=== PATIENT | female | born 1950 | race Caucasian/White ===

== ENCOUNTER 2021-11-24 07:24 | Inpatient (IN) | payer MEDICARE, MEDICAID, SELFPAY ==
[2021-11-24] VITALS (35 sets, daily range): BP systolic 75–154; BP diastolic 52–98; PULSE 77–138; RESP 12–28; TEMP 36.2–38.8; O2SAT 91–100; BMI 35.1; BMI 34.6
--- NOTE | 2021-11-24 07:28 | ED.RN ---
PT IMMEDIATELY PLACED ON BIPAP. EMS ONLY KNEW NAME AND , THE PT THAT PULLED UP UNDER THAT INFO ADDRESS IS SIGNIFICANTLY DIFFERENT THAT WERE EMS TRANSPORTED FROM. WAITING ON FAMILY TO ARRIVE FOR INFORMATION.
--- NOTE | 2021-11-24 07:31 | RAD_ITS ---
STUDY: X-RAY CHEST REASON FOR EXAM: Female, 71 years old. Sob TECHNIQUE: Single AP portable view of the chest. COMPARISON: None. FINDINGS: EKG electrodes are seen. Patchy right lower lobe infiltrate. Left lower lobe consolidation with small left pleural effusion. There is moderate cardiac enlargement. Normal mediastinum and sona. Normal visualized pulmonary arteries. Normal visualized aortic arch and descending thoracic aorta. There are diffuse degenerative changes of the visualized thoracic spine. Normal visualized ribs, clavicles, and shoulders. There is no demonstrated abnormality of the visualized soft tissue structures of the upper abdomen. RAD/Chest 1 View (Portable) IMPRESSION: Left lower lobe consolidation. Small left pleural effusion. Patchy right basilar infiltrate. Cardiomegaly. Electronically Signed: Thomas Ahumada MD at 9:36 EST , Service support ,
--- NOTE | 2021-11-24 07:31 | SDCEKG_ITS ---
Test Reason : UNRESPONSIVE/SOB Blood Pressure : / mmHG Vent. Rate : 138 BPM Atrial Rate : 138 BPM P-R Int : 120 ms QRS Dur : 114 ms QT Int : 278 ms P-R-T Axes : 057 -58 102 degrees QTc Int : 421 ms Sinus tachycardia Left axis deviation Incomplete left bundle branch block Marked ST abnormality, possible lateral subendocardial injury Abnormal ECG Confirmed by HOLLY STUBBS, NUHA ([id number]), video tape editor JOAN VALDEZ ([id number]) on 11/25/2021 11:40:36 AM Referred By: SAMANTA Confirmed By:NUHA BARRERA MD
--- NOTE | 2021-11-24 07:43 | EDS_ITS ---
HPI History of Present Illness Chief Complaint: Alt LOC Narrative Narrative: Patient apparently is on oxygen. I do not have much more information other than this, apparently she was found by family and EMS was called. She was found without her oxygen and minimally responsive. I went into the room as the patient arrived, EMS had no further information. She was placed on a BiPAP by respiratory just prior to me walking in the room. PFSH PFSH Medical History unable to obtain Home Medications Unobtainable 11/24/21 [History Last Taken Unknown] Allergy/AdvReac Type Severity Reaction Status Date / Time Unable to Assess Allergy Unverified 11/24/21 07:25 Social History Smoking Status: Unknown if ever smoked ROS ROS ED ROS Narrative Past medical history: Unknown at this time. Medications: Unknown at this time. Social history: Unknown Review of systems: Unable secondary to patient's mental status EXAM Physical Exam Narrative Exam Narrative: Physical exam General: Patient is minimally responsive, see GCS below. Head: Normocephalic, Atraumatic Eyes: Conjunctiva not pale ENT: Somewhat dry mucous membranes Neck: Supple, Nontender, No lymphadenopathy Cardiovascular: Regular tachycardia Respiratory: She is on BiPAP, she does have bilateral breath sounds. Abdomen: Soft, no obvious distention, she does not withdraw when I press on the abdomen Back: Nontender, Normal Inspection. No obvious abnormalities. Extremities: Nontender, bilateral symmetric lower extremity edema Skin: Normal color, No rash. She does not appear cyanotic. Neurological: GCS: V:2, E:3, M:4 T:9 Psychological: Unable Const Vital Signs: 11/24/21 07:25 11/24/21 07:28 11/24/21 07:29 Temperature 98.2 F 98.2 F Temperature Source Temporal Temporal Pulse Rate 138 H 136 H Respiratory Rate 28 H 28 H Blood Pressure 154/78 H 154/78 H Blood Pressure Mean 103 103 Pulse Ox 100 Oxygen Delivery Method Bi-pap Bi-pap Bi-pap Fraction of Inspired Oxygen (FIO2) 100 11/24/21 07:38 11/24/21 07:58 11/24/21 08:21 Temperature 100.9 F H 101.8 F H Temperature Source Core Core Pulse Rate 130 H 131 H Respiratory Rate 16 20 H Blood Pressure 120/63 Blood Pressure Mean 82 Pulse Ox 96 95 Oxygen Delivery Method Bi-pap Fraction of Inspired Oxygen (FIO2) 45 11/24/21 08:28 11/24/21 09:00 11/24/21 09:50 Temperature 101.8 F H 101.8 F H 100.8 F H Temperature Source Core Core Core Pulse Rate 123 H 123 H 114 H Respiratory Rate 22 H 22 H 13 Blood Pressure 142/72 H 142/72 H 120/71 Blood Pressure Mean 95 95 87 Pulse Ox 93 93 98 Oxygen Delivery Method Bi-pap Bi-pap Ambu-Bag Fraction of Inspired Oxygen (FIO2) 45 45 11/24/21 09:59 11/24/21 10:00 Temperature 100.1 F H Temperature Source Core Pulse Rate 101 H Respiratory Rate 16 Blood Pressure 106/68 Blood Pressure Mean 80 Pulse Ox 97 Oxygen Delivery Method Mechanical Ventilator Fraction of Inspired Oxygen (FIO2) 80 MDM MDM MDM Narrative Medical decision making narrative: Procedure note: Endotracheal intubation Emergent procedure Indication hypercarbia not improved with BiPAP 20 mg of etomidate and 100 mg of rocuronium was used. A 4 oh Mac blade and a 7.5 endotracheal tube was inserted through the cords by me Patient had bilateral breath sounds Chest x-ray reveals adequate placement Patient is now on a ventilator and tolerating the ventilator well. Medical decision making: Patient was tried on BiPAP with maximal settings however the bicarb continued to climb, her mental status stayed about the same or worsened. The decision was made to endotracheally intubate. I do have a high suspicion for COVID, I use precautions for intubation. Patient will be admitted. Lab Data Labs: Laboratory Results - last 24 hr 11/24/21 11/24/21 11/24/21 05:00 07:35 07:35 WBC 5.5 RBC 3.86 L Hgb 11.2 L Hct 38.4 MCV 99.5 H MCH 29.0 MCHC 29.2 L RDW Std Deviation 49.1 H RDW Coeff of Amanda 13.3 Plt Count 81 L MPV 11.2 Immature Gran % (Auto) 2.000 H Neut % (Auto) 80.5 H Lymph % (Auto) 9.6 L [place] % (Auto) 7.5 Eos % (Auto) 0.0 Baso % (Auto) 0.4 Absolute Neuts (auto) 4.4 Absolute Lymphs (auto) 0.53 L Nucleated RBC % 0 Platelet Estimate SLT DEC PT 12.6 INR 1.0 Sodium 142 Potassium 4.3 Chloride 101 Carbon Dioxide 37.0 H Anion Gap 4 L BUN 18 Creatinine 0.80 Estim Creat Clear Calc 57.20 Est GFR (MDRD) Af Amer 91 Est GFR (MDRD) Non-Af 75 BUN/Creatinine Ratio 22.6 H Glucose 280 H Lactic Acid Calcium 9.2 Total Bilirubin 0.80 AST 43 H ALT 46 Alkaline Phosphatase 89 Troponin I High Sens 21 B-Natriuretic Peptide Total Protein 8.4 H Albumin 3.3 Globulin 5.1 H Albumin/Globulin Ratio 0.6 L Urine Color Urine Clarity Urine pH Ur Specific [place] Urine Protein Urine Glucose (UA) Urine Ketones Urine Occult Blood Urine Nitrite Urine Bilirubin Urine Urobilinogen Ur Leukocyte Esterase Urine RBC Urine WBC Ur Squamous Epith Cells Urine Bacteria Urine Mucus 11/24/21 11/24/21 11/24/21 07:35 07:55 08:00 WBC RBC Hgb Hct MCV MCH MCHC RDW Std Deviation RDW Coeff of Amanda Plt Count MPV Immature Gran % (Auto) Neut % (Auto) Lymph % (Auto) [place] % (Auto) Eos % (Auto) Baso % (Auto) Absolute Neuts (auto) Absolute Lymphs (auto) Nucleated RBC % Platelet Estimate PT INR Sodium Potassium Chloride Carbon Dioxide Anion Gap BUN Creatinine Estim Creat Clear Calc Est GFR (MDRD) Af Amer Est GFR (MDRD) Non-Af BUN/Creatinine Ratio Glucose Lactic Acid 0.8 Calcium Total Bilirubin AST ALT Alkaline Phosphatase Troponin I High Sens B-Natriuretic Peptide 87.4 Total Protein Albumin Globulin Albumin/Globulin Ratio Urine Color Yellow Urine Clarity Sl. Cloudy Urine pH 5.0 Ur Specific [place] 1.025 Urine Protein 100 H Urine Glucose (UA) Normal Urine Ketones 15 H Urine Occult Blood 50 H Urine Nitrite Negative Urine Bilirubin Negative Urine Urobilinogen Normal Ur Leukocyte Esterase Negative Urine RBC 0-5 SEEN Urine WBC 0-5 SEEN Ur Squamous Epith Cells 0-5 SEEN Urine Bacteria 1+ Urine Mucus RARE ABG Data ABG results: ABG 11/24/21 08:12 Specimen Type ART Sample Site R Radial pH 7.27 L Bicarbonate Actual 40.9 H Total CO2 44 Base Excess 14 H O2 Saturation 90 L O2 % 40 ABG pCO2 90.3 H* ABG pO2 72 L Jovon Test Positive Respiration Rate 12 O2 Delivery Device BiPAP Crit Call To/Read Back Yes Clinical Comments 24 8 Radiography Diagnostic Testing: Clinical Impression(s) from Imaging Studies Chest X-Ray 11/24/21 07:31 IMPRESSION: Left lower lobe consolidation. Small left pleural effusion. Patchy right basilar infiltrate. Cardiomegaly. Electronically Signed: Thomas Ahumada MD at 9:36 EST , Service support , Chest X-Ray 11/24/21 09:55 IMPRESSION: The tip of the endotracheal tube is at 3.5 sinus proximal to the judith. The tip of the orogastric tube is below the left hemidiaphragm. Electronically Signed: Thomas Ahumada MD at 10:23 EST , Service support , EKG Initial EKG: Comments: Sinus tachycardia with a rate of 138. Left bundle branch block. Nonspecific ST changes throughout. Interpreted by emergency Dr. Critical Care Time Critical care time (excluding procedures): 30-74 minutes and - (Critical care time of 35 minutes. This does not include any procedures. Time was spent at the bedside, documenting or discussing with consultants.) Discharge Plan Triage Chief Complaint: Alt LOC ED Provider: Tej David Dx/Rx/DC Orders Clinical Impression: Respiratory failure Prescriptions: No Action Unobtainable RF: 0 Primary Care Provider: Care Physician,No Primary Referrals: Care Physician,No Primary [Primary Care Provider] - Disposition Disposition: Acute Care Hospital [facility]
[2021-11-24 07:54] LABS: Absolute Lymphocyte Count 0.53 X10^3/uL (0.83-4.51); Absolute Neutrophil Count 4.4 X10^3/uL (2.0-7.7); Basophil# 0.02 X10^3/uL; Basophil% 0.4 % (0-1); Hematocrit 38.4 % (37-47); Hemoglobin 11.2 g/dL (12.0-15.0); Lymphocyte # 0.53 X10^3/ul (0.83-4.51); Lymphocyte % 9.6 % (19-41); Mean Corp Hgb Conc 29.2 g/dL (32-36); Mean Corpuscular Volume 99.5 fL (81-99); Mean Platelet Vol. 11.2 fl (6.2-12.0); Monocyte# 0.41 X10^3/uL; Monocyte% 7.5 % (0-10); NRBC Flagged by Analyzer 0 % (0-5); Neutrophil # 4.43 X10^3/uL (2.7-7.7); Neutrophil % 80.5 % (47-70); POSITIVE COUNT YES; POSITIVE DIFFERENTIAL YES; Platelet Count 81 K/mm3 (150-450); RBC Distribution Width CV 13.3 % (11.6-14.6); RBC Distribution Width SD 49.1 fl (35.1-43.9); Red Blood Count 3.86 M/mm3 (4.2-5.4); White Blood Count 5.5 K/mm3 (4.4-11.0)
[2021-11-24 08:06] LABS: Color, Urine Yellow (Yellow); Glucose, Dipstick Normal (Normal); Ketone-Dipstick 15 mg/dl (Negative); Leukocyte Esterase-Dipstick Negative /ul (Negative); Nitrite-Dipstick Negative (Negative); Occult Blood-Urine 50 /ul (Negative); Protein-Dipstick 100 mg/dl (Negative); Specific Gravity, Urine 1.025 (1.002-1.030); Urine Bilirubin Dipstick Negative (Negative); Urine Clarity Sl. Cloudy (Clear); Urine Urobilinogen Normal (Normal)
[2021-11-24 08:13] LABS: ALB/GLOB Ratio 0.6 RATIO (0.9-2.4); AST(SGOT) 43 U/L (15-37); Alanine Aminotransfer ALT/SGPT 46 U/L (13-56); Albumin, Serum 3.3 g/dL (3.2-5.0); Alkaline Phosphatase 89 U/L (45-117); Anion Gap 4 (5-15); BNP,B-Type NATRIURETIC PEPTIDE 87.4 pg/mL (0-100); BUN 18 mg/dL (7-18); BUN/Creat Ratio 22.6 RATIO (10-20); Calcium,Total 9.2 mg/dL (8.5-10.1); Chloride 101 mmol/L (98-107); EST Glomerular Filtration Rate 75 mL/min (>60); Est Glom Filt Rate - Afr Amer 91 mL/min (>60); Globulin 5.1 g/dL (2.2-4.2); Glucose 280 mg/dL (74-106); Potassium 4.3 mmol/L (3.5-5.1); Protein, Total 8.4 g/dL (6.4-8.2); Sodium Level 142 mmol/L (136-145); Troponin-I HS 21 pg/mL (3.0-54.0)
[2021-11-24 08:20] LABS: Differential Indicated SCAN CRITERIA MET
[2021-11-24 08:20] LABS: Allen Test Positive; Base Excess 14 mmol/L (-2 to +2); Bicarbonate 40.9 mmol/L (22-26); Blood Gas Specimen Type ART; FI02 40; O2 Delivery Device BiPAP; PO2 72 mmHG (75-100); RR 12; SITE R Radial; SO2 90 % (95-99); Total Carbon Dioxide 44 mmol/L; pCO2 90.3 mmHg (35-45); pH 7.27 (7.35-7.45)
[2021-11-24 08:22] LABS: Platelet Estimate SLT DEC (ADEQ)
--- NOTE | 2021-11-24 08:22 | CPS ---
Critical blood gas values called to Dr David at 0819
[2021-11-24 08:25] LABS: Red Blood Cells-Urine 0-5 SEEN /hpf (0-5); Squamous Epithelial Cells - UA 0-5 SEEN /hpf (5-10); White Blood Cells 0-5 SEEN /hpf (0-5)
[2021-11-24 08:26] LABS: Bacteria 1+ /hpf (None Seen); Mucous, Urine RARE /hpf (<or=2+)
[2021-11-24 08:28] LABS: Prothrombin Time (Protime)PT. 12.6 SECONDS (11.7-14.9)
[2021-11-24 08:41] LABS: Lactic Acid 0.8 mmol/L (0.4-1.9)
[2021-11-24] MEDS: Acetaminophen 650 MG Suppository RC (08:45)
--- NOTE | 2021-11-24 09:55 | RAD_ITS ---
STUDY: X-RAY CHEST REASON FOR EXAM: Female, 71 years old. Endotracheal tube placement. TECHNIQUE: Single AP portable view of the chest. COMPARISON: Comparison is made with prior examination dated 11/24/2021 at 8:26 AM. FINDINGS: An endotracheal tube has been placed. The tip is at 3.5 cm proximal to the judith. An orogastric tube is seen with the tip below the left hemidiaphragm. EKG electrodes are seen. Stable left lower lobe consolidation and patchy infiltrate in the right lower lobe. Blunting of the left costophrenic angle. There is moderate cardiac enlargement. Normal mediastinum and sona. Normal visualized pulmonary arteries. Normal visualized aortic arch and descending thoracic aorta. There are diffuse degenerative changes of the visualized thoracic spine. Normal visualized ribs, clavicles, and shoulders. There is no demonstrated abnormality of the visualized soft tissue structures of the upper abdomen. RAD/Chest 1 View (Portable) IMPRESSION: The tip of the endotracheal tube is at 3.5 sinus proximal to the judith. The tip of the orogastric tube is below the left hemidiaphragm. Electronically Signed: Thomas Ahumada MD at 10:23 EST , Service support ,
[2021-11-24] MEDS: Etomidate 20 MG/10 ML Vial IV (10:08)
[2021-11-24] MEDS: Rocuronium Bromide 50 MG/5 ML Vial 100 MG IV (10:09)
--- NOTE | 2021-11-24 10:26 | NURSING ---
DR LOURDES [place]
--- NOTE | 2021-11-24 10:38 | ED.RN ---
MULTIPLE BED BUGS FOUND ON PT.
--- NOTE | 2021-11-24 10:38 | NURSING ---
ICU TERELETSKY RESP FAILURE
--- NOTE | 2021-11-24 10:45 | NURSING ---
ICU 1
[2021-11-24 11:10] LABS: Allen Test Positive; Base Excess 16 mmol/L (-2 to +2); Bicarbonate 42.5 mmol/L (22-26); Blood Gas Specimen Type ART; FI02 35; O2 Delivery Device BiPAP; PO2 64 mmHG (75-100); RR 12; SITE R Radial; SO2 87 % (95-99); Total Carbon Dioxide 45 mmol/L; pCO2 92.1 mmHg (35-45); pH 7.27 (7.35-7.45)
--- NOTE | 2021-11-24 12:41 | CON.PCM.CC_ITS ---
Assessment & Plan Assessment/Plan (1) Respiratory failure: PLAN: RECOMMENDATIONS: 1. Continue assist control mode of mechanical ventilation. Wean FiO2/PEEP for saturations greater than 90%. 2. Start remdesivir and Decadron given positive COVID PCR. 3. Continue empiric antimicrobials. 4. Propofol and fentanyl for sedation. 5. Discontinue IV fluids. 6. Continue bronchodilators. 7. Continue appropriate GI and DVT prophylaxis. 8. Check D-dimer, procalcitonin and CRP. 9. Send toxicology screen. IMPRESSIONS: 1. Acute on chronic combined respiratory failure secondary to COVID-19 pneumonia The patient has reported history of COPD of unknown severity which is likely in a state of exacerbation due to underlying COVID-19. The patient was intubated in the emergency department on November 24 after she failed to respond to noninv asive positive pressure ventilatory support. She will be continued on assist control mode of mechanical ventilation. FiO2 and PEEP will be weaned for saturations greater than 90%. The patient will be started on remdesivir and Decadron. We will check D-dimer, procalcitonin and CRP. Empiric antimicrobials will be continued, pending finalized culture results. 2. Encephalopathy Likely metabolic in nature and related to CO2 retention in the setting of COPD. Anticipate improvement in mentation with invasive mechanical ventilatory support. Obtain repeat arterial blood gas. TIME: 38 minutes of critical care time, independent of procedures, was spent addressing the patient's acute on chronic combined respiratory failure secondary to COVID-19 pneumonia, encephalopathy, review of all data and collaboration with the care team. HPI Consult Data Date of Consult: 11/25/21 HPI Narrative Reason for Consultation: Acute on chronic combined respiratory failure HPI Narrative: The patient is a 71-year-old female, with a history as outlined below, who presented to the emergency department on November 24 after being found minimally responsive by family. History pertinent to the patient's hospitalization is quite limited, as the patient is currently intubated and there is no family available to bedside. The patient does have a history of COPD of unknown severity along with chronic CO2 retention and chronic hypoxemic respiratory failure. On presentation to the emergency department, the patient was noted to be febrile, tachycardic and tachypneic. Initial laboratory evaluation demonstrated no evidence of leukocytosis. Chemistry profile was notable for a bicarbonate of 37. BNP was within normal limits. Urinalysis was largely unremarkable. The patient was immediately placed on BiPAP therapy. Subsequent arterial blood gas demonstrated a pH of 7.27 with a PCO2 of 90 and PO2 of 72. Despite the use of noninvasive positive pressure ventilatory support, the patient remained acidotic. Therefore, the decision was made to proceed with intubation. Chest imaging demonstrated evidence of cardiomegaly with a right basilar infiltrate and left lower lobe consolidation. The patient was placed on antimicrobials and admitted to the medical intensive care unit for further management. [facility] Medical History unable to obtain Home Medications aspirin 81 mg PO DAILY 11/24/21 [History Last Taken Unknown] diclofenac potassium 50 mg PO DAILY 11/24/21 [History Last Taken Unknown] dicyclomine 20 mg PO BID 11/24/21 [History Last Taken Unknown] furosemide 20 mg PO BID 11/24/21 [History Last Taken Unknown] gabapentin 300 mg PO TID 11/24/21 [History Last Taken Unknown] losartan 100 mg PO DAILY 11/24/21 [History Last Taken Unknown] metformin 500 mg PO BID 11/24/21 [History Last Taken Unknown] metoprolol succinate 50 PO DAILY 11/24/21 [History Last Taken Unknown] mirabegron [Myrbetriq] 25 mg PO DAILY 11/24/21 [History Last Taken Unknown] nitroglycerin 0.4 mg SUBLINGUAL PRN 11/24/21 [History Last Taken Unknown] nystatin 1 applic TOPICAL BID 11/24/21 [History Last Taken Unknown] omeprazole 20 mg PO DAILY 11/24/21 [History Last Taken Unknown] oxybutynin chloride 5 mg PO DAILY 11/24/21 [History Last Taken Unknown] simvastatin 10 mg PO QHS 11/24/21 [History Last Taken Unknown] Allergy/AdvReac Type Severity Reaction Status Date / Time Unable to Assess Allergy Verified 11/24/21 17:01 Family History unable to obtain Surgical History unable to obtain Social History Smoking Status: Unknown if ever smoked ROS Review of Systems ROS Unobtainable: due to endotracheal tube and due to mental status Physical Exam Const no apparent distress General Appearance: intubated and patient mechanically ventilated Nutritional Appearance: obese HEENT normocephalic and head/scalp atraumatic Mouth: endotracheal tube in place and OG tube in place Eyes PERRL and conjunctivae normal Neck supple General: trachea midline Resp Auscultation: rales and diminished lung sounds Cardio S1 normal heart sound and S2 normal heart sound Rate: tachycardic GI normal to inspection, nondistended, normoactive bowel sounds Extremity no clubbing, cyanosis or edema Skin no rashes or lesions noted Neuro Sensorium / Orientation: sedated on vent Lab / Micro Data Result Diagrams: 11/25/21 04:05 11/25/21 04:05 Labs: Laboratory Results - last 24 hr 11/24/21 05:00: PT 12.6, INR 1.0 11/24/21 07:35: WBC 5.5, RBC 3.86 L, Hgb 11.2 L, Hct 38.4, MCV 99.5 H, MCH 29.0, MCHC 29.2 L, RDW Std Deviation 49.1 H, RDW Coeff of Amanda 13.3, Plt Count 81 L, MPV 11.2, Immature Gran % (Auto) 2.000 H, Neut % (Auto) 80.5 H, Lymph % (Auto) 9.6 L, [place] % (Auto) 7.5, Eos % (Auto) 0.0, Baso % (Auto) 0.4, Absolute Neuts (auto) 4.4, Absolute Lymphs (auto) 0.53 L, Nucleated RBC % 0, Platelet Estimate SLT 11/24/21 07:35: Sodium 142, Potassium 4.3, Chloride 101, Carbon Dioxide 37.0 H, Anion Gap 4 L, BUN 18, Creatinine 0.80, Estim Creat Clear Calc 57.20, Est GFR (MDRD) Af Amer 91, Est GFR (MDRD) Non-Af 75, BUN/Creatinine Ratio 22.6 H, Glucose 280 H, Calcium 9.2, Total Bilirubin 0.80, AST 43 H, ALT 46, Alkaline Phosphatase 89, Troponin I High Sens 21, Total Protein 8.4 H, Albumin 3.3, Globulin 5.1 H, Albumin/Globulin Ratio 0.6 L 11/24/21 07:35: B-Natriuretic Peptide 87.4 11/24/21 07:55: Urine Color Yellow, Urine Clarity Sl. Cloudy, Urine pH 5.0, Ur Specific [place] 1.025, Urine Protein 100 H, Urine Glucose (UA) Normal, Urine Ketones 15 H, Urine Occult Blood 50 H, Urine Nitrite Negative, Urine Bilirubin Negative, Urine Urobilinogen Normal, Ur Leukocyte Esterase Negative, Urine RBC 0-5 SEEN, Urine WBC 0-5 SEEN, Ur Squamous Epith Cells 0-5 SEEN, Urine Bacteria 1+, Urine Mucus RARE 11/24/21 08:00: Lactic Acid 0.8 ABG Data ABG results: ABG 11/24/21 11/24/21 08:12 09:12 Specimen Type ART ART Sample Site R Radial R Radial pH 7.27 L 7.27 L Bicarbonate Actual 40.9 H 42.5 H Total CO2 44 45 Base Excess 14 H 16 H O2 Saturation 90 L 87 L O2 % 40 35 ABG pCO2 90.3 H* 92.1 H* ABG pO2 72 L 64 L Jovon Test Positive Positive Respiration Rate 12 12 O2 Delivery Device BiPAP BiPAP Crit Call To/Read Back Yes Yes Blood Gas Notified Whom raissaici Clinical Comments 24 8 24 8 Radiology Impression Chest X-Ray 11/24/21 07:31 IMPRESSION: Left lower lobe consolidation. Small left pleural effusion. Patchy right basilar infiltrate. Cardiomegaly. Electronically Signed: Thomas Ahumada MD at 9:36 EST , Service support , Chest X-Ray 11/24/21 09:55 IMPRESSION: The tip of the endotracheal tube is at 3.5 sinus proximal to the judith. The tip of the orogastric tube is below the left hemidiaphragm. Electronically Signed: Thomas Ahumada MD at 10:23 EST , Service support , Charges/Coding Procedures Hospitalists Procedures: [id number] Critial Care 1st Hr
[2021-11-24] MEDS: Ipratropium/Albuterol Sulfate 3 ML AMPUL.NEB INHALATION ×2 (12:53→19:09)
[2021-11-24] MEDS: Propofol 10MG/Ml 1,000 MG/100 ML Bottle 5.7 MG CONT INF (13:15)
[2021-11-24] MEDS: Piperacil/Tazobactam 3.375 GM/50 ML ML IV ×2 (13:42→22:18)
[2021-11-24] MEDS: dexAMETHasone 10 MG/ML Vial 6 MG IV (13:42)
[2021-11-24] MEDS: Enoxaparin 40 MG/0.4 ML Syringe SC (13:42)
[2021-11-24] MEDS: Chlorhexidine 15 ML PO ×2 (13:56→22:08)
[2021-11-24 13:57] LABS: D-Dimer Quantitative (DVT/PE) 1.56 FEU/ug/m (0.27-0.49)
[2021-11-24 14:22] LABS: Allen Test Positive; Base Excess 14 mmol/L (-2 to +2); Bicarbonate 36.8 mmol/L (22-26); FI02 80; Mode AC; O2 Delivery Device Adult Vent; PEEP 5; PO2 41 mmHG (75-100); RR 16; SITE R Radial; SO2 81 % (95-99); Total Carbon Dioxide 38 mmol/L; Vt 450; pCO2 44.3 mmHg (35-45); pH 7.53 (7.35-7.45)
[2021-11-24 14:24] LABS: Blood Gas Specimen Type VEN
[2021-11-24 14:34] LABS: Amphetamine Urine VISTA NEGATIVE (<1000 ng/mL); Barbiturate Urine VISTA NEGATIVE (< 200 ng/mL); Benzodiazepine Urine VISTA NEGATIVE (< 200 ng/mL); Cocaine Urine VISTA NEGATIVE (< 300 ng/mL); Ecstacy Urine VISTA NEGATIVE (< 500 ng/mL); Methadone Urine VISTA NEGATIVE (< 300 ng/mL); PCP Urine VISTA NEGATIVE (< 25 ng/mL); THC Urine VISTA NEGATIVE (< 50 ng/mL); Vista UDS pH Range 5
--- NOTE | 2021-11-24 14:43 | CASEMGMT ---
Social Work Physician notified this SW that pt's and dgts phone numbers on file have been disconnected. Phone call to [employer] who cofirms that they are pt oxygen supplier. [employer] worker able to provide 4 additional phone numbers that they had on file. SW placed call to number associated with dgt Cele and VM left with no personal information requesting return call. Physician provided remaining three numbers[address] Dr. Obregon reports the following are working numbers for pt's spouse Armani [phone] and [phone]. Demographic sheet updated. LILY placed call to [facility] who state pt's PCP is Carol Carlisle CNP. Demographic sheet updated. [facility] states pt does have a home concentrator for 2L continuous oxygen. Phone call to [facility] and pt does have services. Nicole Montiel is her Collection Correspondent [phone]. Pt receives aid services for 2 hours on Tuesdays and , has an emergency response system and 7 home delivered meals a week. LILY updated Nicole on pt admission. LILY will continue to follow. SYDNEY Brannon
[2021-11-24] MEDS: Nystatin Powder 15gm Bottle 1 APPLIC TOPICAL ×2 (15:02→22:18)
[2021-11-24 15:59] LABS: CPK Total, Creatine Kinase 27 U/L (26-192); Triglycerides 110 mg/dL
--- NOTE | 2021-11-24 18:10 | PCM.HP.STD ---
HPI - General General Date of Admission: 11/24/21 Date of Service: 11/24/21 HPI Narrative POLI CROOKS, is a 71 F who presents to the emergency room at [facility] after being brought in by EMS after her family found her minimally responsive at home. Patient is on home O2 at all times, getting a history from the family members were difficult and the full scope of the patient's medical problems were not known at the time she was seen in the emergency room. Patient was placed on BiPAP shortly after coming into the emergency room due to extreme hypoxia, and ABG was obtained which showed the patient to be acidotic and hypercapnic as well as hypoxic. Emergency room physician attempted to stabilize the patient on BiPAP but ultimately was unable to do this and the patient had to be intubated after the second blood gas showed no improvement in her numbers. Lab obtained in the emergency room showed a normal white blood cell count, patient's chemistry profile was abnormal for glucose of 280, patient's AST was elevated at 43, beta natruretic peptide was 87.4 and lactic acid was 0.08. Patient's chest x-ray showed bilateral infiltrates suggestive of COVID-19. A PCR for COVID-19 was ordered by the emergency room physician and I was contacted to admit the patient to ICU. Patient will be placed on IV corticosteroids, when the results of the PCR are known, I will most likely place the patient on remdesivir if she is positive for COVID-I cannot be sure of the actual timeframe of the patient's illness although the patient's told the emergency room physician she had been sick a couple of days. Patient not believed to be vaccinated [facility] Medical History unable to obtain Home Medications aspirin 81 mg PO DAILY 11/24/21 [History Last Taken Unknown] diclofenac potassium 50 mg PO DAILY 11/24/21 [History Last Taken Unknown] dicyclomine 20 mg PO BID 11/24/21 [History Last Taken Unknown] furosemide 20 mg PO BID 11/24/21 [History Last Taken Unknown] gabapentin 300 mg PO TID 11/24/21 [History Last Taken Unknown] losartan 100 mg PO DAILY 11/24/21 [History Last Taken Unknown] metformin 500 mg PO BID 11/24/21 [History Last Taken Unknown] metoprolol succinate 50 PO DAILY 11/24/21 [History Last Taken Unknown] mirabegron [Myrbetriq] 25 mg PO DAILY 11/24/21 [History Last Taken Unknown] nitroglycerin 0.4 mg SUBLINGUAL PRN 11/24/21 [History Last Taken Unknown] nystatin 1 applic TOPICAL BID 11/24/21 [History Last Taken Unknown] omeprazole 20 mg PO DAILY 11/24/21 [History Last Taken Unknown] oxybutynin chloride 5 mg PO DAILY 11/24/21 [History Last Taken Unknown] simvastatin 10 mg PO QHS 11/24/21 [History Last Taken Unknown] Allergy/AdvReac Type Severity Reaction Status Date / Time Unable to Assess Allergy Verified 11/24/21 17:01 Family History unable to obtain Surgical History unable to obtain Social History Smoking Status: Unknown if ever smoked ROS Review of Systems ROS Unobtainable: due to endotracheal tube Vital Signs Vital Signs Vital Signs: 11/24/21 07:25 11/24/21 07:28 11/24/21 07:29 Temperature 98.2 F 98.2 F Temperature Source Temporal Temporal Pulse Rate 138 H 136 H Respiratory Rate 28 H 28 H Respiratory Effort Respiratory Pattern Blood Pressure 154/78 H 154/78 H Blood Pressure [BP] Blood Pressure Mean 103 103 Blood Pressure Mean [BP] Blood Pressure Source Blood Pressure Source [BP] Blood Pressure Position Blood Pressure Position [BP] Blood Pressure Location Blood Pressure Location [BP] Pulse Ox 100 Oxygen Delivery Method Bi-pap Bi-pap Bi-pap Fraction of Inspired Oxygen (FIO2) 100 11/24/21 07:38 11/24/21 07:58 11/24/21 08:21 Temperature 100.9 F H 101.8 F H Temperature Source Core Core Pulse Rate 130 H 131 H Respiratory Rate 16 20 H Respiratory Effort Respiratory Pattern Blood Pressure 120/63 Blood Pressure [BP] Blood Pressure Mean 82 Blood Pressure Mean [BP] Blood Pressure Source Blood Pressure Source [BP] Blood Pressure Position Blood Pressure Position [BP] Blood Pressure Location Blood Pressure Location [BP] Pulse Ox 96 95 Oxygen Delivery Method Bi-pap Fraction of Inspired Oxygen (FIO2) 45 11/24/21 08:28 11/24/21 08:29 11/24/21 09:00 Temperature 101.8 F H 101.8 F H Temperature Source Core Core Pulse Rate 123 H 123 H Respiratory Rate 22 H 25 H 22 H Respiratory Effort Respiratory Pattern Blood Pressure 142/72 H 142/72 H Blood Pressure [BP] Blood Pressure Mean 95 95 Blood Pressure Mean [BP] Blood Pressure Source Blood Pressure Source [BP] Blood Pressure Position Blood Pressure Position [BP] Blood Pressure Location Blood Pressure Location [BP] Pulse Ox 93 92 93 Oxygen Delivery Method Bi-pap Bi-pap Fraction of Inspired Oxygen (FIO2) 45 35 45 11/24/21 09:50 11/24/21 09:59 11/24/21 10:00 Temperature 100.8 F H 100.1 F H Temperature Source Core Core Pulse Rate 114 H 101 H Respiratory Rate 13 16 16 Respiratory Effort Respiratory Pattern Blood Pressure 120/71 106/68 Blood Pressure [BP] Blood Pressure Mean 87 80 Blood Pressure Mean [BP] Blood Pressure Source Blood Pressure Source [BP] Blood Pressure Position Blood Pressure Position [BP] Blood Pressure Location Blood Pressure Location [BP] Pulse Ox 98 97 Oxygen Delivery Method Ambu-Bag Mechanical Ventilator Fraction of Inspired Oxygen (FIO2) 80 11/24/21 10:37 11/24/21 10:52 11/24/21 11:25 Temperature 99.6 F H 99.5 F H Temperature Source Core Core Pulse Rate 92 91 105 H Respiratory Rate 16 16 18 Respiratory Effort Respiratory Pattern Blood Pressure 100/63 91/55 L 114/64 Blood Pressure [BP] Blood Pressure Mean 75 67 80 Blood Pressure Mean [BP] Blood Pressure Source Monitor Blood Pressure Source [BP] Blood Pressure Position Semi-Fowlers Blood Pressure Position [BP] Blood Pressure Location Left Arm Blood Pressure Location [BP] Pulse Ox 94 93 95 Oxygen Delivery Method Mechanical Ventilator Mechanical Ventilator Mechanical Ventilator Fraction of Inspired Oxygen (FIO2) 100 11/24/21 11:28 11/24/21 11:35 11/24/21 11:45 Temperature 97.1 F L Temperature Source Temporal Pulse Rate 106 H 112 H 105 H Respiratory Rate 16 16 Respiratory Effort Respiratory Pattern Blood Pressure 130/61 H 118/61 Blood Pressure [BP] Blood Pressure Mean 84 80 Blood Pressure Mean [BP] Blood Pressure Source Monitor Monitor Blood Pressure Source [BP] Blood Pressure Position Semi-Fowlers Semi-Fowlers Blood Pressure Position [BP] Blood Pressure Location Right Arm Right Arm Blood Pressure Location [BP] Pulse Ox 99 100 Oxygen Delivery Method Mechanical Ventilator Mechanical Ventilator Fraction of Inspired Oxygen (FIO2) 100 100 11/24/21 12:00 11/24/21 12:53 11/24/21 13:00 Temperature Temperature Source Pulse Rate 109 H 101 H Respiratory Rate 16 18 Respiratory Effort Mechanically Ventilated Respiratory Pattern Tachypnea Blood Pressure Blood Pressure [BP] 102/63 Blood Pressure Mean Blood Pressure Mean [BP] 76 Blood Pressure Source Blood Pressure Source [BP] Monitor Blood Pressure Position Blood Pressure Position [BP] Semi-Fowlers Blood Pressure Location Blood Pressure Location [BP] Left Arm Pulse Ox 91 97 Oxygen Delivery Method Mechanical Ventilator Nasal Cannula Fraction of Inspired Oxygen (FIO2) 100 60 11/24/21 14:00 11/24/21 15:00 11/24/21 15:52 Temperature Temperature Source Pulse Rate 104 H 116 H 99 Respiratory Rate 18 22 H Respiratory Effort Respiratory Pattern Blood Pressure Blood Pressure [BP] 75/52 L 91/55 L Blood Pressure Mean Blood Pressure Mean [BP] 59 67 Blood Pressure Source Blood Pressure Source [BP] Monitor Monitor Blood Pressure Position Blood Pressure Position [BP] Semi-Fowlers Semi-Fowlers Blood Pressure Location Blood Pressure Location [BP] Left Arm Left Arm Pulse Ox 99 98 Oxygen Delivery Method Mechanical Ventilator Mechanical Ventilator Fraction of Inspired Oxygen (FIO2) 99 100 11/24/21 16:00 11/24/21 17:00 11/24/21 17:24 Temperature Temperature Source Pulse Rate 99 99 98 Respiratory Rate 16 18 16 Respiratory Effort Mechanically Ventilated Respiratory Pattern Normal Blood Pressure Blood Pressure [BP] 97/58 L 114/60 Blood Pressure Mean Blood Pressure Mean [BP] 71 78 Blood Pressure Source Blood Pressure Source [BP] Monitor Monitor Blood Pressure Position Blood Pressure Position [BP] Semi-Fowlers Semi-Fowlers Blood Pressure Location Blood Pressure Location [BP] Left Arm Left Arm Pulse Ox 97 99 98 Oxygen Delivery Method Mechanical Ventilator Mechanical Ventilator Fraction of Inspired Oxygen (FIO2) 100 90 11/24/21 18:00 Temperature 101.5 F H Temperature Source Core Pulse Rate 97 Respiratory Rate 18 Respiratory Effort Respiratory Pattern Blood Pressure Blood Pressure [BP] 126/98 H Blood Pressure Mean Blood Pressure Mean [BP] 107 Blood Pressure Source Blood Pressure Source [BP] Monitor Blood Pressure Position Blood Pressure Position [BP] Semi-Fowlers Blood Pressure Location Blood Pressure Location [BP] Right Arm Pulse Ox 96 Oxygen Delivery Method Mechanical Ventilator Fraction of Inspired Oxygen (FIO2) 90 Weight Weight: 94.347 kg Body Mass Index (BMI) 34.6 Physical Exam Narrative Patient is sedated and on the ventilator Const no apparent distress Constitutional Narrative: Patient appears her stated age General Appearance: well kempt and well developed Orientation / Consciousness: awake, oriented to person, oriented to place and oriented to time HEENT normocephalic, head/scalp atraumatic, hearing grossly normal bilaterally and moist oral mucous membranes Eyes PERRL, EOMs intact bilaterally and conjunctivae normal Neck nuchal rigidity, supple, no JVD, thyroid normal and no carotid bruits General: trachea midline Resp normal respiratory effort, no retractions, no use of accessory muscles and clear to auscultation bilaterally Auscultation: Negative for rales, rhonchi or wheezes Cardio regular rate, regular rhythm, S1 normal heart sound, S2 normal heart sound, no murmurs, no rub and no gallops GI normal to inspection, nondistended, normoactive bowel sounds and non-distended Extremity no clubbing, cyanosis or edema Skin no rashes or lesions noted General Skin Exam: no breakdown Neuro no sensory deficits noted Neuro Narrative: Patient is sedated and on the ventilator Psych Psych Narrative: Patient is sedated and on the ventilator Results Lab / Micro Data Result Diagrams: 11/24/21 07:35 11/24/21 07:35 Labs: Laboratory Results - last 24 hr 11/24/21 05:00: PT 12.6, INR 1.0 11/24/21 07:35: WBC 5.5, RBC 3.86 L, Hgb 11.2 L, Hct 38.4, MCV 99.5 H, MCH 29.0, MCHC 29.2 L, RDW Std Deviation 49.1 H, RDW Coeff of Amanda 13.3, Plt Count 81 L, MPV 11.2, Immature Gran % (Auto) 2.000 H, Neut % (Auto) 80.5 H, Lymph % (Auto) 9.6 L, [place] % (Auto) 7.5, Eos % (Auto) 0.0, Baso % (Auto) 0.4, Absolute Neuts (auto) 4.4, Absolute Lymphs (auto) 0.53 L, Nucleated RBC % 0, Platelet Estimate SLT 11/24/21 07:35: Sodium 142, Potassium 4.3, Chloride 101, Carbon Dioxide 37.0 H, Anion Gap 4 L, BUN 18, Creatinine 0.80, Estim Creat Clear Calc 57.20, Est GFR (MDRD) Af Amer 91, Est GFR (MDRD) Non-Af 75, BUN/Creatinine Ratio 22.6 H, Glucose 280 H, Calcium 9.2, Total Bilirubin 0.80, AST 43 H, ALT 46, Alkaline Phosphatase 89, Troponin I High Sens 21, Total Protein 8.4 H, Albumin 3.3, Globulin 5.1 H, Albumin/Globulin Ratio 0.6 L 11/24/21 07:35: B-Natriuretic Peptide 87.4 11/24/21 07:55: Urine Color Yellow, Urine Clarity Sl. Cloudy, Urine pH 5.0, Ur Specific [place] 1.025, Urine Protein 100 H, Urine Glucose (UA) Normal, Urine Ketones 15 H, Urine Occult Blood 50 H, Urine Nitrite Negative, Urine Bilirubin Negative, Urine Urobilinogen Normal, Ur Leukocyte Esterase Negative, Urine RBC 0-5 SEEN, Urine WBC 0-5 SEEN, Ur Squamous Epith Cells 0-5 SEEN, Urine Bacteria 1+, Urine Mucus RARE 11/24/21 07:55: Urine Opiates Screen NEGATIVE, Urine Methadone Screen NEGATIVE, Ur Barbiturates Screen NEGATIVE, Ur Phencyclidine Scrn NEGATIVE, Ur Amphetamines Screen NEGATIVE, U Methamphetamin-MDMA NEGATIVE, U Benzodiazepines Scrn NEGATIVE, Urine Cocaine Screen NEGATIVE, U Cannabinoids Screen NEGATIVE, Ur Drug Screen Comment 11/24/21 08:00: Lactic Acid 0.8 11/24/21 09:05: COVID-19 (ISA) Detected 11/24/21 13:30: D-Dimer Quant (PE/DVT) 1.56 H* 11/24/21 14:00: Total Creatine Kinase 27, Triglycerides 110 11/24/21 14:05: C-React Prot Ext Range 112.00 H 11/24/21 14:05: Procalcitonin 0.20 H Micro: Microbiology 11/24/21 10:01 Sputum, Expectorated/Coughed Gram Stain - Final ABG Data ABG results: ABG 11/24/21 11/24/21 11/24/21 08:12 09:12 13:02 Specimen Type ART ART WHIT Sample Site R Radial R Radial R Radial pH 7.27 L 7.27 L 7.53 H Bicarbonate Actual 40.9 H 42.5 H 36.8 H Total CO2 44 45 38 Base Excess 14 H 16 H 14 H O2 Saturation 90 L 87 L 81 L O2 % 40 35 80 ABG pCO2 90.3 H* 92.1 H* 44.3 ABG pO2 72 L 64 L 41 L Jovon Test Positive Positive Positive Respiration Rate 12 12 16 O2 Delivery Device BiPAP BiPAP Adult Vent Vent Mode AC Tidal Volume 450 POC PEEP 5 Crit Call To/Read Back Yes Yes Blood Gas Notified Whom rui Clinical Comments 24 8 24 8 Radiology Impression Chest X-Ray 11/24/21 07:31 IMPRESSION: Left lower lobe consolidation. Small left pleural effusion. Patchy right basilar infiltrate. Cardiomegaly. Electronically Signed: Thomas hAumada MD at 9:36 EST , Service support , Chest X-Ray 11/24/21 09:55 IMPRESSION: The tip of the endotracheal tube is at 3.5 sinus proximal to the judith. The tip of the orogastric tube is below the left hemidiaphragm. Electronically Signed: Thomas Ahumada MD at 10:23 EST , Service support , Assessment & Plan Assessment/Plan (1) Respiratory failure: PLAN: 1. Bilateral pneumonia-felt to be consistent with COVID-19 infection in a patient with underlying chronic lung disease-patient will be admitted to ICU, she will be seen in consultation by critical care, if patient's COVID-19 PCR is positive, patient will be placed on remdesivir and dexamethasone, I will attempt obtain the patient's medical history as soon as I can locate her family physician's name. I have not been able to get the to answer phone calls. #2 combined acute on chronic respiratory failure-patient is currently on the ventilator and sedated #3 type 2 diabetes-patient's blood sugar is elevated, fingerstick blood sugars will be carried out and sliding scale insulin will be used #4 chronic obstructive pulmonary disease-patient is on home O2, I will attempt to get details from the patient's family physician. Charges/Coding Visit Charges Inpatient E&M: 74823 Init Hosp L3
[2021-11-24] MEDS: Insulin Lispro 100 UNIT/ML INSULN.PEN SC (18:22)
--- NOTE | 2021-11-24 18:22 | PN.HOSP_ITS ---
Hospitalist Note I was able to locate the patient's PCP, she sees a nurse practitioner in [place], her medical problems include chronic obstructive pulmonary disease, type 2 diabetes, diabetic neuropathy, hypertension, GERD, osteoarthritis, and chronic anemia. I learned from them that the patient does not always make her office visits and the last time she was seen was September 2021. I do not know the name of the patient's rehabilitation consultant, records were obtained from the patient's PCP which included her medications which I have reviewed and I place her on some these medications.
[2021-11-24] MEDS: Propofol 10MG/Ml 1,000 MG/100 ML Bottle 8.5 MG CONT INF (19:45)
--- NOTE | 2021-11-24 21:36 | NURSING ---
PANDEMIC DOCUMENTATION DATE: 11/24/21 TIME: 8457
[2021-11-24] MEDS: Famotidine 200 MG/20 ML MDV 20 MG in 0.9% Normal Saline (Pres. free 8 ML 300 MG IV (22:06)
[2021-11-24] MEDS: Metoprolol Tartrate 25 MG Tablet GT (22:07)
[2021-11-25] VITALS (34 sets, daily range): BP systolic 95–150; BP diastolic 54–74; PULSE 64–102; RESP 16–26; TEMP 36.9–38.2; O2SAT 94–100
[2021-11-25] MEDS: Insulin Lispro 100 UNIT/ML INSULN.PEN SC ×4 (00:50→17:07)
[2021-11-25] MEDS: Acetaminophen 650 MG/20 ML UDC GT (04:12)
[2021-11-25 04:17] LABS: Absolute Lymphocyte Count 0.34 X10^3/uL (0.83-4.51); Absolute Neutrophil Count 1.7 X10^3/uL (2.0-7.7); Basophil# 0.01 X10^3/uL; Basophil% 0.4 % (0-1); Lymphocyte # 0.34 X10^3/ul (0.83-4.51); Lymphocyte % 14.6 % (19-41); Mean Corpuscular Hgb 28.9 pg (27.0-32.0); Mean Corpuscular Volume 96.5 fL (81-99); Mean Platelet Vol. 9.6 fl (6.2-12.0); Monocyte# 0.23 X10^3/uL; Monocyte% 9.9 % (0-10); NRBC Flagged by Analyzer 0 % (0-5); Neutrophil # 1.72 X10^3/uL (2.7-7.7); Neutrophil % 73.8 % (47-70); POSITIVE COUNT YES; POSITIVE DIFFERENTIAL YES; Platelet Count 94 K/mm3 (150-450); RBC Distribution Width CV 13.2 % (11.6-14.6); Red Blood Count 3.11 M/mm3 (4.2-5.4); White Blood Count 2.3 K/mm3 (4.4-11.0)
[2021-11-25 04:34] LABS: Differential Indicated SCAN CRITERIA MET
[2021-11-25 04:37] LABS: ALB/GLOB Ratio 0.6 RATIO (0.9-2.4); AST(SGOT) 29 U/L (15-37); Alanine Aminotransfer ALT/SGPT 35 U/L (13-56); Albumin, Serum 2.6 g/dL (3.2-5.0); Alkaline Phosphatase 63 U/L (45-117); Anion Gap 12 (5-15); BUN 36 mg/dL (7-18); BUN/Creat Ratio 34.3 RATIO (10-20); Calcium,Total 8.1 mg/dL (8.5-10.1); Chloride 100 mmol/L (98-107); Creatinine, Serum 1.05 mg/dL (0.55-1.02); EST Glomerular Filtration Rate 55 mL/min (>60); Est Glom Filt Rate - Afr Amer 66 mL/min (>60); Estimated Creatinine Clearance 41.82 ml/min; Globulin 4.2 g/dL (2.2-4.2); Glucose 236 mg/dL (74-106); Protein, Total 6.8 g/dL (6.4-8.2); Sodium Level 146 mmol/L (136-145)
[2021-11-25] MEDS: Nystatin Powder 15gm Bottle 1 APPLIC TOPICAL ×3 (05:15→21:28)
[2021-11-25] MEDS: Piperacil/Tazobactam 3.375 GM/50 ML ML IV ×3 (05:16→21:30)
--- NOTE | 2021-11-25 06:45 | PCM.PN.INT ---
Assessment & Plan Assessment/Plan (1) Respiratory failure: PLAN: RECOMMENDATIONS: 1. Continue assist control mode of mechanical ventilation. Wean FiO2/PEEP for saturations greater than 90%. 2. Continue remdesivir and Decadron. 3. Continue empiric antimicrobials. 4. Propofol and fentanyl for sedation. 5. Continue bronchodilators. 6. Continue appropriate GI and DVT prophylaxis. Transition from Pepcid to Protonix today. 7. Monitor H&H daily. IMPRESSIONS: 1. Acute on chronic combined respiratory failure secondary to COVID-19 pneumonia The patient has reported history of COPD of unknown severity which is likely in a state of exacerbation due to underlying COVID-19. The patient was intubated in the emergency department on November 24 after she failed to respond to noninvasive positive pressure ventilatory support. She will be continued on assist control mode of mechanical ventilation. FiO2 and PEEP will be weaned for saturations greater than 90%. She will be continued on remdesivir and Decadron as ordered. Empiric antimicrobials will be continued, pending finalized culture results. Tube feeds can be initiated today from my perspective. 2. Encephalopathy Likely metabolic in nature and related to CO2 retention in the setting of COPD. Anticipate improvement in mentation with invasive mechanical ventilatory support. 3. RAY Likely prerenal in etiology and related to acute presentation. Continue to monitor urine output for now. No current indication for renal replacement therapy. 4. Anemia Continue to monitor H&H daily. Transfuse if hemoglobin drops below 7 g/dL. Transition from Pepcid to Protonix twice daily. TIME: 34 minutes of critical care time, independent of procedures, was spent addressing the patient's acute on chronic combined respiratory failure secondary to COVID-19 pneumonia, encephalopathy, RAY, anemia, review of all data and collaboration with the care team. Subjective Subjective The patient was seen and examined at the bedside this morning. Events from the last 24 hours have been reviewed. The patient currently has a low-grade fever but remains hemodynamically stable. She remains stable from a respiratory perspective on assist control mode of mechanical ventilation with an FiO2 requirement of 35% and PEEP of 5. The patient remains on empiric antimicrobials along with remdesivir, Decadron and prophylactic Lovenox. Hemoglobin has dropped to 9.0 g/dL this morning. Potassium is low at 3.0. Creatinine is mildly elevated at 1.05. Objective Data Objective Data The patient's most recent lab work, culture data and imaging studies have all been personally reviewed. Coronavirus PCR was positive on November 24. Blood and sputum cultures are pending. Vital Signs: Vital Signs Temp Pulse Resp BP Pulse Ox 100.7 F H 91 19 H 125/63 H 96 11/25/21 05:00 11/25/21 05:07 11/25/21 05:07 11/25/21 05:00 11/25/21 05:07 Oxygen Delivery Method Mechanical Ventilator Weight: 92.215 kg Body Mass Index (BMI) 34.6 Intake & Output: Intake and Output for Last 24 Hours 11/23/21 11/24/21 11/25/21 23:59 23:59 23:59 Intake Total 565.00 / 581.00 227.01 / 227.01 Output Total 785 / 785 700 / 700 Balance -220.00 / -204.00 -472.99 / -472.99 Lab / Micro Data Attestation: I reviewed the patient's lab results. Result Diagrams: 11/25/21 04:05 11/25/21 04:05 Labs: Laboratory Results - last 24 hr 11/24/21 05:00: PT 12.6, INR 1.0 11/24/21 07:35: WBC 5.5, RBC 3.86 L, Hgb 11.2 L, Hct 38.4, MCV 99.5 H, MCH 29.0, MCHC 29.2 L, RDW Std Deviation 49.1 H, RDW Coeff of Amanda 13.3, Plt Count 81 L, MPV 11.2, Immature Gran % (Auto) 2.000 H, Neut % (Auto) 80.5 H, Lymph % (Auto) 9.6 L, [place] % (Auto) 7.5, Eos % (Auto) 0.0, Baso % (Auto) 0.4, Absolute Neuts (auto) 4.4, Absolute Lymphs (auto) 0.53 L, Nucleated RBC % 0, Platelet Estimate SLT 11/24/21 07:35: Sodium 142, Potassium 4.3, Chloride 101, Carbon Dioxide 37.0 H, Anion Gap 4 L, BUN 18, Creatinine 0.80, Estim Creat Clear Calc 57.20, Est GFR (MDRD) Af Amer 91, Est GFR (MDRD) Non-Af 75, BUN/Creatinine Ratio 22.6 H, Glucose 280 H, Calcium 9.2, Total Bilirubin 0.80, AST 43 H, ALT 46, Alkaline Phosphatase 89, Troponin I High Sens 21, Total Protein 8.4 H, Albumin 3.3, Globulin 5.1 H, Albumin/Globulin Ratio 0.6 L 11/24/21 07:35: B-Natriuretic Peptide 87.4 11/24/21 07:55: Urine Color Yellow, Urine Clarity Sl. Cloudy, Urine pH 5.0, Ur Specific [place] 1.025, Urine Protein 100 H, Urine Glucose (UA) Normal, Urine Ketones 15 H, Urine Occult Blood 50 H, Urine Nitrite Negative, Urine Bilirubin Negative, Urine Urobilinogen Normal, Ur Leukocyte Esterase Negative, Urine RBC 0-5 SEEN, Urine WBC 0-5 SEEN, Ur Squamous Epith Cells 0-5 SEEN, Urine Bacteria 1+, Urine Mucus RARE 11/24/21 07:55: Urine Opiates Screen NEGATIVE, Urine Methadone Screen NEGATIVE, Ur Barbiturates Screen NEGATIVE, Ur Phencyclidine Scrn NEGATIVE, Ur Amphetamines Screen NEGATIVE, U Methamphetamin-MDMA NEGATIVE, U Benzodiazepines Scrn NEGATIVE, Urine Cocaine Screen NEGATIVE, U Cannabinoids Screen NEGATIVE, Ur Drug Screen Comment 11/24/21 08:00: Lactic Acid 0.8 11/24/21 09:05: COVID-19 (ISA) Detected 11/24/21 13:30: D-Dimer Quant (PE/DVT) 1.56 H* 11/24/21 14:00: Total Creatine Kinase 27, Triglycerides 110 11/24/21 14:05: C-React Prot Ext Range 112.00 H 11/24/21 14:05: Procalcitonin 0.20 H 11/25/21 04:05: WBC 2.3 L, RBC 3.11 L, Hgb 9.0 L, Hct 30.0 L, MCV 96.5, MCH 28.9, MCHC 30.0 L, RDW Std Deviation 47.0 H, RDW Coeff of Amanda 13.2, Plt Count 94 L, MPV 9.6, Immature Gran % (Auto) 1.300 H, Neut % (Auto) 73.8 H, Lymph % (Auto) 14.6 L, [place] % (Auto) 9.9, Eos % (Auto) 0.0, Baso % (Auto) 0.4, Absolute Neuts (auto) 1.7 L, Absolute Lymphs (auto) 0.34 L, Nucleated RBC % 0, Diff Path Review March11/25/21 04:05: Sodium 146 H, Potassium 3.0 L, Chloride 100, Carbon Dioxide 34.0 H, Anion Gap 12, BUN 36 H, Creatinine 1.05 H, Estim Creat Clear Calc 41.82, Est GFR (MDRD) Af Amer 66, Est GFR (MDRD) Non-Af 55 L, BUN/Creatinine Ratio 34.3 H, Glucose 236 H, Calcium 8.1 L, Total Bilirubin 0.80, AST 29, ALT 35, Alkaline Phosphatase 63, Total Protein 6.8, Albumin 2.6 L, Globulin 4.2, Albumin/Globulin Ratio 0.6 L Micro: Microbiology 11/24/21 10:01 Sputum, Expectorated/Coughed Gram Stain - Final ABG Data ABG results: ABG 11/24/21 11/24/21 11/24/21 08:12 09:12 13:02 Specimen Type ART ART WHIT Sample Site R Radial R Radial R Radial pH 7.27 L 7.27 L 7.53 H Bicarbonate Actual 40.9 H 42.5 H 36.8 H Total CO2 44 45 38 Base Excess 14 H 16 H 14 H O2 Saturation 90 L 87 L 81 L O2 % 40 35 80 ABG pCO2 90.3 H* 92.1 H* 44.3 ABG pO2 72 L 64 L 41 L Jovon Test Positive Positive Positive Respiration Rate 12 12 16 O2 Delivery Device BiPAP BiPAP Adult Vent Vent Mode AC Tidal Volume 450 POC PEEP 5 Crit Call To/Read Back Yes Yes Blood Gas Notified Whom cornici Clinical Comments 24 8 24 8 Radiography Diagnostic Testing: Radiology Impression Chest X-Ray 11/24/21 07:31 IMPRESSION: Left lower lobe consolidation. Small left pleural effusion. Patchy right basilar infiltrate. Cardiomegaly. Electronically Signed: Thomas Ahumada MD at 9:36 EST , Service support , Chest X-Ray 11/24/21 09:55 IMPRESSION: The tip of the endotracheal tube is at 3.5 sinus proximal to the judith. The tip of the orogastric tube is below the left hemidiaphragm. Electronically Signed: Thomas Ahumada MD at 10:23 EST , Service support , Physical Exam Const no apparent distress Constitutional Narrative: No ventilator dyssynchrony. General Appearance: intubated and patient mechanically ventilated Nutritional Appearance: obese HEENT normocephalic and head/scalp atraumatic Mouth: endotracheal tube in place and OG tube in place Eyes PERRL and conjunctivae normal Neck supple General: trachea midline Resp Auscultation: diminished lung sounds; Negative for rales, rhonchi or wheezes Cardio regular rate, regular rhythm, S1 normal heart sound and S2 normal heart sound GI normal to inspection, nondistended, normoactive bowel sounds Extremity no clubbing, cyanosis or edema Skin no rashes or lesions noted Neuro Sensorium / Orientation: sedated on vent Charges/Coding Procedures Hospitalists Procedures: 30466 Critial Care 1st Hr
[2021-11-25] MEDS: Propofol 10MG/Ml 1,000 MG/100 ML Bottle 2.8 MG CONT INF (07:05)
[2021-11-25] MEDS: Ipratropium/Albuterol Sulfate 3 ML AMPUL.NEB INHALATION ×3 (07:34→19:06)
--- NOTE | 2021-11-25 07:37 | NURSING ---
0645: pt becoming restless and agitated, this RN at bedside to provide support. Pt cont to be CAM- and answers person and place questions, needing oriented to time of day only. Pt calms w/staff at side briefly then begins to pull at restraints in attempts to reach ETT. Pt was able to pull RH IV out, moderate amt bleeding from site noted, pressure held and drsg applied. New IV start to Rfa as charted. 0700: orders pt to remain intubated and sedation restarted. New propofol bottle and tubing started back at 15mcg. Fentanyl remains at 25mcg.
[2021-11-25] MEDS: CHLORHEXIDINE GLUC 2% CLOTH 1 EACH TOWELETTE TOPICAL (08:16)
[2021-11-25] MEDS: Chlorhexidine 15 ML PO ×2 (08:17→21:27)
[2021-11-25] MEDS: Metoprolol Tartrate 25 MG Tablet GT ×2 (08:18→21:33)
[2021-11-25] MEDS: dexAMETHasone 10 MG/ML Vial 6 MG IV (08:18)
[2021-11-25] MEDS: Enoxaparin 40 MG/0.4 ML Syringe SC (08:18)
[2021-11-25] MEDS: 0.9% Saline Lock 10 ML Syringe IV (08:19)
[2021-11-25] MEDS: Potassium Chloride 10mEq/100mL 10 MEQ/100 ML IV.SOLN. 100 MEQ IV BOLUS ×4 (09:00→16:08)
[2021-11-25] MEDS: Propofol 10MG/Ml 1,000 MG/100 ML Bottle 8.5 MG CONT INF ×2 (11:00→18:00)
[2021-11-25] MEDS: Vital AF 1.2 Cal Liquid 1,000 ML 60 ML GT (11:29)
[2021-11-25 13:25] LABS: Pathologist Review Reviewed
--- NOTE | 2021-11-25 17:09 | PN.HOSP_ITS ---
Subjective Subjective Patient was seen and examined today, she remains lightly sedated and on the ventilator. I talked briefly with critical care about her care. Patient remains on dexamethasone and remdesivir for her COVID-19. Objective Data Objective Data Vital Signs: Vital Signs Temp Pulse Resp BP Pulse Ox 98.5 F 69 16 118/63 97 11/25/21 16:00 11/25/21 17:06 11/25/21 17:06 11/25/21 16:00 11/25/21 17:06 Oxygen Flow Rate (L/min) 35 Oxygen Delivery Method Mechanical Ventilator Weight: 92.215 kg Body Mass Index (BMI) 34.6 Intake & Output: Intake and Output for Last 24 Hours 11/23/21 11/24/21 11/25/21 23:59 23:59 23:59 Intake Total 565.00 / 581.00 1493.54 / 1493.54 Output Total 785 / 785 900 / 900 Balance -220.00 / -204.00 593.54 / 593.54 Lab / Micro Data Result Diagrams: 11/25/21 04:05 11/25/21 04:05 Labs: Laboratory Results - last 24 hr 11/25/21 04:05: WBC 2.3 L, RBC 3.11 L, Hgb 9.0 L, Hct 30.0 L, MCV 96.5, MCH 2 8.9, MCHC 30.0 L, RDW Std Deviation 47.0 H, RDW Coeff of Amanda 13.2, Plt Count 94 L, MPV 9.6, Immature Gran % (Auto) 1.300 H, Neut % (Auto) 73.8 H, Lymph % (Auto) 14.6 L, [place] % (Auto) 9.9, Eos % (Auto) 0.0, Baso % (Auto) 0.4, Absolute Neuts (auto) 1.7 L, Absolute Lymphs (auto) 0.34 L, Nucleated RBC % 0, Diff Path Review Reviewed 11/25/21 04:05: Sodium 146 H, Potassium 3.0 L, Chloride 100, Carbon Dioxide 34.0 H, Anion Gap 12, BUN 36 H, Creatinine 1.05 H, Estim Creat Clear Calc 41.82, Est GFR (MDRD) Af Amer 66, Est GFR (MDRD) Non-Af 55 L, BUN/Creatinine Ratio 34.3 H, Glucose 236 H, Calcium 8.1 L, Total Bilirubin 0.80, AST 29, ALT 35, Alkaline Phosphatase 63, Total Protein 6.8, Albumin 2.6 L, Globulin 4.2, Albumin/Globulin Ratio 0.6 L Micro: Microbiology 11/24/21 10:01 Sputum, Expectorated/Coughed Gram Stain - Final 11/24/21 10:01 Sputum, Expectorated/Coughed Respiratory Culture - Final Neisseria sicca/subflava Physical Exam Const Constitutional Narrative: Patient is lightly sedated and on the vent General Appearance: cooperative, well kempt and well developed Orientation / Consciousness: awake, oriented to person, oriented to place and oriented to time HEENT normocephalic and moist oral mucous membranes Eyes EOMs intact bilaterally and conjunctivae normal Neck nuchal rigidity, no JVD and thyroid normal General: trachea midline Resp normal respiratory effort, no retractions, no use of accessory muscles and clear to auscultation bilaterally Auscultation: Negative for rales, rhonchi or wheezes Cardio regular rate, regular rhythm, S1 normal heart sound, S2 normal heart sound, no murmurs, no rub and no gallops GI normal to inspection, nondistended, normoactive bowel sounds and non-distended Extremity no clubbing, cyanosis or edema Skin no rashes or lesions noted General Skin Exam: no breakdown Neuro Neuro Narrative: Patient is lightly sedated on the ventilator Psych Psych Narrative: Patient is lightly sedated and on the ventilator Assessment & Plan Assessment/Plan (1) Respiratory failure: PLAN: 1. Bilateral pneumonia-felt to be consistent with COVID-19 infection in a patient with underlying chronic lung disease-continue patient on current medications including empiric Zosyn, remdesivir, and dexamethasone. #2 combined acute on chronic respiratory failure-patient is currently on the ventilator and lightly sedated #3 type 2 diabetes-continue to monitor blood sugars and give sliding scale insulin as needed #4 chronic obstructive pulmonary disease-patient is on home O2, I will attempt to get details from the patient's family physician. #5 hypokalemia-patient was given supplemental potassium Charges/Coding Visit Charges Inpatient E&M: 16416 Subs Hosp L2
[2021-11-25] MEDS: Menthol/Lanolin/Calamine/Znox 113 GM Tube 1 APPLIC TOPICAL (21:27)
[2021-11-26] VITALS (35 sets, daily range): BP systolic 104–157; BP diastolic 54–102; PULSE 62–96; RESP 16–24; TEMP 36.6–37.3; O2SAT 88–100
[2021-11-26] MEDS: Propofol 10MG/Ml 1,000 MG/100 ML Bottle 8.5 MG CONT INF
[2021-11-26] MEDS: Insulin Lispro 100 UNIT/ML INSULN.PEN SC ×5 (00:05→21:42)
[2021-11-26] MEDS: TITRATION PARAMETER CHANGE 1 EACH IV (00:30)
[2021-11-26] MEDS: Ipratropium/Albuterol Sulfate 3 ML AMPUL.NEB INHALATION ×3 (01:38→20:15)
--- NOTE | 2021-11-26 03:00 | NURSING ---
Fentanyl drip lowered to meet SAT parameters.
--- NOTE | 2021-11-26 03:30 | NURSING ---
Cont to lower fentanyl drip to meet SAT parameters.
[2021-11-26 03:52] LABS: Hematocrit 29.5 % (37-47); Hemoglobin 9.1 g/dL (12.0-15.0); Mean Corp Hgb Conc 30.8 g/dL (32-36); Mean Corpuscular Hgb 28.6 pg (27.0-32.0); Mean Corpuscular Volume 92.8 fL (81-99); Mean Platelet Vol. 10.5 fl (6.2-12.0); POSITIVE COUNT YES; Platelet Count 87 K/mm3 (150-450); RBC Distribution Width CV 13.5 % (11.6-14.6); RBC Distribution Width SD 46.5 fl (35.1-43.9); Red Blood Count 3.18 M/mm3 (4.2-5.4); White Blood Count 2.6 K/mm3 (4.4-11.0)
[2021-11-26 04:17] LABS: ALB/GLOB Ratio 0.6 RATIO (0.9-2.4); AST(SGOT) 37 U/L (15-37); Alanine Aminotransfer ALT/SGPT 39 U/L (13-56); Albumin, Serum 2.6 g/dL (3.2-5.0); Alkaline Phosphatase 67 U/L (45-117); Anion Gap 8 (5-15); BUN 44 mg/dL (7-18); BUN/Creat Ratio 43.6 RATIO (10-20); Calcium,Total 8.2 mg/dL (8.5-10.1); Chloride 104 mmol/L (98-107); Creatinine, Serum 1.01 mg/dL (0.55-1.02); EST Glomerular Filtration Rate 57 mL/min (>60); Est Glom Filt Rate - Afr Amer 69 mL/min (>60); Estimated Creatinine Clearance 43.48 ml/min; Globulin 4.1 g/dL (2.2-4.2); Glucose 342 mg/dL (74-106); Potassium 3.2 mmol/L (3.5-5.1); Protein, Total 6.7 g/dL (6.4-8.2); Sodium Level 143 mmol/L (136-145)
[2021-11-26] MEDS: Nystatin Powder 15gm Bottle 1 APPLIC TOPICAL ×3 (05:19→21:43)
[2021-11-26] MEDS: Piperacil/Tazobactam 3.375 GM/50 ML ML IV (05:20)
--- NOTE | 2021-11-26 06:37 | PN.CC_ITS ---
Assessment & Plan Assessment/Plan (1) Respiratory failure: PLAN: RECOMMENDATIONS: 1. Proceed with a trial of extubation. 2. Once extubated, wean supplemental oxygen to maintain saturations at or above 90%. 3. De-escalate antibiotics to ceftriaxone. 4. Continue remdesivir and Decadron. 5. Continue prophylactic Lovenox. 6. Continue scheduled bronchodilators. 7. Bedside swallow evaluation and dietary advancement. IMPRESSIONS: 1. Acute on chronic combined respiratory failure secondary to COVID-19 pneumonia The patient has reported history of COPD of unknown severity which is likely in a state of exacerbation due to underlying COVID-19. The patient was intubated in the emergency department on November 24 after she failed to respond to noninvasive positive pressure ventilatory support. The patient was placed on remdesivir, Decadron and empiric antimicrobials. Her respiratory status subsequently improved and she was able to be extubated on November 26. Plan to wean supplemental oxygen to maintain saturations at or above 90%. Encourage incentive spirometer use and mobilize patient as tolerated. 2. Encephalopathy Resolved. Likely metabolic in nature and related to CO2 retention in the set ting of COPD. Anticipate improvement in mentation with invasive mechanical ventilatory support. 3. RAY Improved. Likely prerenal in etiology and related to acute presentation. Continue to monitor urine output for now. No current indication for renal replacement therapy. 4. Anemia Continue to monitor H&H daily. Transfuse if hemoglobin drops below 7 g/dL. Continue PPI therapy. TIME: 32 minutes of critical care time, independent of procedures, was spent addressing the patient's acute on chronic combined respiratory failure secondary to COVID-19 pneumonia, encephalopathy, RAY, anemia, review of all data and collaboration with the care team. Subjective Subjective The patient was seen and examined at the bedside this morning. Events from the last 24 hours have been reviewed. The patient is currently afebrile and hemodynamically stable. She is doing well this morning on a spontaneous breathing trial. FiO2 requirement is 30%. The patient remains on empiric antimicrobials along with remdesivir, Decadron and prophylactic Lovenox. Potassium is low this morning at 3.2. Creatinine is stable. The patient is alert and following commands appropriately. Objective Data Objective Data The patient's most recent lab work, culture data and imaging studies have all been personally reviewed. Coronavirus PCR was positive on November 24. Blood and sputum cultures are pending. Vital Signs: Vital Signs Temp Pulse Resp BP Pulse Ox 99.1 F 87 21 H 157/81 H 98 11/26/21 06:00 11/26/21 06:00 11/26/21 06:00 11/26/21 06:00 11/26/21 06:00 Oxygen Flow Rate (L/min) 35 Oxygen Delivery Method Mechanical Ventilator Weight: 93.213 kg Body Mass Index (BMI) 34.6 Intake & Output: Intake and Output for Last 24 Hours 11/24/21 11/25/21 11/26/21 23:59 23:59 23:59 Intake Total 565.00 / 581.00 2312.16 / 2513.03 514.35 / 514.35 Output Total 785 / 785 1475 / 1575 350 / 350 Balance -220.00 / -204.00 837.16 / 938.03 164.35 / 164.35 Lab / Micro Data Attestation: I reviewed the patient's lab results. Result Diagrams: 11/26/21 03:40 11/26/21 03:40 Labs: Laboratory Results - last 24 hr 11/25/21 04:05: Diff Path Review Reviewed 11/26/21 03:40: WBC 2.6 L, RBC 3.18 L, Hgb 9.1 L, Hct 29.5 L, MCV 92.8, MCH 28.6, MCHC 30.8 L, RDW Std Deviation 46.5 H, RDW Coeff of Amanda 13.5, Plt Count 87 L, MPV 10.5 11/26/21 03:40: Sodium 143, Potassium 3.2 L, Chloride 104, Carbon Dioxide 31.0, Anion Gap 8, BUN 44 H, Creatinine 1.01, Estim Creat Clear Calc 43.48, Est GFR (MDRD) Af Amer 69, Est GFR (MDRD) Non-Af 57 L, BUN/Creatinine Ratio 43.6 H, Glucose 342 H, Calcium 8.2 L, Total Bilirubin 0.70, AST 37, ALT 39, Alkaline Phosphatase 67, Total Protein 6.7, Albumin 2.6 L, Globulin 4.1, Albumin/Globulin Ratio 0.6 L Micro: Microbiology 11/24/21 10:01 Sputum, Expectorated/Coughed Gram Stain - Final 11/24/21 10:01 Sputum, Expectorated/Coughed Respiratory Culture - Final Neisseria sicca/subflava Physical Exam Const no apparent distress Constitutional Narrative: No ventilator dyssynchrony. General Appearance: intubated and patient mechanically ventilated Nutritional Appearance: obese HEENT normocephalic and head/scalp atraumatic Mouth: endotracheal tube in place and OG tube in place Eyes PERRL and conjunctivae normal Neck supple General: trachea midline Resp Auscultation: diminished lung sounds; Negative for rales, rhonchi or wheezes Cardio regular rate, regular rhythm, S1 normal heart sound and S2 normal heart sound GI normal to inspection, nondistended, normoactive bowel sounds Extremity no clubbing, cyanosis or edema Skin no rashes or lesions noted Neuro Neuro Narrative: Alert and following commands appropriately. Psych cooperative Charges/Coding Procedures Hospitalists Procedures: 43233 Critial Care 1st Hr
[2021-11-26] MEDS: Menthol/Lanolin/Calamine/Znox 113 GM Tube 1 APPLIC TOPICAL ×2 (08:31→21:43)
[2021-11-26] MEDS: 0.9% Saline Lock 10 ML Syringe IV (08:31)
[2021-11-26] MEDS: Enoxaparin 40 MG/0.4 ML Syringe SC (08:32)
[2021-11-26] MEDS: CHLORHEXIDINE GLUC 2% CLOTH 1 EACH TOWELETTE TOPICAL (08:32)
[2021-11-26] MEDS: dexAMETHasone 10 MG/ML Vial 6 MG IV (08:32)
[2021-11-26] MEDS: Metoprolol Tartrate 25 MG Tablet PO ×2 (08:34→21:39)
[2021-11-26] MEDS: Ceftriaxone 1 GM/50 ML BAG IV (10:00)
[2021-11-26] MEDS: Potassium Chloride IVPB 40 MEQ 100 MEQ IV BOLUS ×4 (10:58→17:37)
[2021-11-26] MEDS: Gabapentin 300 MG Capsule PO ×2 (14:18→21:39)
--- NOTE | 2021-11-26 17:44 | PCM.PN.HOSP ---
Subjective Subjective Patient was seen and examined today, she was extubated today and is currently on nasal cannula oxygen, she appears stable at this time. I asked the patient why she did not get a COVID-vaccine and she could not give me a reason. Objective Data Objective Data Vital Signs: Vital Signs Temp Pulse Resp BP Pulse Ox 99.0 F 86 20 H 111/57 L 97 11/26/21 16:00 11/26/21 17:00 11/26/21 17:00 11/26/21 17:00 11/26/21 17:00 Oxygen Flow Rate (L/min) 2 Oxygen Delivery Method Nasal Cannula Weight: 93.213 kg Body Mass Index (BMI) 34.6 Intake & Output: Intake and Output for Last 24 Hours 11/24/21 11/25/21 11/26/21 23:59 23:59 23:59 Intake Total 565.00 / 581.00 2312.16 / 2513.03 1330.60 / 1330.60 Output Total 785 / 785 1475 / 1575 1650 / 1650 Balance -220.00 / -204.00 837.16 / 938.03 -319.40 / -319.40 Lab / Micro Data Result Diagrams: 11/26/21 03:40 11/26/21 03:40 Labs: Laboratory Results - last 24 hr 11/26/21 03:40: WBC 2.6 L, RBC 3.18 L, Hgb 9.1 L, Hct 29.5 L, MCV 92.8, MCH 28.6, MCHC 30.8 L, RDW Std Deviation 46.5 H, RDW Coeff of Amanda 13.5, Plt Count 87 L, MPV 10.5 11/26/21 03:40: Sodium 143, Potassium 3.2 L, Chloride 104, Carbon Dioxide 31.0, Anion Gap 8, BUN 44 H, Creatinine 1.01, Estim Creat Clear Calc 43.48, Est GFR (MDRD) Af Amer 69, Est GFR (MDRD) Non-Af 57 L, BUN/Creatinine Ratio 43.6 H, Glucose 342 H, Calcium 8.2 L, Total Bilirubin 0.70, AST 37, ALT 39, Alkaline Phosphatase 67, Total Protein 6.7, Albumin 2.6 L, Globulin 4.1, Albumin/Globulin Ratio 0.6 L Micro: Microbiology 11/24/21 15:45 Blood Culture (Wb) - Right Hand Blood Culture - Preliminary No growth in 48 hours. 11/24/21 05:00 Blood Culture (Wb) - Right Wrist Blood Culture - Preliminary No growth in 48 hours. 11/24/21 10:01 Sputum, Expectorated/Coughed Gram Stain - Final 11/24/21 10:01 Sputum, Expectorated/Coughed Respiratory Culture - Final Neisseria sicca/subflava Physical Exam Const alert, oriented x3 and no apparent distress General Appearance: cooperative, well kempt and well developed Orientation / Consciousness: awake, oriented to person, oriented to place and oriented to time HEENT normocephalic, head/scalp atraumatic and moist oral mucous membranes Head and Scalp: normocephalic Eyes PERRL, EOMs intact bilaterally and conjunctivae normal Neck nuchal rigidity, supple, no JVD, thyroid normal and no carotid bruits General: trachea midline Resp normal respiratory effort, no retractions, no use of accessory muscles and clear to auscultation bilaterally Auscultation: Negative for rales, rhonchi or wheezes Cardio regular rate, regular rhythm, S1 normal heart sound, S2 normal heart sound, no murmurs, no rub and no gallops GI normal to inspection, nondistended, normoactive bowel sounds, soft to palpation, non-tender and non-distended Extremity no clubbing, cyanosis or edema Skin no rashes or lesions noted General Skin Exam: no breakdown Neuro oriented x3, CN's II-XII intact bilaterally, no focal motor deficits and no sensory deficits noted Sensorium / Orientation: awake and alert Speech: speech normal Psych thought process normal and affect normal Assessment & Plan Assessment/Plan (1) Respiratory failure: PLAN: 1. Bilateral pneumonia-felt to be consistent with COVID-19 infection in a patient with underlying chronic lung disease-continue patient on current medications including empiric Zosyn, remdesivir, and dexamethasone. #2 combined acute on chronic respiratory failure-patient is currently on nasal cannula oxygen and appears stable at this time. 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 Kaur had prescribed the oxygen for her. Continue DuoNeb aerosol treatments and albuterol aerosols as needed. #5 hypokalemia-patient was given supplemental potassium, labs will be rechecked tomorrow Charges/Coding Visit Charges Inpatient E&M: 95967 Subs Hosp L2
[2021-11-26] MEDS: Pantoprazole Sodium 20 MG Tablet PO (21:39)
[2021-11-26] MEDS: Atorvastatin Calcium 10 MG Tablet 5 MG PO (21:39)
[2021-11-26] MEDS: Furosemide 20 MG Tablet PO (21:39)
[2021-11-27] VITALS (16 sets, daily range): BP systolic 111–150; BP diastolic 54–81; PULSE 65–98; RESP 18–22; TEMP 36.4–37.5; O2SAT 93–97
[2021-11-27] MEDS: Ipratropium/Albuterol Sulfate 3 ML AMPUL.NEB INHALATION ×2 (02:12→07:30)
[2021-11-27] MEDS: 0.9% Saline Lock 10 ML Syringe IV ×2 (04:05→08:22)
[2021-11-27] MEDS: Gabapentin 300 MG Capsule PO ×3 (04:05→21:25)
[2021-11-27] MEDS: Nystatin Powder 15gm Bottle 1 APPLIC TOPICAL ×3 (04:05→21:25)
[2021-11-27 04:22] LABS: Hematocrit 33.1 % (37-47); Hemoglobin 9.9 g/dL (12.0-15.0); Mean Corp Hgb Conc 29.9 g/dL (32-36); Mean Corpuscular Hgb 28.8 pg (27.0-32.0); Mean Corpuscular Volume 96.2 fL (81-99); Mean Platelet Vol. 10.5 fl (6.2-12.0); Platelet Count 125 K/mm3 (150-450); RBC Distribution Width CV 14.2 % (11.6-14.6); RBC Distribution Width SD 49.9 fl (35.1-43.9); Red Blood Count 3.44 M/mm3 (4.2-5.4); White Blood Count 4.2 K/mm3 (4.4-11.0)
[2021-11-27 05:21] LABS: ALB/GLOB Ratio 0.6 RATIO (0.9-2.4); AST(SGOT) 115 U/L (15-37); Alanine Aminotransfer ALT/SGPT 83 U/L (13-56); Albumin, Serum 2.7 g/dL (3.2-5.0); Alkaline Phosphatase 68 U/L (45-117); Anion Gap 4 (5-15); BUN 29 mg/dL (7-18); Calcium,Total 8.1 mg/dL (8.5-10.1); Chloride 105 mmol/L (98-107); Creatinine, Serum 0.81 mg/dL (0.55-1.02); EST Glomerular Filtration Rate 74 mL/min (>60); Est Glom Filt Rate - Afr Amer 90 mL/min (>60); Estimated Creatinine Clearance 54.21 ml/min; Globulin 4.3 g/dL (2.2-4.2); Glucose 159 mg/dL (74-106); Potassium 3.7 mmol/L (3.5-5.1); Sodium Level 146 mmol/L (136-145)
--- NOTE | 2021-11-27 06:36 | PCM.PN.INT ---
Assessment & Plan Assessment/Plan (1) Respiratory failure: PLAN: RECOMMENDATIONS: 1. Continue to wean supplemental oxygen to maintain saturations at or above 90%. 2. Continue antimicrobials to complete 7-day treatment course. 3. Continue remdesivir and Decadron. 4. Continue prophylactic Lovenox. 5. Continue scheduled bronchodilators. 6. Encourage incentive spirometer use and mobilize patient as tolerated. 7. Perform walking oximetry study prior to consideration for discharge home. 8. Given the patient's lack of further ICU needs, will sign off. Please call with any additional questions. IMPRESSIONS: 1. Acute on chronic combined respiratory failure secondary to COVID-19 pneumonia Improved. The patient has reported history of COPD of unknown severity which is likely in a state of exacerbation due to underlying COVID-19. The patient was intubated in the emergency department on November 24 after she failed to respond to noninvasive positive pressure ventilatory support. The patient was placed on remdesivir, Decadron and empiric antimicrobials. Her respiratory status subsequently improved and she was able to be extubated on November 26. Plan to wean supplemental oxygen to maintain saturations at or above 90%. Encourage incentive spirometer use and mobilize patient as tolerated. 2. Encephalopathy Resolved. Likely metabolic in nature and related to CO2 retention in the setting of COPD. Anticipate improvement in mentation with invasive mechanical ventilatory support. 3. RAY Resolved. Likely prerenal in etiology and related to acute presentation. Continue to monitor urine output for now. No current indication for renal replacement therapy. 4. Anemia Continue to monitor H&H daily. Transfuse if hemoglobin drops below 7 g/dL. Continue PPI therapy. This note was generated with [employer] dictation software. It may contain incorrect words, spelling, and punctuation that were not noted in checking the note before signing. Subjective Subjective The patient was seen and examined at the bedside this morning. Events from the last 24 hours have been reviewed. The patient is afebrile and hemodynamically stable. She is maintaining appropriate oxygen saturations on 2 L/min via nasal cannula. She is currently documented to be overall net -500 mL for the hospitalization. The patient remains on empiric antimicrobials along with remdesivir, Decadron and prophylactic Lovenox. Objective Data Objective Data The patient's most recent lab work, culture data and imaging studies have all been personally reviewed. Coronavirus PCR was positive on November 24. Blood and sputum cultures are pending. Vital Signs: Vital Signs Temp Pulse Resp BP Pulse Ox 97.6 F L 65 22 H 122/62 H 96 11/27/21 05:00 11/27/21 05:00 11/27/21 05:00 11/27/21 05:00 11/27/21 05:00 Oxygen Flow Rate (L/min) 2 Oxygen Delivery Method Nasal Cannula Weight: 90.718 kg Body Mass Index (BMI) 34.6 Intake & Output: Intake and Output for Last 24 Hours 11/25/21 11/26/21 11/27/21 23:59 23:59 23:59 Intake Total 2312.16 / 2513.03 1670.60 / 1670.60 120 / 120 Output Total 1475 / 1575 1999 / 1999 900 / 900 Balance 837.16 / 938.03 -329.40 / -329.40 -780 / -780 Lab / Micro Data Attestation: I reviewed the patient's lab results. Result Diagrams: 11/27/21 04:15 11/27/21 05:00 Labs: Laboratory Results - last 24 hr 11/27/21 04:15: WBC 4.2 L, RBC 3.44 L, Hgb 9.9 L, Hct 33.1 L, MCV 96.2, MCH 28.8, MCHC 29.9 L, RDW Std Deviation 49.9 H, RDW Coeff of Amanda 14.2, Plt Count 125 L, MPV 10.5 11/27/21 04:15: Sodium Cancelled, Potassium Cancelled, Chloride Cancelled, Carbon Dioxide Cancelled, Anion Gap Cancelled, BUN Cancelled, Creatinine Cancelled, Estim Creat Clear Calc Cancelled, Est GFR (MDRD) Af Amer Cancelled, Est GFR (MDRD) Non-Af Cancelled, BUN/Creatinine Ratio Cancelled, Glucose Cancelled, Calcium Cancelled, Total Bilirubin Cancelled, AST Cancelled, ALT Cancelled, Alkaline Phosphatase Cancelled, Total Protein Cancelled, Albumin Cancelled, Globulin Cancelled, Albumin/Globulin Ratio Cancelled 11/27/21 05:00: Sodium 146 H, Potassium 3.7, Chloride 105, Carbon Dioxide 37.0 H, Anion Gap 4 L, BUN 29 H, Creatinine 0.81, Estim Creat Clear Calc 54.21, Est GFR (MDRD) Af Amer 90, Est GFR (MDRD) Non-Af 74, BUN/Creatinine Ratio 36.0 H, Glucose 159 H, Calcium 8.1 L, Total Bilirubin 0.70, AST 115 H, ALT 83 H, Alkaline Phosphatase 68, Total Protein 7.0, Albumin 2.7 L, Globulin 4.3 H, Albumin/Globulin Ratio 0.6 L Micro: Microbiology 11/24/21 15:45 Blood Culture (Wb) - Right Hand Blood Culture - Preliminary No growth in 48 hours. 11/24/21 05:00 Blood Culture (Wb) - Right Wrist Blood Culture - Preliminary No growth in 48 hours. 11/24/21 10:01 Sputum, Expectorated/Coughed Gram Stain - Final 11/24/21 10:01 Sputum, Expectorated/Coughed Respiratory Culture - Final Neisseria sicca/subflava Physical Exam Const alert and no apparent distress General Appearance: cooperative Nutritional Appearance: obese HEENT normocephalic, head/scalp atraumatic and moist oral mucous membranes Eyes PERRL and conjunctivae normal Neck supple General: trachea midline Resp Auscultation: rhonchi and diminished lung sounds; Negative for rales or wheezes Cardio regular rate, regular rhythm, S1 normal heart sound and S2 normal heart sound GI normal to inspection, nondistended, normoactive bowel sounds Extremity no clubbing, cyanosis or edema Skin no rashes or lesions noted Neuro moves all extremities and no focal motor deficits Psych cooperative Charges/Coding Visit Charges Inpatient E&M: 46424 [facility] Hosp L3
--- NOTE | 2021-11-27 07:41 | PN.HOSP_ITS ---
Subjective Subjective Patient was seen and examined today, she is currently on 2 L nasal cannula oxygen and appears stable, she does not complain of any shortness of breath, chest discomfort, fever, or chills Objective Data Objective Data Vital Signs: Vital Signs Temp Pulse Resp BP Pulse Ox 97.6 F L 65 22 H 122/62 H 96 11/27/21 05:00 11/27/21 05:00 11/27/21 05:00 11/27/21 05:00 11/27/21 05:00 Oxygen Flow Rate (L/min) 2 Oxygen Delivery Method Nasal Cannula Weight: 90.718 kg Body Mass Index (BMI) 34.6 Intake & Output: Intake and Output for Last 24 Hours 11/25/21 11/26/21 11/27/21 23:59 23:59 23:59 Intake Total 2312.16 / 2513.03 1670.60 / 1670.60 120 / 120 Output Total 1475 / 1575 1999 / 1999 900 / 900 Balance 837.16 / 938.03 -329.40 / -329.40 -780 / -780 Lab / Micro Data Result Diagrams: 11/27/21 04:15 11/27/21 05:00 Labs: Laboratory Results - last 24 hr 11/27/21 04:15: WBC 4.2 L, RBC 3.44 L, Hgb 9.9 L, Hct 33.1 L, MCV 96.2, MCH 28.8, MCHC 29.9 L, RDW Std Deviation 49.9 H, RDW Coeff of Amanda 14.2, Plt Count 125 L, MPV 10.5 11/27/21 04:15: Sodium Cancelled, Potassium Cancelled, Chloride Cancelled, Carbon Dioxide Cancelled, Anion Gap Cancelled, BUN Cancelled, Creatinine Cancelled, Estim Creat Clear Calc Cancelled, Est GFR (MDRD) Af Amer Cancelled, Est GFR (MDRD) Non-Af Cancelled, BUN/Creatinine Ratio Cancelled, Glucose Cancelled, Calcium Cancelled, Total Bilirubin Cancelled, AST Cancelled, ALT Cancelled, Alkaline Phosphatase Cancelled, Total Protein Cancelled, Albumin Cancelled, Globulin Cancelled, Albumin/Globulin Ratio Cancelled 11/27/21 05:00: Sodium 146 H, Potassium 3.7, Chloride 105, Carbon Dioxide 37.0 H , Anion Gap 4 L, BUN 29 H, Creatinine 0.81, Estim Creat Clear Calc 54.21, Est GFR (MDRD) Af Amer 90, Est GFR (MDRD) Non-Af 74, BUN/Creatinine Ratio 36.0 H, Glucose 159 H, Calcium 8.1 L, Total Bilirubin 0.70, AST 115 H, ALT 83 H, Alkaline Phosphatase 68, Total Protein 7.0, Albumin 2.7 L, Globulin 4.3 H, Albumin/Globulin Ratio 0.6 L Micro: Microbiology 11/24/21 15:45 Blood Culture (Wb) - Right Hand Blood Culture - Preliminary No growth in 48 hours. 11/24/21 05:00 Blood Culture (Wb) - Right Wrist Blood Culture - Preliminary No growth in 48 hours. 11/24/21 10:01 Sputum, Expectorated/Coughed Gram Stain - Final 11/24/21 10:01 Sputum, Expectorated/Coughed Respiratory Culture - Final Neisseria sicca/subflava Physical Exam Const alert, oriented x3, no apparent distress and healthy appearing General Appearance: cooperative, well kempt and well developed Orientation / Consciousness: awake, oriented to person, oriented to place and oriented to time HEENT normocephalic and moist oral mucous membranes Eyes PERRL, EOMs intact bilaterally and conjunctivae normal Neck nuchal rigidity, supple, no JVD and thyroid normal General: trachea midline Resp normal respiratory effort, no retractions, no use of accessory muscles and clear to auscultation bilaterally Auscultation: Negative for rales, rhonchi or wheezes Cardio regular rate, regular rhythm, S1 normal heart sound, S2 normal heart sound, no murmurs, no rub and no gallops GI normal to inspection, nondistended, normoactive bowel sounds, soft to palpation, non-tender and non-distended Extremity no clubbing, cyanosis or edema Skin no rashes or lesions noted General Skin Exam: no breakdown Neuro oriented x3, CN's II-XII intact bilaterally, no focal motor deficits and no sensory deficits noted Sensorium / Orientation: awake and alert Speech: speech normal Psych thought process normal and affect normal Assessment & Plan Assessment/Plan (1) Respiratory failure: PLAN: 1. Bilateral pneumonia-felt to be consistent with COVID-19 infection in a patient with underlying chronic lung disease-continue patient on current medications including empiric Zosyn, remdesivir, and dexamethasone. #2 combined acute on chronic respiratory failure-patient is currently on nasal cannula oxygen and appears stable at this time. 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 Kaur had prescribed the oxygen for her. Continue DuoNeb aerosol treatments and albuterol aerosols as needed. #5 hypokalemia-resolved, labs will be rechecked if necessary Patient appears stable for transfer to [facility] without telemetry. Charges/Coding Visit Charges Inpatient E&M: 19524 Subs Hosp L2
[2021-11-27] MEDS: Insulin Lispro 100 UNIT/ML INSULN.PEN SC ×4 (08:20→21:23)
[2021-11-27] MEDS: Furosemide 20 MG Tablet PO ×2 (08:21→21:24)
[2021-11-27] MEDS: Losartan Potassium 100 MG Tablet PO (08:21)
[2021-11-27] MEDS: dexAMETHasone 10 MG/ML Vial 6 MG IV (08:21)
[2021-11-27] MEDS: Metoprolol Tartrate 25 MG Tablet PO ×2 (08:21→21:24)
[2021-11-27] MEDS: Enoxaparin 40 MG/0.4 ML Syringe SC (08:21)
[2021-11-27] MEDS: Menthol/Lanolin/Calamine/Znox 113 GM Tube 1 APPLIC TOPICAL ×2 (08:22→21:25)
[2021-11-27] MEDS: Pantoprazole Sodium 20 MG Tablet PO ×2 (08:22→21:24)
[2021-11-27] MEDS: Aspirin E.C. 81 MG Tablet PO (08:22)
[2021-11-27] MEDS: Ceftriaxone 1 GM/50 ML BAG IV (10:10)
--- NOTE | 2021-11-27 13:50 | CASEMGMT ---
Addendum entered by Samaria Garcia 11/27/21 16:11: Pt's daughter, Cele, called in to talk w/pt. RN CM spoke w/Cele who stated the # that is listed as her # is incorrect. Cele's correct# is [phone]. This was updated in pt's chart. RN CHELA inquired about pt's . Per Cele, he is not hospitalized and he has not been tested for COVID. Pt had given this RN CM permission earlier today to discuss her care w/her daughter and plan for SNF. Cele made aware at this time that pt is interested in going to a SNF before returning home and that will discuss this further w/pt. Cele voices understanding. Cele's # given to RNEduarda, to provide to pt. Original Note: RN CM FRONT DESK REPRESENTATIVE CHELA spoke w/patient for initial transition planning/care coordination assessment. RN CHELA introduced self and role at [facility]. Pt voices understanding and consents to assessment at this time. Pt is A/O at this time and answers all questions appropriately. Care providers, pharmacy, and demographics verified/updated at this time. PCP: MELCHOR Carlisle Specialists: none [facility] Prescription Benefit: Yes Living Will/HPOA: Pt states she does not currently have LW/HCPOA LNOK: , [employer]. Only one child, daughter/Cele Ramirez. Living Arrangements: Lives in 2-story home w/ w/2 steps to enter. Pt's dtr, dtr's boyfriend, and pt's grandson live upstairs. Per therapy note, pt reported pt's is hospitalized w/COVID. Pt states she has not heard any updates recently re: how he is doing. She states she would like to talk w/her daughter, Cele, but she does not know her number. This RN CM placed call to # on file for Cele and VM left for return call. Will provide phone # to patient, once number is verified it is correct. Pt has Nicole YORK, and has aides 2 days/week. See Zulema BAUTISTA, note. DME: Has the following DME: shower chair, grab bars, hand-held shower, rollator, medical alert button, lift chair, and Home O2 @ 2l/m continuously through [facility]. HHC/SNF: No hx of SNF in the past. Pt states she is weak and feels like she needs to go to nursing facility for therapy before returning home. Coretta BAUTISTA, made aware. PLAN: SNF Marco BRANCHN RN CM
--- NOTE | 2021-11-27 16:52 | CASEMGMT ---
Social Work Note SW updated that pt is agreeable to SNF placement at discharge. SW reviewed chart. Pt is COVID+, only local SNF pt could go to is [facility] in [place]. LILY emailed Karen at [facility] to inquire about bed availability. Karen states they have no beds available today but will have discharges on Tuesday. LILY placed a call to pt to discuss SNF. SW informed pt that the only local SNF that is accepting COVID+ pt is [facility] in [place]. Pt agreeable to [facility] in [place]. SW informed pt that [facility] has no beds available today, but will have beds available Tuesday so this worker will work on referral on Tuesday. Pt states understanding. SW is leaving for the day. SW will fax referral Tuesday to [facility] has no beds available today or over the weekend but will have beds available Tuesday. Plan: SNF Coretta Monroy POST DOC FELLOWSHIP, CREATIVE SERVICES MANAGER
[2021-11-27] MEDS: Atorvastatin Calcium 10 MG Tablet 5 MG PO (21:24)
[2021-11-28] VITALS (13 sets, daily range): BP systolic 133–148; BP diastolic 68–74; PULSE 72–90; RESP 16–24; TEMP 36.4–36.5; O2SAT 95–98
[2021-11-28] MEDS: Nystatin Powder 15gm Bottle 1 APPLIC TOPICAL ×3 (05:11→21:13)
[2021-11-28] MEDS: Gabapentin 300 MG Capsule PO ×3 (05:11→21:13)
[2021-11-28 06:13] LABS: Hematocrit 36.1 % (37-47); Hemoglobin 10.6 g/dL (12.0-15.0); Mean Corp Hgb Conc 29.4 g/dL (32-36); Mean Corpuscular Hgb 28.2 pg (27.0-32.0); Mean Platelet Vol. 9.9 fl (6.2-12.0); Platelet Count 101 K/mm3 (150-450); RBC Distribution Width CV 13.5 % (11.6-14.6); RBC Distribution Width SD 48.3 fl (35.1-43.9); Red Blood Count 3.76 M/mm3 (4.2-5.4); White Blood Count 4.6 K/mm3 (4.4-11.0)
[2021-11-28 06:45] LABS: ALB/GLOB Ratio 0.6 RATIO (0.9-2.4); AST(SGOT) 109 U/L (15-37); Alanine Aminotransfer ALT/SGPT 112 U/L (13-56); Albumin, Serum 2.7 g/dL (3.2-5.0); Alkaline Phosphatase 76 U/L (45-117); Anion Gap 1 (5-15); BUN 29 mg/dL (7-18); BUN/Creat Ratio 42.1 RATIO (10-20); Calcium,Total 8.7 mg/dL (8.5-10.1); Chloride 104 mmol/L (98-107); Creatinine, Serum 0.69 mg/dL (0.55-1.02); EST Glomerular Filtration Rate 89 mL/min (>60); Est Glom Filt Rate - Afr Amer 108 mL/min (>60); Estimated Creatinine Clearance 43.91 ml/min; Globulin 4.3 g/dL (2.2-4.2); Glucose 121 mg/dL (74-106); Potassium 3.6 mmol/L (3.5-5.1); Sodium Level 145 mmol/L (136-145)
[2021-11-28] MEDS: Ipratropium/Albuterol Sulfate 3 ML AMPUL.NEB INHALATION ×2 (07:27→13:52)
[2021-11-28] MEDS: Furosemide 20 MG Tablet PO ×2 (09:21→21:13)
[2021-11-28] MEDS: Pantoprazole Sodium 20 MG Tablet PO ×2 (09:21→21:13)
[2021-11-28] MEDS: Aspirin E.C. 81 MG Tablet PO (09:21)
[2021-11-28] MEDS: Metoprolol Tartrate 25 MG Tablet PO ×2 (09:21→21:13)
[2021-11-28] MEDS: dexAMETHasone 10 MG/ML Vial 6 MG IV (09:22)
[2021-11-28] MEDS: Enoxaparin 40 MG/0.4 ML Syringe SC (09:22)
[2021-11-28] MEDS: Menthol/Lanolin/Calamine/Znox 113 GM Tube 1 APPLIC TOPICAL ×2 (09:23→21:13)
[2021-11-28] MEDS: 0.9% Saline Lock 10 ML Syringe IV (09:25)
[2021-11-28] MEDS: Losartan Potassium 100 MG Tablet PO (10:05)
[2021-11-28] MEDS: Insulin Lispro 100 UNIT/ML INSULN.PEN SC ×3 (10:58→21:11)
[2021-11-28] MEDS: Ceftriaxone 1 GM/50 ML BAG IV (12:48)
--- NOTE | 2021-11-28 14:57 | PN.HOSP_ITS ---
Subjective Subjective Patient was seen and examined today, she does not complain of any shortness of breath, she appears lethargic and sleepy. Patient is currently on 2 L via nasal cannula at rest. Objective Data Objective Data Vital Signs: Vital Signs Temp Pulse Resp BP Pulse Ox 97.5 F L 81 24 H 133/68 H 96 11/28/21 12:13 11/28/21 13:52 11/28/21 13:52 11/28/21 12:13 11/28/21 13:52 Oxygen Flow Rate (L/min) 2 Oxygen Delivery Method Nasal Cannula Weight: 91.217 kg Body Mass Index (BMI) 34.6 Intake & Output: Intake and Output for Last 24 Hours 11/26/21 11/27/21 11/28/21 23:59 23:59 23:59 Intake Total 1670.60 / 1670.60 1560 / 1560 300 / 300 Output Total 1999 / 1999 2550 / 2550 800 / 800 Balance -329.40 / -329.40 -990 / -990 -500 / -500 Lab / Micro Data Result Diagrams: 11/28/21 05:50 11/28/21 05:50 Labs: Laboratory Results - last 24 hr 11/28/21 05:50: WBC 4.6, RBC 3.76 L, Hgb 10.6 L, Hct 36.1 L, MCV 96.0, MCH 28.2, MCHC 29.4 L, RDW Std Deviation 48.3 H, RDW Coeff of Amanda 13.5, Plt Count 101 L, MPV 9.9 11/28/21 05:50: Sodium 145, Potassium 3.6, Chloride 104, Carbon Dioxide 40.0 H, Anion Gap 1 L, BUN 29 H, Creatinine 0.69, Estim Creat Clear Calc 43.91, Est GFR (MDRD) Af Amer 108, Est GFR (MDRD) Non-Af 89, BUN/Creatinine Ratio 42.1 H, Gluco se 121 H, Calcium 8.7, Total Bilirubin 0.70, AST 109 H, ALT 112 H, Alkaline Phosphatase 76, Total Protein 7.0, Albumin 2.7 L, Globulin 4.3 H, Albumin/Globulin Ratio 0.6 L Micro: Microbiology 11/24/21 15:45 Blood Culture (Wb) - Right Hand Blood Culture - Preliminary No growth in 48 hours. 11/24/21 05:00 Blood Culture (Wb) - Right Wrist Blood Culture - Preliminary No growth in 48 hours. 11/24/21 10:01 Sputum, Expectorated/Coughed Gram Stain - Final 11/24/21 10:01 Sputum, Expectorated/Coughed Respiratory Culture - Final Neisseria sicca/subflava Physical Exam Const no apparent distress Constitutional Narrative: Patient appears lethargic and somnolent General Appearance: cooperative, well kempt and well developed Orientation / Consciousness: awake, oriented to person, oriented to place and oriented to time HEENT normocephalic, head/scalp atraumatic and moist oral mucous membranes Head and Scalp: normocephalic Eyes PERRL, EOMs intact bilaterally and conjunctivae normal Neck nuchal rigidity, supple, no JVD and thyroid normal General: trachea midline Resp normal respiratory effort, no retractions, no use of accessory muscles and clear to auscultation bilaterally Auscultation: Negative for rales, rhonchi or wheezes Cardio regular rate, regular rhythm, S1 normal heart sound, S2 normal heart sound, no murmurs, no rub and no gallops GI normal to inspection, nondistended, normoactive bowel sounds, soft to palpation, non-tender and non-distended Extremity no clubbing, cyanosis or edema Skin no rashes or lesions noted, no wounds and skin turgor normal General Skin Exam: no breakdown Neuro oriented x3, CN's II-XII intact bilaterally, no focal motor deficits and no sensory deficits noted Sensorium / Orientation: awake and alert Speech: speech normal Psych thought process normal and affect normal Assessment & Plan Assessment/Plan (1) Respiratory failure: PLAN: 1. Bilateral pneumonia-felt to be consistent with COVID-19 infection in a patient with underlying chronic lung disease-continue patient on current medications including empiric Zosyn, remdesivir, and dexamethasone. Patient will continue empiric antibiotic coverage for now. #2 combined acute on chronic respiratory failure-patient is currently on nasal cannula oxygen and appears stable at this time. #3 type 2 diabetes-continue to monitor blood sugars and give sliding scale insulin as needed #4 chronic obstructive pulmonary disease-patient is on home O2-patient does not have a coal briquette machine operator, she stated her former physician Dr. Kaur had prescribed the oxygen for her. Continue DuoNeb aerosol treatments and albuterol aerosols as needed. #5 hypokalemia-resolved, labs will be rechecked if necessary Charges/Coding Visit Charges Inpatient E&M: 20396 Subs Hosp L2
[2021-11-28] MEDS: Atorvastatin Calcium 10 MG Tablet 5 MG PO (21:13)
[2021-11-29] VITALS (15 sets, daily range): BP systolic 129–155; BP diastolic 65–95; PULSE 66–107; RESP 18–25; TEMP 36.4–36.7; O2SAT 2–100
[2021-11-29] MEDS: Nystatin Powder 15gm Bottle 1 APPLIC TOPICAL ×3 (04:14→21:13)
[2021-11-29] MEDS: Docusate Sodium 100 MG Capsule PO ×2 (04:14→08:23)
[2021-11-29] MEDS: Gabapentin 300 MG Capsule PO ×3 (04:14→21:10)
[2021-11-29] MEDS: Ipratropium/Albuterol Sulfate 3 ML AMPUL.NEB INHALATION ×3 (07:37→19:14)
[2021-11-29] MEDS: Furosemide 20 MG Tablet PO ×2 (08:23→21:10)
[2021-11-29] MEDS: Aspirin E.C. 81 MG Tablet PO (08:23)
[2021-11-29] MEDS: Losartan Potassium 100 MG Tablet PO (08:23)
[2021-11-29] MEDS: Metoprolol Tartrate 25 MG Tablet PO ×2 (08:23→21:10)
[2021-11-29] MEDS: Enoxaparin 40 MG/0.4 ML Syringe SC (08:24)
[2021-11-29] MEDS: Pantoprazole Sodium 20 MG Tablet PO ×2 (08:24→21:10)
[2021-11-29] MEDS: dexAMETHasone 10 MG/ML Vial 6 MG IV (08:25)
[2021-11-29] MEDS: 0.9% Saline Lock 10 ML Syringe IV (08:28)
[2021-11-29] MEDS: Ceftriaxone 1 GM/50 ML BAG IV (08:28)
[2021-11-29] MEDS: Menthol/Lanolin/Calamine/Znox 113 GM Tube 1 APPLIC TOPICAL ×2 (08:33→21:11)
--- NOTE | 2021-11-29 08:50 | PCS.PANDOC ---
PANDEMIC DOCUMENTATION INITIATED: Date: 06/29/2021 Time: 190
[2021-11-29] MEDS: Insulin Lispro 100 UNIT/ML INSULN.PEN SC ×3 (10:47→21:11)
--- NOTE | 2021-11-29 11:03 | PN.HOSP_ITS ---
Subjective Subjective Patient was seen and examined today, her respiratory culture grew out Neisseria which is considered normal jie. Patient has been afebrile for several days- she is on day 7 of antibiotics. I will elect to change her to oral antibiotics for 3 days to total 10 days treatment. Patient still appears fatigued and fra il, she will need temporary placement in a [place] facility for inpatient rehab services. Objective Data Objective Data Vital Signs: Vital Signs Temp Pulse Resp BP Pulse Ox 97.6 F L 85 18 129/65 H 93 11/29/21 08:13 11/29/21 08:23 11/29/21 08:13 11/29/21 08:13 11/29/21 08:34 Oxygen Flow Rate (L/min) [ 4 AMBULATING with Oxygen #2] Oxygen Flow Rate (L/min) [ 2 AMBULATING with Oxygen #1] Oxygen Flow Rate (L/min) [At 95 REST with Oxygen] Oxygen Flow Rate (L/min) 4 Oxygen Delivery Method Nasal Cannula Weight: 88.6 kg Body Mass Index (BMI) 34.6 Intake & Output: Intake and Output for Last 24 Hours 11/27/21 11/28/21 11/29/21 23:59 23:59 23:59 Intake Total 1560 / 1560 850 / 850 50 / 50 Output Total 2550 / 2550 1100 / 1100 1200 / 1200 Balance -990 / -990 -250 / -250 -1150 / -1150 Lab / Micro Data Result Diagrams: 11/28/21 05:50 11/28/21 05:50 Micro: Microbiology 11/24/21 05:00 Blood Culture (Wb) - Right Wrist Blood Culture - Final No growth in 5 days. 11/24/21 15:45 Blood Culture (Wb) - Right Hand Blood Culture - Preliminary No growth in 48 hours. 11/24/21 10:01 Sputum, Expectorated/Coughed Gram Stain - Final 11/24/21 10:01 Sputum, Expectorated/Coughed Respiratory Culture - Final Neisseria sicca/subflava Physical Exam Narrative no apparent distress Constitutional Narrative: Patient appears lethargic and somnolent General Appearance: cooperative, well kempt and well developed Orientation / Consciousness: awake, oriented to person, oriented to place and oriented to time HEENT normocephalic, head/scalp atraumatic and moist oral mucous membranes Head and Scalp: normocephalic Eyes PERRL, EOMs intact bilaterally and conjunctivae normal Neck nuchal rigidity, supple, no JVD and thyroid normal General: trachea midline Resp normal respiratory effort, no retractions, no use of accessory muscles and clear to auscultation bilaterally Auscultation: Negative for rales, rhonchi or wheezes Cardio regular rate, regular rhythm, S1 normal heart sound, S2 normal heart sound, no murmurs, no rub and no gallops GI normal to inspection, nondistended, normoactive bowel sounds, soft to palpation, non-tender and non-distended Extremity no clubbing, cyanosis or edema Skin no rashes or lesions noted, no wounds and skin turgor normal General Skin Exam: no breakdown Neuro oriented x3, CN's II-XII intact bilaterally, no focal motor deficits and no sensory deficits noted Sensorium / Orientation: awake and alert Speech: speech normal Psych thought process normal and affect normal Assessment & Plan Assessment/Plan (1) Respiratory failure: PLAN: 1. Bilateral pneumonia-felt to be consistent with COVID-19 infection in a patient with underlying chronic lung disease-continue patient on current medications including Rocephin empirically, and dexamethasone. Patient will continue empiric antibiotic coverage for the next 3 days with Omnicef starting tomorrow, patient's Rocephin will be discontinued #2 combined acute on chronic respiratory failure-patient is currently on nasal cannula oxygen and appears stable at this time. #3 type 2 diabetes-continue to monitor blood sugars and give sliding scale insulin as needed #4 chronic obstructive pulmonary disease-patient is on home O2-patient does not have a horticultural agent, she stated her former physician Dr. Kaur had prescribed the oxygen for her. Continue DuoNeb aerosol treatments and albuterol aerosols as needed. #5 hypokalemia-resolved, labs will be rechecked if necessary #6 generalized debility-secondary respiratory failure, patient will more than likely need placement in a [place] for [place]-term rehab services Charges/Coding Visit Charges Inpatient E&M: 59343 Subs Hosp L2
[2021-11-29] MEDS: Atorvastatin Calcium 10 MG Tablet 5 MG PO (21:10)
[2021-11-30] VITALS (13 sets, daily range): BP systolic 125–132; BP diastolic 59–76; PULSE 76–107; RESP 16–20; TEMP 36.2–36.8; O2SAT 94–99
[2021-11-30] MEDS: Ipratropium/Albuterol Sulfate 3 ML AMPUL.NEB INHALATION ×3 (01:20→20:41)
[2021-11-30] MEDS: Nystatin Powder 15gm Bottle 1 APPLIC TOPICAL ×3 (03:39→21:28)
[2021-11-30] MEDS: Gabapentin 300 MG Capsule PO ×3 (03:39→21:27)
[2021-11-30] MEDS: Insulin Lispro 100 UNIT/ML INSULN.PEN SC ×4 (06:20→21:38)
[2021-11-30] MEDS: Menthol/Lanolin/Calamine/Znox 113 GM Tube 1 APPLIC TOPICAL ×2 (08:28→21:29)
[2021-11-30] MEDS: Enoxaparin 40 MG/0.4 ML Syringe SC (08:29)
[2021-11-30] MEDS: Cefdinir 300 MG Capsule PO ×2 (08:30→21:28)
[2021-11-30] MEDS: Metoprolol Tartrate 25 MG Tablet PO ×2 (08:30→21:27)
[2021-11-30] MEDS: Docusate Sodium 100 MG Capsule PO ×2 (08:30→21:28)
[2021-11-30] MEDS: Aspirin E.C. 81 MG Tablet PO (08:30)
[2021-11-30] MEDS: Furosemide 20 MG Tablet PO ×2 (08:30→21:28)
[2021-11-30] MEDS: Pantoprazole Sodium 20 MG Tablet PO ×2 (08:30→21:28)
[2021-11-30] MEDS: Losartan Potassium 100 MG Tablet PO (08:30)
[2021-11-30] MEDS: 0.9% Saline Lock 10 ML Syringe IV ×2 (08:31→21:30)
[2021-11-30] MEDS: dexAMETHasone 10 MG/ML Vial 6 MG IV (08:39)
--- NOTE | 2021-11-30 09:52 | CASEMGMT ---
Social Work Note SW faxed referral to Karen at [facility]. SW called Karen at [facility] and left message regarding referral, asked if pre-certs are being waived for pt. SW waiting for call back from [facility]. Plan: [facility] pending acceptance and pre-cert Coretta Monroy DRUM ATTENDANT, VICE PRESIDENT BUSINESS DEVELOPMENT
--- NOTE | 2021-11-30 13:30 | CASEMGMT ---
Social Work Note SW updated that [facility] is not able to accept pt as they are out of network with pt's insurance. SW checked pt's insurance website. LILY searched 100 mile radius from [place] and the following SNF are accepting COVID+ pt's and are in network with pt's insurance. 1. [facility] in [place] 2. [facility] in [place] 3. [facility] in [place] 4. [facility] in [place] 5. [facility] in [place] SW to call SNF to inquire about bed availability and will speak to pt about SNF options. Coretta Monroy EDITOR, PLATFORM STAPLER
--- NOTE | 2021-11-30 15:08 | PCM.PN.HOSP ---
Subjective Subjective Denies any current complaints. Objective Data Objective Data Vital Signs: Vital Signs Temp Pulse Resp BP Pulse Ox 36.2 C L 77 18 125/70 H 98 11/30/21 08:23 11/30/21 08:30 11/30/21 08:23 11/30/21 08:30 11/30/21 10:41 Oxygen Flow Rate (L/min) [ 4 AMBULATING with Oxygen #2] Oxygen Flow Rate (L/min) [ 2 AMBULATING with Oxygen #1] Oxygen Flow Rate (L/min) [At 95 REST with Oxygen] Oxygen Flow Rate (L/min) 2 Oxygen Delivery Method Nasal Cannula Weight: 89.358 kg Body Mass Index (BMI) 34.6 Intake & Output: Intake and Output for Last 24 Hours 11/28/21 11/29/21 11/30/21 23:59 23:59 23:59 Intake Total 850 / 850 400 / 400 Output Total 1100 / 1100 1999 / 1999 1350 / 1350 Balance -250 / -250 -1600 / -1600 -1350 / -1350 Lab / Micro Data Result Diagrams: 11/28/21 05:50 11/28/21 05:50 Micro: Microbiology 11/24/21 15:45 Blood Culture (Wb) - Right Hand Blood Culture - Final No growth in 5 days. 11/24/21 05:00 Blood Culture (Wb) - Right Wrist Blood Culture - Final No growth in 5 days. 11/24/21 10:01 Sputum, Expectorated/Coughed Gram Stain - Final 11/24/21 10:01 Sputum, Expectorated/Coughed Respiratory Culture - Final Neisseria sicca/subflava Physical Exam Const alert and no apparent distress Resp normal respiratory effort, no retractions, no use of accessory muscles and clear to auscultation bilaterally Cardio regular rate, regular rhythm, S1 normal heart sound and S2 normal heart sound GI normal to inspection, nondistended, normoactive bowel sounds, soft to palpation, non-tender and non-distended Extremity normal to inspection Assessment & Plan Assessment/Plan (1) COVID-19: PLAN: 1. COVID 19 pneumonia, acute onset around 11/22, quarantine through the dexamethasone through the . completed remdesivir 2. acute on chronic combined respiratory failure intubated on the , extubated the 12/16 COVID 19 and underlying COPD and bacterial pneumonia currently tolerating 2 l/m 3. Metabolic encephalopathy 2/2 CO2 narcosis resolved 4. RAY resolved admission Cr 1.05, now 0.69 no additional work up 5. Neisseria sicca pneumonia on cefdinir 6. VTE prophylaxis: LMWH 7. Debility: to SNF somewhere that can accept COVID 19 Charges/Coding Visit Charges Inpatient E&M: 54867 Subs Hosp L2
--- NOTE | 2021-11-30 16:35 | CASEMGMT ---
Social Work Note SW in to speak with pt. SW introduced self and role at [facility]. SW informed pt that if she feels she needs SNF, she will need to go to SNF outside of [place] [facility] as the only SNF in [place] taking COVID+ pt's doesn't take pt's insurance. Patient was provided a list of SNF providers including quality and resource use data and consistent with the patient?s preferred geographic region, medical needs, and insurance network. Pt [facility] [place]. SW informed pt that this worker will need to check on bed availability, asked for additional SNF options in the event [facility] cannot accept pt. Pt states she has none, states the other SNF are too far away. Pt states that if [facility] cannot accept her, she will return home. SW asked pt if she feels strong enough to return home and pt states no. SW encouraged pt to call her family pio to discuss SNF options. Pt states understanding. SW then updated that [facility] no longer has a COVID unit. LILY will follow up with pt tomorrow to gather continue discussion of discharge plans. Coretta Monroy ALUMINUM SHINGLE ROOFER, REAL ESTATE OFFICE SUPERVISOR
[2021-11-30] MEDS: Atorvastatin Calcium 10 MG Tablet 5 MG PO (21:27)
[2021-12-01 04:54] VITALS: BP 132/62; PULSE 70; RESP 18; TEMP 36.9; O2SAT 100
[2021-12-01] MEDS: Nystatin Powder 15gm Bottle 1 APPLIC TOPICAL (06:30)
[2021-12-01] MEDS: Gabapentin 300 MG Capsule PO (06:30)
[2021-12-01 08:44] VITALS: O2SAT 98
[2021-12-01 10:21] VITALS: BP 119/64; PULSE 91; RESP 18; TEMP 37.4; O2SAT 99
[2021-12-01] MEDS: Enoxaparin 40 MG/0.4 ML Syringe SC (10:29)
[2021-12-01] MEDS: Cefdinir 300 MG Capsule PO (10:29)
[2021-12-01] MEDS: Pantoprazole Sodium 20 MG Tablet PO (10:29)
[2021-12-01] MEDS: dexAMETHasone 10 MG/ML Vial 6 MG IV (10:30)
[2021-12-01] MEDS: Losartan Potassium 100 MG Tablet PO (10:30)
[2021-12-01] MEDS: Menthol/Lanolin/Calamine/Znox 113 GM Tube 1 APPLIC TOPICAL (10:30)
[2021-12-01] MEDS: 0.9% Saline Lock 10 ML Syringe IV (10:31)
[2021-12-01] MEDS: Aspirin E.C. 81 MG Tablet PO (10:31)
[2021-12-01 10:32] VITALS: BP 119/64; PULSE 91
[2021-12-01] MEDS: Metoprolol Tartrate 25 MG Tablet PO (10:32)
[2021-12-01] MEDS: Furosemide 20 MG Tablet PO (10:32)
[2021-12-01] MEDS: Insulin Lispro 100 UNIT/ML INSULN.PEN SC (11:30)
--- NOTE | 2021-12-01 11:32 | CASEMGMT ---
RN CHELA in to pt room, pt states she does want to go home. She states she has discussed this with her family. Patient was provided a list of [facility] providers including quality and resource use data and consistent with the patient?s preferred geographic region, medical needs, and insurance network. The patient?s preferred provider is 1. [facility] 2. [facility]. Pt states she has portable O2 tanks at home and her family can bring one in when they pick her up for her to go home on. Pt has a BGM at home with sufficient supplies. Pt denies further needs at this time. Pt to call family to bring tank. [phone]- TC to Yasmin at [facility], referral made at this time. Received call back with acceptance.
--- NOTE | 2021-12-01 12:44 | PCM.DC ---
Discharge Instructions Diet Discharge Diet: 1999 Calorie Control Diet Activity Discharge Activity: Return to Normal Activity Additional Activity Instructions:: Oxygen 2 liters continuous. Dressing / Incision Call your doctor if you observe: Fever of 101 or Higher and Shortness of breath Follow Up Care Test Results: Test results from this visit will be discussed in further detail at your follow-up appointment, if applicable. Discharge Plan Admission Admit Date/Time: 11/24/21 10:36 Primary Reason for Your Visit: COVID 19 Attending Provider: Moies Duffy Primary Care Provider: Carol Carlisle NP Consulting Providers: Serge Banks ; Ajit Mcgill ; Viji Richey NP Discharge Orders/Prescriptions Prescriptions: New cefdinir 300 mg Capsule 300 mg PO BID Qty: 6 RF: 0 dexamethasone 6 mg tablet 6 mg PO DAILY Qty: 2 RF: 0 Continued metformin 500 mg tablet 500 mg PO BID RF: 0 metoprolol succinate 50 mg tablet extended release 24 hr 50 PO DAILY RF: 0 dicyclomine 20 mg tablet 20 mg PO BID RF: 0 nystatin 100,000 unit/gram cream 1 applic TOPICAL BID RF: 0 diclofenac potassium 50 mg tablet 50 mg PO DAILY RF: 0 nitroglycerin 0.4 mg tablet, sublingual 0.4 mg sublingual PRN (Reason: Chest Pain) RF: 0 omeprazole 20 mg capsule,delayed release(DR/EC) 20 mg PO DAILY RF: 0 furosemide 20 mg tablet 20 mg PO BID RF: 0 losartan 100 mg tablet 100 mg PO DAILY RF: 0 Myrbetriq 50 mg tablet extended release 24 hr 25 mg PO DAILY RF: 0 simvastatin 10 mg tablet 10 mg PO QHS RF: 0 aspirin 81 mg tablet,delayed release (DR/EC) 81 mg PO DAILY RF: 0 gabapentin 300 mg capsule 300 mg PO TID RF: 0 oxybutynin chloride 5 mg tablet 5 mg PO DAILY RF: 0 Referrals / Follow Up: Care Physician,No Primary [NON-STAFF] - Carol Carlisle NP, MOTOR VEHICLE LICENCE EXAMINER-C [Primary Care Provider] - Within 2 Weeks Disposition Disposition (needs filled in before D/C Order can be placed): Home Health Service
--- NOTE | 2021-12-01 12:59 | PCM.DC.SUM ---
Providers Date of Admission: 11/24/21 Primary Care Physician: ARLENE Edmonds Consultations 11/24/21 11:36 Consult: Composition [facility] / Pulmonary Medicine Routine Consulting Provider: [facility] Reason for Consult: resp failure EMERGENT Consult: No MD Notified: Yes Date Notified: 11/24/21 Time Notified: 10:46 Method of Notification: Verbal Reason For Visit: RESP FAILURE Diagnosis Discharge Diagnosis (1) COVID-19: Status: Acute Code(s): U07.1 - COVID-19 (2) Acute respiratory failure with hypoxia and hypercapnia: Status: Acute Code(s): J96.01 - Acute respiratory failure with hypoxia; J96.02 - Acute respiratory failure with hypercapnia (3) Metabolic encephalopathy: Status: Acute Code(s): G93.41 - Metabolic encephalopathy (4) RAY (acute kidney injury): Status: Acute Code(s): N17.9 - Acute kidney failure, unspecified (5) Pneumonia: Status: Acute Code(s): J18.9 - Pneumonia, unspecified organism Qualifiers: Pneumonia type: due to other aerobic Gram-negative bacteria Laterality: unspecified laterality Lung location: unspecified part of lung Qualified Code(s): J15.6 - Pneumonia due to other Gram-negative bacteria Medications at Discharge Home Medications Myrbetriq 25 mg PO DAILY 11/24/21 aspirin 81 mg PO DAILY 11/24/21 diclofenac potassium 50 mg PO DAILY 11/24/21 dicyclomine 20 mg PO BID 11/24/21 furosemide 20 mg PO BID 11/24/21 gabapentin 300 mg PO TID 11/24/21 losartan 100 mg PO DAILY 11/24/21 metformin 500 mg PO BID 11/24/21 metoprolol succinate 50 PO DAILY 11/24/21 nitroglycerin 0.4 mg SUBLINGUAL PRN 11/24/21 nystatin 1 applic TOPICAL BID 11/24/21 omeprazole 20 mg PO DAILY 11/24/21 oxybutynin chloride 5 mg PO DAILY 11/24/21 simvastatin 10 mg PO QHS 11/24/21 cefdinir 300 mg PO BID #6 cap 12/01/21 dexamethasone 6 mg PO DAILY #2 tab 12/01/21 Hospital Course Summary of Care Provided Minutes Spent on Discharge: 32 Hospital Course: This is a 71-year-old female presents to [facility] after patient was found to be minimally sponsored at home. Patient did require to be intubated. Patient found to have COVID-19. Patient was intubated on the and then extubated on the . Patient had acute hypoxic respiratory for secondary COVID-19 but also her underlying COPD as well as bacterial pneumonia with Neisseria species. Patient was treated with ceftriaxone and changed over to cefdinir. Overall patient has been doing well. Patient has 2 more days on dexamethasone and has completed remdesivir. Initial plans for the patient go to nursing home facility, however that was complicated by the fact the patient has COVID-19 and no nearby facilities were excepting COVID-19 patients. Discussed with the patient today and patient is preferring to go home. She said that she has spoke to her family and they are able to accommodate her. Patient does have oxygen at home with tanks as well as a condenser. Patient is requiring 2 L nasal cannula. Patient be discharged home in stable condition. Physical Exam Const alert Resp normal respiratory effort, no retractions and no use of accessory muscles Cardio regular rate, regular rhythm, S1 normal heart sound and S2 normal heart sound GI normal to inspection, nondistended, normoactive bowel sounds and soft to palpation Extremity normal to inspection Medical Records Data Medical Nutrition Assessment Dietitian: Malnutrition Criteria Met Start: 12/01/21 12:29 Freq: Status: Active Protocol: Document 12/01/21 12:30 RMA (Rec: 12/01/21 12:30 RMA [id number]) Nutrition Malnutrition Evidence of Malnutrition Exists Yes Malnutrition (severe): Acute Illness/Injury Evidenced By Suboptimal Energy Intake ( Severe),Weight Loss (Severe) Intake Problem Inadequate Oral Intake Etiology r/t resp. failure Signs/Symptoms as evidenced by inability to consume sufficient nutrition via PO diet d/t mechanical intubation Status Resolved Problem Clinical Problem Acute Disease or Injury Related Malnutrition Etiology Severe protein-calorie malnutrition in the context of weakness/acute illness/poor appetite/inadequate oral intake Signs/Symptoms as evidenced by ~4-5% x past 5 days and PO meeting less than 50% estimated nutrition needs Status Active Problem Recommendation Dietitian Recommendations/Changes Continue regular diet as tolerated. Will add ensure compact TID w/ meals. Weight / BMI Weight Weight: 88.6 kg Body Mass Index (BMI) 34.6 ABG / Lab / Microbiology Data Result Diagrams: 11/28/21 05:50 11/28/21 05:50 Microbiology: Microbiology 11/24/21 15:45 Blood Culture (Wb) - Right Hand Blood Culture - Final No growth in 5 days. 11/24/21 05:00 Blood Culture (Wb) - Right Wrist Blood Culture - Final No growth in 5 days. 11/24/21 10:01 Sputum, Expectorated/Coughed Gram Stain - Final 11/24/21 10:01 Sputum, Expectorated/Coughed Respiratory Culture - Final Neisseria sicca/subflava D/C Instructions Discharge Diet: 2000 Calorie Control Diet Additional Activity Instructions: Oxygen 2 liters continuous. Call your doctor if you observe: Fever of 101 or Higher and Shortness of breath Meaningful Use Info Meaningful Use Diagnoses (Choose all that apply): None applicable Discharge Plan Admission Admit Date/Time: 11/24/21 10:36 Primary Reason for Your Visit: COVID 19 Attending Provider: Moise Duffy Primary Care Provider: Carol Carlisle NP Consulting Providers: Serge Banks ; Ajit Mcgill ; Viji Richey FIELD SUPERVISOR [employer] Discharge Orders/Prescriptions Prescriptions: New cefdinir 300 mg Capsule 300 mg PO BID Qty: 6 RF: 0 dexamethasone 6 mg tablet 6 mg PO DAILY Qty: 2 RF: 0 Continued metformin 500 mg tablet 500 mg PO BID RF: 0 metoprolol succinate 50 mg tablet extended release 24 hr 50 PO DAILY RF: 0 dicyclomine 20 mg tablet 20 mg PO BID RF: 0 nystatin 100,000 unit/gram cream 1 applic TOPICAL BID RF: 0 diclofenac potassium 50 mg tablet 50 mg PO DAILY RF: 0 nitroglycerin 0.4 mg tablet, sublingual 0.4 mg sublingual PRN (Reason: Chest Pain) RF: 0 omeprazole 20 mg capsule,delayed release(DR/EC) 20 mg PO DAILY RF: 0 furosemide 20 mg tablet 20 mg PO BID RF: 0 losartan 100 mg tablet 100 mg PO DAILY RF: 0 Myrbetriq 50 mg tablet extended release 24 hr 25 mg PO DAILY RF: 0 simvastatin 10 mg tablet 10 mg PO QHS RF: 0 aspirin 81 mg tablet,delayed release (DR/EC) 81 mg PO DAILY RF: 0 gabapentin 300 mg capsule 300 mg PO TID RF: 0 oxybutynin chloride 5 mg tablet 5 mg PO DAILY RF: 0 Referrals / Follow Up: Care Physician,No Primary [NON-STAFF] - Carol Carlisle FIELD SUPERVISOR [employer], FIELD SUPERVISOR [employer]-C [Primary Care Provider] - Within 2 Weeks Disposition Disposition (needs filled in before D/C Order can be placed): Home Health Service Charges/Coding Visit Charges Inpatient E&M: 38856 Disch Hosp
[2021-12-02 07:25] LABS: Bedside Glucose 260 mg/dL (70-110)
[2021-12-02 07:40] LABS: Bedside Glucose 117 mg/dL (70-110)
[2021-12-02 07:40] LABS: Bedside Glucose 229 mg/dL (70-110)
[2021-12-02 07:40] LABS: Bedside Glucose 337 mg/dL (70-110)
[2021-12-02 07:40] LABS: Bedside Glucose 332 mg/dL (70-110)
[2021-12-02 07:40] LABS: Bedside Glucose 369 mg/dL (70-110)
[2021-12-02 07:40] LABS: Bedside Glucose 356 mg/dL (70-110)
[2021-12-02 07:40] LABS: Bedside Glucose 408 mg/dL (70-110)
[2021-12-02 07:40] LABS: Bedside Glucose 286 mg/dL (70-110)
[2021-12-02 07:40] LABS: Bedside Glucose 270 mg/dL (70-110)
[2021-12-02 07:40] LABS: Bedside Glucose 253 mg/dL (70-110)
[2021-12-02 07:40] LABS: Bedside Glucose 268 mg/dL (70-110)
[2021-12-02 07:40] LABS: Bedside Glucose 323 mg/dL (70-110)
[2021-12-02 07:40] LABS: Bedside Glucose 262 mg/dL (70-110)
[2021-12-02 07:40] LABS: Bedside Glucose 255 mg/dL (70-110)
[2021-12-02 07:40] LABS: Bedside Glucose 147 mg/dL (70-110)
[2021-12-02 07:40] LABS: Bedside Glucose 307 mg/dL (70-110)
[2021-12-02 07:45] LABS: Bedside Glucose 254 mg/dL (70-110)
[2021-12-02 07:45] LABS: Bedside Glucose 432 mg/dL (70-110)
[2021-12-02 07:45] LABS: Bedside Glucose 144 mg/dL (70-110)
[2021-12-02 07:45] LABS: Bedside Glucose 339 mg/dL (70-110)
[2021-12-02 07:45] LABS: Bedside Glucose 238 mg/dL (70-110)
[2021-12-02 07:45] LABS: Bedside Glucose 164 mg/dL (70-110)
[2021-12-02 07:45] LABS: Bedside Glucose 434 mg/dL (70-110)
[2021-12-02 07:45] LABS: Bedside Glucose 410 mg/dL (70-110)
--- NOTE | 2021-12-02 08:38 | CASEMGMT ---
Social Work Note SW placed a call to pt's CM Nicole Montiel at [facility] ([phone]) and left message that pt discharged home yesterday with [facility]. LILY faxed discharge paperwork to Nicole Montiel. Coretta Monroy MATERIAL REQUISITIONER, WORSHIP LEADER
== END 2021-12-01 15:03 | disposition home health service (06) | DRG 208 ==
LOC: ED 10:30 → ICU 11:20 → MS3 11-27 13:50 → ICU 11-30 15:50 → MS3 11-30 15:50
PROVIDERS: Internal Medicine Critical Care Medicine; Admitting Provider Internal Medicine; Emergency Provider Emergency Medicine; PCP Nurse Practitioner Family
DX: U07.1 COVID-19 (principal); J96.21 Acute and chronic respiratory failure with hypoxia; J12.82 Pneumonia due to coronavirus disease 2019; G93.41 Metabolic encephalopathy; J15.6 Pneumonia due to other Gram-negative bacteria; J96.22 Acute and chronic respiratory failure with hypercapnia; D61.818 Other pancytopenia; N17.9 Acute kidney failure, unspecified; J44.0 Chronic obstructive pulmonary disease with (acute) lower respiratory infection; E11.40 Type 2 diabetes mellitus with diabetic neuropathy, unspecified; D63.8 Anemia in other chronic diseases classified elsewhere; I10 Essential (primary) hypertension; M19.90 Unspecified osteoarthritis, unspecified site; K21.9 Gastro-esophageal reflux disease without esophagitis; E87.6 Hypokalemia; Z79.82 Long term (current) use of aspirin; Z99.81 Dependence on supplemental oxygen; Z28.3 Underimmunization status
CPT/HCPCS: 31500; 31720; 36415; 36600; 51702; 71045; 80053; 80307; 81001; 82550; 82803; 82962; 83605; 83880; 84145; 84478; 84484; 85025; 85027; 85379; 85610; 86140; 87040; 87070; 87077; 87205; 87635; 93005; 94002; 94003; 94640; 94660; 94762; 97110; 97116; 97162; 97166; 97530; 97535; 97802; 97803; 99251; 99285; G0008; J7030; J7050; 90686; A4216; G0463; J0248; J3010; J3490; U0003; U0005

== ENCOUNTER → 2022-08-26 | Outpatient (REF) | payer MEDICARE, SELFPAY ==
[2022-08-26 10:10] LABS: Absolute Lymphocyte Count 0.68 X10^3/uL (0.83-4.51); Basophil# 0.01 X10^3/uL; Basophil% 0.2 % (0-1); Eosinophil# 0.05 X10^3/uL; Eosinophils% 1.2 % (0-5); Hematocrit 29.1 % (37-47); Hemoglobin 8.5 g/dL (12.0-15.0); Lymphocyte # 0.68 X10^3/ul (0.83-4.51); Mean Corp Hgb Conc 29.2 g/dL (32-36); Mean Corpuscular Hgb 29.5 pg (27.0-32.0); Mean Platelet Vol. 9.3 fl (6.2-12.0); Monocyte# 0.27 X10^3/uL; Monocyte% 6.7 % (0-10); NRBC Flagged by Analyzer 0 % (0-5); Neutrophil # 2.99 X10^3/uL (2.7-7.7); Neutrophil % 74.7 % (47-70); Platelet Count 105 K/mm3 (150-450); RBC Distribution Width CV 13.8 % (11.6-14.6); RBC Distribution Width SD 50.9 fl (35.1-43.9); Red Blood Count 2.88 M/mm3 (4.2-5.4)
== END ==
LOC: OLS.ACH 05:00
PROVIDERS: PCP Nurse Practitioner Family; Visit Provider Family Medicine
DX: D64.9 Anemia, unspecified (principal)
CPT/HCPCS: 36415; 85025

== ENCOUNTER → 2022-09-01 | Outpatient (REF) | payer MEDICARE, SELFPAY ==
[2022-09-01 10:12] LABS: Absolute Lymphocyte Count 0.68 X10^3/uL (0.83-4.51); Absolute Neutrophil Count 2.4 X10^3/uL (2.0-7.7); Basophil# 0.01 X10^3/uL; Basophil% 0.3 % (0-1); Eosinophil# 0.05 X10^3/uL; Eosinophils% 1.5 % (0-5); Hemoglobin 8.6 g/dL (12.0-15.0); Lymphocyte # 0.68 X10^3/ul (0.83-4.51); Lymphocyte % 20.3 % (19-41); Mean Corp Hgb Conc 29.7 g/dL (32-36); Mean Corpuscular Volume 97.6 fL (81-99); Mean Platelet Vol. 9.3 fl (6.2-12.0); Monocyte# 0.19 X10^3/uL; Monocyte% 5.7 % (0-10); NRBC Flagged by Analyzer 0 % (0-5); Neutrophil # 2.41 X10^3/uL (2.7-7.7); Neutrophil % 71.9 % (47-70); POSITIVE COUNT YES; Platelet Count 99 K/mm3 (150-450); RBC Distribution Width CV 13.7 % (11.6-14.6); Red Blood Count 2.97 M/mm3 (4.2-5.4); White Blood Count 3.4 K/mm3 (4.4-11.0)
[2022-09-01 10:18] LABS: Differential Indicated SCAN CRITERIA MET
[2022-09-01 10:33] LABS: ALB/GLOB Ratio 0.9 RATIO (0.9-2.4); AST(SGOT) 21 U/L (15-37); Alanine Aminotransfer ALT/SGPT 19 U/L (13-56); Alkaline Phosphatase 65 U/L (45-117); Anion Gap 1 (5-15); BUN 14 mg/dL (7-18); BUN/Creat Ratio 21.1 RATIO (10-20); Calcium,Total 8.8 mg/dL (8.5-10.1); Chloride 106 mmol/L (98-107); Creatinine, Serum 0.66 mg/dL (0.55-1.02); EST Glomerular Filtration Rate 93 mL/min (>60); Est Glom Filt Rate - Afr Amer 112 mL/min (>60); Globulin 3.4 g/dL (2.2-4.2); Glucose 86 mg/dL (74-106); Potassium 3.9 mmol/L (3.5-5.1); Protein, Total 6.4 g/dL (6.4-8.2); Sodium Level 147 mmol/L (136-145); Thyroid Stim Hormone (TSH) 2.06 uIU/mL (0.358-3.74)
[2022-09-01 11:26] LABS: Platelet Estimate MOD DEC (ADEQ); Red Cell Morphology NORM C+C NORMAL (NORM C&C)
== END ==
LOC: OLS.ACH 04:00
PROVIDERS: PCP Nurse Practitioner Family; Referring Provider Family Medicine; Visit Provider Family Medicine
DX: J96.11 Chronic respiratory failure with hypoxia (principal); E11.40 Type 2 diabetes mellitus with diabetic neuropathy, unspecified
CPT/HCPCS: 36415; 80053; 84443; 85025

== ENCOUNTER → 2022-09-08 | Outpatient (REF) | payer MEDICARE, MEDICAID, SELFPAY ==
[2022-09-09 08:47] LABS: Color, Urine Yellow (Yellow); Glucose, Dipstick Normal (Normal); Ketone-Dipstick Negative (Negative); Leukocyte Esterase-Dipstick 500 /ul (Negative); Nitrite-Dipstick Positive (Negative); Occult Blood-Urine 10 /ul (Negative); Protein-Dipstick Negative (Negative); Urine Bilirubin Dipstick Negative (Negative); Urine Clarity Sl. Cloudy (Clear); Urine Urobilinogen Normal (Normal); Urine pH 6.5 (5.0 - 8.0)
[2022-09-09 09:11] LABS: Bacteria 2+ /hpf (None Seen); Mucous, Urine 1+ /hpf (<or=2+); Red Blood Cells-Urine 0-5 SEEN /hpf (0-5); Squamous Epithelial Cells - UA 0-5 SEEN /hpf (5-10); White Blood Cells 5-10 SEEN /hpf (0-5)
== END ==
LOC: OLS.ACH 08:30
PROVIDERS: PCP Nurse Practitioner Family; Visit Provider Family Medicine
DX: R35.0 Frequency of micturition (principal)
CPT/HCPCS: 81001; 87086; 87088; 87186

== ENCOUNTER → 2022-09-29 | Outpatient (REF) | payer MEDICARE, MEDICAID, SELFPAY ==
[2022-09-29 09:04] LABS: Absolute Lymphocyte Count 0.69 X10^3/uL (0.83-4.51); Absolute Neutrophil Count 2.3 X10^3/uL (2.0-7.7); Basophil# 0.01 X10^3/uL; Basophil% 0.3 % (0-1); Eosinophil# 0.07 X10^3/uL; Eosinophils% 2.1 % (0-5); Hematocrit 30.8 % (37-47); Hemoglobin 8.8 g/dL (12.0-15.0); Lymphocyte # 0.69 X10^3/ul (0.83-4.51); Mean Corp Hgb Conc 28.6 g/dL (32-36); Mean Corpuscular Hgb 27.8 pg (27.0-32.0); Mean Corpuscular Volume 97.2 fL (81-99); Monocyte% 6.1 % (0-10); NRBC Flagged by Analyzer 0.9 % (0-5); Neutrophil % 69.9 % (47-70); POSITIVE COUNT YES; Platelet Count 83 K/mm3 (150-450); RBC Distribution Width SD 49.7 fl (35.1-43.9); Red Blood Count 3.17 M/mm3 (4.2-5.4); White Blood Count 3.3 K/mm3 (4.4-11.0)
== END ==
LOC: OLS.ACH 05:00
PROVIDERS: PCP Nurse Practitioner Family; Visit Provider Family Medicine
DX: D64.9 Anemia, unspecified (principal); I10 Essential (primary) hypertension
CPT/HCPCS: 36415; 85025

== ENCOUNTER → 2022-10-05 | Outpatient (REF) | payer MEDICARE, MEDICAID, SELFPAY ==
[2022-10-05 08:54] LABS: Bacteria 0 SEEN /hpf (None Seen); Mucous, Urine 0 SEEN /hpf (<or=2+); Red Blood Cells-Urine 0 SEEN /hpf (0-5); Squamous Epithelial Cells - UA 0 SEEN /hpf (5-10); White Blood Cells 0 SEEN /hpf (0-5)
[2022-10-05 09:20] LABS: Color, Urine Yellow (Yellow); Glucose, Dipstick Normal (Normal); Ketone-Dipstick Negative (Negative); Leukocyte Esterase-Dipstick Negative /ul (Negative); Nitrite-Dipstick Negative (Negative); Occult Blood-Urine Negative /ul (Negative); Protein-Dipstick Negative (Negative); Urine Bilirubin Dipstick Negative (Negative); Urine Clarity Clear (Clear); Urine Urobilinogen Normal (Normal)
== END ==
LOC: OLS.ACH 06:00
PROVIDERS: PCP Nurse Practitioner Family; Visit Provider Family Medicine
DX: N39.0 Urinary tract infection, site not specified (principal)
CPT/HCPCS: 81001; 87086; 87088

== ENCOUNTER → 2022-11-01 | Outpatient (REF) | payer MEDICARE, MEDICAID, SELFPAY ==
[2022-11-01 08:44] LABS: Hematocrit 31.3 % (37-47); Hemoglobin 8.9 g/dL (12.0-15.0); Mean Corp Hgb Conc 28.4 g/dL (32-36); Mean Corpuscular Hgb 27.3 pg (27.0-32.0); POSITIVE COUNT YES; RBC Distribution Width CV 14.2 % (11.6-14.6); RBC Distribution Width SD 49.5 fl (35.1-43.9); Red Blood Count 3.26 M/mm3 (4.2-5.4); White Blood Count 4.9 K/mm3 (4.4-11.0)
[2022-11-01 08:46] LABS: Platelet Count 94 K/mm3 (150-450); Scan Indicated on CBC? Y/N NO
[2022-11-01 08:57] LABS: Vitamin B12 208 pg/mL (211-911)
[2022-11-01 09:16] LABS: Ferritin 45 ng/mL (8-252); Iron 29 ug/dL (50-170); Iron Binding Capacity,Total 212 ug/dL (250-450); PERCENT IRON SATURATION 13.7 % (15.0-55.0)
== END ==
LOC: OLS.ACH 05:00
PROVIDERS: PCP Nurse Practitioner Family; Visit Provider Family Medicine
DX: D64.9 Anemia, unspecified (principal); I10 Essential (primary) hypertension
CPT/HCPCS: 36415; 82607; 82728; 82746; 83540; 83550; 85027

== ENCOUNTER → 2023-02-07 | Outpatient (REF) | payer MEDICARE, MEDICAID, SELFPAY | LOC: OLS.ACH 15:45 | PROVIDERS: PCP Nurse Practitioner Family; Visit Provider Internal Medicine | DX: Z20.828 Contact with and (suspected) exposure to other viral communicable diseases (principal); B34.9 Viral infection, unspecified ==

== ENCOUNTER 2023-02-17 22:16 | Inpatient (IN) | payer MEDICARE, MEDICAID, SELFPAY ==
[2023-02-17 22:17] VITALS: BP 111/55; PULSE 96; RESP 14; TEMP 35.7; O2SAT 92; BMI 33.8
[2023-02-17 22:24] VITALS: O2SAT 91
[2023-02-17 22:25] VITALS: RESP 16; RESP 17
--- NOTE | 2023-02-17 22:26 | RAD_ITS ---
EXAM: XR CHEST, 1 VIEW CLINICAL INDICATION: ETT placement TECHNIQUE: Frontal view of the chest. This report was created using Pretty Simple report generation technology. COMPARISON: November 20102021. FINDINGS: ET tube identified, tip located 6.9 cm above the judith. Redemonstration of dense bilateral parenchymal disease at the left hemidiaphragm. Stable transjugular catheter with tip off examination. Redemonstration of heterogeneous parenchymal opacity atrophy right lower lung. RAD/Chest 1 View (Portable) IMPRESSION: 1. Dense left pleural parenchymal disease with pleural effusion not excluded. 2. Atelectasis versus infiltrate at the right lung base. 3. Satisfactory position of support devices. Electronically Signed: Calvin Botello MD at 0:01 EDT ,
--- NOTE | 2023-02-17 22:26 | CT_ITS ---
EXAM: CT HEAD WITHOUT INTRAVENOUS CONTRAST CLINICAL INDICATION: altered MS TECHNIQUE: Multiple axial images were obtained of the head without intravenous contrast. CTDIvol = ( 44.99 ) mGy, DLP = ( 846.73 ) mGycm This CT exam was performed using one or more of the following dose reduction techniques: automated exposure control, adjustment of the mA and/or kV according to patient size, and/or use of iterative reconstruction technique. This report was created using Next[employer] report generation technology. COMPARISON: None. FINDINGS: BRAIN AND EXTRA-AXIAL SPACES: Periventricular small vessel ischemic change. No midline shift or hydrocephalus. Diffuse parenchymal atrophy. Posterior fossa structures are unremarkable. Basal cisterns are patent. No acute intracranial hemorrhage, mass effect or edema. No evidence of acute cortical stroke. BONES/JOINTS: Unremarkable. No discrete lytic or blastic abnormalities. VASCULATURE: Atherosclerotic calcifications of the carotid siphons and vertebrobasilar arteries. SINUSES: Unremarkable as visualized. Clear. MASTOID AIR CELLS: Visualized sinuses and mastoid air cells are clear. ORBITS: Visualized globes, extraocular muscles, optic nerves and retrobulbar fat appear unremarkable. CT/Brain/Head without Contrast IMPRESSION: 1. No evidence of acute intracranial pathology. 2. Diffuse involutional changes and chronic ischemic small vessel white matter disease. AIDOC was utilized to assist in identifying pertinent positive findings. Electronically Signed: Calvin Botello MD at 0:04 EDT ,
--- NOTE | 2023-02-17 22:28 | EX.ED.DYSGE1 ---
HPI History of Present Illness Chief Complaint: Unresponsive Informant: EMS Narrative Narrative: Patient brought from local detention found unresponsive by detention staff. Barely breathing, hypoxic in the 70s according to EMS, for them upon evaluation she has been a GCS of 3. They gave Narcan, they do not have a medication list for her, she had no response to Narcan 2 mg IV. They continued to bag her in route. They did an EKG, they did not send a prehospital but they are showing it to me upon evaluation, she has some lateral depressions and the EKG is suggesting a STEMI but it contains artifact. Patient does have signed paperwork saying that she is DNR [facility] but there are no other specifications or desires and there is no family here. Pulse ox 60% upon transfer to our cot from EMS and patient not breathing. Last seen normal about 3 hours prior to evaluation here. Apparently she is in a detention for rehab after a neck fracture. She does not have any collar or cervical spine hardware. EMS also states that family was apparently there yesterday, and the detention staff was suspicious that they may be in the drugs. [facility] Medical History (Updated 02/18/23 @ 00:[address] 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 Chronic respiratory failure with hypoxia COPD (chronic obstructive pulmonary disease) Dysphagia Essential hypertension GERD (gastroesophageal reflux disease) History of falling Insomnia, unspecified Muscle weakness (generalized) Myocardial infarction Obstructive sleep apnea Other displaced fracture of seventh cervical vertebra, subsequent encounter for fracture with routine healing Other displaced fracture of sixth cervical vertebra, subsequent encounter for fracture with routine healing Other lack of coordination Other pancytopenia Personal history of malignant neoplasm of breast Personal history of nicotine dependence Primary osteoarthritis, left shoulder Primary osteoarthritis, right shoulder Pure hypercholesterolemia Respiratory failure with hypoxia Type 2 diabetes mellitus with diabetic neuropathy Unspecified abnormalities of gait and mobility Urinary incontinence Venous insufficiency Venous insufficiency (chronic) (peripheral) Home Medications gabapentin 300 mg capsule 300 mg PO TID Check with primary doctor 11/24/21 [History Last Taken Unknown] losartan 100 mg tablet 100 mg PO DAILY Check with primary doctor 11/24/21 [History Last Taken Unknown] metoprolol succinate 50 mg tablet,extended release 24 hr 50 PO DAILY Check with primary doctor 11/24/21 [History Last Taken Unknown] nystatin 100,000 unit/gram topical cream 1 applic topical BID Check with primary doctor 11/24/21 [History Last Taken Unknown] omeprazole 20 mg capsule,delayed release 20 mg PO DAILY Check with primary doctor 11/24/21 [History Last Taken Unknown] simvastatin 10 mg tablet 10 mg PO QHS Check with primary doctor 11/24/21 [History Last Taken Unknown] bisacodyl 10 mg rectal suppository 10 mg GA DAILY PRN 11/11/22 [History Last Taken Unknown] cranberry 400 mg capsule 400 mg PO DAILY 11/11/22 [History Last Taken Unknown] cyanocobalamin (vitamin B-12) 1,000 mcg capsule 1,000 mcg PO DAILY 11/11/22 [History Last Taken Unknown] docusate sodium 100 mg capsule 100 mg PO DAILY 11/11/22 [History Last Taken Unknown] ferrous sulfate 200 mg (40 mg iron) tablet PO 11/11/22 [History Last Taken Unknown] folic acid 1 mg tablet 1 mg PO DAILY 11/11/22 [History Last Taken Unknown] glimepiride 1 mg tablet (Amaryl) 1 mg PO DAILY 11/11/22 [History Last Taken Unknown] glucagon 1 mg injection kit mg IM 11/11/22 [History Last Taken Unknown] oxycodone 5 mg capsule 5 mg PO Q6H PRN 11/11/22 [History Last Taken Unknown] Allergy/AdvReac Type Severity Reaction Status Date / Time cyclobenzaprine Allergy Other Verified 02/17/23 22:35 [From Flexeril] tizanidine [From Zanaflex] Allergy Other Verified 02/17/23 22:35 Family History Sister Breast cancer Grandmother Diabetes Surgical History History of lumpectomy of left breast Hx of cervical spine surgery Hx of cholecystectomy Social History Smoking Status: Former smoker EXAM Physical Exam Const Vital Signs: 02/17/23 22:17 02/17/23 22:24 02/17/23 22:42 Temperature 96.3 F L Temperature Source Temporal Pulse Rate 96 89 Respiratory Rate 14 20 H Respiratory Pattern Blood Pressure 111/55 L 106/68 Blood Pressure Mean 73 80 Pulse Ox 92 91 94 Oxygen Delivery Method Ambu-Bag Ambu-Bag Mechanical Ventilator Fraction of Inspired Oxygen (FIO2) 02/17/23 23:37 02/17/23 22:25 Temperature Temperature Source Pulse Rate 82 Respiratory Rate 18 17 Respiratory Pattern Normal Blood Pressure 115/69 Blood Pressure Mean 84 Pulse Ox 97 Oxygen Delivery Method Mechanical Ventilator Fraction of Inspired Oxygen (FIO2) 100 Positive well nourished, well developed and obese Constitutional Narrative: Obtunded General Appearance ED: well developed Nutritional Appearance: obese HEENT Reports moist mucous membranes HEENT Narrative: No excessive secretions normocephalic and atraumatic Eyes Eyes Narrative: Pupils 3 mm, sluggish, equal bilaterally Neck supple Chest Wall inspection of chest normal and palpation of chest normal Resp Resp Narrative: Poor respiratory effort, very shallow occasional breaths but for the most part apneic. Trachea midline. Equal breath sounds with bagging bilaterally and otherwise clear. Cardio regular rate, regular rhythm and no murmurs GI non-distended Palpation: soft Back/Spine no CVA tenderness General Back: other FROM Extremity normal to inspection General Extremety ED: Negative for edema, pulses abnormal or tenderness General Extremity: Negative for edema or pulses abnormal Neuro Neuro Narrative: Obtunded, flaccid, GCS 3. No response to painful stimulation anywhere. Skin no rashes or lesions noted and no wounds MDM MDM MDM Narrative Medical decision making narrative: Given that the patient DOES NOT have any paperwork that says DO NOT INTUBATE, and she does not have any documented diagnoses of a terminal illness, we intubated her given her profound hypoxemia and borderline apnea. While prepping for this, EMS personnel continued to bag her which I supervised, and was able to get her up to 91%. She was then intubated without pretreatment see the procedure note, this was uncomplicated and chest x-ray 1 view on my interpretation shows good ETT placement. It also appears to show cardiomegaly, limited evaluation of retrocardiac space, but this is no different compared with her old 1. I had respiratory do an ABG relatively quick after we intubated her, he was not able to get arterial sample but I was okay with the venous, which shows a pH of 7.33 and a PCO2 of 96, consistent with mild acute hypercapnia. We put her on the ventilator and after around 30 minutes she was awake, responding to questions, nodding appropriately, following commands, moving all 4 extremities, indicating that she wanted the tube out but being cooperative and not gagging or trying to pull it out, tolerating well. I had respiratory evaluate her after we got her back from CT, she is not pulling very big tidal volumes on spontaneous mode, around 150 cc. Also her NIF was -22, within normal limits but borderline. Therefore since she is tolerating this right now I think it would be best to leave her intubated and admit her to the ICU overnight, we did consider extubating her to BiPAP here but given these parameters I think it would be springer to wait. At this time the rest of the work-up is unremarkable, my suspicion is that she was hypercapnic and that was causing her comatose state. Discussed with critical care medicine Dr. Mcgill in agreement with this. Hospitalist request CT of the chest, given her chest x-ray that shows significant cardiomegaly, difficult to rule out an acute process in the left lower lobe which I agree with, so that we will be obtained prior to admission. Lab Data Attestation: I reviewed the patient's lab results. Labs: Laboratory Results - last 24 hr 02/17/23 02/17/23 02/17/23 22:28 22:28 22:30 WBC 10.5 RBC 3.69 L Hgb 10.1 L Hct 37.3 MCV 101.1 H MCH 27.4 MCHC 27.1 L RDW Std Deviation 55.7 H RDW Coeff of Amanda 15.0 H Plt Count 163 MPV 8.4 Immature Gran % (Auto) 2.200 H Neut % (Auto) 87.0 H Lymph % (Auto) 6.6 L Wake % (Auto) 3.6 Eos % (Auto) 0.2 Baso % (Auto) 0.4 Absolute Neuts (auto) 9.1 H Absolute Lymphs (auto) 0.69 L Nucleated RBC % 0.2 Sodium 145 Potassium 4.1 Chloride 102 Carbon Dioxide 45.0 H Anion Gap -2 L BUN 23 H Creatinine 0.64 Estim Creat Clear Calc 45.09 Est GFR (MDRD) Af Amer 118 Est GFR (MDRD) Non-Af 98 BUN/Creatinine Ratio 36.2 H Glucose 238 H Calcium 8.9 Total Bilirubin 0.50 AST 21 ALT 26 Alkaline Phosphatase 99 Troponin I High Sens 13 Total Protein 7.6 Albumin 2.9 L Globulin 4.7 H Albumin/Globulin Ratio 0.6 L Urine Color Yellow Urine Clarity Sl. Cloudy Urine pH 5.0 Ur Specific [place] 1.030 Urine Protein 100 H Urine Glucose (UA) Normal Urine Ketones Negative Urine Occult Blood 25 H Urine Nitrite Negative Urine Bilirubin Negative Urine Urobilinogen Normal Ur Leukocyte Esterase Negative Urine RBC 0-5 SEEN Urine WBC 0 SEEN Ur Squamous Epith Cells 0-5 SEEN Urine Bacteria 0 SEEN Hyaline Casts 0-5 SEEN Coarse Granular Casts 0-5 SEEN Urine Mucus 0 SEEN Urine Opiates Screen Urine Methadone Screen Ur Barbiturates Screen Ur Phencyclidine Scrn Ur Amphetamines Screen MDMA (Ecstasy) Screen U Benzodiazepines Scrn Urine Cocaine Screen U Cannabinoids Screen Ur Drug Screen Comment Ethyl Alcohol 02/17/23 02/17/23 22:30 22:32 WBC RBC Hgb Hct MCV MCH MCHC RDW Std Deviation RDW Coeff of Amanda Plt Count MPV Immature Gran % (Auto) Neut % (Auto) Lymph % (Auto) Wake % (Auto) Eos % (Auto) Baso % (Auto) Absolute Neuts (auto) Absolute Lymphs (auto) Nucleated RBC % Sodium Potassium Chloride Carbon Dioxide Anion Gap BUN Creatinine Estim Creat Clear Calc Est GFR (MDRD) Af Amer Est GFR (MDRD) Non-Af BUN/Creatinine Ratio Glucose Calcium Total Bilirubin AST ALT Alkaline Phosphatase Troponin I High Sens Total Protein Albumin Globulin Albumin/Globulin Ratio Urine Color Urine Clarity Urine pH Ur Specific [place] Urine Protein Urine Glucose (UA) Urine Ketones Urine Occult Blood Urine Nitrite Urine Bilirubin Urine Urobilinogen Ur Leukocyte Esterase Urine RBC Urine WBC Ur Squamous Epith Cells Urine Bacteria Hyaline Casts Coarse Granular Casts Urine Mucus Urine Opiates Screen NEGATIVE Urine Methadone Screen NEGATIVE Ur Barbiturates Screen NEGATIVE Ur Phencyclidine Scrn NEGATIVE Ur Amphetamines Screen NEGATIVE MDMA (Ecstasy) Screen NEGATIVE U Benzodiazepines Scrn NEGATIVE Urine Cocaine Screen NEGATIVE U Cannabinoids Screen NEGATIVE Ur Drug Screen Comment Ethyl Alcohol < 3.0 Radiography Diagnostic Testing: Clinical Impression(s) from Imaging Studies Brain CT 02/17/23 22:26 IMPRESSION: 1. No evidence of acute intracranial pathology. 2. Diffuse involutional changes and chronic ischemic small vessel white matter disease. AIDOC was utilized to assist in identifying pertinent positive findings. Electronically Signed: Calvin Botello MD at 0:04 EDT , Chest X-Ray 02/17/23 22:26 IMPRESSION: 1. Dense left pleural parenchymal disease with pleural effusion not excluded. 2. Atelectasis versus infiltrate at the right lung base. 3. Satisfactory position of support devices. Electronically Signed: Calvin Botello MD at 0:01 EDT , Rhythm Strip Rhythm Strip: Sinus Rhythm Rate: 95 Ectopy: None EKG Initial EKG: Attestation: I personally reviewed and interpreted this EKG as follows: Interpretation: Sinus Rhythm, No Acute Injury Pattern and LBBB Prior EKG tracings: available for review Prior: Unchanged Management Discussion w/another healthcare provider: Hospitalist and Catcher Filter Tip (javi mcgill) Procedures Intubations Intubation Method: orotracheal Intubation Verification: Positive color change and Bilateral breath sounds confirmed Intubation Complications: no complications (Patient taking some spontaneous breaths. Intubated without pretreatment of medications, no gag reflex using laryngoscopy with MAC 3 direct blade. Intubated when cords abducted. Visualize the tube passing through the cords. Equal breath sounds bilaterally afterwards, secured 21 cm at the lip) Critical Care Time Critical Care Time: Yes Critical care time (excluding procedures): 30-74 minutes (35 min, not including procedure time), Including time spent:, Discussing w/Consultants, Arranging Admission or Transfer and Performing Direct Patient Care at Bedside Discharge Plan Dx/Rx/DC Orders Clinical Impression: Acute respiratory failure with hypoxia and hypercapnia, COPD (chronic obstructive pulmonary disease) Disposition Disposition: Acute Care Hospital [facility]
[2023-02-17] MEDS: 0.9% Normal Saline 1,000 ML 150 ML IV (22:39)
[2023-02-17 22:40] LABS: Absolute Lymphocyte Count 0.69 X10^3/uL (0.83-4.51); Absolute Neutrophil Count 9.1 X10^3/uL (2.0-7.7); Basophil# 0.04 X10^3/uL; Basophil% 0.4 % (0-1); Eosinophil# 0.02 X10^3/uL; Eosinophils% 0.2 % (0-5); Hematocrit 37.3 % (37-47); Hemoglobin 10.1 g/dL (12.0-15.0); Lymphocyte # 0.69 X10^3/ul (0.83-4.51); Lymphocyte % 6.6 % (19-41); Mean Corp Hgb Conc 27.1 g/dL (32-36); Mean Corpuscular Hgb 27.4 pg (27.0-32.0); Mean Corpuscular Volume 101.1 fL (81-99); Mean Platelet Vol. 8.4 fl (6.2-12.0); Monocyte# 0.38 X10^3/uL; Monocyte% 3.6 % (0-10); NRBC Flagged by Analyzer 0.2 % (0-5); Neutrophil # 9.12 X10^3/uL (2.7-7.7); Platelet Count 163 K/mm3 (150-450); RBC Distribution Width SD 55.7 fl (35.1-43.9); Red Blood Count 3.69 M/mm3 (4.2-5.4); White Blood Count 10.5 K/mm3 (4.4-11.0)
[2023-02-17 22:41] LABS: Bacteria 0 SEEN /hpf (None Seen); Mucous, Urine 0 SEEN /hpf (<or=2+); White Blood Cells 0 SEEN /hpf (0-5)
[2023-02-17 22:42] VITALS: BP 106/68; PULSE 89; RESP 20; O2SAT 94
--- NOTE | 2023-02-17 22:43 | ED.RN ---
PATIENTS FRIEND DAVID CALLED AND UPDATED ABOUT PATIENT. DAVID REQUESTED HER DAUGHTER BE CALLED AND UPDATED. JOCY [phone] CALLED WITH UPDATE
--- NOTE | 2023-02-17 22:50 | CPS ---
Critical ABG values, Dr. Tsai aware. Not enough blood for re-run.
[2023-02-17 22:55] LABS: Color, Urine Yellow (Yellow); Glucose, Dipstick Normal (Normal); Ketone-Dipstick Negative (Negative); Leukocyte Esterase-Dipstick Negative /ul (Negative); Nitrite-Dipstick Negative (Negative); Occult Blood-Urine 25 /ul (Negative); Protein-Dipstick 100 mg/dl (Negative); Urine Bilirubin Dipstick Negative (Negative); Urine Clarity Sl. Cloudy (Clear); Urine Urobilinogen Normal (Normal)
[2023-02-17 23:03] LABS: Alcohol, Blood (Medical)-Serum < 3.0 mg/dL
[2023-02-17 23:08] LABS: ALB/GLOB Ratio 0.6 RATIO (0.9-2.4); AST(SGOT) 21 U/L (15-37); Alanine Aminotransfer ALT/SGPT 26 U/L (13-56); Albumin, Serum 2.9 g/dL (3.2-5.0); Alkaline Phosphatase 99 U/L (45-117); Anion Gap -2 (5-15); BUN 23 mg/dL (7-18); BUN/Creat Ratio 36.2 RATIO (10-20); Calcium,Total 8.9 mg/dL (8.5-10.1); Chloride 102 mmol/L (98-107); Creatinine, Serum 0.64 mg/dL (0.55-1.02); EST Glomerular Filtration Rate 98 mL/min (>60); Est Glom Filt Rate - Afr Amer 118 mL/min (>60); Estimated Creatinine Clearance 45.09 ml/min; Globulin 4.7 g/dL (2.2-4.2); Glucose 238 mg/dL (74-106); Potassium 4.1 mmol/L (3.5-5.1); Protein, Total 7.6 g/dL (6.4-8.2); Sodium Level 145 mmol/L (136-145); Troponin-I HS 13 pg/mL (3.0-54.0)
[2023-02-17 23:16] LABS: Coarse Granular Cast 0-5 SEEN /lpf (0-5 /lpf); Hyaline Cast 0-5 SEEN /lpf (0-5); Red Blood Cells-Urine 0-5 SEEN /hpf (0-5); Squamous Epithelial Cells - UA 0-5 SEEN /hpf (5-10)
[2023-02-17 23:17] LABS: Amphetamine Urine VISTA NEGATIVE (<1000 ng/mL); Barbiturate Urine VISTA NEGATIVE (< 200 ng/mL); Benzodiazepine Urine VISTA NEGATIVE (< 200 ng/mL); Cocaine Urine VISTA NEGATIVE (< 300 ng/mL); Ecstacy Urine VISTA NEGATIVE (< 500 ng/mL); Methadone Urine VISTA NEGATIVE (< 300 ng/mL); PCP Urine VISTA NEGATIVE (< 25 ng/mL); THC Urine VISTA NEGATIVE (< 50 ng/mL); Vista UDS pH Range 4
[2023-02-17 23:37] VITALS: BP 115/69; PULSE 82; RESP 18; O2SAT 97
[2023-02-18] VITALS (42 sets, daily range): BP systolic 91–124; BP diastolic 44–94; PULSE 68–110; RESP 10–23; TEMP 35.6–38.5; O2SAT 20–100; BMI 33.3
--- NOTE | 2023-02-18 00:14 | CT_ITS ---
INDICATION: COPD EXAMINATION: CT CHEST WITHOUT CONTRAST - CT Chest W/O Contrast Injection TECHNIQUE: Helically acquired images were obtained of the chest with sagittal and coronal reconstructed images. Individualized dose optimization techniques were used for this CT. COMPARISON: 02/17/2023 chest x-ray. 03/20/2014 CT.. FINDINGS: LUNGS, PLEURA AND LARGE AIRWAYS: Endotracheal tube terminates proximal to the judith. Bilateral lower lobe consolidation. Lingular atelectasis versus infiltrate. 4 mm right upper lobe pulmonary nodule. Small bilateral pleural effusions. No pneumothorax. THYROID: Unremarkable. HEART AND PERICARDIUM: Cardiomegaly. No evidence of coronary artery calcification. No pericardial effusion. MEDIASTINUM AND EDWINA: No mediastinal or hilar adenopathy. Esophagus is unremarkable. No hiatal hernia. VESSELS: No thoracic aortic aneurysm. UPPER ABDOMEN: 2.5 cm and 1.6 cm left adrenal gland nodules with indeterminate attenuation values. Hepatosplenomegaly. BONES: No focal osseous abnormality. 1.3 cm asymmetric density in the anterior retroareolar left breast. CT/Chest without Contrast IMPRESSION: 1. Bilateral lower lobe consolidation consistent with pneumonia. 2. Small bilateral pleural effusions. 3. Lingular atelectasis versus infiltrate. 4. 4 mm right upper lobe pulmonary nodule. Per Fleischner criteria, if the patient has increased risk factors for lung cancer, recommend follow-up CT of the chest in 12 months. Otherwise no follow-up is recommended. 5. 2.5 cm and 1.6 cm left adrenal gland nodules with indeterminate attenuation values. Per ACR White Paper, recommend follow-up with nonemergent adrenal CT. 6. Cardiomegaly. 7. 1.3 cm asymmetric density in the anterior left breast. Consider follow-up with diagnostic mammography. Electronically Signed: Basim Leija DO at 2:02 EDT ,
--- NOTE | 2023-02-18 00:29 | PCM.HP.STD ---
HPI - General General Date of Admission: 02/18/23 Date of Service: 02/18/23 Chief Complaint: Unresponsiveness HPI Narrative POLI CROOKS, is a 72 F who presented to the emergency department at [facility] secondary to unresponsiveness. The patient was found to be unresponsive by the [facility]. Upon presentation she was barely breathing and found to be hypoxic in the 70s. GCS was 3. They gave Narcan without any response and bagged her in route to the emergency department. There was paperwork signed that stated that she was a DNR but intubation status was not clarified and no family was present so she was intubated. Oxygen saturation upon presentation to the emergency department was 60%. She was last seen normal about 3 hours prior to evaluation. She had an extensive stay here from November 24, 2021 through December 01, 2021 with a similar presentation at that time. At that time she had COVID-pneumonia. At the time of my evaluation she was intubated and was not able to participate in any history. Vital signs on presentation demonstrated temperature of 96.3, heart rate 96, blood pressure 111/55, respiratory rate was 14, oxygen saturation was 60% on transfer from the cot and improved to 92% with 100% Ambu bag. She was emergently intubated and at saturations have been anywhere from 94 to 100% since she was intubated. No sedation was required for intubation. Her CBC shows a normal white count however she does have a left shift with an 87% neutrophilia and chronic stable anemia. Platelet count is normal. A postintubation ABG was obtained and she had a pH of 7.34 with a PCO2 of 96.6 and a PO2 of 64 on 100% mechanical ventilation. Her chemistry panel showed normal electrolytes but she has a serum bicarb of 45.0 this appears to be close to her baseline indicating she likely has chronic hypercapnia. Serum glucose was 238. Liver functions were normal. BNP was slightly elevated at 132.9 and her urine was unremarkable for any signs of infection. CT of the brain demonstrated no evidence of acute intracranial pathology however did show diffuse involutional changes and chronic ischemic small vessel changes. Chest x-ray showed dense left pleural parenchymal disease with possible pleural fluid fusion, atelectasis versus infiltrate in the right lung base and satisfactory position of the ET tube. Toxicology screen was unremarkable. EKG showed normal sinus rhythm with normal WA interval however she has slightly prolonged QTc. No signs of ischemic changes were noted. 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 Chronic respiratory failure with hypoxia COPD (chronic obstructive pulmonary disease) Dysphagia Essential hypertension GERD (gastroesophageal reflux disease) History of falling Insomnia, unspecified Iron deficiency anemia Muscle weakness (generalized) Myocardial infarction Obstructive sleep apnea Other displaced fracture of seventh cervical vertebra, subsequent encounter for fracture with routine healing Other displaced fracture of sixth cervical vertebra, subsequent encounter for fracture with routine healing Other lack of coordination Other pancytopenia Personal history of malignant neoplasm of breast Personal history of nicotine dependence Primary osteoarthritis, left shoulder Primary osteoarthritis, right shoulder Pure hypercholesterolemia Respiratory failure with hypoxia Thrombocytopenia Type 2 diabetes mellitus with diabetic neuropathy Unspecified abnormalities of gait and mobility Urinary incontinence Venous insufficiency Venous insufficiency (chronic) (peripheral) Vitamin B12 deficiency Home Medications gabapentin 300 mg capsule 300 mg PO TID Check with primary doctor 11/24/21 [History Last Taken Unknown] losartan 100 mg tablet 100 mg PO DAILY Check with primary doctor 11/24/21 [History Last Taken Unknown] metoprolol succinate 50 mg tablet,extended release 24 hr 50 PO DAILY Check with primary doctor 11/24/21 [History Last Taken Unknown] nystatin 100,000 unit/gram topical cream 1 applic topical BID Check with primary doctor 11/24/21 [History Last Taken Unknown] omeprazole 20 mg capsule,delayed release 20 mg PO DAILY Check with primary doctor 11/24/21 [History Last Taken Unknown] simvastatin 10 mg tablet 10 mg PO QHS Check with primary doctor 11/24/21 [History Last Taken Unknown] bisacodyl 10 mg rectal suppository 10 mg WA DAILY PRN 11/11/22 [History Last Taken Unknown] cranberry 400 mg capsule 400 mg PO DAILY 11/11/22 [History Last Taken Unknown] cyanocobalamin (vitamin B-12) 1,000 mcg capsule 1,000 mcg PO DAILY 11/11/22 [History Last Taken Unknown] docusate sodium 100 mg capsule 100 mg PO DAILY 11/11/22 [History Last Taken Unknown] ferrous sulfate 200 mg (40 mg iron) tablet PO 11/11/22 [History Last Taken Unknown] folic acid 1 mg tablet 1 mg PO DAILY 11/11/22 [History Last Taken Unknown] glimepiride 1 mg tablet (Amaryl) 1 mg PO DAILY 11/11/22 [History Last Taken Unknown] glucagon 1 mg injection kit mg IM 11/11/22 [History Last Taken Unknown] oxycodone 5 mg capsule 5 mg PO Q6H PRN 11/11/22 [History Last Taken Unknown] Allergy/AdvReac Type Severity Reaction Status Date / Time cyclobenzaprine Allergy Other Verified 02/17/23 22:35 [From Flexeril] tizanidine [From Zanaflex] Allergy Other Verified 02/17/23 22:35 Family History Sister Breast cancer Grandmother Diabetes Surgical History History of lumpectomy of left breast Hx of cervical spine surgery Hx of cholecystectomy Social History (Updated 02/18/23 @ 00:[address] Rebecca Resendiz DO) housing: [facility] Smoking Status: Former smoker alcohol intake: never substance use type: does not use ROS Review of Systems ROS Unobtainable: due to endotracheal tube and due to mental status Vital Signs Vital Signs Vital Signs: 02/17/23 22:17 02/17/23 22:24 02/17/23 22:42 Temperature 96.3 F L Temperature Source Temporal Pulse Rate 96 89 Respiratory Rate 14 20 H Respiratory Pattern Blood Pressure 111/55 L 106/68 Blood Pressure Mean 73 80 Pulse Ox 92 91 94 Oxygen Delivery Method Ambu-Bag Ambu-Bag Mechanical Ventilator Fraction of Inspired Oxygen (FIO2) 02/17/23 23:37 02/17/23 22:25 Temperature Temperature Source Pulse Rate 82 Respiratory Rate 18 17 Respiratory Pattern Normal Blood Pressure 115/69 Blood Pressure Mean 84 Pulse Ox 97 Oxygen Delivery Method Mechanical Ventilator Fraction of Inspired Oxygen (FIO2) 100 Weight Weight: 92.3 kg Body Mass Index (BMI) 33.8 Physical Exam Const no apparent distress and well nourished Constitutional Narrative: Intubated, elderly, white female, lying in bed, no sedation, opens eyes to name and intermittently follows commands, appears comfortable and nontoxic at this time HEENT normocephalic, head/scalp atraumatic and moist oral mucous membranes HEENT Narrative: ET tube in place Eyes PERRL, EOMs intact bilaterally and conjunctivae normal Eyes Narrative: No scleral icterus Neck no lymphadenopathy, supple, no JVD and no carotid bruits Neck Narrative: Trachea midline Resp normal respiratory effort, no retractions, no use of accessory muscles and clear to auscultation bilaterally Resp Narrative: Mechanically ventilated Auscultation: Negative for rales, rhonchi or wheezes Cardio regular rate, regular rhythm, S1 normal heart sound, S2 normal heart sound, no murmurs, no rub, no gallops and no clicks GI normal to inspection, nondistended, normoactive bowel sounds, soft to palpation and non-tender Extremity Extremity Narrative: No cyanosis or clubbing, distal bilateral lower extremity pitting edema 1+ Skin no rashes or lesions noted, no wounds, skin turgor normal, no jaundice, no petechiae and no mottling Neuro Neuro Narrative: Intubated and sedated however patient is moving all extremities spontaneously and opens eyes to name Psych Psych Narrative: Unable to assess Results Lab / Micro Data Result Diagrams: 02/17/23 22:28 02/17/23 22:28 Labs: Laboratory Results - last 24 hr 02/17/23 22:28: WBC 10.5, RBC 3.69 L, Hgb 10.1 L, Hct 37.3, MCV 101.1 H, MCH 27.4, MCHC 27.1 L, RDW Std Deviation 55.7 H, RDW Coeff of Amanda 15.0 H, Plt Count 163, MPV 8.4, Immature Gran % (Auto) 2.200 H, Neut % (Auto) 87.0 H, Lymph % (Auto) 6.6 L, [place] % (Auto) 3.6, Eos % (Auto) 0.2, Baso % (Auto) 0.4, Absolute Neuts (auto) 9.1 H, Absolute Lymphs (auto) 0.69 L, Nucleated RBC % 0.2 02/17/23 22:28: Sodium 145, Potassium 4.1, Chloride 102, Carbon Dioxide 45.0 H, Anion Gap -2 L, BUN 23 H, Creatinine 0.64, Estim Creat Clear Calc 45.09, Est GFR (MDRD) Af Amer 118, Est GFR (MDRD) Non-Af 98, BUN/Creatinine Ratio 36.2 H, Glucose 238 H, Calcium 8.9, Total Bilirubin 0.50, AST 21, ALT 26, Alkaline Phosphatase 99, Troponin I High Sens 13, Total Protein 7.6, Albumin 2.9 L, Globulin 4.7 H, Albumin/Globulin Ratio 0.6 L 02/17/23 22:30: Urine Color Yellow, Urine Clarity Sl. Cloudy, Urine pH 5.0, Ur Specific [place] 1.030, Urine Protein 100 H, Urine Glucose (UA) Normal, Urine Ketones Negative, Urine Occult Blood 25 H, Urine Nitrite Negative, Urine Bilirubin Negative, Urine Urobilinogen Normal, Ur Leukocyte Esterase Negative, Urine RBC 0-5 SEEN, Urine WBC 0 SEEN, Ur Squamous Epith Cells 0-5 SEEN, Urine Bacteria 0 SEEN, Hyaline Casts 0-5 SEEN, Coarse Granular Casts 0-5 SEEN, Urine Mucus 0 SEEN 02/17/23 22:30: Urine Opiates Screen NEGATIVE, Urine Methadone Screen NEGATIVE, Ur Barbiturates Screen NEGATIVE, Ur Phencyclidine Scrn NEGATIVE, Ur Amphetamines Screen NEGATIVE, MDMA (Ecstasy) Screen NEGATIVE, U Benzodiazepines Scrn NEGATIVE, Urine Cocaine Screen NEGATIVE, U Cannabinoids Screen NEGATIVE, Ur Drug Screen Comment 02/17/23 22:32: Ethyl Alcohol < 3.0 Micro: Microbiology 02/17/23 22:35 Nasal Secretion SARS-CoV-2 & FLU Antigen (Rapid) - Final Rhythm Strip Rhythm Strip: Sinus Rhythm Rate: 95 Ectopy: None Radiology Impression Brain CT 02/17/23 22:26 IMPRESSION: 1. No evidence of acute intracranial pathology. 2. Diffuse involutional changes and chronic ischemic small vessel white matter disease. AIDOC was utilized to assist in identifying pertinent positive findings. Electronically Signed: Calvin Botello MD at 0:04 EDT , Chest X-Ray 02/17/23 22:26 IMPRESSION: 1. Dense left pleural parenchymal disease with pleural effusion not excluded. 2. Atelectasis versus infiltrate at the right lung base. 3. Satisfactory position of support devices. Electronically Signed: Calvin Botello MD at 0:01 EDT , Assessment & Plan Assessment/Plan (1) Metabolic encephalopathy: (2) Acute on chronic respiratory failure with hypoxia and hypercapnia: (3) Hyperglycemia: (4) Lower extremity edema: PLAN: Plan Acute on chronic hypoxic and hypercapnic respiratory failure -Etiology is unclear at this time however suspect baseline CO2 retention with possible pneumonia -CT of the chest is pending -We will start vancomycin and Zosyn -Obtain sputum culture -Lasix 40 mg IV push x1 dose with mildly elevated BNP and lower extremity edema -COVID and flu are negative -Check respiratory viral panel -Check strep pneumo Legionella antigens -Blood cultures are pending -Check procalcitonin -Continue mechanical ventilation -Suspect baseline PCO2 is in the 80s -Consult pulmonary medicine -Patient should be extubated to BiPAP and be evaluated for ongoing BiPAP use prior to discharge -Consult pulmonary medicine/critical care Bilateral lower extremity edema -Check bilateral lower extremity Dopplers especially with recent immobility -Lasix 40 mg x 1 dose Toxic/metabolic encephalopathy -Likely related to CO2 narcosis -Mental status is already improving since intubation -Continue to monitor -Avoid sedating medications DM-2 with hyperglycemia -Hold home glimepiride -SSI -Accu-Cheks every 6 Chronic anemia -Patient follows as an outpatient with hematology -Has had bone marrow biopsy that was overall unremarkable -Continue home iron Diabetic neuropathy -On gabapentin at baseline -Hold for now with mental status HTN -We will hold antihypertensives for now -Ongoing evaluation for reinitiation GERD -Hold home omeprazole -IV Protonix Hyperlipidemia -Continue home statin Thrombocytopenia -Appears to be chronic and ongoing since 2013 -Follows with hematology -Currently normal Cervical spine fracture of sixth and seventh cervical vertebrae -Appears to be stable -This is the reason she was in a nursing facility at this time -PT/OT consultation -Data available for more details and patient unable to provide Obesity -BMI 33.9 -Recommend weight loss -Complicates treatment, provokes his, outcomes LUISA -Unclear if patient uses BiPAP/CPAP -We will need to evaluate when she is extubated or family is available to discuss DVT prophylaxis -Lovenox daily 40 mg CODE STATUS -Paperwork for DNR CCA however patient was intubated in the emergency department due to intubation status being unclear therefore CODE STATUS is currently unclear and no family members are available for discussion -We will leave full code unverified however will need further discussion to verify absolute CODE STATUS in the morning Charges/Coding Visit Charges Inpatient E&M: 47496 Init Hosp L3
[2023-02-18 01:00] LABS: BNP,B-Type NATRIURETIC PEPTIDE 132.9 pg/mL (0-100)
--- NOTE | 2023-02-18 01:05 | ED.RN ---
Report called to Azeb SESAY on ICU.
[2023-02-18 01:07] LABS: Allen Test POS; Blood Gas Specimen Type ART; Mode AC/VC; SITE L RADIAL
[2023-02-18 01:08] LABS: Base Excess 26 mmol/L (-2 to +2); Bicarbonate 51.8 mmol/L (22-26); FI02 60; O2 Delivery Device Vent; PEEP 5; PO2 64 mmHG (75-100); RR 16; Time Given 2245; Vt 450; pCO2 96.6 mmHg (35-45); pH 7.34 (7.35-7.45)
[2023-02-18 01:09] LABS: SO2 88 % (95-99); Total Carbon Dioxide > 50 mmol/L
--- NOTE | 2023-02-18 01:42 | VDLE_ITS ---
Reason For Study: Swelling RIGHT LEFT GSV is normal. GSV is normal. CFV is compressible, spontaneous, phasic, CFV is compressible, spontaneous, phasic, competent and demonstrates normal competent, and demonstrates normal augmentation. augmentation. FV is compressible, spontaneous, phasic, FV is compressible, spontaneous, phasic, competent and demonstrates normal competent and demonstrates normal augmentation. augmentation. POP V is compressible, spontaneous, phasic, POP V is compressible, spontaneous, phasic, competent and demonstrates normal competent and demonstrates normal augmentation. augmentation. T/P Trunk is compressible. T/P Trunk is compressible. PTV is compressible. PTV is compressible. RT PerV is compressible. LT PerV is compressible. Procedure This is a venous duplex using B-mode, color flow and spectral Doppler. Exam performed portable in ICU/CCU. A preliminary report was called and/or faxed to Fabiano SESAY. VL/Venous Duplex US - Gray Extrem Interpretation Summary Deep veins of the bilateral lower extremities are patent and compressible segme ntally. There is no evidence of bilateral lower extremity deep vein thrombosis. The bilateral great saphenous veins appear patent and compressible segmentally. Ordering Physician: Rebecca Resendiz Referring Physician: Carol Carlisle Performed By: Fabi Delacruz, MARC, RVT
[2023-02-18] MEDS: Propofol 10MG/Ml 1,000 MG/100 ML Bottle 5.5 MG CONT INF (02:00)
[2023-02-18] MEDS: Ipratropium/Albuterol Sulfate 3 ML AMPUL.NEB INHALATION ×6 (02:11→23:31)
[2023-02-18 02:16] LABS: Allen Test Positive; Base Excess 20 mmol/L (-2 to +2); Bicarbonate 42.5 mmol/L (22-26); Blood Gas Specimen Type ART; FI02 50; Mode AC; O2 Delivery Device ET Tube; PEEP 5; PO2 49 mmHG (75-100); RR 16; SITE R Radial; SO2 87 % (95-99); Total Carbon Dioxide 44 mmol/L; Vt 450; pCO2 51.6 mmHg (35-45); pH 7.52 (7.35-7.45)
[2023-02-18] MEDS: 0.9% Saline Lock 10 ML Syringe IV ×4 (02:38→05:53)
[2023-02-18] MEDS: Furosemide 40 MG/4 ML Vial IV (02:38)
[2023-02-18 03:54] LABS: Absolute Lymphocyte Count 0.27 X10^3/uL (0.83-4.51); Absolute Neutrophil Count 5.3 X10^3/uL (2.0-7.7); Basophil# 0.01 X10^3/uL; Basophil% 0.2 % (0-1); Hematocrit 33.1 % (37-47); Hemoglobin 9.2 g/dL (12.0-15.0); Lymphocyte # 0.27 X10^3/ul (0.83-4.51); Lymphocyte % 4.5 % (19-41); Mean Corp Hgb Conc 27.8 g/dL (32-36); Mean Corpuscular Hgb 27.3 pg (27.0-32.0); Mean Corpuscular Volume 98.2 fL (81-99); Mean Platelet Vol. 9.1 fl (6.2-12.0); Monocyte# 0.34 X10^3/uL; Monocyte% 5.7 % (0-10); NRBC Flagged by Analyzer 0 % (0-5); Neutrophil # 5.26 X10^3/uL (2.7-7.7); Neutrophil % 88.6 % (47-70); POSITIVE DIFFERENTIAL YES; Platelet Count 116 K/mm3 (150-450); RBC Distribution Width CV 14.7 % (11.6-14.6); RBC Distribution Width SD 52.9 fl (35.1-43.9); Red Blood Count 3.37 M/mm3 (4.2-5.4); White Blood Count 5.9 K/mm3 (4.4-11.0)
[2023-02-18 03:55] LABS: Differential Indicated SCAN CRITERIA MET
[2023-02-18 04:08] LABS: Anisocytosis 1+
[2023-02-18 04:09] LABS: Platelet Estimate SLT DEC (ADEQ)
--- NOTE | 2023-02-18 04:14 | PCM.RX.CS ---
Consult Pharmacy has been consulted to manage selected antiobiotic: Vancomycin Type of Consult: New start Microbiology: Microbiology 02/17/23 22:35 Nasal Secretion SARS-CoV-2 & FLU Antigen (Rapid) - Final Goal Trough: 15-20 mcg/mL Pharmacy Plan for Drug Dosing: Pharmacy Service will continue to monitor and adjust dosing as required. Medications Vancomycin HCl (Vancomycin) 1,000 mg in 200 mls @ 200 mls/hr IV Q12H DIONY Discontinued Medications Vancomycin HCl 1,500 mg/ (Sodium Chloride) 530 mls @ 250 mls/hr IV X1 ONE Stop: 02/18/23 04:07 Last Admin: 02/18/23 03:42 Dose: 250 mls/hr Follow-Up Labs: Trough Vancomycin Labs to be done on [date and time ordered]: 02/19 @ [id number]
[2023-02-18 04:17] LABS: Procalcitonin 0.13 ng/mL (0.00-0.09)
[2023-02-18 04:21] LABS: M R Staph aureus DNA By PCR POSITIVE (Negative)
[2023-02-18 04:22] LABS: Probe Check PASS
[2023-02-18 04:24] LABS: ALB/GLOB Ratio 0.6 RATIO (0.9-2.4); AST(SGOT) 25 U/L (15-37); Alanine Aminotransfer ALT/SGPT 22 U/L (13-56); Albumin, Serum 2.7 g/dL (3.2-5.0); Alkaline Phosphatase 88 U/L (45-117); Anion Gap 3 (5-15); BUN 29 mg/dL (7-18); BUN/Creat Ratio 36.4 RATIO (10-20); Calcium,Total 8.9 mg/dL (8.5-10.1); Chloride 101 mmol/L (98-107); EST Glomerular Filtration Rate 75 mL/min (>60); Est Glom Filt Rate - Afr Amer 91 mL/min (>60); Estimated Creatinine Clearance 56.36 ml/min; Globulin 4.3 g/dL (2.2-4.2); Glucose 239 mg/dL (74-106); Magnesium 1.9 mg/dL (1.6-2.6); Phosphorus 1.3 mg/dL (2.5-4.9); Potassium 3.9 mmol/L (3.5-5.1); Sodium Level 146 mmol/L (136-145); Thyroid Stim Hormone (TSH) 0.74 uIU/mL (0.358-3.74)
[2023-02-18 04:25] LABS: CPK Total, Creatine Kinase 55 U/L (26-192); Triglycerides 128 mg/dL
--- NOTE | 2023-02-18 07:12 | PN.HOSP_ITS ---
Reason for Visit Reason for Visit: Diagnoses Metabolic encephalopathy (02/18/23) Acute and chronic respiratory failure with hypoxia (02/18/23) Acute and chronic respiratory failure with hypercapnia (02/18/23) Localized edema (02/18/23) Hyperglycemia, unspecified (02/18/23) Subjective Subjective Patient is a 72-year-old lady resident is an ECF was found unresponsive and hypoxic. An assessment of acute on chronic hypoxic and hypercapnic respiratory failure made patient intubated in the emergency department and subsequently transferred to the intensive care unit Objective Data Objective Data Vital Signs: Vital Signs Temp Pulse Resp BP Pulse Ox O2 Del Method FiO2 100.3 F H 110 H 16 101/54 L 97 Mechanical Ventilator 50 02/18/23 07:00 02/18/23 07:00 02/18/23 07:00 02/18/23 07:00 02/18/23 07:00 02/18/23 07:00 02/18/23 07:00 Oxygen Delivery Method Mechanical Ventilator Weight: 90.9 kg Body Mass Index (BMI) 33.3 Intake & Output: Intake and Output for Last 24 Hours 02/16/23 02/17/23 02/18/23 23:59 23:59 23:59 Intake Total 1030.02 / 1030.02 Output Total 1000 / 1000 Balance 30.02 / 30.02 Lab / Micro Data Result Diagrams: 02/18/23 03:40 02/18/23 03:40 Labs: Laboratory Results - last 24 hr 02/17/23 22:28: WBC 10.5, RBC 3.69 L, Hgb 10.1 L, Hct 37.3, MCV 101.1 H, MCH 27.4, MCHC 27.1 L, RDW Std Deviation 55.7 H, RDW Coeff of Amanda 15.0 H, Plt Count 163, MPV 8.4, Immature Gran % (Auto) 2.200 H, Neut % (Auto) 87.0 H, Lymph % (Auto) 6.6 L, Garrard % (Auto) 3.6, Eos % (Auto) 0.2, Baso % (Auto) 0.4, Absolute Neuts (auto) 9.1 H, Absolute Lymphs (auto) 0.69 L, Nucleated RBC % 0.2 02/17/23 22:28: Sodium 145, Potassium 4.1, Chloride 102, Carbon Dioxide 45.0 H, Anion Gap -2 L, BUN 23 H, Creatinine 0.64, Estim Creat Clear Calc 45.09, Est GFR (MDRD) Af Amer 118, Est GFR (MDRD) Non-Af 98, BUN/Creatinine Ratio 36.2 H, Glucose 238 H, Calcium 8.9, Total Bilirubin 0.50, AST 21, ALT 26, Alkaline Phosphatase 99, Troponin I High Sens 13, Total Protein 7.6, Albumin 2.9 L, Globulin 4.7 H, Albumin/Globulin Ratio 0.6 L 02/17/23 22:28: B-Natriuretic Peptide 132.9 H 02/17/23 22:30: Urine Color Yellow, Urine Clarity Sl. Cloudy, Urine pH 5.0, Ur Specific Putnam 1.030, Urine Protein 100 H, Urine Glucose (UA) Normal, Urine Ketones Negative, Urine Occult Blood 25 H, Urine Nitrite Negative, Urine Bilirubin Negative, Urine Urobilinogen Normal, Ur Leukocyte Esterase Negative, Urine RBC 0-5 SEEN, Urine WBC 0 SEEN, Ur Squamous Epith Cells 0-5 SEEN, Urine Bacteria 0 SEEN, Hyaline Casts 0-5 SEEN, Coarse Granular Casts 0-5 SEEN, Urine Mucus 0 SEEN 02/17/23 22:30: Urine Opiates Screen NEGATIVE, Urine Methadone Screen NEGATIVE, Ur Barbiturates Screen NEGATIVE, Ur Phencyclidine Scrn NEGATIVE, Ur Amphetamines Screen NEGATIVE, MDMA (Ecstasy) Screen NEGATIVE, U Benzodiazepines Scrn NEGATIVE, Urine Cocaine Screen NEGATIVE, U Cannabinoids Screen NEGATIVE, Ur Drug Screen Comment 02/17/23 22:32: Ethyl Alcohol < 3.0 02/18/23 02:30: MRSA (PCR) POSITIVE H 02/18/23 03:40: Procalcitonin 0.13 H 02/18/23 03:40: WBC 5.9, RBC 3.37 L, Hgb 9.2 L, Hct 33.1 L, MCV 98.2, MCH 27.3, MCHC 27.8 L, RDW Std Deviation 52.9 H, RDW Coeff of Amanda 14.7 H, Plt Count 116 L, MPV 9.1, Immature Gran % (Auto) 1.000 H, Neut % (Auto) 88.6 H, Lymph % (Auto) 4.5 L, Garrard % (Auto) 5.7, Eos % (Auto) 0.0, Baso % (Auto) 0.2, Absolute Neuts (auto) 5.3, Absolute Lymphs (auto) 0.27 L, Nucleated RBC % 0, Platelet Estimate SLT DEC, Anisocytosis 1+ 02/18/23 03:40: Sodium 146 H, Potassium 3.9, Chloride 101, Carbon Dioxide 42.0 H , Anion Gap 3 L, BUN 29 H, Creatinine 0.80, Estim Creat Clear Calc 56.36, Est GFR (MDRD) Af Amer 91, Est GFR (MDRD) Non-Af 75, BUN/Creatinine Ratio 36.4 H, Glucose 239 H, Calcium 8.9, Magnesium 1.9, Total Bilirubin 0.70, AST 25, ALT 22, Alkaline Phosphatase 88, Total Protein 7.0, Albumin 2.7 L, Globulin 4.3 H, Albumin/Globulin Ratio 0.6 L, TSH 0.74 02/18/23 03:40: Phosphorus 1.3 L 02/18/23 03:40: Triglycerides 128 02/18/23 03:40: Total Creatine Kinase 55 Micro: Microbiology 02/17/23 22:33 Urine Catheter - Barnes Legionella Antigen - Final 02/17/23 22:33 Urine Catheter - Catheter Streptococcus pneumoniae Antigen (M - Final 02/17/23 22:35 Nasal Secretion SARS-CoV-2 & FLU Antigen (Rapid) - Final ABG Data ABG results: ABG 02/17/23 02/18/23 22:45 02:07 Specimen Type ART ART Sample Site L RADIAL R Radial pH 7.34 L 7.52 H Bicarbonate Actual 51.8 H 42.5 H Total CO2 > 50 44 Base Excess 26 H 20 H O2 Saturation 88 L 87 L O2 % 60 50 ABG pCO2 96.6 H* 51.6 H ABG pO2 64 L 49 L Jovon Test POS Positive Respiration Rate 16 16 O2 Delivery Device Vent ET Tube Vent Mode AC/VC AC Tidal Volume 450 450 POC PEEP 5 5 Crit Call To/Read Back Yes Blood Gas Notified Whom ED Blood Gas Notified Time 8607 Radiography Diagnostic Testing: Radiology Impression Brain CT 02/17/23 22:26 IMPRESSION: 1. No evidence of acute intracranial pathology. 2. Diffuse involutional changes and chronic ischemic small vessel white matter disease. AIDOC was utilized to assist in identifying pertinent positive findings. Electronically Signed: Calvin Botello MD at 0:04 EDT , Chest X-Ray 02/17/23 22:26 IMPRESSION: 1. Dense left pleural parenchymal disease with pleural effusion not excluded. 2. Atelectasis versus infiltrate at the right lung base. 3. Satisfactory position of support devices. Electronically Signed: Calvin Botello MD at 0:01 EDT , Chest CT 02/18/23 00:14 IMPRESSION: 1. Bilateral lower lobe consolidation consistent with pneumonia. 2. Small bilateral pleural effusions. 3. Lingular atelectasis versus infiltrate. 4. 4 mm right upper lobe pulmonary nodule. Per Fleischner criteria, if the patient has increased risk factors for lung cancer, recommend follow-up CT of the chest in 12 months. Otherwise no follow-up is recommended. 5. 2.5 cm and 1.6 cm left adrenal gland nodules with indeterminate attenuation values. Per ACR White Paper, recommend follow-up with nonemergent adrenal CT. 6. Cardiomegaly. 7. 1.3 cm asymmetric density in the anterior left breast. Consider follow-up with diagnostic mammography. Electronically Signed: Basim Leija DO at 2:02 EDT , Rhythm Strip Rhythm Strip: Sinus Rhythm Rate: 95 Ectopy: None Physical Exam Narrative GENERAL: Awake on the vent HEENT: Atraumatic; normocephalic EYES; Anicteric, Normal Conjunctiva NECK; supple, normal thyroid, RESPIRATORY: Diminished to auscultation CARDIOVASCULAR: Regular S1 S2, GI: soft, normoactive bowel sounds, : No Renal angle tenderness; EXTREMITIES: No edema, no clubbing, MUSCULOSKELETAL: no muscle wasting NEURO: Awake; no lateralizing signs. SKIN: No Rash PSYCH; Flat affect Assessment & Plan Assessment/Plan (1) Metabolic encephalopathy: (2) Acute on chronic respiratory failure with hypoxia and hypercapnia: (3) Hyperglycemia: (4) Lower extremity edema: PLAN: Plan Patient is a 72-year-old lady resident is an ECF was found unresponsive and hypoxic. An assessment of acute on chronic hypoxic and hypercapnic respiratory failure made patient intubated in the emergency department and subsequently roy sferred to the intensive care unit 1. Acute on chronic hypoxic respiratory failure ? Secondary to combination of pneumonia and possible CHF 2. Suspected pneumonia with MDR's ? Admitted to the intensive care unit patient presented in respiratory failure currently on broad-spectrum antibiotic therapy with Zosyn and vancomycin cultures sent we will follow-up on result 3. Acute congestive heart failure (unspecified) ? Patient did receive Lasix. Echo ordered for EF assess 4. Acute metabolic encephalopathy ? Secondary to CO2 narcosis. Patient level of sensorium improving 5. Diabetes mellitus type II -patient's oral hypoglycemics held. Placed on long acting insulin, Accu-Cheks a.c. and at bedtime and covered with sliding scale insulin 6. Anemia - Secondary to chronic disorder monitoring H&H and transfuse if patient becomes symptomatic or hemoglobin falls below 7 -Continue home iron 7. Diabetic polyneuropathy ? Patient is on gabapentin held 8. Essential hypertension ? Antihypertensives held 9. GERD ? Patient is on PPI 10. Chronic thrombocytopenia ? Monitoring with daily platelet levels 11. Dyslipidemia -Patient is on statin therapy, continued at home dose 12. Cervical spine fracture of sixth and seventh cervical vertebrae. Appears to be stable; reason she was in a nursing facility at this time. PT/OT consultation 13. Class I obesity with BMI of 33 ? Complicating care 14. Obstructive sleep apnea ? PAP therapy at bedtime 14. DVT prophylaxis -Lovenox daily 40 mg Time spent in the patient's overall evaluation,decision-making process, review of diagnostic data, adjustment of management, discussion with other providers, nursing nursing and ancillary staff involved in patient's care documentation, 55 Minutes Charges/Coding Visit Charges Inpatient E&M: 17342 [facility] Hosp L3
[2023-02-18] MEDS: Enoxaparin 40 MG/0.4 ML Syringe SC (07:55)
[2023-02-18] MEDS: Docusate Sodium 100 MG Capsule PO (07:55)
[2023-02-18] MEDS: Folic Acid 1 MG Tablet PO (07:55)
[2023-02-18] MEDS: Chlorhexidine 15 ML PO ×2 (07:56→21:42)
--- NOTE | 2023-02-18 08:21 | ECHOCS_ITS ---
Reason For Study: CHF Procedure This was a 2D Doppler, Color Flow transthoracic echocardiogram. The study was technically difficult. Contrast injection was performed. Exam performed portable in ICU/CCU. Left Ventricle Severely dilated left ventricle. Severe global left ventricular systolic dysfunction. The left ventricular ejection fraction is 10 %. Right Ventricle Normal RV size. Mild global right ventricular systolic dysfunction. Atria The left atrium is mildly enlarged. The right atrium is not well visualized. Mitral Valve Trivial mitral valve insufficiency. Tricuspid Valve The tricuspid valve is not well visualized. Aortic Valve The aortic valve is not well visualized in the short axis view. There is no aortic stenosis. No aortic valve insufficiency. Pulmonic Valve The pulmonic valve is not well visualized. Great Vessels Normal sized aortic root. Pericardium/Pleural No pericardial effusion. Large left pleural effusion. Medication Diluted definity 2ml given slow IV push to enhance endocardial definition. MMode/2D Measurements & Calculations LVIDd: 5.6 cm IVSd: 1.1 cm Ao root diam: 3.5 cm LVIDs: 5.0 cm LVPWd: 1.1 cm LA dimension: 4.2 cm FS: 10.4 % LAV(MOD-sp4): 67.9 ml LA A4 area: 23.8 cm2 RA A4 area: 19.2 cm2 Doppler Measurements & Calculations MV E max cash: 107.5 cm/sec Lat Peak E' Cash: 7.5 cm/sec Med Peak E' Cash: 8.8 cm/sec MV A max cash: 147.2 cm/sec E/E' lat: 14.3 E/E' med: 12.3 MV E/A: 0.73 MV V2 max: 195.9 cm/sec Ao V2 max: 181.7 cm/sec LV V1 max: 97.6 cm/sec MV max P.3 mmHg Ao max P.2 mmHg LV V1 max P.8 mmHg MV V2 mean: 118.0 cm/sec MV mean P.6 mmHg MV V2 VTI: 29.5 cm PA V2 max: 152.5 cm/sec PA V2 mean: 97.7 cm/sec ECHO/Echo Complete W/ Contrast Interpretation Summary The study was technically difficult. Severely dilated left ventricle. Severe global left ventricular systolic dysfunction. The left ventricular ejection fraction is 10 %. Mild global right ventricular systolic dysfunction. Large left pleural effusion. Ordering Physician: Hernando Padron Performed By: Bhupinder Rendon RCS
[2023-02-18 08:46] LABS: Allen Test Positive; Base Excess 20 mmol/L (-2 to +2); Bicarbonate 40.4 mmol/L (22-26); Blood Gas Specimen Type ART; FI02 35; Mode AC; O2 Delivery Device Adult Vent; PEEP 7; PO2 79 mmHG (75-100); RR 16; SITE L Radial; SO2 98 % (95-99); Total Carbon Dioxide 42 mmol/L; Vt 375; pCO2 36.3 mmHg (35-45); pH 7.66 (7.35-7.45)
--- NOTE | 2023-02-18 09:53 | EX.PCM.CONCC ---
Assessment & Plan Assessment/Plan (1) Acute on chronic respiratory failure with hypoxia and hypercapnia: (2) COPD (chronic obstructive pulmonary disease): (3) Pneumonia: PLAN: Plan Impression: 1. Left lower lobe pneumonia, with possible left pleural effusion 2. Acute on chronic hypoxic and hypercarbic respiratory failure, on mechanical ventilation 3. Medical blastic anemia, possible B12 or folate deficiency Proteinuria Hypophosphatemia MRSA positive swab Occult hematuria Abnormal EKG, normal troponins. Plan: 1. Support on ventilator, wean as tolerated, ventilator bundle, head of bed 30 degrees, chlorhexidine, SBT, SAT per protocol 2. Bronchopulmonary hygiene 3. Zosyn and vancomycin empirically, 4. Patient cultured, await results, adjust antibiotics as needed 5. Potassium phosphate supplementation, recheck phosphate later today 6. Maintenance fluids with D5 half-normal saline at 30 cc/h 6. Ultrasound of left hemithorax to rule out effusion, if present she should have a tap. IR was consulted, preprocedure labs placed. 7. Follow-up of urinary abnormalities per primary team once the patient stabilizes. 8. Monitor cardiac status. BNP is currently normal Thank you for consulting [facility] for critical care. We will follow the patient with you.. Martín Monique MD [facility] H[facility] Consult Data Date of Consult: 02/18/23 HPI Narrative Reason for Consultation: Respiratory failure on mechanical ventilation, chronic hypercarbia HPI Narrative: POLI CROOKS, is a unfortunate 72-year-old woman who was at the custodial for rehab after neck fracture was found unresponsive at her custodial with SPO2 70s GCS 3.? No response to Narcan, Ambu bag on route., transported to the ER. ?O2 saturation on presentation in ER 60%, not breathing. ?She was last seen normal 3 hours prior to her ER arrival. ?There was no family.? EKG showed a possible NSTEMI but artifact was present. ?She was DNR CCA. ? Intubated in ER for respiratory failure and hypoxemia.? Initial venous gas after intubation was 7.33 PCO2 96.? Neph was -22.? Work-up showed a left lower lobe pneumonia with possible effusion.? Her temperature was hypothermic at 96.3.? Vital signs otherwise stable.? She was immediately back to the 98% sat range, and her initial saturation on mechanical ventilation was 94%.? She was stable and transferred to ICU. She was initially on 100% FiO2, during the course of the night her ventilator was weaned to a tidal volume of 450, rate of 20, PEEP of 5, FiO2 of 50%.? Her ABG in ICU showed acute respiratory alkalosis on top of chronic respiratory acidosis. Ventilator settings were weaned to tidal volume 375, rate 16, PEEP 7, FiO2 35%.? At that time she had awoken, was responsive, breathing spontaneously with a good cough.? It was noted that her baseline PCO2 is usually in the 60s.? I noted she has mild to moderate amounts of allen sputum, normal thickness.? Patient is able to raise it with coughing. She was then placed on a pressure support SBT with PEEP of 5 and pressure support of 8.? Her blood gas on that was 7.48, PCO2 42, PO2 76.? She was noted to be having apneas during the trial, likely because of trying to reestablish her chronic CO2 level.? She was placed back on the ventilator with a tidal volume of 325, FiO2 of 35%, PEEP of 5.? No pressure support.? Rate of 10. Labs were remarkable for normal white count, hemoglobin 10.1, 2% bands, CO2 45, normal anion gap, BUN 23, creatinine 1.64, glucose 238, normal liver function test, albumin 2.9.? Urinalysis is unremarkable except for positive protein and occult blood with few red cells.? Talk screen was negative.? Alcohol less than [address] scan was negative. Past medical history anemia, ASHD, DVT chronic right lower extremity, chronic respiratory failure with hypoxia, COPD, dysphagia, hypertension, GERD, frequent falls, insomnia, obstructive sleep apnea, [place], generalized weakness, displaced fracture of the sixth and seventh cervical vertebrae, pancytopenia, history of breast cancer, nicotine dependence, osteoarthritis both shoulders, type 2 diabetes with diabetic neuropathy, impaired mobility, venous insufficiency, urinary incontinence. Her home medications were reviewed. Surgical history: Left breast lumpectomy, C-spine surgery, cholecystectomy. Family history is noncontributory.? Social history she is a former smoker. [facility] Medical History (Updated 02/18/23 @ 12:[address] 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 Chronic respiratory failure with hypoxia COPD (chronic obstructive pulmonary disease) Dysphagia Essential hypertension GERD (gastroesophageal reflux disease) History of falling Insomnia, unspecified Iron deficiency anemia Muscle weakness (generalized) Myocardial infarction Obstructive sleep apnea Other displaced fracture of seventh cervical vertebra, subsequent encounter for fracture with routine healing Other displaced fracture of sixth cervical vertebra, subsequent encounter for fracture with routine healing Other lack of coordination Other pancytopenia Personal history of malignant neoplasm of breast Personal history of nicotine dependence Pneumonia Primary osteoarthritis, left shoulder Primary osteoarthritis, right shoulder Pure hypercholesterolemia Respiratory failure with hypoxia Thrombocytopenia Type 2 diabetes mellitus with diabetic neuropathy Unspecified abnormalities of gait and mobility Urinary incontinence Venous insufficiency Venous insufficiency (chronic) (peripheral) Vitamin B12 deficiency Home Medications gabapentin 300 mg capsule 300 mg PO TID Check with primary doctor 11/24/21 [History Last Taken Unknown] losartan 100 mg tablet 100 mg PO DAILY Check with primary doctor 11/24/21 [History Last Taken Unknown] metoprolol succinate 50 mg tablet,extended release 24 hr 50 PO DAILY Check with primary doctor 11/24/21 [History Last Taken Unknown] nystatin 100,000 unit/gram topical cream 1 applic topical BID Check with primary doctor 11/24/21 [History Last Taken Unknown] omeprazole 20 mg capsule,delayed release 20 mg PO DAILY Check with primary doctor 11/24/21 [History Last Taken Unknown] simvastatin 10 mg tablet 10 mg PO QHS Check with primary doctor 11/24/21 [History Last Taken Unknown] bisacodyl 10 mg rectal suppository 10 mg TX DAILY PRN 11/11/22 [History Last Taken Unknown] cranberry 400 mg capsule 400 mg PO DAILY 11/11/22 [History Last Taken Unknown] cyanocobalamin (vitamin B-12) 1,000 mcg capsule 1,000 mcg PO DAILY 11/11/22 [History Last Taken Unknown] docusate sodium 100 mg capsule 100 mg PO DAILY 11/11/22 [History Last Taken Unknown] ferrous sulfate 200 mg (40 mg iron) tablet PO 11/11/22 [History Last Taken Unknown] folic acid 1 mg tablet 1 mg PO DAILY 11/11/22 [History Last Taken Unknown] glimepiride 1 mg tablet (Amaryl) 1 mg PO DAILY 11/11/22 [History Last Taken Unknown] glucagon 1 mg injection kit mg IM 11/11/22 [History Last Taken Unknown] oxycodone 5 mg capsule 5 mg PO Q6H PRN 11/11/22 [History Last Taken Unknown] Allergy/AdvReac Type Severity Reaction Status Date / Time cyclobenzaprine Allergy Other Verified 02/17/23 22:35 [From Flexeril] tizanidine [From Zanaflex] Allergy Other Verified 02/17/23 22:35 Family History Sister Breast cancer Grandmother Diabetes Surgical History History of lumpectomy of left breast Hx of cervical spine surgery Hx of cholecystectomy Social History (Updated 02/18/23 @ 00:[address] Rebecca Resendiz DO) housing: custodial Smoking Status: Former smoker alcohol intake: never substance use type: does not use ROS ROS Narrative Unobtainable on mechanical ventilation. Physical Exam Narrative Chronically ill-appearing elderly woman who is sleeping on the ventilator but able to open eyes track and respond to commands when stimulated. BMI 33, vital signs noted. HEENT exam shows endotracheal tube in good position with mild 10 creamy secretions easily suctioned and cough. No hemoptysis. Extraoculars are intact. Mucous membranes moist. No neck range of motion was done. Chest is diminished at the left base with no wheezes rales or rhonchi. Consolidation is present. Otherwise clear. Heart normal S1-S2 with no murmurs rubs or gallops Abdomen is soft, nontender, firm, no rebound. Positive bowel sounds no organomegaly. Extremities have no clubbing cyanosis and trace edema Peripheral IVs are intact infusing well without erythema Neuro is grossly nonfocal, unable to test completely with sedation. Moves all 4 extremities. Skin is cool and dry. Medical Records Data Attestation: I reviewed the patient's medical records Lab / Micro Data Attestation: I reviewed the patient's lab results. Result Diagrams: 02/18/23 03:40 02/18/23 03:40 Labs: Laboratory Results - last 24 hr 02/17/23 22:28: WBC 10.5, RBC 3.69 L, Hgb 10.1 L, Hct 37.3, MCV 101.1 H, MCH 27.4, MCHC 27.1 L, RDW Std Deviation 55.7 H, RDW Coeff of Amanda 15.0 H, Plt Count 163, MPV 8.4, Immature Gran % (Auto) 2.200 H, Neut % (Auto) 87.0 H, Lymph % (Auto) 6.6 L, [place] % (Auto) 3.6, Eos % (Auto) 0.2, Baso % (Auto) 0.4, Absolute Neuts (auto) 9.1 H, Absolute Lymphs (auto) 0.69 L, Nucleated RBC % 0.2 02/17/23 22:28: Sodium 145, Potassium 4.1, Chloride 102, Carbon Dioxide 45.0 H, Anion Gap -2 L, BUN 23 H, Creatinine 0.64, Estim Creat Clear Calc 45.09, Est GFR (MDRD) Af Amer 118, Est GFR (MDRD) Non-Af 98, BUN/Creatinine Ratio 36.2 H, Glucose 238 H, Calcium 8.9, Total Bilirubin 0.50, AST 21, ALT 26, Alkaline Phosphatase 99, Troponin I High Sens 13, Total Protein 7.6, Albumin 2.9 L, Globulin 4.7 H, Albumin/Globulin Ratio 0.6 L 02/17/23 22:28: B-Natriuretic Peptide 132.9 H 02/17/23 22:30: Urine Color Yellow, Urine Clarity Sl. Cloudy, Urine pH 5.0, Ur Specific [place] 1.030, Urine Protein 100 H, Urine Glucose (UA) Normal, Urine Ketones Negative, Urine Occult Blood 25 H, Urine Nitrite Negative, Urine Bilirubin Negative, Urine Urobilinogen Normal, Ur Leukocyte Esterase Negative, Urine RBC 0-5 SEEN, Urine WBC 0 SEEN, Ur Squamous Epith Cells 0-5 SEEN, Urine Bacteria 0 SEEN, Hyaline Casts 0-5 SEEN, Coarse Granular Casts 0-5 SEEN, Urine Mucus 0 SEEN 02/17/23 22:30: Urine Opiates Screen NEGATIVE, Urine Methadone Screen NEGATIVE, Ur Barbiturates Screen NEGATIVE, Ur Phencyclidine Scrn NEGATIVE, Ur Amphetamines Screen NEGATIVE, MDMA (Ecstasy) Screen NEGATIVE, U Benzodiazepines Scrn NEGATIVE, Urine Cocaine Screen NEGATIVE, U Cannabinoids Screen NEGATIVE, Ur Drug Screen Comment 02/17/23 22:32: Ethyl Alcohol < 3.0 02/18/23 02:30: MRSA (PCR) POSITIVE H 02/18/23 03:40: Procalcitonin 0.13 H 02/18/23 03:40: WBC 5.9, RBC 3.37 L, Hgb 9.2 L, Hct 33.1 L, MCV 98.2, MCH 27.3, MCHC 27.8 L, RDW Std Deviation 52.9 H, RDW Coeff of Amanda 14.7 H, Plt Count 116 L, MPV 9.1, Immature Gran % (Auto) 1.000 H, Neut % (Auto) 88.6 H, Lymph % (Auto) 4.5 L, [place] % (Auto) 5.7, Eos % (Auto) 0.0, Baso % (Auto) 0.2, Absolute Neuts (auto) 5.3, Absolute Lymphs (auto) 0.27 L, Nucleated RBC % 0, Platelet Estimate SLT DEC, Anisocytosis 1+ 02/18/23 03:40: Sodium 146 H, Potassium 3.9, Chloride 101, Carbon Dioxide 42.0 H, Anion Gap 3 L, BUN 29 H, Creatinine 0.80, Estim Creat Clear Calc 56.36, Est GFR (MDRD) Af Amer 91, Est GFR (MDRD) Non-Af 75, BUN/Creatinine Ratio 36.4 H, Glucose 239 H, Calcium 8.9, Magnesium 1.9, Total Bilirubin 0.70, AST 25, ALT 22, Alkaline Phosphatase 88, Total Protein 7.0, Albumin 2.7 L, Globulin 4.3 H, Albumin/Globulin Ratio 0.6 L, TSH 0.74 02/18/23 03:40: Phosphorus 1.3 L 02/18/23 03:40: Triglycerides 128 02/18/23 03:40: Total Creatine Kinase 55 Micro: Microbiology 02/17/23 22:33 Urine Catheter - Barnes Legionella Antigen - Final 02/17/23 22:33 Urine Catheter - Catheter Streptococcus pneumoniae Antigen (M - Final 02/17/23 22:35 Nasal Secretion SARS-CoV-2 & FLU Antigen (Rapid) - Final ABG Data ABG results: ABG 02/17/23 02/18/23 02/18/23 22:45 02:07 08:39 Specimen Type ART ART ART Sample Site L RADIAL R Radial L Radial pH 7.34 L 7.52 H 7.66 H* Bicarbonate Actual 51.8 H 42.5 H 40.4 H Total CO2 > 50 44 42 Base Excess 26 H 20 H 20 H O2 Saturation 88 L 87 L 98 O2 % 60 50 35 ABG pCO2 96.6 H* 51.6 H 36.3 ABG pO2 64 L 49 L 79 Jovon Test POS Positive Positive Respiration Rate 16 16 16 O2 Delivery Device Vent ET Tube Adult Vent Vent Mode AC/VC AC AC Tidal Volume 450 450 375 POC PEEP 5 5 7 Crit Call To/Read Back Yes Yes Blood Gas Notified Whom ED MD MONIQUE Blood Gas Notified Time 9725 Rhythm Strip Rhythm Strip: Sinus Rhythm Rate: 95 Ectopy: None Radiology Impression Brain CT 02/17/23 22:26 IMPRESSION: 1. No evidence of acute intracranial pathology. 2. Diffuse involutional changes and chronic ischemic small vessel white matter disease. AIDOC was utilized to assist in identifying pertinent positive findings. Electronically Signed: Calvin Botello MD at 0:04 EDT , Chest X-Ray 02/17/23 22:26 IMPRESSION: 1. Dense left pleural parenchymal disease with pleural effusion not excluded. 2. Atelectasis versus infiltrate at the right lung base. 3. Satisfactory position of support devices. Electronically Signed: Calvin Botello MD at 0:01 EDT , Chest CT 02/18/23 00:14 IMPRESSION: 1. Bilateral lower lobe consolidation consistent with pneumonia. 2. Small bilateral pleural effusions. 3. Lingular atelectasis versus infiltrate. 4. 4 mm right upper lobe pulmonary nodule. Per Fleischner criteria, if the patient has increased risk factors for lung cancer, recommend follow-up CT of the chest in 12 months. Otherwise no follow-up is recommended. 5. 2.5 cm and 1.6 cm left adrenal gland nodules with indeterminate attenuation values. Per ACR White Paper, recommend follow-up with nonemergent adrenal CT. 6. Cardiomegaly. 7. 1.3 cm asymmetric density in the anterior left breast. Consider follow-up with diagnostic mammography. Electronically Signed: Basim Leija DO at 2:02 EDT , Charges/Coding Procedures Hospitalists Procedures: 11981 Critial Care 1st Hr
[2023-02-18] MEDS: Dext 5%-0.45% NS 1,000 ML 30 ML IV (11:27)
[2023-02-18] MEDS: Metoprolol Tartrate 5 MG/5 ML Vial IV (11:38)
[2023-02-18] MEDS: Acetaminophen 325 MG Tablet 650 MG PO ×2 (11:48→21:45)
--- NOTE | 2023-02-18 12:16 | US_ITS ---
STUDY: SUPERFICIAL ULTRASOUND - BILATERAL PLEURAL SPACES. REASON FOR EXAM: Female, 72 years old. Possible left pleural effusion; LLL pna TECHNIQUE: A superficial ultrasound was performed with real-time and static saleem-scale imaging. COMPARISON: None. FINDINGS: No significant effusions are seen. Bibasilar pulmonary infiltrates. US/Chest IMPRESSION: No significant effusions are seen. Bibasilar pulmonary infiltrates. Electronically Signed: Thomas Ahumada MD at 14:45 EDT ,
--- NOTE | 2023-02-18 15:25 | CPS ---
Patient returning Vt of 119
--- NOTE | 2023-02-18 16:09 | CASEMGMT ---
Patient is from [facility]. Patient is on the vent at this time. SW sent updates to [facility]. Precious HACKETT
--- NOTE | 2023-02-18 16:22 | CASEMGMT ---
Social Work SW spoke with Kiana at [facility]. Pt is currently a nursing home pt at the facility and a medicaid bed hold. Pt can return to [facility] when medically ready. Plan: [facility], when medically ready SYDNEY Brannon
[2023-02-18] MEDS: Vancomycin IV 1,000 MG/200 ML BAG 200 MG IV (16:30)
[2023-02-18 18:15] LABS: Allen Test P; Blood Gas Specimen Type ART; Mode PS; SITE R RADIAL
[2023-02-18 18:16] LABS: FI02 35; PEEP 5; PS 14
[2023-02-18 18:17] LABS: Time Given 1716
[2023-02-18 18:18] LABS: Bicarbonate 50.4 mmol/L (22-26); PO2 62 mmHG (75-100); pCO2 59.3 mmHg (35-45); pH 7.54 (7.35-7.45)
[2023-02-18 18:19] LABS: Base Excess 28 mmol/L (-2 to +2); Total Carbon Dioxide > 50 mmol/L
[2023-02-18 18:21] LABS: SO2 93 % (95-99)
[2023-02-19] VITALS (37 sets, daily range): BP systolic 94–118; BP diastolic 49–70; PULSE 67–96; RESP 12–27; TEMP 37.2–37.9; O2SAT 92–99; BMI 33.7
[2023-02-19] MEDS: Metoprolol Tartrate 5 MG/5 ML Vial IV ×2 (00:52→05:58)
[2023-02-19] MEDS: Ipratropium/Albuterol Sulfate 3 ML AMPUL.NEB INHALATION ×6 (02:10→22:31)
[2023-02-19] MEDS: Vancomycin IV 1,000 MG/200 ML BAG 200 MG IV ×2 (03:47→16:39)
[2023-02-19] MEDS: 0.9% Saline Lock 10 ML Syringe IV ×3 (03:47→14:46)
[2023-02-19] MEDS: CHLORHEXIDINE GLUC 2% CLOTH 1 EACH TOWELETTE TOPICAL ×2 (04:00→09:54)
[2023-02-19 04:01] LABS: Absolute Lymphocyte Count 0.66 X10^3/uL (0.83-4.51); Absolute Neutrophil Count 3.8 X10^3/uL (2.0-7.7); Eosinophil# 0.01 X10^3/uL; Eosinophils% 0.2 % (0-5); Hematocrit 25.5 % (37-47); Hemoglobin 7.5 g/dL (12.0-15.0); Lymphocyte # 0.66 X10^3/ul (0.83-4.51); Lymphocyte % 13.9 % (19-41); Mean Corp Hgb Conc 29.4 g/dL (32-36); Mean Corpuscular Hgb 27.9 pg (27.0-32.0); Mean Corpuscular Volume 94.8 fL (81-99); Monocyte# 0.31 X10^3/uL; Monocyte% 6.5 % (0-10); NRBC Flagged by Analyzer 0 % (0-5); Neutrophil # 3.76 X10^3/uL (2.7-7.7); Platelet Count 104 K/mm3 (150-450); RBC Distribution Width CV 15.8 % (11.6-14.6); Red Blood Count 2.69 M/mm3 (4.2-5.4); White Blood Count 4.8 K/mm3 (4.4-11.0)
[2023-02-19 04:26] LABS: Base Excess 20 mmol/L (-2 to +2); Bicarbonate 42.3 mmol/L (22-26); Blood Gas Specimen Type ART; FI02 40; Mode AC; O2 Delivery Device Adult Vent; PEEP 7; PO2 81 mmHG (75-100); RR 16; SITE L Radial; SO2 97 % (95-99); Total Carbon Dioxide 44 mmol/L; Vt 325; pCO2 48.2 mmHg (35-45); pH 7.55 (7.35-7.45)
[2023-02-19 04:29] LABS: ALB/GLOB Ratio 0.6 RATIO (0.9-2.4); AST(SGOT) 25 U/L (15-37); Alanine Aminotransfer ALT/SGPT 22 U/L (13-56); Albumin, Serum 2.3 g/dL (3.2-5.0); Alkaline Phosphatase 69 U/L (45-117); Anion Gap 3 (5-15); BUN 29 mg/dL (7-18); BUN/Creat Ratio 36.4 RATIO (10-20); Calcium,Total 7.9 mg/dL (8.5-10.1); Chloride 104 mmol/L (98-107); EST Glomerular Filtration Rate 75 mL/min (>60); Est Glom Filt Rate - Afr Amer 91 mL/min (>60); Estimated Creatinine Clearance 56.36 ml/min; Globulin 3.6 g/dL (2.2-4.2); Glucose 162 mg/dL (74-106); Phosphorus 3.6 mg/dL (2.5-4.9); Protein, Total 5.9 g/dL (6.4-8.2); Sodium Level 148 mmol/L (136-145)
[2023-02-19] MEDS: TITRATION PARAMETER CHANGE 1 EACH IV (06:50)
--- NOTE | 2023-02-19 07:10 | PCM.PN.HOSP ---
Reason for Visit Reason for Visit: Diagnoses Metabolic encephalopathy (02/18/23) Pneumonia, unspecified organism (02/18/23) Chronic obstructive pulmonary disease, unspecified (02/18/23) Acute and chronic respiratory failure with hypoxia (02/18/23) Acute and chronic respiratory failure with hypercapnia (02/18/23) Localized edema (02/18/23) Hyperglycemia, unspecified (02/18/23) Subjective Subjective Patient seen remains on the vent. 2D echo obtained the day prior did show EF of 10% Objective Data Objective Data Vital Signs: Vital Signs Temp Pulse Resp BP Pulse Ox O2 Del Method FiO2 99.1 F 67 14 106/59 L 96 Mechanical Ventilator 40 02/19/23 06:00 02/19/23 06:00 02/19/23 06:00 02/19/23 06:00 02/19/23 06:00 02/19/23 06:00 02/19/23 06:00 Oxygen Delivery Method Mechanical Ventilator Weight: 91.9 kg Body Mass Index (BMI) 33.7 Intake & Output: Intake and Output for Last 24 Hours 02/17/23 02/18/23 02/19/23 23:59 23:59 23:59 Intake Total 2104.9633 / 2106.6633 277.22 / 277.22 Output Total 3250 / 3400 550 / 550 Balance -1145.0367 / -1293.3367 -272.78 / -272.78 Lab / Micro Data Result Diagrams: 02/19/23 03:55 02/19/23 03:55 Labs: Laboratory Results - last 24 hr 02/19/23 03:55: WBC 4.8, RBC 2.69 L, Hgb 7.5 L, Hct 25.5 L, MCV 94.8, MCH 27.9, MCHC 29.4 L D, RDW Std Deviation 54.0 H, RDW Coeff of Amanda 15.8 H, Plt Count 104 L, MPV 9.0, Immature Gran % (Auto) 0.400, Neut % (Auto) 79.0 H, Lymph % (Auto) 13.9 L, [place] % (Auto) 6.5, Eos % (Auto) 0.2, Baso % (Auto) 0.0, Absolute Neuts (auto) 3.8, Absolute Lymphs (auto) 0.66 L, Nucleated RBC % 0 02/19/23 03:55: Sodium 148 H, Potassium 3.0 L, Chloride 104, Carbon Dioxide 41.0 H, Anion Gap 3 L, BUN 29 H, Creatinine 0.80, Estim Creat Clear Calc 56.36, Est GFR (MDRD) Af Amer 91, Est GFR (MDRD) Non-Af 75, BUN/Creatinine Ratio 36.4 H, Glucose 162 H, Calcium 7.9 L, Phosphorus 3.6, Magnesium 2.0, Total Bilirubin 0.60, AST 25, ALT 22, Alkaline Phosphatase 69, Total Protein 5.9 L, Albumin 2.3 L, Globulin 3.6, Albumin/Globulin Ratio 0.6 L Micro: Microbiology 02/18/23 00:35 Sputum, Induced/[place]uk[place] Gram Stain - Final 02/17/23 22:33 Urine Catheter - Barnes Legionella Antigen - Final 02/17/23 22:33 Urine Catheter - Catheter Streptococcus pneumoniae Antigen (M - Final 02/17/23 22:35 Nasal Secretion SARS-CoV-2 & FLU Antigen (Rapid) - Final ABG Data ABG results: ABG 02/18/23 02/18/23 02/19/23 08:39 17:16 04:19 Specimen Type ART ART ART Sample Site L Radial R RADIAL L Radial pH 7.66 H* 7.54 H 7.55 H Bicarbonate Actual 40.4 H 50.4 H 42.3 H Total CO2 42 > 50 44 Base Excess 20 H 28 H 20 H O2 Saturation 98 93 L 97 O2 % 35 35 40 ABG pCO2 36.3 59.3 H 48.2 H ABG pO2 79 62 L 81 Jovon Test Positive P N/A Respiration Rate 16 16 O2 Delivery Device Adult Vent Adult Vent Vent Mode AC PS AC Tidal Volume 375 325 POC PEEP 7 5 7 POC Pressure Suppt 14 Crit Call To/Read Back Yes Blood Gas Notified Whom STEW SILVA Blood Gas Notified Time 1716 Radiography Diagnostic Testing: Radiology Impression Echocardiogram 02/18/23 08:21 Interpretation Summary The study was technically difficult. Severely dilated left ventricle. Severe global left ventricular systolic dysfunction. The left ventricular ejection fraction is 10 %. Mild global right ventricular systolic dysfunction. Large left pleural effusion. Ordering Physician: Hernando Padron Performed By: Bhupinder Rendon RCS Chest Ultrasound 02/18/23 12:16 IMPRESSION: No significant effusions are seen. Bibasilar pulmonary infiltrates. Electronically Signed: Thomas Ahumada MD at 14:45 EDT , Rhythm Strip Rhythm Strip: Sinus Rhythm Rate: 95 Ectopy: None Physical Exam Narrative GENERAL: Awake on the vent HEENT: Atraumatic; normocephalic EYES; Anicteric, Normal Conjunctiva NECK; supple, normal thyroid, RESPIRATORY: Diminished to auscultation CARDIOVASCULAR: Regular S1 S2, GI: soft, normoactive bowel sounds, : No Renal angle tenderness; EXTREMITIES: No edema, no clubbing, MUSCULOSKELETAL: no muscle wasting NEURO: Awake; no lateralizing signs. SKIN: No Rash PSYCH; Flat affect Assessment & Plan Assessment/Plan (1) Metabolic encephalopathy: (2) Acute on chronic respiratory failure with hypoxia and hypercapnia: (3) Hyperglycemia: (4) Lower extremity edema: PLAN: Plan Patient is a 72-year-old lady resident is an F was found unresponsive and hypoxic. An assessment of acute on chronic hypoxic and hypercapnic respiratory failure made patient intubated in the emergency department and subsequently transferred to the intensive care unit 1. Acute on chronic hypoxic respiratory failure ? Secondary to combination of pneumonia and possible CHF ? 02/19/2023 patient patient remains on the vent. Weaning deferred to pulmonary medicine 2. Suspected pneumonia with MDR's ? Admitted to the intensive care unit patient presented in respiratory failure currently on broad-spectrum antibiotic therapy with Zosyn and vancomycin cultures sent we will follow-up on result 3. Acute congestive heart failure with reduced ejection fraction ? Patient did receive Lasix. Echo ordered for EF assess ?02/19/2023; 2D echo did show Severely dilated left ventricle. Severe global left ventricular systolic dysfunction.The left ventricular ejection fraction is 10 %.Mild global right ventricular systolic dysfunction.Large left pleural effusion. Consult subsequently placed to cardiology 4. Acute metabolic encephalopathy ? Secondary to CO2 narcosis. Patient level of sensorium improving 5. Diabetes mellitus type II -patient's oral hypoglycemics held. Placed on long acting insulin, Accu-Cheks a.c. and at bedtime and covered with sliding scale insulin 6. Anemia - Secondary to chronic disorder monitoring H&H and transfuse if patient becomes symptomatic or hemoglobin falls below 7 ? 02/19/2023; patient hemoglobin down to 7.5 7. Diabetic polyneuropathy ? Patient is on gabapentin held 8. Essential hypertension ? Antihypertensives held 9. GERD ? Patient is on PPI 10. Chronic thrombocytopenia ? Monitoring with daily platelet levels 11. Dyslipidemia -Patient is on statin therapy, continued at home dose 12. Cervical spine fracture of sixth and seventh cervical vertebrae. Appears to be stable; reason she was in a nursing facility at this time. PT/OT consultation 13. Class I obesity with BMI of 33 ? Complicating care 14. Obstructive sleep apnea ? PAP therapy at bedtime 14. DVT prophylaxis -Lovenox daily 40 mg 15.1.3 cm asymmetric density in the anterior left breast. ?Patient to undergo follow-up with diagnostic mammography as outpatient 16. Large left-sided pleural effusion ? Patient to undergo thoracocentesis by interventional radiology Time spent in the patient's overall evaluation,decision-making process, review of diagnostic data, adjustment of management, discussion with other providers, nursing nursing and ancillary staff involved in patient's care documentation, 55 Minutes Charges/Coding Visit Charges Inpatient E&M: 87[address] [facility] L3
[2023-02-19] MEDS: Potassium Chloride Oral Soln 20 MEQ/15 ML UDC 60 MEQ GT (08:17)
[2023-02-19] MEDS: Chlorhexidine 15 ML PO ×2 (09:53→22:16)
[2023-02-19] MEDS: Folic Acid 1 MG Tablet PO (09:57)
--- NOTE | 2023-02-19 10:47 | PCM.PN.INT ---
Assessment & Plan Assessment/Plan (1) Cardiomyopathy: PLAN: Based on the patient's clinical course, lab findings including no active infection, and the fact that she has failed multiple weaning trials due to weakness, which in turn is likely due to her ejection fraction of 10%, I think that it is likely that her initial presentation was probably due to bibasilar lung atelectasis due to weakness which she could not compensate for and developed respiratory failure. Her prognosis is guarded unless her ejection fraction improves. Cardiology consultation is appreciated, and Dr. Hamm is planning the following - Milrinone drip - Small dose lisinopril 2.5 mg daily (she was previously on losartan 100 mg daily) -Lopressor IV will be held in the interest of avoiding hypotension after starting milrinone and lisinopril. She is chronically on 50 mg metoprolol succinate daily, this will be cautiously restarted later. - Lasix 10 mg every 8 IV added; if her blood pressure tolerates this, the dose will be increased cautiously. - CT scan and chest ultrasound did not show a large left pleural effusion. Therefore no attempt at thoracentesis will be done. Management will be to treat the underlying CHF. - No acute ischemia. - The patient was told about her poor prognosis and the possible need to remain on a ventilator possibly with a tracheostomy for some time. She does want to continue aggressive care. (2) Acute on chronic respiratory failure with hypoxia and hypercapnia: PLAN: On mechanical ventilation. Patient vacillates between hyper and hypoventilation on fairly low vent settings, and has not tolerated weaning trials (PS12/PEEP5) due fatigue and hypoventilation.apnea, RSBI>100. - treat atelectasis with increased PEEP - diuresis - treat low EF with milrinone and DARIUSZ per Dr. Gonzalez - maintain PaO2 >65 and SpO2 >95% to avoid hypoxic cardiac stress - routine vent bundle; suction, cough, turn, chlorhexidine, position q2h, will hold SBT today, continue SAT. - maintain phosphate in normal range (was 3.6 today - avoid large carbohydrate loads - may need trache eventually if she continues failure to wean guarded prognosis (3) Anemia: PLAN: Hemoglobin has fallen from 10-7.4 during this admission with no overt blood loss, likely due to hemodilution. Patient has known iron deficiency anemia, her baseline hemoglobin is usually 8.5-8.9.. - iron supplements - monitor for further hemoglobin drop - PPI prophylaxis. (4) Congestive heart failure (CHF): PLAN: BNP was mildly elevated this admission at 132. - Plan as above, for cardiomyopathy (5) Pneumonia: PLAN: She remains on Zosyn and Vanco for presumed bibasilar pneumonia which may actually be atelectasis. Her white count is normal. No fevers. - PEEP was increased for atelectasis today. - Follow-up chest x-ray (6) Lower extremity edema: PLAN: gentle diuresis with lasix 10 mg q8h IV; increase dose if BP allows. - follow electrolytes. (7) Hyperglycemia: PLAN: good control at this time - monitor and adjust insulin after starting tube feeds today. (8) Lung nodules: PLAN: INCIDENTAL FINDINGS ON CHEST CT TO BE FOLLOWED UP IN 3 MONTHS: 1.3 cm L anterior breast density 4mm RUL nodule 2.5 and 1.6 cm L adrenal nodules Routine radiographic followup recommended. (9) On mechanically assisted ventilation: PLAN: as per #2 above PLAN: Plan Critical care time spent with patient at bedside, review of documentation, lab results, radiology and other test results, discussion with colleagues and ancillary staff, clinical management of patient, and updating family if applicable, was 90 minutes. This time does not include any procedures, if performed. [place] [address], [address]. Subjective Subjective Subjective patient is mildly sedated on mechanical ventilation, no complaints of chest pain, other pain, and nodded yes emphatically when asked if she wants to have everything done including tracheostomy and resuscitation if needed. No shortness of breath on the ventilator. She was told that her heart function was very weak, and that it may be difficult to get her off the ventilator, that she may eventually need a tracheostomy and agreed. It is noted that she has a C6-7 fracture with a plan for spontaneous healing, so would need extremely cautious manipulation of the head and neck if any procedure was necessary. Objective Data Objective Data Cough, scant production. Overnight information reviewed with nursing staff. RASS is -10, she has 2 peripheral IVs, Tmax 99.1, Echocardiogram is below showed left ventricular ejection fraction of 10% with global hypokinesis, normal RV with mild RV dysfunction although the echocardiogram indicated a large left pleural effusion, invasive radiology did not find that. Phosphorus is repleted, electrolytes unremarkable glucose 162, case discussed with Dr. Gonzalez Vital Signs: Vital Signs Temp Pulse Resp BP Pulse Ox O2 Del Method FiO2 99.4 F H 83 20 H 105/66 96 Mechanical Ventilator 40 02/19/23 10:00 02/19/23 10:00 02/19/23 10:00 02/19/23 10:00 02/19/23 10:00 02/19/23 10:00 02/19/23 10:00 Oxygen Delivery Method Mechanical Ventilator settings tidal volume 325, rate 16 (decreased to 12) PEEP of 7 FiO2 40%. ABG on a rate of 16 was 7.55 PCO2 48 PO2 81 8 inspiratory pressure decreased to less than 31 tidal volume decreased from 350 to 325 cc. Weight: 202 lb 9.677 oz Body Mass Index (BMI) 33.7 Respiratory weaning assessment: The patient continues to hypoventilate when placed on pressure support ventilation, she was on pressure support wean 10/18 yesterday afternoon, but hypoventilated. In the late evening, the staff noted hypoventilation with tidal volumes in the 100 to 200 cc range; she was placed back on the ventilator overnight. Due to her low cardiac output, we did not restart a weaning trial today pending further cardiac status improvement. Intake & Output: Intake and Output for Last 24 Hours 02/17/23 02/18/23 02/19/23 23:59 23:59 23:59 Intake Total 2104.9633 / 2106.6633 391.62 / 391.62 Output Total 3250 / 3400 550 / 550 Balance -1145.0367 / -1293.3367 -158.38 / -158.38 Tube feeds to start today. Lab / Micro Data Result Diagrams: 02/19/23 03:55 02/19/23 03:55 Labs: Laboratory Results - last 24 hr 02/19/23 03:55: WBC 4.8, RBC 2.69 L, Hgb 7.5 L, Hct 25.5 L, MCV 94.8, MCH 27.9, MCHC 29.4 L D, RDW Std Deviation 54.0 H, RDW Coeff of Amanda 15.8 H, Plt Count 104 L, MPV 9.0, Immature Gran % (Auto) 0.400, Neut % (Auto) 79.0 H, Lymph % (Auto) 13.9 L, [place] % (Auto) 6.5, Eos % (Auto) 0.2, Baso % (Auto) 0.0, Absolute Neuts (auto) 3.8, Absolute Lymphs (auto) 0.66 L, Nucleated RBC % 0 02/19/23 03:55: Sodium 148 H, Potassium 3.0 L, Chloride 104, Carbon Dioxide 41.0 H, Anion Gap 3 L, BUN 29 H, Creatinine 0.80, Estim Creat Clear Calc 56.36, Est GFR (MDRD) Af Amer 91, Est GFR (MDRD) Non-Af 75, BUN/Creatinine Ratio 36.4 H, Glucose 162 H, Calcium 7.9 L, Phosphorus 3.6, Magnesium 2.0, Total Bilirubin 0.60, AST 25, ALT 22, Alkaline Phosphatase 69, Total Protein 5.9 L, Albumin 2.3 L, Globulin 3.6, Albumin/Globulin Ratio 0.6 L Micro: Microbiology 02/18/23 00:35 Sputum, Induced/Lukens Gram Stain - Final 02/18/23 00:35 Sputum, Induced/Lukens Respiratory Culture - Preliminary Appears to be normal respiratory jie. Further studies to follow. 02/17/23 22:33 Urine Catheter - Barnes Legionella Antigen - Final 02/17/23 22:33 Urine Catheter - Catheter Streptococcus pneumoniae Antigen (M - Final 02/17/23 22:35 Nasal Secretion SARS-CoV-2 & FLU Antigen (Rapid) - Final Respiratory PCR canceled, urine culture reordered. ABG Data ABG results: ABG 02/18/23 02/19/23 17:16 04:19 Specimen Type ART ART Sample Site R RADIAL L Radial pH 7.54 H 7.55 H Bicarbonate Actual 50.4 H 42.3 H Total CO2 > 50 44 Base Excess 28 H 20 H O2 Saturation 93 L 97 O2 % 35 40 ABG pCO2 59.3 H 48.2 H ABG pO2 62 L 81 Jovon Test P N/A Respiration Rate 16 O2 Delivery Device Adult Vent Vent Mode PS AC Tidal Volume 325 POC PEEP 5 7 POC Pressure Suppt 14 Blood Gas Notified Whom Blood Gas Notified Time 1716 repeat ordered at 1500 today. On settings of tidal volume 325 respiratory rate 12 FiO2 titrated to saturation 95% or greater, PEEP of 7. Radiography Diagnostic Testing: Radiology Impression Echocardiogram 02/18/23 08:21 Interpretation Summary The study was technically difficult. Severely dilated left ventricle. Severe global left ventricular systolic dysfunction. The left ventricular ejection fraction is 10 %. Mild global right ventricular systolic dysfunction. Large left pleural effusion. Ordering Physician: Hernando Padron Performed By: Bhupinder Rendon RCS [note: chest ultrasound and CT chest did NOT show a large left pleural effusion. -lb] CT/Chest without Contrast IMPRESSION: 1. Bilateral lower lobe consolidation consistent with pneumonia. 2. Small bilateral pleural effusions. 3. Lingular atelectasis versus infiltrate. 4. 4 mm right upper lobe pulmonary nodule. Per Fleischner criteria, if the patient has increased risk factors for lung cancer, recommend follow-up CT of the chest in 12 months. Otherwise no follow-up is recommended. 5. 2.5 cm and 1.6 cm left adrenal gland nodules with indeterminate attenuation values. Per ACR White Paper, recommend follow-up with nonemergent adrenal CT. 6. Cardiomegaly. 7. 1.3 cm asymmetric density in the anterior left breast. Consider follow-up with diagnostic mammography. Electronically Signed: Basim Leija DO at 2:02 EDT Chest Ultrasound 02/18/23 12:16 IMPRESSION: No significant effusions are seen. Bibasilar pulmonary infiltrates. Electronically Signed: Thomas Ahumada MD at 14:45 EDT , Rhythm Strip Rhythm Strip: Sinus Rhythm Rate: 95 Ectopy: None Physical Exam Narrative Well-developed obese, awake alert no acute distress. HEENT exam with endotracheal tube in good position, the patient with a good cough, able to raise scant creamy secretions of mild quantity. No hemoptysis. Chest has diminished breath sounds bilaterally with no wheezes rales or rhonchi. Heart normal S1-S2 with no murmurs rubs or gallop Abdomen is soft, nontender, no organomegaly or mass Extremities have no clubbing or cyanosis. There is 4+ pitting edema. Skin is pale, edematous, cool and dry. Neuro is nonfocal but diffusely weak.
--- NOTE | 2023-02-19 11:46 | CON.PCM.CA_ITS ---
Assessment & Plan Assessment/Plan (1) Respiratory disorder with ventilator dependence: PLAN: Combination of congestive heart failure and pneumonia. Being treated with antibiotics. Will start on diuretics. Patient failed trial of weaning of the ventilator. Will start on low-dose milrinone (2) Congestive heart failure (CHF): PLAN: See #1 above. Start on low-dose milrinone. Diuretics. (3) Cardiomyopathy: PLAN: Start low-dose DARIUSZ inhibitors. (4) Pneumonia: PLAN: As per critical care/internal medicine (5) Anemia: PLAN: Drop in hemoglobin noted. Follow as per critical care. HPI Consult Data Date of Consult: 02/19/23 HPI Narrative Reason for Consultation: Cardiomyopathy HPI Narrative: The patient presented to the emergency room with complaints of shortness of breath. She was noted to be markedly hypoxic. Subsequently she was intubated and mechanical ventilation was started. Initial concern was pneumonia. She has had an echocardiogram done yesterday which showed severely dilated left ventricle with an ejection fraction of 10%. Patient is presently intubated and unable to provide any history. [facility] Medical History (Updated 02/19/23 @ 11:[address] 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 Chronic respiratory failure with hypoxia COPD (chronic obstructive pulmonary disease) Dysphagia Essential hypertension GERD (gastroesophageal reflux disease) History of falling Insomnia, unspecified Iron deficiency anemia Muscle weakness (generalized) Myocardial infarction Obstructive sleep apnea Other displaced fracture of seventh cervical vertebra, subsequent encounter for fracture with routine healing Other displaced fracture of sixth cervical vertebra, subsequent encounter for fracture with routine healing Other lack of coordination Other pancytopenia Personal history of malignant neoplasm of breast Personal history of nicotine dependence Pneumonia Primary osteoarthritis, left shoulder Primary osteoarthritis, right shoulder Pure hypercholesterolemia Respiratory failure with hypoxia Thrombocytopenia Type 2 diabetes mellitus with diabetic neuropathy Unspecified abnormalities of gait and mobility Urinary incontinence Venous insufficiency Venous insufficiency (chronic) (peripheral) Vitamin B12 deficiency Home Medications gabapentin 300 mg capsule 300 mg PO TID Check with primary doctor 11/24/21 [History Last Taken Unknown] losartan 100 mg tablet 100 mg PO DAILY Check with primary doctor 11/24/21 [History Last Taken Unknown] metoprolol succinate 50 mg tablet,extended release 24 hr 50 PO DAILY Check with primary doctor 11/24/21 [History Last Taken Unknown] nystatin 100,000 unit/gram topical cream 1 applic topical BID Check with primary doctor 11/24/21 [History Last Taken Unknown] omeprazole 20 mg capsule,delayed release 20 mg PO DAILY Check with primary doctor 11/24/21 [History Last Taken Unknown] simvastatin 10 mg tablet 10 mg PO QHS Check with primary doctor 11/24/21 [History Last Taken Unknown] bisacodyl 10 mg rectal suppository 10 mg VT DAILY PRN 11/11/22 [History Last Taken Unknown] cranberry 400 mg capsule 400 mg PO DAILY 11/11/22 [History Last Taken Unknown] cyanocobalamin (vitamin B-12) 1,000 mcg capsule 1,000 mcg PO DAILY 11/11/22 [History Last Taken Unknown] docusate sodium 100 mg capsule 100 mg PO DAILY 11/11/22 [History Last Taken Unknown] ferrous sulfate 200 mg (40 mg iron) tablet PO 11/11/22 [History Last Taken Unknown] folic acid 1 mg tablet 1 mg PO DAILY 11/11/22 [History Last Taken Unknown] glimepiride 1 mg tablet (Amaryl) 1 mg PO DAILY 11/11/22 [History Last Taken Unknown] glucagon 1 mg injection kit mg IM 11/11/22 [History Last Taken Unknown] oxycodone 5 mg capsule 5 mg PO Q6H PRN 11/11/22 [History Last Taken Unknown] Allergy/AdvReac Type Severity Reaction Status Date / Time cyclobenzaprine Allergy Other Verified 02/17/23 22:35 [From Flexeril] tizanidine [From Zanaflex] Allergy Other Verified 02/17/23 22:35 Family History Sister Breast cancer Grandmother Diabetes Surgical History History of lumpectomy of left breast Hx of cervical spine surgery Hx of cholecystectomy Social History (Updated 02/18/23 @ 00:[address] Rebecca Resendiz DO) housing: snf Smoking Status: Former smoker alcohol intake: never substance use type: does not use Physical Exam Narrative Intubated. Awake. No apparent distress. Heart sounds 1 and 2 are noted. Chest decreased air entry at bases. Abdomen soft. 3+ bilateral ankle edema noted. Risk Stratification Risk Stratification Applicable: No Objective Data Vital Signs: Vital Signs Temp Pulse Resp BP Pulse Ox O2 Del Method FiO2 99.4 F H 83 20 H 105/66 96 Mechanical Ventilator 40 02/19/23 10:00 02/19/23 10:00 02/19/23 10:00 02/19/23 10:00 02/19/23 10:00 02/19/23 10:00 02/19/23 10:00 Oxygen Delivery Method Mechanical Ventilator Weight: 202 lb 9.677 oz Body Mass Index (BMI) 33.7 Intake & Output: Intake and Output for Last 24 Hours 02/17/23 02/18/23 02/19/23 23:59 23:59 23:59 Intake Total 2104.9633 / 2106.6633 501.62 / 501.62 Output Total 3250 / 3400 550 / 550 Balance -1145.0367 / -1293.3367 -48.38 / -48.38 Lab / Micro Data Result Diagrams: 02/19/23 03:55 02/19/23 03:55 Labs: Laboratory Results - last 24 hr 02/19/23 03:55: WBC 4.8, RBC 2.69 L, Hgb 7.5 L, Hct 25.5 L, MCV 94.8, MCH 27.9, MCHC 29.4 L D, RDW Std Deviation 54.0 H, RDW Coeff of Amanda 15.8 H, Plt Count 104 L, MPV 9.0, Immature Gran % (Auto) 0.400, Neut % (Auto) 79.0 H, Lymph % (Auto) 13.9 L, [place] % (Auto) 6.5, Eos % (Auto) 0.2, Baso % (Auto) 0.0, Absolute Neuts (auto) 3.8, Absolute Lymphs (auto) 0.66 L, Nucleated RBC % 0 02/19/23 03:55: Sodium 148 H, Potassium 3.0 L, Chloride 104, Carbon Dioxide 41.0 H, Anion Gap 3 L, BUN 29 H, Creatinine 0.80, Estim Creat Clear Calc 56.36, Est GFR (MDRD) Af Amer 91, Est GFR (MDRD) Non-Af 75, BUN/Creatinine Ratio 36.4 H, Glucose 162 H, Calcium 7.9 L, Phosphorus 3.6, Magnesium 2.0, Total Bilirubin 0.60, AST 25, ALT 22, Alkaline Phosphatase 69, Total Protein 5.9 L, Albumin 2.3 L, Globulin 3.6, Albumin/Globulin Ratio 0.6 L Micro: Microbiology 02/18/23 00:35 Sputum, Induced/Lukens Gram Stain - Final 02/18/23 00:35 Sputum, Induced/Lukens Respiratory Culture - Preliminary Appears to be normal respiratory jie. Further studies to follow. ABG Data ABG results: ABG 02/18/23 02/19/23 17:16 04:19 Specimen Type ART ART Sample Site R RADIAL L Radial pH 7.54 H 7.55 H Bicarbonate Actual 50.4 H 42.3 H Total CO2 > 50 44 Base Excess 28 H 20 H O2 Saturation 93 L 97 O2 % 35 40 ABG pCO2 59.3 H 48.2 H ABG pO2 62 L 81 Jovon Test P N/A Respiration Rate 16 O2 Delivery Device Adult Vent Vent Mode PS AC Tidal Volume 325 POC PEEP 5 7 POC Pressure Suppt 14 Blood Gas Notified Whom Blood Gas Notified Time 1716 Rhythm Strip Rhythm Strip: Sinus Rhythm Rate: 95 Ectopy: None Cardiology Labs/Tests 02/18/23 17:16: pH 7.54 H, Bicarbonate Actual 50.4 H, Base Excess 28 H, O2 Saturation 93 L, ABG pCO2 59.3 H, ABG pO2 62 L, Jovon Test P 02/19/23 03:55: WBC 4.8, RBC 2.69 L, Hgb 7.5 L, Hct 25.5 L, MCV 94.8, MCH 27.9, MCHC 29.4 L D, Plt Count 104 L, MPV 9.0, Immature Gran % (Auto) 0.400, Neut % (Auto) 79.0 H, Lymph % (Auto) 13.9 L, [place] % (Auto) 6.5, Eos % (Auto) 0.2, Baso % (Auto) 0.0, Absolute Neuts (auto) 3.8, Nucleated RBC % 0 02/19/23 03:55: Sodium 148 H, Potassium 3.0 L, Chloride 104, Carbon Dioxide 41.0 H, Anion Gap 3 L, BUN 29 H, Creatinine 0.80, Est GFR (MDRD) Af Amer 91, Est GFR (MDRD) Non-Af 75, BUN/Creatinine Ratio 36.4 H, Glucose 162 H, Calcium 7.9 L, Phosphorus 3.6, Magnesium 2.0, Total Bilirubin 0.60 02/19/23 04:19: pH 7.55 H, Bicarbonate Actual 42.3 H, Base Excess 20 H, O2 Saturation 97, ABG pCO2 48.2 H, ABG pO2 81, Jovon Test N/A Rhythm: EKG:. ECHO: Stress Test: Cardiac Cath: PCI: CT Surgery: Holter monitor: EPS: PPM: CXR: Chest CT Scan: Radiography Diagnostic Testing: Radiology Impression Echocardiogram 02/18/23 08:21 Interpretation Summary The study was technically difficult. Severely dilated left ventricle. Severe global left ventricular systolic dysfunction. The left ventricular ejection fraction is 10 %. Mild global right ventricular systolic dysfunction. Large left pleural effusion. Ordering Physician: Hernando Padron Performed By: Bhupinder Rendon RCS Chest Ultrasound 02/18/23 12:16 IMPRESSION: No significant effusions are seen. Bibasilar pulmonary infiltrates. Electronically Signed: Thomas Ahumada MD at 14:45 EDT ,
[2023-02-19] MEDS: Vital High Protein 1,000 ML 15 ML GT (12:47)
[2023-02-19] MEDS: MILRINONE 20 MG/100 ML 6.9 MG IV (13:20)
--- NOTE | 2023-02-19 13:55 | RAD_ITS ---
INDICATION: vent, atelectasis, no effusion on US/CT EXAMINATION/TECHNIQUE: X-RAY - XR Chest 1 View COMPARISON: 02/17/2023. FINDINGS: LINES/DEVICES: Nasogastric tube again extends below the left hemidiaphragm. Endotracheal tube tip projects 7.95 cm above the judith. LUNGS: Moderate lingular and left lower lobe infiltrate stable. Small right lower lobe infiltrate stable. MEDIASTINUM AND CARDIOVASCULAR STRUCTURES: Mild cardiomegaly. BONES AND SOFT TISSUES: Unremarkable. Stable exam. RAD/Chest 1 View IMPRESSION: Nasogastric tube and endotracheal tube appear properly positioned. Bilateral infiltrates unchanged. Mild cardiomegaly. Electronically Signed: Jasbir Stanley MD, JEREMIE at 14:39 EDT ,
[2023-02-19] MEDS: Furosemide 20 MG/2 ML VIAL 10 MG IV ×2 (14:46→22:09)
[2023-02-19] MEDS: Dext 5%-0.45% NS 1,000 ML 30 ML IV (14:47)
[2023-02-19 15:55] LABS: Allen Test Positive; Base Excess 22 mmol/L (-2 to +2); Blood Gas Specimen Type ART; FI02 40; Mode AC; O2 Delivery Device Adult Vent; PEEP 7; PO2 69 mmHG (75-100); RR 12; SITE R Radial; SO2 96 % (95-99); Total Carbon Dioxide 45 mmol/L; Vt 325; pCO2 44.6 mmHg (35-45)
[2023-02-19 16:39] LABS: Vancomycin, Trough Level 17.7 ug/mL (5.0-15.0)
--- NOTE | 2023-02-19 17:11 | PCM.RX.CS ---
Consult Pharmacy has been consulted to manage selected antiobiotic: Vancomycin Type of Consult: Follow-up Prior Doses of Antibiotics Received/Current Regimen: Currently on 1gm iv q12h. Labs: Sodium 148 mmol/L (136-145) H 02/19/23 03:55 Potassium 3.0 mmol/L (3.5-5.1) L 02/19/23 03:55 Chloride 104 mmol/L (98-107) 02/19/23 03:55 Carbon Dioxide 41.0 mmol/L (21.0-32.0) H 02/19/23 03:55 Anion Gap 3 (5-15) L 02/19/23 03:55 BUN 29 mg/dL (7-18) H 02/19/23 03:55 Creatinine 0.80 mg/dL (0.55-1.02) 02/19/23 03:55 Est GFR (MDRD) Af Amer 91 mL/min (>60) 02/19/23 03:55 Est GFR (MDRD) Non-Af 75 mL/min (>60) 02/19/23 03:55 BUN/Creatinine Ratio 36.4 RATIO (10-20) H 02/19/23 03:55 Glucose 162 mg/dL (74-106) H 02/19/23 03:55 Vancomycin Trough 17.7 ug/mL (5.0-15.0) H 02/19/23 16:00 Microbiology: Microbiology 02/18/23 00:35 Sputum, Induced/Lukens Gram Stain - Final 02/18/23 00:35 Sputum, Induced/Lukens Respiratory Culture - Preliminary Appears to be normal respiratory jie. Further studies to follow. 02/17/23 22:33 Urine Catheter - Barnes Legionella Antigen - Final 02/17/23 22:33 Urine Catheter - Catheter Streptococcus pneumoniae Antigen (M - Final 02/17/23 22:35 Nasal Secretion SARS-CoV-2 & FLU Antigen (Rapid) - Final Weight used for dosin.9 kg Estimated Creatinine Clearance: 70 ml/min Goal Trough: 15-20 mcg/mL Pharmacy Plan for Drug Dosing: Trough today 17.7 and in desired goal range of 15-20 mcg/ml. Renal CrCl calculated to be ~70 ml/min using an adjusted body weight of 71kg. Will continue same dose. New trough ordered for before another 4th dose in two days per policy. Pharmacy Service will continue to monitor and adjust dosing as required. Follow-Up Labs: Trough Vancomycin - 4.10.23 @0330 before 0400 dose
[2023-02-19 17:16] LABS: Allen Test Positive; Base Excess 21 mmol/L (-2 to +2); Bicarbonate 43.1 mmol/L (22-26); Blood Gas Specimen Type ART; FI02 40; Mode CPAP/PS; O2 Delivery Device Adult Vent; PEEP 7; PO2 55 mmHG (75-100); PS 12; SITE R Radial; SO2 92 % (95-99); Total Carbon Dioxide 44 mmol/L; pCO2 45.2 mmHg (35-45); pH 7.59 (7.35-7.45)
[2023-02-20] VITALS (38 sets, daily range): BP systolic 86–112; BP diastolic 50–68; PULSE 85–116; RESP 16–27; TEMP 37.6–38.2; O2SAT 92–99; BMI 33.8
[2023-02-20] MEDS: MILRINONE 20 MG/100 ML 6.9 MG IV (02:33)
[2023-02-20] MEDS: Ipratropium/Albuterol Sulfate 3 ML AMPUL.NEB INHALATION ×6 (03:13→22:27)
[2023-02-20] MEDS: Vancomycin IV 1,000 MG/200 ML BAG 200 MG IV ×2 (04:34→16:22)
[2023-02-20 04:41] LABS: Absolute Lymphocyte Count 0.64 X10^3/uL (0.83-4.51); Absolute Neutrophil Count 4.5 X10^3/uL (2.0-7.7); Basophil# 0.01 X10^3/uL; Basophil% 0.2 % (0-1); Eosinophil# 0.01 X10^3/uL; Eosinophils% 0.2 % (0-5); Hematocrit 26.3 % (37-47); Hemoglobin 7.6 g/dL (12.0-15.0); Lymphocyte # 0.64 X10^3/ul (0.83-4.51); Lymphocyte % 11.6 % (19-41); Mean Corp Hgb Conc 28.9 g/dL (32-36); Mean Corpuscular Hgb 27.4 pg (27.0-32.0); Mean Corpuscular Volume 94.9 fL (81-99); Mean Platelet Vol. 9.5 fl (6.2-12.0); Monocyte# 0.35 X10^3/uL; Monocyte% 6.4 % (0-10); NRBC Flagged by Analyzer 0 % (0-5); Neutrophil # 4.45 X10^3/uL (2.7-7.7); Neutrophil % 80.9 % (47-70); Platelet Count 109 K/mm3 (150-450); RBC Distribution Width CV 15.9 % (11.6-14.6); RBC Distribution Width SD 55.1 fl (35.1-43.9); Red Blood Count 2.77 M/mm3 (4.2-5.4); White Blood Count 5.5 K/mm3 (4.4-11.0)
[2023-02-20 05:06] LABS: ALB/GLOB Ratio 0.7 RATIO (0.9-2.4); AST(SGOT) 24 U/L (15-37); Alanine Aminotransfer ALT/SGPT 24 U/L (13-56); Albumin, Serum 2.3 g/dL (3.2-5.0); Alkaline Phosphatase 68 U/L (45-117); Anion Gap 0 (5-15); BUN 20 mg/dL (7-18); Chloride 105 mmol/L (98-107); EST Glomerular Filtration Rate 75 mL/min (>60); Est Glom Filt Rate - Afr Amer 90 mL/min (>60); Estimated Creatinine Clearance 56.36 ml/min; Globulin 3.5 g/dL (2.2-4.2); Glucose 189 mg/dL (74-106); Potassium 3.1 mmol/L (3.5-5.1); Protein, Total 5.8 g/dL (6.4-8.2); Sodium Level 143 mmol/L (136-145)
[2023-02-20 05:41] LABS: Allen Test Positive; Base Excess 16 mmol/L (-2 to +2); Bicarbonate 38.8 mmol/L (22-26); Blood Gas Specimen Type ART; FI02 50; Mode CPAP/PS; O2 Delivery Device Adult Vent; PEEP 7; PO2 90 mmHG (75-100); PS 15; SITE R Radial; SO2 98 % (95-99); Total Carbon Dioxide 40 mmol/L; pCO2 49.6 mmHg (35-45)
[2023-02-20] MEDS: Furosemide 20 MG/2 ML VIAL 10 MG IV (06:27)
--- NOTE | 2023-02-20 06:28 | RAD_ITS ---
INDICATION: Acute respiratory failure with hypoxemia EXAMINATION/TECHNIQUE: X-RAY - XR Chest 1 View COMPARISON: February 19, 2023. FINDINGS: LINES/DEVICES: Enteric tube extends subdiaphragmatic off the inferior study margin. . Endotracheal tube 7.1 cm above the judith at the level the clavicles. LUNGS: Persistent patchy opacification of the right lung base. Persistent left retrocardiac opacity with air bronchograms and small layering left effusion. No pneumothorax. MEDIASTINUM AND CARDIOVASCULAR STRUCTURES: Mild cardiomegaly. BONES AND SOFT TISSUES: Cervical fixation hardware noted.. RAD/Chest 1 View (Portable) IMPRESSION: No significant interval change from prior exam. Endotracheal tube 7.1 as above the judith at the level of clavicles. Electronically Signed: Gage Duron MD at 6:54 EDT ,
[2023-02-20] MEDS: Potassium Chloride Oral Soln 20 MEQ/15 ML UDC 60 MEQ GT (06:39)
--- NOTE | 2023-02-20 07:12 | PCM.PN.HOSP ---
Reason for Visit Reason for Visit: Diagnoses Anemia, unspecified (02/18/23) Metabolic encephalopathy (02/18/23) Cardiomyopathy, unspecified (02/18/23) Heart failure, unspecified (02/18/23) Pneumonia, unspecified organism (02/18/23) Chronic obstructive pulmonary disease, unspecified (02/18/23) Acute and chronic respiratory failure with hypoxia (02/18/23) Acute and chronic respiratory failure with hypercapnia (02/18/23) Respiratory disorder, unspecified (02/18/23) Localized edema (02/18/23) Hyperglycemia, unspecified (02/18/23) Other nonspecific abnormal finding of lung field (02/18/23) Dependence on respirator [ventilator] status (02/18/23) Subjective Subjective Patient seen remains on the vent currently undergoing weaning trial. Objective Data Objective Data Vital Signs: Vital Signs Temp Pulse Resp BP Pulse Ox O2 Del Method FiO2 100.2 F H 95 23 H 95/54 L 95 Mechanical Ventilator 40 02/20/23 06:00 02/20/23 06:48 02/20/23 06:48 02/20/23 06:00 02/20/23 06:48 02/20/23 06:00 02/20/23 06:00 Oxygen Delivery Method Mechanical Ventilator Weight: 92.1 kg Body Mass Index (BMI) 33.8 Intake & Output: Intake and Output for Last 24 Hours 02/18/23 02/19/23 02/20/23 23:59 23:59 23:59 Intake Total 2104.9633 / 2106.6633 1929.82 / 2036.72 902.49 / 902.49 Output Total 3250 / 3400 1525 / 1825 650 / 650 Balance -1145.0367 / -1293.3367 404.82 / 211.72 252.49 / 252.49 Lab / Micro Data Result Diagrams: 02/20/23 04:35 02/20/23 04:35 Labs: Laboratory Results - last 24 hr 02/19/23 16:00: Vancomycin Trough 17.7 H 02/20/23 04:35: WBC 5.5, RBC 2.77 L, Hgb 7.6 L, Hct 26.3 L, MCV 94.9, MCH 27.4, MCHC 28.9 L, RDW Std Deviation 55.1 H, RDW Coeff of Amanda 15.9 H, Plt Count 109 L, MPV 9.5, Immature Gran % (Auto) 0.700, Neut % (Auto) 80.9 H, Lymph % (Auto) 11.6 L, [place] % (Auto) 6.4, Eos % (Auto) 0.2, Baso % (Auto) 0.2, Absolute Neuts (auto) 4.5, Absolute Lymphs (auto) 0.64 L, Nucleated RBC % 0 02/20/23 04:35: Sodium 143, Potassium 3.1 L, Chloride 105, Carbon Dioxide 38.0 H, Anion Gap 0 L, BUN 20 H, Creatinine 0.80, Estim Creat Clear Calc 56.36, Est GFR (MDRD) Af Amer 90, Est GFR (MDRD) Non-Af 75, BUN/Creatinine Ratio 25.0 H, Glucose 189 H, Calcium 8.0 L, Total Bilirubin 1.00, AST 24, ALT 24, Alkaline Phosphatase 68, Total Protein 5.8 L, Albumin 2.3 L, Globulin 3.5, Albumin/Globulin Ratio 0.7 L Micro: Microbiology 02/18/23 00:35 Sputum, Induced/Lukens Gram Stain - Final 02/18/23 00:35 Sputum, Induced/Lukens Respiratory Culture - Preliminary Appears to be normal respiratory jie. Further studies to follow. 02/17/23 22:33 Urine Catheter - Barnes Legionella Antigen - Final 02/17/23 22:33 Urine Catheter - Catheter Streptococcus pneumoniae Antigen (M - Final 02/17/23 22:35 Nasal Secretion SARS-CoV-2 & FLU Antigen (Rapid) - Final ABG Data ABG results: ABG 02/19/23 02/19/23 02/20/23 15:48 17:12 05:36 Specimen Type ART ART ART Sample Site R Radial R Radial R Radial pH 7.60 H* 7.59 H 7.50 H Bicarbonate Actual 44.0 H 43.1 H 38.8 H Total CO2 45 44 40 Base Excess 22 H 21 H 16 H O2 Saturation 96 92 L 98 O2 % 40 40 50 ABG pCO2 44.6 45.2 H 49.6 H ABG pO2 69 L 55 L 90 Jovon Test Positive Positive Positive Respiration Rate 12 O2 Delivery Device Adult Vent Adult Vent Adult Vent Vent Mode AC CPAP/PS CPAP/PS Tidal Volume 325 POC PEEP 7 7 7 POC Pressure Suppt 12 15 Crit Call To/Read Back Yes Blood Gas Notified Whom BAGGOTT Radiography Diagnostic Testing: Radiology Impression Chest X-Ray 02/19/23 13:55 IMPRESSION: Nasogastric tube and endotracheal tube appear properly positioned. Bilateral infiltrates unchanged. Mild cardiomegaly. Electronically Signed: Jasbir Stanley MD, JEREMIE at 14:39 EDT , Chest X-Ray 02/20/23 06:28 IMPRESSION: No significant interval change from prior exam. Endotracheal tube 7.1 as above the judith at the level of clavicles. Electronically Signed: Gage Duron MD at 6:54 EDT , Rhythm Strip Rhythm Strip: Sinus Rhythm Rate: 95 Ectopy: None Physical Exam Narrative GENERAL: Awake on the vent HEENT: Atraumatic; normocephalic EYES; Anicteric, Normal Conjunctiva NECK; supple, normal thyroid, RESPIRATORY: Diminished to auscultation CARDIOVASCULAR: Regular S1 S2, GI: soft, normoactive bowel sounds, : No Renal angle tenderness; EXTREMITIES: No edema, no clubbing, MUSCULOSKELETAL: no muscle wasting NEURO: Awake; no lateralizing signs. SKIN: No Rash PSYCH; Flat affect Assessment & Plan Assessment/Plan (1) Metabolic encephalopathy: (2) Acute on chronic respiratory failure with hypoxia and hypercapnia: (3) Hyperglycemia: (4) Lower extremity edema: PLAN: Plan Patient is a 72-year-old lady resident is an ECF was found unresponsive and hypoxic. An assessment of acute on chronic hypoxic and hypercapnic respiratory failure made patient intubated in the emergency department and subsequently transferred to the intensive care unit 1. Acute on chronic hypoxic respiratory failure ? Secondary to combination of pneumonia and possible CHF ? 02/19/2023 patient patient remains on the vent. Weaning deferred to pulmonary medicine ? 02/20/2023; patient remains on the vent currently undergoing weaning trial 2. Suspected pneumonia with MDR's ? Admitted to the intensive care unit patient presented in respiratory failure currently on broad-spectrum antibiotic therapy with Zosyn and vancomycin cultures sent we will follow-up on result 3. Acute congestive heart failure with reduced ejection fraction ? Patient did receive Lasix. Echo ordered for EF assess ?02/19/2023; 2D echo did show Severely dilated left ventricle. Severe global left ventricular systolic dysfunction.The left ventricular ejection fraction is 10 %.Mild global right ventricular systolic dysfunction.Large left pleural effusion. Consult subsequently placed to cardiology 4. Acute metabolic encephalopathy ? Secondary to CO2 narcosis. Patient level of sensorium improving 5. Diabetes mellitus type II -patient's oral hypoglycemics held. Placed on long acting insulin, Accu-Cheks a.c. and at bedtime and covered with sliding scale insulin 6. Anemia - Secondary to chronic disorder monitoring H&H and transfuse if patient becomes symptomatic or hemoglobin falls below 7 ? 02/19/2023; patient hemoglobin down to 7.5 7. Diabetic polyneuropathy ? Patient is on gabapentin held 8. Essential hypertension ? Antihypertensives held 9. GERD ? Patient is on PPI 10. Chronic thrombocytopenia ? Monitoring with daily platelet levels 11. Dyslipidemia -Patient is on statin therapy, continued at home dose 12. Cervical spine fracture of sixth and seventh cervical vertebrae. Appears to be stable; reason she was in a nursing facility at this time. PT/OT consultation 13. Class I obesity with BMI of 33 ? Complicating care 14. Obstructive sleep apnea ? PAP therapy at bedtime 14. DVT prophylaxis -Lovenox daily 40 mg 15.1.3 cm asymmetric density in the anterior left breast. ?Patient to undergo follow-up with diagnostic mammography as outpatient 16. Large left-sided pleural effusion ? Patient to undergo thoracocentesis by interventional radiology Time spent in the patient's overall evaluation,decision-making process, review of diagnostic data, adjustment of management, discussion with other providers, nursing nursing and ancillary staff involved in patient's care documentation, 45 Minutes Charges/Coding Visit Charges Inpatient E&M: 94567 Subs Hosp L2
[2023-02-20] MEDS: TITRATION PARAMETER CHANGE 1 EACH IV (07:37)
[2023-02-20] MEDS: CHLORHEXIDINE GLUC 2% CLOTH 1 EACH TOWELETTE TOPICAL (10:00)
--- NOTE | 2023-02-20 10:35 | PN.CARD_ITS ---
Subjective Subjective Remains intubated. Febrile this morning. Objective Data Vital Signs: Vital Signs Temp Pulse Resp BP Pulse Ox O2 Del Method FiO2 100.3 F H 87 16 109/61 96 Mechanical Ventilator 40 02/20/23 07:00 02/20/23 09:50 02/20/23 09:50 02/20/23 07:00 02/20/23 09:50 02/20/23 08:00 02/20/23 08:00 Oxygen Delivery Method Mechanical Ventilator Weight: 203 lb 0.732 oz Body Mass Index (BMI) 33.8 Intake & Output: Intake and Output for Last 24 Hours 02/18/23 02/19/23 02/20/23 23:59 23:59 23:59 Intake Total 2104.9633 / 2106.6633 1929.82 / 2036.72 1004.91 / 1004.91 Output Total 3250 / 3400 1525 / 1825 650 / 650 Balance -1145.0367 / -1293.3367 404.82 / 211.72 354.91 / 354.91 Lab / Micro Data Result Diagrams: 02/20/23 04:35 02/20/23 04:35 Labs: Laboratory Results - last 24 hr 02/19/23 16:00: Vancomycin Trough 17.7 H 02/20/23 04:35: WBC 5.5, RBC 2.77 L, Hgb 7.6 L, Hct 26.3 L, MCV 94.9, MCH 27.4, MCHC 28.9 L, RDW Std Deviation 55.1 H, RDW Coeff of Amanda 15.9 H, Plt Count 109 L, MPV 9.5, Immature Gran % (Auto) 0.700, Neut % (Auto) 80.9 H, Lymph % (Auto) 11.6 L, [place] % (Auto) 6.4, Eos % (Auto) 0.2, Baso % (Auto) 0.2, Absolute Neuts (auto) 4.5, Absolute Lymphs (auto) 0.64 L, Nucleated RBC % 0 02/20/23 04:35: Sodium 143, Potassium 3.1 L, Chloride 105, Carbon Dioxide 38.0 H , Anion Gap 0 L, BUN 20 H, Creatinine 0.80, Estim Creat Clear Calc 56.36, Est GFR (MDRD) Af Amer 90, Est GFR (MDRD) Non-Af 75, BUN/Creatinine Ratio 25.0 H, Glucose 189 H, Calcium 8.0 L, Total Bilirubin 1.00, AST 24, ALT 24, Alkaline Phosphatase 68, Total Protein 5.8 L, Albumin 2.3 L, Globulin 3.5, Albumin/Globulin Ratio 0.7 L Micro: Microbiology 02/19/23 13:30 Urine Catheter - Barnes Urine Culture - Preliminary Culture exhibits no growth. 02/18/23 00:35 Sputum, Induced/Lukens Gram Stain - Final 02/18/23 00:35 Sputum, Induced/Lukens Respiratory Culture - Final ABG Data ABG results: ABG 02/19/23 02/19/23 02/20/23 15:48 17:12 05:36 Specimen Type ART ART ART Sample Site R Radial R Radial R Radial pH 7.60 H* 7.59 H 7.50 H Bicarbonate Actual 44.0 H 43.1 H 38.8 H Total CO2 45 44 40 Base Excess 22 H 21 H 16 H O2 Saturation 96 92 L 98 O2 % 40 40 50 ABG pCO2 44.6 45.2 H 49.6 H ABG pO2 69 L 55 L 90 Jovon Test Positive Positive Positive Respiration Rate 12 O2 Delivery Device Adult Vent Adult Vent Adult Vent Vent Mode AC CPAP/PS CPAP/PS Tidal Volume 325 POC PEEP 7 7 7 POC Pressure Suppt 12 15 Crit Call To/Read Back Yes Blood Gas Notified Whom BAGGOTT Rhythm Strip Rhythm Strip: Sinus Rhythm Rate: 95 Ectopy: None Cardiology Labs/Tests 02/19/23 15:48: pH 7.60 H*, Bicarbonate Actual 44.0 H, Base Excess 22 H, O2 Saturation 96, ABG pCO2 44.6, ABG pO2 69 L, Jovon Test Positive 02/19/23 17:12: pH 7.59 H, Bicarbonate Actual 43.1 H, Base Excess 21 H, O2 Saturation 92 L, ABG pCO2 45.2 H, ABG pO2 55 L, Jovon Test Positive 02/20/23 04:35: WBC 5.5, RBC 2.77 L, Hgb 7.6 L, Hct 26.3 L, MCV 94.9, MCH 27.4, MCHC 28.9 L, Plt Count 109 L, MPV 9.5, Immature Gran % (Auto) 0.700, Neut % (Auto) 80.9 H, Lymph % (Auto) 11.6 L, [place] % (Auto) 6.4, Eos % (Auto) 0.2, Baso % (Auto) 0.2, Absolute Neuts (auto) 4.5, Nucleated RBC % 0 02/20/23 04:35: Sodium 143, Potassium 3.1 L, Chloride 105, Carbon Dioxide 38.0 H , Anion Gap 0 L, BUN 20 H, Creatinine 0.80, Est GFR (MDRD) Af Amer 90, Est GFR (MDRD) Non-Af 75, BUN/Creatinine Ratio 25.0 H, Glucose 189 H, Calcium 8.0 L, Total Bilirubin 1.00 02/20/23 05:36: pH 7.50 H, Bicarbonate Actual 38.8 H, Base Excess 16 H, O2 Saturation 98, ABG pCO2 49.6 H, ABG pO2 90, Jovon Test Positive Rhythm: EKG: ECHO: Stress Test: Cardiac Cath: PCI: CT Surgery: Holter monitor: EPS: PPM: CXR: Chest CT Scan: Radiography Diagnostic Testing: Radiology Impression Chest X-Ray 02/19/23 13:55 IMPRESSION: Nasogastric tube and endotracheal tube appear properly positioned. Bilateral infiltrates unchanged. Mild cardiomegaly. Electronically Signed: Jasbir Stanley MD, JEREMIE at 14:39 EDT , Chest X-Ray 02/20/23 06:28 IMPRESSION: No significant interval change from prior exam. Endotracheal tube 7.1 as above the judith at the level of clavicles. Electronically Signed: Gage Duron MD at 6:54 EDT , Physical Exam Narrative Intubated. Sedated on vent. Heart sounds 1 and 2 are noted. Chest decreased air entry at bases. Abdomen soft. 2+ bilateral ankle edema noted. Assessment & Plan Assessment/Plan (1) Respiratory disorder with ventilator dependence: PLAN: Combination of congestive heart failure and pneumonia. (2) Congestive heart failure (CHF): PLAN: Increase milrinone infusion to 0.375 mcg/kg/min. Continue diuresis. (3) Cardiomyopathy: PLAN: Start low-dose DARIUSZ inhibitors. Continue milrinone infusion (4) Pneumonia: PLAN: As per critical care/internal medicine. Running a fever this morning. Follow as per critical care. (5) Anemia: PLAN: Drop in hemoglobin noted. Follow as per critical care.
[2023-02-20] MEDS: Enoxaparin 40 MG/0.4 ML Syringe SC (10:50)
[2023-02-20] MEDS: Folic Acid 1 MG Tablet PO (10:51)
[2023-02-20] MEDS: Chlorhexidine 15 ML PO ×2 (10:51→20:31)
[2023-02-20] MEDS: Propofol 10MG/Ml 1,000 MG/100 ML Bottle 5.5 MG CONT INF (10:53)
[2023-02-20 11:16] LABS: Allen Test Positive; Base Excess 14 mmol/L (-2 to +2); Bicarbonate 36.8 mmol/L (22-26); Blood Gas Specimen Type ART; FI02 50; Mode AC/PC; O2 Delivery Device Adult Vent; PEEP 7; PO2 87 mmHG (75-100); PS 13; RR 15; SITE R Radial; SO2 98 % (95-99); Total Carbon Dioxide 38 mmol/L; pCO2 42.9 mmHg (35-45); pH 7.54 (7.35-7.45)
[2023-02-20] MEDS: Lisinopril 2.5 MG Tablet PO (11:36)
[2023-02-20 12:20] LABS: CPK Total, Creatine Kinase 26 U/L (26-192); Triglycerides 141 mg/dL
[2023-02-20] MEDS: Insulin Lispro 100 UNIT/ML INSULN.PEN SC ×2 (12:54→19:00)
[2023-02-20 13:56] LABS: Allen Test Positive; Base Excess 13 mmol/L (-2 to +2); Bicarbonate 36.7 mmol/L (22-26); Blood Gas Specimen Type ART; FI02 50; Mode AC/PC; O2 Delivery Device Adult Vent; PEEP 7; PO2 92 mmHG (75-100); PS 11; RR 15; SITE R Radial; SO2 98 % (95-99); Total Carbon Dioxide 38 mmol/L; pCO2 48.2 mmHg (35-45); pH 7.49 (7.35-7.45)
[2023-02-20] MEDS: Furosemide 20 MG/2 ML VIAL IV ×2 (13:57→20:31)
[2023-02-20 14:33] LABS: Anion Gap 3 (5-15); BUN 19 mg/dL (7-18); Calcium,Total 8.1 mg/dL (8.5-10.1); Chloride 106 mmol/L (98-107); Creatinine, Serum 0.86 mg/dL (0.55-1.02); EST Glomerular Filtration Rate 69 mL/min (>60); Est Glom Filt Rate - Afr Amer 83 mL/min (>60); Estimated Creatinine Clearance 52.42 ml/min; Glucose 172 mg/dL (74-106); Potassium 3.2 mmol/L (3.5-5.1); Sodium Level 144 mmol/L (136-145)
[2023-02-20] MEDS: MILRINONE 20 MG/100 ML 10.3 MG IV (15:16)
[2023-02-20 15:41] LABS: Bedside Glucose 160 mg/dL (74-106)
--- NOTE | 2023-02-20 16:34 | PCM.PN.INT ---
Assessment & Plan Assessment/Plan (1) Cardiomyopathy: PLAN: Based on the patient's clinical course, lab findings including no active infection, and the fact that she has failed multiple weaning trials due to weakness, which in turn is likely due to her ejection fraction of 10%, I think that it is likely that her initial presentation was probably due to bibasilar lung atelectasis due to weakness which she could not compensate for and developed respiratory failure. Her prognosis is guarded unless her ejection fraction improves. Cardiology consultation is appreciated, and Dr. Gonzalez is planning the following - Milrinone drip increased to 0.375 mcg/kg/min IV - Lsinopril 2.5 mg daily per cardiology (she was previously on losartan 100 mg daily) - re-start metoprolol cautiously in 1-2 days as pressure tolerates - Lasix 20 mg every 8 IV, adjust for net diuresis goal of 1L/day, follow electrolytes - CT scan and chest ultrasound did not show a large left pleural effusion. Therefore no attempt at thoracentesis will be done. Management will be to treat the underlying CHF. - No acute ischemia. The patient was told about her poor prognosis and the possible need to remain on a ventilator possibly with a tracheostomy for some time. She does want to continue aggressive care. Family meeting yesterday agreed. (2) Acute on chronic respiratory failure with hypoxia and hypercapnia: PLAN: On mechanical ventilation. Pressure control mode started today to limit hyperventilation and avoid high peak pressures >30. - treat atelectasis with 7 cm PEEP - diuresis - cardiology plan above - maintain PaO2 >=65 and SpO2 >=95% to avoid hypoxic cardiac stress (note her SpO2 is higher than and does not agree with SaO2, which is more accurate) - routine vent bundle; suction, cough, turn, chlorhexidine, position q2h, SBT - allow naps and qHS sedation on propofol 10-20 mcg/kg/min, is tolerating vent with precedex drip - maintain phosphate in normal range - avoid large carbohydrate loads, tube feeds to start today 30cc/hr - may need trache eventually if she continues failure to wean -empiric duoneb q4h guarded prognosis (3) Anemia: PLAN: Hemoglobin has fallen from 10-7.4 during this admission with no overt blood loss, likely due to hemodilution. Patient has known iron deficiency anemia, her baseline hemoglobin is usually 8.5-8.9.. - iron supplements - monitor for further hemoglobin drop - PPI prophylaxis. (4) Congestive heart failure (CHF): PLAN: BNP was mildly elevated this admission at 132. - Plan as above, for cardiomyopathy - maintenance D5NS at 30cc/hr - follow lytes (5) Pneumonia: PLAN: She remains on Zosyn and Vanco for presumed bibasilar pneumonia which may actually be atelectasis. Her white count is normal. No fevers. - De-escalate abx in 24-48h if cultures remain negative - Follow-up chest x-ray (6) Lower extremity edema: PLAN: gentle diuresis with lasix 10 mg q8h IV; increase dose if BP allows. - follow electrolytes. (7) Hyperglycemia: PLAN: good control at this time - monitor and adjust insulin after starting tube feeds today. (8) Lung nodules: PLAN: INCIDENTAL FINDINGS ON CHEST CT TO BE FOLLOWED UP IN 3 MONTHS: 1.3 cm L anterior breast density 4mm RUL nodule 2.5 and 1.6 cm L adrenal nodules Routine radiographic followup recommended. (9) On mechanically assisted ventilation: PLAN: as per #2 above PLAN: Plan Routine ICU PPX: PPI, HOB30, chlorhexidine, lovenox, docusate/lactulose DM2 mgmt per primary; glucoses 189 today Critical care time spent with patient at bedside, review of documentation, lab results, radiology and other test results, discussion with colleagues and ancillary staff, clinical management of patient, and updating family if applicable, was 90 minutes. This time does not include any procedures, if performed. [place] [address] Subjective Subjective Intubated and sedated on ventilator, no complaints. Patient had no chest pain, would like to sleep more well on ventilator but currently comfortable on Precedex 0.3 Overnight course reviewed in ICU with staff during interdisciplinary rounds. Stable overnight. Alert and oriented, RASS 0-1 on mechanical ventilation, being suctioned for clear sputum. Having dark formed stools. She was able to stand at the bedside on the ventilator for 15 seconds. At home she is usually in a wheelchair. Objective Data Objective Data Vital Signs: Vital Signs Temp Pulse Resp BP Pulse Ox O2 Del Method FiO2 99.9 F H 88 20 H 86/55 L 98 Mechanical Ventilator 50 02/20/23 13:00 02/20/23 15:53 02/20/23 15:53 02/20/23 13:00 02/20/23 15:53 02/20/23 13:00 02/20/23 13:00 Oxygen Delivery Method Mechanical Ventilator settings are pressure control of 11, PEEP 7, respiratory rate 15, FiO2 50%. ABG on the settings was 7.49/48/92. Endotracheal tube is 7.5 mm ID, 22 cm at the upper teeth. Weight: 203 lb 0.732 oz Body Mass Index (BMI) 33.8 Intake & Output: Intake and Output for Last 24 Hours 02/18/23 02/19/23 02/20/23 23:59 23:59 23:59 Intake Total 2104.9633 / 2106.6633 1929.82 / 2036.72 1417.04 / 1417.04 Output Total 3250 / 3400 1525 / 1825 1225 / 1225 Balance -1145.0367 / -1293.3367 404.82 / 211.72 192.04 / 192.04 I's and O's net 400 cc positive. Lab / Micro Data Attestation: I reviewed the patient's lab results. Result Diagrams: 02/20/23 04:35 02/20/23 14:05 Labs: Laboratory Results - last 24 hr 02/19/23 16:00: Vancomycin Trough 17.7 H 02/20/23 04:35: WBC 5.5, RBC 2.77 L, Hgb 7.6 L, Hct 26.3 L, MCV 94.9, MCH 27.4, MCHC 28.9 L, RDW Std Deviation 55.1 H, RDW Coeff of Amanda 15.9 H, Plt Count 109 L, MPV 9.5, Immature Gran % (Auto) 0.700, Neut % (Auto) 80.9 H, Lymph % (Auto) 11.6 L, [place] % (Auto) 6.4, Eos % (Auto) 0.2, Baso % (Auto) 0.2, Absolute Neuts (auto) 4.5, Absolute Lymphs (auto) 0.64 L, Nucleated RBC % 0 02/20/23 04:35: Sodium 143, Potassium 3.1 L, Chloride 105, Carbon Dioxide 38.0 H, Anion Gap 0 L, BUN 20 H, Creatinine 0.80, Estim Creat Clear Calc 56.36, Est GFR (MDRD) Af Amer 90, Est GFR (MDRD) Non-Af 75, BUN/Creatinine Ratio 25.0 H, Glucose 189 H, Calcium 8.0 L, Total Bilirubin 1.00, AST 24, ALT 24, Alkaline Phosphatase 68, Total Protein 5.8 L, Albumin 2.3 L, Globulin 3.5, Albumin/Globulin Ratio 0.7 L 02/20/23 11:45: Total Creatine Kinase 26, Triglycerides 141 02/20/23 12:48: POC Glucose 160 H 02/20/23 14:05: Sodium 144, Potassium 3.2 L, Chloride 106, Carbon Dioxide 35.0 H, Anion Gap 3 L, BUN 19 H, Creatinine 0.86, Estim Creat Clear Calc 52.42, Est GFR (MDRD) Af Amer 83, Est GFR (MDRD) Non-Af 69, BUN/Creatinine Ratio 22.0 H, Glucose 172 H, Calcium 8.1 L Micro: Microbiology 02/17/23 22:50 Blood Culture (Wb) - Left Forearm Blood Culture - Preliminary No growth in 48 hours. 02/17/23 22:28 Blood Culture (Wb) - Anticubital Left Blood Culture - Preliminary No growth in 48 hours. 02/19/23 13:30 Urine Catheter - Barnes Urine Culture - Preliminary Culture exhibits no growth. 02/18/23 00:35 Sputum, Induced/Lukens Gram Stain - Final 02/18/23 00:35 Sputum, Induced/Lukens Respiratory Culture - Final 02/17/23 22:33 Urine Catheter - Barnes Legionella Antigen - Final 02/17/23 22:33 Urine Catheter - Catheter Streptococcus pneumoniae Antigen (M - Final 02/17/23 22:35 Nasal Secretion SARS-CoV-2 & FLU Antigen (Rapid) - Final ABG Data ABG results: ABG 02/19/23 02/20/23 02/20/23 17:12 05:36 11:07 Specimen Type ART ART ART Sample Site R Radial R Radial R Radial pH 7.59 H 7.50 H 7.54 H Bicarbonate Actual 43.1 H 38.8 H 36.8 H Total CO2 44 40 38 Base Excess 21 H 16 H 14 H O2 Saturation 92 L 98 98 O2 % 40 50 50 ABG pCO2 45.2 H 49.6 H 42.9 ABG pO2 55 L 90 87 Jovon Test Positive Positive Positive Respiration Rate 15 O2 Delivery Device Adult Vent Adult Vent Adult Vent Vent Mode CPAP/PS CPAP/PS AC/PC POC PEEP 7 7 7 POC Pressure Suppt 12 15 13 02/20/23 13:48 Specimen Type ART Sample Site R Radial pH 7.49 H Bicarbonate Actual 36.7 H Total CO2 38 Base Excess 13 H O2 Saturation 98 O2 % 50 ABG pCO2 48.2 H ABG pO2 92 Jovon Test Positive Respiration Rate 15 O2 Delivery Device Adult Vent Vent Mode AC/PC POC PEEP 7 POC Pressure Suppt 11 note her last blood gas was on pressure control, not pressure support. Her respiratory rate was decreased to 12 after that ABG. Radiography Diagnostic Testing: Radiology Impression Venous Doppler Study 02/18/23 01:42 Interpretation Summary Deep veins of the bilateral lower extremities are patent and compressible segmentally. There is no evidence of bilateral lower extremity deep vein thrombosis. The bilateral great saphenous veins appear patent and compressible segmentally. Ordering Physician: Rebecca Resendiz Referring Physician: Carol Carlisle Performed By: Fabi Delacruz, RDCS, RVT Chest X-Ray 02/20/23 06:28 IMPRESSION: No significant interval change from prior exam. Endotracheal tube 7.1 as above the judith at the level of clavicles. Electronically Signed: Gage Duron MD at 6:54 EDT , Rhythm Strip Rhythm Strip: Sinus Rhythm Rate: 95 Ectopy: None Physical Exam Narrative 10 system exam done. Unchanged from yesterday. Charges/Coding Procedures Hospitalists Procedures: 99709 Critial Care 1st Hr
[2023-02-20 19:25] LABS: Bedside Glucose 166 mg/dL (74-106)
[2023-02-20] MEDS: 0.9% Saline Lock 10 ML Syringe IV (20:32)
[2023-02-20] MEDS: Dext 5%-0.45% NS 1,000 ML 30 ML IV (21:49)
[2023-02-21] VITALS (33 sets, daily range): BP systolic 84–139; BP diastolic 52–79; PULSE 78–122; RESP 16–24; TEMP 36.8–37.6; O2SAT 92–100; BMI 33.3
[2023-02-21] MEDS: Insulin Lispro 100 UNIT/ML INSULN.PEN SC ×2 (00:06→05:20)
[2023-02-21] MEDS: MILRINONE 20 MG/100 ML 10.3 MG IV ×2 (01:11→11:30)
[2023-02-21] MEDS: Propofol 10MG/Ml 1,000 MG/100 ML Bottle 5.5 MG CONT INF (01:11)
[2023-02-21 01:30] LABS: Bedside Glucose 178 mg/dL (74-106)
[2023-02-21 03:34] LABS: Absolute Lymphocyte Count 0.59 X10^3/uL (0.83-4.51); Absolute Neutrophil Count 3.3 X10^3/uL (2.0-7.7); Basophil# 0.01 X10^3/uL; Basophil% 0.2 % (0-1); Eosinophil# 0.03 X10^3/uL; Eosinophils% 0.7 % (0-5); Hematocrit 24.2 % (37-47); Hemoglobin 7.1 g/dL (12.0-15.0); Lymphocyte # 0.59 X10^3/ul (0.83-4.51); Lymphocyte % 14.1 % (19-41); Mean Corp Hgb Conc 29.3 g/dL (32-36); Mean Corpuscular Hgb 27.8 pg (27.0-32.0); Mean Corpuscular Volume 94.9 fL (81-99); Mean Platelet Vol. 9.8 fl (6.2-12.0); Monocyte# 0.22 X10^3/uL; Monocyte% 5.3 % (0-10); NRBC Flagged by Analyzer 0 % (0-5); Neutrophil # 3.29 X10^3/uL (2.7-7.7); POSITIVE DIFFERENTIAL YES; Platelet Count 102 K/mm3 (150-450); RBC Distribution Width CV 15.8 % (11.6-14.6); RBC Distribution Width SD 54.2 fl (35.1-43.9); Red Blood Count 2.55 M/mm3 (4.2-5.4); White Blood Count 4.2 K/mm3 (4.4-11.0)
[2023-02-21 03:35] LABS: Differential Indicated SCAN CRITERIA MET
[2023-02-21] MEDS: Ipratropium/Albuterol Sulfate 3 ML AMPUL.NEB INHALATION ×5 (03:45→19:33)
[2023-02-21 03:52] LABS: ALB/GLOB Ratio 0.6 RATIO (0.9-2.4); AST(SGOT) 21 U/L (15-37); Alanine Aminotransfer ALT/SGPT 24 U/L (13-56); Albumin, Serum 2.2 g/dL (3.2-5.0); Alkaline Phosphatase 66 U/L (45-117); Anion Gap 2 (5-15); BUN 17 mg/dL (7-18); BUN/Creat Ratio 18.3 RATIO (10-20); Calcium,Total 7.9 mg/dL (8.5-10.1); Chloride 107 mmol/L (98-107); Creatinine, Serum 0.93 mg/dL (0.55-1.02); EST Glomerular Filtration Rate 63 mL/min (>60); Est Glom Filt Rate - Afr Amer 76 mL/min (>60); Estimated Creatinine Clearance 48.48 ml/min; Globulin 3.4 g/dL (2.2-4.2); Glucose 190 mg/dL (74-106); Potassium 3.2 mmol/L (3.5-5.1); Protein, Total 5.6 g/dL (6.4-8.2); Sodium Level 145 mmol/L (136-145)
[2023-02-21 03:53] LABS: Vancomycin, Trough Level 25.5 ug/mL (5.0-15.0)
--- NOTE | 2023-02-21 04:06 | PCM.RX.CS ---
Consult Pharmacy has been consulted to manage selected antiobiotic: Vancomycin Type of Consult: Follow-up Labs: Sodium 145 mmol/L (136-145) 02/21/23 03:10 Potassium 3.2 mmol/L (3.5-5.1) L 02/21/23 03:10 Chloride 107 mmol/L (98-107) 02/21/23 03:10 Carbon Dioxide 36.0 mmol/L (21.0-32.0) H 02/21/23 03:10 Anion Gap 2 (5-15) L 02/21/23 03:10 BUN 17 mg/dL (7-18) 02/21/23 03:10 Creatinine 0.93 mg/dL (0.55-1.02) 02/21/23 03:10 Est GFR (MDRD) Af Amer 76 mL/min (>60) 02/21/23 03:10 Est GFR (MDRD) Non-Af 63 mL/min (>60) 02/21/23 03:10 BUN/Creatinine Ratio 18.3 RATIO (10-20) 02/21/23 03:10 Glucose 190 mg/dL (74-106) H 02/21/23 03:10 Vancomycin Trough 25.5 ug/mL (5.0-15.0) H 02/21/23 03:10 Microbiology: Microbiology 02/17/23 22:50 Blood Culture (Wb) - Left Forearm Blood Culture - Preliminary No growth in 48 hours. 02/17/23 22:28 Blood Culture (Wb) - Anticubital Left Blood Culture - Preliminary No growth in 48 hours. 02/19/23 13:30 Urine Catheter - Barnes Urine Culture - Preliminary Culture exhibits no growth. 02/18/23 00:35 Sputum, Induced/Lukens Gram Stain - Final 02/18/23 00:35 Sputum, Induced/Lukens Respiratory Culture - Final 02/17/23 22:33 Urine Catheter - Barnes Legionella Antigen - Final 02/17/23 22:33 Urine Catheter - Catheter Streptococcus pneumoniae Antigen (M - Final 02/17/23 22:35 Nasal Secretion SARS-CoV-2 & FLU Antigen (Rapid) - Final Goal Trough: 15-20 mcg/mL Pharmacy Plan for Drug Dosing: Pharmacy Service will continue to monitor and adjust dosing as required. TROUGH 25.5 @ 11HRS. HOLD CURRENT DOSE AND DRAW RANDOM LEVEL IN 12 HOURS Follow-Up Labs: Trough Vancomycin Labs to be done on [date and time ordered]: 02/21 @ 7892
[2023-02-21 04:07] LABS: Platelet Estimate SLT DEC (ADEQ)
[2023-02-21] MEDS: Furosemide 20 MG/2 ML VIAL IV ×3 (05:20→21:14)
--- NOTE | 2023-02-21 07:07 | PCM.PN.HOSP ---
Reason for Visit Reason for Visit: Diagnoses Anemia, unspecified (02/18/23) Metabolic encephalopathy (02/18/23) Cardiomyopathy, unspecified (02/18/23) Heart failure, unspecified (02/18/23) Pneumonia, unspecified organism (02/18/23) Chronic obstructive pulmonary disease, unspecified (02/18/23) Acute and chronic respiratory failure with hypoxia (02/18/23) Acute and chronic respiratory failure with hypercapnia (02/18/23) Respiratory disorder, unspecified (02/18/23) Localized edema (02/18/23) Hyperglycemia, unspecified (02/18/23) Other nonspecific abnormal finding of lung field (02/18/23) Dependence on respirator [ventilator] status (02/18/23) Subjective Subjective Extubated this a.m., denies cough or problems with her breathing, tired at this time but no other complaints Objective Data Objective Data Vital Signs: Vital Signs Temp Pulse Resp BP Pulse Ox O2 Del Method O2 Flow Rate 98.8 F 88 23 H 96/57 L 98 Mechanical Ventilator 2 02/21/23 04:00 02/21/23 07:00 02/21/23 07:00 02/21/23 07:00 02/21/23 07:00 02/21/23 07:00 02/21/23 01:00 FiO2 50 02/21/23 07:00 Oxygen Flow Rate (L/min) 2 Oxygen Delivery Method Mechanical Ventilator Weight: 90.7 kg Body Mass Index (BMI) 33.3 Intake & Output: Intake and Output for Last 24 Hours 02/19/23 02/20/23 02/21/23 23:59 23:59 23:59 Intake Total 1929.82 / 2036.72 3091.93 / 3238.93 1060.33 / 1060.33 Output Total 1525 / 1825 3125 / 3125 850 / 850 Balance 404.82 / 211.72 -33.07 / 113.93 210.33 / 210.33 Lab / Micro Data Result Diagrams: 02/21/23 03:10 02/21/23 03:10 Labs: Laboratory Results - last 24 hr 02/20/23 11:45: Total Creatine Kinase 26, Triglycerides 141 02/20/23 12:48: POC Glucose 160 H 02/20/23 14:05: Sodium 144, Potassium 3.2 L, Chloride 106, Carbon Dioxide 35.0 H, Anion Gap 3 L, BUN 19 H, Creatinine 0.86, Estim Creat Clear Calc 52.42, Est GFR (MDRD) Af Amer 83, Est GFR (MDRD) Non-Af 69, BUN/Creatinine Ratio 22.0 H, Glucose 172 H, Calcium 8.1 L 02/20/23 18:54: POC Glucose 166 H 02/21/23 00:04: POC Glucose 178 H 02/21/23 03:10: WBC 4.2 L, RBC 2.55 L, Hgb 7.1 L, Hct 24.2 L, MCV 94.9, MCH 27.8, MCHC 29.3 L, RDW Std Deviation 54.2 H, RDW Coeff of Amanda 15.8 H, Plt Count 102 L, MPV 9.8, Immature Gran % (Auto) 0.700, Neut % (Auto) 79.0 H, Lymph % (Auto) 14.1 L, [place] % (Auto) 5.3, Eos % (Auto) 0.7, Baso % (Auto) 0.2, Absolute Neuts (auto) 3.3, Absolute Lymphs (auto) 0.59 L, Nucleated RBC % 0, Differential Comment COMMENT, Diff Path Review March, Platelet Estimate SLT 02/21/23 03:10: Sodium 145, Potassium 3.2 L, Chloride 107, Carbon Dioxide 36.0 H, Anion Gap 2 L, BUN 17, Creatinine 0.93, Estim Creat Clear Calc 48.48, Est GFR (MDRD) Af Amer 76, Est GFR (MDRD) Non-Af 63, BUN/Creatinine Ratio 18.3, Glucose 190 H, Calcium 7.9 L, Total Bilirubin 0.80, AST 21, ALT 24, Alkaline Phosphatase 66, Total Protein 5.6 L, Albumin 2.2 L, Globulin 3.4, Albumin/Globulin Ratio 0.6 L 02/21/23 03:10: Vancomycin Trough 25.5 H Micro: Microbiology 02/17/23 22:50 Blood Culture (Wb) - Left Forearm Blood Culture - Preliminary No growth in 48 hours. 02/17/23 22:28 Blood Culture (Wb) - Anticubital Left Blood Culture - Preliminary No growth in 48 hours. 02/19/23 13:30 Urine Catheter - Barnes Urine Culture - Preliminary Culture exhibits no growth. 02/18/23 00:35 Sputum, Induced/Lukens Gram Stain - Final 02/18/23 00:35 Sputum, Induced/Lukens Respiratory Culture - Final 02/17/23 22:33 Urine Catheter - Barnes Legionella Antigen - Final 02/17/23 22:33 Urine Catheter - Catheter Streptococcus pneumoniae Antigen (M - Final 02/17/23 22:35 Nasal Secretion SARS-CoV-2 & FLU Antigen (Rapid) - Final ABG Data ABG results: ABG 02/20/23 02/20/23 11:07 13:48 Specimen Type ART ART Sample Site R Radial R Radial pH 7.54 H 7.49 H Bicarbonate Actual 36.8 H 36.7 H Total CO2 38 38 Base Excess 14 H 13 H O2 Saturation 98 98 O2 % 50 50 ABG pCO2 42.9 48.2 H ABG pO2 87 92 Jovon Test Positive Positive Respiration Rate 15 15 O2 Delivery Device Adult Vent Adult Vent Vent Mode AC/PC AC/PC POC PEEP 7 7 POC Pressure Suppt 13 11 Radiography Diagnostic Testing: Radiology Impression Venous Doppler Study 02/18/23 01:42 Interpretation Summary Deep veins of the bilateral lower extremities are patent and compressible segmentally. There is no evidence of bilateral lower extremity deep vein thrombosis. The bilateral great saphenous veins appear patent and compressible segmentally. Ordering Physician: Rebecca Resendiz Referring Physician: Carol Carlisle Performed By: Fabi Delacruz, MARC, RVT Rhythm Strip Rhythm Strip: Sinus Rhythm Rate: 95 Ectopy: None Physical Exam Narrative General: Slightly tired but awake and does not fall asleep during conversation HEENT: Atraumatic, normocephalic Eyes: Anicteric, normal conjunctiva, extraocular movements grossly intact Neck: Supple Respiratory: Clear to auscultation bilaterally, normal respiratory effort Cardiovascular: Regular rate and rhythm GI: Soft, nontender, nondistended Extremities: No edema Musculoskeletal: Moving all extremities Neuro: No overt focal neurological deficits Skin: No rashes appreciated Psych: Cooperative Assessment & Plan Assessment/Plan (1) Cardiomyopathy: (2) Acute on chronic respiratory failure with hypoxia and hypercapnia: (3) Anemia: (4) Congestive heart failure (CHF): (5) Pneumonia: (6) Lower extremity edema: (7) Hyperglycemia: (8) Lung nodules: PLAN: Plan #Acute on chronic hypoxic hypercapnic resp failure 2/2 PNA and acute HFrEF -Intubated on arrival -Improved, extubated 02/21/23 -Remains on vancomycin and Zosyn -Awaiting cultures -On scheduled nebs #Acute HFrEF -Echo w/ EF 10% with severely dilated left ventricle and severe global left ventricular systolic dysfunction. -Cardiology following -Remains on milrinone. Date this evening, management per cardiology -Continuing diuresis #Type 2 diabetes mellitus -Glucose checks and sliding scale insulin -Home oral hypoglycemics held #Chronic anemia/thrombocytopenia -Transfuse if hemoglobin falls below 7 -Hemoglobin has been downtrending but no overt bleeding noted, possibly delusional given her IV fluids -We will check FOBT #Cervical spine fracture of sixth and seventh cervical vertebrae -Pt/OT -Was reason for her nursing facility placement #1.3 cm asymmetric density in the anterior left breast -Needs oupt diagnostic mammogram #Incidental lung nodules -Patient will need a follow-up CT scan in 3 months to evaluate for incidental nodules #DVT ppx: Lovenox subcu Pratima Jaime MD Time spent in the patient's overall evaluation,decision-making process, review of diagnostic data, adjustment of management, discussion with other providers, nursing nursing and ancillary staff involved in patient's care documentation, 30 minutes Charges/Coding Visit Charges Inpatient E&M: 19703 Subs Hosp L2
[2023-02-21 07:35] LABS: Base Excess 12 mmol/L (-2 to +2); Bicarbonate 36.1 mmol/L (22-26); Blood Gas Specimen Type ART; FI02 50; Mode CPAP/PS; PEEP 7; PO2 99 mmHG (75-100); PS 7; SITE R Brach; SO2 98 % (95-99); Total Carbon Dioxide 38 mmol/L; pH 7.45 (7.35-7.45)
[2023-02-21] MEDS: Potassium Chloride Oral Soln 20 MEQ/15 ML UDC 40 MEQ PO (07:41)
[2023-02-21] MEDS: Lisinopril 2.5 MG Tablet PO (07:43)
--- NOTE | 2023-02-21 07:52 | PN.CC_ITS ---
Assessment & Plan Assessment/Plan (1) Cardiomyopathy: (2) Acute on chronic respiratory failure with hypoxia and hypercapnia: (3) Anemia: (4) Congestive heart failure (CHF): (5) Pneumonia: (6) Lower extremity edema: (7) Hyperglycemia: (8) Lung nodules: PLAN: Plan RECOMMENDATIONS: 1. Proceed with extubation 2. Okay to continue diuresis 3. Defer to cardiology on discontinuation of milrinone 4. Potential BiPAP with sleep pending extubation 5. Electrolyte repletion as indicated 6. Potential transfusion if hemoglobin continues to fall 7. Discontinue IV fluids 8. Continue empiric antibiotics given fever yesterday 9. Outpatient follow-up for incidental nodules at 3 months IMPRESSIONS: 1. Acute on chronic combined respiratory failure Likely multifactorial. Patient does have a cardiomyopathy with an EF of 10% and appear to be overloaded on presentation. Patient has responded well to a milrinone drip with afterload reduction with lisinopril. Potentially reinitiate metoprolol in the future. Patient was able to pass a spontaneous breathing trial this morning, so will be extubated. Patient may require BiPAP with sleep to avoid future complications. We will continue with empiric bronchodilator therapy. There is some concern for concomitant pneumonia as patient had bilateral infiltrates on chest x-ray. Patient is on Zosyn and vancomycin. We will continue these for now given patient's fever yesterday. Await cultures. 2. Acute on chronic systolic CHF Patient with a known ejection fraction of 10%. Cardiology is following. Defer to cardiology on discontinuation of milrinone drip, but patient can proceed with extubation from my perspective. Chest CT and ultrasound do not show a large pleural effusion. Patient is not showing findings of acute ischem ic changes from a cardiology standpoint. 3. Anemia Unclear etiology. Patient has not had any significant clinical bleeding, but hemoglobin continues to fall. Patient was on IV fluids and these will be discontinued. Patient has received some diuretics also. Okay to check a guaiac of the stool. May require a work-up as an outpatient. 4. Advanced age/hyperglycemia/metabolic encephalopathy/incidental lung nodules Complicates care, management, recovery and prognosis. Blood sugars have been controlled. We will need to follow blood sugars closely given extubation and cessation of tube feeds. Patient will need a follow-up CT scan in 3 months to evaluate for incidental nodules. TIME: 35 minutes critical care time spent addressing patient's respiratory failure, CHF, anemia, review of all data and collaboration with care team Subjective Subjective Patient did okay overnight. Patient was able to be placed on a spontaneous awakening and breathing trial this morning. Patient does remain on milrinone and is tolerating this well. Patient is not reporting any pain. Patient was able to tolerate a spontaneous breathing trial for over an hour with no issues. Objective Data Objective Data Patient reportedly has had a cuff leak overnight requiring additional air to be added multiple times. Vital Signs: Vital Signs Temp Pulse Resp BP Pulse Ox O2 Del Method O2 Flow Rate 37.1 C 88 23 H 96/57 L 98 Mechanical Ventilator 2 02/21/23 04:00 02/21/23 07:00 02/21/23 07:00 02/21/23 07:00 02/21/23 07:00 02/21/23 07:00 02/21/23 01:00 FiO2 50 02/21/23 07:00 Oxygen Flow Rate (L/min) 2 Oxygen Delivery Method Mechanical Ventilator Weight: 90.7 kg Body Mass Index (BMI) 33.3 Intake & Output: Intake and Output for Last 24 Hours 02/19/23 02/20/23 02/21/23 23:59 23:59 23:59 Intake Total 1929.82 / 2036.72 3091.93 / 3238.93 1060.33 / 1060.33 Output Total 1525 / 1825 3125 / 3125 850 / 850 Balance 404.82 / 211.72 -33.07 / 113.93 210.33 / 210.33 Lab / Micro Data Attestation: I reviewed the patient's lab results. Result Diagrams: 02/21/23 03:10 02/21/23 03:10 Labs: Laboratory Results - last 24 hr 02/20/23 11:45: Total Creatine Kinase 26, Triglycerides 141 02/20/23 12:48: POC Glucose 160 H 02/20/23 14:05: Sodium 144, Potassium 3.2 L, Chloride 106, Carbon Dioxide 35.0 H , Anion Gap 3 L, BUN 19 H, Creatinine 0.86, Estim Creat Clear Calc 52.42, Est GFR (MDRD) Af Amer 83, Est GFR (MDRD) Non-Af 69, BUN/Creatinine Ratio 22.0 H, Glucose 172 H, Calcium 8.1 L 02/20/23 18:54: POC Glucose 166 H 02/21/23 00:04: POC Glucose 178 H 02/21/23 03:10: WBC 4.2 L, RBC 2.55 L, Hgb 7.1 L, Hct 24.2 L, MCV 94.9, MCH 27.8, MCHC 29.3 L, RDW Std Deviation 54.2 H, RDW Coeff of Amanda 15.8 H, Plt Count 102 L, MPV 9.8, Immature Gran % (Auto) 0.700, Neut % (Auto) 79.0 H, Lymph % (Auto) 14.1 L, [place] % (Auto) 5.3, Eos % (Auto) 0.7, Baso % (Auto) 0.2, Absolute Neuts (auto) 3.3, Absolute Lymphs (auto) 0.59 L, Nucleated RBC % 0, Differential Comment COMMENT, Diff Path Review March, Platelet Estimate SLT 02/21/23 03:10: Sodium 145, Potassium 3.2 L, Chloride 107, Carbon Dioxide 36.0 H , Anion Gap 2 L, BUN 17, Creatinine 0.93, Estim Creat Clear Calc 48.48, Est GFR (MDRD) Af Amer 76, Est GFR (MDRD) Non-Af 63, BUN/Creatinine Ratio 18.3, Glucose 190 H, Calcium 7.9 L, Total Bilirubin 0.80, AST 21, ALT 24, Alkaline Phosphatase 66, Total Protein 5.6 L, Albumin 2.2 L, Globulin 3.4, Albumin/Globulin Ratio 0.6 L 02/21/23 03:10: Vancomycin Trough 25.5 H Micro: Microbiology 02/17/23 22:50 Blood Culture (Wb) - Left Forearm Blood Culture - Preliminary No growth in 48 hours. 02/17/23 22:28 Blood Culture (Wb) - Anticubital Left Blood Culture - Preliminary No growth in 48 hours. 02/19/23 13:30 Urine Catheter - Barnes Urine Culture - Preliminary Culture exhibits no growth. 02/18/23 00:35 Sputum, Induced/Lukens Gram Stain - Final 02/18/23 00:35 Sputum, Induced/Lukens Respiratory Culture - Final 02/17/23 22:33 Urine Catheter - Barnes Legionella Antigen - Final 02/17/23 22:33 Urine Catheter - Catheter Streptococcus pneumoniae Antigen (M - Final 02/17/23 22:35 Nasal Secretion SARS-CoV-2 & FLU Antigen (Rapid) - Final ABG Data ABG results: ABG 02/20/23 02/20/23 02/21/23 11:07 13:48 07:29 Specimen Type ART ART ART Sample Site R Radial R Radial R Brach pH 7.54 H 7.49 H 7.45 Bicarbonate Actual 36.8 H 36.7 H 36.1 H Total CO2 38 38 38 Base Excess 14 H 13 H 12 H O2 Saturation 98 98 98 O2 % 50 50 50 ABG pCO2 42.9 48.2 H 52.0 H ABG pO2 87 92 99 Jovon Test Positive Positive Respiration Rate 15 15 O2 Delivery Device Adult Vent Adult Vent Vent Mode AC/PC AC/PC CPAP/PS POC PEEP 7 7 7 POC Pressure Suppt 13 11 7 Radiography Diagnostic Testing: Radiology Impression Venous Doppler Study 02/18/23 01:42 Interpretation Summary Deep veins of the bilateral lower extremities are patent and compressible segmentally. There is no evidence of bilateral lower extremity deep vein thrombosis. The bilateral great saphenous veins appear patent and compressible segmentally. Ordering Physician: Rebecca Resendiz Referring Physician: Carol Carlisle Performed By: Fabi Delacruz, MARC, RVT Rhythm Strip Rhythm Strip: Sinus Rhythm Rate: 95 Ectopy: None Physical Exam Const no apparent distress and well nourished Constitutional Narrative: Intubated, but interacting appropriately on spontaneous breathing trial. HEENT normocephalic, head/scalp atraumatic and moist oral mucous membranes HEENT Narrative: ET/OG tube in place Eyes PERRL, EOMs intact bilaterally and conjunctivae normal Eyes Narrative: No scleral icterus Neck no lymphadenopathy, supple, no JVD and no carotid bruits Neck Narrative: Trachea midline Resp normal respiratory effort, no retractions, no use of accessory muscles and clear to auscultation bilaterally Auscultation: Negative for rales, rhonchi or wheezes Cardio regular rate, regular rhythm, S1 normal heart sound, S2 normal heart sound, no murmurs, no rub, no gallops and no clicks GI normal to inspection, nondistended, normoactive bowel sounds, soft to palpation and non-tender Extremity General Extremity: edema; Negative for clubbing Skin no rashes or lesions noted, no wounds, skin turgor normal, no jaundice, no p etechiae and no mottling Neuro CN's II-XII intact bilaterally and moves all extremities Neuro Narrative: RASS 0 Psych cooperative and affect normal Charges/Coding Procedures Hospitalists Procedures: [id number] Critial Care 1st Hr
--- NOTE | 2023-02-21 09:51 | PN.CARD_ITS ---
Subjective Subjective In the process of getting weaned off the ventilator. Tolerating spontaneous breathing trial well this morning. Objective Data Vital Signs: Vital Signs Temp Pulse Resp BP Pulse Ox O2 Del Method O2 Flow Rate 98.6 F 88 18 99/59 L 96 Nasal Cannula 2 02/21/23 09:00 02/21/23 09:00 02/21/23 09:00 02/21/23 09:00 02/21/23 09:37 02/21/23 09:37 02/21/23 09:37 FiO2 50 02/21/23 07:00 Oxygen Flow Rate (L/min) 2 Oxygen Delivery Method Nasal Cannula Weight: 199 lb 15.348 oz Body Mass Index (BMI) 33.3 Intake & Output: Intake and Output for Last 24 Hours 02/19/23 02/20/23 02/21/23 23:59 23:59 23:59 Intake Total 1929.82 / 2036.72 3091.93 / 3238.93 1121.83 / 1121.83 Output Total 1525 / 1825 3125 / 3125 850 / 850 Balance 404.82 / 211.72 -33.07 / 113.93 271.83 / 271.83 Lab / Micro Data Result Diagrams: 02/21/23 03:10 02/21/23 03:10 Labs: Laboratory Results - last 24 hr 02/20/23 11:45: Total Creatine Kinase 26, Triglycerides 141 02/20/23 12:48: POC Glucose 160 H 02/20/23 14:05: Sodium 144, Potassium 3.2 L, Chloride 106, Carbon Dioxide 35.0 H , Anion Gap 3 L, BUN 19 H, Creatinine 0.86, Estim Creat Clear Calc 52.42, Est GFR (MDRD) Af Amer 83, Est GFR (MDRD) Non-Af 69, BUN/Creatinine Ratio 22.0 H, Glucose 172 H, Calcium 8.1 L 02/20/23 18:54: POC Glucose 166 H 02/21/23 00:04: POC Glucose 178 H 02/21/23 03:10: WBC 4.2 L, RBC 2.55 L, Hgb 7.1 L, Hct 24.2 L, MCV 94.9, MCH 27.8, MCHC 29.3 L, RDW Std Deviation 54.2 H, RDW Coeff of Amanda 15.8 H, Plt Count 102 L, MPV 9.8, Immature Gran % (Auto) 0.700, Neut % (Auto) 79.0 H, Lymph % (Auto) 14.1 L, [place] % (Auto) 5.3, Eos % (Auto) 0.7, Baso % (Auto) 0.2, Absolute Neuts (auto) 3.3, Absolute Lymphs (auto) 0.59 L, Nucleated RBC % 0, Differential Comment COMMENT, Diff Path Review March foll, Platelet Estimate SLT 02/21/23 03:10: Sodium 145, Potassium 3.2 L, Chloride 107, Carbon Dioxide 36.0 H , Anion Gap 2 L, BUN 17, Creatinine 0.93, Estim Creat Clear Calc 48.48, Est GFR (MDRD) Af Amer 76, Est GFR (MDRD) Non-Af 63, BUN/Creatinine Ratio 18.3, Glucose 190 H, Calcium 7.9 L, Total Bilirubin 0.80, AST 21, ALT 24, Alkaline Phosphatase 66, Total Protein 5.6 L, Albumin 2.2 L, Globulin 3.4, Albumin/Globulin Ratio 0.6 L 02/21/23 03:10: Vancomycin Trough 25.5 H Micro: Microbiology 02/19/23 13:30 Urine Catheter - Barnes Urine Culture - Final Culture exhibits no growth. 02/17/23 22:50 Blood Culture (Wb) - Left Forearm Blood Culture - Preliminary No growth in 48 hours. 02/17/23 22:28 Blood Culture (Wb) - Anticubital Left Blood Culture - Preliminary No growth in 48 hours. 02/18/23 00:35 Sputum, Induced/Lukens Gram Stain - Final 02/18/23 00:35 Sputum, Induced/Lukens Respiratory Culture - Final ABG Data ABG results: ABG 02/20/23 02/20/23 02/21/23 11:07 13:48 07:29 Specimen Type ART ART ART Sample Site R Radial R Radial R Brach pH 7.54 H 7.49 H 7.45 Bicarbonate Actual 36.8 H 36.7 H 36.1 H Total CO2 38 38 38 Base Excess 14 H 13 H 12 H O2 Saturation 98 98 98 O2 % 50 50 50 ABG pCO2 42.9 48.2 H 52.0 H ABG pO2 87 92 99 Jovon Test Positive Positive Respiration Rate 15 15 O2 Delivery Device Adult Vent Adult Vent Vent Mode AC/PC AC/PC CPAP/PS POC PEEP 7 7 7 POC Pressure Suppt 13 11 7 Rhythm Strip Rhythm Strip: Sinus Rhythm Rate: 95 Ectopy: None Cardiology Labs/Tests 02/20/23 11:07: pH 7.54 H, Bicarbonate Actual 36.8 H, Base Excess 14 H, O2 Saturation 98, ABG pCO2 42.9, ABG pO2 87, Jovon Test Positive 02/20/23 11:45: Triglycerides 141 02/20/23 13:48: pH 7.49 H, Bicarbonate Actual 36.7 H, Base Excess 13 H, O2 Saturation 98, ABG pCO2 48.2 H, ABG pO2 92, Jovon Test Positive 02/20/23 14:05: Sodium 144, Potassium 3.2 L, Chloride 106, Carbon Dioxide 35.0 H , Anion Gap 3 L, BUN 19 H, Creatinine 0.86, Est GFR (MDRD) Af Amer 83, Est GFR (MDRD) Non-Af 69, BUN/Creatinine Ratio 22.0 H, Glucose 172 H, Calcium 8.1 L 02/21/23 03:10: WBC 4.2 L, RBC 2.55 L, Hgb 7.1 L, Hct 24.2 L, MCV 94.9, MCH 27.8, MCHC 29.3 L, Plt Count 102 L, MPV 9.8, Immature Gran % (Auto) 0.700, Neut % (Auto) 79.0 H, Lymph % (Auto) 14.1 L, [place] % (Auto) 5.3, Eos % (Auto) 0.7, Baso % (Auto) 0.2, Absolute Neuts (auto) 3.3, Nucleated RBC % 0 02/21/23 03:10: Sodium 145, Potassium 3.2 L, Chloride 107, Carbon Dioxide 36.0 H , Anion Gap 2 L, BUN 17, Creatinine 0.93, Est GFR (MDRD) Af Amer 76, Est GFR (MDRD) Non-Af 63, BUN/Creatinine Ratio 18.3, Glucose 190 H, Calcium 7.9 L, Total Bilirubin 0.80 02/21/23 07:29: pH 7.45, Bicarbonate Actual 36.1 H, Base Excess 12 H, O2 Saturation 98, ABG pCO2 52.0 H, ABG pO2 99 Rhythm: EKG: ECHO: Stress Test: Cardiac Cath: PCI: CT Surgery: Holter monitor: EPS: PPM: CXR: Chest CT Scan: Radiography Diagnostic Testing: Radiology Impression Venous Doppler Study 02/18/23 01:42 Interpretation Summary Deep veins of the bilateral lower extremities are patent and compressible segmentally. There is no evidence of bilateral lower extremity deep vein thrombosis. The bilateral great saphenous veins appear patent and compressible segmentally. Ordering Physician: Rebecca Resenidz Referring Physician: Carol Carlisle Performed By: Fabi Delacruz, MARC, RVT Physical Exam Narrative Intubated. Sedated on vent. Heart sounds 1 and 2 are noted. Chest decreased air entry at bases. Abdomen soft. 2+ bilateral ankle edema noted. Assessment & Plan Assessment/Plan (1) Respiratory disorder with ventilator dependence: PLAN: Combination of congestive heart failure and pneumonia. (2) Congestive heart failure (CHF): PLAN: Continue diuresis. We will plan on stopping milrinone infusion after extubation. (3) Cardiomyopathy: PLAN: Start low-dose DARIUSZ inhibitors. (4) Pneumonia: PLAN: As per critical care/internal medicine. (5) Anemia: PLAN: Drop in hemoglobin noted. Follow as per critical care.
[2023-02-21] MEDS: Enoxaparin 40 MG/0.4 ML Syringe SC (10:24)
[2023-02-21 12:00] LABS: Bedside Glucose 126 mg/dL (74-106)
[2023-02-21 21:36] LABS: Bedside Glucose 115 mg/dL (74-106)
[2023-02-22] VITALS (14 sets, daily range): BP systolic 91–136; BP diastolic 57–67; PULSE 91–99; RESP 16–20; TEMP 36.1–36.8; O2SAT 95–100; BMI 31.4
[2023-02-22 04:22] LABS: Absolute Lymphocyte Count 0.54 X10^3/uL (0.83-4.51); Absolute Neutrophil Count 4.7 X10^3/uL (2.0-7.7); Basophil# 0.01 X10^3/uL; Basophil% 0.2 % (0-1); Eosinophil# 0.09 X10^3/uL; Eosinophils% 1.6 % (0-5); Hemoglobin 8.5 g/dL (12.0-15.0); Lymphocyte # 0.54 X10^3/ul (0.83-4.51); Lymphocyte % 9.4 % (19-41); Mean Corp Hgb Conc 28.3 g/dL (32-36); Mean Corpuscular Hgb 27.3 pg (27.0-32.0); Mean Corpuscular Volume 96.5 fL (81-99); Monocyte# 0.38 X10^3/uL; Monocyte% 6.6 % (0-10); NRBC Flagged by Analyzer 0 % (0-5); Neutrophil # 4.73 X10^3/uL (2.7-7.7); POSITIVE DIFFERENTIAL YES; Platelet Count 120 K/mm3 (150-450); RBC Distribution Width CV 15.6 % (11.6-14.6); RBC Distribution Width SD 54.6 fl (35.1-43.9); Red Blood Count 3.11 M/mm3 (4.2-5.4); White Blood Count 5.8 K/mm3 (4.4-11.0)
[2023-02-22 04:33] LABS: Differential Indicated SCAN CRITERIA MET
[2023-02-22 04:42] LABS: ALB/GLOB Ratio 0.6 RATIO (0.9-2.4); AST(SGOT) 20 U/L (15-37); Alanine Aminotransfer ALT/SGPT 26 U/L (13-56); Albumin, Serum 2.6 g/dL (3.2-5.0); Alkaline Phosphatase 83 U/L (45-117); Anion Gap 1 (5-15); BUN 14 mg/dL (7-18); BUN/Creat Ratio 16.3 RATIO (10-20); Chloride 105 mmol/L (98-107); Creatinine, Serum 0.86 mg/dL (0.55-1.02); EST Glomerular Filtration Rate 69 mL/min (>60); Est Glom Filt Rate - Afr Amer 83 mL/min (>60); Estimated Creatinine Clearance 52.42 ml/min; Globulin 4.5 g/dL (2.2-4.2); Glucose 131 mg/dL (74-106); Potassium 3.4 mmol/L (3.5-5.1); Protein, Total 7.1 g/dL (6.4-8.2); Sodium Level 145 mmol/L (136-145)
[2023-02-22 04:52] LABS: Differential Comment SCANNED
[2023-02-22] MEDS: Furosemide 20 MG/2 ML VIAL IV (05:23)
[2023-02-22] MEDS: Potassium Chloride Oral Tablet 20 MEQ 40 MEQ PO (06:53)
[2023-02-22] MEDS: Ipratropium/Albuterol Sulfate 3 ML AMPUL.NEB INHALATION ×4 (07:01→20:26)
--- NOTE | 2023-02-22 08:20 | PN.HOSP_ITS ---
Reason for Visit Reason for Visit: Diagnoses Anemia, unspecified (02/18/23) Metabolic encephalopathy (02/18/23) Cardiomyopathy, unspecified (02/18/23) Heart failure, unspecified (02/18/23) Pneumonia, unspecified organism (02/18/23) Chronic obstructive pulmonary disease, unspecified (02/18/23) Acute and chronic respiratory failure with hypoxia (02/18/23) Acute and chronic respiratory failure with hypercapnia (02/18/23) Respiratory disorder, unspecified (02/18/23) Localized edema (02/18/23) Hyperglycemia, unspecified (02/18/23) Other nonspecific abnormal finding of lung field (02/18/23) Dependence on respirator [ventilator] status (02/18/23) Subjective Subjective Resting comfortably in bed, did have some GI upset and has C. difficile pending yesterday but had some nausea Going to retry for breakfast today but not nauseated at this time. Has slight cough which she attributes to being intubated but denies problems with her breathing, no other complaints at this time Objective Data Objective Data Vital Signs: Vital Signs Temp Pulse Resp BP Pulse Ox O2 Del Method O2 Flow Rate 98 F 91 16 128/61 H 98 Nasal Cannula 1 02/22/23 04:00 02/22/23 04:00 02/22/23 04:00 02/22/23 04:00 02/22/23 04:00 02/22/23 04:00 02/22/23 04:00 FiO2 50 02/21/23 07:00 Oxygen Flow Rate (L/min) 1 Oxygen Delivery Method Nasal Cannula Weight: 85.502 kg Body Mass Index (BMI) 31.4 Intake & Output: Intake and Output for Last 24 Hours 02/20/23 02/21/23 02/22/23 23:59 23:59 23:59 Intake Total 3091.93 / 3238.93 1558.78 / 1558.78 50 / 50 Output Total 3125 / 3125 3705 / 3705 850 / 850 Balance -33.07 / 113.93 -2146.22 / -2146.22 -800 / -800 Lab / Micro Data Result Diagrams: 02/22/23 04:05 02/22/23 04:05 Labs: Laboratory Results - last 24 hr 02/21/23 11:27: POC Glucose 126 H 02/21/23 21:11: POC Glucose 115 H 02/22/23 04:05: WBC 5.8, RBC 3.11 L, Hgb 8.5 L, Hct 30.0 L, MCV 96.5, MCH 27.3, MCHC 28.3 L, RDW Std Deviation 54.6 H, RDW Coeff of Amanda 15.6 H, Plt Count 120 L, MPV 9.0, Immature Gran % (Auto) 0.200, Neut % (Auto) 82.0 H, Lymph % (Auto) 9.4 L, [place] % (Auto) 6.6, Eos % (Auto) 1.6, Baso % (Auto) 0.2, Absolute Neuts (auto) 4.7, Absolute Lymphs (auto) 0.54 L, Nucleated RBC % 0, Differential Comment SCANNED 02/22/23 04:05: Sodium 145, Potassium 3.4 L, Chloride 105, Carbon Dioxide 39.0 H , Anion Gap 1 L, BUN 14, Creatinine 0.86, Estim Creat Clear Calc 52.42, Est GFR (MDRD) Af Amer 83, Est GFR (MDRD) Non-Af 69, BUN/Creatinine Ratio 16.3, Glucose 131 H, Calcium 9.0, Total Bilirubin 1.00, AST 20, ALT 26, Alkaline Phosphatase 83, Total Protein 7.1, Albumin 2.6 L, Globulin 4.5 H, Albumin/Globulin Ratio 0.6 L Micro: Microbiology 02/20/23 11:45 Blood Culture (Wb) - Right Hand Blood Culture - Preliminary No growth in 48 hours. 02/22/23 05:40 Stool Stool Occult Blood (TATO) - Final 02/20/23 19:10 Sputum, Induced/Lukens Gram Stain - Final 02/19/23 13:30 Urine Catheter - Barnes Urine Culture - Final Culture exhibits no growth. 02/17/23 22:50 Blood Culture (Wb) - Left Forearm Blood Culture - Preliminary No growth in 48 hours. 02/17/23 22:28 Blood Culture (Wb) - Anticubital Left Blood Culture - Preliminary No growth in 48 hours. 02/18/23 00:35 Sputum, Induced/Lukens Gram Stain - Final 02/18/23 00:35 Sputum, Induced/Lukens Respiratory Culture - Final 02/17/23 22:33 Urine Catheter - Barnes Legionella Antigen - Final 02/17/23 22:33 Urine Catheter - Catheter Streptococcus pneumoniae Antigen (M - Final 02/17/23 22:35 Nasal Secretion SARS-CoV-2 & FLU Antigen (Rapid) - Final Rhythm Strip Rhythm Strip: Sinus Rhythm Rate: 95 Ectopy: None Physical Exam Narrative General: Awake, alert, no acute distress HEENT: Atraumatic, normocephalic Eyes: Anicteric, normal conjunctiva, extraocular movements grossly intact Neck: Supple Respiratory: Clear to auscultation bilaterally, normal respiratory effort Cardiovascular: Regular rate and rhythm GI: Soft, nontender, nondistended Extremities: No significant edema Musculoskeletal: Moving all extremities Neuro: No overt focal neurological deficits Skin: No rashes appreciated Psych: Cooperative Assessment & Plan Assessment/Plan (1) Cardiomyopathy: (2) Acute on chronic respiratory failure with hypoxia and hypercapnia: (3) Anemia: (4) Congestive heart failure (CHF): (5) Pneumonia: (6) Lower extremity edema: (7) Hyperglycemia: (8) Lung nodules: PLAN: Plan #Acute on chronic hypoxic hypercapnic resp failure 2/2 PNA and acute HFrEF -Intubated on arrival -Improved, extubated 02/21/23 -Remains on vancomycin and Zosyn -Awaiting cultures -On scheduled nebs -02/22: Extubated and doing well, will transfer to PCU. Continued on diuresis. Milrinone discontinued. Bicarb increasing, unsure if this is due to volume contraction given diuresis or CO2 retention now that she is extubated, will obtain ABG. If retaining CO2 may need BiPAP nightly and as needed or if all due to volume contraction may need to de-escalate Lasix. Continue nebs #Diarrhea -C. difficile pending, had some nausea yesterday but improved today. Going to attempt to eat breakfast #Acute HFrEF -Echo w/ EF 10% with severely dilated left ventricle and severe global left ventricular systolic dysfunction. -Cardiology following -Remains on milrinone. Date this evening, management per cardiology -Continuing diuresis -02/22: Started on 2.5 mg of lisinopril, is presently on 20 mg IV every 8 of Lasix, no increase in BUN and creatinine stable at this time, has had significant weight loss from 90.7 kg documented yesterday to 85.5 kg today. Has fluid balance of -3 L. Can consider de-escalation and Lasix as patient has improved does not appear to be significantly overloaded at this time and additionally all cell lines in CBC increased and bicarb increased to 39 #Type 2 diabetes mellitus -Glucose checks and sliding scale insulin -Home oral hypoglycemics held #Chronic anemia/thrombocytopenia -Transfuse if hemoglobin falls below 7 -Hemoglobin has been downtrending but no overt bleeding noted, possibly delusional given her IV fluids -We will check FOBT -02/22: Hemoglobin up to 8.5 today, still no signs symptoms of bleeding and FOBT negative #Cervical spine fracture of sixth and seventh cervical vertebrae -Pt/OT -Was reason for her nursing facility placement #1.3 cm asymmetric density in the anterior left breast -Needs oupt diagnostic mammogram #Incidental lung nodules -Patient will need a follow-up CT scan in 3 months to evaluate for incidental nodules #DVT ppx: Lovenox subcu Pratima Jaime MD Time spent in the patient's overall evaluation,decision-making process, review of diagnostic data, adjustment of management, discussion with other providers, nursing nursing and ancillary staff involved in patient's care documentation, 30 minutes Charges/Coding Visit Charges Inpatient E&M: 81893 Subs Hosp L2
--- NOTE | 2023-02-22 08:32 | PN.CC_ITS ---
Assessment & Plan Assessment/Plan (1) Cardiomyopathy: (2) Acute on chronic respiratory failure with hypoxia and hypercapnia: (3) Anemia: (4) Congestive heart failure (CHF): (5) Pneumonia: (6) Lower extremity edema: (7) Hyperglycemia: (8) Lung nodules: PLAN: Plan RECOMMENDATIONS: 1. Continue cardiac optimization per cardiology 2. Likely complete a 7-day course of antibiotics 3. Increase activity as tolerated 4. Potential BiPAP with sleep pending extubation 5. Electrolyte repletion as indicated 6. Hemodynamically stable on minimal nasal cannula. Will sign off from a pulmonary/critical care perspective 7. Outpatient follow-up for incidental nodules at 3 months IMPRESSIONS: 1. Acute on chronic combined respiratory failure Likely multifactorial. Patient does have a cardiomyopathy with an EF of 10% and appear to be overloaded on presentation. Patient has responded well to a milrinone drip with afterload reduction with lisinopril. Likely okay to reinitiate metoprolol from my perspective. Patient on minimal nasal cannula at this time. Will sign off from a pulmonary/critical care perspective 2. Acute on chronic systolic CHF Patient with a known ejection fraction of 10%. Cardiology is following. Defer to cardiology on discontinuation of milrinone drip, but patient can proceed with extubation from my perspective. Chest CT and ultrasound do not show a large pleural effusion. Patient is not showing findings of acute ischemic changes from a cardiology standpoint. 3. Anemia Unclear etiology. Appears stable. Patient has not had any significant clinical bleeding, but hemoglobin continues to fall. Patient was on IV fluids and these will be discontinued. Okay to check a guaiac of the stool. May require a work-up as an outpatient. 4. Advanced age/hyperglycemia/metabolic encephalopathy/incidental lung nodules Complicates care, management, recovery and prognosis. Blood sugars have been controlled. We will need to follow blood sugars closely given extubation and cessation of tube feeds. Patient will need a follow-up CT scan in 3 months to evaluate for incidental nodules. Subjective Subjective Patient did well overnight. Patient was taken off of milrinone yesterday. Patient is requiring minimal nasal cannula oxygen. No bleeding complications have been reported, but patient did have diarrhea overnight so C. difficile has been sent. Patient is not reporting any abdominal pain. Objective Data Objective Data Vital Signs: Vital Signs Temp Pulse Resp BP Pulse Ox O2 Del Method O2 Flow Rate 36.6 C 91 16 128/61 H 98 Nasal Cannula 1 02/22/23 04:00 02/22/23 04:00 02/22/23 04:00 02/22/23 04:00 02/22/23 04:00 02/22/23 04:00 02/22/23 04:00 FiO2 50 02/21/23 07:00 Oxygen Flow Rate (L/min) 1 Oxygen Delivery Method Nasal Cannula Weight: 85.502 kg Body Mass Index (BMI) 31.4 Intake & Output: Intake and Output for Last 24 Hours 02/20/23 02/21/23 02/22/23 23:59 23:59 23:59 Intake Total 3091.93 / 3238.93 1558.78 / 1558.78 50 / 50 Output Total 3125 / 3125 3705 / 3705 850 / 850 Balance -33.07 / 113.93 -2146.22 / -2146.22 -800 / -800 Lab / Micro Data Attestation: I reviewed the patient's lab results. Result Diagrams: 02/22/23 04:05 02/22/23 04:05 Labs: Laboratory Results - last 24 hr 02/21/23 11:27: POC Glucose 126 H 02/21/23 21:11: POC Glucose 115 H 02/22/23 04:05: WBC 5.8, RBC 3.11 L, Hgb 8.5 L, Hct 30.0 L, MCV 96.5, MCH 27.3, MCHC 28.3 L, RDW Std Deviation 54.6 H, RDW Coeff of Amanda 15.6 H, Plt Count 120 L, MPV 9.0, Immature Gran % (Auto) 0.200, Neut % (Auto) 82.0 H, Lymph % (Auto) 9.4 L, [place] % (Auto) 6.6, Eos % (Auto) 1.6, Baso % (Auto) 0.2, Absolute Neuts (auto) 4.7, Absolute Lymphs (auto) 0.54 L, Nucleated RBC % 0, Differential Comment SCANNED 02/22/23 04:05: Sodium 145, Potassium 3.4 L, Chloride 105, Carbon Dioxide 39.0 H , Anion Gap 1 L, BUN 14, Creatinine 0.86, Estim Creat Clear Calc 52.42, Est GFR (MDRD) Af Amer 83, Est GFR (MDRD) Non-Af 69, BUN/Creatinine Ratio 16.3, Glucose 131 H, Calcium 9.0, Total Bilirubin 1.00, AST 20, ALT 26, Alkaline Phosphatase 83, Total Protein 7.1, Albumin 2.6 L, Globulin 4.5 H, Albumin/Globulin Ratio 0.6 L Micro: Microbiology 02/20/23 11:45 Blood Culture (Wb) - Right Hand Blood Culture - Preliminary No growth in 48 hours. 02/22/23 05:40 Stool Stool Occult Blood (TATO) - Final 02/20/23 19:10 Sputum, Induced/Lukens Gram Stain - Final 02/19/23 13:30 Urine Catheter - Barnes Urine Culture - Final Culture exhibits no growth. 02/17/23 22:50 Blood Culture (Wb) - Left Forearm Blood Culture - Preliminary No growth in 48 hours. 02/17/23 22:28 Blood Culture (Wb) - Anticubital Left Blood Culture - P reliminary No growth in 48 hours. 02/18/23 00:35 Sputum, Induced/Lukens Gram Stain - Final 02/18/23 00:35 Sputum, Induced/Lukens Respiratory Culture - Final 02/17/23 22:33 Urine Catheter - Barnes Legionella Antigen - Final 02/17/23 22:33 Urine Catheter - Catheter Streptococcus pneumoniae Antigen (M - Final 02/17/23 22:35 Nasal Secretion SARS-CoV-2 & FLU Antigen (Rapid) - Final Rhythm Strip Rhythm Strip: Sinus Rhythm Rate: 91 Ectopy: None Physical Exam Const alert, oriented x3, no apparent distress and well nourished Constitutional Narrative: No conversational dyspnea. Sitting in the chair eating breakfast without difficulty HEENT normocephalic, head/scalp atraumatic and moist oral mucous membranes Eyes PERRL, EOMs intact bilaterally and conjunctivae normal Eyes Narrative: No scleral icterus Neck no lymphadenopathy, supple, no JVD and no carotid bruits Neck Narrative: Trachea midline Resp normal respiratory effort, no retractions, no use of accessory muscles and clear to auscultation bilaterally Auscultation: Negative for rales, rhonchi or wheezes Cardio regular rate, regular rhythm, S1 normal heart sound, S2 normal heart sound, no murmurs, no rub, no gallops and no clicks GI normal to inspection, nondistended, normoactive bowel sounds, soft to palpation and non-tender Extremity General Extremity: edema; Negative for clubbing Skin no rashes or lesions noted, no wounds, skin turgor normal, no jaundice, no petechiae and no mottling Neuro CN's II-XII intact bilaterally and moves all extremities Neuro Narrative: RASS 0 Psych cooperative and affect normal Charges/Coding Visit Charges Inpatient E&M: 49210 Subs Hosp L2
[2023-02-22] MEDS: Enoxaparin 40 MG/0.4 ML Syringe SC (09:17)
[2023-02-22] MEDS: Folic Acid 1 MG Tablet PO (09:17)
[2023-02-22] MEDS: Lisinopril 2.5 MG Tablet PO ×2 (09:17→21:43)
[2023-02-22] MEDS: Pantoprazole Sodium 40 MG Tablet PO (09:17)
--- NOTE | 2023-02-22 09:22 | PN.CARD_ITS ---
Subjective Subjective Successfully extubated yesterday. Sitting up in the chair this morning. Denies any complaints. Objective Data Vital Signs: Vital Signs Temp Pulse Resp BP Pulse Ox O2 Del Method O2 Flow Rate 98 F 91 16 128/61 H 98 Nasal Cannula 1 02/22/23 04:00 02/22/23 04:00 02/22/23 04:00 02/22/23 04:00 02/22/23 04:00 02/22/23 04:00 02/22/23 04:00 FiO2 50 02/21/23 07:00 Oxygen Flow Rate (L/min) 1 Oxygen Delivery Method Nasal Cannula Weight: 188 lb 8 oz Body Mass Index (BMI) 31.4 Intake & Output: Intake and Output for Last 24 Hours 02/20/23 02/21/23 02/22/23 23:59 23:59 23:59 Intake Total 3091.93 / 3238.93 1558.78 / 1558.78 50 / 50 Output Total 3125 / 3125 3705 / 3705 850 / 850 Balance -33.07 / 113.93 -2146.22 / -2146.22 -800 / -800 Lab / Micro Data Attestation: I reviewed the patient's lab results. Result Diagrams: 02/22/23 04:05 02/22/23 04:05 Labs: Laboratory Results - last 24 hr 02/21/23 11:27: POC Glucose 126 H 02/21/23 21:11: POC Glucose 115 H 02/22/23 04:05: WBC 5.8, RBC 3.11 L, Hgb 8.5 L, Hct 30.0 L, MCV 96.5, MCH 27.3, MCHC 28.3 L, RDW Std Deviation 54.6 H, RDW Coeff of Amanda 15.6 H, Plt Count 120 L, MPV 9.0, Immature Gran % (Auto) 0.200, Neut % (Auto) 82.0 H, Lymph % (Auto) 9.4 L, [place] % (Auto) 6.6, Eos % (Auto) 1.6, Baso % (Auto) 0.2, Absolute Neuts (auto) 4.7, Absolute Lymphs (auto) 0.54 L, Nucleated RBC % 0, Differential Comment SCANNED 02/22/23 04:05: Sodium 145, Potassium 3.4 L, Chloride 105, Carbon Dioxide 39.0 H , Anion Gap 1 L, BUN 14, Creatinine 0.86, Estim Creat Clear Calc 52.42, Est GFR (MDRD) Af Amer 83, Est GFR (MDRD) Non-Af 69, BUN/Creatinine Ratio 16.3, Glucose 131 H, Calcium 9.0, Total Bilirubin 1.00, AST 20, ALT 26, Alkaline Phosphatase 83, Total Protein 7.1, Albumin 2.6 L, Globulin 4.5 H, Albumin/Globulin Ratio 0.6 L Micro: Microbiology 02/20/23 11:45 Blood Culture (Wb) - Right Hand Blood Culture - Preliminary No growth in 48 hours. 02/22/23 05:40 Stool Stool Occult Blood (TATO) - Final 02/20/23 19:10 Sputum, Induced/Lukens Gram Stain - Final 02/19/23 13:30 Urine Catheter - Barnes Urine Culture - Final Culture exhibits no growth. Rhythm Strip Rhythm Strip: Sinus Rhythm Rate: 91 Ectopy: None Cardiology Labs/Tests 02/22/23 04:05: WBC 5.8, RBC 3.11 L, Hgb 8.5 L, Hct 30.0 L, MCV 96.5, MCH 27.3, MCHC 28.3 L, Plt Count 120 L, MPV 9.0, Immature Gran % (Auto) 0.200, Neut % (Auto) 82.0 H, Lymph % (Auto) 9.4 L, [place] % (Auto) 6.6, Eos % (Auto) 1.6, Baso % (Auto) 0.2, Absolute Neuts (auto) 4.7, Nucleated RBC % 0 02/22/23 04:05: Sodium 145, Potassium 3.4 L, Chloride 105, Carbon Dioxide 39.0 H , Anion Gap 1 L, BUN 14, Creatinine 0.86, Est GFR (MDRD) Af Amer 83, Est GFR (MDRD) Non-Af 69, BUN/Creatinine Ratio 16.3, Glucose 131 H, Calcium 9.0, Total Bilirubin 1.00 Rhythm: Normal sinus rhythm. EKG: ECHO: Stress Test: Cardiac Cath: PCI: CT Surgery: Holter monitor: EPS: PPM: CXR: Chest CT Scan: Physical Exam Narrative Heart sounds 1 and 2 are noted. Regular rate and rhythm. Chest decreased breath sounds at bases. No ankle edema noted. Assessment & Plan Assessment/Plan (1) Respiratory disorder with ventilator dependence: PLAN: Improved. Successfully weaned off the ventilator. (2) Congestive heart failure (CHF): PLAN: Continue diuresis. Change Lasix to p.o. Introduce low-dose beta- blockers. Increase DARIUSZ inhibitor's as tolerated. Start Aldactone. Start on SGLT2 inhibitors. (3) Cardiomyopathy: PLAN: See #2 above. (4) Pneumonia: PLAN: As per critical care/internal medicine. (5) Anemia: PLAN: Drop in hemoglobin noted. Follow as per critical care.
[2023-02-22 10:32] LABS: Bedside Glucose 138 mg/dL (74-106)
[2023-02-22] MEDS: Carvedilol 3.125 MG TABLET PO ×2 (11:18→21:43)
[2023-02-22] MEDS: Furosemide 40 MG Tablet PO (11:18)
[2023-02-22] MEDS: Empagliflozin 10 MG Tablet PO (11:18)
[2023-02-22 11:45] LABS: Bedside Glucose 148 mg/dL (74-106)
--- NOTE | 2023-02-22 12:09 | CASEMGMT ---
Social Work LILY called to confirm pt is to return to [facility] at discharge, message left. LILY attempted to call daughter, it does not go through. LILY called Admissions at [facility] is in [facility] at present. and daughter live with Pamela Gillette([phone]), she may have a number for Cele. LILY called Pamela, she had Cele call LILY. Cele called, confirmed plan is for pt to return to [facility] when ready. Cele does not need a list of half-way facilities in the area. Support offered to Cele as both parents are in the hospital. Cele's number is [phone], SW will update demographics. Cele states she was told there was to be a family meeting. LILY checked w/discharge specialist, bedside RN and hospitalist, none aware of meeting. LILY let Cele know, will call her back if LILY learns anything different. LILY sent all updates to [facility] via [employer]. Plan: Return to [facility] when ready. ORLANDO Griffin
[2023-02-22] MEDS: Spironolactone 25 MG Tablet 12.5 MG PO (17:06)
[2023-02-23] VITALS (8 sets, daily range): BP systolic 89–138; BP diastolic 45–71; PULSE 77–89; RESP 18–20; TEMP 36.6–37; O2SAT 95–99; BMI 30.8
[2023-02-23 00:11] LABS: Bedside Glucose 142 mg/dL (74-106)
[2023-02-23 00:11] LABS: Bedside Glucose 128 mg/dL (74-106)
[2023-02-23 06:22] LABS: Absolute Lymphocyte Count 0.74 X10^3/uL (0.83-4.51); Absolute Neutrophil Count 4.2 X10^3/uL (2.0-7.7); Basophil# 0.01 X10^3/uL; Basophil% 0.2 % (0-1); Eosinophil# 0.08 X10^3/uL; Eosinophils% 1.5 % (0-5); Hematocrit 31.6 % (37-47); Lymphocyte # 0.74 X10^3/ul (0.83-4.51); Lymphocyte % 13.7 % (19-41); Mean Corp Hgb Conc 28.5 g/dL (32-36); Mean Corpuscular Hgb 27.6 pg (27.0-32.0); Mean Corpuscular Volume 96.9 fL (81-99); Mean Platelet Vol. 8.9 fl (6.2-12.0); Monocyte# 0.33 X10^3/uL; Monocyte% 6.1 % (0-10); NRBC Flagged by Analyzer 0 % (0-5); Neutrophil # 4.22 X10^3/uL (2.7-7.7); Neutrophil % 78.1 % (47-70); Platelet Count 135 K/mm3 (150-450); RBC Distribution Width CV 15.3 % (11.6-14.6); RBC Distribution Width SD 54.9 fl (35.1-43.9); Red Blood Count 3.26 M/mm3 (4.2-5.4); White Blood Count 5.4 K/mm3 (4.4-11.0)
[2023-02-23 06:49] LABS: ALB/GLOB Ratio 0.6 RATIO (0.9-2.4); AST(SGOT) 20 U/L (15-37); Alanine Aminotransfer ALT/SGPT 26 U/L (13-56); Albumin, Serum 2.5 g/dL (3.2-5.0); Alkaline Phosphatase 70 U/L (45-117); Anion Gap 2 (5-15); BUN 22 mg/dL (7-18); BUN/Creat Ratio 24.4 RATIO (10-20); Calcium,Total 8.8 mg/dL (8.5-10.1); Chloride 103 mmol/L (98-107); EST Glomerular Filtration Rate 65 mL/min (>60); Est Glom Filt Rate - Afr Amer 79 mL/min (>60); Estimated Creatinine Clearance 50.09 ml/min; Globulin 4.2 g/dL (2.2-4.2); Glucose 135 mg/dL (74-106); Potassium 3.3 mmol/L (3.5-5.1); Protein, Total 6.7 g/dL (6.4-8.2); Sodium Level 143 mmol/L (136-145)
[2023-02-23 07:01] LABS: Bedside Glucose 134 mg/dL (74-106)
[2023-02-23] MEDS: Ipratropium/Albuterol Sulfate 3 ML AMPUL.NEB INHALATION ×3 (07:38→20:20)
[2023-02-23] MEDS: 0.9% Saline Lock 10 ML Syringe IV (09:05)
[2023-02-23] MEDS: Ondansetron 4 MG/2 ML Vial IV (09:05)
[2023-02-23] MEDS: Folic Acid 1 MG Tablet PO (09:21)
[2023-02-23] MEDS: Empagliflozin 10 MG Tablet PO (09:21)
[2023-02-23] MEDS: Enoxaparin 40 MG/0.4 ML Syringe SC (09:21)
[2023-02-23] MEDS: Potassium Chloride Oral Tablet 20 MEQ 40 MEQ PO (09:21)
[2023-02-23] MEDS: Pantoprazole Sodium 40 MG Tablet PO (09:21)
--- NOTE | 2023-02-23 09:35 | PCM.PN.CARD ---
Subjective Subjective No chest pain or shortness of breath. Objective Data Vital Signs: Vital Signs Temp Pulse Resp BP Pulse Ox O2 Del Method O2 Flow Rate 98.5 F 84 18 89/45 L 95 Nasal Cannula 1 02/23/23 09:20 02/23/23 09:20 02/23/23 09:20 02/23/23 09:20 02/23/23 09:20 02/23/23 09:20 02/23/23 09:20 FiO2 50 02/21/23 07:00 Oxygen Flow Rate (L/min) 1 Oxygen Delivery Method Nasal Cannula Weight: 185 lb 6.54 oz Body Mass Index (BMI) 30.8 Intake & Output: Intake and Output for Last 24 Hours 02/21/23 02/22/23 02/23/23 23:59 23:59 23:59 Intake Total 1558.78 / 1558.78 425 / 425 50 / 50 Output Total 3705 / 3705 1000 / 1000 Balance -2146.22 / -2146.22 -575 / -575 50 / 50 Lab / Micro Data Result Diagrams: 02/23/23 05:09 02/23/23 05:09 Labs: Laboratory Results - last 24 hr 02/18/23 12:51: Miscellaneous Test 02/21/23 15:42: POC Glucose 138 H 02/22/23 11:27: POC Glucose 148 H 02/22/23 17:00: POC Glucose 142 H 02/22/23 21:39: POC Glucose 128 H 02/23/23 05:09: WBC 5.4, RBC 3.26 L, Hgb 9.0 L, Hct 31.6 L, MCV 96.9, MCH 27.6, MCHC 28.5 L, RDW Std Deviation 54.9 H, RDW Coeff of Amanda 15.3 H, Plt Count 135 L, MPV 8.9, Immature Gran % (Auto) 0.400, Neut % (Auto) 78.1 H, Lymph % (Auto) 13.7 L, [place] % (Auto) 6.1, Eos % (Auto) 1.5, Baso % (Auto) 0.2, Absolute Neuts (auto) 4.2, Absolute Lymphs (auto) 0.74 L, Nucleated RBC % 0 02/23/23 05:09: Sodium 143, Potassium 3.3 L, Chloride 103, Carbon Dioxide 38.0 H, Anion Gap 2 L, BUN 22 H, Creatinine 0.90, Estim Creat Clear Calc 50.09, Est GFR (MDRD) Af Amer 79, Est GFR (MDRD) Non-Af 65, BUN/Creatinine Ratio 24.4 H, Glucose 135 H, Calcium 8.8, Total Bilirubin 0.70, AST 20, ALT 26, Alkaline Phosphatase 70, Total Protein 6.7, Albumin 2.5 L, Globulin 4.2, Albumin/Globulin Ratio 0.6 L 02/23/23 06:39: POC Glucose 134 H Micro: Microbiology 02/17/23 22:50 Blood Culture (Wb) - Left Forearm Blood Culture - Final No growth in 5 days. 02/17/23 22:28 Blood Culture (Wb) - Anticubital Left Blood Culture - Final No growth in 5 days. 02/20/23 19:10 Sputum, Induced/Lukens Gram Stain - Final 02/20/23 19:10 Sputum, Induced/Lukens Respiratory Culture - Final Presumptive C albicans 02/22/23 05:40 Stool C. difficile DNA Amplification - Final 02/20/23 11:45 Blood Culture (Wb) - Right Hand Blood Culture - Preliminary No growth in 48 hours. 02/22/23 05:40 Stool Stool Occult Blood (TATO) - Final Rhythm Strip Rhythm Strip: Sinus Rhythm Rate: 91 Ectopy: None Cardiology Labs/Tests 02/23/23 05:09: WBC 5.4, RBC 3.26 L, Hgb 9.0 L, Hct 31.6 L, MCV 96.9, MCH 27.6, MCHC 28.5 L, Plt Count 135 L, MPV 8.9, Immature Gran % (Auto) 0.400, Neut % (Auto) 78.1 H, Lymph % (Auto) 13.7 L, [place] % (Auto) 6.1, Eos % (Auto) 1.5, Baso % (Auto) 0.2, Absolute Neuts (auto) 4.2, Nucleated RBC % 0 02/23/23 05:09: Sodium 143, Potassium 3.3 L, Chloride 103, Carbon Dioxide 38.0 H, Anion Gap 2 L, BUN 22 H, Creatinine 0.90, Est GFR (MDRD) Af Amer 79, Est GFR (MDRD) Non-Af 65, BUN/Creatinine Ratio 24.4 H, Glucose 135 H, Calcium 8.8, Total Bilirubin 0.70 Rhythm: EKG: ECHO: Stress Test: Cardiac Cath: PCI: CT Surgery: Holter monitor: EPS: PPM: CXR: Chest CT Scan: Physical Exam Narrative Heart sounds 1 and 2 are noted. Regular rate and rhythm. Chest decreased breath sounds at bases. No ankle edema noted. Assessment & Plan Assessment/Plan (1) Congestive heart failure (CHF): PLAN: Improved. Presently compensated. Continue treatment. (2) Cardiomyopathy: PLAN: See #2 above. (3) Pneumonia: PLAN: As per critical care/internal medicine. (4) Anemia: PLAN: Hemoglobin actually improved.
[2023-02-23 10:44] LABS: Pathologist Review Reviewed
--- NOTE | 2023-02-23 10:51 | PN.HOSP_ITS ---
Reason for Visit Reason for Visit: Diagnoses Anemia, unspecified (02/18/23) Metabolic encephalopathy (02/18/23) Cardiomyopathy, unspecified (02/18/23) Heart failure, unspecified (02/18/23) Pneumonia, unspecified organism (02/18/23) Chronic obstructive pulmonary disease, unspecified (02/18/23) Acute and chronic respiratory failure with hypoxia (02/18/23) Acute and chronic respiratory failure with hypercapnia (02/18/23) Respiratory disorder, unspecified (02/18/23) Localized edema (02/18/23) Hyperglycemia, unspecified (02/18/23) Other nonspecific abnormal finding of lung field (02/18/23) Dependence on respirator [ventilator] status (02/18/23) Subjective Subjective Continues to feel better though reports this morning had felt slightly worse and nauseous but was given Zofran and throughout the day has been improving, denies worsening in breathing, still has cough Objective Data Objective Data Vital Signs: Vital Signs Temp Pulse Resp BP Pulse Ox O2 Del Method O2 Flow Rate 98.5 F 84 18 89/45 L 95 Nasal Cannula 1 02/23/23 09:20 02/23/23 09:20 02/23/23 09:20 02/23/23 09:20 02/23/23 09:20 02/23/23 09:20 02/23/23 09:20 FiO2 50 02/21/23 07:00 Oxygen Flow Rate (L/min) 1 Oxygen Delivery Method Nasal Cannula Weight: 84.1 kg Body Mass Index (BMI) 30.8 Intake & Output: Intake and Output for Last 24 Hours 02/21/23 02/22/23 02/23/23 23:59 23:59 23:59 Intake Total 1558.78 / 1558.78 425 / 425 100 / 100 Output Total 3705 / 3705 1000 / 1000 Balance -2146.22 / -2146.22 -575 / -575 100 / 100 Lab / Micro Data Result Diagrams: 02/23/23 05:09 02/23/23 05:09 Labs: Laboratory Results - last 24 hr 02/18/23 12:51: Miscellaneous Test 02/21/23 03:10: Diff Path Review Reviewed 02/22/23 11:27: POC Glucose 148 H 02/22/23 17:00: POC Glucose 142 H 02/22/23 21:39: POC Glucose 128 H 02/23/23 05:09: WBC 5.4, RBC 3.26 L, Hgb 9.0 L, Hct 31.6 L, MCV 96.9, MCH 27.6, MCHC 28.5 L, RDW Std Deviation 54.9 H, RDW Coeff of Amanda 15.3 H, Plt Count 135 L, MPV 8.9, Immature Gran % (Auto) 0.400, Neut % (Auto) 78.1 H, Lymph % (Auto) 13.7 L, [place] % (Auto) 6.1, Eos % (Auto) 1.5, Baso % (Auto) 0.2, Absolute Neuts (auto) 4.2, Absolute Lymphs (auto) 0.74 L, Nucleated RBC % 0 02/23/23 05:09: Sodium 143, Potassium 3.3 L, Chloride 103, Carbon Dioxide 38.0 H , Anion Gap 2 L, BUN 22 H, Creatinine 0.90, Estim Creat Clear Calc 50.09, Est GFR (MDRD) Af Amer 79, Est GFR (MDRD) Non-Af 65, BUN/Creatinine Ratio 24.4 H, Glucose 135 H, Calcium 8.8, Total Bilirubin 0.70, AST 20, ALT 26, Alkaline Phosphatase 70, Total Protein 6.7, Albumin 2.5 L, Globulin 4.2, Albumin/Globulin Ratio 0.6 L 02/23/23 06:39: POC Glucose 134 H Micro: Microbiology 02/17/23 22:50 Blood Culture (Wb) - Left Forearm Blood Culture - Final No growth in 5 days. 02/17/23 22:28 Blood Culture (Wb) - Anticubital Left Blood Culture - Final No growth in 5 days. 02/20/23 19:10 Sputum, Induced/Lukens Gram Stain - Final 02/20/23 19:10 Sputum, Induced/Lukens Respiratory Culture - Final Presumptive C albicans 02/22/23 05:40 Stool C. difficile DNA Amplification - Final 02/20/23 11:45 Blood Culture (Wb) - Right Hand Blood Culture - Preliminary No growth in 48 hours. 02/22/23 05:40 Stool Stool Occult Blood (TATO) - Final 02/19/23 13:30 Urine Catheter - Barnes Urine Culture - Final Culture exhibits no growth. 02/18/23 00:35 Sputum, Induced/Lukens Gram Stain - Final 02/18/23 00:35 Sputum, Induced/Lukens Respiratory Culture - Final 02/17/23 22:33 Urine Catheter - Barnes Legionella Antigen - Final 02/17/23 22:33 Urine Catheter - Catheter Streptococcus pneumoniae Antigen (M - Final 02/17/23 22:35 Nasal Secretion SARS-CoV-2 & FLU Antigen (Rapid) - Final Rhythm Strip Rhythm Strip: Sinus Rhythm Rate: 91 Ectopy: None Physical Exam Narrative General: Awake, alert, no acute distress HEENT: Atraumatic, normocephalic Eyes: Anicteric, normal conjunctiva, extraocular movements grossly intact Neck: Supple Respiratory: Slightly diminished at the bases, normal respiratory effort Cardiovascular: Regular rate GI: Soft, nontender, nondistended Extremities: No significant edema Musculoskeletal: Moving all extremities Neuro: No overt focal neurological deficits Skin: No rashes appreciated Psych: Cooperative Assessment & Plan Assessment/Plan (1) Cardiomyopathy: (2) Acute on chronic respiratory failure with hypoxia and hypercapnia: (3) Anemia: (4) Congestive heart failure (CHF): (5) Pneumonia: (6) Lower extremity edema: (7) Hyperglycemia: (8) Lung nodules: PLAN: Plan #Acute on chronic hypoxic hypercapnic resp failure 2/2 PNA and acute HFrEF -Intubated on arrival -Improved, extubated 02/21/23 -Remains on vancomycin and Zosyn -Awaiting cultures -On scheduled nebs -02/22: Extubated and doing well, will transfer to PCU. Continued on diuresis. Milrinone discontinued. Bicarb increasing, unsure if this is due to volume contraction given diuresis or CO2 retention now that she is extubated, will obtain ABG. If retaining CO2 may need BiPAP nightly and as needed or if all due to volume contraction may need to de-escalate Lasix. Continue nebs -02/23: Only using 1 L of O2, significantly improved. Yesterday had slightly elevated PCO2 at 52 but this is similar to what has been previously, bicarb did not increase any further. Continue Lasix. 2 more days of Zosyn to complete 7- day course #Diarrhea -C. difficile pending, had some nausea yesterday but improved today. Going to attempt to eat breakfast -02/23: Continues to have some diarrhea, C. difficile and FOBT were negative. #Acute HFrEF -Echo w/ EF 10% with severely dilated left ventricle and severe global left ventricular systolic dysfunction. -Cardiology following -Remains on milrinone. Date this evening, management per cardiology -Continuing diuresis -02/22: Started on 2.5 mg of lisinopril, is presently on 20 mg IV every 8 of Lasix, no increase in BUN and creatinine stable at this time, has had significant weight loss from 90.7 kg documented yesterday to 85.5 kg today. Has fluid balance of -3 L. Can consider de-escalation and Lasix as patient has improved does not appear to be significantly overloaded at this time and additionally all cell lines in CBC increased and bicarb increased to 39 -02/23: BP low today so a.m. meds were held, will change lisinopril to daily and hold spironolactone and Jardiance and assess for blood pressure improvement so that she can continue Coreg, lisinopril, Lasix. Ultimately will benefit from all of the agents however must also balance BP #Type 2 diabetes mellitus -Glucose checks and sliding scale insulin -Home oral hypoglycemics held -02/23: Has not been requiring any sliding scale insulin, will DC glucose checks and sliding scale insulin at this time #Chronic anemia/thrombocytopenia -Transfuse if hemoglobin falls below 7 -Hemoglobin has been downtrending but no overt bleeding noted, possibly delusional given her IV fluids -We will check FOBT -02/22: Hemoglobin up to 8.5 today, still no signs symptoms of bleeding and FOBT negative -02/23: Hemoglobin stable #Cervical spine fracture of sixth and seventh cervical vertebrae -Pt/OT -Was reason for her nursing facility placement -We will return back upon DC #1.3 cm asymmetric density in the anterior left breast -Needs oupt diagnostic mammogram #Incidental lung nodules -Patient will need a follow-up CT scan in 3 months to evaluate for incidental nodules #DVT ppx: Lovenox subcu Pratima Jaime MD Time spent in the patient's overall evaluation,decision-making process, review of diagnostic data, adjustment of management, discussion with other providers, nursing nursing and ancillary staff involved in patient's care documentation, 30 minutes Charges/Coding Visit Charges Inpatient E&M: 37724 Subs Hosp L2
[2023-02-23 11:36] LABS: Bedside Glucose 136 mg/dL (74-106)
--- NOTE | 2023-02-23 14:27 | CASEMGMT ---
LILY sent updates to [facility] ([facility]) via [facility]. LILY also called Caroline in admissions and let her know patient may return tomorrow. Precious Sidhu [employer]
[2023-02-23] MEDS: Carvedilol 3.125 MG TABLET PO (20:47)
[2023-02-24] VITALS (9 sets, daily range): BP systolic 94–111; BP diastolic 48–55; PULSE 80–86; RESP 12–19; TEMP 36.1–36.9; O2SAT 95–100; BMI 30.8
[2023-02-24] MEDS: 0.9% Saline Lock 10 ML Syringe IV (05:18)
[2023-02-24 05:47] LABS: Absolute Lymphocyte Count 0.75 X10^3/uL (0.83-4.51); Absolute Neutrophil Count 4.8 X10^3/uL (2.0-7.7); Basophil# 0.01 X10^3/uL; Basophil% 0.2 % (0-1); Eosinophil# 0.09 X10^3/uL; Eosinophils% 1.5 % (0-5); Hematocrit 32.6 % (37-47); Hemoglobin 9.1 g/dL (12.0-15.0); Lymphocyte # 0.75 X10^3/ul (0.83-4.51); Lymphocyte % 12.6 % (19-41); Mean Corp Hgb Conc 27.9 g/dL (32-36); Mean Corpuscular Volume 100.3 fL (81-99); Mean Platelet Vol. 9.4 fl (6.2-12.0); Monocyte% 5.1 % (0-10); NRBC Flagged by Analyzer 0 % (0-5); Neutrophil # 4.76 X10^3/uL (2.7-7.7); Neutrophil % 80.1 % (47-70); Platelet Count 132 K/mm3 (150-450); RBC Distribution Width CV 14.9 % (11.6-14.6); RBC Distribution Width SD 54.9 fl (35.1-43.9); Red Blood Count 3.25 M/mm3 (4.2-5.4); White Blood Count 5.9 K/mm3 (4.4-11.0)
[2023-02-24] MEDS: Ipratropium/Albuterol Sulfate 3 ML AMPUL.NEB INHALATION ×3 (07:16→19:28)
[2023-02-24 07:49] LABS: ALB/GLOB Ratio 0.6 RATIO (0.9-2.4); AST(SGOT) 20 U/L (15-37); Alanine Aminotransfer ALT/SGPT 26 U/L (13-56); Albumin, Serum 2.8 g/dL (3.2-5.0); Alkaline Phosphatase 77 U/L (45-117); Anion Gap 2 (5-15); BUN 27 mg/dL (7-18); Calcium,Total 9.2 mg/dL (8.5-10.1); Chloride 103 mmol/L (98-107); Creatinine, Serum 1.04 mg/dL (0.55-1.02); EST Glomerular Filtration Rate 55 mL/min (>60); Est Glom Filt Rate - Afr Amer 67 mL/min (>60); Estimated Creatinine Clearance 43.35 ml/min; Globulin 4.6 g/dL (2.2-4.2); Glucose 134 mg/dL (74-106); Potassium 3.8 mmol/L (3.5-5.1); Protein, Total 7.4 g/dL (6.4-8.2); Sodium Level 142 mmol/L (136-145)
[2023-02-24] MEDS: Pantoprazole Sodium 40 MG Tablet PO (09:29)
[2023-02-24] MEDS: Folic Acid 1 MG Tablet PO (09:29)
[2023-02-24] MEDS: Carvedilol 3.125 MG TABLET PO ×2 (09:29→21:20)
[2023-02-24] MEDS: Furosemide 40 MG Tablet PO (09:29)
[2023-02-24] MEDS: Enoxaparin 40 MG/0.4 ML Syringe SC (09:30)
[2023-02-24] MEDS: Lisinopril 2.5 MG Tablet PO (09:30)
--- NOTE | 2023-02-24 15:19 | PN.HOSP_ITS ---
Reason for Visit Reason for Visit: Diagnoses Anemia, unspecified (02/18/23) Metabolic encephalopathy (02/18/23) Cardiomyopathy, unspecified (02/18/23) Heart failure, unspecified (02/18/23) Pneumonia, unspecified organism (02/18/23) Chronic obstructive pulmonary disease, unspecified (02/18/23) Acute and chronic respiratory failure with hypoxia (02/18/23) Acute and chronic respiratory failure with hypercapnia (02/18/23) Respiratory disorder, unspecified (02/18/23) Localized edema (02/18/23) Hyperglycemia, unspecified (02/18/23) Other nonspecific abnormal finding of lung field (02/18/23) Dependence on respirator [ventilator] status (02/18/23) Subjective Subjective Certainly improving, nausea improving, diarrhea improving. Objective Data Objective Data Vital Signs: Vital Signs Temp Pulse Resp BP Pulse Ox O2 Del Method O2 Flow Rate 98.1 F 81 18 94/55 L 100 Nasal Cannula 1 02/24/23 15:00 02/24/23 15:00 02/24/23 15:00 02/24/23 15:00 02/24/23 15:00 02/24/23 15:00 02/24/23 15:00 FiO2 50 02/21/23 07:00 Oxygen Flow Rate (L/min) 1 Oxygen Delivery Method Nasal Cannula Weight: 84 kg Body Mass Index (BMI) 30.8 Intake & Output: Intake and Output for Last 24 Hours 02/22/23 02/23/23 02/24/23 23:59 23:59 23:59 Intake Total 425 / 425 630 / 730 440 / 440 Output Total 1000 / 1000 200 / 200 Balance -575 / -575 630 / 730 240 / 240 Lab / Micro Data Result Diagrams: 02/24/23 05:10 02/24/23 07:05 Labs: Laboratory Results - last 24 hr 02/24/23 05:10: WBC 5.9, RBC 3.25 L, Hgb 9.1 L, Hct 32.6 L, MCV 100.3 H, MCH 28.0, MCHC 27.9 L, RDW Std Deviation 54.9 H, RDW Coeff of Amanda 14.9 H, Plt Count 132 L, MPV 9.4, Immature Gran % (Auto) 0.500, Neut % (Auto) 80.1 H, Lymph % (Auto) 12.6 L, [place] % (Auto) 5.1, Eos % (Auto) 1.5, Baso % (Auto) 0.2, Absolute Neuts (auto) 4.8, Absolute Lymphs (auto) 0.75 L, Nucleated RBC % 0 02/24/23 05:10: Sodium Cancelled, Potassium Cancelled, Chloride Cancelled, Carbon Dioxide Cancelled, Anion Gap Cancelled, BUN Cancelled, Creatinine Cancelled, Estim Creat Clear Calc Cancelled, Est GFR (MDRD) Af Amer Cancelled, Est GFR (MDRD) Non-Af Cancelled, BUN/Creatinine Ratio Cancelled, Glucose C ancelled, Calcium Cancelled, Total Bilirubin Cancelled, AST Cancelled, ALT Cancelled, Alkaline Phosphatase Cancelled, Total Protein Cancelled, Albumin Cancelled, Globulin Cancelled, Albumin/Globulin Ratio Cancelled 02/24/23 07:05: Sodium 142, Potassium 3.8, Chloride 103, Carbon Dioxide 37.0 H, Anion Gap 2 L, BUN 27 H, Creatinine 1.04 H, Estim Creat Clear Calc 43.35, Est GFR (MDRD) Af Amer 67, Est GFR (MDRD) Non-Af 55 L, BUN/Creatinine Ratio 26.0 H, Glucose 134 H, Calcium 9.2, Total Bilirubin 0.50, AST 20, ALT 26, Alkaline Phosphatase 77, Total Protein 7.4, Albumin 2.8 L, Globulin 4.6 H, Albumin/Globulin Ratio 0.6 L Micro: Microbiology 02/17/23 22:50 Blood Culture (Wb) - Left Forearm Blood Culture - Final No growth in 5 days. 02/17/23 22:28 Blood Culture (Wb) - Anticubital Left Blood Culture - Final No growth in 5 days. 02/20/23 19:10 Sputum, Induced/Lukens Gram Stain - Final 02/20/23 19:10 Sputum, Induced/Lukens Respiratory Culture - Final Presumptive C albicans 02/22/23 05:40 Stool C. difficile DNA Amplification - Final 02/20/23 11:45 Blood Culture (Wb) - Right Hand Blood Culture - Preliminary No growth in 48 hours. 02/22/23 05:40 Stool Stool Occult Blood (TATO) - Final 02/19/23 13:30 Urine Catheter - Barnes Urine Culture - Final Culture exhibits no growth. 02/18/23 00:35 Sputum, Induced/Lukens Gram Stain - Final 02/18/23 00:35 Sputum, Induced/Lukens Respiratory Culture - Final 02/17/23 22:33 Urine Catheter - Barnes Legionella Antigen - Final 02/17/23 22:33 Urine Catheter - Catheter Streptococcus pneumoniae Antigen (M - Final 02/17/23 22:35 Nasal Secretion SARS-CoV-2 & FLU Antigen (Rapid) - Final Rhythm Strip Rhythm Strip: Sinus Rhythm Rate: 91 Ectopy: None Physical Exam Narrative General: Awake, alert, no acute distress HEENT: Atraumatic, normocephalic Eyes: Anicteric, normal conjunctiva, extraocular movements grossly intact Neck: Supple Respiratory: Slightly diminished at the bases, normal respiratory effort Cardiovascular: Regular rate GI: Soft, nontender, nondistended Extremities: No significant edema Musculoskeletal: Moving all extremities Neuro: No overt focal neurological deficits Skin: No rashes appreciated Psych: Cooperative Assessment & Plan Assessment/Plan (1) Cardiomyopathy: (2) Acute on chronic respiratory failure with hypoxia and hypercapnia: (3) Anemia: (4) Congestive heart failure (CHF): (5) Pneumonia: (6) Lower extremity edema: (7) Hyperglycemia: (8) Lung nodules: PLAN: Plan #Acute on chronic hypoxic hypercapnic resp failure 2/2 PNA and acute HFrEF -Intubated on arrival -Improved, extubated 02/21/23 -Remains on vancomycin and Zosyn -Awaiting cultures -On scheduled nebs -02/22: Extubated and doing well, will transfer to PCU. Continued on diuresis. Milrinone discontinued. Bicarb increasing, unsure if this is due to volume contraction given diuresis or CO2 retention now that she is extubated, will obtain ABG. If retaining CO2 may need BiPAP nightly and as needed or if all due to volume contraction may need to de-escalate Lasix. Continue nebs -02/23: Only using 1 L of O2, significantly improved. Yesterday had slightly elevated PCO2 at 52 but this is similar to what has been previously, bicarb did not increase any further. Continue Lasix. 2 more days of Zosyn to complete 7- day course -02/24: Patient only on 1 L of O2 for comfort. Blood pressure has been on the lower side and BUN/creatinine increased slightly, will decrease Lasix likely for tomorrow. Jardiance and Aldactone were held today but lisinopril and carvedilol continued. Once okay for DC from cardiology perspective can go back to SNF with further management and adjustment of medications on an outpatient basis now that she is stable. We will finish her Zosyn antibiotic course tomorrow #Diarrhea -C. difficile pending, had some nausea yesterday but improved today. Going to attempt to eat breakfast -02/23: Continues to have some diarrhea, C. difficile and FOBT were negative. -02/24: Improving #Acute HFrEF -Echo w/ EF 10% with severely dilated left ventricle and severe global left ventricular systolic dysfunction. -Cardiology following -Remains on milrinone. Date this evening, management per cardiology -Continuing diuresis -02/22: Started on 2.5 mg of lisinopril, is presently on 20 mg IV every 8 of Lasix, no increase in BUN and creatinine stable at this time, has had significant weight loss from 90.7 kg documented yesterday to 85.5 kg today. Has fluid balance of -3 L. Can consider de-escalation and Lasix as patient has improved does not appear to be significantly overloaded at this time and additionally all cell lines in CBC increased and bicarb increased to 39 -02/23: BP low today so a.m. meds were held, will change lisinopril to daily and hold spironolactone and Jardiance and assess for blood pressure improvement so that she can continue Coreg, lisinopril, Lasix. Ultimately will benefit from all of the agents however must also balance BP Patient only on 1 L of O2 for comfort. Blood pressure has been on the lower side and BUN/creatinine increased slightly, will decrease Lasix likely for tomorrow. Jardiance and Aldactone were held today but lisinopril and carvedilol continued. Once okay for DC from cardiology perspective can go back to SNF with further management and adjustment of medications on an outpatient basis now that she is stable. #Type 2 diabetes mellitus -Glucose checks and sliding scale insulin -Home oral hypoglycemics held -02/23: Has not been requiring any sliding scale insulin, will DC glucose checks and sliding scale insulin at this time #Chronic anemia/thrombocytopenia -Transfuse if hemoglobin falls below 7 -Hemoglobin has been downtrending but no overt bleeding noted, possibly delusional given her IV fluids -We will check FOBT -02/22: Hemoglobin up to 8.5 today, still no signs symptoms of bleeding and FOBT negative -02/23: Hemoglobin stable #Cervical spine fracture of sixth and seventh cervical vertebrae -Pt/OT -Was reason for her nursing facility placement -We will return back upon DC #1.3 cm asymmetric density in the anterior left breast -Needs oupt diagnostic mammogram #Incidental lung nodules -Patient will need a follow-up CT scan in 3 months to evaluate for incidental nodules #DVT ppx: Lovenox subcu Pratima Jaime MD Time spent in the patient's overall evaluation,decision-making process, review of diagnostic data, adjustment of management, discussion with other providers, nursing nursing and ancillary staff involved in patient's care documentation, 30 minutes Charges/Coding Visit Charges Inpatient E&M: 51097 Subs Hosp L2
[2023-02-25] MEDS: Acetaminophen 325 MG Tablet 650 MG PO (01:29)
[2023-02-25 03:00] VITALS: BP 111/56; PULSE 77; RESP 16; TEMP 36.5; O2SAT 98
[2023-02-25 06:00] VITALS: BMI 30.1
[2023-02-25 06:49] LABS: ALB/GLOB Ratio 0.6 RATIO (0.9-2.4); AST(SGOT) 20 U/L (15-37); Alanine Aminotransfer ALT/SGPT 23 U/L (13-56); Albumin, Serum 2.6 g/dL (3.2-5.0); Alkaline Phosphatase 69 U/L (45-117); Anion Gap 2 (5-15); BUN 23 mg/dL (7-18); Calcium,Total 8.7 mg/dL (8.5-10.1); Chloride 106 mmol/L (98-107); Creatinine, Serum 0.85 mg/dL (0.55-1.02); EST Glomerular Filtration Rate 69 mL/min (>60); Est Glom Filt Rate - Afr Amer 84 mL/min (>60); Estimated Creatinine Clearance 53.04 ml/min; Globulin 4.5 g/dL (2.2-4.2); Glucose 106 mg/dL (74-106); Potassium 4.3 mmol/L (3.5-5.1); Protein, Total 7.1 g/dL (6.4-8.2); Sodium Level 142 mmol/L (136-145)
[2023-02-25 07:11] VITALS: PULSE 88; RESP 20; O2SAT 96
[2023-02-25] MEDS: Ipratropium/Albuterol Sulfate 3 ML AMPUL.NEB INHALATION ×2 (07:11→13:27)
[2023-02-25 08:18] LABS: Absolute Lymphocyte Count 0.74 X10^3/uL (0.83-4.51); Basophil# 0.01 X10^3/uL; Basophil% 0.2 % (0-1); Eosinophil# 0.06 X10^3/uL; Eosinophils% 1.2 % (0-5); Hemoglobin 9.5 g/dL (12.0-15.0); Lymphocyte # 0.74 X10^3/ul (0.83-4.51); Lymphocyte % 14.7 % (19-41); Mean Corp Hgb Conc 27.9 g/dL (32-36); Mean Corpuscular Hgb 27.5 pg (27.0-32.0); Mean Corpuscular Volume 98.3 fL (81-99); Mean Platelet Vol. 8.7 fl (6.2-12.0); Monocyte# 0.22 X10^3/uL; Monocyte% 4.4 % (0-10); NRBC Flagged by Analyzer 0 % (0-5); Neutrophil % 79.1 % (47-70); Platelet Count 146 K/mm3 (150-450); RBC Distribution Width CV 14.5 % (11.6-14.6); Red Blood Count 3.46 M/mm3 (4.2-5.4); White Blood Count 5.1 K/mm3 (4.4-11.0)
[2023-02-25 08:35] VITALS: BP 103/44; PULSE 79; RESP 18; TEMP 36.3; O2SAT 98
[2023-02-25] MEDS: Pantoprazole Sodium 40 MG Tablet PO (08:36)
[2023-02-25] MEDS: Carvedilol 3.125 MG TABLET PO (08:36)
[2023-02-25] MEDS: Folic Acid 1 MG Tablet PO (08:36)
[2023-02-25] MEDS: Lisinopril 2.5 MG Tablet PO (08:36)
[2023-02-25] MEDS: Furosemide 40 MG Tablet 20 MG PO (08:36)
[2023-02-25] MEDS: Menthol/Lanolin/Calamine/Znox 113 GM Tube 1 APPLIC TOPICAL (08:37)
[2023-02-25] MEDS: Enoxaparin 40 MG/0.4 ML Syringe SC (08:37)
--- NOTE | 2023-02-25 10:05 | CASEMGMT ---
Patient will be discharged back to [facility] ([facility]) today. LILY called Caroline at [facility] and notified her of discharge. Plan: d/c back to [facility] Precious HACKETT
--- NOTE | 2023-02-25 11:33 | TREXTCAR_ITS ---
Diet Diet Order/Speech Therapy: 02/21/23 12:19 ADA [Diet: Cardiac: Calorie-Controlled] Food consistency:: Regular Liquid Consistency:: Regular/Thin Dietary Modifications:: No Added Salt Is pt able to select menu?: No Fluid restriction:: 2000 mL How many daily calories?: 1800 calorie Routine Orders/Code Status Suppository Type: Dulcolax 10mg Suppository Frequency: Daily PRN Routine Lab Work: BMP (2-3 days) Wound(s) Left Buttock: Wound Type: Pressure Injury Therapies Physical Therapy: Eval and Treat Occupational Therapy: Eval and Treat Problem/Diagnosis (1) Cardiomyopathy: Status: Acute Code(s): I42.9 - Cardiomyopathy, unspecified (2) Acute on chronic respiratory failure with hypoxia and hypercapnia: Status: Chronic Code(s): J96.21 - Acute and chronic respiratory failure with hypoxia; J96.22 - Acute and chronic respiratory failure with hypercapnia (3) Anemia: Status: Acute Code(s): D64.9 - Anemia, unspecified (4) Congestive heart failure (CHF): Status: Acute Code(s): I50.9 - Heart failure, unspecified (5) Pneumonia: Status: Acute Code(s): J18.9 - Pneumonia, unspecified organism (6) Lower extremity edema: Status: Acute Code(s): R60.0 - Localized edema (7) Hyperglycemia: Status: Acute Code(s): R73.9 - Hyperglycemia, unspecified (8) Lung nodules: Status: Acute Code(s): R91.8 - Other nonspecific abnormal finding of lung field Plan 72-year-old female history of COPD, GERD, hypertension, type 2 diabetes mellitus, displaced fracture of cervical vertebra resulting in [place] [facility], VTE presented to [facility] 02/18/23 due to unresponsiveness. She was found unresponsive by the [place] [facility] where she lived. She was found to be hypoxic in the 70s and she was intubated. She was started on vancomycin and Zosyn and given Lasix, cultures were obtained. It was felt that her acute on chronic combined respiratory failure was multifactorial due to an echo finding her EF at 10% with severely dilated left ventricle and severe global left ventricular dysfunction and her fluid overload on presentation as well as concern for pneumonia. She completed an antibiotic course for pneumonia and was aggressively diuresed and responded well to this. Also required a milrinone drip while in the ICU and lisinopril and she responded very well to that. After extubation she did have some diarrhea but C. difficile negative and this improved by day of discharge. During her hospitalization she did have low hemoglobin but no signs or symptoms of bleeding and FOBT negative. Her hemoglobin was stable and this felt to be chronic in nature. Blood pressure somewhat low but suspect this is due to her heart failure. Jardiance and spironolactone were held and she was continued on Coreg 3.125 mg twice daily, lisinopril 2.5 mg daily, Lasix 20 mg daily and tolerated this well. Can have further adjustments on an outpatient basis. On day of discharge feeling well, diarrhea improved, no other acute complaints. She completed her antibiotics course for pneumonia. DISCHARGE INSTRUCTIONS PLEASE READ -You have had several medication changes, he will be taking Coreg 3.125 mg twice daily, lisinopril 2.5 mg daily, Lasix 20 mg daily. -You will stop your losartan and your metoprolol -Due to your low blood pressure your gabapentin 300 mg 3 times daily has been held, this can be restarted on an outpatient basis as blood pressure improves -Your blood glucose for your age was reasonable without medication, would advise holding your Amaryl as this will increase risk of hypoglycemia -Would recommend lab work (BMP) to check your kidney function in 2 to 3 days through your primary care physician's office. Please call their office upon discharge to obtain order for lab work. -You will need to follow-up with cardiology upon discharge, please call the office upon discharge to schedule your hospital follow-up appointment ( [phone]) -Weigh yourself every day. A sudden weight gain can mean you are retaining fluid. Weigh yourself at the same time of day and in the same kind of clothes. Ideally, weigh yourself first thing in the morning after you empty your bladder, but before you eat breakfast. -Please call your physician if your weight goes up by more than 2 pounds in 1 day or 5 pounds in 1 week. This can be a sign that you are retaining more fluid than you should be. -You will need a follow-up CT scan in 3 months to evaluate nodule seen on your imaging -Additionally you have a 1.3 cm asymmetrical density in the anterior left breast and you will need an outpatient diagnostic mammogram for this- It is strongly advised that you refrain from any substance use. -Please call your primary care provider's office upon discharge to schedule a hospital follow up within 1 week. -For any concerning signs or symptoms please call 911 or proceed to the nearest emergency department #Acute on chronic hypoxic hypercapnic resp failure 2/2 PNA and acute HFrEF #Diarrhea- resolved #Acute HFrEF #Type 2 diabetes mellitus- diet controlled #Chronic anemia/thrombocytopenia #Cervical spine fracture of sixth and seventh cervical vertebrae #1.3 cm asymmetric density in the anterior left breast #Incidental lung nodules Allergies/Procedures Done in Hospital Allergies cyclobenzaprine [From Flexeril] Allergy (Verified 02/17/23 22:35) Other tizanidine [From Zanaflex] Allergy (Verified 02/17/23 22:35) Other Procedures: - (Intubation, extubation, lower venous study, chest CT, echocardiogram, brain CT) Type of Care/Length of Stay Estimated LOS: Convalescent Care Less Than 30 days Type of Care Needed: Skilled Rehab Potential: Fair Prognosis: Fair Additional Orders/Day of Discharge Day of Discharge: 02/25/23 Dietary and Speech Recommendations Dietitian Recommendations/Changes: Recommend 1800 CCD/No Added salt diet to manage medical conditions. Discharge Plan Admission Admit Date/Time: 02/18/23 00:19 Primary Reason for Your Visit: Low oxygen levels Attending Provider: Pratima Jaime Primary Care Provider: Carol Carlisle NP Consulting Providers: Serge Banks ; Ajit Mcgill ; Martín Monique ; Krzysztof Pennington ; Viji Richey SENIOR MARKETING DATA ANALYST ; Rebecca Resendiz ; Thomas Ahumada ; Hernando Padron Instructions Patient Instructions: Coping with Heart Failure, Cardiomyopathy Dc Additional Instructions / Restrictions: DISCHARGE INSTRUCTIONS PLEASE READ -You have had several medication changes, he will be taking Coreg 3.125 mg twice daily, lisinopril 2.5 mg daily, Lasix 20 mg daily. -You will stop your losartan and your metoprolol -Due to your low blood pressure your gabapentin 300 mg 3 times daily has been held, this can be restarted on an outpatient basis as blood pressure improves -Your blood glucose for your age was reasonable without medication, would advise holding your Amaryl as this will increase risk of hypoglycemia -Would recommend lab work ([facility]) to check your kidney function in 2 to 3 days through your primary care physician's office. Please call their office upon discharge to obtain order for lab work. -You will need to follow-up with cardiology upon discharge, please call the office upon discharge to schedule your hospital follow-up appointment ) -Weigh yourself every day. A sudden weight gain can mean you are retaining fluid. Weigh yourself at the same time of day and in the same kind of clothes. Ideally, weigh yourself first thing in the morning after you empty your bladder, but before you eat breakfast. -Please call your physician if your weight goes up by more than 2 pounds in 1 day or 5 pounds in 1 week. This can be a sign that you are retaining more fluid than you should be. -You will need a follow-up CT scan in 3 months to evaluate nodule seen on your imaging -Additionally you have a 1.3 cm asymmetrical density in the anterior left breast and you will need an outpatient diagnostic mammogram for this- It is strongly advised that you refrain from any substance use. -Please call your primary care provider's office upon discharge to schedule a hospital follow up within 1 week. -For any concerning signs or symptoms please call 911 or proceed to the nearest emergency department Discharge Orders/Prescriptions Prescriptions: New furosemide 40 mg Tablet 20 mg PO DAILY 30 Days Qty: 0 0RF ipratropium-albuterol 0.5 mg-3 mg(2.5 mg base)/3 mL Solution For Nebulization 3 ml inhalation Q8H 30 Days Qty: 0 0RF carvedilol 3.125 mg Tablet 3.125 mg PO BID 30 Days Qty: 0 0RF lisinopril 2.5 mg Tablet 2.5 mg PO DAILY 30 Days Qty: 30 0RF Continued bisacodyl 10 mg suppository 10 mg CO DAILY PRN cranberry 400 mg capsule 400 mg PO DAILY Rx Instructions: administer with a meal ferrous sulfate 200 mg (40 mg iron) tablet PO folic acid 1 mg tablet 1 mg PO DAILY glucagon 1 mg kit IM cyanocobalamin (vitamin B-12) 1,000 mcg capsule 1,000 mcg PO DAILY nystatin 100,000 unit/gram cream 1 applic TOPICAL BID omeprazole 20 mg capsule,delayed release(/EC) 20 mg PO DAILY simvastatin 10 mg tablet 10 mg PO QHS Changed docusate sodium 100 mg capsule 100 mg PO DAILY PRN (Reason: constipation) Qty: 60 0RF Discontinued glimepiride [Amaryl] 1 mg tablet 1 mg PO DAILY oxycodone 5 mg capsule 5 mg PO Q6H PRN metoprolol succinate 50 mg tablet extended release 24 hr 50 PO DAILY losartan 100 mg tablet 100 mg PO DAILY gabapentin 300 mg capsule 300 mg PO TID Label Comments: TAKE (1) CAPSULE BY MOUTH IN THE MORNING, 2 CAPSULES BY MOUTH EACH EVEING AND 2 CAPSULES BY MOUTH AT BEDTIME Referrals / Follow Up: Miroslava Gonzalez MD [Med Staff - Active Staff] - See Referral Note (You will need to follow-up with cardiology upon discharge, please call the office upon discharge to schedule your hospital follow-up appointment (ph [phone])) Carol Carlisle SENIOR MARKETING DATA ANALYST, SENIOR MARKETING DATA ANALYST-C [Primary Care Provider] - Within 1 Week Disposition Disposition (needs filled in before D/C Order can be placed[facility]
--- NOTE | 2023-02-25 11:40 | PCM.DC.SUM ---
Providers Date of Admission: 02/18/23 Primary Care Physician: ARLENE Edmonds Consultations 02/18/23 01:42 Consult: Rug Dyer Helper / Pulmonary Medicine Routine Consulting Provider: [facility] Reason for Consult: Vent management EMERGENT Consult: No MD Notified: Yes Date Notified: 02/18/23 Time Notified: 00:24 Method of Notification: ED Physician Initiated 02/18/23 12:13 Consult: Interventional Radiology Urgent Consulting Provider: Thomas Ahumada Reason for Consult: Possible left thoracentesis for left possible left pleural effusion EMERGENT Consult: Yes MD Notified: Yes Date Notified: 02/18/23 Time Notified: 12:14 Method of Notification: Verbal 02/19/23 07:33 Consult: Cardiology Routine Consulting Provider: Hernando Padron Reason for Consult: EF=10% EMERGENT Consult: No MD Notified: Yes Date Notified: 02/19/23 Time Notified: 07:33 Method of Notification: Answering Service Reason For Visit: ACUTE ON CHRONIC HYPOXIC AND HYPERCAPNIC Diagnosis Discharge Diagnosis (1) Cardiomyopathy: Status: Acute Code(s): I42.9 - Cardiomyopathy, unspecified (2) Acute on chronic respiratory failure with hypoxia and hypercapnia: Status: Chronic Code(s): J96.21 - Acute and chronic respiratory failure with hypoxia; J96.22 - Acute and chronic respiratory failure with hypercapnia (3) Anemia: Status: Acute Code(s): D64.9 - Anemia, unspecified (4) Congestive heart failure (CHF): Status: Acute Code(s): I50.9 - Heart failure, unspecified (5) Pneumonia: Status: Acute Code(s): J18.9 - Pneumonia, unspecified organism (6) Lower extremity edema: Status: Acute Code(s): R60.0 - Localized edema (7) Hyperglycemia: Status: Acute Code(s): R73.9 - Hyperglycemia, unspecified (8) Lung nodules: Status: Acute Code(s): R91.8 - Other nonspecific abnormal finding of lung field Plan #Acute on chronic hypoxic hypercapnic resp failure 2/2 PNA and acute HFrEF #Diarrhea- resolved #Acute HFrEF #Type 2 diabetes mellitus- diet controlled #Chronic anemia/thrombocytopenia #Cervical spine fracture of sixth and seventh cervical vertebrae #1.3 cm asymmetric density in the anterior left breast #Incidental lung nodules Medications at Discharge Home Medications nystatin 100,000 unit/gram topical cream 1 applic topical BID Check with primary doctor 11/24/21 omeprazole 20 mg capsule,delayed release 20 mg PO DAILY Check with primary doctor 11/24/21 simvastatin 10 mg tablet 10 mg PO QHS Check with primary doctor 11/24/21 bisacodyl 10 mg rectal suppository 10 mg FL DAILY PRN 11/11/22 cranberry 400 mg capsule 400 mg PO DAILY 11/11/22 cyanocobalamin (vitamin B-12) 1,000 mcg capsule 1,000 mcg PO DAILY 11/11/22 ferrous sulfate 200 mg (40 mg iron) tablet PO 11/11/22 folic acid 1 mg tablet 1 mg PO DAILY 11/11/22 glucagon 1 mg injection kit mg IM 11/11/22 carvedilol 3.125 mg tablet 3.125 mg PO BID 30 days #0 tabs 02/25/23 docusate sodium 100 mg capsule 100 mg PO DAILY PRN constipation #60 caps 02/25/23 furosemide 40 mg tablet 20 mg PO DAILY 30 days #0 tabs 02/25/23 ipratropium 0.5 mg-albuterol 3 mg (2.5 mg base)/3 mL nebulization soln 3 ml inhalation Q8H 30 days #0 mL 02/25/23 lisinopril 2.5 mg tablet 2.5 mg PO DAILY 30 days #30 tabs 02/25/23 Hospital Course Procedures - (Intubation, extubation, lower venous study, chest CT, echocardiogram, brain CT) Summary of Care Provided Minutes Spent on Discharge: 36 Hospital Course: 72-year-old female history of COPD, GERD, hypertension, type 2 diabetes mellitus, displaced fracture of cervical vertebra resulting in long term placement, VTE presented to [facility] 02/18/23 due to unresponsiveness. She was found unresponsive by the long term where she lived. She was found to be hypoxic in the 70s and she was intubated. She was started on vancomycin and Zosyn and given Lasix, cultures were obtained. It was felt that her acute on chronic combined respiratory failure was multifactorial due to an echo finding her EF at 10% with severely dilated left ventricle and severe global left ventricular dysfunction and her fluid overload on presentation as well as concern for pneumonia. She completed an antibiotic course for pneumonia and was aggressively diuresed and responded well to this. Also required a milrinone drip while in the ICU and lisinopril and she responded very well to that. After extubation she did have some diarrhea but C. difficile negative and this improved by day of discharge. During her hospitalization she did have low hemoglobin but no signs or symptoms of bleeding and FOBT negative. Her hemoglobin was stable and this felt to be chronic in nature. Blood pressure somewhat low but suspect this is due to her heart failure. Jardiance and spironolactone were held and she was continued on Coreg 3.125 mg twice daily, lisinopril 2.5 mg daily, Lasix 20 mg daily and tolerated this well. Can have further adjustments on an outpatient basis. On day of discharge feeling well, diarrhea improved, no other acute complaints. She completed her antibiotics course for pneumonia. DISCHARGE INSTRUCTIONS PLEASE READ -You have had several medication changes, he will be taking Coreg 3.125 mg twice daily, lisinopril 2.5 mg daily, Lasix 20 mg daily. -You will stop your losartan and your metoprolol -Due to your low blood pressure your gabapentin 300 mg 3 times daily has been held, this can be restarted on an outpatient basis as blood pressure improves -Your blood glucose for your age was reasonable without medication, would advise holding your Amaryl as this will increase risk of hypoglycemia -Would recommend lab work (BMP) to check your kidney function in 2 to 3 days through your primary care physician's office. Please call their office upon discharge to obtain order for lab work. -You will need to follow-up with cardiology upon discharge, please call the office upon discharge to schedule your hospital follow-up appointment ( [phone]) -Weigh yourself every day. A sudden weight gain can mean you are retaining fluid. Weigh yourself at the same time of day and in the same kind of clothes. Ideally, weigh yourself first thing in the morning after you empty your bladder, but before you eat breakfast. -Please call your physician if your weight goes up by more than 2 pounds in 1 day or 5 pounds in 1 week. This can be a sign that you are retaining more fluid than you should be. -You will need a follow-up CT scan in 3 months to evaluate nodule seen on your imaging -Additionally you have a 1.3 cm asymmetrical density in the anterior left breast and you will need an outpatient diagnostic mammogram for this- It is strongly advised that you refrain from any substance use. -Please call your primary care provider's office upon discharge to schedule a hospital follow up within 1 week. -For any concerning signs or symptoms please call 911 or proceed to the nearest emergency department Physical Exam Narrative General: Awake, alert, no acute distress HEENT: Atraumatic, normocephalic Eyes: Anicteric, normal conjunctiva, extraocular movements grossly intact Neck: Supple Respiratory: Slightly diminished at the bases, normal respiratory effort Cardiovascular: Regular rate GI: Soft, nontender, nondistended Extremities: No significant edema Musculoskeletal: Moving all extremities Neuro: No overt focal neurological deficits Skin: No rashes appreciated Psych: Cooperative Weight / BMI Weight Weight: 82.2 kg Body Mass Index (BMI) 30.1 ABG / Lab / Microbiology Data Result Diagrams: 02/25/23 08:00 02/25/23 05:38 Laboratory: Laboratory Results - last 24 hr 02/25/23 05:38: Sodium 142, Potassium 4.3, Chloride 106, Carbon Dioxide 34.0 H, Anion Gap 2 L, BUN 23 H, Creatinine 0.85, Estim Creat Clear Calc 53.04, Est GFR (MDRD) Af Amer 84, Est GFR (MDRD) Non-Af 69, BUN/Creatinine Ratio 27.0 H, Glucose 106, Calcium 8.7, Total Bilirubin 0.40, AST 20, ALT 23, Alkaline Phosphatase 69, Total Protein 7.1, Albumin 2.6 L, Globulin 4.5 H, Albumin/Globulin Ratio 0.6 L 02/25/23 08:00: WBC 5.1, RBC 3.46 L, Hgb 9.5 L, Hct 34.0 L, MCV 98.3, MCH 27.5, MCHC 27.9 L, RDW Std Deviation 52.0 H, RDW Coeff of Amanda 14.5, Plt Count 146 L, MPV 8.7, Immature Gran % (Auto) 0.400, Neut % (Auto) 79.1 H, Lymph % (Auto) 14.7 L, Hughes % (Auto) 4.4, Eos % (Auto) 1.2, Baso % (Auto) 0.2, Absolute Neuts (auto) 4.0, Absolute Lymphs (auto) 0.74 L, Nucleated RBC % 0 Microbiology: Microbiology 02/25/23 10:00 Nasal Secretion SARS-CoV-2 Antigen (Rapid) - Final 02/17/23 22:50 Blood Culture (Wb) - Left Forearm Blood Culture - Final No growth in 5 days. 02/17/23 22:28 Blood Culture (Wb) - Anticubital Left Blood Culture - Final No growth in 5 days. 02/20/23 19:10 Sputum, Induced/Lukens Gram Stain - Final 02/20/23 19:10 Sputum, Induced/Lukens Respiratory Culture - Final Presumptive C albicans 02/22/23 05:40 Stool C. difficile DNA Amplification - Final 02/20/23 11:45 Blood Culture (Wb) - Right Hand Blood Culture - Preliminary No growth in 48 hours. 02/22/23 05:40 Stool Stool Occult Blood (TATO) - Final 02/19/23 13:30 Urine Catheter - Barnes Urine Culture - Final Culture exhibits no growth. 02/18/23 00:35 Sputum, Induced/Lukens Gram Stain - Final 02/18/23 00:35 Sputum, Induced/Lukens Respiratory Culture - Final 02/17/23 22:33 Urine Catheter - Barnes Legionella Antigen - Final 02/17/23 22:33 Urine Catheter - Catheter Streptococcus pneumoniae Antigen (M - Final 02/17/23 22:35 Nasal Secretion SARS-CoV-2 & FLU Antigen (Rapid) - Final Meaningful Use Info Meaningful Use Diagnoses (Choose all that apply): CHF CHF DARIUSZ/ARB ordered at discharge?: Yes Documented LVEF (%): 10 Discharge Plan Admission Admit Date/Time: 02/18/23 00:19 Primary Reason for Your Visit: Low oxygen levels Attending Provider: Pratima Jaime Primary Care Provider: Carol Carlisle NP Consulting Providers: Serge Banks ; Ajit Mcgill ; Martín Monique ; Krzysztof Pennington ; Viji Richey MICROBIOLOGY MANAGER ; Rebecca Resendiz ; Thomas Ahumada ; Hernando Padron Instructions Patient Instructions: Coping with Heart Failure, Cardiomyopathy Dc Additional Instructions / Restrictions: DISCHARGE INSTRUCTIONS PLEASE READ -You have had several medication changes, he will be taking Coreg 3.125 mg twice daily, lisinopril 2.5 mg daily, Lasix 20 mg daily. -You will stop your losartan and your metoprolol -Due to your low blood pressure your gabapentin 300 mg 3 times daily has been held, this can be restarted on an outpatient basis as blood pressure improves -Your blood glucose for your age was reasonable without medication, would advise holding your Amaryl as this will increase risk of hypoglycemia -Would recommend lab work ([facility]) to check your kidney function in 2 to 3 days through your primary care physician's office. Please call their office upon discharge to obtain order for lab work. -You will need to follow-up with cardiology upon discharge, please call the office upon discharge to schedule your hospital follow-up appointment ) -Weigh yourself every day. A sudden weight gain can mean you are retaining fluid. Weigh yourself at the same time of day and in the same kind of clothes. Ideally, weigh yourself first thing in the morning after you empty your bladder, but before you eat breakfast. -Please call your physician if your weight goes up by more than 2 pounds in 1 day or 5 pounds in 1 week. This can be a sign that you are retaining more fluid than you should be. -You will need a follow-up CT scan in 3 months to evaluate nodule seen on your imaging -Additionally you have a 1.3 cm asymmetrical density in the anterior left breast and you will need an outpatient diagnostic mammogram for this- It is strongly advised that you refrain from any substance use. -Please call your primary care provider's office upon discharge to schedule a hospital follow up within 1 week. -For any concerning signs or symptoms please call 911 or proceed to the nearest emergency department Discharge Orders/Prescriptions Prescriptions: New furosemide 40 mg Tablet 20 mg PO DAILY 30 Days Qty: 0 0RF ipratropium-albuterol 0.5 mg-3 mg(2.5 mg base)/3 mL Solution For Nebulization 3 ml inhalation Q8H 30 Days Qty: 0 0RF carvedilol 3.125 mg Tablet 3.125 mg PO BID 30 Days Qty: 0 0RF lisinopril 2.5 mg Tablet 2.5 mg PO DAILY 30 Days Qty: 30 0RF Continued bisacodyl 10 mg suppository 10 mg FL DAILY PRN cranberry 400 mg capsule 400 mg PO DAILY Rx Instructions: administer with a meal ferrous sulfate 200 mg (40 mg iron) tablet PO folic acid 1 mg tablet 1 mg PO DAILY glucagon 1 mg kit IM cyanocobalamin (vitamin B-12) 1,000 mcg capsule 1,000 mcg PO DAILY nystatin 100,000 unit/gram cream 1 applic TOPICAL BID omeprazole 20 mg capsule,delayed release(DR/EC) 20 mg PO DAILY simvastatin 10 mg tablet 10 mg PO QHS Changed docusate sodium 100 mg capsule 100 mg PO DAILY PRN (Reason: constipation) Qty: 60 0RF Discontinued glimepiride [Amaryl] 1 mg tablet 1 mg PO DAILY oxycodone 5 mg capsule 5 mg PO Q6H PRN metoprolol succinate 50 mg tablet extended release 24 hr 50 PO DAILY losartan 100 mg tablet 100 mg PO DAILY gabapentin 300 mg capsule 300 mg PO TID Label Comments: TAKE (1) CAPSULE BY MOUTH IN THE MORNING, 2 CAPSULES BY MOUTH EACH EVEING AND 2 CAPSULES BY MOUTH AT BEDTIME Referrals / Follow Up: Miroslava Gonzalez MD [Med Staff - Active Staff] - See Referral Note (You will need to follow-up with cardiology upon discharge, please call the office upon discharge to schedule your hospital follow-up appointment (ph [phone])) Carol Carlisle NP, MICROBIOLOGY MANAGER-C [Primary Care Provider] - Within 1 Week Disposition Disposition (needs filled in before D/C Order can be placed): [facility] Charges/Coding Visit Charges Inpatient E&M: 95076 Disch Hosp >30min
[2023-02-25 11:49] VITALS: BP 103/44; PULSE 79; RESP 18; TEMP 36.3; O2SAT 98
--- NOTE | 2023-02-25 12:20 | CASEMGMT ---
Patient is ready for discharge back to [facility] ([facility]). LILY sent orders via [employer] as well as COVID test. LILY spoke with patient's daughter Cele and notified her of d/c. She is unable to transport patient. LILY called [facility] and spoke with Marina. LILY explained patient will go by wheelchair. LILY then explained patient has [facility] as her primary with [employer]. LILY asked if LILY needs to call [facility] to set up this transport. Marina said no as [facility] is primary. LILY arranged transport for 2p via wheelchair. 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 Plan: d/c back to [facility] under skilled level of care. Physicians transported via wheelchair. Precious HACKETT
--- NOTE | 2023-02-25 12:30 | PHA.DC.MR ---
Pharmacy Service has performed discharge medication reconciliation for this patient upon transfer to [facility]. Home Medications nystatin 100,000 unit/gram topical cream 1 applic topical BID Check with primary doctor 11/24/21 omeprazole 20 mg capsule,delayed release 20 mg PO DAILY Check with primary doctor 11/24/21 simvastatin 10 mg tablet 10 mg PO QHS Check with primary doctor 11/24/21 bisacodyl 10 mg rectal suppository 10 mg MI DAILY PRN 11/11/22 cranberry 400 mg capsule 400 mg PO DAILY 11/11/22 cyanocobalamin (vitamin B-12) 1,000 mcg capsule 1,000 mcg PO DAILY 11/11/22 ferrous sulfate 200 mg (40 mg iron) tablet PO 11/11/22 folic acid 1 mg tablet 1 mg PO DAILY 11/11/22 glucagon 1 mg injection kit mg IM 11/11/22 carvedilol 3.125 mg tablet 3.125 mg PO BID 30 days #0 tabs 02/25/23 docusate sodium 100 mg capsule 100 mg PO DAILY PRN constipation #60 caps 02/25/23 furosemide 40 mg tablet 20 mg PO DAILY 30 days #0 tabs 02/25/23 ipratropium 0.5 mg-albuterol 3 mg (2.5 mg base)/3 mL nebulization soln 3 ml inhalation Q8H 30 days #0 mL 02/25/23 lisinopril 2.5 mg tablet 2.5 mg PO DAILY 30 days #30 tabs 02/25/23 The patient's discharge medication list was reviewed for discrepancies and discrepancies were resolved.
--- NOTE | 2023-02-25 12:47 | NURSING ---
Attempted to call report for pt to be d/c back to [facility]. Got a voicemail. Will try at later time.
--- NOTE | 2023-02-25 13:11 | NURSING ---
Report called to nurse Cruz for pt to be d/c back to [facility].
[2023-02-25 13:27] VITALS: PULSE 89; RESP 20
== END 2023-02-25 14:06 | DRG 208 ==
LOC: ED 02-18 00:07 → ICU 02-18 07:11 → PCU 02-22 15:22
PROVIDERS: Internal Medicine; Admitting Provider Internal Medicine; Emergency Provider Emergency Medicine; PCP Nurse Practitioner Family; Visit Provider Internal Medicine
DX: J96.21 Acute and chronic respiratory failure with hypoxia (principal); I50.23 Acute on chronic systolic (congestive) heart failure; G93.41 Metabolic encephalopathy; J18.9 Pneumonia, unspecified organism; S12.500A Unspecified displaced fracture of sixth cervical vertebra, initial encounter for closed fracture; I42.9 Cardiomyopathy, unspecified; J44.0 Chronic obstructive pulmonary disease with (acute) lower respiratory infection; J90 Pleural effusion, not elsewhere classified; E87.29 Other acidosis; E27.8 Other specified disorders of adrenal gland; D69.6 Thrombocytopenia, unspecified; J96.22 Acute and chronic respiratory failure with hypercapnia; I11.0 Hypertensive heart disease with heart failure; E11.40 Type 2 diabetes mellitus with diabetic neuropathy, unspecified; E11.65 Type 2 diabetes mellitus with hyperglycemia; E11.42 Type 2 diabetes mellitus with diabetic polyneuropathy; E83.39 Other disorders of phosphorus metabolism; K21.9 Gastro-esophageal reflux disease without esophagitis; G47.33 Obstructive sleep apnea (adult) (pediatric); I25.10 Atherosclerotic heart disease of native coronary artery without angina pectoris; D64.9 Anemia, unspecified; E53.8 Deficiency of other specified B group vitamins; R19.7 Diarrhea, unspecified; E78.5 Hyperlipidemia, unspecified; Z87.891 Personal history of nicotine dependence; Z51.5 Encounter for palliative care; R60.0 Localized edema; Z66 Do not resuscitate; R80.9 Proteinuria, unspecified; R91.8 Other nonspecific abnormal finding of lung field; E66.9 Obesity, unspecified; Z68.33 Body mass index [BMI] 33.0-33.9, adult
CPT/HCPCS: 31500; 31720; 36415; 36600; 70450; 71045; 71250; 76604; 80048; 80053; 80202; 80307; 81001; 82077; 82274; 82550; 82803; 82962; 83735; 83880; 84100; 84145; 84443; 84478; 84484; 85025; 87040; 87070; 87086; 87205; 87426; 87428; 87449; 87493; 87641; 92526; 92610; 93005; 93306; 93970; 94002; 94003; 94640; 94660; 94668; 97110; 97116; 97162; 97163; 97165; 97530; 97535; 97802; 97803; 99252; 99285; J7040; Q9957; A4216; C8929; G0463; J1940; J2405; J7799

== ENCOUNTER → 2023-02-28 | Outpatient (REF) | payer MEDICARE, MEDICAID, SELFPAY ==
[2023-02-28 08:52] LABS: Hematocrit 31.5 % (37-47); Hemoglobin 8.9 g/dL (12.0-15.0); Mean Corp Hgb Conc 28.3 g/dL (32-36); Mean Corpuscular Hgb 27.6 pg (27.0-32.0); Mean Corpuscular Volume 97.5 fL (81-99); Mean Platelet Vol. 9.3 fl (6.2-12.0); Platelet Count 130 K/mm3 (150-450); RBC Distribution Width CV 14.2 % (11.6-14.6); Red Blood Count 3.23 M/mm3 (4.2-5.4); White Blood Count 4.5 K/mm3 (4.4-11.0)
[2023-02-28 09:03] LABS: Anion Gap -1 (5-15); BUN 16 mg/dL (7-18); BUN/Creat Ratio 26.5 RATIO (10-20); Calcium,Total 8.9 mg/dL (8.5-10.1); Chloride 104 mmol/L (98-107); EST Glomerular Filtration Rate 104 mL/min (>60); Est Glom Filt Rate - Afr Amer 125 mL/min (>60); Glucose 150 mg/dL (74-106); Potassium 3.4 mmol/L (3.5-5.1); Sodium Level 144 mmol/L (136-145)
== END ==
LOC: OLS.ACH 05:00
PROVIDERS: PCP Nurse Practitioner Family; Visit Provider Internal Medicine
DX: G93.41 Metabolic encephalopathy (principal); E11.40 Type 2 diabetes mellitus with diabetic neuropathy, unspecified; R94.4 Abnormal results of kidney function studies
CPT/HCPCS: 36415; 80048; 85027

== ENCOUNTER → 2023-03-18 | Outpatient (CLI) | payer MEDICARE, MEDICAID, SELFPAY ==
--- NOTE | 2023-03-18 07:50 | CT_ITS ---
STUDY: CT SOFT TISSUE NECK WITH CONTRAST REASON FOR EXAM: Female, 72 years old. NECK MASS right posterior neck, prior c-spine surgery, left breast cancer-left lumpectomy, radiation, diabetes. RADIATION DOSAGE (If Supplied By Facility): CTDIvol = ( 16.78 ) mGy, DLP = ( 557.64 ) mGycm TECHNIQUE: The patient was scanned in a multi-detector CT scanner. High resolution transaxial imaging was performed following intravenous administration of IV 100mL Isovue-370. Sagittal and coronal images were reconstructed. Individualized dose optimization techniques were used for this CT. COMPARISON: None. FINDINGS: Normal bilateral parotid glands. Normal bilateral company manager spaces. Normal bilateral parapharyngeal spaces. Normal bilateral carotid spaces. Normal bilateral sublingual and submandibular glands and spaces. Normal visualized nasopharynx. Normal retropharyngeal space. Normal perivertebral space. Normal visualized bilateral faucial tonsils. The visualized tongue, tongue base and oropharynx are normal. The visualized cervical lymph nodes (levels I-) are within normal size limits, and maintain normal morphology. There is no demonstrated solid or cystic mass lesion. There is no abnormal contrast enhancement. Normal epiglottis, bilateral vallecula and hypopharynx. The pre-epiglottic and paraglottic adipose spaces are normal. Normal visualized bilateral piriform sinuses, aryepiglottic folds, vocal cords, and arytenoid-cricoid articulations. Normal subglottic trachea. Mild heterogeneous enlargement of the left lobe of the thyroid gland. Focal calcification is seen in the lower pole. Subcentimeter cyst in the right mid lobe of the thyroid gland. Normal visualized pulmonary apices. Normal visualized paranasal sinuses. The patient is status post laminectomy and intrapedicle screw merari fixation from the C3 vertebrae down to the T3 vertebral level. CT/Soft Tissue Neck WITH Contrast IMPRESSION: No masses seen. Status post multilevel fusion from the C3 to the T3 level. Heterogeneous enlargement of the thyroid worse on the left side. Electronically Signed: Thomas Ahumada MD at 12:45 EDT ,
--- NOTE | 2023-03-18 09:30 | BI_ITS ---
MAMMOGRAPHY - BILATERAL DIAGNOSTIC REASON FOR EXAM: Female, 72 years old. Left breast lump. PERTINENT HISTORY: Personal history of breast cancer. Prior right mastectomy. TECHNIQUE: Digital bilateral breast dario (3D mammographic acquisition) in the CC and MLO projections. 2-D mediolateral oblique (MLO) and craniocaudad (CC) views of both breasts were obtained. CAD: Full Field Digital Mammography with Computer Added Detection was performed. COMPARISON: None. FINDINGS: Breast Composition: The breasts are heterogeneously dense, which may obscure small masses. The patient is status post lumpectomy with resultant postoperative scarring in the deep upper central portion of the left breast. There is overlying skin thickening. Surgical clips are seen at the surgical site. There is evidence of a 1.3 cm x 0.9 cm well-defined nodule in the retroareolar region of the left breast. Correlation with ultrasound is recommended. No other significant abnormalities are identified. BI/DIAG MAMM W/CAD, BILAT IMPRESSION: 1.3 cm x 0.9 cm well-defined nodule in the retroareolar region of the left breast. Correlation with ultrasound is recommended. ASSESSMENT CATEGORY: BIRADS Category 0: Incomplete. Need additional imaging evaluation. A letter regarding these results will be sent to the patient by the facility within 30 days. Approximately 10% of breast cancers are not detected by mammography. A normal mammogram should not delay biopsy of a clinically suspicious abnormality. Electronically Signed: Thomas Ahumada MD at 10:21 EDT ,
--- NOTE | 2023-03-18 09:30 | US_ITS ---
STUDY: ULTRASOUND BREAST - LEFT REASON FOR EXAM: Female, 72 years old. Palpable lump left breast. TECHNIQUE: Axial and longitudinal images of the LEFT breast were performed with a high resolution ultrasound transducer. # OF IMAGES: 15 COMPARISON: Comparison is made with prior mammogram done earlier in today. FINDINGS: LEFT Breast: The mammographic abnormality corresponds to a 1.3 cm x 1.4 cm x 0.9 cm hypoechoic lobulated solid nodule at the 11:00 position of the breast at 2 cm from the nipple. Increased blood flow is seen. Biopsy recommended. US/Breast Limited Unilateral IMPRESSION: The mammographic abnormality corresponds to a 1.3 cm x 1.4 cm x 0.9 cm hypoechoic lobulated solid nodule at the 11:00 position of the breast at 2 cm from nipple. Biopsy recommended. ASSESSMENT CATEGORY: BIRADS Category 4: Suspicious - Biopsy Should Be Considered. A letter regarding these results will be sent to the patient by the facility within 30 days. Electronically Signed: Thomas Ahumada MD at 15:22 EDT ,
== END | disposition home or self-care (01) ==
PROVIDERS: PCP Nurse Practitioner Family
DX: R59.0 Localized enlarged lymph nodes (principal); R92.8 Other abnormal and inconclusive findings on diagnostic imaging of breast
CPT/HCPCS: 70491; 76642; 77066; Q9967; A4216

== ENCOUNTER → 2023-03-28 | Outpatient (REF) | payer MEDICARE, MEDICAID, SELFPAY ==
[2023-03-28 09:12] LABS: Hemoglobin 9.5 g/dL (12.0-15.0); Mean Corp Hgb Conc 27.9 g/dL (32-36); Mean Corpuscular Hgb 28.1 pg (27.0-32.0); Mean Corpuscular Volume 100.6 fL (81-99); Mean Platelet Vol. 9.3 fl (6.2-12.0); Platelet Count 116 K/mm3 (150-450); RBC Distribution Width CV 14.7 % (11.6-14.6); Red Blood Count 3.38 M/mm3 (4.2-5.4); White Blood Count 4.3 K/mm3 (4.4-11.0)
== END ==
LOC: OLS.ACH 05:00
PROVIDERS: PCP Nurse Practitioner Family; Visit Provider Internal Medicine
DX: I10 Essential (primary) hypertension (principal); D50.9 Iron deficiency anemia, unspecified
CPT/HCPCS: 36415; 85027

== ENCOUNTER → 2023-04-04 | Outpatient (CLI) | payer MEDICARE, MEDICAID, SELFPAY ==
--- NOTE | 2023-04-04 | BRBX_PTH ---
PATIENT: POLI CROOKS LOC: [facility] U#:[id number] AGE/SX: 72/F ROOM: RE04/04/[address]: Dr. Sharmila Jackson MD : 1950 BED: DIS: 04/04/2023 SPEC #: [id number] RECD: 04/04/23 16:39 STATUS: MEDINA FLORIAN #: [id number] JOIE: 04/04/23 00:[address]: Sharmila Jackson DEPT: SURGICAL PATHOLOGY RECD BY: Paris Katz ENTERED: 04/05/23 07:46 SP TYPE: BREAST BX DANYA DR: Carol Carlisle, ARLENE Tissues: Left breast, NOS Procedures: Surgery Specimen Level IV HEADER OPERATION: Left breast nodule biopsy PRE-OP DIAGNOSIS: Left breast nodule TISSUE SUBMITTED: Left breast nodule tissue 11 o?clock, 2.0 cm from nipple MICROSCOPIC DIAGNOSIS Left breast nodule tissue, 11 o?clock, 2.0 cm from nipple, core biopsy: Consistent with hyalinized fibrous nodule. Negative for atypia or malignancy. See comment. PATT:ayleen 04/06/2023 COMMENT The findings may represent hyalinized fibroadenoma. Correlation with clinical, radiologic findings and appropriate follow up are necessary. MICROSCOPIC DESCRIPTION Slides are reviewed. GROSS DESCRIPTION Received in fixative is one container labeled with the patient's name and designated left breast. The specimen consists of multiple elongated fragments of allen-yellow fibroadipose tissue that in aggregate measure 1.0 x 0.6 x 0.1 cm. The entire specimen is submitted in one cassette. / PATT:ayleen 04/05/2023 TC:5 [facility]: [id number]
== END | disposition home or self-care (01) ==
LOC: LABSPEC 16:48
PROVIDERS: PCP Nurse Practitioner Family; Referring Provider Surgery; Visit Provider Surgery
DX: N63.20 Unspecified lump in the left breast, unspecified quadrant (principal)
CPT/HCPCS: 88305

== ENCOUNTER → 2023-04-12 | Outpatient (REF) | payer MEDICARE, MEDICAID, SELFPAY ==
[2023-04-12 09:34] LABS: Bacteria 0 SEEN /hpf (None Seen); Mucous, Urine 0 SEEN /hpf (<or=2+)
[2023-04-12 09:44] LABS: Color, Urine Yellow (Yellow); Glucose, Dipstick Normal (Normal); Ketone-Dipstick Negative (Negative); Leukocyte Esterase-Dipstick 25 /ul (Negative); Nitrite-Dipstick Negative (Negative); Occult Blood-Urine Negative /ul (Negative); Protein-Dipstick Negative (Negative); Urine Bilirubin Dipstick Negative (Negative); Urine Clarity Clear (Clear); Urine Urobilinogen Normal (Normal)
[2023-04-12 09:47] LABS: Hematocrit 31.5 % (37-47); Hemoglobin 8.9 g/dL (12.0-15.0); Mean Corp Hgb Conc 28.3 g/dL (32-36); Mean Corpuscular Hgb 28.2 pg (27.0-32.0); Mean Corpuscular Volume 99.7 fL (81-99); Mean Platelet Vol. 9.1 fl (6.2-12.0); Platelet Count 115 K/mm3 (150-450); RBC Distribution Width CV 14.5 % (11.6-14.6); Red Blood Count 3.16 M/mm3 (4.2-5.4); White Blood Count 5.1 K/mm3 (4.4-11.0)
[2023-04-12 10:02] LABS: ALB/GLOB Ratio 0.7 RATIO (0.9-2.4); AST(SGOT) 14 U/L (15-37); Alanine Aminotransfer ALT/SGPT 20 U/L (13-56); Albumin, Serum 2.8 g/dL (3.2-5.0); Alkaline Phosphatase 83 U/L (45-117); Anion Gap 1 (5-15); BUN 23 mg/dL (7-18); BUN/Creat Ratio 34.6 RATIO (10-20); Chloride 102 mmol/L (98-107); Creatinine, Serum 0.66 mg/dL (0.55-1.02); EST Glomerular Filtration Rate 93 mL/min (>60); Est Glom Filt Rate - Afr Amer 112 mL/min (>60); Globulin 4.1 g/dL (2.2-4.2); Glucose 122 mg/dL (74-106); Potassium 3.7 mmol/L (3.5-5.1); Protein, Total 6.9 g/dL (6.4-8.2); Sodium Level 145 mmol/L (136-145)
[2023-04-12 10:02] LABS: Red Blood Cells-Urine 0-5 SEEN /hpf (0-5); Squamous Epithelial Cells - UA 0-5 SEEN /hpf (5-10); White Blood Cells 0-5 SEEN /hpf (0-5)
== END ==
LOC: OLS.ACH 05:00
PROVIDERS: PCP Nurse Practitioner Family; Visit Provider Internal Medicine
DX: R10.30 Lower abdominal pain, unspecified (principal)
CPT/HCPCS: 36415; 80053; 81001; 85027; 87077; 87086; 87088; 87186

== ENCOUNTER 2023-04-19 16:39 | Emergency (ER) | payer MEDICARE, MEDICAID, SELFPAY ==
[2023-04-19] VITALS (8 sets, daily range): BP systolic 112–136; BP diastolic 49–71; PULSE 82–88; RESP 17–20; TEMP 36.2–36.5; O2SAT 95–100; BMI 31.8
--- NOTE | 2023-04-19 17:38 | CT_ITS ---
STUDY: CT Abdomen And Pelvis W/ Contrast Injection 04/19/2023 6:49 PM REASON FOR EXAM: Female, 72 years old. Abdominal pain llq abdominal pain Individualized dose optimization techniques were used for this CT. COMPARISON: ct chest 02.18.23. TECHNIQUE: CT Abdomen And Pelvis W/ Contrast Injection IV 100mL Isovue-370 FINDINGS: There are atherosclerotic calcifications of visualized coronary arteries. The visualized portions of the heart are within normal limits. Two left breast nodules which have internal mammo clips. Normal liver. There is non-visualization of the gallbladder, which may be secondary to either contraction or a prior cholecystectomy. Multiple hypodense lesions in the spleen. There is diffuse atrophy of the pancreas. 29m left adrenal mass. This is 100 HU. ACR White Paper guidelines (Bailey, et al. JACR 2017; 14(8):7987-2438) recommend a low dose, non-contrast adrenal CT or chemical-shift adrenal MRI follow-up study. There is a 14mm dense nodule in the right kidney. This has a peripheral calcification. It is 63 hu. ACR White Paper guidelines (Herts, et al. JACR 2018; 15(2):264-273) recommend MRI or CT without and with intravenous contrast. Non obstructive 2 mm left renal parenchymal stones. There are hypodensities in the left kidney. These are consistent for cysts. No follow up required. Normal visualized stomach. Normal small intestine. There are multiple colonic diverticula consistent with diverticulosis. There is non-visualization of the appendix. Diffuse inflammation and wall thickening of the sigmoid colon suggesting a colitis. There are calcifications of the abdominal aorta. This is consistent for atherosclerotic disease. There is NO abdominal aortic aneurysm. Vascular workup can be obtained based on clinical correlation. Normal inferior vena cava. Subcentimeter mesenteric lymph nodes. Normal urinary bladder. There is an umbilical hernia containing fat. There are diffuse degenerative changes of the visualized lumbar spine. CT/Abdomen/Pelvis W IV Cont ONLY IMPRESSION: (NOT LISTED IN ORDER OF SIGNIFICANCE) Diffuse inflammation and wall thickening of the sigmoid colon suggesting a colitis. Multiple hypodense lesions in the spleen. ACR White Paper guidelines (Heller, et al. JACR 2013; 10(11):833-9) suggest a follow-up abdominal MRI in 6-12 months. There is a 14mm dense nodule in the right kidney. This is 63 hu. ACR White Paper guidelines (Herts, et al. JACR 2018; 15(2):264-273) recommend MRI or CT without and with intravenous contrast. Non obstructive 2 mm left renal parenchymal stones. 29m left adrenal mass. This is 100 HU. ACR White Paper guidelines (Bailey, et al. JACR 2017; 14(8):3801-6788) recommend a low dose, non-contrast adrenal CT or chemical-shift adrenal MRI follow-up study. Other findings as above. Electronically Signed: Edward Gamboa MD at 18:58 EDT ,
[2023-04-19 17:54] LABS: Absolute Lymphocyte Count 0.71 X10^3/uL (0.83-4.51); Absolute Neutrophil Count 5.2 X10^3/uL (2.0-7.7); Basophil# 0.01 X10^3/uL; Basophil% 0.2 % (0-1); Eosinophil# 0.06 X10^3/uL; Eosinophils% 0.9 % (0-5); Hemoglobin 9.6 g/dL (12.0-15.0); Lymphocyte # 0.71 X10^3/ul (0.83-4.51); Lymphocyte % 11.2 % (19-41); Mean Corp Hgb Conc 29.1 g/dL (32-36); Mean Corpuscular Hgb 28.7 pg (27.0-32.0); Mean Corpuscular Volume 98.5 fL (81-99); Mean Platelet Vol. 9.5 fl (6.2-12.0); Monocyte# 0.35 X10^3/uL; Monocyte% 5.5 % (0-10); NRBC Flagged by Analyzer 0 % (0-5); Neutrophil # 5.17 X10^3/uL (2.7-7.7); Neutrophil % 81.7 % (47-70); Platelet Count 103 K/mm3 (150-450); RBC Distribution Width CV 14.2 % (11.6-14.6); RBC Distribution Width SD 50.7 fl (35.1-43.9); Red Blood Count 3.35 M/mm3 (4.2-5.4); White Blood Count 6.3 K/mm3 (4.4-11.0)
[2023-04-19] MEDS: Ondansetron 4 MG/2 ML Vial IV (18:05)
[2023-04-19] MEDS: Morphine 4 MG/ML Syringe IV (18:05)
[2023-04-19 18:08] LABS: ALB/GLOB Ratio 0.7 RATIO (0.9-2.4); AST(SGOT) 16 U/L (15-37); Alanine Aminotransfer ALT/SGPT 21 U/L (13-56); Albumin, Serum 3.1 g/dL (3.2-5.0); Alkaline Phosphatase 96 U/L (45-117); Anion Gap 3 (5-15); BUN 23 mg/dL (7-18); BUN/Creat Ratio 36.2 RATIO (10-20); Calcium,Total 9.3 mg/dL (8.5-10.1); Chloride 102 mmol/L (98-107); Creatinine, Serum 0.64 mg/dL (0.55-1.02); EST Glomerular Filtration Rate 97 mL/min (>60); Est Glom Filt Rate - Afr Amer 118 mL/min (>60); Estimated Creatinine Clearance 45.09 ml/min; Globulin 4.6 g/dL (2.2-4.2); Glucose 108 mg/dL (74-106); Potassium 3.9 mmol/L (3.5-5.1); Protein, Total 7.7 g/dL (6.4-8.2); Sodium Level 146 mmol/L (136-145)
--- NOTE | 2023-04-19 18:12 | ED.VIS.GI ---
HPI HPI - GI History of Present Illness Chief Complaint: Abd Pain Narrative Narrative: 72-year-old female presenting with left lower quadrant abdominal pain. She states this has been present off and on for weeks. She states that the long-term she is at she gets Tylenol for this and it goes away but over the last few days the Tylenol is not helping. She has nausea without vomiting. She denies constipation. She states she has loose stools its not quite diarrhea. No black or bloody stools. She states that at times there is right-sided abdominal pain. She has not had a fever at home. 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 Chronic respiratory failure with hypoxia COPD (chronic obstructive pulmonary disease) Dysphagia Essential hypertension GERD (gastroesophageal reflux disease) History of falling Insomnia, unspecified Iron deficiency anemia Lung nodules Muscle weakness (generalized) Myocardial infarction Obstructive sleep apnea On mechanically assisted ventilation Other displaced fracture of seventh cervical vertebra, subsequent encounter for fracture with routine healing Other displaced fracture of sixth cervical vertebra, subsequent encounter for fracture with routine healing Other lack of coordination Other pancytopenia Personal history of malignant neoplasm of breast Personal history of nicotine dependence Pneumonia Primary osteoarthritis, left shoulder Primary osteoarthritis, right shoulder Pure hypercholesterolemia Respiratory failure with hypoxia Thrombocytopenia Type 2 diabetes mellitus with diabetic neuropathy Unspecified abnormalities of gait and mobility Urinary incontinence Venous insufficiency Venous insufficiency (chronic) (peripheral) Vitamin B12 deficiency Home Medications nystatin 100,000 unit/gram topical cream 1 applic topical BID Check with primary doctor 11/24/21 [History Last Taken Unknown] omeprazole 20 mg capsule,delayed release 20 mg PO DAILY ACID REFLUX 11/24/21 [History Last Taken Unknown] simvastatin 10 mg tablet 10 mg PO QHS CHOLESTEROL 11/24/21 [History Last Taken Unknown] bisacodyl 10 mg rectal suppository 10 mg WA DAILY PRN 11/11/22 [History Last Taken Unknown] cranberry 400 mg capsule 400 mg PO DAILY SUPPLEMENT 11/11/22 [History Last Taken Unknown] cyanocobalamin (vitamin B-12) 1,000 mcg capsule 1,000 mcg PO DAILY SUPPLEMENT 11/11/22 [History Last Taken Unknown] folic acid 1 mg tablet 1 mg PO DAILY SUPPLEMENT 11/11/22 [History Last Taken Unknown] glucagon 1 mg injection kit mg IM 11/11/22 [History Last Taken Unknown] docusate sodium 100 mg capsule 100 mg PO DAILY PRN constipation #60 caps 02/25/23 [Rx Last Taken Unknown] ipratropium 0.5 mg-albuterol 3 mg (2.5 mg base)/3 mL nebulization soln 3 ml inhalation Q8H 30 days #0 mL 02/25/23 [Rx Last Taken Unknown] acetaminophen 325 mg tablet 325 mg PO DAILY PAIN 04/19/23 [History Last Taken Unknown] carvedilol 3.125 mg tablet 3.125 mg PO BID HEART 04/19/23 [History Last Taken Unknown] ciprofloxacin HCl 500 mg tablet 500 mg PO BID #14 TABLETS 04/19/23 [Rx Last Taken Unknown] furosemide 40 mg tablet 20 mg PO DAILY FLUID 04/19/23 [History Last Taken Unknown] gabapentin 100 mg capsule 100 mg PO TID NERVE PAIN 04/19/23 [History Last Taken Unknown] glimepiride 4 mg tablet 1 mg PO DAILY DIABETES 04/19/23 [History Last Taken Unknown] lisinopril 2.5 mg tablet 2.5 mg PO DAILY BLOOD PRESSURE 04/19/23 [History Last Taken Unknown] metronidazole 500 mg tablet 500 mg PO Q8H 7 days #21 tabs 04/19/23 [Rx Last Taken Unknown] nitrofurantoin monohydrate/macrocrystals 100 mg capsule (Macrobid) 100 mg PO BID UTI 04/19/23 [History Last Taken Unknown] ondansetron 4 mg disintegrating tablet 4 mg PO Q8H PRN PRN Nausea #14 tabs 04/19/23 [Rx Last Taken Unknown] potassium chloride 20 mEq tablet,extended release(part/cryst) 20 meq PO DAILY SUPPLEMENT 04/19/23 [History Last Taken Unknown] Allergy/AdvReac Type Severity Reaction Status Date / Time cyclobenzaprine Allergy Other Verified 04/19/23 16:41 [From Flexeril] tizanidine [From Zanaflex] Allergy Other Verified 04/19/23 16:41 Family History Sister Breast cancer Grandmother Diabetes Surgical History History of lumpectomy of left breast Hx of cervical spine surgery Hx of cholecystectomy Social History housing: long-term Smoking Status: Former smoker alcohol intake: never substance use type: does not use ROS ROS ED Constitutional Constitutional ED: Denies chills, fever(s) or sweats Eyes Eyes: Denies blurry vision or change in vision ENT ENT ED: Denies ear pain or sore throat Cardiovascular Cardiovascular: Denies chest pain, palpitations or racing heartbeat Respiratory/Chest Respiratory/Chest: Denies cough, dyspnea or sputum Gastrointestinal Gastrointestinal: Reports abdominal pain, diarrhea and nausea; Denies constipation or vomiting Genitourinary Genitourinary ED: Denies dysuria, hematuria or urinary frequency Musculoskeletal Musculoskeletal: Denies arthralgias, myalgias or neck pain Integumentary Denies abscess, Abrasions or rash Neurologic Neurologic: Denies headache(s), paresthesias or weakness Psychiatric Psychiatric: Denies anxiety, depression, suicidal ideation or suicidal thoughts Endocrine Endocrinology: Denies polydipsia or polyuria EXAM Physical Exam Const Vital Signs: 04/19/23 16:41 04/19/23 16:45 04/19/23 17:45 Temperature 97.1 F L 97.1 F L 97.7 F L Temperature Source Temporal Temporal Temporal Pulse Rate 83 84 86 Respiratory Rate 17 17 19 H Blood Pressure 136/71 H 136/71 H 116/69 Blood Pressure Mean 92 92 84 Pulse Ox 95 99 100 Oxygen Delivery Method Nasal Cannula Nasal Cannula Nasal Cannula Oxygen Flow Rate (L/min) 2 2 2 04/19/23 18:00 04/19/23 18:40 04/19/23 19:00 Temperature 97.7 F L 97.7 F L Temperature Source Temporal Temporal Pulse Rate 84 84 82 Respiratory Rate 20 H 18 Blood Pressure 112/49 L 126/66 H Blood Pressure Mean 70 86 Pulse Ox 100 100 Oxygen Delivery Method Nasal Cannula Nasal Cannula Oxygen Flow Rate (L/min) 2 2 Positive well nourished and obese General Appearance ED: NAD; Negative for pallor Nutritional Appearance: obese HEENT Reports moist mucous membranes Eyes PERRL and EOMs intact bilaterally Neck no lymphadenopathy Resp normal respiratory effort and clear to auscultation bilaterally Auscultation: Negative for rales, rhonchi or wheezes Cardio regular rate and regular rhythm GI Palpation: tender LLQ and periumbilical Neuro CN's II-XII intact bilaterally and moves all extremities Sensorium / Orientation: alert Motor Exam: strength 5/5 throughout Psych mental status grossly normal and thought process normal Skin no wounds General Skin Exam: Negative for jaundice or pallor MDM MDM MDM Narrative Medical decision making narrative: 72-year-old female presenting with abdominal pain for weeks. She states is worse. She states Tylenol was helping and now it does not. Differential includes but is not limited to diverticulitis, colitis, small bowel obstruction, UTI, pyelonephritis, kidney stone, malignancy. CBC to assess white blood cell count, hemoglobin, platelets, differential. CMP to assess liver function, renal function, electrolytes, glucose, anion gap. Urinalysis to assess for UTI. IV line was established. Patient medicated with morphine and Zofran. Blood work reviewed and she does not have a leukocytosis. Hemoglobin stable at 9.6. This is near her baseline. Creatinine is normal. There is some prerenal azotemia however. Electrolytes unremarkable. Liver function normal. Urinalysis negative for infection. CT of the abdomen pelvis with IV contrast was obtained and shows what appears to be a sigmoid colitis. There is also noted splenic hypodensities and a left-sided adrenal mass. Recommendation was for follow-up in the future with MRI. This was discussed with the on-call physician for the long-term. They wish to have the patient started on Cipro and Flagyl for home. She is also given Zofran. They will take care of pain medication if she needs it. Patient counseled on all findings. All questions were answered. She is discharged home in stable condition. Impression: 1. Abdominal pain 2. Colitis 3. Splenic hypodensities 4. Left-sided adrenal mass Lab Data Attestation: I reviewed the patient's lab results. Labs: Laboratory Results - last 24 hr 04/19/23 04/19/23 04/19/23 16:53 16:53 19:08 WBC 6.3 RBC 3.35 L Hgb 9.6 L Hct 33.0 L MCV 98.5 MCH 28.7 MCHC 29.1 L RDW Std Deviation 50.7 H RDW Coeff of Amanda 14.2 Plt Count 103 L MPV 9.5 Immature Gran % (Auto) 0.500 Neut % (Auto) 81.7 H Lymph % (Auto) 11.2 L Bourbon % (Auto) 5.5 Eos % (Auto) 0.9 Baso % (Auto) 0.2 Absolute Neuts (auto) 5.2 Absolute Lymphs (auto) 0.71 L Nucleated RBC % 0 Sodium 146 H Potassium 3.9 Chloride 102 Carbon Dioxide 41.0 H Anion Gap 3 L BUN 23 H Creatinine 0.64 Estim Creat Clear Calc 45.09 Est GFR (MDRD) Af Amer 118 Est GFR (MDRD) Non-Af 97 BUN/Creatinine Ratio 36.2 H Glucose 108 H Calcium 9.3 Total Bilirubin 0.40 AST 16 ALT 21 Alkaline Phosphatase 96 Total Protein 7.7 Albumin 3.1 L Globulin 4.6 H Albumin/Globulin Ratio 0.7 L Urine Color Yellow Urine Clarity Clear Urine pH 6.5 Ur Specific Mullin 1.010 Urine Protein Negative Urine Glucose (UA) Normal Urine Ketones Negative Urine Occult Blood Negative Urine Nitrite Negative Urine Bilirubin Negative Urine Urobilinogen Normal Ur Leukocyte Esterase Negative Urine RBC 0 SEEN Urine WBC 0 SEEN Ur Squamous Epith Cells 0 SEEN Urine Bacteria 0 SEEN Urine Mucus 0 SEEN Radiography Diagnostic Testing: Clinical Impression(s) from Imaging Studies Abdomen/Pelvis CT 04/19/23 17:38 IMPRESSION: (NOT LISTED IN ORDER OF SIGNIFICANCE) Diffuse inflammation and wall thickening of the sigmoid colon suggesting a colitis. Multiple hypodense lesions in the spleen. ACR White Paper guidelines (Heltosha, et al. JACR 2013; 10(11):833-9) suggest a follow-up abdominal MRI in 6-12 months. There is a 14mm dense nodule in the right kidney. This is 63 hu. ACR White Paper guidelines (Herts, et al. JACR 2018; 15(2):264-273) recommend MRI or CT without and with intravenous contrast. Non obstructive 2 mm left renal parenchymal stones. 29m left adrenal mass. This is 100 HU. ACR White Paper guidelines (Bailey, et al. JACR 2017; 14(8):5660-1088) recommend a low dose, non-contrast adrenal CT or chemical-shift adrenal MRI follow-up study. Other findings as above. Electronically Signed: Edward Gamboa MD at 18:58 EDT , Discharge Plan Triage Chief Complaint: Abd Pain ED Provider: Alexandru Vela Dx/Rx/DC Orders Instructions: ED Understanding Colitis Prescriptions: New ciprofloxacin HCl 500 mg tablet 500 mg PO BID Qty: 14 0RF metronidazole 500 mg tablet 500 mg PO Q8H 7 Days Qty: 21 0RF ondansetron 4 mg tablet,disintegrating 4 mg PO Q8H PRN PRN (Reason: Nausea) Qty: 14 0RF No Action bisacodyl 10 mg suppository 10 mg WA DAILY PRN cranberry 400 mg capsule 400 mg PO DAILY folic acid 1 mg tablet 1 mg PO DAILY glucagon 1 mg kit IM cyanocobalamin (vitamin B-12) 1,000 mcg capsule 1,000 mcg PO DAILY nystatin 100,000 unit/gram cream 1 applic TOPICAL BID omeprazole 20 mg capsule,delayed release(DR/EC) 20 mg PO DAILY simvastatin 10 mg tablet 10 mg PO QHS ipratropium-albuterol 0.5 mg-3 mg(2.5 mg base)/3 mL Solution For Nebulization 3 ml inhalation Q8H 30 Days Qty: 0 0RF docusate sodium 100 mg capsule 100 mg PO DAILY PRN (Reason: constipation) Qty: 60 0RF acetaminophen 325 mg Tablet 325 mg PO DAILY potassium chloride 20 mEq tablet,ER particles/crystals 20 meq PO DAILY glimepiride 4 mg tablet 1 mg PO DAILY gabapentin 100 mg capsule 100 mg PO TID nitrofurantoin monohyd/m-cryst [Macrobid] 100 mg Capsule 100 mg PO BID furosemide 40 mg tablet 20 mg PO DAILY carvedilol 3.125 mg tablet 3.125 mg PO BID lisinopril 2.5 mg tablet 2.5 mg PO DAILY Primary Care Provider: Jonathan Dillard Referrals: Jonathan Dillard MD [Primary Care Provider] - Disposition Disposition: Home, Self Care
[2023-04-19 19:11] LABS: Bacteria 0 SEEN /hpf (None Seen); Mucous, Urine 0 SEEN /hpf (<or=2+); Red Blood Cells-Urine 0 SEEN /hpf (0-5); Squamous Epithelial Cells - UA 0 SEEN /hpf (5-10); White Blood Cells 0 SEEN /hpf (0-5)
[2023-04-19 19:12] LABS: Color, Urine Yellow (Yellow); Glucose, Dipstick Normal (Normal); Ketone-Dipstick Negative (Negative); Leukocyte Esterase-Dipstick Negative /ul (Negative); Nitrite-Dipstick Negative (Negative); Occult Blood-Urine Negative /ul (Negative); Protein-Dipstick Negative (Negative); Urine Bilirubin Dipstick Negative (Negative); Urine Clarity Clear (Clear); Urine Urobilinogen Normal (Normal); Urine pH 6.5 (5.0 - 8.0)
[2023-04-19] MEDS: Ciprofloxacin 500 MG Tablet PO (20:29)
[2023-04-19] MEDS: metroNIDAZOLE 500 MG Tablet PO (20:29)
== END 2023-04-19 22:15 | disposition home or self-care (01) ==
PROVIDERS: Emergency Provider Student in an Organized Health Care Education/Training Program; PCP Internal Medicine; Visit Provider Student in an Organized Health Care Education/Training Program
DX: K52.9 Noninfective gastroenteritis and colitis, unspecified (principal); J44.9 Chronic obstructive pulmonary disease, unspecified; E11.40 Type 2 diabetes mellitus with diabetic neuropathy, unspecified; E27.9 Disorder of adrenal gland, unspecified; Z87.891 Personal history of nicotine dependence; I25.10 Atherosclerotic heart disease of native coronary artery without angina pectoris; E78.00 Pure hypercholesterolemia, unspecified; I10 Essential (primary) hypertension; R10.32 Left lower quadrant pain; D73.89 Other diseases of spleen; Z79.899 Other long term (current) drug therapy; K21.9 Gastro-esophageal reflux disease without esophagitis; Z90.49 Acquired absence of other specified parts of digestive tract
CPT/HCPCS: 74177; 80053; 81001; 85025; 90791; 96374; 96375; 99285; J7030; Q9967; A4216; J2405

== ENCOUNTER → 2023-06-13 | Outpatient (REF) | payer MEDICARE, MEDICAID, SELFPAY ==
[2023-06-13 09:24] LABS: Hematocrit 31.5 % (37-47); Mean Corp Hgb Conc 28.6 g/dL (32-36); Mean Corpuscular Hgb 28.8 pg (27.0-32.0); Mean Corpuscular Volume 100.6 fL (81-99); Mean Platelet Vol. 9.1 fl (6.2-12.0); Platelet Count 112 K/mm3 (150-450); RBC Distribution Width CV 13.9 % (11.6-14.6); RBC Distribution Width SD 51.3 fl (35.1-43.9); Red Blood Count 3.13 M/mm3 (4.2-5.4); White Blood Count 4.5 K/mm3 (4.4-11.0)
[2023-06-13 09:48] LABS: ALB/GLOB Ratio 0.6 RATIO (0.9-2.4); AST(SGOT) 11 U/L (15-37); Alanine Aminotransfer ALT/SGPT 14 U/L (13-56); Albumin, Serum 2.6 g/dL (3.2-5.0); Alkaline Phosphatase 72 U/L (45-117); Anion Gap 0 (5-15); BUN 20 mg/dL (7-18); BUN/Creat Ratio 30.8 RATIO (10-20); Calcium,Total 8.9 mg/dL (8.5-10.1); Chloride 104 mmol/L (98-107); Creatinine, Serum 0.65 mg/dL (0.55-1.02); EST Glomerular Filtration Rate 95 mL/min (>60); Est Glom Filt Rate - Afr Amer 115 mL/min (>60); Globulin 4.2 g/dL (2.2-4.2); Glucose 114 mg/dL (74-106); Protein, Total 6.8 g/dL (6.4-8.2); Sodium Level 146 mmol/L (136-145)
== END ==
LOC: OLS.ACH 04:00
PROVIDERS: PCP Internal Medicine; Referring Provider Internal Medicine; Visit Provider Internal Medicine
DX: R10.9 Unspecified abdominal pain (principal)
CPT/HCPCS: 36415; 80053; 85027

== ENCOUNTER → 2023-06-28 | Outpatient (REF) | payer MEDICARE, MEDICAID, SELFPAY ==
[2023-06-28 09:00] LABS: Hematocrit 30.7 % (37-47); Hemoglobin 8.6 g/dL (12.0-15.0); Mean Corpuscular Hgb 28.5 pg (27.0-32.0); Mean Corpuscular Volume 101.7 fL (81-99); Platelet Count 111 K/mm3 (150-450); RBC Distribution Width CV 14.1 % (11.6-14.6); Red Blood Count 3.02 M/mm3 (4.2-5.4); White Blood Count 4.6 K/mm3 (4.4-11.0)
[2023-06-28 09:13] LABS: ALB/GLOB Ratio 0.6 RATIO (0.9-2.4); AST(SGOT) 12 U/L (15-37); Alanine Aminotransfer ALT/SGPT 16 U/L (13-56); Albumin, Serum 2.6 g/dL (3.2-5.0); Alkaline Phosphatase 72 U/L (45-117); Anion Gap 1 (5-15); BUN 21 mg/dL (7-18); BUN/Creat Ratio 32.5 RATIO (10-20); Chloride 101 mmol/L (98-107); Creatinine, Serum 0.65 mg/dL (0.55-1.02); EST Glomerular Filtration Rate 95 mL/min (>60); Est Glom Filt Rate - Afr Amer 115 mL/min (>60); Globulin 4.2 g/dL (2.2-4.2); Glucose 117 mg/dL (74-106); Lipase 18 U/L (13-75); Potassium 3.9 mmol/L (3.5-5.1); Protein, Total 6.8 g/dL (6.4-8.2); Sodium Level 145 mmol/L (136-145)
== END ==
LOC: OLS.ACH 05:00
PROVIDERS: PCP Internal Medicine; Visit Provider Internal Medicine
DX: I50.22 Chronic systolic (congestive) heart failure (principal)
CPT/HCPCS: 36415; 80053; 83690; 85027

== ENCOUNTER 2023-07-14 15:14 | Emergency (ER) | payer MEDICARE, MEDICAID, SELFPAY ==
[2023-07-14 15:15] VITALS: BP 123/64; PULSE 91; RESP 16; TEMP 36.3; O2SAT 97
[2023-07-14 15:23] VITALS: BMI 29.3
--- NOTE | 2023-07-14 15:34 | CT_ITS ---
INDICATION: LLQ abd pain EXAMINATION: CT ABDOMEN AND PELVIS WITH CONTRAST - CT Abdomen And Pelvis W/ Contrast Injection TECHNIQUE: Helically acquired images were obtained of the abdomen and pelvis following IV contrast. A radiation dose optimization technique was used for this scan. IV Contrast dosage and agent: 100 cc [id number] Oral contrast: None. COMPARISON: 04/19/2023 CT abdomen and pelvis, MRI abdomen 03/20/2014 FINDINGS: LOWER CHEST: Bibasilar dependent and/or fibrotic changes. Cardiomegaly, no pericardial effusion. LIVER: Homogeneous. No focal mass. GALLBLADDER AND BILIARY TREE: Gallbladder absent. Stable mild dilatation of the intrahepatic and extrahepatic biliary ducts. PANCREAS: Stable atrophy with multiple fluid density lesions in the head, body and tail, largest lesion measures 2.4 cm in the mid body, 1.4 cm and the head. SPLEEN: Stable 8.5 cm mildly hyperdense mass in the spleen with stable small hypoattenuating lesions. ADRENAL GLANDS: 3 cm left adrenal nodule containing macroscopic fat, unchanged from the prior CT, minimally increased from the 2014 MRI study. KIDNEYS AND URETERS: Bilateral cortical cysts. Nonobstructing left renal calculus. No hydronephrosis. PERITONEUM: No ascites or free air. BOWEL: No evidence of acute appendicitis. No stomach or bowel distension. Sigmoid diverticulosis with severe wall thickening and adjacent inflammatory stranding similar to prior study. LYMPH NODES: No enlarged mesenteric or retroperitoneal lymph nodes. VESSELS: Aorta is non-dilated. URINARY BLADDER: Unremarkable. REPRODUCTIVE ORGANS: No pelvic masses. ABDOMINAL WALL: No discrete abdominal or pelvic wall hernia. BONES: No acute or aggressive abnormality. CT/Abdomen/Pelvis W IV Cont ONLY IMPRESSION: Findings consistent with persistent or recurrent acute sigmoid diverticulitis. Consider follow-up evaluation for underlying inflammatory malignancy. Multiple cystic pancreatic lesions in the head, body and tail. Differential diagnosis includes both benign and malignant cystic lesions and close follow-up including correlation with dedicated pancreatic MRI recommended. Multiple chronic findings as above. Electronically Signed: Jose Rey MD at 17:51 EDT ,
--- NOTE | 2023-07-14 15:36 | ED.VIS.GI ---
HPI HPI - GI History of Present Illness Chief Complaint: Abd Pain Informant: patient Narrative Narrative: Patient is a 72-year-old female with history of CHF, anemia, thrombocytopenia, COPD (on 2 L of oxygen at baseline) and colitis versus diverticulitis presenting with worsening left lower quadrant abdominal pain. Patient states she has had this pain for a while but has been worsening significantly over the last week and is now intolerable. She states the pain is been constant today. She states that sharp and stabbing. Is mostly in her left flank/left lower quadrant area but sometimes it radiates to her back and sometimes down into her left thigh. Eating seems to make it worse. She also has had associated dysuria and frequency of urination. She had some mild nausea but no vomiting. Denies any black or blood in her stool. Has had some mild diarrhea. No report of any fever or chills. States he has appointment to see a GI doctor next month but cannot wait that long. States that she has a little blue pill that helps some with her pain, review of her medical records from her nursing facility shows that this is likely Bentyl. Medical records also show that patient is DNR [facility]. She is a resident of [facility]. She notes that she is mostly wheelchair-bound but can walk short distances. Had a neck fracture earlier this year. 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 Chronic respiratory failure with hypoxia Colitis COPD (chronic obstructive pulmonary disease) Dysphagia Essential hypertension GERD (gastroesophageal reflux disease) History of falling Insomnia, unspecified Iron deficiency anemia Lung nodules Muscle weakness (generalized) Myocardial infarction Obstructive sleep apnea On mechanically assisted ventilation Other displaced fracture of seventh cervical vertebra, subsequent encounter for fracture with routine healing Other displaced fracture of sixth cervical vertebra, subsequent encounter for fracture with routine healing Other lack of coordination Other pancytopenia Personal history of malignant neoplasm of breast Personal history of nicotine dependence Pneumonia Primary osteoarthritis, left shoulder Primary osteoarthritis, right shoulder Pure hypercholesterolemia Respiratory failure with hypoxia Thrombocytopenia Type 2 diabetes mellitus with diabetic neuropathy Unspecified abnormalities of gait and mobility Urinary incontinence Venous insufficiency Venous insufficiency (chronic) (peripheral) Vitamin B12 deficiency Home Medications nystatin 100,000 unit/gram topical cream 1 applic topical BID Check with primary doctor 11/24/21 [History Last Taken Unknown] simvastatin 10 mg tablet 10 mg PO QHS CHOLESTEROL 11/24/21 [History Last Taken Unknown] bisacodyl 10 mg rectal suppository 10 mg UT DAILY PRN 11/11/22 [History Last Taken Unknown] cranberry 400 mg capsule 400 mg PO DAILY SUPPLEMENT 11/11/22 [History Last Taken Unknown] folic acid 1 mg tablet 1 mg PO DAILY SUPPLEMENT 11/11/22 [History Last Taken Unknown] glucagon 1 mg injection kit mg IM 11/11/22 [History Last Taken Unknown] docusate sodium 100 mg capsule 100 mg PO DAILY PRN constipation #60 caps 02/25/23 [Rx Last Taken Unknown] acetaminophen 325 mg tablet 325 mg PO DAILY PAIN 04/19/23 [History Last Taken Unknown] carvedilol 3.125 mg tablet 3.125 mg PO BID HEART 04/19/23 [History Last Taken Unknown] furosemide 40 mg tablet 20 mg PO DAILY FLUID 04/19/23 [History Last Taken Unknown] gabapentin 100 mg capsule 100 mg PO TID NERVE PAIN 04/19/23 [History Last Taken Unknown] glimepiride 4 mg tablet 1 mg PO DAILY DIABETES 04/19/23 [History Last Taken Unknown] lisinopril 2.5 mg tablet 2.5 mg PO DAILY BLOOD PRESSURE 04/19/23 [History Last Taken Unknown] potassium chloride 20 mEq tablet,extended release(part/cryst) 20 meq PO DAILY SUPPLEMENT 04/19/23 [History Last Taken Unknown] ferrous sulfate 325 mg (65 mg iron) tablet 325 mg PO BID 05/04/23 [History Last Taken Unknown] ondansetron HCl 4 mg tablet 4 mg PO Q8H PRN 05/04/23 [History Last Taken Unknown] pantoprazole 40 mg tablet,delayed release 40 mg PO DAILY 05/04/23 [History Last Taken Unknown] sennosides 8.6 mg-docusate sodium 50 mg capsule (Senna Plus) 1 tab-cap PO BID PRN 05/04/23 [History Last Taken Unknown] simethicone 80 mg chewable tablet (Gas Relief (simethicone)) 80 mg PO BID-QID PRN 05/04/23 [History Last Taken Unknown] ciprofloxacin HCl 500 mg tablet (Cipro) 500 mg PO Q12H #28 tabs 07/14/23 [Rx Last Taken Unknown] hydrocodone-acetaminophen 5-325mg 5mg-325mg 1 tab PO Q6H PRN PRN Pain 3 days #12 TABLETS 07/14/23 [Rx Last Taken Unknown] mesalamine 1.2 gram tablet,delayed release 2.4 g (2 x 1.2 gram) PO DAILY 4 weeks #56 tabs 07/14/23 [Rx Last Taken Unknown] metronidazole 500 mg tablet 500 mg PO TID #42 tabs 07/14/23 [Rx Last Taken Unknown] Allergy/AdvReac Type Severity Reaction Status Date / Time cyclobenzaprine Allergy Other Verified 07/14/23 15:15 [From Flexeril] tizanidine [From Zanaflex] Allergy Other Verified 07/14/23 15:15 Family History Sister Breast cancer Grandmother Diabetes Surgical History History of lumpectomy of left breast Hx of cervical spine surgery Hx of cholecystectomy Social History housing: [facility] Smoking Status: Former smoker alcohol intake: never substance use type: does not use ROS ROS ED Constitutional Constitutional ED: Denies chills or fever(s) Cardiovascular Cardiovascular: Denies chest pain Respiratory/Chest Respiratory/Chest: Denies cough or dyspnea Gastrointestinal Gastrointestinal: Reports abdominal pain, diarrhea and nausea; Denies melena or vomiting Genitourinary Genitourinary ED: Reports dysuria and urinary frequency; Denies hematuria Musculoskeletal Musculoskeletal: Denies arthralgias or myalgias Integumentary Denies rash Neurologic Neurologic: Denies headache(s) Hematologic/Lymphatic Hematologic/Lymphatic: Denies easy bleeding or easy bruising EXAM Physical Exam Const Vital Signs: 07/14/23 15:15 07/14/23 17:25 07/14/23 19:07 Temperature 97.4 F L Temperature Source Temporal Pulse Rate 91 93 92 Respiratory Rate 16 18 17 Blood Pressure 123/64 H 104/73 104/43 L Blood Pressure Mean 83 83 Pulse Ox 97 97 98 Oxygen Delivery Method Nasal Cannula Oxygen Flow Rate (L/min) 1.5 Positive well nourished and well developed General Appearance ED: well developed and NAD HEENT Reports moist mucous membranes Eyes PERRL Neck supple Neck Narrative: Decreased range of motion of the neck Resp normal respiratory effort and clear to auscultation bilaterally GI Auscultation: hyperactive bowel sounds Palpation: soft and tender LLQ; Negative for guarding, rigid or rebound tenderness present Back/Spine no CVA tenderness Thoracic Spine / Upper Back: Negative for thoracic spinal tenderness Lumbar Spine / Lower Back: Negative for lumbar spinal tenderness Extremity full ROM Neuro moves all extremities Sensorium / Orientation: alert, oriented to person, oriented to place and oriented to time Psych mental status grossly normal and thought process normal MDM MDM MDM Narrative Medical decision making narrative: Patient's evaluated for worsening left lower quadrant abdominal pain. No vital signs are normal. Differential includes pyelonephritis, urinary tract infection, colitis, renal colic and diverticulitis. As patient's vital signs are normal and she does not appear clinically dehydrated on exam will defer IV fluids at this time. We will give a dose of Zofran and morphine for symptom control while work-up is pending. Patient has symptomatic improvement with these interventions. She is a chronic appearing anemia and thrombocytopenia which are stable. She does not have a leukocytosis. Urinalysis is not consistent with infection. CMP largely unremarkable. Her CT abdomen pelvis shows recurrent or persistent acute sigmoid diverticulitis as well as multiple cystic pancreatic lesions. Patient is informed of these findings. Case is discussed with on-call GI, Dr. Raya, who recommends treating for sigmoid diverticulitis but wonders if there is an underlying inflammatory disorder that is predisposing her to this. Recommends after a course of Cipro and Flagyl for 2 weeks starting her on a course of mesalamine. By that time patient will have outpatient GI follow-up. Patient is also prescribed a short course of [place] for pain control. Is given first dose of antibiotics while in the emergency room. Is given return precautions. She verbalizes agreement nursing this plan. Discharged back to nursing facility in stable condition. History & Record Review Additional record(s) reviewed:: Prior outpatient record Lab Data Attestation: I reviewed the patient's lab results. Labs: Laboratory Results - last 24 hr 07/14/23 07/14/23 15:47 17:34 WBC 4.6 RBC 3.10 L Hgb 8.8 L Hct 31.4 L MCV 101.3 H MCH 28.4 MCHC 28.0 L RDW Std Deviation 53.1 H RDW Coeff of Amanda 14.4 Plt Count 117 L MPV 8.9 Immature Gran % (Auto) 0.400 Neut % (Auto) 76.9 H Lymph % (Auto) 14.7 L [place] % (Auto) 6.5 Eos % (Auto) 1.3 Baso % (Auto) 0.2 Absolute Neuts (auto) 3.6 Absolute Lymphs (auto) 0.68 L Nucleated RBC % 0 Sodium 144 Potassium 3.7 Chloride 103 Carbon Dioxide 40.0 H Anion Gap 1 L BUN 23 H Creatinine 0.61 Estim Creat Clear Calc 45.09 Est GFR (MDRD) Af Amer 123 Est GFR (MDRD) Non-Af 102 BUN/Creatinine Ratio 37.6 H Glucose 127 H Calcium 8.8 Total Bilirubin 0.30 AST 17 ALT 25 Alkaline Phosphatase 76 Total Protein 7.0 Albumin 2.6 L Globulin 4.4 H Albumin/Globulin Ratio 0.6 L Urine Color Yellow Urine Clarity Clear Urine pH 6.0 Ur Specific [place] 1.020 Urine Protein 15 H Urine Glucose (UA) Normal Urine Ketones Negative Urine Occult Blood Negative Urine Nitrite Negative Urine Bilirubin Negative Urine Urobilinogen Normal Ur Leukocyte Esterase Negative Urine RBC 0-5 SEEN Urine WBC 0 SEEN Ur Squamous Epith Cells 0 SEEN Urine Bacteria 0 SEEN Urine Mucus 0 SEEN Radiography Diagnostic Testing: Clinical Impression(s) from Imaging Studies Abdomen/Pelvis CT 07/14/23 15:34 IMPRESSION: Findings consistent with persistent or recurrent acute sigmoid diverticulitis. Consider follow-up evaluation for underlying inflammatory malignancy. Multiple cystic pancreatic lesions in the head, body and tail. Differential diagnosis includes both benign and malignant cystic lesions and close follow-up including correlation with dedicated pancreatic MRI recommended. Multiple chronic findings as above. Electronically Signed: Jose Rey MD at 17:51 EDT Reading Location ID and State: [facility] / [place] Tel , Service support , Discharge Plan Triage Chief Complaint: Abd Pain ED Provider: Shahnaz Way Dx/Rx/DC Orders Clinical Impression: Colitis, Diverticulitis Instructions: ED Understanding Colitis, ED Diverticulitis Prescriptions: New ciprofloxacin HCl [Cipro] 500 mg tablet 500 mg PO Q12H Qty: 28 0RF metronidazole 500 mg tablet 500 mg PO TID Qty: 42 0RF mesalamine 1.2 gram tablet,delayed release (DR/EC) 2.4 g PO DAILY 28 Days Qty: 56 0RF hydrocodone-acetaminophen 5-325 mg tablet 1 tab PO Q6H PRN PRN (Reason: Pain) 3 Days Qty: 12 0RF No Action bisacodyl 10 mg suppository 10 mg UT DAILY PRN cranberry 400 mg capsule 400 mg PO DAILY folic acid 1 mg tablet 1 mg PO DAILY glucagon 1 mg kit IM ferrous sulfate 325 mg (65 mg iron) tablet 325 mg PO BID ondansetron HCl 4 mg tablet 4 mg PO Q8H PRN pantoprazole 40 mg tablet,delayed release (DR/EC) 40 mg PO DAILY Senna Plus 8.6-50 mg capsule 1 tab-cap PO BID PRN simethicone [Gas Relief (simethicone)] 80 mg tablet,chewable 80 mg PO BID-QID PRN nystatin 100,000 unit/gram cream 1 applic TOPICAL BID simvastatin 10 mg tablet 10 mg PO QHS docusate sodium 100 mg capsule 100 mg PO DAILY PRN (Reason: constipation) Qty: 60 0RF acetaminophen 325 mg Tablet 325 mg PO DAILY potassium chloride 20 mEq tablet,ER particles/crystals 20 meq PO DAILY glimepiride 4 mg tablet 1 mg PO DAILY gabapentin 100 mg capsule 100 mg PO TID furosemide 40 mg tablet 20 mg PO DAILY carvedilol 3.125 mg tablet 3.125 mg PO BID lisinopril 2.5 mg tablet 2.5 mg PO DAILY Primary Care Provider: Jonathan Dillard Referrals: Jonathan Dillard MD [Primary Care Provider] - Activity Restrictions/Additional Instructions: Your CT showed inflammation of the sigmoid colon as well as diverticulitis. This case was discussed with our GI doctor on-call, Dr. Raya. He recommended treating you for sigmoid diverticulitis with antibiotics (ciprofloxacin and Flagyl/metronidazole). Once you have completed the 2-week course of antibiotics he recommend starting you on an anti-inflammatory for possible inflammatory bowel disease called mesalamine. Do not start this until after you finish the antibiotics. Please follow-up with your GI doctor as scheduled this month. Return to ER if you have a progression or worsening of your symptoms. Disposition Disposition: Home, Self Care
[2023-07-14 15:53] LABS: Absolute Lymphocyte Count 0.68 X10^3/uL (0.83-4.51); Absolute Neutrophil Count 3.6 X10^3/uL (2.0-7.7); Basophil# 0.01 X10^3/uL; Basophil% 0.2 % (0-1); Eosinophil# 0.06 X10^3/uL; Eosinophils% 1.3 % (0-5); Hematocrit 31.4 % (37-47); Hemoglobin 8.8 g/dL (12.0-15.0); Lymphocyte # 0.68 X10^3/ul (0.83-4.51); Lymphocyte % 14.7 % (19-41); Mean Corpuscular Hgb 28.4 pg (27.0-32.0); Mean Corpuscular Volume 101.3 fL (81-99); Mean Platelet Vol. 8.9 fl (6.2-12.0); Monocyte% 6.5 % (0-10); NRBC Flagged by Analyzer 0 % (0-5); Neutrophil # 3.57 X10^3/uL (2.7-7.7); Neutrophil % 76.9 % (47-70); Platelet Count 117 K/mm3 (150-450); RBC Distribution Width CV 14.4 % (11.6-14.6); RBC Distribution Width SD 53.1 fl (35.1-43.9); White Blood Count 4.6 K/mm3 (4.4-11.0)
[2023-07-14] MEDS: Morphine 4 MG/ML Syringe IV (16:04)
[2023-07-14] MEDS: Ondansetron 4 MG/2 ML Vial IV (16:04)
[2023-07-14 16:17] LABS: ALB/GLOB Ratio 0.6 RATIO (0.9-2.4); AST(SGOT) 17 U/L (15-37); Alanine Aminotransfer ALT/SGPT 25 U/L (13-56); Albumin, Serum 2.6 g/dL (3.2-5.0); Alkaline Phosphatase 76 U/L (45-117); Anion Gap 1 (5-15); BUN 23 mg/dL (7-18); BUN/Creat Ratio 37.6 RATIO (10-20); Calcium,Total 8.8 mg/dL (8.5-10.1); Chloride 103 mmol/L (98-107); Creatinine, Serum 0.61 mg/dL (0.55-1.02); EST Glomerular Filtration Rate 102 mL/min (>60); Est Glom Filt Rate - Afr Amer 123 mL/min (>60); Estimated Creatinine Clearance 45.09 ml/min; Globulin 4.4 g/dL (2.2-4.2); Glucose 127 mg/dL (74-106); Potassium 3.7 mmol/L (3.5-5.1); Sodium Level 144 mmol/L (136-145)
[2023-07-14 17:25] VITALS: BP 104/73; PULSE 93; RESP 18; O2SAT 97
[2023-07-14 17:57] LABS: Bacteria 0 SEEN /hpf (None Seen); Color, Urine Yellow (Yellow); Glucose, Dipstick Normal (Normal); Ketone-Dipstick Negative (Negative); Leukocyte Esterase-Dipstick Negative /ul (Negative); Mucous, Urine 0 SEEN /hpf (<or=2+); Nitrite-Dipstick Negative (Negative); Occult Blood-Urine Negative /ul (Negative); Protein-Dipstick 15 mg/dl (Negative); Squamous Epithelial Cells - UA 0 SEEN /hpf (5-10); Urine Bilirubin Dipstick Negative (Negative); Urine Clarity Clear (Clear); Urine Urobilinogen Normal (Normal); White Blood Cells 0 SEEN /hpf (0-5)
[2023-07-14 18:13] LABS: Red Blood Cells-Urine 0-5 SEEN /hpf (0-5)
[2023-07-14 19:07] VITALS: BP 104/43; PULSE 92; RESP 17; O2SAT 98
[2023-07-14] MEDS: Ciprofloxacin 500 MG Tablet PO (19:08)
[2023-07-14] MEDS: HYDROcodone Bitartrate/Apap 5/325 Tablet PO (19:08)
[2023-07-14] MEDS: metroNIDAZOLE 500 MG Tablet PO (19:08)
== END 2023-07-14 20:10 | disposition home or self-care (01) ==
PROVIDERS: Emergency Provider Emergency Medicine; PCP Internal Medicine; Visit Provider Emergency Medicine
DX: K57.92 Diverticulitis of intestine, part unspecified, without perforation or abscess without bleeding (principal); J44.9 Chronic obstructive pulmonary disease, unspecified; I11.0 Hypertensive heart disease with heart failure; I50.9 Heart failure, unspecified; Z87.891 Personal history of nicotine dependence; Z99.3 Dependence on wheelchair; I25.10 Atherosclerotic heart disease of native coronary artery without angina pectoris; E78.00 Pure hypercholesterolemia, unspecified; Z99.81 Dependence on supplemental oxygen; I25.2 Old myocardial infarction; Z85.3 Personal history of malignant neoplasm of breast; Z79.899 Other long term (current) drug therapy; K21.9 Gastro-esophageal reflux disease without esophagitis; Z90.49 Acquired absence of other specified parts of digestive tract; K52.9 Noninfective gastroenteritis and colitis, unspecified
CPT/HCPCS: 74177; 80053; 81001; 85025; 96374; 96375; 99284; J7030; Q9967; A4216; J2405

== ENCOUNTER 2023-08-09 22:55 | Emergency (ER) | payer MEDICARE, MEDICAID, SELFPAY ==
[2023-08-09 22:56] VITALS: BP 113/56; PULSE 103; RESP 18; TEMP 37.2; O2SAT 96; BMI 29.3
[2023-08-10 00:43] VITALS: BP 111/63; BP 112/46; PULSE 98; PULSE 99
[2023-08-10 00:46] LABS: Absolute Lymphocyte Count 0.52 X10^3/uL (0.83-4.51); Absolute Neutrophil Count 5.8 X10^3/uL (2.0-7.7); Basophil# 0.01 X10^3/uL; Basophil% 0.1 % (0-1); Eosinophil# 0.03 X10^3/uL; Eosinophils% 0.4 % (0-5); Hematocrit 33.8 % (37-47); Hemoglobin 9.9 g/dL (12.0-15.0); Lymphocyte # 0.52 X10^3/ul (0.83-4.51); Lymphocyte % 7.6 % (19-41); Mean Corp Hgb Conc 29.3 g/dL (32-36); Mean Corpuscular Hgb 29.3 pg (27.0-32.0); Mean Platelet Vol. 9.1 fl (6.2-12.0); Monocyte# 0.39 X10^3/uL; Monocyte% 5.7 % (0-10); NRBC Flagged by Analyzer 0 % (0-5); Neutrophil # 5.82 X10^3/uL (2.7-7.7); Neutrophil % 85.8 % (47-70); POSITIVE DIFFERENTIAL YES; Platelet Count 108 K/mm3 (150-450); RBC Distribution Width CV 14.1 % (11.6-14.6); RBC Distribution Width SD 51.8 fl (35.1-43.9); Red Blood Count 3.38 M/mm3 (4.2-5.4); White Blood Count 6.8 K/mm3 (4.4-11.0)
[2023-08-10 00:49] LABS: Differential Indicated SCAN CRITERIA MET
[2023-08-10 01:00] LABS: Anion Gap 1 (5-15); BUN 18 mg/dL (7-18); BUN/Creat Ratio 29.3 RATIO (10-20); Calcium,Total 8.4 mg/dL (8.5-10.1); Chloride 103 mmol/L (98-107); Creatinine, Serum 0.61 mg/dL (0.55-1.02); EST Glomerular Filtration Rate 101 mL/min (>60); Est Glom Filt Rate - Afr Amer 123 mL/min (>60); Estimated Creatinine Clearance 45.09 ml/min; Glucose 149 mg/dL (74-106); Magnesium 2.1 mg/dL (1.6-2.6); Potassium 4.1 mmol/L (3.5-5.1); Sodium Level 144 mmol/L (136-145)
[2023-08-10] MEDS: 0.9% Normal Saline (1000mL) 1,000 ML 999 ML IV (01:08)
[2023-08-10 01:40] LABS: Differential Comment SCANNED
--- NOTE | 2023-08-10 03:12 | EX.ED.DYSGE1 ---
HPI History of Present Illness Chief Complaint: Dizziness Informant: patient and EMS Narrative Narrative: Patient is a 72-year-old female with past medical history of COPD on 2 L nasal cannula oxygen 06/06 as well as thrombocytopenia and she states she gets around via wheelchair secondary to chronic muscular weakness and previous pelvic fracture. She states she typically can stand and pivot from her wheelchair to the toilet or bed. She states that this evening she was trying to do so from the toilet and was overcome with pain across her entire body and felt weak from it and could not hold herself up. She denies falling with this but because of the event custodial sent her in for evaluation. 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 Chronic respiratory failure with hypoxia Colitis COPD (chronic obstructive pulmonary disease) Dysphagia Essential hypertension GERD (gastroesophageal reflux disease) History of falling Insomnia, unspecified Iron deficiency anemia Lung nodules Muscle weakness (generalized) Myocardial infarction Obstructive sleep apnea On mechanically assisted ventilation Other displaced fracture of seventh cervical vertebra, subsequent encounter for fracture with routine healing Other displaced fracture of sixth cervical vertebra, subsequent encounter for fracture with routine healing Other lack of coordination Other pancytopenia Personal history of malignant neoplasm of breast Personal history of nicotine dependence Pneumonia Primary osteoarthritis, left shoulder Primary osteoarthritis, right shoulder Pure hypercholesterolemia Respiratory failure with hypoxia Thrombocytopenia Type 2 diabetes mellitus with diabetic neuropathy Unspecified abnormalities of gait and mobility Urinary incontinence Venous insufficiency Venous insufficiency (chronic) (peripheral) Vitamin B12 deficiency Home Medications nystatin 100,000 unit/gram topical cream 1 applic topical BID Check with primary doctor 11/24/21 [History Last Taken Unknown] simvastatin 10 mg tablet 10 mg PO QHS CHOLESTEROL 11/24/21 [History Last Taken Unknown] bisacodyl 10 mg rectal suppository 10 mg SD DAILY PRN constipation 11/11/22 [History Last Taken Unknown] cranberry 400 mg capsule 400 mg PO DAILY SUPPLEMENT 11/11/22 [History Last Taken Unknown] folic acid 1 mg tablet 1 mg PO DAILY SUPPLEMENT 11/11/22 [History Last Taken Unknown] glucagon 1 mg injection kit 1 mg IM PRN hypoglycemia 11/11/22 [History Last Taken Unknown] docusate sodium 100 mg capsule 100 mg PO DAILY PRN constipation #60 caps 02/25/23 [Rx Last Taken Unknown] acetaminophen 325 mg tablet 325 mg PO DAILY PAIN 04/19/23 [History Last Taken Unknown] carvedilol 3.125 mg tablet 3.125 mg PO BID HEART 04/19/23 [History Last Taken Unknown] furosemide 40 mg tablet 20 mg PO DAILY FLUID 04/19/23 [History Last Taken Unknown] gabapentin 100 mg capsule 100 mg PO TID NERVE PAIN 04/19/23 [History Last Taken Unknown] glimepiride 4 mg tablet 1 mg PO DAILY DIABETES 04/19/23 [History Last Taken Unknown] lisinopril 2.5 mg tablet 2.5 mg PO DAILY BLOOD PRESSURE 04/19/23 [History Last Taken Unknown] potassium chloride 20 mEq tablet,extended release(part/cryst) 20 meq PO DAILY SUPPLEMENT 04/19/23 [History Last Taken Unknown] ferrous sulfate 325 mg (65 mg iron) tablet 325 mg PO BID 05/04/23 [History Last Taken Unknown] ondansetron HCl 4 mg tablet 4 mg PO Q8H PRN nausea and vomiting 05/04/23 [History Last Taken Unknown] pantoprazole 40 mg tablet,delayed release 40 mg PO DAILY 05/04/23 [History Last Taken Unknown] sennosides 8.6 mg-docusate sodium 50 mg capsule (Senna Plus) 1 tab-cap PO BID PRN constipation 05/04/23 [History Last Taken Unknown] simethicone 80 mg chewable tablet (Gas Relief (simethicone)) 80 mg PO BID-QID PRN abdominal distention 05/04/23 [History Last Taken Unknown] ciprofloxacin HCl 500 mg tablet (Cipro) 500 mg PO Q12H #28 tabs 07/14/23 [Rx Last Taken Unknown] hydrocodone-acetaminophen 5-325mg 5mg-325mg 1 tab PO Q6H PRN PRN Pain 3 days #12 TABLETS 07/14/23 [Rx Last Taken Unknown] mesalamine 1.2 gram tablet,delayed release 2.4 g (2 x 1.2 gram) PO DAILY 4 weeks #56 tabs 07/14/23 [Rx Last Taken Unknown] metronidazole 500 mg tablet 500 mg PO TID #42 tabs 07/14/23 [Rx Last Taken Unknown] cyanocobalamin (vitamin B-12) 500 mcg tablet (B-12 DOTS) 1,000 mcg PO DAILY 08/09/23 [History Last Taken Unknown] dicyclomine 20 mg tablet 20 mg PO Q8H PRN PRN abdominal pain 08/09/23 [History Last Taken Unknown] magnesium hydroxide 400 mg/5 mL oral suspension 30 ml PO DAILY PRN constipation 08/09/23 [History Last Taken Unknown] Allergy/AdvReac Type Severity Reaction Status Date / Time cyclobenzaprine Allergy Other Verified 08/09/23 23:00 [From Flexeril] tizanidine [From Zanaflex] Allergy Other Verified 08/09/23 23:00 Family History Sister Breast cancer Grandmother Diabetes Surgical History History of lumpectomy of left breast Hx of cervical spine surgery Hx of cholecystectomy Social History housing: custodial Smoking Status: Former smoker alcohol intake: never substance use type: does not use ROS ROS ED Constitutional Constitutional ED: Denies chills or fever(s) Eyes Eyes: Denies change in vision ENT ENT ED: Denies sore throat Cardiovascular Cardiovascular: Denies chest pain Respiratory/Chest Respiratory/Chest: Denies cough or dyspnea Gastrointestinal Gastrointestinal: Denies abdominal pain, diarrhea, nausea or vomiting Genitourinary Genitourinary ED: Denies dysuria Musculoskeletal Musculoskeletal: Reports myalgias Integumentary Denies rash Neurologic Neurologic: Reports weakness; Denies headache(s) Hematologic/Lymphatic Hematologic/Lymphatic: Denies easy bleeding or easy bruising EXAM Physical Exam Const Vital Signs: 08/09/23 22:56 08/09/23 23:06 08/10/23 00:43 Temperature 98.9 F Temperature Source Oral Pulse Rate 103 H Pulse Rate [Lying] 98 Pulse Rate [Sitting (for 1 minute prior to obtaining)] 99 Respiratory Rate 18 Respiratory Pattern Normal Blood Pressure 113/56 L Blood Pressure [Lying] 111/63 Blood Pressure [Sitting (for 1 minute prior to obtaining)] 112/46 L Blood Pressure Mean 75 Blood Pressure Mean [Lying] 79 Blood Pressure Mean [Sitting (for 1 minute prior to obtaining)] 68 Pulse Ox 96 Oxygen Delivery Method Nasal Cannula Oxygen Flow Rate (L/min) 2 Positive well nourished and well developed General Appearance ED: well developed HEENT HEENT Narrative: Mucous membranes are dry and tacky No signs of infection noted in the posterior pharynx Eyes PERRL and EOMs intact bilaterally General Eye ED: Negative for scleral icterus Neck supple Neck Narrative: No nuchal rigidity or meningeal signs noted Chest Wall palpation of chest normal Chest Narrative: No bony deformity or crepitance palpated Resp normal respiratory effort Resp Narrative: Breath sounds are diminished throughout with expiratory wheeze diffusely consistent with history of COPD but otherwise no nasal flaring retractions tachypnea or accessory muscle use Cardio regular rate and regular rhythm Rate: other Other Details: Radial and carotid pulses equal and symmetric GI non-tender, non-distended and no masses GI Narrative: Abdomen is soft nontender nondistended with hypoactive bowel sounds. No voluntary guarding or rigidity. No pulsatile mass or fluid wave Auscultation: hypoactive bowel sounds Palpation: soft Extremity normal to inspection Extremity Narrative: Pelvis is stable there is no shortening or external rotation either lower extremity. Neuro oriented x3 and CN's II-XII intact bilaterally Neuro Narrative: Patient reported generalized weakness from pain cranial nerves II through XII are grossly intact without any focal or acute neurologic deficit. NIH stroke scale score of 0 Sensorium / Orientation: alert Psych Psych Narrative: Patient has a flat affect Skin no rashes or lesions noted Skin Narrative: Skin turgor is increased General Skin Exam: Negative for jaundice MDM MDM MDM Narrative Medical decision making narrative: Patient presented to the ER with stable vitals and reported that her weakness stem from generalized body pain that had spontaneously, and then resolved prior to arrival in ER. Her physical exam shows dry mucous membranes with increased skin turgor and therefore differential diagnosis is for dehydration versus acute kidney injury versus electrolyte derangement versus acute blood loss anemia versus cardiac dysrhythmia. An EKG was obtained which showed normal sinus rhythm and labs show chronic anemia at patient's baseline without acute kidney injury. Orthostatic vitals were obtained and patient did have a drop of over 10 points to her diastolic blood pressure which does correlate with dehydration. She was given 1 L fluid and vitals remained stable and patient states that she no longer feels weak or has any type of generalized pain. Therefore at this time with improvement of symptoms and overall negative work-up patient is safe to return to the custodial History & Record Review Discussion w/independent historian: EMS personnel and Patient Lab Data Attestation: I reviewed the patient's lab results. Labs: Laboratory Results - last 24 hr 08/10/23 00:40 WBC 6.8 RBC 3.38 L Hgb 9.9 L Hct 33.8 L MCV 100.0 H MCH 29.3 MCHC 29.3 L RDW Std Deviation 51.8 H RDW Coeff of Amanda 14.1 Plt Count 108 L MPV 9.1 Immature Gran % (Auto) 0.400 Neut % (Auto) 85.8 H Lymph % (Auto) 7.6 L [place] % (Auto) 5.7 Eos % (Auto) 0.4 Baso % (Auto) 0.1 Absolute Neuts (auto) 5.8 Absolute Lymphs (auto) 0.52 L Nucleated RBC % 0 Differential Comment SCANNED Sodium 144 Potassium 4.1 Chloride 103 Carbon Dioxide 40.0 H Anion Gap 1 L BUN 18 Creatinine 0.61 Estim Creat Clear Calc 45.09 Est GFR (MDRD) Af Amer 123 Est GFR (MDRD) Non-Af 101 BUN/Creatinine Ratio 29.3 H Glucose 149 H Calcium 8.4 L Magnesium 2.1 Discharge Plan Triage Chief Complaint: Dizziness ED Provider: Calvin Avalos Dx/Rx/DC Orders Clinical Impression: Generalized weakness, Mild dehydration, COPD (chronic obstructive pulmonary disease) Instructions: Dehydration, ED Near-Fainting, Uncertain Cause Prescriptions: No Action bisacodyl 10 mg suppository 10 mg SD DAILY PRN (Reason: constipation) cranberry 400 mg capsule 400 mg PO DAILY folic acid 1 mg tablet 1 mg PO DAILY glucagon 1 mg kit 1 mg IM PRN (Reason: hypoglycemia) ferrous sulfate 325 mg (65 mg iron) tablet 325 mg PO BID ondansetron HCl 4 mg tablet 4 mg PO Q8H PRN (Reason: nausea and vomiting) pantoprazole 40 mg tablet,delayed release (DR/EC) 40 mg PO DAILY Senna Plus 8.6-50 mg capsule 1 tab-cap PO BID PRN (Reason: constipation) simethicone [Gas Relief (simethicone)] 80 mg tablet,chewable 80 mg PO BID-QID PRN (Reason: abdominal distention) nystatin 100,000 unit/gram cream 1 applic TOPICAL BID simvastatin 10 mg tablet 10 mg PO QHS docusate sodium 100 mg capsule 100 mg PO DAILY PRN (Reason: constipation) Qty: 60 0RF acetaminophen 325 mg Tablet 325 mg PO DAILY potassium chloride 20 mEq tablet,ER particles/crystals 20 meq PO DAILY glimepiride 4 mg tablet 1 mg PO DAILY gabapentin 100 mg capsule 100 mg PO TID furosemide 40 mg tablet 20 mg PO DAILY carvedilol 3.125 mg tablet 3.125 mg PO BID lisinopril 2.5 mg tablet 2.5 mg PO DAILY ciprofloxacin HCl [Cipro] 500 mg tablet 500 mg PO Q12H Qty: 28 0RF metronidazole 500 mg tablet 500 mg PO TID Qty: 42 0RF mesalamine 1.2 gram tablet,delayed release (DR/EC) 2.4 g PO DAILY 28 Days Qty: 56 0RF hydrocodone-acetaminophen 5-325 mg tablet 1 tab PO Q6H PRN PRN (Reason: Pain) 3 Days Qty: 12 0RF dicyclomine 20 mg tablet 20 mg PO Q8H PRN PRN (Reason: abdominal pain) magnesium hydroxide 400 mg/5 mL suspension 30 ml PO DAILY PRN (Reason: constipation) cyanocobalamin (vitamin B-12) [B-12 DOTS] 500 mcg tablet 1,000 mcg PO DAILY Primary Care Provider: Jonathan Dillard Sr. Referrals: Jonathan Dillard Sr., DO [Primary Care Provider] - Disposition Disposition: Home, Self Care Discharge Date/Time: 08/10/23 04:44
[2023-08-10 03:47] VITALS: BP 108/62; PULSE 89; RESP 18; O2SAT 95
--- NOTE | 2023-08-10 04:02 | ED.RN ---
attempted to call [facility] home to give report
--- NOTE | 2023-08-10 04:27 | NURSING ---
Report given to nurse Goff
== END 2023-08-10 04:44 | disposition home or self-care (01) ==
PROVIDERS: Emergency Provider Emergency Medicine; PCP Internal Medicine; Visit Provider Emergency Medicine
DX: E86.0 Dehydration (principal); E11.51 Type 2 diabetes mellitus with diabetic peripheral angiopathy without gangrene; J44.9 Chronic obstructive pulmonary disease, unspecified; E11.40 Type 2 diabetes mellitus with diabetic neuropathy, unspecified; J96.12 Chronic respiratory failure with hypercapnia; J96.11 Chronic respiratory failure with hypoxia; D69.6 Thrombocytopenia, unspecified; R53.1 Weakness; R42 Dizziness and giddiness; E78.00 Pure hypercholesterolemia, unspecified; I25.10 Atherosclerotic heart disease of native coronary artery without angina pectoris; I10 Essential (primary) hypertension; D64.9 Anemia, unspecified; K21.9 Gastro-esophageal reflux disease without esophagitis; R13.10 Dysphagia, unspecified; G47.00 Insomnia, unspecified; G47.33 Obstructive sleep apnea (adult) (pediatric); I25.2 Old myocardial infarction; Z79.899 Other long term (current) drug therapy; Z79.84 Long term (current) use of oral hypoglycemic drugs; Z87.891 Personal history of nicotine dependence; Z99.81 Dependence on supplemental oxygen
CPT/HCPCS: 80048; 83735; 85025; 93005; 96360; 99285; A4216

== ENCOUNTER → 2023-08-16 | Outpatient (REF) | payer MEDICARE, MEDICAID, SELFPAY ==
[2023-08-16 08:57] LABS: Mucous, Urine 0 SEEN /hpf (<or=2+)
[2023-08-16 09:22] LABS: Color, Urine Yellow (Yellow); Glucose, Dipstick Normal (Normal); Ketone-Dipstick 5 mg/dl (Negative); Leukocyte Esterase-Dipstick 25 /ul (Negative); Nitrite-Dipstick Negative (Negative); Occult Blood-Urine 150 /ul (Negative); Protein-Dipstick 100 mg/dl (Negative); Specific Gravity, Urine 1.025 (1.002-1.030); Urine Bilirubin Dipstick Negative (Negative); Urine Clarity Sl. Cloudy (Clear); Urine Urobilinogen Normal (Normal)
[2023-08-16 09:31] LABS: Hyaline Cast 5-10 SEEN /lpf (0-5)
[2023-08-16 09:32] LABS: Red Blood Cells-Urine 5-10 SEEN /hpf (0-5); Squamous Epithelial Cells - UA 5-10 SEEN /hpf (5-10); White Blood Cells 0-5 SEEN /hpf (0-5)
[2023-08-16 09:33] LABS: Bacteria 1+ /hpf (None Seen)
== END ==
LOC: OLS.ACH 08:56
PROVIDERS: PCP Internal Medicine; Visit Provider Internal Medicine
DX: R32 Unspecified urinary incontinence (principal)
CPT/HCPCS: 81001; 87086; 87088

== ENCOUNTER → 2023-08-31 | Outpatient (REF) | payer MEDICARE, MEDICAID, SELFPAY ==
[2023-08-31 09:16] LABS: Hematocrit 29.3 % (37-47); Hemoglobin 8.5 g/dL (12.0-15.0); Mean Corpuscular Hgb 29.8 pg (27.0-32.0); Mean Corpuscular Volume 102.8 fL (81-99); Mean Platelet Vol. 9.6 fl (6.2-12.0); POSITIVE COUNT YES; Platelet Count 96 K/mm3 (150-450); RBC Distribution Width CV 14.4 % (11.6-14.6); RBC Distribution Width SD 54.3 fl (35.1-43.9); Red Blood Count 2.85 M/mm3 (4.2-5.4); White Blood Count 3.7 K/mm3 (4.4-11.0)
[2023-08-31 09:17] LABS: Scan Indicated on CBC? Y/N YES- FLAGS NOTED
[2023-08-31 09:29] LABS: Anion Gap 3 (5-15); BUN 19 mg/dL (7-18); BUN/Creat Ratio 37.5 RATIO (10-20); Calcium,Total 9.5 mg/dL (8.5-10.1); Chloride 104 mmol/L (98-107); Creatinine, Serum 0.51 mg/dL (0.55-1.02); EST Glomerular Filtration Rate 127 mL/min (>60); Est Glom Filt Rate - Afr Amer 153 mL/min (>60); Glucose 110 mg/dL (74-106); Potassium 3.9 mmol/L (3.5-5.1); Sodium Level 146 mmol/L (136-145)
[2023-08-31 09:30] LABS: Mucous, Urine 0 SEEN /hpf (<or=2+); Squamous Epithelial Cells - UA 0 SEEN /hpf (5-10)
[2023-08-31 09:33] LABS: Color, Urine Yellow (Yellow); Glucose, Dipstick Normal (Normal); Ketone-Dipstick Negative (Negative); Leukocyte Esterase-Dipstick 500 /ul (Negative); Nitrite-Dipstick Negative (Negative); Occult Blood-Urine 250 /ul (Negative); Protein-Dipstick 100 mg/dl (Negative); Specific Gravity, Urine 1.015 (1.002-1.030); Urine Bilirubin Dipstick Negative (Negative); Urine Clarity Cloudy (Clear); Urine Urobilinogen Normal (Normal)
[2023-08-31 09:40] LABS: White Blood Cells >100 SEEN /hpf (0-5)
[2023-08-31 09:41] LABS: Bacteria 2+ /hpf (None Seen); Red Blood Cells-Urine > 100 SEEN /hpf (0-5)
== END ==
LOC: OLS.ACH 05:00
PROVIDERS: PCP Internal Medicine; Visit Provider Internal Medicine
DX: I11.0 Hypertensive heart disease with heart failure (principal); I50.22 Chronic systolic (congestive) heart failure; D50.9 Iron deficiency anemia, unspecified; N93.9 Abnormal uterine and vaginal bleeding, unspecified; Z79.899 Other long term (current) drug therapy
CPT/HCPCS: 36415; 80048; 81001; 85027; 87086; 87088

== ENCOUNTER → 2023-09-09 | Outpatient (CLI) | payer MEDICARE, MEDICAID, SELFPAY ==
--- NOTE | 2023-09-09 | CYSPIN_PTH ---
PATIENT: POLI CROOKS LOC: [facility] U#:[id number] AGE/SX: 72/F ROOM: RE09/09/[address]: Dr. Alecia Navarrete MD : 1950 BED: DIS: 09/09/2023 SPEC #: [id number] RECD: 09/09/23 08:33 STATUS: MEDINA FLORIAN #: [id number] JOIE: 09/09/23 00:[address]: Alecia Navarrete DEPT: CYTOLOGY RECD BY: Yanique Morales ENTERED: 09/12/23 08:34 SP TYPE: CYSPIN FL OTHR DR: Dr. Jonathan Dillard Sr., DO Tissues: Urine Procedures: Pap Stain (control) Special Stain Group II Cytospin Fluid HEADER OPERATION: Not noted PRE-OP DIAGNOSIS: Gross hematuria TISSUE SUBMITTED: Urine for cytology DIAGNOSIS CYTOLOGY Urine for cytology (cytospin): Negative for high-grade urothelial carcinoma (NHGUC), Daja System Category II. Marked acute inflammation. See comment. SJ:rg 09/12/2023 COMMENT Clinical correlation and appropriate follow up are necessary. The Daja System for urine cytology diagnostic categorization was used in the evaluation of this case. CYTOLOGY STUDY Slides are reviewed. CYTOLOGY GROSS Received is 10 ml of red cloudy fluid labeled with the patient's name and and designated per the requisition as urine. Submitted for cytology preparation. / ayleen 09/09/2023 TC:2 CPT: 00174
[2023-09-09 15:38] LABS: Cytology, Body Fluid / CSF SEE PATHOLOGY REPORT
== END | disposition home or self-care (01) ==
PROVIDERS: PCP Internal Medicine; Visit Provider Urology
DX: R31.0 Gross hematuria (principal)
CPT/HCPCS: 88108; 88313

== ENCOUNTER → 2023-09-13 | Outpatient (REF) | payer MEDICARE, MEDICAID, SELFPAY ==
[2023-09-13 08:15] LABS: Hematocrit 27.1 % (37-47); Mean Corp Hgb Conc 29.5 g/dL (32-36); Mean Corpuscular Hgb 30.5 pg (27.0-32.0); Mean Corpuscular Volume 103.4 fL (81-99); Mean Platelet Vol. 8.6 fl (6.2-12.0); Platelet Count 103 K/mm3 (150-450); RBC Distribution Width CV 14.4 % (11.6-14.6); RBC Distribution Width SD 54.3 fl (35.1-43.9); Red Blood Count 2.62 M/mm3 (4.2-5.4); White Blood Count 2.8 K/mm3 (4.4-11.0)
[2023-09-13 08:17] LABS: Scan Indicated on CBC? Y/N NO
[2023-09-13 08:37] LABS: ALB/GLOB Ratio 0.6 RATIO (0.9-2.4); AST(SGOT) 11 U/L (15-37); Alanine Aminotransfer ALT/SGPT 18 U/L (13-56); Albumin, Serum 2.4 g/dL (3.2-5.0); Alkaline Phosphatase 58 U/L (45-117); Anion Gap 1 (5-15); BUN 18 mg/dL (7-18); BUN/Creat Ratio 34.5 RATIO (10-20); Calcium,Total 8.7 mg/dL (8.5-10.1); Chloride 103 mmol/L (98-107); Creatinine, Serum 0.52 mg/dL (0.55-1.02); EST Glomerular Filtration Rate 122 mL/min (>60); Est Glom Filt Rate - Afr Amer 148 mL/min (>60); Globulin 4.2 g/dL (2.2-4.2); Glucose 111 mg/dL (74-106); Potassium 3.8 mmol/L (3.5-5.1); Protein, Total 6.6 g/dL (6.4-8.2); Sodium Level 145 mmol/L (136-145)
== END ==
LOC: OLS.ACH 05:00
PROVIDERS: PCP Internal Medicine; Visit Provider Internal Medicine
DX: D37.4 Neoplasm of uncertain behavior of colon (principal); R10.9 Unspecified abdominal pain; R59.0 Localized enlarged lymph nodes; R32 Unspecified urinary incontinence; N93.9 Abnormal uterine and vaginal bleeding, unspecified
CPT/HCPCS: 36415; 80053; 85027

== ENCOUNTER 2023-09-14 22:44 | Emergency (ER) | payer MEDICARE, MEDICAID, SELFPAY ==
[2023-09-14 22:45] VITALS: BP 113/67; PULSE 88; RESP 16; TEMP 37; O2SAT 98; BMI 29.0
[2023-09-14] MEDS: Ondansetron 4 MG/2 ML Vial IV (23:39)
[2023-09-14] MEDS: Morphine 4 MG/ML Syringe IV (23:40)
[2023-09-15] VITALS (16 sets, daily range): BP systolic 94–123; BP diastolic 48–67; PULSE 79–97; RESP 15–23; TEMP 36.4–36.7; O2SAT 98–100
--- NOTE | 2023-09-15 00:07 | CT_ITS ---
We are attempting to reach an attending provider to discuss findings. An addendum with communication details will be sent when the communication is complete. EXAM: CT Abdomen And Pelvis W/ Contrast Injection HISTORY: abd pain diverticulitis in last month, llq pain for 2 weeks, vaginal bleeding TECHNIQUE: Routine protocol CT abdomen pelvis. IV Contrast: IV 100mL Isovue-370 . Oral Contrast: without. Sagittal and coronal images were reconstructed. RADIATION DOSAGE (If Supplied By Facility): CTDIvol = ( 19.42 ) mGy, DLP = ( 1026.65 ) mGycm Individualized dose optimization techniques were used for this CT. COMPARISON: CT abdomen and pelvis 07/14/2023. LIMITATIONS: None. FINDINGS: LOWER CHEST: Reticular opacities in the lung bases scarring or atelectasis. Cardiomegaly. LIVER: Unremarkable. GALLBLADDER/BILE DUCTS: Gallbladder not identified presumed surgically absent. PANCREAS: Several low attenuation cystic structures throughout the pancreas, largest in the mid body is 2.5 x 1.8 cm, not significantly changed. No adjacent inflammatory changes or fluid collection. SPLEEN: Approximately 9 cm mass, and multiple smaller lesions not significantly changed. ADRENAL GLANDS: 3 cm left adrenal mass unchanged. KIDNEYS / URETERS: Several small cysts, not significantly changed. Small calculi in the left kidney. No hydronephrosis. BOWEL / MESENTERY: Marked wall thickening of the distal descending to sigmoid colon with extensive adjacent inflammatory stranding similar to prior study. There is a focal collection containing air and fluid extending inferior from the margin of the sigmoid colon with fluid level, measures approximately 4.5 x 4 cm axial consistent with abscess and/or contained perforation. Diverticulitis region and scattered throughout the colon. Mildly dilated small bowel in the left lower abdomen with prominent folds. No bowel obstruction. APPENDIX: Not identified. PERITONEUM: No free air. No free fluid. VESSELS: Abdominal aorta is normal caliber. RETROPERITONEUM: Unremarkable. REPRODUCTIVE ORGANS: Grossly unremarkable. The collection adjacent to the sigmoid colon approximately uterus and bladder. A few tiny foci of air in the vaginal canal or cervix.. BLADDER: Mildly distended. Marked diffuse bladder wall thickening. Indentation on the bladder dome by the adjacent collection/sigmoid process, with no clear fascial plane between the 2 structures. No air within the bladder lumen. ABDOMINAL WALL: Unremarkable. BONES: No acute abnormality. OTHER: Irregular nodular focus in the inferior left breast with calcifications, and a second rounded structure, similar to prior and not adequately assessed on CT.. CT/Abdomen/Pelvis W IV Cont ONLY IMPRESSION: 1. Findings consistent with acute / persistent sigmoid diverticulitis with contained perforation or abscess. 2. Marked diffuse bladder wall thickening with mass effect from the adjacent collection may be reactive. At risk for colovesical fistula. 3. Inflammatory changes also abut the uterus. Tiny foci of air in the vagina or cervix, may be at risk for colovaginal fistula. 4. Mildly dilated small bowel in the left lower abdomen likely secondary to ileus. 5. Other findings stable including 9 cm splenic mass and multiple smaller splenic lesions, multiple pancreatic cystic lesions, and left adrenal 3 cm mass. Nodular structures in the left inferior breast. Further imaging characterization needed for these lesions, which may be benign or malignant. Electronically Signed: Cele Min MD at 2:10 EDT ,
[2023-09-15 00:14] LABS: Absolute Neutrophil Count 2.5 X10^3/uL (2.0-7.7); Basophil# 0.01 X10^3/uL; Basophil% 0.3 % (0-1); Eosinophil# 0.03 X10^3/uL; Eosinophils% 0.8 % (0-5); Hematocrit 28.8 % (37-47); Hemoglobin 8.3 g/dL (12.0-15.0); Lymphocyte % 19.5 % (19-41); Mean Corp Hgb Conc 28.8 g/dL (32-36); Mean Corpuscular Hgb 29.6 pg (27.0-32.0); Mean Corpuscular Volume 102.9 fL (81-99); Mean Platelet Vol. 8.8 fl (6.2-12.0); Monocyte# 0.28 X10^3/uL; Monocyte% 7.8 % (0-10); NRBC Flagged by Analyzer 0 % (0-5); Neutrophil # 2.53 X10^3/uL (2.7-7.7); Neutrophil % 70.5 % (47-70); Platelet Count 109 K/mm3 (150-450); RBC Distribution Width CV 14.1 % (11.6-14.6); White Blood Count 3.6 K/mm3 (4.4-11.0)
[2023-09-15 00:24] LABS: AST(SGOT) 10 U/L (15-37); Alanine Aminotransfer ALT/SGPT 18 U/L (13-56); Albumin, Serum 2.5 g/dL (3.2-5.0); Alkaline Phosphatase 66 U/L (45-117); Anion Gap 2 (5-15); BUN 21 mg/dL (7-18); BUN/Creat Ratio 25.5 RATIO (10-20); Bilirubin, Direct 0.09 mg/dL (0.00-0.30); Chloride 101 mmol/L (98-107); Creatinine, Serum 0.82 mg/dL (0.55-1.02); EST Glomerular Filtration Rate 72 mL/min (>60); Est Glom Filt Rate - Afr Amer 87 mL/min (>60); Estimated Creatinine Clearance 54.98 ml/min; Globulin 4.4 g/dL (2.2-4.2); Glucose 134 mg/dL (74-106); Lipase 24 U/L (13-75); Protein, Total 6.9 g/dL (6.4-8.2); Sodium Level 144 mmol/L (136-145)
[2023-09-15 00:38] LABS: Partial Thromboplast Time 29.8 Seconds (24.1-36.2)
--- NOTE | 2023-09-15 01:07 | EDS_ITS ---
HPI History of Present Illness Chief Complaint: Abd Pain Informant: patient, EMS and SNF Narrative Narrative: Patient is a 71-year-old female from the longterm with past medical history of COPD on oxygen 06/06 as well as congestive heart failure hypertension and diabetes. She has been evaluated over the past 4 to 5 months for recurrent abdominal pain and found to have chronic colitis. There is concern this could be related to a potential malignancy. The patient is on [place] secondary to this. Reportedly she recently was diagnosed with UTI as well and has been placed on antibiotics. Patient is complaining of persistent abdominal pain as well as vaginal bleeding 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 Chronic respiratory failure with hypoxia Colitis COPD (chronic obstructive pulmonary disease) Dysphagia Essential hypertension GERD (gastroesophageal reflux disease) History of falling Insomnia, unspecified Iron deficiency anemia Lung nodules Muscle weakness (generalized) Myocardial infarction Obstructive sleep apnea On mechanically assisted ventilation Other displaced fracture of seventh cervical vertebra, subsequent encounter for fracture with routine healing Other displaced fracture of sixth cervical vertebra, subsequent encounter for fracture with routine healing Other lack of coordination Other pancytopenia Personal history of malignant neoplasm of breast Personal history of nicotine dependence Pneumonia Primary osteoarthritis, left shoulder Primary osteoarthritis, right shoulder Pure hypercholesterolemia Respiratory failure with hypoxia Thrombocytopenia Type 2 diabetes mellitus with diabetic neuropathy Unspecified abnormalities of gait and mobility Urinary incontinence Venous insufficiency Venous insufficiency (chronic) (peripheral) Vitamin B12 deficiency Home Medications nystatin 100,000 unit/gram topical cream 1 applic topical BID Check with primary doctor 11/24/21 [History Last Taken Unknown] simvastatin 10 mg tablet 10 mg PO QHS CHOLESTEROL 11/24/21 [History Last Taken Unknown] bisacodyl 10 mg rectal suppository 10 mg DE DAILY PRN constipation 11/11/22 [History Last Taken Unknown] cranberry 400 mg capsule 400 mg PO DAILY SUPPLEMENT 11/11/22 [History Last Taken Unknown] folic acid 1 mg tablet 1 mg PO DAILY SUPPLEMENT 11/11/22 [History Last Taken Unknown] acetaminophen 325 mg tablet 650 mg PO QHS PAIN 04/19/23 [History Last Taken Unknown] carvedilol 3.125 mg tablet 3.125 mg PO BID HEART 04/19/23 [History Last Taken Unknown] gabapentin 100 mg capsule 100 mg PO TID NERVE PAIN 04/19/23 [History Last Taken Unknown] lisinopril 2.5 mg tablet 2.5 mg PO DAILY BLOOD PRESSURE 04/19/23 [History Last Taken Unknown] potassium chloride 20 mEq tablet,extended release(part/cryst) 20 meq PO DAILY SUPPLEMENT 04/19/23 [History Last Taken Unknown] ferrous sulfate 325 mg (65 mg iron) tablet 325 mg PO BID 05/04/23 [History Last Taken Unknown] ondansetron HCl 4 mg tablet 4 mg PO Q8H PRN nausea and vomiting 05/04/23 [History Last Taken Unknown] pantoprazole 40 mg tablet,delayed release 40 mg PO DAILY 05/04/23 [History Last Taken Unknown] sennosides 8.6 mg-docusate sodium 50 mg capsule (Senna Plus) 1 tab-cap PO BID PRN constipation 05/04/23 [History Last Taken Unknown] simethicone 80 mg chewable tablet (Gas Relief (simethicone)) 80 mg PO DAILY abdominal distention 05/04/23 [History Last Taken Unknown] hydrocodone-acetaminophen 5-325mg 5mg-325mg 1 tab PO Q6H PRN PRN Pain 3 days #12 TABLETS 07/14/23 [Rx Last Taken Unknown] cyanocobalamin (vitamin B-12) 500 mcg tablet (B-12 DOTS) 500 mcg PO QHS 08/09/23 [History Last Taken Unknown] dicyclomine 20 mg tablet 20 mg PO BID abdominal pain 08/09/23 [History Last Taken Unknown] magnesium hydroxide 400 mg/5 mL oral suspension 30 ml PO DAILY PRN constipation 08/09/23 [History Last Taken Unknown] calcium carbonate 500 mg calcium (1,250 mg) chewable tablet (Calcium 500) 500 mg PO BID 09/14/23 [History Last Taken Unknown] conjugated estrogens 0.625 mg/gram vaginal cream (Premarin) 1 applic vaginal QHS 09/14/23 [History Last Taken Unknown] furosemide 20 mg tablet 20 mg PO DAILY 09/14/23 [History Last Taken Unknown] glimepiride 1 mg tablet 1 mg PO DAILY 09/14/23 [History Last Taken Unknown] nitrofurantoin monohydrate/macrocrystals 100 mg capsule 100 mg PO BID 09/14/23 [History Last Taken Unknown] phenazopyridine 100 mg tablet (Pyridium) 100 mg PO Q8H PRN dysuria 09/14/23 [History Last Taken Unknown] Allergy/AdvReac Type Severity Reaction Status Date / Time cyclobenzaprine Allergy Other Verified 09/14/23 22:50 [From Flexeril] tizanidine [From Zanaflex] Allergy Other Verified 09/14/23 22:50 Family History Sister Breast cancer Grandmother Diabetes Surgical History History of lumpectomy of left breast Hx of cervical spine surgery Hx of cholecystectomy Social History housing: longterm Smoking Status: Former smoker alcohol intake: never substance use type: does not use EXAM Physical Exam Const Vital Signs: 09/14/23 22:45 09/15/23 01:27 09/15/23 03:37 Temperature 98.6 F Temperature Source Oral Pulse Rate 88 89 97 Respiratory Rate 16 15 15 Blood Pressure 113/67 113/48 L 107/57 L Blood Pressure Mean 82 69 73 Pulse Ox 98 100 100 Oxygen Delivery Method Room Air Nasal Cannula Nasal Cannula Oxygen Flow Rate (L/min) 2 2 09/15/23 04:28 09/15/23 05:12 Temperature Temperature Source Pulse Rate 96 95 Respiratory Rate 18 18 Blood Pressure 104/53 L 96/58 L Blood Pressure Mean 70 70 Pulse Ox 99 99 Oxygen Delivery Method Nasal Cannula Nasal Cannula Oxygen Flow Rate (L/min) 2 2 MDM MDM MDM Narrative Medical decision making narrative: Patient presented to the ER afebrile and normotensive satting 98% on her normal 2 L. She reported a longstanding history of recurrent abdominal pain however she also reported the pain has been controlled with [place] and now is no longer controlling her pain and she has symptoms of intermittent vaginal bleeding. Secondary to the worsening pain and new symptoms that elected for repeat laboratory studies and a repeat CT scan with IV contrast. Labs reveal chronic findings such as anemia but near patient's baseline and no lactic acidosis. CT scan now showed a 4.5 x 4 cm fluid collection within the sigmoid colon consistent with a abscess and/or perforation with compression of the bladder and uterus and concern for developing fistulas. Secondary to the abscess blood cultures were obtained and patient was started on Zosyn. The case was discussed with general surgeon on-call Dr. Delarosa. He reviewed the patient's CT scan and feels that patient may need interventional radiology for a IR drain or potentially evaluation by colorectal surgeon as well as urology and gynecology consult and he feels that this would need a higher level of care. The patient was informed of this and does agree to transfer. The case was discussed with Dr. Landon/surgery from [facility]. She agrees to accept the patient in transfer at this time to evaluate the patient and discuss interventional options. She request that the patient be continued on Zosyn. At this time the patient has been accepted but they will not have a bed until morning discharges but as she is hemodynamically stable and not showing signs of sepsis or obstruction I do not feel there is need for a emergent ER to ER transfer or transfer to a different facility and therefore patient be held in this ER until a bed is available. History & Record Review Discussion w/independent historian: Patient Lab Data Attestation: I reviewed the patient's lab results. Labs: Laboratory Results - last 24 hr 09/14/23 09/15/23 09/15/23 23:40 02:13 02:25 WBC 3.6 L RBC 2.80 L Hgb 8.3 L Hct 28.8 L MCV 102.9 H MCH 29.6 MCHC 28.8 L RDW Std Deviation 53.0 H RDW Coeff of Amanda 14.1 Plt Count 109 L MPV 8.8 Immature Gran % (Auto) 1.100 H Neut % (Auto) 70.5 H Lymph % (Auto) 19.5 [place] % (Auto) 7.8 Eos % (Auto) 0.8 Baso % (Auto) 0.3 Absolute Neuts (auto) 2.5 Absolute Lymphs (auto) 0.70 L Nucleated RBC % 0 PT 13.0 INR 1.0 APTT 29.8 Sodium 144 Potassium 4.0 Chloride 101 Carbon Dioxide 41.0 H Anion Gap 2 L BUN 21 H Creatinine 0.82 Estim Creat Clear Calc 54.98 Est GFR (MDRD) Af Amer 87 Est GFR (MDRD) Non-Af 72 BUN/Creatinine Ratio 25.5 H Glucose 134 H Lactic Acid 0.6 Calcium 9.0 Total Bilirubin 0.40 Direct Bilirubin 0.09 AST 10 L ALT 18 Alkaline Phosphatase 66 Total Protein 6.9 Albumin 2.5 L Globulin 4.4 H Lipase 24 Urine Color Yellow Urine Clarity Clear Urine pH 6.0 Ur Specific [place] 1.010 Urine Protein 30 H Urine Glucose (UA) Normal Urine Ketones Negative Urine Occult Blood 50 H Urine Nitrite Positive H Urine Bilirubin Negative Urine Urobilinogen 1 H Ur Leukocyte Esterase 100 H Urine RBC 0-5 SEEN Urine WBC 10-25 SEEN Ur Squamous Epith Cells 0 SEEN Urine Bacteria 1+ Urine Mucus 0 SEEN Radiography Diagnostic Testing: Clinical Impression(s) from Imaging Studies Abdomen/Pelvis CT 09/15/23 00:07 IMPRESSION: 1. Findings consistent with acute / persistent sigmoid diverticulitis with contained perforation or abscess. 2. Marked diffuse bladder wall thickening with mass effect from the adjacent collection may be reactive. At risk for colovesical fistula. 3. Inflammatory changes also abut the uterus. Tiny foci of air in the vagina or cervix, may be at risk for colovaginal fistula. 4. Mildly dilated small bowel in the left lower abdomen likely secondary to ileus. 5. Other findings stable including 9 cm splenic mass and multiple smaller splenic lesions, multiple pancreatic cystic lesions, and left adrenal 3 cm mass. Nodular structures in the left inferior breast. Further imaging characterization needed for these lesions, which may be benign or malignant. Electronically Signed: Cele Min MD at 2:10 EDT , ADDENDUM: 09/15/23 0222 IMPRESSION: 1. Findings consistent with acute / persistent sigmoid diverticulitis with contained perforation or abscess. 2. Marked diffuse bladder wall thickening with mass effect from the adjacent collection may be reactive. At risk for colovesical fistula. 3. Inflammatory changes also abut the uterus. Tiny foci of air in the vagina or cervix, may be at risk for colovaginal fistula. 4. Mildly dilated small bowel in the left lower abdomen likely secondary to ileus. 5. Other findings stable including 9 cm splenic mass and multiple smaller splenic lesions, multiple pancreatic cystic lesions, and left adrenal 3 cm mass. Nodular structures in the left inferior breast. Further imaging characterization needed for these lesions, which may be benign or malignant. N.B. : The above Results were Read Back by Cele Min MD to george hester, DO, and understanding confirmed on 09/15/2023 02:15:43 (ET). Electronically Signed: Cele Min MD at 2:10 EDT , Management Discussion w/another healthcare provider: Audio Visual Engineer and Other Discharge Plan Triage Chief Complaint: Abd Pain ED Provider: George Hester Dx/Rx/DC Orders Clinical Impression: Type 2 diabetes mellitus, Abscess of intestine, COPD (chronic obstructive pulmonary disease), Chronic anemia Prescriptions: No Action bisacodyl 10 mg suppository 10 mg DE DAILY PRN (Reason: constipation) cranberry 400 mg capsule 400 mg PO DAILY folic acid 1 mg tablet 1 mg PO DAILY ferrous sulfate 325 mg (65 mg iron) tablet 325 mg PO BID ondansetron HCl 4 mg tablet 4 mg PO Q8H PRN (Reason: nausea and vomiting) pantoprazole 40 mg tablet,delayed release (DR/EC) 40 mg PO DAILY Senna Plus 8.6-50 mg capsule 1 tab-cap PO BID PRN (Reason: constipation) simethicone [Gas Relief (simethicone)] 80 mg tablet,chewable 80 mg PO DAILY nystatin 100,000 unit/gram cream 1 applic TOPICAL BID simvastatin 10 mg tablet 10 mg PO QHS acetaminophen 325 mg Tablet 650 mg PO QHS potassium chloride 20 mEq tablet,ER particles/crystals 20 meq PO DAILY gabapentin 100 mg capsule 100 mg PO TID carvedilol 3.125 mg tablet 3.125 mg PO BID lisinopril 2.5 mg tablet 2.5 mg PO DAILY hydrocodone-acetaminophen 5-325 mg tablet 1 tab PO Q6H PRN PRN (Reason: Pain) 3 Days Qty: 12 0RF glimepiride 1 mg tablet 1 mg PO DAILY furosemide 20 mg tablet 20 mg PO DAILY nitrofurantoin monohyd/m-cryst 100 mg capsule 100 mg PO BID Patient Comments: stop 09/19/23 calcium carbonate [Calcium 500] 500 mg calcium (1,250 mg) tablet,chewable 500 mg PO BID phenazopyridine [Pyridium] 100 mg tablet 100 mg PO Q8H PRN (Reason: dysuria ) Premarin 0.625 mg/gram cream 1 applic vaginal QHS dicyclomine 20 mg tablet 20 mg PO BID magnesium hydroxide 400 mg/5 mL suspension 30 ml PO DAILY PRN (Reason: constipation) cyanocobalamin (vitamin B-12) [B-12 DOTS] 500 mcg tablet 500 mcg PO QHS Primary Care Provider: Jonathan Dillard Sr. Referrals: Jonathan Dillard Sr., DO [Primary Care Provider] - Disposition Disposition: Acute Care Hospital Discharge Location: [facility]
[2023-09-15] MEDS: 0.9% Normal Saline (500mL Bag) 500 ML 999 ML IV (01:23)
[2023-09-15 02:22] LABS: Mucous, Urine 0 SEEN /hpf (<or=2+); Squamous Epithelial Cells - UA 0 SEEN /hpf (5-10)
[2023-09-15 02:23] LABS: Color, Urine Yellow (Yellow); Glucose, Dipstick Normal (Normal); Ketone-Dipstick Negative (Negative); Leukocyte Esterase-Dipstick 100 /ul (Negative); Nitrite-Dipstick Positive (Negative); Occult Blood-Urine 50 /ul (Negative); Protein-Dipstick 30 mg/dl (Negative); Urine Bilirubin Dipstick Negative (Negative); Urine Clarity Clear (Clear); Urine Urobilinogen 1 mg/dl (Normal)
[2023-09-15 02:29] LABS: Bacteria 1+ /hpf (None Seen); Red Blood Cells-Urine 0-5 SEEN /hpf (0-5); White Blood Cells 10-25 SEEN /hpf (0-5)
[2023-09-15 03:10] LABS: Lactic Acid 0.6 mmol/L (0.4-1.9)
[2023-09-15] MEDS: Piperacil/Tazobactam 3.375 GM in 0.9% Normal Saline (50mL MB+) 50 ML IV ×2 (03:29→11:19)
--- NOTE | 2023-09-15 11:13 | ED.RN ---
PER DR. ABEL, HOLD HOME MEDS AT THIS TIME, PT BG CHECKED PER SHAMA CANTU. BG 86.
[2023-09-15 11:20] LABS: Bedside Glucose 87 mg/dL (74-106)
[2023-09-15] MEDS: 0.9% Normal Saline (500mL Bag) 250 ML 999 ML IV (11:28)
--- NOTE | 2023-09-15 11:52 | PCM.HP.STD ---
[facility] - [facility] General Date of Service: 09/15/23 Chief Complaint: abdominal pain, vaginal bleeding [facility] Narrative POLI CROOKS, is a 72 F with a PMH as outlined who presents via the ED on 09/15/2023 with a complaint of abdominal pain and vaginal bleeding. SHe was brought in from her SNF with abdominal pain which had been worsening. She had had repeated episodes of colitis. She had been on norco for chronic colitis. She denied any nausea, vomiting or any other symptoms. Review of systems is otherwise negative Vitals in the ED were BP of 114/67, UT of 91, RR of 23, and she was saturating at 3L of oxygen by nasal canula. CBC showed Hb of 8.3, wbc of 3.6 and platelets of 109. Chemistry was largely unremarkable with Cr of 0.82 and normal sodium and potassium levels. Urinalysis was positive for nitrites and 1+ bacteria. CT of the abdomen and pelvis showed findings consistent with acute persistent sigmoid diverticulitis with contained perforation or abscesses and marked diffuse bladder wall thickening with mass effect from the adjacent collection which may be reactive and risk of colovesical fistula with inflammatory changes also abutting the uterus with tiny foci of air in the vagina or cervix which was a risk for colovaginal fistula as well as mildly dilated small bowel in the left lower abdomen likely secondary to IBS. Findings also included a 9 cm splenic mass and multiple small splenic lesions, multiple pancreatic cystic lesions in left abdomen 3 cm mass with nodular structures in the left inferior breast. General surgery was consulted here from the ED and recommended patient be transferred to a tertiary facility for further evaluation. She was accepted at [facility] but is still awaiting a bed over 12 hours after she was accepted. She is therefore been admitted pending transfer to [facility]. 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 Chronic respiratory failure with hypoxia Colitis COPD (chronic obstructive pulmonary disease) Dysphagia Essential hypertension GERD (gastroesophageal reflux disease) History of falling Insomnia, unspecified Iron deficiency anemia Lung nodules Muscle weakness (generalized) Myocardial infarction Obstructive sleep apnea On mechanically assisted ventilation Other displaced fracture of seventh cervical vertebra, subsequent encounter for fracture with routine healing Other displaced fracture of sixth cervical vertebra, subsequent encounter for fracture with routine healing Other lack of coordination Other pancytopenia Personal history of malignant neoplasm of breast Personal history of nicotine dependence Pneumonia Primary osteoarthritis, left shoulder Primary osteoarthritis, right shoulder Pure hypercholesterolemia Respiratory failure with hypoxia Thrombocytopenia Type 2 diabetes mellitus with diabetic neuropathy Unspecified abnormalities of gait and mobility Urinary incontinence Venous insufficiency Venous insufficiency (chronic) (peripheral) Vitamin B12 deficiency Home Medications nystatin 100,000 unit/gram topical cream 1 applic topical BID Check with primary doctor 11/24/21 [History Last Taken Unknown] simvastatin 10 mg tablet 10 mg PO QHS CHOLESTEROL 11/24/21 [History Last Taken Unknown] bisacodyl 10 mg rectal suppository 10 mg UT DAILY PRN constipation 11/11/22 [History Last Taken Unknown] cranberry 400 mg capsule 400 mg PO DAILY SUPPLEMENT 11/11/22 [History Last Taken Unknown] folic acid 1 mg tablet 1 mg PO DAILY SUPPLEMENT 11/11/22 [History Last Taken Unknown] acetaminophen 325 mg tablet 650 mg PO QHS PAIN 04/19/23 [History Last Taken Unknown] carvedilol 3.125 mg tablet 3.125 mg PO BID HEART 04/19/23 [History Last Taken Unknown] gabapentin 100 mg capsule 100 mg PO TID NERVE PAIN 04/19/23 [History Last Taken Unknown] lisinopril 2.5 mg tablet 2.5 mg PO DAILY BLOOD PRESSURE 04/19/23 [History Last Taken Unknown] potassium chloride 20 mEq tablet,extended release(part/cryst) 20 meq PO DAILY SUPPLEMENT 04/19/23 [History Last Taken Unknown] ferrous sulfate 325 mg (65 mg iron) tablet 325 mg PO BID 05/04/23 [History Last Taken Unknown] ondansetron HCl 4 mg tablet 4 mg PO Q8H PRN nausea and vomiting 05/04/23 [History Last Taken Unknown] pantoprazole 40 mg tablet,delayed release 40 mg PO DAILY 05/04/23 [History Last Taken Unknown] sennosides 8.6 mg-docusate sodium 50 mg capsule (Senna Plus) 1 tab-cap PO BID PRN constipation 05/04/23 [History Last Taken Unknown] simethicone 80 mg chewable tablet (Gas Relief (simethicone)) 80 mg PO DAILY abdominal distention 05/04/23 [History Last Taken Unknown] hydrocodone-acetaminophen 5-325mg 5mg-325mg 1 tab PO Q6H PRN PRN Pain 3 days #12 TABLETS 07/14/23 [Rx Last Taken Unknown] cyanocobalamin (vitamin B-12) 500 mcg tablet (B-12 DOTS) 500 mcg PO QHS 08/09/23 [History Last Taken Unknown] dicyclomine 20 mg tablet 20 mg PO BID abdominal pain 08/09/23 [History Last Taken Unknown] magnesium hydroxide 400 mg/5 mL oral suspension 30 ml PO DAILY PRN constipation 08/09/23 [History Last Taken Unknown] calcium carbonate 500 mg calcium (1,250 mg) chewable tablet (Calcium 500) 500 mg PO BID 09/14/23 [History Last Taken Unknown] conjugated estrogens 0.625 mg/gram vaginal cream (Premarin) 1 applic vaginal QHS 09/14/23 [History Last Taken Unknown] furosemide 20 mg tablet 20 mg PO DAILY 09/14/23 [History Last Taken Unknown] glimepiride 1 mg tablet 1 mg PO DAILY 09/14/23 [History Last Taken Unknown] nitrofurantoin monohydrate/macrocrystals 100 mg capsule 100 mg PO BID 09/14/23 [History Last Taken Unknown] phenazopyridine 100 mg tablet (Pyridium) 100 mg PO Q8H PRN dysuria 09/14/23 [History Last Taken Unknown] Allergy/AdvReac Type Severity Reaction Status Date / Time cyclobenzaprine Allergy Other Verified 09/14/23 22:50 [From Flexeril] tizanidine [From Zanaflex] Allergy Other Verified 09/14/23 22:50 Family History Sister Breast cancer Grandmother Diabetes Surgical History History of lumpectomy of left breast Hx of cervical spine surgery Hx of cholecystectomy Social History housing: longterm Smoking Status: Former smoker alcohol intake: never substance use type: does not use ROS Review of Systems ROS Unobtainable: Denies due to encephalopathy Constitutional Constitutional: Reports fatigue, malaise and weakness; Denies anorexia, chills or fever(s) Eyes Eyes: Denies change in vision ENT HEENT: Denies dysphagia Cardiovascular Cardiovascular: Denies chest pain, edema, orthopnea, palpitations, paroxysmal nocturnal dyspnea or syncope Respiratory/Chest Respiratory/Chest: Denies cough, shortness of breath at rest, shortness of breath with exertion or wheezing Gastrointestinal Gastrointestinal: Reports abdominal pain Genitourinary Genitourinary: Denies dysuria Neurologic Neurologic: Denies confusion, dizziness or headache(s) Psychiatric Psychiatric: Reports anxiety Endocrine Endocrinology: Reports change in body appearance Vital Signs Vital Signs Vital Signs: 09/14/23 22:45 09/15/23 01:27 09/15/23 03:37 Temperature 98.6 F Temperature Source Oral Pulse Rate 88 89 97 Respiratory Rate 16 15 15 Blood Pressure 113/67 113/48 L 107/57 L Blood Pressure Mean 82 69 73 Pulse Ox 98 100 100 Oxygen Delivery Method Room Air Nasal Cannula Nasal Cannula Oxygen Flow Rate (L/min) 2 2 09/15/23 04:28 09/15/23 05:12 09/15/23 08:14 Temperature Temperature Source Pulse Rate 96 95 89 Respiratory Rate 18 18 18 Blood Pressure 104/53 L 96/58 L 123/61 H Blood Pressure Mean 70 70 81 Pulse Ox 99 99 98 Oxygen Delivery Method Nasal Cannula Nasal Cannula Room Air Oxygen Flow Rate (L/min) 2 2 09/15/23 10:48 09/15/23 11:05 09/15/23 11:20 Temperature Temperature Source Pulse Rate 87 89 91 Respiratory Rate 20 H 20 H 20 H Blood Pressure 109/48 L 94/52 L 99/54 L Blood Pressure Mean 68 66 69 Pulse Ox 99 99 99 Oxygen Delivery Method Room Air Nasal Cannula Nasal Cannula Oxygen Flow Rate (L/min) 3 3 09/15/23 11:35 Temperature Temperature Source Pulse Rate 91 Respiratory Rate 23 H Blood Pressure 114/67 Blood Pressure Mean 82 Pulse Ox 100 Oxygen Delivery Method Nasal Cannula Oxygen Flow Rate (L/min) 3 Weight Weight: 174 lb 6.17 oz Body Mass Index (BMI) 29.0 Physical Exam Const alert, oriented x3 and no apparent distress General Appearance: cooperative HEENT normocephalic, head/scalp atraumatic, moist oral mucous membranes and oropharynx normal Eyes PERRL and EOMs intact bilaterally Neck no lymphadenopathy and supple Lymph Lymphatic: no lymphadenopathy noted and no lymphedema noted Resp Resp Narrative: on 3L of oxygen by nasal canula. Diminished breath sounds bibasally, no wheezes or crackles Cardio regular rate, regular rhythm, S1 normal heart sound, S2 normal heart sound and no murmurs GI normal to inspection, nondistended, normoactive bowel sounds, soft to palpation, non-tender and non-distended Extremity normal capillary refill, no clubbing, cyanosis or edema and no calf tenderness Skin General Skin Exam: no breakdown Neuro CN's II-XII intact bilaterally, no focal motor deficits, no sensory deficits noted and deep tendon reflexes 2+ bilaterally Motor Exam: strength 5/5 throughout and general weakness Psych thought process normal, cooperative and affect normal Appearance: appropriate Results Lab / Micro Data 09/14/23 23:40 09/14/23 23:40 Labs: Laboratory Results - last 24 hr 09/14/23 23:40: WBC 3.6 L, RBC 2.80 L, Hgb 8.3 L, Hct 28.8 L, MCV 102.9 H, MCH 29.6, MCHC 28.8 L, RDW Std Deviation 53.0 H, RDW Coeff of Amanda 14.1, Plt Count 109 L, MPV 8.8, Immature Gran % (Auto) 1.100 H, Neut % (Auto) 70.5 H, Lymph % (Auto) 19.5, [place] % (Auto) 7.8, Eos % (Auto) 0.8, Baso % (Auto) 0.3, Absolute Neuts (auto) 2.5, Absolute Lymphs (auto) 0.70 L, Nucleated RBC % 0, PT 13.0, INR 1.0, APTT 29.8, Sodium 144, Potassium 4.0, Chloride 101, Carbon Dioxide 41.0 H, Anion Gap 2 L, BUN 21 H, Creatinine 0.82, Estim Creat Clear Calc 54.98, Est GFR (MDRD) Af Amer 87, Est GFR (MDRD) Non-Af 72, BUN/Creatinine Ratio 25.5 H, Glucose 134 H, Calcium 9.0, Total Bilirubin 0.40, Direct Bilirubin 0.09, AST 10 L, ALT 18, Alkaline Phosphatase 66, Total Protein 6.9, Albumin 2.5 L, Globulin 4.4 H, Lipase 24 09/15/23 02:13: Urine Color Yellow, Urine Clarity Clear, Urine pH 6.0, Ur Specific [place] 1.010, Urine Protein 30 H, Urine Glucose (UA) Normal, Urine Ketones Negative, Urine Occult Blood 50 H, Urine Nitrite Positive H, Urine Bilirubin Negative, Urine Urobilinogen 1 H, Ur Leukocyte Esterase 100 H, Urine RBC 0-5 SEEN, Urine WBC 10-25 SEEN, Ur Squamous Epith Cells 0 SEEN, Urine Bacteria 1+, Urine Mucus 0 SEEN 09/15/23 02:25: Lactic Acid 0.6 09/15/23 11:03: POC Glucose 87 Radiology Impression Abdomen/Pelvis CT 09/15/23 00:07 IMPRESSION: 1. Findings consistent with acute / persistent sigmoid diverticulitis with contained perforation or abscess. 2. Marked diffuse bladder wall thickening with mass effect from the adjacent collection may be reactive. At risk for colovesical fistula. 3. Inflammatory changes also abut the uterus. Tiny foci of air in the vagina or cervix, may be at risk for colovaginal fistula. 4. Mildly dilated small bowel in the left lower abdomen likely secondary to ileus. 5. Other findings stable including 9 cm splenic mass and multiple smaller splenic lesions, multiple pancreatic cystic lesions, and left adrenal 3 cm mass. Nodular structures in the left inferior breast. Further imaging characterization needed for these lesions, which may be benign or malignant. Electronically Signed: Cele Min MD at 2:10 EDT , ADDENDUM: 09/15/23221 IMPRESSION: 1. Findings consistent with acute / persistent sigmoid diverticulitis with contained perforation or abscess. 2. Marked diffuse bladder wall thickening with mass effect from the adjacent collection may be reactive. At risk for colovesical fistula. 3. Inflammatory changes also abut the uterus. Tiny foci of air in the vagina or cervix, may be at risk for colovaginal fistula. 4. Mildly dilated small bowel in the left lower abdomen likely secondary to ileus. 5. Other findings stable including 9 cm splenic mass and multiple smaller splenic lesions, multiple pancreatic cystic lesions, and left adrenal 3 cm mass. Nodular structures in the left inferior breast. Further imaging characterization needed for these lesions, which may be benign or malignant. N.B. : The above Results were Read Back by Cele Min MD to george hester DO, and understanding confirmed on 09/15/2023 02:15:43 (ET). Electronically Signed: Cele Min MD at 2:10 EDT , Assessment & Plan Assessment/Plan (1) Abscess of intestine: PLAN: Plan #Perforated diverticular disease with abscess admitted with a complaint of abdominal pain. Known to have diverticular disease Had been having persistent abdominal pain so she came into the ED where CAT scan showed findings consistent with acute persistent sigmoid diverticulitis with contained perforation or abscess and also had marked diffuse bladder wall thickening with mass effect on the adjacent collection which may be reactive and risk for colovesical fistula. She had a tiny foci of air in the vagina or cervix which may be at risk of colovaginal fistula. Also had mildly dilated small bowel in the left lower abdomen likely secondary to IBS and other stable findings including a 9 cm splenic mass and multiple small splenic lesions and multiple hepatic cystic lesions in left adrenal 3 cm mass with nodular structures in the left inferior breast. She was started on IV Zosyn. Plan was to transfer her to [facility] where she was accepted but was being admitted as there was no bed available. Continue IV Zosyn and consult general surgery. Keep NPO. #Hypertension: On lisinopril and carvedilol #Type 2 diabetes mellitus: Hold glimepiride. Keep patient NPO. Insulin sliding scale. Accu-Cheks every 6 hourly. #History of breast cancer: Says she had left breast cancer and had surgery for it. I informed her about CAT scan findings which showed some nodular structures in the left inferior breast. She does not follow-up with any oncologist. DVT prophylaxis: Lovenox CODE STATUS: Full code Patient counseled extensively about different types of CODE STATUS including full code, DNR CCA and DNR CCA. Patient elects to be full code. Total [id number] time 17 minutes. Disposition: Patient got a bed at before she could be sent to the floor from the ED and was therefore transferred to . This note therefore serves as both an admit H&P and discharge summary. Charges/Coding Visit Charges Inpatient E&M: 87171 Init Hosp L3 (discharge >30 mins [id number]) Procedures Hospitalists Procedures: 76635 Advncd Care Plan 30 Min
--- NOTE | 2023-09-15 12:54 | ED.RN ---
PER Lester CORTES, CHARGE NURSE, DISREGARD REPEAT ORDER FOR BLOOD CULTURES DUE TO PT HAVING BLOOD CULTURES DONE THIS AM.
[2023-09-15 14:29] LABS: Bedside Glucose 95 mg/dL (74-106)
--- NOTE | 2023-09-15 14:41 | CON.PCM.SX_ITS ---
Assessment & Plan Assessment/Plan (1) Colitis: PLAN: This is a 72-year-old female, with significant cardiopulmonary past medical diagnoses, who presents with persistent versus recurrent colitis that is suggestive of perforated diverticulitis with associated abscess. 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 There is also mention by radiology of possible splenic mass. Given p ho's probable need for more expertise and a multidisciplinary treatment plan, I have recommended referral to a tertiary facility for evaluation. Patient was receptive of this recommendation and is awaiting bed placement at receiving institution. For the interim agree with treatment with empiric antibiotic therapy and maintain patient with bowel rest. HPI Consult Data Date of Consult: 09/16/23 HPI Narrative Reason for Consultation: Complicated diverticulitis HPI Narrative: POLI CROOKS, is a 72 F who presents to [facility] with complaints of progressive abdominal pain. She states that the pain has gradually worsened from when she first experienced it in April of this year. She has been treated with antibiotics, but the pain persisted. She notes a recent colonoscopy with Dr. Jeronimo that had to be aborted and shares that there has been some impression that she may actually have an underlying malignancy causing her chronic inflammation. 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 In querying patient about this latter diagnosis, she reports that that she did have passage of air with urination for the first time yesterday. On noting the CT findings and hearing this history, I recommended transfer to a tertiary facility where multidisciplinary care approach can be enacted with surgery and urologic spe cialties. Patient does have a significant past medical history inclusive of chronic O2 dependence and COPD. [facility] Medical History (Updated 09/16/23 @ 16:[address] 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 Chronic respiratory failure with hypoxia Colitis COPD (chronic obstructive pulmonary disease) Dysphagia Essential hypertension GERD (gastroesophageal reflux disease) History of falling Insomnia, unspecified Iron deficiency anemia Lung nodules Muscle weakness (generalized) Myocardial infarction Obstructive sleep apnea On mechanically assisted ventilation Other displaced fracture of seventh cervical vertebra, subsequent encounter for fracture with routine healing Other displaced fracture of sixth cervical vertebra, subsequent encounter for fracture with routine healing Other lack of coordination Other pancytopenia Personal history of malignant neoplasm of breast Personal history of nicotine dependence Pneumonia Primary osteoarthritis, left shoulder Primary osteoarthritis, right shoulder Pure hypercholesterolemia Respiratory failure with hypoxia Thrombocytopenia Type 2 diabetes mellitus with diabetic neuropathy Unspecified abnormalities of gait and mobility Urinary incontinence Venous insufficiency Venous insufficiency (chronic) (peripheral) Vitamin B12 deficiency Home Medications nystatin 100,000 unit/gram topical cream 1 applic topical BID Check with primary doctor 11/24/21 [History Last Taken Unknown] simvastatin 10 mg tablet 10 mg PO QHS CHOLESTEROL 11/24/21 [History Last Taken Unknown] bisacodyl 10 mg rectal suppository 10 mg [place] DAILY PRN constipation 11/11/22 [History Last Taken Unknown] cranberry 400 mg capsule 400 mg PO DAILY SUPPLEMENT 11/11/22 [History Last Taken Unknown] folic acid 1 mg tablet 1 mg PO DAILY SUPPLEMENT 11/11/22 [History Last Taken Unknown] acetaminophen 325 mg tablet 650 mg PO QHS PAIN 04/19/23 [History Last Taken Unknown] carvedilol 3.125 mg tablet 3.125 mg PO BID HEART 04/19/23 [History Last Taken Unknown] gabapentin 100 mg capsule 100 mg PO TID NERVE PAIN 04/19/23 [History Last Taken Unknown] lisinopril 2.5 mg tablet 2.5 mg PO DAILY BLOOD PRESSURE 04/19/23 [History Last Taken Unknown] potassium chloride 20 mEq tablet,extended release(part/cryst) 20 meq PO DAILY SUPPLEMENT 04/19/23 [History Last Taken Unknown] ferrous sulfate 325 mg (65 mg iron) tablet 325 mg PO BID 05/04/23 [History Last Taken Unknown] ondansetron HCl 4 mg tablet 4 mg PO Q8H PRN nausea and vomiting 05/04/23 [History Last Taken Unknown] pantoprazole 40 mg tablet,delayed release 40 mg PO DAILY 05/04/23 [History Last Taken Unknown] sennosides 8.6 mg-docusate sodium 50 mg capsule (Senna Plus) 1 tab-cap PO BID PRN constipation 05/04/23 [History Last Taken Unknown] simethicone 80 mg chewable tablet (Gas Relief (simethicone)) 80 mg PO DAILY abdominal distention 05/04/23 [History Last Taken Unknown] hydrocodone-acetaminophen 5-325mg 5mg-325mg 1 tab PO Q6H PRN PRN Pain 3 days #12 TABLETS 07/14/23 [Rx Last Taken Unknown] cyanocobalamin (vitamin B-12) 500 mcg tablet (B-12 DOTS) 500 mcg PO QHS 08/09/23 [History Last Taken Unknown] dicyclomine 20 mg tablet 20 mg PO BID abdominal pain 08/09/23 [History Last Taken Unknown] magnesium hydroxide 400 mg/5 mL oral suspension 30 ml PO DAILY PRN constipation 08/09/23 [History Last Taken Unknown] calcium carbonate 500 mg calcium (1,250 mg) chewable tablet (Calcium 500) 500 mg PO BID 09/14/23 [History Last Taken Unknown] conjugated estrogens 0.625 mg/gram vaginal cream (Premarin) 1 applic vaginal QHS 09/14/23 [History Last Taken Unknown] furosemide 20 mg tablet 20 mg PO DAILY 09/14/23 [History Last Taken Unknown] glimepiride 1 mg tablet 1 mg PO DAILY 09/14/23 [History Last Taken Unknown] nitrofurantoin monohydrate/macrocrystals 100 mg capsule 100 mg PO BID 09/14/23 [History Last Taken Unknown] phenazopyridine 100 mg tablet (Pyridium) 100 mg PO Q8H PRN dysuria 09/14/23 [History Last Taken Unknown] Allergy/AdvReac Type Severity Reaction Status Date / Time cyclobenzaprine Allergy Other Verified 09/14/23 22:50 [From Flexeril] tizanidine [From Zanaflex] Allergy Other Verified 09/14/23 22:50 Family History Sister Breast cancer Grandmother Diabetes Surgical History History of lumpectomy of left breast Hx of cervical spine surgery Hx of cholecystectomy Social History housing: [facility] Smoking Status: Former smoker alcohol intake: never substance use type: does not use Physical Exam Const alert Constitutional Narrative: Patient is not oriented to time, but confesses this is due to her hold over in an ER room without windows General Appearance: cooperative HEENT HEENT Narrative: Nasal cannula in place GI GI Narrative: Moderate tenderness to the left lower quadrant and suprapubic positions Lab / Micro Data 09/14/23 23:40 09/14/23 23:40 Labs: Laboratory Results - last 24 hr 09/14/23 23:40: WBC 3.6 L, RBC 2.80 L, Hgb 8.3 L, Hct 28.8 L, MCV 102.9 H, MCH 29.6, MCHC 28.8 L, RDW Std Deviation 53.0 H, RDW Coeff of Amanda 14.1, Plt Count 109 L, MPV 8.8, Immature Gran % (Auto) 1.100 H, Neut % (Auto) 70.5 H, Lymph % (Auto) 19.5, Door % (Auto) 7.8, Eos % (Auto) 0.8, Baso % (Auto) 0.3, Absolute Ne uts (auto) 2.5, Absolute Lymphs (auto) 0.70 L, Nucleated RBC % 0, PT 13.0, INR 1.0, APTT 29.8, Sodium 144, Potassium 4.0, Chloride 101, Carbon Dioxide 41.0 H, Anion Gap 2 L, BUN 21 H, Creatinine 0.82, Estim Creat Clear Calc 54.98, Est GFR (MDRD) Af Amer 87, Est GFR (MDRD) Non-Af 72, BUN/Creatinine Ratio 25.5 H, Glucose 134 H, Calcium 9.0, Total Bilirubin 0.40, Direct Bilirubin 0.09, AST 10 L, ALT 18, Alkaline Phosphatase 66, Total Protein 6.9, Albumin 2.5 L, Globulin 4.4 H, Lipase 24 09/15/23 02:13: Urine Color Yellow, Urine Clarity Clear, Urine pH 6.0, Ur Specific [place] 1.010, Urine Protein 30 H, Urine Glucose (UA) Normal, Urine Ketones Negative, Urine Occult Blood 50 H, Urine Nitrite Positive H, Urine Bilirubin Negative, Urine Urobilinogen 1 H, Ur Leukocyte Esterase 100 H, Urine RBC 0-5 SEEN, Urine WBC 10-25 SEEN, Ur Squamous Epith Cells 0 SEEN, Urine Bacteria 1+, Urine Mucus 0 SEEN 09/15/23 02:25: Lactic Acid 0.6 09/15/23 11:03: POC Glucose 87 09/15/23 14:12: POC Glucose 95 Radiology Impression Abdomen/Pelvis CT 09/15/23 00:07 IMPRESSION: 1. Findings consistent with acute / persistent sigmoid diverticulitis with contained perforation or abscess. 2. Marked diffuse bladder wall thickening with mass effect from the adjacent collection may be reactive. At risk for colovesical fistula. 3. Inflammatory changes also abut the uterus. Tiny foci of air in the vagina or cervix, may be at risk for colovaginal fistula. 4. Mildly dilated small bowel in the left lower abdomen likely secondary to ileus. 5. Other findings stable including 9 cm splenic mass and multiple smaller splenic lesions, multiple pancreatic cystic lesions, and left adrenal 3 cm mass. Nodular structures in the left inferior breast. Further imaging characterization needed for these lesions, which may be benign or malignant. Electronically Signed: Cele Min MD at 2:10 EDT , ADDENDUM: 09/15/23221 IMPRESSION: 1. Findings consistent with acute / persistent sigmoid diverticulitis with contained perforation or abscess. 2. Marked diffuse bladder wall thickening with mass effect from the adjacent collection may be reactive. At risk for colovesical fistula. 3. Inflammatory changes also abut the uterus. Tiny foci of air in the vagina or cervix, may be at risk for colovaginal fistula. 4. Mildly dilated small bowel in the left lower abdomen likely secondary to ileus. 5. Other findings stable including 9 cm splenic mass and multiple smaller splenic lesions, multiple pancreatic cystic lesions, and left adrenal 3 cm mass. Nodular structures in the left inferior breast. Further imaging characterization needed for these lesions, which may be benign or malignant. N.B. : The above Results were Read Back by Cele Min MD to george hester DO, and understanding confirmed on 09/15/2023 02:15:43 (ET). Electronically Signed: Cele Min MD at 2:10 EDT , Charges/Coding Visit Charges Office Visits / Consults: 21008 ED Visit; High/Urgent Severity
--- NOTE | 2023-09-15 16:43 | ED.RN ---
THIS RN CALLED REPORT TO [facility]. REPORT GIVEN TO SHAMA BLAND AT 1637.
--- NOTE | 2023-09-15 16:52 | ED.RN ---
THIS RN GAVE REPORT TO [facility] AT 1653. PT A &OX3.
== END 2023-09-15 16:55 | disposition short-term general hospital (02) ==
PROVIDERS: Emergency Provider Emergency Medicine; PCP Internal Medicine; Visit Provider Emergency Medicine
DX: K63.0 Abscess of intestine (principal); J44.9 Chronic obstructive pulmonary disease, unspecified; D69.6 Thrombocytopenia, unspecified; E11.9 Type 2 diabetes mellitus without complications; I25.10 Atherosclerotic heart disease of native coronary artery without angina pectoris; Z87.891 Personal history of nicotine dependence; N93.9 Abnormal uterine and vaginal bleeding, unspecified; I10 Essential (primary) hypertension; E78.00 Pure hypercholesterolemia, unspecified; Z99.81 Dependence on supplemental oxygen; I25.2 Old myocardial infarction; Z85.3 Personal history of malignant neoplasm of breast; Z79.899 Other long term (current) drug therapy; K21.9 Gastro-esophageal reflux disease without esophagitis; D50.9 Iron deficiency anemia, unspecified; Z90.49 Acquired absence of other specified parts of digestive tract
CPT/HCPCS: 74177; 80048; 80076; 81001; 82962; 83605; 83690; 85025; 85610; 85730; 87040; 96361; 96365; 96366; 96375; 99285; J7040; J7050; A4216; J2405

== ENCOUNTER → 2023-10-11 | Outpatient (CLI) | payer MEDICARE, MEDICAID, SELFPAY ==
--- NOTE | 2023-10-11 10:58 | US_ITS ---
STUDY: ULTRASOUND BREAST - LEFT REASON FOR EXAM: Female, 72 years old. Six-month follow-up for left breast biopsy. TECHNIQUE: Axial and longitudinal images of the LEFT breast were performed with a high resolution ultrasound transducer. # OF IMAGES: 14 COMPARISON: Comparison is made with prior sonogram dated March 18, 2023. FINDINGS: LEFT Breast: 1.4 cm x 1.4 cm x 0.9 cm hypoechoic solid mass is seen at the 11:00 position of the breast at 2 cm from the nipple. This is unchanged. US/Breast Limited Unilateral IMPRESSION: Stable hypoechoic solid mass at the 11:00 position of the breast of 2 samples from the nipple. ASSESSMENT CATEGORY: BIRADS Category 2: Benign. A letter regarding these results will be sent to the patient by the facility within 30 days. Electronically Signed: Thomas Ahumada MD at 11:35 EST ,
== END | disposition home or self-care (01) ==
LOC: OPUS 10:57
PROVIDERS: PCP Internal Medicine; Referring Provider Surgery; Visit Provider Surgery
DX: D24.2 Benign neoplasm of left breast (principal)
CPT/HCPCS: 76642

== ENCOUNTER → 2025-09-04 04:00 | Outpatient (REF) | payer MEDICARE, BC, MEDICAID, SELFPAY ==
[2025-09-04 06:38] LABS: Hematocrit 24.7 % (37-47); Hemoglobin 7.2 g/dL (12.0-15.0); Mean Corp Hgb Conc 29.1 g/dL (32-36); Mean Corpuscular Volume 94.6 fL (81-99); Mean Platelet Vol. 10.1 fl (6.2-12.0); POSITIVE COUNT YES; Platelet Count 91 K/mm3 (150-450); RBC Distribution Width CV 14.1 % (11.6-14.6); RBC Distribution Width SD 48.7 fl (35.1-43.9); Red Blood Count 2.61 M/mm3 (4.2-5.4); White Blood Count 3.1 K/mm3 (4.4-11.0)
[2025-09-04 06:42] LABS: Scan Indicated on CBC? Y/N YES- FLAGS NOTED
[2025-09-04 06:53] LABS: AST(SGOT) 14 U/L (<=31); Alanine Aminotransfer ALT/SGPT < 5 U/L (<=34); Albumin, Serum 3.4 g/dL (3.4-4.8); Alkaline Phosphatase 61 U/L (35-104); Anion Gap 7 (5-15); BUN 16 mg/dL (4-19); BUN/Creat Ratio 29.8 RATIO (10-20); Calcium,Total 8.4 mg/dL (7.6-11.0); Carbon Dioxide 35.7 mmol/L (21.0-32.0); Chloride 104 mmol/L (98-108); Globulin 2.7 g/dL (2.2-4.2); Glucose 118 mg/dL (70-99); Potassium 3.8 mmol/L (3.3-5.1)
== END ==
LOC: OLS.ACH 04:00
PROVIDERS: PCP Internal Medicine; Referring Provider Internal Medicine; Visit Provider Internal Medicine
DX: E11.40 Type 2 diabetes mellitus with diabetic neuropathy, unspecified (principal); I50.22 Chronic systolic (congestive) heart failure
CPT/HCPCS: 36415; 80053; 83036; 85027

== ENCOUNTER → 2025-09-06 05:00 | Outpatient (REF) | payer BC, MEDICAID, SELFPAY ==
[2025-09-06 11:58] LABS: Ferritin 52 ng/mL (22-378); Vitamin B12 195 pg/mL (180-914)
[2025-09-06 12:16] LABS: Iron 35 ug/dL (50-170); Iron Binding Capacity,Unsat 147 ug/dL (228-428)
[2025-09-06 12:54] LABS: Iron Binding Capacity,Total 182 ug/dL (250-450)
== END ==
LOC: OLS.ACH 05:00
PROVIDERS: PCP Internal Medicine; Visit Provider Internal Medicine
DX: N32.1 Vesicointestinal fistula (principal)
CPT/HCPCS: 36415; 82607; 82728; 83540; 83550

== ENCOUNTER → 2025-09-09 04:00 | Outpatient (REF) | payer MEDICARE, BC, MEDICAID, SELFPAY ==
--- OUTSIDE RECORDS SUMMARY | 2025-09-09 04:13 | XMS RPT_ITS | CCD ---
Author Organization [facility] Care Team Providers Care Waitstaff Name Role Phone Ellis Martines Unavailable Unavailable PROVIDER, UNKNOWN Unavailable Unavailable Michelle Aguilar Unavailable Unavailab Kandi Zacarias Unavailable Unavailable Barber Carlisle Unavailable Unavailable Pranav Bonds Unavailable Unavailable Update Needed Unavailable Unavailable ORESTES MACHINE MAINTENANCE REPAIRER-TRAFFIC OR SYSTEM DISPATCHERBARBER Primary Care Physician ORESTES MACHINE MAINTENANCE REPAIRER-TRAFFIC OR SYSTEM DISPATCHERBARBER Primary Care Physician ORESTES MACHINE MAINTENANCE REPAIRER-TRAFFIC OR SYSTEM DISPATCHER, BARBER Primary Care Physician Orestes FARM MACHINERY ENGINE MECHANIC, FARM MACHINERY ENGINE MECHANIC-C Barber Primary Care Provider Orestes FARM MACHINERY ENGINE MECHANIC, FARM MACHINERY ENGINE MECHANIC-C Barber Referring Provider 1([facility] )[phone] Dr. Delfin Jeffries Attending Provider Orestes FARM MACHINERY ENGINE MECHANIC, FARM MACHINERY ENGINE MECHANIC-C Barber Primary Care Provider [phone] Oerstes FARM MACHINERY ENGINE MECHANIC, FARM MACHINERY ENGINE MECHANIC-C Barber Referring Provider 1([facility] )[phone] Dr. Delfin Jeffries Attending Provider Dr. Ellis Tsai Emergency Provider Dr. Rebecca Resendiz Admit Provider Dr. Rebecca Resendiz Attending Provider Dr. Rebecca Resendiz Other Provider Dr. Serge Banks Other Provider Dr. Ajit Mcgill Other Provider Dr. Martín Monique Other Provider 1([facility])[phone] Krzysztof Pennington Other Provider Unavailab rambo Richey FARM MACHINERY ENGINE MECHANIC, FARM MACHINERY ENGINE MECHANIC-C Viji Other Provider Dr. Miroslava Gonzalez Attending Provider Dr. Martín Monique Attending Provider Dr. Hernando Padron Other Provider Unavailable Dr. Thomas Ahumada Other Provider Unavaila Dr. Moise Jo Attending Provider Dr. Hernando Padron Attending Provider Unavailable Dr. Pratima Jaime Attending Provider Dr. Pratima Jaime Other Provider Dr. Serge Banks Attending Provider Dr. Rebecca Resendiz Referring Provider Orestes FARM MACHINERY ENGINE MECHANIC, FARM MACHINERY ENGINE MECHANIC-C Bradford Primary Care Provider Orestes FARM MACHINERY ENGINE MECHANIC, FARM MACHINERY ENGINE MECHANIC-C Barber Referring Provider [phone] Dr. Delfin Jeffries Attending Provider Dr. Pratima Jaime Referring Provider Dr. Sharmila Jackson Attending Provider Orestes FARM MACHINERY ENGINE MECHANIC, FARM MACHINERY ENGINE MECHANIC-C Bradford Primary Care Provider Orestes FARM MACHINERY ENGINE MECHANIC, FARM MACHINERY ENGINE MECHANIC-C Barber Referring Provider [phone] Dr. Delfin Jeffries Attending Provider Gilma ELMORE MD Jonathan Primary Care Provider Unava ilable Gilma ELMORE MD Jonathan Referring Provider Unavaila Dr. Delfin Hutchins Attending Provider Dr. Jonathan Dillard Sr. Primary Care Provider Dr. Jonathan Dillard Sr. Referring Provider Dr. Delfin Jeffries Attending Provider SOLITARIO STUBBS, DR CAMPOS Attending Unavailabl e LORSON MACHINE MAINTENANCE REPAIRER-TRAFFIC OR SYSTEM DISPATCHER, [facility] Unavail able SOLITARIO STUBBS, DR CAMPOS Attending Unavailabl e LORSON MACHINE MAINTENANCE REPAIRER-TRAFFIC OR SYSTEM DISPATCHER, [facility] Unavail able SOLITARIO STUBBS, DR CAMPOS Attending Unavailabl e LORSON MACHINE MAINTENANCE REPAIRER-TRAFFIC OR SYSTEM DISPATCHER, BARBER Primary Care Unavail able FLIGHT MACHINE MAINTENANCE REPAIRER-TRAFFIC OR SYSTEM DISPATCHER, RENETTA Attending Unavail able LORSON MACHINE MAINTENANCE REPAIRER-TRAFFIC OR SYSTEM DISPATCHER, [facility] Care Unavail able CRISSY STUBBS, DR OSEI PACHECO Attending Unav ailable LORSON MACHINE MAINTENANCE REPAIRER-TRAFFIC OR SYSTEM DISPATCHER, [facility] Care Unavail able FLIGHT MACHINE MAINTENANCE REPAIRER-TRAFFIC OR SYSTEM DISPATCHER, RENETTA Attending Unavail able LORSON MACHINE MAINTENANCE REPAIRER-TRAFFIC OR SYSTEM DISPATCHER, [facility] Care Unavail able BYRON STUBBS, TRACE Sprague Attending Unavailable LORSON MACHINE MAINTENANCE REPAIRER-TRAFFIC OR SYSTEM DISPATCHER, [facility] Care Unavail able Lorson MACHINE MAINTENANCE REPAIRER-TRAFFIC OR SYSTEM DISPATCHER, [facility] Primary Care Pr ovider Deperro Sr., Dr. Castillo Primary Care Provider Gilma Sr., Dr. Castillo Referring Provider Dr. Delfin Jeffries Attending Provider Dr. Calvin Hester Emergency Provider Dr. Lucia Jurado Attending Provider Dr. Calvin Hester Referring Provider Dr. Susy Delarosa Attending Provider VARSHA SOTELO Attending Unavail able ORESTES, [facility] Unavaila ble Lorson MACHINE MAINTENANCE REPAIRER-TRAFFIC OR SYSTEM DISPATCHER, [facility] Pr ovider Lorson MACHINE MAINTENANCE REPAIRER-TRAFFIC OR SYSTEM DISPATCHER, [facility] Pr ovider ORESTES [facility] Department Unavaila ble DELFIN MELARA Admitting Unavailable VARSHA SOTELO Attending Unavail able VARSHA SOTELO Admitting Unavail able VARSHA SOTELO Attending Unavail able ORESTES, [facility] Unavaila ble LORSON, [facility] Unavaila ble LORSON, [facility] Unavaila ble ELIDA VILLAREAL Attending Unavailable LORSON, [facility] Unavaila ble LORSON, [facility] Unavaila ble RITU HARRELL Referring Unavailable LORSON, [facility] Unavaila ble Deperro OLS, Jonathan Attending Unavailable Deperro Sr., Jonathan Primary Care Unavailable Deperro OLS, Jonathan Attending Unavailable Deperro Sr., Jonathan Primary Care Unavailable Allergies Allergy Classification Reported Allergen(s) Allergy Type Date of Onset Reaction(s) Facility (20 sources) cyclobenzaprine; Translations: [cyclobenzaprine] Drug Allergy 3 [facility] (20 sources) tiZANidine; Translations: [tizanidine] Drug Allergy 3 Unknown [facility] (6 sources) Acetaminophen / oxyCODONE; Translations: [OXYCODONE-ACETAMIN OPHEN] Drug Allergy 6 Palpitations [facility] 3 Repository (1 source) cyclobenzaprine Drug Allergy 3 [facility] Repository (1 source) tiZANidine Drug Allergy 3 [facility] Repository Medications Current Medications Medication Drug Class(es) Dates Sig (Normalized) Sig (Original) acetaminophen 325 mg oral tablet (20 sources) Start: 08-26-2023 take 1 mg by mouth three times daily acetaminophen 325 mg oral capsule mg = cap(s), Oral, TID, 0 Refill(s) Start Date: 08/26/23 Status: Ordered Start: 04-19-2023 take 650 mg by mouth at bedtim e Acetaminophen Active 650 MG PO AT BEDTIME April 18, 2023 11:00pm Start: 04-19-2023 take 325 mg by mouth once herber y Acetaminophen Active 325 MG PO DAILY April 19, 2023 12:00am take 2 tablets by mo uth once daily at bedtime acetaminophen (Tylenol) 325 mg tablet Take 2 tablets (650 mg) by mouth once daily at bedtime. Scheduled 0 Active acetaminophen 325 mg / HYDRO codone bitartrate 5 mg oral tablet (12 sources) Opioid Agonist Start: 09-27-2023 End: 10-04-2023 Start: 08-26-2023 End: 10-31-2023 HYDROcodone-acetaminophen (H ycet) 7.5-325 mg/15 mL solution mL, Oral, q6hr, 0 Refill(s), 95 0 08/26/2023 10/31/2023 Discontinued (Discontinued by another clinician) Start: 07-14-2023 take 1 tablet by yolanda th every six hours as needed Hydrocodone-Acetaminophen Active 1 TABLE T PO EVERY 6 HOURS NEEDED 12 July 143 amoxicillin 875 mg / clavulanate 125 mg oral tablet (6 sources) Penicillin-class Antibacterial Start: 09-27-2023 take 1 tablet by mouth twice daily amoxicillin-pot clavulanate (Augmentin) 875-125 mg tablet Indications: Colovaginal fistula Take 1 tablet (875 mg) by mouth 2 times a day. 60 tablet 1 09/27/2023 Active Start: 09-27-2023 take 875 mg by mouth every twelve hours 875 mg, oral, Every 12 hours scheduled, First dose on Tue09/28/23 at 0900 Suspected Indication (Select all that apply): Urinary Tract Infection Type of Therapy: Empiric Type of Urinary Tract Infection: Complicated aspirin 81 mg delayed release oral tablet (20 sources) Platelet Aggregation Inhibitor, Nonsteroidal Anti-inflammatory Drug Start: 11-15-2019 End: 01-11-2023 take 1 tablet by mouth once daily aspirin 81 mg EC tablet Take 1 tablet (81 mg) by mouth once daily. 0 11/15/2019 Active Start: 11-15-2019 aspirin 81 mg oral delayed release tablet Dose : 81 mg = 1 tab(s), Oral, Daily, 0 Refill(s) Start Date: 11/15/19 Status: Ordered Blood Glucose Test Machine (3 sources) Start: 09-09-2020 Blood Glucose Test Machine See Instructions, Dx e11.9 Use as directed Brand type per insurance or patient preference, # 1 EA, 0 Refill(s), Pharmacy: [address], 166, cm, 09/09/20 11:16:00 EDT, Height, 96.3, kg, 09/09/20 11:16:00 EDT, Dosing Weight Start Date: 09/09/20 Status: Ordered calcium carbonate 1250 mg chewable tablet (9 sources) Start: 09-14-2023 take 1 tablet by mouth twice daily Calcium Carbonate (Calcium 500) 500 mg calcium (1,250 mg) tablet,chewable Active 500 MG PO TWICE A DAY September 13, 2023 11:00pm Start: 08-26-2023 Tums mg =, Callie wed, qDay, 0 Refill(s) Start Date: 08/26/23 Status: Ordered calcium carbonat e (Tums) 200 mg calcium chewable tablet Chew 1 tablet (500 mg) 2 times a day. For gas/stomach pains. Give with breakfast and supper. 0 Active carvedilol 3.125 mg oral tablet (20 sources) alpha-Adrenergic Doris, beta-Adrenergic Doris Start: 08-26-2023 take 1 mg by mouth twice daily carvedilol 3.125 mg oral tablet mg = tab(s), Oral, BID, 0 Refill(s) Start Date: 08/26/23 Status: Ordered Start: 02-25-2023 End: 04-19-2023 take 3.125 mg by mouth twice daily Carvedilol Active 3.125 MG PO TWICE A DAY April 19, 2023 5:56pm cranberry fruit 400 mg tablet (4 sources) take 1 tablet by mouth once daily for urinary tract infection cranberry fruit 400 mg tablet Take 1 tablet by mouth once daily. For UTI prevention 0 Active Cranberry preparation (20 sources) Non-Standardized Food Allergenic Extract, Non-Standardized Plant Allergenic Extract Start: cranberry oral capsule 0 Refill(s) Start Date: 08/26/23 Status: Ordered Start: 11-11-2022 take 400 mg by mouth once herber y Cranberry Active 400 MG PO DAILY November 11, 2022 12:00am Start: 11-11-2022 take 400 mg by mouth once herber y Cranberry Active 400 MG PO DAILY November 11, 2022 1:00am Start: 11-11-2022 take 400 mg by mouth once herber y Cranberry Active 400 MG PO DAILY November 11, 2022 1:00am administer with a meal Start: 11-11-2022 take 400 mg by mouth once herber y Cranberry Active 400 MG PO DAILY November 11, 2022 12:00am administer with a meal dicyclomine hydrochloride 20 mg oral tablet (20 sources) Anticholinergic Start: 08-26-2023 take 1 mg by mouth four times daily dicyclomine 20 mg oral tablet mg = tab(s), Oral, QID, 0 Refill(s) Start Date: 08/26/23 Status: Ordered Start: 08-09-2023 take 20 mg by mouth every eight hours as needed Dicyclomine Active 20 MG PO EVERY 8 HOURS NEEDED August 09, 2023 12:00am Start: 09-26-2023 take 20 mg by mouth twice herber y Dicyclomine Active 20 MG PO TWICE A DAY August 08, 2023 11:00pm Start: 09-16-2021 End: 06-15-2023 take 20 mg by mouth twice daily Dicyclomine Discontinu ed 20 MG PO TWICE A DAY November 24, 2021 12:00am January 11, 2023 2:03pm Start: 11-22-2020 dicyclomine 10 mg oral capsule Dose : 10 mg = 1 cap(s), Oral, BID, PRN Diarrhea, # 60 cap(s), 11 Refill(s), Pharmacy: [facility], [address], cm, 09/09/20 11:16:00 EDT, Height, kg, 09/09/20 11:16:00 EDT, Dosing Weight Start Date: 11/22/20 Status: Ordered Disposable Enema (1 source) Start: 08-26-2023 Disposable Alison ma Rectal, Once, 0 Refill(s) Start Date: 08/26/23 Status: Ordered DME MISCellaneous (12 sources) Start: 09-28-2021 DME MISCellane ous See Instructions, Alcohol Pads Use as directed Dispense 90 day supply x 0 refills DX: diabetes, # 1 EA, 0 Refill(s), Pharmacy: [facility], 165, cm, 01/16/21 13:33:00 EST, Height, 94.9, kg, 09/16/21 13:29:00 EDT, Dosing Weight Start Date: 09/28/21 Status: Ordered Start: 09-23-2021 DME MISCellane ous See Instructions, True Plus Lancets check blood sugar once daily. #1 box for 90 day supply x 0 refills Dx: diabetes, # 1 EA, 3 Refill(s), Pharmacy: [facility], Diabetes, 165, cm, 01/16/21 13:33:00 EST, Height, 94.9, kg, 09/16/21... Start Date: 09/23/21 Status: Ordered Start: 04-30-2021 DME MISCellane ous See Instructions, True Plus Lancets check blood sugar once daily. #1 box for 90 day supply x 0 refills Dx: diabetes, # 1 EA, 0 Refill(s), Pharmacy: [facility], Diabetes, 165, cm, 01/16/21 13:33:00 EST, Height, 96.36, kg, ... Start Date: 04/30/21 Status: Ordered Start: 04-30-2021 DME MISCellane ous See Instructions, Alcohol Pads Use as directed Dispense 90 day supply x 0 refills DX: diabetes, # 1 EA, 0 Refill(s), Pharmacy: [facility], 165, cm, 01/16/21 13:33:00 EST, Height, 96.36, kg, 04/06/21 13:21:00 EDT, Dosing Weight Start Date: 04/30/21 Status: Ordered Start: 01-14-2021 DME MISCellane ous See Instructions, Incontinence supplies. Diagnosis: Incontinence of urine, wheelchair-bound, # 1 EA, 0 Refill(s), 96.3 Start Date: 01/14/21 Status: Ordered Start: 07-16-2020 DME MISCellane ous See Instructions, Please dispense 1 pair of diabetic shoes. Diagnosis E 11.9., # 1 EA, 0 Refill(s), 96.2 Start Date: 07/16/20 Status: Ordered docusate sodium 50 mg / sennosides, mcc 8.6 mg oral tablet (20 sources) Start: 09-23-2023 End: 10-31-2023 take 1 tablet by mouth every twenty-four hours as needed 1 tablet, oral, Daily PRN, constipation, first line, Starting on Tue09/23/23 at 0744 Start: 08-26-2023 Senexon-S Oral , qHS, 0 Refill(s) Start Date: 08/26/23 Status: Ordered Start: 05-04-2023 take 1 tablet by yolanda th twice daily Sennosides-Docusate Sodium (Senna Plus) 8.6-50 mg capsule Active 1 TAB-CAP PO TWICE A DAY May 03, 2023 11:00pm Start: 07-20-2022 take 1 tablet by yolanda th twice daily docusate-senna 50 mg-8.6 mg oral tablet Dose = 1 tab(s), Oral, BID, 0 Refill(s) Start Date: 9/6/22 Status: Ordered 0.4 ml enoxaparin sodium 100 mg/ml prefilled syringe (1 source) Low Molecular Weight Heparin Start: 09-15-2023 inject 40 mg by subcutaneous injection every twenty-four hours 40 mg, subcutaneous, Every 24 hours, First dose on Yesenia 09/15/23 at 2000 Indications: venous thrombosis estrogens, conjugated (mcc) 0.625 mg/ml vaginal cream (8 sources) Estrogen Start: 09-14-2023 Conjugated Estrogens (Conjugated Estrogens 0.625 Mg/Gram Vaginal Cream) 0.625 mg/gram cream Active 1 APPLIC VAGINAL AT BEDTIME September 13, 2023 11:00pm estrogens, conju gated, (Premarin) vaginal cream Insert 1 applicatorful vaginally at bedtime every TUE and , for vaginal bleeding, for 1 month. End date 10/15/23. 0 Active End: 10-15-2023 ferrous sulfate 200 mg oral tablet (20 sources) Start: 08-26-2023 take 1 tablet by mouth once daily Feosol 200 mg (65 mg elemental iron) oral tablet mg = tab(s), Oral, qDay, 0 Refill(s) Start Date: 08/26/23 Status: Ordered Start: 05-04-2023 take 325 mg by mouth twice daily Ferrous Sulfate Active 325 MG PO TWICE A DAY May 03, 2023 11:00pm Start: 11-11-2022 End: 04-04-2023 Ferrous Sulfate Discontinued PO November 11, 2022 12:00am April 04, 2023 1:14pm Start: 11-11-2022 End: 04-04-2023 Ferrous Sulfate Discontinued PO November 11, 2022 1:00am April 04, 2023 2:14pm Start: 11-11-2022 Ferrous Sulfat e Active PO November 11, 2022 1:00am Start: 11-11-2022 Ferrous Sulfat e Active PO November 11, 2022 12:00am Flonase 50 mcg/inh nasal spray (3 sources) Start: 10-28-2020 take 1 dose nasal route twice daily as needed Flonase 50 mcg/inh nasal spray Dose = 2 spray(s), Nostril, each, BID, PRN Allergy symptoms, # 16 gram(s), 11 Refill(s), Pharmacy: [facility] 166, cm, 09/09/20 11:16:00 EDT, Height, kg, 09/09/20 11:16:00 EDT, Dosing Weight Start Date: 10/28/20 Status: Ordered folic acid 1 mg oral tablet (20 sources) Start: 11-11-2022 take 1 mg by mouth once daily Folic Acid Active 1 MG PO DAILY November 11, 2022 12:00am Freestyle [place] 14 day sensor (1 source) Start: 09-16-2021 Freestyle Read er 14 day sensor See Instructions, 1 month supply, # 2 EA, 0 Refill(s), Pharmacy: [facility], 165, cm, 01/16/21 13:33:00 EST, Height, 94.9, kg, 09/16/21 13:29:00 EDT, Dosing Weight Start Date: 09/16/21 Status: Ordered 4 ml furosemide 10 mg/ml injection (20 sources) Loop Diuretic Start: 09-23-2023 40 mg, intrave nous, Once, On Tue09/23/23 at 2130, For 1 dose Start: 08-26-2023 take 20 mg by mouth once daily Furosemide Active 20 MG PO DAILY September 13, 2023 11:00pm Start: 02-25-2023 End: 09-14-2023 take 20 mg by mouth once daily Furosemide Discontinued 20 MG PO DAILY April 19, 2023 5:56pm September 14, 2023 10:06pm Start: 04-22-2021 End: 01-11-2023 take 20 mg by mouth twice daily Furosemide Discontinued 20 MG PO TWICE A DAY November 24, 2021 12:00am January 11, 2023 2:03pm gabapentin 100 mg oral capsule (20 sources) Anti-epileptic Agent Start: 10-17-2023 End: 10-17-2023 take 1 capsule by mouth once daily at bedtime gabapentin (Neurontin) 100 mg capsule Indications: Colovaginal fistula Take 1 capsule nightly, by mouth, at bedtime starting 3 days prior to surgery. 3 capsule 0 10/17/2023 Active Start: 08-26-2023 gabapentin Dos e : 200 mg =, Oral, 0 Refill(s), 95 Start Date: 08/26/23 Status: Ordered Start: 04-19-2023 End: 10-17-2023 take 100 mg by mouth three times daily Gabapentin Active 100 MG PO THREE TIMES A DAY April 18, 2023 11:00pm Start: 11-15-2019 End: 02-25-2023 gabapentin (Neurontin) 300 m g capsule glimepiride 1 mg oral tablet (20 sources) Sulfonylurea Start: 09-14-2023 take 1 mg by mouth once daily Glimepiride Active 1 MG PO DAILY September 13, 2023 11:00pm Start: 08-26-2023 take 1 tablet by yolanda th once daily Amaryl 1 mg oral tablet mg = tab(s), Oral, qDay, 0 Refill(s) Start Date: 08/26/23 Status: Ordered Start: 04-19-2023 End: 09-14-2023 take 1 mg by mouth once daily Glimepiride Discontinued 1 MG PO DAILY April 18, 2023 11:00pm September 14, 2023 10:05pm Start: 06-20-2022 glimepiride 4 mg oral tablet Dose : 4 mg = 1 tab(s), Oral, qDay, # 30 tab(s), 3 Refill(s), Pharmacy: [facility], Diarrhea Diabetes mellitus type 2, 165, cm, 05/04/22 10:05:00 EDT, Height, kg, 05/04/22 10:05:00 EDT, Dosing Weight Start Date: 06/20/22 Status: Ordered Start: 06-20-2013 End: 02-25-2023 take 1 tablet by mouth once daily Glimepiride (Amaryl) 1 mg tablet Discontinued 1 MG PO DAILY November 11, 2022 12:00am February 25, 2023 10:27am glucagon (rdna) 1 mg injection (20 sources) Antihypoglycemic Agent Start: 09-16-2023 1 mg, i ntramuscular, Every 15 min PRN, low blood sugar - see comments, For blood glucose less than or equal to 70 mg/dL and no IV access, Starting on Tue09/16/23 at 0017 Give until blood glucose is 100 mg/dL or greater. If patient DOES NOT HAVE secure IV access & patient is unconscious, NPO or is unable to eat or drink. Start: 11-11-2022 End: 09-14-2023 Glucagon Discontinued 1 MG I M November 11, 2022 12:00am September 14, 2023 10:21pm Start: 11-11-2022 End: 09-14-2023 Glucagon Discontinued 1 MG I M November 11, 2022 1:00am September 14, 2023 11:21pm Start: 11-11-2022 Glucagon Activ e 1 MG IM November 11, 2022 1:00am Start: 11-11-2022 Glucagon Activ e MG IM November 11, 2022 1:00am Start: 11-11-2022 Glucagon Activ e MG IM November 11, 2022 12:00am glucagon HCL (Gl ucagon, HCl, Emergency Kit) 1 mg recon soln Inject 1 mg as directed if needed. If blood glucose is less than 70 and non-responsive or NPO 0 Active Glucagon Emergency Kit for Low Blood Sugar (1 source) Start: 08-26-2023 Glucagon Emerg ency Kit for Low Blood Sugar 1 EA, Subcutaneous, AsDirected, PRN for low blood sugar, # 1 EA, 1 Refill(s) Start Date: 08/26/23 Status: Ordered lisinopril 5 mg oral tablet (20 sources) Angiotensin Converting Enzyme Inhibitor Start: 08-26-2023 lisinopril 5 mg oral tablet Dose : 5 mg = 1 tab(s), Oral, qDay, # 30 tab(s), 0 Refill(s) Start Date: 08/26/23 Status: Ordered Start: 08-20-2023 End: 10-31-2023 take 1 tablet by mouth once daily lisinopril 2.5 mg tablet Take 1 tablet (2.5 mg) by mouth once daily. 0 08/20/2023 10/31/2023 Discontinued (Discontinued by another clinician) Start: 02-25-2023 End: 04-19-2023 take 2.5 mg by mouth once daily Lisinopril Active 2.5 MG PO DAILY April 19, 2023 5:56pm 1 ml LORazepam 2 mg/ml injection (1 source) Benzodiazepine Start: 09-26-2023 0.5 mg, intravenous, Administer over 5 Minutes, Every 5 min PRN, anxiety, Starting on Tue09/26/23 at 0905, For 4 doses FOR CORONARY CTA PROCEDURE USE ONLY Contact ordering provider if patient anxious after 2 doses. Hold for altered mental status and or respiratory depression and contact ordering provider. Patient needs to follow instructions to be able to inhale and exhale on command for the exam, do not over sedate. Magnesium Hydroxide (20 sources) Start: 08-09-2023 take 1 mL by mouth once daily Magnesium Hydroxide Active 30 ML PO DAILY August 08, 2023 11:00pm Start: 08-09-2023 take 1 mL by mouth once daily Magnesium Hydroxide Active 30 ML PO DAILY August 09, 2023 12:00am Start: 11-11-2022 End: 01-11-2023 take 1 mL by mouth twice daily Magnesium Hydroxide (Mi lk Of Magnesia) 400 mg/5 mL suspension Discontinued 15 ML PO TWICE A DAY November 11, 2022 12:00am January 11, 2023 2:03pm Start: 11-11-2022 End: 01-11-2023 take 1 mL by mouth twice daily Magnesium Hydroxide (Mi lk Of Magnesia) 400 mg/5 mL suspension Discontinued 15 ML PO TWICE A DAY November 11, 2022 1:00am January 11, 2023 3:03pm Start: 11-11-2022 take 1 mL by mouth twice daily Magnesium Hydroxide (Milk Of Magnesia) 400 mg/5 mL suspension Active 15 ML PO TWICE A DAY November 11, 2022 12:00am take 30 mL by mouth every twenty-four hours as needed magnesium hydroxide (Milk of Magnesia) 400 mg/5 mL suspension Take 30 mL by mouth once daily as needed for constipation. 0 Active take 30 mL by mouth every twenty-four hours as needed melatonin 5 mg oral tablet (9 sources) Start: 07-23-2022 melatonin Dose : 5 mg = 1 tab(s), Oral, qHS, PRN Sleep, 0 Refill(s) Start Date: 07/23/22 Status: Ordered mesalamine 1200 mg delayed release oral tablet (10 sources) Aminosalicylate Start: 08-26-2023 take 1 tablet by mouth once daily mesalamine 1.2 g oral delayed release tablet gram(s) = tab(s), Oral, qDay, 0 Refill(s) Start Date: 08/26/23 Status: Ordered Start: 07-14-2023 End: 10-31-2023 mesalamine (Lialda) 1.2 gram EC tablet Start: 07-14-2023 End: 09-14-2023 take 2.4 g by mouth once daily Mesalamine Discontinued 2.4 GM PO DAILY 56 July 13, 2023 11:00pm September 14, 2023 10:26pm 24 hr metoprolol succinate 100 mg extended release oral tablet (20 sources) beta-Adrenergic Doris Start: 09-28-2023 take 1 tablet by mouth once daily metoprolol succinate XL (Toprol-XL) 100 mg 24 hr tablet Indications: Dilated cardiomyopathy (CMS/HCC) Take 1 tablet (100 mg) by mouth once daily. Do not crush or chew. Do not start before September 28, 2023. 0 09/28/2023 Active Start: 09-27-2023 take 100 mg by mouth once herber y 100 mg, oral, Daily, First dose on Tue09/27/23 at 0900 Do not crush or chew. Start: 09-26-2023 End: 09-26-2023 5 mg, intravenous, Once as n eeded, See admin instructions - Fifth dose 5 minutes after fourth dose of IV Metoprolol prior to Cardiac CT Scan if heart rate remains greater than 60 bpm and systolic blood pressure greater than 100 mmHg., Starting on Tue09/26/23 at 0925, For 1 dose FOR CORONARY CTA PROCEDURE USE ONLY Fifth dose 5 minutes after fourth dose of IV Metoprolol prior to Cardiac CT Scan if heart rate remains greater than 60 bpm and systolic blood pressure greater than 100 mmHg. Total IV dose not to exceed 25 mg. Do not administer if heart rate is less than 55 and systolic blood pressure less than 90 mmHg or allergy to beta doris. Start: 09-26-2023 End: 09-26-2023 100 mg, oral, Once, On Tue11/26/22 at 0915, For 1 dose FOR CORONARY CTA PROCEDURE USE ONLY First Dose in CDU/Floor. Vital Signs every 1 hour. Until after 30 minutes when scan completed. Do Not Administer if: heart rate is less than 55 and systolic blood pressure is less than 90 mmHg or allergic to beta doris. Start: 09-26-2023 End: 09-26-2023 5 mg, intravenous, Once as n eeded, See admin instructions - Third dose 5 minutes after second dose of IV Metoprolol prior to Cardiac CT Scan if heart rate remains greater than 60 bpm and systolic blood pressure greater than 100 mmHg., Starting on Tue09/26/23 at 0915, For 1 dose FOR CORONARY CTA PROCEDURE USE ONLY Third dose 5 minutes after second dose of IV Metoprolol prior to Cardiac CT Scan if heart rate remains greater than 60 bpm and systolic blood pressure greater than 100 mmHg. Total IV dose not to exceed 25 mg. Do not administer if heart rate is less than 55 and systolic blood pressure less than 90 mmHg or allergy to beta doris. Start: 09-26-2023 End: 09-26-2023 take 1 dose by mouth once 100 mg, oral, Once as needed , See admin instructions - To be given 1 hour after first dose if heart rate greater than 60 bpm and systolic blood pressure greater than 100 mmHg., Starting on Tue09/26/23 at 0905, For 1 dose FOR CORONARY CTA PROCEDURE USE ONLY Second dose in CDU/Floor. To be given 1 hour after first dose if heart rate greater than 60 bpm and systolic blood pressure greater than 100 mmHg. Vital Signs every 1 hour. Until after 30 minutes when scan completed. Do Not Administer if: Heart rate is less than 55 and systolic blood pressure less than 90 mmHg or allergic to beta doris. Start: 09-24-2023 End: 09-26-2023 take 50 mg by mouth every eight hours 50 mg, oral, Every 8 hours, First dose on 09/24/23 at 0715 Hold dose if systolic bp less than 90mmhg or heart rate less than 50/mt Start: 09-23-2023 End: 09-23-2023 100 mg, oral, Once, On Tue11/23/22 at 1130, For 1 dose FOR CORONARY CTA PROCEDURE USE ONLY First Dose in CDU/Floor. Vital Signs every 1 hour. Until after 30 minutes when scan completed. Do Not Administer if: heart rate is less than 55 and systolic blood pressure is less than 90 mmHg or allergic to beta doris. Start: 09-21-2023 End: 09-23-2023 take 12.5 mg by mouth once daily 12.5 mg, oral, Daily, First dose on Tue09/21/23 at 1600 Do not crush or chew. Start: 07-27-2022 End: 07-27-2022 Toprol-XL Start: 07/27/22 8: 00:00 EDT, Dose = 50 mg, = 1 tab(s), Oral, give with food/meal, 07/17/22 8:00:00 EDT Start Date: 07/27/22 Stop Date: 07/27/22 Status: Completed Start: 07-26-2022 End: 07-26-2022 Toprol-XL Start: 07/26/22 8: 00:00 EDT, Dose = 50 mg, = 1 tab(s), Oral, give with food/meal, 07/17/22 8:00:00 EDT Start Date: 07/26/22 Stop Date: 07/26/22 Status: Completed Start: 07-25-2022 End: 07-25-2022 Toprol-XL Start: 07/25/22 8: 00:00 EDT, Dose = 50 mg, = 1 tab(s), Oral, give with food/meal, 07/17/22 8:00:00 EDT Start Date: 07/25/22 Stop Date: 07/25/22 Status: Completed Start: 06-20-2022 metoprolol suc cinate 50 mg oral TABLET extended release Dose : 50 mg = 1 tab(s), Oral, qDay, # 90 tab(s), 3 Refill(s), Pharmacy: [facility], 165, cm, 05/04/22 10:05:00 EDT, Height, kg, 05/04/22 10:05:00 EDT, Dosing Weight Start Date: 06/20/22 Status: Ordered Start: 11-24-2021 End: 02-25-2023 Metoprolol Succinate Discont inued 50 PO DAILY November 24, 2021 12:00am February 25, 2023 10:27am Start: 04-22-2021 take 1 tablet by yolanda th once daily metoprolol succinate 50 mg oral TABLET extended release Dose : 50 mg =, Oral, qDay, # 90 tab(s), 3 Refill(s), Pharmacy: [facility], 165, cm, 01/16/21 13:33:00 EST, Height, kg, 04/06/21 13:21:00 EDT, Dosing Weight Start Date: 04/22/21 Status: Ordered Start: 06-11-2013 take 1 tablet by yolanda th every twenty-four hours Metoprolol Succinate ER 50 MG Oral Tablet Extended Release 24 Hour Quantity: 30 Refills: 0 Start : 11-Jun-2013 Active metroNIDAZOLE 250 mg oral tablet (14 sources) Nitroimidazole Antimicrobial Start: 10-17-2023 metroNIDAZOLE (Flagyl) 250 mg tablet Indications: Colovaginal fistula Take 1 tablet by mouth at 6pm, 7pm and 11pm the night prior to surgery. 3 tablet 0 10/17/2023 Active Start: 09-15-2023 take 500 mg intraven ously every eight hours 500 mg, intravenous, Administer over 60 Minutes, Every 8 hours, First dose on [place] 09/15/23 at 2045 Do NOT give with alcohol or drug products with significant alcohol content. Suspected Indication (Select all that apply): Abdominal Infection Type of Therapy: Empiric Type of infection: Abscess Present Start: 07-14-2023 End: 10-31-2023 metroNIDAZOLE (Flagyl) 500 m g tablet Milk of Magnesia (1 source) Start: 08-26-2023 Milk of Magnes ia mg, Oral, 0 Refill(s) Start Date: 08/26/23 Status: Ordered 24 hr mirabegron 25 mg extended release oral tablet (20 sources) beta3-Adrenergic Agonist Start: 09-09-2022 Myrbetriq 25 mg oral tablet, extended release 0 Refill(s) Start Date: 09/09/22 Status: Ordered Start: 06-20-2022 Myrbetriq 25 m g oral tablet, extended release Dose : 25 mg = 1 tab(s), Oral, qDay, # 90 tab(s), 3 Refill(s), [id number], 165, cm, 05/04/22 10:05:00 EDT, Height, kg, 05/04/22 10:05:00 EDT, Dosing Weight Start Date: 06/20/22 Status: Ordered Start: 06-20-2022 End: 10-31-2023 mirabegron (Myrbetriq) 25 mg tablet extended release 24 hr 24 hr tablet Start: 11-24-2021 End: 01-11-2023 take 1 tablet by mouth once daily Mirabegron (Myrbetriq) 50 mg tablet extended release 24 hr Discontinued 25 MG PO DAILY November 24, 2021 12:00am January 11, 2023 2:03pm Start: 04-22-2021 Myrbetriq 25 m g oral tablet, extended release Dose : 25 mg = 1 tab(s), Oral, qDay, # 90 tab(s), 3 Refill(s), Pharmacy: [facility], 165, cm, 01/16/21 13:33:00 EST, Height, kg, 04/06/21 13:21:00 EDT, Dosing Weight Start Date: 04/22/21 Status: Ordered nitroglycerin 0.4 mg sublingual tablet (3 sources) Start: 04-22-2021 nitroglycerin 0.4 mg sublingual tablet See Instructions, DISSOLVE 1 TABLET UNDER THE TONGUE NEEDED FOR CHEST PAIN EVERY 5 MINUTES UP TO 3 TIMES. IF NO RELIEF CALL 911., # 25 tab(s), 0 Refill(s), Pharmacy: [facility], 165, cm, 01/16/21 13:33:00 EST, Height, kg, ... Start Date: 04/22/21 Status: Ordered nystatin 100,000 units/g topical cream (1 source) Start: 09-16-2021 End: 12-09-2021 nystatin 100,000 units/g topical cream Apply 1 marcy, Topical, BID, X 14 day(s), # 30 gram(s), 5 Refill(s), Pharmacy: [facility], Cream, 165, cm, 01/16/21 13:33:00 EST, Height, 94.9, kg, 09/16/21 13:29:00 EDT, Dosing Weight Start Date: 09/16/21 Stop Date: 12/09/21 Status: Ordered 2 ml ondansetron 2 mg/ml injection (14 sources) Serotonin-3 Receptor Antagonist Start: 09-15-2023 take 4 mg intravenously every eight hours as needed 4 mg, intravenous, Every 8 hours PRN, nausea/vomiting, first line, Starting on [place] 09/15/23 at 1946 1st Line. Give IV if patient is unable to take orally. If inadequate response within 60 minutes, proceed to next-line agent for same PRN reason or contact provider if no further options ordered. When administering via IV Push, administer over 3-5 minutes. Start: 08-26-2023 Zofran 0 Refil l(s) Start Date: 08/26/23 Status: Ordered Start: 05-04-2023 End: 10-31-2023 take 4 mg by mouth every eight hours Ondansetron Hcl Active 4 MG PO Q8H May 03, 2023 11:00pm Oxygen (3 sources) Start: 12-24-2019 oxygen oxygen, 2L/NC, Nasal, Daily, 0 Refill(s), 99.5 Start Date: 12/24/19 Status: Ordered pantoprazole 40 mg delayed release oral tablet (20 sources) Proton Pump Inhibitor Start: 07-20-2022 take 40 mg by mouth once daily Pantoprazole Active 40 MG PO DAILY May 03, 2023 11:00pm phenazopyridine hydrochloride 100 mg oral tablet (6 sources) Start: 09-14-2023 End: 10-31-2023 take 1 tablet by mouth every eight hours Phenazopyridine (Pyridium) 100 mg tablet Active 100 MG PO Q8H September 13, 2023 11:00pm sacubitril 24 mg / valsartan 26 mg oral tablet (6 sources) Angiotensin 2 Receptor Doris Start: 09-27-2023 Start: 09-26-2023 take 0.5 tablet by m outh twice daily sacubitriL-valsartan (Entresto) 24-26 mg tablet Indications: Dilated cardiomyopathy (CMS/HCC) Take 0.5 tablets by mouth 2 times a day. 0 09/27/2023 Active simethicone 80 mg chewable tablet (15 sources) Start: 09-23-2023 End: 10-31-2023 take 1 tablet by mouth every six hours as needed 80 mg, oral, Every 6 hours PRN, flatulence, Starting on 09/23/23 at 0744 Start: 05-04-2023 take 1 tablet by yolanda once daily Simethicone (Gas Relief (Simethicone)) 80 mg tablet,chewable Active 80 MG PO DAILY May 03, 2023 11:00pm Start: 05-04-2023 Simethicone (G as Relief (Simethicone)) 80 mg tablet,chewable Active 80 MG PO 2 to 4 times per day May 04, 2023 12:00am simvastatin 10 mg oral tablet (20 sources) HMG-CoA Reductase Inhibitor Start: 06-20-2013 take 10 mg by mouth at bedtime Simvastatin Active 10 MG PO AT BEDTIME November 24, 2021 12:00am vitamin B12 (20 sources) Vitamin B12 Start: 08-26-2023 Vitamin B12 0 Refill(s) Start Date: 08/26/23 Status: Ordered Start: 08-09-2023 take 1 tablet by yolanda at bedtime Cyanocobalamin (Vitamin B-12) (B-12 Dots) 500 mcg tablet Active 500 MCG PO AT BEDTIME August 08, 2023 11:00pm Start: 08-09-2023 take 2 tablets by mo [facility] once daily Cyanocobalamin (Vitamin B-12) (B-12 Dots) 500 mcg tablet Active 1000 MCG PO DAILY August 09, 2023 12:00am Start: 11-11-2022 End: 05-04-2023 take 1000 ug by mouth once daily Cyanocobalamin (Vitamin B-12) Discontinued 1000 MCG PO DAILY November 11, 2022 12:00am May 04, 2023 1:28pm End: 10-31-2023 take 1 tablet by mouth once daily in the morning cyanocobalamin (Vitamin B-12) 1,000 mcg tablet Take 1 tablet (1,000 mcg) by mouth once daily in the morning. 0 10/31/2023 Discontinued (Discontinued by another clinician) (2 sources) Start: 09-27-2023 End: 09-27-2023 Completed/Discontinued Medications Medication Drug Class(es) Dates Sig (Normalized) Sig (Original) albuterol 0.833 mg/ml / ipratropium bromide 0.167 mg/ml inhalation solution (17 sources) Anticholinergic, beta2-Adrenergic Agonist Start: 02-25-2023 End: 10-31-2023 ipratropium-albute roL (Duo-Neb) 0.5-2.5 mg/3 mL nebulizer solution Start: 02-25-2023 End: 05-04-2023 take 1 mL by inhalation every eight hours Ipratropium-Albuterol Discontinued 3 ML INHALATION Q8H 0 30 February 24, 2023 11:00pm May 04, 2023 1:28pm bisacodyl 5 mg delayed release oral tablet (20 sources) Stimulant Laxative Start: 10-17-2023 End: 10-31-2023 take 2 tablets by mouth once daily bisacodyl (Dulcolax, bisacodyl,) 5 mg EC tablet Indications: Colovaginal fistula Take 10mg, by mouth at 3pm and 9pm the day prior to surgery. 4 tablet 0 10/17/2023 10/31/2023 Discontinued (Discontinued by another clinician) Start: 09-20-2023 End: 09-20-2023 take 10 mg by mouth once 10 mg, oral, Once, On e at 2100, For 1 dose Do not give within 1 hour of antacids, milk, or dairy products. Do not crush, chew, or split. Start: 08-26-2023 take 1 mg by mouth o nce daily bisacodyl 5 mg oral tablet mg = tab(s), Oral, qDay, 0 Refill(s) Start Date: 08/26/23 Status: Ordered Start: 11-11-2022 Bisacodyl Acti ve 10 MG RC DAILY November 11, 2022 12:00am calcium chloride 0.0014 meq/ml / potassium chloride 0.004 meq/ml / sodium chloride 0.103 meq/ml / sodium lactate 0.028 meq/ml injectable solution (1 source) Start: 09-15-2023 End: 09-17-2023 take 50 mL intravenously every hour 50 mL/hr, intravenous, Continuous, Starting on [place] 09/15/23 at 2000, Phase II/On Unit cefdinir 300 mg oral capsule (20 sources) Cephalosporin Antibacterial Start: 12-01-2021 End: 01-11-2023 take 300 mg by mouth twice daily Cefdinir Discontinued 300 MG PO TWICE A DAY December 01, 2021 12:00am January 11, 2023 2:03pm cefTRIAXone 1000 mg injection (2 sources) Cephalosporin Antibacterial Start: 09-25-2023 End: 09-28-2023 1 g, intravenous, at 100 mL/hr, Administer over 30 Minutes, Every 24 hours, First dose on [place] 09/25/23 at 1345 premix bag Suspected Indication (Select all that apply): Gynecological/Pel gigi Type of Therapy: Empiric Type of infection: Abscess Present Start: 09-15-2023 End: 09-23-2023 1 g, intravenous, at 100 mL/ hr, Administer over 30 Minutes, Every 24 hours, First dose on [place] 09/15/23 at 2045 premix bag Suspected Indication (Select all that apply): Abdominal Infection Type of Therapy: Empiric Type of infection: Abscess Present ciprofloxacin 500 mg oral tablet (8 sources) Quinolone Antimicrobial Start: 07-14-2023 End: 09-14-2023 take 1 tablet by mouth every twelve hours Ciprofloxacin Hcl (Cipro) 500 mg tablet Discontinued 500 MG PO Q12H July 13, 2023 11:00pm September 14, 2023 10:24pm dexamethasone 6 mg oral tablet (20 sources) Corticosteroid Start: 12-01-2021 End: 01-11-2023 take 6 mg by mouth once daily Dexamethasone Discontinued 6 MG PO DAILY December 01, 2021 12:00am January 11, 2023 2:03pm diclofenac potassium 50 mg oral tablet (20 sources) Nonsteroidal Anti-inflammatory Drug Start: 04-22-2021 End: 01-11-2023 take 50 mg by mouth once daily Diclofenac Potassium Discontinued 50 MG PO DAILY November 24, 2021 12:00am January 11, 2023 2:03pm diphenhydrAMINE hydrochloride 25 mg oral capsule (1 source) Histamine-1 Receptor Antagonist Start: 09-22-2023 End: 09-22-2023 take 25 mg by mouth once 25 mg, oral, Once, On [place] 09/22/23 at 0130, For 1 dose docusate sodium 100 mg oral capsule (20 sources) Start: 07-20-2022 End: 09-14-2023 take 100 mg by mouth once daily Docusate Sodium Discontinued 100 MG PO DAILY February 25, 2023 10:30am September 14, 2023 10:26pm estradiol 0.1 mg/ml vaginal cream (12 sources) Estrogen Start: 03-01-2022 End: 02-24-2023 estradiol 0.1 mg/g vaginal cream Dose = 1 appl, Vaginal, 2X/week, # 42.5 gram(s), 11 Refill(s), Pharmacy: [facility], 165, cm, 01/06/22 9:22:00 EST, Height Start Date: 03/01/22 Stop Date: 02/24/23 Status: Ordered End: 10-31-2023 estradiol (Estrace) 0.01 % ( 0.1 mg/gram) vaginal cream fluticasone (2 sources) Corticosteroid Start: 10-03-2013 End: 10-31-2023 fluticasone (Flovent Diskus) 100 mcg/actuation diskus inhaler Inhale. 0 10/03/2013 10/31/2023 Discontinued (Discontinued by another clinician) Start: 10-03-2013 Flovent Diskus 100 MCG/BLIST Inhalation Aerosol Powder Breath Activated Quantity: 60 Refills: 0 Start : 03-Oct-2013 Active fluticasone / salmeterol (1 source) Corticosteroid, beta2-Adrenergic Agonist End: 10-31-2023 take 1 puff(s) by inhalation every twelve hours fluticasone propion-salmeteroL (Advair Diskus) 250-50 mcg/dose diskus inhaler Inhale 1 puff every 12 hours. 0 10/31/2023 Discontinued (Discontinued by another clinician) 150 ml glucose 50 mg/ml injection (3 sources) Start: 09-19-2023 End: 09-20-2023 take 75 mL intravenously every hour 75 mL/hr, intravenous, Continuous, Starting on Tue09/19/23 at 1500, For 1 day Start: 09-16-2023 25 g, intraven ous, Every 15 min PRN, For blood glucose less than or equal to 40 mg/dL, Starting on Tue09/16/23 at 0017 May repeat until blood glucose level reaches 100 mg/dL or greater. Push 2 - 3 mL/minute if patient has secure IV access. Start: 09-16-2023 0.3 g/kg/hr 74 .8 kg (224.4 mL/hr), intravenous, Once as needed, For blood glucose less than 70 mg/dL after 30 minutes of intervention. Discontinue once blood glucose reaches 100 mg/dL., Starting on Tue09/16/23 at 0017, For 1 dose Discontinue once blood glucose reaches 100 mg/dL. heparin 5000 units/mL injection (9 sources) Start: 07-20-2022 inject 1 mL by subcutaneous injection every eight hours heparin 5000 units/mL injection Dose : 5,000 unit(s) = 1 mL, Subcutaneous, q8h, 0 Refill(s) Start Date: 07/20/22 Status: Ordered 1 ml HYDROmorphone hydrochloride 1 mg/ml cartridge (2 sources) Opioid Agonist Start: 09-15-2023 End: 09-18-2023 take 0.1 mg intravenously every four hours as needed 0.1 mg, intravenous, Every 4 hours PRN, pain moderate (4-6), first line, Starting on Tue09/15/23 at 2033 Start: 09-15-2023 End: 09-18-2023 take 0.2 mg intravenously every four hours as needed 0.2 mg, intravenous, Every 4 hours PRN, pain severe (7-10), first line, Starting on Tue09/15/23 at 2033 insulin lispro 100 unt/ml injectable solution (12 sources) Insulin Analog Start: 09-21-2023 End: 09-24-2023 0-5 Units, subcutaneous, 4 t imes daily before meals and nightly, First dose (after last modification) on Tue09/21/23 at 2100 Insulin Lispro Corrective Scale #1 Hypoglycemia protocol Call LIP unit(s) if Blood Glucose is between 0 - 70 mg/dL 0 unit(s) if Blood glucose is between 71-150 1 unit(s) if Blood glucose is between 151-200 2 unit(s) if Blood glucose is between 201-250 3 unit(s) if Blood glucose is between 251-300 4 unit(s) if Blood glucose is between 301-350 5 unit(s) if Blood glucose is between 351-400 Notify provider unit(s) if Blood Glucose is greater than 400 mg/dL Start: 09-16-2023 End: 09-21-2023 0-5 Units, subcutaneous, Jocelynn ry 4 hours, First dose on Tue09/16/23 at 0030 Insulin Lispro Corrective Scale #1 Hypoglycemia protocol Call LIP unit(s) if Blood Glucose is between 0 - 70 mg/dL 0 unit(s) if Blood glucose is between 71-150 1 unit(s) if Blood glucose is between 151-200 2 unit(s) if Blood glucose is between 201-250 3 unit(s) if Blood glucose is between 251-300 4 unit(s) if Blood glucose is between 301-350 5 unit(s) if Blood glucose is between 351-400 Notify provider unit(s) if Blood Glucose is greater than 400 mg/dL Start: 07-20-2022 HumaLOG 100 un its/mL subcutaneous solution Give 0-10 units/dose, Subcutaneous, TIDAC, 0 Refill(s) Start Date: 07/20/22 Status: Ordered Start: 07-20-2022 End: 10-31-2023 insulin lispro (HumaLOG U-10 0 Insulin) 100 unit/mL injection Give 0-10 units/dose, Subcutaneous, TIDAC, 0 Refill(s) 0 07/20/2022 10/31/2023 Discontinued (Discontinued by another clinician) L. acidophilus-L. rhamnosus (Probiotic) 15 billion cell capsule (2 sources) Start: 09-27-2023 End: 10-31-2023 take 1 capsule by mouth once daily L. acidophilus-L. rhamnosus (Probiotic) 15 billion cell capsule Indications: Dilated cardiomyopathy (CMS/HCC) Take 1 capsule by mouth once daily. For 7 days ending 09/20/23. ([employer] Ultimate Jie Probiotic 15 BILLION per SNF list) 0 09/27/2023 10/31/2023 Discontinued (Discontinued by another clinician) Start: 09-27-2023 take 1 capsule by [facility] once daily L. acidophilus-L. rhamnosus (Probiotic) 15 billion cell capsule Indications: Dilated cardiomyopathy (CMS/HCC) Take 1 capsule by mouth once daily. For 7 days ending 09/20/23. ([employer] Ultimate Jie Probiotic 15 BILLION per SNF list) 0 09/27/2023 Active lidocaine hydrochloride 0.02 mg/mg topical gel (1 source) Antiarrhythmic, Amide Local Anesthetic Start: 09-16-2023 End: 09-16-2023 1 Application, urethral, Once, On Tue09/16/23 at 2230, For 1 dose 300 ml linezolid 2 mg/ml injection (1 source) Oxazolidinone Antibacterial Start: 09-23-2023 End: 09-23-2023 take 600 mg intravenously every twelve hours 600 mg, intravenous, Administer over 120 Minutes, Every 12 hours, First dose on Tue09/23/23 at 0745, For 1 day Suspected Indication (Select all that apply): Urinary Tract Infection Type of Therapy: Definitive, Based on Culture Type of Urinary Tract Infection: Complicated losartan potassium 50 mg oral tablet (20 sources) Angiotensin 2 Receptor Doris Start: 09-21-2023 End: 09-26-2023 take 25 mg by mouth once daily 25 mg, oral, Daily, First dose on Tue09/21/23 at 1600 Start: 01-21-2023 End: 10-31-2023 take 1 tablet by mouth once daily losartan (Cozaar) 25 mg tablet Take 1 tablet (25 mg) by mouth once daily. 0 01/21/2023 10/31/2023 Discontinued (Discontinued by another clinician) Start: 09-16-2021 End: 02-25-2023 take 100 mg by mouth once daily Losartan Discontinued 100 MG PO DAILY November 24, 2021 12:00am February 25, 2023 10:27am Start: 04-22-2021 losartan 50 mg oral tablet Dose : 50 mg = 1 tab(s), Oral, Daily, # 90 tab(s), 3 Refill(s), Pharmacy: [facility], 165, cm, 01/16/21 13:33:00 EST, Height, kg, 04/06/21 13:21:00 EDT, Dosing Weight Start Date: 04/22/21 Status: Ordered Start: 06-20-2013 Losartan Potas sium 50 MG Oral Tablet Quantity: 30 Refills: 0 Start : 20-Jun-2013 Active 50 ml magnesium sulfate 40 mg/ml injection (1 source) Start: 09-18-2023 End: 09-18-2023 2 g, intravenous, at 25 mL/hr, Administer over 2 Hours, Once, On 11/5/23 at 0915, For 1 dose meloxicam 7.5 mg oral tablet (1 source) Nonsteroidal Anti-inflammatory Drug Start: 07-09-2013 Meloxicam 7.5 MG Oral Tablet Quantity: 30 Refills: 0 Start : 09-Jul-2013 Active metFORMIN hydrochloride 500 mg oral tablet (20 sources) Biguanide Start: 04-22-2021 End: 01-11-2023 take 500 mg by mouth twice daily Metformin Discontinued 500 MG PO TWICE A DAY November 24, 2021 12:00am January 11, 2023 2:03pm nitrofurantoin, macrocrystals 25 mg / nitrofurantoin, monohydrate 75 mg oral capsule (19 sources) Nitrofuran Antibacterial Start: 09-22-2023 End: 09-28-2023 take 100 mg by mouth every twelve hours 100 mg, oral, Every 12 hours scheduled, First dose (after last modification) on Tue09/23/23 at 2100, For 5 days Suspected Indication (Select all that apply): Urinary Tract Infection Type of Therapy: Definitive, Based on Culture Type of Urinary Tract Infection: Complicated Start: 04-19-2023 End: 09-20-2023 take 100 mg by mouth twice daily Nitrofurantoin Monohyd/M-Cryst Active 100 MG PO TWICE A DAY September 13, 2023 11:00pm nitroglycerin 0.4 mg sublingual tablet (20 sources) Nitrate Vasodilator Start: 09-26-2023 End: 09-26-2023 0.8 mg, sublingual, Once, On 09/26/23 at 0915, For 1 dose FOR CORONARY CTA PROCEDURE USE ONLY To be given upon arrival to Cardiac CT scan. Do Not Administer if heart rate is less than 55 and systolic blood pressure is less than 90 mmHg, if recent (48 hours) use of Phosphodiesterse-5 inhibitors for erectile dysfunction-Avanafil (Stendra), Sildenafil (Viagra, Revatio), Tadafil (Adcirca, Cialis), or Vardenafil (Levitra, Staxyn), hypersensitivity to organic nitrates, symptomatic hypotension. Start: 07-11-2022 End: 10-31-2023 nitroglycerin (Nitrostat) 0. [address] 1 tablet (0.4 mg) under the tongue every 5 minutes if needed for chest pain. 0 07/11/2022 10/31/2023 Discontinued (Discontinued by another clinician) Start: 11-24-2021 End: 01-11-2023 Nitroglycerin Discontinued 0 .4 MG SL November 24, 2021 12:00am January 11, 2023 2:03pm Nitroglycerin FAUST BL as needed Refills: 0 Active nystatin 100 unt/mg topical powder (20 sources) Polyene Antifungal Start: 07-20-2022 End: 10-31-2023 Nystop 100,000 unit/gram powder Start: 11-24-2021 Nystatin Activ e 1 APPLIC TOPICAL TWICE A DAY November 24, 2021 12:00am omeprazole 20 mg delayed release oral capsule (20 sources) Proton Pump Inhibitor Start: 04-29-2021 End: 05-04-2023 take 20 mg by mouth once daily Omeprazole Discontinued 20 MG PO DAILY November 24, 2021 12:00am May 04, 2023 1:28pm Start: 08-22-2013 Omeprazole 20 MG Oral Capsule Delayed Release Once daily Refills: 0 Start : 22-Aug-2013 Active oxybutynin chloride 5 mg oral tablet (20 sources) Cholinergic Muscarinic Antagonist Start: 04-22-2021 End: 01-11-2023 take 5 mg by mouth once daily Oxybutynin Chloride Discontinued 5 MG PO DAILY November 24, 2021 12:00am January 11, 2023 2:03pm Start: 06-26-2013 Oxybutynin Chl oride 5 MG Oral Tablet Quantity: 90 Refills: 0 Start : 26-Jun-2013 Active End: 10-31-2023 take 1 tablet by mouth once daily oxybutynin XL (Ditropan-XL) 5 mg 24 hr tablet Take 1 tablet (5 mg) by mouth once daily. 0 10/31/2023 Discontinued (Discontinued by another clinician) oxyCODONE hydrochloride 5 mg oral tablet (20 sources) Opioid Agonist Start: 09-18-2023 take 10 mg by mouth every four hours as needed 10 mg, oral, Every 4 hours PRN, pain severe (7-10), first line, Starting on 09/18/23 at 2019 If ordered PRN for pain, nurse is permitted to administer this medication for higher pain scores based on patient preference? Yes Start: 09-18-2023 End: 10-31-2023 oxyCODONE (Roxicodone) 5 mg immediate release tablet Start: 11-11-2022 End: 02-25-2023 take 5 mg by mouth every six hours Oxycodone Discontinued 5 MG PO EVERY 6 HOURS November 11, 2022 12:00am February 25, 2023 10:28am Start: 07-20-2022 oxyCODONE 5 mg oral tablet ( IMMEDIATE release ) Dose : 5 mg = 1 tab(s), Oral, q6hr, PRN Pain, scale 4-10, 0 Refill(s), 98.7 Start Date: 07/20/22 Status: Ordered polyethylene glycol 3350 37264 mg powder for oral solution (20 sources) Osmotic Laxative Start: 10-17-2023 End: 10-31-2023 polyethylene glycol (Glycolax, Miralax) 17 gram packet Indications: Colovaginal fistula Mix 14 packets of miralax powder with 2 liters of clear liquid of your choice. Please complete by midnight 14 packet 0 10/17/2023 10/31/2023 Discontinued (Discontinued by another clinician) Start: 07-20-2022 polyethylene g lycol 3350 Oral, qDay, 0 Refill(s) Start Date: 07/20/22 Status: Ordered Start: 07-20-2022 polyethylene g lycol 3350 Oral, qDay, PRN Constipation, 0 Refill(s) Start Date: 07/20/22 Status: Ordered polyethylene glycol 3350 985691 mg / potassium chloride 2970 mg / sodium bicarbonate 6740 mg / sodium chloride 5860 mg / sodium sulfate 52813 mg powder for oral solution (1 source) Osmotic Laxative Start: 08-16-2023 End: 10-31-2023 polyethylene glycol 236-22.74-6.74 -5.86 gram solution 100 ml potassium chloride 0.2 meq/ml injection (20 sources) Start: 09-18-2023 End: 09-18-2023 take 20 mEq intravenously every two hours 20 mEq, intravenous, at 50 mL/hr, Administer over 2 Hours, Every 2 hours, First dose (after last reorder) on 09/18/23 at 1645, For 2 doses Total dose is 40 mEq via peripheral line. Start: 09-17-2023 End: 09-17-2023 20 mEq, intravenous, at 50 m L/hr, Administer over 2 Hours, Once, On 09/17/23 at 1530, For 1 dose Via peripheral line Start: 08-26-2023 potassium chlo ride 0 Refill(s) Start Date: 08/26/23 Status: Ordered Start: 04-19-2023 take 20 mEq by mouth once daily Potassium Chloride Active 20 MEQ PO DAILY April 18, 2023 11:00pm prochlorperazine 5 mg oral tablet (1 source) Phenothiazine Start: 08-27-2013 Prochlorperazine Maleate 5 MG Oral Tablet Refills: 0 Start : 27-Aug-2013 Active sodium phosphate, dibasic 59.3 mg/ml / sodium phosphate, monobasic 161 mg/ml enema (1 source) tiotropium 0.018 mg inhalation powder (1 source) Anticholinergic End: 10-31-2023 take 1 capsule by inhalation once daily tiotropium (Spiriva) [address] 1 capsule (18 mcg) into inhaler and inhale once daily. 0 10/31/2023 Discontinued (Discontinued by another clinician) (1 source) Start: 09-26-2023 End: 09-26-2023 90 mL, intravenous, Once in imaging, Starting on Tue09/26/23 at 1339, For 1 dose (1 source) Start: 09-21-2023 End: 09-21-2023 inject 15 mL intravenously once 15 mL, intravenous, Once in imaging, Starting on Tue09/21/23 at 0839, For 1 dose Administer undiluted as rapid I.V. bolus injection (1 source) Start: 09-21-2023 End: 09-21-2023 Starting on Tue09/21/23 at 0729, For 1 dose Created by cabinet override (1 source) Start: 09-19-2023 End: 09-20-2023 0.5-10 mL of dilution, intravenous, Once in imaging, Starting on 09/19/23 at 1150, For 1 dose, CV Medications Contrast - for use by imaging provider only. Prior to administration, Definity product must be activated. First, bring vial to room temperature. Then, shake vial for 45 seconds. Do not use if the 45 second activation cycle has not been completed. Following activation, the product will appear as a milky white suspension and may be used immediately. If not used within 5 minutes of activation, re-suspend by inverting and shaking the vial for 10 seconds. Discard unused product. Administratio n: Dilute 1.3 mL of activated DEFINITY with 8.7 mL of normal saline in a 10 mL syringe. Injec t 0.5 mL of diluted DEFINITY when notified the images/film are unclear to enhance view of Left Ventricular borders. Repea t 0.5 mL of DEFINITY until clear images are obtained, not to exceed 10 mLs. Once images are obtained or limit of medication is reached, flush line with 10 mL of Normal Saline. Problems Active Problems Problem Classification Problem Date Documented Da te Episodic/Chronic Abdominal pain (5 sources) Right sided abdominal pain; Translations: [Unspecified abdominal pain] Onset: 3 10-11-2023 Episodic Acute and unspecified renal failure (6 sources) Injury of kidney; Translations: [Acute kidney failure, unspecified] Episodic Bacterial infection; unspecified site (1 source) Infection due to Escherichia coli; Translations: [Unspecified Escherichia coli [E. coli] as the cause of diseases classified elsewhere] Episodic Chronic obstructive pulmonary disease and bronchiectasis (20 sources) Chronic obstructive lung disease; Translations: [Chronic obstructive pulmonary disease, unspecified] Onset: 3 02-21-2014 Chronic Coagulation and hemorrhagic disorders (20 sources) Thrombocytopenic disorder; Translations: [Thrombocytopenia, unspecified] Onset: 3 Chronic Congestive heart failure; nonhypertensive (20 sources) Congestive heart failure; Translations: [Heart failure, unspecified] Onset: 3 02-19-2023 Chronic Deficiency and other anemia (20 sources) Chronic anemia; Translations: [Anemia, unspecified] Onset: 3 09-09-2020 Episodic Deficiency and other anemia (20 sources) Iron deficiency anemia; Translations: [Iron deficiency anemia, unspecified] 02-18-2023 Episodic Deficiency and other anemia (20 sources) Iron deficiency anemia, unspecified; Translations: [Iron deficiency anemia, unspecified] Episodic Deficiency and other anemia (16 sources) Anemia; Translations: [Anemia, unspecified] 02-19-2023 Episodic Deficiency and other anemia (7 sources) Anemia, unspecified; Translations: [Anemia, unspecified] 02-25-2023 Episodic Diabetes mellitus without complication (11 sources) Diabetes mellitus; Translations: [Type 2 diabetes mellitus without complication] Onset: 6 02-21-2014 Chronic Diabetes mellitus without complication (7 sources) Hyperglycemia; Translations: [Hyperglycemia, unspecified] Onset: 2 Episodic Disorders of lipid metabolism (19 sources) Hyperlipidemia; Translations: [Hyperlipidemia, unspecified] Onset: 6 08-27-2019 Chronic Diverticulosis and diverticulitis (14 sources) Diverticulitis; Translations: [Diverticulitis of intestine, part unspecified, without perforation or abscess without bleeding] Onset: 3 07-14-2023 Chronic E Codes: Fall (1 source) Fall; Translations: [Unspecified fall, initial encounter] Onset: 2 Episodic Esophageal disorders (20 sources) Gastroesophageal reflux disease; Translations: [Gastro-esophageal reflux disease without esophagitis] Onset: 3 02-21-2014 Chronic Essential hypertension (20 sources) Essential hypertension; Translations: [Essential (primary) hypertension] Onset: 6 05-03-2018 Chronic Fluid and electrolyte disorders (8 sources) Hypernatremia; Translations: [Mild dehydration] 09-15-2021 Episodic Genitourinary symptoms and ill-defined conditions (19 sources) Urinary incontinence; Translations: [Unspecified urinary incontinence] Onset: 3 03-10-2020 Chronic Genitourinary symptoms and ill-defined conditions (6 sources) Blood in urine; Translations: [Hematuria, unspecified] 09-08-2023 Episodic Intestinal obstruction without hernia (5 sources) Stricture of colon; Translations: [Other intestinal obstruction unspecified as to partial versus complete obstruction] Onset: 3 08-29-2023 Episodic Joint disorders and dislocations; trauma-related (2 sources) Traumatic dislocation of joint of cervical vertebra; Translations: [Dislocation of C6/C7 cervical vertebrae, initial encounter] Episodic Malaise and fatigue (6 sources) Asthenia; Translations: [Weakness] 08-10-2023 Episodic Noninfectious gastroenteritis (10 sources) Colitis; Translations: [Noninfective gastroenteritis and colitis, unspecified] 07-14-2023 Episodic Nonmalignant breast conditions (20 sources) Breast lump; Translations: [Unspecified lump in unspecified breast] 03-09-2023 Episodic Nutritional deficiencies (20 sources) Cobalamin deficiency; Translations: [Deficiency of other specified B group vitamins] Episodic Other aftercare (8 sources) Surgical follow-up 08-11-2022 Episodic Other and unspecified benign neoplasm (12 sources) Fibroadenoma of breast; Translations: [Benign neoplasm of left breast] 04-06-2023 Episodic Other circulatory disease (1 source) H/O: hypertension; Translations: [History of hypertension] Episodic Other circulatory disease (1 source) H/O: heart disorder; Translations: [Personal history of coronary atherosclerosis] Episodic Other connective tissue disease (1 source) H/O: rheumatoid arthritis; Translations: [Personal history of rheumatoid arthritis] Episodic Other female genital disorders (8 sources) Colovaginal fistula; 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] Onset: 3 09-19-2023 Chronic Other female genital disorders (4 sources) 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; 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] Onset: 3 Chronic Other fractures (1 source) Closed fracture of sixth cervical vertebra; Translations: [Unspecified displaced fracture of sixth cervical vertebra, initial encounter for closed fracture] Episodic Other fractures (8 sources) Fracture of cervical spine 08-11-2022 Episodic Other gastrointestinal disorders (1 source) Personal history of other diseases of the digestive system; Translations: [History of gastroesophageal reflux (GERD)] Episodic Other gastrointestinal disorders (1 source) H/O: abdominal hernia; Translations: [History of hiatal hernia] Episodic Other gastrointestinal disorders (5 sources) Diarrhea; Translations: [Diarrhea, unspecified] Onset: 3 10-11-2023 Episodic Other gastrointestinal disorders (5 sources) Splenomegaly; Translations: [Splenomegaly, not elsewhere classified] Onset: 3 10-11-2023 Episodic Other injuries and conditions due to external causes (1 source) Injury of neck; Translations: [Unspecified injury of neck, initial encounter] Episodic Other liver diseases (5 sources) Steatosis of liver; Translations: [Fatty (change of) liver, not elsewhere classified] Onset: 3 10-11-2023 Chronic Other lower respiratory disease (1 source) History of chronic obstructive airway disease; Translations: [History of chronic obstructive lung disease] Episodic Other lower respiratory disease (2 sources) Disorder of respiratory system; Translations: [Respiratory disorder, unspecified] 02-19-2023 Episodic Other lower respiratory disease (16 sources) Multiple nodules of lung; Translations: [Other nonspecific abnormal finding of lung field] 02-19-2023 Episodic Other lower respiratory disease (20 sources) Other nonspecific abnormal finding of lung field; Translations: [Other nonspecific abnormal finding of lung field] 02-25-2023 Episodic Other lower respiratory disease (2 sources) Respiratory disorder, unspecified; Translations: [Unspecified disease of respiratory system] 02-25-2023 Episodic Other nervous system disorders (1 source) Spinal cord disease; Translations: [Other specified diseases of spinal cord] Chronic Other nervous system disorders (20 sources) Metabolic encephalopathy; Translations: [Metabolic encephalopathy] 12-01-2021 Chronic Other nervous system disorders (8 sources) Metabolic encephalopathy; Translations: [Metabolic encephalopathy] 02-18-2023 Chronic Other nutritional; endocrine; and metabolic disorders (1 source) H/O: diabetes mellitus; Translations: [History of diabetes mellitus] Episodic Other skin disorders (14 sources) Mass of neck; Translations: [Localized swelling, mass and lump, neck] 03-09-2023 Episodic Other skin disorders (15 sources) Localized swelling, mass and lump, neck; Translations: [Swelling, mass, or lump in head and neck] 03-09-2023 Episodic Zarina-; endo-; and myocarditis; cardiomyopathy (except that caused by tuberculosis or sexually transmitted disease) (15 sources) Cardiomyopathy; Translations: [Cardiomyopathy, unspecified] Onset: 3 02-19-2023 Chronic Peritonitis and intestinal abscess (3 sources) Abscess of intestine; Translations: [Abscess of intestine] 09-15-2023 Episodic Phlebitis; thrombophlebitis and thromboembolism (2 sources) Deep venous thrombosis; Translations: [Acute embolism and thrombosis of unspecified deep veins of unspecified lower extremity] Onset: 2 Episodic Pneumonia (except that caused by tuberculosis or sexually transmitted disease) (20 sources) Pneumonia; Translations: [Pneumonia, unspecified organism] 02-18-2023 Episodic Residual codes; unclassified (1 source) History of radiation therapy; Translations: [History of radiation therapy] Episodic Residual codes; unclassified (15 sources) Chronic back pain 02-21-2014 Episodic Residual codes; unclassified (2 sources) Edema of lower extremity; Translations: [Localized edema] 02-18-2023 Episodic Residual codes; unclassified (2 sources) Localized edema; Translations: [Edema] 02-25-2023 Episodic Respiratory failure; insufficiency; arrest (adult) (20 sources) Chronic hypoxemic respiratory failure; Translations: [Chronic respiratory failure with hypoxia] Onset: 2 Chronic Respiratory failure; insufficiency; arrest (adult) (20 sources) Acute hypoxemic and hypercapnic respiratory failure; Translations: [Acute respiratory failure with hypoxia] 12-09-2021 Episodic Spondylosis; intervertebral disc disorders; other back problems (1 source) Spinal stenosis; Translations: [Spinal stenosis, site unspecified] Episodic Thyroid disorders (17 sources) Goiter; Translations: [Nontoxic goiter, unspecified] Onset: 3 09-16-2021 Chronic Unclassified (20 sources) [facility] Onset: 3 10-10-2023 Unclassified (20 sources) [facility] Nutrition Onset: 3 10-10-2023 Urinary tract infections (2 sources) Urinary tract infectious disease; Translations: [Urinary tract infection, site not specified] Onset: 2 Episodic Viral infection (20 sources) Disease caused by 2019-nCoV; Translations: [COVID-19] 12-09-2021 Episodic Past or Other Problems Problem Classification Problem Date Documented Da te Episodic/Chronic Cancer of breast (5 sources) History of malignant neoplasm of breast; Translations: [Personal history of malignant neoplasm of breast] Onset: 04-29-2016 10-11-2023 Episodic Other fractures (2 sources) Unspecified displaced fracture of sixth cervical vertebra, subsequent encounter for fracture with routine healing; Translations: [Unspecified displaced fracture of sixth cervical vertebra, subsequent encounter for fracture with ro] Onset: 10-26-2022 Episodic Other fractures (4 sources) Closed fracture of cervical spine; Translations: [Fracture of neck, unspecified, initial encounter] Onset: 10-19-2022 10-11-2023 Episodic Unclassified (1 source) Acute deep venous thrombosis of right calf; Translations: [Acute embolism and thrombosis of right calf muscular vein] Results Test Name Value Interpretation Reference Range Facility Ferritinon 09-06-2025 Ferritin [Mass/Vol] 52 ng/mL Normal 22-378 [facility] Comment on above: Order Comment: 310.2 Performed By: #### L 503.6030, L503.6550, L503.0106 #### [facility] [address] [place], [address] Iron+Iron Binding Capacityon 09-06-2025 TIBC 182 ug/dL Low 250-450 [facility] Comment on above: Order Comment: 310.2 Performed By: #### L 503.6030, L503.6550, L503.0106 #### [facility] [address] [place], [address] Vitamin B12on 09-06-2025 Cobalamin (Vitamin B12) [Mass/Vol] 195 pg/mL Normal 180-914 [facility] Comment on above: Order Comment: 310.2 Performed By: #### L 503.6030, L503.6550, L503.0106 #### [facility] [address] [place], [address] CBC-Complete Blood Cnt No Di ffon 09-04-2025 Platelets (Bld) [#/Vol] 91 10*3/uL Low 150-450 [facility] Comment on above: Order Comment: 310.2 Performed By: #### L 100.0500, L500.4050, [id number] #### [facility] [address] [place], [address] Comprehensive Metabolic Prof ilon 09-04-2025 Albumin [Mass/Vol] 3.4 g/dL Normal 3.4-4.8 [facility] Comment on above: Order Comment: 310.2 Performed By: #### L 100.0500, L500.4050, [id number] #### [facility] [address] [place], [address] Albumin/Globulin [Mass ratio] 1.2 {ratio} Normal 0.9-2.4 [facility] Comment on above: Order Comment: 310.2 Performed By: #### L 100.0500, L500.4050, [id number] #### [facility] [address] [place], [address] ALK PHOS 61 U/L Normal 35-104 [facility] Comment on above: Order Comment: 310.2 Performed By: #### L 100.0500, L500.4050, [id number] #### [facility] [address] [place], [address] ALT [Catalytic activity/Vol] U/L Normal <=34 [facility] Comment on above: Order Comment: 310.2 Performed By: #### L 100.0500, L500.4050, [id number] #### [facility] [address] [place], [address] AST [Catalytic activity/Vol] 14 U/L Normal <=31 [facility] Comment on above: Order Comment: 310.2 Performed By: #### L 100.0500, L500.4050, [id number] #### [facility] [address] [place], [address] Bilirubin [Mass/Vol] 0.22 mg/dL Normal 0.00-1.30 [facility] Comment on above: Order Comment: 310.2 Performed By: #### L 100.0500, L500.4050, [id number] #### [facility] [address] [place], [address] BUN/CRE 29.8 RATIO High 10-20 [facility] Comment on above: Order Comment: 310.2 Performed By: #### L 100.0500, L500.4050, [id number] #### [facility] [address] [place], [address] Calcium [Mass/Vol] 8.4 mg/dL Normal 7.6-11.0 [facility] Comment on above: Order Comment: 310.2 Performed By: #### L 100.0500, L500.4050, [id number] #### [facility] [address] [place], [address] Chloride [Moles/Vol] 104 mmol/L Normal 98-108 [facility] Comment on above: Order Comment: 310.2 Performed By: #### L 100.0500, L500.4050, [id number] #### [facility] [address] [place], [address] CO2 [Moles/Vol] 35.7 mmol/L High 21.0-32.0 [facility] Comment on above: Order Comment: 310.2 Performed By: #### L 100.0500, L500.4050, [id number] #### [facility] [address] [place], [address] Creatinine [Mass/Vol] 0.53 mg/dL Low 0.70-1.20 [facility] Comment on above: Order Comment: 310.2 Performed By: #### L 100.0500, L500.4050, [id number] #### [facility] [address] [place], [address] GAP 7 Normal 5-15 [facility] Comment on above: Order Comment: 310.2 Performed By: #### L 100.0500, L500.4050, [id number] #### [facility] [address] [place], [address] GFR/1.73 sq M.predicted among non-blacks MDRD (S/P/Bld) [Vol rate/Area] 96 mL/min/{1.73_m2} Normal >60 [facility] Comment on above: Order Comment: 310.2 Result Comment: mL/m in/1.73m2 CKD-EPI Creatinine Equation (2020) Performed By: #### L 100.0500, L500.4050, [id number] #### [facility] [address] [place], [address] Globulin (S) [Mass/Vol] 2.7 g/dL Normal 2.2-4.2 [facility] Comment on above: Order Comment: 310.2 Performed By: #### L 100.0500, L500.4050, [id number] #### [facility] [address] [place], [address] Glucose [Mass/Vol] 118 mg/dL High 70-99 [facility] Comment on above: Order Comment: 310.2 Performed By: #### L 100.0500, L500.4050, [id number] #### [facility] [address] [place], [address] Potassium [Moles/Vol] 3.8 mmol/L Normal 3.3-5.1 [facility] Comment on above: Order Comment: 310.2 Performed By: #### L 100.0500, L500.4050, [id number] #### [facility] [address] [place], [address] Sodium [Moles/Vol] 146 mmol/L High 133-145 [facility] Comment on above: Order Comment: 310.2 Performed By: #### L 100.0500, L500.4050, [id number] #### [facility] [address] [place], [address] T PROT 6.1 g/dL Normal 5.9-8.4 [facility] Comment on above: Order Comment: 310.2 Performed By: #### L 100.0500, L500.4050, [id number] #### [facility] [address] [place], [address] Urea nitrogen [Mass/Vol] 16 mg/dL Normal 4-19 [facility] Comment on above: Order Comment: 310.2 Performed By: #### L 100.0500, L500.4050, [id number] #### [facility] [address] [place], [address] Hemoglobin A1con 09-04-2025 HbA1c (Bld) [Mass fraction] % Normal <=5.6 [facility] Comment on above: Order Comment: 310.2 Result Comment: Norm al < 5.7 % Prediabetic 5.7 - 6.4 % Diabetic >or= 6.5 % Please note range changes. Performed By: #### L 100.0500, L500.4050, [id number] #### [facility] [address] [place], [address] CBC-Complete Blood Cnt No Di ffon 09-03-2025 HCT Normal 37-47 [facility] Comment on above: Order Comment: 310.2 Result Comment: KELLY JAIN @610. TRY 09/04/25 Performed By: #### L 500.4050, L100.0500 #### [facility] [address] [place], [address] HGB Normal 12.0-15.0 [facility] Comment on above: Order Comment: 310.2 Result Comment: KELLY JAIN @610. TRY 09/04/25 Performed By: #### L 500.4050, L100.0500 #### [facility] [address] [place], [address] MCH Normal 27.0-32.0 [facility] Comment on above: Order Comment: 310.2 Result Comment: KELLY JAIN @610. TRY 09/04/25 Performed By: #### L 500.4050, L100.0500 #### [facility] [address] [place], [address] MCHC Normal 32-36 [facility] Comment on above: Order Comment: 310.2 Result Comment: KELLY JAIN @610. TRY 09/04/25 Performed By: #### L 500.4050, L100.0500 #### [facility] [address] [place], [address] MCV Normal 81-99 [facility] Comment on above: Order Comment: 310.2 Result Comment: UTO TOLD SUSY @610. TRY 09/04/25 Performed By: #### L 500.4050, L100.0500 #### [facility] [address] [place], [address] PLT Normal 150-450 [facility] Comment on above: Order Comment: 310.2 Result Comment: UTDestini TOLD SUSY @610. TRY 09/04/25 Performed By: #### L 500.4050, L100.0500 #### [facility] [address] [place], [address] RBC Normal 4.2-5.4 [facility] Comment on above: Order Comment: 310.2 Result Comment: KELLY TOLD SUSY @610. TRY 09/04/25 Performed By: #### L 500.4050, L100.0500 #### [facility] [address] [place], [address] RDW CV Normal 11.6-14.6 [facility] Comment on above: Order Comment: 310.2 Result Comment: KELLY TOLD SUSY @610. TRY 09/04/25 Performed By: #### L 500.4050, L100.0500 #### [facility] [address] [place], [address] RDW SD Normal 35.1-43.9 [facility] Comment on above: Order Comment: 310.2 Result Comment: UTO TOLD SUSY @610. TRY 09/04/25 Performed By: #### L 500.4050, L100.0500 #### [facility] [address] [place], [address] WBC Normal 4.4-11.0 [facility] Comment on above: Order Comment: 310.2 Result Comment: KELLY JAIN @610. TRY 09/04/25 Performed By: #### L 500.4050, L100.0500 #### [facility] [address] [place], [address] Comprehensive Metabolic Prof ilon 09-03-2025 ALB Normal 3.4-4.8 [facility] Comment on above: Order Comment: 310.2 Result Comment: KELLY JAIN @610. TRY 09/04/25 Performed By: #### L 500.4050, L100.0500 #### [facility] [address] [place], [address] ALK PHOS Normal 35-104 [facility] Comment on above: Order Comment: 310.2 Result Comment: KELLY JAIN @610. TRY 09/04/25 Performed By: #### L 500.4050, L100.0500 #### [facility] [address] [place], [place], [address] ALT Normal <=34 [facility] Comment on above: Order Comment: 310.2 Result Comment: KELLY JAIN @610. TRY 09/04/25 Performed By: #### L 500.4050, L100.0500 #### [facility] [address] [place], [address] AST Normal <=31 [facility] Comment on above: Order Comment: 310.2 Result Comment: KELLY JAIN @610. TRY 09/04/25 Performed By: #### L 500.4050, L100.0500 #### [facility] [address] [place], [address] BUN Normal 4-19 [facility] Comment on above: Order Comment: 310.2 Result Comment: KELLY JAIN @610. TRY 09/04/25 Performed By: #### L 500.4050, L100.0500 #### [facility] [address] [place], [address] BUN/CRE Normal 10-20 [facility] Comment on above: Order Comment: 310.2 Result Comment: UTDestini TOLD SUSY @610. TRY 09/04/25 Performed By: #### L 500.4050, L100.0500 #### [facility] [address] [place], [address] Calcium Normal 7.6-11.0 [facility] Comment on above: Order Comment: 310.2 Result Comment: KELLY JAIN @610. TRY 09/04/25 Performed By: #### L 500.4050, L100.0500 #### [facility] [address] [place], [address] CL Normal 98-108 [facility] Comment on above: Order Comment: 310.2 Result Comment: KELLY JAIN @610. TRY 09/04/25 Performed By: #### L 500.4050, L100.0500 #### [facility] [address] [place], [address] CO2 Normal 21.0-32.0 [facility] Comment on above: Order Comment: 310.2 Result Comment: KELLY TOLD SUSY @610. TRY 09/04/25 Performed By: #### L 500.4050, L100.0500 #### [facility] [address] [place], [address] CREAT,SERUM Normal 0.70-1.20 [facility] Comment on above: Order Comment: 310.2 Result Comment: KELLY JAIN @610. TRY 09/04/25 Performed By: #### L 500.4050, L100.0500 #### [facility] [address] [place], [address] eGFR Normal >60 [facility] Comment on above: Order Comment: 310.2 Result Comment: KELLY JAIN @610. TRY 09/04/25 Performed By: #### L 500.4050, L100.0500 #### [facility] [address] [place], [address] GAP Normal 5-15 [facility] Comment on above: Order Comment: 310.2 Result Comment: KELLY TOLD SUSY @610. TRY 09/04/25 Performed By: #### L 500.4050, L100.0500 #### [facility] [address] [place], [address] GLU Normal 70-99 [facility] Comment on above: Order Comment: 310.2 Result Comment: KELLY JAIN @610. TRY 09/04/25 Performed By: #### L 500.4050, L100.0500 #### [facility] [address] [place], [address] Potassium Normal 3.3-5.1 [facility] Comment on above: Order Comment: 310.2 Result Comment: KELLY JAIN @610. TRY 09/04/25 Performed By: #### L 500.4050, L100.0500 #### [facility] [address] [place], [address] T BILI Normal 0.00-1.30 [facility] Comment on above: Order Comment: 310.2 Result Comment: KELLY JAIN @610. TRY 09/04/25 Performed By: #### L 500.4050, L100.0500 #### [facility] [address] [place], [address] T PROT Normal 5.9-8.4 [facility] Comment on above: Order Comment: 310.2 Result Comment: KELLY JAIN @610. TRY 09/04/25 Performed By: #### L 500.4050, L100.0500 #### [facility] [address] [place], [address] Comprehensive Metabolic Profil Normal 133-145 [facility] Comment on above: Order Comment: 310.2 Result Comment: KELLY JAIN @610. TRY 09/04/25 Performed By: #### L 500.4050, L100.0500 #### [facility] [address] [place], [address] CBC panel Auto (Bld)on 10-31 Erythrocyte distribution width (RBC) [Ratio] 14.4 % Normal 11.5-14.5 [facility] Comment on above: Performed By: #### 1 9123-9 #### BEVERLEY Poe ([id number]) [facility] ([facility]) [address] [place] [address] Hematocrit (Bld) [Volume fraction] 33.5 % Low 36.0-46.0 [facility] Comment on above: Performed By: #### 1 9123-9 #### BEVERLEY Poe ([id number]) [facility] ([facility]) [address] [place] [address]010 Hemoglobin (Bld) [Mass/Vol] 10.0 g/dL Low 12.0-16.0 [facility] Comment on above: Performed By: #### 1 9123-9 #### BEVERLEY Poe ([id number]) [facility] ([facility]) [address] [place] [address] 13627 MCH (RBC) [Entitic mass] 31.2 pg Normal 26.0-34.0 [facility] Comment on above: Performed By: #### 1 9123-9 #### BEVERLEY Poe ([id number]) [facility] ([facility]) [address] [place] [address] 67435 MCHC (RBC) [Mass/Vol] 29.9 g/dL Low 32.0-36.0 [facility] Comment on above: Performed By: #### 1 9123-9 #### BEVERLEY Poe ([id number]) [facility] ([facility]) [address] [place] [address] 39003 MCV (RBC) [Entitic vol] 104 fL High 80-100 [facility] Comment on above: Performed By: #### 1 9123-9 #### BEVERLEY Poe ([id number]) [facility] ([facility]) [address] [place] [address] 99661 Nucleated RBC/100 WBC (Bld) [Ratio] 0.0 /100 WBCs Normal 0.0-0.0 [facility] Comment on above: Performed By: #### 1 9123-9 #### BEVERLEY Poe ([id number]) [facility] ([facility]) [address] [place] [address]45[address] Platelets (Bld) [#/Vol] 112 x10*3/uL Low 150-450 [facility] Comment on above: Performed By: #### 1 9123-9 #### BEVERLEY Poe ([id number]) [facility] ([facility]) [address] [place] [address] 65516 RBC (Bld) [#/Vol] 3.21 x10*6/uL Low 4.00-5.20 [facility] Comment on above: Performed By: #### 1 9123-9 #### BEVERLEY Poe ([id number]) [facility] ([facility]) [address] [place] [address] 50363 WBC (Bld) [#/Vol] 4.6 x10*3/uL Normal 4.4-11.3 [facility] Comment on above: Performed By: #### 1 9123-9 #### BEVERLEY Poe ([id number]) [facility] ([facility]) [address] [place] [address] 05118 Comprehensive metabolic 2000 panelon 10-31-2023 Albumin BCP dye [Mass/Vol] 3.6 g/dL Normal 3.4-5.0 [facility] Comment on above: Performed By: #### 1 9123-9 #### BEVERLEY Poe ([id number]) [facility] ([facility]) [address] [place] [address] ALP [Catalytic activity/Vol] 58 U/L Normal 33-136 [facility] Comment on above: Performed By: #### 1 9123-9 #### BEVERLEY Poe ([id number]) [facility] ([facility]) [address] [place] [address] ALT With P-5'-P [Catalytic activity/Vol] 16 U/L Normal 7-45 [facility] Comment on above: Result Comment: Ирина ents treated with Sulfasalazine may generate falsely decreased results for ALT. Performed By: #### 1 9123-9 #### BEVERLEY Poe ([id number]) [facility] ([facility]) [address] [place] [address] Anion gap [Moles/Vol] 8 mmol/L Low 10-20 [facility] Comment on above: Performed By: #### 1 9123-9 #### BEVERLEY Poe ([id number]) [facility] ([facility]) [address] [place] [address] AST With P-5'-P [Catalytic activity/Vol] 14 U/L Normal 9-39 [facility] Comment on above: Performed By: #### 1 9123-9 #### BEVERLEY Poe ([id number]) [facility] ([facility]) [address] [place] [address] Bilirubin [Mass/Vol] 0.5 mg/dL Normal 0.0-1.2 [facility] Comment on above: Performed By: #### 1 9123-9 #### BEVERLEY Poe ([id number]) [facility] ([facility]) [address] [place] [address] Calcium [Mass/Vol] 9.3 mg/dL Normal 8.6-10.6 [facility] Comment on above: Performed By: #### 1 9123-9 #### BEVERLEY Poe ([id number]) [facility] ([facility]) [address] [place] [address] Chloride [Moles/Vol] 99 mmol/L Normal 98-107 [facility] Comment on above: Performed By: #### 1 9123-9 #### BEVERLEY DODD L ([id number]) [facility] ([facility]) [address] [place] [address] CO2 [Moles/Vol] 42 mmol/L Critically high 21-32 [facility] Comment on above: Performed By: #### 1 9123-9 #### BEVERLEY Poe ([id number]) [facility] ([facility]) [address] [place] [address] Creatinine [Mass/Vol] 0.48 mg/dL Low 0.50-1.05 [facility] Comment on above: Performed By: #### 1 9123-9 #### BEVERLEY Poe ([id number]) [facility] ([facility]) [address] [place] [address] GFR/1.73 sq M.predicted MDRD (S/P/Bld) [Vol rate/Area] mL/min/{1.73_m2} Normal >60 [facility] Comment on above: Result Comment: Calc ulations of estimated GFR are performed using the 2020 CKD-EPI Study Refit equation without the race variable for the IDMS-Traceable creatinine methods. https://jasn.asnjournals.org/content//ASN.82985 32788 Performed By: #### 1 9123-9 #### BEVERLEY Poe ([id number]) [facility] ([facility]) [address] [place] [address] Glucose [Mass/Vol] 82 mg/dL Normal 74-99 [facility] Comment on above: Performed By: #### 1 9123-9 #### BEVERLEY Poe ([id number]) [facility] ([facility]) [address] [place] [address] Potassium [Moles/Vol] 4.3 mmol/L Normal 3.5-5.3 [facility] Comment on above: Performed By: #### 1 9123-9 #### BEVERLEY DODD L ([id number]) [facility] ([facility]) [address] [place] [address]1997 Protein [Mass/Vol] 6.8 g/dL Normal 6.4-8.2 [facility] Comment on above: Performed By: #### 1 9123-9 #### BEVERLEY DODD L ([id number]) [facility] ([facility]) [address] [place] [address] 31711 Sodium [Moles/Vol] 145 mmol/L Normal 136-145 [facility] Comment on above: Performed By: #### 1 9123-9 #### BEVERLEY DODD L ([id number]) [facility] ([facility]) [address] [place] [address] 15701 Urea nitrogen [Mass/Vol] 21 mg/dL Normal 6-23 [facility] Comment on above: Performed By: #### 1 9123-9 #### BEVERLEY DODD L ([id number]) [facility] ([facility]) [address] [place] [address] 73958 Natriuretic peptide B [Mass/ Vol]on 10-31-2023 Interpretation and review of laboratory results Normal [facility] Natriuretic peptide B (Bld) [Mass/Vol] 98 pg/mL 0 - 99 pg/mL [facility] <100 pg/mL - Heart failure unlikely 100-299 pg/mL - Intermediate probability of acute heart failure exacerbation. Correlate with clinical context and patient history. >=300 pg/mL - Heart Failure likely. Correlate with clinical context and patient history. Biotin interference may cause falsely decreased results. Patients taking a Biotin dose of up to 5 mg/day should refrain from taking Biotin for 24 hours before sample collection. Providers may contact their local laboratory for further information. [facility] Natriuretic peptide B (Bld) [Mass/Vol] 98 pg/mL Normal 0-99 [facility] Comment on above: Order Comment: <100 pg/mL - Heart failure ahypnyaa587-725 pg/mL - Intermediate probability of acute heart failure exacerbation. Correlate with clinical context and patient history. >=300 pg/mL - Heart Failure likely. Correlate with clinical context and patient history.Biotin interference may cause falsely decreased results. Patients taking a Biotin dose of up to 5 mg/day should refrain from taking Biotin for 24 hours before sample collection. Providers may contact their local laboratory for further information. Performed By: #### 1 9123-9 #### BEVERLEY Poe ([id number]) [facility] ([facility]) [address] [place], [place] [address] Blood type and Indirect anti body screen panel (Bld)on 10-28-2023 ABO group Nom (Bld) O Normal [facility] Comment on above: Performed By: #### 1 9123-9 #### BEVERLEY Poe ([id number]) [facility] ([facility]) [address] [place] [address] 91439 Blood group antibody screen Ql Negative [facility] Comment on above: Performed By: #### 1 9123-9 #### BEVERLEY Poe ([id number]) [facility] ([facility]) [address] [place] [address] 20718 D Ag Ql (Bld) Positive [facility] Comment on above: Performed By: #### 1 9123-9 #### BEVERLEY Poe ([id number]) [facility] ([facility]) [address] [place] [address] 97243 CBC W Auto Differential pane l (Bld)on 10-28-2023 Basophils (Bld) [#/Vol] 0.01 x10*3/uL Normal 0.00-0.10 [facility] Comment on above: Performed By: #### 1 9123-9 #### BEVERLEY Poe ([id number]) [facility] ([facility]) [address] [place] [address] 27452 Basophils/100 WBC (Bld) 0.3 % Normal 0.0-2.0 [facility] Comment on above: Performed By: #### 1 9123-9 #### BEVERLEY Poe ([id number]) [facility] ([facility]) [address] [place] [address] 48840 Eosinophils (Bld) [#/Vol] 0.05 x10*3/uL Normal 0.00-0.40 [facility] Comment on above: Performed By: #### 1 9123-9 #### BEVERLEY Poe ([id number]) [facility] ([facility]) [address] [place] [address] 30537 Eosinophils/100 WBC (Bld) 1.3 % Normal 0.0-6.0 [facility] Comment on above: Performed By: #### 1 9123-9 #### BEVERLEY Poe ([id number]) [facility] ([facility]) [address] [place] [address] 34881 Erythrocyte distribution width (RBC) [Ratio] 14.5 % Normal 11.5-14.5 [facility] Comment on above: Performed By: #### 1 9123-9 #### BEVERLEY Poe ([id number]) [facility] ([facility]) [address] [place] [address] 63610 Hematocrit (Bld) [Volume fraction] 32.3 % Low 36.0-46.0 [facility] Comment on above: Performed By: #### 1 9123-9 #### BEVERLEY Poe ([id number]) [facility] ([facility]) [address] [place] [address] 73045 Hemoglobin (Bld) [Mass/Vol] 9.5 g/dL Low 12.0-16.0 [facility] Comment on above: Performed By: #### 1 9123-9 #### BEVERLEY Poe ([id number]) [facility] ([facility]) [address] [place] [address] 18642 Immature granulocytes (Bld) [#/Vol] 0.02 x10*3/uL Normal 0.00-0.50 [facility] Comment on above: Performed By: #### 1 9123-9 #### BEVERLEY Poe ([id number]) [facility] ([facility]) [address] [place] [address] 33543 Immature granulocytes/100 WBC (Bld) 0.5 % Normal 0.0-0.9 [facility] Comment on above: Result Comment: Sharda ture Granulocyte Count (IG) includes promyelocytes, myelocytes and metamyelocytes but does not include bands. Percent differential counts (%) should be interpreted in the context of the absolute cell counts (cells/UL). Performed By: #### 1 9123-9 #### BEVERLEY Poe ([id number]) [facility] ([facility]) [address] [place] [address] 17419 Lymphocytes (Bld) [#/Vol] 0.64 x10*3/uL Low 0.80-3.00 [facility] Comment on above: Performed By: #### 1 9123-9 #### BEVERLEY Poe ([id number]) [facility] ([facility]) [address] [place] [address] 63731 Lymphocytes/100 WBC (Bld) 16.0 % Normal 13.0-44.0 [facility] Comment on above: Performed By: #### 1 9123-9 #### BEVERLEY Poe ([id number]) [facility] ([facility]) [address] [place] [address] MCH (RBC) [Entitic mass] 30.2 pg Normal 26.0-34.0 [facility] Comment on above: Performed By: #### 1 9123-9 #### BEVERLEY Poe ([id number]) [facility] ([facility]) [address] [place] [address] 84715 MCHC (RBC) [Mass/Vol] 29.4 g/dL Low 32.0-36.0 [facility] Comment on above: Performed By: #### 1 9123-9 #### BEVERLEY Poe ([id number]) [facility] ([facility]) [address] [place] [address] 77347 MCV (RBC) [Entitic vol] 103 fL High 80-100 [facility] Comment on above: Performed By: #### 1 9123-9 #### BEVERLEY Poe ([id number]) [facility] ([facility]) [address] [place] [address] Monocytes (Bld) [#/Vol] 0.23 x10*3/uL Normal 0.05-0.80 [facility] Comment on above: Performed By: #### 1 9123-9 #### BEVERLEY Poe ([id number]) [facility] ([facility]) [address] [place] [address] Monocytes/100 WBC (Bld) 5.8 % Normal 2.0-10.0 [facility] Comment on above: Performed By: #### 1 9123-9 #### BEVERLEY Poe ([id number]) [facility] ([facility]) [address] [place] [address] 40834 Neutrophils (Bld) [#/Vol] 3.04 x10*3/uL Normal 1.60-5.50 [facility] Comment on above: Result Comment: Perc ent differential counts (%) should be interpreted in the context of the absolute cell counts (cells/uL). Performed By: #### 1 9123-9 #### BEVERLEY Poe ([id number]) [facility] ([facility]) [address] [place] [address] 75081 Neutrophils/100 WBC (Bld) 76.1 % Normal 40.0-80.0 [facility] Comment on above: Performed By: #### 1 9123-9 #### BEVERLEY Poe ([id number]) [facility] ([facility]) [address] [place] [address] 76191 Nucleated RBC/100 WBC (Bld) [Ratio] 0.0 /100 WBCs Normal 0.0-0.0 [facility] Comment on above: Performed By: #### 1 9123-9 #### BEVERLEY Poe ([id number]) [facility] ([facility]) [address] [place] [address] Platelets (Bld) [#/Vol] 107 x10*3/uL Low 150-450 [facility] Comment on above: Performed By: #### 1 9123-9 #### BEVERLEY Poe ([id number]) [facility] ([facility]) [address] [place] [address] RBC (Bld) [#/Vol] 3.15 x10*6/uL Low 4.00-5.20 [facility] Comment on above: Performed By: #### 1 9123-9 #### BEVERLEY Poe ([id number]) [facility] ([facility]) [address] [place] [address] 31892 WBC (Bld) [#/Vol] 4.0 x10*3/uL Low 4.4-11.3 [facility] Comment on above: Performed By: #### 1 9123-9 #### BEVERLEY Poe ([id number]) [facility] ([facility]) [address] [place] [address] 67652 Comprehensive metabolic 2000 panelon 10-28-2023 Albumin BCP dye [Mass/Vol] 3.6 g/dL Normal 3.4-5.0 [facility] Comment on above: Performed By: #### 1 9123-9 #### BEVERLEY Poe ([id number]) [facility] ([facility]) [address] [place] [address] 05482 ALP [Catalytic activity/Vol] 66 U/L Normal 33-136 [facility] Comment on above: Performed By: #### 1 9123-9 #### BEVERLEY Poe ([id number]) [facility] ([facility]) [address] [place] [address] 71827 ALT With P-5'-P [Catalytic activity/Vol] 18 U/L Normal 7-45 [facility] Comment on above: Result Comment: Ирина ents treated with Sulfasalazine may generate falsely decreased results for ALT. Performed By: #### 1 9123-9 #### BEVERLEY Poe ([id number]) [facility] ([facility]) [address] [place] [address] Anion gap [Moles/Vol] 9 mmol/L Low 10-20 [facility] Comment on above: Performed By: #### 1 9123-9 #### BEVERLEY Poe ([id number]) [facility] ([facility]) [address] [place] [address] AST With P-5'-P [Catalytic activity/Vol] 16 U/L Normal 9-39 [facility] Comment on above: Performed By: #### 1 9123-9 #### BEVERLEY Poe ([id number]) [facility] ([facility]) [address] [place] [address] 54909 Bilirubin [Mass/Vol] 0.6 mg/dL Normal 0.0-1.2 [facility] Comment on above: Performed By: #### 1 9123-9 #### BEVERLEY Poe ([id number]) [facility] ([facility]) [address] [place] [address] 36128 Calcium [Mass/Vol] 9.4 mg/dL Normal 8.6-10.6 [facility] Comment on above: Performed By: #### 1 9123-9 #### BEVERLEY Poe ([id number]) [facility] ([facility]) [address] [place] [address] Chloride [Moles/Vol] 100 mmol/L Normal 98-107 [facility] Comment on above: Performed By: #### 1 9123-9 #### BEVERLEY Poe ([id number]) [facility] ([facility]) [address] [place] [address] 08652 CO2 [Moles/Vol] 43 mmol/L Critically high 21-32 [facility] Comment on above: Performed By: #### 1 9123-9 #### BEVERLEY Poe ([id number]) [facility] ([facility]) [address] [place] [address] 70746 Creatinine [Mass/Vol] 0.62 mg/dL Normal 0.50-1.05 [facility] Comment on above: Performed By: #### 1 9123-9 #### BEVERLEY Poe ([id number]) [facility] ([facility]) [address] [place] [address] GFR/1.73 sq M.predicted MDRD (S/P/Bld) [Vol rate/Area] mL/min/{1.73_m2} Normal >60 [facility] Comment on above: Result Comment: Calc ulations of estimated GFR are performed using the 2020 CKD-EPI Study Refit equation without the race variable for the IDMS-Traceable creatinine methods. https://jasn.asnjournals.org/content/early//ASN.68167 15242 Performed By: #### 1 9123-9 #### BEVERLEY Poe ([id number]) [facility] ([facility]) [id number] [place] [address] Glucose [Mass/Vol] 101 mg/dL High 74-99 [facility] Comment on above: Performed By: #### 1 9123-9 #### BEVERLEY DODD L ([id number]) [facility] ([facility]) [id number] [place] [address] Potassium [Moles/Vol] 4.5 mmol/L Normal 3.5-5.3 [facility] Comment on above: Performed By: #### 1 9123-9 #### BEVERLEY VORAMOTZER L ([id number]) [facility] ([facility]) [id number] [place] [address] Protein [Mass/Vol] 7.0 g/dL Normal 6.4-8.2 [facility] Comment on above: Performed By: #### 1 9123-9 #### BEVERLEY DODD L ([id number]) [facility] ([facility]) [id number] [place] [address] Sodium [Moles/Vol] 147 mmol/L High 136-145 [facility] Comment on above: Performed By: #### 1 9123-9 #### BEVERLEY DODD L ([id number]) [facility] ([facility]) [id number] [place] [address] Urea nitrogen [Mass/Vol] 19 mg/dL Normal 6-23 [facility] Comment on above: Performed By: #### 1 9123-9 #### BEVERLEY Poe ([id number]) [facility] LAB ([facility]) [address] [place] [address] ECG 12-LEADon 10-28-2023 ECG 12-LEAD Ventricular Rate 76 Atrial Rate 76 P-R Interval 156 QRS Duration 132 Q-T Interval 428 QTC Calculation(Bazett) 481 P Stanley 57 R Stanley -49 T Stanley 51 QRS Count 12 Q Onset 210 P Onset 132 P Offset 187 T Offset 424 QTC Fredericia 462 Diagnosis Sinus rhythm with occasional Premature ventricular complexes Possible Left atrial enlargement Left axis deviation Left bundle branch block Abnormal ECG When compared with ECG of 19-SEP-2023 12:28, Left bundle branch block is now Present Confirmed by Harrison Piedra ([id number]) on 11/11/2023 6:42:46 PM Normal [facility] Prealbuminon 10-28-2023 Prealbumin [Mass/Vol] 18.4 mg/dL Normal 18.0-40.0 [facility] Comment on above: Performed By: #### 1 9123-9 #### BEVERLEY Poe ([id number]) [facility] ([facility]) [address] [place] [address] Staphylococcus aureus.methic illin resistant isolateon 10-28-2023 MRSA isol Org specific cx Ql (Nose) Test: Staphylococcus aureus/MRSA colonization, Culture Specimen Source: Anterior Nares Specimen Type: Swab Specimen Date: 10/28/2023 9:56 AM Result Date: 10/29/2023 1:28 PM Result Status: Final result Abnormal: No Resulting Lab: [facility] [address] [place], [place] [id number] CULTURE No Staphylococcus aureus isolated Normal [facility] Comment on above: Performed By: #### 1 9123-9 #### BEVERLEY Poe ([id number]) [facility] ([facility]) [address] [place] [address] Basophil percentageOrdered B y: Jonathan Dillard on 10-11-2023 Bilirubin [Mass/Vol] 0.30 mg/dL 0.20-1.00 [facility] Comment on above: For patients on eltr ombopag therapy, use of Dimension Strang TBIL is not recommended. Chloride [Moles/Vol] 101 mmol/L 98-107 [facility] Glucose [Mass/Vol] 102 mg/dL 74-106 [facility] Comment on above: Fasting Glucose resu lt from 100 to 125 mg/dL suggests IMPAIRED HOMEOSTASIS per A.D.A. criteria. Potassium [Moles/Vol] 3.7 mmol/L 3.5-5.1 [facility] Protein [Mass/Vol] 6.4 g/dL 6.4-8.2 [facility] Sodium [Moles/Vol] 144 mmol/L 136-145 [facility] WBC (Bld) [#/Vol] 3.3 10*3/uL 4.4-11.0 [facility] Blood erythrocytes count (nu mber/volume)Ordered By: Jonathan Dillard on 10-11-2023 RBC (Bld) [#/Vol] 2.77 10*6/uL 4.2-5.4 [facility] Blood hemoglobin measurement (mass/volume)Ordered By: Jonathan Dillard on 10-11-2023 Hemoglobin (Bld) [Mass/Vol] 8.2 g/dL 12.0-15.0 [facility] Blood platelet mean volumeOr dered By: Jonathan Dillard on 10-11-2023 Platelet mean volume (Bld) [Entitic vol] 8.8 fL 6.2-12.0 [facility] Determination of erythrocyte mean corpuscular volume (MCV)Ordered By: Jonathan Dillard on 10-11-2023 MCV (RBC) [Entitic vol] 105.8 fL 81-99 [facility] Hematocrit Auto (Bld) [Volum e fraction]Ordered By: Jonathan Dillard on 10-11-2023 Hematocrit (Bld) [Volume fraction] 29.3 % 37-47 [facility] Laboratory - Chemistry and C hemistry - challengeOrdered By: Jonathan Dillard on 10-11-2023 ALP [Catalytic activity/Vol] 51 U/L 45-117 [facility] ALT [Catalytic activity/Vol] 18 U/L 13-56 [facility] CO2 [Moles/Vol] 41.0 mmol/L 21.0-32.0 [facility] Globulin (S) [Mass/Vol] 4.1 g/dL 2.2-4.2 [facility] Urea nitrogen/Creatinine [Mass ratio] 36.1 mg/mg 10-20 [facility] Laboratory - Hematology and Cell countsOrdered By: Jonathan Dillard on 10-11-2023 Erythrocyte distribution width (RBC) [Entitic vol] 54.5 fL 35.1-43.9 [facility] Erythrocyte distribution width (RBC) [Ratio] 14.0 % 11.6-14.6 [facility] MCH (RBC) [Entitic mass] 29.6 pg 27.0-32.0 [facility] MCHC Auto (RBC) [Mass/Vol]Or dered By: Jonathan Dillard on 10-11-2023 MCHC (RBC) [Mass/Vol] 28.0 g/dL 32-36 [facility] No Panel InformationOrdered By: Jonathan Dillard on 10-11-2023 Estimated GFR (MDRD) Amer 156 mL/min >60 [facility] Comment on above: GFR Calc Estimated GFR (MDRD) Non-Af Amer 129 mL/min >60 [facility] Comment on above: Non- GFR Calc Platelets bldOrdered By: Mervat Dillard on 10-11-2023 Platelets (Bld) [#/Vol] 116 10*3/uL 150-450 [facility] Serum or plasma albumin celina urement (mass/volume)Ordered By: Jonathan Dillard on 10-11-2023 Albumin [Mass/Vol] 2.3 g/dL 3.2-5.0 [facility] Serum or plasma albumin/glob ulin mass ratioOrdered By: Jonathan Dillard on 10-11-2023 Albumin/Globulin [Mass ratio] 0.6 {ratio} 0.9-2.4 [facility] Serum or plasma calcium celina urement (mass/volume)Ordered By: Jonathan Dillard on 10-11-2023 Calcium [Mass/Vol] 7.8 mg/dL 8.5-10.1 [facility] Serum or plasma creatinine m easurement (mass/volume)Ordered By: Jonathan Dillard on 10-11-2023 Creatinine [Mass/Vol] 0.50 mg/dL 0.55-1.02 [facility] Comment on above: The validity of the calculated GFR & GFRAA in patients over 70 years has not been determined. Clinical correlation is essential. Serum or plasma urea nitroge n measurement (mass/volume)Ordered By: Jonathan Dillard on 10-11-2023 Urea nitrogen [Mass/Vol] 18 mg/dL 7-18 [facility] Thin prep Papanicolaou smear with manual screeningOrdered By: Jonathan Dillard on 10-11-2023 Thin prep Papanicolaou smear with manual screening 14 U/L 15- [facility] Thin prep Papanicolaou smear with manual screening 2 5-15 [facility] Laboratory - Chemistry and C hemistry - challengeOrdered By: Jonathan Dillard on 10-04-2023 Cobalamin (Vitamin B12) [Mass/Vol] 926 pg/mL 211-911 [facility] Basophil percentageOrdered B y: Jonathan Dillard on 10-03-2023 Bilirubin [Mass/Vol] 0.40 mg/dL 0.20-1.00 [facility] Comment on above: For patients on eltr ombopag therapy, use of Dimension Strang TBIL is not recommended. Chloride [Moles/Vol] 103 mmol/L 98-107 [facility] Cholesterol [Mass/Vol] 112 mg/dL <200 [facility] Comment on above: <200 mg/dL Desirable 200-240 mg/dL Borderline >240 mg/dL High Risk Glucose [Mass/Vol] 133 mg/dL 74-106 [facility] Comment on above: Fasting Glucose resu lt greater than or equal to 126 mg/dL suggests DIABETES MELLITUS per A.D.A. criteria. Potassium [Moles/Vol] 3.8 mmol/L 3.5-5.1 [facility] Protein [Mass/Vol] 6.2 g/dL 6.4-8.2 [facility] Sodium [Moles/Vol] 144 mmol/L 136-145 [facility] Triglyceride [Mass/Vol] 156 mg/dL <199 [facility] Comment on above: The drugs N-Acetylcy steine and Metamizole may falsely depress this assay.Serum Triglycerides Reference Interval Normal <150 mg/dL Borderline high 150 - 199 mg/dL High 200 - 499 mg/dL Very High > or = 500 mg/dL WBC (Bld) [#/Vol] 3.6 10*3/uL 4.4-11.0 [facility] Blood erythrocytes count (nu mber/volume)Ordered By: Jonathan Dillard on 10-03-2023 RBC (Bld) [#/Vol] 2.77 10*6/uL 4.2-5.4 [facility] Blood hemoglobin measurement (mass/volume)Ordered By: Jonathan Dillard on 10-03-2023 Hemoglobin (Bld) [Mass/Vol] 8.2 g/dL 12.0-15.0 [facility] Blood platelet mean volumeOr dered By: Jonathan Dillard on 10-03-2023 Platelet mean volume (Bld) [Entitic vol] 9.3 fL 6.2-12.0 [facility] Determination of erythrocyte mean corpuscular volume (MCV)Ordered By: Jonathan Dillard on 10-03-2023 MCV (RBC) [Entitic vol] 104.0 fL 81-99 [facility] Hematocrit Auto (Bld) [Volum e fraction]Ordered By: Jonathan Dillard on 10-03-2023 Hematocrit (Bld) [Volume fraction] 28.8 % 37-47 [facility] Laboratory - Chemistry and C hemistry - challengeOrdered By: Jonathan Dillard on 10-03-2023 ALP [Catalytic activity/Vol] 42 U/L 45-117 [facility] ALT [Catalytic activity/Vol] 16 U/L 13-56 [facility] CO2 [Moles/Vol] 40.0 mmol/L 21.0-32.0 [facility] Globulin (S) [Mass/Vol] 3.9 g/dL 2.2-4.2 [facility] Urea nitrogen/Creatinine [Mass ratio] 35.6 mg/mg 10-20 [facility] Laboratory - Hematology and Cell countsOrdered By: Jonathan Dillard on 10-03-2023 Erythrocyte distribution width (RBC) [Entitic vol] 54.0 fL 35.1-43.9 [facility] Erythrocyte distribution width (RBC) [Ratio] 14.2 % 11.6-14.6 [facility] MCH (RBC) [Entitic mass] 29.6 pg 27.0-32.0 [facility] MCHC Auto (RBC) [Mass/Vol]Or dered By: Jonathan Dillard on 10-03-2023 MCHC (RBC) [Mass/Vol] 28.5 g/dL 32-36 [facility] No Panel InformationOrdered By: Jonathan Dillard on 10-03-2023 Estimated GFR (MDRD) Amer 153 mL/min >60 [facility] Comment on above: GFR Calc Estimated GFR (MDRD) Non-Af Amer 127 mL/min >60 [facility] Comment on above: Non- GFR Calc Platelets bldOrdered By: Mervat Dillard on 10-03-2023 Platelets (Bld) [#/Vol] 104 10*3/uL 150-450 [facility] Serum or plasma albumin celina urement (mass/volume)Ordered By: Jonathan Dillard on 10-03-2023 Albumin [Mass/Vol] 2.3 g/dL 3.2-5.0 [facility] Serum or plasma albumin/glob ulin mass ratioOrdered By: Jonathan Dillard on 10-03-2023 Albumin/Globulin [Mass ratio] 0.6 {ratio} 0.9-2.4 [facility] Serum or plasma calcium celina urement (mass/volume)Ordered By: Jonathan Dillard on 10-03-2023 Calcium [Mass/Vol] 8.4 mg/dL 8.5-10.1 [facility] Serum or plasma cholesterol in HDL measurement (mass/volume)Ordered By: Jonathan Dillard on 10-03-2023 Cholesterol in HDL [Mass/Vol] 41 mg/dL >40 [facility] Comment on above: The drugs N-Acetylcy steine and Metamizole may falsely depress this assay. Reference Range HDL <40 mg/dL Low HDL Cholesterol HDL >or= 60 mg/dL High HDL Cholesterol Serum or plasma cholesterol in VLDL measurement (mass/volume)Ordered By: Jonathan Dillard on 10-03-2023 Cholesterol in VLDL [Mass/Vol] 31 mg/dL 5-40 [facility] Serum or plasma creatinine m easurement (mass/volume)Ordered By: Jonathan Dillard on 10-03-2023 Creatinine [Mass/Vol] 0.51 mg/dL 0.55-1.02 [facility] Comment on above: The validity of the calculated GFR & GFRAA in patients over 70 years has not been determined. Clinical correlation is essential. Serum or plasma low density lipoprotein (LDL) cholesterol measurement (mass/volume)Ordered By: Jonathan Dillard on 10-03-2023 Cholesterol in LDL [Mass/Vol] 40 mg/dL 0-130 [facility] Serum or plasma urea nitroge n measurement (mass/volume)Ordered By: Jonathan Dillard on 10-03-2023 Urea nitrogen [Mass/Vol] 18 mg/dL 7-18 [facility] Thin prep Papanicolaou smear with manual screeningOrdered By: Jonathan Dillard on 10-03-2023 Thin prep Papanicolaou smear with manual screening 15 U/L 15-37 [facility] Thin prep Papanicolaou smear with manual screening 1 5-15 [facility] Whole blood hemoglobin A1c/t otal hemoglobin ratio (mass fraction)Ordered By: Jonathan Dillard on 10-03-2023 HbA1c (Bld) [Mass fraction] % 3.8-5.6 [facility] Comment on above: Normal < 5.7 % Predi abetic 5.7 - 6.4 % Diabetic >or= 6.5 % Please note range changes. CBC panel Auto (Bld)on 09-28 Erythrocyte distribution width (RBC) [Ratio] 14.0 % 11.5 - 14.5 % [facility] Hematocrit (Bld) [Volume fraction] 28.8 % Low 36.0 - 46.0 % [facility] Hemoglobin (Bld) [Mass/Vol] 8.4 g/dL Low 12.0 - 16.0 g/dL [facility] Interpretation and review of laboratory results Abnormal [facility] MCH (RBC) [Entitic mass] 30.1 pg 26.0 - 34.0 pg [facility] MCHC (RBC) [Mass/Vol] 29.2 g/dL Low 32.0 - 36.0 g/dL [facility] MCV (RBC) [Entitic vol] 103 fL High 80 - 100 fL [facility] Nucleated RBC/100 WBC (Bld) [Ratio] 0.0 % [facility] Platelets (Bld) [#/Vol] 113 10*3/uL Low [facility] RBC (Bld) [#/Vol] 2.79 10*6/uL [facility] WBC (Bld) [#/Vol] 3.5 10*3/uL [facility] Erythrocyte distribution width (RBC) [Ratio] 14.0 % Normal 11.5-14.5 [facility] Comment on above: Performed By: #### 1 9123-9 #### BEVERLEY Poe ([id number]) [facility] ([facility]) [address] [place] [address] Hematocrit (Bld) [Volume fraction] 28.8 % Low 36.0-46.0 [facility] Comment on above: Performed By: #### 1 9123-9 #### BEVERLEY Poe ([id number]) [facility] ([facility]) [id number] [place] [address] 29332 Hemoglobin (Bld) [Mass/Vol] 8.4 g/dL Low 12.0-16.0 [facility] Comment on above: Performed By: #### 1 9123-9 #### BEVERLEY Poe ([id number]) [facility] ([facility]) [id number] [place] [address] 89265 MCH (RBC) [Entitic mass] 30.1 pg Normal 26.0-34.0 [facility] Comment on above: Performed By: #### 1 9123-9 #### BEVERLEY Poe ([id number]) [facility] ([facility]) [id number] [place] [address] 66249 MCHC (RBC) [Mass/Vol] 29.2 g/dL Low 32.0-36.0 [facility] Comment on above: Performed By: #### 1 9123-9 #### BEVERLEY Poe ([id number]) [facility] ([facility]) [address] [place] [address] 06226 MCV (RBC) [Entitic vol] 103 fL High 80-100 [facility] Comment on above: Performed By: #### 1 9123-9 #### BEVERLEY Poe ([id number]) [facility] ([facility]) [id number] [place] [address] 59930 Nucleated RBC/100 WBC (Bld) [Ratio] 0.0 /100 WBCs Normal 0.0-0.0 [facility] Comment on above: Performed By: #### 1 9123-9 #### BEVERLEY Poe ([id number]) [facility] ([facility]) [address] [place] [address] 06374 Platelets (Bld) [#/Vol] 113 x10*3/uL Low 150-450 [facility] Comment on above: Performed By: #### 1 9123-9 #### BEVERLEY Poe ([id number]) [facility] ([facility]) [address] [place] [address] 34962 RBC (Bld) [#/Vol] 2.79 x10*6/uL Low 4.00-5.20 [facility] Comment on above: Performed By: #### 1 9123-9 #### BEVERLEY Poe ([id number]) [facility] ([facility]) [id number] [place] [address] 68852 WBC (Bld) [#/Vol] 3.5 x10*3/uL Low 4.4-11.3 [facility] Comment on above: Performed By: #### 1 9123-9 #### BEVERLEY Poe ([id number]) [facility] ([facility]) [address] [place] [address] 39551 [facility] Heart and Coronary arter ies WO and W contrast Jack 09-28-2023 MMODAL MMODAL [facility] Work Phone: CTA Heart and Coronary arter ies WO and W contrast IVOrdered By: Yair Pham on 09-28-2023 [facility] Work Phone: Magnesiumon 09-28-2023 Magnesium [Mass/Vol] 2.13 mg/dL Normal 1.60-2.40 [facility] Comment on above: Performed By: #### 1 9123-9 #### BEVERLEY Poe ([id number]) [facility] ([facility]) [address] [place] [address] 41797 Renal function 2000 panelon 09-28-2023 Albumin BCP dye [Mass/Vol] 2.9 g/dL Low 3.4-5.0 [facility] Comment on above: Performed By: #### 1 9123-9 #### BEVERLEY Peo ([id number]) [facility] ([facility]) [address] [place] [address] 98342 Anion gap [Moles/Vol] 11 mmol/L Normal 10-20 [facility] Comment on above: Performed By: #### 1 9123-9 #### BEVERLEY Poe ([id number]) [facility] ([facility]) [address] [place] [address] 40104 Calcium [Mass/Vol] 8.9 mg/dL Normal 8.6-10.6 [facility] Comment on above: Performed By: #### 1 9123-9 #### BEVERLEY Poe ([id number]) [facility] ([facility]) [address] [place] [address] 14895 Chloride [Moles/Vol] 100 mmol/L Normal 98-107 [facility] Comment on above: Performed By: #### 1 9123-9 #### BEVERLEY Poe ([id number]) [facility] ([facility]) [address] [place] [address] 20861 CO2 [Moles/Vol] 40 mmol/L Critically high 21-32 [facility] Comment on above: Performed By: #### 1 9123-9 #### BEVERLEY Poe ([id number]) [facility] ([facility]) [address] [place] [address] Creatinine [Mass/Vol] 0.44 mg/dL Low 0.50-1.05 [facility] Comment on above: Performed By: #### 1 9123-9 #### BEVERLEY Poe ([id number]) [facility] ([facility]) [address] [place] [address] GFR/1.73 sq M.predicted MDRD (S/P/Bld) [Vol rate/Area] mL/min/{1.73_m2} Normal >60 [facility] Comment on above: Result Comment: Calc ulations of estimated GFR are performed using the 2020 CKD-EPI Study Refit equation without the race variable for the IDMS-Traceable creatinine methods. https://jasn.asnjournals.org/content/early//ASN.75799 04652 Performed By: #### 1 9123-9 #### BEVERLEY Poe ([id number]) [facility] ([facility]) [address] [place] [address] Glucose [Mass/Vol] 143 mg/dL High 74-99 [facility] Comment on above: Performed By: #### 1 9123-9 #### BEVERLEY Poe ([id number]) [facility] ([facility]) [address] [place] [address] Phosphate [Mass/Vol] 2.8 mg/dL Normal 2.5-4.9 [facility] Comment on above: Result Comment: The performance characteristics of phosphorus testing in heparinized plasma have been validated by the individual laboratory site where testing is performed. Testing on heparinized plasma is not approved by the FDA; however, such approval is not necessary. Performed By: #### 1 9123-9 #### BEVERLEY Poe ([id number]) [facility] ([facility]) [address] [place] [address] Potassium [Moles/Vol] 3.8 mmol/L Normal 3.5-5.3 [facility] Comment on above: Performed By: #### 1 9123-9 #### BEVERLEY Poe ([id number]) [facility] ([facility]) [address] [place] [address] Sodium [Moles/Vol] 147 mmol/L High 136-145 [facility] Comment on above: Performed By: #### 1 9123-9 #### BEVERLEY Poe ([id number]) [facility] ([facility]) [address] [place] [address] 94525 Urea nitrogen [Mass/Vol] 11 mg/dL Normal 6-23 [facility] Comment on above: Performed By: #### 1 9123-9 #### BEVERLEY Poe ([id number]) [facility] ([facility]) [address] [place] [address] 57715 SARS coronavirus 2 RNAon SARS-CoV-2 (COVID-19) RNA ISA+probe Ql (Resp) Not detected Normal Not Detected [facility] Comment on above: Order Comment: This assay has received FDA Emergency Use Authorization (EUA) and is only authorized for the duration of time that circumstances exist to justify the authorization of the emergency use of in vitro diagnostic tests for the detection of SARS-CoV-2 virus and/or diagnosis of COVID-19 infection under section 564(b)(1) of the Act, 21 U.S.C. 360bbb-3(b)(1). This assay is an in vitro diagnostic nucleic acid amplification test for the qualitative detection of SARS-CoV-2 from nasopharyngeal specimens and has been validated for use at [facility]. Negative results do not preclude COVID-19 infections and should not be used as the sole basis for diagnosis, treatment, or other management decisions. Performed By: #### 1 9123-9 #### BEVERLEY Poe ([id number]) [facility] ([facility]) [address] [place] [address] 53093 SARS-CoV-2 (COVID-19) RNA NA A+probe Ql (Resp)on 09-28-2023 Interpretation and review of laboratory results Normal [facility] SARS-CoV-2 RT PCRon 09-28-20 SARS-CoV-2 (COVID-19) RNA ISA+probe Ql (Resp) Not detected Not Detected [facility] CBC panel Auto (Bld)on 09-27 Erythrocyte distribution width (RBC) [Ratio] 14.3 % 11.5 - 14.5 % [facility] Hematocrit (Bld) [Volume fraction] 28.0 % Low 36.0 - 46.0 % [facility] Hemoglobin (Bld) [Mass/Vol] 8.0 g/dL Low 12.0 - 16.0 g/dL [facility] Interpretation and review of laboratory results Abnormal [facility] MCH (RBC) [Entitic mass] 29.7 pg 26.0 - 34.0 pg [facility] MCHC (RBC) [Mass/Vol] 28.6 g/dL Low 32.0 - 36.0 g/dL [facility] MCV (RBC) [Entitic vol] 104 fL High 80 - 100 fL [facility] Nucleated RBC/100 WBC (Bld) [Ratio] 0.0 % [facility] Platelets (Bld) [#/Vol] 115 10*3/uL [facility] RBC (Bld) [#/Vol] 2.69 10*6/uL [facility] WBC (Bld) [#/Vol] 3.2 10*3/uL [facility] Erythrocyte distribution width (RBC) [Ratio] 14.3 % Normal 11.5-14.5 [facility] Comment on above: Performed By: #### 2 341-6 #### BEVERLEY Poe ([id number]) [facility] ([facility]) [address] [place] [address] Hematocrit (Bld) [Volume fraction] 28.0 % Low 36.0-46.0 [facility] Comment on above: Performed By: #### 2 341-6 #### BEVERLEY Poe ([id number]) [facility] ([facility]) [address] [place] [address] Hemoglobin (Bld) [Mass/Vol] 8.0 g/dL Low 12.0-16.0 [facility] Comment on above: Performed By: #### 2 341-6 #### BEVERLEY Poe ([id number]) [facility] ([facility]) [address] [place] [address] 69515 MCH (RBC) [Entitic mass] 29.7 pg Normal 26.0-34.0 [facility] Comment on above: Performed By: #### 2 341-6 #### BEVERLEY Poe ([id number]) [facility] ([facility]) [id number] [place] [address] 87537 MCHC (RBC) [Mass/Vol] 28.6 g/dL Low 32.0-36.0 [facility] Comment on above: Performed By: #### 2 341-6 #### BEVERLEY Poe ([id number]) [facility] ([facility]) [address] [place] [address] 88505 MCV (RBC) [Entitic vol] 104 fL High 80-100 [facility] Comment on above: Performed By: #### 2 341-6 #### BEVERLEY Poe ([id number]) [facility] ([facility]) [address] [place] [address] 99753 Nucleated RBC/100 WBC (Bld) [Ratio] 0.0 /100 WBCs Normal 0.0-0.0 [facility] Comment on above: Performed By: #### 2 341-6 #### BEVERLEY Poe ([id number]) [facility] ([facility]) [address] [place] [address] 92874 Platelets (Bld) [#/Vol] 115 x10*3/uL Low 150-450 [facility] Comment on above: Performed By: #### 2 341-6 #### BEVERLEY Poe ([id number]) [facility] ([facility]) [id number] [place] [address] 24791 RBC (Bld) [#/Vol] 2.69 x10*6/uL Low 4.00-5.20 [facility] Comment on above: Performed By: #### 2 341-6 #### BEVERLEY Poe ([id number]) [facility] ([facility]) [address] [place] [address] WBC (Bld) [#/Vol] 3.2 x10*3/uL Low 4.4-11.3 [facility] Comment on above: Performed By: #### 2 341-6 #### BEVERLEY Poe ([id number]) [facility] ([facility]) [address] [place] [address] 59632 Cobalaminson 09-27-2023 Cobalamin (Vitamin B12) [Mass/Vol] 411 pg/mL Normal 211-911 [facility] Comment on above: Performed By: #### 1 9123-9 #### BEVERLEY Poe ([id number]) [facility] ([facility]) [address] [place] [address] Electrocardiogram, 12-lead P RN ACS symptomsOrdered By: Simon Piedra on 09-27-2023 Atrial Rate 104 BPM [facility] Work Phone: [phone] P Stanley 67 degrees [facility] Work Phone: [phone] P Offset 193 ms [facility] Work Phone: [phone] P Onset 137 ms [facility] Work Phone: [phone] PA Interval 150 ms [facility] Work Phone: [phone] Q Onset 212 ms [facility] Work Phone: [phone] QRS Count 17 beats [facility] Work Phone: [phone] QRS Duration 136 ms [facility] Work Phone: [phone] QT Interval 352 ms [facility] Work Phone: [phone] QTC Calculation(Bazett) 462 ms [facility] Work Phone: [phone] QTC Fredericia 422 ms [facility] Work Phone: [phone] R Stanley -54 degrees [facility] Work Phone: [phone] T Stanley 70 degrees [facility] Work Phone: T Offset 388 ms [facility] Work Phone: Ventricular Rate 104 BPM [facility] Work Phone: [phone] [facility] Work Phone: Electrocardiogram, 12-lead P RN ACS symptomson 09-27-2023 MUSE [facility] Work Phone: Folateon 09-27-2023 Folate [Mass/Vol] 16.2 ng/mL Normal >5.0 [facility] Comment on above: Order Comment: Low < 3.4Borderline 3.4-5.0Normal >5.0Patients receiving more than 5 mg/day of biotin may have interference in test results. A sample should be taken no sooner than eight hours after previous dose. Contact the testing laboratory for additional information. Performed By: #### 1 9123-9 #### BEVERLEY Poe ([id number]) [facility] ([facility]) [address] [place], [place] [id number] Magnesiumon 09-27-2023 Magnesium [Mass/Vol] 2.13 mg/dL 1.60 - 2.40 mg/dL [facility] Magnesium [Mass/Vol] 2.13 mg/dL Normal 1.60-2.40 [facility] Comment on above: Performed By: #### 2 341-6 #### BEVERLEY Poe ([id number]) [facility] ([facility]) [address] [place] [address] 80465 Magnesium [Mass/Vol]on 09-27 Interpretation and review of laboratory results Normal [facility] No Panel Informationon 09-27 [facility] Renal function 2000 panelon 09-27-2023 Albumin BCP dye [Mass/Vol] 2.8 g/dL Low 3.4 - 5.0 g/dL [facility] Anion gap [Moles/Vol] 7 mmol/L Low 10 - 2 0 mmol/L [facility] Calcium [Mass/Vol] 8.7 mg/dL 8.6 - 10. 6 mg/dL [facility] Chloride [Moles/Vol] 102 mmol/L 98 - 10 7 mmol/L [facility] CO2 [Moles/Vol] 42 mmol/L Critically high 21 - 32 mmol/L [facility] Creatinine [Mass/Vol] 0.41 mg/dL Low 0.50 - 1.05 mg/dL [facility] GFR/1.73 sq M.predicted MDRD (S/P/Bld) [Vol rate/Area] - PINF [facility] Glucose [Mass/Vol] 142 mg/dL High 74 - 99 mg/dL [facility] Interpretation and review of laboratory results Abnormal [facility] Phosphate [Mass/Vol] 3.2 mg/dL 2.5 - 4 .9 mg/dL [facility] Potassium [Moles/Vol] 3.9 mmol/L 3.5 - 5.3 mmol/L [facility] Sodium [Moles/Vol] 147 mmol/L High 136 - 145 mmol/L [facility] Urea nitrogen [Mass/Vol] 12 mg/dL 6 - 23 mg/dL [facility] Albumin BCP dye [Mass/Vol] 2.8 g/dL Low 3.4-5.0 [facility] Comment on above: Performed By: #### 2 341-6 #### BEVERLEY Poe ([id number]) [facility] ([facility]) [address] [place] [address] Anion gap [Moles/Vol] 7 mmol/L Low 10-20 [facility] Comment on above: Performed By: #### 2 341-6 #### BEVERLEY Poe ([id number]) [facility] ([facility]) [address] [place] [address] Calcium [Mass/Vol] 8.7 mg/dL Normal 8.6-10.6 [facility] Comment on above: Performed By: #### 2 341-6 #### BEVERLEY Poe ([id number]) [facility] ([facility]) [address] [place] [address] Chloride [Moles/Vol] 102 mmol/L Normal 98-107 [facility] Comment on above: Performed By: #### 2 341-6 #### BEVERLEY Poe ([id number]) [facility] ([facility]) [address] [place] [address] CO2 [Moles/Vol] 42 mmol/L Critically high 21-32 [facility] Comment on above: Performed By: #### 2 341-6 #### BEVERLEY Poe ([id number]) [facility] ([facility]) [address] [place] [address] Creatinine [Mass/Vol] 0.41 mg/dL Low 0.50-1.05 [facility] Comment on above: Performed By: #### 2 341-6 #### BEVERLEY Poe ([id number]) [facility] ([facility]) [address] [place] [address] 80770 GFR/1.73 sq M.predicted MDRD (S/P/Bld) [Vol rate/Area] mL/min/{1.73_m2} Normal >60 [facility] Comment on above: Result Comment: Calc ulations of estimated GFR are performed using the 2020 CKD-EPI Study Refit equation without the race variable for the IDMS-Traceable creatinine methods. https://jasn.asnjournals.org/content/early/ASN.32209 70127 Performed By: #### 2 341-6 #### BEVERLEY Poe ([id number]) [facility] ([facility]) [address] [place] [address] Glucose [Mass/Vol] 142 mg/dL High 74-99 [facility] Comment on above: Performed By: #### 2 341-6 #### BEVERLEY Poe ([id number]) [facility] ([facility]) [address] [place] [address] Phosphate [Mass/Vol] 3.2 mg/dL Normal 2.5-4.9 [facility] Comment on above: Result Comment: The performance characteristics of phosphorus testing in heparinized plasma have been validated by the individual laboratory site where testing is performed. Testing on heparinized plasma is not approved by the FDA; however, such approval is not necessary. Performed By: #### 2 341-6 #### BEVERLEY Poe ([id number]) [facility] ([facility]) [address] [place] [address] Potassium [Moles/Vol] 3.9 mmol/L Normal 3.5-5.3 [facility] Comment on above: Performed By: #### 2 341-6 #### BEVERLEY Poe ([id number]) [facility] ([facility]) [address] [place] [address] Sodium [Moles/Vol] 147 mmol/L High 136-145 [facility] Comment on above: Performed By: #### 2 341-6 #### BEVERLEY Poe ([id number]) [facility] ([facility]) [address] [place] [address] 407[address] Urea nitrogen [Mass/Vol] 12 mg/dL Normal 6-23 [facility] Comment on above: Performed By: #### 2 341-6 #### BEVERLEY Poe ([id number]) [facility] ([facility]) [address] [place] [address] SARS coronavirus 2 RNAon SARS-CoV-2 (COVID-19) RNA ISA+probe Ql (Resp) Not detected Normal Not Detected [facility] Comment on above: Order Comment: This assay has received FDA Emergency Use Authorization (EUA) and is only authorized for the duration of time that circumstances exist to justify the authorization of the emergency use of in vitro diagnostic tests for the detection of SARS-CoV-2 virus and/or diagnosis of COVID-19 infection under section 564(b)(1) of the Act, 21 U.S.C. 360bbb-3(b)(1). This assay is an in vitro diagnostic nucleic acid amplification test for the qualitative detection of SARS-CoV-2 from nasopharyngeal specimens and has been validated for use at [facility]. Negative results do not preclude COVID-19 infections and should not be used as the sole basis for diagnosis, treatment, or other management decisions. Performed By: #### 2 341-6 #### BEVERLEY Poe ([id number]) [facility] ([facility]) [address] [place] [address] SARS-CoV-2 (COVID-19) RNA NA A+probe Ql (Resp)on 09-27-2023 Interpretation and review of laboratory results Normal [facility] SARS-CoV-2 RT PCRon 09-27-20 SARS-CoV-2 (COVID-19) RNA ISA+probe Ql (Resp) Not detected Not Detected [facility] CBC panel Auto (Bld)on 09-26 Erythrocyte distribution width (RBC) [Ratio] 14.3 % 11.5 - 14.5 % [facility] Hematocrit (Bld) [Volume fraction] 26.6 % Low 36.0 - 46.0 % [facility] Hemoglobin (Bld) [Mass/Vol] 7.6 g/dL Low 12.0 - 16.0 g/dL [facility] Interpretation and review of laboratory results Abnormal [facility] MCH (RBC) [Entitic mass] 29.9 pg 26.0 - 34.0 pg [facility] MCHC (RBC) [Mass/Vol] 28.6 g/dL Low 32.0 - 36.0 g/dL [facility] MCV (RBC) [Entitic vol] 105 fL High 80 - 100 fL [facility] Nucleated RBC/100 WBC (Bld) [Ratio] 0.0 % [facility] Platelets (Bld) [#/Vol] 107 10*3/uL [facility] RBC (Bld) [#/Vol] 2.54 10*6/uL [facility] WBC (Bld) [#/Vol] 4.1 10*3/uL [facility] Erythrocyte distribution width (RBC) [Ratio] 14.3 % Normal 11.5-14.5 [facility] Comment on above: Performed By: #### 2 341-6 #### BEVERLEY Poe ([id number]) [facility] ([facility]) [address] [place] [address] Hematocrit (Bld) [Volume fraction] 26.6 % Low 36.0-46.0 [facility] Comment on above: Performed By: #### 2 341-6 #### BEVERLEY Poe ([id number]) [facility] ([facility]) [address] [place] [address] 76[address] Hemoglobin (Bld) [Mass/Vol] 7.6 g/dL Low 12.0-16.0 [facility] Comment on above: Performed By: #### 2 341-6 #### BEVERLEY Poe ([id number]) [facility] ([facility]) [address] [place] [address] 73[address] MCH (RBC) [Entitic mass] 29.9 pg Normal 26.0-34.0 [facility] Comment on above: Performed By: #### 2 341-6 #### BEVERLEY Poe ([id number]) [facility] ([facility]) [address] [place] [address] MCHC (RBC) [Mass/Vol] 28.6 g/dL Low 32.0-36.0 [facility] Comment on above: Performed By: #### 2 341-6 #### BEVERLEY Poe ([id number]) [facility] ([facility]) [address] [place] [address] 58206 MCV (RBC) [Entitic vol] 105 fL High 80-100 [facility] Comment on above: Performed By: #### 2 341-6 #### BEVERLEY Poe ([id number]) [facility] ([facility]) [address] [place] [address] 54611 Nucleated RBC/100 WBC (Bld) [Ratio] 0.0 /100 WBCs Normal 0.0-0.0 [facility] Comment on above: Performed By: #### 2 341-6 #### BEVERLEY Poe ([id number]) [facility] ([facility]) [address] [place] [address] 74447 Platelets (Bld) [#/Vol] 107 x10*3/uL Low 150-450 [facility] Comment on above: Performed By: #### 2 341-6 #### BEVERLEY Poe ([id number]) [facility]) [address] [place] [address] RBC (Bld) [#/Vol] 2.54 x10*6/uL Low 4.00-5.20 [facility] Comment on above: Performed By: #### 2 341-6 #### BEVERLEY Poe ([id number]) [facility] ([facility]) [address] [place] [address] WBC (Bld) [#/Vol] 4.1 x10*3/uL Low 4.4-11.3 [facility] Comment on above: Performed By: #### 2 341-6 #### BEVERLEY Poe ([id number]) [facility] ([facility]) [address] [place] [address] CTA Heart and Coronary arter ies WO and W contrast Jack 09-26-2023 Radiology Study observation (narrative) [facility] Work Phone: [phone] ECG 12 LeadOrdered By: Monse Piedra on 09-26-2023 Atrial Rate 96 BPM [facility] Work Phone: [phone] P Stanley 61 degrees [facility] Work Phone: [phone] P Offset 197 ms [facility] Work Phone: [phone] P Onset 133 ms [facility] Work Phone: [phone] PA Interval 156 ms [facility] Work Phone: [phone] Q Onset 211 ms [facility] Work Phone: [phone] QRS Count 16 beats [facility] Work Phone: [phone] QRS Duration 136 ms [facility] Work Phone: [phone] QT Interval 380 ms [facility] Work Phone: [phone] QTC Calculation(Bazett) 480 ms [facility] Work Phone: [phone] QTC Fredericia 444 [facility] Work Phone: R Stanley -49 degrees [facility] Work Phone: T Stanley 77 degrees [facility] Work Phone: T Offset 401 [facility] Work Phone: Ventricular Rate 96 BPM [facility] Work Phone: [facility] Work Phone: ECG 12 Leadon 09-26-2023 MUSE [facility] Work Phone: Magnesiumon 09-26-2023 Magnesium [Mass/Vol] 2.17 mg/dL 1.60 - 2.40 mg/dL [facility] Magnesium [Mass/Vol] 2.17 mg/dL Normal 1.60-2.40 [facility] Comment on above: Performed By: #### 2 341-6 #### BEVERLEY Poe ([id number]) [facility] ([facility]) [address] [place] [address] Magnesium [Mass/Vol]on 09-26 Interpretation and review of laboratory results Normal [facility] No Panel Informationon 09-26 [facility] Renal function 2000 panelon 09-26-2023 Albumin BCP dye [Mass/Vol] 2.8 g/dL Low 3.4 - 5.0 g/dL [facility] Anion gap [Moles/Vol] mmol/L Low 10 - 2 0 mmol/L [facility] Calcium [Mass/Vol] 8.6 mg/dL 8.6 - 10. 6 mg/dL [facility] Chloride [Moles/Vol] 101 mmol/L 98 - 10 7 mmol/L [facility] CO2 [Moles/Vol] 45 mmol/L Critically high 21 - 32 mmol/L [facility] Creatinine [Mass/Vol] 0.45 mg/dL Low 0.50 - 1.05 mg/dL [facility] GFR/1.73 sq M.predicted MDRD (S/P/Bld) [Vol rate/Area] - PINF [facility] Glucose [Mass/Vol] 111 mg/dL High 74 - 99 mg/dL [facility] Interpretation and review of laboratory results Abnormal [facility] Phosphate [Mass/Vol] 3.2 mg/dL 2.5 - 4 .9 mg/dL [facility] Potassium [Moles/Vol] 3.8 mmol/L 3.5 - 5.3 mmol/L [facility] Sodium [Moles/Vol] 147 mmol/L High 136 - 145 mmol/L [facility] Urea nitrogen [Mass/Vol] 16 mg/dL 6 - 23 mg/dL [facility] Albumin BCP dye [Mass/Vol] 2.8 g/dL Low 3.4-5.0 [facility] Comment on above: Performed By: #### 2 341-6 #### BEVERLEY Poe ([id number]) [facility] ([facility]) [address] [place] [address] Anion gap [Moles/Vol] mmol/L Low 10-20 [facility] Comment on above: Performed By: #### 2 341-6 #### BEVERLEY Poe ([id number]) [facility] ([facility]) [address] [place] [address] 33813 Calcium [Mass/Vol] 8.6 mg/dL Normal 8.6-10.6 [facility] Comment on above: Performed By: #### 2 341-6 #### BEVERLEY Poe ([id number]) [facility] ([facility]) [address] [place] [address] 74434 Chloride [Moles/Vol] 101 mmol/L Normal 98-107 [facility] Comment on above: Performed By: #### 2 341-6 #### BEVERLEY Poe ([id number]) [facility] ([facility]) [address] [place] [address] 55152 CO2 [Moles/Vol] 45 mmol/L Critically high 21-32 [facility] Comment on above: Performed By: #### 2 341-6 #### BEVERLEY Poe ([id number]) [facility] ([facility]) [address] [place] [address] Creatinine [Mass/Vol] 0.45 mg/dL Low 0.50-1.05 [facility] Comment on above: Performed By: #### 2 341-6 #### BEVERLEY Poe ([id number]) [facility] ([facility]) [address] [place] [address] GFR/1.73 sq M.predicted MDRD (S/P/Bld) [Vol rate/Area] mL/min/{1.73_m2} Normal >60 [facility] Comment on above: Result Comment: Calc ulations of estimated GFR are performed using the 2020 CKD-EPI Study Refit equation without the race variable for the IDMS-Traceable creatinine methods. https://jasn.asnjournals.org/content/early//ASN.16013 85934 Performed By: #### 2 341-6 #### BEVERLEY Poe ([id number]) [facility] ([facility]) [address] [place] [address] 74735 Glucose [Mass/Vol] 111 mg/dL High 74-99 [facility] Comment on above: Performed By: #### 2 341-6 #### BEVERLEY Poe ([id number]) [facility] ([facility]) [address] [place] [address] 72893 Phosphate [Mass/Vol] 3.2 mg/dL Normal 2.5-4.9 [facility] Comment on above: Result Comment: The performance characteristics of phosphorus testing in heparinized plasma have been validated by the individual laboratory site where testing is performed. Testing on heparinized plasma is not approved by the FDA; however, such approval is not necessary. Performed By: #### 2 341-6 #### BEVERLEY Poe ([id number]) [facility] ([facility]) [address] [place] [address] Potassium [Moles/Vol] 3.8 mmol/L Normal 3.5-5.3 [facility] Comment on above: Performed By: #### 2 341-6 #### BEVERLEY Poe ([id number]) [facility] ([facility]) [address] [place] [address] Sodium [Moles/Vol] 147 mmol/L High 136-145 [facility] Comment on above: Performed By: #### 2 341-6 #### BEVERLEY DODD L ([id number]) [facility] ([facility]) [address] [place] [address] Urea nitrogen [Mass/Vol] 16 mg/dL Normal 6-23 [facility] Comment on above: Performed By: #### 2 341-6 #### BEVERLEY Poe ([id number]) [facility] ([facility]) [address] [place] [address] 94318 MR Pelvis WO and W contrast Jack 09-25-2023 [facility] MMODAL [facility] MMODAL [facility] Work Phone: MR Pelvis WO and W contrast IVOrdered By: Clnit Woods on 09-25-2023 [facility] Work Phone: CBC panel Auto (Bld)on 09-24 Erythrocyte distribution width (RBC) [Ratio] 14.5 % 11.5 - 14.5 % [facility] Hematocrit (Bld) [Volume fraction] 26.5 % Low 36.0 - 46.0 % [facility] Hemoglobin (Bld) [Mass/Vol] 7.8 g/dL Low 12.0 - 16.0 g/dL [facility] Interpretation and review of laboratory results Abnormal [facility] MCH (RBC) [Entitic mass] 29.1 pg 26.0 - 34.0 pg [facility] MCHC (RBC) [Mass/Vol] 29.4 g/dL Low 32.0 - 36.0 g/dL [facility] MCV (RBC) [Entitic vol] 99 fL 80 - 100 fL [facility] Nucleated RBC/100 WBC (Bld) [Ratio] 0.0 % [facility] Platelets (Bld) [#/Vol] 96 10*3/uL Low [facility] RBC (Bld) [#/Vol] 2.68 10*6/uL Low [facility] WBC (Bld) [#/Vol] 4.7 10*3/uL [facility] Erythrocyte distribution width (RBC) [Ratio] 14.5 % Normal 11.5-14.5 [facility] Comment on above: Performed By: #### 2 341-6 #### BEVERLEY Poe ([id number]) [facility] ([facility]) [address] [place] [address] 40140 Hematocrit (Bld) [Volume fraction] 26.5 % Low 36.0-46.0 [facility] Comment on above: Performed By: #### 2 341-6 #### BEVERLEY Poe ([id number]) [facility] ([facility]) [address] [place] [address] 95369 Hemoglobin (Bld) [Mass/Vol] 7.8 g/dL Low 12.0-16.0 [facility] Comment on above: Performed By: #### 2 341-6 #### BEVERLEY Poe ([id number]) [facility] ([facility]) [address] [place] [address] 92279 MCH (RBC) [Entitic mass] 29.1 pg Normal 26.0-34.0 [facility] Comment on above: Performed By: #### 2 341-6 #### BEVERLEY Poe ([id number]) [facility] ([facility]) [address] [place] [address] 75599 MCHC (RBC) [Mass/Vol] 29.4 g/dL Low 32.0-36.0 [facility] Comment on above: Performed By: #### 2 341-6 #### BEVERLEY Poe ([id number]) [facility] ([facility]) [address] [place] [address] 56412 MCV (RBC) [Entitic vol] 99 fL Normal 80-100 [facility] Comment on above: Performed By: #### 2 341-6 #### BEVERLEY Poe ([id number]) [facility] ([facility]) [address] [place] [address] Nucleated RBC/100 WBC (Bld) [Ratio] 0.0 /100 WBCs Normal 0.0-0.0 [facility] Comment on above: Performed By: #### 2 341-6 #### BEVERLEY Poe ([id number]) [facility] ([facility]) [address] [place] [address] Platelets (Bld) [#/Vol] 96 x10*3/uL Low 150-450 [facility] Comment on above: Performed By: #### 2 341-6 #### BEVERLEY Poe ([id number]) [facility] ([facility]) [address] [place] [address] 37461 RBC (Bld) [#/Vol] 2.68 x10*6/uL Low 4.00-5.20 [facility] Comment on above: Performed By: #### 2 341-6 #### BEVERLEY Poe ([id number]) [facility] ([facility]) [address] [place] [address] 76479 WBC (Bld) [#/Vol] 4.7 x10*3/uL Normal 4.4-11.3 [facility] Comment on above: Performed By: #### 2 341-6 #### BEVERLEY Poe ([id number]) [facility] ([facility]) [address] [place] [address] 46638 Glucose Test strip manual (B ld) [Mass/Vol]on 09-24-2023 Glucose [Mass/Vol] 135 mg/dL High 74 - 99 mg/dL [facility] Interpretation and review of laboratory results Abnormal [facility] Magnesiumon 09-24-2023 Magnesium [Mass/Vol] 2.01 mg/dL 1.60 - 2.40 mg/dL [facility] Magnesium [Mass/Vol] 2.01 mg/dL Normal 1.60-2.40 [facility] Comment on above: Performed By: #### 2 341-6 #### BEVERLEY Poe ([id number]) [facility] ([facility]) [address] [place] [address] Magnesium [Mass/Vol]on 09-24 Interpretation and review of laboratory results Normal [facility] No Panel Informationon 09-24 [facility] Renal function 2000 panelon 09-24-2023 Albumin BCP dye [Mass/Vol] 2.8 g/dL Low 3.4 - 5.0 g/dL [facility] Anion gap [Moles/Vol] 10 mmol/L 10 - 2 0 mmol/L [facility] Calcium [Mass/Vol] 8.4 mg/dL Low 8.6 - 10. 6 mg/dL [facility] Chloride [Moles/Vol] 98 mmol/L 98 - 10 7 mmol/L [facility] CO2 [Moles/Vol] 42 mmol/L Critically high 21 - 32 mmol/L [facility] Creatinine [Mass/Vol] 0.42 mg/dL Low 0.50 - 1.05 mg/dL [facility] GFR/1.73 sq M.predicted MDRD (S/P/Bld) [Vol rate/Area] - PINF [facility] Glucose [Mass/Vol] 140 mg/dL High 74 - 99 mg/dL [facility] Interpretation and review of laboratory results Abnormal [facility] Phosphate [Mass/Vol] 3.3 mg/dL 2.5 - 4 .9 mg/dL [facility] Potassium [Moles/Vol] 4.0 mmol/L 3.5 - 5.3 mmol/L [facility] [facility] Sodium [Moles/Vol] 146 mmol/L High 136 - 145 mmol/L [facility] Urea nitrogen [Mass/Vol] 10 mg/dL 6 - 23 mg/dL [facility] Albumin BCP dye [Mass/Vol] 2.8 g/dL Low 3.4-5.0 [facility] Comment on above: Performed By: #### 2 341-6 #### BEVERLEY Poe ([id number]) [facility] ([facility]) [address] [place] [address] Anion gap [Moles/Vol] 10 mmol/L Normal 10-20 [facility] Comment on above: Performed By: #### 2 341-6 #### BEVERLEY DODD L ([id number]) [facility] ([facility]) [address] [place] [address] Calcium [Mass/Vol] 8.4 mg/dL Low 8.6-10.6 [facility] Comment on above: Performed By: #### 2 341-6 #### BEVERLEY DODD L ([id number]) [facility] ([facility]) [address] [place] [address] Chloride [Moles/Vol] 98 mmol/L Normal 98-107 [facility] Comment on above: Performed By: #### 2 341-6 #### BEVERLEY DODD L ([id number]) [facility] ([facility]) [id number] [place] [address] CO2 [Moles/Vol] 42 mmol/L Critically high 21-32 [facility] Comment on above: Performed By: #### 2 341-6 #### BEVERLEY DODD L ([id number]) [facility] ([facility]) [address] [place] [address] Creatinine [Mass/Vol] 0.42 mg/dL Low 0.50-1.05 [facility] Comment on above: Performed By: #### 2 341-6 #### BEVERLEY DODD L ([id number]) [facility] ([facility]) [address] [place] [address] GFR/1.73 sq M.predicted MDRD (S/P/Bld) [Vol rate/Area] mL/min/{1.73_m2} Normal >60 [facility] Comment on above: Result Comment: Calc ulations of estimated GFR are performed using the 2020 CKD-EPI Study Refit equation without the race variable for the IDMS-Traceable creatinine methods. https://jasn.asnjournals.org/content//ASN.96064 42965 Performed By: #### 2 341-6 #### BEVERLEY DODD L ([id number]) [facility] ([facility]) [address] [place] [address] Glucose [Mass/Vol] 140 mg/dL High 74-99 [facility] Comment on above: Performed By: #### 2 341-6 #### BEVERLEY Poe ([id number]) [facility] ([facility]) [address] [place] [address] Phosphate [Mass/Vol] 3.3 mg/dL Normal 2.5-4.9 [facility] Comment on above: Result Comment: The performance characteristics of phosphorus testing in heparinized plasma have been validated by the individual laboratory site where testing is performed. Testing on heparinized plasma is not approved by the FDA; however, such approval is not necessary. Performed By: #### 2 341-6 #### BEVERLEY Poe ([id number]) [facility] ([facility]) [address] [place] [address] Potassium [Moles/Vol] 4.0 mmol/L Normal 3.5-5.3 [facility] Comment on above: Performed By: #### 2 341-6 #### BEVERLEY Poe ([id number]) [facility] ([facility]) [address] [place] [address] Sodium [Moles/Vol] 146 mmol/L High 136-145 [facility] Comment on above: Performed By: #### 2 341-6 #### BEVERLEY Poe ([id number]) [facility] ([facility]) [address] [place] [address] Urea nitrogen [Mass/Vol] 10 mg/dL Normal 6-23 [facility] Comment on above: Performed By: #### 2 341-6 #### BEVERLEY Poe ([id number]) [facility] ([facility]) [address] [place] [address] CBC panel Auto (Bld)on 09-23 Erythrocyte distribution width (RBC) [Ratio] 14.4 % 11.5 - 14.5 % [facility] Hematocrit (Bld) [Volume fraction] 26.9 % Low 36.0 - 46.0 % [facility] Hemoglobin (Bld) [Mass/Vol] 7.7 g/dL Low 12.0 - 16.0 g/dL [facility] Interpretation and review of laboratory results Abnormal [facility] MCH (RBC) [Entitic mass] 29.8 pg 26.0 - 34.0 pg [facility] MCHC (RBC) [Mass/Vol] 28.6 g/dL Low 32.0 - 36.0 g/dL [facility] MCV (RBC) [Entitic vol] 104 fL High 80 - 100 fL [facility] Nucleated RBC/100 WBC (Bld) [Ratio] 0.0 % [facility] Platelets (Bld) [#/Vol] 93 10*3/uL Low [facility] RBC (Bld) [#/Vol] 2.58 10*6/uL Low [facility] WBC (Bld) [#/Vol] 4.9 10*3/uL [facility] Erythrocyte distribution width (RBC) [Ratio] 14.4 % Normal 11.5-14.5 [facility] Comment on above: Performed By: #### 2 341-6 #### BEVERLEY Poe ([id number]) [facility] ([facility]) [address] [place] [address] Hematocrit (Bld) [Volume fraction] 26.9 % Low 36.0-46.0 [facility] Comment on above: Performed By: #### 2 341-6 #### BEVERLEY Poe ([id number]) [facility] ([facility]) [address] [place] [address] Hemoglobin (Bld) [Mass/Vol] 7.7 g/dL Low 12.0-16.0 [facility] Comment on above: Performed By: #### 2 341-6 #### BEVERLEY Poe ([id number]) [facility] ([facility]) [address] [place] [address] MCH (RBC) [Entitic mass] 29.8 pg Normal 26.0-34.0 [facility] Comment on above: Performed By: #### 2 341-6 #### BEVERLEY Poe ([id number]) [facility] ([facility]) [address] [place] [address] MCHC (RBC) [Mass/Vol] 28.6 g/dL Low 32.0-36.0 [facility] Comment on above: Performed By: #### 2 341-6 #### BEVERLEY Poe ([id number]) [facility] ([facility]) [address] [place] [address] MCV (RBC) [Entitic vol] 104 fL High 80-100 [facility] Comment on above: Performed By: #### 2 341-6 #### BEVERLEY Poe ([id number]) [facility] ([facility]) [address] [place] [address] Nucleated RBC/100 WBC (Bld) [Ratio] 0.0 /100 WBCs Normal 0.0-0.0 [facility] Comment on above: Performed By: #### 2 341-6 #### BEVERLEY Poe ([id number]) [facility] ([facility]) [address] [place] [address] Platelets (Bld) [#/Vol] 93 x10*3/uL Low 150-450 [facility] Comment on above: Performed By: #### 2 341-6 #### BEVERLEY Poe ([id number]) [facility] ([facility]) [address] [place] [address] RBC (Bld) [#/Vol] 2.58 x10*6/uL Low 4.00-5.20 [facility] Comment on above: Performed By: #### 2 341-6 #### BEVERLEY Poe ([id number]) [facility] ([facility]) [address] [place] [address] WBC (Bld) [#/Vol] 4.9 x10*3/uL Normal 4.4-11.3 [facility] Comment on above: Performed By: #### 2 341-6 #### BEVERLEY Poe ([id number]) [facility] ([facility]) [address] [place] [id number] ANGIO CORONARY ART WITH H EARTFLOW IF SCORE >30%on 09-23-2023 CT ANGIO CORONARY ART WITH HEARTFLOW IF SCORE >30% Interpreted By: Yair Pham and Akula Navya STUDY: CT ANGIO CORONARY ART WITH HEARTFLOW IF SCORE >30%; 09/26/2023 1:38 pm INDICATION: Signs/Symptoms:Reduced EF; Pre Op optimization. COMPARISON: None. ACCESSION NUMBER(S): [id number] ORDERING CLINICIAN: KANG JULIAN TECHNIQUE: Using multi-detector CT technology, axial, sequential imaging with prospective gating was performed of the chest following the intravenous administration of contrast material. A low-osmolar contrast agent was used (90 mL of Omnipaque 350). The patient was premedicated with 100 p.o. and 20 mg i.v metoprolol and 0.8 mg sublingual nitroglycerin for heart rate control and coronary dilation, respectively. For optimization of anatomic evaluation, multiplanar reconstruction, maximum intensity projections, and advanced 3-D off-line postprocessing were performed on a dedicated stand-alone workstation under the direct supervision of the interpreting physician. CT Dose-Length Product (DLP): 1552 mGy/cm CT Dose Reduction Employed: Yes (Prospective triggering, iterative reconstruction) FINDINGS: POTENTIAL STUDY LIMITATIONS: Step-artifact. CORONARY ARTERIES: CORONARY ARTERY CALCIUM SCORE: The score and distribution of calcium in the coronary arteries is as follows: LM 0, LAD 31.5, LCx 0, RCA 3.0, Total 34.5 CORONARY ANATOMY: There is normal origin of the coronary arteries. LEFT MAIN CORONARY ARTERY: The left main is normal sized vessel that bifurcates into the LAD and circumflex. There is no significant atherosclerotic change or stenotic disease. LEFT ANTERIOR DESCENDING ARTERY: The LAD is a large size vessel that wraps around the apex. It gives rise to 3 acute diagonal branches. There are small/focal calcified atherosclerotic plaques of the proximal to mid LAD with minimal stenosis (<25%). LEFT CIRCUMFLEX ARTERY: The LCX is a large sized vessel, which is non-dominant. It gives rise to 1 obtuse marginal branches. There is no significant atherosclerotic change or stenotic disease. RIGHT CORONARY ARTERY: The RCA is a large sized vessel, which is dominant. The RCA is best assessed on 40% phase. It gives rise to a conus branch, cheri branch, and 2 acute marginal branches. In its distal segment it bifurcates into the PDA and PV branch. The RCA has no significant atherosclerotic change or stenotic disease. There is some step artifact mid RCA. CARDIAC CHAMBERS: The cardiac chambers demonstrate normal atrioventricular and ventriculoarterial concordance, and systemic and pulmonary venous return. LEFT ATRIUM: Normal size (28.08-cm2) RIGHT ATRIUM: Normal size (21.75-cm2) INTERATRIAL SEPTUM: Intact. LEFT VENTRICLE: Dilated (6.4-cm) RIGHT VENTRICLE: Normal size (3.8-cm) AORTIC VALVE: The aortic valve is trileaflet in morphology. No calcifications. MITRAL VALVE: No thickening/calcification. THORACIC AORTA: The visualized thoracic aorta is normal in course, caliber, and contour. There is no acute aortic pathology, such as dissection, intramural hematoma, or contained rupture. The aortic arch is not included on this examination. PERICARDIUM: There is no pericardial effusion of thickening. CHEST: The chest wall is normal. No significant lymphadenopathy or mass is seen in limited images of the mediastinum. Limited imaging through the lungs reveals bibasilar atelectasis. Left small pleural effusion. UPPER ABDOMEN: Limited imaging through the upper abdomen reveals no abnormalities of the visualized organs. Moderate to severe degenerative changes of the thoracic spine. IMPRESSION: 1. Minor coronary artery disease. 2. The proximal-mid LAD has focal regions of calcified plaque with minimal stenosis (<25%). 3. The LM, LCx and RCA have no significant atherosclerotic change or stenotic disease. 4. Right dominant coronary artery system. 5. Total coronary calcium score 35. 6. Left ventricular dilatation. 7. Small left pleural effusion. MACRO: Classification Maximal Stenosis Interpretation CAD-RADS 0: 0% No coronary disease CAD-RADS 1: 1 - 24%* Minimal non-obstructive CAD-RADS 2: 25 - 49% Mild non-obstructive CAD-RADS 3: 50 - 69% Moderate stenosis CAD-RADS 4 A: A: 70 - 99% Severe Stenosis CAD-RADS 4B: Left Main >50% or 3-vessel ? 70% CAD-RADS 5: 100% Total coronary occlusion Further Cardiac Investigation CAD-RADS (0-2): No further workup CAD-RADS (3): Consider functional assessment CAD-RADS (4A): Consider ICA or functional assessment CAD-RADS (4B): ICA recommended CAD-RADS (5): Consider ICA and/or viability assessment Signed by: Yair Pham 09/28/2023 11:26 AM Dictation workstation: [id number] [facility] Carcinoembryonic Agon 2022 Carcinoembryonic Ag [Mass/Vol] ng/mL [facility] Comment on above: Order Comment: REF V ALUES NONSMOKERS 0-2.5 SMOKERS 0-5.0CEA testing is performed by chemiluminescent immunoassay using the Siemens Teikon. Values obtained with different analytic methods cannot be used interchangeably.Serum CEA measurement is intended for use as an aid in the management of patients previously treated for cancer. This assay is not intended for screening or diagnosis of cancer in the general population. The results must notbe used as the sole means for clinical diagnosis or patient management decisions. Performed By: #### 2 341-6 #### BEVERLEY Poe ([id number]) [facility] ([facility]) [address] [place] [address] Carcinoembryonic Ag [Mass/Vo l]on 09-23-2023 [facility] Carcinoembryonic Antigenon 1 11-23-2022 Carcinoembryonic Ag [Mass/Vol] ug/L ug/L [facility] Glucose Test strip manual (B ld) [Mass/Vol]on 09-23-2023 Glucose [Mass/Vol] 146 mg/dL High 74 - 99 mg/dL [facility] Interpretation and review of laboratory results Abnormal [facility] Glucose [Mass/Vol] 146 mg/dL High 74-99 [facility] Comment on above: Performed By: #### 2 341-6 #### BEVERLEY Poe ([id number]) [facility] ([facility]) [address] [place] [address] Glucose [Mass/Vol] 161 mg/dL High 74 - 99 mg/dL [facility] Interpretation and review of laboratory results Abnormal [facility] Glucose [Mass/Vol] 161 mg/dL High 74-99 [facility] Comment on above: Performed By: #### 2 341-6 #### BEVERLEY Poe ([id number]) [facility] ([facility]) [address] [place] [address] Magnesiumon 09-23-2023 Magnesium [Mass/Vol] 2.04 mg/dL 1.60 - 2.40 mg/dL [facility] Magnesium [Mass/Vol] 2.04 mg/dL Normal 1.60-2.40 [facility] Comment on above: Performed By: #### 2 341-6 #### BEVERLEY Poe ([id number]) [facility] ([facility]) [address] [place] [address] Magnesium [Mass/Vol]on 09-23 Interpretation and review of laboratory results Normal [facility] No Panel Informationon 09-23 [facility] Renal function 2000 panelon 09-23-2023 Albumin BCP dye [Mass/Vol] 2.9 g/dL Low 3.4 - 5.0 g/dL [facility] Anion gap [Moles/Vol] 8 mmol/L Low 10 - 2 0 mmol/L [facility] Calcium [Mass/Vol] 8.7 mg/dL 8.6 - 10. 6 mg/dL [facility] Chloride [Moles/Vol] 100 mmol/L 98 - 10 7 mmol/L [facility] CO2 [Moles/Vol] 40 mmol/L Critically high 21 - 32 mmol/L [facility] Creatinine [Mass/Vol] 0.42 mg/dL Low 0.50 - 1.05 mg/dL [facility] GFR/1.73 sq M.predicted MDRD (S/P/Bld) [Vol rate/Area] - PINF [facility] Glucose [Mass/Vol] 123 mg/dL High 74 - 99 mg/dL [facility] Interpretation and review of laboratory results Abnormal [facility] Phosphate [Mass/Vol] 3.0 mg/dL 2.5 - 4 .9 mg/dL [facility] Potassium [Moles/Vol] 4.0 mmol/L 3.5 - 5.3 mmol/L [facility] Sodium [Moles/Vol] 144 mmol/L 136 - 145 mmol/L [facility] Urea nitrogen [Mass/Vol] 13 mg/dL 6 - 23 mg/dL [facility] Albumin BCP dye [Mass/Vol] 2.9 g/dL Low 3.4-5.0 [facility] Comment on above: Performed By: #### 2 341-6 #### BEVERLEY Poe ([id number]) [facility] ([facility]) [id number] [place] [address] Anion gap [Moles/Vol] 8 mmol/L Low 10-20 [facility] Comment on above: Performed By: #### 2 341-6 #### BEVERLEY Poe ([id number]) [facility] ([facility]) [address] [place] [address] Calcium [Mass/Vol] 8.7 mg/dL Normal 8.6-10.6 [facility] Comment on above: Performed By: #### 2 341-6 #### BEVERLEY Poe ([id number]) [facility] ([facility]) [address] [place] [address] Chloride [Moles/Vol] 100 mmol/L Normal 98-107 [facility] Comment on above: Performed By: #### 2 341-6 #### BEVERLEY DODD L ([id number]) [facility] ([facility]) [id number] [place] [address] CO2 [Moles/Vol] 40 mmol/L Critically high 21-32 [facility] Comment on above: Performed By: #### 2 341-6 #### BEVERLEY DODD L ([id number]) [facility] ([facility]) [address] [place] [address] Creatinine [Mass/Vol] 0.42 mg/dL Low 0.50-1.05 [facility] Comment on above: Performed By: #### 2 341-6 #### BEVERLEY DODD L ([id number]) [facility] ([facility]) [address] [place] [address] GFR/1.73 sq M.predicted MDRD (S/P/Bld) [Vol rate/Area] mL/min/{1.73_m2} Normal >60 [facility] Comment on above: Result Comment: Calc ulations of estimated GFR are performed using the 2020 CKD-EPI Study Refit equation without the race variable for the IDMS-Traceable creatinine methods. https://jasn.asnjournals.org/content/early//ASN.38375 93345 Performed By: #### 2 341-6 #### BEVERLEY Poe ([id number]) [facility] ([facility]) [address] [place] [address] Glucose [Mass/Vol] 123 mg/dL High 74-99 [facility] Comment on above: Performed By: #### 2 341-6 #### BEVERLEY Poe ([id number]) [facility] ([facility]) [address] [place] [address]5545 Phosphate [Mass/Vol] 3.0 mg/dL Normal 2.5-4.9 [facility] Comment on above: Result Comment: The performance characteristics of phosphorus testing in heparinized plasma have been validated by the individual laboratory site where testing is performed. Testing on heparinized plasma is not approved by the FDA; however, such approval is not necessary. Performed By: #### 2 341-6 #### BEVERLEY Poe ([id number]) [facility] ([facility]) [address] [place] [address] Potassium [Moles/Vol] 4.0 mmol/L Normal 3.5-5.3 [facility] Comment on above: Performed By: #### 2 341-6 #### BEVERLEY Poe ([id number]) [facility] ([facility]) [address] [place] [address] Sodium [Moles/Vol] 144 mmol/L Normal 136-145 [facility] Comment on above: Performed By: #### 2 341-6 #### BEVERLEY Poe ([id number]) [facility] ([facility]) [address] [place] [phone] Urea nitrogen [Mass/Vol] 13 mg/dL Normal 6-23 [facility] Comment on above: Performed By: #### 2 341-6 #### BEVERLEY Poe ([id number]) [facility] ([facility]) [address] [place] [address] Bacteria identified Cx Nom ( U)Ordered By: Rakesh Srivastava on 09-22-2023 Interpretation and review of laboratory results Abnormal [facility] CBC panel Auto (Bld)on 09-22 Erythrocyte distribution width (RBC) [Ratio] 14.6 % High 11.5 - 14.5 % [facility] Hematocrit (Bld) [Volume fraction] 27.9 % Low 36.0 - 46.0 % [facility] Hemoglobin (Bld) [Mass/Vol] 8.0 g/dL Low 12.0 - 16.0 g/dL [facility] Interpretation and review of laboratory results Abnormal [facility] MCH (RBC) [Entitic mass] 29.9 pg 26.0 - 34.0 pg [facility] MCHC (RBC) [Mass/Vol] 28.7 g/dL Low 32.0 - 36.0 g/dL [facility] MCV (RBC) [Entitic vol] 104 fL High 80 - 100 fL [facility] Nucleated RBC/100 WBC (Bld) [Ratio] 0.0 % [facility] Platelets (Bld) [#/Vol] 99 10*3/uL Low [facility] RBC (Bld) [#/Vol] 2.68 10*6/uL [facility] WBC (Bld) [#/Vol] 4.7 10*3/uL [facility] Erythrocyte distribution width (RBC) [Ratio] 14.6 % High 11.5-14.5 [facility] Comment on above: Performed By: #### 3 4532-2 #### BEVERLEY Poe ([id number]) [facility] [address] [place] [address] Hematocrit (Bld) [Volume fraction] 27.9 % Low 36.0-46.0 [facility] Comment on above: Performed By: #### 3 4532-2 #### BEVERLEY Poe ([id number]) [facility] ([facility]) [address] [place] [address] Hemoglobin (Bld) [Mass/Vol] 8.0 g/dL Low 12.0-16.0 [facility] Comment on above: Performed By: #### 3 4531-2 #### BEVERLEY Poe ([id number]) [facility] ([facility]) [address] [place] [address] MCH (RBC) [Entitic mass] 29.9 pg Normal 26.0-34.0 [facility] Comment on above: Performed By: #### 3 453-2 #### BEVERLEY Poe ([id number]) [facility] ([facility]) [address] [place] [address] MCHC (RBC) [Mass/Vol] 28.7 g/dL Low 32.0-36.0 [facility] Comment on above: Performed By: #### 3 453-2 #### BEVERLEY Poe ([id number]) [facility] ([facility]) [address] [place] [address] MCV (RBC) [Entitic vol] 104 fL High 80-100 [facility] Comment on above: Performed By: #### 3 453-2 #### BEVERLEY Poe ([id number]) [facility] ([facility]) [address] [place] [address] Nucleated RBC/100 WBC (Bld) [Ratio] 0.0 /100 WBCs Normal 0.0-0.0 [facility] Comment on above: Performed By: #### 3 4532-2 #### BEVERLEY Poe ([id number]) [facility] ([facility]) [address] [place] [address] Platelets (Bld) [#/Vol] 99 x10*3/uL Low 150-450 [facility] Comment on above: Performed By: #### 3 4532-2 #### BEVERLEY Poe ([id number]) [facility] ([facility]) [address] [place] [address] RBC (Bld) [#/Vol] 2.68 x10*6/uL Low 4.00-5.20 [facility] Comment on above: Performed By: #### 3 4532-2 #### BEVERLEY Poe ([id number]) [facility] ([facility]) [address] [place] [address] WBC (Bld) [#/Vol] 4.7 x10*3/uL Normal 4.4-11.3 [facility] Comment on above: Performed By: #### 3 4532-2 #### BEVERLEY Poe ([id number]) [facility] ([facility]) [address] [place] [address] Glucose Test strip manual (B ld) [Mass/Vol]on 09-22-2023 Glucose [Mass/Vol] 160 mg/dL High 74 - 99 mg/dL [facility] Interpretation and review of laboratory results Abnormal [facility] Glucose [Mass/Vol] 160 mg/dL High 74-99 [facility] Comment on above: Performed By: #### 2 341-6 #### BEVERLEY Poe ([id number]) [facility] ([facility]) [address] [place] [address] Glucose [Mass/Vol] 174 mg/dL High 74 - 99 mg/dL [facility] Interpretation and review of laboratory results Abnormal [facility] Glucose [Mass/Vol] 174 mg/dL High 74-99 [facility] Comment on above: Performed By: #### 2 341-6 #### BEVERLEY Poe ([id number]) [facility] ([facility]) [address] [place] [address] Glucose [Mass/Vol] 135 mg/dL High 74-99 [facility] Comment on above: Performed By: #### 2 341-6 #### BEVERLEY Poe ([id number]) [facility] ([facility]) [address] [place] [address] Glucose [Mass/Vol] 148 mg/dL High 74 - 99 mg/dL [facility] Interpretation and review of laboratory results Abnormal [facility] Glucose [Mass/Vol] 148 mg/dL High 74-99 [facility] Comment on above: Performed By: #### 3 4532-2 #### BEVERLEY Poe ([id number]) [facility] ([facility]) [id number] [place] [address]13 Magnesiumon 09-22-2023 Magnesium [Mass/Vol] 2.07 mg/dL 1.60 - 2.40 mg/dL [facility] Magnesium [Mass/Vol] 2.07 mg/dL Normal 1.60-2.40 [facility] Comment on above: Performed By: #### 3 4532-2 #### BEVERLEY Poe ([id number]) [facility] ([facility]) [address] [place] [address] 38798 Magnesium [Mass/Vol]on 09-22 Interpretation and review of laboratory results Normal [facility] No Panel Informationon 09-22 [facility] Renal function 2000 panelon 09-22-2023 Albumin BCP dye [Mass/Vol] 2.7 g/dL Low 3.4 - 5.0 g/dL [facility] Anion gap [Moles/Vol] 11 mmol/L 10 - 2 0 mmol/L [facility] Calcium [Mass/Vol] 8.3 mg/dL Low 8.6 - 10. 6 mg/dL [facility] Chloride [Moles/Vol] 101 mmol/L 98 - 10 7 mmol/L [facility] CO2 [Moles/Vol] 38 mmol/L High 21 - 32 mmol/L [facility] Creatinine [Mass/Vol] 0.42 mg/dL Low 0.50 - 1.05 mg/dL [facility] GFR/1.73 sq M.predicted MDRD (S/P/Bld) [Vol rate/Area] - PINF [facility] Glucose [Mass/Vol] 134 mg/dL High 74 - 99 mg/dL [facility] Interpretation and review of laboratory results Abnormal [facility] Phosphate [Mass/Vol] 3.4 mg/dL 2.5 - 4 .9 mg/dL [facility] Potassium [Moles/Vol] 4.0 mmol/L 3.5 - 5.3 mmol/L [facility] Sodium [Moles/Vol] 146 mmol/L High 136 - 145 mmol/L [facility] Urea nitrogen [Mass/Vol] 15 mg/dL 6 - 23 mg/dL [facility] Albumin BCP dye [Mass/Vol] 2.7 g/dL Low 3.4-5.0 [facility] Comment on above: Performed By: #### 3 4532-2 #### BEVERLEY Poe ([id number]) [facility] ([facility]) [address] [place] [address] Anion gap [Moles/Vol] 11 mmol/L Normal 10-20 [facility] Comment on above: Performed By: #### 3 4532-2 #### BEVERLEY Poe ([id number]) [facility] ([facility]) [address] [place] [address] Calcium [Mass/Vol] 8.3 mg/dL Low 8.6-10.6 [facility] Comment on above: Performed By: #### 3 4532-2 #### BEVERLEY Poe ([id number]) [facility] ([facility]) [address] [place] [address] Chloride [Moles/Vol] 101 mmol/L Normal 98-107 [facility] Comment on above: Performed By: #### 3 4532-2 #### BEVERLEY Poe ([id number]) [facility] ([facility]) [address] [place] [address] CO2 [Moles/Vol] 38 mmol/L High 21-32 [facility] Comment on above: Performed By: #### 3 4532-2 #### BEVERLEY Poe ([id number]) [facility] ([facility]) [address] [place] [address] Creatinine [Mass/Vol] 0.42 mg/dL Low 0.50-1.05 [facility] Comment on above: Performed By: #### 3 4532-2 #### BEVERLEY Poe ([id number]) [facility] ([facility]) [address] [place] [address] GFR/1.73 sq M.predicted MDRD (S/P/Bld) [Vol rate/Area] mL/min/{1.73_m2} Normal >60 [facility] Comment on above: Result Comment: Calc ulations of estimated GFR are performed using the 2020 CKD-EPI Study Refit equation without the race variable for the IDMS-Traceable creatinine methods. https://jasn.asnjournals.org/content/early//ASN.02883 36493 Performed By: #### 3 4532-2 #### BEVERLEY Poe ([id number]) [facility] ([facility]) [address] [place] [address] Glucose [Mass/Vol] 134 mg/dL High 74-99 [facility] Comment on above: Performed By: #### 3 4532-2 #### BEVERLEY Poe ([id number]) [facility] ([facility]) [address] [place] [address] Phosphate [Mass/Vol] 3.4 mg/dL Normal 2.5-4.9 [facility] Comment on above: Result Comment: The performance characteristics of phosphorus testing in heparinized plasma have been validated by the individual laboratory site where testing is performed. Testing on heparinized plasma is not approved by the FDA; however, such approval is not necessary. Performed By: #### 3 4532-2 #### BEVERLEY Poe ([id number]) [facility] ([facility]) [address] [place] [address] Potassium [Moles/Vol] 4.0 mmol/L Normal 3.5-5.3 [facility] Comment on above: Performed By: #### 3 4532-2 #### BEVERLEY Poe ([id number]) [facility] ([facility]) [address] [place] [address] Sodium [Moles/Vol] 146 mmol/L High 136-145 [facility] Comment on above: Performed By: #### 3 4532-2 #### BEVERLEY Poe ([id number]) [facility] ([facility]) [address] [place] [address] Urea nitrogen [Mass/Vol] 15 mg/dL Normal 6-23 [facility] Comment on above: Performed By: #### 3 4532-2 #### BEVERLEY Poe ([id number]) [facility] ([facility]) [address] [place] [address] Urine cultureOrdered By: Kel Srivastava on 09-22-2023 Bacteria identified Cx Nom (U) >100,000 Enterococcus faecium Abnormal [facility] CBC panel Auto (Bld)on 09-21 Erythrocyte distribution width (RBC) [Ratio] 14.4 % 11.5 - 14.5 % [facility] Hematocrit (Bld) [Volume fraction] 25.6 % Low 36.0 - 46.0 % [facility] Hemoglobin (Bld) [Mass/Vol] 8.0 g/dL Low 12.0 - 16.0 g/dL [facility] Interpretation and review of laboratory results Abnormal [facility] MCH (RBC) [Entitic mass] 30.5 pg 26.0 - 34.0 pg [facility] MCHC (RBC) [Mass/Vol] 31.3 g/dL Low 32.0 - 36.0 g/dL [facility] MCV (RBC) [Entitic vol] 98 fL 80 - 100 fL [facility] Nucleated RBC/100 WBC (Bld) [Ratio] 0.0 % [facility] Platelets (Bld) [#/Vol] 88 10*3/uL Low [facility] RBC (Bld) [#/Vol] 2.62 10*6/uL Low [facility] WBC (Bld) [#/Vol] 5.0 10*3/uL [facility] Erythrocyte distribution width (RBC) [Ratio] 14.4 % Normal 11.5-14.5 [facility] Comment on above: Performed By: #### 2 341-6 #### BEVERLEY Poe ([id number]) [facility] ([facility]) [address] [place] [address]35 Hematocrit (Bld) [Volume fraction] 25.6 % Low 36.0-46.0 [facility] Comment on above: Performed By: #### 2 341-6 #### BEVERLEY Poe ([id number]) [facility] ([facility]) [address] [place] [address]3771 Hemoglobin (Bld) [Mass/Vol] 8.0 g/dL Low 12.0-16.0 [facility] Comment on above: Performed By: #### 2 341-6 #### BEVERLEY Poe ([id number]) [facility] ([facility]) [address] [place] [address] 93815 MCH (RBC) [Entitic mass] 30.5 pg Normal 26.0-34.0 [facility] Comment on above: Performed By: #### 2 341-6 #### BEVERLEY Poe ([id number]) [facility] ([facility]) [address] [place] [address] MCHC (RBC) [Mass/Vol] 31.3 g/dL Low 32.0-36.0 [facility] Comment on above: Performed By: #### 2 341-6 #### BEVERLEY Poe ([id number]) [facility] ([facility]) [address] [place] [address]118 MCV (RBC) [Entitic vol] 98 fL Normal 80-100 [facility] Comment on above: Performed By: #### 2 341-6 #### BEVERLEY Poe ([id number]) [facility] ([facility]) [address] [place] [address] Nucleated RBC/100 WBC (Bld) [Ratio] 0.0 /100 WBCs Normal 0.0-0.0 [facility] Comment on above: Performed By: #### 2 341-6 #### BEVERLEY Poe ([id number]) [facility] ([facility]) [address] [place] [address] 38092 Platelets (Bld) [#/Vol] 88 x10*3/uL Low 150-450 [facility] Comment on above: Performed By: #### 2 341-6 #### BEVERLEY Poe ([id number]) [facility] ([facility]) [address] [place] [address] 92375 RBC (Bld) [#/Vol] 2.62 x10*6/uL Low 4.00-5.20 [facility] Comment on above: Performed By: #### 2 341-6 #### BEVERLEY Poe ([id number]) [facility] ([facility]) [address] [place] [address] WBC (Bld) [#/Vol] 5.0 x10*3/uL Normal 4.4-11.3 [facility] Comment on above: Performed By: #### 2 341-6 #### BEVERLEY Poe ([id number]) [facility] ([facility]) [address] [place] [address] 33826 Cancer Ag 125 Qnon 3 Interpretation and review of laboratory results Normal [facility] Cancer Antigen 125on 023 Cancer Ag 125 Qn 22.0 [arb'U]/mL 0.0 - 30 .2 U/mL [facility] Glucose Test strip manual (B ld) [Mass/Vol]on 09-21-2023 Glucose [Mass/Vol] 189 mg/dL High 74 - 99 mg/dL [facility] Interpretation and review of laboratory results Abnormal [facility] Glucose [Mass/Vol] 189 mg/dL High 74-99 [facility] Comment on above: Performed By: #### 3 4532-2 #### BEVERLEY Poe ([id number]) [facility] ([facility]) [address] [place] [address] Glucose [Mass/Vol] 120 mg/dL High 74 - 99 mg/dL [facility] Interpretation and review of laboratory results Abnormal [facility] Glucose [Mass/Vol] 120 mg/dL High 74-99 [facility] Comment on above: Performed By: #### 3 4532-2 #### BEVERLEY Poe ([id number]) [facility] ([facility]) [address] [place] [address]77 Glucose [Mass/Vol] 162 mg/dL High 74 - 99 mg/dL [facility] Interpretation and review of laboratory results Abnormal [facility] Glucose [Mass/Vol] 162 mg/dL High 74-99 [facility] Comment on above: Performed By: #### 3 4532-2 #### BEVERLEY Poe ([id number]) [facility] ([facility]) [address] [place] [address]992 Glucose [Mass/Vol] 134 mg/dL High 74 - 99 mg/dL [facility] Interpretation and review of laboratory results Abnormal [facility] Glucose [Mass/Vol] 134 mg/dL High 74-99 [facility] Comment on above: Performed By: #### 2 341-6 #### BEVERLEY Poe ([id number]) [facility] ([facility]) [address] [place] [address] 18311 Glucose [Mass/Vol] 136 mg/dL High 74 - 99 mg/dL [facility] Interpretation and review of laboratory results Abnormal [facility] Glucose [Mass/Vol] 136 mg/dL High 74-99 [facility] Comment on above: Performed By: #### 2 341-6 #### BEVERLEY Poe ([id number]) [facility] ([facility]) [address] [place] [address] Glucose [Mass/Vol] 123 mg/dL High 74 - 99 mg/dL [facility] Interpretation and review of laboratory results Abnormal [facility] Glucose [Mass/Vol] 123 mg/dL High 74-99 [facility] Comment on above: Performed By: #### 2 341-6 #### BEVERLEY Poe ([id number]) [facility] ([facility]) [address] [place] [address] MR PELVIS W AND WO IV CONTRA STon 09-21-2023 MR PELVIS W AND WO IV CONTRAST Interpreted By: Clint Thurman and Jonnie Paz STUDY: MR PELVIS W AND WO IV CONTRAST; 09/21/2023 9:11 am INDICATION: Signs/Symptoms:fistulae. Per EMR: Patient is a 72-year-old female with history of type 2 diabetes, chronic left lower quadrant abdominal pain with new foul-smelling discharge suspicious for colovesicular and/or colovaginal fistula. Physical examination suspicious for fistula. Outside hospital CT demonstrating chronic inflammatory changes throughout abdomen, bladder wall thickening, can not exclude colovesical colovaginal fistula. COMPARISON: None ACCESSION NUMBER(S): [id number] ORDERING CLINICIAN: KANG JULIAN TECHNIQUE: Multiplanar MRI of the pelvis was obtained including the following sequences: T2 weighted SSFSE, T2 FSE with and without fat saturation, pre and post gadolinium dynamic T1 GRE. 15 ml of Gadolinium contrast agent Dotarem were administered intravenously without complication. FINDINGS: BOWEL: Dense T2 hypointense signal about the sigmoid colon in the left lower quadrant (series 6, image 43) with likely representing multiple adhesions of the sigmoid colon to the bladder, uterus, and left ovary. Sigmoid diverticulosis with hyperemia about the sigmoid in the left lower quadrant on arterial phase images (series 14, image 51) compatible with inflammatory process. Heterogenous air-fluid peripherally enhancing collection interposed between the sigmoid colon and the bladder wall measures 3.0 x 2.7 x 2.6 cm (series 5, image 24; series 4, image 12). A hypoenhancing tract extends from this lesion through the superior bladder. The visualized portions of the anal canal appears normal without evidence of fistula or mass. BLADDER: Diffuse thickening of the bladder wall with urothelial/mucosal enhancement. There are layering debris noted and tiny nondependent foci of gas in the bladder lumen. The bladder lumen is decompressed with Barnes catheter and balloon in place, distinct from above-described finding. REPRODUCTIVE ORGANS: The uterus is anteverted. Multiple T2 hypointense lesions, the largest of which measuring 1.7 x 1.4 cm (series 5, image 13) compatible with fibroids. T2 hypointense lesion in the left adnexa measuring 2.1 x 1.8 x 1.6 cm (series 5, image 24; series 6, image 39) likely representing pedunculated fibroid. Adjacent tubular structure with T1 hyperintense material is noted in the left adnexa. The vagina and vulva are unremarkable. PELVIC LYMPH NODES: Scattered prominent, nonenlarged nodes which are nonspecific, possibly reactive in nature. PERITONEUM/RETROPERITONEU M: No free fluid. BONES AND PELVIC WALL: No focal lesions are noted in the bone. Included pelvic wall soft tissues are within normal limits. IMPRESSION: 1. Complicated sigmoid diverticulitis with associated abscess abutting the superior bladder and development of colovesicular fistula. 2. 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 3. Multiple fibroids including a mass projected to the left adnexa favored to be pedunculated fibroid versus less likely fibrous ovarian mass such as fibroma and fibrothecoma. 4. Tubular structure in the left adnexa with intrinsic T1 hyperintense signal suspicious for small volume hematosalpinx. I personally reviewed the images/study and I agree with the findings as stated by Jackson Cristina MD. This study was interpreted at [place], [place]. MACRO: None Signed by: Clint Woods 09/25/2023 3:47 PM Dictation workstation: [id number] Normal [facility] MR Pelvis WO and W contrast Jack 09-21-2023 Radiology Study observation (narrative) [facility] Work Phone: Magnesiumon 09-21-2023 Magnesium [Mass/Vol] 2.05 mg/dL 1.60 - 2.40 mg/dL [facility] Magnesium [Mass/Vol] 2.05 mg/dL Normal 1.60-2.40 [facility] Comment on above: Performed By: #### 2 341-6 #### BEVERLEY Poe ([id number]) [facility] ([facility]) [address] [place] [address] 288[address] Magnesium [Mass/Vol]on 09-21 Interpretation and review of laboratory results Normal [facility] No Panel Informationon 09-21 [facility] Renal function 2000 panelon 09-21-2023 Albumin BCP dye [Mass/Vol] 2.7 g/dL Low 3.4 - 5.0 g/dL [facility] Anion gap [Moles/Vol] 8 mmol/L Low 10 - 2 0 mmol/L [facility] Calcium [Mass/Vol] 8.3 mg/dL Low 8.6 - 10. 6 mg/dL [facility] Chloride [Moles/Vol] 101 mmol/L 98 - 10 7 mmol/L [facility] CO2 [Moles/Vol] 41 mmol/L Critically high 21 - 32 mmol/L [facility] Creatinine [Mass/Vol] 0.45 mg/dL Low 0.50 - 1.05 mg/dL [facility] GFR/1.73 sq M.predicted MDRD (S/P/Bld) [Vol rate/Area] - PINF [facility] Glucose [Mass/Vol] 140 mg/dL High 74 - 99 mg/dL [facility] Interpretation and review of laboratory results Abnormal [facility] Phosphate [Mass/Vol] 3.4 mg/dL 2.5 - 4 .9 mg/dL [facility] Potassium [Moles/Vol] 3.8 mmol/L 3.5 - 5.3 mmol/L [facility] Sodium [Moles/Vol] 146 mmol/L High 136 - 145 mmol/L [facility] Urea nitrogen [Mass/Vol] 12 mg/dL 6 - 23 mg/dL [facility] Albumin BCP dye [Mass/Vol] 2.7 g/dL Low 3.4-5.0 [facility] Comment on above: Performed By: #### 3 4532-2 #### BEVERLEY Poe ([id number]) [facility] ([facility]) [address] [place] [address] Anion gap [Moles/Vol] 8 mmol/L Low 10-20 [facility] Comment on above: Performed By: #### 3 4532-2 #### BEVERLEY Poe ([id number]) [facility] ([facility]) [address] [place] [address] Calcium [Mass/Vol] 8.3 mg/dL Low 8.6-10.6 [facility] Comment on above: Performed By: #### 3 4532-2 #### BEVERLEY Poe ([id number]) [facility] ([facility]) [address] [place] [address] Chloride [Moles/Vol] 101 mmol/L Normal 98-107 [facility] Comment on above: Performed By: #### 3 4532-2 #### BEVERLEY Poe ([id number]) [facility] ([facility]) [address] [place] [address] CO2 [Moles/Vol] 41 mmol/L Critically high 21-32 [facility] Comment on above: Performed By: #### 3 4532-2 #### BEVERLEY Poe ([id number]) [facility] ([facility]) [address] [place] [address] Creatinine [Mass/Vol] 0.45 mg/dL Low 0.50-1.05 [facility] Comment on above: Performed By: #### 3 4532-2 #### BEVERLEY Poe ([id number]) [facility] ([facility]) [address] [place] [address] GFR/1.73 sq M.predicted MDRD (S/P/Bld) [Vol rate/Area] mL/min/{1.73_m2} Normal >60 [facility] Comment on above: Result Comment: Calc ulations of estimated GFR are performed using the 2020 CKD-EPI Study Refit equation without the race variable for the IDMS-Traceable creatinine methods. https://jasn.asnjournals.org/content/early//ASN.87426 43013 Performed By: #### 3 4532-2 #### BEVERLEY Poe ([id number]) [facility] ([facility]) [address] [place] [address] Glucose [Mass/Vol] 140 mg/dL High 74-99 [facility] Comment on above: Performed By: #### 3 4532-2 #### BEVERLEY Poe ([id number]) [facility] ([facility]) [address] [place] [address] Phosphate [Mass/Vol] 3.4 mg/dL Normal 2.5-4.9 [facility] Comment on above: Result Comment: The performance characteristics of phosphorus testing in heparinized plasma have been validated by the individual laboratory site where testing is performed. Testing on heparinized plasma is not approved by the FDA; however, such approval is not necessary. Performed By: #### 3 4532-2 #### BEVERLEY Poe ([id number]) [facility] ([facility]) [address] [place] [address] Potassium [Moles/Vol] 3.8 mmol/L Normal 3.5-5.3 [facility] Comment on above: Performed By: #### 3 4532-2 #### BEVERLEY Poe ([id number]) [facility] ([facility]) [address] [place] [address] Sodium [Moles/Vol] 146 mmol/L High 136-145 [facility] Comment on above: Performed By: #### 3 4532-2 #### BEVERLEY Poe ([id number]) [facility] ([facility]) [address] [place] [address] Urea nitrogen [Mass/Vol] 12 mg/dL Normal 6-23 [facility] Comment on above: Performed By: #### 3 4532-2 #### BEVERLEY Poe ([id number]) [facility] ([facility]) [address] [place] [address] Bacteria identifiedon 2022 Bacteria identified Cx Nom (U) Test: Urine culture Specimen Source: Indwelling (Barnes) Catheter Specimen Type: Urine Specimen Date: 09/20/2023 3:34 PM Result Date: 09/22/2023 11:36 AM Result Status: Final result Abnormal: Yes Resulting Lab: [facility] [address] [place] [id number] CULTURE >100,000 Enterococcus faecium (Abnormal) Vancomycin Resistant Enterococcus (VRE) SUSCEPTIBILITY Enterococcus faecium METHOD MICROSCAN ---- ------- AMPICILLIN -- Resistant CIPROFLOXACIN -- Resistant DAPTOMYCIN -- Susceptible-dose dependent LEVOFLOXACIN -- Resistant LINEZOLID -- Susceptible NITROFURANTOIN -- Susceptible PENICILLIN -- Resistant TRIMETHOPRIM/SULFAMETHOXA ZOLE -- Resistant VANCOMYCIN -- Resistant Abnormal [facility] Comment on above: Performed By: #### 3 4532-2 #### BEVERLEY Poe ([id number]) [facility] ([facility]) [address] [place] [id number] CBC panel Auto (Bld)on 09-20 Erythrocyte distribution width (RBC) [Ratio] 14.5 % 11.5 - 14.5 % [facility] Hematocrit (Bld) [Volume fraction] 27.7 % Low 36.0 - 46.0 % [facility] Hemoglobin (Bld) [Mass/Vol] 8.3 g/dL Low 12.0 - 16.0 g/dL [facility] Interpretation and review of laboratory results Abnormal [facility] MCH (RBC) [Entitic mass] 30.6 pg 26.0 - 34.0 pg [facility] MCHC (RBC) [Mass/Vol] 30.0 g/dL Low 32.0 - 36.0 g/dL [facility] MCV (RBC) [Entitic vol] 102 fL High 80 - 100 fL [facility] Nucleated RBC/100 WBC (Bld) [Ratio] 0.0 % [facility] Platelets (Bld) [#/Vol] 92 10*3/uL Low [facility] RBC (Bld) [#/Vol] 2.71 10*6/uL [facility] WBC (Bld) [#/Vol] 4.3 10*3/uL [facility] Erythrocyte distribution width (RBC) [Ratio] 14.5 % Normal 11.5-14.5 [facility] Comment on above: Performed By: #### 6 00-7 #### BEVERLEY Poe ([id number]) [facility] ([facility]) [address] [place] [address] Hematocrit (Bld) [Volume fraction] 27.7 % Low 36.0-46.0 [facility] Comment on above: Performed By: #### 6 00-7 #### BEVERLEY Poe ([id number]) [facility] ([facility]) [address] [place] [address] Hemoglobin (Bld) [Mass/Vol] 8.3 g/dL Low 12.0-16.0 [facility] Comment on above: Performed By: #### 6 00-7 #### BEVERLEY Peo ([id number]) [facility] ([facility]) [address] [place] [address]83 MCH (RBC) [Entitic mass] 30.6 pg Normal 26.0-34.0 [facility] Comment on above: Performed By: #### 6 00-7 #### BEVERLEY Poe ([id number]) [facility] ([facility]) [address] [place] [address] 45633 MCHC (RBC) [Mass/Vol] 30.0 g/dL Low 32.0-36.0 [facility] Comment on above: Performed By: #### 6 00-7 #### BEVERLEY Poe ([id number]) [facility] ([facility]) [address] [place] [address] MCV (RBC) [Entitic vol] 102 fL High 80-100 [facility] Comment on above: Performed By: #### 6 -7 #### BEVERLEY Poe ([id number]) [facility] ([facility]) [address] [place] [address] 37625 Nucleated RBC/100 WBC (Bld) [Ratio] 0.0 /100 WBCs Normal 0.0-0.0 [facility] Comment on above: Performed By: #### 6 -7 #### BEVERLEY Poe ([id number]) [facility] ([facility]) [address] [place] [address] 32314 Platelets (Bld) [#/Vol] 92 x10*3/uL Low 150-450 [facility] Comment on above: Performed By: #### 6 -7 #### BEVERLEY Poe ([id number]) [facility] ([facility]) [address] [place] [address] 38867 RBC (Bld) [#/Vol] 2.71 x10*6/uL Low 4.00-5.20 [facility] Comment on above: Performed By: #### 6 -7 #### BEVERLEY Poe ([id number]) [facility] ([facility]) [address] [place] [address] 75048 WBC (Bld) [#/Vol] 4.3 x10*3/uL Low 4.4-11.3 [facility] Comment on above: Performed By: #### 6 -7 #### BEVERLEY Poe ([id number]) [facility] ([facility]) [address] [place] [address] 36749 Cancer Ag 19-9on 09-20-2023 Cancer Ag 19-9 Qn 6.88 [arb'U]/mL Normal <35.00 [facility] Comment on above: Order Comment: CA 19 -9 testing is performed by chemiluminescent immunoassay using the Cura TV. Values obtained with different analytic methods cannot beused interchangeably.Serum CA 19-9 measurement is indicated for the serial measurement of CA 19-9 to aid in the management of patients diagnosed with cancers of the exocrine pancreas. This assay is not intended for screening or diagnosis of cancer in the general population. The results must not be used as the sole means for clinical diagnosis or patient management decisions.Patients known to be genotypically negative for the Andrea blood group antigens will be unable to produce CA 19-9 antigen, even in malignant tissue. Phenotyping for the presence of the Andrea antigen may be insufficient todetect true Andrea antigen negative individuals.The results must not be used as the sole means for clinical diagnosis or patient management decisions. Performed By: #### 2 341-6 #### BEVERLEY Poe ([id number]) [facility] ([facility]) [address] [place] [address] 22245 Cancer Ag 19-9 Qnon 09-20-20 Interpretation and review of laboratory results Normal [facility] Cancer Antigen 19-9on 2022 Cancer Ag 19-9 Qn 6.88 [arb'U]/mL NINF - 35.00 U/mL [facility] Glucose Test strip manual (B ld) [Mass/Vol]on 09-20-2023 Glucose [Mass/Vol] 210 mg/dL High 74 - 99 mg/dL [facility] Interpretation and review of laboratory results Abnormal [facility] Glucose [Mass/Vol] 210 mg/dL High 74-99 [facility] Comment on above: Performed By: #### 2 341-6 #### BEVERLEY Poe ([id number]) [facility] ([facility]) [address] [place] [address] 88237 Glucose [Mass/Vol] 114 mg/dL High 74 - 99 mg/dL [facility] Interpretation and review of laboratory results Abnormal [facility] Glucose [Mass/Vol] 114 mg/dL High 74-99 [facility] Comment on above: Performed By: #### 2 341-6 #### BEVERLEY Poe ([id number]) [facility] ([facility]) [address] [place] [address] 01201 Glucose [Mass/Vol] 152 mg/dL High 74 - 99 mg/dL [facility] Interpretation and review of laboratory results Abnormal [facility] Glucose [Mass/Vol] 152 mg/dL High 74-99 [facility] Comment on above: Performed By: #### 2 341-6 #### BEVERLEY Poe ([id number]) [facility]) [address] [place] [address] 76236 Glucose [Mass/Vol] 140 mg/dL High 74 - 99 mg/dL [facility] Interpretation and review of laboratory results Abnormal [facility] Glucose [Mass/Vol] 140 mg/dL High 74-99 [facility] Comment on above: Performed By: #### 6 00-7 #### BEVERLEY Poe ([id number]) [facility] ([facility]) [address] [place] [address] 13240 Glucose [Mass/Vol] 125 mg/dL High 74 - 99 mg/dL [facility] Interpretation and review of laboratory results Abnormal [facility] Glucose [Mass/Vol] 125 mg/dL High 74-99 [facility] Comment on above: Performed By: #### 6 00-7 #### BEVERLEY Poe ([id number]) [facility]) [address] [place] [address] 92213 Glucose [Mass/Vol] 111 mg/dL High 74 - 99 mg/dL [facility] Glucose [Mass/Vol] 213 mg/dL High 74 - 99 mg/dL [facility] Interpretation and review of laboratory results Abnormal [facility] Glucose [Mass/Vol] 109 mg/dL High 74 - 99 mg/dL [facility] Interpretation and review of laboratory results Abnormal [facility] Glucose [Mass/Vol] 109 mg/dL High 74-99 [facility] Comment on above: Performed By: #### 6 00-7 #### BEVERLEY Poe ([id number]) [facility] ([facility]) [address] [place] [address] 40464 HCV Ab Ql (S)on 09-20-2023 Interpretation and review of laboratory results Normal [facility] HIV 1+2 Ab+HIV1 p24 Agon HIV 1+2 Ab+HIV1 p24 Ag IA Ql Non-Reactive Normal Nonreactive [facility] Comment on above: Order Comment: HIV A g/Ab screen is performed using the Siemens Guarnicllstreamit HIV Ag/Ab Combo assay which detects the presence of HIV p24 antigen as well as antibodies to HIV-1 (Group M and O) and HIV-2.No laboratory evidence of HIV infection. If acute HIV infection is suspected, consider testing for HIV RNA by PCR (viral load). Performed By: #### 6 00-7 #### BEVERLEY Poe ([id number]) [facility] ([facility]) [address] [place] [address] 17339 HIV 1+2 Ab+HIV1 p24 Ag IA Ql on 09-20-2023 Interpretation and review of laboratory results Normal [facility] HIV 1/2 Antigen/Antibody Scr een with Reflex to Confirmationon 09-20-2023 HIV 1+2 Ab+HIV1 p24 Ag IA Ql Non-Reactive Nonreactive [facility] Hepatitis C Antibodyon 09-20 HCV Ab Ql (S) Non-Reactive Nonreactive [facility] Hepatitis C virus Abon 09-20 HCV Ab Ql (S) Non-Reactive Normal Nonreactive [facility] Comment on above: Result Comment: Resu lts from patients taking biotin supplements or receiving high-dose biotin therapy should be interpreted with caution due to possible interference with this test. Providers may contact their local laboratory for further information. Performed By: #### 6 00-7 #### BEVERLEY Poe ([id number]) [facility] ([facility]) [address] [place] [address] 07059 Magnesiumon 09-20-2023 Magnesium [Mass/Vol] 2.15 mg/dL 1.60 - 2.40 mg/dL [facility] Magnesium [Mass/Vol] 2.15 mg/dL Normal 1.60-2.40 [facility] Comment on above: Performed By: #### 6 00-7 #### BEVERLEY Poe ([id number]) [facility] ([facility]) [address] [place] [address] 02206 Magnesium [Mass/Vol]on 09-20 Interpretation and review of laboratory results Normal [facility] No Panel Informationon 09-20 [facility] Work Phone: No Panel InformationOrdered By: Steven Chacon on 09-20-2023 [facility] Work Phone: Renal function 2000 panelon 09-20-2023 Albumin BCP dye [Mass/Vol] 2.9 g/dL Low 3.4 - 5.0 g/dL [facility] Anion gap [Moles/Vol] 9 mmol/L Low 10 - 2 0 mmol/L [facility] Calcium [Mass/Vol] 8.7 mg/dL 8.6 - 10. 6 mg/dL [facility] Chloride [Moles/Vol] 99 mmol/L 98 - 10 7 mmol/L [facility] CO2 [Moles/Vol] 40 mmol/L Critically high 21 - 32 mmol/L [facility] Creatinine [Mass/Vol] 0.51 mg/dL 0.50 - 1.05 mg/dL [facility] GFR/1.73 sq M.predicted MDRD (S/P/Bld) [Vol rate/Area] - PINF [facility] Glucose [Mass/Vol] 117 mg/dL High 74 - 99 mg/dL [facility] Interpretation and review of laboratory results Abnormal [facility] Phosphate [Mass/Vol] 3.0 mg/dL 2.5 - 4 .9 mg/dL [facility] Potassium [Moles/Vol] 3.9 mmol/L 3.5 - 5.3 mmol/L [facility] Sodium [Moles/Vol] 144 mmol/L 136 - 145 mmol/L [facility] Urea nitrogen [Mass/Vol] 9 mg/dL 6 - 23 mg/dL [facility] Albumin BCP dye [Mass/Vol] 2.9 g/dL Low 3.4-5.0 [facility] Comment on above: Performed By: #### 6 -7 #### BEVERLEY DODD L ([id number]) [facility] ([facility]) [id number] [place] [address] 93259 Anion gap [Moles/Vol] 9 mmol/L Low 10-20 [facility] Comment on above: Performed By: #### 6 -7 #### BEVERLEY DODD L ([id number]) [facility] ([facility]) [id number] [place] [address] 72282 Calcium [Mass/Vol] 8.7 mg/dL Normal 8.6-10.6 [facility] Comment on above: Performed By: #### 6 -7 #### BEVERLEY DODD L ([id number]) [facility] ([facility]) [address] [place] [address] 33174 Chloride [Moles/Vol] 99 mmol/L Normal 98-107 [facility] Comment on above: Performed By: #### 6 -7 #### BEVERLEY VORAMOTZER L ([id number]) [facility] ([facility]) [address] [place] [address] 34181 CO2 [Moles/Vol] 40 mmol/L Critically high 21-32 [facility] Comment on above: Performed By: #### 6 -7 #### BEVERLEY CARSONER L ([id number]) [facility] ([facility]) [address] [place] [address] 54016 Creatinine [Mass/Vol] 0.51 mg/dL Normal 0.50-1.05 [facility] Comment on above: Performed By: #### 6 -7 #### BEVERLEY VORAMOTZER L ([id number]) [facility] ([facility]) [address] [place] [address] 72799 GFR/1.73 sq M.predicted MDRD (S/P/Bld) [Vol rate/Area] mL/min/{1.73_m2} Normal >60 [facility] Comment on above: Result Comment: Calc ulations of estimated GFR are performed using the 2020 CKD-EPI Study Refit equation without the race variable for the IDMS-Traceable creatinine methods. https://jasn.asnjournals.org/content//ASN.19464 22642 Performed By: #### 6 00-7 #### BEVERLEY Poe ([id number]) [facility] ([facility]) [address] [place] [address] Glucose [Mass/Vol] 117 mg/dL High 74-99 [facility] Comment on above: Performed By: #### 6 00-7 #### BEVERLEY Poe ([id number]) [facility] ([facility]) [id number] [place] [address] 42966 Phosphate [Mass/Vol] 3.0 mg/dL Normal 2.5-4.9 [facility] Comment on above: Result Comment: The performance characteristics of phosphorus testing in heparinized plasma have been validated by the individual laboratory site where testing is performed. Testing on heparinized plasma is not approved by the FDA; however, such approval is not necessary. Performed By: #### 6 00-7 #### BEVERLEY Poe ([id number]) [facility] ([facility]) [address] [place] [address] Potassium [Moles/Vol] 3.9 mmol/L Normal 3.5-5.3 [facility] Comment on above: Performed By: #### 6 -7 #### BEVERLEY Poe ([id number]) [facility] ([facility]) [address] [place] [address] Sodium [Moles/Vol] 144 mmol/L Normal 136-145 [facility] Comment on above: Performed By: #### 6 00-7 #### BEVERLEY Poe ([id number]) [facility] ([facility]) [address] [place] [address] 28714 Urea nitrogen [Mass/Vol] 9 mg/dL Normal 6-23 [facility] Comment on above: Performed By: #### 6 00-7 #### BEVERLEY Poe ([id number]) [facility] ([facility]) [address] [place] [address] TRANSTHORACIC ECHO (TTE) COM PLETEon 09-20-2023 TRANSTHORACIC ECHO (TTE) COMPLETE [facility], [address] [place], [place] [id number] and TRANSTHORACIC ECHOCARDIOGRAM REPORT Patient Name: POLI RAMIREZ Reading Physician: [id number] Kandi Roberts MD Study Date: 09/20/2023 Ordering Provider: [id number] VARSHA SOTELO MRN/PID: [id number] Fellow: Nurse: Mare Higgins Date of /Age: 12 1950 Recruitment Director: Muna Clinton RDCS years Gender: F Additional Staff: Height: 165.10 cm Admit Date: 09/15/2023 Weight: 74.84 kg Admission Status: Inpatient - Routine BSA: 1.82 m2 Department Location: [facility] Non Invasive Blood Pressure: 126 /75 mmHg Study Type: TRANSTHORACIC ECHO (TTE) COMPLETE Diagnosis/ICD: Encounter for preprocedural cardiovascular examination-Z01.810 CPT Code: Echo Complete w Full Doppler-05189 Patient History: Pertinent History: Breast cancer, HTN, COPD, DM2, anemia. Study Detail: The following Echo studies were performed: 2D, M-Mode, Doppler and color flow. Technically challenging study due to patient lying in supine position. Definity used as a contrast agent for endocardial border definition. Total contrast used for this procedure was 2 mL via IV push. PHYSICIAN INTERPRETATION: Left Ventricle: The left ventricular systolic function is severely decreased, with an estimated ejection fraction of 15-20%. There is global hypokinesis of the left ventricle with minor regional variations. The left ventricular cavity size is mildly dilated. Spectral Doppler shows an impaired relaxation pattern of left ventricular diastolic filling. Echocontrast was utilized and excluded LV apical thrombus. Left Atrium: The left atrium is mildly dilated. Right Ventricle: The right ventricle is normal in size. There is normal right ventricular global systolic function. Right Atrium: The right atrium was not well visualized. Aortic Valve: The aortic valve is trileaflet. There is mild aortic valve cusp calcification. There is no evidence of aortic valve regurgitation. The peak instantaneous gradient of the aortic valve is 15.7 mmHg. The mean gradient of the aortic valve is 9.0 mmHg. Mitral Valve: The mitral valve is normal in structure. There is mild to moderate mitral annular calcification. There is trace mitral valve regurgitation. Tricuspid Valve: The tricuspid valve is structurally normal. There is trace tricuspid regurgitation. The right ventricular systolic pressure is unable to be estimated. Pulmonic Valve: The pulmonic valve is structurally normal. There is physiologic pulmonic valve regurgitation. Pericardium: There is a trivial pericardial effusion. Aorta: The aortic root is normal. The aortic root is at the upper limits of normal size. Systemic Veins: The inferior vena cava appears to be of normal size. There is IVC inspiratory collapse greater than 50%. In comparison to the previous echocardiogram(s): There are no prior studies on this patient for comparison purposes. No prior echocardiogram available for comparison. CONCLUSIONS: 1. Left ventricular systolic function is severely decreased with a 15-20% estimated ejection fraction. 2. Echocontrast was utilized and excluded LV apical thrombus. 3. Spectral Doppler shows an impaired relaxation pattern of left ventricular diastolic filling. 4. Primary service notified of results at the time of reporting. 5. No prior echocardiogram available for comparison. 6. There is global hypokinesis of the left ventricle with minor regional variations. QUANTITATIVE DATA SUMMARY: 2D MEASUREMENTS: Normal Ranges: Ao Root d: 3.50 cm (2.0-3.7cm) LAs: 4.00 cm (2.7-4.0cm) IVSd: 1.00 cm (0.6-1.1cm) LVPWd: 1.10 cm (0.6-1.1cm) LVIDd: 5.70 cm (3.9-5.9cm) LVIDs: 5.00 cm LV Mass Index: 132.4 g/m2 LV % FS 12.3 % LA VOLUME: Normal Ranges: LA Vol A4C: 65.4 ml (22+/-6mL/m2) LA Vol A2C: 67.9 ml LA Vol BP: 67.3 ml LA Vol Index A4C: 35.9ml/m2 LA Vol Index A2C: 37.3 ml/m2 LA Vol Index BP: 36.9 ml/m2 LA Area A4C: 20.5 cm2 LA Area A2C: 21.1 cm2 LA Major Stanley A4C: 5.5 cm LA Major Stanley A2C: 5.6 cm AORTA MEASUREMENTS: Normal Ranges: Ao Sinus, d: 3.60 cm (2.1-3.5cm) Asc Ao, d: 3.40 cm (2.1-3.4cm) LV SYSTOLIC FUNCTION BY 2D PLANIMETRY (MOD): Normal Ranges: EF-A4C View: 19.0 % (>=55%) LV DIASTOLIC FUNCTION: Normal Ranges: MV Peak E: 1.01 m/s (0.7-1.2 m/s) MV Peak A: 1.65 m/s (0.42-0.7 m/s) E/A Ratio: 0.61 (1.0-2.2) MV e' 0.06 m/s (>8.0) MV lateral e' 0.06 m/s E/e' Ratio: 16.03 (<8.0) MV DT: 66 msec (150-240 msec) MITRAL VALVE: Normal Ranges: MV DT: 66 msec (150-240msec) AORTIC VALVE: Normal Ranges: AoV Vmax: 1.98 m/s (<=1.7m/s) AoV Peak P.7 mmHg (<20mmHg) AoV Mean P.0 mmHg (1.7-11.5mmHg) LVOT Max Abiodun: 1.41 m/s (<=1.1m/s) AoV VTI: 35.40 cm (18-25cm) LVOT VTI: 28.00 cm LVOT Diameter: 1.80 cm (1.8-2.4cm) AoV Area, VTI: 2.01 cm2 (2.5-5.5cm2) AoV Area,Vmax: 1.81 cm2 (2.5-4.5cm2) Ao (more content not included)... Normal [facility] US Heart TransthoracicOrdere d By: Kandi Roberts on 09-20-2023 Aortic Valve Area by Continuity of Peak Velocity 1.81 [facility] Work Phone: Aortic Valve Area by Continuity of VTI 2.01 [facility] Work Phone: AV mn grad 9.0 [facility] Work Phone: AV pk grad 15.7 [facility] Work Phone: [phone] AV pk abiodun 1.98 [facility] Work Phone: [phone] LA vol index A/L 36.9 [facility] Work Phone: [phone] LV A4C EF 19.0 [facility] Work Phone: [phone] LVIDd 5.70 [facility] Work Phone: [phone] LVOT diam 1.80 [facility] Work Phone: [phone] MV avg E/e' ratio 16.03 [facility] Work Phone: [phone] MV E/A ratio 0.61 [facility] Work Phone: [phone] RV free wall pk S' 14.30 [facility] Work Phone: [phone] Tricuspid annular plane systolic excursion 2.0 [facility] Work Phone: [phone] [facility] Work Phone: US Heart Transthoracicon SYNGO [facility] Work Phone: Bacteria identified Cx Nom ( Bld)on 09-19-2023 Interpretation and review of laboratory results Normal [facility] CBC panel Auto (Bld)on 09-19 Erythrocyte distribution width (RBC) [Ratio] 14.1 % 11.5 - 14.5 % [facility] Hematocrit (Bld) [Volume fraction] 28.2 % Low 36.0 - 46.0 % [facility] Hemoglobin (Bld) [Mass/Vol] 8.4 g/dL Low 12.0 - 16.0 g/dL [facility] Interpretation and review of laboratory results Abnormal [facility] MCH (RBC) [Entitic mass] 30.9 pg 26.0 - 34.0 pg [facility] MCHC (RBC) [Mass/Vol] 29.8 g/dL Low 32.0 - 36.0 g/dL [facility] MCV (RBC) [Entitic vol] 104 fL High 80 - 100 fL [facility] Nucleated RBC/100 WBC (Bld) [Ratio] 0.0 % [facility] Platelets (Bld) [#/Vol] 90 10*3/uL Low [facility] RBC (Bld) [#/Vol] 2.72 10*6/uL [facility] WBC (Bld) [#/Vol] 4.2 10*3/uL [facility] Erythrocyte distribution width (RBC) [Ratio] 14.1 % Normal 11.5-14.5 [facility] Comment on above: Performed By: #### 5 7021-8 #### BEVERLEY Poe ([id number]) [facility] ([facility]) [address] [place] [address] 95956 Hematocrit (Bld) [Volume fraction] 28.2 % Low 36.0-46.0 [facility] Comment on above: Performed By: #### 5 7021-8 #### BEVERLEY Poe ([id number]) [facility] ([facility]) [address] [place] [address] 53812 Hemoglobin (Bld) [Mass/Vol] 8.4 g/dL Low 12.0-16.0 [facility] Comment on above: Performed By: #### 5 7021-8 #### BEVERLEY Poe ([id number]) [facility] ([facility]) [address] [place] [address] 31788 MCH (RBC) [Entitic mass] 30.9 pg Normal 26.0-34.0 [facility] Comment on above: Performed By: #### 5 7021-8 #### BEVERLEY Poe ([id number]) [facility] ([facility]) [address] [place] [address] 62479 MCHC (RBC) [Mass/Vol] 29.8 g/dL Low 32.0-36.0 [facility] Comment on above: Performed By: #### 5 7021-8 #### BEVERLEY Poe ([id number]) [facility] ([facility]) [address] [place] [address] MCV (RBC) [Entitic vol] 104 fL High 80-100 [facility] Comment on above: Performed By: #### 5 7021-8 #### BEVERLEY Poe ([id number]) [facility] ([facility]) [id number] [place] [address] 34355 Nucleated RBC/100 WBC (Bld) [Ratio] 0.0 /100 WBCs Normal 0.0-0.0 [facility] Comment on above: Performed By: #### 5 7021-8 #### BEVERLEY Poe ([id number]) [facility] ([facility]) [address] [place] [address] 13926 Platelets (Bld) [#/Vol] 90 x10*3/uL Low 150-450 [facility] Comment on above: Performed By: #### 5 7021-8 #### BEVERLEY Poe ([id number]) [facility] ([facility]) [address] [place] [address] 85694 RBC (Bld) [#/Vol] 2.72 x10*6/uL Low 4.00-5.20 [facility] Comment on above: Performed By: #### 5 7021-8 #### BEVERLEY Poe ([id number]) [facility] ([facility]) [address] [place] [address] 13410 WBC (Bld) [#/Vol] 4.2 x10*3/uL Low 4.4-11.3 [facility] Comment on above: Performed By: #### 5 7021-8 #### BEVERLEY Poe ([id number]) [facility] ([facility]) [address] [place] [address] HEAD WO IV CONTRASTon CT HEAD WO IV CONTRAST Interpreted By: Susy Bright, STUDY: CT HEAD WO IV CONTRAST; 09/19/2023 3:43 pm INDICATION: Signs/Symptoms:R/o subdural hematoma, thrombocytopenia workup (fall several weeks ago). COMPARISON: None. ACCESSION NUMBER(S): [id number] ORDERING CLINICIAN: KANG JULIAN TECHNIQUE: Axial CT images of the head were obtained without intravenous contrast administration. FINDINGS: There is mild brain parenchymal volume loss. There are patchy and confluent nonspecific white matter changes within the cerebral hemispheres bilaterally as well as additional scattered nonspecific hypodensities within the subinsular regions, basal ganglia, internal capsules, and thalami bilaterally as well as suspected overlying the brainstem suggesting incidental prominent perivascular spaces and/or scattered lacunar infarctions. No hyperdense acute intracranial hemorrhage is noted. There is no midline shift. The visualized paranasal sinuses and mastoid air cells are clear. No acute fracture is noted. IMPRESSION: There is mild brain parenchymal volume loss. There are patchy and confluent nonspecific white matter changes within the cerebral hemispheres bilaterally as well as additional scattered nonspecific hypodensities within the subinsular regions, basal ganglia, internal capsules, and thalami bilaterally as well as suspected overlying the brainstem suggesting incidental prominent perivascular spaces and/or scattered lacunar infarctions. MACRO: None. Signed by: Susy Canales 09/19/2023 4:06 PM Dictation workstation: [id number] Normal [facility] CT Head WO contraston 2022 [facility] MM[facility]AL [facility] MM[facility] Work Phone: Radiology Study observation (narrative) [facility] Work Phone: CT Head WO contrastOrdered B y: Susy Canales on 09-19-2023 [facility] Work Phone: ECG 12-LEADon 09-19-2023 ECG 12-LEAD Ventricular Rate 104 Atrial Rate 104 P-R Interval 150 QRS Duration 136 Q-T Interval 352 QTC Calculation(Bazett) 462 P Stanley 67 R Stanley -54 T Stanley 70 QRS Count 17 Q Onset 212 P Onset 137 P Offset 193 T Offset 388 QTC Fredericia 422 Diagnosis Sinus tachycardia with occasional Premature ventricular complexes Left bundle branch block Abnormal ECG When compared with ECG of 19-SEP-2023 12:28, (unconfirmed) Premature ventricular complexes are now Present Confirmed by Simon Piedra ([id number]) on 09/27/2023 12:27:49 PM Normal [facility] ECG 12-LEAD Ventricular Rate 96 Atrial Rate 96 P-R Interval 156 QRS Duration 136 Q-T Interval 380 QTC Calculation(Bazett) 480 P Stanley 61 R Stanley -49 T Stanley 77 QRS Count 16 Q Onset 211 P Onset 133 P Offset 197 T Offset 401 QTC Fredericia 444 Diagnosis Sinus rhythm with occasional Premature ventricular complexes Left axis deviation Left bundle branch block Abnormal ECG No previous ECGs available Confirmed by Harrison Piedra ([id number]) on 09/26/2023 9:00:49 AM Normal [facility] Gas panel (BldA)Ordered By: Allyssa Bach on 09-19-2023 Base excess Calc (Bld) [Moles/Vol] 14.9 mmol/L High -2.0 - 3.0 mmol/L [facility] CO2 (Bld) [Partial pressure] 61 mm[Hg] High [facility] HCO3 (Bld) [Moles/Vol] 41.4 mmol/L High 22.0 - 26.0 mmol/L [facility] Inhaled oxygen concentration 28 % [facility] Interpretation and review of laboratory results Abnormal [facility] Oxygen (Bld) [Partial pressure] 121 mm[Hg] High [facility] Oxyhemoglobin (BldA) [Mass fraction] 96.7 % 94.0 - 98.0 % [facility] pH (Bld) 7.44 [pH] High 7.38 - 7.42 pH [facility] Gas panel (BldA)on Base excess Calc (Bld) [Moles/Vol] 14.9 mmol/L High -2.0-3.0 [facility] Comment on above: Order Comment: While on baseline/ home level of oxygen Performed By: #### 6 00-7 #### BEVERLEY Poe ([id number]) [facility] ([facility]) [address] [place] [address] CO2 (Bld) [Partial pressure] 61 mm Hg High 38-42 [facility] Comment on above: Order Comment: While on baseline/ home level of oxygen Performed By: #### 6 00-7 #### BEVERLEY Poe ([id number]) [facility] ([facility]) [address] [place] [address] 50783 HCO3 (Bld) [Moles/Vol] 41.4 mmol/L High 22.0-26.0 [facility] Comment on above: Order Comment: While on baseline/ home level of oxygen Performed By: #### 6 00-7 #### BEVERLEY Poe ([id number]) [facility] ([facility]) [address] [place] [address] 98701 Inhaled oxygen concentration 28 % Normal [facility] Comment on above: Order Comment: While on baseline/ home level of oxygen Performed By: #### 6 00-7 #### BEVERLEY DODD L ([id number]) [facility] ([facility]) [address] [place] [address] 64159 Oxygen (Bld) [Partial pressure] 121 mm Hg High 85-95 [facility] Comment on above: Order Comment: While on baseline/ home level of oxygen Performed By: #### 6 -7 #### BEVERLEY Poe ([id number]) [facility] ([facility]) [address] [place] [address] 68091 Oxyhemoglobin (BldA) [Mass fraction] 96.7 % Normal 94.0-98.0 [facility] Comment on above: Order Comment: While on baseline/ home level of oxygen Performed By: #### 6 -7 #### BEVERLEY Poe ([id number]) [facility] ([facility]) [address] [place] [address] 35473 pH (Bld) 7.44 [pH] High 7.38-7.42 [facility] Comment on above: Order Comment: While on baseline/ home level of oxygen Performed By: #### 6 00-7 #### BEVERLEY DODD L ([id number]) [facility] ([facility]) [address] [place] [address] 15482 Glucose Test strip manual (B ld) [Mass/Vol]on 09-19-2023 Glucose [Mass/Vol] 213 mg/dL High 74-99 [facility] Comment on above: Performed By: #### 6 00-7 #### BEVERLEY Poe ([id number]) [facility] ([facility]) [address] [place] [address] 24085 Glucose [Mass/Vol] 158 mg/dL High 74 - 99 mg/dL [facility] Interpretation and review of laboratory results Abnormal [facility] Glucose [Mass/Vol] 158 mg/dL High 74-99 [facility] Comment on above: Performed By: #### 6 00-7 #### BEVERLEY Poe ([id number]) [facility] ([facility]) [address] [place] [address] 93656 Glucose [Mass/Vol] 98 mg/dL 74 - 99 mg/dL [facility] Interpretation and review of laboratory results Normal [facility] Glucose [Mass/Vol] 98 mg/dL Normal 74-99 [facility] Comment on above: Performed By: #### 6 00-7 #### BEVERLEY Poe ([id number]) [facility] ([facility]) [address] [place] [address] 91288 Glucose [Mass/Vol] 111 mg/dL High 74-99 [facility] Comment on above: Performed By: #### 6 00-7 #### BEVERLEY Poe ([id number]) [facility] ([facility]) [address] [place] [address] 31584 Glucose [Mass/Vol] 164 mg/dL High 74 - 99 mg/dL [facility] Interpretation and review of laboratory results Abnormal [facility] Glucose [Mass/Vol] 164 mg/dL High 74-99 [facility] Comment on above: Performed By: #### 5 7021-8 #### BEVERLEY Poe ([id number]) [facility] ([facility]) [address] [place] [address] 24788 Glucose [Mass/Vol] 124 mg/dL High 74 - 99 mg/dL [facility] Interpretation and review of laboratory results Abnormal [facility] Glucose [Mass/Vol] 124 mg/dL High 74-99 [facility] Comment on above: Performed By: #### 5 7021-8 #### BEVERLEY Poe ([id number]) [facility] ([facility]) [address] [place] [address] 68663 HBV surface Ag IA Qlon 09-19 Interpretation and review of laboratory results Normal [facility] Hepatitis B Surface Antigeno n 09-19-2023 HBV surface Ag IA Ql Non-Reactive Nonreactive U [facility] - Microbiology an d Antimicrobial susceptibilityon 09-19-2023 Bacteria identified Cx Nom (Bld) No growth at 4 days - FINAL REPORT [facility] Magnesiumon 09-19-2023 Magnesium [Mass/Vol] 2.22 mg/dL 1.60 - 2.40 mg/dL [facility] Magnesium [Mass/Vol] 2.22 mg/dL Normal 1.60-2.40 [facility] Comment on above: Performed By: #### 6 00-7 #### BEVERLEY Poe ([id number]) [facility] ([facility]) [address] [place] [address] 99803 Magnesium [Mass/Vol]on 09-19 Interpretation and review of laboratory results Normal [facility] Natriuretic peptide B [Mass/ Vol]on 09-19-2023 Interpretation and review of laboratory results Abnormal [facility] Natriuretic peptide B (Bld) [Mass/Vol] 154 pg/mL High 0 - 99 pg/mL [facility] Natriuretic peptide B (Bld) [Mass/Vol] 154 pg/mL High 0-99 [facility] Comment on above: Order Comment: <100 pg/mL - Heart failure [id number] pg/mL - Intermediate probability of acute heart failure exacerbation. Correlate with clinical context and patient history. >=300 pg/mL - Heart Failure likely. Correlate with clinical context and patient history.Biotin interference may cause falsely decreased results. Patients taking a Biotin dose of up to 5 mg/day should refrain from taking Biotin for 24 hours before sample collection. Providers may contact their local laboratory for further information. Performed By: #### 6 00-7 #### BEVERLEY Poe ([id number]) [facility] ([facility]) [address] [place] [address] 50935 No Panel Informationon 09-19 Radiology Study observation (narrative) [facility] Work Phone: [facility] PT and aPTT panel Coag (PPP) on 09-19-2023 aPTT Coag (PPP) [Time] 32 s Un [facility] INR Coag (PPP) [Relative time] 1.1 {INR} 0.9 - 1.1 [facility] Interpretation and review of laboratory results Normal [facility] PT Coag (PPP) [Time] 12.3 s [facility] aPTT Coag (PPP) [Time] 32 s Normal 27-38 Un [facility] Comment on above: Order Comment: The A PTT is no longer used for monitoring Unfractionated Heparin Therapy. For monitoring Heparin Therapy, use the Heparin Assay. Performed By: #### 5 7021-8 #### BEVERLEY Poe ([id number]) [facility] ([facility]) [address] [place], [place] [id number] INR Coag (PPP) [Relative time] 1.1 Normal 0.9-1.1 [facility] Comment on above: Order Comment: The A PTT is no longer used for monitoring Unfractionated Heparin Therapy. For monitoring Heparin Therapy, use the Heparin Assay. Performed By: #### 5 7021-8 #### BEVERLEY Poe ([id number]) [facility] ([facility]) [address] [place], [place] [id number] PT Coag (PPP) [Time] 12.3 s Normal 9.8-12.8 [facility] Comment on above: Order Comment: The A PTT is no longer used for monitoring Unfractionated Heparin Therapy. For monitoring Heparin Therapy, use the Heparin Assay. Performed By: #### 5 7021-8 #### BEVERLEY Poe ([id number]) [facility] ([facility]) [address] [place] [address] 04288 Renal function 2000 panelon 09-19-2023 Albumin BCP dye [Mass/Vol] 2.8 g/dL Low 3.4 - 5.0 g/dL [facility] Anion gap [Moles/Vol] 14 mmol/L 10 - 2 0 mmol/L [facility] Calcium [Mass/Vol] 8.2 mg/dL Low 8.6 - 10. 6 mg/dL [facility] Chloride [Moles/Vol] 101 mmol/L 98 - 10 7 mmol/L [facility] CO2 [Moles/Vol] 35 mmol/L High 21 - 32 mmol/L [facility] Creatinine [Mass/Vol] 0.40 mg/dL Low 0.50 - 1.05 mg/dL [facility] GFR/1.73 sq M.predicted MDRD (S/P/Bld) [Vol rate/Area] - PINF [facility] Glucose [Mass/Vol] 122 mg/dL High 74 - 99 mg/dL [facility] Interpretation and review of laboratory results Abnormal [facility] Phosphate [Mass/Vol] 2.9 mg/dL 2.5 - 4 .9 mg/dL [facility] Potassium [Moles/Vol] 3.9 mmol/L 3.5 - 5.3 mmol/L [facility] Sodium [Moles/Vol] 146 mmol/L High 136 - 145 mmol/L [facility] Urea nitrogen [Mass/Vol] 9 mg/dL 6 - 23 mg/dL [facility] Albumin BCP dye [Mass/Vol] 2.8 g/dL Low 3.4-5.0 [facility] Comment on above: Performed By: #### 6 00-7 #### BEVERLEY Poe ([id number]) [facility] ([facility]) [address] [place] [address] 86406 Anion gap [Moles/Vol] 14 mmol/L Normal 10-20 [facility] Comment on above: Performed By: #### 6 00-7 #### BEVERLEY Poe ([id number]) [facility] ([facility]) [address] [place] [address] 11522 Calcium [Mass/Vol] 8.2 mg/dL Low 8.6-10.6 [facility] Comment on above: Performed By: #### 6 00-7 #### BEVERLEY DODD L ([id number]) [facility] ([facility]) [address] [place] [address] Chloride [Moles/Vol] 101 mmol/L Normal 98-107 [facility] Comment on above: Performed By: #### 6 00-7 #### BEVERLEY VORAMOPRIYAER L ([id number]) [facility] ([facility]) [address] [place] [address] CO2 [Moles/Vol] 35 mmol/L High 21-32 [facility] Comment on above: Performed By: #### 6 00-7 #### BEVERLEY DODD L ([id number]) [facility] ([facility]) [address] [place] [address] 15025 Creatinine [Mass/Vol] 0.40 mg/dL Low 0.50-1.05 [facility] Comment on above: Performed By: #### 6 00-7 #### BEVERLEY DODD L ([id number]) [facility] ([facility]) [address] [place] [address] 71072 GFR/1.73 sq M.predicted MDRD (S/P/Bld) [Vol rate/Area] mL/min/{1.73_m2} Normal >60 [facility] Comment on above: Result Comment: Calc ulations of estimated GFR are performed using the 2020 CKD-EPI Study Refit equation without the race variable for the IDMS-Traceable creatinine methods. https://jasn.asnjournals.org/content/early//ASN.00989 47303 Performed By: #### 6 00-7 #### BEVERLEY DODD L ([id number]) [facility] ([facility]) [address] [place] [address] Glucose [Mass/Vol] 122 mg/dL High 74-99 [facility] Comment on above: Performed By: #### 6 00-7 #### BEVERLEY DODD L ([id number]) [facility] ([facility]) [address] [place] [address] Phosphate [Mass/Vol] 2.9 mg/dL Normal 2.5-4.9 [facility] Comment on above: Result Comment: The performance characteristics of phosphorus testing in heparinized plasma have been validated by the individual laboratory site where testing is performed. Testing on heparinized plasma is not approved by the FDA; however, such approval is not necessary. Performed By: #### 6 00-7 #### BEVERLEY VORAMOTZER L ([id number]) [facility] ([facility]) [address] [place] [address] 79624 Potassium [Moles/Vol] 3.9 mmol/L Normal 3.5-5.3 [facility] Comment on above: Performed By: #### 6 00-7 #### BEVERLEY SCHMOTZER L ([id number]) [facility] ([facility]) [address] [place] [address] 80878 Sodium [Moles/Vol] 146 mmol/L High 136-145 [facility] Comment on above: Performed By: #### 6 00-7 #### BEVERLEY SCHMOTZER L ([id number]) [facility] ([facility]) [address] [place] [address] 84701 Urea nitrogen [Mass/Vol] 9 mg/dL Normal 6-23 [facility] Comment on above: Performed By: #### 6 00-7 #### BEVERLEY SCHMOTZER L ([id number]) [facility] ([facility]) [address] [place] [address] 68302 US ABDOMEN LIMITED LIVERon 1 11-19-2022 US ABDOMEN LIMITED LIVER Interpreted By: Steven Chacon and Ebai Jerky STUDY: US ABDOMEN LIMITED LIVER; [facility] US ABDOMINAL/PELVIC DUPLEX COMPLETE; 09/19/2023 6:30 pm INDICATION: 72 y/o F with Signs/Symptoms:Throbocyto penia workup; Signs/Symptoms:per doctor request. COMPARISON: None. ACCESSION NUMBER(S): [id number]; [id number] ORDERING CLINICIAN: KANG JULIAN TECHNIQUE: Multiple images of the right upper quadrant were obtained. Gates scale, color Doppler and spectral Doppler waveform analysis was performed. This examination was interpreted at [facility]. FINDINGS: The liver measures 22.6 cm and is grossly unremarkable and free of any focal lesions. The liver is echogenic and coarsened echotexture. GALLBLADDER: Surgically absent. BILIARY SYSTEM: No evidence of intra or extrahepatic biliary dilatation is identified; the common bile duct measures 7.4 mm. DOPPLER EVALUATION: HEPATIC ARTERIES: Hepatic artery and its right and left branches RI's are estimated at 0.75, 0.75 and 0.74, respectively. PORTAL VEIN: Portal vein is patent and measures 1.1 cm. There is normal respiratory variation. Portal vein velocities are calculated as follows: main portal vein 35.7 cm/sec, antegrade flow; left portal vein branch 12.3 cm/sec, antegrade flow; right portal vein anterior branch 19.6 cm/sec, antegrade flow; right portal vein posterior branch 26.9 cm/sec, antegrade flow. The splenic vein is also patent. HEPATIC VEIN: The right, middle and left hepatic veins are patent and demonstrate triphasic antegrade flow. IVC appears also patent. PANCREAS: The visualized pancreas is unremarkable in appearance. There is a 1.6 x 1.5 x 2.2 cm anechoic cystic structure adjacent to the distal pancreatitis tail. RIGHT KIDNEY: The right kidney measures 10.7 cm in length. No hydronephrosis or renal calculi are seen. SPLEEN: The spleen measures 13.9 cm and is grossly unremarkable. PERITONEUM AND RETROPERITONEUM: Incidental note is made of a left pleural effusion. IMPRESSION: Unremarkable ultrasound of the abdomen. 1. Hepatomegaly with echogenic and coarse echotexture, correlate with chronic liver disease. 2. There is an incompletely evaluated 1.6 cm anechoic cystic structure adjacent to the pancreatic tail. Differentials include pseudocysts or cystic mass. Recommend further evaluation with MRI/MRCP of the pancreas. 3. Prominent CBD, likely secondary to cholecystectomy. 4. Mild splenomegaly. 5. Unremarkable Doppler ultrasound. I personally reviewed the images/study and I agree with the findings as stated. This study was interpreted at [place], [place]. MACRO: None Signed by: Steven Chacon 09/20/2023 5:44 AM Dictation workstation: [id number] Normal [facility] Comment on above: Order Comment: Pleas e include portal vein flow velocitys [facility] US ABDOMINAL/PELVIC DUP SRINATH COMPLETEon 09-19-2023 [facility] US ABDOMINAL/PELVIC DUPLEX COMPLETE Interpreted By: Steven Chacon and Ebai Jerky STUDY: US ABDOMEN LIMITED LIVER; [facility] US ABDOMINAL/PELVIC DUPLEX COMPLETE; 09/19/2023 6:30 pm INDICATION: 72 y/o F with Signs/Symptoms:Throbocyto penia workup; Signs/Symptoms:per doctor request. COMPARISON: None. ACCESSION NUMBER(S): [id number]; [id number] ORDERING CLINICIAN: KANG JULIAN TECHNIQUE: Multiple images of the right upper quadrant were obtained. Gates scale, color Doppler and spectral Doppler waveform analysis was performed. This examination was interpreted at [facility]. FINDINGS: The liver measures 22.6 cm and is grossly unremarkable and free of any focal lesions. The liver is echogenic and coarsened echotexture. GALLBLADDER: Surgically absent. BILIARY SYSTEM: No evidence of intra or extrahepatic biliary dilatation is identified; the common bile duct measures 7.4 mm. DOPPLER EVALUATION: HEPATIC ARTERIES: Hepatic artery and its right and left branches RI's are estimated at 0.75, 0.75 and 0.74, respectively. PORTAL VEIN: Portal vein is patent and measures 1.1 cm. There is normal respiratory variation. Portal vein velocities are calculated as follows: main portal vein 35.7 cm/sec, antegrade flow; left portal vein branch 12.3 cm/sec, antegrade flow; right portal vein anterior branch 19.6 cm/sec, antegrade flow; right portal vein posterior branch 26.9 cm/sec, antegrade flow. The splenic vein is also patent. HEPATIC VEIN: The right, middle and left hepatic veins are patent and demonstrate triphasic antegrade flow. IVC appears also patent. PANCREAS: The visualized pancreas is unremarkable in appearance. There is a 1.6 x 1.5 x 2.2 cm anechoic cystic structure adjacent to the distal pancreatitis tail. RIGHT KIDNEY: The right kidney measures 10.7 cm in length. No hydronephrosis or renal calculi are seen. SPLEEN: The spleen measures 13.9 cm and is grossly unremarkable. PERITONEUM AND RETROPERITONEUM: Incidental note is made of a left pleural effusion. IMPRESSION: Unremarkable ultrasound of the abdomen. 1. Hepatomegaly with echogenic and coarse echotexture, correlate with chronic liver disease. 2. There is an incompletely evaluated 1.6 cm anechoic cystic structure adjacent to the pancreatic tail. Differentials include pseudocysts or cystic mass. Recommend further evaluation with MRI/MRCP of the pancreas. 3. Prominent CBD, likely secondary to cholecystectomy. 4. Mild splenomegaly. 5. Unremarkable Doppler ultrasound. I personally reviewed the images/study and I agree with the findings as stated. This study was interpreted at [place], [place]. MACRO: None Signed by: Steven Chacon 09/20/2023 5:44 AM Dictation workstation: [id number] Normal [facility] Comment on above: Order Comment: Pleas e include portal vein flow velocitys XR CHEST 1 VIEWon 09-19-2023 XR CHEST 1 VIEW Interpreted By: Delfin Clemens and [place] Lesley STUDY: XR CHEST 1 VIEW; 09/19/2023 8:46 am INDICATION: Signs/Symptoms:copd on oxygen. COMPARISON: Outside hospital CT chest 03/20/2014 ACCESSION NUMBER(S): [id number] ORDERING CLINICIAN: RIMA APPLE FINDINGS: Single AP upright portable radiograph of the chest was provided. CARDIOMEDIASTINAL SILHOUETTE: The cardiomediastinal silhouette is normal in size and configuration. LUNGS: Mildly low lung volumes with bronchovascular crowding. Bandlike atelectasis of the right lower lung with bibasilar subsegmental atelectasis. An ovoid 22 x 18 mm opacity right lower lobe overlies the right 4th rib anteriorly. No sizable effusion or pneumothorax. No focal consolidation. ABDOMEN: No remarkable upper abdominal findings. BONES: No acute osseous abnormalities. Posterior cervical spine fusion is partially visualized. Moderate degenerative changes of the thoracic spine. IMPRESSION: 1. Linear atelectasis within the lung bases greater within the right lower lobe than the left. 2. Ovoid 22 x 18 mm opacity right lower lobe overlying the right 4th rib anteriorly 3. CT examination of the chest is recommended to correlate. I personally reviewed the image(s)/study and resident interpretation as stated by Dr. Veronica Brown MD. I agree with the findings as stated. This study was interpreted at [facility], [place], [place]. MACRO: None Signed by: Delfin Menezes 09/19/2023 9:36 AM Dictation workstation: [id number] Normal [facility] XR Chest Single viewon 09-19 [facility] Work Phone: Radiology Study observation (narrative) [facility] Work Phone: XR Chest Single viewOrdered By: Delfin Menezes on 09-19-2023 [facility] Work Phone: CBC panel Auto (Bld)on 09-18 Erythrocyte distribution width (RBC) [Ratio] 13.8 % 11.5 - 14.5 % [facility] Hematocrit (Bld) [Volume fraction] 26.9 % Low 36.0 - 46.0 % [facility] Hemoglobin (Bld) [Mass/Vol] 8.0 g/dL Low 12.0 - 16.0 g/dL [facility] Interpretation and review of laboratory results Abnormal [facility] MCH (RBC) [Entitic mass] 30.3 pg 26.0 - 34.0 pg [facility] MCHC (RBC) [Mass/Vol] 29.7 g/dL Low 32.0 - 36.0 g/dL [facility] MCV (RBC) [Entitic vol] 102 fL High 80 - 100 fL [facility] Nucleated RBC/100 WBC (Bld) [Ratio] 0.0 % [facility] Platelets (Bld) [#/Vol] 91 10*3/uL Low [facility] RBC (Bld) [#/Vol] 2.64 10*6/uL [facility] WBC (Bld) [#/Vol] 4.2 10*3/uL [facility] Erythrocyte distribution width (RBC) [Ratio] 13.8 % Normal 11.5-14.5 [facility] Comment on above: Performed By: #### 2 4323-8 #### BEVERLEY Poe ([id number]) [facility] ([facility]) [address] [place] [address] Hematocrit (Bld) [Volume fraction] 26.9 % Low 36.0-46.0 [facility] Comment on above: Performed By: #### 2 4323-8 #### BEVERLEY Poe ([id number]) [facility] ([facility]) [address] [place] [address] 46377 Hemoglobin (Bld) [Mass/Vol] 8.0 g/dL Low 12.0-16.0 [facility] Comment on above: Performed By: #### 2 4323-8 #### BEVERLEY Poe ([id number]) [facility] ([facility]) [id number] [place] [address] 16920 MCH (RBC) [Entitic mass] 30.3 pg Normal 26.0-34.0 [facility] Comment on above: Performed By: #### 2 432-8 #### BEVERLEY Poe ([id number]) [facility] ([facility]) [address] [place] [address] 40008 MCHC (RBC) [Mass/Vol] 29.7 g/dL Low 32.0-36.0 [facility] Comment on above: Performed By: #### 2 4323-8 #### BEVERLEY Poe ([id number]) [facility] ([facility]) [address] [place] [address] 53817 MCV (RBC) [Entitic vol] 102 fL High 80-100 [facility] Comment on above: Performed By: #### 2 4323-8 #### BEVERLEY Poe ([id number]) [facility] ([facility]) [address] [place] [address] 23454 Nucleated RBC/100 WBC (Bld) [Ratio] 0.0 /100 WBCs Normal 0.0-0.0 [facility] Comment on above: Performed By: #### 2 4323-8 #### BEVERLEY Poe ([id number]) [facility] ([facility]) [address] [place] [address] 31345 Platelets (Bld) [#/Vol] 91 x10*3/uL Low 150-450 [facility] Comment on above: Performed By: #### 2 4323-8 #### BEVERLEY Poe ([id number]) [facility] ([facility]) [id number] [place] [address] 51830 RBC (Bld) [#/Vol] 2.64 x10*6/uL Low 4.00-5.20 [facility] Comment on above: Performed By: #### 2 4323-8 #### BEVERLEY Poe ([id number]) [facility] ([facility]) [address] [place] [address] 41003 WBC (Bld) [#/Vol] 4.2 x10*3/uL Low 4.4-11.3 [facility] Comment on above: Performed By: #### 2 4323-8 #### BEVERLEY Poe ([id number]) [facility] ([facility]) [address] [place] [address] 67510 Cancer Ag 125on 09-18-2023 Cancer Ag 125 Qn 22.0 [arb'U]/mL Normal 0.0-30.2 [facility] Comment on above: Order Comment: CA 12 5 testing is performed by chemiluminescent immunoassay using the Siemens Teikon. Values obtained with different analytic methods cannot be used interchangeably.Serum CA 125 measurement is intended for use as an aid in monitoring patients previously treated for ovarian cancer. This assay is not intended for screening or diagnosis of cancer in the general population. The results must not be used as the sole means for clinical diagnosis or patient management decisions. Performed By: #### 3 4532-2 #### BEVERLEY Poe ([id number]) [facility] [id number] [place] [address] 03793 Ferritinon 09-18-2023 Ferritin [Mass/Vol] 344 ng/mL High 8 - 150 ng/mL [facility] Ferritin [Mass/Vol] 344 ng/mL High 8-150 [facility] Comment on above: Performed By: #### 5 7021-8 #### BEVERLEY Poe ([id number]) [facility] ([facility]) [address] [place] [address] 58534 Glucose Test strip manual (B ld) [Mass/Vol]on 09-18-2023 Glucose [Mass/Vol] 119 mg/dL High 74 - 99 mg/dL [facility] Interpretation and review of laboratory results Abnormal [facility] Glucose [Mass/Vol] 119 mg/dL High 74-99 [facility] Comment on above: Performed By: #### 5 7021-8 #### BEVERLEY Poe ([id number]) [facility] ([facility]) [address] [place] [address] 29292 Glucose [Mass/Vol] 135 mg/dL High 74 - 99 mg/dL [facility] Interpretation and review of laboratory results Abnormal [facility] Glucose [Mass/Vol] 135 mg/dL High 74-99 [facility] Comment on above: Performed By: #### 2 4323-8 #### BEVERLEY Poe ([id number]) [facility] ([facility]) [address] [place] [address] 66060 Glucose [Mass/Vol] 108 mg/dL High 74 - 99 mg/dL [facility] Interpretation and review of laboratory results Abnormal [facility] Glucose [Mass/Vol] 108 mg/dL High 74-99 [facility] Comment on above: Performed By: #### 2 4323-8 #### BEVERLEY Poe ([id number]) [facility] ([facility]) [address] [place] [address] 18290 HbA1c (Bld) [Mass fraction]o n 09-18-2023 Average glucose Estimated from glycated hemoglobin (Bld) [Mass/Vol] 91 mg/dL Not Established [facility] Average glucose Estimated from glycated hemoglobin (Bld) [Mass/Vol] 91 mg/dL Normal Not Established [facility] Comment on above: Order Comment: Diagn osis of Bzxcsbqa-AghqjoDqo-Ztmpepgc: < or = 5.6%Increased risk for developing diabetes: 5.7-6.4%Diagnostic of diabetes: > or = 6.5%Monitoring of DiabetesAge (y)....................... Therapeutic Goal (%)Adults: >18.........................<7.0Pediatrics: 13-18...................<7.5Pediatrics: 7-12....................<8.0Pediatrics: 0-6..................... 7.5-8.5[facility] Diabetes Association. Diabetes Care 33(S1)Nov 2009 Performed By: #### 2 4323-8 #### BEVERLEY Poe ([id number]) [facility] ([facility]) [address] [place] [address] Hemoglobin A1con 09-18-2023 HbA1c (Bld) [Mass fraction] 4.8 % see below [facility] Hemoglobin A1c/Hemoglobin.to daphne 09-18-2023 HbA1c (Bld) [Mass fraction] 4.8 % Normal see below [facility] Comment on above: Order Comment: Diagn osis of Mzyrswlv-MzubtdRdt-Dagjwxmn: < or = 5.6%Increased risk for developing diabetes: 5.7-6.4%Diagnostic of diabetes: > or = 6.5%Monitoring of DiabetesAge (y)....................... Therapeutic Goal (%)Adults: >18.........................<7.0Pediatrics: 13-18...................<7.5Pediatrics: 7-12....................<8.0Pediatrics: 0-6..................... 7.5-8.5American Diabetes Association. Diabetes Care 33(S1)Nov 2009 Performed By: #### 2 4323-8 #### BEVERLEY Poe ([id number]) [facility] ([facility]) [address] [place] [address] 11013 Hepatic function 2000 panelo n 09-18-2023 Albumin BCP dye [Mass/Vol] 2.7 g/dL Low 3.4 - 5.0 g/dL [facility] ALP [Catalytic activity/Vol] 47 U/L 33 - 136 U/L [facility] ALT With P-5'-P [Catalytic activity/Vol] 7 U/L 7 - 45 U/L [facility] AST With P-5'-P [Catalytic activity/Vol] 10 U/L 9 - 39 U/L [facility] Bilirubin [Mass/Vol] 0.4 mg/dL 0.0 - 1 .2 mg/dL [facility] Bilirubin.direct [Mass/Vol] 0.1 mg/dL 0.0 - 0.3 mg/dL [facility] Interpretation and review of laboratory results Abnormal [facility] Protein [Mass/Vol] 5.7 g/dL Low 6.4 - 8.2 g/dL [facility] Albumin BCP dye [Mass/Vol] 2.7 g/dL Low 3.4-5.0 [facility] Comment on above: Performed By: #### 2 4323-8 #### BEVERLEY Poe ([id number]) [facility] ([facility]) [address] [place] [address] 97236 ALP [Catalytic activity/Vol] 47 U/L Normal 33-136 [facility] Comment on above: Performed By: #### 2 4323-8 #### BEVERLEY Poe ([id number]) [facility] ([facility]) [address] [place] [address] 86026 ALT With P-5'-P [Catalytic activity/Vol] 7 U/L Normal 7-45 [facility] Comment on above: Result Comment: Ирина ents treated with Sulfasalazine may generate falsely decreased results for ALT. Performed By: #### 2 4323-8 #### BEVERLEY Poe ([id number]) [facility] ([facility]) [address] [place] [address] 42601 AST With P-5'-P [Catalytic activity/Vol] 10 U/L Normal 9-39 [facility] Comment on above: Performed By: #### 2 4323-8 #### BEVERLEY Poe ([id number]) [facility] ([facility]) [address] [place] [address] 25779 Bilirubin [Mass/Vol] 0.4 mg/dL Normal 0.0-1.2 [facility] Comment on above: Performed By: #### 2 4323-8 #### BEVERLEY Poe ([id number]) [facility] ([facility]) [address] [place] [address] 66888 Bilirubin.direct [Mass/Vol] 0.1 mg/dL Normal 0.0-0.3 [facility] Comment on above: Performed By: #### 2 4323-8 #### BEVERLEY Poe ([id number]) [facility] ([facility]) [address] [place] [address] 21256 Protein [Mass/Vol] 5.7 g/dL Low 6.4-8.2 [facility] Comment on above: Performed By: #### 2 4323-8 #### BEVERLEY Poe ([id number]) [facility] ([facility]) [address] [place] [address] 41923 Hepatitis B virus surface Ag on 09-18-2023 HBV surface Ag IA Ql Non-Reactive Normal Nonreactive U [facility] Comment on above: Result Comment: Biot in interference may cause falsely decreased results. Patients taking a Biotin dose of up to 5 mg/day should refrain from taking Biotin for 24 hours before sample collection. Providers may contact their local laboratory for further information. Performed By: #### 6 00-7 #### BEVERLEY Poe ([id number]) [facility] ([facility]) [address] [place] [address] 92229 Iron and Iron binding capaci ty panelon 09-18-2023 Iron [Mass/Vol] 33 ug/dL Low 35 - 150 ug/dL [facility] Iron binding capacity [Mass/Vol] 164 ug/dL Low 240 - 445 ug/dL [facility] Iron binding capacity.unsaturated [Mass/Vol] 131 ug/dL 110 - 370 ug/dL [facility] Iron saturation [Mass fraction] 20 % Low 25 - 45 % [facility] Iron [Mass/Vol] 33 ug/dL Low 35-150 [facility] Comment on above: Performed By: #### 5 7021-8 #### BEVERLEY Poe ([id number]) [facility] ([facility]) [address] [place] [address] 84708 Iron binding capacity [Mass/Vol] 164 ug/dL Low 240-445 [facility] Comment on above: Performed By: #### 5 7021-8 #### BEVERLEY Poe ([id number]) [facility] ([facility]) [address] [place] [address] 68490 Iron binding capacity.unsaturated [Mass/Vol] 131 ug/dL Normal 110-370 [facility] Comment on above: Performed By: #### 5 7021-8 #### BEVERLEY Poe ([id number]) [facility] ([facility]) [address] [place] [address] 90529 Iron saturation [Mass fraction] 20 % Low 25-45 [facility] Comment on above: Performed By: #### 5 7021-8 #### BEVERLEY Poe ([id number]) [facility] ([facility]) [address] [place] [address] 51759 Magnesiumon 09-18-2023 Magnesium [Mass/Vol] 1.80 mg/dL 1.60 - 2.40 mg/dL [facility] Magnesium [Mass/Vol] 1.80 mg/dL Normal 1.60-2.40 [facility] Comment on above: Performed By: #### 2 4323-8 #### BEVERLEY Poe ([id number]) [facility] ([facility]) [address] [place] [address] 90218 Magnesium [Mass/Vol]on 09-18 Interpretation and review of laboratory results Normal [facility] Natriuretic peptide B [Mass/ Vol]on 09-18-2023 Interpretation and review of laboratory results Abnormal [facility] Natriuretic peptide B (Bld) [Mass/Vol] 144 pg/mL High 0 - 99 pg/mL [facility] Natriuretic peptide B (Bld) [Mass/Vol] 144 pg/mL High 0-99 [facility] Comment on above: Order Comment: <100 pg/mL - Heart failure [id number] pg/mL - Intermediate probability of acute heart failure exacerbation. Correlate with clinical context and patient history. >=300 pg/mL - Heart Failure likely. Correlate with clinical context and patient history.Biotin interference may cause falsely decreased results. Patients taking a Biotin dose of up to 5 mg/day should refrain from taking Biotin for 24 hours before sample collection. Providers may contact their local laboratory for further information. Performed By: #### 5 7021-8 #### BEVERLEY Poe ([id number]) [facility] ([facility]) [address] [place] [address] No Panel Informationon 09-18 Interpretation and review of laboratory results Abnormal [facility] Prealbuminon 09-18-2023 Prealbumin [Mass/Vol] 11.4 mg/dL Low 18.0 - 40.0 mg/dL [facility] Prealbumin [Mass/Vol] 11.4 mg/dL Low 18.0-40.0 [facility] Comment on above: Performed By: #### 5 7021-8 #### BEVERLEY Poe ([id number]) [facility] ([facility]) [address] [place] [address] Prealbumin [Mass/Vol]on Interpretation and review of laboratory results Abnormal [facility] Renal function 2000 panelon 09-18-2023 Albumin BCP dye [Mass/Vol] 2.8 g/dL Low 3.4 - 5.0 g/dL [facility] Anion gap [Moles/Vol] 12 mmol/L 10 - 2 0 mmol/L [facility] Calcium [Mass/Vol] 8.6 mg/dL 8.6 - 10. 6 mg/dL [facility] Chloride [Moles/Vol] 99 mmol/L 98 - 10 7 mmol/L [facility] CO2 [Moles/Vol] 39 mmol/L High 21 - 32 mmol/L [facility] Creatinine [Mass/Vol] 0.37 mg/dL Low 0.50 - 1.05 mg/dL [facility] GFR/1.73 sq M.predicted MDRD (S/P/Bld) [Vol rate/Area] - PINF [facility] Glucose [Mass/Vol] 99 mg/dL 74 - 99 mg/dL [facility] Interpretation and review of laboratory results Abnormal [facility] Phosphate [Mass/Vol] 2.8 mg/dL 2.5 - 4 .9 mg/dL [facility] Potassium [Moles/Vol] 3.6 mmol/L 3.5 - 5.3 mmol/L [facility] Sodium [Moles/Vol] 146 mmol/L High 136 - 145 mmol/L [facility] Urea nitrogen [Mass/Vol] 11 mg/dL 6 - 23 mg/dL [facility] Albumin BCP dye [Mass/Vol] 2.8 g/dL Low 3.4-5.0 [facility] Comment on above: Performed By: #### 2 4323-8 #### BEVERLEY Poe ([id number]) [facility] ([facility]) [address] [place] [address] Anion gap [Moles/Vol] 12 mmol/L Normal 10-20 [facility] Comment on above: Performed By: #### 2 4323-8 #### BEVERLEY Poe ([id number]) [facility] ([facility]) [address] [place] [address] Calcium [Mass/Vol] 8.6 mg/dL Normal 8.6-10.6 [facility] Comment on above: Performed By: #### 2 4323-8 #### BEVERLEY Poe ([id number]) [facility] ([facility]) [address] [place] [address] Chloride [Moles/Vol] 99 mmol/L Normal 98-107 [facility] Comment on above: Performed By: #### 2 4323-8 #### BEVERLEY Poe ([id number]) [facility] ([facility]) [address] [place] [address] 64823 CO2 [Moles/Vol] 39 mmol/L High 21-32 [facility] Comment on above: Performed By: #### 2 4323-8 #### BEVERLEY Poe ([id number]) [facility] ([facility]) [address] [place] [address] 87104 Creatinine [Mass/Vol] 0.37 mg/dL Low 0.50-1.05 [facility] Comment on above: Performed By: #### 2 4323-8 #### BEVERLEY Poe ([id number]) [facility] ([facility]) [address] [place] [address] 54289 GFR/1.73 sq M.predicted MDRD (S/P/Bld) [Vol rate/Area] mL/min/{1.73_m2} Normal >60 [facility] Comment on above: Result Comment: Calc ulations of estimated GFR are performed using the 2020 CKD-EPI Study Refit equation without the race variable for the IDMS-Traceable creatinine methods. https://jasn.asnjournals.org/content//ASN.52042 35893 Performed By: #### 2 4323-8 #### BEVERLEY Poe ([id number]) [facility] ([facility]) [address] [place] [address] 75217 Glucose [Mass/Vol] 99 mg/dL Normal 74-99 [facility] Comment on above: Performed By: #### 2 4323-8 #### BEVERLEY Poe ([id number]) [facility] ([facility]) [address] [place] [address] 92797 Phosphate [Mass/Vol] 2.8 mg/dL Normal 2.5-4.9 [facility] Comment on above: Result Comment: The performance characteristics of phosphorus testing in heparinized plasma have been validated by the individual laboratory site where testing is performed. Testing on heparinized plasma is not approved by the FDA; however, such approval is not necessary. Performed By: #### 2 4323-8 #### BEVERLEY Poe ([id number]) [facility] ([facility]) [address] [place] [address] 86067 Potassium [Moles/Vol] 3.6 mmol/L Normal 3.5-5.3 [facility] Comment on above: Performed By: #### 2 4323-8 #### BEVERLEY Poe ([id number]) [facility] ([facility]) [address] [place] [address] 25888 Sodium [Moles/Vol] 146 mmol/L High 136-145 [facility] Comment on above: Performed By: #### 2 4323-8 #### BEVERLEY Poe ([id number]) [facility] ([facility]) [address] [place] [address] 69353 Urea nitrogen [Mass/Vol] 11 mg/dL Normal 6-23 [facility] Comment on above: Performed By: #### 2 4323-8 #### BEVERLEY Poe ([id number]) [facility] ([facility]) [address] [place] [address] 31896 CBC panel Auto (Bld)on 09-17 Erythrocyte distribution width (RBC) [Ratio] 13.8 % 11.5 - 14.5 % [facility] Hematocrit (Bld) [Volume fraction] 27.0 % Low 36.0 - 46.0 % [facility] Hemoglobin (Bld) [Mass/Vol] 8.2 g/dL Low 12.0 - 16.0 g/dL [facility] Interpretation and review of laboratory results Abnormal [facility] MCH (RBC) [Entitic mass] 30.6 pg 26.0 - 34.0 pg [facility] MCHC (RBC) [Mass/Vol] 30.4 g/dL Low 32.0 - 36.0 g/dL [facility] MCV (RBC) [Entitic vol] 101 fL High 80 - 100 fL [facility] Nucleated RBC/100 WBC (Bld) [Ratio] 0.0 % [facility] Platelets (Bld) [#/Vol] 88 10*3/uL Low [facility] RBC (Bld) [#/Vol] 2.68 10*6/uL [facility] WBC (Bld) [#/Vol] 3.7 10*3/uL [facility] Erythrocyte distribution width (RBC) [Ratio] 13.8 % Normal 11.5-14.5 [facility] Comment on above: Performed By: #### 1 9123-9 #### BEVERLEY Poe ([id number]) [facility] ([facility]) [address] [place] [address] 25093 Hematocrit (Bld) [Volume fraction] 27.0 % Low 36.0-46.0 [facility] Comment on above: Performed By: #### 1 9123-9 #### BEVERLEY Poe ([id number]) [facility] ([facility]) [address] [place] [address] 77490 Hemoglobin (Bld) [Mass/Vol] 8.2 g/dL Low 12.0-16.0 [facility] Comment on above: Performed By: #### 1 9123-9 #### BEVERLEY Poe ([id number]) [facility] ([facility]) [address] [place] [address] 45040 MCH (RBC) [Entitic mass] 30.6 pg Normal 26.0-34.0 [facility] Comment on above: Performed By: #### 1 9123-9 #### BEVERLEY Poe ([id number]) [facility] ([facility]) [address] [place] [address] 15289 MCHC (RBC) [Mass/Vol] 30.4 g/dL Low 32.0-36.0 [facility] Comment on above: Performed By: #### 1 9123-9 #### BEVERLEY Poe ([id number]) [facility] ([facility]) [address] [place] [address] 72970 MCV (RBC) [Entitic vol] 101 fL High 80-100 [facility] Comment on above: Performed By: #### 1 9123-9 #### BEVERLEY Poe ([id number]) [facility] ([facility]) [address] [place] [address] 18103 Nucleated RBC/100 WBC (Bld) [Ratio] 0.0 /100 WBCs Normal 0.0-0.0 [facility] Comment on above: Performed By: #### 1 9123-9 #### BEVERLEY Poe ([id number]) [facility] ([facility]) [address] [place] [address] 91413 Platelets (Bld) [#/Vol] 88 x10*3/uL Low 150-450 [facility] Comment on above: Performed By: #### 1 9123-9 #### BEVERLEY Poe ([id number]) [facility] ([facility]) [address] [place] [address] 97585 RBC (Bld) [#/Vol] 2.68 x10*6/uL Low 4.00-5.20 [facility] Comment on above: Performed By: #### 1 9123-9 #### BEVERLEY Poe ([id number]) [facility] ([facility]) [address] [place] [address] 09354 WBC (Bld) [#/Vol] 3.7 x10*3/uL Low 4.4-11.3 [facility] Comment on above: Performed By: #### 1 9123-9 #### BEVERLEY Poe ([id number]) [facility] ([facility]) [address] [place] [address] 24371 Glucose Test strip manual (B ld) [Mass/Vol]on 09-17-2023 Glucose [Mass/Vol] 142 mg/dL High 74 - 99 mg/dL [facility] Interpretation and review of laboratory results Abnormal [facility] Glucose [Mass/Vol] 142 mg/dL High 74-99 [facility] Comment on above: Performed By: #### 2 4323-8 #### BEVERLEY Poe ([id number]) [facility] ([facility]) [address] [place] [address] 70102 Glucose [Mass/Vol] 117 mg/dL High 74 - 99 mg/dL [facility] Interpretation and review of laboratory results Abnormal [facility] Glucose [Mass/Vol] 117 mg/dL High 74-99 [facility] Comment on above: Performed By: #### 2 4323-8 #### BEVERLEY Poe ([id number]) [facility] ([facility]) [address] [place] [address] 01692 Glucose [Mass/Vol] 138 mg/dL High 74 - 99 mg/dL [facility] Interpretation and review of laboratory results Abnormal [facility] Glucose [Mass/Vol] 138 mg/dL High 74-99 [facility] Comment on above: Performed By: #### 2 4323-8 #### BEVERLEY Poe ([id number]) [facility] ([facility]) [address] [place] [address] 52798 Glucose [Mass/Vol] 96 mg/dL 74 - 99 mg/dL [facility] Interpretation and review of laboratory results Normal [facility] Glucose [Mass/Vol] 96 mg/dL Normal 74-99 [facility] Comment on above: Performed By: #### 1 9123-9 #### BEVERLEY Poe ([id number]) [facility] ([facility]) [address] [place] [address] 20224 Magnesiumon 09-17-2023 Magnesium [Mass/Vol] 2.00 mg/dL 1.60 - 2.40 mg/dL [facility] Magnesium [Mass/Vol] 2.00 mg/dL Normal 1.60-2.40 [facility] Comment on above: Performed By: #### 1 9123-9 #### BEVERLEY oPe ([id number]) [facility] ([facility]) [address] [place] [address] 03508 Magnesium [Mass/Vol]on 09-17 Interpretation and review of laboratory results Normal [facility] No Panel Informationon 09-17 [facility] Renal function 2000 panelon 09-17-2023 Albumin BCP dye [Mass/Vol] 2.9 g/dL Low 3.4 - 5.0 g/dL [facility] Anion gap [Moles/Vol] 11 mmol/L 10 - 2 0 mmol/L [facility] Calcium [Mass/Vol] 8.7 mg/dL 8.6 - 10. 6 mg/dL [facility] Chloride [Moles/Vol] 100 mmol/L 98 - 10 7 mmol/L [facility] CO2 [Moles/Vol] 40 mmol/L Critically high 21 - 32 mmol/L [facility] Creatinine [Mass/Vol] 0.32 mg/dL Low 0.50 - 1.05 mg/dL [facility] GFR/1.73 sq M.predicted MDRD (S/P/Bld) [Vol rate/Area] - PINF [facility] Glucose [Mass/Vol] 95 mg/dL 74 - 99 mg/dL [facility] Interpretation and review of laboratory results Abnormal [facility] Phosphate [Mass/Vol] 3.8 mg/dL 2.5 - 4 .9 mg/dL [facility] Potassium [Moles/Vol] 3.8 mmol/L 3.5 - 5.3 mmol/L [facility] Sodium [Moles/Vol] 147 mmol/L High 136 - 145 mmol/L [facility] Urea nitrogen [Mass/Vol] 10 mg/dL 6 - 23 mg/dL [facility] Albumin BCP dye [Mass/Vol] 2.9 g/dL Low 3.4-5.0 [facility] Comment on above: Performed By: #### 1 9123-9 #### BEVERLEY Poe ([id number]) [facility] [facility] ([facility]) [address] [place] [address] Anion gap [Moles/Vol] 11 mmol/L Normal 10-20 [facility] Comment on above: Performed By: #### 1 9123-9 #### BEVERLEY Poe ([id number]) [facility] ([facility]) [address] [place] [address] Calcium [Mass/Vol] 8.7 mg/dL Normal 8.6-10.6 [facility] Comment on above: Performed By: #### 1 9123-9 #### BEVERLEY Poe ([id number]) [facility] ([facility]) [address] [place] [address] Chloride [Moles/Vol] 100 mmol/L Normal 98-107 [facility] Comment on above: Performed By: #### 1 9123-9 #### BEVERLEY DODD L ([id number]) [facility] ([facility]) [address] [place] [address] CO2 [Moles/Vol] 40 mmol/L Critically high 21-32 [facility] Comment on above: Performed By: #### 1 9123-9 #### BEVERLEY DODD L ([id number]) [facility] ([facility]) [address] [place] [address] Creatinine [Mass/Vol] 0.32 mg/dL Low 0.50-1.05 [facility] Comment on above: Performed By: #### 1 9123-9 #### BEVERLEY DODD L ([id number]) [facility] ([facility]) [address] [place] [address] GFR/1.73 sq M.predicted MDRD (S/P/Bld) [Vol rate/Area] mL/min/{1.73_m2} Normal >60 [facility] Comment on above: Result Comment: Calc ulations of estimated GFR are performed using the 2020 CKD-EPI Study Refit equation without the race variable for the IDMS-Traceable creatinine methods. https://jasn.asnjournals.org/content//ASN.36625 93247 Performed By: #### 1 9123-9 #### BEVERLEY Poe ([id number]) [facility] ([facility]) [address] [place] [address] Glucose [Mass/Vol] 95 mg/dL Normal 74-99 [facility] Comment on above: Performed By: #### 1 9123-9 #### BEVERLEY Poe ([id number]) [facility] ([facility]) [address] [place] [address] Phosphate [Mass/Vol] 3.8 mg/dL Normal 2.5-4.9 [facility] Comment on above: Result Comment: The performance characteristics of phosphorus testing in heparinized plasma have been validated by the individual laboratory site where testing is performed. Testing on heparinized plasma is not approved by the FDA; however, such approval is not necessary. Performed By: #### 1 9123-9 #### BEVERLEY Poe ([id number]) [facility] ([facility]) [address] [place] [address] Potassium [Moles/Vol] 3.8 mmol/L Normal 3.5-5.3 [facility] Comment on above: Performed By: #### 1 9123-9 #### BEVERLEY Poe ([id number]) [facility] ([facility]) [address] [place] [address] Sodium [Moles/Vol] 147 mmol/L High 136-145 [facility] Comment on above: Performed By: #### 1 9123-9 #### BEVERLEY Poe ([id number]) [facility] ([facility]) [address] [place] [address] Urea nitrogen [Mass/Vol] 10 mg/dL Normal 6-23 [facility] Comment on above: Performed By: #### 1 9123-9 #### BEVERLEY Poe ([id number]) [facility] ([facility]) [address] [place] [address] Blood type and Indirect anti body screen panel (Bld)on 09-16-2023 ABO group Nom (Bld) O [facility] Blood group antibody screen Ql Negative [facility] D Ag Ql (Bld) Positive [facility] CBC panel Auto (Bld)on 09-16 Erythrocyte distribution width (RBC) [Ratio] 13.9 % 11.5 - 14.5 % [facility] Hematocrit (Bld) [Volume fraction] 29.3 % Low 36.0 - 46.0 % [facility] Hemoglobin (Bld) [Mass/Vol] 8.5 g/dL Low 12.0 - 16.0 g/dL [facility] Interpretation and review of laboratory results Abnormal [facility] MCH (RBC) [Entitic mass] 29.9 pg 26.0 - 34.0 pg [facility] MCHC (RBC) [Mass/Vol] 29.0 g/dL Low 32.0 - 36.0 g/dL [facility] MCV (RBC) [Entitic vol] 103 fL High 80 - 100 fL [facility] Nucleated RBC/100 WBC (Bld) [Ratio] 0.0 % [facility] Platelets (Bld) [#/Vol] 93 10*3/uL Low [facility] RBC (Bld) [#/Vol] 2.84 10*6/uL [facility] WBC (Bld) [#/Vol] 3.4 10*3/uL [facility] Erythrocyte distribution width (RBC) [Ratio] 13.9 % Normal 11.5-14.5 [facility] Comment on above: Performed By: #### 1 9123-9 #### BEVERLEY Poe ([id number]) [facility] ([facility]) [address] [place] [address] Hematocrit (Bld) [Volume fraction] 29.3 % Low 36.0-46.0 [facility] Comment on above: Performed By: #### 1 9123-9 #### BEVERLEY Poe ([id number]) [facility] ([facility]) [address] [place] [address] Hemoglobin (Bld) [Mass/Vol] 8.5 g/dL Low 12.0-16.0 [facility] Comment on above: Performed By: #### 1 9123-9 #### BEVERLEY Poe ([id number]) [facility] ([facility]) [address] [place] [address] [place] [address] MCH (RBC) [Entitic mass] 29.9 pg Normal 26.0-34.0 [facility] Comment on above: Performed By: #### 1 9123-9 #### BEVERLEY Poe ([id number]) [facility] ([facility]) [address] [place] [address] MCHC (RBC) [Mass/Vol] 29.0 g/dL Low 32.0-36.0 [facility] Comment on above: Performed By: #### 1 9123-9 #### BEVERLEY Poe ([id number]) [facility] ([facility]) [address] [place] [address] MCV (RBC) [Entitic vol] 103 fL High 80-100 [facility] Comment on above: Performed By: #### 1 9123-9 #### BEVERLEY Poe ([id number]) [facility] ([facility]) [address] [place] [address] Nucleated RBC/100 WBC (Bld) [Ratio] 0.0 /100 WBCs Normal 0.0-0.0 [facility] Comment on above: Performed By: #### 1 9123-9 #### BEVERLEY Poe ([id number]) [facility] ([facility]) [address] [place] [address] Platelets (Bld) [#/Vol] 93 x10*3/uL Low 150-450 [facility] Comment on above: Performed By: #### 1 9123-9 #### BEVERLEY Poe ([id number]) [facility] ([facility]) [address] [place] [address] RBC (Bld) [#/Vol] 2.84 x10*6/uL Low 4.00-5.20 [facility] Comment on above: Performed By: #### 1 9123-9 #### BEVERLEY Poe ([id number]) [facility] ([facility]) [address] [place] [address] WBC (Bld) [#/Vol] 3.4 x10*3/uL Low 4.4-11.3 [facility] Comment on above: Performed By: #### 1 9123-9 #### BEVERLEY Poe ([id number]) [facility] ([facility]) [address] [place] [address] Carcinoembryonic Agon 2022 Carcinoembryonic Ag [Mass/Vol] ng/mL Normal [facility] Comment on above: Order Comment: REF V ALUES NONSMOKERS 0-2.5 SMOKERS 0-5.0CEA testing is performed by chemiluminescent immunoassay using the Cura TV. Values obtained with different analytic methods cannot be used interchangeably.Serum CEA measurement is intended for use as an aid in the management of patients previously treated for cancer. This assay is not intended for screening or diagnosis of cancer in the general population. The results must notbe used as the sole means for clinical diagnosis or patient management decisions. Performed By: #### 1 9123-9 #### BEVERLEY Poe ([id number]) [facility] ([facility]) [address] [place] [address] Carcinoembryonic Ag [Mass/Vo l]on 09-16-2023 [facility] Carcinoembryonic Antigenon 1 11-16-2022 Carcinoembryonic Ag [Mass/Vol] ug/L ug/L [facility] Glucose Test strip manual (B ld) [Mass/Vol]on 09-16-2023 Glucose [Mass/Vol] 96 mg/dL 74 - 99 mg/dL [facility] Interpretation and review of laboratory results Normal [facility] Glucose [Mass/Vol] 96 mg/dL Normal 74-99 [facility] Comment on above: Performed By: #### 1 9123-9 #### BEVERLEY Poe ([id number]) [facility] ([facility]) [address] [place] [address] Glucose [Mass/Vol] 94 mg/dL 74 - 99 mg/dL [facility] Interpretation and review of laboratory results Normal [facility] Glucose [Mass/Vol] 94 mg/dL Normal 74-99 [facility] Comment on above: Performed By: #### 1 9123-9 #### BEVERLEY Poe ([id number]) [facility] ([facility]) [address] [place] [address] Glucose [Mass/Vol] 98 mg/dL 74 - 99 mg/dL [facility] Interpretation and review of laboratory results Normal [facility] Glucose [Mass/Vol] 98 mg/dL Normal 74-99 [facility] Comment on above: Performed By: #### 2 341-6 #### BEVERLEY Poe ([id number]) [facility] ([facility]) [address] [place] [address] Glucose [Mass/Vol] 92 mg/dL 74 - 99 mg/dL [facility] Interpretation and review of laboratory results Normal [facility] Glucose [Mass/Vol] 92 mg/dL Normal 74-99 [facility] Comment on above: Performed By: #### 2 341-6 #### BEVERLEY Poe ([id number]) [facility] ([facility]) [address] [place] [address]68 Glucose [Mass/Vol] 88 mg/dL 74 - 99 mg/dL [facility] Interpretation and review of laboratory results Normal [facility] Glucose [Mass/Vol] 88 mg/dL Normal 74-99 [facility] Comment on above: Performed By: #### 2 341-6 #### BEVERLEY Poe ([id number]) [facility] ([facility]) [address] [place] [address]96 Magnesiumon 09-16-2023 Magnesium [Mass/Vol] 2.04 mg/dL 1.60 - 2.40 mg/dL [facility] Magnesium [Mass/Vol] 2.04 mg/dL Normal 1.60-2.40 [facility] Comment on above: Performed By: #### 1 9123-9 #### BEVERLEY Poe ([id number]) [facility] ([facility]) [address] [place] [address] Magnesium [Mass/Vol]on 09-16 Interpretation and review of laboratory results Normal [facility] No Panel Informationon 09-16 [facility] Renal function 2000 panelon 09-16-2023 Albumin BCP dye [Mass/Vol] 3.0 g/dL Low 3.4 - 5.0 g/dL [facility] Anion gap [Moles/Vol] 10 mmol/L 10 - 2 0 mmol/L [facility] Calcium [Mass/Vol] 8.8 mg/dL 8.6 - 10. 6 mg/dL [facility] Chloride [Moles/Vol] 99 mmol/L 98 - 10 7 mmol/L [facility] CO2 [Moles/Vol] 40 mmol/L Critically high 21 - 32 mmol/L [facility] Creatinine [Mass/Vol] 0.40 mg/dL Low 0.50 - 1.05 mg/dL [facility] GFR/1.73 sq M.predicted MDRD (S/P/Bld) [Vol rate/Area] - PINF [facility] Glucose [Mass/Vol] 88 mg/dL 74 - 99 mg/dL [facility] Interpretation and review of laboratory results Abnormal [facility] Phosphate [Mass/Vol] 3.1 mg/dL 2.5 - 4 .9 mg/dL [facility] Potassium [Moles/Vol] 3.7 mmol/L 3.5 - 5.3 mmol/L [facility] Sodium [Moles/Vol] 145 mmol/L 136 - 145 mmol/L [facility] Urea nitrogen [Mass/Vol] 12 mg/dL 6 - 23 mg/dL [facility] Albumin BCP dye [Mass/Vol] 3.0 g/dL Low 3.4-5.0 [facility] Comment on above: Performed By: #### 1 9123-9 #### BEVERLEY Poe ([id number]) [facility] ([facility]) [address] [place] [address] Anion gap [Moles/Vol] 10 mmol/L Normal 10-20 [facility] Comment on above: Performed By: #### 1 9123-9 #### BEVERLEY DODD L ([id number]) [facility] ([facility]) [address] [place] [address] Calcium [Mass/Vol] 8.8 mg/dL Normal 8.6-10.6 [facility] Comment on above: Performed By: #### 1 9123-9 #### BEVERLEY DODD L ([id number]) [facility] ([facility]) [address] [place] [address] Chloride [Moles/Vol] 99 mmol/L Normal 98-107 [facility] Comment on above: Performed By: #### 1 9123-9 #### BEVERLEY DODD L ([id number]) [facility] ([facility]) [address] [place] [address] CO2 [Moles/Vol] 40 mmol/L Critically high 21-32 [facility] Comment on above: Performed By: #### 1 9123-9 #### BEVERLEY DODD L ([id number]) [facility] ([facility]) [address] [place] [address] Creatinine [Mass/Vol] 0.40 mg/dL Low 0.50-1.05 [facility] Comment on above: Performed By: #### 1 9123-9 #### BEVERLEY DODD L ([id number]) [facility] ([facility]) [address] [place] [address] GFR/1.73 sq M.predicted MDRD (S/P/Bld) [Vol rate/Area] mL/min/{1.73_m2} Normal >60 [facility] Comment on above: Result Comment: Calc ulations of estimated GFR are performed using the 2020 CKD-EPI Study Refit equation without the race variable for the IDMS-Traceable creatinine methods. https://jasn.asnjournals.org/content//ASN.26548 93074 Performed By: #### 1 9123-9 #### BEVERLEY DODD L ([id number]) [facility] ([facility]) [address] [place] [address] Glucose [Mass/Vol] 88 mg/dL Normal 74-99 [facility] Comment on above: Performed By: #### 1 9123-9 #### BEVERLEY Poe ([id number]) [facility] ([facility]) [address] [place] [address] Phosphate [Mass/Vol] 3.1 mg/dL Normal 2.5-4.9 [facility] Comment on above: Result Comment: The performance characteristics of phosphorus testing in heparinized plasma have been validated by the individual laboratory site where testing is performed. Testing on heparinized plasma is not approved by the FDA; however, such approval is not necessary. Performed By: #### 1 9123-9 #### BEVERLEY Poe ([id number]) [facility] ([facility]) [address] [place] [address] Potassium [Moles/Vol] 3.7 mmol/L Normal 3.5-5.3 [facility] Comment on above: Performed By: #### 1 9123-9 #### BEVERLEY Poe ([id number]) [facility] ([facility]) [address] [place] [address] Sodium [Moles/Vol] 145 mmol/L Normal 136-145 [facility] Comment on above: Performed By: #### 1 9123-9 #### BEVERLEY Poe ([id number]) [facility] ([facility]) [address] [place] [address]12 Urea nitrogen [Mass/Vol] 12 mg/dL Normal 6-23 [facility] Comment on above: Performed By: #### 1 9123-9 #### BEVERLEY Poe ([id number]) [facility] ([facility]) [address] [place] [address] Bacteria identifiedon 2022 Bacteria identified Cx Nom (Bld) Test: Blood Culture Specimen Source: Peripheral Venipuncture Specimen Type: Blood culture Specimen Date: 09/15/2023 9:24 PM Result Date: 09/19/2023 10:01 PM Result Status: Final result Abnormal: No Resulting Lab: [facility] [address] [place] [address] CULTURE No growth at 4 days - FINAL REPORT [facility] Comment on above: Performed By: #### 6 00-7 #### BEVERLEY Poe ([id number]) [facility] ([facility]) [address] [place] [address] Basophil percentageOrdered B y: Calvin Hester on 09-15-2023 Lactate [Moles/Vol] 0.6 mmol/L 0.4-2.0 [facility] Basophil percentage 10-25 SEEN /hpf 0-5 [facility] Bilirubin Test strip Ql (U)O rdered By: Calvin Hester on 09-15-2023 Bilirubin Ql (U) Negative Negative [facility] Blood type and Indirect anti body screen panel (Bld)on 09-15-2023 ABO group Nom (Bld) O [facility] Comment on above: Performed By: #### 3 4532-2 #### BEVERLEY Poe ([id number]) [facility] ([facility]) [address] [place] [address] Blood group antibody screen Ql Negative [facility] Comment on above: Performed By: #### 3 4532-2 #### BEVERLEY Poe ([id number]) [facility] ([facility]) [address] [place] [address] D Ag Ql (Bld) Positive [facility] Comment on above: Result Comment: 2nd ABO test required. Order and Collect VERAB Performed By: #### 3 4532-2 #### BEVERLEY Poe ([id number]) [facility] ([facility]) [address] [place] [address] CBC W Auto Differential pane l (Bld)on 09-15-2023 Basophils (Bld) [#/Vol] 0.01 10*3/uL [facility] Basophils/100 WBC (Bld) 0.3 % 0.0 - 2.0 % [facility] Eosinophils (Bld) [#/Vol] 0.06 10*3/uL [facility] Eosinophils/100 WBC (Bld) 1.7 % 0.0 - 6.0 % [facility] Erythrocyte distribution width (RBC) [Ratio] 13.9 % 11.5 - 14.5 % [facility] Hematocrit (Bld) [Volume fraction] 27.8 % Low 36.0 - 46.0 % [facility] Hemoglobin (Bld) [Mass/Vol] 7.9 g/dL Low 12.0 - 16.0 g/dL [facility] Immature granulocytes (Bld) [#/Vol] 0.02 10*3/uL [facility] Immature granulocytes/100 WBC (Bld) 0.6 % 0.0 - 0.9 % [facility] Interpretation and review of laboratory results Abnormal [facility] Lymphocytes (Bld) [#/Vol] 0.67 10*3/uL Low [facility] Lymphocytes/100 WBC (Bld) 19.2 % 13.0 - 44.0 % [facility] MCH (RBC) [Entitic mass] 29.8 pg 26.0 - 34.0 pg [facility] MCHC (RBC) [Mass/Vol] 28.4 g/dL Low 32.0 - 36.0 g/dL [facility] MCV (RBC) [Entitic vol] 105 fL High 80 - 100 fL [facility] Monocytes (Bld) [#/Vol] 0.23 10*3/uL [facility] Monocytes/100 WBC (Bld) 6.6 % 2.0 - 10.0 % [facility] Neutrophils (Bld) [#/Vol] 2.50 10*3/uL [facility] Neutrophils/100 WBC (Bld) 71.6 % 40.0 - 80.0 % [facility] Nucleated RBC/100 WBC (Bld) [Ratio] 0.0 % [facility] Platelets (Bld) [#/Vol] 123 10*3/uL Low [facility] RBC (Bld) [#/Vol] 2.65 10*6/uL Low [facility] WBC (Bld) [#/Vol] 3.5 10*3/uL Low [facility] Basophils (Bld) [#/Vol] 0.01 x10*3/uL Normal 0.00-0.10 [facility] Comment on above: Performed By: #### 5 7021-8 #### BEVERLEY Poe ([id number]) [facility]) [address] [place] [address] 20190 Basophils/100 WBC (Bld) 0.3 % Normal 0.0-2.0 [facility] Comment on above: Performed By: #### 5 7021-8 #### BEVERLEY DODD L ([id number]) [facility] ([facility]) [address] [place] [address] 10110 Eosinophils (Bld) [#/Vol] 0.06 x10*3/uL Normal 0.00-0.40 [facility] Comment on above: Performed By: #### 5 7021-8 #### BEVERLEY DODD L ([id number]) [facility] ([facility]) [address] [place] [address] 63822 Eosinophils/100 WBC (Bld) 1.7 % Normal 0.0-6.0 [facility] Comment on above: Performed By: #### 5 7021-8 #### BEVERLEY DODD L ([id number]) [facility] ([facility]) [address] [place] [address] 41121 Erythrocyte distribution width (RBC) [Ratio] 13.9 % Normal 11.5-14.5 [facility] Comment on above: Performed By: #### 5 7021-8 #### BEVERLEY DODD L ([id number]) [facility] ([facility]) [address] [place] [address] 15985 Hematocrit (Bld) [Volume fraction] 27.8 % Low 36.0-46.0 [facility] Comment on above: Performed By: #### 5 7021-8 #### BEVERLEY DODD L ([id number]) [facility] ([facility]) [address] [place] [address] Hemoglobin (Bld) [Mass/Vol] 7.9 g/dL Low 12.0-16.0 [facility] Comment on above: Performed By: #### 5 7021-8 #### BEVERLEY Poe ([id number]) [facility] ([facility]) [address] [place] [address] 31180 Immature granulocytes (Bld) [#/Vol] 0.02 x10*3/uL Normal 0.00-0.50 [facility] Comment on above: Performed By: #### 5 7021-8 #### BEVERLEY Poe ([id number]) [facility] ([facility]) [address] [place] [address] 69540 Immature granulocytes/100 WBC (Bld) 0.6 % Normal 0.0-0.9 [facility] Comment on above: Result Comment: Sharda ture Granulocyte Count (IG) includes promyelocytes, myelocytes and metamyelocytes but does not include bands. Percent differential counts (%) should be interpreted in the context of the absolute cell counts (cells/UL). Performed By: #### 5 7021-8 #### BEVERLEY Poe ([id number]) [facility] ([facility]) [address] [place] [address] 31942 Lymphocytes (Bld) [#/Vol] 0.67 x10*3/uL Low 0.80-3.00 [facility] Comment on above: Performed By: #### 5 7021-8 #### BEVERLEY Poe ([id number]) [facility] ([facility]) [address] [place] [address] 60752 Lymphocytes/100 WBC (Bld) 19.2 % Normal 13.0-44.0 [facility] Comment on above: Performed By: #### 5 7021-8 #### BEVERLEY Poe ([id number]) [facility] ([facility]) [address] [place] [address] MCH (RBC) [Entitic mass] 29.8 pg Normal 26.0-34.0 [facility] Comment on above: Performed By: #### 5 7021-8 #### BEVERLEY Poe ([id number]) [facility] ([facility]) [address] [place] [address] MCHC (RBC) [Mass/Vol] 28.4 g/dL Low 32.0-36.0 [facility] Comment on above: Performed By: #### 5 7021-8 #### BEVERLEY DODD L ([id number]) [facility] ([facility]) [address] [place] [address] 46325 MCV (RBC) [Entitic vol] 105 fL High 80-100 [facility] Comment on above: Performed By: #### 5 7021-8 #### BEVERLEY Poe ([id number]) [facility] ([facility]) [address] [place] [address] 75249 Monocytes (Bld) [#/Vol] 0.23 x10*3/uL Normal 0.05-0.80 [facility] Comment on above: Performed By: #### 5 7021-8 #### BEVERLEY Poe ([id number]) [facility] ([facility]) [address] [place] [address] 49066 Monocytes/100 WBC (Bld) 6.6 % Normal 2.0-10.0 [facility] Comment on above: Performed By: #### 5 7021-8 #### BEVERLEY DODD L ([id number]) [facility] ([facility]) [id number] [place] [id number] Neutrophils (Bld) [#/Vol] 2.50 x10*3/uL Normal 1.60-5.50 [facility] Comment on above: Result Comment: Perc ent differential counts (%) should be interpreted in the context of the absolute cell counts (cells/uL). Performed By: #### 5 7021-8 #### BEVERLEY VORAMOTZNAVI L ([id number]) [facility] ([facility]) [address] [place] [address] Neutrophils/100 WBC (Bld) 71.6 % Normal 40.0-80.0 [facility] Comment on above: Performed By: #### 5 7021-8 #### BEVERLEY Poe ([id number]) [facility] ([facility]) [address] [place] [id number] Nucleated RBC/100 WBC (Bld) [Ratio] 0.0 /100 WBCs Normal 0.0-0.0 [facility] Comment on above: Performed By: #### 5 7021-8 #### BEVERLEY Poe ([id number]) [facility] ([facility]) [address] [place] [address] 96544 Platelets (Bld) [#/Vol] 123 x10*3/uL Low 150-450 [facility] Comment on above: Performed By: #### 5 7021-8 #### BEVERLEY Poe ([id number]) [facility] ([facility]) [address] [place] [address] 03598 RBC (Bld) [#/Vol] 2.65 x10*6/uL Low 4.00-5.20 [facility] Comment on above: Performed By: #### 5 7021-8 #### BEVERLEY Poe ([id number]) [facility] ([facility]) [address] [place] [address] 90441 WBC (Bld) [#/Vol] 3.5 x10*3/uL Low 4.4-11.3 [facility] Comment on above: Performed By: #### 5 7021-8 #### BEVERLEY Poe ([id number]) [facility] ([facility]) [address] [place] [address] 20153 Comprehensive metabolic 2000 panelon 09-15-2023 Albumin BCP dye [Mass/Vol] 3.0 g/dL Low 3.4 - 5.0 g/dL [facility] ALP [Catalytic activity/Vol] 47 U/L 33 - 136 U/L [facility] ALT With P-5'-P [Catalytic activity/Vol] 10 U/L 7 - 45 U/L [facility] Anion gap [Moles/Vol] 10 mmol/L 10 - 2 0 mmol/L [facility] AST With P-5'-P [Catalytic activity/Vol] 10 U/L 9 - 39 U/L [facility] Bilirubin [Mass/Vol] 0.6 mg/dL 0.0 - 1 .2 mg/dL [facility] Calcium [Mass/Vol] 8.8 mg/dL 8.6 - 10. 6 mg/dL [facility] Chloride [Moles/Vol] 100 mmol/L 98 - 10 7 mmol/L [facility] CO2 [Moles/Vol] 39 mmol/L High 21 - 32 mmol/L [facility] Creatinine [Mass/Vol] 0.45 mg/dL Low 0.50 - 1.05 mg/dL [facility] GFR/1.73 sq M.predicted MDRD (S/P/Bld) [Vol rate/Area] - PINF [facility] Glucose [Mass/Vol] 88 mg/dL 74 - 99 mg/dL [facility] Interpretation and review of laboratory results Abnormal [facility] Potassium [Moles/Vol] 4.2 mmol/L 3.5 - 5.3 mmol/L [facility] Protein [Mass/Vol] 6.1 g/dL Low 6.4 - 8.2 g/dL [facility] Sodium [Moles/Vol] 145 mmol/L 136 - 145 mmol/L [facility] Urea nitrogen [Mass/Vol] 13 mg/dL 6 - 23 mg/dL [facility] Albumin BCP dye [Mass/Vol] 3.0 g/dL Low 3.4-5.0 [facility] Comment on above: Performed By: #### 2 4323-8 #### BEVERLEY Poe ([id number]) [facility] ([facility]) [address] [place] [address] 26230 ALP [Catalytic activity/Vol] 47 U/L Normal 33-136 [facility] Comment on above: Performed By: #### 2 4323-8 #### BEVERLEY Poe ([id number]) [facility] ([facility]) [address] [place] [address] 91359 ALT With P-5'-P [Catalytic activity/Vol] 10 U/L Normal 7-45 [facility] Comment on above: Result Comment: Ирина ents treated with Sulfasalazine may generate falsely decreased results for ALT. Performed By: #### 2 4323-8 #### BEVERLEY Poe ([id number]) [facility] ([facility]) [address] [place] [address] Anion gap [Moles/Vol] 10 mmol/L Normal 10-20 [facility] Comment on above: Performed By: #### 2 4323-8 #### BEVERLEY Poe ([id number]) [facility] ([facility]) [address] [place] [address] AST With P-5'-P [Catalytic activity/Vol] 10 U/L Normal 9-39 [facility] Comment on above: Performed By: #### 2 4323-8 #### BEVERLEY Poe ([id number]) [facility] ([facility]) [id number] [place] [address]7280 Bilirubin [Mass/Vol] 0.6 mg/dL Normal 0.0-1.2 [facility] Comment on above: Performed By: #### 2 4323-8 #### BEVERLEY Poe ([id number]) [facility] ([facility]) [id number] [place] [address]37 Calcium [Mass/Vol] 8.8 mg/dL Normal 8.6-10.6 [facility] Comment on above: Performed By: #### 2 4323-8 #### BEVERLEY Poe ([id number]) [facility] ([facility]) [id number] [place] [address] 61198 Chloride [Moles/Vol] 100 mmol/L Normal 98-107 [facility] Comment on above: Performed By: #### 2 4323-8 #### BEVERLEY Poe ([id number]) [facility] ([facility]) [id number] [place] [address] 90663 CO2 [Moles/Vol] 39 mmol/L High 21-32 [facility] Comment on above: Performed By: #### 2 4323-8 #### BEVERLEY Poe ([id number]) [facility] ([facility]) [address] [place] [address] Creatinine [Mass/Vol] 0.45 mg/dL Low 0.50-1.05 [facility] Comment on above: Performed By: #### 2 4323-8 #### BEVERLEY Poe ([id number]) [facility] ([facility]) [id number] [place] [address] 26085 GFR/1.73 sq M.predicted MDRD (S/P/Bld) [Vol rate/Area] mL/min/{1.73_m2} Normal >60 [facility] Comment on above: Result Comment: Calc ulations of estimated GFR are performed using the 2020 CKD-EPI Study Refit equation without the race variable for the IDMS-Traceable creatinine methods. https://jasn.asnjournals.org/content//ASN.47730 10526 Performed By: #### 2 4323-8 #### BEVERLEY Poe ([id number]) [facility] ([facility]) [address] [place] [address] 10701 Glucose [Mass/Vol] 88 mg/dL Normal 74-99 [facility] Comment on above: Performed By: #### 2 4323-8 #### BEVERLEY Poe ([id number]) [facility] ([facility]) [address] [place] [address] Potassium [Moles/Vol] 4.2 mmol/L Normal 3.5-5.3 [facility] Comment on above: Performed By: #### 2 4323-8 #### BEVERLEY DODD L ([id number]) [facility] ([facility]) [address] [place] [address] Protein [Mass/Vol] 6.1 g/dL Low 6.4-8.2 [facility] Comment on above: Performed By: #### 2 4323-8 #### BEVERLEY DODD L ([id number]) [facility] ([facility]) [address] [place] [address] Sodium [Moles/Vol] 145 mmol/L Normal 136-145 [facility] Comment on above: Performed By: #### 2 4323-8 #### BEVERLEY Poe ([id number]) [facility] ([facility]) [address] [place] [address] Urea nitrogen [Mass/Vol] 13 mg/dL Normal 6-23 [facility] Comment on above: Performed By: #### 2 4323-8 #### BEVERLEY Poe ([id number]) [facility] ([facility]) [address] [place] [address] 30141 Glucose Glucometer (BldC) [M ass/Vol]Ordered By: Calvin Hester on 09-15-2023 Glucose [Mass/Vol] 95 mg/dL 74-106 [facility] Comment on above: MANAGEMENT OF PATIEN T CARE PER NURSING PROTOCOL Ketones Test strip Ql (U)Ord ered By: Calvin Hester on 09-15-2023 Ketones Ql (U) Negative Negative [facility] - Microbiology an d Antimicrobial susceptibilityOrdered By: Calvin Hester on 09-15-2023 Bacteria identified Cx Nom (Bld) No growth in 5 days. [facility] Magnesiumon 09-15-2023 Magnesium [Mass/Vol] 2.13 mg/dL 1.60 - 2.40 mg/dL [facility] Magnesium [Mass/Vol] 2.13 mg/dL Normal 1.60-2.40 [facility] Comment on above: Performed By: #### 1 9123-9 #### BEVERLEY Poe ([id number]) [facility] ([facility]) [id number] [place] [address] 30196 Magnesium [Mass/Vol]on 09-15 Interpretation and review of laboratory results Normal [facility] Mucus LM Ql (Urine sed)Order ed By: Calvin Hester on 09-15-2023 Mucus Ql (Urine sed) 0 SEEN /hpf [facility] Nitrite Test strip Ql (U)Ord ered By: Calvin Hester on 09-15-2023 Nitrite Ql (U) Positive Negative [facility] No Panel Informationon 09-15 [facility] PT and aPTT panel Coag (PPP) on 09-15-2023 aPTT Coag (PPP) [Time] 24 s Low Un [facility] INR Coag (PPP) [Relative time] 1.0 {INR} 0.9 - 1.1 [facility] Interpretation and review of laboratory results Abnormal [facility] PT Coag (PPP) [Time] 11.6 s [facility] aPTT Coag (PPP) [Time] 24 s Low 27-38 Un [facility] Comment on above: Order Comment: The A PTT is no longer used for monitoring Unfractionated Heparin Therapy. For monitoring Heparin Therapy, use the Heparin Assay. Performed By: #### 3 4529-8 #### BEVERLEY Poe ([id number]) [facility] ([facility]) [address] [place] [address] 86173 INR Coag (PPP) [Relative time] 1.0 Normal 0.9-1.1 [facility] Comment on above: Order Comment: The A PTT is no longer used for monitoring Unfractionated Heparin Therapy. For monitoring Heparin Therapy, use the Heparin Assay. Performed By: #### 3 4529-8 #### BEVERLEY Poe ([id number]) [facility] ([facility]) [address] [place] [address] 29826 PT Coag (PPP) [Time] 11.6 s Normal 9.8-12.8 [facility] Comment on above: Order Comment: The A PTT is no longer used for monitoring Unfractionated Heparin Therapy. For monitoring Heparin Therapy, use the Heparin Assay. Performed By: #### 3 4529-8 #### BEVERLEY Poe ([id number]) [facility] ([facility]) [address] [place] [address] 37512 Protein Test strip Ql (U)Ord ered By: Calvin Hester on 09-15-2023 Protein Ql (U) 30 mg/dl Negative [facility] Squamous epithelial cells de tection in urine sediment by light microscopyOrdered By: Calvin Hester on 09-15-2023 Epithelial cells.squamous LM Ql (Urine sed) 0 SEEN /hpf 5-10 [facility] Urine blood detectionOrdered By: Calvin Hester on 09-15-2023 RBC Ql (U) 50 /ul Negative [facility] RBC Ql (U) 0-5 SEEN /hpf 0-5 [facility] Urine clarityOrdered By: Farooq Hester on 09-15-2023 Clarity (U) Clear Clear [facility] Urine color determinationOrd ered By: Calvin Hester on 09-15-2023 Color (U) Yellow Yellow [facility] Urine glucose detectionOrder ed By: Calvin Hester on 09-15-2023 Glucose Ql (U) Normal mg/dl Normal [facility] Urine leukocyte esterase det ection by dipstickOrdered By: Calvin Hester on 09-15-2023 Leukocyte esterase Test strip Ql (U) 100 /ul Negative [facility] Urine pHOrdered By: Calvin solorzano on 09-15-2023 pH (U) 6.0 [pH] 5.0 - 8.0 [facility] Urine sediment bacteria coun t by microscopy (number/high power field)Ordered By: Calvin Hester on 09-15-2023 Bacteria LM.HPF (Urine sed) [#/Area] 1 /[HPF] None Seen [facility] Urine specific gravity measu rementOrdered By: Calvin Hester on 09-15-2023 Specific gravity (U) [Rel density] 1.010 1.002-1.030 [facility] Urobilinogen Auto test strip Ql (U)Ordered By: Calvin eHster on 09-15-2023 Urobilinogen Ql (U) 1 mg/dl Normal [facility] Absolute lymphocyte countOrd ered By: Calvin Hester on 09-14-2023 Lymphocytes Auto (Unsp spec) [#/Vol] 0.70 10*3/uL 0.83-4.51 [facility] Basophil percentageOrdered B y: Calvin Hester on 09-14-2023 Basophils/100 WBC (Bld) 0.3 % 0-1 [facility] Bilirubin [Mass/Vol] 0.40 mg/dL 0.20-1.00 [facility] Comment on above: For patients on eltr ombopag therapy, use of Dimension Strang TBIL is not recommended. Chloride [Moles/Vol] 101 mmol/L 98-107 [facility] Eosinophils/100 WBC (Bld) 0.8 % 0-5 [facility] Glucose [Mass/Vol] 134 mg/dL 74-106 [facility] Comment on above: Fasting Glucose resu lt greater than or equal to 126 mg/dL suggests DIABETES MELLITUS per A.D.A. criteria. Neutrophils (Bld) [#/Vol] 2.5 10*3/uL 2.0-7.7 [facility] Neutrophils/100 WBC (Bld) 70.5 % 47-70 [facility] Potassium [Moles/Vol] 4.0 mmol/L 3.5-5.1 [facility] Protein [Mass/Vol] 6.9 g/dL 6.4-8.2 [facility] Sodium [Moles/Vol] 144 mmol/L 136-145 [facility] WBC (Bld) [#/Vol] 3.6 10*3/uL 4.4-11.0 [facility] Blood erythrocytes count (nu mber/volume)Ordered By: Calvin Hester on 09-14-2023 RBC (Bld) [#/Vol] 2.80 10*6/uL 4.2-5.4 [facility] Blood hemoglobin measurement (mass/volume)Ordered By: Calvin Hester on 09-14-2023 Hemoglobin (Bld) [Mass/Vol] 8.3 g/dL 12.0-15.0 [facility] Blood lymphocytes/100 leukoc ytesOrdered By: Calvin Hester on 09-14-2023 Lymphocytes/100 WBC (Bld) 19.5 % 19-41 [facility] Blood monocytes/100 leukocyt esOrdered By: Calvin Hester on 09-14-2023 Monocytes/100 WBC (Bld) 7.8 % 0-10 [facility] Blood platelet mean volumeOr dered By: Calvin Hester on 09-14-2023 Platelet mean volume (Bld) [Entitic vol] 8.8 fL 6.2-12.0 [facility] Determination of erythrocyte mean corpuscular volume (MCV)Ordered By: Calvin Hester on 09-14-2023 MCV (RBC) [Entitic vol] 102.9 fL 81-99 [facility] Direct bilirubinOrdered By: Calvin Hester on 09-14-2023 Bilirubin.direct [Mass/Vol] 0.09 mg/dL 0.00-0.30 [facility] Hematocrit Auto (Bld) [Volum e fraction]Ordered By: Calvin Hester on 09-14-2023 Hematocrit (Bld) [Volume fraction] 28.8 % 37-47 [facility] INR in Blood by Coagulation assayOrdered By: Calvin Hester on 09-14-2023 INR Coag (Bld) [Relative time] 1.0 {INR} [facility] - Chemistry and C hemistry - challengeOrdered By: Calvin Hester on 09-14-2023 ALP [Catalytic activity/Vol] 66 U/L 45-117 [facility] ALT [Catalytic activity/Vol] 18 U/L 13-56 [facility] CO2 [Moles/Vol] 41.0 mmol/L 21.0-32.0 [facility] Globulin (S) [Mass/Vol] 4.4 g/dL 2.2-4.2 [facility] Lipase [Catalytic activity/Vol] 24 U/L 13-75 [facility] Comment on above: Please note:LIPASE r evised reference range effective 23. New Lipase methodology. Expected to produce lower values than the previous assay method. NEW Reference Range: 13 - 75 U/L Urea nitrogen/Creatinine [Mass ratio] 25.5 mg/mg 10-20 [facility] - CoagulationOrde red By: Calvin Hester on 09-14-2023 aPTT Coag (Bld) [Time] 29.8 s 24.1-36.2 [facility] PT Coag (PPP) [Time] 13.0 s 11.7-14.9 [facility] - Hematology and Cell countsOrdered By: Calvin Hester on 09-14-2023 Erythrocyte distribution width (RBC) [Entitic vol] 53.0 fL 35.1-43.9 [facility] Erythrocyte distribution width (RBC) [Ratio] 14.1 % 11.6-14.6 [facility] Immature granulocytes/100 WBC (Bld) 1.100 % 0.0-0.9 [facility] Comment on above: IG% - Immature Granu locytes (promyelocytes, myelocytes and metamyelocytes) > 1% indicates that a LEFT SHIFT is Present. MCH (RBC) [Entitic mass] 29.6 pg 27.0-32.0 [facility] Nucleated RBC/100 WBC (Bld) [Ratio] 0 % 0-5 [facility] MCHC Auto (RBC) [Mass/Vol]Or dered By: Calvin Hester on 09-14-2023 MCHC (RBC) [Mass/Vol] 28.8 g/dL 32-36 [facility] No Panel InformationOrdered By: Calvin Hester on 09-14-2023 Estimated Creatinine Clearance Calc 54.98 ml/min [facility] Estimated GFR (MDRD) Amer 87 mL/min >60 [facility] Comment on above: GFR Calc Estimated GFR (MDRD) Non-Af Amer 72 mL/min >60 [facility] Comment on above: Non- GFR Calc Platelets bldOrdered By: Farooq Hester on 09-14-2023 Platelets (Bld) [#/Vol] 109 10*3/uL 150-450 [facility] Serum or plasma albumin celina urement (mass/volume)Ordered By: Calvin Hester on 09-14-2023 Albumin [Mass/Vol] 2.5 g/dL 3.2-5.0 [facility] Serum or plasma calcium celina urement (mass/volume)Ordered By: Calvin Hester on 09-14-2023 Calcium [Mass/Vol] 9.0 mg/dL 8.5-10.1 [facility] Serum or plasma creatinine m easurement (mass/volume)Ordered By: Calvin Hester on 09-14-2023 Creatinine [Mass/Vol] 0.82 mg/dL 0.55-1.02 [facility] Comment on above: The validity of the calculated GFR & GFRAA in patients over 70 years has not been determined. Clinical correlation is essential. Serum or plasma urea nitroge n measurement (mass/volume)Ordered By: Calvin Hester on 09-14-2023 Urea nitrogen [Mass/Vol] 21 mg/dL 7-18 [facility] Thin prep Papanicolaou smear with manual screeningOrdered By: Calvin Hester on 09-14-2023 Thin prep Papanicolaou smear with manual screening 10 U/L 15-37 [facility] Thin prep Papanicolaou smear with manual screening 2 5-15 [facility] Basophil percentageOrdered B y: Jonathan Dillard on 09-13-2023 Bilirubin [Mass/Vol] 0.30 mg/dL 0.20-1.00 [facility] Comment on above: For patients on eltr ombopag therapy, use of Dimension Strang TBIL is not recommended. Chloride [Moles/Vol] 103 mmol/L 98-107 [facility] Glucose [Mass/Vol] 111 mg/dL 74-106 [facility] Comment on above: Fasting Glucose resu lt from 100 to 125 mg/dL suggests IMPAIRED HOMEOSTASIS per A.D.A. criteria. Potassium [Moles/Vol] 3.8 mmol/L 3.5-5.1 [facility] Protein [Mass/Vol] 6.6 g/dL 6.4-8.2 [facility] Sodium [Moles/Vol] 145 mmol/L 136-145 [facility] WBC (Bld) [#/Vol] 2.8 10*3/uL 4.4-11.0 [facility] Blood erythrocytes count (nu mber/volume)Ordered By: Jonathan Dillard on 09-13-2023 RBC (Bld) [#/Vol] 2.62 10*6/uL 4.2-5.4 [facility] Blood hemoglobin measurement (mass/volume)Ordered By: Jonathan Dillard on 09-13-2023 Hemoglobin (Bld) [Mass/Vol] 8.0 g/dL 12.0-15.0 [facility] Blood platelet mean volumeOr dered By: Jonathan Dillard on 09-13-2023 Platelet mean volume (Bld) [Entitic vol] 8.6 fL 6.2-12.0 [facility] Determination of erythrocyte mean corpuscular volume (MCV)Ordered By: Jonathan Dillard on 09-13-2023 MCV (RBC) [Entitic vol] 103.4 fL 81-99 [facility] Hematocrit Auto (Bld) [Volum e fraction]Ordered By: Jonathan Dillard on 09-13-2023 Hematocrit (Bld) [Volume fraction] 27.1 % 37-47 [facility] - Chemistry and C hemistry - challengeOrdered By: Jonathan Dillard on 09-13-2023 ALP [Catalytic activity/Vol] 58 U/L 45-117 [facility] ALT [Catalytic activity/Vol] 18 U/L 13-56 [facility] CO2 [Moles/Vol] 41.0 mmol/L 21.0-32.0 [facility] Globulin (S) [Mass/Vol] 4.2 g/dL 2.2-4.2 [facility] Urea nitrogen/Creatinine [Mass ratio] 34.5 mg/mg 10-20 [facility] - Hematology and Cell countsOrdered By: Jonathan Dillard on 09-13-2023 Erythrocyte distribution width (RBC) [Entitic vol] 54.3 fL 35.1-43.9 [facility] Erythrocyte distribution width (RBC) [Ratio] 14.4 % 11.6-14.6 [facility] MCH (RBC) [Entitic mass] 30.5 pg 27.0-32.0 [facility] MCHC Auto (RBC) [Mass/Vol]Or dered By: Jonathan Dillard on 09-13-2023 MCHC (RBC) [Mass/Vol] 29.5 g/dL 32-36 [facility] Comment on above: Delta: 27.9 on 09/08 No Panel InformationOrdered By: Jonathan Dillard on 09-13-2023 Estimated GFR (MDRD) Amer 148 mL/min >60 [facility] Comment on above: GFR Calc Estimated GFR (MDRD) Non-Af Amer 122 mL/min >60 [facility] Comment on above: Non- GFR Calc Platelets bldOrdered By: Mervat Dillard on 09-13-2023 Platelets (Bld) [#/Vol] 103 10*3/uL 150-450 [facility] Serum or plasma albumin celina urement (mass/volume)Ordered By: Jonathan Dillard on 09-13-2023 Albumin [Mass/Vol] 2.4 g/dL 3.2-5.0 [facility] Serum or plasma albumin/glob ulin mass ratioOrdered By: Jonathan Dillard on 09-13-2023 Albumin/Globulin [Mass ratio] 0.6 {ratio} 0.9-2.4 [facility] Serum or plasma calcium celina urement (mass/volume)Ordered By: Jonathan Dillard on 09-13-2023 Calcium [Mass/Vol] 8.7 mg/dL 8.5-10.1 [facility] Serum or plasma creatinine m easurement (mass/volume)Ordered By: Jonathan Dillard on 09-13-2023 Creatinine [Mass/Vol] 0.52 mg/dL 0.55-1.02 [facility] Comment on above: The validity of the calculated GFR & GFRAA in patients over 70 years has not been determined. Clinical correlation is essential. Serum or plasma urea nitroge n measurement (mass/volume)Ordered By: Jonathan Dillard on 09-13-2023 Urea nitrogen [Mass/Vol] 18 mg/dL 7-18 [facility] Thin prep Papanicolaou smear with manual screeningOrdered By: Jonathan Dillard on 09-13-2023 Thin prep Papanicolaou smear with manual screening 11 U/L 15-37 [facility] Thin prep Papanicolaou smear with manual screening 1 5-15 [facility] Culture, urineOrdered By: Chloe Jeffries on 09-09-2023 Bacteria identified Cx Nom (U) Mixed Gram Pos & Gram Neg Org [facility] Cytology report of Body flui d Cyto stainOrdered By: Alecia Navarrete on 09-09-2023 Cytology report Cyto stain Doc (Body fld) SEE PATHOLOGY REPORT [facility] Comment on above: Specimen submitted t o Anatomical Pathology Department for testing. Absolute lymphocyte countOrd ered By: Delfin Jeffries on 09-08-2023 Lymphocytes Auto (Unsp spec) [#/Vol] 0.60 10*3/uL 0.83-4.51 [facility] Basophil percentageOrdered B y: Delfin Jeffries on 09-08-2023 Basophil percentage >100 SEEN /hpf 0-5 [facility] Comment on above: Microscopic field is filled. Other elements may be obscured. Basophil percentage 3.4 mg/dL 2.5-4.9 [facility] Basophils/100 WBC (Bld) 0.2 % 0-1 [facility] Bilirubin [Mass/Vol] 0.40 mg/dL 0.20-1.00 [facility] Comment on above: For patients on eltr ombopag therapy, use of Dimension Strang TBIL is not recommended. Chloride [Moles/Vol] 104 mmol/L 98-107 [facility] Eosinophils/100 WBC (Bld) 0.7 % 0-5 [facility] Glucose [Mass/Vol] 163 mg/dL 74-106 [facility] Comment on above: Fasting Glucose resu lt greater than or equal to 126 mg/dL suggests DIABETES MELLITUS per A.D.A. criteria. Neutrophils (Bld) [#/Vol] 3.5 10*3/uL 2.0-7.7 [facility] Neutrophils/100 WBC (Bld) 78.8 % 47-70 [facility] Potassium [Moles/Vol] 3.8 mmol/L 3.5-5.1 [facility] Protein [Mass/Vol] 7.1 g/dL 6.4-8.2 [facility] Sodium [Moles/Vol] 143 mmol/L 136-145 [facility] WBC (Bld) [#/Vol] 4.5 10*3/uL 4.4-11.0 [facility] Bilirubin Test strip Ql (U)O rdered By: Delfin Jeffries on 09-08-2023 Bilirubin Ql (U) Negative Negative [facility] Blood erythrocytes count (nu mber/volume)Ordered By: Delfin Jeffries on 09-08-2023 RBC (Bld) [#/Vol] 3.10 10*6/uL 4.2-5.4 [facility] Blood hemoglobin measurement (mass/volume)Ordered By: Delfin Jeffries on 09-08-2023 Hemoglobin (Bld) [Mass/Vol] 9.0 g/dL 12.0-15.0 [facility] Blood lymphocytes/100 leukoc ytesOrdered By: Delfin Jeffries on 09-08-2023 Lymphocytes/100 WBC (Bld) 13.4 % 19-41 [facility] Blood manual differential co mment interpretation (narrative result)Ordered By: Delfin Jeffries on 09-08-2023 Manual differential comment Ajit (Bld) [Interp] SCANNED [facility] Blood monocytes/100 leukocyt esOrdered By: Delfin Jeffries on 09-08-2023 Monocytes/100 WBC (Bld) 6.5 % 0-10 [facility] Blood platelet mean volumeOr dered By: Delfin Jeffries on 09-08-2023 Platelet mean volume (Bld) [Entitic vol] 8.1 fL 6.2-12.0 [facility] Culture, urineOrdered By: Chloe Jeffries on 09-08-2023 Bacteria identified Cx Nom (U) Mixed Gram Pos & Gram Neg Org [facility] Determination of erythrocyte mean corpuscular volume (MCV)Ordered By: Delfin Jeffries on 09-08-2023 MCV (RBC) [Entitic vol] 104.2 fL 81-99 [facility] Erythrocyte sedimentation ra teOrdered By: Delfin Jeffries on 09-08-2023 ESR (Bld) [Velocity] 43 mm/h 0-30 [facility] Hematocrit Auto (Bld) [Volum e fraction]Ordered By: Delfin Jeffries on 09-08-2023 Hematocrit (Bld) [Volume fraction] 32.3 % 37-47 [facility] Hemoglobin in reticulocytes (mass per reticulocyte)Ordered By: Delfin Jeffries on 09-08-2023 Hemoglobin (Reticulocytes) [Entitic mass] 26.4 pg 30-35 [facility] Iron measurement (mass/mass) Ordered By: Delfin Jeffries on 09-08-2023 Iron (Unsp spec) [Mass/Mass] 32 ug/dL 50-170 [facility] Ketones Test strip Ql (U)Ord ered By: Delfin Jeffries on 09-08-2023 Ketones Ql (U) 5 mg/dl Negative [facility] Laboratory - Chemistry and C hemistry - challengeOrdered By: Delfin Jeffries on 09-08-2023 ALP [Catalytic activity/Vol] 69 U/L 45-117 [facility] ALT [Catalytic activity/Vol] 17 U/L 13-56 [facility] CO2 [Moles/Vol] 38.0 mmol/L 21.0-32.0 [facility] Cobalamin (Vitamin B12) [Mass/Vol] 1331 pg/mL 211-911 [facility] Globulin (S) [Mass/Vol] 4.5 g/dL 2.2-4.2 [facility] Magnesium [Mass/Vol] 2.1 mg/dL 1.6-2.6 [facility] Urea nitrogen/Creatinine [Mass ratio] 31.6 mg/mg 10-20 [facility] Laboratory - Hematology and Cell countsOrdered By: Delfin Jeffries on 09-08-2023 Erythrocyte distribution width (RBC) [Entitic vol] 55.1 fL 35.1-43.9 [facility] Erythrocyte distribution width (RBC) [Ratio] 14.6 % 11.6-14.6 [facility] Immature granulocytes/100 WBC (Bld) 0.400 % 0.0-0.9 [facility] Comment on above: IG% - Immature Granu locytes (promyelocytes, myelocytes and metamyelocytes) > 1% indicates that a LEFT SHIFT is Present. MCH (RBC) [Entitic mass] 29.0 pg 27.0-32.0 [facility] Nucleated RBC/100 WBC (Bld) [Ratio] 0 % 0-5 [facility] MCHC Auto (RBC) [Mass/Vol]Or dered By: Delfin Jeffries on 09-08-2023 MCHC (RBC) [Mass/Vol] 27.9 g/dL 32-36 [facility] Mucus LM Ql (Urine sed)Order ed By: Delfin Jeffries on 09-08-2023 Mucus Ql (Urine sed) 0 SEEN /hpf [facility] Nitrite Test strip Ql (U)Ord ered By: Delfin Jeffries on 09-08-2023 Nitrite Ql (U) Negative Negative [facility] No Panel InformationOrdered By: Delfin Jeffreis on 09-08-2023 Estimated Creatinine Clearance Calc 43.27 ml/min [facility] Estimated GFR (MDRD) Amer 118 mL/min >60 [facility] Comment on above: GFR Calc Estimated GFR (MDRD) Non-Af Amer 98 mL/min >60 [facility] Comment on above: Non- GFR Calc Immature Reticulocyte Fraction 17.60 % 3.00-15.90 [facility] Reticulocyte Count 2.46 % 0.5-1.5 [facility] Total Iron Binding Capacity 216 ug/dL 250-450 [facility] Platelets bldOrdered By: Luciano Jeffries on 09-08-2023 Platelets (Bld) [#/Vol] 113 10*3/uL 150-450 [facility] Protein Test strip Ql (U)Ord ered By: Delfin Jeffries on 09-08-2023 Protein Ql (U) 500 mg/dl Negative [facility] Serum or plasma C reactive p rotein measurement (mass/volume)Ordered By: Delfin Jeffries on 09-08-2023 CRP [Mass/Vol] 81.40 mg/L 0.0-3.0 [facility] Comment on above: C-Reactive Protein ( CRP) provides useful information for thediagnosis, therapy and monitoring of inflammatory processesand associated diseases. For the evaluation of Relative Riskfor Cardiovascular Disease, a High Sensitivity CRP (HSCRP)should be ordered. Serum or plasma albumin celina urement (mass/volume)Ordered By: Delfin Jeffries on 09-08-2023 Albumin [Mass/Vol] 2.6 g/dL 3.2-5.0 [facility] Serum or plasma albumin/glob ulin mass ratioOrdered By: Delfin Jeffries on 09-08-2023 Albumin/Globulin [Mass ratio] 0.6 {ratio} 0.9-2.4 [facility] Serum or plasma calcium celina urement (mass/volume)Ordered By: Delfin Jeffries on 09-08-2023 Calcium [Mass/Vol] 8.7 mg/dL 8.5-10.1 [facility] Serum or plasma creatinine m easurement (mass/volume)Ordered By: Delfin Jeffries on 09-08-2023 Creatinine [Mass/Vol] 0.63 mg/dL 0.55-1.02 [facility] Comment on above: The validity of the calculated GFR & GFRAA in patients over 70 years has not been determined. Clinical correlation is essential. Serum or plasma ferritin carter surement (mass/volume)Ordered By: Delfin Jeffries on 09-08-2023 Ferritin [Mass/Vol] 243 ng/mL 8-252 [facility] Serum or plasma folate measu rement (mass/volume)Ordered By: Delfin Jeffries on 09-08-2023 Folate [Mass/Vol] 84.50 ng/mL 3.1-55.4 [facility] Serum or plasma iron saturat ion measurement (mass fraction)Ordered By: Delfin Jeffries on 09-08-2023 Iron saturation [Mass fraction] 14.8 % 15.0-55.0 [facility] Serum or plasma urea nitroge n measurement (mass/volume)Ordered By: Delfin Jeffries on 09-08-2023 Urea nitrogen [Mass/Vol] 20 mg/dL 7-18 [facility] Squamous epithelial cells de tection in urine sediment by light microscopyOrdered By: Delfin Jeffries on 09-08-2023 Epithelial cells.squamous LM Ql (Urine sed) 0 SEEN /hpf 5-10 [facility] Thin prep Papanicolaou smear with manual screeningOrdered By: Delfin Jeffries on 09-08-2023 Thin prep Papanicolaou smear with manual screening 15 U/L 15-37 [facility] Thin prep Papanicolaou smear with manual screening 1 5-15 [facility] Urine blood detectionOrdered By: Delfin Jeffries on 09-08-2023 RBC Ql (U) 250 /ul Negative [facility] RBC Ql (U) > 100 SEEN /hpf 0-5 [facility] Comment on above: Microscopic field is filled. Other elements may be obscured. Urine clarityOrdered By: Luciano Jeffries on 09-08-2023 Clarity (U) Cloudy Clear [facility] Urine color determinationOrd ered By: Delfin Jeffries on 09-08-2023 Color (U) Brown Yellow [facility] Urine glucose detectionOrder ed By: Delfin Jeffries on 09-08-2023 Glucose Ql (U) Normal mg/dl Normal [facility] Urine leukocyte esterase det ection by dipstickOrdered By: Delfin Jeffries on 09-08-2023 Leukocyte esterase Test strip Ql (U) 100 /ul Negative [facility] Urine pHOrdered By: Delfin elizabeth on 09-08-2023 pH (U) 5.0 [pH] 5.0 - 8.0 [facility] Urine sediment bacteria coun t by microscopy (number/high power field)Ordered By: Delfin Jeffries on 09-08-2023 Bacteria LM.HPF (Urine sed) [#/Area] 0 /[HPF] None Seen [facility] Urine specific gravity measu rementOrdered By: Delfin Jeffries on 09-08-2023 Specific gravity (U) [Rel density] 1.020 1.002-1.030 [facility] Urobilinogen Auto test strip Ql (U)Ordered By: Delfin Jeffries on 09-08-2023 Urobilinogen Ql (U) Normal mg/dl Normal [facility] Basophil percentageOrdered B y: Jonathan Dillard on 08-31-2023 Basophil percentage >100 SEEN /hpf 0-5 [facility] Chloride [Moles/Vol] 104 mmol/L 98-107 [facility] Glucose [Mass/Vol] 110 mg/dL 74-106 [facility] Comment on above: Fasting Glucose resu lt from 100 to 125 mg/dL suggests IMPAIRED HOMEOSTASIS per A.D.A. criteria. Potassium [Moles/Vol] 3.9 mmol/L 3.5-5.1 [facility] Sodium [Moles/Vol] 146 mmol/L 136-145 [facility] WBC (Bld) [#/Vol] 3.7 10*3/uL 4.4-11.0 [facility] Bilirubin Test strip Ql (U)O rdered By: Jonathan Dillard on 08-31-2023 Bilirubin Ql (U) Negative Negative [facility] Blood erythrocytes count (nu mber/volume)Ordered By: Jonathan Dillard on 08-31-2023 RBC (Bld) [#/Vol] 2.85 10*6/uL 4.2-5.4 [facility] Blood hemoglobin measurement (mass/volume)Ordered By: Jonathan Dillard on 08-31-2023 Hemoglobin (Bld) [Mass/Vol] 8.5 g/dL 12.0-15.0 [facility] Blood manual differential co mment interpretation (narrative result)Ordered By: Jonathan Dillard on 08-31-2023 Manual differential comment Ajit (Bld) [Interp] COMMENT [facility] Comment on above: PLT POPULATION - MOD ERATELY DECREASED. Blood platelet mean volumeOr dered By: Jonathan Dillard on 08-31-2023 Platelet mean volume (Bld) [Entitic vol] 9.6 fL 6.2-12.0 [facility] Culture, urineOrdered By: Higuera on 08-31-2023 Bacteria identified Cx Nom (U) Mixed Gram Pos & Gram Neg Org [facility] Determination of erythrocyte mean corpuscular volume (MCV)Ordered By: Jonathan Dillard on 08-31-2023 MCV (RBC) [Entitic vol] 102.8 fL 81-99 [facility] Hematocrit Auto (Bld) [Volum e fraction]Ordered By: Jonathan Dillard on 08-31-2023 Hematocrit (Bld) [Volume fraction] 29.3 % 37-47 [facility] Ketones Test strip Ql (U)Ord ered By: Jonathan Dillard on 08-31-2023 Ketones Ql (U) Negative Negative [facility] Laboratory - Chemistry and C hemistry - challengeOrdered By: Jonathan Dillard on 08-31-2023 CO2 [Moles/Vol] 39.0 mmol/L 21.0-32.0 [facility] Urea nitrogen/Creatinine [Mass ratio] 37.5 mg/mg 10-20 [facility] Laboratory - Hematology and Cell countsOrdered By: Jonathan Dillard on 08-31-2023 Erythrocyte distribution width (RBC) [Entitic vol] 54.3 fL 35.1-43.9 [facility] Erythrocyte distribution width (RBC) [Ratio] 14.4 % 11.6-14.6 [facility] MCH (RBC) [Entitic mass] 29.8 pg 27.0-32.0 [facility] MCHC Auto (RBC) [Mass/Vol]Or dered By: Jonathan Dillard on 08-31-2023 MCHC (RBC) [Mass/Vol] 29.0 g/dL 32-36 [facility] Mucus LM Ql (Urine sed)Order ed By: Jonathan Dillard on 08-31-2023 Mucus Ql (Urine sed) 0 SEEN /hpf [facility] Nitrite Test strip Ql (U)Ord ered By: Jonathan Dillard on 08-31-2023 Nitrite Ql (U) Negative Negative [facility] No Panel InformationOrdered By: Jonathan Dillard on 08-31-2023 Estimated GFR (MDRD) Amer 153 mL/min >60 [facility] Comment on above: GFR Calc Estimated GFR (MDRD) Non-Af Amer 127 mL/min >60 [facility] Comment on above: Non- GFR Calc Platelets bldOrdered By: Mervat Dillard on 08-31-2023 Platelets (Bld) [#/Vol] 96 10*3/uL 150-450 [facility] Protein Test strip Ql (U)Ord ered By: Jonathan Dillard on 08-31-2023 Protein Ql (U) 100 mg/dl Negative [facility] Serum or plasma calcium celina urement (mass/volume)Ordered By: Jonathan Dillard on 08-31-2023 Calcium [Mass/Vol] 9.5 mg/dL 8.5-10.1 [facility] Serum or plasma creatinine m easurement (mass/volume)Ordered By: Jonathan Dillard on 08-31-2023 Creatinine [Mass/Vol] 0.51 mg/dL 0.55-1.02 [facility] Comment on above: The validity of the calculated GFR & GFRAA in patients over 70 years has not been determined. Clinical correlation is essential. Serum or plasma urea nitroge n measurement (mass/volume)Ordered By: Jonathan Dillard on 08-31-2023 Urea nitrogen [Mass/Vol] 19 mg/dL 7-18 [facility] Squamous epithelial cells de tection in urine sediment by light microscopyOrdered By: Jonathan Dillard on 08-31-2023 Epithelial cells.squamous LM Ql (Urine sed) 0 SEEN /hpf 5-10 [facility] Thin prep Papanicolaou smear with manual screeningOrdered By: Jonathan Dillard on 08-31-2023 Thin prep Papanicolaou smear with manual screening 3 5-15 [facility] Urine blood detectionOrdered By: Jonathan Dillard on 08-31-2023 RBC Ql (U) 250 /ul Negative [facility] RBC Ql (U) > 100 SEEN /hpf 0-5 [facility] Urine clarityOrdered By: Mervat Dillard on 08-31-2023 Clarity (U) Cloudy Clear [facility] Urine color determinationOrd ered By: Jonathan Dillard on 08-31-2023 Color (U) Yellow Yellow [facility] Urine glucose detectionOrder ed By: Jonathan Dillard on 08-31-2023 Glucose Ql (U) Normal mg/dl Normal [facility] Urine leukocyte esterase det ection by dipstickOrdered By: Jonathan Dillard on 08-31-2023 Leukocyte esterase Test strip Ql (U) 500 /ul Negative [facility] Urine pHOrdered By: Jonathan ramirez on 08-31-2023 pH (U) 6.0 [pH] 5.0 - 8.0 [facility] Urine sediment bacteria coun t by microscopy (number/high power field)Ordered By: Jonathan Dillard on 08-31-2023 Bacteria LM.HPF (Urine sed) [#/Area] 2 /[HPF] None Seen [facility] Urine specific gravity measu rementOrdered By: Jonathan Dillard on 08-31-2023 Specific gravity (U) [Rel density] 1.015 1.002-1.030 [facility] Urobilinogen Auto test strip Ql (U)Ordered By: Jonathan Dillard on 08-31-2023 Urobilinogen Ql (U) Normal mg/dl Normal [facility] Culture, urineOrdered By: Higuera on 08-17-2023 Bacteria identified Cx Nom (U) Mixed Gram Pos & Gram Neg Org [facility] XR BARIUM ENEMA COMPLETEon 1 XR BARIUM ENEMA COMPLETE ORIGINAL EXAMINATION: BARIUM ENEMA08/17/2023 12:07 pm BARIUM ENEMA TECHNIQUE: Fluoroscopic time: 257 seconds Total dose (Reference Air Kerma): 309.70 MGy A double-contrast barium enema was attempted initially. The patient was unable to tolerate distension with the barium and also has significantly limited mobility which precludes a satisfactory double-contrast study. The study was then converted to a single contrast examination. A small amount of air was also insufflated during the study. Barium was advanced with some difficulty into the right-sided colon. It is uncertain if the entire right-sided colon and cecum are adequately opacified, no reflux into the ileum is seen. Limited overhead radiographs are obtained, again due to limited patient mobility. COMPARISON: None HISTORY: ORDERING SYSTEM PROVIDED HISTORY: Reason for Exam: DIVERTICULITIS, suspected sigmoid stricture, unable to complete colonoscopy FINDINGS: Preliminary abdominal radiograph shows nonobstructive bowel gas pattern. No significant stool burden. Degenerative changes in the hips and spine. Left mid abdominal 4 mm calcification insert location. The contrast study shows no fixed narrowing in the rectum and sigmoid region. In the distal descending colon there is an area of persistent irregular narrowing of the colonic lumen. There is some shouldering of this lesion and distortion of mucosal folds. Multiple diverticula are seen in this region also and there is mild intravasation of contrast into the colonic wall that can be seen with diverticular disease. No extraluminal extension of contrast is appreciated. The length of the stenotic segment is about 6 cm. There is a questionable 2nd tandem lesion just proximal to this area of narrowing but this does not seem to be persistent and is only seen on some of the images perhaps artifactual area of under distension. The remainder of the colon is not adequately evaluated due to overlapping and density of contrast. No other fixed narrowing is appreciated. No post evacuation images. IMPRESSION: Limited essentially single contrast study. There is a persistent irregular narrowing in the distal descending colon region as described. Uncertain if this is from inflammatory process such as diverticulitis or neoplasm. Interpreted by: Levi Jimenez MD Preliminary Report By: Levi Jimenez MD Electronically signed By Levi Jimenez MD Dictated Date: 08/17/2023 3:39:39 PM Prelim Date: 08/17/2023 3:50:07 PM Sign Date: 08/17/2023 3:50:07 PM Ordering Provider: MARK JEREZ [facility] ([place]) Basophil percentageOrdered B y: Jonathan Dillard on 08-16-2023 Basophil percentage 0-5 SEEN /hpf 0-5 [facility] Bilirubin Test strip Ql (U)O rdered By: Jonathan Dillard on 08-16-2023 Bilirubin Ql (U) Negative Negative [facility] Culture, urineOrdered By: Higuera on 08-16-2023 Bacteria identified Cx Nom (U) Mixed Gram Pos & Gram Neg Org [facility] Hyaline casts LM.LPF (Urine sed) [#/Area]Ordered By: Jonathan Dillard on 08-16-2023 Hyaline casts (Urine sed) [#/Area] 5 /[LPF] 0-5 [facility] Ketones Test strip Ql (U)Ord ered By: Jonathan Dillard on 08-16-2023 Ketones Ql (U) 5 mg/dl Negative [facility] Mucus LM Ql (Urine sed)Order ed By: Jonathan Dillard on 08-16-2023 Mucus Ql (Urine sed) 0 SEEN /hpf [facility] Nitrite Test strip Ql (U)Ord ered By: Jonathan Dillard on 08-16-2023 Nitrite Ql (U) Negative Negative [facility] Protein Test strip Ql (U)Ord ered By: Jonathan Dillard on 08-16-2023 Protein Ql (U) 100 mg/dl Negative [facility] Squamous epithelial cells de tection in urine sediment by light microscopyOrdered By: Jonathan Dillard on 08-16-2023 Epithelial cells.squamous LM Ql (Urine sed) 5-10 SEEN /hpf 5-10 [facility] Urine blood detectionOrdered By: Jonathan Dillard on 08-16-2023 RBC Ql (U) 150 /ul Negative [facility] RBC Ql (U) 5-10 SEEN /hpf 0-5 [facility] Urine clarityOrdered By: Mervat Dillard on 08-16-2023 Clarity (U) Sl. Cloudy Clear [facility] Urine color determinationOrd ered By: Jonathan Dillard on 08-16-2023 Color (U) Yellow Yellow [facility] Urine glucose detectionOrder ed By: Jonathan Dillard on 08-16-2023 Glucose Ql (U) Normal mg/dl Normal [facility] Urine leukocyte esterase det ection by dipstickOrdered By: Jonathan Dillard on 08-16-2023 Leukocyte esterase Test strip Ql (U) 25 /ul Negative [facility] Urine pHOrdered By: Jonathan ramirez on 08-16-2023 pH (U) 5.0 [pH] 5.0 - 8.0 [facility] Urine sediment bacteria coun t by microscopy (number/high power field)Ordered By: Jonathan Dillard on 08-16-2023 Bacteria LM.HPF (Urine sed) [#/Area] 1 /[HPF] None Seen [facility] Urine specific gravity measu rementOrdered By: Jonathan Dillard on 08-16-2023 Specific gravity (U) [Rel density] 1.025 1.002-1.030 [facility] Urobilinogen Auto test strip Ql (U)Ordered By: Jonathan Dillard on 08-16-2023 Urobilinogen Ql (U) Normal mg/dl Normal [facility] LABORATORYOrdered By: Amy Mohan Mayurisabel on 08-15-2023 Glucose [Mass/Vol] 147 mg/dL Invalid Interpretation Code 82 - 115 mg/dL [facility] Work Phone: XR ABDOMEN APon 08-15-2023 XR ABDOMEN AP ORIGINAL HISTORY: Failed colonoscopy, stricture COMPARISON: No. FINDINGS: There is formed stool and gas in the large bowel, most prominently in the right colon. There is a nonobstructive bowel gas pattern. Free air is not well evaluated. No abnormal masses or fluid collections are seen. IMPRESSION: Stool and gas in the colon; no obstruction. Interpreted by: Roberta Rosario MD Preliminary Report By: Roberta Rosario MD Electronically signed By Roberta Rosario MD Dictated Date: 08/15/2023 12:07:16 PM Prelim Date: 08/15/2023 12:08:09 PM Sign Date: 08/15/2023 12:08:09 PM Ordering Provider: MARK JEREZ [facility] ([place]) Absolute lymphocyte countOrd ered By: Calvin Hester on 08-10-2023 Lymphocytes Auto (Unsp spec) [#/Vol] 0.52 10*3/uL 0.83-4.51 [facility] Basophil percentageOrdered B y: Calvin Hester on 08-10-2023 Basophils/100 WBC (Bld) 0.1 % 0-1 [facility] Chloride [Moles/Vol] 103 mmol/L 98-107 [facility] Eosinophils/100 WBC (Bld) 0.4 % 0-5 [facility] Glucose [Mass/Vol] 149 mg/dL 74-106 [facility] Comment on above: Fasting Glucose resu lt greater than or equal to 126 mg/dL suggests DIABETES MELLITUS per A.D.A. criteria. Neutrophils (Bld) [#/Vol] 5.8 10*3/uL 2.0-7.7 [facility] Neutrophils/100 WBC (Bld) 85.8 % 47-70 [facility] Potassium [Moles/Vol] 4.1 mmol/L 3.5-5.1 [facility] Sodium [Moles/Vol] 144 mmol/L 136-145 [facility] WBC (Bld) [#/Vol] 6.8 10*3/uL 4.4-11.0 [facility] Blood erythrocytes count (nu mber/volume)Ordered By: Calvin Hester on 08-10-2023 RBC (Bld) [#/Vol] 3.38 10*6/uL 4.2-5.4 [facility] Blood hemoglobin measurement (mass/volume)Ordered By: Calvin Hester on 08-10-2023 Hemoglobin (Bld) [Mass/Vol] 9.9 g/dL 12.0-15.0 [facility] Blood lymphocytes/100 leukoc ytesOrdered By: Calvin Hester on 08-10-2023 Lymphocytes/100 WBC (Bld) 7.6 % 19-41 [facility] Blood manual differential co mment interpretation (narrative result)Ordered By: Calvin Hester on 08-10-2023 Manual differential comment Ajit (Bld) [Interp] SCANNED [facility] Comment on above: LYMPHOPENIA NOTED Blood monocytes/100 leukocyt esOrdered By: Calvin Hester on 08-10-2023 Monocytes/100 WBC (Bld) 5.7 % 0-10 [facility] Blood platelet mean volumeOr dered By: Calvin Hester on 08-10-2023 Platelet mean volume (Bld) [Entitic vol] 9.1 fL 6.2-12.0 [facility] Determination of erythrocyte mean corpuscular volume (MCV)Ordered By: Calvin Hester on 08-10-2023 MCV (RBC) [Entitic vol] 100.0 fL 81-99 [facility] Hematocrit Auto (Bld) [Volum e fraction]Ordered By: Calvin Hester on 08-10-2023 Hematocrit (Bld) [Volume fraction] 33.8 % 37-47 [facility] Laboratory - Chemistry and C hemistry - challengeOrdered By: Calvin Hester on 08-10-2023 CO2 [Moles/Vol] 40.0 mmol/L 21.0-32.0 [facility] Magnesium [Mass/Vol] 2.1 mg/dL 1.6-2.6 [facility] Urea nitrogen/Creatinine [Mass ratio] 29.3 mg/mg 10-20 [facility] - Hematology and Cell countsOrdered By: Calvin Hester on 08-10-2023 Erythrocyte distribution width (RBC) [Entitic vol] 51.8 fL 35.1-43.9 [facility] Erythrocyte distribution width (RBC) [Ratio] 14.1 % 11.6-14.6 [facility] Immature granulocytes/100 WBC (Bld) 0.400 % 0.0-0.9 [facility] Comment on above: IG% - Immature Granu locytes (promyelocytes, myelocytes and metamyelocytes) > 1% indicates that a LEFT SHIFT is Present. MCH (RBC) [Entitic mass] 29.3 pg 27.0-32.0 [facility] Nucleated RBC/100 WBC (Bld) [Ratio] 0 % 0-5 [facility] MCHC Auto (RBC) [Mass/Vol]Or dered By: Calvin Hester on 08-10-2023 MCHC (RBC) [Mass/Vol] 29.3 g/dL 32-36 [facility] No Panel InformationOrdered By: Calvin Hester on 08-10-2023 Estimated Creatinine Clearance Calc 45.09 ml/min [facility] Estimated GFR (MDRD) Amer 123 mL/min >60 [facility] Comment on above: GFR Calc Estimated GFR (MDRD) Non-Af Amer 101 mL/min >60 [facility] Comment on above: Non- GFR Calc Platelets bldOrdered By: Farooq Hester on 08-10-2023 Platelets (Bld) [#/Vol] 108 10*3/uL 150-450 [facility] Serum or plasma calcium celina urement (mass/volume)Ordered By: Calvin Hester on 08-10-2023 Calcium [Mass/Vol] 8.4 mg/dL 8.5-10.1 [facility] Serum or plasma creatinine m easurement (mass/volume)Ordered By: Calvin Hester on 08-10-2023 Creatinine [Mass/Vol] 0.61 mg/dL 0.55-1.02 [facility] Comment on above: The validity of the calculated GFR & GFRAA in patients over 70 years has not been determined. Clinical correlation is essential. Serum or plasma urea nitroge n measurement (mass/volume)Ordered By: Calvin Hester on 08-10-2023 Urea nitrogen [Mass/Vol] 18 mg/dL 7-18 [facility] Thin prep Papanicolaou smear with manual screeningOrdered By: Calvin Hester on 08-10-2023 Thin prep Papanicolaou smear with manual screening 1 5-15 [facility] Absolute lymphocyte countOrd ered By: Shahnaz Way on 07-14-2023 Lymphocytes Auto (Unsp spec) [#/Vol] 0.68 10*3/uL 0.83-4.51 [facility] Basophil percentageOrdered B y: Shahnaz Way on 07-14-2023 Basophil percentage 0 SEEN /hpf 0-5 [facility] Basophils/100 WBC (Bld) 0.2 % 0-1 [facility] Bilirubin [Mass/Vol] 0.30 mg/dL 0.20-1.00 [facility] Comment on above: For patients on eltr ombopag therapy, use of [employer] TBIL is not recommended. Chloride [Moles/Vol] 103 mmol/L 98-107 [facility] Eosinophils/100 WBC (Bld) 1.3 % 0-5 [facility] Glucose [Mass/Vol] 127 mg/dL 74-106 [facility] Comment on above: Fasting Glucose resu lt greater than or equal to 126 mg/dL suggests DIABETES MELLITUS per A.D.A. criteria. Neutrophils (Bld) [#/Vol] 3.6 10*3/uL 2.0-7.7 [facility] Neutrophils/100 WBC (Bld) 76.9 % 47-70 [facility] Potassium [Moles/Vol] 3.7 mmol/L 3.5-5.1 [facility] Protein [Mass/Vol] 7.0 g/dL 6.4-8.2 [facility] Sodium [Moles/Vol] 144 mmol/L 136-145 [facility] WBC (Bld) [#/Vol] 4.6 10*3/uL 4.4-11.0 [facility] Bilirubin Test strip Ql (U)O rdered By: Shahnaz Way on 07-14-2023 Bilirubin Ql (U) Negative Negative [facility] Blood erythrocytes count (nu mber/volume)Ordered By: Shahnaz Way on 07-14-2023 RBC (Bld) [#/Vol] 3.10 10*6/uL 4.2-5.4 [facility] Blood hemoglobin measurement (mass/volume)Ordered By: Shahnaz Way on 07-14-2023 Hemoglobin (Bld) [Mass/Vol] 8.8 g/dL 12.0-15.0 [facility] Blood lymphocytes/100 leukoc ytesOrdered By: Shahnaz Way on 07-14-2023 Lymphocytes/100 WBC (Bld) 14.7 % 19-41 [facility] Blood monocytes/100 leukocyt esOrdered By: Shahnaz Way on 07-14-2023 Monocytes/100 WBC (Bld) 6.5 % 0-10 [facility] Blood platelet mean volumeOr dered By: Shahnaz Way on 07-14-2023 Platelet mean volume (Bld) [Entitic vol] 8.9 fL 6.2-12.0 [facility] Determination of erythrocyte mean corpuscular volume (MCV)Ordered By: Shahnaz Way on 07-14-2023 MCV (RBC) [Entitic vol] 101.3 fL 81-99 [facility] Hematocrit Auto (Bld) [Volum e fraction]Ordered By: Shahnaz Way on 07-14-2023 Hematocrit (Bld) [Volume fraction] 31.4 % 37-47 [facility] Ketones Test strip Ql (U)Ord ered By: Shahnaz Way on 07-14-2023 Ketones Ql (U) Negative Negative [facility] Laboratory - Chemistry and C hemistry - challengeOrdered By: Shahnaz Way on 07-14-2023 ALP [Catalytic activity/Vol] 76 U/L 45-117 [facility] ALT [Catalytic activity/Vol] 25 U/L 13-56 [facility] CO2 [Moles/Vol] 40.0 mmol/L 21.0-32.0 [facility] Globulin (S) [Mass/Vol] 4.4 g/dL 2.2-4.2 [facility] Urea nitrogen/Creatinine [Mass ratio] 37.6 mg/mg 10-20 [facility] Laboratory - Hematology and Cell countsOrdered By: Shahnaz Way on 07-14-2023 Erythrocyte distribution width (RBC) [Entitic vol] 53.1 fL 35.1-43.9 [facility] Erythrocyte distribution width (RBC) [Ratio] 14.4 % 11.6-14.6 [facility] Immature granulocytes/100 WBC (Bld) 0.400 % 0.0-0.9 [facility] Comment on above: IG% - Immature Granu locytes (promyelocytes, myelocytes and metamyelocytes) > 1% indicates that a LEFT SHIFT is Present. MCH (RBC) [Entitic mass] 28.4 pg 27.0-32.0 [facility] Nucleated RBC/100 WBC (Bld) [Ratio] 0 % 0-5 [facility] MCHC Auto (RBC) [Mass/Vol]Or dered By: Shahnaz Way on 07-14-2023 MCHC (RBC) [Mass/Vol] 28.0 g/dL 32-36 [facility] Mucus LM Ql (Urine sed)Order ed By: Shahnaz Way on 07-14-2023 Mucus Ql (Urine sed) 0 SEEN /hpf [facility] Nitrite Test strip Ql (U)Ord ered By: Shahnaz Way on 07-14-2023 Nitrite Ql (U) Negative Negative [facility] No Panel InformationOrdered By: Shahnaz Way on 07-14-2023 Estimated Creatinine Clearance Calc 45.09 ml/min [facility] Estimated GFR (MDRD) Amer 123 mL/min >60 [facility] Comment on above: GFR Calc Estimated GFR (MDRD) Non-Af Amer 102 mL/min >60 [facility] Comment on above: Non- GFR Calc Platelets bldOrdered By: Jaimee Way on 07-14-2023 Platelets (Bld) [#/Vol] 117 10*3/uL 150-450 [facility] Protein Test strip Ql (U)Ord ered By: Shahnaz Way on 07-14-2023 Protein Ql (U) 15 mg/dl Negative [facility] Serum or plasma albumin celina urement (mass/volume)Ordered By: Shahnaz Way on 07-14-2023 Albumin [Mass/Vol] 2.6 g/dL 3.2-5.0 [facility] Serum or plasma albumin/glob ulin mass ratioOrdered By: Shahnaz Way on 07-14-2023 Albumin/Globulin [Mass ratio] 0.6 {ratio} 0.9-2.4 [facility] Serum or plasma calcium celina urement (mass/volume)Ordered By: Shahnaz Way on 07-14-2023 Calcium [Mass/Vol] 8.8 mg/dL 8.5-10.1 [facility] Serum or plasma creatinine m easurement (mass/volume)Ordered By: Shahnaz Way on 07-14-2023 Creatinine [Mass/Vol] 0.61 mg/dL 0.55-1.02 [facility] Comment on above: The validity of the calculated GFR & GFRAA in patients over 70 years has not been determined. Clinical correlation is essential. Serum or plasma urea nitroge n measurement (mass/volume)Ordered By: Shahnaz Way on 07-14-2023 Urea nitrogen [Mass/Vol] 23 mg/dL 7-18 [facility] Squamous epithelial cells de tection in urine sediment by light microscopyOrdered By: Shahnaz Way on 07-14-2023 Epithelial cells.squamous LM Ql (Urine sed) 0 SEEN /hpf 5-10 [facility] Thin prep Papanicolaou smear with manual screeningOrdered By: Shahnaz Way on 07-14-2023 Thin prep Papanicolaou smear with manual screening 17 U/L 15-37 [facility] Thin prep Papanicolaou smear with manual screening 1 5-15 [facility] Urine blood detectionOrdered By: Shahnaz Way on 07-14-2023 RBC Ql (U) Negative Negative [facility] RBC Ql (U) 0-5 SEEN /hpf 0-5 [facility] Urine clarityOrdered By: Jaimee Way on 07-14-2023 Clarity (U) Clear Clear [facility] Urine color determinationOrd ered By: Shahnaz Way on 07-14-2023 Color (U) Yellow Yellow [facility] Urine glucose detectionOrder ed By: Shahnaz Way on 07-14-2023 Glucose Ql (U) Normal mg/dl Normal [facility] Urine leukocyte esterase det ection by dipstickOrdered By: Shahnaz Way on 07-14-2023 Leukocyte esterase Test strip Ql (U) Negative Negative [facility] Urine pHOrdered By: Shahnaz hoffman on 07-14-2023 pH (U) 6.0 [pH] 5.0 - 8.0 [facility] Urine sediment bacteria coun t by microscopy (number/high power field)Ordered By: Shahnaz Way on 07-14-2023 Bacteria LM.HPF (Urine sed) [#/Area] 0 /[HPF] None Seen [facility] Urine specific gravity measu rementOrdered By: Shahnaz Way on 07-14-2023 Specific gravity (U) [Rel density] 1.020 1.002-1.030 [facility] Urobilinogen Auto test strip Ql (U)Ordered By: Shahnaz Way on 07-14-2023 Urobilinogen Ql (U) Normal mg/dl Normal [facility] Basophil percentageOrdered B y: Jonathan Deperro on 06-28-2023 Bilirubin [Mass/Vol] 0.40 mg/dL 0.20-1.00 [facility] Comment on above: For patients on eltr ombopag therapy, use of [employer] TBIL is not recommended. Chloride [Moles/Vol] 101 mmol/L 98-107 [facility] Glucose [Mass/Vol] 117 mg/dL 74-106 [facility] Comment on above: Fasting Glucose resu lt from 100 to 125 mg/dL suggests IMPAIRED HOMEOSTASIS per A.D.A. criteria. Potassium [Moles/Vol] 3.9 mmol/L 3.5-5.1 [facility] Protein [Mass/Vol] 6.8 g/dL 6.4-8.2 [facility] Sodium [Moles/Vol] 145 mmol/L 136-145 [facility] WBC (Bld) [#/Vol] 4.6 10*3/uL 4.4-11.0 [facility] Blood erythrocytes count (nu mber/volume)Ordered By: Jonathan Dillard on 06-28-2023 RBC (Bld) [#/Vol] 3.02 10*6/uL 4.2-5.4 [facility] Blood hemoglobin measurement (mass/volume)Ordered By: Jonathan Dillard on 06-28-2023 Hemoglobin (Bld) [Mass/Vol] 8.6 g/dL 12.0-15.0 [facility] Blood platelet mean volumeOr dered By: Jonathan Dillard on 06-28-2023 Platelet mean volume (Bld) [Entitic vol] 9.0 fL 6.2-12.0 [facility] Determination of erythrocyte mean corpuscular volume (MCV)Ordered By: Jonathan Dillard on 06-28-2023 MCV (RBC) [Entitic vol] 101.7 fL 81-99 [facility] Hematocrit Auto (Bld) [Volum e fraction]Ordered By: Jonathan Dillard on 06-28-2023 Hematocrit (Bld) [Volume fraction] 30.7 % 37-47 [facility] - Chemistry and C hemistry - challengeOrdered By: Jonathan Dillard on 06-28-2023 ALP [Catalytic activity/Vol] 72 U/L 45-117 [facility] ALT [Catalytic activity/Vol] 16 U/L 13-56 [facility] CO2 [Moles/Vol] 43.0 mmol/L 21.0-32.0 [facility] Globulin (S) [Mass/Vol] 4.2 g/dL 2.2-4.2 [facility] Lipase [Catalytic activity/Vol] 18 U/L 13-75 [facility] Comment on above: Please note:LIPASE r evised reference range effective 23. New Lipase methodology. Expected to produce lower values than the previous assay method. NEW Reference Range: 13 - 75 U/L Urea nitrogen/Creatinine [Mass ratio] 32.5 mg/mg 10-20 [facility] - Hematology and Cell countsOrdered By: Jonathan Dillard on 06-28-2023 Erythrocyte distribution width (RBC) [Entitic vol] 53.0 fL 35.1-43.9 [facility] Erythrocyte distribution width (RBC) [Ratio] 14.1 % 11.6-14.6 [facility] MCH (RBC) [Entitic mass] 28.5 pg 27.0-32.0 [facility] MCHC Auto (RBC) [Mass/Vol]Or dered By: Jonathan Dillard on 06-28-2023 MCHC (RBC) [Mass/Vol] 28.0 g/dL 32-36 [facility] No Panel InformationOrdered By: Jonathan Dillard on 06-28-2023 Estimated GFR (MDRD) Amer 115 mL/min >60 [facility] Comment on above: GFR Calc Estimated GFR (MDRD) Non-Af Amer 95 mL/min >60 [facility] Comment on above: Non- GFR Calc Platelets bldOrdered By: Mervat Dillard on 06-28-2023 Platelets (Bld) [#/Vol] 111 10*3/uL 150-450 [facility] Serum or plasma albumin celina urement (mass/volume)Ordered By: Jonathan Dillard on 06-28-2023 Albumin [Mass/Vol] 2.6 g/dL 3.2-5.0 [facility] Serum or plasma albumin/glob ulin mass ratioOrdered By: Jonathan Dillard on 06-28-2023 Albumin/Globulin [Mass ratio] 0.6 {ratio} 0.9-2.4 [facility] Serum or plasma calcium celina urement (mass/volume)Ordered By: Jonathan Dillard on 06-28-2023 Calcium [Mass/Vol] 9.0 mg/dL 8.5-10.1 [facility] Serum or plasma creatinine m easurement (mass/volume)Ordered By: Jonathan Dillard on 06-28-2023 Creatinine [Mass/Vol] 0.65 mg/dL 0.55-1.02 [facility] Comment on above: The validity of the calculated GFR & GFRAA in patients over 70 years has not been determined. Clinical correlation is essential. Serum or plasma urea nitroge n measurement (mass/volume)Ordered By: Jonathan Dillard on 06-28-2023 Urea nitrogen [Mass/Vol] 21 mg/dL 7-18 [facility] Thin prep Papanicolaou smear with manual screeningOrdered By: Jonathan Dillard on 06-28-2023 Thin prep Papanicolaou smear with manual screening 12 U/L 15-37 [facility] Thin prep Papanicolaou smear with manual screening 1 5-15 [facility] Basophil percentageOrdered B y: Jonathan Dillard on 06-13-2023 Bilirubin [Mass/Vol] 0.40 mg/dL 0.20-1.00 [facility] Comment on above: For patients on eltr ombopag therapy, use of [employer] TBIL is not recommended. Chloride [Moles/Vol] 104 mmol/L 98-107 [facility] Glucose [Mass/Vol] 114 mg/dL 74-106 [facility] Comment on above: Fasting Glucose resu lt from 100 to 125 mg/dL suggests IMPAIRED HOMEOSTASIS per A.D.A. criteria. Potassium [Moles/Vol] 4.0 mmol/L 3.5-5.1 [facility] Protein [Mass/Vol] 6.8 g/dL 6.4-8.2 [facility] Sodium [Moles/Vol] 146 mmol/L 136-145 [facility] WBC (Bld) [#/Vol] 4.5 10*3/uL 4.4-11.0 [facility] Blood erythrocytes count (nu mber/volume)Ordered By: Jonathan Dillard on 06-13-2023 RBC (Bld) [#/Vol] 3.13 10*6/uL 4.2-5.4 [facility] Blood hemoglobin measurement (mass/volume)Ordered By: Jonathan Dillard on 06-13-2023 Hemoglobin (Bld) [Mass/Vol] 9.0 g/dL 12.0-15.0 [facility] Blood platelet mean volumeOr dered By: Jonathan Dillard on 06-13-2023 Platelet mean volume (Bld) [Entitic vol] 9.1 fL 6.2-12.0 [facility] Determination of erythrocyte mean corpuscular volume (MCV)Ordered By: Jonathan Dillard on 06-13-2023 MCV (RBC) [Entitic vol] 100.6 fL 81-99 [facility] Hematocrit Auto (Bld) [Volum e fraction]Ordered By: Jonathan Dillard on 06-13-2023 Hematocrit (Bld) [Volume fraction] 31.5 % 37-47 [facility] - Chemistry and C hemistry - challengeOrdered By: Jonathan Dillard on 06-13-2023 ALP [Catalytic activity/Vol] 72 U/L 45-117 [facility] ALT [Catalytic activity/Vol] 14 U/L 13-56 [facility] CO2 [Moles/Vol] 42.0 mmol/L 21.0-32.0 [facility] Globulin (S) [Mass/Vol] 4.2 g/dL 2.2-4.2 [facility] Urea nitrogen/Creatinine [Mass ratio] 30.8 mg/mg 10-20 [facility] - Hematology and Cell countsOrdered By: Jonathan Dillard on 06-13-2023 Erythrocyte distribution width (RBC) [Entitic vol] 51.3 fL 35.1-43.9 [facility] Erythrocyte distribution width (RBC) [Ratio] 13.9 % 11.6-14.6 [facility] MCH (RBC) [Entitic mass] 28.8 pg 27.0-32.0 [facility] MCHC Auto (RBC) [Mass/Vol]Or dered By: Jonathan Dillard on 06-13-2023 MCHC (RBC) [Mass/Vol] 28.6 g/dL 32-36 [facility] No Panel InformationOrdered By: Jonathan Dillard on 06-13-2023 Estimated GFR (MDRD) Amer 115 mL/min >60 [facility] Comment on above: GFR Calc Estimated GFR (MDRD) Non-Af Amer 95 mL/min >60 [facility] Comment on above: Non- GFR Calc Platelets bldOrdered By: Mervat Dillard on 06-13-2023 Platelets (Bld) [#/Vol] 112 10*3/uL 150-450 [facility] Serum or plasma albumin celina urement (mass/volume)Ordered By: Jonathan Dillard on 06-13-2023 Albumin [Mass/Vol] 2.6 g/dL 3.2-5.0 [facility] Serum or plasma albumin/glob ulin mass ratioOrdered By: Jonathan Dillard on 06-13-2023 Albumin/Globulin [Mass ratio] 0.6 {ratio} 0.9-2.4 [facility] Serum or plasma calcium celina urement (mass/volume)Ordered By: Jonathan Dillard on 06-13-2023 Calcium [Mass/Vol] 8.9 mg/dL 8.5-10.1 [facility] Serum or plasma creatinine m easurement (mass/volume)Ordered By: Jonathan Dillard on 06-13-2023 Creatinine [Mass/Vol] 0.65 mg/dL 0.55-1.02 [facility] Comment on above: The validity of the calculated GFR & GFRAA in patients over 70 years has not been determined. Clinical correlation is essential. Serum or plasma urea nitroge n measurement (mass/volume)Ordered By: Jonathan Dillard on 06-13-2023 Urea nitrogen [Mass/Vol] 20 mg/dL 7-18 [facility] Thin prep Papanicolaou smear with manual screeningOrdered By: Jonathan Dillard on 06-13-2023 Thin prep Papanicolaou smear with manual screening 11 U/L 15-37 [facility] Thin prep Papanicolaou smear with manual screening 0 5-15 [facility] Absolute lymphocyte countOrd ered By: Delfin Jeffries on 05-04-2023 Lymphocytes Auto (Unsp spec) [#/Vol] 0.78 10*3/uL 0.83-4.51 [facility] Basophil percentageOrdered B y: Delfin Jeffries on 05-04-2023 Basophils/100 WBC (Bld) 0.2 % 0-1 [facility] Bilirubin [Mass/Vol] 0.40 mg/dL 0.20-1.00 [facility] Comment on above: For patients on eltr ombopag therapy, use of [employer] TBIL is not recommended. Chloride [Moles/Vol] 104 mmol/L 98-107 [facility] Eosinophils/100 WBC (Bld) 1.3 % 0-5 [facility] Glucose [Mass/Vol] 175 mg/dL 74-106 [facility] Comment on above: Fasting Glucose resu lt greater than or equal to 126 mg/dL suggests DIABETES MELLITUS per A.D.A. criteria. LDH [Catalytic activity/Vol] 125 U/L 84-246 [facility] Neutrophils (Bld) [#/Vol] 4.2 10*3/uL 2.0-7.7 [facility] Neutrophils/100 WBC (Bld) 79.1 % 47-70 [facility] Potassium [Moles/Vol] 4.0 mmol/L 3.5-5.1 [facility] Protein [Mass/Vol] 7.5 g/dL 6.4-8.2 [facility] Sodium [Moles/Vol] 144 mmol/L 136-145 [facility] WBC (Bld) [#/Vol] 5.3 10*3/uL 4.4-11.0 [facility] Blood erythrocytes count (nu mber/volume)Ordered By: Delfin Jeffries on 05-04-2023 RBC (Bld) [#/Vol] 3.49 10*6/uL 4.2-5.4 [facility] Blood hemoglobin measurement (mass/volume)Ordered By: Delfin Jeffries on 05-04-2023 Hemoglobin (Bld) [Mass/Vol] 10.2 g/dL 12.0-15.0 [facility] Blood lymphocytes/100 leukoc ytesOrdered By: Delfin Jeffries on 05-04-2023 Lymphocytes/100 WBC (Bld) 14.7 % 19-41 [facility] Blood monocytes/100 leukocyt esOrdered By: Delfin Jeffries on 05-04-2023 Monocytes/100 WBC (Bld) 4.3 % 0-10 [facility] Blood platelet mean volumeOr dered By: Delfin Jeffries on 05-04-2023 Platelet mean volume (Bld) [Entitic vol] 8.6 fL 6.2-12.0 [facility] Determination of erythrocyte mean corpuscular volume (MCV)Ordered By: Delfin Jeffries on 05-04-2023 MCV (RBC) [Entitic vol] 99.7 fL 81-99 [facility] Hematocrit Auto (Bld) [Volum e fraction]Ordered By: Delfin Jeffries on 05-04-2023 Hematocrit (Bld) [Volume fraction] 34.8 % 37-47 [facility] Hemoglobin in reticulocytes (mass per reticulocyte)Ordered By: Delfin Jeffries on 05-04-2023 Hemoglobin (Reticulocytes) [Entitic mass] 31.0 pg 30-35 [facility] Iron measurement (mass/mass) Ordered By: Delfin Jeffries on 05-04-2023 Iron (Unsp spec) [Mass/Mass] 42 ug/dL 50-170 [facility] - Chemistry and C hemistry - challengeOrdered By: Delfin Jeffries on 05-04-2023 ALP [Catalytic activity/Vol] 84 U/L 45-117 [facility] ALT [Catalytic activity/Vol] 21 U/L 13-56 [facility] CO2 [Moles/Vol] 39.0 mmol/L 21.0-32.0 [facility] Globulin (S) [Mass/Vol] 4.5 g/dL 2.2-4.2 [facility] Urea nitrogen/Creatinine [Mass ratio] 32.1 mg/mg 10-20 [facility] - Hematology and Cell countsOrdered By: Delfin Jeffries on 05-04-2023 Erythrocyte distribution width (RBC) [Entitic vol] 51.9 fL 35.1-43.9 [facility] Erythrocyte distribution width (RBC) [Ratio] 14.6 % 11.6-14.6 [facility] Immature granulocytes/100 WBC (Bld) 0.400 % 0.0-0.9 [facility] Comment on above: IG% - Immature Granu locytes (promyelocytes, myelocytes and metamyelocytes) > 1% indicates that a LEFT SHIFT is Present. MCH (RBC) [Entitic mass] 29.2 pg 27.0-32.0 [facility] Nucleated RBC/100 WBC (Bld) [Ratio] 0 % 0-5 [facility] MCHC Auto (RBC) [Mass/Vol]Or dered By: Delfin Jeffries on 05-04-2023 MCHC (RBC) [Mass/Vol] 29.3 g/dL 32-36 [facility] No Panel InformationOrdered By: Delfin Jeffries on 05-04-2023 Estimated GFR (MDRD) Amer 103 mL/min >60 [facility] Comment on above: GFR Calc Estimated GFR (MDRD) Non-Af Amer 85 mL/min >60 [facility] Comment on above: Non- GFR Calc Immature Reticulocyte Fraction 26.90 % 3.00-15.90 [facility] Reticulocyte Count 2.39 % 0.5-1.5 [facility] Total Iron Binding Capacity 197 ug/dL 250-450 [facility] Platelets bldOrdered By: Luciano Jeffries on 05-04-2023 Platelets (Bld) [#/Vol] 107 10*3/uL 150-450 [facility] Serum or plasma albumin celina urement (mass/volume)Ordered By: Delfin Jeffries on 05-04-2023 Albumin [Mass/Vol] 3.0 g/dL 3.2-5.0 [facility] Serum or plasma albumin/glob ulin mass ratioOrdered By: Delfin Jeffries on 05-04-2023 Albumin/Globulin [Mass ratio] 0.7 {ratio} 0.9-2.4 [facility] Serum or plasma calcium celina urement (mass/volume)Ordered By: Delfin Jeffries on 05-04-2023 Calcium [Mass/Vol] 8.7 mg/dL 8.5-10.1 [facility] Serum or plasma creatinine m easurement (mass/volume)Ordered By: Delfin Jeffries on 05-04-2023 Creatinine [Mass/Vol] 0.72 mg/dL 0.55-1.02 [facility] Comment on above: The validity of the calculated GFR & GFRAA in patients over 70 years has not been determined. Clinical correlation is essential. Serum or plasma ferritin carter surement (mass/volume)Ordered By: Delfin Jeffries on 05-04-2023 Ferritin [Mass/Vol] 192 ng/mL 8-252 [facility] Serum or plasma iron saturat ion measurement (mass fraction)Ordered By: Delfin Jeffries on 05-04-2023 Iron saturation [Mass fraction] 21.3 % 15.0-55.0 [facility] Serum or plasma urea nitroge n measurement (mass/volume)Ordered By: Delfin Jeffries on 05-04-2023 Urea nitrogen [Mass/Vol] 23 mg/dL 7-18 [facility] Thin prep Papanicolaou smear with manual screeningOrdered By: Delfin Jeffries on 05-04-2023 Thin prep Papanicolaou smear with manual screening 16 U/L 15-37 [facility] Thin prep Papanicolaou smear with manual screening 1 5-15 [facility] Absolute lymphocyte countOrd ered By: Dr. Vela on 04-19-2023 Lymphocytes Auto (Unsp spec) [#/Vol] 0.71 10*3/uL 0.83-4.51 [facility] Basophil percentageOrdered B y: Dr. Vela on 04-19-2023 Basophil percentage 0 SEEN /hpf 0-5 [facility] Basophils/100 WBC (Bld) 0.2 % 0-1 [facility] Bilirubin [Mass/Vol] 0.40 mg/dL 0.20-1.00 [facility] Comment on above: For patients on eltr ombopag therapy, use of Dim[employer] TBIL is not recommended. Chloride [Moles/Vol] 102 mmol/L 98-107 [facility] Eosinophils/100 WBC (Bld) 0.9 % 0-5 [facility] Glucose [Mass/Vol] 108 mg/dL 74-106 [facility] Comment on above: Fasting Glucose resu lt from 100 to 125 mg/dL suggests IMPAIRED HOMEOSTASIS per A.D.A. criteria. Neutrophils (Bld) [#/Vol] 5.2 10*3/uL 2.0-7.7 [facility] Neutrophils/100 WBC (Bld) 81.7 % 47-70 [facility] Potassium [Moles/Vol] 3.9 mmol/L 3.5-5.1 [facility] Protein [Mass/Vol] 7.7 g/dL 6.4-8.2 [facility] Sodium [Moles/Vol] 146 mmol/L 136-145 [facility] WBC (Bld) [#/Vol] 6.3 10*3/uL 4.4-11.0 [facility] Bilirubin Test strip Ql (U)O rdered By: Dr. Vela on 04-19-2023 Bilirubin Ql (U) Negative Negative [facility] Blood erythrocytes count (nu mber/volume)Ordered By: Dr. Vela on 04-19-2023 RBC (Bld) [#/Vol] 3.35 10*6/uL 4.2-5.4 [facility] Blood hemoglobin measurement (mass/volume)Ordered By: Dr. Vela on 04-19-2023 Hemoglobin (Bld) [Mass/Vol] 9.6 g/dL 12.0-15.0 [facility] Blood lymphocytes/100 leukoc ytesOrdered By: Dr. Vela on 04-19-2023 Lymphocytes/100 WBC (Bld) 11.2 % 19-41 [facility] Blood monocytes/100 leukocyt esOrdered By: Dr. Vela on 04-19-2023 Monocytes/100 WBC (Bld) 5.5 % 0-10 [facility] Blood platelet mean volumeOr dered By: Dr. Vela on 04-19-2023 Platelet mean volume (Bld) [Entitic vol] 9.5 fL 6.2-12.0 [facility] Determination of erythrocyte mean corpuscular volume (MCV)Ordered By: Dr. Vela on 04-19-2023 MCV (RBC) [Entitic vol] 98.5 fL 81-99 [facility] Hematocrit Auto (Bld) [Volum e fraction]Ordered By: Dr. Vela on 04-19-2023 Hematocrit (Bld) [Volume fraction] 33.0 % 37-47 [facility] Ketones Test strip Ql (U)Ord ered By: Dr. Vela on 04-19-2023 Ketones Ql (U) Negative Negative [facility] - Chemistry and C hemistry - challengeOrdered By: Dr. Vela on 04-19-2023 ALP [Catalytic activity/Vol] 96 U/L 45-117 [facility] ALT [Catalytic activity/Vol] 21 U/L 13-56 [facility] CO2 [Moles/Vol] 41.0 mmol/L 21.0-32.0 [facility] Globulin (S) [Mass/Vol] 4.6 g/dL 2.2-4.2 [facility] Urea nitrogen/Creatinine [Mass ratio] 36.2 mg/mg 10-20 [facility] - Hematology and Cell countsOrdered By: Dr. Vela on 04-19-2023 Erythrocyte distribution width (RBC) [Entitic vol] 50.7 fL 35.1-43.9 [facility] Erythrocyte distribution width (RBC) [Ratio] 14.2 % 11.6-14.6 [facility] Immature granulocytes/100 WBC (Bld) 0.500 % 0.0-0.9 [facility] Comment on above: IG% - Immature Granu locytes (promyelocytes, myelocytes and metamyelocytes) > 1% indicates that a LEFT SHIFT is Present. MCH (RBC) [Entitic mass] 28.7 pg 27.0-32.0 [facility] Nucleated RBC/100 WBC (Bld) [Ratio] 0 % 0-5 [facility] MCHC Auto (RBC) [Mass/Vol]Or dered By: Dr. Vela on 04-19-2023 MCHC (RBC) [Mass/Vol] 29.1 g/dL 32-36 [facility] Mucus LM Ql (Urine sed)Order ed By: Dr. Vela on 04-19-2023 Mucus Ql (Urine sed) 0 SEEN /hpf [facility] Nitrite Test strip Ql (U)Ord ered By: Dr. Vela on 04-19-2023 Nitrite Ql (U) Negative Negative [facility] No Panel InformationOrdered By: Dr. Vela on 04-19-2023 Estimated Creatinine Clearance Calc 45.09 ml/min [facility] Estimated GFR (MDRD) Amer 118 mL/min >60 [facility] Comment on above: GFR Calc Estimated GFR (MDRD) Non-Af Amer 97 mL/min >60 [facility] Comment on above: Non- GFR Calc Platelets bldOrdered By: Dr. Vela on 04-19-2023 Platelets (Bld) [#/Vol] 103 10*3/uL 150-450 [facility] Protein Test strip Ql (U)Ord ered By: Dr. Vela on 04-19-2023 Protein Ql (U) Negative Negative [facility] Serum or plasma albumin celina urement (mass/volume)Ordered By: Dr. Vela on 04-19-2023 Albumin [Mass/Vol] 3.1 g/dL 3.2-5.0 [facility] Serum or plasma albumin/glob ulin mass ratioOrdered By: Dr. Vela on 04-19-2023 Albumin/Globulin [Mass ratio] 0.7 {ratio} 0.9-2.4 [facility] Serum or plasma calcium celina urement (mass/volume)Ordered By: Dr. Vela on 04-19-2023 Calcium [Mass/Vol] 9.3 mg/dL 8.5-10.1 [facility] Serum or plasma creatinine m easurement (mass/volume)Ordered By: Dr. Vela on 04-19-2023 Creatinine [Mass/Vol] 0.64 mg/dL 0.55-1.02 [facility] Comment on above: The validity of the calculated GFR & GFRAA in patients over 70 years has not been determined. Clinical correlation is essential. Serum or plasma urea nitroge n measurement (mass/volume)Ordered By: Dr. Vela on 04-19-2023 Urea nitrogen [Mass/Vol] 23 mg/dL 7-18 [facility] Squamous epithelial cells de tection in urine sediment by light microscopyOrdered By: Dr. Vela on 04-19-2023 Epithelial cells.squamous LM Ql (Urine sed) 0 SEEN /hpf 5-10 [facility] Thin prep Papanicolaou smear with manual screeningOrdered By: Dr. Vela on 04-19-2023 Thin prep Papanicolaou smear with manual screening 16 U/L 15-37 [facility] Thin prep Papanicolaou smear with manual screening 3 5-15 [facility] Urine blood detectionOrdered By: Dr. Vela on 04-19-2023 RBC Ql (U) Negative Negative [facility] RBC Ql (U) 0 SEEN /hpf 0-5 [facility] Urine clarityOrdered By: Dr. Vela on 04-19-2023 Clarity (U) Clear Clear [facility] Urine color determinationOrd ered By: Dr. Vela on 04-19-2023 Color (U) Yellow Yellow [facility] Urine glucose detectionOrder ed By: Dr. Vela on 04-19-2023 Glucose Ql (U) Normal mg/dl Normal [facility] Urine leukocyte esterase det ection by dipstickOrdered By: Dr. Vela on 04-19-2023 Leukocyte esterase Test strip Ql (U) Negative Negative [facility] Urine pHOrdered By: Dr. Isaias barkley on 04-19-2023 pH (U) 6.5 [pH] 5.0 - 8.0 [facility] Urine sediment bacteria coun t by microscopy (number/high power field)Ordered By: Dr. Vela on 04-19-2023 Bacteria LM.HPF (Urine sed) [#/Area] 0 /[HPF] None Seen [facility] Urine specific gravity measu rementOrdered By: Dr. Vela on 04-19-2023 Specific gravity (U) [Rel density] 1.010 1.002-1.030 [facility] Urobilinogen Auto test strip Ql (U)Ordered By: Dr. Vela on 04-19-2023 Urobilinogen Ql (U) Normal mg/dl Normal [facility] Culture, urineOrdered By: Higuera on 04-15-2023 Bacteria identified Cx Nom (U) Presumptive E. coli [facility] Bacteria identified Cx Nom (U) Klebsiella pneumoniae sp pneum [facility] Basophil percentageOrdered B y: Jonathan Dillard on 04-12-2023 Basophil percentage 0-5 SEEN /hpf 0-5 [facility] Bilirubin [Mass/Vol] 0.50 mg/dL 0.20-1.00 [facility] Comment on above: For patients on eltr ombopag therapy, use of Dimension Strang TBIL is not recommended. Chloride [Moles/Vol] 102 mmol/L 98-107 [facility] Glucose [Mass/Vol] 122 mg/dL 74-106 [facility] Comment on above: Fasting Glucose resu lt from 100 to 125 mg/dL suggests IMPAIRED HOMEOSTASIS per A.D.A. criteria. Potassium [Moles/Vol] 3.7 mmol/L 3.5-5.1 [facility] Protein [Mass/Vol] 6.9 g/dL 6.4-8.2 [facility] Sodium [Moles/Vol] 145 mmol/L 136-145 [facility] WBC (Bld) [#/Vol] 5.1 10*3/uL 4.4-11.0 [facility] Bilirubin Test strip Ql (U)O rdered By: Jonathan Dillard on 04-12-2023 Bilirubin Ql (U) Negative Negative [facility] Blood erythrocytes count (nu mber/volume)Ordered By: Jonathan Dillard on 04-12-2023 RBC (Bld) [#/Vol] 3.16 10*6/uL 4.2-5.4 [facility] Blood hemoglobin measurement (mass/volume)Ordered By: Jonathan Dillard on 04-12-2023 Hemoglobin (Bld) [Mass/Vol] 8.9 g/dL 12.0-15.0 [facility] Blood platelet mean volumeOr dered By: Jonathan Dillard on 04-12-2023 Platelet mean volume (Bld) [Entitic vol] 9.1 fL 6.2-12.0 [facility] Culture, urineOrdered By: Higuera on 04-12-2023 Bacteria identified Cx Nom (U) Presumptive E. coli [facility] Bacteria identified Cx Nom (U) Klebsiella pneumoniae sp pneum [facility] Determination of erythrocyte mean corpuscular volume (MCV)Ordered By: Jonathan Dillard on 04-12-2023 MCV (RBC) [Entitic vol] 99.7 fL 81-99 [facility] Hematocrit Auto (Bld) [Volum e fraction]Ordered By: Jonathan Dillard on 04-12-2023 Hematocrit (Bld) [Volume fraction] 31.5 % 37-47 [facility] Ketones Test strip Ql (U)Ord ered By: Jonathan Dillard on 04-12-2023 Ketones Ql (U) Negative Negative [facility] Laboratory - Chemistry and C hemistry - challengeOrdered By: Jonathan Dillard on 04-12-2023 ALP [Catalytic activity/Vol] 83 U/L 45-117 [facility] ALT [Catalytic activity/Vol] 20 U/L 13-56 [facility] CO2 [Moles/Vol] 42.0 mmol/L 21.0-32.0 [facility] Globulin (S) [Mass/Vol] 4.1 g/dL 2.2-4.2 [facility] Urea nitrogen/Creatinine [Mass ratio] 34.6 mg/mg 10-20 [facility] Laboratory - Hematology and Cell countsOrdered By: Jonathan Dillard on 04-12-2023 Erythrocyte distribution width (RBC) [Entitic vol] 53.0 fL 35.1-43.9 [facility] Erythrocyte distribution width (RBC) [Ratio] 14.5 % 11.6-14.6 [facility] MCH (RBC) [Entitic mass] 28.2 pg 27.0-32.0 [facility] MCHC Auto (RBC) [Mass/Vol]Or dered By: Jonathan Dillard on 04-12-2023 MCHC (RBC) [Mass/Vol] 28.3 g/dL 32-36 [facility] Mucus LM Ql (Urine sed)Order ed By: Jonathan Dillard on 04-12-2023 Mucus Ql (Urine sed) 0 SEEN /hpf [facility] Nitrite Test strip Ql (U)Ord ered By: Jonathan Dillard on 04-12-2023 Nitrite Ql (U) Negative Negative [facility] No Panel InformationOrdered By: Jonathan Dillard on 04-12-2023 Estimated GFR (MDRD) Amer 112 mL/min >60 [facility] Comment on above: GFR Calc Estimated GFR (MDRD) Non-Af Amer 93 mL/min >60 [facility] Comment on above: Non- GFR Calc Platelets bldOrdered By: Mervat Dillard on 04-12-2023 Platelets (Bld) [#/Vol] 115 10*3/uL 150-450 [facility] Protein Test strip Ql (U)Ord ered By: Jonathan Dillard on 04-12-2023 Protein Ql (U) Negative Negative [facility] Serum or plasma albumin celina urement (mass/volume)Ordered By: Jonathan Dillard on 04-12-2023 Albumin [Mass/Vol] 2.8 g/dL 3.2-5.0 [facility] Serum or plasma albumin/glob ulin mass ratioOrdered By: Jonathan Dillard on 04-12-2023 Albumin/Globulin [Mass ratio] 0.7 {ratio} 0.9-2.4 [facility] Serum or plasma calcium celina urement (mass/volume)Ordered By: Jonathan Dillard on 04-12-2023 Calcium [Mass/Vol] 9.0 mg/dL 8.5-10.1 [facility] Serum or plasma creatinine m easurement (mass/volume)Ordered By: Jonathan Dillard on 04-12-2023 Creatinine [Mass/Vol] 0.66 mg/dL 0.55-1.02 [facility] Comment on above: The validity of the calculated GFR & GFRAA in patients over 70 years has not been determined. Clinical correlation is essential. Serum or plasma urea nitroge n measurement (mass/volume)Ordered By: Jonathan Dillard on 04-12-2023 Urea nitrogen [Mass/Vol] 23 mg/dL 7-18 [facility] Squamous epithelial cells de tection in urine sediment by light microscopyOrdered By: Jonathan Dillard on 04-12-2023 Epithelial cells.squamous LM Ql (Urine sed) 0-5 SEEN /hpf 5-10 [facility] Thin prep Papanicolaou smear with manual screeningOrdered By: Jonathan Dillard on 04-12-2023 Thin prep Papanicolaou smear with manual screening 14 U/L 15-37 [facility] Thin prep Papanicolaou smear with manual screening 1 5-15 [facility] Urine blood detectionOrdered By: Jonathan Dillard on 04-12-2023 RBC Ql (U) Negative Negative [facility] RBC Ql (U) 0-5 SEEN /hpf 0-5 [facility] Urine clarityOrdered By: Mervat Dillard on 04-12-2023 Clarity (U) Clear Clear [facility] Urine color determinationOrd ered By: Jonathan Dillard on 04-12-2023 Color (U) Yellow Yellow [facility] Urine glucose detectionOrder ed By: Jonathan Dillard on 04-12-2023 Glucose Ql (U) Normal mg/dl Normal [facility] Urine leukocyte esterase det ection by dipstickOrdered By: Jonathan Dillard on 04-12-2023 Leukocyte esterase Test strip Ql (U) 25 /ul Negative [facility] Urine pHOrdered By: Jonathan ramirez on 04-12-2023 pH (U) 5.0 [pH] 5.0 - 8.0 [facility] Urine sediment bacteria coun t by microscopy (number/high power field)Ordered By: Jonathan Dillard on 04-12-2023 Bacteria LM.HPF (Urine sed) [#/Area] 0 /[HPF] None Seen [facility] Urine specific gravity measu rementOrdered By: Jonathan Dillard on 04-12-2023 Specific gravity (U) [Rel density] 1.020 1.002-1.030 [facility] Urobilinogen Auto test strip Ql (U)Ordered By: Jonathan Dillard on 04-12-2023 Urobilinogen Ql (U) Normal mg/dl Normal [facility] Basophil percentageOrdered B y: Jonathan Dillard on 03-28-2023 WBC (Bld) [#/Vol] 4.3 10*3/uL 4.4-11.0 [facility] Blood erythrocytes count (nu mber/volume)Ordered By: Jonathan Dillard on 03-28-2023 RBC (Bld) [#/Vol] 3.38 10*6/uL 4.2-5.4 [facility] Blood hemoglobin measurement (mass/volume)Ordered By: Jonathan Dillard on 03-28-2023 Hemoglobin (Bld) [Mass/Vol] 9.5 g/dL 12.0-15.0 [facility] Blood platelet mean volumeOr dered By: Jonathan Dillard on 03-28-2023 Platelet mean volume (Bld) [Entitic vol] 9.3 fL 6.2-12.0 [facility] Determination of erythrocyte mean corpuscular volume (MCV)Ordered By: Jonathan Dillard on 03-28-2023 MCV (RBC) [Entitic vol] 100.6 fL 81-99 [facility] Hematocrit Auto (Bld) [Volum e fraction]Ordered By: Jonathan Dillard on 03-28-2023 Hematocrit (Bld) [Volume fraction] 34.0 % 37-47 [facility] Laboratory - Hematology and Cell countsOrdered By: Jonathan Dillard on 03-28-2023 Erythrocyte distribution width (RBC) [Entitic vol] 54.0 fL 35.1-43.9 [facility] Erythrocyte distribution width (RBC) [Ratio] 14.7 % 11.6-14.6 [facility] MCH (RBC) [Entitic mass] 28.1 pg 27.0-32.0 [facility] MCHC Auto (RBC) [Mass/Vol]Or dered By: Jonathan Dillard on 03-28-2023 MCHC (RBC) [Mass/Vol] 27.9 g/dL 32-36 [facility] Platelets bldOrdered By: Mervat Dillard on 03-28-2023 Platelets (Bld) [#/Vol] 116 10*3/uL 150-450 [facility] Absolute lymphocyte countOrd ered By: Dr. Jeffries on 03-09-2023 Lymphocytes Auto (Unsp spec) [#/Vol] 0.69 10*3/uL 0.83-4.51 [facility] Basophil percentageOrdered B y: Dr. Jeffries on 03-09-2023 Basophil percentage 3.0 mg/dL 2.5-4.9 [facility] Basophils/100 WBC (Bld) 0.2 % 0-1 [facility] Eosinophils/100 WBC (Bld) 0.9 % 0-5 [facility] LDH [Catalytic activity/Vol] 131 U/L 84-246 [facility] Neutrophils (Bld) [#/Vol] 4.4 10*3/uL 2.0-7.7 [facility] Neutrophils/100 WBC (Bld) 80.2 % 47-70 [facility] WBC (Bld) [#/Vol] 5.5 10*3/uL 4.4-11.0 [facility] Blood erythrocytes count (nu mber/volume)Ordered By: Dr. Jeffries on 03-09-2023 RBC (Bld) [#/Vol] 3.49 10*6/uL 4.2-5.4 [facility] Blood hemoglobin measurement (mass/volume)Ordered By: Dr. Jeffries on 03-09-2023 Hemoglobin (Bld) [Mass/Vol] 9.6 g/dL 12.0-15.0 [facility] Blood lymphocytes/100 leukoc ytesOrdered By: Dr. Jeffries on 03-09-2023 Lymphocytes/100 WBC (Bld) 12.6 % 19-41 [facility] Blood monocytes/100 leukocyt esOrdered By: Dr. Jeffries on 03-09-2023 Monocytes/100 WBC (Bld) 5.7 % 0-10 [facility] Blood platelet mean volumeOr dered By: Dr. Jeffries on 03-09-2023 Platelet mean volume (Bld) [Entitic vol] 9.6 fL 6.2-12.0 [facility] Determination of erythrocyte mean corpuscular volume (MCV)Ordered By: Dr. Jeffries on 03-09-2023 MCV (RBC) [Entitic vol] 97.7 fL 81-99 [facility] Hematocrit Auto (Bld) [Volum e fraction]Ordered By: Dr. Jeffries on 03-09-2023 Hematocrit (Bld) [Volume fraction] 34.1 % 37-47 [facility] Iron measurement (mass/mass) Ordered By: Dr. Jeffries on 03-09-2023 Iron (Unsp spec) [Mass/Mass] 30 ug/dL 50-170 [facility] Laboratory - Chemistry and C hemistry - challengeOrdered By: Dr. Jeffries on 03-09-2023 Cobalamin (Vitamin B12) [Mass/Vol] 669 pg/mL 211-911 [facility] Magnesium [Mass/Vol] 2.0 mg/dL 1.6-2.6 [facility] Laboratory - Hematology and Cell countsOrdered By: Dr. Jeffries on 03-09-2023 Erythrocyte distribution width (RBC) [Entitic vol] 52.1 fL 35.1-43.9 [facility] Erythrocyte distribution width (RBC) [Ratio] 14.6 % 11.6-14.6 [facility] Immature granulocytes/100 WBC (Bld) 0.400 % 0.0-0.9 [facility] Comment on above: IG% - Immature Granu locytes (promyelocytes, myelocytes and metamyelocytes) > 1% indicates that a LEFT SHIFT is Present. MCH (RBC) [Entitic mass] 27.5 pg 27.0-32.0 [facility] Nucleated RBC/100 WBC (Bld) [Ratio] 0 % 0-5 [facility] MCHC Auto (RBC) [Mass/Vol]Or dered By: Dr. Jeffries on 03-09-2023 MCHC (RBC) [Mass/Vol] 28.2 g/dL 32-36 [facility] No Panel InformationOrdered By: Dr. Jeffries on 03-09-2023 Total Iron Binding Capacity 196 ug/dL 250-450 [facility] Platelets bldOrdered By: Dr. Jeffries on 03-09-2023 Platelets (Bld) [#/Vol] 109 10*3/uL 150-450 [facility] Serum or plasma ferritin carter surement (mass/volume)Ordered By: Dr. Jeffries on 03-09-2023 Ferritin [Mass/Vol] 67 ng/mL 8-252 [facility] Serum or plasma iron saturat ion measurement (mass fraction)Ordered By: Dr. Jeffries on 03-09-2023 Iron saturation [Mass fraction] 15.3 % 15.0-55.0 [facility] No Panel InformationOrdered By: Jonathan Dillard on 03-08-2023 CA 125 Antigen 28.1 U/mL 0.0-38.1 [facility] Comment on above: [employer] El ectrochemiluminescence Immunoassay(ECLIA)Values obtained with different assay methods or kits cannotbe used interchangeably. Results cannot be interpreted asabsolute evidence of the presence or absence of malignantdisease.Performed at: [employer] [address] [id number] Director: Mark Woo PhD, Phone: [phone] Basophil percentageOrdered B y: Jonathan Dillard on 03-04-2023 Chloride [Moles/Vol] 102 mmol/L 98-107 [facility] Glucose [Mass/Vol] 154 mg/dL 74-106 [facility] Comment on above: Fasting Glucose resu lt greater than or equal to 126 mg/dL suggests DIABETES MELLITUS per A.D.A. criteria. Potassium [Moles/Vol] 3.5 mmol/L 3.5-5.1 [facility] Sodium [Moles/Vol] 144 mmol/L 136-145 [facility] Laboratory - Chemistry and C hemistry - challengeOrdered By: Jonathan Dillard on 03-04-2023 CO2 [Moles/Vol] 44.0 mmol/L 21.0-32.0 [facility] Urea nitrogen/Creatinine [Mass ratio] 29.9 mg/mg 10-20 [facility] No Panel InformationOrdered By: Jonathan Dillard on 03-04-2023 Estimated GFR (MDRD) Amer 111 mL/min >60 [facility] Comment on above: GFR Calc Estimated GFR (MDRD) Non-Af Amer 92 mL/min >60 [facility] Comment on above: Non- GFR Calc Serum or plasma calcium celina urement (mass/volume)Ordered By: Jonathan Dillard on 03-04-2023 Calcium [Mass/Vol] 9.0 mg/dL 8.5-10.1 [facility] Serum or plasma creatinine m easurement (mass/volume)Ordered By: Jonathan Dillard on 03-04-2023 Creatinine [Mass/Vol] 0.67 mg/dL 0.55-1.02 [facility] Comment on above: The validity of the calculated GFR & GFRAA in patients over 70 years has not been determined. Clinical correlation is essential. Serum or plasma urea nitroge n measurement (mass/volume)Ordered By: Jonathan Dillard on 03-04-2023 Urea nitrogen [Mass/Vol] 20 mg/dL 7-18 [facility] Thin prep Papanicolaou smear with manual screeningOrdered By: Jonathan Dillard on 03-04-2023 Thin prep Papanicolaou smear with manual screening -2 5-15 [facility] Basophil percentageOrdered B y: Jonathan Dillard on 02-28-2023 Chloride [Moles/Vol] 104 mmol/L 98-107 [facility] Glucose [Mass/Vol] 150 mg/dL 74-106 [facility] Comment on above: Fasting Glucose resu lt greater than or equal to 126 mg/dL suggests DIABETES MELLITUS per A.D.A. criteria. Potassium [Moles/Vol] 3.4 mmol/L 3.5-5.1 [facility] Sodium [Moles/Vol] 144 mmol/L 136-145 [facility] WBC (Bld) [#/Vol] 4.5 10*3/uL 4.4-11.0 [facility] Blood erythrocytes count (nu mber/volume)Ordered By: Jonathan Dillard on 02-28-2023 RBC (Bld) [#/Vol] 3.23 10*6/uL 4.2-5.4 [facility] Blood hemoglobin measurement (mass/volume)Ordered By: Jonathan Dillard on 02-28-2023 Hemoglobin (Bld) [Mass/Vol] 8.9 g/dL 12.0-15.0 [facility] Blood platelet mean volumeOr dered By: Jonathan Dillard on 02-28-2023 Platelet mean volume (Bld) [Entitic vol] 9.3 fL 6.2-12.0 [facility] Determination of erythrocyte mean corpuscular volume (MCV)Ordered By: Jonathan Dillard on 02-28-2023 MCV (RBC) [Entitic vol] 97.5 fL 81-99 [facility] Hematocrit Auto (Bld) [Volum e fraction]Ordered By: Jonathan Dillard on 02-28-2023 Hematocrit (Bld) [Volume fraction] 31.5 % 37-47 [facility] Laboratory - Chemistry and C hemistry - challengeOrdered By: Jonathan Dillard on 02-28-2023 CO2 [Moles/Vol] 41.0 mmol/L 21.0-32.0 [facility] Urea nitrogen/Creatinine [Mass ratio] 26.5 mg/mg 10-20 [facility] Laboratory - Hematology and Cell countsOrdered By: Jonathan Dillard on 02-28-2023 Erythrocyte distribution width (RBC) [Entitic vol] 51.0 fL 35.1-43.9 [facility] Erythrocyte distribution width (RBC) [Ratio] 14.2 % 11.6-14.6 [facility] MCH (RBC) [Entitic mass] 27.6 pg 27.0-32.0 [facility] MCHC Auto (RBC) [Mass/Vol]Or dered By: Jonathan Dillard on 02-28-2023 MCHC (RBC) [Mass/Vol] 28.3 g/dL 32-36 [facility] No Panel InformationOrdered By: Jonathan Dillard on 02-28-2023 Estimated GFR (MDRD) Amer 125 mL/min >60 [facility] Comment on above: GFR Calc Estimated GFR (MDRD) Non-Af Amer 104 mL/min >60 [facility] Comment on above: Non- GFR Calc Platelets bldOrdered By: Mervat Dillard on 02-28-2023 Platelets (Bld) [#/Vol] 130 10*3/uL 150-450 [facility] Serum or plasma calcium celina urement (mass/volume)Ordered By: Jonathan Dillard on 02-28-2023 Calcium [Mass/Vol] 8.9 mg/dL 8.5-10.1 [facility] Serum or plasma creatinine m easurement (mass/volume)Ordered By: Jonathan Dillard on 02-28-2023 Creatinine [Mass/Vol] 0.60 mg/dL 0.55-1.02 [facility] Comment on above: The validity of the calculated GFR & GFRAA in patients over 70 years has not been determined. Clinical correlation is essential. Serum or plasma urea nitroge n measurement (mass/volume)Ordered By: Jonathan Dillard on 02-28-2023 Urea nitrogen [Mass/Vol] 16 mg/dL 7-18 [facility] Thin prep Papanicolaou smear with manual screeningOrdered By: Jonathan Dillard on 02-28-2023 Thin prep Papanicolaou smear with manual screening -1 5-15 [facility] Absolute lymphocyte countOrd ered By: Dr. Jaime on 02-25-2023 Lymphocytes Auto (Unsp spec) [#/Vol] 0.74 10*3/uL 0.83-4.51 [facility] Basophil percentageOrdered B y: Dr. Jaime on 02-25-2023 Basophils/100 WBC (Bld) 0.2 % 0-1 [facility] Eosinophils/100 WBC (Bld) 1.2 % 0-5 [facility] Neutrophils (Bld) [#/Vol] 4.0 10*3/uL 2.0-7.7 [facility] Neutrophils/100 WBC (Bld) 79.1 % 47-70 [facility] WBC (Bld) [#/Vol] 5.1 10*3/uL 4.4-11.0 [facility] Bilirubin [Mass/Vol] 0.40 mg/dL 0.20-1.00 [facility] Comment on above: For patients on eltr ombopag therapy, use of Dimension Strang TBIL is not recommended. Chloride [Moles/Vol] 106 mmol/L 98-107 [facility] Glucose [Mass/Vol] 106 mg/dL 74-106 [facility] Comment on above: Fasting Glucose resu lt from 100 to 125 mg/dL suggests IMPAIRED HOMEOSTASIS per A.D.A. criteria. Potassium [Moles/Vol] 4.3 mmol/L 3.5-5.1 [facility] Protein [Mass/Vol] 7.1 g/dL 6.4-8.2 [facility] Sodium [Moles/Vol] 142 mmol/L 136-145 [facility] Blood erythrocytes count (nu mber/volume)Ordered By: Dr. Jaime on 02-25-2023 RBC (Bld) [#/Vol] 3.46 10*6/uL 4.2-5.4 [facility] Blood hemoglobin measurement (mass/volume)Ordered By: Dr. Jaime on 02-25-2023 Hemoglobin (Bld) [Mass/Vol] 9.5 g/dL 12.0-15.0 [facility] Blood lymphocytes/100 leukoc ytesOrdered By: Dr. Jaime on 02-25-2023 Lymphocytes/100 WBC (Bld) 14.7 % 19-41 [facility] Blood monocytes/100 leukocyt esOrdered By: Dr. Jaime on 02-25-2023 Monocytes/100 WBC (Bld) 4.4 % 0-10 [facility] Blood platelet mean volumeOr dered By: Dr. Jaime on 02-25-2023 Platelet mean volume (Bld) [Entitic vol] 8.7 fL 6.2-12.0 [facility] COVID-19 virus antigen assay Ordered By: Dr. Jaime on 02-25-2023 SARS-CoV-2 (COVID-19) Ag IA.rapid Ql (Resp) [facility] Determination of erythrocyte mean corpuscular volume (MCV)Ordered By: Dr. Jaime on 02-25-2023 MCV (RBC) [Entitic vol] 98.3 fL 81-99 [facility] Hematocrit Auto (Bld) [Volum e fraction]Ordered By: Dr. Jaime on 02-25-2023 Hematocrit (Bld) [Volume fraction] 34.0 % 37-47 [facility] Laboratory - Chemistry and C hemistry - challengeOrdered By: Dr. Jaime on 02-25-2023 ALP [Catalytic activity/Vol] 69 U/L 45-117 [facility] ALT [Catalytic activity/Vol] 23 U/L 13-56 [facility] CO2 [Moles/Vol] 34.0 mmol/L 21.0-32.0 [facility] Globulin (S) [Mass/Vol] 4.5 g/dL 2.2-4.2 [facility] Urea nitrogen/Creatinine [Mass ratio] 27.0 mg/mg 10-20 [facility] - Hematology and Cell countsOrdered By: Dr. Jaime on 02-25-2023 Erythrocyte distribution width (RBC) [Entitic vol] 52.0 fL 35.1-43.9 [facility] Erythrocyte distribution width (RBC) [Ratio] 14.5 % 11.6-14.6 [facility] Immature granulocytes/100 WBC (Bld) 0.400 % 0.0-0.9 [facility] Comment on above: IG% - Immature Granu locytes (promyelocytes, myelocytes and metamyelocytes) > 1% indicates that a LEFT SHIFT is Present. MCH (RBC) [Entitic mass] 27.5 pg 27.0-32.0 [facility] Nucleated RBC/100 WBC (Bld) [Ratio] 0 % 0-5 [facility] - Microbiology an d Antimicrobial susceptibilityOrdered By: Dr. Monique on 02-25-2023 Bacteria identified Cx Nom (Bld) No growth in 5 days. [facility] MCHC Auto (RBC) [Mass/Vol]Or dered By: Dr. Jaime on 02-25-2023 MCHC (RBC) [Mass/Vol] 27.9 g/dL 32-36 [facility] No Panel InformationOrdered By: Dr. Jaime on 02-25-2023 Estimated Creatinine Clearance Calc 53.04 ml/min [facility] Estimated GFR (MDRD) Amer 84 mL/min >60 [facility] Comment on above: GFR Calc Estimated GFR (MDRD) Non-Af Amer 69 mL/min >60 [facility] Comment on above: Non- GFR Calc Platelets bldOrdered By: Dr. Jaime on 02-25-2023 Platelets (Bld) [#/Vol] 146 10*3/uL 150-450 [facility] Serum or plasma albumin celina urement (mass/volume)Ordered By: Dr. Jaime on 02-25-2023 Albumin [Mass/Vol] 2.6 g/dL 3.2-5.0 [facility] Serum or plasma albumin/glob ulin mass ratioOrdered By: Dr. Jaime on 02-25-2023 Albumin/Globulin [Mass ratio] 0.6 {ratio} 0.9-2.4 [facility] Serum or plasma calcium celina urement (mass/volume)Ordered By: Dr. Jaime on 02-25-2023 Calcium [Mass/Vol] 8.7 mg/dL 8.5-10.1 [facility] Serum or plasma creatinine m easurement (mass/volume)Ordered By: Dr. Jaime on 02-25-2023 Creatinine [Mass/Vol] 0.85 mg/dL 0.55-1.02 [facility] Comment on above: The validity of the calculated GFR & GFRAA in patients over 70 years has not been determined. Clinical correlation is essential. Serum or plasma urea nitroge n measurement (mass/volume)Ordered By: Dr. Jaime on 02-25-2023 Urea nitrogen [Mass/Vol] 23 mg/dL 7-18 [facility] Thin prep Papanicolaou smear with manual screeningOrdered By: Dr. Jaime on 02-25-2023 Thin prep Papanicolaou smear with manual screening 20 U/L 15-37 [facility] Thin prep Papanicolaou smear with manual screening 2 5-15 [facility] Glucose Glucometer (BldC) [M ass/Vol]Ordered By: Dr. Jaime on 02-23-2023 Glucose [Mass/Vol] 136 mg/dL 74-106 [facility] Comment on above: MANAGEMENT OF PATIEN T CARE PER NURSING PROTOCOL Blood manual differential co mment interpretation (narrative result)Ordered By: Dr. Jaime on 02-22-2023 Manual differential comment Ajit (Bld) [Interp] SCANNED [facility] Comment on above: LYMPHOPENIA Clostridium difficile detect ion by polymerase chain reactionOrdered By: Dr. Banks on 02-22-2023 C. difficile DNA ISA+probe Ql (Unsp spec) [facility] Base excessOrdered By: Dr. Joshua greenfield on 02-21-2023 Base excess Calc (BldV) [Moles/Vol] 12 mmol/L -2-2 [facility] Basophil percentageOrdered B y: Dr. Jaime on 02-21-2023 Basophil percentage 36.1 mmol/L 22-26 [facility] Basophils/100 WBC (Bld) 98 % 95-99 [facility] Blood platelet adequacy dete ction by light microscopyOrdered By: Dr. Padron on 02-21-2023 Platelets LM Ql (Bld) SLT DEC ADEQ [facility] CO2 (BldA) [Partial pressure ]Ordered By: Dr. Jaime on 02-21-2023 CO2 (Bld) [Partial pressure] 52.0 mm[Hg] 35-45 [facility] Culture, urineOrdered By: Dr Che Monique on 02-21-2023 Bacteria identified Cx Nom (U) Culture exhibits no growth. [facility] No Panel InformationOrdered By: Dr. Jaime on 02-21-2023 Bedside Blood Gas PEEP 7 [facility] Bedside Blood Gas Pressure Support 7 [facility] Blood Gas Oxygen Percent 50 [facility] Blood Gas Sample Site R Brach [facility] Blood Gas Specimen Type ART [facility] Blood Gas Total CO2 38 mmol/L [facility] Blood Gas Vent Mode CPAP/PS [facility] Oxygen (BldA) [Partial press ure]Ordered By: Dr. Jaime on 02-21-2023 Oxygen (Bld) [Partial pressure] 99 mmHG 75-100 [facility] Review by pathologistOrdered By: Dr. Padron on 02-21-2023 Pathologist review Ajit (Unsp spec) [Interp] Reviewed [facility] Comment on above: Previous reported re sult: Uyen menchaca Edited by: [email or web address] on 02/23/23:1043Pancytopenia.Leukopenia Normocytic anemia.Mild ThrombocytopeniaClinical correlation necessary.Blas Carrillo M.D. 02/23/23 AMENDED REPORT 02/23/23 1043 PATH REV previously reported as: Uyen menchaca Vancomycin troughOrdered By: Dr. Padron on 02-21-2023 Vancomycin trough [Mass/Vol] 25.5 ug/mL 5.0-15.0 [facility] Comment on above: VANCOMYCIN STANDARED DRUG THERAPY TROUGH LEVEL: 5.0 - 15.0 mg/L VANCOMYCIN HIGH INTENSITY THERAPY TROUGH LEVEL: 15.0 - 20.0 mg/L High Intensity therapy recommended for serious lifethreatening infections include:- Ccblhwjcup-Ovwfwuqymowp-Ybqzgppmc (Ventilator/Healtcare Associated)-Sepsis PLEASE CONTACT PHARMACY SERVICES (#[id number]) FOR INTERPRETATIONOF RESULTS. pH measurementOrdered By: Dr Che Jaime on 02-21-2023 pH (Unsp spec) 7.45 [pH] 7.35-7.45 [facility] Assessment of wrist artery p atency prior to arterial punctureOrdered By: Dr. Padron on 02-20-2023 Arterial patency Wrist artery --pre arterial puncture Positive [facility] Basophil percentageOrdered B y: Dr. Monique on 02-20-2023 Triglyceride [Mass/Vol] 141 mg/dL <199 [facility] Comment on above: The drugs N-Acetylcy steine and Metamizole may falsely depress this assay.Serum Triglycerides Reference Interval Normal <150 mg/dL Borderline high 150 - 199 mg/dL High 200 - 499 mg/dL Very High > or = 500 mg/dL Laboratory - Chemistry and C hemistry - challengeOrdered By: Dr. Monique on 02-20-2023 CK [Catalytic activity/Vol] 26 U/L 26-192 [facility] No Panel InformationOrdered By: Dr. Padron on 02-20-2023 Blood Gas Respiration Rate 15 [facility] Oxygen Delivery Device Adult Vent [facility] Basophil percentageOrdered B y: Dr. Padron on 02-19-2023 Basophil percentage 3.6 mg/dL 2.5-4.9 [facility] Laboratory - Chemistry and C hemistry - challengeOrdered By: Dr. Padron on 02-19-2023 Magnesium [Mass/Vol] 2.0 mg/dL 1.6-2.6 [facility] No Panel InformationOrdered By: Dr. Padron on 02-19-2023 Bld Gas Crit Called To/Read Back By Yes [facility] Blood Gas Notified Whom STEW [facility] Blood Gas Tidal Volume 325 [facility] Laboratory - Hematology and Cell countsOrdered By: Dr. Resendiz on 02-18-2023 Anisocytosis Ql (Bld) 1+ [facility] No Panel InformationOrdered By: Dr. Padron on 02-18-2023 Blood Gas Notified Time 1716 [facility] No Panel InformationOrdered By: Dr. Monique on 02-18-2023 Miscellaneous Test See comment [facility] Comment on above: TEST RESULT LIMITSRe spiratory Profile, PCR Adenovirus Not Detected Not Detected Coronavirus HKU1 Not Detected Not Detected Coronavirus NL63 Not Detected Not Detected Coronavirus 229E Not Detected Not Detected Coronavirus OC43 Not Detected Not Detected Human Metapneumovirus Not Detected Not Detected Human Rhinovirus/Enterovirus Not Detected Not Detected Influenza A Not Detected Not Detected Influenza A/H1 Not Detected Not Detected Influenza A/H1-2009 Not Detected Not Detected Influenza A/H3 Not Detected Not Detected Influenza B Not Detected Not Detected Parainfluenza 1 Not Detected Not Detected Parainfluenza 2 Not Detected Not Detected Parainfluenza 3 Not Detected Not Detected Parainfluenza 4 Not Detected Not Detected Respiratory Syncytial Virus Not Detected Not Detected Bordetella pertussis Not Detected Not Detected Chlamydophila pneumoniae Not Detected Not Detected Mycoplasma pneumoniae Not Detected Not Detected __ TESTING PERFORMED AT [facility]. ORIGINAL REPORT ON FILE IN LAB CONTAINS ADDITIONAL TEST SITE INFORMATION. No Panel InformationOrdered By: Dr. Resendiz on 02-18-2023 Thyroid Stimulating Hormone (TSH) 0.74 uIU/mL 0.358-3.74 [facility] Methicillin-Resist S.aureus DNA PCR Positive Negative [facility] Serum procalcitonin measurem entOrdered By: Dr. Resendiz on 02-18-2023 Procalcitonin [Mass/Vol] 0.13 ng/mL 0.00-0.09 [facility] Comment on above: A procalcitonin (PCT ) level above 2.0 ng/mL on the first day of ICU admission is associated with a high risk for progression to severe sepsis and/or septic shock. A PCT level below 0.5 ng/mL on the first day of ICU admission is associated with a low risk for progression to severe and/or septic shock. Note: Concentrations <0.5 ng/mL do not exclude an infection on account of localized infections (without systemic signs) which can be associated with such low concentrations, or a systemic infection in its initial stages (<6 hours). Furthermore, increased procalcitonin can occur without infection. PCT concentrations between 0.5 and 2.0 ng/mL should be interpreted taking into account the patient's history. It is recommended to retest PCT within 6-24 hours if any concentrations <2 ng/mL are obtained. Absolute lymphocyte countOrd ered By: Dr. Tsai on 02-17-2023 Lymphocytes Auto (Unsp spec) [#/Vol] 0.69 10*3/uL 0.83-4.51 [facility] Assessment of wrist artery p atency prior to arterial punctureOrdered By: Dr. Resendiz on 02-17-2023 Arterial patency Wrist artery --pre arterial puncture Positive [facility] Base excessOrdered By: Dr. Deepika hernandez on 02-17-2023 Base excess Calc (BldV) [Moles/Vol] 26 mmol/L -2-2 [facility] Basophil percentageOrdered B y: Dr. Resendiz on 02-17-2023 Basophil percentage 51.8 mmol/L 22-26 [facility] Basophils/100 WBC (Bld) 88 % 95-99 [facility] Basophil percentageOrdered B y: Dr. Tsai on 02-17-2023 Basophil percentage 0 SEEN /hpf 0-5 [facility] Basophils/100 WBC (Bld) 0.4 % 0-1 [facility] Bilirubin [Mass/Vol] 0.50 mg/dL 0.20-1.00 [facility] Comment on above: For patients on eltr ombopag therapy, use of Dimension Strang TBIL is not recommended. Chloride [Moles/Vol] 102 mmol/L 98-107 [facility] Eosinophils/100 WBC (Bld) 0.2 % 0-5 [facility] Glucose [Mass/Vol] 238 mg/dL 74-106 [facility] Comment on above: Glucose result great er than or equal to 200 mg/dLsuggests DIABETES MELLITUS per A.D.A. criteria. Neutrophils (Bld) [#/Vol] 9.1 10*3/uL 2.0-7.7 [facility] Neutrophils/100 WBC (Bld) 87.0 % 47-70 [facility] Potassium [Moles/Vol] 4.1 mmol/L 3.5-5.1 [facility] Protein [Mass/Vol] 7.6 g/dL 6.4-8.2 [facility] Sodium [Moles/Vol] 145 mmol/L 136-145 [facility] WBC (Bld) [#/Vol] 10.5 10*3/uL 4.4-11.0 [facility] Bilirubin Test strip Ql (U)O rdered By: Dr. Tsai on 02-17-2023 Bilirubin Ql (U) Negative Negative [facility] Blood erythrocytes count (nu mber/volume)Ordered By: Dr. Tsai on 02-17-2023 RBC (Bld) [#/Vol] 3.69 10*6/uL 4.2-5.4 [facility] Blood hemoglobin measurement (mass/volume)Ordered By: Dr. Tsai on 02-17-2023 Hemoglobin (Bld) [Mass/Vol] 10.1 g/dL 12.0-15.0 [facility] Blood lymphocytes/100 leukoc ytesOrdered By: Dr. Tsai on 02-17-2023 Lymphocytes/100 WBC (Bld) 6.6 % 19-41 [facility] Blood monocytes/100 leukocyt esOrdered By: Dr. Tsai on 02-17-2023 Monocytes/100 WBC (Bld) 3.6 % 0-10 [facility] Blood platelet mean volumeOr dered By: Dr. Tsai on 02-17-2023 Platelet mean volume (Bld) [Entitic vol] 8.4 fL 6.2-12.0 [facility] CO2 (BldA) [Partial pressure ]Ordered By: Dr. Resendiz on 02-17-2023 CO2 (Bld) [Partial pressure] 96.6 mm[Hg] 35-45 [facility] Determination of erythrocyte mean corpuscular volume (MCV)Ordered By: Dr. Tsai on 02-17-2023 MCV (RBC) [Entitic vol] 101.1 fL 81-99 [facility] Hematocrit Auto (Bld) [Volum e fraction]Ordered By: Dr. Tsai on 02-17-2023 Hematocrit (Bld) [Volume fraction] 37.3 % 37-47 [facility] Hyaline casts LM.LPF (Urine sed) [#/Area]Ordered By: Dr. Tsai on 02-17-2023 Hyaline casts (Urine sed) [#/Area] 0 /[LPF] 0-5 [facility] Ketones Test strip Ql (U)Ord ered By: Dr. Tsai on 02-17-2023 Ketones Ql (U) Negative Negative [facility] Laboratory - Chemistry and C hemistry - challengeOrdered By: Dr. Tsai on 02-17-2023 ALP [Catalytic activity/Vol] 99 U/L 45-117 [facility] ALT [Catalytic activity/Vol] 26 U/L 13-56 [facility] CO2 [Moles/Vol] 45.0 mmol/L 21.0-32.0 [facility] Globulin (S) [Mass/Vol] 4.7 g/dL 2.2-4.2 [facility] Urea nitrogen/Creatinine [Mass ratio] 36.2 mg/mg 10-20 [facility] Laboratory - Chemistry and C hemistry - challengeOrdered By: Dr. Resendiz on 02-17-2023 Natriuretic peptide B (Bld) [Mass/Vol] 132.9 pg/mL 0-100 [facility] - Drug toxicology Ordered By: Dr. Tsai on 02-17-2023 Amphetamines Ql (U) Negative <1000 ng/mL [facility] Benzodiazepines Ql (U) Negative < 200 ng/mL [facility] Cannabinoids Screen Ql (U) Negative < 50 ng/mL [facility] Cocaine Ql (U) Negative < 300 ng/mL [facility] Opiates Ql (U) Negative < 300 ng/mL [facility] Laboratory - Hematology and Cell countsOrdered By: Dr. Tsai on 02-17-2023 Erythrocyte distribution width (RBC) [Entitic vol] 55.7 fL 35.1-43.9 [facility] Erythrocyte distribution width (RBC) [Ratio] 15.0 % 11.6-14.6 [facility] Immature granulocytes/100 WBC (Bld) 2.200 % 0.0-0.9 [facility] Comment on above: IG% - Immature Granu locytes (promyelocytes, myelocytes and metamyelocytes) > 1% indicates that a LEFT SHIFT is Present. MCH (RBC) [Entitic mass] 27.4 pg 27.0-32.0 [facility] Nucleated RBC/100 WBC (Bld) [Ratio] 0.2 % 0-5 [facility] MCHC Auto (RBC) [Mass/Vol]Or dered By: Dr. Tsai on 02-17-2023 MCHC (RBC) [Mass/Vol] 27.1 g/dL 32-36 [facility] Mucus LM Ql (Urine sed)Order ed By: Dr. Tsai on 02-17-2023 Mucus Ql (Urine sed) 0 SEEN /hpf [facility] Nitrite Test strip Ql (U)Ord ered By: Dr. Tsai on 02-17-2023 Nitrite Ql (U) Negative Negative [facility] No Panel InformationOrdered By: Dr. Resendiz on 02-17-2023 Bedside Blood Gas PEEP 5 [facility] Bld Gas Crit Called To/Read Back By Yes [facility] Blood Gas Notified Time 2245 [facility] Blood Gas Notified Whom ED [facility] Blood Gas Oxygen Percent 60 [facility] Blood Gas Respiration Rate 16 [facility] Blood Gas Sample Site L RADIAL [facility] Blood Gas Specimen Type ART [facility] Blood Gas Tidal Volume 450 [facility] Blood Gas Total CO2 > 50 mmol/L [facility] Blood Gas Vent Mode AC/VC [facility] Oxygen Delivery Device Vent [facility] No Panel InformationOrdered By: Dr. Tsai on 02-17-2023 Ethyl Alcohol Level < 3.0 mg/dL [facility] Comment on above: The serum:whole bloo d ethanol ratio is approximately 1.14and varies slightly with hematocrit. Medical Alcohol reference interval and critical value innon-tolerant individuals; 50 - 100 Impairment 100 Intoxication 100 - 250 Severe Poisoning 250 - 400 Deep/possible fatal coma MDMA (Ecstasy) Screen Negative < 500 ng/mL [facility] Urine Barbiturates Screen Negative < 200 ng/mL [facility] Urine Drug Screen Comment [facility] Comment on above: CONFIRMATORY TESTING FOR ALL POSITIVE URINE DRUG SCREENRESULTS WILL ONLY BE SENT OUT UPON PHYSICIAN ORDER. VISTA Urine Drug Screen methods provide only preliminaryanalytical test results. A more specific alternate chemicalmethod must be used in order to obtain a confirmedanalytical result. Gas chromatography/mass spectrometery(GC/MS) is the preferred confirmatory method. Clinicalconsideration and professional judgement should be appliedto any drug of abuse test result, particularly whenpreliminary positive results are used. URINE TCA TESTING MUST BE ORDERED SEPARATELY. USE TESTMNEMONIC: [facility] Urine Methadone Screen Negative < 300 ng/mL [facility] Estimated Creatinine Clearance Calc 45.09 ml/min [facility] Estimated GFR (MDRD) Amer 118 mL/min >60 [facility] Comment on above: GFR Calc Estimated GFR (MDRD) Non-Af Amer 98 mL/min >60 [facility] Comment on above: Non- GFR Calc Troponin I High Sensitivity 13 pg/mL 3.0-54.0 [facility] Comment on above: Please Note: New Rosalie t Units and Gender Specific Reference Ranges. For more information see Policy Stat Procedure Strang High Sensitivity Troponin (TNIH) and attachments. Oxygen (BldA) [Partial press ure]Ordered By: Dr. Resendiz on 02-17-2023 Oxygen (Bld) [Partial pressure] 64 mmHG 75-100 [facility] Platelets bldOrdered By: Dr. Tsai on 02-17-2023 Platelets (Bld) [#/Vol] 163 10*3/uL 150-450 [facility] Protein Test strip Ql (U)Ord ered By: Dr. Tsai on 02-17-2023 Protein Ql (U) 100 mg/dl Negative [facility] Serum or plasma albumin celina urement (mass/volume)Ordered By: Dr. Tsai on 02-17-2023 Albumin [Mass/Vol] 2.9 g/dL 3.2-5.0 [facility] Serum or plasma albumin/glob ulin mass ratioOrdered By: Dr. Tsai on 02-17-2023 Albumin/Globulin [Mass ratio] 0.6 {ratio} 0.9-2.4 [facility] Serum or plasma calcium celina urement (mass/volume)Ordered By: Dr. Tsai on 02-17-2023 Calcium [Mass/Vol] 8.9 mg/dL 8.5-10.1 [facility] Serum or plasma creatinine m easurement (mass/volume)Ordered By: Dr. Tsai on 02-17-2023 Creatinine [Mass/Vol] 0.64 mg/dL 0.55-1.02 [facility] Comment on above: The validity of the calculated GFR & GFRAA in patients over 70 years has not been determined. Clinical correlation is essential. Serum or plasma urea nitroge n measurement (mass/volume)Ordered By: Dr. Tsai on 02-17-2023 Urea nitrogen [Mass/Vol] 23 mg/dL 7-18 [facility] Squamous epithelial cells de tection in urine sediment by light microscopyOrdered By: Dr. Tsai on 02-17-2023 Epithelial cells.squamous LM Ql (Urine sed) 0-5 SEEN /hpf 5-10 [facility] Thin prep Papanicolaou smear with manual screeningOrdered By: Dr. Tsai on 02-17-2023 Thin prep Papanicolaou smear with manual screening 21 U/L 15-37 [facility] Thin prep Papanicolaou smear with manual screening -2 5-15 [facility] Urine blood detectionOrdered By: Dr. Tsai on 02-17-2023 RBC Ql (U) 25 /ul Negative [facility] RBC Ql (U) 0-5 SEEN /hpf 0-5 [facility] Urine clarityOrdered By: Dr. Tsai on 02-17-2023 Clarity (U) Sl. Cloudy Clear [facility] Urine coarse granular cast d etectionOrdered By: Dr. Tsai on 02-17-2023 Coarse Granular Casts LM Ql (Urine sed) 0-5 SEEN /lpf 0-5 /lpf [facility] Urine color determinationOrd ered By: Dr. Tsai on 02-17-2023 Color (U) Yellow Yellow [facility] Urine glucose detectionOrder ed By: Dr. Tsai on 02-17-2023 Glucose Ql (U) Normal mg/dl Normal [facility] Urine leukocyte esterase det ection by dipstickOrdered By: Dr. Tsai on 02-17-2023 Leukocyte esterase Test strip Ql (U) Negative Negative [facility] Urine pHOrdered By: Dr. Paul kohli on 02-17-2023 pH (U) 5.0 [pH] 5.0 - 8.0 [facility] Urine phencyclidine (PCP) de tectionOrdered By: Dr. Tsai on 02-17-2023 Phencyclidine Ql (U) Negative < 25 ng/mL [facility] Urine sediment bacteria coun t by microscopy (number/high power field)Ordered By: Dr. Tsai on 02-17-2023 Bacteria LM.HPF (Urine sed) [#/Area] 0 /[HPF] None Seen [facility] Urine specific gravity measu rementOrdered By: Dr. Tsai on 02-17-2023 Specific gravity (U) [Rel density] 1.030 1.002-1.030 [facility] Urobilinogen Auto test strip Ql (U)Ordered By: Dr. Tsai on 02-17-2023 Urobilinogen Ql (U) Normal mg/dl Normal [facility] pH measurementOrdered By: Dr Che Resendiz on 02-17-2023 pH (Unsp spec) 7.34 [pH] 7.35-7.45 [facility] No Panel InformationOrdered By: Jonathan Dillard on 02-07-2023 Miscellaneous Test See comment [facility] Comment on above: TEST RESULTS LIMITSS ARS-CoV-2, [id number], ISA Not Detected Not DetectedThis nucleic acid amplification test was developed and its performance characteristics determined by [employer]. Nucleic acid amplification tests include RT-PCR and TMA. This test has not been FDA cleared or approved. This test has been authorized by FDA under an Emergency Use Authorization (EUA). This test is only authorizedfor the duration of time the declaration that circumstances exist justifying the authorization of the emergency use of in vitro diagnostic tests for detection of SARS-CoV-2 virus and/or diagnosis of COVID-19 infection under section 564(b)(1) of the Act, 21 U.S.C. 360bbb-3(b) (1), unless the authorization is terminated or revoked sooner.When diagnostic testing is negative, the possibility of a false negative result should be considered in the context of a patient's recent exposures and the presence of clinical signs and symptoms consistent with COVID-19. An individual without symptoms of COVID-19 and who is not shedding SARS-CoV-2 virus would expect to have a negative (not detected) result in this assay. [facility] ORIGINAL REPORT ON FILE IN LAB CONTAINS ADDITIONAL TEST SITE INFORMATION. Absolute lymphocyte countOrd ered By: Dr. Jeffries on 01-11-2023 Lymphocytes Auto (Unsp spec) [#/Vol] 0.59 10*3/uL 0.83-4.51 [facility] Basophil percentageOrdered B y: Dr. Jeffries on 01-11-2023 Basophils/100 WBC (Bld) 0.2 % 0-1 [facility] Bilirubin [Mass/Vol] 0.50 mg/dL 0.20-1.00 [facility] Comment on above: For patients on eltr ombopag therapy, use of Dimension Strang TBIL is not recommended. Chloride [Moles/Vol] 99 mmol/L 98-107 [facility] Eosinophils/100 WBC (Bld) 1.1 % 0-5 [facility] Glucose [Mass/Vol] 124 mg/dL 74-106 [facility] Comment on above: Fasting Glucose resu lt from 100 to 125 mg/dL suggests IMPAIRED HOMEOSTASIS per A.D.A. criteria. LDH [Catalytic activity/Vol] 147 U/L 84-246 [facility] Neutrophils (Bld) [#/Vol] 4.4 10*3/uL 2.0-7.7 [facility] Neutrophils/100 WBC (Bld) 81.5 % 47-70 [facility] Potassium [Moles/Vol] 4.2 mmol/L 3.5-5.1 [facility] Protein [Mass/Vol] 7.1 g/dL 6.4-8.2 [facility] Sodium [Moles/Vol] 146 mmol/L 136-145 [facility] WBC (Bld) [#/Vol] 5.4 10*3/uL 4.4-11.0 [facility] Blood erythrocytes count (nu mber/volume)Ordered By: Dr. Jeffries on 01-11-2023 RBC (Bld) [#/Vol] 3.43 10*6/uL 4.2-5.4 [facility] Blood hemoglobin measurement (mass/volume)Ordered By: Dr. Jeffries on 01-11-2023 Hemoglobin (Bld) [Mass/Vol] 9.7 g/dL 12.0-15.0 [facility] Blood lymphocytes/100 leukoc ytesOrdered By: Dr. Jeffries on 01-11-2023 Lymphocytes/100 WBC (Bld) 11.0 % 19-41 [facility] Blood manual differential co mment interpretation (narrative result)Ordered By: Dr. Jeffries on 01-11-2023 Manual differential comment Ajit (Bld) [Interp] SCANNED [facility] Blood monocytes/100 leukocyt esOrdered By: Dr. Jeffries on 01-11-2023 Monocytes/100 WBC (Bld) 5.6 % 0-10 [facility] Blood platelet mean volumeOr dered By: Dr. Jeffries on 01-11-2023 Platelet mean volume (Bld) [Entitic vol] 8.4 fL 6.2-12.0 [facility] Determination of erythrocyte mean corpuscular volume (MCV)Ordered By: Dr. Jeffries on 01-11-2023 MCV (RBC) [Entitic vol] 97.4 fL 81-99 [facility] Hematocrit Auto (Bld) [Volum e fraction]Ordered By: Dr. Jeffries on 01-11-2023 Hematocrit (Bld) [Volume fraction] 33.4 % 37-47 [facility] Hemoglobin in reticulocytes (mass per reticulocyte)Ordered By: Dr. Jeffries on 01-11-2023 Hemoglobin (Reticulocytes) [Entitic mass] 24.6 pg 30-35 [facility] Hypochromatic red blood cell detectionOrdered By: Dr. Jeffries on 01-11-2023 Hypochromia Ql (Bld) 2+ [facility] Iron measurement (mass/mass) Ordered By: Dr. Jeffries on 01-11-2023 Iron (Unsp spec) [Mass/Mass] 35 ug/dL 50-170 [facility] Laboratory - Chemistry and C hemistry - challengeOrdered By: Dr. Jeffries on 01-11-2023 ALP [Catalytic activity/Vol] 81 U/L 45-117 [facility] ALT [Catalytic activity/Vol] 15 U/L 13-56 [facility] CO2 [Moles/Vol] 43.0 mmol/L 21.0-32.0 [facility] Cobalamin (Vitamin B12) [Mass/Vol] 561 pg/mL 211-911 [facility] Globulin (S) [Mass/Vol] 3.9 g/dL 2.2-4.2 [facility] Urea nitrogen/Creatinine [Mass ratio] 22.3 mg/mg 10-20 [facility] Laboratory - Hematology and Cell countsOrdered By: Dr. Jeffries on 01-11-2023 Erythrocyte distribution width (RBC) [Entitic vol] 51.6 fL 35.1-43.9 [facility] Erythrocyte distribution width (RBC) [Ratio] 14.5 % 11.6-14.6 [facility] Immature granulocytes/100 WBC (Bld) 0.600 % 0.0-0.9 [facility] Comment on above: IG% - Immature Granu locytes (promyelocytes, myelocytes and metamyelocytes) > 1% indicates that a LEFT SHIFT is Present. MCH (RBC) [Entitic mass] 28.3 pg 27.0-32.0 [facility] Nucleated RBC/100 WBC (Bld) [Ratio] 0 % 0-5 [facility] MCHC Auto (RBC) [Mass/Vol]Or dered By: Dr. Jeffries on 01-11-2023 MCHC (RBC) [Mass/Vol] 29.0 g/dL 32-36 [facility] No Panel InformationOrdered By: Dr. Jeffries on 01-11-2023 Estimated GFR (MDRD) Amer 102 mL/min >60 [facility] Comment on above: GFR Calc Estimated GFR (MDRD) Non-Af Amer 85 mL/min >60 [facility] Comment on above: Non- GFR Calc Immature Platelet Fraction 1.3 % 1.0-7.9 [facility] Comment on above: Low PLT + Low IPF faust ggest a bone marrow production disorderLow PLT + high IPF suggests peripheral destruction(e.g.ITP, TTP, HIT, DIC, autoimmune) or bone marrow recoveryTrending of serial IPF measurements is recommended when evaluating for bone marrow responesValue above normal range indicates an increase in RBC cellular response from bone marrow. Immature Reticulocyte Fraction 23.00 % 3.00-15.90 [facility] Reticulocyte Count 2.53 % 0.5-1.5 [facility] Total Iron Binding Capacity 186 ug/dL 250-450 [facility] Platelets bldOrdered By: Dr. Jeffries on 01-11-2023 Platelets (Bld) [#/Vol] 138 10*3/uL 150-450 [facility] Serum or plasma albumin celina urement (mass/volume)Ordered By: Dr. Jeffries on 01-11-2023 Albumin [Mass/Vol] 3.2 g/dL 3.2-5.0 [facility] Serum or plasma albumin/glob ulin mass ratioOrdered By: Dr. Jeffries on 01-11-2023 Albumin/Globulin [Mass ratio] 0.8 {ratio} 0.9-2.4 [facility] Serum or plasma calcium celina urement (mass/volume)Ordered By: Dr. Jeffries on 01-11-2023 Calcium [Mass/Vol] 9.1 mg/dL 8.5-10.1 [facility] Serum or plasma creatinine m easurement (mass/volume)Ordered By: Dr. Jeffries on 01-11-2023 Creatinine [Mass/Vol] 0.72 mg/dL 0.55-1.02 [facility] Comment on above: The validity of the calculated GFR & GFRAA in patients over 70 years has not been determined. Clinical correlation is essential. Serum or plasma ferritin carter surement (mass/volume)Ordered By: Dr. Jeffries on 01-11-2023 Ferritin [Mass/Vol] 55 ng/mL 8-252 [facility] Serum or plasma folate measu rement (mass/volume)Ordered By: Dr. Jeffries on 01-11-2023 Folate [Mass/Vol] 73.30 ng/mL 3.1-55.4 [facility] Serum or plasma iron saturat ion measurement (mass fraction)Ordered By: Dr. Jeffries on 01-11-2023 Iron saturation [Mass fraction] 18.8 % 15.0-55.0 [facility] Serum or plasma urea nitroge n measurement (mass/volume)Ordered By: Dr. Jeffries on 02-28-2023 Urea nitrogen [Mass/Vol] 16 mg/dL 7-18 [facility] Thin prep Papanicolaou smear with manual screeningOrdered By: Dr. Jeffries on 01-11-2023 Thin prep Papanicolaou smear with manual screening 14 U/L 15-37 [facility] Thin prep Papanicolaou smear with manual screening 4 5-15 [facility] Progress Noteon 11-02-2022 Progress Note Obese hypertensive diabetic appeared to have persistent pancytopenia has been recovering pretty 3 months out from her cervical spine fracture surgery. Apparently had CT of the cervical spine a few days ago and is having a virtual visit with her orthopedic surgery today. Pain is minimal with the brace on. No neurologic symptoms her arms and hands. Glucose levels have been well. Has been well on blood pressure meds. Laboratory shows pancytopenia. 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 No role follow-up since. Denies recent headache cough or chest pain. No palpitations. Eating and voiding well. No heartburn or dysphagia. No abdominal pain. No melena or blood. No dysuria. Substantial social stressors with her inability to be discharged to home due to her has some legal issues. She cannot live with her daughter presently as well. Trying to be placed in a alternate facility. Alert and pleasant. Slightly pale. No JVD or neck masses or adenopathy. Heart is regular without ectopy. Lungs are diminished but clear. Abdomen obese nontender without masses or pain or ascites. No hepatosplenomegaly. Extremities are pink with trace edema. Pulses are adequate. No skin breakdowns. Lab reviewed and discussed with patient 1. Primary hypertension Stable, continue losartan and metoprolol stable, continue 2. Type 2 diabetes mellitus without complication, without long-term current use of insulin (CMS/HCC) (HCC) Stable, cont dietary restrictions, Amaryl and gabapentin 3. Pancytopenia (HCC) Stable, hematology consultation placed 4. Closed fracture of cervical vertebra, unspecified cervical vertebral level, subsequent encounter Stable, follow-up with surgery as discussed Normal [facility] Basophil percentageOrdered B y: Stef Villegas on 11-01-2022 WBC (Bld) [#/Vol] 4.9 10*3/uL 4.4-11.0 [facility] Blood erythrocytes count (nu mber/volume)Ordered By: Stef Villegas on 11-01-2022 RBC (Bld) [#/Vol] 3.26 10*6/uL 4.2-5.4 [facility] Blood hemoglobin measurement (mass/volume)Ordered By: Stef Villegas on 11-01-2022 Hemoglobin (Bld) [Mass/Vol] 8.9 g/dL 12.0-15.0 [facility] Blood platelet mean volumeOr dered By: Stef Villegas on 11-01-2022 Platelet mean volume (Bld) [Entitic vol] 10.0 fL 6.2-12.0 [facility] Determination of erythrocyte mean corpuscular volume (MCV)Ordered By: Stef Villegas on 11-01-2022 MCV (RBC) [Entitic vol] 96.0 fL 81-99 [facility] Hematocrit Auto (Bld) [Volum e fraction]Ordered By: Stef Villegas on 11-01-2022 Hematocrit (Bld) [Volume fraction] 31.3 % 37-47 [facility] Iron measurement (mass/mass) Ordered By: Stef Villegas on 11-01-2022 Iron (Unsp spec) [Mass/Mass] 29 ug/dL 50-170 [facility] Laboratory - Chemistry and C hemistry - challengeOrdered By: Stef Villegas on 11-01-2022 Cobalamin (Vitamin B12) [Mass/Vol] 208 pg/mL 211-911 [facility] Laboratory - Hematology and Cell countsOrdered By: Stef Villegas on 11-01-2022 Erythrocyte distribution width (RBC) [Entitic vol] 49.5 fL 35.1-43.9 [facility] Erythrocyte distribution width (RBC) [Ratio] 14.2 % 11.6-14.6 [facility] MCH (RBC) [Entitic mass] 27.3 pg 27.0-32.0 [facility] MCHC Auto (RBC) [Mass/Vol]Or dered By: Stef Villegas on 11-01-2022 MCHC (RBC) [Mass/Vol] 28.4 g/dL 32-36 [facility] No Panel InformationOrdered By: Stef Villegas on 11-01-2022 Total Iron Binding Capacity 212 ug/dL 250-450 [facility] Platelets bldOrdered By: Elida Barahonadenny on 11-01-2022 Platelets (Bld) [#/Vol] 94 10*3/uL 150-450 [facility] Comment on above: PREVIOUS RESULTS <10 0. Serum or plasma ferritin carter surement (mass/volume)Ordered By: Stef Villegas on 11-01-2022 Ferritin [Mass/Vol] 45 ng/mL 8-252 [facility] Serum or plasma folate measu rement (mass/volume)Ordered By: Stef Villegas on 11-01-2022 Folate [Mass/Vol] 6.00 ng/mL 3.1-55.4 [facility] Serum or plasma iron saturat ion measurement (mass fraction)Ordered By: Stef Villegas on 11-01-2022 Iron saturation [Mass fraction] 13.7 % 15.0-55.[address] [facility] [address] SPINE CERVICAL W/O CONTRA STon 10-30-2022 CT SPINE CERVICAL W/O CONTRAST ORIGINAL EXAMINATION: CT OF THE CERVICAL SPINE WITHOUT CONTRAST 10/26/2022 4:15 pm TECHNIQUE: CT of the cervical spine was performed without the administration of intravenous contrast. Multiplanar reformatted images are provided for review. Automated exposure control, iterative reconstruction, and/or weight based adjustment of the mA/kV was utilized to reduce the radiation dose to as low as reasonably achievable. COMPARISON: CT cervical spine 07/14/2022 HISTORY: ORDERING SYSTEM PROVIDED HISTORY: Reason for Exam: cervical fracture FINDINGS: BONES/ALIGNMENT: Posterior fusion hardware C2 through T2 is intact without signs of loosening. C2-6 laminectomies. Chronic pedicular fractures at C6 with similar 4-5 mm of anterior subluxation of C6 on C7 is overall similar in appearance to the prior study. DEGENERATIVE CHANGES: No significant degenerative changes. SOFT TISSUES: There is no prevertebral soft tissue swelling. IMPRESSION: Chronic C6 pedicle fractures with 4-5 mm of anterior subluxation of C6 on C7, overall similar in appearance to the prior. C2 through T2 fusion hardware is intact without signs of loosening. Interpreted by: Armani Singh Preliminary Report By: Armani Singh Electronically signed By Armani Singh Dictated Date: 10/30/2022 11:51:34 AM Prelim Date: 10/30/2022 12:08:00 PM Sign Date: 10/30/2022 12:08:00 PM Ordering Provider: TRACE Baron [facility] ([place]) Progress Noteon 10-20-2022 Progress Note Well-controlled hypertensive diabetic healing from a cervical spine fracture from a fall in late June. Will be seeing surgeon in follow-up. Most substantially there is an issue with her being discharged to a safe environment. Probably will be going to assisted care facility soon. There is some very personal issues with her who incarcerated in his past. Not a safe living environment for her. Today she is having some lower quadrant abdominal cramping and diarrhea probably due to MiraLAX and stool softener. She was on Cipro about 4 weeks ago. Resolved UTI symptoms. No history of C. difficile. She has no emesis or fever or melena or blood. Neck stiffness is improved. Her vital signs are stable. Glucose levels are well. Denies recent cough chest pain wheezing or shortness of breath. No upper abdominal pain. No emesis melena or dysphagia. She denies dysuria. Oxycodone use is less. Most markedly she is a documented chronic anemia. Initially indices were slightly elevated. Also with documented iron deficiency anemia. She has had a remote colonoscopy. In review she was told she had anemia before but no true work-up. Will be seeing family physician in the future. Alert and cooperative. Neck brace is stable. No adenopathy palpable. Heart is regular without gallops murmurs or ectopy. Lungs are diminished but clear. Abdomen very obese without pain hepatosplenomegaly masses or ascites. No obvious adenopathy. No skin changes. Lower extremities are clean. No edema. No obvious deficit in strength. Reviewed recent lab which actually showed a mild pancytopenia. 1. Diarrhea due to drug New onset, improving, stop MiraLAX. Clear liquids for 24 hours. Observe for C. difficile infection 2. Type 2 diabetes mellitus without complication, without long-term current use of insulin (CMS/HCC) (HCC) Stable, continue Amaryl 3. Chronic anemia Pancytopenia appears chronic. Follow-up with PCP to discuss possible panendoscopy or and/or hematology consultation 4. History of breast cancer Stable, follow-up with PCP for appropriate screening 5. Closed fracture of cervical vertebra, unspecified cervical vertebral level, subsequent encounter Healing, follow-up with orthopedist. Continue gabapentin and oxycodone and PT. 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 Normal [facility] XR SPINE CERVICAL AP/LAT/FLE X/EXTon 10-06-2022 XR SPINE CERVICAL AP/LAT/FLEX/EXT ORIGINAL EXAMINATION: FIVE XRAY VIEWS OF THE CERVICAL SPINE INCLUDING FLEX/EX VIEWS10/05/2022 9:29 am CERVICAL SPINE W/ FLEX and EXT COMPARISON: None 08/12/2022 HISTORY: ORDERING SYSTEM PROVIDED HISTORY: Reason for Exam: post-op evaluation FINDINGS: Posterior cervical fusion seen from C2 through approximately T1. Vertebral body heights appear normal. Slight anterolisthesis of C4 with respect to C5 is similar to the prior exam. Bridging osteophytes noted anteriorly. Chronic deformity seen of the C7 transverse process. Facet joints are not well visualized. There is no appreciable change in alignment on the flexion or extension views. Limited mobility noted. IMPRESSION: Postsurgical changes and degenerative changes are similar to the prior exam Interpreted by: Richar Hassan MD Preliminary Report By: Richar Hassan MD Electronically signed By Richar Hassan MD Dictated Date: 10/06/2022 11:44:38 AM Prelim Date: 10/06/2022 11:46:14 AM Sign Date: 10/06/2022 11:46:14 AM Ordering Provider: RENETTA [facility] ([place]) XR SPINE THORACIC 2 VIEWSon 10-06-2022 XR SPINE THORACIC 2 VIEWS ORIGINAL EXAMINATION: TWO XRAY VIEWS OF THE THORACIC SPINE10/05/2022 9:29 am COMPARISON: None. HISTORY: ORDERING SYSTEM PROVIDED HISTORY: Reason for Exam: post-op evaluation FINDINGS: Enlargement of the cardiac silhouette noted. Vertebral body heights in the thoracic spine appear normal. There are multilevel marginal disc osteophytes. Discoid opacities in the lower lungs likely relate to atelectasis. A granuloma seen in the lateral aspect of the mid left lung. IMPRESSION: No compression deformities. Degenerative changes Interpreted by: Richar Hassan MD Preliminary Report By: Richar Hassan MD Electronically signed By Richar Hassan MD Dictated Date: 10/06/2022 11:46:18 AM Prelim Date: 10/06/2022 11:47:34 AM Sign Date: 10/06/2022 11:47:34 AM Ordering Provider: RENETTA Baron [facility] ([place]) Basophil percentageon 2021 Basophil percentage 0 SEEN /hpf 0-5 [facility] Work Phone: Bilirubin Test strip Ql (U)o n 10-05-2022 Bilirubin Ql (U) Negative Negative [facility] Work Phone: Ketones Test strip Ql (U)on 10-05-2022 Ketones Ql (U) Negative Negative [facility] Work Phone: Mucus LM Ql (Urine sed)on Mucus Ql (Urine sed) 0 SEEN /hpf [facility] Work Phone: Nitrite Test strip Ql (U)on 10-05-2022 Nitrite Ql (U) Negative Negative [facility] Work Phone: Protein Test strip Ql (U)on 10-05-2022 Protein Ql (U) Negative Negative [facility] Work Phone: Squamous epithelial cells de tection in urine sediment by light microscopyon 10-05-2022 Epithelial cells.squamous LM Ql (Urine sed) 0 SEEN /hpf 5-10 [facility] Work Phone: Urine blood detectionon 09-15 RBC Ql (U) Negative Negative [facility] Work Phone: RBC Ql (U) 0 SEEN /hpf 0-5 [facility] Work Phone: Urine clarityon 10-05-2022 Clarity (U) Clear Clear [facility] Work Phone: Urine color determinationon 10-05-2022 Color (U) Yellow Yellow [facility] Work Phone: Urine glucose detectionon Glucose Ql (U) Normal mg/dl Normal [facility] Work Phone: Urine leukocyte esterase det ection by dipstickon 10-05-2022 Leukocyte esterase Test strip Ql (U) Negative Negative [facility] Work Phone: Urine pHon 10-05-2022 pH (U) 7.0 [pH] 5.0 - 8.0 [facility] Work Phone: Urine sediment bacteria coun t by microscopy (number/high power field)on 10-05-2022 Bacteria LM.HPF (Urine sed) [#/Area] 0 /[HPF] None Seen [facility] Work Phone: Urine specific gravity measu rementon 10-05-2022 Specific gravity (U) [Rel density] 1.010 1.002-1.030 [facility] Work Phone: Urobilinogen Auto test strip Ql (U)on 10-05-2022 Urobilinogen Ql (U) Normal mg/dl Normal [facility] Work Phone: Absolute lymphocyte counton 09-29-2022 Lymphocytes Auto (Unsp spec) [#/Vol] 0.69 10*3/uL 0.83-4.51 [facility] Work Phone: Basophil percentageon 2021 Basophils/100 WBC (Bld) 0.3 % 0-1 [facility] Work Phone: Eosinophils/100 WBC (Bld) 2.1 % 0-5 [facility] Work Phone: Neutrophils (Bld) [#/Vol] 2.3 10*3/uL 2.0-7.7 [facility] Work Phone: Neutrophils/100 WBC (Bld) 69.9 % 47-70 [facility] Work Phone: WBC (Bld) [#/Vol] 3.3 10*3/uL 4.4-11.0 [facility] Work Phone: Blood erythrocytes count (nu mber/volume)on 09-29-2022 RBC (Bld) [#/Vol] 3.17 10*6/uL 4.2-5.4 [facility]: Blood hemoglobin measurement (mass/volume)on 09-29-2022 Hemoglobin (Bld) [Mass/Vol] 8.8 g/dL 12.0-15.0 [facility] Work Phone: Blood lymphocytes/100 leukoc yteson 09-29-2022 Lymphocytes/100 WBC (Bld) 21.0 % 19-41 [facility] Work Phone: Blood monocytes/100 leukocyt eson 09-29-2022 Monocytes/100 WBC (Bld) 6.1 % 0-10 [facility] Work Phone: Blood platelet mean volumeon 09-29-2022 Platelet mean volume (Bld) [Entitic vol] 10.0 fL 6.2-12.0 [facility] Work Phone: Determination of erythrocyte mean corpuscular volume (MCV)on 09-29-2022 MCV (RBC) [Entitic vol] 97.2 fL 81-99 [facility] Work Phone: Hematocrit Auto (Bld) [Volum e fraction]on 09-29-2022 Hematocrit (Bld) [Volume fraction] 30.8 % 37-47 [facility] Work Phone: Laboratory - Hematology and Cell countson 09-29-2022 Erythrocyte distribution width (RBC) [Entitic vol] 49.7 fL 35.1-43.9 [facility] Work Phone: Erythrocyte distribution width (RBC) [Ratio] 14.0 % 11.6-14.6 [facility] Work Phone: Immature granulocytes/100 WBC (Bld) 0.600 % 0.0-0.9 [facility] Work Phone: Comment on above: IG% - Immature Granu locytes (promyelocytes, myelocytes and metamyelocytes) > 1% indicates that a LEFT SHIFT is Present. MCH (RBC) [Entitic mass] 27.8 pg 27.0-32.0 [facility] Work Phone: Nucleated RBC/100 WBC (Bld) [Ratio] 0.9 % 0-5 [facility] Work Phone: MCHC Auto (RBC) [Mass/Vol]on 09-29-2022 MCHC (RBC) [Mass/Vol] 28.6 g/dL 32-36 [facility] Work Phone: Platelets bldon 09-29-2022 Platelets (Bld) [#/Vol] 83 10*3/uL 150-450 [facility] Work Phone: [phone] Basophil percentageon 2021 Basophil percentage 5-10 SEEN /hpf 0-5 [facility] Work Phone: Bilirubin Test strip Ql (U)o n 09-08-2022 Bilirubin Ql (U) Negative Negative [facility] Work Phone: Ketones Test strip Ql (U)on 09-08-2022 Ketones Ql (U) Negative Negative [facility] Work Phone: Mucus LM Ql (Urine sed)on Mucus Ql (Urine sed) 1+ /hpf [facility] Work Phone: Nitrite Test strip Ql (U)on 09-08-2022 Nitrite Ql (U) Positive Negative [facility] Work Phone: Protein Test strip Ql (U)on 09-08-2022 Protein Ql (U) Negative Negative [facility] Work Phone: Squamous epithelial cells de tection in urine sediment by light microscopyon 09-08-2022 Epithelial cells.squamous LM Ql (Urine sed) 0-5 SEEN /hpf 5-10 [facility] Work Phone: Urine blood detectionon 08-15 RBC Ql (U) 10 /ul Negative [facility] Work Phone: RBC Ql (U) 0-5 SEEN /hpf 0-5 [facility] Work Phone: Urine clarityon 09-08-2022 Clarity (U) Sl. Cloudy Clear [facility] Work Phone: Urine color determinationon 09-08-2022 Color (U) Yellow Yellow [facility] Work Phone: Urine glucose detectionon Glucose Ql (U) Normal mg/dl Normal [facility] Work Phone: Urine leukocyte esterase det ection by dipstickon 09-08-2022 Leukocyte esterase Test strip Ql (U) 500 /ul Negative [facility] Work Phone: Urine pHon 09-08-2022 pH (U) 6.5 [pH] 5.0 - 8.0 [facility] Work Phone: Urine sediment bacteria coun t by microscopy (number/high power field)on 09-08-2022 Bacteria LM.HPF (Urine sed) [#/Area] 2 /[HPF] None Seen [facility] Work Phone: Urine specific gravity measu rementon 09-08-2022 Specific gravity (U) [Rel density] 1.010 1.002-1.030 [facility] Work Phone: Urobilinogen Auto test strip Ql (U)on 09-08-2022 Urobilinogen Ql (U) Normal mg/dl Normal [facility] Work Phone: Absolute lymphocyte counton 09-01-2022 Lymphocytes Auto (Unsp spec) [#/Vol] 0.68 10*3/uL 0.83-4.51 [facility] Work Phone: Basophil percentageon 2021 Basophils/100 WBC (Bld) 0.3 % 0-1 [facility] Work Phone: [phone] Bilirubin [Mass/Vol] 0.50 mg/dL 0.20-1.00 [facility] Work Phone: Comment on above: For patients on eltr ombopag therapy, use of Dimension Strang TBIL is not recommended. Chloride [Moles/Vol] 106 mmol/L 98-107 [facility] Work Phone: Eosinophils/100 WBC (Bld) 1.5 % 0-5 [facility] Work Phone: [phone] Glucose [Mass/Vol] 86 mg/dL 74-106 [facility] Work Phone: Neutrophils (Bld) [#/Vol] 2.4 10*3/uL 2.0-7.7 [facility] Work Phone: Neutrophils/100 WBC (Bld) 71.9 % 47-70 [facility] Work Phone: Potassium [Moles/Vol] 3.9 mmol/L 3.5-5.1 [facility] Work Phone: [phone] Protein [Mass/Vol] 6.4 g/dL 6.4-8.2 [facility] Work Phone: Sodium [Moles/Vol] 147 mmol/L 136-145 [facility] Work Phone: WBC (Bld) [#/Vol] 3.4 10*3/uL 4.4-11.0 [facility] Work Phone: Blood erythrocytes count (nu mber/volume)on 09-01-2022 RBC (Bld) [#/Vol] 2.97 10*6/uL 4.2-5.4 [facility] Work Phone: [phone] Blood hemoglobin measurement (mass/volume)on 09-01-2022 Hemoglobin (Bld) [Mass/Vol] 8.6 g/dL 12.0-15.0 [facility] Work Phone: Blood lymphocytes/100 leukoc yteson 09-01-2022 Lymphocytes/100 WBC (Bld) 20.3 % 19-41 [facility] Work Phone: [phone] Blood monocytes/100 leukocyt eson 09-01-2022 Monocytes/100 WBC (Bld) 5.7 % 0-10 [facility] Work Phone: [phone] Blood platelet adequacy dete ction by light microscopyon 09-01-2022 Platelets LM Ql (Bld) MOD DEC ADEQ [facility] Work Phone: Blood platelet mean volumeon 09-01-2022 Platelet mean volume (Bld) [Entitic vol] 9.3 fL 6.2-12.0 [facility] Work Phone: Determination of erythrocyte mean corpuscular volume (MCV)on 09-01-2022 MCV (RBC) [Entitic vol] 97.6 fL 81-99 [facility] Work Phone: Hematocrit Auto (Bld) [Volum e fraction]on 09-01-2022 Hematocrit (Bld) [Volume fraction] 29.0 % 37-47 [facility] Work Phone: Laboratory - Chemistry and C hemistry - challengeon 09-01-2022 ALP [Catalytic activity/Vol] 65 U/L 45-117 [facility] Work Phone: ALT [Catalytic activity/Vol] 19 U/L 13-56 [facility] Work Phone: [phone] CO2 [Moles/Vol] 40.0 mmol/L 21.0-32.0 [facility] Work Phone: Globulin (S) [Mass/Vol] 3.4 g/dL 2.2-4.2 [facility] Work Phone: Urea nitrogen/Creatinine [Mass ratio] 21.1 mg/mg 10-20 [facility] Work Phone: [phone] Laboratory - Hematology and Cell countson 09-01-2022 Erythrocyte distribution width (RBC) [Entitic vol] 49.0 fL 35.1-43.9 [facility] Work Phone: Erythrocyte distribution width (RBC) [Ratio] 13.7 % 11.6-14.6 [facility] Work Phone: Immature granulocytes/100 WBC (Bld) 0.300 % 0.0-0.9 [facility] Work Phone: Comment on above: IG% - Immature Granu locytes (promyelocytes, myelocytes and metamyelocytes) > 1% indicates that a LEFT SHIFT is Present. MCH (RBC) [Entitic mass] 29.0 pg 27.0-32.0 [facility] Work Phone: Nucleated RBC/100 WBC (Bld) [Ratio] 0 % 0-5 [facility] Work Phone: MCHC Auto (RBC) [Mass/Vol]on 09-01-2022 MCHC (RBC) [Mass/Vol] 29.7 g/dL 32-36 [facility] Work Phone: No Panel Informationon 09-01 Estimated GFR (MDRD) Amer 112 mL/min >60 [facility] Work Phone: Comment on above: GFR Calc Estimated GFR (MDRD) Non-Af Amer 93 mL/min >60 [facility] Work Phone: Comment on above: Non- GFR Calc Thyroid Stimulating Hormone (TSH) 2.06 uIU/mL 0.358-3.74 [facility] Work Phone: Platelets bldon 09-01-2022 Platelets (Bld) [#/Vol] 99 10*3/uL 150-450 [facility] Work Phone: RBC morphologyon 09-01-2022 RBC morphology finding Nom (Bld) NORM C+C NORMAL NORM C&C [facility] Work Phone: Serum or plasma albumin celina urement (mass/volume)on 09-01-2022 Albumin [Mass/Vol] 3.0 g/dL 3.2-5.0 [facility] Work Phone: Serum or plasma albumin/glob ulin mass ratioon 09-01-2022 Albumin/Globulin [Mass ratio] 0.9 {ratio} 0.9-2.4 [facility] Work Phone: Serum or plasma calcium celina urement (mass/volume)on 09-01-2022 Calcium [Mass/Vol] 8.8 mg/dL 8.5-10.1 [facility] Work Phone: Serum or plasma creatinine m easurement (mass/volume)on 09-01-2022 Creatinine [Mass/Vol] 0.66 mg/dL 0.55-1.02 [facility] Work Phone: Comment on above: The validity of the calculated GFR & GFRAA in patients over 70 years has not been determined. Clinical correlation is essential. Serum or plasma urea nitroge n measurement (mass/volume)on 09-01-2022 Urea nitrogen [Mass/Vol] 14 mg/dL 7-18 [facility] Work Phone: [phone] Thin prep Papanicolaou smear with manual screeningon 09-01-2022 Thin prep Papanicolaou smear with manual screening 21 U/L 15-37 [facility] Work Phone: [phone] Thin prep Papanicolaou smear with manual screening 1 5-15 [facility] Work Phone: [phone] Absolute lymphocyte counton 08-26-2022 Lymphocytes Auto (Unsp spec) [#/Vol] 0.68 10*3/uL 0.83-4.51 [facility] Work Phone: [phone] Basophil percentageon 2021 Basophils/100 WBC (Bld) 0.2 % 0-1 [facility] Work Phone: [phone] Eosinophils/100 WBC (Bld) 1.2 % 0-5 [facility] Work Phone: Neutrophils (Bld) [#/Vol] 3.0 10*3/uL 2.0-7.7 [facility] Work Phone: [phone] Neutrophils/100 WBC (Bld) 74.7 % 47-70 [facility] Work Phone: WBC (Bld) [#/Vol] 4.0 10*3/uL 4.4-11.0 [facility] Work Phone: [phone] Blood erythrocytes count (nu mber/volume)on 08-26-2022 RBC (Bld) [#/Vol] 2.88 10*6/uL 4.2-5.4 [facility] Work Phone: [phone] Blood hemoglobin measurement (mass/volume)on 08-26-2022 Hemoglobin (Bld) [Mass/Vol] 8.5 g/dL 12.0-15.0 [facility] Work Phone: [phone] Blood lymphocytes/100 leukoc yteson 08-26-2022 Lymphocytes/100 WBC (Bld) 17.0 % 19-41 [facility] Work Phone: Blood monocytes/100 leukocyt eson 08-26-2022 Monocytes/100 WBC (Bld) 6.7 % 0-10 [facility] Work Phone: Blood platelet mean volumeon 08-26-2022 Platelet mean volume (Bld) [Entitic vol] 9.3 fL 6.2-12.0 [facility] Work Phone: Determination of erythrocyte mean corpuscular volume (MCV)on 08-26-2022 MCV (RBC) [Entitic vol] 101.0 fL 81-99 [facility] Work Phone: Hematocrit Auto (Bld) [Volum e fraction]on 08-26-2022 Hematocrit (Bld) [Volume fraction] 29.1 % 37-47 [facility] Work Phone: [phone] Laboratory - Hematology and Cell countson 08-26-2022 Erythrocyte distribution width (RBC) [Entitic vol] 50.9 fL 35.1-43.9 [facility] Work Phone: Erythrocyte distribution width (RBC) [Ratio] 13.8 % 11.6-14.6 [facility] Work Phone: Immature granulocytes/100 WBC (Bld) 0.200 % 0.0-0.9 [facility] Work Phone: Comment on above: IG% - Immature Granu locytes (promyelocytes, myelocytes and metamyelocytes) > 1% indicates that a LEFT SHIFT is Present. MCH (RBC) [Entitic mass] 29.5 pg 27.0-32.0 [facility] Work Phone: Nucleated RBC/100 WBC (Bld) [Ratio] 0 % 0-5 [facility] Work Phone: MCHC Auto (RBC) [Mass/Vol]on 08-26-2022 MCHC (RBC) [Mass/Vol] 29.2 g/dL 32-36 [facility] Work Phone: Platelets bldon 08-26-2022 Platelets (Bld) [#/Vol] 105 10*3/uL 150-450 [facility] Work Phone: Basophil percentageon 2021 Chloride [Moles/Vol] 99 mmol/L 98-107 [facility] Work Phone: Cholesterol [Mass/Vol] 149 mg/dL <200 [facility] Work Phone: Comment on above: <200 mg/dL Desirable 200-240 mg/dL Borderline >240 mg/dL High Risk Glucose [Mass/Vol] 148 mg/dL 74-106 [facility] Work Phone: Comment on above: Fasting Glucose resu lt greater than or equal to 126 mg/dL suggests DIABETES MELLITUS per A.D.A. criteria. Potassium [Moles/Vol] 4.2 mmol/L 3.5-5.1 [facility] Work Phone: Sodium [Moles/Vol] 141 mmol/L 136-145 [facility] Work Phone: Triglyceride [Mass/Vol] 188 mg/dL <199 [facility] Work Phone: Comment on above: The drugs N-Acetylcy steine and Metamizole may falsely depress this assay.Serum Triglycerides Reference Interval Normal <150 mg/dL Borderline high 150 - 199 mg/dL High 200 - 499 mg/dL Very High > or = 500 mg/dL WBC (Bld) [#/Vol] 4.8 10*3/uL 4.4-11.0 [facility] Work Phone: Blood erythrocytes count (nu mber/volume)on 08-02-2022 RBC (Bld) [#/Vol] 2.91 10*6/uL 4.2-5.4 [facility] Work Phone: Blood hemoglobin measurement (mass/volume)on 08-02-2022 Hemoglobin (Bld) [Mass/Vol] 8.6 g/dL 12.0-15.0 [facility] Work Phone: Blood platelet mean volumeon 08-02-2022 Platelet mean volume (Bld) [Entitic vol] 9.1 fL 6.2-12.0 [facility] Work Phone: Determination of erythrocyte mean corpuscular volume (MCV)on 08-02-2022 MCV (RBC) [Entitic vol] 102.4 fL 81-99 [facility] Work Phone: Hematocrit Auto (Bld) [Volum e fraction]on 08-02-2022 Hematocrit (Bld) [Volume fraction] 29.8 % 37-47 [facility] Work Phone: Iron measurement (mass/mass) on 08-02-2022 Iron (Unsp spec) [Mass/Mass] 43 ug/dL 50-170 [facility] Work Phone: Laboratory - Chemistry and C hemistry - challengeon 08-02-2022 Albumin [Mass/Vol] 3.3 g/dL 2.9-4.4 [facility] Work Phone: CO2 [Moles/Vol] 39.0 mmol/L 21.0-32.0 [facility] Work Phone: Cobalamin (Vitamin B12) [Mass/Vol] 350 pg/mL 211-911 [facility] Work Phone: Urea nitrogen/Creatinine [Mass ratio] 26.8 mg/mg 10-20 [facility] Work Phone: Laboratory - Hematology and Cell countson 08-02-2022 Erythrocyte distribution width (RBC) [Entitic vol] 52.6 fL 35.1-43.9 [facility] Work Phone: Erythrocyte distribution width (RBC) [Ratio] 14.2 % 11.6-14.6 [facility] Work Phone: MCH (RBC) [Entitic mass] 29.6 pg 27.0-32.0 [facility] Work Phone: MCHC Auto (RBC) [Mass/Vol]on 08-02-2022 MCHC (RBC) [Mass/Vol] 28.9 g/dL 32-36 [facility] Work Phone: No Panel Informationon 08-02 Addendum Document Comment . [facility] Work Phone: Comment on above: The SPE pattern appe ars unremarkable. Evidence ofmonoclonal protein is not apparent.Performed at: [facility] [address] [id number] Director: Mark Woo PhD, Phone: [phone] Vjhln-6-Pacgascvt 0.3 g/dL 0.0-0.4 [facility] Work Phone: Uddjq-7-Dkfrhpych 0.9 g/dL 0.4-1.0 [facility] Work Phone: Estimated GFR (MDRD) Amer 104 mL/min >60 [facility] Work Phone: Comment on above: GFR Calc Estimated GFR (MDRD) Non-Af Amer 86 mL/min >60 [facility] Work Phone: Comment on above: Non- GFR Calc Gamma Globulins 0.9 g/dL 0.4-1.8 [facility] Work Phone: Thyroid Stimulating Hormone (TSH) 1.91 uIU/mL 0.358-3.74 [facility] Work Phone: Total Iron Binding Capacity 268 ug/dL 250-450 [facility] Work Phone: Platelets bldon 08-02-2022 Platelets (Bld) [#/Vol] 120 10*3/uL 150-450 [facility] Work Phone: Protein Fractions Elph [Inte rp]on 08-02-2022 Protein Fractions [Interp] Comment . [facility] Work Phone: Comment on above: Protein electrophore sis scan will follow via computer,mail, or database support delivery. Serum albumin to globulin ra amairani by protein electrophoresison 08-02-2022 Albumin/Globulin Elph [Mass ratio] 1.0 0.7-1.7 [facility] Work Phone: Serum globulin measurement ( mass/volume)on 08-02-2022 Globulin (S) [Mass/Vol] 3.2 g/dL 2.2-3.9 [facility] Work Phone: Serum or plasma beta globuli n measurement by electrophoresis (mass/volume)on 08-02-2022 Beta globulin Elph [Mass/Vol] 1.0 g/dL 0.7-1.3 [facility] Work Phone: Serum or plasma calcium celina urement (mass/volume)on 08-02-2022 Calcium [Mass/Vol] 9.0 mg/dL 8.5-10.1 [facility] Work Phone: Serum or plasma cholesterol in HDL measurement (mass/volume)on 08-02-2022 Cholesterol in HDL [Mass/Vol] 53 mg/dL >40 [facility] Work Phone: Comment on above: The drugs N-Acetylcy steine and Metamizole may falsely depress this assay. Reference Range HDL <40 mg/dL Low HDL Cholesterol HDL >or= 60 mg/dL High HDL Cholesterol Serum or plasma cholesterol in VLDL measurement (mass/volume)on 08-02-2022 Cholesterol in VLDL [Mass/Vol] 38 mg/dL 5-40 [facility] Work Phone: Serum or plasma creatinine m easurement (mass/volume)on 08-02-2022 Creatinine [Mass/Vol] 0.71 mg/dL 0.55-1.02 [facility] Work Phone: Comment on above: The validity of the calculated GFR & GFRAA in patients over 70 years has not been determined. Clinical correlation is essential. Serum or plasma iron saturat ion measurement (mass fraction)on 08-02-2022 Iron saturation [Mass fraction] 16.0 % 15.0-55.0 [facility] Work Phone: Serum or plasma low density lipoprotein (LDL) cholesterol measurement (mass/volume)on 08-02-2022 Cholesterol in LDL [Mass/Vol] 58 mg/dL 0-130 [facility] Work Phone: Serum or plasma urea nitroge n measurement (mass/volume)on 08-02-2022 Urea nitrogen [Mass/Vol] 19 mg/dL 7-18 [facility] Work Phone: Thin prep Papanicolaou smear with manual screeningon 08-02-2022 Thin prep Papanicolaou smear with manual screening 3 5-15 [facility] Work Phone: Thin prep Papanicolaou smear with manual screening See comment [facility] Work Phone: Comment on above: Result: Not Observed Total protein bloodon 2021 Protein [Mass/Vol] 6.5 g/dL 6.0-8.5 [facility] Work Phone: Whole blood hemoglobin A1c/t otal hemoglobin ratio (mass fraction)on 08-02-2022 HbA1c (Bld) [Mass fraction] 5.7 % 3.8-5.6 [facility] Work Phone: Comment on above: Normal < 5.7 % Predi abetic 5.7 - 6.4 % Diabetic >or= 6.5 % Please note range changes. LABORATORYOrdered By: Chelsy Kay on 07-27-2022 Blood Glucose Testing Reason Routine (07/27/22 9:16 AM) [facility] Work Phone: Glucose [Mass/Vol] 177 mg/dL Invalid Interpretation Code 82 - 115 mg/dL [facility] Work Phone: LABORATORYOrdered By: Caitie Roman on 07-27-2022 Date of Onset [id number] Invalid Interpretation Code Auto Viro/Sero SS Employed in Healthcare No (07/27/22 9:01 AM) Invalid Interpretation Code Auto Viro/Sero SS First Test Unknown (07/27/22 9:01 AM) Invalid Interpretation Code AH Auto Viro/Sero SS FLUAV RNA ISA+probe Ql (Resp) Negative 7 (07/27/22 9:01 AM) Invalid Interpretation Code Negative AH Auto Viro/Sero SS Comment on above: Result Comment: Note s FLUBV RNA ISA+probe Ql (Resp) Negative 8 (07/27/22 9:01 AM) Invalid Interpretation Code Negative AH Auto Viro/Sero SS Comment on above: Result Comment: Note s Hospitalized Yes (07/27/22 9:01 AM) Invalid Interpretation Code AH Auto Viro/Sero SS ICU No (07/27/22 9:01 AM) Invalid Interpretation Code AH Auto Viro/Sero SS Not (07/27/22 9:01 AM) Invalid Interpretation Code AH Auto Viro/Sero SS Resides in Congregate Care Setting No (07/27/22 9:01 AM) Invalid Interpretation Code AH Auto Viro/Sero SS RSV PCR Negative 9 (07/27/22 9:01 AM) Invalid Interpretation Code Negative AH Auto Viro/Sero SS Comment on above: Result Comment: Note s [id number] SARS-CoV-2 (COVID-19) RNA ISA+probe Ql (Resp) Negative 6 (07/27/22 9:01 AM) Invalid Interpretation Code Negative AH Auto Viro/Sero SS Comment on above: Result Comment: [place] [id number] Symptomatic as Defined by CDC No (07/27/22 9:01 AM) Invalid Interpretation Code AH Auto Viro/Sero SS LABORATORYOrdered By: Jareth Farrell on 07-26-2022 Blood Glucose Testing Reason Routine (07/26/22 10:22 PM) [facility] Work Phone: Glucose [Mass/Vol] 176 mg/dL Invalid Interpretation Code 82 - 115 mg/dL [facility] Work Phone: Blood Glucose Testing Reason Routine (07/26/22 5:08 PM) [facility] Work Phone: Glucose [Mass/Vol] 232 mg/dL Invalid Interpretation Code 82 - 115 mg/dL [facility] Work Phone: LABORATORYOrdered By: Marcelina Freeman on 07-25-2022 Blood Glucose Interventions Administered agent to decrease blood sugar (07/25/22 4:57 PM) [facility] Work Phone: Blood Glucose Interventions Administered agent to decrease blood sugar (07/25/22 12:59 PM) [facility] Work Phone: LABORATORYOrdered By: Luana Bliss on 07-24-2022 Blood Glucose Interventions Administered agent to decrease blood sugar (07/24/22 1:00 PM) [facility] Work Phone: LABORATORYOrdered By: Poli Torres on 07-22-2022 Date of Onset [id number] Invalid Interpretation Code AH Auto Viro/Sero SS Employed in Healthcare No (07/22/22 6:30 AM) Invalid Interpretation Code AH Auto Viro/Sero SS First Test Yes (07/22/22 6:30 AM) Invalid Interpretation Code AH Auto Viro/Sero SS Hospitalized Yes (07/22/22 6:30 AM) Invalid Interpretation Code AH Auto Viro/Sero SS ICU No (07/22/22 6:30 AM) Invalid Interpretation Code AH Auto Viro/Sero SS Not (07/22/22 6:30 AM) Invalid Interpretation Code AH Auto Viro/Sero SS Resides in Congregate Care Setting No (07/22/22 6:30 AM) Invalid Interpretation Code AH Auto Viro/Sero SS SARS-CoV-2 (COVID-19) RNA ISA+probe Ql (Resp) Negative (07/22/22 6:30 AM) Invalid Interpretation Code Negative AH Auto Viro/Sero SS Symptomatic as Defined by CDC No (07/22/22 6:30 AM) Invalid Interpretation Code AH Auto Viro/Sero SS LABORATORYOrdered By: SYSTEM SYSTEM on 07-20-2022 Calcium [Mass/Vol] 8.8 mg/dL Invalid Interpretation Code 8.7 - 10.4 mg/dL AH ADM SS Chloride [Moles/Vol] 99 mmol/L Invalid Interpretation Code 98 - 110 mEq/L AH ADM SS Creatinine [Mass/Vol] 0.54 mg/dL Invalid Interpretation Code 0.50 - 1.20 mg/dL AH ADM SS GFR/1.73 sq M.predicted among blacks MDRD (S/P/Bld) [Vol rate/Area] ml/min/1.73sqm Invalid Interpretation Code AH ADM SS GFR/1.73 sq M.predicted among non-blacks MDRD (S/P/Bld) [Vol rate/Area] ml/min/1.73sqm Invalid Interpretation Code AH ADM SS Glucose [Mass/Vol] 144 mg/dL Invalid Interpretation Code 82 - 115 mg/dL AH ADM SS Magnesium [Mass/Vol] 1.8 mg/dL Invalid Interpretation Code 1.6 - 2.4 mg/dL AH ADM SS Potassium [Moles/Vol] 3.5 mmol/L Invalid Interpretation Code 3.5 - 5.0 mEq/L ADM SS Sodium [Moles/Vol] 144 mmol/L Invalid Interpretation Code 136 - 145 mEq/L ADM SS Urea nitrogen [Mass/Vol] 14.0 mg/dL Invalid Interpretation Code 8.0 - 22.0 mg/dL ADM SS Urea nitrogen/Creatinine [Mass ratio] 25.9 ratio Invalid Interpretation Code 10.0 - 22.0 ratio ADM SS LABORATORYOrdered By: Kang grimaldo on 07-20-2022 CO2 [Moles/Vol] mEq/L Invalid Interpretation Code 22 - 32 mEq/L ADM SS Comment on above: Result Comment: read back by Ken Lopez RN Electrolyte Balance Unable to Calculate Invalid Interpretation Code 4.0 - 15.0 ADM SS Comment on above: Result Comment: Unab le to calculate this test result accurately. Results used to calculate this test are outside the reportable range. LABORATORYOrdered By: SYSTEM SYSTEM on 07-19-2022 Basophils (Bld) [#/Vol] 0.0 103/mcL Invalid Interpretation Code 0.0 - 0.3 10^3/mcL Workflow SS Basophils/100 WBC (Bld) 0.1 % Invalid Interpretation Code 0.0 - 2.5 % Workflow SS Calcium [Mass/Vol] 8.7 mg/dL Invalid Interpretation Code 8.7 - 10.4 mg/dL ADM SS Chloride [Moles/Vol] 101 mmol/L Invalid Interpretation Code 98 - 110 mEq/L ADM SS Creatinine [Mass/Vol] 0.47 mg/dL Invalid Interpretation Code 0.50 - 1.20 mg/dL ADM SS Eosinophils (Bld) [#/Vol] 0.1 103/mcL Invalid Interpretation Code 0.0 - 0.7 10^3/mcL Workflow SS Eosinophils/100 WBC (Bld) 1.3 % Invalid Interpretation Code 0.0 - 6.0 % Workflow SS Erythrocyte distribution width (RBC) [Ratio] 14.7 % Invalid Interpretation Code 11.5 - 15.5 % AH Workflow SS GFR/1.73 sq M.predicted among blacks MDRD (S/P/Bld) [Vol rate/Area] ml/min/1.73sqm Invalid Interpretation Code AH ADM SS GFR/1.73 sq M.predicted among non-blacks MDRD (S/P/Bld) [Vol rate/Area] ml/min/1.73sqm Invalid Interpretation Code ADM SS Glucose [Mass/Vol] 171 mg/dL Invalid Interpretation Code 82 - 115 mg/dL ADM SS Hematocrit (Bld) [Volume fraction] 26.6 % Invalid Interpretation Code 34.0 - 46.0 % AH Workflow SS Hemoglobin (Bld) [Mass/Vol] 8.9 G/dL Invalid Interpretation Code 12.0 - 16.0 G/dL Workflow SS Lymphocytes (Bld) [#/Vol] 0.8 103/mcL Invalid Interpretation Code 0.9 - 4.3 10^3/mcL Workflow SS Lymphocytes/100 WBC (Bld) 9.9 % Invalid Interpretation Code 20.0 - 40.0 % Workflow SS Magnesium [Mass/Vol] 1.7 mg/dL Invalid Interpretation Code 1.6 - 2.4 mg/dL ADM SS MCH (RBC) [Entitic mass] 30.2 pg Invalid Interpretation Code 27.0 - 33.0 pg Workflow SS MCHC 33.4 G/dL Invalid Interpretation Code 32.0 - 36.0 G/dL Workflow SS MCV (RBC) [Entitic vol] 90.5 fL Invalid Interpretation Code 80.0 - 99.0 fL Workflow SS Monocytes (Bld) [#/Vol] 0.7 103/mcL Invalid Interpretation Code 0.1 - 1.4 10^3/mcL Workflow SS Monocytes/100 WBC (Bld) 7.9 % Invalid Interpretation Code 2.0 - 13.0 % Workflow SS Neutrophils (Bld) [#/Vol] 6.7 103/mcL Invalid Interpretation Code 2.3 - 8.1 10^3/mcL Workflow SS Neutrophils/100 WBC (Bld) 80.8 % Invalid Interpretation Code 50.0 - 75.0 % Workflow SS Phosphate [Mass/Vol] 3.1 mg/dL Invalid Interpretation Code 2.4 - 5.1 mg/dL ADM SS Platelet mean volume (Bld) [Entitic vol] 6.3 fL Invalid Interpretation Code 6.6 - 10.5 fL Workflow SS Platelets (Bld) [#/Vol] 132 103/mcL Invalid Interpretation Code 150 - 450 10^3/mcL Workflow SS Potassium [Moles/Vol] 3.4 mmol/L Invalid Interpretation Code 3.5 - 5.0 mEq/L AH ADM SS RBC (Bld) [#/Vol] 2.94 106/mcL Invalid Interpretation Code 4.10 - 5.30 10^6/mcL AH Workflow SS Sodium [Moles/Vol] 145 mmol/L Invalid Interpretation Code 136 - 145 mEq/L AH ADM SS Urea nitrogen [Mass/Vol] 13.0 mg/dL Invalid Interpretation Code 8.0 - 22.0 mg/dL AH ADM SS Urea nitrogen/Creatinine [Mass ratio] 27.7 ratio Invalid Interpretation Code 10.0 - 22.0 ratio AH ADM SS WBC (Bld) [#/Vol] 8.3 103/mcL Invalid Interpretation Code 4.5 - 10.8 10^3/mcL AH Workflow SS LABORATORYOrdered By: Dede Rodriguez on 07-19-2022 CO2 [Moles/Vol] mEq/L Invalid Interpretation Code 22 - 32 mEq/L AH ADM SS Electrolyte Balance see comment Invalid Interpretation Code 4.0 - 15.0 AH ADM SS Comment on above: Result Comment: Unab le to calculate this test result accurately. Results used to calculate this test are outside the reportable range. LABORATORYOrdered By: SYSTEM SYSTEM on 07-18-2022 Basophils (Bld) [#/Vol] 0.0 103/mcL Invalid Interpretation Code 0.0 - 0.3 10^3/mcL AH Workflow SS Basophils/100 WBC (Bld) 0.1 % Invalid Interpretation Code 0.0 - 2.5 % AH Workflow SS Eosinophils (Bld) [#/Vol] 0.1 103/mcL Invalid Interpretation Code 0.0 - 0.7 10^3/mcL AH Workflow SS Eosinophils/100 WBC (Bld) 1.0 % Invalid Interpretation Code 0.0 - 6.0 % AH Workflow SS Erythrocyte distribution width (RBC) [Ratio] 14.2 % Invalid Interpretation Code 11.5 - 15.5 % AH Workflow SS Hematocrit (Bld) [Volume fraction] 26.3 % Invalid Interpretation Code 34.0 - 46.0 % AH Workflow SS Hemoglobin (Bld) [Mass/Vol] 8.8 G/dL Invalid Interpretation Code 12.0 - 16.0 G/dL AH Workflow SS Lymphocytes (Bld) [#/Vol] 0.8 103/mcL Invalid Interpretation Code 0.9 - 4.3 10^3/mcL AH Workflow SS Lymphocytes/100 WBC (Bld) 12.9 % Invalid Interpretation Code 20.0 - 40.0 % AH Workflow SS Magnesium [Mass/Vol] 1.8 mg/dL Invalid Interpretation Code 1.6 - 2.4 mg/dL AH ADM SS MCH (RBC) [Entitic mass] 30.4 pg Invalid Interpretation Code 27.0 - 33.0 pg AH Workflow SS MCHC 33.3 G/dL Invalid Interpretation Code 32.0 - 36.0 G/dL AH Workflow SS MCV (RBC) [Entitic vol] 91.3 fL Invalid Interpretation Code 80.0 - 99.0 fL AH Workflow SS Monocytes (Bld) [#/Vol] 0.6 103/mcL Invalid Interpretation Code 0.1 - 1.4 10^3/mcL AH Workflow SS Monocytes/100 WBC (Bld) 9.2 % Invalid Interpretation Code 2.0 - 13.0 % AH Workflow SS Neutrophils (Bld) [#/Vol] 4.8 103/mcL Invalid Interpretation Code 2.3 - 8.1 10^3/mcL AH Workflow SS Neutrophils/100 WBC (Bld) 76.8 % Invalid Interpretation Code 50.0 - 75.0 % AH Workflow SS Phosphate [Mass/Vol] 2.7 mg/dL Invalid Interpretation Code 2.4 - 5.1 mg/dL AH ADM SS Platelet mean volume (Bld) [Entitic vol] 6.2 fL Invalid Interpretation Code 6.6 - 10.5 fL AH Workflow SS Platelets (Bld) [#/Vol] 112 103/mcL Invalid Interpretation Code 150 - 450 10^3/mcL AH Workflow SS RBC (Bld) [#/Vol] 2.88 106/mcL Invalid Interpretation Code 4.10 - 5.30 10^6/mcL AH Workflow SS WBC (Bld) [#/Vol] 6.3 103/mcL Invalid Interpretation Code 4.5 - 10.8 10^3/mcL AH Workflow SS Calcium [Mass/Vol] 8.6 mg/dL Invalid Interpretation Code 8.7 - 10.4 mg/dL ADM SS Chloride [Moles/Vol] 104 mmol/L Invalid Interpretation Code 98 - 110 mEq/L ADM SS CO2 [Moles/Vol] 39 mmol/L Invalid Interpretation Code 22 - 32 mEq/L ADM SS Creatinine [Mass/Vol] 0.55 mg/dL Invalid Interpretation Code 0.50 - 1.20 mg/dL ADM SS GFR/1.73 sq M.predicted among blacks MDRD (S/P/Bld) [Vol rate/Area] ml/min/1.73sqm Invalid Interpretation Code ADM SS GFR/1.73 sq M.predicted among non-blacks MDRD (S/P/Bld) [Vol rate/Area] ml/min/1.73sqm Invalid Interpretation Code ADM SS Glucose [Mass/Vol] 130 mg/dL Invalid Interpretation Code 82 - 115 mg/dL ADM SS Potassium [Moles/Vol] 3.4 mmol/L Invalid Interpretation Code 3.5 - 5.0 mEq/L ADM SS Comment on above: Result Comment: Spec imen slightly hemolyzed. Sodium [Moles/Vol] 147 mmol/L Invalid Interpretation Code 136 - 145 mEq/L ADM SS Sodium [Moles/Vol] 4.0 mmol/L Invalid Interpretation Code 4.0 - 15.0 mEq/L ADM SS Urea nitrogen [Mass/Vol] 16.0 mg/dL Invalid Interpretation Code 8.0 - 22.0 mg/dL ADM SS Urea nitrogen/Creatinine [Mass ratio] 29.1 ratio Invalid Interpretation Code 10.0 - 22.0 ratio ADM SS LABORATORYOrdered By: SYSTEM SYSTEM on 07-17-2022 Basophils (Bld) [#/Vol] 0.0 103/mcL Invalid Interpretation Code 0.0 - 0.3 10^3/mcL Workflow SS Basophils/100 WBC (Bld) 0.3 % Invalid Interpretation Code 0.0 - 2.5 % AH Workflow SS Eosinophils (Bld) [#/Vol] 0.0 103/mcL Invalid Interpretation Code 0.0 - 0.7 10^3/mcL Workflow SS Eosinophils/100 WBC (Bld) 0.1 % Invalid Interpretation Code 0.0 - 6.0 % Workflow SS Erythrocyte distribution width (RBC) [Ratio] 15.2 % Invalid Interpretation Code 11.5 - 15.5 % Workflow SS Hematocrit (Bld) [Volume fraction] 26.0 % Invalid Interpretation Code 34.0 - 46.0 % Workflow SS Hemoglobin (Bld) [Mass/Vol] 8.6 G/dL Invalid Interpretation Code 12.0 - 16.0 G/dL Workflow SS Lymphocytes (Bld) [#/Vol] 0.9 103/mcL Invalid Interpretation Code 0.9 - 4.3 10^3/mcL AH Workflow SS Lymphocytes/100 WBC (Bld) 13.2 % Invalid Interpretation Code 20.0 - 40.0 % AH Workflow SS MCH (RBC) [Entitic mass] 30.4 pg Invalid Interpretation Code 27.0 - 33.0 pg AH Workflow SS MCHC 33.1 G/dL Invalid Interpretation Code 32.0 - 36.0 G/dL AH Workflow SS MCV (RBC) [Entitic vol] 91.6 fL Invalid Interpretation Code 80.0 - 99.0 fL AH Workflow SS Monocytes (Bld) [#/Vol] 0.7 103/mcL Invalid Interpretation Code 0.1 - 1.4 10^3/mcL AH Workflow SS Monocytes/100 WBC (Bld) 9.4 % Invalid Interpretation Code 2.0 - 13.0 % AH Workflow SS Neutrophils (Bld) [#/Vol] 5.4 103/mcL Invalid Interpretation Code 2.3 - 8.1 10^3/mcL AH Workflow SS Neutrophils/100 WBC (Bld) 77.0 % Invalid Interpretation Code 50.0 - 75.0 % AH Workflow SS Platelet mean volume (Bld) [Entitic vol] 6.4 fL Invalid Interpretation Code 6.6 - 10.5 fL AH Workflow SS Platelets (Bld) [#/Vol] 121 103/mcL Invalid Interpretation Code 150 - 450 10^3/mcL AH Workflow SS RBC (Bld) [#/Vol] 2.84 106/mcL Invalid Interpretation Code 4.10 - 5.30 10^6/mcL AH Workflow SS Troponin I.cardiac DL <= 0.01 ng/mL [Mass/Vol] 107.91 ng/L Invalid Interpretation Code 0.00 - 34.00 ng/L AH ADM SS WBC (Bld) [#/Vol] 7.0 103/mcL Invalid Interpretation Code 4.5 - 10.8 10^3/mcL AH Workflow SS LABORATORYOrdered By: SYSTEM SYSTEM on 07-16-2022 Troponin I.cardiac DL <= 0.01 ng/mL [Mass/Vol] 167.57 ng/L Invalid Interpretation Code 0.00 - 34.00 ng/L AH ADM SS LABORATORYOrdered By: Dana Lucero on 07-15-2022 Barometric Pressure 710 mm[Hg] Invalid Interpretation Code AH Auto Chem SS Base excess Calc (Bld) [Moles/Vol] 5.8 mmol/L Invalid Interpretation Code Auto Chem SS CO2 (Bld) [Partial pressure] 45.1 mm[Hg] Invalid Interpretation Code 32.0 - 46.0 mm Hg AH Auto Chem SS CO2 [Moles/Vol] 31.9 mmol/L Invalid Interpretation Code 22.0 - 30.0 mmol/L AH Auto Chem SS HCO3 (Bld) [Moles/Vol] 30.5 mmol/L Invalid Interpretation Code 21.0 - 29.0 mmol/L Auto Chem SS Oxygen (Bld) [Partial pressure] 98.6 mm[Hg] Invalid Interpretation Code 74.0 - 108.0 mm Hg AH Auto Chem SS pH (Bld) 7.448 [pH] Invalid Interpretation Code 7.380 - 7.460 Auto Chem SS LABORATORYOrdered By: Ritu Nguyễn on 07-13-2022 Barometric Pressure 703 mm[Hg] Invalid Interpretation Code Auto Chem SS Base excess Calc (Bld) [Moles/Vol] 6.1 mmol/L Invalid Interpretation Code Auto Chem SS CO2 (Bld) [Partial pressure] 46.7 mm[Hg] Invalid Interpretation Code 32.0 - 46.0 mm Hg Auto Chem SS CO2 [Moles/Vol] 32.4 mmol/L Invalid Interpretation Code 22.0 - 30.0 mmol/L Auto Chem SS HCO3 (Bld) [Moles/Vol] 31.0 mmol/L Invalid Interpretation Code 21.0 - 29.0 mmol/L AH Auto Chem SS Oxygen (Bld) [Partial pressure] 125.5 mm[Hg] Invalid Interpretation Code 74.0 - 108.0 mm Hg AH Auto Chem SS pH (Bld) 7.440 [pH] Invalid Interpretation Code 7.380 - 7.460 Auto Chem SS Barometric Pressure 703 mm[Hg] Invalid Interpretation Code Auto Chem SS Base excess Calc (Bld) [Moles/Vol] 6.7 mmol/L Invalid Interpretation Code Auto Chem SS Calcium.ionized (Bld) [Mass/Vol] 0.93 mmol/L Invalid Interpretation Code 1.12 - 1.32 mmol/L AH Auto Chem SS CO2 (Bld) [Partial pressure] 38.8 mm[Hg] Invalid Interpretation Code 32.0 - 46.0 mm Hg Auto Chem SS CO2 [Moles/Vol] 31.3 mmol/L Invalid Interpretation Code 22.0 - 30.0 mmol/L Auto Chem SS HCO3 (Bld) [Moles/Vol] 30.1 mmol/L Invalid Interpretation Code 21.0 - 29.0 mmol/L Auto Chem SS Lactate [Moles/Vol] 1.1 mmol/L Invalid Interpretation Code 0.2 - 2.0 mmol/L Auto Chem SS Oxygen (Bld) [Partial pressure] 126.9 mm[Hg] Invalid Interpretation Code 74.0 - 108.0 mm Hg Auto Chem SS pH (Bld) 7.508 [pH] Invalid Interpretation Code 7.380 - 7.460 Auto Chem SS LABORATORYOrdered By: SYSTEM SYSTEM on 07-13-2022 CK [Catalytic activity/Vol] 266 U/L Invalid Interpretation Code 7 - 185 U/L ADM SS Phosphate [Mass/Vol] 2.5 mg/dL Invalid Interpretation Code 2.4 - 5.1 mg/dL ADM SS Troponin I.cardiac DL <= 0.01 ng/mL [Mass/Vol] 12.77 ng/L Invalid Interpretation Code 0.00 - 34.00 ng/L ADM SS LABORATORYOrdered By: Karissa Ruiz on 07-13-2022 INR Coag (PPP) [Relative time] 1.1 {INR} Invalid Interpretation Code Auto Coag SS PT Coag (PPP) [Time] 13.0 s Invalid Interpretation Code 9.0 - 14.9 seconds Auto Coag SS LABORATORYOrdered By: Carol Howell on 07-13-2022 Calcium.ionized (Bld) [Mass/Vol] 0.93 mmol/L Invalid Interpretation Code 1.12 - 1.32 mmol/L Auto Chem SS Glucose [Mass/Vol] 157 mg/dL Invalid Interpretation Code 82 - 115 mg/dL AH Auto Chem SS Hematocrit (Bld) [Volume fraction] 34.0 % Invalid Interpretation Code 37.0 - 47.0 % Auto Chem SS Hemoglobin (Bld) [Mass/Vol] 11.5 G/dL Invalid Interpretation Code 12.0 - 16.0 G/dL Auto Chem SS Patient Location [facility] (07/13/22 1:28 PM) Invalid Interpretation Code Auto Chem SS Potassium [Moles/Vol] 3.6 mmol/L Invalid Interpretation Code 3.5 - 5.0 mEq/L AH Auto Chem SS Sodium [Moles/Vol] 144 mmol/L Invalid Interpretation Code 136 - 145 mEq/L AH Auto Chem SS Calcium.ionized (Bld) [Mass/Vol] 1.05 mmol/L Invalid Interpretation Code 1.12 - 1.32 mmol/L AH Auto Chem SS Glucose [Mass/Vol] 163 mg/dL Invalid Interpretation Code 82 - 115 mg/dL AH Auto Chem SS Hematocrit (Bld) [Volume fraction] 31.0 % Invalid Interpretation Code 37.0 - 47.0 % AH Auto Chem SS Hemoglobin (Bld) [Mass/Vol] 10.6 G/dL Invalid Interpretation Code 12.0 - 16.0 G/dL AH Auto Chem SS Patient Location [facility] (07/13/22 10:12 AM) Invalid Interpretation Code AH Auto Chem SS Potassium [Moles/Vol] 3.6 mmol/L Invalid Interpretation Code 3.5 - 5.0 mEq/L AH Auto Chem SS Sodium [Moles/Vol] 143 mmol/L Invalid Interpretation Code 136 - 145 mEq/L AH Auto Chem SS LABORATORYOrdered By: Jannet Diego on 07-13-2022 Magnesium [Mass/Vol] 1.6 mg/dL Invalid Interpretation Code 1.6 - 2.4 mg/dL ADM SS ERTAPENEM:SUSC:PT:ISOLATE:OR DQN:MICon 07-12-2022 Ertapenem TATO [Susc] >100,000 cfu/ml Escherichia coli [facility] Work Phone: Ertapenem TATO [Susc]on 07-12 Escherichia coli Escherichia coli [facility] Work Phone: LABORATORYOrdered By: Dana Lucero on 07-12-2022 Appearance (U) Hazy *ABN* (07/12/22 2:00 AM) Invalid Interpretation Code Clear AH Auto Urine SS Bilirubin Ql (U) Negative (07/12/22 2:00 AM) Invalid Interpretation Code Neg-Trace AH Auto Urine SS Color (U) Yellow (07/12/22 2:00 AM) Invalid Interpretation Code AH Auto Urine SS Glucose Test strip (U) [Mass/Vol] Negative Invalid Interpretation Code Negativemg/d L AH Auto Urine SS Hemoglobin Auto test strip (U) [Mass/Vol] Negative (07/12/22 2:00 AM) Invalid Interpretation Code Neg-Trace AH Auto Urine SS Ketones Ql (U) Negative Invalid Interpretation Code Neg-Tracemg/ dL AH Auto Urine SS UA Leuk Est Moderate *ABN* (07/12/22 2:00 AM) Invalid Interpretation Code Negative AH Auto Urine SS UA Nitrite Positive *ABN* (07/12/22 2:00 AM) Invalid Interpretation Code Negative AH Auto Urine SS UA pH 6.5 (07/12/22 2:00 AM) Invalid Interpretation Code 5.0 - 8.0 AH Auto Urine SS UA Protein Negative Invalid Interpretation Code Negativemg/d L AH Auto Urine SS UA Spec Grav 1.020 (07/12/22 2:00 AM) Invalid Interpretation Code 1.006-1.029 AH Auto Urine SS UA Specimen Type Not Given (07/12/22 2:00 AM) Invalid Interpretation Code AH Auto Urine SS UA Urobilinogen 0.2 E.U./dL Invalid Interpretation Code 0.2-1.0E.U./ dL AH Auto Urine SS LABORATORYOrdered By: Coretta Dumont on 07-12-2022 Bacteria LM.HPF (Urine sed) [#/Area] 2 /[HPF] Invalid Interpretation Code Negative/HPF AH Auto Urine SS UA RBC Negative Invalid Interpretation Code 0-2/HPF AH Auto Urine SS UA Squam Epithelial Negative Invalid Interpretation Code 0-20/HPF AH Auto Urine SS WBC LM.HPF (Urine sed) [#/Area] 3-5 /HPF Invalid Interpretation Code 0-5/HPF AH Auto Urine SS LABORATORYOrdered By: Kristi sheffield on 07-12-2022 ER U Drug Screen Positive *ABN* (07/12/22 2:00 AM) Invalid Interpretation Code AH Chemistry S ER U Drug Screen Interp In the urine, the following drug(s) or drug class(es) were screened presumptive positive at or above the listed threshold: _1.Opiates Invalid Interpretation Code AH Chemistry S U ER Drugs Screened: See Below (07/12/22 2:00 AM) Invalid Interpretation Code AH Chemistry S LABORATORYOrdered By: Jeff Jaime on 07-12-2022 Calcium.ionized (Bld) [Mass/Vol] 1.13 mmol/L Invalid Interpretation Code 1.12 - 1.32 mmol/L AH Auto Chem SS LABORATORYOrdered By: Oliverio Huggins on 07-11-2022 aPTT Coag (PPP) [Time] 28.8 s Invalid Interpretation Code 25.0 - 35.0 seconds AH Auto Coag SS Fibrinogen Coag (PPP) [Mass/Vol] 593 mg/dL Invalid Interpretation Code 250 - 560 mg/dL AH Auto Coag SS Heparin dose (APTT) Unknown (07/11/22 4:25 PM) Invalid Interpretation Code AH Auto Coag SS INR Coag (PPP) [Relative time] 0.9 {INR} Invalid Interpretation Code AH Auto Coag SS Plt % Functional 86 1 Invalid Interpretation Code 80 - 97 % AH Hematology S Plt ADP 14 k/mm3 Invalid Interpretation Code AH Hematology S Plt Base 102 k/mm3 Invalid Interpretation Code Hematology S PT Coag (PPP) [Time] 11.2 s Invalid Interpretation Code 9.0 - 14.9 seconds AH Auto Coag SS LABORATORYOrdered By: Jeff Jaime on 07-11-2022 Acetaminophen [Mass/Vol] mcg/mL Invalid Interpretation Code 10.0 - 20.0 mcg/mL AH ADM SS ER Drug Screen (s) Negative (07/11/22 1:23 PM) Invalid Interpretation Code Chemistry S ER Drug Screen Interp Serum shows no yunior dence of drugs routinely screened Invalid Interpretation Code AH Chemistry S ER Serum Drugs Screened: See Below (07/11/22 1:23 PM) Invalid Interpretation Code AH Chemistry S Ethanol [Mass/Vol] mg/dL Invalid Interpretation Code AH ADM SS Salicylates [Mass/Vol] mg/dL Invalid Interpretation Code 10.0 - 25.0 mg/dL AH ADM SS Tricyclic antidepressants Screen Ql Negative Invalid Interpretation Code AH ADM SS LABORATORYOrdered By: SYSTEM SYSTEM on 07-11-2022 Monocyte distribution width Auto (Bld) [Entitic vol] 20.94 Invalid Interpretation Code 0.00 - 20.00 AH Workflow SS Comment on above: Result Comment: For adults in ED, MDW>20.0 may be associated with a higher risk of sepsis during the first 12hrs of hospital admission LABORATORYOrdered By: Harrison Brower on 12-04-2021 Glucose [Mass/Vol] 213 mg/dL Invalid Interpretation Code 82 - 115 mg/dL [facility] Work Phone: LABORATORYOrdered By: Triston Nicholson on 12-04-2021 Appearance (U) Clear (12/04/21 11:18 AM) Invalid Interpretation Code Clear AO Auto Urine SS Bilirubin Ql (U) Negative (12/04/21 11:18 AM) Invalid Interpretation Code Negative AO Auto Urine SS Color (U) Yellow (12/04/21 11:18 AM) Invalid Interpretation Code AO Auto Urine SS Glucose Test strip (U) [Mass/Vol] 500 mg/dL Invalid Interpretation Code Negativemg/d L AO Auto Urine SS Hemoglobin Auto test strip (U) [Mass/Vol] Negative (12/04/21 11:18 AM) Invalid Interpretation Code Negative AO Auto Urine SS Ketones Ql (U) Negative Invalid Interpretation Code Negativemg/d L AO Auto Urine SS UA Leuk Est Negative (12/04/21 11:18 AM) Invalid Interpretation Code Negative AO Auto Urine SS UA Nitrite Negative (12/04/21 11:18 AM) Invalid Interpretation Code Negative AO Auto Urine SS UA pH 7.0 (12/04/21 11:18 AM) Invalid Interpretation Code 5.0 - 8.0 AO Auto Urine SS UA Protein Negative Invalid Interpretation Code Negativemg/d L AO Auto Urine SS UA Spec Grav 1.025 (12/04/21 11:18 AM) Invalid Interpretation Code 1.015-1.025 AO Auto Urine SS UA Specimen Type Clean Catch (12/04/21 11:18 AM) Invalid Interpretation Code AO Auto Urine SS UA Urobilinogen 0.2 E.U./dL Invalid Interpretation Code 0.2-1.0E.U./ dL AO Auto Urine SS LABORATORYOrdered By: Nataly Francis on 12-04-2021 Albumin BCP dye [Mass/Vol] 3.0 G/dL Invalid Interpretation Code 3.4 - 4.8 G/dL AO ADM SS Albumin/Globulin [Mass ratio] 0.9 {ratio} Invalid Interpretation Code 1.1 - 2.5 ratio AO ADM SS ALP [Catalytic activity/Vol] 99 U/L Invalid Interpretation Code 40 - 135 U/L AO ADM SS ALT With P-5'-P [Catalytic activity/Vol] 71 U/L Invalid Interpretation Code 14 - 59 U/L AO ADM SS AST With P-5'-P [Catalytic activity/Vol] 46 U/L Invalid Interpretation Code 10 - 40 U/L AO ADM SS Basophil, Absolute 0.10 103/mcL Invalid Interpretation Code 0.00 - 0.19 10^3/mcL AO Auto Heme SS Basophils/100 WBC (Bld) 1.4 % Invalid Interpretation Code 0.0 - 2.5 % AO Auto Heme SS Bilirubin [Mass/Vol] 0.6 mg/dL Invalid Interpretation Code 0.2 - 1.0 mg/dL AO ADM SS Calcium [Mass/Vol] 8.8 mg/dL Invalid Interpretation Code 8.4 - 10.2 mg/dL AO ADM SS Chloride [Moles/Vol] 99 mmol/L Invalid Interpretation Code 98 - 107 mmol/L AO ADM SS CO2 [Moles/Vol] 39 mmol/L Invalid Interpretation Code 23 - 31 mmol/L AO ADM SS Creatinine [Mass/Vol] 0.88 mg/dL Invalid Interpretation Code 0.55 - 1.02 mg/dL AO ADM SS Electrolyte Balance 2.0 mEq/L Invalid Interpretation Code 4.0 - 15.0 mEq/L AO ADM SS Eosinophil, Absolute 0.10 103/mcL Invalid Interpretation Code 0.00 - 0.40 10^3/mcL AO Auto Heme SS Eosinophils/100 WBC (Bld) 0.9 % Invalid Interpretation Code 0.0 - 7.0 % AO Auto Heme SS Erythrocyte distribution width (RBC) [Ratio] 14.9 % Invalid Interpretation Code 11.5 - 14.5 % AO Auto Heme SS Globulin 3.3 G/dL Invalid Interpretation Code AO ADM SS Glucose [Mass/Vol] 530 mg/dL Invalid Interpretation Code 83 - 110 mg/dL AO ADM SS Hematocrit (Bld) [Volume fraction] 32.0 % Invalid Interpretation Code 37.0 - 47.0 % AO Auto Heme SS Hemoglobin (Bld) [Mass/Vol] 10.5 G/dL Invalid Interpretation Code 12.0 - 16.0 G/dL AO Auto Heme SS Ketones [Mass/Vol] Negative Invalid Interpretation Code Negativemg/d L AO Rapid Testing SS Lymphocyte, Absolute 0.70 103/mcL Invalid Interpretation Code 0.77 - 3.85 10^3/mcL AO Auto Heme SS Lymphocytes/100 WBC (Bld) 9.3 % Invalid Interpretation Code 10.0 - 50.0 % AO Auto Heme SS MCH (RBC) [Entitic mass] 29.4 pg Invalid Interpretation Code 27.0 - 31.2 pg AO Auto Heme SS MCHC (RBC) [Mass/Vol] 33.0 G/dL Invalid Interpretation Code 33.0 - 37.0 G/dL AO Auto Heme SS MCV (RBC) [Entitic vol] 89.2 fL Invalid Interpretation Code 80.0 - 94.0 fL AO Auto Heme SS Monocyte, Absolute 0.40 103/mcL Invalid Interpretation Code 0.15 - 1.00 10^3/mcL AO Auto Heme SS Monocytes/100 WBC (Bld) 5.6 % Invalid Interpretation Code 1.7 - 13.0 % AO Auto Heme SS Neutrophil, Absolute 5.90 103/mcL Invalid Interpretation Code 2.85 - 6.16 10^3/mcL AO Auto Heme SS Neutrophils/100 WBC (Bld) 82.8 % Invalid Interpretation Code 37.0 - 80.0 % AO Auto Heme SS pH (BldV) 7.43 [pH] Invalid Interpretation Code 7.31 - 7.41 AO Blood Gas SS Platelet Estimate Normal (12/04/21 8:33 AM) Invalid Interpretation Code AO Auto Heme SS Platelet mean volume (Bld) [Entitic vol] 6.8 fL Invalid Interpretation Code 7.4 - 10.4 fL AO Auto Heme SS Platelets (Bld) [#/Vol] 156 103/mcL Invalid Interpretation Code 130 - 400 10^3/mcL AO Auto Heme SS Potassium [Moles/Vol] 3.4 mmol/L Invalid Interpretation Code 3.5 - 5.1 mmol/L AO ADM SS Protein [Mass/Vol] 6.3 G/dL Invalid Interpretation Code 6.4 - 8.2 G/dL AO ADM SS RBC (Bld) [#/Vol] 3.58 106/mcL Invalid Interpretation Code 4.20 - 5.40 10^6/mcL AO Auto Heme SS Sodium [Moles/Vol] 140 mmol/L Invalid Interpretation Code 136 - 145 mmol/L AO ADM SS Urea nitrogen [Mass/Vol] 23 mg/dL Invalid Interpretation Code 7 - 18 mg/dL AO ADM SS Urea nitrogen/Creatinine [Mass ratio] 26 ratio Invalid Interpretation Code 7 - 27 ratio AO ADM SS WBC (Bld) [#/Vol] 7.20 103/mcL Invalid Interpretation Code 4.60 - 10.80 10^3/mcL AO Auto Heme SS LABORATORYOrdered By: SYSTEM SYSTEM on 12-04-2021 GFR 77 ml/min/1.73sqm Invalid Interpretation Code AO Chemistry S GFR Non- 63 ml/min/1.73sqm Invalid Interpretation Code AO Chemistry S CNCOon 11-30-2021 CNCO Letter Text Normal [facility] LABORATORYOrdered By: Dori Frances on 09-15-2021 Calcium [Mass/Vol] 8.7 mg/dL Invalid Interpretation Code 8.4 - 10.2 mg/dL AO ADM SS Chloride [Moles/Vol] 106 mmol/L Invalid Interpretation Code 98 - 107 mmol/L AO ADM SS CO2 [Moles/Vol] 39 mmol/L Invalid Interpretation Code 23 - 31 mmol/L AO ADM SS Creatinine [Mass/Vol] 0.84 mg/dL Invalid Interpretation Code 0.55 - 1.02 mg/dL AO ADM SS Electrolyte Balance 3.0 mEq/L Invalid Interpretation Code AO ADM SS Glucose [Mass/Vol] 236 mg/dL Invalid Interpretation Code 83 - 110 mg/dL AO ADM SS Potassium [Moles/Vol] 4.0 mmol/L Invalid Interpretation Code 3.5 - 5.1 mmol/L AO ADM SS Sodium [Moles/Vol] 148 mmol/L Invalid Interpretation Code 136 - 145 mmol/L AO ADM SS Urea nitrogen [Mass/Vol] 18 mg/dL Invalid Interpretation Code 7 - 18 mg/dL AO ADM SS Urea nitrogen/Creatinine [Mass ratio] 21 ratio Invalid Interpretation Code 7 - 27 ratio AO ADM SS Base excess Calc (Bld) [Moles/Vol] 19.0 mmol/L Invalid Interpretation Code -2.4 - 2.3 mmol/L AO Blood Gas SS CO2 (Bld) [Partial pressure] 69.6 mm[Hg] Invalid Interpretation Code 35.0 - 45.0 mm Hg AO Blood Gas SS CO2 [Moles/Vol] 46 mmol/L Invalid Interpretation Code 19 - 24 mmol/L AO Blood Gas SS HCO3 (Bld) [Moles/Vol] 43.6 mmol/L Invalid Interpretation Code 22.0 - 26.0 mmol/L AO Blood Gas SS Oxygen (Bld) [Partial pressure] 137.0 mm[Hg] Invalid Interpretation Code 80.0 - 100.0 mm Hg AO Blood Gas SS pH (Bld) 7.41 [pH] Invalid Interpretation Code 7.35 - 7.45 AO Blood Gas SS HbA1c (Bld) [Mass fraction] 7.4 % Invalid Interpretation Code 4.3 - 6.4 % AO ADM SS LABORATORYOrdered By: SYSTEM SYSTEM on 09-15-2021 GFR 81 ml/min/1.73sqm Invalid Interpretation Code AO Chemistry S GFR Non- 67 ml/min/1.73sqm Invalid Interpretation Code AO Chemistry S GFR 102 ml/min/1.73sqm Invalid Interpretation Code AO Chemistry S GFR Non- 84 ml/min/1.73sqm Invalid Interpretation Code AO Chemistry S LABORATORYOrdered By: Triston Nicholson on 09-15-2021 Albumin BCP dye [Mass/Vol] 3.7 G/dL Invalid Interpretation Code 3.4 - 4.8 G/dL AO ADM SS Albumin/Globulin [Mass ratio] 1.1 {ratio} Invalid Interpretation Code 1.1 - 2.5 ratio AO ADM SS ALP [Catalytic activity/Vol] 75 U/L Invalid Interpretation Code 40 - 135 U/L AO ADM SS ALT With P-5'-P [Catalytic activity/Vol] 34 U/L Invalid Interpretation Code 14 - 59 U/L AO ADM SS AST With P-5'-P [Catalytic activity/Vol] 24 U/L Invalid Interpretation Code 10 - 40 U/L AO ADM SS Bilirubin [Mass/Vol] 0.9 mg/dL Invalid Interpretation Code 0.2 - 1.0 mg/dL AO ADM SS Calcium [Mass/Vol] 9.0 mg/dL Invalid Interpretation Code 8.4 - 10.2 mg/dL AO ADM SS Chloride [Moles/Vol] 104 mmol/L Invalid Interpretation Code 98 - 107 mmol/L AO ADM SS Cholesterol [Mass/Vol] 165 mg/dL Invalid Interpretation Code 0 - 200 mg/dL AO ADM SS Cholesterol in HDL [Mass/Vol] 49 mg/dL Invalid Interpretation Code 40 - 60 mg/dL AO ADM SS Cholesterol in LDL [Mass/Vol] 75 mg/dL Invalid Interpretation Code 0 - 130 mg/dL AO ADM SS CO2 [Moles/Vol] 41 mmol/L Invalid Interpretation Code 23 - 31 mmol/L AO ADM SS Creatinine [Mass/Vol] 0.69 mg/dL Invalid Interpretation Code 0.55 - 1.02 mg/dL AO ADM SS Electrolyte Balance 2.0 mEq/L Invalid Interpretation Code AO ADM SS Globulin 3.4 G/dL Invalid Interpretation Code AO ADM SS Glucose [Mass/Vol] 184 mg/dL Invalid Interpretation Code 83 - 110 mg/dL AO ADM SS Iron [Mass/Vol] 56 ug/dL Invalid Interpretation Code 50 - 170 mcg/dL AO ADM SS Iron binding capacity [Mass/Vol] 233 mcg/dL Invalid Interpretation Code 250 - 450 mcg/dL AO ADM SS Potassium [Moles/Vol] 4.2 mmol/L Invalid Interpretation Code 3.5 - 5.1 mmol/L AO ADM SS Protein [Mass/Vol] 7.1 G/dL Invalid Interpretation Code 6.4 - 8.2 G/dL AO ADM SS Sodium [Moles/Vol] 147 mmol/L Invalid Interpretation Code 136 - 145 mmol/L AO ADM SS Triglyceride [Mass/Vol] 206 mg/dL Invalid Interpretation Code 0 - 150 mg/dL AO ADM SS Urea nitrogen [Mass/Vol] 13 mg/dL Invalid Interpretation Code 7 - 18 mg/dL AO ADM SS Urea nitrogen/Creatinine [Mass ratio] 19 ratio Invalid Interpretation Code 7 - 27 ratio AO ADM SS LABORATORYOrdered By: Jennifer Villagomez on 09-15-2021 Basophil, Absolute 0.00 103/mcL Invalid Interpretation Code 0.00 - 0.19 10^3/mcL AO Auto Heme SS Basophils/100 WBC (Bld) 0.2 % Invalid Interpretation Code 0.0 - 2.5 % AO Auto Heme SS Eosinophil, Absolute 0.10 103/mcL Invalid Interpretation Code 0.00 - 0.40 10^3/mcL AO Auto Heme SS Eosinophils/100 WBC (Bld) 1.8 % Invalid Interpretation Code 0.0 - 7.0 % AO Auto Heme SS Erythrocyte distribution width (RBC) [Ratio] 13.4 % Invalid Interpretation Code 11.5 - 14.5 % AO Auto Heme SS Hematocrit (Bld) [Volume fraction] 32.0 % Invalid Interpretation Code 37.0 - 47.0 % AO Auto Heme SS Hemoglobin (Bld) [Mass/Vol] 10.7 G/dL Invalid Interpretation Code 12.0 - 16.0 G/dL AO Auto Heme SS Lymphocyte, Absolute 0.70 103/mcL Invalid Interpretation Code 0.77 - 3.85 10^3/mcL AO Auto Heme SS Lymphocytes/100 WBC (Bld) 13.9 % Invalid Interpretation Code 10.0 - 50.0 % AO Auto Heme SS MCH (RBC) [Entitic mass] 31.3 pg Invalid Interpretation Code 27.0 - 31.2 pg AO Auto Heme SS MCHC (RBC) [Mass/Vol] 33.5 G/dL Invalid Interpretation Code 33.0 - 37.0 G/dL AO Auto Heme SS MCV (RBC) [Entitic vol] 93.5 fL Invalid Interpretation Code 80.0 - 94.0 fL AO Auto Heme SS Monocyte, Absolute 0.30 103/mcL Invalid Interpretation Code 0.15 - 1.00 10^3/mcL AO Auto Heme SS Monocytes/100 WBC (Bld) 5.4 % Invalid Interpretation Code 1.7 - 13.0 % AO Auto Heme SS Neutrophil, Absolute 4.00 103/mcL Invalid Interpretation Code 2.85 - 6.16 10^3/mcL AO Auto Heme SS Neutrophils/100 WBC (Bld) 78.7 % Invalid Interpretation Code 37.0 - 80.0 % AO Auto Heme SS Platelet mean volume (Bld) [Entitic vol] 7.2 fL Invalid Interpretation Code 7.4 - 10.4 fL AO Auto Heme SS Platelets (Bld) [#/Vol] 124 103/mcL Invalid Interpretation Code 130 - 400 10^3/mcL AO Auto Heme SS RBC (Bld) [#/Vol] 3.42 106/mcL Invalid Interpretation Code 4.20 - 5.40 10^6/mcL AO Auto Heme SS WBC (Bld) [#/Vol] 5.00 103/mcL Invalid Interpretation Code 4.60 - 10.80 10^3/mcL AO Auto Heme SS Initial Visit (Gastroenterol og)on 07-14-2020 Initial Visit (Gastroenterology) Diagnoses/Problems Assessed Right sided abdominal pain (789.09) (R10.9) Intermittent diarrhea (787.91) (R19.7) Chronic GERD (530.81) (K21.9) Hepatic steatosis (571.8) (K76.0) Orders SocHx: Former smoker Tobacco Use Screening; Status:Complete; Done: [id number] Perform:Not Applicable;Ordered; For:SocHx: Former smoker; Ordered By:Jenniffer Ho; Patient Discussion/Summary 1. Outside records were reviewed. Will obtain MRI report from this past December. 2. Ultrasound likely demonstrating nonalcoholic fatty liver disease. No liver nodularity noted on prior CT. Encouraged weight loss, reduction of blood triglycerides, and strict glucose control. Recommend routine hepatic function panels. 3. Increase dicyclomine ever 6 hours as needed for bowel spasm. 4. Begin using one heaping tablespoon of Benefiber in 8 ounces of water daily by mixing and drinking quickly. This product is [id number]. Additionally take MiraLAX as needed for constipation. 5. Continue omeprazole 20 mg daily. 6. Contact office in 3-4 weeks with status update. Chief Complaint A telephone visit (audio only) between the patient (at the originating site) and the provider (at the distant site) was utilized to provide this telehealth service. Verbal consent was requested and obtained from POLI RAMIREZ on this date, 07/14/2020 12:00 PM , for a telehealth visit. Abnormal ultrasound of the liver History of Present [id number] female spoken to over telephone referred for elevated liver enzymes. CMP last month was actually normal. Total cholesterol was 142 and triglycerides were elevated at 274. Patient states she was experiencing some right-sided abdominal pain which led to an abdominal ultrasound 06/19/20. This demonstrated a pancreatic cyst as well as hepatic steatosis. No focal liver lesion was evident on CT abdomen and pelvis with contrast this November. Patient denies a personal or family history of liver disease. BMI is noted at 36. She denies alcohol use, Tylenol or herbal supplementation. She has no jaundice, dark urine, or pruritus. She reports a good appetite without weight loss. She continues to have intermittent pain in the right lower abdomen occasionally radiating towards her back. This has occurred once every few days for the last few months described as aching and occasionally sharp. Most recent episode was 2 weeks ago. There are no triggering factors including eating or bowel function. Bentyl seemed to alleviate this but she only takes this as needed for diarrhea. She has no abdominal bloating or distention. GERD is well controlled with omeprazole 20 mg. She reports a normal EGD and colonoscopy in 2013. Review of Systems Const: Denies fatigue, fever and weight loss. CV: Denies chest pain, pacemaker, palpitations and valvular heart disease. Resp: Reports COPD?oxygen. Nocturnal Denies cough, sleep apnea, SOB and snoring. GI: Denies symptoms other than stated above. Musculo: Denies joint pain and muscle pain. Skin: Denies hives and rash. Neuro: Denies seizures and stroke. Psych: Denies anxiety and depression. Endocrine: Reports well-controlled diabetes. Denies intolerance to cold, hot flashes. Dionte/Lymph: Reports radiation left breast 2013. Denies anemia, blood transfusions, chemotherapy, enlarged lymph nodes Active Problems Problems Chronic GERD (530.81) (K21.9) Hepatic steatosis (571.8) (K76.0) Intermittent diarrhea (787.91) (R19.7) Right sided abdominal pain (789.09) (R10.9) Spleen enlargement (789.2) (R16.1) Past Medical History Problems History of chronic obstructive lung disease (V12.69) (Z87.09) Denied: History of complications due to general anesthesia History of diabetes mellitus (V12.29) (Z86.39) History of gastroesophageal reflux (GERD) (V12.79) (Z87.19) History of hiatal hernia (V12.79) (Z87.19) History of hypertension (V12.59) (Z86.79) History of radiation therapy (V15.3) (Z92.3) 2012- LEFT BREAST Personal history of coronary atherosclerosis (V12.59) (Z86.79) Personal history of malignant neoplasm of breast (V10.3) (Z85.3) 2012- left Personal history of rheumatoid arthritis (V13.4) (Z87.39) Surgical History Problems History of Appendectomy History of Cardiac catheterization NORMAL - APPROX. 2009 History of Cataract Surgery History of Cholecystectomy History of Colonoscopy . 2013- DONE IN [place]- NORMAL History of Esophagogastroduodenoscop y APPROX- 2013- IN [place]- NORMAL History of Knee arthroscopy History of Lumpectomy LEFT- 2012- CAN[facility] History of Tubal ligation Family History Sister Family history of malignant neoplasm of breast (V16.3) (Z80.3) Other Denied: Family history of malignant neoplasm of colon Social History Problems Active advance directive (V49.89) (Z78.9) Daily caffeine consumption 2-3 CUPS COFFEE DAILY Diet is normal for age Former consumption of alcohol (V11.3) (Z87.898) QUIT IN 1999 - WAS A SOCIAL DRINKER Former smoker (V15.82) (Z87.891) QUIT IN 1999- SMOKED A PACK A WEEK Denied: History of body piercing Denied: History of tattoo No illicit drug use Allergies Medication No Known Drug Allergies Recorded By: Mary Barr; 07/14/2020 7:45:22 AM NonMedication No Known Food Allergies Recorded By: Jenniffer Ho; 07/14/2020 11:48:14 AM Current Meds Medication NameInstruction Flovent Diskus 100 MCG/BLIST Inhalation Aerosol Powder Breath Activated Glimepiride 1 MG Oral Tablet Losartan Potassium 50 MG Oral Tablet Meloxicam 7.5 MG Oral Tablet Metoprolol Succinate ER 50 MG Oral Tablet Extended Release 24 Hour Nitroglycerin SUBLas needed Omeprazole 20 MG Oral Capsule Delayed ReleaseOnce daily Oxybutynin Chloride 5 MG Oral Tablet Prochlorperazine Maleate 5 MG Oral Tablet Simvastatin 10 MG Oral Tablet Physical Exam Patient is alert and oriented throughout telephone call without conversational dyspnea or cough. Results/Data 1. CT abdomen and pelvis with contrast 12/05/19: Small left pleural effusion, prominent rounded lesion at the upper aspect of the spleen, left adrenal myelolipoma, multiple cystic pancreatic lesions. Did undergo follow-up pancreas MRI 01/03/20 although report is not available. 2. Abdominal ultrasound 04/04/20: Stable isoechoic mass in the spleen measuring up to 9.3 cm. 3. Lab studies 06/04/20: Sodium 150, potassium 4.5, glucose 142, BUN 19, creatinine 0.88. Total bilirubin 0.5, alkaline phosphatase 87, ALT 26, AST 19. Total cholesterol 142 and triglycerides 274. 4. Abdominal ultrasound 06/19/20: 1.70 cm pancreatic cyst. Hepatomegaly. Hepatic steatosis versus hepatocellular disease. Time Time Spent With Patient: 12 minutes of which greater than 50 percent was spent counseling and or coordinating care. Signatures Electronically signed by : Kandi Sharma PA-C; Jul 14 2020 12:31PM EST (Author) Normal Touchworks Culture, urine Bacteria identified Cx Nom (U) Presumptive E. coli [facility] Work Phone: Bacteria identified Cx Nom (U) Positive [facility] Work Phone: Vital Signs Date Time Vital Sign Value Performing Clinician Facility 10-31-2023 11:16-0500 Body height 165.1 cm [facility] [employer] Work Phone: [facility] 10-31-2023 11:16-0500 Body mass index (BMI) [Ratio] 26.79 kg/m2 [facility]-TRAFFIC OR SYSTEM DISPATCHER Work Phone: [facility] 10-31-2023 11:16-0500 Body weight 73.03 kg Elida Blume MACHINE MAINTENANCE REPAIRER-TRA[employer] SYSTEM DISPATCHER Work Phone: [facility] 10-31-2023 11:16-0500 Diastolic blood pressure 61 mm[Hg] Elida Blume MACHINE MAINTENANCE REPAIRER-TRAFFIC OR SYSTEM DISPATCHER Work Phone: [facility] 10-31-2023 11:16-0500 Heart rate 84 /min Elida Blume MACHINE MAINTENANCE REPAIRER-TRAFFIC OR SYSTEM DISPATCHER Work Phone: [facility] 10-31-2023 11:16-0500 SaO2% (BldA) [Mass fraction] 97 % Elida Blume MACHINE MAINTENANCE REPAIRER-TRAFFIC OR SYSTEM DISPATCHER Work Phone: [facility] 10-31-2023 11:16-0500 Systolic blood pressure 94 mm[Hg] Elida Blume MACHINE MAINTENANCE REPAIRER-TRAFFIC OR SYSTEM DISPATCHER Work Phone: [facility] 10-17-2023 11:20-0500 Body height 165.1 cm Varsha Sotelo MD Work Phone: [facility] 10-17-2023 11:20-0500 Body mass index (BMI) [Ratio] 26.88 kg/m2 Varsha Sotelo MD Work Phone: [facility] 10-17-2023 11:20-0500 Body temperature 97.7 [degF] Varsha Sotelo MD Work Phone: [facility] 10-17-2023 11:20-0500 Body weight 73.26 kg Varsha Sotelo MD Work Phone: [facility] 10-17-2023 11:20-0500 Diastolic blood pressure 54 mm[Hg] Varsha Sotelo MD Work Phone: [facility] 10-17-2023 11:20-0500 Heart rate 74 /min Varsha Sotelo MD Work Phone: [facility] 10-17-2023 11:20-0500 Systolic blood pressure 94 mm[Hg] Varsha Sotelo MD Work Phone: [facility] 09-28-2023 09:24-0500 Body temperature 97.9 [degF] Velvet Donatelli-Seyler DO Work Phone: [facility] 09-28-2023 09:24-0500 Diastolic blood pressure 70 mm[Hg] Velvet Donatelli-Seyler DO Work Phone: [facility] 09-28-2023 09:24-0500 Heart rate 91 /min Velvet Donatelli-Seyler DO Work Phone: [facility] 09-28-2023 09:24-0500 Respiratory rate 16 /min Velvet Donatelli-Seyler DO Work Phone: [facility] 09-28-2023 09:24-0500 SaO2% (BldA) [Mass fraction] 99 % Velvet Donatelli-Seyler DO Work Phone: [facility] 09-28-2023 09:24-0500 Systolic blood pressure 111 mm[Hg] Velvet Donatelli-Seyler DO Work Phone: [facility] 09-19-2023 16:37-0500 Body temperature 37.0 Velvet Donatelli-Seyler DO Work Phone: [facility] 09-19-2023 16:37-0500 SaO2% (BldA) [Mass fraction] 99 % Velvet Donatelli-Seyler DO Work Phone: [facility] 09-19-2023 14:04-0500 Body temperature 37.0 [address] [facility] Comment on above: Order Comment: While on baseline/ home l evel of oxygen Result Comment: NOTE : Patient Results are Not Corrected for Temperature Performed By: #### 6 00-7 #### BEVERLEY Poe ([id number]) [facility] ([facility]) [address] [place] [address] 09-19-2023 14:04-0500 SaO2% (BldA) [Mass fraction] 99 % [facility] Comment on above: Order Comment: While on baseline/ home l evel of oxygen Performed By: #### 6 00-7 #### BEVERLEY Poe ([id number]) [facility] ([facility]) [id number] [place] [address] 09-15-2023 18:44-0400 Body height 165.1 cm Velvet Jerez DO Work Phone: [facility] 09-15-2023 18:44-0400 Body mass index (BMI) [Ratio] 27.46 kg/m2 Velvet Jerez DO Work Phone: [facility] 09-15-2023 18:44-0400 Body weight 74.84 kg Velvet Jerez DO Work Phone: [facility] 09-15-2023 16:54-0400 Diastolic blood pressure 60 mm[Hg] Dr. Jonathan Dillard SrChe Work Phone: [facility] 09-15-2023 16:54-0400 Heart rate 88 /min Dr. Jonathan Dillard Sr. Work Phone: [facility] 09-15-2023 16:54-0400 Inhaled oxygen flow rate 3 L/min Dr. Jonathan Dillard Sr. Work Phone: [facility] 09-15-2023 16:54-0400 Respiratory rate 18 /min Dr. Jonathan Dillard Sr. Work Phone: [facility] 09-15-2023 16:54-0400 SaO2% (BldA) [Mass fraction] 100 % Dr. Jonathan Dillard Sr. Work Phone: [facility] 09-15-2023 16:54-0400 Systolic blood pressure 115 mm[Hg] Dr. Jonathan Dillard Sr. Work Phone: [facility] 09-15-2023 16:30-0400 Body temperature 97.8 [degF] Dr. Jonathan Dillard Sr. Work Phone: [facility] 09-14-2023 22:45-0400 Body height 165.[address] Jonathan Dillard Sr. Work Phone: [facility] 09-14-2023 22:45-0400 Body mass index (BMI) [Ratio] 29 kg/m2 Dr. Jonathan Dillard Sr. Work Phone: [facility] 09-14-2023 22:45-0400 Body weight 79.[address] Jonathan Dillard Sr. Work Phone: [facility] 09-08-2023 10:18-0400 Body mass index (BMI) [Ratio] 27.6 kg/m2 Dr. Jonathan Dillard Sr. Work Phone: [facility] 09-08-2023 10:18-0400 Body temperature 97.7 [degF] Dr. Jonathna Dillard Sr. Work Phone: [facility] 09-08-2023 10:18-0400 Body weight 75.[address] Jonathan Dillard Sr. Work Phone: [facility] 09-08-2023 10:18-0400 Diastolic blood pressure 55 mm[Hg] Dr. Jonathan Dillard Sr. Work Phone: [facility] 09-08-2023 10:18-0400 Heart rate 97 /min Dr. Jonathan Dillard Sr. Work Phone: [facility] 09-08-2023 10:18-0400 Inhaled oxygen flow rate 1 L/min Dr. Jonathan Dillard Sr. Work Phone: [facility] 09-08-2023 10:18-0400 Respiratory rate 18 /min Dr. Jonathan Dillard Sr. Work Phone: [facility] 09-08-2023 10:18-0400 SaO2% (BldA) [Mass fraction] 95 % Dr. Jonathan Dillard Sr. Work Phone: [facility] 09-08-2023 10:18-0400 Systolic blood pressure 99 mm[Hg] Dr. Jonathan Dillard Sr. Work Phone: [facility] 08-15-2023 11:54-0400 Diastolic Blood Pressure Non-Invasive [address] MARK JEREZ MD [facility] 08-15-2023 11:54-0400 Heart rate 91 /min DR MARK JEREZ MD [facility] 08-15-2023 11:54-0400 Respiratory rate 23 /min DR MARK JEREZ MD [facility] 08-15-2023 11:54-0400 Systolic Blood Pressure Non-Invasive [address] MARK JEREZ MD [facility] 08-15-2023 11:41-0400 Diastolic Blood Pressure Non-Invasive [address] MARK JEREZ MD [facility] 08-15-2023 11:41-0400 Heart rate 98 /min DR MARK JEREZ MD [facility] 08-15-2023 11:41-0400 Respiratory rate 19 /min DR MARK JEREZ MD [facility] 08-15-2023 11:41-0400 Systolic Blood Pressure Non-Invasive [address] MARK JEREZ MD [facility] 08-15-2023 11:25-0400 Body temperature 97.52 [degF] DR MARK JEREZ MD [facility] 08-15-2023 11:25-0400 Diastolic Blood Pressure Non-Invasive [address] MARK JEREZ MD [facility] 08-15-2023 11:25-0400 Heart rate 97 /min DR MARK JEREZ MD [facility] 08-15-2023 11:25-0400 Respiratory rate 24 /min DR MARK JEREZ MD [facility] 08-15-2023 11:25-0400 Systolic Blood Pressure Non-Invasive [address] MARK JEREZ MD [facility] 08-15-2023 11:15-0400 Respiratory Rate - Anes 25 br/min DR MARK JEREZ MD [facility] 08-15-2023 11:10-0400 Respiratory Rate - Anes 26 br/min DR MARK JEREZ MD [facility] 08-15-2023 11:05-0400 Respiratory Rate - Anes 9 br/min DR MARK JEREZ MD [facility] 08-15-2023 10:29-0400 Body height [address] MARK JEREZ MD [facility] 08-15-2023 10:290400 Body weight [address] MARK JEREZ MD [facility] 08-15-2023 10:29-0400 Body weight 34.89 kg/m2 DR MARK JEREZ MD [facility] 08-15-2023 10:19-0400 Body height [address] MARK JEREZ MD [facility] 08-15-2023 10:19-0400 Body temperature 98.06 [degF] DR MARK JEREZ MD [facility] 08-15-2023 10:19-0400 Body weight [address] MARK JEREZ MD [facility] 08-15-2023 10:19-0400 Heart rate 87 /min DR MARK JEREZ MD [facility] 08-10-2023 03:47-0400 Diastolic blood pressure 62 mm[Hg] Jonathan [facility] 08-10-2023 03:47-0400 Heart rate 89 /min Jnoathan [facility] 08-10-2023 03:47-0400 Respiratory rate 18 /min Jonathan [facility] 08-10-2023 03:47-0400 SaO2% (BldA) [Mass fraction] 95 % [facility] 08-10-2023 03:47-0400 Systolic blood pressure 108 mm[Hg] Jonathan [facility] 08-09-2023 22:56-0400 Body height 165.1 cm Jonathan [facility] 08-09-2023 22:56-0400 Body mass index (BMI) [Ratio] 29.3 kg/m2 Jonahtan [facility] 08-09-2023 22:56-0400 Body temperature 98.9 [degF] Jonathan [facility] 08-09-2023 22:56-0400 Body weight 80.1 kg Jonathan [facility] 08-09-2023 22:56-0400 Inhaled oxygen flow rate 2 L/min Jonathan [facility] 07-14-2023 19:07-0400 Diastolic blood pressure 43 mm[Hg] ARLENE Carlisle NP Work Phone: [facility] 07-14-2023 19:07-0400 Heart rate 92 /min FARM MACHINERY ENGINE MECHANIC-C Barber Carlisle FARM MACHINERY ENGINE MECHANIC Work Phone: [facility] 07-14-2023 19:07-0400 Respiratory rate 17 /min FARM MACHINERY ENGINE MECHANIC-C Barber Carlisle FARM MACHINERY ENGINE MECHANIC Work Phone: [facility] 07-14-2023 19:07-0400 SaO2% (BldA) [Mass fraction] 98 % FARM MACHINERY ENGINE MECHANIC-C Barber Carlisle FARM MACHINERY ENGINE MECHANIC Work Phone: [facility] 07-14-2023 19:07-0400 Systolic blood pressure 104 mm[Hg] FARM MACHINERY ENGINE MECHANIC-C Barber Carlisle FARM MACHINERY ENGINE MECHANIC Work Phone: [facility] 07-14-2023 17:25-0400 Inhaled oxygen flow rate 1.5 L/min FARM MACHINERY ENGINE MECHANIC-C Barber Carlisle FARM MACHINERY ENGINE MECHANIC Work Phone: [facility] 07-14-2023 15:23-0400 Body mass index (BMI) [Ratio] 29.3 kg/m2 FARM MACHINERY ENGINE MECHANIC-C Barber Carlisle FARM MACHINERY ENGINE MECHANIC Work Phone: [facility] 07-14-2023 15:23-0400 Body weight 80 kg FARM MACHINERY ENGINE MECHANIC-C Barber Carlisle FARM MACHINERY ENGINE MECHANIC Work Phone: [facility] 07-14-2023 15:15-0400 Body height 165.1 cm FARM MACHINERY ENGINE MECHANIC-C Barber Carlisle FARM MACHINERY ENGINE MECHANIC Work Phone: [facility] 07-14-2023 15:15-0400 Body temperature 97.4 [degF] FARM MACHINERY ENGINE MECHANIC-C Barber Carlisle FARM MACHINERY ENGINE MECHANIC Work Phone: [facility] 05-04-2023 14:31-0400 Body height 165.1 cm FARM MACHINERY ENGINE MECHANIC-C Barber Carlisle FARM MACHINERY ENGINE MECHANIC Work Phone: [facility] 05-04-2023 14:31-0400 Body mass index (BMI) [Ratio] 30.1 kg/m2 FARM MACHINERY ENGINE MECHANIC-C Barber Carlisle FARM MACHINERY ENGINE MECHANIC Work Phone: [facility] 05-04-2023 14:31-0400 Body temperature 98.4 [degF] FARM MACHINERY ENGINE MECHANIC-C Barber Carlisle FARM MACHINERY ENGINE MECHANIC Work Phone: [facility] 05-04-2023 14:31-0400 Body weight 82.1 kg FARM MACHINERY ENGINE MECHANIC-C Barber Carlisle FARM MACHINERY ENGINE MECHANIC Work Phone: [facility] 05-04-2023 14:31-0400 Diastolic blood pressure 63 mm[Hg] FARM MACHINERY ENGINE MECHANIC-C Barber Carlisle FARM MACHINERY ENGINE MECHANIC Work Phone: [facility] 05-04-2023 14:31-0400 Heart rate 78 /min FARM MACHINERY ENGINE MECHANIC-C Barber Carlisle FARM MACHINERY ENGINE MECHANIC Work Phone: [facility] 05-04-2023 14:31-0400 Inhaled oxygen flow rate 1 L/min FARM MACHINERY ENGINE MECHANIC-C Barber Carlisle FARM MACHINERY ENGINE MECHANIC Work Phone: [facility] 05-04-2023 14:31-0400 Respiratory rate 15 /min FARM MACHINERY ENGINE MECHANIC-C Barber Carlisle FARM MACHINERY ENGINE MECHANIC Work Phone: [facility] 05-04-2023 14:31-0400 SaO2% (BldA) [Mass fraction] 96 % FARM MACHINERY ENGINE MECHANIC-C Barber Carlisle FARM MACHINERY ENGINE MECHANIC Work Phone: [facility] 05-04-2023 14:31-0400 Systolic blood pressure 103 mm[Hg] FARM MACHINERY ENGINE MECHANIC-C Barber Carlisle FARM MACHINERY ENGINE MECHANIC Work Phone: [facility] 04-19-2023 22:11-0400 Diastolic blood pressure 67 mm[Hg] FARM MACHINERY ENGINE MECHANIC-C Barber Carlisle FARM MACHINERY ENGINE MECHANIC Work Phone: [facility] 04-19-2023 22:11-0400 Respiratory rate 17 /min FARM MACHINERY ENGINE MECHANIC-C Barber Carlisle FARM MACHINERY ENGINE MECHANIC Work Phone: [facility] 04-19-2023 22:11-0400 SaO2% (BldA) [Mass fraction] 100 % FARM MACHINERY ENGINE MECHANIC-C Barber Carlisle FARM MACHINERY ENGINE MECHANIC Work Phone: [facility] 04-19-2023 22:11-0400 Systolic blood pressure 121 mm[Hg] FARM MACHINERY ENGINE MECHANIC-C Barber Carlisle FARM MACHINERY ENGINE MECHANIC Work Phone: [facility] 04-19-2023 20:00-0400 Body temperature 97.5 [degF] FARM MACHINERY ENGINE MECHANIC-C Barber Carlisle FARM MACHINERY ENGINE MECHANIC Work Phone: [facility] 04-19-2023 20:00-0400 Heart rate 88 /min FARM MACHINERY ENGINE MECHANIC-C Barber Carlisle FARM MACHINERY ENGINE MECHANIC Work Phone: [facility] 04-19-2023 20:00-0400 Inhaled oxygen flow rate 2 L/min FARM MACHINERY ENGINE MECHANIC-C Barber Carlisle FARM MACHINERY ENGINE MECHANIC Work Phone: [facility] 04-19-2023 16:41-0400 Body height 165.1 cm FARM MACHINERY ENGINE MECHANIC-C Barber Carlisle FARM MACHINERY ENGINE MECHANIC Work Phone: [facility] 04-19-2023 16:41-0400 Body mass index (BMI) [Ratio] 31.8 kg/m2 FARM MACHINERY ENGINE MECHANIC-C Barber Carlisle FARM MACHINERY ENGINE MECHANIC Work Phone: [facility] 04-19-2023 16:41-0400 Body weight 86.9 kg FARM MACHINERY ENGINE MECHANIC-C Barber Carlisle FARM MACHINERY ENGINE MECHANIC Work Phone: [facility] 04-04-2023 14:11-0400 Body temperature 97.4 [degF] FARM MACHINERY ENGINE MECHANIC-C Barber Carlisle FARM MACHINERY ENGINE MECHANIC Work Phone: [facility] 04-04-2023 14:11-0400 Diastolic blood pressure 66 mm[Hg] FARM MACHINERY ENGINE MECHANIC-C Barber Carlisle FARM MACHINERY ENGINE MECHANIC Work Phone: [facility] 04-04-2023 14:11-0400 Heart rate 76 /min FARM MACHINERY ENGINE MECHANIC-C Barber Carlisle FARM MACHINERY ENGINE MECHANIC Work Phone: [facility] 04-04-2023 14:11-0400 Respiratory rate 18 /min FARM MACHINERY ENGINE MECHANIC-C Barber Carlisle FARM MACHINERY ENGINE MECHANIC Work Phone: [facility] 04-04-2023 14:11-0400 SaO2% (BldA) [Mass fraction] 97 % FARM MACHINERY ENGINE MECHANIC-C Barber Carlisle FARM MACHINERY ENGINE MECHANIC Work Phone: [facility] 04-04-2023 14:11-0400 Systolic blood pressure 124 mm[Hg] FARM MACHINERY ENGINE MECHANIC-C Barber Carlisle FARM MACHINERY ENGINE MECHANIC Work Phone: [facility] 03-23-2023 14:35-0400 Body height 165.1 cm FARM MACHINERY ENGINE MECHANIC-C Barber Carlisle FARM MACHINERY ENGINE MECHANIC Work Phone: [facility] 03-23-2023 14:35-0400 Body temperature 98.2 [degF] FARM MACHINERY ENGINE MECHANIC-C Barber Nelsonson FARM MACHINERY ENGINE MECHANIC Work Phone: [facility] 03-23-2023 14:35-0400 Diastolic blood pressure 65 mm[Hg] FARM MACHINERY ENGINE MECHANIC-C Barber Carlisle FARM MACHINERY ENGINE MECHANIC Work Phone: [facility] 03-23-2023 14:35-0400 Heart rate 80 /min FARM MACHINERY ENGINE MECHANIC-C Barber Carlisle FARM MACHINERY ENGINE MECHANIC Work Phone: [facility] 03-23-2023 14:35-0400 Respiratory rate 16 /min FARM MACHINERY ENGINE MECHANIC-C Barber Carlisle FARM MACHINERY ENGINE MECHANIC Work Phone: [facility] 03-23-2023 14:35-0400 SaO2% (BldA) [Mass fraction] 99 % FARM MACHINERY ENGINE MECHANIC-C Barber Carlisle FARM MACHINERY ENGINE MECHANIC Work Phone: [facility] 03-23-2023 14:35-0400 Systolic blood pressure 100 mm[Hg] FARM MACHINERY ENGINE MECHANIC-C Barber Carlisle FARM MACHINERY ENGINE MECHANIC Work Phone: [facility] 03-09-2023 15:29-0400 Body temperature 98.2 [degF] FARM MACHINERY ENGINE MECHANIC-C Barber Carlisle FARM MACHINERY ENGINE MECHANIC Work Phone: [facility] 03-09-2023 15:29-0400 Diastolic blood pressure 63 mm[Hg] FARM MACHINERY ENGINE MECHANIC-C Barber Carlisle FARM MACHINERY ENGINE MECHANIC Work Phone: [facility] 03-09-2023 15:29-0400 Heart rate 89 /min FARM MACHINERY ENGINE MECHANIC-C Barber Carlisle FARM MACHINERY ENGINE MECHANIC Work Phone: [facility] 03-09-2023 15:29-0400 SaO2% (BldA) [Mass fraction] 96 % FARM MACHINERY ENGINE MECHANIC-C Barber Carlisle FARM MACHINERY ENGINE MECHANIC Work Phone: [facility] 03-09-2023 15:29-0400 Systolic blood pressure 117 mm[Hg] FARM MACHINERY ENGINE MECHANIC-C Barber Carlisle FARM MACHINERY ENGINE MECHANIC Work Phone: [facility] 03-09-2023 15:26-0400 Body height 165.1 cm FARM MACHINERY ENGINE MECHANIC-C Barber Carlisle FARM MACHINERY ENGINE MECHANIC Work Phone: [facility] 02-25-2023 13:27-0400 Heart rate 89 /min FARM MACHINERY ENGINE MECHANIC-C Barber Carlisle FARM MACHINERY ENGINE MECHANIC Work Phone: [facility] 02-25-2023 13:27-0400 Respiratory rate 20 /min FARM MACHINERY ENGINE MECHANIC-C Barber Carlisle FARM MACHINERY ENGINE MECHANIC Work Phone: [facility] 02-25-2023 11:49-0400 Body temperature 97.3 [degF] FARM MACHINERY ENGINE MECHANIC-C Barber Carlisle FARM MACHINERY ENGINE MECHANIC Work Phone: [facility] 02-25-2023 11:49-0400 Diastolic blood pressure 44 mm[Hg] FARM MACHINERY ENGINE MECHANIC-C Barber Carlisle FARM MACHINERY ENGINE MECHANIC Work Phone: [facility] 02-25-2023 11:49-0400 Inhaled oxygen flow rate 1 L/min FARM MACHINERY ENGINE MECHANIC-C Barber Carlisle FARM MACHINERY ENGINE MECHANIC Work Phone: [facility] 02-25-2023 11:49-0400 SaO2% (BldA) [Mass fraction] 98 % FARM MACHINERY ENGINE MECHANIC-C Barber Carlisle FARM MACHINERY ENGINE MECHANIC Work Phone: [facility] 02-25-2023 11:49-0400 Systolic blood pressure 103 mm[Hg] FARM MACHINERY ENGINE MECHANIC-C Barber Carlisle FARM MACHINERY ENGINE MECHANIC Work Phone: [facility] 02-25-2023 06:00-0400 Body mass index (BMI) [Ratio] 30.1 kg/m2 FARM MACHINERY ENGINE MECHANIC-C Barber Carlisle FARM MACHINERY ENGINE MECHANIC Work Phone: [facility] 02-25-2023 06:00-0400 Body weight 82.2 kg FARM MACHINERY ENGINE MECHANIC-C Barber Carlisle FARM MACHINERY ENGINE MECHANIC Work Phone: [facility] 02-21-2023 13:46-0400 Body height 165.1 cm FARM MACHINERY ENGINE MECHANIC-C Barber Carlisle FARM MACHINERY ENGINE MECHANIC Work Phone: [facility] 02-21-2023 07:00-0400 Inhaled oxygen concentration 50 % FARM MACHINERY ENGINE MECHANIC-C Barber Carlisle FARM MACHINERY ENGINE MECHANIC Work Phone: [facility] 02-18-2023 00:46-0400 Body temperature 96 [degF] FARM MACHINERY ENGINE MECHANIC-C Barber Carlisle FARM MACHINERY ENGINE MECHANIC Work Phone: [facility] 02-18-2023 00:46-0400 Diastolic blood pressure 65 mm[Hg] FARM MACHINERY ENGINE MECHANIC-C Barber Carlisle FARM MACHINERY ENGINE MECHANIC Work Phone: [facility] 02-18-2023 00:46-0400 Heart rate 70 /min FARM MACHINERY ENGINE MECHANIC-C Barber Carlisle FARM MACHINERY ENGINE MECHANIC Work Phone: [facility] 02-18-2023 00:46-0400 Respiratory rate 18 /min FARM MACHINERY ENGINE MECHANIC-C Barber Carlisle FARM MACHINERY ENGINE MECHANIC Work Phone: [facility] 02-18-2023 00:46-0400 SaO2% (BldA) [Mass fraction] 100 % FARM MACHINERY ENGINE MECHANIC-C Barber Carlisle FARM MACHINERY ENGINE MECHANIC Work Phone: [facility] 02-18-2023 00:46-0400 Systolic blood pressure 103 mm[Hg] FARM MACHINERY ENGINE MECHANIC-C Barber Carlisle FARM MACHINERY ENGINE MECHANIC Work Phone: [facility] 02-17-2023 22:25-0400 Inhaled oxygen concentration 100 % FARM MACHINERY ENGINE MECHANIC-C Barber Carlisle FARM MACHINERY ENGINE MECHANIC Work Phone: [facility] 02-17-2023 22:17-0400 Body height 165.1 cm FARM MACHINERY ENGINE MECHANIC-C Barber Carlisle FARM MACHINERY ENGINE MECHANIC Work Phone: [facility] 02-17-2023 22:17-0400 Body mass index (BMI) [Ratio] 33.8 kg/m2 FARM MACHINERY ENGINE MECHANIC-C Barber Carlisle FARM MACHINERY ENGINE MECHANIC Work Phone: [facility] 02-17-2023 22:17-0400 Body weight 92.3 kg FARM MACHINERY ENGINE MECHANIC-C Barber Carlisle FARM MACHINERY ENGINE MECHANIC Work Phone: [facility] 01-11-2023 13:49-0500 Body mass index (BMI) [Ratio] 32.5 kg/m2 FARM MACHINERY ENGINE MECHANIC-C Barber Carlisle FARM MACHINERY ENGINE MECHANIC Work Phone: [facility] 01-11-2023 13:49-0500 Body temperature 98.5 [degF] FARM MACHINERY ENGINE MECHANIC-C Barber Carlisle FARM MACHINERY ENGINE MECHANIC Work Phone: [facility] 01-11-2023 13:49-0500 Body weight 88.45 kg FARM MACHINERY ENGINE MECHANIC-C Barber Carlisle FARM MACHINERY ENGINE MECHANIC Work Phone: [facility] 01-11-2023 13:49-0500 Diastolic blood pressure 71 mm[Hg] FARM MACHINERY ENGINE MECHANIC-C Barber Carlisle FARM MACHINERY ENGINE MECHANIC Work Phone: [facility] 01-11-2023 13:49-0500 Heart rate 82 /min FARM MACHINERY ENGINE MECHANIC-C Barber Carlisle FARM MACHINERY ENGINE MECHANIC Work Phone: [facility] 01-11-2023 13:49-0500 Respiratory rate 17 /min FARM MACHINERY ENGINE MECHANIC-C Barber Carlisle FARM MACHINERY ENGINE MECHANIC Work Phone: [facility] 01-11-2023 13:49-0500 SaO2% (BldA) [Mass fraction] 98 % FARM MACHINERY ENGINE MECHANIC-C Barber Carlisle FARM MACHINERY ENGINE MECHANIC Work Phone: [facility] 01-11-2023 13:49-0500 Systolic blood pressure 110 mm[Hg] FARM MACHINERY ENGINE MECHANIC-C Barber Carlisle FARM MACHINERY ENGINE MECHANIC Work Phone: [facility] 11-11-2022 10:49-0500 Body height 165 cm FARM MACHINERY ENGINE MECHANIC-C Barber Carlisle FARM MACHINERY ENGINE MECHANIC Work Phone: [facility] Work Phone: 11-11-2022 10:35-0500 Body mass index (BMI) [Ratio] 31.9 kg/m2 FARM MACHINERY ENGINE MECHANIC-C Barber Carlisle FARM MACHINERY ENGINE MECHANIC Work Phone: [facility] 11-11-2022 10:35-0500 Body temperature 98 [degF] FARM MACHINERY ENGINE MECHANIC-C Barber Carlisle FARM MACHINERY ENGINE MECHANIC Work Phone: [facility] 11-11-2022 10:35-0500 Body weight 87.08 kg FARM MACHINERY ENGINE MECHANIC-C Barber Carlisle FARM MACHINERY ENGINE MECHANIC Work Phone: [facility] 11-11-2022 10:35-0500 Diastolic blood pressure 70 mm[Hg] FARM MACHINERY ENGINE MECHANIC-C Barber Carlisle FARM MACHINERY ENGINE MECHANIC Work Phone: [facility] 11-11-2022 10:35-0500 Heart rate 82 /min FARM MACHINERY ENGINE MECHANIC-C Barber Orestes FARM MACHINERY ENGINE MECHANIC Work Phone: [facility] 11-11-2022 10:35-0500 Respiratory rate 18 /min FARM MACHINERY ENGINE MECHANIC-C Barber Orestes FARM MACHINERY ENGINE MECHANIC Work Phone: [facility] 11-11-2022 10:35-0500 SaO2% (BldA) [Mass fraction] 91 % FARM MACHINERY ENGINE MECHANIC-C Barber Carlisle FARM MACHINERY ENGINE MECHANIC Work Phone: [facility] 11-11-2022 10:35-0500 Systolic blood pressure 115 mm[Hg] FARM MACHINERY ENGINE MECHANIC-C Barber Carlisle FARM MACHINERY ENGINE MECHANIC Work Phone: [facility] 07-27-2022 09:29-0400 Heart rate 93 /min DR TRACE MATTHEWS MD [facility] 07-27-2022 09:13-0400 Body temperature 96.8 [degF] DR TRACE MATTHEWS MD [facility] 07-27-2022 09:13-0400 Diastolic Blood Pressure NBP [address] TRACE MATTHEWS MD [facility] 07-27-2022 09:13-0400 Heart rate 99 /min DR TRACE MATTHEWS MD [facility] 07-27-2022 09:13-0400 Mean blood pressure 83 mm[Hg] DR TRACE MATTHEWS MD [facility] 07-27-2022 09:13-0400 Reason For Taking VItal Signs DR TRACE MATTHEWS MD [facility] 07-27-2022 09:13-0400 Systolic Blood Pressure NBP [address] TRACE MATTHEWS MD [address] [place] [address] 07-27-2022 04:38-0400 Body temperature 97.7 [degF] DR TRACE MATTHEWS MD [address] [place] [address] 07-27-2022 04:38-0400 Diastolic Blood Pressure NBP [address] TRACE MATTHEWS MD [address] [place] [address] 07-27-2022 04:38-0400 Heart rate 79 /min DR TRACE MATTHEWS MD [address] [place] [address] 07-27-2022 04:38-0400 Mean blood pressure 75 mm[Hg] DR TRACE MATTHEWS MD [address] [place] [address] 07-27-2022 04:38-0400 Reason For Taking VItal Signs DR TRACE MATTHEWS MD [address] [place] [address] 07-27-2022 04:38-0400 Respiratory rate 16 /min DR TRACE MATTHEWS MD [address] [place] [address] 07-27-2022 04:38-0400 Systolic Blood Pressure NBP [address] TRACE MATTHEWS MD [address] [place] [address] 07-26-2022 21:08-0400 Body temperature 98.24 [degF] DR TRACE MATTHEWS MD [address] [place] [address] 07-26-2022 21:08-0400 Diastolic Blood Pressure NBP [address] TRACE MATTHEWS MD [address] [place] [address] 07-26-2022 21:08-0400 Heart rate 113 /min DR TRACE MATTHEWS MD [address] [place] [address] 07-26-2022 21:08-0400 Mean blood pressure 74 mm[Hg] DR TRACE MATTHEWS MD [address] [place] [address] 07-26-2022 21:08-0400 Reason For Taking VItal Signs DR TRACE MATTHEWS MD [address] [place] [address] 07-26-2022 21:08-0400 Respiratory rate 18 /min DR TRACE MATTHEWS MD [address] [place] [address] 07-26-2022 21:08-0400 Systolic Blood Pressure NBP [address] TRACE MATTHEWS MD [address] [place] [address] 07-26-2022 16:00-0400 Respiratory rate 16 /min DR TRACE MATTHEWS MD [address] [place] [address] 07-26-2022 09:18-0400 Heart rate 100 /min DR TRACE MATTHEWS MD [address] [place] [address] 07-26-2022 00:35-0400 Diastolic blood pressure 52 mm[Hg] DR TRACE MATTHEWS MD [address] [place] [address] 07-26-2022 00:35-0400 Mean blood pressure 71 mm[Hg] DR TRACE MATTHEWS MD [address] [place] [address] 07-26-2022 00:35-0400 Systolic blood pressure 108 mm[Hg] DR TRACE MATTHEWS MD [address] [place] [address] 07-25-2022 07:55-0400 Heart rate 86 /min DR TRACE MATTHEWS MD [address] [place] [address] 07-24-2022 23:40-0400 Diastolic blood pressure 57 mm[Hg] DR TRACE MATTHEWS MD [address] [place] [address] 07-24-2022 23:40-0400 Mean blood pressure 81 mm[Hg] DR TRACE MATTHEWS MD [address] [place] [address] 07-24-2022 23:40-0400 Systolic blood pressure 128 mm[Hg] DR TRACE MATTHEWS MD [address] [place] [address] 07-24-2022 20:26-0400 Diastolic blood pressure 54 mm[Hg] DR TRACE MATTHEWS MD [address] [place] [address] 07-24-2022 20:26-0400 Mean blood pressure 77 mm[Hg] DR TRACE MATTHEWS MD [address] [place] [address] 07-24-2022 20:26-0400 Systolic blood pressure 124 mm[Hg] DR TRACE MATTHEWS MD [address] [place] [address] 07-21-2022 13:01-0400 Body temperature 96.62 [degF] DR TRACE MATTHEWS MD [address] [place] [address] 07-15-2022 11:49-0400 Diastolic blood pressure 45 mm[Hg] DR TRACE MATTHEWS MD [address] [place] [address] 07-15-2022 11:49-0400 Mean blood pressure 59 mm[Hg] DR TRACE MATTHEWS MD [address] [place] [address] 07-15-2022 11:49-0400 Systolic blood pressure 106 mm[Hg] DR TRACE MATTHEWS MD [address] [place] [address] 07-15-2022 09:23-0400 Diastolic blood pressure 80 mm[Hg] DR TRACE MATTHEWS MD [address] [place] [address] 07-15-2022 09:23-0400 Mean blood pressure 111 mm[Hg] DR TRACE MATTHEWS MD [address] [place] [address] 07-15-2022 09:23-0400 Systolic blood pressure 157 mm[Hg] DR TRCAE MATTHEWS MD [address] [place] [address] 07-15-2022 08:53-0400 Diastolic blood pressure 85 mm[Hg] DR TRACE MATTHEWS MD [address] [place] [address] 07-15-2022 08:53-0400 Mean blood pressure 113 mm[Hg] DR TRACE MATTHEWS MD [address] [place] [address] 07-15-2022 08:53-0400 Systolic blood pressure 153 mm[Hg] DR TRACE MATTHEWS MD [address] [place] [address] 07-15-2022 04:10-0400 SaO2% (BldA) [Mass fraction] 97.5 % DR TRACE MATTHEWS MD [facility] 07-13-2022 19:08-0400 SaO2% (BldA) [Mass fraction] 98.9 % DR TRACE MATTHEWS MD [facility] 07-13-2022 17:39-0400 SaO2% (BldA) [Mass fraction] 99.1 % DR TRACE MATTHEWS MD [facility] 07-13-2022 16:25-0400 Body temperature 97.84 [degF] DR TRACE MATTHEWS MD [address] [place] [address] 07-13-2022 16:20-0400 Body temperature 97.77 [degF] DR TRACE MATTHEWS MD [facility] 07-13-2022 16:15-0400 Body temperature 97.7 [degF] DR TRACE MATTHEWS MD [address] [place] [address] 07-13-2022 11:30-0400 Body height [address] TRACE MATTHEWS MD [address] [place] [address] 07-13-2022 11:30-0400 Body weight 98.[address] TRACE MATTHEWS MD [facility] 07-13-2022 11:30-0400 Body weight 36.25 kg/m2 DR TRACE MATTHEWS MD [facility] 07-11-2022 17:05-0400 Heart rate 97 /min DR TRACE MATTHEWS MD [address] [place] [address] 07-11-2022 14:31-0400 Heart rate 91 /min DR TRACE MATTHEWS MD [facility] 07-11-2022 11:20-0400 Body weight 98.[address] TRACE MATTHEWS MD [facility] 07-11-2022 11:20-0400 Heart rate 92 /min DR TRACE MATTHEWS MD [facility] 07-11-2022 10:00-0400 Diastolic blood pressure 76 mm[Hg] MARIANA RAMOS MD [facility] 07-11-2022 10:00-0400 Heart rate 89 /min MARIANA RAMOS MD [facility] 07-11-2022 10:00-0400 Mean blood pressure 97 mm[Hg] MARIANA RAMOS MD [facility] 07-11-2022 10:00-0400 Systolic blood pressure 139 mm[Hg] MARIANA RAMOS MD [facility] 07-11-2022 08:30-0400 Diastolic blood pressure 74 mm[Hg] MARIANA RAMOS MD [facility] 07-11-2022 08:30-0400 Heart rate 92 /min MARIANA RAMOS MD [facility] 07-11-2022 08:30-0400 Respiratory rate 16 /min MARIANA RAMOS MD [facility] 07-11-2022 08:30-0400 Systolic blood pressure 147 mm[Hg] MARIANA RAMOS MD [facility] 07-11-2022 07:34-0400 Body temperature 98.42 [degF] MARIANA RAMOS MD [facility] 07-11-2022 07:34-0400 Diastolic blood pressure 86 mm[Hg] MARIANA RAMOS MD [facility] 07-11-2022 07:34-0400 Heart rate 92 /min MARIANA RAMOS MD [facility] 07-11-2022 07:34-0400 Mean blood pressure 110 mm[Hg] MARIANA RAMOS MD [facility] 07-11-2022 07:34-0400 Respiratory rate 18 /min MARIANA RAMOS MD [facility] 07-11-2022 07:34-0400 Systolic blood pressure 158 mm[Hg] MARIANA RAMOS MD [facility] 12-04-2021 13:19-0500 Diastolic blood pressure 79 mm[Hg] LEONA RIOS MD [facility] 12-04-2021 13:19-0500 Heart rate 101 /min LEONA RIOS MD [facility] 12-04-2021 13:19-0500 Reason For Taking VItal Signs LEONA RIOS MD [facility] 12-04-2021 13:19-0500 Respiratory rate 18 /min LEONA RIOS MD [facility] 12-04-2021 13:19-0500 Systolic blood pressure 140 mm[Hg] LEONA RIOS MD [facility] 12-04-2021 11:12-0500 Diastolic blood pressure 76 mm[Hg] LEONA RIOS MD [facility] 12-04-2021 11:12-0500 Heart rate 106 /min LEONA RIOS MD [facility] 12-04-2021 11:12-0500 Reason For Taking VItal Signs LEONA RIOS MD [facility] 12-04-2021 11:12-0500 Respiratory rate 18 /min LEONA RIOS MD [facility] 12-04-2021 11:12-0500 Systolic blood pressure 139 mm[Hg] LEONA RIOS MD [facility] 12-04-2021 08:20-0500 Body temperature 98.24 [degF] LEONA RIOS MD [facility] 12-04-2021 08:20-0500 Diastolic blood pressure 79 mm[Hg] LEONA RIOS MD [facility] 12-04-2021 08:20-0500 Heart rate 98 /min LEONA RIOS MD [facility] 12-04-2021 08:20-0500 Respiratory rate 16 /min LEONA RIOS MD [facility] 12-04-2021 08:20-0500 Systolic blood pressure 145 mm[Hg] LEONA RIOS MD [facility] 09-15-2021 20:35-0400 Diastolic blood pressure 80 mm[Hg] JANKI ADAMS MD [facility] 09-15-2021 20:35-0400 Heart rate 100 /min JANKI ADAMS MD [facility] 09-15-2021 20:35-0400 Mean blood pressure 103 mm[Hg] JANKI ADAMS MD [facility] 09-15-2021 20:35-0400 Respiratory rate 22 /min JANKI ADAMS MD [facility] 09-15-2021 20:35-0400 Systolic blood pressure 148 mm[Hg] JANKI ADAMS MD [facility] 09-15-2021 19:24-0400 SaO2% (BldA) [Mass fraction] 99 % JANKI ADAMS MD [facility] 09-15-2021 18:26-0400 Body temperature 99.14 [degF] JANKI ADAMS MD [facility] 09-15-2021 18:26-0400 Body weight 96 kg JANKI ADAMS MD [facility] 09-15-2021 18:26-0400 Diastolic blood pressure 88 mm[Hg] JANKI ADAMS MD [facility] 09-15-2021 18:26-0400 Heart rate 107 /min JANKI ADAMS MD [facility] 09-15-2021 18:26-0400 Respiratory rate 20 /min JANKI ADAMS MD [facility] 09-15-2021 18:26-0400 Systolic blood pressure 156 mm[Hg] JANKI ADAMS MD [facility] Encounters Encounter Date Encounter Type Care Provider Facility Start: 09-06-2025 ambulatory Jonathan Gilma Jewell ty:[facility] Start: 09-04-2025 ambulatory Jonathan Gilma Jewell ty:[facility] Start: 11-01-2023 Patient encounter status Marlon Villareal MACHINE MAINTENANCE REPAIRER-TRAFFIC OR SYSTEM DISPATCHER Work Phone: [facility] Work Phone: Start: 10-31-2023 End: 10-31-2023 [facility] [place] Start: 10-31-2023 [facility]: 10-31-2023 End: 10-31-2023 Office outpatient visit 25 minutes Elida Poe Rafachristina MACHINE MAINTENANCE REPAIRER-TRAFFIC OR SYSTEM DISPATCHER Work Phone: [facility] [place] Comment on above: Preop cardiovascular exam (Primary Dx); Chronic systolic heart failure (CMS/HCC) Start: 10-31-2023 End: 10-31-2023 Patient encounter status Elida Villareal MACHINE MAINTENANCE REPAIRER-TRAFFIC OR SYSTEM DISPATCHER Work Phone: [facility] Work Phone: Start: 10-31-2023 End: 10-31-2023 ambulatory ELIDA Poe RAFACHRISTINA [facility] Start: 10-28-2023 End: 11-02-2023 ambulatory RITU HARRELL [facility] Start: 10-28-2023 End: 10-28-2023 [facility] Start: 10-28-2023 End: 10-28-2023 Encounter for other [facility]procedural examination [facility] Start: 10-28-2023 End: 10-28-2023 Admission to [facility] Work Phone: Start: 10-28-2023 End: 10-28-2023 Subsequent hospital visit by physician Marnie [id number] Cr Nonv1 Holter/Ecg Resource [facility] [place] Comment on above: Encounter for preadm ission testing Start: 10-20-2023 End: 10-20-2023 ambulatory BARBER CARLISLE [facility] Start: 10-17-2023 End: 10-17-2023 ambulatory VARSHA Poe [facility] Start: 10-17-2023 End: 10-17-2023 Office outpatient visit 40 minutes Varsha Sotelo MD Work Phone: [facility] [place] Comment on above: Colovaginal fistula (Primary Dx) Start: 10-11-2023 End: 10-11-[address] Jonathan Dillard Sr. Work Phone: [facility] Work Phone: Start: 10-11-2023 End: 10-11-[address] Jonathan Dillard Sr. Work Phone: [facility] Ultrasound Work Phone: Start: 10-11-[address] Jonathan acevedo SrChe Work Phone: [facility] Start: 10-04-[address] Jonathan acevedo Sr. Work Phone: [facility] Start: 10-03-[address] Jonathan acevedo SrChe Work Phone: [facility] Start: 09-15-2023 End: 09-28-2023 [facility] Start: 09-15-2023 End: 09-28-2023 Evaluation and management of inpatient Vevlet Jerez DO [facility] Start: 09-15-2023 End: 09-28-2023 Patient encounter status Velvet Jerez Work Phone: [facility] Start: 09-15-2023 Non-patient / Non-visit Dr. Kalen Hinds Work Phone: [facility] Start: 09-15-2023 Non-patient / Non-visit Dr. Kalen Hinds Work Phone: [facility] Work Phone: Start: 09-14-2023 End: 09-15-2023 Emergency department patient visit Dr. Jonathan Dillard Sr. Work Phone: [facility]Emergency Department Work Phone: Start: 09-13-2023 End: 09-13-[address] Jonathan Dillard Sr. Work Phone: [facility] Work Phone: Start: 09-13-2023 End: 09-13-[address] Jonathan Dillard Sr. Work Phone: [facility] Start: 09-13-[address] Jonathan acevedo Sr. Work Phone: [facility] Start: 09-09-2023 End: 09-09-[address] Jonathan Dillard Sr. Work Phone: [facility]-Laboratory, Specimen Work Phone: Start: 09-08-[address] Jonathan Dillard Sr. Work Phone: [facility] Start: 09-08-2023 End: 09-08-[address] Jonathan Dillard Sr. Work Phone: [facility] Work Phone: Start: 08-31-2023 End: 08-31-2023 ambulatory [facility] Work Phone: Start: 08-31-2023 End: 08-31-2023 Departed Referred [facility] Start: 08-31-2023 Registered Referred MD Jonathan Dillard [facility] Start: 08-29-2023 End: 08-30-[address] OSEI WOODWARD MD Facility:A Start: 08-29-2023 End: 08-29-[address] OSEI WOODWARD MD [facility] Start: 08-17-2023 End: 08-18-[address] MARK JEREZ MD Facility:B Start: 08-17-2023 End: 08-17-[address] MARK JEREZ MD [facility] Start: 08-16-2023 End: 08-16-2023 ambulatory MD Castillo [facility] Work Phone: Start: 08-16-2023 End: 08-16-2023 [facility]arted [facility] Start: 08-15-[address] MARK LOPEZ MD Facility:B Start: 08-15-2023 End: 08-16-[address] MARK JEREZ MD Facility:B Start: 08-15-2023 End: 08-15-[address] MARK JEREZ MD [facility] Start: 08-09-2023 End: 08-10-2023 Emergency department patient visit MD Jonathan Dillard [facility]Emergency Department Work Phone: Start: 07-14-2023 End: 07-14-2023 Emergency department patient visit FARM MACHINERY ENGINE MECHANIC-C Barber Carlisle FARM MACHINERY ENGINE MECHANIC Work Phone: [facility]Emer[facility] Department Work Phone: Start: 06-28-2023 End: 06-28-2023 ambulatory [facility] Work Phone: Start: 06-28-2023 End: 06-28-2023 Departed Referred MD Jonathan ELMORE [facility] Start: 06-28-2023 Registered Referred FARM MACHINERY ENGINE MECHANIC-C Flora Carlisle FARM MACHINERY ENGINE MECHANIC Work Phone: [facility] Start: 06-13-2023 End: 06-13-2023 ambulatory FARM MACHINERY ENGINE MECHANIC-C Barber Carlisle FARM MACHINERY ENGINE MECHANIC Work Phone: [facility] Work Phone: Start: 06-13-2023 End: 06-13-2023 Departed Referred FARM MACHINERY ENGINE MECHANIC-C Barber Carlisle FARM MACHINERY ENGINE MECHANIC Work Phone: [facility] Start: 05-04-2023 End: 05-04-2023 Patient encounter procedure FARM MACHINERY ENGINE MECHANIC-C Barber Carlisle FARM MACHINERY ENGINE MECHANIC Work Phone: [facility] Work Phone: Start: 05-04-2023 Registered Recurring FARM MACHINERY ENGINE MECHANIC-C Conor Carlisle FARM MACHINERY ENGINE MECHANIC Work Phone: [facility] Start: 04-19-2023 End: 04-19-2023 Emergency department patient visit FARM MACHINERY ENGINE MECHANIC-C Barber Carlisle FARM MACHINERY ENGINE MECHANIC Work Phone: [facility]Emergency Department Start: 04-12-2023 End: 04-12-2023 ambulatory FARM MACHINERY ENGINE MECHANIC-C Barber Carlisle FARM MACHINERY ENGINE MECHANIC Work Phone: [facility] Work Phone: Start: 04-12-2023 End: 04-12-2023 Departed Referred FARM MACHINERY ENGINE MECHANIC-C Barber Carlisle FARM MACHINERY ENGINE MECHANIC Work Phone: [facility] Start: 04-04-2023 End: 04-04-2023 Patient encounter procedure FARM MACHINERY ENGINE MECHANIC-C Barber Carlisle FARM MACHINERY ENGINE MECHANIC Work Phone: [facility]-Laboratory, Specimen Start: 04-04-2023 End: 04-04-2023 Patient encounter procedure FARM MACHINERY ENGINE MECHANIC-C Barber Carlisle FARM MACHINERY ENGINE MECHANIC Work Phone: [facility] Start: 03-28-2023 End: 03-28-2023 ambulatory FARM MACHINERY ENGINE MECHANIC-C Barber Carlisle FARM MACHINERY ENGINE MECHANIC Work Phone: [facility] Work Phone: Start: 03-28-2023 End: 03-28-2023 Departed Referred FARM MACHINERY ENGINE MECHANIC-C Barber Carlisle FARM MACHINERY ENGINE MECHANIC Work Phone: [facility] Start: 03-28-2023 Registered Referred FARM MACHINERY ENGINE MECHANIC-C Flora Carlisle FARM MACHINERY ENGINE MECHANIC Work Phone: [facility] Start: 03-23-2023 End: 03-23-2023 Patient encounter procedure FARM MACHINERY ENGINE MECHANIC-C Barber Carlisle FARM MACHINERY ENGINE MECHANIC Work Phone: [facility] Start: 03-18-2023 End: 03-18-2023 ambulatory FARM MACHINERY ENGINE MECHANIC-C Barber Carlisle FARM MACHINERY ENGINE MECHANIC Work Phone: [facility] Work Phone: Start: 03-18-2023 End: 03-18-2023 Patient encounter procedure FARM MACHINERY ENGINE MECHANIC-C Barber Carlisle FARM MACHINERY ENGINE MECHANIC Work Phone: [facility] Start: 03-09-2023 Registered Recurring FARM MACHINERY ENGINE MECHANIC-C Conor Carlisle FARM MACHINERY ENGINE MECHANIC Work Phone: [facility] Start: 03-09-2023 End: 03-09-2023 Patient encounter procedure FARM MACHINERY ENGINE MECHANIC-C Barber Carlisle FARM MACHINERY ENGINE MECHANIC Work Phone: [facility] Start: 03-08-2023 Registered Referred FARM MACHINERY ENGINE MECHANIC-C Flora Carlisle FARM MACHINERY ENGINE MECHANIC Work Phone: [facility] Start: 03-04-2023 Registered Referred FARM MACHINERY ENGINE MECHANIC-C Flora Carlisle FARM MACHINERY ENGINE MECHANIC Work Phone: [facility] Start: 02-28-2023 End: 02-28-2023 ambulatory FARM MACHINERY ENGINE MECHANIC-C Barber Carlisle FARM MACHINERY ENGINE MECHANIC Work Phone: [facility] Work Phone: Start: 02-28-2023 End: 02-28-2023 Departed Referred FARM MACHINERY ENGINE MECHANIC-C Barber Carlisle FARM MACHINERY ENGINE MECHANIC Work Phone: [facility] Start: 02-25-2023 Non-patient / Non-visit FARM MACHINERY ENGINE MECHANIC-C L asif Nelsonson FARM MACHINERY ENGINE MECHANIC Work Phone: [facility] Start: 02-24-2023 Non-patient / Non-visit FARM MACHINERY ENGINE MECHANIC-C L indalivia Lorson FARM MACHINERY ENGINE MECHANIC Work Phone: [facility] Start: 02-23-2023 Non-patient / Non-visit FARM MACHINERY ENGINE MECHANIC-C L indalivia Lorson FARM MACHINERY ENGINE MECHANIC Work Phone: [facility] Start: 02-23-2023 Non-patient / Non-visit FARM MACHINERY ENGINE MECHANIC-C L indalivia Lorson FARM MACHINERY ENGINE MECHANIC Work Phone: [facility] Start: 02-22-2023 Non-patient / Non-visit FARM MACHINERY ENGINE MECHANIC-C L indalivia Lorson FARM MACHINERY ENGINE MECHANIC Work Phone: [facility] Start: 02-22-2023 Non-patient / Non-visit FARM MACHINERY ENGINE MECHANIC-C L indsey Lorson FARM MACHINERY ENGINE MECHANIC Work Phone: [facility] Start: 02-21-2023 Non-patient / Non-visit FARM MACHINERY ENGINE MECHANIC-C L indalivia Lorson FARM MACHINERY ENGINE MECHANIC Work Phone: [facility] Start: 02-21-2023 Non-patient / Non-visit FARM MACHINERY ENGINE MECHANIC-C L indsey Lorson FARM MACHINERY ENGINE MECHANIC Work Phone: [facility] Start: 02-20-2023 Non-patient / Non-visit FARM MACHINERY ENGINE MECHANIC-C L asif Nelsonson FARM MACHINERY ENGINE MECHANIC Work Phone: [facility] Start: 02-20-2023 Non-patient / Non-visit FARM MACHINERY ENGINE MECHANIC-C L indalivia Lorson FARM MACHINERY ENGINE MECHANIC Work Phone: [facility] Start: 02-20-2023 Non-patient / Non-visit FARM MACHINERY ENGINE MECHANIC-C L indalivia Lorson FARM MACHINERY ENGINE MECHANIC Work Phone: [facility] Start: 02-19-2023 Non-patient / Non-visit FARM MACHINERY ENGINE MECHANIC-C L asif Lorson FARM MACHINERY ENGINE MECHANIC Work Phone: [facility] Start: 02-19-2023 Non-patient / Non-visit FARM MACHINERY ENGINE MECHANIC-C L asif Lorson FARM MACHINERY ENGINE MECHANIC Work Phone: [facility] Start: 02-18-2023 Non-patient / Non-visit FARM MACHINERY ENGINE MECHANIC-C L asif Lorson FARM MACHINERY ENGINE MECHANIC Work Phone: [facility] Start: 02-18-2023 Non-patient / Non-visit FARM MACHINERY ENGINE MECHANIC-C L asif Nelsonson FARM MACHINERY ENGINE MECHANIC Work Phone: [facility] Start: 02-18-2023 Non-patient / Non-visit FARM MACHINERY ENGINE MECHANIC-C L asif Lorson FARM MACHINERY ENGINE MECHANIC Work Phone: [facility] Start: 02-18-2023 End: 02-25-2023 Evaluation and management of inpatient FARM MACHINERY ENGINE MECHANIC-C Barber Carlisle FARM MACHINERY ENGINE MECHANIC Work Phone: [facility] Start: 02-07-2023 End: 02-07-2023 ambulatory FARM MACHINERY ENGINE MECHANIC-C Barber Carlisle FARM MACHINERY ENGINE MECHANIC Work Phone: [facility] Work Phone: Start: 02-07-2023 End: 02-07-2023 Departed Referred FARM MACHINERY ENGINE MECHANIC-C Barber Carlisle FARM MACHINERY ENGINE MECHANIC Work Phone: [facility] Start: 02-07-2023 Registered Referred FARM MACHINERY ENGINE MECHANIC-C Flora Carlisle FARM MACHINERY ENGINE MECHANIC Work Phone: [facility] Start: 01-11-2023 End: 01-11-2023 Patient encounter procedure FARM MACHINERY ENGINE MECHANIC-C Barber Carlisle FARM MACHINERY ENGINE MECHANIC Work Phone: [facility] Start: 01-11-2023 Registered Recurring FARM MACHINERY ENGINE MECHANIC-C Conor Carlisle FARM MACHINERY ENGINE MECHANIC Work Phone: [facility] Start: 11-11-2022 End: 11-11-2022 Patient encounter procedure FARM MACHINERY ENGINE MECHANIC-C Barber Carlisle FARM MACHINERY ENGINE MECHANIC Work Phone: [facility] Start: 11-01-2022 End: 11-01-2022 ambulatory FARM MACHINERY ENGINE MECHANIC-C Barber Carlisle FARM MACHINERY ENGINE MECHANIC Work Phone: [facility] Work Phone: Start: 11-01-2022 End: 11-01-2022 Departed Referred FARM MACHINERY ENGINE MECHANIC-C Barber Carlisle FARM MACHINERY ENGINE MECHANIC Work Phone: [facility] Start: 11-01-2022 Registered Referred FARM MACHINERY ENGINE MECHANIC-C Flora Carlisle FARM MACHINERY ENGINE MECHANIC Work Phone: [facility] Start: 10-26-2022 End: 10-27-2022 ambulatory TRCAE MATTHEWS MD Facility:B Start: 10-26-2022 End: 10-26-[address] TRACE MATTHEWS MD [facility] Start: 10-05-2022 End: 10-05-2022 Patient encounter procedure RENETTA GAURI JOYN-TRAFFIC OR SYSTEM DISPATCHER [facility] Start: 10-05-2022 End: 10-06-2022 ambulatory FARM MACHINERY ENGINE MECHANIC-C Barber Carlisle FARM MACHINERY ENGINE MECHANIC Work Phone: [facility] Work Phone: Start: 10-05-2022 End: 10-05-2022 Departed Referred FARM MACHINERY ENGINE MECHANIC-C Barber Carlisle FARM MACHINERY ENGINE MECHANIC Work Phone: [facility] Start: 10-05-2022 Registered Referred [facility] Start: 09-29-2022 End: 09-29-2022 ambulatory FARM MACHINERY ENGINE MECHANIC-C Barber Carlisle FARM MACHINERY ENGINE MECHANIC Work Phone: [facility] Work Phone: Start: 09-29-2022 End: 09-29-2022 Departed Referred FARM MACHINERY ENGINE MECHANIC-C Barber Carlisle FARM MACHINERY ENGINE MECHANIC Work Phone: [facility] Start: 09-29-2022 Registered Referred [facility] Start: 09-09-2022 End: 09-09-2022 Patient encounter procedure [facility]ENETTA [facility]JO [facility] Start: 09-08-2022 End: 09-08-2022 ambulatory [facility] Work Phone: Start: 09-08-2022 End: 09-08-2022 Departed Referred [facility] Start: 09-08-2022 Registered Referred [facility] Start: 09-01-2022 End: 09-01-2022 ambulatory [facility] Work Phone: Start: 09-01-2022 End: 09-01-2022 Departed Referred [facility] Start: 09-01-2022 Registered Referred [facility] Start: 08-26-2022 End: 08-26-2022 ambulatory [facility] Work Phone: Start: 08-26-2022 End: 08-26-2022 Departed Referred [facility] Start: 08-12-2022 End: 08-12-[address] TRACE MATTHEWS MD [facility] Start: 08-10-2022 End: 08-10-2022 Admission to same day surgery center BARBER CARLISLE MACHINE MAINTENANCE REPAIRER-TRAFFIC OR SYSTEM DISPATCHER [facility] Start: 08-02-2022 Registered Referred [facility] Start: 07-14-2022 End: 07-14-2022 Admission to same day surgery center ARYAN Buckner ТАТЬЯНА MACHINE MAINTENANCE REPAIRER-TRAFFIC OR SYSTEM DISPATCHER [facility] Start: 07-11-2022 End: 07-27-2022 Evaluation and management of inpatient DR TRACE MATTHEWS MD [facility] Start: 07-11-2022 End: 07-11-2022 Emergency department patient visit MARIANA RAMOS MD [facility] Start: 12-04-2021 End: 12-04-2021 Emergency department patient visit LEONA RIOS MD [facility] Start: 09-15-2021 End: 09-15-2021 Emergency department patient visit JANKI ADAMS MD [facility] Start: 09-15-2021 End: 09-15-2021 Patient encounter procedure BARBER CARLISLE MACHINE MAINTENANCE REPAIRER-TRAFFIC OR SYSTEM DISPATCHER [facility] Start: 08-15-[address] [facility] Procedures Date Procedure Procedure Detail Performing Clinician Start: 11-02-2023 ECG 12-LEAD BARBER CARLISLE Start: 11-02-2023 Ecg routine ecg w/least 12 lds trcg only w/o i&r Humphrey El MD Work Phone: Start: 10-31-2023 CBC panel - Blood by Automated count BARBER CARLISLE Start: 10-31-2023 Comprehensive metabolic 2000 panel - Serum or Plasma BARBER CARLISLE Start: 10-31-2023 Natriuretic peptide B [Mass/volume] in Blood BARBER CARLISLE Start: 10-28-2023 CBC W Auto Differential panel - Blood BARBER ORESTES Start: 10-28-2023 Comprehensive metabolic 2000 panel - Serum or Plasma BARBER CARLISLE Start: 10-28-2023 Prealbumin [Mass/volume] in Serum or Plasma BARBER CARLISLE Start: 10-28-2023 STAPHYLOCOCCUS AUREUS/MRSA COLONIZATION, CULTURE BARBER CARLISLE Start: 10-28-2023 TYPE AND SCREEN BARBER CARLISLE Start: 10-11-[address] Jonathan Escamilla [facility]. Work Phone: Start: 09-28-2023 SARS-COV-2 PCR, SYMPTOMATIC BARBER GOLD ON Start: 09-28-2023 CBC panel - Blood by Automated count BARBER CARLISLE Start: 09-28-2023 Magnesium [Mass/volume] in Serum or Plasma BARBER CARLISLE Start: 09-28-2023 RENAL FUNCTION PANEL BARBER CARLISLE Start: 09-28-2023 Sars-cov-2 detection by dna/rna Nancy Treviño MACHINE MAINTENANCE REPAIRER-TRAFFIC OR SYSTEM DISPATCHER Work Phone: Start: 09-28-2023 Blood count complete automated Fran Brenner MD Work Phone: Start: 09-27-2023 ECG 12-LEAD BARBER CARLISLE Start: 09-27-2023 PROVIDER CERTIFICATION BARBER CARLISLE Start: 09-27-2023 DISCHARGE PATIENT BARBER CARLISLE Start: 09-27-2023 ADULT DISCHARGE DIET BARBER CARLISLE Start: 09-27-2023 DISCHARGE ACTIVITY BARBER CARLISLE Start: 09-27-2023 DISCHARGE CATHETER CARE BARBER CARLISLE Start: 09-27-2023 MEDICATION ADMINISTRATION BARBER CARLISLE Start: 09-27-2023 NOTIFY PROVIDER (DO NOT PROMPT FOR PARAMETERS) BARBER CARLISLE Start: 09-27-2023 SNF DISCHARGE POTENTIAL BARBER CARLISLE Start: 09-27-2023 SNF LEVEL OF CARE BARBER CARLISLE Start: 09-27-2023 SNF RECEIVING AGENCY STANDING ORDERS BARBER CARLISLE Start: 09-27-2023 SNF REHAB POTENTIAL BARBER CARLISLE Start: 09-27-2023 VITAL SIGNS BARBER CARLISLE Start: 09-27-2023 WEIGH PATIENT BARBER CARLISLE Start: 09-27-2023 SARS-COV-2 PCR, SYMPTOMATIC BARBER GOLD ON Start: 09-27-2023 Ecg routine ecg w/least 12 lds trcg only w/o i&r Fran Brenner MD Work Phone: Start: 09-27-2023 Sars-cov-2 detection by dna/rna Nancy Treviño MACHINE MAINTENANCE REPAIRER-TRAFFIC OR SYSTEM DISPATCHER Work Phone: Start: 09-27-2023 CBC panel - Blood by Automated count BARBER CARLISLE Start: 09-27-2023 Cyanocobalamin vitamin b-12 BARBER GOLD ON Start: 09-27-2023 FOLATE BARBER CARLISLE Start: 09-27-2023 Magnesium [Mass/volume] in Serum or Plasma BARBER CARLISLE Start: 09-27-2023 RENAL FUNCTION PANEL BARBER CARLISLE Start: 09-27-2023 Renal function panel Fran Brenner MD Work Phone: Start: 09-26-2023 TELEMETRY MONITORING BARBER ORESTES Start: 09-26-2023 CT ANGIO CORONARY ART WITH HEARTFLOW IF SCORE >30% BARBER CARLISLE Start: 09-26-2023 Cta hrt cornry art/bypass grfts contrst 3d post Kang Julian MD Work Phone: Start: 09-26-2023 ECG 12-LEAD BARBER CARLISLE Start: 09-26-2023 Ecg routine ecg w/least 12 lds trcg only w/o i&r Kang Julian MD Work Phone: Start: 09-26-2023 CBC panel - Blood by Automated count BARBER CARLISLE Start: 09-26-2023 Magnesium [Mass/volume] in Serum or Plasma BARBER CARLISLE Start: 09-26-2023 RENAL FUNCTION PANEL BARBER CARLISLE Start: 09-26-2023 Renal function panel Fran Brenner MD Work Phone: Start: 09-24-2023 CBC panel - Blood by Automated count BARBER ORESTES Start: 09-24-2023 Magnesium [Mass/volume] in Serum or Plasma BARBER NELSONETHAN Start: 09-24-2023 RENAL FUNCTION PANEL BARBER NELSONETHAN Start: 09-24-2023 Renal function panel Fran Brenner MD Work Phone: Start: 09-24-2023 Glucose [Mass/volume] in Serum or Plasma BARBER ORESTES Start: 09-23-2023 Glucose quantitative blood xcpt reagent strip Varsha Stoelo MD Work Phone: Start: 09-23-2023 Glucose [Mass/volume] in Serum or Plasma BARBER ORESTES Start: 09-23-2023 Glucose quantitative blood xcpt reagent strip Varsha Sotelo MD Work Phone: Start: 09-23-2023 Carcinoembryonic antigen cea BARBER LONG Start: 09-23-2023 Carcinoembryonic antigen cea Fran phan MD Work Phone: Start: 09-23-2023 INSERT URETHRAL CATHETER BARBER ORESTES Start: 09-23-2023 CARDIAC CATHETERIZATION - CORONARY FLORA CARLISLE Start: 09-23-2023 CBC panel - Blood by Automated count BARBER ORESTES Start: 09-23-2023 Magnesium [Mass/volume] in Serum or Plasma BARBER ORESTES Start: 09-23-2023 RENAL FUNCTION PANEL BARBER ORESTES Start: 09-23-2023 Renal function panel Fran Brenner MD Work Phone: Start: 09-23-2023 Glucose [Mass/volume] in Serum or Plasma BARBER CARLISLE Start: 09-22-2023 Glucose quantitative blood xcpt reagent strip Varsha Sotelo MD Work Phone: Start: 09-22-2023 Glucose [Mass/volume] in Serum or Plasma BARBER CARLISLE Start: 09-22-2023 IP CONSULT TO INFECTIOUS DISEASES CARLTON CARLISLE Start: 09-22-2023 Glucose quantitative blood xcpt reagent strip Varsha Sotelo MD Work Phone: Start: 09-22-2023 CASE REQUEST SUPERVISOR SEWER SYSTEM BARBER CARLISLE Start: 09-22-2023 Glucose [Mass/volume] in Serum or Plasma BARBER CARLISLE Start: 09-22-2023 Glucose quantitative blood xcpt reagent strip Varsha Sotelo MD Work Phone: Start: 09-22-2023 Glucose [Mass/volume] in Serum or Plasma BARBER CARLISLE Start: 09-22-2023 CBC panel - Blood by Automated count BARBER NELSONETHAN Start: 09-22-2023 Magnesium [Mass/volume] in Serum or Plasma BARBER CARLISLE Start: 09-22-2023 RENAL FUNCTION PANEL BARBER CARLISLE Start: 09-22-2023 End: 09-22-2023 Renal function panel Fran Brenner MD Work Phone: Start: 09-21-2023 Glucose [Mass/volume] in Serum or Plasma BARBER CARLISLE Start: 09-21-2023 Glucose quantitative blood xcpt reagent strip Varsha Sotelo MD Work Phone: Start: 09-21-2023 Glucose [Mass/volume] in Serum or Plasma BARBER CARLISLE Start: 09-21-2023 Glucose quantitative blood xcpt reagent strip Varsha Sotelo MD Work Phone: Start: 09-21-2023 Glucose [Mass/volume] in Serum or Plasma BARBER ORESTES Start: 09-21-2023 Glucose quantitative blood xcpt reagent strip Varsha Sotelo MD Work Phone: Start: 09-21-2023 MR PELVIS W AND WO IV CONTRAST BARBER URIAS Start: 09-21-2023 Glucose [Mass/volume] in Serum or Plasma BARBER CARLISLE Start: 09-21-2023 Mri pelvis w/o & w/contrast material Kang Julian MD Work Phone: Start: 09-21-2023 CBC panel - Blood by Automated count BARBER NELSONETHAN Start: 09-21-2023 Magnesium [Mass/volume] in Serum or Plasma BARBER CARLISLE Start: 09-21-2023 RENAL FUNCTION PANEL BARBER CARLISLE Start: 09-21-2023 Glucose quantitative blood xcpt reagent strip Varsha Sotelo MD Work Phone: Start: 09-21-2023 Glucose [Mass/volume] in Serum or Plasma BARBER CARLISLE Start: 09-21-2023 Renal function panel Fran Brenner MD Work Phone: Start: 09-21-2023 Glucose quantitative blood xcpt reagent strip Varsha Sotelo MD Work Phone: Start: 09-21-2023 Glucose [Mass/volume] in Serum or Plasma BARBERALIVIA CARLISLE Start: 09-21-2023 Glucose quantitative blood xcpt reagent strip Varsha Sotelo MD Work Phone: Start: 09-20-2023 Glucose [Mass/volume] in Serum or Plasma BARBER LESLIEETHAN Start: 09-20-2023 Glucose quantitative blood xcpt reagent strip Varsha Sotelo MD Work Phone: Start: 09-20-2023 Glucose [Mass/volume] in Serum or Plasma BARBERALIVIA CARLISLE Start: 09-20-2023 IP CONSULT TO HEART FAILURE BARBER NELSONPito ON Start: 09-20-2023 Bacteria identified in Urine by Culture BARBER CARLISLE Start: 09-20-2023 Glucose quantitative blood xcpt reagent strip Varsha Sotelo MD Work Phone: Start: 09-20-2023 Culture bacterial quanttative colony count urine Kang Julian MD Work Phone: Start: 09-20-2023 Glucose [Mass/volume] in Serum or Plasma BARBER CARLISLE Start: 09-20-2023 TRANSTHORACIC ECHO (TTE) COMPLETE CARLTON CARLISLE Start: 09-20-2023 Glucose quantitative blood xcpt reagent strip Varsha Sotelo MD Work Phone: Start: 09-20-2023 NURSING COMMUNICATION - DO NOT USE IN ORDER SETS BARBER CARLISLE Start: 09-20-2023 Echo tthrc r-t 2d w/wom-mode compl spec&colr d Varsha Sotelo MD Work Phone: Start: 09-20-2023 Glucose [Mass/volume] in Serum or Plasma BARBER CARLISLE Start: 09-20-2023 Glucose quantitative blood xcpt reagent strip Varsha Sotelo MD Work Phone: Start: 09-20-2023 CANCER ANTIGEN 19-9 BARBRE CARLISLE Start: 09-20-2023 CBC panel - Blood by Automated count BARBER CARLISLE Start: 09-20-2023 HEPATITIS C ANTIBODY BARBER CARLISLE Start: 09-20-2023 HIV 1/2 ANTIGEN/ANTIBODY SCREEN WIH REFLEX TO CONFIRMATION BARBER CARLISLE Start: 09-20-2023 Magnesium [Mass/volume] in Serum or Plasma BARBER CARLISLE Start: 09-20-2023 RENAL FUNCTION PANEL BARBER CARLISLE Start: 09-20-2023 Glucose [Mass/volume] in Serum or Plasma BARBER CARLISLE Start: 09-20-2023 Iaad ia hiv-1 ag w/hiv-1 & hiv-2 antbdy single Kang Julian MD Work Phone: Start: 09-20-2023 Immunoassay tumor antigen quantitative ca 19-9 Michelle Hendrickson MD Work Phone: Start: 09-20-2023 Renal function panel Fran Brenner MD Work Phone: Start: 09-20-2023 Glucose quantitative blood xcpt reagent strip Varsha Sotelo MD Work Phone: Start: 09-20-2023 Glucose [Mass/volume] in Serum or Plasma BARBER CARLISLE Start: 09-20-2023 Glucose quantitative blood xcpt reagent strip Varsha Sotelo MD Work Phone: Start: 09-20-2023 Glucose [Mass/volume] in Serum or Plasma BARBER CARLISLE Start: 09-19-2023 Glucose [Mass/volume] in Serum or Plasma BARBER CARLISLE Start: 09-19-2023 Glucose quantitative blood xcpt reagent strip Varsha Sotelo MD Work Phone: Start: 09-19-2023 Glucose [Mass/volume] in Serum or Plasma BARBER CARLISLE Start: 09-19-2023 US ABDOMEN LIMITED LIVER BARBER ORESTES Start: 09-19-2023 VASC US ABDOMINAL/PELVIC DUPLEX COMPLETE BARBER ORESTES Start: 09-19-2023 Glucose quantitative blood xcpt reagent strip Varsha Sotelo MD Work Phone: Start: 09-19-2023 Glucose quantitative blood xcpt reagent strip Varsha Sotelo MD Work Phone: Start: 09-19-2023 Us abdominal real time w/image limited Kang Julian MD Work Phone: Start: 09-19-2023 CT HEAD WO IV CONTRAST BARBER CARLISLE Start: 09-19-2023 BLOOD GAS ARTERIAL BARBER CARLISLE Start: 09-19-2023 Ct head/brain w/o contrast material Kang Julian MD Work Phone: Start: 09-19-2023 Glucose [Mass/volume] in Serum or Plasma BARBER CARLISLE Start: 09-19-2023 Gases blood ph direct celina xcpt pulse oximitry Kang Julian MD Work Phone: Start: 09-19-2023 CBC panel - Blood by Automated count BARBER CARLISLE Start: 09-19-2023 COAGULATION SCREEN BARBER CARLISEL Start: 09-19-2023 Magnesium [Mass/volume] in Serum or Plasma BARBER CARLISLE Start: 09-19-2023 Natriuretic peptide B [Mass/volume] in Blood BARBER CARLISLE Start: 09-19-2023 RENAL FUNCTION PANEL BARBER CARLISLE Start: 09-19-2023 Glucose quantitative blood xcpt reagent strip Varsha Sotelo MD Work Phone: Start: 09-19-2023 XR CHEST 1 VIEW BARBER CARLISLE Start: 09-19-2023 Renal function panel Fran Brenner MD Work Phone: Start: 09-19-2023 Glucose [Mass/volume] in Serum or Plasma BARBER CARLISLE Start: 09-19-2023 Radiologic exam chest single view Rima rodriguez MD Work Phone: Start: 09-19-2023 Glucose quantitative blood xcpt reagent strip Varsha Sotelo MD Work Phone: Start: 09-19-2023 Glucose [Mass/volume] in Serum or Plasma BARBER ORESTES Start: 09-19-2023 Glucose quantitative blood xcpt reagent strip Varsha Sotelo MD Work Phone: Start: 09-18-2023 IP CONSULT TO GASTROENTEROLOGY BARBER URIAS Start: 09-18-2023 CANCER ANTIGEN 125 BARBER CARLISLE Start: 09-18-2023 Ferritin [Mass/volume] in Serum or Plasma BARBER CARLISLE Start: 09-18-2023 HEPATITIS B SURFACE ANTIGEN BARBER OWEN Start: 09-18-2023 IRON AND TIBC BARBER CARLISLE Start: 09-18-2023 Prealbumin [Mass/volume] in Serum or Plasma BARBER CARLISLE Start: 09-18-2023 Glucose [Mass/volume] in Serum or Plasma BARBER CARLISLE Start: 09-18-2023 Assay of ferritin Rima Apple MD Work Phone: Start: 09-18-2023 Iaad ia hepatitis b surface antigen Kang Julian MD Work Phone: Start: 09-18-2023 Immunoassay tumor antigen quantitative ca 125 Michelle Hendrickson MD Work Phone: Start: 09-18-2023 Glucose [Mass/volume] in Serum or Plasma BARBER CARLISLE Start: 09-18-2023 Glucose quantitative blood xcpt reagent strip Varsha Sotelo MD Work Phone: Start: 09-18-2023 Glucose quantitative blood xcpt reagent strip Varsha Sotelo MD Work Phone: Start: 09-18-2023 Glucose [Mass/volume] in Serum or Plasma BARBER CARLISLE Start: 09-18-2023 Glucose quantitative blood xcpt reagent strip Varsha Sotelo MD Work Phone: Start: 09-18-2023 CBC panel - Blood by Automated count BARBER CARLISLE Start: 09-18-2023 Hemoglobin A1c/Hemoglobin.total in Blood BARBER CARLISLE Start: 09-18-2023 Hepatic function 2000 panel - Serum or Plasma BARBER CARLISLE Start: 09-18-2023 Magnesium [Mass/volume] in Serum or Plasma BARBER CARLISLE Start: 09-18-2023 Natriuretic peptide B [Mass/volume] in Blood BARBER CARLISLE Start: 09-18-2023 RENAL FUNCTION PANEL BARBER CARLISLE Start: 09-18-2023 Assay of phosphorus inorganic Fran shah MD Work Phone: Start: 09-17-2023 Glucose [Mass/volume] in Serum or Plasma BARBER CARLISLE Start: 09-17-2023 Glucose quantitative blood xcpt reagent strip Varsha Sotelo MD Work Phone: Start: 09-17-2023 Glucose [Mass/volume] in Serum or Plasma BARBER CARLISLE Start: 09-17-2023 Glucose quantitative blood xcpt reagent strip Varsha Sotelo MD Work Phone: Start: 09-17-2023 Glucose [Mass/volume] in Serum or Plasma BARBER CARLISLE Start: 09-17-2023 Glucose quantitative blood xcpt reagent strip Varsha Sotelo MD Work Phone: Start: 09-17-2023 Glucose [Mass/volume] in Serum or Plasma BARBER CARLISLE Start: 09-17-2023 Glucose quantitative blood xcpt reagent strip Varsha Sotelo MD Work Phone: Start: 09-17-2023 CBC panel - Blood by Automated count BARBER CARLISLE Start: 09-17-2023 Magnesium [Mass/volume] in Serum or Plasma BARBER CARLISLE Start: 09-17-2023 RENAL FUNCTION PANEL BARBER CARLISLE Start: 09-17-2023 Renal function panel Fran Brenner MD Work Phone: Start: 09-16-2023 Glucose [Mass/volume] in Serum or Plasma BARBER CARLISLE Start: 09-16-2023 Glucose quantitative blood xcpt reagent strip Varsha Sotelo MD Work Phone: Start: 09-16-2023 INSERT URETHRAL CATHETER BARBER CARLISLE Start: 09-16-2023 TRANSFER PATIENT TO NEW UNIT BARBER LONG Start: 09-16-2023 Glucose [Mass/volume] in Serum or Plasma BARBER CARLISLE Start: 09-16-2023 Glucose quantitative blood xcpt reagent strip Delfin Melara MD Work Phone: Start: 09-16-2023 Glucose [Mass/volume] in Serum or Plasma BARBER ORESTES Start: 09-16-2023 CBC panel - Blood by Automated count BARBER ORESTES Start: 09-16-2023 Magnesium [Mass/volume] in Serum or Plasma BARBER NELSONETHAN Start: 09-16-2023 RENAL FUNCTION PANEL BARBER CARLISLE Start: 09-16-2023 Glucose quantitative blood xcpt reagent strip Delfin Melara MD Work Phone: Start: 09-16-2023 Renal function panel Gina Rush MD Work Phone: Start: 09-16-2023 Glucose [Mass/volume] in Serum or Plasma BARBER ORESTES Start: 09-16-2023 Glucose quantitative blood xcpt reagent strip Delfin Melara MD Work Phone: Start: 09-16-2023 Glucose [Mass/volume] in Serum or Plasma BARBER ORESTES Start: 09-16-2023 Glucose quantitative blood xcpt reagent strip Delfin Melara MD Work Phone: Start: 09-15-2023 COAGULATION SCREEN BARBER LESLIEETHAN Start: 09-15-2023 CBC W Auto Differential panel - Blood BARBER LESLIEETHAN Start: 09-15-2023 Comprehensive metabolic 2000 panel - Serum or Plasma BARBER ORESTES Start: 09-15-2023 Magnesium [Mass/volume] in Serum or Plasma BARBER ORESTES Start: 09-15-2023 TYPE AND SCREEN BARBER ORESTES Start: 09-15-2023 WEIGH PATIENT BARBER CARLISLE Start: 09-15-2023 Blood typing serologic rh (d) Gina littlejohn MD Work Phone: Start: 09-15-2023 End: 09-15-2023 Comprehensive metabolic panel Gina littlejohn MD Work Phone: Start: 09-15-2023 Culture bacterial blood aerobic w/id isolates Gina Rush MD Work Phone: Start: 09-15-2023 ADMIT TO INPATIENT BARBER CARLISLE Start: 09-15-2023 Bacteria identified in Blood by Culture Dr. Jonathan Dillard Sr. Work Phone: Start: 09-15-2023 Computed tomography of abdomen and pelvis with intravenous contrast Dr. Jonathan Dillard Sr. Work Phone: Start: 09-08-[address] Jonathan Dillard Sr. Work Phone: Start: 08-31-2023 Urine culture Start: 08-16-2023 Urine culture MD Jonathan ELMORE Start: 07-14-2023 Computed tomography of abdomen and pelvis with intravenous contrast FARM MACHINERY ENGINE MECHANIC-C Barber Carlisle FARM MACHINERY ENGINE MECHANIC Work Phone: Start: 04-19-2023 Computed tomography of abdomen and pelvis with intravenous contrast FARM MACHINERY ENGINE MECHANIC-C Barber Orestes FARM MACHINERY ENGINE MECHANIC Work Phone: Start: 04-12-2023 Urine culture FARM MACHINERY ENGINE MECHANIC-C Barber Carlisle FARM MACHINERY ENGINE MECHANIC Work Phone: Start: 03-18-2023 Bilateral mammography FARM MACHINERY ENGINE MECHANIC-C Barber Orestes FARM MACHINERY ENGINE MECHANIC Work Phone: Start: 03-18-2023 Ultrasonography of breast FARM MACHINERY ENGINE MECHANIC-C Barber Orestes FARM MACHINERY ENGINE MECHANIC Work Phone: Start: 03-18-2023 CT of soft tissues of neck with contrast FARM MACHINERY ENGINE MECHANIC-C Barber Carlisle FARM MACHINERY ENGINE MECHANIC Work Phone: Start: 02-20-2023 Plain chest X-ray FARM MACHINERY ENGINE MECHANIC-C Barber Carlisle FARM MACHINERY ENGINE MECHANIC Work Phone: Start: 02-19-2023 Plain chest X-ray FARM MACHINERY ENGINE MECHANIC-C Barber Carlisle FARM MACHINERY ENGINE MECHANIC Work Phone: Start: 02-18-2023 Ultrasonography of thorax FARM MACHINERY ENGINE MECHANIC-C Barber Carlisle FARM MACHINERY ENGINE MECHANIC Work Phone: Start: 02-18-2023 CT of chest without contrast FARM MACHINERY ENGINE MECHANIC-C Carlton Carlisle FARM MACHINERY ENGINE MECHANIC Work Phone: Start: 02-17-2023 CT of head without contrast FARM MACHINERY ENGINE MECHANIC-C Barber Carlisle FARM MACHINERY ENGINE MECHANIC Work Phone: Start: 02-17-2023 Plain chest X-ray FARM MACHINERY ENGINE MECHANIC-C Barber Nelsonethan FARM MACHINERY ENGINE MECHANIC Work Phone: Start: 07-13-2022 Excision of cervical intervertebral disc BARBER ORESTES MACHINE MAINTENANCE REPAIRER-TRAFFIC OR SYSTEM DISPATCHER Comment on above: ACDF Appendectomy Kandi Sharma Appendectomy BARBER NELSONETHAN MACHINE MAINTENANCE REPAIRER-TRAFFIC OR SYSTEM DISPATCHER Comment on above: left water taken off Arthroscopic knee operation BARBER ORESTES MACHINE MAINTENANCE REPAIRER-TRAFFIC OR SYSTEM DISPATCHER Comment on above: right Arthroscopy of knee Kandi rai Bacteria identified in Blood by Culture FARM MACHINERY ENGINE MECHANIC-C Barber Carlisle FARM MACHINERY ENGINE MECHANIC Work Phone: Cardiac catheter (physical object) BARBER ORESTES MACHINE MAINTENANCE REPAIRER-TRAFFIC OR SYSTEM DISPATCHER Comment on above: years ago Cardiac catheterization Marilyn Sharma Cataract surgery Kandi Castorena er Cholecystectomy Kandi Francis r Cholecystectomy BARBER LESLIEPito ON MACHINE MAINTENANCE REPAIRER-TRAFFIC OR SYSTEM DISPATCHER Clostridium difficile detection FARM MACHINERY ENGINE MECHANIC-C Barber Carlisle FARM MACHINERY ENGINE MECHANIC Work Phone: Colonoscopy Kadni Sharma Colonoscopy BARBER ORESTES MACHINE MAINTENANCE REPAIRER-TRAFFIC OR SYSTEM DISPATCHER Esophagogastroduodenoscopy E gerson Sharma Esophagogastroduodenoscopy Deepika CARLISLE MACHINE MAINTENANCE REPAIRER-TRAFFIC OR SYSTEM DISPATCHER Ligation of fallopian tube E chandanen Bhavnatopal Ligation of fallopian tube Deepika CARLISLE MACHINE MAINTENANCE REPAIRER-TRAFFIC OR SYSTEM DISPATCHER Lumpectomy of breast Kandi dorantes Lumpectomy of breast BARBER ORESTES MACHINE MAINTENANCE REPAIRER-TRAFFIC OR SYSTEM DISPATCHER Comment on above: left None (qualifier value) FLORA CARLISLE MACHINE MAINTENANCE REPAIRER-TRAFFIC OR SYSTEM DISPATCHER Phacoemulsification of cataract with intraocular lens implantation BARBER CARLISLE MACHINE MAINTENANCE REPAIRER-TRAFFIC OR SYSTEM DISPATCHER Comment on above: both eyes Urine culture Urine culture FARM MACHINERY ENGINE MECHANIC-C Barber Nelsonethan FARM MACHINERY ENGINE MECHANIC Work Phone: Urine culture FARM MACHINERY ENGINE MECHANIC-C Barber Orestes FARM MACHINERY ENGINE MECHANIC Work Phone: Viral antigen assay FARM MACHINERY ENGINE MECHANIC-C Bhavna godfrey Nelsonethan FARM MACHINERY ENGINE MECHANIC Work Phone: Plan of Treatment Date Care Activity Detail Author Start: 10-31-2024 Creatinine measurement Creatinine Le abiodun [facility] Start: 10-31-2024 Potassium measurement Potassium Arun l [facility] Start: 09-20-2024 Echocardiography Echocardiogram [facility] Start: 06-20-2024 Glaucoma screening [facility] Start: 12-19-2023 Hemoglobin A1c measurement [facility] Start: 11-07-2023 End: 11-01-2024 Renal function 2000 panel - Serum or Plasma Renal Function Panel Lab Routine Chronic systolic heart failure (CMS/HCC) Expected: 11/07/2023 (Approximate), Expires: 11/01/2024 [facility] Service Area Work Phone: Comment on above: Expected: 11/07/2023 (Approximate), Expires: 11/01/2024 Start: 2023 End: 2023 Admission to same day surgery center 2023 10:00 AM EST - 2023 1:35 PM [place] [address] [place] [phone] [place] [address] Department of Surgery-Colorectal [place], [place] [id number] Resection Laparoscopy Sigmoid Colon [09752 (CPT )] [facility] [place] Comment on above: Resection Laparoscop y Sigmoid Colon [54838 (CPT )] Start: 2023 End: 2023 Laparoscopy colectomy partial w/anastomosis Resection Laparoscopy Sigmoid Colon Diverticulitis 2023 10:00 AM EST [facility] Start: 2023 Subsequent hospital visit by physician 2023 8:30 AM EST Hospital Encounter [facility] [place] [address] [place] [address] [place] [address] Department [place] [address] [facility] [place] Start: 10-31-2023 End: 10-31-2023 Patient encounter procedure 10/31/2023 11:40 AM EST Office Visit [facility] [place] [address] [facility] [address] [place] [phone] Elida Villareal, MACHINE MAINTENANCE REPAIRER-TRAFFIC OR SYSTEM DISPATCHER [address] [place] [address] [facility] [address] Start: 10-28-2023 End: 10-28-2023 Admission to establishment 10/28/2023 8:45 AM EST Pre-Admission Testing [facility] [address] [place] [id number] [facility] Start: 10-17-2023 End: 10-17-2024 CBC W Auto Differential panel - Blood CBC and Auto Differential Lab Routine Colovaginal fistula Expected: 10/17/2023 (Approximate), Expires: 10/17/2024 [facility] Work Phone: Comment on above: Expected: 10/17/2023 (Approximate), Expires: 10/17/2024 Start: 10-17-2023 End: 10-17-2024 Comprehensive metabolic 2000 panel - Serum or Plasma Comprehensive metabolic panel Lab Routine Colovaginal fistula Expected: 10/17/2023 (Approximate), Expires: 10/17/2024 [facility] Service Area Work Phone: Comment on above: Expected: 10/17/2023 (Approximate), Expires: 10/17/2024 Start: 10-17-2023 End: 10-17-2024 Prealbumin [Mass/volume] in Serum or Plasma Prealbumin Lab Routine Colovaginal fistula Expected: 10/17/2023 (Approximate), Expires: 10/17/2024 [facility] Work Phone: Comment on above: Expected: 10/17/2023 (Approximate), Expires: 10/17/2024 Start: 10-17-2023 End: 10-17-2023 ambulatory [facility] Start: 10-12-2023 End: 10-12-2023 ambulatory [facility] [place] Start: 09-15-2023 [facility] Start: 09-15-2023 Bacteria identified in Blood by Culture Blood Culture [facility] Start: 09-15-2023 Hospital admission, emergency, from emergency room, medical nature [facility] Start: 09-15-2023 End: 09-15-2023 Blood culture [facility] Start: 09-15-2023 Blood culture [facility] Start: 09-08-2023 Patient referral [facility] Work Phone: Start: 08-31-2023 Bacteria identified in Urine by Culture [facility] Start: 08-31-2023 [facility] Start: 03-23-2023 Patient referral [facility] Work Phone: Start: 02-28-2023 [facility] Start: 02-27-2023 [facility] Start: 02-26-2023 [facility] Start: 02-25-2023 Patient discharge [facility] Start: 02-23-2023 Physiotherapy of chest [facility] Start: 02-21-2023 Care planning and pr oblem solving actions [facility] Start: 02-20-2023 End: 02-21-2023 [facility] Start: 02-20-2023 [facility] Start: 02-19-2023 Referral to wetland scientist [facility] Start: 02-18-2023 Vital signs measurements [facility] Start: 02-18-2023 Consultation [facility] Start: 02-18-2023 Speech therapy assessment [facility] Start: 02-18-2023 Following clinical p athway protocol [facility] Start: 02-18-2023 Assessment of risk o f venous thromboembolism [facility] Start: 02-18-2023 Assessment using assessment scale [facility] Start: 02-18-2023 Catheterization of vein [facility] Start: 02-18-2023 Consultation [facility] Start: 02-18-2023 Elevation of head of bed [facility] Start: 02-18-2023 Inhalation therapy procedure [facility] Start: 02-18-2023 Insertion of cathete r into peripheral vein [facility] Start: 02-18-2023 Measuring intake and output [facility] Start: 02-18-2023 Mouth care [facility] Start: 02-18-2023 Notification of physician [facility] Start: 02-18-2023 Oxygen therapy [facility] Start: 02-18-2023 Patient referral to dietitian [facility] Start: 02-18-2023 Providing care accor ding to standard [facility] Start: 02-18-2023 Referral to occupati onal therapist [facility] Start: 02-18-2023 Referral to service [facility] Start: 02-18-2023 Removal of urinary catheter [facility] Start: 02-18-2023 Speech therapy assessment [facility] Start: 02-18-2023 Vital signs measurements [facility] Start: 02-18-2023 End: 02-18-2023 [facility] Start: 02-18-2023 Bacterial nucleic ac id assay [facility] Start: 02-18-2023 Streptococcus pneumo niae antigen assay [facility] Start: 02-18-2023 [facility] Start: 02-18-[address] [facility] Start: 02-18-2023 Admission procedure [facility] Start: 02-18-2023 CT of chest without contrast Chest without Contrast [facility] Start: 02-17-2023 End: 02-17-2023 Blood culture [facility] Start: 02-17-2023 Airway suction technique [facility] Start: 02-17-2023 [facility] Start: 2009 Hepatitis B Vaccines (1 of 3 - Risk 3-dose series) Hepatitis B Vaccines (1 of 3 - Risk 3-dose series) [facility] Start: 2009 [facility] Start: 1999 Zoster Vaccines (1 of 2) Zoste r Vaccines (1 of 2) [facility] Start: 1999 [facility] Start: 1989 Screening for malign ant neoplasm of breast [facility] Start: 1971 DTaP/Tdap/Td Vaccine s (1 - Tdap) DTaP/Tdap/Td Vaccines (1 - Tdap) [facility] Start: 1971 [facility] Start: 1968 Hepatitis A Vaccines (1 of 2 - Risk 2-dose series) Hepatitis A Vaccines (1 of 2 - Risk 2-dose series) [facility] Start: 1968 Urine screening for protein [facility] Start: 1968 [facility] Start: 1959 Diabetic foot examination [facility] Start: 1955 Pneumococcal Vaccine : 65+ Years (1 - PCV) Pneumococcal Vaccine: 65+ Years (1 - PCV) [facility] Start: 1955 [facility] Start: 05-04-1950 COVID-19 Vaccine (#1) COVID-19 Vacci ne (#1) [facility] Start: 05-04-1950 [facility] Start: 1949 Lipid panel [facility] Start: 1949 Medicare Annual Well ness Visit [facility] Start: 1949 Screening for malign ant neoplasm of colon [facility] Bacteria identified in Blood by Culture Blood Culture [facility] Bacteria identified in Sputum by Respiratory culture [facility] End: 09-23-2023 Cardiac catheterization study [facility] Service Area Work Phone: CBC panel - Blood by Automated count [facility] Work Phone: CBC W Auto Different ial panel - Blood [facility] Work Phone: CBC W Auto Different ial panel - Blood [facility] CBC W Auto Different ial panel - Blood [facility] End: 09-28-2023 Cobalamin (Vitamin B12) [Mass/volume] in Serum or Plasma [facility] Work Phone: CT Neck W contrast IV [facility] ECG 12 lead ECG 12 lead ECG Routine Encounter for preadmission testing 11/02/2023 2:[address] [facility] Work Phone: Electrocardiogram, 1 2-lead PRN ACS symptoms [facility] Work Phone: Ferritin [Mass/volum e] in Serum or Plasma [facility] Work Phone: Ferritin [Mass/volum e] in Serum or Plasma [facility] Ferritin [Mass/volum e] in Serum or Plasma [facility] Folate [Mass/volume] in Serum or Plasma [facility] Work Phone: End: 09-28-2023 Folate [Mass/volume] in Serum or Plasma [facility] Work Phone: Glucose [Mass/volume ] in Serum or Plasma [facility] Work Phone: Glucose [Mass/volume ] in Serum or Plasma [facility] Work Phone: End: 09-15-[address] [facility] Work Phone: Iron and Iron bindin g capacity panel - Serum or Plasma [facility] Work Phone: Iron and Iron bindin g capacity panel - Serum or Plasma [facility] Iron and Iron bindin g capacity panel - Serum or Plasma [facility] Lactate dehydrogenas e measurement [facility] Work Phone: Lactate dehydrogenas e measurement [facility] Lactate dehydrogenas e measurement [facility] Legionella pneumophi la Ag [Presence] in Urine [facility] Magnesium [Mass/volu me] in Serum or Plasma [facility] Magnesium [Mass/volu me] in Serum or Plasma [facility] Service Area Work Phone: Magnesium [Mass/volu me] in Serum or Plasma [facility] Work Phone: Microscopic observat ion [Identifier] in Unspecified specimen by Gram stain Gram Stain [facility] Patient Education [facility] Work Phone: Patient referral [facility] Work Phone: Renal function 1999 panel - Serum or Plasma [facility] Work Phone: Renal function 1999 panel - Serum or Plasma [facility] Work Phone: Respiratory Culture Respiratory Culture [facility] Reticulocyte count [facility] Work Phone: Reticulocyte count [facility] Vitamin B12 measurement [facility] Work Phone: Vitamin B12 measurement [facility] Immunizations Immunization Date Immunization Notes Care Provider Fa cili 08-09-2023 influenza virus vaccine, unspecified formulation DR OSEI WOODWARD MD [facility] 08-23-2022 influenza virus vaccine, unspecified formulation DR OSEI WOODWARD MD [facility] 11-28-2021 influenza virus vaccine, unspecified formulation MARIANA RAMOS MD [facility] 11-28-2021 influenza, injectabl e, quadrivalent, preservative free Jonathan Deperro [facility] 11-28-2021 influenza, seasonal, injectable [facility] 09-16-2021 influenza, high dose seasonal, preservative-free; Translations: [Fluad Quadrivalent PF ] LEONA RIOS MD [facility] 08-27-2019 influenza, injectabl e, quadrivalent, preservative free; Translations: [Fluarix PF Quadrivalent ] BARBER CARLISLE MACHINE MAINTENANCE REPAIRER-TRAFFIC OR SYSTEM DISPATCHER [facility] 09-13-2017 influenza virus vaccine, unspecified formulation MARIANA RAMOS MD [facility] 09-19-2014 influenza virus vaccine, unspecified formulation MARIANA RAMOS MD [facility] Payers Date Payer Category Payer Self-pay [id number] 2022 Private Health Insurance [id number] 2022 Unknown [id number] 2022 Unknown [id number] 2022 Medicare [id number] 2022 Medicare [id number] 1949 Unknown [id number] 1949 Unknown [id number] 2.16.840.1.347503.3.579.2.6 1949 Unknown [id number] 2.16.840.1.886107.3.579.2.6 1949 Unknown [id number] 2.16.840.1.988970.3.579.2.6 1949 Unknown [id number] 2.16.840.1.061734.3.579.2.6 27 1949 Unknown [id number] 2.16.840.1.536829.3.579.2.6 27 1949 Unknown [id number] 2.16.840.1.663031.3.579.2.6 27 1949 Unknown [id number] 2.16.840.1.467422.3.579.2.1 244 1949 Unknown [id number] 2.16.840.1.665499.3.579.2.1 245 1949 Unknown [id number] 2.16.840.1.063754.3.579.2.1 245 1949 Unknown [id number] 2.16.840.1.070152.3.579.2.1 245 1949 Unknown [id number] 2.16.840.1.233601.3.579.2.1 245 1949 Unknown [id number] 2.16.840.1.611290.3.579.2.1 245 1949 Unknown [id number] 2.16.840.1.394307.3.579.2.1 245 1949 Unknown [id number] 2.16.840.1.174561.3.579.2.1 245 Private Health Insurance [facility] 18 [id number] Unknown Unknown [id number] [id number] 62 Unknown [id number] 62 Social History Date Type Detail Facility Start: 03-10-2020 End: 09-25-2023 Ex-smoker (finding) [facility] Start: 1950 Sex Assigned At Female [facility] Start: 11-24-2021 End: 09-14-2023 Tobacco smoking status NHIS Unknown if ever smoked [facility] History of tobacco use Current smoker [facility] Work Phone: History of tobacco use Cigarette Smoker [facility] Work Phone: Start: 09-25-2023 Tobacco use and exposure Smoke less tobacco non-user [facility] Work Phone: Start: 09-28-2023 End: 10-20-2023 Alcohol intake Ex-drinker (finding) [facility] Work Phone: Start: 09-25-2023 End: 10-31-2023 History of Social function [facility] Work Phone: Start: 09-25-2023 End: 10-31-2023 Alcohol Use Disorder Identification Test - Consumption [AUDIT-C] [facility] Work Phone: How often to you hav e a drink containing alcohol? Never [facility] Work Phone: How many standard dr inks containing alcohol do you have on a typical day? [facility] Work Phone: Start: 09-25-2023 Tobacco Comment Patient quit y ears ago [facility] Work Phone: Start: 1950 Sex Assigned At [facility] Work Phone: Start: 09-06-2023 End: 10-31-2023 Exposure to SARS-CoV-2 (event) Not sure [facility] NEGATED: Highlighted row - - [facility] Work Phone: Medical Equipment Procedure Code Equipment Code Equipment Origin al Text Equipment Identifier Dates Blood Glucose Te [facility] Strips Start: 07-10-[address]ps Start: 07-10-[address] Stri[facility] Start: 10-01-2021 Thoracic Instrum ented Fusion with Naviga Unknown 07/13/22 Unknown Unknown FDA Start: 07-13-2022 Thoracic Instrum ented Fusion with Naviga Unknown 07/13/22 Unknown Unknown FDA Start: 07-13-2022 Thoracic Instrum ented Fusion with Naviga Unknown 07/13/22 Unknown Unknown FDA Start: 07-13-2022 Thoracic Instrum ented Fusion with Naviga Unknown 07/13/22 Unknown Unknown FDA Start: 07-13-2022 Thoracic Instrum ented Fusion with Naviga Unknown 07/13/22 Unknown Unknown FDA Start: 07-13-2022 Thoracic Instrum ented Fusion with Naviga Unknown 07/13/22 Unknown Unknown FDA Start: 07-13-2022 Thoracic Instrum ented Fusion with Naviga Unknown 07/13/22 Unknown Unknown FDA Start: 07-13-2022 Thoracic Instrum ented Fusion with Naviga Unknown 07/13/22 Unknown Unknown FDA Start: 07-13-2022 Thoracic Instrum ented Fusion with Naviga Unknown 07/13/22 Unknown Unknown FDA Start: 07-13-2022 Thoracic Instrum ented Fusion with Naviga Unknown 07/13/22 Unknown Unknown FDA Start: 07-13-2022 Thoracic Instrum ented Fusion with Naviga Unknown 07/13/22 Unknown Unknown FDA Start: 07-13-2022 Thoracic Instrum ented Fusion with Naviga Unknown 07/13/22 Unknown Unknown FDA Start: 07-13-2022 Thoracic Instrum ented Fusion with Naviga Unknown 07/13/22 Unknown Unknown FDA Start: 07-13-2022 Thoracic Instrum ented Fusion with Naviga Unknown 07/13/22 Unknown Unknown FDA Start: 07-13-2022 Thoracic Instrum ented Fusion with Naviga Unknown 07/13/22 Unknown Unknown FDA Start: 07-13-2022 Thoracic Instrum ented Fusion with Naviga Unknown 07/13/22 Unknown Unknown FDA Start: 07-13-2022 Thoracic Instrum ented Fusion with Naviga Unknown 07/13/22 Unknown Unknown FDA Start: 07-13-2022 Thoracic Instrum ented Fusion with Naviga Unknown 07/13/22 Unknown Unknown FDA Start: 07-13-2022 Thoracic Instrum ented Fusion with Naviga Unknown 07/13/22 Unknown Unknown FDA Start: 07-13-2022 Thoracic Instrum ented Fusion with Naviga Unknown 07/13/22 Unknown Unknown FDA Start: 07-13-2022 Thoracic Instrum ented Fusion with Naviga Unknown 07/13/22 Unknown Unknown FDA Start: 07-13-2022 Thoracic Instrum ented Fusion with Naviga Unknown 07/13/22 Unknown Unknown FDA Start: 07-13-2022 Thoracic Instrum ented Fusion with Naviga Unknown 07/13/22 Unknown Unknown FDA Start: 07-13-2022 Thoracic Instrum ented Fusion with Naviga Unknown 07/13/22 Unknown Unknown FDA Start: 07-13-2022 Thoracic Instrum ented Fusion with Naviga Unknown 07/13/22 Unknown Unknown FDA Start: 07-13-2022 Thoracic Instrum ented Fusion with Naviga Unknown 07/13/22 Unknown Unknown FDA Start: 07-13-2022 Thoracic Instrum ented Fusion with Naviga Unknown 07/13/22 Unknown Unknown FDA Start: 07-13-2022 Thoracic Instrum ented Fusion with Naviga Unknown 07/13/22 Unknown Unknown FDA Start: 07-13-2022 Thoracic Instrum ented Fusion with Naviga Unknown 07/13/22 Unknown Unknown FDA Start: 07-13-2022 Thoracic Instrum ented Fusion with Naviga Unknown 07/13/22 Unknown Unknown FDA Start: 07-13-2022 Thoracic Instrum ented Fusion with Naviga Unknown 07/13/22 Unknown Unknown FDA Start: 07-13-2022 Thoracic Instrum ented Fusion with Naviga Unknown 07/13/22 Unknown Unknown FDA Start: 07-13-2022 Thoracic Instrum ented Fusion with Naviga Unknown 07/13/22 Unknown Unknown FDA Start: 07-13-2022 Thoracic Instrum ented Fusion with Naviga Unknown 07/13/22 Unknown Unknown FDA Start: 07-13-2022 Thoracic Instrum ented Fusion with Naviga Unknown 07/13/22 Unknown Unknown FDA Start: 07-13-2022 Thoracic Instrum ented Fusion with Naviga Unknown 07/13/22 Unknown Unknown FDA Start: 07-13-2022 Thoracic Instrum ented Fusion with Naviga Unknown 07/13/22 Unknown Unknown FDA Start: 07-13-2022 Thoracic Instrum ented Fusion with Naviga Unknown 07/13/22 Unknown Unknown FDA Start: 07-13-2022 Thoracic Instrum ented Fusion with Naviga Unknown 07/13/22 Unknown Unknown FDA Start: 07-13-2022 Thoracic Instrum ented Fusion with Naviga Unknown 07/13/22 Unknown Unknown FDA Start: 07-13-2022 Thoracic Instrum ented Fusion with Naviga Unknown 07/13/22 Unknown Unknown FDA Start: 07-13-2022 Thoracic Instrum ented Fusion with Naviga Unknown 07/13/22 Unknown Unknown FDA Start: 07-13-2022 Thoracic Instrum ented Fusion with Naviga Unknown 07/13/22 Unknown Unknown FDA Start: 07-13-2022 Thoracic Instrum ented Fusion with Naviga Unknown 07/13/22 Unknown Unknown FDA Start: 07-13-2022 Thoracic Instrum ented Fusion with Naviga Unknown 07/13/22 Unknown Unknown FDA Start: 07-13-2022 Thoracic Instrum ented Fusion with Naviga Unknown 07/13/22 Unknown Unknown FDA Start: 07-13-2022 Thoracic Instrum ented Fusion with Naviga Unknown 07/13/22 Unknown Unknown FDA Start: 07-13-2022 Thoracic Instrum ented Fusion with Naviga Unknown 07/13/22 Unknown Unknown FDA Start: 07-13-2022 Thoracic Instrum ented Fusion with Naviga Unknown 07/13/22 Unknown Unknown FDA Start: 07-13-2022 Thoracic Instrum ented Fusion with Naviga Unknown 07/13/22 Unknown Unknown FDA Start: 07-13-2022 Thoracic Instrum ented Fusion with Naviga Unknown 07/13/22 Unknown Unknown FDA Start: 07-13-2022 Thoracic Instrum ented Fusion with Naviga Unknown 07/13/22 Unknown Unknown FDA Start: 07-13-2022 Thoracic Instrum ented Fusion with Naviga Unknown 07/13/22 Unknown Unknown FDA Start: 07-13-2022 Thoracic Instrum ented Fusion with Naviga Unknown 07/13/22 Unknown Unknown FDA Start: 07-13-2022 Thoracic Instrum ented Fusion with Naviga Unknown 07/13/22 Unknown Unknown FDA Start: 07-13-2022 Thoracic Instrum ented Fusion with Naviga Unknown 07/13/22 Unknown Unknown FDA Start: 07-13-2022 Thoracic Instrum ented Fusion with Naviga Unknown 07/13/22 Unknown Unknown FDA Start: 07-13-2022 Thoracic Instrum ented Fusion with Naviga Unknown 07/13/22 Unknown Unknown FDA Start: 07-13-2022 Thoracic Instrum ented Fusion with Naviga Unknown 07/13/22 Unknown Unknown FDA Start: 07-13-2022 Thoracic Instrum ented Fusion with Naviga Unknown 07/13/22 Unknown Unknown FDA Start: 07-13-2022 Thoracic Instrum ented Fusion with Naviga Unknown 07/13/22 Unknown Unknown FDA Start: 07-13-2022 Thoracic Instrum ented Fusion with Naviga Unknown 07/13/22 Unknown Unknown FDA Start: 07-13-2022 Thoracic Instrum ented Fusion with Naviga Unknown 07/13/22 Unknown Unknown FDA Start: 07-13-2022 Thoracic Instrum ented Fusion with Naviga Unknown 07/13/22 Unknown Unknown FDA Start: 07-13-2022 Thoracic Instrum ented Fusion with Naviga Unknown 07/13/22 Unknown Unknown FDA Start: 07-13-2022 Thoracic Instrum ented Fusion with Naviga Unknown 07/13/22 Unknown Unknown FDA Start: 07-13-2022 Thoracic Instrum ented Fusion with Naviga Unknown 07/13/22 Unknown Unknown FDA Start: 07-13-2022 Thoracic Instrum ented Fusion with Naviga Unknown 07/13/22 Unknown Unknown FDA Start: 07-13-2022 Thoracic Instrum ented Fusion with Naviga Unknown 07/13/22 Unknown Unknown FDA Start: 07-13-2022 Thoracic Instrum ented Fusion with Naviga Unknown 07/13/22 Unknown Unknown FDA Start: 07-13-2022 Thoracic Instrum ented Fusion with Naviga Unknown 07/13/22 Unknown Unknown FDA Start: 07-13-2022 Thoracic Instrum ented Fusion with Naviga Unknown 07/13/22 Unknown Unknown FDA Start: 07-13-2022 Thoracic Instrum ented Fusion with Naviga Unknown 07/13/22 Unknown Unknown FDA Start: 07-13-2022 Thoracic Instrum ented Fusion with Naviga Unknown 07/13/22 Unknown Unknown FDA Start: 07-13-2022 Thoracic Instrum ented Fusion with Naviga Unknown 07/13/22 Unknown Unknown FDA Start: 07-13-2022 Thoracic Instrum ented Fusion with Naviga Unknown 07/13/22 Unknown Unknown FDA Start: 07-13-2022 Thoracic Instrum ented Fusion with Naviga Unknown 07/13/22 Unknown Unknown FDA Start: 07-13-2022 Thoracic Instrum ented Fusion with Naviga Unknown 07/13/22 Unknown Unknown FDA Start: 07-13-2022 Thoracic Instrum ented Fusion with Naviga Unknown 07/13/22 Unknown Unknown FDA Start: 07-13-2022 Thoracic Instrum ented Fusion with Naviga Unknown 07/13/22 Unknown Unknown FDA Start: 07-13-2022 Thoracic Instrum ented Fusion with Naviga Unknown 07/13/22 Unknown Unknown FDA Start: 07-13-2022 Thoracic Instrum ented Fusion with Naviga Unknown 07/13/22 Unknown Unknown FDA Start: 07-13-2022 Thoracic Instrum ented Fusion with Naviga Unknown 07/13/22 Unknown Unknown FDA Start: 07-13-2022 Thoracic Instrum ented Fusion with Naviga Unknown 07/13/22 Unknown Unknown FDA Start: 07-13-2022 Thoracic Instrum ented Fusion with Naviga Unknown 07/13/22 Unknown Unknown FDA Start: 07-13-2022 Thoracic Instrum ented Fusion with Naviga Unknown 07/13/22 Unknown Unknown FDA Start: 07-13-2022 Thoracic Instrum ented Fusion with Naviga Unknown 07/13/22 Unknown Unknown FDA Start: 07-13-2022 Thoracic Instrum ented Fusion with Naviga Unknown 07/13/22 Unknown Unknown FDA Start: 07-13-2022 Thoracic Instrum ented Fusion with Naviga Unknown 07/13/22 Unknown Unknown FDA Start: 07-13-2022 Thoracic Instrum ented Fusion with Naviga Unknown 07/13/22 Unknown Unknown FDA Start: 07-13-2022 Thoracic Instrum ented Fusion with Naviga Unknown 07/13/22 Unknown Unknown FDA Start: 07-13-2022 Thoracic Instrum ented Fusion with Naviga Unknown 07/13/22 Unknown Unknown FDA Start: 07-13-2022 Thoracic Instrum ented Fusion with Naviga Unknown 07/13/22 Unknown Unknown FDA Start: 07-13-2022 Thoracic Instrum ented Fusion with Naviga Unknown 07/13/22 Unknown Unknown FDA Start: 07-13-2022 Thoracic Instrum ented Fusion with Naviga Unknown 07/13/22 Unknown Unknown FDA Start: 07-13-2022 Thoracic Instrum ented Fusion with Naviga Unknown 07/13/22 Unknown Unknown FDA Start: 07-13-2022 Thoracic Instrum ented Fusion with Naviga Unknown 07/13/22 Unknown Unknown FDA Start: 07-13-2022 Thoracic Instrum ented Fusion with Naviga Unknown 07/13/22 Unknown Unknown FDA Start: 07-13-2022 Thoracic Instrum ented Fusion with Naviga Unknown 07/13/22 Unknown Unknown FDA Start: 07-13-2022 Thoracic Instrum ented Fusion with Naviga Unknown 07/13/22 Unknown Unknown FDA Start: 07-13-2022 Thoracic Instrum ented Fusion with Naviga Unknown 07/13/22 Unknown Unknown FDA Start: 07-13-2022 Thoracic Instrum ented Fusion with Naviga Unknown 07/13/22 Unknown Unknown FDA Start: 07-13-2022 Thoracic Instrum ented Fusion with Naviga Unknown 07/13/22 Unknown Unknown FDA Start: 07-13-2022 Thoracic Instrum ented Fusion with Naviga Unknown 07/13/22 Unknown Unknown FDA Start: 07-13-2022 Thoracic Instrum ented Fusion with Naviga Unknown 07/13/22 Unknown Unknown FDA Start: 07-13-2022 Thoracic Instrum ented Fusion with Naviga Unknown 07/13/22 Unknown Unknown FDA Start: 07-13-2022 Thoracic Instrum ented Fusion with Naviga Unknown 07/13/22 Unknown Unknown FDA Start: 07-13-2022 Thoracic Instrum ented Fusion with Naviga Unknown 07/13/22 Unknown Unknown FDA Start: 07-13-2022 Thoracic Instrum ented Fusion with Naviga Unknown 07/13/22 Unknown Unknown FDA Start: 07-13-2022 Thoracic Instrum ented Fusion with Naviga Unknown 07/13/22 Unknown Unknown FDA Start: 07-13-2022 Thoracic Instrum ented Fusion with Naviga Unknown 07/13/22 Unknown Unknown FDA Start: 07-13-2022 Thoracic Instrum ented Fusion with Naviga Unknown 07/13/22 Unknown Unknown FDA Start: 07-13-2022 Thoracic Instrum ented Fusion with Naviga Unknown 07/13/22 Unknown Unknown FDA Start: 07-13-2022 Thoracic Instrum ented Fusion with Naviga Unknown 07/13/22 Unknown Unknown FDA Start: 07-13-2022 Thoracic Instrum ented Fusion with Naviga Unknown 07/13/22 Unknown Unknown FDA Start: 07-13-2022 Thoracic Instrum ented Fusion with Naviga Unknown 07/13/22 Unknown Unknown FDA Start: 07-13-2022 Thoracic Instrum ented Fusion with Naviga Unknown 07/13/22 Unknown Unknown FDA Start: 07-13-2022 Thoracic Instrum ented Fusion with Naviga Unknown 07/13/22 Unknown Unknown FDA Start: 07-13-2022 Thoracic Instrum ented Fusion with Naviga Unknown 07/13/22 Unknown Unknown FDA Start: 07-13-2022 Thoracic Instrum ented Fusion with Naviga Unknown 07/13/22 Unknown Unknown FDA Start: 07-13-2022 Thoracic Instrum ented Fusion with Naviga Unknown 07/13/22 Unknown Unknown FDA Start: 07-13-2022 Goals Date Patient Goal Desired Activity /State Personal health goal Personal health goal Personal health goal Functional Status Date Assessment Result Facility 08-15-2023 Functional Status Patient Identi fied Identification band, Verbal [facility] 08-15-2023 Functional Status Maintained [facility] 02-25-2023 Functional status Ambulates;Chair [facility] Work Phone: 07-27-2022 Functional Status Room check performed [facility] 07-26-2022 Functional Status Yes [facility] 07-26-2022 Functional Status Min A 1 [facility] 07-26-2022 Functional Status None [facility] 07-26-2022 Functional Status [facility] 07-26-2022 Functional Status [facility] 07-25-2022 Functional Status Ambulation in Room [facility] 07-25-2022 Functional Status [facility] 07-25-2022 Functional Status [facility] 07[facility]25-2022 Functional Status [facility] 07-25-2022 Functional Status Done [facility] 07-25-2022 Functional Status [facility] 07-25-2022 Functional Status [facility] 07-25-2022 Functional Status [facility] 07-24-2022 Functional Status [facility] 07-24-2022 Functional Status 100 [facility] 07-24-2022 Functional Status [facility] 07-23-2022 [facility] 07-23-2022 [facility] Status [facility] 07-22-2022 Functional Status [facility] 07-22-2022 Functional Status [facility] 07-21-2022 Functional Status [facility] 07-20-2022 Functional Status [facility] 07-20-2022 Functional Status [facility] 07-20-2022 Functional Status [facility] 07-19-2022 Functional Status [facility] 07-19-2022 Functional Status [facility] 07-19-2022 Functional Status [facility] 07-18-2022 Functional Status [facility] 07-18-2022 [facility] Functional Status [facility] 07-16-2022 Functional Status Special Call D evice Unable to use call device [facility] 07-16-2022 Functional Status Vaishali [facility] 07-16-2022 Functional Status [facility] Functional Status [facility] 07-15-2022 Functional Status Va[facility] 07-13-2022 Functional Status Patient Identi fied Identification band [facility] 07-13-2022 Functional Status Sensory Deficits None [facility] 07-11-2022 Functional Status Standard Safet y ID band on, Call device within reach, Bed in low position, Wheels locked, Upper/Half-Length side-rails up, Phone within reach, personal items within reach [facility] NEGATED: Highlighted row Functional performance Functional status health issues are not documented [facility] Work Phone: Mental Status Date Assessment Result Facility 08-15-2023 Mental Status Orientation Orie nted x 4 [facility] 08-09-2023 Cognitive function Level Of Cons ciousness Awake;Alert;Appropriate ;Follows Commands [facility] Work Phone: 02-25-2023 Cognitive function Voice/Name [facility] Work Phone: 07-27-2022 Mental Status Oriented x 4, Follows simple commands [facility] 07-26-2022 Mental Status [facility] 07-26-2022 Mental Status [facility] 07-26-2022 Mental Status [facility] 07-11-2022 Mental Status Orientation Orie nted x 4 [facility] NEGATED: Highlighted row Cognitive function [Interpretation] Cognitive status health issues are not documented Disease [facility] Work Phone: Clinical Notes 09-15-2021 to 10-31-2023 Elida Villareal APRN-SILVINO - 10/31/2023 11:40 AM ESTPatient Wendy Sotelo MD - 10/17/2023 11:40 AM Marbella Blood RN - 09/28/2023 11:30 AM EST Note Date & Type Note Facility 10-31-2023 History of Present illness Narrative Subjective Chief Complaint: 72yo patient here for cardiovascular risk stratification prior to noncardiac surgery. HPI Presented as a transfer from [facility] with left lower quadrant abdominal pain suspicious for colovesical/colovaginal fistula and diverticulitis on CT. A Pelvic MRI was completed confirming sigmoid diverticulitis and associated abscess abutting superior bladder with development of colovesical fistula. ID was consulted to assist with antibiotic management in the interval until surgery. She will discharge on Augmentin bid. Perioperative medicine and Cardiology were also consulted to optimize her for surgery in the setting of her cardiac issues. A CT angio coronary art study was completed and her heart medications were adjusted. She will discharge back to her home facility and follow up in approximately 2 weeks to clinic for surgical planning. PMHx: HTN, Dysphagia, Barnes Catheter, HLD, COPD, Anemia, Vit B12 deficiency, DM II, Left Breast CA, Chronic Venous Insufficiency, RLE DVT, OA, GERD, ?AZ, LUISA, HFrEF PSHx: Lumpectomy, Cholecystectomy, Appendectomy Presents from [facility] with nursing aid. Denies chest pain. Denies palpitations. SOB at rest, worse on exertion. Using 1-2L O2 via NC. Able to ambulate with wheeled walker, presents in wheelchair with barnes catheter. Denies orthopnea/PND. No CPAP. Denies ligthheadedness, dizziness, and syncope. Denies edema. Medication adherent- facility sent list. Decreased appetite. Denies N/V. BPs 100-110/70s HR 90s per facility records. Review of Systems Constitutional: Positive for decreased appetite. HENT: Negative for nosebleeds. Cardiovascular: Positive for dyspnea on exertion. Negative for chest pain, irregular heartbeat, leg swelling, near-syncope, orthopnea, palpitations, paroxysmal nocturnal dyspnea and syncope. Respiratory: Positive for shortness of breath. Negative for sleep disturbances due to breathing. Hematologic/Lymphatic: Negative for bleeding problem. Does not bruise/bleed easily. Musculoskeletal: Positive for muscle weakness. Gastrointestinal: Negative for anorexia, hematochezia, nausea and vomiting. Genitourinary: Positive for hematuria. Neurological: Negative for dizziness and light-headedness. Objective Visit Vitals BP 94/61 (BP Location: Left arm, Patient Position: Sitting) Pulse 84 Ht 1.651 m (5' 5") Wt 73 kg (161 lb) SpO2 97% BMI 26.79 kg/m OB Status Postmenopausal Smoking Status Former BSA 1.83 m Vitals reviewed. Constitutional: Appearance: Chronically ill-appearing. Neck: Vascular: No hepatojugular reflux or JVD. JVD normal. Pulmonary: Effort: Pulmonary effort is normal. Breath sounds: Normal breath sounds. Cardiovascular: Normal rate. Regular rhythm. Murmurs: There is no murmur. No gallop. No click. No rub. Edema: Peripheral edema absent. Abdominal: General: There is no distension. Skin: General: Skin is warm and dry. Genitourinary: Comments: Barnes catheter Neurological: Mental Status: Alert and oriented to person, place and time. Lab Review: Lab Results Component Value Date NA 147 (H) 10/28/2023 K 4.5 10/28/2023 CL 100 10/28/2023 CO2 43 (HH) 10/28/2023 BUN 19 10/28/2023 CREATININE 0.62 10/28/2023 GLUCOSE 101 (H) 10/28/2023 CALCIUM 9.4 10/28/2023 Lab Results Component Value Date WBC 4.0 (L) 10/28/2023 HGB 9.5 (L) 10/28/2023 HCT 32.3 (L) 10/28/2023 MCV 103 (H) 10/28/2023 PLT 107 (L) 10/28/2023 Current Outpatient Medications: acetaminophen (Tylenol) 325 mg tablet, Take 2 tablets (650 mg) by mouth once daily at bedtime. Scheduled, Disp: , Rfl: amoxicillin-pot clavulanate (Augmentin) 875-125 mg tablet, Take 1 tablet (875 mg) by mouth 2 times a day., Disp: 60 tablet, Rfl: 1 aspirin 81 mg EC tablet, Take 1 tablet (81 mg) by mouth once daily., Disp: , Rfl: bisacodyl (Dulcolax) 10 mg suppository, Insert 1 suppository (10 mg) into the rectum once daily as needed for constipation., Disp: , Rfl: calcium carbonate (Tums) 200 mg calcium chewable tablet, Chew 1 tablet (500 mg) 2 times a day. For gas/stomach pains. Give with breakfast and supper., Disp: , Rfl: cranberry fruit 400 mg tablet, Take 1 tablet by mouth once daily. For UTI prevention, Disp: , Rfl: cyanocobalamin (Vitamin B-12) 500 mcg tablet, Take 1 tablet (500 mcg) by mouth once daily at bedtime., Disp: , Rfl: dicyclomine (Bentyl) 20 mg tablet, Take 1 tablet (20 mg) by mouth every 8 hours if needed. For abdominal pain, Disp: , Rfl: estrogens, conjugated, (Premarin) vaginal cream, Insert 1 applicatorful vaginally at bedtime every TUE and , for vaginal bleeding, for 1 month. End date 10/15/23., Disp: , Rfl: ferrous sulfate 325 (65 Fe) MG tablet, Take 1 tablet by mouth 2 times a day. FEOSOL 200 (65 Fe) Mg Per SNF List, Disp: , Rfl: folic acid (Folvite) 1 mg tablet, Take 1 tablet (1 mg) by mouth once daily in the morning., Disp: , Rfl: furosemide (Lasix) 20 mg tablet, Take 1 tablet (20 mg) by mouth once daily in the morning., Disp: , Rfl: gabapentin (Neurontin) 100 mg capsule, Take 1 capsule nightly, by mouth, at bedtime starting 3 days prior to surgery., Disp: 3 capsule, Rfl: 0 gabapentin (Neurontin) 300 mg capsule, , Disp: , Rfl: glimepiride (Amaryl) 1 mg tablet, Take 1 tablet (1 mg) by mouth once daily in the morning., Disp: , Rfl: glucagon HCL (Glucagon, HCl, Emergency Kit) 1 mg recon soln, Inject 1 mg as directed if needed. If blood glucose is less than 70 and non-responsive or NPO, Disp: , Rfl: magnesium hydroxide (Milk of Magnesia) 400 mg/5 mL suspension, Take 30 mL by mouth once daily as needed for constipation., Disp: , Rfl: metoprolol succinate XL (Toprol-XL) 100 mg 24 hr tablet, Take 1 tablet (100 mg) by mouth once daily. Do not crush or chew. Do not start before September 28, 2023., Disp: , Rfl: 0 metroNIDAZOLE (Flagyl) 250 mg tablet, Take 1 tablet by mouth at 6pm, 7pm and 11pm the night prior to surgery., Disp: 3 tablet, Rfl: 0 pantoprazole (ProtoNix) 40 mg EC tablet, Take 1 tablet (40 mg) by mouth once daily. Do not crush, chew, or split., Disp: , Rfl: potassium chloride CR 20 mEq ER tablet, Take 1 tablet (20 mEq) by mouth once daily in the morning. Do not crush or chew., Disp: , Rfl: sacubitriL-valsartan (Entresto) 24-26 mg tablet, Take 0.5 tablets by mouth 2 times a day., Disp: , Rfl: simvastatin (Zocor) 10 mg tablet, Take 1 tablet (10 mg) by mouth once daily at bedtime., Disp: , Rfl: Assessment/Plan Cardiovascular Clearance prior to Noncardiac Surgery SOB at rest, worse on exertion requiring 1-2L O@ via NC continuously. Appears euvolemic and hypotensive on exam today. Most recent EKG 09/19/23 NSR w/PVCs HR 96bpm, notable for LBBB. Most recent TTE 09/2023 LVEF 15-20% w/impaired relaxation pattern of LV diastolic filling. CTA w/FFR 09/23/23 total 34.5. NYHA Class III Stage C HFrEF w/o ICD. Current DNRCC. Not currently optimized on GDMT. Continue Metoprolol Succinate 100mg every day. Per SNF unable to afford ARNI. Transition Entresto 24-26mg 0.5 BID to Losartan 25mg every day. Would recommend avoiding SGLT2i due to acute abscess abutting superior bladder with development of colovesical fistula & chronic antibiotic use. Start Spironolactone 25mg every day and decrease Furosemide 20mg w/Kcl 20 mEq prn edema/weight gain. RFP in 7-10 days. Most recent BNP 09/19/5253 154pg/ml. Revised Cardiac Risk Index (RCRI) 3 points Class IV Risk w/15% 30-day risk of , AZ, or cardiac arrest. Order for BNP. documented in this encounter [facility] Work Phone: 10-31-2023 Instructions FREDY Olivares - 10/31/2023 11:40 AM EST If patient is unable to afford Entresto 24-26mg 0.5 tab twice daily, may transition to Losartan 25mg daily. Start Spironolactone 25mg daily. Decrease Furosemide 20mg w/Potassium Chloride 20 mEq daily as needed for swelling and/or 2-3lb weight gain overnight or 5lb weight gain in 1 week. Please have labs drawn in 7-10 days after you start medication change. We will call you with any abnormal results. Continue all other medications as ordered. Call [phone] to schedule follow up with Dr. Rowell ([place]). documented in this encounter [facility] Work Phone: 10-17-2023 History of Present illness Narrative Colorectal Surgery Established Patient Visit History Of Present Illness Poli Ramirez is a 72 y.o. female who presents to clinic today for surgical planning following recent inpatient stay. Pelvic MRI was completed confirming sigmoid diverticulitis and associated abscess abutting superior bladder with development of colovesical fistula. Tentatively scheduled for OR 11/03/23; Laparoscopic possible open sigmoid colectomy and colovesical fistula takedown. She is here today, states she is feeling pretty good the last few days. She is walking up to 60 feet with PT at her facility. She is eating and drinking. Eating everything she wants and doing Ensure. She urinating without difficulty. BM's regularly. She is on O2. She has DNR-comfort care orders in her chart here with her today. We discussed options for holding this. Discussed continuing catheter until surgery. Past Medical History She has a past medical history of Anemia, Breast cancer ([facility]) (2011), Colovesical fistula, COPD (chronic obstructive pulmonary disease) ([facility]), Coronary atherosclerosis, Diabetes mellitus ([facility]), Diverticulosis, GERD (gastroesophageal reflux disease), Hiatal hernia, Hypertension, Oxygen dependent, Personal history of irradiation, and Rheumatoid arthritis ([facility]). Surgical History She has a past surgical history that includes Cholecystectomy (04/22/2014); Cataract extraction (04/22/2014); CT angio coronary art with heartflow if score >30% (09/26/2023); Breast lumpectomy; Tubal ligation; Knee arthroscopy w/ laser; Appendectomy; Cardiac catheterization; Colonoscopy; and Esophagogastroduodenoscopy. Social History She reports that she has quit smoking. Her smoking use included cigarettes. She has never used smokeless tobacco. She reports that she does not currently use alcohol. She reports that she does not currently use drugs. Family History Family History Problem Relation Name Age of Onset Breast cancer Sister Allergies Flexeril [cyclobenzaprine], Zanaflex [tizanidine], and Oxycodone-acetaminophen Home Medications Prior to Admission medications Medication Sig Start Date End Date Taking? Authorizing Provider acetaminophen (Tylenol) 325 mg tablet Take 2 tablets (650 mg) by mouth once daily at bedtime. Scheduled Historical Provider, amoxicillin-pot clavulanate (Augmentin) 875-125 mg tablet Take 1 tablet (875 mg) by mouth 2 times a day. 09/27/23 Nanyc Treviño APRN-TRAFFIC OR SYSTEM DISPATCHER bisacodyl (Dulcolax) 10 mg suppository Insert 1 suppository (10 mg) into the rectum once daily as needed for constipation. Historical Provider, calcium carbonate (Tums) 200 mg calcium chewable tablet Chew 1 tablet (500 mg) 2 times a day. For gas/stomach pains. Give with breakfast and supper. Historical Provider, cranberry fruit 400 mg tablet Take 1 tablet by mouth once daily. For UTI prevention Historical ProviderMD cyanocobalamin (Vitamin B-12) 1,000 mcg tablet Take 1 tablet (1,000 mcg) by mouth once daily in the morning. Historical Provider, cyanocobalamin (Vitamin B-12) 500 mcg tablet Take 1 tablet (500 mcg) by mouth once daily at bedtime. Historical Provider, dicyclomine (Bentyl) 20 mg tablet Take 1 tablet (20 mg) by mouth every 8 hours if needed. For abdominal pain Historical Provider, estrogens, conjugated, (Premarin) vaginal cream Insert 1 applicatorful vaginally at bedtime every MON and THURS, for vaginal bleeding, for 1 month. End date 10/15/23. 10/15/23 Historical Provider, ferrous sulfate 325 (65 Fe) MG tablet Take 1 tablet (65 mg of iron) by mouth 2 times a day. FEOSOL 200 (65 Fe) Mg Per SNF List Historical Provider, folic acid (Folvite) 1 mg tablet Take 1 tablet (1 mg) by mouth once daily in the morning. Historical Provider, furosemide (Lasix) 20 mg tablet Take 1 tablet (20 mg) by mouth once daily in the morning. Historical Provider, gabapentin (Neurontin) 100 mg capsule Take 1 capsule (100 mg) by mouth 3 times a day. Historical Provider, glimepiride (Amaryl) 1 mg tablet Take 1 tablet (1 mg) by mouth once daily in the morning. Historical Provider, glucagon HCL (Glucagon, HCl, Emergency Kit) 1 mg recon soln Inject 1 mg as directed if needed. If blood glucose is less than 70 and non-responsive or NPO Historical ProviderMD L. acidophilus-L. rhamnosus (Probiotic) 15 billion cell capsule Take 1 capsule by mouth once daily. For 7 days ending 09/20/23. (RENEWLIFE Ultimate Jie Probiotic 15 BILLION per SNF list) 09/27/23 Nancy Treviño, MACHINE MAINTENANCE REPAIRER-TRAFFIC OR SYSTEM DISPATCHER magnesium hydroxide (Milk of Magnesia) 400 mg/5 mL suspension Take 30 mL by mouth once daily as needed for constipation. Historical Provider, metoprolol succinate XL (Toprol-XL) 100 mg 24 hr tablet Take 1 tablet (100 mg) by mouth once daily. Do not crush or chew. Do not start before September 28, 2023. 09/28/23 Nancy Treviño APRN-SILVINO ondansetron (Zofran) 4 mg tablet Take 1 tablet (4 mg) by mouth every 8 hours if needed for nausea. Historical Provider, pantoprazole (ProtoNix) 40 mg EC tablet Take 1 tablet (40 mg) by mouth once daily. Do not crush, chew, or split. Historical Provider, phenazopyridine (Pyridium) 100 mg tablet Take 1 tablet (100 mg) by mouth every 8 hours if needed. Historical Provider, potassium chloride CR 20 mEq ER tablet Take 1 tablet (20 mEq) by mouth once daily in the morning. Do not crush or chew. Historical Provider, sacubitriL-valsartan (Entresto) 24-26 mg tablet Take 0.5 tablets by mouth 2 times a day. 09/27/23 FREDY Holcomb sennosides-docusate sodium (Zarina-Colace) 8.6-50 mg tablet Take 1 tablet by mouth once daily as needed for constipation. Historical Provider, simethicone (Mylicon) 80 mg chewable tablet Chew 1 tablet (80 mg) every 6 hours if needed for flatulence. Historical Provider, simvastatin (Zocor) 10 mg tablet Take 1 tablet (10 mg) by mouth once daily at bedtime. Historical Provider, Review of Systems Gastrointestinal: Negative for abdominal distention, abdominal pain, anal bleeding, blood in stool, constipation, diarrhea, nausea, rectal pain and vomiting. All other systems reviewed and are negative. Imaging: CT angio coronary art with heartflow if score >30% Result Date: 09/28/2023 Interpreted By: Yair Pham and Akula Navya STUDY: CT ANGIO CORONARY ART WITH HEARTFLOW IF SCORE >30%; 09/26/2023 1:38 pm INDICATION: Signs/Symptoms:Reduced EF; Pre Op optimization. COMPARISON: None. ACCESSION NUMBER(S): [id number] ORDERING CLINICIAN: KANG JULIAN TECHNIQUE: Using multi-detector CT technology, axial, sequential imaging with prospective gating was performed of the chest following the intravenous administration of contrast material. A low-osmolar contrast agent was used (90 mL of Omnipaque 350). The patient was premedicated with 100 p.o. and 20 mg i.v metoprolol and 0.8 mg sublingual nitroglycerin for heart rate control and coronary dilation, respectively. For optimization of anatomic evaluation, multiplanar reconstruction, maximum intensity projections, and advanced 3-D off-line postprocessing were performed on a dedicated stand-alone workstation under the direct supervision of the interpreting physician. CT Dose-Length Product (DLP): 1552 mGy/cm CT Dose Reduction Employed: Yes (Prospective triggering, iterative reconstruction) FINDINGS: POTENTIAL STUDY LIMITATIONS: Step-artifact. CORONARY ARTERIES: CORONARY ARTERY CALCIUM SCORE: The score and distribution of calcium in the coronary arteries is as follows: LM 0, LAD 31.5, LCx 0, RCA 3.0, Total 34.5 CORONARY ANATOMY: There is normal origin of the coronary arteries. LEFT MAIN CORONARY ARTERY: The left main is normal sized vessel that bifurcates into the LAD and circumflex. There is no significant atherosclerotic change or stenotic disease. LEFT ANTERIOR DESCENDING ARTERY: The LAD is a large size vessel that wraps around the apex. It gives rise to 3 acute diagonal branches. There are small/focal calcified atherosclerotic plaques of the proximal to mid LAD with minimal stenosis (<25%). LEFT CIRCUMFLEX ARTERY: The LCX is a large sized vessel, which is non-dominant. It gives rise to 1 obtuse marginal branches. There is no significant atherosclerotic change or stenotic disease. RIGHT CORONARY ARTERY: The RCA is a large sized vessel, which is dominant. The RCA is best assessed on 40% phase. It gives rise to a conus branch, cheri branch, and 2 acute marginal branches. In its distal segment it bifurcates into the PDA and PV branch. The RCA has no significant atherosclerotic change or stenotic disease. There is some step artifact mid RCA. CARDIAC CHAMBERS: The cardiac chambers demonstrate normal atrioventricular and ventriculoarterial concordance, and systemic and pulmonary venous return. LEFT ATRIUM: Normal size (28.08-cm2) RIGHT ATRIUM: Normal size (21.75-cm2) INTERATRIAL SEPTUM: Intact. LEFT VENTRICLE: Dilated (6.4-cm) RIGHT VENTRICLE: Normal size (3.8-cm) AORTIC VALVE: The aortic valve is trileaflet in morphology. No calcifications. MITRAL VALVE: No thickening/calcification. THORACIC AORTA: The visualized thoracic aorta is normal in course, caliber, and contour. There is no acute aortic pathology, such as dissection, intramural hematoma, or contained rupture. The aortic arch is not included on this examination. PERICARDIUM: There is no pericardial effusion of thickening. CHEST: The chest wall is normal. No significant lymphadenopathy or mass is seen in limited images of the mediastinum. Limited imaging through the lungs reveals bibasilar atelectasis. Left small pleural effusion. UPPER ABDOMEN: Limited imaging through the upper abdomen reveals no abnormalities of the visualized organs. Moderate to severe degenerative changes of the thoracic spine. 1. Minor coronary artery disease. 2. The proximal-mid LAD has focal regions of calcified plaque with minimal stenosis (<25%). 3. The LM, LCx and RCA have no significant atherosclerotic change or stenotic disease. 4. Right dominant coronary artery system. 5. Total coronary calcium score 35. 6. Left ventricular dilatation. 7. Small left pleural effusion. MACRO: Classification Maximal Stenosis Interpretation CAD-RADS 0: 0% No coronary disease CAD-RADS 1: 1 - 24%* Minimal non-obstructive CAD-RADS 2: 25 - 49% Mild non-obstructive CAD-RADS 3: 50 - 69% Moderate stenosis CAD-RADS 4 A: A: 70 - 99% Severe Stenosis CAD-RADS 4B: Left Main >50% or 3-vessel ? 70% CAD-RADS 5: 100% Total coronary occlusion Further Cardiac Investigation CAD-RADS (0-2): No further workup CAD-RADS (3): Consider functional assessment CAD-RADS (4A): Consider ICA or functional assessment CAD-RADS (4B): ICA recommended CAD-RADS (5): Consider ICA and/or viability assessment Signed by: Yair Pham 09/28/2023 11:26 AM Dictation workstation: [id number] Electrocardiogram, 12-lead PRN ACS symptoms Result Date: 09/27/2023 Sinus tachycardia with occasional Premature ventricular complexes Left bundle branch block Abnormal ECG When compared with ECG of 19-SEP-2023 12:28, (unconfirmed) Premature ventricular complexes are now Present Confirmed by Simon Piedra ([id number]) on 09/27/2023 12:27:49 PM ECG 12 Lead Result Date: 09/26/2023 Sinus rhythm with occasional Premature ventricular complexes Left axis deviation Left bundle branch block Abnormal ECG No previous ECGs available Confirmed by Harrison Piedra ([id number]) on 09/26/2023 9:00:49 AM MR pelvis w and wo IV contrast Result Date: 09/25/2023 Interpreted By: Clint Thurman and Jonnie Paz STUDY: MR PELVIS W AND WO IV CONTRAST; 09/21/2023 9:11 am INDICATION: Signs/Symptoms:fistulae. Per EMR: Patient is a 72-year-old female with history of type 2 diabetes, chronic left lower quadrant abdominal pain with new foul-smelling discharge suspicious for colovesicular and/or colovaginal fistula. Physical examination suspicious for fistula. Outside hospital CT demonstrating chronic inflammatory changes throughout abdomen, bladder wall thickening, can not exclude colovesical colovaginal fistula. COMPARISON: None ACCESSION NUMBER(S): [id number] ORDERING CLINICIAN: KANG JULIAN TECHNIQUE: Multiplanar MRI of the pelvis was obtained including the following sequences: T2 weighted SSFSE, T2 FSE with and without fat saturation, pre and post gadolinium dynamic T1 GRE. 15 ml of Gadolinium contrast agent Dotarem were administered intravenously without complication. FINDINGS: BOWEL: Dense T2 hypointense signal about the sigmoid colon in the left lower quadrant (series 6, image 43) with likely representing multiple adhesions of the sigmoid colon to the bladder, uterus, and left ovary. Sigmoid diverticulosis with hyperemia about the sigmoid in the left lower quadrant on arterial phase images (series 14, image 51) compatible with inflammatory process. Heterogenous air-fluid peripherally enhancing collection interposed between the sigmoid colon and the bladder wall measures 3.0 x 2.7 x 2.6 cm (series 5, image 24; series 4, image 12). A hypoenhancing tract extends from this lesion through the superior bladder. The visualized portions of the anal canal appears normal without evidence of fistula or mass. BLADDER: Diffuse thickening of the bladder wall with urothelial/mucosal enhancement. There are layering debris noted and tiny nondependent foci of gas in the bladder lumen. The bladder lumen is decompressed with Barnes catheter and balloon in place, distinct from above-described finding. REPRODUCTIVE ORGANS: The uterus is anteverted. Multiple T2 hypointense lesions, the largest of which measuring 1.7 x 1.4 cm (series 5, image 13) compatible with fibroids. T2 hypointense lesion in the left adnexa measuring 2.1 x 1.8 x 1.6 cm (series 5, image 24; series 6, image 39) likely representing pedunculated fibroid. Adjacent tubular structure with T1 hyperintense material is noted in the left adnexa. The vagina and vulva are unremarkable. PELVIC LYMPH NODES: Scattered prominent, nonenlarged nodes which are nonspecific, possibly reactive in nature. PERITONEUM/RETROPERITONEUM: No free fluid. BONES AND PELVIC WALL: No focal lesions are noted in the bone. Included pelvic wall soft tissues are within normal limits. 1. Complicated sigmoid diverticulitis with associated abscess abutting the superior bladder and development of colovesicular fistula. 2. 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 3. Multiple fibroids including a mass projected to the left adnexa favored to be pedunculated fibroid versus less likely fibrous ovarian mass such as fibroma and fibrothecoma. 4. Tubular structure in the left adnexa with intrinsic T1 hyperintense signal suspicious for small volume hematosalpinx. I personally reviewed the images/study and I agree with the findings as stated by Jackson Cristina MD. This study was interpreted at [facility], [place], [place]. MACRO: None Signed by: Clint Woods 09/25/2023 3:47 PM Dictation workstation: [id number] Transthoracic Echo (TTE) Complete Result Date: 09/20/2023 [facility], [address] [place], [place] [id number] and TRANSTHORACIC ECHOCARDIOGRAM REPORT Patient Name: POLI RAMIREZ Adilene Physician: [id number] Kandi Roberts MD Study Date: 09/20/2023 Ordering Provider: [id number] VARSHA SOTELO MRN/PID: [id number] Fellow: Nurse: Mare Higgins Date of /Age: 12 1950 / 72 Recruitment Director: Muna Clinton RDCS years Gender: F Additional Staff: Height: 165.10 cm Admit Date: 09/15/2023 Weight: 74.84 kg Admission Status: Inpatient - Routine BSA: 1.82 m2 Department Location: [facility] Non Invasive Blood Pressure: 126 /75 mmHg Study Type: TRANSTHORACIC ECHO (TTE) COMPLETE Diagnosis/ICD: Encounter for preprocedural cardiovascular examination-Z01.810 CPT Code: Echo Complete w Full Doppler-[id number] Patient History: Pertinent History: Breast cancer, HTN, COPD, DM2, anemia. Study Detail: The following Echo studies were performed: 2D, M-Mode, Doppler and color flow. Technically challenging study due to patient lying in supine position. Definity used as a contrast agent for endocardial border definition. Total contrast used for this procedure was 2 mL via IV push. PHYSICIAN INTERPRETATION: Left Ventricle: The left ventricular systolic function is severely decreased, with an estimated ejection fraction of 15-20%. There is global hypokinesis of the left ventricle with minor regional variations. The left ventricular cavity size is mildly dilated. Spectral Doppler shows an impaired relaxation pattern of left ventricular diastolic filling. Echocontrast was utilized and excluded LV apical thrombus. Left Atrium: The left atrium is mildly dilated. Right Ventricle: The right ventricle is normal in size. There is normal right ventricular global systolic function. Right Atrium: The right atrium was not well visualized. Aortic Valve: The aortic valve is trileaflet. There is mild aortic valve cusp calcification. There is no evidence of aortic valve regurgitation. The peak instantaneous gradient of the aortic valve is 15.7 mmHg. The mean gradient of the aortic valve is 9.0 mmHg. Mitral Valve: The mitral valve is normal in structure. There is mild to moderate mitral annular calcification. There is trace mitral valve regurgitation. Tricuspid Valve: The tricuspid valve is structurally normal. There is trace tricuspid regurgitation. The right ventricular systolic pressure is unable to be estimated. Pulmonic Valve: The pulmonic valve is structurally normal. There is physiologic pulmonic valve regurgitation. Pericardium: There is a trivial pericardial effusion. Aorta: The aortic root is normal. The aortic root is at the upper limits of normal size. Systemic Veins: The inferior vena cava appears to be of normal size. There is IVC inspiratory collapse greater than 50%. In comparison to the previous echocardiogram(s): There are no prior studies on this patient for comparison purposes. No prior echocardiogram available for comparison. CONCLUSIONS: 1. Left ventricular systolic function is severely decreased with a 15-20% estimated ejection fraction. 2. Echocontrast was utilized and excluded LV apical thrombus. 3. Spectral Doppler shows an impaired relaxation pattern of left ventricular diastolic filling. 4. Primary service notified of results at the time of reporting. 5. No prior echocardiogram available for comparison. 6. There is global hypokinesis of the left ventricle with minor regional variations. QUANTITATIVE DATA SUMMARY: 2D MEASUREMENTS: Normal Ranges: Ao Root d: 3.50 cm (2.0-3.7cm) LAs: 4.00 cm (2.7-4.0cm) IVSd: 1.00 cm (0.6-1.1cm) LVPWd: 1.10 cm (0.6-1.1cm) LVIDd: 5.70 cm (3.9-5.9cm) LVIDs: 5.00 cm LV Mass Index: 132.4 g/m2 LV % FS 12.3 % LA VOLUME: Normal Ranges: LA Vol A4C: 65.4 ml (22+/-6mL/m2) LA Vol A2C: 67.9 ml LA Vol BP: 67.3 ml LA Vol Index A4C: 35.9ml/m2 LA Vol Index A2C: 37.3 ml/m2 LA Vol Index BP: 36.9 ml/m2 LA Area A4C: 20.5 cm2 LA Area A2C: 21.1 cm2 LA Major Stanley A4C: 5.5 cm LA Major Stanley A2C: 5.6 cm AORTA MEASUREMENTS: Normal Ranges: Ao Sinus, d: 3.60 cm (2.1-3.5cm) Asc Ao, d: 3.40 cm (2.1-3.4cm) LV SYSTOLIC FUNCTION BY 2D PLANIMETRY (MOD): Normal Ranges: EF-A4C View: 19.0 % (>=55%) LV DIASTOLIC FUNCTION: Normal Ranges: MV Peak E: 1.01 m/s (0.7-1.2 m/s) MV Peak A: 1.65 m/s (0.42-0.7 m/s) E/A Ratio: 0.61 (1.0-2.2) MV e' 0.06 m/s (>8.0) MV lateral e' 0.06 m/s E/e' Ratio: 16.03 (<8.0) MV DT: 66 msec (150-240 msec) MITRAL VALVE: Normal Ranges: MV DT: 66 msec (150-240msec) AORTIC VALVE: Normal Ranges: AoV Vmax: 1.98 m/s (<=1.7m/s) AoV Peak P.7 mmHg (<20mmHg) AoV Mean P.0 mmHg (1.7-11.5mmHg) LVOT Max Abiodun: 1.41 m/s (<=1.1m/s) AoV VTI: 35.40 cm (18-25cm) LVOT VTI: 28.00 cm LVOT Diameter: 1.80 cm (1.8-2.4cm) AoV Area, VTI: 2.01 cm2 (2.5-5.5cm2) AoV Area,Vmax: 1.81 cm2 (2.5-4.5cm2) AoV Dimensionless Index: 0.79 RIGHT VENTRICLE: RV Basal 4.10 cm TAPSE: 19.9 mm RV s' 0.14 m/s TRICUSPID VALVE/RVSP: Normal Ranges: IVC Diam: 1.20 cm PULMONIC VALVE: Normal Ranges: PV Accel Time: 81 msec (>120ms) PV Max Abiodun: 1.0 m/s (0.6-0.9m/s) PV Max P.0 mmHg [id number] Kandi Roberts MD Electronically signed on 09/20/2023 at 4:04:20 PM Final US abdomen limited liver Result Date: 09/20/2023 Interpreted By: Steven Chacon and Ebai Jerky STUDY: US ABDOMEN LIMITED LIVER; [facility] US ABDOMINAL/PELVIC DUPLEX COMPLETE; 09/19/2023 6:30 pm INDICATION: 72 y/o F with Signs/Symptoms:Throbocytopenia workup; Signs/Symptoms:per doctor request. COMPARISON: None. ACCESSION NUMBER(S): [id number]; [id number] ORDERING CLINICIAN: KANG JULIAN TECHNIQUE: Multiple images of the right upper quadrant were obtained. Gates scale, color Doppler and spectral Doppler waveform analysis was performed. This examination was interpreted at [facility]. FINDINGS: The liver measures 22.6 cm and is grossly unremarkable and free of any focal lesions. The liver is echogenic and coarsened echotexture. GALLBLADDER: Surgically absent. BILIARY SYSTEM: No evidence of intra or extrahepatic biliary dilatation is identified; the common bile duct measures 7.4 mm. DOPPLER EVALUATION: HEPATIC ARTERIES: Hepatic artery and its right and left branches RI's are estimated at 0.75, 0.75 and 0.74, respectively. PORTAL VEIN: Portal vein is patent and measures 1.1 cm. There is normal respiratory variation. Portal vein velocities are calculated as follows: main portal vein 35.7 cm/sec, antegrade flow; left portal vein branch 12.3 cm/sec, antegrade flow; right portal vein anterior branch 19.6 cm/sec, antegrade flow; right portal vein posterior branch 26.9 cm/sec, antegrade flow. The splenic vein is also patent. HEPATIC VEIN: The right, middle and left hepatic veins are patent and demonstrate triphasic antegrade flow. IVC appears also patent. PANCREAS: The visualized pancreas is unremarkable in appearance. There is a 1.6 x 1.5 x 2.2 cm anechoic cystic structure adjacent to the distal pancreatitis tail. RIGHT KIDNEY: The right kidney measures 10.7 cm in length. No hydronephrosis or renal calculi are seen. SPLEEN: The spleen measures 13.9 cm and is grossly unremarkable. PERITONEUM AND RETROPERITONEUM: Incidental note is made of a left pleural effusion. Unremarkable ultrasound of the abdomen. 1. Hepatomegaly with echogenic and coarse echotexture, correlate with chronic liver disease. 2. There is an incompletely evaluated 1.6 cm anechoic cystic structure adjacent to the pancreatic tail. Differentials include pseudocysts or cystic mass. Recommend further evaluation with MRI/MRCP of the pancreas. 3. Prominent CBD, likely secondary to cholecystectomy. 4. Mild splenomegaly. 5. Unremarkable Doppler ultrasound. I personally reviewed the images/study and I agree with the findings as stated. This study was interpreted at [facility], [place], [place]. MACRO: None Signed by: Steven Chacon 09/20/2023 5:44 AM Dictation workstation: [id number] Vascular US abdomen/pelvis duplex complete Result Date: 09/20/2023 Interpreted By: Steven Chacon, and Kim Sheikh STUDY: US ABDOMEN LIMITED LIVER; VASC US ABDOMINAL/PELVIC DUPLEX COMPLETE; 09/19/2023 6:30 pm INDICATION: 72 y/o F with Signs/Symptoms:Throbocytopenia workup; Signs/Symptoms:per doctor request. COMPARISON: None. ACCESSION NUMBER(S): [id number]; [id number] ORDERING CLINICIAN: KANG JULIAN TECHNIQUE: Multiple images of the right upper quadrant were obtained. Gates scale, color Doppler and spectral Doppler waveform analysis was performed. This examination was interpreted at [facility], [facility]. FINDINGS: The liver measures 22.6 cm and is grossly unremarkable and free of any focal lesions. The liver is echogenic and coarsened echotexture. GALLBLADDER: Surgically absent. BILIARY SYSTEM: No evidence of intra or extrahepatic biliary dilatation is identified; the common bile duct measures 7.4 mm. DOPPLER EVALUATION: HEPATIC ARTERIES: Hepatic artery and its right and left branches RI's are estimated at 0.75, 0.75 and 0.74, respectively. PORTAL VEIN: Portal vein is patent and measures 1.1 cm. There is normal respiratory variation. Portal vein velocities are calculated as follows: main portal vein 35.7 cm/sec, antegrade flow; left portal vein branch 12.3 cm/sec, antegrade flow; right portal vein anterior branch 19.6 cm/sec, antegrade flow; right portal vein posterior branch 26.9 cm/sec, antegrade flow. The splenic vein is also patent. HEPATIC VEIN: The right, middle and left hepatic veins are patent and demonstrate triphasic antegrade flow. IVC appears also patent. PANCREAS: The visualized pancreas is unremarkable in appearance. There is a 1.6 x 1.5 x 2.2 cm anechoic cystic structure adjacent to the distal pancreatitis tail. RIGHT KIDNEY: The right kidney measures 10.7 cm in length. No hydronephrosis or renal calculi are seen. SPLEEN: The spleen measures 13.9 cm and is grossly unremarkable. PERITONEUM AND RETROPERITONEUM: Incidental note is made of a left pleural effusion. Unremarkable ultrasound of the abdomen. 1. Hepatomegaly with echogenic and coarse echotexture, correlate with chronic liver disease. 2. There is an incompletely evaluated 1.6 cm anechoic cystic structure adjacent to the pancreatic tail. Differentials include pseudocysts or cystic mass. Recommend further evaluation with MRI/MRCP of the pancreas. 3. Prominent CBD, likely secondary to cholecystectomy. 4. Mild splenomegaly. 5. Unremarkable Doppler ultrasound. I personally reviewed the images/study and I agree with the findings as stated. This study was interpreted at [place], [place]. MACRO: None Signed by: Steven Chacon 09/20/2023 5:44 AM Dictation workstation: [id number] CT head wo IV contrast Result Date: 09/19/2023 Interpreted By: Susy Canales, STUDY: CT HEAD WO IV CONTRAST; 09/19/2023 3:43 pm INDICATION: Signs/Symptoms:R/o subdural hematoma, thrombocytopenia workup (fall several weeks ago). COMPARISON: None. ACCESSION NUMBER(S): [id number] ORDERING CLINICIAN: KANG JULIAN TECHNIQUE: Axial CT images of the head were obtained without intravenous contrast administration. FINDINGS: There is mild brain parenchymal volume loss. There are patchy and confluent nonspecific white matter changes within the cerebral hemispheres bilaterally as well as additional scattered nonspecific hypodensities within the subinsular regions, basal ganglia, internal capsules, and thalami bilaterally as well as suspected overlying the brainstem suggesting incidental prominent perivascular spaces and/or scattered lacunar infarctions. No hyperdense acute intracranial hemorrhage is noted. There is no midline shift. The visualized paranasal sinuses and mastoid air cells are clear. No acute fracture is noted. There is mild brain parenchymal volume loss. There are patchy and confluent nonspecific white matter changes within the cerebral hemispheres bilaterally as well as additional scattered nonspecific hypodensities within the subinsular regions, basal ganglia, internal capsules, and thalami bilaterally as well as suspected overlying the brainstem suggesting incidental prominent perivascular spaces and/or scattered lacunar infarctions. MACRO: None. Signed by: Susy Canales 09/19/2023 4:06 PM Dictation workstation: [id number] XR chest 1 view Result Date: 09/19/2023 Interpreted By: Delfin Menezes and [place] Lesley STUDY: XR CHEST 1 VIEW; 09/19/2023 8:46 am INDICATION: Signs/Symptoms:copd on oxygen. COMPARISON: Outside hospital CT chest 03/20/2014 ACCESSION NUMBER(S): [id number] ORDERING CLINICIAN: RIMA APPLE FINDINGS: Single AP upright portable radiograph of the chest was provided. CARDIOMEDIASTINAL SILHOUETTE: The cardiomediastinal silhouette is normal in size and configuration. LUNGS: Mildly low lung volumes with bronchovascular crowding. Bandlike atelectasis of the right lower lung with bibasilar subsegmental atelectasis. An ovoid 22 x 18 mm opacity right lower lobe overlies the right 4th rib anteriorly. No sizable effusion or pneumothorax. No focal consolidation. ABDOMEN: No remarkable upper abdominal findings. BONES: No acute osseous abnormalities. Posterior cervical spine fusion is partially visualized. Moderate degenerative changes of the thoracic spine. 1. Linear atelectasis within the lung bases greater within the right lower lobe than the left. 2. Ovoid 22 x 18 mm opacity right lower lobe overlying the right 4th rib anteriorly 3. CT examination of the chest is recommended to correlate. I personally reviewed the image(s)/study and resident interpretation as stated by Dr. Veronica Brown MD. I agree with the findings as stated. This study was interpreted at [facility], [place], [place]. MACRO: None Signed by: Delfin Menezes 09/19/2023 9:36 AM Dictation workstation: [id number] Labs: Lab Results Component Value Date BILIDIR 0.1 09/18/2023 AST 10 09/18/2023 ALT 7 09/18/2023 ALKPHOS 47 09/18/2023 PROT 5.7 (L) 09/18/2023 ALBUMIN 2.9 (L) 09/28/2023 CEA <0.5 09/23/2023 Physical Exam Vitals reviewed. Constitutional: Appearance: She is ill-appearing. HENT: Head: Normocephalic. Eyes: Extraocular Movements: Extraocular movements intact. Cardiovascular: Rate and Rhythm: Normal rate. Pulmonary: Effort: Pulmonary effort is normal. Abdominal: General: There is no distension. Palpations: Abdomen is soft. There is no mass. Tenderness: There is no abdominal tenderness. Hernia: No hernia is present. Genitourinary: Rectum: Normal. Musculoskeletal: General: Normal range of motion. Cervical back: Normal range of motion. Comments: Weak and sitting in wheelchair Skin: General: Skin is warm and dry. Neurological: General: No focal deficit present. Mental Status: She is alert. Psychiatric: Mood and Affect: Mood normal. Last Recorded Vitals Blood pressure 94/54, pulse 74, temperature 36.5 C (97.7 F), height 1.651 m (5' 5"), weight 73.3 kg (161 lb 8 oz). 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 Today we discussed need for surgical intervention. At minimum diverting colostomy but ideally sigmoid resection with end colostomy given her extensive comorbidites. We discussed the diagnosis, anatomy, pathophysiology, indications for surgery, treatment goals and alternatives, risks and benefits in detail. He presents for elective resection. We discussed the procedure of sigmoid colon resection with end colostomy or diverting colostomy via open approach. We discussed the incidence of recurrence, preoperative, perioperative and postoperative course, preoperative preparation and possibility of conversion to an open procedure, and ileus in detail. She will rescind her DNR order in the perioperative period. I spent more than 40 min on this encounter 10/23/2023 documented in this encounter [facility] Work Phone: 09-28-2023 Nurse Note Discharge paper work sent with patient, along with belongings documented in this encounter [facility] Work Phone: 09-28-2023 History of Present illness Narrative Poli Ramirez is a 72 y.o. female on day 13 of admission presenting with Colovaginal fistula. LILY briefly met with pt about discharge needs. Pt lives at the [facility] in [place], [place]. Pt can discharge in the next few days. Facility notified through [facility]. SW will follow and assist as needed. SYDNEY Seth. 09/23/2023 LILY spoke to Caroline ([phone]) at the [facility] about pt's return. The facility does not accept weekend discharges so pt will discharge back to facility on 09/26/2023. Pt will also need a negative covid test, taken same day. Care team notified. SW will arrange transport for midday 09/26. SW will follow and assist. SYDNEY Seth. 09/26/2023 SW messaged pt's residence to let them know that ADOD is Tuesday or Tuesday. A covid test will be done morning of discharge. SYDNEY Seth. 09/26/2023 LILY spoke to Caroline from [facility] about pt's care. Pt has a cardiac scan today. ADOD is tomorrow or Tuesday. Updated notes sent to pt's facility. SYDNEY Seth. 09/27/2023 Pt set for discharge today. Neg covid test (taken this morning) sent to [facility]. Transport requested for 1530. SW will let the facility know when transport is confirmed. SYDNEY Seth. 09/27/2023 Transport set for 1730 with [facility]. Care team and facility notified. SYDNEY Seth. 09/28/2023 [facility] pushed transport time to 1030p and then attempted pickup at 3a this morning. Pt's residence could not accept that late. Transport will be rescheduled for this morning. SYDNEY Seth. 09/28/2023 Transport confirmed with [facility] for 11a. Neg covid test results (collected this morning) sent to facility. SYDNEY Seth. Poli Ramirez is a 72 y.o. female on day 13 of admission presenting with Colovaginal fistula. LILY briefly met with pt about discharge needs. Pt lives at the [facility] in [place], [place]. Pt can discharge in the next few days. Facility notified through [facility]. SW will follow and assist as needed. SYDNEY Seth. 09/23/2023 LILY spoke to Caroline ([phone]) at the [facility] about pt's return. The facility does not accept weekend discharges so pt will discharge back to facility on 09/26/2023. Pt will also need a negative covid test, taken same day. Care team notified. SW will arrange transport for midday 09/26. SW will follow and assist. SYDNEY Seth. 09/26/2023 SW messaged pt's residence to let them know that ADOD is Tuesday or Tuesday. A covid test will be done morning of discharge. SYDNEY Seth. 09/26/2023 LILY spoke to Caroline from [facility] about pt's care. Pt has a cardiac scan today. ADOD is tomorrow or Tuesday. Updated notes sent to pt's facility. SYDNEY Seth. 09/27/2023 Pt set for discharge today. Neg covid test (taken this morning) sent to [facility]. Transport requested for 1530. LILY will let the facility know when transport is confirmed. SYDNEY Seth. 09/27/2023 Transport set for 1730 with [facility]. Care team and facility notified. SYDNEY Seth. 09/28/2023 [facility] pushed transport time to 1030p and then attempted pickup at 3a this morning. Pt's residence could not accept that late. Transport will be rescheduled for this morning. SYDNEY Seth. [facility] HEART FAILURE PROGRESS NOTE Poli Ramirez/[id number] Admit Date: 09/15/2023 Hospital Length of Stay: 12 Primary Service: Colorectal surgery INTERVAL EVENTS / PERTINENT ROS: CCTA results reviewed, no significant CAD noted, Calcium score 34. Still without cardiac complaint. MEDICATIONS Infusions: Scheduled: cefTRIAXone, 1 g, q24h enoxaparin, 40 mg, q24h metoprolol succinate XL, 100 mg, Daily metroNIDAZOLE, 500 mg, q8h nitrofurantoin (macrocrystal-monohydrate), 100 mg, q12h DIONY pantoprazole, 40 mg, Daily sacubitriL-valsartan, 0.5 tablet, BID PRN: acetaminophen, 650 mg, q4h PRN dextrose 10 % in water (D10W), 0.3 g/kg/hr, Once PRN dextrose, 25 g, q15 min PRN glucagon, 1 mg, q15 min PRN LORazepam, 0.5 mg, q5 min PRN metoprolol, 5 mg, Once PRN ondansetron, 4 mg, q8h PRN oxyCODONE, 10 mg, q4h PRN oxyCODONE, 5 mg, q4h PRN sennosides-docusate sodium, 1 tablet, Daily PRN simethicone, 80 mg, q6h PRN PHYSICAL EXAM: Visit Vitals BP 123/78 Pulse 87 Temp 36.5 C (97.7 F) Resp 18 Ht 1.651 m (5' 5") Wt 74.8 kg (165 lb) SpO2 100% BMI 27.46 kg/m OB Status Postmenopausal Smoking Status Former BSA 1.85 m Wt Readings from Last 5 Encounters: 09/15/23 74.8 kg (165 lb) 09/15/23 79.1 kg (174 lb 6.1 oz) INTAKE/OUTPUT: I/O last 3 completed shifts: In: 350 (4.7 mL/kg) [P.O.:200; IV Piggyback:150] Out: 895 (12 mL/kg) [Urine:895 (0.3 mL/kg/hr)] Weight: 74.8 kg Physical Exam Constitutional: Appearance: Normal appearance. HENT: Head: Normocephalic. Mouth/Throat: Mouth: Mucous membranes are moist. Pharynx: No oropharyngeal exudate. Eyes: Extraocular Movements: Extraocular movements intact. Conjunctiva/sclera: Conjunctivae normal. Cardiovascular: Rate and Rhythm: Normal rate and regular rhythm. Heart sounds: No murmur heard. Pulmonary: Effort: Pulmonary effort is normal. No respiratory distress. Breath sounds: Normal breath sounds. Abdominal: General: There is no distension. Palpations: Abdomen is soft. Skin: General: Skin is warm and dry. Neurological: General: No focal deficit present. Mental Status: She is alert and oriented to person, place, and time. Psychiatric: Mood and Affect: Mood normal. DATA: CMP: Results from last 7 days Lab Units 09/27/23 0602 09/26/23 0647 09/24/23 0548 09/23/23 0716 09/22/23 0832 09/21/23 0637 SODIUM mmol/L 147* 147* 146* 144 146* 146* POTASSIUM mmol/L 3.9 3.8 4.0 4.0 4.0 3.8 CHLORIDE mmol/L 102 101 98 100 101 101 CO2 mmol/L 42* 45* 42* 40* 38* 41* ANION GAP mmol/L 7* <7* 10 8* 11 8* BUN mg/dL 12 16 10 13 15 12 CREATININE mg/dL 0.41* 0.45* 0.42* 0.42* 0.42* 0.45* EGFR mL/min/1.73m*2 >90 >90 >90 >90 >90 >90 MAGNESIUM mg/dL 2.13 2.17 2.01 2.04 2.07 2.05 ALBUMIN g/dL 2.8* 2.8* 2.8* 2.9* 2.7* 2.7* CBC: Results from last 7 days Lab Units 09/27/23 0602 09/26/23 0647 09/24/23 0548 09/23/23 0716 09/22/23 0832 09/21/23 0637 WBC AUTO x10*3/uL 3.2* 4.1* 4.7 4.9 4.7 5.0 HEMOGLOBIN g/dL 8.0* 7.6* 7.8* 7.7* 8.0* 8.0* HEMATOCRIT % 28.0* 26.6* 26.5* 26.9* 27.9* 25.6* PLATELETS AUTO x10*3/uL 115* 107* 96* 93* 99* 88* MCV fL 104* 105* 99 104* 104* 98 COAG: ABO: No results found for: "ABO" HEME/ENDO: CARDIAC: No lab exists for component: "CK", "CKMBP" Past Cardiology Tests (Last 3 Years): EK09/19/23 Echo: Transthoracic Echo (TTE) Complete 09/20/2023 CONCLUSIONS: 1. Left ventricular systolic function is severely decreased with a 15-20% estimated ejection fraction. 2. Echocontrast was utilized and excluded LV apical thrombus. 3. Spectral Doppler shows an impaired relaxation pattern of left ventricular diastolic filling. 4. Primary service notified of results at the time of reporting. 5. No prior echocardiogram available for comparison. 6. There is global hypokinesis of the left ventricle with minor regional variations. Prior to Admission Meds: Medications Prior to Admission Medication Sig Dispense Refill Last Dose acetaminophen (Tylenol) 325 mg tablet Take 2 tablets (650 mg) by mouth once daily at bedtime. Scheduled acetaminophen (Tylenol) 325 mg tablet Take 2 tablets (650 mg) by mouth every 4 hours if needed (elevated temp or pain). MAX 3GM/24HR acetaminophen (Tylenol) 325 mg tablet Take 2 tablets (650 mg) by mouth once daily in the morning. Scheduled bisacodyl (Dulcolax) 10 mg suppository Insert 1 suppository (10 mg) into the rectum once daily as needed for constipation. calcium carbonate (Tums) 200 mg calcium chewable tablet Chew 1 tablet (500 mg) 2 times a day. For gas/stomach pains. Give with breakfast and supper. carvedilol (Coreg) 3.125 mg tablet Take 1 tablet (3.125 mg) by mouth 2 times a day. cranberry fruit 400 mg tablet Take 1 tablet by mouth once daily. For UTI prevention cyanocobalamin (Vitamin B-12) 1,000 mcg tablet Take 1 tablet (1,000 mcg) by mouth once daily in the morning. cyanocobalamin (Vitamin B-12) 500 mcg tablet Take 1 tablet (500 mcg) by mouth once daily at bedtime. dicyclomine (Bentyl) 20 mg tablet Take 1 tablet (20 mg) by mouth every 8 hours if needed. For abdominal pain dicyclomine (Bentyl) 20 mg tablet Take 1 tablet (20 mg) by mouth 2 times a day. Scheduled estrogens, conjugated, (Premarin) vaginal cream Insert 1 applicatorful vaginally at bedtime every MON and THURS, for vaginal bleeding, for 1 month. End date 10/15/23. ferrous sulfate 325 (65 Fe) MG tablet Take 1 tablet (65 mg of iron) by mouth 2 times a day. FEOSOL 200 (65 Fe) Mg Per SNF List folic acid (Folvite) 1 mg tablet Take 1 tablet (1 mg) by mouth once daily in the morning. furosemide (Lasix) 20 mg tablet Take 1 tablet (20 mg) by mouth once daily in the morning. gabapentin (Neurontin) 100 mg capsule Take 1 capsule (100 mg) by mouth 3 times a day. glimepiride (Amaryl) 1 mg tablet Take 1 tablet (1 mg) by mouth once daily in the morning. glucagon HCL (Glucagon, HCl, Emergency Kit) 1 mg recon soln Inject 1 mg as directed if needed. If blood glucose is less than 70 and non-responsive or NPO lisinopril 5 mg tablet Take 0.5 tablets (2.5 mg) by mouth once daily in the morning. 2.5 mg daily magnesium hydroxide (Milk of Magnesia) 400 mg/5 mL suspension Take 30 mL by mouth once daily as needed for constipation. [] nitrofurantoin, macrocrystal-monohydrate, (Macrobid) 100 mg capsule Take 1 capsule (100 mg) by mouth 2 times a day. For 7 days, end date 09/20/23 ondansetron (Zofran) 4 mg tablet Take 1 tablet (4 mg) by mouth every 8 hours if needed for nausea. pantoprazole (ProtoNix) 40 mg EC tablet Take 1 tablet (40 mg) by mouth once daily. Do not crush, chew, or split. phenazopyridine (Pyridium) 100 mg tablet Take 1 tablet (100 mg) by mouth every 8 hours if needed. potassium chloride CR 20 mEq ER tablet Take 1 tablet (20 mEq) by mouth once daily in the morning. Do not crush or chew. sennosides-docusate sodium (Zarina-Colace) 8.6-50 mg tablet Take 1 tablet by mouth once daily as needed for constipation. simethicone (Mylicon) 80 mg chewable tablet Chew 1 tablet (80 mg) every 6 hours if needed for flatulence. simethicone (Mylicon) 80 mg chewable tablet Chew 1 tablet (80 mg) once daily in the morning. Scheduled simvastatin (Zocor) 10 mg tablet Take 1 tablet (10 mg) by mouth once daily at bedtime. sodium phosphates (Fleet Enema) 19-7 gram/118 mL enema enema Insert 118 mL (1 enema) into the rectum once daily as needed for constipation. [DISCONTINUED] HYDROcodone-acetaminophen ([place]) 5-325 mg tablet Take 1 tablet by mouth every 6 hours if needed (moderate to severe pain). [DISCONTINUED] L. acidophilus-L. rhamnosus (Probiotic) 15 billion cell capsule Take 1 capsule by mouth once daily. For 7 days ending 09/20/23. ([facility] [place] Ultimate Jie Probiotic 15 BILLION per SNF list) ASSESSMENT AND PLAN: #Newly diagnosed cardiomyopathy, EF 15-20%. Similar findings on TTE report from [facility]. Currently she appears compensated. Unknown etiology currently. Large differential but includes, ischemic cardiomyopathy, long standing hypertensive cardiomyopathy or chemotherapy induced. We will need to rule out ischemia prior to surgical intervention. 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 Still being worked up by primary team, tentatively planning surgical repair in the near future. no surgery planned as of yet #Hypertension #Hyperlipidemia #COPD on 2L chronically Recommendations: Continue metoprolol succinate 100 mg daily Continue Entresto 12-13 mg BID At the moment, no further cardiac testing needed prior to surgery Follow up planned in HF clinic in 2-4 weeks. Discussed with HF attending, Jeovanny Melo DO PGY-4 Advanced Heart Failure Fellow Associated attestation - Susy Madrigal DO - 09/27/2023 5:15 PM EST 72F with newly diagnosed HFrEF. CCTA consistent with NICM. No further room to optimize GDMT. Recs: -maintain current GDMT -will arrange follow up in the HF clinic I saw and evaluated the patient. I personally obtained the baeza and critical portions of the history and physical exam or was physically present for baeza and critical portions performed by the resident/fellow. I reviewed the resident/fellow's documentation and discussed the patient with the resident/fellow. I agree with the resident/fellow's medical decision making as documented in the note. Poli Ramirez is a 72 y.o. female on day 12 of admission presenting with Colovaginal fistula. SW briefly met with pt about discharge needs. Pt lives at the [facility] in [place], [place]. Pt can discharge in the next few days. Facility notified through [facility]. SW will follow and assist as needed. Susy CORTEZ, SLATE HAND[employer]ER. 09/23/2023 LILY spoke to Caroline ([phone]) at the [facility] about pt's return. The facility does not accept weekend discharges so pt will discharge back to facility on 09/26/2023. Pt will also need a negative covid test, taken same day. Care team notified. SW will arrange transport for midday 09/26. SW will follow and assist. SYDNEY Seth. 09/26/2023 LILY messaged pt's residence to let them know that ADOD is Tuesday or 09/28, Tuesday. A covid test will be done morning of discharge. SYDNEY Seth. 09/26/2023 LILY spoke to Caroline from [facility] about pt's care. Pt has a cardiac scan today. ADOD is tomorrow or Tuesday. Updated notes sent to pt's facility. SYDNEY Seth. 09/27/2023 Pt set for discharge today. Neg covid test (taken this morning) sent to [facility]. Transport requested for 1530. LILY will let the facility know when transport is confirmed. SYDNEY Seth. 09/27/2023 Transport set for 1730 with [facility]. Care team and facility notified. SYDNEY Seth. Poli Ramirez is a 72 y.o. female on day 12 of admission presenting with Colovaginal fistula. LILY briefly met with pt about discharge needs. Pt lives at the [facility] in [place], [place]. Pt can discharge in the next few days. Facility notified through [facility]. SW will follow and assist as needed. SYDNEY Seth. 09/23/2023 LILY spoke to Caroline ([phone]) at the [facility] about pt's return. The facility does not accept weekend discharges so pt will discharge back to facility on 09/26/2023. Pt will also need a negative covid test, taken same day. Care team notified. SW will arrange transport for midday 09/26. LILY will follow and assist. SYDNEY Seth. 09/26/2023 SW messaged pt's residence to let them know that ADOD is 09/27, Tuesday or 09/28, Tuesday. A covid test will be done morning of discharge. SYDNEY Seth. 09/26/2023 LILY spoke to Caroline from [facility] about pt's care. Pt has a cardiac scan today. ADOD is tomorrow or Tuesday. Updated notes sent to pt's facility. SYDNEY Seth. 09/27/2023 Pt set for discharge today. Neg covid test (taken this morning) sent to [facility]. Transport requested for 1530. LILY will let the facility know when transport is confirmed. SYDNEY Seth. Poli Ramirez is a 72 y.o. female on day 11 of admission presenting with complicated diverticulitis with abscess and Colovaginal fistula. Subjective Interval History: No fevers in past day, HDS ID re-engaged that no abscess drainage or fistula repair planned now due to inflammation but would be addressed in outpt setting. Primary seeking Abx recs for abscess coverage for discharge. Currently on oral NTF for VRE uti and CTX and Flagyl for Abscess coverage Review of Systems Objective Range of Vitals (last 24 hours) Heart Rate: [67-87] Temp: [36.4 C (97.5 F)-37 C (98.6 F)] Resp: [16-18] BP: (91-145)/(44-82) SpO2: [97 %-100 %] Daily Weight 09/15/23 : 74.8 kg (165 lb) Body mass index is 27.46 kg/m . Physical Exam Constitutional: General: She is not in acute distress. Appearance: She is normal weight. She is not toxic-appearing. HENT: Head: Normocephalic and atraumatic. Eyes: Conjunctiva/sclera: Conjunctivae normal. Cardiovascular: Rate and Rhythm: Normal rate and regular rhythm. Pulses: Normal pulses. Heart sounds: Normal heart sounds. No murmur heard. Pulmonary: Effort: Pulmonary effort is normal. No respiratory distress. Breath sounds: No wheezing or rales. Abdominal: General: Abdomen is flat. Palpations: Abdomen is soft. Tenderness: There is still some abdominal tenderness (with moderate palpation in lower quadrants). No guarding or rebound tenderness Musculoskeletal: General: No swelling, tenderness or deformity. Cervical back: Normal range of motion. No rigidity. Right lower leg: No edema. Skin: General: Skin is warm. Findings: No rash. Neurological: General: No focal deficit present. Mental Status: She is alert and oriented to person, place, and time. Psychiatric: Mood and Affect: Mood normal. Behavior: Behavior normal. Scheduled meds: cefTRIAXone, 1 g, intravenous, q24h enoxaparin, 40 mg, subcutaneous, q24h [START ON 09/27/2023] metoprolol succinate XL, 100 mg, oral, Daily metroNIDAZOLE, 500 mg, intravenous, q8h nitrofurantoin (macrocrystal-monohydrate), 100 mg, oral, q12h DIONY pantoprazole, 40 mg, oral, Daily sacubitriL-valsartan, 0.5 tablet, oral, BID Relevant Results Labs Results from last 72 hours Lab Units 09/26/23 0647 09/24/23 0548 WBC AUTO x10*3/uL 4.1* 4.7 HEMOGLOBIN g/dL 7.6* 7.8* HEMATOCRIT % 26.6* 26.5* PLATELETS AUTO x10*3/uL 107* 96* Results from last 72 hours Lab Units 09/26/23 0647 09/24/23 0548 SODIUM mmol/L 147* 146* POTASSIUM mmol/L 3.8 4.0 CHLORIDE mmol/L 101 98 CO2 mmol/L 45* 42* BUN mg/dL 16 10 CREATININE mg/dL 0.45* 0.42* GLUCOSE mg/dL 111* 140* CALCIUM mg/dL 8.6 8.4* ANION GAP mmol/L <7* 10 EGFR mL/min/1.73m*2 >90 >90 PHOSPHORUS mg/dL 3.2 3.3 Results from last 72 hours Lab Units 09/26/23 0647 09/24/23 0548 ALBUMIN g/dL 2.8* 2.8* Estimated Creatinine Clearance: 112.7 mL/min (A) (by C-G formula based on SCr of 0.45 mg/dL (L)). No results found for: "CRP" Microbiology Susceptibility data from last 14 days. Collected Specimen Info Organism Ampicillin Ciprofloxacin Daptomycin Levofloxacin Linezolid Nitrofurantoin Penicillin Trimethoprim/Sulfamethoxazole Vancomycin 09/20/23 Urine from Indwelling ([place]) Catheter Enterococcus faecium R R SDD R S S R R R Imaging Transthoracic Echo (TTE) Complete 09/20/2023 CONCLUSIONS: 1. Left ventricular systolic function is severely decreased with a 15-20% estimated ejection fraction. 2. Echocontrast was utilized and excluded LV apical thrombus. 3. Spectral Doppler shows an impaired relaxation pattern of left ventricular diastolic filling. 4. Primary service notified of results at the time of reporting. 5. No prior echocardiogram available for comparison. 6. There is global hypokinesis of the left ventricle with minor regional variations. MR pelvis w and wo IV contrast 09/21/23 Impression: 1. Complicated sigmoid diverticulitis with associated abscess abutting the superior bladder and development of colovesicular fistula. 2. 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 3. Multiple fibroids including a mass in the left adnexa favored to be pedunculated fibroid versus less likely fibrous mass including fibroma and fibrothecoma. 4. Tubular structure in the left adnexa with intrinsic T1 hyperintense signal suspicious for small volume hematosalpinx. MICRO 09/15 BCX x2 NGTD 09/20 Ucx >100K E faecium (R amp, cipro, levo, pcn, bactrim, vanc, DD- dapto, S- linezolid, NTF) ABX CTX 09/16- Flagyl 09/16- Ntf 09/22- Assessment/Plan Poli Ramirez is a 72 y.o. 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 Pt currently awaiting surgical definitive treatment. From ID standpoint, would treat for UTI for short 7d course with NTF for cystitis coverage however this would not be curative in the absence of surgical repair and has high risk of occurrence. 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 Additionally, would recommend continuing both IV CTX and Flagyl for abscess coverage until this is also addressed. Pt does not appears to be failing coverage with CTX and flagyl so this an appropriate regimen. She is otherwise well appearing on exam, afebrile, non toxic with no leukocytosis. Final recs as below. UPDATE 09/26/2023: No fevers in past day, HDS . Currently on oral NTF for VRE uti and CTX and Flagyl for Abscess coverage . ID re-engaged TODAY that no abscess drainage or fistula repair planned now due to inflammation present but surgical repair would be addressed in outpt setting. Primary seeking Abx recs for abscess coverage for discharge. Pt to be discharged to SNF shortly with barnes and will return to see Colorectal Surgery Team in 3-4 weeks. RECOMMENDATION 1- For abscess, plan to switch at discharge from IV Ceftriaxone & Flagyl to Oral Augmentin 875mg Q12H for home going for 3-4 weeks until seen in clinic by CRS for surgical repair. 2. As originally planned, continue NTF for 7d course from start date 09/22/23- 09/28/23, then stop.. Agree with surgically addressing fistula as this put pt as high risk of recurrence. 3- Rest of care per primary team. No ID follow up needed. ID has signed off but please call back if further questions. ID team A pager [phone]. For new consults, contact pager [phone]. Patient staffed with ID attendant Dr Agarwal who agrees with plan as above Karina Dnenison MD MPH I reviewed the resident/fellow's documentation and discussed the patient with the resident/fellow. I agree with the resident/fellow's medical decision making as documented in the note. Nadia Agarwal MD Physical Therapy Physical Therapy Treatment Patient Name: Poli Ramirez Today's Date: 09/26/2023 Time Calculation Start Time: 1515 Stop Time: 1526 Time Calculation (min): 11 min Assessment/Plan PT Assessment PT Assessment Results: Decreased strength, Decreased endurance, Impaired balance, Decreased mobility, Pain Rehab Prognosis: Good End of Session Communication: Bedside nurse Assessment Comment: Pt presents with dec strength, balance, & endurance as well as inc pain limiting functional mobility. Would benefit from continued skilled therapy. End of Session Patient Position: Bed, 3 rail up, Alarm off, not on at start of session PT Plan Inpatient/Swing Bed or Outpatient: Inpatient PT Plan Treatment/Interventions: Bed mobility, Transfer training, Gait training, Balance training, Strengthening, Endurance training, Therapeutic exercise, Therapeutic activity PT Plan: Skilled PT PT Frequency: 3 times per week PT Discharge Recommendations: Moderate intensity level of continued care PT Recommended Transfer Status: Assist x1, Assistive device PT - OK to Discharge: Yes (PT eval complete and discharge recs made) General Visit Information: PT Visit PT Received On: 09/26/23 Response to Previous Treatment: Patient with no complaints from previous session. General Reason for Referral: colovesical/colovaginal fistula and diverticulitis Family/Caregiver Present: No Prior to Session Communication: Bedside nurse Patient Position Received: Up in chair, Alarm off, not on at start of session General Comment: Pt up in chair upon PT arrival, states getting uncomfortable and wishes to return to bed. Agreeable to therapy session. Subjective Precautions: Precautions Medical Precautions: Abdominal precautions, Fall precautions, Oxygen therapy device and L/min Post-Surgical Precautions: Abdominal surgery precautions Objective Pain: Pain Assessment Pain Assessment: 0-10 Pain Score: 8 Pain Type: Acute pain Pain Location: Abdomen Pain Interventions: Repositioned Cognition: Cognition Overall Cognitive Status: Within Functional Limits Activity Tolerance: Activity Tolerance Endurance: Tolerates 10 - 20 min exercise with multiple rests Treatments: Bed Mobility Bed Mobility: Yes Bed Mobility 1 Bed Mobility 1: Sitting to supine Level of Assistance 1: Minimum assistance Ambulation/Gait Training Ambulation/Gait Training Performed: Yes Ambulation/Gait Training 1 Surface 1: Level tile Device 1: Rolling walker Assistance 1: Contact guard, Minimal verbal cues Quality of Gait 1: (forward flexed posture, fatigues quickly, short steps) Comments/Distance (ft) 1: 3' Transfers Transfer: Yes Transfer 1 Technique 1: Sit to stand, Stand to sit Transfer Device 1: Walker Transfer Level of Assistance 1: Minimum assistance Outcome Measures: [facility] Basic Mobility Turning from your back to your side while in a flat bed without using bedrails: A little Moving from lying on your back to sitting on the side of a flat bed without using bedrails: A little Moving to and from bed to chair (including a wheelchair): A little Standing up from a chair using your arms (e.g. wheelchair or bedside chair): A little To walk in hospital room: A little Climbing 3-5 steps with railing: Total Basic Mobility - Total Score: 16 Education Documentation Precautions, taught by Jayleen Butler, PT at 09/26/2023 3:35 PM. Learner: Patient Readiness: Acceptance Method: Explanation Response: Verbalizes Understanding Education Comments No comments found. OP EDUCATION: Encounter Problems Encounter Problems (Active) Mobility STG - Patient will ambulate>/= 30 ft with RW and min A (Progressing) Start: 09/22/23 Expected End: 10/06/23 Pain - Adult Transfers STG - Transfer from bed to chair mod I with RW (Progressing) Start: 09/22/23 Expected End: 10/06/23 STG - Patient will perform bed mobility mod I (Progressing) Start: 09/22/23 Expected End: 10/06/23 STG - Patient will transfer sit to and from stand mod I with RW (Progressing) Start: 09/22/23 Expected End: 10/06/23 [facility]ART FAILURE PROGRESS NOTE Poli Ramirez/[id number] Admit Date: 09/15/2023 Hospital Length of Stay: 11 Primary Service: Colorectal surgery INTERVAL EVENTS / PERTINENT ROS: Went for CCTA this morning. Still without cardiac complaint. MEDICATIONS Infusions: Scheduled: cefTRIAXone, 1 g, q24h enoxaparin, 40 mg, q24h [Held by provider] losartan, 25 mg, Daily metoprolol tartrate, 50 mg, q8h metroNIDAZOLE, 500 mg, q8h nitrofurantoin (macrocrystal-monohydrate), 100 mg, q12h DIONY pantoprazole, 40 mg, Daily PRN: acetaminophen, 650 mg, q4h PRN dextrose 10 % in water (D10W), 0.3 g/kg/hr, Once PRN dextrose, 25 g, q15 min PRN glucagon, 1 mg, q15 min PRN LORazepam, 0.5 mg, q5 min PRN metoprolol, 5 mg, Once PRN ondansetron, 4 mg, q8h PRN oxyCODONE, 10 mg, q4h PRN oxyCODONE, 5 mg, q4h PRN sennosides-docusate sodium, 1 tablet, Daily PRN simethicone, 80 mg, q6h PRN PHYSICAL EXAM: Visit Vitals BP 104/55 (BP Location: Right arm, Patient Position: Lying) Pulse 74 Temp 36.8 C (98.2 F) (Temporal) Resp 18 Ht 1.651 m (5' 5") Wt 74.8 kg (165 lb) SpO2 100% BMI 27.46 kg/m OB Status Postmenopausal Smoking Status Former BSA 1.85 m Wt Readings from Last 5 Encounters: 09/15/23 74.8 kg (165 lb) 09/15/23 79.1 kg (174 lb 6.1 oz) INTAKE/OUTPUT: I/O last 3 completed shifts: In: - (0 mL/kg) Out: 895 (12 mL/kg) [Urine:895 (0.3 mL/kg/hr)] Weight: 74.8 kg Physical Exam Constitutional: Appearance: Normal appearance. HENT: Head: Normocephalic. Mouth/Throat: Mouth: Mucous membranes are moist. Pharynx: No oropharyngeal exudate. Eyes: Extraocular Movements: Extraocular movements intact. Conjunctiva/sclera: Conjunctivae normal. Cardiovascular: Rate and Rhythm: Normal rate and regular rhythm. Heart sounds: No murmur heard. Pulmonary: Effort: Pulmonary effort is normal. No respiratory distress. Breath sounds: Normal breath sounds. Abdominal: General: There is no distension. Palpations: Abdomen is soft. Skin: General: Skin is warm and dry. Neurological: General: No focal deficit present. Mental Status: She is alert and oriented to person, place, and time. Psychiatric: Mood and Affect: Mood normal. DATA: CMP: Results from last 7 days Lab Units 09/26/23 0647 09/24/23 0548 09/23/23 0716 09/22/23 0832 09/21/23 0637 09/20/23 0644 SODIUM mmol/L 147* 146* 144 146* 146* 144 POTASSIUM mmol/L 3.8 4.0 4.0 4.0 3.8 3.9 CHLORIDE mmol/L 101 98 100 101 101 99 CO2 mmol/L 45* 42* 40* 38* 41* 40* ANION GAP mmol/L <7* 10 8* 11 8* 9* BUN mg/dL 16 10 13 15 12 9 CREATININE mg/dL 0.45* 0.42* 0.42* 0.42* 0.45* 0.51 EGFR mL/min/1.73m*2 >90 >90 >90 >90 >90 >90 MAGNESIUM mg/dL 2.17 2.01 2.04 2.07 2.05 2.15 ALBUMIN g/dL 2.8* 2.8* 2.9* 2.7* 2.7* 2.9* CBC: Results from last 7 days Lab Units 09/26/23 0647 09/24/23 0548 09/23/23 0716 09/22/23 0832 09/21/23 0637 09/20/23 0644 WBC AUTO x10*3/uL 4.1* 4.7 4.9 4.7 5.0 4.3* HEMOGLOBIN g/dL 7.6* 7.8* 7.7* 8.0* 8.0* 8.3* HEMATOCRIT % 26.6* 26.5* 26.9* 27.9* 25.6* 27.7* PLATELETS AUTO x10*3/uL 107* 96* 93* 99* 88* 92* MCV fL 105* 99 104* 104* 98 102* COAG: ABO: No results found for: "ABO" HEME/ENDO: CARDIAC: No lab exists for component: "CK", "CKMBP" Past Cardiology Tests (Last 3 Years): EK09/19/23 Echo: Transthoracic Echo (TTE) Complete 09/20/2023 CONCLUSIONS: 1. Left ventricular systolic function is severely decreased with a 15-20% estimated ejection fraction. 2. Echocontrast was utilized and excluded LV apical thrombus. 3. Spectral Doppler shows an impaired relaxation pattern of left ventricular diastolic filling. 4. Primary service notified of results at the time of reporting. 5. No prior echocardiogram available for comparison. 6. There is global hypokinesis of the left ventricle with minor regional variations. Prior to Admission Meds: Medications Prior to Admission Medication Sig Dispense Refill Last Dose acetaminophen (Tylenol) 325 mg tablet Take 2 tablets (650 mg) by mouth once daily at bedtime. Scheduled acetaminophen (Tylenol) 325 mg tablet Take 2 tablets (650 mg) by mouth every 4 hours if needed (elevated temp or pain). MAX 3GM/24HR acetaminophen (Tylenol) 325 mg tablet Take 2 tablets (650 mg) by mouth once daily in the morning. Scheduled bisacodyl (Dulcolax) 10 mg suppository Insert 1 suppository (10 mg) into the rectum once daily as needed for constipation. calcium carbonate (Tums) 200 mg calcium chewable tablet Chew 1 tablet (500 mg) 2 times a day. For gas/stomach pains. Give with breakfast and supper. carvedilol (Coreg) 3.125 mg tablet Take 1 tablet (3.125 mg) by mouth 2 times a day. cranberry fruit 400 mg tablet Take 1 tablet by mouth once daily. For UTI prevention cyanocobalamin (Vitamin B-12) 1,000 mcg tablet Take 1 tablet (1,000 mcg) by mouth once daily in the morning. cyanocobalamin (Vitamin B-12) 500 mcg tablet Take 1 tablet (500 mcg) by mouth once daily at bedtime. dicyclomine (Bentyl) 20 mg tablet Take 1 tablet (20 mg) by mouth every 8 hours if needed. For abdominal pain dicyclomine (Bentyl) 20 mg tablet Take 1 tablet (20 mg) by mouth 2 times a day. Scheduled estrogens, conjugated, (Premarin) vaginal cream Insert 1 applicatorful vaginally at bedtime every TUE and , for vaginal bleeding, for 1 month. End date 10/15/23. ferrous sulfate 325 (65 Fe) MG tablet Take 1 tablet (65 mg of iron) by mouth 2 times a day. FEOSOL 200 (65 Fe) Mg Per SNF List folic acid (Folvite) 1 mg tablet Take 1 tablet (1 mg) by mouth once daily in the morning. furosemide (Lasix) 20 mg tablet Take 1 tablet (20 mg) by mouth once daily in the morning. gabapentin (Neurontin) 100 mg capsule Take 1 capsule (100 mg) by mouth 3 times a day. glimepiride (Amaryl) 1 mg tablet Take 1 tablet (1 mg) by mouth once daily in the morning. glucagon HCL (Glucagon, HCl, Emergency Kit) 1 mg recon soln Inject 1 mg as directed if needed. If blood glucose is less than 70 and non-responsive or NPO HYDROcodone-acetaminophen ([place]) 5-325 mg tablet Take 1 tablet by mouth every 6 hours if needed (moderate to severe pain). [] L. acidophilus-L. rhamnosus (Probiotic) 15 billion cell capsule Take 1 capsule by mouth once daily. For 7 days ending 09/20/23. ([facility] Jie Probiotic 15 BILLION per SNF list) lisinopril 5 mg tablet Take 0.5 tablets (2.5 mg) by mouth once daily in the morning. 2.5 mg daily magnesium hydroxide (Milk of Magnesia) 400 mg/5 mL suspension Take 30 mL by mouth once daily as needed for constipation. [] nitrofurantoin, macrocrystal-monohydrate, (Macrobid) 100 mg capsule Take 1 capsule (100 mg) by mouth 2 times a day. For 7 days, end date 09/20/23 ondansetron (Zofran) 4 mg tablet Take 1 tablet (4 mg) by mouth every 8 hours if needed for nausea. pantoprazole (ProtoNix) 40 mg EC tablet Take 1 tablet (40 mg) by mouth once daily. Do not crush, chew, or split. phenazopyridine (Pyridium) 100 mg tablet Take 1 tablet (100 mg) by mouth every 8 hours if needed. potassium chloride CR 20 mEq ER tablet Take 1 tablet (20 mEq) by mouth once daily in the morning. Do not crush or chew. sennosides-docusate sodium (Zarina-Colace) 8.6-50 mg tablet Take 1 tablet by mouth once daily as needed for constipation. simethicone (Mylicon) 80 mg chewable tablet Chew 1 tablet (80 mg) every 6 hours if needed for flatulence. simethicone (Mylicon) 80 mg chewable tablet Chew 1 tablet (80 mg) once daily in the morning. Scheduled simvastatin (Zocor) 10 mg tablet Take 1 tablet (10 mg) by mouth once daily at bedtime. sodium phosphates (Fleet Enema) 19-7 gram/118 mL enema enema Insert 118 mL (1 enema) into the rectum once daily as needed for constipation. ASSESSMENT AND PLAN: #Newly diagnosed cardiomyopathy, EF 15-20%. Similar findings on TTE report from [facility]. Currently she appears compensated. Unknown etiology currently. Large differential but includes, ischemic cardiomyopathy, long standing hypertensive cardiomyopathy or chemotherapy induced. We will need to rule out ischemia prior to surgical intervention. 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 Still being worked up by primary team, tentatively planning surgical repair in the near future. no surgery planned as of yet #Hypertension #Hyperlipidemia #COPD on 2L chronically Recommendations: Switch metoprolol tartrate to metoprolol succinate 100 mg daily Stop losartan and start Entresto 12-13 mg BID Will follow up CCTA results. Discussed with HF attending, Jeovanny Melo DO PGY-4 Advanced Heart Failure Fellow Associated attestation - Susy Madrigal DO - 09/26/2023 5:43 PM EST 72F with newly diagnosed HFrEF. CCTA performed today with results pending. Recs: -f/u results of CCTA -will optimize GDMT as tolerated I saw and evaluated the patient. I personally obtained the baeza and critical portions of the history and physical exam or was physically present for baeza and critical portions performed by the resident/fellow. I reviewed the resident/fellow's documentation and discussed the patient with the resident/fellow. I agree with the resident/fellow's medical decision making as documented in the note. Poli Ramirez is a 72 y.o. female on day 11 of admission presenting with Colovaginal fistula. SW briefly met with pt about discharge needs. Pt lives at the [facility] in [place], [place]. Pt can discharge in the next few days. Facility notified through [facility]. SW will follow and assist as needed. Susy Blunt [facility] [place], [employer]. 09/23/2023 SW spoke to Caroline ([phone]) at the [facility] about pt's return. The facility does not accept weekend discharges so pt will discharge back to facility on 09/26/2023. Pt will also need a negative covid test, taken same day. Care team notified. SW will arrange transport for mid09/26. SW will follow and assist. SYDNEY Seth. 09/26/2023 LILY messaged pt's residence to let them know that ADOD is Tuesday or Tuesday. A covid test will be done morning of discharge. SYDNEY Seth. 09/26/2023 LILY spoke to Caroline from [facility] about pt's care. Pt has a cardiac scan today. ADOD is tomorrow or Tuesday. Updated notes sent to pt's facility. SYDNEY Seth. Poli Ramirez is a 72 y.o. female on day 11 of admission presenting with Colovaginal fistula. SW briefly met with pt about discharge needs. Pt lives at the [facility] in [place], [place]. Pt can discharge in the next few days. Facility notified through [facility]. SW will follow and assist as needed. SYDNEY Seth. 09/23/2023 LILY spoke to Caroline ([phone]) at the [facility] about pt's return. The facility does not accept weekend discharges so pt will discharge back to facility on 09/26/2023. Pt will also need a negative covid test, taken same day. Care team notified. SW will arrange transport for midday 09/26. SW will follow and assist. SYDNEY Seth. 09/26/2023 LILY messaged pt's residence to let them know that ADOD is 09/27, Tuesday or Tuesday. A covid test will be done morning of discharge. SYDNEY Seth. Images from the original note were not included. Colorectal Surgery Progress Note Reason for admission: complicated diverticulitis with fistula to bladder . HPI: 72-year-old female with past medical history significant for hypertension on Lasix and lisinopril, hyperlipidemia, COPD (on 2 L nasal cannula at home), type 2 diabetes (not on insulin at home), left breast cancer status post lumpectomy, pancytopenia, open cholecystectomy and appendectomy who presented as a transfer from [facility] due to left lower quadrant abdominal pain suspicious for colovesical/colovaginal fistula and diverticulitis on CT. Subjective No acute events overnight. Pain well controlled Nausea well controlled, has not vomited Having bowel movements Voiding via barnes catheter Has not ambulated Objective Physical Exam: Gen: in no apparent distress Resp: has a normal respiratory effort on 2L NC Abd: Abdomen is soft, not distended, mildly tender in LLQ. Skin: Warm and dry Extremities: Warm and dry, no edema. Anorectal: Deferred. : barnes with dark urine I/O last 3 completed shifts: In: - (0 mL/kg) Out: 1500 (20 mL/kg) [Urine:1500 (0.6 mL/kg/hr)] Weight: 74.8 kg Stoma output in past 24h: no stoma I/O this shift: In: - Out: 395 [Urine:395] Data Review: CBC: Lab Results Component Value Date WBC 4.7 09/24/2023 RBC 2.68 (L) 09/24/2023 BMP: Lab Results Component Value Date GLUCOSE 140 (H) 09/24/2023 CO2 42 (HH) 09/24/2023 BUN 10 09/24/2023 CREATININE 0.42 (L) 09/24/2023 CALCIUM 8.4 (L) 09/24/2023 Coagulation: No results found for: "INR", "APTT" Imaging: none Assessment: 72-year-old female with HTN, HLD, COPD 2L NC, DM2, who presented as a transfer from [facility] due to left lower quadrant abdominal pain suspicious for colovesical/colovaginal fistula and diverticulitis on CT. Physical exam and imaging is suspicious for fistula. Ucx: e.fecium VRSita, ID consulted. Plan: Neuro: Continue current pain regimen with IV pain meds (diaudid PRN) Resp: Home O2 2L, incentive spirometer Card: metop 50 q8, holding losartan/spironolactone; coronary CTA today and follow-up perioperative medicine recommendations FEN: HLIV GI: NPO for coronary CTA; resume carb controlled diet with glucerna shakes TID; weekly LFTs, prealbumin; PO PPI : Maintain barnes for decompression; MISSILE INSPECTOR PREFLIGHT ONC - likely no fistula to vagina but will be available in OR; Urine Cx- nitrofurantoin for Enterococcus faecium (VRE) 09/23 - TBD; ceftriaxone/flagyl for complicated diverticulitis 09/16 - TBD since no source control yet Heme/ID: no suspicion of bleeding Ppy: Lovenox 40mg daily, SCDs Special: Okay for shower Dispo: Continue care on RNF. Plans discussed with staff, Dr. Subramanian. Rasheed Brandt MD Colorectal Surgery [place] [facility] Pager [phone] Poli Ramirez is a 72 y.o. female on day 10 of admission presenting with Colovaginal fistula. Subjective No new issues. Objective Physical Exam AOX 3 No pedal edema SIS2+ Lungs clear Last Recorded Vitals Blood pressure 108/66, pulse 62, temperature 36.5 C (97.7 F), temperature source Temporal, resp. rate 16, height 1.651 m (5' 5"), weight 74.8 kg (165 lb), SpO2 100 %. Intake/Output last 3 Shifts: I/O last 3 completed shifts: In: - (0 mL/kg) Out: 1330 (17.8 mL/kg) [Urine:1330 (0.5 mL/kg/hr)] Weight: 74.8 kg Relevant Results No results found for this or any previous visit (from the past 24 hour(s)). Assessment/Plan 72yr old lady with Severe HFrEF with Dilated CMP on unclear etiology presenting for major abd surgery for chronic Colovesical fistula. HFrEF - EF 15% by Echo, no h/o known CAD, EKG no pathological Q waves H/o Early stage Breat Ca> 10yrs ago treated with Lumpectomy and XRT, pt now mentions she does not remember that she received any Chemo like Doxorubicin Attempted CCTA on 09/23/2023 abandoned as resting HR too high. Pt since started on oral Metoprolol 50mg TID and currently resting HR in the low 60's. Will attempt CCTA on 09/26/2023 morning. If unable then may switch to Nuclear Stress eval NPO from midnight Rima Apple MD Poli Ramirez is a 72 y.o. female on day 8 of admission presenting with Colovaginal fistula. SW briefly met with pt about discharge needs. Pt lives at the [facility] in [place], [place]. Pt can discharge in the next few days. Facility notified through [facility]. SW will follow and assist as needed. SYDNEY Seth. 09/23/2023 SW spoke to Caroline ([phone]) at the [facility] about pt's return. The facility does not accept weekend discharges so pt will discharge back to facility on 09/26/2023. Pt will also need a negative covid test, taken same day. Care team notified. SW will arrange transport for midday 09/26. SW will follow and assist. SYDNEY Seth. [facility] HEART FAILURE PROGRESS NOTE Poli Ramirez/[id number] Admit Date: 09/15/2023 Hospital Length of Stay: 7 Primary Service: Colorectal surgery INTERVAL EVENTS / PERTINENT ROS: Records reviewed from [place]. Patient is being planned for surgery for colovesical fistula. MEDICATIONS Infusions: Scheduled: cefTRIAXone, 1 g, q24h enoxaparin, 40 mg, q24h insulin lispro, 0-5 Units, Before meals & nightly LORazepam, 0.5 mg, Once losartan, 25 mg, Daily metoprolol succinate XL, 12.5 mg, Daily metroNIDAZOLE, 500 mg, q8h nitrofurantoin (macrocrystal-monohydrate), 100 mg, q12h DIONY perflutren protein A microsphere, 0.5 mL, Once in imaging sulfur hexafluoride microsphr, 2 mL, Once in imaging PRN: acetaminophen, 650 mg, q4h PRN dextrose 10 % in water (D10W), 0.3 g/kg/hr, Once PRN dextrose, 25 g, q15 min PRN glucagon, 1 mg, q15 min PRN ondansetron, 4 mg, q8h PRN Or ondansetron, 4 mg, q8h PRN oxyCODONE, 10 mg, q4h PRN oxyCODONE, 5 mg, q4h PRN PHYSICAL EXAM: Visit Vitals BP 98/64 (BP Location: Right arm, Patient Position: Lying) Pulse 93 Temp 36.9 C (98.4 F) (Temporal) Resp 16 Ht 1.651 m (5' 5") Wt 74.8 kg (165 lb) SpO2 99% BMI 27.46 kg/m OB Status Postmenopausal BSA 1.85 m Wt Readings from Last 5 Encounters: 09/15/23 74.8 kg (165 lb) 09/15/23 79.1 kg (174 lb 6.1 oz) INTAKE/OUTPUT: I/O last 3 completed shifts: In: 1200 (16 mL/kg) [P.O.:1200] Out: 1425 (19 mL/kg) [Urine:1425 (0.5 mL/kg/hr)] Weight: 74.8 kg Physical Exam DATA: CMP: Results from last 7 days Lab Units 09/22/23 0832 09/21/23 0637 09/20/23 0644 09/19/23 1021 09/18/23 0543 09/17/23 0551 09/16/23 0654 09/15/23 2124 SODIUM mmol/L 146* 146* 144 146* 146* 147* 145 145 POTASSIUM mmol/L 4.0 3.8 3.9 3.9 3.6 3.8 3.7 4.2 CHLORIDE mmol/L 101 101 99 101 99 100 99 100 CO2 mmol/L 38* 41* 40* 35* 39* 40* 40* 39* ANION GAP mmol/L 11 8* 9* 14 12 11 10 10 BUN mg/dL 15 12 9 9 11 10 12 13 CREATININE mg/dL 0.42* 0.45* 0.51 0.40* 0.37* 0.32* 0.40* 0.45* EGFR mL/min/1.73m*2 >90 >90 >90 >90 >90 >90 >90 >90 MAGNESIUM mg/dL 2.07 2.05 2.15 2.22 1.80 2.00 2.04 2.13 ALBUMIN g/dL 2.7* 2.7* 2.9* 2.8* 2.7* 2.8* 2.9* 3.0* 3.0* ALT U/L -- -- -- -- 7 -- -- 10 AST U/L -- -- -- -- 10 -- -- 10 BILIRUBIN TOTAL mg/dL -- -- -- -- 0.4 -- -- 0.6 CBC: Results from last 7 days Lab Units 09/22/23 0832 09/21/23 0637 09/20/23 0644 09/19/23 1021 09/18/23 0543 09/17/23 0551 09/16/23 0654 09/15/232123 WBC AUTO x10*3/uL 4.7 5.0 4.3* 4.2* 4.2* 3.7* 3.4* 3.5* HEMOGLOBIN g/dL 8.0* 8.0* 8.3* 8.4* 8.0* 8.2* 8.5* 7.9* HEMATOCRIT % 27.9* 25.6* 27.7* 28.2* 26.9* 27.0* 29.3* 27.8* PLATELETS AUTO x10*3/uL 99* 88* 92* 90* 91* 88* 93* 123* MCV fL 104* 98 102* 104* 102* 101* 103* 105* COAG: Results from last 7 days Lab Units 09/19/23 1021 09/15/23 2125 INR 1.1 1.0 ABO: No results found for: "ABO" HEME/ENDO: Results from last 7 days Lab Units 09/18/23 1440 09/18/23 0543 FERRITIN ng/mL 344* -- IRON SATURATION % 20* -- HEMOGLOBIN A1C % -- 4.8 CARDIAC: Results from last 7 days Lab Units 09/19/23 1021 09/18/23 0543 BNP pg/mL 154* 144* Past Cardiology Tests (Last 3 Years): EK09/19/23 Echo: Transthoracic Echo (TTE) Complete 09/20/2023 CONCLUSIONS: 1. Left ventricular systolic function is severely decreased with a 15-20% estimated ejection fraction. 2. Echocontrast was utilized and excluded LV apical thrombus. 3. Spectral Doppler shows an impaired relaxation pattern of left ventricular diastolic filling. 4. Primary service notified of results at the time of reporting. 5. No prior echocardiogram available for comparison. 6. There is global hypokinesis of the left ventricle with minor regional variations. Prior to Admission Meds: Medications Prior to Admission Medication Sig Dispense Refill Last Dose acetaminophen (Tylenol) 325 mg tablet Take 2 tablets (650 mg) by mouth once daily at bedtime. Scheduled acetaminophen (Tylenol) 325 mg tablet Take 2 tablets (650 mg) by mouth every 4 hours if needed (elevated temp or pain). MAX 3GM/24HR acetaminophen (Tylenol) 325 mg tablet Take 2 tablets (650 mg) by mouth once daily in the morning. Scheduled bisacodyl (Dulcolax) 10 mg suppository Insert 1 suppository (10 mg) into the rectum once daily as needed for constipation. calcium carbonate (Tums) 200 mg calcium chewable tablet Chew 1 tablet (500 mg) 2 times a day. For gas/stomach pains. Give with breakfast and supper. carvedilol (Coreg) 3.125 mg tablet Take 1 tablet (3.125 mg) by mouth 2 times a day. cranberry fruit 400 mg tablet Take 1 tablet by mouth once daily. For UTI prevention cyanocobalamin (Vitamin B-12) 1,000 mcg tablet Take 1 tablet (1,000 mcg) by mouth once daily in the morning. cyanocobalamin (Vitamin B-12) 500 mcg tablet Take 1 tablet (500 mcg) by mouth once daily at bedtime. dicyclomine (Bentyl) 20 mg tablet Take 1 tablet (20 mg) by mouth every 8 hours if needed. For abdominal pain dicyclomine (Bentyl) 20 mg tablet Take 1 tablet (20 mg) by mouth 2 times a day. Scheduled estrogens, conjugated, (Premarin) vaginal cream Insert 1 applicatorful vaginally at bedtime every MON and TH, for vaginal bleeding, for 1 month. End date 10/15/23. ferrous sulfate 325 (65 Fe) MG tablet Take 1 tablet (65 mg of iron) by mouth 2 times a day. FEOSOL 200 (65 Fe) Mg Per SNF List folic acid (Folvite) 1 mg tablet Take 1 tablet (1 mg) by mouth once daily in the morning. furosemide (Lasix) 20 mg tablet Take 1 tablet (20 mg) by mouth once daily in the morning. gabapentin (Neurontin) 100 mg capsule Take 1 capsule (100 mg) by mouth 3 times a day. glimepiride (Amaryl) 1 mg tablet Take 1 tablet (1 mg) by mouth once daily in the morning. glucagon HCL (Glucagon, HCl, Emergency Kit) 1 mg recon soln Inject 1 mg as directed if needed. If blood glucose is less than 70 and non-responsive or NPO HYDROcodone-acetaminophen ([place]) 5-325 mg tablet Take 1 tablet by mouth every 6 hours if needed (moderate to severe pain). [] L. acidophilus-L. rhamnosus (Probiotic) 15 billion cell capsule Take 1 capsule by mouth once daily. For 7 days ending 09/20/23. ([facility] Ultimate Jei Probiotic 15 BILLION per SNF list) lisinopril 5 mg tablet Take 0.5 tablets (2.5 mg) by mouth once daily in the morning. 2.5 mg daily magnesium hydroxide (Milk of Magnesia) 400 mg/5 mL suspension Take 30 mL by mouth once daily as needed for constipation. [] nitrofurantoin, macrocrystal-monohydrate, (Macrobid) 100 mg capsule Take 1 capsule (100 mg) by mouth 2 times a day. For 7 days, end date 09/20/23 ondansetron (Zofran) 4 mg tablet Take 1 tablet (4 mg) by mouth every 8 hours if needed for nausea. pantoprazole (ProtoNix) 40 mg EC tablet Take 1 tablet (40 mg) by mouth once daily. Do not crush, chew, or split. phenazopyridine (Pyridium) 100 mg tablet Take 1 tablet (100 mg) by mouth every 8 hours if needed. potassium chloride CR 20 mEq ER tablet Take 1 tablet (20 mEq) by mouth once daily in the morning. Do not crush or chew. sennosides-docusate sodium (Zarina-Colace) 8.6-50 mg tablet Take 1 tablet by mouth once daily as needed for constipation. simethicone (Mylicon) 80 mg chewable tablet Chew 1 tablet (80 mg) every 6 hours if needed for flatulence. simethicone (Mylicon) 80 mg chewable tablet Chew 1 tablet (80 mg) once daily in the morning. Scheduled simvastatin (Zocor) 10 mg tablet Take 1 tablet (10 mg) by mouth once daily at bedtime. sodium phosphates (Fleet Enema) 19-7 gram/118 mL enema enema Insert 118 mL (1 enema) into the rectum once daily as needed for constipation. ASSESSMENT AND PLAN: #Newly diagnosed cardiomyopathy, EF 15-20%. Similar findings on TTE report from [place]. Currently she appears compensated. Unknown etiology currently. Large differential but includes, ischemic cardiomyopathy, long standing hypertensive cardiomyopathy or chemotherapy induced. We will need to rule out ischemia prior to surgical intervention. 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 Still being worked up by primary team, tentatively planning surgical repair in the near future. no surgery planned as of yet #Hypertension #Hyperlipidemia #COPD on 2L chronically Recommendations: Continue metoprolol succinate 12.5 mg daily Continue losartan 25 mg daily Continue spironolactone 12.5 mg daily Will plan for LHC tomorrow. Please make NPO at midnight. 5. Will follow up cath results for surgical risk stratification. PCI would require her to be on DAPT for 6 months before undergoing surgery. Will continue to follow. Discussed with HF attending, Jeovanny Lawrence DO PGY-4 Advanced Heart Failure Fellow Associated attestation - Aliza Snyder MD - 09/22/2023 4:44 PM EST I saw and evaluated the patient. I personally obtained the baeza and critical portions of the history and physical exam or was physically present for baeza and critical portions performed by the resident/fellow. I reviewed the resident/fellow's documentation and discussed the patient with the resident/fellow. I agree with the resident/fellow's medical decision making as documented in the note. Discussed with Dr Sotelo Will plan on performing a LHC tomorrow and clarify her coronary anatomy If she needs PCI and DAPT the team was ok in deferring her surgery for a few months Physical Therapy Physical Therapy Evaluation Patient Name: Poli Ramirez Today's Date: 09/22/2023 Time Calculation Start Time: 951 Stop Time: 1004 Time Calculation (min): 12 min Assessment/Plan PT Assessment PT Assessment Results: Decreased strength, Decreased endurance, Impaired balance, Decreased mobility, Pain Rehab Prognosis: Fair End of Session Communication: Bedside nurse End of Session Patient Position: Bed, 3 rail up, Alarm on IP OR SWING BED PT PLAN Inpatient or Swing Bed: Inpatient PT Plan Treatment/Interventions: Bed mobility, Transfer training, Gait training, Balance training, Neuromuscular re-education, Strengthening, Endurance training, Range of motion, Therapeutic activity, Therapeutic exercise, Positioning PT Plan: Skilled PT PT Frequency: 3 times per week PT Discharge Recommendations: Moderate intensity level of continued care PT Recommended Transfer Status: Assist x1, Assistive device PT - OK to Discharge: Yes (Evaluation completed. Discharge location recommendation made.) Subjective General Visit Information: General Reason for Referral: colovesical/colovaginal fistula and diverticulitis Past Medical History Relevant to Rehab: hypertension HTN, HLD, COPD (on 2 L nasal cannula at home), type 2 diabetes, pancytopenia Family/Caregiver Present: No Prior to Session Communication: Bedside nurse Patient Position Received: Bed, 3 rail up, Alarm on Preferred Learning Style: verbal General Comment: Pt pleasant and agreeable to PT Eval given encouragement Home Living: Home Living Type of Home: [facility] Home Adaptive Equipment: Wheelchair-manual, Walker rolling or standard Home Layout: One level Bathroom Shower/Tub: Walk-in shower Bathroom Toilet: Handicapped height Prior Level of Function: Prior Function Per Pt/Caregiver Report Level of Pitt: Needs assistance with ADLs, Needs assistance with functional transfers Receives Help From: (caregiver) ADL Assistance: Needs assistance Bath: Minimal Ambulatory Assistance: Needs assistance Transfers: Independent (indepdendent with stand pivot transfers to/from wheelchair) Gait: Minimal Prior Function Comments: Wheelchair level at baseline. Walks short distances ~25 ft with RW and min A Precautions: Precautions Medical Precautions: Abdominal precautions, Fall precautions, Oxygen therapy device and L/min Post-Surgical Precautions: Abdominal surgery precautions Objective Pain: Pain Assessment Pain Assessment: 0-10 Pain Score: 7 Pain Type: Acute pain Pain Location: Abdomen Pain Interventions: Repositioned Cognition: Cognition Overall Cognitive Status: Within Functional Limits Attention: Within Functional Limits Activity Tolerance Endurance: Tolerates 10 - 20 min exercise with multiple rests Static Sitting Balance Static Sitting-Balance Support: Bilateral upper extremity supported Static Sitting-Level of Assistance: Minimum assistance Dynamic Sitting Balance Dynamic Sitting-Balance Support: Feet supported, Left upper extremity supported Dynamic Sitting-Balance: Reaching for objects Dynamic Sitting-Comments: Min A Static Standing Balance Static Standing-Balance Support: Bilateral upper extremity supported Static Standing-Level of Assistance: Moderate assistance Static Standing-Comment/Number of Minutes: RW Dynamic Standing Balance Dynamic Standing-Balance Support: Bilateral upper extremity supported Dynamic Standing-Balance: Reaching for objects Dynamic Standing-Comments: unable to perform. Increased reliance on BUE support Functional Assessments: Bed Mobility Bed Mobility: Yes Bed Mobility 1 Bed Mobility 1: Supine to sitting (via log roll) Level of Assistance 1: Minimum assistance Bed Mobility 2 Bed Mobility 2: Sitting to supine (via reverse log roll) Level of Assistance 2: Moderate assistance Transfers Transfer: Yes Transfer 1 Transfer From 1: Sit to Transfer to 1: Stand Transfer Device 1: Walker Transfer Level of Assistance 1: Moderate assistance Trials/Comments 1: Increased time spent in anterior weight shift Transfers 2 Transfer From 2: Stand to Transfer to 2: Sit Transfer Device 2: Walker Transfer Level of Assistance 2: Moderate assistance Ambulation/Gait Training Ambulation/Gait Training Performed: No (Unable to perform side steps. Patient reproted increased pain and fatigue in standing ~1 minute) Extremity/Trunk Assessments: RUE RUE : (RUE grossly at least 3/5) LUE LUE: (LUE grossly at least 3/5) RLE RLE : (hip flexion 3-/5, Knee extension and ankle DF 4/5) LLE LLE : (hip flexion 3-/5, Knee extension and ankle DF 4/5) Outcome Measures: [facility] Basic Mobility Turning from your back to your side while in a flat bed without using bedrails: A lot Moving from lying on your back to sitting on the side of a flat bed without using bedrails: A little Moving to and from bed to chair (including a wheelchair): A little Standing up from a chair using your arms (e.g. wheelchair or bedside chair): A lot To walk in hospital room: Total Climbing 3-5 steps with railing: Total Basic Mobility - Total Score: 12 Encounter Problems Encounter Problems (Active) Mobility STG - Patient will ambulate>/= 30 ft with RW and min A (Progressing) Start: 09/22/23 Expected End: 10/06/23 Transfers STG - Transfer from bed to chair mod I with RW (Progressing) Start: 09/22/23 Expected End: 10/06/23 STG - Patient will perform bed mobility mod I (Progressing) Start: 09/22/23 Expected End: 10/06/23 STG - Patient will transfer sit to and from stand mod I with RW (Progressing) Start: 09/22/23 Expected End: 10/06/23 Education Documentation Precautions, taught by Torrie Arellano PT at 09/22/2023 1:31 PM. Learner: Patient Readiness: Acceptance Method: Explanation, Demonstration Response: Verbalizes Understanding Comment: Educated on abdominal precautions Education Comments No comments found. Poli Ramirez is a 72 y.o. female on day 8 of admission presenting with Colovaginal fistula. SW briefly met with pt about discharge needs. Pt lives at the [facility] in [place], [place]. Pt can discharge in the next few days. Facility notified through [facility]. SW will follow and assist as needed. SYDNEY Seth. Occupational Therapy Evaluation/Treatment Patient Name: Poli Ramirez : 1950 Today's Date: 09/22/23 Time Calculation Start Time: 853 Stop Time: 917 Time Calculation (min): 24 min Assessment: OT Assessment: Limited by standing balance, functional strength, and activity tolerance deficits. Benefits from use of FWW to maximize safety. Pt typically uses w/c at baseline Prognosis: Fair Barriers to Discharge: None Evaluation/Treatment Tolerance: Patient tolerated treatment well Medical Staff Made Aware: Yes End of Session Communication: Bedside nurse End of Session Patient Position: Up in chair, Alarm off, not on at start of session OT Assessment Results: Decreased ADL status, Decreased upper extremity strength, Decreased safe judgment during ADL, Decreased endurance, Decreased functional mobility Prognosis: Fair Barriers to Discharge: None Evaluation/Treatment Tolerance: Patient tolerated treatment well Medical Staff Made Aware: Yes Strengths: Capable of completing ADLs semi/independent, Attitude of self Barriers to Participation: Support of Caregivers Plan: Treatment Interventions: ADL retraining, Functional transfer training, UE strengthening/ROM, Endurance training, Equipment evaluation/education, Patient/family training, Compensatory technique education OT Frequency: 2 times per week OT Discharge Recommendations: Low intensity level of continued care (Return to fpc with Low intensity therapy services) OT Recommended Transfer Status: Minimal assist, Assist of 1 OT - OK to Discharge: Yes Treatment Interventions: ADL retraining, Functional transfer training, UE strengthening/ROM, Endurance training, Equipment evaluation/education, Patient/family training, Compensatory technique education Subjective Current Problem: 1. Colovaginal fistula Transthoracic Echo (TTE) Complete Transthoracic Echo (TTE) Complete 2. Acquired thrombocytopenia (CMS/HCC) Vascular US abdomen/pelvis duplex complete Vascular US abdomen/pelvis duplex complete 3. Encounter for preprocedural cardiovascular examination Transthoracic Echo (TTE) Complete 4. Dilated cardiomyopathy (CMS/HCC) General: OT Received On: 09/22/23 General Reason for Referral: colovesical/colovaginal fistula and diverticulitis Past Medical History Relevant to Rehab: hypertension HTN, HLD, COPD (on 2 L nasal cannula at home), type 2 diabetes, pancytopenia Family/Caregiver Present: No Prior to Session Communication: Bedside nurse Patient Position Received: Bed, 3 rail up, Alarm off, not on at start of session Preferred Learning Style: verbal General Comment: Pt pleasant and agreeable to therapy session Precautions: Medical Precautions: Abdominal precautions, Oxygen therapy device and L/min (2L O2) Post-Surgical Precautions: Abdominal surgery precautions Vital Signs: Pain: Pain Assessment Pain Assessment: 0-10 Pain Score: 4 Pain Type: Acute pain Pain Location: Abdomen Pain Orientation: Left Pain Frequency: Constant/continuous Objective Cognition: Overall Cognitive Status: Within Functional Limits Attention: Within Functional Limits Home Living: Type of Home: Custodial facility Lives With: Alone Home Adaptive Equipment: Wheelchair-manual, Walker rolling or standard Home Layout: One level Home Access: No concerns Bathroom Shower/Tub: Walk-in shower Bathroom Toilet: Handicapped height Bathroom Equipment: Grab bars in shower, Built-in shower seat, Grab bars around toilet Home Living Comments: Living in fpc Prior Function: Level of Pitt: Needs assistance with ADLs, Needs assistance with functional transfers Receives Help From: (Caregivers) ADL Assistance: Needs assistance Bath: Minimal Homemaking Assistance: Needs assistance Meal Prep: Total Laundry: Total Cleaning: Total Driving/Transportation: Total Homemaking Assistance Comments: Staff completes IADLs Ambulatory Assistance: Needs assistance Transfers: Minimal Prior Function Comments: Uses w/c at baseline, reports walking short distances with FWW IADL History: Homemaking Responsibilities: No Occupation: Retired Leisure and Hobbies: Watching TV, reading, cross word puzzles ADL: Eating Assistance: Independent (Anticipated) Grooming Assistance: Minimal (Anticipated) Bathing Assistance: Minimal (Anticipated) UE Dressing Assistance: Minimal UE Dressing Deficit: Setup, Supervision/safety LE Dressing Assistance: Stand by LE Dressing Deficit: Supervision/safety, Verbal cueing Toileting Assistance with Device: Minimal Toileting Deficit: Steadying, Verbal cueing, Bedside commode Activities of Daily Living: LE Dressing LE Dressing: Yes Sock Level of Assistance: Close supervision LE Dressing Comments: Education provided on use of figure four technique for managing LE clothing, discussed abdomnial precautions and home safety Toileting Toileting Level of Assistance: Minimum assistance Where Assessed: Bedside commode Toileting Comments: Min A for transfer to [facility], education on safe positioning provided. Min A for hygiene while standing with CGA for balance. Activity Tolerance: Endurance: Tolerates 10 - 20 min exercise with multiple rests Functional Standing Tolerance: Bed Mobility/Transfers: Bed Mobility Bed Mobility: Yes Bed Mobility 1 Bed Mobility 1: Supine to sitting Level of Assistance 1: Minimum assistance, Minimal verbal cues Bed Mobility Comments 1: Edcuation provided on log roll technique to maintain abdominal precautions, Min cueing throughout for reinforcement Transfers Transfer: Yes Transfer 1 Transfer From 1: Bed to Transfer to 1: Commode-standard Technique 1: Stand pivot Transfer Device 1: Walker Transfer Level of Assistance 1: Minimum assistance, Minimal verbal cues Trials/Comments 1: Education on pushing up from bed and improving standing positioning to maximize safety/balance, cueing to reach back for arms of BSC Transfers 2 Transfer From 2: Commode-standard to Transfer to 2: Chair with arms Technique 2: Stand pivot Transfer Device 2: Walker Transfer Level of Assistance 2: Minimum assistance, Minimal verbal cues Trials/Comments 2: Cueing to maintain proper positoining to maximize overall safety, cues to reach back to arm rests of chair Sitting Balance: Static Sitting Balance Static Sitting-Balance Support: No upper extremity supported Static Sitting-Level of Assistance: Distant supervision Standing Balance: Static Standing Balance Static Standing-Balance Support: Bilateral upper extremity supported Static Standing-Level of Assistance: Contact guard Static Standing-Comment/Number of Minutes: Support on FWW Dynamic Standing Balance Dynamic Standing-Balance Support: Bilateral upper extremity supported Dynamic Standing-Comments: Min A during dynamic transfers using FWW Vision:Vision - Basic Assessment Current Vision: Wears glasses only for reading Sensation: Light Touch: No apparent deficits Strength: Strength Comments: 4/5 grossly Other Activity: Perception: Inattention/Neglect: Appears intact Coordination: Movements are Fluid and Coordinated: Yes Hand Function: Hand Function Gross Grasp: Functional Coordination: Functional Extremities: RUE RUE : Within Functional Limits and LUE LUE: Within Functional Limits Outcome Measures: [facility] Daily Activity Putting on and taking off regular lower body clothing: A little Bathing (including washing, rinsing, drying): A little Putting on and taking off regular upper body clothing: A little Toileting, which includes using toilet, bedpan or urinal: A little Taking care of personal grooming such as brushing teeth: A little Eating Meals: None Daily Activity - Total Score: 19 and Brief Confusion Assessment Method (bCAM) Feature 1: Altered Mental Status or Fluctuating Course: No CAM Result: CAM - Education Documentation ADL Training, taught by Corey Dale OT at 09/22/2023 11:30 AM. Learner: Patient Readiness: Acceptance Method: Explanation, Demonstration Response: Verbalizes Understanding, Needs Reinforcement Education Comments No comments found. Goals: Encounter Problems Encounter Problems (Active) ADLs Patient will perform UB and LB sponge bath with modified independent level of assistance and long-handled sponge. (Progressing) Start: 09/22/23 Expected End: 10/13/23 Patient with complete lower body dressing with modified independent level of assistance donning and doffing pants without a zipper/fasteners with PRN adaptive equipment while edge of bed (Progressing) Start: 09/22/23 Expected End: 10/13/23 Patient will complete daily grooming tasks brushing teeth and washing face/hair with modified independent level of assistance and PRN adaptive equipment while standing. (Progressing) Start: 09/22/23 Expected End: 10/13/23 Patient will complete toileting including hygiene clothing management/hygiene with modified independent level of assistance and bedside commode. (Progressing) Start: 09/22/23 Expected End: 10/13/23 BALANCE Pt will maintain dynamic standing balance during ADL task with supervision level of assistance in order to demonstrate decreased risk of falling and improved postural control. (Progressing) Start: 09/22/23 Expected End: 10/13/23 EXERCISE/STRENGTHENING Patient with increase BUE to 5/5 strength. (Progressing) Start: 09/22/23 Expected End: 10/13/23 MOBILITY Patient will perform Functional mobility Household distances/Community Distances with supervision level of assistance and least restrictive device in order to improve safety and functional mobility. (Progressing) Start: 09/22/23 Expected End: 10/13/23 COREY DALE OT Images from the original note were not included. 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 HPI: 72-year-old female with past medical history significant for hypertension on Lasix and lisinopril, hyperlipidemia, COPD (on 2 L nasal cannula at home), type 2 diabetes (not on insulin at home), left breast cancer status post lumpectomy, pancytopenia, open cholecystectomy and appendectomy who presented as a transfer from [facility] due to left lower quadrant abdominal pain suspicious for colovesical/colovaginal fistula and diverticulitis on CT. Subjective MRI showed diverticulits, abscess w/ fistula, fibroids HF rec medical therapy and cath prior to surgery; cath Tuesday- NPO @midnight Pain well controlled Nausea none , has not vomited Passing gas Voiding via barnes catheter, mucus/sediment from catheter OOB, ambulating Objective Physical Exam: Gen: in no apparent distress Resp: has a normal respiratory effort and on home 2L O2 Abd: Abdomen is soft and mildly tender to palpation in LLQ . nondistended : barnes in place, draining sediment/ mucus, clear light pink tinged urine Skin: Warm and dry Extremities: Warm and dry, no edema. I/O last 3 completed shifts: In: 1200 (16 mL/kg) [P.O.:1200] Out: 1425 (19 mL/kg) [Urine:1425 (0.5 mL/kg/hr)] Weight: 74.8 kg No intake/output data recorded. Data Review: CBC: Lab Results Component Value Date WBC 5.0 09/21/2023 RBC 2.62 (L) 09/21/2023 BMP: Lab Results Component Value Date GLUCOSE 140 (H) 09/21/2023 CO2 41 (HH) 09/21/2023 BUN 12 09/21/2023 CREATININE 0.45 (L) 09/21/2023 CALCIUM 8.3 (L) 09/21/2023 Coagulation: Lab Results Component Value Date INR 1.1 09/19/2023 APTT 32 09/19/2023 Imaging: Diverticulitis with inflammation of bladder, no discrete fistula or air in the bladder per this MD read of OSH CT 09/15/23 Assessment: This is a 72-year-old female with past medical history significant for hypertension HTN, HLD, COPD (on 2 L nasal cannula at home), type 2 diabetes, pancytopenia who presented as a transfer from [facility] due to left lower quadrant abdominal pain suspicious for colovesical/colovaginal fistula and diverticulitis on CT. Physical exam and imaging is suspicious for fistula. Plan: Neuro: Continue current pain regimen with IV pain meds (diaudid PRN) Resp: Home O2 2L, ICS Card: continue home coreg, HF recs: losartan, spironolactone, meto succinate FEN: HLIV GI: Carb controlled diet with sliding scale insulin Glucerna shakes tid LFTs, prealbumin NPO @midnight for heart cath (09/23) : Monitor UOP and maintain barnes [employer] onc consulted for vaginal bleeding, appreciate recs Ucx: e.fecium, awaiting sensitivities Heme/ID: Daily labs. Continue rocephin/flagyl Ppy: Lovenox 40mg daily, SCDs Special: Okay for shower Dispo: Continue care on RNF. Patient seen by and plans discussed with staff, Dr. Sotelo. Kang Julian MD Colorectal [facility] Pager [phone] Images from the original note were not included. 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 HPI: 72-year-old female with past medical history significant for hypertension on Lasix and lisinopril, hyperlipidemia, COPD (on 2 L nasal cannula at home), type 2 diabetes (not on insulin at home), left breast cancer status post lumpectomy, pancytopenia, open cholecystectomy and appendectomy who presented as a transfer from [facility] due to left lower quadrant abdominal pain suspicious for colovesical/colovaginal fistula and diverticulitis on CT. Subjective [employer] Onc on board for vaginal bleeding, awaiting MRI and endometrial biopsy Ucx today given increasing sediment in barnes- pending Poor heart function on echo, HF team consulted Pain well controlled Nausea none , has not vomited Passing gas Voiding via barnes catheter, increasing sediment from catheter OOB, ambulating Objective Physical Exam: Gen: in no apparent distress Resp: has a normal respiratory effort and on home 2L O2 Abd: Abdomen is soft and mildly tender to palpation in LLQ . nondistended Skin: Warm and dry Extremities: Warm and dry, no edema. I/O last 3 completed shifts: In: 916 (12.2 mL/kg) [P.O.:600; I.V.:166 (2.2 mL/kg); IV Piggyback:150] Out: 1925 (25.7 mL/kg) [Urine:1925 (0.7 mL/kg/hr)] Weight: 74.8 kg I/O this shift: In: - Out: 250 [Urine:250] Data Review: CBC: Lab Results Component Value Date WBC 5.0 09/21/2023 RBC 2.62 (L) 09/21/2023 BMP: Lab Results Component Value Date GLUCOSE 140 (H) 09/21/2023 CO2 41 (HH) 09/21/2023 BUN 12 09/21/2023 CREATININE 0.45 (L) 09/21/2023 CALCIUM 8.3 (L) 09/21/2023 Coagulation: Lab Results Component Value Date INR 1.1 09/19/2023 APTT 32 09/19/2023 Imaging: Diverticulitis with inflammation of bladder, no discrete fistula or air in the bladder per this MD read of OSH CT 09/15/23 Assessment: This is a 72-year-old female with past medical history significant for hypertension HTN, HLD, COPD (on 2 L nasal cannula at home), type 2 diabetes, pancytopenia who presented as a transfer from [facility] due to left lower quadrant abdominal pain suspicious for colovesical/colovaginal fistula and diverticulitis on CT. Physical exam and imaging is suspicious for fistula. Plan: Neuro: Continue current pain regimen with IV pain meds (diaudid PRN) Resp: Home O2 2L, ICS Card: continue home coreg, holding lisinopril and lasix FEN: HLIV GI: Carb controlled diet with sliding scale insulin and Glucerna shakes tid, CEA normal, LFTs, prealbumin- NPO for MRI today : Monitor UOP and maintain barnes [employer] onc consulted for vaginal bleeding, appreciate recs MRI pelvis ordered Ucx Heme/ID: Daily labs. Continue rocephin/flagyl Ppy: Lovenox 40mg daily, SCDs Special: Okay for shower Dispo: Continue care on RNF. Patient seen by and plans discussed with staff, Dr. Sotelo. Jesus Newman, DO Colorectal [facility] Pager [phone] 09/20/23 1627 Discharge Planning Living Arrangements Other (Comment) (USP) Support Systems Children Type of Residence [facility]P/residential care Patient expects to be discharged to: Return to [facility] in [place], [place] Does the patient need discharge transport arranged? Yes RoundTrip coordination needed? Yes Has discharge transport been arranged? No Financial Resource Strain How hard is it for you to pay for the very basics like food, housing, medical care, and heating? Not hard Housing Stability In the last 12 months, was there a time when you were not able to pay the mortgage or rent on time? N In the last 12 months, how many places have you lived? 1 Transportation Needs In the past 12 months, has lack of transportation kept you from medical appointments or from getting medications? no In the past 12 months, has lack of transportation kept you from meetings, work, or from getting things needed for daily living? No Patient Choice Patient / Family choosing to utilize agency / facility established prior to hospitalization Yes Pt with diverticulitis was admitted for a colovesical/colovaginal fistuala. She resides at [facility] in [place], [place]. She would like to return there when ready for discharge. She will need a ride there through roundtrip. She is on 02 at baseline. Her daughter, Jocy, is her main support. Images from the original note were not included. 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 HPI: 72-year-old female with past medical history significant for hypertension on Lasix and lisinopril, hyperlipidemia, COPD (on 2 L nasal cannula at home), type 2 diabetes (not on insulin at home), left breast cancer status post lumpectomy, pancytopenia, open cholecystectomy and appendectomy who presented as a transfer from [facility] due to left lower quadrant abdominal pain suspicious for colovesical/colovaginal fistula and diverticulitis on CT. Subjective [employer] Onc on board for vaginal bleeding, awaiting MRI and endometrial biopsy Ucx today given increasing sediment in barnes Perioperative medicine rec multiple studies for thrombocytopenia, pre-op workup- results unremarkable thus far Pain well controlled Nausea none , has not vomited Passing gas Voiding via barnes catheter, increasing sediment from catheter OOB, ambulating Objective Physical Exam: Gen: in no apparent distress Resp: has a normal respiratory effort and on home 2L O2 Abd: Abdomen is soft and mildly tender to palpation in LLQ . nondistended Skin: Warm and dry Extremities: Warm and dry, no edema. I/O last 3 completed shifts: In: 737.3 (9.9 mL/kg) [P.O.:120; I.V.:217.3 (2.9 mL/kg); IV Piggyback:400] Out: 1550 (20.7 mL/kg) [Urine:1550 (0.6 mL/kg/hr)] Weight: 74.8 kg I/O this shift: In: - Out: 325 [Urine:325] Data Review: CBC: Lab Results Component Value Date WBC 4.3 (L) 09/20/2023 RBC 2.71 (L) 09/20/2023 BMP: Lab Results Component Value Date GLUCOSE 117 (H) 09/20/2023 CO2 40 (HH) 09/20/2023 BUN 9 09/20/2023 CREATININE 0.51 09/20/2023 CALCIUM 8.7 09/20/2023 Coagulation: Lab Results Component Value Date INR 1.1 09/19/2023 APTT 32 09/19/2023 Imaging: Diverticulitis with inflammation of bladder, no discrete fistula or air in the bladder per this MD read of OSH CT 09/15/23 Assessment: This is a 72-year-old female with past medical history significant for hypertension HTN, HLD, COPD (on 2 L nasal cannula at home), type 2 diabetes, pancytopenia who presented as a transfer from [facility] due to left lower quadrant abdominal pain suspicious for colovesical/colovaginal fistula and diverticulitis on CT. Physical exam and imaging is suspicious for fistula. Plan: Neuro: Continue current pain regimen with IV pain meds (diaudid PRN) Resp: Home O2 2L, ICS Card: continue home coreg, holding lisinopril and lasix FEN: HLIV GI: Carb controlled diet with sliding scale insulin and Glucerna shakes tid, CEA normal, LFTs, prealbumin : Monitor UOP and maintain barnes [employer] onc consulted for vaginal bleeding, appreciate recs MRI pelvis ordered Ucx today Heme/ID: Daily labs. Continue rocephin/flagyl Ppy: Lovenox 40mg daily, SCDs Special: Okay for shower Dispo: Continue care on RNF. Patient seen by and plans discussed with staff, Dr. Sotelo. Kang Julian MD Colorectal [facility] Pager [phone] Images from the original note were not included. 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 HPI: 72-year-old female with past medical history significant for hypertension on Lasix and lisinopril, hyperlipidemia, COPD (on 2 L nasal cannula at home), type 2 diabetes (not on insulin at home), left breast cancer status post lumpectomy, pancytopenia, open cholecystectomy and appendectomy who presented as a transfer from [facility] due to left lower quadrant abdominal pain suspicious for colovesical/colovaginal fistula and diverticulitis on CT. Subjective No acute events overnight. Pain well controlled Nausea none , has not vomited Passing gas Voiding via barnes catheter OOB, ambulating Objective Physical Exam: Gen: in no apparent distress Resp: has a normal respiratory effort and on home 2L O2 Abd: Abdomen is soft and mildly tender to palpation in LLQ . nondistended Skin: Warm and dry Extremities: Warm and dry, no edema. I/O last 3 completed shifts: In: 1070 (14.3 mL/kg) [P.O.:720; IV Piggyback:350] Out: 1526 (20.4 mL/kg) [Urine:1525 (0.6 mL/kg/hr); Stool:1] Weight: 74.8 kg I/O this shift: In: - Out: 225 [Urine:225] Data Review: CBC: Lab Results Component Value Date WBC 4.2 (L) 09/18/2023 RBC 2.64 (L) 09/18/2023 BMP: Lab Results Component Value Date GLUCOSE 99 09/18/2023 CO2 39 (H) 09/18/2023 BUN 11 09/18/2023 CREATININE 0.37 (L) 09/18/2023 CALCIUM 8.6 09/18/2023 Coagulation: No results found for: "INR", APTT Imaging: Diverticulitis with inflammation of bladder, no discrete fistula or air in the bladder per this MD read of OSH CT 09/15/23 Assessment: This is a 72-year-old female with past medical history significant for hypertension HTN, HLD, COPD (on 2 L nasal cannula at home), type 2 diabetes, pancytopenia who presented as a transfer from [facility] due to left lower quadrant abdominal pain suspicious for colovesical/colovaginal fistula and diverticulitis on CT. Physical exam and imaging (review radiology) is suspicious for fistula. Awaiting further cscope vs flex sig recs. Perioperative medicine consulted Plan: Neuro: Continue current pain regimen with IV pain meds (diaudid PRN) Resp: Home O2 2L, ICS Card: continue home coreg, holding lisinopril and lasix FEN: HLIV GI: Carb controlled diet with sliding scale insulin and Glucerna shakes tid, CEA normal, LFTs, prealbumin : Monitor UOP and maintain barnes Heme/ID: Daily labs. Continue broad-spectrum antibiotics. Coags tomorrow Ppy: Lovenox 40mg daily, SCDs Special: Okay for shower Dispo: Continue care on RNF. Patient seen by and plans discussed with staff, Dr. Sotelo. Kang Julian MD Colorectal [facility] Pager [phone] Images from the original note were not included. 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 HPI: 72-year-old female with past medical history significant for hypertension on Lasix and lisinopril, hyperlipidemia, COPD (on 2 L nasal cannula at home), type 2 diabetes (not on insulin at home), left breast cancer status post lumpectomy, pancytopenia, open cholecystectomy and appendectomy who presented as a transfer from [facility] due to left lower quadrant abdominal pain suspicious for colovesical/colovaginal fistula and diverticulitis on CT. Subjective No acute events overnight. Pain well controlled Nausea none , has not vomited Passing gas Voiding via barnes catheter OOB, ambulating Objective Physical Exam: Gen: in no apparent distress Resp: has a normal respiratory effort and on home 2L O2 Abd: Abdomen is soft and mildly tender to palpation in LLQ . nondistended Skin: Warm and dry Extremities: Warm and dry, no edema. I/O last 3 completed shifts: In: 2484.2 (33.2 mL/kg) [P.O.:300; I.V.:4.2 (27.8 mL/kg); IV Piggyback:100] Out: 2074 (27.7 mL/kg) [Urine:2074 (0.8 mL/kg/hr)] Weight: 74.8 kg I/O this shift: In: - Out: 101 [Urine:100; Stool:1] Data Review: CBC: Lab Results Component Value Date WBC 4.2 (L) 09/18/2023 RBC 2.64 (L) 09/18/2023 BMP: Lab Results Component Value Date GLUCOSE 99 09/18/2023 CO2 39 (H) 09/18/2023 BUN 11 09/18/2023 CREATININE 0.37 (L) 09/18/2023 CALCIUM 8.6 09/18/2023 Coagulation: Lab Results Component Value Date INR 1.0 09/15/2023 APTT 24 (L) 09/15/2023 Imaging: Diverticulitis with inflammation of bladder, no discrete fistula or air in the bladder per this MD read of OSH CT 09/15/23 Assessment: This is a 72-year-old female with past medical history significant for hypertension HTN, HLD, COPD (on 2 L nasal cannula at home), type 2 diabetes, pancytopenia who presented as a transfer from [facility] due to left lower quadrant abdominal pain suspicious for colovesical/colovaginal fistula and diverticulitis on CT. Physical exam and imaging (review radiology) is suspicious for fistula. Will continue work on medical optimization and acquiring outside hospital colonoscopy results for further work-up. Will re-engage Dr. Apple for optimization, appreciate reccs (pt has hx of pancytopenia, COPD, poor nutritional status, as detailed above). Plan: Neuro: Continue current pain regimen with IV pain meds (diaudid PRN) Resp: Home O2 2L, ICS Card: continue home coreg, holding lisinopril and lasix FEN: HLIV GI: Carb controlled diet with sliding scale insulin and Glucerna shakes tid, CEA normal, LFTs, prealbumin : Monitor UOP and maintain barnes Heme/ID: Daily labs. Continue broad-spectrum antibiotics. Coags tomorrow Ppy: Lovenox 40mg daily, SCDs Special: Okay for shower Dispo: Continue care on RNF. Patient seen by and plans discussed with staff, Dr. Sotelo. Fran Brenner MD Colorectal [facility] Pager [phone] Images from the original note were not included. 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 HPI: 72-year-old female with past medical history significant for hypertension on Lasix and lisinopril, hyperlipidemia, COPD (on 2 L nasal cannula at home), type 2 diabetes (not on insulin at home), left breast cancer status post lumpectomy, pancytopenia, open cholecystectomy and appendectomy who presented as a transfer from [facility] due to left lower quadrant abdominal pain suspicious for colovesical/colovaginal fistula and diverticulitis on CT. Subjective No acute events overnight. Pain well controlled Nausea none , has not vomited Passing gas Voiding via barnes catheter Has not ambulated Objective Physical Exam: Gen: in no apparent distress Resp: has a normal respiratory effort and on home 2L O2 Abd: Abdomen is soft and mildly tender to palpation in LLQ . Skin: Warm and dry Extremities: Warm and dry, no edema. I/O last 3 completed shifts: In: 833.3 (11.1 mL/kg) [I.V.:683.3 (9.1 mL/kg); IV Piggyback:150] Out: 1350 (18 mL/kg) [Urine:1350 (0.5 mL/kg/hr)] Weight: 74.8 kg I/O this shift: In: 2024.2 [P.O.:300; I.V.:1724.2] Out: 850 [Urine:850] Data Review: CBC: Lab Results Component Value Date WBC 3.4 (L) 09/16/2023 RBC 2.84 (L) 09/16/2023 BMP: Lab Results Component Value Date GLUCOSE 88 09/16/2023 CO2 40 (HH) 09/16/2023 BUN 12 09/16/2023 CREATININE 0.40 (L) 09/16/2023 CALCIUM 8.8 09/16/2023 Coagulation: Lab Results Component Value Date INR 1.0 09/15/2023 APTT 24 (L) 09/15/2023 Imaging: Diverticulitis with inflammation of bladder, no discrete fistula or air in the bladder per this MD read of OSH CT 09/15/23 Assessment: This is a 72-year-old female with past medical history significant for hypertension HTN, HLD, COPD (on 2 L nasal cannula at home), type 2 diabetes, pancytopenia who presented as a transfer from [facility] due to left lower quadrant abdominal pain suspicious for colovesical/colovaginal fistula and diverticulitis on CT. Physical exam and imaging (review radiology) is suspicious for fistula. Will work on medical optimization and acquiring outside hospital colonoscopy results for further work-up. Will engage Dr. Apple for optimization, appreciate [facility]. Plan: Neuro: Continue current pain regimen with IV pain meds (diaudid PRN) Resp: Home O2 2L, ICS Card: continue home coreg, holding lisinopril and lasix FEN: HLIV GI: Carb controlled diet with sliding scale insulin, CEA normal : Monitor UOP and maintain barnes Heme/ID: Daily labs. Continue broad-spectrum antibiotics. Ppy: Lovenox 40mg daily, SCDs Dispo: Continue care on RNF. Patient seen and plans discussed with staff, Dr. Sotelo. Michelle Hendrickson MD Colorectal [facility] Pager [phone] Pharmacy Medication History Review Poli Ramirez is a 72 y.o. female admitted for Colovaginal fistula. [employer] Medication List has been updated as appears on Order Summary Report from [facility], [facility]. 09/14/23, 21:31:04 ET. The list below reflects the updated [employer] list. Please review each medication in order reconciliation for additional clarification and justification. Medications Prior to Admission Medication Sig acetaminophen (Tylenol) 325 mg tablet Take 2 tablets (650 mg) by mouth once daily at bedtime. Scheduled acetaminophen (Tylenol) 325 mg tablet Take 2 tablets (650 mg) by mouth every 4 hours if needed (elevated temp or pain). MAX 3GM/24HR acetaminophen (Tylenol) 325 mg tablet Take 2 tablets (650 mg) by mouth once daily in the morning. Scheduled bisacodyl (Dulcolax) 10 mg suppository Insert 1 suppository (10 mg) into the rectum once daily as needed for constipation. calcium carbonate (Tums) 200 mg calcium chewable tablet Chew 1 tablet (500 mg) 2 times a day. For gas/stomach pains. Give with breakfast and supper. carvedilol (Coreg) 3.125 mg tablet Take 1 tablet (3.125 mg) by mouth 2 times a day. cranberry fruit 400 mg tablet Take 1 tablet by mouth once daily. For UTI prevention cyanocobalamin (Vitamin B-12) 1,000 mcg tablet Take 1 tablet (1,000 mcg) by mouth once daily in the morning. cyanocobalamin (Vitamin B-12) 500 mcg tablet Take 1 tablet (500 mcg) by mouth once daily at bedtime. dicyclomine (Bentyl) 20 mg tablet Take 1 tablet (20 mg) by mouth every 8 hours if needed. For abdominal pain dicyclomine (Bentyl) 20 mg tablet Take 1 tablet (20 mg) by mouth 2 times a day. Scheduled estrogens, conjugated, (Premarin) vaginal cream Insert 1 applicatorful vaginally at bedtime every TUE and , for vaginal bleeding, for 1 month. End date 10/15/23. ferrous sulfate 325 (65 Fe) MG tablet Take 1 tablet (65 mg of iron) by mouth 2 times a day. FEOSOL 200 (65 Fe) Mg Per SNF List folic acid (Folvite) 1 mg tablet Take 1 tablet (1 mg) by mouth once daily in the morning. furosemide (Lasix) 20 mg tablet Take 1 tablet (20 mg) by mouth once daily in the morning. gabapentin (Neurontin) 100 mg capsule Take 1 capsule (100 mg) by mouth 3 times a day. glimepiride (Amaryl) 1 mg tablet Take 1 tablet (1 mg) by mouth once daily in the morning. glucagon HCL (Glucagon, HCl, Emergency Kit) 1 mg recon soln Inject 1 mg as directed if needed. If blood glucose is less than 70 and non-responsive or NPO HYDROcodone-acetaminophen ([place]) 5-325 mg tablet Take 1 tablet by mouth every 6 hours if needed (moderate to severe pain). L. acidophilus-L. rhamnosus (Probiotic) 15 billion cell capsule Take 1 capsule by mouth once daily. For 7 days ending 09/20/23. (RENEWLIFE Ultimate Jie Probiotic 15 BILLION per SNF list) lisinopril 5 mg tablet Take 0.5 tablets (2.5 mg) by mouth once daily in the morning. 2.5 mg daily magnesium hydroxide (Milk of Magnesia) 400 mg/5 mL suspension Take 30 mL by mouth once daily as needed for constipation. nitrofurantoin, macrocrystal-monohydrate, (Macrobid) 100 mg capsule Take 1 capsule (100 mg) by mouth 2 times a day. For 7 days, end date 09/20/23 ondansetron (Zofran) 4 mg tablet Take 1 tablet (4 mg) by mouth every 8 hours if needed for nausea. pantoprazole (ProtoNix) 40 mg EC tablet Take 1 tablet (40 mg) by mouth once daily. Do not crush, chew, or split. phenazopyridine (Pyridium) 100 mg tablet Take 1 tablet (100 mg) by mouth every 8 hours if needed. potassium chloride CR 20 mEq ER tablet Take 1 tablet (20 mEq) by mouth once daily in the morning. Do not crush or chew. sennosides-docusate sodium (Zarina-Colace) 8.6-50 mg tablet Take 1 tablet by mouth once daily as needed for constipation. simethicone (Mylicon) 80 mg chewable tablet Chew 1 tablet (80 mg) every 6 hours if needed for flatulence. simethicone (Mylicon) 80 mg chewable tablet Chew 1 tablet (80 mg) once daily in the morning. Scheduled simvastatin (Zocor) 10 mg tablet Take 1 tablet (10 mg) by mouth once daily at bedtime. sodium phosphates (Fleet Enema) 19-7 gram/118 mL enema enema Insert 118 mL (1 enema) into the rectum once daily as needed for constipation. The list below reflects the updated allergy list. Please review each documented allergy for additional clarification and justification. Allergies Reviewed by Gina Rush MD on 09/15/2023 Severity Reactions Comments Flexeril [cyclobenzaprine] Not Specified Unknown Zanaflex [tizanidine] Not Specified Unknown Derrick Arriola, [place], [facility] Transitions of Care Pharmacist Medication reconciliation complete Please reach out via [email or web address] for questions, or if no response call [employer] or [employer]. Meds Ambulatory and Retail Services documented in this encounter [facility] Work Phone: 09-27-2023 Hospital course Narrative Discharge Diagnosis Colovaginal fistula Issues Requiring Follow-Up Test Results Pending At Discharge Pending Labs No current pending labs. Hospital Course Poli Ramirez is a 72 year old female with a past medical history significant for hypertension on Lasix and lisinopril, hyperlipidemia, COPD (on 2 L nasal cannula at home), type 2 diabetes (not on insulin at home), left breast cancer status post lumpectomy, pancytopenia, open cholecystectomy and appendectomy who presented as a transfer from [facility] with left lower quadrant abdominal pain suspicious for colovesical/colovaginal fistula and diverticulitis on CT. A Pelvic MRI was completed confirming sigmoid diverticulitis and associated abscess abutting superior bladder with development of colovesical fistula. ID was consulted to assist with antibiotic management in the interval until surgery. She will discharge on Augmentin bid. Perioperative medicine and Cardiology were also consulted to optimize her for surgery in the setting of her cardiac issues. A CT angio coronary art study was completed and her heart medications were adjusted. She will discharge back to her home facility and follow up in approximately 2 weeks to clinic for surgical planning. Pertinent Physical Exam At Time of Discharge Physical Exam Constitutional: Appearance: Normal appearance. HENT: Head: Normocephalic and atraumatic. Nose: Nose normal. Mouth/Throat: Mouth: Mucous membranes are moist. Eyes: Extraocular Movements: Extraocular movements intact. Conjunctiva/sclera: Conjunctivae normal. Cardiovascular: Rate and Rhythm: Normal rate and regular rhythm. Pulmonary: Effort: Pulmonary effort is normal. Breath sounds: Normal breath sounds. Comments: Continues on supplemental oxygen via nasal cannula Abdominal: Palpations: Abdomen is soft. Comments: Some mild discomfort to palpation, no guarding or rebound tenderness Genitourinary: Comments: Indwelling barnes to gravity with yellow urine and sediment in barnes Musculoskeletal: General: Normal range of motion. Skin: General: Skin is warm and dry. Neurological: General: No focal deficit present. Mental Status: She is alert and oriented to person, place, and time. Psychiatric: Mood and Affect: Mood normal. Behavior: Behavior normal. Home Medications Medication List START taking these medications amoxicillin-pot clavulanate 875-125 mg tablet; Commonly known as: Augmentin; Take 1 tablet (875 mg) by mouth 2 times a day. metoprolol succinate XL 100 mg 24 hr tablet; Commonly known as: Toprol-XL; Take 1 tablet (100 mg) by mouth once daily. Do not crush or chew. Do not start before September 28, 2023.; Start taking on: September 28, 2023 sacubitriL-valsartan 24-26 mg tablet; Commonly known as: Entresto; Take 0.5 tablets by mouth 2 times a day. CHANGE how you take these medications acetaminophen 325 mg tablet; Commonly known as: Tylenol; What changed: Another medication with the same name was removed. Continue taking this medication, and follow the directions you see here. dicyclomine 20 mg tablet; Commonly known as: Bentyl; What changed: Another medication with the same name was removed. Continue taking this medication, and follow the directions you see here. simethicone 80 mg chewable tablet; Commonly known as: Mylicon; What changed: Another medication with the same name was removed. Continue taking this medication, and follow the directions you see here. CONTINUE taking these medications bisacodyl 10 mg suppository; Commonly known as: Dulcolax calcium carbonate 200 mg calcium chewable tablet; Commonly known as: Tums cranberry fruit 400 mg tablet * cyanocobalamin 500 mcg tablet; Commonly known as: Vitamin B-12 * cyanocobalamin 1,000 mcg tablet; Commonly known as: Vitamin B-12 ferrous sulfate (325 mg ferrous sulfate) tablet folic acid 1 mg tablet; Commonly known as: Folvite furosemide 20 mg tablet; Commonly known as: Lasix gabapentin 100 mg capsule; Commonly known as: Neurontin glimepiride 1 mg tablet; Commonly known as: Amaryl Glucagon (HCl) Emergency Kit 1 mg recon soln; Generic drug: glucagon HCL HYDROcodone-acetaminophen 5-325 mg tablet; Commonly known as: [place]; Take 1 tablet by mouth every 6 hours if needed (moderate to severe pain) for up to 7 days. magnesium hydroxide 400 mg/5 mL suspension; Commonly known as: Milk of Magnesia ondansetron 4 mg tablet; Commonly known as: Zofran pantoprazole 40 mg EC tablet; Commonly known as: ProtoNix phenazopyridine 100 mg tablet; Commonly known as: Pyridium potassium chloride CR 20 mEq ER tablet; Commonly known as: Klor-Con M20 Premarin vaginal cream; Generic drug: estrogens (conjugated) Probiotic 15 billion cell capsule; Generic drug: L. acidophilus-L. rhamnosus; Take 1 capsule by mouth once daily. For 7 days ending 09/20/23. ([facility] Jie Probiotic 15 BILLION per SNF list) sennosides-docusate sodium 8.6-50 mg tablet; Commonly known as: Zarina-Colace simvastatin 10 mg tablet; Commonly known as: Zocor * This list has 2 medication(s) that are the same as other medications prescribed for you. Read the directions carefully, and ask your doctor or other care provider to review them with you. STOP taking these medications carvedilol 3.125 mg tablet; Commonly known as: Coreg Fleet Enema 19-7 gram/118 mL enema enema; Generic drug: sodium phosphates lisinopril 5 mg tablet nitrofurantoin (macrocrystal-monohydrate) 100 mg capsule; Commonly known as: Macrobid Outpatient Follow-Up No future appointments. FREDY Holcomb documented in this encounter [facility] Work Phone: 09-27-2023 Miscellaneous Notes Poli Ramirez is a 72 year old female with a past medical history significant for hypertension on Lasix and lisinopril, hyperlipidemia, COPD (on 2 L nasal cannula at home), type 2 diabetes (not on insulin at home), left breast cancer status post lumpectomy, pancytopenia, open cholecystectomy and appendectomy who presented as a transfer from [facility] with left lower quadrant abdominal pain suspicious for colovesical/colovaginal fistula and diverticulitis on CT. A Pelvic MRI was completed confirming sigmoid diverticulitis and associated abscess abutting superior bladder with development of colovesical fistula. ID was consulted to assist with antibiotic management in the interval until surgery. She will discharge on Augmentin bid. Perioperative medicine and Cardiology were also consulted to optimize her for surgery in the setting of her cardiac issues. A CT angio coronary art study was completed and her heart medications were adjusted. She will discharge back to her home facility and follow up in approximately 2 weeks to clinic for surgical planning. CAIC. Patient states she feels warm but denies other symptoms. CAIC CAIC CAIC CAIC Problem: Pain Goal: My pain/discomfort is manageable Outcome: Progressing Problem: Safety Goal: Patient will be injury free during hospitalization Outcome: Progressing Goal: I will remain free of falls Outcome: Progressing Problem: Daily Care Goal: Daily care needs are met Outcome: Progressing Problem: Psychosocial Needs Goal: Demonstrates ability to cope with hospitalization/illness Outcome: Progressing Goal: Collaborate with me, my family, and caregiver to identify my specific goals Outcome: Progressing Problem: Discharge Barriers Goal: My discharge needs are met Outcome: Progressing Problem: Fall/Injury Goal: Not fall by end of shift Outcome: Progressing Goal: Be free from injury by end of the shift Outcome: Progressing Goal: Verbalize understanding of personal risk factors for fall in the hospital Outcome: Progressing Goal: Verbalize understanding of risk factor reduction measures to prevent injury from fall in the home Outcome: Progressing Goal: Use assistive devices by end of the shift Outcome: Progressing Goal: Pace activities to prevent fatigue by end of the shift Outcome: Progressing Problem: Infection related to problem list condition Goal: Infection will resolve through treatment Outcome: Progressing Problem: Pain - Adult Goal: Verbalizes/displays adequate comfort level or baseline comfort level Outcome: Progressing Problem: Safety - Adult Goal: Free from fall injury Outcome: Progressing Problem: Discharge Planning Goal: Discharge to home or other facility with appropriate resources Outcome: Progressing Problem: Chronic Conditions and Co-morbidities Goal: Patient's chronic conditions and co-morbidity symptoms are monitored and maintained or improved Outcome: Progressing The patient's goals for the shift include pain control and comfort. The clinical goals for the shift include adequate pain control. Problem: Pain Goal: My pain/discomfort is manageable Outcome: Progressing Flowsheets (Taken 09/24/2023 2258) Resident's pain/discomfort is manageable: Administer pain medication prior to activities that may trigger pain Include resident/family/caregiver in decisions related to pain management Problem: Pain Goal: My pain/discomfort is manageable Outcome: Progressing Problem: Safety Goal: Patient will be injury free during hospitalization Outcome: Progressing Goal: I will remain free of falls Outcome: Progressing Problem: Daily Care Goal: Daily care needs are met Outcome: Progressing Problem: Psychosocial Needs Goal: Demonstrates ability to cope with hospitalization/illness Outcome: Progressing Goal: Collaborate with me, my family, and caregiver to identify my specific goals Outcome: Progressing Problem: Discharge Barriers Goal: My discharge needs are met Outcome: Progressing Problem: Fall/Injury Goal: Not fall by end of shift Outcome: Progressing Goal: Be free from injury by end of the shift Outcome: Progressing Goal: Verbalize understanding of personal risk factors for fall in the hospital Outcome: Progressing Goal: Verbalize understanding of risk factor reduction measures to prevent injury from fall in the home Outcome: Progressing Goal: Use assistive devices by end of the shift Outcome: Progressing Goal: Pace activities to prevent fatigue by end of the shift Outcome: Progressing Problem: Infection related to problem list condition Goal: Infection will resolve through treatment Outcome: Progressing MRI with colovesical fistula. Will remain available for the OR but will signoff for the time being. Please don't hesitate to reach out with concerns or questions. D/w Dr Asaf Lancaster MD MPH Gynecologic Oncology PGY7 Pager: [phone], Team Phone: [phone] Problem: Pain Goal: My pain/discomfort is manageable Outcome: Progressing Problem: Safety Goal: Patient will be injury free during hospitalization Outcome: Progressing Goal: I will remain free of falls Outcome: Progressing Problem: Daily Care Goal: Daily care needs are met Outcome: Progressing Problem: Psychosocial Needs Goal: Demonstrates ability to cope with hospitalization/illness Outcome: Progressing Goal: Collaborate with me, my family, and caregiver to identify my specific goals Outcome: Progressing Problem: Discharge Barriers Goal: My discharge needs are met Outcome: Progressing Problem: Fall/Injury Goal: Not fall by end of shift Outcome: Progressing Goal: Be free from injury by end of the shift Outcome: Progressing Goal: Verbalize understanding of personal risk factors for fall in the hospital Outcome: Progressing Goal: Verbalize understanding of risk factor reduction measures to prevent injury from fall in the home Outcome: Progressing Goal: Use assistive devices by end of the shift Outcome: Progressing Goal: Pace activities to prevent fatigue by end of the shift Outcome: Progressing Problem: Infection related to problem list condition Goal: Infection will resolve through treatment Outcome: Progressing Sedation Plan ASA 3 Mallampati class: II. Risks, benefits, and alternatives discussed with patient. The clinical goals for the shift include VSS, pain mgmt, monitor I&O's Problem: Pain Goal: My pain/discomfort is manageable Outcome: Progressing Problem: Safety Goal: Patient will be injury free during hospitalization Outcome: Progressing Goal: I will remain free of falls Outcome: Progressing Problem: Daily Care Goal: Daily care needs are met Outcome: Progressing Problem: Psychosocial Needs Goal: Demonstrates ability to cope with hospitalization/illness Outcome: Progressing Goal: Collaborate with me, my family, and caregiver to identify my specific goals Outcome: Progressing Problem: Discharge Barriers Goal: My discharge needs are met Outcome: Progressing Problem: Fall/Injury Goal: Not fall by end of shift Outcome: Progressing Goal: Be free from injury by end of the shift Outcome: Progressing Goal: Verbalize understanding of personal risk factors for fall in the hospital Outcome: Progressing Goal: Verbalize understanding of risk factor reduction measures to prevent injury from fall in the home Outcome: Progressing Goal: Use assistive devices by end of the shift Outcome: Progressing Goal: Pace activities to prevent fatigue by end of the shift Outcome: Progressing Problem: Pain Goal: My pain/discomfort is manageable Outcome: Progressing Problem: Safety Goal: Patient will be injury free during hospitalization Outcome: Progressing Goal: I will remain free of falls Outcome: Progressing Problem: Daily Care Goal: Daily care needs are met Outcome: Progressing Problem: Psychosocial Needs Goal: Demonstrates ability to cope with hospitalization/illness Outcome: Progressing Goal: Collaborate with me, my family, and caregiver to identify my specific goals Outcome: Progressing Problem: Discharge Barriers Goal: My discharge needs are met Outcome: Progressing Problem: Fall/Injury Goal: Not fall by end of shift Outcome: Progressing Goal: Be free from injury by end of the shift Outcome: Progressing Goal: Verbalize understanding of personal risk factors for fall in the hospital Outcome: Progressing Goal: Verbalize understanding of risk factor reduction measures to prevent injury from fall in the home Outcome: Progressing Goal: Use assistive devices by end of the shift Outcome: Progressing Goal: Pace activities to prevent fatigue by end of the shift Outcome: Progressing Problem: Infection related to problem list condition Goal: Infection will resolve through treatment Outcome: Progressing The clinical goals for the shift include VSS, remain free from fall/injury, adequate rest VSS on NC@ 2L, reporting vaginal pain d/t pelvic exam by provider, administered prn oxy x1 with relief. Pt reported itching near labia, notified provider, no new orders, instructed to use cold pack; administered cold pack with relief. Bed/chair alarm in place. Pt turning with verbal reminders. Barnes catheter in place. Tolerating mIVFs and IV abx. Carb controlled diet with good appetite. Provider notified of q4 insulin orders with D5W infusing, no new orders. Pt resting on and off throughout night. Remains free from fall/injury. MRI screening form filled out, radiology notified. RN notified TTE scheduled for 09/20 @10:30. Problem: Pain Goal: My pain/discomfort is manageable Outcome: Progressing Problem: Safety Goal: Patient will be injury free during hospitalization Outcome: Progressing Goal: I will remain free of falls Outcome: Progressing Problem: Daily Care Goal: Daily care needs are met Outcome: Progressing Problem: Psychosocial Needs Goal: Demonstrates ability to cope with hospitalization/illness Outcome: Progressing Goal: Collaborate with me, my family, and caregiver to identify my specific goals Outcome: Progressing Problem: Discharge Barriers Goal: My discharge needs are met Outcome: Progressing Problem: Fall/Injury Goal: Not fall by end of shift Outcome: Progressing Goal: Be free from injury by end of the shift Outcome: Progressing Goal: Verbalize understanding of personal risk factors for fall in the hospital Outcome: Progressing Goal: Verbalize understanding of risk factor reduction measures to prevent injury from fall in the home Outcome: Progressing Goal: Use assistive devices by end of the shift Outcome: Progressing Goal: Pace activities to prevent fatigue by end of the shift Outcome: Progressing Problem: Infection related to problem list condition Goal: Infection will resolve through treatment Outcome: Progressing The patient's goals for the shift include The clinical goals for the shift include Manage urinary discomfort A/O x4, VSS, 2L NC, barnes in place with pink-cloudy urine output. Pt c/o urinary discomfort and burning. Loose BM today, able to get to bedside commode with assistance. CT head done. Pt refusing MRI of pelvis, notified. Pt is to have liver U/S today, has been NPO since 1200, plan for U/S around [id number]. PRN pain medication given per orders. Patient requesting lidocaine gel for vaginal area for pain at barnes site, notified. All needs met, WCTM. Please see media for colonoscopy note from 08/15/23 at [facility]. Patient transitioned to the colorectal surgery service. Acute care surgery will sign off at this time. Thank you for allowing us to take care of Ms. Ramirez and we wish the best for her. Appreciate colorectal surgery care. Og Luis MD PGY-1 General Surgery Acute Care Surgery [phone] Epic Chat Preferred Discussed terms of patient's DNR with patient in order to clarify. She states that she is DNR and does not want compressions during CPR. She states that she would want intubation (including for surgery). She also states that she would be okay to receive vasopressor agents and would be okay with escalation of care, including ICU admission if needed, including during and after surgery. She also states that she would be okay with potential future feeding tube need or tracheostomy. She states that her surrogate decision maker is her Armani, but that he is currently in a fpc here in [place]. Also states that she has a daughter, Jocy Ramirez, who can make decisions for her. Does not have Jocy's number at this time, but states that she would be okay with surgical team calling her to let her know she is in the hospital at [facility]. Staci Degroot MD PGY-3 General Surgery documented in this encounter [facility] Work Phone: 09-23-2023 Consult note Associated Order (s): Inpatient consult to Infectious Diseases Inpatient consult to Infectious Diseases Consult performed by: Karina Dennison MD MPH Consult ordered by: Varsha Sotelo MD Reason for consult: Complicated Diverticulitis, MDR UTI History Of Present Illness Poli Ramirez is a 72 y.o. 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 Also reports chronic dysuria with dark specks in urine. Patient reportedly had a colonoscopy several weeks ago at [facility] for " work-up of the abdominal pain which was significant for a reported "obstructing mass". Per patient she needed surgery at this time, however, she was not medically optimized, so her surgeon "refused" to perform the operation. " Then seen 09/15 at OSH with LLQ abdominal pain where had a CT scan that showed possible abscess with colonic-vaginal vs colonic vesicular fistula. Transferred to [facility] 09/16 for surgical eval. Underwent MRI 09/21 that support abscess near baldder, bladder inflammation and colovesicular fistula. Currently getting cardiac clearance for c/f low EF. Pt has been since admission on Ctx, flagyl (09/16-date) . However in past day Ctx stopped as 09/20 Ucx sent grew VRE-faecium S only to NTF and Linezolid, DD with daptomycin and R to amp/cipro/ pcn/bactrim and vanc. However pt remains HDS without fevers, leukocytosis . 09/15 Bcx ngtd. ID consulted for abx recs for complicated uti. Social History: She has no history on file for tobacco use, alcohol use, and drug use.lives with , Family History: Family History No family history on file. Allergies: Flexeril [cyclobenzaprine] and Zanaflex [tizanidine] Past Medical History She has a past medical history of Personal history of irradiation, Personal history of malignant neoplasm of breast, Personal history of other diseases of the circulatory system, Personal history of other diseases of the circulatory system, Personal history of other diseases of the digestive system, Personal history of other diseases of the digestive system, Personal history of other diseases of the musculoskeletal system and connective tissue, Personal history of other diseases of the respiratory system, and Personal history of other endocrine, nutritional and metabolic disease. Surgical History She has a past surgical history that includes Cholecystectomy (04/22/2014); Cataract extraction (04/22/2014); Other surgical history (07/14/2020); Other surgical history (07/14/2020); Other surgical history (07/14/2020); Other surgical history (07/14/2020); Other surgical history (07/14/2020); Other surgical history (07/14/2020); and Other surgical history (07/14/2020). Social History Occupational History Not on file Tobacco Use Smoking status: Not on file Smokeless tobacco: Not on file Substance and Sexual Activity Alcohol use: Not on file Drug use: Not on file Sexual activity: Not on file Travel History Travel since 08/23/23 No documented travel since 08/23/23 Pets: no Hobbies: unknown Family History No family history on file. Allergies Flexeril [cyclobenzaprine] and Zanaflex [tizanidine] There is no immunization history on file for this patient. Medications Home medications: Medications Prior to Admission Medication Sig Dispense Refill Last Dose acetaminophen (Tylenol) 325 mg tablet Take 2 tablets (650 mg) by mouth once daily at bedtime. Scheduled acetaminophen (Tylenol) 325 mg tablet Take 2 tablets (650 mg) by mouth every 4 hours if needed (elevated temp or pain). MAX 3GM/24HR acetaminophen (Tylenol) 325 mg tablet Take 2 tablets (650 mg) by mouth once daily in the morning. Scheduled bisacodyl (Dulcolax) 10 mg suppository Insert 1 suppository (10 mg) into the rectum once daily as needed for constipation. calcium carbonate (Tums) 200 mg calcium chewable tablet Chew 1 tablet (500 mg) 2 times a day. For gas/stomach pains. Give with breakfast and supper. carvedilol (Coreg) 3.125 mg tablet Take 1 tablet (3.125 mg) by mouth 2 times a day. cranberry fruit 400 mg tablet Take 1 tablet by mouth once daily. For UTI prevention cyanocobalamin (Vitamin B-12) 1,000 mcg tablet Take 1 tablet (1,000 mcg) by mouth once daily in the morning. cyanocobalamin (Vitamin B-12) 500 mcg tablet Take 1 tablet (500 mcg) by mouth once daily at bedtime. dicyclomine (Bentyl) 20 mg tablet Take 1 tablet (20 mg) by mouth every 8 hours if needed. For abdominal pain dicyclomine (Bentyl) 20 mg tablet Take 1 tablet (20 mg) by mouth 2 times a day. Scheduled estrogens, conjugated, (Premarin) vaginal cream Insert 1 applicatorful vaginally at bedtime every MON and THURS, for vaginal bleeding, for 1 month. End date 10/15/23. ferrous sulfate 325 (65 Fe) MG tablet Take 1 tablet (65 mg of iron) by mouth 2 times a day. FEOSOL 200 (65 Fe) Mg Per SNF List folic acid (Folvite) 1 mg tablet Take 1 tablet (1 mg) by mouth once daily in the morning. furosemide (Lasix) 20 mg tablet Take 1 tablet (20 mg) by mouth once daily in the morning. gabapentin (Neurontin) 100 mg capsule Take 1 capsule (100 mg) by mouth 3 times a day. glimepiride (Amaryl) 1 mg tablet Take 1 tablet (1 mg) by mouth once daily in the morning. glucagon HCL (Glucagon, HCl, Emergency Kit) 1 mg recon soln Inject 1 mg as directed if needed. If blood glucose is less than 70 and non-responsive or NPO HYDROcodone-acetaminophen ([place]) 5-325 mg tablet Take 1 tablet by mouth every 6 hours if needed (moderate to severe pain). [] L. acidophilus-L. rhamnosus (Probiotic) 15 billion cell capsule Take 1 capsule by mouth once daily. For 7 days ending 09/20/23. ([facility] Jie Probiotic 15 BILLION per SNF list) lisinopril 5 mg tablet Take 0.5 tablets (2.5 mg) by mouth once daily in the morning. 2.5 mg daily magnesium hydroxide (Milk of Magnesia) 400 mg/5 mL suspension Take 30 mL by mouth once daily as needed for constipation. [] nitrofurantoin, macrocrystal-monohydrate, (Macrobid) 100 mg capsule Take 1 capsule (100 mg) by mouth 2 times a day. For 7 days, end date 09/20/23 ondansetron (Zofran) 4 mg tablet Take 1 tablet (4 mg) by mouth every 8 hours if needed for nausea. pantoprazole (ProtoNix) 40 mg EC tablet Take 1 tablet (40 mg) by mouth once daily. Do not crush, chew, or split. phenazopyridine (Pyridium) 100 mg tablet Take 1 tablet (100 mg) by mouth every 8 hours if needed. potassium chloride CR 20 mEq ER tablet Take 1 tablet (20 mEq) by mouth once daily in the morning. Do not crush or chew. sennosides-docusate sodium (Zarina-Colace) 8.6-50 mg tablet Take 1 tablet by mouth once daily as needed for constipation. simethicone (Mylicon) 80 mg chewable tablet Chew 1 tablet (80 mg) every 6 hours if needed for flatulence. simethicone (Mylicon) 80 mg chewable tablet Chew 1 tablet (80 mg) once daily in the morning. Scheduled simvastatin (Zocor) 10 mg tablet Take 1 tablet (10 mg) by mouth once daily at bedtime. sodium phosphates (Fleet Enema) 19-7 gram/118 mL enema enema Insert 118 mL (1 enema) into the rectum once daily as needed for constipation. Current medications: Scheduled medications enoxaparin, 40 mg, subcutaneous, q24h insulin lispro, 0-5 Units, subcutaneous, Before meals & nightly LORazepam, 0.5 mg, intravenous, Once losartan, 25 mg, oral, Daily metoprolol succinate XL, 12.5 mg, oral, Daily metoprolol, 5 mg, intravenous, Once metroNIDAZOLE, 500 mg, intravenous, q8h nitrofurantoin (macrocrystal-monohydrate), 100 mg, oral, q12h DIONY nitroglycerin, 0.8 mg, sublingual, Once pantoprazole, 40 mg, oral, Daily perflutren protein A microsphere, 0.5 mL, intravenous, Once in imaging sulfur hexafluoride microsphr, 2 mL, intravenous, Once in imaging Continuous medications PRN medications PRN medications: acetaminophen, dextrose 10 % in water (D10W), dextrose, glucagon, LORazepam, metoprolol, metoprolol, metoprolol, metoprolol, metoprolol tartrate, [DISCONTINUED] ondansetron OR ondansetron, oxyCODONE, oxyCODONE, sennosides-docusate sodium, simethicone Review of Systems Constitutional: Positive for appetite change and unexpected weight change. Gastrointestinal: Positive for abdominal pain (LLQ). Genitourinary: Positive for dysuria and pelvic pain. All other systems reviewed and are negative. Objective Range of Vitals (last 24 hours) Heart Rate: [83-103] Temp: [36.2 C (97.2 F)-37 C (98.6 F)] Resp: [16] BP: (105-110)/(66-69) SpO2: [97 %-99 %] Daily Weight 09/15/23 : 74.8 kg (165 lb) Body mass index is 27.46 kg/m . Physical Exam Constitutional: General: She is not in acute distress. Appearance: She is normal weight. She is not toxic-appearing. HENT: Head: Normocephalic and atraumatic. Eyes: Conjunctiva/sclera: Conjunctivae normal. Cardiovascular: Rate and Rhythm: Normal rate and regular rhythm. Pulses: Normal pulses. Heart sounds: Normal heart sounds. No murmur heard. Pulmonary: Effort: Pulmonary effort is normal. No respiratory distress. Breath sounds: No wheezing or rales. Abdominal: General: Abdomen is flat. Palpations: Abdomen is soft. Tenderness: There is abdominal tenderness (with deep palpation in lower quadrants). Musculoskeletal: General: No swelling, tenderness or deformity. Cervical back: Normal range of motion. No rigidity. Right lower leg: No edema. Skin: General: Skin is warm. Findings: No rash. Neurological: General: No focal deficit present. Mental Status: She is alert and oriented to person, place, and time. Psychiatric: Mood and Affect: Mood normal. Behavior: Behavior normal. Relevant Results Outside Hospital Results Yes - as above- ct Labs Results from last 72 hours Lab Units 09/23/2371509/22/2383109/21/23 0637 WBC AUTO x10*3/uL 4.9 4.7 5.0 HEMOGLOBIN g/dL 7.7* 8.0* 8.0* HEMATOCRIT % 26.9* 27.9* 25.6* PLATELETS AUTO x10*3/uL 93* 99* 88* Results from last 72 hours Lab Units 09/23/23 0716 09/22/23 0832 09/21/23 0637 SODIUM mmol/L 144 146* 146* POTASSIUM mmol/L 4.0 4.0 3.8 CHLORIDE mmol/L 100 101 101 CO2 mmol/L 40* 38* 41* BUN mg/dL 13 15 12 CREATININE mg/dL 0.42* 0.42* 0.45* GLUCOSE mg/dL 123* 134* 140* CALCIUM mg/dL 8.7 8.3* 8.3* ANION GAP mmol/L 8* 11 8* EGFR mL/min/1.73m*2 >90 >90 >90 PHOSPHORUS mg/dL 3.0 3.4 3.4 Results from last 72 hours Lab Units 09/23/23 0716 09/22/23 0832 09/21/23 0637 ALBUMIN g/dL 2.9* 2.7* 2.7* Estimated Creatinine Clearance: 120.7 mL/min (A) (by C-G formula based on SCr of 0.42 mg/dL (L)). No results found for: "CRP", SEDRATE HIV 1/2 Antigen/Antibody Screen with Reflex to Confirmation Date Value Ref Range Status 09/20/2023 Nonreactive Nonreactive Final Hepatitis C AB Date Value Ref Range Status 09/20/2023 Nonreactive Nonreactive Final Comment: Results from patients taking biotin supplements or receiving high-dose biotin therapy should be interpreted with caution due to possible interference with this test. Providers may contact their local laboratory for further information. Microbiology Susceptibility data from last 90 days. Collected Specimen Info Organism Ampicillin Ciprofloxacin Daptomycin Levofloxacin Linezolid Nitrofurantoin Penicillin Trimethoprim/Sulfamethoxazole Vancomycin 09/20/23 Urine from Indwelling ([place]) Catheter Enterococcus faecium R R SDD R S S R R R Imaging Transthoracic Echo (TTE) Complete 09/20/2023 CONCLUSIONS: 1. Left ventricular systolic function is severely decreased with a 15-20% estimated ejection fraction. 2. Echocontrast was utilized and excluded LV apical thrombus. 3. Spectral Doppler shows an impaired relaxation pattern of left ventricular diastolic filling. 4. Primary service notified of results at the time of reporting. 5. No prior echocardiogram available for comparison. 6. There is global hypokinesis of the left ventricle with minor regional variations. MR pelvis w and wo IV contrast 09/21/23 Impression: 1. Complicated sigmoid diverticulitis with associated abscess abutting the superior bladder and development of colovesicular fistula. 2. 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 3. Multiple fibroids including a mass in the left adnexa favored to be pedunculated fibroid versus less likely fibrous mass including fibroma and fibrothecoma. 4. Tubular structure in the left adnexa with intrinsic T1 hyperintense signal suspicious for small volume hematosalpinx. MICRO 09/15 BCX x2 NGTD 09/20 Ucx >100K E faecium ABX CTX 09/16- Flagyl 09/16- Ntf 09/22- Assessment/Plan Poli Ramirez is a 72 y.o. 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 Pt currently awaiting surgical definitive treatment. From ID standpoint, would treat for UTI for short 7d course with NTF for cystitis coverage however this would not be curative in the absence of surgical repair and has high risk of occurrence. 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 Additionally, would recommend continuing both IV CTX and Flagyl for abscess coverage until this is also addressed. Pt does not appears to be failing coverage with CTX and flagyl so this an appropriate regimen. She is otherwise well appearing on exam, afebrile, non toxic with no leukocytosis. Final recs as below. RECOMMENDATION 1- As above, continue NTF for 7d course from start date 09/22/23- 09/28/23, then stop. We do not recommend treating with Linezolid for this. Agree with surgically addressing fistula as this put pt as high risk of recurrence. 2- Also resume IV ceftriaxone and flagyl for abscess coverage until get definite source control; once definite source control is achieved- Primary can complete few days (3-5d) post-op then stop. Defer final ctx/flagyl course to primary team 3- rest of care per primary team Thank you for consult, ID has signed off but please call back if further questions. ID team A pager [phone]. For new consults, contact pager [phone]. Patient staffed with ID attendant Dr Agarwal who agrees with plan as above Karina Dennison MD MPH Patient seen and examined, discussed with Dr Dennison. Agree with above. Difficult problem antibiotics can only tame. Hopefully cardiac function can be optimized to allow for needed diverting colostomy. Plan as outlined above. Associated Order(s): Inpatient consult to Heart Failure Inpatient consult to Heart Failure Consult performed by: Jeovanny Jones DO Consult ordered by: Varsha Sotelo MD History Of Present Illness: Poli Ramirez is a 72 y.o. female presenting with LLQ abdominal pain with concern for colovesical/colovaginal fistula with diverticulitis. Past medical history significant for hypertension, hyperlipidemia, COPD on 2L, DM2, L breast cancer s/p lumpectomy, pancytopenia. She originally presented to [facility] with LLQ abdominal pain over the last 4 months. At [facility] a CT scan revealed chronic inflammation with bladder wall thickening, large diverticula with stool in sigmoid colon, and a likely benign mass in the spleen (present since previous scan in 2013). The scan was not able to exclude colovesical or colovaginal fistula. Patient had a colonoscopy several weeks ago at [facility] for work-up of the abdominal pain which was significant for a reported "obstructing mass". Per patient she needed surgery at this time, however, she was not medically optimized, so her surgeon "refused" to perform the operation. She denies previous cardiac history, chest pain, or dyspnea. During pre operative evaluation at [facility], she had a routine TTE which is significant for severely reduced LV function with EF 15-20%, global hypokinesis. She is currently not in acute decompensated heart failure. She has documental EF 55% from 2008 but no other cardiac testing/documentation available in the EMR. Heart Failure was consulted for severe cardiomyopathy, preoperative risk evaluation. Last Recorded Vitals: Vitals: 09/20/23 1713 09/20/23 2104 09/21/23 0057 09/21/23 0447 BP: 125/76 111/74 121/77 104/63 BP Location: Right arm Right arm Right arm Right arm Patient Position: Lying Lying Lying Lying Pulse: 82 98 101 95 Resp: 18 18 18 16 Temp: 36.5 C (97.7 F) 36.8 C (98.2 F) 36.6 C (97.9 F) 36.5 C (97.7 F) TempSrc: Temporal Temporal Temporal Temporal SpO2: 98% 99% 100% 100% Weight: Height: Last Labs: CBC - 09/21/2023: 6:37 AM 5.0 8.0 88 25.6 CMP - 09/21/2023: 6:37 AM 8.3 5.7 10 --- 0.4 3.4 2.7 7 47 PTT - 09/19/2023: 10:21 AM 1.1 12.3 32 BNP Date/Time Value Ref Range Status 09/19/2023 10:21 AM 154 (H) 0 - 99 pg/mL Final 09/18/2023 05:43 AM 144 (H) 0 - 99 pg/mL Final Hemoglobin A1C Date/Time Value Ref Range Status 09/18/2023 05:43 AM 4.8 see below % Final Last I/O: I/O last 3 completed shifts: In: 916 (12.2 mL/kg) [P.O.:600; I.V.:166 (2.2 mL/kg); IV Piggyback:150] Out: 1925 (25.7 mL/kg) [Urine:1925 (0.7 mL/kg/hr)] Weight: 74.8 kg Past Cardiology Tests (Last 3 Years): EK09/19/23 Echo: Transthoracic Echo (TTE) Complete 09/20/2023 CONCLUSIONS: 1. Left ventricular systolic function is severely decreased with a 15-20% estimated ejection fraction. 2. Echocontrast was utilized and excluded LV apical thrombus. 3. Spectral Doppler shows an impaired relaxation pattern of left ventricular diastolic filling. 4. Primary service notified of results at the time of reporting. 5. No prior echocardiogram available for comparison. 6. There is global hypokinesis of the left ventricle with minor regional variations. Cath: No results found for this or any previous visit from the past 1095 days. Stress Test: No results found for this or any previous visit from the past 1095 days. Past Medical History: She has a past medical history of Personal history of irradiation, Personal history of malignant neoplasm of breast, Personal history of other diseases of the circulatory system, Personal history of other diseases of the circulatory system, Personal history of other diseases of the digestive system, Personal history of other diseases of the digestive system, Personal history of other diseases of the musculoskeletal system and connective tissue, Personal history of other diseases of the respiratory system, and Personal history of other endocrine, nutritional and metabolic disease. Past Surgical History: She has a past surgical history that includes Cholecystectomy (04/22/2014); Cataract extraction (04/22/2014); Other surgical history (07/14/2020); Other surgical history (07/14/2020); Other surgical history (07/14/2020); Other surgical history (07/14/2020); Other surgical history (07/14/2020); Other surgical history (07/14/2020); and Other surgical history (07/14/2020). Social History: She has no history on file for tobacco use, alcohol use, and drug use. Family History: No family history on file. Allergies: Flexeril [cyclobenzaprine] and Zanaflex [tizanidine] Inpatient Medications: Scheduled medications Medication Dose Route Frequency cefTRIAXone 1 g intravenous q24h enoxaparin 40 mg subcutaneous q24h insulin lispro 0-5 Units subcutaneous q4h LORazepam 0.5 mg intravenous Once metroNIDAZOLE 500 mg intravenous q8h perflutren protein A microsphere 0.5 mL intravenous Once in imaging sulfur hexafluoride microsphr 2 mL intravenous Once in imaging PRN medications Medication acetaminophen dextrose 10 % in water (D10W) dextrose glucagon HYDROmorphone ondansetron Or ondansetron oxyCODONE oxyCODONE Continuous Medications Medication Dose Last Rate Outpatient Medications: Current Outpatient Medications Medication Instructions acetaminophen (TYLENOL) 650 mg, oral, Nightly, Scheduled acetaminophen (TYLENOL) 650 mg, oral, Every 4 hours PRN, MAX 3GM/24HR acetaminophen (TYLENOL) 650 mg, oral, Every morning, Scheduled bisacodyl (DULCOLAX) 10 mg, rectal, Daily PRN calcium carbonate (Tums) 200 mg calcium chewable tablet 1 tablet, oral, 2 times daily, For gas/stomach pains. Give with breakfast and supper. carvedilol (COREG) 3.125 mg, oral, 2 times daily cranberry fruit 400 mg tablet 1 tablet, oral, Daily, For UTI prevention cyanocobalamin (Vitamin B-12) 1,000 mcg tablet 1 tablet, oral, Every morning cyanocobalamin (VITAMIN B-12) 500 mcg, oral, Nightly dicyclomine (BENTYL) 20 mg, oral, Every 8 hours PRN, For abdominal pain dicyclomine (BENTYL) 20 mg, oral, 2 times daily, Scheduled estrogens, conjugated, (Premarin) vaginal cream Insert 1 applicatorful vaginally at bedtime every MON and THURS, for vaginal bleeding, for 1 month. End date 10/15/23. ferrous sulfate 325 (65 Fe) MG tablet 65 mg of iron, oral, 2 times daily, FEOSOL 200 (65 Fe) Mg Per SNF List folic acid (FOLVITE) 1 mg, oral, Every morning furosemide (LASIX) 20 mg, oral, Every morning gabapentin (NEURONTIN) 100 mg, oral, 3 times daily glimepiride (AMARYL) 1 mg, oral, Every morning glucagon HCL (GLUCAGON (HCL) EMERGENCY KIT) 1 mg, injection, As needed, If blood glucose is less than 70 and non-responsive or NPO HYDROcodone-acetaminophen ([place]) 5-325 mg tablet 1 tablet, oral, Every 6 hours PRN lisinopril 5 mg tablet 0.5 tablets, oral, Every morning, 2.5 mg daily magnesium hydroxide (Milk of Magnesia) 400 mg/5 mL suspension 30 mL, oral, Daily PRN ondansetron (Zofran) 4 mg tablet 1 tablet, oral, Every 8 hours PRN pantoprazole (PROTONIX) 40 mg, oral, Daily, Do not crush, chew, or split. phenazopyridine (PYRIDIUM) 100 mg, oral, Every 8 hours PRN potassium chloride CR 20 mEq ER tablet 20 mEq, oral, Every morning, Do not crush or chew. sennosides-docusate sodium (Zarina-Colace) 8.6-50 mg tablet 1 tablet, oral, Daily PRN simethicone (MYLICON) 80 mg, oral, Every 6 hours PRN simethicone (MYLICON) 80 mg, oral, Every morning, Scheduled simvastatin (ZOCOR) 10 mg, oral, Nightly sodium phosphates (Fleet Enema) 19-7 gram/118 mL enema enema 1 enema, rectal, Daily PRN Physical Exam: Physical Exam Constitutional: General: She is not in acute distress. HENT: Mouth/Throat: Mouth: Mucous membranes are moist. Eyes: Extraocular Movements: Extraocular movements intact. Pupils: Pupils are equal, round, and reactive to light. Cardiovascular: Rate and Rhythm: Normal rate and regular rhythm. Heart sounds: No murmur heard. Pulmonary: Effort: Pulmonary effort is normal. No respiratory distress. Breath sounds: No rales. Abdominal: General: There is no distension. Palpations: Abdomen is soft. Skin: General: Skin is warm and dry. Neurological: General: No focal deficit present. Mental Status: She is alert and oriented to person, place, and time. Psychiatric: Mood and Affect: Mood normal. Assessment/Plan #Newly diagnosed cardiomyopathy, EF 15-20%. Unclear if she had any interval echos since 2008 with a preserved EF. She was refused from a surgical intervention at [place] which sounds like it may have been due to her heart disease. 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 Still being worked up by primary team, no surgery planned as of yet #Hypertension #Hyperlipidemia #COPD on 2L chronically Recommendations: Please obtain her records from [facility] for any echos, or cardiac consultations/testing. Start metoprolol succinate 12.5 mg daily Start losartan 25 mg daily Start spironolactone 12.5 mg daily If there is urgent surgical intervention planned this admission, she will need coronary ischemic evaluation with either coronary CT or Left heart catheterization. If no surgery offered or planned this admission, she can have cardiology follow up outpatient for further testing. Will continue to follow. Discussed with HF attending, Dr. Antoni Barajas, Jeovanny Jones DO PGY-4 Advanced Heart Failure Fellow Associated attestation - Aliza Snyder MD - 09/22/2023 4:35 PM EST I saw and evaluated the patient. I personally obtained the baeza and critical portions of the history and physical exam or was physically present for baeza and critical portions performed by the resident/fellow. I reviewed the resident/fellow's documentation and discussed the patient with the resident/fellow. I agree with the resident/fellow's medical decision making as documented in the note. Consulted for Severely reduced ejection fraction Patient reports having had no ischemic evaluation in the past but being aware that her heart is weak Will initiate low dose GDMT Obtain outside records Will need to have ischemic evaluation prior to surgery to clarify the state of her coronaries unless the surgery is urgent Will also have to discuss with the primary team if it is acceptable for her to be on DAPT which will delay her surgery by months The patient denies having any GI bleeding Obstetrical Consult Reason for Consult: vaginal bleeding in s/o suspected colovesical/colovaginal fistula and diverticulitis Assessment/Plan 72 y.o with h/o left breast cancer, HTN, COPD (on 2L NC at home), T2DM, chronic thrombocytopenia and anemia who is a transferred from [facility] with left lower quadrant abdominal pain and acute vaginal bleeding, with 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 AUB -postmenopausal bleeding, pelvic exam limited but unremarkable, given recent weight loss and poor appetite, symptoms c/f AUB-M - MRI ordered by primary team, will follow up and assess for endometrial biopsy - No active bleeding noted at bedside, recommend pad counts (notify [employer] Onc team if >2pad/hr over 2hrs) Colovesical/Colovaginal Fistula -Continue Ceftriaxone and Flagyl tx per primary team plan -MRI ordered, will follow up with primary team regarding possible surgical vs non-surgical plans - Continue carb controlled diet with SSI and Glucerna shakes per primary team plan Pancytopenia - trend daily labs per primary team HTN -Continue home medications per primary team plan H/o COPD -on 2L NC at home D/w Dr. Osorio, will be formally staffed in AM Deidra Morris MD, PGY-2 Agree with above. Fistula possibly including the vagina and vaginal bleeding. Pelvic MRI without evidence of MISSILE INSPECTOR PREFLIGHT cancer. She should have an endometrial biopsy. If she is having surgery this hospitalization will perform while hospitalized, otherwise would do as an outpatient. We will be available if needed for surgery. Eric Osorio MD Subjective 72 y.o with h/o left breast cancer, HTN, COPD (on 2L NC at home), T2DM, chronic thrombocytopenia and anemia who is a transferred from [facility] for left lower quadrant abdominal pain with suspeted colorvesical/colovaginal fistula and diverticiulitis c/b intraabodminal abscess. Gynecologic Oncology consulted for vaginal bleeding. Patient states history of worsening left lower abdominal pain for the past 2-3 months. She also endorses worsening vaginal bleeding, 30-40lb weight loss and decreased appetite and nausea, night sweats with chills and decreased energy for the past 6 weeks. She has dysuria, intermittent passage of flatus from urethra while urinating but denies evident passage of stool from urethra. She has bowel movements approximately daily, denies bloody stools. GynHx: denies history of abnormal Pap smear, denies STD hx. Menopause onset late 40's with no h/o breakthrough bleeding until present OBHx: , x2 PMH: T2DM, HTN, arthritis, COPD, left breast cancer PSH: left lumpectomy with radiation, cholecystectomy, bilateral cataract surgery All: NKDA Meds: per chart SocHx: former tobacco and EtOH use, denies illicit drug use Obstetrical History OB History No obstetric history on file. Past Medical History Past Medical History: Diagnosis Date Personal history of irradiation History of radiation therapy Personal history of malignant neoplasm of breast Personal history of malignant neoplasm of breast Personal history of other diseases of the circulatory system History of hypertension Personal history of other diseases of the circulatory system Personal history of coronary atherosclerosis Personal history of other diseases of the digestive system History of hiatal hernia Personal history of other diseases of the digestive system History of gastroesophageal reflux (GERD) Personal history of other diseases of the musculoskeletal system and connective tissue Personal history of rheumatoid arthritis Personal history of other diseases of the respiratory system History of chronic obstructive lung disease Personal history of other endocrine, nutritional and metabolic disease History of diabetes mellitus Past Surgical History Past Surgical History: Procedure Laterality Date CATARACT EXTRACTION 04/22/2014 Cataract Surgery CHOLECYSTECTOMY 04/22/2014 Cholecystectomy OTHER SURGICAL HISTORY 07/14/2020 Tubal ligation OTHER SURGICAL HISTORY 07/14/2020 Knee arthroscopy OTHER SURGICAL HISTORY 07/14/2020 Appendectomy OTHER SURGICAL HISTORY 07/14/2020 Cardiac catheterization OTHER SURGICAL HISTORY 07/14/2020 Colonoscopy OTHER SURGICAL HISTORY 07/14/2020 Esophagogastroduodenoscopy OTHER SURGICAL HISTORY 07/14/2020 Lumpectomy Social History Social History Tobacco Use Smoking status: Not on file Smokeless tobacco: Not on file Substance Use Topics Alcohol use: Not on file Substance and Sexual Activity Drug Use Not on file Allergies Flexeril [cyclobenzaprine] and Zanaflex [tizanidine] Medications Medications Prior to Admission Medication Sig Dispense Refill Last Dose acetaminophen (Tylenol) 325 mg tablet Take 2 tablets (650 mg) by mouth once daily at bedtime. Scheduled acetaminophen (Tylenol) 325 mg tablet Take 2 tablets (650 mg) by mouth every 4 hours if needed (elevated temp or pain). MAX 3GM/24HR acetaminophen (Tylenol) 325 mg tablet Take 2 tablets (650 mg) by mouth once daily in the morning. Scheduled bisacodyl (Dulcolax) 10 mg suppository Insert 1 suppository (10 mg) into the rectum once daily as needed for constipation. calcium carbonate (Tums) 200 mg calcium chewable tablet Chew 1 tablet (500 mg) 2 times a day. For gas/stomach pains. Give with breakfast and supper. carvedilol (Coreg) 3.125 mg tablet Take 1 tablet (3.125 mg) by mouth 2 times a day. cranberry fruit 400 mg tablet Take 1 tablet by mouth once daily. For UTI prevention cyanocobalamin (Vitamin B-12) 1,000 mcg tablet Take 1 tablet (1,000 mcg) by mouth once daily in the morning. cyanocobalamin (Vitamin B-12) 500 mcg tablet Take 1 tablet (500 mcg) by mouth once daily at bedtime. dicyclomine (Bentyl) 20 mg tablet Take 1 tablet (20 mg) by mouth every 8 hours if needed. For abdominal pain dicyclomine (Bentyl) 20 mg tablet Take 1 tablet (20 mg) by mouth 2 times a day. Scheduled estrogens, conjugated, (Premarin) vaginal cream Insert 1 applicatorful vaginally at bedtime every MON and THURS, for vaginal bleeding, for 1 month. End date 10/15/23. ferrous sulfate 325 (65 Fe) MG tablet Take 1 tablet (65 mg of iron) by mouth 2 times a day. FEOSOL 200 (65 Fe) Mg Per SNF List folic acid (Folvite) 1 mg tablet Take 1 tablet (1 mg) by mouth once daily in the morning. furosemide (Lasix) 20 mg tablet Take 1 tablet (20 mg) by mouth once daily in the morning. gabapentin (Neurontin) 100 mg capsule Take 1 capsule (100 mg) by mouth 3 times a day. glimepiride (Amaryl) 1 mg tablet Take 1 tablet (1 mg) by mouth once daily in the morning. glucagon HCL (Glucagon, HCl, Emergency Kit) 1 mg recon soln Inject 1 mg as directed if needed. If blood glucose is less than 70 and non-responsive or NPO HYDROcodone-acetaminophen ([place]) 5-325 mg tablet Take 1 tablet by mouth every 6 hours if needed (moderate to severe pain). L. acidophilus-L. rhamnosus (Probiotic) 15 billion cell capsule Take 1 capsule by mouth once daily. For 7 days ending 09/20/23. (RENEWLIFE Ultimate Jie Probiotic 15 BILLION per SNF list) lisinopril 5 mg tablet Take 0.5 tablets (2.5 mg) by mouth once daily in the morning. 2.5 mg daily magnesium hydroxide (Milk of Magnesia) 400 mg/5 mL suspension Take 30 mL by mouth once daily as needed for constipation. nitrofurantoin, macrocrystal-monohydrate, (Macrobid) 100 mg capsule Take 1 capsule (100 mg) by mouth 2 times a day. For 7 days, end date 09/20/23 ondansetron (Zofran) 4 mg tablet Take 1 tablet (4 mg) by mouth every 8 hours if needed for nausea. pantoprazole (ProtoNix) 40 mg EC tablet Take 1 tablet (40 mg) by mouth once daily. Do not crush, chew, or split. phenazopyridine (Pyridium) 100 mg tablet Take 1 tablet (100 mg) by mouth every 8 hours if needed. potassium chloride CR 20 mEq ER tablet Take 1 tablet (20 mEq) by mouth once daily in the morning. Do not crush or chew. sennosides-docusate sodium (Zarina-Colace) 8.6-50 mg tablet Take 1 tablet by mouth once daily as needed for constipation. simethicone (Mylicon) 80 mg chewable tablet Chew 1 tablet (80 mg) every 6 hours if needed for flatulence. simethicone (Mylicon) 80 mg chewable tablet Chew 1 tablet (80 mg) once daily in the morning. Scheduled simvastatin (Zocor) 10 mg tablet Take 1 tablet (10 mg) by mouth once daily at bedtime. sodium phosphates (Fleet Enema) 19-7 gram/118 mL enema enema Insert 118 mL (1 enema) into the rectum once daily as needed for constipation. Objective Last Vitals Temp Pulse Resp BP MAP O2 Sat 36.5 C (97.7 F) 83 16 132/82 100 % Physical Examination General :awake and alert, tired appearing HEENT: PEERL Pulm: lungs CTAB, satting at >95% SpO2 on 2 L NC Cards: RRR Abodmen: firm to palpation across epigastric region, soft with LLQ tenderness , active bowel sounds noted : barnes catheter in place, pelvic exam limited due to patient's mobility, no active bleeding noted on speculum exam or palpable tissue defects or prolapse noted Skin: warm and scaly Lab Review Lab Results Component Value Date WBC 4.2 (L) 09/19/2023 HGB 8.4 (L) 09/19/2023 HCT 28.2 (L) 09/19/2023 PLT 90 (L) 09/19/2023 Lab Results Component Value Date GLUCOSE 122 (H) 09/19/2023 NA 146 (H) 09/19/2023 K 3.9 09/19/2023 CL 101 09/19/2023 CO2 35 (H) 09/19/2023 ANIONGAP 14 09/19/2023 BUN 9 09/19/2023 CREATININE 0.40 (L) 09/19/2023 EGFR >90 09/19/2023 CALCIUM 8.2 (L) 09/19/2023 ALBUMIN 2.8 (L) 09/19/2023 PROT 5.7 (L) 09/18/2023 ALKPHOS 47 09/18/2023 ALT 7 09/18/2023 AST 10 09/18/2023 BILITOT 0.4 09/18/2023 Lab Results Component Value Date APTT 32 09/19/2023 PROTIME 12.3 09/19/2023 INR 1.1 09/19/2023 No results found for: FIBRINOGEN Lab Results Component Value Date BNP 154 (H) 09/19/2023 No results found for: "LACTATE" documented in this encounter [facility] Work Phone: 09-22-2023 History and physical note H&P reviewed. The patient was examined and there are no changes to the H&P. Source Note - Jeovanny Jones DO - 09/21/2023 9:27 AM EST Inpatient consult to Heart Failure Consult performed by: Jeovanny Jones DO Consult ordered by: Varsha Sotelo MD History Of Present Illness: Poli Ramirez is a 72 y.o. female presenting with LLQ abdominal pain with concern for colovesical/colovaginal fistula with diverticulitis. Past medical history significant for hypertension, hyperlipidemia, COPD on 2L, DM2, L breast cancer s/p lumpectomy, pancytopenia. She originally presented to [facility] with LLQ abdominal pain over the last 4 months. At [facility] a CT scan revealed chronic inflammation with bladder wall thickening, large diverticula with stool in sigmoid colon, and a likely benign mass in the spleen (present since previous scan in 2013). The scan was not able to exclude colovesical or colovaginal fistula. Patient had a colonoscopy several weeks ago at [facility] for work-up of the abdominal pain which was significant for a reported "obstructing mass". Per patient she needed surgery at this time, however, she was not medically optimized, so her surgeon "refused" to perform the operation. She denies previous cardiac history, chest pain, or dyspnea. During pre operative evaluation at [facility], she had a routine TTE which is significant for severely reduced LV function with EF 15-20%, global hypokinesis. She is currently not in acute decompensated heart failure. She has documental EF 55% from 2008 but no other cardiac testing/documentation available in the EMR. Heart Failure was consulted for severe cardiomyopathy, preoperative risk evaluation. Last Recorded Vitals: Vitals: 09/20/23 1713 09/20/23 2104 09/21/23 0057 09/21/23 0447 BP: 125/76 111/74 121/77 104/63 BP Location: Right arm Right arm Right arm Right arm Patient Position: Lying Lying Lying Lying Pulse: 82 98 101 95 Resp: 18 18 18 16 Temp: 36.5 C (97.7 F) 36.8 C (98.2 F) 36.6 C (97.9 F) 36.5 C (97.7 F) TempSrc: Temporal Temporal Temporal Temporal SpO2: 98% 99% 100% 100% Weight: Height: Last Labs: CBC - 09/21/2023: 6:37 AM 5.0 8.0 88 25.6 CMP - 09/21/2023: 6:37 AM 8.3 5.7 10 --- 0.4 3.4 2.7 7 47 PTT - 09/19/2023: 10:21 AM 1.1 12.3 32 BNP Date/Time Value Ref Range Status 09/19/2023 10:21 AM 154 (H) 0 - 99 pg/mL Final 09/18/2023 05:43 AM 144 (H) 0 - 99 pg/mL Final Hemoglobin A1C Date/Time Value Ref Range Status 09/18/2023 05:43 AM 4.8 see below % Final Last I/O: I/O last 3 completed shifts: In: 916 (12.2 mL/kg) [P.O.:600; I.V.:166 (2.2 mL/kg); IV Piggyback:150] Out: 1925 (25.7 mL/kg) [Urine:1925 (0.7 mL/kg/hr)] Weight: 74.8 kg Past Cardiology Tests (Last 3 Years): EK09/19/23 Echo: Transthoracic Echo (TTE) Complete 09/20/2023 CONCLUSIONS: 1. Left ventricular systolic function is severely decreased with a 15-20% estimated ejection fraction. 2. Echocontrast was utilized and excluded LV apical thrombus. 3. Spectral Doppler shows an impaired relaxation pattern of left ventricular diastolic filling. 4. Primary service notified of results at the time of reporting. 5. No prior echocardiogram available for comparison. 6. There is global hypokinesis of the left ventricle with minor regional variations. Cath: No results found for this or any previous visit from the past 1095 days. Stress Test: No results found for this or any previous visit from the past 1095 days. Past Medical History: She has a past medical history of Personal history of irradiation, Personal history of malignant neoplasm of breast, Personal history of other diseases of the circulatory system, Personal history of other diseases of the circulatory system, Personal history of other diseases of the digestive system, Personal history of other diseases of the digestive system, Personal history of other diseases of the musculoskeletal system and connective tissue, Personal history of other diseases of the respiratory system, and Personal history of other endocrine, nutritional and metabolic disease. Past Surgical History: She has a past surgical history that includes Cholecystectomy (04/22/2014); Cataract extraction (04/22/2014); Other surgical history (07/14/2020); Other surgical history (07/14/2020); Other surgical history (07/14/2020); Other surgical history (07/14/2020); Other surgical history (07/14/2020); Other surgical history (07/14/2020); and Other surgical history (07/14/2020). Social History: She has no history on file for tobacco use, alcohol use, and drug use. Family History: No family history on file. Allergies: Flexeril [cyclobenzaprine] and Zanaflex [tizanidine] Inpatient Medications: Scheduled medications Medication Dose Route Frequency cefTRIAXone 1 g intravenous q24h enoxaparin 40 mg subcutaneous q24h insulin lispro 0-5 Units subcutaneous q4h LORazepam 0.5 mg intravenous Once metroNIDAZOLE 500 mg intravenous q8h perflutren protein A microsphere 0.5 mL intravenous Once in imaging sulfur hexafluoride microsphr 2 mL intravenous Once in imaging PRN medications Medication acetaminophen dextrose 10 % in water (D10W) dextrose glucagon HYDROmorphone ondansetron Or ondansetron oxyCODONE oxyCODONE Continuous Medications Medication Dose Last Rate Outpatient Medications: Current Outpatient Medications Medication Instructions acetaminophen (TYLENOL) 650 mg, oral, Nightly, Scheduled acetaminophen (TYLENOL) 650 mg, oral, Every 4 hours PRN, MAX 3GM/24HR acetaminophen (TYLENOL) 650 mg, oral, Every morning, Scheduled bisacodyl (DULCOLAX) 10 mg, rectal, Daily PRN calcium carbonate (Tums) 200 mg calcium chewable tablet 1 tablet, oral, 2 times daily, For gas/stomach pains. Give with breakfast and supper. carvedilol (COREG) 3.125 mg, oral, 2 times daily cranberry fruit 400 mg tablet 1 tablet, oral, Daily, For UTI prevention cyanocobalamin (Vitamin B-12) 1,000 mcg tablet 1 tablet, oral, Every morning cyanocobalamin (VITAMIN B-12) 500 mcg, oral, Nightly dicyclomine (BENTYL) 20 mg, oral, Every 8 hours PRN, For abdominal pain dicyclomine (BENTYL) 20 mg, oral, 2 times daily, Scheduled estrogens, conjugated, (Premarin) vaginal cream Insert 1 applicatorful vaginally at bedtime every MON and THURS, for vaginal bleeding, for 1 month. End date 10/15/23. ferrous sulfate 325 (65 Fe) MG tablet 65 mg of iron, oral, 2 times daily, FEOSOL 200 (65 Fe) Mg Per SNF List folic acid (FOLVITE) 1 mg, oral, Every morning furosemide (LASIX) 20 mg, oral, Every morning gabapentin (NEURONTIN) 100 mg, oral, 3 times daily glimepiride (AMARYL) 1 mg, oral, Every morning glucagon HCL (GLUCAGON (HCL) EMERGENCY KIT) 1 mg, injection, As needed, If blood glucose is less than 70 and non-responsive or NPO HYDROcodone-acetaminophen ([place]) 5-325 mg tablet 1 tablet, oral, Every 6 hours PRN lisinopril 5 mg tablet 0.5 tablets, oral, Every morning, 2.5 mg daily magnesium hydroxide (Milk of Magnesia) 400 mg/5 mL suspension 30 mL, oral, Daily PRN ondansetron (Zofran) 4 mg tablet 1 tablet, oral, Every 8 hours PRN pantoprazole (PROTONIX) 40 mg, oral, Daily, Do not crush, chew, or split. phenazopyridine (PYRIDIUM) 100 mg, oral, Every 8 hours PRN potassium chloride CR 20 mEq ER tablet 20 mEq, oral, Every morning, Do not crush or chew. sennosides-docusate sodium (Zarina-Colace) 8.6-50 mg tablet 1 tablet, oral, Daily PRN simethicone (MYLICON) 80 mg, oral, Every 6 hours PRN simethicone (MYLICON) 80 mg, oral, Every morning, Scheduled simvastatin (ZOCOR) 10 mg, oral, Nightly sodium phosphates (Fleet Enema) 19-7 gram/118 mL enema enema 1 enema, rectal, Daily PRN Physical Exam: Physical Exam Constitutional: General: She is not in acute distress. HENT: Mouth/Throat: Mouth: Mucous membranes are moist. Eyes: Extraocular Movements: Extraocular movements intact. Pupils: Pupils are equal, round, and reactive to light. Cardiovascular: Rate and Rhythm: Normal rate and regular rhythm. Heart sounds: No murmur heard. Pulmonary: Effort: Pulmonary effort is normal. No respiratory distress. Breath sounds: No rales. Abdominal: General: There is no distension. Palpations: Abdomen is soft. Skin: General: Skin is warm and dry. Neurological: General: No focal deficit present. Mental Status: She is alert and oriented to person, place, and time. Psychiatric: Mood and Affect: Mood normal. Assessment/Plan #Newly diagnosed cardiomyopathy, EF 15-20%. Unclear if she had any interval echos since 2008 with a preserved EF. She was refused from a surgical intervention at [place] which sounds like it may have been due to her heart disease. 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 Still being worked up by primary team, no surgery planned as of yet #Hypertension #Hyperlipidemia #COPD on 2L chronically Recommendations: Please obtain her records from [facility] for any echos, or cardiac consultations/testing. Start metoprolol succinate 12.5 mg daily Start losartan 25 mg daily Start spironolactone 12.5 mg daily If there is urgent surgical intervention planned this admission, she will need coronary ischemic evaluation with either coronary CT or Left heart catheterization. If no surgery offered or planned this admission, she can have cardiology follow up outpatient for further testing. Will continue to follow. Discussed with HF attending, Dr. Antoni Barajas, Jeovanny Jones DO PGY-4 Advanced Heart Failure Fellow Images from the original note were not included. Colorectal Surgery Consult H&P Poli Ramirez [phone] Consults Reason for admission: We were consulted by [facility] to take over as primary on this pt. Consulted for: Suspicion for colovesical/colovaginal fistula Subjective This is a 72-year-old female with past medical history significant for hypertension on Lasix and lisinopril, hyperlipidemia, COPD (on 2 L nasal cannula at home), type 2 diabetes (not on insulin at home), left breast cancer status post lumpectomy, pancytopenia, open cholecystectomy and appendectomy who presents as a transfer from [facility] due to left lower quadrant abdominal pain suspicious for colovesical/colovaginal fistula and diverticulitis on CT. Patient reports left lower quadrant abdominal pain for the last 4 months. Pain worsened 2 nights ago at which time she presented to [facility]. Patient also reports 4 weeks ago she began having vaginal bloody discharge and dark brown/red urine with dysuria. Patient denies any difficulty urinating however she endorses the vaginal discharge/urine has a foul odor to it. Patient had a colonoscopy several weeks ago at [facility] for work-up of the abdominal pain which was significant for a reported "obstructing mass" however as per the patient she is unaware if a biopsy was taken. As per patient she needed surgery at this time, however, she was not medically optimized, so her surgeon "refused" to perform the operation. Patient previously had a colonoscopy within the last 10 years that was reportedly normal. At [facility] a CT scan revealed chronic inflammation with bladder wall thickening, large diverticula with stool in sigmoid colon, and a likely benign mass in the spleen (present since previous scan in 2013). The scan was not able to exclude colovesical or colovaginal fistula. Of note patient reports decreased appetite over the last 2 months with weight loss of a reported 100 pounds in this time. Patient also endorses previous episodes of nausea with episodes of constipation/diarrhea. Patient denies fever, chest pain, shortness of breath, emesis, hematochezia/maroon-colored stools. Patient does endorse black stools due to her iron pill, however she has been having this for the last year. 14 point ROS conducted and negative unless otherwise stated in HPI. Objective Temp: [36 C (96.8 F)-37.1 C (98.8 F)] 36.9 C (98.4 F) Heart Rate: [89-96] 96 Resp: [17-18] 18 BP: (100-125)/(51-79) 125/70 Physical Exam: Gen: Well-appearing, no acute distress Resp: Nonlabored breathing on 2 L of nasal cannula Card: Regular rate and rhythm Abdomen: Soft, nondistended, tender to deep palpation of LLQ : external cathether in place MSK: no swelling peripherally in BLE Psych: Appropriate mood and affect Neuro: AO x3 Anorectal: Deferred. I/O last 3 completed shifts: In: 833.3 (11.1 mL/kg) [I.V.:683.3 (9.1 mL/kg); IV Piggyback:150] Out: 250 (3.3 mL/kg) [Urine:250 (0.1 mL/kg/hr)] Weight: 74.8 kg I/O this shift: In: - Out: 800 [Urine:800] Data Review: CBC: Lab Results Component Value Date WBC 3.4 (L) 09/16/2023 RBC 2.84 (L) 09/16/2023 BMP: Lab Results Component Value Date GLUCOSE 88 09/16/2023 CO2 40 (HH) 09/16/2023 BUN 12 09/16/2023 CREATININE 0.40 (L) 09/16/2023 CALCIUM 8.8 09/16/2023 Coagulation: Lab Results Component Value Date INR 1.0 09/15/2023 APTT 24 (L) 09/15/2023 Imaging: CT A/P on 09/15/23 from OSH was reviewed with radiology. Chronic inflammation throughout abdomen. Bladder wall is thickened. Large diverticulum with stool in sigmoid colon. Cannot exclude colovesical colovaginal fistula. Possible malignancy involving the spleen and left adrenal gland. Assessment & Plan: This is a 72-year-old female with past medical history significant for hypertension HTN, HLD, COPD (on 2 L nasal cannula at home), type 2 diabetes, pancytopenia who presents as a transfer from [facility] due to left lower quadrant abdominal pain suspicious for colovesical/colovaginal fistula and diverticulitis on CT. Physical exam and imaging (review radiology) is suspicious for fistula. Will work on medical optimization and acquiring outside hospital colonoscopy results for further work-up. Will engage Dr. Apple for optimization, appreciate reccs. Neuro: Continue current pain regimen with IV pain meds (diaudid PRN) Resp: NC 2L, ICS Card: continue home coreg, holding lisinopril and lasix FEN: IVF @ 50 LR GI: Soft diet plus Glucerna for protein calorie malnutrition Endo: DM sliding scale insulin : Barnes in place Heme/ID: AM labs Ppy: Lovenox 40mg daily, SCDs Dispo: Continue care on RNF. Plans discussed with staff, Dr. Deepak Brenner MD, MD Colorectal Surgery [facility] Service Pager [phone] [facility] ACUTE CARE SURGERY - HISTORY AND PHYSICAL / CONSULT Patient Name: Poli Ramirez Admit Date: [id number] : 1950 AGE: 72 y.o. GENDER: female TODAY'S ASSESSMENT AND PLAN OF CARE: NPO w/ IVF IV ceftriaxone and metronidazole Pain and nausea control as needed Interdisciplinary care with Colorectal Surgery for further workup including imaging and/or colonoscopy Gina Ruhs MD [facility] [phone] CHIEF COMPLAINT/REASON FOR CONSULT: Poli Ramirez is a 72 yo F, medical history significant for HTN, HLD, COPD (on 2L NC at home), T2DM, left breast cancer (ER positive, T1c, N0, cM0) s/p left lumpectomy, pancytopenia, and open cholecystectomy, appendectomy, who was transferred from [facility] for an intraabdominal abscess, diverticulitis, and a possible colovesical and/or colovaginal fistula. Patient was seen at the OSH ED for constant, worsening LLQ abdominal pain which started about 3-4 months ago. On presentation, labs showed hemoglobin 8.3 (baseline around 9), WBC 3.6, and lactate 0.6. CT scan was concerning for a 4.5 X 4 cm abscess adjacent to the bladder, diverticulitis, and a possible colovesical and/or colovaginal fistula. In addition to abdominal pain, patient reports she noticed bright red vaginal bleeding which started about three weeks ago. Unable to estimate the amount of bleeding. She admits to lightheadedness and dizziness for the past few years, unintentional weight loss of 70 lbs in the past 1.5 months, night sweats, 1-2 episodes of nausea per week, and alternating constipation and diarrhea. Denies fevers, chest pain, shortness of breath, vomiting, melena, or hematochezia. Patient states she had a colonoscopy a few weeks ago at [facility] but was told they did not reach the ileocecal valve due to an obstructing mass and no biopsies were taken. She adds she was referred to a surgeon at [facility] but says "the doctor refused surgery because my heart couldn't handle it". She reports she had a colonoscopy about 10 years ago which was normal. PAST MEDICAL HISTORY: PMH: Past Medical History: Diagnosis Date Personal history of irradiation History of radiation therapy Personal history of malignant neoplasm of breast Personal history of malignant neoplasm of breast Personal history of other diseases of the circulatory system History of hypertension Personal history of other diseases of the circulatory system Personal history of coronary atherosclerosis Personal history of other diseases of the digestive system History of hiatal hernia Personal history of other diseases of the digestive system History of gastroesophageal reflux (GERD) Personal history of other diseases of the musculoskeletal system and connective tissue Personal history of rheumatoid arthritis Personal history of other diseases of the respiratory system History of chronic obstructive lung disease Personal history of other endocrine, nutritional and metabolic disease History of diabetes mellitus PSH: Past Surgical History: Procedure Laterality Date CATARACT EXTRACTION 04/22/2014 Cataract Surgery CHOLECYSTECTOMY 04/22/2014 Cholecystectomy OTHER SURGICAL HISTORY 07/14/2020 Tubal ligation OTHER SURGICAL HISTORY 07/14/2020 Knee arthroscopy OTHER SURGICAL HISTORY 07/14/2020 Appendectomy OTHER SURGICAL HISTORY 07/14/2020 Cardiac catheterization OTHER SURGICAL HISTORY 07/14/2020 Colonoscopy OTHER SURGICAL HISTORY 07/14/2020 Esophagogastroduodenoscopy OTHER SURGICAL HISTORY 07/14/2020 Lumpectomy FH: Gastric cancer (father), breast cancer (sister); denies family history of colorectal cancer or IBD SOCIAL HISTORY: Smoking: previously smoked one pack per week since 1969, quit in 1999 Alcohol: previously drank 1-2L of vodka per week since 1969, quit in 1999 Drug use: denies recreational drug use MEDICATIONS: Prior to Admission medications Not on File ALLERGIES: Allergies Allergen Reactions Flexeril [Cyclobenzaprine] Unknown Zanaflex [Tizanidine] Unknown REVIEW OF SYSTEMS: As reported in HPI PHYSICAL EXAM: General: laying in bed, in no acute distress Eyes: nonicteric Pulm: nonlabored on 2L NC Cardiac: RRR GI: soft, tender in LUQ and LLQ, nondistended, nonperitonitic, oblique scar in RUQ MSK: ОЛЬГА Extremities: no edema Skin: warm, dry Neuro: awake, alert, conversive IMAGING SUMMARY: CT A/P on 09/15/23 from OSH was reviewed with radiology. Chronic inflammation throughout abdomen. Bladder wall is thickened. Large diverticulum with stool in sigmoid colon. Cannot exclude colovesical colovaginal fistula. Possible malignancy involving the spleen and left adrenal gland. LABS: Results for orders placed or performed during the hospital encounter of 09/15/23 (from the past 24 hour(s)) CBC and Auto Differential Result Value Ref Range WBC 3.5 (L) 4.4 - 11.3 x10*3/uL nRBC 0.0 0.0 - 0.0 /100 WBCs RBC 2.65 (L) 4.00 - 5.20 x10*6/uL Hemoglobin 7.9 (L) 12.0 - 16.0 g/dL Hematocrit 27.8 (L) 36.0 - 46.0 % MCV 105 (H) 80 - 100 fL MCH 29.8 26.0 - 34.0 pg MCHC 28.4 (L) 32.0 - 36.0 g/dL RDW 13.9 11.5 - 14.5 % Platelets 123 (L) 150 - 450 x10*3/uL Neutrophils % 71.6 40.0 - 80.0 % Immature Granulocytes %, Automated 0.6 0.0 - 0.9 % Lymphocytes % 19.2 13.0 - 44.0 % Monocytes % 6.6 2.0 - 10.0 % Eosinophils % 1.7 0.0 - 6.0 % Basophils % 0.3 0.0 - 2.0 % Neutrophils Absolute 2.50 1.60 - 5.50 x10*3/uL Immature Granulocytes Absolute, Automated 0.02 0.00 - 0.50 x10*3/uL Lymphocytes Absolute 0.67 (L) 0.80 - 3.00 x10*3/uL Monocytes Absolute 0.23 0.05 - 0.80 x10*3/uL Eosinophils Absolute 0.06 0.00 - 0.40 x10*3/uL Basophils Absolute 0.01 0.00 - 0.10 x10*3/uL Comprehensive metabolic panel Result Value Ref Range Glucose 88 74 - 99 mg/dL Sodium 145 136 - 145 mmol/L Potassium 4.2 3.5 - 5.3 mmol/L Chloride 100 98 - 107 mmol/L Bicarbonate 39 (H) 21 - 32 mmol/L Anion Gap 10 10 - 20 mmol/L Urea Nitrogen 13 6 - 23 mg/dL Creatinine 0.45 (L) 0.50 - 1.05 mg/dL eGFR >90 >60 mL/min/1.73m*2 Calcium 8.8 8.6 - 10.6 mg/dL Albumin 3.0 (L) 3.4 - 5.0 g/dL Alkaline Phosphatase 47 33 - 136 U/L Total Protein 6.1 (L) 6.4 - 8.2 g/dL AST 10 9 - 39 U/L Bilirubin, Total 0.6 0.0 - 1.2 mg/dL ALT 10 7 - 45 U/L Magnesium Result Value Ref Range Magnesium 2.13 1.60 - 2.40 mg/dL Blood Culture Specimen: Peripheral Venipuncture; Blood culture Result Value Ref Range Blood Culture Loaded on Instrument - Culture in progress Blood Culture Specimen: Peripheral Venipuncture; Blood culture Result Value Ref Range Blood Culture Loaded on Instrument - Culture in progress Coagulation Screen Result Value Ref Range Protime 11.6 9.8 - 12.8 seconds INR 1.0 0.9 - 1.1 aPTT 24 (L) 27 - 38 seconds I have reviewed all laboratory and imaging results ordered/pertinent for this encounter. Associated attestation - Delfin Melara MD - 09/22/2023 8:15 PM EST I saw and examined the patient. I discussed the patient's care with the resident/MARCY team. I agree with the note with the additions/clarifications below. Late entry for 09/16/23 Transfer from OSH 72 yo female with possible colovaginal and colovesicular fistulas. 70 pound unintentional weight loss. Report of stool per vagina and gas with urination. On exam, chronically ill appearing. Abd is soft, ND and mildly tender. No peritonitis. Labs reviewed and pancytopenia. Imaging reviewed No indication for acute surgical intervention. Plan for ABX, NPO, review imaging with colorectal surgery, obtain OSH colonoscopy report, DVT chemoprophylaxis, full code. documented in this encounter [facility] Work Phone: 09-15-2023 Discharge summary Note Date/Time September 15, 2023 1:09am [facility] Medical Records Department [address] [place] [address] Emergency Department Summary 09/15/23 MR#: [id number] Acct: [id number] Name: POLI RAMIREZ Rep #:[id number] : 1950 72 From: Calvin Hester DO PCP: Dr. Jonathan Dillard Sr., DO Status:R EG ER Location: ED ADDENDUM by Dr. Jerad Thomas MD on 09/15/23 at 1326 Patient was turned over to [place] pending transfer. Physician at [facility] accepted. But there is no bed currently. The thought was that there would be a bed after morning discharges. But we have checked back at noon and there are no available beds. At this point we will bring her in the hospital here pending that transfer. I did discuss the case again with both surgery and hospitalist. 09/15/23 1326<Electronically signed by Jerad Thomas MD> Cosigner Signature (if applicable): cc: Dr. Jonathan Dillard Sr., DO ~* Signed HPI History of Present Illness Chief Complaint: Abd Pain Informant: patient, EMS and SNF Narrative Narrative: Patient is a 71-[facility]-old [facility] with past medical history of COPD on oxygen 06/06 as well as congestive heart failure hypertension and diabetes. She has been evaluated over the past 4 to 5 months for recurrent abdominal pain and found to have chronic colitis. There is concern this could be related to a potential malignancy. The patient is on [place] secondary to this. Reportedly she recently was diagnosed with UTI as well and has been placed on antibiotics. 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 Chronic respiratory failure with hypoxia Colitis COPD (chronic obstructive pulmonary disease) Dysphagia Essential hypertension GERD (gastroesophageal reflux disease) History of falling Insomnia, unspecified Iron deficiency anemia Lung nodules Muscle weakness (generalized) Myocardial infarction Obstructive sleep apnea On mechanically assisted ventilation Other displaced fracture of seventh cervical vertebra, subsequent encounter for fracture with routine healing Other displaced fracture of sixth cervical vertebra, subsequent encounter for fracture with routine healing Other lack of coordination Other pancytopenia Personal history of malignant neoplasm of breast Personal history of nicotine dependence Pneumonia Primary osteoarthritis, left shoulder Primary osteoarthritis, right shoulder Pure hypercholesterolemia Respiratory failure with hypoxia Thrombocytopenia Type 2 diabetes mellitus with diabetic neuropathy Unspecified abnormalities of gait and mobility Urinary incontinence Venous insufficiency Venous insufficiency (chronic) (peripheral) Vitamin B12 deficiency Home Medications nystatin 100,000 unit/gram topical cream 1 applic topical BID Check with primarydoctor 11/24/21 [History Last Taken Unknown] simvastatin 10 mg tablet 10 mg PO QHS CHOLESTEROL 11/24/21 [History Last Taken Unknown] bisacodyl 10 mg rectal suppository 10 mg PA DAILY PRN constipation 11/11/22 [History Last Taken Unknown] cranberry 400 mg capsule 400 mg PO DAILY SUPPLEMENT 11/11/22 [History Last Taken Unknown] folic acid 1 mg tablet 1 mg PO DAILY SUPPLEMENT 11/11/22 [History Last Taken Unknown] acetaminophen 325 mg tablet 650 mg PO QHS PAIN 04/19/23 [History Last Taken Unknown] carvedilol 3.125 mg tablet 3.125 mg PO BID HEART 04/19/23 [History Last Taken Unknown] gabapentin 100 mg capsule 100 mg PO TID NERVE PAIN 04/19/23 [History Last Taken Unknown] lisinopril 2.5 mg tablet 2.5 mg PO DAILY BLOOD PRESSURE 04/19/23 [History Last Taken Unknown] potassium chloride 20 mEq tablet,extended release(part/cryst) 20 meq PO DAILY SUPPLEMENT 04/19/23 [History Last Taken Unknown] ferrous sulfate 325 mg (65 mg iron) tablet 325 mg PO BID 05/04/23 [History Last Taken Unknown] ondansetron HCl 4 mg tablet 4 mg PO Q8H PRN nausea and vomiting 05/04/23 [History Last Taken Unknown] pantoprazole 40 mg tablet,delayed release 40 mg PO DAILY 05/04/23 [History Last Taken Unknown] sennosides 8.6 mg-docusate sodium 50 mg capsule (Senna Plus) 1 tab-cap PO BID PRN constipation 05/04/23 [History Last Taken Unknown] simethicone 80 mg chewable tablet (Gas Relief (simethicone)) 80 mg PO DAILY abdominal distention 05/04/23 [History Last Taken Unknown] hydrocodone-acetaminophen 5-325mg 5mg-325mg 1 tab PO Q6H PRN PRN Pain 3 days #12TABLETS 07/14/23 [Rx Last Taken Unknown] cyanocobalamin (vitamin B-12) 500 mcg tablet (B-12 DOTS) 500 mcg PO QHS 08/09/23[History Last Taken Unknown] dicyclomine 20 mg tablet 20 mg PO BID abdominal pain 08/09/23 [History Last Taken Unknown] magnesium hydroxide 400 mg/5 mL oral suspension 30 ml PO DAILY PRN constipation 08/09/23 [History Last Taken Unknown] calcium carbonate 500 mg calcium (1,250 mg) chewable tablet (Calcium 500) 500 mgPO BID 09/14/23 [History Last Taken Unknown] conjugated estrogens 0.625 mg/gram vaginal cream (Premarin) 1 applic vaginal QHS09/14/23 [History Last Taken Unknown] furosemide 20 mg tablet 20 mg PO DAILY 09/14/23 [History Last Taken Unknown] glimepiride 1 mg tablet 1 mg PO DAILY 09/14/23 [History Last Taken Unknown] nitrofurantoin monohydrate/macrocrystals 100 mg capsule 100 mg PO BID 09/14/23 [History Last Taken Unknown] phenazopyridine 100 mg tablet (Pyridium) 100 mg PO Q8H PRN dysuria 09/14/23 [History Last Taken Unknown] Allergy/AdvReac Type Severity Reaction Status Date / Time cyclobenzaprine Allergy Other Verified 09/14/23 22:50 [From Flexeril] tizanidine [From Zanaflex] Allergy Other Verified 09/14/23 22:50 Family History Sister Breast cancer Grandmother Diabetes Surgical History History of lumpectomy of left breast Hx of cervical spine surgery Hx of cholecystectomy Social History housing: [facility] Smoking Status: Former smoker alcohol intake: never substance use type: does not use EXAM Physical Exam Const Vital Signs: 09/14/23 22:45 09/15/23 01:27 09/15/23 03:37 Temperature 98.6 F Temperature Source Oral Pulse Rate 88 89 97 Respiratory Rate 16 15 15 Blood Pressure 113/67 113/48 L 107/57 L Blood Pressure Mean 82 69 73 Pulse Ox 98 100 100 Oxygen Delivery Method Room Air Nasal Cannula Nasal Cannula Oxygen Flow Rate (L/min) 2 2 09/15/23 04:28 09/15/23 05:12 Temperature Temperature Source Pulse Rate 96 95 Respiratory Rate 18 18 Blood Pressure 104/53 L 96/58 L Blood Pressure Mean 70 70 Pulse Ox 99 99 Oxygen Delivery Method Nasal Cannula Nasal Cannula Oxygen Flow Rate (L/min) 2 2 MDM MDM MDM Narrative Medical decision making narrative: Patient presented to the ER afebrile and normotensive satting 98% on her normal 2 L. She reported a longstanding history of recurrent abdominal pain however she also reported the pain has been controlled with [place] and now is no longer controlling her pain and she has symptoms of intermittent vaginal bleeding. Secondary to the worsening pain and new symptoms that elected for repeat laboratory studies and a repeat CT scan with IV contrast. Labs reveal chronic findings such as anemia but near patient's baseline and no lactic acidosis. CT scan now showed a 4.5 x 4 cm fluid collection within the sigmoid colon consistent with a abscess and/or perforation with compression of the bladder anduterus and concern for developing fistulas. Secondary to the abscess blood cultures were obtained and patient was started on Zosyn. The case was discussedwith general surgeon on-call Dr. Delarosa. He reviewed the patient's CT scan and feels that patient may need interventional radiology for a IR drain or potentially evaluation by colorectal surgeon as well as urology and gynecology consult and he feels that this would need a higher level of care. The patient was informed of this and does agree to transfer. The case was discussed with Dr. Landon/surgery from [facility]. She agrees to accept the patient in transfer at this time to evaluate the patient and discuss interventional options. She request that the patient be continued on Zosyn. At this time the patient has been accepted but they will not have a bed until morning discharges but as she is hemodynamically stable and not showing signs of sepsis or obstruction I do not feel there is need for a emergent ER to ER transfer or transfer to a different facility and therefore patient be held in this ER until a bed is available. History & Record Review Discussion w/independent historian: Patient Lab Data Attestation: I reviewed the patient's lab results. Labs: Laboratory Results - last 24 hr 09/14/23 09/15/23 09/15/23 23:40 02:13 02:25 WBC 3.6 L RBC 2.80 L Hgb 8.3 L Hct 28.8 L MCV 102.9 H MCH 29.6 MCHC 28.8 L RDW Std Deviation 53.0 H RDW Coeff of Amanda 14.1 Plt Count 109 L MPV 8.8 Immature Gran % (Auto) 1.100 H Neut % (Auto) 70.5 H Lymph % (Auto) 19.5 Sevier % (Auto) 7.8 Eos % (Auto) 0.8 Baso % (Auto) 0.3 Absolute Neuts (auto) 2.5 Absolute Lymphs (auto) 0.70 L Nucleated RBC % 0 PT 13.0 INR 1.0 APTT 29.8 Sodium 144 Potassium 4.0 Chloride 101 Carbon Dioxide 41.0 H Anion Gap 2 L BUN 21 H Creatinine 0.82 Estim Creat Clear Calc 54.98 Est GFR (MDRD) Af Amer 87 Est GFR (MDRD) Non-Af 72 BUN/Creatinine Ratio 25.5 H Glucose 134 H Lactic Acid 0.6 Calcium 9.0 Total Bilirubin 0.40 Direct Bilirubin 0.09 AST 10 L ALT 18 Alkaline Phosphatase 66 Total Protein 6.9 Albumin 2.5 L Globulin 4.4 H Lipase 24 Urine Color Yellow Urine Clarity Clear Urine pH 6.0 Ur Specific Highland 1.010 Urine Protein 30 H Urine Glucose (UA) Normal Urine Ketones Negative Urine Occult Blood 50 H Urine Nitrite Positive H Urine Bilirubin Negative Urine Urobilinogen 1 H Ur Leukocyte Esterase 100 H Urine RBC 0-5 SEEN Urine WBC 10-25 SEEN Ur Squamous Epith Cells 0 SEEN Urine Bacteria 1+ Urine Mucus 0 SEEN Radiography Diagnostic Testing: Clinical Impression(s) from Imaging Studies Abdomen/Pelvis CT 09/15/23 00:07 IMPRESSION: 1. Findings consistent with acute / persistent sigmoid diverticulitis with contained perforation or abscess. 2. Marked diffuse bladder wall thickening with mass effect from the adjacent collection may be reactive. At risk for colovesical fistula. 3. Inflammatory changes also abut the uterus. Tiny foci of air in the vagina or cervix, may be at risk for colovaginal fistula. 4. Mildly dilated small bowel in the left lower abdomen likely secondary to ileus. 5. Other findings stable including 9 cm splenic mass and multiple smaller splenic lesions, multiple pancreatic cystic lesions, and left adrenal 3 cm mass. Nodular structures in the left inferior breast. Further imaging characterization needed for these lesions, which may be benign or malignant. Electronically Signed: Jocy Min MD at 2:10 EDT , ADDENDUM: 09/15/23221 IMPRESSION: 1. Findings consistent with acute / persistent sigmoid diverticulitis with contained perforation or abscess. 2. Marked diffuse bladder wall thickening with mass effect from the adjacent collection may be reactive. At risk for colovesical fistula. 3. Inflammatory changes also abut the uterus. Tiny foci of air in the vagina or cervix, may be at risk for colovaginal fistula. 4. Mildly dilated small bowel in the left lower abdomen likely secondary to ileus. 5. Other findings stable including 9 cm splenic mass and multiple smaller splenic lesions, multiple pancreatic cystic lesions, and left adrenal 3 cm mass. Nodular structures in the left inferior breast. Further imaging characterization needed for these lesions, which may be benign or malignant. N.B. : The above Results were Read Back by Jocy Min MD to calvin hester DO, and understanding confirmed on 09/15/2023 02:15:43 (ET). Electronically Signed: Jocy Min MD at 2:10 EDT , Management Discussion w/another healthcare provider: Specialist Wound Care and Other Discharge Plan Triage Chief Complaint: Abd Pain ED Provider: Calvin Hester Dx/Rx/DC Orders Clinical Impression: Type 2 diabetes mellitus, Abscess of intestine, COPD (chronic obstructive pulmonary disease), Chronic anemia Prescriptions: No Action bisacodyl 10 mg suppository 10 mg PA DAILY PRN (Reason: constipation) cranberry 400 mg capsule 400 mg PO DAILY folic acid 1 mg tablet 1 mg PO DAILY ferrous sulfate 325 mg (65 mg iron) tablet 325 mg PO BID ondansetron HCl 4 mg tablet 4 mg PO Q8H PRN (Reason: nausea and vomiting) pantoprazole 40 mg tablet,delayed release (DR/EC) 40 mg PO DAILY Senna Plus 8.6-50 mg capsule 1 tab-cap PO BID PRN (Reason: constipation) simethicone [Gas Relief (simethicone)] 80 mg tablet,chewable 80 mg PO DAILY nystatin 100,000 unit/gram cream 1 applic TOPICAL BID simvastatin 10 mg tablet 10 mg PO QHS acetaminophen 325 mg Tablet 650 mg PO QHS potassium chloride 20 mEq tablet,ER particles/crystals 20 meq PO DAILY gabapentin 100 mg capsule 100 mg PO TID carvedilol 3.125 mg tablet 3.125 mg PO BID lisinopril 2.5 mg tablet 2.5 mg PO DAILY hydrocodone-acetaminophen 5-325 mg tablet 1 tab PO Q6H PRN PRN (Reason: Pain) 3 Days Qty: 12 0RF glimepiride 1 mg tablet 1 mg PO DAILY furosemide 20 mg tablet 20 mg PO DAILY nitrofurantoin monohyd/m-cryst 100 mg capsule 100 mg PO BID Patient Comments: stop 09/19/23 calcium carbonate [Calcium 500] 500 mg calcium (1,250 mg) tablet,chewable 500 mg PO BID phenazopyridine [Pyridium] 100 mg tablet 100 mg PO Q8H PRN (Reason: dysuria ) Premarin 0.625 mg/gram cream 1 applic vaginal QHS dicyclomine 20 mg tablet 20 mg PO BID magnesium hydroxide 400 mg/5 mL suspension 30 ml PO DAILY PRN (Reason: constipation) cyanocobalamin (vitamin B-12) [B-12 DOTS] 500 mcg tablet 500 mcg PO QHS Primary Care Provider: Jonathan Dillard Sr. Referrals: Jonathan Dillard Sr., [Primary Care Provider] - Disposition Disposition: Acute Care Hospital Discharge Location: Main What to do if you have Problems For any increased pain, shortness of breath, bleeding, nausea or vomiting, chestpain, or any unexpected problems, contact your Primary Care Provider. Call [facility] ([phone]) or report to the closest Emergency Room. Call 911 if necessary. 09/15/23 0535 <Electronically signed by Calvin Hester DO> Cosigner Signature (if applicable): CC: Dr. Jonathan Dillard Sr., ~ Signed [facility] Work Phone: [phone] 773-802510-06-2023 Evaluation + Plan note Future Scheduled Tests Radiology* MRI Pancreas 08/19/23 [facility] 10-04-2023 Note ORIGINAL EXAMINATION: BARIUM ENEMA08/17/2023 12:07 pm BARIUM ENEMA TECHNIQUE: Fluoroscopic time: 257 seconds Total dose (Reference Air Kerma): 309.70 MGy A double-contrast barium enema was attempted initially. The patient was unable to tolerate distension with the barium and also has significantly limited mobility which precludes a satisfactory double-contrast study. The study was then converted to a single contrast examination. A small amount of air was also insufflated during the study. Barium was advanced with some difficulty into the right-sided colon. It is uncertain if the entire right-sided colon and cecum are adequately opacified, no reflux into the ileum is seen. Limited overhead radiographs are obtained, again due to limited patient mobility. COMPARISON: None HISTORY: ORDERING SYSTEM PROVIDED HISTORY: Reason for Exam: DIVERTICULITIS, suspected sigmoid stricture, unable to complete colonoscopy FINDINGS: Preliminary abdominal radiograph shows nonobstructive bowel gas pattern. No significant stool burden. Degenerative changes in the hips and spine. Left mid abdominal 4 mm calcification insert location. The contrast study shows no fixed narrowing in the rectum and sigmoid region. In the distal descending colon there is an area of persistent irregular narrowing of the colonic lumen. There is some shouldering of this lesion and distortion of mucosal folds. Multiple diverticula are seen in this region also and there is mild intravasation of contrast into the colonic wall that can be seen with diverticular disease. No extraluminal extension of contrast is appreciated. The length of the stenotic segment is about 6 cm. There is a questionable 2nd tandem lesion just proximal to this area of narrowing but this does not seem to be persistent and is only seen on some of the images perhaps artifactual area of under distension. The remainder of the colon is not adequately evaluated due to overlapping and density of contrast. No other fixed narrowing is appreciated. No post evacuation images. IMPRESSION: Limited essentially single contrast study. There is a persistent irregular narrowing in the distal descending colon region as described. Uncertain if this is from inflammatory process such as diverticulitis or neoplasm. Interpreted by: Levi Jimenez MD Preliminary Report By: Levi Jimenez MD Electronically signed By Levi Jimenez MD Dictated Date: 08/17/2023 3:39:39 PM Prelim Date: 08/17/2023 3:50:07 PM Sign Date: 08/17/2023 3:50:07 PM Ordering Provider: [facility]10[facility]02-2023 Hospital Discharge instructions Patient Education 08/15/2023 12:07:59 Barium Enema Barium Enema A barium enema is a medical test in which X-rays are taken to check for problems in the colon or inthe lower part of the small bowel. The colon is also called the large intestine. This procedure is sometimes called a lower gastrointestinal (GI) series. For this test, a white, chalky liquid called barium will be put into your colon through your anus. A series of X-rays will be done while the barium passes through your colon. The barium shows up wellon X-rays, making it easier for your health care provider to see the inside of your colon. A barium enema may be done to check for various problems, such as: Growths in the colon or rectum (polyps). Abnormal growths of tissue and cells (tumors). Abnormal pouches (diverticula). Inflammation of the digestive tract (Crohn's disease). Other inflammatory bowel diseases (IBD). Your health care provider may recommend this procedure if you have symptoms such as: Pain in the abdomen. Blood in the stool (feces). Tell a health care provider about: Any allergies you have, especially allergies to substances that are used in certain imaging tests (contrast materials). All medicines you are taking, including vitamins, herbs, eye drops, creams, and jwrb-xdg-bymeynx medicines. Any blood disorders you have. Any surgeries you have had. Any medical conditions you have, including any rectal pain or any new or increased blood in your stool. Whether you are or may be . Whether you are . What are the risks? Generally, this is a safe procedure. However, problems may occur, including: Difficulty passing stool (constipation). Stool that hardens and gets stuck in the colon or rectum (fecal impaction). A hole (perforation) in the colon. What happens before the procedure? Follow instructions from your health care provider about eating or drinking restrictions. You may be asked to restrict food or fluids before the procedure. Ask your health care provider about: ?Changing or stopping your regular medicines. This is especially important if you are taking diabetes medicines or blood thinners. ?Taking medicines such as aspirin and ibuprofen. These medicines can thin your blood. Do not take these medicines unless your health care provider tells you to take them. ?Taking cnsl-zte-fjxkujp medicines, vitamins, herbs, and supplements. Follow instructions from your health care provider about bowel preparation. This may include: ?Drinking a large amount of medicated liquid, starting the day before your procedure. The liquid will cause you to have multiple loose bowel movements until your stool is almost clear or light green.This cleans out your colon in preparation for the procedure. ?Using a suppository or an enema. Plan to have someone take you home from the hospital or clinic. What happens during the procedure? You may be given a medicine to help you relax (sedative). A small tube (rectal catheter) will be inserted into your rectum. A balloon on the catheter will be inflated so that it blocks the anal opening. This will help to keep the barium in the colon during the test. Barium will be put into the colon through the catheter. You may feel some bloating and pressure. Your health care provider will watch the flow of barium as it moves through the rectum, the colon, and into the last part of the small bowel. He or she will do this using a series of plain X-rays plus a type of X-ray that allows images to be viewed on a monitor in a movie-like sequence (fluoroscopy). You may need to roll onto your side, back, and stomach during the exam. This will allow the health care provider to view your entire lower GI tract. In some cases, air will be put into the colon through the catheter. This helps to get even better X-rays if necessary. The barium will be drained out of the colon. You will be asked to go to the bathroom to expel more barium. A final X-ray will be taken. The procedure may vary among health care providers and hospitals. What happens after the procedure? Do not drive for 24 hours if you were given a sedative during your procedure. Return to your normal activities and diet as told by your health care provider. Ask your health care provider, or the department that is doing the test: ?When will my results be ready? ?How will I get my results? ?What are my treatment options? ?What other tests do I need? ?What are my next steps? Summary A barium enema is a medical test in which X-rays are taken to check for problems in the colon or inthe lower part of the small bowel. It is sometimes called a lower gastrointestinal (GI) series. For this test, a white, chalky liquid called barium will be put into your colon through your anus. This test may be done to check for problems such as tumors, polyps, or inflammatory bowel disease. Your health care provider will watch the flow of barium as it moves through the rectum, the colon, and into the last part of the small bowel. Ask your health care provider, or the department that is doing the test, when your results will be ready and how you will get them. This information is not intended to replace advice given to you by your health care provider. Make sure you discuss any questions you have with your health care provider. Document Released: 10/28/2001 Document Revised: 03/06/2019 Document Reviewed: 03/06/2019 [employer] Patient Education 2020 [employer] 08/15/2023 12:07:59 Barium Enema Barium Enema A barium enema is a medical test in which X-rays are taken to check for problems in the colon or inthe lower part of the small bowel. The colon is also called the large intestine. This procedure is sometimes called a lower gastrointestinal (GI) series. For this test, a white, chalky liquid called barium will be put into your colon through your anus. A series of X-rays will be done while the barium passes through your colon. The barium shows up wellon X-rays, making it easier for your health care provider to see the inside of your colon. A barium enema may be done to check for various problems, such as: Growths in the colon or rectum (polyps). Abnormal growths of tissue and cells (tumors). Abnormal pouches (diverticula). Inflammation of the digestive tract (Crohn's disease). Other inflammatory bowel diseases (IBD). Your health care provider may recommend this procedure if you have symptoms such as: Pain in the abdomen. Blood in the stool (feces). Tell a health care provider about: Any allergies you have, especially allergies to substances that are used in certain imaging tests (contrast materials). All medicines you are taking, including vitamins, herbs, eye drops, creams, and oszm-dzs-qoanoso medicines. Any blood disorders you have. Any surgeries you have had. Any medical conditions you have, including any rectal pain or any new or increased blood in your stool. Whether you are or may be . Whether you are . What are the risks? Generally, this is a safe procedure. However, problems may occur, including: Difficulty passing stool (constipation). Stool that hardens and gets stuck in the colon or rectum (fecal impaction). A hole (perforation) in the colon. What happens before the procedure? Follow instructions from your health care provider about eating or drinking restrictions. You may be asked to restrict food or fluids before the procedure. Ask your health care provider about: ?Changing or stopping your regular medicines. This is especially important if you are taking diabetes medicines or blood thinners. ?Taking medicines such as aspirin and ibuprofen. These medicines can thin your blood. Do not take these medicines unless your health care provider tells you to take them. ?Taking frkt-gti-jwtxote medicines, vitamins, herbs, and supplements. Follow instructions from your health care provider about bowel preparation. This may include: ?Drinking a large amount of medicated liquid, starting the day before your procedure. The liquid will cause you to have multiple loose bowel movements until your stool is almost clear or light green.This cleans out your colon in preparation for the procedure. ?Using a suppository or an enema. Plan to have someone take you home from the hospital or clinic. What happens during the procedure? You may be given a medicine to help you relax (sedative). A small tube (rectal catheter) will be inserted into your rectum. A balloon on the catheter will be inflated so that it blocks the anal opening. This will help to keep the barium in the colon during the test. Barium will be put into the colon through the catheter. You may feel some bloating and pressure. Your health care provider will watch the flow of barium as it moves through the rectum, the colon, and into the last part of the small bowel. He or she will do this using a series of plain X-rays plus a type of X-ray that allows images to be viewed on a monitor in a movie-like sequence (fluoroscopy). You may need to roll onto your side, back, and stomach during the exam. This will allow the health care provider to view your entire lower GI tract. In some cases, air will be put into the colon through the catheter. This helps to get even better X-rays if necessary. The barium will be drained out of the colon. You will be asked to go to the bathroom to expel more barium. A final X-ray will be taken. The procedure may vary among health care providers and hospitals. What happens after the procedure? Do not drive for 24 hours if you were given a sedative during your procedure. Return to your normal activities and diet as told by your health care provider. Ask your health care provider, or the department that is doing the test: ?When will my results be ready? ?How will I get my results? ?What are my treatment options? ?What other tests do I need? ?What are my next steps? Summary A barium enema is a medical test in which X-rays are taken to check for problems in the colon or inthe lower part of the small bowel. It is sometimes called a lower gastrointestinal (GI) series. For this test, a white, chalky liquid called barium will be put into your colon through your anus. This test may be done to check for problems such as tumors, polyps, or inflammatory bowel disease. Your health care provider will watch the flow of barium as it moves through the rectum, the colon, and into the last part of the small bowel. Ask your health care provider, or the department that is doing the test, when your results will be ready and how you will get them. This information is not intended to replace advice given to you by your health care provider. Make sure you discuss any questions you have with your health care provider. Document Released: 10/28/2001 Document Revised: 03/06/2019 Document Reviewed: 03/06/2019 [employer] Patient Education 2020 [employer] 08/15/2023 12:02:48 Monitored Anesthesia Care, Care After Monitored Anesthesia Care, Care After These instructions provide you with information about caring for yourself after your procedure. Your health care provider may also give you more specific instructions. Your treatment has been plannedaccording to current medical practices, but problems sometimes occur. Call your health care provider if you have any problems or questions after your procedure. What can I expect after the procedure? After your procedure, you may: Feel sleepy for several hours. Feel clumsy and have poor balance for several hours. Feel forgetful about what happened after the procedure. Have poor judgment for several hours. Feel nauseous or vomit. Have a sore throat if you had a breathing tube during the procedure. Follow these instructions at home: For at least 24 hours after the procedure: Have a responsible adult stay with you. It is important to have someone help care for you until youare awake and alert. Rest as needed. Do not: ?Participate in activities in which you could fall or become injured. ?Drive. ?Use heavy machinery. ?Drink alcohol. ?Take sleeping pills or medicines that cause drowsiness. ?Make important decisions or sign legal documents. ?Take care of children on your own. Eating and drinking Follow the diet that is recommended by your health care provider. If you vomit, drink water, juice, or soup when you can drink without vomiting. Make sure you have little or no nausea before eating solid foods. General instructions Take okyu-toy-kuunfln and prescription medicines only as told by your health care provider. If you have sleep apnea, surgery and certain medicines can increase your risk for breathing problems. Follow instructions from your health care provider about wearing your sleep device: ?Anytime you are sleeping, including during daytime naps. ?While taking prescription pain medicines, sleeping medicines, or medicines that make you drowsy. If you smoke, do not smoke without supervision. Keep all follow-up visits as told by your health care provider. This is important. Contact a health care provider if: You keep feeling nauseous or you keep vomiting. You feel light-headed. You develop a rash. You have a fever. Get help right away if: You have trouble breathing. Summary For several hours after your procedure, you may feel sleepy and have poor judgment. Have a responsible adult stay with you for at least 24 hours or until you are awake and alert. This information is not intended to replace advice given to you by your health care provider. Make sure you discuss any questions you have with your health care provider. Document Released: 02/20/2017 Document Revised: 01/29/2019 Document Reviewed: 02/20/2017 [employer] Patient Education 2020 [employer] 08/15/2023 12:02:43 Colonoscopy, Adult, Care After Colonoscopy, Adult, Care After This sheet gives you information about how to care for yourself after your procedure. Your health care provider may also give you more specific instructions. If you have problems or questions, contact your health care provider. What can I expect after the procedure? After the procedure, it is common to have: A small amount of blood in your stool for 24 hours after the procedure. Some gas. Mild abdominal cramping or bloating. Follow these instructions at home: General instructions For the first 24 hours after the procedure: ?Do not drive or use machinery. ?Do not sign important documents. ?Do not drink alcohol. ?Do your regular daily activities at a slower pace than normal. ?Eat soft, npgw-km-jrrzwm foods. Take yvrx-tve-hdxfhoe or prescription medicines only as told by your health care provider. Relieving cramping and bloating Try walking around when you have cramps or feel bloated. Apply heat to your abdomen as told by your health care provider. Use a heat source that your healthcare provider recommends, such as a moist heat pack or a heating pad. ?Place a towel between your skin and the heat source. ?Leave the heat on for 20 30 minutes. ?Remove the heat if your skin turns bright red. This is especially important if you are unable to feel pain, heat, or cold. You may have a greater risk of getting burned. Eating and drinking Drink enough fluid to keep your urine pale yellow. Resume your normal diet as instructed by your health care provider. Avoid heavy or fried foods thatare hard to digest. Avoid drinking alcohol for as long as instructed by your health care provider. Contact a health care provider if: You have blood in your stool 2 3 days after the procedure. Get help right away if: You have more than a small spotting of blood in your stool. You pass large blood clots in your stool. Your abdomen is swollen. You have nausea or vomiting. You have a fever. You have increasing abdominal pain that is not relieved with medicine. Summary After the procedure, it is common to have a small amount of blood in your stool. You may also have mild abdominal cramping and bloating. For the first 24 hours after the procedure, do not drive or use machinery, sign important documents, or drink alcohol. Contact your health care provider if you have a lot of blood in your stool, nausea or vomiting, a fever, or increased abdominal pain. This information is not intended to replace advice given to you by your health care provider. Make sure you discuss any questions you have with your health care provider. Document Released: 06/14/2005 Document Revised: 08/23/2018 Document Reviewed: 01/11/2017 [employer] Patient Education 2020 [employer] Follow Up Care 08/09/2023 08:04:53 With:MARK JEREZ Address: [address] [place] [phone] Business (1) When: Unknown Comments:KEEP YOUR APPOINTMENT FOR YOUR MRI ON TUESDAY AT [address] JEREZ WOULD LIKE POLI TO HAVE A BARIUM EMEMA ON TUESDAY. THE ORDER IS IN THE FOLDER. PLEASE CALL DR. JEREZ'S OFFICE TO GET THE ORDERS FOR A PREP. PLEASE CALL THE NUMBER ON THE ORDER TO SCHEDULE THE BARIUM ENEMA [phone]. [facility] 10-02-2023 Evaluation + Plan noteExtracted from: Title:Clinical Document Author:MARK JEREZ Date:08/15/23 [facility] ADMISSION HISTORY AN D PHYSICIAL CHIEF COMPLAINT: HISTORY OF PRESENT ILLNESS: REVIEW OF SYSTEMS: ACTIVE PROBLEMS: (32) Anemia ([id number]) Arthritis (5857528) Benign colon polyp (0631330637) Breast cancer (269011549) Cervical spine fracture (980824659) Chest pain (45316101) Chronic anemia (233591992) Chronic back pain (220918431) COPD (64277361) Dependence on wheelchair (560097834) Diabetes mellitus type 2 (193227650) Diabetic neuropathy (421399256) Diarrhea (845819239) Dysphagia (23632550) Edema of both lower extremities (219907998) Encounter for surgical aftercare following surgery of nervous system (990213921) General weakness (21772445) GERD (gastroesophageal reflux disease) ([id number]) Glasses (1216336246) Goiter (7416788) Hard of hearing (366145955) Heart attack (35032424) History of radiation exposure (880692630) Hx of thrombocytopenia (169954489) Hyperlipidemia (96479240) Hypertension, essential (84395300) Incontinence of urine (6959857302) Osteoarthritis (5793031604) Oxygen dependent (9412109623) Pancreatic cyst (08752463) Rheumatic fever (29112436) Urinary incontinence (9727403357) MEDICATIONS: Active Inpt Meds: None Active PRN Meds: None One Time Meds: None Active IV Meds: Lactated Ringers Infusion 1,000 mL (LR 1,000 mL) Start: 08/15/23 10:41:00 EDT, Rate: 50 mL/hr, 08/15/23 10:41:00 EDT ALLERGIES: (2) Flexeril Zanaflex FAMILY HISTORY: SOCIAL HISTORY: PHYSICAL EXAM: VITALS: JlmtyaOhrwEIBffufCHFbA2ECP8ZytpYi(kg) 08/15 10:1936.7--210856FD99/02 95.0 08/15 95.0 24 Hr Tmax: 36.7 at 08/15 10:19 36 Hr Tmax: 36.7 at 08/15 10:19 Vital Signs are the last 5 in the past 48 hours. Weights display the last 5 within 7 days. Initial Wt: 08/15 95.0 kg 209 lb Current Wt: 08/15 95.0 kg 209 lb GENERAL: HEENT: CARDIOVASCULAR: RESPIRATORY: ABDOMEN: EXREMETIES: NEUROLOGICAL: PSYCHIATRIC: LABS: 36hr Labs 08/15 1041 Blood Glucose, [id number] Blood Glucose, [id number] DIAGNOSTICS: IMPRESSION: PLAN: History and Physical Update I have examined the patient; reviewed the H&P and there are no changes to the H&P unless noted below. Future Appointments Appointment Date:08/17/2023 10:30:00 AM Scheduled Provider: Location:[facility] Appointment Type:XR Barium Enema Complete Appointment Date:08/19/2023 02:30:00 PM Scheduled Provider: Location:[facility] Appointment Type:MRI Pancreas Future Scheduled Tests Radiology* XR Barium Enema Complete 08/17/23 * MRI Pancreas 08/19/23 [facility] Dipesh 10-02-2023 Summary of episode note Discharge Instructions Thank you for allowing [facility] to assist you with your healthcare needs. The following is importantdischarge information regarding your hospital visit. Your Care Team BARBER CARLISLE What to do next Scheduled Follow-Up Appointments Appointment Type When Where Contact InformationMRI Pancreas 08/19/2023 02:30 PM EDT [facility] [phone] Follow Up Appointments Follow Up with MARK JEREZ When Why: KEEP YOUR APPOINTMENT FOR YOUR MRI ON TUESDAY AT [address] JEREZ WOULD LIKE POLI TO HAVE A BARIUM EMEMA ON TUESDAY. THE ORDER IS IN THE FOLDER. PLEASE CALL DR. JEREZ'S OFFICE TO GET THE ORDERS FOR A PREP. PLEASE CALL THE NUMBER ON THE ORDER TO SCHEDULE THE BARIUM ENEMA [phone]. Where: [address] [place] [phone] Business (1) The Following Activity and Diet Have Been Ordered for You Full Liquid Diet until Barium Enema Allergies Flexeril Zanaflex Medications Please ask your primary doctor or pharmacist before taking any other medication not listed, including over the counter drugs, herbal medications, vitamins and or supplements as they may interact withyour home medications. What How Much When Instructions Last Dose Unchanged docusate (Colace 100 mg oral capsule) 1 cap by mouth Two (2) times a day as needed for Constipation Unchanged docusate-senna (docusate-senna 50 mg-8.6 mg oral tablet) 1 tab(s) by mouth Two (2) times a day Unchanged estradiol topical (estradiol 0.1 mg/ g vaginal cream) 1 Applicatorful Vaginal Twice a week Duration: 30 Days Unchanged gabapentin (gabapentin 300 mg oral capsule) 1 cap by mouth Three (3) times a day Unchanged heparin (heparin 5000 units/ mL injection) 1 Milliliter Subcutaneous Every 8 hours Unchanged insulin lispro (HumaLOG) (HumaLOG 100 units/ mL subcutaneous solution) Give 0-10 units/dose Subcutaneous Three (3) times a day before meals Unchanged losartan (losartan 100 mg oral tablet) 1 tab(s) by mouth Once a day Unchanged melatonin 5 Milligram by mouth Daily at bedtime as needed for Sleep Unchanged metoprolol (metoprolol succinate 50 mg oral TABLET extended release) 1 tab(s) by mouth Once a day Unchanged mirabegron (Myrbetriq 25 mg oral tablet, extended release) Unchanged nystatin topical (nystatin 100,000 units/ g topical powder) 1 application Topical As Directed Unchanged oxybutynin (oxybutynin 5 mg oral tablet) Unchanged oxyCODONE (oxyCODONE 5 mg oral tablet ( IMMEDIATE release )) 1 tab(s) by mouth Every 6 hours as needed for Pain, scale 4-10 Unchanged pantoprazole (pantoprazole 40 mg oral enteric coated tablet) 1 tab(s) by mouth Once a day before a meal Unchanged polyethylene glycol 3350 by mouth Once a day Unchanged polyethylene glycol 3350 by mouth Once a day as needed for Constipation Unchanged simvastatin (simvastatin 10 mg oral tablet) 1 tab(s) by mouth Daily at bedtime Please take this list to your next doctor s visit. Bring all medications you take, including over the counter medications, herbals and other supplements with you to your doctor s visit. Patients and families are reminded to discard old lists and to update any records with all medication providers or retail pharmacies. Education Materials Barium Enema A barium enema is a medical test in which X-rays are taken to check for problems in the colon or inthe lower part of the small bowel. The colon is also called the large intestine. This procedure is sometimes called a lower gastrointestinal (GI) series. For this test, a white, chalky liquid called barium will be put into your colon through your anus. A series of X-rays will be done while the barium passes through your colon. The barium shows up wellon X-rays, making it easier for your health care provider to see the inside of your colon. A barium enema may be done to check for various problems, such as: Growths in the colon or rectum (polyps). Abnormal growths of tissue and cells (tumors). Abnormal pouches (diverticula). Inflammation of the digestive tract (Crohn's disease). Other inflammatory bowel diseases (IBD). Your health care provider may recommend this procedure if you have symptoms such as: Pain in the abdomen. Blood in the stool (feces). Tell a health care provider about: Any allergies you have, especially allergies to substances that are used in certain imaging tests (contrast materials). All medicines you are taking, including vitamins, herbs, eye drops, creams, and ugri-xjv-grhkrja medicines. Any blood disorders you have. Any surgeries you have had. Any medical conditions you have, including any rectal pain or any new or increased blood in your stool. Whether you are or may be . Whether you are . What are the risks? Generally, this is a safe procedure. However, problems may occur, including: Difficulty passing stool (constipation). Stool that hardens and gets stuck in the colon or rectum (fecal impaction). A hole (perforation) in the colon. What happens before the procedure? Follow instructions from your health care provider about eating or drinking restrictions. You may be asked to restrict food or fluids before the procedure. Ask your health care provider about: ? Changing or stopping your regular medicines. This is especially important if you are taking diabetes medicines or blood thinners. ? Taking medicines such as aspirin and ibuprofen. These medicines can thin your blood. Do not take these medicines unless your health care provider tells you to take them. ? Taking nbzd-rfb-asajdsn medicines, vitamins, herbs, and supplements. Follow instructions from your health care provider about bowel preparation. This may include: ? Drinking a large amount of medicated liquid, starting the day before your procedure. The liquid will cause you to have multiple loose bowel movements until your stool is almost clear or light green. This cleans out your colon in preparation for the procedure. ? Using a suppository or an enema. Plan to have someone take you home from the hospital or clinic. What happens during the procedure? You may be given a medicine to help you relax (sedative). A small tube (rectal catheter) will be inserted into your rectum. A balloon on the catheter will be inflated so that it blocks the anal opening. This will help to keep the barium in the colon during the test. Barium will be put into the colon through the catheter. You may feel some bloating and pressure. Your health care provider will watch the flow of barium as it moves through the rectum, the colon, and into the last part of the small bowel. He or she will do this using a series of plain X-rays plus a type of X-ray that allows images to be viewed on a monitor in a movie-like sequence (fluoroscopy). You may need to roll onto your side, back, and stomach during the exam. This will allow the health care provider to view your entire lower GI tract. In some cases, air will be put into the colon through the catheter. This helps to get even better X-rays if necessary. The barium will be drained out of the colon. You will be asked to go to the bathroom to expel more barium. A final X-ray will be taken. The procedure may vary among health care providers and hospitals. What happens after the procedure? Do not drive for 24 hours if you were given a sedative during your procedure. Return to your normal activities and diet as told by your health care provider. Ask your health care provider, or the department that is doing the test: ? When will my results be ready? ? How will I get my results? ? What are my treatment options? ? What other tests do I need? ? What are my next steps? Summary A barium enema is a medical test in which X-rays are taken to check for problems in the colon or inthe lower part of the small bowel. It is sometimes called a lower gastrointestinal (GI) series. For this test, a white, chalky liquid called barium will be put into your colon through your anus. This test may be done to check for problems such as tumors, polyps, or inflammatory bowel disease. Your health care provider will watch the flow of barium as it moves through the rectum, the colon, and into the last part of the small bowel. Ask your health care provider, or the department that is doing the test, when your results will be ready and how you will get them. This information is not intended to replace advice given to you by your health care provider. Make sure you discuss any questions you have with your health care provider. Document Released: 10/28/2001 Document Revised: 03/06/2019 Document Reviewed: 03/06/2019 [employer] Patient Education 2020 [employer] Barium Enema A barium enema is a medical test in which X-rays are taken to check for problems in the colon or inthe lower part of the small bowel. The colon is also called the large intestine. This procedure is sometimes called a lower gastrointestinal (GI) series. For this test, a white, chalky liquid called barium will be put into your colon through your anus. A series of X-rays will be done while the barium passes through your colon. The barium shows up wellon X-rays, making it easier for your health care provider to see the inside of your colon. A barium enema may be done to check for various problems, such as: Growths in the colon or rectum (polyps). Abnormal growths of tissue and cells (tumors). Abnormal pouches (diverticula). Inflammation of the digestive tract (Crohn's disease). Other inflammatory bowel diseases (IBD). Your health care provider may recommend this procedure if you have symptoms such as: Pain in the abdomen. Blood in the stool (feces). Tell a health care provider about: Any allergies you have, especially allergies to substances that are used in certain imaging tests (contrast materials). All medicines you are taking, including vitamins, herbs, eye drops, creams, and gppy-aqq-wcgrvsw medicines. Any blood disorders you have. Any surgeries you have had. Any medical conditions you have, including any rectal pain or any new or increased blood in your stool. Whether you are or may be . Whether you are . What are the risks? Generally, this is a safe procedure. However, problems may occur, including: Difficulty passing stool (constipation). Stool that hardens and gets stuck in the colon or rectum (fecal impaction). A hole (perforation) in the colon. What happens before the procedure? Follow instructions from your health care provider about eating or drinking restrictions. You may be asked to restrict food or fluids before the procedure. Ask your health care provider about: ? Changing or stopping your regular medicines. This is especially important if you are taking diabetes medicines or blood thinners. ? Taking medicines such as aspirin and ibuprofen. These medicines can thin your blood. Do not take these medicines unless your health care provider tells you to take them. ? Taking cwuq-nmt-snmqqgu medicines, vitamins, herbs, and supplements. Follow instructions from your health care provider about bowel preparation. This may include: ? Drinking a large amount of medicated liquid, starting the day before your procedure. The liquid will cause you to have multiple loose bowel movements until your stool is almost clear or light green. This cleans out your colon in preparation for the procedure. ? Using a suppository or an enema. Plan to have someone take you home from the hospital or clinic. What happens during the procedure? You may be given a medicine to help you relax (sedative). A small tube (rectal catheter) will be inserted into your rectum. A balloon on the catheter will be inflated so that it blocks the anal opening. This will help to keep the barium in the colon during the test. Barium will be put into the colon through the catheter. You may feel some bloating and pressure. Your health care provider will watch the flow of barium as it moves through the rectum, the colon, and into the last part of the small bowel. He or she will do this using a series of plain X-rays plus a type of X-ray that allows images to be viewed on a monitor in a movie-like sequence (fluoroscopy). You may need to roll onto your side, back, and stomach during the exam. This will allow the health care provider to view your entire lower GI tract. In some cases, air will be put into the colon through the catheter. This helps to get even better X-rays if necessary. The barium will be drained out of the colon. You will be asked to go to the bathroom to expel more barium. A final X-ray will be taken. The procedure may vary among health care providers and hospitals. What happens after the procedure? Do not drive for 24 hours if you were given a sedative during your procedure. Return to your normal activities and diet as told by your health care provider. Ask your health care provider, or the department that is doing the test: ? When will my results be ready? ? How will I get my results? ? What are my treatment options? ? What other tests do I need? ? What are my next steps? Summary A barium enema is a medical test in which X-rays are taken to check for problems in the colon or inthe lower part of the small bowel. It is sometimes called a lower gastrointestinal (GI) series. For this test, a white, chalky liquid called barium will be put into your colon through your anus. This test may be done to check for problems such as tumors, polyps, or inflammatory bowel disease. Your health care provider will watch the flow of barium as it moves through the rectum, the colon, and into the last part of the small bowel. Ask your health care provider, or the department that is doing the test, when your results will be ready and how you will get them. This information is not intended to replace advice given to you by your health care provider. Make sure you discuss any questions you have with your health care provider. Document Released: 10/28/2001 Document Revised: 03/06/2019 Document Reviewed: 03/06/2019 [employer] Patient Education 2020 [employer] Monitored Anesthesia Care, Care After These instructions provide you with information about caring for yourself after your procedure. Your health care provider may also give you more specific instructions. Your treatment has been plannedaccording to current medical practices, but problems sometimes occur. Call your health care provider if you have any problems or questions after your procedure. What can I expect after the procedure? After your procedure, you may: Feel sleepy for several hours. Feel clumsy and have poor balance for several hours. Feel forgetful about what happened after the procedure. Have poor judgment for several hours. Feel nauseous or vomit. Have a sore throat if you had a breathing tube during the procedure. Follow these instructions at home: For at least 24 hours after the procedure: Have a responsible adult stay with you. It is important to have someone help care for you until youare awake and alert. Rest as needed. Do not: ? Participate in activities in which you could fall or become injured. ? Drive. ? Use heavy machinery. ? Drink alcohol. ? Take sleeping pills or medicines that cause drowsiness. ? Make important decisions or sign legal documents. ? Take care of children on your own. Eating and drinking Follow the diet that is recommended by your health care provider. If you vomit, drink water, juice, or soup when you can drink without vomiting. Make sure you have little or no nausea before eating solid foods. General instructions Take bufz-nvj-iijvccv and prescription medicines only as told by your health care provider. If you have sleep apnea, surgery and certain medicines can increase your risk for breathing problems. Follow instructions from your health care provider about wearing your sleep device: ? Anytime you are sleeping, including during daytime naps. ? While taking prescription pain medicines, sleeping medicines, or medicines that make you drowsy. If you smoke, do not smoke without supervision. Keep all follow-up visits as told by your health care provider. This is important. Contact a health care provider if: You keep feeling nauseous or you keep vomiting. You feel light-headed. You develop a rash. You have a fever. Get help right away if: You have trouble breathing. Summary For several hours after your procedure, you may feel sleepy and have poor judgment. Have a responsible adult stay with you for at least 24 hours or until you are awake and alert. This information is not intended to replace advice given to you by your health care provider. Make sure you discuss any questions you have with your health care provider. Document Released: 02/20/2017 Document Revised: 01/29/2019 Document Reviewed: 02/20/2017 [employer] Patient Education 2020 [employer] Colonoscopy, Adult, Care After This sheet gives you information about how to care for yourself after your procedure. Your health care provider may also give you more specific instructions. If you have problems or questions, contact your health care provider. What can I expect after the procedure? After the procedure, it is common to have: A small amount of blood in your stool for 24 hours after the procedure. Some gas. Mild abdominal cramping or bloating. Follow these instructions at home: General instructions For the first 24 hours after the procedure: ? Do not drive or use machinery. ? Do not sign important documents. ? Do not drink alcohol. ? Do your regular daily activities at a slower pace than normal. ? Eat soft, vexr-yt-hizewo foods. Take rtlw-pbu-exnrweh or prescription medicines only as told by your health care provider. Relieving cramping and bloating Try walking around when you have cramps or feel bloated. Apply heat to your abdomen as told by your health care provider. Use a heat source that your healthcare provider recommends, such as a moist heat pack or a heating pad. ? Place a towel between your skin and the heat source. ? Leave the heat on for 20 30 minutes. ? Remove the heat if your skin turns bright red. This is especially important if you are unable to feel pain, heat, or cold. You may have a greater risk of getting burned. Eating and drinking Drink enough fluid to keep your urine pale yellow. Resume your normal diet as instructed by your health care provider. Avoid heavy or fried foods thatare hard to digest. Avoid drinking alcohol for as long as instructed by your health care provider. Contact a health care provider if: You have blood in your stool 2 3 days after the procedure. Get help right away if: You have more than a small spotting of blood in your stool. You pass large blood clots in your stool. Your abdomen is swollen. You have nausea or vomiting. You have a fever. You have increasing abdominal pain that is not relieved with medicine. Summary After the procedure, it is common to have a small amount of blood in your stool. You may also have mild abdominal cramping and bloating. For the first 24 hours after the procedure, do not drive or use machinery, sign important documents, or drink alcohol. Contact your health care provider if you have a lot of blood in your stool, nausea or vomiting, a fever, or increased abdominal pain. This information is not intended to replace advice given to you by your health care provider. Make sure you discuss any questions you have with your health care provider. Document Released: 06/14/2005 Document Revised: 08/23/2018 Document Reviewed: 01/11/2017 [employer] Patient Education 2020 [employer] Additional Information VACCINATE! IT SAVES LIVES! Members of the community who have not yet received the COVID-19 vaccine and would like to receive it can visit one of [facility] vaccine clinics. There are many vaccine clinic locations within the [facility]. For locations and available times, please visit https://gettheshot.coronavirus.[place].gov/. It is important to note that some COVID mobile vaccine clinics are held outdoors and may be canceled in rainy or stormy conditions. To learn more about pediatric vaccinations (ages 5-11), we invite you to visit the [facility] webpage. https://www.[facility].org/pages/5035-Xglmc-Uzfztalkruf-Wpycvblozk-Cfbfj-Fag stions.htmlTo learn more about the COVID-19 vaccine, we invite you to visit the CDC website for a list of frequently asked questions.https://www.cdc.gov/coronavirus/2019-ncov/vaccines/faq.html [employer] Patient Portal Access Instructions: Stay connected with your healthcare team and access your personal medical information anytime with the [employer] Patient Portal. Please follow the directions below to create your [employer] account: 1.Access the email account you provided upon registration to the hospital/physician office.2.Look for an invitation email from [facility].3.Open the email and access the invitation link: AcceptInvitation to [facility].4.Fill in the required quijano to create your account. To access your account, visit [employer]. Click the blue button labeled "Access Patient Portal" and then log in with the username and password that you created in the steps above. You will be able to view your test results, lab results, a summary of your visits, upcoming appointments and more. There is also a convenient messaging option where you can send secure messages to your p malouvider. In addition, you will have the ability to download any documents or summaries to your computer and/or send the information securely to a physician. Remember that your healthcare information is confidential, so carefully consider who you will allowto register on the [facility] for access to your information. You can also access the [facility] Patient Portal on the [facility]cy. Simply click on "Patient Portal" and then log into your account. If you would like to receive a full copy of your medical records, please contact the [facility] Medical Records Department by calling [phone], Tuesday through Tuesday between 8 a.m. and 4:30 p.m. HOW TO SAFELY DISPOSE OF PRESCRIPTION MEDICATIONS Please use one of the following methods to safely dispose of your unused medications. 1.Use a drug disposal kit: the drug disposal pouch allows you to safely discard your old and unuseddrugs. Ask your nurse to give you one when you are discharged.2.Visit a local take-back location: Many local pharmacies and police departments have programs that collect old and unwanted prescriptiondrugs. Call your local pharmacy or go to http://[employer].Naiku/6Y3Mb7k to find one close to you.3.Make use of household items: Use cat litter or old coffee grounds to dispose medications if other options arenot available. Mix your drugs with these household products, seal them in an airtight container andthrow it into the garbage. Call [facility]: [phone] to be sure your drugs can be disposed of in this way. Some medicines may require a different approach.4.Never flush your medications down the toilet. IF YOU HAVE BEEN PRESCRIBED AN OPIOID FOR PAIN If you have been prescribed an opioid (such as hydrocodone, oxycodone or morphine), it is critical to understand the possible side effects and risks of opioid pain medications. Even when taken as directed, opioids can have several side effects including: Tolerance, meaning you might need to take more of a medication for the same pain relief. Nausea, vomiting and/or constipation. Sleepiness, dizziness, dry mouth, confusion, depression or itching. Physical dependence, meaning you have withdrawal symptoms when a medication is stopped, can develop within a few days. KNOW YOUR RESPONSIBILITIES It is important to know exactly how much and how often to take the opioid pain medications you are prescribed. Never take opioids in higher amounts or more often than prescribed. Do not combine opioids with alcohol or other drugs that cause drowsiness, such as benzodiazepines, also known as benzos, including diazepam and alprazolam, muscle relaxants or sleep aids. Never sell or share prescription opioids. This is illegal. Store opioids in a secure place and out of reach of others (including children, family, friends and visitors). The last page of this document has been signed and retained as a CHART COPY. Signatures Patient Education Materials Barium Enema Barium Enema Monitored Anesthesia Care, Care After Colonoscopy, Adult, Care After Medication Leaflets My discharge plan and instructions have been reviewed and explained to me and I,POLI RAMIREZ understand my current condition and have read and understand these discharge instructions. I have received a written copy of the plan/instructions. If I have questions, I am aware that I should contact my d octor. Patient/Cake Wrapper Signature: Date/Time: Relationship to Patient: Witness Name/Signature: Date/Time: [facility]10-02-2023 Nurse Progress note Attempted colonoscopy. Dr. Jerez ordered a Barium Enema. Trains Dispatcher Supervisor X-Rays taken. Radiologist stated tomuch air for a Barium Enema today. Dr. Jerez notified. Orders received. Digitally Signed by Amy Watters RN on 08/15/2023 11:54 AM [facility]10-02-2023 Note ORIGINAL HISTORY: Failed colonoscopy, stricture COMPARISON: No. FINDINGS: There is formed stool and gas in the large bowel, most prominently in the right colon. There is a nonobstructive bowel gas pattern. Free air is not well evaluated. No abnormal masses or fluid collections are seen. IMPRESSION: Stool and gas in the colon; no obstruction. Interpreted by: Roberta Rosario MD Preliminary Report By: Roberta Rosario MD Electronically signed By Roberta Rosario MD Dictated Date: 08/15/2023 12:07:16 PM Prelim Date: 08/15/2023 12:08:09 PM Sign Date: 08/15/2023 12:08:09 PM Ordering Provider: [facility]10[facility]02-2023 Anesthesiology Consult note Patient: POLI RAMIREZ Age: 72 years Sex: Female : 1950 Associated Diagnoses: None Author: DELFIN RAM MACHINE MAINTENANCE REPAIRER-PERIOPERATIVE NURSE Assessment Postanesthesia assessment Vitals: Vital signs from flowsheet : Vital Signs 08/15/2023 11:15 EDT Heart Rate Monitored 93 bpm bpm Respiratory Rate - Anes 25 br/min br/min 08/15/2023 11:11 EDT Systolic Blood Pressure Non-Invasive 176 mmHg mmHg Diastolic Blood Pressure Non-Invasive 141 mmHg mmHg 08/15/2023 11:10 EDT Heart Rate Monitored 88 bpm bpm Respiratory Rate - Anes 26 br/min br/min 08/15/2023 11:05 EDT Heart Rate Monitored 89 bpm bpm Respiratory Rate - Anes 9 br/min br/min Systolic Blood Pressure Non-Invasive 124 mmHg mmHg Diastolic Blood Pressure Non-Invasive 100 mmHg mmHg 08/15/2023 11:00 EDT Heart Rate Monitored 96 bpm bpm Respiratory Rate - Anes 24 br/min br/min 08/15/2023 10:19 EDT Temperature Temporal Artery 36.7 DegC Apical Heart Rate 87 bpm Respiratory Rate 21 br/min HI Systolic Blood Pressure Non-Invasive 155 mmHg HI Diastolic Blood Pressure Non-Invasive 90 mmHg HI , Measurements from flowsheet . Mental status: alert & oriented x 4. Respiratory function: respirations are non-labored. Respiratory support: none. CV function: Normal rate. Cardiovascular support: none. Pain. Nausea status: see nursing documentation of medications. Postoperative hydration status: within normal limits. Digitally Signed by DELFIN RAM on 08/15/2023 11:22 AM [facility]10-02-2023 Anesthesiology Consult note Patient: POLI RAMIREZ Age: 72 years Sex: Female : 1950 Associated Diagnoses: None Author: DELFIN RAM Preoperative Information Time of last solid food intake: 08/15/2023 00:00:00 Time of last clear liquid intake: 08/15/2023 09:00:00 Anesthesia history Patient's history: negative. Family's history: negative. Health Status Allergies: Allergic Reactions (Selected) Severity Not Documented Flexeril- No reactions were documented. Zanaflex- No reactions were documented., Allergies (2) ActiveReaction FlexerilNone Documented ZanaflexNone Documented Current medications: (Selected) Inpatient Medications Ordered LR 1,000 mL: 50 mL/hr, Intravenous Prescriptions Prescribed estradiol 0.1 mg/g vaginal cream: 1 appl, Vaginal, 2X/week, for 30 day(s), 42.5 gram(s), 11 Refill(s) losartan 100 mg oral tablet: 100 mg, 1 tab(s), Oral, qDay, 90 tab(s), 3 Refill(s) metoprolol succinate 50 mg oral TABLET extended release: 50 mg, 1 tab(s), Oral, qDay, 90 tab(s), 3 Refill(s) simvastatin 10 mg oral tablet: 10 mg, 1 tab(s), Oral, qHS, 90 tab(s), 0 Refill(s) Documented Medications Documented Colace 100 mg oral capsule: 100 mg, 1 cap(s), Oral, BID, PRN: Constipation, 0 Refill(s) HumaLOG 100 units/mL subcutaneous solution: Give 0-10 units/dose, Subcutaneous, TIDAC, 0 Refill(s) Myrbetriq 25 mg oral tablet, extended release: 0 Refill(s) docusate-senna 50 mg-8.6 mg oral tablet: 1 tab(s), Oral, BID, 0 Refill(s) gabapentin 300 mg oral capsule: 300 mg, 1 cap(s), Oral, TID, 0 Refill(s) heparin 5000 units/mL injection: 5,000 unit(s), 1 mL, Subcutaneous, q8h, 0 Refill(s) melatonin: 5 mg, 1 tab(s), Oral, qHS, PRN: Sleep, 0 Refill(s) nystatin 100,000 units/g topical powder: 1 marcy, Topical, AsDirected, 0 Refill(s) oxyCODONE 5 mg oral tablet ( IMMEDIATE release ): 5 mg, 1 tab(s), Oral, q6hr, PRN: Pain, scale 4-10, 0 Refill(s) oxybutynin 5 mg oral tablet: 0 Refill(s) pantoprazole 40 mg oral enteric coated tablet: 40 mg, 1 tab(s), Oral, qDayAC, 0 Refill(s) polyethylene glycol 3350: Oral, qDay, 0 Refill(s) polyethylene glycol 3350: Oral, qDay, PRN: Constipation, 0 Refill(s), Medications (1) Active Scheduled: (0) Continuous: (1) Lactated Ringers 1,000 mL 1,000 mL, Intravenous, 50 mL/hr PRN: (0) Problem list: Medical Chronic anemia / SNOMED CT 813450433 / Confirmed Chronic back pain / SNOMED CT 560925005 / Confirmed COPD / SNOMED CT 03566190 / Confirmed Hypertension, essential / SNOMED CT 44945254 / Confirmed Cervical spine fracture / SNOMED CT 180400952 / Confirmed GERD (gastroesophageal reflux disease) / SNOMED CT [id number] / Confirmed Goiter / SNOMED CT 2272868 / Confirmed Hyperlipidemia / SNOMED CT 27031855 / Confirmed Encounter for surgical aftercare following surgery of nervous system / SNOMED CT 769887335 / Confirmed Incontinence of urine / SNOMED CT 0112981039 / Confirmed, Active Problems (32) Anemia Arthritis Benign colon polyp Breast cancer Cervical spine fracture Chest pain Chronic anemia Chronic back pain COPD Dependence on wheelchair Diabetes mellitus type 2 Diabetic neuropathy Diarrhea Dysphagia Edema of both lower extremities Encounter for surgical aftercare following surgery of nervous system General weakness GERD (gastroesophageal reflux disease) Glasses Goiter Hard of hearing Heart attack History of radiation exposure Hx of thrombocytopenia Hyperlipidemia Hypertension, essential Incontinence of urine Osteoarthritis Oxygen dependent Pancreatic cyst Rheumatic fever Urinary incontinence Histories Past Medical History: Active COPD (00953860) Chronic back pain (965388066) Resolved H/O hypercholesterolemia (9183679394): Resolved. Hypernatremia (3339981390): Resolved. Family History: Heart disease Father Brother Arthritis Daughter Stroke Mother Cancer Sister HTN - Hypertension Mother GERD (gastroesophageal reflux disease) Daughter Diverticulitis Daughter Procedure history: Cervical discectomy (712975616) on 07/13/2022 at 71 Years. Comments: 08/09/2022 11:44 JAIMET Viji Auguste CMA ACDF None ([id number]). Appendectomy (644079678). Comments: 08/11/2017 12:13 SHAMA BOLTON left water taken off Tubal ligation (427127283). Cholecystectomy (28415432). Arthroscopic knee operation (3123955027). Comments: 12/24/2019 13:16 SHAMA Gabriel right Lumpectomy of breast (1794766101). Comments: 12/24/2019 13:16 SHAMA Gabriel left Phacoemulsification of cataract with intraocular lens implantation (1240922217). Comments: 12/24/2019 13:16 SHAMA Gabriel both eyes Colonoscopy (866799346). Esophagogastroduodenoscopy (882467989). Cardiac catheter (6928858947). Comments: 12/24/2019 13:17 SHAMA Gabriel years ago Social History Social & Psychosocial Habits Alcohol 08/15/2023 Use: Never Substance Abuse 08/15/2023 Use: Never Tobacco 08/15/2023 Tobacco Use: Former smoker, quit more Exposure to Tobacco Smoke Lives with someone who sm Started at age: 17 Years Stopped at age: 49 Years Home/Environment 08/15/2023 Living situation: Home/Independent Lives In 1st floor bathroom, 1st floor bedroom, Multilevel home Current Home Treatments Blood Glucose monitoring, Oxygen therapy Marital Status of Patient if Patient Independent Adult: Nutrition/Health 08/15/2023 Caffeine intake amount: 2-3 servings of coffee daily 08/15/2023 Type of diet: Diabetic Appetite Good Eating Difficulties Swallowing . Physical Examination Vital Signs 08/15/2023 11:15 EDT Heart Rate Monitored 93 bpm bpm Respiratory Rate - Anes 25 br/min br/min 08/15/2023 11:11 EDT Systolic Blood Pressure Non-Invasive 176 mmHg mmHg Diastolic Blood Pressure Non-Invasive 141 mmHg mmHg 08/15/2023 11:10 EDT Heart Rate Monitored 88 bpm bpm Respiratory Rate - Anes 26 br/min br/min 08/15/2023 11:05 EDT Heart Rate Monitored 89 bpm bpm Respiratory Rate - Anes 9 br/min br/min Systolic Blood Pressure Non-Invasive 124 mmHg mmHg Diastolic Blood Pressure Non-Invasive 100 mmHg mmHg 08/15/2023 11:00 EDT Heart Rate Monitored 96 bpm bpm Respiratory Rate - Anes 24 br/min br/min 08/15/2023 10:19 EDT Temperature Temporal Artery 36.7 DegC Apical Heart Rate 87 bpm Respiratory Rate 21 br/min HI Systolic Blood Pressure Non-Invasive 155 mmHg HI Diastolic Blood Pressure Non-Invasive 90 mmHg HI Vital Signs(last 24 hrs) Last Charted Heart Rate Docferdvq73 bpm (AUG 15 11:15) Resp Rate H 21br/min (AUG 15 10:19) GXX786 mmHg (AUG 15 11:11) DFH824 mmHg (AUG 15 11:11) BMI34.89 (AUG 15 10:29) Measurements from flowsheet : Measurements 08/15/2023 10:29 EDT Height 165 cm Admission Weight 95 kg [place] Body Weight 56.91 kg BSA Admission 2.02 Body Mass Index 34.89 kg/m2 08/15/2023 10:19 EDT Height 165 cm Admission Weight 95 kg [place] Body Weight 56.91 kg Admission Body Mass Index 34.89 m2 Pain assessment: Pain Assessment 08/15/2023 10:19 EDT Primary Pain Location Abdomen Abdominal Pain Location LLQ Primary Pain Intensity 2 Pain Scale Type 0-10 Pain scale . General: Alert and oriented. Airway: Normal temporomandibular joint mobility. Mallampati classification: III (soft palate, base of uvula visible). Dentition Evaluation: Denies loose/chipped teeth. Respiratory: Respirations are non-labored. Cardiovascular: Normal rate. Neurologic: Alert, Oriented. Review / Management Results review: No qualifying data available , Lab results 08/15/2023 11:18 EDT Anesthesiology Consultation Postanesthesia Evaluation* 08/15/2023 11:17 EDT SN - CTm - Anesthesia Stop Time Anesthesia Stop Anesthesia Final Record OP Colonoscopy 08/15/2023 11:17 EDT SN - Proc - Actual Procedure FLEXIBLE SIGMOIDOSCOPY (Modified) 08/15/2023 11:17 EDT Lactated Ringers Injection 200 mL mL 08/15/2023 11:16 EDT SN - Cul - Culture Type No Specimen per Surgeon 08/15/2023 11:15 EDT Heart Rate Monitored 93 bpm bpm Respiratory Rate - Anes 25 br/min br/min Oxygen Saturation 96.3 % % 08/15/2023 11:14 EDT SN - GCD - ASA Class 4 (Modified) 08/15/2023 11:13 EDT propofol 20 mg mg 08/15/2023 11:12 EDT SN - AZ - Medication glucagon recombinant 1 mg SN - AZ - Route of Administration Intravenous SN - AZ - By (Single) SN - AZ - By (Single) SN - AZ - Time Administered 08/15/2023 11:11 08/15/2023 11:11 EDT Systolic Blood Pressure Non-Invasive 176 mmHg mmHg Diastolic Blood Pressure Non-Invasive 141 mmHg mmHg 08/15/2023 11:10 EDT Heart Rate Monitored 88 bpm bpm Respiratory Rate - Anes 26 br/min br/min Oxygen Saturation 98.2 % % 08/15/2023 11:08 EDT propofol 20 mg mg 08/15/2023 11:07 EDT SN - Proc - Anesthesia Type MAC SN - Proc - EBL 0 mL 08/15/2023 11:06 EDT SN - PP - Body Position Lateral Right Side-up Standard Intra-op 08/15/2023 11:05 EDT Heart Rate Monitored 89 bpm bpm Respiratory Rate - Anes 9 br/min br/min Systolic Blood Pressure Non-Invasive 124 mmHg mmHg Diastolic Blood Pressure Non-Invasive 100 mmHg mmHg Oxygen Saturation 98.2 % % 08/15/2023 11:04 EDT SN - GCD - Post-operative Diagnosis ABDOMINAL PAIN; ABNORMAL CT SN - GCD - Case Level OPD Level 3 08/15/2023 11:03 EDT lidocaine 20 mg mg propofol 50 mg mg 08/15/2023 11:01 EDT [place] History and Physical 08/15/2023 11:00 EDT SN - CAt - Case Attendee SN - CAt - Case Attendee SN - CAt - Case Attendee SN - CAt - Case Attendee SN - CAt - Case Attendee SN - CAt - Case Attendee SN - CAt - Case Attendee SN - CAt - Case Attendee SN - CAt - Role Performed Primary Surgeon SN - CAt - Role Performed Primer Charger 1 SN - CAt - Role Performed Production Artist SN - CAt - Role Performed PERIOPERATIVE NURSE 08/15/2023 11:00 EDT Heart Rate Monitored 96 bpm bpm Respiratory Rate - Anes 24 br/min br/min Oxygen Saturation 93.5 % % 08/15/2023 10:59 EDT SN - CTm - Anesthesia Start Time Anesthesia Start 08/15/2023 10:59 EDT Lactated Ringers Injection Begin Bag 1,000 mL mL 08/15/2023 10:42 EDT Lactated Ringers Injection Begin Bag 1,000 mL mL 08/15/2023 10:41 EDT Blood Glucose, Capillary 147 mg/dL HI 08/15/2023 10:39 EDT Continuous IV Infusions LR Wrist Right 08/15/2023 22 gauge Peripheral IV Activity: Insert new site Peripheral IV Dressing Condition: Clean, Dry, Intact Peripheral IV Dressing Activity: Applied, Transparent dressing Peripheral IV Line Status/Patency: Continuous infusion Peripheral IV Line Care: Secured with tape Peripheral IV Site Condition: No complications Peripheral IV Site Care: Direct pressure applied Peripheral IV Equipment: Extension set Peripheral IV Number of Attempts: 2 08/15/2023 10:29 EDT Designated Person #1 We May Share AALIYAH Ramirez no phone Designated Person #1 Relationship Spouse Designated Person #2 We May Share AALIYAH Oakley [phone] Designated Person #2 Relationship Daughter Height 165 cm Admission Weight 95 kg [place] Body Weight 56.91 kg BSA Admission 2.02 Body Mass Index 34.89 kg/m2 Status N/A Sensory Deficits None Infectious Disease Symptoms Patient states no symptoms Infectious Disease Recent Exposure No Alcohol and Drug Use No Employee of Institutional Living No Health Care Employee No History of Exposure to TB No History of Positive Chest X-Ray for TB No History of Positive TB Skin Test No Homeless No Known Immunosuppression No Recent Immigrant No Resident of Institutional Living No Bloody Sputum No Fatigue No Fever No Loss of Appetite No Night Sweats No Persistent Cough > 3 Weeks No Weight Loss No Barriers to Learning None evident Teaching Method Explanation, Printed materials Preferred Spoken Language Palauan Preferred Written Language Palauan Information Given by Patient Patient's Current Physicians Patient's Current Physicians Discharge To, Anticipated Home with family care Prev Test Positive/Diagnosis w/COVID-19 No Current Quarantine/Isolated any Illness No Any Contact with Sick Animals/Birds No Traveled Anywhere in Last 30 Days No N/A Personal Devices, Patient Valuables None Admission Note-Nursing Procedure/Therapy Intake 08/15/2023 10:19 EDT Height 165 cm Admission Weight 95 kg [place] Body Weight 56.91 kg Admission Body Mass Index 34.89 m2 Temperature Temporal Artery 36.7 DegC Apical Heart Rate 87 bpm Respiratory Rate 21 br/min HI Systolic Blood Pressure Non-Invasive 155 mmHg HI Diastolic Blood Pressure Non-Invasive 90 mmHg HI Primary Pain Location Abdomen Abdominal Pain Location LLQ Primary Pain Intensity 2 Pain Scale Type 0-10 Pain scale Heart Rhythm Irregular Respirations Unlabored All Lobes Breath Sounds Clear, Diminished Oxygen Therapy Room air Oxygen Saturation 97 % Abdomen Description Distended Bowel Sounds All Quadrants Present Skin Temperature Warm Skin Description Oppelo, Dry Skin Integrity Intact Mucous Membrane Color Oppelo Characteristics of Speech Clear Level of Consciousness Alert Strength All Extremities Weak Affect/Behavior Appropriate, Calm, Cooperative Orientation Oriented x 4 Patient Identified Identification band, Verbal Christina Motor (2) Moves 4 extremities voluntarily or on command Christina Respirations (2) Spontaneous respiration without support, RR > 10 Christina Blood Pressure (2) BP 20% above or below preanesthetic level Christina Pulse (2) Pulse 20% above or below preanesthetic level Christina Oxygen Saturation (2) 94% or more Christina Level of Consciousness (2) Fully awake Christina III Score 12 Assistive Device Wheelchair Standard Safety ID band on, Allergy Band on, Call device within reach, Bed in low position, Wheels locked 08/15/2023 10:10 EDT Urinary Elimination Voiding, no difficulties Allergies Yes Anesthesia Extension Set Applied Yes Resident Care Aid On Yes Colon Prep Results Excellent Consent Form Signed Yes Patient Dressed In Hospital gown Pre-op Preparation Undergarments removed History & Physical Update On Chart Yes History & Physical On Chart Yes Bowel Prep Completed Yes Obstructive Sleep Apnea Assess Completed No Belongings At Bedside Bra, Hair piece/wig, Pants, Shoes, Socks, T-shirt, Undergarments Personal Home Medications Received No home medications were brought in Belongings to Security/Secured in Dept None NPO Status Maintained Allergy Band on and Verified Yes Patient ID Band on and Verified Yes Implants Verified Yes Pacemaker/AICD Verified Yes Site Verified by Patient/Family Yes Anesthesia Consent Signed Yes Last Fluid Intake 08/15/2023 9:00 Last Food Intake 08/14/2023 17:00 Last Void 08/15/2023 9:00 . Assessment and Plan [place] [employer] (ASA) physical status classification: Class IV. Anesthetic Preoperative Plan Anesthetic technique: MAC. Informed consent: signed by patient. Digitally Signed by DELFIN RAM on 08/15/2023 11:21 AM [facility]10-02-2023 Anesthesiology Consult note Patient: POLI RAMIREZ Age: 72 years Sex: Female : 1950 Associated Diagnoses: None Author: DELFIN RAM Assessment Postanesthesia assessment Vitals: Vital signs from flowsheet : Vital Signs 08/15/2023 11:15 EDT Heart Rate Monitored 93 bpm bpm Respiratory Rate - Anes 25 br/min br/min 08/15/2023 11:11 EDT Systolic Blood Pressure Non-Invasive 176 mmHg mmHg Diastolic Blood Pressure Non-Invasive 141 mmHg mmHg 08/15/2023 11:10 EDT Heart Rate Monitored 88 bpm bpm Respiratory Rate - Anes 26 br/min br/min 08/15/2023 11:05 EDT Heart Rate Monitored 89 bpm bpm Respiratory Rate - Anes 9 br/min br/min Systolic Blood Pressure Non-Invasive 124 mmHg mmHg Diastolic Blood Pressure Non-Invasive 100 mmHg mmHg 08/15/2023 11:00 EDT Heart Rate Monitored 96 bpm bpm Respiratory Rate - Anes 24 br/min br/min 08/15/2023 10:19 EDT Temperature Temporal Artery 36.7 DegC Apical Heart Rate 87 bpm Respiratory Rate 21 br/min HI Systolic Blood Pressure Non-Invasive 155 mmHg HI Diastolic Blood Pressure Non-Invasive 90 mmHg HI , Measurements from flowsheet . Mental status: alert & oriented x 4. Respiratory function: respirations are non-labored. Respiratory support: none. CV function: Normal rate. Cardiovascular support: none. Pain. Nausea status: see nursing documentation of medications. Postoperative hydration status: within normal limits. Digitally Signed by DELFIN RAM on 08/15/2023 11:19 AM [facility] [id number] Note CADES ADMISSION HISTORY AND PHYSICIAL CHIEF COMPLAINT: HISTORY OF PRESENT ILLNESS: REVIEW OF SYSTEMS: ACTIVE PROBLEMS: (32) Anemia (388488191) Arthritis (5063184) Benign colon polyp (7186743006) Breast cancer (115578782) Cervical spine fracture (863743566) Chest pain (75439654) Chronic anemia (131132475) Chronic back pain (779036308) COPD (50960361) Dependence on wheelchair (439909280) Diabetes mellitus type 2 (447965656) Diabetic neuropathy (949215214) Diarrhea (242550161) Dysphagia (38642125) Edema of both lower extremities (849865912) Encounter for surgical aftercare following surgery of nervous system (172663871) General weakness (24694134) GERD (gastroesophageal reflux disease) ([id number]) Glasses (0097584673) Goiter (5653135) Hard of hearing (097805109) Heart attack (43325600) History of radiation exposure (658157563) Hx of thrombocytopenia (997576161) Hyperlipidemia (47022065) Hypertension, essential (36752941) Incontinence of urine (0065177783) Osteoarthritis (1822492541) Oxygen dependent (1494347972) Pancreatic cyst (22438159) Rheumatic fever (11645347) Urinary incontinence (1733115147) MEDICATIONS: Active Inpt Meds: None Active PRN Meds: None One Time Meds: None Active IV Meds: Lactated Ringers Infusion 1,000 mL (LR 1,000 mL) Start: 08/15/23 10:41:00 EDT, Rate: 50 mL/hr, 08/15/23 10:41:00 EDT ALLERGIES: (2) Flexeril Zanaflex FAMILY HISTORY: SOCIAL HISTORY: PHYSICAL EXAM: VITALS: [id number](kg) 08/15 10:1936.7--797171IX42/02 95.0 08/15 95.0 24 Hr Tmax: 36.7 at 08/15 10:19 36 Hr Tmax: 36.7 at 08/15 10:19 Vital Signs are the last 5 in the past 48 hours. Weights display the last 5 within 7 days. Initial Wt: 08/15 95.0 kg 209 lb Current Wt: 08/15 95.0 kg 209 lb GENERAL: HEENT: CARDIOVASCULAR: RESPIRATORY: ABDOMEN: EXREMETIES: NEUROLOGICAL: PSYCHIATRIC: LABS: 36hr Labs 08/15 1041 Blood Glucose, [id number] Blood Glucose, [id number] DIAGNOSTICS: IMPRESSION: PLAN: History and Physical Update I have examined the patient; reviewed the H&P and there are no changes to the H&P unless noted below. Digitally Signed by MARK JEREZ MD on 08/15/2023 11:05 AM [facility]08-31-2023 Discharge summary Author Shahnaz [facility] July 14, 2023 7:47pm Note Date/Time July 14, 2023 3: 43pm [facility] Medical Records Department [address] [place] [id number] Emergency Department Summary 07/14/23 MR#: [id number] Acct: [id number] Name: POLI RAMIREZ Rep #:[id number] : 1950 72 From: Shahnaz Georges PCP: Gilma STUBBS, Jonathan Status:REG ER Location: ED HPI HPI - GI History of Present Illness Chief Complaint: Abd Pain Informant: patient Narrative Narrative: Patient is a 72-year-old female with history of CHF, anemia, thrombocytopenia, COPD (on 2 L of oxygen at baseline) and colitis versus diverticulitis presentingwith worsening left lower quadrant abdominal pain. Patient states she has had this pain for a while but has been worsening significantly over the last week and is now "intolerable". She states the pain is been constant today. She states that sharp and stabbing. Is mostly in her left flank/left lower quadrantarea but sometimes it radiates to her back and sometimes down into her left thigh. Eating seems to make it worse. She also has had associated dysuria and frequency of urination. She had some mild nausea but no vomiting. Denies any black or blood in her stool. Has had some mild diarrhea. No report of any fever or chills. States he has appointment to see a GI doctor next month but cannot wait that long. States that she has "a little blue pill" that helps somewith her pain, review of her medical records from her nursing facility shows that this is likely Bentyl. Medical records also show that patient is DNR [facility]. She is a resident of [facility]. She notes that she is mostly wheelchair-bound but can walk short distances. Had a neck fracture earlier thisyear. 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 Chronic respiratory failure with hypoxia Colitis COPD (chronic obstructive pulmonary disease) Dysphagia Essential hypertension GERD (gastroesophageal reflux disease) History of falling Insomnia, unspecified Iron deficiency anemia Lung nodules Muscle weakness (generalized) Myocardial infarction Obstructive sleep apnea On mechanically assisted ventilation Other displaced fracture of seventh cervical vertebra, subsequent encounter for fracture with routine healing Other displaced fracture of sixth cervical vertebra, subsequent encounter for fracture with routine healing Other lack of coordination Other pancytopenia Personal history of malignant neoplasm of breast Personal history of nicotine dependence Pneumonia Primary osteoarthritis, left shoulder Primary osteoarthritis, right shoulder Pure hypercholesterolemia Respiratory failure with hypoxia Thrombocytopenia Type 2 diabetes mellitus with diabetic neuropathy Unspecified abnormalities of gait and mobility Urinary incontinence Venous insufficiency Venous insufficiency (chronic) (peripheral) Vitamin B12 deficiency Home Medications nystatin 100,000 unit/gram topical cream 1 applic topical BID Check with primarydoctor 11/24/21 [History Last Taken Unknown] simvastatin 10 mg tablet 10 mg PO QHS CHOLESTEROL 11/24/21 [History Last Taken Unknown] bisacodyl 10 mg rectal suppository 10 mg PA DAILY PRN 11/11/22 [History Last Taken Unknown] cranberry 400 mg capsule 400 mg PO DAILY SUPPLEMENT 11/11/22 [History Last Taken Unknown] folic acid 1 mg tablet 1 mg PO DAILY SUPPLEMENT 11/11/22 [History Last Taken Unknown] glucagon 1 mg injection kit mg IM 11/11/22 [History Last Taken Unknown] docusate sodium 100 mg capsule 100 mg PO DAILY PRN constipation #60 caps 02/25/23 [Rx Last Taken Unknown] acetaminophen 325 mg tablet 325 mg PO DAILY PAIN 04/19/23 [History Last Taken Unknown] carvedilol 3.125 mg tablet 3.125 mg PO BID HEART 04/19/23 [History Last Taken Unknown] furosemide 40 mg tablet 20 mg PO DAILY FLUID 04/19/23 [History Last Taken Unknown] gabapentin 100 mg capsule 100 mg PO TID NERVE PAIN 04/19/23 [History Last Taken Unknown] glimepiride 4 mg tablet 1 mg PO DAILY DIABETES 04/19/23 [History Last Taken Unknown] lisinopril 2.5 mg tablet 2.5 mg PO DAILY BLOOD PRESSURE 04/19/23 [History Last Taken Unknown] potassium chloride 20 mEq tablet,extended release(part/cryst) 20 meq PO DAILY SUPPLEMENT 04/19/23 [History Last Taken Unknown] ferrous sulfate 325 mg (65 mg iron) tablet 325 mg PO BID 05/04/23 [History Last Taken Unknown] ondansetron HCl 4 mg tablet 4 mg PO Q8H PRN 05/04/23 [History Last Taken Unknown] pantoprazole 40 mg tablet,delayed release 40 mg PO DAILY 05/04/23 [History Last Taken Unknown] sennosides 8.6 mg-docusate sodium 50 mg capsule (Senna Plus) 1 tab-cap PO BID PRN 05/04/23 [History Last Taken Unknown] simethicone 80 mg chewable tablet (Gas Relief (simethicone)) 80 mg PO BID-QID PRN 05/04/23 [History Last Taken Unknown] ciprofloxacin HCl 500 mg tablet (Cipro) 500 mg PO Q12H #28 tabs 07/14/23 [Rx Last Taken Unknown] hydrocodone-acetaminophen 5-325mg 5mg-325mg 1 tab PO Q6H PRN PRN Pain 3 days #12TABLETS 07/14/23 [Rx Last Taken Unknown] mesalamine 1.2 gram tablet,delayed release 2.4 g (2 x 1.2 gram) PO DAILY 4 weeks#56 tabs 07/14/23 [Rx Last Taken Unknown] metronidazole 500 mg tablet 500 mg PO TID #42 tabs 07/14/23 [Rx Last Taken Unknown] Allergy/AdvReac Type Severity Reaction Status Date / Time cyclobenzaprine Allergy Other Verified 07/14/23 15:15 [From Flexeril] tizanidine [From Zanaflex] Allergy Other Verified 07/14/23 15:15 Family History Sister Breast cancer Grandmother Diabetes Surgical History History of lumpectomy of left breast Hx of cervical spine surgery Hx of cholecystectomy Social History housing: fpc Smoking Status: Former smoker alcohol intake: never substance use type: does not use ROS ROS ED Constitutional Constitutional ED: Denies chills or fever(s) Cardiovascular Cardiovascular: Denies chest pain Respiratory/Chest Respiratory/Chest: Denies cough or dyspnea Gastrointestinal Gastrointestinal: Reports abdominal pain, diarrhea and nausea; Denies melena or vomiting Genitourinary Genitourinary ED: Reports dysuria and urinary frequency; Denies hematuria Musculoskeletal Musculoskeletal: Denies arthralgias or myalgias Integumentary Denies rash Neurologic Neurologic: Denies headache(s) Hematologic/Lymphatic Hematologic/Lymphatic: Denies easy bleeding or easy bruising EXAM Physical Exam Const Vital Signs: 07/14/23 15:15 07/14/23 17:25 07/14/23 19:07 Temperature 97.4 F L Temperature Source Temporal Pulse Rate 91 93 92 Respiratory Rate 16 18 17 Blood Pressure 123/64 H 104/73 104/43 L Blood Pressure Mean 83 83 Pulse Ox 97 97 98 Oxygen Delivery Method Nasal Cannula Oxygen Flow Rate (L/min) 1.5 Positive well nourished and well developed General Appearance ED: well developed and NAD HEENT Reports moist mucous membranes Eyes PERRL Neck supple Neck Narrative: Decreased range of motion of the neck Resp normal respiratory effort and clear to auscultation bilaterally GI Auscultation: hyperactive bowel sounds Palpation: soft and tender LLQ; Negative for guarding, rigid or rebound tenderness present Back/Spine no CVA tenderness Thoracic Spine / Upper Back: Negative for thoracic spinal tenderness Lumbar Spine / Lower Back: Negative for lumbar spinal tenderness Extremity full ROM Neuro moves all extremities Sensorium / Orientation: alert, oriented to person, oriented to place and oriented to time Psych mental status grossly normal and thought process normal MDM MDM MDM Narrative Medical decision making narrative: Patient's evaluated for worsening left lower quadrant abdominal pain. No vital signs are normal. Differential includes pyelonephritis, urinary tract infection, colitis, renal colic and diverticulitis. As patient's vital signs are normal and she does not appear clinically dehydrated on exam will defer IV fluids at this time. We will give a dose of Zofran and morphine for symptom control while work-up is pending. Patient has symptomatic improvement with these interventions. She is a chronic appearing anemia and thrombocytopenia which are stable. She does not have a leukocytosis. Urinalysis is not consistent with infection. CMP largely unremarkable. Her CT abdomen pelvis shows recurrent or persistent acute sigmoiddiverticulitis as well as multiple cystic pancreatic lesions. Patient is informed of these findings. Case is discussed with on-call GI, Dr. Raya, who recommends treating for sigmoid diverticulitis but wonders if there is an underlying inflammatory disorder that is predisposing her to this. Recommends after a course of Cipro and Flagyl for 2 weeks starting her on a course of mesalamine. By that time patient will have outpatient GI follow-up. Patient isalso prescribed a short course of [place] for pain control. Is given first dose of antibiotics while in the emergency room. Is given return precautions. She verbalizes agreement nursing this plan. Discharged back to nursing facility in stable condition. History & Record Review Additional record(s) reviewed:: Prior outpatient record Lab Data Attestation: I reviewed the patient's lab results. Labs: Laboratory Results - last 24 hr 07/14/23 07/14/23 15:47 17:34 WBC 4.6 RBC 3.10 L Hgb 8.8 L Hct 31.4 L MCV 101.3 H MCH 28.4 MCHC 28.0 L RDW Std Deviation 53.1 H RDW Coeff of Amanda 14.4 Plt Count 117 L MPV 8.9 Immature Gran % (Auto) 0.400 Neut % (Auto) 76.9 H Lymph % (Auto) 14.7 L Sevier % (Auto) 6.5 Eos % (Auto) 1.3 Baso % (Auto) 0.2 Absolute Neuts (auto) 3.6 Absolute Lymphs (auto) 0.68 L Nucleated RBC % 0 Sodium 144 Potassium 3.7 Chloride 103 Carbon Dioxide 40.0 H Anion Gap 1 L BUN 23 H Creatinine 0.61 Estim Creat Clear Calc 45.09 Est GFR (MDRD) Af Amer 123 Est GFR (MDRD) Non-Af 102 BUN/Creatinine Ratio 37.6 H Glucose 127 H Calcium 8.8 Total Bilirubin 0.30 AST 17 ALT 25 Alkaline Phosphatase 76 Total Protein 7.0 Albumin 2.6 L Globulin 4.4 H Albumin/Globulin Ratio 0.6 L Urine Color Yellow Urine Clarity Clear Urine pH 6.0 Ur Specific Highland 1.020 Urine Protein 15 H Urine Glucose (UA) Normal Urine Ketones Negative Urine Occult Blood Negative Urine Nitrite Negative Urine Bilirubin Negative Urine Urobilinogen Normal Ur Leukocyte Esterase Negative Urine RBC 0-5 SEEN Urine WBC 0 SEEN Ur Squamous Epith Cells 0 SEEN Urine Bacteria 0 SEEN Urine Mucus 0 SEEN Radiography Diagnostic Testing: Clinical Impression(s) from Imaging Studies Abdomen/Pelvis CT 07/14/23 15:34 IMPRESSION: Findings consistent with persistent or recurrent acute sigmoid diverticulitis. Consider follow-up evaluation for underlying inflammatory malignancy. Multiple cystic pancreatic lesions in the head, body and tail. Differential diagnosis includes both benign and malignant cystic lesions and close follow-up including correlation with dedicated pancreatic MRI recommended. Multiple chronic findings as above. Electronically Signed: Jose Rey MD at 17:51 EDT , Discharge Plan Triage Chief Complaint: Abd Pain ED Provider: Shahnaz Way Dx/Rx/DC Orders Clinical Impression: Colitis, Diverticulitis Instructions: ED Understanding Colitis, ED Diverticulitis Prescriptions: New ciprofloxacin HCl [Cipro] 500 mg tablet 500 mg PO Q12H Qty: 28 0RF metronidazole 500 mg tablet 500 mg PO TID Qty: 42 0RF mesalamine 1.2 gram tablet,delayed release (DR/EC) 2.4 g PO DAILY 28 Days Qty: 56 0RF hydrocodone-acetaminophen 5-325 mg tablet 1 tab PO Q6H PRN PRN (Reason: Pain) 3 Days Qty: 12 0RF No Action bisacodyl 10 mg suppository 10 mg PA DAILY PRN cranberry 400 mg capsule 400 mg PO DAILY folic acid 1 mg tablet 1 mg PO DAILY glucagon 1 mg kit IM ferrous sulfate 325 mg (65 mg iron) tablet 325 mg PO BID ondansetron HCl 4 mg tablet 4 mg PO Q8H PRN pantoprazole 40 mg tablet,delayed release (DR/EC) 40 mg PO DAILY Senna Plus 8.6-50 mg capsule 1 tab-cap PO BID PRN simethicone [Gas Relief (simethicone)] 80 mg tablet,chewable 80 mg PO BID-QID PRN nystatin 100,000 unit/gram cream 1 applic TOPICAL BID simvastatin 10 mg tablet 10 mg PO QHS docusate sodium 100 mg capsule 100 mg PO DAILY PRN (Reason: constipation) Qty: 60 0RF acetaminophen 325 mg Tablet 325 mg PO DAILY potassium chloride 20 mEq tablet,ER particles/crystals 20 meq PO DAILY glimepiride 4 mg tablet 1 mg PO DAILY gabapentin 100 mg capsule 100 mg PO TID furosemide 40 mg tablet 20 mg PO DAILY carvedilol 3.125 mg tablet 3.125 mg PO BID lisinopril 2.5 mg tablet 2.5 mg PO DAILY Primary Care Provider: Jonathan Dillard Referrals: Jonathan Dillard MD [Primary Care Provider] - Activity Restrictions/Additional Instructions: Your CT showed inflammation of the sigmoid colon as well as diverticulitis. This case was discussed with our GI doctor on-call, Dr. Raya. He recommended treating you for sigmoid diverticulitis with antibiotics (ciprofloxacin and Flagyl/metronidazole). Once you have completed the 2-week course of antibioticshe recommend starting you on an anti-inflammatory for possible inflammatory bowel disease called mesalamine. Do not start this until after you finish the antibiotics. Please follow-up with your GI doctor as scheduled this month. Return to ER if you have a progression or worsening of your symptoms. Disposition Disposition: Home, Self Care What to do if you have Problems For any increased pain, shortness of breath, bleeding, nausea or vomiting, chestpain, or any unexpected problems, contact your Primary Care Provider. Call [facility] ([phone]) or report to the closest Emergency Room. Call 911 if necessary. 07/14/231946 <Electronically signed by Shahnaz Way DO> Cosigner Signature (if applicable): CC: Jonathan Dillard MD ~ Signed [facility] Work Phone: [phone] Vela [facility] April 19, 2023 7:53pm Note Date/Time April 19, 2023 6:13p m [facility] Medical Records Department [address] [place] [address] Emergency Department Summary 04/19/23 MR#: [id number] Acct: [id number] Name: POLI RAMIREZ Rep #:[id number] : 1950 72 From: Alejandra Vela DO PCP: Gilma STUBBS, Jonathan Status:REG ER Location: ED HPI HPI - GI History of Present Illness Chief Complaint: Abd Pain Narrative Narrative: 72-year-old female presenting with left lower quadrant abdominal pain. She states this has been present off and on for weeks. She states that the [facility] she gets T[facility]enol for this and it goes away but over the last few days the Tylenol is not helping. She has nausea without vomiting. She denies constipation. She states she has loose stools its not quite diarrhea. No blackor bloody stools. She states that at times there is right-sided abdominal pain. She has not had a fever at home. 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 Chronic respiratory failure with hypoxia COPD (chronic obstructive pulmonary disease) Dysphagia Essential hypertension GERD (gastroesophageal reflux disease) History of falling Insomnia, unspecified Iron deficiency anemia Lung nodules Muscle weakness (generalized) Myocardial infarction Obstructive sleep apnea On mechanically assisted ventilation Other displaced fracture of seventh cervical vertebra, subsequent encounter for fracture with routine healing Other displaced fracture of sixth cervical vertebra, subsequent encounter for fracture with routine healing Other lack of coordination Other pancytopenia Personal history of malignant neoplasm of breast Personal history of nicotine dependence Pneumonia Primary osteoarthritis, left shoulder Primary osteoarthritis, right shoulder Pure hypercholesterolemia Respiratory failure with hypoxia Thrombocytopenia Type 2 diabetes mellitus with diabetic neuropathy Unspecified abnormalities of gait and mobility Urinary incontinence Venous insufficiency Venous insufficiency (chronic) (peripheral) Vitamin B12 deficiency Home Medications nystatin 100,000 unit/gram topical cream 1 applic topical BID Check with primarydoctor 11/24/21 [History Last Taken Unknown] omeprazole 20 mg capsule,delayed release 20 mg PO DAILY ACID REFLUX 11/24/21 [History Last Taken Unknown] simvastatin 10 mg tablet 10 mg PO QHS CHOLESTEROL 11/24/21 [History Last Taken Unknown] bisacodyl 10 mg rectal suppository 10 mg PA DAILY PRN 11/11/22 [History Last Taken Unknown] cranberry 400 mg capsule 400 mg PO DAILY SUPPLEMENT 11/11/22 [History Last Taken Unknown] cyanocobalamin (vitamin B-12) 1,000 mcg capsule 1,000 mcg PO DAILY SUPPLEMENT 11/11/22 [History Last Taken Unknown] folic acid 1 mg tablet 1 mg PO DAILY SUPPLEMENT 11/11/22 [History Last Taken Unknown] glucagon 1 mg injection kit mg IM 11/11/22 [History Last Taken Unknown] docusate sodium 100 mg capsule 100 mg PO DAILY PRN constipation #60 caps 02/25/23 [Rx Last Taken Unknown] ipratropium 0.5 mg-albuterol 3 mg (2.5 mg base)/3 mL nebulization soln 3 ml inhalation Q8H 30 days #0 mL 02/25/23 [Rx Last Taken Unknown] acetaminophen 325 mg tablet 325 mg PO DAILY PAIN 04/19/23 [History Last Taken Unknown] carvedilol 3.125 mg tablet 3.125 mg PO BID HEART 04/19/23 [History Last Taken Unknown] ciprofloxacin HCl 500 mg tablet 500 mg PO BID #14 TABLETS 04/19/23 [Rx Last Taken Unknown] furosemide 40 mg tablet 20 mg PO DAILY FLUID 04/19/23 [History Last Taken Unknown] gabapentin 100 mg capsule 100 mg PO TID NERVE PAIN 04/19/23 [History Last Taken Unknown] glimepiride 4 mg tablet 1 mg PO DAILY DIABETES 04/19/23 [History Last Taken Unknown] lisinopril 2.5 mg tablet 2.5 mg PO DAILY BLOOD PRESSURE 04/19/23 [History Last Taken Unknown] metronidazole 500 mg tablet 500 mg PO Q8H 7 days #21 tabs 04/19/23 [Rx Last Taken Unknown] nitrofurantoin monohydrate/macrocrystals 100 mg capsule (Macrobid) 100 mg PO BIDUTI 04/19/23 [History Last Taken Unknown] ondansetron 4 mg disintegrating tablet 4 mg PO Q8H PRN PRN Nausea #14 tabs 04/19/23 [Rx Last Taken Unknown] potassium chloride 20 mEq tablet,extended release(part/cryst) 20 meq PO DAILY SUPPLEMENT 04/19/23 [History Last Taken Unknown] Allergy/AdvReac Type Severity Reaction Status Date / Time cyclobenzaprine Allergy Other Verified 04/19/23 16:41 [From Flexeril] tizanidine [From Zanaflex] Allergy Other Verified 04/19/23 16:41 Family History Sister Breast cancer Grandmother Diabetes Surgical History History of lumpectomy of left breast Hx of cervical spine surgery Hx of cholecystectomy Social History housing: [facility]pc Smoking Status: Former smoker alcohol intake: never substance use type: does not use ROS ROS ED Constitutional Constitutional ED: Denies chills, fever(s) or sweats Eyes Eyes: Denies blurry vision or change in vision ENT ENT ED: Denies ear pain or sore throat Cardiovascular Cardiovascular: Denies chest pain, palpitations or racing heartbeat Respiratory/Chest Respiratory/Chest: Denies cough, dyspnea or sputum Gastrointestinal Gastrointestinal: Reports abdominal pain, diarrhea and nausea; Denies constipation or vomiting Genitourinary Genitourinary ED: Denies dysuria, hematuria or urinary frequency Musculoskeletal Musculoskeletal: Denies arthralgias, myalgias or neck pain Integumentary Denies abscess, Abrasions or rash Neurologic Neurologic: Denies headache(s), paresthesias or weakness Psychiatric Psychiatric: Denies anxiety, depression, suicidal ideation or suicidal thoughts Endocrine Endocrinology: Denies polydipsia or polyuria EXAM Physical Exam Const Vital Signs: 04/19/23 16:41 04/19/23 16:45 04/19/23 17:45 Temperature 97.1 F L 97.1 F L 97.7 F L Temperature Source Temporal Temporal Temporal Pulse Rate 83 84 86 Respiratory Rate 17 17 19 H Blood Pressure 136/71 H 136/71 H 116/69 Blood Pressure Mean 92 92 84 Pulse Ox 95 99 100 Oxygen Delivery Method Nasal Cannula Nasal Cannula Nasal Cannula Oxygen Flow Rate (L/min) 2 2 2 04/19/23 18:00 04/19/23 18:40 04/19/23 19:00 Temperature 97.7 F L 97.7 F L Temperature Source Temporal Temporal Pulse Rate 84 84 82 Respiratory Rate 20 H 18 Blood Pressure 112/49 L 126/66 H Blood Pressure Mean 70 86 Pulse Ox 100 100 Oxygen Delivery Method Nasal Cannula Nasal Cannula Oxygen Flow Rate (L/min) 2 2 Positive well nourished and obese General Appearance ED: NAD; Negative for pallor Nutritional Appearance: obese HEENT Reports moist mucous membranes Eyes PERRL and EOMs intact bilaterally Neck no lymphadenopathy Resp normal respiratory effort and clear to auscultation bilaterally Auscultation: Negative for rales, rhonchi or wheezes Cardio regular rate and regular rhythm GI Palpation: tender LLQ and periumbilical Neuro CN's II-XII intact bilaterally and moves all extremities Sensorium / Orientation: alert Motor Exam: strength 5/5 throughout Psych mental status grossly normal and thought process normal Skin no wounds General Skin Exam: Negative for jaundice or pallor MDM MDM MDM Narrative Medical decision making narrative: 72-year-old female presenting with abdominal pain for weeks. She states is worse. She states Tylenol was helping and now it does not. Differential includes but is not limited to diverticulitis, colitis, small bowel obstruction,UTI, pyelonephritis, kidney stone, malignancy. CBC to assess white blood cell count, hemoglobin, platelets, differential. CMP to assess liver function, renalfunction, electrolytes, glucose, anion gap. Urinalysis to assess for UTI. IV line was established. Patient medicated with morphine and Zofran. Blood work reviewed and she does not have a leukocytosis. Hemoglobin stable at 9.6. This is near her baseline. Creatinine is normal. There is some prerenal azotemia however. Electrolytes unremarkable. Liver function normal. Urinalysis negative for infection. CT of the abdomen pelvis with IV contrast was obtained and shows what appears to be a sigmoid colitis. There is also noted splenic hypodensities and a left-sided adrenal mass. Recommendation was for follow-up in the future with MRI. This was discussed with the on-call physician for the [facility]. They wish to have the patient started on Cipro and Flagyl for home. She is also given Zofran. They will take care of pain medication if she needs it. Patient counseled on all findings. All questions were answered. Sheis discharged home in stable condition. Impression: 1. Abdominal pain 2. Colitis 3. Splenic hypodensities 4. Left-sided adrenal mass Lab Data Attestation: I reviewed the patient's lab results. Labs: Laboratory Results - last 24 hr 0604/19/23 04/19/23 16:53 16:53 19:08 WBC 6.3 RBC 3.35 L Hgb 9.6 L Hct 33.0 L MCV 98.5 MCH 28.7 MCHC 29.1 L RDW Std Deviation 50.7 H RDW Coeff of Amanda 14.2 Plt Count 103 L MPV 9.5 Immature Gran % (Auto) 0.500 Neut % (Auto) 81.7 H Lymph % (Auto) 11.2 L Sevier % (Auto) 5.5 Eos % (Auto) 0.9 Baso % (Auto) 0.2 Absolute Neuts (auto) 5.2 Absolute Lymphs (auto) 0.71 L Nucleated RBC % 0 Sodium 146 H Potassium 3.9 Chloride 102 Carbon Dioxide 41.0 H Anion Gap 3 L BUN 23 H Creatinine 0.64 Estim Creat Clear Calc 45.09 Est GFR (MDRD) Af Amer 118 Est GFR (MDRD) Non-Af 97 BUN/Creatinine Ratio 36.2 H Glucose 108 H Calcium 9.3 Total Bilirubin 0.40 AST 16 ALT 21 Alkaline Phosphatase 96 Total Protein 7.7 Albumin 3.1 L Globulin 4.6 H Albumin/Globulin Ratio 0.7 L Urine Color Yellow Urine Clarity Clear Urine pH 6.5 Ur Specific Highland 1.010 Urine Protein Negative Urine Glucose (UA) Normal Urine Ketones Negative Urine Occult Blood Negative Urine Nitrite Negative Urine Bilirubin Negative Urine Urobilinogen Normal Ur Leukocyte Esterase Negative Urine RBC 0 SEEN Urine WBC 0 SEEN Ur Squamous Epith Cells 0 SEEN Urine Bacteria 0 SEEN Urine Mucus 0 SEEN Radiography Diagnostic Testing: Clinical Impression(s) from Imaging Studies Abdomen/Pelvis CT 04/19/23 17:38 IMPRESSION: (NOT LISTED IN ORDER OF SIGNIFICANCE) Diffuse inflammation and wall thickening of the sigmoid colon suggesting a colitis. Multiple hypodense lesions in the spleen. ACR White Paper guidelines (Heltosha, et al. JACR 2013; 10(11):833-9) suggest a follow-up abdominal MRI in 6-12 months. There is a 14mm dense nodule in the right kidney. This is 63 hu. ACR White Paper guidelines (Freddie, et al. JACR 2018; 15(2):264-273) recommend MRI or CT without and with intravenous contrast. Non obstructive 2 mm left renal parenchymal stones. 29m left adrenal mass. This is 100 HU. ACR White Paper guidelines (Bailey et al. JACR 2017; 14(8):6429-4644) recommend a low dose, non-contrast adrenal CT or chemical-shift adrenal MRI follow-up study. Other findings as above. Electronically Signed: Edward Gamboa MD at 18:58 EDT Reading Location ID and State: [facility] / [place] , Service support , Discharge Plan Triage Chief Complaint: Abd Pain ED Provider: Alejandra Vela Dx/Rx/DC Orders Instructions: ED Understanding Colitis Prescriptions: New ciprofloxacin HCl 500 mg tablet 500 mg PO BID Qty: 14 0RF metronidazole 500 mg tablet 500 mg PO Q8H 7 Days Qty: 21 0RF ondansetron 4 mg tablet,disintegrating 4 mg PO Q8H PRN PRN (Reason: Nausea) Qty: 14 0RF No Action bisacodyl 10 mg suppository 10 mg PA DAILY PRN cranberry 400 mg capsule 400 mg PO DAILY folic acid 1 mg tablet 1 mg PO DAILY glucagon 1 mg kit IM cyanocobalamin (vitamin B-12) 1,000 mcg capsule 1,000 mcg PO DAILY nystatin 100,000 unit/gram cream 1 applic TOPICAL BID omeprazole 20 mg capsule,delayed release(DR/EC) 20 mg PO DAILY simvastatin 10 mg tablet 10 mg PO QHS ipratropium-albuterol 0.5 mg-3 mg(2.5 mg base)/3 mL Solution For Nebulization 3 ml inhalation Q8H 30 Days Qty: 0 0RF docusate sodium 100 mg capsule 100 mg PO DAILY PRN (Reason: constipation) Qty: 60 0RF acetaminophen 325 mg Tablet 325 mg PO DAILY potassium chloride 20 mEq tablet,ER particles/crystals 20 meq PO DAILY glimepiride 4 mg tablet 1 mg PO DAILY gabapentin 100 mg capsule 100 mg PO TID nitrofurantoin monohyd/m-cryst [Macrobid] 100 mg Capsule 100 mg PO BID furosemide 40 mg tablet 20 mg PO DAILY carvedilol 3.125 mg tablet 3.125 mg PO BID lisinopril 2.5 mg tablet 2.5 mg PO DAILY Primary Care Provider: Jonathan Dillard Referrals: Jonathan Dillard MD [Primary Care Provider] - Disposition Disposition: Home, Self Care What to do if you have Problems For any increased pain, shortness of breath, bleeding, nausea or vomiting, chestpain, or any unexpected problems, contact your Primary Care Provider. Call [facility] ([phone]) or report to the closest Emergency Room. Call 911 if necessary. 04/19/231952 <Electronically signed by Alejandra Vela DO> Cosigner Signature (if applicable): CC: Jonathan Dillard MD ~ Signed [facility] Work Phone: 1(396) 491-209004-14-[address] Jaime [facility] February 25, 2023 11:39am Note Date/Time February 25, 2023 11: 37am [facility] Medical Records Department [address] [place] [address] Transfer to [facility] MR#: [id number] Acct: [id number] Name: POLI RAMIREZ Rep #:[id number] : 1950 72 From: Pratima Jaime MD PCP: ARLENE Edmonds Status:ADM I N Certification of patient admission REQUIRED AT TIME OF ADMISSION. I CERTIFY THAT POST-HOSPITAL ECF SERVICES ARE REQUIRED TO BE GIVEN ON AN IN-PATIENT BASIS BECAUSE OF THE ABOVE NAMED PATIENT'S NEED FOR GROUP HOME CARE ON A CONTINUING BASIS FOR THE CONDITION(S) FOR WHICH HE/SHE WAS RECEIVING IN-PATIENT HOSPITAL SERVICES PRIOR TO HIS/HER TRANSFER TO THE F. 02/25/23 1139<Electronically signed by Pratima Jaime MD> Diet Diet Order/Speech Therapy: 02/21/23 12:19 ADA [Diet: Cardiac: Calorie-Controlled] Food consistency:: Regular Liquid Consistency:: Regular/Thin Dietary Modifications:: No Added Salt Is pt able to select menu?: No Fluid restriction:: 2000 mL How many daily calories?: 1800 calorie Routine Orders/Code Status Suppository Type: Dulcolax 10mg Suppository Frequency: Daily PRN Routine Lab Work: BMP (2-3 days) Wound(s) Left Buttock: Wound Type: Pressure Injury Therapies Physical Therapy: Eval and Treat Occupational Therapy: Eval and Treat Problem/Diagnosis (1) Cardiomyopathy: Status: Acute Code(s): I42.9 - Cardiomyopathy, unspecified (2) Acute on chronic respiratory failure with hypoxia and hypercapnia: Status: Chronic Code(s): J96.21 - Acute and chronic respiratory failure with hypoxia; J96.22 - Acute and chronic respiratory failure with hypercapnia (3) Anemia: Status: Acute Code(s): D64.9 - Anemia, unspecified (4) Congestive heart failure (CHF): Status: Acute Code(s): I50.9 - Heart failure, unspecified (5) Pneumonia: Status: Acute Code(s): J18.9 - Pneumonia, unspecified organism (6) Lower extremity edema: Status: Acute Code(s): R60.0 - Localized edema (7) Hyperglycemia: Status: Acute Code(s): R73.9 - Hyperglycemia, unspecified (8) Lung nodules: Status: Acute Code(s): R91.8 - Other nonspecific abnormal finding of lung field Plan 72-year-old female history of COPD, GERD, hypertension, type 2 diabetes mellitus, displaced fracture of cervical vertebra resulting in fpc placement, VTE presented to [facility] 02/18/23 due to unresponsiveness. She was found unresponsive by the [facility] where she lived. She was found to be hypoxic in the 70s and she was intubated. She was started on vancomycin and Zosyn and given Lasix, cultures were obtained. It wasfelt that her acute on chronic combined respiratory failure was multifactorial due to an echo finding her EF at 10% with severely dilated left ventricle and severe global left ventricular dysfunction and her fluid overload on presentation as well as concern for pneumonia. She completed an antibiotic course for pneumonia and was aggressively diuresed and responded well to this. Also required a milrinone drip while in the ICU and lisinopril and she respondedvery well to that. After extubation she did have some diarrhea but C. difficilenegative and this improved by day of discharge. During her hospitalization she did have low hemoglobin but no signs or symptoms of bleeding and FOBT negative. Her hemoglobin was stable and this felt to be chronic in nature. Blood pressuresomewhat low but suspect this is due to her heart failure. Jardiance and spironolactone were held and she was continued on Coreg 3.125 mg twice daily, lisinopril 2.5 mg daily, Lasix 20 mg daily and tolerated this well. Can have further adjustments on an outpatient basis. On day of discharge feeling well, diarrhea improved, no other acute complaints. She completed her antibiotics course for pneumonia. DISCHARGE INSTRUCTIONS PLEASE READ -You have had several medication changes, he will be taking Coreg 3.125 mg twicedaily, lisinopril 2.5 mg daily, Lasix 20 mg daily. -You will stop your losartan and your metoprolol -Due to your low blood pressure your gabapentin 300 mg 3 times daily has been held, this can be restarted on an outpatient basis as blood pressure improves -Your blood glucose for your age was reasonable without medication, would adviseholding your Amaryl as this will increase risk of hypoglycemia -Would recommend lab work ([facility]) to check your kidney function in 2 to 3 days through your primary care physician's office. Please call their office upon discharge to obtain order for lab work. -You will need to follow-up with cardiology upon discharge, please call the office upon discharge to schedule your hospital follow-up appointment ) -Weigh yourself every day. A sudden weight gain can mean you are retaining fluid. Weigh yourself at the same time of day and in the same kind of clothes. Ideally, weigh yourself first thing in the morning after you empty your bladder,but before you eat breakfast. -Please call your physician if your weight goes up by more than 2 pounds in 1 day or 5 pounds in 1 week. This can be a sign that you are retaining more fluid than you should be. -You will need a follow-up CT scan in 3 months to evaluate nodule seen on your imaging -Additionally you have a 1.3 cm asymmetrical density in the anterior left breastand you will need an outpatient diagnostic mammogram for this- It is strongly advised that you refrain from any substance use. -Please call your primary care provider's office upon discharge to schedule a hospital follow up within 1 week. -For any concerning signs or symptoms please call 911 or proceed to the nearest emergency department #Acute on chronic hypoxic hypercapnic resp failure 2/2 PNA and acute HFrEF #Diarrhea- resolved #Acute HFrEF #Type 2 diabetes mellitus- diet controlled #Chronic anemia/thrombocytopenia #Cervical spine fracture of sixth and seventh cervical vertebrae #1.3 cm asymmetric density in the anterior left breast #Incidental lung nodules Allergies/Procedures Done in Hospital Allergies cyclobenzaprine [From Flexeril] Allergy (Verified 02/17/23 22:35) Other tizanidine [From Zanaflex] Allergy (Verified 02/17/23 22:35) Other Procedures: - (Intubation, extubation, lower venous study, chest CT, echocardiogram, brain CT) Type of Care/Length of Stay Estimated LOS: Convalescent Care Less Than 30 days Type of Care Needed: Skilled Rehab Potential: Fair Prognosis: Fair Additional Orders/Day of Discharge Day of Discharge: 02/25/23 Dietary and Speech Recommendations Dietitian Recommendations/Changes: Recommend 1800 CCD/No Added salt diet to manage medical conditions. Discharge Plan Admission Admit Date/Time: 02/18/23 00:19 Primary Reason for Your Visit: Low oxygen levels Attending Provider: Pratima Jaime Primary Care Provider: Barber Carlisle NP Consulting Providers: Serge Banks ; Ajit Mcgill ; Martín Monique ; Krzysztof Pennington ; Viji Richey NP ; Rebecca Resendiz ; Thomas Ahumada ; Hernando Padron Instructions Patient Instructions: Coping with Heart Failure, Cardiomyopathy Dc Additional Instructions / Restrictions: DISCHARGE INSTRUCTIONS PLEASE READ -You have had several medication changes, he will be taking Coreg 3.125 mg twicedaily, lisinopril 2.5 mg daily, Lasix 20 mg daily. -You will stop your losartan and your metoprolol -Due to your low blood pressure your gabapentin 300 mg 3 times daily has been held, this can be restarted on an outpatient basis as blood pressure improves -Your blood glucose for your age was reasonable without medication, would adviseholding your Amaryl as this will increase risk of hypoglycemia -Would recommend lab work (BMP) to check your kidney function in 2 to 3 days through your primary care physician's office. Please call their office upon discharge to obtain order for lab work. -You will need to follow-up with cardiology upon discharge, please call the office upon discharge to schedule your hospital follow-up appointment ) -Weigh yourself every day. A sudden weight gain can mean you are retaining fluid. Weigh yourself at the same time of day and in the same kind of clothes. Ideally, weigh yourself first thing in the morning after you empty your bladder,but before you eat breakfast. -Please call your physician if your weight goes up by more than 2 pounds in 1 day or 5 pounds in 1 week. This can be a sign that you are retaining more fluid than you should be. -You will need a follow-up CT scan in 3 months to evaluate nodule seen on your imaging -Additionally you have a 1.3 cm asymmetrical density in the anterior left breastand you will need an outpatient diagnostic mammogram for this- It is strongly advised that you refrain from any substance use. -Please call your primary care provider's office upon discharge to schedule a hospital follow up within 1 week. -For any concerning signs or symptoms please call 911 or proceed to the nearest emergency department Discharge Orders/Prescriptions Prescriptions: New furosemide 40 mg Tablet 20 mg PO DAILY 30 Days Qty: 0 0RF ipratropium-albuterol 0.5 mg-3 mg(2.5 mg base)/3 mL Solution For Nebulization 3 ml inhalation Q8H 30 Days Qty: 0 0RF carvedilol 3.125 mg Tablet 3.125 mg PO BID 30 Days Qty: 0 0RF lisinopril 2.5 mg Tablet 2.5 mg PO DAILY 30 Days Qty: 30 0RF Continued bisacodyl 10 mg suppository 10 mg PA DAILY PRN cranberry 400 mg capsule 400 mg PO DAILY Rx Instructions: administer with a meal ferrous sulfate 200 mg (40 mg iron) tablet PO folic acid 1 mg tablet 1 mg PO DAILY glucagon 1 mg kit IM cyanocobalamin (vitamin B-12) 1,000 mcg capsule 1,000 mcg PO DAILY nystatin 100,000 unit/gram cream 1 applic TOPICAL BID omeprazole 20 mg capsule,delayed release(DR/EC) 20 mg PO DAILY simvastatin 10 mg tablet 10 mg PO QHS Changed docusate sodium 100 mg capsule 100 mg PO DAILY PRN (Reason: constipation) Qty: 60 0RF Discontinued glimepiride [Amaryl] 1 mg tablet 1 mg PO DAILY oxycodone 5 mg capsule 5 mg PO Q6H PRN metoprolol succinate 50 mg tablet extended release 24 hr 50 PO DAILY losartan 100 mg tablet 100 mg PO DAILY gabapentin 300 mg capsule 300 mg PO TID Label Comments: TAKE (1) CAPSULE BY MOUTH IN THE MORNING, 2 CAPSULES BY MOUTH EACH EVEING AND 2 CAPSULES BY MOUTH AT BEDTIME Referrals / Follow Up: Miroslava Gonzalez MD [Med Staff - Active Staff] - See Referral Note (You will need to follow-up with cardiology upon discharge, please call the office upon discharge to schedule your hospital follow-up appointment )) Barber Carlisle NP, [employer] [Primary Care Provider] - Within 1 Week Disposition Disposition (needs filled in before D/C Order can be placed): [facility]ustodial Facility 02/25/23 113 <Electronically signed by Pratima Jaime MD> Cosigner Signature (if applicable): CC: [employer] Viji Richey; [employer] Barber Carlisle; Dr. Serge Banks MD; Dr. Hernando Padron MD; Dr. Ajit Mcgill DO; Dr. Thomas Ahumada MD; Dr. Rebecca Resendiz DO; Dr. Martín Monique MD; Dr. Krzysztof Pennington MD ~ [facility] Work Phone: 1(841) 675-429904-13-[address] Jaime [facility] February 24, 2023 3:21pm Note Date/Time February 24, 2023 3:2 1pm [facility] Medical Records Department [address] [place] [id number] Progress Note - Hospitalist 02/24/23 1519 MR#: [id number] Acct: [id number] Name: POLI RAMIREZ Rep #:[id number] : 1950 72 From: Pratima Jaime MD PCP: ARLENE Edmonds Status:ADM I N Location: [place] [address] Reason for Visit Reason for Visit: Diagnoses Anemia, unspecified (02/18/23) Metabolic encephalopathy (02/18/23) Cardiomyopathy, unspecified (02/18/23) Heart failure, unspecified (02/18/23) Pneumonia, unspecified organism (02/18/23) Chronic obstructive pulmonary disease, unspecified (02/18/23) Acute and chronic respiratory failure with hypoxia (02/18/23) Acute and chronic respiratory failure with hypercapnia (02/18/23) Respiratory disorder, unspecified (02/18/23) Localized edema (02/18/23) Hyperglycemia, unspecified (02/18/23) Other nonspecific abnormal finding of lung field (02/18/23) Dependence on respirator [ventilator] status (02/18/23) Subjective Subjective Certainly improving, nausea improving, diarrhea improving. Objective Data Objective Data Vital Signs: Vital Signs Temp Pulse Resp BP Pulse Ox O2 Del Method O2 Flow Rate 98.1 F 81 18 94/55 L 100 Nasal Cannula 1 02/24/23 15:00 02/24/23 15:00 02/24/23 15:00 02/24/23 15:00 02/24/23 15:00 02/24/23 15:00 02/24/23 15:00 FiO2 50 02/21/23 07:00 Oxygen Flow Rate (L/min) 1 Oxygen Delivery Method Nasal Cannula Weight: 84 kg Body Mass Index (BMI) 30.8 Intake & Output: Intake and Output for Last 24 Hours 02/22/23 02/23/23 02/24/23 23:59 23:59 23:59 Intake Total 425 / 425 630 / 730 440 / 440 Output Total 1000 / 1000 200 / 200 Balance -575 / -575 630 / 730 240 / 240 Lab / Micro Data Result Diagrams: 02/24/23 05:10 02/24/23 07:05 Labs: Laboratory Results - last 24 hr 02/24/23 05:10: WBC 5.9, RBC 3.25 L, Hgb 9.1 L, Hct 32.6 L, MCV 100.3 H, MCH 28.0, MCHC 27.9 L, RDW Std Deviation 54.9 H, RDW Coeff of Amanda 14.9 H, Plt Count 132 L, MPV 9.4, Immature Gran % (Auto) 0.500, Neut % (Auto) 80.1 H, Lymph % (Auto) 12.6 L, Sevier % (Auto) 5.1, Eos % (Auto) 1.5, Baso % (Auto) 0.2, Absolute Neuts (auto) 4.8, Absolute Lymphs (auto) 0.75 L, Nucleated RBC % 0 02/24/23 05:10: Sodium Cancelled, Potassium Cancelled, Chloride Cancelled, Carbon Dioxide Cancelled, Anion Gap Cancelled, BUN Cancelled, Creatinine Cancelled, Estim Creat Clear Calc Cancelled, Est GFR (MDRD) Af Amer Cancelled, Est GFR (MDRD) Non-Af Cancelled, BUN/Creatinine Ratio Cancelled, Glucose Cancelled, Calcium Cancelled, Total Bilirubin Cancelled, AST Cancelled, ALT Cancelled, Alkaline Phosphatase Cancelled, Total Protein Cancelled, Albumin Cancelled, Globulin Cancelled, Albumin/Globulin Ratio Cancelled 02/24/23 07:05: Sodium 142, Potassium 3.8, Chloride 103, Carbon Dioxide 37.0 H, Anion Gap 2 L, BUN 27 H, Creatinine 1.04 H, Estim Creat Clear Calc 43.35, Est GFR (MDRD) Af Amer 67, Est GFR (MDRD) Non-Af 55 L, BUN/Creatinine Ratio 26.0 H, Glucose 134 H, Calcium 9.2, Total Bilirubin 0.50, AST 20, ALT 26, Alkaline Phosphatase 77, Total Protein 7.4, Albumin 2.8 L, Globulin 4.6 H, Albumin/Globulin Ratio 0.6 L Micro: Microbiology 02/17/23 22:50 Blood Culture (Wb) - Left Forearm Blood Culture - Final No growth in 5 days. 02/17/23 22:28 Blood Culture (Wb) - Anticubital Left Blood Culture - Final No growth in 5 days. 02/20/23 19:10 Sputum, Induced/Lukens Gram Stain - Final 02/20/23 19:10 Sputum, Induced/Lukens Respiratory Culture - Final Presumptive C albicans 02/22/23 05:40 Stool C. difficile DNA Amplification - Final 02/20/23 11:45 Blood Culture (Wb) - Right Hand Blood Culture - Preliminary No growth in 48 hours. 02/22/23 05:40 Stool Stool Occult Blood (TATO) - Final 02/19/23 13:30 Urine Catheter - Barnes Urine Culture - Final Culture exhibits no growth. 02/18/23 00:35 Sputum, Induced/Lukens Gram Stain - Final 02/18/23 00:35 Sputum, Induced/Lukens Respiratory Culture - Final 02/17/23 22:33 Urine Catheter - Barnes Legionella Antigen - Final 02/17/23 22:33 Urine Catheter - Catheter Streptococcus pneumoniae Antigen (M- Final 02/17/23 22:35 Nasal Secretion SARS-CoV-2 & FLU Antigen (Rapid) - Final Rhythm Strip Rhythm Strip: Sinus Rhythm Rate: 91 Ectopy: None Physical Exam Narrative General: Awake, alert, no acute distress HEENT: Atraumatic, normocephalic Eyes: Anicteric, normal conjunctiva, extraocular movements grossly intact Neck: Supple Respiratory: Slightly diminished at the bases, normal respiratory effort Cardiovascular: Regular rate GI: Soft, nontender, nondistended Extremities: No significant edema Musculoskeletal: Moving all extremities Neuro: No overt focal neurological deficits Skin: No rashes appreciated Psych: Cooperative Assessment & Plan Assessment/Plan (1) Cardiomyopathy: (2) Acute on chronic respiratory failure with hypoxia and hypercapnia: (3) Anemia: (4) Congestive heart failure (CHF): (5) Pneumonia: (6) Lower extremity edema: (7) Hyperglycemia: (8) Lung nodules: PLAN: Plan #Acute on chronic hypoxic hypercapnic resp failure 2/2 PNA and acute HFrEF -Intubated on arrival -Improved, extubated 02/21/23 -Remains on vancomycin and Zosyn -Awaiting cultures -On scheduled nebs -02/22: Extubated and doing well, will transfer to PCU. Continued on diuresis. Milrinone discontinued. Bicarb increasing, unsure if this is due to volume contraction given diuresis or CO2 retention now that she is extubated, will obtain ABG. If retaining CO2 may need BiPAP nightly and as needed or if all dueto volume contraction may need to de-escalate Lasix. Continue nebs -02/23: Only using 1 L of O2, significantly improved. Yesterday had slightly elevated PCO2 at 52 but this is similar to what has been previously, bicarb did not increase any further. Continue Lasix. 2 more days of Zosyn to complete 7-day course -02/24: Patient only on 1 L of O2 for comfort. Blood pressure has been on the lower side and BUN/creatinine increased slightly, will decrease Lasix likely fortomorrow. Jardiance and Aldactone were held today but lisinopril and carvedilolcontinued. Once okay for DC from cardiology perspective can go back to SNF withfurther management and adjustment of medications on an outpatient basis now thatshe is stable. We will finish her Zosyn antibiotic course tomorrow #Diarrhea -C. difficile pending, had some nausea yesterday but improved today. Going to attempt to eat breakfast -02/23: Continues to have some diarrhea, C. difficile and FOBT were negative. -02/24: Improving #Acute HFrEF -Echo w/ EF 10% with severely dilated left ventricle and severe global left ventricular systolic dysfunction. -Cardiology following -Remains on milrinone. Date this evening, management per cardiology -Continuing diuresis -02/22: Started on 2.5 mg of lisinopril, is presently on 20 mg IV every 8 of Lasix, no increase in BUN and creatinine stable at this time, has had significant weight loss from 90.7 kg documented yesterday to 85.5 kg today. Hasfluid balance of -3 L. Can consider de-escalation and Lasix as patient has improved does not appear to be significantly overloaded at this time and additionally all cell lines in CBC increased and bicarb increased to 39 -02/23: BP low today so a.m. meds were held, will change lisinopril to daily and hold spironolactone and Jardiance and assess for blood pressure improvement so that she can continue Coreg, lisinopril, Lasix. Ultimately will benefit from all of the agents however must also balance BP Patient only on 1 L of O2 for comfort. Blood pressure has been on the lower side and BUN/creatinine increased slightly, will decrease Lasix likely for tomorrow. Jardiance and Aldactone were held today but lisinopril and carvedilolcontinued. Once okay for DC from cardiology perspective can go back to SNF withfurther management and adjustment of medications on an outpatient basis now thatshe is stable. #Type 2 diabetes mellitus -Glucose checks and sliding scale insulin -Home oral hypoglycemics held -02/23: Has not been requiring any sliding scale insulin, will DC glucose checks and sliding scale insulin at this time #Chronic anemia/thrombocytopenia -Transfuse if hemoglobin falls below 7 -Hemoglobin has been downtrending but no overt bleeding noted, possibly delusional given her IV fluids -We will check FOBT -02/22: Hemoglobin up to 8.5 today, still no signs symptoms of bleeding and FOBT negative -02/23: Hemoglobin stable #Cervical spine fracture of sixth and seventh cervical vertebrae -Pt/OT -Was reason for her nursing facility placement -We will return back upon DC #1.3 cm asymmetric density in the anterior left breast -Needs oupt diagnostic mammogram #Incidental lung nodules -Patient will need a follow-up CT scan in 3 months to evaluate for incidental nodules #DVT ppx: Lovenox subcu Pratima Jaime MD Time spent in the patient's overall evaluation,decision-making process, review of diagnostic data, adjustment of management, discussion with other providers, nursing nursing and ancillary staff involved in patient's care documentation, 30minutes Charges/Coding Visit Charges Inpatient E&M: 32385 Subs Hosp L2 02/24/23 1521 <Electronically signed by Pratima Jaime MD> Cosigner Signature (if applicable): CC: ~ Signed [facility] Work Phone: 1(459) 713-232004-12-[address] Jaime [facility] February 23, 2023 2:03pm Note Date/Time February 23, 2023 10: 52am [facility] Medical Records Department [address] [place] [address] Progress Note - Hospitalist 02/23/23 1051 MR#: [id number] Acct: [id number] Name: POLI RAMIREZ Rep #:[id number] : 1950 72 From: Pratima Jaime MD PCP: IDANIA EdmondsC Status:ADM I N Location: [place] [address] Reason for Visit Reason for Visit: Diagnoses Anemia, unspecified (02/18/23) Metabolic encephalopathy (02/18/23) Cardiomyopathy, unspecified (02/18/23) Heart failure, unspecified (02/18/23) Pneumonia, unspecified organism (02/18/23) Chronic obstructive pulmonary disease, unspecified (02/18/23) Acute and chronic respiratory failure with hypoxia (02/18/23) Acute and chronic respiratory failure with hypercapnia (02/18/23) Respiratory disorder, unspecified (02/18/23) Localized edema (02/18/23) Hyperglycemia, unspecified (02/18/23) Other nonspecific abnormal finding of lung field (02/18/23) Dependence on respirator [ventilator] status (02/18/23) Subjective Subjective Continues to feel better though reports this morning had felt slightly worse andnauseous but was given Zofran and throughout the day has been improving, denies worsening in breathing, still has cough Objective Data Objective Data Vital Signs: Vital Signs Temp Pulse Resp BP Pulse Ox O2 Del Method O2 Flow Rate 98.5 F 84 18 89/45 L 95 Nasal Cannula 1 02/23/23 09:20 02/23/23 09:20 02/23/23 09:20 02/23/23 09:20 02/23/23 09:20 02/23/23 09:20 02/23/23 09:20 FiO2 50 02/21/23 07:00 Oxygen Flow Rate (L/min) 1 Oxygen Delivery Method Nasal Cannula Weight: 84.1 kg Body Mass Index (BMI) 30.8 Intake & Output: Intake and Output for Last 24 Hours 02/21/23 02/22/23 02/23/23 23:59 23:59 23:59 Intake Total 1558.78 / 1558.78 425 / 425 100 / 100 Output Total 3705 / 3705 1000 / 1000 Balance -2146.22 / -2146.22 -575 / -575 100 / 100 Lab / Micro Data Result Diagrams: 02/23/23 05:09 02/23/23 05:09 Labs: Laboratory Results - last 24 hr 02/18/23 12:51: Miscellaneous Test 02/21/23 03:10: Diff Path Review Reviewed 02/22/23 11:27: POC Glucose 148 H 02/22/23 17:00: POC Glucose 142 H 02/22/23 21:39: POC Glucose 128 H 02/23/23 05:09: WBC 5.4, RBC 3.26 L, Hgb 9.0 L, Hct 31.6 L, MCV 96.9, MCH 27.6, MCHC 28.5 L, RDW Std Deviation 54.9 H, RDW Coeff of Amanda 15.3 H, Plt Count 135 L,MPV 8.9, Immature Gran % (Auto) 0.400, Neut % (Auto) 78.1 H, Lymph % (Auto) 13.7L, Sevier % (Auto) 6.1, Eos % (Auto) 1.5, Baso % (Auto) 0.2, Absolute Neuts (auto)4.2, Absolute Lymphs (auto) 0.74 L, Nucleated RBC % 0 02/23/23 05:09: Sodium 143, Potassium 3.3 L, Chloride 103, Carbon Dioxide 38.0 H, Anion Gap 2 L, BUN 22 H, Creatinine 0.90, Estim Creat Clear Calc 50.09, Est GFR (MDRD) Af Amer 79, Est GFR (MDRD) Non-Af 65, BUN/Creatinine Ratio 24.4 H, Glucose 135 H, Calcium 8.8, Total Bilirubin 0.70, AST 20, ALT 26, Alkaline Phosphatase 70, Total Protein 6.7, Albumin 2.5 L, Globulin 4.2, Albumin/GlobulinRatio 0.6 L 02/23/23 06:39: POC Glucose 134 H Micro: Microbiology 02/17/23 22:50 Blood Culture (Wb) - Left Forearm Blood Culture - Final No growth in 5 days. 02/17/23 22:28 Blood Culture (Wb) - Anticubital Left Blood Culture - Final No growth in 5 days. 02/20/23 19:10 Sputum, Induced/Lukens Gram Stain - Final 02/20/23 19:10 Sputum, Induced/Lukens Respiratory Culture - Final Presumptive C albicans 02/22/23 05:40 Stool C. difficile DNA Amplification - Final 02/20/23 11:45 Blood Culture (Wb) - Right Hand Blood Culture - Preliminary No growth in 48 hours. 02/22/23 05:40 Stool Stool Occult Blood (TATO) - Final 02/19/23 13:30 Urine Catheter - Barnes Urine Culture - Final Culture exhibits no growth. 02/18/23 00:35 Sputum, Induced/Lukens Gram Stain - Final 02/18/23 00:35 Sputum, Induced/Lukens Respiratory Culture - Final 02/17/23 22:33 Urine Catheter - Barnes Legionella Antigen - Final 02/17/23 22:33 Urine Catheter - Catheter Streptococcus pneumoniae Antigen (M- Final 02/17/23 22:35 Nasal Secretion SARS-CoV-2 & FLU Antigen (Rapid) - Final Rhythm Strip Rhythm Strip: Sinus Rhythm Rate: 91 Ectopy: None Physical Exam Narrative General: Awake, alert, no acute distress HEENT: Atraumatic, normocephalic Eyes: Anicteric, normal conjunctiva, extraocular movements grossly intact Neck: Supple Respiratory: Slightly diminished at the bases, normal respiratory effort Cardiovascular: Regular rate GI: Soft, nontender, nondistended Extremities: No significant edema Musculoskeletal: Moving all extremities Neuro: No overt focal neurological deficits Skin: No rashes appreciated Psych: Cooperative Assessment & Plan Assessment/Plan (1) Cardiomyopathy: (2) Acute on chronic respiratory failure with hypoxia and hypercapnia: (3) Anemia: (4) Congestive heart failure (CHF): (5) Pneumonia: (6) Lower extremity edema: (7) Hyperglycemia: (8) Lung nodules: PLAN: Plan #Acute on chronic hypoxic hypercapnic resp failure 2/2 PNA and acute HFrEF -Intubated on arrival -Improved, extubated 02/21/23 -Remains on vancomycin and Zosyn -Awaiting cultures -On scheduled nebs -02/22: Extubated and doing well, will transfer to PCU. Continued on diuresis. Milrinone discontinued. Bicarb increasing, unsure if this is due to volume contraction given diuresis or CO2 retention now that she is extubated, will obtain ABG. If retaining CO2 may need BiPAP nightly and as needed or if all dueto volume contraction may need to de-escalate Lasix. Continue nebs -02/23: Only using 1 L of O2, significantly improved. Yesterday had slightly elevated PCO2 at 52 but this is similar to what has been previously, bicarb did not increase any further. Continue Lasix. 2 more days of Zosyn to complete 7-day course #Diarrhea -C. difficile pending, had some nausea yesterday but improved today. Going to attempt to eat breakfast -02/23: Continues to have some diarrhea, C. difficile and FOBT were negative. #Acute HFrEF -Echo w/ EF 10% with severely dilated left ventricle and severe global left ventricular systolic dysfunction. -Cardiology following -Remains on milrinone. Date this evening, management per cardiology -Continuing diuresis -02/22: Started on 2.5 mg of lisinopril, is presently on 20 mg IV every 8 of Lasix, no increase in BUN and creatinine stable at this time, has had significant weight loss from 90.7 kg documented yesterday to 85.5 kg today. Hasfluid balance of -3 L. Can consider de-escalation and Lasix as patient has improved does not appear to be significantly overloaded at this time and additionally all cell lines in CBC increased and bicarb increased to 39 -02/23: BP low today so a.m. meds were held, will change lisinopril to daily and hold spironolactone and Jardiance and assess for blood pressure improvement so that she can continue Coreg, lisinopril, Lasix. Ultimately will benefit from all of the agents however must also balance BP #Type 2 diabetes mellitus -Glucose checks and sliding scale insulin -Home oral hypoglycemics held -02/23: Has not been requiring any sliding scale insulin, will DC glucose checks and sliding scale insulin at this time #Chronic anemia/thrombocytopenia -Transfuse if hemoglobin falls below 7 -Hemoglobin has been downtrending but no overt bleeding noted, possibly delusional given her IV fluids -We will check FOBT -02/22: Hemoglobin up to 8.5 today, still no signs symptoms of bleeding and FOBT negative -02/23: Hemoglobin stable #Cervical spine fracture of sixth and seventh cervical vertebrae -Pt/OT -Was reason for her nursing facility placement -We will return back upon DC #1.3 cm asymmetric density in the anterior left breast -Needs oupt diagnostic mammogram #Incidental lung nodules -Patient will need a follow-up CT scan in 3 months to evaluate for incidental nodules #DVT ppx: Lovenox subcu Pratima Jaime MD Time spent in the patient's overall evaluation,decision-making process, review of diagnostic data, adjustment of management, discussion with other providers, nursing nursing and ancillary staff involved in patient's care documentation, 30minutes Charges/Coding Visit Charges Inpatient E&M: 01170 Subs Hosp L2 02/23/23 1403 <Electronically signed by Pratima Jaime MD> Cosigner Signature (if applicable): CC: ~ Signed [facility] Work Phone: 1(752) 231-598104-12-[address] Gonzalez [facility] February 23, 2023 9:38am Note Date/Time February 23, 2023 9:3 8am [facility] Medical Records Department [address] [place] [address] Progress Note - Cardiology 02/23/23 0935 MR#: [id number] Acct: [id number] Name: POLI RAMIREZ Rep #:[id number] : 1950 72 From: Miroslava Gonzalez MD PCP: ARLENE Edmonds Status:ADM I N Location: [place] [address] Subjective Subjective No chest pain or shortness of breath. Objective Data Vital Signs: Vital Signs Temp Pulse Resp BP Pulse Ox O2 Del Method O2 Flow Rate 98.5 F 84 18 89/45 L 95 Nasal Cannula 1 02/23/23 09:20 02/23/23 09:20 02/23/23 09:20 02/23/23 09:20 02/23/23 09:20 02/23/23 09:20 02/23/23 09:20 FiO2 50 02/21/23 07:00 Oxygen Flow Rate (L/min) 1 Oxygen Delivery Method Nasal Cannula Weight: 185 lb 6.54 oz Body Mass Index (BMI) 30.8 Intake & Output: Intake and Output for Last 24 Hours 02/21/23 02/22/23 02/23/23 23:59 23:59 23:59 Intake Total 1558.78 / 1558.78 425 / 425 50 / 50 Output Total 3705 / 3705 1000 / 1000 Balance -2146.22 / -2146.22 -575 / -575 50 / 50 Lab / Micro Data Result Diagrams: 02/23/23 05:09 02/23/23 05:09 Labs: Laboratory Results - last 24 hr 02/18/23 12:51: Miscellaneous Test 02/21/23 15:42: POC Glucose 138 H 02/22/23 11:27: POC Glucose 148 H 02/22/23 17:00: POC Glucose 142 H 02/22/23 21:39: POC Glucose 128 H 02/23/23 05:09: WBC 5.4, RBC 3.26 L, Hgb 9.0 L, Hct 31.6 L, MCV 96.9, MCH 27.6, MCHC 28.5 L, RDW Std Deviation 54.9 H, RDW Coeff of Amanda 15.3 H, Plt Count 135 L,MPV 8.9, Immature Gran % (Auto) 0.400, Neut % (Auto) 78.1 H, Lymph % (Auto) 13.7L, Sevier % (Auto) 6.1, Eos % (Auto) 1.5, Baso % (Auto) 0.2, Absolute Neuts (auto)4.2, Absolute Lymphs (auto) 0.74 L, Nucleated RBC % 0 02/23/23 05:09: Sodium 143, Potassium 3.3 L, Chloride 103, Carbon Dioxide 38.0 H, Anion Gap 2 L, BUN 22 H, Creatinine 0.90, Estim Creat Clear Calc 50.09, Est GFR (MDRD) Af Amer 79, Est GFR (MDRD) Non-Af 65, BUN/Creatinine Ratio 24.4 H, Glucose 135 H, Calcium 8.8, Total Bilirubin 0.70, AST 20, ALT 26, Alkaline Phosphatase 70, Total Protein 6.7, Albumin 2.5 L, Globulin 4.2, Albumin/GlobulinRatio 0.6 L 02/23/23 06:39: POC Glucose 134 H Micro: Microbiology 02/17/23 22:50 Blood Culture (Wb) - Left Forearm Blood Culture - Final No growth in 5 days. 02/17/23 22:28 Blood Culture (Wb) - Anticubital Left Blood Culture - Final No growth in 5 days. 02/20/23 19:10 Sputum, Induced/Lukens Gram Stain - Final 02/20/23 19:10 Sputum, Induced/Lukens Respiratory Culture - Final Presumptive C albicans 02/22/23 05:40 Stool C. difficile DNA Amplification - Final 02/20/23 11:45 Blood Culture (Wb) - Right Hand Blood Culture - Preliminary No growth in 48 hours. 02/22/23 05:40 Stool Stool Occult Blood (TATO) - Final Rhythm Strip Rhythm Strip: Sinus Rhythm Rate: 91 Ectopy: None Cardiology Labs/Tests 02/23/23 05:09: WBC 5.4, RBC 3.26 L, Hgb 9.0 L, Hct 31.6 L, MCV 96.9, MCH 27.6, MCHC 28.5 L, Plt Count 135 L, MPV 8.9, Immature Gran % (Auto) 0.400, Neut % (Auto) 78.1 H, Lymph % (Auto) 13.7 L, Sevier % (Auto) 6.1, Eos % (Auto) 1.5, Baso % (Auto) 0.2, Absolute Neuts (auto) 4.2, Nucleated RBC % 0 02/23/23 05:09: Sodium 143, Potassium 3.3 L, Chloride 103, Carbon Dioxide 38.0 H, Anion Gap 2 L, BUN 22 H, Creatinine 0.90, Est GFR (MDRD) Af Amer 79, Est GFR (MDRD) Non-Af 65, BUN/Creatinine Ratio 24.4 H, Glucose 135 H, Calcium 8.8, TotalBilirubin 0.70 Rhythm: EKG: ECHO: Stress Test: Cardiac Cath: PCI: CT Surgery: Holter monitor: EPS: PPM: CXR: Chest CT Scan: Physical Exam Narrative Heart sounds 1 and 2 are noted. Regular rate and rhythm. Chest decreased breath sounds at bases. No ankle edema noted. Assessment & Plan Assessment/Plan (1) Congestive heart failure (CHF): PLAN: Improved. Presently compensated. Continue treatment. (2) Cardiomyopathy: PLAN: See #2 above. (3) Pneumonia: PLAN: As per critical care/internal medicine. (4) Anemia: PLAN: Hemoglobin actually improved. 02/23/23 0938 <Electronically signed by Miroslava Gonzalez MD> Cosigner Signature (if applicable): CC: ~ Signed [facility] Work Phone: [phone]) 788-797704-11-[address] Banks [facility] February 22, 2023 2:54pm Note Date/Time February 22, 2023 8:3 6am [facility] Medical Records Department [address] [place] [id number] Progress Note - Poultry [employer] Manager 02/22/23 0832 MR#: [id number] Acct: [id number] Name: POLI RAMIREZ Rep #:[id number] : 1950 72 From: Serge Banks MD PCP: ARLENE Edmonds Status:ADM I N Location: ICU ICU03-1 Assessment & Plan Assessment/Plan (1) Cardiomyopathy: (2) Acute on chronic respiratory failure with hypoxia and hypercapnia: (3) Anemia: (4) Congestive heart failure (CHF): (5) Pneumonia: (6) Lower extremity edema: (7) Hyperglycemia: (8) Lung nodules: PLAN: Plan RECOMMENDATIONS: 1. Continue cardiac optimization per cardiology 2. Likely complete a 7-day course of antibiotics 3. Increase activity as tolerated 4. Potential BiPAP with sleep pending extubation 5. Electrolyte repletion as indicated 6. Hemodynamically stable on minimal nasal cannula. Will sign off from a pulmonary/critical care perspective 7. Outpatient follow-up for incidental nodules at 3 months IMPRESSIONS: 1. Acute on chronic combined respiratory failure Likely multifactorial. Patient does have a cardiomyopathy with an EF of 10% and appear to be overloaded on presentation. Patient has responded well to a milrinone drip with afterload reduction with lisinopril. Likely okay to reinitiate metoprolol from my perspective. Patient on minimal nasal cannula at this time. Will sign off from a pulmonary/critical care perspective 2. Acute on chronic systolic CHF Patient with a known ejection fraction of 10%. Cardiology is following. Defer to cardiology on discontinuation of milrinone drip, but patient can proceed with extubation from my perspective. Chest CT and ultrasound do not show a large pleural effusion. Patient is not showing findings of acute ischemic changes from a cardiology standpoint. 3. Anemia Unclear etiology. Appears stable. Patient has not had any significant clinical bleeding, but hemoglobin continues to fall. Patient was on IV fluids and these will be discontinued. Okay to check a guaiac of the stool. May require a work-up as an outpatient. 4. Advanced age/hyperglycemia/metabolic encephalopathy/incidental lung nodules Complicates care, management, recovery and prognosis. Blood sugars have been controlled. We will need to follow blood sugars closely given extubation and cessation of tube feeds. Patient will need a follow-up CT scan in 3 months to evaluate for incidental nodules. Subjective Subjective Patient did well overnight. Patient was taken off of milrinone yesterday. Patient is requiring minimal nasal cannula oxygen. No bleeding complications have been reported, but patient did have diarrhea overnight so C. difficile has been sent. Patient is not reporting any abdominal pain. Objective Data Objective Data Vital Signs: Vital Signs Temp Pulse Resp BP Pulse Ox O2 Del Method O2 Flow Rate 36.6 C 91 16 128/61 H 98 Nasal Cannula 1 02/22/23 04:00 02/22/23 04:00 02/22/23 04:00 02/22/23 04:00 02/22/23 04:00 02/22/23 04:00 02/22/23 04:00 FiO2 50 02/21/23 07:00 Oxygen Flow Rate (L/min) 1 Oxygen Delivery Method Nasal Cannula Weight: 85.502 kg Body Mass Index (BMI) 31.4 Intake & Output: Intake and Output for Last 24 Hours 02/20/23 02/21/23 02/22/23 23:59 23:59 23:59 Intake Total 3091.93 / 3238.93 1558.78 / 1558.78 50 / 50 Output Total 3125 / 3125 3705 / 3705 850 / 850 Balance -33.07 / 113.93 -2146.22 / -2146.22 -800 / -800 Lab / Micro Data Attestation: I reviewed the patient's lab results. Result Diagrams: 02/22/23 04:05 02/22/23 04:05 Labs: Laboratory Results - last 24 hr 02/21/23 11:27: POC Glucose 126 H 02/21/23 21:11: POC Glucose 115 H 02/22/23 04:05: WBC 5.8, RBC 3.11 L, Hgb 8.5 L, Hct 30.0 L, MCV 96.5, MCH 27.3, MCHC 28.3 L, RDW Std Deviation 54.6 H, RDW Coeff of Amanda 15.6 H, Plt Count 120 L,MPV 9.0, Immature Gran % (Auto) 0.200, Neut % (Auto) 82.0 H, Lymph % (Auto) 9.4 L, Sevier % (Auto) 6.6, Eos % (Auto) 1.6, Baso % (Auto) 0.2, Absolute Neuts (auto)4.7, Absolute Lymphs (auto) 0.54 L, Nucleated RBC % 0, Differential Comment SCANNED 02/22/23 04:05: Sodium 145, Potassium 3.4 L, Chloride 105, Carbon Dioxide 39.0 H, Anion Gap 1 L, BUN 14, Creatinine 0.86, Estim Creat Clear Calc 52.42, Est GFR (MDRD) Af Amer 83, Est GFR (MDRD) Non-Af 69, BUN/Creatinine Ratio 16.3, Glucose 131 H, Calcium 9.0, Total Bilirubin 1.00, AST 20, ALT 26, Alkaline Phosphatase 83, Total Protein 7.1, Albumin 2.6 L, Globulin 4.5 H, Albumin/Globulin Ratio 0.6L Micro: Microbiology 02/20/23 11:45 Blood Culture (Wb) - Right Hand Blood Culture - Preliminary No growth in 48 hours. 02/22/23 05:40 Stool Stool Occult Blood (TATO) - Final 02/20/23 19:10 Sputum, Induced/Lukens Gram Stain - Final 02/19/23 13:30 Urine Catheter - Barnes Urine Culture - Final Culture exhibits no growth. 02/17/23 22:50 Blood Culture (Wb) - Left Forearm Blood Culture - Preliminary No growth in 48 hours. 02/17/23 22:28 Blood Culture (Wb) - Anticubital Left Blood Culture - Preliminary No growth in 48 hours. 02/18/23 00:35 Sputum, Induced/Lukens Gram Stain - Final 02/18/23 00:35 Sputum, Induced/Lukens Respiratory Culture - Final 02/17/23 22:33 Urine Catheter - Barnes Legionella Antigen - Final 02/17/23 22:33 Urine Catheter - Catheter Streptococcus pneumoniae Antigen (M- Final 02/17/23 22:35 Nasal Secretion SARS-CoV-2 & FLU Antigen (Rapid) - Final Rhythm Strip Rhythm Strip: Sinus Rhythm Rate: 91 Ectopy: None Physical Exam Const alert, oriented x3, no apparent distress and well nourished Constitutional Narrative: No conversational dyspnea. Sitting in the chair eating breakfast without difficulty HEENT normocephalic, head/scalp atraumatic and moist oral mucous membranes Eyes PERRL, EOMs intact bilaterally and conjunctivae normal Eyes Narrative: No scleral icterus Neck no lymphadenopathy, supple, no JVD and no carotid bruits Neck Narrative: Trachea midline Resp normal respiratory effort, no retractions, no use of accessory muscles and clearto auscultation bilaterally Auscultation: Negative for rales, rhonchi or wheezes Cardio regular rate, regular rhythm, S1 normal heart sound, S2 normal heart sound, no murmurs, no rub, no gallops and no clicks GI normal to inspection, nondistended, normoactive bowel sounds, soft to palpation and non-tender Extremity General Extremity: edema; Negative for clubbing Skin no rashes or lesions noted, no wounds, skin turgor normal, no jaundice, no petechiae and no mottling Neuro CN's II-XII intact bilaterally and moves all extremities Neuro Narrative: RASS 0 Psych cooperative and affect normal Charges/Coding Visit Charges Inpatient E&M: 23926 Subs Hosp L2 02/22/23 3840 <Electronically signed by Serge Banks MD> Cosigner Signature (if applicable): CC: ~ Signed [facility] Work Phone: 1(876) 227-319604-11-[address] Gonzalez [facility] February 22, 2023 9:26am Note Date/Time February 22, 2023 9:2 6am [facility] Medical Records Department [address] [place] [address] Progress Note - Cardiology 02/22/23921 MR#: [id number] Acct: [id number] Name: POLI RAMIREZ Rep #:[id number] : 1950 72 From: Miroslava Gonzalez MD PCP: Barber Carlisle [employer] ENGINE MECHANICGiancarlo Status:ADM I N Location: ICU ICU03-1 Subjective Subjective Successfully extubated yesterday. Sitting up in the chair this morning. Deniesany complaints. Objective Data Vital Signs: Vital Signs Temp Pulse Resp BP Pulse Ox O2 Del Method O2 Flow Rate 98 F 91 16 128/61 H 98 Nasal Cannula 1 02/22/23 04:00 02/22/23 04:00 02/22/23 04:00 02/22/23 04:00 02/22/23 04:00 02/22/23 04:00 02/22/23 04:00 FiO2 50 02/21/23 07:00 Oxygen Flow Rate (L/min) 1 Oxygen Delivery Method Nasal Cannula Weight: 188 lb 8 oz Body Mass Index (BMI) 31.4 Intake & Output: Intake and Output for Last 24 Hours 02/20/23 02/21/23 02/22/23 23:59 23:59 23:59 Intake Total 3091.93 / 3238.93 1558.78 / 1558.78 50 / 50 Output Total 3125 / 3125 3705 / 3705 850 / 850 Balance -33.07 / 113.93 -2146.22 / -2146.22 -800 / -800 Lab / Micro Data Attestation: I reviewed the patient's lab results. Result Diagrams: 02/22/23 04:05 02/22/23 04:05 Labs: Laboratory Results - last 24 hr 02/21/23 11:27: POC Glucose 126 H 02/21/23 21:11: POC Glucose 115 H 02/22/23 04:05: WBC 5.8, RBC 3.11 L, Hgb 8.5 L, Hct 30.0 L, MCV 96.5, MCH 27.3, MCHC 28.3 L, RDW Std Deviation 54.6 H, RDW Coeff of Amanda 15.6 H, Plt Count 120 L,MPV 9.0, Immature Gran % (Auto) 0.200, Neut % (Auto) 82.0 H, Lymph % (Auto) 9.4 L, Sevier % (Auto) 6.6, Eos % (Auto) 1.6, Baso % (Auto) 0.2, Absolute Neuts (auto)4.7, Absolute Lymphs (auto) 0.54 L, Nucleated RBC % 0, Differential Comment SCANNED 02/22/23 04:05: Sodium 145, Potassium 3.4 L, Chloride 105, Carbon Dioxide 39.0 H, Anion Gap 1 L, BUN 14, Creatinine 0.86, Estim Creat Clear Calc 52.42, Est GFR (MDRD) Af Amer 83, Est GFR (MDRD) Non-Af 69, BUN/Creatinine Ratio 16.3, Glucose 131 H, Calcium 9.0, Total Bilirubin 1.00, AST 20, ALT 26, Alkaline Phosphatase 83, Total Protein 7.1, Albumin 2.6 L, Globulin 4.5 H, Albumin/Globulin Ratio 0.6L Micro: Microbiology 02/20/23 11:45 Blood Culture (Wb) - Right Hand Blood Culture - Preliminary No growth in 48 hours. 02/22/23 05:40 Stool Stool Occult Blood (TATO) - Final 02/20/23 19:10 Sputum, Induced/Lukens Gram Stain - Final 02/19/23 13:30 Urine Catheter - Barnes Urine Culture - Final Culture exhibits no growth. Rhythm Strip Rhythm Strip: Sinus Rhythm Rate: 91 Ectopy: None Cardiology Labs/Tests 02/22/23 04:05: WBC 5.8, RBC 3.11 L, Hgb 8.5 L, Hct 30.0 L, MCV 96.5, MCH 27.3, MCHC 28.3 L, Plt Count 120 L, MPV 9.0, Immature Gran % (Auto) 0.200, Neut % (Auto) 82.0 H, Lymph % (Auto) 9.4 L, Sevier % (Auto) 6.6, Eos % (Auto) 1.6, Baso %(Auto) 0.2, Absolute Neuts (auto) 4.7, Nucleated RBC % 0 02/22/23 04:05: Sodium 145, Potassium 3.4 L, Chloride 105, Carbon Dioxide 39.0 H, Anion Gap 1 L, BUN 14, Creatinine 0.86, Est GFR (MDRD) Af Amer 83, Est GFR (MDRD) Non-Af 69, BUN/Creatinine Ratio 16.3, Glucose 131 H, Calcium 9.0, Total Bilirubin 1.00 Rhythm: Normal sinus rhythm. EKG: ECHO: Stress Test: Cardiac Cath: PCI: CT Surgery: Holter monitor: EPS: PPM: CXR: Chest CT Scan: Physical Exam Narrative Heart sounds 1 and 2 are noted. Regular rate and rhythm. Chest decreased breath sounds at bases. No ankle edema noted. Assessment & Plan Assessment/Plan (1) Respiratory disorder with ventilator dependence: PLAN: Improved. Successfully weaned off the ventilator. (2) Congestive heart failure (CHF): PLAN: Continue diuresis. Change Lasix to p.o. Introduce low-dose beta-blockers. Increase DARIUSZ inhibitor's as tolerated. Start Aldactone. Start on SGLT2 inhibitors. (3) Cardiomyopathy: PLAN: See #2 above. (4) Pneumonia: PLAN: As per critical care/internal medicine. (5) Anemia: PLAN: Drop in hemoglobin noted. Follow as per critical care. 02/22/23925 <Electronically signed by Miroslava Gonzalez MD> Cosigner Signature (if applicable): CC: ~ Signed [facility] Work Phone: 1(640) 347-470304-11-[address] Jaime [facility] February 22, 2023 8:30am Note Date/Time February 22, 2023 8:3 0am [facility] Medical Records Department [address] [place] [id number] Progress Note - Hospitalist 02/22/2320 MR#: [id number] Acct: [id number] Name: POLI RAMIREZ Rep #:[id number] : 1950 72 From: Pratima Jaime MD PCP: ARLENE Edmonds Status:ADM I N Location: ICU ICU03-1 Reason for Visit Reason for Visit: Diagnoses Anemia, unspecified (02/18/23) Metabolic encephalopathy (02/18/23) Cardiomyopathy, unspecified (02/18/23) Heart failure, unspecified (02/18/23) Pneumonia, unspecified organism (02/18/23) Chronic obstructive pulmonary disease, unspecified (02/18/23) Acute and chronic respiratory failure with hypoxia (02/18/23) Acute and chronic respiratory failure with hypercapnia (02/18/23) Respiratory disorder, unspecified (02/18/23) Localized edema (02/18/23) Hyperglycemia, unspecified (02/18/23) Other nonspecific abnormal finding of lung field (02/18/23) Dependence on respirator [ventilator] status (02/18/23) Subjective Subjective Resting comfortably in bed, did have some GI upset and has C. difficile pending yesterday but had some nausea Going to retry for breakfast today but not nauseated at this time. Has slight cough which she attributes to being intubated but denies problems with her breathing, no other complaints at this time Objective Data Objective Data Vital Signs: Vital Signs Temp Pulse Resp BP Pulse Ox O2 Del Method O2 Flow Rate 98 F 91 16 128/61 H 98 Nasal Cannula 1 02/22/23 04:00 02/22/23 04:00 02/22/23 04:00 02/22/23 04:00 02/22/23 04:00 02/22/23 04:00 02/22/23 04:00 FiO2 50 02/21/23 07:00 Oxygen Flow Rate (L/min) 1 Oxygen Delivery Method Nasal Cannula Weight: 85.502 kg Body Mass Index (BMI) 31.4 Intake & Output: Intake and Output for Last 24 Hours 02/20/23 02/21/23 02/22/23 23:59 23:59 23:59 Intake Total 3091.93 / 3238.93 1558.78 / 1558.78 50 / 50 Output Total 3125 / 3125 3705 / 3705 850 / 850 Balance -33.07 / 113.93 -2146.22 / -2146.22 -800 / -800 Lab / Micro Data Result Diagrams: 02/22/23 04:05 02/22/23 04:05 Labs: Laboratory Results - last 24 hr 02/21/23 11:27: POC Glucose 126 H 02/21/23 21:11: POC Glucose 115 H 02/22/23 04:05: WBC 5.8, RBC 3.11 L, Hgb 8.5 L, Hct 30.0 L, MCV 96.5, MCH 27.3, MCHC 28.3 L, RDW Std Deviation 54.6 H, RDW Coeff of Amanda 15.6 H, Plt Count 120 L,MPV 9.0, Immature Gran % (Auto) 0.200, Neut % (Auto) 82.0 H, Lymph % (Auto) 9.4 L, Sevier % (Auto) 6.6, Eos % (Auto) 1.6, Baso % (Auto) 0.2, Absolute Neuts (auto)4.7, Absolute Lymphs (auto) 0.54 L, Nucleated RBC % 0, Differential Comment SCANNED 02/22/23 04:05: Sodium 145, Potassium 3.4 L, Chloride 105, Carbon Dioxide 39.0 H, Anion Gap 1 L, BUN 14, Creatinine 0.86, Estim Creat Clear Calc 52.42, Est GFR (MDRD) Af Amer 83, Est GFR (MDRD) Non-Af 69, BUN/Creatinine Ratio 16.3, Glucose 131 H, Calcium 9.0, Total Bilirubin 1.00, AST 20, ALT 26, Alkaline Phosphatase 83, Total Protein 7.1, Albumin 2.6 L, Globulin 4.5 H, Albumin/Globulin Ratio 0.6L Micro: Microbiology 02/20/23 11:45 Blood Culture (Wb) - Right Hand Blood Culture - Preliminary No growth in 48 hours. 02/22/23 05:40 Stool Stool Occult Blood (TATO) - Final 02/20/23 19:10 Sputum, Induced/Lukens Gram Stain - Final 02/19/23 13:30 Urine Catheter - Barnes Urine Culture - Final Culture exhibits no growth. 02/17/23 22:50 Blood Culture (Wb) - Left Forearm Blood Culture - Preliminary No growth in 48 hours. 02/17/23 22:28 Blood Culture (Wb) - Anticubital Left Blood Culture - Preliminary No growth in 48 hours. 02/18/23 00:35 Sputum, Induced/Lukens Gram Stain - Final 02/18/23 00:35 Sputum, Induced/Lukens Respiratory Culture - Final 02/17/23 22:33 Urine Catheter - Barnes Legionella Antigen - Final 02/17/23 22:33 Urine Catheter - Catheter Streptococcus pneumoniae Antigen (M- Final 02/17/23 22:35 Nasal Secretion SARS-CoV-2 & FLU Antigen (Rapid) - Final Rhythm Strip Rhythm Strip: Sinus Rhythm Rate: 95 Ectopy: None Physical Exam Narrative General: Awake, alert, no acute distress HEENT: Atraumatic, normocephalic Eyes: Anicteric, normal conjunctiva, extraocular movements grossly intact Neck: Supple Respiratory: Clear to auscultation bilaterally, normal respiratory effort Cardiovascular: Regular rate and rhythm GI: Soft, nontender, nondistended Extremities: No significant edema Musculoskeletal: Moving all extremities Neuro: No overt focal neurological deficits Skin: No rashes appreciated Psych: Cooperative Assessment & Plan Assessment/Plan (1) Cardiomyopathy: (2) Acute on chronic respiratory failure with hypoxia and hypercapnia: (3) Anemia: (4) Congestive heart failure (CHF): (5) Pneumonia: (6) Lower extremity edema: (7) Hyperglycemia: (8) Lung nodules: PLAN: Plan #Acute on chronic hypoxic hypercapnic resp failure 2/2 PNA and acute HFrEF -Intubated on arrival -Improved, extubated 02/21/23 -Remains on vancomycin and Zosyn -Awaiting cultures -On scheduled nebs -02/22: Extubated and doing well, will transfer to PCU. Continued on diuresis. Milrinone discontinued. Bicarb increasing, unsure if this is due to volume contraction given diuresis or CO2 retention now that she is extubated, will obtain ABG. If retaining CO2 may need BiPAP nightly and as needed or if all dueto volume contraction may need to de-escalate Lasix. Continue nebs #Diarrhea -C. difficile pending, had some nausea yesterday but improved today. Going to attempt to eat breakfast #Acute HFrEF -Echo w/ EF 10% with severely dilated left ventricle and severe global left ventricular systolic dysfunction. -Cardiology following -Remains on milrinone. Date this evening, management per cardiology -Continuing diuresis -02/22: Started on 2.5 mg of lisinopril, is presently on 20 mg IV every 8 of Lasix, no increase in BUN and creatinine stable at this time, has had significant weight loss from 90.7 kg documented yesterday to 85.5 kg today. Hasfluid balance of -3 L. Can consider de-escalation and Lasix as patient has improved does not appear to be significantly overloaded at this time and additionally all cell lines in CBC increased and bicarb increased to 39 #Type 2 diabetes mellitus -Glucose checks and sliding scale insulin -Home oral hypoglycemics held #Chronic anemia/thrombocytopenia -Transfuse if hemoglobin falls below 7 -Hemoglobin has been downtrending but no overt bleeding noted, possibly delusional given her IV fluids -We will check FOBT -02/22: Hemoglobin up to 8.5 today, still no signs symptoms of bleeding and FOBT negative #Cervical spine fracture of sixth and seventh cervical vertebrae -Pt/OT -Was reason for her nursing facility placement #1.3 cm asymmetric density in the anterior left breast -Needs oupt diagnostic mammogram #Incidental lung nodules -Patient will need a follow-up CT scan in 3 months to evaluate for incidental nodules #DVT ppx: Lovenox subcu Pratima Jaime MD Time spent in the patient's overall evaluation,decision-making process, review of diagnostic data, adjustment of management, discussion with other providers, nursing nursing and ancillary staff involved in patient's care documentation, 30minutes Charges/Coding Visit Charges Inpatient E&M: 46261 Subs Hosp L2 02/22/23 0830 <Electronically signed by Pratima Jaime MD> Cosigner Signature (if applicable): CC: ~ Signed [facility] Work Phone: [phone]) 143-508604-10-[address] Jaime [facility] February 21, 2023 4:59pm Note Date/Time February 21, 2023 7:0 7am [facility] Medical Records Department [address] [place] [address] Progress Note - Hospitalist 02/21/23706 MR#: [id number] Acct: [id number] Name: POLI RAMIREZ Rep #:[id number] : 1950 72 From: Pratima Jaime MD PCP: ARLENE Edmonds Status:ADM I N Location: ICU ICU03-1 Reason for Visit Reason for Visit: Diagnoses Anemia, unspecified (02/18/23) Metabolic encephalopathy (02/18/23) Cardiomyopathy, unspecified (02/18/23) Heart failure, unspecified (02/18/23) Pneumonia, unspecified organism (02/18/23) Chronic obstructive pulmonary disease, unspecified (02/18/23) Acute and chronic respiratory failure with hypoxia (02/18/23) Acute and chronic respiratory failure with hypercapnia (02/18/23) Respiratory disorder, unspecified (02/18/23) Localized edema (02/18/23) Hyperglycemia, unspecified (02/18/23) Other nonspecific abnormal finding of lung field (02/18/23) Dependence on respirator [ventilator] status (02/18/23) Subjective Subjective Extubated this a.m., denies cough or problems with her breathing, tired at this time but no other complaints Objective Data Objective Data Vital Signs: Vital Signs Temp Pulse Resp BP Pulse Ox O2 Del Method O2 Flow Rate 98.8 F 88 23 H 96/57 L 98 Mechanical Ventilator 2 02/21/23 04:00 02/21/23 07:00 02/21/23 07:00 02/21/23 07:00 02/21/23 07:00 02/21/23 07:00 02/21/23 01:00 FiO2 50 02/21/23 07:00 Oxygen Flow Rate (L/min) 2 Oxygen Delivery Method Mechanical Ventilator Weight: 90.7 kg Body Mass Index (BMI) 33.3 Intake & Output: Intake and Output for Last 24 Hours 02/19/23 02/20/23 02/21/23 23:59 23:59 23:59 Intake Total 1929.82 / 2036.72 3091.93 / 3238.93 1060.33 / 1060.33 Output Total 1525 / 1825 3125 / 3125 850 / 850 Balance 404.82 / 211.72 -33.07 / 113.93 210.33 / 210.33 Lab / Micro Data Result Diagrams: 02/21/23 03:10 02/21/23 03:10 Labs: Laboratory Results - last 24 hr 02/20/23 11:45: Total Creatine Kinase 26, Triglycerides 141 02/20/23 12:48: POC Glucose 160 H 02/20/23 14:05: Sodium 144, Potassium 3.2 L, Chloride 106, Carbon Dioxide 35.0 H, Anion Gap 3 L, BUN 19 H, Creatinine 0.86, Estim Creat Clear Calc 52.42, Est GFR (MDRD) Af Amer 83, Est GFR (MDRD) Non-Af 69, BUN/Creatinine Ratio 22.0 H, Glucose 172 H, Calcium 8.1 L 02/20/23 18:54: POC Glucose 166 H 02/21/23 00:04: POC Glucose 178 H 02/21/23 03:10: WBC 4.2 L, RBC 2.55 L, Hgb 7.1 L, Hct 24.2 L, MCV 94.9, MCH 27.8, MCHC 29.3 L, RDW Std Deviation 54.2 H, RDW Coeff of Amanda 15.8 H, Plt Count 102 L, MPV 9.8, Immature Gran % (Auto) 0.700, Neut % (Auto) 79.0 H, Lymph % (Auto) 14.1 L, Sevier % (Auto) 5.3, Eos % (Auto) 0.7, Baso % (Auto) 0.2, Absolute Neuts (auto) 3.3, Absolute Lymphs (auto) 0.59 L, Nucleated RBC % 0, DifferentialComment COMMENT, Diff Path Review March, Platelet Estimate SLT 02/21/23 03:10: Sodium 145, Potassium 3.2 L, Chloride 107, Carbon Dioxide 36.0 H, Anion Gap 2 L, BUN 17, Creatinine 0.93, Estim Creat Clear Calc 48.48, Est GFR (MDRD) Af Amer 76, Est GFR (MDRD) Non-Af 63, BUN/Creatinine Ratio 18.3, Glucose 190 H, Calcium 7.9 L, Total Bilirubin 0.80, AST 21, ALT 24, Alkaline [id number], Total Protein 5.6 L, Albumin 2.2 L, Globulin 3.4, Albumin/Globulin Ratio 0.6L 02/21/23 03:10: Vancomycin Trough 25.5 H Micro: Microbiology 02/17/23 22:50 Blood Culture (Wb) - Left Forearm Blood Culture - Preliminary No growth in 48 hours. 02/17/23 22:28 Blood Culture (Wb) - Anticubital Left Blood Culture - Preliminary No growth in 48 hours. 02/19/23 13:30 Urine Catheter - Barnes Urine Culture - Preliminary Culture exhibits no growth. 02/18/23 00:35 Sputum, Induced/Lukens Gram Stain - Final 02/18/23 00:35 Sputum, Induced/Lukens Respiratory Culture - Final 02/17/23 22:33 Urine Catheter - Barnes Legionella Antigen - Final 02/17/23 22:33 Urine Catheter - Catheter Streptococcus pneumoniae Antigen (M- Final 02/17/23 22:35 Nasal Secretion SARS-CoV-2 & FLU Antigen (Rapid) - Final ABG Data ABG results: ABG 02/20/23 02/20/23 11:07 13:48 Specimen Type ART ART Sample Site R Radial R Radial pH 7.54 H 7.49 H Bicarbonate Actual 36.8 H 36.7 H Total CO2 38 38 Base Excess 14 H 13 H O2 Saturation 98 98 O2 % 50 50 ABG pCO2 42.9 48.2 H ABG pO2 87 92 Jovon Test Positive Positive Respiration Rate 15 15 O2 Delivery Device Adult Vent Adult Vent Vent Mode AC/PC AC/PC POC PEEP 7 7 POC Pressure Suppt 13 11 Radiography Diagnostic Testing: Radiology Impression Venous Doppler Study 02/18/23 01:42 Interpretation Summary Deep veins of the bilateral lower extremities are patent and compressible segmentally. There is no evidence of bilateral lower extremity deep vein thrombosis. The bilateral great saphenous veins appear patent and compressible segmentally. Ordering Physician: Rebecca Resendiz Referring Physician: Barber Carlisle Performed By: Fabi Delacruz, MARC, RVT Rhythm Strip Rhythm Strip: Sinus Rhythm Rate: 95 Ectopy: None Physical Exam Narrative General: Slightly tired but awake and does not fall asleep during conversation HEENT: Atraumatic, normocephalic Eyes: Anicteric, normal conjunctiva, extraocular movements grossly intact Neck: Supple Respiratory: Clear to auscultation bilaterally, normal respiratory effort Cardiovascular: Regular rate and rhythm GI: Soft, nontender, nondistended Extremities: No edema Musculoskeletal: Moving all extremities Neuro: No overt focal neurological deficits Skin: No rashes appreciated Psych: Cooperative Assessment & Plan Assessment/Plan (1) Cardiomyopathy: (2) Acute on chronic respiratory failure with hypoxia and hypercapnia: (3) Anemia: (4) Congestive heart failure (CHF): (5) Pneumonia: (6) Lower extremity edema: (7) Hyperglycemia: (8) Lung nodules: PLAN: Plan #Acute on chronic hypoxic hypercapnic resp failure 2/2 PNA and acute HFrEF -Intubated on arrival -Improved, extubated 02/21/23 -Remains on vancomycin and Zosyn -Awaiting cultures -On scheduled nebs #Acute HFrEF -Echo w/ EF 10% with severely dilated left ventricle and severe global left ventricular systolic dysfunction. -Cardiology following -Remains on milrinone. Date this evening, management per cardiology -Continuing diuresis #Type 2 diabetes mellitus -Glucose checks and sliding scale insulin -Home oral hypoglycemics held #Chronic anemia/thrombocytopenia -Transfuse if hemoglobin falls below 7 -Hemoglobin has been downtrending but no overt bleeding noted, possibly delusional given her IV fluids -We will check FOBT #Cervical spine fracture of sixth and seventh cervical vertebrae -Pt/OT -Was reason for her nursing facility placement #1.3 cm asymmetric density in the anterior left breast -Needs oupt diagnostic mammogram #Incidental lung nodules -Patient will need a follow-up CT scan in 3 months to evaluate for incidental nodules #DVT ppx: Lovenox subcu Pratima Jaime MD Time spent in the patient's overall evaluation,decision-making process, review of diagnostic data, adjustment of management, discussion with other providers, nursing nursing and ancillary staff involved in patient's care documentation, 30minutes Charges/Coding Visit Charges Inpatient E&M: 28271 Subs Hosp L2 02/21/239 <Electronically signed by Pratima Jaime MD> Cosigner Signature (if applicable): CC: ~ Signed [facility] Work Phone: 1(766) 216-505804-10-[address] Banks [facility] February 21, 2023 4:00pm Note Date/Time February 21, 2023 8:0 3am [facility] Medical Records Department [address] [place] [address] Progress Note - Poultry [employer] Manager 02/21/23 0752 MR#: [id number] Acct: [id number] Name: POLI RAMIREZ Rep #:[id number] : 1950 72 From: Serge Banks MD PCP: ARLENE Edmonds Status:ADM I N Location: ICU ICU03-1 Assessment & Plan Assessment/Plan (1) Cardiomyopathy: (2) Acute on chronic respiratory failure with hypoxia and hypercapnia: (3) Anemia: (4) Congestive heart failure (CHF): (5) Pneumonia: (6) Lower extremity edema: (7) Hyperglycemia: (8) Lung nodules: PLAN: Plan RECOMMENDATIONS: 1. Proceed with extubation 2. Okay to continue diuresis 3. Defer to cardiology on discontinuation of milrinone 4. Potential BiPAP with sleep pending extubation 5. Electrolyte repletion as indicated 6. Potential transfusion if hemoglobin continues to fall 7. Discontinue IV fluids 8. Continue empiric antibiotics given fever yesterday 9. Outpatient follow-up for incidental nodules at 3 months IMPRESSIONS: 1. Acute on chronic combined respiratory failure Likely multifactorial. Patient does have a cardiomyopathy with an EF of 10% and appear to be overloaded on presentation. Patient has responded well to a milrinone drip with afterload reduction with lisinopril. Potentially reinitiate metoprolol in the future. Patient was able to pass a spontaneous breathing trial this morning, so will be extubated. Patient may require BiPAP with sleep to avoid future complications. We will continue with empiric bronchodilator therapy. There is some concern for concomitant pneumonia as patient had bilateral infiltrates on chest x-ray. Patient is on Zosyn and vancomycin. We will continue these for now given patient's fever yesterday. Await cultures. 2. Acute on chronic systolic CHF Patient with a known ejection fraction of 10%. Cardiology is following. Defer to cardiology on discontinuation of milrinone drip, but patient can proceed with extubation from my perspective. Chest CT and ultrasound do not show a large pleural effusion. Patient is not showing findings of acute ischemic changes from a cardiology standpoint. 3. Anemia Unclear etiology. Patient has not had any significant clinical bleeding, but hemoglobin continues to fall. Patient was on IV fluids and these will be discontinued. Patient has received some diuretics also. Okay to check a guaiacof the stool. May require a work-up as an outpatient. 4. Advanced age/hyperglycemia/metabolic encephalopathy/incidental lung nodules Complicates care, management, recovery and prognosis. Blood sugars have been controlled. We will need to follow blood sugars closely given extubation and cessation of tube feeds. Patient will need a follow-up CT scan in 3 months to evaluate for incidental nodules. TIME: 35 minutes critical care time spent addressing patient's respiratory failure,CHF, anemia, review of all data and collaboration with care team Subjective Subjective Patient did okay overnight. Patient was able to be placed on a spontaneous awakening and breathing trial this morning. Patient does remain on milrinone and is tolerating this well. Patient is not reporting any pain. Patient was able to tolerate a spontaneous breathing trial for over an hour with no issues. Objective Data Objective Data Patient reportedly has had a cuff leak overnight requiring additional air to be added multiple times. Vital Signs: Vital Signs Temp Pulse Resp BP Pulse Ox O2 Del Method O2 Flow Rate 37.1 C 88 23 H 96/57 L 98 Mechanical Ventilator 2 02/21/23 04:00 02/21/23 07:00 02/21/23 07:00 02/21/23 07:00 02/21/23 07:00 02/21/23 07:00 02/21/23 01:00 FiO2 50 02/21/23 07:00 Oxygen Flow Rate (L/min) 2 Oxygen Delivery Method Mechanical Ventilator Weight: 90.7 kg Body Mass Index (BMI) 33.3 Intake & Output: Intake and Output for Last 24 Hours 02/19/23 02/20/23 02/21/23 23:59 23:59 23:59 Intake Total 1929.82 / 2036.72 3091.93 / 3238.93 1060.33 / 1060.33 Output Total 1525 / 1825 3125 / 3125 850 / 850 Balance 404.82 / 211.72 -33.07 / 113.93 210.33 / 210.33 Lab / Micro Data Attestation: I reviewed the patient's lab results. Result Diagrams: 02/21/23 03:10 02/21/23 03:10 Labs: Laboratory Results - last 24 hr 02/20/23 11:45: Total Creatine Kinase 26, Triglycerides 141 02/20/23 12:48: POC Glucose 160 H 02/20/23 14:05: Sodium 144, Potassium 3.2 L, Chloride 106, Carbon Dioxide 35.0 H, Anion Gap 3 L, BUN 19 H, Creatinine 0.86, Estim Creat Clear Calc 52.42, Est GFR (MDRD) Af Amer 83, Est GFR (MDRD) Non-Af 69, BUN/Creatinine Ratio 22.0 H, Glucose 172 H, Calcium 8.1 L 02/20/23 18:54: POC Glucose 166 H 02/21/23 00:04: POC Glucose 178 H 02/21/23 03:10: WBC 4.2 L, RBC 2.55 L, Hgb 7.1 L, Hct 24.2 L, MCV 94.9, MCH 27.8, MCHC 29.3 L, RDW Std Deviation 54.2 H, RDW Coeff of Amanda 15.8 H, Plt Count 102 L, MPV 9.8, Immature Gran % (Auto) 0.700, Neut % (Auto) 79.0 H, Lymph % (Auto) 14.1 L, Sevier % (Auto) 5.3, Eos % (Auto) 0.7, Baso % (Auto) 0.2, Absolute Neuts (auto) 3.3, Absolute Lymphs (auto) 0.59 L, Nucleated RBC % 0, DifferentialComment COMMENT, Diff Path Review March, Platelet Estimate SLT 02/21/23 03:10: Sodium 145, Potassium 3.2 L, Chloride 107, Carbon Dioxide 36.0 H, Anion Gap 2 L, BUN 17, Creatinine 0.93, Estim Creat Clear Calc 48.48, Est GFR (MDRD) Af Amer 76, Est GFR (MDRD) Non-Af 63, BUN/Creatinine Ratio 18.3, Glucose 190 H, Calcium 7.9 L, Total Bilirubin 0.80, AST 21, ALT 24, Alkaline [id number], Total Protein 5.6 L, Albumin 2.2 L, Globulin 3.4, Albumin/Globulin Ratio 0.6L 02/21/23 03:10: Vancomycin Trough 25.5 H Micro: Microbiology 02/17/23 22:50 Blood Culture (Wb) - Left Forearm Blood Culture - Preliminary No growth in 48 hours. 02/17/23 22:28 Blood Culture (Wb) - Anticubital Left Blood Culture - Preliminary No growth in 48 hours. 02/19/23 13:30 Urine Catheter - Barnes Urine Culture - Preliminary Culture exhibits no growth. 02/18/23 00:35 Sputum, Induced/Lukens Gram Stain - Final 02/18/23 00:35 Sputum, Induced/Lukens Respiratory Culture - Final 02/17/23 22:33 Urine Catheter - Barnes Legionella Antigen - Final 02/17/23 22:33 Urine Catheter - Catheter Streptococcus pneumoniae Antigen (M- Final 02/17/23 22:35 Nasal Secretion SARS-CoV-2 & FLU Antigen (Rapid) - Final ABG Data ABG results: ABG 02/20/23 02/20/23 02/21/23 11:07 13:48 07:29 Specimen Type ART ART ART Sample Site R Radial R Radial R Brach pH 7.54 H 7.49 H 7.45 Bicarbonate Actual 36.8 H 36.7 H 36.1 H Total CO2 38 38 38 Base Excess 14 H 13 H 12 H O2 Saturation 98 98 98 O2 % 50 50 50 ABG pCO2 42.9 48.2 H 52.0 H ABG pO2 87 92 99 Jovon Test Positive Positive Respiration Rate 15 15 O2 Delivery Device Adult Vent Adult Vent Vent Mode AC/PC AC/PC CPAP/PS POC PEEP 7 7 7 POC Pressure Suppt 13 11 7 Radiography Diagnostic Testing: Radiology Impression Venous Doppler Study 02/18/23 01:42 Interpretation Summary Deep veins of the bilateral lower extremities are patent and compressible segmentally. There is no evidence of bilateral lower extremity deep vein thrombosis. The bilateral great saphenous veins appear patent and compressible segmentally. Ordering Physician: Rebecca Resendiz Referring Physician: Barber Carlisle Performed By: Fabi Delacruz, MARC, RVT Rhythm Strip Rhythm Strip: Sinus Rhythm Rate: 95 Ectopy: None Physical Exam Const no apparent distress and well nourished Constitutional Narrative: Intubated, but interacting appropriately on spontaneous breathing trial. HEENT normocephalic, head/scalp atraumatic and moist oral mucous membranes HEENT Narrative: ET/OG tube in place Eyes PERRL, EOMs intact bilaterally and conjunctivae normal Eyes Narrative: No scleral icterus Neck no lymphadenopathy, supple, no JVD and no carotid bruits Neck Narrative: Trachea midline Resp normal respiratory effort, no retractions, no use of accessory muscles and clearto auscultation bilaterally Auscultation: Negative for rales, rhonchi or wheezes Cardio regular rate, regular rhythm, S1 normal heart sound, S2 normal heart sound, no murmurs, no rub, no gallops and no clicks GI normal to inspection, nondistended, normoactive bowel sounds, soft to palpation and non-tender Extremity General Extremity: edema; Negative for clubbing Skin no rashes or lesions noted, no wounds, skin turgor normal, no jaundice, no petechiae and no mottling Neuro CN's II-XII intact bilaterally and moves all extremities Neuro Narrative: RASS 0 Psych cooperative and affect normal Charges/Coding Procedures Hospitalists Procedures: [id number] Critial Care 1st Hr 02/21/23 1600 <Electronically signed by Serge Banks MD> Cosigner Signature (if applicable): CC: ~ Signed [facility] Work Phone: 1(231) 293-897504-10-[address] Gonzalez [facility] February 21, 2023 9:54am Note Date/Time February 21, 2023 9:5 4am [facility] Medical Records Department [address] [place] [id number] Progress Note - Cardiology 02/21/23 0951 MR#: [id number] Acct: [id number] Name: POLI RAMIREZ Rep #:[id number] : 1950 72 From: Miroslava Gonzalez MD PCP: ARLENE Edmonds Status:ADM I N Location: ICU ICU03-1 Subjective Subjective In the process of getting weaned off the ventilator. Tolerating spontaneous breathing trial well this morning. Objective Data Vital Signs: Vital Signs Temp Pulse Resp BP Pulse Ox O2 Del Method O2 Flow Rate 98.6 F 88 18 99/59 L 96 Nasal Cannula 2 02/21/23 09:00 02/21/23 09:00 02/21/23 09:00 02/21/23 09:00 02/21/23 09:37 02/21/23 09:37 02/21/23 09:37 FiO2 50 02/21/23 07:00 Oxygen Flow Rate (L/min) 2 Oxygen Delivery Method Nasal Cannula Weight: 199 lb 15.348 oz Body Mass Index (BMI) 33.3 Intake & Output: Intake and Output for Last 24 Hours 02/19/23 02/20/23 02/21/23 23:59 23:59 23:59 Intake Total 1929.82 / 2036.72 3091.93 / 3238.93 1121.83 / 1121.83 Output Total 1525 / 1825 3125 / 3125 850 / 850 Balance 404.82 / 211.72 -33.07 / 113.93 271.83 / 271.83 Lab / Micro Data Result Diagrams: 02/21/23 03:10 02/21/23 03:10 Labs: Laboratory Results - last 24 hr 02/20/23 11:45: Total Creatine Kinase 26, Triglycerides 141 02/20/23 12:48: POC Glucose 160 H 02/20/23 14:05: Sodium 144, Potassium 3.2 L, Chloride 106, Carbon Dioxide 35.0 H, Anion Gap 3 L, BUN 19 H, Creatinine 0.86, Estim Creat Clear Calc 52.42, Est GFR (MDRD) Af Amer 83, Est GFR (MDRD) Non-Af 69, BUN/Creatinine Ratio 22.0 H, Glucose 172 H, Calcium 8.1 L 02/20/23 18:54: POC Glucose 166 H 02/21/23 00:04: POC Glucose 178 H 02/21/23 03:10: WBC 4.2 L, RBC 2.55 L, Hgb 7.1 L, Hct 24.2 L, MCV 94.9, MCH 27.8, MCHC 29.3 L, RDW Std Deviation 54.2 H, RDW Coeff of Amanda 15.8 H, Plt Count 102 L, MPV 9.8, Immature Gran % (Auto) 0.700, Neut % (Auto) 79.0 H, Lymph % (Auto) 14.1 L, Sevier % (Auto) 5.3, Eos % (Auto) 0.7, Baso % (Auto) 0.2, Absolute Neuts (auto) 3.3, Absolute Lymphs (auto) 0.59 L, Nucleated RBC % 0, DifferentialComment COMMENT, Diff Path Review Uyen menchaca, Platelet Estimate SLT 02/21/23 03:10: Sodium 145, Potassium 3.2 L, Chloride 107, Carbon Dioxide 36.0 H, Anion Gap 2 L, BUN 17, Creatinine 0.93, Estim Creat Clear Calc 48.48, Est GFR (MDRD) Af Amer 76, Est GFR (MDRD) Non-Af 63, BUN/Creatinine Ratio 18.3, Glucose 190 H, Calcium 7.9 L, Total Bilirubin 0.80, AST 21, ALT 24, Alkaline [id number], Total Protein 5.6 L, Albumin 2.2 L, Globulin 3.4, Albumin/Globulin Ratio 0.6L 02/21/23 03:10: Vancomycin Trough 25.5 H Micro: Microbiology 02/19/23 13:30 Urine Catheter - Barnes Urine Culture - Final Culture exhibits no growth. 02/17/23 22:50 Blood Culture (Wb) - Left Forearm Blood Culture - Preliminary No growth in 48 hours. 02/17/23 22:28 Blood Culture (Wb) - Anticubital Left Blood Culture - Preliminary No growth in 48 hours. 02/18/23 00:35 Sputum, Induced/Lukens Gram Stain - Final 02/18/23 00:35 Sputum, Induced/Lukens Respiratory Culture - Final ABG Data ABG results: ABG 02/20/23 02/20/23 02/21/23 11:07 13:48 07:29 Specimen Type ART ART ART Sample Site R Radial R Radial R Brach pH 7.54 H 7.49 H 7.45 Bicarbonate Actual 36.8 H 36.7 H 36.1 H Total CO2 38 38 38 Base Excess 14 H 13 H 12 H O2 Saturation 98 98 98 O2 % 50 50 50 ABG pCO2 42.9 48.2 H 52.0 H ABG pO2 87 92 99 Jovon Test Positive Positive Respiration Rate 15 15 O2 Delivery Device Adult Vent Adult Vent Vent Mode AC/PC AC/PC CPAP/PS POC PEEP 7 7 7 POC Pressure Suppt 13 11 7 Rhythm Strip Rhythm Strip: Sinus Rhythm Rate: 95 Ectopy: None Cardiology Labs/Tests 02/20/23 11:07: pH 7.54 H, Bicarbonate Actual 36.8 H, Base Excess 14 H, O2 Saturation 98, ABG pCO2 42.9, ABG pO2 87, Jovon Test Positive 02/20/23 11:45: Triglycerides 141 02/20/23 13:48: pH 7.49 H, Bicarbonate Actual 36.7 H, Base Excess 13 H, O2 Saturation 98, ABG pCO2 48.2 H, ABG pO2 92, Jovon Test Positive 02/20/23 14:05: Sodium 144, Potassium 3.2 L, Chloride 106, Carbon Dioxide 35.0 H, Anion Gap 3 L, BUN 19 H, Creatinine 0.86, Est GFR (MDRD) Af Amer 83, Est GFR (MDRD) Non-Af 69, BUN/Creatinine Ratio 22.0 H, Glucose 172 H, Calcium 8.1 L 02/21/23 03:10: WBC 4.2 L, RBC 2.55 L, Hgb 7.1 L, Hct 24.2 L, MCV 94.9, MCH 27.8, MCHC 29.3 L, Plt Count 102 L, MPV 9.8, Immature Gran % (Auto) 0.700, Neut % (Auto) 79.0 H, Lymph % (Auto) 14.1 L, Sevier % (Auto) 5.3, Eos % (Auto) 0.7, Baso % (Auto) 0.2, Absolute Neuts (auto) 3.3, Nucleated RBC % 0 02/21/23 03:10: Sodium 145, Potassium 3.2 L, Chloride 107, Carbon Dioxide 36.0 H, Anion Gap 2 L, BUN 17, Creatinine 0.93, Est GFR (MDRD) Af Amer 76, Est GFR (MDRD) Non-Af 63, BUN/Creatinine Ratio 18.3, Glucose 190 H, Calcium 7.9 L, TotalBilirubin 0.80 02/21/23 07:29: pH 7.45, Bicarbonate Actual 36.1 H, Base Excess 12 H, O2 Saturation 98, ABG pCO2 52.0 H, ABG pO2 99 Rhythm: EKG: ECHO: Stress Test: Cardiac Cath: PCI: CT Surgery: Holter monitor: EPS: PPM: CXR: Chest CT Scan: Radiography Diagnostic Testing: Radiology Impression Venous Doppler Study 02/18/23 01:42 Interpretation Summary Deep veins of the bilateral lower extremities are patent and compressible segmentally. There is no evidence of bilateral lower extremity deep vein thrombosis. The bilateral great saphenous veins appear patent and compressible segmentally. Ordering Physician: Rebecca Resendiz Referring Physician: Barber Carlisle Performed By: Fabi Delacruz, RDCS, RVT Physical Exam Narrative Intubated. Sedated on vent. Heart sounds 1 and 2 are noted. Chest decreased air entry at bases. Abdomen soft. 2+ bilateral ankle edema noted. Assessment & Plan Assessment/Plan (1) Respiratory disorder with ventilator dependence: PLAN: Combination of congestive heart failure and pneumonia. (2) Congestive heart failure (CHF): PLAN: Continue diuresis. We will plan on stopping milrinone infusion after extubation. (3) Cardiomyopathy: PLAN: Start low-dose DARIUSZ inhibitors. (4) Pneumonia: PLAN: As per critical care/internal medicine. (5) Anemia: PLAN: Drop in hemoglobin noted. Follow as per critical care. 02/21/2354 <Electronically signed by Miroslava Gonzalez MD> Cosigner Signature (if applicable): CC: ~ Signed [facility] Work Phone: [phone]) [phone] Consult note Author Armani Napier [facility] February 21, 2023 4:07am Note Date/Time February 21, 2023 4:0 7am [facility] Medical Records Department [address] [place] [address] Pharmacokinetic/Renal -Consult 02/21/23 0406 MR#: [id number] Acct: [id number] Name: POLI RAMIREZ Rep #:[id number] : 1950 72 From: Armani Valdez od PCP: ARLENE Edmonds Status:ADM I N Y Location: ICU ICU03-1 Consult Pharmacy has been consulted to manage selected antiobiotic: Vancomycin Type of Consult: Follow-up Labs: Sodium 145 mmol/L (136-145) 02/21/23 03:10 Potassium 3.2 mmol/L (3.5-5.1) L 02/21/23 03:10 Chloride 107 mmol/L (98-107) 02/21/23 03:10 Carbon Dioxide 36.0 mmol/L (21.0-32.0) H 02/21/23 03:10 Anion Gap 2 (5-15) L 02/21/23 03:10 BUN 17 mg/dL (7-18) 02/21/23 03:10 Creatinine 0.93 mg/dL (0.55-1.02) 02/21/23 03:10 Est GFR (MDRD) Af Amer 76 mL/min (>60) 02/21/23 03:10 Est GFR (MDRD) Non-Af 63 mL/min (>60) 02/21/23 03:10 BUN/Creatinine Ratio 18.3 RATIO (10-20) 02/21/23 03:10 Glucose 190 mg/dL (74-106) H 02/21/23 03:10 Vancomycin Trough 25.5 ug/mL (5.0-15.0) H 02/21/23 03:10 Microbiology: Microbiology 02/17/23 22:50 Blood Culture (Wb) - Left Forearm Blood Culture - Preliminary No growth in 48 hours. 02/17/23 22:28 Blood Culture (Wb) - Anticubital Left Blood Culture - Preliminary No growth in 48 hours. 02/19/23 13:30 Urine Catheter - Barnes Urine Culture - Preliminary Culture exhibits no growth. 02/18/23 00:35 Sputum, Induced/Lukens Gram Stain - Final 02/18/23 00:35 Sputum, Induced/Lukens Respiratory Culture - Final 02/17/23 22:33 Urine Catheter - Barnes Legionella Antigen - Final 02/17/23 22:33 Urine Catheter - Catheter Streptococcus pneumoniae Antigen (M- Final 02/17/23 22:35 Nasal Secretion SARS-CoV-2 & FLU Antigen (Rapid) - Final Goal Trough: 15-20 mcg/mL Pharmacy Plan for Drug Dosing: Pharmacy Service will continue to monitor and adjust dosing as required. TROUGH 25.5 @ 11HRS. HOLD CURRENT DOSE AND DRAW RANDOM LEVEL IN 12 HOURS Follow-Up Labs: Trough Vancomycin Labs to be done on [date and time ordered]: 02/21 @ 1530 02/21/23 0407 <Electronically signed by Armani bolaños > Date _ Armani Napier Cosigner Signature (if applicable): Date CC: ~ Signed [facility] Work Phone: 1(366) [phone] 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 02/20/23 1634 MR#: [id number] Acct: [id number] Name: POLI RAMIREZ Rep #:[id number] : 1950 72 From: Martín Monique MD PCP: ARLENE Edmonds Status:ADM I N Location: ICU ICU03-1 Assessment & Plan Assessment/Plan (1) Cardiomyopathy: PLAN: Based on the patient's clinical course, lab findings including no active infection, and the fact that she has failed multiple weaning trials due to weakness, which in turn is likely due to her ejection fraction of 10%, I think that it is likely that her initial presentation was probably due to bibasilar lung atelectasis due to weakness which she could not compensate for and developed respiratory failure. Her prognosis is guarded unless her ejection fraction improves. Cardiology consultation is appreciated, and Dr. Gonzalez is planning the following - Milrinone drip increased to 0.375 mcg/kg/min IV - Lsinopril 2.5 mg daily per cardiology (she was previously on losartan 100 mg daily) - re-start metoprolol cautiously in 1-2 days as pressure tolerates - Lasix 20 mg every 8 IV, adjust for net diuresis goal of 1L/day, follow electrolytes - CT scan and chest ultrasound did not show a large left pleural effusion. Therefore no attempt at thoracentesis will be done. Management will be to treatthe underlying CHF. - No acute ischemia. The patient was told about her poor prognosis and the possible need to remain abby ventilator possibly with a tracheostomy for some time. She does want to continue aggressive care. Family meeting yesterday agreed. (2) Acute on chronic respiratory failure with hypoxia and hypercapnia: PLAN: On mechanical ventilation. Pressure control mode started today to limit hyperventilation and avoid high peak pressures >30. - treat atelectasis with 7 cm PEEP - diuresis - cardiology plan above - maintain PaO2 >=65 and SpO2 >=95% to avoid hypoxic cardiac stress (note her SpO2 is higher than and does not agree with SaO2, which is more accurate) - routine vent bundle; suction, cough, turn, chlorhexidine, position q2h, SBT - allow naps and qHS sedation on propofol 10-20 mcg/kg/min, is tolerating vent with precedex drip - maintain phosphate in normal range - avoid large carbohydrate loads, tube feeds to start today 30cc/hr - may need trache eventually if she continues failure to wean -empiric duoneb q4h guarded prognosis (3) Anemia: PLAN: Hemoglobin has fallen from 10-7.4 during this admission with no overt blood loss, likely due to hemodilution. Patient has known iron deficiency anemia, her baseline hemoglobin is usually 8.5-8.9.. - iron supplements - monitor for further hemoglobin drop - PPI prophylaxis. (4) Congestive heart failure (CHF): PLAN: BNP was mildly elevated this admission at 132. - Plan as above, for cardiomyopathy - maintenance D5NS at 30cc/hr - follow lytes (5) Pneumonia: PLAN: She remains on Zosyn and Vanco for presumed bibasilar pneumonia which may actually be atelectasis. Her white count is normal. No fevers. - De-escalate abx in 24-48h if cultures remain negative - Follow-up chest x-ray (6) Lower extremity edema: PLAN: gentle diuresis with lasix 10 mg q8h IV; increase dose if BP allows. - follow electrolytes. (7) Hyperglycemia: PLAN: good control at this time - monitor and adjust insulin after starting tube feeds today. (8) Lung nodules: PLAN: INCIDENTAL FINDINGS ON CHEST CT TO BE FOLLOWED UP IN 3 MONTHS: 1.3 cm L anterior breast density 4mm RUL nodule 2.5 and 1.6 cm L adrenal nodules Routine radiographic followup recommended. (9) On mechanically assisted ventilation: PLAN: as per #2 above PLAN: Plan Routine ICU PPX: PPI, HOB30, chlorhexidine, lovenox, docusate/lactulose DM2 mgmt per primary; glucoses 189 today Critical care time spent with patient at bedside, review of documentation, lab results, radiology and other test results, discussion with colleagues and ancillary staff, clinical management of patient, and updating family if applicable, was 90 minutes. This time does not include any procedures, if performed. [place] [address] Subjective Subjective Intubated and sedated on ventilator, no complaints. Patient had no chest pain, would like to sleep more well on ventilator but currently comfortable on Precedex 0.3 Overnight course reviewed in ICU with staff during interdisciplinary rounds. Stable overnight. Alert and oriented, RASS 0-1 on mechanical ventilation, being suctioned for clear sputum. Having dark formed stools. She was able to stand at the bedside on the ventilator for 15 seconds. At home she is usually in a wheelchair. Objective Data Objective Data Vital Signs: Vital Signs Temp Pulse Resp BP Pulse Ox O2 Del Method FiO2 99.9 F H 88 20 H 86/55 L 98 Mechanical Ventilator 50 02/20/23 13:00 02/20/23 15:53 02/20/23 15:53 02/20/23 13:00 02/20/23 15:53 02/20/23 13:00 02/20/23 13:00 Oxygen Delivery Method Mechanical Ventilator settings are pressure control of 11, PEEP 7, respiratory rate 15, FiO2 50%. ABG on the settings was 7.49/48/92. Endotracheal tube is 7.5 mm ID, 22 cm at the upper teeth. Weight: 203 lb 0.732 oz Body Mass Index (BMI) 33.8 Intake & Output: Intake and Output for Last 24 Hours 02/18/23 02/19/23 02/20/23 23:59 23:59 23:59 Intake Total 2104.9633 / 2106.6633 1929.82 / 2036.72 1417.04 / 1417.04 Output Total 3250 / 3400 1525 / 1825 1225 / 1225 Balance -1145.0367 / -1293.3367 404.82 / 211.72 192.04 / 192.04 I's and O's net 400 cc positive. Lab / Micro Data Attestation: I reviewed the patient's lab results. Result Diagrams: 02/20/23 04:35 02/20/23 14:05 Labs: Laboratory Results - last 24 hr 02/19/23 16:00: Vancomycin Trough 17.7 H 02/20/23 04:35: WBC 5.5, RBC 2.77 L, Hgb 7.6 L, Hct 26.3 L, MCV 94.9, MCH 27.4, MCHC 28.9 L, RDW Std Deviation 55.1 H, RDW Coeff of Amanda 15.9 H, Plt Count 109 L,MPV 9.5, Immature Gran % (Auto) 0.700, Neut % (Auto) 80.9 H, Lymph % (Auto) 11.6L, Sevier % (Auto) 6.4, Eos % (Auto) 0.2, Baso % (Auto) 0.2, Absolute Neuts (auto)4.5, Absolute Lymphs (auto) 0.64 L, Nucleated RBC % 0 02/20/23 04:35: Sodium 143, Potassium 3.1 L, Chloride 105, Carbon Dioxide 38.0 H, Anion Gap 0 L, BUN 20 H, Creatinine 0.80, Estim Creat Clear Calc 56.36, Est GFR (MDRD) Af Amer 90, Est GFR (MDRD) Non-Af 75, BUN/Creatinine Ratio 25.0 H, Glucose 189 H, Calcium 8.0 L, Total Bilirubin 1.00, AST 24, ALT 24, Alkaline Phosphatase 68, Total Protein 5.8 L, Albumin 2.3 L, Globulin 3.5, Albumin/Globulin Ratio 0.7 L 02/20/23 11:45: Total Creatine Kinase 26, Triglycerides 141 02/20/23 12:48: POC Glucose 160 H 02/20/23 14:05: Sodium 144, Potassium 3.2 L, Chloride 106, Carbon Dioxide 35.0 H, Anion Gap 3 L, BUN 19 H, Creatinine 0.86, Estim Creat Clear Calc 52.42, Est GFR (MDRD) Af Amer 83, Est GFR (MDRD) Non-Af 69, BUN/Creatinine Ratio 22.0 H, Glucose 172 H, Calcium 8.1 L Micro: Microbiology 02/17/23 22:50 Blood Culture (Wb) - Left Forearm Blood Culture - Preliminary No growth in 48 hours. 02/17/23 22:28 Blood Culture (Wb) - Anticubital Left Blood Culture - Preliminary No growth in 48 hours. 02/19/23 13:30 Urine Catheter - Barnes Urine Culture - Preliminary Culture exhibits no growth. 02/18/23 00:35 Sputum, Induced/Lukens Gram Stain - Final 02/18/23 00:35 Sputum, Induced/Lukens Respiratory Culture - Final 02/17/23 22:33 Urine Catheter - Barnes Legionella Antigen - Final 02/17/23 22:33 Urine Catheter - Catheter Streptococcus pneumoniae Antigen (M- Final 02/17/23 22:35 Nasal Secretion SARS-CoV-2 & FLU Antigen (Rapid) - Final ABG Data ABG results: ABG 02/19/23 02/20/23 02/20/23 17:12 05:36 11:07 Specimen Type ART ART ART Sample Site R Radial R Radial R Radial pH 7.59 H 7.50 H 7.54 H Bicarbonate Actual 43.1 H 38.8 H 36.8 H Total CO2 44 40 38 Base Excess 21 H 16 H 14 H O2 Saturation 92 L 98 98 O2 % 40 50 50 ABG pCO2 45.2 H 49.6 H 42.9 ABG pO2 55 L 90 87 Jovon Test Positive Positive Positive Respiration Rate 15 O2 Delivery Device Adult Vent Adult Vent Adult Vent Vent Mode CPAP/PS CPAP/PS AC/PC POC PEEP 7 7 7 POC Pressure Suppt 12 15 13 02/20/23 13:48 Specimen Type ART Sample Site R Radial pH 7.49 H Bicarbonate Actual 36.7 H Total CO2 38 Base Excess 13 H O2 Saturation 98 O2 % 50 ABG pCO2 48.2 H ABG pO2 92 Jovon Test Positive Respiration Rate 15 O2 Delivery Device Adult Vent Vent Mode AC/PC POC PEEP 7 POC Pressure Suppt 11 note her last blood gas was on pressure control, not pressure support. Her respiratory rate was decreased to 12 after that ABG. Radiography Diagnostic Testing: Radiology Impression Venous Doppler Study 02/18/23 01:42 Interpretation Summary Deep veins of the bilateral lower extremities are patent and compressible segmentally. There is no evidence of bilateral lower extremity deep vein thrombosis. The bilateral great saphenous veins appear patent and compressible segmentally. Ordering Physician: Rebecca Resendiz Referring Physician: Barber Carlisle Performed By: Fabi Delacruz, RDCS, RVT Chest X-Ray 02/20/23 06:28 IMPRESSION: No significant interval change from prior exam. Endotracheal tube 7.1 as above the judith at the level of clavicles. Electronically Signed: Keny Duron MD at 6:54 EDT Reading Location ID and State: [facility] / [place] Tel , Service support , Rhythm Strip Rhythm Strip: Sinus Rhythm Rate: 95 Ectopy: None Physical Exam Narrative 10 system exam done. Unchanged from yesterday. Charges/Coding Procedures Hospitalists Procedures: 75009 Critial Care 1st Hr 02/20/23 1659 <Electronically signed by Martín Monique MD> Cosigner Signature (if applicable): CC: ~ Signed [facility] Work Phone: [phone]) [phone] Gonzalez [facility] February 20, 2023 10:38am Note Date/Time February 20, 2023 10:3 8am [facility] Medical Records Department [address] [place] [address] Progress Note - Cardiology 02/20/23 1035 MR#: [id number] Acct: [id number] Name: POLI RAMIREZ Rep #:[id number] : 1950 72 From: Miroslava Gonzalez MD PCP: ARLENE Edmonds Status:ADM I N Location: ICU ICU03-1 Subjective Subjective Remains intubated. Febrile this morning. Objective Data Vital Signs: Vital Signs Temp Pulse Resp BP Pulse Ox O2 Del Method FiO2 100.3 F H 87 16 109/61 96 Mechanical Ventilator 40 02/20/23 07:00 02/20/23 09:50 02/20/23 09:50 02/20/23 07:00 02/20/23 09:50 02/20/23 08:00 02/20/23 08:00 Oxygen Delivery Method Mechanical Ventilator Weight: 203 lb 0.732 oz Body Mass Index (BMI) 33.8 Intake & Output: Intake and Output for Last 24 Hours 02/18/23 02/19/23 02/20/23 23:59 23:59 23:59 Intake Total 2104.9633 / 2106.6633 1929.82 / 2036.72 1004.91 / 1004.91 Output Total 3250 / 3400 1525 / 1825 650 / 650 Balance -1145.0367 / -1293.3367 404.82 / 211.72 354.91 / 354.91 Lab / Micro Data Result Diagrams: 02/20/23 04:35 02/20/23 04:35 Labs: Laboratory Results - last 24 hr 02/19/23 16:00: Vancomycin Trough 17.7 H 02/20/23 04:35: WBC 5.5, RBC 2.77 L, Hgb 7.6 L, Hct 26.3 L, MCV 94.9, MCH 27.4, MCHC 28.9 L, RDW Std Deviation 55.1 H, RDW Coeff of Amanda 15.9 H, Plt Count 109 L,MPV 9.5, Immature Gran % (Auto) 0.700, Neut % (Auto) 80.9 H, Lymph % (Auto) 11.6L, Sevier % (Auto) 6.4, Eos % (Auto) 0.2, Baso % (Auto) 0.2, Absolute Neuts (auto)4.5, Absolute Lymphs (auto) 0.64 L, Nucleated RBC % 0 02/20/23 04:35: Sodium 143, Potassium 3.1 L, Chloride 105, Carbon Dioxide 38.0 H, Anion Gap 0 L, BUN 20 H, Creatinine 0.80, Estim Creat Clear Calc 56.36, Est GFR (MDRD) Af Amer 90, Est GFR (MDRD) Non-Af 75, BUN/Creatinine Ratio 25.0 H, Glucose 189 H, Calcium 8.0 L, Total Bilirubin 1.00, AST 24, ALT 24, Alkaline Phosphatase 68, Total Protein 5.8 L, Albumin 2.3 L, Globulin 3.5, Albumin/Globulin Ratio 0.7 L Micro: Microbiology 02/19/23 13:30 Urine Catheter - Barnes Urine Culture - Preliminary Culture exhibits no growth. 02/18/23 00:35 Sputum, Induced/Lukens Gram Stain - Final 02/18/23 00:35 Sputum, Induced/Lukens Respiratory Culture - Final ABG Data ABG results: ABG 02/19/23 02/19/23 02/20/23 15:48 17:12 05:36 Specimen Type ART ART ART Sample Site R Radial R Radial R Radial pH 7.60 H* 7.59 H 7.50 H Bicarbonate Actual 44.0 H 43.1 H 38.8 H Total CO2 45 44 40 Base Excess 22 H 21 H 16 H O2 Saturation 96 92 L 98 O2 % 40 40 50 ABG pCO2 44.6 45.2 H 49.6 H ABG pO2 69 L 55 L 90 Jovon Test Positive Positive Positive Respiration Rate 12 O2 Delivery Device Adult Vent Adult Vent Adult Vent Vent Mode AC CPAP/PS CPAP/PS Tidal Volume 325 POC PEEP 7 7 7 POC Pressure Suppt 12 15 Crit Call To/Read Back Yes Blood Gas Notified Whom BAGGOTT Rhythm Strip Rhythm Strip: Sinus Rhythm Rate: 95 Ectopy: None Cardiology Labs/Tests 02/19/23 15:48: pH 7.60 H*, Bicarbonate Actual 44.0 H, Base Excess 22 H, O2 Saturation 96, ABG pCO2 44.6, ABG pO2 69 L, Jovon Test Positive 02/19/23 17:12: pH 7.59 H, Bicarbonate Actual 43.1 H, Base Excess 21 H, O2 Saturation 92 L, ABG pCO2 45.2 H, ABG pO2 55 L, Jovon Test Positive 02/20/23 04:35: WBC 5.5, RBC 2.77 L, Hgb 7.6 L, Hct 26.3 L, MCV 94.9, MCH 27.4, MCHC 28.9 L, Plt Count 109 L, MPV 9.5, Immature Gran % (Auto) 0.700, Neut % (Auto) 80.9 H, Lymph % (Auto) 11.6 L, Sevier % (Auto) 6.4, Eos % (Auto) 0.2, Baso % (Auto) 0.2, Absolute Neuts (auto) 4.5, Nucleated RBC % 0 02/20/23 04:35: Sodium 143, Potassium 3.1 L, Chloride 105, Carbon Dioxide 38.0 H, Anion Gap 0 L, BUN 20 H, Creatinine 0.80, Est GFR (MDRD) Af Amer 90, Est GFR (MDRD) Non-Af 75, BUN/Creatinine Ratio 25.0 H, Glucose 189 H, Calcium 8.0 L, Total Bilirubin 1.00 02/20/23 05:36: pH 7.50 H, Bicarbonate Actual 38.8 H, Base Excess 16 H, O2 Saturation 98, ABG pCO2 49.6 H, ABG pO2 90, Jovon Test Positive Rhythm: EKG: ECHO: Stress Test: Cardiac Cath: PCI: CT Surgery: Holter monitor: EPS: PPM: CXR: Chest CT Scan: Radiography Diagnostic Testing: Radiology Impression Chest X-Ray 02/19/23 13:55 IMPRESSION: Nasogastric tube and endotracheal tube appear properly positioned. Bilateral infiltrates unchanged. Mild cardiomegaly. Electronically Signed: Jasbir Stanley MD, JEREMIE at 14:39 EDT , Chest X-Ray 02/20/23 06:28 IMPRESSION: No significant interval change from prior exam. Endotracheal tube 7.1 as above the judith at the level of clavicles. Electronically Signed: Keny Duron MD at 6:54 EDT , Physical Exam Narrative Intubated. Sedated on vent. Heart sounds 1 and 2 are noted. Chest decreased air entry at bases. Abdomen soft. 2+ bilateral ankle edema noted. Assessment & Plan Assessment/Plan (1) Respiratory disorder with ventilator dependence: PLAN: Combination of congestive heart failure and pneumonia. (2) Congestive heart failure (CHF): PLAN: Increase milrinone infusion to 0.375 mcg/kg/min. Continue diuresis. (3) Cardiomyopathy: PLAN: Start low-dose DARIUSZ inhibitors. Continue milrinone infusion (4) Pneumonia: PLAN: As per critical care/internal medicine. Running a fever this morning. Follow as per critical care. (5) Anemia: PLAN: Drop in hemoglobin noted. Follow as per critical care. 02/20/23 1038 <Electronically signed by Miroslava Gonzalez MD> Cosigner Signature (if applicable): CC: ~ Signed [facility] Work Phone: [phone]) 525-378804-09-[address] Padron [facility] February 20, 2023 8:46am Note Date/Time February 20, 2023 7:12 am [facility] Medical Records Department [address] [place] [address] Progress Note - Hospitalist 02/20/23711 MR#: [id number] Acct: [id number] Name: POLI RAMIREZ Rep #:[id number] : 1950 72 From: Hernando Padron MD PCP: ARLENE Edmonds Status:ADM I N Location: ICU ICU03-1 Reason for Visit Reason for Visit: Diagnoses Anemia, unspecified (02/18/23) Metabolic encephalopathy (02/18/23) Cardiomyopathy, unspecified (02/18/23) Heart failure, unspecified (02/18/23) Pneumonia, unspecified organism (02/18/23) Chronic obstructive pulmonary disease, unspecified (02/18/23) Acute and chronic respiratory failure with hypoxia (02/18/23) Acute and chronic respiratory failure with hypercapnia (02/18/23) Respiratory disorder, unspecified (02/18/23) Localized edema (02/18/23) Hyperglycemia, unspecified (02/18/23) Other nonspecific abnormal finding of lung field (02/18/23) Dependence on respirator [ventilator] status (02/18/23) Subjective Subjective Patient seen remains on the vent currently undergoing weaning trial. Objective Data Objective Data Vital Signs: Vital Signs Temp Pulse Resp BP Pulse Ox O2 Del Method FiO2 100.2 F H 95 23 H 95/54 L 95 Mechanical Ventilator 40 02/20/23 06:00 02/20/23 06:48 02/20/23 06:48 02/20/23 06:00 02/20/23 06:48 02/20/23 06:00 02/20/23 06:00 Oxygen Delivery Method Mechanical Ventilator Weight: 92.1 kg Body Mass Index (BMI) 33.8 Intake & Output: Intake and Output for Last 24 Hours 02/18/23 02/19/23 02/20/23 23:59 23:59 23:59 Intake Total 2104.9633 / 2106.6633 1929.82 / 2036.72 902.49 / 902.49 Output Total 3250 / 3400 1525 / 1825 650 / 650 Balance -1145.0367 / -1293.3367 404.82 / 211.72 252.49 / 252.49 Lab / Micro Data Result Diagrams: 02/20/23 04:35 02/20/23 04:35 Labs: Laboratory Results - last 24 hr 02/19/23 16:00: Vancomycin Trough 17.7 H 02/20/23 04:35: WBC 5.5, RBC 2.77 L, Hgb 7.6 L, Hct 26.3 L, MCV 94.9, MCH 27.4, MCHC 28.9 L, RDW Std Deviation 55.1 H, RDW Coeff of Amnada 15.9 H, Plt Count 109 L,MPV 9.5, Immature Gran % (Auto) 0.700, Neut % (Auto) 80.9 H, Lymph % (Auto) 11.6L, Sevier % (Auto) 6.4, Eos % (Auto) 0.2, Baso % (Auto) 0.2, Absolute Neuts (auto)4.5, Absolute Lymphs (auto) 0.64 L, Nucleated RBC % 0 02/20/23 04:35: Sodium 143, Potassium 3.1 L, Chloride 105, Carbon Dioxide 38.0 H, Anion Gap 0 L, BUN 20 H, Creatinine 0.80, Estim Creat Clear Calc 56.36, Est GFR (MDRD) Af Amer 90, Est GFR (MDRD) Non-Af 75, BUN/Creatinine Ratio 25.0 H, Glucose 189 H, Calcium 8.0 L, Total Bilirubin 1.00, AST 24, ALT 24, Alkaline Phosphatase 68, Total Protein 5.8 L, Albumin 2.3 L, Globulin 3.5, Albumin/Globulin Ratio 0.7 L Micro: Microbiology 02/18/23 00:35 Sputum, Induced/Lukens Gram Stain - Final 02/18/23 00:35 Sputum, Induced/Lukens Respiratory Culture - Preliminary Appears to be normal respiratory jie. Further studies to follow. 02/17/23 22:33 Urine Catheter - Barnes Legionella Antigen - Final 02/17/23 22:33 Urine Catheter - Catheter Streptococcus pneumoniae Antigen (M- Final 04/06/23 22:35 Nasal Secretion SARS-CoV-2 & FLU Antigen (Rapid) - Final ABG Data ABG results: ABG 02/19/23 02/19/23 02/20/23 15:48 17:12 05:36 Specimen Type ART ART ART Sample Site R Radial R Radial R Radial pH 7.60 H* 7.59 H 7.50 H Bicarbonate Actual 44.0 H 43.1 H 38.8 H Total CO2 45 44 40 Base Excess 22 H 21 H 16 H O2 Saturation 96 92 L 98 O2 % 40 40 50 ABG pCO2 44.6 45.2 H 49.6 H ABG pO2 69 L 55 L 90 Jovon Test Positive Positive Positive Respiration Rate 12 O2 Delivery Device Adult Vent Adult Vent Adult Vent Vent Mode AC CPAP/PS CPAP/PS Tidal Volume 325 POC PEEP 7 7 7 POC Pressure Suppt 12 15 Crit Call To/Read Back Yes Blood Gas Notified Whom BAGGOTT Radiography Diagnostic Testing: Radiology Impression Chest X-Ray 02/19/23 13:55 IMPRESSION: Nasogastric tube and endotracheal tube appear properly positioned. Bilateral infiltrates unchanged. Mild cardiomegaly. Electronically Signed: Jasbir Stanley MD, JEREMIE at 14:39 EDT , Chest X-Ray 02/20/23 06:28 IMPRESSION: No significant interval change from prior exam. Endotracheal tube 7.1 as above the judith at the level of clavicles. Electronically Signed: Keny Duron MD at 6:54 EDT , Rhythm Strip Rhythm Strip: Sinus Rhythm Rate: 95 Ectopy: None Physical Exam Narrative GENERAL: Awake on the vent HEENT: Atraumatic; normocephalic EYES; Anicteric, Normal Conjunctiva NECK; supple, normal thyroid, RESPIRATORY: Diminished to auscultation CARDIOVASCULAR: Regular S1 S2, GI: soft, normoactive bowel sounds, : No Renal angle tenderness; EXTREMITIES: No edema, no clubbing, MUSCULOSKELETAL: no muscle wasting NEURO: Awake; no lateralizing signs. SKIN: No Rash PSYCH; Flat affect Assessment & Plan Assessment/Plan (1) Metabolic encephalopathy: (2) Acute on chronic respiratory failure with hypoxia and hypercapnia: (3) Hyperglycemia: (4) Lower extremity edema: PLAN: Plan Patient is a 72-year-old lady resident is an ECF was found unresponsive and hypoxic. An assessment of acute on chronic hypoxic and hypercapnic respiratory failure made patient intubated in the emergency department and subsequently transferred to the intensive care unit 1. Acute on chronic hypoxic respiratory failure ? Secondary to combination of pneumonia and possible CHF ? 02/19/2023 patient patient remains on the vent. Weaning deferred to pulmonary medicine ? 02/20/2023; patient remains on the vent currently undergoing weaning trial 2. Suspected pneumonia with MDR's ? Admitted to the intensive care unit patient presented in respiratory failure currently on broad-spectrum antibiotic therapy with Zosyn and vancomycin cultures sent we will follow-up on result 3. Acute congestive heart failure with reduced ejection fraction ? Patient did receive Lasix. Echo ordered for EF assess ?02/19/2023; 2D echo did show Severely dilated left ventricle. Severe global left ventricular systolic dysfunction.The left ventricular ejection fraction is 10 %.Mild global right ventricular systolic dysfunction.Large left pleural effusion. Consult subsequently placed to cardiology 4. Acute metabolic encephalopathy ? Secondary to CO2 narcosis. Patient level of sensorium improving 5. Diabetes mellitus type II -patient's oral hypoglycemics held. Placed on long acting insulin, Accu-Cheks a.c. and at bedtime and covered with sliding scale insulin 6. Anemia - Secondary to chronic disorder monitoring H&H and transfuse if patient becomes symptomatic or hemoglobin falls below 7 ? 02/19/2023; patient hemoglobin down to 7.5 7. Diabetic polyneuropathy ? Patient is on gabapentin held 8. Essential hypertension ? Antihypertensives held 9. GERD ? Patient is on PPI 10. Chronic thrombocytopenia ? Monitoring with daily platelet levels 11. Dyslipidemia -Patient is on statin therapy, continued at home dose 12. Cervical spine fracture of sixth and seventh cervical vertebrae. Appears oren stable; reason she was in a nursing facility at this time. PT/OT consultation 13. Class I obesity with BMI of 33 ? Complicating care 14. Obstructive sleep apnea ? PAP therapy at bedtime 14. DVT prophylaxis -Lovenox daily 40 mg 15.1.3 cm asymmetric density in the anterior left breast. ?Patient to undergo follow-up with diagnostic mammography as outpatient 16. Large left-sided pleural effusion ? Patient to undergo thoracocentesis by interventional radiology Time spent in the patient's overall evaluation,decision-making process, review of diagnostic data, adjustment of management, discussion with other providers, nursing nursing and ancillary staff involved in patient's care documentation, 45 Minutes Charges/Coding Visit Charges Inpatient E&M: 79604 Subs Hosp L2 02/20/23 0846 <Electronically signed by Hernando Padron MD> Cosigner Signature (if applicable): CC: ~ Signed [facility] Work Phone: [phone]) 214-621004-09-[address] Padron [facility] February 20, 2023 7:12am Note Date/Time February 19, 2023 5:15 pm [facility] Medical Records Department [address] [place] [address] Pharmacokinetic/Renal -Consult 02/19/23 1711 MR#: [id number] Acct: [id number] Name: POLI RAMIREZ Rep #:[id number] : 1950 72 From: Gretchen Lance PCP: ARLENE Edmonds Status:ADM I N Y Location: ICU ICU03-1 Consult Pharmacy has been consulted to manage selected antiobiotic: Vancomycin Type of Consult: Follow-up Prior Doses of Antibiotics Received/Current Regimen: Currently on 1gm iv q12h. Labs: Sodium 148 mmol/L (136-145) H 02/19/23 03:55 Potassium 3.0 mmol/L (3.5-5.1) L 02/19/23 03:55 Chloride 104 mmol/L (98-107) 02/19/23 03:55 Carbon Dioxide 41.0 mmol/L (21.0-32.0) H 02/19/23 03:55 Anion Gap 3 (5-15) L 02/19/23 03:55 BUN 29 mg/dL (7-18) H 02/19/23 03:55 Creatinine 0.80 mg/dL (0.55-1.02) 02/19/23 03:55 Est GFR (MDRD) Af Amer 91 mL/min (>60) 02/19/23 03:55 Est GFR (MDRD) Non-Af 75 mL/min (>60) 02/19/23 03:55 BUN/Creatinine Ratio 36.4 RATIO (10-20) H 02/19/23 03:55 Glucose 162 mg/dL (74-106) H 02/19/23 03:55 Vancomycin Trough 17.7 ug/mL (5.0-15.0) H 02/19/23 16:00 Microbiology: Microbiology 02/18/23 00:35 Sputum, Induced/Lukens Gram Stain - Final 02/18/23 00:35 Sputum, Induced/Lukens Respiratory Culture - Preliminary Appears to be normal respiratory jie. Further studies to follow. 02/17/23 22:33 Urine Catheter - Barnes Legionella Antigen - Final 02/17/23 22:33 Urine Catheter - Catheter Streptococcus pneumoniae Antigen (M- Final 02/17/23 22:35 Nasal Secretion SARS-CoV-2 & FLU Antigen (Rapid) - Final Weight used for dosin.9 kg Estimated Creatinine Clearance: 70 ml/min Goal Trough: 15-20 mcg/mL Pharmacy Plan for Drug Dosing: Trough today 17.7 and in desired goal range of 15-20 mcg/ml. Renal CrCl calculated to be ~70 ml/min using an adjusted body weight of 71kg. Will continuesame dose. New trough ordered for before another 4th dose in two days per policy. Pharmacy Service will continue to monitor and adjust dosing as required. Follow-Up Labs: Trough Vancomycin - 4.10.23 @0330 before 0400 dose 02/19/23 1715 <Electronically signed by Gretchen Lance > Date _ Gretchen Lance 02/20/23 0712 <Electronically signed by Hernando Padron MD> Cosigner Signature (if applicable): Date Hernando Padron MD CC: ~ Signed [facility] Work Phone: [phone]) [phone] 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 02/19/23 1047 MR#: [id number] Acct: [id number] Name: POLI RAMIREZ Rep #:[id number] : 1950 72 From: Martín Monique MD PCP: ARLENE Edmonds Status:ADM I N Location: ICU ICU03-1 Assessment & Plan Assessment/Plan (1) Cardiomyopathy: PLAN: Based on the patient's clinical course, lab findings including no active infection, and the fact that she has failed multiple weaning trials due to weakness, which in turn is likely due to her ejection fraction of 10%, I think that it is likely that her initial presentation was probably due to bibasilar lung atelectasis due to weakness which she could not compensate for and developed respiratory failure. Her prognosis is guarded unless her ejection fraction improves. Cardiology consultation is appreciated, and Dr. Hamm is planning the following - Milrinone drip - Small dose lisinopril 2.5 mg daily (she was previously on losartan 100 mg daily) -Lopressor IV will be held in the interest of avoiding hypotension after starting milrinone and lisinopril. She is chronically on 50 mg metoprolol succinate daily, this will be cautiously restarted later. - Lasix 10 mg every 8 IV added; if her blood pressure tolerates this, the dose will be increased cautiously. - CT scan and chest ultrasound did not show a large left pleural effusion. Therefore no attempt at thoracentesis will be done. Management will be to treatthe underlying CHF. - No acute ischemia. - The patient was told about her poor prognosis and the possible need to remain abby ventilator possibly with a tracheostomy for some time. She does want to continue aggressive care. (2) Acute on chronic respiratory failure with hypoxia and hypercapnia: PLAN: On mechanical ventilation. Patient vacillates between hyper and hypoventilation on fairly low vent settings, and has not tolerated weaning trials (PS12/PEEP5) due fatigue and hypoventilation.apnea, RSBI>100. - treat atelectasis with increased PEEP - diuresis - treat low EF with milrinone and DARIUSZ per Dr. Gonzalez - maintain PaO2 >65 and SpO2 >95% to avoid hypoxic cardiac stress - routine vent bundle; suction, cough, turn, chlorhexidine, position q2h, will hold SBT today, continue SAT. - maintain phosphate in normal range (was 3.6 today - avoid large carbohydrate loads - may need trache eventually if she continues failure to wean guarded prognosis (3) Anemia: PLAN: Hemoglobin has fallen from 10-7.4 during this admission with no overt blood loss, likely due to hemodilution. Patient has known iron deficiency anemia, her baseline hemoglobin is usually 8.5-8.9.. - iron supplements - monitor for further hemoglobin drop - PPI prophylaxis. (4) Congestive heart failure (CHF): PLAN: BNP was mildly elevated this admission at 132. - Plan as above, for cardiomyopathy (5) Pneumonia: PLAN: She remains on Zosyn and Vanco for presumed bibasilar pneumonia which may actually be atelectasis. Her white count is normal. No fevers. - PEEP was increased for atelectasis today. - Follow-up chest x-ray (6) Lower extremity edema: PLAN: gentle diuresis with lasix 10 mg q8h IV; increase dose if BP allows. - follow electrolytes. (7) Hyperglycemia: PLAN: good control at this time - monitor and adjust insulin after starting tube feeds today. (8) Lung nodules: PLAN: INCIDENTAL FINDINGS ON CHEST CT TO BE FOLLOWED UP IN 3 MONTHS: 1.3 cm L anterior breast density 4mm RUL nodule 2.5 and 1.6 cm L adrenal nodules Routine radiographic followup recommended. (9) On mechanically assisted ventilation: PLAN: as per #2 above PLAN: Plan Critical care time spent with patient at bedside, review of documentation, lab results, radiology and other test results, discussion with colleagues and ancillary staff, clinical management of patient, and updating family if applicable, was 90 minutes. This time does not include any procedures, if performed. [place] [address], [address]. Subjective Subjective Subjective patient is mildly sedated on mechanical ventilation, no complaints ofchest pain, other pain, and nodded yes emphatically when asked if she wants to have everything done including tracheostomy and resuscitation if needed. No shortness of breath on the ventilator. She was told that her heart function was very weak, and that it may be difficultto get her off the ventilator, that she may eventually need a tracheostomy and agreed. It is noted that she has a C6-7 fracture with a plan for spontaneous healing, sowould need extremely cautious manipulation of the head and neck if any procedurewas necessary. Objective Data Objective Data Cough, scant production. Overnight information reviewed with nursing staff. RASS is -10, she has 2 peripheral IVs, Tmax 99.1, Echocardiogram is below showed left ventricular ejection fraction of 10% with global hypokinesis, normal RV with mild RV dysfunction although the echocardiogram indicated a large left pleural effusion, invasive radiology did not find that. Phosphorus is repleted, electrolytes unremarkable glucose 162, case discussed with Dr. Gonzalez Vital Signs: Vital Signs Temp Pulse Resp BP Pulse Ox O2 Del Method FiO2 99.4 F H 83 20 H 105/66 96 Mechanical Ventilator 40 02/19/23 10:02/19/23 10:02/19/23 10:02/19/23 10:02/19/23 10:02/19/23 10:00 02/19/23 10:00 Oxygen Delivery Method Mechanical Ventilator settings tidal volume 325, rate 16 (decreased to 12) PEEP of 7 FiO2 40%. ABG on a rate of 16 was 7.55PCO2 48 PO2 81 8 inspiratory pressure decreased to less than 31 tidal volume decreased from 350 to 325 cc. Weight: 202 lb 9.677 oz Body Mass Index (BMI) 33.7 Respiratory weaning assessment: The patient continues to hypoventilate when placed on pressure support ventilation, she was on pressure support wean 10/18 yesterday afternoon, but hypoventilated. In the late evening, the staff noted hypoventilation with tidal volumes in the 100 to 200 cc range; she was placed back on the ventilator overnight. Due to her low cardiac output, we did not restart a weaning trial today pending further cardiac status improvement. Intake & Output: Intake and Output for Last 24 Hours 02/17/23 02/18/23 02/19/23 23:59 23:59 23:59 Intake Total 2104.9633 / 2106.6633 391.62 / 391.62 Output Total 3250 / 3400 550 / 550 Balance -1145.0367 / -1293.3367 -158.38 / -158.38 Tube feeds to start today. Lab / Micro Data Result Diagrams: 02/19/23 03:55 02/19/23 03:55 Labs: Laboratory Results - last 24 hr 02/19/23 03:55: WBC 4.8, RBC 2.69 L, Hgb 7.5 L, Hct 25.5 L, MCV 94.8, MCH 27.9, MCHC 29.4 L D, RDW Std Deviation 54.0 H, RDW Coeff of Amanda 15.8 H, Plt Count 104 L, MPV 9.0, Immature Gran % (Auto) 0.400, Neut % (Auto) 79.0 H, Lymph % (Auto) 13.9 L, Sevier % (Auto) 6.5, Eos % (Auto) 0.2, Baso % (Auto) 0.0, Absolute Neuts (auto) 3.8, Absolute Lymphs (auto) 0.66 L, Nucleated RBC % 0 02/19/23 03:55: Sodium 148 H, Potassium 3.0 L, Chloride 104, Carbon Dioxide 41.0H, Anion Gap 3 L, BUN 29 H, Creatinine 0.80, Estim Creat Clear Calc 56.36, Est GFR (MDRD) Af Amer 91, Est GFR (MDRD) Non-Af 75, BUN/Creatinine Ratio 36.4 H, Glucose 162 H, Calcium 7.9 L, Phosphorus 3.6, Magnesium 2.0, Total Bilirubin 0.60, AST 25, ALT 22, Alkaline Phosphatase 69, Total Protein 5.9 L, Albumin 2.3 L, Globulin 3.6, Albumin/Globulin Ratio 0.6 L Micro: Microbiology 02/18/23 00:35 Sputum, Induced/Lukens Gram Stain - Final 02/18/23 00:35 Sputum, Induced/Lukens Respiratory Culture - Preliminary Appears to be normal respiratory jie. Further studies to follow. 02/17/23 22:33 Urine Catheter - Barnes Legionella Antigen - Final 02/17/23 22:33 Urine Catheter - Catheter Streptococcus pneumoniae Antigen (M- Final 02/17/23 22:35 Nasal Secretion SARS-CoV-2 & FLU Antigen (Rapid) - Final Respiratory PCR canceled, urine culture reordered. ABG Data ABG results: ABG 02/18/23 02/19/23 17:16 04:19 Specimen Type ART ART Sample Site R RADIAL L Radial pH 7.54 H 7.55 H Bicarbonate Actual 50.4 H 42.3 H Total CO2 > 50 44 Base Excess 28 H 20 H O2 Saturation 93 L 97 O2 % 35 40 ABG pCO2 59.3 H 48.2 H ABG pO2 62 L 81 Jovon Test P N/A Respiration Rate 16 O2 Delivery Device Adult Vent Vent Mode PS AC Tidal Volume 325 POC PEEP 5 7 POC Pressure Suppt 14 Blood Gas Notified Whom Blood Gas Notified Time 1716 repeat ordered at 1500 today. On settings of tidal volume 325 respiratory rate 12 FiO2 titrated to saturation 95% or greater, PEEP of 7. Radiography Diagnostic Testing: Radiology Impression Echocardiogram 02/18/23 08:21 Interpretation Summary The study was technically difficult. Severely dilated left ventricle. Severe global left ventricular systolic dysfunction. The left ventricular ejection fraction is 10 %. Mild global right ventricular systolic dysfunction. Large left pleural effusion. Ordering Physician: Hernando Padron Performed By: Bhupinder Rendon RCS [note: chest ultrasound and CT chest did NOT show a large left pleural effusion. -lb] CT/Chest without Contrast IMPRESSION: 1. Bilateral lower lobe consolidation consistent with pneumonia. 2. Small bilateral pleural effusions. 3. Lingular atelectasis versus infiltrate. 4. 4 mm right upper lobe pulmonary nodule. Per Fleischner criteria, if the patient has increased risk factors for lung cancer, recommend follow-up CT of the chest in 12 months. Otherwise no follow-up is recommended. 5. 2.5 cm and 1.6 cm left adrenal gland nodules with indeterminate attenuation values. Per ACR White Paper, recommend follow-up with nonemergent adrenal CT. 6. Cardiomegaly. 7. 1.3 cm asymmetric density in the anterior left breast. Consider follow-up with diagnostic mammography. Electronically Signed: Basim Leija DO at 2:02 EDT Chest Ultrasound 02/18/23 12:16 IMPRESSION: No significant effusions are seen. Bibasilar pulmonary infiltrates. Electronically Signed: Thomas Ahumada MD at 14:45 EDT , Rhythm Strip Rhythm Strip: Sinus Rhythm Rate: 95 Ectopy: None Physical Exam Narrative Well-developed obese, awake alert no acute distress. HEENT exam with endotracheal tube in good position, the patient with a good cough, able to raise scant creamy secretions of mild quantity. No hemoptysis. Chest has diminished breath sounds bilaterally with no wheezes rales or rhonchi. Heart normal S1-S2 with no murmurs rubs or gallop Abdomen is soft, nontender, no organomegaly or mass Extremities have no clubbing or cyanosis. There is 4+ pitting edema. Skin is pale, edematous, cool and dry. Neuro is nonfocal but diffusely weak. 02/19/23 1355 <Electronically signed by Martín Monique MD> Cosigner Signature (if applicable): CC: ~ Signed [facility] Work Phone: 1(483) 338-800204-08-[address] Gonzalez [facility] February 19, 2023 11:57am Note Date/Time February 19, 2023 11:5 6am [facility] Medical Records Department [address] [place] [address] Consultation - Cardiology 02/19/23 1146 MR#: [id number] Acct: [id number] Name: POLI RAMIREZ Rep #:[id number] : 1950 72 From: Miroslava Gnozalez MD PCP: ARLENE Edmonds Status:ADM I N Location: ICU ICU03-1 Assessment & Plan Assessment/Plan (1) Respiratory disorder with ventilator dependence: PLAN: Combination of congestive heart failure and pneumonia. Being treated withantibiotics. Will start on diuretics. Patient failed trial of weaning of the ventilator. Will start on low-dose milrinone (2) Congestive heart failure (CHF): PLAN: See #1 above. Start on low-dose milrinone. Diuretics. (3) Cardiomyopathy: PLAN: Start low-dose DARIUSZ inhibitors. (4) Pneumonia: PLAN: As per critical care/internal medicine (5) Anemia: PLAN: Drop in hemoglobin noted. Follow as per critical care. HPI Consult Data Date of Consult: 02/19/23 HPI Narrative Reason for Consultation: Cardiomyopathy HPI Narrative: The patient presented to the emergency room with complaints of shortness of breath. She was noted to be markedly hypoxic. Subsequently she was intubated and mechanical ventilation was started. Initial concern was pneumonia. She hashad an echocardiogram done yesterday which showed severely dilated left ventricle with an ejection fraction of 10%. Patient is presently intubated and unable to provide any history. [facility] Medical History (Updated 02/19/23 @ 11:[address] 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 Chronic respiratory failure with hypoxia COPD (chronic obstructive pulmonary disease) Dysphagia Essential hypertension GERD (gastroesophageal reflux disease) History of falling Insomnia, unspecified Iron deficiency anemia Muscle weakness (generalized) Myocardial infarction Obstructive sleep apnea Other displaced fracture of seventh cervical vertebra, subsequent encounter for fracture with routine healing Other displaced fracture of sixth cervical vertebra, subsequent encounter for fracture with routine healing Other lack of coordination Other pancytopenia Personal history of malignant neoplasm of breast Personal history of nicotine dependence Pneumonia Primary osteoarthritis, left shoulder Primary osteoarthritis, right shoulder Pure hypercholesterolemia Respiratory failure with hypoxia Thrombocytopenia Type 2 diabetes mellitus with diabetic neuropathy Unspecified abnormalities of gait and mobility Urinary incontinence Venous insufficiency Venous insufficiency (chronic) (peripheral) Vitamin B12 deficiency Home Medications gabapentin 300 mg capsule 300 mg PO TID Check with primary doctor 11/24/21 [History Last Taken Unknown] losartan 100 mg tablet 100 mg PO DAILY Check with primary doctor 11/24/21 [History Last Taken Unknown] metoprolol succinate 50 mg tablet,extended release 24 hr 50 PO DAILY Check with primary doctor 11/24/21 [History Last Taken Unknown] nystatin 100,000 unit/gram topical cream 1 applic topical BID Check with primarydoctor 11/24/21 [History Last Taken Unknown] omeprazole 20 mg capsule,delayed release 20 mg PO DAILY Check with primary doctor 11/24/21 [History Last Taken Unknown] simvastatin 10 mg tablet 10 mg PO QHS Check with primary doctor 11/24/21 [History Last Taken Unknown] bisacodyl 10 mg rectal suppository 10 mg PA DAILY PRN 11/11/22 [History Last Taken Unknown] cranberry 400 mg capsule 400 mg PO DAILY 11/11/22 [History Last Taken Unknown] cyanocobalamin (vitamin B-12) 1,000 mcg capsule 1,000 mcg PO DAILY 11/11/22 [History Last Taken Unknown] docusate sodium 100 mg capsule 100 mg PO DAILY 11/11/22 [History Last Taken Unknown] ferrous sulfate 200 mg (40 mg iron) tablet PO 11/11/22 [History Last Taken Unknown] folic acid 1 mg tablet 1 mg PO DAILY 11/11/22 [History Last Taken Unknown] glimepiride 1 mg tablet (Amaryl) 1 mg PO DAILY 11/11/22 [History Last Taken Unknown] glucagon 1 mg injection kit mg IM 11/11/22 [History Last Taken Unknown] oxycodone 5 mg capsule 5 mg PO Q6H PRN 11/11/22 [History Last Taken Unknown] Allergy/AdvReac Type Severity Reaction Status Date / Time cyclobenzaprine Allergy Other Verified 02/17/23 22:35 [From Flexeril] tizanidine [From Zanaflex] Allergy Other Verified 02/17/23 22:35 Family History Sister Breast cancer Grandmother Diabetes Surgical History History of lumpectomy of left breast Hx of cervical spine surgery Hx of cholecystectomy Social History (Updated 02/18/23 @ 00:[address] Rebecca Resendiz DO) housing: [facility]pc Smoking Status: Former smoker alcohol intake: never substance use type: does not use Physical Exam Narrative Intubated. Awake. No apparent distress. Heart sounds 1 and 2 are noted. Chest decreased air entry at bases. Abdomen soft. 3+ bilateral ankle edema noted. Risk Stratification Risk Stratification Applicable: No Objective Data Vital Signs: Vital Signs Temp Pulse Resp BP Pulse Ox O2 Del Method FiO2 99.4 F H 83 20 H 105/66 96 Mechanical Ventilator 40 02/19/23 10:00 02/19/23 10:00 02/19/23 10:00 02/19/23 10:00 02/19/23 10:00 02/19/23 10:00 02/19/23 10:00 Oxygen Delivery Method Mechanical Ventilator Weight: 202 lb 9.677 oz Body Mass Index (BMI) 33.7 Intake & Output: Intake and Output for Last 24 Hours 02/17/23 02/18/23 02/19/23 23:59 23:59 23:59 Intake Total 2104.9633 / 2106.6633 501.62 / 501.62 Output Total 3250 / 3400 550 / 550 Balance -1145.0367 / -1293.3367 -48.38 / -48.38 Lab / Micro Data Result Diagrams: 02/19/23 03:55 02/19/23 03:55 Labs: Laboratory Results - last 24 hr 02/19/23 03:55: WBC 4.8, RBC 2.69 L, Hgb 7.5 L, Hct 25.5 L, MCV 94.8, MCH 27.9, MCHC 29.4 L D, RDW Std Deviation 54.0 H, RDW Coeff of Amanda 15.8 H, Plt Count 104 L, MPV 9.0, Immature Gran % (Auto) 0.400, Neut % (Auto) 79.0 H, Lymph % (Auto) 13.9 L, Sevier % (Auto) 6.5, Eos % (Auto) 0.2, Baso % (Auto) 0.0, Absolute Neuts (auto) 3.8, Absolute Lymphs (auto) 0.66 L, Nucleated RBC % 0 02/19/23 03:55: Sodium 148 H, Potassium 3.0 L, Chloride 104, Carbon Dioxide 41.0H, Anion Gap 3 L, BUN 29 H, Creatinine 0.80, Estim Creat Clear Calc 56.36, Est GFR (MDRD) Af Amer 91, Est GFR (MDRD) Non-Af 75, BUN/Creatinine Ratio 36.4 H, Glucose 162 H, Calcium 7.9 L, Phosphorus 3.6, Magnesium 2.0, Total Bilirubin 0.60, AST 25, ALT 22, Alkaline Phosphatase 69, Total Protein 5.9 L, Albumin 2.3 L, Globulin 3.6, Albumin/Globulin Ratio 0.6 L Micro: Microbiology 02/18/23 00:35 Sputum, Induced/Lukens Gram Stain - Final 02/18/23 00:35 Sputum, Induced/Lukens Respiratory Culture - Preliminary Appears to be normal respiratory jie. Further studies to follow. ABG Data ABG results: ABG 02/18/23 02/19/23 17:16 04:19 Specimen Type ART ART Sample Site R RADIAL L Radial pH 7.54 H 7.55 H Bicarbonate Actual 50.4 H 42.3 H Total CO2 > 50 44 Base Excess 28 H 20 H O2 Saturation 93 L 97 O2 % 35 40 ABG pCO2 59.3 H 48.2 H ABG pO2 62 L 81 Jovon Test P N/A Respiration Rate 16 O2 Delivery Device Adult Vent Vent Mode PS AC Tidal Volume 325 POC PEEP 5 7 POC Pressure Suppt 14 Blood Gas Notified Whom Blood Gas Notified Time 1716 Rhythm Strip Rhythm Strip: Sinus Rhythm Rate: 95 Ectopy: None Cardiology Labs/Tests 02/18/23 17:16: pH 7.54 H, Bicarbonate Actual 50.4 H, Base Excess 28 H, O2 Saturation 93 L, ABG pCO2 59.3 H, ABG pO2 62 L, Jovon Test P 02/19/23 03:55: WBC 4.8, RBC 2.69 L, Hgb 7.5 L, Hct 25.5 L, MCV 94.8, MCH 27.9, MCHC 29.4 L D, Plt Count 104 L, MPV 9.0, Immature Gran % (Auto) 0.400, Neut % (Auto) 79.0 H, Lymph % (Auto) 13.9 L, Sevier % (Auto) 6.5, Eos % (Auto) 0.2, Baso % (Auto) 0.0, Absolute Neuts (auto) 3.8, Nucleated RBC % 0 02/19/23 03:55: Sodium 148 H, Potassium 3.0 L, Chloride 104, Carbon Dioxide 41.0H, Anion Gap 3 L, BUN 29 H, Creatinine 0.80, Est GFR (MDRD) Af Amer 91, Est GFR (MDRD) Non-Af 75, BUN/Creatinine Ratio 36.4 H, Glucose 162 H, Calcium 7.9 L, Phosphorus 3.6, Magnesium 2.0, Total Bilirubin 0.60 02/19/23 04:19: pH 7.55 H, Bicarbonate Actual 42.3 H, Base Excess 20 H, O2 Saturation 97, ABG pCO2 48.2 H, ABG pO2 81, Jovon Test N/A Rhythm: EKG:. ECHO: Stress Test: Cardiac Cath: PCI: CT Surgery: Holter monitor: EPS: PPM: CXR: Chest CT Scan: Radiography Diagnostic Testing: Radiology Impression Echocardiogram 02/18/23 08:21 Interpretation Summary The study was technically difficult. Severely dilated left ventricle. Severe global left ventricular systolic dysfunction. The left ventricular ejection fraction is 10 %. Mild global right ventricular systolic dysfunction. Large left pleural effusion. Ordering Physician: Hernando Padron Performed By: Bhupinder Rendon RCS Chest Ultrasound 02/18/23 12:16 IMPRESSION: No significant effusions are seen. Bibasilar pulmonary infiltrates. Electronically Signed: Thomas Ahumada MD at 14:45 EDT , 02/19/23 1157 <Electronically signed by Miroslava Gonzalez MD> Cosigner Signature (if applicable): CC: FARM MACHINERY ENGINE MECHANICGiancarlo Richey; FARM MACHINERY ENGINE MECHANIC-Andrea Carlisle; Dr. Serge Banks MD; Dr. Hernando Padron MD; Dr. Ajit Mcgill DO; Dr. Thomas Ahumada MD; Dr. Rebecca Resendiz DO; Dr. Martín Monique MD; Dr. Krzysztof Pennington MD~ Signed [facility] Work Phone: 1(233) 713-863704-08-[address] Padron [facility] February 19, 2023 8:28am Note Date/Time February 19, 2023 7:11 am [facility] Medical Records Department [address] [address] Progress Note - Hospitalist 02/19/23709 MR#: [id number] Acct: [id number] Name: POLI RAMIREZ Rep #:[id number] : 1950 72 From: Hernando Padron MD PCP: Barber Carlisle, FARM MACHINERY ENGINE MECHANIC-Andrea Status:ADM I N Location: ICU ICU- Reason for Visit Reason for Visit: Diagnoses Metabolic encephalopathy (02/18/23) Pneumonia, unspecified organism (02/18/23) Chronic obstructive pulmonary disease, unspecified (02/18/23) Acute and chronic respiratory failure with hypoxia (02/18/23) Acute and chronic respiratory failure with hypercapnia (02/18/23) Localized edema (02/18/23) Hyperglycemia, unspecified (02/18/23) Subjective Subjective Patient seen remains on the vent. 2D echo obtained the day prior did show EF of10% Objective Data Objective Data Vital Signs: Vital Signs Temp Pulse Resp BP Pulse Ox O2 Del Method FiO2 99.1 F 67 14 106/59 L 96 Mechanical Ventilator 40 02/19/23 06:00 02/19/23 06:00 02/19/23 06:00 02/19/23 06:00 02/19/23 06:00 02/19/23 06:00 02/19/23 06:00 Oxygen Delivery Method Mechanical Ventilator Weight: 91.9 kg Body Mass Index (BMI) 33.7 Intake & Output: Intake and Output for Last 24 Hours 02/17/23 02/18/23 02/19/23 23:59 23:59 23:59 Intake Total 2104.9633 / 2106.6633 277.22 / 277.22 Output Total 3250 / 3400 550 / 550 Balance -1145.0367 / -1293.3367 -272.78 / -272.78 Lab / Micro Data Result Diagrams: 02/19/23 03:55 02/19/23 03:55 Labs: Laboratory Results - last 24 hr 02/19/23 03:55: WBC 4.8, RBC 2.69 L, Hgb 7.5 L, Hct 25.5 L, MCV 94.8, MCH 27.9, MCHC 29.4 L D, RDW Std Deviation 54.0 H, RDW Coeff of Amanda 15.8 H, Plt Count 104 L, MPV 9.0, Immature Gran % (Auto) 0.400, Neut % (Auto) 79.0 H, Lymph % (Auto) 13.9 L, Sevier % (Auto) 6.5, Eos % (Auto) 0.2, Baso % (Auto) 0.0, Absolute Neuts (auto) 3.8, Absolute Lymphs (auto) 0.66 L, Nucleated RBC % 0 02/19/23 03:55: Sodium 148 H, Potassium 3.0 L, Chloride 104, Carbon Dioxide 41.0H, Anion Gap 3 L, BUN 29 H, Creatinine 0.80, Estim Creat Clear Calc 56.36, Est GFR (MDRD) Af Amer 91, Est GFR (MDRD) Non-Af 75, BUN/Creatinine Ratio 36.4 H, Glucose 162 H, Calcium 7.9 L, Phosphorus 3.6, Magnesium 2.0, Total Bilirubin 0.60, AST 25, ALT 22, Alkaline Phosphatase 69, Total Protein 5.9 L, Albumin 2.3 L, Globulin 3.6, Albumin/Globulin Ratio 0.6 L Micro: Microbiology 02/18/23 00:35 Sputum, Induced/Lukens Gram Stain - Final 02/17/23 22:33 Urine Catheter - Barnes Legionella Antigen - Final 02/17/23 22:33 Urine Catheter - Catheter Streptococcus pneumoniae Antigen (M- Final 02/17/23 22:35 Nasal Secretion SARS-CoV-2 & FLU Antigen (Rapid) - Final ABG Data ABG results: ABG 02/18/23 02/18/23 02/19/23 08:39 17:16 04:19 Specimen Type ART ART ART Sample Site L Radial R RADIAL L Radial pH 7.66 H* 7.54 H 7.55 H Bicarbonate Actual 40.4 H 50.4 H 42.3 H Total CO2 42 > 50 44 Base Excess 20 H 28 H 20 H O2 Saturation 98 93 L 97 O2 % 35 35 40 ABG pCO2 36.3 59.3 H 48.2 H ABG pO2 79 62 L 81 Jovon Test Positive P N/A Respiration Rate 16 16 O2 Delivery Device Adult Vent Adult Vent Vent Mode AC PS AC Tidal Volume 375 325 POC PEEP 7 5 7 POC Pressure Suppt 14 Crit Call To/Read Back Yes Blood Gas Notified Whom STEW SILVA Blood Gas Notified Time 1716 Radiography Diagnostic Testing: Radiology Impression Echocardiogram 02/18/23 08:21 Interpretation Summary The study was technically difficult. Severely dilated left ventricle. Severe global left ventricular systolic dysfunction. The left ventricular ejection fraction is 10 %. Mild global right ventricular systolic dysfunction. Large left pleural effusion. Ordering Physician: Hernando Padron Performed By: Bhupinder Rendon RCS Chest Ultrasound 02/18/23 12:16 IMPRESSION: No significant effusions are seen. Bibasilar pulmonary infiltrates. Electronically Signed: Thomas Ahumada MD at 14:45 EDT , Rhythm Strip Rhythm Strip: Sinus Rhythm Rate: 95 Ectopy: None Physical Exam Narrative GENERAL: Awake on the vent HEENT: Atraumatic; normocephalic EYES; Anicteric, Normal Conjunctiva NECK; supple, normal thyroid, RESPIRATORY: Diminished to auscultation CARDIOVASCULAR: Regular S1 S2, GI: soft, normoactive bowel sounds, : No Renal angle tenderness; EXTREMITIES: No edema, no clubbing, MUSCULOSKELETAL: no muscle wasting NEURO: Awake; no lateralizing signs. SKIN: No Rash PSYCH; Flat affect Assessment & Plan Assessment/Plan (1) Metabolic encephalopathy: (2) Acute on chronic respiratory failure with hypoxia and hypercapnia: (3) Hyperglycemia: (4) Lower extremity edema: PLAN: Plan Patient is a 72-year-old lady resident is an F was found unresponsive and hypoxic. An assessment of acute on chronic hypoxic and hypercapnic respiratory failure made patient intubated in the emergency department and subsequently transferred to the intensive care unit 1. Acute on chronic hypoxic respiratory failure ? Secondary to combination of pneumonia and possible CHF ? 02/19/2023 patient patient remains on the vent. Weaning deferred to pulmonary medicine 2. Suspected pneumonia with MDR's ? Admitted to the intensive care unit patient presented in respiratory failure currently on broad-spectrum antibiotic therapy with Zosyn and vancomycin cultures sent we will follow-up on result 3. Acute congestive heart failure with reduced ejection fraction ? Patient did receive Lasix. Echo ordered for EF assess ?02/19/2023; 2D echo did show Severely dilated left ventricle. Severe global left ventricular systolic dysfunction.The left ventricular ejection fraction is 10 %.Mild global right ventricular systolic dysfunction.Large left pleural effusion. Consult subsequently placed to cardiology 4. Acute metabolic encephalopathy ? Secondary to CO2 narcosis. Patient level of sensorium improving 5. Diabetes mellitus type II -patient's oral hypoglycemics held. Placed on long acting insulin, Accu-Cheks a.c. and at bedtime and covered with sliding scale insulin 6. Anemia - Secondary to chronic disorder monitoring H&H and transfuse if patient becomes symptomatic or hemoglobin falls below 7 ? 02/19/2023; patient hemoglobin down to 7.5 7. Diabetic polyneuropathy ? Patient is on gabapentin held 8. Essential hypertension ? Antihypertensives held 9. GERD ? Patient is on PPI 10. Chronic thrombocytopenia ? Monitoring with daily platelet levels 11. Dyslipidemia -Patient is on statin therapy, continued at home dose 12. Cervical spine fracture of sixth and seventh cervical vertebrae. Appears oren stable; reason she was in a nursing facility at this time. PT/OT consultation 13. Class I obesity with BMI of 33 ? Complicating care 14. Obstructive sleep apnea ? PAP therapy at bedtime 14. DVT prophylaxis -Lovenox daily 40 mg 15.1.3 cm asymmetric density in the anterior left breast. ?Patient to undergo follow-up with diagnostic mammography as outpatient 16. Large left-sided pleural effusion ? Patient to undergo thoracocentesis by interventional radiology Time spent in the patient's overall evaluation,decision-making process, review of diagnostic data, adjustment of management, discussion with other providers, nursing nursing and ancillary staff involved in patient's care documentation, 55 Minutes Charges/Coding Visit Charges Inpatient E&M: 17778 [facility] Hosp L3 02/19/23 0820 <Electronically signed by Hernando Padron MD> Cosigner Signature (if applicable): CC: ~ Signed [facility] Work Phone: 1(146) 801-542004-07-[address] Monique [facility] February 18, 2023 8:01pm Note Date/Time February 18, 2023 9:53 am [facility] Medical Records Department [address] [place] [address] Consultation - Poultry Farm Manager 02/18/23 0953 MR#: [id number] Acct: [id number] Name: POLI RAMIREZ Rep #:[id number] : 1950 72 From: Martín Monique MD PCP: ARLENE Edmonds Status:ADM I N Location: ICU ICU03-[address] Martín Monique MD on 02/18/23 at 2000 Addendum Echocardiogram today showed end-stage cardiomyopathy, with left ventricular ejection fraction of 10%, global hypokinesis, right ventricular with normal sizeand mild RV systolic dysfunction. There is a large left pleural effusion. The low ejection fraction likely explains why she was unable to tolerate 2 weaning trials today. She is on pressure support ventilation 12/5 overnight, with improved ABG and PCO2 back to her baseline of 55-60. Oxygenating well. Patient's prognosis is very guarded in view of this end-stage cardiac dysfunction. 02/18/232000<Electronically signed by Martín Monique MD> Cosigner Signature (if applicable): cc: FARM MACHINERY ENGINE MECHANIC-Andrea Richey; FARM MACHINERY ENGINE MECHANIC-C Barber Carlisle; Dr. Serge Banks MD; Dr. Ajit Mcgill DO; Dr. Thomas Ahumada MD; Dr. Rebecca Resendiz DO; Dr. Martín Monique MD; Dr. Krzysztof Pennington MD ~* Signed Assessment & Plan Assessment/Plan (1) Acute on chronic respiratory failure with hypoxia and hypercapnia: (2) COPD (chronic obstructive pulmonary disease): (3) Pneumonia: PLAN: Plan Impression: 1. Left lower lobe pneumonia, with possible left pleural effusion 2. Acute on chronic hypoxic and hypercarbic respiratory failure, on mechanical ventilation 3. Medical blastic anemia, possible B12 or folate deficiency Proteinuria Hypophosphatemia MRSA positive swab Occult hematuria Abnormal EKG, normal troponins. Plan: 1. Support on ventilator, wean as tolerated, ventilator bundle, head of bed 30 degrees, chlorhexidine, SBT, SAT per protocol 2. Bronchopulmonary hygiene 3. Zosyn and vancomycin empirically, 4. Patient cultured, await results, adjust antibiotics as needed 5. Potassium phosphate supplementation, recheck phosphate later today 6. Maintenance fluids with D5 half-normal saline at 30 cc/h 6. Ultrasound of left hemithorax to rule out effusion, if present she should have a tap. IR was consulted, preprocedure labs placed. 7. Follow-up of urinary abnormalities per primary team once the patient stabilizes. 8. Monitor cardiac status. BNP is currently normal Thank you for consulting [facility] for critical care. We will follow the patient with you.. Martín Monique MD [facility] HPI Consult Data Date of Consult: 02/18/23 HPI Narrative Reason for Consultation: Respiratory failure on mechanical ventilation, chronic hypercarbia HPI Narrative: POLI RAMIREZ, is a unfortunate 72-year-old woman who [facility] neck fracture was found unresponsive at her [facility] with SPO2 70s GCS 3.? No response to Narcan, Ambu bag on route., transported to the ER. ?O2 saturation on presentation in ER 60%, not breathing. ?She was last seen normal 3 hours prior to her ER arrival. ?There was no family.? EKG showed a possible NSTEMI but artifact was present. ?She was DNR [facility]. ? Intubated in ER for respiratory failure and hypoxemia.? Initial venous gas afterintubation was 7.33 PCO2 96.? Neph was -22.? Work-up showed a left lower lobe pneumonia with possible effusion.? Her temperature was hypothermic at 96.3.? Vital signs otherwise stable.? She was immediately back to the 98% sat range, and her initial saturation on mechanical ventilation was 94%.? She was stable and transferred to ICU. She was initially on 100% FiO2, during the course of the night her ventilator was weaned to a tidal volume of 450, rate of 20, PEEP of 5, FiO2 of 50%.? Her ABG in ICU showed acute respiratory alkalosis on top of chronic respiratory acidosis. Ventilator settings were weaned to tidal volume 375, rate 16, PEEP 7, FiO2 35%.?At that time she had awoken, was responsive, breathing spontaneously with a goodcough.? It was noted that her baseline PCO2 is usually in the 60s.? I noted she has mild to moderate amounts of allen sputum, normal thickness.? Patient is able to raise it with coughing. She was then placed on a pressure support SBT with PEEP of 5 and pressure support of 8.? Her blood gas on that was 7.48, PCO2 42, PO2 76.? She was noted to be having apneas during the trial, likely because of trying to reestablish her chronic CO2 level.? She was placed back on the ventilator with a tidal volume of 325, FiO2 of 35%, PEEP of 5.? No pressure support.? Rate of 10. Labs were remarkable for normal white count, hemoglobin 10.1, 2% bands, CO2 45, normal anion gap, BUN 23, creatinine 1.64, glucose 238, normal liver function test, albumin 2.9.? Urinalysis is unremarkable except for positive protein and occult blood with few red cells.? Talk screen was negative.? Alcohol less than 3brain CT scan was negative. Past medical history anemia, ASHD, DVT chronic right lower extremity, chronic respiratory failure with hypoxia, COPD, dysphagia, hypertension, GERD, frequent falls, insomnia, obstructive sleep apnea, [place], generalized weakness, displaced fracture of the sixth and seventh cervical vertebrae, pancytopenia, history of breast cancer, nicotine dependence, osteoarthritis both shoulders, type 2 diabetes with diabetic neuropathy, impaired mobility, venous insufficiency, urinary incontinence. Her home medications were reviewed. Surgical history: Left breast lumpectomy, C-spine surgery, cholecystectomy. Family history is noncontributory.? Social history she is a former smoker. [facility] Medical History (Updated 02/18/23 @ 12:[address] 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 Chronic respiratory failure with hypoxia COPD (chronic obstructive pulmonary disease) Dysphagia Essential hypertension GERD (gastroesophageal reflux disease) History of falling Insomnia, unspecified Iron deficiency anemia Muscle weakness (generalized) Myocardial infarction Obstructive sleep apnea Other displaced fracture of seventh cervical vertebra, subsequent encounter for fracture with routine healing Other displaced fracture of sixth cervical vertebra, subsequent encounter for fracture with routine healing Other lack of coordination Other pancytopenia Personal history of malignant neoplasm of breast Personal history of nicotine dependence Pneumonia Primary osteoarthritis, left shoulder Primary osteoarthritis, right shoulder Pure hypercholesterolemia Respiratory failure with hypoxia Thrombocytopenia Type 2 diabetes mellitus with diabetic neuropathy Unspecified abnormalities of gait and mobility Urinary incontinence Venous insufficiency Venous insufficiency (chronic) (peripheral) Vitamin B12 deficiency Home Medications gabapentin 300 mg capsule 300 mg PO TID Check with primary doctor 11/24/21 [History Last Taken Unknown] losartan 100 mg tablet 100 mg PO DAILY Check with primary doctor 11/24/21 [History Last Taken Unknown] metoprolol succinate 50 mg tablet,extended release 24 hr 50 PO DAILY Check with primary doctor 11/24/21 [History Last Taken Unknown] nystatin 100,000 unit/gram topical cream 1 applic topical BID Check with primarydoctor 11/24/21 [History Last Taken Unknown] omeprazole 20 mg capsule,delayed release 20 mg PO DAILY Check with primary doctor 11/24/21 [History Last Taken Unknown] simvastatin 10 mg tablet 10 mg PO QHS Check with primary doctor 11/24/21 [History Last Taken Unknown] bisacodyl 10 mg rectal suppository 10 mg PA DAILY PRN 11/11/22 [History Last Taken Unknown] cranberry 400 mg capsule 400 mg PO DAILY 11/11/22 [History Last Taken Unknown] cyanocobalamin (vitamin B-12) 1,000 mcg capsule 1,000 mcg PO DAILY 11/11/22 [History Last Taken Unknown] docusate sodium 100 mg capsule 100 mg PO DAILY 11/11/22 [History Last Taken Unknown] ferrous sulfate 200 mg (40 mg iron) tablet PO 11/11/22 [History Last Taken Unknown] folic acid 1 mg tablet 1 mg PO DAILY 11/11/22 [History Last Taken Unknown] glimepiride 1 mg tablet (Amaryl) 1 mg PO DAILY 11/11/22 [History Last Taken Unknown] glucagon 1 mg injection kit mg IM 11/11/22 [History Last Taken Unknown] oxycodone 5 mg capsule 5 mg PO Q6H PRN 11/11/22 [History Last Taken Unknown] Allergy/AdvReac Type Severity Reaction Status Date / Time cyclobenzaprine Allergy Other Verified 02/17/23 22:35 [From Flexeril] tizanidine [From Zanaflex] Allergy Other Verified 02/17/23 22:35 Family History Sister Breast cancer Grandmother Diabetes Surgical History History of lumpectomy of left breast Hx of cervical spine surgery Hx of cholecystectomy Social History (Updated 02/18/23 @ 00:[address] Rebecca Resendiz DO) housing: fpc Smoking Status: Former smoker alcohol intake: never substance use type: does not use ROS ROS Narrative Unobtainable on mechanical ventilation. Physical Exam Narrative Chronically ill-appearing elderly woman who is sleeping on the ventilator but able to open eyes track and respond to commands when stimulated. BMI 33, vital signs noted. HEENT exam shows endotracheal tube in good position with mild 10 creamy secretions easily suctioned and cough. No hemoptysis. Extraoculars are intact. Mucous membranes moist. No neck range of motion was done. Chest is diminished at the left base with no wheezes rales or rhonchi. Consolidation is present. Otherwise clear. Heart normal S1-S2 with no murmurs rubs or gallops Abdomen is soft, nontender, firm, no rebound. Positive bowel sounds no organomegaly. Extremities have no clubbing cyanosis and trace edema Peripheral IVs are intact infusing well without erythema Neuro is grossly nonfocal, unable to test completely with sedation. Moves all 4extremities. Skin is cool and dry. Medical Records Data Attestation: I reviewed the patient's medical records Lab / Micro Data Attestation: I reviewed the patient's lab results. Result Diagrams: 02/18/23 03:40 02/18/23 03:40 Labs: Laboratory Results - last 24 hr 02/17/23 22:28: WBC 10.5, RBC 3.69 L, Hgb 10.1 L, Hct 37.3, MCV 101.1 H, MCH 27.4, MCHC 27.1 L, RDW Std Deviation 55.7 H, RDW Coeff of Amanda 15.0 H, Plt Count 163, MPV 8.4, Immature Gran % (Auto) 2.200 H, Neut % (Auto) 87.0 H, Lymph % (Auto) 6.6 L, Sevier % (Auto) 3.6, Eos % (Auto) 0.2, Baso % (Auto) 0.4, Absolute Neuts (auto) 9.1 H, Absolute Lymphs (auto) 0.69 L, Nucleated RBC % 0.2 02/17/23 22:28: Sodium 145, Potassium 4.1, Chloride 102, Carbon Dioxide 45.0 H, Anion Gap -2 L, BUN 23 H, Creatinine 0.64, Estim Creat Clear Calc 45.09, Est GFR(MDRD) Af Amer 118, Est GFR (MDRD) Non-Af 98, BUN/Creatinine Ratio 36.2 H, Glucose 238 H, Calcium 8.9, Total Bilirubin 0.50, AST 21, ALT 26, Alkaline Phosphatase 99, Troponin I High Sens 13, Total Protein 7.6, Albumin 2.9 L, Globulin 4.7 H, Albumin/Globulin Ratio 0.6 L 02/17/23 22:28: B-Natriuretic Peptide 132.9 H 02/17/23 22:30: Urine Color Yellow, Urine Clarity Sl. Cloudy, Urine pH 5.0, Ur Specific Highland 1.030, Urine Protein 100 H, Urine Glucose (UA) Normal, Urine Ketones Negative, Urine Occult Blood 25 H, Urine Nitrite Negative, Urine Bilirubin Negative, Urine Urobilinogen Normal, Ur Leukocyte Esterase Negative, Urine RBC 0-5 SEEN, Urine WBC 0 SEEN, Ur Squamous Epith Cells 0-5 SEEN, Urine Bacteria 0 SEEN, Hyaline Casts 0-5 SEEN, Coarse Granular Casts 0-5 SEEN, Urine Mucus 0 SEEN 02/17/23 22:30: Urine Opiates Screen NEGATIVE, Urine Methadone Screen NEGATIVE, Ur Barbiturates Screen NEGATIVE, Ur Phencyclidine Scrn NEGATIVE, Ur AmphetaminesScreen NEGATIVE, MDMA (Ecstasy) Screen NEGATIVE, U Benzodiazepines Scrn NEGATIVE, Urine Cocaine Screen NEGATIVE, U Cannabinoids Screen NEGATIVE, Ur DrugScreen Comment 02/17/23 22:32: Ethyl Alcohol < 3.0 02/18/23 02:30: MRSA (PCR) POSITIVE H 02/18/23 03:40: Procalcitonin 0.13 H 02/18/23 03:40: WBC 5.9, RBC 3.37 L, Hgb 9.2 L, Hct 33.1 L, MCV 98.2, MCH 27.3, MCHC 27.8 L, RDW Std Deviation 52.9 H, RDW Coeff of Amanda 14.7 H, Plt Count 116 L,MPV 9.1, Immature Gran % (Auto) 1.000 H, Neut % (Auto) 88.6 H, Lymph % (Auto) 4.5 L, Sevier % (Auto) 5.7, Eos % (Auto) 0.0, Baso % (Auto) 0.2, Absolute Neuts (auto) 5.3, Absolute Lymphs (auto) 0.27 L, Nucleated RBC % 0, Platelet Estimate SLT DEC, Anisocytosis 1+ 02/18/23 03:40: Sodium 146 H, Potassium 3.9, Chloride 101, Carbon Dioxide 42.0 H, Anion Gap 3 L, BUN 29 H, Creatinine 0.80, Estim Creat Clear Calc 56.36, Est GFR (MDRD) Af Amer 91, Est GFR (MDRD) Non-Af 75, BUN/Creatinine Ratio 36.4 H, Glucose 239 H, Calcium 8.9, Magnesium 1.9, Total Bilirubin 0.70, AST 25, ALT 22,Alkaline Phosphatase 88, Total Protein 7.0, Albumin 2.7 L, Globulin 4.3 H, Albumin/Globulin Ratio 0.6 L, TSH 0.74 02/18/23 03:40: Phosphorus 1.3 L 02/18/23 03:40: Triglycerides 128 02/18/23 03:40: Total Creatine Kinase 55 Micro: Microbiology 02/17/23 22:33 Urine Catheter - Barnes Legionella Antigen - Final 02/17/23 22:33 Urine Catheter - Catheter Streptococcus pneumoniae Antigen (M- Final 02/17/23 22:35 Nasal Secretion SARS-CoV-2 & FLU Antigen (Rapid) - Final ABG Data ABG results: ABG 02/17/23 02/18/23 02/18/23 22:45 02:07 08:39 Specimen Type ART ART ART Sample Site L RADIAL R Radial L Radial pH 7.34 L 7.52 H 7.66 H* Bicarbonate Actual 51.8 H 42.5 H 40.4 H Total CO2 > 50 44 42 Base Excess 26 H 20 H 20 H O2 Saturation 88 L 87 L 98 O2 % 60 50 35 ABG pCO2 96.6 H* 51.6 H 36.3 ABG pO2 64 L 49 L 79 Jovon Test POS Positive Positive Respiration Rate 16 16 16 O2 Delivery Device Vent ET Tube Adult Vent Vent Mode AC/VC AC AC Tidal Volume 450 450 375 POC PEEP 5 5 7 Crit Call To/Read Back Yes Yes Blood Gas Notified Whom ED MD MONIQUE Blood Gas Notified Time 2244 Rhythm Strip Rhythm Strip: Sinus Rhythm Rate: 95 Ectopy: None Radiology Impression Brain CT 02/17/23 22:26 IMPRESSION: 1. No evidence of acute intracranial pathology. 2. Diffuse involutional changes and chronic ischemic small vessel white matter disease. AIDOC was utilized to assist in identifying pertinent positive findings. Electronically Signed: Calvin Botello MD at 0:04 EDT , Chest X-Ray 02/17/23 22:26 IMPRESSION: 1. Dense left pleural parenchymal disease with pleural effusion not excluded. 2. Atelectasis versus infiltrate at the right lung base. 3. Satisfactory position of support devices. Electronically Signed: Calvin Botello MD at 0:01 EDT , Chest CT 02/18/23 00:14 IMPRESSION: 1. Bilateral lower lobe consolidation consistent with pneumonia. 2. Small bilateral pleural effusions. 3. Lingular atelectasis versus infiltrate. 4. 4 mm right upper lobe pulmonary nodule. Per Fleischner criteria, if the patient has increased risk factors for lung cancer, recommend follow-up CT of the chest in 12 months. Otherwise no follow-up is recommended. 5. 2.5 cm and 1.6 cm left adrenal gland nodules with indeterminate attenuation values. Per ACR White Paper, recommend follow-up with nonemergent adrenal CT. 6. Cardiomegaly. 7. 1.3 cm asymmetric density in the anterior left breast. Consider follow-up with diagnostic mammography. Electronically Signed: Basim Leija DO at 2:02 EDT , Charges/Coding Procedures Hospitalists Procedures: 58025 Critial Care 1st Hr 02/18/23 1241 <Electronically signed by Martín Monique MD> Cosigner Signature (if applicable): CC: FARM MACHINERY ENGINE MECHANIC-C Viji Richey; FARM MACHINERY ENGINE MECHANIC-C Barber Carl[place]; Dr. Serge Banks MD; Dr. Ajit Mcgill DO; Dr. Thomas Ahumada MD; Dr. Rebecca Resendiz DO; Dr. Martín Monique MD; Dr. Krzysztof Pennington MD~ Signed [facility] Work Phone: [phone]) 786-772004-07-[address] Padron [facility] February 18, 2023 8:24am Note Date/Time February 18, 2023 7:16 am [facility] Medical Records Department [address] [place] [address] Progress Note - Hospitalist 02/18/23711 MR#: [id number] Acct: [id number] Name: POLI RAMIREZ Rep #:[id number] : 1950 72 From: Hernando Padron MD PCP: ARLENE Edmonds Status:ADM I N Location: ICU ICU03-1 Reason for Visit Reason for Visit: Diagnoses Metabolic encephalopathy (02/18/23) Acute and chronic respiratory failure with hypoxia (02/18/23) Acute and chronic respiratory failure with hypercapnia (02/18/23) Localized edema (02/18/23) Hyperglycemia, unspecified (02/18/23) Subjective Subjective Patient is a 72-year-old lady resident is an ECF was found unresponsive and hypoxic. An assessment of acute on chronic hypoxic and hypercapnic respiratory failure made patient intubated in the emergency department and subsequently transferred to the intensive care unit Objective Data Objective Data Vital Signs: Vital Signs Temp Pulse Resp BP Pulse Ox O2 Del Method FiO2 100.3 F H 110 H 16 101/54 L 97 Mechanical Ventilator 50 02/18/23 07:00 02/18/23 07:00 02/18/23 07:00 02/18/23 07:00 02/18/23 07:00 02/18/23 07:00 02/18/23 07:00 Oxygen Delivery Method Mechanical Ventilator Weight: 90.9 kg Body Mass Index (BMI) 33.3 Intake & Output: Intake and Output for Last 24 Hours 02/16/23 02/17/23 02/18/23 23:59 23:59 23:59 Intake Total 1030.02 / 1030.02 Output Total 1000 / 1000 Balance 30. / . Lab / Micro Data Result Diagrams: 02/18/23 03:40 02/18/23 03:40 Labs: Laboratory Results - last 24 hr 02/17/23 22:28: WBC 10.5, RBC 3.69 L, Hgb 10.1 L, Hct 37.3, MCV 101.1 H, MCH 27.4, MCHC 27.1 L, RDW Std Deviation 55.7 H, RDW Coeff of Amanda 15.0 H, Plt Count 163, MPV 8.4, Immature Gran % (Auto) 2.200 H, Neut % (Auto) 87.0 H, Lymph % (Auto) 6.6 L, Sevier % (Auto) 3.6, Eos % (Auto) 0.2, Baso % (Auto) 0.4, Absolute Neuts (auto) 9.1 H, Absolute Lymphs (auto) 0.69 L, Nucleated RBC % 0.2 02/17/23 22:28: Sodium 145, Potassium 4.1, Chloride 102, Carbon Dioxide 45.0 H, Anion Gap -2 L, BUN 23 H, Creatinine 0.64, Estim Creat Clear Calc 45.09, Est GFR(MDRD) Af Amer 118, Est GFR (MDRD) Non-Af 98, BUN/Creatinine Ratio 36.2 H, Glucose 238 H, Calcium 8.9, Total Bilirubin 0.50, AST 21, ALT 26, Alkaline Phosphatase 99, Troponin I High Sens 13, Total Protein 7.6, Albumin 2.9 L, Globulin 4.7 H, Albumin/Globulin Ratio 0.6 L 02/17/23 22:28: B-Natriuretic Peptide 132.9 H 02/17/23 22:30: Urine Color Yellow, Urine Clarity Sl. Cloudy, Urine pH 5.0, Ur Specific Highland 1.030, Urine Protein 100 H, Urine Glucose (UA) Normal, Urine Ketones Negative, Urine Occult Blood 25 H, Urine Nitrite Negative, Urine Bilirubin Negative, Urine Urobilinogen Normal, Ur Leukocyte Esterase Negative, Urine RBC 0-5 SEEN, Urine WBC 0 SEEN, Ur Squamous Epith Cells 0-5 SEEN, Urine Bacteria 0 SEEN, Hyaline Casts 0-5 SEEN, Coarse Granular Casts 0-5 SEEN, Urine Mucus 0 SEEN 02/17/23 22:30: Urine Opiates Screen NEGATIVE, Urine Methadone Screen NEGATIVE, Ur Barbiturates Screen NEGATIVE, Ur Phencyclidine Scrn NEGATIVE, Ur AmphetaminesScreen NEGATIVE, MDMA (Ecstasy) Screen NEGATIVE, U Benzodiazepines Scrn NEGATIVE, Urine Cocaine Screen NEGATIVE, U Cannabinoids Screen NEGATIVE, Ur DrugScreen Comment 02/17/23 22:32: Ethyl Alcohol < 3.0 02/18/23 02:30: MRSA (PCR) POSITIVE H 02/18/23 03:40: Procalcitonin 0.13 H 02/18/23 03:40: WBC 5.9, RBC 3.37 L, Hgb 9.2 L, Hct 33.1 L, MCV 98.2, MCH 27.3, MCHC 27.8 L, RDW Std Deviation 52.9 H, RDW Coeff of Amanda 14.7 H, Plt Count 116 L,MPV 9.1, Immature Gran % (Auto) 1.000 H, Neut % (Auto) 88.6 H, Lymph % (Auto) 4.5 L, Sevier % (Auto) 5.7, Eos % (Auto) 0.0, Baso % (Auto) 0.2, Absolute Neuts (auto) 5.3, Absolute Lymphs (auto) 0.27 L, Nucleated RBC % 0, Platelet Estimate SLT DEC, Anisocytosis 1+ 02/18/23 03:40: Sodium 146 H, Potassium 3.9, Chloride 101, Carbon Dioxide 42.0 H, Anion Gap 3 L, BUN 29 H, Creatinine 0.80, Estim Creat Clear Calc 56.36, Est GFR (MDRD) Af Amer 91, Est GFR (MDRD) Non-Af 75, BUN/Creatinine Ratio 36.4 H, Glucose 239 H, Calcium 8.9, Magnesium 1.9, Total Bilirubin 0.70, AST 25, ALT 22,Alkaline Phosphatase 88, Total Protein 7.0, Albumin 2.7 L, Globulin 4.3 H, Albumin/Globulin Ratio 0.6 L, TSH 0.74 02/18/23 03:40: Phosphorus 1.3 L 02/18/23 03:40: Triglycerides 128 02/18/23 03:40: Total Creatine Kinase 55 Micro: Microbiology 02/17/23 22:33 Urine Catheter - Barnes Legionella Antigen - Final 02/17/23 22:33 Urine Catheter - Catheter Streptococcus pneumoniae Antigen (M- Final 02/17/23 22:35 Nasal Secretion SARS-CoV-2 & FLU Antigen (Rapid) - Final ABG Data ABG results: ABG 02/17/23 02/18/23 22:45 02:07 Specimen Type ART ART Sample Site L RADIAL R Radial pH 7.34 L 7.52 H Bicarbonate Actual 51.8 H 42.5 H Total CO2 > 50 44 Base Excess 26 H 20 H O2 Saturation 88 L 87 L O2 % 60 50 ABG pCO2 96.6 H* 51.6 H ABG pO2 64 L 49 L Jovon Test POS Positive Respiration Rate 16 16 O2 Delivery Device Vent ET Tube Vent Mode AC/VC AC Tidal Volume 450 450 POC PEEP 5 5 Crit Call To/Read Back Yes Blood Gas Notified Whom ED Blood Gas Notified Time 2249 Radiography Diagnostic Testing: Radiology Impression Brain CT 02/17/23 22:26 IMPRESSION: 1. No evidence of acute intracranial pathology. 2. Diffuse involutional changes and chronic ischemic small vessel white matter disease. AIDOC was utilized to assist in identifying pertinent positive findings. Electronically Signed: Calvin Botello MD at 0:04 EDT Reading Location ID and State: [id number] / [place] Tel , Service support , Chest X-Ray 02/17/23 22:26 IMPRESSION: 1. Dense left pleural parenchymal disease with pleural effusion not excluded. 2. Atelectasis versus infiltrate at the right lung base. 3. Satisfactory position of support devices. Electronically Signed: Calvin Botello MD at 0:01 EDT , Chest CT 02/18/23 00:14 IMPRESSION: 1. Bilateral lower lobe consolidation consistent with pneumonia. 2. Small bilateral pleural effusions. 3. Lingular atelectasis versus infiltrate. 4. 4 mm right upper lobe pulmonary nodule. Per Fleischner criteria, if the patient has increased risk factors for lung cancer, recommend follow-up CT of the chest in 12 months. Otherwise no follow-up is recommended. 5. 2.5 cm and 1.6 cm left adrenal gland nodules with indeterminate attenuation values. Per ACR White Paper, recommend follow-up with nonemergent adrenal CT. 6. Cardiomegaly. 7. 1.3 cm asymmetric density in the anterior left breast. Consider follow-up with diagnostic mammography. Electronically Signed: Basim Leija DO at 2:02 EDT , Rhythm Strip Rhythm Strip: Sinus Rhythm Rate: 95 Ectopy: None Physical Exam Narrative GENERAL: Awake on the vent HEENT: Atraumatic; normocephalic EYES; Anicteric, Normal Conjunctiva NECK; supple, normal thyroid, RESPIRATORY: Diminished to auscultation CARDIOVASCULAR: Regular S1 S2, GI: soft, normoactive bowel sounds, : No Renal angle tenderness; EXTREMITIES: No edema, no clubbing, MUSCULOSKELETAL: no muscle wasting NEURO: Awake; no lateralizing signs. SKIN: No Rash PSYCH; Flat affect Assessment & Plan Assessment/Plan (1) Metabolic encephalopathy: (2) Acute on chronic respiratory failure with hypoxia and hypercapnia: (3) Hyperglycemia: (4) Lower extremity edema: PLAN: Plan Patient is a 72-year-old lady resident is an ECF was found unresponsive and hypoxic. An assessment of acute on chronic hypoxic and hypercapnic respiratory failure made patient intubated in the emergency department and subsequently transferred to the intensive care unit 1. Acute on chronic hypoxic respiratory failure ? Secondary to combination of pneumonia and possible CHF 2. Suspected pneumonia with MDR's ? Admitted to the intensive care unit patient presented in respiratory failure currently on broad-spectrum antibiotic therapy with Zosyn and vancomycin cultures sent we will follow-up on result 3. Acute congestive heart failure (unspecified) ? Patient did receive Lasix. Echo ordered for EF assess 4. Acute metabolic encephalopathy ? Secondary to CO2 narcosis. Patient level of sensorium improving 5. Diabetes mellitus type II -patient's oral hypoglycemics held. Placed on long acting insulin, Accu-Cheks a.c. and at bedtime and covered with sliding scale insulin 6. Anemia - Secondary to chronic disorder monitoring H&H and transfuse if patient becomes symptomatic or hemoglobin falls below 7 -Continue home iron 7. Diabetic polyneuropathy ? Patient is on gabapentin held 8. Essential hypertension ? Antihypertensives held 9. GERD ? Patient is on PPI 10. Chronic thrombocytopenia ? Monitoring with daily platelet levels 11. Dyslipidemia -Patient is on statin therapy, continued at home dose 12. Cervical spine fracture of sixth and seventh cervical vertebrae. Appears oren stable; reason she was in a nursing facility at this time. PT/OT consultation 13. Class I obesity with BMI of 33 ? Complicating care 14. Obstructive sleep apnea ? PAP therapy at bedtime 14. DVT prophylaxis -Lovenox daily 40 mg Time spent in the patient's overall evaluation,decision-making process, review of diagnostic data, adjustment of management, discussion with other providers, nursing nursing and ancillary staff involved in patient's care documentation, 55 Minutes Charges/Coding Visit Charges Inpatient E&M: 26696 Subs Hosp L3 02/18/23 0824 <Electronically signed by Hernando Padron MD> Cosigner Signature (if applicable): CC: ~ Signed [facility] Work Phone: [phone]) 616-602604-07-2023 Consult note Author Armani Napier [facility] February 18, 2023 4:15am Note Date/Time February 18, 2023 4:15 am [facility] Medical Records Department [address] [facility] [place] [address] Pharmacokinetic/Renal -Consult 02/18/23 0414 MR#: [id number] Acct: [id number] Name: POLI RAMIREZ Rep #:[id number] : 1950 72 From: Armani Valdez od PCP: ARLENE Edmonds Status:ADM I N Y Location: ICU ICU03-1 Consult Pharmacy has been consulted to manage selected antiobiotic: Vancomycin Type of Consult: New start Microbiology: Microbiology 02/17/23 22:35 Nasal Secretion SARS-CoV-2 & FLU Antigen (Rapid) - Final Goal Trough: 15-20 mcg/mL Pharmacy Plan for Drug Dosing: Pharmacy Service will continue to monitor and adjust dosing as required. Medications Vancomycin HCl (Vancomycin) 1,000 mg in 200 mls @ 200 mls/hr IV Q12H DIONY Discontinued Medications Vancomycin HCl 1,500 mg/ (Sodium Chloride) 530 mls @ 250 mls/hr IV X1 ONE Stop: 02/18/23 04:07 Last Admin: 02/18/23 03:42 Dose: 250 mls/hr Follow-Up Labs: Trough Vancomycin Labs to be done on [date and time ordered]: 02/19 @ 1530 02/18/23 0415 <Electronically signed by Armani bolaños > Date _ Armani Napier Cosigner Signature (if applicable): Date CC: ~ Signed [facility] Work Phone: [phone]) 491-280004-07-2023 History and physical note Author Dr. Resendiz [facility] February 18, 2023 1:48am Note Date/Time February 18, 2023 12:3 2am [facility] Medical Records Department [address] [place] [address] H&P Exam - Hospitalist 02/18/23 0029 MR#: [id number] Acct: [id number] Name: POLI RAMIREZ Rep #:[id number] : 1950 72 From: Rebecca Resendiz DO PCP: ARLENE Edmonds Status:ADM I N Location: ICU ICU03-1 HPI - General General Date of Admission: 02/18/23 Date of Service: 02/18/23 Chief Complaint: Unresponsiveness HPI Narrative POLI RAMIREZ, is a 72 F who presented to the emergency department at [facility] secondary to unresponsiveness. The patient was found to be unresponsive by the [facility] staff at where she lives. Upon presentation she was barely breathing and found to be hypoxic in the 70s. GCS was 3. They gave Narcan without any response and bagged her in route to the emergency department. There was paperwork signed that stated that she was a DNR but intubation status was not clarified and no family was present so she was intubated. Oxygen saturation upon presentation to the emergency department was 60%. She was last seen normal about 3 hours prior to evaluation. She had an extensive stay here from November 24, 2021 through December 01, 2021 with a similar presentation at that time. At that time she had COVID-pneumonia. At the time of my evaluation she was intubated and was not able to participate in any history. Vital signs on presentation demonstrated temperature of 96.3, heart rate 96, blood pressure 111/55, respiratory rate was 14, oxygen saturation was 60% on transfer from the cot and improved to 92% with 100% Ambu bag. She was emergently intubated and at saturations have been anywhere from 94 to 100% sinceshe was intubated. No sedation was required for intubation. Her CBC shows a normal white count however she does have a left shift with an 87% neutrophilia and chronic stable anemia. Platelet count is normal. A postintubation ABG was obtained and she had a pH of 7.34 with a PCO2 of 96.6 and a PO2 of 64 on 100% mechanical ventilation. Her chemistry panel showed normal electrolytes but she has a serum bicarb of 45.0 this appears to be close to her baseline indicating she likely has chronic hypercapnia. Serum glucose was 238. Liver functions were normal. BNP was slightly elevated at 132.9 and her urine was unremarkable for any signs of infection. CT of the brain demonstrated no evidence of acute intracranial pathology however did show diffuse involutional changes and chronicischemic small vessel changes. Chest x-ray showed dense left pleural parenchymal disease with possible pleural fluid fusion, atelectasis versus infiltrate in the right lung base and satisfactory position of the ET tube. Toxicology screen was unremarkable. EKG showed normal sinus rhythm with normal PA interval however she has slightly prolonged QTc. No signs of ischemic changes were noted. 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 Chronic respiratory failure with hypoxia COPD (chronic obstructive pulmonary disease) Dysphagia Essential hypertension GERD (gastroesophageal reflux disease) History of falling Insomnia, unspecified Iron deficiency anemia Muscle weakness (generalized) Myocardial infarction Obstructive sleep apnea Other displaced fracture of seventh cervical vertebra, subsequent encounter for fracture with routine healing Other displaced fracture of sixth cervical vertebra, subsequent encounter for fracture with routine healing Other lack of coordination Other pancytopenia Personal history of malignant neoplasm of breast Personal history of nicotine dependence Primary osteoarthritis, left shoulder Primary osteoarthritis, right shoulder Pure hypercholesterolemia Respiratory failure with hypoxia Thrombocytopenia Type 2 diabetes mellitus with diabetic neuropathy Unspecified abnormalities of gait and mobility Urinary incontinence Venous insufficiency Venous insufficiency (chronic) (peripheral) Vitamin B12 deficiency Home Medications gabapentin 300 mg capsule 300 mg PO TID Check with primary doctor 11/24/21 [History Last Taken Unknown] losartan 100 mg tablet 100 mg PO DAILY Check with primary doctor 11/24/21 [History Last Taken Unknown] metoprolol succinate 50 mg tablet,extended release 24 hr 50 PO DAILY Check with primary doctor 11/24/21 [History Last Taken Unknown] nystatin 100,000 unit/gram topical cream 1 applic topical BID Check with primarydoctor 11/24/21 [History Last Taken Unknown] omeprazole 20 mg capsule,delayed release 20 mg PO DAILY Check with primary doctor 11/24/21 [History Last Taken Unknown] simvastatin 10 mg tablet 10 mg PO QHS Check with primary doctor 11/24/21 [History Last Taken Unknown] bisacodyl 10 mg rectal suppository 10 mg PA DAILY PRN 11/11/22 [History Last Taken Unknown] cranberry 400 mg capsule 400 mg PO DAILY 11/11/22 [History Last Taken Unknown] cyanocobalamin (vitamin B-12) 1,000 mcg capsule 1,000 mcg PO DAILY 11/11/22 [History Last Taken Unknown] docusate sodium 100 mg capsule 100 mg PO DAILY 11/11/22 [History Last Taken Unknown] ferrous sulfate 200 mg (40 mg iron) tablet PO 11/11/22 [History Last Taken Unknown] folic acid 1 mg tablet 1 mg PO DAILY 11/11/22 [History Last Taken Unknown] glimepiride 1 mg tablet (Amaryl) 1 mg PO DAILY 11/11/22 [History Last Taken Unknown] glucagon 1 mg injection kit mg IM 11/11/22 [History Last Taken Unknown] oxycodone 5 mg capsule 5 mg PO Q6H PRN 11/11/22 [History Last Taken Unknown] Allergy/AdvReac Type Severity Reaction Status Date / Time cyclobenzaprine Allergy Other Verified 02/17/23 22:35 [From Flexeril] tizanidine [From Zanaflex] Allergy Other Verified 02/17/23 22:35 Family History Sister Breast cancer Grandmother Diabetes Surgical History History of lumpectomy of left breast Hx of cervical spine surgery Hx of cholecystectomy Social History (Updated 02/18/23 @ 00:[address] Rebecca Resendiz DO) housing: fpc Smoking Status: Former smoker alcohol intake: never substance use type: does not use ROS Review of Systems ROS Unobtainable: due to endotracheal tube and due to mental status Vital Signs Vital Signs Vital Signs: 02/17/23 22:17 02/17/23 22:24 02/17/23 22:42 Temperature 96.3 F L Temperature Source Temporal Pulse Rate 96 89 Respiratory Rate 14 20 H Respiratory Pattern Blood Pressure 111/55 L 106/68 Blood Pressure Mean 73 80 Pulse Ox 92 91 94 Oxygen Delivery Method Ambu-Bag Ambu-Bag Mechanical Ventilator Fraction of Inspired Oxygen (FIO2) 02/17/23 23:37 02/17/23 22:25 Temperature Temperature Source Pulse Rate 82 Respiratory Rate 18 17 Respiratory Pattern Normal Blood Pressure 115/69 Blood Pressure Mean 84 Pulse Ox 97 Oxygen Delivery Method Mechanical Ventilator Fraction of Inspired Oxygen (FIO2) 100 Weight Weight: 92.3 kg Body Mass Index (BMI) 33.8 Physical Exam Const no apparent distress and well nourished Constitutional Narrative: Intubated, elderly, white female, lying in bed, no sedation, opens eyes to name and intermittently follows commands, appears comfortable and nontoxic at this time HEENT normocephalic, head/scalp atraumatic and moist oral mucous membranes HEENT Narrative: ET tube in place Eyes PERRL, EOMs intact bilaterally and conjunctivae normal Eyes Narrative: No scleral icterus Neck no lymphadenopathy, supple, no JVD and no carotid bruits Neck Narrative: Trachea midline Resp normal respiratory effort, no retractions, no use of accessory muscles and clearto auscultation bilaterally Resp Narrative: Mechanically ventilated Auscultation: Negative for rales, rhonchi or wheezes Cardio regular rate, regular rhythm, S1 normal heart sound, S2 normal heart sound, no murmurs, no rub, no gallops and no clicks GI normal to inspection, nondistended, normoactive bowel sounds, soft to palpation and non-tender Extremity Extremity Narrative: No cyanosis or clubbing, distal bilateral lower extremity pitting edema 1+ Skin no rashes or lesions noted, no wounds, skin turgor normal, no jaundice, no petechiae and no mottling Neuro Neuro Narrative: Intubated and sedated however patient is moving all extremities spontaneously and opens eyes to name Psych Psych Narrative: Unable to assess Results Lab / Micro Data Result Diagrams: 02/17/23 22:28 02/17/23 22:28 Labs: Laboratory Results - last 24 hr 02/17/23 22:28: WBC 10.5, RBC 3.69 L, Hgb 10.1 L, Hct 37.3, MCV 101.1 H, MCH 27.4, MCHC 27.1 L, RDW Std Deviation 55.7 H, RDW Coeff of Amanda 15.0 H, Plt Count 163, MPV 8.4, Immature Gran % (Auto) 2.200 H, Neut % (Auto) 87.0 H, Lymph % (Auto) 6.6 L, Sevier % (Auto) 3.6, Eos % (Auto) 0.2, Baso % (Auto) 0.4, Absolute Neuts(auto) 9.1 H, Absolute Lymphs (auto) 0.69 L, Nucleated RBC % 0.2 02/17/23 22:28: Sodium 145, Potassium 4.1, Chloride 102, Carbon Dioxide 45.0 H, Anion Gap -2 L, BUN 23 H, Creatinine 0.64, Estim Creat Clear Calc 45.09, Est GFR(MDRD) Af Amer 118, Est GFR (MDRD) Non-Af 98, BUN/Creatinine Ratio 36.2 H, Glucose 238 H, Calcium 8.9, Total Bilirubin 0.50, AST 21, ALT 26, Alkaline Phosphatase 99, Troponin I High Sens 13, Total Protein 7.6, Albumin 2.9 L, Globulin 4.7 H, Albumin/Globulin Ratio 0.6 L 02/17/23 22:30: Urine Color Yellow, Urine Clarity Sl. Cloudy, Urine pH 5.0, Ur Specific Highland 1.030, Urine Protein 100 H, Urine Glucose (UA) Normal, Urine Ketones Negative, Urine Occult Blood 25 H, Urine Nitrite Negative, Urine Bilirubin Negative, Urine Urobilinogen Normal, Ur Leukocyte Esterase Negative, Urine RBC 0-5 SEEN, Urine WBC 0 SEEN, Ur Squamous Epith Cells 0-5 SEEN, Urine Bacteria 0 SEEN, Hyaline Casts 0-5 SEEN, Coarse Granular Casts 0-5 SEEN, Urine Mucus 0 SEEN 02/17/23 22:30: Urine Opiates Screen NEGATIVE, Urine Methadone Screen NEGATIVE, Ur Barbiturates Screen NEGATIVE, Ur Phencyclidine Scrn NEGATIVE, Ur AmphetaminesScreen NEGATIVE, MDMA (Ecstasy) Screen NEGATIVE, U Benzodiazepines Scrn NEGATIVE, Urine Cocaine Screen NEGATIVE, U Cannabinoids Screen NEGATIVE, Ur DrugScreen Comment 02/17/23 22:32: Ethyl Alcohol < 3.0 Micro: Microbiology 02/17/23 22:35 Nasal Secretion SARS-CoV-2 & FLU Antigen (Rapid) - Final Rhythm Strip Rhythm Strip: Sinus Rhythm Rate: 95 Ectopy: None Radiology Impression Brain CT 02/17/23 22:26 IMPRESSION: 1. No evidence of acute intracranial pathology. 2. Diffuse involutional changes and chronic ischemic small vessel white matter disease. AIDOC was utilized to assist in identifying pertinent positive findings. Electronically Signed: Calvin Botello MD at 0:04 EDT , Chest X-Ray 02/17/23 22:26 IMPRESSION: 1. Dense left pleural parenchymal disease with pleural effusion not excluded. 2. Atelectasis versus infiltrate at the right lung base. 3. Satisfactory position of support devices. Electronically Signed: Calvin Botello MD at 0:01 EDT , Assessment & Plan Assessment/Plan (1) Metabolic encephalopathy: (2) Acute on chronic respiratory failure with hypoxia and hypercapnia: (3) Hyperglycemia: (4) Lower extremity edema: PLAN: Plan Acute on chronic hypoxic and hypercapnic respiratory failure -Etiology is unclear at this time however suspect baseline CO2 retention with possible pneumonia -CT of the chest is pending -We will start vancomycin and Zosyn -Obtain sputum culture -Lasix 40 mg IV push x1 dose with mildly elevated BNP and lower extremity edema -COVID and flu are negative -Check respiratory viral panel -Check strep pneumo Legionella antigens -Blood cultures are pending -Check procalcitonin -Continue mechanical ventilation -Suspect baseline PCO2 is in the 80s -Consult pulmonary medicine -Patient should be extubated to BiPAP and be evaluated for ongoing BiPAP use prior to discharge -Consult pulmonary medicine/critical care Bilateral lower extremity edema -Check bilateral lower extremity Dopplers especially with recent immobility -Lasix 40 mg x 1 dose Toxic/metabolic encephalopathy -Likely related to CO2 narcosis -Mental status is already improving since intubation -Continue to monitor -Avoid sedating medications DM-2 with hyperglycemia -Hold home glimepiride -SSI -Accu-Cheks every 6 Chronic anemia -Patient follows as an outpatient with hematology -Has had bone marrow biopsy that was overall unremarkable -Continue home iron Diabetic neuropathy -On gabapentin at baseline -Hold for now with mental status HTN -We will hold antihypertensives for now -Ongoing evaluation for reinitiation GERD -Hold home omeprazole -IV Protonix Hyperlipidemia -Continue home statin Thrombocytopenia -Appears to be chronic and ongoing since 2013 -Follows with hematology -Currently normal Cervical spine fracture of sixth and seventh cervical vertebrae -Appears to be stable -This is the reason she was in a nursing facility at this time -PT/OT consultation -Data available for more details and patient unable to provide Obesity -BMI 33.9 -Recommend weight loss -Complicates treatment, provokes his, outcomes LUISA -Unclear if patient uses BiPAP/CPAP -We will need to evaluate when she is extubated or family is available to discuss DVT prophylaxis -Lovenox daily 40 mg CODE STATUS -Paperwork for DNR [facility] however patient was intubated in the emergency departmentdue to intubation status being unclear therefore CODE STATUS is currently unclear and no family members are available for discussion -We will leave full code unverified however will need further discussion to verify absolute CODE STATUS in the morning Charges/Coding Visit Charges Inpatient E&M: 11621 Init Hosp L3 02/18/23 0148 <Electronically signed by Rebecca Resendiz DO> Cosigner Signature (if applicable): CC: ARLENE Carlisle; Dr. Rebecca Resendiz DO~ Signed [facility] Work Phone: [phone] Tsai [facility] February 18, 2023 12:19am Note Date/Time February 17, 2023 10:3 4pm [facility] Medical Records Department [address] [address] Emergency Department Summary 02/17/23 MR#: [id number] Acct: [id number] Name: POLI RAMIREZ Rep #:[id number] : 1950 72 From: Ellis Tsai MD PCP: ARLENE Edmonds Status:REG E R Location: ED HPI History of Present Illness Chief Complaint: Unresponsive Informant: EMS Narrative Narrative: Patient brought from local [facility] found unresponsive by [facility]pc staff. Barely breathing, hypoxic in the 70s according to EMS, for them upon evaluation she has been a GCS of 3. They gave Narcan, they do not have a medication list for her, she had no response to Narcan 2 mg IV. They continued to bag her in route. They did an EKG, they did not send a prehospital but they are showing it to me upon evaluation, she has some lateral depressions and the EKG is suggesting a STEMI but it contains artifact. Patient does have signed paperwork saying that she is DNR [facility] but there are no other specifications or desires and there is no family here. Pulse ox 60% upon transfer to our cot fromEMS and patient not breathing. Last seen normal about 3 hours prior to evaluation here. Apparently she is in a fpc for rehab after a neck fracture. She does not have any collar or cervical spine hardware. EMS also states that family wasapparently there yesterday, and the fpc staff was suspicious that they may be in the drugs. [facility] Medical History (Updated 02/18/23 @ 00:[address] 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 Chronic respiratory failure with hypoxia COPD (chronic obstructive pulmonary disease) Dysphagia Essential hypertension GERD (gastroesophageal reflux disease) History of falling Insomnia, unspecified Muscle weakness (generalized) Myocardial infarction Obstructive sleep apnea Other displaced fracture of seventh cervical vertebra, subsequent encounter for fracture with routine healing Other displaced fracture of sixth cervical vertebra, subsequent encounter for fracture with routine healing Other lack of coordination Other pancytopenia Personal history of malignant neoplasm of breast Personal history of nicotine dependence Primary osteoarthritis, left shoulder Primary osteoarthritis, right shoulder Pure hypercholesterolemia Respiratory failure with hypoxia Type 2 diabetes mellitus with diabetic neuropathy Unspecified abnormalities of gait and mobility Urinary incontinence Venous insufficiency Venous insufficiency (chronic) (peripheral) Home Medications gabapentin 300 mg capsule 300 mg PO TID Check with primary doctor 11/24/21 [History Last Taken Unknown] losartan 100 mg tablet 100 mg PO DAILY Check with primary doctor 11/24/21 [History Last Taken Unknown] metoprolol succinate 50 mg tablet,extended release 24 hr 50 PO DAILY Check with primary doctor 11/24/21 [History Last Taken Unknown] nystatin 100,000 unit/gram topical cream 1 applic topical BID Check with primarydoctor 11/24/21 [History Last Taken Unknown] omeprazole 20 mg capsule,delayed release 20 mg PO DAILY Check with primary doctor 11/24/21 [History Last Taken Unknown] simvastatin 10 mg tablet 10 mg PO QHS Check with primary doctor 11/24/21 [History Last Taken Unknown] bisacodyl 10 mg rectal suppository 10 mg PA DAILY PRN 11/11/22 [History Last Taken Unknown] cranberry 400 mg capsule 400 mg PO DAILY 11/11/22 [History Last Taken Unknown] cyanocobalamin (vitamin B-12) 1,000 mcg capsule 1,000 mcg PO DAILY 11/11/22 [History Last Taken Unknown] docusate sodium 100 mg capsule 100 mg PO DAILY 11/11/22 [History Last Taken Unknown] ferrous sulfate 200 mg (40 mg iron) tablet PO 11/11/22 [History Last Taken Unknown] folic acid 1 mg tablet 1 mg PO DAILY 11/11/22 [History Last Taken Unknown] glimepiride 1 mg tablet (Amaryl) 1 mg PO DAILY 11/11/22 [History Last Taken Unknown] glucagon 1 mg injection kit mg IM 11/11/22 [History Last Taken Unknown] oxycodone 5 mg capsule 5 mg PO Q6H PRN 11/11/22 [History Last Taken Unknown] Allergy/AdvReac Type Severity Reaction Status Date / Time cyclobenzaprine Allergy Other Verified 02/17/23 22:35 [From Flexeril] tizanidine [From Zanaflex] Allergy Other Verified 02/17/23 22:35 Family History Sister Breast cancer Grandmother Diabetes Surgical History History of lumpectomy of left breast Hx of cervical spine surgery Hx of cholecystectomy Social History Smoking Status: Former smoker EXAM Physical Exam Const Vital Signs: 02/17/23 22:17 02/17/23 22:24 02/17/23 22:42 Temperature 96.3 F L Temperature Source Temporal Pulse Rate 96 89 Respiratory Rate 14 20 H Respiratory Pattern Blood Pressure 111/55 L 106/68 Blood Pressure Mean 73 80 Pulse Ox 92 91 94 Oxygen Delivery Method Ambu-Bag Ambu-Bag Mechanical Ventilator Fraction of Inspired Oxygen (FIO2) 02/17/23 23:37 02/17/23 22:25 Temperature Temperature Source Pulse Rate 82 Respiratory Rate 18 17 Respiratory Pattern Normal Blood Pressure 115/69 Blood Pressure Mean 84 Pulse Ox 97 Oxygen Delivery Method Mechanical Ventilator Fraction of Inspired Oxygen (FIO2) 100 Positive well nourished, well developed and obese Constitutional Narrative: Obtunded General Appearance ED: well developed Nutritional Appearance: obese HEENT Reports moist mucous membranes HEENT Narrative: No excessive secretions normocephalic and atraumatic Eyes Eyes Narrative: Pupils 3 mm, sluggish, equal bilaterally Neck supple Chest Wall inspection of chest normal and palpation of chest normal Resp Resp Narrative: Poor respiratory effort, very shallow occasional breaths but for the most part apneic. Trachea midline. Equal breath sounds with bagging bilaterally and otherwise clear. Cardio regular rate, regular rhythm and no murmurs GI non-distended Palpation: soft Back/Spine no CVA tenderness General Back: other FROM Extremity normal to inspection General Extremety ED: Negative for edema, pulses abnormal or tenderness General Extremity: Negative for edema or pulses abnormal Neuro Neuro Narrative: Obtunded, flaccid, GCS 3. No response to painful stimulation anywhere. Skin no rashes or lesions noted and no wounds MDM MDM MDM Narrative Medical decision making narrative: Given that the patient DOES NOT have any paperwork that says DO NOT INTUBATE, and she does not have any documented diagnoses of a terminal illness, we intubated her given her profound hypoxemia and borderline apnea. While preppingfor this, EMS personnel continued to bag her which I supervised, and was able toget her up to 91%. She was then intubated without pretreatment see the procedure note, this was uncomplicated and chest x-ray 1 view on my interpretation shows good ETT placement. It also appears to show cardiomegaly, limited evaluation of retrocardiac space, but this is no different compared withher old 1. I had respiratory do an ABG relatively quick after we intubated her,he was not able to get arterial sample but I was okay with the venous, which shows a pH of 7.33 and a PCO2 of 96, consistent with mild acute hypercapnia. Weput her on the ventilator and after around 30 minutes she was awake, responding to questions, nodding appropriately, following commands, moving all 4 extremities, indicating that she wanted the tube out but being cooperative and not gagging or trying to pull it out, tolerating well. I had respiratory evaluate her after we got her back from CT, she is not pulling very big tidal volumes on spontaneous mode, around 150 cc. Also her NIF was -22, within normallimits but borderline. Therefore since she is tolerating this right now I thinkit would be best to leave her intubated and admit her to the ICU overnight, we did consider extubating her to BiPAP here but given these parameters I think it would be springer to wait. At this time the rest of the work-up is unremarkable, mysuspicion is that she was hypercapnic and that was causing her comatose state. Discussed with critical care medicine Dr. Mcgill in agreement with this. Hospitalist request CT of the chest, given her chest x-ray that shows significant cardiomegaly, difficult to rule out an acute process in the left lower lobewhich I agree with, so that we will be obtained prior to admission. Lab Data Attestation: I reviewed the patient's lab results. Labs: Laboratory Results - last 24 hr 02/17/23 02/17/23 02/17/23 22:28 22:28 22:30 WBC 10.5 RBC 3.69 L Hgb 10.1 L Hct 37.3 MCV 101.1 H MCH 27.4 MCHC 27.1 L RDW Std Deviation 55.7 H RDW Coeff of Amanda 15.0 H Plt Count 163 MPV 8.4 Immature Gran % (Auto) 2.200 H Neut % (Auto) 87.0 H Lymph % (Auto) 6.6 L Sevier % (Auto) 3.6 Eos % (Auto) 0.2 Baso % (Auto) 0.4 Absolute Neuts (auto) 9.1 H Absolute Lymphs (auto) 0.69 L Nucleated RBC % 0.2 Sodium 145 Potassium 4.1 Chloride 102 Carbon Dioxide 45.0 H Anion Gap -2 L BUN 23 H Creatinine 0.64 Estim Creat Clear Calc 45.09 Est GFR (MDRD) Af Amer 118 Est GFR (MDRD) Non-Af 98 BUN/Creatinine Ratio 36.2 H Glucose 238 H Calcium 8.9 Total Bilirubin 0.50 AST 21 ALT 26 Alkaline Phosphatase 99 Troponin I High Sens 13 Total Protein 7.6 Albumin 2.9 L Globulin 4.7 H Albumin/Globulin Ratio 0.6 L Urine Color Yellow Urine Clarity Sl. Cloudy Urine pH 5.0 Ur Specific Highland 1.030 Urine Protein 100 H Urine Glucose (UA) Normal Urine Ketones Negative Urine Occult Blood 25 H Urine Nitrite Negative Urine Bilirubin Negative Urine Urobilinogen Normal Ur Leukocyte Esterase Negative Urine RBC 0-5 SEEN Urine WBC 0 SEEN Ur Squamous Epith Cells 0-5 SEEN Urine Bacteria 0 SEEN Hyaline Casts 0-5 SEEN Coarse Granular Casts 0-5 SEEN Urine Mucus 0 SEEN Urine Opiates Screen Urine Methadone Screen Ur Barbiturates Screen Ur Phencyclidine Scrn Ur Amphetamines Screen MDMA (Ecstasy) Screen U Benzodiazepines Scrn Urine Cocaine Screen U Cannabinoids Screen Ur Drug Screen Comment Ethyl Alcohol 02/17/23 02/17/23 22:30 22:32 WBC RBC Hgb Hct MCV MCH MCHC RDW Std Deviation RDW Coeff of Amanda Plt Count MPV Immature Gran % (Auto) Neut % (Auto) Lymph % (Auto) Sevier % (Auto) Eos % (Auto) Baso % (Auto) Absolute Neuts (auto) Absolute Lymphs (auto) Nucleated RBC % Sodium Potassium Chloride Carbon Dioxide Anion Gap BUN Creatinine Estim Creat Clear Calc Est GFR (MDRD) Af Amer Est GFR (MDRD) Non-Af BUN/Creatinine Ratio Glucose Calcium Total Bilirubin AST ALT Alkaline Phosphatase Troponin I High Sens Total Protein Albumin Globulin Albumin/Globulin Ratio Urine Color Urine Clarity Urine pH Ur Specific Highland Urine Protein Urine Glucose (UA) Urine Ketones Urine Occult Blood Urine Nitrite Urine Bilirubin Urine Urobilinogen Ur Leukocyte Esterase Urine RBC Urine WBC Ur Squamous Epith Cells Urine Bacteria Hyaline Casts Coarse Granular Casts Urine Mucus Urine Opiates Screen NEGATIVE Urine Methadone Screen NEGATIVE Ur Barbiturates Screen NEGATIVE Ur Phencyclidine Scrn NEGATIVE Ur Amphetamines Screen NEGATIVE MDMA (Ecstasy) Screen NEGATIVE U Benzodiazepines Scrn NEGATIVE Urine Cocaine Screen NEGATIVE U Cannabinoids Screen NEGATIVE Ur Drug Screen Comment Ethyl Alcohol < 3.0 Radiography Diagnostic Testing: Clinical Impression(s) from Imaging Studies Brain CT 02/17/23 22:26 IMPRESSION: 1. No evidence of acute intracranial pathology. 2. Diffuse involutional changes and chronic ischemic small vessel white matter disease. AIDOC was utilized to assist in identifying pertinent positive findings. Electronically Signed: Calvin Botello MD at 0:04 EDT , Chest X-Ray 02/17/23 22:26 IMPRESSION: 1. Dense left pleural parenchymal disease with pleural effusion not excluded. 2. Atelectasis versus infiltrate at the right lung base. 3. Satisfactory position of support devices. Electronically Signed: Calvin Botello MD at 0:01 EDT , Rhythm Strip Rhythm Strip: Sinus Rhythm Rate: 95 Ectopy: None EKG Initial EKG: Attestation: I personally reviewed and interpreted this EKG as follows: Interpretation: Sinus Rhythm, No Acute Injury Pattern and LBBB Prior EKG tracings: available for review Prior: Unchanged Management Discussion w/another healthcare provider: Hospitalist and Specialist Wound Care (javi mcgill) Procedures Intubations Intubation Method: orotracheal Intubation Verification: Positive color change and Bilateral breath sounds confirmed Intubation Complications: no complications (Patient taking some spontaneous breaths. Intubated without pretreatment of medications, no gag reflex using laryngoscopy with MAC 3 direct blade. Intubated when cords abducted. Visualizethe tube passing through the cords. Equal breath sounds bilaterally afterwards,secured 21 cm at the lip) Critical Care Time Critical Care Time: Yes Critical care time (excluding procedures): 30-74 minutes (35 min, not including procedure time), Including time spent:, Discussing w/Consultants, Arranging Admission or Transfer and Performing Direct Patient Care at Bedside Discharge Plan Dx/Rx/DC Orders Clinical Impression: Acute respiratory failure with hypoxia and hypercapnia, COPD (chronic obstructive pulmonary disease) Disposition Disposition: Acute Care Hospital [facility] What to do if you have Problems For any increased pain, shortness of breath, bleeding, nausea or vomiting, chestpain, or any unexpected problems, contact your Primary Care Provider. Call [facility] ([phone]) or report to the closest Emergency Room. Call 911 if necessary. 02/18/23 0019 <Electronically signed by Ellis Tsai MD> Cosigner Signature (if applicable): CC: FARM MACHINERY ENGINE MECHANIC-Andrea Carlisle ~ Signed [facility] Work Phone: 1(852) 994-994704-07-[address] Tsai [facility] February 18, 2023 12:19am Note Date/Time February 17, 2023 10:3 4pm [facility] Medical Records Department [address] [place] [address] Emergency Department Summary 02/17/23 MR#: [id number] Acct: [id number] Name: POLI RAMIREZ Rep #:[id number] : 1950 72 From: Ellis Tsai MD PCP: ARLENE Edmonds Status:REG E R Location: ED HPI History of Present Illness Chief Complaint: Unresponsive Informant: EMS Narrative Narrative: Patient brought from local fpc found unresponsive by fpc staff. Barely breathing, hypoxic in the 70s according to EMS, for them upon evaluation she has been a GCS of 3. They gave Narcan, they do not have a medication list for her, she had no response to Narcan 2 mg IV. They continued to bag her in route. They did an EKG, they did not send a prehospital but they are showing it to me upon evaluation, she has some lateral depressions and the EKG is suggesting a STEMI but it contains artifact. Patient does have signed paperwork saying that she is DNR CCA but there are no other specifications or desires and there is no family here. [facility]ulse ox 60[facility] not [facility]. Last seen normal about 3 hours prior to evaluation here. Apparently she is in a fpc for rehab after a neck fracture. She does not have any collar or cervical spine hardware. EMS also states that family wasapparently there yesterday, and the fpc staff was suspicious that they may be in the drugs. [facility] Medical History (Updated 02/18/23 @ 00:[address] 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 Chronic respiratory failure with hypoxia COPD (chronic obstructive pulmonary disease) Dysphagia Essential hypertension GERD (gastroesophageal reflux disease) History of falling Insomnia, unspecified Muscle weakness (generalized) Myocardial infarction Obstructive sleep apnea Other displaced fracture of seventh cervical vertebra, subsequent encounter for fracture with routine healing Other displaced fracture of sixth cervical vertebra, subsequent encounter for fracture with routine healing Other lack of coordination Other pancytopenia Personal history of malignant neoplasm of breast Personal history of nicotine dependence Primary osteoarthritis, left shoulder Primary osteoarthritis, right shoulder Pure hypercholesterolemia Respiratory failure with hypoxia Type 2 diabetes mellitus with diabetic neuropathy Unspecified abnormalities of gait and mobility Urinary incontinence Venous insufficiency Venous insufficiency (chronic) (peripheral) Home Medications gabapentin 300 mg capsule 300 mg PO TID Check with primary doctor 11/24/21 [History Last Taken Unknown] losartan 100 mg tablet 100 mg PO DAILY Check with primary doctor 11/24/21 [History Last Taken Unknown] metoprolol succinate 50 mg tablet,extended release 24 hr 50 PO DAILY Check with primary doctor 11/24/21 [History Last Taken Unknown] nystatin 100,000 unit/gram topical cream 1 applic topical BID Check with primarydoctor 11/24/21 [History Last Taken Unknown] omeprazole 20 mg capsule,delayed release 20 mg PO DAILY Check with primary doctor 11/24/21 [History Last Taken Unknown] simvastatin 10 mg tablet 10 mg PO QHS Check with primary doctor 11/24/21 [History Last Taken Unknown] bisacodyl 10 mg rectal suppository 10 mg PA DAILY PRN 11/11/22 [History Last Taken Unknown] cranberry 400 mg capsule 400 mg PO DAILY 11/11/22 [History Last Taken Unknown] cyanocobalamin (vitamin B-12) 1,000 mcg capsule 1,000 mcg PO DAILY 11/11/22 [History Last Taken Unknown] docusate sodium 100 mg capsule 100 mg PO DAILY 11/11/22 [History Last Taken Unknown] ferrous sulfate 200 mg (40 mg iron) tablet PO 11/11/22 [History Last Taken Unknown] folic acid 1 mg tablet 1 mg PO DAILY 11/11/22 [History Last Taken Unknown] glimepiride 1 mg tablet (Amaryl) 1 mg PO DAILY 11/11/22 [History Last Taken Unknown] glucagon 1 mg injection kit mg IM 11/11/22 [History Last Taken Unknown] oxycodone 5 mg capsule 5 mg PO Q6H PRN 11/11/22 [History Last Taken Unknown] Allergy/AdvReac Type Severity Reaction Status Date / Time cyclobenzaprine Allergy Other Verified 02/17/23 22:35 [From Flexeril] tizanidine [From Zanaflex] Allergy Other Verified 02/17/23 22:35 Family History Sister Breast cancer Grandmother Diabetes Surgical History History of lumpectomy of left breast Hx of cervical spine surgery Hx of cholecystectomy Social History Smoking Status: Former smoker EXAM Physical Exam Const Vital Signs: 02/17/23 22:17 02/17/23 22:24 02/17/23 22:42 Temperature 96.3 F L Temperature Source Temporal Pulse Rate 96 89 Respiratory Rate 14 20 H Respiratory Pattern Blood Pressure 111/55 L 106/68 Blood Pressure Mean 73 80 Pulse Ox 92 91 94 Oxygen Delivery Method Ambu-Bag Ambu-Bag Mechanical Ventilator Fraction of Inspired Oxygen (FIO2) 02/17/23 23:37 02/17/23 22:25 Temperature Temperature Source Pulse Rate 82 Respiratory Rate 18 17 Respiratory Pattern Normal Blood Pressure 115/69 Blood Pressure Mean 84 Pulse Ox 97 Oxygen Delivery Method Mechanical Ventilator Fraction of Inspired Oxygen (FIO2) 100 Positive well nourished, well developed and obese Constitutional Narrative: Obtunded General Appearance ED: well developed Nutritional Appearance: obese HEENT Reports moist mucous membranes HEENT Narrative: No excessive secretions normocephalic and atraumatic Eyes Eyes Narrative: Pupils 3 mm, sluggish, equal bilaterally Neck supple Chest Wall inspection of chest normal and palpation of chest normal Resp Resp Narrative: Poor respiratory effort, very shallow occasional breaths but for the most part apneic. Trachea midline. Equal breath sounds with bagging bilaterally and otherwise clear. Cardio regular rate, regular rhythm and no murmurs GI non-distended Palpation: soft Back/Spine no CVA tenderness General Back: other FROM Extremity normal to inspection General Extremety ED: Negative for edema, pulses abnormal or tenderness General Extremity: Negative for edema or pulses abnormal Neuro Neuro Narrative: Obtunded, flaccid, GCS 3. No response to painful stimulation anywhere. Skin no rashes or lesions noted and no wounds MDM MDM MDM Narrative Medical decision making narrative: Given that the patient DOES NOT have any paperwork that says DO NOT INTUBATE, and she does not have any documented diagnoses of a terminal illness, we intubated her given her profound hypoxemia and borderline apnea. While preppingfor this, EMS personnel continued to bag her which I supervised, and was able toget her up to 91%. She was then intubated without pretreatment see the procedure note, this was uncomplicated and chest x-ray 1 view on my interpretation shows good ETT placement. It also appears to show cardiomegaly, limited evaluation of retrocardiac space, but this is no different compared withher old 1. I had respiratory do an ABG relatively quick after we intubated her,he was not able to get arterial sample but I was okay with the venous, which shows a pH of 7.33 and a PCO2 of 96, consistent with mild acute hypercapnia. Weput her on the ventilator and after around 30 minutes she was awake, responding to questions, nodding appropriately, following commands, moving all 4 extremities, indicating that she wanted the tube out but being cooperative and not gagging or trying to pull it out, tolerating well. I had respiratory evaluate her after we got her back from CT, she is not pulling very big tidal volumes on spontaneous mode, around 150 cc. Also her NIF was -22, within normallimits but borderline. Therefore since she is tolerating this right now I thinkit would be best to leave her intubated and admit her to the ICU overnight, we did consider extubating her to BiPAP here but given these parameters I think it would be springer to wait. At this time the rest of the work-up is unremarkable, mysuspicion is that she was hypercapnic and that was causing her comatose state. Discussed with critical care medicine Dr. Mcgill in agreement with this. Hospitalist request CT of the chest, given her chest x-ray that shows significant cardiomegaly, difficult to rule out an acute process in the left lower lobewhich I agree with, so that we will be obtained prior to admission. Lab Data Attestation: I reviewed the patient's lab results. Labs: Laboratory Results - last 24 hr 02/17/23 02/17/23 02/17/23 22:28 22:28 22:30 WBC 10.5 RBC 3.69 L Hgb 10.1 L Hct 37.3 MCV 101.1 H MCH 27.4 MCHC 27.1 L RDW Std Deviation 55.7 H RDW Coeff of Amanda 15.0 H Plt Count 163 MPV 8.4 Immature Gran % (Auto) 2.200 H Neut % (Auto) 87.0 H Lymph % (Auto) 6.6 L Sevier % (Auto) 3.6 Eos % (Auto) 0.2 Baso % (Auto) 0.4 Absolute Neuts (auto) 9.1 H Absolute Lymphs (auto) 0.69 L Nucleated RBC % 0.2 Sodium 145 Potassium 4.1 Chloride 102 Carbon Dioxide 45.0 H Anion Gap -2 L BUN 23 H Creatinine 0.64 Estim Creat Clear Calc 45.09 Est GFR (MDRD) Af Amer 118 Est GFR (MDRD) Non-Af 98 BUN/Creatinine Ratio 36.2 H Glucose 238 H Calcium 8.9 Total Bilirubin 0.50 AST 21 ALT 26 Alkaline Phosphatase 99 Troponin I High Sens 13 Total Protein 7.6 Albumin 2.9 L Globulin 4.7 H Albumin/Globulin Ratio 0.6 L Urine Color Yellow Urine Clarity Sl. Cloudy Urine pH 5.0 Ur Specific Highland 1.030 Urine Protein 100 H Urine Glucose (UA) Normal Urine Ketones Negative Urine Occult Blood 25 H Urine Nitrite Negative Urine Bilirubin Negative Urine Urobilinogen Normal Ur Leukocyte Esterase Negative Urine RBC 0-5 SEEN Urine WBC 0 SEEN Ur Squamous Epith Cells 0-5 SEEN Urine Bacteria 0 SEEN Hyaline Casts 0-5 SEEN Coarse Granular Casts 0-5 SEEN Urine Mucus 0 SEEN Urine Opiates Screen Urine Methadone Screen Ur Barbiturates Screen Ur Phencyclidine Scrn Ur Amphetamines Screen MDMA (Ecstasy) Screen U Benzodiazepines Scrn Urine Cocaine Screen U Cannabinoids Screen Ur Drug Screen Comment Ethyl Alcohol 02/17/23 02/17/23 22:30 22:32 WBC RBC Hgb Hct MCV MCH MCHC RDW Std Deviation RDW Coeff of Amanda Plt Count MPV Immature Gran % (Auto) Neut % (Auto) Lymph % (Auto) Sevier % (Auto) Eos % (Auto) Baso % (Auto) Absolute Neuts (auto) Absolute Lymphs (auto) Nucleated RBC % Sodium Potassium Chloride Carbon Dioxide Anion Gap BUN Creatinine Estim Creat Clear Calc Est GFR (MDRD) Af Amer Est GFR (MDRD) Non-Af BUN/Creatinine Ratio Glucose Calcium Total Bilirubin AST ALT Alkaline Phosphatase Troponin I High Sens Total Protein Albumin Globulin Albumin/Globulin Ratio Urine Color Urine Clarity Urine pH Ur Specific Highland Urine Protein Urine Glucose (UA) Urine Ketones Urine Occult Blood Urine Nitrite Urine Bilirubin Urine Urobilinogen Ur Leukocyte Esterase Urine RBC Urine WBC Ur Squamous Epith Cells Urine Bacteria Hyaline Casts Coarse Granular Casts Urine Mucus Urine Opiates Screen NEGATIVE Urine Methadone Screen NEGATIVE Ur Barbiturates Screen NEGATIVE Ur Phencyclidine Scrn NEGATIVE Ur Amphetamines Screen NEGATIVE MDMA (Ecstasy) Screen NEGATIVE U Benzodiazepines Scrn NEGATIVE Urine Cocaine Screen NEGATIVE U Cannabinoids Screen NEGATIVE Ur Drug Screen Comment Ethyl Alcohol < 3.0 Radiography Diagnostic Testing: Clinical Impression(s) from Imaging Studies Brain CT 02/17/23 22:26 IMPRESSION: 1. No evidence of acute intracranial pathology. 2. Diffuse involutional changes and chronic ischemic small vessel white matter disease. AIDOC was utilized to assist in identifying pertinent positive findings. Electronically Signed: Calvin Botello MD at 0:04 EDT , Chest X-Ray 02/17/23 22:26 IMPRESSION: 1. Dense left pleural parenchymal disease with pleural effusion not excluded. 2. Atelectasis versus infiltrate at the right lung base. 3. Satisfactory position of support devices. Electronically Signed: Calvin Botello MD at 0:01 EDT , Rhythm Strip Rhythm Strip: Sinus Rhythm Rate: 95 Ectopy: None EKG Initial EKG: Attestation: I personally reviewed and interpreted this EKG as follows: Interpretation: Sinus Rhythm, No Acute Injury Pattern and LBBB Prior EKG tracings: available for review Prior: Unchanged Management Discussion w/another healthcare provider: Hospitalist and Specialist Wound Care (javi mcgill) Procedures Intubations Intubation Method: orotracheal Intubation Verification: Positive color change and Bilateral breath sounds confirmed Intubation Complications: no complications (Patient taking some spontaneous breaths. Intubated without pretreatment of medications, no gag reflex using laryngoscopy with MAC 3 direct blade. Intubated when cords abducted. Visualizethe tube passing through the cords. Equal breath sounds bilaterally afterwards,secured 21 cm at the lip) Critical Care Time Critical Care Time: Yes Critical care time (excluding procedures): 30-74 minutes (35 min, not including procedure time), Including time spent:, Discussing w/Consultants, Arranging Admission or Transfer and Performing Direct Patient Care at Bedside Discharge Plan Dx/Rx/DC Orders Clinical Impression: Acute respiratory failure with hypoxia and hypercapnia, COPD (chronic obstructive pulmonary disease) Disposition Disposition: [facility] What to do if you have Problems For any increased pain, shortness of breath, bleeding, nausea or vomiting, chestpain, or any unexpected problems, contact your Primary Care Provider. Call [facility] ([phone]) or report to the closest Emergency Room. Call 911 if necessary. 02/18/23 0019 <Electronically signed by Ellis Tsai MD> Cosigner Signature (if applicable): CC: ARLENE Carlisle ~ Signed [facility] Work Phone: 1(773) 794-973709-13-2022 Hospital Discharge instructions Patient Education 07/27/2022 11:52:16 Cervical Spine Fracture, Stable Cervical Spine Fracture, Stable A cervical spine fracture is a break or crack in one of the bones of the neck. If there is a very low risk of problems happening during healing, the fracture is considered stable. What are the causes? This condition may be caused by: Motor vehicle accidents. Injuries from sports such as diving, football, biking, wrestling, or skiing. Severe osteoporosis or other bone diseases, such as cancers that spread to bone or metabolic abnormalities that cause bone weakness. What are the signs or symptoms? Symptoms of this condition include: Severe neck pain after an accident or fall. Pain may spread down the shoulders or arms. Bruising or swelling on the back of the neck. Numbness, tingling, sudden muscle tightening (spasms), or weakness in the arms, legs, or both. How is this diagnosed? This condition may be diagnosed based on: Your medical history. A physical exam of your neck, arms, and legs. Imaging studies of the neck, such as: ?X-rays. ?CT scan. ?MRI. How is this treated? This condition is treated with a neck brace or cervical collar to keep your neck from moving duringthe healing process. A cervical collar is a device that supports your chin and the back of your head. You may also be given medicine to help relieve pain. Follow these instructions at home: If you have a neck brace: Wear the brace as told by your health care provider. Remove it only as told by your health care provider. If you experience numbness or tingling, loosen the brace. Keep the brace clean. If the brace is not waterproof: ?Do not let it get wet. ?Cover it with a watertight covering when you take a bath or a shower. If you have a cervical collar: Do not remove the collar unless your health care provider tells you to do this. If you are allowed to remove the collar for cleaning and bathing: ?Follow your health care provider s instructions about how to safely take off the collar. ?Wash and thoroughly dry the skin on your neck. Check your skin for irritation or sores. If you seeany, tell your health care provider. Ask your health care provider before making any adjustments to your collar. Small adjustments may be needed over time to improve comfort and reduce pressure on your chin or on the back of your head. Keep long hair outside of the collar. Keep your collar clean by wiping it with mild soap and water and letting it air- dry completely. Thepads can be hand-washed with soap and water and air-dried completely. Managing pain, stiffness, and swelling If directed, put ice on the injured area: ?If you have a removable brace or cervical collar, remove it as told by your health care provider. ?Put ice in a plastic bag. ?Place a towel between your skin and the bag. ?Leave the ice on for 20 minutes, 2 3 times a day. Activity Do not drive a car until your health care provider approves. Do not drive or use heavy machinery while taking prescription pain medicine. Avoid physical activity for as long as directed. Ask your health care provider what activities are safe for you. General instructions Take [id number]-rulewhx and prescription medicines only as told by your health care provider. Do not take baths, swim, or use a hot tub until your health care provider approves. Ask your healthcare provider if you can take showers. You may only be allowed to take sponge baths for bathing. Do not use any products that contain nicotine or tobacco, such as cigarettes and e-cigarettes. These can delay bone healing. If you need help quitting, ask your health care provider. Keep all follow-up visits as told by your health care provider. This is important to help prevent long-term (chronic) or permanent injury, pain, and disability. You may need to have follow-up X-rays or MRI 1 3 weeks after your injury. Contact a health care provider if: You have irritation or sores on your skin from your brace or cervical collar. Get help right away if: You have neck pain that gets worse. You develop difficulties swallowing or breathing. You develop swelling in your neck. You have any of the following problems in your arms, legs, or both: ?Numbness. ?Weakness. ?Burning pain. ?Movement problems. You are unable to control when you urinate or have a bowel movement (incontinence). You have problems with coordination or difficulty walking. This information is not intended to replace advice given to you by your health care provider. Make sure you discuss any questions you have with your health care provider. Document Released: 09/17/2005 Document Revised: 10/13/2018 Document Reviewed: 08/04/2017 [employer] Patient Education 2020 [employer] Follow Up Care 07/11/2022 11:22:15 [facility] [phone] skilled Address:Unknown When:1-2 days With:BARBER CARLISLE Address: [address] [facility] [address] [phone] Business (1) When:1-2 days With:BYRON STUBBS, TRACE Sprague, Neurosurgery Address: [address] [facility] [address] [facility] [address] [phone] When:08/10/2022 11:00:00 [facility] 09-13-2022 Note Discharge Instructions Thank you for allowing [facility] to assist you with your healthcare needs. The following is importantdischarge information regarding your hospital visit. Your Care Team BARBER CARLISLE Your Diagnosis S/P fall, resulting in C6-7 distraction injury with bilateral pedicle fractures S/P C2-C7 decompressive laminectomy, C2-T2 posterior bone screw/merari fixation and fusion DM2 (diabetes mellitus, type 2) Hypertension Chronic respiratory failure with hypoxia, on home oxygen therapy 2L NC E-coli UTI Acute DVT (deep venous thrombosis) right soleal vein. What to do next Instructions From Your Doctor Repeat bilateral lower extremity dopplers on 07/28/2022 and send results to FREDY Edmonds Neck Xray at [facility], Ground floor Radiology Dept on 08/10/2022 at 10:30am. After xray is completed, then go to Dr Matthews's office for follow-up appointment for re-evaluation and review of neck xray. Follow up appointment will be with Dr. Matthews's Nurse Practitioner, Renetta Rojo CNP. No aspirin, aspirin products, NSAIDS until cleared by Neurosurgery. Shalini brace is to be worn at all times. No lifting more than 10 lbs. Surgical incision care posterior neck: Change dry sterile dressing daily over surgical incision Change sterile gauze and apply Neosporin twice daily to top portion of incision (about the first 2 cm of the incision). Small scab was noted in this area, if noted to have wound breakdown, please contact Dr. Matthews's office immediately Keep incision dry until completely healed and cleared by neurosurgery. No soaking incision for 6 weeks post-op (no tub baths, hot tubs, saunas, swimming, etc.) If surgical incision becomes red, swollen, painful, opens and/or has drainage on around site, or ifyou develop a fever contact Neurosurgery office immediately. Please contact neurosurgery office with any new or worsening symptoms. Scheduled Follow-Up Appointments Appointment Type When Where Contact InformationNS Post Op 08/10/2022 11:00 AM EDT Neurosurgery [address] [phone] Follow Up Appointments Follow Up with BYRON STUBBS, TRACE Sprague, Neurosurgery When 08/10/2022 11:00 AM EDT Where: [address] [place] [address] [phone] Follow Up with [facility] [phone] skilled When Within 1-2 days Follow Up with BARBER CARLISLE When Within 1-2 days Where: [address] [facility] [address]- [phone] Business (1) The Following Activity and Diet Have Been Ordered for You Transfer of Care Activity - Ordered -- Activity As Tolerated, Must wear shalini brace at all times. When brace needs readjusted, lay patient flat and logroll supporting C-spine AT ALL TIMES with 1 2 assistance, 07/26/22 9:17:00 EDT Transfer of Care Diet - Ordered -- Type of Diet: Regular Diet, Calories Permitted: 2000 kcal, 07/26/22 9:17:00 EDT The Following Equipment Has Been Ordered for You Discharge Home Equipment Discharge Blood Glucose Monitoring - Ordered -- When to Test: Before each meal and at bedtime Transfer of Care Wound Care - Ordered -- Dressing Type: Dry sterile drsg, Change Dressing: Change dressing daily., Change dry sterile dressing daily over surgical incision. Remove Shalini brace while patient is flat logroll, and support C-spine at all times, 07/26/22 9:17:00 EDT Transfer of Care Wound Care - Ordered -- Dressing Type: Dry sterile drsg, Neck, posterior, Change Dressing: Twice daily, Top portion of cervical incision: Replace piece of dry sterile gauze twice daily and apply Neosporin to first 2 cm of surgical incision. Small scab/open area. Call with... The Following Treatments Have Been Ordered for You Discharge Labs No qualifying data available. Discharge Radiology Transfer of Care Radiology - Ordered -- Bilateral lower extremity Dopplers, DVT, Send results to PCP Barber Carlisle, 07/26/22 9:17:00 EDT Transfer of Care Radiology - Ordered -- Cervical spine x-ray, Cervical fusion, Sitting lateral cervical spine x-ray with Shalini brace on 30 minutes prior to office visit with Dr. Matthews 08/10/2022 at 10:30 AM, 07/26/22 9:17:00 EDT Other Therapies Discharge Blood Glucose Monitoring - Ordered -- When to Test: Before each meal and at bedtime Transfer of Care OT - Ordered -- Reason for therapy: mobilization, ADL's, and strengthening, 07/26/22 9:17:00 EDT Transfer of Care PT - Ordered -- Reason for therapy: mobilization and strengthening, 07/26/22 9:17:00 EDT Post Acute Orders Transfer of Care Admission Level of Care - Ordered -- Level of Care SNF, 07/26/22 9:17:28 EDT Transfer of Care Code Status - Ordered -- Full Code, Constant Order Transfer of Care Communication Order - Ordered -- Expect less than 30 day stay., 07/26/22 9:17:28 EDT Transfer of Care Communication Order - Ordered -- LE dopplar in 1 week. See discharge paperwork., 07/26/22 9:17:28 EDT Transfer of Care Orders Electronically Signed By - Ordered -- 07/26/22 9:17:00 EDT, BYRON STUBBS, TRACE Sprague Transfer of Care Prognosis - Ordered -- Good, Patient Aware: Yes Transfer of Care Rehab Potential - Ordered -- Rehab potential good, 07/26/22 9:17:28 EDT Someone Will Contact You Regarding These Home Health Referrals No home referrals have been ordered for you. No one will call you. Allergies Flexeril Zanaflex Medications Please ask your primary doctor or pharmacist before taking any other medication not listed, including over the counter drugs, herbal medications, vitamins and or supplements as they may interact withyour home medications. What How Much When Instructions Last Dose New docusate (Colace 100 mg oral capsule) 1 cap by mouth Two (2) times a day as needed for Constipation New docusate-senna (docusate-senna 50 mg-8.6 mg oral tablet) 1 tab(s) by mouth Two (2) times a day New heparin (heparin 5000 units/ mL injection) 1 Milliliter Subcutaneous Every 8 hours New insulin lispro (HumaLOG) (HumaLOG 100 units/ mL subcutaneous solution) Give 0-10 units/dose Subcutaneous Three (3) times a day before meals New melatonin 5 Milligram by mouth Daily at bedtime as needed for Sleep New nystatin topical (nystatin 100,000 units/ g topical powder) 1 application Topical As Directed New oxyCODONE (oxyCODONE 5 mg oral tablet ( IMMEDIATE release )) 1 tab(s) by mouth Every 6 hours as needed for Pain, scale 4-10 New pantoprazole (pantoprazole 40 mg oral enteric coated tablet) 1 tab(s) by mouth Once a day before a meal New polyethylene glycol 3350 by mouth Once a day New polyethylene glycol 3350 by mouth Once a day as needed for Constipation Changed gabapentin (gabapentin 300 mg oral capsule) 1 cap by mouth Three (3) times a day Unchanged estradiol topical (estradiol 0.1 mg/ g vaginal cream) 1 Applicatorful Vaginal Twice a week Duration: 30 Days Unchanged losartan (losartan 100 mg oral tablet) 1 tab(s) by mouth Once a day Unchanged metoprolol (metoprolol succinate 50 mg oral TABLET extended release) 1 tab(s) by mouth Once a day Unchanged simvastatin (simvastatin 10 mg oral tablet) 1 tab(s) by mouth Daily at bedtime What How Much When Why Comments Stop Taking aspirin (aspirin 81 mg oral delayed release tablet) 1 tab(s) by mouth Every day Stop Taking diclofenac (diclofenac potassium 50 mg oral tablet) 1 tab(s) by mouth Once a day Stop Taking dicyclomine (dicyclomine 20 mg oral tablet) 1 tab(s) by mouth Two (2) times a day Duration: 90 Days Stop Taking furosemide (Lasix 20 mg oral tablet) 1 tab(s) by mouth Two (2) times a day Stop Taking glimepiride (glimepiride 4 mg oral tablet) 1 tab(s) by mouth Once a day Diarrhea Diabetes mellitus type 2 Stop Taking mirabegron (Myrbetriq 25 mg oral tablet, extended release) 1 tab(s) by mouth Once a day Stop Taking nitroGLYcerin (nitroglycerin 0.4 mg sublingual tablet) 1 tab(s) under the tongue Every 5 minutes Stop Taking omeprazole (omeprazole 20 mg oral delayed release capsule) 1 cap by mouth Once a day before a meal as needed for abdominal discomfort Stop Taking oxybutynin (oxybutynin 5 mg oral tablet) 1 tab(s) by mouth Once a day Please take this list to your next doctor s visit. Bring all medications you take, including over the counter medications, herbals and other supplements with you to your doctor s visit. Patients and families are reminded to discard old lists and to update any records with all medication providers or retail pharmacies. Medication Leaflets oxycodone (ox i KOE done) Oxaydo, OxyCONTIN, Oxyfast, OxyIR, Roxicodone, Xtampza ER What is the most important information I should know about oxycodone? MISUSE OF OPIOID MEDICINE CAN CAUSE ADDICTION, OVERDOSE, OR . Keep the medication in a place where others cannot get to it. Taking opioid medicine during may cause life-threatening withdrawal symptoms in the . Fatal side effects can occur if you use opioid medicine with alcohol, or with other drugs that cause drowsiness or slow your breathing. What is oxycodone? Oxycodone is an opioid pain medication used to treat moderate to severe pain. The extended-release form of oxycodone is for qczoic-jvw-etfix treatment of pain and should not be used on an as-needed basis for pain. Oxycodone may also be used for purposes not listed in this medication guide. What should I discuss with my healthcare provider before using oxycodone? You should not use oxycodone if you are allergic to it, or if you have: severe asthma or breathing problems; or a blockage in your stomach or intestines. You should not use oxycodone unless you are already using a similar opioid medicine and are tolerant to it. Most brands of oxycodone are not approved for use in people under 18. OxyContin should not be givento a child younger than 11 years old. Tell your doctor if you have ever had: breathing problems, sleep apnea; a head injury, or seizures; drug or alcohol addiction, or mental illness; liver or kidney disease; urination problems; or problems with your gallbladder, pancreas, or thyroid. If you use opioid medicine while you are , your baby could become dependent on the drug. This can cause life-threatening withdrawal symptoms in the baby after it is born. Babies born dependent on opioids may need medical treatment for several weeks. Ask a doctor before using opioid medicine if you are . Tell your doctor if you notice severe drowsiness or slow breathing in the nursing baby. How should I use oxycodone? Follow the directions on your prescription label and read all medication guides. Never use oxycodone in larger amounts, or for longer than prescribed. Tell your doctor if you feel an increased urge to take more of this medicine. Never share opioid medicine with another person, especially someone with a history of drug abuse oraddiction. MISUSE CAN CAUSE ADDICTION, OVERDOSE, OR . Keep the medication in a place where others cannot get to it. Selling or giving away opioid medicine is against the law. Stop taking all other yzjnnn-qgx-yincr opioid pain medicines when you start taking extended-releaseoxycodone. Take oxycodone with food. Swallow the capsule or tablet whole to avoid exposure to a potentially fatal overdose. Do not crush, chew, break, open, or dissolve. If you cannot swallow a capsule whole, open it and sprinkle the medicine into a spoonful of puddingor applesauce. Swallow the mixture right away without chewing. Do not save it for later use. Never crush or break an oxycodone pill to inhale the powder or mix it into a liquid to inject the drug into your vein. This can cause in . Measure liquid medicine carefully. Use the dosing syringe provided, or use a medicine dose-measuring device (not a kitchen spoon). You should not stop using oxycodone suddenly. Follow your doctor's instructions about tapering yourdose. Store at room temperature, away from heat, moisture, and light. Keep track of your medicine. Oxycodone is a drug of abuse and you should be aware if anyone is using your medicine improperly or without a prescription. Do not keep leftover opioid medication. Just one dose can cause in someone using this medicine accidentally or improperly. Ask your pharmacist where to locate a drug take-back disposal program.If there is no take-back program, flush the unused medicine down the toilet. What happens if I miss a dose? Since oxycodone is used for pain, you are not likely to miss a dose. Skip any missed dose if it is almost time for your next dose. Do not use two doses at one time. What happens if I overdose? Seek emergency medical attention or call the Poison Help line at . An opioid overdosecan be fatal, especially in a child or other person using the medicine without a prescription. Overdose symptoms may include severe drowsiness, pinpoint pupils, slow breathing, or no breathing. Your doctor may recommend you get naloxone (a medicine to reverse an opioid overdose) and keep it with you at all times. A person caring for you can give the naloxone if you stop breathing or don't wake up. Your caregiver must still get emergency medical help and may need to perform CPR (cardiopulmonary resuscitation) on you while waiting for help to arrive. Anyone can buy naloxone from a pharmacy or local health department. Make sure any person caring foryou knows where you keep naloxone and how to use it. What should I avoid while using oxycodone? Do not drink alcohol. Dangerous side effects or could occur. Avoid driving or operating machinery until you know how oxycodone will affect you. Dizziness or severe drowsiness can cause falls or other accidents. Avoid medication errors. Always check the brand and strength of oxycodone you get from the pharmacy. What are the possible side effects of oxycodone? Get emergency medical help if you have signs of an allergic reaction: hives; difficult breathing; swelling of your face, lips, tongue, or throat. Opioid medicine can slow or stop your breathing, and may occur. A person caring for you should give naloxone and/or seek emergency medical attention if you have slow breathing with long pauses,blue colored lips, or if you are hard to wake up. Call your doctor at once if you have: noisy breathing, sighing, shallow breathing, breathing that stops during sleep; a slow heart rate or weak pulse; a light-headed feeling, like you might pass out; confusion, unusual thoughts or behavior; seizure (convulsions); low cortisol levels-- nausea, vomiting, loss of appetite, dizziness, worsening tiredness or weakness; or high levels of serotonin in the body--agitation, hallucinations, fever, sweating, shivering, fast heart rate, muscle stiffness, twitching, loss of coordination, nausea, vomiting, diarrhea. Serious breathing problems may be more likely in older adults and in those who are debilitated or have wasting syndrome or chronic breathing disorders. Common side effects may include: drowsiness, headache, dizziness, tiredness; or constipation, stomach pain, nausea, vomiting. This is not a complete list of side effects and others may occur. Call your doctor for medical advice about side effects. You may report side effects to FDA at 9-769-QAL-5254. What other drugs will affect oxycodone? You may have breathing problems or withdrawal symptoms if you start or stop taking certain other medicines. Tell your doctor if you also use an antibiotic, antifungal medication, heart or blood pressure medication, seizure medication, or medicine to treat HIV or hepatitis C. Opioid medication can interact with many other drugs and cause dangerous side effects or . Be sure your doctor knows if you also use: cold or allergy medicines, bronchodilator asthma/COPD medication, or a diuretic ('water pill'); medicines for motion sickness, irritable bowel syndrome, or overactive bladder; other opioids--opioid pain medicine or prescription cough medicine; a sedative like Valium--diazepam, alprazolam, lorazepam, Xanax, Klonopin, Versed, and others; drugs that make you sleepy or slow your breathing--a sleeping pill, muscle relaxer, medicine to treat mood disorders or mental illness; or drugs that affect serotonin levels in your body--a stimulant, or medicine for depression, Parkinson's disease, migraine headaches, serious infections, or nausea and vomiting. This list is not complete and many other drugs may affect oxycodone. This includes prescription ntydkld-cit-fnkrjuy medicines, vitamins, and herbal products. Not all possible drug interactions are listed here. Where can I get more information? Your pharmacist can provide more information about oxycodone. Remember, keep this and all other medicines out of the reach of children, never share your medicines with others, and use this medication only for the indication prescribed. Every effort has been made to ensure that the information provided by [employer]. ('[employer]') is accurate, up-to-date, and complete, but no guarantee is made to that effect. Drug information contained herein may be time sensitive. [employer] information has been compiled for use by healthcare practitioners and consumers in the [place] and therefore [employer] does not warrant that uses outside of the [place] are appropriate, unless specifically indicated otherwise. [employer] drug information does not endorse drugs, diagnose patients or recommend therapy. [employer] drug information isan informational resource designed to assist licensed healthcare practitioners in caring for their p atients and/or to serve consumers viewing this service as a supplement to, and not a substitute for, the expertise, skill, knowledge and judgment of healthcare practitioners. The absence of a warningfor a given drug or drug combination in no way should be construed to indicate that the drug or drug combination is safe, effective or appropriate for any given patient. [employer] does not assume any responsibility for any aspect of healthcare administered with the aid of information [employer] provides. The information contained herein is not intended to cover all possible uses, directions, precautions, warnings, drug interactions, allergic reactions, or adverse effects. If you have questions about the drugs you are taking, check with your doctor, nurse or pharmacist. Copyright 8980-4889 [employer]. Version: 14.02. Revision Date: 12/11/2020. Education Materials Cervical Spine Fracture, Stable A cervical spine fracture is a break or crack in one of the bones of the neck. If there is a very low risk of problems happening during healing, the fracture is considered stable. What are the causes? This condition may be caused by: Motor vehicle accidents. Injuries from sports such as diving, football, biking, wrestling, or skiing. Severe osteoporosis or other bone diseases, such as cancers that spread to bone or metabolic abnormalities that cause bone weakness. What are the signs or symptoms? Symptoms of this condition include: Severe neck pain after an accident or fall. Pain may spread down the shoulders or arms. Bruising or swelling on the back of the neck. Numbness, tingling, sudden muscle tightening (spasms), or weakness in the arms, legs, or both. How is this diagnosed? This condition may be diagnosed based on: Your medical history. A physical exam of your neck, arms, and legs. Imaging studies of the neck, such as: ? X-rays. ? CT scan. ? MRI. How is this treated? This condition is treated with a neck brace or cervical collar to keep your neck from moving duringthe healing process. A cervical collar is a device that supports your chin and the back of your head. You may also be given medicine to help relieve pain. Follow these instructions at home: If you have a neck brace: Wear the brace as told by your health care provider. Remove it only as told by your health care provider. If you experience numbness or tingling, loosen the brace. Keep the brace clean. If the brace is not waterproof: ? Do not let it get wet. ? Cover it with a watertight covering when you take a bath or a shower. If you have a cervical collar: Do not remove the collar unless your health care provider tells you to do this. If you are allowed to remove the collar for cleaning and bathing: ? Follow your health care provider s instructions about how to safely take off the collar. ? Wash and thoroughly dry the skin on your neck. Check your skin for irritation or sores. If you see any, tell your health care provider. Ask your health care provider before making any adjustments to your collar. Small adjustments may be needed over time to improve comfort and reduce pressure on your chin or on the back of your head. Keep long hair outside of the collar. Keep your collar clean by wiping it with mild soap and water and letting it air- dry completely. Thepads can be hand-washed with soap and water and air-dried completely. Managing pain, stiffness, and swelling If directed, put ice on the injured area: ? If you have a removable brace or cervical collar, remove it as told by your health care provider. ? Put ice in a plastic bag. ? Place a towel between your skin and the bag. ? Leave the ice on for 20 minutes, 2 3 times a day. Activity Do not drive a car until your health care provider approves. Do not drive or use heavy machinery while taking prescription pain medicine. Avoid physical activity for as long as directed. Ask your health care provider what activities are safe for you. General instructions Take oqtl-wsf-ufjfosm and prescription medicines only as told by your health care provider. Do not take baths, swim, or use a hot tub until your health care provider approves. Ask your healthcare provider if you can take showers. You may only be allowed to take sponge baths for bathing. Do not use any products that contain nicotine or tobacco, such as cigarettes and e-cigarettes. These can delay bone healing. If you need help quitting, ask your health care provider. Keep all follow-up visits as told by your health care provider. This is important to help prevent long-term (chronic) or permanent injury, pain, and disability. You may need to have follow-up X-rays or MRI 1 3 weeks after your injury. Contact a health care provider if: You have irritation or sores on your skin from your brace or cervical collar. Get help right away if: You have neck pain that gets worse. You develop difficulties swallowing or breathing. You develop swelling in your neck. You have any of the following problems in your arms, legs, or both: ? Numbness. ? Weakness. ? Burning pain. ? Movement problems. You are unable to control when you urinate or have a bowel movement (incontinence). You have problems with coordination or difficulty walking. This information is not intended to replace advice given to you by your health care provider. Make sure you discuss any questions you have with your health care provider. Document Released: 09/17/2005 Document Revised: 10/13/2018 Document Reviewed: 08/04/2017 [employer] Patient Education 2020 [employer] Additional Information VACCINATE! IT SAVES LIVES! Members of the community who have not yet received the COVID-19 vaccine and would like to receive it can visit one of [facility] vaccine clinics. There are many vaccine clinic locations within the [facility]. For locations and available times, please visit [email or web address] It is important to note that some COVID mobile vaccine clinics are held outdoors and may be canceled in rainy or stormy conditions. To learn more about pediatric vaccinations (ages 5-11), we invite you to visit the [employer] webpage. [email or web address] learn more about the COVID-19 vaccine, we invite you to visit the [facility] website for a list of frequently asked questions. [email or web address] [facility] [employer] Patient Portal Access Instructions: Stay connected with your healthcare team and access your personal medical information anytime with the [facility] Patient Portal.If you would like a full copy of your medical records, please contact the [facility] Medical Records Department, Tuesday through Tuesday between 8a.m. and 4:30p.m. Please follow the directions below to access the portal: 1.Access the email account you provided upon registration to the [facility].2.Look for an invitation email from [facility].3.Open the email and access the invitation link: Accept Invitation to [facility]4.Fill in the required quijano to create your account. Sign into www.[employer] with your username and password that you created in the above steps to stay up to date. You can then view a summary of results, a summary of your visits, and the ability to download your summaries to your computer or send the information securely to a physician. Remember that your healthcare information is confidential, so carefully consider who you will allow to register on the [employer] Patient Portal for access to your information. You can also access the [employer] Patient Portal on the [employer]. Simply click on "Health Records" under "HealthData" and then click on the [employer] logo. HOW TO SAFELY DISPOSE OF PRESCRIPTION MEDICATIONS Please use one of the following methods to safely dispose of your unused medications. 1.Use a drug disposal kit: the drug disposal pouch allows you to safely discard your old and unuseddrugs. Ask your nurse to give you one when you are discharged.2.Visit a local take-back location: Many local pharmacies and police departments have programs that collect old and unwanted prescriptiondrugs. Call your local pharmacy or go to http://[email or web address]/[email or web address] to find one close to you.3.Make use of household items: Use cat litter or old coffee grounds to dispose medications if other options arenot available. Mix your drugs with these household products, seal them in an airtight container andthrow it into the garbage. Call [facility]: [phone] to be sure your drugs can be disposed of in this way. Some medicines may require a different approach.4.Never flush your medications down the toilet. IF YOU HAVE BEEN PRESCRIBED AN OPIOID FOR PAIN If you have been prescribed an opioid (such as hydrocodone, oxycodone or morphine), it is critical to understand the possible side effects and risks of opioid pain medications. Even when taken as directed, opioids can have several side effects including: Tolerance, meaning you might need to take more of a medication for the same pain relief. Nausea, vomiting and/or constipation. Sleepiness, dizziness, dry mouth, confusion, depression or itching. Physical dependence, meaning you have withdrawal symptoms when a medication is stopped, can develop within a few days. KNOW YOUR RESPONSIBILITIES It is important to know exactly how much and how often to take the opioid pain medications you are prescribed. Never take opioids in higher amounts or more often than prescribed. Do not combine opioids with alcohol or other drugs that cause drowsiness, such as benzodiazepines, also known as benzos, including diazepam and alprazolam, muscle relaxants or sleep aids. Never sell or share prescription opioids. This is illegal. Store opioids in a secure place and out of reach of others (including children, family, friends and visitors). The last page of this document has been signed and retained as a CHART COPY. Signatures Patient Education Materials Cervical Spine Fracture, Stable Medication Leaflets oxyCODONE 5 mg oral tablet ( IMMEDIATE release ) My discharge plan and instructions have been reviewed and explained to me and I,VALERIY POLI J understand my current condition and have read and understand these discharge instructions. I have received a written copy of the plan/instructions. If I have questions, I am aware that I should contact my d octor. Patient/Cake Wrapper Signature: Date/Time: Relationship to Patient: Witness Name/Signature: [id number] Discharge Instructions Thank you for allowing [facility] to assist you with your healthcare needs. The following is importantdischarge information regarding your hospital visit. Your Care Team BARBER CARLISLE Your Diagnosis S/P fall, resulting in C6-7 distraction injury with bilateral pedicle fractures S/P C2-C7 decompressive laminectomy, C2-T2 posterior bone screw/merari fixation and fusion DM2 (diabetes mellitus, type 2) Hypertension Chronic respiratory failure with hypoxia, on home oxygen therapy 2L NC E-coli UTI Acute DVT (deep venous thrombosis) right soleal vein. What to do next Instructions From Your Doctor Repeat bilateral lower extremity dopplers on 07/28/2022 and send results to [facility] at [facility], [facility] floor Radiology Dept on 08/10/2022 at 10:30am. After xray is completed, then go to Dr Matthews's office for follow-up appointment for re-evaluation and review of neck xray. Follow up appointment will be with Dr. Matthews's Nurse Practitioner, Renetta Rojo CNP. No aspirin, aspirin products, NSAIDS until cleared by Neurosurgery. Shalini brace is to be worn at all times. No lifting more than 10 lbs. Surgical incision care posterior neck: Change dry sterile dressing daily over surgical incision Change sterile gauze and apply Neosporin twice daily to top portion of incision (about the first 2 cm of the incision). Small scab was noted in this area, if noted to have wound breakdown, please contact Dr. Matthews's office immediately Keep incision dry until completely healed and cleared by neurosurgery. No soaking incision for 6 weeks post-op (no tub baths, hot tubs, saunas, swimming, etc.) If surgical incision becomes red, swollen, painful, opens and/or has drainage on around site, or ifyou develop a fever contact Neurosurgery office immediately. Please contact neurosurgery office with any new or worsening symptoms. Scheduled Follow-Up Appointments Appointment Type When Where Contact InformationNS Post Op 08/10/2022 11:00 AM EDT Neurosurgery [address] [id number] Follow Up Appointments Follow Up with BYRON STUBBS, TRACE Sprague, Neurosurgery When 08/10/2022 11:00 AM EDT Where: [address] [address] [phone] Follow Up with [facility] [phone] skilled When Within 1-2 days Follow Up with BARBER CARLISLE When Within 1-2 days Where: [address] [facility] [place] [address] [phone] Business (1) The Following Activity and Diet Have Been Ordered for You Transfer of Care Activity - Ordered -- Activity As Tolerated, Must wear shalini brace at all times. When brace needs readjusted, lay patient flat and logroll supporting C-spine AT ALL TIMES with 1 2 assistance, 07/26/22 9:17:00 EDT Transfer of Care Diet - Ordered -- Type of Diet: Regular Diet, Calories Permitted: 2000 kcal, 07/26/22 9:17:00 EDT The Following Equipment Has Been Ordered for You Discharge Home Equipment Discharge Blood Glucose Monitoring - Ordered -- When to Test: Before each meal and at bedtime Transfer of Care Wound Care - Ordered -- Dressing Type: Dry sterile drsg, Change Dressing: Change dressing daily., Change dry sterile dressing daily over surgical incision. Remove Shalini brace while patient is flat logroll, and support C-spine at all times, 07/26/22 9:17:00 EDT Transfer of Care Wound Care - Ordered -- Dressing Type: Dry sterile drsg, Neck, posterior, Change Dressing: Twice daily, Top portion of cervical incision: Replace piece of dry sterile gauze twice daily and apply Neosporin to first 2 cm of surgical incision. Small scab/open area. Call with... The Following Treatments Have Been Ordered for You Discharge Labs No qualifying data available. Discharge Radiology Transfer of Care Radiology - Ordered -- Bilateral lower extremity Dopplers, DVT, Send results to PCP Barber Carlisle, 07/26/22 9:17:00 EDT Transfer of Care Radiology - Ordered -- Cervical spine x-ray, Cervical fusion, Sitting lateral cervical spine x-ray with Shalini brace on 30 minutes prior to office visit with Dr. Matthews 08/10/2022 at 10:30 AM, 07/26/22 9:17:00 EDT Other Therapies Discharge Blood Glucose Monitoring - Ordered -- When to Test: Before each meal and at bedtime Transfer of Care OT - Ordered -- Reason for therapy: mobilization, ADL's, and strengthening, 07/26/22 9:17:00 EDT Transfer of Care PT - Ordered -- Reason for therapy: mobilization and strengthening, 07/26/22 9:17:00 EDT Post Acute Orders Transfer of Care Admission Level of Care - Ordered -- Level of Care SNF, 07/26/22 9:17:28 EDT Transfer of Care Code Status - Ordered -- Full Code, Constant Order Transfer of Care Communication Order - Ordered -- Expect less than 30 day stay., 07/26/22 9:17:28 EDT Transfer of Care Communication Order - Ordered -- RAMBO morales in 1 week. See discharge paperwork., 07/26/22 9:17:28 EDT Transfer of Care Orders Electronically Signed By - Ordered -- 07/26/22 9:17:00 EDT, BYRON STUBBS, TRACE Sprague Transfer of Care Prognosis - Ordered -- Good, Patient Aware: Yes Transfer of Care Rehab Potential - Ordered -- Rehab potential kelley, 07/26/22 9:17:28 EDT Someone Will Contact You Regarding These Home Health Referrals No home referrals have been ordered for you. No one will call you. Allergies Flexeril Zanaflex Medications Please ask your primary doctor or pharmacist before taking any other medication not listed, including over the counter drugs, herbal medications, vitamins and or supplements as they may interact withyour home medications. What How Much When Instructions Last Dose New docusate (Colace 100 mg oral capsule) 1 cap by mouth Two (2) times a day as needed for Constipation New docusate-senna (docusate-senna 50 mg-8.6 mg oral tablet) 1 tab(s) by mouth Two (2) times a day New heparin (heparin 5000 units/ mL injection) 1 Milliliter Subcutaneous Every 8 hours New insulin lispro (HumaLOG) (HumaLOG 100 units/ mL subcutaneous solution) Give 0-10 units/dose Subcutaneous Three (3) times a day before meals New melatonin 5 Milligram by mouth Daily at bedtime as needed for Sleep New nystatin topical (nystatin 100,000 units/ g topical powder) 1 application Topical As Directed New oxyCODONE (oxyCODONE 5 mg oral tablet ( IMMEDIATE release )) 1 tab(s) by mouth Every 6 hours as needed for Pain, scale 4-10 New pantoprazole (pantoprazole 40 mg oral enteric coated tablet) 1 tab(s) by mouth Once a day before a meal New polyethylene glycol 3350 by mouth Once a day New polyethylene glycol 3350 by mouth Once a day as needed for Constipation Changed gabapentin (gabapentin 300 mg oral capsule) 1 cap by mouth Three (3) times a day Unchanged estradiol topical (estradiol 0.1 mg/ g vaginal cream) 1 Applicatorful Vaginal Twice a week Duration: 30 Days Unchanged losartan (losartan 100 mg oral tablet) 1 tab(s) by mouth Once a day Unchanged metoprolol (metoprolol succinate 50 mg oral TABLET extended release) 1 tab(s) by mouth Once a day Unchanged simvastatin (simvastatin 10 mg oral tablet) 1 tab(s) by mouth Daily at bedtime What How Much When Why Comments Stop Taking aspirin (aspirin 81 mg oral delayed release tablet) 1 tab(s) by mouth Every day Stop Taking diclofenac (diclofenac potassium 50 mg oral tablet) 1 tab(s) by mouth Once a day Stop Taking dicyclomine (dicyclomine 20 mg oral tablet) 1 tab(s) by mouth Two (2) times a day Duration: 90 Days Stop Taking furosemide (Lasix 20 mg oral tablet) 1 tab(s) by mouth Two (2) times a day Stop Taking glimepiride (glimepiride 4 mg oral tablet) 1 tab(s) by mouth Once a day Diarrhea Diabetes mellitus type 2 Stop Taking mirabegron (Myrbetriq 25 mg oral tablet, extended release) 1 tab(s) by mouth Once a day Stop Taking nitroGLYcerin (nitroglycerin 0.4 mg sublingual tablet) 1 tab(s) under the tongue Every 5 minutes Stop Taking omeprazole (omeprazole 20 mg oral delayed release capsule) 1 cap by mouth Once a day before a meal as needed for abdominal discomfort Stop Taking oxybutynin (oxybutynin 5 mg oral tablet) 1 tab(s) by mouth Once a day Please take this list to your next doctor s visit. Bring all medications you take, including over the counter medications, herbals and other supplements with you to your doctor s visit. Patients and families are reminded to discard old lists and to update any records with all medication providers or retail pharmacies. Additional Information VACCINATE! IT SAVES LIVES! Members of the community who have not yet received the COVID-19 vaccine and would like to receive it can visit one of [facility] vaccine clinics. There are many vaccine clinic locations within the [facility]. For locations and available times, please visit [email or web address] It is important to note that some COVID mobile vaccine clinics are held outdoors and may be canceled in rainy or stormy conditions. To learn more about pediatric vaccinations (ages 5-11), we invite you to visit the [facility] webpage. [email or web address]/pages/[email or web address]-Jzgvgqongln-Bkpjyetrkc-[email or web address]-Hub stions.htmlTo learn more about the COVID-19 vaccine, we invite you to visit the [employer] website for a list of frequently asked questions. [email or web address]/[email or web address] _[email or web address].pdf [facility] Patient Portal Access Instructions: Stay connected with your healthcare team and access your personal medical information anytime with the [facility] Patient Portal.If you would like a full copy of your medical records, please contact the [facility] Medical Records Department, Tuesday through Tuesday between 8a.m. and 4:30p.m. Please follow the directions below to access the portal: 1.Access the email account you provided upon registration to the [facility].2.Look for an invitation email from [facility].3.Open the email and access the invitation link: Accept Invitation to [facility].Fill in the required quijano to create your account. Sign into [email or web address] with your username and password that you created in the above steps to stay up to date. You can then view a summary of results, a summary of your visits, and the ability to download your summaries to your computer or send the information securely to a physician. Remember that your healthcare information is confidential, so carefully consider who you will allow to register on the [facility] Patient Portal for access to your information. You can also access the [facility] Patient Portal on the [employer]. Simply click on "Health Records" under "[employer] 2000" and then click on the [facility] logo. HOW TO SAFELY DISPOSE OF PRESCRIPTION MEDICATIONS Please use one of the following methods to safely dispose of your unused medications. 1.Use a drug disposal kit: the drug disposal pouch allows you to safely discard your old and unuseddrugs. Ask your nurse to give you one when you are discharged.2.Visit a local take-back location: Many local pharmacies and police departments have programs that collect old and unwanted prescriptiondrugs. Call your local pharmacy or go to http://bit.Naiku/1A9Xb7i to find one close to you.3.Make use of household items: Use cat litter or old coffee grounds to dispose medications if other options arenot available. Mix your drugs with these household products, seal them in an airtight container andthrow it into the garbage. Call [facility]: [phone] to be sure your drugs can be disposed of in this way. Some medicines may require a different approach.4.Never flush your medications down the toilet. IF YOU HAVE BEEN PRESCRIBED AN OPIOID FOR PAIN If you have been prescribed an opioid (such as hydrocodone, oxycodone or morphine), it is critical to understand the possible side effects and risks of opioid pain medications. Even when taken as directed, opioids can have several side effects including: Tolerance, meaning you might need to take more of a medication for the same pain relief. Nausea, vomiting and/or constipation. Sleepiness, dizziness, dry mouth, confusion, depression or itching. Physical dependence, meaning you have withdrawal symptoms when a medication is stopped, can develop within a few days. KNOW YOUR RESPONSIBILITIES It is important to know exactly how much and how often to take the opioid pain medications you are prescribed. Never take opioids in higher amounts or more often than prescribed. Do not combine opioids with alcohol or other drugs that cause drowsiness, such as benzodiazepines, also known as benzos, including diazepam and alprazolam, muscle relaxants or sleep aids. Never sell or share prescription opioids. This is illegal. Store opioids in a secure place and out of reach of others (including children, family, friends and visitors). The last page of this document has been signed and retained as a CHART COPY. Signatures Patient Education Materials Medication Leaflets My discharge plan and instructions have been reviewed and explained to me and I,POLI RAMIREZ understand my current condition and have read and understand these discharge instructions. I have received a written copy of the plan/instructions. If I have questions, I am aware that I should contact my d octor. Patient/Cake Wrapper Signature: Date/Time: Relationship to Patient: Witness Name/Signature: [id number] Discharge Instructions Thank you for allowing [facility] to assist you with your healthcare needs. The following is importantdischarge information regarding your hospital visit. 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 What to do next Instructions From Your Doctor Repeat bilateral lower extremity dopplers on 07/28/2022 and send results to FREDY Edmonds Neck Xray at [facility], Ground floor Radiology Dept on 08/10/2022 at 10:30am. After xray is completed, then go to Dr Matthews's office for follow-up appointment for re-evaluation and review of neck xray. Follow up appointment will be with Dr. Matthews's Nurse Practitioner, Renetta Rojo CNP. No aspirin, aspirin products, NSAIDS until cleared by Neurosurgery. Shalini brace is to be worn at all times. No lifting more than 10 lbs. Surgical incision care posterior neck: Change dry sterile dressing daily over surgical incision Change sterile gauze and apply Neosporin twice daily to top portion of incision (about the first 2 cm of the incision). Small scab was noted in this area, if noted to have wound breakdown, please contact Dr. Matthwes's office immediately Keep incision dry until completely healed and cleared by neurosurgery. No soaking incision for 6 weeks post-op (no tub baths, hot tubs, saunas, swimming, etc.) If surgical incision becomes red, swollen, painful, opens and/or has drainage on around site, or ifyou develop a fever contact Neurosurgery office immediately. Please contact neurosurgery office with any new or worsening symptoms. Scheduled Follow-Up Appointments Appointment Type When Where Contact InformationNS Post Op 08/10/2022 11:00 AM EDT Neurosurgery [address] [phone] Follow Up Appointments Follow Up with BYRON STUBBS, TRACE Sprague, Neurosurgery When 08/10/2022 11:00 AM EDT Where: 2600 [facility] [address] [place] [address] [place] [address]- [phone] Follow Up with [facility] [phone] skilled When Within 1-2 days Follow Up with BARBER CARLISLE When Within 1-2 days Where: [address] [facility] [address] [phone] Business (1) The Following Activity and Diet Have Been Ordered for You Transfer of Care Activity - Ordered -- Activity As Tolerated, Must wear shalini brace at all times. When brace needs readjusted, lay patient flat and logroll supporting C-spine AT ALL TIMES with 1 2 assistance, 07/26/22 9:17:00 EDT Transfer of Care Diet - Ordered -- Type of Diet: Regular Diet, Calories Permitted: 2000 kcal, 07/26/22 9:17:00 EDT The Following Equipment Has Been Ordered for You Discharge Home Equipment Discharge Blood Glucose Monitoring - Ordered -- When to Test: Before each meal and at bedtime Transfer of Care Wound Care - Ordered -- Dressing Type: Dry sterile drsg, Change Dressing: Change dressing daily., Change dry sterile dressing daily over surgical incision. Remove Shalini brace while patient is flat logroll, and support C-spine at all times, 07/26/22 9:17:00 EDT Transfer of Care Wound Care - Ordered -- Dressing Type: Dry sterile drsg, Neck, posterior, Change Dressing: Twice daily, Top portion of cervical incision: Replace piece of dry sterile gauze twice daily and apply Neosporin to first 2 cm of surgical incision. Small scab/open area. Call with... The Following Treatments Have Been Ordered for You Discharge Labs No qualifying data available. Discharge Radiology Transfer of Care Radiology - Ordered -- Bilateral lower extremity Dopplers, DVT, Send results to PCP Barber Carlisle, 07/26/22 9:17:00 EDT Transfer of Care Radiology - Ordered -- Cervical spine x-ray, Cervical fusion, Sitting lateral cervical spine x-ray with Shalini brace on 30 minutes prior to office visit with Dr. Matthews 08/10/2022 at 10:30 AM, 07/26/22 9:17:00 EDT Other Therapies Discharge Blood Glucose Monitoring - Ordered -- When to Test: Before each meal and at bedtime Transfer of Care OT - Ordered -- Reason for therapy: mobilization, ADL's, and strengthening, 07/26/22 9:17:00 EDT Transfer of Care PT - Ordered -- Reason for therapy: mobilization and strengthening, 07/26/22 9:17:00 EDT Post Acute Orders Transfer of Care Admission Level of Care - Ordered -- Level of Care SNF, 07/26/22 9:17:28 EDT Transfer of Care Code Status - Ordered -- Full Code, Constant Order Transfer of Care Communication Order - Ordered -- Expect less than 30 day stay., 07/26/22 9:17:28 EDT Transfer of Care Communication Order - Ordered -- RAMBO morales in 1 week. See discharge paperwork., 07/26/22 9:17:28 EDT Transfer of Care Orders Electronically Signed By - Ordered -- 07/26/22 9:17:00 EDT, BYRON STUBBS, TRACE Sprague Transfer of Care Prognosis - Ordered -- Good, Patient Aware: Yes Transfer of Care Rehab Potential - Ordered -- Rehab potential good, 07/26/22 9:17:28 EDT Someone Will Contact You Regarding These Home Health Referrals No home referrals have been ordered for you. No one will call you. Allergies Flexeril Zanaflex Medications Please ask your primary doctor or pharmacist before taking any other medication not listed, including over the counter drugs, herbal medications, vitamins and or supplements as they may interact withyour home medications. What How Much When Instructions Last Dose New docusate (Colace 100 mg oral capsule) 1 cap by mouth Two (2) times a day as needed for Constipation New docusate-senna (docusate-senna 50 mg-8.6 mg oral tablet) 1 tab(s) by mouth Two (2) times a day New heparin (heparin 5000 units/ mL injection) 1 Milliliter Subcutaneous Every 8 hours New insulin lispro (HumaLOG) (HumaLOG 100 units/ mL subcutaneous solution) Give 0-10 units/dose Subcutaneous Three (3) times a day before meals New melatonin 5 Milligram by mouth Daily at bedtime as needed for Sleep New nystatin topical (nystatin 100,000 units/ g topical powder) 1 application Topical As Directed New oxyCODONE (oxyCODONE 5 mg oral tablet ( IMMEDIATE release )) 1 tab(s) by mouth Every 6 hours as needed for Pain, scale 4-10 New pantoprazole (pantoprazole 40 mg oral enteric coated tablet) 1 tab(s) by mouth Once a day before a meal New polyethylene glycol 3350 by mouth Once a day New polyethylene glycol 3350 by mouth Once a day as needed for Constipation Changed gabapentin (gabapentin 300 mg oral capsule) 1 cap by mouth Three (3) times a day Unchanged estradiol topical (estradiol 0.1 mg/ g vaginal cream) 1 Applicatorful Vaginal Twice a week Duration: 30 Days Unchanged losartan (losartan 100 mg oral tablet) 1 tab(s) by mouth Once a day Unchanged metoprolol (metoprolol succinate 50 mg oral TABLET extended release) 1 tab(s) by mouth Once a day Unchanged simvastatin (simvastatin 10 mg oral tablet) 1 tab(s) by mouth Daily at bedtime What How Much When Why Comments Stop Taking aspirin (aspirin 81 mg oral delayed release tablet) 1 tab(s) by mouth Every day Stop Taking diclofenac (diclofenac potassium 50 mg oral tablet) 1 tab(s) by mouth Once a day Stop Taking dicyclomine (dicyclomine 20 mg oral tablet) 1 tab(s) by mouth Two (2) times a day Duration: 90 Days Stop Taking furosemide (Lasix 20 mg oral tablet) 1 tab(s) by mouth Two (2) times a day Stop Taking glimepiride (glimepiride 4 mg oral tablet) 1 tab(s) by mouth Once a day Diarrhea Diabetes mellitus type 2 Stop Taking mirabegron (Myrbetriq 25 mg oral tablet, extended release) 1 tab(s) by mouth Once a day Stop Taking nitroGLYcerin (nitroglycerin 0.4 mg sublingual tablet) 1 tab(s) under the tongue Every 5 minutes Stop Taking omeprazole (omeprazole 20 mg oral delayed release capsule) 1 cap by mouth Once a day before a meal as needed for abdominal discomfort Stop Taking oxybutynin (oxybutynin 5 mg oral tablet) 1 tab(s) by mouth Once a day Please take this list to your next doctor s visit. Bring all medications you take, including over the counter medications, herbals and other supplements with you to your doctor s visit. Patients and families are reminded to discard old lists and to update any records with all medication providers or retail pharmacies. Additional Information VACCINATE! IT SAVES LIVES! Members of the community who have not yet received the COVID-19 vaccine and would like to receive it can visit one of [facility] vaccine clinics. There are many vaccine clinic locations within the [facility]. For locations and available times, please visit [email or web address]/. It is important to note that some COVID mobile vaccine clinics are held outdoors and may be canceled in rainy or stormy conditions. To learn more about pediatric vaccinations (ages 5-11), we invite you to visit the [facility] webpage. https://www.[email or web address].org/pages/[email or web address]-Yxsqmoolbev-Aevmdvhjtz-Lpnku-Han stions.htmlTo learn more about the COVID-19 vaccine, we invite you to visit the [facility] website for a list of frequently asked questions. [email or web address] _[email or web address].pdf [facility] Patient Portal Access Instructions: Stay connected with your healthcare team and access your personal medical information anytime with the [facility] Patient Portal.If you would like a full copy of your medical records, please contact the [facility] Medical Records Department, Tuesday through Tuesday between 8a.m. and 4:30p.m. Please follow the directions below to access the portal: 1.Access the email account you provided upon registration to the hospital.2.Look for an invitation email from [facility].3.Open the email and access the invitation link: Accept Invitation to [facility].Fill in the required quijano to create your account. Sign into [email or web address] with your username and password that you created in the above steps to stay up to date. You can then view a summary of results, a summary of your visits, and the ability to download your summaries to your computer or send the information securely to a physician. Remember that your healthcare information is confidential, so carefully consider who you will allow to register on the [facility] Patient Portal for access to your information. You can also access the [facility] Patient Portal on the [employer]cy. Simply click on "Health Records" under "HealthData" and then click on the [facility] logo. HOW TO SAFELY DISPOSE OF PRESCRIPTION MEDICATIONS Please use one of the following methods to safely dispose of your unused medications. 1.Use a drug disposal kit: the drug disposal pouch allows you to safely discard your old and unuseddrugs. Ask your nurse to give you one when you are discharged.2.Visit a local take-back location: Many local pharmacies and police departments have programs that collect old and unwanted prescriptiondrugs. Call your local pharmacy or go to http://[employer].Naiku/0C8Ed4r to find one close to you.3.Make use of household items: Use cat litter or old coffee grounds to dispose medications if other options arenot available. Mix your drugs with these household products, seal them in an airtight container andthrow it into the garbage. Call [facility]: [phone] to be sure your drugs can be disposed of in this way. Some medicines may require a different approach.4.Never flush your medications down the toilet. IF YOU HAVE BEEN PRESCRIBED AN OPIOID FOR PAIN If you have been prescribed an opioid (such as hydrocodone, oxycodone or morphine), it is critical to understand the possible side effects and risks of opioid pain medications. Even when taken as directed, opioids can have several side effects including: Tolerance, meaning you might need to take more of a medication for the same pain relief. Nausea, vomiting and/or constipation. Sleepiness, dizziness, dry mouth, confusion, depression or itching. Physical dependence, meaning you have withdrawal symptoms when a medication is stopped, can develop within a few days. KNOW YOUR RESPONSIBILITIES It is important to know exactly how much and how often to take the opioid pain medications you are prescribed. Never take opioids in higher amounts or more often than prescribed. Do not combine opioids with alcohol or other drugs that cause drowsiness, such as benzodiazepines, also known as benzos, including diazepam and alprazolam, muscle relaxants or sleep aids. Never sell or share prescription opioids. This is illegal. Store opioids in a secure place and out of reach of others (including children, family, friends and visitors). The last page of this document has been signed and retained as a CHART COPY. Signatures Patient Education Materials Medication Leaflets My discharge plan and instructions have been reviewed and explained to me and IVALERIY DONNA J understand my current condition and have read and understand these discharge instructions. I have received a written copy of the plan/instructions. If I have questions, I am aware that I should contact my d octor. 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 She is motivated to mobilize. She is asking when able to be discharged home. I explained she will need snf care, than goal with home-going. Admits to neck pain with intermittent muscle spasms no chest pain, or shortness of breath Objective Vitals and Measurements T: 36.8 C (Oral) TMIN: 36.6 C (Oral) TMAX: 36.9 C (Oral) HR: 86(Monitored) RR: 18 BP: 118/80 SpO2: 97% Intake and Output 7AM Yesterday to 7AM Today Intake and Output (Last 24 hours) Intake Oral Intake 560.00 Output Urine Voided 200.00 Urinary Catheter Output: 1600.00 Stool Count 1.00 Urine Count 2.00 Emesis Count 0.00 Total Summary Total Intake 560.00 Total Output 1800.00 Fluid Balance -1240.00 Physical Exam Patient is awake and alert sitting up in the chair. She admits that she occasionally wakes confusedto date/time, but otherwise no neurological issues. She is currently oriented x4. Speech is clear. She is wearing lumbar brace and tolerating fairly well. Encourage patient to use call light when needs to urinate or have a bowel movement. Light touch sensation is intact in all extremities. No worsening weakness, remains with slight weakness left youth agent strength and numbness in left hand. Weight Dosing Weight: 98.7 kg (07/13/22) Dosing Weight: 98.7 kg (07/11/22) Medications Medications (17) Active Scheduled: (10) atorvastatin 10 mg tablet 10 mg 1 tab(s), Oral, qHS bacitracin/neomycin/polymyxin B topical 400 units-3.5 mg-5000 units/g Ointment 1 marcy, Topical, BID docusate-senna (Senokot S) 50 mg-8.6 mg Tablet 1 tab(s), Oral, BID gabapentin 300 mg Capsule 300 mg 1 cap(s), Oral, TID heparin 5,000 units/mL (1 mL) vial 5,000 unit(s) 1 mL, Subcutaneous, q8h insulin lispro 100 units/mL Soln (3 mL) Give 0-10 units/dose, Subcutaneous, TIDAC losartan 50 mg tablet 50 mg 1 tab(s), Oral, qDay metoprolol succinate 50 mg ER tablet 50 mg 1 tab(s), Oral, qDayM pantoprazole 40 mg EC tablet 40 mg 1 tab(s), Oral, qDayAC polyethylene glycol 3350 - UD packet 17 gram(s) 15 mL, Oral, qDay Continuous: (0) PRN: (7) acetaminophen 325 mg Tablet 650 mg 2 tab(s), Oral, q6hr docusate sodium 100 mg Capsule 100 mg 1 cap(s), Oral, BID melatonin 5 mg tablet 5 mg 1 tab(s), Oral, qHS ondansetron 2 mg/ 1 mL 2 mL INJ 4 mg 2 mL, IV Push, q4h oxycodone 5 mg tablet (immediate release) 5 mg 1 tab(s), Oral, q4h polyethylene glycol 3350 - UD packet 17 gram(s) 15 mL, Oral, qDay prochlorperazine 10 mg/2 mL vial 5 mg 1 mL, IV Push, q4h Imaging Results and Diagnostics CT Spine Cervical w/o Contrast Result Date: July 14, 2022 Verified By: EDER CLARK MD CLINICAL STATEMENT: IMPRESSION: Instrumented posterior fusion of C2 through T2 and laminectomy of C2 throughC6. Bilateral pedicle fracture of C6 with extension distraction fracture [id number] no change in alignment. XR Spine Cervical Ap/Lat Result Date: July 13, 2022 Verified By: RICHAR HASSAN MD CLINICAL STATEMENT: IMPRESSION: Severely limited exam. A surgical sponge is not clearly identified. XR Fluoro 2 Hrs Tech Time Result Date: July 13, 2022 Verified By: EDER CLARK MD CLINICAL STATEMENT: IMPRESSION: Intraprocedural fluoroscopic spot images as above. See separate procedurereport for more information. XR Spine Cervical 1 View Result Date: July 12, 2022 Verified By: EDER CLARK MD CLINICAL STATEMENT: IMPRESSION: Nondiagnostic assessment of alignment of C6-C7 where known subluxation wasdemonstrated on prior CT scan. XR Spine Thoracic 1 View Result Date: July 11, 2022 Verified By: YOAV PALOMINO DO CLINICAL STATEMENT: IMPRESSION: Nearly nondiagnostic exam secondary to body habitus. No obvious compressionfracture or spondylolisthesis in the visualized spine. ATTENDING ADDENDUM: This exam is nondiagnostic to excludethoracic fracture or traumaticmalalignment, especially in the setting of known cervical spine fractu re.Exam is limited secondary to portable cross-table lateral technique. XR Spine Cervical 1 View Result Date: July 11, 2022 Verified By: YOAV PALOMINO DO CLINICAL STATEMENT: IMPRESSION: Limited exam secondary to inability to perform swimmer's view. Anterior discspace widening at C6-7 is again noted, however C7 is not well demonstratedand subluxation cannot be adequately assessed. I have reviewed the resident's preliminary report and agree with findings andimpression. MRI Spine Cervical w/o Contrast Result Date: July 11, 2022 Verified By: ROBERTA ROSARIO MD CLINICAL STATEMENT: IMPRESSION: Displaced and distracted C6-C7 fracture. There is stenosis at this level,but there is no definite cord compression and there is no abnormal signal inthe cord at this or any other level. 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 Milder degenerative changes at the remaining levels. Mild stenosis at C4-C5and C5-C6. Signal changes in the ishmael, likely small vessel ischemic disease. Assessment/Plan 1. S/P fall, resulting in C6-7 distraction injury with bilateral pedicle fractures 2. S/P C2-C7 decompressive laminectomy, C2-T2 posterior bone screw/merari fixation and fusion 3. DM2 (diabetes mellitus, type 2) 4. Hypertension 5. Chronic respiratory failure with hypoxia, on home oxygen therapy 2L [place] 6. E-coli UTI 7. Acute DVT (deep venous thrombosis) right soleal vein. Unstable cervical injury POD #13 C2-C7 posterior cervical decompressive laminectomy and C2-T2 posterior cervical instrumented fusion Keep Shalini brace on at all times Continue to change anterior portion of posterior cervical incision and apply Neosporin twice daily to 2 cm scabbed area Vitals remained stable. No new neurological complaints or exam findings. Continue PT/OT, mobilize frequently. Hopefully discharge today Digitally Signed by NITA MADERA on 07/26/2022 06:15 AM [id number] Note Date of Service 07/25/2022 Neurosurgical CC: Unstable cervical spine injury, post repair POD #12, C2-C7 posterior cervical decompressive laminectomy and C2-T2 posterior cervical instrumented fusion Patient remains in the hospital awaiting precertification for snf facility No acute events overnight. Patient has no new complaints today. Objective Vitals and Measurements T: 36.6 C (Oral) TMIN: 36.6 C (Oral) TMAX: 37.0 C (Oral) HR: 95(Monitored) RR: 16 BP: 123/54 SpO2: 96% Intake and Output 7AM Yesterday to 7AM Today Intake and Output (Last 24 hours) Intake Oral Intake 600.00 Supplement Intake 240.00 Output Urinary Catheter Output: 1300.00 Stool Count 0.00 Emesis Count 0.00 Total Summary Total Intake 840.00 Total Output 1300.00 Fluid Balance -460.00 Physical Exam Patient is resting comfortably. She is easily awakened. She is speaking clearly, oriented appropriately. She moves all 4 extremities well, left upper extremity remains weaker than bilateral lower andright upper extremity. Light touch sensation is intact. She continues to wear Shalini brace and fairly tolerable of it Lungs are clear and equal. I encourage incentive spirometry use while lying in bed, and encouraged getting up to the chair multiple times a day. Patient prefers to sit up in the chair as she states it is more comfortable. Urinating well, bowel movement 07/23/2022. Heart rate is regular, blood pressure and vitals are stable. Remains afebrile and no new changes or complaints. Weight Dosing Weight: 98.7 kg (07/13/22) Dosing Weight: 98.7 kg (07/11/22) Medications Medications (17) Active Scheduled: (10) atorvastatin 10 mg tablet 10 mg 1 tab(s), Oral, qHS bacitracin/neomycin/polymyxin B topical 400 units-3.5 mg-5000 units/g Ointment 1 marcy, Topical, BID docusate-senna (Senokot S) 50 mg-8.6 mg Tablet 1 tab(s), Oral, BID gabapentin 300 mg Capsule 300 mg 1 cap(s), Oral, TID heparin 5,000 units/mL (1 mL) vial 5,000 unit(s) 1 mL, Subcutaneous, q8h insulin lispro 100 units/mL Soln (3 mL) Give 0-10 units/dose, Subcutaneous, TIDAC losartan 50 mg tablet 50 mg 1 tab(s), Oral, qDay metoprolol succinate 50 mg ER tablet 50 mg 1 tab(s), Oral, qDayM pantoprazole 40 mg EC tablet 40 mg 1 tab(s), Oral, qDayAC polyethylene glycol 3350 - UD packet 17 gram(s) 15 mL, Oral, qDay Continuous: (0) PRN: (7) acetaminophen 325 mg Tablet 650 mg 2 tab(s), Oral, q6hr docusate sodium 100 mg Capsule 100 mg 1 cap(s), Oral, BID melatonin 5 mg tablet 5 mg 1 tab(s), Oral, qHS ondansetron 2 mg/ 1 mL 2 mL INJ 4 mg 2 mL, IV Push, q4h oxycodone 5 mg tablet (immediate release) 5 mg 1 tab(s), Oral, q4h polyethylene glycol 3350 - UD packet 17 gram(s) 15 mL, Oral, qDay prochlorperazine 10 mg/2 mL vial 5 mg 1 mL, IV Push, q4h Imaging Results and Diagnostics CT Spine Cervical w/o Contrast Result Date: July 14, 2022 Verified By: EDER CLARK MD CLINICAL STATEMENT: IMPRESSION: Instrumented posterior fusion of C2 through T2 and laminectomy of C2 throughC6. Bilateral pedicle fracture of C6 with extension distraction fracture C6-[id number] no change in alignment. XR Spine Cervical 1 View Result Date: July 12, 2022 Verified By: EDER CLARK MD CLINICAL STATEMENT: IMPRESSION: Nondiagnostic assessment of alignment of C6-C7 where known subluxation wasdemonstrated on prior CT scan. XR Spine Thoracic 1 View Result Date: July 11, 2022 Verified By: YOAV PALOMINO DO CLINICAL STATEMENT: IMPRESSION: Nearly nondiagnostic exam secondary to body habitus. No obvious compressionfracture or spondylolisthesis in the visualized spine. ATTENDING ADDENDUM: This exam is nondiagnostic to excludethoracic fracture or traumaticmalalignment, especially in the setting of known cervical spine fractu re.Exam is limited secondary to portable cross-table lateral technique. XR Spine Cervical 1 View Result Date: July 11, 2022 Verified By: YOAV PALOMINO DO CLINICAL STATEMENT: IMPRESSION: Limited exam secondary to inability to perform swimmer's view. Anterior discspace widening at C6-7 is again noted, however C7 is not well demonstratedand subluxation cannot be adequately assessed. I have reviewed the resident's preliminary report and agree with findings andimpression. MRI Spine Cervical w/o Contrast Result Date: July 11, 2022 Verified By: ROBERTA ROSARIO MD CLINICAL STATEMENT: IMPRESSION: Displaced and distracted C6-C7 fracture. There is stenosis at this level,but there is no definite cord compression and there is no abnormal signal inthe cord at this or any other level. 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 Milder degenerative changes at the remaining levels. Mild stenosis at C4-C5and C5-C6. Signal changes in the ishmael, likely small vessel ischemic disease. Assessment/Plan 1. S/P fall, resulting in C6-7 distraction injury with bilateral pedicle fractures 2. S/P C2-C7 decompressive laminectomy, C2-T2 posterior bone screw/merari fixation and fusion 3. DM2 (diabetes mellitus, type 2) 4. Hypertension 5. Chronic respiratory failure with hypoxia, on home oxygen therapy 2L [place] 6. E-coli UTI 7. Acute DVT (deep venous thrombosis) right soleal vein. Unstable cervical injury POD #12 C2-C7 posterior cervical decompressive laminectomy and C2-T2 posterior cervical instrumented fusion Keep Shalini brace on at all times Continue to change anterior portion of posterior cervical incision and apply Neosporin twice daily to 2 cm scabbed area Mobilize frequently. Up to the chair for all meals Discharge as soon as precertification is available. Patient is motivated to participate with therapy and with a goal of returning home as soon as able Digitally Signed by NITA MADERA APRN-SILVINO on 07/25/2022 05:40 AM [id number] Note Date of Service 07/23/[address] Matthews Neurosurgical CC: Unstable cervical spine injury POD #11 C2-C7 posterior cervical decompressive laminectomy C2-T2 instrumented fusion Patient has no new complaints today. She continues to complain of left upper extremity discomfort and posterior neck pain, but overall controlled with pain medications No acute events overnight Patient remains ready for discharge Objective Vitals and Measurements T: 37.0 C (Oral) TMIN: 36.7 C (Oral) TMAX: 38.2 C (Oral) HR: 88(Apical) RR: 18 BP: 122/56 SpO2: 96% Intake and Output 7AM Yesterday to 7AM Today Intake and Output (Last 24 hours) Intake Oral Intake 900.00 Output Urinary Catheter Output: 2000.00 Stool Count 1.00 Emesis Count 0.00 Total Summary Total Intake 900.00 Total Output 2000.00 Fluid Balance -1100.00 Physical Exam Patient is awake and alert. She is moving all extremities well during evaluation. Tolerating oral intake well. Continues to get up to the chair multiple times during the day. Wearing Shalini brace at all times, tolerating fairly well. Cervical/thoracic incision is well approximated. Changing upper portion of incision twice daily andplacing Neosporin with dry sterile gauze. Small scabbed area at the top of the incision Weight Dosing Weight: 98.7 kg (07/13/22) Dosing Weight: 98.7 kg (07/11/22) Medications Medications (17) Active Scheduled: (10) atorvastatin 10 mg tablet 10 mg 1 tab(s), Oral, qHS bacitracin/neomycin/polymyxin B topical 400 units-3.5 mg-5000 units/g Ointment 1 marcy, Topical, BID docusate-senna (Senokot S) 50 mg-8.6 mg Tablet 1 tab(s), Oral, BID gabapentin 300 mg Capsule 300 mg 1 cap(s), Oral, TID heparin 5,000 units/mL (1 mL) vial 5,000 unit(s) 1 mL, Subcutaneous, q8h insulin lispro 100 units/mL Soln (3 mL) Give 0-10 units/dose, Subcutaneous, TIDAC losartan 50 mg tablet 50 mg 1 tab(s), Oral, qDay metoprolol succinate 50 mg ER tablet 50 mg 1 tab(s), Oral, qDayM pantoprazole 40 mg EC tablet 40 mg 1 tab(s), Oral, qDayAC polyethylene glycol 3350 - UD packet 17 gram(s) 15 mL, Oral, qDay Continuous: (0) PRN: (7) acetaminophen 325 mg Tablet 650 mg 2 tab(s), Oral, q6hr docusate sodium 100 mg Capsule 100 mg 1 cap(s), Oral, BID melatonin 5 mg tablet 5 mg 1 tab(s), Oral, qHS ondansetron 2 mg/ 1 mL 2 mL INJ 4 mg 2 mL, IV Push, q4h oxycodone 5 mg tablet (immediate release) 5 mg 1 tab(s), Oral, q4h polyethylene glycol 3350 - UD packet 17 gram(s) 15 mL, Oral, qDay prochlorperazine 10 mg/2 mL vial 5 mg 1 mL, IV Push, q4h Lab Results No 36 Hour Lab Data Imaging Results and Diagnostics XR Chest 1 View Result Date: July 15, 2022 Verified By: EDER CLARK MD CLINICAL STATEMENT: IMPRESSION: No significant interval change, with persistent bibasilarinfiltrates/atelectasis and small left pleural effusion. I have personally reviewed the images of this examination, and agree withtheresident's findings and interpretation. XR Enteric Tube Placement Result Date: July 14, 2022 Verified By: ALDO DEVINE MD CLINICAL STATEMENT: IMPRESSION: Appropriate positioning of the OG tube. XR Chest 1 View Result Date: July 14, 2022 Verified By: EDER CLARK MD CLINICAL STATEMENT: IMPRESSION: Grossly unchanged bibasilar infiltrates/atelectasis and small left pleuraleffusion. I have personally reviewed the images of this examination, and agree with theresident's findings and interpretation. CT Spine Cervical w/o Contrast Result Date: July 14, 2022 Verified By: EDER CLARK MD CLINICAL STATEMENT: IMPRESSION: Instrumented posterior fusion of C2 through T2 and laminectomy of C2 throughC6. Bilateral pedicle fracture of C6 with extension distraction fracture C6-[id number] no change in alignment. XR Chest 1 View Result Date: July 13, 2022 Verified By: JARETH MAK MD CLINICAL STATEMENT: IMPRESSION: 1. Endotracheal tube terminating approximately 5.3 cm above the judith. 2. Interval placement surgical hardware throughout the cervical spine 3. Unchanged bibasilar reticular opacities favoring atelectasis withadditional airspace disease felt to be less likely however not excluded. 4. Unchanged small left pleural effusion. I have personally reviewed the images of this examination and agree with theresident's findings and interpretation. XR Spine Cervical Ap/Lat Result Date: July 13, 2022 Verified By: ROMINA STUBBS, RICHAR Mohan CLINICAL STATEMENT: IMPRESSION: Severely limited exam. A surgical sponge is not clearly identified. XR Fluoro 2 Hrs Tech Time Result Date: July 13, 2022 Verified By: EDER CLARK MD CLINICAL STATEMENT: IMPRESSION: Intraprocedural fluoroscopic spot images as above. See separate procedurereport for more information. XR Chest 1 View Result Date: July 12, 2022 Verified By: GRETCHEN TAYLOR MD CLINICAL STATEMENT: IMPRESSION: No significant change in the bibasilar atelectasis or other airspace diseaseand small left pleural effusion. XR Spine Cervical 1 View Result Date: July 12, 2022 Verified By: EDER CLARK MD CLINICAL STATEMENT: IMPRESSION: Nondiagnostic assessment of alignment of C6-C7 where known subluxation wasdemonstrated on prior CT scan. XR Spine Thoracic 1 View Result Date: July 11, 2022 Verified By: YOAV PALOMINO DO CLINICAL STATEMENT: IMPRESSION: Nearly nondiagnostic exam secondary to body habitus. No obvious compressionfracture or spondylolisthesis in the visualized spine. ATTENDING ADDENDUM: This exam is nondiagnostic to excludethoracic fracture or traumaticmalalignment, especially in the setting of known cervical spine fractu re.Exam is limited secondary to portable cross-table lateral technique. XR Spine Cervical 1 View Result Date: July 11, 2022 Verified By: YOAV PALOMINO DO CLINICAL STATEMENT: IMPRESSION: Limited exam secondary to inability to perform swimmer's view. Anterior discspace widening at C6-7 is again noted, however C7 is not well demonstratedand subluxation cannot be adequately assessed. I have reviewed the resident's preliminary report and agree with findings andimpression. MRI Spine Cervical w/o Contrast Result Date: July 11, 2022 Verified By: ROBERTA ROSARIO MD CLINICAL STATEMENT: IMPRESSION: Displaced and distracted C6-C7 fracture. There is stenosis at this level,but there is no definite cord compression and there is no abnormal signal inthe cord at this or any other level. 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 Milder degenerative changes at the remaining levels. Mild stenosis at C4-C5and C5-C6. Signal changes in the ishmael, likely small vessel ischemic disease. EKG No qualifying data available. Assessment/Plan 1. S/P fall, resulting in C6-7 distraction injury with bilateral pedicle fractures 2. S/P C2-C7 decompressive laminectomy, C2-T2 posterior bone screw/merari fixation and fusion 3. DM2 (diabetes mellitus, type 2) 4. Hypertension 5. Chronic respiratory failure with hypoxia, on home oxygen therapy 2L [place] 6. E-coli UTI 7. Acute DVT (deep venous thrombosis) right soleal vein. POD #11, s/p C2-C7 posterior cervical decompressive laminectomy and C2-T2 instrumented fusion on 07/13/2022 Shalini brace on at all times Change surgical dressing daily, replace top portion of dressing twice daily and cover scabbed area with Neosporin/dry sterile dressing Follow-up appointment arranged with Dr. Matthews in 2 weeks with cervical spine x- ray prior to the office visit Discussed case with licensed bondsman. Aware patient remains ready for discharge. Digitally Signed by NITA MADERA APRN-SILVINO on 07/24/2022 11:41 AM [id number] Note Chief Complaint Pain Subjective Pain under much better control here today. Tolerating PO oxycodone well. Tolerating food well but minimal appetite. No CP or SOB. Feels a bit weak overall. Physical Examination General: No apparent distress. Alert and appropriate. HEENT: EOMI Neck: Supple. Cardiovascular: S1 S2 + Respiratory: Bilaterally clear breath sounds with no crepitation or wheeze. Abdominal: Soft, benign. Extremities: No edema. Adequate peripheral circulation. Neurological: Grossly intact without focal deficit. Cerebellar function preserved. Objective Vitals and Measurements T: 36.8 C (Oral) TMIN: 36.7 C (Oral) TMAX: 37.0 C (Oral) HR: 100(Monitored) RR: 18 BP: 128/53 SpO2:98% Intake and Output 7AM Yesterday to 7AM Today Intake and Output (Last 24 hours) Intake Output Urinary Catheter Output: 1700.00 Stool Count 1.00 Emesis Count 0.00 Total Summary Total Intake 0.00 Total Output 1700.00 Fluid Balance -1700.00 Physical Exam Weight Dosing Weight: 98.7 kg (07/13/22) Dosing Weight: 98.7 kg (07/11/22) Medications Medications (17) Active Scheduled: (10) atorvastatin 10 mg tablet 10 mg 1 tab(s), Oral, qHS bacitracin/neomycin/polymyxin B topical 400 units-3.5 mg-5000 units/g Ointment 1 marcy, Topical, BID docusate-senna (Senokot S) 50 mg-8.6 mg Tablet 1 tab(s), Oral, BID gabapentin 300 mg Capsule 300 mg 1 cap(s), Oral, TID heparin 5,000 units/mL (1 mL) vial 5,000 unit(s) 1 mL, Subcutaneous, q8h insulin lispro 100 units/mL Soln (3 mL) Give 0-10 units/dose, Subcutaneous, TIDAC losartan 50 mg tablet 50 mg 1 tab(s), Oral, qDay metoprolol succinate 50 mg ER tablet 50 mg 1 tab(s), Oral, qDayM pantoprazole 40 mg EC tablet 40 mg 1 tab(s), Oral, qDayAC polyethylene glycol 3350 - UD packet 17 gram(s) 15 mL, Oral, qDay Continuous: (0) PRN: (7) acetaminophen 325 mg Tablet 650 mg 2 tab(s), Oral, q6hr docusate sodium 100 mg Capsule 100 mg 1 cap(s), Oral, BID melatonin 5 mg tablet 5 mg 1 tab(s), Oral, qHS ondansetron 2 mg/ 1 mL 2 mL INJ 4 mg 2 mL, IV Push, q4h oxycodone 5 mg tablet (immediate release) 5 mg 1 tab(s), Oral, q4h polyethylene glycol 3350 - UD packet 17 gram(s) 15 mL, Oral, qDay prochlorperazine 10 mg/2 mL vial 5 mg 1 mL, IV Push, q4h Lab Results No 36 Hour Lab Data EKG No qualifying data available. Assessment/Plan 1. S/P fall, resulting in C6-7 distraction injury with bilateral pedicle fractures 2. S/P C2-C7 decompressive laminectomy, C2-T2 posterior bone screw/merari fixation and fusion 3. DM2 (diabetes mellitus, type 2) 4. Hypertension 5. Chronic respiratory failure with hypoxia, on home oxygen therapy 2L [place] 6. E-coli UTI 7. Acute DVT (deep venous thrombosis) right soleal vein. Transient hypotension secondary to medications resolved. Oxycodone providing adequate pain control. Repeat Doppler US in 1 and 4 weeks to assess stability of new below knee DVT. Remains stable for DC per primary team, will sign off Digitally Signed by FABIANO RUBIO MD FACP on 07/23/2022 04:02 PM [id number] Note Date of Service 07/23/[address] Matthews Neurosurgical CC: Unstable cervical spine injury POD #10 C2-C7 posterior cervical decompressive laminectomy C2-T2 instrumented fusion Patient is overall doing well today. Had episode of hypotension yesterday due to tizanidine administration. Medication discontinued and patient received 1 L normal saline bolus and hypotension resolved. She has no new complaints today. Overall pain is well controlled. Patient is sitting up in the chair and tolerating Shalini brace fairly well, although she states she does not like the brace She denies feeling dizzy or drowsy, no shortness of breath or chest pain. Denies abdominal pain or nausea. Objective Vitals and Measurements T: 37 C (Oral) TMIN: 36.7 C (Oral) TMAX: 37.0 C (Oral) HR: 100(Monitored) RR: 18 BP: 139/65 SpO2: 94% Intake and Output 7AM Yesterday to 7AM Today Intake and Output (Last 24 hours) Intake Supplement Intake 480.00 Output Urinary Catheter Output: 1150.00 Stool Count 3.00 Emesis Count 0.00 Total Summary Total Intake 480.00 Total Output 1150.00 Fluid Balance -670.00 Physical Exam Patient is awake and alert sitting up in the chair. Shalini brace is on and properly fitting, overall tolerating fairly well. Lungs are clear/diminished bilaterally. She is on 2 L nasal cannula which is supplemental oxygen baseline for her. Heart rate is regular. Blood pressure stable. No further episodes of hypotension. Abdomen is soft, bowel sounds are present. Had bowel movements on 07/22/2022. She is tolerating oral intake well Posterior cervical incision is flat and covered with dry sterile dressing. Will be evaluated today while in bed when Shalini brace is off Weight Dosing Weight: 98.7 kg (07/13/22) Dosing Weight: 98.7 kg (07/11/22) Medications Medications (18) Active Scheduled: (11) atorvastatin 10 mg tablet 10 mg 1 tab(s), Oral, qHS ceFAZolin 1 gram(s) 10 mL, Topical (INT), PREOP pharm docusate-senna (Senokot S) 50 mg-8.6 mg Tablet 1 tab(s), Oral, BID gabapentin 300 mg Capsule 300 mg 1 cap(s), Oral, TID heparin 5,000 units/mL (1 mL) vial 5,000 unit(s) 1 mL, Subcutaneous, q8h insulin lispro 100 units/mL Soln (3 mL) Give 0-10 units/dose, Subcutaneous, TIDAC losartan 50 mg tablet 50 mg 1 tab(s), Oral, qDay metoprolol succinate 50 mg ER tablet 50 mg 1 tab(s), Oral, qDayM nystatin powder 100,000 units/g 15 Gram(s) 1 marcy, Topical, AsDirected pantoprazole 40 mg EC tablet 40 mg 1 tab(s), Oral, qDayAC polyethylene glycol 3350 - UD packet 17 gram(s) 15 mL, Oral, qDay Continuous: (0) PRN: (7) acetaminophen 325 mg Tablet 650 mg 2 tab(s), Oral, q6hr docusate sodium 100 mg Capsule 100 mg 1 cap(s), Oral, BID melatonin 5 mg tablet 5 mg 1 tab(s), Oral, qHS ondansetron 2 mg/ 1 mL 2 mL INJ 4 mg 2 mL, IV Push, q4h oxycodone 5 mg tablet (immediate release) 5 mg 1 tab(s), Oral, q4h polyethylene glycol 3350 - UD packet 17 gram(s) 15 mL, Oral, qDay prochlorperazine 10 mg/2 mL vial 5 mg 1 mL, IV Push, q4h Imaging Results and Diagnostics CT Spine Cervical w/o Contrast Result Date: July 14, 2022 Verified By: AMBER STUBBS, EDER Poe CLINICAL STATEMENT: IMPRESSION: Instrumented posterior fusion of C2 through T2 and laminectomy of C2 throughC6. Bilateral pedicle fracture of C6 with extension distraction fracture C6-[id number] no change in alignment. XR Spine Cervical 1 View Result Date: July 12, 2022 Verified By: AMBER STUBBS, EDER Poe CLINICAL STATEMENT: IMPRESSION: Nondiagnostic assessment of alignment of C6-C7 where known subluxation wasdemonstrated on prior CT scan. XR Spine Thoracic 1 View Result Date: July 11, 2022 Verified By: YOAV PALOMINO DO CLINICAL STATEMENT: IMPRESSION: Nearly nondiagnostic exam secondary to body habitus. No obvious compressionfracture or spondylolisthesis in the visualized spine. ATTENDING ADDENDUM: This exam is nondiagnostic to excludethoracic fracture or traumaticmalalignment, especially in the setting of known cervical spine fractu re.Exam is limited secondary to portable cross-table lateral technique. XR Spine Cervical 1 View Result Date: July 11, 2022 Verified By: YOAV PALOMINO DO CLINICAL STATEMENT: IMPRESSION: Limited exam secondary to inability to perform swimmer's view. Anterior discspace widening at C6-7 is again noted, however C7 is not well demonstratedand subluxation cannot be adequately assessed. I have reviewed the resident's preliminary report and agree with findings andimpression. MRI Spine Cervical w/o Contrast Result Date: July 11, 2022 Verified By: ROBERTA ROSARIO MD CLINICAL STATEMENT: IMPRESSION: Displaced and distracted C6-C7 fracture. There is stenosis at this level,but there is no definite cord compression and there is no abnormal signal inthe cord at this or any other level. 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 Milder degenerative changes at the remaining levels. Mild stenosis at C4-C5and C5-C6. Signal changes in the ishmael, likely small vessel ischemic disease. Assessment/Plan 1. S/P fall, resulting in C6-7 distraction injury with bilateral pedicle fractures 2. S/P C2-C7 decompressive laminectomy, C2-T2 posterior bone screw/merari fixation and fusion 3. DM2 (diabetes mellitus, type 2) 4. Hypertension 5. Chronic respiratory failure with hypoxia, on home oxygen therapy 2L [place] 6. E-coli UTI 7. Acute DVT (deep venous thrombosis) right soleal vein. POD #10, s/p C2-C7 posterior cervical decompressive laminectomy and C2-T2 instrumented fusion on 07/13/2022 Shalini brace on at all times Follow-up appointment arranged with Dr. Matthews in 2 weeks with cervical spine x- ray prior to the office visit Reevaluated by hospitalist physician yesterday post episode of hypotension transient from medication administration. Appreciate care provided. Discharge today Digitally Signed by NITA MADERA on 07/23/2022 06:18 AM [facility] [id number] Note Date of Service 07/23/[address] Matthews Neurosurgical CC: Unstable cervical spine injury POD #10 C2-C7 posterior cervical decompressive laminectomy C2-T2 instrumented fusion Patient is overall doing well today. Had episode of hypotension yesterday due to tizanidine administration. Medication discontinued and patient received 1 L normal saline bolus and hypotension resolved. She has no new complaints today. Overall pain is well controlled. Patient is sitting up in the chair and tolerating Shalini brace fairly well, although she states she does not like the brace She denies feeling dizzy or drowsy, no shortness of breath or chest pain. Denies abdominal pain or nausea. Objective Vitals and Measurements T: 37 C (Oral) TMIN: 36.7 C (Oral) TMAX: 37.0 C (Oral) HR: 100(Monitored) RR: 18 BP: 139/65 SpO2: 94% Intake and Output 7AM Yesterday to 7AM Today Intake and Output (Last 24 hours) Intake Supplement Intake 480.00 Output Urinary Catheter Output: 1150.00 Stool Count 3.00 Emesis Count 0.00 Total Summary Total Intake 480.00 Total Output 1150.00 Fluid Balance -670.00 Physical Exam Patient is awake and alert sitting up in the chair. Shalini brace is on and properly fitting, overall tolerating fairly well. Lungs are clear/diminished bilaterally. She is on 2 L nasal cannula which is supplemental oxygen baseline for her. Heart rate is regular. Blood pressure stable. No further episodes of hypotension. Abdomen is soft, bowel sounds are present. Had bowel movements on 07/22/2022. She is tolerating oral intake well Posterior cervical incision is flat and covered with dry sterile dressing. Will be evaluated today while in bed when Shalini brace is off Weight Dosing Weight: 98.7 kg (07/13/22) Dosing Weight: 98.7 kg (07/11/22) Medications Medications (18) Active Scheduled: (11) atorvastatin 10 mg tablet 10 mg 1 tab(s), Oral, qHS ceFAZolin 1 gram(s) 10 mL, Topical (INT), PREOP pharm docusate-senna (Senokot S) 50 mg-8.6 mg Tablet 1 tab(s), Oral, BID gabapentin 300 mg Capsule 300 mg 1 cap(s), Oral, TID heparin 5,000 units/mL (1 mL) vial 5,000 unit(s) 1 mL, Subcutaneous, q8h insulin lispro 100 units/mL Soln (3 mL) Give 0-10 units/dose, Subcutaneous, TIDAC losartan 50 mg tablet 50 mg 1 tab(s), Oral, qDay metoprolol succinate 50 mg ER tablet 50 mg 1 tab(s), Oral, qDayM nystatin powder 100,000 units/g 15 Gram(s) 1 marcy, Topical, AsDirected pantoprazole 40 mg EC tablet 40 mg 1 tab(s), Oral, qDayAC polyethylene glycol 3350 - UD packet 17 gram(s) 15 mL, Oral, qDay Continuous: (0) PRN: (7) acetaminophen 325 mg Tablet 650 mg 2 tab(s), Oral, q6hr docusate sodium 100 mg Capsule 100 mg 1 cap(s), Oral, BID melatonin 5 mg tablet 5 mg 1 tab(s), Oral, qHS ondansetron 2 mg/ 1 mL 2 mL INJ 4 mg 2 mL, IV Push, q4h oxycodone 5 mg tablet (immediate release) 5 mg 1 tab(s), Oral, q4h polyethylene glycol 3350 - UD packet 17 gram(s) 15 mL, Oral, qDay prochlorperazine 10 mg/2 mL vial 5 mg 1 mL, IV Push, q4h Imaging Results and Diagnostics CT Spine Cervical w/o Contrast Result Date: July 14, 2022 Verified By: EDER CLARK MD CLINICAL STATEMENT: IMPRESSION: Instrumented posterior fusion of C2 through T2 and laminectomy of C2 throughC6. Bilateral pedicle fracture of C6 with extension distraction fracture C6-[id number] no change in alignment. XR Spine Cervical 1 View Result Date: July 12, 2022 Verified By: EDER CLARK MD CLINICAL STATEMENT: IMPRESSION: Nondiagnostic assessment of alignment of C6-C7 where known subluxation wasdemonstrated on prior CT scan. XR Spine Thoracic 1 View Result Date: July 11, 2022 Verified By: YOAV PALOMINO DO CLINICAL STATEMENT: IMPRESSION: Nearly nondiagnostic exam secondary to body habitus. No obvious compressionfracture or spondylolisthesis in the visualized spine. ATTENDING ADDENDUM: This exam is nondiagnostic to excludethoracic fracture or traumaticmalalignment, especially in the setting of known cervical spine fractu re.Exam is limited secondary to portable cross-table lateral technique. XR Spine Cervical 1 View Result Date: July 11, 2022 Verified By: YOAV PALOMINO DO CLINICAL STATEMENT: IMPRESSION: Limited exam secondary to inability to perform swimmer's view. Anterior discspace widening at C6-7 is again noted, however C7 is not well demonstratedand subluxation cannot be adequately assessed. I have reviewed the resident's preliminary report and agree with findings andimpression. MRI Spine Cervical w/o Contrast Result Date: July 11, 2022 Verified By: ROBERTA ROSARIO MD CLINICAL STATEMENT: IMPRESSION: Displaced and distracted C6-C7 fracture. There is stenosis at this level,but there is no definite cord compression and there is no abnormal signal inthe cord at this or any other level. 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 Milder degenerative changes at the remaining levels. Mild stenosis at C4-C5and C5-C6. Signal changes in the ishmael, likely small vessel ischemic disease. Assessment/Plan 1. S/P fall, resulting in C6-7 distraction injury with bilateral pedicle fractures 2. S/P C2-C7 decompressive laminectomy, C2-T2 posterior bone screw/merari fixation and fusion 3. DM2 (diabetes mellitus, type 2) 4. Hypertension 5. Chronic respiratory failure with hypoxia, on home oxygen therapy 2L [place] 6. E-coli UTI 7. Acute DVT (deep venous thrombosis) right soleal vein. POD #10, s/p C2-C7 posterior cervical decompressive laminectomy and C2-T2 instrumented fusion on 07/13/2022 Shalini brace on at all times Follow-up appointment arranged with Dr. Matthews in 2 weeks with cervical spine x- ray prior to the office visit Reevaluated by hospitalist physician yesterday post episode of hypotension transient from medication administration. Appreciate care provided. Discharge today Digitally Signed by NITA MADERA APRN-TRAFFIC OR SYSTEM DISPATCHER on 07/23/2022 06:18 AM [facility] [id number] Note Chief Complaint hypotension Subjective Patient was hypotensive this morning. At the time of exam she is normotensive. She has no acute somatic concerns. Pain is controlled. No CP or palpitation. No dizziness or lightheadedness. No SOB. Feels a bit weak. Physical Examination General: No apparent distress. Alert and appropriate. HEENT: EOMI Neck: Supple. Cardiovascular: S1 S2 normal. No extra-audible heart tones. Respiratory: Diminished but clear. No wheeze. Abdominal: Soft, benign. Extremities: No edema. Adequate peripheral circulation. Neurological: Grossly intact without focal deficit. Objective Vitals and Measurements T: 36.7 C (Oral) TMIN: 36.6 C (Oral) TMAX: 37.1 C (Oral) HR: 93(Monitored) RR: 18 BP: 123/57 SpO2: 99% Intake and Output 7AM Yesterday to 7AM Today Intake and Output (Last 24 hours) Intake Supplement Intake 480.00 Output Urinary Catheter Output: 1250.00 Stool Count 4.00 Diaper Count 2.00 Total Summary Total Intake 480.00 Total Output 1250.00 Fluid Balance -770.00 Physical Exam Weight Dosing Weight: 98.7 kg (07/13/22) Dosing Weight: 98.7 kg (07/11/22) Medications Medications (17) Active Scheduled: (11) atorvastatin 10 mg tablet 10 mg 1 tab(s), Oral, qHS ceFAZolin 1 gram(s) 10 mL, Topical (INT), PREOP pharm docusate-senna (Senokot S) 50 mg-8.6 mg Tablet 1 tab(s), Oral, BID gabapentin 300 mg Capsule 300 mg 1 cap(s), Oral, TID heparin 5,000 units/mL (1 mL) vial 5,000 unit(s) 1 mL, Subcutaneous, q8h insulin lispro 100 units/mL Soln (3 mL) Give 0-10 units/dose, Subcutaneous, TIDAC losartan 50 mg tablet 50 mg 1 tab(s), Oral, qDay metoprolol succinate 50 mg ER tablet 50 mg 1 tab(s), Oral, qDayM nystatin powder 100,000 units/g 15 Gram(s) 1 marcy, Topical, AsDirected pantoprazole 40 mg EC tablet 40 mg 1 tab(s), Oral, qDayAC polyethylene glycol 3350 - UD packet 17 gram(s) 15 mL, Oral, qDay Continuous: (0) PRN: (6) acetaminophen 325 mg Tablet 650 mg 2 tab(s), Oral, q6hr docusate sodium 100 mg Capsule 100 mg 1 cap(s), Oral, BID ondansetron 2 mg/ 1 mL 2 mL INJ 4 mg 2 mL, IV Push, q4h oxycodone 5 mg tablet (immediate release) 5 mg 1 tab(s), Oral, q4h polyethylene glycol 3350 - UD packet 17 gram(s) 15 mL, Oral, qDay prochlorperazine 10 mg/2 mL vial 5 mg 1 mL, IV Push, q4h Lab Results No 36 Hour Lab Data EKG No qualifying data available. Assessment/Plan 1. S/P fall, resulting in C6-7 distraction injury with bilateral pedicle fractures 2. S/P C2-C7 decompressive laminectomy, C2-T2 posterior bone screw/merari fixation and fusion 3. DM2 (diabetes mellitus, type 2) 4. Hypertension 5. Chronic respiratory failure with hypoxia, on home oxygen therapy 2L NC 6. E-coli UTI 7. Acute DVT (deep venous thrombosis) right soleal vein. Hypotension this morning secondary to medication administration. Blood pressure has normalized by the time of exam. Patient alert and asymptomatic at present. Discontinue hydromorphone and use oxycodone to prevent further hypotension. Repeat Doppler US in 1 and 4 weeks to assess stability of new below knee DVT. Remains stable for DC per primary team. Orders: oxyCODONE, Start: 07/22/22 12:00:00 EDT, Dose = 5 mg, = 1 tab(s), Oral, q4h, PRN, Pain, scale 4-10,0, 07/22/22 11:02:00 EDT Digitally Signed by FABIANO RUBIO MD FACP on 07/22/2022 08:16 PM [id number] Neurological surgery Progress note Date of Service Addendum by NITA MADERA MACHINE MAINTENANCE REPAIRER-TRAFFIC OR SYSTEM DISPATCHER on July 22, 2022 06:06:28 EDT (Verified) 07/22/2022 Patient cleared for discharge, however still awaiting precertification. No acute events overnight. Patient overall doing well neurologically. Vital signs have remained stable. Internal medicine team has been following, signed off yesterday and cleared for discharge. She dislikes the Shalini brace, but has been compliant with use. Does have complaints of muscle spasms, tizanidine has been ordered [facility] Digitally Signed by NITA MADERA on 07/22/2022 06:07 AM Addendum by NITA MADERA on July 22, 2022 09:25:50 EDT (Verified) Patient received muscle relaxer today, and noted to have hypotension now. 500ns bolus ordered [facility] Digitally Signed by NITA MADERA on 07/22/2022 09:30 AM Addendum by NITA MADERA on July 22, 2022 09:54:13 EDT (Verified) Patient was given a total of 1 L normal saline and blood pressure improved, now blood pressure 104/52. Rapid response nurse plans to contact hospitalist team for further assistance with blood pressure. This transient hypotension is likely due to medication administration. Tizanidine has been discontinued. I requested tizanidine, Flexeril, and gabapentin to be placed on patient's allergy list as these medications have caused hypotension and lethargy this hospitalization. [facility] Digitally Signed by NITA MADERA on 07/22/2022 09:55 AM [1] [1] Discharge Summary; ARYAN VAZ 07/21/2022 07:15 EDT Digitally Signed by NITA MADERA on 07/22/2022 09:56 AM [id number] Discharge summary Date of Service 07/21/2022 Discharge Diagnosis 1. S/P fall, resulting in C6-7 distraction injury with bilateral pedicle fractures ([id number] - [facility]) 2. S/P C2-C7 decompressive laminectomy, C2-T2 posterior bone screw/merari fixation and fusion ([id number] - [facility]) 3. DM2 (diabetes mellitus, type 2) (E11.9 - ICD-10-CM) 4. Hypertension (I10 - ICD-10-CM) 5. Chronic respiratory failure with hypoxia, on home oxygen therapy 2L NC (J96.11 - ICD-10-CM) 6. E-coli UTI (N39.0 - ICD-10-CM) 7. Acute DVT (deep venous thrombosis) right soleal vein. (I82.409 - ICD-10-CM) Dislocation of C6/C7 cervical vertebrae, initial encounter (S13.171A - ICD-10-CM) Unspecified cord compression (G95.20 - ICD-10-CM) Other specified diseases of spinal cord (G95.89 - ICD-10-CM) Unspecified injury of neck, initial encounter (S19.9XXA - ICD-10-CM) Spinal stenosis, site unspecified (M48.00 - ICD-10-CM) Unspecified displaced fracture of sixth cervical vertebra, initial encounter for closed fracture (S12.500A - ICD-10-CM) Exposure to other specified factors, initial encounter (X58.XXXA - ICD-10-CM) Hospital Course This is a 71-year-old female, who sustained an unstable C6-7 fracture/dislocation status post falling over her walker and landing on the left side of her body and face. She was evaluated in the [facility] emergency department, where she was found to have a distraction extension fracture at C6/7 with bilateral pedicle fractures. She was taken to surgery on 07/13/2022 for a C2-C7 decompressive laminectomy and C2-T2 posterior bone screw/merari fixation and fusion. She did have some facial swelling from her fall, and therefore remained intubated post-op. She was extubated on post-op day #2 (07/15/2022). Please see Dr. Michaud's operative note for further details regarding the surgical procedure. On exam, she is awake and alert. Sitting up in chair. She is able to move all 4 extremities strongly. She complains of some numbness only in her left thumb. Dorsiflexion and plantar flexion are strong. Hand grasps are strong. Posterior cervical dressing is dry and intact. She remains in a Shalini brace. She is voiding without difficulty. She has been eating and drinking well. PT/OT eval-recommend inpatient rehab. Dopplar 07/18/2022-DVT right soleal vein. Currently on sq heparin for DVT prophylaxis. Hospitalist evaluated yesterday. No anticoagulation at this time since below the knee. Plan repeat dopplarin 1 week. Patient is overall doing well. She is ready to be discharged to [facility]. Her discharge instructions and restrictions been provided to [facility]. Her follow-up appointment has been arranged. Allergies NKA Procedures S/P C2 to C7 decompressive laminectomy, C2 to T2 posterior bone screw/merari fixation (Infinity; [employer]) with autograft/allograft (Infuse; [employer]) fusion with navigation and intraoperative SSEP, MEP and EMG monitoring- Consults Consult to Physician - Ordered -- 07/11/22 14:17:00 EDT, HOSPITALISTVAISHALI (For Consultation Assignment Only NO other Orders), Routine, surgical clearance, Please evaluate preop for clearance. Has distracted fracture c6-7 Consult to Physician - Ordered -- 07/11/22 17:23:00 EDT, SIMON SHIELDS MD, Routine, Other, Please follow medically while in SICU. Clearance for surgical intervention, C2-T3 fusion, acdf c6-7 Consult to Physician - Ordered -- 07/20/22 10:26:00 EDT, VAISHALI PIKE (For Consultation Assignment Only NO other Orders), Routine, Med management and right LE DVT- ok for anticoag if need for tx of DVT. Imaging Results and Diagnostics XR Chest 1 View Result Date: July 15, 2022 Verified By: EDER CLARK MD CLINICAL STATEMENT: IMPRESSION: No significant interval change, with persistent bibasilarinfiltrates/atelectasis and small left pleural effusion. I have personally reviewed the images of this examination, and agree withtheresident's findings and interpretation. XR Enteric Tube Placement Result Date: July 14, 2022 Verified By: ALDO DEVINE MD CLINICAL STATEMENT: IMPRESSION: Appropriate positioning of the OG tube. XR Chest 1 View Result Date: July 14, 2022 Verified By: EDER CLARK MD CLINICAL STATEMENT: IMPRESSION: Grossly unchanged bibasilar infiltrates/atelectasis and small left pleuraleffusion. I have personally reviewed the images of this examination, and agree with theresident's findings and interpretation. CT Spine Cervical w/o Contrast Result Date: July 14, 2022 Verified By: EDER CLARK MD CLINICAL STATEMENT: IMPRESSION: Instrumented posterior fusion of C2 through T2 and laminectomy of C2 throughC6. Bilateral pedicle fracture of C6 with extension distraction fracture C6-[id number] no change in alignment. XR Chest 1 View Result Date: July 13, 2022 Verified By: JARETH MAK MD CLINICAL STATEMENT: IMPRESSION: 1. Endotracheal tube terminating approximately 5.3 cm above the judith. 2. Interval placement surgical hardware throughout the cervical spine 3. Unchanged bibasilar reticular opacities favoring atelectasis withadditional airspace disease felt to be less likely however not excluded. 4. Unchanged small left pleural effusion. I have personally reviewed the images of this examination and agree with theresident's findings and interpretation. XR Spine Cervical Ap/Lat Result Date: July 13, 2022 Verified By: ROMINA STUBBS, RICHAR Mohan CLINICAL STATEMENT: IMPRESSION: Severely limited exam. A surgical sponge is not clearly identified. XR Fluoro 2 Hrs Tech Time Result Date: July 13, 2022 Verified By: EDER CLARK MD CLINICAL STATEMENT: IMPRESSION: Intraprocedural fluoroscopic spot images as above. See separate procedurereport for more information. XR Chest 1 View Result Date: July 12, 2022 Verified By: GRETCHEN TAYLOR MD CLINICAL STATEMENT: IMPRESSION: No significant change in the bibasilar atelectasis or other airspace diseaseand small left pleural effusion. XR Spine Cervical 1 View Result Date: July 12, 2022 Verified By: EDER CLARK MD CLINICAL STATEMENT: IMPRESSION: Nondiagnostic assessment of alignment of C6-C7 where known subluxation wasdemonstrated on prior CT scan. XR Spine Thoracic 1 View Result Date: July 11, 2022 Verified By: YOAV PALOMINO DO CLINICAL STATEMENT: IMPRESSION: Nearly nondiagnostic exam secondary to body habitus. No obvious compressionfracture or spondylolisthesis in the visualized spine. ATTENDING ADDENDUM: This exam is nondiagnostic to excludethoracic fracture or traumaticmalalignment, especially in the setting of known cervical spine fractu re.Exam is limited secondary to portable cross-table lateral technique. XR Spine Cervical 1 View Result Date: July 11, 2022 Verified By: YOAV PALOMINO DO CLINICAL STATEMENT: IMPRESSION: Limited exam secondary to inability to perform swimmer's view. Anterior discspace widening at C6-7 is again noted, however C7 is not well demonstratedand subluxation cannot be adequately assessed. I have reviewed the resident's preliminary report and agree with findings andimpression. MRI Spine Cervical w/o Contrast Result Date: July 11, 2022 Verified By: ROBERTA ROSARIO MD CLINICAL STATEMENT: IMPRESSION: Displaced and distracted C6-C7 fracture. There is stenosis at this level,but there is no definite cord compression and there is no abnormal signal inthe cord at this or any other level. 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 Milder degenerative changes at the remaining levels. Mild stenosis at C4-C5and C5-C6. Signal changes in the ishmael, likely small vessel ischemic disease. Objective Vitals and Measurements T: 36.7 C (Oral) TMIN: 36.7 C (Oral) TMAX: 36.8 C (Oral) HR: 99(Monitored) RR: 18 BP: 114/51 SpO2: 95% Weight Dosing Weight: 98.7 kg (07/13/22) Dosing Weight: 98.7 kg (07/11/22) Code Status Code Status - Ordered -- 07/11/22 17:23:00 EDT, Full Code, Constant Order Admission Date 07/11/2022 Discharge Date 07/21/2022 Patient Instructions Follow up appointment will be with Dr. Matthews's Nurse Practitioner, Renetta Rojo CNP. No aspirin, aspirin products, NSAIDS until cleared by Neurosurgery. Shalini brace is to be worn at all times. Keep incision dry until completely healed- 2 weeks post-op (07/28/2022). May shower, but cover incision with plastic wrap to ensure it remains dry. No lifting more than 10 lbs. Change dressing daily until healed- about 2 weeks postop. Medications New Prescription docusate (Colace 100 mg oral capsule)1 cap by mouth two (2) times a day as needed Constipation. docusate-senna (docusate-senna 50 mg-8.6 mg oral tablet)1 tab(s) by mouth two (2) times a day. heparin (heparin 5000 units/mL injection)1 Milliliter Subcutaneous every 8 hours. insulin lispro (HumaLOG) (HumaLOG 100 units/mL subcutaneous solution)Give 0-10 units/dose Subcutaneous three (3) times a day before meals. nystatin topical (nystatin 100,000 units/g topical powder)1 application Topical As Directed. oxyCODONE (oxyCODONE 5 mg oral tablet ( IMMEDIATE release ))1 tab(s) by mouth every 6 hours as needed Pain, scale 4-10. pantoprazole (pantoprazole 40 mg oral enteric coated tablet)1 tab(s) by mouth once a day before a meal. polyethylene glycol 3350by mouth once a day. polyethylene glycol 3350by mouth once a day as needed Constipation. Unchanged estradiol topical (estradiol 0.1 mg/g vaginal cream)1 Applicatorful Vaginal twice a week for 30 Days. Refills: 11. gabapentin (gabapentin 300 mg oral capsule)1 cap by mouth three (3) times a day. losartan (losartan 100 mg oral tablet)1 tab(s) by mouth once a day. Refills: 3. metoprolol (metoprolol succinate 50 mg oral TABLET extended release)1 tab(s) by mouth once a day. Refills: 3. simvastatin (simvastatin 10 mg oral tablet)1 tab(s) by mouth daily at bedtime. Refills: 0. Discontinued aspirin (aspirin 81 mg oral delayed release tablet)1 tab(s) by mouth every day. diclofenac (diclofenac potassium 50 mg oral tablet)1 tab(s) by mouth once a day. Refills: 3. dicyclomine (dicyclomine 20 mg oral tablet)1 tab(s) by mouth two (2) times a day for 90 Days. Refills: 3. furosemide (Lasix 20 mg oral tablet)1 tab(s) by mouth two (2) times a day. Refills: 3. glimepiride (glimepiride 4 mg oral tablet)1 tab(s) by mouth once a day. Refills: 3. mirabegron (Myrbetriq 25 mg oral tablet, extended release)1 tab(s) by mouth once a day. Refills: 3. nitroGLYcerin (nitroglycerin 0.4 mg sublingual tablet)1 tab(s) under the tongue every 5 minutes. omeprazole (omeprazole 20 mg oral delayed release capsule)1 cap by mouth once a day before a meal as needed abdominal discomfort. Refills: 3. oxybutynin (oxybutynin 5 mg oral tablet)1 tab(s) by mouth once a day. Refills: 3. Follow Up Follow Up with TRACE MATTHEWS MD, Neurosurgery When 07/27/2022 09:30 AM EDT Where: [address] [facility] [address] [place] [address]- [phone] Follow Up Appointments See above Follow Up Labs/Studies Discharge Labs No Follow-up Labs Discharge Studies Discharge Outpatient to Other Therapy/Tests - Ordered -- Your therapy ordered is: VL Venous US doppler RLE, Relevant Diagnosis: Acute DVT (deep venous th, Reason for therapy: Follow up, 1 week (07/25/22), 07/20/22 12:33:00 EDT Discharge Outpatient to Other Therapy/Tests - Ordered -- Your therapy ordered is: VL Venous US doppler RLE, Relevant Diagnosis: Acute DVT (deep venous th, Reason for therapy: Follow up, 07/20/22 12:33:00 EDT Discharge Diet May resume home diet. Discharge Activity See above Condition on Discharge Stable Readmission Risk/Palliative Score No qualifying data available. Discharge Disposition [facility] Information Provided To Patient and [facility] Time Spent 15 min Digitally Signed by ARYAN VAZ on 07/21/2022 08:46 AM Digitally Signed by TRACE MATTHEWS MD on 07/21/2022 11:25 AM [id number] Discharge summary Date of Service 07/21/2022 Discharge Diagnosis 1. S/P fall, resulting in C6-7 distraction injury with bilateral pedicle fractures ([id number] - PNED) 2. S/P C2-C7 decompressive laminectomy, C2-T2 posterior bone screw/merari fixation and fusion ([id number] - PNED) 3. DM2 (diabetes mellitus, type 2) (E11.9 - ICD-10-CM) 4. Hypertension (I10 - ICD-10-CM) 5. Chronic respiratory failure with hypoxia, on home oxygen therapy 2L NC (J96.11 - ICD-10-CM) 6. E-coli UTI (N39.0 - ICD-10-CM) 7. Acute DVT (deep venous thrombosis) right soleal vein. (I82.409 - ICD-10-CM) Dislocation of C6/C7 cervical vertebrae, initial encounter (S13.171A - ICD-10-CM) Unspecified cord compression (G95.20 - ICD-10-CM) Other specified diseases of spinal cord (G95.89 - ICD-10-CM) Unspecified injury of neck, initial encounter (S19.9XXA - ICD-10-CM) Spinal stenosis, site unspecified (M48.00 - ICD-10-CM) Unspecified displaced fracture of sixth cervical vertebra, initial encounter for closed fracture (S12.500A - ICD-10-CM) Exposure to other specified factors, initial encounter (X58.XXXA - ICD-10-CM) Hospital Course This is a 71-year-old female, who sustained an unstable C6-7 fracture/dislocation status post falling over her walker and landing on the left side of her body and face. She was evaluated in the [facility] emergency department, where she was found to have a distraction extension fracture at C6/7 with bilateral pedicle fractures. She was taken to surgery on 07/13/2022 for a C2-C7 decompressive laminectomy and C2-T2 posterior bone screw/merari fixation and fusion. She did have some facial swelling from her fall, and therefore remained intubated post-op. She was extubated on post-op day #2 (07/15/2022). Please see Dr. Michaud's operative note for further details regarding the surgical procedure. On exam, she is awake and alert. Sitting up in chair. She is able to move all 4 extremities strongly. She complains of some numbness only in her left thumb. Dorsiflexion and plantar flexion are strong. Hand grasps are strong. Posterior cervical dressing is dry and intact. She remains in a Shalini brace. She is voiding without difficulty. She has been eating and drinking well. PT/OT eval-recommend inpatient rehab. Dopplar 07/18/2022-DVT right soleal vein. Currently on sq heparin for DVT prophylaxis. Hospitalist evaluated yesterday. No anticoagulation at this time since below the knee. Plan repeat dopplarin 1 week. Patient is overall doing well. She is ready to be discharged to [facility]. Her discharge instructions and restrictions been provided to [facility]. Her follow-up appointment has been arranged. Allergies NKA Procedures S/P C2 to C7 decompressive laminectomy, C2 to T2 posterior bone screw/merari fixation (Infinity; Medtr[employer]) with autograft/allograft (Infuse; [employer]) fusion with navigation and intraoperative SSEP, MEP and EMG monitoring- Consults Consult to Physician - Ordered -- 07/11/22 14:17:00 EDT, HOSPITALISTVAISHALI (For Consultation Assignment Only NO other Orders), Routine, surgical clearance, Please evaluate preop for clearance. Has distracted fracture c6-7 Consult to Physician - Ordered -- 07/11/22 17:23:00 EDT, SIMON SHIELDS MD, Routine, Other, Please follow medically while in SICU. Clearance for surgical intervention, C2-T3 fusion, acdf c6-7 Consult to Physician - Ordered -- 07/20/22 10:26:00 EDT, VAISHALI PIKE (For Consultation Assignment Only NO other Orders), Routine, Med management and right LE DVT- ok for anticoag if need for tx of DVT. Imaging Results and Diagnostics XR Chest 1 View Result Date: July 15, 2022 Verified By: EDER CLARK MD CLINICAL STATEMENT: IMPRESSION: No significant interval change, with persistent bibasilarinfiltrates/atelectasis and small left pleural effusion. I have personally reviewed the images of this examination, and agree withtheresident's findings and interpretation. XR Enteric Tube Placement Result Date: July 14, 2022 Verified By: ALDO DEVINE MD CLINICAL STATEMENT: IMPRESSION: Appropriate positioning of the OG tube. XR Chest 1 View Result Date: July 14, 2022 Verified By: EDER CLARK MD CLINICAL STATEMENT: IMPRESSION: Grossly unchanged bibasilar infiltrates/atelectasis and small left pleuraleffusion. I have personally reviewed the images of this examination, and agree with theresident's findings and interpretation. CT Spine Cervical w/o Contrast Result Date: July 14, 2022 Verified By: EDER CLARK MD CLINICAL STATEMENT: IMPRESSION: Instrumented posterior fusion of C2 through T2 and laminectomy of C2 throughC6. Bilateral pedicle fracture of C6 with extension distraction fracture C6-S6evwij no change in alignment. XR Chest 1 View Result Date: July 13, 2022 Verified By: JARETH MAK MD CLINICAL STATEMENT: IMPRESSION: 1. Endotracheal tube terminating approximately 5.3 cm above the judith. 2. Interval placement surgical hardware throughout the cervical spine 3. Unchanged bibasilar reticular opacities favoring atelectasis withadditional airspace disease felt to be less likely however not excluded. 4. Unchanged small left pleural effusion. I have personally reviewed the images of this examination and agree with theresident's findings and interpretation. XR Spine Cervical Ap/Lat Result Date: July 13, 2022 Verified By: RICHAR HASSAN MD CLINICAL STATEMENT: IMPRESSION: Severely limited exam. A surgical sponge is not clearly identified. XR Fluoro 2 Hrs Tech Time Result Date: July 13, 2022 Verified By: EDER CLARK MD CLINICAL STATEMENT: IMPRESSION: Intraprocedural fluoroscopic spot images as above. See separate procedurereport for more information. XR Chest 1 View Result Date: July 12, 2022 Verified By: GRETCHEN TAYLOR MD CLINICAL STATEMENT: IMPRESSION: No significant change in the bibasilar atelectasis or other airspace diseaseand small left pleural effusion. XR Spine Cervical 1 View Result Date: July 12, 2022 Verified By: EDER CLARK MD CLINICAL STATEMENT: IMPRESSION: Nondiagnostic assessment of alignment of C6-C7 where known subluxation wasdemonstrated on prior CT scan. XR Spine Thoracic 1 View Result Date: July 11, 2022 Verified By: YOAV PALOMINO DO CLINICAL STATEMENT: IMPRESSION: Nearly nondiagnostic exam secondary to body habitus. No obvious compressionfracture or spondylolisthesis in the visualized spine. ATTENDING ADDENDUM: This exam is nondiagnostic to excludethoracic fracture or traumaticmalalignment, especially in the setting of known cervical spine fractu re.Exam is limited secondary to portable cross-table lateral technique. XR Spine Cervical 1 View Result Date: July 11, 2022 Verified By: YOAV PALOMINO DO CLINICAL STATEMENT: IMPRESSION: Limited exam secondary to inability to perform swimmer's view. Anterior discspace widening at C6-7 is again noted, however C7 is not well demonstratedand subluxation cannot be adequately assessed. I have reviewed the resident's preliminary report and agree with findings andimpression. MRI Spine Cervical w/o Contrast Result Date: July 11, 2022 Verified By: ROBERTA ROSARIO MD CLINICAL STATEMENT: IMPRESSION: Displaced and distracted C6-C7 fracture. There is stenosis at this level,but there is no definite cord compression and there is no abnormal signal inthe cord at this or any other level. 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 Milder degenerative changes at the remaining levels. Mild stenosis at C4-C5and C5-C6. Signal changes in the ishmael, likely small vessel ischemic disease. Objective Vitals and Measurements T: 36.7 C (Oral) TMIN: 36.7 C (Oral) TMAX: 36.8 C (Oral) HR: 99(Monitored) RR: 18 BP: 114/51 SpO2: 95% Weight Dosing Weight: 98.7 kg (07/13/22) Dosing Weight: 98.7 kg (07/11/22) Code Status Code Status - Ordered -- 07/11/22 17:23:00 EDT, Full Code, Constant Order Admission Date 07/11/2022 Discharge Date 07/21/2022 Patient Instructions Follow up appointment will be with Dr. Matthews's Nurse Practitioner, Renetat Rojo CNP. No aspirin, aspirin products, NSAIDS until cleared by Neurosurgery. Shalini brace is to be worn at all times. Keep incision dry until completely healed- 2 weeks post-op (07/28/2022). May shower, but cover incision with plastic wrap to ensure it remains dry. No lifting more than 10 lbs. Change dressing daily until healed- about 2 weeks postop. Medications New Prescription docusate (Colace 100 mg oral capsule)1 cap by mouth two (2) times a day as needed Constipation. docusate-senna (docusate-senna 50 mg-8.6 mg oral tablet)1 tab(s) by mouth two (2) times a day. heparin (heparin 5000 units/mL injection)1 Milliliter Subcutaneous every 8 hours. insulin lispro (HumaLOG) (HumaLOG 100 units/mL subcutaneous solution)Give 0-10 units/dose Subcutaneous three (3) times a day before meals. nystatin topical (nystatin 100,000 units/g topical powder)1 application Topical As Directed. oxyCODONE (oxyCODONE 5 mg oral tablet ( IMMEDIATE release ))1 tab(s) by mouth every 6 hours as needed Pain, scale 4-10. pantoprazole (pantoprazole 40 mg oral enteric coated tablet)1 tab(s) by mouth once a day before a meal. polyethylene glycol 3350by mouth once a day. polyethylene glycol 3350by mouth once a day as needed Constipation. Unchanged estradiol topical (estradiol 0.1 mg/g vaginal cream)1 Applicatorful Vaginal twice a week for 30 Days. Refills: 11. gabapentin (gabapentin 300 mg oral capsule)1 cap by mouth three (3) times a day. losartan (losartan 100 mg oral tablet)1 tab(s) by mouth once a day. Refills: 3. metoprolol (metoprolol succinate 50 mg oral TABLET extended release)1 tab(s) by mouth once a day. Refills: 3. simvastatin (simvastatin 10 mg oral tablet)1 tab(s) by mouth daily at bedtime. Refills: 0. Discontinued aspirin (aspirin 81 mg oral delayed release tablet)1 tab(s) by mouth every day. diclofenac (diclofenac potassium 50 mg oral tablet)1 tab(s) by mouth once a day. Refills: 3. dicyclomine (dicyclomine 20 mg oral tablet)1 tab(s) by mouth two (2) times a day for 90 Days. Refills: 3. furosemide (Lasix 20 mg oral tablet)1 tab(s) by mouth two (2) times a day. Refills: 3. glimepiride (glimepiride 4 mg oral tablet)1 tab(s) by mouth once a day. Refills: 3. mirabegron (Myrbetriq 25 mg oral tablet, extended release)1 tab(s) by mouth once a day. Refills: 3. nitroGLYcerin (nitroglycerin 0.4 mg sublingual tablet)1 tab(s) under the tongue every 5 minutes. omeprazole (omeprazole 20 mg oral delayed release capsule)1 cap by mouth once a day before a meal as needed abdominal discomfort. Refills: 3. oxybutynin (oxybutynin 5 mg oral tablet)1 tab(s) by mouth once a day. Refills: 3. Follow Up Follow Up with BYRON STUBBS, TRACE Sprague, Neurosurgery When 07/27/2022 09:30 AM EDT Where: [address] [place] [address]- [phone] Follow Up Appointments See above Follow Up Labs/Studies Discharge Labs No Follow-up Labs Discharge Studies Discharge Outpatient to Other Therapy/Tests - Ordered -- Your therapy ordered is: VL Venous US doppler RLE, Relevant Diagnosis: Acute DVT (deep venous th, Reason for therapy: Follow up, 1 week (07/25/22), 07/20/22 12:33:00 EDT Discharge Outpatient to Other Therapy/Tests - Ordered -- Your therapy ordered is: VL Venous US doppler RLE, Relevant Diagnosis: Acute DVT (deep venous th, Reason for therapy: Follow up, 07/20/22 12:33:00 EDT Discharge Diet May resume home diet. Discharge Activity See above Condition on Discharge Stable Readmission Risk/Palliative Score No qualifying data available. Discharge Disposition [facility] Information Provided To Patient and [facility] Time Spent 15 min Digitally Signed by ARYAN VAZ on 07/21/2022 08:46 AM Digitally Signed by TRACE MATTHEWS MD on 07/21/2022 11:25 AM [id number] Discharge summary Date of Service 07/21/2022 Discharge Diagnosis 1. S/P fall, resulting in C6-7 distraction injury with bilateral pedicle fractures ([id number] - PNED) 2. S/P C2-C7 decompressive laminectomy, C2-T2 posterior bone screw/merari fixation and fusion ([id number] - PNED) 3. DM2 (diabetes mellitus, type 2) (E11.9 - ICD-10-CM) 4. Hypertension (I10 - ICD-10-CM) 5. Chronic respiratory failure with hypoxia, on home oxygen therapy 2L NC (J96.11 - ICD-10-CM) 6. E-coli UTI (N39.0 - ICD-10-CM) 7. Acute DVT (deep venous thrombosis) right soleal vein. (I82.409 - ICD-10-CM) Dislocation of C6/C7 cervical vertebrae, initial encounter (S13.171A - ICD-10-CM) Unspecified cord compression (G95.20 - ICD-10-CM) Other specified diseases of spinal cord (G95.89 - ICD-10-CM) Unspecified injury of neck, initial encounter (S19.9XXA - ICD-10-CM) Spinal stenosis, site unspecified (M48.00 - ICD-10-CM) Unspecified displaced fracture of sixth cervical vertebra, initial encounter for closed fracture (S12.500A - ICD-10-CM) Exposure to other specified factors, initial encounter (X58.XXXA - ICD-10-CM) Hospital Course This is a 71-year-old female, who sustained an unstable C6-7 fracture/dislocation status post falling over her walker and landing on the left side of her body and face. She was evaluated in the [facility] emergency department, where she was found to have a distraction extension fracture at C6/7 with bilateral pedicle fractures. She was taken to surgery on 07/13/2022 for a C2-C7 decompressive laminectomy and C2-T2 posterior bone screw/merari fixation and fusion. She did have some facial swelling from her fall, and therefore remained intubated post-op. She was extubated on post-op day #2 (07/15/2022). Please see Dr. Michaud's operative note for further details regarding the surgical procedure. On exam, she is awake and alert. Sitting up in chair. She is able to move all 4 extremities strongly. She complains of some numbness only in her left thumb. Dorsiflexion and plantar flexion are strong. Hand grasps are strong. Posterior cervical dressing is dry and intact. She remains in a Shalini brace. She is voiding without difficulty. She has been eating and drinking well. PT/OT eval-recommend inpatient rehab. Dopplar 07/18/2022-DVT right soleal vein. Currently on sq heparin for DVT prophylaxis. Hospitalist evaluated yesterday. No anticoagulation at this time since below the knee. Plan repeat dopplarin 1 week. Patient is overall doing well. She is ready to be discharged to [facility]. Her discharge instructions and restrictions been provided to [facility]. Her follow-up appointment has been arranged. Allergies NKA Procedures S/P C2 to C7 decompressive laminectomy, C2 to T2 posterior bone screw/merari fixation (Infinity; [employer]) with autograft/allograft (Infuse; [employer]) fusion with navigation and intraoperative SSEP, MEP and EMG monitoring- Consults Consult to Physician - Ordered -- 07/11/22 14:17:00 EDT, HOSPITALISTVAISHALI (For Consultation Assignment Only NO other Orders), Routine, surgical clearance, Please evaluate preop for clearance. Has distracted fracture c6-7 Consult to Physician - Ordered -- 07/11/22 17:23:00 EDT, SIMON SHIELDS MD, Routine, Other, Please follow medically while in SICU. Clearance for surgical intervention, C2-T3 fusion, acdf c6-7 Consult to Physician - Ordered -- 07/20/22 10:26:00 EDT, HOSPITALVAISHALI BANSAL (For Consultation Assignment Only NO other Orders), Routine, Med management and right LE DVT- ok for anticoag if need for tx of DVT. Imaging Results and Diagnostics XR Chest 1 View Result Date: July 15, 2022 Verified By: EDER CLARK MD CLINICAL STATEMENT: IMPRESSION: No significant interval change, with persistent bibasilarinfiltrates/atelectasis and small left pleural effusion. I have personally reviewed the images of this examination, and agree withtheresident's findings and interpretation. XR Enteric Tube Placement Result Date: July 14, 2022 Verified By: ALDO DEVINE MD CLINICAL STATEMENT: IMPRESSION: Appropriate positioning of the OG tube. XR Chest 1 View Result Date: July 14, 2022 Verified By: EDER CLARK MD CLINICAL STATEMENT: IMPRESSION: Grossly unchanged bibasilar infiltrates/atelectasis and small left pleuraleffusion. I have personally reviewed the images of this examination, and agree with theresident's findings and interpretation. CT Spine Cervical w/o Contrast Result Date: July 14, 2022 Verified By: EDER CLARK MD CLINICAL STATEMENT: IMPRESSION: Instrumented posterior fusion of C2 through T2 and laminectomy of C2 throughC6. Bilateral pedicle fracture of C6 with extension distraction fracture C6-T1trvbg no change in alignment. XR Chest 1 View Result Date: July 13, 2022 Verified By: JARETH MAK MD CLINICAL STATEMENT: IMPRESSION: 1. Endotracheal tube terminating approximately 5.3 cm above the judith. 2. Interval placement surgical hardware throughout the cervical spine 3. Unchanged bibasilar reticular opacities favoring atelectasis withadditional airspace disease felt to be less likely however not excluded. 4. Unchanged small left pleural effusion. I have personally reviewed the images of this examination and agree with theresident's findings and interpretation. XR Spine Cervical Ap/Lat Result Date: July 13, 2022 Verified By: ROMINA STUBBS, RICHAR Mohan CLINICAL STATEMENT: IMPRESSION: Severely limited exam. A surgical sponge is not clearly identified. XR Fluoro 2 Hrs Tech Time Result Date: July 13, 2022 Verified By: EDER CLARK MD CLINICAL STATEMENT: IMPRESSION: Intraprocedural fluoroscopic spot images as above. See separate procedurereport for more information. XR Chest 1 View Result Date: July 12, 2022 Verified By: GRETCHEN TAYLOR MD CLINICAL STATEMENT: IMPRESSION: No significant change in the bibasilar atelectasis or other airspace diseaseand small left pleural effusion. XR Spine Cervical 1 View Result Date: July 12, 2022 Verified By: EDER CLARK MD CLINICAL STATEMENT: IMPRESSION: Nondiagnostic assessment of alignment of C6-C7 where known subluxation wasdemonstrated on prior CT scan. XR Spine Thoracic 1 View Result Date: July 11, 2022 Verified By: YOAV PALOMINO DO CLINICAL STATEMENT: IMPRESSION: Nearly nondiagnostic exam secondary to body habitus. No obvious compressionfracture or spondylolisthesis in the visualized spine. ATTENDING ADDENDUM: This exam is nondiagnostic to excludethoracic fracture or traumaticmalalignment, especially in the setting of known cervical spine fractu re.Exam is limited secondary to portable cross-table lateral technique. XR Spine Cervical 1 View Result Date: July 11, 2022 Verified By: YOAV PALOMINO DO CLINICAL STATEMENT: IMPRESSION: Limited exam secondary to inability to perform swimmer's view. Anterior discspace widening at C6-7 is again noted, however C7 is not well demonstratedand subluxation cannot be adequately assessed. I have reviewed the resident's preliminary report and agree with findings andimpression. MRI Spine Cervical w/o Contrast Result Date: July 11, 2022 Verified By: ROBERTA ROSARIO MD CLINICAL STATEMENT: IMPRESSION: Displaced and distracted C6-C7 fracture. There is stenosis at this level,but there is no definite cord compression and there is no abnormal signal inthe cord at this or any other level. 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 Milder degenerative changes at the remaining levels. Mild stenosis at C4-C5and C5-C6. Signal changes in the ishmael, likely small vessel ischemic disease. Objective Vitals and Measurements T: 36.7 C (Oral) TMIN: 36.7 C (Oral) TMAX: 36.8 C (Oral) HR: 99(Monitored) RR: 18 BP: 114/51 SpO2: 95% Weight Dosing Weight: 98.7 kg (07/13/22) Dosing Weight: 98.7 kg (07/11/22) Code Status Code Status - Ordered -- 07/11/22 17:23:00 EDT, Full Code, Constant Order Admission Date 07/11/2022 Discharge Date 07/21/2022 Patient Instructions Follow up appointment will be with Dr. Matthews's Nurse Practitioner, Renetta Rojo CNP. No aspirin, aspirin products, NSAIDS until cleared by Neurosurgery. Shalini brace is to be worn at all times. Keep incision dry until completely healed- 2 weeks post-op (07/28/2022). May shower, but cover incision with plastic wrap to ensure it remains dry. No lifting more than 10 lbs. Change dressing daily until healed- about 2 weeks postop. Medications New Prescription docusate (Colace 100 mg oral capsule)1 cap by mouth two (2) times a day as needed Constipation. docusate-senna (docusate-senna 50 mg-8.6 mg oral tablet)1 tab(s) by mouth two (2) times a day. heparin (heparin 5000 units/mL injection)1 Milliliter Subcutaneous every 8 hours. insulin lispro (HumaLOG) (HumaLOG 100 units/mL subcutaneous solution)Give 0-10 units/dose Subcutaneous three (3) times a day before meals. nystatin topical (nystatin 100,000 units/g topical powder)1 application Topical As Directed. oxyCODONE (oxyCODONE 5 mg oral tablet ( IMMEDIATE release ))1 tab(s) by mouth every 6 hours as needed Pain, scale 4-10. pantoprazole (pantoprazole 40 mg oral enteric coated tablet)1 tab(s) by mouth once a day before a meal. polyethylene glycol 3350by mouth once a day. polyethylene glycol 3350by mouth once a day as needed Constipation. Unchanged estradiol topical (estradiol 0.1 mg/g vaginal cream)1 Applicatorful Vaginal twice a week for 30 Days. Refills: 11. gabapentin (gabapentin 300 mg oral capsule)1 cap by mouth three (3) times a day. losartan (losartan 100 mg oral tablet)1 tab(s) by mouth once a day. Refills: 3. metoprolol (metoprolol succinate 50 mg oral TABLET extended release)1 tab(s) by mouth once a day. Refills: 3. simvastatin (simvastatin 10 mg oral tablet)1 tab(s) by mouth daily at bedtime. Refills: 0. Discontinued aspirin (aspirin 81 mg oral delayed release tablet)1 tab(s) by mouth every day. diclofenac (diclofenac potassium 50 mg oral tablet)1 tab(s) by mouth once a day. Refills: 3. dicyclomine (dicyclomine 20 mg oral tablet)1 tab(s) by mouth two (2) times a day for 90 Days. Refills: 3. furosemide (Lasix 20 mg oral tablet)1 tab(s) by mouth two (2) times a day. Refills: 3. glimepiride (glimepiride 4 mg oral tablet)1 tab(s) by mouth once a day. Refills: 3. mirabegron (Myrbetriq 25 mg oral tablet, extended release)1 tab(s) by mouth once a day. Refills: 3. nitroGLYcerin (nitroglycerin 0.4 mg sublingual tablet)1 tab(s) under the tongue every 5 minutes. omeprazole (omeprazole 20 mg oral delayed release capsule)1 cap by mouth once a day before a meal as needed abdominal discomfort. Refills: 3. oxybutynin (oxybutynin 5 mg oral tablet)1 tab(s) by mouth once a day. Refills: 3. Follow Up Follow Up with BYRON STUBBS, TRACE Sprague, Neurosurgery When 07/27/2022 09:30 AM EDT Where: [address] [place] [address]- [phone] Follow Up Appointments See above Follow Up Labs/Studies Discharge Labs No Follow-up Labs Discharge Studies Discharge Outpatient to Other Therapy/Tests - Ordered -- Your therapy ordered is: VL Venous US doppler RLE, Relevant Diagnosis: Acute DVT (deep venous th, Reason for therapy: Follow up, 1 week (07/25/22), 07/20/22 12:33:00 EDT Discharge Outpatient to Other Therapy/Tests - Ordered -- Your therapy ordered is: VL Venous US doppler RLE, Relevant Diagnosis: Acute DVT (deep venous th, Reason for therapy: Follow up, 07/20/22 12:33:00 EDT Discharge Diet May resume home diet. Discharge Activity See above Condition on Discharge Stable Readmission Risk/Palliative Score No qualifying data available. Discharge Disposition [facility] Information Provided To Patient and [facility] Time Spent 15 min Digitally Signed by ARYAN VAZ on 07/21/2022 08:46 AM Digitally Signed by TRACE MATTHEWS MD on 07/21/2022 11:25 AM [id number] Note Date of Service 07/21/22 Chief Complaint Weakness Subjective Patient is a very pleasant 71-year-old female with a past medical history significant for hypertension, obesity, hyperlipidemia, COPD, severe restrictive airway disease follows with [facility] pulmonology, noninsulin-dependent type 2 diabetes, venous insufficiency, goiter, GERD, chronic back pain and hypoxic respiratory failure wearing 2 L oxygen via nasal cannula continuous at home. Patient originally presented to [facility] emergency department on July 11, 2022. Patient sustained a mechanical fall over her walker landing on the left side of her face. [facility]. Patient was noted to have significant cervical spine injury and transferred to [facility] emergency department for further evaluation. 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 Patient was admitted under neurosurgery services and admitted to the intensive care unit. On July 13, 2022 patient underwent C2 to C7 decompressive laminectomy, C2to T2 posterior bone screw/merari fixation and fusion by Dr. Michaud. Patient has been successfully weaned to baseline oxygen. Patient was found to have E. coli urinary tract infection. She has completed a full course of ceftriaxone. Patient underwent bilateral lower extremity venous Dopplers. She was found to have an acute right soleal vein DVT. Patient is to have repeat right lower extremity Doppler in 1 week and then again in 4 weeks. Patient is up to chair. No family at bedside. Patient states she is feeling well. Patient denies all complaints. Objective Vitals and Measurements T: 36.4 C (Oral) TMIN: 36.4 C (Oral) TMAX: 36.8 C (Oral) HR: 80(Apical) RR: 18 BP: 128/53 SpO2: 94% Intake and Output 7AM Yesterday to 7AM Today Intake and Output (Last 24 hours) Intake Oral Intake 300.00 Output Urinary Catheter Output: 100.00 Stool Count 0.00 Diaper Count 3.00 Emesis Count 0.00 Total Summary Total Intake 300.00 Total Output 100.00 Fluid Balance 200.00 Physical Exam Vitals Signs(Last 24 hrs)__ Last Charted Minimum Maximum Temp 35.9(JUL 21:) 35.9(JUL 21:) 35.9(JUL 21:) Heart Rate 97(JUL 21 13:) 90(JUL 21 07:35) 99(JUL 21 00:06) Resp Rate 18(JUL 21:) 18(JUL 20 15:30) 20(JUL 20 19:50) SBP 114(JUL 21 13:01) 114(JUL 21 03:43) 139(JUL 20 19:50) DBP 76(JUL 21 13:01) L 51(JUL 21 03:43) 76(JUL 21:) Physical Exam General: No acute distress. Alert and Appropriate. Shalini brace in place. Skin: No rash. Scattered healing ecchymotic areas. Warm, Dry, Intact HEENT: Head is normocephalic and atraumatic. No lesions. Pupils equal in size. Extraocular movements within normal limits. Nose: No septal deviation. Mouth: Oropharynx mucosa is without lesion. Neck: Supple. No lymphadenopathy, thyromegaly noted. Lungs: Bilaterally diminished breath sounds with no crepitation or wheeze. Unlabored Cardiovascular: Heart is regular rhythm, S1S2, No extra-audible heart tones Abdomen: Abdomen is soft, nontender. Bowel sounds positive all four quadrants. Extremities: No clubbing, cyanosis or edema. Peripheral pulses palpable. No calf tenderness. Adequate peripheral circulation. Neurological: The patient is awake, oriented to time, people and place. Following simple commands, moving all extremities. Weight Dosing Weight: 98.7 kg (07/13/22) Dosing Weight: 98.7 kg (07/11/22) Medications Medications (18) Active Scheduled: (11) atorvastatin 10 mg tablet 10 mg 1 tab(s), Oral, qHS ceFAZolin 1 gram(s) 10 mL, Topical (INT), PREOP pharm docusate-senna (Senokot S) 50 mg-8.6 mg Tablet 1 tab(s), Oral, BID gabapentin 300 mg Capsule 300 mg 1 cap(s), Oral, TID heparin 5,000 units/mL (1 mL) vial 5,000 unit(s) 1 mL, Subcutaneous, q8h insulin lispro 100 units/mL Soln (3 mL) Give 0-10 units/dose, Subcutaneous, TIDAC losartan 50 mg tablet 50 mg 1 tab(s), Oral, qDay metoprolol succinate 50 mg ER tablet 50 mg 1 tab(s), Oral, qDayM nystatin powder 100,000 units/g 15 Gram(s) 1 marcy, Topical, AsDirected pantoprazole 40 mg EC tablet 40 mg 1 tab(s), Oral, qDayAC polyethylene glycol 3350 - UD packet 17 gram(s) 15 mL, Oral, qDay Continuous: (0) PRN: (7) acetaminophen 325 mg Tablet 650 mg 2 tab(s), Oral, q6hr docusate sodium 100 mg Capsule 100 mg 1 cap(s), Oral, BID HYDROmorphone 0.5 mg/0.5 mL PF syringe 0.5 mg 0.5 mL, IV Push, q4h ondansetron 2 mg/ 1 mL 2 mL INJ 4 mg 2 mL, IV Push, q4h oxycodone 5 mg tablet (immediate release) 5 mg 1 tab(s), Oral, q6hr polyethylene glycol 3350 - UD packet 17 gram(s) 15 mL, Oral, qDay prochlorperazine 10 mg/2 mL vial 5 mg 1 mL, IV Push, q4h Lab Results 07/20 13:03 Glucose Level: 144 H Sodium Level: 144 Potassium Level: 3.5 BUN: 14.0 Creatinine Lvl (s): 0.54 EKG No qualifying data available. Assessment/Plan 1. S/P fall, resulting in C6-7 distraction injury with bilateral pedicle fractures 2. S/P C2-C7 decompressive laminectomy, C2-T2 posterior bone screw/merari fixation and fusion 3. DM2 (diabetes mellitus, type 2) 4. Hypertension 5. Chronic respiratory failure with hypoxia, on home oxygen therapy 2L NC 6. E-coli UTI 7. Acute DVT (deep venous thrombosis) right soleal vein. S/P C2 to C7 decompressive laminectomy, C2 to T2 posterior bone screw/merari fixation and fusion. Patient appears to be doing well postoperatively. Postoperative care per primary/neurosurgery team. Acute right soleal vein-DVT below the knee. Recommend repeat right lower extremity venous Doppler in 1 week and then again in 4 weeks. Results to be sent to patient's primary care physician covering provider at snf facility. Continue home medication. Blood glucose checks TID. Sliding scale TID ADA diet Glycemic goal <180 Hypokalemia- resolved. Repeat BMP from yesterday reviewed. Chronic hypoxic respiratory failure. Patient is tolerating oxygen via nasal cannula. 2 L which is baseline. Acute E. coli urinary tract infection. Patient has completed a full course of ceftriaxone Physical Therapy and occupational therapy involved. Recommending patient be discharged to snf facility. Patient is agreeable to discharge to snf facility. Discharge per primary team. At this time patient is medically optimized for discharge. Will sign off at this time. Please call with questions. Discussed with my collaborating physician Dr. Fabiano Rubio. This dictation was performed using voice recognition software and may include grammatical and/or spelling errors. Orders: Discharge Outpatient to Other Therapy/Tests Discharge Outpatient to Other Therapy/Tests Time Spent 22 minutes >50% of the time was spent in counseling and/or coordination of care. Digitally Signed by JOANNA TOMLINSON on 07/21/2022 02:49 PM [id number] Discharge summary Date of Service 07/21/2022 Discharge Diagnosis 1. S/P fall, resulting in C6-7 distraction injury with bilateral pedicle fractures ([id number] - [facility]) 2. S/P C2-C7 decompressive laminectomy, C2-T2 posterior bone screw/merari fixation and fusion ([id number] - [facility]) 3. DM2 (diabetes mellitus, type 2) (E11.9 - ICD-10-CM) 4. Hypertension (I10 - ICD-10-CM) 5. Chronic respiratory failure with hypoxia, on home oxygen therapy 2L NC (J96.11 - ICD-10-CM) 6. E-coli UTI (N39.0 - ICD-10-CM) 7. Acute DVT (deep venous thrombosis) right soleal vein. (I82.409 - ICD-10-CM) Dislocation of C6/C7 cervical vertebrae, initial encounter (S13.171A - ICD-10-CM) Unspecified cord compression (G95.20 - ICD-10-CM) Other specified diseases of spinal cord (G95.89 - ICD-10-CM) Unspecified injury of neck, initial encounter (S19.9XXA - ICD-10-CM) Spinal stenosis, site unspecified (M48.00 - ICD-10-CM) Unspecified displaced fracture of sixth cervical vertebra, initial encounter for closed fracture (S12.500A - ICD-10-CM) Exposure to other specified factors, initial encounter (X58.XXXA - ICD-10-CM) Hospital Course This is a 71-year-old female, who sustained an unstable C6-7 fracture/dislocation status post falling over her walker and landing on the left side of her body and face. She was evaluated in the [facility] emergency department, where she was found to have a distraction extension fracture at C6/7 with bilateral pedicle fractures. She was taken to surgery on 07/13/2022 for a C2-C7 decompressive laminectomy and C2-T2 posterior bone screw/merari fixation and fusion. She did have some facial swelling from her fall, and therefore remained intubated post-op. She was extubated on post-op day #2 (07/15/2022). Please see Dr. Michaud's operative note for further details regarding the surgical procedure. On exam, she is awake and alert. Sitting up in chair. She is able to move all 4 extremities strongly. She complains of some numbness only in her left thumb. Dorsiflexion and plantar flexion are strong. Hand grasps are strong. Posterior cervical dressing is dry and intact. She remains in a Shalini brace. She is voiding without difficulty. She has been eating and drinking well. PT/OT eval-recommend inpatient rehab. Dopplar 07/18/2022-DVT right soleal vein. Currently on sq heparin for DVT prophylaxis. Hospitalist evaluated yesterday. No anticoagulation at this time since below the knee. Plan repeat dopplarin 1 week. Patient is overall doing well. She is ready to be discharged to [facility]. Her discharge instructions and restrictions been provided to [facility]. Her follow-up appointment has been arranged. Allergies NKA Procedures S/P C2 to C7 decompressive laminectomy, C2 to T2 posterior bone screw/merari fixation (Infinity; [employer]) with autograft/allograft (Infuse; [employer]) fusion with navigation and intraoperative SSEP, MEP and EMG monitoring- Consults Consult to Physician - Ordered -- 07/11/22 14:17:00 EDT, VAISHALI PIKE (For Consultation Assignment Only NO other Orders), Routine, surgical clearance, Please evaluate preop for clearance. Has distracted fracture c6-7 Consult to Physician - Ordered -- 07/11/22 17:23:00 EDT, SIMON SHIELDS MD, Routine, Other, Please follow medically while in SICU. Clearance for surgical intervention, C2-T3 fusion, acdf c6-7 Consult to Physician - Ordered -- 07/20/22 10:26:00 EDT, VAISHALI PIKE (For Consultation Assignment Only NO other Orders), Routine, Med management and right LE DVT- ok for anticoag if need for tx of DVT. Imaging Results and Diagnostics XR Chest 1 View Result Date: July 15, 2022 Verified By: EDER CLARK MD CLINICAL STATEMENT: IMPRESSION: No significant interval change, with persistent bibasilarinfiltrates/atelectasis and small left pleural effusion. I have personally reviewed the images of this examination, and agree withtheresident's findings and interpretation. XR Enteric Tube Placement Result Date: July 14, 2022 Verified By: ALDO DEVINE MD CLINICAL STATEMENT: IMPRESSION: Appropriate positioning of the OG tube. XR Chest 1 View Result Date: July 14, 2022 Verified By: EDER CLARK MD CLINICAL STATEMENT: IMPRESSION: Grossly unchanged bibasilar infiltrates/atelectasis and small left pleuraleffusion. I have personally reviewed the images of this examination, and agree with theresident's findings and interpretation. CT Spine Cervical w/o Contrast Result Date: July 14, 2022 Verified By: EDER CLARK MD CLINICAL STATEMENT: IMPRESSION: Instrumented posterior fusion of C2 through T2 and laminectomy of C2 throughC6. Bilateral pedicle fracture of C6 with extension distraction fracture [id number] no change in alignment. XR Chest 1 View Result Date: July 13, 2022 Verified By: JARETH MAK MD CLINICAL STATEMENT: IMPRESSION: 1. Endotracheal tube terminating approximately 5.3 cm above the judith. 2. Interval placement surgical hardware throughout the cervical spine 3. Unchanged bibasilar reticular opacities favoring atelectasis withadditional airspace disease felt to be less likely however not excluded. 4. Unchanged small left pleural effusion. I have personally reviewed the images of this examination and agree with theresident's findings and interpretation. XR Spine Cervical Ap/Lat Result Date: July 13, 2022 Verified By: RICHAR HASSAN MD CLINICAL STATEMENT: IMPRESSION: Severely limited exam. A surgical sponge is not clearly identified. XR Fluoro 2 Hrs Tech Time Result Date: July 13, 2022 Verified By: EDER CLARK MD CLINICAL STATEMENT: IMPRESSION: Intraprocedural fluoroscopic spot images as above. See separate procedurereport for more information. XR Chest 1 View Result Date: July 12, 2022 Verified By: GRETCHEN TAYLOR MD CLINICAL STATEMENT: IMPRESSION: No significant change in the bibasilar atelectasis or other airspace diseaseand small left pleural effusion. XR Spine Cervical 1 View Result Date: July 12, 2022 Verified By: EDER CLARK MD CLINICAL STATEMENT: IMPRESSION: Nondiagnostic assessment of alignment of C6-C7 where known subluxation wasdemonstrated on prior CT scan. XR Spine Thoracic 1 View Result Date: July 11, 2022 Verified By: YOAV PALOMINO DO CLINICAL STATEMENT: IMPRESSION: Nearly nondiagnostic exam secondary to body habitus. No obvious compressionfracture or spondylolisthesis in the visualized spine. ATTENDING ADDENDUM: This exam is nondiagnostic to excludethoracic fracture or traumaticmalalignment, especially in the setting of known cervical spine fractu re.Exam is limited secondary to portable cross-table lateral technique. XR Spine Cervical 1 View Result Date: July 11, 2022 Verified By: YOAV PALOMINO DO CLINICAL STATEMENT: IMPRESSION: Limited exam secondary to inability to perform swimmer's view. Anterior discspace widening at C6-7 is again noted, however C7 is not well demonstratedand subluxation cannot be adequately assessed. I have reviewed the resident's preliminary report and agree with findings andimpression. MRI Spine Cervical w/o Contrast Result Date: July 11, 2022 Verified By: ROBERTA ROSARIO MD CLINICAL STATEMENT: IMPRESSION: Displaced and distracted C6-C7 fracture. There is stenosis at this level,but there is no definite cord compression and there is no abnormal signal inthe cord at this or any other level. 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 Milder degenerative changes at the remaining levels. Mild stenosis at C4-C5and C5-C6. Signal changes in the ishmael, likely small vessel ischemic disease. Objective Vitals and Measurements T: 36.7 C (Oral) TMIN: 36.7 C (Oral) TMAX: 36.8 C (Oral) HR: 99(Monitored) RR: 18 BP: 114/51 SpO2: 95% Weight Dosing Weight: 98.7 kg (07/13/22) Dosing Weight: 98.7 kg (07/11/22) Code Status Code Status - Ordered -- 07/11/22 17:23:00 EDT, Full Code, Constant Order Admission Date 07/11/2022 Discharge Date 07/21/2022 Patient Instructions Follow up appointment will be with Dr. Matthews's Nurse Practitioner, Renetta Rojo CNP. No aspirin, aspirin products, NSAIDS until cleared by Neurosurgery. Shalini brace is to be worn at all times. Keep incision dry until completely healed- 2 weeks post-op (07/28/2022). May shower, but cover incision with plastic wrap to ensure it remains dry. No lifting more than 10 lbs. Change dressing daily until healed- about 2 weeks postop. Medications New Prescription docusate (Colace 100 mg oral capsule)1 cap by mouth two (2) times a day as needed Constipation. docusate-senna (docusate-senna 50 mg-8.6 mg oral tablet)1 tab(s) by mouth two (2) times a day. heparin (heparin 5000 units/mL injection)1 Milliliter Subcutaneous every 8 hours. insulin lispro (HumaLOG) (HumaLOG 100 units/mL subcutaneous solution)Give 0-10 units/dose Subcutaneous three (3) times a day before meals. nystatin topical (nystatin 100,000 units/g topical powder)1 application Topical As Directed. oxyCODONE (oxyCODONE 5 mg oral tablet ( IMMEDIATE release ))1 tab(s) by mouth every 6 hours as needed Pain, scale 4-10. pantoprazole (pantoprazole 40 mg oral enteric coated tablet)1 tab(s) by mouth once a day before a meal. polyethylene glycol 3350by mouth once a day. polyethylene glycol 3350by mouth once a day as needed Constipation. Unchanged estradiol topical (estradiol 0.1 mg/g vaginal cream)1 Applicatorful Vaginal twice a week for 30 Days. Refills: 11. gabapentin (gabapentin 300 mg oral capsule)1 cap by mouth three (3) times a day. losartan (losartan 100 mg oral tablet)1 tab(s) by mouth once a day. Refills: 3. metoprolol (metoprolol succinate 50 mg oral TABLET extended release)1 tab(s) by mouth once a day. Refills: 3. simvastatin (simvastatin 10 mg oral tablet)1 tab(s) by mouth daily at bedtime. Refills: 0. Discontinued aspirin (aspirin 81 mg oral delayed release tablet)1 tab(s) by mouth every day. diclofenac (diclofenac potassium 50 mg oral tablet)1 tab(s) by mouth once a day. Refills: 3. dicyclomine (dicyclomine 20 mg oral tablet)1 tab(s) by mouth two (2) times a day for 90 Days. Refills: 3. furosemide (Lasix 20 mg oral tablet)1 tab(s) by mouth two (2) times a day. Refills: 3. glimepiride (glimepiride 4 mg oral tablet)1 tab(s) by mouth once a day. Refills: 3. mirabegron (Myrbetriq 25 mg oral tablet, extended release)1 tab(s) by mouth once a day. Refills: 3. nitroGLYcerin (nitroglycerin 0.4 mg sublingual tablet)1 tab(s) under the tongue every 5 minutes. omeprazole (omeprazole 20 mg oral delayed release capsule)1 cap by mouth once a day before a meal as needed abdominal discomfort. Refills: 3. oxybutynin (oxybutynin 5 mg oral tablet)1 tab(s) by mouth once a day. Refills: 3. Follow Up Follow Up with TRACE MATTHEWS MD, Neurosurgery When 07/27/2022 09:30 AM EDT Where: [address] [facility] [address] [facility] [place] [address]- [phone] Follow Up Appointments See above Follow Up Labs/Studies Discharge Labs No Follow-up Labs Discharge Studies Discharge Outpatient to Other Therapy/Tests - Ordered -- Your therapy ordered is: VL Venous US doppler RLE, Relevant Diagnosis: Acute DVT (deep venous th, Reason for therapy: Follow up, 1 week (07/25/22), 07/20/22 12:33:00 EDT Discharge Outpatient to Other Therapy/Tests - Ordered -- Your therapy ordered is: VL Venous US doppler RLE, Relevant Diagnosis: Acute DVT (deep venous th, Reason for therapy: Follow up, 07/20/22 12:33:00 EDT Discharge Diet May resume home diet. Discharge Activity See above Condition on Discharge Stable Readmission Risk/Palliative Score No qualifying data available. Discharge Disposition [facility] Information Provided To Patient and [facility] Time Spent 15 min Digitally Signed by ARYAN VAZ on 07/21/2022 08:46 AM Digitally Signed by TRACE MATTHEWS MD on 07/21/2022 11:25 AM [id number] Note Date of Service 07/20/22 Reason for Consultation Medical management Referring Physician Dr. Matthews History of Present Illness Patient is a very pleasant 71-year-old female with a past medical history significant for hypertension, obesity, hyperlipidemia, COPD, severe restrictive airway disease follows with [facility] pulmonology, noninsulin-dependent type 2 diabetes, venous insufficiency, goiter, GERD, chronic back pain and hypoxic respiratory failure wearing 2 L oxygen via nasal cannula continuous at home. Patient originally presented to [facility] emergency department on July 11, 2022. Patient sustained a mechanical fall over her walker landing on the left side of her face. [facility]. Patient was noted to have significant cervical spine injury and transferred to [facility] emergency department for further evaluation. 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 Patient was admitted under neurosurgery services and admitted to the intensive care unit. On July 13, 2022 patient underwent C2 to C7 decompressive laminectomy, C2to T2 posterior bone screw/merari fixation and fusion by Dr. Michaud. Patient has been successfully weaned to baseline oxygen. Patient was found to have E. coli urinary tract infection. She has completed a full course of ceftriaxone. Patient underwent bilateral lower extremity venous Dopplers. She was found to have an acute right soleal vein DVT. Patient is currently resting in bed. There is no family at bedside. Patient is alert and oriented. She answers questions appropriately. Patient states she is feeling well. Patient complains of soreness at previous HASMUKH site. Patient denies shortness of breath, chest pain, palpitations, dizziness, blurred vision, difficulty speaking, nausea, vomiting, diarrhea, constipation, urinary symptoms, night sweats, cough, fever and chills. She complains of an occasional dry nonproductive cough. Pain is well controlled. Tolerating diet without difficulty Review of Systems Review of Systems: Reviewed in detail, including general health, HEENT, cardiovascular, respiratory, gastrointestinal, genitourinary, endocrine, musculoskeletal, neurologic, vascular, skin, and psychiatric. All are negative except for those listed in the History of Present Illness Physical Exam Vitals and Measurements T: 36.7 C (Oral) TMIN: 36.7 C (Oral) TMAX: 36.9 C (Oral) HR: 106(Apical) RR: 18 BP: 119/84 SpO2: 94% Weight Dosing Weight: 98.7 kg (07/13/22) Dosing Weight: 98.7 kg (07/11/22) Physical Exam General: No acute distress. Alert and Appropriate Shalini brace in place. Skin: No rash. Warm, Dry, Intact HEENT: Head is normocephalic and atraumatic. No lesions. Pupils equal in size. Extraocular movements within normal limits. Nose: No septal deviation. Mouth: Oropharynx mucosa is without lesion. Neck: Supple. No lymphadenopathy, thyromegaly noted. Lungs: Bilaterally diminished breath sounds with no crepitation or wheeze. Unlabored Cardiovascular: Heart is regular rhythm, S1S2, No extra-audible heart tones Abdomen: Abdomen is soft, nontender. Bowel sounds positive all four quadrants. Extremities: No clubbing, cyanosis or edema. Peripheral pulses palpable. No calf tenderness. Adequate peripheral circulation. Neurological: The patient is awake, oriented to time, people and place. Following simple commands, moving all extremities. Lab Results 07/19 05:16 WBC: 8.3 Hgb: 8.9 L Hct: 26.6 L Platelet: 132 L Neutrophil %: 80.8 H Glucose Level: 171 H Sodium Level: 145 Potassium Level: 3.4 L BUN: 13.0 Creatinine Lvl (s): 0.47 L Assessment/Plan 1. S/P fall, resulting in C6-7 distraction injury with bilateral pedicle fractures 2. S/P C2-C7 decompressive laminectomy, C2-T2 posterior bone screw/merari fixation and fusion 3. DM2 (diabetes mellitus, type 2) 4. Hypertension 5. Chronic respiratory failure with hypoxia, on home oxygen therapy 2L NC 6. E-coli UTI 7. Acute DVT (deep venous thrombosis) right soleal vein. S/P C2 to C7 decompressive laminectomy, C2 to T2 posterior bone screw/merari fixation and fusion. Patient appears to be doing well postoperatively. Postoperative care per primary/neurosurgery team. Acute right soleal vein-DVT below the knee. Recommend repeat right lower extremity venous Doppler in 1 week and then again in 4 weeks. Results to be sent to patient's primary care physician covering provider at snf facility. Continue home medication. Blood glucose checks TID. Sliding scale TID ADA diet Glycemic goal <180 Hypokalemia- resolved. Repeat BMP reviewed. Chronic hypoxic respiratory failure. Patient is tolerating oxygen via nasal cannula. 2 L which is baseline. Acute E. coli urinary tract infection. Patient has completed a full course of ceftriaxone Therapy and occasional therapy consult. Recommending patient be discharged to snf facility. Patient is agreeable to discharge to snf facility. Discharge per primary team. At this time patient is medically optimized for discharge. Discussed with my collaborating physician Dr. Levon Tapia This dictation was performed using voice recognition software and may include grammatical and/or spelling errors. Problem List/Past Medical History Ongoing Chronic anemia Chronic back pain COPD GERD (gastroesophageal reflux disease) Goiter Hyperlipidemia Hypertension, essential Incontinence of urine Historical H/O hypercholesterolemia Hypernatremia Procedure/Surgical History Appendectomy None Cholecystectomy Arthroscopic knee operation Tubal ligation Lumpectomy of breast Esophagogastroduodenoscopy Phacoemulsification of cataract with intraocular lens implantation Cardiac catheter Colonoscopy Medications Inpatient atorvastatin, 10 mg= 1 tab(s), Oral, qHS ceFAZolin Colace, 100 mg= 1 cap(s), Oral, BID, PRN Compazine, 5 mg= 1 mL, IV Push, q4h, PRN Dilaudid, 0.5 mg= 0.5 mL, IV Push, q4h, PRN docusate-senna 50 mg-8.6 mg oral tablet, 1 tab(s), Oral, BID gabapentin, 300 mg= 1 cap(s), Oral, TID heparin 5000 units/mL injection, 5000 unit(s)= 1 mL, Subcutaneous, q8h HumaLOG 100 units/mL subcutaneous solution, Give 0-10 units/dose, Subcutaneous, TIDAC losartan, 50 mg= 1 tab(s), Oral, qDay Miralax Powder Packet, 17 gram(s)= 15 mL, Oral, qDay, PRN Miralax Powder Packet, 17 gram(s)= 15 mL, Oral, qDay nystatin topical, 1 marcy, Topical, AsDirected oxyCODONE 5 mg oral tablet ( IMMEDIATE release ), 5 mg= 1 tab(s), Oral, q6hr, PRN pantoprazole, 40 mg= 1 tab(s), Oral, qDayAC Toprol-XL, 50 mg= 1 tab(s), Oral, qDayM Tylenol, 650 mg= 2 tab(s), Oral, q6hr, PRN Zofran, 4 mg= 2 mL, IV Push, q4h, PRN Home aspirin 81 mg oral delayed release tablet, 81 mg= 1 tab(s), Oral, Daily, Unable to obtain diclofenac potassium 50 mg oral tablet, 50 mg= 1 tab(s), Oral, qDay, 3 refills, Unable to obtain dicyclomine 20 mg oral tablet, 20 mg= 1 tab(s), Oral, BID, 3 refills, Investigating estradiol 0.1 mg/g vaginal cream, 1 appl, Vaginal, 2X/week, 11 refills, Unable to obtain gabapentin 300 mg oral capsule, 300 mg= 1 cap(s), Oral, TID, Unable to obtain glimepiride 4 mg oral tablet, 4 mg= 1 tab(s), Oral, qDay, 3 refills, Investigating Lasix 20 mg oral tablet, 20 mg= 1 tab(s), Oral, BID, 3 refills, Investigating losartan 100 mg oral tablet, 100 mg= 1 tab(s), Oral, qDay, 3 refills, Investigating metoprolol succinate 50 mg oral TABLET extended release, 50 mg= 1 tab(s), Oral, qDay, 3 refills, Investigating Myrbetriq 25 mg oral tablet, extended release, 25 mg= 1 tab(s), Oral, qDay, 3 refills, Unable to obtain nitroglycerin 0.4 mg sublingual tablet, 0.4 mg= 1 tab(s), Sublingual, q5min, Investigating omeprazole 20 mg oral delayed release capsule, 20 mg= 1 cap(s), Oral, qDayAC, PRN, 3 refills, Investigating oxybutynin 5 mg oral tablet, 5 mg= 1 tab(s), Oral, qDay, 3 refills, Unable to obtain simvastatin 10 mg oral tablet, 10 mg= 1 tab(s), Oral, qHS, Unable to obtain Allergies NKA Social History Smoking Status - 05/03/2018 Former smoker Alcohol Use: Never., 08/27/2019 Home/Environment Living situation: Home/Independent. Lives In: Multilevel home, 1st floor bedroom, 1st floor bathroom. Current Home Treatments Blood glucose monitoring, Oxygen therapy. Marital Status: ., 12/24/2019 Nutrition/Health Type of diet: Diabetic. Appetite Good. Eating Difficulties Swallowing., 12/24/2019 Caffeine intake amount: 2-3 servings of coffee daily., 08/27/2019 Substance Abuse Use: Never., 08/27/2019 Tobacco Nicotine Use: Former smoker, quit more than 30 days ago. Exposure to Tobacco Smoke Lives with someone who smokes. Started at age: 17 Years. Stopped at age: 49 Years., 03/10/2020 Family History Arthritis: Daughter. Cancer: Sister. Diverticulitis: Daughter. GERD (gastroesophageal reflux disease): Daughter. HTN - Hypertension: Mother. Heart disease: Father and Brother. Stroke: Mother. Immunizations No qualifying data available. Digitally Signed by JOANNA TOMLINSON on 07/20/2022 01:37 PM [id number] Neurological [facility] Progress note Date of Service 07/20/2022 Chief Complaint S/P C2 to C7 decompressive laminectomy, C2 to T2 posterior bone screw/merari fixation (Infinity; [employer]) with autograft/allograft (Infuse; [employer]) fusion with navigation and intraoperative SSEP, MEP and EMG [id number] day #7. This is a 71-year-old female, who sustained an unstable C6-7 fracture/dislocation status post falling over her walker and landing on the left side of her body and face. She was evaluated in the [facility] emergency department, where she was found to have a distraction extension fracture at C6/7 with bilateral pedicle fractures. She was taken to surgery on 07/13/2022 for a C2-C7 decompressive laminectomy and C2-T2 posterior bone screw/merari fixation and fusion. She did have some facial swelling from her fall, and therefore remained intubated post-op. She was extubated on post-op day #2 (07/15/2022). On exam, she is awake and alert. Sitting up in chair. She is able to move all 4 extremities strongly. She complains of some numbness only in her left thumb. Dorsiflexion and plantar flexion are strong. Hand grasps are strong. Posterior cervical dressing is dry and intact. She remains in a Shalini brace. She is voiding without difficulty. She has been eating and drinking well. PT/OT eval-recommend inpatient rehab. Dopplar 07/18/2022-DVT right soleal vein. Objective Vitals and Measurements T: 36.7 C (Oral) TMIN: 36.7 C (Oral) TMAX: 36.9 C (Oral) HR: 106(Apical) RR: 18 BP: 119/84 SpO2: 94% Intake and Output 7AM Yesterday to 7AM Today Intake and Output (Last 24 hours) Intake Oral Intake 480.00 Output Urinary Catheter Output: 700.00 Stool Count 1.00 Emesis Count 0.00 Total Summary Total Intake 480.00 Total Output 700.00 Fluid Balance -220.00 Physical Exam Weight Dosing Weight: 98.7 kg (07/13/22) Dosing Weight: 98.7 kg (07/11/22) Medications Medications (18) Active Scheduled: (11) atorvastatin 10 mg tablet 10 mg 1 tab(s), Oral, qHS ceFAZolin 1 gram(s) 10 mL, Topical (INT), PREOP pharm docusate-senna (Senokot S) 50 mg-8.6 mg Tablet 1 tab(s), Oral, BID gabapentin 300 mg Capsule 300 mg 1 cap(s), Oral, TID heparin 5,000 units/mL (1 mL) vial 5,000 unit(s) 1 mL, Subcutaneous, q8h insulin lispro 100 units/mL Soln (3 mL) Give 0-10 units/dose, Subcutaneous, TIDAC losartan 50 mg tablet 50 mg 1 tab(s), Oral, qDay metoprolol succinate 50 mg ER tablet 50 mg 1 tab(s), Oral, qDayM nystatin powder 100,000 units/g 15 Gram(s) 1 marcy, Topical, AsDirected pantoprazole 40 mg EC tablet 40 mg 1 tab(s), Oral, qDayAC polyethylene glycol 3350 - UD packet 17 gram(s) 15 mL, Oral, qDay Continuous: (0) PRN: (7) acetaminophen 325 mg Tablet 650 mg 2 tab(s), Oral, q6hr docusate sodium 100 mg Capsule 100 mg 1 cap(s), Oral, BID HYDROmorphone 0.5 mg/0.5 mL PF syringe 0.5 mg 0.5 mL, IV Push, q4h ondansetron 2 mg/ 1 mL 2 mL INJ 4 mg 2 mL, IV Push, q4h oxycodone 5 mg tablet (immediate release) 5 mg 1 tab(s), Oral, q6hr polyethylene glycol 3350 - UD packet 17 gram(s) 15 mL, Oral, qDay prochlorperazine 10 mg/2 mL vial 5 mg 1 mL, IV Push, q4h Lab Results 07/19 05:16 WBC: 8.3 Hgb: 8.9 L Hct: 26.6 L Platelet: 132 L Neutrophil %: 80.8 H Glucose Level: 171 H Sodium Level: 145 Potassium Level: 3.4 L BUN: 13.0 Creatinine Lvl (s): 0.47 L EKG No qualifying data available. Assessment/Plan S/P C2 to C7 decompressive laminectomy, C2 to T2 posterior bone screw/merari fixation and fusion: -Overall, patient doing well postoperatively. -Sitting up in the chair. -PT/OT eval- recommends skilled rehab. Social service is following. -Shalini brace at all times. Right Soleal Vein DVT: -Currently on Sq heparin -Dr. Johnson cleared patient for anticoagulation for treatment of DVT if needed. Hospitalist following for medical and pulmonary management. Time Spent 15 min Digitally Signed by ARYAN VZA on 07/20/2022 10:28 AM Digitally Signed by TRACE MATTHEWS MD on 07/20/2022 10:34 AM [id number] Progress note Date of Service July 19, 2022 Chief Complaint No acute overnight events Subjective . Objective Vitals and Measurements T: 36.9 C (Oral) TMIN: 36.9 C (Oral) TMAX: 37.1 C (Oral) HR: 107(Apical) RR: 19 BP: 140/68 SpO2: 97% Intake and Output 7AM Yesterday to 7AM Today Intake and Output (Last 24 hours) Intake Oral Intake 540.00 Output Surgical Drain, Tube Output: 68.00 Urinary Catheter Output: 900.00 Stool Count 5.00 Urine Count 1.00 Total Summary Total Intake 540.00 Total Output 968.00 Fluid Balance -428.00 Physical Exam Patient is awake, alert, complaining of mild incisional pain. But able to move all extremities withgood strength. Denying any numbness or tingling or sensory deficits Weight Dosing Weight: 98.7 kg (07/13/22) Dosing Weight: 98.7 kg (07/11/22) Medications Medications (18) Active Scheduled: (11) atorvastatin 10 mg tablet 10 mg 1 tab(s), Oral, qHS ceFAZolin 1 gram(s) 10 mL, Topical (INT), PREOP pharm docusate-senna (Senokot S) 50 mg-8.6 mg Tablet 1 tab(s), Oral, BID gabapentin 300 mg Capsule 300 mg 1 cap(s), Oral, TID heparin 5,000 units/mL (1 mL) vial 5,000 unit(s) 1 mL, Subcutaneous, q8h insulin lispro 100 units/mL Soln (3 mL) Give 0-10 units/dose, Subcutaneous, TIDAC losartan 50 mg tablet 50 mg 1 tab(s), Oral, qDay metoprolol succinate 50 mg ER tablet 50 mg 1 tab(s), Oral, qDayM nystatin powder 100,000 units/g 15 Gram(s) 1 marcy, Topical, AsDirected pantoprazole 40 mg EC tablet 40 mg 1 tab(s), Oral, qDayAC polyethylene glycol 3350 - UD packet 17 gram(s) 15 mL, Oral, qDay Continuous: (0) PRN: (7) acetaminophen 325 mg Tablet 650 mg 2 tab(s), Oral, q6hr docusate sodium 100 mg Capsule 100 mg 1 cap(s), Oral, BID HYDROmorphone 0.5 mg/0.5 mL PF syringe 0.5 mg 0.5 mL, IV Push, q4h ondansetron 2 mg/ 1 mL 2 mL INJ 4 mg 2 mL, IV Push, q4h oxycodone 5 mg tablet (immediate release) 5 mg 1 tab(s), Oral, q6hr polyethylene glycol 3350 - UD packet 17 gram(s) 15 mL, Oral, qDay prochlorperazine 10 mg/2 mL vial 5 mg 1 mL, IV Push, q4h Lab Results 07/19 05:16 WBC: 8.3 Hgb: 8.9 L Hct: 26.6 L Platelet: 132 L Neutrophil %: 80.8 H Glucose Level: 171 H Sodium Level: 145 Potassium Level: 3.4 L BUN: 13.0 Creatinine Lvl (s): 0.47 L 07/18 07:19 WBC: 6.3 Hgb: 8.8 L Hct: 26.3 L Platelet: 112 L Neutrophil %: 76.8 H 07/18 06:12 Glucose Level: 130 H Sodium Level: 147 H Potassium Level: 3.4 L BUN: 16.0 Creatinine Lvl (s): 0.55 EKG No qualifying data available. Assessment/Plan Fall HASMUKH drain to be removed today. Neck pain, trauma transfer C 6&7 fx Orders: Discontinue Order Digitally Signed by TRACE MATTHEWS MD on 07/19/2022 09:14 AM [id number] Note Date of Service 07/18/2022 Split/shared visit with Dr Michaud Neurosurgery CC: C6-7 distraction injury with bilateral pedicle fractures s/p Fall S/P C2-C7 decompressive laminectomy, C2-T2 posterior bone screw/merari fixation and fusion Patient is POD #5 from above surgery. Successfully extubated on POD #2, 07/15/2022. Has remained in the surgical intensive care unit postoperatively. Today, she is laying in bed, planning to get OOB this morning for breakfast. Staff at bedside to assist with this. Remains in Shalini brace. She has been compliant with use of this brace. Has some residual numbness in her left thumb, but states this is improved from prior to surgery. Denies any newnumbness or tingling post-op. Yesterday there was concern that measurements of right thigh, and bilateral LE calves has increased. Has chronic left calf pain x couple yrs per patient. Homans' sign is negative bilaterally. Orderedfor doppler U/S to assess for DVTs of bilateral LEs; this has not yet been performed. Patient prefers to be OOB, and up in chair. Has SCDs on bilaterally now, and while in bed. HASMUKH Drain output overnight/ last 8 hrs: Drain #1= 30mL Drain #2= 5mL Objective Vitals and Measurements T: 37.0 C (Oral) HR: 103(Monitored) RR: 19 BP: 138/68 SpO2: 95% Intake and Output 7AM Yesterday to 7AM Today Intake and Output (Last 24 hours) Intake Oral Intake 300.00 Output Surgical Drain, Tube Output: 100.00 Urine Voided 350.00 Urinary Catheter Output: 1150.00 Stool Count 3.00 Urine Count 3.00 Total Summary Total Intake 300.00 Total Output 1600.00 Fluid Balance -1300.00 Physical Exam Awake and alert. Oriented appropriately. Tolerating PO intake. No nausea/vomiting. Abdomen is soft. c/o constipation, she thinks it has beenabout 4 days since last BM and stool at that time was hardened and BM minimal. Received Senekot this AM. Respirations are unlabored and even. Regular heart rate and rhythm. Lungs are clear. Weight Dosing Weight: 98.7 kg (07/13/22) Dosing Weight: 98.7 kg (07/11/22) Medications Medications (19) Active Scheduled: (12) atorvastatin 10 mg tablet 10 mg 1 tab(s), Oral, qHS ceFAZolin 1 gram(s) 10 mL, Topical (INT), PREOP pharm cefTRIAXone IVP syringe 2 gram(s) 20 mL, IV Push (INT), qDay docusate-senna (Senokot S) 50 mg-8.6 mg Tablet 1 tab(s), Oral, BID gabapentin 300 mg Capsule 300 mg 1 cap(s), Oral, TID heparin 5,000 units/mL (1 mL) vial 5,000 unit(s) 1 mL, Subcutaneous, q8h insulin lispro 100 units/mL Soln (3 mL) Give 0-10 units/dose, Subcutaneous, TIDAC losartan 50 mg tablet 50 mg 1 tab(s), Oral, qDay metoprolol succinate 50 mg ER tablet 50 mg 1 tab(s), Oral, qDayM nystatin powder 100,000 units/g 15 Gram(s) 1 marcy, Topical, AsDirected pantoprazole 40 mg EC tablet 40 mg 1 tab(s), Oral, qDayAC polyethylene glycol 3350 - UD packet 17 gram(s) 15 mL, Oral, qDay Continuous: (0) PRN: (7) acetaminophen 325 mg Tablet 650 mg 2 tab(s), Oral, q6hr docusate sodium 100 mg Capsule 100 mg 1 cap(s), Oral, BID HYDROmorphone 0.5 mg/0.5 mL PF syringe 0.5 mg 0.5 mL, IV Push, q4h ondansetron 2 mg/ 1 mL 2 mL INJ 4 mg 2 mL, IV Push, q4h oxycodone 5 mg tablet (immediate release) 5 mg 1 tab(s), Oral, q6hr polyethylene glycol 3350 - UD packet 17 gram(s) 15 mL, Oral, qDay prochlorperazine 10 mg/2 mL vial 5 mg 1 mL, IV Push, q4h Lab Results 07/18 07:19 WBC: 6.3 Hgb: 8.8 L Hct: 26.3 L Platelet: 112 L Neutrophil %: 76.8 H 07/18 06:12 Glucose Level: 130 H Sodium Level: 147 H Potassium Level: 3.4 L BUN: 16.0 Creatinine Lvl (s): 0.55 07/17 07:05 WBC: 7.0 Hgb: 8.6 L Hct: 26.0 L Platelet: 121 L Neutrophil %: 77.0 H Glucose Level: 121 H Sodium Level: 147 H Potassium Level: 3.6 BUN: 23.0 H Creatinine Lvl (s): 0.58 EKG No qualifying data available. C6-7 distraction injury with bilateral pedicle fractures s/p Fall S/P C2-C7 decompressive laminectomy, C2-T2 posterior bone screw/merari fixation and fusion POD #4 No acute events overnight. Remains compliant with Shalini brace. Is to wear brace at all times. Has been getting out of bed daily, prefers to be up in chair. Thigh and calf measurements q shift, bedside RN reported increase yesterday in right thigh and bilateral calf circumferences. Venous doppler U/S ordered and awaiting completion of this test. Per Dr Michaud, now that patient is day 5 post-op, she is cleared to begin chemical DVT prophylaxis, ie heparin SQ injections. Per Dr Mihcaud, may discontinue HASMUKH drain #2 today. Keep HASMUKH drain #[address] HASMUKH Continue prophylactic antibiotics with drain intact. PT/OT evaluations completed, have provided recommendations for skilled rehab. [facility] HAND[employer]ER to assist with discharge planning. ICU team following for medical and pulmonary management; appreciate their support and assistance incare of patient. Please refer to Dr. Mccallum's addendum for further details. [1] VL Venous US/Doppler Both Legs(for DVT); 07/18/2022 11:00 EDT Digitally Signed by PELON RUIZ on 07/18/2022 04:44 PM [id number] Note Date of Service 07/18/2022 Split/shared visit with Dr Michaud Neurosurgery CC: C6-7 distraction injury with bilateral pedicle fractures s/p Fall S/P C2-C7 decompressive laminectomy, C2-T2 posterior bone screw/merari fixation and fusion Patient is POD #5 from above surgery. Successfully extubated on POD #2, 07/15/2022. Has remained in the surgical intensive care unit postoperatively. Today, she is laying in bed, planning to get OOB this morning for breakfast. Staff at bedside to assist with this. Remains in Shalini brace. She has been compliant with use of this brace. Has some residual numbness in her left thumb, but states this is improved from prior to surgery. Denies any newnumbness or tingling post-op. Yesterday there was concern that measurements of right thigh, and bilateral LE calves has increased. Has chronic left calf pain x couple yrs per patient. Homans' sign is negative bilaterally. Orderedfor doppler U/S to assess for DVTs of bilateral LEs; this has not yet been performed. Patient prefers to be OOB, and up in chair. Has SCDs on bilaterally now, and while in bed. HASMUKH Drain output overnight/ last 8 hrs: Drain #1= 30mL Drain #2= 5mL Objective Vitals and Measurements T: 37.0 C (Oral) HR: 103(Monitored) RR: 19 BP: 138/68 SpO2: 95% Intake and Output 7AM Yesterday to 7AM Today Intake and Output (Last 24 hours) Intake Oral Intake 300.00 Output Surgical Drain, Tube Output: 100.00 Urine Voided 350.00 Urinary Catheter Output: 1150.00 Stool Count 3.00 Urine Count 3.00 Total Summary Total Intake 300.00 Total Output 1600.00 Fluid Balance -1300.00 Physical Exam Awake and alert. Oriented appropriately. Tolerating PO intake. No nausea/vomiting. Abdomen is soft. c/o constipation, she thinks it has beenabout 4 days since last BM and stool at that time was hardened and BM minimal. Received Senekot this AM. Respirations are unlabored and even. Regular heart rate and rhythm. Lungs are clear. Weight Dosing Weight: 98.7 kg (07/13/22) Dosing Weight: 98.7 kg (07/11/22) Medications Medications (19) Active Scheduled: (12) atorvastatin 10 mg tablet 10 mg 1 tab(s), Oral, qHS ceFAZolin 1 gram(s) 10 mL, Topical (INT), PREOP pharm cefTRIAXone IVP syringe 2 gram(s) 20 mL, IV Push (INT), qDay docusate-senna (Senokot S) 50 mg-8.6 mg Tablet 1 tab(s), Oral, BID gabapentin 300 mg Capsule 300 mg 1 cap(s), Oral, TID heparin 5,000 units/mL (1 mL) vial 5,000 unit(s) 1 mL, Subcutaneous, q8h insulin lispro 100 units/mL Soln (3 mL) Give 0-10 units/dose, Subcutaneous, TIDAC losartan 50 mg tablet 50 mg 1 tab(s), Oral, qDay metoprolol succinate 50 mg ER tablet 50 mg 1 tab(s), Oral, qDayM nystatin powder 100,000 units/g 15 Gram(s) 1 marcy, Topical, AsDirected pantoprazole 40 mg EC tablet 40 mg 1 tab(s), Oral, qDayAC polyethylene glycol 3350 - UD packet 17 gram(s) 15 mL, Oral, qDay Continuous: (0) PRN: (7) acetaminophen 325 mg Tablet 650 mg 2 tab(s), Oral, q6hr docusate sodium 100 mg Capsule 100 mg 1 cap(s), Oral, BID HYDROmorphone 0.5 mg/0.5 mL PF syringe 0.5 mg 0.5 mL, IV Push, q4h ondansetron 2 mg/ 1 mL 2 mL INJ 4 mg 2 mL, IV Push, q4h oxycodone 5 mg tablet (immediate release) 5 mg 1 tab(s), Oral, q6hr polyethylene glycol 3350 - UD packet 17 gram(s) 15 mL, Oral, qDay prochlorperazine 10 mg/2 mL vial 5 mg 1 mL, IV Push, q4h Lab Results 07/18 07:19 WBC: 6.3 Hgb: 8.8 L Hct: 26.3 L Platelet: 112 L Neutrophil %: 76.8 H / 06:12 Glucose Level: 130 H Sodium Level: 147 H Potassium Level: 3.4 L BUN: 16.0 Creatinine Lvl (s): 0.55 /03 07:05 WBC: 7.0 Hgb: 8.6 L Hct: 26.0 L Platelet: 121 L Neutrophil %: 77.0 H Glucose Level: 121 H Sodium Level: 147 H Potassium Level: 3.6 BUN: 23.0 H Creatinine Lvl (s): 0.58 EKG No qualifying data available. C6-7 distraction injury with bilateral pedicle fractures s/p Fall S/P C2-C7 decompressive laminectomy, C2-T2 posterior bone screw/merari fixation and fusion POD #4 No acute events overnight. Remains compliant with Shalini brace. Is to wear brace at all times. Has been getting out of bed daily, prefers to be up in chair. Thigh and calf measurements q shift, bedside RN reported increase yesterday in right thigh and bilateral calf circumferences. Venous doppler U/S ordered and awaiting completion of this test. Per Dr Michaud, now that patient is day 5 post-op, she is cleared to begin chemical DVT prophylaxis, ie heparin SQ injections. Per Dr Michaud, may discontinue HASMUKH drain #2 today. Keep HASMUKH drain #[address] HASMUKH Continue prophylactic antibiotics with drain intact. PT/OT evaluations completed, have provided recommendations for skilled rehab. [facility] to assist with discharge planning. ICU team following for medical and pulmonary management; appreciate their support and assistance incare of patient. Please refer to Dr. Mccallum's addendum for further details. [1] VL Venous US/Doppler Both Legs(for DVT); 07/18/2022 11:00 EDT Digitally Signed by PELON RUIZ on 07/18/2022 04:44 PM [id number] Note Date of Service 07/18/2022 Split/shared visit with Dr Michaud Neurosurgery CC: C6-7 distraction injury with bilateral pedicle fractures s/p Fall S/P C2-C7 decompressive laminectomy, C2-T2 posterior bone screw/merari fixation and fusion Patient is POD #5 from above surgery. Successfully extubated on POD #2, 07/15/2022. Has remained in the surgical intensive care unit postoperatively. Today, she is laying in bed, planning to get OOB this morning for breakfast. Staff at bedside to assist with this. Remains in Shalini brace. She has been compliant with use of this brace. Has some residual numbness in her left thumb, but states this is improved from prior to surgery. Denies any newnumbness or tingling post-op. Yesterday there was concern that measurements of right thigh, and bilateral LE calves has increased. Has chronic left calf pain x couple yrs per patient. Homans' sign is negative bilaterally. Orderedfor doppler U/S to assess for DVTs of bilateral LEs; this has not yet been performed. Patient prefers to be OOB, and up in chair. Has SCDs on bilaterally now, and while in bed. HASMUKH Drain output overnight/ last 8 hrs: Drain #1= 30mL Drain #2= 5mL Objective Vitals and Measurements T: 37.0 C (Oral) HR: 103(Monitored) RR: 19 BP: 138/68 SpO2: 95% Intake and Output 7AM Yesterday to 7AM Today Intake and Output (Last 24 hours) Intake Oral Intake 300.00 Output Surgical Drain, Tube Output: 100.00 Urine Voided 350.00 Urinary Catheter Output: 1150.00 Stool Count 3.00 Urine Count 3.00 Total Summary Total Intake 300.00 Total Output 1600.00 Fluid Balance -1300.00 Physical Exam Awake and alert. Oriented appropriately. Tolerating PO intake. No nausea/vomiting. Abdomen is soft. c/o constipation, she thinks it has beenabout 4 days since last BM and stool at that time was hardened and BM minimal. Received Senekot this AM. Respirations are unlabored and even. Regular heart rate and rhythm. Lungs are clear. Weight Dosing Weight: 98.7 kg (07/13/22) Dosing Weight: 98.7 kg (07/11/22) Medications Medications (19) Active Scheduled: (12) atorvastatin 10 mg tablet 10 mg 1 tab(s), Oral, qHS ceFAZolin 1 gram(s) 10 mL, Topical (INT), PREOP pharm cefTRIAXone IVP syringe 2 gram(s) 20 mL, IV Push (INT), qDay docusate-senna (Senokot S) 50 mg-8.6 mg Tablet 1 tab(s), Oral, BID gabapentin 300 mg Capsule 300 mg 1 cap(s), Oral, TID heparin 5,000 units/mL (1 mL) vial 5,000 unit(s) 1 mL, Subcutaneous, q8h insulin lispro 100 units/mL Soln (3 mL) Give 0-10 units/dose, Subcutaneous, TIDAC losartan 50 mg tablet 50 mg 1 tab(s), Oral, qDay metoprolol succinate 50 mg ER tablet 50 mg 1 tab(s), Oral, qDayM nystatin powder 100,000 units/g 15 Gram(s) 1 marcy, Topical, AsDirected pantoprazole 40 mg EC tablet 40 mg 1 tab(s), Oral, qDayAC polyethylene glycol 3350 - UD packet 17 gram(s) 15 mL, Oral, qDay Continuous: (0) PRN: (7) acetaminophen 325 mg Tablet 650 mg 2 tab(s), Oral, q6hr docusate sodium 100 mg Capsule 100 mg 1 cap(s), Oral, BID HYDROmorphone 0.5 mg/0.5 mL PF syringe 0.5 mg 0.5 mL, IV Push, q4h ondansetron 2 mg/ 1 mL 2 mL INJ 4 mg 2 mL, IV Push, q4h oxycodone 5 mg tablet (immediate release) 5 mg 1 tab(s), Oral, q6hr polyethylene glycol 3350 - UD packet 17 gram(s) 15 mL, Oral, qDay prochlorperazine 10 mg/2 mL vial 5 mg 1 mL, IV Push, q4h Lab Results 07/18 07:19 WBC: 6.3 Hgb: 8.8 L Hct: 26.3 L Platelet: 112 L Neutrophil %: 76.8 H 07/18 06:12 Glucose Level: 130 H Sodium Level: 147 H Potassium Level: 3.4 L BUN: 16.0 Creatinine Lvl (s): 0.55 07/17 07:05 WBC: 7.0 Hgb: 8.6 L Hct: 26.0 L Platelet: 121 L Neutrophil %: 77.0 H Glucose Level: 121 H Sodium Level: 147 H Potassium Level: 3.6 BUN: 23.0 H Creatinine Lvl (s): 0.58 EKG No qualifying data available. C6-7 distraction injury with bilateral pedicle fractures s/p Fall S/P C2-C7 decompressive laminectomy, C2-T2 posterior bone screw/merari fixation and fusion POD #4 No acute events overnight. Remains compliant with Shalini brace. Is to wear brace at all times. Has been getting out of bed daily, prefers to be up in chair. Thigh and calf measurements q shift, bedside RN reported increase yesterday in right thigh and bilateral calf circumferences. Venous doppler U/S ordered and awaiting completion of this test. Per Dr Michaud, now that patient is day 5 post-op, she is cleared to begin chemical DVT prophylaxis, ie heparin SQ injections. Per Dr Michaud, may discontinue HASMUKH drain #2 today. Keep HASMUKH drain #[address] HASMUKH Continue prophylactic antibiotics with drain intact. PT/OT evaluations completed, have provided recommendations for skilled rehab. [employer] HANDLER to assist with discharge planning. ICU team following for medical and pulmonary management; appreciate their support and assistance incare of patient. Please refer to Dr. Mccallum's addendum for further details. [1] VL Venous US/Doppler Both Legs(for DVT); 07/18/2022 11:00 EDT Digitally Signed by PELON RUIZ on 07/18/2022 04:44 PM [id number] Note Date of Service 07/18/2022 Split/shared visit with Dr Michaud Neurosurgery CC: C6-7 distraction injury with bilateral pedicle fractures s/p Fall S/P C2-C7 decompressive laminectomy, C2-T2 posterior bone screw/merari fixation and fusion Patient is POD #5 from above surgery. Successfully extubated on POD #2, 07/15/2022. Has remained in the surgical intensive care unit postoperatively. Today, she is laying in bed, planning to get OOB this morning for breakfast. Staff at bedside to assist with this. Remains in Shalini brace. She has been compliant with use of this brace. Has some residual numbness in her left thumb, but states this is improved from prior to surgery. Denies any newnumbness or tingling post-op. Yesterday there was concern that measurements of right thigh, and bilateral LE calves has increased. Has chronic left calf pain x couple yrs per patient. Homans' sign is negative bilaterally. Orderedfor doppler U/S to assess for DVTs of bilateral LEs; this has not yet been performed. Patient prefers to be OOB, and up in chair. Has SCDs on bilaterally now, and while in bed. HASMUKH Drain output overnight/ last 8 hrs: Drain #1= 30mL Drain #2= 5mL Objective Vitals and Measurements T: 37.0 C (Oral) HR: 103(Monitored) RR: 19 BP: 138/68 SpO2: 95% Intake and Output 7AM Yesterday to 7AM Today Intake and Output (Last 24 hours) Intake Oral Intake 300.00 Output Surgical Drain, Tube Output: 100.00 Urine Voided 350.00 Urinary Catheter Output: 1150.00 Stool Count 3.00 Urine Count 3.00 Total Summary Total Intake 300.00 Total Output 1600.00 Fluid Balance -1300.00 Physical Exam Awake and alert. Oriented appropriately. Tolerating PO intake. No nausea/vomiting. Abdomen is soft. c/o constipation, she thinks it has beenabout 4 days since last BM and stool at that time was hardened and BM minimal. Received Senekot this AM. Respirations are unlabored and even. Regular heart rate and rhythm. Lungs are clear. Weight Dosing Weight: 98.7 kg (07/13/22) Dosing Weight: 98.7 kg (07/11/22) Medications Medications (19) Active Scheduled: (12) atorvastatin 10 mg tablet 10 mg 1 tab(s), Oral, qHS ceFAZolin 1 gram(s) 10 mL, Topical (INT), PREOP pharm cefTRIAXone IVP syringe 2 gram(s) 20 mL, IV Push (INT), qDay docusate-senna (Senokot S) 50 mg-8.6 mg Tablet 1 tab(s), Oral, BID gabapentin 300 mg Capsule 300 mg 1 cap(s), Oral, TID heparin 5,000 units/mL (1 mL) vial 5,000 unit(s) 1 mL, Subcutaneous, q8h insulin lispro 100 units/mL Soln (3 mL) Give 0-10 units/dose, Subcutaneous, TIDAC losartan 50 mg tablet 50 mg 1 tab(s), Oral, qDay metoprolol succinate 50 mg ER tablet 50 mg 1 tab(s), Oral, qDayM nystatin powder 100,000 units/g 15 Gram(s) 1 marcy, Topical, AsDirected pantoprazole 40 mg EC tablet 40 mg 1 tab(s), Oral, qDayAC polyethylene glycol 3350 - UD packet 17 gram(s) 15 mL, Oral, qDay Continuous: (0) PRN: (7) acetaminophen 325 mg Tablet 650 mg 2 tab(s), Oral, q6hr docusate sodium 100 mg Capsule 100 mg 1 cap(s), Oral, BID HYDROmorphone 0.5 mg/0.5 mL PF syringe 0.5 mg 0.5 mL, IV Push, q4h ondansetron 2 mg/ 1 mL 2 mL INJ 4 mg 2 mL, IV Push, q4h oxycodone 5 mg tablet (immediate release) 5 mg 1 tab(s), Oral, q6hr polyethylene glycol 3350 - UD packet 17 gram(s) 15 mL, Oral, qDay prochlorperazine 10 mg/2 mL vial 5 mg 1 mL, IV Push, q4h Lab Results 07/18 07:19 WBC: 6.3 Hgb: 8.8 L Hct: 26.3 L Platelet: 112 L Neutrophil %: 76.8 H 09/04 06:12 Glucose Level: 130 H Sodium Level: 147 H Potassium Level: 3.4 L BUN: 16.0 Creatinine Lvl (s): 0.55 07/17 07:05 WBC: 7.0 Hgb: 8.6 L Hct: 26.0 L Platelet: 121 L Neutrophil %: 77.0 H Glucose Level: 121 H Sodium Level: 147 H Potassium Level: 3.6 BUN: 23.0 H Creatinine Lvl (s): 0.58 EKG No qualifying data available. C6-7 distraction injury with bilateral pedicle fractures s/p Fall S/P C2-C7 decompressive laminectomy, C2-T2 posterior bone screw/merari fixation and fusion POD #4 No acute events overnight. Remains compliant with Shalini brace. Is to wear brace at all times. Has been getting out of bed daily, prefers to be up in chair. Thigh and calf measurements q shift, bedside RN reported increase yesterday in right thigh and bilateral calf circumferences. Venous doppler U/S ordered and awaiting completion of this test. Per Dr Michaud, now that patient is day 5 post-op, she is cleared to begin chemical DVT prophylaxis, ie heparin SQ injections. Per Dr Michaud, may discontinue HASMUKH drain #2 today. Keep HASMUKH drain #[address] HASMUKH Continue prophylactic antibiotics with drain intact. PT/OT evaluations completed, have provided recommendations for skilled rehab. [employer] HAND[employer]ER to assist with discharge planning. ICU team following for medical and pulmonary management; appreciate their support and assistance incare of patient. Please refer to Dr. Mccallum's addendum for further details. [1] VL Venous US/Doppler Both Legs(for DVT); 07/18/2022 11:00 EDT Digitally Signed by PELON RUIZ on 07/18/2022 04:44 PM [id number] Note Date of Service 07/18/22 Subjective This is ICU day #8 for Poli, 71-year-old female past medical history hypertension, dyslipidemia, COPD, diabetes, obesity, GERD, venous insufficiency and chronic back pain with gait instability with baseline walker use who presented to the hospital status post mechanical fall. This resulted in C6-C7 fracture with cord compression of C2-C3. She is now postop her day #4 status post C2-C7 decompressive laminectomy with C2-T2 posterior bone, screw and merari fixation and fusion. She was able to be extubated on 07/15/2022. Currently on day #7 of Rocephin for treatment of E. coli UTI. Objective Vitals and Measurements T: 37.0 C (Oral) HR: 96(Apical) RR: 19 BP: 141/65 SpO2: 100% Intake and Output 7AM Yesterday to 7AM Today Intake and Output (Last 24 hours) Intake Output Surgical Drain, Tube Output: 92.50 Urine Voided 350.00 Urinary Catheter Output: 375.00 Stool Count 0.00 Urine Count 2.00 Total Summary Total Intake 0.00 Total Output 817.50 Fluid Balance -817.50 Physical Exam General-no acute distress, alert up to a chair HEENT-she does have some bruising on her face, in a c-collar Pulmonary-clear, no wheeze Cardiovascular-regular, no appreciable murmurs, gallops or rubs Abdomen-soft, nontender, bowel sounds positive Extremities-no cyanosis, clubbing or significant edema noted Neurologic-grossly nonfocal Weight Dosing Weight: 98.7 kg (07/13/22) Dosing Weight: 98.7 kg (07/11/22) Medications Medications (17) Active Scheduled: (10) atorvastatin 10 mg tablet 10 mg 1 tab(s), Oral, qHS ceFAZolin 1 gram(s) 10 mL, Topical (INT), PREOP pharm cefTRIAXone IVP syringe 2 gram(s) 20 mL, IV Push (INT), qDay docusate-senna (Senokot S) 50 mg-8.6 mg Tablet 1 tab(s), Oral, BID gabapentin 300 mg Capsule 300 mg 1 cap(s), Oral, TID insulin lispro 100 units/mL Soln (3 mL) Give 0-10 units/dose, Subcutaneous, TIDAC losartan 50 mg tablet 50 mg 1 tab(s), Oral, qDay metoprolol succinate 50 mg ER tablet 50 mg 1 tab(s), Oral, qDayM nystatin powder 100,000 units/g 15 Gram(s) 1 marcy, Topical, AsDirected pantoprazole 40 mg EC tablet 40 mg 1 tab(s), Oral, qDayAC Continuous: (0) PRN: (7) acetaminophen 325 mg Tablet 650 mg 2 tab(s), Oral, q6hr docusate sodium 100 mg Capsule 100 mg 1 cap(s), Oral, BID HYDROmorphone 0.5 mg/0.5 mL PF syringe 0.5 mg 0.5 mL, IV Push, q4h ondansetron 2 mg/ 1 mL 2 mL INJ 4 mg 2 mL, IV Push, q4h oxycodone 5 mg tablet (immediate release) 5 mg 1 tab(s), Oral, q6hr polyethylene glycol 3350 - UD packet 17 gram(s) 15 mL, Oral, qDay prochlorperazine 10 mg/2 mL vial 5 mg 1 mL, IV Push, q4h Lab Results 07/18 06:12 Glucose Level: 130 H Sodium Level: 147 H Potassium Level: 3.4 L BUN: 16.0 Creatinine Lvl (s): 0.55 07/17 07:05 WBC: 7.0 Hgb: 8.6 L Hct: 26.0 L Platelet: 121 L Neutrophil %: 77.0 H Glucose Level: 121 H Sodium Level: 147 H Potassium Level: 3.6 BUN: 23.0 H Creatinine Lvl (s): 0.58 EKG No qualifying data available. Assessment/Plan 1. Mechanical fall with CT 6 7 dislocation and unstable fracture, mild cord compression at C2-C3. S/p C2 to C7 decompressive laminectomy, C2 to T2 posterior bone screw/merari fixation with autograft/allograft fusion on July 13 2. Chronic respiratory failure requiring 2 L of oxygen at home, with severe restrictive defect on her pulmonary function test back in 2019, CAT scan of the chest reveals no evidence of interstitial lung disease. 3. Diabetes mellitus. 4. Chronic hypertension on beta-blockers and ARB. 5. Chronic back pain and unsteady gait for which patient uses a walker. 6. E. coli UTI Plan: 1. Respiratory status is stable 2. Continue losartan 50 mg daily and will switch to home dose of metoprolol 50 mg XL. Hold home dose of Lasix for now 3. SCDs for DVT prophylaxis and Protonix for GI prophylaxis. Heparin subcu for DVT prophylaxis onceokay by neurosurgery Dopplers ordered 4. Ceftriaxone for E. coli UTI for total of 7 days, to stop today 5. Glycemic protocol 6. Cefazolin for prophylaxis due to HASMKUH drain 7. Added bowel regimen 8. Activity/diet as tolerated Time Spent 20 minutes. Stable for transfer out of ICU from critical care standpoint Digitally Signed by KENY VARGAS MD on 07/18/2022 08:05 AM [facility] [id number] Note Date of Service 07/17/2022 Split/shared visit with Dr Michaud Neurosurgery CC: C6-7 distraction injury with bilateral pedicle fractures s/p Fall S/P C2-C7 decompressive laminectomy, C2-T2 posterior bone screw/merari fixation and fusion Patient is POD #4 from above procedure by Dr Michaud. She has has remained in the surgical intensive care unit postoperatively. Successfully extubated on POD #2, 07/15/2022 She is seen out of bed, sitting up in a chair. According to the nursing staff, patient prefers the chair over the bed, and has been sleeping in the chair. Remains in Shalini brace, which she has beencompliant with. Reports some numbness in her left thumb, but states this is improved from prior to surgery. She denies any other new numbness or tingling for me this morning. SCDs on bilaterally. Indicates she has some pain in her left calf, but this is not new, and has been ongoing chronicallyfor couple years. Homans' sign is negative bilaterally. Calf and thigh measurements every shift. This morning oncoming nurse indicates that there has been an increased of 3 cm measurement to the right thigh, now measuring 52 cm, and 2 cm increased of the left thigh (52 cm) and left calf (38 cm). HASMUKH Drain output over last 8 hrs: Drain #1 20/8hrs Drain #2 15/8hrs Vital signs reviewed. BP stable, no hypotension. Objective Vitals and Measurements T: 36.9 C (Oral) TMIN: 36.9 C (Oral) TMAX: 37.4 C (Oral) HR: 67(Monitored) RR: 16 BP: 121/50 SpO2:100% Intake and Output 7AM Yesterday to 7AM Today Intake and Output (Last 24 hours) Intake Administration Information 1800.00 Oral Intake 1170.00 Output Surgical Drain, Tube Output: 105.00 Urine Voided 550.00 Stool Count 1.00 Urine Count 3.00 Total Summary Total Intake 2970.00 Total Output 655.00 Fluid Balance 2315.00 Physical Exam Patient is examined out of bed, sitting up in a chair. She is seen fully awake and alert. Oriented appropriately. Answers questions well. Moves all 4 extremities well. Hand grasp, and upper extremity strength is intact and equal, strong bilaterally. Also has strong equal dorsi and plantar flexion bilaterally. Homans' sign is negative bilaterally. Posterior cervical dressing is dry and intact. Silver alginate dressing present over site. HASMUKH drains intact. Bulbs are compressed. Shalini brace in place, well fitting. Patient denies nausea or vomiting. States she is tolerating p.o. intake without issues. Reports some constipation, and states it has been several days since she has had a bowel movement. Denies abdominal bloating or distention. Abdomen is soft. Bowel sounds present x4. No abdominal distention or tenderness with palpation. Lungs are clear bilaterally. Respirations even and unlabored. Regular heart rate and rhythm. S1-S2 present. Weight Dosing Weight: 98.7 kg (07/13/22) Dosing Weight: 98.7 kg (07/11/22) Medications Medications (17) Active Scheduled: (9) atorvastatin 10 mg tablet 10 mg 1 tab(s), Oral, qHS ceFAZolin 1 gram(s) 10 mL, Topical (INT), PREOP pharm cefTRIAXone IVP syringe 2 gram(s) 20 mL, IV Push (INT), qDay gabapentin 300 mg Capsule 300 mg 1 cap(s), Oral, TID insulin lispro 100 units/mL Soln (3 mL) Give 0-10 units/dose, Subcutaneous, TIDAC losartan 50 mg tablet 50 mg 1 tab(s), Oral, qDay metoprolol succinate 50 mg ER tablet 50 mg 1 tab(s), Oral, qDayM nystatin powder 100,000 units/g 15 Gram(s) 1 marcy, Topical, AsDirected pantoprazole 40 mg EC tablet 40 mg 1 tab(s), Oral, qDayAC Continuous: (1) NS (0.9% nacl) 1,000 mL 1,000 mL, Intravenous, 75 mL/hr PRN: (7) acetaminophen 325 mg Tablet 650 mg 2 tab(s), Oral, q6hr docusate sodium 100 mg Capsule 100 mg 1 cap(s), Oral, BID HYDROmorphone 0.5 mg/0.5 mL PF syringe 0.5 mg 0.5 mL, IV Push, q4h ondansetron 2 mg/ 1 mL 2 mL INJ 4 mg 2 mL, IV Push, q4h oxycodone 5 mg tablet (immediate release) 5 mg 1 tab(s), Oral, q6hr polyethylene glycol 3350 - UD packet 17 gram(s) 15 mL, Oral, qDay prochlorperazine 10 mg/2 mL vial 5 mg 1 mL, IV Push, q4h Lab Results 07/16 16:16 WBC: 7.0 Hgb: 8.3 L Hct: 25.4 L Platelet: 117 L Neutrophil %: 87.8 H Glucose Level: 171 H Sodium Level: 148 H Potassium Level: 3.6 BUN: 25.0 H Creatinine Lvl (s): 0.58 EKG No qualifying data available. Assessment/Plan C6-7 distraction injury with bilateral pedicle fractures s/p Fall S/P C2-C7 decompressive laminectomy, C2-T2 posterior bone screw/merari fixation and fusion POD #4 Patient continues to do well overall postoperatively. She has no new neuro complaints or deficits. Prefers to be out of bed and up in chair, as this is more comfortable for her. She has been sleeping upright in chair with Shalini brace on. Must continue to remain in Shalini brace at all times. Patient has been compliant with these instructions. HASMUKH drains to be maintained. Continue prophylactic antibiotics with drains remain intact. PT/OT evaluations completed, have provided recommendations for skilled rehab. Social service is following, and assisting with discharge planning. Per nursing staff, increased bilateral thigh and left calf measurements this morning. Will obtain ultrasound Dopplers of lower extremities for assessment of possible DVT/SVT. [employer] following for medical and pulmonary management; appreciate their support and assistancein care of patient. Please refer to Dr. Mccallum's addendum for further details. Dr Michaud like patient to remain in ICU until Doppler ultrasounds have been completed. Further instructions will be provided at that time. Digitally Signed by PELON RUIZ on 07/17/2022 11:16 AM [id number] Note Date of Service 07/17/22 Subjective This is ICU day #7 for Poli, 71-year-old female past medical history hypertension, dyslipidemia, COPD, diabetes, obesity, GERD, venous insufficiency and chronic back pain with gait instability with baseline walker use who presented to the hospital status post mechanical fall. This resulted in C6-C7 fracture with cord compression of C2-C3. She is now postop her day #4 status post C2-C7 decompressive laminectomy with C2-T2 posterior bone, screw and merari fixation and fusion. She was able to be extubated on 07/15/2022. She is doing well up to a chair on day #6 of Rocephin for treatment of E. coli UTI. Objective Vitals and Measurements T: 36.6 C (Oral) TMIN: 36.6 C (Oral) TMAX: 37.4 C (Oral) HR: 86(Monitored) RR: 18 BP: 138/64 SpO2: 100% Intake and Output 7AM Yesterday to 7AM Today Intake and Output (Last 24 hours) Intake Administration Information 1800.00 Oral Intake 1170.00 Output Surgical Drain, Tube Output: 105.00 Urine Voided 550.00 Stool Count 1.00 Urine Count 3.00 Total Summary Total Intake 2970.00 Total Output 655.00 Fluid Balance 2315.00 Physical Exam General-no acute distress, alert up to a chair HEENT-she does have some bruising on her face, in a c-collar Pulmonary-clear, no wheeze Cardiovascular-regular, no appreciable murmurs, gallops or rubs Abdomen-soft, nontender, bowel sounds positive Extremities-no cyanosis, clubbing or significant edema noted Neurologic-grossly nonfocal Weight Dosing Weight: 98.7 kg (07/13/22) Dosing Weight: 98.7 kg (07/11/22) Medications Medications (17) Active Scheduled: (9) atorvastatin 10 mg tablet 10 mg 1 tab(s), Oral, qHS ceFAZolin 1 gram(s) 10 mL, Topical (INT), PREOP pharm cefTRIAXone IVP syringe 2 gram(s) 20 mL, IV Push (INT), qDay gabapentin 300 mg Capsule 300 mg 1 cap(s), Oral, TID insulin lispro 100 units/mL Soln (3 mL) Give 0-10 units/dose, Subcutaneous, TIDAC losartan 50 mg tablet 50 mg 1 tab(s), Oral, qDay metoprolol succinate 50 mg ER tablet 50 mg 1 tab(s), Oral, qDayM nystatin powder 100,000 units/g 15 Gram(s) 1 macry, Topical, AsDirected pantoprazole 40 mg EC tablet 40 mg 1 tab(s), Oral, qDayAC Continuous: (1) NS (0.9% nacl) 1,000 mL 1,000 mL, Intravenous, 75 mL/hr PRN: (7) acetaminophen 325 mg Tablet 650 mg 2 tab(s), Oral, q6hr docusate sodium 100 mg Capsule 100 mg 1 cap(s), Oral, BID HYDROmorphone 0.5 mg/0.5 mL PF syringe 0.5 mg 0.5 mL, IV Push, q4h ondansetron 2 mg/ 1 mL 2 mL INJ 4 mg 2 mL, IV Push, q4h oxycodone 5 mg tablet (immediate release) 5 mg 1 tab(s), Oral, q6hr polyethylene glycol 3350 - UD packet 17 gram(s) 15 mL, Oral, qDay prochlorperazine 10 mg/2 mL vial 5 mg 1 mL, IV Push, q4h Lab Results 07/17 07:05 WBC: 7.0 Hgb: 8.6 L Hct: 26.0 L Platelet: 121 L Neutrophil %: 77.0 H Glucose Level: 121 H Sodium Level: 147 H Potassium Level: 3.6 BUN: 23.0 H Creatinine Lvl (s): 0.58 07/16 16:16 WBC: 7.0 Hgb: 8.3 L Hct: 25.4 L Platelet: 117 L Neutrophil %: 87.8 H Glucose Level: 171 H Sodium Level: 148 H Potassium Level: 3.6 BUN: 25.0 H Creatinine Lvl (s): 0.58 EKG No qualifying data available. Assessment/Plan 1. Mechanical fall with CT 6 7 dislocation and unstable fracture, mild cord compression at C2-C3. S/p C2 to C7 decompressive laminectomy, C2 to T2 posterior bone screw/merari fixation with autograft/allograft fusion on July 13 2. Chronic respiratory failure requiring 2 L of oxygen at home, with severe restrictive defect on her pulmonary function test back in 2019, CAT scan of the chest reveals no evidence of interstitial lung disease. 3. Diabetes mellitus. 4. Chronic hypertension on beta-blockers and ARB. 5. Chronic back pain and unsteady gait for which patient uses a walker. 6. E. coli UTI Plan: 1. Respiratory status is stable 2. Continue losartan 50 mg daily and will switch to home dose of metoprolol 50 mg XL from tomorrow.Hold home dose of Lasix for now 3. SCDs for DVT prophylaxis and Protonix for GI prophylaxis. Heparin subcu for DVT prophylaxis onceokay by neurosurgery 4. Ceftriaxone for E. coli UTI for total of 7 days 5. Glycemic protocol 6. Cefazolin for prophylaxis due to HASMUKH drain 7. Add bowel regimen 8. Activity/diet as tolerated Time Spent 20 minutes. Stable for transfer out of ICU from critical care standpoint Digitally Signed by KENY VARGAS MD on 07/17/2022 08:39 AM [id number] Note Date of Service 07/17/2022 Split/shared visit with Dr Michaud Neurosurgery CC: C6-7 distraction injury with bilateral pedicle fractures s/p Fall S/P C2-C7 decompressive laminectomy, C2-T2 posterior bone screw/merari fixation and fusion Patient is POD #4 from above procedure by Dr Michaud. She has has remained in the surgical intensive care unit postoperatively. Successfully extubated on POD #2, 07/15/2022 She is seen out of bed, sitting up in a chair. According to the nursing staff, patient prefers the chair over the bed, and has been sleeping in the chair. Remains in Shalini brace, which she has beencompliant with. Reports some numbness in her left thumb, but states this is improved from prior to surgery. She denies any other new numbness or tingling for me this morning. SCDs on bilaterally. Indicates she has some pain in her left calf, but this is not new, and has been ongoing chronicallyfor couple years. Homans' sign is negative bilaterally. Calf and thigh measurements every shift. This morning oncoming nurse indicates that there has been an increased of 3 cm measurement to the right thigh, now measuring 52 cm, and 2 cm increased of the left thigh (52 cm) and left calf (38 cm). HASMUKH Drain output over last 8 hrs: Drain #1 20/8hrs Drain #2 15/8hrs Vital signs reviewed. BP stable, no hypotension. Objective Vitals and Measurements T: 36.9 C (Oral) TMIN: 36.9 C (Oral) TMAX: 37.4 C (Oral) HR: 67(Monitored) RR: 16 BP: 121/50 SpO2: 100% Intake and Output 7AM Yesterday to 7AM Today Intake and Output (Last 24 hours) Intake Administration Information 1800.00 Oral Intake 1170.00 Output Surgical Drain, Tube Output: 105.00 Urine Voided 550.00 Stool Count 1.00 Urine Count 3.00 Total Summary Total Intake 2970.00 Total Output 655.00 Fluid Balance 2315.00 Physical Exam Patient is examined out of bed, sitting up in a chair. She is seen fully awake and alert. Oriented appropriately. Answers questions well. Moves all 4 extremities well. Hand grasp, and upper extremity strength is intact and equal, strong bilaterally. Also has strong equal dorsi and plantar flexion bilaterally. Homans' sign is negative bilaterally. Posterior cervical dressing is dry and intact. Silver alginate dressing present over site. HASMUKH drains intact. Bulbs are compressed. Shalini brace in place, well fitting. Patient denies nausea or vomiting. States she is tolerating p.o. intake without issues. Reports some constipation, and states it has been several days since she has had a bowel movement. Denies abdominal bloating or distention. Abdomen is soft. Bowel sounds present x4. No abdominal distention or tenderness with palpation. Lungs are clear bilaterally. Respirations even and unlabored. Regular heart rate and rhythm. S1-S2 present. Weight Dosing Weight: 98.7 kg (07/13/22) Dosing Weight: 98.7 kg (07/11/22) Medications Medications (17) Active Scheduled: (9) atorvastatin 10 mg tablet 10 mg 1 tab(s), Oral, qHS ceFAZolin 1 gram(s) 10 mL, Topical (INT), PREOP pharm cefTRIAXone IVP syringe 2 gram(s) 20 mL, IV Push (INT), qDay gabapentin 300 mg Capsule 300 mg 1 cap(s), Oral, TID insulin lispro 100 units/mL Soln (3 mL) Give 0-10 units/dose, Subcutaneous, TIDAC losartan 50 mg tablet 50 mg 1 tab(s), Oral, qDay metoprolol succinate 50 mg ER tablet 50 mg 1 tab(s), Oral, qDayM nystatin powder 100,000 units/g 15 Gram(s) 1 marcy, Topical, AsDirected pantoprazole 40 mg EC tablet 40 mg 1 tab(s), Oral, qDayAC Continuous: (1) NS (0.9% nacl) 1,000 mL 1,000 mL, Intravenous, 75 mL/hr PRN: (7) acetaminophen 325 mg Tablet 650 mg 2 tab(s), Oral, q6hr docusate sodium 100 mg Capsule 100 mg 1 cap(s), Oral, BID HYDROmorphone 0.5 mg/0.5 mL PF syringe 0.5 mg 0.5 mL, IV Push, q4h ondansetron 2 mg/ 1 mL 2 mL INJ 4 mg 2 mL, IV Push, q4h oxycodone 5 mg tablet (immediate release) 5 mg 1 tab(s), Oral, q6hr polyethylene glycol 3350 - UD packet 17 gram(s) 15 mL, Oral, qDay prochlorperazine 10 mg/2 mL vial 5 mg 1 mL, IV Push, q4h Lab Results 09/02 16:16 WBC: 7.0 Hgb: 8.3 L Hct: 25.4 L Platelet: 117 L Neutrophil %: 87.8 H Glucose Level: 171 H Sodium Level: 148 H Potassium Level: 3.6 BUN: 25.0 H Creatinine Lvl (s): 0.58 EKG No qualifying data available. Assessment/Plan C6-7 distraction injury with bilateral pedicle fractures s/p Fall S/P C2-C7 decompressive laminectomy, C2-T2 posterior bone screw/merari fixation and fusion POD #4 Patient continues to do well overall postoperatively. She has no new neuro complaints or deficits. Prefers to be out of bed and up in chair, as this is more comfortable for her. She has been sleeping upright in chair with Shalini brace on. Must continue to remain in Shalini brace at all times. Patient has been compliant with these instructions. HASMUKH drains to be maintained. Continue prophylactic antibiotics with drains remain intact. PT/OT evaluations completed, have provided recommendations for skilled rehab. Social service is following, and assisting with discharge planning. Per nursing staff, increased bilateral thigh and left calf measurements this morning. Will obtain ultrasound Dopplers of lower extremities for assessment of possible DVT/SVT. Poultry Farm Manager following for medical and pulmonary management; appreciate their support and assistancein care of patient. Please refer to Dr. Mccallum's addendum for further details. Dr Michaud like patient to remain in ICU until Doppler ultrasounds have been completed. Further instructions will be provided at that time. Digitally Signed by PELON RUIZ on 07/17/2022 11:16 AM [id number] Progress note Date of Service 07/16/2022 Chief Complaint S/P C2 to C7 decompressive laminectomy, C2 to T2 posterior bone screw/merari fixation (Infinity; Medtronic) with autograft/allograft (Infuse; Medtronic) fusion with navigation and intraoperative SSEP, MEP and EMG [id number] day #3. This is a 71-year-old female, who sustained an unstable C6-7 fracture/dislocation status post falling over her walker and landing on the left side of her body and face. She was evaluated in the [facility] emergency department, where she was found to have a distraction extension fracture at C6/7 with bilateral pedicle fractures. She was taken to surgery on 07/13/2022 for a C2-C7 decompressive laminectomy and C2-T2 posterior bone screw/merari fixation and fusion. She did have some facial swelling from her fall, and therefore remained intubated post-op. She was extubated on post-op day #2 (07/15/2022). On exam, she is awake and alert. Sitting up in chair. She actually slept in the chair last night, as she states she is more comfortable in the chair. She is able to move all 4 extremities strongly. She does complain of some numbness in her left thumb. Dorsiflexion and plantar flexion are strong. Hand grasps are strong. Posterior cervical dressing is dry and intact. She remains in a Shalini brace.She denies any other numbness or tingling. Marlon's sign negative. She states she has a little pain in her left calf, but this is chronic. She states she has had that pain for a couple of years. Calf and thigh measurements stable. She is voiding without difficulty. She has been eating and drinking well. PT/OT eval-recommend inpatient rehab. Drain output over last 8 hrs. Drain #1-15/8hrs 70cc/24hrs Drain #2-45/8hrs 85cc/24hrs Objective Vitals and Measurements T: 37.2 C (Oral) TMIN: 36.8 C (Oral) TMAX: 37.2 C (Oral) HR: 95(Monitored) RR: 16 BP: 134/66 SpO2: 98% Intake and Output 7AM Yesterday to 7AM Today Intake and Output (Last 24 hours) Intake Administration Information 1150.00 Oral Intake 450.00 Output Surgical Drain, Tube Output: 155.00 Urine Voided 170.00 Urinary Catheter Output: 100.00 Stool Count 0.00 Emesis Count 0.00 Total Summary Total Intake 1600.00 Total Output 425.00 Fluid Balance 1175.00 Physical Exam Weight Dosing Weight: 98.7 kg (07/13/22) Dosing Weight: 98.7 kg (07/11/22) Medications Medications (18) Active Scheduled: (10) atorvastatin 10 mg tablet 10 mg 1 tab(s), Oral, qHS ceFAZolin 1 gram(s) 10 mL, Topical (INT), PREOP pharm cefTRIAXone IVP syringe 2 gram(s) 20 mL, IV Push (INT), qDay gabapentin 300 mg Capsule 300 mg 1 cap(s), Oral, TID insulin lispro 100 units/mL Soln (3 mL) Give 0-10 units/dose, Subcutaneous, TIDAC losartan 50 mg tablet 50 mg 1 tab(s), Oral, qDay metoprolol succinate 50 mg ER tablet 50 mg 1 tab(s), Oral, qDayM metoprolol tartrate 25 mg tablet 25 mg 1 tab(s), Oral, BIDM nystatin powder 100,000 units/g 15 Gram(s) 1 marcy, Topical, AsDirected pantoprazole 40 mg EC tablet 40 mg 1 tab(s), Oral, qDayAC Continuous: (1) NS (0.9% nacl) 1,000 mL 1,000 mL, Intravenous, 75 mL/hr PRN: (7) acetaminophen 325 mg Tablet 650 mg 2 tab(s), Oral, q6hr docusate sodium 100 mg Capsule 100 mg 1 cap(s), Oral, BID HYDROmorphone 0.5 mg/0.5 mL PF syringe 0.5 mg 0.5 mL, IV Push, q4h ondansetron 2 mg/ 1 mL 2 mL INJ 4 mg 2 mL, IV Push, q4h oxycodone 5 mg tablet (immediate release) 5 mg 1 tab(s), Oral, q6hr polyethylene glycol 3350 - UD packet 17 gram(s) 15 mL, Oral, qDay prochlorperazine 10 mg/2 mL vial 5 mg 1 mL, IV Push, q4h Lab Results 07/15 04:10 WBC: 6.1 Hgb: 8.6 L Hct: 26.2 L Platelet: 99 L Neutrophil %: 87.8 H Glucose Level: 173 H Sodium Level: 143 Potassium Level: 3.5 BUN: 21.0 Creatinine Lvl (s): 0.52 EKG No qualifying data available. Assessment/Plan S/P C2 to C7 decompressive laminectomy, C2 to T2 posterior bone screw/merari fixation and fusion: -Overall, patient doing well postoperatively. -Sitting up in the chair. -PT/OT eval- recommends skilled rehab. Social service is following. -Will continue to monitor drain output. Keep drains inplace today. -Ancef while drain in place. -Shalini brace at all times. -Likely transfer to stepdown tomorrow. Dr. Michaud would prefer to wait 5 days post-op to start chemical DVT prophylaxis. Will obtain LE dopplars on Tuesday and then likely clear patient to start Heparin sq. -In meantime continue SCDS. -Continue measuring thigh and calf bilateral twice a day and if increases in size by 1cm neurosurgery to be notified to further evaluate. Poultry Farm Manager following for medical and pulmonary management. Time Spent 15 min Digitally Signed by ARYAN VAZ on 07/16/2022 12:12 PM [id number] Neurological surgery Progress note Date of Service 07/16/2022 Chief Complaint S/P C2 to C7 decompressive laminectomy, C2 to T2 posterior bone screw/merari fixation (Infinity; Medtronic) with autograft/allograft (Infuse; [employer]) fusion with navigation and intraoperative SSEP, MEP and EMG [id number] day #3. This is a 71-year-old female, who sustained an unstable C6-7 fracture/dislocation status post falling over her walker and landing on the left side of her body and face. She was evaluated in the [facility] emergency department, where she was found to have a distraction extension fracture at C6/7 with bilateral pedicle fractures. She was taken to surgery on 07/13/2022 for a C2-C7 decompressive laminectomy and C2-T2 posterior bone screw/merari fixation and fusion. She did have some facial swelling from her fall, and therefore remained intubated post-op. She was extubated on post-op day #2 (07/15/2022). On exam, she is awake and alert. Sitting up in chair. She actually slept in the chair last night, as she states she is more comfortable in the chair. She is able to move all 4 extremities strongly. She does complain of some numbness in her left thumb. Dorsiflexion and plantar flexion are strong. Hand grasps are strong. Posterior cervical dressing is dry and intact. She remains in a Shalini brace.She denies any other numbness or tingling. Marlon's sign negative. She states she has a little pain in her left calf, but this is chronic. She states she has had that pain for a couple of years. Calf and thigh measurements stable. She is voiding without difficulty. She has been eating and drinking well. PT/OT eval-recommend inpatient rehab. Drain output over last 8 hrs. Drain #1-15/8hrs 70cc/24hrs Drain #2-45/8hrs 85cc/24hrs Objective Vitals and Measurements T: 37.2 C (Oral) TMIN: 36.8 C (Oral) TMAX: 37.2 C (Oral) HR: 95(Monitored) RR: 16 BP: 134/66 SpO2: 98% Intake and Output 7AM Yesterday to 7AM Today Intake and Output (Last 24 hours) Intake Administration Information 1150.00 Oral Intake 450.00 Output Surgical Drain, Tube Output: 155.00 Urine Voided 170.00 Urinary Catheter Output: 100.00 Stool Count 0.00 Emesis Count 0.00 Total Summary Total Intake 1600.00 Total Output 425.00 Fluid Balance 1175.00 Physical Exam Weight Dosing Weight: 98.7 kg (07/13/22) Dosing Weight: 98.7 kg (07/11/22) Medications Medications (18) Active Scheduled: (10) atorvastatin 10 mg tablet 10 mg 1 tab(s), Oral, qHS ceFAZolin 1 gram(s) 10 mL, Topical (INT), PREOP pharm cefTRIAXone IVP syringe 2 gram(s) 20 mL, IV Push (INT), qDay gabapentin 300 mg Capsule 300 mg 1 cap(s), Oral, TID insulin lispro 100 units/mL Soln (3 mL) Give 0-10 units/dose, Subcutaneous, TIDAC losartan 50 mg tablet 50 mg 1 tab(s), Oral, qDay metoprolol succinate 50 mg ER tablet 50 mg 1 tab(s), Oral, qDayM metoprolol tartrate 25 mg tablet 25 mg 1 tab(s), Oral, BIDM nystatin powder 100,000 units/g 15 Gram(s) 1 marcy, Topical, AsDirected pantoprazole 40 mg EC tablet 40 mg 1 tab(s), Oral, qDayAC Continuous: (1) NS (0.9% nacl) 1,000 mL 1,000 mL, Intravenous, 75 mL/hr PRN: (7) acetaminophen 325 mg Tablet 650 mg 2 tab(s), Oral, q6hr docusate sodium 100 mg Capsule 100 mg 1 cap(s), Oral, BID HYDROmorphone 0.5 mg/0.5 mL PF syringe 0.5 mg 0.5 mL, IV Push, q4h ondansetron 2 mg/ 1 mL 2 mL INJ 4 mg 2 mL, IV Push, q4h oxycodone 5 mg tablet (immediate release) 5 mg 1 tab(s), Oral, q6hr polyethylene glycol 3350 - UD packet 17 gram(s) 15 mL, Oral, qDay prochlorperazine 10 mg/2 mL vial 5 mg 1 mL, IV Push, q4h Lab Results 07/15 04:10 WBC: 6.1 Hgb: 8.6 L Hct: 26.2 L Platelet: 99 L Neutrophil %: 87.8 H Glucose Level: 173 H Sodium Level: 143 Potassium Level: 3.5 BUN: 21.0 Creatinine Lvl (s): 0.52 EKG No qualifying data available. Assessment/Plan S/P C2 to C7 decompressive laminectomy, C2 to T2 posterior bone screw/merari fixation and fusion: -Overall, patient doing well postoperatively. -Sitting up in the chair. -PT/OT eval- recommends skilled rehab. Social service is following. -Will continue to monitor drain output. Keep drains inplace today. -Ancef while drain in place. -Shalini brace at all times. -Likely transfer to stepdown tomorrow. Dr. Michaud would prefer to wait 5 days post-op to start chemical DVT prophylaxis. Will obtain LE dopplars on Tuesday and then likely clear patient to start Heparin sq. -In meantime continue SCDS. -Continue measuring thigh and calf bilateral twice a day and if increases in size by 1cm neurosurgery to be notified to further evaluate. Poultry Farm Manager following for medical and pulmonary management. Time Spent 15 min Digitally Signed by ARYAN VAZ on 07/16/2022 12:12 PM [id number] Note Date of Service 07/16/2022 Chief Complaint 71 years old lady with known history of diabetes mellitus, hypertension, dyslipidemia and obesity, had abnormal PFTs in the past were finding are suggestive of restrictive lung disease with a total lung capacity of 45% of predicted, underwent CAT scan of the chest January 2021 which reveals no evidence of interstitial lung disease just some scarring in both lower lobes, patient also uses 2 L of oxygen chronically patient uses a walker due to her chronic back pain and an unsteady gait, unfortunately fell yesterday went to outside hospital where initially CAT scan of the neck was done which reveals evidence of C6-C7 fracture along with some stenosis at the level of C2C3 so that patient was transferred to [facility] where she was evaluated per neurosurgery Dr. Trace Matthews and cervical MRI was performed which reveals dislocation and unstable fracture of the C6-7 along with mild cord compression at the level of C2 and C3 so that Shalini brace was applied and the plan is OR sometimes today. This was a purely mechanical fall as patient felt with her walker, no syncope or presyncopal symptoms, patient has not had increasing shortness of breath or any resting or exercise-induced or walkinginduced chest pain for the few days prior to this incidence. And there has been no loss of consciousness. Patient quit cigarette smoking 20 years ago after she smoked for 10 to 15 years few cigarettes a day between 1-3 and no manifestation of COPD and her spirometry reveals no obstructive defect in the past. In addition patient had a 2D echo back in 2018 which reveals normal LV and RV size and functions. Subjective Patient was successfully extubated yesterday. Has done well. Currently sitting in chair comfortably. Objective Vitals and Measurements T: 37.2 C (Oral) TMIN: 36.5 C (Oral) TMAX: 37.2 C (Oral) HR: 103(Apical) RR: 16 BP: 136/70 BP: 106/45(Line) BP: 147/74(Supine) SpO2: 98% Intake and Output 7AM Yesterday to 7AM Today Intake and Output (Last 24 hours) Intake Administration Information 1150.00 Oral Intake 450.00 Output Surgical Drain, Tube Output: 155.00 Urine Voided 170.00 Urinary Catheter Output: 500.00 Stool Count 0.00 Emesis Count 0.00 Total Summary Total Intake 1600.00 Total Output 825.00 Fluid Balance 775.00 Physical Exam General: AAOx3, no distress Oral cavity: Moist Oral Mucosa Neck: No mass, cervical collar and Shalini device in place, HASMUKH drains in place CVS: RRR, No murmur, Normal S1S2, no LL edema Respiratory: Equal bilateral breath sounds, no wheezing, no crackles, no accessory muscle use Abdomen: Non-tender, no guarding, no rigidity Ext: Warm to touch Neuro: No focal deficits Weight Dosing Weight: 98.7 kg (07/13/22) Dosing Weight: 98.7 kg (07/11/22) Medications Medications (18) Active Scheduled: (10) atorvastatin 10 mg tablet 10 mg 1 tab(s), Oral, qHS ceFAZolin 1 gram(s) 10 mL, Topical (INT), PREOP pharm cefTRIAXone IVP syringe 2 gram(s) 20 mL, IV Push (INT), qDay gabapentin 300 mg Capsule 300 mg 1 cap(s), Oral, TID insulin lispro 100 units/mL Soln (3 mL) Give 0-10 units/dose, Subcutaneous, TIDAC losartan 50 mg tablet 50 mg 1 tab(s), Oral, qDay metoprolol succinate 50 mg ER tablet 50 mg 1 tab(s), Oral, qDayM metoprolol tartrate 25 mg tablet 25 mg 1 tab(s), Oral, BIDM nystatin powder 100,000 units/g 15 Gram(s) 1 marcy, Topical, AsDirected pantoprazole 40 mg EC tablet 40 mg 1 tab(s), Oral, qDayAC Continuous: (1) NS (0.9% nacl) 1,000 mL 1,000 mL, Intravenous, 75 mL/hr PRN: (7) acetaminophen 325 mg Tablet 650 mg 2 tab(s), Oral, q6hr docusate sodium 100 mg Capsule 100 mg 1 cap(s), Oral, BID HYDROmorphone 0.5 mg/0.5 mL PF syringe 0.5 mg 0.5 mL, IV Push, q4h ondansetron 2 mg/ 1 mL 2 mL INJ 4 mg 2 mL, IV Push, q4h oxycodone 5 mg tablet (immediate release) 5 mg 1 tab(s), Oral, q6hr polyethylene glycol 3350 - UD packet 17 gram(s) 15 mL, Oral, qDay prochlorperazine 10 mg/2 mL vial 5 mg 1 mL, IV Push, q4h Lab Results 07/15 04:10 WBC: 6.1 Hgb: 8.6 L Hct: 26.2 L Platelet: 99 L Neutrophil %: 87.8 H Glucose Level: 173 H Sodium Level: 143 Potassium Level: 3.5 BUN: 21.0 Creatinine Lvl (s): 0.52 EKG No qualifying data available. Assessment/Plan 1. Mechanical fall with CT 6 7 dislocation and unstable fracture, mild cord compression at C2-C3. S/p C2 to C7 decompressive laminectomy, C2 to T2 posterior bone screw/merari fixation with autograft/allograft fusion on July 13 2. Chronic respiratory failure requiring 2 L of oxygen at home, with severe restrictive defect on her pulmonary function test back in 2019, CAT scan of the chest reveals no evidence of interstitial lung disease. 3. Diabetes mellitus. 4. Chronic hypertension on beta-blockers and ARB. 5. Chronic back pain and unsteady gait for which patient uses a walker. 6. E. coli UTI Plan: 1. Respiratory status currently stable 2. Continue losartan 50 mg daily and will switch to home dose of metoprolol 50 mg XL from tomorrow.Hold home dose of Lasix for now 3. SCDs for DVT prophylaxis and Protonix for GI prophylaxis. Heparin subcu for DVT prophylaxis onceokay by neurosurgery 4. Ceftriaxone for E. coli UTI 5. Glycemic protocol 6. Cefazolin for prophylaxis due to HASMUKH drain Okay to transfer out of ICU from medical perspective Digitally Signed by ANNE-MARIE MCGRAW MD on 07/16/2022 09:57 AM [id number] Neurological surgery Progress note Date of Service 07/14/2022 Chief Complaint S/P C2 to C7 decompressive laminectomy, C2 to T2 posterior bone screw/merari fixation (Infinity; [employer]) with autograft/allograft (Infuse; [employer]) fusion with navigation and intraoperative SSEP, MEP and EMG [id number] day #1. This is a 71-year-old female, who sustained an unstable C6-7 fracture/dislocation status post falling over her walker and landing on the left side of her body and face. She was evaluated in the [facility] emergency department, where she was found to have a distraction extension fracture at C6/7 with bilateral pedicle fractures. [facility]. Shewas taken to surgery yesterday for a C2-C7 decompressive laminectomy and C2-T2 posterior bone screw/merari fixation and fusion. She does have facial swelling, and therefore remains intubated. Poultry Farm Manager plan to keep patient intubated today and on 24 hours of steroids. Will then consider extubating tomorrow. This morning, on exam, she remains intubated and mechanically ventilated. She is not on any continuous sedation, as she took a long time to awaken from anesthesia yesterday. She has been receiving fentanyl intermittently. She was just recently started on Precedex. She was examined prior to Precedexbeing started, and at that time she was moving her bilateral lower extremities to command. Dorsiflexing and plantar flexing her feet, bending bilateral legs at the knees, and was able to squeeze withher bilateral hands. She remains in a Shalini brace. She does open her eyes to voice and stimulation. Drain output over last 8 hrs. Drain #1-115 Drain #2- 0 Objective Vitals and Measurements T: 37.2 C (Oral) TMIN: 35.35 C TMAX: 37.2 C (Oral) HR: 117(Monitored) RR: 14 BP: 93/48 BP: 123/66(Line) SpO2: 96% HT: 165 cm WT: 98.7 kg BMI: 36.25 Intake and Output 7AM Yesterday to 7AM Today Intake and Output (Last 24 hours) Intake Administration Information 3965.89 Output Surgical Drain, Tube Output: 310.00 Urinary Catheter Output: 775.00 Intra-Op Urine Catheter 1300.00 Intra-Op EBL 300.00 Total Summary Total Intake 3965.89 Total Output 2685.00 Fluid Balance 1280.89 Physical Exam General Appearance: This patient is well-developed and well nourished, and appears stated age. No acute distress. Head: Normocephalic, Atraumatic EENT: Mucous membranes moist. Cardiac: S1 and S2 heard without murmur, rub, or gallop. Regular rate and rhythm. Lungs: Lungs clear. Respirations easy. No shortness of breath noted. Abdomen: BSP x 4. Abd soft, nontender, nondistended. Musculoskeletal: Shalini brace in place. Moves all 4 ext without difficulty. Extremities: Bilateral pedal pulses palpable. No edema noted Neurological: See HPI Skin: Oppelo, warm, and dry. Psychiatric: Mood stable. Cooperative. Weight Dosing Weight: 98.7 kg (07/13/22) Dosing Weight: 98.7 kg (07/11/22) Medications Medications (28) Active Scheduled: (13) acetaminophen PMX 1,000 mg 100 mL, IV Piggyback, q6hr atorvastatin 10 mg tablet 10 mg 1 tab(s), Oral, qHS ceFAZolin 1 gram(s) 10 mL, Topical (INT), PREOP pharm cefTRIAXone IVP syringe 2 gram(s) 20 mL, IV Push (INT), qDay chlorhexidine topical 0.12% Liquid (60 mL) 15 mL, Swish & Spit, QID gabapentin 300 mg Capsule 300 mg 1 cap(s), Oral, TID losartan 100 mg tablet 100 mg 1 tab(s), Oral, qDay methylPREDNISolone succ 40mg (40 mg/1mL) after dilution 60 mg 1.5 mL, IV Push, q8h metoprolol tartrate 25 mg tablet 25 mg 1 tab(s), Oral, BIDM nystatin powder 100,000 units/g 15 Gram(s) 1 marcy, Topical, AsDirected ocular lubricant - Ointment 3.5 gram(s) 1 marcy, Eyes, both, q8h ocular lubricant preserved Soln 15 mL 1 drop(s), Eyes, both, q8h pantoprazole 40 mg VIAL 40 mg, IV Push, qDayAC Continuous: (6) dexmedetomidine 400 mcg [0.2 mcg/kg/hr] + Sodium Chloride 0.9% 96 mL 96 mL, Intravenous, 4.94 mL/hr insulin regular 100 unit(s) + NS Premix Diluent 100 mL 100 mL, Intravenous nicardipine PMX 20 mg [2.5 mg/hr] + NS Premix Diluent 200 mL 200 mL, Intravenous, 25 mL/hr norepinephrine 8 mg [5 mcg/min] + NS Premix Diluent 250 mL 250 mL, Intravenous, 9.38 mL/hr NS (0.9% nacl) 1,000 mL 1,000 mL, Intravenous, 50 mL/hr NS (0.9% nacl) 1,000 mL 1,000 mL, Intravenous, 50 mL/hr PRN: (9) dextrose 50% Solution Disp syringe 50 mL 25 g 50 mL, IV Push, AsDirected docusate sodium 100 mg Capsule 100 mg 1 cap(s), Oral, BID fentaNYL 50 mcg/mL (2mL) ampule 25 mcg 0.5 mL, IV Push, q15min insulin regular human recombinant 100 units/mL (3 mL) Soln sliding scale insulin, Subcutaneous, q4h ocular lubricant - Ointment 3.5 gram(s) 1 marcy, Eyes, both, AsDirected ocular lubricant preserved Soln 15 mL 1 drop(s), Eyes, both, AsDirected ondansetron 2 mg/ 1 mL 2 mL INJ 4 mg 2 mL, IV Push, q4h polyethylene glycol 3350 - UD packet 17 gram(s) 15 mL, Oral, qDay prochlorperazine 10 mg/2 mL vial 5 mg 1 mL, IV Push, q4h Lab Results 07/14 04:17 WBC: 12.8 H Hgb: 9.8 L Hct: 29.8 L Platelet: 143 L Neutrophil %: 84.6 H Glucose Level: 191 H Sodium Level: 144 Potassium Level: 3.8 BUN: 19.0 Creatinine Lvl (s): 0.66 07/13 17:39 WBC: 7.5 Hgb: 10.6 L Hct: 32.1 L Platelet: 107 L Neutrophil %: 85.8 H Protime: 13.0 PT International Ratio: 1.1 Glucose Level: 160 H Sodium Level: 142 Potassium Level: 3.6 BUN: 17.0 Creatinine Lvl (s): 0.61 07/13 04:57 WBC: 8.0 Hgb: 11.0 L Hct: 34.3 Platelet: 118 L Neutrophil %: 82.2 H Glucose Level: 139 H Sodium Level: 143 Potassium Level: 3.9 BUN: 16.0 Creatinine Lvl (s): 0.66 Imaging Results and Diagnostics XR Enteric Tube Placement Result Date: July 14, 2022 Verified By: ALDO DEVINE MD CLINICAL STATEMENT: IMPRESSION: Appropriate positioning of the OG tube. XR Chest 1 View Result Date: July 14, 2022 Verified By: EDER CLARK MD CLINICAL STATEMENT: IMPRESSION: Grossly unchanged bibasilar infiltrates/atelectasis and small left pleuraleffusion. I have personally reviewed the images of this examination, and agree with theresident's findings and interpretation. CT Spine Cervical w/o Contrast Result Date: July 14, 2022 Verified By: EDER CLARK MD CLINICAL STATEMENT: IMPRESSION: Instrumented posterior fusion of C2 through T2 and laminectomy of C2 throughC6. Bilateral pedicle fracture of C6 with extension distraction fracture [id number] no change in alignment. XR Chest 1 View Result Date: July 13, 2022 Verified By: JARETH MAK MD CLINICAL STATEMENT: IMPRESSION: 1. Endotracheal tube terminating approximately 5.3 cm above the judith. 2. Interval placement surgical hardware throughout the cervical spine 3. Unchanged bibasilar reticular opacities favoring atelectasis withadditional airspace disease felt to be less likely however not excluded. 4. Unchanged small left pleural effusion. I have personally reviewed the images of this examination and agree with theresident's findings and interpretation. XR Spine Cervical Ap/Lat Result Date: July 13, 2022 Verified By: ROMINA STUBBS, RICHAR Mohan CLINICAL STATEMENT: IMPRESSION: Severely limited exam. A surgical sponge is not clearly identified. XR Fluoro 2 Hrs Tech Time Result Date: July 13, 2022 Verified By: EDER CLARK MD CLINICAL STATEMENT: IMPRESSION: Intraprocedural fluoroscopic spot images as above. See separate procedurereport for more information. XR Chest 1 View Result Date: July 12, 2022 Verified By: GRETCHEN TAYLOR MD CLINICAL STATEMENT: IMPRESSION: No significant change in the bibasilar atelectasis or other airspace diseaseand small left pleural effusion. XR Spine Cervical 1 View Result Date: July 12, 2022 Verified By: EDER CLARK MD CLINICAL STATEMENT: IMPRESSION: Nondiagnostic assessment of alignment of C6-C7 where known subluxation wasdemonstrated on prior CT scan. XR Spine Thoracic 1 View Result Date: July 11, 2022 Verified By: YOAV PALOMINO DO CLINICAL STATEMENT: IMPRESSION: Nearly nondiagnostic exam secondary to body habitus. No obvious compressionfracture or spondylolisthesis in the visualized spine. ATTENDING ADDENDUM: This exam is nondiagnostic to excludethoracic fracture or traumaticmalalignment, especially in the setting of known cervical spine fractu re.Exam is limited secondary to portable cross-table lateral technique. XR Spine Cervical 1 View Result Date: July 11, 2022 Verified By: YOAV PALOMINO DO CLINICAL STATEMENT: IMPRESSION: Limited exam secondary to inability to perform swimmer's view. Anterior discspace widening at C6-7 is again noted, however C7 is not well demonstratedand subluxation cannot be adequately assessed. I have reviewed the resident's preliminary report and agree with findings andimpression. MRI Spine Cervical w/o Contrast Result Date: July 11, 2022 Verified By: ROBERTA ROSARIO MD CLINICAL STATEMENT: IMPRESSION: Displaced and distracted C6-C7 fracture. There is stenosis at this level,but there is no definite cord compression and there is no abnormal signal inthe cord at this or any other level. 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 Milder degenerative changes at the remaining levels. Mild stenosis at C4-C5and C5-C6. Signal changes in the ishmael, likely small vessel ischemic disease. EKG No qualifying data available. Assessment/Plan S/P C2 to C7 decompressive laminectomy, C2 to T2 posterior bone screw/merari fixation and fusion: -Patient remains intubated. -She is following commands and moving all 4 ext. -Just started on Precedex d/t agitation/anxiety. -Will continue to monitor drain output. -Ancef while drain in place. -Will hopefully be extubated tomorrow and can start PT/OT. Poultry Farm Manager following for medical and pulmonary management. Time Spent 15 min Digitally Signed by ARYAN VAZ on 07/14/2022 11:59 AM [id number] Neurological [facility] Progress note Date of Service 07/15/2022 Chief Complaint S/P C2 to C7 decompressive laminectomy, C2 to T2 posterior bone screw/merari fixation (Infinity; Medtronic) with autograft/allograft (Infuse; [employer]) fusion with navigation and intraoperative SSEP, MEP and EMG [id number] day #2. This is a 71-year-old female, who sustained an unstable C6-7 fracture/dislocation status post falling over her walker and landing on the left side of her body and face. She was evaluated in the [facility] emergency department, where she was found to have a distraction extension fracture at C6/7 with bilateral pedicle fractures. She was taken to surgery on 07/13/2022 for a C2-C7 decompressive laminectomy and C2-T2 posterior bone screw/merari fixation and fusion. She did have some facial swelling from her fall, and therefore remained intubated after surgery and yesterday. She was able to be extubated this morning. On exam, she is awake and alert. Sitting up in chair. She is able to move all 4 extremities strongly. She does complain of some numbness in her left thumb. Dorsiflexion and plantar flexion are strong. Hand grasps are strong. Posterior cervical dressing is dry and intact. She remains in a Shalini brace. She denies any other numbness or tingling. Drain output over last 8 hrs. Drain #1-55 Drain #2-20 Objective Vitals and Measurements T: 36.5 C (Oral) TMIN: 36.5 C (Oral) TMAX: 36.8 C (Oral) HR: 89(Monitored) RR: 15 BP: 153/85(Line) SpO2: 97% Intake and Output 7AM Yesterday to 7AM Today Intake and Output (Last 24 hours) Intake Enteral Tube Flush: 60.00 Administration Information 1883.66 Output Surgical Drain, Tube Output: 190.00 Urinary Catheter Output: 1750.00 Stool Count 0.00 Emesis Count 0.00 Total Summary Total Intake 1943.66 Total Output 1940.00 Fluid Balance 3.66 Physical Exam Weight Dosing Weight: 98.7 kg (07/13/22) Dosing Weight: 98.7 kg (07/11/22) Medications Medications (19) Active Scheduled: (9) atorvastatin 10 mg tablet 10 mg 1 tab(s), Oral, qHS ceFAZolin 1 gram(s) 10 mL, Topical (INT), PREOP pharm cefTRIAXone IVP syringe 2 gram(s) 20 mL, IV Push (INT), qDay gabapentin 300 mg Capsule 300 mg 1 cap(s), Oral, TID losartan 50 mg tablet 50 mg 1 tab(s), Oral, qDay methylPREDNISolone succ 40mg (40 mg/1mL) after dilution 60 mg 1.5 mL, IV Push, q8h metoprolol tartrate 25 mg tablet 25 mg 1 tab(s), Oral, BIDM nystatin powder 100,000 units/g 15 Gram(s) 1 marcy, Topical, AsDirected pantoprazole 40 mg VIAL 40 mg, IV Push, qDayAC Continuous: (3) insulin regular 100 unit(s) + NS Premix Diluent 100 mL 100 mL, Intravenous NS (0.9% nacl) 1,000 mL 1,000 mL, Intravenous, 50 mL/hr NS (0.9% nacl) 1,000 mL 1,000 mL, Intravenous, 50 mL/hr PRN: (7) dextrose 50% Solution Disp syringe 50 mL 25 g 50 mL, IV Push, AsDirected docusate sodium 100 mg Capsule 100 mg 1 cap(s), Oral, BID HYDROmorphone 0.5 mg/0.5 mL PF syringe 0.5 mg 0.5 mL, IV Push, q4h insulin regular human recombinant 100 units/mL (3 mL) Soln sliding scale insulin, Subcutaneous, q4h ondansetron 2 mg/ 1 mL 2 mL INJ 4 mg 2 mL, IV Push, q4h polyethylene glycol 3350 - UD packet 17 gram(s) 15 mL, Oral, qDay prochlorperazine 10 mg/2 mL vial 5 mg 1 mL, IV Push, q4h Lab Results 07/15 04:10 WBC: 6.1 Hgb: 8.6 L Hct: 26.2 L Platelet: 99 L Neutrophil %: 87.8 H Glucose Level: 173 H Sodium Level: 143 Potassium Level: 3.5 BUN: 21.0 Creatinine Lvl (s): 0.52 07/14 04:17 WBC: 12.8 H Hgb: 9.8 L Hct: 29.8 L Platelet: 143 L Neutrophil %: 84.6 H Glucose Level: 191 H Sodium Level: 144 Potassium Level: 3.8 BUN: 19.0 Creatinine Lvl (s): 0.66 EKG No qualifying data available. Assessment/Plan S/P C2 to C7 decompressive laminectomy, C2 to T2 posterior bone screw/merari fixation and fusion: -Patient was extubated today. -She is following commands and moving all 4 ext. -Sitting up in the chair. -Will continue to monitor drain output. -Ancef while drain in place. -Start PT/OT with Shalini brace on. Dr. Michaud would prefer to wait 5 days post-op to start chemical DVT prophylaxis. She still has HASMUKH drains in place which are draining a fair amount. -In meantime continue SCDS. -Will have nursing measuring thigh and calf bilateral twice a day and if increases in size by 1cm neurosurgery to be notified to further evaluate. Poultry Farm Manager following for medical and pulmonary management. Time Spent 15 min Digitally Signed by ARYAN VAZ on 07/15/2022 01:20 PM [id number] Neurological surgery Progress note Date of Service 07/14/2022 Chief Complaint S/P C2 to C7 decompressive laminectomy, C2 to T2 posterior bone screw/merari fixation (Infinity; Medtronic) with autograft/allograft (Infuse; [employer]) fusion with navigation and intraoperative SSEP, MEP and EMG [id number] day #1. This is a 71-year-old female, who sustained an unstable C6-7 fracture/dislocation status post falling over her walker and landing on the left side of her body and face. She was evaluated in the [facility] emergency department, where she was found to have a distraction extension fracture at C6/7 with bilateral pedicle fractures. [facility]. Shewas taken to surgery yesterday for a C2-C7 decompressive laminectomy and C2-T2 posterior bone screw/merari fixation and fusion. She does have facial swelling, and therefore remains intubated. Poultry Farm Manager plan to keep patient intubated today and on 24 hours of steroids. Will then consider extubating tomorrow. This morning, on exam, she remains intubated and mechanically ventilated. She is not on any continuous sedation, as she took a long time to awaken from anesthesia yesterday. She has been receiving fentanyl intermittently. She was just recently started on Precedex. She was examined prior to Precedexbeing started, and at that time she was moving her bilateral lower extremities to command. Dorsiflexing and plantar flexing her feet, bending bilateral legs at the knees, and was able to squeeze withher bilateral hands. She remains in a Shalini brace. She does open her eyes to voice and stimulation. Drain output over last 8 hrs. Drain #1-115 Drain #2- 0 Objective Vitals and Measurements T: 37.2 C (Oral) TMIN: 35.35 C TMAX: 37.2 C (Oral) HR: 117(Monitored) RR: 14 BP: 93/48 BP: 123/66(Line) SpO2: 96% HT: 165 cm WT: 98.7 kg BMI: 36.25 Intake and Output 7AM Yesterday to 7AM Today Intake and Output (Last 24 hours) Intake Administration Information 3965.89 Output Surgical Drain, Tube Output: 310.00 Urinary Catheter Output: 775.00 Intra-Op Urine Catheter 1300.00 Intra-Op EBL 300.00 Total Summary Total Intake 3965.89 Total Output 2685.00 Fluid Balance 1280.89 Physical Exam General Appearance: This patient is well-developed and well nourished, and appears stated age. No acute distress. Head: Normocephalic, Atraumatic EENT: Mucous membranes moist. Cardiac: S1 and S2 heard without murmur, rub, or gallop. Regular rate and rhythm. Lungs: Lungs clear. Respirations easy. No shortness of breath noted. Abdomen: BSP x 4. Abd soft, nontender, nondistended. Musculoskeletal: Shalini brace in place. Moves all 4 ext without difficulty. Extremities: Bilateral pedal pulses palpable. No edema noted Neurological: See HPI Skin: Oppelo, warm, and dry. Psychiatric: Mood stable. Cooperative. Weight Dosing Weight: 98.7 kg (07/13/22) Dosing Weight: 98.7 kg (07/11/22) Medications Medications (28) Active Scheduled: (13) acetaminophen PMX 1,000 mg 100 mL, IV Piggyback, q6hr atorvastatin 10 mg tablet 10 mg 1 tab(s), Oral, qHS ceFAZolin 1 gram(s) 10 mL, Topical (INT), PREOP pharm cefTRIAXone IVP syringe 2 gram(s) 20 mL, IV Push (INT), qDay chlorhexidine topical 0.12% Liquid (60 mL) 15 mL, Swish & Spit, QID gabapentin 300 mg Capsule 300 mg 1 cap(s), Oral, TID losartan 100 mg tablet 100 mg 1 tab(s), Oral, qDay methylPREDNISolone succ 40mg (40 mg/1mL) after dilution 60 mg 1.5 mL, IV Push, q8h metoprolol tartrate 25 mg tablet 25 mg 1 tab(s), Oral, BIDM nystatin powder 100,000 units/g 15 Gram(s) 1 marcy, Topical, AsDirected ocular lubricant - Ointment 3.5 gram(s) 1 marcy, Eyes, both, q8h ocular lubricant preserved Soln 15 mL 1 drop(s), Eyes, both, q8h pantoprazole 40 mg VIAL 40 mg, IV Push, qDayAC Continuous: (6) dexmedetomidine 400 mcg [0.2 mcg/kg/hr] + Sodium Chloride 0.9% 96 mL 96 mL, Intravenous, 4.94 mL/hr insulin regular 100 unit(s) + NS Premix Diluent 100 mL 100 mL, Intravenous nicardipine PMX 20 mg [2.5 mg/hr] + NS Premix Diluent 200 mL 200 mL, Intravenous, 25 mL/hr norepinephrine 8 mg [5 mcg/min] + NS Premix Diluent 250 mL 250 mL, Intravenous, 9.38 mL/hr NS (0.9% nacl) 1,000 mL 1,000 mL, Intravenous, 50 mL/hr NS (0.9% nacl) 1,000 mL 1,000 mL, Intravenous, 50 mL/hr PRN: (9) dextrose 50% Solution Disp syringe 50 mL 25 g 50 mL, IV Push, AsDirected docusate sodium 100 mg Capsule 100 mg 1 cap(s), Oral, BID fentaNYL 50 mcg/mL (2mL) ampule 25 mcg 0.5 mL, IV Push, q15min insulin regular human recombinant 100 units/mL (3 mL) Soln sliding scale insulin, Subcutaneous, q4h ocular lubricant - Ointment 3.5 gram(s) 1 marcy, Eyes, both, AsDirected ocular lubricant preserved Soln 15 mL 1 drop(s), Eyes, both, AsDirected ondansetron 2 mg/ 1 mL 2 mL INJ 4 mg 2 mL, IV Push, q4h polyethylene glycol 3350 - UD packet 17 gram(s) 15 mL, Oral, qDay prochlorperazine 10 mg/2 mL vial 5 mg 1 mL, IV Push, q4h Lab Results 07/14 04:17 WBC: 12.8 H Hgb: 9.8 L Hct: 29.8 L Platelet: 143 L Neutrophil %: 84.6 H Glucose Level: 191 H Sodium Level: 144 Potassium Level: 3.8 BUN: 19.0 Creatinine Lvl (s): 0.66 07/13 17:39 WBC: 7.5 Hgb: 10.6 L Hct: 32.1 L Platelet: 107 L Neutrophil %: 85.8 H Protime: 13.0 PT International Ratio: 1.1 Glucose Level: 160 H Sodium Level: 142 Potassium Level: 3.6 BUN: 17.0 Creatinine Lvl (s): 0.61 07/13 04:57 WBC: 8.0 Hgb: 11.0 L Hct: 34.3 Platelet: 118 L Neutrophil %: 82.2 H Glucose Level: 139 H Sodium Level: 143 Potassium Level: 3.9 BUN: 16.0 Creatinine Lvl (s): 0.66 Imaging Results and Diagnostics XR Enteric Tube Placement Result Date: July 14, 2022 Verified By: ALDO DEVINE MD CLINICAL STATEMENT: IMPRESSION: Appropriate positioning of the OG tube. XR Chest 1 View Result Date: July 14, 2022 Verified By: EDER CLARK MD CLINICAL STATEMENT: IMPRESSION: Grossly unchanged bibasilar infiltrates/atelectasis and small left pleuraleffusion. I have personally reviewed the images of this examination, and agree with theresident's findings and interpretation. CT Spine Cervical w/o Contrast Result Date: July 14, 2022 Verified By: EDER CLARK MD CLINICAL STATEMENT: IMPRESSION: Instrumented posterior fusion of C2 through T2 and laminectomy of C2 throughC6. Bilateral pedicle fracture of C6 with extension distraction fracture [id number] no change in alignment. XR Chest 1 View Result Date: July 13, 2022 Verified By: JARETH MAK MD CLINICAL STATEMENT: IMPRESSION: 1. Endotracheal tube terminating approximately 5.3 cm above the judith. 2. Interval placement surgical hardware throughout the cervical spine 3. Unchanged bibasilar reticular opacities favoring atelectasis withadditional airspace disease felt to be less likely however not excluded. 4. Unchanged small left pleural effusion. I have personally reviewed the images of this examination and agree with theresident's findings and interpretation. XR Spine Cervical Ap/Lat Result Date: July 13, 2022 Verified By: RICHAR HASSAN MD CLINICAL STATEMENT: IMPRESSION: Severely limited exam. A surgical sponge is not clearly identified. XR Fluoro 2 Hrs Tech Time Result Date: July 13, 2022 Verified By: EDER CLARK MD CLINICAL STATEMENT: IMPRESSION: Intraprocedural fluoroscopic spot images as above. See separate procedurereport for more information. XR Chest 1 View Result Date: July 12, 2022 Verified By: GRETCHEN TAYLOR MD CLINICAL STATEMENT: IMPRESSION: No significant change in the bibasilar atelectasis or other airspace diseaseand small left pleural effusion. XR Spine Cervical 1 View Result Date: July 12, 2022 Verified By: EDER CLARK MD CLINICAL STATEMENT: IMPRESSION: Nondiagnostic assessment of alignment of C6-C7 where known subluxation wasdemonstrated on prior CT scan. XR Spine Thoracic 1 View Result Date: July 11, 2022 Verified By: YOAV PALOMINO DO CLINICAL STATEMENT: IMPRESSION: Nearly nondiagnostic exam secondary to body habitus. No obvious compressionfracture or spondylolisthesis in the visualized spine. ATTENDING ADDENDUM: This exam is nondiagnostic to excludethoracic fracture or traumaticmalalignment, especially in the setting of known cervical spine fractu re.Exam is limited secondary to portable cross-table lateral technique. XR Spine Cervical 1 View Result Date: July 11, 2022 Verified By: YOAV PALOMINO DO CLINICAL STATEMENT: IMPRESSION: Limited exam secondary to inability to perform swimmer's view. Anterior discspace widening at C6-7 is again noted, however C7 is not well demonstratedand subluxation cannot be adequately assessed. I have reviewed the resident's preliminary report and agree with findings andimpression. MRI Spine Cervical w/o Contrast Result Date: July 11, 2022 Verified By: ROBERTA ROSARIO MD CLINICAL STATEMENT: IMPRESSION: Displaced and distracted C6-C7 fracture. There is stenosis at this level,but there is no definite cord compression and there is no abnormal signal inthe cord at this or any other level. 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 Milder degenerative changes at the remaining levels. Mild stenosis at C4-C5and C5-C6. Signal changes in the ishmael, likely small vessel ischemic disease. EKG No qualifying data available. Assessment/Plan S/P C2 to C7 decompressive laminectomy, C2 to T2 posterior bone screw/merari fixation and fusion: -Patient remains intubated. -She is following commands and moving all 4 ext. -Just started on Precedex d/t agitation/anxiety. -Will continue to monitor drain output. -Ancef while drain in place. -Will hopefully be extubated tomorrow and can start PT/OT. Poultry Farm Manager following for medical and pulmonary management. Time Spent 15 min Digitally Signed by ARYAN VAZ on 07/14/2022 11:59 AM [id number] Neurological surgery Progress note Date of Service 07/15/2022 Chief Complaint S/P C2 to C7 decompressive laminectomy, C2 to T2 posterior bone screw/merari fixation (Infinity; [employer]) with autograft/allograft (Infuse; [employer]) fusion with navigation and intraoperative SSEP, MEP and EMG [id number] day #2. This is a 71-year-old female, who sustained an unstable C6-7 fracture/dislocation status post falling over her walker and landing on the left side of her body and face. She was evaluated in the [facility] emergency department, where she was found to have a distraction extension fracture at C6/7 with bilateral pedicle fractures. She was taken to surgery on 07/13/2022 for a C2-C7 decompressive laminectomy and C2-T2 posterior bone screw/merari fixation and fusion. She did have some facial swelling from her fall, and therefore remained intubated after surgery and yesterday. She was able to be extubated this morning. On exam, she is awake and alert. Sitting up in chair. She is able to move all 4 extremities strongly. She does complain of some numbness in her left thumb. Dorsiflexion and plantar flexion are strong. Hand grasps are strong. Posterior cervical dressing is dry and intact. She remains in a Shalini brace. She denies any other numbness or tingling. Drain output over last 8 hrs. Drain #1-55 Drain #2-20 Objective Vitals and Measurements T: 36.5 C (Oral) TMIN: 36.5 C (Oral) TMAX: 36.8 C (Oral) HR: 89(Monitored) RR: 15 BP: 153/85(Line) SpO2: 97% Intake and Output 7AM Yesterday to 7AM Today Intake and Output (Last 24 hours) Intake Enteral Tube Flush: 60.00 Administration Information 1883.66 Output Surgical Drain, Tube Output: 190.00 Urinary Catheter Output: 1750.00 Stool Count 0.00 Emesis Count 0.00 Total Summary Total Intake 1943.66 Total Output 1940.00 Fluid Balance 3.66 Physical Exam Weight Dosing Weight: 98.7 kg (07/13/22) Dosing Weight: 98.7 kg (07/11/22) Medications Medications (19) Active Scheduled: (9) atorvastatin 10 mg tablet 10 mg 1 tab(s), Oral, qHS ceFAZolin 1 gram(s) 10 mL, Topical (INT), PREOP pharm cefTRIAXone IVP syringe 2 gram(s) 20 mL, IV Push (INT), qDay gabapentin 300 mg Capsule 300 mg 1 cap(s), Oral, TID losartan 50 mg tablet 50 mg 1 tab(s), Oral, qDay methylPREDNISolone succ 40mg (40 mg/1mL) after dilution 60 mg 1.5 mL, IV Push, q8h metoprolol tartrate 25 mg tablet 25 mg 1 tab(s), Oral, BIDM nystatin powder 100,000 units/g 15 Gram(s) 1 marcy, Topical, AsDirected pantoprazole 40 mg VIAL 40 mg, IV Push, qDayAC Continuous: (3) insulin regular 100 unit(s) + NS Premix Diluent 100 mL 100 mL, Intravenous NS (0.9% nacl) 1,000 mL 1,000 mL, Intravenous, 50 mL/hr NS (0.9% nacl) 1,000 mL 1,000 mL, Intravenous, 50 mL/hr PRN: (7) dextrose 50% Solution Disp syringe 50 mL 25 g 50 mL, IV Push, AsDirected docusate sodium 100 mg Capsule 100 mg 1 cap(s), Oral, BID HYDROmorphone 0.5 mg/0.5 mL PF syringe 0.5 mg 0.5 mL, IV Push, q4h insulin regular human recombinant 100 units/mL (3 mL) Soln sliding scale insulin, Subcutaneous, q4h ondansetron 2 mg/ 1 mL 2 mL INJ 4 mg 2 mL, IV Push, q4h polyethylene glycol 3350 - UD packet 17 gram(s) 15 mL, Oral, qDay prochlorperazine 10 mg/2 mL vial 5 mg 1 mL, IV Push, q4h Lab Results 07/15 04:10 WBC: 6.1 Hgb: 8.6 L Hct: 26.2 L Platelet: 99 L Neutrophil %: 87.8 H Glucose Level: 173 H Sodium Level: 143 Potassium Level: 3.5 BUN: 21.0 Creatinine Lvl (s): 0.52 07/14 04:17 WBC: 12.8 H Hgb: 9.8 L Hct: 29.8 L Platelet: 143 L Neutrophil %: 84.6 H Glucose Level: 191 H Sodium Level: 144 Potassium Level: 3.8 BUN: 19.0 Creatinine Lvl (s): 0.66 EKG No qualifying data available. Assessment/Plan S/P C2 to C7 decompressive laminectomy, C2 to T2 posterior bone screw/merari fixation and fusion: -Patient was extubated today. -She is following commands and moving all 4 ext. -Sitting up in the chair. -Will continue to monitor drain output. -Ancef while drain in place. -Start PT/OT with Shalini brace on. Dr. Michaud would prefer to wait 5 days post-op to start chemical DVT prophylaxis. She still has HASMUKH drains in place which are draining a fair amount. -In meantime continue SCDS. -Will have nursing measuring thigh and calf bilateral twice a day and if increases in size by 1cm neurosurgery to be notified to further evaluate. Poultry Farm Manager following for medical and pulmonary management. Time Spent 15 min Digitally Signed by ARYAN VAZ on 07/15/2022 01:20 PM [id number] Note Date of Service 07/15/2022 Subjective 71 years old lady with known history of diabetes mellitus, hypertension, dyslipidemia and obesity, had abnormal PFTs in the past were finding are suggestive of restrictive lung disease with a total lung capacity of 45% of predicted, underwent CAT scan of the chest January 2021 which reveals no evidence of interstitial lung disease just some scarring in both lower lobes, patient also uses 2 L of oxygen chronically patient uses a walker due to her chronic back pain and an unsteady gait, unfortunately fell yesterday went to outside hospital where initially CAT scan of the neck was done which reveals evidence of C6-C7 fracture along with some stenosis at the level of C2C3 so that patient was transferred to [facility] where she was evaluated per neurosurgery Dr. Trace Matthews and cervical MRI was performed which reveals dislocation and unstable fracture of the C6-7 along with mild cord compression at the level of C2 and C3 so that Shalini brace was applied and the plan is OR sometimes today. This was a purely mechanical fall as patient felt with her walker, no syncope or presyncopal symptoms, patient has not had increasing shortness of breath or any resting or exercise-induced or walkinginduced chest pain for the few days prior to this incidence. And there has been no loss of consciousness . Last 24 hours and this morning: Once again day 2 status post extensive neck surgery C2-T2 with laminectomy and posterior fixation per Dr. Matthews, on mechanical ventilation, alert, follows command, excellent respite mechanics, and she did have significant leak upon deflation of the cuff with a tidal volume 650 cc briefly. Objective Vitals and Measurements T: 36.5 C (Oral) TMIN: 36.5 C (Oral) TMAX: 36.8 C (Oral) HR: 111(Monitored) RR: 15 BP: 177/97(Line)SpO2: 98% Physical Exam Skin: Warm and dry no obvious rash or ulcerations. HEENT: Endotracheal tube is in place Neck: Shalini device is in place Cardiovascular: Normal heart sounds, regular rhythm no murmurs. Chest and lung exam: Normal excursion with symmetric chest wall movement. Chest wall is nontender. Lungs are clear, breath sounds equal there is no rales or rhonchi's no wheezing. Abdomen: No obvious visible abnormalities, soft, nontender, no organomegaly, no rigidity or tenderness. Neurologic: Alert moves all 4 extremities, no focal motor deficits present. Musculoskeletal: No clubbing, cyanosis or edema Weight Dosing Weight: 98.7 kg (07/13/22) Dosing Weight: 98.7 kg (07/11/22) Medications Medications (27) Active Scheduled: (12) atorvastatin 10 mg tablet 10 mg 1 tab(s), Oral, qHS ceFAZolin 1 gram(s) 10 mL, Topical (INT), PREOP pharm cefTRIAXone IVP syringe 2 gram(s) 20 mL, IV Push (INT), qDay chlorhexidine topical 0.12% Liquid (60 mL) 15 mL, Swish & Spit, QID gabapentin 300 mg Capsule 300 mg 1 cap(s), Oral, TID losartan 50 mg tablet 50 mg 1 tab(s), Oral, qDay methylPREDNISolone succ 40mg (40 mg/1mL) after dilution 60 mg 1.5 mL, IV Push, q8h metoprolol tartrate 25 mg tablet 25 mg 1 tab(s), Oral, BIDM nystatin powder 100,000 units/g 15 Gram(s) 1 marcy, Topical, AsDirected ocular lubricant - Ointment 3.5 gram(s) 1 marcy, Eyes, both, q8h ocular lubricant preserved Soln 15 mL 1 drop(s), Eyes, both, q8h pantoprazole 40 mg VIAL 40 mg, IV Push, qDayAC Continuous: (6) dexmedetomidine 400 mcg [0.2 mcg/kg/hr] + Sodium Chloride 0.9% 96 mL 96 mL, Intravenous, 4.94 mL/hr insulin regular 100 unit(s) + NS Premix Diluent 100 mL 100 mL, Intravenous nicardipine PMX 20 mg [2.5 mg/hr] + NS Premix Diluent 200 mL 200 mL, Intravenous, 25 mL/hr norepinephrine 8 mg [5 mcg/min] + NS Premix Diluent 250 mL 250 mL, Intravenous, 9.38 mL/hr NS (0.9% nacl) 1,000 mL 1,000 mL, Intravenous, 50 mL/hr NS (0.9% nacl) 1,000 mL 1,000 mL, Intravenous, 50 mL/hr PRN: (9) dextrose 50% Solution Disp syringe 50 mL 25 g 50 mL, IV Push, AsDirected docusate sodium 100 mg Capsule 100 mg 1 cap(s), Oral, BID fentaNYL 50 mcg/mL (2mL) ampule 25 mcg 0.5 mL, IV Push, q15min insulin regular human recombinant 100 units/mL (3 mL) Soln sliding scale insulin, Subcutaneous, q4h ocular lubricant - Ointment 3.5 gram(s) 1 marcy, Eyes, both, AsDirected ocular lubricant preserved Soln 15 mL 1 drop(s), Eyes, both, AsDirected ondansetron 2 mg/ 1 mL 2 mL INJ 4 mg 2 mL, IV Push, q4h polyethylene glycol 3350 - UD packet 17 gram(s) 15 mL, Oral, qDay prochlorperazine 10 mg/2 mL vial 5 mg 1 mL, IV Push, q4h Lab Results 07/15 04:10 WBC: 6.1 Hgb: 8.6 L Hct: 26.2 L Platelet: 99 L Neutrophil %: 87.8 H Glucose Level: 173 H Sodium Level: 143 Potassium Level: 3.5 BUN: 21.0 Creatinine Lvl (s): 0.52 07/14 04:17 WBC: 12.8 H Hgb: 9.8 L Hct: 29.8 L Platelet: 143 L Neutrophil %: 84.6 H Glucose Level: 191 H Sodium Level: 144 Potassium Level: 3.8 BUN: 19.0 Creatinine Lvl (s): 0.66 EKG No qualifying data available. Assessment/Plan 1. Mechanical fall with CT 6 7 dislocation and unstable fracture, mild cord compression at C2-C3. 2. Chronic respiratory failure requiring 2 L of oxygen at home, with severe restrictive defect on her pulmonary function test back in 2019, CAT scan of the chest reveals no evidence of interstitial lung disease. 3. Diabetes mellitus. 4. Chronic hypertension on beta-blockers and ARB. 5. Chronic back pain and unsteady gait for which patient uses a walker . 6. Delayed extubation. Plan: 1. Extubate. 2. Continue metoprolol 25 mg p.o. twice daily along with losartan 100 mg daily for hypertension. Will stop Solu-Medrol today. 3. SCDs for DVT prophylaxis and Protonix for GI prophylaxis. 4. Reduce normal saline to 75 cc an hour, IV fluid will be stopped once oral intake is adequate, asa swallow testing will be performed upon extubation. 5. DC nicardipine. Will monitor blood pressure if needed will adjust the dose and the frequency of p.o. medications. 6. Remove arterial line and evaluate for possible removal of Barnes catheter. 7. Physical therapy service will also be consulted. 8. Lab data in the morning CBC and basic metabolic profile Time Spent Critical care medicine 30 minutes Digitally Signed by DARLING EDWARDS MD on 07/15/2022 08:56 AM [id number] Note ORIGINAL EXAMINATION: ONE XRAY VIEW OF THE CHEST07/15/2022 5:48 am COMPARISON: 07/14/2022 HISTORY: ORDERING SYSTEM PROVIDED HISTORY: Reason for Exam: hypoxia FINDINGS: Endotracheal tube distal tip is near the thoracic inlet. Enteric tube appears appropriately positioned. Cervical spine hardware is visualized. Lung volumes are low. The cardiomediastinal silhouette is unchanged. No visible pneumothorax or right pleural effusion. There is a small left pleural effusion with adjacent atelectasis. Infiltrate/atelectasis at the right lung base appears unchanged. No acute osseous findings. IMPRESSION: No significant interval change, with persistent bibasilar infiltrates/atelectasis and small left pleural effusion. I have personally reviewed the images of this examination, and agree with the resident's findings and interpretation. Interpreted by: Eder Clark MD Preliminary Report By: Mariana Lozano Electronically signed By Eder Clark MD Dictated Date: 07/15/2022 5:49:34 AM Prelim Date: 07/15/2022 5:52:26 AM Sign Date: 07/15/2022 6:01:36 AM Ordering Provider: [facility]09-01-2022 Note ORIGINAL EXAMINATION: ONE XRAY VIEW OF THE CHEST07/15/2022 5:48 am COMPARISON: 07/14/2022 HISTORY: ORDERING SYSTEM PROVIDED HISTORY: Reason for Exam: hypoxia FINDINGS: Endotracheal tube distal tip is near the thoracic inlet. Enteric tube appears appropriately positioned. Cervical spine hardware is visualized. Lung volumes are low. The cardiomediastinal silhouette is unchanged. No visible pneumothorax or right pleural effusion. There is a small left pleural effusion with adjacent atelectasis. Infiltrate/atelectasis at the right lung base appears unchanged. No acute osseous findings. IMPRESSION: No significant interval change, with persistent bibasilar infiltrates/atelectasis and small left pleural effusion. I have personally reviewed the images of this examination, and agree with the resident's findings and interpretation. Interpreted by: Eder Clark MD Preliminary Report By: Mariana Lozano Electronically signed By Eder Clark MD Dictated Date: 07/15/2022 5:49:34 AM Prelim Date: 07/15/2022 5:52:26 AM Sign Date: 07/15/2022 6:01:36 AM Ordering Provider: [facility]08-31-2022 Neurological surgery Progress note Date of Service 07/14/2022 Chief Complaint S/P C2 to C7 decompressive laminectomy, C2 to T2 posterior bone screw/merari fixation (Infinity; Med[employer]) with autograft/allograft (Infuse; [employer]) fusion with navigation and intraoperative SSEP, MEP and EMG [id number] day #1. This is a 71-year-old female, who sustained an unstable C6-7 fracture/dislocation status post falling over her walker and landing on the left side of her body and face. She was evaluated in the [facility] emergency department, where she was found to have a distraction extension fracture at C6/7 with bilateral pedicle fractures. She was transferred to [facility] for Neurosurgery evaluation. Shewas taken to surgery yesterday for a C2-C7 decompressive laminectomy and C2-T2 posterior bone screw/merari fixation and fusion. She does have facial swelling, and therefore remains intubated. Poultry Farm Manager plan to keep patient intubated today and on 24 hours of steroids. Will then consider extubating tomorrow. This morning, on exam, she remains intubated and mechanically ventilated. She is not on any continuous sedation, as she took a long time to awaken from anesthesia yesterday. She has been receiving fentanyl intermittently. She was just recently started on Precedex. She was examined prior to Precedexbeing started, and at that time she was moving her bilateral lower extremities to command. Dorsiflexing and plantar flexing her feet, bending bilateral legs at the knees, and was able to squeeze withher bilateral hands. She remains in a Shalini brace. She does open her eyes to voice and stimulation. Drain output over last 8 hrs. Drain #1-115 Drain #2- 0 Objective Vitals and Measurements T: 37.2 C (Oral) TMIN: 35.35 C TMAX: 37.2 C (Oral) HR: 117(Monitored) RR: 14 BP: 93/48 BP: 123/66(Line) SpO2: 96% HT: 165 cm WT: 98.7 kg BMI: 36.25 Intake and Output 7AM Yesterday to 7AM Today Intake and Output (Last 24 hours) Intake Administration Information 3965.89 Output Surgical Drain, Tube Output: 310.00 Urinary Catheter Output: 775.00 Intra-Op Urine Catheter 1300.00 Intra-Op EBL 300.00 Total Summary Total Intake 3965.89 Total Output 2685.00 Fluid Balance 1280.89 Physical Exam General Appearance: This patient is well-developed and well nourished, and appears stated age. No acute distress. Head: Normocephalic, Atraumatic EENT: Mucous membranes moist. Cardiac: S1 and S2 heard without murmur, rub, or gallop. Regular rate and rhythm. Lungs: Lungs clear. Respirations easy. No shortness of breath noted. Abdomen: BSP x 4. Abd soft, nontender, nondistended. Musculoskeletal: Shalini brace in place. Moves all 4 ext without difficulty. Extremities: Bilateral pedal pulses palpable. No edema noted Neurological: See HPI Skin: Oppelo, warm, and dry. Psychiatric: Mood stable. Cooperative. Weight Dosing Weight: 98.7 kg (07/13/22) Dosing Weight: 98.7 kg (07/11/22) Medications Medications (28) Active Scheduled: (13) acetaminophen PMX 1,000 mg 100 mL, IV Piggyback, q6hr atorvastatin 10 mg tablet 10 mg 1 tab(s), Oral, qHS ceFAZolin 1 gram(s) 10 mL, Topical (INT), PREOP pharm cefTRIAXone IVP syringe 2 gram(s) 20 mL, IV Push (INT), qDay chlorhexidine topical 0.12% Liquid (60 mL) 15 mL, Swish & Spit, QID gabapentin 300 mg Capsule 300 mg 1 cap(s), Oral, TID losartan 100 mg tablet 100 mg 1 tab(s), Oral, qDay methylPREDNISolone succ 40mg (40 mg/1mL) after dilution 60 mg 1.5 mL, IV Push, q8h metoprolol tartrate 25 mg tablet 25 mg 1 tab(s), Oral, BIDM nystatin powder 100,000 units/g 15 Gram(s) 1 marcy, Topical, AsDirected ocular lubricant - Ointment 3.5 gram(s) 1 marcy, Eyes, both, q8h ocular lubricant preserved Soln 15 mL 1 drop(s), Eyes, both, q8h pantoprazole 40 mg VIAL 40 mg, IV Push, qDayAC Continuous: (6) dexmedetomidine 400 mcg [0.2 mcg/kg/hr] + Sodium Chloride 0.9% 96 mL 96 mL, Intravenous, 4.94 mL/hr insulin regular 100 unit(s) + NS Premix Diluent 100 mL 100 mL, Intravenous nicardipine PMX 20 mg [2.5 mg/hr] + NS Premix Diluent 200 mL 200 mL, Intravenous, 25 mL/hr norepinephrine 8 mg [5 mcg/min] + NS Premix Diluent 250 mL 250 mL, Intravenous, 9.38 mL/hr NS (0.9% nacl) 1,000 mL 1,000 mL, Intravenous, 50 mL/hr NS (0.9% nacl) 1,000 mL 1,000 mL, Intravenous, 50 mL/hr PRN: (9) dextrose 50% Solution Disp syringe 50 mL 25 g 50 mL, IV Push, AsDirected docusate sodium 100 mg Capsule 100 mg 1 cap(s), Oral, BID fentaNYL 50 mcg/mL (2mL) ampule 25 mcg 0.5 mL, IV Push, q15min insulin regular human recombinant 100 units/mL (3 mL) Soln sliding scale insulin, Subcutaneous, q4h ocular lubricant - Ointment 3.5 gram(s) 1 marcy, Eyes, both, AsDirected ocular lubricant preserved Soln 15 mL 1 drop(s), Eyes, both, AsDirected ondansetron 2 mg/ 1 mL 2 mL INJ 4 mg 2 mL, IV Push, q4h polyethylene glycol 3350 - UD packet 17 gram(s) 15 mL, Oral, qDay prochlorperazine 10 mg/2 mL vial 5 mg 1 mL, IV Push, q4h Lab Results 07/14 04:17 WBC: 12.8 H Hgb: 9.8 L Hct: 29.8 L Platelet: 143 L Neutrophil %: 84.6 H Glucose Level: 191 H Sodium Level: 144 Potassium Level: 3.8 BUN: 19.0 Creatinine Lvl (s): 0.66 07/13 17:39 WBC: 7.5 Hgb: 10.6 L Hct: 32.1 L Platelet: 107 L Neutrophil %: 85.8 H Protime: 13.0 PT International Ratio: 1.1 Glucose Level: 160 H Sodium Level: 142 Potassium Level: 3.6 BUN: 17.0 Creatinine Lvl (s): 0.61 07/13 04:57 WBC: 8.0 Hgb: 11.0 L Hct: 34.3 Platelet: 118 L Neutrophil %: 82.2 H Glucose Level: 139 H Sodium Level: 143 Potassium Level: 3.9 BUN: 16.0 Creatinine Lvl (s): 0.66 Imaging Results and Diagnostics XR Enteric Tube Placement Result Date: July 14, 2022 Verified By: ALDO DEVINE MD CLINICAL STATEMENT: IMPRESSION: Appropriate positioning of the OG tube. XR Chest 1 View Result Date: July 14, 2022 Verified By: EDER CLARK MD CLINICAL STATEMENT: IMPRESSION: Grossly unchanged bibasilar infiltrates/atelectasis and small left pleuraleffusion. I have personally reviewed the images of this examination, and agree with theresident's findings and interpretation. CT Spine Cervical w/o Contrast Result Date: July 14, 2022 Verified By: EDER CLARK MD CLINICAL STATEMENT: IMPRESSION: Instrumented posterior fusion of C2 through T2 and laminectomy of C2 throughC6. Bilateral pedicle fracture of C6 with extension distraction fracture C6-H1thtyt no change in alignment. XR Chest 1 View Result Date: July 13, 2022 Verified By: JARETH MAK MD CLINICAL STATEMENT: IMPRESSION: 1. Endotracheal tube terminating approximately 5.3 cm above the judith. 2. Interval placement surgical hardware throughout the cervical spine 3. Unchanged bibasilar reticular opacities favoring atelectasis withadditional airspace disease felt to be less likely however not excluded. 4. Unchanged small left pleural effusion. I have personally reviewed the images of this examination and agree with theresident's findings and interpretation. XR Spine Cervical Ap/Lat Result Date: July 13, 2022 Verified By: ROMINA STUBBS, RICHAR Mohan CLINICAL STATEMENT: IMPRESSION: Severely limited exam. A surgical sponge is not clearly identified. XR Fluoro 2 Hrs Tech Time Result Date: July 13, 2022 Verified By: EDER CLARK MD CLINICAL STATEMENT: IMPRESSION: Intraprocedural fluoroscopic spot images as above. See separate procedurereport for more information. XR Chest 1 View Result Date: July 12, 2022 Verified By: GRETCHEN TAYLOR MD CLINICAL STATEMENT: IMPRESSION: No significant change in the bibasilar atelectasis or other airspace diseaseand small left pleural effusion. XR Spine Cervical 1 View Result Date: July 12, 2022 Verified By: EDER CLARK MD CLINICAL STATEMENT: IMPRESSION: Nondiagnostic assessment of alignment of C6-C7 where known subluxation wasdemonstrated on prior CT scan. XR Spine Thoracic 1 View Result Date: July 11, 2022 Verified By: YOAV PALOMINO DO CLINICAL STATEMENT: IMPRESSION: Nearly nondiagnostic exam secondary to body habitus. No obvious compressionfracture or spondylolisthesis in the visualized spine. ATTENDING ADDENDUM: This exam is nondiagnostic to excludethoracic fracture or traumaticmalalignment, especially in the setting of known cervical spine fractu re.Exam is limited secondary to portable cross-table lateral technique. XR Spine Cervical 1 View Result Date: July 11, 2022 Verified By: YOAV PALOMINO DO CLINICAL STATEMENT: IMPRESSION: Limited exam secondary to inability to perform swimmer's view. Anterior discspace widening at C6-7 is again noted, however C7 is not well demonstratedand subluxation cannot be adequately assessed. I have reviewed the resident's preliminary report and agree with findings andimpression. MRI Spine Cervical w/o Contrast Result Date: July 11, 2022 Verified By: ROBERTA ROSARIO MD CLINICAL STATEMENT: IMPRESSION: Displaced and distracted C6-C7 fracture. There is stenosis at this level,but there is no definite cord compression and there is no abnormal signal inthe cord at this or any other level. 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 Milder degenerative changes at the remaining levels. Mild stenosis at C4-C5and C5-C6. Signal changes in the ishmael, likely small vessel ischemic disease. EKG No qualifying data available. Assessment/Plan S/P C2 to C7 decompressive laminectomy, C2 to T2 posterior bone screw/merari fixation and fusion: -Patient remains intubated. -She is following commands and moving all 4 ext. -Just started on Precedex d/t agitation/anxiety. -Will continue to monitor drain output. -Ancef while drain in place. -Will hopefully be extubated tomorrow and can start PT/OT. Poultry Farm Manager following for medical and pulmonary management. Time Spent 15 min Digitally Signed by ARYAN VAZ on 07/14/2022 11:59 AM [id number] Note ORIGINAL EXAMINATION: ONE SUPINE XRAY VIEW(S) OF THE ABDOMEN 07/14/2022 9:23 am COMPARISON: Prior chest x-ray of the same date. HISTORY: ORDERING SYSTEM PROVIDED HISTORY: Reason for Exam: og placement FINDINGS: Orogastric tube tip and side hole are seen overlying the greater curvature of the stomach in appropriate position. No free intra-air is appreciated. Limited views of the chest redemonstrate an endotracheal tube which appears to be 5.2 cm above the judith. Unchanged small to moderate left pleural effusion is noted. Right basilar atelectasis versus infiltrates are again noted. There is no pneumothorax. Bony structures overall appear intact. IMPRESSION: Appropriate positioning of the OG tube. Interpreted by: Aldo Devine MD Preliminary Report By: Aldo Devine MD Electronically signed By Aldo Devine MD Dictated Date: 07/14/2022 9:39:43 AM Prelim Date: 07/14/2022 9:41:47 AM Sign Date: 07/14/2022 9:41:47 AM Ordering Provider: [facility]08-31-2022 Note ORIGINAL EXAMINATION: ONE SUPINE XRAY VIEW(S) OF THE ABDOMEN 07/14/2022 9:23 am COMPARISON: Prior chest x-ray of the same date. HISTORY: ORDERING SYSTEM PROVIDED HISTORY: Reason for Exam: og placement FINDINGS: Orogastric tube tip and side hole are seen overlying the greater curvature of the stomach in appropriate position. No free intra-air is appreciated. Limited views of the chest redemonstrate an endotracheal tube which appears to be 5.2 cm above the judith. Unchanged small to moderate left pleural effusion is noted. Right basilar atelectasis versus infiltrates are again noted. There is no pneumothorax. Bony structures overall appear intact. IMPRESSION: Appropriate positioning of the OG tube. Interpreted by: Aldo Devine MD Preliminary Report By: Aldo Devine MD Electronically signed By Aldo Devine MD Dictated Date: 07/14/2022 9:39:43 AM Prelim Date: 07/14/2022 9:41:47 AM Sign Date: 07/14/2022 9:41:47 AM Ordering Provider: [facility]08-31-2022 Note Date of Service 07/14/2022 Chief Complaint 71 years old lady with known history of diabetes mellitus, hypertension, dyslipidemia and obesity, had abnormal PFTs in the past were finding are suggestive of restrictive lung disease with a total lung capacity of 45% of predicted, underwent CAT scan of the chest January 2021 which reveals no evidence of interstitial lung disease just some scarring in both lower lobes, patient also uses 2 L of oxygen chronically patient uses a walker due to her chronic back pain and an unsteady gait, unfortunately fell yesterday went to outside hospital where initially CAT scan of the neck was done which reveals evidence of C6-C7 fracture along with some stenosis at the level of C2C3 so that patient was transferred to [facility] where she was evaluated per neurosurgery Dr. Trace Matthews and cervical MRI was performed which reveals dislocation and unstable fracture of the C6-7 along with mild cord compression at the level of C2 and C3 so that Shalini brace was applied and the plan is OR sometimes today. This was a purely mechanical fall as patient felt with her walker, no syncope or presyncopal symptoms, patient has not had increasing shortness of breath or any resting or exercise-induced or walkinginduced chest pain for the few days prior to this incidence. And there has been no loss of consciousness. Patient quit cigarette smoking 20 years ago after she smoked for 10 to 15 years few cigarettes a day between 1-3 and no manifestation of COPD and her spirometry reveals no obstructive defect in the past. In addition patient had a 2D echo back in 2018 which reveals normal LV and RV size and functions. Subjective Yesterday patient underwent C2 to C7 decompressive laminectomy, C2 to T2 posterior bone screw/merari fixation with autograft/allograft fusion. No major complications Intra-Op. Postop patient returned tothe ICU on mechanical ventilation. She was intubated with a fiberoptic scope. This morning sedationwas discontinued patient aroused appropriately. She is currently lying calmly in bed, follows commands moves all 4 limbs. Did well on CPAP trial. However she did not have significant cuff leak Objective Vitals and Measurements T: 37.2 C (Oral) TMIN: 35.35 C TMAX: 37.2 C (Oral) HR: 128(Monitored) RR: 21(Total) BP: 93/48 BP: 152/82(Line) SpO2: 95% HT: 165 cm WT: 98.7 kg BMI: 36.25 Intake and Output 7AM Yesterday to 7AM Today Intake and Output (Last 24 hours) Intake Administration Information 3965.89 Output Surgical Drain, Tube Output: 310.00 Urinary Catheter Output: 775.00 Intra-Op Urine Catheter 1300.00 Intra-Op EBL 300.00 Total Summary Total Intake 3965.89 Total Output 2685.00 Fluid Balance 1280.89 Physical Exam General: Awake on mechanical ventilation Oral cavity: Endotracheally intubated Neck: No mass, hard cervical collar in place CVS: RRR, No murmur, Normal S1S2, no LL edema Respiratory: Coarse bilateral breath sounds, no wheezing, no crackles, no accessory muscle use Abdomen: Non-tender, no guarding, no rigidity, normal bowel sounds Ext: Warm to touch Neuro: Follows commands and moves all 4 extremities Weight Dosing Weight: 98.7 kg (07/13/22) Dosing Weight: 98.7 kg (07/11/22) Medications Medications (28) Active Scheduled: (13) acetaminophen PMX 1,000 mg 100 mL, IV Piggyback, q6hr atorvastatin 10 mg tablet 10 mg 1 tab(s), Oral, qHS ceFAZolin 1 gram(s) 10 mL, Topical (INT), PREOP pharm cefTRIAXone IVP syringe 2 gram(s) 20 mL, IV Push (INT), qDay chlorhexidine topical 0.12% Liquid (60 mL) 15 mL, Swish & Spit, QID gabapentin 300 mg Capsule 300 mg 1 cap(s), Oral, TID losartan 100 mg tablet 100 mg 1 tab(s), Oral, qDay methylPREDNISolone succ 40mg (40 mg/1mL) after dilution 60 mg 1.5 mL, IV Push, q8h metoprolol 1 mg/mL (5mL) vial 2.5 mg 2.5 mL, IV Push, q6h nystatin powder 100,000 units/g 15 Gram(s) 1 marcy, Topical, AsDirected ocular lubricant - Ointment 3.5 gram(s) 1 marcy, Eyes, both, q8h ocular lubricant preserved Soln 15 mL 1 drop(s), Eyes, both, q8h pantoprazole 40 mg VIAL 40 mg, IV Push, qDayAC Continuous: (6) dexmedetomidine 400 mcg [0.2 mcg/kg/hr] + Sodium Chloride 0.9% intravenous solution 96 mL 96 mL, Intravenous, 4.94 mL/hr insulin regular 100 unit(s) + NS Premix Diluent 100 mL 100 mL, Intravenous nicardipine PMX 20 mg [2.5 mg/hr] + NS Premix Diluent 200 mL 200 mL, Intravenous, 25 mL/hr norepinephrine 8 mg [5 mcg/min] + NS Premix Diluent 250 mL 250 mL, Intravenous, 9.38 mL/hr NS (0.9% nacl) 1,000 mL 1,000 mL, Intravenous, 50 mL/hr NS (0.9% nacl) 1,000 mL 1,000 mL, Intravenous, 50 mL/hr PRN: (9) dextrose 50% Solution Disp syringe 50 mL 25 g 50 mL, IV Push, AsDirected docusate sodium 100 mg Capsule 100 mg 1 cap(s), Oral, BID fentaNYL 50 mcg/mL (2mL) ampule 25 mcg 0.5 mL, IV Push, q15min insulin regular human recombinant 100 units/mL (3 mL) Soln sliding scale insulin, Subcutaneous, q4h ocular lubricant - Ointment 3.5 gram(s) 1 marcy, Eyes, both, AsDirected ocular lubricant preserved Soln 15 mL 1 drop(s), Eyes, both, AsDirected ondansetron 2 mg/ 1 mL 2 mL INJ 4 mg 2 mL, IV Push, q4h polyethylene glycol 3350 - UD packet 17 gram(s) 15 mL, Oral, qDay prochlorperazine 10 mg/2 mL vial 5 mg 1 mL, IV Push, q4h Lab Results 07/14 04:17 WBC: 12.8 H Hgb: 9.8 L Hct: 29.8 L Platelet: 143 L Neutrophil %: 84.6 H Glucose Level: 191 H Sodium Level: 144 Potassium Level: 3.8 BUN: 19.0 Creatinine Lvl (s): 0.66 07/13 17:39 WBC: 7.5 Hgb: 10.6 L Hct: 32.1 L Platelet: 107 L Neutrophil %: 85.8 H Protime: 13.0 PT International Ratio: 1.1 Glucose Level: 160 H Sodium Level: 142 Potassium Level: 3.6 BUN: 17.0 Creatinine Lvl (s): 0.61 07/13 04:57 WBC: 8.0 Hgb: 11.0 L Hct: 34.3 Platelet: 118 L Neutrophil %: 82.2 H Glucose Level: 139 H Sodium Level: 143 Potassium Level: 3.9 BUN: 16.0 Creatinine Lvl (s): 0.66 EKG No qualifying data available. Assessment/Plan 1. Mechanical fall with CT 6 7 dislocation and unstable fracture, mild cord compression at C2-C3. S/p C2 to C7 decompressive laminectomy, C2 to T2 posterior bone screw/merari fixation with autograft/allograft fusion on July 13 2. Chronic respiratory failure requiring 2 L of oxygen at home, with severe restrictive defect on her pulmonary function test back in 2019, CAT scan of the chest reveals no evidence of interstitial lung disease. 3. Diabetes mellitus. 4. Chronic hypertension on beta-blockers and ARB. 5. Chronic back pain and unsteady gait for which patient uses a walker. 6. E. coli UTI Plan: 1. Continue mechanical ventilation today with lung protective strategy. Oxygen requirements are minimal. Given hard cervical collar in place reintubation will be difficult. We will start Solu-Medrol 60 mg every 8 hour and reassess cuff leak test tomorrow 2. Place NG tube and start home dose of losartan and attempt to wean off nicardipine drip. Switch IV metoprolol to 25 mg PO BID via ng 3. SCDs for DVT prophylaxis and Protonix for GI prophylaxis. Discuss with neurosurgery if heparin subcu can be restarted 4. Ceftriaxone for E. coli UTI 35 minutes critical care time. Digitally Signed by ANNE-MARIE MCGRAW MD on 07/14/2022 08:56 AM Digitally Signed by ANNE-MARIE MCGRAW MD on 07/16/2022 09:53 AM [id number] Note ORIGINAL EXAMINATION: CT OF THE CERVICAL SPINE WITHOUT CONTRAST 07/14/2022 5:26 am TECHNIQUE: CT of the cervical spine was performed without the administration of intravenous contrast. Multiplanar reformatted images are provided for review. Automated exposure control, iterative reconstruction, and/or weight based adjustment of the mA/kV was utilized to reduce the radiation dose to as low as reasonably achievable. COMPARISON: CT cervical spine on 07/11/2022 HISTORY: ORDERING SYSTEM PROVIDED HISTORY: Reason for Exam: Posterior cervical fusion FINDINGS: BONES/ALIGNMENT: Instrumented posterior fusion of C2 through T2 has been performed. Hardware is intact. Pedicular screws are in satisfactory position. Laminectomy of C2 through C6 is noted. Bilateral pedicular fracture of C6 with 4 mm of anterior subluxation of C6 on C7 and widening of anterior disc space is unchanged. Surgical drains are present on the right. Small amount of postoperative soft tissue gas is seen. No postoperative hematoma is detected. DEGENERATIVE CHANGES: There is diffuse intervertebral disc disease with disc space narrowing in prominent endplate degenerative spurring and ossification of anterior and posterior longitudinal ligaments. SOFT TISSUES: There is no prevertebral soft tissue swelling. IMPRESSION: Instrumented posterior fusion of C2 through T2 and laminectomy of C2 through C6. Bilateral pedicle fracture of C6 with extension distraction fracture C6-C7 shows no change in alignment. Interpreted by: Eder Clark MD Preliminary Report By: Eder Clark MD Electronically signed By Eder Clark MD Dictated Date: 07/14/2022 6:43:56 AM Prelim Date: 07/14/2022 6:52:00 AM Sign Date: 07/14/2022 6:52:00 AM Ordering Provider: NITA MADERA [id number] Note ORIGINAL EXAMINATION: ONE XRAY VIEW OF THE CHEST07/14/2022 5:47 am COMPARISON: 07/13/2022 HISTORY: ORDERING SYSTEM PROVIDED HISTORY: Reason for Exam: Abnormal breath sounds FINDINGS: Endotracheal tube distal tip is approximately 5.3 cm above the judith. The cardiomediastinal silhouette is unchanged. The lung volumes are low. There is no visible pneumothorax. Bibasilar infiltrates/atelectasis are again noted. Small left pleural effusion present. No right pleural effusion. No acute bony findings. There is fusion hardware at the cervical spine. IMPRESSION: Grossly unchanged bibasilar infiltrates/atelectasis and small left pleural effusion. I have personally reviewed the images of this examination, and agree with the resident's findings and interpretation. Interpreted by: Eder Clark MD Preliminary Report By: Mariana Lozano Electronically signed By Eder Clark MD Dictated Date: 07/14/2022 5:52:21 AM Prelim Date: 07/14/2022 5:56:35 AM Sign Date: 07/14/2022 6:00:18 AM Ordering Provider: [place] [id number] Note ORIGINAL EXAMINATION: ONE XRAY VIEW OF THE CHEST07/14/2022 5:47 am COMPARISON: 07/13/2022 HISTORY: ORDERING SYSTEM PROVIDED HISTORY: Reason for Exam: Abnormal breath sounds FINDINGS: Endotracheal tube distal tip is approximately 5.3 cm above the judith. The cardiomediastinal silhouette is unchanged. The lung volumes are low. There is no visible pneumothorax. Bibasilar infiltrates/atelectasis are again noted. Small left pleural effusion present. No right pleural effusion. No acute bony findings. There is fusion hardware at the cervical spine. IMPRESSION: Grossly unchanged bibasilar infiltrates/atelectasis and small left pleural effusion. I have personally reviewed the images of this examination, and agree with the resident's findings and interpretation. Interpreted by: Eder Clark MD Preliminary Report By: Mariana Lozano Electronically signed By Eder Clark MD Dictated Date: 07/14/2022 5:52:21 AM Prelim Date: 07/14/2022 5:56:35 AM Sign Date: 07/14/2022 6:00:18 AM Ordering Provider: [place] [facility]08-31-2022 Note ORIGINAL EXAMINATION: CT OF THE CERVICAL SPINE WITHOUT CONTRAST 07/14/2022 5:26 am TECHNIQUE: CT of the cervical spine was performed without the administration of intravenous contrast. Multiplanar reformatted images are provided for review. Automated exposure control, iterative reconstruction, and/or weight based adjustment of the mA/kV was utilized to reduce the radiation dose to as low as reasonably achievable. COMPARISON: CT cervical spine on 07/11/2022 HISTORY: ORDERING SYSTEM PROVIDED HISTORY: Reason for Exam: Posterior cervical fusion FINDINGS: BONES/ALIGNMENT: Instrumented posterior fusion of C2 through T2 has been performed. Hardware is intact. Pedicular screws are in satisfactory position. Laminectomy of C2 through C6 is noted. Bilateral pedicular fracture of C6 with 4 mm of anterior subluxation of C6 on C7 and widening of anterior disc space is unchanged. Surgical drains are present on the right. Small amount of postoperative soft tissue gas is seen. No postoperative hematoma is detected. DEGENERATIVE CHANGES: There is diffuse intervertebral disc disease with disc space narrowing in prominent endplate degenerative spurring and ossification of anterior and posterior longitudinal ligaments. SOFT TISSUES: There is no prevertebral soft tissue swelling. IMPRESSION: Instrumented posterior fusion of C2 through T2 and laminectomy of C2 through C6. Bilateral pedicle fracture of C6 with extension distraction fracture C6-C7 shows no change in alignment. Interpreted by: Eder Clark MD Preliminary Report By: Eder Clark MD Electronically signed By Eder Clark MD Dictated Date: 07/14/2022 6:43:56 AM Prelim Date: 07/14/2022 6:52:00 AM Sign Date: 07/14/2022 6:52:00 AM Ordering Provider: [facility]AD[facility] [id number] Note ORIGINAL EXAMINATION: SPOT FLUOROSCOPIC IMAGES 07/13/2022 4:55 pm TECHNIQUE: Fluoroscopy was provided by the radiology department for procedure. Radiologist was not present during examination. FLUOROSCOPY DOSE AND TYPE OR TIME AND EXPOSURES: Fluoro time: C-arm 17.6 seconds. O arm 2.7 seconds. Radiation dose: C-arm 3.2 mGy. O arm 125.85 mGy COMPARISON: Cervical spine x-ray on 07/12/2022 HISTORY: ORDERING SYSTEM PROVIDED HISTORY: Reason for Exam: C6 C7 FX Intraprocedural imaging. FINDINGS: 3 spot images of the cervical spine were obtained with the C-arm, and 581 images of the cervical spine were obtained with the O arm.. Imaging guidance provided for cervical spine surgery. IMPRESSION: Intraprocedural fluoroscopic spot images as above. See separate procedure report for more information. Interpreted by: Eder Clark MD Preliminary Report By: Eder Clrak MD Electronically signed By Eder Clark MD Dictated Date: 07/14/2022 4:24:22 AM Prelim Date: 07/14/2022 4:26:28 AM Sign Date: 07/14/2022 4:26:28 AM Ordering Provider: MARYCHUY MICHAUD [facility] [id number] Note ORIGINAL EXAMINATION: ONE XRAY VIEW OF THE CHEST07/13/2022 5:46 pm COMPARISON: Chest x-ray July 12, 2022 at 8:20 a.m. HISTORY: ORDERING SYSTEM PROVIDED HISTORY: Reason for Exam: Endotracheal tube placement FINDINGS: Interval placement of an endotracheal tube thought to be terminating approximately 5.3 cm above the judith. Interval surgical hardware noted within the cervical spine. The cardiomediastinal silhouette is stable. Low lung volumes bilaterally. No significant pulmonary vascular congestion. Bibasilar reticular opacities appearing similar to prior exam. Unchanged small left pleural effusion. No pneumothorax. Multilevel degenerative changes of the spine and bilateral shoulders. IMPRESSION: 1. Endotracheal tube terminating approximately 5.3 cm above the judith. 2. Interval placement surgical hardware throughout the cervical spine 3. Unchanged bibasilar reticular opacities favoring atelectasis with additional airspace disease felt to be less likely however not excluded. 4. Unchanged small left pleural effusion. I have personally reviewed the images of this examination and agree with the resident's findings and interpretation. Interpreted by: Jareth Mak Preliminary Report By: Velvet Paniagua Electronically signed By Jareth Mak Dictated Date: 07/13/2022 7:27:41 PM Prelim Date: 07/13/2022 7:33:02 PM Sign Date: 07/13/2022 9:06:27 PM Ordering Provider: [place] [facility]08-30-2022 Note ORIGINAL EXAMINATION: ONE XRAY VIEW OF THE CHEST07/13/2022 5:46 pm COMPARISON: Chest x-ray July 12, 2022 at 8:20 a.m. HISTORY: ORDERING SYSTEM PROVIDED HISTORY: Reason for Exam: Endotracheal tube placement FINDINGS: Interval placement of an endotracheal tube thought to be terminating approximately 5.3 cm above the judith. Interval surgical hardware noted within the cervical spine. The cardiomediastinal silhouette is stable. Low lung volumes bilaterally. No significant pulmonary vascular congestion. Bibasilar reticular opacities appearing similar to prior exam. Unchanged small left pleural effusion. No pneumothorax. Multilevel degenerative changes of the spine and bilateral shoulders. IMPRESSION: 1. Endotracheal tube terminating approximately 5.3 cm above the judith. 2. Interval placement surgical hardware throughout the cervical spine 3. Unchanged bibasilar reticular opacities favoring atelectasis with additional airspace disease felt to be less likely however not excluded. 4. Unchanged small left pleural effusion. I have personally reviewed the images of this examination and agree with the resident's findings and interpretation. Interpreted by: Jareth Mak Preliminary Report By: Velvet Paniagua Electronically signed By Jareth Mak Dictated Date: 07/13/2022 7:27:41 PM Prelim Date: 07/13/2022 7:33:02 PM Sign Date: 07/13/2022 9:06:27 PM Ordering Provider: [place] [facility]08-30-2022 Note ORIGINAL EXAMINATION: SPOT FLUOROSCOPIC IMAGES 07/13/2022 4:55 pm TECHNIQUE: Fluoroscopy was provided by the radiology department for procedure. Radiologist was not present during examination. FLUOROSCOPY DOSE AND TYPE OR TIME AND EXPOSURES: Fluoro time: C-arm 17.6 seconds. O arm 2.7 seconds. Radiation dose: C-arm 3.2 mGy. O arm 125.85 mGy COMPARISON: Cervical spine x-ray on 07/12/2022 HISTORY: ORDERING SYSTEM PROVIDED HISTORY: Reason for Exam: C6 C7 FX Intraprocedural imaging. FINDINGS: 3 spot images of the cervical spine were obtained with the C-arm, and 581 images of the cervical spine were obtained with the O arm.. Imaging guidance provided for cervical spine surgery. IMPRESSION: Intraprocedural fluoroscopic spot images as above. See separate procedure report for more information. Interpreted by: Eder Clark MD Preliminary Report By: Eder Clark MD Electronically signed By Eder Clark MD Dictated Date: 07/14/2022 4:24:22 AM Prelim Date: 07/14/2022 4:26:28 AM Sign Date: 07/14/2022 4:26:28 AM Ordering Provider: [facility]08-30-2022 Note Date of Service 07/13/2022 Split/shared visit with Dr. Jaswant MD Neurosurgical CC: Unstable C6-7 fracture or dislocation post fall. 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 Patient transferred to [place] ED. Stat MRI completed and patient admitted to the surgical ICU by Dr. Matthews Patient was initially planned for ACDF C6-C7 and plating C5-T1 by Dr. Matthews on 07/12/2022. Dr. Matthews canceled surgery. Dr. Michaud met with patient yesterday and plans to take patient to surgery today for cervical stabilization No acute events overnight. Patient does remain hemodynamically stable. Had the episode of tachycardia and hypotension in the ED while Shalini brace being placed on and patient being rolled from left to right. When sitting up yesterday for lateral x-ray, patient had hypoxia, and Dr. Matthews at the bedside for this episode. She has complaints of neck discomfort. No worsening neurological symptoms of worsening paresthesia or weakness Objective Vitals and Measurements T: 37.2 C (Oral) TMIN: 37 C (Oral) TMAX: 37.7 C (Oral) HR: 114(Apical) RR: 20 BP: 150/78 SpO2: 96% HT: 165 cm WT: 98.7 kg BMI: 36.25 Intake and Output 7AM Yesterday to 7AM Today Intake and Output (Last 24 hours) Intake Administration Information 1200.00 Oral Intake 250.00 Output Urinary Catheter Output: 1100.00 Stool Count 0.00 Total Summary Total Intake 1450.00 Total Output 1100.00 Fluid Balance 350.00 Physical Exam Patient is awake and alert. After readjusting patient in bed she is more comfortable. She gives fairly good effort moving all extremities. Remains with weakness of the left tricep/bicep and youth agent. Negative Pierre's. She does have 3 beats of clonus bilaterally. Lower extremity strength remains equal, moderate. I encourage patient to dorsiflex/plantarflex feet frequently while lying in bed. Light touch sensation is decreased in left foot and left hand, otherwise sensation is intact peritoneal area, trunk and extremities. Lungs are clear/diminished. She does remain on 2 L nasal cannula and saturating well. Required increase in O2 yesterday after sitting up with Dr. Matthews for lateral cervical spine x-rays. Heart rate isregular, intermittently tachycardic. Blood pressure has remained stable. No hypotension since arrival to ED. Abdomen is soft, bowel sounds are present. She has remained n.p.o. after midnight. She didtolerate small amount of food yesterday afternoon/evening without nausea or vomiting. Nausea resolved yesterday after Zofran/Compazine. Shalini brace remains in place, patient requires education to not move in brace as she does try andadjusted fairly frequently under chin Weight Dosing Weight: 98.7 kg (07/12/22) Dosing Weight: 98.7 kg (07/11/22) Medications Medications (18) Active Scheduled: (7) atorvastatin 10 mg tablet 10 mg 1 tab(s), Oral, qHS ceFAZolin 1 gram(s) 10 mL, Topical (INT), PREOP pharm cefTRIAXone IVP syringe 2 gram(s) 20 mL, IV Push (INT), qDay enalaprilat 1.25 mg/mL (2 mL) vial 0.625 mg 0.5 mL, IV Push, BID gabapentin 300 mg Capsule 300 mg 1 cap(s), Oral, TID metoprolol 1 mg/mL (5mL) vial 2.5 mg 2.5 mL, IV Push, q6h pantoprazole 40 mg VIAL 40 mg, IV Push, qDayAC Continuous: (2) insulin regular 100 unit(s) + NS Premix Diluent 100 mL 100 mL, Intravenous NS (0.9% nacl) 1,000 mL 1,000 mL, Intravenous, 50 mL/hr PRN: (9) acetaminophen 325 mg Tablet 650 mg 2 tab(s), Oral, q4h acetaminophen-HYDROcodone 325-5 mg tablet 1 tab(s), Oral, q4h dextrose 50% Solution Disp syringe 50 mL 25 g 50 mL, IV Push, AsDirected docusate sodium 100 mg Capsule 100 mg 1 cap(s), Oral, BID HYDROmorphone 0.5 mg/0.5 mL PF syringe 0.5 mg 0.5 mL, IV Push, q3h insulin regular human recombinant 100 units/mL (3 mL) Soln sliding scale insulin, Subcutaneous, q4h ondansetron 2 mg/ 1 mL 2 mL INJ 4 mg 2 mL, IV Push, q4h polyethylene glycol 3350 - UD packet 17 gram(s) 15 mL, Oral, qDay prochlorperazine 10 mg/2 mL vial 5 mg 1 mL, IV Push, q4h Lab Results 07/13 04:57 WBC: 8.0 Hgb: 11.0 L Hct: 34.3 Platelet: 118 L Neutrophil %: 82.2 H 07/12 02:49 WBC: 8.2 Hgb: 11.6 L Hct: 36.6 Platelet: 105 L Neutrophil %: 82.8 H Glucose Level: 138 H Sodium Level: 145 Potassium Level: 4.6 BUN: 14.0 Creatinine Lvl (s): 0.65 Imaging Results and Diagnostics XR Chest 1 View Result Date: July 12, 2022 Verified By: GRETCHEN TAYLOR MD CLINICAL STATEMENT: IMPRESSION: No significant change in the bibasilar atelectasis or other airspace diseaseand small left pleural effusion. XR Spine Cervical 1 View Result Date: July 12, 2022 Verified By: EDER CLARK MD CLINICAL STATEMENT: IMPRESSION: Nondiagnostic assessment of alignment of C6-C7 where known subluxation wasdemonstrated on prior CT scan. XR Spine Thoracic 1 View Result Date: July 11, 2022 Verified By: YOAV PALOMINO DO CLINICAL STATEMENT: IMPRESSION: Nearly nondiagnostic exam secondary to body habitus. No obvious compressionfracture or spondylolisthesis in the visualized spine. ATTENDING ADDENDUM: This exam is nondiagnostic to excludethoracic fracture or traumaticmalalignment, especially in the setting of known cervical spine fractu re.Exam is limited secondary to portable cross-table lateral technique. XR Spine Cervical 1 View Result Date: July 11, 2022 Verified By: YOAV PALOMINO DO CLINICAL STATEMENT: IMPRESSION: Limited exam secondary to inability to perform swimmer's view. Anterior discspace widening at C6-7 is again noted, however C7 is not well demonstratedand subluxation cannot be adequately assessed. I have reviewed the resident's preliminary report and agree with findings andimpression. MRI Spine Cervical w/o Contrast Result Date: July 11, 2022 Verified By: ROBERTA ROSARIO MD CLINICAL STATEMENT: IMPRESSION: Displaced and distracted C6-C7 fracture. There is stenosis at this level,but there is no definite cord compression and there is no abnormal signal inthe cord at this or any other level. 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 Milder degenerative changes at the remaining levels. Mild stenosis at C4-C5and C5-C6. Signal changes in the ishmael, likely small vessel ischemic disease. EKG EKG - Completed -- 07/12/22 3:29:00 EDT Assessment/Plan 71-year-old female sustained a unwitnessed mechanical fall over her walker landing on left side andface 07/11/2022. Denies LOC. Developed immediate neck pain post fall. She was taken to [facility] by EMS found to have cervical spine injury and transferred to [place] ED. Stat MRI completed and patient was admitted to the surgical ICU by Dr. 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 Michaud has assumed care of the patient and plans for cervical stabilization today. She has been medically cleared by intensive care physician Keep patient in Shalini brace at all times. Education offered to patient, most remain in neutral position and brace as she does pull on kang piece frequently due to discomfort. Continue to offer pain medications and muscle relaxers as needed Please refer to Dr. Michaud's addendum [1] Progress Note; NITA MADERA 07/12/2022 05:43 EDT Digitally Signed by NITA MADERA on 07/13/2022 05:50 AM [id number] Note ORIGINAL EXAMINATION: TWO XRAY VIEWS OF THE CERVICAL SPINE07/13/2022 3:20 pm CERVICAL SPINE 2 VIEWS COMPARISON: None HISTORY: ORDERING SYSTEM PROVIDED HISTORY: Reason for Exam: missing raytec FINDINGS: Limited intraoperative images were obtained sewing multilevel surgical fusion. There surgical wires/drainage catheters projecting over the posterior aspect of the neck. Multilevel degenerative changes seen in the spine. Numerous extrinsic artifacts seen. The reported missing surgical sponge is not clearly seen. Endotracheal tube partially visualized. IMPRESSION: Severely limited exam. A surgical sponge is not clearly identified. Interpreted by: Richar Hassan MD Preliminary Report By: Richar Hassan MD Electronically signed By Richar Hassan MD Dictated Date: 07/13/2022 3:44:17 PM Prelim Date: 07/13/2022 3:47:11 PM Sign Date: 07/13/2022 3:47:11 PM Ordering Provider: MARYCHUY MICHAUD [facility] [id number] Note ORIGINAL EXAMINATION: TWO XRAY VIEWS OF THE CERVICAL SPINE07/13/2022 3:20 pm CERVICAL SPINE 2 VIEWS COMPARISON: None HISTORY: ORDERING SYSTEM PROVIDED HISTORY: Reason for Exam: missing raytec FINDINGS: Limited intraoperative images were obtained sewing multilevel surgical fusion. There surgical wires/drainage catheters projecting over the posterior aspect of the neck. Multilevel degenerative changes seen in the spine. Numerous extrinsic artifacts seen. The reported missing surgical sponge is not clearly seen. Endotracheal tube partially visualized. IMPRESSION: Severely limited exam. A surgical sponge is not clearly identified. Interpreted by: Richar Hassan MD Preliminary Report By: Richar Hassan MD Electronically signed By Richar Hassan MD Dictated Date: 07/13/2022 3:44:17 PM Prelim Date: 07/13/2022 3:47:11 PM Sign Date: 07/13/2022 3:47:11 PM Ordering Provider: [facility]08-30-2022 Anesthesiology Consult note Patient: POLI RAMIREZ Age: 71 years Sex: Female : 1950 Associated Diagnoses: None Author: ALEJANDRA HERNANDEZ MD Preoperative Information Time of last food or liquid consumption: 07/13/2022 00:00:00 Anesthesia history Patient's history: negative. Family's history: negative. History of Present Illness The patient presents for preanesthesia evaluation with Patient is a medically complex 71-year-old female who was admitted to the SICU after sustaining a fall resulting in an unstable cervical spine injury with cord compression, she presents this morning for nonelective surgery to stabilize her neckand prevent further neurologic insult. Prior to her fall, she states she ambulates with great difficulty, and is basically wheelchair-bound. She denies any recent cardiopulmonary limitations, symptoms of ischemia, or symptoms suggestive for congestive heart failure. She does have a prior cardiac history including a previous [place], however, she has not had any interventions, stents/CABG for her coronary disease. In January 2021 she underwent a cardiac stress test did not show any evidence of myocardium at risk, however she did have a small area of prior injury/infarction in her apex. Her ejection fraction was estimated at 43% on that study. She had another echo which revealed a normal ejection fraction, however, it was a difficult study from a visualization standpoint. She also has a history ofhypertension, hypercholesterolemia, diabetes, ankylosing spondylitis which is contributing to her neurologic issue. She also has a history of oxygen dependent restrictive lung disease, she states herbreathing is at baseline without recent pulmonary exacerbations or upper respiratory infections. She is currently in the collar with unstable cervical spine per studies over the weekend. She denies any symptoms of reflux, she has no allergies to medications, and she has no previous anesthetic issues. She is amenable to receiving blood should she require this during the course of this operation. She also has a history of obstructive sleep apnea. I reviewed her chart, studies, labs, consultations. I spoke with her at length about the anesthetic plan and risks including placement of additional IV's for access, A-line for hemodynamic monitoring and blood draws, possible blood transfusion, return to SICU postoperatively with probable mechanical ventilation due to the extensive nature of her planned spinal surgery. Patient verbalized understanding of the plan, risks, and signed consent on herown behalf to proceed with general anesthesia for planned procedure. Her EKG is sinus rhythm with aright bundle branch block and a left anterior fascicular block. 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 As mentioned above, patient is asymptomatic from an ischemic standpoint, and has no changes in medical management of her coronary disease per her report. I did mention that due to her previous cardiac disease, she is at a increased risk of perioperative cardiac andother morbidity. She verbalized understanding. Health Status Allergies: Allergic Reactions (Selected) NKA, Allergies (1) ActiveReaction NKANone Documented Current medications: (Selected) Inpatient Medications Ordered Colace: 100 mg, 1 cap(s), Oral, BID, PRN: Constipation Compazine: 5 mg, 1 mL, IV Push, q4h, PRN: as needed for nausea/vomiting Dextrose: 25 g, 50 mL, IV Push, AsDirected, PRN: Low blood sugar Dilaudid: 0.5 mg, 0.5 mL, IV Push, q3h, PRN: Pain, scale 7-10 HumuLIN R: sliding scale insulin, Subcutaneous, q4h, PRN: Protocol, glycemic control Insulin Regular for IV 100 unit(s) + NS Premix Diluent 100 mL: Sliding Scale Insulin, Intravenous Lopressor IV: 2.5 mg, 2.5 mL, IV Push, q6h Miralax Powder Packet: 17 gram(s), 15 mL, Oral, qDay, PRN: Constipation NS 1,000 mL: 50 mL/hr, Intravenous [place] 325- 5 mg oral tablet: 1 tab(s), Oral, q4h, PRN: Pain, scale 7-10 Protonix IV Push: 40 mg, IV Push, qDayAC Rocephin: 2 gram(s), 20 mL, 240 mL/hr, IV Push (INT), qDay Tylenol: 650 mg, 2 tab(s), Oral, q4h, PRN: Pain, scale 1-6 Vasotec: 0.625 mg, 0.5 mL, IV Push, BID Zofran: 4 mg, 2 mL, IV Push, q4h, PRN: Nausea/Vomiting atorvastatin: 10 mg, 1 tab(s), Oral, qHS ceFAZolin: 1 gram(s), 10 mL, 0 mL/hr, Topical (INT), PREOP pharm gabapentin: 300 mg, 1 cap(s), Oral, TID Prescriptions Prescribed Lasix 20 mg oral tablet: 20 mg, 1 tab(s), Oral, BID, 180 tab(s), 3 Refill(s) Myrbetriq 25 mg oral tablet, extended release: 25 mg, 1 tab(s), Oral, qDay, 90 tab(s), 3 Refill(s) diclofenac potassium 50 mg oral tablet: 50 mg, 1 tab(s), Oral, qDay, 90 tab(s), 3 Refill(s) dicyclomine 20 mg oral tablet: 20 mg, 1 tab(s), Oral, BID, for 90 day(s), 180 tab(s), 3 Refill(s) estradiol 0.1 mg/g vaginal cream: 1 appl, Vaginal, 2X/week, for 30 day(s), 42.5 gram(s), 11 Refill(s) glimepiride 4 mg oral tablet: 4 mg, 1 tab(s), Oral, qDay, 30 tab(s), 3 Refill(s) losartan 100 mg oral tablet: 100 mg, 1 tab(s), Oral, qDay, 90 tab(s), 3 Refill(s) metoprolol succinate 50 mg oral TABLET extended release: 50 mg, 1 tab(s), Oral, qDay, 90 tab(s), 3 Refill(s) omeprazole 20 mg oral delayed release capsule: 20 mg, 1 cap(s), Oral, qDayAC, PRN: abdominal discomfort, 90 cap(s), 3 Refill(s) oxybutynin 5 mg oral tablet: 5 mg, 1 tab(s), Oral, qDay, 90 tab(s), 3 Refill(s) simvastatin 10 mg oral tablet: 10 mg, 1 tab(s), Oral, qHS, 90 tab(s), 0 Refill(s) Documented Medications Documented aspirin 81 mg oral delayed release tablet: 81 mg, 1 tab(s), Oral, Daily, 0 Refill(s) gabapentin 300 mg oral capsule: 300 mg, 1 cap(s), Oral, TID, 0 Refill(s) nitroglycerin 0.4 mg sublingual tablet: 0.4 mg, 1 tab(s), Sublingual, q5min, Medications (18) Active Scheduled: (7) atorvastatin 10 mg tablet 10 mg 1 tab(s), Oral, qHS ceFAZolin 1 gram(s) 10 mL, Topical (INT), PREOP pharm cefTRIAXone IVP syringe 2 gram(s) 20 mL, IV Push (INT), qDay enalaprilat 1.25 mg/mL (2 mL) vial 0.625 mg 0.5 mL, IV Push, BID gabapentin 300 mg Capsule 300 mg 1 cap(s), Oral, TID metoprolol 1 mg/mL (5mL) vial 2.5 mg 2.5 mL, IV Push, q6h pantoprazole 40 mg VIAL 40 mg, IV Push, qDayAC Continuous: (2) insulin regular 100 unit(s) + NS Premix Diluent 100 mL 100 mL, Intravenous NS (0.9% nacl) 1,000 mL 1,000 mL, Intravenous, 50 mL/hr PRN: (9) acetaminophen 325 mg Tablet 650 mg 2 tab(s), Oral, q4h acetaminophen-HYDROcodone 325-5 mg tablet 1 tab(s), Oral, q4h dextrose 50% Solution Disp syringe 50 mL 25 g 50 mL, IV Push, AsDirected docusate sodium 100 mg Capsule 100 mg 1 cap(s), Oral, BID HYDROmorphone 0.5 mg/0.5 mL PF syringe 0.5 mg 0.5 mL, IV Push, q3h insulin regular human recombinant 100 units/mL (3 mL) Soln sliding scale insulin, Subcutaneous, q4h ondansetron 2 mg/ 1 mL 2 mL INJ 4 mg 2 mL, IV Push, q4h polyethylene glycol 3350 - UD packet 17 gram(s) 15 mL, Oral, qDay prochlorperazine 10 mg/2 mL vial 5 mg 1 mL, IV Push, q4h Problem list: Medical Chronic anemia / SNOMED CT 354061814 / Confirmed Chronic back pain / SNOMED CT 002043353 / Confirmed COPD / SNOMED CT 50748566 / Confirmed Hypertension, essential / SNOMED CT 64947325 / Confirmed GERD (gastroesophageal reflux disease) / SNOMED CT [id number] / Confirmed Goiter / SNOMED CT 0795113 / Confirmed Hyperlipidemia / SNOMED CT 66695545 / Confirmed Incontinence of urine / SNOMED CT 6831614020 / Confirmed, Active Problems (30) Anemia Arthritis Benign colon polyp Breast cancer Chest pain Chronic anemia Chronic back pain COPD Dependence on wheelchair Diabetes mellitus type 2 Diabetic neuropathy Diarrhea Dysphagia Edema of both lower extremities General weakness GERD (gastroesophageal reflux disease) Glasses Goiter Hard of hearing Heart attack History of radiation exposure Hx of thrombocytopenia Hyperlipidemia Hypertension, essential Incontinence of urine Osteoarthritis Oxygen dependent Pancreatic cyst Rheumatic fever Urinary incontinence Histories Past Medical History: Active COPD (16383488) Chronic back pain (847190352) Resolved H/O hypercholesterolemia (8860335304): Resolved. Hypernatremia (4824526487): Resolved. Family History: Heart disease Father Brother Arthritis Daughter Stroke Mother Cancer Sister HTN - Hypertension Mother GERD (gastroesophageal reflux disease) Daughter Diverticulitis Daughter Procedure history: None ([id number]). Appendectomy ([id number]). Comments: 08/11/2017 12:13 SHAMA BOLTON left water taken off Tubal ligation (290540357). Cholecystectomy (60184901). Arthroscopic knee operation (5757298823). Comments: 12/24/2019 13:16 SHAMA Gabriel right Lumpectomy of breast ([id number]). Comments: 12/24/2019 13:16 SHAMA Gabriel left Phacoemulsification of cataract with intraocular lens implantation ([id number]). Comments: 12/24/2019 13:16 SHAMA Gabriel both eyes Colonoscopy (715049772). Esophagogastroduodenoscopy (946855647). Cardiac catheter (6152985383). Comments: 12/24/2019 13:17 SHAMA Gabriel years ago Social History Social & Psychosocial Habits Alcohol 08/27/2019 Use: Never Substance Abuse 08/27/2019 Use: Never Tobacco 03/10/2020 Tobacco Use: Former smoker, quit more Exposure to Tobacco Smoke Lives with someone who sm Started at age: 17 Years Stopped at age: 49 Years Home/Environment 12/24/2019 Living situation: Home/Independent Lives In 1st floor bathroom, 1st floor bedroom, Multilevel home Current Home Treatments Blood Glucose monitoring, Oxygen therapy Marital Status of Patient if Patient Independent Adult: Nutrition/Health 08/27/2019 Caffeine intake amount: 2-3 servings of coffee daily 12/24/2019 Type of diet: Diabetic Appetite Good Eating Difficulties Swallowing . Physical Examination Vital Signs 07/13/2022 5:28 EDT Apical Heart Rate 114 bpm HI 07/13/2022 5:25 EDT Heart Rate Monitored 114 bpm HI Respiratory Rate 20 br/min Systolic Blood Pressure NBP 150 mmHg HI Diastolic Blood Pressure NBP 78 mmHg Mean Arterial Pressure (NBP) 95 mmHg Reason For Taking VItal Signs Routine 07/13/2022 3:52 EDT Temperature Oral 37.2 DegC Heart Rate Monitored 108 bpm HI Respiratory Rate 18 br/min Systolic Blood Pressure NBP 111 mmHg Diastolic Blood Pressure NBP 63 mmHg Mean Arterial Pressure (NBP) 74 mmHg Reason For Taking VItal Signs Routine 07/13/2022 1:45 EDT Heart Rate Monitored 114 bpm HI Respiratory Rate 18 br/min Systolic Blood Pressure NBP 119 mmHg Diastolic Blood Pressure NBP 46 mmHg Mean Arterial Pressure (NBP) 64 mmHg Reason For Taking VItal Signs Routine 07/13/2022 0:00 EDT Apical Heart Rate Not Done: Physician Order (Not Done) 07/12/2022 23:52 EDT Temperature Oral 37.1 DegC Heart Rate Monitored 114 bpm HI Respiratory Rate 17 br/min Systolic Blood Pressure NBP 111 mmHg Diastolic Blood Pressure NBP 59 mmHg LOW Mean Arterial Pressure (NBP) 72 mmHg Reason For Taking VItal Signs Routine 07/12/2022 21:54 EDT Heart Rate Monitored 109 bpm HI Respiratory Rate 16 br/min Systolic Blood Pressure NBP 110 mmHg Diastolic Blood Pressure NBP 52 mmHg LOW Mean Arterial Pressure (NBP) 64 mmHg Reason For Taking VItal Signs Routine 07/12/2022 19:45 EDT Temperature Oral 37.7 DegC HI Heart Rate Monitored 127 bpm HI Respiratory Rate 22 br/min HI Systolic Blood Pressure NBP 135 mmHg Diastolic Blood Pressure NBP 59 mmHg LOW Mean Arterial Pressure (NBP) 76 mmHg Reason For Taking VItal Signs Routine 07/12/2022 18:06 EDT Apical Heart Rate 114 bpm HI 07/12/2022 18:01 EDT Heart Rate Monitored 113 bpm HI Respiratory Rate 19 br/min Systolic Blood Pressure NBP 135 mmHg Diastolic Blood Pressure NBP 61 mmHg Mean Arterial Pressure (NBP) 79 mmHg Reason For Taking VItal Signs Routine 07/12/2022 15:06 EDT Temperature Oral 37.2 DegC Heart Rate Monitored 118 bpm HI Respiratory Rate 20 br/min Systolic Blood Pressure NBP 154 mmHg HI Diastolic Blood Pressure NBP 90 mmHg HI Mean Arterial Pressure (NBP) 103 mmHg Reason For Taking VItal Signs Routine 07/12/2022 14:03 EDT Heart Rate Monitored 103 bpm HI Respiratory Rate 17 br/min Systolic Blood Pressure NBP 150 mmHg HI Diastolic Blood Pressure NBP 76 mmHg Mean Arterial Pressure (NBP) 92 mmHg 07/12/2022 13:06 EDT Heart Rate Monitored 101 bpm HI Respiratory Rate 16 br/min Systolic Blood Pressure NBP 136 mmHg Diastolic Blood Pressure NBP 55 mmHg LOW Mean Arterial Pressure (NBP) 76 mmHg Reason For Taking VItal Signs Routine 07/12/2022 12:03 EDT Heart Rate Monitored 96 bpm Respiratory Rate 16 br/min Systolic Blood Pressure NBP 141 mmHg HI Diastolic Blood Pressure NBP 61 mmHg Mean Arterial Pressure (NBP) 81 mmHg 07/12/2022 11:06 EDT Temperature Oral 37 DegC Apical Heart Rate 103 bpm HI Heart Rate Monitored 101 bpm HI Respiratory Rate 16 br/min Systolic Blood Pressure NBP 141 mmHg HI Diastolic Blood Pressure NBP 62 mmHg Mean Arterial Pressure (NBP) 81 mmHg Reason For Taking VItal Signs Routine 07/12/2022 10:24 EDT Heart Rate Monitored 104 bpm HI Respiratory Rate 14 br/min Systolic Blood Pressure NBP 136 mmHg Diastolic Blood Pressure NBP 57 mmHg LOW Mean Arterial Pressure (NBP) 76 mmHg Reason For Taking VItal Signs Routine 07/12/2022 10:00 EDT Heart Rate Monitored 100 bpm 07/12/2022 9:25 EDT Heart Rate Monitored 101 bpm HI Respiratory Rate 12 br/min LOW Systolic Blood Pressure NBP 141 mmHg HI Diastolic Blood Pressure NBP 60 mmHg Mean Arterial Pressure (NBP) 79 mmHg Reason For Taking VItal Signs Routine 07/12/2022 8:05 EDT Heart Rate Monitored 100 bpm Respiratory Rate 14 br/min Systolic Blood Pressure NBP 148 mmHg HI Diastolic Blood Pressure NBP 59 mmHg LOW Mean Arterial Pressure (NBP) 79 mmHg Reason For Taking VItal Signs Routine 07/12/2022 7:15 EDT Temperature Oral 37 DegC Heart Rate Monitored 110 bpm HI Respiratory Rate 16 br/min Systolic Blood Pressure NBP 152 mmHg HI Diastolic Blood Pressure NBP 69 mmHg Mean Arterial Pressure (NBP) 89 mmHg Reason For Taking VItal Signs Routine 07/12/2022 6:01 EDT Heart Rate Monitored 104 bpm HI Respiratory Rate 15 br/min Systolic Blood Pressure NBP 163 mmHg >HHI Diastolic Blood Pressure NBP 79 mmHg Mean Arterial Pressure (NBP) 97 mmHg Reason For Taking VItal Signs Routine 07/12/2022 3:05 EDT Temperature Oral 36.7 DegC Heart Rate Monitored 96 bpm Respiratory Rate 13 br/min LOW Systolic Blood Pressure NBP 143 mmHg HI Diastolic Blood Pressure NBP 65 mmHg Mean Arterial Pressure (NBP) 82 mmHg Reason For Taking VItal Signs Routine 07/12/2022 2:03 EDT Heart Rate Monitored 98 bpm Respiratory Rate 13 br/min LOW Systolic Blood Pressure NBP 139 mmHg Diastolic Blood Pressure NBP 66 mmHg Mean Arterial Pressure (NBP) 82 mmHg Reason For Taking VItal Signs Routine 07/12/2022 0:38 EDT Heart Rate Monitored 98 bpm Respiratory Rate 13 br/min LOW Systolic Blood Pressure NBP 138 mmHg Diastolic Blood Pressure NBP 76 mmHg Mean Arterial Pressure (NBP) 70 mmHg Vital Signs(last 24 hrs) Last Charted Temp Oral37.2 DegC (JUL 13 03:52) Heart Rate MonitoredH 114bpm (JUL 13 05:25) Resp Rate 20 br/min (JUL 13 05:25) SBPH 150mmHg (JUL 13 05:25) DBP78 mmHg (JUL 13 05:25) BMI36.25 (JUL 12 11:30) Measurements from flowsheet : Measurements 07/12/2022 11:30 EDT Height 165 cm (Modified) Height in inches 65 inch(es) (Modified) Admission Weight 98.7 kg (Modified) Weight Lbs 217.1 lb (Modified) [place] Body Weight 56.91 kg BSA Admission 2.05 (Modified) Body Mass Index 36.25 kg/m2 (Modified) Pain assessment: Pain Assessment 07/13/2022 5:25 EDT Primary Pain Location Head Primary Pain Intensity 6 Primary Pain Non-Pharma Intervention Lights dimmed, Repositioning Primary Pain Nonverbal Response Nods Yes Pain Scale Type 0-10 Pain scale 07/13/2022 3:52 EDT Primary Pain Intensity 0 Primary Pain Non-Pharma Intervention Repositioning Primary Pain Nonverbal Response Nods No Pain Scale Type 0-10 Pain scale 07/13/2022 1:45 EDT Primary Pain Intensity 0 Primary Pain Non-Pharma Intervention Repositioning Primary Pain Nonverbal Response Nods No Pain Scale Type 0-10 Pain scale 07/12/2022 23:52 EDT Primary Pain Intensity 0 Primary Pain Non-Pharma Intervention Repositioning Primary Pain Nonverbal Response Nods No Pain Scale Type 0-10 Pain scale 07/12/2022 21:54 EDT Primary Pain Intensity 0 Primary Pain Non-Pharma Intervention Repositioning Primary Pain Nonverbal Response Nods No Pain Scale Type 0-10 Pain scale 07/12/2022 20:57 EDT Pain Scale Assessment 0-10 Pain scale Primary Pain Location Generalized Primary Pain Intensity 0 07/12/2022 19:57 EDT Primary Pain Location Generalized Primary Pain Intensity 4 Primary Pain Quality Aching Primary Pain Pharma Intervention Medication Primary Pain Non-Pharma Intervention Repositioning Primary Pain Alleviating Factors In Error (In Error) Primary Pain Nonverbal Response Nods Yes Pain Scale Type 0-10 Pain scale 07/12/2022 19:45 EDT Primary Pain Location Generalized Primary Pain Intensity 4 Primary Pain Nonverbal Response Nods Yes Pain Scale Type 0-10 Pain scale 07/12/2022 18:01 EDT Primary Pain Location Generalized Primary Pain Intensity 2 Primary Pain Onset Gradual Primary Pain Quality Aching Primary Pain Non-Pharma Intervention Repositioning Primary Pain Alleviating Factors Repositioning Primary Pain Nonverbal Response Nods Yes Pain Scale Type 0-10 Pain scale 07/12/2022 15:06 EDT Primary Pain Location Generalized Primary Pain Intensity 2 Primary Pain Time Pattern acute Primary Pain Onset Gradual Primary Pain Quality Aching Primary Pain Non-Pharma Intervention Repositioning Primary Pain Alleviating Factors Medication Primary Pain Nonverbal Response Nods Yes Pain Scale Type 0-10 Pain scale 07/12/2022 13:06 EDT Primary Pain Location Generalized Primary Pain Intensity 2 Primary Pain Time Pattern acute Primary Pain Onset Gradual Primary Pain Quality Aching Primary Pain Non-Pharma Intervention Repositioning Primary Pain Alleviating Factors Repositioning Primary Pain Nonverbal Response Nods Yes Pain Scale Type 0-10 Pain scale 07/12/2022 11:06 EDT Primary Pain Location Generalized Primary Pain Intensity 4 Primary Pain Time Pattern acute Primary Pain Onset Gradual Primary Pain Quality Aching Primary Pain Non-Pharma Intervention Repositioning Primary Pain Alleviating Factors Medication, Repositioning Primary Pain Nonverbal Response Nods Yes Pain Scale Type 0-10 Pain scale 07/12/2022 9:25 EDT Primary Pain Location Generalized Primary Pain Time Pattern acute Primary Pain Onset Gradual Primary Pain Quality Aching Primary Pain Non-Pharma Intervention Repositioning Primary Pain Alleviating Factors Medication, Repositioning Primary Pain Nonverbal Response Nods Yes Pain Scale Type 0-10 Pain scale 07/12/2022 8:05 EDT Primary Pain Location Generalized Primary Pain Intensity 4 Primary Pain Quality Aching Primary Pain Non-Pharma Intervention Repositioning Primary Pain Alleviating Factors Medication, Repositioning Primary Pain Nonverbal Response Nods Yes Pain Scale Type 0-10 Pain scale 07/12/2022 7:15 EDT Primary Pain Location Generalized Primary Pain Intensity 5 Primary Pain Time Pattern acute Primary Pain Onset Gradual Primary Pain Quality Aching Primary Pain Non-Pharma Intervention Repositioning Primary Pain Alleviating Factors Medication, Repositioning Primary Pain Nonverbal Response Nods Yes Pain Scale Type 0-10 Pain scale 07/12/2022 6:43 EDT Primary Pain Intensity 10 07/12/2022 5:48 EDT Pain Scale Assessment 0-10 Pain scale Primary Pain Location Generalized Primary Pain Intensity 9 07/12/2022 5:18 EDT Primary Pain Intensity 10 07/12/2022 3:05 EDT Primary Pain Location Upper back Primary Pain Intensity 3 Primary Pain Nonverbal Response Nods Yes Pain Scale Type 0-10 Pain scale 07/12/2022 2:03 EDT Primary Pain Location Upper back Primary Pain Intensity 3 Primary Pain Quality Sharp Primary Pain Non-Pharma Intervention Lights dimmed, Noise reduction measures, Repositioning, Rest Pain Scale Type 0-10 Pain scale 07/12/2022 0:38 EDT Pain Scale Assessment 0-10 Pain scale Primary Pain Location Upper back Primary Pain Intensity 4 07/12/2022 0:08 EDT Primary Pain Intensity 7 . General: Alert and oriented, Mild distress. Airway: Normal mouth. Unable to examine: She is currently in a hard cervical spine immobilization device.. Mallampati classification: III (soft palate, base of uvula visible). Head: Normocephalic, Some abrasions about her face. Dentition Evaluation: Intact. Neck: Supple, Non-tender. Respiratory: Lungs are clear to auscultation, Respirations are non-labored. Cardiovascular: Normal rate, Regular rhythm. Heart Sounds: Normal. Neurologic: Alert, Oriented. Review / Management Results review: Labs (Last four charted values) WBC 8.0(JUL 13)8.2(JUL 12)6.8(JUL 11) Hgb L 11.0(JUL 13)L 11.6(JUL 12)L 11.0(JUL 11) Hct 34.3(JUL 13)36.6(JUL 12)34.6(JUL 11) Plt L 118(JUL 13)L 105(JUL 12)L 102(JUL 11) Na 143(JUL 13)145(JUL 12)144(JUL 11) K 3.9(JUL 13)4.6(JUL 12)4.8(JUL 11) CO2 H 39(JUL 13)H 35(JUL 12)C 40(JUL 11) Cl 100(JUL 13)103(JUL 12)101(JUL 11) Cr 0.66(JUL 13)0.65(JUL 12)0.66(JUL 11) BUN 16.0(JUL 13)14.0(JUL 12)18.0(JUL 11) Glucose H 139(JUL 13)H 138(JUL 12)H 147(JUL 11) Mg 1.8(JUL 12) Phos 4.3(JUL 12) Ca 9.3(JUL 13)9.2(JUL 12)9.5(JUL 11) PT 11.2(JUL 11) INR 0.9(JUL 11) PTT 28.8(JUL 11) , Lab results 07/13/2022 6:59 EDT Sodium Chloride 0.9% 400 mL mL 07/13/2022 6:49 EDT Urinary Elimination Urinary catheter draining IV Present Present Patient Dressed In Hospital gown CHG Preoperative Wash/Wipe Site specific wipe Preop Nasal Swab Povidone-Iodine 07/13/2022 6:13 EDT IHC At-Risk Indicator YES 07/13/2022 5:41 EDT Neurosurgery Rounding Note Progress Note 07/13/2022 5:41 EDT Mechanical VTE Prophylaxis Education Not Done: See ICU flow (Not Done) Mechanical VTE Prophylaxis Education Not Done: See ICU flow (Not Done) Sequential Compression Device Form Not Done (Not Done) Sequential Compression Device Form Not Done (Not Done) 07/13/2022 5:30 EDT IHC At-Risk Indicator YES 07/13/2022 5:28 EDT Apical Heart Rate 114 bpm HI metoprolol 2.5 mg mg pantoprazole 40 mg mg Sodium Chloride 0.9% Begin Bag 1,000 mL mL 07/13/2022 5:25 EDT Heart Rate Monitored 114 bpm HI Respiratory Rate 20 br/min Systolic Blood Pressure NBP 150 mmHg HI Diastolic Blood Pressure NBP 78 mmHg Mean Arterial Pressure (NBP) 95 mmHg Reason For Taking VItal Signs Routine Oral Care ICU Done Eye Care Done Primary Pain Location Head Primary Pain Intensity 6 Primary Pain Non-Pharma Intervention Lights dimmed, Repositioning Primary Pain Nonverbal Response Nods Yes Pain Scale Type 0-10 Pain scale Monitor Alarms On and Limits Checked Nail Bed Color [place] Capillary Refill < 2 seconds Heart Sounds ICU S1S2 Heart Rhythm Regular Dorsalis Pedis Pulse, Left 1+ Thready Dorsalis Pedis Pulse, Right 1+ Thready Posttibial Pulse, Left 1+ Thready Posttibial Pulse, Right 1+ Thready Radial Pulse, Left 2+ Normal Radial Pulse, Right 2+ Normal Edema Generalized None Cardiac Rhythm Sinus tachycardia Monitoring Lead II, V1/MCL1 Alarms On and Functional Yes Heart Rate Alarm Set At - Low 50 Heart Rate Alarm Set At - High 120 NSBP Alarm Low 110 NSBP Alarm High 160 HI Respirations Unlabored Respiratory Pattern Regular Nasal Symptoms None Breath Sounds Auscultated Anterior only All Lobes Breath Sounds Clear, Diminished Cough and Deep Breathe Done Cough None Oxygen Therapy Nasal cannula 0L-6L Oxygen Saturation 96 % Oxygen Flow Rate 4 Tracheal Position Midline Abdomen Description Non-distended Abdomen Palpation Non-Tender Bowel Sounds All Quadrants Present Urinary Elimination Urinary catheter draining Urine Color Yellow Urine Description Medium amount Urinary Elimination Devices Indwelling catheter Urethral Indwelling/Continuous 16 Fr 07/12/2022 Urinary Catheter Indication: Order for Strict I&O Urinary Catheter Activity: Assessed Urinary Catheter Secured: Securement device on Urinary Catheter Drainage System: Dependent drainage bag Urinary Catheter Site Condition: No complications Facial Movement Makes facial grimaces Skin Symptoms Bruising All Extremity Description [place] Skin Temperature Warm Temperature All Extremities Warm Skin Description [place], Normal for ethnicity Skin Integrity Not intact Skin Turgor Non-Elastic Mucous Membrane Color [place] Mucous Membrane Description Moist Nose Anterior Skin Abnormality Type: Abrasion Incision, Wound Dressing/Activity: Open to air Wound Status: No complications IV Present Present Continuous IV Infusions NS@50 Neurological Language Able to speak clearly Neurological Symptoms Drowsiness, Numbness Gait Unable to assess Extremity Movement Equal Swallowing Difficulty None Characteristics of Communication Appropriate Characteristics of Speech Clear Facial Symmetry Symmetric Level of Consciousness Arousable with minimal stimulation Eye Opening Response [place] To voice Best Motor Response [place] O[place] simple commands Best Verbal Response [place] Oriented Zeke Coma Score 14 YANICK Yes Left Pupil Description Regular Right Pupil Description Regular Left Pupil Reaction Brisk Right Pupil Reaction Brisk Pupil Size, Left 5 mm Pupil Size, Right 5 mm Strength All Extremities Moderate Left Upper Extremity Sensation Numbness Right Upper Extremity Sensation Intact Left Lower Extremity Sensation Numbness Right Lower Extremity Sensation Intact CN V Facial Sensation Corneal reflex present CN VII Facial Expression and Symmetry Facial movement symmetrical CN IX, X Swallowing, Gag Reflex Swallowing present Affect/Behavior Appropriate, Calm, Cooperative Orientation Oriented x 4 Resident Care Aid On Yes Patient Dressed In Hospital gown CHG Preoperative Wash/Wipe Day of procedure Activity Status ADL Repositions self Beds/Devices Fluid immersion bed Assistive Equipment elevated on pillows Activity Assistance Maximum assistance SCD On/Re-applied bilateral knee high Preventative Foam Drsg Location coccyx Standard Safety ID band on, Call device within reach, Bed in low position, Wheels locked, Upper/Half-Length side-rails up, Phone within reach, personal items within reach High Risk Safety Room check performed Special Call Device Special device provided Demonstrates Correct Call Light Use Yes COVID 19 Surge in Effect Yes Degrees Head of Bed Elevated 0 Last Fluid Intake 07/12/2022 23:55 Last Food Intake 07/12/2022 23:55 Stool Count 0 EA 07/13/2022 4:57 EDT WBC 8.0 10^3/mcL RBC 3.76 10^6/mcL LOW Hgb 11.0 G/dL LOW Hct 34.3 % MCV 91.2 fL MCH 29.3 pg MCHC 32.1 G/dL RDW 14.5 % Platelet 118 10^3/mcL LOW MPV 6.0 fL LOW Neutrophil % 82.2 % HI Lymphocyte % 10.4 % LOW Monocyte % 6.6 % Eosinophil % 0.4 % Basophil % 0.4 % Neutrophil, Absolute 6.6 10^3/mcL Lymphocyte, Absolute 0.8 10^3/mcL LOW Monocyte, Absolute 0.5 10^3/mcL Eosinophil, Absolute 0.0 10^3/mcL Basophil, Absolute 0.0 10^3/mcL Glucose Level 139 mg/dL HI Sodium Level 143 mEq/L Potassium Level 3.9 mEq/L Chloride 100 mEq/L CO2 39 mEq/L HI Electrolyte Balance 4.0 mEq/L BUN 16.0 mg/dL Creatinine Lvl (s) 0.66 mg/dL BUN/Creatinine Ratio 24.2 ratio HI Calcium Lvl 9.3 mg/dL GFR Non- >60 ml/min/1.73sqm NA GFR >60 ml/min/1.73sqm NA Creatinine Clearance Calc 69.22 mL/min 07/13/2022 4:21 EDT IHC At-Risk Indicator YES 07/13/2022 4:20 EDT IHC At-Risk Indicator YES 07/13/2022 4:18 EDT Mechanical VTE Prophylaxis Education Not Done: See ICU flow (Not Done) Mechanical VTE Prophylaxis Education Not Done: See ICU flow (Not Done) Sequential Compression Device Form Not Done (Not Done) Sequential Compression Device Form Not Done (Not Done) 07/13/2022 3:52 EDT Temperature Oral 37.2 DegC Heart Rate Monitored 108 bpm HI Respiratory Rate 18 br/min Systolic Blood Pressure NBP 111 mmHg Diastolic Blood Pressure NBP 63 mmHg Mean Arterial Pressure (NBP) 74 mmHg Reason For Taking VItal Signs Routine Oral Care ICU Done Eye Care Done Primary Pain Intensity 0 Primary Pain Non-Pharma Intervention Repositioning Primary Pain Nonverbal Response Nods No Pain Scale Type 0-10 Pain scale Monitor Alarms On and Limits Checked Nail Bed Color Oppelo Capillary Refill < 2 seconds Heart Sounds ICU S1S2 Heart Rhythm Regular Dorsalis Pedis Pulse, Left 1+ Thready Dorsalis Pedis Pulse, Right 1+ Thready Posttibial Pulse, Left 1+ Thready Posttibial Pulse, Right 1+ Thready Radial Pulse, Left 2+ Normal Radial Pulse, Right 2+ Normal Edema Generalized None Cardiac Rhythm Sinus tachycardia Monitoring Lead II, V1/MCL1 PA Interval 0.16 second(s) QRS Duration 0.09 second(s) QT Interval 0.42 second(s) QTc Interval 0.49 second(s) Alarms On and Functional Yes Heart Rate Alarm Set At - Low 50 Heart Rate Alarm Set At - High 120 NSBP Alarm Low 110 NSBP Alarm High 160 HI Respirations Unlabored Respiratory Pattern Regular Nasal Symptoms None Breath Sounds Auscultated Anterior only All Lobes Breath Sounds Clear, Diminished Cough and Deep Breathe Done Cough None Oxygen Therapy Nasal cannula 0L-6L Oxygen Saturation 98 % Oxygen Flow Rate 4 Tracheal Position Midline Abdomen Description Non-distended Abdomen Palpation Non-Tender, Soft Bowel Sounds All Quadrants Present Urinary Elimination Urinary catheter draining Urine Color Yellow Urine Description Medium amount Urinary Elimination Devices Indwelling catheter Urethral Indwelling/Continuous 16 Fr 07/12/2022 Urinary Catheter Indication: Order not to remove Urinary Catheter Activity: Assessed Urinary Catheter Secured: Securement device on Urinary Catheter Drainage System: Dependent drainage bag Urinary Catheter Site Condition: No complications Facial Movement Makes facial grimaces Skin Symptoms Bruising All Extremity Description Oppelo Skin Temperature Warm Temperature All Extremities Warm Skin Description Oppelo, Normal for ethnicity Skin Integrity Not intact Skin Turgor Non-Elastic Mucous Membrane Color Oppelo Mucous Membrane Description Moist Nose Anterior Skin Abnormality Type: Abrasion Incision, Wound Dressing/Activity: Open to air Wound Status: No complications Continuous IV Infusions NS@50 Neurological Language Able to speak clearly Neurological Symptoms Drowsiness, Numbness Gait Unable to assess Extremity Movement Equal Swallowing Difficulty None Characteristics of Communication Appropriate Characteristics of Speech Clear Facial Symmetry Symmetric Level of Consciousness Arousable with minimal stimulation Eye Opening Response Zeke To voice Best Motor Response [place] simple commands Best Verbal Response Zeke Oriented Zeke Coma Score 14 YANICK Yes Left Pupil Description Regular Right Pupil Description Regular Left Pupil Reaction Brisk Right Pupil Reaction Brisk Pupil Size, Left 5 mm Pupil Size, Right 5 mm Strength All Extremities Moderate Left Upper Extremity Sensation Numbness Right Upper Extremity Sensation Intact Left Lower Extremity Sensation Numbness Right Lower Extremity Sensation Intact CN V Facial Sensation Corneal reflex present CN VII Facial Expression and Symmetry Facial movement symmetrical CN IX, X Swallowing, Gag Reflex Swallowing present Violence Risk Confused No Violence Risk Irritable No Violence Risk Boisterous No Violence Risk Verbal Threats No Violence Risk Physical Threats No Violence Risk Attacking Objects No Violence Risk Predictor Score 0 Violence Risk Intervention None Violence Risk Current Interventions None Affect/Behavior Appropriate, Calm, Cooperative Orientation Oriented x 4 Activity Status ADL Repositioned left side Beds/Devices Fluid immersion bed Assistive Equipment elevated on pillows Activity Assistance Maximum assistance SCD On/Re-applied bilateral knee high Preventative Foam Drsg Location coccyx Standard Safety ID band on, Call device within reach, Bed in low position, Wheels locked, Upper/Half-Length side-rails up, Phone within reach, personal items within reach, Safety level maintained High Risk Safety Room check performed Special Call Device Special device provided Demonstrates Correct Call Light Use Yes COVID 19 Surge in Effect Yes Degrees Head of Bed Elevated 0 Stool Count 0 EA 07/13/2022 1:45 EDT Heart Rate Monitored 114 bpm HI Respiratory Rate 18 br/min Systolic Blood Pressure NBP 119 mmHg Diastolic Blood Pressure NBP 46 mmHg Mean Arterial Pressure (NBP) 64 mmHg Reason For Taking VItal Signs Routine Primary Pain Intensity 0 Primary Pain Non-Pharma Intervention Repositioning Primary Pain Nonverbal Response Nods No Pain Scale Type 0-10 Pain scale Monitor Alarms On and Limits Checked Nail Bed Color Oppelo Capillary Refill < 2 seconds Heart Sounds ICU S1S2 Heart Rhythm Regular Dorsalis Pedis Pulse, Left 1+ Thready Dorsalis Pedis Pulse, Right 1+ Thready Posttibial Pulse, Left 1+ Thready Posttibial Pulse, Right 1+ Thready Radial Pulse, Left 2+ Normal Radial Pulse, Right 2+ Normal Edema Generalized None Cardiac Rhythm Sinus tachycardia Monitoring Lead II, V1/MCL1 Alarms On and Functional Yes Heart Rate Alarm Set At - Low 50 Heart Rate Alarm Set At - High 120 NSBP Alarm Low 110 NSBP Alarm High 160 HI Respirations Unlabored Respiratory Pattern Regular Nasal Symptoms None Breath Sounds Auscultated Anterior only All Lobes Breath Sounds Diminished Cough and Deep Breathe Done Cough None Oxygen Therapy Nasal cannula 0L-6L Oxygen Saturation 97 % Oxygen Flow Rate 4 Tracheal Position Midline Abdomen Description Non-distended Abdomen Palpation Non-Tender, Soft Bowel Sounds All Quadrants Present Urinary Elimination Urinary catheter draining Urine Color Yellow Urine Description Medium amount Urinary Elimination Devices Indwelling catheter Urethral Indwelling/Continuous 16 Fr 07/12/2022 Urinary Catheter Indication: Order for Strict I&O Urinary Catheter Activity: Assessed Urinary Catheter Secured: Securement device on Urinary Catheter Drainage System: Dependent drainage bag Urinary Catheter Site Condition: No complications Facial Movement Makes facial grimaces Skin Symptoms Bruising All Extremity Description Oppelo Skin Temperature Warm Temperature All Extremities Warm Skin Description Oppelo, Normal for ethnicity Skin Integrity Not intact Skin Turgor Elastic Mucous Membrane Color Oppelo Mucous Membrane Description Moist Nose Anterior Skin Abnormality Type: Abrasion Incision, Wound Dressing/Activity: Open to air (Modified) Wound Status: No complications Continuous IV Infusions NS@50 Neurological Language Able to speak clearly Neurological Symptoms Drowsiness, Numbness Gait Unable to assess Extremity Movement Equal Swallowing Difficulty None Characteristics of Communication Appropriate Characteristics of Speech Clear Facial Symmetry Symmetric Level of Consciousness Arousable with minimal stimulation Eye Opening Response [place] To voice Best Motor Response [place] simple commands Best Verbal Response Zeke Oriented [place] Coma Score 14 YANICK Yes Left Pupil Description Regular Right Pupil Description Regular Left Pupil Reaction Brisk Right Pupil Reaction Brisk Pupil Size, Left 5 mm Pupil Size, Right 5 mm Strength All Extremities Moderate Left Upper Extremity Sensation Numbness Right Upper Extremity Sensation Intact Left Lower Extremity Sensation Numbness Right Lower Extremity Sensation Intact CN V Facial Sensation Corneal reflex present CN VII Facial Expression and Symmetry Facial movement symmetrical CN IX, X Swallowing, Gag Reflex Swallowing present Affect/Behavior Appropriate, Calm, Cooperative Orientation Oriented x 4 Activity Status ADL Repositioned right side Beds/Devices Fluid immersion bed Assistive Equipment elevated on pillows Activity Assistance Maximum assistance SCD On/Re-applied bilateral knee high Preventative Foam Drsg Location coccyx Standard Safety ID band on, Call device within reach, Bed in low position, Wheels locked, Upper/Half-Length side-rails up, Phone within reach, personal items within reach, Safety level maintained High Risk Safety Room check performed Special Call Device Special device provided Demonstrates Correct Call Light Use Yes COVID 19 Surge in Effect Yes Degrees Head of Bed Elevated 0 Stool Count 0 EA 07/13/2022 0:43 EDT Able To Drink Order Detail Yes Able To Sign Consents Order Detail Yes Code Status Order Detail Full code IV Order Detail Yes Dialysis Schedule Order Detail N/A Has Diabetes Order Detail Yes Isolation Precautions Order Detail None Nurse Collect Order Detail 0 Oxygen Order Detail Yes Order Detail N/A Prior Valve Replacement Order Detail No Transport Mode Order Detail Bed Nurse and Monitor Commercial Real Estate Manager Details Form Commercial Real Estate Manager Details Form 07/13/2022 0:40 EDT Notify date/time 07/13/2022 0:40 Provider Notified [place] Notification Method Phone Information Communicated Lab results Details Communicated ABG pH 7.34 BP 108/50 Notification Outcome Orders received Details of Results Received hold metoprolol 07/13/2022 0:01 EDT Oxygen Therapy Nasal cannula 0L-6L Oxygen Flow Rate 4 Blood Gas Drawn From Right Radial Artery Site Held by RT Jovon Test Positive 07/13/2022 0:00 EDT pH 7.340 LOW pCO2 76.0 mm Hg CRIT pO2 121.5 mm Hg HI HCO3 40.1 mmol/L HI CO2 Totl 42.4 mmol/L CRIT Base Excess 11.6 mmol/L NA O2 Sat 98.8 % HI Barometric Pressure 705 mm Hg NA Apical Heart Rate Not Done: Physician Order (Not Done) metoprolol Not Done: Physician Order (Not Done) 07/12/2022 23:52 EDT Blood Glucose, Capillary 137 mg/dL HI Blood Glucose Testing Reason Routine Temperature Oral 37.1 DegC Heart Rate Monitored 114 bpm HI Respiratory Rate 17 br/min Systolic Blood Pressure NBP 111 mmHg Diastolic Blood Pressure NBP 59 mmHg LOW Mean Arterial Pressure (NBP) 72 mmHg Reason For Taking VItal Signs Routine Oral Care ICU Done Eye Care Done Primary Pain Intensity 0 Primary Pain Non-Pharma Intervention Repositioning Primary Pain Nonverbal Response Nods No Pain Scale Type 0-10 Pain scale Monitor Alarms On and Limits Checked Nail Bed Color Oppelo Capillary Refill < 2 seconds Heart Sounds ICU S1S2 Heart Rhythm Regular Dorsalis Pedis Pulse, Left 1+ Thready Dorsalis Pedis Pulse, Right 1+ Thready Posttibial Pulse, Left 1+ Thready Posttibial Pulse, Right 1+ Thready Radial Pulse, Left 2+ Normal Radial Pulse, Right 2+ Normal Edema Generalized None Cardiac Rhythm Sinus tachycardia Monitoring Lead II, V1/MCL1 PA Interval 0.13 second(s) QRS Duration 0.08 second(s) QT Interval 0.38 second(s) QTc Interval 0.47 second(s) Alarms On and Functional Yes Heart Rate Alarm Set At - Low 50 Heart Rate Alarm Set At - High 120 NSBP Alarm Low 110 NSBP Alarm High 160 HI Respirations Unlabored Respiratory Pattern Regular Breath Sounds Auscultated Anterior only All Lobes Breath Sounds Clear, Diminished Cough None Oxygen Therapy Nasal cannula 0L-6L Oxygen Saturation 98 % Oxygen Flow Rate 4 Tracheal Position Midline Abdomen Description Non-distended Abdomen Palpation Non-Tender Bowel Sounds All Quadrants Present Urinary Elimination Urinary catheter draining Urine Color Yellow Urine Description Medium amount Urinary Elimination Devices Indwelling catheter Urethral Indwelling/Continuous 16 Fr 07/12/2022 Urinary Catheter Indication: Order for Strict I&O Urinary Catheter Activity: Assessed Urinary Catheter Secured: Securement device on Urinary Catheter Drainage System: Dependent drainage bag Urinary Catheter Site Condition: No complications Facial Movement Makes facial grimaces Skin Symptoms Bruising All Extremity Description Oppelo Skin Temperature Warm Temperature All Extremities Warm Skin Description Oppelo, Normal for ethnicity Skin Integrity Not intact Skin Turgor Non-Elastic Mucous Membrane Color Oppelo Mucous Membrane Description Moist Nose Anterior Skin Abnormality Type: Abrasion Incision, Wound Dressing/Activity: Open to air Wound Status: No complications Continuous IV Infusions NS@50 Forearm Right 18 gauge Peripheral IV Activity: Assessed Peripheral IV Dressing Condition: Clean, Dry, Intact Peripheral IV Dressing Activity: Transparent dressing Peripheral IV Line Status/Patency: Flushes easily Peripheral IV Line Care: Secured with tape Peripheral IV Site Condition: No complications Peripheral IV Equipment: IV Pump Neurological Language Able to speak clearly Neurological Symptoms Drowsiness, Numbness (Modified) Gait Unable to assess Extremity Movement Equal Swallowing Difficulty None Characteristics of Communication Appropriate Characteristics of Speech Clear Facial Symmetry Symmetric Level of Consciousness Arousable with minimal stimulation Eye Opening Response [place] To voice Best Motor Response Ze[place] Obeys simple commands Best Verbal Response Zeke Oriented Zeke Coma Score 14 YANICK Yes Left Pupil Description Regular Right Pupil Description Regular Left Pupil Reaction Brisk Right Pupil Reaction Brisk Pupil Size, Left 5 mm Pupil Size, Right 5 mm Strength All Extremities Moderate Left Upper Extremity Sensation Numbness Right Upper Extremity Sensation Intact Left Lower Extremity Sensation Numbness Right Lower Extremity Sensation Intact CN V Facial Sensation Corneal reflex present CN VII Facial Expression and Symmetry Facial movement symmetrical CN IX, X Swallowing, Gag Reflex Swallowing present Violence Risk Confused No Violence Risk Irritable No Violence Risk Boisterous No Violence Risk Verbal Threats No Violence Risk Physical Threats No Violence Risk Attacking Objects No Violence Risk Predictor Score 0 Violence Risk Intervention None Violence Risk Current Interventions None Affect/Behavior Appropriate, Calm, Cooperative Orientation Oriented x 4 [id number] Date of Service 07/13/2022 Split/shared visit with Dr. Jaswatn MD Neurosurgical CC: Unstable C6-7 fracture or dislocation post fall. 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 Patient transferred to [place] ED. Stat MRI completed and patient admitted to the surgical ICU by Dr. Matthews Patient was initially planned for ACDF C6-C7 and plating C5-T1 by Dr. Matthews on 07/12/2022. Dr. Matthews canceled surgery. Dr. Michaud met with patient yesterday and plans to take patient to surgery today for cervical stabilization No acute events overnight. Patient does remain hemodynamically stable. Had the episode of tachycardia and hypotension in the ED while Shalini brace being placed on and patient being rolled from left to right. When sitting up yesterday for lateral x-ray, patient had hypoxia, and Dr. Matthews at the bedside for this episode. She has complaints of neck discomfort. No worsening neurological symptoms of worsening paresthesia or weakness Objective Vitals and Measurements T: 37.2 C (Oral) TMIN: 37 C (Oral) TMAX: 37.7 C (Oral) HR: 114(Apical) RR: 20 BP: 150/78 SpO2: 96% HT: 165 cm WT: 98.7 kg BMI: 36.25 Intake and Output 7AM Yesterday to 7AM Today Intake and Output (Last 24 hours) Intake Administration Information 1200.00 Oral Intake 250.00 Output Urinary Catheter Output: 1100.00 Stool Count 0.00 Total Summary Total Intake 1450.00 Total Output 1100.00 Fluid Balance 350.00 Physical Exam Patient is awake and alert. After readjusting patient in bed she is more comfortable. She gives fairly good effort moving all extremities. Remains with weakness of the left tricep/bicep and youth agent. Negative Pierre's. She does have 3 beats of clonus bilaterally. Lower extremity strength remains equal, moderate. I encourage patient to dorsiflex/plantarflex feet frequently while lying in bed. Light touch sensation is decreased in left foot and left hand, otherwise sensation is intact peritoneal area, trunk and extremities. Lungs are clear/diminished. She does remain on 2 L nasal cannula and saturating well. Required increase in O2 yesterday after sitting up with Dr. Matthews for lateral cervical spine x-rays. Heart rate isregular, intermittently tachycardic. Blood pressure has remained stable. No hypotension since arrival to ED. Abdomen is soft, bowel sounds are present. She has remained n.p.o. after midnight. She didtolerate small amount of food yesterday afternoon/evening without nausea or vomiting. Nausea resolved yesterday after Zofran/Compazine. Shalini brace remains in place, patient requires education to not move in brace as she does try andadjusted fairly frequently under chin Weight Dosing Weight: 98.7 kg (07/12/22) Dosing Weight: 98.7 kg (07/11/22) Medications Medications (18) Active Scheduled: (7) atorvastatin 10 mg tablet 10 mg 1 tab(s), Oral, qHS ceFAZolin 1 gram(s) 10 mL, Topical (INT), PREOP pharm cefTRIAXone IVP syringe 2 gram(s) 20 mL, IV Push (INT), qDay enalaprilat 1.25 mg/mL (2 mL) vial 0.625 mg 0.5 mL, IV Push, BID gabapentin 300 mg Capsule 300 mg 1 cap(s), Oral, TID metoprolol 1 mg/mL (5mL) vial 2.5 mg 2.5 mL, IV Push, q6h pantoprazole 40 mg VIAL 40 mg, IV Push, qDayAC Continuous: (2) insulin regular 100 unit(s) + NS Premix Diluent 100 mL 100 mL, Intravenous NS (0.9% nacl) 1,000 mL 1,000 mL, Intravenous, 50 mL/hr PRN: (9) acetaminophen 325 mg Tablet 650 mg 2 tab(s), Oral, q4h acetaminophen-HYDROcodone 325-5 mg tablet 1 tab(s), Oral, q4h dextrose 50% Solution Disp syringe 50 mL 25 g 50 mL, IV Push, AsDirected docusate sodium 100 mg Capsule 100 mg 1 cap(s), Oral, BID HYDROmorphone 0.5 mg/0.5 mL PF syringe 0.5 mg 0.5 mL, IV Push, q3h insulin regular human recombinant 100 units/mL (3 mL) Soln sliding scale insulin, Subcutaneous, q4h ondansetron 2 mg/ 1 mL 2 mL INJ 4 mg 2 mL, IV Push, q4h polyethylene glycol 3350 - UD packet 17 gram(s) 15 mL, Oral, qDay prochlorperazine 10 mg/2 mL vial 5 mg 1 mL, IV Push, q4h Lab Results 07/13 04:57 WBC: 8.0 Hgb: 11.0 L Hct: 34.3 Platelet: 118 L Neutrophil %: 82.2 H 07/12 02:49 WBC: 8.2 Hgb: 11.6 L Hct: 36.6 Platelet: 105 L Neutrophil %: 82.8 H Glucose Level: 138 H Sodium Level: 145 Potassium Level: 4.6 BUN: 14.0 Creatinine Lvl (s): 0.65 Imaging Results and Diagnostics XR Chest 1 View Result Date: July 12, 2022 Verified By: GRETCHEN TAYLOR MD CLINICAL STATEMENT: IMPRESSION: No significant change in the bibasilar atelectasis or other airspace diseaseand small left pleural effusion. XR Spine Cervical 1 View Result Date: July 12, 2022 Verified By: EDER CLARK MD CLINICAL STATEMENT: IMPRESSION: Nondiagnostic assessment of alignment of C6-C7 where known subluxation wasdemonstrated on prior CT scan. XR Spine Thoracic 1 View Result Date: July 11, 2022 Verified By: YOAV PALOMINO DO CLINICAL STATEMENT: IMPRESSION: Nearly nondiagnostic exam secondary to body habitus. No obvious compressionfracture or spondylolisthesis in the visualized spine. ATTENDING ADDENDUM: This exam is nondiagnostic to excludethoracic fracture or traumaticmalalignment, especially in the setting of known cervical spine fractu re.Exam is limited secondary to portable cross-table lateral technique. XR Spine Cervical 1 View Result Date: July 11, 2022 Verified By: YOAV PALOMINO DO CLINICAL STATEMENT: IMPRESSION: Limited exam secondary to inability to perform swimmer's view. Anterior discspace widening at C6-7 is again noted, however C7 is not well demonstratedand subluxation cannot be adequately assessed. I have reviewed the resident's preliminary report and agree with findings andimpression. MRI Spine Cervical w/o Contrast Result Date: July 11, 2022 Verified By: ROBRETA ROSARIO MD CLINICAL STATEMENT: IMPRESSION: Displaced and distracted C6-C7 fracture. There is stenosis at this level,but there is no definite cord compression and there is no abnormal signal inthe cord at this or any other level. 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 Milder degenerative changes at the remaining levels. Mild stenosis at C4-C5and C5-C6. Signal changes in the ishmael, likely small vessel ischemic disease. EKG EKG - Completed -- 07/12/22 3:29:00 EDT Assessment/Plan 71-year-old female sustained a unwitnessed mechanical fall over her walker landing on left side andface 07/11/2022. Denies LOC. Developed immediate neck pain post fall. She was taken to [facility] by EMS found to have cervical spine injury and transferred to [place] ED. Stat MRI completed and patient was admitted to the surgical ICU by Dr. 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 Michaud has assumed care of the patient and plans for cervical stabilization today. She has been medically cleared by intensive care physician Keep patient in Shalini brace at all times. Education offered to patient, most remain in neutral position and brace as she does pull on kang piece frequently due to discomfort. Continue to offer pain medications and muscle relaxers as needed Please refer to Dr. Michaud's addendum [1] Progress Note; NITA MAEDRA APRN-TRAFFIC OR SYSTEM DISPATCHER 07/12/2022 05:43 EDT Digitally Signed by NITA MADERA APRN-TRAFFIC OR SYSTEM DISPATCHER on 07/13/2022 05:50 AM [id number] Anesthesiology Consult note* ALEJANDRA HERNANDEZ MD: PERFORM, SIGN, VERIFY Event Display: Anesthesiology Consultation Authored Date: [id number] Patient: POLI RAMIREZ Age: 71 years Sex: Female : 1950 Associated Diagnoses: None Author: ALEJANDRA HERNANDEZ MD Preoperative Information Time of last food or liquid consumption: 07/13/2022 00:00:00 Anesthesia history Patient's history: negative. Family's history: negative. History of Present Illness The patient presents for preanesthesia evaluation with Patient is a medically complex 71-year-old female who was admitted to the SICU after sustaining a fall resulting in an unstable cervical spine injury with cord compression, she presents this morning for nonelective surgery to stabilize her neckand prevent further neurologic insult. Prior to her fall, she states she ambulates with great difficulty, and is basically wheelchair-bound. She denies any recent cardiopulmonary limitations, symptoms of ischemia, or symptoms suggestive for congestive heart failure. She does have a prior cardiac history including a previous [place], however, she has not had any interventions, stents/CABG for her coronary disease. In January 2021 she underwent a cardiac stress test did not show any evidence of myocardium at risk, however she did have a small area of prior injury/infarction in her apex. Her ejection fraction was estimated at 43% on that study. She had another echo which revealed a normal ejection fraction, however, it was a difficult study from a visualization standpoint. She also has a history ofhypertension, hypercholesterolemia, diabetes, ankylosing spondylitis which is contributing to her neurologic issue. She also has a history of oxygen dependent restrictive lung disease, she states herbreathing is at baseline without recent pulmonary exacerbations or upper respiratory infections. She is currently in the collar with unstable cervical spine per studies over the weekend. She denies any symptoms of reflux, she has no allergies to medications, and she has no previous anesthetic issues. She is amenable to receiving blood should she require this during the course of this operation. She also has a history of obstructive sleep apnea. I reviewed her chart, studies, labs, consultations. I spoke with her at length about the anesthetic plan and risks including placement of additional IV's for access, A-line for hemodynamic monitoring and blood draws, possible blood transfusion, return to SICU postoperatively with probable mechanical ventilation due to the extensive nature of her planned spinal surgery. Patient verbalized understanding of the plan, risks, and signed consent on herown behalf to proceed with general anesthesia for planned procedure. Her EKG is sinus rhythm with aright bundle branch block and a left anterior fascicular block. 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 As mentioned above, patient is asymptomatic from an ischemic standpoint, and has no changes in medical management of her coronary disease per her report. I did mention that due to her previous cardiac disease, she is at a increased risk of perioperative cardiac andother morbidity. She verbalized understanding. Health Status Allergies: Allergic Reactions (Selected) NKA, Allergies (1) ActiveReaction NKANone Documented Current medications: (Selected) Inpatient Medications Ordered Colace: 100 mg, 1 cap(s), Oral, BID, PRN: Constipation Compazine: 5 mg, 1 mL, IV Push, q4h, PRN: as needed for nausea/vomiting Dextrose: 25 g, 50 mL, IV Push, AsDirected, PRN: Low blood sugar Dilaudid: 0.5 mg, 0.5 mL, IV Push, q3h, PRN: Pain, scale 7-10 HumuLIN R: sliding scale insulin, Subcutaneous, q4h, PRN: Protocol, glycemic control Insulin Regular for IV 100 unit(s) + NS Premix Diluent 100 mL: Sliding Scale Insulin, Intravenous Lopressor IV: 2.5 mg, 2.5 mL, IV Push, q6h Miralax Powder Packet: 17 gram(s), 15 mL, Oral, qDay, PRN: Constipation NS 1,000 mL: 50 mL/hr, Intravenous [place] 325- 5 mg oral tablet: 1 tab(s), Oral, q4h, PRN: Pain, scale 7-10 Protonix IV Push: 40 mg, IV Push, qDayAC Rocephin: 2 gram(s), 20 mL, 240 mL/hr, IV Push (INT), qDay Tylenol: 650 mg, 2 tab(s), Oral, q4h, PRN: Pain, scale 1-6 Vasotec: 0.625 mg, 0.5 mL, IV Push, BID Zofran: 4 mg, 2 mL, IV Push, q4h, PRN: Nausea/Vomiting atorvastatin: 10 mg, 1 tab(s), Oral, qHS ceFAZolin: 1 gram(s), 10 mL, 0 mL/hr, Topical (INT), PREOP pharm gabapentin: 300 mg, 1 cap(s), Oral, TID Prescriptions Prescribed Lasix 20 mg oral tablet: 20 mg, 1 tab(s), Oral, BID, 180 tab(s), 3 Refill(s) Myrbetriq 25 mg oral tablet, extended release: 25 mg, 1 tab(s), Oral, qDay, 90 tab(s), 3 Refill(s) diclofenac potassium 50 mg oral tablet: 50 mg, 1 tab(s), Oral, qDay, 90 tab(s), 3 Refill(s) dicyclomine 20 mg oral tablet: 20 mg, 1 tab(s), Oral, BID, for 90 day(s), 180 tab(s), 3 Refill(s) estradiol 0.1 mg/g vaginal cream: 1 appl, Vaginal, 2X/week, for 30 day(s), 42.5 gram(s), 11 Refill(s) glimepiride 4 mg oral tablet: 4 mg, 1 tab(s), Oral, qDay, 30 tab(s), 3 Refill(s) losartan 100 mg oral tablet: 100 mg, 1 tab(s), Oral, qDay, 90 tab(s), 3 Refill(s) metoprolol succinate 50 mg oral TABLET extended release: 50 mg, 1 tab(s), Oral, qDay, 90 tab(s), 3 Refill(s) omeprazole 20 mg oral delayed release capsule: 20 mg, 1 cap(s), Oral, qDayAC, PRN: abdominal discomfort, 90 cap(s), 3 Refill(s) oxybutynin 5 mg oral tablet: 5 mg, 1 tab(s), Oral, qDay, 90 tab(s), 3 Refill(s) simvastatin 10 mg oral tablet: 10 mg, 1 tab(s), Oral, qHS, 90 tab(s), 0 Refill(s) Documented Medications Documented aspirin 81 mg oral delayed release tablet: 81 mg, 1 tab(s), Oral, Daily, 0 Refill(s) gabapentin 300 mg oral capsule: 300 mg, 1 cap(s), Oral, TID, 0 Refill(s) nitroglycerin 0.4 mg sublingual tablet: 0.4 mg, 1 tab(s), Sublingual, q5min, Medications (18) Active Scheduled: (7) atorvastatin 10 mg tablet 10 mg 1 tab(s), Oral, qHS ceFAZolin 1 gram(s) 10 mL, Topical (INT), PREOP pharm cefTRIAXone IVP syringe 2 gram(s) 20 mL, IV Push (INT), qDay enalaprilat 1.25 mg/mL (2 mL) vial 0.625 mg 0.5 mL, IV Push, BID gabapentin 300 mg Capsule 300 mg 1 cap(s), Oral, TID metoprolol 1 mg/mL (5mL) vial 2.5 mg 2.5 mL, IV Push, q6h pantoprazole 40 mg VIAL 40 mg, IV Push, qDayAC Continuous: (2) insulin regular 100 unit(s) + NS Premix Diluent 100 mL 100 mL, Intravenous NS (0.9% nacl) 1,000 mL 1,000 mL, Intravenous, 50 mL/hr PRN: (9) acetaminophen 325 mg Tablet 650 mg 2 tab(s), Oral, q4h acetaminophen-HYDROcodone 325-5 mg tablet 1 tab(s), Oral, q4h dextrose 50% Solution Disp syringe 50 mL 25 g 50 mL, IV Push, AsDirected docusate sodium 100 mg Capsule 100 mg 1 cap(s), Oral, BID HYDROmorphone 0.5 mg/0.5 mL PF syringe 0.5 mg 0.5 mL, IV Push, q3h insulin regular human recombinant 100 units/mL (3 mL) Soln sliding scale insulin, Subcutaneous, q4h ondansetron 2 mg/ 1 mL 2 mL INJ 4 mg 2 mL, IV Push, q4h polyethylene glycol 3350 - UD packet 17 gram(s) 15 mL, Oral, qDay prochlorperazine 10 mg/2 mL vial 5 mg 1 mL, IV Push, q4h Problem list: Medical Chronic anemia / SNOMED CT 746919835 / Confirmed Chronic back pain / SNOMED CT 526018457 / Confirmed COPD / SNOMED CT 90390955 / Confirmed Hypertension, essential / SNOMED CT 85584031 / Confirmed GERD (gastroesophageal reflux disease) / SNOMED CT [id number] / Confirmed Goiter / SNOMED CT 0819335 / Confirmed Hyperlipidemia / SNOMED CT 47697807 / Confirmed Incontinence of urine / SNOMED CT 7580419336 / Confirmed, Active Problems (30) Anemia Arthritis Benign colon polyp Breast cancer Chest pain Chronic anemia Chronic back pain COPD Dependence on wheelchair Diabetes mellitus type 2 Diabetic neuropathy Diarrhea Dysphagia Edema of both lower extremities General weakness GERD (gastroesophageal reflux disease) Glasses Goiter Hard of hearing Heart attack History of radiation exposure Hx of thrombocytopenia Hyperlipidemia Hypertension, essential Incontinence of urine Osteoarthritis Oxygen dependent Pancreatic cyst Rheumatic fever Urinary incontinence Histories Past Medical History: Active COPD (76402164) Chronic back pain (336162349) Resolved H/O hypercholesterolemia (8502111716): Resolved. Hypernatremia (6498538043): Resolved. Family History: Heart disease Father Brother Arthritis Daughter Stroke Mother Cancer Sister HTN - Hypertension Mother GERD (gastroesophageal reflux disease) Daughter Diverticulitis Daughter Procedure history: None ([id number]). Appendectomy ([id number]). Comments: 08/11/2017 12:13 SHAMA BOLTON left water taken off Tubal ligation (163440114). Cholecystectomy (01075540). Arthroscopic knee operation (9518762529). Comments: 12/24/2019 13:16 SHAMA Gabriel right Lumpectomy of breast (8137496390). Comments: 12/24/2019 13:16 SHAMA Gabriel left Phacoemulsification of cataract with intraocular lens implantation ([id number]). Comments: 12/24/2019 13:16 SHAMA Gabriel both eyes Colonoscopy (139830018). Esophagogastroduodenoscopy (241988043). Cardiac catheter (1930133217). Comments: 12/24/2019 13:17 SHAMA Gabriel years ago Social History Social & Psychosocial Habits Alcohol 08/27/2019 Use: Never Substance Abuse 08/27/2019 Use: Never Tobacco 03/10/2020 Tobacco Use: Former smoker, quit more Exposure to Tobacco Smoke Lives with someone who sm Started at age: 17 Years Stopped at age: 49 Years Home/Environment 12/24/2019 Living situation: Home/Independent Lives In 1st floor bathroom, 1st floor bedroom, Multilevel home Current Home Treatments Blood Glucose monitoring, Oxygen therapy Marital Status of Patient if Patient Independent Adult: Nutrition/Health 08/27/2019 Caffeine intake amount: 2-3 servings of coffee daily 12/24/2019 Type of diet: Diabetic Appetite Good Eating Difficulties Swallowing . Physical Examination Vital Signs 07/13/2022 5:28 EDT Apical Heart Rate 114 bpm HI 07/13/2022 5:25 EDT Heart Rate Monitored 114 bpm HI Respiratory Rate 20 br/min Systolic Blood Pressure NBP 150 mmHg HI Diastolic Blood Pressure NBP 78 mmHg Mean Arterial Pressure (NBP) 95 mmHg Reason For Taking VItal Signs Routine 07/13/2022 3:52 EDT Temperature Oral 37.2 DegC Heart Rate Monitored 108 bpm HI Respiratory Rate 18 br/min Systolic Blood Pressure NBP 111 mmHg Diastolic Blood Pressure NBP 63 mmHg Mean Arterial Pressure (NBP) 74 mmHg Reason For Taking VItal Signs Routine 07/13/2022 1:45 EDT Heart Rate Monitored 114 bpm HI Respiratory Rate 18 br/min Systolic Blood Pressure NBP 119 mmHg Diastolic Blood Pressure NBP 46 mmHg <LLOW Mean Arterial Pressure (NBP) 64 mmHg Reason For Taking VItal Signs Routine 07/13/2022 0:00 EDT Apical Heart Rate Not Done: Physician Order (Not Done) 07/12/2022 23:52 EDT Temperature Oral 37.1 DegC Heart Rate Monitored 114 bpm HI Respiratory Rate 17 br/min Systolic Blood Pressure NBP 111 mmHg Diastolic Blood Pressure NBP 59 mmHg LOW Mean Arterial Pressure (NBP) 72 mmHg Reason For Taking VItal Signs Routine 07/12/2022 21:54 EDT Heart Rate Monitored 109 bpm HI Respiratory Rate 16 br/min Systolic Blood Pressure NBP 110 mmHg Diastolic Blood Pressure NBP 52 mmHg LOW Mean Arterial Pressure (NBP) 64 mmHg Reason For Taking VItal Signs Routine 07/12/2022 19:45 EDT Temperature Oral 37.7 DegC HI Heart Rate Monitored 127 bpm HI Respiratory Rate 22 br/min HI Systolic Blood Pressure NBP 135 mmHg Diastolic Blood Pressure NBP 59 mmHg LOW Mean Arterial Pressure (NBP) 76 mmHg Reason For Taking VItal Signs Routine 07/12/2022 18:06 EDT Apical Heart Rate 114 bpm HI 07/12/2022 18:01 EDT Heart Rate Monitored 113 bpm HI Respiratory Rate 19 br/min Systolic Blood Pressure NBP 135 mmHg Diastolic Blood Pressure NBP 61 mmHg Mean Arterial Pressure (NBP) 79 mmHg Reason For Taking VItal Signs Routine 07/12/2022 15:06 EDT Temperature Oral 37.2 DegC Heart Rate Monitored 118 bpm HI Respiratory Rate 20 br/min Systolic Blood Pressure NBP 154 mmHg HI Diastolic Blood Pressure NBP 90 mmHg HI Mean Arterial Pressure (NBP) 103 mmHg Reason For Taking VItal Signs Routine 07/12/2022 14:03 EDT Heart Rate Monitored 103 bpm HI Respiratory Rate 17 br/min Systolic Blood Pressure NBP 150 mmHg HI Diastolic Blood Pressure NBP 76 mmHg Mean Arterial Pressure (NBP) 92 mmHg 07/12/2022 13:06 EDT Heart Rate Monitored 101 bpm HI Respiratory Rate 16 br/min Systolic Blood Pressure NBP 136 mmHg Diastolic Blood Pressure NBP 55 mmHg LOW Mean Arterial Pressure (NBP) 76 mmHg Reason For Taking VItal Signs Routine 07/12/2022 12:03 EDT Heart Rate Monitored 96 bpm Respiratory Rate 16 br/min Systolic Blood Pressure NBP 141 mmHg HI Diastolic Blood Pressure NBP 61 mmHg Mean Arterial Pressure (NBP) 81 mmHg 07/12/2022 11:06 EDT Temperature Oral 37 DegC Apical Heart Rate 103 bpm HI Heart Rate Monitored 101 bpm HI Respiratory Rate 16 br/min Systolic Blood Pressure NBP 141 mmHg HI Diastolic Blood Pressure NBP 62 mmHg Mean Arterial Pressure (NBP) 81 mmHg Reason For Taking VItal Signs Routine 07/12/2022 10:24 EDT Heart Rate Monitored 104 bpm HI Respiratory Rate 14 br/min Systolic Blood Pressure NBP 136 mmHg Diastolic Blood Pressure NBP 57 mmHg LOW Mean Arterial Pressure (NBP) 76 mmHg Reason For Taking VItal Signs Routine 07/12/2022 10:00 EDT Heart Rate Monitored 100 bpm 07/12/2022 9:25 EDT Heart Rate Monitored 101 bpm HI Respiratory Rate 12 br/min LOW Systolic Blood Pressure NBP 141 mmHg HI Diastolic Blood Pressure NBP 60 mmHg Mean Arterial Pressure (NBP) 79 mmHg Reason For Taking VItal Signs Routine 07/12/2022 8:05 EDT Heart Rate Monitored 100 bpm Respiratory Rate 14 br/min Systolic Blood Pressure NBP 148 mmHg HI Diastolic Blood Pressure NBP 59 mmHg LOW Mean Arterial Pressure (NBP) 79 mmHg Reason For Taking VItal Signs Routine 07/12/2022 7:15 EDT Temperature Oral 37 DegC Heart Rate Monitored 110 bpm HI Respiratory Rate 16 br/min Systolic Blood Pressure NBP 152 mmHg HI Diastolic Blood Pressure NBP 69 mmHg Mean Arterial Pressure (NBP) 89 mmHg Reason For Taking VItal Signs Routine 07/12/2022 6:01 EDT Heart Rate Monitored 104 bpm HI Respiratory Rate 15 br/min Systolic Blood Pressure NBP 163 mmHg >HHI Diastolic Blood Pressure NBP 79 mmHg Mean Arterial Pressure (NBP) 97 mmHg Reason For Taking VItal Signs Routine 07/12/2022 3:05 EDT Temperature Oral 36.7 DegC Heart Rate Monitored 96 bpm Respiratory Rate 13 br/min LOW Systolic Blood Pressure NBP 143 mmHg HI Diastolic Blood Pressure NBP 65 mmHg Mean Arterial Pressure (NBP) 82 mmHg Reason For Taking VItal Signs Routine 07/12/2022 2:03 EDT Heart Rate Monitored 98 bpm Respiratory Rate 13 br/min LOW Systolic Blood Pressure NBP 139 mmHg Diastolic Blood Pressure NBP 66 mmHg Mean Arterial Pressure (NBP) 82 mmHg Reason For Taking VItal Signs Routine 07/12/2022 0:38 EDT Heart Rate Monitored 98 bpm Respiratory Rate 13 br/min LOW Systolic Blood Pressure NBP 138 mmHg Diastolic Blood Pressure NBP 76 mmHg Mean Arterial Pressure (NBP) 70 mmHg Vital Signs(last 24 hrs) Last Charted Temp Oral37.2 DegC (JUL 13 03:52) Heart Rate MonitoredH 114bpm (JUL 13 05:25) Resp Rate 20 br/min (JUL 13 05:25) SBPH 150mmHg (JUL 13 05:25) DBP78 mmHg (JUL 13 05:25) BMI36.25 (JUL 12 11:30) Measurements from flowsheet : Measurements 07/12/2022 11:30 EDT Height 165 cm (Modified) Height in inches 65 inch(es) (Modified) Admission Weight 98.7 kg (Modified) Weight Lbs 217.1 lb (Modified) [place] Body Weight 56.91 kg BSA Admission 2.05 (Modified) Body Mass Index 36.25 kg/m2 (Modified) Pain assessment: Pain Assessment 07/13/2022 5:25 EDT Primary Pain Location Head Primary Pain Intensity 6 Primary Pain Non-Pharma Intervention Lights dimmed, Repositioning Primary Pain Nonverbal Response Nods Yes Pain Scale Type 0-10 Pain scale 07/13/2022 3:52 EDT Primary Pain Intensity 0 Primary Pain Non-Pharma Intervention Repositioning Primary Pain Nonverbal Response Nods No Pain Scale Type 0-10 Pain scale 07/13/2022 1:45 EDT Primary Pain Intensity 0 Primary Pain Non-Pharma Intervention Repositioning Primary Pain Nonverbal Response Nods No Pain Scale Type 0-10 Pain scale 07/12/2022 23:52 EDT Primary Pain Intensity 0 Primary Pain Non-Pharma Intervention Repositioning Primary Pain Nonverbal Response Nods No Pain Scale Type 0-10 Pain scale 07/12/2022 21:54 EDT Primary Pain Intensity 0 Primary Pain Non-Pharma Intervention Repositioning Primary Pain Nonverbal Response Nods No Pain Scale Type 0-10 Pain scale 07/12/2022 20:57 EDT Pain Scale Assessment 0-10 Pain scale Primary Pain Location Generalized Primary Pain Intensity 0 07/12/2022 19:57 EDT Primary Pain Location Generalized Primary Pain Intensity 4 Primary Pain Quality Aching Primary Pain Pharma Intervention Medication Primary Pain Non-Pharma Intervention Repositioning Primary Pain Alleviating Factors In Error (In Error) Primary Pain Nonverbal Response Nods Yes Pain Scale Type 0-10 Pain scale 07/12/2022 19:45 EDT Primary Pain Location Generalized Primary Pain Intensity 4 Primary Pain Nonverbal Response Nods Yes Pain Scale Type 0-10 Pain scale 07/12/2022 18:01 EDT Primary Pain Location Generalized Primary Pain Intensity 2 Primary Pain Onset Gradual Primary Pain Quality Aching Primary Pain Non-Pharma Intervention Repositioning Primary Pain Alleviating Factors Repositioning Primary Pain Nonverbal Response Nods Yes Pain Scale Type 0-10 Pain scale 07/12/2022 15:06 EDT Primary Pain Location Generalized Primary Pain Intensity 2 Primary Pain Time Pattern acute Primary Pain Onset Gradual Primary Pain Quality Aching Primary Pain Non-Pharma Intervention Repositioning Primary Pain Alleviating Factors Medication Primary Pain Nonverbal Response Nods Yes Pain Scale Type 0-10 Pain scale 07/12/2022 13:06 EDT Primary Pain Location Generalized Primary Pain Intensity 2 Primary Pain Time Pattern acute Primary Pain Onset Gradual Primary Pain Quality Aching Primary Pain Non-Pharma Intervention Repositioning Primary Pain Alleviating Factors Repositioning Primary Pain Nonverbal Response Nods Yes Pain Scale Type 0-10 Pain scale 07/12/2022 11:06 EDT Primary Pain Location Generalized Primary Pain Intensity 4 Primary Pain Time Pattern acute Primary Pain Onset Gradual Primary Pain Quality Aching Primary Pain Non-Pharma Intervention Repositioning Primary Pain Alleviating Factors Medication, Repositioning Primary Pain Nonverbal Response Nods Yes Pain Scale Type 0-10 Pain scale 07/12/2022 9:25 EDT Primary Pain Location Generalized Primary Pain Time Pattern acute Primary Pain Onset Gradual Primary Pain Quality Aching Primary Pain Non-Pharma Intervention Repositioning Primary Pain Alleviating Factors Medication, Repositioning Primary Pain Nonverbal Response Nods Yes Pain Scale Type 0-10 Pain scale 07/12/2022 8:05 EDT Primary Pain Location Generalized Primary Pain Intensity 4 Primary Pain Quality Aching Primary Pain Non-Pharma Intervention Repositioning Primary Pain Alleviating Factors Medication, Repositioning Primary Pain Nonverbal Response Nods Yes Pain Scale Type 0-10 Pain scale 07/12/2022 7:15 EDT Primary Pain Location Generalized Primary Pain Intensity 5 Primary Pain Time Pattern acute Primary Pain Onset Gradual Primary Pain Quality Aching Primary Pain Non-Pharma Intervention Repositioning Primary Pain Alleviating Factors Medication, Repositioning Primary Pain Nonverbal Response Nods Yes Pain Scale Type 0-10 Pain scale 07/12/2022 6:43 EDT Primary Pain Intensity 10 07/12/2022 5:48 EDT Pain Scale Assessment 0-10 Pain scale Primary Pain Location Generalized Primary Pain Intensity 9 07/12/2022 5:18 EDT Primary Pain Intensity 10 07/12/2022 3:05 EDT Primary Pain Location Upper back Primary Pain Intensity 3 Primary Pain Nonverbal Response Nods Yes Pain Scale Type 0-10 Pain scale 07/12/2022 2:03 EDT Primary Pain Location Upper back Primary Pain Intensity 3 Primary Pain Quality Sharp Primary Pain Non-Pharma Intervention Lights dimmed, Noise reduction measures, Repositioning, Rest Pain Scale Type 0-10 Pain scale 07/12/2022 0:38 EDT Pain Scale Assessment 0-10 Pain scale Primary Pain Location Upper back Primary Pain Intensity 4 07/12/2022 0:08 EDT Primary Pain Intensity 7 . General: Alert and oriented, Mild distress. Airway: Normal mouth. Unable to examine: She is currently in a hard cervical spine immobilization device.. Mallampati classification: III (soft palate, base of uvula visible). Head: Normocephalic, Some abrasions about her face. Dentition Evaluation: Intact. Neck: Supple, Non-tender. Respiratory: Lungs are clear to auscultation, Respirations are non-labored. Cardiovascular: Normal rate, Regular rhythm. Heart Sounds: Normal. Neurologic: Alert, Oriented. Review / Management Results review: Labs (Last four charted values) WBC 8.0(JUL 13)8.2(JUL 12)6.8(JUL 11) Hgb L 11.0(JUL 13)L 11.6(JUL 12)L 11.0(JUL 11) Hct 34.3(JUL 13)36.6(JUL 12)34.6(JUL 11) Plt L 118(JUL 13)L 105(JUL 12)L 102(JUL 11) Na 143(JUL 13)145(JUL 12)144(JUL 11) K 3.9(JUL 13)4.6(JUL 12)4.8(JUL 11) CO2 H 39(JUL 13)H 35(JUL 12)C 40(JUL 11) Cl 100(JUL 13)103(JUL 12)101(JUL 11) Cr 0.66(JUL 13)0.65(JUL 12)0.66(JUL 11) BUN 16.0(JUL 13)14.0(JUL 12)18.0(JUL 11) Glucose H 139(JUL 13)H 138(JUL 12)H 147(JUL 11) Mg 1.8(JUL 12) Phos 4.3(JUL 12) Ca 9.3(JUL 13)9.2(JUL 12)9.5(JUL 11) PT 11.2(JUL 11) INR 0.9(JUL 11) PTT 28.8(JUL 11) , Lab results 07/13/2022 6:59 EDT Sodium Chloride 0.9% 400 mL mL 07/13/2022 6:49 EDT Urinary Elimination Urinary catheter draining IV Present Present Patient Dressed In Hospital gown CHG Preoperative Wash/Wipe Site specific wipe Preop Nasal Swab Povidone-Iodine 07/13/2022 6:13 EDT IHC At-Risk Indicator YES 07/13/2022 5:41 EDT Neurosurgery Rounding Note Progress Note 07/13/2022 5:41 EDT Mechanical VTE Prophylaxis Education Not Done: See ICU flow (Not Done) Mechanical VTE Prophylaxis Education Not Done: See ICU flow (Not Done) Sequential Compression Device Form Not Done (Not Done) Sequential Compression Device Form Not Done (Not Done) 07/13/2022 5:30 EDT IHC At-Risk Indicator YES 07/13/2022 5:28 EDT Apical Heart Rate 114 bpm HI metoprolol 2.5 mg mg pantoprazole 40 mg mg Sodium Chloride 0.9% Begin Bag 1,000 mL mL 07/13/2022 5:25 EDT Heart Rate Monitored 114 bpm HI Respiratory Rate 20 br/min Systolic Blood Pressure NBP 150 mmHg HI Diastolic Blood Pressure NBP 78 mmHg Mean Arterial Pressure (NBP) 95 mmHg Reason For Taking VItal Signs Routine Oral Care ICU Done Eye Care Done Primary Pain Location Head Primary Pain Intensity 6 Primary Pain Non-Pharma Intervention Lights dimmed, Repositioning Primary Pain Nonverbal Response Nods Yes Pain Scale Type 0-10 Pain scale Monitor Alarms On and Limits Checked Nail Bed Color [place] Capillary Refill < 2 seconds Heart Sounds ICU S1S2 Heart Rhythm Regular Dorsalis Pedis Pulse, Left 1+ Thready Dorsalis Pedis Pulse, Right 1+ Thready Posttibial Pulse, Left 1+ Thready Posttibial Pulse, Right 1+ Thready Radial Pulse, Left 2+ Normal Radial Pulse, Right 2+ Normal Edema Generalized None Cardiac Rhythm Sinus tachycardia Monitoring Lead II, V1/MCL1 Alarms On and Functional Yes Heart Rate Alarm Set At - Low 50 Heart Rate Alarm Set At - High 120 NSBP Alarm Low 110 NSBP Alarm High 160 HI Respirations Unlabored Respiratory Pattern Regular Nasal Symptoms None Breath Sounds Auscultated Anterior only All Lobes Breath Sounds Clear, Diminished Cough and Deep Breathe Done Cough None Oxygen Therapy Nasal cannula 0L-6L Oxygen Saturation 96 % Oxygen Flow Rate 4 Tracheal Position Midline Abdomen Description Non-distended Abdomen Palpation Non-Tender Bowel Sounds All Quadrants Present Urinary Elimination Urinary catheter draining Urine Color Yellow Urine Description Medium amount Urinary Elimination Devices Indwelling catheter Urethral Indwelling/Continuous 16 Fr 07/12/2022 Urinary Catheter Indication: Order for Strict I&O Urinary Catheter Activity: Assessed Urinary Catheter Secured: Securement device on Urinary Catheter Drainage System: Dependent drainage bag Urinary Catheter Site Condition: No complications Facial Movement Makes facial grimaces Skin Symptoms Bruising All Extremity Description [place] Skin Temperature Warm Temperature All Extremities Warm Skin Description [place], Normal for ethnicity Skin Integrity Not intact Skin Turgor Non-Elastic Mucous Membrane Color [place] Mucous Membrane Description Moist Nose Anterior Skin Abnormality Type: Abrasion Incision, Wound Dressing/Activity: Open to air Wound Status: No complications IV Present Present Continuous IV Infusions NS@50 Neurological Language Able to speak clearly Neurological Symptoms Drowsiness, Numbness Gait Unable to assess Extremity Movement Equal Swallowing Difficulty None Characteristics of Communication Appropriate Characteristics of Speech Clear Facial Symmetry Symmetric Level of Consciousness Arousable with minimal stimulation Eye Opening Response Zeke To voice Best Motor Response [place] simple commands Best Verbal Response Zeke Oriented Zeke Coma Score 14 YANICK Yes Left Pupil Description Regular Right Pupil Description Regular Left Pupil Reaction Brisk Right Pupil Reaction Brisk Pupil Size, Left 5 mm Pupil Size, Right 5 mm Strength All Extremities Moderate Left Upper Extremity Sensation Numbness Right Upper Extremity Sensation Intact Left Lower Extremity Sensation Numbness Right Lower Extremity Sensation Intact CN V Facial Sensation Corneal reflex present CN VII Facial Expression and Symmetry Facial movement symmetrical CN IX, X Swallowing, Gag Reflex Swallowing present Affect/Behavior Appropriate, Calm, Cooperative Orientation Oriented x 4 Resident Care Aid On Yes Patient Dressed In Hospital gown CHG Preoperative Wash/Wipe Day of procedure Activity Status ADL Repositions self Beds/Devices Fluid immersion bed Assistive Equipment elevated on pillows Activity Assistance Maximum assistance SCD On/Re-applied bilateral knee high Preventative Foam Drsg Location coccyx Standard Safety ID band on, Call device within reach, Bed in low position, Wheels locked, Upper/Half-Length side-rails up, Phone within reach, personal items within reach High Risk Safety Room check performed Special Call Device Special device provided Demonstrates Correct Call Light Use Yes COVID 19 Surge in Effect Yes Degrees Head of Bed Elevated 0 Last Fluid Intake 07/12/2022 23:55 Last Food Intake 07/12/2022 23:55 Stool Count 0 EA 07/13/2022 4:57 EDT WBC 8.0 10^3/mcL RBC 3.76 10^6/mcL LOW Hgb 11.0 G/dL LOW Hct 34.3 % MCV 91.2 fL MCH 29.3 pg MCHC 32.1 G/dL RDW 14.5 % Platelet 118 10^3/mcL LOW MPV 6.0 fL LOW Neutrophil % 82.2 % HI Lymphocyte % 10.4 % LOW Monocyte % 6.6 % Eosinophil % 0.4 % Basophil % 0.4 % Neutrophil, Absolute 6.6 10^3/mcL Lymphocyte, Absolute 0.8 10^3/mcL LOW Monocyte, Absolute 0.5 10^3/mcL Eosinophil, Absolute 0.0 10^3/mcL Basophil, Absolute 0.0 10^3/mcL Glucose Level 139 mg/dL HI Sodium Level 143 mEq/L Potassium Level 3.9 mEq/L Chloride 100 mEq/L CO2 39 mEq/L HI Electrolyte Balance 4.0 mEq/L BUN 16.0 mg/dL Creatinine Lvl (s) 0.66 mg/dL BUN/Creatinine Ratio 24.2 ratio HI Calcium Lvl 9.3 mg/dL GFR Non- >60 ml/min/1.73sqm NA GFR >60 ml/min/1.73sqm NA Creatinine Clearance Calc 69.22 mL/min 07/13/2022 4:21 EDT IHC At-Risk Indicator YES 07/13/2022 4:20 EDT IHC At-Risk Indicator YES 07/13/2022 4:18 EDT Mechanical VTE Prophylaxis Education Not Done: See ICU flow (Not Done) Mechanical VTE Prophylaxis Education Not Done: See ICU flow (Not Done) Sequential Compression Device Form Not Done (Not Done) Sequential Compression Device Form Not Done (Not Done) 07/13/2022 3:52 EDT Temperature Oral 37.2 DegC Heart Rate Monitored 108 bpm HI Respiratory Rate 18 br/min Systolic Blood Pressure NBP 111 mmHg Diastolic Blood Pressure NBP 63 mmHg Mean Arterial Pressure (NBP) 74 mmHg Reason For Taking VItal Signs Routine Oral Care ICU Done Eye Care Done Primary Pain Intensity 0 Primary Pain Non-Pharma Intervention Repositioning Primary Pain Nonverbal Response Nods No Pain Scale Type 0-10 Pain scale Monitor Alarms On and Limits Checked Nail Bed Color Oppelo Capillary Refill < 2 seconds Heart Sounds ICU S1S2 Heart Rhythm Regular Dorsalis Pedis Pulse, Left 1+ Thready Dorsalis Pedis Pulse, Right 1+ Thready Posttibial Pulse, Left 1+ Thready Posttibial Pulse, Right 1+ Thready Radial Pulse, Left 2+ Normal Radial Pulse, Right 2+ Normal Edema Generalized None Cardiac Rhythm Sinus tachycardia Monitoring Lead II, V1/MCL1 PA Interval 0.16 second(s) QRS Duration 0.09 second(s) QT Interval 0.42 second(s) QTc Interval 0.49 second(s) Alarms On and Functional Yes Heart Rate Alarm Set At - Low 50 Heart Rate Alarm Set At - High 120 NSBP Alarm Low 110 NSBP Alarm High 160 HI Respirations Unlabored Respiratory Pattern Regular Nasal Symptoms None Breath Sounds Auscultated Anterior only All Lobes Breath Sounds Clear, Diminished Cough and Deep Breathe Done Cough None Oxygen Therapy Nasal cannula 0L-6L Oxygen Saturation 98 % Oxygen Flow Rate 4 Tracheal Position Midline Abdomen Description Non-distended Abdomen Palpation Non-Tender, Soft Bowel Sounds All Quadrants Present Urinary Elimination Urinary catheter draining Urine Color Yellow Urine Description Medium amount Urinary Elimination Devices Indwelling catheter Urethral Indwelling/Continuous 16 Fr 07/12/2022 Urinary Catheter Indication: Order not to remove Urinary Catheter Activity: Assessed Urinary Catheter Secured: Securement device on Urinary Catheter Drainage System: Dependent drainage bag Urinary Catheter Site Condition: No complications Facial Movement Makes facial grimaces Skin Symptoms Bruising All Extremity Description Opp[place] Skin Temperature Warm Temperature All Extremities Warm Skin Description [place], Normal for ethnicity Skin Integrity Not intact Skin Turgor Non-Elastic Mucous Membrane Color [place] Mucous Membrane Description Moist Nose Anterior Skin Abnormality Type: Abrasion Incision, Wound Dressing/Activity: Open to air Wound Status: No complications Continuous IV Infusions NS@50 Neurological Language Able to speak clearly Neurological Symptoms Drowsiness, Numbness Gait Unable to assess Extremity Movement Equal Swallowing Difficulty None Characteristics of Communication Appropriate Characteristics of Speech Clear Facial Symmetry Symmetric Level of Consciousness Arousable with minimal stimulation Eye Opening Response Zeke To voice Best Motor Response Zeke Obeys simple commands Best Verbal Response [place] Coma Score 14 YANICK Yes Left Pupil Description Regular Right Pupil Description Regular Left Pupil Reaction Brisk Right Pupil Reaction Brisk Pupil Size, Left 5 mm Pupil Size, Right 5 mm Strength All Extremities Moderate Left Upper Extremity Sensation Numbness Right Upper Extremity Sensation Intact Left Lower Extremity Sensation Numbness Right Lower Extremity Sensation Intact CN V Facial Sensation Corneal reflex present CN VII Facial Expression and Symmetry Facial movement symmetrical CN IX, X Swallowing, Gag Reflex Swallowing present Violence Risk Confused No Violence Risk Irritable No Violence Risk Boisterous No Violence Risk Verbal Threats No Violence Risk Physical Threats No Violence Risk Attacking Objects No Violence Risk Predictor Score 0 Violence Risk Intervention None Violence Risk Current Interventions None Affect/Behavior Appropriate, Calm, Cooperative Orientation Oriented x 4 Activity Status ADL Repositioned left side Beds/Devices Fluid immersion bed Assistive Equipment elevated on pillows Activity Assistance Maximum assistance SCD On/Re-applied bilateral knee high Preventative Foam Drsg Location coccyx Standard Safety ID band on, Call device within reach, Bed in low position, Wheels locked, Upper/Half-Length side-rails up, Phone within reach, personal items within reach, Safety level maintained High Risk Safety Room check performed Special Call Device Special device provided Demonstrates Correct Call Light Use Yes COVID 19 Surge in Effect Yes Degrees Head of Bed Elevated 0 Stool Count 0 EA 07/13/2022 1:45 EDT Heart Rate Monitored 114 bpm HI Respiratory Rate 18 br/min Systolic Blood Pressure NBP 119 mmHg Diastolic Blood Pressure NBP 46 mmHg <LLOW Mean Arterial Pressure (NBP) 64 mmHg Reason For Taking VItal Signs Routine Primary Pain Intensity 0 Primary Pain Non-Pharma Intervention Repositioning Primary Pain Nonverbal Response Nods No Pain Scale Type 0-10 Pain scale Monitor Alarms On and Limits Checked Nail Bed Color Oppelo Capillary Refill < 2 seconds Heart Sounds ICU S1S2 Heart Rhythm Regular Dorsalis Pedis Pulse, Left 1+ Thready Dorsalis Pedis Pulse, Right 1+ Thready Posttibial Pulse, Left 1+ Thready Posttibial Pulse, Right 1+ Thready Radial Pulse, Left 2+ Normal Radial Pulse, Right 2+ Normal Edema Generalized None Cardiac Rhythm Sinus tachycardia Monitoring Lead II, V1/MCL1 Alarms On and Functional Yes Heart Rate Alarm Set At - Low 50 Heart Rate Alarm Set At - High 120 NSBP Alarm Low 110 NSBP Alarm High 160 HI Respirations Unlabored Respiratory Pattern Regular Nasal Symptoms None Breath Sounds Auscultated Anterior only All Lobes Breath Sounds Diminished Cough and Deep Breathe Done Cough None Oxygen Therapy Nasal cannula 0L-6L Oxygen Saturation 97 % Oxygen Flow Rate 4 Tracheal Position Midline Abdomen Description Non-distended Abdomen Palpation Non-Tender, Soft Bowel Sounds All Quadrants Present Urinary Elimination Urinary catheter draining Urine Color Yellow Urine Description Medium amount Urinary Elimination Devices Indwelling catheter Urethral Indwelling/Continuous 16 Fr 07/12/2022 Urinary Catheter Indication: Order for Strict I&O Urinary Catheter Activity: Assessed Urinary Catheter Secured: Securement device on Urinary Catheter Drainage System: Dependent drainage bag Urinary Catheter Site Condition: No complications Facial Movement Makes facial grimaces Skin Symptoms Bruising All Extremity Description Opp[place] Skin Temperature Warm Temperature All Extremities Warm Skin Description [place], Normal for ethnicity Skin Integrity Not intact Skin Turgor Elastic Mucous Membrane Color [place] Mucous Membrane Description Moist Nose Anterior Skin Abnormality Type: Abrasion Incision, Wound Dressing/Activity: Open to air (Modified) Wound Status: No complications Continuous IV Infusions NS@50 Neurological Language Able to speak clearly Neurological Symptoms Drowsiness, Numbness Gait Unable to assess Extremity Movement Equal Swallowing Difficulty None Characteristics of Communication Appropriate Characteristics of Speech Clear Facial Symmetry Symmetric Level of Consciousness Arousable with minimal stimulation Eye Opening Response [place] To voice Best Motor Response [place] O[place]ys simple commands Best Verbal Response Zeke Oriented Zeke Coma Score 14 YANICK Yes Left Pupil Description Regular Right Pupil Description Regular Left Pupil Reaction Brisk Right Pupil Reaction Brisk Pupil Size, Left 5 mm Pupil Size, Right 5 mm Strength All Extremities Moderate Left Upper Extremity Sensation Numbness Right Upper Extremity Sensation Intact Left Lower Extremity Sensation Numbness Right Lower Extremity Sensation Intact CN V Facial Sensation Corneal reflex present CN VII Facial Expression and Symmetry Facial movement symmetrical CN IX, X Swallowing, Gag Reflex Swallowing present Affect/Behavior Appropriate, Calm, Cooperative Orientation Oriented x 4 Activity Status ADL Repositioned right side Beds/Devices Fluid immersion bed Assistive Equipment elevated on pillows Activity Assistance Maximum assistance SCD On/Re-applied bilateral knee high Preventative Foam Drsg Location coccyx Standard Safety ID band on, Call device within reach, Bed in low position, Wheels locked, Upper/Half-Length side-rails up, Phone within reach, personal items within reach, Safety level maintained High Risk Safety Room check performed Special Call Device Special device provided Demonstrates Correct Call Light Use Yes COVID 19 Surge in Effect Yes Degrees Head of Bed Elevated 0 Stool Count 0 EA 07/13/2022 0:43 EDT Able To Drink Order Detail Yes Able To Sign Consents Order Detail Yes Code Status Order Detail Full code IV Order Detail Yes Dialysis Schedule Order Detail N/A Has Diabetes Order Detail Yes Isolation Precautions Order Detail None Nurse Collect Order Detail 0 Oxygen Order Detail Yes Order Detail N/A Prior Valve Replacement Order Detail No Transport Mode Order Detail Bed Nurse and Monitor Commercial Real Estate Manager Details Form Commercial Real Estate Manager Details Form 07/13/2022 0:40 EDT Notify date/time 07/13/2022 0:40 Provider Notified [place] Notification Method Phone Information Communicated Lab results Details Communicated ABG pH 7.34 BP 108/50 Notification Outcome Orders received Details of Results Received hold metoprolol 07/13/2022 0:01 EDT Oxygen Therapy Nasal cannula 0L-6L Oxygen Flow Rate 4 Blood Gas Drawn From Right Radial Artery Site Held by RT Jovon Test Positive 07/13/2022 0:00 EDT pH 7.340 LOW pCO2 76.0 mm Hg CRIT pO2 121.5 mm Hg HI HCO3 40.1 mmol/L HI CO2 Totl 42.4 mmol/L CRIT Base Excess 11.6 mmol/L NA O2 Sat 98.8 % HI Barometric Pressure 705 mm Hg NA Apical Heart Rate Not Done: Physician Order (Not Done) metoprolol Not Done: Physician Order (Not Done) 07/12/2022 23:52 EDT Blood Glucose, Capillary 137 mg/dL HI Blood Glucose Testing Reason Routine Temperature Oral 37.1 DegC Heart Rate Monitored 114 bpm HI Respiratory Rate 17 br/min Systolic Blood Pressure NBP 111 mmHg Diastolic Blood Pressure NBP 59 mmHg LOW Mean Arterial Pressure (NBP) 72 mmHg Reason For Taking VItal Signs Routine Oral Care ICU Done Eye Care Done Primary Pain Intensity 0 Primary Pain Non-Pharma Intervention Repositioning Primary Pain Nonverbal Response Nods No Pain Scale Type 0-10 Pain scale Monitor Alarms On and Limits Checked Nail Bed Color Oppelo Capillary Refill < 2 seconds Heart Sounds ICU S1S2 Heart Rhythm Regular Dorsalis Pedis Pulse, Left 1+ Thready Dorsalis Pedis Pulse, Right 1+ Thready Posttibial Pulse, Left 1+ Thready Posttibial Pulse, Right 1+ Thready Radial Pulse, Left 2+ Normal Radial Pulse, Right 2+ Normal Edema Generalized None Cardiac Rhythm Sinus tachycardia Monitoring Lead II, V1/MCL1 PA Interval 0.13 second(s) QRS Duration 0.08 second(s) QT Interval 0.38 second(s) QTc Interval 0.47 second(s) Alarms On and Functional Yes Heart Rate Alarm Set At - Low 50 Heart Rate Alarm Set At - High 120 NSBP Alarm Low 110 NSBP Alarm High 160 HI Respirations Unlabored Respiratory Pattern Regular Breath Sounds Auscultated Anterior only All Lobes Breath Sounds Clear, Diminished Cough None Oxygen Therapy Nasal cannula 0L-6L Oxygen Saturation 98 % Oxygen Flow Rate 4 Tracheal Position Midline Abdomen Description Non-distended Abdomen Palpation Non-Tender Bowel Sounds All Quadrants Present Urinary Elimination Urinary catheter draining Urine Color Yellow Urine Description Medium amount Urinary Elimination Devices Indwelling catheter Urethral Indwelling/Continuous 16 Fr 07/12/2022 Urinary Catheter Indication: Order for Strict I&O Urinary Catheter Activity: Assessed Urinary Catheter Secured: Securement device on Urinary Catheter Drainage System: Dependent drainage bag Urinary Catheter Site Condition: No complications Facial Movement Makes facial grimaces Skin Symptoms Bruising All Extremity Description Opp[place] Skin Temperature Warm Temperature All Extremities Warm Skin Description [place], Normal for ethnicity Skin Integrity Not intact Skin Turgor Non-Elastic Mucous Membrane Color [place] Mucous Membrane Description Moist Nose Anterior Skin Abnormality Type: Abrasion Incision, Wound Dressing/Activity: Open to air Wound Status: No complications Continuous IV Infusions NS@50 Forearm Right 18 gauge Peripheral IV Activity: Assessed Peripheral IV Dressing Condition: Clean, Dry, Intact Peripheral IV Dressing Activity: Transparent dressing Peripheral IV Line Status/Patency: Flushes easily Peripheral IV Line Care: Secured with tape Peripheral IV Site Condition: No complications Peripheral IV Equipment: IV Pump Neurological Language Able to speak clearly Neurological Symptoms Drowsiness, Numbness (Modified) Gait Unable to assess Extremity Movement Equal Swallowing Difficulty None Characteristics of Communication Appropriate Characteristics of Speech Clear Facial Symmetry Symmetric Level of Consciousness Arousable with minimal stimulation Eye Opening Response [place] To voice Best Motor Response Zeke Obeys simple commands Best Verbal Response [place] Oriented Zeke Coma Score 14 YANICK Yes Left Pupil Description Regular Right Pupil Description Regular Left Pupil Reaction Brisk Right Pupil Reaction Brisk Pupil Size, Left 5 mm Pupil Size, Right 5 mm Strength All Extremities Moderate Left Upper Extremity Sensation Numbness Right Upper Extremity Sensation Intact Left Lower Extremity Sensation Numbness Right Lower Extremity Sensation Intact CN V Facial Sensation Corneal reflex present CN VII Facial Expression and Symmetry Facial movement symmetrical CN IX, X Swallowing, Gag Reflex Swallowing present Violence Risk Confused No Violence Risk Irritable No Violence Risk Boisterous No Violence Risk Verbal Threats No Violence Risk Physical Threats No Violence Risk Attacking Objects No Violence Risk Predictor Score 0 Violence Risk Intervention None Violence Risk Current Interventions None Affect/Behavior Appropriate, Calm, Cooperative Orientation Oriented x 4 Activity Status ADL Repositioned back Beds/Devices Fluid immersion bed Assistive Equipment elevated on pillows Activity Assistance Maximum assistance SCD On/Re-applied bilateral knee high Preventative Foam Drsg Location coccyx Standard Safety ID band on, Call device within reach, Bed in low position, Wheels locked, Upper/Half-Length side-rails up, Phone within reach, personal items within reach, Assistive devices within reach, Safety level maintained High Risk Safety Room check performed Special Call Device Special device provided Demonstrates Correct Call Light Use Yes COVID 19 Surge in Effect Yes Degrees Head of Bed Elevated 0 Stool Count 0 EA 07/12/2022 23:03 EDT Urethral Indwelling/Continuous 16 Fr 07/12/2022 Urinary Catheter Care Completed: Yes 07/12/2022 23:00 EDT Urethral Indwelling/Continuous 16 Fr 07/12/2022 Urinary Catheter Output: 425 mL Oral Intake 0 mL 07/12/2022 22:59 EDT Sodium Chloride 0.9% 400 mL mL 07/12/2022 22:59 EDT IV Present Present Resident Care Aid On Yes Patient Dressed In Hospital gown Pre-op Preparation Preop linens changed CHG Preoperative Wash/Wipe Night before procedure 07/12/2022 22:00 EDT gabapentin Not Done: Physician Order (Not Done) 07/12/2022 21:55 EDT atorvastatin 10 mg mg enalapril 0.625 mg mg 07/12/2022 21:54 EDT Heart Rate Monitored 109 bpm HI Respiratory Rate 16 br/min Systolic Blood Pressure NBP 110 mmHg Diastolic Blood Pressure NBP 52 mmHg LOW Mean Arterial Pressure (NBP) 64 mmHg Reason For Taking VItal Signs Routine Oral Care ICU Done Primary Pain Intensity 0 Primary Pain Non-Pharma Intervention Repositioning Primary Pain Nonverbal Response Nods No Pain Scale Type 0-10 Pain scale Monitor Alarms On and Limits Checked Nail Bed Color Opp[place] Capillary Refill < 2 seconds Heart Sounds ICU S1S2 Heart Rhythm Regular Dorsalis Pedis Pulse, Left 1+ Thready Dorsalis Pedis Pulse, Right 1+ Thready Posttibial Pulse, Left 1+ Thready Posttibial Pulse, Right 1+ Thready Radial Pulse, Left 2+ Normal Radial Pulse, Right 2+ Normal Edema Generalized None Cardiac Rhythm Sinus tachycardia Monitoring Lead II, V1/MCL1 Alarms On and Functional Yes Heart Rate Alarm Set At - Low 50 Heart Rate Alarm Set At - High 120 NSBP Alarm Low 110 NSBP Alarm High 160 HI Respirations Unlabored Respiratory Pattern Regular Breath Sounds Auscultated Anterior only All Lobes Breath Sounds Clear, Diminished Oxygen Therapy Nasal cannula 0L-6L Oxygen Saturation 93 % Oxygen Flow Rate 4 Tracheal Position Midline Abdomen Description Non-distended Abdomen Palpation Non-Tender, Soft Bowel Sounds All Quadrants Present Urinary Elimination Urinary catheter draining Urine Color Yellow Urine Description Medium amount Urinary Elimination Devices Indwelling catheter Urethral Indwelling/Continuous 16 Fr 07/12/2022 Urinary Catheter Indication: Order for Strict I&O Urinary Catheter Activity: Assessed Urinary Catheter Secured: Securement device on Urinary Catheter Drainage System: Dependent drainage bag Urinary Catheter Site Condition: No complications Facial Movement Makes facial grimaces Skin Symptoms Bruising All Extremity Description Opp[place] Skin Temperature Warm Temperature All Extremities Warm Skin Description [place], Normal for ethnicity Skin Integrity Not intact Skin Turgor Elastic Mucous Membrane Color [place] Mucous Membrane Description Moist Nose Anterior Skin Abnormality Type: Abrasion Incision, Wound Dressing/Activity: Open to air Wound Status: No complications Continuous IV Infusions NS@50 Forearm Right 18 gauge Peripheral IV Activity: Assessed Peripheral IV Site Condition: No complications Peripheral IV Equipment: IV Pump Neurological Language Able to speak clearly, Follows simple commands Neurological Symptoms Numbness Gait Unable to assess Extremity Movement Equal Swallowing Difficulty None Characteristics of Communication Appropriate Characteristics of Speech Clear Facial Symmetry Symmetric Level of Consciousness Arousable with minimal stimulation Eye Opening Response [place] To voice Best Motor Response Zeke Obeys simple commands Best Verbal Response Zeke Oriented [place] Coma Score 14 YANICK Yes Left Pupil Description Regular Right Pupil Description Regular Left Pupil Reaction Brisk Right Pupil Reaction Brisk Pupil Size, Left 3 mm Pupil Size, Right 3 mm Strength All Extremities Moderate Left Upper Extremity Sensation Numbness Right Upper Extremity Sensation Intact Left Lower Extremity Sensation Numbness Right Lower Extremity Sensation Intact CN V Facial Sensation Corneal reflex present CN VII Facial Expression and Symmetry Facial movement symmetrical CN IX, X Swallowing, Gag Reflex Swallowing present Affect/Behavior Appropriate, Calm, Cooperative Orientation Oriented x 4 Activity Status ADL Repositioned left side Beds/Devices Fluid immersion bed Assistive Equipment elevated on pillows Activity Assistance Maximum assistance SCD On/Re-applied bilateral knee high Standard Safety ID band on, Call device within reach, Bed in low position, Wheels locked, Upper/Half-Length side-rails up, Phone within reach, personal items within reach, Assistive devices within reach, Safety level maintained High Risk Safety Identified as high risk, Room check performed Special Call Device Special device provided Demonstrates Correct Call Light Use Yes COVID 19 Surge in Effect Yes Degrees Head of Bed Elevated 0 Stool Count 0 EA 07/12/2022 21:05 EDT Mechanical VTE Prophylaxis Education Not Done: See ICU flow (Not Done) Mechanical VTE Prophylaxis Education Not Done: See ICU flow (Not Done) Sequential Compression Device Form Not Done (Not Done) Sequential Compression Device Form Not Done (Not Done) 07/12/2022 20:57 EDT Pain Scale Assessment 0-10 Pain scale Primary Pain Location Generalized Primary Pain Intensity 0 Reason for PRN medication Pain management PRN medication effectiveness Yes PRN Medication Effectiveness Evaluation PRN Medication Effectiveness Evaluation 07/12/2022 20:47 EDT IHC At-Risk Indicator YES 07/12/2022 19:57 EDT Primary Pain Location Generalized Primary Pain Intensity 4 Primary Pain Quality Aching Primary Pain Pharma Intervention Medication Primary Pain Non-Pharma Intervention Repositioning Primary Pain Alleviating Factors In Error (In Error) Primary Pain Nonverbal Response Nods Yes Pain Scale Type 0-10 Pain scale Nail Bed Color Oppelo Capillary Refill < 2 seconds Dorsalis Pedis Pulse, Left 1+ Thready Dorsalis Pedis Pulse, Right 1+ Thready Posttibial Pulse, Left 1+ Thready Posttibial Pulse, Right 1+ Thready Radial Pulse, Left 2+ Normal Radial Pulse, Right 2+ Normal Edema Generalized None Cardiac Rhythm Sinus tachycardia Monitoring Lead II, V1/MCL1 Alarms On and Functional Yes Heart Rate Alarm Set At - Low 50 Heart Rate Alarm Set At - High 120 NSBP Alarm Low 110 NSBP Alarm High 160 HI Respirations Unlabored Respiratory Pattern Regular Nasal Symptoms None Breath Sounds Auscultated Anterior only All Lobes Breath Sounds Clear, Diminished Cough and Deep Breathe Done Cough None Tracheal Position Midline Abdomen Description Non-distended, Soft Abdomen Palpation Non-Tender Bowel Sounds All Quadrants Present Urinary Elimination Urinary catheter draining Urine Color Yellow Urine Description Medium amount Urinary Elimination Devices Indwelling catheter Urethral Indwelling/Continuous 16 Fr 07/12/2022 Urinary Catheter Indication: Order for Strict I&O Urinary Catheter Activity: Assessed Urinary Catheter Secured: Securement device on Urinary Catheter Drainage System: Dependent drainage bag Urinary Catheter Site Condition: No complications Facial Movement Makes facial grimaces Skin Symptoms Bruising All Extremity Description Opp[place] Skin Temperature Warm Temperature All Extremities Warm Skin Description [place], Normal for ethnicity Skin Integrity Not intact Skin Turgor Elastic Mucous Membrane Color [place] Mucous Membrane Description Moist Nose Anterior Skin Abnormality Type: Abrasion Incision, Wound Dressing/Activity: Open to air Wound Status: No complications Forearm Right 18 gauge Peripheral IV Activity: Assessed Peripheral IV Dressing Condition: Clean, Dry, Intact Peripheral IV Dressing Activity: Transparent dressing Peripheral IV Line Status/Patency: Flushes easily Peripheral IV Site Condition: No complications Peripheral IV Equipment: IV Pump Neurological Language Able to speak clearly Neurological Symptoms Numbness Gait Unable to assess Extremity Movement Equal Swallowing Difficulty None Characteristics of Communication Appropriate Characteristics of Speech Clear Facial Symmetry Symmetric Level of Consciousness Arousable with minimal stimulation Eye Opening Response Zeke To voice Best Motor Response Zeke Obeys simple commands Best Verbal Response [place] Oriented Zeke Coma Score 14 YANICK Yes Left Pupil Description Regular Right Pupil Description Regular Left Pupil Reaction Brisk Right Pupil Reaction Brisk Pupil Size, Left 3 mm Pupil Size, Right 3 mm Strength All Extremities Moderate Left Upper Extremity Sensation Numbness Right Upper Extremity Sensation Intact Left Lower Extremity Sensation Numbness Right Lower Extremity Sensation Intact CN V Facial Sensation Corneal reflex present CN VII Facial Expression and Symmetry Facial movement symmetrical CN IX, X Swallowing, Gag Reflex Swallowing present CAM Mental Status Change & Fluctuation No CAM Inattention No CAM Disorganized Thinking No CAM Altered Level of Consciousness Unable to determine Confusion Assessment Method Score Negative Affect/Behavior Appropriate, Calm, Cooperative Orientation Oriented x 4 Activity Status ADL Repositioned right side Beds/Devices Fluid immersion bed Assistive Equipment elevated on pillows Activity Assistance Maximum assistance SCD On/Re-applied bilateral knee high Standard Safety ID band on, Call device within reach, Bed in low position, Wheels locked, Upper/Half-Length side-rails up, Phone within reach, personal items within reach, Safety level maintained High Risk Safety Room check performed Special Call Device Special device provided Demonstrates Correct Call Light Use Yes COVID 19 Surge in Effect Yes acetaminophen 650 mg mg Degrees Head of Bed Elevated 0 Stool Count 0 EA 07/12/2022 19:45 EDT Blood Glucose, Capillary 155 mg/dL HI Blood Glucose Testing Reason Routine Temperature Oral 37.7 DegC HI Heart Rate Monitored 127 bpm HI Respiratory Rate 22 br/min HI Systolic Blood Pressure NBP 135 mmHg Diastolic Blood Pressure NBP 59 mmHg LOW Mean Arterial Pressure (NBP) 76 mmHg Reason For Taking VItal Signs Routine Oral Care ICU Done Eye Care Done Primary Pain Location Generalized Primary Pain Intensity 4 Primary Pain Nonverbal Response Nods Yes Pain Scale Type 0-10 Pain scale Monitor Alarms On and Limits Checked Heart Sounds ICU S1S2 Heart Rhythm Regular Oxygen Therapy Nasal cannula 0L-6L Oxygen Saturation 90 % LOW Oxygen Flow Rate 4 Continuous IV Infusions NS@50 07/12/2022 18:20 EDT IPOC Alteration in Urinary Elimination Yes 07/12/2022 18:06 EDT Apical Heart Rate 114 bpm HI metoprolol 2.5 mg mg 07/12/2022 18:01 EDT Heart Rate Monitored 113 bpm HI Respiratory Rate 19 br/min Systolic Blood Pressure NBP 135 mmHg Diastolic Blood Pressure NBP 61 mmHg Mean Arterial Pressure (NBP) 79 mmHg Reason For Taking VItal Signs Routine Primary Pain Location Generalized Primary Pain Intensity 2 Primary Pain Onset Gradual Primary Pain Quality Aching Primary Pain Non-Pharma Intervention Repositioning Primary Pain Alleviating Factors Repositioning Primary Pain Nonverbal Response Nods Yes Pain Scale Type 0-10 Pain scale Nail Bed Color Oppelo Capillary Refill < 2 seconds Heart Rhythm Regular Dorsalis Pedis Pulse, Left 1+ Thready Dorsalis Pedis Pulse, Right 1+ Thready Posttibial Pulse, Left 1+ Thready Posttibial Pulse, Right 1+ Thready Edema Generalized None Cardiac Rhythm Sinus tachycardia, Bundle branch block Respirations Unlabored Respiratory Pattern Regular Breath Sounds Auscultated Anterior only All Lobes Breath Sounds Clear, Diminished Oxygen Therapy Nasal cannula 0L-6L Oxygen Saturation 97 % Oxygen Flow Rate 4 Tracheal Position Midline Abdomen Description Soft Abdomen Palpation Non-Tender Bowel Sounds All Quadrants Present Urinary Elimination Urinary catheter draining Urine Color Yellow Urine Description Medium amount Urinary Elimination Devices Indwelling catheter Urethral Indwelling/Continuous 16 Fr 07/12/2022 Urinary Catheter Indication: Order for Strict I&O Urinary Catheter Activity: Assessed Urinary Catheter Secured: Securement device on Urinary Catheter Drainage System: Dependent drainage bag Urinary Catheter Site Condition: No complications Facial Movement Makes facial grimaces Special Orthopedic Devices Brace Orthopedic Device Location Neck Special Orthopedic Device Use On Skin Symptoms Bruising All Extremity Description Oppelo Skin Temperature Warm Temperature All Extremities Warm Skin Description Oppelo, Normal for ethnicity Skin Integrity Not intact Skin Turgor Elastic Mucous Membrane Color Oppelo Mucous Membrane Description Moist Nose Anterior Skin Abnormality Type: Abrasion Incision, Wound Dressing/Activity: Open to air Wound Status: No complications Continuous IV Infusions NS @ 50ml/hr Forearm Right 18 gauge Peripheral IV Site Condition: No complications Neurological Language Able to speak clearly Neurological Symptoms Numbness Gait Unable to assess Extremity Movement Equal Swallowing Difficulty None Characteristics of Communication Appropriate Characteristics of Speech Clear Facial Symmetry Symmetric Level of Consciousness Arousable with minimal stimulation Eye Opening Response [place] To voice Best Motor Response [place] O[place]ys simple commands Best Verbal Response Zeke Oriented Zeke Coma Score 14 YANICK Yes Left Pupil Description Regular Right Pupil Description Regular Left Pupil Reaction Brisk Right Pupil Reaction Brisk Pupil Size, Left 3 mm Pupil Size, Right 3 mm Strength All Extremities Moderate Left Upper Extremity Sensation Numbness Right Upper Extremity Sensation Intact Left Lower Extremity Sensation Numbness Right Lower Extremity Sensation Intact CN V Facial Sensation Corneal reflex present CN VII Facial Expression and Symmetry Facial movement symmetrical CN IX, X Swallowing, Gag Reflex Swallowing present Affect/Behavior Appropriate Orientation Oriented x 4 Orthotics, Device Worn Per Schedule Yes Orientation Assessment Oriented x 4 Mechanical VTE Prophylaxis Education Not Done: See ICU flow (Not Done) Mechanical VTE Prophylaxis Education Not Done: See ICU flow (Not Done) Activity Status ADL Repositioned back Beds/Devices Fluid immersion bed Assistive Equipment elevated on pillows Activity Assistance Maximum assistance SCD On/Re-applied bilateral knee high Standard Safety ID band on, Call device within reach, Bed in low position, Wheels locked, Upper/Half-Length side-rails up, personal items within reach, Safety level maintained High Risk Safety Identified as high risk, Fall ID band on, Room located near nursing station, Door open, Room check performed, High risk door magnet present Special Call Device Special device provided Demonstrates Correct Call Light Use Yes Degrees Head of Bed Elevated 0 Sequential Compression Device Form Not Done (Not Done) Sequential Compression Device Form Not Done (Not Done) 07/12/2022 17:34 EDT IHC At-Risk Indicator YES 07/12/2022 17:12 EDT IHC At-Risk Indicator YES 07/12/2022 17:00 EDT IHC At-Risk Indicator YES 07/12/2022 16:47 EDT Notify date/time 07/12/2022 16:47 Provider Notified [place] Notification Method Face to face conversation Information Communicated Lab Critical Result(s) Details Communicated ABG results Notification Outcome Orders received Person Reporting Result(s) Gerardo Suarez, RN Oxygen Therapy Nasal cannula 0L-6L Oxygen Flow Rate 4 Blood Gas Drawn From Left Radial Artery Site Held by RT Jovon Test Positive 07/12/2022 16:46 EDT pH 7.320 LOW pCO2 76.7 mm Hg CRIT pO2 115.0 mm Hg HI HCO3 38.6 mmol/L HI CO2 Totl 41.0 mmol/L CRIT Base Excess 9.9 mmol/L NA O2 Sat 98.5 % HI Barometric Pressure 705 mm Hg NA 07/12/2022 16:34 EDT IHC At-Risk Indicator YES 07/12/2022 16:15 EDT IHC At-Risk Indicator YES 07/12/2022 15:59 EDT Main OR Intraop Record Main OR Intraop Record 07/12/2022 15:58 EDT SN - CTm - Surgery Start 07/12/2022 15:58 SN - CTm - Surgery Stop 07/12/2022 15:59 07/12/2022 15:57 EDT SN - CAt - Case Attendee SN - CAt - Case Attendee SN - CAt - Role Performed Assisting Surgeon 07/12/2022 15:57 EDT SN - Proc - Anesthesia Type None SN - Proc - EBL 0 mL SN - Proc - Actual Procedure CASE CANCELLED BY PHYSICIAN (Modified) 07/12/2022 15:55 EDT SN - GCD - ASA Class None SN - GCD - Post-operative Diagnosis CASE CANCELLED BY PHYSICIAN (Modified) SN - GCD - Case Level None (Modified) 07/12/2022 15:45 EDT gabapentin 300 mg mg 07/12/2022 15:42 EDT Transition Planning Note Transition Planning Initial Assessment 07/12/2022 15:39 EDT IHC At-Risk Indicator YES 07/12/2022 15:39 EDT IHC At-Risk Indicator YES 07/12/2022 15:31 EDT Able To Drink Order Detail Yes Able To Sign Consents Order Detail Yes Code Status Order Detail Full code IV Order Detail Yes Dialysis Schedule Order Detail N/A Has Diabetes Order Detail Yes Isolation Precautions Order Detail None Nurse Collect Order Detail 0 Oxygen Order Detail Yes Order Detail N/A Prior Valve Replacement Order Detail No Transport Mode Order Detail Bed Nurse and Monitor Commercial Real Estate Manager Details Form Commercial Real Estate Manager Details Form 07/12/2022 15:18 EDT SN - Assess - Post-op Skin Integrity Intact/Dry 07/12/2022 15:09 EDT SN - Assess - LOC Alert, Awake 07/12/2022 15:06 EDT Blood Glucose, Capillary 135 mg/dL HI Blood Glucose Testing Reason Routine Temperature Oral 37.2 DegC Heart Rate Monitored 118 bpm HI Respiratory Rate 20 br/min Systolic Blood Pressure NBP 154 mmHg HI Diastolic Blood Pressure NBP 90 mmHg HI Mean Arterial Pressure (NBP) 103 mmHg Reason For Taking VItal Signs Routine Primary Pain Location Generalized Primary Pain Intensity 2 Primary Pain Time Pattern acute Primary Pain Onset Gradual Primary Pain Quality Aching Primary Pain Non-Pharma Intervention Repositioning Primary Pain Alleviating Factors Medication Primary Pain Nonverbal Response Nods Yes Pain Scale Type 0-10 Pain scale Nail Bed Color Oppelo Capillary Refill < 2 seconds Heart Rhythm Regular Dorsalis Pedis Pulse, Left 1+ Thready Dorsalis Pedis Pulse, Right 1+ Thready Posttibial Pulse, Left 1+ Thready Posttibial Pulse, Right 1+ Thready Radial Pulse, Left 2+ Normal Radial Pulse, Right 2+ Normal Edema Generalized None Cardiac Rhythm Bundle branch block Cardiac Rhythm Sinus tachycardia Monitoring Lead II PA Interval 0.13 second(s) QRS Duration 0.12 second(s) QT Interval 0.37 second(s) QTc Interval 0.49 second(s) Alarms On and Functional Yes Heart Rate Alarm Set At - Low 50 Heart Rate Alarm Set At - High 120 NSBP Alarm Low 110 NSBP Alarm High 160 HI Respirations Unlabored Respiratory Pattern Regular Breath Sounds Auscultated Anterior only All Lobes Breath Sounds Clear, Diminished Oxygen Therapy Nasal cannula 0L-6L Oxygen Saturation 94 % Oxygen Flow Rate 4 Tracheal Position Midline Abdomen Description Soft Abdomen Palpation Non-Tender Bowel Sounds All Quadrants Present Urinary Elimination Urinary catheter draining Urine Color Yellow Urine Description Medium amount Urinary Elimination Devices Indwelling catheter Urethral Indwelling/Continuous 16 Fr 07/12/2022 Urinary Catheter Indication: Order for Strict I&O Urinary Catheter Activity: Assessed Urinary Catheter Secured: Securement device on Urinary Catheter Drainage System: Dependent drainage bag Urinary Catheter Site Condition: No complications Facial Movement Makes facial grimaces Special Orthopedic Devices Brace Orthopedic Device Location Neck Special Orthopedic Device Use On Skin Symptoms Bruising All Extremity Description Oppelo Skin Temperature Warm Temperature All Extremities Warm Skin Description [place], Normal for ethnicity Skin Integrity Not intact Skin Turgor Elastic Mucous Membrane Color [place] Mucous Membrane Description Moist Nose Anterior Skin Abnormality Type: Abrasion Incision, Wound Dressing/Activity: Open to air Wound Status: No complications Continuous IV Infusions NS @ 50ml/hr Forearm Right 18 gauge Peripheral IV Activity: Assessed Peripheral IV Dressing Condition: Clean, Dry, Intact Peripheral IV Dressing Activity: Transparent dressing Peripheral IV Line Status/Patency: Flushes easily Peripheral IV Site Condition: No complications Peripheral IV Equipment: IV Pump Neurological Language Able to speak clearly Neurological Symptoms Numbness Gait Unable to assess Extremity Movement Equal Swallowing Difficulty None Characteristics of Communication Appropriate Characteristics of Speech Clear Facial Symmetry Symmetric Level of Consciousness Arousable with minimal stimulation Eye Opening Response [place] Spontaneously Best Motor Response [place] O[place]ys simple commands Best Verbal Response [place] Oriented Zeke Coma Score 15 YANICK Yes Left Pupil Description Regular Right Pupil Description Regular Left Pupil Reaction Brisk Right Pupil Reaction Brisk Pupil Size, Left 3 mm Pupil Size, Right 3 mm Strength All Extremities Moderate Left Upper Extremity Sensation Numbness Right Upper Extremity Sensation Intact Left Lower Extremity Sensation Numbness Right Lower Extremity Sensation Intact CN V Facial Sensation Corneal reflex present CN VII Facial Expression and Symmetry Facial movement symmetrical CN IX, X Swallowing, Gag Reflex Swallowing present Violence Risk Confused No Violence Risk Irritable No Violence Risk Boisterous No Violence Risk Verbal Threats No Violence Risk Physical Threats No Violence Risk Attacking Objects No Violence Risk Predictor Score 0 Violence Risk Intervention None Violence Risk Current Interventions None Affect/Behavior Appropriate Orientation Oriented x 4 Orthotics, Device Worn Per Schedule Yes Activity Status ADL Repositioned left side Beds/Devices Fluid immersion bed Assistive Equipment facial support dressing Activity Assistance Maximum assistance SCD On/Re-applied bilateral knee high Standard Safety ID band on, Call device within reach, Bed in low position, Wheels locked, Upper/Half-Length side-rails up, Phone within reach, personal items within reach, Safety level maintained High Risk Safety Identified as high risk, Fall ID band on, Room located near nursing station, Door open, Room check performed Special Call Device Special device provided Demonstrates Correct Call Light Use Yes Degrees Head of Bed Elevated 0 07/12/2022 15:00 EDT Urethral Indwelling/Continuous 16 Fr 07/12/2022 Urinary Catheter Output: 800 mL Oral Intake 200 mL 07/12/2022 14:59 EDT Sodium Chloride 0.9% 400 mL mL 07/12/2022 14:03 EDT Heart Rate Monitored 103 bpm HI Respiratory Rate 17 br/min Systolic Blood Pressure NBP 150 mmHg HI Diastolic Blood Pressure NBP 76 mmHg Mean Arterial Pressure (NBP) 92 mmHg Oxygen Saturation 98 % Standard Safety ID band on, Call device within reach, Bed in low position, Wheels locked, Upper/Half-Length side-rails up, Phone within reach, personal items within reach, Safety level maintained High Risk Safety Identified as high risk, Fall ID band on, Room located near nursing station, Door open, Room check performed 07/12/2022 13:06 EDT Heart Rate Monitored 101 bpm HI Respiratory Rate 16 br/min Systolic Blood Pressure NBP 136 mmHg Diastolic Blood Pressure NBP 55 mmHg LOW Mean Arterial Pressure (NBP) 76 mmHg Reason For Taking VItal Signs Routine Primary Pain Location Generalized Primary Pain Intensity 2 Primary Pain Time Pattern acute Primary Pain Onset Gradual Primary Pain Quality Aching Primary Pain Non-Pharma Intervention Repositioning Primary Pain Alleviating Factors Repositioning Primary Pain Nonverbal Response Nods Yes Pain Scale Type 0-10 Pain scale Nail Bed Color Oppelo Capillary Refill < 2 seconds Heart Rhythm Regular Dorsalis Pedis Pulse, Left 1+ Thready Dorsalis Pedis Pulse, Right 1+ Thready Posttibial Pulse, Left 1+ Thready Posttibial Pulse, Right 1+ Thready Edema Generalized None Cardiac Rhythm Bundle branch block Cardiac Rhythm Sinus tachycardia Monitoring Lead II Respirations Unlabored Respiratory Pattern Regular Breath Sounds Auscultated Anterior only All Lobes Breath Sounds Clear, Diminished Oxygen Therapy Nasal cannula 0L-6L Oxygen Saturation 95 % Oxygen Flow Rate 4 Tracheal Position Midline Abdomen Description Soft Abdomen Palpation Non-Tender Bowel Sounds All Quadrants Present Urethral Indwelling/Continuous 16 Fr 07/12/2022 Urinary Catheter Site Condition: No complications Facial Movement Makes facial grimaces Special Orthopedic Devices Brace Orthopedic Device Location Neck Special Orthopedic Device Use On Skin Symptoms Bruising All Extremity Description Oppelo Skin Temperature Warm Temperature All Extremities Warm Skin Description Opp[place], Normal for ethnicity Skin Integrity Not intact Skin Turgor Elastic Mucous Membrane Color [place] Mucous Membrane Description Moist Continuous IV Infusions NS @ 50ml/hr Forearm Right 18 gauge Peripheral IV Site Condition: No complications Neurological Language Able to speak clearly Neurological Symptoms Numbness Gait Unable to assess Extremity Movement Equal Swallowing Difficulty None Characteristics of Communication Appropriate Characteristics of Speech Clear Facial Symmetry Symmetric Level of Consciousness Arousable with minimal stimulation Eye Opening Response [place] Spontaneously Best Motor Response [place] simple commands Best Verbal Response Zeke Oriented Zeke Coma Score 15 YANICK Yes Left Pupil Description Regular Right Pupil Description Regular Left Pupil Reaction Brisk Right Pupil Reaction Brisk Pupil Size, Left 3 mm Pupil Size, Right 3 mm Strength All Extremities Moderate Left Upper Extremity Sensation Numbness Right Upper Extremity Sensation Intact Left Lower Extremity Sensation Numbness Right Lower Extremity Sensation Intact CN V Facial Sensation Corneal reflex present CN VII Facial Expression and Symmetry Facial movement symmetrical CN IX, X Swallowing, Gag Reflex Swallowing present Affect/Behavior Appropriate Orientation Oriented x 4 Orthotics, Device Worn Per Schedule Yes Orientation Assessment Oriented x 4 Mechanical VTE Prophylaxis Education Not Done: Not Appropriate at this Time (Not Done) Mechanical VTE Prophylaxis Education Not Done: See ICU flow (Not Done) Activity Status ADL Repositioned right side Beds/Devices Fluid immersion bed Assistive Equipment elevated on pillows Activity Assistance Maximum assistance SCD On/Re-applied bilateral knee high Standard Safety ID band on, Call device within reach, Bed in low position, Wheels locked, Upper/Half-Length side-rails up, Safety level maintained High Risk Safety Identified as high risk, Fall ID band on, Room located near nursing station, Door open, Room check performed Demonstrates Correct Call Light Use Yes Degrees Head of Bed Elevated 0 Sequential Compression Device Form Not Done (Not Done) Sequential Compression Device Form Not Done (Not Done) 07/12/2022 12:17 EDT IHC At-Risk Indicator YES 07/12/2022 12:03 EDT Heart Rate Monitored 96 bpm Respiratory Rate 16 br/min Systolic Blood Pressure NBP 141 mmHg HI Diastolic Blood Pressure NBP 61 mmHg Mean Arterial Pressure (NBP) 81 mmHg Oxygen Saturation 96 % Standard Safety ID band on, Call device within reach, Bed in low position, Wheels locked, Upper/Half-Length side-rails up, Phone within reach, personal items within reach, Safety level maintained High Risk Safety Identified as high risk, Fall ID band on, Room located near nursing station, Door open, Room check performed 07/12/2022 11:39 EDT IPOC Impaired Communication Yes 07/12/2022 11:30 EDT Designated Person #1 We May Share PHI Armani Ramirez no phone (Modified) Designated Person #1 Relationship Spouse (Modified) Designated Person #2 We May Share AALIYAH Oakley [phone] Designated Person #2 Relationship Daughter Privacy Restrictions Requested None (Modified) Height 165 cm (Modified) Height in inches 65 inch(es) (Modified) Admission Weight 98.7 kg (Modified) Weight Lbs 217.1 lb (Modified) [place] Body Weight 56.91 kg BSA Admission 2.05 (Modified) Body Mass Index 36.25 kg/m2 (Modified) Patient Type Inpatient (Modified) Thrombosis Risk Factors (2) Age 61-75 years old (Modified) Thrombosis Risk Factor Add'l Assessment NA (Modified) Thrombosis Risk Score 2 (Modified) Status N/A (Modified) Do You Wish/Go to Sleep/Never Wake Up No (Modified) Thoughts of Harming Others - History No (Modified) Thoughts of Suicide - History No (Modified) Hospital Clergy to Visit Patient Verbalizes No Spiritual Needs (Modified) Sensory Deficits None (Modified) Advanced Directives Yes (Modified) Advance Directive Type [place] Declaration (Living Will) (Modified) Advance Directive Location Family instructed to bring in copy (Modified) Infectious Disease Symptoms Patient states no symptoms (Modified) Infectious Disease Recent Exposure No (Modified) Alcohol and Drug Use No (Modified) Employee of Institutional Living No (Modified) Health Care Employee No (Modified) History of Exposure to TB No (Modified) History of Positive Chest X-Ray for TB No (Modified) History of Positive TB Skin Test No (Modified) Homeless No (Modified) Known Immunosuppression No (Modified) Recent Immigrant No (Modified) Resident of Institutional Living No (Modified) Bloody Sputum No (Modified) Fatigue No (Modified) Fever No (Modified) Loss of Appetite No (Modified) Night Sweats No (Modified) Persistent Cough > 3 Weeks No (Modified) Weight Loss No (Modified) Safety Brochure Information Reviewed Yes (Modified) Vaishali Busch Video Viewed Yes (Modified) Barriers to Learning None evident (Modified) Teaching Method Explanation (Modified) Teaching Evaluation Verbalizes/Nonverbally indicates understanding (Modified) Preferred Written Language [place] (Modified) Preferred Spoken Language [place] (Modified) Information Given by Patient (Modified) Patient's Current Physicians Patient's Current Physicians (Modified) Belongings At Bedside Shorts (Modified) Belongings Sent Home None (Modified) Belongings Sent To Security None (Modified) Discharge To, Anticipated Home independently (Modified) Prev Test Positive/Diagnosis w/COVID-19 No (Modified) Current Quarantine/Isolated any Illness No (Modified) Any Contact with Sick Animals/Birds No (Modified) Traveled Anywhere in Last 30 Days No (Modified) Lost Weight Unintentionally Recently No (Modified) Eat Poorly Due to Decreased Appetite No (Modified) Total MST Score 0 (Modified) N/A (Modified) Personal Devices, Patient Valuables None (Modified) Personal Home Medications Received No home medications were brought in (Modified) Admission Note-Nursing Patient History (Modified) 07/12/2022 11:25 EDT IHC At-Risk Indicator YES 07/12/2022 11:06 EDT Blood Glucose, Capillary 156 mg/dL HI Blood Glucose Testing Reason Routine Temperature Oral 37 DegC Apical Heart Rate 103 bpm HI Heart Rate Monitored 101 bpm HI Respiratory Rate 16 br/min Systolic Blood Pressure NBP 141 mmHg HI Diastolic Blood Pressure NBP 62 mmHg Mean Arterial Pressure (NBP) 81 mmHg Reason For Taking VItal Signs Routine Primary Pain Location Generalized Primary Pain Intensity 4 Primary Pain Time Pattern acute Primary Pain Onset Gradual Primary Pain Quality Aching Primary Pain Non-Pharma Intervention Repositioning Primary Pain Alleviating Factors Medication, Repositioning Primary Pain Nonverbal Response Nods Yes Pain Scale Type 0-10 Pain scale Nail Bed Color Oppelo Capillary Refill < 2 seconds Heart Sounds ICU S1S2 Heart Rhythm Regular Dorsalis Pedis Pulse, Left 1+ Thready Dorsalis Pedis Pulse, Right 1+ Thready Posttibial Pulse, Left 1+ Thready Posttibial Pulse, Right 1+ Thready Edema Generalized None Cardiac Rhythm Bundle branch block Cardiac Rhythm Sinus tachycardia Monitoring Lead II PA Interval 0.14 second(s) QRS Duration 0.12 second(s) QT Interval 0.35 second(s) QTc Interval 0.43 second(s) Alarms On and Functional Yes Heart Rate Alarm Set At - Low 50 Heart Rate Alarm Set At - High 120 NSBP Alarm Low 110 NSBP Alarm High 160 HI Respirations Unlabored Respiratory Pattern Regular Breath Sounds Auscultated Anterior only All Lobes Breath Sounds Clear, Diminished Oxygen Therapy Nasal cannula 0L-6L Oxygen Saturation 95 % Oxygen Flow Rate 4 Tracheal Position Midline Abdomen Description Soft Abdomen Palpation Non-Tender Bowel Sounds All Quadrants Present Urinary Elimination Urinary catheter draining Urine Color Yellow Urine Description Medium amount, Clear Urinary Elimination Devices Indwelling catheter Urethral Indwelling/Continuous 16 Fr 07/12/2022 Urinary Catheter Indication: Order for Strict I&O Urinary Catheter Activity: Assessed Urinary Catheter Secured: Securement device on Urinary Catheter Drainage System: Dependent drainage bag Urinary Catheter Site Condition: No complications Special Orthopedic Devices Brace Orthopedic Device Location Neck Special Orthopedic Device Use On Skin Symptoms Bruising All Extremity Description Oppelo Skin Temperature Warm Temperature All Extremities Warm Skin Description Oppelo, Normal for ethnicity Skin Integrity Not intact Skin Turgor Elastic Mucous Membrane Color Oppelo Mucous Membrane Description Moist Nose Anterior Skin Abnormality Type: Abrasion Incision, Wound Dressing/Activity: Open to air Wound Status: No complications Continuous IV Infusions NS @ 50ml/hr Forearm Right 18 gauge Peripheral IV Activity: Assessed Peripheral IV Dressing Condition: Clean, Dry, Intact Peripheral IV Dressing Activity: Transparent dressing Peripheral IV Line Status/Patency: Flushes easily Peripheral IV Site Condition: No complications Peripheral IV Equipment: IV Pump Strength All Extremities Moderate Left Upper Extremity Sensation Numbness Right Upper Extremity Sensation Intact Left Lower Extremity Sensation Numbness Right Lower Extremity Sensation Intact Orthotics, Device Worn Per Schedule Yes Activity Status ADL Repositioned back Beds/Devices Fluid immersion bed Assistive Equipment elevated on pillows Activity Assistance Maximum assistance SCD On/Re-applied bilateral knee high Standard Safety ID band on, Call device within reach, Bed in low position, Wheels locked, Upper/Half-Length side-rails up, personal items within reach, Safety level maintained High Risk Safety Identified as high risk, Fall ID band on, Room located near nursing station, Door open, Room check performed Special Call Device Special device provided Demonstrates Correct Call Light Use Yes metoprolol 2.5 mg mg Sodium Chloride 0.9% Begin Bag 1,000 mL mL Degrees Head of Bed Elevated 0 07/12/2022 10:24 EDT Heart Rate Monitored 104 bpm HI Respiratory Rate 14 br/min Systolic Blood Pressure NBP 136 mmHg Diastolic Blood Pressure NBP 57 mmHg LOW Mean Arterial Pressure (NBP) 76 mmHg Reason For Taking VItal Signs Routine Oxygen Saturation 100 % 07/12/2022 10:22 EDT enalapril 0.625 mg mg 07/12/2022 10:00 EDT Heart Rate Monitored 100 bpm Family Member Notified dtr [facility] Family Notified Via Phone Details Communicated to Family Member multiple attempts to call [facility], no answer, no voicemail, will keep trying. phone disconnected. pt has no other numbers to call family. 07/12/2022 9:57 EDT IHC At-Risk Indicator YES 07/12/2022 9:48 EDT Critical Care Consultation Consult Note 07/12/2022 9:44 EDT IHC At-Risk Indicator YES 07/12/2022 9:42 EDT IHC At-Risk Indicator YES 07/12/2022 9:39 EDT IHC At-Risk Indicator YES 07/12/2022 9:35 EDT Batres Screen Daily History of Fall in Last 3 Months Batres Yes Presence of Secondary Diagnosis Batres Yes Use of Ambulatory Aid Batres None, bedrest, wheelchair, nurse IV/PRN Adapter Fall Risk Batres Yes Gait Weak or Impaired Fall Risk Batres Normal, bedrest, immobile Mental Status Fall Risk Batres Oriented to own ability Batres Fall Risk Score 60 HI BMAT Existing Patient Condition/Safety Strict bedrest Individuals Taught Patient Learning Readiness Willing to learn Barriers to Learning Acuity of illness Teaching Method Explanation Teaching Evaluation Needs reinforcement Education Topics Fall Prevention Alarms, Conventional call light use 07/12/2022 9:25 EDT Heart Rate Monitored 101 bpm HI Respiratory Rate 12 br/min LOW Systolic Blood Pressure NBP 141 mmHg HI Diastolic Blood Pressure NBP 60 mmHg Mean Arterial Pressure (NBP) 79 mmHg Reason For Taking VItal Signs Routine Primary Pain Location Generalized Primary Pain Time Pattern acute Primary Pain Onset Gradual Primary Pain Quality Aching Primary Pain Non-Pharma Intervention Repositioning Primary Pain Alleviating Factors Medication, Repositioning Primary Pain Nonverbal Response Nods Yes Pain Scale Type 0-10 Pain scale Nail Bed Color Oppelo Capillary Refill < 2 seconds Dorsalis Pedis Pulse, Left 1+ Thready Dorsalis Pedis Pulse, Right 1+ Thready Posttibial Pulse, Left 1+ Thready Posttibial Pulse, Right 1+ Thready Edema Generalized None Cardiac Rhythm Bundle branch block Cardiac Rhythm Sinus tachycardia Monitoring Lead II Respirations Unlabored Respiratory Pattern Regular Breath Sounds Auscultated Anterior only All Lobes Breath Sounds Clear, Diminished Oxygen Therapy Nasal cannula 0L-6L Oxygen Saturation 94 % Oxygen Flow Rate 4 (Modified) Tracheal Position Midline Abdomen Description Soft Abdomen Palpation Non-Tender Bowel Sounds All Quadrants Present Facial Movement Makes facial grimaces Special Orthopedic Devices Brace Orthopedic Device Location Neck Special Orthopedic Device Use On Skin Symptoms Bruising All Extremity Description Oppelo Skin Temperature Warm Temperature All Extremities Warm Skin Description Oppelo, Normal for ethnicity Skin Integrity Not intact Skin Turgor Elastic Mucous Membrane Color Oppelo Mucous Membrane Description Moist Nose Anterior Wound Status: No complications Continuous IV Infusions NS @ 50ml/hr Neurological Language Able to speak clearly Neurological Symptoms Numbness Gait Unable to assess Extremity Movement Equal Swallowing Difficulty None Characteristics of Communication Appropriate Characteristics of Speech Clear Facial Symmetry Symmetric Level of Consciousness Arousable with minimal stimulation Eye Opening Response Zeke Spontaneously Best Motor Response Zeke Obeys simple commands Best Verbal Response Zeke Oriented [place] Coma Score 15 YANICK Yes Left Pupil Description Regular Right Pupil Description Regular Left Pupil Reaction Brisk Right Pupil Reaction Brisk Pupil Size, Left 3 mm Pupil Size, Right 3 mm Strength All Extremities Moderate Left Upper Extremity Sensation Numbness Right Upper Extremity Sensation Intact Left Lower Extremity Sensation Numbness Right Lower Extremity Sensation Intact CN V Facial Sensation Corneal reflex present CN VII Facial Expression and Symmetry Facial movement symmetrical CN IX, X Swallowing, Gag Reflex Swallowing present Affect/Behavior Appropriate Orientation Oriented x 4 Orthotics, Device Worn Per Schedule Yes Mechanical VTE Prophylaxis Education Not Done: See ICU flow (Not Done) Mechanical VTE Prophylaxis Education Not Done: See ICU flow (Not Done) Activity Status ADL Repositioned left side Beds/Devices Fluid immersion bed Assistive Equipment elevated on pillows Activity Assistance Maximum assistance SCD On/Re-applied bilateral knee high Standard Safety ID band on, Call device within reach, Bed in low position, Wheels locked, Upper/Half-Length side-rails up, Phone within reach, personal items within reach, Safety level maintained High Risk Safety Identified as high risk, Room located near nursing station, Door open, Room check performed Demonstrates Correct Call Light Use Yes Degrees Head of Bed Elevated 0 Sequential Compression Device Form Not Done (Not Done) Sequential Compression Device Form Not Done (Not Done) 07/12/2022 9:13 EDT IHC At-Risk Indicator YES 07/12/2022 8:51 EDT ceftriaxone 2 gram(s) gram(s) gabapentin 300 mg mg 07/12/2022 8:34 EDT XR Chest 1 View XR CHEST 1 VIEW 07/12/2022 8:20 EDT Able To Drink Order Detail Yes Able To Sign Consents Order Detail Yes Code Status Order Detail Full code IV Order Detail Yes Dialysis Schedule Order Detail N/A Has Diabetes Order Detail Yes Isolation Precautions Order Detail None Nurse Collect Order Detail 0 Oxygen Order Detail Yes Order Detail N/A Prior Valve Replacement Order Detail No Transport Mode Order Detail Bed Nurse and Monitor Commercial Real Estate Manager Details Form Commercial Real Estate Manager Details Form 07/12/2022 8:15 EDT Magnesium Lvl 1.8 mg/dL Phosphorus 4.3 mg/dL Calcium Ionized 1.13 mmol/L 07/12/2022 8:13 EDT IHC At-Risk Indicator YES 07/12/2022 8:05 EDT Heart Rate Monitored 100 bpm Respiratory Rate 14 br/min Systolic Blood Pressure NBP 148 mmHg HI Diastolic Blood Pressure NBP 59 mmHg LOW Mean Arterial Pressure (NBP) 79 mmHg Reason For Taking VItal Signs Routine Primary Pain Location Generalized Primary Pain Intensity 4 Primary Pain Quality Aching Primary Pain Non-Pharma Intervention Repositioning Primary Pain Alleviating Factors Medication, Repositioning Primary Pain Nonverbal Response Nods Yes Pain Scale Type 0-10 Pain scale Oxygen Therapy Nasal cannula 0L-6L Oxygen Saturation 96 % Oxygen Flow Rate 6 Urinary Elimination Urinary catheter draining Urine Color Yellow Urine Description Medium amount, Cloudy Urinary Elimination Devices Indwelling catheter Urethral Indwelling/Continuous 16 Fr 07/12/2022 Urinary Catheter Indication: Order for Strict I&O Urinary Catheter Activity: Insert new catheter Urinary Catheter Secured: Securement device on Urinary Catheter Drainage System: Dependent drainage bag Urinary Catheter Site Condition: No complications Urinary Catheter Care Completed: Yes Standard Safety ID band on, Call device within reach, Bed in low position, Wheels locked, Upper/Half-Length side-rails up, Phone within reach, personal items within reach, Safety level maintained High Risk Safety Room check performed 07/12/2022 7:43 EDT IHC At-Risk Indicator YES 07/12/2022 7:42 EDT XR Spine Cervical 1 View XR SPINE CERVICAL 1 VIEW 07/12/2022 7:42 EDT IHC At-Risk Indicator YES 07/12/2022 7:15 EDT Blood Glucose, Capillary 164 mg/dL HI Blood Glucose Testing Reason Routine Temperature Oral 37 DegC Heart Rate Monitored 110 bpm HI Respiratory Rate 16 br/min Systolic Blood Pressure NBP 152 mmHg HI Diastolic Blood Pressure NBP 69 mmHg Mean Arterial Pressure (NBP) 89 mmHg Reason For Taking VItal Signs Routine Oral Care ICU Done Primary Pain Location Generalized Primary Pain Intensity 5 Primary Pain Time Pattern acute Primary Pain Onset Gradual Primary Pain Quality Aching Primary Pain Non-Pharma Intervention Repositioning Primary Pain Alleviating Factors Medication, Repositioning Primary Pain Nonverbal Response Nods Yes Pain Scale Type 0-10 Pain scale Nail Bed Color Oppelo Capillary Refill < 2 seconds Heart Sounds ICU S1S2 Heart Rhythm Regular Dorsalis Pedis Pulse, Left 1+ Thready Dorsalis Pedis Pulse, Right 1+ Thready Posttibial Pulse, Left 1+ Thready Posttibial Pulse, Right 1+ Thready Radial Pulse, Left 2+ Normal Radial Pulse, Right 2+ Normal Edema Generalized None Cardiac Rhythm Sinus tachycardia, Bundle branch block Monitoring Lead II, V1/MCL1 PA Interval 0.14 second(s) QRS Duration 0.13 second(s) QT Interval 0.35 second(s) QTc Interval 0.46 second(s) Alarms On and Functional Yes Heart Rate Alarm Set At - Low 50 Heart Rate Alarm Set At - High 120 NSBP Alarm Low 110 NSBP Alarm High 160 HI Respirations Unlabored Respiratory Pattern Regular Breath Sounds Auscultated Anterior only All Lobes Breath Sounds Clear, Diminished Oxygen Therapy Nasal cannula 0L-6L Oxygen Saturation 93 % Oxygen Flow Rate 2 Tracheal Position Midline Abdomen Description Soft Abdomen Palpation Non-Tender Bowel Sounds All Quadrants Present Facial Movement Makes facial grimaces Special Orthopedic Devices Brace Orthopedic Device Location Neck Special Orthopedic Device Use On Skin Symptoms Bruising All Extremity Description Oppelo Skin Temperature Warm Temperature All Extremities Warm Skin Description Oppelo, Normal for ethnicity Skin Integrity Not intact Skin Turgor Elastic Mucous Membrane Color Oppelo Mucous Membrane Description Moist Nose Anterior Skin Abnormality Type: Abrasion Incision, Wound Dressing/Activity: Open to air Wound Status: No complications Continuous IV Infusions NS @ 50ml/hr Forearm Right 18 gauge Peripheral IV Activity: Assessed Peripheral IV Dressing Condition: Clean, Dry, Intact Peripheral IV Dressing Activity: Transparent dressing Peripheral IV Line Status/Patency: Flushes easily, Continuous infusion Peripheral IV Site Condition: No complications Peripheral IV Equipment: IV Pump Neurological Language Able to speak clearly Neurological Symptoms Numbness Gait Unable to assess Extremity Movement Equal Swallowing Difficulty None Characteristics of Communication Appropriate Characteristics of Speech Clear Facial Symmetry Symmetric Level of Consciousness Arousable with minimal stimulation Eye Opening Response [place] Spontaneously Best Motor Response Zeke Obeys simple commands Best Verbal Response [place] Oriented Zeke Coma Score 15 YANICK Yes Left Pupil Description Regular Right Pupil Description Regular Left Pupil Reaction Brisk Right Pupil Reaction Brisk Pupil Size, Left 3 mm Pupil Size, Right 3 mm Strength All Extremities Moderate Left Upper Extremity Sensation Numbness Right Upper Extremity Sensation Intact Left Lower Extremity Sensation Numbness Right Lower Extremity Sensation Intact CN V Facial Sensation Corneal reflex present CN VII Facial Expression and Symmetry Facial movement symmetrical CN IX, X Swallowing, Gag Reflex Swallowing present CAM Mental Status Change & Fluctuation No CAM Inattention No CAM Disorganized Thinking No CAM Altered Level of Consciousness No Confusion Assessment Method Score Negative Violence Risk Confused No Violence Risk Irritable No Violence Risk Boisterous No Violence Risk Verbal Threats No Violence Risk Physical Threats No Violence Risk Attacking Objects No Violence Risk Predictor Score 0 Violence Risk Intervention None Violence Risk Current Interventions None Affect/Behavior Cooperative Orientation Oriented x 4 Orthotics, Device Worn Per Schedule Yes Orientation Assessment Oriented x 4 Activity Status ADL Repositioned right side Beds/Devices Hospital bed Beds/Devices Fluid immersion bed Assistive Equipment elevated on pillows Activity Assistance Maximum assistance SCD On/Re-applied bilateral knee high Standard Safety ID band on, Call device within reach, Bed in low position, Wheels locked, Upper/Half-Length side-rails up, Phone within reach, personal items within reach, Safety level maintained High Risk Safety Identified as high risk, Fall ID band on, Room located near nursing station, Door open, Room check performed Demonstrates Correct Call Light Use Yes Degrees Head of Bed Elevated 0 07/12/2022 7:09 EDT Reason for PRN medication Nausea and/or vomiting PRN Med for Nausea/Vomiting Effective Yes PRN Medication Effectiveness Evaluation PRN Medication Effectiveness Evaluation 07/12/2022 7:08 EDT IHC At-Risk Indicator YES 07/12/2022 7:06 EDT IHC At-Risk Indicator YES 07/12/2022 7:05 EDT IHC At-Risk Indicator YES 07/12/2022 7:00 EDT Urethral Indwelling/Continuous 16 Fr 07/12/2022 Urinary Catheter Output: 250 mL Oral Intake 50 mL 07/12/2022 6:59 EDT Sodium Chloride 0.9% 400 mL mL 07/12/2022 6:51 EDT Mechanical VTE Prophylaxis Education Not Done: See ICU flow (Not Done) Mechanical VTE Prophylaxis Education Not Done: See ICU flow (Not Done) Sequential Compression Device Form Not Done (Not Done) Sequential Compression Device Form Not Done (Not Done) 07/12/2022 6:43 EDT Primary Pain Intensity 10 HYDROmorphone 0.5 mg mg 07/12/2022 6:39 EDT prochlorperazine 5 mg mg 07/12/2022 6:26 EDT IHC At-Risk Indicator YES 07/12/2022 6:13 EDT IHC At-Risk Indicator YES 07/12/2022 6:01 EDT Heart Rate Monitored 104 bpm HI Respiratory Rate 15 br/min Systolic Blood Pressure NBP 163 mmHg >HHI Diastolic Blood Pressure NBP 79 mmHg Mean Arterial Pressure (NBP) 97 mmHg Reason For Taking VItal Signs Routine Oxygen Therapy Nasal cannula 0L-6L Oxygen Saturation 95 % Oxygen Flow Rate 2 07/12/2022 5:50 EDT Reason for PRN medication Nausea and/or vomiting PRN Med for Nausea/Vomiting Effective No PRN Medication Effectiveness Evaluation PRN Medication Effectiveness Evaluation 07/12/2022 5:48 EDT Pain Scale Assessment 0-10 Pain scale Primary Pain Location Generalized Primary Pain Intensity 9 Reason for PRN medication Pain management PRN medication effectiveness No PRN Medication Effectiveness Evaluation PRN Medication Effectiveness Evaluation 07/12/2022 5:46 EDT IHC At-Risk Indicator YES 07/12/2022 5:43 EDT Neurosurgery Rounding Note Progress Note (Modified) 07/12/2022 5:38 EDT IHC At-Risk Indicator YES 07/12/2022 5:23 EDT Electrocardiogram - EKG - CV Signed 07/12/2022 5:20 EDT ondansetron 4 mg mg 07/12/2022 5:18 EDT Primary Pain Intensity 10 HYDROmorphone 0.5 mg mg pantoprazole 40 mg mg 07/12/2022 4:17 EDT IHC At-Risk Indicator YES 07/12/2022 3:49 EDT Mechanical VTE Prophylaxis Education Not Done: See ICU flow (Not Done) Sequential Compression Device Form Not Done (Not Done) 07/12/2022 3:29 EDT Troponin I High Sensitivity 12.59 ng/L 07/12/2022 3:27 EDT IPOC Risk for Unstable Glucose Yes 07/12/2022 3:26 EDT IHC At-Risk Indicator YES 07/12/2022 3:05 EDT Temperature Oral 36.7 DegC Heart Rate Monitored 96 bpm Respiratory Rate 13 br/min LOW Systolic Blood Pressure NBP 143 mmHg HI Diastolic Blood Pressure NBP 65 mmHg Mean Arterial Pressure (NBP) 82 mmHg Reason For Taking VItal Signs Routine Primary Pain Location Upper back Primary Pain Intensity 3 Primary Pain Nonverbal Response Nods Yes Pain Scale Type 0-10 Pain scale Monitor Alarms On and Limits Checked Nail Bed Color Oppelo Capillary Refill < 2 seconds Heart Sounds ICU S1S2 Heart Rhythm Regular Dorsalis Pedis Pulse, Left 1+ Thready Dorsalis Pedis Pulse, Right 1+ Thready Posttibial Pulse, Left 1+ Thready Posttibial Pulse, Right 1+ Thready Radial Pulse, Left 2+ Normal Radial Pulse, Right 2+ Normal Cardiac Rhythm Sinus rhythm Monitoring Lead II, V5/MCL5 Alarms On and Functional Yes Heart Rate Alarm Set At - Low 50 Heart Rate Alarm Set At - High 120 NSBP Alarm Low 90 NSBP Alarm High 160 HI Respirations Unlabored Respiratory Pattern Regular Breath Sounds Auscultated Anterior only All Lobes Breath Sounds Clear Oxygen Therapy Nasal cannula 0L-6L Oxygen Saturation 96 % Oxygen Flow Rate 2 Tracheal Position Midline Abdomen Description Non-distended Abdomen Palpation Non-Tender Urinary Elimination Urinary catheter draining Urine Color Yellow Urine Description Medium amount, Clear Urinary Elimination Devices External catheter External Female external catheter 07/11/2022 Urinary Catheter Activity: Assessed Urinary Catheter Secured: Securement device on Urinary Catheter Drainage System: Dependent drainage bag Urinary Catheter Site Condition: No complications Facial Movement Makes facial grimaces, Symmetric resting/crying Special Orthopedic Devices Brace Orthopedic Device Location Neck Special Orthopedic Device Use On Skin Symptoms Bruising All Extremity Description Oppelo Skin Temperature Warm Skin Description Oppelo, Normal for ethnicity Skin Integrity Not intact Skin Turgor Elastic Mucous Membrane Color Oppelo Mucous Membrane Description Moist Nose Anterior Skin Abnormality Type: Abrasion Wound Status: No complications Neurological Language Able to speak clearly, Follows simple commands Neurological Symptoms Numbness Gait Unable to assess Extremity Movement Equal Swallowing Difficulty None Characteristics of Communication Appropriate Characteristics of Speech Clear Facial Symmetry Symmetric Level of Consciousness Arousable with minimal stimulation Eye Opening Response Zeke Spontaneously Best Motor Response [place] Obeys simple commands Best Verbal Response Zeke Oriented [place] Coma Score 15 YANICK Yes Left Pupil Description Regular Right Pupil Description Regular Left Pupil Reaction Brisk Right Pupil Reaction Brisk Pupil Size, Left 3 mm Pupil Size, Right 3 mm Strength All Extremities Moderate Left Upper Extremity Sensation Numbness Right Upper Extremity Sensation Intact Left Lower Extremity Sensation Intact Right Lower Extremity Sensation Numbness CN V Facial Sensation Corneal reflex present CN VII Facial Expression and Symmetry Facial movement symmetrical CN IX, X Swallowing, Gag Reflex Swallowing present Affect/Behavior Appropriate, Calm, Cooperative Orientation Oriented x 4, Follows simple commands Orthotics, Device Worn Per Schedule Yes Activity Status ADL Repositioned left side Beds/Devices Hospital bed, low air loss bed Assistive Equipment elevated on pillows Activity Assistance Moderate assistance SCD On/Re-applied bilateral knee high Standard Safety ID band on, Call device within reach, Bed in low position, Wheels locked, Upper/Half-Length side-rails up, Safety level maintained Degrees Head of Bed Elevated 30 07/12/2022 2:49 EDT WBC 8.2 10^3/mcL RBC 4.01 10^6/mcL LOW Hgb 11.6 G/dL LOW Hct 36.6 % MCV 91.2 fL MCH 29.0 pg MCHC 31.8 G/dL LOW RDW 14.8 % Platelet 105 10^3/mcL LOW MPV 6.3 fL LOW Neutrophil % 82.8 % HI Lymphocyte % 10.6 % LOW Monocyte % 5.9 % Eosinophil % 0.2 % Basophil % 0.5 % Neutrophil, Absolute 6.8 10^3/mcL Lymphocyte, Absolute 0.9 10^3/mcL Monocyte, Absolute 0.5 10^3/mcL Eosinophil, Absolute 0.0 10^3/mcL Basophil, Absolute 0.0 10^3/mcL Glucose Level 138 mg/dL HI Sodium Level 145 mEq/L Potassium Level 4.6 mEq/L Chloride 103 mEq/L CO2 35 mEq/L HI Electrolyte Balance 7.0 mEq/L BUN 14.0 mg/dL Creatinine Lvl (s) 0.65 mg/dL BUN/Creatinine Ratio 21.5 ratio Calcium Lvl 9.2 mg/dL GFR Non- >60 ml/min/1.73sqm NA GFR >60 ml/min/1.73sqm NA Creatinine Clearance Calc 70.29 mL/min 07/12/2022 2:03 EDT Heart Rate Monitored 98 bpm Respiratory Rate 13 br/min LOW Systolic Blood Pressure NBP 139 mmHg Diastolic Blood Pressure NBP 66 mmHg Mean Arterial Pressure (NBP) 82 mmHg Reason For Taking VItal Signs Routine Primary Pain Location Upper back Primary Pain Intensity 3 Primary Pain Quality Sharp Primary Pain Non-Pharma Intervention Lights dimmed, Noise reduction measures, Repositioning, Rest Pain Scale Type 0-10 Pain scale Monitor Alarms On and Limits Checked Nail Bed Color Oppelo Capillary Refill < 2 seconds Heart Sounds ICU S1S2 Heart Rhythm Regular Dorsalis Pedis Pulse, Left 1+ Thready Dorsalis Pedis Pulse, Right 1+ Thready Posttibial Pulse, Left 1+ Thready Posttibial Pulse, Right 1+ Thready Radial Pulse, Left 2+ Normal Radial Pulse, Right 2+ Normal Edema Generalized None Cardiac Rhythm Sinus rhythm Monitoring Lead II Alarms On and Functional Yes Heart Rate Alarm Set At - Low 50 Heart Rate Alarm Set At - High 120 NSBP Alarm Low 110 NSBP Alarm High 160 HI Respirations Unlabored Respiratory Pattern Regular Breath Sounds Auscultated Anterior only All Lobes Breath Sounds Clear, Equal Cough None Oxygen Therapy Nasal cannula 0L-6L Oxygen Saturation 95 % Oxygen Flow Rate 2 Tracheal Position Midline Abdomen Description Non-distended, Soft Abdomen Palpation Non-Tender, Soft Passing Flatus Yes Bowel Continence LTC No bowel movement Bowel Sounds All Quadrants Present Urinary Elimination Urinary catheter draining Urine Color Yellow, Light Urine Description Small amount, Clear Urinary Elimination Devices External catheter External Female external catheter 07/11/2022 Urinary Catheter Activity: Assessed Urinary Catheter Secured: Securement device on Urinary Catheter Drainage System: Dependent drainage bag Urinary Catheter Site Condition: No complications Urinary Catheter Output: 100 mL Facial Movement Makes facial grimaces Special Orthopedic Devices Brace Orthopedic Device Location Neck, [place] Special Orthopedic Device Use On Skin Symptoms Bruising All Extremity Description Oppelo Skin Temperature Warm Temperature All Extremities Warm Skin Description Opp[place], Dry Skin Integrity Not intact Skin Turgor Elastic Mucous Membrane Color [place] Mucous Membrane Description Moist Nose Anterior Wound Status: Unchanged Continuous IV Infusions NS@50 Neurological Language Able to speak clearly Neurological Symptoms Numbness Gait Unable to assess Extremity Movement Equal Swallowing Difficulty None Characteristics of Communication Appropriate Characteristics of Speech Clear Facial Symmetry Symmetric Level of Consciousness Arousable with minimal stimulation Eye Opening Response Zeke To voice Best Motor Response [place] Obeys simple commands Best Verbal Response Zeke Oriented [place] Coma Score 14 YANICK Yes Left Pupil Description Regular Right Pupil Description Regular Left Pupil Reaction Brisk Right Pupil Reaction Brisk Pupil Size, Left 3 mm Pupil Size, Right 3 mm Strength All Extremities Moderate Left Upper Extremity Sensation Numbness Right Upper Extremity Sensation Intact Left Lower Extremity Sensation Intact Right Lower Extremity Sensation Numbness CN V Facial Sensation Corneal reflex present CN VII Facial Expression and Symmetry Facial movement symmetrical CN IX, X Swallowing, Gag Reflex Swallowing present Affect/Behavior Appropriate, Calm, Cooperative Orientation Oriented x 4 Orthotics, Device Worn Per Schedule Yes Activity Status ADL Complete bedrest Beds/Devices Fluid immersion bed Activity Assistance Maximum assistance SCD On/Re-applied bilateral knee high Standard Safety Safety level maintained High Risk Safety Room check performed Demonstrates Correct Call Light Use Yes Degrees Head of Bed Elevated 30 Emesis Count 0 EA Stool Count 0 EA 07/12/2022 2:00 EDT UA Specimen Type Not Given UA Color Yellow UA Appear Hazy UA Spec Grav 1.020 UA Glucose Negative mg/dL UA Bili Negative UA Ketones Negative mg/dL UA Blood Negative UA pH 6.5 UA Protein Negative mg/dL UA Urobilinogen 0.2 E.U./dL UA Nitrite Positive UA Leuk Est Moderate UA RBC Negative /HPF UA WBC 3-5 /HPF UA Squam Epithelial Negative /HPF UA Bacteria 2+ /HPF ER U Drug Screen Positive ER U Drug Screen Interp ER U Drug Screen Interp U ER Drugs Screened: See Below Amphetamine (u) Neg Barbiturate (u) Neg Benzodiazepine (u) Neg Cannabinoid (u) Neg Cocaine (u) Neg Opiate (u) Pos PCP (u) Neg 07/12/2022 0:38 EDT Heart Rate Monitored 98 bpm Respiratory Rate 13 br/min LOW Systolic Blood Pressure NBP 138 mmHg Diastolic Blood Pressure NBP 76 mmHg Mean Arterial Pressure (NBP) 70 mmHg Pain Scale Assessment 0-10 Pain scale Primary Pain Location Upper back Primary Pain Intensity 4 Reason for PRN medication Pain management Reason for PRN medication Nausea and/or vomiting PRN medication effectiveness Yes Oxygen Saturation 93 % PRN Med for Nausea/Vomiting Effective Yes Violence Risk Confused No Violence Risk Irritable No Violence Risk Boisterous No Violence Risk Verbal Threats No Violence Risk Physical Threats No Violence Risk Attacking Objects No Violence Risk Predictor Score 0 Violence Risk Intervention None Violence Risk Current Interventions None PRN Medication Effectiveness Evaluation PRN Medication Effectiveness Evaluation PRN Medication Effectiveness Evaluation PRN Medication Effectiveness Evaluation 07/12/2022 0:35 EDT IPOC Impaired Tissue Integrity Yes 07/12/2022 0:31 EDT IHC At-Risk Indicator YES 07/12/2022 0:28 EDT Able To Drink Order Detail No Able To Sign Consents Order Detail Yes Code Status Order Detail Full code IV Order Detail Yes Dialysis Schedule Order Detail N/A Has Diabetes Order Detail Yes Isolation Precautions Order Detail None Nurse Collect Order Detail 0 Oxygen Order Detail Yes Order Detail N/A Prior Valve Replacement Order Detail No Transport Mode Order Detail Bed Nurse and Monitor Commercial Real Estate Manager Details Form Commercial Real Estate Manager Details Form 07/12/2022 0:25 EDT Mechanical VTE Prophylaxis Education Not Done: Task Duplication (Not Done) Sequential Compression Device Form Not Done (Not Done) 07/12/2022 0:08 EDT Primary Pain Intensity 7 HYDROmorphone 0.5 mg mg ondansetron 4 mg mg . Assessment and Plan [place] [employer] (ASA) physical status classification: Class IV. Anesthetic Preoperative Plan Premedication: intravenous. Anesthetic technique: General. Induction: intravenously. Maintenance airway: Oral endotracheal tube. Special techniques: neuro monitoring, field avoidance, ant-post approach requiring supine and pronepositioning. Special Monitoring: Arterial line. Postoperative pain management: Per surgeon. Risks discussed: nausea, vomiting, headache, sore throat, dental injury, hypotension, allergic reaction, serious complications. Informed consent: signed by patient. Notes: Patient identified, medical record reviewed, medical history reviewed with patient. Assessment performed. Plan prescribed discussed with patient including risks. Inquiries invited and addressed. Consent signed by patient, pt agrees to proceed with GA for planned procedure, nadiya for hemodynamic monitoring, additional IV access, possible central line, possible blod transfusion. Beta Doris: Beta Doris Taken Within 24 Hrs: Yes. Digitally Signed by ALEJANDRA HERNANDEZ MD on 07/13/2022 07:28 AM [facility] 08-29-2022 Note Date of Service 07/12/2022 Split/shared visit with Dr. Matthews Neurosurgical CC: Unstable C6-C7 fracture dislocation post fall Today is hospital/ICU day #1. Patient has complaints of increased neck pain today. No new neurological complaints. States she remains with numbness in left hand along with mild weakness in left upperextremity with left shoulder discomfort. States the symptoms are new post fall She denies chest pain, shortness of breath, abdominal pain, nausea, numbness, weakness, or tinglingin lower extremities or right upper extremity. Patient has remained hemodynamically and neurologically stable overnight Objective Vitals and Measurements T: 36.7 C (Oral) TMIN: 36.7 C (Oral) TMAX: 36.9 C (Oral) HR: 96(Monitored) RR: 13 BP: 143/65 SpO2: 96% HT: 165 cm WT: 98.7 kg BMI: 36.25 Intake and Output 7AM Yesterday to 7AM Today Intake and Output (Last 24 hours) Intake Administration Information 257.50 Output Urinary Catheter Output: 400.00 Stool Count 0.00 Emesis Count 0.00 Total Summary Total Intake 257.50 Total Output 400.00 Fluid Balance -142.50 Physical Exam Patient is lying flat in bed with head of bed elevated in reverse Trendelenburg Shalini brace is on, chin piece slightly tilted to the left. Will await repositioning brace with Dr. Matthews Lungs are clear bilaterally. She is not short of breath. No wheezing or crackles heard. She is saturating well on 2 L nasal cannula. Blood pressure and heart rate remained stable. Patient is afebrile. She is urinating well. No UTI symptoms. Has remained n.p.o. but has had some ice chips since admission, no nausea. Heart rate is regular, she is in normal sinus rhythm. Very mild pretibial and ankleedema. Upper extremity strength remains and equal. Left tricep 2.5/5, bicep 3.5/5, youth agent 4/5, bilateral intrinsics are strong. Negative Pierre's. Right upper and bilateral lower extremities moderate equal strength. No clonus today, did have 2 beats clonus on the left in the ED Weight Dosing Weight: 98.7 kg (07/11/22) Dosing Weight: 98.7 kg (07/11/22) Medications Medications (11) Active Scheduled: (1) pantoprazole 40 mg VIAL 40 mg, IV Push, qDayAC Continuous: (2) insulin regular 100 unit(s) + NS Premix Diluent 100 mL 100 mL, Intravenous NS (0.9% nacl) 1,000 mL 1,000 mL, Intravenous, 50 mL/hr PRN: (8) acetaminophen 325 mg Tablet 650 mg 2 tab(s), Oral, q4h acetaminophen-HYDROcodone 325-5 mg tablet 1 tab(s), Oral, q4h dextrose 50% Solution Disp syringe 50 mL 25 g 50 mL, IV Push, AsDirected docusate sodium 100 mg Capsule 100 mg 1 cap(s), Oral, BID HYDROmorphone 0.5 mg/0.5 mL PF syringe 0.5 mg 0.5 mL, IV Push, q3h insulin regular human recombinant 100 units/mL (3 mL) Soln sliding scale insulin, Subcutaneous, q4h ondansetron 2 mg/ 1 mL 2 mL INJ 4 mg 2 mL, IV Push, q4h polyethylene glycol 3350 - UD packet 17 gram(s) 15 mL, Oral, qDay Lab Results 07/12 02:49 WBC: 8.2 Hgb: 11.6 L Hct: 36.6 Platelet: 105 L Neutrophil %: 82.8 H Glucose Level: 138 H Sodium Level: 145 Potassium Level: 4.6 BUN: 14.0 Creatinine Lvl (s): 0.65 07/11 16:25 Protime: 11.2 PT International Ratio: 0.9 07/11 13:23 WBC: 6.8 Hgb: 11.0 L Hct: 34.6 Platelet: 102 L Neutrophil %: 86.6 H Glucose Level: 147 H Sodium Level: 144 Potassium Level: 4.8 BUN: 18.0 Creatinine Lvl (s): 0.66 Imaging Results and Diagnostics XR Spine Thoracic 1 View Result Date: July 11, 2022 Verified By: YOAV PALOMINO DO CLINICAL STATEMENT: IMPRESSION: Nearly nondiagnostic exam secondary to body habitus. No obvious compressionfracture or spondylolisthesis in the visualized spine. ATTENDING ADDENDUM: This exam is nondiagnostic to excludethoracic fracture or traumaticmalalignment, especially in the setting of known cervical spine fractu re.Exam is limited secondary to portable cross-table lateral technique. XR Spine Cervical 1 View Result Date: July 11, 2022 Verified By: YOAV PALOMINO DO CLINICAL STATEMENT: IMPRESSION: Limited exam secondary to inability to perform swimmer's view. Anterior discspace widening at C6-7 is again noted, however C7 is not well demonstratedand subluxation cannot be adequately assessed. I have reviewed the resident's preliminary report and agree with findings andimpression. MRI Spine Cervical w/o Contrast Result Date: July 11, 2022 Verified By: ROBERTA ROSARIO MD CLINICAL STATEMENT: IMPRESSION: Displaced and distracted C6-C7 fracture. There is stenosis at this level,but there is no definite cord compression and there is no abnormal signal inthe cord at this or any other level. 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 Milder degenerative changes at the remaining levels. Mild stenosis at C4-C5and C5-C6. Signal changes in the ishmael, likely small vessel ischemic disease. EKG Electrocardiogram (EKG) - InProcess -- 07/12/22 3:29:00 EDT Assessment/Plan 71-year-old female sustained a unwitnessed mechanical fall over her walker landing on left side andface 07/11/2022. Denies LOC. Developed immediate neck pain post fall. She was taken to [facility] by EMS found to have cervical spine injury and transferred to [place] ED. Stat MRI completed and patient was admitted to the surgical ICU by Dr. Matthews Cervical spine injury CT cervical spine and MRI reviewed by Dr. Matthews. These images show a unstable distraction and dislocation fracture at C6-C7 with bilateral pedicle fractures, ligamentous injury and stenosis C2-C3 fromOPLL [1] Cervical and thoracic x-rays completed after Shalini brace placed yesterday Keep patient on strict bedrest. Elevate head of bed in reverse Trendelenburg Shalini brace to remain on at all times Please refer to Dr. Matthews's addendum for treatment plan Discussed case with ICU nurse practitioner [1] History and Physical; NITA MADERA 07/11/2022 18:17 EDT Digitally Signed by NITA MADERA on 07/12/2022 05:53 AM [id number] Critical care medicine Consult note Date of Service 07/12/2022. Reason for Consultation Critical care management Referring Physician Dr. Trace Matthews History of Present Illness 71 years old lady with known history of diabetes mellitus, hypertension, dyslipidemia and obesity, had abnormal PFTs in the past were finding are suggestive of restrictive lung disease with a total lung capacity of 45% of predicted, underwent CAT scan of the chest January 2021 which reveals no evidence of interstitial lung disease just some scarring in both lower lobes, patient also uses 2 L of oxygen chronically patient uses a walker due to her chronic back pain and an unsteady gait, unfortunately fell yesterday went to outside hospital where initially CAT scan of the neck was done which reveals evidence of C6-C7 fracture along with some stenosis at the level of C2C3 so that patient was transferred to [facility] where she was evaluated per neurosurgery Dr. Trace Matthews and cervical MRI was performed which reveals dislocation and unstable fracture of the C6-7 along with mild cord compression at the level of C2 and C3 so that Shalini brace was applied and the plan is OR sometimes today. This was a purely mechanical fall as patient felt with her walker, no syncope or presyncopal symptoms, patient has not had increasing shortness of breath or any resting or exercise-induced or walkinginduced chest pain for the few days prior to this incidence. And there has been no loss of consciousness. Patient quit cigarette smoking 20 years ago after she smoked for 10 to 15 years few cigarettes a day between 1-3 and no manifestation of COPD and her spirometry reveals no obstructive defect in the past. In addition patient had a 2D echo back in 2019 which reveals normal LV and RV size and functions. Review of Systems Extensive review of system was performed, pertinent findings were described in the history of present illness otherwise all negative Physical Exam Vitals and Measurements T: 37 C (Oral) TMIN: 36.7 C (Oral) TMAX: 37 C (Oral) HR: 101(Monitored) RR: 12 BP: 141/60 SpO2: 94%HT: 165 cm WT: 98.7 kg BMI: 36.25 Weight Dosing Weight: 98.7 kg (07/11/22) Dosing Weight: 98.7 kg (07/11/22) General patient is alert does not appear to be in any distress. Skin: Warm and dry no obvious rash or ulcerations. HEENT: The head is normal cephalic, pupils are equal, sclerae clear, mucous membranes are moist, mouth and throat without any exudate. Neck: Shalini device is in place Cardiovascular: Normal heart sounds, regular rhythm no murmurs. Chest and lung exam: Normal excursion with symmetric chest wall movement. Chest wall is nontender. Lungs are clear, breath sounds equal there is no rales or rhonchi's no wheezing. Abdomen: No obvious visible abnormalities, soft, nontender, no organomegaly, no rigidity or tenderness. Neurologic: Alert moves all 4 extremities, no focal motor deficits present. Musculoskeletal: No clubbing, cyanosis or edema. Lymphatic: No evidence of lymphadenopathy or tenderness. Lab Results 07/12 02:49 WBC: 8.2 Hgb: 11.6 L Hct: 36.6 Platelet: 105 L Neutrophil %: 82.8 H Glucose Level: 138 H Sodium Level: 145 Potassium Level: 4.6 BUN: 14.0 Creatinine Lvl (s): 0.65 07/11 16:25 Protime: 11.2 PT International Ratio: 0.9 07/11 13:23 WBC: 6.8 Hgb: 11.0 L Hct: 34.6 Platelet: 102 L Neutrophil %: 86.6 H Glucose Level: 147 H Sodium Level: 144 Potassium Level: 4.8 BUN: 18.0 Creatinine Lvl (s): 0.66 Assessment/Plan 1. Mechanical fall with CT 6 7 dislocation and unstable fracture, mild cord compression at C2-C3. 2. Chronic respiratory failure requiring 2 L of oxygen at home, with severe restrictive defect on her pulmonary function test back in 2019, CAT scan of the chest reveals no evidence of interstitial lung disease. 3. Diabetes mellitus. 4. Chronic hypertension on beta-blockers and ARB. 5. Chronic back pain and unsteady gait for which patient uses a walker. Plan: 1. Overall cardiopulmonary status is stable, will continue current oxygen therapy, place patient onmetoprolol 25 mg IV every 6 hours along with Vasotec 0.625 mg IV twice daily till patient is can take oral medications. 2. Overall patient is medically stable to proceed with neck surgery today, patient has no increasing shortness of breath, or chest pain no syncope presyncope prior to this incidence. 3. SCDs for DVT prophylaxis and Protonix for GI prophylaxis. 4. CBC and basic metabolic profile in the morning Problem List/Past Medical History Ongoing Chronic anemia Chronic back pain COPD GERD (gastroesophageal reflux disease) Goiter Hyperlipidemia Hypertension, essential Incontinence of urine Historical H/O hypercholesterolemia Hypernatremia Procedure/Surgical History Appendectomy None Cholecystectomy Arthroscopic knee operation Tubal ligation Lumpectomy of breast Esophagogastroduodenoscopy Phacoemulsification of cataract with intraocular lens implantation Cardiac catheter Colonoscopy Medications Inpatient atorvastatin, 10 mg= 1 tab(s), Oral, qHS Colace, 100 mg= 1 cap(s), Oral, BID, PRN Compazine, 5 mg= 1 mL, IV Push, q4h, PRN Dextrose, 25 gram(s)= 50 mL, IV Push, AsDirected, PRN Dilaudid, 0.5 mg= 0.5 mL, IV Push, q3h, PRN gabapentin, 300 mg= 1 cap(s), Oral, TID HumuLIN R, sliding scale insulin, Subcutaneous, q4h, PRN Insulin Regular for IV 100 unit(s) + NS Premix Diluent 100 mL Miralax Powder Packet, 17 gram(s)= 15 mL, Oral, qDay, PRN [place] 325- 5 mg oral tablet, 1 tab(s), Oral, q4h, PRN NS 1,000 mL, 1000 mL, Intravenous Protonix IV Push, 40 mg, IV Push, qDayAC Rocephin, 2 gram(s)= 20 mL, IV Push (INT), qDay Tylenol, 650 mg= 2 tab(s), Oral, q4h, PRN Zofran, 4 mg= 2 mL, IV Push, q4h, PRN Home aspirin 81 mg oral delayed release tablet, 81 mg= 1 tab(s), Oral, Daily, Unable to obtain diclofenac potassium 50 mg oral tablet, 50 mg= 1 tab(s), Oral, qDay, 3 refills, Unable to obtain dicyclomine 20 mg oral tablet, 20 mg= 1 tab(s), Oral, BID, 3 refills, Investigating estradiol 0.1 mg/g vaginal cream, 1 appl, Vaginal, 2X/week, 11 refills, Unable to obtain gabapentin 300 mg oral capsule, 300 mg= 1 cap(s), Oral, TID, Unable to obtain glimepiride 4 mg oral tablet, 4 mg= 1 tab(s), Oral, qDay, 3 refills, Investigating Lasix 20 mg oral tablet, 20 mg= 1 tab(s), Oral, BID, 3 refills, Investigating losartan 100 mg oral tablet, 100 mg= 1 tab(s), Oral, qDay, 3 refills, Investigating metoprolol succinate 50 mg oral TABLET extended release, 50 mg= 1 tab(s), Oral, qDay, 3 refills, Investigating Myrbetriq 25 mg oral tablet, extended release, 25 mg= 1 tab(s), Oral, qDay, 3 refills, Unable to obtain nitroglycerin 0.4 mg sublingual tablet, 0.4 mg= 1 tab(s), Sublingual, q5min, Investigating omeprazole 20 mg oral delayed release capsule, 20 mg= 1 cap(s), Oral, qDayAC, PRN, 3 refills, Investigating oxybutynin 5 mg oral tablet, 5 mg= 1 tab(s), Oral, qDay, 3 refills, Unable to obtain simvastatin 10 mg oral tablet, 10 mg= 1 tab(s), Oral, qHS, Unable to obtain Allergies NKA Social History Smoking Status - 05/03/2018 Former smoker Alcohol Use: Never., 08/27/2019 Home/Environment Living situation: Home/Independent. Lives In: Multilevel home, 1st floor bedroom, 1st floor bathroom. Current Home Treatments Blood glucose monitoring, Oxygen therapy. Marital Status: ., 12/24/2019 Nutrition/Health Type of diet: Diabetic. Appetite Good. Eating Difficulties Swallowing., 12/24/2019 Caffeine intake amount: 2-3 servings of coffee daily., 08/27/2019 Substance Abuse Use: Never., 08/27/2019 Tobacco Nicotine Use: Former smoker, quit more than 30 days ago. Exposure to Tobacco Smoke Lives with someone who smokes. Started at age: 17 Years. Stopped at age: 49 Years., 03/10/2020 Family History Arthritis: Daughter. Cancer: Sister. Diverticulitis: Daughter. GERD (gastroesophageal reflux disease): Daughter. HTN - Hypertension: Mother. Heart disease: Father and Brother. Stroke: Mother. Immunizations No qualifying data available. Digitally Signed by DARLING EDWARDS MD on 07/12/2022 09:57 AM [id number] Note ORIGINAL EXAMINATION: ONE XRAY VIEW OF THE CHEST TECHNIQUE: AP upright COMPARISON: Chest 12/04/2021, CT thoracic spine 07/11/2022 HISTORY: ORDERING SYSTEM PROVIDED HISTORY: Reason for Exam: shortness of breath FINDINGS: Support devices: None Cardiomediastinal: The heart size is stable. Lungs: Diminished lung volumes. Redemonstrated bibasilar atelectasis or other airspace disease. Unchanged small left pleural effusion. Pneumothorax: None. Osseous: No acute osseous pathology. The bones are demineralized. Moderate bilateral shoulder arthrosis. Degenerative changes throughout the thoracic spine noted. IMPRESSION: No significant change in the bibasilar atelectasis or other airspace disease and small left pleural effusion. Interpreted by: Gretchen Taylor MD Preliminary Report By: Gretchen Taylor MD Electronically signed By Gretchen Taylor MD Dictated Date: 07/12/2022 8:37:31 AM Prelim Date: 07/12/2022 8:41:07 AM Sign Date: 07/12/2022 8:41:07 AM Ordering Provider: TEQUILA YOUNG [id number] Note Date of Service 07/12/2022 Split/shared visit with Dr. Matthews Neurosurgical CC: Unstable C6-C7 fracture dislocation post fall Today is hospital/ICU day #1. Patient has complaints of increased neck pain today. No new neurological complaints. States she remains with numbness in left hand along with mild weakness in left upperextremity with left shoulder discomfort. States the symptoms are new post fall She denies chest pain, shortness of breath, abdominal pain, nausea, numbness, weakness, or tinglingin lower extremities or right upper extremity. Patient has remained hemodynamically and neurologically stable overnight Objective Vitals and Measurements T: 36.7 C (Oral) TMIN: 36.7 C (Oral) TMAX: 36.9 C (Oral) HR: 96(Monitored) RR: 13 BP: 143/65 SpO2: 96% HT: 165 cm WT: 98.7 kg BMI: 36.25 Intake and Output 7AM Yesterday to 7AM Today Intake and Output (Last 24 hours) Intake Administration Information 257.50 Output Urinary Catheter Output: 400.00 Stool Count 0.00 Emesis Count 0.00 Total Summary Total Intake 257.50 Total Output 400.00 Fluid Balance -142.50 Physical Exam Patient is lying flat in bed with head of bed elevated in reverse Trendelenburg Shalini brace is on, chin piece slightly tilted to the left. Will await repositioning brace with Dr. Matthews Lungs are clear bilaterally. She is not short of breath. No wheezing or crackles heard. She is saturating well on 2 L nasal cannula. Blood pressure and heart rate remained stable. Patient is afebrile. She is urinating well. No UTI symptoms. Has remained n.p.o. but has had some ice chips since admission, no nausea. Heart rate is regular, she is in normal sinus rhythm. Very mild pretibial and ankleedema. Upper extremity strength remains and equal. Left tricep 2.5/5, bicep 3.5/5, youth agent 4/5, bilateral intrinsics are strong. Negative Pierre's. Right upper and bilateral lower extremities moderate equal strength. No clonus today, did have 2 beats clonus on the left in the ED Weight Dosing Weight: 98.7 kg (07/11/22) Dosing Weight: 98.7 kg (07/11/22) Medications Medications (11) Active Scheduled: (1) pantoprazole 40 mg VIAL 40 mg, IV Push, qDayAC Continuous: (2) insulin regular 100 unit(s) + NS Premix Diluent 100 mL 100 mL, Intravenous NS (0.9% nacl) 1,000 mL 1,000 mL, Intravenous, 50 mL/hr PRN: (8) acetaminophen 325 mg Tablet 650 mg 2 tab(s), Oral, q4h acetaminophen-HYDROcodone 325-5 mg tablet 1 tab(s), Oral, q4h dextrose 50% Solution Disp syringe 50 mL 25 g 50 mL, IV Push, AsDirected docusate sodium 100 mg Capsule 100 mg 1 cap(s), Oral, BID HYDROmorphone 0.5 mg/0.5 mL PF syringe 0.5 mg 0.5 mL, IV Push, q3h insulin regular human recombinant 100 units/mL (3 mL) Soln sliding scale insulin, Subcutaneous, q4h ondansetron 2 mg/ 1 mL 2 mL INJ 4 mg 2 mL, IV Push, q4h polyethylene glycol 3350 - UD packet 17 gram(s) 15 mL, Oral, qDay Lab Results 07/12 02:49 WBC: 8.2 Hgb: 11.6 L Hct: 36.6 Platelet: 105 L Neutrophil %: 82.8 H Glucose Level: 138 H Sodium Level: 145 Potassium Level: 4.6 BUN: 14.0 Creatinine Lvl (s): 0.65 07/11 16:25 Protime: 11.2 PT International Ratio: 0.9 07/11 13:23 WBC: 6.8 Hgb: 11.0 L Hct: 34.6 Platelet: 102 L Neutrophil %: 86.6 H Glucose Level: 147 H Sodium Level: 144 Potassium Level: 4.8 BUN: 18.0 Creatinine Lvl (s): 0.66 Imaging Results and Diagnostics XR Spine Thoracic 1 View Result Date: July 11, 2022 Verified By: YOAV PALOMINO DO CLINICAL STATEMENT: IMPRESSION: Nearly nondiagnostic exam secondary to body habitus. No obvious compressionfracture or spondylolisthesis in the visualized spine. ATTENDING ADDENDUM: This exam is nondiagnostic to excludethoracic fracture or traumaticmalalignment, especially in the setting of known cervical spine fractu re.Exam is limited secondary to portable cross-table lateral technique. XR Spine Cervical 1 View Result Date: July 11, 2022 Verified By: YOAV PALOMINO DO CLINICAL STATEMENT: IMPRESSION: Limited exam secondary to inability to perform swimmer's view. Anterior discspace widening at C6-7 is again noted, however C7 is not well demonstratedand subluxation cannot be adequately assessed. I have reviewed the resident's preliminary report and agree with findings andimpression. MRI Spine Cervical w/o Contrast Result Date: July 11, 2022 Verified By: ROBERTA ROSARIO MD CLINICAL STATEMENT: IMPRESSION: Displaced and distracted C6-C7 fracture. There is stenosis at this level,but there is no definite cord compression and there is no abnormal signal inthe cord at this or any other level. 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 Milder degenerative changes at the remaining levels. Mild stenosis at C4-C5and C5-C6. Signal changes in the ishmael, likely small vessel ischemic disease. EKG Electrocardiogram (EKG) - InProcess -- 07/12/22 3:29:00 EDT Assessment/Plan 71-year-old female sustained a unwitnessed mechanical fall over her walker landing on left side andface 07/11/2022. Denies LOC. Developed immediate neck pain post fall. She was taken to [facility] by EMS found to have cervical spine injury and transferred to [place] ED. Stat MRI completed and patient was admitted to the surgical ICU by Dr. Matthews Cervical spine injury CT cervical spine and MRI reviewed by Dr. Matthews. These images show a unstable distraction and dislocation fracture at C6-C7 with bilateral pedicle fractures, ligamentous injury and stenosis C2-C3 fromOPLL [1] Cervical and thoracic x-rays completed after Shalini brace placed yesterday Keep patient on strict bedrest. Elevate head of bed in reverse Trendelenburg Shalini brace to remain on at all times Please refer to Dr. Matthews's addendum for treatment plan Discussed case with ICU nurse practitioner [1] History and Physical; NITA MADERA APRN-SILVINO 07/11/2022 18:17 EDT Digitally Signed by NITA MADERA on 07/12/2022 05:53 AM [id number] Note ORIGINAL EXAMINATION: ONE XRAY VIEW OF THE CHEST TECHNIQUE: AP upright COMPARISON: Chest 12/04/2021, CT thoracic spine 07/11/2022 HISTORY: ORDERING SYSTEM PROVIDED HISTORY: Reason for Exam: shortness of breath FINDINGS: Support devices: None Cardiomediastinal: The heart size is stable. Lungs: Diminished lung volumes. Redemonstrated bibasilar atelectasis or other airspace disease. Unchanged small left pleural effusion. Pneumothorax: None. Osseous: No acute osseous pathology. The bones are demineralized. Moderate bilateral shoulder arthrosis. Degenerative changes throughout the thoracic spine noted. IMPRESSION: No significant change in the bibasilar atelectasis or other airspace disease and small left pleural effusion. Interpreted by: Gretchen Taylor MD Preliminary Report By: Gretchen Taylor MD Electronically signed By Gretchen Taylor MD Dictated Date: 07/12/2022 8:37:31 AM Prelim Date: 07/12/2022 8:41:07 AM Sign Date: 07/12/2022 8:41:07 AM Ordering Provider: TEQUIL[facility]08-29-2022 Note ORIGINAL EXAMINATION: ONE XRAY VIEW OF THE CERVICAL SPINE 07/12/2022 7:42 am COMPARISON: Cervical spine x-ray on 07/11/2022. CT cervical spine on 07/11/2022 HISTORY: ORDERING SYSTEM PROVIDED HISTORY: Reason for Exam: cervical fracture FINDINGS: Lateral views of the cervical spine demonstrate alignment of C1 through C6 is satisfactory. The C7 vertebral body is not adequately visualized. There is evidence of widening of the anterior to C6-C7 disc space with this appears less prominent than on the CT scan from 07/11/2022. There is no prevertebral soft tissue swelling visible. IMPRESSION: Nondiagnostic assessment of alignment of C6-C7 where known subluxation was demonstrated on prior CT scan. Interpreted by: Eder Clark MD Preliminary Report By: Eder Clark MD Electronically signed By Eder Clark MD Dictated Date: 07/12/2022 7:48:36 AM Prelim Date: 07/12/2022 7:52:46 AM Sign Date: 07/12/2022 7:52:46 AM Ordering Provider: NITA [facility]08-29-2022 Note ORIGINAL EXAMINATION: ONE XRAY VIEW OF THE CERVICAL SPINE 07/12/2022 7:42 am COMPARISON: Cervical spine x-ray on 07/11/2022. CT cervical spine on 07/11/2022 HISTORY: ORDERING SYSTEM PROVIDED HISTORY: Reason for Exam: cervical fracture FINDINGS: Lateral views of the cervical spine demonstrate alignment of C1 through C6 is satisfactory. The C7 vertebral body is not adequately visualized. There is evidence of widening of the anterior to C6-C7 disc space with this appears less prominent than on the CT scan from 07/11/2022. There is no prevertebral soft tissue swelling visible. IMPRESSION: Nondiagnostic assessment of alignment of C6-C7 where known subluxation was demonstrated on prior CT scan. Interpreted by: Eder Clark MD Preliminary Report By: Eder Clark MD Electronically signed By Eder Clark MD Dictated Date: 07/12/2022 7:48:36 AM Prelim Date: 07/12/2022 7:52:46 AM Sign Date: 07/12/2022 7:52:46 AM Ordering Provider: [facility]08-29-2022 Note Date of Service 07/12/2022 Split/shared visit with Dr. Matthews Neurosurgical CC: Unstable C6-C7 fracture dislocation post fall Today is hospital/ICU day #1. Patient has complaints of increased neck pain today. No new neurological complaints. States she remains with numbness in left hand along with mild weakness in left upperextremity with left shoulder discomfort. States the symptoms are new post fall She denies chest pain, shortness of breath, abdominal pain, nausea, numbness, weakness, or tinglingin lower extremities or right upper extremity. Patient has remained hemodynamically and neurologically stable overnight Objective Vitals and Measurements T: 36.7 C (Oral) TMIN: 36.7 C (Oral) TMAX: 36.9 C (Oral) HR: 96(Monitored) RR: 13 BP: 143/65 SpO2: 96% HT: 165 cm WT: 98.7 kg BMI: 36.25 Intake and Output 7AM Yesterday to 7AM Today Intake and Output (Last 24 hours) Intake Administration Information 257.50 Output Urinary Catheter Output: 400.00 Stool Count 0.00 Emesis Count 0.00 Total Summary Total Intake 257.50 Total Output 400.00 Fluid Balance -142.50 Physical Exam Patient is lying flat in bed with head of bed elevated in reverse Trendelenburg Shalini brace is on, chin piece slightly tilted to the left. Will await repositioning brace with Dr. Matthews Lungs are clear bilaterally. She is not short of breath. No wheezing or crackles heard. She is saturating well on 2 L nasal cannula. Blood pressure and heart rate remained stable. Patient is afebrile. She is urinating well. No UTI symptoms. Has remained n.p.o. but has had some ice chips since admission, no nausea. Heart rate is regular, she is in normal sinus rhythm. Very mild pretibial and ankleedema. Upper extremity strength remains and equal. Left tricep 2.5/5, bicep 3.5/5, youth agent 4/5, bilateral intrinsics are strong. Negative Pierre's. Right upper and bilateral lower extremities moderate equal strength. No clonus today, did have 2 beats clonus on the left in the ED Weight Dosing Weight: 98.7 kg (07/11/22) Dosing Weight: 98.7 kg (07/11/22) Medications Medications (11) Active Scheduled: (1) pantoprazole 40 mg VIAL 40 mg, IV Push, qDayAC Continuous: (2) insulin regular 100 unit(s) + NS Premix Diluent 100 mL 100 mL, Intravenous NS (0.9% nacl) 1,000 mL 1,000 mL, Intravenous, 50 mL/hr PRN: (8) acetaminophen 325 mg Tablet 650 mg 2 tab(s), Oral, q4h acetaminophen-HYDROcodone 325-5 mg tablet 1 tab(s), Oral, q4h dextrose 50% Solution Disp syringe 50 mL 25 g 50 mL, IV Push, AsDirected docusate sodium 100 mg Capsule 100 mg 1 cap(s), Oral, BID HYDROmorphone 0.5 mg/0.5 mL PF syringe 0.5 mg 0.5 mL, IV Push, q3h insulin regular human recombinant 100 units/mL (3 mL) Soln sliding scale insulin, Subcutaneous, q4h ondansetron 2 mg/ 1 mL 2 mL INJ 4 mg 2 mL, IV Push, q4h polyethylene glycol 3350 - UD packet 17 gram(s) 15 mL, Oral, qDay Lab Results 07/12 02:49 WBC: 8.2 Hgb: 11.6 L Hct: 36.6 Platelet: 105 L Neutrophil %: 82.8 H Glucose Level: 138 H Sodium Level: 145 Potassium Level: 4.6 BUN: 14.0 Creatinine Lvl (s): 0.65 07/11 16:25 Protime: 11.2 PT International Ratio: 0.9 07/11 13:23 WBC: 6.8 Hgb: 11.0 L Hct: 34.6 Platelet: 102 L Neutrophil %: 86.6 H Glucose Level: 147 H Sodium Level: 144 Potassium Level: 4.8 BUN: 18.0 Creatinine Lvl (s): 0.66 Imaging Results and Diagnostics XR Spine Thoracic 1 View Result Date: July 11, 2022 Verified By: YOAV PALOMINO DO CLINICAL STATEMENT: IMPRESSION: Nearly nondiagnostic exam secondary to body habitus. No obvious compressionfracture or spondylolisthesis in the visualized spine. ATTENDING ADDENDUM: This exam is nondiagnostic to excludethoracic fracture or traumaticmalalignment, especially in the setting of known cervical spine fractu re.Exam is limited secondary to portable cross-table lateral technique. XR Spine Cervical 1 View Result Date: July 11, 2022 Verified By: YOAV PALOMINO DO CLINICAL STATEMENT: IMPRESSION: Limited exam secondary to inability to perform swimmer's view. Anterior discspace widening at C6-7 is again noted, however C7 is not well demonstratedand subluxation cannot be adequately assessed. I have reviewed the resident's preliminary report and agree with findings andimpression. MRI Spine Cervical w/o Contrast Result Date: July 11, 2022 Verified By: ROBERTA ROSARIO MD CLINICAL STATEMENT: IMPRESSION: Displaced and distracted C6-C7 fracture. There is stenosis at this level,but there is no definite cord compression and there is no abnormal signal inthe cord at this or any other level. 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 Milder degenerative changes at the remaining levels. Mild stenosis at C4-C5and C5-C6. Signal changes in the ishmael, likely small vessel ischemic disease. EKG Electrocardiogram (EKG) - InProcess -- 07/12/22 3:29:00 EDT Assessment/Plan 71-year-old female sustained a unwitnessed mechanical fall over her walker landing on left side andface 07/11/2022. Denies LOC. Developed immediate neck pain post fall. She was taken to [facility] by EMS found to have cervical spine injury and transferred to [facility]. Stat MRI completed and patient was admitted to the surgical ICU by Dr. Matthews Cervical spine injury CT cervical spine and MRI reviewed by Dr. Matthews. These images show a unstable distraction and dislocation fracture at C6-C7 with bilateral pedicle fractures, ligamentous injury and stenosis C2-C3 fromOPLL [1] Cervical and thoracic x-rays completed after Shalini brace placed yesterday Keep patient on strict bedrest. Elevate head of bed in reverse Trendelenburg Shalini brace to remain on at all times Please refer to Dr. Matthews's addendum for treatment plan Discussed case with ICU nurse practitioner [1] History and Physical; NITA MADERA 07/11/2022 18:17 EDT Digitally Signed by NITA MADERA on 07/12/2022 05:53 AM [id number] Note ORIGINAL EXAMINATION: ONE XRAY VIEW OF THE THORACIC SPINE 07/11/2022 6:21 pm COMPARISON: CT thorax on 01/12/2021. HISTORY: ORDERING SYSTEM PROVIDED HISTORY: Reason for Exam: C6-7 unstable fracture, eval in Shalini brace FINDINGS: Exam is nearly nondiagnostic secondary to body habitus and portable technique. No obvious compression fracture or spondylolisthesis in the visualized spine. Suspect hypoventilatory changes of the lungs. IMPRESSION: Nearly nondiagnostic exam secondary to body habitus. No obvious compression fracture or spondylolisthesis in the visualized spine. ATTENDING ADDENDUM: This exam is nondiagnostic to exclude thoracic fracture or traumatic malalignment, especially in the setting of known cervical spine fracture. Exam is limited secondary to portable cross-table lateral technique. Interpreted by: Yoav Palomino Preliminary Report By: Josue Blake Electronically signed By Yoav Palomino Dictated Date: 07/11/2022 6:34:15 PM Prelim Date: 07/11/2022 6:38:01 PM Sign Date: 07/11/2022 7:30:42 PM Ordering Provider: [facility]08-28-2022 Note ORIGINAL EXAMINATION: ONE XRAY VIEW OF THE CERVICAL SPINE 07/11/2022 6:19 pm COMPARISON: MR cervical spine and CT cervical spine same day HISTORY: ORDERING SYSTEM PROVIDED HISTORY: Reason for Exam: C6-7 unstable fx FINDINGS: Evaluation of the lower cervical spine is compromised by inability to perform swimmer's view. Neck brace is present. Reversal of the normal cervical lordosis may be due to be positioning or degenerative change. The known C6-7 distraction fracture is at the level of the patient's shoulders, making evaluation difficult. Widening of the anterior C6-7 disc space is again seen, although C7 is not well demonstrated, and subluxation cannot be adequately assessed. Multilevel degenerative changes. IMPRESSION: Limited exam secondary to inability to perform swimmer's view. Anterior disc space widening at C6-7 is again noted, however C7 is not well demonstrated and subluxation cannot be adequately assessed. I have reviewed the resident's preliminary report and agree with findings and impression. Interpreted by: Yoav Palomino Preliminary Report By: Josue Blake Electronically signed By Yoav Palomino Dictated Date: 07/11/2022 6:44:34 PM Prelim Date: 07/11/2022 6:54:08 PM Sign Date: 07/11/2022 7:28:52 PM Ordering Provider: NITA [facility]08-28-2022 History and physical note Date of Service 07/11/2022 Chief Complaint Fall, neck pain History of Present Illness Mrs. Ramirez is a 71-year-old female with a past medical history of hypertension, obesity, hyperlipidemia, COPD, severe restrictive airway disease follows with [facility] pulmonology, noninsulin-dependent type 2 diabetes, venous insufficiency, goiter, GERD, chronic back pain with gait instability uses a walker and anemia due to B12 and iron Patient was ambulating this a.m. 07/11/2022 and sustained a mechanical fall over her walker landing on her left side and face. EMS was called and she was placed in a hard cervical collar and C-spine precautions have been maintained. Patient taken to [facility]. She was noted to have a significant cervical spine injury and transferred to [facility] ED for further evaluation and trauma work-up. Dr. Matthews was contacted and stat MRI was completed. This shows significant ligamentous disruption, dislocated and distracted fracture of C6-C7. Shalini brace was placed on the patient in the ED by Michelle arceo, myself and ED nurses. Head andneck were stabilized with log rolling and proper placement of Shalini brace. Patient had tachycardia heart rate into the 130s, and mild hypotension systolic blood pressure 90s/100. Blood pressure andheart rate returned to baseline (110bpm and SBP 150) patient was admitted to the surgical ICU Review of Systems Patient admits to new numbness and weakness of the left upper extremity. States her hand and digits1 through 4 have numbness and slight discomfort. Also complains of neck pain. No other new complaints post fall. She denies recent illnesses or changes in health. Denies numbness or tingling in otherextremities or trunk. States she has been urinating without difficulty, did have episode of urge incontinence today which is longstanding and patient wears depends for. Admits to walking with a walker and states she is fairly steady on her feet, uses a walker due to chronic low back pain. Denies recent falls other than today, denies history of syncope. She is a good historian of her past medical h istory. She currently denies feeling short of breath, having chest pain or abdominal pain. All other symptoms reviewed and negative unless stated. Physical Exam Vitals and Measurements T: 36.7 C (Oral) HR: 97 RR: 18 BP: 140/55 SpO2: 97% HT: 165 cm WT: 98.7 kg BMI: 36.25 Weight Dosing Weight: 98.7 kg (07/11/22) Dosing Weight: 98.7 kg (07/11/22) Patient is lying supine in bed initially with hard cervical collar in place. She gives good effort during evaluation. Upper extremity strength noted to be unequal. Bicep/tricep and youth agent 3.5/5 on the left, strong on the right. Intrinsics are strong bilaterally. Has decreased sensation in left hand and left ulnar side of forearm. Bilateral lower extremity strength is equal and moderate/strong. Dorsiflexion/plantarflexion 4.5/5. She does have tenderness in bilateral calves that she says is longstanding from neuropathy. She is noted to have 2 beats of clonus on the left, none on the right, negative Babinski bilaterally. Heart rate is regular. She has been in sinus rhythm/sinus tachycardia. Blood pressure has been stable 140s/150s systolic. Please note the above changes in heart rate/blood pressure when patient was turned/logrolled in bed. Pulses and perfusion are good. She has no lower extremity edema. Lungs are clear/diminished bilaterally. No cracking or wheezing heard. She is wearing 2 L nasal cannula, she wears oxygen while at home also and she is saturating well. No shortness of breath. Abdomen is soft, good sensation in trunk groin and peritoneal area. Nontender when palpated. Has good sensation when she urinates. Patient remains on strict bedrest, gait is therefore not tested at this time. Skin appears generally intact. She has a small abrasion on mid forehead, no other lacerations or abrasions present. Her facial features are symmetric, she has clear/fluent speech. States she has slight painful swallowing due to mouth being dry. Lab Results 07/11 16:25 Protime: 11.2 PT International Ratio: 0.9 07/11 13:23 WBC: 6.8 Hgb: 11.0 L Hct: 34.6 Platelet: 102 L Neutrophil %: 86.6 H Glucose Level: 147 H Sodium Level: 144 Potassium Level: 4.8 BUN: 18.0 Creatinine Lvl (s): 0.66 Imaging Results and Diagnostics MRI Spine Cervical w/o Contrast Result Date: July 11, 2022 Verified By: ROBERTA ROSARIO MD CLINICAL STATEMENT: IMPRESSION: Displaced and distracted C6-C7 fracture. There is stenosis at this level,but there is no definite cord compression and there is no abnormal signal in the cord at this or any other level. Moderate stenosis and mild cord compression at C2-C3, mainly secondary to posterior longitudinal ligament ossification. Milder degenerative changes at the remaining levels. Mild stenosis at C4-C5and C5-C6. Signal changes in the ishmael, likely small vessel ischemic disease. Assessment/Plan 71-year-old female sustained a unwitnessed mechanical fall over her walker landing on left side andface 07/11/2022. Denies LOC. Developed immediate neck pain post fall. She was taken to [facility] by EMS found to have cervical spine injury and transferred to [place] ED. Stat MRI completed and patient was admitted to the surgical ICU by Dr. Matthews Cervical spine injury CT cervical spine and MRI reviewed by Dr. Matthews. These images show a unstable distraction and dislocation fracture at C6-C7 with bilateral pedicle fractures, ligamentous injury and stenosis C2-C3 fromOPLL. --Patient must remain immobilized at all times --Shalini brace on at all times --Keep head of bed flat and if need to elevate please do so with reverse Trendelenburg --Lateral cervical and thoracic xrays while lying flat in bed --Continue close neurological monitoring Please keep systolic blood pressure 110 160, avoid hypotension Dr. Matthews to speak with patient after x-rays completed regarding recommendations for treatment Consult to worldwide chief creative officer for assistance with medical management and surgical clearance. Discussed case with ICU nurse practitioner Problem List/Past Medical History Ongoing Chronic anemia Chronic back pain COPD GERD (gastroesophageal reflux disease) Goiter Hyperlipidemia Hypertension, essential Incontinence of urine Historical H/O hypercholesterolemia Hypernatremia Procedure/Surgical History Appendectomy None Cholecystectomy Arthroscopic knee operation Tubal ligation Lumpectomy of breast Esophagogastroduodenoscopy Phacoemulsification of cataract with intraocular lens implantation Cardiac catheter Colonoscopy Medications Home Medications (14) Active aspirin 81 mg oral delayed release tablet 81 mg = 1 tab(s), Oral, Daily diclofenac potassium 50 mg oral tablet 50 mg = 1 tab(s), Oral, qDay dicyclomine 20 mg oral tablet 20 mg = 1 tab(s), Oral, BID estradiol 0.1 mg/g vaginal cream 1 appl, Vaginal, 2X/week gabapentin 300 mg oral capsule 300 mg = 1 cap(s), Oral, TID glimepiride 4 mg oral tablet 4 mg = 1 tab(s), Oral, qDay Lasix 20 mg oral tablet 20 mg = 1 tab(s), Oral, BID losartan 100 mg oral tablet 100 mg = 1 tab(s), Oral, qDay metoprolol succinate 50 mg oral TABLET extended release 50 mg = 1 tab(s), Oral, qDay Myrbetriq 25 mg oral tablet, extended release 25 mg = 1 tab(s), Oral, qDay nitroglycerin 0.4 mg sublingual tablet 0.4 mg = 1 tab(s), Sublingual, q5min omeprazole 20 mg oral delayed release capsule 20 mg = 1 cap(s), PRN, Oral, qDayAC oxybutynin 5 mg oral tablet 5 mg = 1 tab(s), Oral, qDay simvastatin 10 mg oral tablet 10 mg = 1 tab(s), Oral, qHS Allergies NKA Social History Alcohol Use: Never., 08/27/2019 Home/Environment Living situation: Home/Independent. Lives In: Multilevel home, 1st floor bedroom, 1st floor bathroom. Current Home Treatments Blood glucose monitoring, Oxygen therapy. Marital Status: ., 12/24/2019 Nutrition/Health Type of diet: Diabetic. Appetite Good. Eating Difficulties Swallowing., 12/24/2019 Caffeine intake amount: 2-3 servings of coffee daily., 08/27/2019 Substance Abuse Use: Never., 08/27/2019 Patient lives at home with her . She is a former smoker, smoked for about 25 years 1 pack ofcigarettes per week Family History Arthritis: Daughter. Cancer: Sister. Diverticulitis: Daughter. GERD (gastroesophageal reflux disease): Daughter. HTN - Hypertension: Mother. Heart disease: Father and Brother. Stroke: Mother. Code Status Code Status - Ordered -- 07/11/22 17:23:00 EDT, Full Code, Constant Order Digitally Signed by NITA MADERA on 07/11/2022 06:29 PM [id number] Note ORIGINAL EXAMINATION: ONE XRAY VIEW OF THE THORACIC SPINE 07/11/2022 6:21 pm COMPARISON: CT thorax on 01/12/2021. HISTORY: ORDERING SYSTEM PROVIDED HISTORY: Reason for Exam: C6-7 unstable fracture, eval in Shalini brace FINDINGS: Exam is nearly nondiagnostic secondary to body habitus and portable technique. No obvious compression fracture or spondylolisthesis in the visualized spine. Suspect hypoventilatory changes of the lungs. IMPRESSION: Nearly nondiagnostic exam secondary to body habitus. No obvious compression fracture or spondylolisthesis in the visualized spine. ATTENDING ADDENDUM: This exam is nondiagnostic to exclude thoracic fracture or traumatic malalignment, especially in the setting of known cervical spine fracture. Exam is limited secondary to portable cross-table lateral technique. Interpreted by: Yoav Palomino Preliminary Report By: Josue Blake Electronically signed By Yoav Palomino Dictated Date: 07/11/2022 6:34:15 PM Prelim Date: 07/11/2022 6:38:01 PM Sign Date: 07/11/2022 7:30:42 PM Ordering Provider: [facility]AD[facility] [id number] Evaluation + Plan noteExtracted from: Title:History and Physical Author:SHIRIN MADERA MACHINE MAINTENANCE REPAIRER-TRAFFIC OR SYSTEM DISPATCHER Date:07/11/22 71-year-old female sustained a unwitnessed mechanical fall over her walker landing on left side and face 07/11/2022. Denies LOC. Developed immediate neck pain post fall. She was taken to [facility] by EMS found to have cervical spine injury and transferred to [facility] ED. Stat MRI completed and patient was admitted to the surgical ICU by Dr. Matthews Cervical spine injury CT cervical spine and MRI reviewed by Dr. Matthews. These images show a unstable distraction and dislocation fracture at C6-C7 with bilateral pedicle fractures, ligamentous injury and stenosis C2-C3 from OPLL. --Patient must remain immobilized at all times --Shalini brace on at all times --Keep head of bed flat and if need to elevate please do so with reverse Trendelenburg --Lateral cervical and thoracic xrays while lying flat in bed --Continue close neurological monitoring Please keep systolic blood pressure 110 160, avoid hypotension Dr. Matthews to speak with patient after x-rays completed regarding recommendations for treatment Consult to worldwide chief creative officer for assistance with medical management and surgical clearance. Discussed case with ICU nurse practitioner Future Appointments Appointment Date:08/10/2022 11:00:00 AM Scheduled Provider: Location:[facility] Appointment Type:NS Post Op Future Scheduled Tests Laboratory* A1C Hemoglobin 01/06/22 * Lipid Profile 01/06/22 * Complete Metabolic Panel 01/06/22 Radiology* XR Spine Cervical AP/LAT 07/27/22 [facility] 08-28-[facility] Note ORIGINAL HISTORY: Fracture COMPARISON: CT earlier same day TECHNIQUE: 1. Sagittal T1-weighted images. 2. Sagittal T2-weighted images. 3. Axial T2-weighted and T2*-weighted images. FINDINGS: There is a displaced fracture at the C6-C7 level with grade 1 anterior displacement of the C6 body relative to C7. There are bilateral pedicle fractures. There is fluid in the C6-C7 disc space and there is extensive prevertebral fluid, mainly inferior to the disc space level. There is edema in the posterior soft tissues centered at C6-C7. The remaining vertebral bodies are grossly intact. There is mild fluid signal in the C4-C5 disc space, but no displacement at either the posterior anterior C4-C5 level. There is no abnormal signal within the cervical spinal cord. There is mild ill-defined T2 hyperintensity in the ishmael, most likely small vessel ischemic disease. Specific findings by level: C2-C3: There is mild spondylosis and superimposed moderate to severe posterior longitudinal ligament ossification. There is moderate stenosis and at least mild cord compression at this level, but no definite abnormal signal in the cord. There is right neural foraminal narrowing. C3-C4: There is mild spondylosis. There is mild right facet hypertrophy. There is mild stenosis. C4-C5: There is mild uncovertebral hypertrophy and mild spondylosis. There is mild stenosis. C5-C6: There is mild spondylosis. There is mild uncovertebral hypertrophy, greater on the left. There is mild ligamentum flavum hypertrophy. There is mild stenosis. There is neural foraminal narrowing on both sides. C6-C7: There is swelling or displacement of the ligamentum flavum. There is mild stenosis, but no definite cord compression. There is bilateral neural foraminal narrowing. C7-T1: Unremarkable. IMPRESSION: Displaced and distracted C6-C7 fracture. There is stenosis at this level, but there is no definite cord compression and there is no abnormal signal in the cord at this or any other level. Moderate stenosis and mild cord compression at C2-C3, mainly secondary to posterior longitudinal ligament ossification. Milder degenerative changes at the remaining levels. Mild stenosis at C4-C5 and C5-C6. Signal changes in the ishmael, likely small vessel ischemic disease. Interpreted by: Roberta Rosario MD Preliminary Report By: Roberta Rosario MD Electronically signed By Roberta Rosario MD Dictated Date: 07/11/2022 1:06:10 PM Prelim Date: 07/11/2022 1:13:40 PM Sign Date: 07/11/2022 1:13:40 PM [facility]ing [id number] Note ORIGINAL HISTORY: Pain, fall COMPARISON: No FINDINGS: There are no acute fractures or dislocations. There is degenerative joint disease, most prominently at the base of the thumb. There is mild soft tissue swelling. IMPRESSION: No fracture is visualized, although there is mild soft tissue swelling. Degenerative joint disease. Interpreted by: Roberta Rosario MD Preliminary Report By: Roberta Rosario MD Electronically signed By Roberta Rosario MD Dictated Date: 07/11/2022 9:13:34 AM Prelim Date: 07/11/2022 9:14:35 AM Sign Date: 07/11/2022 9:14:35 AM Ordering Provider: [facility]08-28-2022 Note ORIGINAL HISTORY: Neck pain, fall this a.m. COMPARISON: No TECHNIQUE: Cervical spine CT with sagittal and coronal reconstructions. This exam was performed according to our departmental dose optimization program, and includes the following measures where applicable: automated exposure control, adjustment of the mAs and/or kVp according to patient size and/or exam, and an iterative reconstruction algorithm. FINDINGS: There is a fracture at the C6-C7 level, with widening of the disc space and distraction, greater at the anterior aspect, and grade 1 anterior displacement of C6 relative to C7. There are fractures at the bases of both pedicle; there is no perched or locked facet. There is moderate soft tissue swelling and hematoma at C6-C7. More superiorly, there is questionable mild disc space widening at C4-C5, but there is bony fusion at the right facet joint and this appears intact. There is underlying DISH and there is prominent posterior longitudinal ligament ossification, particularly at C3 where there is moderate stenosis. IMPRESSION: Distraction extension fracture at C6-C7, with bilateral pedicle fracture, fracture of anterior osteophyte, and widening of the disc space anterior greater than posterior. There is soft tissue swelling and hematoma this level. Prominent posterior longitudinal ligament ossification, particularly at C3 where there is least moderate stenosis Interpreted by: Roberta Rosario MD Preliminary Report By: Roberta Rosario MD Electronically signed By Roberta Rosario MD Dictated Date: 07/11/2022 9:03:59 AM Prelim Date: 07/11/2022 9:13:21 AM Sign Date: 07/11/2022 9:13:21 AM Ordering Provider: [facility]08-28-2022 Note ORIGINAL HISTORY: Pain COMPARISON: No TECHNIQUE: Thoracic spine CT with sagittal and coronal reconstructions. This exam was performed according to our departmental dose optimization program, and includes the following measures where applicable: automated exposure control, adjustment of the mAs and/or kVp according to patient size and/or exam, and an iterative reconstruction algorithm. FINDINGS: No acute fracture is seen. Vertebral body heights are maintained. Alignment is within normal limits. There is mild disc space narrowing. Paraspinous tissues are grossly unremarkable. There is a small left effusion and there is patchy airspace opacification in the dependent lungs. IMPRESSION: No acute fracture. Small left effusion and bilateral atelectasis and or consolidation. Interpreted by: Roberta Rosario MD Preliminary Report By: Roberta Rosario MD Electronically signed By Roberta Rosario MD Dictated Date: 07/11/2022 9:02:02 AM Prelim Date: 07/11/2022 9:03:50 AM Sign Date: 07/11/2022 9:03:50 AM Ordering Provider: [address]28-2022 Note ORIGINAL HISTORY: Fall COMPARISON: 04 December 2021 FINDINGS: No axillary view is provided. No acute fracture is seen. There are degenerative changes, and there is narrowing of the subacromial space. IMPRESSION: No acute fracture is seen. Degenerative changes, including to the rotator cuff. Interpreted by: Roberta Rosario MD Preliminary Report By: Roberta Rosario MD Electronically signed By Roberta Rosario MD Dictated Date: 07/11/2022 8:52:46 AM Prelim Date: 07/11/2022 9:01:52 AM Sign Date: 07/11/2022 9:01:52 AM Ordering Provider: [address]28-2022 Note ORIGINAL HISTORY: Neck pain, fall this a.m. COMPARISON: No TECHNIQUE: Cervical spine CT with sagittal and coronal reconstructions. This exam was performed according to our departmental dose optimization program, and includes the following measures where applicable: automated exposure control, adjustment of the mAs and/or kVp according to patient size and/or exam, and an iterative reconstruction algorithm. FINDINGS: There is a fracture at the C6-C7 level, with widening of the disc space and distraction, greater at the anterior aspect, and grade 1 anterior displacement of C6 relative to C7. There are fractures at the bases of both pedicle; there is no perched or locked facet. There is moderate soft tissue swelling and hematoma at C6-C7. More superiorly, there is questionable mild disc space widening at C4-C5, but there is bony fusion at the right facet joint and this appears intact. There is underlying DISH and there is prominent posterior longitudinal ligament ossification, particularly at C3 where there is moderate stenosis. IMPRESSION: Distraction extension fracture at C6-C7, with bilateral pedicle fracture, fracture of anterior osteophyte, and widening of the disc space anterior greater than posterior. There is soft tissue swelling and hematoma this level. Prominent posterior longitudinal ligament ossification, particularly at C3 where there is least moderate stenosis Interpreted by: Roberta Rosario MD Preliminary Report By: Roberta Rosario MD Electronically signed By Roberta Rosario MD Dictated Date: 07/11/2022 9:03:59 AM Prelim Date: 07/11/2022 9:13:21 AM Sign Date: 07/11/2022 9:13:21 AM Ordering Provider: [address]28-2022 Note ORIGINAL HISTORY: Pain COMPARISON: No TECHNIQUE: Thoracic spine CT with sagittal and coronal reconstructions. This exam was performed according to our departmental dose optimization program, and includes the following measures where applicable: automated exposure control, adjustment of the mAs and/or kVp according to patient size and/or exam, and an iterative reconstruction algorithm. FINDINGS: No acute fracture is seen. Vertebral body heights are maintained. Alignment is within normal limits. There is mild disc space narrowing. Paraspinous tissues are grossly unremarkable. There is a small left effusion and there is patchy airspace opacification in the dependent lungs. IMPRESSION: No acute fracture. Small left effusion and bilateral atelectasis and or consolidation. Interpreted by: Roberta Rosario MD Preliminary Report By: Roberta Rosario MD Electronically signed By Roberta Rosario MD Dictated Date: 07/11/2022 9:02:02 AM Prelim Date: 07/11/2022 9:03:50 AM Sign Date: 07/11/2022 9:03:50 AM Ordering Provider: [address]28-2022 Note ORIGINAL HISTORY: Pain, fall COMPARISON: No FINDINGS: There are no acute fractures or dislocations. There is degenerative joint disease, most prominently at the base of the thumb. There is mild soft tissue swelling. IMPRESSION: No fracture is visualized, although there is mild soft tissue swelling. Degenerative joint disease. Interpreted by: Roberta Rosario MD Preliminary Report By: Roberta Rosario MD Electronically signed By Roberta Rosario MD Dictated Date: 07/11/2022 9:13:34 AM Prelim Date: 07/11/2022 9:14:35 AM Sign Date: 07/11/2022 9:14:35 AM Ordering Provider: [facility]08-28-2022 Note ORIGINAL HISTORY: Fall COMPARISON: 04 December 2021 FINDINGS: No axillary view is provided. No acute fracture is seen. There are degenerative changes, and there is narrowing of the subacromial space. IMPRESSION: No acute fracture is seen. Degenerative changes, including to the rotator cuff. Interpreted by: Roberta Rosario MD Preliminary Report By: Roberta Rosario MD Electronically signed By Roberta Rosario MD Dictated Date: 07/11/2022 8:52:46 AM Prelim Date: 07/11/2022 9:01:52 AM Sign Date: 07/11/2022 9:01:52 AM Ordering Provider: [facility]02-23-2022 Evaluation + Plan note Future Scheduled Tests Laboratory* A1C Hemoglobin 01/06/22 * Lipid Profile 01/06/22 * Complete Metabolic Panel 01/06/22 [facility] 01-21-2022 Hospital Discharge instructions Patient Education 12/04/2021 11:47:23 High Blood Sugar (Hyperglycemia) High Blood Sugar (Hyperglycemia) Too much sugar (glucose) in your blood is called high blood sugar (hyperglycemia). This can lead toa dangerous condition called ketoacidosis. In severe cases, it can lead to fluid loss (dehydration)and coma. Possible causes of high blood sugar Having a poor treatment plan for diabetes Being sick Being under stress Taking certain medicines, such as steroids Eating too much food, especially carbohydrates Being less active than normal Not taking enough diabetes medicine Symptoms of high blood sugar High blood sugar may not cause symptoms. If you do have symptoms, they may include: Thirst Frequent need to urinate Feeling tired or drowsy Nausea and vomiting Itchy, dry skin Blurry vision Fast breathing and breath that smells fruity Weakness Dizziness Wounds or skin infections that don t heal Unexplained weight loss if hyperglycemia lasts for more than a few days What to do Do the following: Check your blood sugar. Drink plenty of sugar-free, caffeine-free liquids such as water. Don t drink fruit juice. Check your blood sugar again every 4 hours. If you take insulin or diabetes medicines, follow your sick-day plan for taking medicine. Call your healthcare provider if you are not able to eat. Check your blood or urine for ketones as directed. Call your provider if your blood sugar and ketones don't go back to your target range. If the value is high, take your diabetes medicines as prescribed. And check your blood sugar more often. Doses of medicines such as insulin can be increased slightly if blood sugars stay high. But your provider must approve this. Preventing high blood sugar To help keep your blood sugar from getting too high: Control stress. When you're ill, follow your sick-day plan. Follow your meal plan. Eat only the amount of food on your meal plan. Stick to your exercise plan. Take your insulin or diabetes medicines as directed by your healthcare team. Also test your blood sugar as directed. If the plan is not working for you, discuss it with your healthcare provider. Other things to do Carry a medical ID card or a [employer] [address]. Or wear a medical alert bracelet or necklace. It should say that you have diabetes. It should also say what to do in case you pass out or go into a coma. Make sure family, friends, and coworkers know the signs of high blood sugar. Tell them what to do if your blood sugar gets very high and you can t help yourself. Talk with your healthcare team about other things you can do to prevent high blood sugar. Special note: Drink plenty of sugar-free and caffeine-free liquids when you feel symptoms of hyperglycemia. Call your healthcare provider if you keep having episodes of high blood sugar. [id number] [employer]. [address] [place] [address], [place] [address]. All rights reserved. This information is not intended as a substitute for professional medical care. Always follow [facility] instructions. 12/04/2021 11:47:20 Fall, Mechanical Mechanical Fall You have had a fall today. It appears that the cause is what is called mechanical. That means that you slipped, tripped, or lost your balance. If your fall had been because of fainting or a seizure, you might need other tests. It is normal to feel sore and tight in your muscles and back the next day, and not just the musclesyou injured at first. Remember, all the parts of your body are connected, so while initially one area hurts, the next day another may hurt. Also, when you injure yourself, it causes inflammation, which then causes the muscles to tighten up and hurt more. After the initial worsening, it should gradually improve over the next few days. Do report more severe pain. Even without a definite head injury, you can still get a concussion from your head suddenly jerkingforward, backward, or sideways when falling. Concussions and even bleeding can still happen, especially if you have had a recent injury or take blood thinner medicine. It is not unusual to have a mild headache and feel tired and even nauseous or dizzy. Home care Rest today and go back to your normal activities when you are feeling back to normal. If you were injured during the fall, follow the advice from your healthcare provider regarding careof your injury. At first, do not try to stretch out the sore spots. If there is a strain, stretching may make it worse. Massage may help relax the muscles without stretching them. You can use an ice pack or cold compress on and off to the sore spots 10 to 20 minutes at a time, as often as you feel comfortable. This may help reduce the inflammation, swelling and pain. If you have any scrapes or abrasions, they usually heal within 10 days. It is important to keep theabrasions clean while they initially start to heal. However, an infection may happen even with proper care, so watch for early signs of infection (such as warmth, redness, or swelling). Medicines Talk to your healthcare provider before taking new medicines, especially if you have other medical problems or are taking other medicines. If you need anything for pain, you can take acetaminophen or ibuprofen, unless you were given a different pain medicine to use. Talk with your healthcare provider before using these medicines if you have chronic liver or kidney disease, or ever had a stomach ulcer or gastrointestinal bleeding, or are taking blood thinner medicines. Be careful if you are given prescription pain medicines, narcotics, or medicine for muscle spasm. They can make you sleepy and dizzy, and can affect your coordination, reflexes, and judgment. Do not drive or do work where you can injure yourself when taking them. Fall prevention Fix, remove, or replace anything that caused your fall. Make your home safe by keeping walkways clear of objects you may trip over. Use nonslip pads under rugs. Don't use small area rugs or throw rugs. Don't walk in poorly lit areas. Don't stand on chairs or wobbly ladders. Use caution when reaching overhead or looking upward. This position can cause a loss of balance. Be sure your shoes fit properly, have nonslip bottoms and are in good condition. Be cautious when going up and down curbs, and walking on uneven sidewalks. If your balance is poor, consider using a cane or walker. Stay as active as you can. Balance, flexibility, strength, and endurance all come from exercise. They all play a role in preventing falls. If you have pets, know where they are before you stand up or walk so you don't trip over them. Limit alcohol intake. Alcohol can cause balance problems and increase the risk of falls. Use night lights. Have your eyes tested to be sure you are seeing well, even if you already wear glasses. Follow-up Follow up with your healthcare provider, or as advised. If X-rays or CT scans were done, you will be notified if there is a change in the reading, especially if it affects treatment. Call 911 Call 911 if any of these happen: Trouble breathing Confused or difficulty arousing Fainting or loss of consciousness Rapid or very slow heart rate Seizure Difficulty with speech or vision, weakness of an arm or leg Difficulty walking or talking, loss of balance, numbness or weakness in one side of your body, or facial droop When to seek medical advice Call your healthcare provider right away if any of these happen: Repeated mechanical falls, or unexplained falls Dizziness Severe headache Blood in vomit, stools (black or red color) [id number] [employer]. [address] [place] [address]. All rights reserved. This information is not intended as a substitute for professional medical care. Always follow yourhealthcare professional's instructions. Follow Up Care 12/04/2021 08:14:09 [facility] Address: [phone] When:2-4 days [facility] 11-02-2021 Hospital Discharge instructions Patient Education 09/15/2021 20:07:33 Treatment for COPD Treatment for COPD Your healthcare provider will prescribe the best treatments for your COPD. Treatment Recommendations include: Medicines. Some medicines help ease symptoms when you have them. Others are taken daily to control swelling (inflammation) in the lungs. Always take your medicines as prescribed. Learn the names of your medicines, as well as how and when to use them. Oxygen therapy. Oxygen may be prescribed if tests show that your blood contains too little oxygen. Smoking. If you smoke, quit. Smoking is the main cause of COPD. Quitting will help you be able to better manage your COPD. Ask your healthcare provider about ways to help you quit smoking. Not getting infections. Infections, such as a cold or the flu, can cause your symptoms to get worse. Try to stay away from people who are sick. Wash your hands often. And ask your healthcare providerabout vaccines for the flu and pneumonia. Coping with shortness of breath Coping tips include: Exercise. Try to be as active as possible. This will improve energy levels and strengthen your muscles, so you can do more. Breathing methods. Ask your healthcare provider or nurse to show you how to do pursed-lip breathing. Balance rest and activity. Each day, try to balance rest periods with activity. For example, you might start the day with getting dressed and eating breakfast. Then you can relax and read the paper. After that, take a brief walk. And then sit with your feet up for a while. Pulmonary rehab (rehabilitation). These programs help with managing your disease, breathing methods, exercise, support, and counseling. To find one, ask your provider or call your local hospital. Healthy eating. Eating a healthy, balanced diet is important to staying as healthy as possible. So is trying to stay at your ideal weight. Make sure you have a lot of fruits and vegetables every day.And also eat balanced portions of whole grains, lean meats and fish, and low-fat dairy products. [id number] [employer] [place] [address], [place] [address]. All rights reserved. This information is not intended as a substitute for professional medical care. Always follow [facility] professional's instructions. 09/15/2021 20:06:55 Medical Screening Exam, Nonemergent Medical Screening Exam: No Emergency You have had a medical screening exam. The results show that you don t have a condition that needs to be treated in the emergency department. You can safely wait until you can see your healthcare provider for evaluation or treatment. It is up to you to make an appointment for follow-up care. Medical emergencies If you think you have a medical emergency, please come to the emergency department. That s what we are here for. A medical emergency might be severe pain. It might be a condition that gets worse. Or it might be problems with a . The emergency department is open to all who need treatment. But if you don t think you have a serious or life-threatening problem, try these other choices. If you have a primary care doctor: Call your doctor before coming to the emergency department. After office hours, someone from your doctor s office is on-call by phone. The person on-call may be able to give you advice over the phone on how to take care of the problem You may be able to get an appointment to see your doctor. If you don t have a primary care doctor: Call the referral doctor or clinic shown below during office hours. You should be able to make an appointment to be seen. If you aren t sure whether you are having an emergency, you can always return to the emergency department to be looked at. Phone advice from the emergency department We are here 24 hours a day to give emergency care. But this hospital does not give phone advice formedical conditions. If you need advice for a condition that can t wait to be seen by your doctor, you will need to come back to this facility in person. [phone] [employer]. [address] [place] [address]. All rights reserved. This information is not intended as a substitute for professional medical care. Always follow yourhealthcare professional's instructions. Follow Up Care 09/15/2021 18:07:55 With:BARBER CARLISLE Address:Unknown When:Within 1 Day(s) Comments:Follow-up as scheduled with your doctor tomorrow.Continue all routine medications.Return to the ED if symptoms worsen. [facility] Evaluation + Plan note Future Appointments Appointment Date:09/16/2021 01:30:00 PM Scheduled Provider:BARBER CARLISLE Location:[facility] Appointment Type:PC OV [facility] Evaluation + Plan note Future Appointments Appointment Date:03/22/2022 02:00:00 PM Scheduled Provider:BARBER CARLISLE Location:[facility] Appointment Type:PC OV [facility] evaluation + Plan note Future Appointments Appointment Date:07/27/2022 09:30:00 AM Scheduled Provider: Location:[facility] Appointment Type:NS Post Op Future Scheduled Tests Laboratory* A1C Hemoglobin 01/06/22 * Lipid Profile 01/06/22 * Complete Metabolic Panel 01/06/22 [facility] evaluation + Plan note Future Appointments Appointment Date:08/12/2022 08:30:00 AM Scheduled Provider: Location:[facility] Appointment Type:NS Post Op Future Scheduled Tests Laboratory* A1C Hemoglobin 01/06/22 * Lipid Profile 01/06/22 * Complete Metabolic Panel 01/06/22 Radiology* XR Spine Cervical AP/LAT 07/27/22 [facility] evaluation + Plan note Future Appointments Appointment Date:09/09/2022 10:00:00 AM Scheduled Provider: Location:[facility] Appointment Type:NS Post Op Future Scheduled Tests Laboratory* A1C Hemoglobin 01/06/22 * Lipid Profile 01/06/22 * Complete Metabolic Panel 01/06/22 [facility] evaluation + Plan note Future Appointments Appointment Date:10/05/2022 01:30:00 PM Scheduled Provider:TRACE MATTHEWS MD Location:[facility] Appointment Type:NS Post Op Future Scheduled Tests Laboratory* A1C Hemoglobin 01/06/22 * Lipid Profile 01/06/22 * Complete Metabolic Panel 01/06/22 Radiology* XR Spine Thoracic 2 Views 09/09/22 * XR Spine Cervical AP/LAT/Flex/Ext 09/09/22 [facility] evaluation + Plan note Future Appointments Appointment Date:10/26/2022 03:00:00 PM Scheduled Provider: Location:RAD Appointment Type:CT Spine Cervical w/o Contrast Appointment Date:11/04/2022 02:15:00 PM Scheduled Provider:TRACE MATTHEWS MD Location:[facility] Appointment Type:Telephone Future Scheduled Tests Laboratory* A1C Hemoglobin 01/06/22 * Lipid Profile 01/06/22 * Complete Metabolic Panel 2/23/22 Radiology* CT Spine Cervical w/o Contrast 10/26/22 [facility] Evaluation + Plan note Future Appointments Appointment Date:11/04/2022 02:15:00 PM Scheduled Provider:TRACE MATTHEWS MD Location:[facility] Appointment Type:Telephone Future Scheduled Tests Laboratory* A1C Hemoglobin 01/06/22 * Lipid Profile 01/06/22 * Complete Metabolic Panel 01/06/22 [facility] Evaluation + Plan note Future Appointments Appointment Date:08/19/2023 02:30:00 PM Scheduled Provider: Location:[facility] Appointment Type:MRI Pancreas Future Scheduled Tests Radiology* MRI Pancreas 08/19/23 [facility] evaluation noteNo assessment information available [facility] Work Phone: evaluation note* Diagnosis Onset Date Resolution Status Iron deficiency anemia acute Vitamin B12 deficiency acute Thrombocytopenia [facility] Work Phone: evaluation note* Diagnosis Onset Date Resolution Status Hyperglycemia acute Metabolic encephalopathy acu te Acute on chronic respiratory failure with hypoxia and hypercapnia chronic COPD (chronic obstructive pulmonary disease) [facility] Work Phone: evaluation note* Diagnosis Onset Date Resolution Status Anemia acute Cardiomyopathy acute Congestive heart failure (CHF) acute Hyperglycemia acute Lower extremity edema acute Lung nodules acute Metabolic encephalopathy acu te On mechanically assisted ventilation acute Pneumonia acute Respiratory disorder with ventilator dependence acute Acute on chronic respiratory failure with hypoxia and hypercapnia chronic COPD (chronic obstructive pulmonary disease) [facility] Work Phone: evaluation note* Diagnosis Onset Date Resolution Status Iron deficiency anemia chron ic Thrombocytopenia chronic Iron deficiency anemia chron ic Thrombocytopenia chronic Anemia acute Congestive heart failure (CHF) acute COPD (chronic obstructive pulmonary disease) chronic Lung nodules chronic Metabolic encephalopathy res olved Pneumonia resolved Breast nodule acute Neck mass acute Iron deficiency anemia chron ic Lung nodules chronic Thrombocytopenia [facility] Work Phone: Evaluation note* Diagnosis Onset Date Resolution Status Iron deficiency anemia chron ic Thrombocytopenia chronic Anemia acute Congestive heart failure (CHF) acute COPD (chronic obstructive pulmonary disease) chronic Lung nodules chronic Metabolic encephalopathy res olved Pneumonia resolved Breast nodule acute Neck mass acute Iron deficiency anemia chron ic Lung nodules chronic Thrombocytopenia [facility] Work Phone: Evaluation note* Diagnosis Onset Date Resolution Status Iron deficiency anemia chron ic Thrombocytopenia chronic Anemia acute Congestive heart failure (CHF) acute COPD (chronic obstructive pulmonary disease) chronic Lung nodules chronic Metabolic encephalopathy res olved Pneumonia resolved Breast nodule acute Neck mass acute Iron deficiency anemia chron ic Lung nodules chronic Thrombocytopenia chronic Breast nodule acute Neck mass acute Iron deficiency anemia chron ic Lung nodules chronic Thrombocytopenia chronic Breast nodule acute [facility] Work Phone: Evaluation note* Diagnosis Onset Date Resolution Status Breast nodule acute Neck mass acute Iron deficiency anemia chron ic Lung nodules chronic Thrombocytopenia chronic Breast nodule acute Breast nodule acute Neck mass acute Iron deficiency anemia chron ic Lung nodules chronic Thrombocytopenia [facility] Work Phone: Evaluation note* Diagnosis Onset Date Resolution Status Breast nodule acute Neck mass acute Iron deficiency anemia chron ic Lung nodules chronic Thrombocytopenia [facility] Work Phone: Evaluation note* Diagnosis Onset Date Resolution Status Hematuria acute Iron deficiency anemia chron ic Lung nodules chronic Thrombocytopenia [facility] Work Phone: Evaluation note* Diagnosis Colovaginal fistula- Primary Colovaginal fistula Acquired thrombocytopenia (CMS/HCC) Secondary thrombocytopenia Encounter for preprocedural cardiovascular examination Dilated cardiomyopathy (CMS/HCC) Other primary cardiomyopathies Dilated cardiomyopathy (CMS/HCC) Other primary cardiomyopathies documented in this encounter [facility] Work Phone: Evaluation note* Diagnosis Diverticulitis- Primary Diverticulitis of colon (without mention of hemorrhage) Colovaginal fistula- Primary Diverticulitis Diverticulitis of colon (without mention of hemorrhage) documented in this encounter [facility] Work Phone: Evaluation note* Diagnosis Preop cardiovascular exam- Primary Pre-operative cardiovascular examination Chronic systolic heart failure (CMS/HCC) Chronic systolic heart failure documented in this encounter [facility] Work Phone: Evaluation note* Diagnosis Encounter for preadmission testing documented in this encounter [facility] Work Phone: Evaluation note* Diagnosis Encounter for preadmission testing documented in this encounter [facility] Work Phone: Hospital course Narrative No data available for this section [facility] Hospital Discharge instructions No data available for this section [facility] Hospital Discharge instructions Additional Instructions Your CT showed inflammation of the sigmoid colon as well as diverticulitis. This case was discussed with our GI doctor on-call, Dr. Raya. He recommended treating you for sigmoid diverticulitis with antibiotics (ciprofloxacin and Flagyl/metronidazole). Once you have completed the 2-week course of antibiotics he recommend starting you on an anti-inflammatory for possible inflammatory bowel disease called mesalamine. Do not start this until after you finish the antibiotics. Please follow-up with your GI doctor as scheduled this month. Return to ER if you have a progression or worsening of your symptoms.[facility] Work Phone: Progress note No data available for this section [facility] Summary Purpose Family History No Family History Records Found Sister Name Dates Details Family history of malignant neoplasm of breast(V16.3, Z80.3) Status:Active Relationship Condition Age at Onset Recorded Date/T ob[place] sister Malignant neoplasm of breast Unknown grandmother Diabetes mellitus Unknown Advance Directives No Advanced Directives Records Found Advance Directive Response Recorded Date/ Time Living Will No November 24 9:00am Power of Director Sales No November 24, 2021 9:00am Advance Directive Response Recorded Date/ Time Living Will No November 24 8:00am Power of Director Sales No November 24, 2021 8:00am Advance Directive Response Recorded Date/ Time Living Will No April 19, 2023 4 :46pm Power of Director Sales No April 19, 2023 4:46pm Advance Directive Response Recorded Date/ Time Living Will No July 14 4:04pm Power of Director Sales No July 14, 023 4:04pm Advance Directive Response Recorded Date/ Time Living Will No August 09, 2023 11:01pm Power of Director Sales No July 11:01pm Advance Directive Response Recorded Date/ Time Living Will No September 14 10:49pm Power of Director Sales No September 14, 2023 10:49pm Latest Code Status on File Code Status Date Activated Date Inactivated Comments Full Code 09/23/2023 7:44 AM Question Answer Comments Plan of Care: Code Status Discussion Completed Decision Maker: Patient Code Status History Code Status Date Activated Date Inactivated Comments Full Code 09/16/2023 2:09 PM 09/23/2023 7:44 AM Question Answer Comments Plan of Care: Code Status Discussion Completed Decision Maker: Patient Full Code 09/16/2023 7:47 AM 09/16/2023 2:09 PM Question Answer Comments Plan of Care: Code Status Discussion Completed Decision Maker: Patient DNR 09/16/2023 3:15 AM 09/16/2023 7:47 AM Question Answer Comments Plan of Care: Code Status Discussion Completed Decision Maker: Patient Full Code 09/16/2023 3:14 AM 09/16/2023 3:15 AM Question Answer Comments Plan of Care: Code Status Discussion Completed Decision Maker: Patient Advance Directive Response Recorded Date/ Time Living Will No September 14 9:49pm Power of Director Sales No September 14, 2023 9:49pm Latest Code Status on File Code Status Date Activated Date Inactivated Comments Full Code 09/23/2023 7:44 AM 09/28/2023 1:49 PM Question Answer Comments Plan of Care: Code Status Discussion Completed Decision Maker: Patient Code Status History Code Status Date Activated Date Inactivated Comments Full Code 09/16/2023 2:09 PM 09/23/2023 7:44 AM Question Answer Comments Plan of Care: Code Status Discussion Completed Decision Maker: Patient Full Code 09/16/2023 7:47 AM 09/16/2023 2:09 PM Question Answer Comments Plan of Care: Code Status Discussion Completed Decision Maker: Patient DNR 09/16/2023 3:15 AM 09/16/2023 7:47 AM Question Answer Comments Plan of Care: Code Status Discussion Completed Decision Maker: Patient Full Code 09/16/2023 3:14 AM 09/16/2023 3:15 AM Question Answer Comments Plan of Care: Code Status Discussion Completed Decision Maker: Patient Latest Code Status on File Code Status Date Activated Date Inactivated Comments Full Code 09/23/2023 7:44 AM 09/28/2023 1:49 PM Question Answer Comments Plan of Care: Code Status Discussion Completed Decision Maker: Patient Chief Complaint and Reason for Visit Chief Complaint GROUP HOME LABWORK GROUP HOME LAB WORK Chief Complaint GROUP HOME LABWORK GROUP HOME LAB WORK GROUP HOME LABWORK Chief Complaint GROUP HOME LABWORK GROUP HOME LAB WORK GROUP HOME LAB WORK GROUP HOME LABWORK GROUP HOME LABWORK Chief Complaint GROUP HOME LABWORK GROUP HOME LAB WORK GROUP HOME LAB WORK GROUP HOME LABWORK LABWORK GROUP HOME LABWORK 2MO -LABS- NEW PT - PANCYTOPENIA Reason for Visit Iron deficiency anem ia Vitamin B12 deficiency Thrombocytopenia Chief Complaint 2MO -LABS- NEW PT - PANCYTOPENIA 2MO -LABS- 2MO -LABS- ACUTE ON CHRONIC HYPOXIC AND HYPERCAPNIC Reason for Visit Hyperglycemia Metabolic encephalopathy Acute on chronic respiratory failure with hypoxia and hypercapnia COPD (chronic obstructive pulmonary disease) Chief Complaint 2MO -LABS- NEW PT - PANCYTOPENIA 2MO -LABS- 2MO -LABS- GROUP HOME LABWORK ACUTE ON CHRONIC HYPOXIC AND HYPERCAPNIC ACUTE ON CHRONIC HYPOXIC AND HYPERCAPNIC ACUTE ON CHRONIC HYPOXIC AND HYPERCAPNIC ACUTE ON CHRONIC HYPOXIC AND HYPERCAPNIC ACUTE ON CHRONIC HYPOXIC AND HYPERCAPNIC ACUTE ON CHRONIC HYPOXIC AND HYPERCAPNIC ACUTE ON CHRONIC HYPOXIC AND HYPERCAPNIC ACUTE ON CHRONIC HYPOXIC AND HYPERCAPNIC ACUTE ON CHRONIC HYPOXIC AND HYPERCAPNIC ACUTE ON CHRONIC HYPOXIC AND HYPERCAPNIC ACUTE ON CHRONIC HYPOXIC AND HYPERCAPNIC ACUTE ON CHRONIC HYPOXIC AND HYPERCAPNIC ACUTE ON CHRONIC HYPOXIC AND HYPERCAPNIC ACUTE ON CHRONIC HYPOXIC AND HYPERCAPNIC ACUTE ON CHRONIC HYPOXIC AND HYPERCAPNIC ACUTE ON CHRONIC HYPOXIC AND HYPERCAPNIC ACUTE ON CHRONIC HYPOXIC AND HYPERCAPNIC ACUTE ON CHRONIC HYPOXIC AND HYPERCAPNIC ACUTE ON CHRONIC HYPOXIC AND HYPERCAPNIC Reason for Visit Anemia Cardiomyopathy Congestive heart failure (CHF) Hyperglycemia Lower extremity edema Lung nodules Metabolic encephalopathy On mechanically assisted ventilation Pneumonia Respiratory disorder with ventilator dependence Acute on chronic respiratory failure with hypoxia and hypercapnia COPD (chronic obstructive pulmonary disease) Chief Complaint NEW PT - PANCYTOPENI A 2MO -LABS- GROUP HOME LABWORK ACUTE ON CHRONIC HYPOXIC AND HYPERCAPNIC ACUTE ON CHRONIC HYPOXIC AND HYPERCAPNIC ACUTE ON CHRONIC HYPOXIC AND HYPERCAPNIC ACUTE ON CHRONIC HYPOXIC AND HYPERCAPNIC ACUTE ON CHRONIC HYPOXIC AND HYPERCAPNIC ACUTE ON CHRONIC HYPOXIC AND HYPERCAPNIC ACUTE ON CHRONIC HYPOXIC AND HYPERCAPNIC ACUTE ON CHRONIC HYPOXIC AND HYPERCAPNIC ACUTE ON CHRONIC HYPOXIC AND HYPERCAPNIC ACUTE ON CHRONIC HYPOXIC AND HYPERCAPNIC ACUTE ON CHRONIC HYPOXIC AND HYPERCAPNIC ACUTE ON CHRONIC HYPOXIC AND HYPERCAPNIC ACUTE ON CHRONIC HYPOXIC AND HYPERCAPNIC ACUTE ON CHRONIC HYPOXIC AND HYPERCAPNIC ACUTE ON CHRONIC HYPOXIC AND HYPERCAPNIC ACUTE ON CHRONIC HYPOXIC AND HYPERCAPNIC ACUTE ON CHRONIC HYPOXIC AND HYPERCAPNIC ACUTE ON CHRONIC HYPOXIC AND HYPERCAPNIC ACUTE ON CHRONIC HYPOXIC AND HYPERCAPNIC GROUP HOME LABWORK 3MO LABS 2MO -LABS- Reason for Visit Iron deficiency anem ia Thrombocytopenia Iron deficiency anemia Thrombocytopenia Anemia Congestive heart failure (CHF) COPD (chronic obstructive pulmonary disease) Lung nodules Metabolic encephalopathy Pneumonia Breast nodule Neck mass Iron deficiency anemia Lung nodules Thrombocytopenia Chief Complaint 2MO -LABS- GROUP HOME LABWORK ACUTE ON CHRONIC HYPOXIC AND HYPERCAPNIC ACUTE ON CHRONIC HYPOXIC AND HYPERCAPNIC ACUTE ON CHRONIC HYPOXIC AND HYPERCAPNIC ACUTE ON CHRONIC HYPOXIC AND HYPERCAPNIC ACUTE ON CHRONIC HYPOXIC AND HYPERCAPNIC ACUTE ON CHRONIC HYPOXIC AND HYPERCAPNIC ACUTE ON CHRONIC HYPOXIC AND HYPERCAPNIC ACUTE ON CHRONIC HYPOXIC AND HYPERCAPNIC ACUTE ON CHRONIC HYPOXIC AND HYPERCAPNIC ACUTE ON CHRONIC HYPOXIC AND HYPERCAPNIC ACUTE ON CHRONIC HYPOXIC AND HYPERCAPNIC ACUTE ON CHRONIC HYPOXIC AND HYPERCAPNIC ACUTE ON CHRONIC HYPOXIC AND HYPERCAPNIC ACUTE ON CHRONIC HYPOXIC AND HYPERCAPNIC ACUTE ON CHRONIC HYPOXIC AND HYPERCAPNIC ACUTE ON CHRONIC HYPOXIC AND HYPERCAPNIC ACUTE ON CHRONIC HYPOXIC AND HYPERCAPNIC ACUTE ON CHRONIC HYPOXIC AND HYPERCAPNIC ACUTE ON CHRONIC HYPOXIC AND HYPERCAPNIC GROUP HOME LABWORK GROUP HOME LABWORK GROUP HOME LABWORK 3MO LABS 2MO -LABS- NODULE ON NECK, ? CANCER Reason for Visit Iron deficiency anem ia Thrombocytopenia Anemia Congestive heart failure (CHF) COPD (chronic obstructive pulmonary disease) Lung nodules Metabolic encephalopathy Pneumonia Breast nodule Neck mass Iron deficiency anemia Lung nodules Thrombocytopenia Chief Complaint 2MO -LABS- GROUP HOME LABWORK ACUTE ON CHRONIC HYPOXIC AND HYPERCAPNIC ACUTE ON CHRONIC HYPOXIC AND HYPERCAPNIC ACUTE ON CHRONIC HYPOXIC AND HYPERCAPNIC ACUTE ON CHRONIC HYPOXIC AND HYPERCAPNIC ACUTE ON CHRONIC HYPOXIC AND HYPERCAPNIC ACUTE ON CHRONIC HYPOXIC AND HYPERCAPNIC ACUTE ON CHRONIC HYPOXIC AND HYPERCAPNIC ACUTE ON CHRONIC HYPOXIC AND HYPERCAPNIC ACUTE ON CHRONIC HYPOXIC AND HYPERCAPNIC ACUTE ON CHRONIC HYPOXIC AND HYPERCAPNIC ACUTE ON CHRONIC HYPOXIC AND HYPERCAPNIC ACUTE ON CHRONIC HYPOXIC AND HYPERCAPNIC ACUTE ON CHRONIC HYPOXIC AND HYPERCAPNIC ACUTE ON CHRONIC HYPOXIC AND HYPERCAPNIC ACUTE ON CHRONIC HYPOXIC AND HYPERCAPNIC ACUTE ON CHRONIC HYPOXIC AND HYPERCAPNIC ACUTE ON CHRONIC HYPOXIC AND HYPERCAPNIC ACUTE ON CHRONIC HYPOXIC AND HYPERCAPNIC ACUTE ON CHRONIC HYPOXIC AND HYPERCAPNIC GROUP HOME LABWORK GROUP HOME LABWORK GROUP HOME LABWORK 3MO LABS 2MO -LABS- NODULE ON NECK, ? CANCER 2WKS NO LABS REVIEW MAMMO/CT L BREAST NODULE L BREAST NODULE LABWORK Reason for Visit Iron deficiency anem ia Thrombocytopenia Anemia Congestive heart failure (CHF) COPD (chronic obstructive pulmonary disease) Lung nodules Metabolic encephalopathy Pneumonia Breast nodule Neck mass Iron deficiency anemia Lung nodules Thrombocytopenia Breast nodule Neck mass Iron deficiency anemia Lung nodules Thrombocytopenia Breast nodule Chief Complaint 2MO -LABS- GROUP HOME LABWORK ACUTE ON CHRONIC HYPOXIC AND HYPERCAPNIC ACUTE ON CHRONIC HYPOXIC AND HYPERCAPNIC ACUTE ON CHRONIC HYPOXIC AND HYPERCAPNIC ACUTE ON CHRONIC HYPOXIC AND HYPERCAPNIC ACUTE ON CHRONIC HYPOXIC AND HYPERCAPNIC ACUTE ON CHRONIC HYPOXIC AND HYPERCAPNIC ACUTE ON CHRONIC HYPOXIC AND HYPERCAPNIC ACUTE ON CHRONIC HYPOXIC AND HYPERCAPNIC ACUTE ON CHRONIC HYPOXIC AND HYPERCAPNIC ACUTE ON CHRONIC HYPOXIC AND HYPERCAPNIC ACUTE ON CHRONIC HYPOXIC AND HYPERCAPNIC ACUTE ON CHRONIC HYPOXIC AND HYPERCAPNIC ACUTE ON CHRONIC HYPOXIC AND HYPERCAPNIC ACUTE ON CHRONIC HYPOXIC AND HYPERCAPNIC ACUTE ON CHRONIC HYPOXIC AND HYPERCAPNIC ACUTE ON CHRONIC HYPOXIC AND HYPERCAPNIC ACUTE ON CHRONIC HYPOXIC AND HYPERCAPNIC ACUTE ON CHRONIC HYPOXIC AND HYPERCAPNIC ACUTE ON CHRONIC HYPOXIC AND HYPERCAPNIC GROUP HOME LABWORK GROUP HOME LABWORK GROUP HOME LABWORK 3MO LABS 2MO -LABS- NODULE ON NECK, ? CANCER 2WKS NO LABS REVIEW MAMMO/CT L BREAST NODULE L BREAST NODULE LABWORK abd pain Reason for Visit Iron deficiency anem ia Thrombocytopenia Anemia Congestive heart failure (CHF) COPD (chronic obstructive pulmonary disease) Lung nodules Metabolic encephalopathy Pneumonia Breast nodule Neck mass Iron deficiency anemia Lung nodules Thrombocytopenia Breast nodule Neck mass Iron deficiency anemia Lung nodules Thrombocytopenia Breast nodule Chief Complaint 2MO -LABS- GROUP HOME LABWORK ACUTE ON CHRONIC HYPOXIC AND HYPERCAPNIC ACUTE ON CHRONIC HYPOXIC AND HYPERCAPNIC ACUTE ON CHRONIC HYPOXIC AND HYPERCAPNIC ACUTE ON CHRONIC HYPOXIC AND HYPERCAPNIC ACUTE ON CHRONIC HYPOXIC AND HYPERCAPNIC ACUTE ON CHRONIC HYPOXIC AND HYPERCAPNIC ACUTE ON CHRONIC HYPOXIC AND HYPERCAPNIC ACUTE ON CHRONIC HYPOXIC AND HYPERCAPNIC ACUTE ON CHRONIC HYPOXIC AND HYPERCAPNIC ACUTE ON CHRONIC HYPOXIC AND HYPERCAPNIC ACUTE ON CHRONIC HYPOXIC AND HYPERCAPNIC ACUTE ON CHRONIC HYPOXIC AND HYPERCAPNIC ACUTE ON CHRONIC HYPOXIC AND HYPERCAPNIC ACUTE ON CHRONIC HYPOXIC AND HYPERCAPNIC ACUTE ON CHRONIC HYPOXIC AND HYPERCAPNIC ACUTE ON CHRONIC HYPOXIC AND HYPERCAPNIC ACUTE ON CHRONIC HYPOXIC AND HYPERCAPNIC ACUTE ON CHRONIC HYPOXIC AND HYPERCAPNIC ACUTE ON CHRONIC HYPOXIC AND HYPERCAPNIC GROUP HOME LABWORK GROUP HOME LABWORK GROUP HOME LABWORK 3MO LABS 2MO -LABS- NODULE ON NECK, ? CANCER 2WKS NO LABS REVIEW MAMMO/CT GROUP HOME LABWORK L BREAST NODULE L BREAST NODULE LABWORK abd pain Reason for Visit Iron deficiency anem ia Thrombocytopenia Anemia Congestive heart failure (CHF) COPD (chronic obstructive pulmonary disease) Lung nodules Metabolic encephalopathy Pneumonia Breast nodule Neck mass Iron deficiency anemia Lung nodules Thrombocytopenia Breast nodule Neck mass Iron deficiency anemia Lung nodules Thrombocytopenia Breast nodule Chief Complaint NODULE ON NECK, ? [place] NCER 2WKS NO LABS REVIEW MAMMO/CT GROUP HOME LABWORK L BREAST NODULE L BREAST NODULE LABWORK abd pain 2MO -LABS- 6WKS LABS REVIEW BIOPSY/PATH GROUP HOME LAB WORK Reason for Visit Breast nodule Neck mass Iron deficiency anemia Lung nodules Thrombocytopenia Breast nodule Breast nodule Neck mass Iron deficiency anemia Lung nodules Thrombocytopenia Chief Complaint NODULE ON NECK, ? [place] NCER 2WKS NO LABS REVIEW MAMMO/CT GROUP HOME LABWORK L BREAST NODULE L BREAST NODULE LABWORK abd pain 2MO -LABS- 6WKS LABS REVIEW BIOPSY/PATH GROUP HOME LAB WORK GROUP HOME LAB WORK ABD PAIN Reason for Visit Breast nodule Neck mass Iron deficiency anemia Lung nodules Thrombocytopenia Breast nodule Breast nodule Neck mass Iron deficiency anemia Lung nodules Thrombocytopenia Chief Complaint LABWORK abd pain 2MO -LABS- 6WKS LABS REVIEW BIOPSY/PATH GROUP HOME LAB WORK GROUP HOME LAB WORK ABD PAIN Reason for Visit Breast nodule Neck mass Iron deficiency anemia Lung nodules Thrombocytopenia Chief Complaint LABWORK abd pain 2MO -LABS- 6WKS LABS REVIEW BIOPSY/PATH GROUP HOME LAB WORK GROUP HOME LAB WORK ABD PAIN dizziness Reason for Visit Breast nodule Neck mass Iron deficiency anemia Lung nodules Thrombocytopenia Chief Complaint 2MO -LABS- 6WKS LABS REVIEW BIOPSY/PATH GROUP HOME LAB WORK GROUP HOME LAB WORK ABD PAIN dizziness GROUP HOME LABWORK Reason for Visit Breast nodule Neck mass Iron deficiency anemia Lung nodules Thrombocytopenia Chief Complaint GROUP HOME LAB WOR K GROUP HOME LAB WORK ABD PAIN dizziness GROUP HOME LABWORK LABWORK Chief Complaint GROUP HOME LAB WOR K GROUP HOME LAB WORK ABD PAIN dizziness GROUP HOME LABWORK LABWORK DISCUSS OPTIONS-NO LABS 2MO -LABS- abd pain Reason for Visit Hematuria Iron deficiency anemia Lung nodules Thrombocytopenia Chief Complaint GROUP HOME LAB WOR K GROUP HOME LAB WORK ABD PAIN dizziness GROUP HOME LABWORK LABWORK DISCUSS OPTIONS-NO LABS 2MO -LABS- GROUP HOME LABWORK abd pain abd pain abd pain Reason for Visit Hematuria Iron deficiency anemia Lung nodules Thrombocytopenia Chief Complaint GROUP HOME LAB WOR K ABD PAIN dizziness GROUP HOME LABWORK LABWORK DISCUSS OPTIONS-NO LABS 2MO -LABS- GROUP HOME LABWORK abd pain abd pain abd pain LEFT BREAST FOLLOW UP FIBROADENOMA Reason for Visit Hematuria Iron deficiency anemia Lung nodules Thrombocytopenia Reason for Referral Specialty Diagnoses / Procedures Referred By Bassem rocha Referred To Contact Diagnoses Encounter for preadmission testing Procedures ECG 12 lead [place], [place] [id number] [place] [address] Referral ID Status Reason Start Date Expiration Date V isits Requested Visits Authorized [id number] Pending Review 10/28/2023 10/27/2024 1 1 Specialty Diagnoses / Procedures Referred By Contac t Referred To Contact Diagnoses Colovaginal fistula Nancy Treviño, MACHINE MAINTENANCE REPAIRER-TRAFFIC OR SYSTEM DISPATCHER [id number] [facility] Department [place] [address] Referral ID Status Reason Start Date Expiration Date V isits Requested Visits Authorized [id number] Pending Review 09/28/2023 09/27/2024 1 1 Additional Source Comments INFORMATION SOURCE (unrecogn ized section and content) DATE CREATED AUTHOR 05/09/2018 [facility] DATE CREATED AUTHOR AUTHOR'S ORGANIZ ATION 07/14/2020 [employer] DATE CREATED AUTHOR AUTHOR'S ORGANIZ ATION 12/01/2021 [facility] DATE CREATED AUTHOR AUTHOR'S ORGANIZ ATION 11/06/2022 [facility] DATE CREATED AUTHOR AUTHOR'S ORGANIZ ATION 09/16/2023 [facility] ([place]) DATE CREATED AUTHOR AUTHOR'S ORGANIZ ATION 10/19/2023 [facility] DATE CREATED AUTHOR AUTHOR'S ORGANIZ ATION 11/13/2023 [facility] DATE CREATED AUTHOR AUTHOR'S ORGANIZ ATION 07/25/2024 [facility] DATE CREATED AUTHOR AUTHOR'S ORGANIZ ATION 09/07/2025 [facility] Care Team (unrecognized sect ion and content) Care Team Personnel Name: BARBER CARLISLE MACHINE MAINTENANCE REPAIRER-TRAFFIC OR SYSTEM DISPATCHER Position: P4 Advanced Practice Nurse Member Role: Primary Care Physician Address: Address: [address] [place] [address]- Name: MARIANA RAMOS MD Position: ED Physician Member Role: Attending Physician Address: Address: [address] [place] [address]- Care Team Related Persons Name: JOCY RUIZ Address: Home [address] [place], [place] [phone] [place] Name: JOCY RUIZ Address: Home [address] [place], [place] [phone] [place] Name: JOCY RUIZ Address: Home [address] [place], [place] [id number] [place] Name: JOCY RUIZ Address: Home [address] [place], [place] [id number] [place] Name: JOCY RUIZ Address: Home [address] [place], [place] [phone] [place] Name: JOCY RUIZ Address: Home [address] [place], [place] [id number] [place] Name: JOCY RUIZ Address: Home [address] [place], [place] [phone] [place] Name: JOCY RAMIREZ Care Team Personnel Name: BARBER CARLISLE Position: P4 Advanced Practice Nurse Member Role: Primary Care Physician Address: Address: [address] [place] [address]- [place] Care Team Related Persons Name: JOCY RUIZ Address: Home [address] [place], [place] [phone] [place] Name: JOCY RUIZ Address: [address] [place] [id number] [place] Name: JOCY RUIZ Address: Home [address] [place], [place] [id number] [place] Name: JOCY RUIZ Address: Home [address] [place] [id number] [place] Name: JOCY RUIZ Address: Home [address] [place] [id number] [place] Name: JOCY RUIZ Address: Home [address] [place] [id number] [place] Name: JOCY RUIZ Address: Home [address] [place] [id number] [place] Name: JOCY RAMIREZ Care Team Personnel Name: BARBER CARLISLE Position: P4 Advanced Practice Nurse Med Service: Active Provider Member Role: Primary Care Physician Address: Address: [address] [place], [place] [address] Care Team Related Persons Name: JOCY RUIZ Address: Home [address] [place], [place] [id number] [place] Name: JOCY RUIZ Address: Home [address] [place], [place] [id number] [place] Name: JOCY RUIZ Address: Home [address] [place] [id number] [place] Name: JOCY RUIZ Address: Home [address] [place], [place] [id number] [place] Name: JOCY RUIZ Address: Home [address] [place], [place] [id number] [place] Name: JOCY RUIZ Address: Home [address] [place] [id number] [place] Name: JOCY RUIZ Address: Home [address] [place], [place] [id number] [place] Name: JOCY RAMIREZ Care Team Personnel Name: BARBER CARLISLE Position: P4 Advanced Practice Nurse Med Service: Active Provider Member Role: Primary Care Physician Address: [facility] [address] [facility] [address] [place] [place] [address] Care Team Related Persons Name: JOCY RUIZ Address: Home [address] [place] [id number] [place] Name: JOCY RUIZ Address: Home [address] [place], [place] [id number] [place] Name: JOCY RUIZ Address: Home [address] [place], [place] [id number] [place] Name: JOCY RUIZ Address: Home [address] [place] [id number] [place] Name: JOCY RUIZ Address: Home [address] [place], [place] [id number] [place] Name: JOCY RUIZ Address: Home [address] [place] [address] [place] Name: JOCY RUIZ Address: Home [address] [place], [place] [phone] [place] Name: JOCY RAMIREZ Care Team Personnel Name: BARBER CARLISLE Position: P4 Advanced Practice Nurse Med Service: Active Provider Member Role: Primary Care Physician Address: Address: [address] [place], [place] [address] Care Team Related Persons Name: JOCY RUIZ Address: Home [address] [place] [id number] [place] Name: JOCY RUIZ Address: Home [address] [place] [phone] [place] Name: JOCY RUIZ Address: Home [address] [place] [id number] [place] Name: JOCY RUIZ Address: Home [address] [place] [address] [place] Name: JOCY RUIZ Address: Home [address] [place] [phone] [place] Name: JOCY RUIZ Address: Home [address] [place] [phone] [place] Name: JOCY RUIZ Address: Home [address] [place] [phone] [place] Name: JOCY RAMIREZ Care Team Personnel Name: BARBER CARLISLETRAFFIC OR SYSTEM DISPATCHER Position: P4 Advanced Practice Nurse Member Role: Primary Care Physician Address: Address: [address] [place] [address] [place] Care Team Related Persons Name: JOCY RUIZ Address: Home [address] [place] [phone] [place] Name: JOCY RUIZ Address: Home [address] [place] [id number] [place] Name: JOCY RUIZ Address: Home [address] [place] [phone] [place] Name: JOCY RUIZ Address: Home [address] [place] [id number] [place] Name: JOCY RUIZ Address: Home [address] [place] [phone] [place] Name: JOCY RUIZ Address: Home [address] [place] [phone] [place] Name: JOCY RUIZ Address: Home [address] [place] [phone] [place] Name: JOCY RAMIREZ Care Team Personnel Name: BARBER CARLISLETRAFFIC OR SYSTEM DISPATCHER Position: P4 Advanced Practice Nurse Member Role: Primary Care Physician Address: Address: [address] [facility] [address] [place] [address] Care Team Related Persons Name: JOCY RUIZ Address: Home [address] [place] [phone] [place] Name: JOCY RUIZ Address: Home [address] [place] [id number] [place] Name: JOCY RUIZ Address: Home [address] [place] [phone] [place] Name: JOCY RUIZ Address: Home [address] [place] [id number] [place] Name: JOCY RUIZ Address: Home [address] [place] [address] [place] Name: JOCY RUIZ Address: Home [address] [place] [phone] [place] Name: JOCY RUIZ Address: [address] [facility] [place] [place] [id number] [place] Name: JOCY RAMIREZ Care Team Personnel Name: BARBER CARLISLE Position: P4 Advanced Practice Nurse Member Role: Primary Care Physician Address: Address: [address] [place] [address] [place] Care Team Related Persons Name: JOCY RUIZ Address: Home [address] [place] [phone] [place] Name: JOCY RUIZ Address: Home [address] [place] [id number] [place] Name: JOCY RUIZ Address: Home [address] [place] [address] [place] Name: JOCY RUIZ Address: Home [address] [place] [phone] [place] Name: JOCY RUIZ Address: Home [address] [place] [phone] [place] Name: JOCY RUIZ Address: Home [address] [place], [place] [phone] [place] Name: JOCY RUIZ Address: Home [address] [place], [place] [phone] [place] Name: JOCY RAMIREZ Care Team Personnel Name: BARBER CARLISLETRAFFIC OR SYSTEM DISPATCHER Position: P4 Advanced Practice Nurse Member Role: Primary Care Physician Address: Address: [address] [place] [address] [facility] [place] [address] [place] Care Team Related Persons Name: SARA JOCY A Address: Home [address] [place] [phone] [place] Name: JOCY RUIZ Address: Home [address] [place] [phone] [place] Name: SARA JOCY Denny Address: Home [address] [place] [phone] [place] Name: JOCY RUIZ Address: Home [address] [place], [place] [id number] Name: JOCY RUIZ Address: Home [address] [place], [place] [phone] Name: CATARINA RUIZE Denny Address: Home [address] [place] [phone] [place] Name: JOCY RUIZ Address: Home [address] [place] [phone] [place] Name: VALERIY JOCY Goals (unrecognized section and content) Goals may be documented in a n alternate section Care Teams (unrecognized sec tion and content) Team Status: Active Member Role Status Dates Barber Carlisle FARM MACHINERY ENGINE MECHANIC, FARM MACHINERY ENGINE MECHANIC-C Primary Care Provider Active Team Status: Inactive Member Role Status Meche Carilsle FARM MACHINERY ENGINE MECHANIC, FARM MACHINERY ENGINE MECHANIC-C Primary Care Provider, Referri ng Provider Active Dr. Delfin Jeffries MD Attending Provider Active Team Status: Inactive Member Role Status Dates Barber Carlisle FARM MACHINERY ENGINE MECHANIC, FARM MACHINERY ENGINE MECHANIC-C Primary Care Provider Active Stef ELMORE Attending Provider Active Team Status: Active Member Role Status Dates Barber Carlisle FARM MACHINERY ENGINE MECHANIC, FARM MACHINERY ENGINE MECHANIC-C Primary Care Provider Active Dr. Delfin Jeffries MD Attending Provider, Referring Pro vider Active Team Status: Active Member Role Status Meche Carlisle FARM MACHINERY ENGINE MECHANIC, FARM MACHINERY ENGINE MECHANIC-C Primary Care Provider Active Jonathan ELMORE MD Attending Provider Active Team Status: Active Member Role Status Meche Carlisle FARM MACHINERY ENGINE MECHANIC, FARM MACHINERY ENGINE MECHANIC-C Primary Care Provider Active Dr. Ellis Tsai MD Emergency Provider Active Dr. Rebecca Resendiz DO Admit Provider, Attending Provide r Active Team Status: Active Member Role Status Meche Carlisle FARM MACHINERY ENGINE MECHANIC, FARM MACHINERY ENGINE MECHANIC-C Primary Care Provider Active Dr. Ellis Tsai MD Emergency Provider Active Dr. Rebecca Resendiz , DO Admit Provider, Att ending Provider, Other Provider Active Dr. Serge Banks MD Other Provider Active Dr. Ajit Mcgill , DO Other Provider Active Dr. Martín Monique MD Other Provider Active Dr. Krzysztof Pennington MD Other Provider Active Viji Richey FARM MACHINERY ENGINE MECHANIC, FARM MACHINERY ENGINE MECHANIC-C Other Provider Active Team Status: Active Member Role Status Dates Barber Carlisle NP, FARM MACHINERY ENGINE MECHANIC-C Primary Care Provider Active Dr. Ellis Tsai MD Emergency Provider Active Dr. Rebecca Resendiz , DO Admit Provider, Other Provider Ac tive Dr. Serge Banks MD Other Provider Active Dr. Ajit Mcgill , DO Other Provider Active Dr. Martín Monique MD Attending Provider, Other Pro vider Active Dr. Krzysztof Pennington MD Other Provider Active Viji Richey FARM MACHINERY ENGINE MECHANIC, FARM MACHINERY ENGINE MECHANIC-C Other Provider Active Dr. Hernando Padron MD Other Provider Active Dr. Thomas Ahumada MD Other Provider Active Team Status: Active Member Role Status Dates Barber Carlisle FARM MACHINERY ENGINE MECHANIC, FARM MACHINERY ENGINE MECHANIC-C Primary Care Provider Active Dr. Miroslava Gonzalez MD Attending Provider Active Team Status: Active Member Role Status Dates Barber Carlisle NP, FARM MACHINERY ENGINE MECHANIC-C Primary Care Provider Active Dr. Ellis Tsai MD Emergency Provider Active Dr. Rebecca Resendiz , DO Admit Provider, Other Provider Ac tive Dr. Serge Banks MD Other Provider Active Dr. Ajit Mcgill , Other Provider Active Dr. Martín Monique MD Other Provider Active Dr. rKzysztof Pennington MD Other Provider Active Viji Richey NP, FARM MACHINERY ENGINE MECHANIC-C Other Provider Active Dr. Hernando Padron MD Attending Provider, Other Provid er Active Dr. Thomas Ahumada MD Other Provider Active Team Status: Active Member Role Status Dates Barber Carlisle NP, FARM MACHINERY ENGINE MECHANIC-C Primary Care Provider Active Dr. Ellis Tsai MD Emergency Provider Active Dr. Rebecca Resendiz , DO Admit Provider, Other Provider Ac tive Dr. Serge Banks MD Other Provider Active Dr. Ajit Mcgill , DO Other Provider Active Dr. Martín Monique MD Other Provider Active Dr. Krzysztof Pennington MD Other Provider Active Viji Richey FARM MACHINERY ENGINE MECHANIC, FARM MACHINERY ENGINE MECHANIC-C Other Provider Active Dr. Hernando Padron MD Other Provider Active Dr. Thomas Ahumada MD Other Provider Active Dr. Miroslava Gonzalez MD Attending Provider Active Team Status: Active Member Role Status Meche Carlisle FARM MACHINERY ENGINE MECHANIC, FARM MACHINERY ENGINE MECHANIC-C Primary Care Provider Active Dr. Moise Austin MD Attending Provider Active Team Status: Active Member Role Status Meche Carlisle NP, FARM MACHINERY ENGINE MECHANIC-C Primary Care Provider Active Dr. Ellis Tsai MD Emergency Provider Active Dr. Rebecca Resendiz , DO Admit Provider, Other Provider Ac tive Dr. Serge Banks MD Other Provider Active Dr. Ajit Mcgill , Other Provider Active Dr. Martín Monique MD Other Provider Active Dr. Krzysztof Pennington MD Other Provider Active Viji Richey FARM MACHINERY ENGINE MECHANIC, FARM MACHINERY ENGINE MECHANIC-C Other Provider Active Dr. Hernando Padron MD Other Provider Active Dr. Thomas Ahumada MD Other Provider Active Dr. Pratima Jaime MD Other Provider Active Dr. Miroslava Gonzalez MD Attending Provider Active Team Status: Active Member Role Status Meche Carlisle FARM MACHINERY ENGINE MECHANIC, FARM MACHINERY ENGINE MECHANIC-C Primary Care Provider Active Dr. Ellis Tsai MD Emergency Provider Active Dr. Rebecca Resendiz , Admit Provider, Other Provider Ac tive Dr. Serge Banks MD Attending Provider, Other Provid er Active Dr. Ajit Mcgill , Other Provider Active Dr. Martín Monique MD Other Provider Active Dr. Krzysztof Pennington MD Other Provider Active Viji Richey FARM MACHINERY ENGINE MECHANIC, FARM MACHINERY ENGINE MECHANIC-C Other Provider Active Dr. Hernando Padron MD Other Provider Active Dr. Thomas Ahumada MD Other Provider Active Dr. Pratima Jaime MD Other Provider Active Team Status: Active Member Role Status Meche Carlisle FARM MACHINERY ENGINE MECHANIC, FARM MACHINERY ENGINE MECHANIC-C Primary Care Provider Active Dr. Ellis Tsai MD Emergency Provider Active Dr. Rebecca Resendiz , Admit Provider, Other Provider Ac tive Dr. Serge Banks MD Other Provider Active Dr. Ajit Mcgill , Other Provider Active Dr. Martín Monique MD Other Provider Active Dr. Krzysztof Pennington MD Other Provider Active Viji Richey NP, FARM MACHINERY ENGINE MECHANIC-C Other Provider Active Dr. Hernando Padron MD Other Provider Active Dr. Thomas Ahumada MD Other Provider Active Dr. Pratima Jaime MD Attending Provider, Other Provid er Active Team Status: Inactive Member Role Status Dates Barber Carlisle FARM MACHINERY ENGINE MECHANIC, FARM MACHINERY ENGINE MECHANIC-C Primary Care Provider Active Jonathan Gilma ELMORE MD Attending Provider Active Team Status: Inactive Member Role Status Meche Barber Carlisle FARM MACHINERY ENGINE MECHANIC, FARM MACHINERY ENGINE MECHANIC-C Primary Care Provider Active Dr. Ellis Tsai MD Emergency Provider Active Dr. Rebecca Resendiz , DO Admit Provider, Other Provider Ac tive Dr. Serge Banks MD Other Provider Active Dr. Ajit Mcgill , DO Other Provider Active Dr. Martín Monique MD Other Provider Active Dr. Krzysztof Pennington MD Other Provider Active Viji Richey FARM MACHINERY ENGINE MECHANIC, FARM MACHINERY ENGINE MECHANIC-C Other Provider Active Dr. Hernando Padron MD Other Provider Active Dr. Thomas Ahumada MD Other Provider Active Dr. Pratima Jaime MD Attending Provider Active Team Status: Active Member Role Status Meche Barber Carlisle FARM MACHINERY ENGINE MECHANIC, FARM MACHINERY ENGINE MECHANIC-C Primary Care Provider Active Dr. Moise Austin MD Attending Provider Active Dr. Rebecca Resendiz , Referring Provider Active Team Status: Active Member Role Status Meche Barber Carlisle FARM MACHINERY ENGINE MECHANIC, FARM MACHINERY ENGINE MECHANIC-C Primary Care Provider Active Dr. Ellis Tsai MD Emergency Provider Active Dr. Rebecca Resendiz , DO Admit Provider, Other Provider Ac tive Dr. Serge Banks MD Other Provider Active Dr. Ajit Mcgill , Other Provider Active Dr. Martín Monique MD Attending Provider, Other Pro vider Active Dr. Krzysztof Pennington MD Other Provider Active Viji Richey FARM MACHINERY ENGINE MECHANIC, FARM MACHINERY ENGINE MECHANIC-C Other Provider Active Dr. Hernando Padron MD Other Provider Active Dr. Thomas Ahumada MD Other Provider Active Dr. Pratima Jaime MD Referring Provider Active Team Status: Active Member Role Status Meche Barber Carlisle FARM MACHINERY ENGINE MECHANIC, FARM MACHINERY ENGINE MECHANIC-C Primary Care Provider Active Dr. Ellis Tsai MD Emergency Provider Active Dr. Rebecca Resendiz , DO Admit Provider, Other Provider Ac tive Dr. Serge Banks MD Attending Provider, Other Provid er Active Dr. Ajit Mcgill , DO Other Provider Active Dr. Martín Monique MD Other Provider Active Dr. Krzysztof Pennington MD Other Provider Active Viji Richey FARM MACHINERY ENGINE MECHANIC, FARM MACHINERY ENGINE MECHANIC-C Other Provider Active Dr. Hernando Padron MD Other Provider Active Dr. Thomas Ahumada MD Other Provider Active Dr. Pratima Jaime MD Referring Provider, Other Provid er Active Team Status: Inactive Member Role Status Dates Barber Carlisle FARM MACHINERY ENGINE MECHANIC, FARM MACHINERY ENGINE MECHANIC-C Primary Care Provider Active Dr. Delfin Jeffries MD Other Provider Active TORRIE COLLAZO Attending Provider, Referring Provider Active Team Status: Inactive Member Role Status Dates Barber Carlisle FARM MACHINERY ENGINE MECHANIC, FARM MACHINERY ENGINE MECHANIC-C Primary Care Provider, Referri ng Provider Active Dr. Sharmila Jackson MD Attending Provider Active Team Status: Inactive Member Role Status Dates Barber Carlisle FARM MACHINERY ENGINE MECHANIC, FARM MACHINERY ENGINE MECHANIC-C Primary Care Provider Active Dr. Sharmila Jackson MD Attending Provider, Referring Provider Active Team Status: Active Member Role Status Dates Jonathan ELMORE MD Primary Care Provider Active Team Status: Inactive Member Role Status Meche ELMORE MD Primary Care Provider Active Dr. Alejandra Vela DO Emergency Provider Active Team Status: Inactive Member Role Status Meche ELMORE MD Primary Care Provider Active Dr. Alejandra Vela DO Attending Provider, Emergency Provider Active Team Status: Inactive Member Role Status Dates Dr. Delfin Jeffries MD Attending Provider Active Jonathan ELMORE MD Primary Care Provider, Referring Provider Active Team Status: Inactive Member Role Status Dates Jonathan ELMORE MD Primary Care Provid er, Attending Provider, Referring Provider Active Team Status: Active Member Role Status Meche ELMORE MD Primary Care Provider, Attending Provider Active Team Status: Inactive Member Role Status Meche ELMORE MD Primary Care Provider Active Dr. Shahnaz Way DO Emergency Provider Active Team Status: Inactive Member Role Status Meche ELMORE MD Primary Care Provider Active Dr. Shahnaz Way DO Attending Provider, Emergency P andres Active Team Status: Inactive Member Role Status Meche ELMORE MD Primary Care Provider, Attending Provider Active Team Status: Active Member Role Status Dates Dr. Jonathan Dillard Sr. , DO Primary Care Provider Active Team Status: Inactive Member Role Status Dates Dr. Jonathan Dillard Sr. , Primary Care Provider Active Dr. Calvin Hester DO Emergency Provider Active Team Status: Inactive Member Role Status Dates Dr. Jonathan Dillard Sr. , DO Primary Care Provider Active Jonathan ELMORE MD Attending Provider Active Team Status: Inactive Member Role Status Dates Dr. Jonathan Dillard Sr. , DO Primary Care Provider Active Dr. Calvin Hester , DO Attending Provider, Emergency Pr ovider Active Team Status: Active Member Role Status Dates Dr. Jonathan Dillard Sr. , DO Primary Care Provider Active Jonathan ELMORE MD Attending Provider Active Team Status: Inactive Member Role Status Dates Dr. Jonathan Dillard Sr. , DO Primary Care Provider, Refer ring Provider Active Dr. Delfin Jeffries MD Attending Provider Active Team Status: Inactive Member Role Status Dates Dr. Jonathan Dillard Sr. , DO Primary Care Provider Active Dr. Alecia Navarrete MD Attending Provider Active Waitstaff Relationship Specialty Start Date End Date Barber Carlisle APRN-CNP [address] [place] [address] PCP - General 07/04/20 Team Status: Active Member Role Status Dates Dr. Jonathan Dillard Sr. , DO Primary Care Provider Active Dr. Calvin Hester , DO Emergency Provider Active Dr. Lucia Jurado MD Attending Provider Active Team Status: Active Member Role Status Dates Dr. Jonathan Dillard Sr. , DO Primary Care Provider Active Dr. Calvin Hester , DO Referring Provider, Emergency Pr ovider Active Dr. Susy Delarosa MD Attending Provider Active Team Status: Inactive Member Role Status Dates Dr. Sharmila Jackson MD Attending Provider, Referring Provider Active Dr. Jonathan Dillard Sr. , DO Primary Care Provider Active Waitstaff Relationship Specialty Start Date End Date Barber Carlisle APRN-CNP PCP - General 07/04/20 Waitstaff Relationship Specialty Start Date End Date Barber Carlisle APRN-CNP [address] [place] [address] PCP - General Family Medicine 10/27/23 Waitstaff Relationship Specialty Start Date End Date Barber Carlisle APRN-CNP [address] [place] [address] PCP - General Family Medicine 10/27/23 Waitstaff Relationship Specialty Start Date End Date Orestes Barber DEYSI Morales-SILVINO [address] [place] [address] PCP - General Family Medicine 10/27/23 Reason for Visit (unrecogniz ed section and content) Specialty Diagnoses / Procedures Referred By Contac t Referred To Contact Diagnoses Colovaginal fistula Intestinal Abscess Procedures [place] [address] [facility] [place] [address] [facility] [address] [address] [place] [address] Referral ID Status Reason Start Date Expiration Date Visits Re quested Visits Authorized [id number] 1 1 Specialty Diagnoses / Procedures Referred By Contac t Referred To Contact Diagnoses Encounter for preadmission testing Procedures [place] [address] [place] [address] Referral ID Status Reason Start Date Expiration Date V isits Requested Visits Authorized [id number] Pending Review 10/28/2023 10/27/2024 1 1 Scheduled Active and Recently Administ ered Medications (unrecognized section and content) Medication Order 09/26/2023 09/27/2023 09/28/2023 amoxicillin-pot clavulanate (Augmentin) 875-125 mg per tablet 875 mg 875 mg, oral, Every 12 hours scheduled, First dose on Tue09/28/23 at 0900, Suspected Indication (Select all that apply): Urinary Tract Infection, Type of Therapy: Empiric, Type of Urinary Tract Infection: Complicated 0847 (Given - Provider: Aldo Blood RN)2100 (Due) cefTRIAXone (Rocephin) IVPB 1 g (CANCELED) 1 g, intravenous, at 100 mL/hr, Administer over 30 Minutes, Every 24 hours, First dose on Tue09/25/23 at 1345, premix bag, Suspected Indication (Select all that apply): Gynecological/Pelvic, Type of Therapy: Empiric, Type of infection: Abscess Present 1402 (New Bag - Provider: Amberly Lombardi RN)1432 (Stopped - Provider: Amberly Lombardi RN) 1330 (New Bag - Provider: Aldo Blood RN)1400 (Stopped - Provider: Aldo Blood RN) enoxaparin (Lovenox) syringe 40 mg 40 mg, subcutaneous, Every 24 hours, First dose on Yesenia 09/15/23 at 2000, Indications: venous thrombosis 2012 (Given - Provider: Rhonda Gordon RN) 1999 (Not Given - Provider: Aldo Blood RN - Reason: Patient/family refused) 1999 (Due) iohexol (OMNIPaque) 350 mg iodine/mL solution 90 mL (COMPLETED) 90 mL, intravenous, Once in imaging, Starting on Tue09/26/23 at 1339, For 1 dose 1339 (Given - Provider: Radha Almanzar, RT) metoprolol succinate XL (Toprol-XL) 24 hr tablet 100 mg 100 mg, oral, Daily, First dose on Tue09/27/23 at 0900, Do not crush or chew. 0815 (Given - Provider: Aldo Blood RN) 0847 (Given - Provider: Aldo Blood RN) metoprolol tartrate (Lopressor) injection 5 mg (COMPLETED) 5 mg, intravenous, Once, On Tue09/26/23 at 0915, For 1 dose, FOR CORONARY CTA PROCEDURE USE ONLY First dose after oral metoprolol if heart rate remains greater than 60 bpm and systolic blood pressure greater than 100 mmHg. Total IV dose not to exceed 25 mg. Do not administer if: heart rate is less than 55 and systolic blood pressure is less than 90 mmHg or allergy to beta doris. 0915 (Not Given - Provider: Aldo Blood RN - Reason: Other)1315 (Given - Provider: Ashley Orourke RN - Comment: per protocol) metoprolol tartrate (Lopressor) tablet 100 mg (COMPLETED) 100 mg, oral, Once, On 09/26/23 at 0915, For 1 dose, FOR CORONARY CTA PROCEDURE USE ONLY First Dose in CDU/Floor. Vital Signs every 1 hour. Until after 30 minutes when scan completed. Do Not Administer if: heart rate is less than 55 and systolic blood pressure is less than 90 mmHg or allergic to beta doris. 1003 (Given - Provider: Amberly Lombardi RN) metoprolol tartrate (Lopressor) tablet 50 mg (CANCELED) 50 mg, oral, Every 8 hours, First dose on 09/24/23 at 0715, Hold dose if systolic bp less than 90mmhg or heart rate less than 50/mt 0503 (Given - Provider: Muna Lindo RN)1515 (Not Given - Provider: Amberly Lombardi RN - Reason: Other - Comment: order discontinued) metroNIDAZOLE in NaCl (iso-os) (Flagyl) IV 500 mg 500 mg, intravenous, Administer over 60 Minutes, Every 8 hours, First dose on Yesenia 09/15/23 at 2045, Do NOT give with alcohol or drug products with significant alcohol content., Suspected Indication (Select all that apply): Abdominal Infection, Type of Therapy: Empiric, Type of infection: Abscess Present 0503 (New Bag - Provider: Muna Lindo RN)0603 (Stopped - Provider: Muna Lindo RN)1441 (New Bag - Provider: Amberly Lombardi RN)1541 (Stopped - Provider: Amberly Lombardi RN)2209 (New Bag - Provider: Rhonda Gordon RN)2309 (Stopped - Provider: Rhonda Gordon RN) 0816 (New Bag - Provider: Aldo Blood RN)0916 (Stopped - Provider: Aldo Blood RN)1445 (Not Given - Provider: Aldo Blood RN - Reason: Loss of IV access)2245 (Not Given - Provider: Aldo Blood RN - Reason: Loss of IV access) 0900 (Not Given - Provider: Aldo Blood RN - Reason: Loss of IV access)1445 (Due - Provider: Karen Fink, PharmD)2245 (Due - Provider: Karen Fink, PatD) nitrofurantoin (macrocrystal-monohydrate) (Macrobid) capsule 100 mg (COMPLETED) 100 mg, oral, Every 12 hours scheduled, First dose (after last modification) on Tue09/23/23 at 2100, For 5 days, Suspected Indication (Select all that apply): Urinary Tract Infection, Type of Therapy: Definitive, Based on Culture, Type of Urinary Tract Infection: Complicated 1002 (Given - Provider: Amberly Lombardi RN - Comment: workflow)2013 (Given - Provider: Rhonda Gordon RN) 0815 (Given - Provider: Aldo Blood RN)2126 (Given - Provider: Aldo Blood RN) 0848 (Given - Provider: Aldo Blood RN) nitroglycerin (Nitrostat) SL tablet 0.8 mg (COMPLETED) 0.8 mg, sublingual, Once, On Tue09/26/23 at 0915, For 1 dose, FOR CORONARY CTA PROCEDURE USE ONLY To be given upon arrival to Cardiac CT scan. Do Not Administer if heart rate is less than 55 and systolic blood pressure is less than 90 mmHg, if recent (48 hours) use of Phosphodiesterse-5 inhibitors for erectile dysfunction-Avanafil (Stendra), Sildenafil (Viagra, Revatio), Tadafil (Adcirca, Cialis), or Vardenafil (Levitra, Staxyn), hypersensitivity to organic nitrates, symptomatic hypotension. 0915 (Not Given - Provider: Aldo Blood RN - Reason: See Provider Order)1324 (Given - Provider: Ashley Orourke RN - Comment: per protocol) pantoprazole (ProtoNix) EC tablet 40 mg 40 mg, oral, Daily, First dose on Tue09/23/23 at 0900, Do not crush, chew, or split. 1003 (Given - Provider: Amberly Lombardi RN - Comment: workflow) 0816 (Given - Provider: Aldo Blood RN) 0847 (Given - Provider: Aldo Blood RN) sacubitriL-valsartan (Entresto) 24-26 mg per tablet 0.5 tablet 0.5 tablet, oral, 2 times daily, First dose on Tue09/26/23 at 2100, Contraindicated in combination with DARIUSZ inhibitors. Ensure a minimum of 36 hours between any DARIUSZ inhibitor dose and sacubitril-valsartan. 2013 (Given - Provider: Rhonda Gordon RN) 0815 (Given - Provider: Aldo Blood, SHAMA)2126 (Given - Provider: Aldo Blood, SHAMA) 0848 (Given - Provider: Aldo Blood RN)2100 (Due) PRN Medication Order 09/26/2023 09/27/2023 09/28/2023 acetaminophen (Tylenol) tablet 650 mg 650 mg, oral, Every 4 hours PRN, pain mild (1-3), first line, Starting on Tue09/18/23 at 2019, If ordered PRN for pain, nurse is permitted to administer this medication for higher pain scores based on patient preference? Yes 0830 (Not Given - Provider: Aldo Blood RN - Reason: Patient/family refused) dextrose 10 % in water (D10W) infusion 0.3 g/kg/hr 74.8 kg (224.4 mL/hr), intravenous, Once as needed, For blood glucose less than 70 mg/dL after 30 minutes of intervention. Discontinue once blood glucose reaches 100 mg/dL., Starting on Tue09/16/23 at 0017, For 1 dose, Discontinue once blood glucose reaches 100 mg/dL. dextrose 50 % injection 25 g 25 g, intravenous, Every 15 min PRN, For blood glucose less than or equal to 40 mg/dL, Starting on Tue09/16/23 at 0017, May repeat until blood glucose level reaches 100 mg/dL or greater. Push 2 - 3 mL/minute if patient has secure IV access. glucagon (Glucagen) injection 1 mg 1 mg, intramuscular, Every 15 min PRN, low blood sugar - see comments, For blood glucose less than or equal to 70 mg/dL and no IV access, Starting on Tue09/16/23 at 0017, Give until blood glucose is 100 mg/dL or greater. If patient DOES NOT HAVE secure IV access & patient is unconscious, NPO or is unable to eat or drink. LORazepam (Ativan) injection 0.5 mg 0.5 mg, intravenous, Administer over 5 Minutes, Every 5 min PRN, anxiety, Starting on Tue09/26/23 at 0905, For 4 doses, FOR CORONARY CTA PROCEDURE USE ONLY Contact ordering provider if patient anxious after 2 doses. Hold for altered mental status and or respiratory depression and contact ordering provider. Patient needs to follow instructions to be able to inhale and exhale on command for the exam, do not over sedate. metoprolol tartrate (Lopressor) injection 5 mg (COMPLETED) 5 mg, intravenous, Once as needed, See admin instructions - Second dose 5 minutes after first dose of IV Metoprolol prior to Cardiac CT Scan if heart rate remains greater than 60 bpm and systolic blood pressure greater than 100 mmHg., Starting on Tue09/26/23 at 0910, For 1 dose, FOR CORONARY CTA PROCEDURE USE ONLY Second dose 5 minutes after first dose of IV Metoprolol prior to Cardiac CT Scan if heart rate remains greater than 60 bpm and systolic blood pressure greater than 100 mmHg. Total IV dose not to exceed 25 mg. Do not administer if heart rate is less than 55 and systolic blood pressure less than 90 mmHg or allergy to beta doris. 1315 (Given - Provider: Ashley Orourke RN) metoprolol tartrate (Lopressor) injection 5 mg (COMPLETED) 5 mg, intravenous, Once as needed, See admin instructions - Third dose 5 minutes after second dose of IV Metoprolol prior to Cardiac CT Scan if heart rate remains greater than 60 bpm and systolic blood pressure greater than 100 mmHg., Starting on Tue09/26/23 at 0915, For 1 dose, FOR CORONARY CTA PROCEDURE USE ONLY Third dose 5 minutes after second dose of IV Metoprolol prior to Cardiac CT Scan if heart rate remains greater than 60 bpm and systolic blood pressure greater than 100 mmHg. Total IV dose not to exceed 25 mg. Do not administer if heart rate is less than 55 and systolic blood pressure less than 90 mmHg or allergy to beta doris. 1323 (Given - Provider: Ashley Orourke RN) metoprolol tartrate (Lopressor) injection 5 mg (COMPLETED) 5 mg, intravenous, Once as needed, See admin instructions - Fourth dose 5 minutes after third dose of IV Metoprolol prior to Cardiac CT Scan if heart rate remains greater than 60 bpm and systolic blood pressure greater than 100 mmHg., Starting on Tue09/26/23 at 0920, For 1 dose, FOR CORONARY CTA PROCEDURE USE ONLY Fourth dose 5 minutes after third dose of IV Metoprolol prior to Cardiac CT Scan if heart rate remains greater than 60 bpm and systolic blood pressure greater than 100 mmHg. Total IV dose not to exceed 25 mg. Do not administer if heart rate is less than 55 and systolic blood pressure less than 90 mmHg or allergy to beta doris. 1323 (Given - Provider: Ashley Orourke RN) metoprolol tartrate (Lopressor) injection 5 mg 5 mg, intravenous, Once as needed, See admin instructions - Fifth dose 5 minutes after fourth dose of IV Metoprolol prior to Cardiac CT Scan if heart rate remains greater than 60 bpm and systolic blood pressure greater than 100 mmHg., Starting on Tue09/26/23 at 0925, For 1 dose, FOR CORONARY CTA PROCEDURE USE ONLY Fifth dose 5 minutes after fourth dose of IV Metoprolol prior to Cardiac CT Scan if heart rate remains greater than 60 bpm and systolic blood pressure greater than 100 mmHg. Total IV dose not to exceed 25 mg. Do not administer if heart rate is less than 55 and systolic blood pressure less than 90 mmHg or allergy to beta doris. metoprolol tartrate (Lopressor) tablet 100 mg (COMPLETED) 100 mg, oral, Once as needed, See admin instructions - To be given 1 hour after first dose if heart rate greater than 60 bpm and systolic blood pressure greater than 100 mmHg., Starting on Tue09/26/23 at 0905, For 1 dose, FOR CORONARY CTA PROCEDURE USE ONLY Second dose in CDU/Floor. To be given 1 hour after first dose if heart rate greater than 60 bpm and systolic blood pressure greater than 100 mmHg. Vital Signs every 1 hour. Until after 30 minutes when scan completed. Do Not Administer if: Heart rate is less than 55 and systolic blood pressure less than 90 mmHg or allergic to beta doris. 1112 (Given - Provider: Amberly Lombardi RN) ondansetron (Zofran) injection 4 mg(Linked Group 1) 4 mg, intravenous, Every 8 hours PRN, nausea/vomiting, first line, Starting on [place] 09/15/23 at 1946, 1st Line. Give IV if patient is unable to take orally. If inadequate response within 60 minutes, proceed to next-line agent for same PRN reason or contact provider if no further options ordered. When administering via IV Push, administer over 3-5 minutes. oxyCODONE (Roxicodone) immediate release tablet 10 mg 10 mg, oral, Every 4 hours PRN, pain severe (7-10), first line, Starting on 09/18/23 at 2020, If ordered PRN for pain, nurse is permitted to administer this medication for higher pain scores based on patient preference? Yes 0033 (Given - Provider: Muna Lindo RN)0503 (Given - Provider: Muna Lindo RN) 1652 (Given - Provider: Aldo Blood, SHAMA)2126 (Given - Provider: Aldo Blood, SHAMA) 0847 (Given - Provider: Aldo Blood RN) oxyCODONE (Roxicodone) immediate release tablet 5 mg 5 mg, oral, Every 4 hours PRN, pain moderate (4-6), first line, Starting on 09/18/23 at 2020, If ordered PRN for pain, nurse is permitted to administer this medication for higher pain scores based on patient preference? Yes sennosides-docusate sodium (Zarina-Colace) 8.6-50 mg per tablet 1 tablet 1 tablet, oral, Daily PRN, constipation, first line, Starting on Tue09/23/23 at 0744 simethicone (Mylicon) chewable tablet 80 mg 80 mg, oral, Every 6 hours PRN, flatulence, Starting on Tue09/23/23 at 0744 Linked Groups Order Group 1: ondansetron (Zofran) tablet 4 mg (CANCELED) 4 mg, oral, Every 8 hours PRN, nausea/vomiting, first line, Starting on [place] 09/15/23 at 1946, Phase II/On Unit
1st Line. Use oral route first, if possible. If inadequate response within 60 minutes, proceed to next-line agent for same PRN reason or contact provider if no further options ordered.
Or ondansetron (Zofran) injection 4 mgJump to med 4 mg, intravenous, Every 8 hours PRN, nausea/vomiting, first line, Starting on [place] 09/15/23 at 1946
1st Line. Give IV if patient is unable to take orally. If inadequate response within 60 minutes, proceed to next-line agent for same PRN reason or contact provider if no further options ordered. When administering via IV Push, administer over 3-5 minutes.
FOR RECORDS PERTAINING TO PATIENTS WHO ARE OR HAVE BEEN ENROLLED IN A CHEMICAL DEPENDENCY/SUBSTANCEABUSE PROGRAM, SOME INFORMATION MAY BE OMITTED. This clinical summary was aggregated from multiple sources. Caution should be exercised in using it in the provision of clinical care. This summary normalizes information from multiple sources, and as a consequence, information in this document may materially change the coding, format and clinical context of patient data. In addition, data may be omitted in some cases. CLINICAL DECISIONS SHOULD BE BASED ON THE PRIMARY CLINICAL RECORDS. [employer] provides no warranty or guarantee of the accuracy or completeness of information in this document.
[2025-09-09 09:05] LABS: Hematocrit 24.4 % (37-47); Hemoglobin 7.0 g/dL (12.0-15.0)
== END ==
LOC: OLS.ACH 04:00
PROVIDERS: PCP Internal Medicine; Referring Provider Internal Medicine; Visit Provider Internal Medicine
DX: D37.4 Neoplasm of uncertain behavior of colon (principal); K57.31 Diverticulosis of large intestine without perforation or abscess with bleeding
CPT/HCPCS: 36415; 85014; 85018

== ENCOUNTER 2025-09-10 18:33 | Emergency (ER) | payer MEDICARE, MEDICAID, SELFPAY ==
[2025-09-10 18:33] VITALS: BP 119/43; PULSE 82; RESP 16; TEMP 36.7; O2SAT 97
--- NOTE | 2025-09-10 18:59 | EX.ED.DYSGE1 ---
HPI History of Present Illness Chief Complaint: GI Bleed Detail of Chief Complaint: Blood from rectum and anemia Informant: patient, EMS and SNF Onset/Context/Timing Onset: Weeks (Patient states she is noted blood for 1 week) Context: Sudden Onset Timing: Intermittent Quality: Dark red blood with bowel movement Location: Rectum/anus Current Severity: Gone Maximum Severity: Moderate Worsened by: Not applicable Relieved by: Not applicable Associated Symptoms Associated Symptoms: Patient denies orthostatic symptoms or dyspnea, [place] exertion, chest bigg Narrative Narrative: Patient is 74-year-old woman. She has a history of colitis, iron deficiency anemia, thrombocytopenia, congestive heart failure and COPD. She was brought to the ER because of blood per rectum. Her hemoglobin yesterday was 7. Hematocrit was 24.4. On September 04 her H&H was 7.2 and 24.7. Prior was September 2023 and her H&H at that time was 8.2 and 29.3 with macrocytic indices patient is on iron and states her stool is dark because of this. She denies dysuria, frequency, urgency or hematuria. She denies bruising easily. She is not on an anticoagulant or antithrombotic. Prior similar symptoms: Yes Recent Illness/Hospitalization: No PFSH PFS Medical History Colitis On mechanically assisted ventilation Lung nodules Pneumonia Acute on chronic respiratory failure with hypoxia and hypercapnia Respiratory failure with hypoxia Vitamin B12 deficiency Thrombocytopenia Iron deficiency anemia Other lack of coordination Muscle weakness (generalized) Other pancytopenia Other displaced fracture of sixth cervical vertebra, subsequent encounter for fracture with routine healing Insomnia, unspecified History of falling Personal history of nicotine dependence Personal history of malignant neoplasm of breast Other displaced fracture of seventh cervical vertebra, subsequent encounter for fracture with routine healing Urinary incontinence Dysphagia Primary osteoarthritis, left shoulder Primary osteoarthritis, right shoulder GERD (gastroesophageal reflux disease) Chronic respiratory failure with hypoxia COPD (chronic obstructive pulmonary disease) Venous insufficiency (chronic) (peripheral) Venous insufficiency 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 Myocardial infarction Atherosclerotic heart disease Essential hypertension Obstructive sleep apnea Pure hypercholesterolemia Type 2 diabetes mellitus with diabetic neuropathy Anemia Unspecified abnormalities of gait and mobility Home Medications ?Medication ?Instructions ?Recorded ?Last Taken ?Type nystatin 100,000 unit/gram topical 1 applic topical BID Check with 11/24/21 Unknown History cream primary doctor simvastatin 10 mg tablet 10 mg PO QHS CHOLESTEROL 11/24/21 Unknown History bisacodyl 10 mg rectal suppository 10 mg AR DAILY PRN constipation 11/11/22 Unknown History cranberry fruit 400 mg capsule 400 mg PO DAILY SUPPLEMENT 11/11/22 Unknown History folic acid 1 mg tablet 1 mg PO DAILY SUPPLEMENT 11/11/22 Unknown History acetaminophen 325 mg tablet 650 mg PO QHS PAIN 04/19/23 Unknown History carvedilol 3.125 mg tablet 3.125 mg PO BID HEART 04/19/23 Unknown History gabapentin 100 mg capsule 100 mg PO TID NERVE PAIN 04/19/23 Unknown History lisinopril 2.5 mg tablet 2.5 mg PO DAILY BLOOD PRESSURE 04/19/23 Unknown History potassium chloride 20 mEq 20 meq PO DAILY SUPPLEMENT 04/19/23 Unknown History tablet,extended release(part/cryst) ferrous sulfate 325 mg (65 mg 325 mg PO BID 05/04/23 Unknown History iron) tablet ondansetron HCl 4 mg tablet 4 mg PO Q8H PRN nausea and vomiting 05/04/23 Unknown History pantoprazole 40 mg tablet,delayed 40 mg PO DAILY 05/04/23 Unknown History release sennosides 8.6 mg-docusate sodium 1 tab-cap PO BID PRN constipation 05/04/23 Unknown History 50 mg capsule (Senna Plus) simethicone 80 mg chewable tablet 80 mg PO DAILY abdominal distention 05/04/23 Unknown History (Gas Relief (simethicone)) hydrocodone-acetaminophen 5-325mg 1 tab PO Q6H PRN PRN Pain 3 days 07/14/23 Unknown Rx 5mg-325mg #12 TABLETS cyanocobalamin (vitamin B-12) 500 500 mcg PO QHS 08/09/23 Unknown History mcg tablet (B-12 DOTS) dicyclomine 20 mg tablet 20 mg PO BID abdominal pain 08/09/23 Unknown History magnesium hydroxide 400 mg/5 mL 30 ml PO DAILY PRN constipation 08/09/23 Unknown History oral suspension calcium carbonate (Calcium 500) 500 mg PO BID 09/14/23 Unknown History conjugated estrogens 0.625 mg/gram 1 applic vaginal QHS 09/14/23 Unknown History vaginal cream (Premarin) furosemide 20 mg tablet 20 mg PO DAILY 09/14/23 Unknown History glimepiride 1 mg tablet 1 mg PO DAILY 09/14/23 Unknown History nitrofurantoin 100 mg PO BID 09/14/23 Unknown History monohydrate/macrocrystals 100 mg capsule phenazopyridine 100 mg tablet 100 mg PO Q8H PRN dysuria 09/14/23 Unknown History (Pyridium) Allergy/AdvReac Type Severity Reaction Status Date / Time cyclobenzaprine (From Allergy Other Verified 09/10/25 18:36 Flexeril) tizanidine (From Zanaflex) Allergy Other Verified 09/10/25 18:36 Family History Sister Breast cancer Grandmother Diabetes Surgical History History of lumpectomy of left breast Hx of cholecystectomy Hx of cervical spine surgery Social History housing: long term Smoking Status: Former smoker alcohol intake: never substance use type: does not use ROS ROS ED Constitutional Constitutional ED: Denies chills, fever(s), subjective or sweats Eyes Eyes: Denies blurry vision or change in vision ENT ENT ED: Denies rhinorrhea or sore throat Cardiovascular Cardiovascular: Denies chest pain, orthopnea or palpitations Respiratory/Chest Respiratory/Chest: Denies cough, dyspnea, dyspnea on exertion or orthopnea Gastrointestinal Gastrointestinal: Reports other Details: Detailed HPI narrative ; Denies abdominal pain, diarrhea, melena, nausea or vomiting Genitourinary Genitourinary ED: Reports dysuria and other; Denies hematuria or urinary frequency Musculoskeletal Musculoskeletal: Denies arthralgias or myalgias Integumentary Denies rash Neurologic Neurologic: Denies weakness Psychiatric Psychiatric: Denies anxiety Endocrine Endocrinology: Denies cold intolerance or heat intolerance Hematologic/Lymphatic Hematologic/Lymphatic: Reports systems reviewed and no addt'l complaints, except as documented EXAM Physical Exam Const Vital Signs: 09/10/25 18:33 09/10/25 19:33 Temperature 98.0 F Temperature Source Oral Pulse Rate 82 75 Respiratory Rate 16 19 H Blood Pressure 119/43 L 107/47 L Blood Pressure Mean 68 67 Pulse Ox 97 97 Oxygen Delivery Method Nasal Cannula Room Air Oxygen Flow Rate (L/min) 2 Positive well nourished and well developed Constitutional Narrative: Patient appears pale. Vital signs are normal. General Appearance ED: well developed, NAD and pallor HEENT HEENT Narrative: Head is atraumatic and normocephalic. Ears are normal. Nares are patent. Posterior pharynx is normal Eyes PERRL and EOMs intact bilaterally General Eye ED: Yes pale conjunctiva; Negative for scleral icterus Neck no lymphadenopathy, supple and no JVD Resp normal respiratory effort and clear to auscultation bilaterally Cardio regular rate, regular rhythm, S1 normal heart sound, S2 normal heart sound and no murmurs GI normal to inspection, nondistended, normoactive bowel sounds, non-tender, non-distended, hepatosplenomegaly and no masses GI Narrative: Patient has evidence of prior hemorrhoids. Rectal exam was nontender. There is no palpable masses. Stool is a dark green. Anoscopy was performed. Patient does have external hemorrhoids. There is no active bleeding noted. Extremity normal to inspection General Extremety ED: Negative for edema or tenderness General Extremity: Negative for edema Neuro oriented x3 and CN's II-XII intact bilaterally Sensorium / Orientation: alert Psych mental status grossly normal Skin no rashes or lesions noted, no wounds and No skin turgor normal General Skin Exam: pallor; Negative for jaundice MDM MDM MDM Narrative Medical decision making narrative: Patient with asymptomatic anemia. Will type and screen her since her H&H is 7 and 24.4. She will need her iron dose increased. Will obtain a BMP to assess BUN to creatinine ratio. If this is elevated this may suggest recent bleed. Her stool is not black or maroon. Suspect the blood that she saw was due to hemorrhoids. History & Record Review Additional record(s) reviewed:: Prior outpatient record (She is followed by hematology, Dr. Delfin Alvarez for iron deficiency anemia.) and Prior labs Lab Data Attestation: I reviewed the patient's lab results. Lab results narrative: H&H is 7.9 and 26.5 which is an improvement from yesterday. Indices are unremarkable. Electrolyte panel reveals an elevated CO2 of 34.5. Anion gap is normal. BUN to creatinine ratio is less than 20-1. This would indicate patient does not have an acute GI bleed. Suspect her blood loss is due to hemorrhoids. And since her hemoglobin is 7.9 and she has no symptoms she will not require emergent transfusion. This can be treated as an outpatient. Labs: Laboratory Results - last 24 hr 09/10/25 18:37 WBC 5.1 RBC 2.84 L Hgb 7.9 L Hct 26.5 L MCV 93.3 MCH 27.8 MCHC 29.8 L RDW Std Deviation 48.1 H RDW Coeff of Amanda 14.3 Plt Count 111 L MPV 10.7 Sodium 145 Potassium 4.3 Chloride 101 Carbon Dioxide 34.5 H Anion Gap 9 BUN 13 Creatinine 0.82 Estim Creat Clear Calc 62.66 Est GFR (MDRD) Non-Af 74 BUN/Creatinine Ratio 15.9 Glucose 182 H Calcium 8.5 Procedures Other Procedures Procedure(s): Endoscopy. Documentation MDM/plan portion of the EMR Discharge Plan Triage Chief Complaint: GI Bleed ED Provider: Royce Vigil Dx/Rx/DC Orders Clinical Impression: Bleeding external hemorrhoids, Signs and symptoms of anemia, Thrombocytopenia, Anemia, Fecal occult blood test positive Instructions: ED Hemorrhoids Prescriptions: No Action bisacodyl 10 mg suppository 10 mg AR DAILY PRN (Reason: constipation) cranberry fruit 400 mg capsule 400 mg PO DAILY folic acid 1 mg tablet 1 mg PO DAILY ferrous sulfate 325 mg (65 mg iron) tablet 325 mg PO BID ondansetron HCl 4 mg tablet 4 mg PO Q8H PRN (Reason: nausea and vomiting) pantoprazole 40 mg tablet,delayed release (DR/EC) 40 mg PO DAILY Senna Plus 8.6-50 mg capsule 1 tab-cap PO BID PRN (Reason: constipation) simethicone [Gas Relief (simethicone)] 80 mg tablet,chewable 80 mg PO DAILY nystatin 100,000 unit/gram cream 1 applic TOPICAL BID simvastatin 10 mg tablet 10 mg PO QHS acetaminophen 325 mg Tablet 650 mg PO QHS potassium chloride 20 mEq tablet,ER particles/crystals 20 meq PO DAILY gabapentin 100 mg capsule 100 mg PO TID carvedilol 3.125 mg tablet 3.125 mg PO BID lisinopril 2.5 mg tablet 2.5 mg PO DAILY hydrocodone-acetaminophen 5-325 mg tablet 1 tab PO Q6H PRN PRN (Reason: Pain) 3 Days Qty: 12 0RF glimepiride 1 mg tablet 1 mg PO DAILY furosemide 20 mg tablet 20 mg PO DAILY nitrofurantoin monohyd/m-cryst 100 mg capsule 100 mg PO BID Patient Comments: stop 09/19/23 calcium carbonate [Calcium 500] 500 mg calcium (1,250 mg) tablet,chewable 500 mg PO BID phenazopyridine [Pyridium] 100 mg tablet 100 mg PO Q8H PRN (Reason: dysuria ) Premarin 0.625 mg/gram cream 1 applic vaginal QHS dicyclomine 20 mg tablet 20 mg PO BID magnesium hydroxide 400 mg/5 mL suspension 30 ml PO DAILY PRN (Reason: constipation) cyanocobalamin (vitamin B-12) [B-12 DOTS] 500 mcg tablet 500 mcg PO QHS Primary Care Provider: Jonathan Dillard Sr. Referrals: Jonathan Dillard Sr., DO [Primary Care Provider, [facility]] - 1 Week Activity Restrictions/Additional Instructions: Increase iron from 1 tablet twice a day to 1 tablet 3 times a day for the next 30 days. Have hemogram checked in 1 week. Print Language: Polish Disposition Disposition: Home, Self Care
[2025-09-10 19:15] LABS: Hematocrit 26.5 % (37-47); Hemoglobin 7.9 g/dL (12.0-15.0); Mean Corp Hgb Conc 29.8 g/dL (32-36); Mean Corpuscular Volume 93.3 fL (81-99); Mean Platelet Vol. 10.7 fl (6.2-12.0); Platelet Count 111 K/mm3 (150-450); RBC Distribution Width CV 14.3 % (11.6-14.6); RBC Distribution Width SD 48.1 fl (35.1-43.9); Red Blood Count 2.84 M/mm3 (4.2-5.4); White Blood Count 5.1 K/mm3 (4.4-11.0)
[2025-09-10 19:33] VITALS: BP 107/47; PULSE 75; RESP 19; O2SAT 97
--- NOTE | 2025-09-10 19:41 | ED.RN ---
This RN bedside for rectal exam performed by Dr. Vigil.
[2025-09-10 19:42] LABS: Anion Gap 9 (5-15); BUN 13 mg/dL (4-19); BUN/Creat Ratio 15.9 RATIO (10-20); Calcium,Total 8.5 mg/dL (7.6-11.0); Carbon Dioxide 34.5 mmol/L (21.0-32.0); Chloride 101 mmol/L (98-108); Estimated Creatinine Clearance 62.66 ml/min (50-250); Glucose 182 mg/dL (70-99); Potassium 4.3 mmol/L (3.3-5.1)
[2025-09-10 20:00] VITALS: BP 104/66; PULSE 72; RESP 18; O2SAT 97
[2025-09-10 20:37] VITALS: BP 104/66; PULSE 72; RESP 18; TEMP 36.7; O2SAT 97
== END 2025-09-10 21:00 | disposition home or self-care (01) ==
PROVIDERS: Emergency Provider Emergency Medicine; PCP Internal Medicine; Visit Provider Emergency Medicine
DX: K64.4 Residual hemorrhoidal skin tags (principal); I11.0 Hypertensive heart disease with heart failure; I50.9 Heart failure, unspecified; J44.9 Chronic obstructive pulmonary disease, unspecified; E11.9 Type 2 diabetes mellitus without complications; Z87.891 Personal history of nicotine dependence; I25.10 Atherosclerotic heart disease of native coronary artery without angina pectoris; E78.00 Pure hypercholesterolemia, unspecified; I25.2 Old myocardial infarction; Z79.899 Other long term (current) drug therapy; Z79.84 Long term (current) use of oral hypoglycemic drugs; K21.9 Gastro-esophageal reflux disease without esophagitis; Z90.49 Acquired absence of other specified parts of digestive tract; D64.9 Anemia, unspecified; D69.6 Thrombocytopenia, unspecified
CPT/HCPCS: 46600; 80048; 82274; 85027; 86850; 86900; 86901; 99284; A4216

== ENCOUNTER → 2025-09-11 05:00 | Outpatient (REF) | payer MEDICARE, MEDICAID, SELFPAY ==
[2025-09-11 08:50] LABS: Hematocrit 28.5 % (37-47); Hemoglobin 8.4 g/dL (12.0-15.0)
== END ==
LOC: OLS.ACH 05:00
PROVIDERS: PCP Internal Medicine; Visit Provider Internal Medicine
DX: D50.9 Iron deficiency anemia, unspecified (principal)
CPT/HCPCS: 36415; 85014; 85018

== ENCOUNTER → 2025-09-18 05:00 | Outpatient (REF) | payer MEDICARE, MEDICAID, SELFPAY ==
--- OUTSIDE RECORDS SUMMARY | 2025-09-18 04:46 | XMS RPT_ITS | CCD ---
Author Organization [facility] [employer] [facility] Care Team Providers Care Quantitative Analyst Marketing Name Role Phone Ellis Martines Unavailable Unavailable PROVIDER, UNKNOWN Unavailable Unavailable Michelle Aguilar Unavailable Unavailab Kandi Zacarias Unavailable Unavailable Barber Carlisle Unavailable Unavailable Pranav Bonds Unavailable Unavailable Update Needed Unavailable Unavailable ORESTES BICYCLE SERVICE TECHNICIAN-AERONAUTICS COMMISSION DIRECTORBARBER Primary Care Physician ORESTES BICYCLE SERVICE TECHNICIAN-AERONAUTICS COMMISSION DIRECTOR, BARBER Primary Care Physician ORESTES BICYCLE SERVICE TECHNICIAN-AERONAUTICS COMMISSION DIRECTOR, BARBER Primary Care Physician Orestes BELLOWS CHARGER ASSEMBLER, BELLOWS CHARGER ASSEMBLER-C Barber Primary Care Provider [phone] Orestes BELLOWS CHARGER ASSEMBLER, BELLOWS CHARGER ASSEMBLER-C Barber Referring Provider 1([facility] )[phone] Dr. Delfin Jeffries Attending Provider Orestes BELLOWS CHARGER ASSEMBLER, BELLOWS CHARGER ASSEMBLER-C Barber Primary Care Provider [phone] Orestes BELLOWS CHARGER ASSEMBLER, BELLOWS CHARGER ASSEMBLER-C Barber Referring Provider [phone]([facility] )[phone] Dr. Delfin Jeffries Attending Provider Dr. Ellis Tsai Emergency Provider [phone] Dr. Rebecca Resendiz Admit Provider Dr. Rebecca Resendiz Attending Provider [phone] Dr. Rebecca Resendiz Other Provider Dr. Serge Banks Other Provider Dr. Ajit Mcgill Other Provider Dr. Martín Monique Other Provider [phone]([facility])[phone] Krzysztof Pennington Other Provider Unavailab rambo Richey BELLOWS CHARGER ASSEMBLER, BELLOWS CHARGER ASSEMBLER-C Viji Other Provider Dr. Miroslava Gonzalez Attending Provider Dr. Martín Monique Attending Provider Dr. Hernando Padron Other Provider Unavailable Dr. Thomas Ahumada Other Provider Unavaila Dr. Moise Jo Attending Provider Dr. Hernando Padron Attending Provider Unavailable Dr. Pratima Jaime Attending Provider Dr. Pratima Jaime Other Provider Dr. Serge Banks Attending Provider Dr. Rebecca Resendiz Referring Provider Orestes BELLOWS CHARGER ASSEMBLER, BELLOWS CHARGER ASSEMBLER-C Hudson Primary Care Provider Orestes BELLOWS CHARGER ASSEMBLER, BELLOWS CHARGER ASSEMBLER-C Barber Referring Provider [phone] Dr. Delfin Jeffries Attending Provider Dr. Pratima Jaime Referring Provider Dr. Sharmila Jackson Attending Provider Orestes BELLOWS CHARGER ASSEMBLER, BELLOWS CHARGER ASSEMBLER-C Hudson Primary Care Provider Orestes BELLOWS CHARGER ASSEMBLER, BELLOWS CHARGER ASSEMBLER-C Barber Referring Provider [phone] Dr. Delfin Jeffries Attending Provider Gilma ELMORE MD Jonathan Primary Care Provider Unava ilable Gilma ELMORE MD Jonathan Referring Provider Unavaila Dr. Delfin Hutchins Attending Provider Dr. Jonathan Dillard Sr. Primary Care Provider [phone] Dr. Jonathan Dillard Sr. Referring Provider [phone] Dr. Delfin Jeffries Attending Provider SOLITARIO STUBBS, DR CAMPOS Attending Unavailabl e LORETHAN BICYCLE SERVICE TECHNICIAN-AERONAUTICS COMMISSION DIRECTOR, [facility] Unavail renata JEREZ MD, DR CAMPOS Attending Unavailabl e LORETHAN BICYCLE SERVICE TECHNICIAN-AERONAUTICS COMMISSION DIRECTOR, [facility] Unavail renata JEREZ MD, DR CAMPOS Attending Unavailabl e LORETHAN BICYCLE SERVICE TECHNICIAN-AERONAUTICS COMMISSION DIRECTOR, BARBER Primary Care Unavail able FLIGHT BICYCLE SERVICE TECHNICIAN-AERONAUTICS COMMISSION DIRECTOR, RENETTA Attending Unavail able LORSON BICYCLE SERVICE TECHNICIAN-AERONAUTICS COMMISSION DIRECTOR, [facility] Unavail able CRISSY STUBBS, DR OSEI PACHECO Attending Unav ailable LORSON BICYCLE SERVICE TECHNICIAN-AERONAUTICS COMMISSION DIRECTOR, [facility] Unavail able FLIGHT BICYCLE SERVICE TECHNICIAN-AERONAUTICS COMMISSION DIRECTOR, RENETTA Attending Unavail able LORSON BICYCLE SERVICE TECHNICIAN-AERONAUTICS COMMISSION DIRECTOR, [facility] Unavail able BYRON STUBBS, TRACE Sprague Attending Unavailable LORSON BICYCLE SERVICE TECHNICIAN-AERONAUTICS COMMISSION DIRECTOR, [facility] Unavail able Lorson BICYCLE SERVICE TECHNICIAN-AERONAUTICS COMMISSION DIRECTOR, [facility] Pr ovider Deperro Sr., Dr. Castillo Primary Care Provider Gilma Sr., Dr. Castillo Referring Provider Dr. Delfin Jeffries Attending Provider Dr. Calvin Hester Emergency Provider Dr. Lucia Jurado Attending Provider [phone] Dr. Calvin Hester Referring Provider Dr. Susy Delarosa Attending Provider VARSHA SOTELO Attending Unavail able ORESTES, [facility] Unavaila ble Lorson BICYCLE SERVICE TECHNICIAN-AERONAUTICS COMMISSION DIRECTOR, [facility] Pr ovider Lorson BICYCLE SERVICE TECHNICIAN-AERONAUTICS COMMISSION DIRECTOR, [facility] Pr ovider ORESTES [facility] Unavaila ble DELFIN MELARA Admitting Unavailable VARSHA SOTELO Attending Unavail able VARSHA SOTELO Admitting Unavail able VARSHA SOTELO Attending Unavail able ORESTES [facility] Unavaila ble LORSON, [facility] Unavaila ble LORSON, [facility] Unavaila ble ELIDA VILLAREAL Attending Unavailable LORSON, [facility] Unavaila ble LORSON, [facility] Unavaila ble RITU HARRELL Referring Unavailable LORSON, [facility] Unavaila ble Deperro Sr., Jonathan Primary Care Unavailable Deperro OLS, Jonathan Attending Unavailable Deperro OLS, Jonathan Referring Unavailable Deperro Sr., Jonathan Primary Care Unavailable Gilma ELMORE, Jonathan Attending Unavailable Gilma ELMORE, Jonathan Attending Unavailable Deperro Sr., Jonathan Primary Care Unavailable Gilma ELMORE, Jonathan Attending Unavailable Deperro Sr., Jonathan Primary Care Unavailable Royce Vigil Attending Unavailable Deperro Sr., Jonathan Primary Care Unavailable Allergies Allergy Classification Reported Allergen(s) Allergy Type Date of Onset Reaction(s) Facility (20 sources) cyclobenzaprine; Translations: [cyclobenzaprine] Drug Allergy 3 [facility] (20 sources) tiZANidine; Translations: [tizanidine] Drug Allergy 3 [facility] (6 sources) Acetaminophen / oxyCODONE; Translations: [OXYCODONE-ACETAMIN OPHEN] Drug Allergy 6 Palpitations [facility] 3 Repository (1 source) cyclobenzaprine Drug Allergy 5 [facility] Repository (1 source) tiZANidine Drug Allergy 5 [facility] Repository Medications Current Medications Medication Drug [...] 2023 12:00am take 2 tablets by mo ut once daily at bedtime acetaminophen (Tylenol) 325 [...] T PO EVERY 6 HOURS NEEDED 12 3 July 14, 2023 amoxicillin 875 mg / clavulanate 125 mg [...] preference, # 1 EA, 0 Refill(s), Pharmacy: [address], cm, 09/09/20 11:16:00 EDT, Height, 96.3, [...] HOURS NEEDED August 09, 2023 12:00am Start: 08-09-2023 take 20 mg by mouth twice herber [...] Diarrhea, # 60 cap(s), 11 Refill(s), Pharmacy: [address], 166, cm, 09/09/20 11:16:00 EDT, Height, [...] diabetes, # 1 EA, 0 Refill(s), Pharmacy: [facility], 165, cm, 01/16/21 13:33:00 EST, Height, 94.9, kg, 09/16/21 13:29:00 EDT, Dosing Weight Start Date: 09/28/21 Status: Ordered Start: 09-23-2021 DME MISCellane ous See Instructions, True Plus Lancets check blood sugar once daily. #1 box for 90 day supply x 0 refills Dx: diabetes, # 1 EA, 3 Refill(s), Pharmacy: [facility], Diabetes, 165, cm, 01/16/21 13:33:00 EST, Height, 94.9, kg, 09/16/21... Start Date: 09/23/21 Status: Ordered Start: 04-30-2021 DME MISCellane ous See Instructions, True Plus Lancets check blood sugar once daily. #1 box for 90 day supply x 0 refills Dx: diabetes, # 1 EA, 0 Refill(s), Pharmacy: [facility], Diabetes, 165, cm, 01/16/21 13:33:00 EST, Height, 96.36, kg, ... Start Date: 04/30/21 Status: Ordered Start: 04-30-2021 DME MISCellane ous See Instructions, Alcohol Pads Use as directed Dispense 90 day supply x 0 refills DX: diabetes, # 1 EA, 0 Refill(s), Pharmacy: [facility], 165, cm, 01/16/21 13:33:00 [...] Ordered docusate sodium 50 mg / sennosides, [facility] 8.6 mg oral tablet (20 sources) Start: 09-23-2023 End: 10-31-2023 take 1 tablet by mouth every twenty-four hours as needed 1 tablet, oral, Daily PRN, constipation, first line, Starting on Tue09/23/23 at 0744 Start: 08-26-2023 Senexon-S Oral , qHS, 0 Refill(s) Start Date: 08/26/23 Status: Ordered Start: 05-04-2023 take 1 tablet by yolanda twice daily Sennosides-Docusate Sodium (Senna Plus) 8.6-50 mg capsule Active 1 TAB-CAP PO TWICE A DAY May 03, 2023 11:00pm Start: 07-20-2022 take 1 tablet by yolanda th twice daily docusate-senna 50 mg-8.6 mg oral tablet Dose = 1 tab(s), Oral, BID, 0 Refill(s) Start Date: 07/20/22 Status: Ordered 0.4 ml enoxaparin sodium 100 mg/ml prefilled syringe (1 source) Low Molecular Weight Heparin Start: 09-15-2023 inject 40 mg by subcutaneous injection every twenty-four hours 40 mg, subcutaneous, Every 24 hours, First dose on Yesenia 09/15/23 at 2000 Indications: venous thrombosis estrogens, conjugated ([facility]) 0.625 mg/ml vaginal cream (8 sources) Estrogen [...] # 16 gram(s), 11 Refill(s), Pharmacy: [facility] 166, cm, 09/09/20 11:16:00 EDT, Height, kg, 09/09/20 11:16:00 EDT, Dosing Weight Start Date: 10/28/20 Status: Ordered folic acid 1 mg oral tablet (20 sources) Start: 11-11-2022 take 1 mg by mouth once daily Folic Acid Active 1 MG PO DAILY November 11, 2022 12:00am Freestyle Ririe 14 day sensor (1 source) Start: 09-16-2021 Freestyle Read er 14 day sensor See Instructions, 1 month supply, # 2 EA, 0 Refill(s), Pharmacy: [facility], 165, cm, 01/16/21 13:33:00 [...] qDay, # 30 tab(s), 3 Refill(s), Pharmacy: [facility], Diarrhea Diabetes mellitus type [...] oral, Every 8 hours, First dose on Tue09/24/23 at 0715 Hold dose if systolic bp [...] qDay, # 90 tab(s), 3 Refill(s), Pharmacy: [facility], 165, cm, 05/04/22 10:05:00 [...] qDay, # 90 tab(s), 3 Refill(s), Pharmacy: [facility], 165, cm, 01/16/21 13:33:00 [...] hours, First dose on Yesenia 09/15/23 at 2044 Do NOT give with alcohol or drug [...] qDay, # 90 tab(s), 3 Refill(s), Pharmacy: [facility], 165, cm, 05/04/22 10:05:00 [...] qDay, # 90 tab(s), 3 Refill(s), Pharmacy: [facility], 165, cm, 01/16/21 13:33:00 [...] 911., # 25 tab(s), 0 Refill(s), Pharmacy: [facility], 165, cm, 01/16/21 13:33:00 EST, Height, kg, 2... Start Date: 04/22/21 Status: Ordered nystatin 100,000 units/g topical cream (1 source) Start: 09-16-2021 End: 12-09-2021 nystatin 100,000 units/g topical cream Apply 1 marcy, Topical, BID, X 14 day(s), # 30 gram(s), 5 Refill(s), Pharmacy: [facility], Cream, 165, cm, 01/16/21 [...] PRN, flatulence, Starting on Tue09/23/23 at 0744 Start: 05-04-2023 take 1 tablet by yolanda th once daily Simethicone (Gas Relief (Simethicone)) 80 [...] Start: 08-09-2023 take 1 tablet by yolanda th at bedtime Cyanocobalamin (Vitamin B-12) (B-12 Dots) 500 mcg tablet Active 500 MCG PO AT BEDTIME August 08, 2023 11:00pm Start: 08-09-2023 take 2 tablets by mo [facility] once daily Cyanocobalamin (Vitamin B-12) (B-12 Dots) [...] mouth once 10 mg, oral, Once, On Tue at 2100, For 1 dose Do not [...] Minutes, Every 24 hours, First dose on 09/25/23 at 1345 premix bag Suspected Indication [...] Docusate Sodium Discontinued 100 MG PO DAILY 60 February 25, 2023 10:30am September 14, 2023 10:26pm estradiol 0.1 mg/ml vaginal cream (12 sources) Estrogen Start: 03-01-2022 End: 02-24-2023 estradiol 0.1 mg/g vaginal cream Dose = 1 appl, Vaginal, 2X/week, # 42.5 gram(s), 11 Refill(s), Pharmacy: [facility], 165, cm, 01/06/22 9:22:00 [...] hour 75 mL/hr, intravenous, Continuous, Starting on 09/19/23 at 1500, For 1 day Start: 09-16-2023 25 g, intraven ous, Every 15 min PRN, For blood glucose less than or equal to 40 mg/dL, Starting on 09/16/23 at 0017 May repeat until blood glucose [...] clinician) Start: 09-27-2023 take 1 capsule by [facility] once daily L. acidophilus-L. rhamnosus (Probiotic) 15 billion cell capsule Indications: Dilated cardiomyopathy (CMS/HCC) Take 1 capsule by mouth once daily. For 7 days ending 09/20/23. ([facility] [employer] Probiotic 15 BILLION per SNF [...] Daily, # 90 tab(s), 3 Refill(s), Pharmacy: [facility], 165, cm, 01/16/21 13:33:00 EST, Height, kg, 04/06/21 13:21:00 EDT, Dosing Weight Start Date: 04/22/21 Status: Ordered Start: 06-20-2013 Losartan Potas sium 50 MG Oral Tablet Quantity: 30 Refills: 0 Start : 20-Jun-2013 Active 50 ml magnesium sulfate 40 mg/ml injection (1 source) Start: 09-18-2023 End: 09-18-2023 2 g, intravenous, at 25 mL/hr, Administer over 2 Hours, Once, On 09/18/23 at 0915, For 1 dose meloxicam 7.5 [...] Date: 07/20/22 Status: Ordered polyethylene glycol 3350 68172 mg powder for oral solution (20 sources) [...] Date: 07/20/22 Status: Ordered polyethylene glycol 3350 166375 mg / potassium chloride 2970 mg / sodium bicarbonate 6740 mg / sodium chloride 5860 mg / sodium sulfate 14883 mg powder for oral solution (1 source) Osmotic Laxative Start: 08-16-2023 End: 10-31-2023 polyethylene glycol 236-22.74-6.74 -5.86 gram solution 100 ml potassium chloride 0.2 meq/ml injection (20 sources) Start: 09-18-2023 End: 11-05-2023 take 20 mEq intravenously every two hours [...] dilution, intravenous, Once in imaging, Starting on Tue09/19/23 at 1150, For 1 dose, CV Medications [...] Translations: [Anemia, unspecified] 02-25-2023 Episodic Diabetes mellitus with complications (1 source) Type 2 diabetes mellitus with diabetic neuropathy, unspecified; Translations: [Type 2 diabetes mellitus with diabetic neuropathy, unspecified] Onset: 5 Chronic Diabetes mellitus without complication (11 sources) Diabetes [...] Test Name Value Interpretation Reference Range Facility HH, Hemoglobin AND Hematocri ton 09-11-2025 Hematocrit (Bld) [Volume fraction] 28.5 % Low 37-47 [facility] Comment on above: Order Comment: 310-2 Performed By: #### L 100.0600 #### [facility] [address] [place], [address] Hemoglobin (Bld) [Mass/Vol] 8.4 g/dL Low 12.0-15.0 [facility] Comment on above: Order Comment: 310-2 Performed By: #### L 100.0600 #### [facility] [address] [place], [address] Basic Metabolic Profile (BMP )on 09-10-2025 BUN/CRE 15.9 RATIO Normal -20 [facility] Comment on above: Performed By: #### L 500.2500, BTS, L100.0500 #### [facility] [address] [place], [address] Calcium [Mass/Vol] 8.5 mg/dL Normal 7.6-11.0 [facility] Comment on above: Performed By: #### L 500.2500, BTS, L100.0500 #### [facility] [address] [place], [address] Chloride [Moles/Vol] 101 mmol/L Normal 98-108 [facility] Comment on above: Performed By: #### L 500.2500, BTS, L100.0500 #### [facility] [address] [place], [address] CO2 [Moles/Vol] 34.5 mmol/L High 21.0-32.0 [facility] Comment on above: Performed By: #### L 500.2500, BTS, L100.0500 #### [facility] [address] [place], [address] Creatinine [Mass/Vol] 0.82 mg/dL Normal 0.70-1.20 [facility] Comment on above: Performed By: #### L 500.2500, BTS, L100.0500 #### [facility] [address] [place], [address] ECRCL 62.66 ml/min Normal 50-250 [facility] Comment on above: Performed By: #### L 500.2500, BTS, L100.0500 #### [facility] [address] [place], [address] GAP 9 Normal 5-15 [facility] Comment on above: Performed By: #### L 500.2500, BTS, L100.0500 #### [facility] [address] [place], [address] GFR/1.73 sq M.predicted among non-blacks MDRD (S/P/Bld) [Vol rate/Area] 74 mL/min/{1.73_m2} Normal >60 [facility] Comment on above: Result Comment: mL/m in/1.73m2 CKD-EPI Creatinine Equation (2020) Performed By: #### L 500.2500, BTS, L100.0500 #### [facility] [address] [place], [address] Glucose [Mass/Vol] 182 mg/dL High 70-99 [facility] Comment on above: Performed By: #### L 500.2500, BTS, L100.0500 #### [facility] [address] [place], [address] Potassium [Moles/Vol] 4.3 mmol/L Normal 3.3-5.1 [facility] Comment on above: Result Comment: Hemo lysis present, Results??could be affected. ?? Performed By: #### L 500.2500, BTS, L100.0500 #### [facility] [address] [place], [address] Sodium [Moles/Vol] 145 mmol/L Normal 133-145 [facility] Comment on above: Performed By: #### L 500.2500, BTS, L100.0500 #### [facility] [address] [place], [address] Urea nitrogen [Mass/Vol] 13 mg/dL Normal 4-19 [facility] Comment on above: Performed By: #### L 500.2500, BTS, L100.0500 #### [facility] [address] [place], [address] CBC-Complete Blood Cnt No Di ffon 09-10-2025 Erythrocyte distribution width (RBC) [Ratio] 14.3 % Normal 11.6-14.6 [facility] Comment on above: Performed By: #### L 500.2500, BTS, L100.0500 #### [facility] [address] [place], [address] Hematocrit (Bld) [Volume fraction] 26.5 % Low 37-47 [facility] Comment on above: Performed By: #### L 500.2500, BTS, L100.0500 #### [facility] [address] [place], [address] Hemoglobin (Bld) [Mass/Vol] 7.9 g/dL Low 12.0-15.0 [facility] Comment on above: Performed By: #### L 500.2500, BTS, L100.0500 #### [facility] [address] [place], [address] MCH (RBC) [Entitic mass] 27.8 pg Normal 27.0-32.0 [facility] Comment on above: Performed By: #### L 500.2500, BTS, L100.0500 #### [facility] [address] [place], [address] MCHC (RBC) [Mass/Vol] 29.8 g/dL Low 32-36 [facility] Comment on above: Performed By: #### L 500.2500, BTS, L100.0500 #### [facility] [address] [place], [address] MCV (RBC) [Entitic vol] 93.3 fL Normal 81-99 [facility] Comment on above: Performed By: #### L 500.2500, BTS, L100.0500 #### [facility] [address] [place], [address] Platelet mean volume (Bld) [Entitic vol] 10.7 fL Normal 6.2-12.0 [facility] Comment on above: Performed By: #### L 500.2500, BTS, L100.0500 #### [facility] [address] [place], [address] Platelets (Bld) [#/Vol] 111 10*3/uL Low 150-450 [facility] Comment on above: Performed By: #### L 500.2500, BTS, L100.0500 #### [facility] [address] [place], [address] RBC (Bld) [#/Vol] 2.84 10*6/uL Low 4.2-5.4 [facility] Comment on above: Performed By: #### L 500.2500, BTS, L100.0500 #### [facility] [address] [place], [address] RDW SD 48.1 fl High 35.1-43.9 [facility] Comment on above: Performed By: #### L 500.2500, BTS, L100.0500 #### [facility] [address] [place], [address] WBC (Bld) [#/Vol] 5.1 10*3/uL Normal 4.4-11.0 [facility] Comment on above: Performed By: #### L 500.2500, BTS, L100.0500 #### [facility] [address] [place], [address] Emergency Department Summary on 09-10-2025 Emergency Department Summary [facility] Medical Records Department [address] [place] [address] Emergency Department Summary 09/10/25 MR#: [id number] Acct: [id number] Name: POLI RAMIREZ Rep #: [id number] : 1950 74 From: Royce Vigil MD PCP: Dr. Jonathan Dillard Sr., DO Status:REG ER Location: ED HPI History of Present Illness Chief Complaint: GI Bleed Detail of Chief Complaint: Blood from rectum and anemia Informant: patient, EMS and SNF Onset/Context/Timing Onset: Weeks (Patient states she is noted blood for 1 week) Context: Sudden Onset Timing: Intermittent Quality: Dark red blood with bowel movement Location: Rectum/anus Current Severity: Gone Maximum Severity: Moderate Worsened by: Not applicable Relieved by: Not applicable Associated Symptoms Associated Symptoms: Patient denies orthostatic symptoms or dyspnea, [place] exertion, chest bigg Narrative Narrative: Patient is 74-year-old woman. She has a history of colitis, iron deficiency anemia, thrombocytopenia, congestive heart failure and COPD. She was brought to the ER because of blood per rectum. Her hemoglobin yesterday was 7. Hematocrit was 24.4. On September 04 her H H was 7.2 and 24.7. Prior was September 2023 and her H H at that time was 8.2 and 29.3 with macrocytic indices patient is on iron and states her stool is dark because of this. She denies dysuria, frequency, urgency or hematuria. She denies bruising easily. She is not on an anticoagulant or antithrombotic. Prior similar symptoms: Yes Recent Illness/Hospitalization: No PFSH PFS Medical History Colitis On mechanically assisted ventilation Lung nodules Pneumonia Acute on chronic respiratory failure with hypoxia and hypercapnia Respiratory failure with hypoxia Vitamin B12 deficiency Thrombocytopenia Iron deficiency anemia Other lack of coordination Muscle weakness (generalized) Other pancytopenia Other displaced fracture of sixth cervical vertebra, subsequent encounter for fracture with routine healing Insomnia, unspecified History of falling Personal history of nicotine dependence Personal history of malignant neoplasm of breast Other displaced fracture of seventh cervical vertebra, subsequent encounter for fracture with routine healing Urinary incontinence Dysphagia Primary osteoarthritis, left shoulder Primary osteoarthritis, right shoulder GERD (gastroesophageal reflux disease) Chronic respiratory failure with hypoxia COPD (chronic obstructive pulmonary disease) Venous insufficiency (chronic) (peripheral) Venous insufficiency 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 Myocardial infarction Atherosclerotic heart disease Essential hypertension Obstructive sleep apnea Pure hypercholesterolemia Type 2 diabetes mellitus with diabetic neuropathy Anemia Unspecified abnormalities of gait and mobility Home Medications ???Medication ???Instructions ???Recorded ???Last Taken ???Type nystatin 100,000 unit/gram topical 1 applic topical BID Check with 11/24/21 Unknown History cream primary doctor simvastatin 10 mg tablet 10 mg PO QHS CHOLESTEROL 11/24/21 Unknown History bisacodyl 10 mg rectal suppository 10 mg SC DAILY PRN constipation 11/11/22 Unknown History cranberry fruit 400 mg capsule 400 mg PO DAILY SUPPLEMENT 2 Unknown History folic acid 1 mg tablet 1 mg PO DAILY SUPPLEMENT 11/11/22 Unknown History acetaminophen 325 mg tablet 650 mg PO QHS PAIN 04/19/23 Unknow n History carvedilol 3.125 mg tablet 3.125 mg PO BID HEART 04/19/23 Unk nown History gabapentin 100 mg capsule 100 mg PO TID NERVE PAIN 04/19/23 Unknown History lisinopril 2.5 mg tablet 2.5 mg PO DAILY BLOOD PRESSURE 05/06 Unknown History potassium chloride 20 mEq 20 meq PO DAILY SUPPLEMENT 3 Unknown History tablet,extended release(part/cryst) ferrous sulfate 325 mg (65 mg 325 mg PO BID 05/04/23 Unknown His tory iron) tablet ondansetron HCl 4 mg tablet 4 mg PO Q8H PRN nausea and vomitin g 05/04/23 Unknown History pantoprazole 40 mg tablet,delayed 40 mg PO DAILY 05/04/23 Unknown H istory release sennosides 8.6 mg-docusate sodium 1 tab-cap PO BID PRN constipation 05/04/23 Unknown History 50 mg capsule (Senna Plus) simethicone 80 mg chewable tablet 80 mg PO DAILY abdominal distenti on 05/04/23 Unknown History (Gas Relief (simethicone)) hydrocodone-acetaminophen 5-325mg 1 tab PO Q6H PRN PRN Pain 3 days 07/14/23 Unknown Rx 5mg-325mg #12 TABLETS cyanocobalamin (vitamin B-12) 500 500 mcg PO QHS 08/09/23 Unknown H istory mcg tablet (B-12 DOTS) dicyclomine 20 mg tablet 20 mg PO BID abdominal pain Unknown History magnesium hydroxide 400 mg/5 mL 30 ml PO DAILY PRN constipation Unkno (more content not included)... Normal [facility] Stool Occult Blood iFOBon STOB Positive Normal [facility] Comment on above: Performed By: #### L 500.2500, BTS, L100.0500 #### [facility] [address] [place], [place], [id number] Type AND Screenon 09-10-2025 Ab SCREEN GEL Negative Normal [facility] Comment on above: Order Comment: HGI Performed By: #### L 500.2500, BTS, L100.0500 #### [facility] [address] [place], [address] HH, Hemoglobin AND Hematocri ton 09-09-2025 Hematocrit (Bld) [Volume fraction] 24.4 % Low 37-47 [facility] Comment on above: Order Comment: 310.2 Performed By: #### L 100.0600 #### [facility] [address] [place], [address] Hemoglobin (Bld) [Mass/Vol] 7.0 g/dL Low 12.0-15.0 [facility] Comment on above: Order Comment: 310.2 Performed By: #### L 100.0600 #### [facility] [address] [place], [address] Ferritinon 09-06-2025 Ferritin [Mass/Vol] 52 ng/mL Normal 22-378 [facility] Comment on above: Order Comment: 310.2 Performed By: #### L 500.2500, BTS, L100.0500 #### [facility] [address] [place], [address] Iron+Iron Binding Capacityon 09-06-2025 TIBC 182 ug/dL Low 250-450 [facility] Comment on above: Order Comment: 310.2 Performed By: #### L 500.2500, BTS, L100.0500 #### [facility] [address] [place], [address] Vitamin B12on 09-06-2025 Cobalamin (Vitamin B12) [Mass/Vol] 195 pg/mL Normal 180-914 [facility] Comment on above: Order Comment: 310.2 Performed By: #### L 503.0106, L503.6030, L503.6550 #### [facility] [address] [place], [address] CBC-Complete Blood Cnt No Di ffon 09-04-2025 Platelets (Bld) [#/Vol] 91 10*3/uL Low 150-450 [facility] Comment on above: Order Comment: 310.2 Performed By: #### L 100.0500, L500.4050, L501.9985 #### [facility] [address] [place], [address] Comprehensive Metabolic Prof ilon 09-04-2025 Albumin [Mass/Vol] 3.4 g/dL Normal 3.4-4.8 [facility] Comment on above: Order Comment: 310.2 Performed By: #### L 100.0500, L500.4050, L501.9985 #### [facility] [address] [place], [address] Albumin/Globulin [Mass ratio] 1.2 {ratio} Normal 0.9-2.4 [facility] Comment on above: Order Comment: 310.2 Performed By: #### L 100.0500, L500.4050, L501.9985 #### [facility] [address] [place], [address] ALK PHOS 61 U/L Normal 35-104 [facility] Comment on above: Order Comment: 310.2 Performed By: #### L 100.0500, L500.4050, L501.9985 #### [facility] [address] [place], [address] ALT [Catalytic activity/Vol] U/L Normal <=34 [facility] Comment on above: Order Comment: 310.2 Performed By: #### L 100.0500, L500.4050, L501.9985 #### [facility] [address] [place], [address] AST [Catalytic activity/Vol] 14 U/L Normal <=31 [facility] Comment on above: Order Comment: 310.2 Performed By: #### L 100.0500, L500.4050, L501.9985 #### [facility] [address] [place], [address] Bilirubin [Mass/Vol] 0.22 mg/dL Normal 0.00-1.30 [facility] Comment on above: Order Comment: 310.2 Performed By: #### L 100.0500, L500.4050, L501.9985 #### [facility] [address] [place], [address] BUN/CRE 29.8 RATIO High 10-20 [facility] Comment on above: Order Comment: 310.2 Performed By: #### L 100.0500, L500.4050, L501.9985 #### [facility] [address] [place], [address] Calcium [Mass/Vol] 8.4 mg/dL Normal 7.6-11.0 [facility] Comment on above: Order Comment: 310.2 Performed By: #### L 100.0500, L500.4050, L501.9985 #### [facility] [address] [place], [address] Chloride [Moles/Vol] 104 mmol/L Normal 98-108 [facility] Comment on above: Order Comment: 310.2 Performed By: #### L 100.0500, L500.4050, L501.9985 #### [facility] [address] [place], [address] CO2 [Moles/Vol] 35.7 mmol/L High 21.0-32.0 [facility] Comment on above: Order Comment: 310.2 Performed By: #### L 100.0500, L500.4050, L501.9985 #### [facility] [address] [place], [address] Creatinine [Mass/Vol] 0.53 mg/dL Low 0.70-1.20 [facility] Comment on above: Order Comment: 310.2 Performed By: #### L 100.0500, L500.4050, L501.9985 #### [facility] [address] [place], [address] GAP 7 Normal 5-15 [facility] Comment on above: Order Comment: 310.2 Performed By: #### L 100.0500, L500.4050, L501.9985 #### [facility] [address] [place], [address] GFR/1.73 sq M.predicted among non-blacks MDRD (S/P/Bld) [Vol rate/Area] 96 mL/min/{1.73_m2} Normal >60 [facility] Comment on above: Order Comment: 310.2 Result Comment: mL/m in/1.73m2 CKD-EPI Creatinine Equation (2020) Performed By: #### L 100.0500, L500.4050, L501.9985 #### [facility] [address] [place], [address] Globulin (S) [Mass/Vol] 2.7 g/dL Normal 2.2-4.2 [facility] Comment on above: Order Comment: 310.2 Performed By: #### L 100.0500, L500.4050, L501.9985 #### [facility] [address] [place], [address] Glucose [Mass/Vol] 118 mg/dL High 70-99 [facility] Comment on above: Order Comment: 310.2 Performed By: #### L 100.0500, L500.4050, L501.9985 #### [facility] [address] [place], [address] Potassium [Moles/Vol] 3.8 mmol/L Normal 3.3-5.1 [facility] Comment on above: Order Comment: 310.2 Performed By: #### L 100.0500, L500.4050, L501.9985 #### [facility] [address] [place], [address] Sodium [Moles/Vol] 146 mmol/L High 133-145 [facility] Comment on above: Order Comment: 310.2 Performed By: #### L 100.0500, L500.4050, L501.9985 #### [facility] [address] [place], [address] T PROT 6.1 g/dL Normal 5.9-8.4 [facility] Comment on above: Order Comment: 310.2 Performed By: #### L 100.0500, L500.4050, L501.9985 #### [facility] [address] [place], [address] Urea nitrogen [Mass/Vol] 16 mg/dL Normal 4-19 [facility] Comment on above: Order Comment: 310.2 Performed By: #### L 100.0500, L500.4050, L501.9985 #### [facility] [address] [place], [address] Hemoglobin A1con 09-04-2025 HbA1c (Bld) [Mass fraction] % Normal <=5.6 [facility] Comment on above: Order Comment: 310.2 Result Comment: Norm al < 5.7 % Prediabetic 5.7 - 6.4 % Diabetic >or= 6.5 % Please note range changes. Performed By: #### L 100.0500, L500.4050, L501.9985 #### [facility] [address] [place], [address] CBC-Complete Blood Cnt No Di ffon 09-03-2025 HCT Normal 37-47 [facility] Comment on above: Order Comment: 310.2 Result Comment: KELLY JAIN @610. TRY 09/04/25 Performed By: #### L 500.2500, BTS, L100.0500 #### [facility] [address] [place], [address] HGB Normal 12.0-15.0 [facility] Comment on above: Order Comment: 310.2 Result Comment: KELLY JAIN @610. TRY 09/04/25 Performed By: #### L 500.2500, BTS, L100.0500 #### [facility] [address] [place], [address] MCH Normal 27.0-32.0 [facility] Comment on above: Order Comment: 310.2 Result Comment: KELLY TOLD SUSY @610. TRY 09/04/25 Performed By: #### L 500.2500, BTS, L100.0500 #### [facility] [address] [place], [address] MCHC Normal 32-36 [facility] Comment on above: Order Comment: 310.2 Result Comment: UTO TOLD SUSY @610. TRY 09/04/25 Performed By: #### L 500.2500, BTS, L100.0500 #### [facility] [address] [place], [address] MCV Normal 81-99 [facility] Comment on above: Order Comment: 310.2 Result Comment: JALENO TOLD SUSY @610. TRY 09/04/25 Performed By: #### L 500.2500, BTS, L100.0500 #### [facility] [address] [place], [address] PLT Normal 150-450 [facility] Comment on above: Order Comment: 310.2 Result Comment: KELLY TOLD SUSY @610. TRY 09/04/25 Performed By: #### L 500.2500, BTS, L100.0500 #### [facility] [address] [place], [address] RBC Normal 4.2-5.4 [facility] Comment on above: Order Comment: 310.2 Result Comment: KELLY TOLD SUSY @610. TRY 09/04/25 Performed By: #### L 500.2500, BTS, L100.0500 #### [facility] [address] [place], [address] RDW CV Normal 11.6-14.6 [facility] Comment on above: Order Comment: 310.2 Result Comment: KELLY TOLD SUSY @610. TRY 09/04/25 Performed By: #### L 500.2500, BTS, L100.0500 #### [facility] [address] [place], [address] RDW SD Normal 35.1-43.9 [facility] Comment on above: Order Comment: 310.2 Result Comment: KELLY JAIN @610. TRY 09/04/25 Performed By: #### L 500.2500, BTS, L100.0500 #### [facility] [address] [place], [address] WBC Normal 4.4-11.0 [facility] Comment on above: Order Comment: 310.2 Result Comment: KELLY JAIN @610. TRY 09/04/25 Performed By: #### L 500.2500, BTS, L100.0500 #### [facility] [address] [place], [address] Comprehensive Metabolic Prof ilon 09-03-2025 ALB Normal 3.4-4.8 [facility] Comment on above: Order Comment: 310.2 Result Comment: KELLY JAIN @610. TRY 09/04/25 Performed By: #### L 500.2500, BTS, L100.0500 #### [facility] [address] [place], [address] ALK PHOS Normal 35-104 [facility] Comment on above: Order Comment: 310.2 Result Comment: KELLY JAIN @610. TRY 09/04/25 Performed By: #### L 500.2500, BTS, L100.0500 #### [facility] [address] [place], [address] ALT Normal <=34 [facility] Comment on above: Order Comment: 310.2 Result Comment: KELLY JAIN @610. TRY 09/04/25 Performed By: #### L 500.2500, BTS, L100.0500 #### [facility] [address] [place], [address] AST Normal <=31 [facility] Comment on above: Order Comment: 310.2 Result Comment: KELLY JAIN @610. TRY 09/04/25 Performed By: #### L 500.2500, BTS, L100.0500 #### [facility] [address] [place], [address] BUN Normal 4-19 [facility] Comment on above: Order Comment: 310.2 Result Comment: KELLY JAIN @610. TRY 09/04/25 Performed By: #### L 500.2500, BTS, L100.0500 #### [facility] [address] [place], [address] BUN/CRE Normal 10-20 [facility] Comment on above: Order Comment: 310.2 Result Comment: KELLY JAIN @610. TRY 09/04/25 Performed By: #### L 500.2500, BTS, L100.0500 #### [facility] [address] [place], [address] Calcium Normal 7.6-11.0 [facility] Comment on above: Order Comment: 310.2 Result Comment: KELLY JAIN @610. TRY 09/04/25 Performed By: #### L 500.2500, BTS, L100.0500 #### [facility] [address] [place], [address] CL Normal 98-108 [facility] Comment on above: Order Comment: 310.2 Result Comment: KELLY JAIN @610. TRY 09/04/25 Performed By: #### L 500.2500, BTS, L100.0500 #### [facility] [address] [place], [address] CO2 Normal 21.0-32.0 [facility] Comment on above: Order Comment: 310.2 Result Comment: KELLY JAIN @610. TRY 09/04/25 Performed By: #### L 500.2500, BTS, L100.0500 #### [facility] [address] [place], [address] CREAT,SERUM Normal 0.70-1.20 [facility] Comment on above: Order Comment: 310.2 Result Comment: KELLY JAIN @610. TRY 09/04/25 Performed By: #### L 500.2500, BTS, L100.0500 #### [facility] [address] [place], [address] eGFR Normal >60 [facility] Comment on above: Order Comment: 310.2 Result Comment: KELLY JAIN @610. TRY 09/04/25 Performed By: #### L 500.2500, BTS, L100.0500 #### [facility] [address] [place], [address] GAP Normal 5-15 [facility] Comment on above: Order Comment: 310.2 Result Comment: KELLY JAIN @610. TRY 09/04/25 Performed By: #### L 500.2500, BTS, L100.0500 #### [facility] [address] [place], [address] GLU Normal 70-99 [facility] Comment on above: Order Comment: 310.2 Result Comment: KELLY JAIN @610. TRY 09/04/25 Performed By: #### L 500.2500, BTS, L100.0500 #### [facility] [address] [place], [address] Potassium Normal 3.3-5.1 [facility] Comment on above: Order Comment: 310.2 Result Comment: KELLY JAIN @610. TRY 09/04/25 Performed By: #### L 500.2500, BTS, L100.0500 #### [facility] [address] [place], [address] T BILI Normal 0.00-1.30 [facility] Comment on above: Order Comment: 310.2 Result Comment: KELLY JAIN @610. TRY 09/04/25 Performed By: #### L 500.2500, BTS, L100.0500 #### [facility] [address] [place], [address] T PROT Normal 5.9-8.4 [facility] Comment on above: Order Comment: 310.2 Result Comment: KELLY JAIN @610. TRY 09/04/25 Performed By: #### L 500.2500, BTS, L100.0500 #### [facility] [address] [place], [address] Comprehensive Metabolic Profil Normal 133-145 [facility] Comment on above: Order Comment: 310.2 Result Comment: KELLY JAIN @610. TRY 09/04/25 Performed By: #### L 500.2500, BTS, L100.0500 #### [facility] [address] [place], [address] CBC panel Auto (Bld)on 10-31 Erythrocyte distribution width (RBC) [Ratio] 14.4 % Normal 11.5-14.5 [facility] Comment on above: Performed By: #### 1 9123-9 #### BEVERLEY Poe ([id number]) [facility] ([facility]) [address] [place] [address] Hematocrit (Bld) [Volume fraction] 33.5 % Low 36.0-46.0 [facility] Comment on above: Performed By: #### 1 9123-9 #### BEVERLEY Poe ([id number]) [facility] ([facility]) [address] [place] [address] Hemoglobin (Bld) [Mass/Vol] 10.0 g/dL Low 12.0-16.0 [facility] Comment on above: Performed By: #### 1 9123-9 #### BEVERLEY Poe ([id number]) [facility] ([facility]) [address] [place] [address] MCH (RBC) [Entitic mass] 31.2 pg Normal 26.0-34.0 [facility] Comment on above: Performed By: #### 1 9123-9 #### BEVERLEY Poe ([id number]) [facility] ([facility]) [address] [place] [address] MCHC (RBC) [Mass/Vol] 29.9 g/dL Low 32.0-36.0 [facility] Comment on above: Performed By: #### 1 9123-9 #### BEVERLEY Poe ([id number]) [facility] ([facility]) [address] [place] [address] MCV (RBC) [Entitic vol] 104 fL High 80-100 [facility] Comment on above: Performed By: #### 1 9123-9 #### BEVERLEY Poe ([id number]) [facility] ([facility]) [address] [place] [address] Nucleated RBC/100 WBC (Bld) [Ratio] 0.0 /100 WBCs Normal 0.0-0.0 [facility] Comment on above: Performed By: #### 1 9123-9 #### BEVERLEY Poe ([id number]) [facility] ([facility]) [address] [place] [address] Platelets (Bld) [#/Vol] 112 x10*3/uL Low 150-450 [facility] Comment on above: Performed By: #### 1 9123-9 #### BEVERLEY Poe ([id number]) [facility] ([facility]) [address] [place] [address] RBC (Bld) [#/Vol] 3.21 x10*6/uL Low 4.00-5.20 [facility] Comment on above: Performed By: #### 1 9123-9 #### BEVERLEY DODD L ([id number]) [facility] ([facility]) [address] [place] [address] WBC (Bld) [#/Vol] 4.6 x10*3/uL Normal 4.4-11.3 [facility] Comment on above: Performed By: #### 1 9123-9 #### BEVERLEY Poe ([id number]) [facility] ([facility]) [address] [place] [address] Comprehensive metabolic 2000 panelon 10-31-2023 Albumin BCP dye [Mass/Vol] 3.6 g/dL Normal 3.4-5.0 [facility] Comment on above: Performed By: #### 1 9123-9 #### BEVERLEY Poe ([id number]) [facility] ([facility]) [address] [place] [address] ALP [Catalytic activity/Vol] 58 U/L Normal 33-136 [facility] Comment on above: Performed By: #### 1 9123-9 #### BEVERLEY Poe ([id number]) [facility] ([facility]) [address] [place] [address] ALT With P-5'-P [Catalytic activity/Vol] 16 U/L Normal 7-45 [facility] Comment on above: Result Comment: Ирина ents treated with Sulfasalazine may generate falsely decreased results for ALT. Performed By: #### 1 9123-9 #### BEVERLEY Poe ([id number]) [facility] ([facility]) [address] [place] [address] Anion gap [Moles/Vol] 8 mmol/L Low 10-20 [facility] Comment on above: Performed By: #### 1 9123-9 #### BEVERLEY Poe ([id number]) [facility] ([facility]) [address] [place] [address] AST With P-5'-P [Catalytic activity/Vol] 14 U/L Normal 9-39 [facility] Comment on above: Performed By: #### 1 9123-9 #### BEVERLEY Poe ([id number]) [facility] ([facility]) [address] [place] [address] Bilirubin [Mass/Vol] 0.5 mg/dL Normal 0.0-1.2 [facility] Comment on above: Performed By: #### 1 9123-9 #### BEVERLEY Poe ([id number]) [facility] ([facility]) [address] [place] [address] Calcium [Mass/Vol] 9.3 mg/dL Normal 8.6-10.6 [facility] Comment on above: Performed By: #### 1 9123-9 #### BEVERLEY DODD L ([id number]) [facility] ([facility]) [address] [place] [address] Chloride [Moles/Vol] 99 mmol/L Normal 98-107 [facility] Comment on above: Performed By: #### 1 9123-9 #### BEVERLEY DODD L ([id number]) [facility] ([facility]) [address] [place] [address] CO2 [Moles/Vol] 42 mmol/L Critically high 21-32 [facility] Comment on above: Performed By: #### 1 9123-9 #### BEVERLEY DODD L ([id number]) [facility] ([facility]) [address] [place] [address] Creatinine [Mass/Vol] 0.48 mg/dL Low 0.50-1.05 [facility] Comment on above: Performed By: #### 1 9123-9 #### BEVERLEY Poe ([id number]) [facility] ([facility]) [address] [place] [address] GFR/1.73 sq M.predicted MDRD (S/P/Bld) [Vol rate/Area] mL/min/{1.73_m2} Normal >60 [facility] Comment on above: Result Comment: Calc ulations of estimated GFR are performed using the 2020 CKD-EPI Study Refit equation without the race variable for the IDMS-Traceable creatinine methods. https://jasn.asnjournals.org/content/early//ASN.14767 42992 Performed By: #### 1 9123-9 #### BEVERLEY Poe ([id number]) [facility] ([facility]) [address] [place] [address] Glucose [Mass/Vol] 82 mg/dL Normal 74-99 [facility] Comment on above: Performed By: #### 1 9123-9 #### BEVERLEY Poe ([id number]) [facility] ([facility]) [address] [place] [address] Potassium [Moles/Vol] 4.3 mmol/L Normal 3.5-5.3 [facility] Comment on above: Performed By: #### 1 9123-9 #### BEVERLEY Poe ([id number]) [facility] ([facility]) [address] [place] [address] Protein [Mass/Vol] 6.8 g/dL Normal 6.4-8.2 [facility] Comment on above: Performed By: #### 1 9123-9 #### BEVERLEY Poe ([id number]) [facility] ([facility]) [address] [place] [address] Sodium [Moles/Vol] 145 mmol/L Normal 136-145 [facility] Comment on above: Performed By: #### 1 9123-9 #### BEVERLEY Poe ([id number]) [facility] ([facility]) [address] [place] [address]64 Urea nitrogen [Mass/Vol] 21 mg/dL Normal 6-23 [facility] Comment on above: Performed By: #### 1 9123-9 #### BEVERLEY Poe ([id number]) [facility] ([facility]) [address] [place] [address] Natriuretic peptide B [Mass/ Vol]on 10-31-2023 Interpretation and review of laboratory results Normal [facility] Natriuretic peptide B (Bld) [Mass/Vol] 98 pg/mL 0 - 99 pg/mL [facility] <100 pg/mL - Heart failure unlikely 100-299 [...] contact their local laboratory for further information. [facility] Natriuretic peptide B (Bld) [Mass/Vol] 98 pg/mL Normal 0-99 [facility] Comment on above: Order Comment: <100 pg/mL - Heart failure leiqudgy888-664 pg/mL - Intermediate probability of acute heart [...] By: #### 1 9123-9 #### BEVERLEY Poe ([id number]) [facility] ([facility]) [address] [place], [place] [id number] Blood type and Indirect anti body screen panel (Bld)on 10-28-2023 ABO group Nom (Bld) O [facility] Comment on above: Performed By: #### 1 9123-9 #### BEVERLEY Poe ([id number]) [facility] ([facility]) [address] [place] [address] Blood group antibody screen Ql Negative [facility] Comment on above: Performed By: #### 1 9123-9 #### BEVERLEY Poe ([id number]) [facility] ([facility]) [address] [place] [address]79 D Ag Ql (Bld) Positive [facility] Comment on above: Performed By: #### 1 9123-9 #### BEVERLEY Poe ([id number]) [facility] ([facility]) [address] [place] [address] CBC W Auto Differential pane l (Bld)on 10-28-2023 Basophils (Bld) [#/Vol] 0.01 x10*3/uL Normal 0.00-0.10 [facility] Comment on above: Performed By: #### 1 9123-9 #### BEVERLEY Poe ([id number]) [facility] ([facility]) [address] [place] [address] Basophils/100 WBC (Bld) 0.3 % Normal 0.0-2.0 [facility] Comment on above: Performed By: #### 1 9123-9 #### BEVERLEY DODD L ([id number]) [facility] ([facility]) [address] [place] [address] 49025 Eosinophils (Bld) [#/Vol] 0.05 x10*3/uL Normal 0.00-0.40 [facility] Comment on above: Performed By: #### 1 9123-9 #### BEVERLEY Poe ([id number]) [facility] ([facility]) [address] [place] [address] 31406 Eosinophils/100 WBC (Bld) 1.3 % Normal 0.0-6.0 [facility] Comment on above: Performed By: #### 1 9123-9 #### BEVERLEY Poe ([id number]) [facility] ([facility]) [address] [place] [address] 83148 Erythrocyte distribution width (RBC) [Ratio] 14.5 % Normal 11.5-14.5 [facility] Comment on above: Performed By: #### 1 9123-9 #### BEVERLEY Poe ([id number]) [facility] ([facility]) [address] [place] [address] 20758 Hematocrit (Bld) [Volume fraction] 32.3 % Low 36.0-46.0 [facility] Comment on above: Performed By: #### 1 9123-9 #### BEVERLEY Poe ([id number]) [facility] ([facility]) [address] [place] [address] 32558 Hemoglobin (Bld) [Mass/Vol] 9.5 g/dL Low 12.0-16.0 [facility] Comment on above: Performed By: #### 1 9123-9 #### BEVERLEY Poe ([id number]) [facility] ([facility]) [address] [place] [address] Immature granulocytes (Bld) [#/Vol] 0.02 x10*3/uL Normal 0.00-0.50 [facility] Comment on above: Performed By: #### 1 9123-9 #### BEVERLEY Poe ([id number]) [facility] ([facility]) [address] [place] [address] Immature granulocytes/100 WBC (Bld) 0.5 % Normal 0.0-0.9 [facility] Comment on above: Result Comment: Sharda ture Granulocyte Count (IG) includes promyelocytes, myelocytes and metamyelocytes but does not include bands. Percent differential counts (%) should be interpreted in the context of the absolute cell counts (cells/UL). Performed By: #### 1 9123-9 #### BEVERLEY Poe ([id number]) [facility] ([facility]) [id number] [place] [address] 68040 Lymphocytes (Bld) [#/Vol] 0.64 x10*3/uL Low 0.80-3.00 [facility] Comment on above: Performed By: #### 1 9123-9 #### BEVERLEY Poe ([id number]) [facility] ([facility]) [address] [place] [address] 41186 Lymphocytes/100 WBC (Bld) 16.0 % Normal 13.0-44.0 [facility] Comment on above: Performed By: #### 1 9123-9 #### BEVERLEY Poe ([id number]) [facility] ([facility]) [address] [place] [address] 60193 MCH (RBC) [Entitic mass] 30.2 pg Normal 26.0-34.0 [facility] Comment on above: Performed By: #### 1 9123-9 #### BEVERLEY Poe ([id number]) [facility] ([facility]) [address] [place] [address] MCHC (RBC) [Mass/Vol] 29.4 g/dL Low 32.0-36.0 [facility] Comment on above: Performed By: #### 1 9123-9 #### BEVERLEY Poe ([id number]) [facility] ([facility]) [address] [place] [address] MCV (RBC) [Entitic vol] 103 fL High 80-100 [facility] Comment on above: Performed By: #### 1 9123-9 #### BEVERLEY Poe ([id number]) [facility] ([facility]) [address] [place] [address] 86331 Monocytes (Bld) [#/Vol] 0.23 x10*3/uL Normal 0.05-0.80 [facility] Comment on above: Performed By: #### 1 9123-9 #### BEVERLEY Poe ([id number]) [facility] ([facility]) [address] [place] [address] 49451 Monocytes/100 WBC (Bld) 5.8 % Normal 2.0-10.0 [facility] Comment on above: Performed By: #### 1 9123-9 #### BEVERLEY Poe ([id number]) [facility] ([facility]) [address] [place] [address] 30509 Neutrophils (Bld) [#/Vol] 3.04 x10*3/uL Normal 1.60-5.50 [facility] Comment on above: Result Comment: Perc ent differential counts (%) should be interpreted in the context of the absolute cell counts (cells/uL). Performed By: #### 1 9123-9 #### BEVERLEY Poe ([id number]) [facility] ([facility]) [address] [place] [address] Neutrophils/100 WBC (Bld) 76.1 % Normal 40.0-80.0 [facility] Comment on above: Performed By: #### 1 9123-9 #### BEVERLEY Poe ([id number]) [facility] ([facility]) [address] [place] [address] Nucleated RBC/100 WBC (Bld) [Ratio] 0.0 /100 WBCs Normal 0.0-0.0 [facility] Comment on above: Performed By: #### 1 9123-9 #### BEVERLEY Poe ([id number]) [facility] ([facility]) [address] [place] [address] 98466 Platelets (Bld) [#/Vol] 107 x10*3/uL Low 150-450 [facility] Comment on above: Performed By: #### 1 9123-9 #### BEVERLEY Poe ([id number]) [facility] ([facility]) [address] [place] [address] 36249 RBC (Bld) [#/Vol] 3.15 x10*6/uL Low 4.00-5.20 [facility] Comment on above: Performed By: #### 1 9123-9 #### BEVERLEY Poe ([id number]) [facility] ([facility]) [address] [place] [address] 33247 WBC (Bld) [#/Vol] 4.0 x10*3/uL Low 4.4-11.3 [facility] Comment on above: Performed By: #### 1 9123-9 #### BEVERLEY Poe ([id number]) [facility] ([facility]) [address] [place] [address] 33986 Comprehensive metabolic 2000 panelon 10-28-2023 Albumin BCP dye [Mass/Vol] 3.6 g/dL Normal 3.4-5.0 [facility] Comment on above: Performed By: #### 1 9123-9 #### BEVERLEY Poe ([id number]) [facility] ([facility]) [address] [place] [address] 46931 ALP [Catalytic activity/Vol] 66 U/L Normal 33-136 [facility] Comment on above: Performed By: #### 1 9123-9 #### BEVERLEY Poe ([id number]) [facility] ([facility]) [address] [place] [address] 55863 ALT With P-5'-P [Catalytic activity/Vol] 18 U/L Normal 7-45 [facility] Comment on above: Result Comment: Ирина ents treated with Sulfasalazine may generate falsely decreased results for ALT. Performed By: #### 1 9123-9 #### BEVERLEY Poe ([id number]) [facility] ([facility]) [address] [place] [address] Anion gap [Moles/Vol] 9 mmol/L Low 10-20 [facility] Comment on above: Performed By: #### 1 9123-9 #### BEVERLEY Poe ([id number]) [facility] ([facility]) [address] [place] [address] 76346 AST With P-5'-P [Catalytic activity/Vol] 16 U/L Normal 9-39 [facility] Comment on above: Performed By: #### 1 9123-9 #### BEVERLEY Poe ([id number]) [facility] ([facility]) [address] [place] [address] 26746 Bilirubin [Mass/Vol] 0.6 mg/dL Normal 0.0-1.2 [facility] Comment on above: Performed By: #### 1 9123-9 #### BEVERLEY Poe ([id number]) [facility] ([facility]) [address] [place] [address] 46471 Calcium [Mass/Vol] 9.4 mg/dL Normal 8.6-10.6 [facility] Comment on above: Performed By: #### 1 9123-9 #### BEVERLEY Poe ([id number]) [facility] ([facility]) [address] [place] [address] 83746 Chloride [Moles/Vol] 100 mmol/L Normal 98-107 [facility] Comment on above: Performed By: #### 1 9123-9 #### BEVERLEY Poe ([id number]) [facility] ([facility]) [address] [place] [address] 18289 CO2 [Moles/Vol] 43 mmol/L Critically high 21-32 [facility] Comment on above: Performed By: #### 1 9123-9 #### BEVERLEY Poe ([id number]) [facility] ([facility]) [address] [place] [address] Creatinine [Mass/Vol] 0.62 mg/dL Normal 0.50-1.05 [facility] Comment on above: Performed By: #### 1 9123-9 #### BEVERLEY Poe ([id number]) [facility] ([facility]) [address] [place] [address] GFR/1.73 sq M.predicted MDRD (S/P/Bld) [Vol rate/Area] mL/min/{1.73_m2} Normal >60 [facility] Comment on above: Result Comment: Calc ulations of estimated GFR are performed using the 2020 CKD-EPI Study Refit equation without the race variable for the IDMS-Traceable creatinine methods. https://jasn.asnjournals.org/content//ASN.83819 65784 Performed By: #### 1 9123-9 #### BEVERLEY Poe ([id number]) [facility] ([facility]) [address] [place] [address] Glucose [Mass/Vol] 101 mg/dL High 74-99 [facility] Comment on above: Performed By: #### 1 9123-9 #### BEVERLEY Poe ([id number]) [facility] ([facility]) [address] [place] [address] Potassium [Moles/Vol] 4.5 mmol/L Normal 3.5-5.3 [facility] Comment on above: Performed By: #### 1 9123-9 #### BEVERLEY Poe ([id number]) [facility] ([facility]) [address] [place] [address] Protein [Mass/Vol] 7.0 g/dL Normal 6.4-8.2 [facility] Comment on above: Performed By: #### 1 9123-9 #### BEVERLEY Poe ([id number]) [facility] ([facility]) [address] [place] [address] 49929 Sodium [Moles/Vol] 147 mmol/L High 136-145 [facility] Comment on above: Performed By: #### 1 9123-9 #### BEVERLEY Poe ([id number]) [facility] ([facility]) [address] [place] [address] 62557 Urea nitrogen [Mass/Vol] 19 mg/dL Normal 6-23 [facility] Comment on above: Performed By: #### 1 9123-9 #### BEVERLEY Poe ([id number]) [facility] ([facility]) [address] [place] [address] 37906 ECG 12-LEADon 10-28-2023 ECG 12-LEAD Ventricular Rate 76 Atrial Rate 76 P-R Interval 156 QRS Duration 132 Q-T Interval 428 QTC Calculation(Bazett) 481 P [place] 57 R [place] -49 T [place] 51 QRS Count 12 Q Onset 210 [...] [place] ([id number]) on 11/11/2023 6:42:46 PM Normal [facility] Prealbuminon 10-28-2023 Prealbumin [Mass/Vol] 18.4 mg/dL Normal 18.0-40.0 [facility] Comment on above: Performed By: #### 1 9123-9 #### BEVERLEY Poe ([id number]) [facility] ([facility]) [address] [place] [address] 86947 Staphylococcus aureus.methic illin resistant isolateon 10-28-2023 MRSA isol Org specific cx Ql (Nose) Test: Staphylococcus aureus/MRSA colonization, Culture Specimen Source: Anterior Nares Specimen Type: Swab Specimen Date: 10/28/2023 9:56 AM Result Date: 10/29/2023 1:28 PM Result Status: Final result Abnormal: No Resulting Lab: [facility] [address] [place], [place] [id number] CULTURE No Staphylococcus aureus isolated [facility] Comment on above: Performed By: #### 1 9123-9 #### BEVERLEY Poe ([id number]) [facility] ([facility]) [address] [place] [address] Basophil percentageOrdered B y: Jonathan Dillard on 10-11-2023 Bilirubin [Mass/Vol] 0.30 mg/dL 0.20-1.00 [facility] Comment on above: For patients on eltr ombopag therapy, use of Dimension Max TBIL is not recommended. Chloride [Moles/Vol] 101 mmol/L 98-107 [facility] Glucose [Mass/Vol] 102 mg/dL 74-106 [facility] Comment on above: Fasting Glucose resu lt from 100 to 125 mg/dL suggests IMPAIRED HOMEOSTASIS per A.D.A. criteria. Potassium [Moles/Vol] 3.7 mmol/L 3.5-5.1 [facility] Protein [Mass/Vol] 6.4 g/dL 6.4-8.2 [facility] Sodium [Moles/Vol] 144 mmol/L 136-145 [facility] WBC (Bld) [#/Vol] 3.3 10*3/uL 4.4-11.0 [facility] Blood erythrocytes count (nu mber/volume)Ordered By: Jonathan Dillard on 10-11-2023 RBC (Bld) [#/Vol] 2.77 10*6/uL 4.2-5.4 [facility] Blood hemoglobin measurement (mass/volume)Ordered By: Jonathan Dillard on 10-11-2023 Hemoglobin (Bld) [Mass/Vol] 8.2 g/dL 12.0-15.0 [facility] Blood platelet mean volumeOr dered By: Jonathan Dillard on 10-11-2023 Platelet mean volume (Bld) [Entitic vol] 8.8 fL 6.2-12.0 [facility] Determination of erythrocyte mean corpuscular volume (MCV)Ordered By: Jonathan Dillard on 10-11-2023 MCV (RBC) [Entitic vol] 105.8 fL 81-99 [facility] Hematocrit Auto (Bld) [Volum e fraction]Ordered By: Jonathan Dillard on 10-11-2023 Hematocrit (Bld) [Volume fraction] 29.3 % 37-47 [facility] - Chemistry and C hemistry - challengeOrdered By: Jonathan Dillard on 10-11-2023 ALP [Catalytic activity/Vol] 51 U/L 45-117 [facility] ALT [Catalytic activity/Vol] 18 U/L 13-56 [facility] CO2 [Moles/Vol] 41.0 mmol/L 21.0-32.0 [facility] Globulin (S) [Mass/Vol] 4.1 g/dL 2.2-4.2 [facility] Urea nitrogen/Creatinine [Mass ratio] 36.1 mg/mg 10-20 [facility] - Hematology and Cell countsOrdered By: Jonathan Dillard on 10-11-2023 Erythrocyte distribution width (RBC) [Entitic vol] 54.5 fL 35.1-43.9 [facility] Erythrocyte distribution width (RBC) [Ratio] 14.0 % 11.6-14.6 [facility] MCH (RBC) [Entitic mass] 29.6 pg 27.0-32.0 [facility] MCHC Auto (RBC) [Mass/Vol]Or dered By: Jonathan Dillard on 10-11-2023 MCHC (RBC) [Mass/Vol] 28.0 g/dL 32-36 [facility] No Panel InformationOrdered By: Jonathan Dillard on 10-11-2023 Estimated GFR (MDRD) Amer 156 mL/min >60 [facility] Comment on above: GFR Calc Estimated GFR (MDRD) Non-Af Amer 129 mL/min >60 [facility] Comment on above: Non- GFR Calc Platelets bldOrdered By: Mervat Dillard on 10-11-2023 Platelets (Bld) [#/Vol] 116 10*3/uL 150-450 [facility] Serum or plasma albumin celina urement (mass/volume)Ordered By: Jonathan Dillard on 10-11-2023 Albumin [Mass/Vol] 2.3 g/dL 3.2-5.0 [facility] Serum or plasma albumin/glob ulin mass ratioOrdered By: Jonathan Dillard on 10-11-2023 Albumin/Globulin [Mass ratio] 0.6 {ratio} 0.9-2.4 [facility] Serum or plasma calcium celina urement (mass/volume)Ordered By: Jonathan Dillard on 10-11-2023 Calcium [Mass/Vol] 7.8 mg/dL 8.5-10.1 [facility] Serum or plasma creatinine m easurement (mass/volume)Ordered By: Jonathan Dillard on 10-11-2023 Creatinine [Mass/Vol] 0.50 mg/dL 0.55-1.02 [facility] Comment on above: The validity of the calculated GFR & GFRAA in patients over 70 years has not been determined. Clinical correlation is essential. Serum or plasma urea nitroge n measurement (mass/volume)Ordered By: Jonathan Dillard on 10-11-2023 Urea nitrogen [Mass/Vol] 18 mg/dL 7-18 [facility] Thin prep Papanicolaou smear with manual screeningOrdered By: Jonathan Dillard on 10-11-2023 Thin prep Papanicolaou smear with manual screening 14 U/L 15-37 [facility] Thin prep Papanicolaou smear with manual screening 2 5-15 [facility] - Chemistry and C hemistry - challengeOrdered By: Jonathan Dillard on 10-04-2023 Cobalamin (Vitamin B12) [Mass/Vol] 926 pg/mL 211-911 [facility] Basophil percentageOrdered B y: Jonathan Dillard on 10-03-2023 Bilirubin [Mass/Vol] 0.40 mg/dL 0.20-1.00 [facility] Comment on above: For patients on eltr ombopag therapy, use of Dimension Max TBIL is not recommended. Chloride [Moles/Vol] 103 mmol/L 98-107 [facility] Cholesterol [Mass/Vol] 112 mg/dL <200 [facility] Comment on above: <200 mg/dL Desirable 200-240 mg/dL Borderline >240 mg/dL High Risk Glucose [Mass/Vol] 133 mg/dL 74-106 [facility] Comment on above: Fasting Glucose resu lt greater than or equal to 126 mg/dL suggests DIABETES MELLITUS per A.D.A. criteria. Potassium [Moles/Vol] 3.8 mmol/L 3.5-5.1 [facility] Protein [Mass/Vol] 6.2 g/dL 6.4-8.2 [facility] Sodium [Moles/Vol] 144 mmol/L 136-145 [facility] Triglyceride [Mass/Vol] 156 mg/dL <199 [facility] Comment on above: The drugs N-Acetylcy steine and Metamizole may falsely depress this assay.Serum Triglycerides Reference Interval Normal <150 mg/dL Borderline high 150 - 199 mg/dL High 200 - 499 mg/dL Very High > or = 500 mg/dL WBC (Bld) [#/Vol] 3.6 10*3/uL 4.4-11.0 [facility] Blood erythrocytes count (nu mber/volume)Ordered By: Jonathan Dillard on 10-03-2023 RBC (Bld) [#/Vol] 2.77 10*6/uL 4.2-5.4 [facility] Blood hemoglobin measurement (mass/volume)Ordered By: Jonathan Dillard on 10-03-2023 Hemoglobin (Bld) [Mass/Vol] 8.2 g/dL 12.0-15.0 [facility] Blood platelet mean volumeOr dered By: Jonathan Dillard on 10-03-2023 Platelet mean volume (Bld) [Entitic vol] 9.3 fL 6.2-12.0 [facility] Determination of erythrocyte mean corpuscular volume (MCV)Ordered By: Jonathan Dillard on 10-03-2023 MCV (RBC) [Entitic vol] 104.0 fL 81-99 [facility] Hematocrit Auto (Bld) [Volum e fraction]Ordered By: Jonathan Dillard on 10-03-2023 Hematocrit (Bld) [Volume fraction] 28.8 % 37-47 [facility] - Chemistry and C hemistry - challengeOrdered By: Jonathan Dillard on 10-03-2023 ALP [Catalytic activity/Vol] 42 U/L 45-117 [facility] ALT [Catalytic activity/Vol] 16 U/L 13-56 [facility] CO2 [Moles/Vol] 40.0 mmol/L 21.0-32.0 [facility] Globulin (S) [Mass/Vol] 3.9 g/dL 2.2-4.2 [facility] Urea nitrogen/Creatinine [Mass ratio] 35.6 mg/mg 10-20 [facility] - Hematology and Cell countsOrdered By: Jonathan Dillard on 10-03-2023 Erythrocyte distribution width (RBC) [Entitic vol] 54.0 fL 35.1-43.9 [facility] Erythrocyte distribution width (RBC) [Ratio] 14.2 % 11.6-14.6 [facility] MCH (RBC) [Entitic mass] 29.6 pg 27.0-32.0 [facility] MCHC Auto (RBC) [Mass/Vol]Or dered By: Jonathan Dillard on 10-03-2023 MCHC (RBC) [Mass/Vol] 28.5 g/dL 32-36 [facility] No Panel InformationOrdered By: Jonathan Dillard on 10-03-2023 Estimated GFR (MDRD) Amer 153 mL/min >60 [facility] Comment on above: GFR Calc Estimated GFR (MDRD) Non-Af Amer 127 mL/min >60 [facility] Comment on above: Non- GFR Calc Platelets bldOrdered By: Mervat Dillard on 10-03-2023 Platelets (Bld) [#/Vol] 104 10*3/uL 150-450 [facility] Serum or plasma albumin celina urement (mass/volume)Ordered By: Jonathan Dillard on 10-03-2023 Albumin [Mass/Vol] 2.3 g/dL 3.2-5.0 [facility] Serum or plasma albumin/glob ulin mass ratioOrdered By: Jonathan Dillard on 10-03-2023 Albumin/Globulin [Mass ratio] 0.6 {ratio} 0.9-2.4 [facility] Serum or plasma calcium celina urement (mass/volume)Ordered By: Jonathan Dilalrd on 10-03-2023 Calcium [Mass/Vol] 8.4 mg/dL 8.5-10.1 [facility] Serum or plasma cholesterol in HDL measurement (mass/volume)Ordered By: Jonathan Dillard on 10-03-2023 Cholesterol in HDL [Mass/Vol] 41 mg/dL >40 [facility] Comment on above: The drugs N-Acetylcy steine and Metamizole may falsely depress this assay. Reference Range HDL <40 mg/dL Low HDL Cholesterol HDL >or= 60 mg/dL High HDL Cholesterol Serum or plasma cholesterol in VLDL measurement (mass/volume)Ordered By: Jonathan Dillard on 10-03-2023 Cholesterol in VLDL [Mass/Vol] 31 mg/dL 5-40 [facility] Serum or plasma creatinine m easurement (mass/volume)Ordered By: Jonathan Dillard on 10-03-2023 Creatinine [Mass/Vol] 0.51 mg/dL 0.55-1.02 [facility] Comment on above: The validity of the calculated GFR & GFRAA in patients over 70 years has not been determined. Clinical correlation is essential. Serum or plasma low density lipoprotein (LDL) cholesterol measurement (mass/volume)Ordered By: Jonathan Dillard on 10-03-2023 Cholesterol in LDL [Mass/Vol] 40 mg/dL 0-130 [facility] Serum or plasma urea nitroge n measurement (mass/volume)Ordered By: Jonathan Dillard on 10-03-2023 Urea nitrogen [Mass/Vol] 18 mg/dL 7-18 [facility] Thin prep Papanicolaou smear with manual screeningOrdered By: Jonathan Dillard on 10-03-2023 Thin prep Papanicolaou smear with manual screening 15 U/L 15-37 [facility] Thin prep Papanicolaou smear with manual screening 1 5-15 [facility] Whole blood hemoglobin A1c/t otal hemoglobin ratio (mass fraction)Ordered By: Jonathan Dillard on 10-03-2023 HbA1c (Bld) [Mass fraction] % 3.8-5.6 [facility] Comment on above: Normal < 5.7 % Predi abetic 5.7 - 6.4 % Diabetic >or= 6.5 % Please note range changes. CBC panel Auto (Bld)on 09-28 Erythrocyte distribution width (RBC) [Ratio] 14.0 % 11.5 - 14.5 % [facility] Hematocrit (Bld) [Volume fraction] 28.8 % Low 36.0 - 46.0 % [facility] Hemoglobin (Bld) [Mass/Vol] 8.4 g/dL Low 12.0 - 16.0 g/dL [facility] Interpretation and review of laboratory results Abnormal [facility] MCH (RBC) [Entitic mass] 30.1 pg 26.0 - 34.0 pg [facility] MCHC (RBC) [Mass/Vol] 29.2 g/dL Low 32.0 - 36.0 g/dL [facility] MCV (RBC) [Entitic vol] 103 fL High 80 - 100 fL [facility] Nucleated RBC/100 WBC (Bld) [Ratio] 0.0 % [facility] Platelets (Bld) [#/Vol] 113 10*3/uL Low [facility] RBC (Bld) [#/Vol] 2.79 10*6/uL [facility] WBC (Bld) [#/Vol] 3.5 10*3/uL [facility] Erythrocyte distribution width (RBC) [Ratio] 14.0 % Normal 11.5-14.5 [facility] Comment on above: Performed By: #### 1 9123-9 #### BEVERLEY Poe ([id number]) [facility] ([facility]) [address] [place] [address] 36387 Hematocrit (Bld) [Volume fraction] 28.8 % Low 36.0-46.0 [facility] Comment on above: Performed By: #### 1 9123-9 #### BEVERLEY Poe ([id number]) [facility] ([facility]) [address] [place] [address] 18121 Hemoglobin (Bld) [Mass/Vol] 8.4 g/dL Low 12.0-16.0 [facility] Comment on above: Performed By: #### 1 9123-9 #### BEVERLEY Poe ([id number]) [facility] ([facility]) [id number] [place] [address] 31561 MCH (RBC) [Entitic mass] 30.1 pg Normal 26.0-34.0 [facility] Comment on above: Performed By: #### 1 9123-9 #### BEVERLEY Poe ([id number]) [facility] ([facility]) [address] [place] [address] MCHC (RBC) [Mass/Vol] 29.2 g/dL Low 32.0-36.0 [facility] Comment on above: Performed By: #### 1 9123-9 #### BEVERLEY Poe ([id number]) [facility] ([facility]) [address] [place] [address] MCV (RBC) [Entitic vol] 103 fL High 80-100 [facility] Comment on above: Performed By: #### 1 9123-9 #### BEVERLEY Poe ([id number]) [facility] ([facility]) [address] [place] [address] Nucleated RBC/100 WBC (Bld) [Ratio] 0.0 /100 WBCs Normal 0.0-0.0 [facility] Comment on above: Performed By: #### 1 9123-9 #### BEVERLEY Poe ([id number]) [facility] ([facility]) [address] [place] [address] Platelets (Bld) [#/Vol] 113 x10*3/uL Low 150-450 [facility] Comment on above: Performed By: #### 1 9123-9 #### BEVERLEY Poe ([id number]) [facility] ([facility]) [address] [place] [address] RBC (Bld) [#/Vol] 2.79 x10*6/uL Low 4.00-5.20 [facility] Comment on above: Performed By: #### 1 9123-9 #### BEVERLEY Poe ([id number]) [facility] ([facility]) [address] [place] [address] WBC (Bld) [#/Vol] 3.5 x10*3/uL Low 4.4-11.3 [facility] Comment on above: Performed By: #### 1 9123-9 #### BEVERLEY Poe ([id number]) [facility] ([facility]) [address] [place] [address] 32355 CTA Heart and Coronary arter ies WO and W contrast Jack 09-28-2023 U[facility] MMODAL UH MMODAL [facility] Work Phone: CTA Heart and Coronary arter ies WO and W contrast IVOrdered By: Yair Pham on 09-28-2023 [facility] Work Phone: Magnesiumon 09-28-2023 Magnesium [Mass/Vol] 2.13 mg/dL Normal 1.60-2.40 [facility] Comment on above: Performed By: #### 1 9123-9 #### BEVERLEY Poe ([id number]) [facility] ([facility]) [address] [place] [address] 94441 Renal function 2000 panelon 09-28-2023 Albumin BCP dye [Mass/Vol] 2.9 g/dL Low 3.4-5.0 [facility] Comment on above: Performed By: #### 1 9123-9 #### BEVERLEY Poe ([id number]) [facility] ([facility]) [address] [place] [address] 13466 Anion gap [Moles/Vol] 11 mmol/L Normal 10-20 [facility] Comment on above: Performed By: #### 1 9123-9 #### BEVERLEY Poe ([id number]) [facility] ([facility]) [address] [place] [address] 07388 Calcium [Mass/Vol] 8.9 mg/dL Normal 8.6-10.6 [facility] Comment on above: Performed By: #### 1 9123-9 #### BEVERLEY Poe ([id number]) [facility] ([facility]) [address] [place] [address] 25156 Chloride [Moles/Vol] 100 mmol/L Normal 98-107 [facility] Comment on above: Performed By: #### 1 9123-9 #### BEVERLEY Poe ([id number]) [facility] ([facility]) [address] [place] [address] CO2 [Moles/Vol] 40 mmol/L Critically high 21-32 [facility] Comment on above: Performed By: #### 1 9123-9 #### BEVERLEY Poe ([id number]) [facility] ([facility]) [address] [place] [address] 52073 Creatinine [Mass/Vol] 0.44 mg/dL Low 0.50-1.05 [facility] Comment on above: Performed By: #### 1 9123-9 #### BEVERLEY Poe ([id number]) [facility] ([facility]) [address] [place] [address] 73354 GFR/1.73 sq M.predicted MDRD (S/P/Bld) [Vol rate/Area] mL/min/{1.73_m2} Normal >60 [facility] Comment on above: Result Comment: Calc ulations of estimated GFR are performed using the 2020 CKD-EPI Study Refit equation without the race variable for the IDMS-Traceable creatinine methods. https://jasn.asnjournals.org/content/early//ASN.31695 21760 Performed By: #### 1 9123-9 #### BEVERLEY Poe ([id number]) [facility] ([facility]) [address] [place] [address] Glucose [Mass/Vol] 143 mg/dL High 74-99 [facility] Comment on above: Performed By: #### 1 9123-9 #### BEVERLEY Poe ([id number]) [facility] ([facility]) [address] [place] [address] 99129 Phosphate [Mass/Vol] 2.8 mg/dL Normal 2.5-4.9 [facility] Comment on above: Result Comment: The performance characteristics of phosphorus testing in heparinized plasma have been validated by the individual laboratory site where testing is performed. Testing on heparinized plasma is not approved by the FDA; however, such approval is not necessary. Performed By: #### 1 9123-9 #### BEVERLEY Poe ([id number]) [facility] ([facility]) [address] [place] [address] Potassium [Moles/Vol] 3.8 mmol/L Normal 3.5-5.3 [facility] Comment on above: Performed By: #### 1 9123-9 #### BEVERLEY Poe ([id number]) [facility] ([facility]) [address] [place] [address] Sodium [Moles/Vol] 147 mmol/L High 136-145 [facility] Comment on above: Performed By: #### 1 9123-9 #### BEVERLEY Poe ([id number]) [facility] ([facility]) [address] [place] [address] 40338 Urea nitrogen [Mass/Vol] 11 mg/dL Normal 6-23 [facility] Comment on above: Performed By: #### 1 9123-9 #### BEVERLEY Poe ([id number]) [facility] ([facility]) [address] [place] [address] 17126 SARS coronavirus 2 RNAon SARS-CoV-2 (COVID-19) RNA ISA+probe Ql (Resp) Not detected Normal Not Detected [facility] Comment on above: Order Comment: This assay [...] and has been validated for use at [facility]. Negative results do not preclude COVID-19 infections and should not be used as the sole basis for diagnosis, treatment, or other management decisions. Performed By: #### 1 9123-9 #### BEVERLEY Poe ([id number]) [facility] ([facility]) [address] [place] [address] 88008 SARS-CoV-2 (COVID-19) RNA NA A+probe Ql (Resp)on 09-28-2023 Interpretation and review of laboratory results Normal [facility] SARS-CoV-2 RT PCRon 09-28-20 SARS-CoV-2 (COVID-19) RNA ISA+probe Ql (Resp) Not detected Not Detected [facility] CBC panel Auto (Bld)on 09-27 Erythrocyte distribution width (RBC) [Ratio] 14.3 % 11.5 - 14.5 % [facility] Hematocrit (Bld) [Volume fraction] 28.0 % Low 36.0 - 46.0 % [facility] Hemoglobin (Bld) [Mass/Vol] 8.0 g/dL Low 12.0 - 16.0 g/dL [facility] Interpretation and review of laboratory results Abnormal [facility] MCH (RBC) [Entitic mass] 29.7 pg 26.0 - 34.0 pg [facility] MCHC (RBC) [Mass/Vol] 28.6 g/dL Low 32.0 - 36.0 g/dL [facility] MCV (RBC) [Entitic vol] 104 fL High 80 - 100 fL [facility] Nucleated RBC/100 WBC (Bld) [Ratio] 0.0 % [facility] Platelets (Bld) [#/Vol] 115 10*3/uL [facility] RBC (Bld) [#/Vol] 2.69 10*6/uL [facility] WBC (Bld) [#/Vol] 3.2 10*3/uL [facility] Erythrocyte distribution width (RBC) [Ratio] 14.3 % Normal 11.5-14.5 [facility] Comment on above: Performed By: #### 2 341-6 #### BEVERLEY Poe ([id number]) [facility] ([facility]) [address] [place] [address] Hematocrit (Bld) [Volume fraction] 28.0 % Low 36.0-46.0 [facility] Comment on above: Performed By: #### 2 341-6 #### BEVERLEY Poe ([id number]) [facility] ([facility]) [address] [place] [address] Hemoglobin (Bld) [Mass/Vol] 8.0 g/dL Low 12.0-16.0 [facility] Comment on above: Performed By: #### 2 341-6 #### BEVERLEY Poe ([id number]) [facility] ([facility]) [address] [place] [address] 92902 MCH (RBC) [Entitic mass] 29.7 pg Normal 26.0-34.0 [facility] Comment on above: Performed By: #### 2 341-6 #### BEVERLEY Poe ([id number]) [facility] ([facility]) [address] [place] [address] 61027 MCHC (RBC) [Mass/Vol] 28.6 g/dL Low 32.0-36.0 [facility] Comment on above: Performed By: #### 2 341-6 #### BEVERLEY Poe ([id number]) [facility] ([facility]) [address] [place] [address] 88666 MCV (RBC) [Entitic vol] 104 fL High 80-100 [facility] Comment on above: Performed By: #### 2 341-6 #### BEVERLEY Poe ([id number]) [facility] ([facility]) [address] [place] [address] 75920 Nucleated RBC/100 WBC (Bld) [Ratio] 0.0 /100 WBCs Normal 0.0-0.0 [facility] Comment on above: Performed By: #### 2 341-6 #### BEVERLEY Poe ([id number]) [facility] ([facility]) [address] [place] [address] 01044 Platelets (Bld) [#/Vol] 115 x10*3/uL Low 150-450 [facility] Comment on above: Performed By: #### 2 341-6 #### BEVERLEY Poe ([id number]) [facility] ([facility]) [address] [place] [address] 75995 RBC (Bld) [#/Vol] 2.69 x10*6/uL Low 4.00-5.20 [facility] Comment on above: Performed By: #### 2 341-6 #### BEVERLEY Poe ([id number]) [facility] ([facility]) [address] [place] [address] 33869 WBC (Bld) [#/Vol] 3.2 x10*3/uL Low 4.4-11.3 [facility] Comment on above: Performed By: #### 2 341-6 #### BEVERLEY Poe ([id number]) [facility] ([facility]) [address] [place] [address] 42086 Cobalaminson 09-27-2023 Cobalamin (Vitamin B12) [Mass/Vol] 411 pg/mL Normal 211-911 [facility] Comment on above: Performed By: #### 1 9123-9 #### BEVERLEY Poe ([id number]) [facility] ([facility]) [address] [place] [address] 93930 Electrocardiogram, 12-lead P RN ACS symptomsOrdered By: Simon Piedra on 09-27-2023 Atrial Rate 104 BPM [facility] Work Phone: [phone] [address] [place] 67 degrees [facility] Work Phone: [phone] P Offset 193 ms [facility] Work Phone: [phone] P Onset 137 ms [facility] Work Phone: [phone] SC Interval 150 ms [facility] Work Phone: [phone] Q Onset 212 ms [facility] Work Phone: [phone] QRS Count 17 beats [facility] Work Phone: [phone] QRS Duration 136 ms [facility] Work Phone: [phone] [facility] Work Phone: [phone] QTC Calculation(Bazett) 462 [facility] Work Phone: [phone] [facility] Work Phone: [phone] R [place] -54 degrees [facility] Work Phone: [phone] T [place] 70 degrees [facility] Work Phone: [phone] [facility] Work Phone: [phone] Ventricular Rate 104 BPM [facility] Work Phone: [phone] [facility] Work Phone: [phone] Electrocardiogram, 12-lead P RN ACS symptomson 09-27-2023 [facility] Work Phone: Folateon 09-27-2023 Folate [Mass/Vol] 16.2 ng/mL Normal >5.0 [facility] Comment on above: Order Comment: Low < 3.4Borderline 3.4-5.0Normal >5.0Patients receiving more than 5 mg/day of biotin may have interference in test results. A sample should be taken no sooner than eight hours after previous dose. Contact the testing laboratory for additional information. Performed By: #### 1 9123-9 #### BEVERLEY Poe ([id number]) [facility] ([facility]) [address] [place] [address] 99902 Magnesiumon 09-27-2023 Magnesium [Mass/Vol] 2.13 mg/dL 1.60 - 2.40 mg/dL [facility] Magnesium [Mass/Vol] 2.13 mg/dL Normal 1.60-2.40 [facility] Comment on above: Performed By: #### 2 341-6 #### BEVERLEY Poe ([id number]) [facility] ([facility]) [address] [place] [address] 29917 Magnesium [Mass/Vol]on 09-27 Interpretation and review of laboratory results Normal [facility] No Panel Informationon 09-27 [facility] Renal function 2000 panelon 09-27-2023 Albumin BCP dye [Mass/Vol] 2.8 g/dL Low 3.4 - 5.0 g/dL [facility] Anion gap [Moles/Vol] 7 mmol/L Low 10 - 2 0 mmol/L [facility] Calcium [Mass/Vol] 8.7 mg/dL 8.6 - 10. 6 mg/dL [facility] Chloride [Moles/Vol] 102 mmol/L 98 - 10 7 mmol/L [facility] CO2 [Moles/Vol] 42 mmol/L Critically high 21 - 32 mmol/L [facility] Creatinine [Mass/Vol] 0.41 mg/dL Low 0.50 - 1.05 mg/dL [facility] GFR/1.73 sq M.predicted MDRD (S/P/Bld) [Vol rate/Area] - PINF [facility] Glucose [Mass/Vol] 142 mg/dL High 74 - 99 mg/dL [facility] Interpretation and review of laboratory results Abnormal [facility] Phosphate [Mass/Vol] 3.2 mg/dL 2.5 - 4 .9 mg/dL [facility] Potassium [Moles/Vol] 3.9 mmol/L 3.5 - 5.3 mmol/L [facility] Sodium [Moles/Vol] 147 mmol/L High 136 - 145 mmol/L [facility] Urea nitrogen [Mass/Vol] 12 mg/dL 6 - 23 mg/dL [facility] Albumin BCP dye [Mass/Vol] 2.8 g/dL Low 3.4-5.0 [facility] Comment on above: Performed By: #### 2 341-6 #### BEVERLEY Poe ([id number]) [facility] ([facility]) [address] [place] [address] 32539 Anion gap [Moles/Vol] 7 mmol/L Low 10-20 [facility] Comment on above: Performed By: #### 2 341-6 #### BEVERLEY Poe ([id number]) [facility] ([facility]) [address] [place] [address] 34756 Calcium [Mass/Vol] 8.7 mg/dL Normal 8.6-10.6 [facility] Comment on above: Performed By: #### 2 341-6 #### BEVERLEY Poe ([id number]) [facility] ([facility]) [address] [place] [address] Chloride [Moles/Vol] 102 mmol/L Normal 98-107 [facility] Comment on above: Performed By: #### 2 341-6 #### BEVERLEY Poe ([id number]) [facility] ([facility]) [address] [place] [address] CO2 [Moles/Vol] 42 mmol/L Critically high 21-32 [facility] Comment on above: Performed By: #### 2 341-6 #### BEVERLEY Poe ([id number]) [facility] ([facility]) [address] [place] [address] Creatinine [Mass/Vol] 0.41 mg/dL Low 0.50-1.05 [facility] Comment on above: Performed By: #### 2 341-6 #### BEVERLEY Poe ([id number]) [facility] ([facility]) [address] [place] [address] GFR/1.73 sq M.predicted MDRD (S/P/Bld) [Vol rate/Area] mL/min/{1.73_m2} Normal >60 [facility] Comment on above: Result Comment: Calc ulations of estimated GFR are performed using the 2020 CKD-EPI Study Refit equation without the race variable for the IDMS-Traceable creatinine methods. https://jasn.asnjournals.org/content/early/ASN.80487 88737 Performed By: #### 2 341-6 #### BEVERLEY Poe ([id number]) [facility] ([facility]) [address] [place] [address] Glucose [Mass/Vol] 142 mg/dL High 74-99 [facility] Comment on above: Performed By: #### 2 341-6 #### BEVERLEY Poe ([id number]) [facility] ([facility]) [address] [place] [address] 88814 Phosphate [Mass/Vol] 3.2 mg/dL Normal 2.5-4.9 [facility] Comment on above: Result Comment: The performance characteristics of phosphorus testing in heparinized plasma have been validated by the individual laboratory site where testing is performed. Testing on heparinized plasma is not approved by the FDA; however, such approval is not necessary. Performed By: #### 2 341-6 #### BEVERLEY Poe ([id number]) [facility] ([facility]) [address] [place] [address] 11972 Potassium [Moles/Vol] 3.9 mmol/L Normal 3.5-5.3 [facility] Comment on above: Performed By: #### 2 341-6 #### BEVERLEY Poe ([id number]) [facility] ([facility]) [address] [place] [address] 38139 Sodium [Moles/Vol] 147 mmol/L High 136-145 [facility] Comment on above: Performed By: #### 2 341-6 #### BEVERLEY Poe ([id number]) [facility] ([facility]) [address] [place] [address] 22227 Urea nitrogen [Mass/Vol] 12 mg/dL Normal 6-23 [facility] Comment on above: Performed By: #### 2 341-6 #### BEVERLEY Poe ([id number]) [facility] ([facility]) [address] [place] [address] 97894 SARS coronavirus 2 RNAon SARS-CoV-2 (COVID-19) RNA ISA+probe Ql (Resp) Not detected Normal Not Detected [facility] Comment on above: Order Comment: This assay [...] and has been validated for use at [facility]. Negative results do not preclude COVID-19 infections and should not be used as the sole basis for diagnosis, treatment, or other management decisions. Performed By: #### 2 341-6 #### BEVERLEY Poe ([id number]) [facility] ([facility]) [address] [place] [address] SARS-CoV-2 (COVID-19) RNA NA A+probe Ql (Resp)on 09-27-2023 Interpretation and review of laboratory results Normal [facility] SARS-CoV-2 RT PCRon 09-27-20 SARS-CoV-2 (COVID-19) RNA ISA+probe Ql (Resp) Not detected Not Detected [facility] CBC panel Auto (Bld)on 09-26 Erythrocyte distribution width (RBC) [Ratio] 14.3 % 11.5 - 14.5 % [facility] Hematocrit (Bld) [Volume fraction] 26.6 % Low 36.0 - 46.0 % [facility] Hemoglobin (Bld) [Mass/Vol] 7.6 g/dL Low 12.0 - 16.0 g/dL [facility] Interpretation and review of laboratory results Abnormal [facility] MCH (RBC) [Entitic mass] 29.9 pg 26.0 - 34.0 pg [facility] MCHC (RBC) [Mass/Vol] 28.6 g/dL Low 32.0 - 36.0 g/dL [facility] MCV (RBC) [Entitic vol] 105 fL High 80 - 100 fL [facility] Nucleated RBC/100 WBC (Bld) [Ratio] 0.0 % [facility] Platelets (Bld) [#/Vol] 107 10*3/uL Low [facility] RBC (Bld) [#/Vol] 2.54 10*6/uL Low [facility] WBC (Bld) [#/Vol] 4.1 10*3/uL [facility] Erythrocyte distribution width (RBC) [Ratio] 14.3 % Normal 11.5-14.5 [facility] Comment on above: Performed By: #### 2 341-6 #### BEVERLEY Poe ([id number]) [facility] ([facility]) [address] [place] [address] 92377 Hematocrit (Bld) [Volume fraction] 26.6 % Low 36.0-46.0 [facility] Comment on above: Performed By: #### 2 341-6 #### BEVERLEY Poe ([id number]) [facility] ([facility]) [address] [place] [address] 97554 Hemoglobin (Bld) [Mass/Vol] 7.6 g/dL Low 12.0-16.0 [facility] Comment on above: Performed By: #### 2 341-6 #### BEVERLEY Poe ([id number]) [facility] ([facility]) [address] [place] [address] 64796 MCH (RBC) [Entitic mass] 29.9 pg Normal 26.0-34.0 [facility] Comment on above: Performed By: #### 2 341-6 #### BEVERLEY Poe ([id number]) [facility] ([facility]) [address] [place] [address] 32972 MCHC (RBC) [Mass/Vol] 28.6 g/dL Low 32.0-36.0 [facility] Comment on above: Performed By: #### 2 341-6 #### BEVERLEY Poe ([id number]) [facility] ([facility]) [address] [place] [address] 75590 MCV (RBC) [Entitic vol] 105 fL High 80-100 [facility] Comment on above: Performed By: #### 2 341-6 #### BEVERLEY Poe ([id number]) [facility] ([facility]) [address] [place] [address] 33934 Nucleated RBC/100 WBC (Bld) [Ratio] 0.0 /100 WBCs Normal 0.0-0.0 [facility] Comment on above: Performed By: #### 2 341-6 #### BEVERLEY Poe ([id number]) [facility] ([facility]) [address] [place] [address] 45245 Platelets (Bld) [#/Vol] 107 x10*3/uL Low 150-450 [facility] Comment on above: Performed By: #### 2 341-6 #### BEVERLEY Poe ([id number]) [facility] ([facility]) [address] [place] [address] 08695 RBC (Bld) [#/Vol] 2.54 x10*6/uL Low 4.00-5.20 [facility] Comment on above: Performed By: #### 2 341-6 #### BEVERLEY Poe ([id number]) [facility] ([facility]) [address] [place] [address] 90100 WBC (Bld) [#/Vol] 4.1 x10*3/uL Low 4.4-11.3 [facility] Comment on above: Performed By: #### 2 341-6 #### BEVERLEY Poe ([id number]) [facility] ([facility]) [address] [place] [address] 27724 CTA Heart and Coronary arter ies WO and W contrast Jack 09-26-2023 Radiology Study observation (narrative) [facility] Work Phone: [phone] ECG 12 LeadOrdered By: Monse Piedra on 09-26-2023 Atrial Rate 96 BPM [facility] Work Phone: [phone] P [place] 61 degrees [facility] Work Phone: [phone] P Offset 197 ms [facility] Work Phone: [phone] P Onset 133 ms [facility] Work Phone: [phone] SC Interval 156 ms [facility] Work Phone: [phone] Q Onset 211 ms [facility] Work Phone: [phone] QRS Count 16 beats [facility] Work Phone: [phone] QRS Duration 136 ms [facility] Work Phone: [phone] QT Interval 380 ms [facility] Work Phone: [phone] QTC Calculation(Bazett) 480 ms [facility] Work Phone: [phone] QTC Fredericia 444 ms [facility] Work Phone: [phone] R [place] -49 degrees [facility] Work Phone: [phone] T [place] 77 degrees [facility] Work Phone: [phone] T Offset 401 ms [facility] Work Phone: [phone] Ventricular Rate 96 BPM [facility] Work Phone: [phone] [facility] Work Phone: [phone] ECG 12 Leadon 09-26-2023 MUSE [facility] Work Phone: Magnesiumon 09-26-2023 Magnesium [Mass/Vol] 2.17 mg/dL 1.60 - 2.40 mg/dL [facility] Magnesium [Mass/Vol] 2.17 mg/dL Normal 1.60-2.40 [facility] Comment on above: Performed By: #### 2 341-6 #### BEVERLEY Poe ([id number]) [facility] ([facility]) [address] [place] [address] Magnesium [Mass/Vol]on 09-26 Interpretation and review of laboratory results Normal [facility] No Panel Informationon 09-26 [facility] Renal function 2000 panelon 09-26-2023 Albumin BCP dye [Mass/Vol] 2.8 g/dL Low 3.4 - 5.0 g/dL [facility] Anion gap [Moles/Vol] mmol/L Low 10 - 2 0 mmol/L [facility] Calcium [Mass/Vol] 8.6 mg/dL 8.6 - 10. 6 mg/dL [facility] Chloride [Moles/Vol] 101 mmol/L 98 - 10 7 mmol/L [facility] CO2 [Moles/Vol] 45 mmol/L Critically high 21 - 32 mmol/L [facility] Creatinine [Mass/Vol] 0.45 mg/dL Low 0.50 - 1.05 mg/dL [facility] GFR/1.73 sq M.predicted MDRD (S/P/Bld) [Vol rate/Area] - PINF [facility] Glucose [Mass/Vol] 111 mg/dL High 74 - 99 mg/dL [facility] Interpretation and review of laboratory results Abnormal [facility] Phosphate [Mass/Vol] 3.2 mg/dL 2.5 - 4 .9 mg/dL [facility] Potassium [Moles/Vol] 3.8 mmol/L 3.5 - 5.3 mmol/L [facility] Sodium [Moles/Vol] 147 mmol/L High 136 - 145 mmol/L [facility] Urea nitrogen [Mass/Vol] 16 mg/dL 6 - 23 mg/dL [facility] Albumin BCP dye [Mass/Vol] 2.8 g/dL Low 3.4-5.0 [facility] Comment on above: Performed By: #### 2 341-6 #### BEVERLEY Poe ([id number]) [facility] ([facility]) [address] [place] [address] 10716 Anion gap [Moles/Vol] mmol/L Low 10-20 [facility] Comment on above: Performed By: #### 2 341-6 #### BEVERLEY Poe ([id number]) [facility] ([facility]) [id number] [place] [address] 45957 Calcium [Mass/Vol] 8.6 mg/dL Normal 8.6-10.6 [facility] Comment on above: Performed By: #### 2 341-6 #### BEVERLEY Poe ([id number]) [facility] ([facility]) [address] [place] [address] 77712 Chloride [Moles/Vol] 101 mmol/L Normal 98-107 [facility] Comment on above: Performed By: #### 2 341-6 #### BEVERLEY Poe ([id number]) [facility] ([facility]) [address] [place] [address] CO2 [Moles/Vol] 45 mmol/L Critically high 21-32 [facility] Comment on above: Performed By: #### 2 341-6 #### BEVERLEY Poe ([id number]) [facility] ([facility]) [address] [place] [address] Creatinine [Mass/Vol] 0.45 mg/dL Low 0.50-1.05 [facility] Comment on above: Performed By: #### 2 341-6 #### BEVERLEY Poe ([id number]) [facility] ([facility]) [address] [place] [address] 38383 GFR/1.73 sq M.predicted MDRD (S/P/Bld) [Vol rate/Area] mL/min/{1.73_m2} Normal >60 [facility] Comment on above: Result Comment: Calc ulations of estimated GFR are performed using the 2020 CKD-EPI Study Refit equation without the race variable for the IDMS-Traceable creatinine methods. https://jasn.asnjournals.org/content/early/ASN.30032 64347 Performed By: #### 2 341-6 #### BEVERLEY Poe ([id number]) [facility] ([facility]) [address] [place] [address] Glucose [Mass/Vol] 111 mg/dL High 74-99 [facility] Comment on above: Performed By: #### 2 341-6 #### BEVERLEY Poe ([id number]) [facility] ([facility]) [address] [place] [address] 69769 Phosphate [Mass/Vol] 3.2 mg/dL Normal 2.5-4.9 [facility] Comment on above: Result Comment: The performance characteristics of phosphorus testing in heparinized plasma have been validated by the individual laboratory site where testing is performed. Testing on heparinized plasma is not approved by the FDA; however, such approval is not necessary. Performed By: #### 2 341-6 #### BEVERLEY Poe ([id number]) [facility] ([facility]) [address] [place] [address] 65673 Potassium [Moles/Vol] 3.8 mmol/L Normal 3.5-5.3 [facility] Comment on above: Performed By: #### 2 341-6 #### BEVERLEY Poe ([id number]) [facility] ([facility]) [address] [place] [address] 12813 Sodium [Moles/Vol] 147 mmol/L High 136-145 [facility] Comment on above: Performed By: #### 2 341-6 #### BEVERLEY Poe ([id number]) [facility] ([facility]) [address] [place] [address] 06627 Urea nitrogen [Mass/Vol] 16 mg/dL Normal 6-23 [facility] Comment on above: Performed By: #### 2 341-6 #### BEVERLEY Poe ([id number]) [facility] ([facility]) [address] [place] [address] 34488 MR Pelvis WO and W contrast Jack 09-25-2023 [facility] MMODAL U[facility] MMODAL [facility] Work Phone: MR Pelvis WO and W contrast IVOrdered By: Clint Woods on 09-25-2023 [facility] Work Phone: CBC panel Auto (Bld)on 09-24 Erythrocyte distribution width (RBC) [Ratio] 14.5 % 11.5 - 14.5 % [facility] Hematocrit (Bld) [Volume fraction] 26.5 % Low 36.0 - 46.0 % [facility] Hemoglobin (Bld) [Mass/Vol] 7.8 g/dL Low 12.0 - 16.0 g/dL [facility] Interpretation and review of laboratory results Abnormal [facility] MCH (RBC) [Entitic mass] 29.1 pg 26.0 - 34.0 pg [facility] MCHC (RBC) [Mass/Vol] 29.4 g/dL Low 32.0 - 36.0 g/dL [facility] MCV (RBC) [Entitic vol] 99 fL 80 - 100 fL [facility] Nucleated RBC/100 WBC (Bld) [Ratio] 0.0 % [facility] Platelets (Bld) [#/Vol] 96 10*3/uL Low [facility] RBC (Bld) [#/Vol] 2.68 10*6/uL Low [facility] WBC (Bld) [#/Vol] 4.7 10*3/uL [facility] Erythrocyte distribution width (RBC) [Ratio] 14.5 % Normal 11.5-14.5 [facility] Comment on above: Performed By: #### 2 341-6 #### BEVERLEY Poe ([id number]) [facility] ([facility]) [address] [place] [address] 94072 Hematocrit (Bld) [Volume fraction] 26.5 % Low 36.0-46.0 [facility] Comment on above: Performed By: #### 2 341-6 #### BEVERLEY Poe ([id number]) [facility] ([facility]) [address] [place] [address] 83860 Hemoglobin (Bld) [Mass/Vol] 7.8 g/dL Low 12.0-16.0 [facility] Comment on above: Performed By: #### 2 341-6 #### BEVERLEY Poe ([id number]) [facility] ([facility]) [address] [place] [address] 40144 MCH (RBC) [Entitic mass] 29.1 pg Normal 26.0-34.0 [facility] Comment on above: Performed By: #### 2 341-6 #### BEVERLEY oPe ([id number]) [facility] ([facility]) [address] [place] [address] 94017 MCHC (RBC) [Mass/Vol] 29.4 g/dL Low 32.0-36.0 [facility] Comment on above: Performed By: #### 2 341-6 #### BEVERLEY Poe ([id number]) [facility] ([facility]) [address] [place] [address] 69821 MCV (RBC) [Entitic vol] 99 fL Normal 80-100 [facility] Comment on above: Performed By: #### 2 341-6 #### BEVERLEY Poe ([id number]) [facility] ([facility]) [address] [place] [address] 68867 Nucleated RBC/100 WBC (Bld) [Ratio] 0.0 /100 WBCs Normal 0.0-0.0 [facility] Comment on above: Performed By: #### 2 341-6 #### BEVERLEY Poe ([id number]) [facility] ([facility]) [address] [place] [address] 19015 Platelets (Bld) [#/Vol] 96 x10*3/uL Low 150-450 [facility] Comment on above: Performed By: #### 2 341-6 #### BEVERLEY Poe ([id number]) [facility] ([facility]) [address] [place] [address] 44270 RBC (Bld) [#/Vol] 2.68 x10*6/uL Low 4.00-5.20 [facility] Comment on above: Performed By: #### 2 341-6 #### BEVERLEY Poe ([id number]) [facility] ([facility]) [address] [place] [address] 36524 WBC (Bld) [#/Vol] 4.7 x10*3/uL Normal 4.4-11.3 [facility] Comment on above: Performed By: #### 2 341-6 #### BEVERLEY Poe ([id number]) [facility] ([facility]) [address] [place] [address] 62619 Glucose Test strip manual (B ld) [Mass/Vol]on 09-24-2023 Glucose [Mass/Vol] 135 mg/dL High 74 - 99 mg/dL [facility] Interpretation and review of laboratory results Abnormal [facility] Magnesiumon 09-24-2023 Magnesium [Mass/Vol] 2.01 mg/dL 1.60 - 2.40 mg/dL [facility] Magnesium [Mass/Vol] 2.01 mg/dL Normal 1.60-2.40 [facility] Comment on above: Performed By: #### 2 341-6 #### BEVERLEY Poe ([id number]) [facility] ([facility]) [address] [place] [address] Magnesium [Mass/Vol]on 09-24 Interpretation and review of laboratory results Normal [facility] No Panel Informationon 09-24 [facility] Renal function 2000 panelon 09-24-2023 Albumin BCP dye [Mass/Vol] 2.8 g/dL Low 3.4 - 5.0 g/dL [facility] Anion gap [Moles/Vol] 10 mmol/L 10 - 2 0 mmol/L [facility] Calcium [Mass/Vol] 8.4 mg/dL Low 8.6 - 10. 6 mg/dL [facility] Chloride [Moles/Vol] 98 mmol/L 98 - 10 7 mmol/L [facility] CO2 [Moles/Vol] 42 mmol/L Critically high 21 - 32 mmol/L [facility] Creatinine [Mass/Vol] 0.42 mg/dL Low 0.50 - 1.05 mg/dL [facility] GFR/1.73 sq M.predicted MDRD (S/P/Bld) [Vol rate/Area] - PINF [facility] Glucose [Mass/Vol] 140 mg/dL High 74 - 99 mg/dL [facility] Interpretation and review of laboratory results Abnormal [facility] Phosphate [Mass/Vol] 3.3 mg/dL 2.5 - 4 .9 mg/dL [facility] Potassium [Moles/Vol] 4.0 mmol/L 3.5 - 5.3 mmol/L [facility] Sodium [Moles/Vol] 146 mmol/L High 136 - 145 mmol/L [facility] Urea nitrogen [Mass/Vol] 10 mg/dL 6 - 23 mg/dL [facility] Albumin BCP dye [Mass/Vol] 2.8 g/dL Low 3.4-5.0 [facility] Comment on above: Performed By: #### 2 341-6 #### BEVERLEY Poe ([id number]) [facility] ([facility]) [address] [place] [address] 11698 Anion gap [Moles/Vol] 10 mmol/L Normal 10-20 [facility] Comment on above: Performed By: #### 2 341-6 #### BEVERLEY Poe ([id number]) [facility] ([facility]) [address] [place] [address] 06039 Calcium [Mass/Vol] 8.4 mg/dL Low 8.6-10.6 [facility] Comment on above: Performed By: #### 2 341-6 #### BEVERLEY Poe ([id number]) [facility] ([facility]) [address] [place] [address] 23453 Chloride [Moles/Vol] 98 mmol/L Normal 98-107 [facility] Comment on above: Performed By: #### 2 341-6 #### BEVERLEY Poe ([id number]) [facility] ([facility]) [address] [place] [address] 37715 CO2 [Moles/Vol] 42 mmol/L Critically high 21-32 [facility] Comment on above: Performed By: #### 2 341-6 #### BEVERLEY Poe ([id number]) [facility] ([facility]) [address] [place] [address] 11414 Creatinine [Mass/Vol] 0.42 mg/dL Low 0.50-1.05 [facility] Comment on above: Performed By: #### 2 341-6 #### BEVERLEY Poe ([id number]) [facility] ([facility]) [address] [place] [address] 60460 GFR/1.73 sq M.predicted MDRD (S/P/Bld) [Vol rate/Area] mL/min/{1.73_m2} Normal >60 [facility] Comment on above: Result Comment: Calc ulations of estimated GFR are performed using the 2020 CKD-EPI Study Refit equation without the race variable for the IDMS-Traceable creatinine methods. https://jasn.asnjournals.org/content//ASN.81809 47709 Performed By: #### 2 341-6 #### BEVERLEY Poe ([id number]) [facility] ([facility]) [address] [place] [address] Glucose [Mass/Vol] 140 mg/dL High 74-99 [facility] Comment on above: Performed By: #### 2 341-6 #### BEVERLEY Poe ([id number]) [facility] ([facility]) [address] [place] [address] 67016 Phosphate [Mass/Vol] 3.3 mg/dL Normal 2.5-4.9 [facility] Comment on above: Result Comment: The performance characteristics of phosphorus testing in heparinized plasma have been validated by the individual laboratory site where testing is performed. Testing on heparinized plasma is not approved by the FDA; however, such approval is not necessary. Performed By: #### 2 341-6 #### BEVERLEY Poe ([id number]) [facility] ([facility]) [address] [place] [address] 29447 Potassium [Moles/Vol] 4.0 mmol/L Normal 3.5-5.3 [facility] Comment on above: Performed By: #### 2 341-6 #### BEVERLEY Poe ([id number]) [facility] ([facility]) [address] [place] [address] Sodium [Moles/Vol] 146 mmol/L High 136-145 [facility] Comment on above: Performed By: #### 2 341-6 #### BEVERLEY Poe ([id number]) [facility] ([facility]) [address] [place] [address] 27724 Urea nitrogen [Mass/Vol] 10 mg/dL Normal 6-23 [facility] Comment on above: Performed By: #### 2 341-6 #### BEVERLEY Poe ([id number]) [facility] ([facility]) [address] [place] [address] 49252 CBC panel Auto (Bld)on 09-23 Erythrocyte distribution width (RBC) [Ratio] 14.4 % 11.5 - 14.5 % [facility] Hematocrit (Bld) [Volume fraction] 26.9 % Low 36.0 - 46.0 % [facility] Hemoglobin (Bld) [Mass/Vol] 7.7 g/dL Low 12.0 - 16.0 g/dL [facility] Interpretation and review of laboratory results Abnormal [facility] MCH (RBC) [Entitic mass] 29.8 pg 26.0 - 34.0 pg [facility] MCHC (RBC) [Mass/Vol] 28.6 g/dL Low 32.0 - 36.0 g/dL [facility] MCV (RBC) [Entitic vol] 104 fL High 80 - 100 fL [facility] Nucleated RBC/100 WBC (Bld) [Ratio] 0.0 % [facility] Platelets (Bld) [#/Vol] 93 10*3/uL Low [facility] RBC (Bld) [#/Vol] 2.58 10*6/uL Low [facility] WBC (Bld) [#/Vol] 4.9 10*3/uL [facility] Erythrocyte distribution width (RBC) [Ratio] 14.4 % Normal 11.5-14.5 [facility] Comment on above: Performed By: #### 2 341-6 #### BEVERLEY Poe ([id number]) [facility] ([facility]) [address] [place] [address] Hematocrit (Bld) [Volume fraction] 26.9 % Low 36.0-46.0 [facility] Comment on above: Performed By: #### 2 341-6 #### BEVERLEY Poe ([id number]) [facility] ([facility]) [address] [place] [address] Hemoglobin (Bld) [Mass/Vol] 7.7 g/dL Low 12.0-16.0 [facility] Comment on above: Performed By: #### 2 341-6 #### BEVERLEY Poe ([id number]) [facility] ([facility]) [address] [place] [address] 60416 MCH (RBC) [Entitic mass] 29.8 pg Normal 26.0-34.0 [facility] Comment on above: Performed By: #### 2 341-6 #### BEVERLEY Poe ([id number]) [facility] ([facility]) [address] [place] [address] 85013 MCHC (RBC) [Mass/Vol] 28.6 g/dL Low 32.0-36.0 [facility] Comment on above: Performed By: #### 2 341-6 #### BEVERLEY Poe ([id number]) [facility] ([facility]) [address] [place] [address] 95130 MCV (RBC) [Entitic vol] 104 fL High 80-100 [facility] Comment on above: Performed By: #### 2 341-6 #### BEVERLEY Poe ([id number]) [facility] ([facility]) [address] [place] [address] 90952 Nucleated RBC/100 WBC (Bld) [Ratio] 0.0 /100 WBCs Normal 0.0-0.0 [facility] Comment on above: Performed By: #### 2 341-6 #### BEVERLEY Poe ([id number]) [facility] ([facility]) [address] [place] [address] 93929 Platelets (Bld) [#/Vol] 93 x10*3/uL Low 150-450 [facility] Comment on above: Performed By: #### 2 341-6 #### BEVERLEY Poe ([id number]) [facility] ([facility]) [address] [place] [address] 29190 RBC (Bld) [#/Vol] 2.58 x10*6/uL Low 4.00-5.20 [facility] Comment on above: Performed By: #### 2 341-6 #### BEVERLEY Poe ([id number]) [facility] ([facility]) [address] [place] [address] WBC (Bld) [#/Vol] 4.9 x10*3/uL Normal 4.4-11.3 [facility] Comment on above: Performed By: #### 2 341-6 #### BEVERLEY Poe ([id number]) [facility] ([facility]) [address] [place] [address] CT ANGIO CORONARY ART WITH H EARTFLOW IF SCORE >30%on 09-23-2023 CT ANGIO CORONARY ART WITH HEARTFLOW IF SCORE >30% Interpreted By: Yair Pham and Akula Navya STUDY: CT ANGIO CORONARY ART WITH HEARTFLOW IF SCORE >30%; 09/26/2023 1:38 pm INDICATION: Signs/Symptoms:Reduced EF; Pre Op optimization. COMPARISON: None. ACCESSION NUMBER(S): [id number] ORDERING CLINICIAN: KANG JULIAN TECHNIQUE: Using multi-detector [...] Yair Pham 09/28/2023 11:26 AM Dictation workstation: [id number] [facility] Carcinoembryonic Agon 2022 Carcinoembryonic Ag [Mass/Vol] ng/mL [facility] Comment on above: Order Comment: REF V ALUES NONSMOKERS 0-2.5 SMOKERS 0-5.0CEA testing is performed by chemiluminescent immunoassay using the [employer]. Values obtained with different analytic methods cannot [...] By: #### 2 341-6 #### BEVERLEY Poe ([id number]) [facility] ([facility]) [address] [place] [address] Carcinoembryonic Ag [Mass/Vo l]on 09-23-2023 [facility] Carcinoembryonic Antigenon 1 11-23-2022 Carcinoembryonic Ag [Mass/Vol] ug/L ug/L [facility] Glucose Test strip manual (B ld) [Mass/Vol]on 09-23-2023 Glucose [Mass/Vol] 146 mg/dL High 74 - 99 mg/dL [facility] Interpretation and review of laboratory results Abnormal [facility] Glucose [Mass/Vol] 146 mg/dL High 74-99 [facility] Comment on above: Performed By: #### 2 341-6 #### BEVERLEY Poe ([id number]) [facility] ([facility]) [address] [place] [address] 28947 Glucose [Mass/Vol] 161 mg/dL High 74 - 99 mg/dL [facility] Interpretation and review of laboratory results Abnormal [facility] Glucose [Mass/Vol] 161 mg/dL High 74-99 [facility] Comment on above: Performed By: #### 2 341-6 #### BEVERLEY Poe ([id number]) [facility] ([facility]) [address] [place] [address] 81142 Magnesiumon 09-23-2023 Magnesium [Mass/Vol] 2.04 mg/dL 1.60 - 2.40 mg/dL [facility] Magnesium [Mass/Vol] 2.04 mg/dL Normal 1.60-2.40 [facility] Comment on above: Performed By: #### 2 341-6 #### BEVERLEY Poe ([id number]) [facility] ([facility]) [address] [place] [address] 11208 Magnesium [Mass/Vol]on 09-23 Interpretation and review of laboratory results Normal [facility] No Panel Informationon 09-23 [facility] Renal function 2000 panelon 09-23-2023 Albumin BCP dye [Mass/Vol] 2.9 g/dL Low 3.4 - 5.0 g/dL [facility] Anion gap [Moles/Vol] 8 mmol/L Low 10 - 2 0 mmol/L [facility] Calcium [Mass/Vol] 8.7 mg/dL 8.6 - 10. 6 mg/dL [facility] Chloride [Moles/Vol] 100 mmol/L 98 - 10 7 mmol/L [facility] CO2 [Moles/Vol] 40 mmol/L Critically high 21 - 32 mmol/L [facility] Creatinine [Mass/Vol] 0.42 mg/dL Low 0.50 - 1.05 mg/dL [facility] GFR/1.73 sq M.predicted MDRD (S/P/Bld) [Vol rate/Area] - PINF [facility] Glucose [Mass/Vol] 123 mg/dL High 74 - 99 mg/dL [facility] Interpretation and review of laboratory results Abnormal [facility] Phosphate [Mass/Vol] 3.0 mg/dL 2.5 - 4 .9 mg/dL [facility] Potassium [Moles/Vol] 4.0 mmol/L 3.5 - 5.3 mmol/L [facility] Sodium [Moles/Vol] 144 mmol/L 136 - 145 mmol/L [facility] Urea nitrogen [Mass/Vol] 13 mg/dL 6 - 23 mg/dL [facility] Albumin BCP dye [Mass/Vol] 2.9 g/dL Low 3.4-5.0 [facility] Comment on above: Performed By: #### 2 341-6 #### BEVERLEY Poe ([id number]) [facility] ([facility]) [address] [place] [address] 23958 Anion gap [Moles/Vol] 8 mmol/L Low 10-20 [facility] Comment on above: Performed By: #### 2 341-6 #### BEVERLEY Poe ([id number]) [facility] ([facility]) [address] [place] [address] 74445 Calcium [Mass/Vol] 8.7 mg/dL Normal 8.6-10.6 [facility] Comment on above: Performed By: #### 2 341-6 #### BEVERLEY Poe ([id number]) [facility] ([facility]) [address] [place] [address] 25847 Chloride [Moles/Vol] 100 mmol/L Normal 98-107 [facility] Comment on above: Performed By: #### 2 341-6 #### BEVERLEY Poe ([id number]) [facility] ([facility]) [address] [place] [address] 09976 CO2 [Moles/Vol] 40 mmol/L Critically high 21-32 [facility] Comment on above: Performed By: #### 2 341-6 #### BEVERLEY Poe ([id number]) [facility] ([facility]) [address] [place] [address] Creatinine [Mass/Vol] 0.42 mg/dL Low 0.50-1.05 [facility] Comment on above: Performed By: #### 2 341-6 #### BEVERLEY Poe ([id number]) [facility] ([facility]) [address] [place] [address] GFR/1.73 sq M.predicted MDRD (S/P/Bld) [Vol rate/Area] mL/min/{1.73_m2} Normal >60 [facility] Comment on above: Result Comment: Calc ulations of estimated GFR are performed using the 2020 CKD-EPI Study Refit equation without the race variable for the IDMS-Traceable creatinine methods. https://jasn.asnjournals.org/content//ASN.49333 88954 Performed By: #### 2 341-6 #### BEVERLEY Poe ([id number]) [facility] ([facility]) [address] [place] [address] Glucose [Mass/Vol] 123 mg/dL High 74-99 [facility] Comment on above: Performed By: #### 2 341-6 #### BEVERLEY Poe ([id number]) [facility] ([facility]) [address] [place] [address] Phosphate [Mass/Vol] 3.0 mg/dL Normal 2.5-4.9 [facility] Comment on above: Result Comment: The performance characteristics of phosphorus testing in heparinized plasma have been validated by the individual laboratory site where testing is performed. Testing on heparinized plasma is not approved by the FDA; however, such approval is not necessary. Performed By: #### 2 341-6 #### BEVERLEY Poe ([id number]) [facility] ([facility]) [address] [place] [address] Potassium [Moles/Vol] 4.0 mmol/L Normal 3.5-5.3 [facility] Comment on above: Performed By: #### 2 341-6 #### BEVERLEY DODD L ([id number]) [facility] ([facility]) [address] [place] [address] Sodium [Moles/Vol] 144 mmol/L Normal 136-145 [facility] Comment on above: Performed By: #### 2 341-6 #### BEVERLEY DODD L ([id number]) [facility] ([facility]) [address] [place] [address] 44815 Urea nitrogen [Mass/Vol] 13 mg/dL Normal 6-23 [facility] Comment on above: Performed By: #### 2 341-6 #### BEVERLEY DODD L ([id number]) [facility] ([facility]) [address] [place] [address] 75956 Bacteria identified Cx Nom ( U)Ordered By: Rakesh Srivastava on 09-22-2023 Interpretation and review of laboratory results Abnormal [facility] CBC panel Auto (Bld)on 09-22 Erythrocyte distribution width (RBC) [Ratio] 14.6 % High 11.5 - 14.5 % [facility] Hematocrit (Bld) [Volume fraction] 27.9 % Low 36.0 - 46.0 % [facility] Hemoglobin (Bld) [Mass/Vol] 8.0 g/dL Low 12.0 - 16.0 g/dL [facility] Interpretation and review of laboratory results Abnormal [facility] MCH (RBC) [Entitic mass] 29.9 pg 26.0 - 34.0 pg [facility] MCHC (RBC) [Mass/Vol] 28.7 g/dL Low 32.0 - 36.0 g/dL [facility] MCV (RBC) [Entitic vol] 104 fL High 80 - 100 fL [facility] Nucleated RBC/100 WBC (Bld) [Ratio] 0.0 % [facility] Platelets (Bld) [#/Vol] 99 10*3/uL Low [facility] RBC (Bld) [#/Vol] 2.68 10*6/uL Low [facility] WBC (Bld) [#/Vol] 4.7 10*3/uL [facility] Erythrocyte distribution width (RBC) [Ratio] 14.6 % High 11.5-14.5 [facility] Comment on above: Performed By: #### 3 4531-2 #### BEVERLEY Poe ([id number]) [facility] ([facility]) [address] [place] [address] Hematocrit (Bld) [Volume fraction] 27.9 % Low 36.0-46.0 [facility] Comment on above: Performed By: #### 3 4531-2 #### BEVERLEY Poe ([id number]) [facility] ([facility]) [address] [place] [address] Hemoglobin (Bld) [Mass/Vol] 8.0 g/dL Low 12.0-16.0 [facility] Comment on above: Performed By: #### 3 4531-2 #### BEVERLEY Poe ([id number]) [facility] ([facility]) [address] [place] [address] MCH (RBC) [Entitic mass] 29.9 pg Normal 26.0-34.0 [facility] Comment on above: Performed By: #### 3 4531-2 #### BEVERLEY Poe ([id number]) [facility] ([facility]) [address] [place] [address] MCHC (RBC) [Mass/Vol] 28.7 g/dL Low 32.0-36.0 [facility] Comment on above: Performed By: #### 3 4531-2 #### BEVERLEY Poe ([id number]) [facility] ([facility]) [address] [place] [address] MCV (RBC) [Entitic vol] 104 fL High 80-100 [facility] Comment on above: Performed By: #### 3 4531-2 #### BEVERLEY Poe ([id number]) [facility] ([facility]) [address] [place] [address] Nucleated RBC/100 WBC (Bld) [Ratio] 0.0 /100 WBCs Normal 0.0-0.0 [facility] Comment on above: Performed By: #### 3 4532-2 #### BEVERLEY Poe ([id number]) [facility] ([facility]) [address] [place] [address] Platelets (Bld) [#/Vol] 99 x10*3/uL Low 150-450 [facility] Comment on above: Performed By: #### 3 4532-2 #### BEVERLEY Poe ([id number]) [facility] ([facility]) [address] [place] [address] RBC (Bld) [#/Vol] 2.68 x10*6/uL Low 4.00-5.20 [facility] Comment on above: Performed By: #### 3 4532-2 #### BEVERLEY Poe ([id number]) [facility] ([facility]) [address] [place] [address] WBC (Bld) [#/Vol] 4.7 x10*3/uL Normal 4.4-11.3 [facility] Comment on above: Performed By: #### 3 4532-2 #### BEVERLEY Poe ([id number]) [facility] ([facility]) [address] [place] [address] Glucose Test strip manual (B ld) [Mass/Vol]on 09-22-2023 Glucose [Mass/Vol] 160 mg/dL High 74 - 99 mg/dL [facility] Interpretation and review of laboratory results Abnormal [facility] Glucose [Mass/Vol] 160 mg/dL High 74-99 [facility] Comment on above: Performed By: #### 2 341-6 #### BEVERLEY Poe ([id number]) [facility] ([facility]) [address] [place] [address] Glucose [Mass/Vol] 174 mg/dL High 74 - 99 mg/dL [facility] Interpretation and review of laboratory results Abnormal [facility] Glucose [Mass/Vol] 174 mg/dL High 74-99 [facility] Comment on above: Performed By: #### 2 341-6 #### BEVERLEY Poe ([id number]) [facility] ([facility]) [address] [place] [address] Glucose [Mass/Vol] 135 mg/dL High 74-99 [facility] Comment on above: Performed By: #### 2 341-6 #### BEVERLEY Poe ([id number]) [facility] ([facility]) [address] [place] [address] Glucose [Mass/Vol] 148 mg/dL High 74 - 99 mg/dL [facility] Interpretation and review of laboratory results Abnormal [facility] Glucose [Mass/Vol] 148 mg/dL High 74-99 [facility] Comment on above: Performed By: #### 3 4532-2 #### BEVERLEY Poe ([id number]) [facility] ([facility]) [address] [place] [address] Magnesiumon 09-22-2023 Magnesium [Mass/Vol] 2.07 mg/dL 1.60 - 2.40 mg/dL [facility] Magnesium [Mass/Vol] 2.07 mg/dL Normal 1.60-2.40 [facility] Comment on above: Performed By: #### 3 4532-2 #### BEVERLEY Poe ([id number]) [facility] ([facility]) [address] [place] [address] Magnesium [Mass/Vol]on 09-22 Interpretation and review of laboratory results Normal [facility] No Panel Informationon 09-22 [facility] Renal function 2000 panelon 09-22-2023 Albumin BCP dye [Mass/Vol] 2.7 g/dL Low 3.4 - 5.0 g/dL [facility] Anion gap [Moles/Vol] 11 mmol/L 10 - 2 0 mmol/L [facility] Calcium [Mass/Vol] 8.3 mg/dL Low 8.6 - 10. 6 mg/dL [facility] Chloride [Moles/Vol] 101 mmol/L 98 - 10 7 mmol/L [facility] CO2 [Moles/Vol] 38 mmol/L High 21 - 32 mmol/L [facility] Creatinine [Mass/Vol] 0.42 mg/dL Low 0.50 - 1.05 mg/dL [facility] GFR/1.73 sq M.predicted MDRD (S/P/Bld) [Vol rate/Area] - PINF [facility] Glucose [Mass/Vol] 134 mg/dL High 74 - 99 mg/dL [facility] Interpretation and review of laboratory results Abnormal [facility] Phosphate [Mass/Vol] 3.4 mg/dL 2.5 - 4 .9 mg/dL [facility] Potassium [Moles/Vol] 4.0 mmol/L 3.5 - 5.3 mmol/L [facility] Sodium [Moles/Vol] 146 mmol/L High 136 - 145 mmol/L [facility] Urea nitrogen [Mass/Vol] 15 mg/dL 6 - 23 mg/dL [facility] Albumin BCP dye [Mass/Vol] 2.7 g/dL Low 3.4-5.0 [facility] Comment on above: Performed By: #### 3 4532-2 #### BEVERLEY Poe ([id number]) [facility] ([facility]) [address] [place] [address] Anion gap [Moles/Vol] 11 mmol/L Normal 10-20 [facility] Comment on above: Performed By: #### 3 4532-2 #### BEVERLEY Poe ([id number]) [facility] ([facility]) [address] [place] [address] Calcium [Mass/Vol] 8.3 mg/dL Low 8.6-10.6 [facility] Comment on above: Performed By: #### 3 4532-2 #### BEVERLEY Poe ([id number]) [facility] ([facility]) [address] [place] [address] Chloride [Moles/Vol] 101 mmol/L Normal 98-107 [facility] Comment on above: Performed By: #### 3 4532-2 #### BEVERLEY Poe ([id number]) [facility] ([facility]) [address] [place] [address] CO2 [Moles/Vol] 38 mmol/L High 21-32 [facility] Comment on above: Performed By: #### 3 4532-2 #### BEVERLEY Poe ([id number]) [facility] ([facility]) [address] [place] [address] Creatinine [Mass/Vol] 0.42 mg/dL Low 0.50-1.05 [facility] Comment on above: Performed By: #### 3 4532-2 #### BEVERLEY Poe ([id number]) [facility] ([facility]) [address] [place] [address] GFR/1.73 sq M.predicted MDRD (S/P/Bld) [Vol rate/Area] mL/min/{1.73_m2} Normal >60 [facility] Comment on above: Result Comment: Calc ulations of estimated GFR are performed using the 2020 CKD-EPI Study Refit equation without the race variable for the IDMS-Traceable creatinine methods. https://jasn.asnjournals.org/content//ASN.35130 64849 Performed By: #### 3 4532-2 #### BEVERLEY Poe ([id number]) [facility] ([facility]) [address] [place] [address] Glucose [Mass/Vol] 134 mg/dL High 74-99 [facility] Comment on above: Performed By: #### 3 4532-2 #### BEVERLEY Poe ([id number]) [facility] ([facility]) [address] [place] [address] Phosphate [Mass/Vol] 3.4 mg/dL Normal 2.5-4.9 [facility] Comment on above: Result Comment: The performance characteristics of phosphorus testing in heparinized plasma have been validated by the individual laboratory site where testing is performed. Testing on heparinized plasma is not approved by the FDA; however, such approval is not necessary. Performed By: #### 3 4532-2 #### BEVERLEY Poe ([id number]) [facility] ([facility]) [address] [place] [address] Potassium [Moles/Vol] 4.0 mmol/L Normal 3.5-5.3 [facility] Comment on above: Performed By: #### 3 4532-2 #### BEVERLEY Poe ([id number]) [facility] ([facility]) [address] [place] [address] Sodium [Moles/Vol] 146 mmol/L High 136-145 [facility] Comment on above: Performed By: #### 3 4532-2 #### BEVERLEY Poe ([id number]) [facility] ([facility]) [address] [place] [address] Urea nitrogen [Mass/Vol] 15 mg/dL Normal 6-23 [facility] Comment on above: Performed By: #### 3 4532-2 #### BEVERLEY Poe ([id number]) [facility] ([facility]) [address] [place] [address] Urine cultureOrdered By: Kel Srivastava on 09-22-2023 Bacteria identified Cx Nom (U) >100,000 Enterococcus faecium Abnormal [facility] CBC panel Auto (Bld)on 09-21 Erythrocyte distribution width (RBC) [Ratio] 14.4 % 11.5 - 14.5 % [facility] Hematocrit (Bld) [Volume fraction] 25.6 % Low 36.0 - 46.0 % [facility] Hemoglobin (Bld) [Mass/Vol] 8.0 g/dL Low 12.0 - 16.0 g/dL [facility] Interpretation and review of laboratory results Abnormal [facility] MCH (RBC) [Entitic mass] 30.5 pg 26.0 - 34.0 pg [facility] MCHC (RBC) [Mass/Vol] 31.3 g/dL Low 32.0 - 36.0 g/dL [facility] MCV (RBC) [Entitic vol] 98 fL 80 - 100 fL [facility] Nucleated RBC/100 WBC (Bld) [Ratio] 0.0 % [facility] Platelets (Bld) [#/Vol] 88 10*3/uL Low [facility] RBC (Bld) [#/Vol] 2.62 10*6/uL Low [facility] WBC (Bld) [#/Vol] 5.0 10*3/uL [facility] Erythrocyte distribution width (RBC) [Ratio] 14.4 % Normal 11.5-14.5 [facility] Comment on above: Performed By: #### 2 341-6 #### BEVERLEY Poe ([id number]) [facility] ([facility]) [address] [place] [address] Hematocrit (Bld) [Volume fraction] 25.6 % Low 36.0-46.0 [facility] Comment on above: Performed By: #### 2 341-6 #### BEVERLEY Poe ([id number]) [facility] ([facility]) [address] [place] [address] Hemoglobin (Bld) [Mass/Vol] 8.0 g/dL Low 12.0-16.0 [facility] Comment on above: Performed By: #### 2 341-6 #### BEVERLEY Poe ([id number]) [facility] ([facility]) [address] [place] [address] MCH (RBC) [Entitic mass] 30.5 pg Normal 26.0-34.0 [facility] Comment on above: Performed By: #### 2 341-6 #### BEVERLEY Poe ([id number]) [facility] ([facility]) [address] [place] [address] MCHC (RBC) [Mass/Vol] 31.3 g/dL Low 32.0-36.0 [facility] Comment on above: Performed By: #### 2 341-6 #### BEVERLEY Poe ([id number]) [facility] ([facility]) [address] [place] [address] MCV (RBC) [Entitic vol] 98 fL Normal 80-100 [facility] Comment on above: Performed By: #### 2 341-6 #### BEVERLEY Poe ([id number]) [facility] ([facility]) [address] [place] [address] Nucleated RBC/100 WBC (Bld) [Ratio] 0.0 /100 WBCs Normal 0.0-0.0 [facility] Comment on above: Performed By: #### 2 341-6 #### BEVERLEY Poe ([id number]) [facility] ([facility]) [address] [place] [address] Platelets (Bld) [#/Vol] 88 x10*3/uL Low 150-450 [facility] Comment on above: Performed By: #### 2 341-6 #### BEVERLEY Poe ([id number]) [facility] ([facility]) [address] [place] [address] RBC (Bld) [#/Vol] 2.62 x10*6/uL Low 4.00-5.20 [facility] Comment on above: Performed By: #### 2 341-6 #### BEVERLEY Poe ([id number]) [facility] ([facility]) [address] [place] [address] WBC (Bld) [#/Vol] 5.0 x10*3/uL Normal 4.4-11.3 [facility] Comment on above: Performed By: #### 2 341-6 #### BEVERLEY Poe ([id number]) [facility] ([facility]) [address] [place] [address] Cancer Ag 125 Qnon 3 Interpretation and review of laboratory results Normal [facility] Cancer Antigen 125on 023 Cancer Ag 125 Qn 22.0 [arb'U]/mL 0.0 - 30 .2 U/mL [facility] Glucose Test strip manual (B ld) [Mass/Vol]on 09-21-2023 Glucose [Mass/Vol] 189 mg/dL High 74 - 99 mg/dL [facility] Interpretation and review of laboratory results Abnormal [facility] Glucose [Mass/Vol] 189 mg/dL High 74-99 [facility] Comment on above: Performed By: #### 3 4532-2 #### BEVERLEY Poe ([id number]) [facility] ([facility]) [address] [place] [address] Glucose [Mass/Vol] 120 mg/dL High 74 - 99 mg/dL [facility] Interpretation and review of laboratory results Abnormal [facility] Glucose [Mass/Vol] 120 mg/dL High 74-99 [facility] Comment on above: Performed By: #### 3 4532-2 #### BEVERLEY Poe ([id number]) [facility] ([facility]) [address] [place] [address] Glucose [Mass/Vol] 162 mg/dL High 74 - 99 mg/dL [facility] Interpretation and review of laboratory results Abnormal [facility] Glucose [Mass/Vol] 162 mg/dL High 74-99 [facility] Comment on above: Performed By: #### 3 4532-2 #### BEVERLEY Poe ([id number]) [facility] ([facility]) [address] [place] [address] Glucose [Mass/Vol] 134 mg/dL High 74 - 99 mg/dL [facility] Interpretation and review of laboratory results Abnormal [facility] Glucose [Mass/Vol] 134 mg/dL High 74-99 [facility] Comment on above: Performed By: #### 2 341-6 #### BEVERLEY Poe ([id number]) [facility] ([facility]) [address] [place] [address] Glucose [Mass/Vol] 136 mg/dL High 74 - 99 mg/dL [facility] Interpretation and review of laboratory results Abnormal [facility] Glucose [Mass/Vol] 136 mg/dL High 74-99 [facility] Comment on above: Performed By: #### 2 341-6 #### BEVERLEY Poe ([id number]) [facility] ([facility]) [address] [place] [address] Glucose [Mass/Vol] 123 mg/dL High 74 - 99 mg/dL [facility] Interpretation and review of laboratory results Abnormal [facility] Glucose [Mass/Vol] 123 mg/dL High 74-99 [facility] Comment on above: Performed By: #### 2 341-6 #### BEVERLEY Poe ([id number]) [facility] ([facility]) [address] [place], [place] [id number] MR PELVIS W AND WO IV CONTRA Shaista 09-21-2023 MR PELVIS W AND WO IV CONTRAST Interpreted By: Clint Thurman and Weaver Jakob STUDY: MR PELVIS W AND WO IV [...] colovesical colovaginal fistula. COMPARISON: None ACCESSION NUMBER(S): [id number] ORDERING CLINICIAN: KANG JULIAN TECHNIQUE: Multiplanar MRI [...] lumen. The bladder lumen is decompressed with Stephens catheter and balloon in place, distinct from [...] Cristina MD. This study was interpreted at [place], [place]. MACRO: None Signed by: Clint Woods 09/25/2023 3:47 PM Dictation workstation: [id number] Normal [facility] MR Pelvis WO and W contrast Jack 09-21-2023 Radiology Study observation (narrative) [facility] Work Phone: Magnesiumon 09-21-2023 Magnesium [Mass/Vol] 2.05 mg/dL 1.60 - 2.40 mg/dL [facility] Magnesium [Mass/Vol] 2.05 mg/dL Normal 1.60-2.40 [facility] Comment on above: Performed By: #### 2 341-6 #### BEVERLEY Poe ([id number]) [facility] ([facility]) [address] [place] [address] Magnesium [Mass/Vol]on 09-21 Interpretation and review of laboratory results Normal [facility] No Panel Informationon 09-21 [facility] Renal function 2000 panelon 09-21-2023 Albumin BCP dye [Mass/Vol] 2.7 g/dL Low 3.4 - 5.0 g/dL [facility] Anion gap [Moles/Vol] 8 mmol/L Low 10 - 2 0 mmol/L [facility] Calcium [Mass/Vol] 8.3 mg/dL Low 8.6 - 10. 6 mg/dL [facility] Chloride [Moles/Vol] 101 mmol/L 98 - 10 7 mmol/L [facility] CO2 [Moles/Vol] 41 mmol/L Critically high 21 - 32 mmol/L [facility] Creatinine [Mass/Vol] 0.45 mg/dL Low 0.50 - 1.05 mg/dL [facility] GFR/1.73 sq M.predicted MDRD (S/P/Bld) [Vol rate/Area] - PINF [facility] Glucose [Mass/Vol] 140 mg/dL High 74 - 99 mg/dL [facility] Interpretation and review of laboratory results Abnormal [facility] Phosphate [Mass/Vol] 3.4 mg/dL 2.5 - 4 .9 mg/dL [facility] Potassium [Moles/Vol] 3.8 mmol/L 3.5 - 5.3 mmol/L [facility] Sodium [Moles/Vol] 146 mmol/L High 136 - 145 mmol/L [facility] Urea nitrogen [Mass/Vol] 12 mg/dL 6 - 23 mg/dL [facility] Albumin BCP dye [Mass/Vol] 2.7 g/dL Low 3.4-5.0 [facility] Comment on above: Performed By: #### 3 4532-2 #### BEVERLEY Poe ([id number]) [facility] ([facility]) [address] [place] [address] Anion gap [Moles/Vol] 8 mmol/L Low 10-20 [facility] Comment on above: Performed By: #### 3 2-2 #### BEVERLEY Poe ([id number]) [facility] ([facility]) [address] [place] [address] Calcium [Mass/Vol] 8.3 mg/dL Low 8.6-10.6 [facility] Comment on above: Performed By: #### 3 4531-2 #### BEVERLEY Poe ([id number]) [facility] ([facility]) [address] [place] [address] Chloride [Moles/Vol] 101 mmol/L Normal 98-107 [facility] Comment on above: Performed By: #### 3 4531-2 #### BEVERLEY Poe ([id number]) [facility] ([facility]) [address] [place] [address] CO2 [Moles/Vol] 41 mmol/L Critically high 21-32 [facility] Comment on above: Performed By: #### 3 4531-2 #### BEVERLEY Poe ([id number]) [facility] ([facility]) [address] [place] [address] Creatinine [Mass/Vol] 0.45 mg/dL Low 0.50-1.05 [facility] Comment on above: Performed By: #### 3 453-2 #### BEVERLEY Poe (85020) [facility] ([facility]) [address] [place] [address] GFR/1.73 sq M.predicted MDRD (S/P/Bld) [Vol rate/Area] mL/min/{1.73_m2} Normal >60 [facility] Comment on above: Result Comment: Calc ulations of estimated GFR are performed using the 2020 CKD-EPI Study Refit equation without the race variable for the IDMS-Traceable creatinine methods. https://jasn.asnjournals.org/content//ASN.67421 52559 Performed By: #### 3 4532-2 #### BEVERLEY Poe ([id number]) [facility] ([facility]) [address] [place] [address] Glucose [Mass/Vol] 140 mg/dL High 74-99 [facility] Comment on above: Performed By: #### 3 4532-2 #### BEVERLEY Poe ([id number]) [facility] ([facility]) [address] [place] [address] Phosphate [Mass/Vol] 3.4 mg/dL Normal 2.5-4.9 [facility] Comment on above: Result Comment: The performance characteristics of phosphorus testing in heparinized plasma have been validated by the individual laboratory site where testing is performed. Testing on heparinized plasma is not approved by the FDA; however, such approval is not necessary. Performed By: #### 3 4532-2 #### BEVERLEY Poe ([id number]) [facility] ([facility]) [address] [place] [address] Potassium [Moles/Vol] 3.8 mmol/L Normal 3.5-5.3 [facility] Comment on above: Performed By: #### 3 4532-2 #### BEVERLEY Poe ([id number]) [facility] ([facility]) [address] [place] [address] Sodium [Moles/Vol] 146 mmol/L High 136-145 [facility] Comment on above: Performed By: #### 3 4532-2 #### BEVERLEY Poe ([id number]) [facility] ([facility]) [address] [place] [address] Urea nitrogen [Mass/Vol] 12 mg/dL Normal 6-23 [facility] Comment on above: Performed By: #### 3 4532-2 #### BEVERLEY Poe ([id number]) [facility] ([facility]) [address] [place], [place] [address] Bacteria identifiedon 2022 Bacteria identified Cx Nom (U) Test: Urine culture Specimen Source: Indwelling (Stephens) Catheter Specimen Type: Urine Specimen Date: 09/20/2023 3:34 PM Result Date: 09/22/2023 11:36 AM Result Status: Final result Abnormal: Yes Resulting Lab: [facility] [address] [place], [place] [id number] CULTURE >100,000 Enterococcus faecium (Abnormal) Vancomycin Resistant Enterococcus (VRE) SUSCEPTIBILITY Enterococcus faecium METHOD MICROSCAN ---- ------- AMPICILLIN -- Resistant CIPROFLOXACIN -- Resistant DAPTOMYCIN -- Susceptible-dose dependent LEVOFLOXACIN -- Resistant LINEZOLID -- Susceptible NITROFURANTOIN -- Susceptible PENICILLIN -- Resistant TRIMETHOPRIM/SULFAMETHOXA ZOLE -- Resistant VANCOMYCIN -- Resistant Abnormal [facility] Comment on above: Performed By: #### 3 4532-2 #### BEVERLEY Poe ([id number]) [facility] ([facility]) [address] [place], [place] [id number] CBC panel Auto (Bld)on 09-20 Erythrocyte distribution width (RBC) [Ratio] 14.5 % 11.5 - 14.5 % [facility] Hematocrit (Bld) [Volume fraction] 27.7 % Low 36.0 - 46.0 % [facility] Hemoglobin (Bld) [Mass/Vol] 8.3 g/dL Low 12.0 - 16.0 g/dL [facility] Interpretation and review of laboratory results Abnormal [facility] MCH (RBC) [Entitic mass] 30.6 pg 26.0 - 34.0 pg [facility] MCHC (RBC) [Mass/Vol] 30.0 g/dL Low 32.0 - 36.0 g/dL [facility] MCV (RBC) [Entitic vol] 102 fL High 80 - 100 fL [facility] Nucleated RBC/100 WBC (Bld) [Ratio] 0.0 % [facility] Platelets (Bld) [#/Vol] 92 10*3/uL Low [facility] RBC (Bld) [#/Vol] 2.71 10*6/uL [facility] WBC (Bld) [#/Vol] 4.3 10*3/uL [facility] Erythrocyte distribution width (RBC) [Ratio] 14.5 % Normal 11.5-14.5 [facility] Comment on above: Performed By: #### 6 00-7 #### BEVERLEY Poe ([id number]) [facility] ([facility]) [address] [place] [address] Hematocrit (Bld) [Volume fraction] 27.7 % Low 36.0-46.0 [facility] Comment on above: Performed By: #### 6 00-7 #### BEVERLEY Poe ([id number]) [facility] ([facility]) [address] [place] [address] Hemoglobin (Bld) [Mass/Vol] 8.3 g/dL Low 12.0-16.0 [facility] Comment on above: Performed By: #### 6 00-7 #### BEVERLEY Poe ([id number]) [facility] ([facility]) [address] [place] [address] MCH (RBC) [Entitic mass] 30.6 pg Normal 26.0-34.0 [facility] Comment on above: Performed By: #### 6 00-7 #### BEVERLEY Poe ([id number]) [facility] ([facility]) [address] [place] [address] MCHC (RBC) [Mass/Vol] 30.0 g/dL Low 32.0-36.0 [facility] Comment on above: Performed By: #### 6 -7 #### BEVERLEY DODD L ([id number]) [facility] ([facility]) [address] [place] [address] MCV (RBC) [Entitic vol] 102 fL High 80-100 [facility] Comment on above: Performed By: #### 6 -7 #### BEVERLEY Poe ([id number]) [facility] ([facility]) [address] [place] [address] Nucleated RBC/100 WBC (Bld) [Ratio] 0.0 /100 WBCs Normal 0.0-0.0 [facility] Comment on above: Performed By: #### 6 -7 #### BEVERLEY DODD L ([id number]) [facility] ([facility]) [address] [place] [address] 55204 Platelets (Bld) [#/Vol] 92 x10*3/uL Low 150-450 [facility] Comment on above: Performed By: #### 6 -7 #### BEVERLEY Poe ([id number]) [facility] ([facility]) [address] [place] [address] RBC (Bld) [#/Vol] 2.71 x10*6/uL Low 4.00-5.20 [facility] Comment on above: Performed By: #### 6 -7 #### BEVERLEY DODD L ([id number]) [facility] ([facility]) [address] [place] [address] 61025 WBC (Bld) [#/Vol] 4.3 x10*3/uL Low 4.4-11.3 [facility] Comment on above: Performed By: #### 6 -7 #### BEVERLEY Poe ([id number]) [facility] ([facility]) [address] [place] [address] 18282 Cancer Ag 19-9on 09-20-2023 Cancer Ag 19-9 Qn 6.88 [arb'U]/mL Normal <35.00 Un [facility] Comment on above: Order Comment: CA 19 -9 testing is performed by chemiluminescent immunoassay using the Siemens FutureAdvisor. Values obtained with different analytic methods cannot [...] By: #### 2 341-6 #### BEVERLEY Poe ([id number]) [facility] ([facility]) [address] [place] [address] 63007 Cancer Ag 19-9 Qnon 09-20-20 Interpretation and review of laboratory results Normal [facility] Cancer Antigen 19-9on 2022 Cancer Ag 19-9 Qn 6.88 [arb'U]/mL NINF - 35.00 U/mL [facility] Glucose Test strip manual (B ld) [Mass/Vol]on 09-20-2023 Glucose [Mass/Vol] 210 mg/dL High 74 - 99 mg/dL [facility] Interpretation and review of laboratory results Abnormal [facility] Glucose [Mass/Vol] 210 mg/dL High 74-99 [facility] Comment on above: Performed By: #### 2 341-6 #### BEVERLEY Poe ([id number]) [facility] ([facility]) [address] [place] [address] 67284 Glucose [Mass/Vol] 114 mg/dL High 74 - 99 mg/dL [facility] Interpretation and review of laboratory results Abnormal [facility] Glucose [Mass/Vol] 114 mg/dL High 74-99 [facility] Comment on above: Performed By: #### 2 341-6 #### BEVERLEY Poe ([id number]) [facility] ([facility]) [address] [place] [address] 53938 Glucose [Mass/Vol] 152 mg/dL High 74 - 99 mg/dL [facility] Interpretation and review of laboratory results Abnormal [facility] Glucose [Mass/Vol] 152 mg/dL High 74-99 [facility] Comment on above: Performed By: #### 2 341-6 #### BEVERLEY Poe ([id number]) [facility] ([facility]) [address] [place] [address] 64982 Glucose [Mass/Vol] 140 mg/dL High 74 - 99 mg/dL [facility] Interpretation and review of laboratory results Abnormal [facility] Glucose [Mass/Vol] 140 mg/dL High 74-99 [facility] Comment on above: Performed By: #### 6 00-7 #### BEVERLEY Poe ([id number]) [facility] ([facility]) [address] [place] [address] 44063 Glucose [Mass/Vol] 125 mg/dL High 74 - 99 mg/dL [facility] Interpretation and review of laboratory results Abnormal [facility] Glucose [Mass/Vol] 125 mg/dL High 74-99 [facility] Comment on above: Performed By: #### 6 00-7 #### BEVERLEY Poe ([id number]) [facility] ([facility]) [address] [place] [address] 86347 Glucose [Mass/Vol] 111 mg/dL High 74 - 99 mg/dL [facility] Glucose [Mass/Vol] 213 mg/dL High 74 - 99 mg/dL [facility] Interpretation and review of laboratory results Abnormal [facility] Glucose [Mass/Vol] 109 mg/dL High 74 - 99 mg/dL [facility] Interpretation and review of laboratory results Abnormal [facility] Glucose [Mass/Vol] 109 mg/dL High 74-99 [facility] Comment on above: Performed By: #### 6 00-7 #### BEVERLEY Poe ([id number]) [facility] ([facility]) [address] [place], [place] [id number] HCV Ab Ql (S)on 09-20-2023 Interpretation and review of laboratory results Normal [facility] HIV 1+2 Ab+HIV1 p24 Agon HIV 1+2 Ab+HIV1 p24 Ag IA Ql Non-Reactive Normal Nonreactive [facility] Comment on above: Order Comment: HIV A g/Ab screen is performed using the Siemens AtellAngry Citizen HIV Ag/Ab Combo assay which detects the presence of HIV p24 antigen as well as antibodies to HIV-1 (Group M and O) and HIV-2.No laboratory evidence of HIV infection. If acute HIV infection is suspected, consider testing for HIV RNA by PCR (viral load). Performed By: #### 6 00-7 #### BEVERLEY Poe ([id number]) [facility] ([facility]) [address] [place], [place] [id number] HIV 1+2 Ab+HIV1 p24 Ag IA Ql on 09-20-2023 Interpretation and review of laboratory results Normal [facility] HIV 1/2 Antigen/Antibody Scr een with Reflex to Confirmationon 09-20-2023 HIV 1+2 Ab+HIV1 p24 Ag IA Ql Non-Reactive Nonreactive [facility] Hepatitis C Antibodyon 09-20 HCV Ab Ql (S) Non-Reactive Nonreactive [facility] Hepatitis C virus Abon 09-20 HCV Ab Ql (S) Non-Reactive Normal Nonreactive [facility] Comment on above: Result Comment: Resu lts from patients taking biotin supplements or receiving high-dose biotin therapy should be interpreted with caution due to possible interference with this test. Providers may contact their local laboratory for further information. Performed By: #### 6 00-7 #### BEVERLEY Poe ([id number]) [facility] ([facility]) [address] [place] [address] Magnesiumon 09-20-2023 Magnesium [Mass/Vol] 2.15 mg/dL 1.60 - 2.40 mg/dL [facility] Magnesium [Mass/Vol] 2.15 mg/dL Normal 1.60-2.40 [facility] Comment on above: Performed By: #### 6 00-7 #### BEVERLEY Poe ([id number]) [facility] ([facility]) [address] [place] [address] Magnesium [Mass/Vol]on 09-20 Interpretation and review of laboratory results Normal [facility] No Panel Informationon 09-20 [facility] UH MMODAL UH MMODAL [facility] Work Phone: No Panel InformationOrdered By: Steven Chacon on 09-20-2023 [facility] Work Phone: Renal function 2000 panelon 09-20-2023 Albumin BCP dye [Mass/Vol] 2.9 g/dL Low 3.4 - 5.0 g/dL [facility] Anion gap [Moles/Vol] 9 mmol/L Low 10 - 2 0 mmol/L [facility] Calcium [Mass/Vol] 8.7 mg/dL 8.6 - 10. 6 mg/dL [facility] Chloride [Moles/Vol] 99 mmol/L 98 - 10 7 mmol/L [facility] CO2 [Moles/Vol] 40 mmol/L Critically high 21 - 32 mmol/L [facility] Creatinine [Mass/Vol] 0.51 mg/dL 0.50 - 1.05 mg/dL [facility] GFR/1.73 sq M.predicted MDRD (S/P/Bld) [Vol rate/Area] - PINF [facility] Glucose [Mass/Vol] 117 mg/dL High 74 - 99 mg/dL [facility] Interpretation and review of laboratory results Abnormal [facility] Phosphate [Mass/Vol] 3.0 mg/dL 2.5 - 4 .9 mg/dL [facility] Potassium [Moles/Vol] 3.9 mmol/L 3.5 - 5.3 mmol/L [facility] Sodium [Moles/Vol] 144 mmol/L 136 - 145 mmol/L [facility] Urea nitrogen [Mass/Vol] 9 mg/dL 6 - 23 mg/dL [facility] Albumin BCP dye [Mass/Vol] 2.9 g/dL Low 3.4-5.0 [facility] Comment on above: Performed By: #### 6 00-7 #### BEVERLEY DODD L ([id number]) [facility] ([facility]) [address] [place] [address] 53444 Anion gap [Moles/Vol] 9 mmol/L Low 10-20 [facility] Comment on above: Performed By: #### 6 -7 #### BEVERLEY VORAMOSOCO L ([id number]) [facility] ([facility]) [address] [place] [address] 33559 Calcium [Mass/Vol] 8.7 mg/dL Normal 8.6-10.6 [facility] Comment on above: Performed By: #### 6 00-7 #### BEVERLEY VORAMOTZSIDNEY L ([id number]) [facility] ([facility]) [address] [place] [address] 69909 Chloride [Moles/Vol] 99 mmol/L Normal 98-107 [facility] Comment on above: Performed By: #### 6 00-7 #### BEVERLEY VORAMOSOCO L ([id number]) [facility] ([facility]) [address] [place] [address] 58319 CO2 [Moles/Vol] 40 mmol/L Critically high 21-32 [facility] Comment on above: Performed By: #### 6 00-7 #### BEVERLEY DODD L ([id number]) [facility] ([facility]) [address] [place] [address] 57291 Creatinine [Mass/Vol] 0.51 mg/dL Normal 0.50-1.05 [facility] Comment on above: Performed By: #### 6 00-7 #### BEVERLEY Poe ([id number]) [facility] ([facility]) [address] [place] [address] GFR/1.73 sq M.predicted MDRD (S/P/Bld) [Vol rate/Area] mL/min/{1.73_m2} Normal >60 [facility] Comment on above: Result Comment: Calc ulations of estimated GFR are performed using the 2020 CKD-EPI Study Refit equation without the race variable for the IDMS-Traceable creatinine methods. https://jasn.asnjournals.org/content/early/ASN.63479 86342 Performed By: #### 6 00-7 #### BEVERLEY Poe ([id number]) [facility] ([facility]) [address] [place] [address] 68572 Glucose [Mass/Vol] 117 mg/dL High 74-99 [facility] Comment on above: Performed By: #### 6 00-7 #### BEVERLEY Poe ([id number]) [facility] ([facility]) [address] [place] [address] 15518 Phosphate [Mass/Vol] 3.0 mg/dL Normal 2.5-4.9 [facility] Comment on above: Result Comment: The performance characteristics of phosphorus testing in heparinized plasma have been validated by the individual laboratory site where testing is performed. Testing on heparinized plasma is not approved by the FDA; however, such approval is not necessary. Performed By: #### 6 00-7 #### BEVERLEY Poe ([id number]) [facility] ([facility]) [address] [place] [address] Potassium [Moles/Vol] 3.9 mmol/L Normal 3.5-5.3 [facility] Comment on above: Performed By: #### 6 00-7 #### BEVERLEY Poe ([id number]) [facility] ([facility]) [address] [place] [address] Sodium [Moles/Vol] 144 mmol/L Normal 136-145 [facility] Comment on above: Performed By: #### 6 00-7 #### BEVERLEY DODD L ([id number]) [facility] ([facility]) [address] [place] [address] 98232 Urea nitrogen [Mass/Vol] 9 mg/dL Normal 6-23 [facility] Comment on above: Performed By: #### 6 00-7 #### BEVERLEY DODD L ([id number]) [facility] ([facility]) [address] [place] [address] 89683 TRANSTHORACIC ECHO (TTE) COM PLETEon 09-20-2023 TRANSTHORACIC ECHO (TTE) COMPLETE [facility]3], [address] [place], [place] [id number] and TRANSTHORACIC ECHOCARDIOGRAM REPORT Patient Name: POLI Head Physician: [id number] Kandi Roberts MD Study Date: 09/20/2023 Ordering Provider: [id number] VARSHA SOTELO MRN/PID: [id number] Fellow: Nurse: Mare Hgigins Date of /Age: 12 1950 Waterproofing Mixer: Muna Clinton RDCS years Gender: F Additional Staff: Height: 165.10 cm Admit Date: 09/15/2023 Weight: 74.84 kg Admission Status: Inpatient - Routine BSA: 1.82 m2 Department Location: [facility] Non Invasive Blood Pressure: 126 /75 mmHg Study Type: TRANSTHORACIC ECHO (TTE) COMPLETE Diagnosis/ICD: Encounter for preprocedural cardiovascular examination-Z01.810 CPT Code: Echo Complete w Full Doppler-28541 Patient History: Pertinent History: Breast cancer, HTN, [...] LA Area A2C: 21.1 cm2 LA Major [place]vue A4C: 5.5 cm LA Major [place] A2C: 5.6 cm AORTA MEASUREMENTS: Normal Ranges: [...] (2.5-4.5cm2) Ao (more content not included)... Normal [facility] US Heart TransthoracicOrdere d By: Kandi Roberts on 09-20-2023 Aortic Valve Area by Continuity of Peak Velocity 1.81 [facility] Work Phone: Aortic Valve Area by Continuity of VTI 2.01 [facility] Work Phone: [phone] AV mn grad 9.0 [facility] Work Phone: [phone] AV pk grad 15.7 [facility] Work Phone: [phone] AV pk abiodun 1.98 [facility] Work Phone: [phone] LA vol index A/L 36.9 [facility] Work Phone: [phone] LV A4C EF 19.0 [facility] Work Phone: [phone] LVIDd 5.70 [facility] Work Phone: [phone] LVOT diam 1.80 [facility] Work Phone: [phone] MV avg E/e' ratio 16.03 [facility] Work Phone: [phone] MV E/A ratio 0.61 [facility] Work Phone: [phone] RV free wall pk S' 14.30 [facility] Work Phone: [phone] Tricuspid annular plane systolic excursion 2.0 [facility] Work Phone: [phone] [facility] Work Phone: US Heart Transthoracicon SYNGO [facility] Work Phone: Bacteria identified Cx Nom ( Bld)on 09-19-2023 Interpretation and review of laboratory results Normal [facility] CBC panel Auto (Bld)on 09-19 Erythrocyte distribution width (RBC) [Ratio] 14.1 % 11.5 - 14.5 % [facility] Hematocrit (Bld) [Volume fraction] 28.2 % Low 36.0 - 46.0 % [facility] Hemoglobin (Bld) [Mass/Vol] 8.4 g/dL Low 12.0 - 16.0 g/dL [facility] Interpretation and review of laboratory results Abnormal [facility] MCH (RBC) [Entitic mass] 30.9 pg 26.0 - 34.0 pg [facility] MCHC (RBC) [Mass/Vol] 29.8 g/dL Low 32.0 - 36.0 g/dL [facility] MCV (RBC) [Entitic vol] 104 fL High 80 - 100 fL [facility] Nucleated RBC/100 WBC (Bld) [Ratio] 0.0 % [facility] Platelets (Bld) [#/Vol] 90 10*3/uL Low [facility] RBC (Bld) [#/Vol] 2.72 10*6/uL [facility] WBC (Bld) [#/Vol] 4.2 10*3/uL [facility] Erythrocyte distribution width (RBC) [Ratio] 14.1 % Normal 11.5-14.5 [facility] Comment on above: Performed By: #### 5 7021-8 #### BEVERLEY Poe ([id number]) [facility] ([facility]) [address] [place] [address] 37134 Hematocrit (Bld) [Volume fraction] 28.2 % Low 36.0-46.0 [facility] Comment on above: Performed By: #### 5 7021-8 #### BEVERLEY Poe ([id number]) [facility] ([facility]) [address] [place] [address] 92077 Hemoglobin (Bld) [Mass/Vol] 8.4 g/dL Low 12.0-16.0 [facility] Comment on above: Performed By: #### 5 7021-8 #### BEVERLEY Poe ([id number]) [facility] ([facility]) [address] [place] [address] 77752 MCH (RBC) [Entitic mass] 30.9 pg Normal 26.0-34.0 [facility] Comment on above: Performed By: #### 5 7021-8 #### BEVERLEY Poe ([id number]) [facility] ([facility]) [address] [place] [address] MCHC (RBC) [Mass/Vol] 29.8 g/dL Low 32.0-36.0 [facility] Comment on above: Performed By: #### 5 7021-8 #### BEVERLEY DODD L ([id number]) [facility] ([facility]) [address] [place] [address] MCV (RBC) [Entitic vol] 104 fL High 80-100 [facility] Comment on above: Performed By: #### 5 7021-8 #### BEVERLEY Poe ([id number]) [facility] ([facility]) [address] [place] [address] 96021 Nucleated RBC/100 WBC (Bld) [Ratio] 0.0 /100 WBCs Normal 0.0-0.0 [facility] Comment on above: Performed By: #### 5 7021-8 #### BEVERLEY Poe ([id number]) [facility] ([facility]) [address] [place] [address] 45191 Platelets (Bld) [#/Vol] 90 x10*3/uL Low 150-450 [facility] Comment on above: Performed By: #### 5 7021-8 #### BEVERLEY DODD L ([id number]) [facility] ([facility]) [address] [place] [address] 74061 RBC (Bld) [#/Vol] 2.72 x10*6/uL Low 4.00-5.20 [facility] Comment on above: Performed By: #### 5 7021-8 #### BEVERLEY VORAMOTZSIDNEY L ([id number]) [facility] ([facility]) [address] [place] [address] 91093 WBC (Bld) [#/Vol] 4.2 x10*3/uL Low 4.4-11.3 [facility] Comment on above: Performed By: #### 5 7021-8 #### BEVERLEY PATELSOCO Poe ([id number]) [facility] ([facility]) [address] [place] [address] CT HEAD WO IV CONTRASTon CT HEAD WO IV CONTRAST Interpreted By: Susy Bright, STUDY: CT HEAD WO IV CONTRAST; 09/19/2023 3:43 pm INDICATION: Signs/Symptoms:R/o subdural hematoma, thrombocytopenia workup (fall several weeks ago). COMPARISON: None. ACCESSION NUMBER(S): [id number] ORDERING CLINICIAN: KANG JULIAN TECHNIQUE: Axial CT [...] Susy Canales 09/19/2023 4:06 PM Dictation workstation: [id number] Normal [facility] CT Head WO contraston 2022 UH MMODAL UH MMODAL [facility] Work Phone: Radiology Study observation (narrative) [facility] Work Phone: CT Head WO contrastOrdered B y: Susy Canales on 09-19-2023 [facility] Work Phone: ECG 12-LEADon 09-19-2023 ECG 12-LEAD Ventricular Rate 104 Atrial Rate 104 P-R Interval 150 QRS Duration 136 Q-T Interval 352 QTC Calculation(Bazett) 462 P Bellevue 67 R Bellevue -54 T Bellevue 70 QRS Count 17 Q Onset 212 P Onset 137 P Offset 193 T Offset 388 QTC Fredericia 422 Diagnosis Sinus tachycardia with occasional Premature ventricular complexes Left bundle branch block Abnormal ECG When compared with ECG of 19-SEP-2023 12:28, (unconfirmed) Premature ventricular complexes are now Present Confirmed by Simon Piedra ([id number]) on 09/27/2023 12:27:49 PM Normal [facility] ECG 12-LEAD Ventricular Rate 96 Atrial Rate 96 P-R Interval 156 QRS Duration 136 Q-T Interval 380 QTC Calculation(Bazett) 480 P Bellevue 61 R Bellevue -49 T [place]vue 77 QRS Count 16 Q Onset 211 P Onset 133 P Offset 197 T Offset 401 QTC Fredericia 444 Diagnosis Sinus rhythm with occasional Premature ventricular complexes Left axis deviation Left bundle branch block Abnormal ECG No previous ECGs available Confirmed by Harrison Piedra ([id number]) on 09/26/2023 9:00:49 AM Normal [facility] Gas panel (BldA)Ordered By: Allyssa Bach on 09-19-2023 Base excess Calc (Bld) [Moles/Vol] 14.9 mmol/L High -2.0 - 3.0 mmol/L [facility] CO2 (Bld) [Partial pressure] 61 mm[Hg] High [facility] HCO3 (Bld) [Moles/Vol] 41.4 mmol/L High 22.0 - 26.0 mmol/L [facility] Inhaled oxygen concentration 28 % [facility] Interpretation and review of laboratory results Abnormal [facility] Oxygen (Bld) [Partial pressure] 121 mm[Hg] High [facility] Oxyhemoglobin (BldA) [Mass fraction] 96.7 % 94.0 - 98.0 % [facility] pH (Bld) 7.44 [pH] High 7.38 - 7.42 pH [facility] Gas panel (BldA)on Base excess Calc (Bld) [Moles/Vol] 14.9 mmol/L High -2.0-3.0 [facility] Comment on above: Order Comment: While on baseline/ home level of oxygen Performed By: #### 6 00-7 #### BEVERLEY [id number]) [facility] ([facility]) [address] [place] [address] CO2 (Bld) [Partial pressure] 61 mm Hg High 38-42 [facility] Comment on above: Order Comment: While on baseline/ home level of oxygen Performed By: #### 6 00-7 #### BEVERLEY DODD L ([id number]) [facility] ([facility]) [address] [place] [address] 20598 HCO3 (Bld) [Moles/Vol] 41.4 mmol/L High 22.0-26.0 [facility] Comment on above: Order Comment: While on baseline/ home level of oxygen Performed By: #### 6 -7 #### BEVERLEY Poe ([id number]) [facility] ([facility]) [address] [place] [address] 62295 Inhaled oxygen concentration 28 % Normal [facility] Comment on above: Order Comment: While on baseline/ home level of oxygen Performed By: #### 6 00-7 #### BEVERLEY DODD L ([id number]) [facility] ([facility]) [address] [place] [address] 85822 Oxygen (Bld) [Partial pressure] 121 mm Hg High 85-95 [facility] Comment on above: Order Comment: While on baseline/ home level of oxygen Performed By: #### 6 -7 #### BEVERLEY Poe ([id number]) [facility] ([facility]) [address] [place] [address] 97982 Oxyhemoglobin (BldA) [Mass fraction] 96.7 % Normal 94.0-98.0 [facility] Comment on above: Order Comment: While on baseline/ home level of oxygen Performed By: #### 6 00-7 #### BEVERLEY PATELTZER L ([id number]) [facility] ([facility]) [address] [place] [address] 08675 pH (Bld) 7.44 [pH] High 7.38-7.42 [facility] Comment on above: Order Comment: While on baseline/ home level of oxygen Performed By: #### 6 00-7 #### BEVERLEY Poe ([id number]) [facility] ([facility]) [address] [place] [address] 14941 Glucose Test strip manual (B ld) [Mass/Vol]on 09-19-2023 Glucose [Mass/Vol] 213 mg/dL High 74-99 [facility] Comment on above: Performed By: #### 6 00-7 #### BEVERLEY Poe ([id number]) [facility] ([facility]) [address] [place] [address] 00935 Glucose [Mass/Vol] 158 mg/dL High 74 - 99 mg/dL [facility] Interpretation and review of laboratory results Abnormal [facility] Glucose [Mass/Vol] 158 mg/dL High 74-99 [facility] Comment on above: Performed By: #### 6 -7 #### BEVERLEY Poe ([id number]) [facility] ([facility]) [address] [place] [address] 88295 Glucose [Mass/Vol] 98 mg/dL 74 - 99 mg/dL [facility] Interpretation and review of laboratory results Normal [facility] Glucose [Mass/Vol] 98 mg/dL Normal 74-99 [facility] Comment on above: Performed By: #### 6 00-7 #### BEVERLEY Poe ([id number]) [facility] ([facility]) [address] [place] [address] 54042 Glucose [Mass/Vol] 111 mg/dL High 74-99 [facility] Comment on above: Performed By: #### 6 00-7 #### BEVERLEY Poe ([id number]) [facility] ([facility]) [address] [place] [address] 36730 Glucose [Mass/Vol] 164 mg/dL High 74 - 99 mg/dL [facility] Interpretation and review of laboratory results Abnormal [facility] Glucose [Mass/Vol] 164 mg/dL High 74-99 [facility] Comment on above: Performed By: #### 5 7021-8 #### BEVERLEY Poe ([id number]) [facility] ([facility]) [address] [place] [address] 27194 Glucose [Mass/Vol] 124 mg/dL High 74 - 99 mg/dL [facility] Interpretation and review of laboratory results Abnormal [facility] Glucose [Mass/Vol] 124 mg/dL High 74-99 [facility] Comment on above: Performed By: #### 5 7021-8 #### BEVERLEY Poe ([id number]) [facility] ([facility]) [address] [place] [address] 85326 HBV surface Ag IA Qlon 09-19 Interpretation and review of laboratory results Normal [facility] Hepatitis B Surface Antigeno n 09-19-2023 HBV surface Ag IA Ql Non-Reactive Nonreactive [facility] - Microbiology an d Antimicrobial susceptibilityon 09-19-2023 Bacteria identified Cx Nom (Bld) No growth at 4 days - FINAL REPORT [facility] Magnesiumon 09-19-2023 Magnesium [Mass/Vol] 2.22 mg/dL 1.60 - 2.40 mg/dL [facility] Magnesium [Mass/Vol] 2.22 mg/dL Normal 1.60-2.40 [facility] Comment on above: Performed By: #### 6 00-7 #### BEVERLYE Poe ([id number]) [facility] ([facility]) [address] [place] [address] 76113 Magnesium [Mass/Vol]on 09-19 Interpretation and review of laboratory results Normal [facility] Natriuretic peptide B [Mass/ Vol]on 09-19-2023 Interpretation and review of laboratory results Abnormal [facility] Natriuretic peptide B (Bld) [Mass/Vol] 154 pg/mL High 0 - 99 pg/mL [facility] Natriuretic peptide B (Bld) [Mass/Vol] 154 pg/mL High 0-99 [facility] Comment on above: Order Comment: <100 pg/mL - Heart failure -459 pg/mL - Intermediate probability of acute heart [...] By: #### 6 00-7 #### BEVERLEY Poe ([id number]) [facility] ([facility]) [address] [place] [address] No Panel Informationon 09-19 Radiology Study observation (narrative) [facility] Work Phone: [facility] PT and aPTT panel Coag (PPP) on 09-19-2023 aPTT Coag (PPP) [Time] 32 s Un [facility] INR Coag (PPP) [Relative time] 1.1 {INR} 0.9 - 1.1 [facility] Interpretation and review of laboratory results Normal [facility] PT Coag (PPP) [Time] 12.3 s [facility] aPTT Coag (PPP) [Time] 32 s Normal 27-38 Un [facility] Comment on above: Order Comment: The A PTT is no longer used for monitoring Unfractionated Heparin Therapy. For monitoring Heparin Therapy, use the Heparin Assay. Performed By: #### 5 7021-8 #### BEVERLEY Poe ([id number]) [facility] ([facility]) [address] [place] [address] 47052 INR Coag (PPP) [Relative time] 1.1 Normal 0.9-1.1 [facility] Comment on above: Order Comment: The A PTT is no longer used for monitoring Unfractionated Heparin Therapy. For monitoring Heparin Therapy, use the Heparin Assay. Performed By: #### 5 7021-8 #### BEVERLEY Poe ([id number]) [facility] ([facility]) [address] [place] [address] PT Coag (PPP) [Time] 12.3 s Normal 9.8-12.8 [facility] Comment on above: Order Comment: The A PTT is no longer used for monitoring Unfractionated Heparin Therapy. For monitoring Heparin Therapy, use the Heparin Assay. Performed By: #### 5 7021-8 #### BEVERLEY Poe ([id number]) [facility] ([facility]) [address] [place] [address] Renal function 2000 panelon 09-19-2023 Albumin BCP dye [Mass/Vol] 2.8 g/dL Low 3.4 - 5.0 g/dL [facility] Anion gap [Moles/Vol] 14 mmol/L 10 - 2 0 mmol/L [facility] Calcium [Mass/Vol] 8.2 mg/dL Low 8.6 - 10. 6 mg/dL [facility] Chloride [Moles/Vol] 101 mmol/L 98 - 10 7 mmol/L [facility] CO2 [Moles/Vol] 35 mmol/L High 21 - 32 mmol/L [facility] Creatinine [Mass/Vol] 0.40 mg/dL Low 0.50 - 1.05 mg/dL [facility] GFR/1.73 sq M.predicted MDRD (S/P/Bld) [Vol rate/Area] - PINF [facility] Glucose [Mass/Vol] 122 mg/dL High 74 - 99 mg/dL [facility] Interpretation and review of laboratory results Abnormal [facility] Phosphate [Mass/Vol] 2.9 mg/dL 2.5 - 4 .9 mg/dL [facility] Potassium [Moles/Vol] 3.9 mmol/L 3.5 - 5.3 mmol/L [facility] Sodium [Moles/Vol] 146 mmol/L High 136 - 145 mmol/L [facility] Urea nitrogen [Mass/Vol] 9 mg/dL 6 - 23 mg/dL [facility] Albumin BCP dye [Mass/Vol] 2.8 g/dL Low 3.4-5.0 [facility] Comment on above: Performed By: #### 6 00-7 #### BEVERLEY Poe ([id number]) [facility] ([facility]) [address] [place] [address] Anion gap [Moles/Vol] 14 mmol/L Normal 10-20 [facility] Comment on above: Performed By: #### 6 00-7 #### BEVERLEY SCHMOTZER L ([id number]) [facility] ([facility]) [address] [place] [address] Calcium [Mass/Vol] 8.2 mg/dL Low 8.6-10.6 [facility] Comment on above: Performed By: #### 6 00-7 #### BEVERLEY SCHMOTZER L ([id number]) [facility] ([facility]) [address] [place] [address] Chloride [Moles/Vol] 101 mmol/L Normal 98-107 [facility] Comment on above: Performed By: #### 6 00-7 #### BEVERLEY SCHMOTZER L ([id number]) [facility] ([facility]) [address] [place] [address] 09844 CO2 [Moles/Vol] 35 mmol/L High 21-32 [facility] Comment on above: Performed By: #### 6 00-7 #### BEVERLEY SCHMOTZER L ([id number]) [facility] ([facility]) [address] [place] [address] 56648 Creatinine [Mass/Vol] 0.40 mg/dL Low 0.50-1.05 [facility] Comment on above: Performed By: #### 6 00-7 #### BEVERLEY SCHMOTZER L ([id number]) [facility] ([facility]) [address] [place] [address] 05095 GFR/1.73 sq M.predicted MDRD (S/P/Bld) [Vol rate/Area] mL/min/{1.73_m2} Normal >60 [facility] Comment on above: Result Comment: Calc ulations of estimated GFR are performed using the 2020 CKD-EPI Study Refit equation without the race variable for the IDMS-Traceable creatinine methods. https://jasn.asnjournals.org/content//ASN.97587 33444 Performed By: #### 6 -7 #### BEVERLEY DODD L ([id number]) [facility] ([facility]) [address] [place] [address] Glucose [Mass/Vol] 122 mg/dL High 74-99 [facility] Comment on above: Performed By: #### 6 -7 #### BEVERLEY VORAMOTZER L ([id number]) [facility] ([facility]) [address] [place] [address] 26795 Phosphate [Mass/Vol] 2.9 mg/dL Normal 2.5-4.9 [facility] Comment on above: Result Comment: The performance characteristics of phosphorus testing in heparinized plasma have been validated by the individual laboratory site where testing is performed. Testing on heparinized plasma is not approved by the FDA; however, such approval is not necessary. Performed By: #### 6 -7 #### BEVERLEY DODD L ([id number]) [facility] ([facility]) [address] [place] [address] 11929 Potassium [Moles/Vol] 3.9 mmol/L Normal 3.5-5.3 [facility] Comment on above: Performed By: #### 6 -7 #### BEVERLEY VORAMOTZER L ([id number]) [facility] ([facility]) [address] [place] [address] 84864 Sodium [Moles/Vol] 146 mmol/L High 136-145 [facility] Comment on above: Performed By: #### 6 -7 #### BEVERLEY VORAMOSOCO L ([id number]) [facility] ([facility]) [address] [place] [address] 07175 Urea nitrogen [Mass/Vol] 9 mg/dL Normal 6-23 [facility] Comment on above: Performed By: #### 6 00-7 #### BEVERLEY VORAMOTZER L ([id number]) [facility] ([facility]) [address] [place] [address] 84313 US ABDOMEN LIMITED LIVERon 1 11-19-2022 US ABDOMEN LIMITED LIVER Interpreted By: Steven Chacon, and Kim Sheikh STUDY: US ABDOMEN LIMITED LIVER; VASC US ABDOMINAL/PELVIC DUPLEX COMPLETE; 09/19/2023 6:30 pm INDICATION: 72 y/o F with Signs/Symptoms:Throbocyto penia workup; Signs/Symptoms:per doctor request. COMPARISON: None. ACCESSION NUMBER(S): [id number]; [id number] ORDERING CLINICIAN: KANG JULIAN TECHNIQUE: Multiple images of the right upper quadrant were obtained. Gates scale, color Doppler and spectral Doppler waveform analysis was performed. This examination was interpreted at [facility]. FINDINGS: The liver measures 22.6 cm and [...] as stated. This study was interpreted at [place], [place]. MACRO: None Signed by: Steven Chacon 09/20/2023 5:44 AM Dictation workstation: [id number] Normal [facility] Comment on above: Order Comment: Pleas e include portal vein flow velocitys VAS US ABDOMINAL/PELVIC DUP SRINATH COMPLETEon 09-19-2023 VAS US ABDOMINAL/PELVIC DUPLEX COMPLETE Interpreted By: Steven Chacon, and Kim Sheikh STUDY: US ABDOMEN LIMITED LIVER; VASC US ABDOMINAL/PELVIC DUPLEX COMPLETE; 09/19/2023 6:30 pm INDICATION: 72 y/o F with Signs/Symptoms:Throbocyto penia workup; Signs/Symptoms:per doctor request. COMPARISON: None. ACCESSION NUMBER(S): [id number]; [id number] ORDERING CLINICIAN: KANG JULIAN TECHNIQUE: Multiple images of the right upper quadrant were obtained. Gates scale, color Doppler and spectral Doppler waveform analysis was performed. This examination was interpreted at [facility]. FINDINGS: The liver measures 22.6 cm and [...] as stated. This study was interpreted at [place], [place]. MACRO: None Signed by: Steven Chacon 09/20/2023 5:44 AM Dictation workstation: [id number] Normal [facility] Comment on above: Order Comment: Pleas e include portal vein flow velocitys XR CHEST 1 VIEWon 09-19-2023 XR CHEST 1 VIEW Interpreted By: Delfin Clemens and [place] Lesley STUDY: XR CHEST 1 VIEW; 09/19/2023 8:46 am INDICATION: Signs/Symptoms:copd on oxygen. COMPARISON: Outside hospital CT chest 03/20/2014 ACCESSION NUMBER(S): [id number] ORDERING CLINICIAN: RIMA APPLE FINDINGS: Single AP [...] as stated. This study was interpreted at [facility], [place], [place]. MACRO: None Signed by: Delfin Menezes 09/19/2023 9:36 AM Dictation workstation: [id number] Normal [facility] XR Chest Single viewon 09-19 UH MMODAL UH MMODAL [facility] Work Phone: Radiology Study observation (narrative) [facility] Work Phone: XR Chest Single viewOrdered By: Delfin Menezes on 09-19-2023 [facility] Work Phone: CBC panel Auto (Bld)on 09-18 Erythrocyte distribution width (RBC) [Ratio] 13.8 % 11.5 - 14.5 % [facility] Hematocrit (Bld) [Volume fraction] 26.9 % Low 36.0 - 46.0 % [facility] Hemoglobin (Bld) [Mass/Vol] 8.0 g/dL Low 12.0 - 16.0 g/dL [facility] Interpretation and review of laboratory results Abnormal [facility] MCH (RBC) [Entitic mass] 30.3 pg 26.0 - 34.0 pg [facility] MCHC (RBC) [Mass/Vol] 29.7 g/dL Low 32.0 - 36.0 g/dL [facility] MCV (RBC) [Entitic vol] 102 fL High 80 - 100 fL [facility] Nucleated RBC/100 WBC (Bld) [Ratio] 0.0 % [facility] Platelets (Bld) [#/Vol] 91 10*3/uL Low [facility] RBC (Bld) [#/Vol] 2.64 10*6/uL [facility] WBC (Bld) [#/Vol] 4.2 10*3/uL Low [facility] Erythrocyte distribution width (RBC) [Ratio] 13.8 % Normal 11.5-14.5 [facility] Comment on above: Performed By: #### 2 4323-8 #### BEVERLEY Poe ([id number]) [facility] ([facility]) [address] [place] [address] 16312 Hematocrit (Bld) [Volume fraction] 26.9 % Low 36.0-46.0 [facility] Comment on above: Performed By: #### 2 4323-8 #### BEVERLEY Poe ([id number]) [facility] ([facility]) [address] [place] [address] 63702 Hemoglobin (Bld) [Mass/Vol] 8.0 g/dL Low 12.0-16.0 [facility] Comment on above: Performed By: #### 2 4323-8 #### BEVERLEY Poe ([id number]) [facility] ([facility]) [address] [place] [address] 33010 MCH (RBC) [Entitic mass] 30.3 pg Normal 26.0-34.0 [facility] Comment on above: Performed By: #### 2 4323-8 #### BEVERLEY Poe ([id number]) [facility] ([facility]) [address] [place] [address] 33741 MCHC (RBC) [Mass/Vol] 29.7 g/dL Low 32.0-36.0 [facility] Comment on above: Performed By: #### 2 4323-8 #### BEVERLEY Poe ([id number]) [facility] ([facility]) [address] [place] [address] 08271 MCV (RBC) [Entitic vol] 102 fL High 80-100 [facility] Comment on above: Performed By: #### 2 4323-8 #### BEVERLEY Poe ([id number]) [facility] ([facility]) [address] [place] [address] 79964 Nucleated RBC/100 WBC (Bld) [Ratio] 0.0 /100 WBCs Normal 0.0-0.0 [facility] Comment on above: Performed By: #### 2 4323-8 #### BEVERLEY Poe ([id number]) [facility] ([facility]) [address] [place] [address] 29474 Platelets (Bld) [#/Vol] 91 x10*3/uL Low 150-450 [facility] Comment on above: Performed By: #### 2 4323-8 #### BEVERLEY Poe ([id number]) [facility] ([facility]) [address] [place] [address] 60202 RBC (Bld) [#/Vol] 2.64 x10*6/uL Low 4.00-5.20 [facility] Comment on above: Performed By: #### 2 4323-8 #### BEVERLEY Poe ([id number]) [facility] ([facility]) [address] [place] [address] 22237 WBC (Bld) [#/Vol] 4.2 x10*3/uL Low 4.4-11.3 [facility] Comment on above: Performed By: #### 2 4323-8 #### BEVERLEY Poe ([id number]) [facility] ([facility]) [address] [place] [address] 72861 Cancer Ag 125on 09-18-2023 Cancer Ag 125 Qn 22.0 [arb'U]/mL Normal 0.0-30.2 [facility] Comment on above: Order Comment: CA 12 5 testing is performed by chemiluminescent immunoassay using the [employer]. Values obtained with different analytic methods cannot [...] By: #### 3 4532-2 #### BEVERLEY Poe ([id number]) [facility] [address] [place] [address] 53207 Ferritinon 09-18-2023 Ferritin [Mass/Vol] 344 ng/mL High 8 - 150 ng/mL [facility] Ferritin [Mass/Vol] 344 ng/mL High 8-150 [facility] Comment on above: Performed By: #### 5 7021-8 #### BEVERLEY Poe ([id number]) [facility] ([facility]) [address] [place] [address] 35355 Glucose Test strip manual (B ld) [Mass/Vol]on 09-18-2023 Glucose [Mass/Vol] 119 mg/dL High 74 - 99 mg/dL [facility] Interpretation and review of laboratory results Abnormal [facility] Glucose [Mass/Vol] 119 mg/dL High 74-99 [facility] Comment on above: Performed By: #### 5 7021-8 #### BEVERLEY Poe ([id number]) [facility] ([facility]) [address] [place] [address] 44451 Glucose [Mass/Vol] 135 mg/dL High 74 - 99 mg/dL [facility] Interpretation and review of laboratory results Abnormal [facility] Glucose [Mass/Vol] 135 mg/dL High 74-99 [facility] Comment on above: Performed By: #### 2 4323-8 #### BEVERLEY Poe ([id number]) [facility] ([facility]) [address] [place] [address] 75818 Glucose [Mass/Vol] 108 mg/dL High 74 - 99 mg/dL [facility] Interpretation and review of laboratory results Abnormal [facility] Glucose [Mass/Vol] 108 mg/dL High 74-99 [facility] Comment on above: Performed By: #### 2 4323-8 #### BEVERLEY Poe ([id number]) [facility] ([facility]) [address] [place] [address] 60901 HbA1c (Bld) [Mass fraction]o n 09-18-2023 Average glucose Estimated from glycated hemoglobin (Bld) [Mass/Vol] 91 mg/dL Not Established [facility] Average glucose Estimated from glycated hemoglobin (Bld) [Mass/Vol] 91 mg/dL Normal Not Established [facility] Comment on above: Order Comment: Diagn osis of Vvjwhyzr-UnwmiyTjf-Lkfnkjvi: < or = 5.6%Increased risk for developing diabetes: 5.7-6.4%Diagnostic of diabetes: > or = 6.5%Monitoring of DiabetesAge (y)....................... Therapeutic Goal (%)Adults: >18.........................<7.0Pediatrics: 13-18...................<7.5Pediatrics: 7-12....................<8.0Pediatrics: 0-6..................... 7.5-8.5[facility] Diabetes Association. Diabetes Care 33(S1), Nov 2009 Performed By: #### 2 4323-8 #### BEVERLEY Poe ([id number]) [facility] ([facility]) [address] [place] [address] Hemoglobin A1con 09-18-2023 HbA1c (Bld) [Mass fraction] 4.8 % see below [facility] Hemoglobin A1c/Hemoglobin.to daphne 09-18-2023 HbA1c (Bld) [Mass fraction] 4.8 % Normal see below [facility] Comment on above: Order Comment: Diagn osis of Jgfqqiry-HdkgxqRnt-Mmfmagbd: < or = 5.6%Increased risk for developing diabetes: 5.7-6.4%Diagnostic of diabetes: > or = 6.5%Monitoring of DiabetesAge (y)....................... Therapeutic Goal (%)Adults: >18.........................<7.0Pediatrics: 13-18...................<7.5Pediatrics: 7-12....................<8.0Pediatrics: 0-6..................... 7.5-8.5[facility] Diabetes Association. Diabetes Care 33(S1), Nov 2009 Performed By: #### 2 4323-8 #### BEVERLEY Poe ([id number]) [facility] ([facility]) [address] [place] [address] Hepatic function 2000 panelo n 09-18-2023 Albumin BCP dye [Mass/Vol] 2.7 g/dL Low 3.4 - 5.0 g/dL [facility] ALP [Catalytic activity/Vol] 47 U/L 33 - 136 U/L [facility] ALT With P-5'-P [Catalytic activity/Vol] 7 U/L 7 - 45 U/L [facility] AST With P-5'-P [Catalytic activity/Vol] 10 U/L 9 - 39 U/L [facility] Bilirubin [Mass/Vol] 0.4 mg/dL 0.0 - 1 .2 mg/dL [facility] Bilirubin.direct [Mass/Vol] 0.1 mg/dL 0.0 - 0.3 mg/dL [facility] Interpretation and review of laboratory results Abnormal [facility] Protein [Mass/Vol] 5.7 g/dL Low 6.4 - 8.2 g/dL [facility] Albumin BCP dye [Mass/Vol] 2.7 g/dL Low 3.4-5.0 [facility] Comment on above: Performed By: #### 2 4323-8 #### BEVERLEY Poe ([id number]) [facility] ([facility]) [address] [place] [address] ALP [Catalytic activity/Vol] 47 U/L Normal 33-136 [facility] Comment on above: Performed By: #### 2 4323-8 #### BEVERLEY Poe ([id number]) [facility] ([facility]) [address] [place] [address] ALT With P-5'-P [Catalytic activity/Vol] 7 U/L Normal 7-45 [facility] Comment on above: Result Comment: Ирина ents treated with Sulfasalazine may generate falsely decreased results for ALT. Performed By: #### 2 4323-8 #### BEVERLEY Poe ([id number]) [facility] ([facility]) [address] [place] [address] AST With P-5'-P [Catalytic activity/Vol] 10 U/L Normal 9-39 [facility] Comment on above: Performed By: #### 2 4323-8 #### BEVERLEY Poe ([id number]) [facility] ([facility]) [address] [place] [address] 72289 Bilirubin [Mass/Vol] 0.4 mg/dL Normal 0.0-1.2 [facility] Comment on above: Performed By: #### 2 4323-8 #### BEVERLEY Poe ([id number]) [facility] ([facility]) [address] [place] [address] 95516 Bilirubin.direct [Mass/Vol] 0.1 mg/dL Normal 0.0-0.3 [facility] Comment on above: Performed By: #### 2 4323-8 #### BEVERLEY Poe ([id number]) [facility] ([facility]) [address] [place] [address] 57930 Protein [Mass/Vol] 5.7 g/dL Low 6.4-8.2 [facility] Comment on above: Performed By: #### 2 4323-8 #### BEVERLEY Poe ([id number]) [facility] ([facility]) [address] [place] [address] 72877 Hepatitis B virus surface Ag on 09-18-2023 HBV surface Ag IA Ql Non-Reactive Normal Nonreactive [facility] Comment on above: Result Comment: Biot in interference may cause falsely decreased results. Patients taking a Biotin dose of up to 5 mg/day should refrain from taking Biotin for 24 hours before sample collection. Providers may contact their local laboratory for further information. Performed By: #### 6 00-7 #### BEVERLEY Poe ([id number]) [facility] ([facility]) [address] [place], [place] [id number] Iron and Iron binding capaci ty panelon 09-18-2023 Iron [Mass/Vol] 33 ug/dL Low 35 - 150 ug/dL [facility] Iron binding capacity [Mass/Vol] 164 ug/dL Low 240 - 445 ug/dL [facility] Iron binding capacity.unsaturated [Mass/Vol] 131 ug/dL 110 - 370 ug/dL [facility] Iron saturation [Mass fraction] 20 % Low 25 - 45 % [facility] Iron [Mass/Vol] 33 ug/dL Low 35-150 [facility] Comment on above: Performed By: #### 5 7021-8 #### BEVERLEY Poe ([id number]) [facility] ([facility]) [address] [place] [address] 31766 Iron binding capacity [Mass/Vol] 164 ug/dL Low 240-445 [facility] Comment on above: Performed By: #### 5 7021-8 #### BEVERLEY Poe ([id number]) [facility] ([facility]) [address] [place] [address] 03863 Iron binding capacity.unsaturated [Mass/Vol] 131 ug/dL Normal 110-370 [facility] Comment on above: Performed By: #### 5 7021-8 #### BEVERLEY Poe ([id number]) [facility] ([facility]) [address] [place] [address] 71105 Iron saturation [Mass fraction] 20 % Low 25-45 [facility] Comment on above: Performed By: #### 5 7021-8 #### BEVERLEY Poe ([id number]) [facility] ([facility]) [address] [place] [address] 55297 Magnesiumon 09-18-2023 Magnesium [Mass/Vol] 1.80 mg/dL 1.60 - 2.40 mg/dL [facility] Magnesium [Mass/Vol] 1.80 mg/dL Normal 1.60-2.40 [facility] Comment on above: Performed By: #### 2 4323-8 #### BEVERLEY Poe ([id number]) [facility] ([facility]) [address] [place] [address] 19100 Magnesium [Mass/Vol]on 09-18 Interpretation and review of laboratory results Normal [facility] Natriuretic peptide B [Mass/ Vol]on 09-18-2023 Interpretation and review of laboratory results Abnormal [facility] Natriuretic peptide B (Bld) [Mass/Vol] 144 pg/mL High 0 - 99 pg/mL [facility] Natriuretic peptide B (Bld) [Mass/Vol] 144 pg/mL High 0-99 [facility] Comment on above: Order Comment: <100 pg/mL - Heart failure [id number] pg/mL - Intermediate probability of acute heart [...] By: #### 5 7021-8 #### BEVERLEY Poe ([id number]) [facility] ([facility]) [address] [place] [address] 06592 No Panel Informationon 09-18 Interpretation and review of laboratory results Abnormal [facility] Prealbuminon 09-18-2023 Prealbumin [Mass/Vol] 11.4 mg/dL Low 18.0 - 40.0 mg/dL [facility] Prealbumin [Mass/Vol] 11.4 mg/dL Low 18.0-40.0 [facility] Comment on above: Performed By: #### 5 7021-8 #### BEVERLEY Poe ([id number]) [facility] ([facility]) [address] [place] [address] 70019 Prealbumin [Mass/Vol]on Interpretation and review of laboratory results Abnormal [facility] Renal function 2000 panelon 09-18-2023 Albumin BCP dye [Mass/Vol] 2.8 g/dL Low 3.4 - 5.0 g/dL [facility] Anion gap [Moles/Vol] 12 mmol/L 10 - 2 0 mmol/L [facility] Calcium [Mass/Vol] 8.6 mg/dL 8.6 - 10. 6 mg/dL [facility] Chloride [Moles/Vol] 99 mmol/L 98 - 10 7 mmol/L [facility] CO2 [Moles/Vol] 39 mmol/L High 21 - 32 mmol/L [facility] Creatinine [Mass/Vol] 0.37 mg/dL Low 0.50 - 1.05 mg/dL [facility] [facility] GFR/1.73 sq M.predicted MDRD (S/P/Bld) [Vol rate/Area] - PINF [facility] Glucose [Mass/Vol] 99 mg/dL 74 - 99 mg/dL [facility] Interpretation and review of laboratory results Abnormal [facility] Phosphate [Mass/Vol] 2.8 mg/dL 2.5 - 4 .9 mg/dL [facility] Potassium [Moles/Vol] 3.6 mmol/L 3.5 - 5.3 mmol/L [facility] Sodium [Moles/Vol] 146 mmol/L High 136 - 145 mmol/L [facility] Urea nitrogen [Mass/Vol] 11 mg/dL 6 - 23 mg/dL [facility] Albumin BCP dye [Mass/Vol] 2.8 g/dL Low 3.4-5.0 [facility] Comment on above: Performed By: #### 2 4323-8 #### BEVERLEY Poe ([id number]) [facility] ([facility]) [address] [place] [address] 11415 Anion gap [Moles/Vol] 12 mmol/L Normal 10-20 [facility] Comment on above: Performed By: #### 2 4323-8 #### BEVERLEY Poe ([id number]) [facility] ([facility]) [address] [place] [address] 46144 Calcium [Mass/Vol] 8.6 mg/dL Normal 8.6-10.6 [facility] Comment on above: Performed By: #### 2 4323-8 #### BEVERLEY Poe ([id number]) [facility] ([facility]) [address] [place] [address] Chloride [Moles/Vol] 99 mmol/L Normal 98-107 [facility] Comment on above: Performed By: #### 2 4323-8 #### BEVERLEY Poe ([id number]) [facility] ([facility]) [address] [place] [address] CO2 [Moles/Vol] 39 mmol/L High 21-32 [facility] Comment on above: Performed By: #### 2 4323-8 #### BEVERLEY Poe ([id number]) [facility] ([facility]) [address] [place] [address] Creatinine [Mass/Vol] 0.37 mg/dL Low 0.50-1.05 [facility] Comment on above: Performed By: #### 2 4323-8 #### BEVERLEY Poe ([id number]) [facility] ([facility]) [address] [place] [address] GFR/1.73 sq M.predicted MDRD (S/P/Bld) [Vol rate/Area] mL/min/{1.73_m2} Normal >60 [facility] Comment on above: Result Comment: Calc ulations of estimated GFR are performed using the 2020 CKD-EPI Study Refit equation without the race variable for the IDMS-Traceable creatinine methods. https://jasn.asnjournals.org/content//ASN.87968 99729 Performed By: #### 2 4323-8 #### BEVERLEY Poe ([id number]) [facility] ([facility]) [address] [place] [address] Glucose [Mass/Vol] 99 mg/dL Normal 74-99 [facility] Comment on above: Performed By: #### 2 4323-8 #### BEVERLEY Poe ([id number]) [facility] ([facility]) [address] [place] [address] Phosphate [Mass/Vol] 2.8 mg/dL Normal 2.5-4.9 [facility] Comment on above: Result Comment: The performance characteristics of phosphorus testing in heparinized plasma have been validated by the individual laboratory site where testing is performed. Testing on heparinized plasma is not approved by the FDA; however, such approval is not necessary. Performed By: #### 2 4323-8 #### BEVERLEY Poe ([id number]) [facility] ([facility]) [address] [place] [address] Potassium [Moles/Vol] 3.6 mmol/L Normal 3.5-5.3 [facility] Comment on above: Performed By: #### 2 4323-8 #### BEVERLEY Poe ([id number]) [facility] ([facility]) [address] [place] [address] 12448 Sodium [Moles/Vol] 146 mmol/L High 136-145 [facility] Comment on above: Performed By: #### 2 4323-8 #### BEVERLEY Poe ([id number]) [facility] ([facility]) [address] [place] [address] 54046 Urea nitrogen [Mass/Vol] 11 mg/dL Normal 6-23 [facility] Comment on above: Performed By: #### 2 4323-8 #### BEVERLEY Poe ([id number]) [facility] ([facility]) [address] [place] [address] 26882 CBC panel Auto (Bld)on 09-17 Erythrocyte distribution width (RBC) [Ratio] 13.8 % 11.5 - 14.5 % [facility] Hematocrit (Bld) [Volume fraction] 27.0 % Low 36.0 - 46.0 % [facility] Hemoglobin (Bld) [Mass/Vol] 8.2 g/dL Low 12.0 - 16.0 g/dL [facility] Interpretation and review of laboratory results Abnormal [facility] MCH (RBC) [Entitic mass] 30.6 pg 26.0 - 34.0 pg [facility] MCHC (RBC) [Mass/Vol] 30.4 g/dL Low 32.0 - 36.0 g/dL [facility] MCV (RBC) [Entitic vol] 101 fL High 80 - 100 fL [facility] Nucleated RBC/100 WBC (Bld) [Ratio] 0.0 % [facility] Platelets (Bld) [#/Vol] 88 10*3/uL Low [facility] RBC (Bld) [#/Vol] 2.68 10*6/uL [facility] WBC (Bld) [#/Vol] 3.7 10*3/uL [facility] Erythrocyte distribution width (RBC) [Ratio] 13.8 % Normal 11.5-14.5 [facility] Comment on above: Performed By: #### 1 9123-9 #### BEVERLEY Poe ([id number]) [facility] ([facility]) [address] [place] [address] 27257 Hematocrit (Bld) [Volume fraction] 27.0 % Low 36.0-46.0 [facility] Comment on above: Performed By: #### 1 9123-9 #### BEVERLEY Poe ([id number]) [facility] ([facility]) [address] [place] [address] 71873 Hemoglobin (Bld) [Mass/Vol] 8.2 g/dL Low 12.0-16.0 [facility] Comment on above: Performed By: #### 1 9123-9 #### BEVERLEY Poe ([id number]) [facility] ([facility]) [address] [place] [address] 88061 MCH (RBC) [Entitic mass] 30.6 pg Normal 26.0-34.0 [facility] Comment on above: Performed By: #### 1 9123-9 #### BEVERLEY Poe ([id number]) [facility] ([facility]) [address] [place] [address] MCHC (RBC) [Mass/Vol] 30.4 g/dL Low 32.0-36.0 [facility] Comment on above: Performed By: #### 1 9123-9 #### BEVERLEY Poe ([id number]) [facility] ([facility]) [address] [place] [address] 51796 MCV (RBC) [Entitic vol] 101 fL High 80-100 [facility] Comment on above: Performed By: #### 1 9123-9 #### BEVERLEY Poe ([id number]) [facility] ([facility]) [address] [place] [address] 33543 Nucleated RBC/100 WBC (Bld) [Ratio] 0.0 /100 WBCs Normal 0.0-0.0 [facility] Comment on above: Performed By: #### 1 9123-9 #### BEVERLEY Poe ([id number]) [facility] ([facility]) [address] [place] [address] 00528 Platelets (Bld) [#/Vol] 88 x10*3/uL Low 150-450 [facility] Comment on above: Performed By: #### 1 9123-9 #### BEVERLEY Poe ([id number]) [facility] ([facility]) [address] [place] [address] 31419 RBC (Bld) [#/Vol] 2.68 x10*6/uL Low 4.00-5.20 [facility] Comment on above: Performed By: #### 1 9123-9 #### BEVERLEY Poe ([id number]) [facility] ([facility]) [address] [place] [address] 37426 WBC (Bld) [#/Vol] 3.7 x10*3/uL Low 4.4-11.3 [facility] Comment on above: Performed By: #### 1 9123-9 #### BEVERLEY Poe ([id number]) [facility] ([facility]) [address] [place] [address] 19809 Glucose Test strip manual (B ld) [Mass/Vol]on 09-17-2023 Glucose [Mass/Vol] 142 mg/dL High 74 - 99 mg/dL [facility] Interpretation and review of laboratory results Abnormal [facility] Glucose [Mass/Vol] 142 mg/dL High 74-99 [facility] Comment on above: Performed By: #### 2 4323-8 #### BEVERLEY Poe ([id number]) [facility] ([facility]) [address] [place] [address] 34799 Glucose [Mass/Vol] 117 mg/dL High 74 - 99 mg/dL [facility] Interpretation and review of laboratory results Abnormal [facility] Glucose [Mass/Vol] 117 mg/dL High 74-99 [facility] Comment on above: Performed By: #### 2 4323-8 #### BEVERLEY Poe ([id number]) [facility] ([facility]) [address] [place] [address] 12102 Glucose [Mass/Vol] 138 mg/dL High 74 - 99 mg/dL [facility] Interpretation and review of laboratory results Abnormal [facility] Glucose [Mass/Vol] 138 mg/dL High 74-99 [facility] Comment on above: Performed By: #### 2 4323-8 #### BEVERLEY Poe ([id number]) [facility] ([facility]) [address] [place] [address] 28853 Glucose [Mass/Vol] 96 mg/dL 74 - 99 mg/dL [facility] Interpretation and review of laboratory results Normal [facility] Glucose [Mass/Vol] 96 mg/dL Normal 74-99 [facility] Comment on above: Performed By: #### 1 9123-9 #### BEVERLEY Poe ([id number]) [facility] ([facility]) [address] [place] [address] 12360 Magnesiumon 09-17-2023 Magnesium [Mass/Vol] 2.00 mg/dL 1.60 - 2.40 mg/dL [facility] Magnesium [Mass/Vol] 2.00 mg/dL Normal 1.60-2.40 [facility] Comment on above: Performed By: #### 1 9123-9 #### BEVERLEY Poe ([id number]) [facility] ([facility]) [address] [place] [address] Magnesium [Mass/Vol]on 09-17 Interpretation and review of laboratory results Normal [facility] No Panel Informationon 09-17 [facility] Renal function 2000 panelon 09-17-2023 Albumin BCP dye [Mass/Vol] 2.9 g/dL Low 3.4 - 5.0 g/dL [facility] Anion gap [Moles/Vol] 11 mmol/L 10 - 2 0 mmol/L [facility] Calcium [Mass/Vol] 8.7 mg/dL 8.6 - 10. 6 mg/dL [facility] Chloride [Moles/Vol] 100 mmol/L 98 - 10 7 mmol/L [facility] CO2 [Moles/Vol] 40 mmol/L Critically high 21 - 32 mmol/L [facility] Creatinine [Mass/Vol] 0.32 mg/dL Low 0.50 - 1.05 mg/dL [facility] GFR/1.73 sq M.predicted MDRD (S/P/Bld) [Vol rate/Area] - PINF [facility] Glucose [Mass/Vol] 95 mg/dL 74 - 99 mg/dL [facility] Interpretation and review of laboratory results Abnormal [facility] Phosphate [Mass/Vol] 3.8 mg/dL 2.5 - 4 .9 mg/dL [facility] Potassium [Moles/Vol] 3.8 mmol/L 3.5 - 5.3 mmol/L [facility] Sodium [Moles/Vol] 147 mmol/L High 136 - 145 mmol/L [facility] Urea nitrogen [Mass/Vol] 10 mg/dL 6 - 23 mg/dL [facility] Albumin BCP dye [Mass/Vol] 2.9 g/dL Low 3.4-5.0 [facility] Comment on above: Performed By: #### 1 9123-9 #### BEVERLEY Poe ([id number]) [facility] ([facility]) [address] [place] [address] Anion gap [Moles/Vol] 11 mmol/L Normal 10-20 [facility] Comment on above: Performed By: #### 1 9123-9 #### BEVERLEY Poe ([id number]) [facility] ([facility]) [address] [place] [address] Calcium [Mass/Vol] 8.7 mg/dL Normal 8.6-10.6 [facility] Comment on above: Performed By: #### 1 9123-9 #### BEVERLEY Poe ([id number]) [facility] ([facility]) [address] [place] [address] 98274 Chloride [Moles/Vol] 100 mmol/L Normal 98-107 [facility] Comment on above: Performed By: #### 1 9123-9 #### BEVERLEY Poe ([id number]) [facility] ([facility]) [address] [place] [address] 03340 CO2 [Moles/Vol] 40 mmol/L Critically high 21-32 [facility] Comment on above: Performed By: #### 1 9123-9 #### BEVERLEY Poe ([id number]) [facility] ([facility]) [address] [place] [address] 73995 Creatinine [Mass/Vol] 0.32 mg/dL Low 0.50-1.05 [facility] Comment on above: Performed By: #### 1 9123-9 #### BEVERLEY DODD L ([id number]) [facility] ([facility]) [address] [place] [address] 04071 GFR/1.73 sq M.predicted MDRD (S/P/Bld) [Vol rate/Area] mL/min/{1.73_m2} Normal >60 [facility] Comment on above: Result Comment: Calc ulations of estimated GFR are performed using the 2020 CKD-EPI Study Refit equation without the race variable for the IDMS-Traceable creatinine methods. https://jasn.asnjournals.org/content//ASN.68483 66020 Performed By: #### 1 9123-9 #### BEVERLEY Poe ([id number]) [facility] ([facility]) [address] [place] [address] Glucose [Mass/Vol] 95 mg/dL Normal 74-99 [facility] Comment on above: Performed By: #### 1 9123-9 #### BEVERLEY DODD L ([id number]) [facility] ([facility]) [address] [place] [address] Phosphate [Mass/Vol] 3.8 mg/dL Normal 2.5-4.9 [facility] Comment on above: Result Comment: The performance characteristics of phosphorus testing in heparinized plasma have been validated by the individual laboratory site where testing is performed. Testing on heparinized plasma is not approved by the FDA; however, such approval is not necessary. Performed By: #### 1 9123-9 #### BEVERLEY Poe ([id number]) [facility] ([facility]) [address] [place] [address] Potassium [Moles/Vol] 3.8 mmol/L Normal 3.5-5.3 [facility] Comment on above: Performed By: #### 1 9123-9 #### BEVERLEY DODD L ([id number]) [facility] ([facility]) [address] [place] [address] Sodium [Moles/Vol] 147 mmol/L High 136-145 [facility] Comment on above: Performed By: #### 1 9123-9 #### BEVERLEY DODD L ([id number]) [facility] ([facility]) [address] [place] [address] Urea nitrogen [Mass/Vol] 10 mg/dL Normal 6-23 [facility] Comment on above: Performed By: #### 1 9123-9 #### BEVERLEY VORAMOSOCO L ([id number]) [facility] ([facility]) [address] [place] [address] Blood type and Indirect anti body screen panel (Bld)on 09-16-2023 ABO group Nom (Bld) O [facility] Blood group antibody screen Ql Negative [facility] D Ag Ql (Bld) Positive [facility] CBC panel Auto (Bld)on 09-16 Erythrocyte distribution width (RBC) [Ratio] 13.9 % 11.5 - 14.5 % [facility] Hematocrit (Bld) [Volume fraction] 29.3 % Low 36.0 - 46.0 % [facility] Hemoglobin (Bld) [Mass/Vol] 8.5 g/dL Low 12.0 - 16.0 g/dL [facility] Interpretation and review of laboratory results Abnormal [facility] MCH (RBC) [Entitic mass] 29.9 pg 26.0 - 34.0 pg [facility] MCHC (RBC) [Mass/Vol] 29.0 g/dL Low 32.0 - 36.0 g/dL [facility] MCV (RBC) [Entitic vol] 103 fL High 80 - 100 fL [facility] Nucleated RBC/100 WBC (Bld) [Ratio] 0.0 % [facility] Platelets (Bld) [#/Vol] 93 10*3/uL Low [facility] RBC (Bld) [#/Vol] 2.84 10*6/uL [facility] WBC (Bld) [#/Vol] 3.4 10*3/uL [facility] Erythrocyte distribution width (RBC) [Ratio] 13.9 % Normal 11.5-14.5 [facility] Comment on above: Performed By: #### 1 9723-9 #### BEVERLEY Poe ([id number]) [facility] ([facility]) [address] [place] [id number] Hematocrit (Bld) [Volume fraction] 29.3 % Low 36.0-46.0 [facility] Comment on above: Performed By: #### 1 8323-9 #### BEVERLEY Poe ([id number]) [facility] ([facility]) [address] [place] [address] Hemoglobin (Bld) [Mass/Vol] 8.5 g/dL Low 12.0-16.0 [facility] Comment on above: Performed By: #### 1 9123-9 #### BEVERLEY Poe ([id number]) [facility] ([facility]) [address] [place] [address] MCH (RBC) [Entitic mass] 29.9 pg Normal 26.0-34.0 [facility] Comment on above: Performed By: #### 1 9123-9 #### BEVERLEY Poe ([id number]) [facility] ([facility]) [address] [place] [address] MCHC (RBC) [Mass/Vol] 29.0 g/dL Low 32.0-36.0 [facility] Comment on above: Performed By: #### 1 9123-9 #### BEVERLEY Poe ([id number]) [facility] ([facility]) [address] [place] [address] MCV (RBC) [Entitic vol] 103 fL High 80-100 [facility] Comment on above: Performed By: #### 1 9123-9 #### BEVERLEY Poe ([id number]) [facility] ([facility]) [address] [place] [address] 77197 Nucleated RBC/100 WBC (Bld) [Ratio] 0.0 /100 WBCs Normal 0.0-0.0 [facility] Comment on above: Performed By: #### 1 9123-9 #### BEVERLEY Poe ([id number]) [facility] ([facility]) [address] [place] [address] Platelets (Bld) [#/Vol] 93 x10*3/uL Low 150-450 [facility] Comment on above: Performed By: #### 1 9123-9 #### BEVERLEY Poe ([id number]) [facility] ([facility]) [address] [place] [address] 53036 RBC (Bld) [#/Vol] 2.84 x10*6/uL Low 4.00-5.20 [facility] Comment on above: Performed By: #### 1 9123-9 #### BEVERLEY Poe ([id number]) [facility] ([facility]) [address] [place] [address] 42329 WBC (Bld) [#/Vol] 3.4 x10*3/uL Low 4.4-11.3 [facility] Comment on above: Performed By: #### 1 9123-9 #### BEVERLEY Poe ([id number]) [facility] ([facility]) [address] [place], [place] [phone] Carcinoembryonic Agon 2022 Carcinoembryonic Ag [Mass/Vol] ng/mL Normal [facility] Comment on above: Order Comment: REF V ALUES NONSMOKERS 0-2.5 SMOKERS 0-5.0CEA testing is performed by chemiluminescent immunoassay using the [employer]. Values obtained with different analytic methods cannot [...] By: #### 1 9123-9 #### BEVERLEY Poe ([id number]) [facility] ([facility]) [address] [place] [address] 23943 Carcinoembryonic Ag [Mass/Vo l]on 09-16-2023 [facility] Carcinoembryonic Antigenon 1 11-16-2022 Carcinoembryonic Ag [Mass/Vol] ug/L ug/L [facility] Glucose Test strip manual (B ld) [Mass/Vol]on 09-16-2023 Glucose [Mass/Vol] 96 mg/dL 74 - 99 mg/dL [facility] Interpretation and review of laboratory results Normal [facility] Glucose [Mass/Vol] 96 mg/dL Normal 74-99 [facility] Comment on above: Performed By: #### 1 9123-9 #### BEVERLEY Poe ([id number]) [facility] ([facility]) [address] [place] [address] 84770 Glucose [Mass/Vol] 94 mg/dL 74 - 99 mg/dL [facility] Interpretation and review of laboratory results Normal [facility] Glucose [Mass/Vol] 94 mg/dL Normal 74-99 [facility] Comment on above: Performed By: #### 1 9123-9 #### BEVERLEY Poe ([id number]) [facility] ([facility]) [address] [place] [address] 84637 Glucose [Mass/Vol] 98 mg/dL 74 - 99 mg/dL [facility] Interpretation and review of laboratory results Normal [facility] Glucose [Mass/Vol] 98 mg/dL Normal 74-99 [facility] Comment on above: Performed By: #### 2 341-6 #### BEVERLEY Poe ([id number]) [facility] ([facility]) [address] [place] [address] 47883 Glucose [Mass/Vol] 92 mg/dL 74 - 99 mg/dL [facility] Interpretation and review of laboratory results Normal [facility] Glucose [Mass/Vol] 92 mg/dL Normal 74-99 [facility] Comment on above: Performed By: #### 2 341-6 #### BEVERLEY Poe ([id number]) [facility] ([facility]) [address] [place] [address] 87504 Glucose [Mass/Vol] 88 mg/dL 74 - 99 mg/dL [facility] Interpretation and review of laboratory results Normal [facility] Glucose [Mass/Vol] 88 mg/dL Normal 74-99 [facility] Comment on above: Performed By: #### 2 341-6 #### BEVERLEY Poe ([id number]) [facility] ([facility]) [address] [place] [address] 94235 Magnesiumon 2023 Magnesium [Mass/Vol] 2.04 mg/dL 1.60 - 2.40 mg/dL [facility] Magnesium [Mass/Vol] 2.04 mg/dL Normal 1.60-2.40 [facility] Comment on above: Performed By: #### 1 9123-9 #### BEVERLEY Poe ([id number]) [facility] ([facility]) [address] [place] [address] Magnesium [Mass/Vol]on 09-16 Interpretation and review of laboratory results Normal [facility] No Panel Informationon 09-16 [facility] Renal function 2000 panelon 09-16-2023 Albumin BCP dye [Mass/Vol] 3.0 g/dL Low 3.4 - 5.0 g/dL [facility] Anion gap [Moles/Vol] 10 mmol/L 10 - 2 0 mmol/L [facility] Calcium [Mass/Vol] 8.8 mg/dL 8.6 - 10. 6 mg/dL [facility] Chloride [Moles/Vol] 99 mmol/L 98 - 10 7 mmol/L [facility] CO2 [Moles/Vol] 40 mmol/L Critically high 21 - 32 mmol/L [facility] Creatinine [Mass/Vol] 0.40 mg/dL Low 0.50 - 1.05 mg/dL [facility] GFR/1.73 sq M.predicted MDRD (S/P/Bld) [Vol rate/Area] - PINF [facility] Glucose [Mass/Vol] 88 mg/dL 74 - 99 mg/dL [facility] Interpretation and review of laboratory results Abnormal [facility] Phosphate [Mass/Vol] 3.1 mg/dL 2.5 - 4 .9 mg/dL [facility] Potassium [Moles/Vol] 3.7 mmol/L 3.5 - 5.3 mmol/L [facility] Sodium [Moles/Vol] 145 mmol/L 136 - 145 mmol/L [facility] Urea nitrogen [Mass/Vol] 12 mg/dL 6 - 23 mg/dL [facility] Albumin BCP dye [Mass/Vol] 3.0 g/dL Low 3.4-5.0 [facility] Comment on above: Performed By: #### 1 9123-9 #### BEVERLEY Poe ([id number]) [facility] ([facility]) [address] [place] [address] 85829 Anion gap [Moles/Vol] 10 mmol/L Normal 10-20 [facility] Comment on above: Performed By: #### 1 9123-9 #### BEVERLEY Poe ([id number]) [facility] ([facility]) [address] [place] [address] 92495 Calcium [Mass/Vol] 8.8 mg/dL Normal 8.6-10.6 [facility] Comment on above: Performed By: #### 1 9123-9 #### BEVERLEY Poe ([id number]) [facility] ([facility]) [address] [place] [address] 29518 Chloride [Moles/Vol] 99 mmol/L Normal 98-107 [facility] Comment on above: Performed By: #### 1 9123-9 #### BEVERLEY Poe ([id number]) [facility] ([facility]) [address] [place] [address] 00848 CO2 [Moles/Vol] 40 mmol/L Critically high 21-32 [facility] Comment on above: Performed By: #### 1 9123-9 #### BEVERLEY Poe ([id number]) [facility] ([facility]) [address] [place] [address] 46130 Creatinine [Mass/Vol] 0.40 mg/dL Low 0.50-1.05 [facility] Comment on above: Performed By: #### 1 9123-9 #### BEVERLEY Poe ([id number]) [facility] ([facility]) [address] [place] [address] 95929 GFR/1.73 sq M.predicted MDRD (S/P/Bld) [Vol rate/Area] mL/min/{1.73_m2} Normal >60 [facility] Comment on above: Result Comment: Calc ulations of estimated GFR are performed using the 2020 CKD-EPI Study Refit equation without the race variable for the IDMS-Traceable creatinine methods. https://jasn.asnjournals.org/content/early/ASN.07362 35031 Performed By: #### 1 9123-9 #### BEVERLEY Poe ([id number]) [facility] ([facility]) [address] [place] [address] Glucose [Mass/Vol] 88 mg/dL Normal 74-99 [facility] Comment on above: Performed By: #### 1 9123-9 #### BEVERLEY Poe ([id number]) [facility] ([facility]) [address] [place] [address] 31694 Phosphate [Mass/Vol] 3.1 mg/dL Normal 2.5-4.9 [facility] Comment on above: Result Comment: The performance characteristics of phosphorus testing in heparinized plasma have been validated by the individual laboratory site where testing is performed. Testing on heparinized plasma is not approved by the FDA; however, such approval is not necessary. Performed By: #### 1 9123-9 #### BEVERLEY Poe ([id number]) [facility] ([facility]) [address] [place] [address] Potassium [Moles/Vol] 3.7 mmol/L Normal 3.5-5.3 [facility] Comment on above: Performed By: #### 1 9123-9 #### BEVERLEY Poe ([id number]) [facility] ([facility]) [address] [place] [address] Sodium [Moles/Vol] 145 mmol/L Normal 136-145 [facility] Comment on above: Performed By: #### 1 9123-9 #### BEVERLEY Poe ([id number]) [facility] ([facility]) [address] [place] [address] Urea nitrogen [Mass/Vol] 12 mg/dL Normal 6-23 [facility] Comment on above: Performed By: #### 1 9123-9 #### BEVERLEY Poe ([id number]) [facility] ([facility]) [address] [place], [place] [id number] Bacteria identifiedon 2022 Bacteria identified Cx Nom (Bld) Test: Blood Culture Specimen Source: Peripheral Venipuncture Specimen Type: Blood culture Specimen Date: 09/15/2023 9:24 PM Result Date: 09/19/2023 10:01 PM Result Status: Final result Abnormal: No Resulting Lab: [facility] [address] [place] [address] CULTURE No growth at 4 days - FINAL REPORT [facility] Comment on above: Performed By: #### 6 00-7 #### BEVERLEY Poe ([id number]) [facility] ([facility]) [address] [place] [address] Basophil percentageOrdered B y: Calvin Hester on 09-15-2023 Lactate [Moles/Vol] 0.6 mmol/L 0.4-2.0 [facility] Basophil percentage 10-25 SEEN /hpf 0-5 [facility] Bilirubin Test strip Ql (U)O rdered By: Calvin Hester on 09-15-2023 Bilirubin Ql (U) Negative Negative [facility] Blood type and Indirect anti body screen panel (Bld)on 09-15-2023 ABO group Nom (Bld) O Normal [facility] Comment on above: Performed By: #### 3 4532-2 #### BEVERLEY Poe ([id number]) [facility] ([facility]) [address] [place] [address] Blood group antibody screen Ql Negative [facility] Comment on above: Performed By: #### 3 4532-2 #### BEVERLYE Poe ([id number]) [facility] [address] [place] [address] D Ag Ql (Bld) Positive [facility] Comment on above: Result Comment: 2nd ABO test required. Order and Collect VERAB Performed By: #### 3 4532-2 #### BEVERLEY Poe ([id number]) [facility] [address] [place] [address] CBC W Auto Differential pane l (Bld)on 09-15-2023 Basophils (Bld) [#/Vol] 0.01 10*3/uL [facility] Basophils/100 WBC (Bld) 0.3 % 0.0 - 2.0 % [facility] Eosinophils (Bld) [#/Vol] 0.06 10*3/uL [facility] Eosinophils/100 WBC (Bld) 1.7 % 0.0 - 6.0 % [facility] Erythrocyte distribution width (RBC) [Ratio] 13.9 % 11.5 - 14.5 % [facility] Hematocrit (Bld) [Volume fraction] 27.8 % Low 36.0 - 46.0 % [facility] Hemoglobin (Bld) [Mass/Vol] 7.9 g/dL Low 12.0 - 16.0 g/dL [facility] Immature granulocytes (Bld) [#/Vol] 0.02 10*3/uL [facility] Immature granulocytes/100 WBC (Bld) 0.6 % 0.0 - 0.9 % [facility] Interpretation and review of laboratory results Abnormal [facility] Lymphocytes (Bld) [#/Vol] 0.67 10*3/uL Low [facility] Lymphocytes/100 WBC (Bld) 19.2 % 13.0 - 44.0 % [facility] MCH (RBC) [Entitic mass] 29.8 pg 26.0 - 34.0 pg [facility] MCHC (RBC) [Mass/Vol] 28.4 g/dL Low 32.0 - 36.0 g/dL [facility] MCV (RBC) [Entitic vol] 105 fL High 80 - 100 fL [facility] Monocytes (Bld) [#/Vol] 0.23 10*3/uL [facility] Monocytes/100 WBC (Bld) 6.6 % 2.0 - 10.0 % [facility] Neutrophils (Bld) [#/Vol] 2.50 10*3/uL [facility] Neutrophils/100 WBC (Bld) 71.6 % 40.0 - 80.0 % [facility] Nucleated RBC/100 WBC (Bld) [Ratio] 0.0 % [facility] Platelets (Bld) [#/Vol] 123 10*3/uL Low [facility] RBC (Bld) [#/Vol] 2.65 10*6/uL [facility] WBC (Bld) [#/Vol] 3.5 10*3/uL [facility] Basophils (Bld) [#/Vol] 0.01 x10*3/uL Normal 0.00-0.10 [facility] Comment on above: Performed By: #### 5 7021-8 #### BEVERLEY Poe ([id number]) [facility] ([facility]) [address] [place] [address] Basophils/100 WBC (Bld) 0.3 % Normal 0.0-2.0 [facility] Comment on above: Performed By: #### 5 7021-8 #### BEVERLEY Poe ([id number]) [facility] ([facility]) [address] [place] [address] Eosinophils (Bld) [#/Vol] 0.06 x10*3/uL Normal 0.00-0.40 [facility] Comment on above: Performed By: #### 5 7021-8 #### BEVELREY Poe ([id number]) [facility] ([facility]) [address] [place] [address] Eosinophils/100 WBC (Bld) 1.7 % Normal 0.0-6.0 [facility] Comment on above: Performed By: #### 5 7021-8 #### BEVERLEY Poe ([id number]) [facility] ([facility]) [address] [place] [address] Erythrocyte distribution width (RBC) [Ratio] 13.9 % Normal 11.5-14.5 [facility] Comment on above: Performed By: #### 5 7021-8 #### BEVERLEY Poe ([id number]) [facility] ([facility]) [address] [place] [address] Hematocrit (Bld) [Volume fraction] 27.8 % Low 36.0-46.0 [facility] Comment on above: Performed By: #### 5 7021-8 #### BEVERLEY Poe ([id number]) [facility] ([facility]) [address] [place] [address] Hemoglobin (Bld) [Mass/Vol] 7.9 g/dL Low 12.0-16.0 [facility] Comment on above: Performed By: #### 5 7021-8 #### BEVERLEY Peo ([id number]) [facility] ([facility]) [address] [place] [address] Immature granulocytes (Bld) [#/Vol] 0.02 x10*3/uL Normal 0.00-0.50 [facility] Comment on above: Performed By: #### 5 7021-8 #### BEVERLEY Poe ([id number]) [facility] ([facility]) [address] [place] [address] Immature granulocytes/100 WBC (Bld) 0.6 % Normal 0.0-0.9 [facility] Comment on above: Result Comment: Sharda ture Granulocyte Count (IG) includes promyelocytes, myelocytes and metamyelocytes but does not include bands. Percent differential counts (%) should be interpreted in the context of the absolute cell counts (cells/UL). Performed By: #### 5 7021-8 #### BEVERLEY Poe ([id number]) [facility] ([facility]) [address] [place] [address] Lymphocytes (Bld) [#/Vol] 0.67 x10*3/uL Low 0.80-3.00 [facility] Comment on above: Performed By: #### 5 7021-8 #### BEVERLEY Poe ([id number]) [facility] ([facility]) [address] [place] [address] Lymphocytes/100 WBC (Bld) 19.2 % Normal 13.0-44.0 [facility] Comment on above: Performed By: #### 5 7021-8 #### BEVERLEY Poe ([id number]) [facility] ([facility]) [address] [place] [address] MCH (RBC) [Entitic mass] 29.8 pg Normal 26.0-34.0 [facility] Comment on above: Performed By: #### 5 7021-8 #### BEVERLEY Poe ([id number]) [facility] ([facility]) [address] [place] [address] MCHC (RBC) [Mass/Vol] 28.4 g/dL Low 32.0-36.0 [facility] Comment on above: Performed By: #### 5 7021-8 #### BEVERLEY Poe ([id number]) [facility] ([facility]) [address] [place] [address] MCV (RBC) [Entitic vol] 105 fL High 80-100 [facility] Comment on above: Performed By: #### 5 7021-8 #### BEVERLEY Poe ([id number]) [facility] ([facility]) [address] [place] [address] Monocytes (Bld) [#/Vol] 0.23 x10*3/uL Normal 0.05-0.80 [facility] Comment on above: Performed By: #### 5 7021-8 #### BEVERLEY Poe ([id number]) [facility] ([facility]) [address] [place] [address] Monocytes/100 WBC (Bld) 6.6 % Normal 2.0-10.0 [facility] Comment on above: Performed By: #### 5 7021-8 #### BEVERLEY Poe ([id number]) [facility] ([facility]) [address] [place] [address] Neutrophils (Bld) [#/Vol] 2.50 x10*3/uL Normal 1.60-5.50 [facility] Comment on above: Result Comment: Perc ent differential counts (%) should be interpreted in the context of the absolute cell counts (cells/uL). Performed By: #### 5 7021-8 #### BEVERLEY Poe ([id number]) [facility] ([facility]) [address] [place] [address] Neutrophils/100 WBC (Bld) 71.6 % Normal 40.0-80.0 [facility] Comment on above: Performed By: #### 5 7021-8 #### BEVERLEY Poe ([id number]) [facility] ([facility]) [address] [place] [address]571 Nucleated RBC/100 WBC (Bld) [Ratio] 0.0 /100 WBCs Normal 0.0-0.0 [facility] Comment on above: Performed By: #### 5 7021-8 #### BEVERLEY Poe ([id number]) [facility] ([facility]) [address] [place] [address] Platelets (Bld) [#/Vol] 123 x10*3/uL Low 150-450 [facility] Comment on above: Performed By: #### 5 7021-8 #### BEVERLEY Poe ([id number]) [facility] ([facility]) [address] [place] [address] RBC (Bld) [#/Vol] 2.65 x10*6/uL Low 4.00-5.20 [facility] Comment on above: Performed By: #### 5 7021-8 #### BEVERLEY Poe ([id number]) [facility] ([facility]) [address] [place] [address]67 WBC (Bld) [#/Vol] 3.5 x10*3/uL Low 4.4-11.3 [facility] Comment on above: Performed By: #### 5 7021-8 #### BEVERLEY Poe ([id number]) [facility] ([facility]) [address] [place] [address] Comprehensive metabolic 2000 panelon 09-15-2023 Albumin BCP dye [Mass/Vol] 3.0 g/dL Low 3.4 - 5.0 g/dL [facility] ALP [Catalytic activity/Vol] 47 U/L 33 - 136 U/L [facility] ALT With P-5'-P [Catalytic activity/Vol] 10 U/L 7 - 45 U/L [facility] Anion gap [Moles/Vol] 10 mmol/L 10 - 2 0 mmol/L [facility] AST With P-5'-P [Catalytic activity/Vol] 10 U/L 9 - 39 U/L [facility] Bilirubin [Mass/Vol] 0.6 mg/dL 0.0 - 1 .2 mg/dL [facility] Calcium [Mass/Vol] 8.8 mg/dL 8.6 - 10. 6 mg/dL [facility] Chloride [Moles/Vol] 100 mmol/L 98 - 10 7 mmol/L [facility] CO2 [Moles/Vol] 39 mmol/L High 21 - 32 mmol/L [facility] Creatinine [Mass/Vol] 0.45 mg/dL Low 0.50 - 1.05 mg/dL [facility] GFR/1.73 sq M.predicted MDRD (S/P/Bld) [Vol rate/Area] - PINF [facility] Glucose [Mass/Vol] 88 mg/dL 74 - 99 mg/dL [facility] Interpretation and review of laboratory results Abnormal [facility] Potassium [Moles/Vol] 4.2 mmol/L 3.5 - 5.3 mmol/L [facility] Protein [Mass/Vol] 6.1 g/dL Low 6.4 - 8.2 g/dL [facility] Sodium [Moles/Vol] 145 mmol/L 136 - 145 mmol/L [facility] Urea nitrogen [Mass/Vol] 13 mg/dL 6 - 23 mg/dL [facility] Albumin BCP dye [Mass/Vol] 3.0 g/dL Low 3.4-5.0 [facility] Comment on above: Performed By: #### 2 4323-8 #### BEVERLEY Poe ([id number]) [facility] ([facility]) [address] [place] [address] ALP [Catalytic activity/Vol] 47 U/L Normal 33-136 [facility] Comment on above: Performed By: #### 2 4323-8 #### BEVERLEY Poe ([id number]) [facility] ([facility]) [address] [place] [address] ALT With P-5'-P [Catalytic activity/Vol] 10 U/L Normal 7-45 [facility] Comment on above: Result Comment: Ирина ents treated with Sulfasalazine may generate falsely decreased results for ALT. Performed By: #### 2 4323-8 #### BEVERLEY Poe ([id number]) [facility] ([facility]) [address] [place] [address] Anion gap [Moles/Vol] 10 mmol/L Normal 10-20 [facility] Comment on above: Performed By: #### 2 4323-8 #### BEVERLEY Poe ([id number]) [facility] ([facility]) [address] [place] [address] AST With P-5'-P [Catalytic activity/Vol] 10 U/L Normal 9-39 [facility] Comment on above: Performed By: #### 2 4323-8 #### BEVERLEY DODD L ([id number]) [facility] ([facility]) [address] [place] [address] Bilirubin [Mass/Vol] 0.6 mg/dL Normal 0.0-1.2 [facility] Comment on above: Performed By: #### 2 4323-8 #### BEVERLEY DODD L ([id number]) [facility] ([facility]) [address] [place] [address] Calcium [Mass/Vol] 8.8 mg/dL Normal 8.6-10.6 [facility] Comment on above: Performed By: #### 2 4323-8 #### BEVERLEY Poe ([id number]) [facility] ([facility]) [address] [place] [address] Chloride [Moles/Vol] 100 mmol/L Normal 98-107 [facility] Comment on above: Performed By: #### 2 4323-8 #### BEVERLEY Poe ([id number]) [facility] ([facility]) [address] [place] [address] CO2 [Moles/Vol] 39 mmol/L High 21-32 [facility] Comment on above: Performed By: #### 2 4323-8 #### BEVERLEY Poe ([id number]) [facility] ([facility]) [address] [place] [address] Creatinine [Mass/Vol] 0.45 mg/dL Low 0.50-1.05 [facility] Comment on above: Performed By: #### 2 4323-8 #### BEVERLEY Poe ([id number]) [facility] ([facility]) [address] [place] [address] 16297 GFR/1.73 sq M.predicted MDRD (S/P/Bld) [Vol rate/Area] mL/min/{1.73_m2} Normal >60 [facility] Comment on above: Result Comment: Calc ulations of estimated GFR are performed using the 2020 CKD-EPI Study Refit equation without the race variable for the IDMS-Traceable creatinine methods. https://jasn.asnjournals.org/content//ASN.31358 62730 Performed By: #### 2 4323-8 #### BEVERLEY Poe ([id number]) [facility] ([facility]) [address] [place] [address]7967 Glucose [Mass/Vol] 88 mg/dL Normal 74-99 [facility] Comment on above: Performed By: #### 2 4323-8 #### BEVERLEY oPe ([id number]) [facility] ([facility]) [address] [place] [address]2570 Potassium [Moles/Vol] 4.2 mmol/L Normal 3.5-5.3 [facility] Comment on above: Performed By: #### 2 4323-8 #### BEVERLEY Poe ([id number]) [facility] ([facility]) [address] [place] [address] Protein [Mass/Vol] 6.1 g/dL Low 6.4-8.2 [facility] Comment on above: Performed By: #### 2 4323-8 #### BEVERLEY Poe ([id number]) [facility] ([facility]) [address] [place] [address] Sodium [Moles/Vol] 145 mmol/L Normal 136-145 [facility] Comment on above: Performed By: #### 2 4323-8 #### BEVERLEY Poe ([id number]) [facility] ([facility]) [address] [place] [address]2744 Urea nitrogen [Mass/Vol] 13 mg/dL Normal 6-23 [facility] Comment on above: Performed By: #### 2 4323-8 #### BEVERLEY Poe ([id number]) [facility] ([facility]) [address] [place] [address]478 Glucose Glucometer (BldC) [M ass/Vol]Ordered By: Calvin Hester on 09-15-2023 Glucose [Mass/Vol] 95 mg/dL 74-106 [facility] Comment on above: MANAGEMENT OF PATIEN T CARE PER NURSING PROTOCOL Ketones Test strip Ql (U)Ord ered By: Calvin Hester on 09-15-2023 Ketones Ql (U) Negative Negative [facility] - Microbiology an d Antimicrobial susceptibilityOrdered By: Calvin Hester on 09-15-2023 Bacteria identified Cx Nom (Bld) No growth in 5 days. [facility] Magnesiumon 09-15-2023 Magnesium [Mass/Vol] 2.13 mg/dL 1.60 - 2.40 mg/dL [facility] Magnesium [Mass/Vol] 2.13 mg/dL Normal 1.60-2.40 [facility] Comment on above: Performed By: #### 1 9123-9 #### BEVERLEY Poe ([id number]) [facility] ([facility]) [address] [place] [address] Magnesium [Mass/Vol]on 09-15 Interpretation and review of laboratory results Normal [facility] Mucus LM Ql (Urine sed)Order ed By: Calvin Hester on 09-15-2023 Mucus Ql (Urine sed) 0 SEEN /hpf [facility] Nitrite Test strip Ql (U)Ord ered By: Calvin Hester on 09-15-2023 Nitrite Ql (U) Positive Negative [facility] No Panel Informationon 09-15 [facility] PT and aPTT panel Coag (PPP) on 09-15-2023 aPTT Coag (PPP) [Time] 24 s Low Un [facility] INR Coag (PPP) [Relative time] 1.0 {INR} 0.9 - 1.1 [facility] Interpretation and review of laboratory results Abnormal [facility] PT Coag (PPP) [Time] 11.6 s [facility] aPTT Coag (PPP) [Time] 24 s Low 27-38 [facility] Comment on above: Order Comment: The A PTT is no longer used for monitoring Unfractionated Heparin Therapy. For monitoring Heparin Therapy, use the Heparin Assay. Performed By: #### 3 4529-8 #### BEVERLEY Poe ([id number]) [facility] ([facility]) [address] [place] [address] INR Coag (PPP) [Relative time] 1.0 Normal 0.9-1.1 [facility] Comment on above: Order Comment: The A PTT is no longer used for monitoring Unfractionated Heparin Therapy. For monitoring Heparin Therapy, use the Heparin Assay. Performed By: #### 3 4529-8 #### BEVERLEY Poe ([id number]) [facility] ([facility]) [address] [place] [address]177 PT Coag (PPP) [Time] 11.6 s Normal 9.8-12.8 [facility] Comment on above: Order Comment: The A PTT is no longer used for monitoring Unfractionated Heparin Therapy. For monitoring Heparin Therapy, use the Heparin Assay. Performed By: #### 3 4529-8 #### BEVERLEY Poe ([id number]) [facility] ([facility]) [address] [place] [address] Protein Test strip Ql (U)Ord ered By: Calvin Hester on 09-15-2023 Protein Ql (U) 30 mg/dl Negative [facility] Squamous epithelial cells de tection in urine sediment by light microscopyOrdered By: Calvin Hester on 09-15-2023 Epithelial cells.squamous LM Ql (Urine sed) 0 SEEN /hpf 5-10 [facility] Urine blood detectionOrdered By: Calvin Hester on 09-15-2023 RBC Ql (U) 50 /ul Negative [facility] RBC Ql (U) 0-5 SEEN /hpf 0-5 [facility] Urine clarityOrdered By: Farooq Hester on 09-15-2023 Clarity (U) Clear Clear [facility] Urine color determinationOrd ered By: Calvin Hester on 09-15-2023 Color (U) Yellow Yellow [facility] Urine glucose detectionOrder ed By: Calvin Hester on 09-15-2023 Glucose Ql (U) Normal mg/dl Normal [facility] Urine leukocyte esterase det ection by dipstickOrdered By: Calvin Hester on 09-15-2023 Leukocyte esterase Test strip Ql (U) 100 /ul Negative [facility] Urine pHOrdered By: Calvin solorzano on 09-15-2023 pH (U) 6.0 [pH] 5.0 - 8.0 [facility] Urine sediment bacteria coun t by microscopy (number/high power field)Ordered By: Calvin Hester on 09-15-2023 Bacteria LM.HPF (Urine sed) [#/Area] 1 /[HPF] None Seen [facility] Urine specific gravity measu rementOrdered By: Calvin Hester on 09-15-2023 Specific gravity (U) [Rel density] 1.010 1.002-1.030 [facility] Urobilinogen Auto test strip Ql (U)Ordered By: Calvin Hester on 09-15-2023 Urobilinogen Ql (U) 1 mg/dl Normal [facility] Absolute lymphocyte countOrd ered By: Calvin Hester on 09-14-2023 Lymphocytes Auto (Unsp spec) [#/Vol] 0.70 10*3/uL 0.83-4.51 [facility] Basophil percentageOrdered B y: Calvin Hester on 09-14-2023 Basophils/100 WBC (Bld) 0.3 % 0-1 [facility] Bilirubin [Mass/Vol] 0.40 mg/dL 0.20-1.00 [facility] Comment on above: For patients on eltr ombopag therapy, use of Dimension Max TBIL is not recommended. Chloride [Moles/Vol] 101 mmol/L 98-107 [facility] Eosinophils/100 WBC (Bld) 0.8 % 0-5 [facility] Glucose [Mass/Vol] 134 mg/dL 74-106 [facility] Comment on above: Fasting Glucose resu lt greater than or equal to 126 mg/dL suggests DIABETES MELLITUS per A.D.A. criteria. Neutrophils (Bld) [#/Vol] 2.5 10*3/uL 2.0-7.7 [facility] Neutrophils/100 WBC (Bld) 70.5 % 47-70 [facility] Potassium [Moles/Vol] 4.0 mmol/L 3.5-5.1 [facility] Protein [Mass/Vol] 6.9 g/dL 6.4-8.2 [facility] Sodium [Moles/Vol] 144 mmol/L 136-145 [facility] WBC (Bld) [#/Vol] 3.6 10*3/uL 4.4-11.0 [facility] Blood erythrocytes count (nu mber/volume)Ordered By: Calvin Hester on 09-14-2023 RBC (Bld) [#/Vol] 2.80 10*6/uL 4.2-5.4 [facility] Blood hemoglobin measurement (mass/volume)Ordered By: Calvin Hester on 09-14-2023 Hemoglobin (Bld) [Mass/Vol] 8.3 g/dL 12.0-15.0 [facility] Blood lymphocytes/100 leukoc ytesOrdered By: Calvin Hester on 09-14-2023 Lymphocytes/100 WBC (Bld) 19.5 % 19-41 [facility] Blood monocytes/100 leukocyt esOrdered By: Calvin Hester on 09-14-2023 Monocytes/100 WBC (Bld) 7.8 % 0-10 [facility] Blood platelet mean volumeOr dered By: Calvin Hester on 09-14-2023 Platelet mean volume (Bld) [Entitic vol] 8.8 fL 6.2-12.0 [facility] Determination of erythrocyte mean corpuscular volume (MCV)Ordered By: Calvin Hester on 09-14-2023 MCV (RBC) [Entitic vol] 102.9 fL 81-99 [facility] Direct bilirubinOrdered By: Calvin Hester on 09-14-2023 Bilirubin.direct [Mass/Vol] 0.09 mg/dL 0.00-0.30 [facility] Hematocrit Auto (Bld) [Volum e fraction]Ordered By: Calvin Hester on 09-14-2023 Hematocrit (Bld) [Volume fraction] 28.8 % 37-47 [facility] INR in Blood by Coagulation assayOrdered By: Calvin Hester on 09-14-2023 INR Coag (Bld) [Relative time] 1.0 {INR} [facility] - Chemistry and C hemistry - challengeOrdered By: Calvin Hester on 09-14-2023 ALP [Catalytic activity/Vol] 66 U/L 45-117 [facility] ALT [Catalytic activity/Vol] 18 U/L 13-56 [facility] CO2 [Moles/Vol] 41.0 mmol/L 21.0-32.0 [facility] Globulin (S) [Mass/Vol] 4.4 g/dL 2.2-4.2 [facility] Lipase [Catalytic activity/Vol] 24 U/L 13-75 [facility] Comment on above: Please note:LIPASE r evised reference range effective 23. New Lipase methodology. Expected to produce lower values than the previous assay method. NEW Reference Range: 13 - 75 U/L Urea nitrogen/Creatinine [Mass ratio] 25.5 mg/mg 10-20 [facility] - CoagulationOrde red By: Calvin Hester on 09-14-2023 aPTT Coag (Bld) [Time] 29.8 s 24.1-36.2 [facility] PT Coag (PPP) [Time] 13.0 s 11.7-14.9 [facility] Laboratory - Hematology and Cell countsOrdered By: Calvin Hester on 09-14-2023 Erythrocyte distribution width (RBC) [Entitic vol] 53.0 fL 35.1-43.9 [facility] Erythrocyte distribution width (RBC) [Ratio] 14.1 % 11.6-14.6 [facility] Immature granulocytes/100 WBC (Bld) 1.100 % 0.0-0.9 [facility] Comment on above: IG% - Immature Granu locytes (promyelocytes, myelocytes and metamyelocytes) > 1% indicates that a LEFT SHIFT is Present. MCH (RBC) [Entitic mass] 29.6 pg 27.0-32.0 [facility] Nucleated RBC/100 WBC (Bld) [Ratio] 0 % 0-5 [facility] MCHC Auto (RBC) [Mass/Vol]Or dered By: Calvin Hester on 09-14-2023 MCHC (RBC) [Mass/Vol] 28.8 g/dL 32-36 [facility] No Panel InformationOrdered By: Calvin Hester on 09-14-2023 Estimated Creatinine Clearance Calc 54.98 ml/min [facility] Estimated GFR (MDRD) Amer 87 mL/min >60 [facility] Comment on above: GFR Calc Estimated GFR (MDRD) Non-Af Amer 72 mL/min >60 [facility] Comment on above: Non- GFR Calc Platelets bldOrdered By: Farooq Hester on 09-14-2023 Platelets (Bld) [#/Vol] 109 10*3/uL 150-450 [facility] Serum or plasma albumin celina urement (mass/volume)Ordered By: Calvin Hester on 09-14-2023 Albumin [Mass/Vol] 2.5 g/dL 3.2-5.0 [facility] Serum or plasma calcium celina urement (mass/volume)Ordered By: Calvin Hester on 09-14-2023 Calcium [Mass/Vol] 9.0 mg/dL 8.5-10.1 [facility] Serum or plasma creatinine m easurement (mass/volume)Ordered By: Calvin Hester on 09-14-2023 Creatinine [Mass/Vol] 0.82 mg/dL 0.55-1.02 [facility] Comment on above: The validity of the calculated GFR & GFRAA in patients over 70 years has not been determined. Clinical correlation is essential. Serum or plasma urea nitroge n measurement (mass/volume)Ordered By: Calvin Hester on 09-14-2023 Urea nitrogen [Mass/Vol] 21 mg/dL 7-18 [facility] Thin prep Papanicolaou smear with manual screeningOrdered By: Calvin Hester on 09-14-2023 Thin prep Papanicolaou smear with manual screening 10 U/L 15-37 [facility] Thin prep Papanicolaou smear with manual screening 2 5-15 [facility] Basophil percentageOrdered B y: Jonathan Dillard on 09-13-2023 Bilirubin [Mass/Vol] 0.30 mg/dL 0.20-1.00 [facility] Comment on above: For patients on eltr ombopag therapy, use of Dimension Max TBIL is not recommended. Chloride [Moles/Vol] 103 mmol/L 98-107 [facility] Glucose [Mass/Vol] 111 mg/dL 74-106 [facility] Comment on above: Fasting Glucose resu lt from 100 to 125 mg/dL suggests IMPAIRED HOMEOSTASIS per A.D.A. criteria. Potassium [Moles/Vol] 3.8 mmol/L 3.5-5.1 [facility] Protein [Mass/Vol] 6.6 g/dL 6.4-8.2 [facility] Sodium [Moles/Vol] 145 mmol/L 136-145 [facility] WBC (Bld) [#/Vol] 2.8 10*3/uL 4.4-11.0 [facility] Blood erythrocytes count (nu mber/volume)Ordered By: Jonathan Dillard on 09-13-2023 RBC (Bld) [#/Vol] 2.62 10*6/uL 4.2-5.4 [facility] Blood hemoglobin measurement (mass/volume)Ordered By: Jonathan Dillard on 09-13-2023 Hemoglobin (Bld) [Mass/Vol] 8.0 g/dL 12.0-15.0 [facility] Blood platelet mean volumeOr dered By: Jonathan Dillard on 09-13-2023 Platelet mean volume (Bld) [Entitic vol] 8.6 fL 6.2-12.0 [facility] Determination of erythrocyte mean corpuscular volume (MCV)Ordered By: Jonathan Dillard on 09-13-2023 MCV (RBC) [Entitic vol] 103.4 fL 81-99 [facility] Hematocrit Auto (Bld) [Volum e fraction]Ordered By: Jonathan Dillard on 09-13-2023 Hematocrit (Bld) [Volume fraction] 27.1 % 37-47 [facility] Laboratory - Chemistry and C hemistry - challengeOrdered By: Jonathan Dillard on 09-13-2023 ALP [Catalytic activity/Vol] 58 U/L 45-117 [facility] ALT [Catalytic activity/Vol] 18 U/L 13-56 [facility] CO2 [Moles/Vol] 41.0 mmol/L 21.0-32.0 [facility] Globulin (S) [Mass/Vol] 4.2 g/dL 2.2-4.2 [facility] Urea nitrogen/Creatinine [Mass ratio] 34.5 mg/mg 10-20 [facility] Laboratory - Hematology and Cell countsOrdered By: Jonathan Dillard on 09-13-2023 Erythrocyte distribution width (RBC) [Entitic vol] 54.3 fL 35.1-43.9 [facility] Erythrocyte distribution width (RBC) [Ratio] 14.4 % 11.6-14.6 [facility] MCH (RBC) [Entitic mass] 30.5 pg 27.0-32.0 [facility] MCHC Auto (RBC) [Mass/Vol]Or dered By: Jonathan Dillard on 09-13-2023 MCHC (RBC) [Mass/Vol] 29.5 g/dL 32-36 [facility] Comment on above: Delta: 27.9 on 09/08 No Panel InformationOrdered By: Jonathan Dillard on 09-13-2023 Estimated GFR (MDRD) Amer 148 mL/min >60 [facility] Comment on above: GFR Calc Estimated GFR (MDRD) Non-Af Amer 122 mL/min >60 [facility] Comment on above: Non- GFR Calc Platelets bldOrdered By: Mervat Dillard on 09-13-2023 Platelets (Bld) [#/Vol] 103 10*3/uL 150-450 [facility] Serum or plasma albumin celina urement (mass/volume)Ordered By: Jonathan Dillard on 09-13-2023 Albumin [Mass/Vol] 2.4 g/dL 3.2-5.0 [facility] Serum or plasma albumin/glob ulin mass ratioOrdered By: Jonathan Dillard on 09-13-2023 Albumin/Globulin [Mass ratio] 0.6 {ratio} 0.9-2.4 [facility] Serum or plasma calcium celina urement (mass/volume)Ordered By: Jonathan Dillard on 09-13-2023 Calcium [Mass/Vol] 8.7 mg/dL 8.5-10.1 [facility] Serum or plasma creatinine m easurement (mass/volume)Ordered By: Jonathan Dillard on 09-13-2023 Creatinine [Mass/Vol] 0.52 mg/dL 0.55-1.02 [facility] Comment on above: The validity of the calculated GFR & GFRAA in patients over 70 years has not been determined. Clinical correlation is essential. Serum or plasma urea nitroge n measurement (mass/volume)Ordered By: Jonathan Dillard on 09-13-2023 Urea nitrogen [Mass/Vol] 18 mg/dL 7-18 [facility] Thin prep Papanicolaou smear with manual screeningOrdered By: Jonathan Dillard on 09-13-2023 Thin prep Papanicolaou smear with manual screening 11 U/L 15-37 [facility] Thin prep Papanicolaou smear with manual screening 1 5-15 [facility] Culture, urineOrdered By: Chloe Jeffries on 09-09-2023 Bacteria identified Cx Nom (U) Mixed Gram Pos & Gram Neg Org [facility] Cytology report of Body flui d Cyto stainOrdered By: Alecia Navarrete on 09-09-2023 Cytology report Cyto stain Doc (Body fld) SEE PATHOLOGY REPORT [facility] Comment on above: Specimen submitted t o Anatomical Pathology Department for testing. Absolute lymphocyte countOrd ered By: Delfin Bensonswetha on 09-08-2023 Lymphocytes Auto (Unsp spec) [#/Vol] 0.60 10*3/uL 0.83-4.51 [facility] Basophil percentageOrdered B y: Delfin Bensonswetha on 09-08-2023 Basophil percentage >100 SEEN /hpf 0-5 [facility] Comment on above: Microscopic field is filled. Other elements may be obscured. Basophil percentage 3.4 mg/dL 2.5-4.9 [facility] Basophils/100 WBC (Bld) 0.2 % 0-1 [facility] Bilirubin [Mass/Vol] 0.40 mg/dL 0.20-1.00 [facility] Comment on above: For patients on eltr ombopag therapy, use of Dimension Max TBIL is not recommended. Chloride [Moles/Vol] 104 mmol/L 98-107 [facility] Eosinophils/100 WBC (Bld) 0.7 % 0-5 [facility] Glucose [Mass/Vol] 163 mg/dL 74-106 [facility] Comment on above: Fasting Glucose resu lt greater than or equal to 126 mg/dL suggests DIABETES MELLITUS per A.D.A. criteria. Neutrophils (Bld) [#/Vol] 3.5 10*3/uL 2.0-7.7 [facility] Neutrophils/100 WBC (Bld) 78.8 % 47-70 [facility] Potassium [Moles/Vol] 3.8 mmol/L 3.5-5.1 [facility] Protein [Mass/Vol] 7.1 g/dL 6.4-8.2 [facility] Sodium [Moles/Vol] 143 mmol/L 136-145 [facility] WBC (Bld) [#/Vol] 4.5 10*3/uL 4.4-11.0 [facility] Bilirubin Test strip Ql (U)O rdered By: Delfin Jeffries on 09-08-2023 Bilirubin Ql (U) Negative Negative [facility] Blood erythrocytes count (nu mber/volume)Ordered By: Delfin Jeffries on 09-08-2023 RBC (Bld) [#/Vol] 3.10 10*6/uL 4.2-5.4 [facility] Blood hemoglobin measurement (mass/volume)Ordered By: Delfin Jeffries on 09-08-2023 Hemoglobin (Bld) [Mass/Vol] 9.0 g/dL 12.0-15.0 [facility] Blood lymphocytes/100 leukoc ytesOrdered By: Delfin Jeffries on 09-08-2023 Lymphocytes/100 WBC (Bld) 13.4 % 19-41 [facility] Blood manual differential co mment interpretation (narrative result)Ordered By: Delfin Jeffries on 09-08-2023 Manual differential comment Ajit (Bld) [Interp] SCANNED [facility] Blood monocytes/100 leukocyt esOrdered By: Delfin Jeffries on 09-08-2023 Monocytes/100 WBC (Bld) 6.5 % 0-10 [facility] Blood platelet mean volumeOr dered By: Delfin Jeffries on 09-08-2023 Platelet mean volume (Bld) [Entitic vol] 8.1 fL 6.2-12.0 [facility] Culture, urineOrdered By: Chloe Jeffries on 09-08-2023 Bacteria identified Cx Nom (U) Mixed Gram Pos & Gram Neg Org [facility] Determination of erythrocyte mean corpuscular volume (MCV)Ordered By: Delfin Jeffries on 09-08-2023 MCV (RBC) [Entitic vol] 104.2 fL 81-99 [facility] Erythrocyte sedimentation ra teOrdered By: Delfin Jeffries on 09-08-2023 ESR (Bld) [Velocity] 43 mm/h 0-30 [facility] Hematocrit Auto (Bld) [Volum e fraction]Ordered By: Delfin Jeffries on 09-08-2023 Hematocrit (Bld) [Volume fraction] 32.3 % 37-47 [facility] Hemoglobin in reticulocytes (mass per reticulocyte)Ordered By: Delfin Jeffries on 09-08-2023 Hemoglobin (Reticulocytes) [Entitic mass] 26.4 pg 30-35 [facility] Iron measurement (mass/mass) Ordered By: Delfin Jeffries on 09-08-2023 Iron (Unsp spec) [Mass/Mass] 32 ug/dL 50-170 [facility] Ketones Test strip Ql (U)Ord ered By: Delfin Jeffries on 10-26-2023 Ketones Ql (U) 5 mg/dl Negative [facility] Laboratory - Chemistry and C hemistry - challengeOrdered By: Delfin Jeffries on 09-08-2023 ALP [Catalytic activity/Vol] 69 U/L 45-117 [facility] ALT [Catalytic activity/Vol] 17 U/L 13-56 [facility] CO2 [Moles/Vol] 38.0 mmol/L 21.0-32.0 [facility] Cobalamin (Vitamin B12) [Mass/Vol] 1331 pg/mL 211-911 [facility] Globulin (S) [Mass/Vol] 4.5 g/dL 2.2-4.2 [facility] Magnesium [Mass/Vol] 2.1 mg/dL 1.6-2.6 [facility] Urea nitrogen/Creatinine [Mass ratio] 31.6 mg/mg 10-20 [facility] Laboratory - Hematology and Cell countsOrdered By: Delfin Jeffries on 09-08-2023 Erythrocyte distribution width (RBC) [Entitic vol] 55.1 fL 35.1-43.9 [facility] Erythrocyte distribution width (RBC) [Ratio] 14.6 % 11.6-14.6 [facility] Immature granulocytes/100 WBC (Bld) 0.400 % 0.0-0.9 [facility] Comment on above: IG% - Immature Granu locytes (promyelocytes, myelocytes and metamyelocytes) > 1% indicates that a LEFT SHIFT is Present. MCH (RBC) [Entitic mass] 29.0 pg 27.0-32.0 [facility] Nucleated RBC/100 WBC (Bld) [Ratio] 0 % 0-5 [facility] MCHC Auto (RBC) [Mass/Vol]Or dered By: Delfin Jeffries on 09-08-2023 MCHC (RBC) [Mass/Vol] 27.9 g/dL 32-36 [facility] Mucus LM Ql (Urine sed)Order ed By: Delfin Jeffries on 09-08-2023 Mucus Ql (Urine sed) 0 SEEN /hpf [facility] Nitrite Test strip Ql (U)Ord ered By: Delfin Jeffries on 09-08-2023 Nitrite Ql (U) Negative Negative [facility] No Panel InformationOrdered By: Delfin Jeffries on 09-08-2023 Estimated Creatinine Clearance Calc 43.27 ml/min [facility] Estimated GFR (MDRD) Amer 118 mL/min >60 [facility] Comment on above: GFR Calc Estimated GFR (MDRD) Non-Af Amer 98 mL/min >60 [facility] Comment on above: Non- GFR Calc Immature Reticulocyte Fraction 17.60 % 3.00-15.90 [facility] Reticulocyte Count 2.46 % 0.5-1.5 [facility] Total Iron Binding Capacity 216 ug/dL 250-450 [facility] Platelets bldOrdered By: Luciano Jeffries on 09-08-2023 Platelets (Bld) [#/Vol] 113 10*3/uL 150-450 [facility] Protein Test strip Ql (U)Ord ered By: Delfin Jeffries on 09-08-2023 Protein Ql (U) 500 mg/dl Negative [facility] Serum or plasma C reactive p rotein measurement (mass/volume)Ordered By: Delfin Jeffries on 09-08-2023 CRP [Mass/Vol] 81.40 mg/L 0.0-3.0 [facility] Comment on above: C-Reactive Protein ( CRP) provides useful information for thediagnosis, therapy and monitoring of inflammatory processesand associated diseases. For the evaluation of Relative Riskfor Cardiovascular Disease, a High Sensitivity CRP (HSCRP)should be ordered. Serum or plasma albumin celina urement (mass/volume)Ordered By: Delfin Jeffries on 09-08-2023 Albumin [Mass/Vol] 2.6 g/dL 3.2-5.0 [facility] Serum or plasma albumin/glob ulin mass ratioOrdered By: Delfin Jeffries on 09-08-2023 Albumin/Globulin [Mass ratio] 0.6 {ratio} 0.9-2.4 [facility] Serum or plasma calcium celina urement (mass/volume)Ordered By: Delfin Jeffries on 09-08-2023 Calcium [Mass/Vol] 8.7 mg/dL 8.5-10.1 [facility] Serum or plasma creatinine m easurement (mass/volume)Ordered By: Delfin Jeffries on 09-08-2023 Creatinine [Mass/Vol] 0.63 mg/dL 0.55-1.02 [facility] Comment on above: The validity of the calculated GFR & GFRAA in patients over 70 years has not been determined. Clinical correlation is essential. Serum or plasma ferritin carter surement (mass/volume)Ordered By: Delfin Jeffries on 09-08-2023 Ferritin [Mass/Vol] 243 ng/mL 8-252 [facility] Serum or plasma folate measu rement (mass/volume)Ordered By: Delfin Jeffries on 09-08-2023 Folate [Mass/Vol] 84.50 ng/mL 3.1-55.4 [facility] Serum or plasma iron saturat ion measurement (mass fraction)Ordered By: Delfin Jeffries on 09-08-2023 Iron saturation [Mass fraction] 14.8 % 15.0-55.0 [facility] Serum or plasma urea nitroge n measurement (mass/volume)Ordered By: Delfin Jeffries on 09-08-2023 Urea nitrogen [Mass/Vol] 20 mg/dL 7-18 [facility] Squamous epithelial cells de tection in urine sediment by light microscopyOrdered By: Delfin Jeffries on 09-08-2023 Epithelial cells.squamous LM Ql (Urine sed) 0 SEEN /hpf 5-10 [facility] Thin prep Papanicolaou smear with manual screeningOrdered By: Delfin Jeffries on 09-08-2023 Thin prep Papanicolaou smear with manual screening 15 U/L 15-37 [facility] Thin prep Papanicolaou smear with manual screening 1 5-15 [facility] Urine blood detectionOrdered By: Delfin Jeffries on 09-08-2023 RBC Ql (U) 250 /ul Negative [facility] RBC Ql (U) > 100 SEEN /hpf 0-5 [facility] Comment on above: Microscopic field is filled. Other elements may be obscured. Urine clarityOrdered By: Luciano Jeffries on 09-08-2023 Clarity (U) Cloudy Clear [facility] Urine color determinationOrd ered By: Delfin Jeffries on 09-08-2023 Color (U) Brown Yellow [facility] Urine glucose detectionOrder ed By: Delfin Jeffries on 09-08-2023 Glucose Ql (U) Normal mg/dl Normal [facility] Urine leukocyte esterase det ection by dipstickOrdered By: Delfin Jeffries on 09-08-2023 Leukocyte esterase Test strip Ql (U) 100 /ul Negative [facility] Urine pHOrdered By: Delfin elizabeth on 09-08-2023 pH (U) 5.0 [pH] 5.0 - 8.0 [facility] Urine sediment bacteria coun t by microscopy (number/high power field)Ordered By: Delfin Jeffries on 09-08-2023 Bacteria LM.HPF (Urine sed) [#/Area] 0 /[HPF] None Seen [facility] Urine specific gravity measu rementOrdered By: Delfin Jeffries on 09-08-2023 Specific gravity (U) [Rel density] 1.020 1.002-1.030 [facility] Urobilinogen Auto test strip Ql (U)Ordered By: Delfin Jeffries on 09-08-2023 Urobilinogen Ql (U) Normal mg/dl Normal [facility] Basophil percentageOrdered B y: Jonathan Dillard on 08-31-2023 Basophil percentage >100 SEEN /hpf 0-5 [facility] Chloride [Moles/Vol] 104 mmol/L 98-107 [facility] Glucose [Mass/Vol] 110 mg/dL 74-106 [facility] Comment on above: Fasting Glucose resu lt from 100 to 125 mg/dL suggests IMPAIRED HOMEOSTASIS per A.D.A. criteria. Potassium [Moles/Vol] 3.9 mmol/L 3.5-5.1 [facility] Sodium [Moles/Vol] 146 mmol/L 136-145 [facility] WBC (Bld) [#/Vol] 3.7 10*3/uL 4.4-11.0 [facility] Bilirubin Test strip Ql (U)O rdered By: Jonathan Dillard on 08-31-2023 Bilirubin Ql (U) Negative Negative [facility] Blood erythrocytes count (nu mber/volume)Ordered By: Jonathan Dillard on 08-31-2023 RBC (Bld) [#/Vol] 2.85 10*6/uL 4.2-5.4 [facility] Blood hemoglobin measurement (mass/volume)Ordered By: Jonathan Dillard on 08-31-2023 Hemoglobin (Bld) [Mass/Vol] 8.5 g/dL 12.0-15.0 [facility] Blood manual differential co mment interpretation (narrative result)Ordered By: Jonathan Dillard on 08-31-2023 Manual differential comment Ajit (Bld) [Interp] COMMENT [facility] Comment on above: PLT POPULATION - MOD ERATELY DECREASED. Blood platelet mean volumeOr dered By: Jonathan Dillrad on 08-31-2023 Platelet mean volume (Bld) [Entitic vol] 9.6 fL 6.2-12.0 [facility] Culture, urineOrdered By: Higuera on 08-31-2023 Bacteria identified Cx Nom (U) Mixed Gram Pos & Gram Neg Org [facility] Determination of erythrocyte mean corpuscular volume (MCV)Ordered By: Jonathan Dillard on 08-31-2023 MCV (RBC) [Entitic vol] 102.8 fL 81-99 [facility] Hematocrit Auto (Bld) [Volum e fraction]Ordered By: Jonathan Dillard on 08-31-2023 Hematocrit (Bld) [Volume fraction] 29.3 % 37-47 [facility] Ketones Test strip Ql (U)Ord ered By: Jonathan Dillard on 08-31-2023 Ketones Ql (U) Negative Negative [facility] Laboratory - Chemistry and C hemistry - challengeOrdered By: Jonathan Dillard on 08-31-2023 CO2 [Moles/Vol] 39.0 mmol/L 21.0-32.0 [facility] Urea nitrogen/Creatinine [Mass ratio] 37.5 mg/mg 10-20 [facility] Laboratory - Hematology and Cell countsOrdered By: Jonathan Dillard on 08-31-2023 Erythrocyte distribution width (RBC) [Entitic vol] 54.3 fL 35.1-43.9 [facility] Erythrocyte distribution width (RBC) [Ratio] 14.4 % 11.6-14.6 [facility] MCH (RBC) [Entitic mass] 29.8 pg 27.0-32.0 [facility] MCHC Auto (RBC) [Mass/Vol]Or dered By: Jonathan Dillard on 08-31-2023 MCHC (RBC) [Mass/Vol] 29.0 g/dL 32-36 [facility] Mucus LM Ql (Urine sed)Order ed By: Jonathan Dillard on 08-31-2023 Mucus Ql (Urine sed) 0 SEEN /hpf [facility] Nitrite Test strip Ql (U)Ord ered By: Jonathan Dillard on 08-31-2023 Nitrite Ql (U) Negative Negative [facility] No Panel InformationOrdered By: Jonathan Dillard on 08-31-2023 Estimated GFR (MDRD) Amer 153 mL/min >60 [facility] Comment on above: GFR Calc Estimated GFR (MDRD) Non-Af Amer 127 mL/min >60 [facility] Comment on above: Non- GFR Calc Platelets bldOrdered By: Mervat Dillard on 08-31-2023 Platelets (Bld) [#/Vol] 96 10*3/uL 150-450 [facility] Protein Test strip Ql (U)Ord ered By: Jonathan Dillard on 08-31-2023 Protein Ql (U) 100 mg/dl Negative [facility] Serum or plasma calcium celina urement (mass/volume)Ordered By: Jonathan Dillard on 08-31-2023 Calcium [Mass/Vol] 9.5 mg/dL 8.5-10.1 [facility] Serum or plasma creatinine m easurement (mass/volume)Ordered By: Jonathan Dillard on 08-31-2023 Creatinine [Mass/Vol] 0.51 mg/dL 0.55-1.02 [facility] Comment on above: The validity of the calculated GFR & GFRAA in patients over 70 years has not been determined. Clinical correlation is essential. Serum or plasma urea nitroge n measurement (mass/volume)Ordered By: Jonathan Dillard on 08-31-2023 Urea nitrogen [Mass/Vol] 19 mg/dL -18 [facility] Squamous epithelial cells de tection in urine sediment by light microscopyOrdered By: Jonathan Dillard on 08-31-2023 Epithelial cells.squamous LM Ql (Urine sed) 0 SEEN /hpf 5-10 [facility] Thin prep Papanicolaou smear with manual screeningOrdered By: Jonathan Dillard on 08-31-2023 Thin prep Papanicolaou smear with manual screening 3 5-15 [facility] Urine blood detectionOrdered By: Jonathan Dillard on 08-31-2023 RBC Ql (U) 250 /ul Negative [facility] RBC Ql (U) > 100 SEEN /hpf 0-5 [facility] Urine clarityOrdered By: Mervat Dillard on 08-31-2023 Clarity (U) Cloudy Clear [facility] Urine color determinationOrd ered By: Jonathan Dillard on 08-31-2023 Color (U) Yellow Yellow [facility] Urine glucose detectionOrder ed By: Jonathan Dillard on 08-31-2023 Glucose Ql (U) Normal mg/dl Normal [facility] Urine leukocyte esterase det ection by dipstickOrdered By: Jonathan Dillard on 08-31-2023 Leukocyte esterase Test strip Ql (U) 500 /ul Negative [facility] Urine pHOrdered By: Jonathan ramirez on 08-31-2023 pH (U) 6.0 [pH] 5.0 - 8.0 [facility] Urine sediment bacteria coun t by microscopy (number/high power field)Ordered By: Jonathan Dillard on 08-31-2023 Bacteria LM.HPF (Urine sed) [#/Area] 2 /[HPF] None Seen [facility] Urine specific gravity measu rementOrdered By: Jonathan Dillard on 08-31-2023 Specific gravity (U) [Rel density] 1.015 1.002-1.030 [facility] Urobilinogen Auto test strip Ql (U)Ordered By: Jonathan Dillard on 08-31-2023 Urobilinogen Ql (U) Normal mg/dl Normal [facility] Culture, urineOrdered By: Higuera on 08-17-2023 Bacteria identified Cx Nom (U) Mixed Gram Pos & Gram Neg Org [facility] XR BARIUM ENEMA COMPLETEon 1 XR [...] 08/17/2023 3:50:07 PM Ordering Provider: MARK JEREZ [facility] Basophil percentageOrdered B y: Jonathan Dillard on 08-16-2023 Basophil percentage 0-5 SEEN /hpf 0-5 [facility] Bilirubin Test strip Ql (U)O rdered By: Jonathan Dillard on 08-16-2023 Bilirubin Ql (U) Negative Negative [facility] Culture, urineOrdered By: Higuera on 08-16-2023 Bacteria identified Cx Nom (U) Mixed Gram Pos & Gram Neg Org [facility] Hyaline casts LM.LPF (Urine sed) [#/Area]Ordered By: Jonathan Dillard on 08-16-2023 Hyaline casts (Urine sed) [#/Area] 5 /[LPF] 0-5 [facility] Ketones Test strip Ql (U)Ord ered By: Jonathan Dillard on 08-16-2023 Ketones Ql (U) 5 mg/dl Negative [facility] Mucus LM Ql (Urine sed)Order ed By: Jonathan Dillard on 08-16-2023 Mucus Ql (Urine sed) 0 SEEN /hpf [facility] Nitrite Test strip Ql (U)Ord ered By: Jonathan Dillard on 08-16-2023 Nitrite Ql (U) Negative Negative [facility] Protein Test strip Ql (U)Ord ered By: Jonathan Dillard on 08-16-2023 Protein Ql (U) 100 mg/dl Negative [facility] Squamous epithelial cells de tection in urine sediment by light microscopyOrdered By: Jonathan Dillard on 08-16-2023 Epithelial cells.squamous LM Ql (Urine sed) 5-10 SEEN /hpf 5-10 [facility] Urine blood detectionOrdered By: Jonathan Dillard on 08-16-2023 RBC Ql (U) 150 /ul Negative [facility] RBC Ql (U) 5-10 SEEN /hpf 0-5 [facility] Urine clarityOrdered By: Mervat Dillard on 08-16-2023 Clarity (U) Sl. Cloudy Clear [facility] Urine color determinationOrd ered By: Jonathan Dillard on 08-16-2023 Color (U) Yellow Yellow [facility] Urine glucose detectionOrder ed By: Jonathan Dillard on 08-16-2023 Glucose Ql (U) Normal mg/dl Normal [facility] Urine leukocyte esterase det ection by dipstickOrdered By: Jonathan Dillard on 08-16-2023 Leukocyte esterase Test strip Ql (U) 25 /ul Negative [facility] Urine pHOrdered By: Jonathan ramirez on 08-16-2023 pH (U) 5.0 [pH] 5.0 - 8.0 [facility] Urine sediment bacteria coun t by microscopy (number/high power field)Ordered By: Jonathan Dillard on 08-16-2023 Bacteria LM.HPF (Urine sed) [#/Area] 1 /[HPF] None Seen [facility] Urine specific gravity measu rementOrdered By: Jonathan Dillard on 08-16-2023 Specific gravity (U) [Rel density] 1.025 1.002-1.030 [facility] Urobilinogen Auto test strip Ql (U)Ordered By: Jonathan Dillard on 08-16-2023 Urobilinogen Ql (U) Normal mg/dl Normal [facility] LABORATORYOrdered By: Amy Mohan Jason on 08-15-2023 Glucose [Mass/Vol] 147 mg/dL Invalid Interpretation Code 82 - 115 mg/dL [facility] Work Phone: XR ABDOMEN APon 08-15-2023 [...] 08/15/2023 12:08:09 PM Ordering Provider: MARK JEREZ [facility] Absolute lymphocyte countOrd ered By: Calvin Hester on 08-10-2023 Lymphocytes Auto (Unsp spec) [#/Vol] 0.52 10*3/uL 0.83-4.51 [facility] Basophil percentageOrdered B y: Calvin Hester on 08-10-2023 Basophils/100 WBC (Bld) 0.1 % 0-1 [facility] Chloride [Moles/Vol] 103 mmol/L 98-107 [facility] Eosinophils/100 WBC (Bld) 0.4 % 0-5 [facility] Glucose [Mass/Vol] 149 mg/dL 74-106 [facility] Comment on above: Fasting Glucose resu lt greater than or equal to 126 mg/dL suggests DIABETES MELLITUS per A.D.A. criteria. Neutrophils (Bld) [#/Vol] 5.8 10*3/uL 2.0-7.7 [facility] Neutrophils/100 WBC (Bld) 85.8 % 47-70 [facility] Potassium [Moles/Vol] 4.1 mmol/L 3.5-5.1 [facility] Sodium [Moles/Vol] 144 mmol/L 136-145 [facility] WBC (Bld) [#/Vol] 6.8 10*3/uL 4.4-11.0 [facility] Blood erythrocytes count (nu mber/volume)Ordered By: Calvin Hester on 08-10-2023 RBC (Bld) [#/Vol] 3.38 10*6/uL 4.2-5.4 [facility] Blood hemoglobin measurement (mass/volume)Ordered By: Calvin Hester on 08-10-2023 Hemoglobin (Bld) [Mass/Vol] 9.9 g/dL 12.0-15.0 [facility] Blood lymphocytes/100 leukoc ytesOrdered By: Calvin Hester on 08-10-2023 Lymphocytes/100 WBC (Bld) 7.6 % 19-41 [facility] Blood manual differential co mment interpretation (narrative result)Ordered By: Calvin Hester on 08-10-2023 Manual differential comment Ajit (Bld) [Interp] SCANNED [facility] Comment on above: LYMPHOPENIA NOTED Blood monocytes/100 leukocyt esOrdered By: Calvin Hester on 08-10-2023 Monocytes/100 WBC (Bld) 5.7 % 0-10 [facility] Blood platelet mean volumeOr dered By: Calvin Hester on 08-10-2023 Platelet mean volume (Bld) [Entitic vol] 9.1 fL 6.2-12.0 [facility] Determination of erythrocyte mean corpuscular volume (MCV)Ordered By: Calvin Hester on 08-10-2023 MCV (RBC) [Entitic vol] 100.0 fL 81-99 [facility] Hematocrit Auto (Bld) [Volum e fraction]Ordered By: Calvin Hester on 08-10-2023 Hematocrit (Bld) [Volume fraction] 33.8 % 37-47 [facility] Laboratory - Chemistry and C hemistry - challengeOrdered By: Calvin Hester on 08-10-2023 CO2 [Moles/Vol] 40.0 mmol/L 21.0-32.0 [facility] Magnesium [Mass/Vol] 2.1 mg/dL 1.6-2.6 [facility] Urea nitrogen/Creatinine [Mass ratio] 29.3 mg/mg 10-20 [facility] - Hematology and Cell countsOrdered By: Calvin Hester on 08-10-2023 Erythrocyte distribution width (RBC) [Entitic vol] 51.8 fL 35.1-43.9 [facility] Erythrocyte distribution width (RBC) [Ratio] 14.1 % 11.6-14.6 [facility] Immature granulocytes/100 WBC (Bld) 0.400 % 0.0-0.9 [facility] Comment on above: IG% - Immature Granu locytes (promyelocytes, myelocytes and metamyelocytes) > 1% indicates that a LEFT SHIFT is Present. MCH (RBC) [Entitic mass] 29.3 pg 27.0-32.0 [facility] Nucleated RBC/100 WBC (Bld) [Ratio] 0 % 0-5 [facility] MCHC Auto (RBC) [Mass/Vol]Or dered By: Calvin Hester on 08-10-2023 MCHC (RBC) [Mass/Vol] 29.3 g/dL 32-36 [facility] No Panel InformationOrdered By: Calvin Hester on 08-10-2023 Estimated Creatinine Clearance Calc 45.09 ml/min [facility] Estimated GFR (MDRD) Amer 123 mL/min >60 [facility] Comment on above: GFR Calc Estimated GFR (MDRD) Non-Af Amer 101 mL/min >60 [facility] Comment on above: Non- GFR Calc Platelets bldOrdered By: Farooq Hester on 08-10-2023 Platelets (Bld) [#/Vol] 108 10*3/uL 150-450 [facility] Serum or plasma calcium celina urement (mass/volume)Ordered By: Calvin Hester on 08-10-2023 Calcium [Mass/Vol] 8.4 mg/dL 8.5-10.1 [facility] Serum or plasma creatinine m easurement (mass/volume)Ordered By: Calvin Hester on 08-10-2023 Creatinine [Mass/Vol] 0.61 mg/dL 0.55-1.02 [facility] Comment on above: The validity of the calculated GFR & GFRAA in patients over 70 years has not been determined. Clinical correlation is essential. Serum or plasma urea nitroge n measurement (mass/volume)Ordered By: Calvin Hester on 08-10-2023 Urea nitrogen [Mass/Vol] 18 mg/dL 7-18 [facility] Thin prep Papanicolaou smear with manual screeningOrdered By: Calvin Hester on 08-10-2023 Thin prep Papanicolaou smear with manual screening 1 5-15 [facility] Absolute lymphocyte countOrd ered By: Shahnaz Way on 07-14-2023 Lymphocytes Auto (Unsp spec) [#/Vol] 0.68 10*3/uL 0.83-4.51 [facility] Basophil percentageOrdered B y: Shahnaz Way on 07-14-2023 Basophil percentage 0 SEEN /hpf 0-5 [facility] Basophils/100 WBC (Bld) 0.2 % 0-1 [facility] Bilirubin [Mass/Vol] 0.30 mg/dL 0.20-1.00 [facility] Comment on above: For patients on eltr ombopag therapy, use of Dimension Max TBIL is not recommended. Chloride [Moles/Vol] 103 mmol/L 98-107 [facility] Eosinophils/100 WBC (Bld) 1.3 % 0-5 [facility] Glucose [Mass/Vol] 127 mg/dL 74-106 [facility] Comment on above: Fasting Glucose resu lt greater than or equal to 126 mg/dL suggests DIABETES MELLITUS per A.D.A. criteria. Neutrophils (Bld) [#/Vol] 3.6 10*3/uL 2.0-7.7 [facility] Neutrophils/100 WBC (Bld) 76.9 % 47-70 [facility] Potassium [Moles/Vol] 3.7 mmol/L 3.5-5.1 [facility] Protein [Mass/Vol] 7.0 g/dL 6.4-8.2 [facility] Sodium [Moles/Vol] 144 mmol/L 136-145 [facility] WBC (Bld) [#/Vol] 4.6 10*3/uL 4.4-11.0 [facility] Bilirubin Test strip Ql (U)O rdered By: Shahnaz Way on 07-14-2023 Bilirubin Ql (U) Negative Negative [facility] Blood erythrocytes count (nu mber/volume)Ordered By: Shahnaz Way on 07-14-2023 RBC (Bld) [#/Vol] 3.10 10*6/uL 4.2-5.4 [facility] Blood hemoglobin measurement (mass/volume)Ordered By: Shahnaz Way on 07-14-2023 Hemoglobin (Bld) [Mass/Vol] 8.8 g/dL 12.0-15.0 [facility] Blood lymphocytes/100 leukoc ytesOrdered By: Shahnaz Way on 07-14-2023 Lymphocytes/100 WBC (Bld) 14.7 % 19-41 [facility] Blood monocytes/100 leukocyt esOrdered By: Shahnaz Way on 07-14-2023 Monocytes/100 WBC (Bld) 6.5 % 0-10 [facility] Blood platelet mean volumeOr dered By: Shahnaz Way on 07-14-2023 Platelet mean volume (Bld) [Entitic vol] 8.9 fL 6.2-12.0 [facility] Determination of erythrocyte mean corpuscular volume (MCV)Ordered By: Shahnaz Way on 07-14-2023 MCV (RBC) [Entitic vol] 101.3 fL 81-99 [facility] Hematocrit Auto (Bld) [Volum e fraction]Ordered By: Shahnaz Way on 07-14-2023 Hematocrit (Bld) [Volume fraction] 31.4 % 37-47 [facility] Ketones Test strip Ql (U)Ord ered By: Shahnaz Way on 07-14-2023 Ketones Ql (U) Negative Negative [facility] Laboratory - Chemistry and C hemistry - challengeOrdered By: Shahnaz Way on 07-14-2023 ALP [Catalytic activity/Vol] 76 U/L 45-117 [facility] ALT [Catalytic activity/Vol] 25 U/L 13-56 [facility] CO2 [Moles/Vol] 40.0 mmol/L 21.0-32.0 [facility] Globulin (S) [Mass/Vol] 4.4 g/dL 2.2-4.2 [facility] Urea nitrogen/Creatinine [Mass ratio] 37.6 mg/mg 10-20 [facility] - Hematology and Cell countsOrdered By: Shahnaz Way on 07-14-2023 Erythrocyte distribution width (RBC) [Entitic vol] 53.1 fL 35.1-43.9 [facility] Erythrocyte distribution width (RBC) [Ratio] 14.4 % 11.6-14.6 [facility] Immature granulocytes/100 WBC (Bld) 0.400 % 0.0-0.9 [facility] Comment on above: IG% - Immature Granu locytes (promyelocytes, myelocytes and metamyelocytes) > 1% indicates that a LEFT SHIFT is Present. MCH (RBC) [Entitic mass] 28.4 pg 27.0-32.0 [facility] Nucleated RBC/100 WBC (Bld) [Ratio] 0 % 0-5 [facility] MCHC Auto (RBC) [Mass/Vol]Or dered By: Shahnaz Way on 07-14-2023 MCHC (RBC) [Mass/Vol] 28.0 g/dL 32-36 [facility] Mucus LM Ql (Urine sed)Order ed By: Shahnaz Way on 07-14-2023 Mucus Ql (Urine sed) 0 SEEN /hpf [facility] Nitrite Test strip Ql (U)Ord ered By: Shahnaz Way on 07-14-2023 Nitrite Ql (U) Negative Negative [facility] No Panel InformationOrdered By: Shahnaz Way on 07-14-2023 Estimated Creatinine Clearance Calc 45.09 ml/min [facility] Estimated GFR (MDRD) Amer 123 mL/min >60 [facility] Comment on above: GFR Calc Estimated GFR (MDRD) Non-Af Amer 102 mL/min >60 [facility] Comment on above: Non- GFR Calc Platelets bldOrdered By: Jaimee Way on 07-14-2023 Platelets (Bld) [#/Vol] 117 10*3/uL 150-450 [facility] Protein Test strip Ql (U)Ord ered By: Shahnaz Way on 07-14-2023 Protein Ql (U) 15 mg/dl Negative [facility] Serum or plasma albumin celina urement (mass/volume)Ordered By: Shahnaz Way on 07-14-2023 Albumin [Mass/Vol] 2.6 g/dL 3.2-5.0 [facility] Serum or plasma albumin/glob ulin mass ratioOrdered By: Shahnaz Way on 07-14-2023 Albumin/Globulin [Mass ratio] 0.6 {ratio} 0.9-2.4 [facility] Serum or plasma calcium eclina urement (mass/volume)Ordered By: Shanhaz Way on 07-14-2023 Calcium [Mass/Vol] 8.8 mg/dL 8.5-10.1 [facility] Serum or plasma creatinine m easurement (mass/volume)Ordered By: Shahnaz Way on 07-14-2023 Creatinine [Mass/Vol] 0.61 mg/dL 0.55-1.02 [facility] Comment on above: The validity of the calculated GFR & GFRAA in patients over 70 years has not been determined. Clinical correlation is essential. Serum or plasma urea nitroge n measurement (mass/volume)Ordered By: Shahnaz Way on 07-14-2023 Urea nitrogen [Mass/Vol] 23 mg/dL 7-18 [facility] Squamous epithelial cells de tection in urine sediment by light microscopyOrdered By: Shahnaz Way on 07-14-2023 Epithelial cells.squamous LM Ql (Urine sed) 0 SEEN /hpf 5-10 [facility] Thin prep Papanicolaou smear with manual screeningOrdered By: Shahnaz Way on 07-14-2023 Thin prep Papanicolaou smear with manual screening 17 U/L 15-37 [facility] Thin prep Papanicolaou smear with manual screening 1 5-15 [facility] Urine blood detectionOrdered By: Shahnaz Way on 07-14-2023 RBC Ql (U) Negative Negative [facility] RBC Ql (U) 0-5 SEEN /hpf 0-5 [facility] Urine clarityOrdered By: Jaimee Way on 07-14-2023 Clarity (U) Clear Clear [facility] Urine color determinationOrd ered By: Shahnaz Way on 07-14-2023 Color (U) Yellow Yellow [facility] Urine glucose detectionOrder ed By: Shahnaz Way on 07-14-2023 Glucose Ql (U) Normal mg/dl Normal [facility] Urine leukocyte esterase det ection by dipstickOrdered By: Shahnaz Way on 07-14-2023 Leukocyte esterase Test strip Ql (U) Negative Negative [facility] Urine pHOrdered By: Shahnaz hoffman on 07-14-2023 pH (U) 6.0 [pH] 5.0 - 8.0 [facility] Urine sediment bacteria coun t by microscopy (number/high power field)Ordered By: Shahnaz Way on 07-14-2023 Bacteria LM.HPF (Urine sed) [#/Area] 0 /[HPF] None Seen [facility] Urine specific gravity measu rementOrdered By: Shahnaz Way on 07-14-2023 Specific gravity (U) [Rel density] 1.020 1.002-1.030 [facility] Urobilinogen Auto test strip Ql (U)Ordered By: Shahnaz Way on 07-14-2023 Urobilinogen Ql (U) Normal mg/dl Normal [facility] Basophil percentageOrdered B y: Jonathan Depmonroeo on 06-28-2023 Bilirubin [Mass/Vol] 0.40 mg/dL 0.20-1.00 [facility] Comment on above: For patients on eltr ombopag therapy, use of Dimension Max TBIL is not recommended. Chloride [Moles/Vol] 101 mmol/L 98-107 [facility] Glucose [Mass/Vol] 117 mg/dL 74-106 [facility] Comment on above: Fasting Glucose resu lt from 100 to 125 mg/dL suggests IMPAIRED HOMEOSTASIS per A.D.A. criteria. Potassium [Moles/Vol] 3.9 mmol/L 3.5-5.1 [facility] Protein [Mass/Vol] 6.8 g/dL 6.4-8.2 [facility] Sodium [Moles/Vol] 145 mmol/L 136-145 [facility] WBC (Bld) [#/Vol] 4.6 10*3/uL 4.4-11.0 [facility] Blood erythrocytes count (nu mber/volume)Ordered By: Jonathan Dillard on 06-28-2023 RBC (Bld) [#/Vol] 3.02 10*6/uL 4.2-5.4 [facility] Blood hemoglobin measurement (mass/volume)Ordered By: Jonathan Dillard on 06-28-2023 Hemoglobin (Bld) [Mass/Vol] 8.6 g/dL 12.0-15.0 [facility] Blood platelet mean volumeOr dered By: Jonathan Dillard on 06-28-2023 Platelet mean volume (Bld) [Entitic vol] 9.0 fL 6.2-12.0 [facility] Determination of erythrocyte mean corpuscular volume (MCV)Ordered By: Jonathan Dillard on 06-28-2023 MCV (RBC) [Entitic vol] 101.7 fL 81-99 [facility] Hematocrit Auto (Bld) [Volum e fraction]Ordered By: oJnathan Dillard on 06-28-2023 Hematocrit (Bld) [Volume fraction] 30.7 % 37-47 [facility] - Chemistry and C hemistry - challengeOrdered By: Jonathan Dillard on 06-28-2023 ALP [Catalytic activity/Vol] 72 U/L 45-117 [facility] ALT [Catalytic activity/Vol] 16 U/L 13-56 [facility] CO2 [Moles/Vol] 43.0 mmol/L 21.0-32.0 [facility] Globulin (S) [Mass/Vol] 4.2 g/dL 2.2-4.2 [facility] Lipase [Catalytic activity/Vol] 18 U/L 13-75 [facility] Comment on above: Please note:LIPASE r evised reference range effective 23. New Lipase methodology. Expected to produce lower values than the previous assay method. NEW Reference Range: 13 - 75 U/L Urea nitrogen/Creatinine [Mass ratio] 32.5 mg/mg 10-20 [facility] - Hematology and Cell countsOrdered By: Jonathan Dillard on 06-28-2023 Erythrocyte distribution width (RBC) [Entitic vol] 53.0 fL 35.1-43.9 [facility] Erythrocyte distribution width (RBC) [Ratio] 14.1 % 11.6-14.6 [facility] MCH (RBC) [Entitic mass] 28.5 pg 27.0-32.0 [facility] MCHC Auto (RBC) [Mass/Vol]Or dered By: Jonathan Dillard on 06-28-2023 MCHC (RBC) [Mass/Vol] 28.0 g/dL 32-36 [facility] No Panel InformationOrdered By: Jonathan Dillard on 06-28-2023 Estimated GFR (MDRD) Amer 115 mL/min >60 [facility] Comment on above: GFR Calc Estimated GFR (MDRD) Non-Af Amer 95 mL/min >60 [facility] Comment on above: Non- GFR Calc Platelets bldOrdered By: Mervat Dillard on 06-28-2023 Platelets (Bld) [#/Vol] 111 10*3/uL 150-450 [facility] Serum or plasma albumin celina urement (mass/volume)Ordered By: Jonathan Dillard on 06-28-2023 Albumin [Mass/Vol] 2.6 g/dL 3.2-5.0 [facility] Serum or plasma albumin/glob ulin mass ratioOrdered By: Jonathan Dillard on 06-28-2023 Albumin/Globulin [Mass ratio] 0.6 {ratio} 0.9-2.4 [facility] Serum or plasma calcium celina urement (mass/volume)Ordered By: Jonathan Dillard on 06-28-2023 Calcium [Mass/Vol] 9.0 mg/dL 8.5-10.1 [facility] Serum or plasma creatinine m easurement (mass/volume)Ordered By: Jonathan Dillard on 06-28-2023 Creatinine [Mass/Vol] 0.65 mg/dL 0.55-1.02 [facility] Comment on above: The validity of the calculated GFR & GFRAA in patients over 70 years has not been determined. Clinical correlation is essential. Serum or plasma urea nitroge n measurement (mass/volume)Ordered By: Jonathan Dillard on 06-28-2023 Urea nitrogen [Mass/Vol] 21 mg/dL 7-18 [facility] Thin prep Papanicolaou smear with manual screeningOrdered By: Jonathan Dillard on 06-28-2023 Thin prep Papanicolaou smear with manual screening 12 U/L 15-37 [facility] Thin prep Papanicolaou smear with manual screening 1 5-15 [facility] Basophil percentageOrdered B y: Jonathan Dillard on 06-13-2023 Bilirubin [Mass/Vol] 0.40 mg/dL 0.20-1.00 [facility] Comment on above: For patients on eltr ombopag therapy, use of Dimension Max TBIL is not recommended. Chloride [Moles/Vol] 104 mmol/L 98-107 [facility] Glucose [Mass/Vol] 114 mg/dL 74-106 [facility] Comment on above: Fasting Glucose resu lt from 100 to 125 mg/dL suggests IMPAIRED HOMEOSTASIS per A.D.A. criteria. Potassium [Moles/Vol] 4.0 mmol/L 3.5-5.1 [facility] Protein [Mass/Vol] 6.8 g/dL 6.4-8.2 [facility] Sodium [Moles/Vol] 146 mmol/L 136-145 [facility] WBC (Bld) [#/Vol] 4.5 10*3/uL 4.4-11.0 [facility] Blood erythrocytes count (nu mber/volume)Ordered By: Jonathan Dillard on 06-13-2023 RBC (Bld) [#/Vol] 3.13 10*6/uL 4.2-5.4 [facility] Blood hemoglobin measurement (mass/volume)Ordered By: Jonathan Dillard on 06-13-2023 Hemoglobin (Bld) [Mass/Vol] 9.0 g/dL 12.0-15.0 [facility] Blood platelet mean volumeOr dered By: Jonathan Dillard on 06-13-2023 Platelet mean volume (Bld) [Entitic vol] 9.1 fL 6.2-12.0 [facility] Determination of erythrocyte mean corpuscular volume (MCV)Ordered By: Jonathan Dillard on 06-13-2023 MCV (RBC) [Entitic vol] 100.6 fL 81-99 [facility] Hematocrit Auto (Bld) [Volum e fraction]Ordered By: Jonathan Dillard on 06-13-2023 Hematocrit (Bld) [Volume fraction] 31.5 % 37-47 [facility] - Chemistry and C hemistry - challengeOrdered By: Jonathan Dillard on 06-13-2023 ALP [Catalytic activity/Vol] 72 U/L 45-117 [facility] ALT [Catalytic activity/Vol] 14 U/L 13-56 [facility] CO2 [Moles/Vol] 42.0 mmol/L 21.0-32.0 [facility] Globulin (S) [Mass/Vol] 4.2 g/dL 2.2-4.2 [facility] Urea nitrogen/Creatinine [Mass ratio] 30.8 mg/mg 10-20 [facility] - Hematology and Cell countsOrdered By: Jonathan Dillard on 06-13-2023 Erythrocyte distribution width (RBC) [Entitic vol] 51.3 fL 35.1-43.9 [facility] Erythrocyte distribution width (RBC) [Ratio] 13.9 % 11.6-14.6 [facility] MCH (RBC) [Entitic mass] 28.8 pg 27.0-32.0 [facility] MCHC Auto (RBC) [Mass/Vol]Or dered By: Jonathan Dillard on 06-13-2023 MCHC (RBC) [Mass/Vol] 28.6 g/dL 32-36 [facility] No Panel InformationOrdered By: Jonathan Dillard on 06-13-2023 Estimated GFR (MDRD) Amer 115 mL/min >60 [facility] Comment on above: GFR Calc Estimated GFR (MDRD) Non-Af Amer 95 mL/min >60 [facility] Comment on above: Non- GFR Calc Platelets bldOrdered By: Mervat Dillard on 06-13-2023 Platelets (Bld) [#/Vol] 112 10*3/uL 150-450 [facility] Serum or plasma albumin celina urement (mass/volume)Ordered By: Jonathan Dillard on 06-13-2023 Albumin [Mass/Vol] 2.6 g/dL 3.2-5.0 [facility] Serum or plasma albumin/glob ulin mass ratioOrdered By: Jonathan Dillard on 06-13-2023 Albumin/Globulin [Mass ratio] 0.6 {ratio} 0.9-2.4 [facility] Serum or plasma calcium celina urement (mass/volume)Ordered By: Jonathan Dillard on 06-13-2023 Calcium [Mass/Vol] 8.9 mg/dL 8.5-10.1 [facility] Serum or plasma creatinine m easurement (mass/volume)Ordered By: Jonathan Dillard on 06-13-2023 Creatinine [Mass/Vol] 0.65 mg/dL 0.55-1.02 [facility] Comment on above: The validity of the calculated GFR & GFRAA in patients over 70 years has not been determined. Clinical correlation is essential. Serum or plasma urea nitroge n measurement (mass/volume)Ordered By: Jonathan Dillard on 06-13-2023 Urea nitrogen [Mass/Vol] 20 mg/dL 7-18 [facility] Thin prep Papanicolaou smear with manual screeningOrdered By: Jonathan Dillard on 06-13-2023 Thin prep Papanicolaou smear with manual screening 11 U/L 15-37 [facility] Thin prep Papanicolaou smear with manual screening 0 5-15 [facility] Absolute lymphocyte countOrd ered By: Delfin Jeffries on 05-04-2023 Lymphocytes Auto (Unsp spec) [#/Vol] 0.78 10*3/uL 0.83-4.51 [facility] Basophil percentageOrdered B y: Delfin Jeffries on 05-04-2023 Basophils/100 WBC (Bld) 0.2 % 0-1 [facility] Bilirubin [Mass/Vol] 0.40 mg/dL 0.20-1.00 [facility] Comment on above: For patients on eltr ombopag therapy, use of Dimension Max TBIL is not recommended. Chloride [Moles/Vol] 104 mmol/L 98-107 [facility] Eosinophils/100 WBC (Bld) 1.3 % 0-5 [facility] Glucose [Mass/Vol] 175 mg/dL 74-106 [facility] Comment on above: Fasting Glucose resu lt greater than or equal to 126 mg/dL suggests DIABETES MELLITUS per A.D.A. criteria. LDH [Catalytic activity/Vol] 125 U/L 84-246 [facility] Neutrophils (Bld) [#/Vol] 4.2 10*3/uL 2.0-7.7 [facility] Neutrophils/100 WBC (Bld) 79.1 % 47-70 [facility] Potassium [Moles/Vol] 4.0 mmol/L 3.5-5.1 [facility] Protein [Mass/Vol] 7.5 g/dL 6.4-8.2 [facility] Sodium [Moles/Vol] 144 mmol/L 136-145 [facility] WBC (Bld) [#/Vol] 5.3 10*3/uL 4.4-11.0 [facility] Blood erythrocytes count (nu mber/volume)Ordered By: Delfin Jeffries on 05-04-2023 RBC (Bld) [#/Vol] 3.49 10*6/uL 4.2-5.4 [facility] Blood hemoglobin measurement (mass/volume)Ordered By: Delfin Jeffries on 05-04-2023 Hemoglobin (Bld) [Mass/Vol] 10.2 g/dL 12.0-15.0 [facility] Blood lymphocytes/100 leukoc ytesOrdered By: Delfin Jeffries on 05-04-2023 Lymphocytes/100 WBC (Bld) 14.7 % 19-41 [facility] Blood monocytes/100 leukocyt esOrdered By: Delfin Jeffries on 05-04-2023 Monocytes/100 WBC (Bld) 4.3 % 0-10 [facility] Blood platelet mean volumeOr dered By: Delfin Jeffries on 05-04-2023 Platelet mean volume (Bld) [Entitic vol] 8.6 fL 6.2-12.0 [facility] Determination of erythrocyte mean corpuscular volume (MCV)Ordered By: Delfin Jeffries on 05-04-2023 MCV (RBC) [Entitic vol] 99.7 fL 81-99 [facility] Hematocrit Auto (Bld) [Volum e fraction]Ordered By: Delfin Jeffries on 05-04-2023 Hematocrit (Bld) [Volume fraction] 34.8 % 37-47 [facility] Hemoglobin in reticulocytes (mass per reticulocyte)Ordered By: Delfin Jeffries on 05-04-2023 Hemoglobin (Reticulocytes) [Entitic mass] 31.0 pg 30-35 [facility] Iron measurement (mass/mass) Ordered By: Delfin Jeffries on 05-04-2023 Iron (Unsp spec) [Mass/Mass] 42 ug/dL 50-170 [facility] Laboratory - Chemistry and C hemistry - challengeOrdered By: Delfin Nesha on 05-04-2023 ALP [Catalytic activity/Vol] 84 U/L 45-117 [facility] ALT [Catalytic activity/Vol] 21 U/L 13-56 [facility] CO2 [Moles/Vol] 39.0 mmol/L 21.0-32.0 [facility] Globulin (S) [Mass/Vol] 4.5 g/dL 2.2-4.2 [facility] Urea nitrogen/Creatinine [Mass ratio] 32.1 mg/mg 10-20 [facility] - Hematology and Cell countsOrdered By: Delfin Nesha on 05-04-2023 Erythrocyte distribution width (RBC) [Entitic vol] 51.9 fL 35.1-43.9 [facility] Erythrocyte distribution width (RBC) [Ratio] 14.6 % 11.6-14.6 [facility] Immature granulocytes/100 WBC (Bld) 0.400 % 0.0-0.9 [facility] Comment on above: IG% - Immature Granu locytes (promyelocytes, myelocytes and metamyelocytes) > 1% indicates that a LEFT SHIFT is Present. MCH (RBC) [Entitic mass] 29.2 pg 27.0-32.0 [facility] Nucleated RBC/100 WBC (Bld) [Ratio] 0 % 0-5 [facility] MCHC Auto (RBC) [Mass/Vol]Or dered By: Delfin Jeffries on 05-04-2023 MCHC (RBC) [Mass/Vol] 29.3 g/dL 32-36 [facility] No Panel InformationOrdered By: Delfin Jeffries on 05-04-2023 Estimated GFR (MDRD) Amer 103 mL/min >60 [facility] Comment on above: GFR Calc Estimated GFR (MDRD) Non-Af Amer 85 mL/min >60 [facility] Comment on above: Non- GFR Calc Immature Reticulocyte Fraction 26.90 % 3.00-15.90 [facility] Reticulocyte Count 2.39 % 0.5-1.5 [facility] Total Iron Binding Capacity 197 ug/dL 250-450 [facility] Platelets bldOrdered By: Luciano Jeffries on 05-04-2023 Platelets (Bld) [#/Vol] 107 10*3/uL 150-450 [facility] Serum or plasma albumin celina urement (mass/volume)Ordered By: Delfin Jeffries on 05-04-2023 Albumin [Mass/Vol] 3.0 g/dL 3.2-5.0 [facility] Serum or plasma albumin/glob ulin mass ratioOrdered By: Delfin Jeffries on 05-04-2023 Albumin/Globulin [Mass ratio] 0.7 {ratio} 0.9-2.4 [facility] Serum or plasma calcium celina urement (mass/volume)Ordered By: Delfin Jeffries on 05-04-2023 Calcium [Mass/Vol] 8.7 mg/dL 8.5-10.1 [facility] Serum or plasma creatinine m easurement (mass/volume)Ordered By: Delfin Jeffries on 05-04-2023 Creatinine [Mass/Vol] 0.72 mg/dL 0.55-1.02 [facility] Comment on above: The validity of the calculated GFR & GFRAA in patients over 70 years has not been determined. Clinical correlation is essential. Serum or plasma ferritin carter surement (mass/volume)Ordered By: Delfin Jeffries on 05-04-2023 Ferritin [Mass/Vol] 192 ng/mL 8-252 [facility] Serum or plasma iron saturat ion measurement (mass fraction)Ordered By: Delfin Jeffries on 05-04-2023 Iron saturation [Mass fraction] 21.3 % 15.0-55.0 [facility] Serum or plasma urea nitroge n measurement (mass/volume)Ordered By: Delfin Jeffries on 05-04-2023 Urea nitrogen [Mass/Vol] 23 mg/dL 7-18 [facility] Thin prep Papanicolaou smear with manual screeningOrdered By: Delfin Jeffries on 05-04-2023 Thin prep Papanicolaou smear with manual screening 16 U/L 15-37 [facility] Thin prep Papanicolaou smear with manual screening 1 5-15 [facility] Absolute lymphocyte countOrd ered By: Dr. Vela on 04-19-2023 Lymphocytes Auto (Unsp spec) [#/Vol] 0.71 10*3/uL 0.83-4.51 [facility] Basophil percentageOrdered B y: Dr. Vela on 04-19-2023 Basophil percentage 0 SEEN /hpf 0-5 [facility] Basophils/100 WBC (Bld) 0.2 % 0-1 [facility] Bilirubin [Mass/Vol] 0.40 mg/dL 0.20-1.00 [facility] Comment on above: For patients on eltr ombopag therapy, use of Dimension Max TBIL is not recommended. Chloride [Moles/Vol] 102 mmol/L 98-107 [facility] Eosinophils/100 WBC (Bld) 0.9 % 0-5 [facility] Glucose [Mass/Vol] 108 mg/dL 74-106 [facility] Comment on above: Fasting Glucose resu lt from 100 to 125 mg/dL suggests IMPAIRED HOMEOSTASIS per A.D.A. criteria. Neutrophils (Bld) [#/Vol] 5.2 10*3/uL 2.0-7.7 [facility] Neutrophils/100 WBC (Bld) 81.7 % 47-70 [facility] Potassium [Moles/Vol] 3.9 mmol/L 3.5-5.1 [facility] Protein [Mass/Vol] 7.7 g/dL 6.4-8.2 [facility] Sodium [Moles/Vol] 146 mmol/L 136-145 [facility] WBC (Bld) [#/Vol] 6.3 10*3/uL 4.4-11.0 [facility] Bilirubin Test strip Ql (U)O rdered By: Dr. Vela on 04-19-2023 Bilirubin Ql (U) Negative Negative [facility] Blood erythrocytes count (nu mber/volume)Ordered By: Dr. Vela on 04-19-2023 RBC (Bld) [#/Vol] 3.35 10*6/uL 4.2-5.4 [facility] Blood hemoglobin measurement (mass/volume)Ordered By: Dr. Vela on 04-19-2023 Hemoglobin (Bld) [Mass/Vol] 9.6 g/dL 12.0-15.0 [facility] Blood lymphocytes/100 leukoc ytesOrdered By: Dr. Vela on 04-19-2023 Lymphocytes/100 WBC (Bld) 11.2 % 19-41 [facility] Blood monocytes/100 leukocyt esOrdered By: Dr. Vela on 04-19-2023 Monocytes/100 WBC (Bld) 5.5 % 0-10 [facility] Blood platelet mean volumeOr dered By: Dr. Vela on 04-19-2023 Platelet mean volume (Bld) [Entitic vol] 9.5 fL 6.2-12.0 [facility] Determination of erythrocyte mean corpuscular volume (MCV)Ordered By: Dr. Vela on 04-19-2023 MCV (RBC) [Entitic vol] 98.5 fL 81-99 [facility] Hematocrit Auto (Bld) [Volum e fraction]Ordered By: Dr. Vela on 04-19-2023 Hematocrit (Bld) [Volume fraction] 33.0 % 37-47 [facility] Ketones Test strip Ql (U)Ord ered By: Dr. Vela on 04-19-2023 Ketones Ql (U) Negative Negative [facility] Laboratory - Chemistry and C hemistry - challengeOrdered By: Dr. Vela on 04-19-2023 ALP [Catalytic activity/Vol] 96 U/L 45-117 [facility] ALT [Catalytic activity/Vol] 21 U/L 13-56 [facility] CO2 [Moles/Vol] 41.0 mmol/L 21.0-32.0 [facility] Globulin (S) [Mass/Vol] 4.6 g/dL 2.2-4.2 [facility] Urea nitrogen/Creatinine [Mass ratio] 36.2 mg/mg 10-20 [facility] - Hematology and Cell countsOrdered By: Dr. Vela on 04-19-2023 Erythrocyte distribution width (RBC) [Entitic vol] 50.7 fL 35.1-43.9 [facility] Erythrocyte distribution width (RBC) [Ratio] 14.2 % 11.6-14.6 [facility] Immature granulocytes/100 WBC (Bld) 0.500 % 0.0-0.9 [facility] Comment on above: IG% - Immature Granu locytes (promyelocytes, myelocytes and metamyelocytes) > 1% indicates that a LEFT SHIFT is Present. MCH (RBC) [Entitic mass] 28.7 pg 27.0-32.0 [facility] Nucleated RBC/100 WBC (Bld) [Ratio] 0 % 0-5 [facility] MCHC Auto (RBC) [Mass/Vol]Or dered By: Dr. Vela on 04-19-2023 MCHC (RBC) [Mass/Vol] 29.1 g/dL 32-36 [facility] Mucus LM Ql (Urine sed)Order ed By: Dr. Vela on 04-19-2023 Mucus Ql (Urine sed) 0 SEEN /hpf [facility] Nitrite Test strip Ql (U)Ord ered By: Dr. Vela on 04-19-2023 Nitrite Ql (U) Negative Negative [facility] No Panel InformationOrdered By: Dr. Vela on 04-19-2023 Estimated Creatinine Clearance Calc 45.09 ml/min [facility] Estimated GFR (MDRD) Amer 118 mL/min >60 [facility] Comment on above: GFR Calc Estimated GFR (MDRD) Non-Af Amer 97 mL/min >60 [facility] Comment on above: Non- GFR Calc Platelets bldOrdered By: Dr. Vela on 04-19-2023 Platelets (Bld) [#/Vol] 103 10*3/uL 150-450 [facility] Protein Test strip Ql (U)Ord ered By: Dr. Vela on 04-19-2023 Protein Ql (U) Negative Negative [facility] Serum or plasma albumin celina urement (mass/volume)Ordered By: Dr. Vela on 04-19-2023 Albumin [Mass/Vol] 3.1 g/dL 3.2-5.0 [facility] Serum or plasma albumin/glob ulin mass ratioOrdered By: Dr. Vela on 04-19-2023 Albumin/Globulin [Mass ratio] 0.7 {ratio} 0.9-2.4 [facility] Serum or plasma calcium celina urement (mass/volume)Ordered By: Dr. Vela on 04-19-2023 Calcium [Mass/Vol] 9.3 mg/dL 8.5-10.1 [facility] Serum or plasma creatinine m easurement (mass/volume)Ordered By: Dr. Vela on 04-19-2023 Creatinine [Mass/Vol] 0.64 mg/dL 0.55-1.02 [facility] Comment on above: The validity of the calculated GFR & GFRAA in patients over 70 years has not been determined. Clinical correlation is essential. Serum or plasma urea nitroge n measurement (mass/volume)Ordered By: Dr. Vela on 04-19-2023 Urea nitrogen [Mass/Vol] 23 mg/dL 7-18 [facility] Squamous epithelial cells de tection in urine sediment by light microscopyOrdered By: Dr. Vela on 04-19-2023 Epithelial cells.squamous LM Ql (Urine sed) 0 SEEN /hpf 5-10 [facility] Thin prep Papanicolaou smear with manual screeningOrdered By: Dr. Vela on 04-19-2023 Thin prep Papanicolaou smear with manual screening 16 U/L 15-37 [facility] Thin prep Papanicolaou smear with manual screening 3 5-15 [facility] Urine blood detectionOrdered By: Dr. Vela on 04-19-2023 RBC Ql (U) Negative Negative [facility] RBC Ql (U) 0 SEEN /hpf 0-5 [facility] Urine clarityOrdered By: Dr. Vela on 04-19-2023 Clarity (U) Clear Clear [facility] Urine color determinationOrd ered By: Dr. Vela on 04-19-2023 Color (U) Yellow Yellow [facility] Urine glucose detectionOrder ed By: Dr. Vela on 04-19-2023 Glucose Ql (U) Normal mg/dl Normal [facility] Urine leukocyte esterase det ection by dipstickOrdered By: Dr. Vela on 04-19-2023 Leukocyte esterase Test strip Ql (U) Negative Negative [facility] Urine pHOrdered By: Dr. Isaias barkley on 04-19-2023 pH (U) 6.5 [pH] 5.0 - 8.0 [facility] Urine sediment bacteria coun t by microscopy (number/high power field)Ordered By: Dr. Vela on 04-19-2023 Bacteria LM.HPF (Urine sed) [#/Area] 0 /[HPF] None Seen [facility] Urine specific gravity measu rementOrdered By: Dr. Vlea on 04-19-2023 Specific gravity (U) [Rel density] 1.010 1.002-1.030 [facility] Urobilinogen Auto test strip Ql (U)Ordered By: Dr. Vela on 04-19-2023 Urobilinogen Ql (U) Normal mg/dl Normal [facility] Culture, urineOrdered By: Higuera on 04-15-2023 Bacteria identified Cx Nom (U) Presumptive E. coli [facility] Bacteria identified Cx Nom (U) Klebsiella pneumoniae sp pneum [facility] Basophil percentageOrdered B y: Jonathan Dillard on 04-12-2023 Basophil percentage 0-5 SEEN /hpf 0-5 [facility] Bilirubin [Mass/Vol] 0.50 mg/dL 0.20-1.00 [facility] Comment on above: For patients on eltr ombopag therapy, use of Dimension Max TBIL is not recommended. Chloride [Moles/Vol] 102 mmol/L 98-107 [facility] Glucose [Mass/Vol] 122 mg/dL 74-106 [facility] Comment on above: Fasting Glucose resu lt from 100 to 125 mg/dL suggests IMPAIRED HOMEOSTASIS per A.D.A. criteria. Potassium [Moles/Vol] 3.7 mmol/L 3.5-5.1 [facility] Protein [Mass/Vol] 6.9 g/dL 6.4-8.2 [facility] Sodium [Moles/Vol] 145 mmol/L 136-145 [facility] WBC (Bld) [#/Vol] 5.1 10*3/uL 4.4-11.0 [facility] Bilirubin Test strip Ql (U)O rdered By: Jonathan Dillard on 04-12-2023 Bilirubin Ql (U) Negative Negative [facility] Blood erythrocytes count (nu mber/volume)Ordered By: Jonathan Dillard on 04-12-2023 RBC (Bld) [#/Vol] 3.16 10*6/uL 4.2-5.4 [facility] Blood hemoglobin measurement (mass/volume)Ordered By: Jonathan Dillard on 04-12-2023 Hemoglobin (Bld) [Mass/Vol] 8.9 g/dL 12.0-15.0 [facility] Blood platelet mean volumeOr dered By: Jonathan Dillard on 04-12-2023 Platelet mean volume (Bld) [Entitic vol] 9.1 fL 6.2-12.0 [facility] Culture, urineOrdered By: Higuera on 04-12-2023 Bacteria identified Cx Nom (U) Presumptive E. coli [facility] Bacteria identified Cx Nom (U) Klebsiella pneumoniae sp pneum [facility] Determination of erythrocyte mean corpuscular volume (MCV)Ordered By: Jonathan Dillard on 04-12-2023 MCV (RBC) [Entitic vol] 99.7 fL 81-99 [facility] Hematocrit Auto (Bld) [Volum e fraction]Ordered By: Jonathan Dillard on 04-12-2023 Hematocrit (Bld) [Volume fraction] 31.5 % 37-47 [facility] Ketones Test strip Ql (U)Ord ered By: Jonathan Dillard on 04-12-2023 Ketones Ql (U) Negative Negative [facility] - Chemistry and C hemistry - challengeOrdered By: Jonathan Dillard on 04-12-2023 ALP [Catalytic activity/Vol] 83 U/L 45-117 [facility] ALT [Catalytic activity/Vol] 20 U/L 13-56 [facility] CO2 [Moles/Vol] 42.0 mmol/L 21.0-32.0 [facility] Globulin (S) [Mass/Vol] 4.1 g/dL 2.2-4.2 [facility] Urea nitrogen/Creatinine [Mass ratio] 34.6 mg/mg 10-20 [facility] - Hematology and Cell countsOrdered By: Jonathan Dillard on 04-12-2023 Erythrocyte distribution width (RBC) [Entitic vol] 53.0 fL 35.1-43.9 [facility] Erythrocyte distribution width (RBC) [Ratio] 14.5 % 11.6-14.6 [facility] MCH (RBC) [Entitic mass] 28.2 pg 27.0-32.0 [facility] MCHC Auto (RBC) [Mass/Vol]Or dered By: Jonathan Dillard on 04-12-2023 MCHC (RBC) [Mass/Vol] 28.3 g/dL 32-36 [facility] Mucus LM Ql (Urine sed)Order ed By: Jonathan Dillard on 04-12-2023 Mucus Ql (Urine sed) 0 SEEN /hpf [facility] Nitrite Test strip Ql (U)Ord ered By: Jonathan Dillard on 04-12-2023 Nitrite Ql (U) Negative Negative [facility] No Panel InformationOrdered By: Jonathan Dillard on 04-12-2023 Estimated GFR (MDRD) Amer 112 mL/min >60 [facility] Comment on above: GFR Calc Estimated GFR (MDRD) Non-Af Amer 93 mL/min >60 [facility] Comment on above: Non- GFR Calc Platelets bldOrdered By: Mervat Dillard on 04-12-2023 Platelets (Bld) [#/Vol] 115 10*3/uL 150-450 [facility] Protein Test strip Ql (U)Ord ered By: Jonathan Dillard on 04-12-2023 Protein Ql (U) Negative Negative [facility] Serum or plasma albumin celina urement (mass/volume)Ordered By: Jonathan Dillard on 04-12-2023 Albumin [Mass/Vol] 2.8 g/dL 3.2-5.0 [facility] Serum or plasma albumin/glob ulin mass ratioOrdered By: Jonathan Dillard on 04-12-2023 Albumin/Globulin [Mass ratio] 0.7 {ratio} 0.9-2.4 [facility] Serum or plasma calcium celina urement (mass/volume)Ordered By: Jonathan Dillard on 04-12-2023 Calcium [Mass/Vol] 9.0 mg/dL 8.5-10.1 [facility] Serum or plasma creatinine m easurement (mass/volume)Ordered By: Jonathan Dillard on 04-12-2023 Creatinine [Mass/Vol] 0.66 mg/dL 0.55-1.02 [facility] Comment on above: The validity of the calculated GFR & GFRAA in patients over 70 years has not been determined. Clinical correlation is essential. Serum or plasma urea nitroge n measurement (mass/volume)Ordered By: Jonathan Dillard on 04-12-2023 Urea nitrogen [Mass/Vol] 23 mg/dL 7-18 [facility] Squamous epithelial cells de tection in urine sediment by light microscopyOrdered By: Jonathan Dillard on 04-12-2023 Epithelial cells.squamous LM Ql (Urine sed) 0-5 SEEN /hpf 5-10 [facility] Thin prep Papanicolaou smear with manual screeningOrdered By: Jonathan Dillard on 04-12-2023 Thin prep Papanicolaou smear with manual screening 14 U/L 15-37 [facility] Thin prep Papanicolaou smear with manual screening 1 5-15 [facility] Urine blood detectionOrdered By: Jonathan Dillard on 04-12-2023 RBC Ql (U) Negative Negative [facility] RBC Ql (U) 0-5 SEEN /hpf 0-5 [facility] Urine clarityOrdered By: Mervat Dillard on 04-12-2023 Clarity (U) Clear Clear [facility] Urine color determinationOrd ered By: Jonathan Dillard on 04-12-2023 Color (U) Yellow Yellow [facility] Urine glucose detectionOrder ed By: Jonathan Dillard on 04-12-2023 Glucose Ql (U) Normal mg/dl Normal [facility] Urine leukocyte esterase det ection by dipstickOrdered By: Jonathan Dillard on 04-12-2023 Leukocyte esterase Test strip Ql (U) 25 /ul Negative [facility] Urine pHOrdered By: Jonathan ramirez on 04-12-2023 pH (U) 5.0 [pH] 5.0 - 8.0 [facility] Urine sediment bacteria coun t by microscopy (number/high power field)Ordered By: Jonathan Dillard on 04-12-2023 Bacteria LM.HPF (Urine sed) [#/Area] 0 /[HPF] None Seen [facility] Urine specific gravity measu rementOrdered By: Jonathan Dillard on 04-12-2023 Specific gravity (U) [Rel density] 1.020 1.002-1.030 [facility] Urobilinogen Auto test strip Ql (U)Ordered By: Jonathan Dillard on 04-12-2023 Urobilinogen Ql (U) Normal mg/dl Normal [facility] Basophil percentageOrdered B y: Jonathan Dillard on 03-28-2023 WBC (Bld) [#/Vol] 4.3 10*3/uL 4.4-11.0 [facility] Blood erythrocytes count (nu mber/volume)Ordered By: Jonathan Dillard on 03-28-2023 RBC (Bld) [#/Vol] 3.38 10*6/uL 4.2-5.4 [facility] Blood hemoglobin measurement (mass/volume)Ordered By: Jonathan Dillard on 03-28-2023 Hemoglobin (Bld) [Mass/Vol] 9.5 g/dL 12.0-15.0 [facility] Blood platelet mean volumeOr dered By: Jonathan Dillard on 03-28-2023 Platelet mean volume (Bld) [Entitic vol] 9.3 fL 6.2-12.0 [facility] Determination of erythrocyte mean corpuscular volume (MCV)Ordered By: Jonathan Dillard on 03-28-2023 MCV (RBC) [Entitic vol] 100.6 fL 81-99 [facility] Hematocrit Auto (Bld) [Volum e fraction]Ordered By: Jonathan Dillard on 03-28-2023 Hematocrit (Bld) [Volume fraction] 34.0 % 37-47 [facility] - Hematology and Cell countsOrdered By: Jonathan Dillard on 03-28-2023 Erythrocyte distribution width (RBC) [Entitic vol] 54.0 fL 35.1-43.9 [facility] Erythrocyte distribution width (RBC) [Ratio] 14.7 % 11.6-14.6 [facility] MCH (RBC) [Entitic mass] 28.1 pg 27.0-32.0 [facility] MCHC Auto (RBC) [Mass/Vol]Or dered By: Jonathan Dillard on 03-28-2023 MCHC (RBC) [Mass/Vol] 27.9 g/dL 32-36 [facility] Platelets bldOrdered By: Mervat Dillard on 03-28-2023 Platelets (Bld) [#/Vol] 116 10*3/uL 150-450 [facility] Absolute lymphocyte countOrd ered By: Dr. eJffries on 03-09-2023 Lymphocytes Auto (Unsp spec) [#/Vol] 0.69 10*3/uL 0.83-4.51 [facility] Basophil percentageOrdered B y: Dr. Jeffries on 03-09-2023 Basophil percentage 3.0 mg/dL 2.5-4.9 [facility] Basophils/100 WBC (Bld) 0.2 % 0-1 [facility] Eosinophils/100 WBC (Bld) 0.9 % 0-5 [facility] LDH [Catalytic activity/Vol] 131 U/L 84-246 [facility] Neutrophils (Bld) [#/Vol] 4.4 10*3/uL 2.0-7.7 [facility] Neutrophils/100 WBC (Bld) 80.2 % 47-70 [facility] WBC (Bld) [#/Vol] 5.5 10*3/uL 4.4-11.0 [facility] Blood erythrocytes count (nu mber/volume)Ordered By: Dr. Jeffries on 03-09-2023 RBC (Bld) [#/Vol] 3.49 10*6/uL 4.2-5.4 [facility] Blood hemoglobin measurement (mass/volume)Ordered By: Dr. Jeffries on 03-09-2023 Hemoglobin (Bld) [Mass/Vol] 9.6 g/dL 12.0-15.0 [facility] Blood lymphocytes/100 leukoc ytesOrdered By: Dr. Jeffries on 03-09-2023 Lymphocytes/100 WBC (Bld) 12.6 % 19-41 [facility] Blood monocytes/100 leukocyt esOrdered By: Dr. Jeffries on 03-09-2023 Monocytes/100 WBC (Bld) 5.7 % 0-10 [facility] Blood platelet mean volumeOr dered By: Dr. Jeffries on 03-09-2023 Platelet mean volume (Bld) [Entitic vol] 9.6 fL 6.2-12.0 [facility] Determination of erythrocyte mean corpuscular volume (MCV)Ordered By: Dr. Jeffries on 03-09-2023 MCV (RBC) [Entitic vol] 97.7 fL 81-99 [facility] Hematocrit Auto (Bld) [Volum e fraction]Ordered By: Dr. Jeffries on 03-09-2023 Hematocrit (Bld) [Volume fraction] 34.1 % 37-47 [facility] Iron measurement (mass/mass) Ordered By: Dr. Jeffries on 03-09-2023 Iron (Unsp spec) [Mass/Mass] 30 ug/dL 50-170 [facility] - Chemistry and C hemistry - challengeOrdered By: Dr. Jeffries on 03-09-2023 Cobalamin (Vitamin B12) [Mass/Vol] 669 pg/mL 211-911 [facility] Magnesium [Mass/Vol] 2.0 mg/dL 1.6-2.6 [facility] Laboratory - Hematology and Cell countsOrdered By: Dr. Jeffries on 03-09-2023 Erythrocyte distribution width (RBC) [Entitic vol] 52.1 fL 35.1-43.9 [facility] Erythrocyte distribution width (RBC) [Ratio] 14.6 % 11.6-14.6 [facility] Immature granulocytes/100 WBC (Bld) 0.400 % 0.0-0.9 [facility] Comment on above: IG% - Immature Granu locytes (promyelocytes, myelocytes and metamyelocytes) > 1% indicates that a LEFT SHIFT is Present. MCH (RBC) [Entitic mass] 27.5 pg 27.0-32.0 [facility] Nucleated RBC/100 WBC (Bld) [Ratio] 0 % 0-5 [facility] MCHC Auto (RBC) [Mass/Vol]Or dered By: Dr. Jeffries on 03-09-2023 MCHC (RBC) [Mass/Vol] 28.2 g/dL 32-36 [facility] No Panel InformationOrdered By: Dr. Jeffries on 03-09-2023 Total Iron Binding Capacity 196 ug/dL 250-450 [facility] Platelets bldOrdered By: Dr. Jeffries on 03-09-2023 Platelets (Bld) [#/Vol] 109 10*3/uL 150-450 [facility] Serum or plasma ferritin carter surement (mass/volume)Ordered By: Dr. Jeffries on 03-09-2023 Ferritin [Mass/Vol] 67 ng/mL 8-252 [facility] Serum or plasma iron saturat ion measurement (mass fraction)Ordered By: Dr. Jeffries on 03-09-2023 Iron saturation [Mass fraction] 15.3 % 15.0-55.0 [facility] No Panel InformationOrdered By: Jonathan Dillard on 03-08-2023 CA 125 Antigen 28.1 U/mL 0.0-38.1 [facility] Comment on above: [facility] El ectrochemiluminescence Immunoassay(ECLIA)Values obtained with different assay methods or kits cannotbe used interchangeably. Results cannot be interpreted asabsolute evidence of the presence or absence of malignantdisease.Performed at: [facility] [address] [id number] Director: Mark Woo PhD, Phone: [phone] Basophil percentageOrdered B y: Jonathan Dillard on 03-04-2023 Chloride [Moles/Vol] 102 mmol/L 98-107 [facility] Glucose [Mass/Vol] 154 mg/dL 74-106 [facility] Comment on above: Fasting Glucose resu lt greater than or equal to 126 mg/dL suggests DIABETES MELLITUS per A.D.A. criteria. Potassium [Moles/Vol] 3.5 mmol/L 3.5-5.1 [facility] Sodium [Moles/Vol] 144 mmol/L 136-145 [facility] Laboratory - Chemistry and C hemistry - challengeOrdered By: Jonathan Dillard on 03-04-2023 CO2 [Moles/Vol] 44.0 mmol/L 21.0-32.0 [facility] Urea nitrogen/Creatinine [Mass ratio] 29.9 mg/mg 10-20 [facility] No Panel InformationOrdered By: Jonathan Dillard on 03-04-2023 Estimated GFR (MDRD) Amer 111 mL/min >60 [facility] Comment on above: GFR Calc Estimated GFR (MDRD) Non-Af Amer 92 mL/min >60 [facility] Comment on above: Non- GFR Calc Serum or plasma calcium celina urement (mass/volume)Ordered By: Jonathan Dillard on 03-04-2023 Calcium [Mass/Vol] 9.0 mg/dL 8.5-10.1 [facility] Serum or plasma creatinine m easurement (mass/volume)Ordered By: Jonathan Dillard on 03-04-2023 Creatinine [Mass/Vol] 0.67 mg/dL 0.55-1.02 [facility] Comment on above: The validity of the calculated GFR & GFRAA in patients over 70 years has not been determined. Clinical correlation is essential. Serum or plasma urea nitroge n measurement (mass/volume)Ordered By: Jonathan Dillard on 03-04-2023 Urea nitrogen [Mass/Vol] 20 mg/dL 7-18 [facility] Thin prep Papanicolaou smear with manual screeningOrdered By: Jonathan Dillard on 03-04-2023 Thin prep Papanicolaou smear with manual screening -2 5-15 [facility] Basophil percentageOrdered B y: Jonathan Dillard on 02-28-2023 Chloride [Moles/Vol] 104 mmol/L 98-107 [facility] Glucose [Mass/Vol] 150 mg/dL 74-106 [facility] Comment on above: Fasting Glucose resu lt greater than or equal to 126 mg/dL suggests DIABETES MELLITUS per A.D.A. criteria. Potassium [Moles/Vol] 3.4 mmol/L 3.5-5.1 [facility] Sodium [Moles/Vol] 144 mmol/L 136-145 [facility] WBC (Bld) [#/Vol] 4.5 10*3/uL 4.4-11.0 [facility] Blood erythrocytes count (nu mber/volume)Ordered By: Jonathan Dillard on 02-28-2023 RBC (Bld) [#/Vol] 3.23 10*6/uL 4.2-5.4 [facility] Blood hemoglobin measurement (mass/volume)Ordered By: Jonathan Dillard on 02-28-2023 Hemoglobin (Bld) [Mass/Vol] 8.9 g/dL 12.0-15.0 [facility] Blood platelet mean volumeOr dered By: Jonathan Dillard on 02-28-2023 Platelet mean volume (Bld) [Entitic vol] 9.3 fL 6.2-12.0 [facility] Determination of erythrocyte mean corpuscular volume (MCV)Ordered By: Jonathan Dillard on 02-28-2023 MCV (RBC) [Entitic vol] 97.5 fL 81-99 [facility] Hematocrit Auto (Bld) [Volum e fraction]Ordered By: Jonathan Dillard on 02-28-2023 Hematocrit (Bld) [Volume fraction] 31.5 % 37-47 [facility] Laboratory - Chemistry and C hemistry - challengeOrdered By: Jonathan Dillard on 02-28-2023 CO2 [Moles/Vol] 41.0 mmol/L 21.0-32.0 [facility] Urea nitrogen/Creatinine [Mass ratio] 26.5 mg/mg 10-20 [facility] Laboratory - Hematology and Cell countsOrdered By: Jonathan Dillard on 02-28-2023 Erythrocyte distribution width (RBC) [Entitic vol] 51.0 fL 35.1-43.9 [facility] Erythrocyte distribution width (RBC) [Ratio] 14.2 % 11.6-14.6 [facility] MCH (RBC) [Entitic mass] 27.6 pg 27.0-32.0 [facility] MCHC Auto (RBC) [Mass/Vol]Or dered By: Jonathan Dillard on 02-28-2023 MCHC (RBC) [Mass/Vol] 28.3 g/dL 32-36 [facility] No Panel InformationOrdered By: Jonathan Dillard on 02-28-2023 Estimated GFR (MDRD) Amer 125 mL/min >60 [facility] Comment on above: GFR Calc Estimated GFR (MDRD) Non-Af Amer 104 mL/min >60 [facility] Comment on above: Non- GFR Calc Platelets bldOrdered By: Mervat Dillard on 02-28-2023 Platelets (Bld) [#/Vol] 130 10*3/uL 150-450 [facility] Serum or plasma calcium celina urement (mass/volume)Ordered By: Jonathan Dillard on 02-28-2023 Calcium [Mass/Vol] 8.9 mg/dL 8.5-10.1 [facility] Serum or plasma creatinine m easurement (mass/volume)Ordered By: Jonathan Dillard on 02-28-2023 Creatinine [Mass/Vol] 0.60 mg/dL 0.55-1.02 [facility] Comment on above: The validity of the calculated GFR & GFRAA in patients over 70 years has not been determined. Clinical correlation is essential. Serum or plasma urea nitroge n measurement (mass/volume)Ordered By: Jonathan Dillard on 02-28-2023 Urea nitrogen [Mass/Vol] 16 mg/dL 7-18 [facility] Thin prep Papanicolaou smear with manual screeningOrdered By: Jonathan Dillard on 02-28-2023 Thin prep Papanicolaou smear with manual screening -1 5-15 [facility] Absolute lymphocyte countOrd ered By: Dr. Jaime on 02-25-2023 Lymphocytes Auto (Unsp spec) [#/Vol] 0.74 10*3/uL 0.83-4.51 [facility] Basophil percentageOrdered B y: Dr. Jaime on 02-25-2023 Basophils/100 WBC (Bld) 0.2 % 0-1 [facility] Eosinophils/100 WBC (Bld) 1.2 % 0-5 [facility] Neutrophils (Bld) [#/Vol] 4.0 10*3/uL 2.0-7.7 [facility] Neutrophils/100 WBC (Bld) 79.1 % 47-70 [facility] WBC (Bld) [#/Vol] 5.1 10*3/uL 4.4-11.0 [facility] Bilirubin [Mass/Vol] 0.40 mg/dL 0.20-1.00 [facility] Comment on above: For patients on eltr ombopag therapy, use of Dimension Max TBIL is not recommended. Chloride [Moles/Vol] 106 mmol/L 98-107 [facility] Glucose [Mass/Vol] 106 mg/dL 74-106 [facility] Comment on above: Fasting Glucose resu lt from 100 to 125 mg/dL suggests IMPAIRED HOMEOSTASIS per A.D.A. criteria. Potassium [Moles/Vol] 4.3 mmol/L 3.5-5.1 [facility] Protein [Mass/Vol] 7.1 g/dL 6.4-8.2 [facility] Sodium [Moles/Vol] 142 mmol/L 136-145 [facility] Blood erythrocytes count (nu mber/volume)Ordered By: Dr. Jaime on 02-25-2023 RBC (Bld) [#/Vol] 3.46 10*6/uL 4.2-5.4 [facility] Blood hemoglobin measurement (mass/volume)Ordered By: Dr. Jaime on 02-25-2023 Hemoglobin (Bld) [Mass/Vol] 9.5 g/dL 12.0-15.0 [facility] Blood lymphocytes/100 leukoc ytesOrdered By: Dr. Jaime on 02-25-2023 Lymphocytes/100 WBC (Bld) 14.7 % 19-41 [facility] Blood monocytes/100 leukocyt esOrdered By: Dr. Jaime on 02-25-2023 Monocytes/100 WBC (Bld) 4.4 % 0-10 [facility] Blood platelet mean volumeOr dered By: Dr. Jaime on 02-25-2023 Platelet mean volume (Bld) [Entitic vol] 8.7 fL 6.2-12.0 [facility] COVID-19 virus antigen assay Ordered By: Dr. Jaime on 02-25-2023 SARS-CoV-2 (COVID-19) Ag IA.rapid Ql (Resp) [facility] Determination of erythrocyte mean corpuscular volume (MCV)Ordered By: Dr. Jaime on 02-25-2023 MCV (RBC) [Entitic vol] 98.3 fL 81-99 [facility] Hematocrit Auto (Bld) [Volum e fraction]Ordered By: Dr. Jaime on 02-25-2023 Hematocrit (Bld) [Volume fraction] 34.0 % 37-47 [facility] Laboratory - Chemistry and C hemistry - challengeOrdered By: Dr. Jaime on 02-25-2023 ALP [Catalytic activity/Vol] 69 U/L 45-117 [facility] ALT [Catalytic activity/Vol] 23 U/L 13-56 [facility] CO2 [Moles/Vol] 34.0 mmol/L 21.0-32.0 [facility] Globulin (S) [Mass/Vol] 4.5 g/dL 2.2-4.2 [facility] Urea nitrogen/Creatinine [Mass ratio] 27.0 mg/mg 10-20 [facility] Laboratory - Hematology and Cell countsOrdered By: Dr. Jaime on 02-25-2023 Erythrocyte distribution width (RBC) [Entitic vol] 52.0 fL 35.1-43.9 [facility] Erythrocyte distribution width (RBC) [Ratio] 14.5 % 11.6-14.6 [facility] Immature granulocytes/100 WBC (Bld) 0.400 % 0.0-0.9 [facility] Comment on above: IG% - Immature Granu locytes (promyelocytes, myelocytes and metamyelocytes) > 1% indicates that a LEFT SHIFT is Present. MCH (RBC) [Entitic mass] 27.5 pg 27.0-32.0 [facility] Nucleated RBC/100 WBC (Bld) [Ratio] 0 % 0-5 [facility] Laboratory - Microbiology an d Antimicrobial susceptibilityOrdered By: Dr. Monique on 02-25-2023 Bacteria identified Cx Nom (Bld) No growth in 5 days. [facility] MCHC Auto (RBC) [Mass/Vol]Or dered By: Dr. Jaime on 02-25-2023 MCHC (RBC) [Mass/Vol] 27.9 g/dL 32-36 [facility] No Panel InformationOrdered By: Dr. Jaime on 02-25-2023 Estimated Creatinine Clearance Calc 53.04 ml/min [facility] Estimated GFR (MDRD) Amer 84 mL/min >60 [facility] Comment on above: GFR Calc Estimated GFR (MDRD) Non-Af Amer 69 mL/min >60 [facility] Comment on above: Non- GFR Calc Platelets bldOrdered By: Dr. Jaime on 02-25-2023 Platelets (Bld) [#/Vol] 146 10*3/uL 150-450 [facility] Serum or plasma albumin celina urement (mass/volume)Ordered By: Dr. Jaime on 02-25-2023 Albumin [Mass/Vol] 2.6 g/dL 3.2-5.0 [facility] Serum or plasma albumin/glob ulin mass ratioOrdered By: Dr. Jaime on 02-25-2023 Albumin/Globulin [Mass ratio] 0.6 {ratio} 0.9-2.4 [facility] Serum or plasma calcium celina urement (mass/volume)Ordered By: Dr. Jaime on 02-25-2023 Calcium [Mass/Vol] 8.7 mg/dL 8.5-10.1 [facility] Serum or plasma creatinine m easurement (mass/volume)Ordered By: Dr. Jaime on 02-25-2023 Creatinine [Mass/Vol] 0.85 mg/dL 0.55-1.02 [facility] Comment on above: The validity of the calculated GFR & GFRAA in patients over 70 years has not been determined. Clinical correlation is essential. Serum or plasma urea nitroge n measurement (mass/volume)Ordered By: Dr. Jaime on 02-25-2023 Urea nitrogen [Mass/Vol] 23 mg/dL 7-18 [facility] Thin prep Papanicolaou smear with manual screeningOrdered By: Dr. Jaime on 02-25-2023 Thin prep Papanicolaou smear with manual screening 20 U/L 15-37 [facility] Thin prep Papanicolaou smear with manual screening 2 5-15 [facility] Glucose Glucometer (BldC) [M ass/Vol]Ordered By: Dr. Jaime on 02-23-2023 Glucose [Mass/Vol] 136 mg/dL 74-106 [facility] Comment on above: MANAGEMENT OF PATIEN T CARE PER NURSING PROTOCOL Blood manual differential co mment interpretation (narrative result)Ordered By: Dr. Jaime on 02-22-2023 Manual differential comment Ajit (Bld) [Interp] SCANNED [facility] Comment on above: LYMPHOPENIA Clostridium difficile detect ion by polymerase chain reactionOrdered By: Dr. Banks on 02-22-2023 C. difficile DNA ISA+probe Ql (Unsp spec) [facility] Base excessOrdered By: Dr. Joshua greenfield on 02-21-2023 Base excess Calc (BldV) [Moles/Vol] 12 mmol/L -2-2 [facility] Basophil percentageOrdered B y: Dr. Jaime on 02-21-2023 Basophil percentage 36.1 mmol/L 22-26 [facility] Basophils/100 WBC (Bld) 98 % 95-99 [facility] Blood platelet adequacy dete ction by light microscopyOrdered By: Dr. Padron on 02-21-2023 Platelets LM Ql (Bld) SLT DEC ADEQ [facility] CO2 (BldA) [Partial pressure ]Ordered By: Dr. Jaime on 02-21-2023 CO2 (Bld) [Partial pressure] 52.0 mm[Hg] 35-45 [facility] Culture, urineOrdered By: Dr Che Monique on 02-21-2023 Bacteria identified Cx Nom (U) Culture exhibits no growth. [facility] No Panel InformationOrdered By: Dr. Jaime on 02-21-2023 Bedside Blood Gas PEEP 7 [facility] Bedside Blood Gas Pressure Support 7 [facility] Blood Gas Oxygen Percent 50 [facility] Blood Gas Sample Site R Brach [facility] Blood Gas Specimen Type ART [facility] Blood Gas Total CO2 38 mmol/L [facility] Blood Gas Vent Mode CPAP/PS [facility] Oxygen (BldA) [Partial press ure]Ordered By: Dr. Jaime on 02-21-2023 Oxygen (Bld) [Partial pressure] 99 mmHG 75-100 [facility] Review by pathologistOrdered By: Dr. Padron on 02-21-2023 Pathologist review Ajit (Unsp spec) [Interp] Reviewed [facility] Comment on above: Previous reported re sult: Uyen menchaca Edited by: [email or web address] on 02/23/23:1043Pancytopenia.Leukopenia Normocytic anemia.Mild ThrombocytopeniaClinical correlation necessary.Blas Carrillo M.D. 02/23/23 AMENDED REPORT 02/23/23 1043 PATH REV previously reported as: Uyen menchaca Vancomycin troughOrdered By: Dr. Padron on 02-21-2023 Vancomycin trough [Mass/Vol] 25.5 ug/mL 5.0-15.0 [facility] Comment on above: VANCOMYCIN STANDARED DRUG THERAPY TROUGH LEVEL: 5.0 - 15.0 mg/L VANCOMYCIN HIGH INTENSITY THERAPY TROUGH LEVEL: 15.0 - 20.0 mg/L High Intensity therapy recommended for serious lifethreatening infections include:- Kmtqnuiplo-Quysbtqrgjlt-Dwltqphvt (Ventilator/Healtcare Associated)-Sepsis PLEASE CONTACT PHARMACY SERVICES (#7601) FOR INTERPRETATIONOF RESULTS. pH measurementOrdered By: Dr Che Jaime on 02-21-2023 pH (Unsp spec) 7.45 [pH] 7.35-7.45 [facility] Assessment of wrist artery p atency prior to arterial punctureOrdered By: Dr. Padron on 02-20-2023 Arterial patency Wrist artery --pre arterial puncture Positive [facility] Basophil percentageOrdered B y: Dr. Monique on 02-20-2023 Triglyceride [Mass/Vol] 141 mg/dL <199 [facility] Comment on above: The drugs N-Acetylcy steine and Metamizole may falsely depress this assay.Serum Triglycerides Reference Interval Normal <150 mg/dL Borderline high 150 - 199 mg/dL High 200 - 499 mg/dL Very High > or = 500 mg/dL Laboratory - Chemistry and C hemistry - challengeOrdered By: Dr. Monique on 02-20-2023 CK [Catalytic activity/Vol] 26 U/L 26-192 [facility] No Panel InformationOrdered By: Dr. Padron on 02-20-2023 Blood Gas Respiration Rate 15 [facility] Oxygen Delivery Device Adult Vent [facility] Basophil percentageOrdered B y: Dr. Padron on 02-19-2023 Basophil percentage 3.6 mg/dL 2.5-4.9 [facility] Laboratory - Chemistry and C hemistry - challengeOrdered By: Dr. Padron on 02-19-2023 Magnesium [Mass/Vol] 2.0 mg/dL 1.6-2.6 [facility] No Panel InformationOrdered By: Dr. Padron on 02-19-2023 Bld Gas Crit Called To/Read Back By Yes [facility] Blood Gas Notified Whom TIFFJEANETTE [facility] Blood Gas Tidal Volume 325 [facility] Laboratory - Hematology and Cell countsOrdered By: Dr. Resendiz on 02-18-2023 Anisocytosis Ql (Bld) 1+ [facility] No Panel InformationOrdered By: Dr. Padron on 02-18-2023 Blood Gas Notified Time 1716 [facility] No Panel InformationOrdered By: Dr. Monique on 02-18-2023 Miscellaneous Test See comment [facility] Comment on above: TEST RESULT LIMITSRe spiratory [...] Detected Not Detected __ TESTING PERFORMED AT [facility]. ORIGINAL REPORT ON FILE IN LAB CONTAINS ADDITIONAL TEST SITE INFORMATION. No Panel InformationOrdered By: Dr. Resendiz on 02-18-2023 Thyroid Stimulating Hormone (TSH) 0.74 uIU/mL 0.358-3.74 [facility] Methicillin-Resist S.aureus DNA PCR Positive Negative [facility] Serum procalcitonin measurem entOrdered By: Dr. Resendiz on 02-18-2023 Procalcitonin [Mass/Vol] 0.13 ng/mL 0.00-0.09 [facility] Comment on above: A procalcitonin (PCT [...] Auto (Unsp spec) [#/Vol] 0.69 10*3/uL 0.83-4.51 [facility] Assessment of wrist artery p atency prior to arterial punctureOrdered By: Dr. Resendiz on 02-17-2023 Arterial patency Wrist artery --pre arterial puncture Positive [facility] Base excessOrdered By: Dr. Deepika hernandez on 02-17-2023 Base excess Calc (BldV) [Moles/Vol] 26 mmol/L -2-2 [facility] Basophil percentageOrdered B y: Dr. Resendiz on 02-17-2023 Basophil percentage 51.8 mmol/L 22-26 [facility] Basophils/100 WBC (Bld) 88 % 95-99 [facility] Basophil percentageOrdered B y: Dr. Tsai on 02-17-2023 Basophil percentage 0 SEEN /hpf 0-5 [facility] Basophils/100 WBC (Bld) 0.4 % 0-1 [facility] Bilirubin [Mass/Vol] 0.50 mg/dL 0.20-1.00 [facility] Comment on above: For patients on eltr ombopag therapy, use of Dimension Max TBIL is not recommended. Chloride [Moles/Vol] 102 mmol/L 98-107 [facility] Eosinophils/100 WBC (Bld) 0.2 % 0-5 [facility] Glucose [Mass/Vol] 238 mg/dL 74-106 [facility] Comment on above: Glucose result great er than or equal to 200 mg/dLsuggests DIABETES MELLITUS per A.D.A. criteria. Neutrophils (Bld) [#/Vol] 9.1 10*3/uL 2.0-7.7 [facility] Neutrophils/100 WBC (Bld) 87.0 % 47-70 [facility] Potassium [Moles/Vol] 4.1 mmol/L 3.5-5.1 [facility] Protein [Mass/Vol] 7.6 g/dL 6.4-8.2 [facility] Sodium [Moles/Vol] 145 mmol/L 136-145 [facility] WBC (Bld) [#/Vol] 10.5 10*3/uL 4.4-11.0 [facility] Bilirubin Test strip Ql (U)O rdered By: Dr. Tsai on 02-17-2023 Bilirubin Ql (U) Negative Negative [facility] Blood erythrocytes count (nu mber/volume)Ordered By: Dr. Tsai on 02-17-2023 RBC (Bld) [#/Vol] 3.69 10*6/uL 4.2-5.4 [facility] Blood hemoglobin measurement (mass/volume)Ordered By: Dr. Tsai on 02-17-2023 Hemoglobin (Bld) [Mass/Vol] 10.1 g/dL 12.0-15.0 [facility] Blood lymphocytes/100 leukoc ytesOrdered By: Dr. Tsai on 02-17-2023 Lymphocytes/100 WBC (Bld) 6.6 % 19-41 [facility] Blood monocytes/100 leukocyt esOrdered By: Dr. Tsai on 02-17-2023 Monocytes/100 WBC (Bld) 3.6 % 0-10 [facility] Blood platelet mean volumeOr dered By: Dr. Tsai on 02-17-2023 Platelet mean volume (Bld) [Entitic vol] 8.4 fL 6.2-12.0 [facility] CO2 (BldA) [Partial pressure ]Ordered By: Dr. Resendiz on 02-17-2023 CO2 (Bld) [Partial pressure] 96.6 mm[Hg] 35-45 [facility] Determination of erythrocyte mean corpuscular volume (MCV)Ordered By: Dr. Tsai on 02-17-2023 MCV (RBC) [Entitic vol] 101.1 fL 81-99 [facility] Hematocrit Auto (Bld) [Volum e fraction]Ordered By: Dr. Tsai on 02-17-2023 Hematocrit (Bld) [Volume fraction] 37.3 % 37-47 [facility] Hyaline casts LM.LPF (Urine sed) [#/Area]Ordered By: Dr. Tsai on 02-17-2023 Hyaline casts (Urine sed) [#/Area] 0 /[LPF] 0-5 [facility] Ketones Test strip Ql (U)Ord ered By: Dr. Tsai on 02-17-2023 Ketones Ql (U) Negative Negative [facility] Laboratory - Chemistry and C hemistry - challengeOrdered By: Dr. Tsai on 02-17-2023 ALP [Catalytic activity/Vol] 99 U/L 45-117 [facility] ALT [Catalytic activity/Vol] 26 U/L 13-56 [facility] CO2 [Moles/Vol] 45.0 mmol/L 21.0-32.0 [facility] Globulin (S) [Mass/Vol] 4.7 g/dL 2.2-4.2 [facility] Urea nitrogen/Creatinine [Mass ratio] 36.2 mg/mg 10-20 [facility] Laboratory - Chemistry and C hemistry - challengeOrdered By: Dr. Resendiz on 02-17-2023 Natriuretic peptide B (Bld) [Mass/Vol] 132.9 pg/mL 0-100 [facility] Laboratory - Drug toxicology Ordered By: Dr. Tsai on 02-17-2023 Amphetamines Ql (U) Negative <1000 ng/mL [facility] Benzodiazepines Ql (U) Negative < 200 ng/mL [facility] Cannabinoids Screen Ql (U) Negative < 50 ng/mL [facility] Cocaine Ql (U) Negative < 300 ng/mL [facility] Opiates Ql (U) Negative < 300 ng/mL [facility] Laboratory - Hematology and Cell countsOrdered By: Dr. Tsai on 02-17-2023 Erythrocyte distribution width (RBC) [Entitic vol] 55.7 fL 35.1-43.9 [facility] Erythrocyte distribution width (RBC) [Ratio] 15.0 % 11.6-14.6 [facility] Immature granulocytes/100 WBC (Bld) 2.200 % 0.0-0.9 [facility] Comment on above: IG% - Immature Granu locytes (promyelocytes, myelocytes and metamyelocytes) > 1% indicates that a LEFT SHIFT is Present. MCH (RBC) [Entitic mass] 27.4 pg 27.0-32.0 [facility] Nucleated RBC/100 WBC (Bld) [Ratio] 0.2 % 0-5 [facility] MCHC Auto (RBC) [Mass/Vol]Or dered By: Dr. Tsai on 02-17-2023 MCHC (RBC) [Mass/Vol] 27.1 g/dL 32-36 [facility] Mucus LM Ql (Urine sed)Order ed By: Dr. Tsai on 02-17-2023 Mucus Ql (Urine sed) 0 SEEN /hpf [facility] Nitrite Test strip Ql (U)Ord ered By: Dr. Tsai on 02-17-2023 Nitrite Ql (U) Negative Negative [facility] No Panel InformationOrdered By: Dr. Resendiz on 02-17-2023 Bedside Blood Gas PEEP 5 [facility] Bld Gas Crit Called To/Read Back By Yes [facility] Blood Gas Notified Time 2245 [facility] Blood Gas Notified Whom ED [facility] Blood Gas Oxygen Percent 60 [facility] Blood Gas Respiration Rate 16 [facility] Blood Gas Sample Site L RADIAL [facility] Blood Gas Specimen Type ART [facility] Blood Gas Tidal Volume 450 [facility] Blood Gas Total CO2 > 50 mmol/L [facility] Blood Gas Vent Mode AC/VC [facility] Oxygen Delivery Device Vent [facility] No Panel InformationOrdered By: Dr. Tsai on 02-17-2023 Ethyl Alcohol Level < 3.0 mg/dL [facility] Comment on above: The serum:whole bloo d ethanol ratio is approximately 1.14and varies slightly with hematocrit. Medical Alcohol reference interval and critical value innon-tolerant individuals; 50 - 100 Impairment 100 Intoxication 100 - 250 Severe Poisoning 250 - 400 Deep/possible fatal coma MDMA (Ecstasy) Screen Negative < 500 ng/mL [facility] Urine Barbiturates Screen Negative < 200 ng/mL [facility] Urine Drug Screen Comment [facility] Comment on above: CONFIRMATORY TESTING FOR [...] Methadone Screen Negative < 300 ng/mL [facility] Estimated Creatinine Clearance Calc 45.09 ml/min [facility] Estimated GFR (MDRD) Amer 118 mL/min >60 [facility] Comment on above: GFR Calc Estimated GFR (MDRD) Non-Af Amer 98 mL/min >60 [facility] Comment on above: Non- GFR Calc Troponin I High Sensitivity 13 pg/mL 3.0-54.0 [facility] Comment on above: Please Note: New Rosalie t Units and Gender Specific Reference Ranges. For more information see Policy Stat Procedure Max High Sensitivity Troponin (TNIH) and attachments. Oxygen (BldA) [Partial press ure]Ordered By: Dr. Resendiz on 02-17-2023 Oxygen (Bld) [Partial pressure] 64 mmHG 75-100 [facility] Platelets bldOrdered By: Dr. Tsai on 02-17-2023 Platelets (Bld) [#/Vol] 163 10*3/uL 150-450 [facility] Protein Test strip Ql (U)Ord ered By: Dr. Tsai on 02-17-2023 Protein Ql (U) 100 mg/dl Negative [facility] Serum or plasma albumin celina urement (mass/volume)Ordered By: Dr. Tsai on 02-17-2023 Albumin [Mass/Vol] 2.9 g/dL 3.2-5.0 [facility] Serum or plasma albumin/glob ulin mass ratioOrdered By: Dr. Tsai on 02-17-2023 Albumin/Globulin [Mass ratio] 0.6 {ratio} 0.9-2.4 [facility] Serum or plasma calcium celina urement (mass/volume)Ordered By: Dr. Tsai on 02-17-2023 Calcium [Mass/Vol] 8.9 mg/dL 8.5-10.1 [facility] Serum or plasma creatinine m easurement (mass/volume)Ordered By: Dr. Tsai on 02-17-2023 Creatinine [Mass/Vol] 0.64 mg/dL 0.55-1.02 [facility] Comment on above: The validity of the calculated GFR & GFRAA in patients over 70 years has not been determined. Clinical correlation is essential. Serum or plasma urea nitroge n measurement (mass/volume)Ordered By: Dr. Tsai on 02-17-2023 Urea nitrogen [Mass/Vol] 23 mg/dL 7-18 [facility] Squamous epithelial cells de tection in urine sediment by light microscopyOrdered By: Dr. Tsai on 02-17-2023 Epithelial cells.squamous LM Ql (Urine sed) 0-5 SEEN /hpf 5-10 [facility] Thin prep Papanicolaou smear with manual screeningOrdered By: Dr. Tsai on 02-17-2023 Thin prep Papanicolaou smear with manual screening 21 U/L 15-37 [facility] Thin prep Papanicolaou smear with manual screening -2 5-15 [facility] Urine blood detectionOrdered By: Dr. Tsai on 02-17-2023 RBC Ql (U) 25 /ul Negative [facility] RBC Ql (U) 0-5 SEEN /hpf 0-5 [facility] Urine clarityOrdered By: Dr. Tsai on 02-17-2023 Clarity (U) Sl. Cloudy Clear [facility] Urine coarse granular cast d etectionOrdered By: Dr. Tsai on 02-17-2023 Coarse Granular Casts LM Ql (Urine sed) 0-5 SEEN /lpf 0-5 /lpf [facility] Urine color determinationOrd ered By: Dr. Tsai on 02-17-2023 Color (U) Yellow Yellow [facility] Urine glucose detectionOrder ed By: Dr. Tsai on 02-17-2023 Glucose Ql (U) Normal mg/dl Normal [facility] Urine leukocyte esterase det ection by dipstickOrdered By: Dr. Tsai on 02-17-2023 Leukocyte esterase Test strip Ql (U) Negative Negative [facility] Urine pHOrdered By: Dr. Paul kohli on 02-17-2023 pH (U) 5.0 [pH] 5.0 - 8.0 [facility] Urine phencyclidine (PCP) de tectionOrdered By: Dr. Tsai on 02-17-2023 Phencyclidine Ql (U) Negative < 25 ng/mL [facility] Urine sediment bacteria coun t by microscopy (number/high power field)Ordered By: Dr. Tsai on 02-17-2023 Bacteria LM.HPF (Urine sed) [#/Area] 0 /[HPF] None Seen [facility] Urine specific gravity measu rementOrdered By: Dr. Tsai on 02-17-2023 Specific gravity (U) [Rel density] 1.030 1.002-1.030 [facility] Urobilinogen Auto test strip Ql (U)Ordered By: Dr. Tsai on 02-17-2023 Urobilinogen Ql (U) Normal mg/dl Normal [facility] pH measurementOrdered By: Dr Che Resendiz on 02-17-2023 pH (Unsp spec) 7.34 [pH] 7.35-7.45 [facility] No Panel InformationOrdered By: Jonathan Dillard on 02-07-2023 Miscellaneous Test See comment [facility] Comment on above: TEST RESULTS LIMITSS ARS-CoV-2, [id number]-7, ISA Not Detected Not DetectedThis nucleic acid amplification test was developed and its performance characteristics determined by [employer]. Nucleic acid amplification tests include RT-PCR and [...] result in this assay. TESTING PERFORMED AT [facility]. ORIGINAL REPORT ON FILE IN LAB CONTAINS ADDITIONAL TEST SITE INFORMATION. Absolute lymphocyte countOrd ered By: Dr. Jeffries on 01-11-2023 Lymphocytes Auto (Unsp spec) [#/Vol] 0.59 10*3/uL 0.83-4.51 [facility] Basophil percentageOrdered B y: Dr. Jeffries on 01-11-2023 Basophils/100 WBC (Bld) 0.2 % 0-1 [facility] Bilirubin [Mass/Vol] 0.50 mg/dL 0.20-1.00 [facility] Comment on above: For patients on eltr ombopag therapy, use of Dimension Max TBIL is not recommended. Chloride [Moles/Vol] 99 mmol/L 98-107 [facility] Eosinophils/100 WBC (Bld) 1.1 % 0-5 [facility] Glucose [Mass/Vol] 124 mg/dL 74-106 [facility] Comment on above: Fasting Glucose resu lt from 100 to 125 mg/dL suggests IMPAIRED HOMEOSTASIS per A.D.A. criteria. LDH [Catalytic activity/Vol] 147 U/L 84-246 [facility] Neutrophils (Bld) [#/Vol] 4.4 10*3/uL 2.0-7.7 [facility] Neutrophils/100 WBC (Bld) 81.5 % 47-70 [facility] Potassium [Moles/Vol] 4.2 mmol/L 3.5-5.1 [facility] Protein [Mass/Vol] 7.1 g/dL 6.4-8.2 [facility] Sodium [Moles/Vol] 146 mmol/L 136-145 [facility] WBC (Bld) [#/Vol] 5.4 10*3/uL 4.4-11.0 [facility] Blood erythrocytes count (nu mber/volume)Ordered By: Dr. Jeffries on 01-11-2023 RBC (Bld) [#/Vol] 3.43 10*6/uL 4.2-5.4 [facility] Blood hemoglobin measurement (mass/volume)Ordered By: Dr. Jeffries on 01-11-2023 Hemoglobin (Bld) [Mass/Vol] 9.7 g/dL 12.0-15.0 [facility] Blood lymphocytes/100 leukoc ytesOrdered By: Dr. Jeffries on 01-11-2023 Lymphocytes/100 WBC (Bld) 11.0 % 19-41 [facility] Blood manual differential co mment interpretation (narrative result)Ordered By: Dr. Jeffries on 01-11-2023 Manual differential comment Ajit (Bld) [Interp] SCANNED [facility] Blood monocytes/100 leukocyt esOrdered By: Dr. Jeffries on 01-11-2023 Monocytes/100 WBC (Bld) 5.6 % 0-10 [facility] Blood platelet mean volumeOr dered By: Dr. Jeffries on 01-11-2023 Platelet mean volume (Bld) [Entitic vol] 8.4 fL 6.2-12.0 [facility] Determination of erythrocyte mean corpuscular volume (MCV)Ordered By: Dr. Jeffries on 01-11-2023 MCV (RBC) [Entitic vol] 97.4 fL 81-99 [facility] Hematocrit Auto (Bld) [Volum e fraction]Ordered By: Dr. Jeffries on 01-11-2023 Hematocrit (Bld) [Volume fraction] 33.4 % 37-47 [facility] Hemoglobin in reticulocytes (mass per reticulocyte)Ordered By: Dr. Jeffries on 01-11-2023 Hemoglobin (Reticulocytes) [Entitic mass] 24.6 pg 30-35 [facility] Hypochromatic red blood cell detectionOrdered By: Dr. Jeffries on 01-11-2023 Hypochromia Ql (Bld) 2+ [facility] Iron measurement (mass/mass) Ordered By: Dr. Jeffries on 01-11-2023 Iron (Unsp spec) [Mass/Mass] 35 ug/dL 50-170 [facility] Laboratory - Chemistry and C hemistry - challengeOrdered By: Dr. Jeffries on 01-11-2023 ALP [Catalytic activity/Vol] 81 U/L 45-117 [facility] ALT [Catalytic activity/Vol] 15 U/L 13-56 [facility] CO2 [Moles/Vol] 43.0 mmol/L 21.0-32.0 [facility] Cobalamin (Vitamin B12) [Mass/Vol] 561 pg/mL 211-911 [facility] Globulin (S) [Mass/Vol] 3.9 g/dL 2.2-4.2 [facility] Urea nitrogen/Creatinine [Mass ratio] 22.3 mg/mg 10-20 [facility] Laboratory - Hematology and Cell countsOrdered By: Dr. Jeffries on 01-11-2023 Erythrocyte distribution width (RBC) [Entitic vol] 51.6 fL 35.1-43.9 [facility] Erythrocyte distribution width (RBC) [Ratio] 14.5 % 11.6-14.6 [facility] Immature granulocytes/100 WBC (Bld) 0.600 % 0.0-0.9 [facility] Comment on above: IG% - Immature Granu locytes (promyelocytes, myelocytes and metamyelocytes) > 1% indicates that a LEFT SHIFT is Present. MCH (RBC) [Entitic mass] 28.3 pg 27.0-32.0 [facility] Nucleated RBC/100 WBC (Bld) [Ratio] 0 % 0-5 [facility] MCHC Auto (RBC) [Mass/Vol]Or dered By: Dr. Jeffries on 01-11-2023 MCHC (RBC) [Mass/Vol] 29.0 g/dL 32-36 [facility] No Panel InformationOrdered By: Dr. Jeffries on 01-11-2023 Estimated GFR (MDRD) Amer 102 mL/min >60 [facility] Comment on above: GFR Calc Estimated GFR (MDRD) Non-Af Amer 85 mL/min >60 [facility] Comment on above: Non- GFR Calc Immature Platelet Fraction 1.3 % 1.0-7.9 [facility] Comment on above: Low PLT + Low IPF faust ggest a bone marrow production disorderLow PLT + high IPF suggests peripheral destruction(e.g.ITP, TTP, HIT, DIC, autoimmune) or bone marrow recoveryTrending of serial IPF measurements is recommended when evaluating for bone marrow responesValue above normal range indicates an increase in RBC cellular response from bone marrow. Immature Reticulocyte Fraction 23.00 % 3.00-15.90 [facility] Reticulocyte Count 2.53 % 0.5-1.5 [facility] Total Iron Binding Capacity 186 ug/dL 250-450 [facility] Platelets bldOrdered By: Dr. Jeffries on 01-11-2023 Platelets (Bld) [#/Vol] 138 10*3/uL 150-450 [facility] Serum or plasma albumin celina urement (mass/volume)Ordered By: Dr. Jeffries on 01-11-2023 Albumin [Mass/Vol] 3.2 g/dL 3.2-5.0 [facility] Serum or plasma albumin/glob ulin mass ratioOrdered By: Dr. Jeffries on 01-11-2023 Albumin/Globulin [Mass ratio] 0.8 {ratio} 0.9-2.4 [facility] Serum or plasma calcium celina urement (mass/volume)Ordered By: Dr. Jeffries on 01-11-2023 Calcium [Mass/Vol] 9.1 mg/dL 8.5-10.1 [facility] Serum or plasma creatinine m easurement (mass/volume)Ordered By: Dr. Jeffries on 01-11-2023 Creatinine [Mass/Vol] 0.72 mg/dL 0.55-1.02 [facility] Comment on above: The validity of the calculated GFR & GFRAA in patients over 70 years has not been determined. Clinical correlation is essential. Serum or plasma ferritin carter surement (mass/volume)Ordered By: Dr. Jeffries on 01-11-2023 Ferritin [Mass/Vol] 55 ng/mL 8-252 [facility] Serum or plasma folate measu rement (mass/volume)Ordered By: Dr. Jeffries on 01-11-2023 Folate [Mass/Vol] 73.30 ng/mL 3.1-55.4 [facility] Serum or plasma iron saturat ion measurement (mass fraction)Ordered By: Dr. Jeffries on 01-11-2023 Iron saturation [Mass fraction] 18.8 % 15.0-55.0 [facility] Serum or plasma urea nitroge n measurement (mass/volume)Ordered By: Dr. Jeffries on 01-11-2023 Urea nitrogen [Mass/Vol] 16 mg/dL 7-18 [facility] Thin prep Papanicolaou smear with manual screeningOrdered By: Dr. Jeffries on 01-11-2023 Thin prep Papanicolaou smear with manual screening 14 U/L 15-37 [facility] Thin prep Papanicolaou smear with manual screening 4 5-15 [facility] Progress Noteon 11-02-2022 Progress Note Obese [...] pancytopenia. Of note she states she saw clinical writer 6 years ago and underwent a bone [...] Stable, follow-up with surgery as discussed Normal [facility] Basophil percentageOrdered B y: Stef Villegas on 11-01-2022 WBC (Bld) [#/Vol] 4.9 10*3/uL 4.4-11.0 [facility] Blood erythrocytes count (nu mber/volume)Ordered By: Stef Villegas on 11-01-2022 RBC (Bld) [#/Vol] 3.26 10*6/uL 4.2-5.4 [facility] Blood hemoglobin measurement (mass/volume)Ordered By: Stef Villegas on 11-01-2022 Hemoglobin (Bld) [Mass/Vol] 8.9 g/dL 12.0-15.0 [facility] Blood platelet mean volumeOr dered By: Stef Villegas on 11-01-2022 Platelet mean volume (Bld) [Entitic vol] 10.0 fL 6.2-12.0 [facility] Determination of erythrocyte mean corpuscular volume (MCV)Ordered By: Stef Villegas on 11-01-2022 MCV (RBC) [Entitic vol] 96.0 fL 81-99 [facility] Hematocrit Auto (Bld) [Volum e fraction]Ordered By: Stef Villegas on 11-01-2022 Hematocrit (Bld) [Volume fraction] 31.3 % 37-47 [facility] Iron measurement (mass/mass) Ordered By: Stef Villegas on 11-01-2022 Iron (Unsp spec) [Mass/Mass] 29 ug/dL 50-170 [facility] Laboratory - Chemistry and C hemistry - challengeOrdered By: Stef Villegas on 11-01-2022 Cobalamin (Vitamin B12) [Mass/Vol] 208 pg/mL 211-911 [facility] - Hematology and Cell countsOrdered By: Stef Villegas on 11-01-2022 Erythrocyte distribution width (RBC) [Entitic vol] 49.5 fL 35.1-43.9 [facility] Erythrocyte distribution width (RBC) [Ratio] 14.2 % 11.6-14.6 [facility] MCH (RBC) [Entitic mass] 27.3 pg 27.0-32.0 [facility] MCHC Auto (RBC) [Mass/Vol]Or dered By: Stef Villegas on 11-01-2022 MCHC (RBC) [Mass/Vol] 28.4 g/dL 32-36 [facility] No Panel InformationOrdered By: Stef Villegas on 11-01-2022 Total Iron Binding Capacity 212 ug/dL 250-450 [facility] Platelets bldOrdered By: Elida alexander Bakari on 11-01-2022 Platelets (Bld) [#/Vol] 94 10*3/uL 150-450 [facility] Comment on above: PREVIOUS RESULTS <10 0. Serum or plasma ferritin carter surement (mass/volume)Ordered By: Stef Villegas on 11-01-2022 Ferritin [Mass/Vol] 45 ng/mL 8-252 [facility] Serum or plasma folate measu rement (mass/volume)Ordered By: Stef Villegas on 11-01-2022 Folate [Mass/Vol] 6.00 ng/mL 3.1-55.4 [facility] Serum or plasma iron saturat ion measurement (mass fraction)Ordered By: Stef Villegas on 11-01-2022 Iron saturation [Mass fraction] 13.7 % 15.0-55.[address] [facility] [address] SPINE CERVICAL W/O CONTRA STon [...] 10/30/2022 12:08:00 PM Ordering Provider: [facility] ([place] Progress Noteon 10-20-2022 Progress Note Well-controlled hypertensive [...] complication, without long-term current use of insulin ([facility]/HCC) (HCC) Stable, continue Amaryl 3. Chronic anemia Pancytopenia appears chronic. Follow-up with PCP to discuss possible panendoscopy or and/or hematology consultation 4. History of breast cancer Stable, follow-up with PCP for appropriate screening 5. Closed fracture of cervical vertebra, unspecified cervical vertebral level, subsequent encounter Healing, follow-up with orthopedist. Continue gabapentin and oxycodone and PT. 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 [facility] XR SPINE CERVICAL AP/LAT/FLE X/EXTon 10-06-2022 [...] Sign Date: 10/06/2022 11:46:14 AM Ordering Provider: [facility] ([place] XR SPINE THORACIC 2 VIEWSon 10-06-2022 XR [...] Date: 10/06/2022 11:47:34 AM Ordering Provider: RENETTA [facility] ([place]) Basophil percentageon 2021 Basophil percentage 0 SEEN /hpf 0-5 [facility] Work Phone: Bilirubin Test strip Ql (U)o n 10-05-2022 Bilirubin Ql (U) Negative Negative [facility] Work Phone: Ketones Test strip Ql (U)on 10-05-2022 Ketones Ql (U) Negative Negative [facility] Work Phone: Mucus LM Ql (Urine sed)on Mucus Ql (Urine sed) 0 SEEN /hpf [facility] Work Phone: Nitrite Test strip Ql (U)on 10-05-2022 Nitrite Ql (U) Negative Negative [facility] Work Phone: Protein Test strip Ql (U)on 10-05-2022 Protein Ql (U) Negative Negative [facility] Work Phone: Squamous epithelial cells de tection in urine sediment by light microscopyon 10-05-2022 Epithelial cells.squamous LM Ql (Urine sed) 0 SEEN /hpf 5-10 [facility] Work Phone: Urine blood detectionon 09-15 RBC Ql (U) Negative Negative [facility] Work Phone: [phone] RBC Ql (U) 0 SEEN /hpf 0-5 [facility] Work Phone: Urine clarityon 10-05-2022 Clarity (U) Clear Clear [facility] Work Phone: Urine color determinationon 10-05-2022 Color (U) Yellow Yellow [facility] Work Phone: Urine glucose detectionon Glucose Ql (U) Normal mg/dl Normal [facility] Work Phone: [phone] Urine leukocyte esterase det ection by dipstickon 10-05-2022 Leukocyte esterase Test strip Ql (U) Negative Negative [facility] Work Phone: Urine pHon 10-05-2022 pH (U) 7.0 [pH] 5.0 - 8.0 [facility] Work Phone: Urine sediment bacteria coun t by microscopy (number/high power field)on 10-05-2022 Bacteria LM.HPF (Urine sed) [#/Area] 0 /[HPF] None Seen [facility] Work Phone: Urine specific gravity measu rementon 10-05-2022 Specific gravity (U) [Rel density] 1.010 1.002-1.030 [facility] Work Phone: Urobilinogen Auto test strip Ql (U)on 10-05-2022 Urobilinogen Ql (U) Normal mg/dl Normal [facility] Work Phone: Absolute lymphocyte counton 09-29-2022 Lymphocytes Auto (Unsp spec) [#/Vol] 0.69 10*3/uL 0.83-4.51 [facility] Work Phone: Basophil percentageon 2021 Basophils/100 WBC (Bld) 0.3 % 0-1 [facility] Work Phone: [phone] Eosinophils/100 WBC (Bld) 2.1 % 0-5 [facility] Work Phone: [phone] Neutrophils (Bld) [#/Vol] 2.3 10*3/uL 2.0-7.7 [facility] Work Phone: [phone] Neutrophils/100 WBC (Bld) 69.9 % 47-70 [facility] Work Phone: [phone] WBC (Bld) [#/Vol] 3.3 10*3/uL 4.4-11.0 [facility] Work Phone: Blood erythrocytes count (nu mber/volume)on 09-29-2022 RBC (Bld) [#/Vol] 3.17 10*6/uL 4.2-5.4 [facility] Work Phone: Blood hemoglobin measurement (mass/volume)on 09-29-2022 Hemoglobin (Bld) [Mass/Vol] 8.8 g/dL 12.0-15.0 [facility] Work Phone: Blood lymphocytes/100 leukoc yteson 09-29-2022 Lymphocytes/100 WBC (Bld) 21.0 % 19-41 [facility] Work Phone: Blood monocytes/100 leukocyt eson 09-29-2022 Monocytes/100 WBC (Bld) 6.1 % 0-10 [facility] Work Phone: Blood platelet mean volumeon 09-29-2022 Platelet mean volume (Bld) [Entitic vol] 10.0 fL 6.2-12.0 [facility] Work Phone: Determination of erythrocyte mean corpuscular volume (MCV)on 09-29-2022 MCV (RBC) [Entitic vol] 97.2 fL 81-99 [facility] Work Phone: Hematocrit Auto (Bld) [Volum e fraction]on 09-29-2022 Hematocrit (Bld) [Volume fraction] 30.8 % 37-47 [facility] Work Phone: Laboratory - Hematology and Cell countson 09-29-2022 Erythrocyte distribution width (RBC) [Entitic vol] 49.7 fL 35.1-43.9 [facility] Work Phone: Erythrocyte distribution width (RBC) [Ratio] 14.0 % 11.6-14.6 [facility] Work Phone: Immature granulocytes/100 WBC (Bld) 0.600 % 0.0-0.9 [facility] Work Phone: Comment on above: IG% - Immature Granu locytes (promyelocytes, myelocytes and metamyelocytes) > 1% indicates that a LEFT SHIFT is Present. MCH (RBC) [Entitic mass] 27.8 pg 27.0-32.0 [facility] Work Phone: Nucleated RBC/100 WBC (Bld) [Ratio] 0.9 % 0-5 [facility] Work Phone: MCHC Auto (RBC) [Mass/Vol]on 09-29-2022 MCHC (RBC) [Mass/Vol] 28.6 g/dL 32-36 [facility] Work Phone: Platelets bldon 09-29-2022 Platelets (Bld) [#/Vol] 83 10*3/uL 150-450 [facility] Work Phone: Basophil percentageon 2021 Basophil percentage 5-10 SEEN /hpf 0-5 [facility] Work Phone: Bilirubin Test strip Ql (U)o n 09-08-2022 Bilirubin Ql (U) Negative Negative [facility] Work Phone: Ketones Test strip Ql (U)on 09-08-2022 Ketones Ql (U) Negative Negative [facility] Work Phone: Mucus LM Ql (Urine sed)on Mucus Ql (Urine sed) 1+ /hpf [facility] Work Phone: Nitrite Test strip Ql (U)on 09-08-2022 Nitrite Ql (U) Positive Negative [facility] Work Phone: Protein Test strip Ql (U)on 09-08-2022 Protein Ql (U) Negative Negative [facility] Work Phone: Squamous epithelial cells de tection in urine sediment by light microscopyon 09-08-2022 Epithelial cells.squamous LM Ql (Urine sed) 0-5 SEEN /hpf 5-10 [facility] Work Phone: Urine blood detectionon 08-15 RBC Ql (U) 10 /ul Negative [facility] Work Phone: [phone] RBC Ql (U) 0-5 SEEN /hpf 0-5 [facility] Work Phone: Urine clarityon 09-08-2022 Clarity (U) Sl. Cloudy Clear [facility] Work Phone: Urine color determinationon 09-08-2022 Color (U) Yellow Yellow [facility] Work Phone: Urine glucose detectionon Glucose Ql (U) Normal mg/dl Normal [facility] Work Phone: Urine leukocyte esterase det ection by dipstickon 09-08-2022 Leukocyte esterase Test strip Ql (U) 500 /ul Negative [facility] Work Phone: Urine pHon 09-08-2022 pH (U) 6.5 [pH] 5.0 - 8.0 [facility] Work Phone: Urine sediment bacteria coun t by microscopy (number/high power field)on 09-08-2022 Bacteria LM.HPF (Urine sed) [#/Area] 2 /[HPF] None Seen [facility] Work Phone: Urine specific gravity measu rementon 09-08-2022 Specific gravity (U) [Rel density] 1.010 1.002-1.030 [facility] Work Phone: Urobilinogen Auto test strip Ql (U)on 09-08-2022 Urobilinogen Ql (U) Normal mg/dl Normal [facility] Work Phone: Absolute lymphocyte counton 09-01-2022 Lymphocytes Auto (Unsp spec) [#/Vol] 0.68 10*3/uL 0.83-4.51 [facility] Work Phone: Basophil percentageon 2021 Basophils/100 WBC (Bld) 0.3 % 0-1 [facility] Work Phone: Bilirubin [Mass/Vol] 0.50 mg/dL 0.20-1.00 [facility] Work Phone: Comment on above: For patients on eltr ombopag therapy, use of Dimension Max TBIL is not recommended. Chloride [Moles/Vol] 106 mmol/L 98-107 [facility]: Eosinophils/100 WBC (Bld) 1.5 % 0-5 [facility] Work Phone: Glucose [Mass/Vol] 86 mg/dL 74-106 [facility] Work Phone: Neutrophils (Bld) [#/Vol] 2.4 10*3/uL 2.0-7.7 [facility] Work Phone: Neutrophils/100 WBC (Bld) 71.9 % 47-70 [facility] Work Phone: Potassium [Moles/Vol] 3.9 mmol/L 3.5-5.1 [facility] Work Phone: Protein [Mass/Vol] 6.4 g/dL 6.4-8.2 [facility] Work Phone: Sodium [Moles/Vol] 147 mmol/L 136-145 [facility] Work Phone: WBC (Bld) [#/Vol] 3.4 10*3/uL 4.4-11.0 [facility] Work Phone: Blood erythrocytes count (nu mber/volume)on 09-01-2022 RBC (Bld) [#/Vol] 2.97 10*6/uL 4.2-5.4 [facility]: Blood hemoglobin measurement (mass/volume)on 09-01-2022 Hemoglobin (Bld) [Mass/Vol] 8.6 g/dL 12.0-15.0 [facility] Work Phone: Blood lymphocytes/100 leukoc yteson 09-01-2022 Lymphocytes/100 WBC (Bld) 20.3 % 19-41 [facility] Work Phone: Blood monocytes/100 leukocyt eson 09-01-2022 Monocytes/100 WBC (Bld) 5.7 % 0-10 [facility] Work Phone: Blood platelet adequacy dete ction by light microscopyon 09-01-2022 Platelets LM Ql (Bld) MOD DEC [facility] Work Phone: Blood platelet mean volumeon 09-01-2022 Platelet mean volume (Bld) [Entitic vol] 9.3 fL 6.2-12.0 [facility] Work Phone: Determination of erythrocyte mean corpuscular volume (MCV)on 09-01-2022 MCV (RBC) [Entitic vol] 97.6 fL 81-99 [facility] Work Phone: Hematocrit Auto (Bld) [Volum e fraction]on 09-01-2022 Hematocrit (Bld) [Volume fraction] 29.0 % 37-47 [facility] Work Phone: Laboratory - Chemistry and C hemistry - challengeon 09-01-2022 ALP [Catalytic activity/Vol] 65 U/L 45-117 [facility] Work Phone: ALT [Catalytic activity/Vol] 19 U/L 13-56 [facility] Work Phone: CO2 [Moles/Vol] 40.0 mmol/L 21.0-32.0 [facility] Work Phone: Globulin (S) [Mass/Vol] 3.4 g/dL 2.2-4.2 [facility] Work Phone: Urea nitrogen/Creatinine [Mass ratio] 21.1 mg/mg 10-20 [facility] Work Phone: Laboratory - Hematology and Cell countson 09-01-2022 Erythrocyte distribution width (RBC) [Entitic vol] 49.0 fL 35.1-43.9 [facility] Work Phone: Erythrocyte distribution width (RBC) [Ratio] 13.7 % 11.6-14.6 [facility] Work Phone: Immature granulocytes/100 WBC (Bld) 0.300 % 0.0-0.9 [facility] Work Phone: [phone] Comment on above: IG% - Immature Granu locytes (promyelocytes, myelocytes and metamyelocytes) > 1% indicates that a LEFT SHIFT is Present. MCH (RBC) [Entitic mass] 29.0 pg 27.0-32.0 [facility] Work Phone: Nucleated RBC/100 WBC (Bld) [Ratio] 0 % 0-5 [facility] Work Phone: MCHC Auto (RBC) [Mass/Vol]on 09-01-2022 MCHC (RBC) [Mass/Vol] 29.7 g/dL 32-36 [facility] Work Phone: No Panel Informationon 09-01 Estimated GFR (MDRD) Amer 112 mL/min >60 [facility] Work Phone: Comment on above: GFR Calc Estimated GFR (MDRD) Non-Af Amer 93 mL/min >60 [facility] Work Phone: Comment on above: Non- GFR Calc Thyroid Stimulating Hormone (TSH) 2.06 uIU/mL 0.358-3.74 [facility] [facility] Work Phone: Platelets bldon 09-01-2022 Platelets (Bld) [#/Vol] 99 10*3/uL 150-450 [facility] Work Phone: RBC morphologyon 09-01-2022 RBC morphology finding Nom (Bld) NORM C+C NORMAL NORM C&C [facility] Work Phone: Serum or plasma albumin celina urement (mass/volume)on 09-01-2022 Albumin [Mass/Vol] 3.0 g/dL 3.2-5.0 [facility] Work Phone: Serum or plasma albumin/glob ulin mass ratioon 09-01-2022 Albumin/Globulin [Mass ratio] 0.9 {ratio} 0.9-2.4 [facility] Work Phone: Serum or plasma calcium celina urement (mass/volume)on 09-01-2022 Calcium [Mass/Vol] 8.8 mg/dL 8.5-10.1 [facility] Work Phone: Serum or plasma creatinine m easurement (mass/volume)on 09-01-2022 Creatinine [Mass/Vol] 0.66 mg/dL 0.55-1.02 [facility] Work Phone: [phone] Comment on above: The validity of the calculated GFR & GFRAA in patients over 70 years has not been determined. Clinical correlation is essential. Serum or plasma urea nitroge n measurement (mass/volume)on 09-01-2022 Urea nitrogen [Mass/Vol] 14 mg/dL 7-18 [facility] Work Phone: Thin prep Papanicolaou smear with manual screeningon 09-01-2022 Thin prep Papanicolaou smear with manual screening 21 U/L 15-37 [facility] Work Phone: Thin prep Papanicolaou smear with manual screening 1 5-15 [facility] Work Phone: Absolute lymphocyte counton 08-26-2022 Lymphocytes Auto (Unsp spec) [#/Vol] 0.68 10*3/uL 0.83-4.51 [facility] Work Phone: Basophil percentageon 2021 Basophils/100 WBC (Bld) 0.2 % 0-1 [facility] Work Phone: [phone] Eosinophils/100 WBC (Bld) 1.2 % 0-5 [facility] Work Phone: Neutrophils (Bld) [#/Vol] 3.0 10*3/uL 2.0-7.7 [facility] Work Phone: Neutrophils/100 WBC (Bld) 74.7 % 47-70 [facility] Work Phone: WBC (Bld) [#/Vol] 4.0 10*3/uL 4.4-11.0 [facility] Work Phone: Blood erythrocytes count (nu mber/volume)on 08-26-2022 RBC (Bld) [#/Vol] 2.88 10*6/uL 4.2-5.4 [facility] Work Phone: Blood hemoglobin measurement (mass/volume)on 08-26-2022 Hemoglobin (Bld) [Mass/Vol] 8.5 g/dL 12.0-15.0 [facility] Work Phone: Blood lymphocytes/100 leukoc yteson 08-26-2022 Lymphocytes/100 WBC (Bld) 17.0 % 19-41 [facility] Work Phone: Blood monocytes/100 leukocyt eson 08-26-2022 Monocytes/100 WBC (Bld) 6.7 % 0-10 [facility] Work Phone: Blood platelet mean volumeon 08-26-2022 Platelet mean volume (Bld) [Entitic vol] 9.3 fL 6.2-12.0 [facility] Work Phone: Determination of erythrocyte mean corpuscular volume (MCV)on 08-26-2022 MCV (RBC) [Entitic vol] 101.0 fL 81-99 [facility] Work Phone: Hematocrit Auto (Bld) [Volum e fraction]on 08-26-2022 Hematocrit (Bld) [Volume fraction] 29.1 % 37-47 [facility] Work Phone: Laboratory - Hematology and Cell countson 08-26-2022 Erythrocyte distribution width (RBC) [Entitic vol] 50.9 fL 35.1-43.9 [facility] Work Phone: Erythrocyte distribution width (RBC) [Ratio] 13.8 % 11.6-14.6 [facility] Work Phone: Immature granulocytes/100 WBC (Bld) 0.200 % 0.0-0.9 [facility] Work Phone: Comment on above: IG% - Immature Granu locytes (promyelocytes, myelocytes and metamyelocytes) > 1% indicates that a LEFT SHIFT is Present. MCH (RBC) [Entitic mass] 29.5 pg 27.0-32.0 [facility] Work Phone: Nucleated RBC/100 WBC (Bld) [Ratio] 0 % 0-5 [facility] Work Phone: MCHC Auto (RBC) [Mass/Vol]on 08-26-2022 MCHC (RBC) [Mass/Vol] 29.2 g/dL 32-36 [facility] Work Phone: Platelets bldon 08-26-2022 Platelets (Bld) [#/Vol] 105 10*3/uL 150-450 [facility] Work Phone: Basophil percentageon 2021 Chloride [Moles/Vol] 99 mmol/L 98-107 [facility] Work Phone: Cholesterol [Mass/Vol] 149 mg/dL <200 [facility] Work Phone: Comment on above: <200 mg/dL Desirable 200-240 mg/dL Borderline >240 mg/dL High Risk Glucose [Mass/Vol] 148 mg/dL 74-106 [facility] Work Phone: Comment on above: Fasting Glucose resu lt greater than or equal to 126 mg/dL suggests DIABETES MELLITUS per A.D.A. criteria. Potassium [Moles/Vol] 4.2 mmol/L 3.5-5.1 [facility] Work Phone: Sodium [Moles/Vol] 141 mmol/L 136-145 [facility] Work Phone: Triglyceride [Mass/Vol] 188 mg/dL <199 [facility] Work Phone: Comment on above: The drugs N-Acetylcy steine and Metamizole may falsely depress this assay.Serum Triglycerides Reference Interval Normal <150 mg/dL Borderline high 150 - 199 mg/dL High 200 - 499 mg/dL Very High > or = 500 mg/dL WBC (Bld) [#/Vol] 4.8 10*3/uL 4.4-11.0 [facility] Work Phone: Blood erythrocytes count (nu mber/volume)on 08-02-2022 RBC (Bld) [#/Vol] 2.91 10*6/uL 4.2-5.4 [facility]: Blood hemoglobin measurement (mass/volume)on 08-02-2022 Hemoglobin (Bld) [Mass/Vol] 8.6 g/dL 12.0-15.0 [facility] Work Phone: Blood platelet mean volumeon 08-02-2022 Platelet mean volume (Bld) [Entitic vol] 9.1 fL 6.2-12.0 [facility] Work Phone: Determination of erythrocyte mean corpuscular volume (MCV)on 08-02-2022 MCV (RBC) [Entitic vol] 102.4 fL 81-99 [facility] Work Phone: Hematocrit Auto (Bld) [Volum e fraction]on 08-02-2022 Hematocrit (Bld) [Volume fraction] 29.8 % 37-47 [facility] Work Phone: Iron measurement (mass/mass) on 08-02-2022 Iron (Unsp spec) [Mass/Mass] 43 ug/dL 50-170 [facility] Work Phone: Laboratory - Chemistry and C hemistry - challengeon 08-02-2022 Albumin [Mass/Vol] 3.3 g/dL 2.9-4.4 [facility] Work Phone: CO2 [Moles/Vol] 39.0 mmol/L 21.0-32.0 [facility] Work Phone: Cobalamin (Vitamin B12) [Mass/Vol] 350 pg/mL 211-911 [facility] Work Phone: Urea nitrogen/Creatinine [Mass ratio] 26.8 mg/mg 10-20 [facility] Work Phone: Laboratory - Hematology and Cell countson 08-02-2022 Erythrocyte distribution width (RBC) [Entitic vol] 52.6 fL 35.1-43.9 [facility] Work Phone: Erythrocyte distribution width (RBC) [Ratio] 14.2 % 11.6-14.6 [facility] Work Phone: MCH (RBC) [Entitic mass] 29.6 pg 27.0-32.0 [facility] Work Phone: MCHC Auto (RBC) [Mass/Vol]on 08-02-2022 MCHC (RBC) [Mass/Vol] 28.9 g/dL 32-36 [facility] Work Phone: No Panel Informationon 08-02 Addendum Document Comment . [facility] Work Phone: Comment on above: The SPE pattern appe ars unremarkable. Evidence ofmonoclonal protein is not apparent.Performed at: [facility] [id number] Director: aMrk Woo PhD, Phone: [phone] Effjg-5-Oxwefjajd 0.3 g/dL 0.0-0.4 [facility] Work Phone: Wyhnx-0-Mgqlauusv 0.9 g/dL 0.4-1.0 [facility] Work Phone: Estimated GFR (MDRD) Amer 104 mL/min >60 [facility] Work Phone: Comment on above: GFR Calc Estimated GFR (MDRD) Non-Af Amer 86 mL/min >60 [facility] Work Phone: Comment on above: Non- GFR Calc Gamma Globulins 0.9 g/dL 0.4-1.8 [facility] Work Phone: Thyroid Stimulating Hormone (TSH) 1.91 uIU/mL 0.358-3.74 [facility] Work Phone: Total Iron Binding Capacity 268 ug/dL 250-450 [facility] Work Phone: Platelets bldon 08-02-2022 Platelets (Bld) [#/Vol] 120 10*3/uL 150-450 [facility] Work Phone: Protein Fractions Elph [Inte rp]on 08-02-2022 Protein Fractions [Interp] Comment . [facility] Work Phone: Comment on above: Protein electrophore sis scan will follow via computer,mail, or retail custodial associate delivery. Serum albumin to globulin ra amairani by protein electrophoresison 08-02-2022 Albumin/Globulin Elph [Mass ratio] 1.0 0.7-1.7 [facility] Work Phone: Serum globulin measurement ( mass/volume)on 08-02-2022 Globulin (S) [Mass/Vol] 3.2 g/dL 2.2-3.9 [facility] Work Phone: Serum or plasma beta globuli n measurement by electrophoresis (mass/volume)on 08-02-2022 Beta globulin Elph [Mass/Vol] 1.0 g/dL 0.7-1.3 [facility] Work Phone: Serum or plasma calcium celina urement (mass/volume)on 08-02-2022 Calcium [Mass/Vol] 9.0 mg/dL 8.5-10.1 [facility] Work Phone: Serum or plasma cholesterol in HDL measurement (mass/volume)on 08-02-2022 Cholesterol in HDL [Mass/Vol] 53 mg/dL >40 [facility] Work Phone: Comment on above: The drugs N-Acetylcy steine and Metamizole may falsely depress this assay. Reference Range HDL <40 mg/dL Low HDL Cholesterol HDL >or= 60 mg/dL High HDL Cholesterol Serum or plasma cholesterol in VLDL measurement (mass/volume)on 08-02-2022 Cholesterol in VLDL [Mass/Vol] 38 mg/dL 5-40 [facility] Work Phone: Serum or plasma creatinine m easurement (mass/volume)on 08-02-2022 Creatinine [Mass/Vol] 0.71 mg/dL 0.55-1.02 [facility] Work Phone: Comment on above: The validity of the calculated GFR & GFRAA in patients over 70 years has not been determined. Clinical correlation is essential. Serum or plasma iron saturat ion measurement (mass fraction)on 08-02-2022 Iron saturation [Mass fraction] 16.0 % 15.0-55.0 [facility] Work Phone: Serum or plasma low density lipoprotein (LDL) cholesterol measurement (mass/volume)on 08-02-2022 Cholesterol in LDL [Mass/Vol] 58 mg/dL 0-130 [facility] Work Phone: Serum or plasma urea nitroge n measurement (mass/volume)on 08-02-2022 Urea nitrogen [Mass/Vol] 19 mg/dL 7-18 [facility] Work Phone: Thin prep Papanicolaou smear with manual screeningon 08-02-2022 Thin prep Papanicolaou smear with manual screening 3 5-15 [facility] Work Phone: Thin prep Papanicolaou smear with manual screening See comment [facility] Work Phone: Comment on above: Result: Not Observed Total protein bloodon 2021 Protein [Mass/Vol] 6.5 g/dL 6.0-8.5 [facility] Work Phone: Whole blood hemoglobin A1c/t otal hemoglobin ratio (mass fraction)on 08-02-2022 HbA1c (Bld) [Mass fraction] 5.7 % 3.8-5.6 [facility] Work Phone: Comment on above: Normal < 5.7 % Predi abetic 5.7 - 6.4 % Diabetic >or= 6.5 % Please note range changes. LABORATORYOrdered By: Chelsy Kay on 07-27-2022 Blood Glucose Testing Reason Routine (07/27/22 9:16 AM) [facility] Work Phone: Glucose [Mass/Vol] 177 mg/dL Invalid Interpretation Code 82 - 115 mg/dL [facility] Work Phone: LABORATORYOrdered By: Caitie Roman on 07-27-2022 Date of Onset [id number] Invalid Interpretation Code AH Auto Viro/Sero SS Employed in Healthcare No (07/27/22 9:01 AM) Invalid Interpretation Code AH Auto Viro/Sero SS First Test Unknown (07/27/22 9:01 AM) Invalid Interpretation Code AH Auto Viro/Sero SS FLUAV RNA ISA+probe Ql (Resp) Negative 7 (07/27/22 9:01 AM) Invalid Interpretation Code Negative AH Auto Viro/Sero SS Comment on above: Result Comment: [place] [id number] FLUBV RNA ISA+probe Ql (Resp) Negative 8 (07/27/22 9:01 AM) Invalid Interpretation Code Negative AH Auto Viro/Sero SS Comment on above: Result Comment: [place] [id number] Hospitalized Yes (07/27/22 9:01 AM) Invalid Interpretation [...] Comment on above: Result Comment: [place] [id number] SARS-CoV-2 (COVID-19) RNA ISA+probe Ql (Resp) Negative 6 (07/27/22 9:01 AM) Invalid Interpretation Code Negative AH Auto Viro/Sero SS Comment on above: Result Comment: [place] [id number] Symptomatic as Defined by CDC No (07/27/22 9:01 AM) Invalid Interpretation Code AH Auto Viro/Sero SS LABORATORYOrdered By: Jareth Farrell on 07-26-2022 Blood Glucose Testing Reason Routine (07/26/22 10:22 PM) [facility] Work Phone: Glucose [Mass/Vol] 176 mg/dL Invalid Interpretation Code 82 - 115 mg/dL [facility] Work Phone: Blood Glucose Testing Reason Routine (07/26/22 5:08 PM) [facility] Work Phone: Glucose [Mass/Vol] 232 mg/dL Invalid Interpretation Code 82 - 115 mg/dL [facility] Work Phone: LABORATORYOrdered By: Marcelina Freeman on 07-25-2022 Blood Glucose Interventions Administered agent to decrease blood sugar (07/25/22 4:57 PM) [facility] Work Phone: Blood Glucose Interventions Administered agent to decrease blood sugar (07/25/22 12:59 PM) [facility] Work Phone: LABORATORYOrdered By: Luana Bliss on 07-24-2022 Blood Glucose Interventions Administered agent to decrease blood sugar (07/24/22 1:00 PM) [facility] Work Phone: LABORATORYOrdered By: Poli Torres on 07-22-2022 Date of Onset [id number] Invalid Interpretation Code Auto Viro/Sero SS Employed in Healthcare No (07/22/22 6:30 AM) Invalid Interpretation Code Auto Viro/Sero SS First Test Yes (07/22/22 6:30 AM) Invalid Interpretation Code Auto Viro/Sero SS Hospitalized Yes (07/22/22 6:30 AM) Invalid Interpretation Code AH Auto Viro/Sero SS ICU No (07/22/22 6:30 AM) Invalid Interpretation Code AH Auto Viro/Sero SS Not (07/22/22 6:30 AM) Invalid Interpretation Code AH Auto Viro/Sero SS Resides in Congregate Care Setting No (07/22/22 6:30 AM) Invalid Interpretation Code Auto Viro/Sero SS SARS-CoV-2 (COVID-19) RNA ISA+probe [...] Code 82 - 115 mg/dL ADM SS Magnesium [Mass/Vol] 1.8 mg/dL Invalid Interpretation Code 1.6 - 2.4 mg/dL ADM SS Potassium [Moles/Vol] 3.5 mmol/L Invalid [...] Code 11.5 - 15.5 % Workflow SS GFR/1.73 sq M.predicted among blacks [...] 46.0 % Workflow SS Hemoglobin (Bld) [Mass/Vol] 8.9 G/dL [...] - 33.0 pg AH Workflow SS MCHC 33.4 G/dL Invalid Interpretation [...] 10^3/mcL AH Workflow SS Neutrophils/100 WBC (Bld) 80.8 % Invalid Interpretation Code 50.0 - 75.0 % AH Workflow SS Phosphate [Mass/Vol] 3.1 mg/dL Invalid Interpretation Code 2.4 - 5.1 mg/dL AH ADM SS Platelet mean volume (Bld) [Entitic vol] 6.3 fL Invalid Interpretation Code 6.6 - 10.5 fL AH Workflow SS Platelets (Bld) [#/Vol] 132 103/mcL Invalid Interpretation Code 150 - 450 10^3/mcL AH Workflow SS Potassium [Moles/Vol] 3.4 mmol/L Invalid Interpretation Code 3.5 - 5.0 mEq/L AH ADM SS RBC (Bld) [#/Vol] 2.94 106/mcL Invalid Interpretation Code 4.10 - 5.30 10^6/mcL AH Workflow SS Sodium [Moles/Vol] 145 mmol/L Invalid Interpretation Code 136 - 145 mEq/L ADM SS Urea nitrogen [Mass/Vol] 13.0 mg/dL Invalid Interpretation Code 8.0 - 22.0 mg/dL ADM SS Urea nitrogen/Creatinine [Mass ratio] 27.7 ratio Invalid Interpretation Code 10.0 - 22.0 ratio AH ADM SS WBC (Bld) [#/Vol] 8.3 103/mcL Invalid Interpretation Code 4.5 - 10.8 10^3/mcL Workflow SS LABORATORYOrdered By: Dede Rodriguez on 07-19-2022 CO2 [Moles/Vol] mEq/L Invalid Interpretation Code 22 - 32 mEq/L ADM SS Electrolyte Balance see comment Invalid Interpretation Code 4.0 - 15.0 ADM [...] 10^3/mcL AH Workflow SS Basophils/100 WBC (Bld) 0.3 % Invalid Interpretation Code 0.0 - 2.5 % Workflow SS Eosinophils (Bld) [#/Vol] 0.0 103/mcL Invalid Interpretation Code 0.0 - 0.7 10^3/mcL Workflow SS Eosinophils/100 WBC (Bld) 0.1 % Invalid Interpretation Code 0.0 - 6.0 % Workflow SS Erythrocyte distribution width (RBC) [Ratio] 15.2 % Invalid Interpretation Code 11.5 - 15.5 % AH Workflow SS Hematocrit (Bld) [Volume fraction] 26.0 % Invalid Interpretation Code 34.0 - 46.0 % Workflow SS Hemoglobin (Bld) [Mass/Vol] 8.6 G/dL Invalid Interpretation Code 12.0 - 16.0 G/dL AH Workflow SS Lymphocytes (Bld) [#/Vol] 0.9 103/mcL Invalid Interpretation Code 0.9 - 4.3 10^3/mcL AH Workflow SS Lymphocytes/100 WBC (Bld) 13.2 % Invalid Interpretation Code 20.0 - 40.0 % Workflow SS MCH (RBC) [Entitic mass] 30.4 pg Invalid Interpretation Code 27.0 - 33.0 pg AH Workflow SS MCHC 33.1 G/dL Invalid Interpretation Code 32.0 - 36.0 G/dL AH Workflow SS MCV (RBC) [Entitic vol] 91.6 fL Invalid Interpretation Code 80.0 - 99.0 fL Workflow SS Monocytes (Bld) [#/Vol] 0.7 103/mcL Invalid Interpretation Code 0.1 - 1.4 10^3/mcL Workflow SS Monocytes/100 WBC (Bld) 9.4 % Invalid Interpretation Code 2.0 - 13.0 % Workflow SS Neutrophils (Bld) [#/Vol] 5.4 103/mcL Invalid Interpretation Code 2.3 - 8.1 10^3/mcL Workflow SS Neutrophils/100 WBC (Bld) 77.0 % Invalid Interpretation Code 50.0 - 75.0 % Workflow SS Platelet mean volume (Bld) [Entitic vol] 6.4 fL Invalid Interpretation Code 6.6 - 10.5 fL Workflow SS Platelets (Bld) [#/Vol] 121 103/mcL Invalid Interpretation Code 150 - 450 10^3/mcL Workflow SS RBC (Bld) [#/Vol] 2.84 106/mcL [...] (Bld) [Moles/Vol] 5.8 mmol/L Invalid Interpretation Code AH Auto Chem SS CO2 (Bld) [Partial [...] [pH] Invalid Interpretation Code 7.380 - 7.460 AH Auto Chem SS LABORATORYOrdered By: Ritu Nguyễn on 07-13-2022 Barometric Pressure 703 mm[Hg] Invalid Interpretation Code AH Auto Chem SS Base excess Calc (Bld) [Moles/Vol] 6.1 mmol/L Invalid Interpretation Code AH Auto Chem SS CO2 (Bld) [Partial pressure] 46.7 mm[Hg] Invalid Interpretation Code 32.0 - 46.0 mm Hg AH Auto Chem SS CO2 [Moles/Vol] 32.4 mmol/L Invalid Interpretation Code 22.0 - 30.0 mmol/L AH Auto Chem SS HCO3 (Bld) [Moles/Vol] 31.0 mmol/L Invalid Interpretation Code 21.0 - 29.0 mmol/L AH Auto Chem SS Oxygen (Bld) [Partial pressure] 125.5 mm[Hg] Invalid Interpretation Code 74.0 - 108.0 mm Hg AH Auto Chem SS pH (Bld) 7.440 [pH] Invalid Interpretation Code 7.380 - 7.460 AH Auto Chem SS Barometric Pressure 703 mm[Hg] Invalid Interpretation Code Auto Chem SS Base excess Calc (Bld) [Moles/Vol] 6.7 mmol/L Invalid Interpretation Code Auto Chem SS Calcium.ionized (Bld) [Mass/Vol] 0.93 mmol/L Invalid Interpretation Code 1.12 - 1.32 mmol/L Auto Chem SS CO2 (Bld) [Partial pressure] [...] - 7.460 Auto Chem SS LABORATORYOrdered By: [employer] on 07-13-2022 CK [Catalytic activity/Vol] 266 [...] Invalid Interpretation Code 82 - 115 mg/dL Auto Chem SS Hematocrit (Bld) [Volume fraction] 34.0 % Invalid Interpretation Code 37.0 - 47.0 % AH Auto Chem SS Hemoglobin (Bld) [Mass/Vol] 11.5 G/dL Invalid Interpretation Code 12.0 - 16.0 G/dL Auto Chem SS Patient Location [facility] (07/13/22 1:28 PM) Invalid Interpretation Code AH Auto Chem SS Potassium [Moles/Vol] 3.6 mmol/L Invalid Interpretation Code 3.5 - 5.0 mEq/L AH Auto Chem SS Sodium [Moles/Vol] 144 mmol/L Invalid Interpretation Code 136 - 145 mEq/L Auto Chem SS Calcium.ionized (Bld) [Mass/Vol] 1.05 mmol/L Invalid Interpretation Code 1.12 - 1.32 mmol/L AH Auto Chem SS Glucose [Mass/Vol] 163 mg/dL Invalid Interpretation Code 82 - 115 mg/dL Auto Chem SS Hematocrit (Bld) [Volume fraction] 31.0 % Invalid Interpretation Code 37.0 - 47.0 % Auto Chem SS Hemoglobin (Bld) [Mass/Vol] 10.6 G/dL Invalid Interpretation Code 12.0 - 16.0 G/dL Auto Chem SS Patient Location [facility] (07/13/22 10:12 AM) Invalid Interpretation Code Auto Chem SS Potassium [Moles/Vol] 3.6 mmol/L Invalid Interpretation Code 3.5 - 5.0 mEq/L AH Auto Chem SS Sodium [Moles/Vol] 143 mmol/L Invalid Interpretation Code 136 - 145 mEq/L Auto Chem SS LABORATORYOrdered By: Jannet Diego on 07-13-2022 Magnesium [Mass/Vol] 1.6 mg/dL Invalid Interpretation Code 1.6 - 2.4 mg/dL ADM ERTAPENEM:SUSC:PT:ISOLATE:OR DQN:MICon 07-12-2022 Ertapenem TATO [Susc] >100,000 cfu/ml Escherichia coli [facility] Work Phone: Ertapenem TATO [Susc]on 07-12 Escherichia coli Escherichia coli [facility] Work Phone: LABORATORYOrdered By: Dana Lucero on [...] *ABN* (07/12/22 2:00 AM) Invalid Interpretation Code Chemistry S ER U Drug Screen Interp [...] Invalid Interpretation Code 80 - 97 % Hematology S Plt ADP 14 k/mm3 Invalid Interpretation Code Hematology S Plt Base 102 k/mm3 Invalid [...] of drugs routinely screened Invalid Interpretation Code Chemistry S ER Serum Drugs Screened: See Below (07/11/22 1:23 PM) Invalid Interpretation Code Chemistry S Ethanol [Mass/Vol] mg/dL Invalid Interpretation Code AH ADM SS Salicylates [Mass/Vol] mg/dL Invalid Interpretation Code 10.0 - 25.0 mg/dL AH ADM SS Tricyclic antidepressants Screen Ql Negative Invalid Interpretation Code AH ADM SS LABORATORYOrdered By: SYSTEM SYSTEM on 07-11-2022 Monocyte distribution width Auto (Bld) [Entitic vol] 20.94 Invalid Interpretation Code 0.00 - 20.00 Workflow SS Comment on above: Result Comment: For adults in ED, MDW>20.0 may be associated with a higher risk of sepsis during the first 12hrs of hospital admission LABORATORYOrdered By: Harrison Brower on 12-04-2021 Glucose [Mass/Vol] 213 mg/dL Invalid Interpretation Code 82 - 115 mg/dL [facility] Work Phone: LABORATORYOrdered By: Triston Nicholson [...] S CNCOon 11-30-2021 CNCO Letter Text Normal [facility] LABORATORYOrdered By: Dori Frances on 09-15-2021 Calcium [...] AO Auto Heme SS Initial Visit (Gastroenterol ogy)on 07-14-2020 Initial Visit (Gastroenterology) Diagnoses/Problems Assessed Right sided abdominal pain (789.09) (R10.9) Intermittent diarrhea (787.91) (R19.7) Chronic GERD (530.81) (K21.9) Hepatic steatosis (571.8) (K76.0) Orders SocHx: Former smoker Tobacco Use Screening; Status:Complete; Done: [id number] Perform:Not Applicable;Ordered; For:SocHx: Former smoker; Ordered By:Jenniffer [...] mixing and drinking quickly. This product is [id number]. Additionally take MiraLAX as needed for constipation. [...] ultrasound of the liver History of Present [id number] female spoken to over telephone referred for [...] Surgery History of Cholecystectomy History of Colonoscopy APRROX. 2013- DONE IN [place]- NORMAL History of Esophagogastroduodenoscop y APPROX- 2013- IN [place]- NORMAL History of Knee arthroscopy History of Lumpectomy LEFT- 2011- [place] History of Tubal ligation Family History [...] identified Cx Nom (U) Presumptive E. coli [facility] Work Phone: Bacteria identified Cx Nom (U) Positive [facility] Work Phone: Vital Signs Date Time Vital Sign Value Performing Clinician Facility 10-31-2023 11:16-0500 Body height 165.1 cm Elida Blume BICYCLE SERVICE TECHNICIAN-[employer] DIRECTOR Work Phone: [facility] 10-31-2023 11:16-0500 Body mass index (BMI) [Ratio] 26.79 kg/m2 Elida Blume BICYCLE SERVICE TECHNICIAN-[employer] DIRECTOR Work Phone: [facility] 10-31-2023 11:16-0500 Body weight 73.03 kg Elida Blume BICYCLE SERVICE TECHNICIAN-[employer] DIRECTOR Work Phone: [facility] 10-31-2023 11:16-0500 Diastolic blood pressure 61 mm[Hg] Elida Blume BICYCLE SERVICE TECHNICIAN-[employer] DIRECTOR Work Phone: [facility] 10-31-2023 11:16-0500 Heart rate 84 /min Elida Blume BICYCLE SERVICE TECHNICIAN-[employer]ISSION DIRECTOR Work Phone: [facility] 10-31-2023 11:16-0500 SaO2% (BldA) [Mass fraction] 97 % Elida Blume BICYCLE SERVICE TECHNICIAN-[employer]ISSION DIRECTOR Work Phone: [facility] 10-31-2023 11:16-0500 Systolic blood pressure 94 mm[Hg] Elida Blume BICYCLE SERVICE TECHNICIAN-[employer]ISSION DIRECTOR Work Phone: [facility] 10-17-2023 11:20-0500 Body height 165.1 cm Varsha Sotelo MD Work Phone: [facility] 10-17-2023 11:20-0500 Body mass index (BMI) [Ratio] 26.88 kg/m2 Varsha Sotelo MD Work Phone: [facility] 10-17-2023 11:20-0500 Body temperature 97.7 [degF] Varsha Sotelo MD Work Phone: [facility] 10-17-2023 11:20-0500 Body weight 73.26 kg Varsha Sotelo MD Work Phone: [facility] 10-17-2023 11:20-0500 Diastolic blood pressure 54 mm[Hg] Varsha Sotelo MD Work Phone: [facility] 10-17-2023 11:20-0500 Heart rate 74 /min Varsha Sotelo MD Work Phone: [facility] 10-17-2023 11:20-0500 Systolic blood pressure 94 mm[Hg] Varsha Sotelo MD Work Phone: [facility] 09-28-2023 09:24-0500 Body temperature 97.9 [degF] Velvet Donatelli-Seyler DO Work Phone: [facility] 09-28-2023 09:24-0500 Diastolic blood pressure 70 mm[Hg] Velvet Donatelli-Seyler DO Work Phone: [facility] 09-28-2023 09:24-0500 Heart rate 91 /min Velvet Donatelli-Seyler DO Work Phone: [facility] 09-28-2023 09:24-0500 Respiratory rate 16 /min Velvet Donatelli-Seyler DO Work Phone: [facility] 09-28-2023 09:24-0500 SaO2% (BldA) [Mass fraction] 99 % Velvet Donatelli-Seyler DO Work Phone: [facility] 09-28-2023 09:24-0500 Systolic blood pressure 111 mm[Hg] Velvet Donatelli-Seyler DO Work Phone: [facility] 09-19-2023 16:37-0500 Body temperature 37.0 Velvet Donatelli-Seyler DO Work Phone: [facility] 09-19-2023 16:37-0500 SaO2% (BldA) [Mass fraction] 99 % Velvet Longoriachandani-Seyler DO Work Phone: [facility] 09-19-2023 14:04-0500 Body temperature 37.0 degrees Celsius [facility] Comment on above: Order Comment: While on baseline/ home l evel of oxygen Result Comment: NOTE : Patient Results are Not Corrected for Temperature Performed By: #### 6 00-7 #### BEVERLEY Poe ([id number]) [facility] ([facility]) [address] [place] [address] 09-19-2023 14:04-0500 SaO2% (BldA) [Mass fraction] 99 % [facility] Comment on above: Order Comment: While on baseline/ home l evel of oxygen Performed By: #### 6 00-7 #### BEVERLEY Poe ([id number]) [facility] ([facility]) [address] [place] [address] 09-15-2023 18:44-0400 Body height 165.1 cm Velvet Longoriachandani-yler DO Work Phone: [facility] 09-15-2023 18:44-0400 Body mass index (BMI) [Ratio] 27.46 kg/m2 Velvet Longoriachandani-Seyler DO Work Phone: [facility] 09-15-2023 18:44-0400 Body weight 74.84 kg Velvet Longoriachandani-yler DO Work Phone: [facility] 09-15-2023 16:54-0400 Diastolic blood pressure 60 mm[Hg] Dr. Jonathan Dillard Sr. Work Phone: [facility] 09-15-2023 16:54-0400 Heart rate 88 /min Dr. Jonathan Dillard Sr. Work Phone: [facility] 09-15-2023 16:54-0400 Inhaled oxygen flow rate 3 L/min Dr. Jonathan Dillard Sr. Work Phone: [facility] 09-15-2023 16:54-0400 Respiratory rate 18 /min Dr. Jonathan Dillard Sr. Work Phone: [facility] 09-15-2023 16:54-0400 SaO2% (BldA) [Mass fraction] 100 % Dr. Jonathan Dillard Sr. Work Phone: [facility] 09-15-2023 16:54-0400 Systolic blood pressure 115 mm[Hg] Dr. Jonathan Dillard Sr. Work Phone: [facility] 09-15-2023 16:30-0400 Body temperature 97.8 [degF] Dr. Jonathan Dillard Sr. Work Phone: [facility] 09-14-2023 22:45-0400 Body height 165.[address] Jonathan Dillard Sr. Work Phone: [facility] 09-14-2023 22:45-0400 Body mass index (BMI) [Ratio] 29 kg/m2 Dr. Jonathan Dillard Sr. Work Phone: [facility] 09-14-2023 22:45-0400 Body weight 79.[address] Jonathan Dillard Sr. Work Phone: [facility] 09-08-2023 10:18-0400 Body mass index (BMI) [Ratio] 27.6 kg/m2 Dr. Jonathan Dillard Sr. Work Phone: [facility] 09-08-2023 10:18-0400 Body temperature 97.7 [degF] Dr. Jonathan Dillard Sr. Work Phone: [facility] 09-08-2023 10:18-0400 Body weight 75.[address] Jonathan Dillard Sr. Work Phone: [facility] 09-08-2023 10:18-0400 Diastolic blood pressure 55 mm[Hg] Dr. Jonathan Dillard Sr. Work Phone: [facility] 09-08-2023 10:18-0400 Heart rate 97 /min Dr. Jonathan Dillard Sr. Work Phone: [facility] 09-08-2023 10:18-0400 Inhaled oxygen flow rate 1 L/min Dr. Jonathan Dillard Sr. Work Phone: [facility] 09-08-2023 10:18-0400 Respiratory rate 18 /min Dr. Jonathan Dillard Sr. Work Phone: [facility] 09-08-2023 10:18-0400 SaO2% (BldA) [Mass fraction] 95 % Dr. Jonathan Dillard Sr. Work Phone: [facility] 09-08-2023 10:18-0400 Systolic blood pressure 99 mm[Hg] Dr. Jonathan Dillard Sr. Work Phone: [facility] 08-15-2023 11:54-0400 Diastolic Blood Pressure Non-Invasive [address] MARK JEREZ MD [facility] 08-15-2023 11:54-0400 Heart rate 91 /min DR MARK JEREZ MD [facility] 08-15-2023 11:54-0400 Respiratory rate 23 /min DR MARK JEREZ MD [facility] 08-15-2023 11:54-0400 Systolic Blood Pressure Non-Invasive [address] MARK JEREZ MD [facility] 08-15-2023 11:41-0400 Diastolic Blood Pressure Non-Invasive [address] MARK JEREZ MD [facility] 08-15-2023 11:41-0400 Heart rate 98 /min DR MARK JEREZ MD [facility] 08-15-2023 11:41-0400 Respiratory rate 19 /min DR MARK JEREZ MD [facility] 08-15-2023 11:41-0400 Systolic Blood Pressure Non-Invasive [address] MARK JEREZ MD [facility] 08-15-2023 11:25-0400 Body temperature 97.52 [degF] DR MARK JEREZ MD [facility] 08-15-2023 11:25-0400 Diastolic Blood Pressure Non-Invasive [address] MARK JEREZ MD [facility] 08-15-2023 11:25-0400 Heart rate 97 /min DR MARK JEREZ MD [facility] 08-15-2023 11:25-0400 Respiratory rate 24 /min DR MARK JEREZ MD [facility] 08-15-2023 11:25-0400 Systolic Blood Pressure Non-Invasive [address] MARK JEREZ MD [facility] 08-15-2023 11:15-0400 Respiratory Rate - Anes 25 br/min DR MARK JEREZ MD [facility] 08-15-2023 11:10-0400 Respiratory Rate - Anes 26 br/min DR MARK JEREZ MD [facility] 08-15-2023 11:05-0400 Respiratory Rate - Anes 9 br/min DR MARK JEREZ MD [facility] 08-15-2023 10:29-0400 Body height [address] MARK JEREZ MD [facility] 08-15-2023 10:29-0400 Body weight [address] MARK JEREZ MD [facility] 08-15-2023 10:29-0400 Body weight 34.89 kg/m2 DR MARK JEREZ MD [facility] 08-15-2023 10:19-0400 Body height [address] MARK JEREZ MD [facility] 08-15-2023 10:19-0400 Body temperature 98.06 [degF] DR MARK JEREZ MD [facility] 08-15-2023 10:19-0400 Body weight [address] MARK JEREZ MD [facility] 08-15-2023 10:19-0400 Heart rate 87 /min DR MARK JEREZ MD [facility] 08-10-2023 03:47-0400 Diastolic blood pressure 62 mm[Hg] MD Castillo [facility] 08-10-2023 03:47-0400 Heart rate 89 /min Jonathan [facility] 08-10-2023 03:47-0400 Respiratory rate 18 /min MD Castillo [facility] 08-10-2023 03:47-0400 SaO2% (BldA) [Mass fraction] 95 % [facility] 08-10-2023 03:47-0400 Systolic blood pressure 108 mm[Hg] [facility] 08-09-2023 22:56-0400 Body height 165.1 cm MD Jonathan Dillard [facility] 08-09-2023 22:56-0400 Body mass index (BMI) [Ratio] 29.3 kg/m2 [facility] 08-09-2023 22:56-0400 Body temperature 98.9 [degF] MD Jonathan ELMORE [facility] 08-09-2023 22:56-0400 Body weight 80.1 kg MD Jonathan ELMORE [facility] 08-09-2023 22:56-0400 Inhaled oxygen flow rate 2 L/min MD Jonathan ELMORE [facility] 07-14-2023 19:07-0400 Diastolic blood pressure 43 mm[Hg] [employer] Barber Carlisle [employer] Work Phone: [facility] 07-14-2023 19:07-0400 Heart rate 92 /min [employer] Barber Carlisle [employer] Work Phone: [facility] 07-14-2023 19:07-0400 Respiratory rate 17 /min [employer] Barber Carlisle [employer] Work Phone: [facility] 07-14-2023 19:07-0400 SaO2% (BldA) [Mass fraction] 98 % [employer] Barber Carlisle [employer] Work Phone: [facility] 07-14-2023 19:07-0400 Systolic blood pressure 104 mm[Hg] [employer] Barber Carlisle [employer] Work Phone: [facility] 07-14-2023 17:25-0400 Inhaled oxygen flow rate 1.5 L/min [employer] Barber Carlisle [employer] Work Phone: [facility] 07-14-2023 15:23-0400 Body mass index (BMI) [Ratio] 29.3 kg/m2 [employer] Barber Carlisle [employer] Work Phone: [facility] 07-14-2023 15:23-0400 Body weight 80 kg [employer] Barber Carlisle [employer] Work Phone: [facility] 07-14-2023 15:15-0400 Body height 165.1 cm [employer] Barber Carlisle [employer] Work Phone: [facility] 07-14-2023 15:15-0400 Body temperature 97.4 [degF] [employer] Barber Carlisle [employer] Work Phone: [facility] 05-04-2023 14:31-0400 Body height 165.1 cm [employer] Barber Carlisle [employer] Work Phone: [facility] 05-04-2023 14:31-0400 Body mass index (BMI) [Ratio] 30.1 kg/m2 [employer] Barber Carlisle [employer] Work Phone: [facility] 05-04-2023 14:31-0400 Body temperature 98.4 [degF] [employer] Barber Carlisle [employer] Work Phone: [facility] 05-04-2023 14:31-0400 Body weight 82.1 kg [employer] Barber Carlisle [employer] Work Phone: [facility] 05-04-2023 14:31-0400 Diastolic blood pressure 63 mm[Hg] [employer] Barber Carlisle [employer] Work Phone: [facility] 05-04-2023 14:31-0400 Heart rate 78 /min [employer] Barber Carlisle [employer] Work Phone: [facility] 05-04-2023 14:31-0400 Inhaled oxygen flow rate 1 L/min [employer] Barber Carlisle [employer] Work Phone: [facility] 05-04-2023 14:31-0400 Respiratory rate 15 /min [employer] Barber Carlisle [employer] Work Phone: [facility] 05-04-2023 14:31-0400 SaO2% (BldA) [Mass fraction] 96 % [employer] Barber Carlisle [employer] Work Phone: [facility] 05-04-2023 14:31-0400 Systolic blood pressure 103 mm[Hg] [employer] Barber Carlisle [employer] Work Phone: [facility] 04-19-2023 22:11-0400 Diastolic blood pressure 67 mm[Hg] [employer] Barber Carlisle [employer] Work Phone: [facility] 04-19-2023 22:11-0400 Respiratory rate 17 /min [employer] Barber Carlisle [employer] Work Phone: [facility] 04-19-2023 22:11-0400 SaO2% (BldA) [Mass fraction] 100 % [employer] Barber Carlisle [employer] Work Phone: [facility] 04-19-2023 22:11-0400 Systolic blood pressure 121 mm[Hg] [employer] Barber Carlisle [employer] Work Phone: [facility] 04-19-2023 20:00-0400 Body temperature 97.5 [degF] [employer] Barber Carlisle [employer] Work Phone: [facility] 04-19-2023 20:00-0400 Heart rate 88 /min [employer] Barber Carlisle [employer] Work Phone: [facility] 04-19-2023 20:00-0400 Inhaled oxygen flow rate 2 L/min [employer] Barber Carlisle [employer] Work Phone: [facility] 04-19-2023 16:41-0400 Body height 165.1 cm [employer] Barber Carlisle [employer] Work Phone: [facility] 04-19-2023 16:41-0400 Body mass index (BMI) [Ratio] 31.8 kg/m2 [employer] Barber Carlisle [employer] Work Phone: [facility] 04-19-2023 16:41-0400 Body weight 86.9 kg [employer] Barber Carlisle [employer] Work Phone: [facility] 04-04-2023 14:11-0400 Body temperature 97.4 [degF] [employer] Barber Carlisle [employer] Work Phone: [facility] 04-04-2023 14:11-0400 Diastolic blood pressure 66 mm[Hg] [employer] Barber Carlisle [employer] Work Phone: [facility] 04-04-2023 14:11-0400 Heart rate 76 /min [employer] Barber Carlisle [employer] Work Phone: [facility] 04-04-2023 14:11-0400 Respiratory rate 18 /min [employer] Barber Carlisle [employer] Work Phone: [facility] 04-04-2023 14:11-0400 SaO2% (BldA) [Mass fraction] 97 % [employer] Barber Solisson [employer] Work Phone: [facility] 04-04-2023 14:11-0400 Systolic blood pressure 124 mm[Hg] [employer] Barber Solisson [employer] Work Phone: [facility] 03-23-2023 14:35-0400 Body height 165.1 cm [employer] Barber Solisson [employer] Work Phone: [facility] 03-23-2023 14:35-0400 Body temperature 98.2 [degF] [employer] Barber Solisson [employer] Work Phone: [facility] 03-23-2023 14:35-0400 Diastolic blood pressure 65 mm[Hg] [employer] Barber Solisson [employer] Work Phone: [facility] 03-23-2023 14:35-0400 Heart rate 80 /min [employer] Barber Solisson [employer] Work Phone: [facility] 03-23-2023 14:35-0400 Respiratory rate 16 /min [employer] Barber Solisson [employer] Work Phone: [facility] 03-23-2023 14:35-0400 SaO2% (BldA) [Mass fraction] 99 % [employer] Barber Solisson [employer] Work Phone: [facility] 03-23-2023 14:35-0400 Systolic blood pressure 100 mm[Hg] [employer] Barber Solisson [employer] Work Phone: [facility] 03-09-2023 15:29-0400 Body temperature 98.2 [degF] [employer] Barber Solisson [employer] Work Phone: [facility] 03-09-2023 15:29-0400 Diastolic blood pressure 63 mm[Hg] [employer] Barber Solisson [employer] Work Phone: [facility] 03-09-2023 15:29-0400 Heart rate 89 /min [employer] Barber Carlisle [employer] Work Phone: [facility] 03-09-2023 15:29-0400 SaO2% (BldA) [Mass fraction] 96 % [employer] Barber Carlisle [employer] Work Phone: [facility] 03-09-2023 15:29-0400 Systolic blood pressure 117 mm[Hg] [employer] Barber Carlisle [employer] Work Phone: [facility] 03-09-2023 15:26-0400 Body height 165.1 cm [employer] Barber Carlisle [employer] Work Phone: [facility] 02-25-2023 13:27-0400 Heart rate 89 /min [employer] Barber Carlisle [employer] Work Phone: [facility] 02-25-2023 13:27-0400 Respiratory rate 20 /min [employer] Barber Carlisle [employer] Work Phone: [facility] 02-25-2023 11:49-0400 Body temperature 97.3 [degF] [employer] Barber Carlisle [employer] Work Phone: [facility] 02-25-2023 11:49-0400 Diastolic blood pressure 44 mm[Hg] [employer] Barber Carlisle [employer] Work Phone: [facility] 02-25-2023 11:49-0400 Inhaled oxygen flow rate 1 L/min [employer] Barber Carlisle [employer] Work Phone: [facility] 02-25-2023 11:49-0400 SaO2% (BldA) [Mass fraction] 98 % [employer] Barber Carlisle [employer] Work Phone: [facility] 02-25-2023 11:49-0400 Systolic blood pressure 103 mm[Hg] [employer] Barber Carlisle [employer] Work Phone: [facility] 02-25-2023 06:00-0400 Body mass index (BMI) [Ratio] 30.1 kg/m2 [employer] Barber Carlisle [employer] Work Phone: [facility] 02-25-2023 06:00-0400 Body weight 82.2 kg [employer] Barber Carlisle [employer] Work Phone: [facility] 02-21-2023 13:46-0400 Body height 165.1 cm [employer] Barber Carlisle [employer] Work Phone: [facility] 02-21-2023 07:00-0400 Inhaled oxygen concentration 50 % [employer] Barber Carlisle [employer] Work Phone: [facility] 02-18-2023 00:46-0400 Body temperature 96 [degF] [employer] Barber Carlisle [employer] Work Phone: [facility] 02-18-2023 00:46-0400 Diastolic blood pressure 65 mm[Hg] [employer] Barber Carlisle [employer] Work Phone: [facility] 02-18-2023 00:46-0400 Heart rate 70 /min [employer] Barber Carlisle [employer] Work Phone: [facility] 02-18-2023 00:46-0400 Respiratory rate 18 /min [employer] Barber Carlisle [employer] Work Phone: [facility] 02-18-2023 00:46-0400 SaO2% (BldA) [Mass fraction] 100 % [employer] Barber Carlisle [employer] Work Phone: [facility] 02-18-2023 00:46-0400 Systolic blood pressure 103 mm[Hg] [employer] Barber Carlisle [employer] Work Phone: [facility] 02-17-2023 22:25-0400 Inhaled oxygen concentration 100 % [employer] Barber Carlisle [employer] Work Phone: [facility] 02-17-2023 22:17-0400 Body height 165.1 cm [employer] Barber Carlisle [employer] Work Phone: [facility] 02-17-2023 22:17-0400 Body mass index (BMI) [Ratio] 33.8 kg/m2 [employer] Barber Carlisle [employer] Work Phone: [facility] 02-17-2023 22:17-0400 Body weight 92.3 kg [employer] Barber Carlisle [employer] Work Phone: [facility] 01-11-2023 13:49-0500 Body mass index (BMI) [Ratio] 32.5 kg/m2 [employer] Barber Carlisle [employer] Work Phone: [facility] 01-11-2023 13:49-0500 Body temperature 98.5 [degF] [employer] Barber Carlisle [employer] Work Phone: [facility] 01-11-2023 13:49-0500 Body weight 88.45 kg [employer] Barber Carlisle [employer] Work Phone: [facility] 01-11-2023 13:49-0500 Diastolic blood pressure 71 mm[Hg] [employer] Barber Carlisle [employer] Work Phone: [facility] 01-11-2023 13:49-0500 Heart rate 82 /min [employer] Barber Carlisle [employer] Work Phone: [facility] 01-11-2023 13:49-0500 Respiratory rate 17 /min [employer] Barber Carlisle [employer] Work Phone: [facility] 01-11-2023 13:49-0500 SaO2% (BldA) [Mass fraction] 98 % [employer] Barber Carlisle [employer] Work Phone: [facility] 01-11-2023 13:49-0500 Systolic blood pressure 110 mm[Hg] [employer] Barber Carlisle [employer] Work Phone: [facility] 11-11-2022 10:49-0500 Body height 165 cm [employer] Barber Carlisle [employer] Work Phone: [facility] Work Phone: 11-11-2022 10:35-0500 Body mass index (BMI) [Ratio] 31.9 kg/m2 [employer] Barber Orestes [employer] Work Phone: [facility] 11-11-2022 10:35-0500 Body temperature 98 [degF] [employer] Barber Solisethan [employer] Work Phone: [facility] 11-11-2022 10:35-0500 Body weight 87.08 kg [employer] Barber Orestes [employer] Work Phone: [facility] 11-11-2022 10:35-0500 Diastolic blood pressure 70 mm[Hg] [employer] Barber Orestes [employer] Work Phone: [facility] 11-11-2022 10:35-0500 Heart rate 82 /min [employer] Barber Orestes [employer] Work Phone: [facility] 11-11-2022 10:35-0500 Respiratory rate 18 /min [employer] Barber Orestes [employer] Work Phone: [facility] 11-11-2022 10:35-0500 SaO2% (BldA) [Mass fraction] 91 % [employer] Barber Solisethan [employer] Work Phone: [facility] 11-11-2022 10:35-0500 Systolic blood pressure 115 mm[Hg] [employer] Barber Orestes [employer] Work Phone: [facility] 07-27-2022 09:29-0400 Heart rate 93 /min DR TRACE MATTHEWS MD [facility] 07-27-2022 09:13-0400 Body temperature 96.8 [degF] DR TRACE MATTHEWS MD [facility] 07-27-2022 09:13-0400 Diastolic Blood Pressure NBP [address] TRACE MATTHEWS MD [facility] 07-27-2022 09:13-0400 Heart rate 99 /min DR TRACE MATTHEWS MD [facility] 07-27-2022 09:13-0400 Mean blood pressure 83 mm[Hg] DR TRACE MATTHEWS MD [address] [place] [address] 07-27-2022 09:13-0400 Reason For Taking VItal Signs DR TRACE MATTHEWS MD [address] 07-27-2022 09:13-0400 Systolic Blood Pressure NBP [address] TRACE MATTHEWS MD [address] [place] [address] 07-27-2022 04:38-0400 Body temperature 97.7 [degF] DR TRACE MATTHEWS MD [address] [place] [address] 07-27-2022 04:38-0400 Diastolic Blood Pressure NBP [address] TRACE MATTHEWS MD [address] [place] [address] 07-27-2022 04:38-0400 Heart rate 79 /min DR TRACE MATTHEWS MD [address] [place] [address] 07-27-2022 04:38-0400 Mean blood pressure 75 mm[Hg] DR TRACE MATTHEWS MD [address] [place] [address] 07-27-2022 04:38-0400 Reason For Taking VItal Signs DR TRACE MATTHEWS MD [address] [place] [address] 07-27-2022 04:38-0400 Respiratory rate 16 /min DR TRACE MATTHEWS MD [address] [place] [address] 07-27-2022 04:38-0400 Systolic Blood Pressure NBP [address] TRACE MATTHEWS MD [address] [place] [address] 07-26-2022 21:08-0400 Body temperature 98.24 [degF] DR TRACE MATTHEWS MD [address] [place] [address] 07-26-2022 21:08-0400 Diastolic Blood Pressure NBP [address] TRACE MATTHEWS MD [address] [place] [address] 07-26-2022 21:08-0400 Heart rate 113 /min DR TRACE MATTHEWS MD [address] [place] [address] 07-26-2022 21:08-0400 Mean blood pressure 74 mm[Hg] DR TRACE MATTHEWS MD [address] [place] [address] 07-26-2022 21:08-0400 Reason For Taking VItal Signs DR TRACE MATTHEWS MD [address] [place] [address] 07-26-2022 21:08-0400 Respiratory rate 18 /min DR TRACE MATTHEWS MD [address] [place] [address] 07-26-2022 21:08-0400 Systolic Blood Pressure NBP [address] TRACE MATTHEWS MD [address] [place] [address] 07-26-2022 16:00-0400 Respiratory rate 16 /min DR TRACE MATTHEWS MD [address] [place] [address] 07-26-2022 09:18-0400 Heart rate 100 /min DR TRACE MATTHEWS MD [address] [place] [address] 07-26-2022 00:35-0400 Diastolic blood pressure 52 mm[Hg] DR TRACE MATTHEWS MD [address] [place] [address] 07-26-2022 00:35-0400 Mean blood pressure 71 mm[Hg] DR TRACE MATTHEWS MD [address] [place] [address] 07-26-2022 00:35-0400 Systolic blood pressure 108 mm[Hg] DR TRACE MATTHEWS MD [address] [place] [address] 07-25-2022 07:55-0400 Heart rate 86 /min DR TRACE MATTHEWS MD [address] [place] [address] 07-24-2022 23:40-0400 Diastolic blood pressure 57 mm[Hg] DR TRACE MATTHEWS MD [address] [place] [address] 07-24-2022 23:40-0400 Mean blood pressure 81 mm[Hg] DR TRACE MATTHEWS MD [address] [place] [address] 07-24-2022 23:40-0400 Systolic blood pressure 128 mm[Hg] DR TRACE MATTHEWS MD [address] [place] [address] 07-24-2022 20:26-0400 Diastolic blood pressure 54 mm[Hg] DR TRACE MATTHEWS MD [address] [place] [address] 07-24-2022 20:26-0400 Mean blood pressure 77 mm[Hg] DR TRACE MATTHEWS MD [address] [place] [address] 07-24-2022 20:26-0400 Systolic blood pressure 124 mm[Hg] DR TRACE MATTHEWS MD [address] [place] [address] 07-21-2022 13:01-0400 Body temperature 96.62 [degF] DR TRACE MATTHEWS MD [address] [place] [address] 07-15-2022 11:49-0400 Diastolic blood pressure 45 mm[Hg] DR TRACE MATTHEWS MD [address] [place] [address] 07-15-2022 11:49-0400 Mean blood pressure 59 mm[Hg] DR TRACE MATTHEWS MD [address] [place] [address] 07-15-2022 11:49-0400 Systolic blood pressure 106 mm[Hg] DR TRACE MATTHEWS MD [address] [place] [address] 07-15-2022 09:23-0400 Diastolic blood pressure 80 mm[Hg] DR TRACE MATTHEWS MD [address] [place] [address] 07-15-2022 09:23-0400 Mean blood pressure 111 mm[Hg] DR TRACE MATTHEWS MD [address] [place] [address] 07-15-2022 09:23-0400 Systolic blood pressure 157 mm[Hg] DR TRACE MATTHEWS MD [address] [place] [address] 07-15-2022 08:53-0400 Diastolic blood pressure 85 mm[Hg] DR TRACE MATTHEWS MD [address] [place] [address] 07-15-2022 08:53-0400 Mean blood pressure 113 mm[Hg] DR TRACE MATTHEWS MD [address] [place] [address] 07-15-2022 08:53-0400 Systolic blood pressure 153 mm[Hg] DR TRACE MATTHEWS MD [address] [place] [address] 07-15-2022 04:10-0400 SaO2% (BldA) [Mass fraction] 97.5 % DR TRACE MATTHEWS MD [facility] 07-13-2022 19:08-0400 SaO2% (BldA) [Mass fraction] 98.9 % DR TRACE MATTHEWS MD [facility] 07-13-2022 17:39-0400 SaO2% (BldA) [Mass fraction] 99.1 % DR TRACE MATTHEWS MD [facility] 07-13-2022 16:25-0400 Body temperature 97.84 [degF] DR TRACE MATTHEWS MD [address] [place] [address] 07-13-2022 16:20-0400 Body temperature 97.77 [degF] DR TRACE MATTHEWS MD [address] [place] [address] 07-13-2022 16:15-0400 Body temperature 97.7 [degF] DR TRACE MATTHEWS MD [address] [place] [address] 07-13-2022 11:30-0400 Body height [address] TRACE MATTHEWS MD [address] [place] [address] 07-13-2022 11:30-0400 Body weight 98.[address] TRACE MATTHEWS MD [address] [place] [address] 07-13-2022 11:30-0400 Body weight 36.25 kg/m2 DR TRACE MATTHEWS MD [address] [place] [address] 07-11-2022 17:05-0400 Heart rate 97 /min DR TRACE MATTHEWS MD [address] [place] [address] 07-11-2022 14:31-0400 Heart rate 91 /min DR TRACE MATTHEWS MD [address] [place] [address] 07-11-2022 11:20-0400 Body weight 98.[address] TRACE MATTHEWS MD [address] [place] [address] 07-11-2022 11:20-0400 Heart rate 92 /min DR TRACE MATTHEWS MD [facility] 07-11-2022 10:00-0400 Diastolic blood pressure 76 mm[Hg] MARIANA RAMOS MD [facility] 07-11-2022 10:00-0400 Heart rate 89 /min MARIANA RAMOS MD [facility] 07-11-2022 10:00-0400 Mean blood pressure 97 mm[Hg] MARIANA RAMOS MD [facility] 07-11-2022 10:00-0400 Systolic blood pressure 139 mm[Hg] MARIANA RAMOS MD [facility] 07-11-2022 08:30-0400 Diastolic blood pressure 74 mm[Hg] MARIANA RAMOS MD [facility] 07-11-2022 08:30-0400 Heart rate 92 /min MARIANA RAMOS MD [facility] 07-11-2022 08:30-0400 Respiratory rate 16 /min MARIANA RAMOS MD [facility] 07-11-2022 08:30-0400 Systolic blood pressure 147 mm[Hg] MARIANA RAMOS MD [facility] 07-11-2022 07:34-0400 Body temperature 98.42 [degF] MARIANA RAMOS MD [facility] 07-11-2022 07:34-0400 Diastolic blood pressure 86 mm[Hg] MARIANA RAMOS MD [facility] 07-11-2022 07:34-0400 Heart rate 92 /min MARIANA RAMOS MD [facility] 07-11-2022 07:34-0400 Mean blood pressure 110 mm[Hg] MARIANA RAMOS MD [facility] 07-11-2022 07:34-0400 Respiratory rate 18 /min MARIANA RAMOS MD [facility] 07-11-2022 07:34-0400 Systolic blood pressure 158 mm[Hg] MARIANA RAMOS MD [facility] 12-04-2021 13:19-0500 Diastolic blood pressure 79 mm[Hg] LEONA RIOS MD [facility] 12-04-2021 13:19-0500 Heart rate 101 /min LEONA RIOS MD [facility] 12-04-2021 13:19-0500 Reason For Taking VItal Signs LEONA RIOS MD [facility] 12-04-2021 13:19-0500 Respiratory rate 18 /min LEONA RIOS MD [facility] 12-04-2021 13:19-0500 Systolic blood pressure 140 mm[Hg] LEONA RIOS MD [facility] 12-04-2021 11:12-0500 Diastolic blood pressure 76 mm[Hg] LEONA RIOS MD [facility] 12-04-2021 11:12-0500 Heart rate 106 /min LEONA RIOS MD [facility] 12-04-2021 11:12-0500 Reason For Taking VItal Signs LEONA RIOS MD [facility] 12-04-2021 11:12-0500 Respiratory rate 18 /min LEONA RIOS MD [facility] 12-04-2021 11:12-0500 Systolic blood pressure 139 mm[Hg] LEONA RIOS MD [facility] 12-04-2021 08:20-0500 Body temperature 98.24 [degF] LEONA RIOS MD [facility] 12-04-2021 08:20-0500 Diastolic blood pressure 79 mm[Hg] LEONA RIOS MD [facility] 12-04-2021 08:20-0500 Heart rate 98 /min LEONA RIOS MD [facility] 12-04-2021 08:20-0500 Respiratory rate 16 /min LEONA RIOS MD [facility] 12-04-2021 08:20-0500 Systolic blood pressure 145 mm[Hg] LEONA RIOS MD [facility] 09-15-2021 20:35-0400 Diastolic blood pressure 80 mm[Hg] JANKI ADAMS MD [facility] 09-15-2021 20:35-0400 Heart rate 100 /min JANKI ADAMS MD [facility] 09-15-2021 20:35-0400 Mean blood pressure 103 mm[Hg] JANKI ADAMS MD [facility] 09-15-2021 20:35-0400 Respiratory rate 22 /min JANKI ADMAS MD [facility] 09-15-2021 20:35-0400 Systolic blood pressure 148 mm[Hg] JANKI ADAMS MD [facility] 09-15-2021 19:24-0400 SaO2% (BldA) [Mass fraction] 99 % JANKI ADAMS MD [facility] 09-15-2021 18:26-0400 Body temperature 99.14 [degF] JANKI ADAMS MD [facility] 09-15-2021 18:26-0400 Body weight 96 kg JANKI ADAMS MD [facility] 09-15-2021 18:26-0400 Diastolic blood pressure 88 mm[Hg] JANKI ADAMS MD [facility] 09-15-2021 18:26-0400 Heart rate 107 /min JANKI ADAMS MD [facility] 09-15-2021 18:26-0400 Respiratory rate 20 /min JANKI ADAMS MD [facility] 09-15-2021 18:26-0400 Systolic blood pressure 156 mm[Hg] JANKI ADAMS MD [facility] Encounters Encounter Date Encounter Type Care Provider Facility Start: 09-11-2025 ambulatory Jonathan Depmonroeo CATARINA Facili ty:[facility] Start: 09-10-2025 End: 09-10-2025 Emergency department patient visit [facility] Facility:[facility] Start: 09-09-2025 ambulatory Jonathan Gilma OLS Facili ty:[facility] Start: 09-06-2025 ambulatory Jonathan Deperro Sr. Facili ty:[facility] Start: 09-04-2025 ambulatory Jonathan Deperro Sr. Facili ty:[facility] Start: 11-01-2023 Patient encounter status Marlon sidney DANIEL Work Phone: [facility] Work Phone: Start: 10-31-2023 End: 10-31-2023 ambulatory BARBER CARLISLE [facility] Start: 10-31-2023 Evaluation and manag ement of inpatient VARSHA SOTELO [facility] Start: 10-31-2023 End: 10-31-2023 Office outpatient visit 25 minutes Elida DANIEL Work Phone: [facility] Comment on above: Preop cardiovascular exam (Primary Dx); Chronic systolic heart failure (CMS/HCC) Start: 10-31-2023 End: 10-31-2023 Patient encounter status Elida Villareal APRN-SILVINO Work Phone: [facility] Work Phone: Start: 10-31-2023 End: 10-31-2023 ambulatory ELIDA VILLAREAL [facility] Start: 10-28-2023 End: 11-02-2023 ambulatory RITU HARRELL [facility] Start: 10-28-2023 End: 10-28-2023 ambulatory BARBER DUNAWAY [facility] Start: 10-28-2023 End: 10-28-2023 Encounter for other preprocedural examination BARBER DUNAWAY [facility] Start: 10-28-2023 End: 10-28-2023 Admission to [facility] Work Phone: Start: 10-28-2023 End: 10-28-2023 Subsequent hospital visit by physician Marnie [id number] Cr Nonv1 Holter/Ecg Resource [facility] Comment on above: Encounter for preadm ission testing Start: 10-20-2023 End: 10-20-2023 ambulatory BARBER DUNAWAY [facility] Start: 10-17-2023 End: 10-17-2023 ambulatory VARSHA MARAVILLADEEPTI [facility] Start: 10-17-2023 End: 10-17-2023 Office outpatient visit 40 minutes Varsha Sotelo MD Work Phone: [facility] Comment on above: Colovaginal fistula (Primary Dx) Start: 10-11-2023 End: 10-11-[address] Jonathan Dillard Sr. Work Phone: [facility] Work Phone: Start: 10-11-2023 End: 10-11-[address] Jonathan Dillard Sr. Work Phone: [facility] Ul[facility] Work Phone: Start: 10-11-[address] Jonathan acevedo Sr. Work Phone: [facility] Start: 10-04-[address] Jonathan acevedo Sr. Work Phone: [facility] Start: 10-03-[address] Jonathan acevedo Sr. Work Phone: [facility] Start: 09-15-2023 End: 09-28-2023 [facility] Start: 09-15-2023 End: 09-28-2023 Evaluation and management of inpatient Velvet Buckner Sameerhilario Work Phone: [facility] Start: 09-15-2023 End: 09-28-2023 Patient encounter status Velvet Buckner Barbi-Jazr DO Work Phone: [facility] Start: 09-15-2023 Non-patient / Non-visit Dr. Kalen Hinds Work Phone: [facility] Start: 09-15-2023 Non-patient / Non-visit Dr. Kalen Hinds Work Phone: [facility] Phys[facility] Work Phone: Start: 09-14-2023 End: 09-15-2023 Emergency department patient visit Dr. Jonathan Dillard Sr. Work Phone: [facility]-Emergency Department Work Phone: Start: 09-13-2023 End: 09-13-[address] Jonathan Dillard Sr. Work Phone: [facility] Work Phone: Start: 09-13-2023 End: 09-13-[address] Jonathan Dillard Sr. Work Phone: [facility] Start: 09-13-[address] Jonathan acevedo Sr. Work Phone: [facility] Start: 09-09-2023 End: 09-09-[address] Jonathan Dillard Sr. Work Phone: [facility]-Laboratory, Specimen Work Phone: Start: 09-08-[address] Jonathan Dillard Sr. Work Phone: [facility] On[facility] Start: 09-08-2023 End: 09-08-[address] Jonathan Dillard Sr. Work Phone: [facility] Work Phone: Start: 08-31-2023 End: 08-31-2023 ambulatory [facility] Work Phone: Start: 08-31-2023 End: 08-31-2023 Departed Referred [facility] Start: 08-31-2023 Registered Referred MD Jonathan ELMORE [facility] Start: 08-29-2023 End: 08-30-[address] OSEI WOODWARD MD Facility:A Start: 08-29-2023 End: 08-29-[address] OSEI WOODWARD MD [facility] Start: 08-17-2023 End: 08-18-[address] MARK JEREZ MD Facility:B Start: 08-17-2023 End: 08-17-[address] MARK JEREZ MD [facility] Start: 08-16-2023 End: 08-16-2023 ambulatory MD Jonathan ELMORE [facility] Work Phone: Start: 08-16-2023 End: 08-16-2023 Departed Referred MD Jonathan ELMORE [facility] Start: 08-15-[address] MARK LOPEZ MD Facility:B Start: 08-15-2023 End: 08-16-[address] MARK JEREZ MD Facility:B Start: 08-15-2023 End: 08-15-[address] MARK JEREZ MD [facility] Start: 08-09-2023 End: 08-10-2023 Emergency department patient visit MD Jonathan Dillard [facility]-Emergency Department Work Phone: Start: 07-14-2023 End: 07-14-2023 Emergency department patient visit BELLOWS CHARGER ASSEMBLER-C Barber Carlisle BELLOWS CHARGER ASSEMBLER Work Phone: [facility]-Emergency Department Work Phone: Start: 06-28-2023 End: 06-28-2023 [facility] Start: 06-28-2023 End: 06-28-2023 [facility] Start: 06-28-2023 Registered Referred BELLOWS CHARGER ASSEMBLER-C Flora Carlisle BELLOWS CHARGER ASSEMBLER Work Phone: [facility] Start: 06-13-2023 End: 06-13-2023 ambulatory BELLOWS CHARGER ASSEMBLER-Andrea Carlisle BELLOWS CHARGER ASSEMBLER Work Phone: [facility] Work Phone: Start: 06-13-2023 End: 06-13-2023 Departed Referred BELLOWS CHARGER ASSEMBLER-Andrea Carlisle BELLOWS CHARGER ASSEMBLER Work Phone: [facility] Start: 05-04-2023 End: 05-04-2023 Patient encounter procedure BELLOWS CHARGER ASSEMBLER-Andrea Carlisle BELLOWS CHARGER ASSEMBLER Work Phone: [facility] Work Phone: Start: 05-04-2023 Registered Recurring BELLOWS CHARGER ASSEMBLER-C Conor Carlisle BELLOWS CHARGER ASSEMBLER Work Phone: [facility] Oncology Start: 04-19-2023 End: 04-19-2023 Emergency department patient visit BELLOWS CHARGER ASSEMBLER-C Barber Carlisle BELLOWS CHARGER ASSEMBLER Work Phone: [facility]-Emergency Department Start: 04-12-2023 End: 04-12-2023 ambulatory BELLOWS CHARGER ASSEMBLER-C Barber Carlisle BELLOWS CHARGER ASSEMBLER Work Phone: [facility] Work Phone: Start: 04-12-2023 End: 04-12-2023 Departed Referred BELLOWS CHARGER ASSEMBLER-C Barber Carlisle BELLOWS CHARGER ASSEMBLER Work Phone: [facility] Start: 04-04-2023 End: 04-04-2023 Patient encounter procedure BELLOWS CHARGER ASSEMBLER-C Barber Carlisle BELLOWS CHARGER ASSEMBLER Work Phone: [facility]-Laboratory, Specimen Start: 04-04-2023 End: 04-04-2023 Patient encounter procedure BELLOWS CHARGER ASSEMBLER-C Barber Carlisle BELLOWS CHARGER ASSEMBLER Work Phone: [facility] Start: 03-28-2023 End: 03-28-2023 ambulatory BELLOWS CHARGER ASSEMBLER-C Barber Carlisle BELLOWS CHARGER ASSEMBLER Work Phone: [facility] Work Phone: Start: 03-28-2023 End: 03-28-2023 Departed Referred BELLOWS CHARGER ASSEMBLER-C Barber Carlisle BELLOWS CHARGER ASSEMBLER Work Phone: [facility] Start: 03-28-2023 Registered Referred BELLOWS CHARGER ASSEMBLER-C Flora Carlisle BELLOWS CHARGER ASSEMBLER Work Phone: [facility] Start: 03-23-2023 End: 03-23-2023 Patient encounter procedure BELLOWS CHARGER ASSEMBLER-C Barber Carlisle BELLOWS CHARGER ASSEMBLER Work Phone: [facility] Start: 03-18-2023 End: 03-18-2023 ambulatory BELLOWS CHARGER ASSEMBLER-C Barber Carlisle BELLOWS CHARGER ASSEMBLER Work Phone: [facility] Work Phone: Start: 03-18-2023 End: 03-18-2023 Patient encounter procedure BELLOWS CHARGER ASSEMBLER-C Barber Carlisle BELLOWS CHARGER ASSEMBLER Work Phone: [facility] Start: 03-09-2023 Registered Recurring BELLOWS CHARGER ASSEMBLER-C Conor Carlisle BELLOWS CHARGER ASSEMBLER Work Phone: [facility] Start: 03-09-2023 End: 03-09-2023 Patient encounter procedure BELLOWS CHARGER ASSEMBLER-C Barber Carlisle BELLOWS CHARGER ASSEMBLER Work Phone: [facility] Start: 03-08-2023 Registered Referred BELLOWS CHARGER ASSEMBLER-C Flora Carilsle BELLOWS CHARGER ASSEMBLER Work Phone: [facility] Start: 03-04-2023 Registered Referred BELLOWS CHARGER ASSEMBLER-C Flora Carlisle BELLOWS CHARGER ASSEMBLER Work Phone: [facility] Start: 02-28-2023 End: 02-28-2023 ambulatory BELLOWS CHARGER ASSEMBLER-C Barber Carlisle BELLOWS CHARGER ASSEMBLER Work Phone: [facility] Work Phone: Start: 02-28-2023 End: 02-28-2023 Departed Referred BELLOWS CHARGER ASSEMBLER-C Barber Carlisle BELLOWS CHARGER ASSEMBLER Work Phone: [facility] Start: 02-25-2023 Non-patient / Non-visit [employer]LLOWS CHARGER ASSEMBLER-C Deepika Carlisle BELLOWS CHARGER ASSEMBLER Work Phone: [facility] Start: 02-24-2023 Non-patient / Non-visit BELLOWS CHARGER ASSEMBLER-C Deepika Carlisle BELLOWS CHARGER ASSEMBLER Work Phone: [facility] Start: 02-23-2023 Non-patient / Non-visit BELLOWS CHARGER ASSEMBLER-C Deepika Carlisle BELLOWS CHARGER ASSEMBLER Work Phone: [facility] Start: 02-23-2023 Non-patient / Non-visit BELLOWS CHARGER ASSEMBLER-C Deepika Carlisle BELLOWS CHARGER ASSEMBLER Work Phone: [facility] Start: 02-22-2023 Non-patient / Non-visit BELLOWS CHARGER ASSEMBLER-C L indsey Lorson BELLOWS CHARGER ASSEMBLER Work Phone: [place] Start: 02-22-2023 Non-patient / Non-visit BELLOWS CHARGER ASSEMBLER-C L indsey Lorson BELLOWS CHARGER ASSEMBLER Work Phone: [facility] Start: 02-21-2023 Non-patient / Non-visit BELLOWS CHARGER ASSEMBLER-C L indsey Lorson BELLOWS CHARGER ASSEMBLER Work Phone: [place] Start: 02-21-2023 Non-patient / Non-visit BELLOWS CHARGER ASSEMBLER-C L indsey Lorson BELLOWS CHARGER ASSEMBLER Work Phone: [facility] Start: 02-20-2023 Non-patient / Non-visit BELLOWS CHARGER ASSEMBLER-C L indsey Lorson BELLOWS CHARGER ASSEMBLER Work Phone: [facility] Start: 02-20-2023 Non-patient / Non-visit BELLOWS CHARGER ASSEMBLER-C L indsey Lorson BELLOWS CHARGER ASSEMBLER Work Phone: [place] Start: 02-20-2023 Non-patient / Non-visit BELLOWS CHARGER ASSEMBLER-C L indsey Lorson BELLOWS CHARGER ASSEMBLER Work Phone: [facility] Start: 02-19-2023 Non-patient / Non-visit BELLOWS CHARGER ASSEMBLER-C L indsey Lorson BELLOWS CHARGER ASSEMBLER Work Phone: [place] Start: 02-19-2023 Non-patient / Non-visit BELLOWS CHARGER ASSEMBLER-C L indsey Lorson BELLOWS CHARGER ASSEMBLER Work Phone: [facility] Start: 02-18-2023 Non-patient / Non-visit BELLOWS CHARGER ASSEMBLER-C L indsey Lorson BELLOWS CHARGER ASSEMBLER Work Phone: [facility] Start: 02-18-2023 Non-patient / Non-visit BELLOWS CHARGER ASSEMBLER-C L indsey Lorson BELLOWS CHARGER ASSEMBLER [facility] Start: 04-07-2023 Non-patient / Non-visit BELLOWS CHARGER ASSEMBLER-C Deepika Carlisle BELLOWS CHARGER ASSEMBLER Work Phone: [facility] Start: 02-18-2023 End: 02-25-2023 Evaluation and management of inpatient BELLOWS CHARGER ASSEMBLER-C Barber Carlisle BELLOWS CHARGER ASSEMBLER Work Phone: [facility]-Intensive Care Unit Start: 02-07-2023 End: 02-07-2023 ambulatory BELLOWS CHARGER ASSEMBLER-C Barber Carlisle BELLOWS CHARGER ASSEMBLER Work Phone: [facility] Work Phone: Start: 02-07-2023 End: 02-07-2023 Departed Referred BELLOWS CHARGER ASSEMBLER-C Barber Carlisle BELLOWS CHARGER ASSEMBLER Work Phone: [facility] Start: 02-07-2023 Registered Referred BELLOWS CHARGER ASSEMBLER-C Flora Carlisle BELLOWS CHARGER ASSEMBLER Work Phone: [facility] Start: 01-11-2023 End: 01-11-2023 Patient encounter procedure BELLOWS CHARGER ASSEMBLER-C Barber Carlisle BELLOWS CHARGER ASSEMBLER Work Phone: [facility] Start: 01-11-2023 Registered Recurring BELLOWS CHARGER ASSEMBLER-C Conor Carlisle BELLOWS CHARGER ASSEMBLER Work Phone: [facility] Start: 11-11-2022 End: 11-11-2022 Patient encounter procedure BELLOWS CHARGER ASSEMBLER-C Barber Carlisle BELLOWS CHARGER ASSEMBLER Work Phone: [facility] Start: 11-01-2022 End: 11-01-2022 ambulatory BELLOWS CHARGER ASSEMBLER-C Barber Carlisle BELLOWS CHARGER ASSEMBLER Work Phone: [facility] Work Phone: Start: 11-01-2022 End: 11-01-2022 Departed Referred BELLOWS CHARGER ASSEMBLER-C Barber Carlisle BELLOWS CHARGER ASSEMBLER Work Phone: [facility] Start: 11-01-2022 Registered Referred BELLOWS CHARGER ASSEMBLER-C Flora Carlisle BELLOWS CHARGER ASSEMBLER Work Phone: [facility] Start: 10-26-2022 End: 10-27-2022 ambulatory TRACE MATTHEWS MD Facility:B Start: 10-26-2022 End: 10-26-[address] TRACE MATTHEWS MD [facility] Start: 10-05-2022 End: 10-05-2022 Patient encounter procedure RENETTA ASTORGA BICYCLE SERVICE TECHNICIAN-AERONAUTICS COMMISSION DIRECTOR [facility] Start: 10-05-2022 End: 10-06-2022 ambulatory BELLOWS CHARGER ASSEMBLER-C Barber Carlisle BELLOWS CHARGER ASSEMBLER Work Phone: [facility] Work Phone: Start: 10-05-2022 End: 10-05-2022 Departed Referred BELLOWS CHARGER ASSEMBLER-C Barber Carlisle BELLOWS CHARGER ASSEMBLER Work Phone: [facility] Start: 10-05-2022 Registered Referred [facility] Start: 09-29-2022 End: 09-29-2022 ambulatory BELLOWS CHARGER ASSEMBLER-C Barber Carlisle BELLOWS CHARGER ASSEMBLER Work Phone: [facility] Work Phone: Start: 09-29-2022 End: 09-29-2022 Departed Referred BELLOWS CHARGER ASSEMBLER-C Barber Carlisle BELLOWS CHARGER ASSEMBLER Work Phone: [facility] Start: 09-29-2022 Registered Referred [facility] Start: 09-09-2022 End: 09-09-2022 Patient encounter procedure RENETTA ASTORGA BICYCLE SERVICE TECHNICIAN-AERONAUTICS COMMISSION DIRECTOR [facility] Start: 09-08-2022 End: 09-08-2022 ambulatory [facility] Work Phone: Start: 09-08-2022 End: 09-08-2022 Departed Referred [facility] Start: 09-08-2022 Registered Referred [facility] Start: 09-01-2022 End: 09-01-2022 ambulatory [facility] Work Phone: Start: 09-01-2022 End: 09-01-2022 Departed Referred [facility] Start: 09-01-2022 Registered Referred [facility] Start: 08-26-2022 End: 08-26-2022 ambulatory [facility] Work Phone: Start: 08-26-2022 End: 08-26-2022 Departed Referred [facility] Start: 08-12-2022 End: 08-12-[address] TRACE MATTHEWS MD [facility] Start: 08-10-2022 End: 08-10-2022 Admission to same day surgery center BARBER CARLISLE BICYCLE SERVICE TECHNICIANLightSquared [facility] Start: 08-02-2022 Registered Referred [facility] Start: 07-14-2022 End: 07-14-2022 Admission to same day surgery center ARYAN VAZ BICYCLE SERVICE TECHNICIAN-AERONAUTICS COMMISSION DIRECTOR [facility] Start: 07-11-2022 End: 07-27-2022 Evaluation and management of inpatient DR TRACE MATTHEWS MD [facility] Start: 07-11-2022 End: 07-11-2022 Emergency department patient visit MARIANA RAMOS MD [facility] Start: 12-04-2021 End: 12-04-2021 Emergency department patient visit LEONA RIOS MD [facility] Start: 09-15-2021 End: 09-15-2021 Emergency department patient visit JANKI ADAMS MD [facility] Start: 09-15-2021 End: 09-15-2021 Patient encounter procedure BARBER CARLISLE BICYCLE SERVICE TECHNICIAN-AERONAUTICS COMMISSION DIRECTOR [facility] Start: 08-15-2017 Ambulatory [facility] Procedures Date Procedure Procedure Detail Performing Clinician [...] W Auto Differential panel - Blood BARBER CARLISLE Start: 10-28-2023 Comprehensive metabolic 2000 panel - Serum or Plasma BARBER CARLISLE Start: 10-28-2023 Prealbumin [Mass/volume] in Serum or Plasma BARBER CARLISLE Start: 10-28-2023 STAPHYLOCOCCUS AUREUS/MRSA COLONIZATION, CULTURE BARBER CARLISLE Start: 10-28-2023 TYPE AND SCREEN BARBER CARLISLE Start: 10-11-[address] Jonathan Escamilla Sr. Work Phone: Start: 09-28-2023 SARS-COV-2 PCR, SYMPTOMATIC BARBERALIVIA GOLD ON Start: 09-28-2023 CBC panel - Blood by Automated count BARBER CARLISLE Start: 09-28-2023 Magnesium [Mass/volume] in Serum or Plasma BARBER CARLISLE Start: 09-28-2023 RENAL FUNCTION PANEL BARBER CARLISLE Start: 09-28-2023 Sars-cov-2 detection by dna/rna aNncy Treviño BICYCLE SERVICE TECHNICIAN-AERONAUTICS COMMISSION DIRECTOR Work Phone: Start: 09-28-2023 Blood count complete automated Fran Brenner MD Work Phone: Start: 09-27-2023 ECG 12-LEAD BARBER CARLISLE Start: 09-27-2023 PROVIDER CERTIFICATION BARBERALIVIA CARLISLE Start: 09-27-2023 DISCHARGE PATIENT BARBER CARLISLE [...] 09-27-2023 Sars-cov-2 detection by dna/rna Nancy Treviño APRN-AERONAUTICS COMMISSION DIRECTOR Work Phone: Start: 09-27-2023 CBC panel - Blood by Automated count BARBER CARLISLE Start: 09-27-2023 Cyanocobalamin vitamin b-12 BARBER GOLD ON Start: 09-27-2023 FOLATE BARBER IRMAETHAN Start: 09-27-2023 Magnesium [Mass/volume] in Serum or Plasma BARBER ORESTES Start: 09-27-2023 RENAL FUNCTION PANEL BARBER CARLISLE Start: 09-27-2023 Renal function panel Fran Brenner MD Work Phone: Start: 09-26-2023 TELEMETRY MONITORING BARBER SOLISETHAN Start: 09-26-2023 CT ANGIO CORONARY ART WITH [...] Blood by Automated count BARBER CARLISLE Start: 09-24-2023 Magnesium [Mass/volume] in Serum or Plasma BARBER CARLISLE Start: 09-24-2023 RENAL FUNCTION PANEL BARBER CARLISLE Start: 09-24-2023 Renal function panel Fran Brenner MD Work Phone: Start: 09-24-2023 Glucose [Mass/volume] in Serum or Plasma BARBER CARLISLE Start: 09-23-2023 Glucose quantitative blood xcpt reagent strip Varsha Sotelo MD Work Phone: Start: 09-23-2023 Glucose [Mass/volume] in Serum or Plasma BARBER CARLISLE Start: 09-23-2023 Glucose quantitative blood xcpt reagent strip Varsha Sotelo MD Work Phone: Start: 09-23-2023 Carcinoembryonic antigen cea BARBER LONG Start: 09-23-2023 Carcinoembryonic antigen cea Fran phan MD Work Phone: Start: 09-23-2023 INSERT URETHRAL CATHETER BARBER CARLISLE Start: 09-23-2023 CARDIAC CATHETERIZATION - CORONARY FLORA CARLISLE Start: 09-23-2023 CBC panel - Blood by Automated count BARBER CARLISLE Start: 09-23-2023 Magnesium [Mass/volume] in Serum or Plasma BARBER CARLISLE Start: 09-23-2023 RENAL FUNCTION PANEL BARBER CARLISLE Start: 09-23-2023 Renal function panel Fran Brenner [...] MD Work Phone: Start: 09-22-2023 CASE REQUEST DISTILLERY LABORER BARBER ORESTES Start: 09-22-2023 Glucose [Mass/volume] in Serum or Plasma BARBER ORESTES Start: 09-22-2023 Glucose quantitative blood xcpt reagent strip Varsha Sotelo MD Work Phone: Start: 09-22-2023 Glucose [Mass/volume] in Serum or Plasma BARBER CARLISLE Start: 09-22-2023 CBC panel - Blood by Automated count BARBER CARLISLE Start: 09-22-2023 Magnesium [Mass/volume] in Serum or Plasma BARBER CARLISLE Start: 09-22-2023 RENAL FUNCTION PANEL BARBER ORESTES Start: 09-22-2023 End: 09-22-2023 Renal function panel [...] PELVIS W AND WO IV CONTRAST BARBER Deepika URIAS Start: 09-21-2023 Glucose [Mass/volume] in Serum or Plasma BARBER CARLISLE Start: 09-21-2023 Mri pelvis w/o & w/contrast material Kang Julian MD Work Phone: Start: 09-21-2023 CBC panel - Blood by Automated count BARBER CARLISLE Start: 09-21-2023 Magnesium [Mass/volume] in Serum or [...] Glucose quantitative blood xcpt reagent strip Varsha Sotleo MD Work Phone: Start: 09-20-2023 Glucose [Mass/volume] in Serum or Plasma BARBER CARLISLE Start: 09-20-2023 IP CONSULT TO HEART FAILURE BARBER OWEN Start: 09-20-2023 Bacteria identified in Urine by [...] Work Phone: Start: 09-20-2023 CANCER ANTIGEN 19-9 BARBER CARLISLE Start: 09-20-2023 CBC panel - Blood by Automated count BARBER CARLISLE Start: 09-20-2023 HEPATITIS C ANTIBODY BARBER CARLISLE Start: 09-20-2023 HIV 1/2 ANTIGEN/ANTIBODY SCREEN WIH REFLEX TO CONFIRMATION BARBER CARLISLE Start: 09-20-2023 Magnesium [Mass/volume] in Serum or Plasma BARBER CARLISLE Start: 09-20-2023 RENAL FUNCTION PANEL BAREBR CARLISLE Start: 09-20-2023 Glucose [Mass/volume] in Serum or Plasma BARBER CARLISLE Start: 09-20-2023 Iaad ia hiv-1 ag w/hiv-1 & hiv-2 antbdy single Kang Julian MD Work Phone: Start: 09-20-2023 Immunoassay tumor antigen quantitative ca 19-9 Michelle Hendrickson MD Work Phone: Start: 11-07-2023 Renal function panel Fran Brenner MD Work Phone: Start: 09-20-2023 Glucose quantitative blood xcpt reagent strip Varsha Sotelo MD Work Phone: Start: 09-20-2023 Glucose [Mass/volume] in Serum or Plasma BARBER CARLISLE Start: 09-20-2023 Glucose quantitative blood xcpt reagent strip Varsha Sotelo MD Work Phone: Start: 09-20-2023 Glucose [Mass/volume] in Serum or Plasma BARBER SOLISETHAN Start: 09-19-2023 Glucose [Mass/volume] in Serum or Plasma BARBER ORESTES Start: 09-19-2023 Glucose quantitative blood xcpt reagent strip Varsha Sotelo MD Work Phone: Start: 09-19-2023 Glucose [Mass/volume] in Serum or Plasma BARBER CARLISLE Start: 09-19-2023 US ABDOMEN LIMITED LIVER BARBER SOLISETHAN Start: 09-19-2023 VASC US ABDOMINAL/PELVIC DUPLEX COMPLETE [...] blood ph direct celina xcpt pulse oximitry Knag Julian MD Work Phone: Start: 09-19-2023 CBC panel - Blood by Automated count BARBER CARLISLE Start: 09-19-2023 COAGULATION SCREEN BARBER CARLISLE Start: 09-19-2023 Magnesium [Mass/volume] in Serum or Plasma BARBER CARLISLE Start: 09-19-2023 Natriuretic peptide B [Mass/volume] in Blood BARBER CARLISLE Start: 09-19-2023 RENAL FUNCTION PANEL BARBER CARLISLE Start: 09-19-2023 Glucose quantitative blood xcpt reagent strip Varsha Sotelo MD Work Phone: Start: 09-19-2023 XR CHEST 1 VIEW BARBER CRALISLE Start: 09-19-2023 Renal function panel Fran Brenner [...] Start: 09-18-2023 HEPATITIS B SURFACE ANTIGEN BARBER GOLD ON Start: 09-18-2023 IRON AND TIBC BARBER CARLISLE [...] 09-16-2023 TRANSFER PATIENT TO NEW UNIT BARBER SOLIS ETHAN Start: 09-16-2023 Glucose [Mass/volume] in Serum or Plasma BARBER CARLISLE Start: 09-16-2023 Glucose quantitative blood xcpt reagent strip Delfin Melara MD Work Phone: Start: 09-16-2023 Glucose [Mass/volume] in Serum or Plasma BARBER CARLISLE Start: 09-16-2023 CBC panel - Blood by Automated count BARBER CARLISLE Start: 09-16-2023 Magnesium [Mass/volume] in Serum or Plasma BARBER CARLISLE Start: 09-16-2023 RENAL FUNCTION PANEL BARBER CARLISLE Start: 09-16-2023 Glucose quantitative blood xcpt reagent strip Delfin Melara MD Work Phone: Start: 09-16-2023 Renal function panel Gina Rush MD Work Phone: Start: 09-16-2023 Glucose [Mass/volume] in Serum or Plasma BARBER CARLISLE Start: 09-16-2023 Glucose quantitative blood xcpt reagent strip Delfin Melara MD Work Phone: Start: 09-16-2023 Glucose [Mass/volume] in Serum or Plasma BARBER CARILSLE Start: 09-16-2023 Glucose quantitative blood xcpt reagent strip Delfin Melara MD Work Phone: Start: 09-15-2023 COAGULATION SCREEN BARBER CARLISLE Start: 09-15-2023 CBC W Auto Differential panel - Blood BARBER CARLISLE Start: 09-15-2023 Comprehensive metabolic 2000 panel - Serum or Plasma BARBER CARLISLE Start: 09-15-2023 Magnesium [Mass/volume] in Serum or Plasma BARBER CARLISLE Start: 09-15-2023 TYPE AND SCREEN BARBER CARLISLE Start: 09-15-2023 WEIGH PATIENT BARBER CARLISLE Start: [...] of abdomen and pelvis with intravenous contrast BELLOWS CHARGER ASSEMBLER-C Barber Carlisle BELLOWS CHARGER ASSEMBLER Work Phone: Start: 04-19-2023 Computed tomography of abdomen and pelvis with intravenous contrast BELLOWS CHARGER ASSEMBLER-C Barber Carlisle BELLOWS CHARGER ASSEMBLER Work Phone: Start: 04-12-2023 Urine culture BELLOWS CHARGER ASSEMBLER-C Barber Carlisle BELLOWS CHARGER ASSEMBLER Work Phone: Start: 03-18-2023 Bilateral mammography BELLOWS CHARGER ASSEMBLER-C Barber Carlisle BELLOWS CHARGER ASSEMBLER Work Phone: Start: 03-18-2023 Ultrasonography of breast BELLOWS CHARGER ASSEMBLER-C Barber Carlisle BELLOWS CHARGER ASSEMBLER Work Phone: Start: 03-18-2023 CT of soft tissues of neck with contrast BELLOWS CHARGER ASSEMBLER-C Barber Carlisle BELLOWS CHARGER ASSEMBLER Work Phone: Start: 02-20-2023 Plain chest X-ray BELLOWS CHARGER ASSEMBLER-C Barber Carlisle BELLOWS CHARGER ASSEMBLER Work Phone: Start: 02-19-2023 Plain chest X-ray BELLOWS CHARGER ASSEMBLER-C Barber Carlisle BELLOWS CHARGER ASSEMBLER Work Phone: Start: 02-18-2023 Ultrasonography of thorax BELLOWS CHARGER ASSEMBLER-C Barber Carlisle BELLOWS CHARGER ASSEMBLER Work Phone: Start: 02-18-2023 CT of chest without contrast BELLOWS CHARGER ASSEMBLER-C Carlton Carlisle BELLOWS CHARGER ASSEMBLER Work Phone: Start: 02-17-2023 CT of head without contrast BELLOWS CHARGER ASSEMBLER-C Barber Carlisle BELLOWS CHARGER ASSEMBLER Work Phone: Start: 02-17-2023 Plain chest X-ray BELLOWS CHARGER ASSEMBLER-C Barber Carlisle BELLOWS CHARGER ASSEMBLER Work Phone: Start: 07-13-2022 Excision of cervical intervertebral disc BARBER CARLISLE BICYCLE SERVICE TECHNICIAN-AERONAUTICS COMMISSION DIRECTOR Comment on above: ACDF Appendectomy Kandi Sharma Appendectomy BARBER CARLISLE BICYCLE SERVICE TECHNICIAN-AERONAUTICS COMMISSION DIRECTOR Comment on above: left water taken off Arthroscopic knee operation BARBER CARLISLE BICYCLE SERVICE TECHNICIAN-AERONAUTICS COMMISSION DIRECTOR Comment on above: right Arthroscopy of knee Kandi rai Bacteria identified in Blood by Culture BELLOWS CHARGER ASSEMBLER-C Barber Carlisle BELLOWS CHARGER ASSEMBLER Work Phone: Cardiac catheter (physical object) BARBER CARLISLE BICYCLE SERVICE TECHNICIAN-AERONAUTICS COMMISSION DIRECTOR Comment on above: years ago Cardiac catheterization Marilyn Sharma Cataract surgery Kandi Castorena er Cholecystectomy Kandi Francis r Cholecystectomy BARBER ALLA ON BICYCLE SERVICE TECHNICIAN-AERONAUTICS COMMISSION DIRECTOR Clostridium difficile detection BELLOWS CHARGER ASSEMBLER-C Barber Carlisle BELLOWS CHARGER ASSEMBLER Work Phone: Colonoscopy Kandi Hugginsjosefinaopal Colonoscopy BARBER CARLISLE BICYCLE SERVICE TECHNICIAN-AERONAUTICS COMMISSION DIRECTOR Esophagogastroduodenoscopy E llen Lintopal Esophagogastroduodenoscopy Deepika CARLISLE BICYCLE SERVICE TECHNICIAN-AERONAUTICS COMMISSION DIRECTOR Ligation of fallopian tube E lljohn Hugginstopal Ligation of fallopian tube Deepika CARLISLE BICYCLE SERVICE TECHNICIAN-AERONAUTICS COMMISSION DIRECTOR Lumpectomy of breast Kandi Deepika intopal Lumpectomy of breast BARBER CARLISLE BICYCLE SERVICE TECHNICIAN-AERONAUTICS COMMISSION DIRECTOR Comment on above: left None (qualifier value) FLORA EY ORESTES BICYCLE SERVICE TECHNICIAN-AERONAUTICS COMMISSION DIRECTOR Phacoemulsification of cataract with intraocular lens implantation BARBER ORESTES BICYCLE SERVICE TECHNICIAN-AERONAUTICS COMMISSION DIRECTOR Comment on above: both eyes Urine culture Urine culture BELLOWS CHARGER ASSEMBLER-C Barber Carlisle BELLOWS CHARGER ASSEMBLER Work Phone: Urine culture BELLOWS CHARGER ASSEMBLER-C Barber Carlisle BELLOWS CHARGER ASSEMBLER Work Phone: Viral antigen assay BELLOWS CHARGER ASSEMBLER-C Bhavna Carlisle BELLOWS CHARGER ASSEMBLER Work Phone: Plan of Treatment Date Care Activity Detail Author Start: 10-31-2024 Creatinine measurement Creatinine Le abiodun [facility] Start: 10-31-2024 Potassium measurement Potassium Leve l [facility] Start: 09-20-2024 Echocardiography Echocardiogram [facility] Start: 06-20-2024 Glaucoma screening [facility] Start: 12-19-2023 Hemoglobin A1c measurement [facility] Start: 11-07-2023 End: 11-01-2024 Renal function 2000 panel - Serum or Plasma Renal Function Panel Lab Routine Chronic systolic heart failure (CMS/HCC) Expected: 11/07/2023 (Approximate), Expires: 11/01/2024 [facility] Service Area Work Phone: Comment on above: Expected: 11/07/2023 (Approximate), Expires: 11/01/2024 Start: 2023 End: 2023 Admission to same day surgery center 2023 10:00 AM EST - 2023 1:35 PM EST Surgery [facility] [place] [address] [place] [address] [place] [address] Department [place] [address] Resection Laparoscopy Sigmoid Colon [16922 (CPT )] [facility] [place] Comment on above: Resection Laparoscop y Sigmoid Colon [59756 (CPT )] Start: 2023 End: 2023 Laparoscopy colectomy partial w/anastomosis Resection Laparoscopy Sigmoid Colon Diverticulitis 2023 10:00 AM EST Virtual [facility] Start: 2023 Subsequent hospital visit by physician 2023 8:30 AM EST Hospital Encounter [facility] [place] [address] [place] [id number] [place] [address] [place] [address] [facility] [place] Start: 10-31-2023 End: 10-31-2023 Patient encounter procedure 10/31/2023 11:40 AM EST Office Visit [facility] [address] [address] Elida Villareal, BICYCLE SERVICE TECHNICIAN-AERONAUTICS COMMISSION DIRECTOR [address] [place] [address] [facility] Start: 10-28-2023 End: 10-28-2023 Admission to establishment 10/28/2023 8:45 AM EST Pre-Admission Testing [facility] [address] [place] [id number] [facility] Start: 10-17-2023 End: 10-17-2024 CBC W Auto Differential panel - Blood CBC and Auto Differential Lab Routine Colovaginal fistula Expected: 10/17/2023 (Approximate), Expires: 10/17/2024 [facility] Work Phone: Comment on above: Expected: 10/17/2023 (Approximate), Expires: 10/17/2024 Start: 10-17-2023 End: 10-17-2024 Comprehensive metabolic 2000 panel - Serum or Plasma Comprehensive metabolic panel Lab Routine Colovaginal fistula Expected: 10/17/2023 (Approximate), Expires: 10/17/2024 [facility] Service Area Work Phone: Comment on above: Expected: 10/17/2023 (Approximate), Expires: 10/17/2024 Start: 10-17-2023 End: 10-17-2024 Prealbumin [Mass/volume] in Serum or Plasma Prealbumin Lab Routine Colovaginal fistula Expected: 10/17/2023 (Approximate), Expires: 10/17/2024 [facility] Work Phone: Comment on above: Expected: 10/17/2023 (Approximate), Expires: 10/17/2024 Start: 10-17-2023 End: 10-17-2023 ambulatory [facility] Start: 10-12-2023 End: 10-12-2023 ambulatory [facility] Start: 09-15-2023 [facility] Start: 09-15-2023 Bacteria identified in Blood by Culture Blood Culture [facility] Start: 09-15-2023 Hospital admission, emergency, from emergency room, medical nature [facility] Start: 09-15-2023 End: 09-15-2023 Blood culture [facility] Start: 09-15-2023 Blood culture [facility] Start: 09-08-[address] [facility] Work Phone: Start: 08-31-2023 Bacteria identified in Urine by Culture [facility] Start: 08-31-2023 [facility] Start: 03-23-[address] [facility] Work Phone: Start: 02-28-2023 [facility] Start: 02-27-2023 [facility] Start: 02-26-2023 [facility] Start: 02-25-2023 Patient discharge [facility] Start: 02-23-2023 Physiotherapy of chest [facility] Start: 02-21-2023 Care planning and pr oblem solving actions [facility] Start: 02-20-2023 End: 02-21-2023 [facility] Start: 02-20-2023 [facility] Start: 02-19-2023 Referral to document scanner [facility] Start: 02-18-2023 Vital signs measurements [facility] Start: 02-18-2023 Consultation [facility] Start: 02-18-2023 Speech therapy assessment [facility] Start: 02-18-2023 Following clinical p athway protocol [facility] Start: 02-18-2023 Assessment of risk o f venous thromboembolism [facility] Start: 02-18-2023 Assessment using assessment scale [facility] Start: 02-18-2023 Catheterization of vein [facility] Start: 02-18-2023 Consultation [facility] Start: 02-18-2023 Elevation of head of bed [facility] Start: 02-18-2023 Inhalation therapy procedure [facility] Start: 02-18-2023 Insertion of cathete r into peripheral vein [facility] Start: 02-18-2023 Measuring intake and output [facility] Start: 02-18-2023 Mouth care [facility] Start: 02-18-2023 Notification of physician [facility] Start: 02-18-2023 Oxygen therapy [facility] Start: 02-18-2023 Patient referral to dietitian [facility] Start: 02-18-2023 Providing care accor ding to standard [facility] Start: 02-18-2023 Referral to occupati onal therapist [facility] Start: 02-18-2023 Referral to service [facility] Start: 02-18-2023 Removal of urinary catheter [facility] Start: 02-18-2023 Speech therapy assessment [facility] Start: 02-18-2023 Vital signs measurements [facility] Start: 02-18-2023 End: 02-18-2023 [facility] Start: 02-18-2023 Bacterial nucleic ac id assay [facility] Start: 02-18-2023 Streptococcus pneumo niae antigen assay [facility] Start: 02-18-2023 [facility] Start: 02-18-2023 Verification routine [facility] Start: 02-18-2023 Admission procedure [facility] Start: 02-18-2023 CT of chest without contrast Chest without Contrast [facility] Start: 02-17-2023 End: 02-17-2023 Blood culture [facility] Start: 02-17-2023 Airway suction technique [facility] Start: 02-17-2023 [facility] Start: 2009 Hepatitis B Vaccines (1 of 3 - Risk 3-dose series) Hepatitis B Vaccines (1 of 3 - Risk 3-dose series) [facility] Start: 2009 [facility] Start: 1999 Zoster Vaccines (1 of 2) Zoste r Vaccines (1 of 2) [facility] Start: 1999 [facility] Start: 1989 Screening for malign ant neoplasm of breast [facility] Start: 1971 DTaP/Tdap/Td Vaccine s (1 - Tdap) DTaP/Tdap/Td Vaccines (1 - Tdap) [facility] Start: 1971 [facility] Start: 1968 Hepatitis A Vaccines (1 of 2 - Risk 2-dose series) Hepatitis A Vaccines (1 of 2 - Risk 2-dose series) [facility] Start: 1968 Urine screening for protein [facility] Start: 1968 [facility] Start: 1959 Diabetic foot examination [facility] Start: 1955 Pneumococcal Vaccine : 65+ Years (1 - PCV) Pneumococcal Vaccine: 65+ Years (1 - PCV) [facility] Start: 1955 [facility] Start: 05-04-1950 COVID-19 Vaccine (#1) COVID-19 Vacci ne (#1) [facility] Start: 05-04-1950 [facility] Start: 1949 Lipid panel [facility] Start: 1949 Medicare Annual Well ness Visit [facility] Start: 1949 Screening for malign ant neoplasm of colon [facility] Bacteria identified in Blood by Culture Blood Culture [facility] Bacteria identified in Sputum by Respiratory culture [facility] End: 09-23-2023 Cardiac catheterization study [facility] Work Phone: CBC panel - Blood by Automated count [facility] Work Phone: CBC W Auto Different ial panel - Blood [facility] Work Phone: CBC W Auto Different ial panel - Blood [facility] CBC W Auto Different ial panel - Blood [facility] End: 09-28-2023 Cobalamin (Vitamin B12) [Mass/volume] in Serum or Plasma [facility] Work Phone: CT Neck W contrast IV [facility] ECG 12 lead ECG 12 lead ECG Routine Encounter for preadmission testing 11/02/2023 2:17 PM EST [facility] Work Phone: Electrocardiogram, 1 2-lead PRN ACS symptoms [facility] Work Phone: Ferritin [Mass/volum e] in Serum or Plasma [facility] Work Phone: Ferritin [Mass/volum e] in Serum or Plasma [facility] Ferritin [Mass/volum e] in Serum or Plasma [facility] Folate [Mass/volume] in Serum or Plasma [facility] Work Phone: End: 09-28-2023 Folate [Mass/volume] in Serum or Plasma [facility] Work Phone: Glucose [Mass/volume ] in Serum or Plasma [facility] Work Phone: Glucose [Mass/volume ] in Serum or Plasma [facility] Work Phone: End: 09-15-2023 Incentive spirometry Instruct [facility] Work Phone: Iron and Iron bindin g capacity panel - Serum or Plasma [facility] Work Phone: Iron and Iron bindin g capacity panel - Serum or Plasma [facility] Iron and Iron bindin g capacity panel - Serum or Plasma [facility] Lactate dehydrogenas e measurement [facility] Work Phone: Lactate dehydrogenas e measurement [facility] Lactate dehydrogenas e measurement [facility] Legionella pneumophi la Ag [Presence] in Urine [facility] Magnesium [Mass/volu me] in Serum or Plasma [facility] Magnesium [Mass/volu me] in Serum or Plasma [facility] Work Phone: Magnesium [Mass/volu me] in Serum or Plasma [facility] Work Phone: Microscopic observat ion [Identifier] in Unspecified specimen by Gram stain Gram Stain [facility] Patient Education [facility] Work Phone: Patient referral [facility] Work Phone: Renal function 1999 panel - Serum or Plasma [facility] Work Phone: Renal function 1999 panel - Serum or Plasma [facility] Work Phone: Respiratory Culture Respiratory Culture [facility] Reticulocyte count [facility] Work Phone: Reticulocyte count [facility] Vitamin B12 measurement [facility] Work Phone: Vitamin B12 measurement [facility] Immunizations Immunization Date Immunization Notes Care Provider Fa andrew 08-09-2023 influenza virus vaccine, unspecified formulation DR OSEI WOODWARD MD [facility] 08-23-2022 influenza virus vaccine, unspecified formulation DR OSEI WOODWARD MD [facility] 11-28-2021 influenza virus vaccine, unspecified formulation MARIANA RAMOS MD [facility] 11-28-2021 influenza, injectabl e, quadrivalent, preservative free MD Jonathan ELMORE [facility] 11-28-2021 influenza, seasonal, injectable [facility] 09-16-2021 influenza, high dose seasonal, preservative-free; Translations: [Fluad Quadrivalent PF ] LEONA RIOS MD [facility] 08-27-2019 influenza, injectabl e, quadrivalent, preservative free; Translations: [Fluarix PF Quadrivalent ] BARBER CHUAERONAUT[employer] COMMISSION DIRECTOR [facility] 09-13-2017 influenza virus vaccine, unspecified formulation MARIANA RAMOS MD [facility] 09-19-2014 influenza virus vaccine, unspecified formulation MARIANA RAMOS MD [facility] Payers Date Payer Category Payer Self-pay [id number] 2022 Private Health Insurance [id number] 2022 Unknown [id number] 2022 Unknown [id number] 2022 Medicare [id number] 2022 Medicare [id number] 1950 Unknown [id number] 2.16.840.1.461907.3.579.2.6 27 1949 Unknown [id number] 2.16.840.1.068564.3.579.2.6 27 1949 Unknown [id number] 2.16.840.1.079372.3.579.2.6 27 1949 Unknown [id number] 2.16.840.1.791223.3.579.2.6 27 1949 Unknown [id number] 2.16.840.1.415423.3.579.2.6 27 1949 Unknown [id number] 2.16.840.1.155699.3.579.2.6 27 1949 Unknown [id number] 2.16.840.1.414692.3.579.2.6 27 1949 Unknown [id number] 2.16.840.1.293028.3.579.2.1 244 1949 Unknown [id number] 2.16.840.1.223057.3.579.2.1 245 1949 Unknown [id number] 2.16.840.1.236871.3.579.2.1 245 1949 Unknown [id number] 2.16.840.1.121382.3.579.2.1 245 1949 Unknown [id number] 2.16.840.1.826183.3.579.2.1 245 1949 Unknown [id number] 2.16.840.1.251675.3.579.2.1 245 1949 Unknown [id number] 2.16.840.1.012559.3.579.2.1 245 1950 Unknown [id number] 2.16.840.1.337359.3.579.2.1 245 Private Health Insurance [facility] HMO IN [facility] 18 [id number] Unknown Unknown [id number] Unknown [id number] 2.16.840.1.152596.3.579.2.4 62 Unknown [id number] 2.16.840.1.255662.3.579.2.4 62 Unknown [id number] 2.16.840.1.755190.3.579.2.4 62 Unknown [id number] 2.16.840.1.368760.3.579.2.4 62 Unknown [id number] 2.16.840.1.816242.3.579.2.4 62 Social History Date Type Detail Facility Start: 03-10-2020 End: 09-25-2023 Ex-smoker (finding) [facility] Start: 1950 Sex Assigned At Female A [facility] Start: 11-24-2021 End: 09-14-2023 Tobacco smoking status NHIS Unknown if ever smoked [facility] History of tobacco use Current smoker Uni [facility] Work Phone: History of tobacco use Cigarette Smoker [facility] Work Phone: Start: 09-25-2023 Tobacco use and exposure Smoke less tobacco non-user [facility] Work Phone: Start: 09-28-2023 End: 10-20-2023 Alcohol intake Ex-drinker (finding) [facility] Work Phone: Start: 09-25-2023 End: 10-31-2023 History of Social function [facility] Work Phone: Start: 09-25-2023 End: 10-31-2023 Alcohol Use Disorder Identification Test - Consumption [AUDIT-C] [facility] Work Phone: How often to you hav e a drink containing alcohol? Never [facility] Work Phone: How many standard dr inks containing alcohol do you have on a typical day? [facility] Work Phone: Start: 09-25-2023 Tobacco Comment Patient quit y ears ago [facility] Work Phone: Start: 1950 [facility] Start: 09-06-2023 End: 10-31-2023 Exposure to SARS-CoV-2 (event) Not sure [facility] NEGATED: Highlighted row - - MP-Univ Gastroenterology-Can [...] Status Patient Identi fied Identification band, Verbal [facility] 08-15-2023 Functional Status Maintained [facility] 02-25-2023 Functional status Ambulates;Chair [facility] Work Phone: 07-27-2022 Functional Status Room check performed [facility] 07-26-2022 Functional Status Yes [facility] 07-26-2022 Functional Status Min A 1 [facility] 07-26-2022 Functional Status None [facility] 07-26-2022 Functional Status [facility] 07-26-2022 Functional Status [facility] 07-25-2022 Functional Status Ambulation in Room [facility] 07-25-2022 Functional Status [facility] 07-25-2022 Functional Status [facility] 07-25-2022 Functional Status [facility] 07-25-2022 Functional Status Done [facility] 07-25-2022 Functional Status [facility] 07-25-2022 Functional Status [facility] 07-25-2022 Functional Status [facility] 07-24-2022 Functional Status [facility] 07-24-2022 Functional Status 100 [facility] 07-24-2022 Functional Status [facility] 07-23-2022 Functional Status [facility] 07-23-2022 Functional Status [facility] 07-22-2022 Functional Status [facility] 07-22-2022 Functional Status [facility] 07-21-2022 Functional Status [facility] 07-20-2022 Functional Status [facility] 07-20-2022 Functional Status [facility] 07-20-2022 Functional Status [facility] 07-19-2022 Functional Status [facility] 07-19-2022 Functional Status [facility] 07-19-2022 Functional Status [facility] 07-18-2022 Functional Status [facility] 07-18-2022 Functional Status [facility] 07-16-2022 Functional Status [facility] 07-16-2022 Functional Status [facility] 07-16-2022 Functional Status Special Call D evice Unable to use call device [facility] 07-16-2022 Functional Status [facility] 07-16-2022 Functional Status [facility] 07-15-2022 Functional Status [facility] 07-15-2022 Functional Status [facility] 07-13-2022 Functional Status Patient Identi fied Identification band [facility] 07-13-2022 Functional Status Sensory Deficits None A [facility] 07-11-2022 Functional Status Standard Safet y ID band on, Call device within reach, Bed in low position, Wheels locked, Upper/Half-Length side-rails up, Phone within reach, personal items within reach [facility] NEGATED: Highlighted row Functional performance Functional status health issues are not documented Disease [facility] [employer] Work Phone: Mental Status Date Assessment Result Facility 08-15-2023 Mental Status Orientation [address] 08-09-2023 Cognitive function Level Of Cons ciousness Awake;Alert;Appropriate ;Follows Commands [facility] Work Phone: 02-25-2023 Cognitive function Voice/Name [facility] Work Phone: 07-27-2022 Mental Status Oriented x 4, Follows simple commands [facility] 07-26-2022 Mental Status [facility] 07-26-2022 Mental Status [facility] 07-26-2022 Mental Status [facility] 07-11-2022 Mental Status Orientation [address] NEGATED: Highlighted row Cognitive function [Interpretation] Cognitive status health issues are not documented Disease [facility] Work Phone: Clinical Notes 09-15-2021 to 10-31-2023 Elida Villareal APRN-SILVINO - 10/31/2023 11:40 AM ESTPatient Wendy Sotelo MD - 10/17/2023 11:40 AM Marbella Blood RN - 09/28/2023 11:30 AM EST Note Date & Type Note Facility 10-31-2023 History of Present illness Narrative Subjective Chief Complaint: 72yo patient here for cardiovascular risk stratification prior to noncardiac surgery. HPI Presented as a transfer from [facility] with left lower quadrant abdominal pain suspicious [...] clinic for surgical planning. PMHx: HTN, Dysphagia, Stephens Catheter, HLD, COPD, Anemia, Vit B12 deficiency, DM II, Left Breast CA, Chronic Venous Insufficiency, RLE DVT, OA, GERD, ?VA, LUISA, HFrEF PSHx: Lumpectomy, Cholecystectomy, Appendectomy Presents from [facility] with nursing aid. Denies chest pain. Denies palpitations. SOB at rest, worse on exertion. Using 1-2L O2 via NC. Able to ambulate with wheeled walker, presents in wheelchair with stephens catheter. Denies orthopnea/PND. No CPAP. Denies ligthheadedness, [...] Skin is warm and dry. Genitourinary: Comments: Stephens catheter Neurological: Mental Status: Alert and oriented [...] IV Risk w/15% 30-day risk of , VA, or cardiac arrest. Order for BNP. documented in this encounter [facility] Work Phone: 10-31-2023 Instructions FREDY Olivares - [...] Continue all other medications as ordered. Call [phone] to schedule follow up with Dr. Rowell ([place]). documented in this encounter [facility] Work Phone: 10-17-2023 History of Present illness [...] past medical history of Anemia, Breast cancer (CMS/HCC) (2011), Colovesical fistula, COPD (chronic obstructive pulmonary disease) (CMS/HCC), Coronary atherosclerosis, Diabetes mellitus (CMS/HCC), Diverticulosis, GERD (gastroesophageal reflux disease), Hiatal hernia, Hypertension, Oxygen dependent, Personal history of irradiation, and Rheumatoid arthritis (CMS/HCC). Surgical History She has a past surgical [...] by mouth 2 times a day. 09/27/23 Nancy Treviño APRN-AERONAUTICS COMMISSION DIRECTOR bisacodyl (Dulcolax) 10 mg suppository Insert 1 [...] by mouth once daily at bedtime. Historical ProviderMD dicyclomine (Bentyl) 20 mg tablet Take 1 tablet (20 mg) by mouth every 8 hours if needed. For abdominal pain Historical ProviderMD estrogens, conjugated, (Premarin) vaginal cream Insert 1 applicatorful vaginally at bedtime every MON and THURS, for vaginal bleeding, for 1 month. End date 10/15/23. 10/15/23 Historical ProviderMD ferrous sulfate 325 (65 Fe) MG tablet [...] than 70 and non-responsive or NPO Historical Provider, L. acidophilus-L. rhamnosus (Probiotic) 15 billion cell capsule Take 1 capsule by mouth once daily. For 7 days ending 09/20/23. ([facility] Ultimate Jie Probiotic 15 BILLION per SNF list) 09/27/23 Nancy Treviño BICYCLE SERVICE TECHNICIAN-AERONAUTICS COMMISSION DIRECTOR magnesium hydroxide (Milk of Magnesia) 400 mg/5 mL suspension Take 30 mL by mouth once daily as needed for constipation. Historical ProviderMD metoprolol succinate XL (Toprol-XL) 100 mg 24 hr tablet Take 1 tablet (100 mg) by mouth once daily. Do not crush or chew. Do not start before September 28, 2023. 09/28/23 Nancy Treviño APRN-AERONAUTICS COMMISSION DIRECTOR ondansetron (Zofran) 4 mg tablet Take 1 tablet (4 mg) by mouth every 8 hours if needed for nausea. Historical ProviderMD pantoprazole (ProtoNix) 40 mg EC tablet Take 1 tablet (40 mg) by mouth once daily. Do not crush, chew, or split. Historical ProviderMD phenazopyridine (Pyridium) 100 mg tablet Take 1 tablet (100 mg) by mouth every 8 hours if needed. Historical Provider, potassium chloride CR 20 mEq ER tablet Take 1 tablet (20 mEq) by mouth once daily in the morning. Do not crush or chew. Historical Provider, sacubitriL-valsartan (Entresto) 24-26 mg tablet Take 0.5 tablets by mouth 2 times a day. 09/27/23 Nancy Treviño APRN-AERONAUTICS COMMISSION DIRECTOR sennosides-docusate sodium (Zarina-Colace) 8.6-50 mg tablet Take [...] Pre Op optimization. COMPARISON: None. ACCESSION NUMBER(S): [id number] ORDERING CLINICIAN: KANG JULIAN TECHNIQUE: Using multi-detector [...] Yair Pham 09/28/2023 11:26 AM Dictation workstation: [id number] Electrocardiogram, 12-lead PRN ACS symptoms Result Date: [...] Date: 09/25/2023 Interpreted By: Clint Thurman and Weaver Jakob STUDY: MR PELVIS W AND WO IV [...] colovesical colovaginal fistula. COMPARISON: None ACCESSION NUMBER(S): [id number] ORDERING CLINICIAN: KANG JULIAN TECHNIQUE: Multiplanar MRI [...] lumen. The bladder lumen is decompressed with Stephens catheter and balloon in place, distinct from [...] Cristina MD. This study was interpreted at [facility], [place], [place]. MACRO: None Signed by: Clint Laura Woods 09/25/2023 3:47 PM Dictation workstation: [id number] Transthoracic Echo (TTE) Complete Result Date: 09/20/2023 [facility]3], [address] [place] [address] and TRANSTHORACIC ECHOCARDIOGRAM REPORT Patient Name: POLI VALERIY Reading Physician: [id number] Kandi Roberts MD Study Date: 09/20/2023 Ordering Provider: [id number] VARSHA SOTELO MRN/PID: [id number] Fellow: Nurse: Mare Higgins Date of /Age: 12 1950 Waterproofing Mixer: Muna Clinton RDCS years Gender: F Additional Staff: Height: 165.10 cm Admit Date: 09/15/2023 Weight: 74.84 kg Admission Status: Inpatient - Routine BSA: 1.82 m2 Department Location: [facility] Non Invasive Blood Pressure: 126 /75 mmHg Study Type: TRANSTHORACIC ECHO (TTE) COMPLETE Diagnosis/ICD: Encounter for preprocedural cardiovascular examination-Z01.810 CPT Code: Echo Complete w Full Doppler-[id number] Patient History: Pertinent History: Breast cancer, HTN, [...] LA Area A2C: 21.1 cm2 LA [place] A4C: 5.5 cm LA [place] A2C: 5.6 cm AORTA MEASUREMENTS: Normal Ranges: [...] 1.0 m/s (0.6-0.9m/s) PV Max P.0 mmHg [id number] Kandi Roberts MD Electronically signed on 09/20/2023 at 4:04:20 PM Final US abdomen limited liver Result Date: 09/20/2023 Interpreted By: Steven Chacon and Kim Sheikh STUDY: US ABDOMEN LIMITED LIVER; [facility] US ABDOMINAL/PELVIC DUPLEX COMPLETE; 09/19/2023 6:30 pm INDICATION: 72 y/o F with Signs/Symptoms:Throbocytopenia workup; Signs/Symptoms:per doctor request. COMPARISON: None. ACCESSION NUMBER(S): [id number]; [id number] ORDERING CLINICIAN: KANG JULIAN TECHNIQUE: Multiple images of the right upper quadrant were obtained. Gates scale, color Doppler and spectral Doppler waveform analysis was performed. This examination was interpreted at [facility]. FINDINGS: The liver measures 22.6 cm and [...] as stated. This study was interpreted at [place], [place]. MACRO: None Signed by: Steven Chacon 09/20/2023 5:44 AM Dictation workstation: [id number] Vascular US abdomen/pelvis duplex complete Result Date: 09/20/2023 Interpreted By: Steven Chacon, and Kim Sheikh STUDY: [facility] ABDOMINAL/PELVIC DUPLEX COMPLETE; 09/19/2023 6:30 pm INDICATION: 72 y/o F with Signs/Symptoms:Throbocytopenia workup; Signs/Symptoms:per doctor request. COMPARISON: None. ACCESSION NUMBER(S): [id number]; [id number] ORDERING CLINICIAN: KANG JULIAN TECHNIQUE: Multiple images of the right upper quadrant were obtained. Gates scale, color Doppler and spectral Doppler waveform analysis was performed. This examination was interpreted at [facility]. FINDINGS: The liver measures 22.6 cm and [...] as stated. This study was interpreted at [place], [place]. MACRO: None Signed by: Steven Chacon 09/20/2023 5:44 AM Dictation workstation: [id number] CT head wo IV contrast Result Date: 09/19/2023 Interpreted By: Susy Canales, STUDY: CT HEAD WO IV CONTRAST; 09/19/2023 3:43 pm INDICATION: Signs/Symptoms:R/o subdural hematoma, thrombocytopenia workup (fall several weeks ago). COMPARISON: None. ACCESSION NUMBER(S): [id number] ORDERING CLINICIAN: KANG JULIAN TECHNIQUE: Axial CT [...] Susy Canales 09/19/2023 4:06 PM Dictation workstation: [id number] XR chest 1 view Result Date: 09/19/2023 Interpreted By: Delfin Menezes and [place] Lesley STUDY: XR CHEST 1 VIEW; 09/19/2023 8:46 am INDICATION: Signs/Symptoms:copd on oxygen. COMPARISON: Outside hospital CT chest 03/20/2014 ACCESSION NUMBER(S): [id number] ORDERING CLINICIAN: RIMA APPLE FINDINGS: Single AP [...] as stated. This study was interpreted at [facility], [place], [place]. MACRO: None Signed by: Delfin Menezes 09/19/2023 9:36 AM Dictation workstation: [id number] Labs: Lab Results Component Value Date BILIDIR [...] this encounter 10/23/2023 documented in this encounter [facility] Work Phone: 09-28-2023 Nurse Note Discharge paper work sent with patient, along with belongings documented in this encounter [facility] Work Phone: 09-28-2023 History of Present illness Narrative Poli Ramirez is a 72 y.o. female on day 13 of admission presenting with Colovaginal fistula. SW briefly met with pt about discharge needs. Pt lives at the [facility] in [place], [place]. Pt can discharge in the next few days. Facility notified through [facility]. SW will follow and assist as needed. SYDNEY Seth. 09/23/2023 LILY spoke to Caroline ([phone]) at the [facility] about pt's return. The facility [...] Seth. 09/26/2023 LILY spoke to Caroline from [facility] about pt's care. Pt has a cardiac scan today. ADOD is tomorrow or Tuesday. Updated notes sent to pt's facility. SYDNEY Seth. 09/27/2023 Pt set for discharge today. Neg covid test (taken this morning) sent to [facility]. Transport requested for 1530. SW [...] 13 of admission presenting with Colovaginal fistula. SW briefly met with pt about discharge needs. Pt lives at the [facility] in [place], [place]. Pt can discharge in the next few days. Facility notified through [facility]. SW will follow and assist as needed. SYDNEY Seth. 09/23/2023 LILY spoke to Caroline ([phone]) at the [facility] about pt's return. The facility [...] Seth. 09/26/2023 LILY spoke to Caroline from [facility] about pt's care. Pt has a cardiac scan today. ADOD is tomorrow or Tuesday. Updated notes sent to pt's facility. SYDNEY Seth. 09/27/2023 Pt set for discharge today. Neg covid test (taken this morning) sent to [facility]. Transport requested for 1530. SW will let the facility know when transport is confirmed. SYDNEY Seth. 09/27/2023 Transport set for 1730 with [facility]. Care team and facility notified. SYDNEY Seth. 09/28/2023 [facility] pushed transport time to 1030p and then attempted pickup at 3a this morning. Pt's residence could not accept that late. Transport will be rescheduled for this morning. SYDNEY Seth. [facility] HEART FAILURE PROGRESS NOTE Poli Ramirez/[id number] Admit Date: 09/15/2023 Hospital Length of Stay: [...] daily as needed for constipation. [DISCONTINUED] HYDROcodone-acetaminophen ([place]) 5-325 mg tablet Take 1 tablet by mouth every 6 hours if needed (moderate to severe pain). [DISCONTINUED] L. acidophilus-L. rhamnosus (Probiotic) 15 billion cell capsule Take 1 capsule by mouth once daily. For 7 days ending 09/20/23. ([facility] Jie Probiotic 15 BILLION per [facility] list) ASSESSMENT AND PLAN: #Newly diagnosed cardiomyopathy, [...] Heart Failure Fellow Associated attestation - Susy Madrigal, DO - 09/27/2023 5:15 PM EST 72F [...] about discharge needs. Pt lives at the [facility] in [place], [place]. Pt can discharge in the next few days. Facility notified through [facility]. SW will follow and assist as needed. SYDNEY Seth. 09/23/2023 LILY spoke to Caroline ([phone]) at the [facility] about pt's return. The facility [...] Seth. 09/26/2023 LILY spoke to Caroline from [facility] about pt's care. Pt has a cardiac scan today. ADOD is tomorrow or Tuesday. Updated notes sent to pt's facility. SYDNEY Seth. 09/27/2023 Pt set for discharge today. Neg covid test (taken this morning) sent to [facility]. Transport requested for 1530. SW will let the facility know when transport is confirmed. SYDNEY Seth. 09/27/2023 Transport set for 1730 with [facility]. Care team and facility notified. SYDNEY Seth. Poli Ramirez is a 72 y.o. female on day 12 of admission presenting with Colovaginal fistula. SW briefly met with pt about discharge needs. Pt lives at the [facility] in [place], [place]. Pt can discharge in the next few days. Facility notified through [facility]. SW will follow and assist as needed. SYDNEY Seth. 09/23/2023 LILY spoke to Caroline ([phone]) at the [facility] about pt's return. The facility [...] Seth. 09/26/2023 LILY spoke to Caroline from [facility] about pt's care. Pt has a cardiac scan today. ADOD is tomorrow or Tuesday. Updated notes sent to pt's facility. SYDNEY Steh. 09/27/2023 Pt set for discharge today. Neg covid test (taken this morning) sent to [facility]. Transport requested for 1530. SW [...] Penicillin Trimethoprim/Sulfamethoxazole Vancomycin 09/20/23 Urine from Indwelling (Stephens) Catheter Enterococcus faecium R R SDD R [...] 09/16- Flagyl 09/16- Ntf 09/22- Assessment/Plan Poli Rmairez is a 72 y.o. female presenting with [...] of occurrence. 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 Additionally, would recommend [...] to be discharged to SNF shortly with stephens and will return to see Colorectal Surgery [...] if further questions. ID team A pager [phone]. For new consults, contact pager [phone]. Patient staffed with ID attendant Dr Agarwal who agrees with plan as above Karina Dennison MD MPH I reviewed the resident/fellow's documentation [...] of Assistance 1: Minimum assistance Outcome Measures: [facility] Basic Mobility Turning from your back to [...] RW (Progressing) Start: 09/22/23 Expected End: 10/06/23 [facility] HEART FAILURE PROGRESS NOTE Poli Ramirez/[id number] Admit Date: 09/15/2023 Hospital Length of Stay: [...] Results from last 7 days Lab Units 09/26/2347 09/24/2348 09/23/23 0716 09/22/23 0832 09/21/2337 09/20/23 0644 SODIUM mmol/L 147* 146* 144 [...] than 70 and non-responsive or NPO HYDROcodone-acetaminophen ([place]) 5-325 mg tablet Take 1 tablet by [...] about discharge needs. Pt lives at the [facility] in [place], [place]. Pt can discharge in the next few days. Facility notified through [facility]. SW will follow and assist as needed. SYDNEY Seth. 09/23/2023 LILY spoke to Caroline ([phone]) at the [facility] about pt's return. The facility [...] Seth. 09/26/2023 LILY spoke to Caroline from [facility] about pt's care. Pt has a cardiac scan today. ADOD is tomorrow or Tuesday. Updated notes sent to pt's facility. SYDNEY Seth. Poli Ramirez is a 72 y.o. female on day 11 of admission presenting with Colovaginal fistula. LILY briefly met with pt about discharge needs. Pt lives at the [facility] in [place], [place]. Pt can discharge in the next few days. Facility notified through [facility]. SW will follow and assist as needed. SYDNEY Seth. 09/23/2023 LILY spoke to Caroline ([phone]) at the [facility] about pt's return. The facility [...] appendectomy who presented as a transfer from [facility] due to left lower quadrant abdominal pain suspicious for colovesical/colovaginal fistula and diverticulitis on CT. Subjective No acute events overnight. Pain well controlled Nausea well controlled, has not vomited Having bowel movements Voiding via stephens catheter Has not ambulated Objective Physical Exam: Gen: in no apparent distress Resp: has a normal respiratory effort on 2L NC Abd: Abdomen is soft, not distended, mildly tender in LLQ. Skin: Warm and dry Extremities: Warm and dry, no edema. Anorectal: Deferred. : stephens with dark urine I/O last 3 completed [...] DM2, who presented as a transfer from [facility] due to left lower quadrant abdominal pain suspicious for colovesical/colovaginal fistula and diverticulitis on CT. Physical exam and imaging is suspicious for fistula. Ucx: e.fecium VRE, ID consulted. Plan: Neuro: Continue current pain regimen with IV pain meds (diaudid PRN) Resp: Home O2 2L, incentive spirometer Card: metop 50 q8, holding losartan/spironolactone; coronary CTA today and follow-up perioperative medicine recommendations FEN: HLIV GI: NPO for coronary CTA; resume carb controlled diet with glucerna shakes TID; weekly LFTs, prealbumin; PO PPI : Maintain stephens for decompression; PULP SCREEN OPERATOR ONC - likely no fistula to vagina [...] Dr. Subramanian. Rasheed Brandt MD Colorectal Surgery [place] Service Pager [phone] Poli Ramirez is a 72 y.o. female [...] 8 of admission presenting with Colovaginal fistula. LILY briefly met with pt about discharge needs. Pt lives at the [facility] in [place], [place]. Pt can discharge in the next few days. Facility notified through [facility]. SW will follow and assist as needed. Susy Blunt [facility], SERVICE ATTENDANT. 09/23/2023 LILY spoke to Caroline ([phone]) at the [facility] about pt's return. The facility does not accept weekend discharges so pt will discharge back to facility on 09/26/2023. Pt will also need a negative covid test, taken same day. Care team notified. SW will arrange transport for midday 09/26. SW will follow and assist. SYDNEY Seth. [facility] HEART FAILURE PROGRESS NOTE Poli Ramirez/[id number] Admit Date: 09/15/2023 Hospital Length of Stay: 7 Primary Service: Colorectal surgery INTERVAL EVENTS / PERTINENT ROS: Records reviewed from [place]. Patient is being planned for surgery for [...] last 7 days Lab Units 09/22/23 0832 09/21/2337 09/20/2344 09/19/23 1021 09/18/23 0543 09/17/23 0551 09/16/23 [...] last 7 days Lab Units 09/22/23 0832 09/21/2337 09/20/2344 09/19/23 1021 09/18/23 0543 09/17/23 0551 09/16/23 0654 09/15/234 WBC AUTO x10*3/uL 4.7 5.0 4.3* 4.2* 4.2* 3.7* 3.4* 3.5* HEMOGLOBIN g/dL 8.0* 8.0* 8.3* 8.4* 8.0* 8.2* 8.5* 7.9* HEMATOCRIT % 27.9* 25.6* 27.7* 28.2* 26.9* 27.0* 29.3* 27.8* PLATELETS AUTO x10*3/uL 99* 88* 92* 90* 91* 88* 93* 123* MCV fL 104* 98 102* 104* 102* 101* 103* 105* COAG: Results from last 7 days Lab Units 09/19/23 1021 09/15/235 INR 1.1 1.0 ABO: No results found [...] applicatorful vaginally at bedtime every TUE and THURS, for vaginal bleeding, for 1 [...] than 70 and non-responsive or NPO HYDROcodone-acetaminophen ([place]) 5-325 mg tablet Take 1 tablet by mouth every 6 hours if needed (moderate to severe pain). [] L. acidophilus-L. rhamnosus (Probiotic) 15 billion cell capsule Take 1 capsule by mouth once daily. For 7 days ending 09/20/23. ([facility] Ultimate Jie Probiotic 15 BILLION per [facility] list) lisinopril 5 mg tablet Take 0.5 [...] Discussed with HF attending, Dr. Antoni Barajas, Joevanny Jones DO PGY-4 Advanced Heart Failure Fellow [...] Time Calculation Start Time: 951 Stop Time: 1003 Time Calculation (min): 12 min Assessment/Plan PT [...] Home Living: Home Living Type of Home: [facility] Compl[facility] Care facility Home Adaptive Equipment: Wheelchair-manual, Walker rolling or standard Home Layout: One level Bathroom Shower/Tub: Walk-in shower Bathroom Toilet: Handicapped height Prior Level of Function: Prior Function Per Pt/Caregiver Report Level of Cameron: Needs assistance with ADLs, Needs assistance with [...] extension and ankle DF 4/5) Outcome Measures: [facility] Basic Mobility Turning from your back to [...] about discharge needs. Pt lives at the [facility] in [place], [place]. Pt can discharge in the next few days. Facility notified through [facility]. SW will follow and assist as needed. Susy CORTEZ SERVICE ATTENDANT. Occupational Therapy Evaluation/Treatment Patient Name: Poli Ramirez [...] intensity level of continued care (Return to skilled nursing with Low intensity therapy services) OT Recommended [...] Functional Limits Home Living: Type of Home: [facility] facility Lives With: Alone Home Adaptive Equipment: Wheelchair-manual, Walker rolling or standard Home Layout: One level Home Access: No concerns Bathroom Shower/Tub: Walk-in shower Bathroom Toilet: Handicapped height Bathroom Equipment: Grab bars in shower, Built-in shower seat, Grab bars around toilet Home Living Comments: Living in skilled nursing Prior Function: Level of Cameron: Needs assistance with ADLs, Needs assistance with [...] Toileting Comments: Min A for transfer to BSC, education on safe positioning provided. Min A [...] LUE LUE: Within Functional Limits Outcome Measures: [facility] Daily Activity Putting on and taking off [...] (Progressing) Start: 09/22/23 Expected End: 10/13/23 COREY DALE, OT Images from the original note were [...] appendectomy who presented as a transfer from [facility] due to left lower quadrant abdominal pain suspicious for colovesical/colovaginal fistula and diverticulitis on CT. Subjective MRI showed diverticulits, abscess w/ fistula, fibroids HF rec medical therapy and cath prior to surgery; cath Tuesday- NPO @midnight Pain well controlled Nausea none , has not vomited Passing gas Voiding via stephens catheter, mucus/sediment from catheter OOB, ambulating Objective Physical Exam: Gen: in no apparent distress Resp: has a normal respiratory effort and on home 2L O2 Abd: Abdomen is soft and mildly tender to palpation in LLQ . nondistended : stephens in place, draining sediment/ mucus, clear light [...] pancytopenia who presented as a transfer from [facility] due to left lower quadrant abdominal pain [...] cath (09/23) : Monitor UOP and maintain stephens Abrasive Grader onc consulted for vaginal bleeding, appreciate recs Ucx: e.fecium, awaiting sensitivities Heme/ID: Daily labs. Continue rocephin/flagyl Ppy: Lovenox 40mg daily, SCDs Special: Okay for shower Dispo: Continue care on RNF. Patient seen by and plans discussed with staff, Dr. Sotelo. Kang Julian MD Colorectal Surgery [place] Service Pager [phone] Images from the original note were not [...] appendectomy who presented as a transfer from [facility] due to left lower quadrant abdominal pain suspicious for colovesical/colovaginal fistula and diverticulitis on CT. Subjective Abrasive Grader Onc on board for vaginal bleeding, awaiting MRI and endometrial biopsy Ucx today given increasing sediment in stephens- pending Poor heart function on echo, HF team consulted Pain well controlled Nausea none , has not vomited Passing gas Voiding via stephens catheter, increasing sediment from catheter OOB, ambulating [...] pancytopenia who presented as a transfer from [facility] due to left lower quadrant abdominal pain [...] MRI today : Monitor UOP and maintain stephens Abrasive Grader onc consulted for vaginal bleeding, appreciate recs MRI pelvis ordered Ucx Heme/ID: Daily labs. Continue rocephin/flagyl Ppy: Lovenox 40mg daily, SCDs Special: Okay for shower Dispo: Continue care on RNF. Patient seen by and plans discussed with staff, Dr. Sotelo. Jesus Newman, DO Colorectal Surgery [place] Service Pager [phone] 09/20/23 9770 Discharge Planning Living Arrangements Other (Comment) (FPC) Support Systems Children Type of Residence FPC/residential care Patient expects to be discharged to: Return to skilled nursing- [facility] in [place], [place] Does the patient need discharge transport [...] for a colovesical/colovaginal fistuala. She resides at [facility] in [place], [place]. She would like to return there [...] appendectomy who presented as a transfer from [facility] due to left lower quadrant abdominal pain suspicious for colovesical/colovaginal fistula and diverticulitis on CT. Subjective Abrasive Grader Onc on board for vaginal bleeding, awaiting MRI and endometrial biopsy Ucx today given increasing sediment in stephens Perioperative medicine rec multiple studies for thrombocytopenia, pre-op workup- results unremarkable thus far Pain well controlled Nausea none , has not vomited Passing gas Voiding via stephens catheter, increasing sediment from catheter OOB, ambulating [...] pancytopenia who presented as a transfer from [facility] due to left lower quadrant abdominal pain [...] LFTs, prealbumin : Monitor UOP and maintain stephens Abrasive Grader onc consulted for vaginal bleeding, appreciate recs MRI pelvis ordered Ucx today Heme/ID: Daily labs. Continue rocephin/flagyl Ppy: Lovenox 40mg daily, SCDs Special: Okay for shower Dispo: Continue care on RNF. Patient seen by and plans discussed with staff, Dr. Sotelo. Kang Julian MD Colorectal Surgery [place] Service Pager [phone] Images from the original note were not [...] appendectomy who presented as a transfer from [facility] due to left lower quadrant abdominal pain suspicious for colovesical/colovaginal fistula and diverticulitis on CT. Subjective No acute events overnight. Pain well controlled Nausea none , has not vomited Passing gas Voiding via stephens catheter OOB, ambulating Objective Physical Exam: Gen: [...] pancytopenia who presented as a transfer from [facility] due to left lower quadrant abdominal pain [...] LFTs, prealbumin : Monitor UOP and maintain stephens Heme/ID: Daily labs. Continue broad-spectrum antibiotics. Coags tomorrow Ppy: Lovenox 40mg daily, SCDs Special: Okay for shower Dispo: Continue care on RNF. Patient seen by and plans discussed with staff, Dr. Sotelo. Kang Julian MD Colorectal Surgery [place] Service Pager [phone] Images from the original note were not [...] appendectomy who presented as a transfer from [facility] due to left lower quadrant abdominal pain suspicious for colovesical/colovaginal fistula and diverticulitis on CT. Subjective No acute events overnight. Pain well controlled Nausea none , has not vomited Passing gas Voiding via stephens catheter OOB, ambulating Objective Physical Exam: Gen: in no apparent distress Resp: has a normal respiratory effort and on home 2L O2 Abd: Abdomen is soft and mildly tender to palpation in LLQ . nondistended Skin: Warm and dry Extremities: Warm and dry, no edema. I/O last 3 completed shifts: In: 2484.2 (33.2 mL/kg) [P.O.:300; I.V.:2084.2 (27.8 mL/kg); IV Piggyback:100] Out: 5 (27.7 mL/kg) [Urine:2075 (0.8 mL/kg/hr)] Weight: 74.8 kg I/O this [...] pancytopenia who presented as a transfer from [facility] due to left lower quadrant abdominal pain [...] LFTs, prealbumin : Monitor UOP and maintain stephens Heme/ID: Daily labs. Continue broad-spectrum antibiotics. Coags tomorrow Ppy: Lovenox 40mg daily, SCDs Special: Okay for shower Dispo: Continue care on RNF. Patient seen by and plans discussed with staff, Dr. Sotelo. Fran Brenner MD Colorectal Surgery [place] [facility] Pager [phone] Images from the original note were not [...] appendectomy who presented as a transfer from [facility] due to left lower quadrant abdominal pain suspicious for colovesical/colovaginal fistula and diverticulitis on CT. Subjective No acute events overnight. Pain well controlled Nausea none , has not vomited Passing gas Voiding via stephens catheter Has not ambulated Objective Physical Exam: [...] pancytopenia who presented as a transfer from [facility] due to left lower quadrant abdominal pain suspicious for colovesical/colovaginal fistula and diverticulitis on CT. Physical exam and imaging (review radiology) is suspicious for fistula. Will work on medical optimization and acquiring outside hospital colonoscopy results for further work-up. Will engage Dr. Apple for optimization, appreciate [facility]. Plan: Neuro: Continue current pain regimen with IV pain meds (diaudid PRN) Resp: Home O2 2L, ICS Card: continue home coreg, holding lisinopril and lasix FEN: HLIV GI: Carb controlled diet with sliding scale insulin, CEA normal : Monitor UOP and maintain stephens Heme/ID: Daily labs. Continue broad-spectrum antibiotics. Ppy: Lovenox 40mg daily, SCDs Dispo: Continue care on RNF. Patient seen and plans discussed with staff, Dr. Sotelo. Michelle Hendrickson MD Colorectal Surgery [place] Service Pager [phone] Pharmacy Medication History Review Poli Ramirez is a 72 y.o. female admitted for Colovaginal fistula. LEASE OUT WORKER Medication List has been [facility] as [facility] 09/14/23, 21:31:04 ET. The list below reflects the updated LEASE OUT WORKER list. Please review each medication in order [...] than 70 and non-responsive or NPO HYDROcodone-acetaminophen ([place]) 5-325 mg tablet Take 1 tablet by [...] Unknown Zanaflex [tizanidine] Not Specified Unknown Derrick Arriola PharmD, [facility] Transitions of Care Pharmacist Medication reconciliation complete Please reach out via [employer] Secure Chat for questions, or if no response call [employer] or [employer]. [facility] documented in this encounter [facility] Work Phone: 09-27-2023 Hospital course Narrative Discharge [...] appendectomy who presented as a transfer from [facility] with left lower quadrant abdominal pain suspicious [...] guarding or rebound tenderness Genitourinary: Comments: Indwelling stephens to gravity with yellow urine and sediment in stephens Musculoskeletal: General: Normal range of motion. Skin: [...] HYDROcodone-acetaminophen 5-325 mg tablet; Commonly known as: [place]; Take 1 tablet by mouth every 6 [...] once daily. For 7 days ending 09/20/23. ([facility] Jie Probiotic 15 BILLION per SNF list) sennosides-docusate sodium 8.6-50 mg tablet; Commonly known as: Zairna-Colace simvastatin 10 mg tablet; Commonly known as: [...] appointments. FREDY Holcomb documented in this encounter [facility] Work Phone: 09-27-2023 Miscellaneous Notes Poli Ramirez is a 72 year old female with a past medical history significant for hypertension on Lasix and lisinopril, hyperlipidemia, COPD (on 2 L nasal cannula at home), type 2 diabetes (not on insulin at home), left breast cancer status post lumpectomy, pancytopenia, open cholecystectomy and appendectomy who presented as a transfer from [facility] with left lower quadrant abdominal pain suspicious [...] Lancaster MD MPH Gynecologic Oncology PGY7 Pager: [phone], Team Phone: [phone] Problem: Pain Goal: My pain/discomfort is manageable [...] in place. Pt turning with verbal reminders. Stephens catheter in place. Tolerating mIVFs and IV [...] urinary discomfort A/O x4, VSS, 2L NC, stephens in place with pink-cloudy urine output. Pt c/o urinary discomfort and burning. Loose BM today, able to get to bedside commode with assistance. CT head done. Pt refusing MRI of pelvis, notified. Pt is to have liver U/S today, has been NPO since 1200, plan for U/S around [id number]. PRN pain medication given per orders. Patient requesting lidocaine gel for vaginal area for pain at stephens site, MD notified. All needs met, WCTM. Please see media for colonoscopy note from 08/15/23 at [facility]. Patient transitioned to the colorectal surgery service. Acute care surgery will sign off at this time. Thank you for allowing us to take care of Ms. Ramirez and we wish the best for her. Appreciate colorectal surgery care. Og Luis MD PGY-1 General Surgery Acute Care Surgery [phone] [facility] Chat Preferred Discussed terms of patient's DNR [...] but that he is currently in a skilled nursing here in [place]. Also states that she has a daughter, Jocy Ramirez, who can make decisions for her. Does not have Jocy's number at this time, but states that she would be okay with surgical team calling her to let her know she is in the hospital at [facility]. Staci Degroot MD PGY-3 General Surgery documented in this encounter [facility] Work Phone: 09-23-2023 Consult note Associated Order [...] had a colonoscopy several weeks ago at [facility] for " work-up of the abdominal [...] colonic-vaginal vs colonic vesicular fistula. Transferred to [facility] 09/16 for surgical eval. Underwent MRI 09/21 that support abscess near baldder, bladder inflammation and colovesicular fistula. Currently getting cardiac clearance for c/f low EF. Pt has been since admission on Ctx, flagyl (09/16-date) . However in past day Ctx stopped as 11/7 Ucx sent grew VRE-faecium S only to [...] than 70 and non-responsive or NPO HYDROcodone-acetaminophen ([place]) 5-325 mg tablet Take 1 tablet by mouth every 6 hours if needed (moderate to severe pain). [] L. acidophilus-L. rhamnosus (Probiotic) 15 billion cell capsule Take 1 capsule by mouth once daily. For 7 days ending 09/20/23. ([facility] Ultimate Jie Probiotic 15 BILLION per [facility] list) lisinopril 5 mg tablet Take 0.5 [...] Results from last 72 hours Lab Units 09/23/2371509/22/23 0809/21/23 0637 WBC AUTO x10*3/uL 4.9 4.7 5.0 HEMOGLOBIN g/dL 7.7* 8.0* 8.0* HEMATOCRIT % 26.9* 27.9* 25.6* PLATELETS AUTO x10*3/uL 93* 99* 88* Results from last 72 hours Lab Units 09/23/23 0709/22/23 0809/21/23 0637 SODIUM mmol/L 144 146* 146* POTASSIUM [...] Results from last 72 hours Lab Units 09/23/2371509/22/23 0809/21/2337 ALBUMIN g/dL 2.9* 2.7* 2.7* Estimated Creatinine [...] Penicillin Trimethoprim/Sulfamethoxazole Vancomycin 09/20/23 Urine from Indwelling (Stephens) Catheter Enterococcus faecium R R SDD R [...] is a 72 y.o. female presenting with [facility] diverticulitis admitted 09/16 from OSH for surgical [...] of occurrence. 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 Additionally, would recommend [...] if further questions. ID team A pager [phone]. For new consults, contact pager [phone]. Patient staffed with ID attendant Dr Agarwal [...] s/p lumpectomy, pancytopenia. She originally presented to [facility] with LLQ abdominal pain over the last 4 months. At [facility] a CT scan revealed chronic inflammation with bladder wall thickening, large diverticula with stool in sigmoid colon, and a likely benign mass in the spleen (present since previous scan in 2013). The scan was not able to exclude colovesical or colovaginal fistula. Patient had a colonoscopy several weeks ago at [facility] for work-up of the abdominal pain which was significant for a reported "obstructing mass". Per patient she needed surgery at this time, however, she was not medically optimized, so her surgeon "refused" to perform the operation. She denies previous cardiac history, chest pain, or dyspnea. During pre operative evaluation at [facility], she had a routine [...] [P.O.:600; I.V.:166 (2.2 mL/kg); IV Piggyback:150] Out: 192 (25.7 mL/kg) [Urine:1925 (0.7 mL/kg/hr)] Weight: 74.8 [...] than 70 and non-responsive or NPO HYDROcodone-acetaminophen ([place]) 5-325 mg tablet 1 tablet, oral, Every [...] was refused from a surgical intervention at [facility] which sounds like it may have been due to her heart disease. 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 Still being worked up by primary team, no surgery planned as of yet #Hypertension #Hyperlipidemia #COPD on 2L chronically Recommendations: Please obtain her records from [facility] for any echos, or cardiac consultations/testing. Start [...] and anemia who is a transferred from [facility] with left lower quadrant abdominal pain and acute vaginal bleeding, with 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 AUB -postmenopausal bleeding, pelvic exam limited but unremarkable, given recent weight loss and poor appetite, symptoms c/f AUB-M - MRI ordered by primary team, will follow up and assess for endometrial biopsy - No active bleeding noted at bedside, recommend pad counts (notify Abrasive Grader Onc team if >2pad/hr over 2hrs) Colovesical/Colovaginal [...] vaginal bleeding. Pelvic MRI without evidence of PULP SCREEN OPERATOR cancer. She should have an endometrial biopsy. If she is having surgery this hospitalization will perform while hospitalized, otherwise would do as an outpatient. We will be available if needed for surgery. Eric Osorio MD Subjective 72 y.o with h/o left breast cancer, HTN, COPD (on 2L NC at home), T2DM, chronic thrombocytopenia and anemia who is a transferred from [facility] for left lower quadrant abdominal pain with [...] than 70 and non-responsive or NPO HYDROcodone-acetaminophen ([place]) 5-325 mg tablet Take 1 tablet by [...] tenderness , active bowel sounds noted : stephens catheter in place, pelvic exam limited due [...] found for: "LACTATE" documented in this encounter [facility] Work Phone: 09-22-2023 History and physical note [...] s/p lumpectomy, pancytopenia. She originally presented to [facility] with LLQ abdominal pain over the last 4 months. At [facility] a CT scan revealed chronic inflammation with bladder wall thickening, large diverticula with stool in sigmoid colon, and a likely benign mass in the spleen (present since previous scan in 2013). The scan was not able to exclude colovesical or colovaginal fistula. Patient had a colonoscopy several weeks ago at [facility] for work-up of the abdominal pain which was significant for a reported "obstructing mass". Per patient she needed surgery at this time, however, she was not medically optimized, so her surgeon "refused" to perform the operation. She denies previous cardiac history, chest pain, or dyspnea. During pre operative evaluation at [facility], she had a routine [...] [P.O.:600; I.V.:166 (2.2 mL/kg); IV Piggyback:150] Out: 1924 (25.7 mL/kg) [Urine:1925 (0.7 mL/kg/hr)] Weight: 74.8 [...] than 70 and non-responsive or NPO HYDROcodone-acetaminophen ([place]) 5-325 mg tablet 1 tablet, oral, Every [...] was refused from a surgical intervention at [facility] which sounds like it may have been due to her heart disease. 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 Still being worked up by primary team, no surgery planned as of yet #Hypertension #Hyperlipidemia #COPD on 2L chronically Recommendations: Please obtain her records from [facility] for any echos, or cardiac consultations/testing. Start [...] included. Colorectal Surgery Consult H&P Poli Ramirez [phone] Consults Reason for admission: We were consulted [...] appendectomy who presents as a transfer from [facility] due to left lower quadrant abdominal pain suspicious for colovesical/colovaginal fistula and diverticulitis on CT. Patient reports left lower quadrant abdominal pain for the last 4 months. Pain worsened 2 nights ago at which time she presented to [facility]. Patient also reports 4 weeks ago she began having vaginal bloody discharge and dark brown/red urine with dysuria. Patient denies any difficulty urinating however she endorses the vaginal discharge/urine has a foul odor to it. Patient had a colonoscopy several weeks ago at [facility] for work-up of the abdominal pain [...] 10 years that was reportedly normal. At [facility] hospital a CT scan revealed chronic inflammation with [...] pancytopenia who presents as a transfer from [facility] due to left lower quadrant abdominal pain suspicious for colovesical/colovaginal fistula and diverticulitis on CT. Physical exam and imaging (review radiology) is suspicious for fistula. Will work on medical optimization and acquiring outside hospital colonoscopy results for further work-up. Will engage Dr. Apple for optimization, appreciate rec. Neuro: Continue current pain regimen with IV pain meds (diaudid PRN) Resp: NC 2L, ICS Card: continue home coreg, holding lisinopril and lasix FEN: IVF @ 50 LR GI: Soft diet plus Glucerna for protein calorie malnutrition Endo: DM sliding scale insulin : Stephens in place Heme/ID: AM labs Ppy: Lovenox 40mg daily, SCDs Dispo: Continue care on RNF. Plans discussed with staff, Dr. Deepak Brenner MD, MD Colorectal Surgery [facility] Service Pager [phone] [facility] SUR[facility]ERY - HISTORY AND PHYSICAL / CONSULT Patient Name: Poli Ramirez Admit Date: [id number] : 1950 AGE: 72 y.o. GENDER: female TODAY'S ASSESSMENT AND PLAN OF CARE: NPO w/ IVF IV ceftriaxone and metronidazole Pain and nausea control as needed Interdisciplinary care with Colorectal Surgery for further workup including imaging and/or colonoscopy Gina Rush MD [facility] [phone] CHIEF COMPLAINT/REASON FOR CONSULT: Poli Ramirez is a 72 yo F, medical history significant for HTN, HLD, COPD (on 2L NC at home), T2DM, left breast cancer (ER positive, T1c, N0, cM0) s/p left lumpectomy, pancytopenia, and open cholecystectomy, appendectomy, who was transferred from [facility] for an intraabdominal abscess, diverticulitis, and [...] a colonoscopy a few weeks ago at [facility] but was told they did not reach the ileocecal valve due to an obstructing mass and no biopsies were taken. She adds she was referred to a surgeon at [facility] but says "the doctor refused surgery because [...] chemoprophylaxis, full code. documented in this encounter [facility] Work Phone: 09-15-2023 Discharge summary Note Date/Time September 15, 2023 1:09am [facility] Medical Records Department [address] [place] [address] Emergency Department Summary 09/15/23 MR#: [id number] Acct: [id number] Name: POLI RMAIREZ Rep #:[id number] : 1950 72 From: Calvin Hester DO PCP: Dr. Jonathan Dillard SrChe, DO Status:R EG ER Location: ED ADDENDUM by Dr. Jerad Thomas MD on 09/15/23 at 1326 Patient was turned over to ms pending transfer. Physician at [facility] accepted. But there is no bed currently. [...] Patient is a 71-year-old female from the skilled nursing with past medical history of COPD on oxygen 06/06 as well as congestive heart failure hypertension and diabetes. She has been evaluated over the past 4 to 5 months for recurrent abdominal pain and found to have chronic colitis. There is concern this could be related to a potential malignancy. The patient is on [place] secondary to this. Reportedly she recently was diagnosed with UTI as well and has been placed on antibiotics. Patient is complaining of persistent abdominal pain as well as vaginal bleeding PFSH [facility] Medical History Acute on chronic respiratory failure [...] bisacodyl 10 mg rectal suppository 10 mg SC DAILY PRN constipation 11/11/22 [History Last Taken [...] surgery Hx of cholecystectomy Social History housing: skilled nursing Smoking Status: Former smoker alcohol intake: never [...] reported the pain has been controlled with [place] and now is no longer controlling her [...] case was discussed with Dr. Landon/surgery from [facility]. She agrees to accept the patient in [...] (Auto) 70.5 H Lymph % (Auto) 19.5 [place] % (Auto) 7.8 Eos % (Auto) 0.8 [...] Clarity Clear Urine pH 6.0 Ur Specific [place] 1.010 Urine Protein 30 H Urine Glucose [...] EDT , Management Discussion w/another healthcare provider: Automated Cutting Machine Operator and Other Discharge Plan Triage Chief Complaint: Abd Pain ED Provider: Calvin Hester Dx/Rx/DC Orders Clinical Impression: Type 2 diabetes mellitus, Abscess of intestine, COPD (chronic obstructive pulmonary disease), Chronic anemia Prescriptions: No Action bisacodyl 10 mg suppository 10 mg SC DAILY PRN (Reason: constipation) cranberry 400 mg [...] Jonathan Dillard Sr. Referrals: Jonathan Dillard Sr., DO [Primary Care Provider] - Disposition Disposition: Acute Care Hospital Discharge Location: [facility] What to do if you have Problems For any increased pain, shortness of breath, bleeding, nausea or vomiting, chestpain, or any unexpected problems, contact your Primary Care Provider. Call [facility] ([phone]) or report to the closest Emergency Room. Call 911 if necessary. 09/15/23 0535 <Electronically signed by Calvin Hester DO> Cosigner Signature (if applicable): CC: Dr. Jonathan Dillard Sr., DO ~ Signed [facility] Work Phone: 1(926) 244-227510-06-2023 Evaluation + Plan note Future Scheduled Tests Radiology* MRI Pancreas 08/19/23 [facility] 10-04-2023 Note ORIGINAL EXAMINATION: BARIUM ENEMA08/17/2023 [...] as diverticulitis or neoplasm. Interpreted by: Levi iJmenez MD Preliminary Report By: Levi Jimenez MD Electronically signed By Levi Jimenez MD Dictated Date: 08/17/2023 3:39:39 PM Prelim Date: 08/17/2023 3:50:07 PM Sign Date: 08/17/2023 3:50:07 PM Ordering Provider: [facility]10-02-2023 Hospital Discharge instructions Patient Education 08/15/2023 12:07:59 [...] including vitamins, herbs, eye drops, creams, and moue-qbw-ctpnbrp medicines. Any blood disorders you have. Any [...] provider tells you to take them. ?Taking nlne-gfi-kkrojwe medicines, vitamins, herbs, and supplements. Follow instructions [...] 10/28/2001 Document Revised: 03/06/2019 Document Reviewed: 03/06/2019 [employer] Patient Education 2020 [employer]. 08/15/2023 12:07:59 Barium Enema Barium Enema A [...] including vitamins, herbs, eye drops, creams, and exza-kdd-dfelmxc medicines. Any blood disorders you have. Any [...] provider tells you to take them. ?Taking xmur-sfj-ybpqdsx medicines, vitamins, herbs, and supplements. Follow instructions [...] 10/28/2001 Document Revised: 03/06/2019 Document Reviewed: 03/06/2019 [employer] Patient Education 2020 [employer]. 08/15/2023 12:02:48 Monitored Anesthesia Care, Care After [...] before eating solid foods. General instructions Take hkxg-caz-unjmsej and prescription medicines only as told by [...] 02/20/2017 Document Revised: 01/29/2019 Document Reviewed: 02/20/2017 [employer] Patient Education 2020 [employer]. 08/15/2023 12:02:43 Colonoscopy, Adult, Care After Colonoscopy, [...] a slower pace than normal. ?Eat soft, mdng-wh-fowcsz foods. Take bpam-ane-etfdydn or prescription medicines only as told by [...] 06/14/2005 Document Revised: 08/23/2018 Document Reviewed: 01/11/2017 [employer] Patient Education 2020 [employer]. Follow Up Care 08/09/2023 08:04:53 With:MARK JEREZ [address] [address] [phone] Business (1) When: Unknown Comments:KEEP YOUR APPOINTMENT FOR YOUR MRI ON TUESDAY AT [address] JEREZ WOULD LIKE POLI TO HAVE A BARIUM EMEMA ON TUESDAY. THE ORDER IS IN THE FOLDER. PLEASE CALL DR. JEREZ'S OFFICE TO GET THE ORDERS FOR A PREP. PLEASE CALL THE NUMBER ON THE ORDER TO SCHEDULE THE BARIUM ENEMA [phone]. [facility] 10-02-2023 Evaluation + Plan noteExtracted from: Title:Clinical Document Author:MARK JEREZ Date:08/15/23 [facility] ADMISSION HISTORY AN D PHYSICIAL CHIEF COMPLAINT: HISTORY OF PRESENT ILLNESS: REVIEW OF SYSTEMS: ACTIVE PROBLEMS: (32) Anemia (589437153) Arthritis (0424524) Benign colon polyp (1569159041) Breast cancer (910503533) Cervical spine fracture (496469330) Chest pain (36019749) Chronic anemia (902583566) Chronic back pain (832145085) COPD (35645139) Dependence on wheelchair (412595405) Diabetes mellitus type 2 (627924374) Diabetic neuropathy (238517753) Diarrhea (866164126) Dysphagia (71036297) Edema of both lower extremities (668841430) Encounter for surgical aftercare following surgery of nervous system (226252252) General weakness (54132461) GERD (gastroesophageal reflux disease) ([id number]) Glasses (4968812313) Goiter (0681591) Hard of hearing (106978121) Heart attack (96815511) History of radiation exposure (067349812) Hx of thrombocytopenia (889516722) Hyperlipidemia (74642067) Hypertension, essential (20810425) Incontinence of urine (8163457390) Osteoarthritis (9837990584) Oxygen dependent (3235831662) Pancreatic cyst (03901354) Rheumatic fever (80511912) Urinary incontinence (5800043372) MEDICATIONS: Active Inpt Meds: None Active PRN Meds: None One Time Meds: None Active IV Meds: Lactated Ringers Infusion 1,000 mL (LR 1,000 mL) Start: 08/15/23 10:41:00 EDT, Rate: 50 mL/hr, 08/15/23 10:41:00 EDT ALLERGIES: (2) Flexeril Zanaflex FAMILY HISTORY: SOCIAL HISTORY: PHYSICAL EXAM: VITALS: JvdotkKpkiBSXhdhuEGEgO4FLP6MngxFb(kg) 08/15 10:1936.7--929504PP41/02 95.0 08/15 95.0 24 Hr Tmax: 36.7 [...] LABS: 36hr Labs 08/15 1041 Blood Glucose, Udbwrsfdk772I Blood Glucose, Dxldpwqcr812J DIAGNOSTICS: IMPRESSION: PLAN: History and Physical Update I have examined the patient; reviewed the H&P and there are no changes to the H&P unless noted below. Future Appointments Appointment Date:08/17/2023 10:30:00 AM Scheduled Provider: Location:[facility] Appointment Type:XR Barium Enema Complete Appointment Date:08/19/2023 02:30:00 PM Scheduled Provider: Location:[facility] Appointment Type:MRI Pancreas Future Scheduled Tests Radiology* XR Barium Enema Complete 08/17/23 * MRI Pancreas 08/19/23 [facility] 10-02-2023 Summary of episode note Discharge Instructions Thank you for allowing [facility] to assist you with your healthcare needs. The following is importantdischarge information regarding your hospital visit. Your Care Team BARBER CARLISLE What to do next Scheduled Follow-Up Appointments Appointment Type When Where Contact InformationMRI Pancreas 08/19/2023 02:30 PM [facility] Radiology [phone] Follow Up Appointments Follow Up with MARK JEREZ When Why: KEEP YOUR APPOINTMENT FOR YOUR MRI ON TUESDAY AT [address] JEREZ WOULD LIKE POLI TO HAVE A BARIUM EMEMA ON TUESDAY. THE ORDER IS IN THE FOLDER. PLEASE CALL DR. JEREZ'S OFFICE TO GET THE ORDERS FOR A PREP. PLEASE CALL THE NUMBER ON THE ORDER TO SCHEDULE THE BARIUM ENEMA [phone]. [address] [facility] [address] [place] [address] [phone] Business (1) The Following Activity and Diet [...] including vitamins, herbs, eye drops, creams, and eehn-rsh-srfvojg medicines. Any blood disorders you have. Any [...] tells you to take them. ? Taking tzig-bfs-fbxpsiz medicines, vitamins, herbs, and supplements. Follow instructions [...] 10/28/2001 Document Revised: 03/06/2019 Document Reviewed: 03/06/2019 [employer] Patient Education 2020 [employer]. Barium Enema A barium enema is a [...] including vitamins, herbs, eye drops, creams, and wuqw-bip-gmimigg medicines. Any blood disorders you have. Any [...] tells you to take them. ? Taking wfsj-aqr-kqnsikz medicines, vitamins, herbs, and supplements. Follow instructions [...] 10/28/2001 Document Revised: 03/06/2019 Document Reviewed: 03/06/2019 [employer] Patient Education 2020 [employer]. Monitored Anesthesia Care, Care After These instructions [...] before eating solid foods. General instructions Take nsad-sog-rvwxzir and prescription medicines only as told by [...] 02/20/2017 Document Revised: 01/29/2019 Document Reviewed: 02/20/2017 [employer] Patient Education 2020 [employer] Colonoscopy, Adult, Care After This sheet gives [...] slower pace than normal. ? Eat soft, mgqk-kv-nfdktu foods. Take flqu-ukp-bclxuvm or prescription medicines only as told by [...] 06/14/2005 Document Revised: 08/23/2018 Document Reviewed: 01/11/2017 [employer]folio Patient Education 2020 [employer] Additional Information VACCINATE! IT SAVES LIVES! Members of the community who have not yet received the COVID-19 vaccine and would like to receive it can visit one of [facility] vaccine clinics. There are many vaccine clinic locations within the [facility]. For locations and available times, please visit [email or web address].[place].gov/. It is important to note that some COVID mobile vaccine clinics are held outdoors and may be canceled in rainy or stormy conditions. To learn more about pediatric vaccinations (ages 5-11), we invite you to visit the [facility] webpage. [email or web address].[email or web address].org/pages/3387-Bqgux-Rsfkpfieoni-Tscqjwfvji-Zlgxs-Ami stions.htmlTo learn more about the COVID-19 vaccine, we invite you to visit the CDC website for a list of frequently asked questions.https://www.cdc.gov/coronavirus/2019-ncov/vaccines/faq.html [facility] Patient Portal Access Instructions: Stay connected with your healthcare team and access your personal medical information anytime with the [facility] Patient Portal. Please follow the directions below to create your [facility] account: 1.Access the email account you provided upon registration to the hospital/physician office.2.Look for an invitation email from [facility].3.Open the email and access the invitation link: AcceptInvitation to [facility].4.Fill in the required quijano to create your account. To access your account, visit [facility] [employer]. Click the blue button labeled "Access Patient Portal" and then log in with the username and password that you created in the steps above. You will be able to view your test results, lab results, a summary of your visits, upcoming appointments and more. There is also a convenient messaging option where you can send secure messages to your p rovider. In addition, you will have the ability to download any documents or summaries to your computer and/or send the information securely to a physician. Remember that your healthcare information is confidential, so carefully consider who you will allowto register on the [facility] [employer] [facility] Patient Portal for access to your information. You can also access the [facility] Patient Portal on the [facility] marcy. Simply click on "Patient Portal" and then log into your account. If you would like to receive a full copy of your medical records, please contact the [facility] Medical Records Department by calling [phone], Tuesday through Tuesday between 8 a.m. and [...] Call your local pharmacy or go to [email or web address] to find one close to you.3.Make use of household items: Use cat litter or old coffee grounds to dispose medications if other options arenot available. Mix your drugs with these household products, seal them in an airtight container andthrow it into the garbage. Call [facility]: [phone] to be sure your drugs can be [...] that I should contact my d octor. Patient/Bar Back Signature: Date/Time: Relationship to Patient: Witness Name/Signature: Date/Time: [facility]10-02-2023 Nurse Progress note Attempted colonoscopy. Dr. Jerez ordered a Barium Enema. Reconstructive Dentist X-Rays taken. Radiologist stated tomuch air for a Barium Enema today. Dr. Jerez notified. Orders received. Digitally Signed by Amy Watters RN on 08/15/2023 11:54 AM [facility]10-02-2023 Note ORIGINAL HISTORY: Failed colonoscopy, stricture [...] Date: 08/15/2023 12:08:09 PM [facility] Anesthesiology Consult note Patient: POLI RAMIREZ Age: 72 years Sex: Female : 1950 Associated Diagnoses: None Author: DELFIN RAM BICYCLE SERVICE TECHNICIAN-PIPELINER Assessment Postanesthesia assessment Vitals: Vital signs from [...] by DELFIN RAM on 08/15/2023 11:22 AM [facility]10-02-2023 Anesthesiology Consult note Patient: POLI RAMIREZ [...] list: Medical Chronic anemia / SNOMED CT 714172621 / Confirmed Chronic back pain / SNOMED CT 552042007 / Confirmed COPD / SNOMED CT 45892092 / Confirmed Hypertension, essential / SNOMED CT 60947986 / Confirmed Cervical spine fracture / SNOMED CT 658465332 / Confirmed GERD (gastroesophageal reflux disease) / SNOMED CT 26UBK2T5-53G7-2503-FJ4Y-RW908SM02JV9 / Confirmed Goiter / SNOMED CT 7418597 / Confirmed Hyperlipidemia / SNOMED CT 15497120 / Confirmed Encounter for surgical aftercare following surgery of nervous system / SNOMED CT 676158317 / Confirmed Incontinence of urine / SNOMED CT 5307439211 / Confirmed, Active Problems (32) Anemia Arthritis [...] incontinence Histories Past Medical History: Active COPD (28827492) Chronic back pain (283409045) Resolved H/O hypercholesterolemia (8510215814): Resolved. Hypernatremia (7031924869): Resolved. Family History: Heart disease Father Brother Arthritis Daughter Stroke Mother Cancer Sister HTN - Hypertension Mother GERD (gastroesophageal reflux disease) Daughter Diverticulitis Daughter Procedure history: Cervical discectomy (969953142) on 07/13/2022 at 71 Years. Comments: 08/09/2022 11:44 Viji Diaz MARRIAGE PERFORMER ACDF None (117939708). Appendectomy (556814034). Comments: 08/11/2017 12:13 SHAMA BOLTON left water taken off Tubal ligation (859176597). Cholecystectomy (07645033). Arthroscopic knee operation (2236543406). Comments: 12/24/2019 13:16 SHAMA Gabriel right Lumpectomy of breast (9655177521). Comments: 12/24/2019 13:16 SHAMA Gabriel left Phacoemulsification of cataract with intraocular lens implantation (0711176415). Comments: 12/24/2019 13:16 SHAMA Gabriel both eyes Colonoscopy (175120476). Esophagogastroduodenoscopy (546029994). Cardiac catheter (8767399352). Comments: 12/24/2019 13:17 SHAMA Gabriel years ago [...] Signs(last 24 hrs) Last Charted Heart Rate Jdkmydlwe47 bpm (OCT 02 11:15) Resp Rate H 21br/min (AUG 15 10:19) PQM974 mmHg (AUG 15 11:11) PUN930 mmHg (AUG 15 11:11) BMI34.89 (AUG 15 10:29) Measurements from flowsheet : Measurements 08/15/2023 10:29 EDT Height 165 cm Admission Weight 95 kg [place] Body Weight 56.91 kg BSA Admission 2.02 Body Mass Index 34.89 kg/m2 08/15/2023 10:19 EDT Height 165 cm Admission Weight 95 kg [place] Body Weight 56.91 kg Admission Body Mass [...] mg mg 08/15/2023 11:12 EDT SN - VA - Medication glucagon recombinant 1 mg SN - VA - Route of Administration Intravenous SN - VA - By (Single) SN - VA - By (Single) SN - VA - Time Administered 08/15/2023 11:11 08/15/2023 11:11 [...] propofol 50 mg mg 08/15/2023 11:01 EDT [place] History and Physical 08/15/2023 11:00 EDT SN [...] Surgeon SN - CAt - Role Performed Logistics System Engineer 1 SN - CAt - Role Performed Tube Sorter SN - CAt - Role Performed PIPELINER 08/15/2023 11:00 EDT Heart Rate Monitored 96 [...] Person #2 We May Share AALIYAH Oakley [phone] Designated Person #2 Relationship Daughter Height 165 cm Admission Weight 95 kg [place] Body Weight 56.91 kg BSA Admission 2.02 [...] Method Explanation, Printed materials Preferred Spoken Language New Zealander Preferred Written Language [place] Zealander Information Given by Patient Patient's Current Physicians Patient's Current Physicians Discharge To, Anticipated Home with family care Prev Test Positive/Diagnosis w/COVID-19 No Current Quarantine/Isolated any Illness No Any Contact with Sick Animals/Birds No Traveled Anywhere in Last 30 Days No N/A Personal Devices, Patient Valuables None Admission Note-Nursing Procedure/Therapy Intake 08/15/2023 10:19 EDT Height 165 cm Admission Weight 95 kg [place] Body Weight 56.91 kg Admission Body Mass [...] Quadrants Present Skin Temperature Warm Skin Description [place], Dry Skin Integrity Intact Mucous Membrane Color [place] Characteristics of Speech Clear Level of Consciousness [...] Allergies Yes Anesthesia Extension Set Applied Yes Penology Teacher On Yes Colon Prep Results Excellent Consent [...] Void 08/15/2023 9:00 . Assessment and Plan [place] [employer] Anesthesiologists (ASA) physical status classification: Class IV. Anesthetic Preoperative Plan Anesthetic technique: MAC. Informed consent: signed by patient. Digitally Signed by DELFIN RAM on 08/15/2023 11:21 AM [facility]10-02-2023 Anesthesiology Consult note Patient: POLI RAMIREZ [...] by DELFIN RAM on 08/15/2023 11:19 AM [facility]10-02-2023 Note [facility] ADMISSION HISTORY AND PHYSICIAL CHIEF COMPLAINT: HISTORY OF PRESENT ILLNESS: REVIEW OF SYSTEMS: ACTIVE PROBLEMS: (32) Anemia (981384308) Arthritis (9960686) Benign colon polyp (4799298524) Breast cancer (246160559) Cervical spine fracture (875903247) Chest pain (87788164) Chronic anemia (480079255) Chronic back pain (124978259) COPD (07465497) Dependence on wheelchair (928115683) Diabetes mellitus type 2 (105039886) Diabetic neuropathy (388696086) Diarrhea (189431957) Dysphagia (61003752) Edema of both lower extremities (511709946) Encounter for surgical aftercare following surgery of nervous system (050138824) General weakness (46424257) GERD (gastroesophageal reflux disease) ([id number]) Glasses (2746662493) Goiter (3527290) Hard of hearing (283850009) Heart attack (43981193) History of radiation exposure (064198246) Hx of thrombocytopenia (568105710) Hyperlipidemia (18161654) Hypertension, essential (12851546) Incontinence of urine (6565049549) Osteoarthritis (2724817782) Oxygen dependent (2628879459) Pancreatic cyst (31389746) Rheumatic fever (32658695) Urinary incontinence (6309309176) MEDICATIONS: Active Inpt Meds: None Active PRN Meds: None One Time Meds: None Active IV Meds: Lactated Ringers Infusion 1,000 mL (LR 1,000 mL) Start: 08/15/23 10:41:00 EDT, Rate: 50 mL/hr, 08/15/23 10:41:00 EDT ALLERGIES: (2) Flexeril Zanaflex FAMILY HISTORY: SOCIAL HISTORY: PHYSICAL EXAM: VITALS: NtioirDgujFUDahrrCQJqI8PUO7MnumJf(kg) 08/15 10:1936.7--275105AN09/02 95.0 08/15 95.0 24 Hr Tmax: 36.7 [...] LABS: 36hr Labs 08/15 1041 Blood Glucose, Smbfaoxwt393U Blood Glucose, Ouhppgtrp650P DIAGNOSTICS: IMPRESSION: PLAN: History and Physical Update I have examined the patient; reviewed the H&P and there are no changes to the H&P unless noted below. Digitally Signed by MARK JEREZ MD on 08/15/2023 11:05 AM [facility]08-31-2023 Discharge summary [facility] July 14, 2023 7:47pm Note Date/Time July 14, 2023 3: 43pm [facility] Medical Records Department [address] [place] [address] Emergency Department Summary 07/14/23 MR#: [id number] Acct: [id number] Name: POLI RAMIREZ Rep #:[id number] : 1950 72 From: Shahnaz Georges PCP: [...] DNR CCA. She is a resident of [facility]. She notes that she is mostly wheelchair-bound but can walk short distances. Had a neck fracture earlier thisyear. [facility] Medical History Acute on chronic respiratory failure [...] bisacodyl 10 mg rectal suppository 10 mg SC DAILY PRN 11/11/22 [History Last Taken Unknown] [...] surgery Hx of cholecystectomy Social History housing: skilled nursing Smoking Status: Former smoker alcohol intake: never [...] Patient isalso prescribed a short course of [place] for pain control. Is given first dose [...] 76.9 H Lymph % (Auto) 14.7 L [place] % (Auto) 6.5 Eos % (Auto) 1.3 [...] Clarity Clear Urine pH 6.0 Ur Specific [place] 1.020 Urine Protein 15 H Urine Glucose [...] Action bisacodyl 10 mg suppository 10 mg SC DAILY PRN cranberry 400 mg capsule 400 [...] your Primary Care Provider. Call [facility] ([phone]) or report to the closest Emergency Room. Call 911 if necessary. 07/14/231946 <Electronically signed by Shahnaz Way DO> Cosigner Signature (if applicable): CC: Jonathan Dillard MD ~ Signed [facility] Work Phone: 1(241) 158-604406-06-[address] Vela [facility] April 19, 2023 7:53pm Note Date/Time April 19, 2023 6:13p m [facility] Medical Records Department [address] [place] [address] Emergency Department Summary 04/19/23 MR#: [id number] Acct: [id number] Name: POLI RAMIREZ Rep #:[id number] : 1950 72 From: Alejandra Vela DO PCP: Gilma STUBBS, Jonathan Status:REG ER Location: ED HPI HPI - GI History of Present Illness Chief Complaint: Abd Pain Narrative Narrative: 72-year-old female presenting with left lower quadrant abdominal pain. She states this has been present off and on for weeks. She states that the skilled nursing she is at she gets Tylenol for this and it goes away but over the last few days the Tylenol is not helping. She has nausea without vomiting. She denies constipation. She states she has loose stools its not quite diarrhea. No blackor bloody stools. She states that at times there is right-sided abdominal pain. She has not had a fever at home. [facility] Medical History Acute on chronic respiratory failure [...] bisacodyl 10 mg rectal suppository 10 mg SC DAILY PRN 11/11/22 [History Last Taken Unknown] [...] surgery Hx of cholecystectomy Social History housing: skilled nursing Smoking Status: Former smoker alcohol intake: never [...] discussed with the on-call physician for the skilled nursing. They wish to have the patient started [...] Labs: Laboratory Results - last 24 hr 04/19/23 04/19/23 04/19/23 16:53 16:53 19:08 WBC 6.3 RBC 3.35 L Hgb 9.6 L Hct 33.0 L MCV 98.5 MCH 28.7 MCHC 29.1 L RDW Std Deviation 50.7 H RDW Coeff of Amanda 14.2 Plt Count 103 L MPV 9.5 Immature Gran % (Auto) 0.500 Neut % (Auto) 81.7 H Lymph % (Auto) 11.2 L Sheridan % (Auto) 5.5 Eos % (Auto) 0.9 [...] Clarity Clear Urine pH 6.5 Ur Specific [place] 1.010 Urine Protein Negative Urine Glucose (UA) [...] is 63 hu. ACR White Paper guidelines (Herrosio, et al. JACR 2018; 15(2):264-273) recommend MRI or CT without and with intravenous contrast. Non obstructive 2 mm left renal parenchymal stones. 29m left adrenal mass. This is 100 HU. ACR White Paper guidelines (Bailey, et al. JACR 2017; 14(8):4211-3546) recommend a low dose, non-contrast adrenal CT or chemical-shift adrenal MRI follow-up study. Other findings as above. Electronically Signed: Edward Gamboa MD at 18:58 EDT Reading Location ID and State: [facility] / [place] , Service support , Discharge Plan Triage [...] Action bisacodyl 10 mg suppository 10 mg SC DAILY PRN cranberry 400 mg capsule 400 [...] your Primary Care Provider. Call [facility] ([phone]) or report to the closest Emergency Room. Call 911 if necessary. 04/19/231952 <Electronically signed by Alejandra Vela DO> Cosigner Signature (if applicable): CC: Jonathan Dillard MD ~ Signed [facility] Work Phone: 1(121) 465-977004-14-[address] Jaime [facility] February 25, 2023 11:39am Note Date/Time February 25, 2023 11: 37am [facility] Medical Records Department [address] [place] [address] Transfer to [facility] MR#: [id number] Acct: [id number] Name: POLI RAMIREZ Rep #:[id number] : 1950 72 From: Pratima Jaime MD PCP: ARLENE Edmonds Status:ADM I N Certification of patient admission REQUIRED AT TIME OF ADMISSION. I CERTIFY THAT POST-HOSPITAL ECF SERVICES ARE REQUIRED TO BE GIVEN ON AN IN-PATIENT BASIS BECAUSE OF THE ABOVE NAMED PATIENT'S NEED FOR [facility] CARE ON A CONTINUING BASIS FOR THE CONDITION(S) FOR WHICH HE/SHE WAS RECEIVING IN-PATIENT HOSPITAL SERVICES PRIOR TO HIS/HER TRANSFER TO THE ECF. 02/25/23 1139<Electronically signed by Pratima Jaime MD> [...] displaced fracture of cervical vertebra resulting in skilled nursing placement, VTE presented to [facility] 02/18/23 due to unresponsiveness. She was found unresponsive by the skilled nursing where she lived. She was found to [...] discharge to schedule your hospital follow-up appointment (ph [phone]) -Weigh yourself every day. A sudden weight [...] Rebecca Resendiz ; Thomas Ahumada ; Hernando Padrno Instructions Patient Instructions: Coping with Heart Failure, [...] risk of hypoglycemia -Would recommend lab work ([facility]) to check your kidney function in 2 to 3 days through your primary care physician's office. Please call their office upon discharge to obtain order for lab work. -You will need to follow-up with cardiology upon discharge, please call the office upon discharge to schedule your hospital follow-up appointment ( [phone]) -Weigh yourself every day. A sudden weight [...] Continued bisacodyl 10 mg suppository 10 mg SC DAILY PRN cranberry 400 mg capsule 400 [...] hospital follow-up appointment )) Barber Carlisle NP, [employer]SEMBLER-C [Primary Care Provider] - Within 1 Week Disposition Disposition (needs filled in before D/C Order can be placed): [facility] Facility 02/25/23 1139 <Electronically signed by Pratima Jaime MD> Cosigner Signature (if applicable): CC: [employer]SEMBLER-C Viji Richey; [employer]ER-C Barber Carlisle; Dr. Serge Banks MD; Dr. Hernando Padron MD; Dr. Ajit Mcgill DO; Dr. Thomas Ahumada MD; Dr. Rebecca Resendiz DO; Dr. Martín Monique MD; Dr. Krzysztof Pennington MD ~ [facility] Work Phone: [phone]) 155-362804-13-[address] [facility] February 24, 2023 3:21pm Note Date/Time February 24, 2023 3:2 1pm [facility] Medical Records Department [address] [place] [address] Progress Note - Hospitalist 02/24/23 1519 MR#: [id number] Acct: [id number] Name: POLI RAMIREZ Rep #:[id number] : 1950 72 From: Pratima Jaime MD PCP: Barber Carlisle, [employer]OWS [employer] ASSEMBLER-C Status:ADM I N Location: [place] [address] Reason for Visit Reason for Visit: Diagnoses [...] 80.1 H, Lymph % (Auto) 12.6 L, Sheridan % (Auto) 5.1, Eos % (Auto) 1.5, [...] - Final 02/19/23 13:30 Urine Catheter - Stephens Urine Culture - Final Culture exhibits no growth. 02/18/23 00:35 Sputum, Induced/Lukens Gram Stain - Final 02/18/23 00:35 Sputum, Induced/Lukens Respiratory Culture - Final 02/17/23 22:33 Urine Catheter - Stephens Legionella Antigen - Final 02/17/23 22:33 Urine [...] documentation, 30minutes Charges/Coding Visit Charges Inpatient E&M: 71560 Subs Hosp L2 02/24/23 1521 <Electronically signed by Pratima Jaime MD> Cosigner Signature (if applicable): CC: ~ Signed [facility] Work Phone: 1(220) 776-275404-12-[address] Jaime [facility] February 23, 2023 2:03pm Note Date/Time February 23, 2023 10: 52am [facility] Medical Records Department [address] [place] [address] Progress Note - Hospitalist 02/23/23 1051 MR#: [id number] Acct: [id number] Name: POLI RAMIREZ Rep #:[id number] : 1950 72 From: Pratima Jaime MD PCP: Barber Carlisle [employer]OWS [employer]GER ASSEMBLER-Andrea Status:ADM I N Location: [place] [address] Reason for Visit Reason for Visit: Diagnoses [...] (Auto) 78.1 H, Lymph % (Auto) 13.7L, Sheridan % (Auto) 6.1, Eos % (Auto) 1.5, [...] - Final 02/19/23 13:30 Urine Catheter - Stephens Urine Culture - Final Culture exhibits no growth. 02/18/23 00:35 Sputum, Induced/Lukens Gram Stain - Final 02/18/23 00:35 Sputum, Induced/Lukens Respiratory Culture - Final 02/17/23 22:33 Urine Catheter - Stephens Legionella Antigen - Final 02/17/23 22:33 Urine [...] documentation, 30minutes Charges/Coding Visit Charges Inpatient E&M: 49107 Subs Hosp L2 02/23/23 1403 <Electronically signed by Pratima Jaime MD> Cosigner Signature (if applicable): CC: ~ Signed [facility] Work Phone: 1(871) 555-779504-12-[address] Gonzalez [facility] February 23, 2023 9:38am Note Date/Time February 23, 2023 9:3 8am [facility] Medical Records Department [address] [place] [address] Progress Note - Cardiology 02/23/2335 MR#: [id number] Acct: [id number] Name: POLI RAMIREZ Rep #:[id number] : 1950 72 From: Miroslava Gonzalez MD PCP: ARLENE Edmonds Status:ADM I N Location: [place] [address] Subjective Subjective No chest pain or shortness [...] (Auto) 78.1 H, Lymph % (Auto) 13.7L, Sheridan % (Auto) 6.1, Eos % (Auto) 1.5, [...] 78.1 H, Lymph % (Auto) 13.7 L, Sheridan % (Auto) 6.1, Eos % (Auto) 1.5, [...] Cosigner Signature (if applicable): CC: ~ Signed [facility] Work Phone: [phone]) 954-607804-11-[address] Banks [facility] February 22, 2023 2:54pm Note Date/Time February 22, 2023 8:3 6am [facility] Medical Records Department [address] [place] [address] Progress Note - Barrel Painter 02/22/23 0832 MR#: [id number] Acct: [id number] Name: POLI RAMIREZ Rep #:[id number] : 1950 72 From: Serge Banks MD PCP: Barber Carlisle BELLOWS CHARGER ASSEMBLERGiancarlo Status:ADM I N [facility] Assessment/Plan (1) Cardiomyopathy: (2) [...] 82.0 H, Lymph % (Auto) 9.4 L, Sheridan % (Auto) 6.6, Eos % (Auto) 1.6, [...] - Final 02/19/23 13:30 Urine Catheter - Stephens Urine Culture - Final Culture exhibits no growth. 02/17/23 22:50 Blood Culture (Wb) - Left Forearm Blood Culture - Preliminary No growth in 48 hours. 02/17/23 22:28 Blood Culture (Wb) - Anticubital Left Blood Culture - Preliminary No growth in 48 hours. 02/18/23 00:35 Sputum, Induced/Lukens Gram Stain - Final 02/18/23 00:35 Sputum, Induced/Lukens Respiratory Culture - Final 02/17/23 22:33 Urine Catheter - Stephens Legionella Antigen - Final 02/17/23 22:33 Urine [...] affect normal Charges/Coding Visit Charges Inpatient E&M: 08815 Subs Hosp L2 02/22/23 6769 <Electronically signed by Serge Banks MD> Cosigner Signature (if applicable): CC: ~ Signed [facility] Work Phone: [phone] 874-191904-11-[address] Gonzalez [facility] February 22, 2023 9:26am Note Date/Time February 22, 2023 9:2 6am [facility] Medical Records Department [address] [place] [address] Progress Note - Cardiology 02/22/23921 MR#: [id number] Acct: [id number] Name: POLI RAMIREZ Rep #:[id number] : 1950 72 From: Miroslava Gonzalez MD [...] 82.0 H, Lymph % (Auto) 9.4 L, Sheridan % (Auto) 6.6, Eos % (Auto) 1.6, [...] - Final 02/19/23 13:30 Urine Catheter - Stephens Urine Culture - Final Culture exhibits no growth. Rhythm Strip Rhythm Strip: Sinus Rhythm Rate: 91 Ectopy: None Cardiology Labs/Tests 02/22/23 04:05: WBC 5.8, RBC 3.11 L, Hgb 8.5 L, Hct 30.0 L, MCV 96.5, MCH 27.3, MCHC 28.3 L, Plt Count 120 L, MPV 9.0, Immature Gran % (Auto) 0.200, Neut % (Auto) 82.0 H, Lymph % (Auto) 9.4 L, Sheridan % (Auto) 6.6, Eos % (Auto) 1.6, [...] hemoglobin noted. Follow as per critical care. 02/22/23 0993 <Electronically signed by Miroslava Gonzalez MD> Cosigner Signature (if applicable): CC: ~ Signed [facility] Work Phone: [phone] Jaime [facility] February 22, 2023 8:30am Note Date/Time February 22, 2023 8:3 0am [facility] Medical Records Department [address] [place] [address] Progress Note - Hospitalist 02/22/23819 MR#: [id number] Acct: [id number] Name: POLI RAMIREZ Rep #:[id number] : 1950 72 From: Pratima Jaime MD [...] 82.0 H, Lymph % (Auto) 9.4 L, Sheridan % (Auto) 6.6, Eos % (Auto) 1.6, [...] - Final 02/19/23 13:30 Urine Catheter - Stephens Urine Culture - Final Culture exhibits no growth. 02/17/23 22:50 Blood Culture (Wb) - Left Forearm Blood Culture - Preliminary No growth in 48 hours. 02/17/23 22:28 Blood Culture (Wb) - Anticubital Left Blood Culture - Preliminary No growth in 48 hours. 02/18/23 00:35 Sputum, Induced/Lukens Gram Stain - Final 02/18/23 00:35 Sputum, Induced/Lukens Respiratory Culture - Final 02/17/23 22:33 Urine Catheter - Stephens Legionella Antigen - Final 02/17/23 22:33 Urine [...] documentation, 30minutes Charges/Coding Visit Charges Inpatient E&M: 66271 Subs Hosp L2 02/22/23 0830 <Electronically signed by Pratima Jaime MD> Cosigner Signature (if applicable): CC: ~ Signed [facility] Work Phone: [phone] Jaime [facility] February 21, 2023 4:59pm Note Date/Time February 21, 2023 7:0 7am [facility] Medical Records Department [address] [place] [address] Progress Note - Hospitalist 02/21/23706 MR#: [id number] Acct: [id number] Name: POLI RAMIREZ Rep #:[id number] : 1950 72 From: Pratima Jaime MD PCP: Barber Carlisle [employer]OWS [employer] ASSEMBLER-Andrea Status:ADM I N Location: ICU ICU03-1 Reason [...] 79.0 H, Lymph % (Auto) 14.1 L, Sheridan % (Auto) 5.3, Eos % (Auto) 0.7, Baso % (Auto) 0.2, Absolute Neuts (auto) 3.3, Absolute Lymphs (auto) 0.59 L, Nucleated RBC % 0, DifferentialComment COMMENT, Diff Path Review March bernarda, Platelet Estimate SLT 02/21/23 03:10: Sodium 145, Potassium 3.2 L, Chloride 107, Carbon Dioxide 36.0 H, Anion Gap 2 L, BUN 17, Creatinine 0.93, Estim Creat Clear Calc 48.48, Est GFR (MDRD) Af Amer 76, Est GFR (MDRD) Non-Af 63, BUN/Creatinine Ratio 18.3, Glucose 190 H, Calcium 7.9 L, Total Bilirubin 0.80, AST 21, ALT 24, Alkaline Ibyetkdufym11, Total Protein 5.6 L, Albumin 2.2 L, Globulin 3.4, Albumin/Globulin Ratio 0.6L 02/21/23 03:10: Vancomycin Trough 25.5 H Micro: Microbiology 02/17/23 22:50 Blood Culture (Wb) - Left Forearm Blood Culture - Preliminary No growth in 48 hours. 02/17/23 22:28 Blood Culture (Wb) - Anticubital Left Blood Culture - Preliminary No growth in 48 hours. 02/19/23 13:30 Urine Catheter - Stephens Urine Culture - Preliminary Culture exhibits no growth. 02/18/23 00:35 Sputum, Induced/Lukens Gram Stain - Final 02/18/23 00:35 Sputum, Induced/Lukens Respiratory Culture - Final 02/17/23 22:33 Urine Catheter - Stephens Legionella Antigen - Final 02/17/23 22:33 Urine [...] documentation, 30minutes Charges/Coding Visit Charges Inpatient E&M: 56245 Subs Hosp L2 02/21/23 7888 <Electronically signed by Pratima Jaime MD> Cosigner Signature (if applicable): CC: ~ Signed [facility] Work Phone: [phone] Banks [facility] February 21, 2023 4:00pm Note Date/Time February 21, 2023 8:0 3am [facility] Medical Records Department [address] [place] [address] Progress Note - Barrel Painter 02/21/23 0752 MR#: [id number] Acct: [id number] Name: POLI RAMIREZ Rep #:[id number] : 1950 72 From: Serge Banks MD PCP: ARLENE Edmonds Status:ADM I N Location: ICU ICU-1 Assessment & Plan Assessment/Plan (1) Cardiomyopathy: (2) [...] 79.0 H, Lymph % (Auto) 14.1 L, [place] % (Auto) 5.3, Eos % (Auto) 0.7, Baso % (Auto) 0.2, Absolute Neuts (auto) 3.3, Absolute Lymphs (auto) 0.59 L, Nucleated RBC % 0, DifferentialComment COMMENT, Diff Path Review March bernarda, Platelet Estimate SLT 02/21/23 03:10: Sodium 145, Potassium 3.2 L, Chloride 107, Carbon Dioxide 36.0 H, Anion Gap 2 L, BUN 17, Creatinine 0.93, Estim Creat Clear Calc 48.48, Est GFR (MDRD) Af Amer 76, Est GFR (MDRD) Non-Af 63, BUN/Creatinine Ratio 18.3, Glucose 190 H, Calcium 7.9 L, Total Bilirubin 0.80, AST 21, ALT 24, Alkaline Tvyygybjska10, Total Protein 5.6 L, Albumin 2.2 L, Globulin 3.4, Albumin/Globulin Ratio 0.6L 02/21/23 03:10: Vancomycin Trough 25.5 H Micro: Microbiology 02/17/23 22:50 Blood Culture (Wb) - Left Forearm Blood Culture - Preliminary No growth in 48 hours. 02/17/23 22:28 Blood Culture (Wb) - Anticubital Left Blood Culture - Preliminary No growth in 48 hours. 02/19/23 13:30 Urine Catheter - Stephens Urine Culture - Preliminary Culture exhibits no growth. 02/18/23 00:35 Sputum, Induced/Lukens Gram Stain - Final 02/18/23 00:35 Sputum, Induced/Lukens Respiratory Culture - Final 02/17/23 22:33 Urine Catheter - Stephens Legionella Antigen - Final 02/17/23 22:33 Urine [...] and affect normal Charges/Coding Procedures Hospitalists Procedures: 62202 Critial Care 1st Hr 02/21/23 1600 <Electronically signed by Serge Banks MD> Cosigner Signature (if applicable): CC: ~ Signed [facility] Work Phone: [phone]) [phone] Gonzalez [facility] February 21, 2023 9:54am Note Date/Time February 21, 2023 9:5 4am [facility] Medical Records Department [address] [place] [address] [place] [address] Progress Note - Cardiology 02/21/23 0951 MR#: [id number] Acct: [id number] Name: POLI RAMIREZ Rep #:[id number] : 1950 72 From: Miroslava Gonzalez MD [...] 79.0 H, Lymph % (Auto) 14.1 L, [place] % (Auto) 5.3, Eos % (Auto) 0.7, [...] Bilirubin 0.80, AST 21, ALT 24, Alkaline Cubypmkoste46, Total Protein 5.6 L, Albumin 2.2 L, Globulin 3.4, Albumin/Globulin Ratio 0.6L 02/21/23 03:10: Vancomycin Trough 25.5 H Micro: Microbiology 02/19/23 13:30 Urine Catheter - Stephens Urine Culture - Final Culture exhibits no [...] 79.0 H, Lymph % (Auto) 14.1 L, [place] % (Auto) 5.3, Eos % (Auto) 0.7, [...] Carlisle Performed By: Fabi Delacruz, MARC, RVT Physical Exam Narrative Intubated. Sedated on [...] hemoglobin noted. Follow as per critical care. 02/21/23 0954 <Electronically signed by Miroslava Gonzalez MD> Cosigner Signature (if applicable): CC: ~ Signed [facility] Work Phone: [phone]) [phone] Consult note Author Armani Napier [facility] February 21, 2023 4:07am Note Date/Time February 21, 2023 4:0 7am [facility] Medical Records Department [address] [place] [address] Pharmacokinetic/Renal -Consult 02/21/23 0406 MR#: [id number] Acct: [id number] Name: POLI RAMIREZ Rep #:[id number] : 1950 72 From: Armani Valdez od [...] 48 hours. 02/19/23 13:30 Urine Catheter - Stephens Urine Culture - Preliminary Culture exhibits no growth. 02/18/23 00:35 Sputum, Induced/Lukens Gram Stain - Final 02/18/23 00:35 Sputum, Induced/Lukens Respiratory Culture - Final 02/17/23 22:33 Urine Catheter - Stephens Legionella Antigen - Final 02/17/23 22:33 Urine [...] and time ordered]: 02/21 @ 1530 02/21/23 040 <Electronically signed by Armani bolaños > Date _ Armani Napier Cosigner Signature (if applicable): Date CC: ~ Signed [facility] Work Phone: [phone] 382-888704-09-[address] Monique [facility] February 20, 2023 4:59pm Note Date/Time February 20, 2023 4:37 pm [facility] Medical Records Department [address] [place] [address] Progress Note - Barrel Painter 02/20/23 1634 MR#: [id number] Acct: [id number] Name: POLI RAMIREZ Rep #:[id number] : 1950 72 From: Martín Monique MD [...] performed. [place] [address] Subjective Subjective Intubated and sedated on ventilator, [...] (Auto) 80.9 H, Lymph % (Auto) 11.6L, [place] % (Auto) 6.4, Eos % (Auto) 0.2, [...] 48 hours. 02/19/23 13:30 Urine Catheter - Stephens Urine Culture - Preliminary Culture exhibits no growth. 02/18/23 00:35 Sputum, Induced/Lukens Gram Stain - Final 02/18/23 00:35 Sputum, Induced/Lukens Respiratory Culture - Final 02/17/23 22:33 Urine Catheter - Stephens Legionella Antigen - Final 02/17/23 22:33 Urine [...] Carlisle Performed By: Fabi Delacruz, MARC, RVT Chest X-Ray 02/20/23 06:28 IMPRESSION: No significant interval change from prior exam. Endotracheal tube 7.1 as above the judith at the level of clavicles. Electronically Signed: Keny Duron MD at 6:54 EDT Reading Location ID and State: [facility] / [place] Tel , Service support , Rhythm Strip Rhythm Strip: Sinus Rhythm Rate: 95 Ectopy: None Physical Exam Narrative 10 system exam done. Unchanged from yesterday. Charges/Coding Procedures Hospitalists Procedures: 51962 Critial Care 1st Hr 02/20/23 1659 <Electronically signed by Martín Monique MD> Cosigner Signature (if applicable): CC: ~ Signed [facility] Work Phone: [phone]) 201-444804-09-[address] Gonzalez [facility] February 20, 2023 10:38am Note Date/Time February 20, 2023 10:3 8am [facility] Medical Records Department [address] [place] [address] Progress Note - Cardiology 02/20/23 1035 MR#: [id number] Acct: [id number] Name: POLI RAMIREZ Rep #:[id number] : 1950 72 From: Miroslava Gonzalez MD PCP: Barber Carlisle NP-C Status:ADM I N Location: ICU ICU03-1 Subjective [...] (Auto) 80.9 H, Lymph % (Auto) 11.6L, [place] % (Auto) 6.4, Eos % (Auto) 0.2, [...] Micro: Microbiology 02/19/23 13:30 Urine Catheter - Stephens Urine Culture - Preliminary Culture exhibits no [...] 80.9 H, Lymph % (Auto) 11.6 L, [place] % (Auto) 6.4, Eos % (Auto) 0.2, [...] Cosigner Signature (if applicable): CC: ~ Signed [facility] Work Phone: [phone]) 196-825004-09-[address] Padron [facility] February 20, 2023 8:46am Note Date/Time February 20, 2023 7:12 am [facility] Medical Records Department [address] [place] [address] Progress Note - Hospitalist 02/20/23711 MR#: [id number] Acct: [id number] Name: POLI RAMIREZ Rep #:[id number] : 1950 72 From: Hernando Padron MD [...] (Auto) 80.9 H, Lymph % (Auto) 11.6L, Sheridan % (Auto) 6.4, Eos % (Auto) 0.2, [...] to follow. 02/17/23 22:33 Urine Catheter - Stephens Legionella Antigen - Final 02/17/23 22:33 Urine [...] 45 Minutes Charges/Coding Visit Charges Inpatient E&M: 24285 Subs Hosp L2 02/20/23 0846 <Electronically signed by Hernando Padron MD> Cosigner Signature (if applicable): CC: ~ Signed [facility] Work Phone: [phone]) 349-168104-09-[address] Padron [facility] February 20, 2023 7:12am Note Date/Time February 19, 2023 5:15 pm [facility] Medical Records Department [address] [place] [address] Pharmacokinetic/Renal -Consult 02/19/23 1711 MR#: [id number] Acct: [id number] Name: POLI RAMIREZ Rep #:[id number] : 1950 72 From: Gretchen Lance PCP: [...] to follow. 02/17/23 22:33 Urine Catheter - Stephens Legionella Antigen - Final 02/17/23 22:33 Urine [...] as required. Follow-Up Labs: Trough Vancomycin - 4.10. @0330 before 0400 dose 02/19/23 1715 <Electronically signed by Gretchen Lance > Date _ Gretchen Lance 02/20/23 07 <Electronically signed by Hernando Padron MD> Cosigner Signature (if applicable): Date Hernando Padron MD CC: ~ Signed [facility] Work Phone: [phone]) 526-723804-08-[address] Monique [facility] February 19, 2023 1:55pm Note Date/Time February 19, 2023 10:4 7am [facility] Medical Records Department [address] [place] [address] Progress Note - Barrel Painter 02/19/23 1047 MR#: [id number] Acct: [id number] Name: POLI RAMIREZ Rep #:[id number] : 1950 72 From: Martín oMnique MD PCP: Barber Carlisle, MELCHOR-Andrea Status:ADM I N Location: ICU ICU03-1 Assessment [...] performed. [place] [address], [address]. Subjective Subjective Subjective patient is mildly sedated [...] Ventilator 40 02/19/23 10:02/19/23 10:02/19/23 10:02/19/23 10:02/19/23 10:00 02/19/23 10:00 02/19/23 10:00 Oxygen Delivery [...] 79.0 H, Lymph % (Auto) 13.9 L, Sheridan % (Auto) 6.5, Eos % (Auto) 0.2, [...] to follow. 02/17/23 22:33 Urine Catheter - Stephens Legionella Antigen - Final 02/17/23 22:33 Urine [...] Cosigner Signature (if applicable): CC: ~ Signed [facility] Work Phone: [phone]) 787-881304-08-[address] Gonzalez [facility] February 19, 2023 11:57am Note Date/Time February 19, 2023 11:5 6am [facility] Medical Records Department [address] [place] [address] Consultation - Cardiology 02/19/23 1146 MR#: [id number] Acct: [id number] Name: POLI RAMIREZ Rep #:[id number] : 1950 72 From: Miroslava Gonzalez MD PCP: ARLENE Edmonds Status:ADM I N Location: ICU ICU-1 Assessment & Plan Assessment/Plan (1) Respiratory disorder [...] intubated and unable to provide any history. [facility] Medical History (Updated 02/19/23 @ 11:53 by [...] bisacodyl 10 mg rectal suppository 10 mg SC DAILY PRN 11/11/22 [History Last Taken Unknown] [...] 00:[address] Rebecca Resendiz DO) housing: skilled nursing Smoking Status: Former smoker alcohol intake: never [...] 79.0 H, Lymph % (Auto) 13.9 L, Sheridan % (Auto) 6.5, Eos % (Auto) 0.2, [...] Gas Notified Whom Blood Gas Notified Time 2811 Rhythm Strip Rhythm Strip: Sinus Rhythm Rate: 95 Ectopy: None Cardiology Labs/Tests 02/18/23 17:16: pH 7.54 H, Bicarbonate Actual 50.4 H, Base Excess 28 H, O2 Saturation 93 L, ABG pCO2 59.3 H, ABG pO2 62 L, Jovon Test P 04/08/23 03:55: WBC 4.8, RBC 2.69 L, Hgb 7.5 L, Hct 25.5 L, MCV 94.8, MCH 27.9, MCHC 29.4 L D, Plt Count 104 L, MPV 9.0, Immature Gran % (Auto) 0.400, Neut % (Auto) 79.0 H, Lymph % (Auto) 13.9 L, Sheridan % (Auto) 6.5, Eos % (Auto) 0.2, [...] Gonzalez MD> Cosigner Signature (if applicable): CC: BELLOWS CHARGER ASSEMBLER-C Viji Richey; BELLOWS CHARGER ASSEMBLER-C Barber Carlisle; Dr. Serge Banks MD; Dr. Hernando Padron MD; Dr. Ajit Mcgill DO; Dr. Thomas Ahumada MD; Dr. Rebecca Resendiz DO; Dr. Martín Monique MD; Dr. Krzysztof Pennington MD~ Signed [facility] Work Phone: 1(407) 315-914504-08-[address] Padron [facility] February 19, 2023 8:28am Note Date/Time February 19, 2023 7:11 am [facility] Medical Records Department [address] [place] [address] Progress Note - Hospitalist 02/19/23709 MR#: [id number] Acct: [id number] Name: POLI RAMIREZ Rep #:[id number] : 1950 72 From: Hernando Padron MD [...] 79.0 H, Lymph % (Auto) 13.9 L, Sheridan % (Auto) 6.5, Eos % (Auto) 0.2, [...] - Final 02/17/23 22:33 Urine Catheter - Stephens Legionella Antigen - Final 02/17/23 22:33 Urine [...] 55 Minutes Charges/Coding Visit Charges Inpatient E&M: 08191 Subs Hosp L3 02/19/23 0828 <Electronically signed by Hernando Padron MD> Cosigner Signature (if applicable): CC: ~ Signed [facility] Work Phone: 1(337) 276-241504-07-[address] Monique [facility] February 18, 2023 8:01pm Note Date/Time February 18, 2023 9:53 am [facility] Medical Records Department [address] [place] [address] Consultation - Barrel Painter 02/18/23 0953 MR#: [id number] Acct: [id number] Name: POLI RAMIREZ Rep #:[id number] : 1950 72 From: Martín Monique MD [...] Monique MD> Cosigner Signature (if applicable): cc: BELLOWS CHARGER ASSEMBLER-C Viji Richey; BELLOWS CHARGER ASSEMBLER-C Barber Carlisle; Dr. Serge Banks MD; Dr. [...] Thank you for consulting [facility] for critical care. We will follow the patient with you.. Martín [facility] Data Date of Consult: 02/18/23 HPI Narrative Reason for Consultation: Respiratory failure on mechanical ventilation, chronic hypercarbia HPI Narrative: POLI RAMIREZ, is a unfortunate 72-year-old woman who was at the skilled nursing for rehab after neck fracture was found unresponsive at her skilled nursing with SPO2 70s GCS 3.? No response [...] GERD, frequent falls, insomnia, obstructive sleep apnea, VA, generalized weakness, displaced fracture of the sixth and seventh cervical vertebrae, pancytopenia, history of breast cancer, nicotine dependence, osteoarthritis both shoulders, type 2 diabetes with diabetic neuropathy, impaired mobility, venous insufficiency, urinary incontinence. Her home medications were reviewed. Surgical history: Left breast lumpectomy, C-spine surgery, cholecystectomy. Family history is noncontributory.? Social history she is a former smoker. [facility] Medical History (Updated 02/18/23 @ 12:37 by [...] bisacodyl 10 mg rectal suppository 10 mg SC DAILY PRN 11/11/22 [History Last Taken Unknown] [...] 00:[address] Rebecca Resendiz DO) housing: skilled nursing Smoking Status: Former smoker alcohol intake: never [...] 87.0 H, Lymph % (Auto) 6.6 L, Sheridan % (Auto) 3.6, Eos % (Auto) 0.2, [...] Sl. Cloudy, Urine pH 5.0, Ur Specific [place] 1.030, Urine Protein 100 H, Urine Glucose [...] 88.6 H, Lymph % (Auto) 4.5 L, Sheridan % (Auto) 5.7, Eos % (Auto) 0.0, [...] Micro: Microbiology 02/17/23 22:33 Urine Catheter - Stephens Legionella Antigen - Final 02/17/23 22:33 Urine [...] ED MD MONIQUE Blood Gas Notified Time 0012 Rhythm Strip Rhythm Strip: Sinus Rhythm Rate: 95 Ectopy: None Radiology Impression Brain CT 02/17/23 22:26 IMPRESSION: 1. No evidence of acute intracranial pathology. 2. Diffuse involutional changes and chronic ischemic small vessel white matter disease. AIDOC was utilized to assist in identifying pertinent positive findings. Electronically Signed: Calvin Botello MD at 0:04 EDT Reading Location ID and State: [place] / [place] Tel , Service support , Chest X-Ray [...] Signed: Basim Leija DO at 2:02 EDT Reading Location ID and State: [facility] / [place] Tel , Service support , Charges/Coding Procedures Hospitalists Procedures: 32363 Critial Care 1st Hr 02/18/23 1241 <Electronically signed by Martín Monique MD> Cosigner Signature (if applicable): CC: BELLOWS CHARGER ASSEMBLERGiancarlo Richey; ARLENE Carlisle; Dr. Serge Banks MD; Dr. Ajit Mcgill DO; Dr. Thomas Ahumada MD; Dr. Rebecca Resendiz DO; Dr. Martín Monique MD; Dr. Krzysztof Pennington MD~ Signed [facility] Work Phone: [phone]) 706-972804-07-[address] Padron [facility] February 18, 2023 8:24am Note Date/Time February 18, 2023 7:16 am [facility] Medical Records Department [address] [place] [address] Progress Note - Hospitalist 02/18/23711 MR#: [id number] Acct: [id number] Name: POLI RAMIREZ Rep #:[id number] : 1950 72 From: Hernando Padron MD [...] 1030.02 Output Total 1000 / 1000 Balance 30.02 / 30.02 Lab / Micro Data Result Diagrams: 02/18/23 [...] 87.0 H, Lymph % (Auto) 6.6 L, Sheridan % (Auto) 3.6, Eos % (Auto) 0.2, [...] Sl. Cloudy, Urine pH 5.0, Ur Specific [place] 1.030, Urine Protein 100 H, Urine Glucose [...] 88.6 H, Lymph % (Auto) 4.5 L, Sheridan % (Auto) 5.7, Eos % (Auto) 0.0, [...] Micro: Microbiology 02/17/23 22:33 Urine Catheter - Stephens Legionella Antigen - Final 02/17/23 22:33 Urine [...] Notified Whom ED Blood Gas Notified Time 4366 Radiography Diagnostic Testing: Radiology Impression Brain CT [...] 55 Minutes Charges/Coding Visit Charges Inpatient E&M: 00082 Subs Hosp L3 02/18/23 0824 <Electronically signed by Hernando Padron MD> Cosigner Signature (if applicable): CC: ~ Signed [facility] Work Phone: 1(107) 988-780504-07-2023 Consult note Author Armani Napier [facility] February 18, 2023 4:15am Note Date/Time February 18, 2023 4:15 am [facility] Medical Records Department [address] [place] [address] Pharmacokinetic/Renal -Consult 02/18/23413 MR#: [id number] Acct: [id number] Name: POLI RAMIREZ Rep #:[id number] : 1950 72 From: Armani Valdez od [...] and time ordered]: 02/19 @ 1530 02/18/23 8745 <Electronically signed by Armani bolaños > Date _ Armani Rao Signature (if applicable): Date CC: ~ Signed [facility] Work Phone: 1(215) 687-554604-07-2023 History and physical note Author Dr. Resendiz [facility] February 18, 2023 1:48am Note Date/Time February 18, 2023 12:3 2am [facility] Medical Records Department [address] [place] [address] H&P Exam - Hospitalist 02/18/23 0029 MR#: [id number] Acct: [id number] Name: POLI RAMIREZ Rep #:[id number] : 1950 72 From: Rebecca Resendiz DO PCP: ARLENE Edmonds Status:ADM I N Location: ICU ICU03-1 HPI - General General Date of Admission: 02/18/23 Date of Service: 02/18/23 Chief Complaint: Unresponsiveness HPI Narrative POLI RAMIREZ, is a 72 F who presented to the emergency department at [facility] secondary to unresponsiveness. The patient was found to be unresponsive by the skilled nursing staff at where she lives. Upon presentation [...] EKG showed normal sinus rhythm with normal SC interval however she has slightly prolonged QTc. No signs of ischemic changes were noted. [facility] Medical History Anemia Atherosclerotic heart disease Chronic [...] bisacodyl 10 mg rectal suppository 10 mg SC DAILY PRN 11/11/22 [History Last Taken Unknown] [...] 00:[address] Rebecca Resendiz DO) housing: skilled nursing Smoking Status: Former smoker alcohol intake: never [...] 87.0 H, Lymph % (Auto) 6.6 L, Sheridan % (Auto) 3.6, Eos % (Auto) 0.2, [...] Sl. Cloudy, Urine pH 5.0, Ur Specific [place] 1.030, Urine Protein 100 H, Urine Glucose [...] identifying pertinent positive findings. Electronically Signed: Calvin Btoello MD at 0:04 EDT Reading Location ID and State: [facility] / [place] Tel , Service support , Chest X-Ray [...] the morning Charges/Coding Visit Charges Inpatient E&M: 14730 Init Hosp L3 02/18/23 0148 <Electronically signed by Rebecca Resendiz DO> Cosigner Signature (if applicable): CC: ARLENE Carlisle; Dr. Rebecca Resendiz DO~ Signed [facility] Work Phone: 1(337) 440-386604-07-[address] Tsai [facility] February 18, 2023 12:19am Note Date/Time February 17, 2023 10:3 4pm [facility] Medical Records Department [address] [place] [address] Emergency Department Summary 02/17/23 MR#: [id number] Acct: [id number] Name: POLI RAMIREZ Rep #:[id number] : 1950 72 From: Ellis Tsai MD PCP: ARLENE Edmonds Status:REG E R Location: ED HPI History of Present Illness Chief Complaint: Unresponsive Informant: EMS Narrative Narrative: Patient brought from local skilled nursing found unresponsive by skilled nursing staff. Barely breathing, hypoxic in the 70s [...] evaluation here. Apparently she is in a skilled nursing for rehab after a neck fracture. She does not have any collar or cervical spine hardware. EMS also states that family wasapparently there yesterday, and the skilled nursing staff was suspicious that they may be in the drugs. [facility] Medical History (Updated 02/18/23 @ 00:06 by [...] bisacodyl 10 mg rectal suppository 10 mg SC DAILY PRN 11/11/22 [History Last Taken Unknown] [...] 87.0 H Lymph % (Auto) 6.6 L Sheridan % (Auto) 3.6 Eos % (Auto) 0.2 [...] Sl. Cloudy Urine pH 5.0 Ur Specific [place] 1.030 Urine Protein 100 H Urine Glucose [...] (Auto) Neut % (Auto) Lymph % (Auto) Sheridan % (Auto) Eos % (Auto) Baso % [...] Color Urine Clarity Urine pH Ur Specific [place] Urine Protein Urine Glucose (UA) Urine Ketones [...] Management Discussion w/another healthcare provider: Hospitalist and Automated Cutting Machine Operator (javi mcgill) Procedures Intubations Intubation Method: orotracheal [...] pulmonary disease) Disposition Disposition: Acute Care Hospital [facility] What to do if you have Problems For any increased pain, shortness of breath, bleeding, nausea or vomiting, chestpain, or any unexpected problems, contact your Primary Care Provider. Call [facility] ([phone]) or report to the closest Emergency Room. Call 911 if necessary. 02/18/23 0019 <Electronically signed by Ellis Tsai MD> Cosigner Signature (if applicable): CC: ARLENE Carlisle ~ Signed [facility] Work Phone: [phone]) 865-734404-07-[address] Tsai [facility] February 18, 2023 12:19am Note Date/Time February 17, 2023 10:3 4pm [facility] Medical Records Department [address] [place] [address] Emergency Department Summary 02/17/23 MR#: [id number] Acct: [id number] Name: POLI RAMIREZ Isaac Rep #:[id number] : 1950 72 From: Ellis Tsai MD PCP: Barber Carlisle, BELLOWS CHARGER ASSEMBLER-Andrea Status:REG E R Location: ED HPI History of Present Illness Chief Complaint: Unresponsive Informant: EMS Narrative Narrative: Patient brought from local skilled nursing found unresponsive by skilled nursing staff. Barely breathing, hypoxic in the 70s [...] evaluation here. Apparently she is in a skilled nursing for rehab after a neck fracture. She does not have any collar or cervical spine hardware. EMS also states that family wasapparently there yesterday, and the skilled nursing staff was suspicious that they may be in the drugs. [facility] Medical History (Updated 02/18/23 @ 00:06 by [...] bisacodyl 10 mg rectal suppository 10 mg SC DAILY PRN 11/11/22 [History Last Taken Unknown] [...] 87.0 H Lymph % (Auto) 6.6 L Sheridan % (Auto) 3.6 Eos % (Auto) 0.2 [...] Sl. Cloudy Urine pH 5.0 Ur Specific [place] 1.030 Urine Protein 100 H Urine Glucose [...] (Auto) Neut % (Auto) Lymph % (Auto) Sheridan % (Auto) Eos % (Auto) Baso % [...] Color Urine Clarity Urine pH Ur Specific [place] Urine Protein Urine Glucose (UA) Urine Ketones [...] Management Discussion w/another healthcare provider: Hospitalist and Automated Cutting Machine Operator (javi mcgill) Procedures Intubations Intubation Method: orotracheal [...] obstructive pulmonary disease) Disposition Disposition: Acute Care [facility] What to do if you have Problems For any increased pain, shortness of breath, bleeding, nausea or vomiting, chestpain, or any unexpected problems, contact your Primary Care Provider. Call [facility] ([phone]) or report to the closest Emergency Room. Call 911 if necessary. 02/18/23 0019 <Electronically signed by Ellis Tsai MD> Cosigner Signature (if applicable): CC: ARLENE Carlisle ~ Signed [facility] Work Phone: 1(707) 845-595809-13-2022 Hospital Discharge instructions Patient Education 07/27/2022 11:52:16 [...] are safe for you. General instructions Take gwiy-nhy-imigvmz and prescription medicines only as told by [...] 09/17/2005 Document Revised: 10/13/2018 Document Reviewed: 08/04/2017 [employer]folio Patient Education 2020 [employer]. Follow Up Care 07/11/2022 11:22:15 With:[facility] [phone] skilled Address:Unknown When:1-2 days With:BARBER CARLISLE Address: [address] [facility] [place] [phone] Business (1) When:1-2 days With:BYRON STUBBS, TRACE Sprague, Neurosurgery Address: [address] [place] [address]- [phone] When:08/10/2022 11:00:00 [facility] 09-13-2022 Note Discharge Instructions Thank you for allowing [facility] to assist you with your healthcare needs. [...] results to FREDY Edmonds Neck Xray at [facility], Ground floor Radiology Dept on 08/10/2022 at 10:30am. After xray is completed, then go to Dr Matthews's office for follow-up appointment for re-evaluation and review of neck xray. Follow up appointment will be with Dr. Matthews's Nurse Practitioner, Renetta Astorga CNP. No aspirin, aspirin products, NSAIDS until [...] Op 08/10/2022 11:00 AM EDT Neurosurgery [address] [address] Follow Up Appointments Follow Up with BYRON STUBBS, TRACE Sprague, Neurosurgery When 08/10/2022 11:00 AM EDT Where: [address] [address] [phone] Follow Up with [facility] [phone] skilled When Within 1-2 days Follow Up with BARBER CARLISLE When Within 1-2 days Where: [address] [place] [address]- [phone] Business (1) The Following Activity and Diet [...] The extended-release form of oxycodone is for gaklmu-xnd-yejfy treatment of pain and should not be [...] against the law. Stop taking all other ryhroo-vwy-faqnj opioid pain medicines when you start taking [...] may report side effects to FDA at 2-362-FQM-7843. What other drugs will affect oxycodone? You [...] drugs may affect oxycodone. This includes prescription pfsikna-liq-kesayrl medicines, vitamins, and herbal products. Not all [...] to ensure that the information provided by [employer]. ('[employer]') is accurate, up-to-date, and complete, but no guarantee is made to that effect. Drug information contained herein may be time sensitive. [employer] information has been compiled for use by healthcare practitioners and consumers in the [place] and therefore [employer] does not warrant that uses outside of the [place] are appropriate, unless specifically indicated otherwise. [employer] drug information does not endorse drugs, diagnose patients or recommend therapy. [employer] drug information isan informational resource designed to [...] effective or appropriate for any given patient. [employer] does not assume any responsibility for any aspect of healthcare administered with the aid of information [employer] provides. The information contained herein is not intended to cover all possible uses, directions, precautions, warnings, drug interactions, allergic reactions, or adverse effects. If you have questions about the drugs you are taking, check with your doctor, nurse or pharmacist. Copyright 1245-0158 [employer]. Version: 14.. Revision Date: 12/11/2020. Education Materials Cervical Spine [...] are safe for you. General instructions Take yilz-low-eggvtsh and prescription medicines only as told by [...] 09/17/2005 Document Revised: 10/13/2018 Document Reviewed: 08/04/2017 Openfolio Patient Education 2020 Xit[employer]ix. Additional Information VACCINATE! IT SAVES LIVES! Members of the community who have not yet received the COVID-19 vaccine and would like to receive it can visit one of [facility] vaccine clinics. There are many vaccine clinic locations within the [facility]. For locations and available times, please visit https://[email or web address].[place].gov/. It is important to note that some COVID mobile vaccine clinics are held outdoors and may be canceled in rainy or stormy conditions. To learn more about pediatric vaccinations (ages 5-11), we invite you to visit the [facility] webpage. https://www.[facility].org/pages/4755-Mflkt-Ciivwthzmka-Lbwvjvbcbv-Hdjyq-Dbk stions.htmlTo learn more about the COVID-19 vaccine, we invite you to visit the [facility] website for a list of frequently asked questions. [email or web address]-[email or web address]/ffpsm-Qjlxrys-Gkjovtfzce _Asked-Questions.pdf [facility] Patient Portal Access Instructions: Stay connected with your healthcare team and access your personal medical information anytime with the [facility] [employer] Patient Portal.If you would like a full copy of your medical records, please contact the [facility] Medical Records Department, Tuesday through Tuesday between 8a.m. and 4:30p.m. Please follow the directions below to access the portal: 1.Access the email account you provided upon registration to the [facility].2.Look for an invitation email from [facility].3.Open the email and access the invitation link: Accept Invitation to [facility] [employer]4.Fill in the required quijano to create your account. Sign into [email or web address] with your username and password that you [...] you will allow to register on the [facility] [employer] Patient Portal for access to your information. You can also access the [facility] Patient Portal on the [employer] marcy. Simply click on "Health Records" under [...] Call your local pharmacy or go to http://bit.ly/2U4Pg8g to find one close to you.3.Make use of household items: Use cat litter or old coffee grounds to dispose medications if other options arenot available. Mix your drugs with these household products, seal them in an airtight container andthrow it into the garbage. Call [facility]: [phone] to be sure your drugs can be [...] that I should contact my d octor. Patient/Bar Back Signature: Date/Time: Relationship to Patient: Witness Name/Signature: Date/Time: [id number] Note Discharge Instructions Thank you for allowing [facility] to assist you with your healthcare needs. [...] results to FREDY Edmonds Neck Xray at [facility], Ground floor Radiology Dept on 08/10/2022 at 10:30am. After xray is completed, then go to Dr Matthews's office for follow-up appointment for re-evaluation and review of neck xray. Follow up appointment will be with Dr. Matthews's Nurse Practitioner, Renetta Astorga CNP. No aspirin, aspirin products, NSAIDS until [...] Op 08/10/2022 11:00 AM EDT Neurosurgery [address] [address] Follow Up Appointments Follow Up with BYRON STUBBS, TRACE Sprague, Neurosurgery When 08/10/2022 11:00 AM EDT Where: [address] [facility] [address] [place] [address] [phone] Follow Up with [facility] [phone] skilled When Within 1-2 days Follow Up with BARBER CARLISLE When Within 1-2 days Where: [address] [facility] [place] [address]- [phone] Business (1) The Following Activity and Diet [...] to receive it can visit one of [facility] vaccine clinics. There are many vaccine clinic locations within the [facility]. For locations and available times, please visit https://[email or web address].[place].gov/. It is important to note that some COVID mobile vaccine clinics are held outdoors and may be canceled in rainy or stormy conditions. To learn more about pediatric vaccinations (ages 5-11), we invite you to visit the [facility] webpage. https://www.[facility].org/pages/8953-Qupuf-Fligebetovu-Kscqwbqoca-Aojoi-Xfw stions.htmlTo learn more about the COVID-19 vaccine, we invite you to visit the [facility] website for a list of frequently asked questions. [email or web address]://[email or web address]/assets/Rarnwzxy-znr-Tdzpuuxc/uaphr-Kluumin-Vlqkxronax _Asked-Questions.pdf [facility] Patient Portal Access Instructions: Stay connected with your healthcare team and access your personal medical information anytime with the [facility] Patient Portal.If you would like a full copy of your medical records, please contact the [facility] Medical Records Department, Tuesday through Tuesday between 8a.m. and 4:30p.m. Please follow the directions below to access the portal: 1.Access the email account you provided upon registration to the [facility].2.Look for an invitation email from [facility].3.Open the email and access the invitation link: Accept Invitation to [facility]4.Fill in the required quijano to create your account. Sign into [email or web address] with your username and password that you [...] you will allow to register on the [facility] Patient Portal for access to your information. You can also access the [facility] Patient Portal on the [employer]. Simply click on "Health Records" under "INFERNO FITNESS NASHVILLEDaShenzhen Juc[employer]" and then click on the [employer] logo. HOW TO SAFELY DISPOSE OF PRESCRIPTION [...] Call your local pharmacy or go to http://Currently.[employer]ol[employer]inal Sciences/3C1Qu1n to find one close to you.3.Make use of household items: Use cat litter or old coffee grounds to dispose medications if other options arenot available. Mix your drugs with these household products, seal them in an airtight container andthrow it into the garbage. Call [facility]: [phone] to be sure your drugs can be [...] that I should contact my d octor. Patient/Bar Back Signature: Date/Time: Relationship to Patient: Witness Name/Signature: Date/Time: [facility] [id number] Note Discharge Instructions Thank you for allowing [facility] to assist you with your healthcare needs. [...] results to FREDY Edmonds Neck Xray at [facility], Ground floor Radiology Dept on 08/10/2022 at 10:30am. After xray is completed, then go to Dr Matthews's office for follow-up appointment for re-evaluation and review of neck xray. Follow up appointment will be with Dr. Matthews's Nurse Practitioner, Renetta Astorga CNP. No aspirin, aspirin products, NSAIDS until [...] Op 08/10/2022 11:00 AM EDT Neurosurgery [address] [address] Follow Up Appointments Follow Up with BYRON STUBBS, TRACE Sprague, Neurosurgery When 08/10/2022 11:00 AM EDT Where: [address] [address] [phone] Follow Up with [facility] [phone] skilled When Within 1-2 days Follow Up with BARBER CARLISLE When Within 1-2 days Where: [address] [place] [phone] Business (1) The Following Activity and Diet [...] to receive it can visit one of [facility] vaccine clinics. There are many vaccine clinic locations within the [facility]. For locations and available times, please visit [email or web address] It is important to note that some COVID mobile vaccine clinics are held outdoors and may be canceled in rainy or stormy conditions. To learn more about pediatric vaccinations (ages 5-11), we invite you to visit the [facility] webpage. [email or web address] learn more about the COVID-19 vaccine, we invite you to visit the [facility] website for a list of frequently asked questions. [email or web address] [facility] Patient Portal Access Instructions: Stay connected with your healthcare team and access your personal medical information anytime with the [facility].If you would like a full copy of your medical records, please contact the [facility] Medical Records Department, Tuesday through Tuesday between 8a.m. and 4:30p.m. Please follow the directions below to access the portal: 1.Access the email account you provided upon registration to the [facility].2.Look for an invitation email from [facility].3.Open the email and access the invitation link: Accept Invitation to [facility]4.Fill in the required quijano to create your account. Sign into [email or web address] with your username and password that you [...] you will allow to register on the [facility] Patient Portal for access to your information. You can also access the [facility] Patient Portal on the On[employer]. Simply click on "Health Records" under "HealthData" [...] Call your local pharmacy or go to [email or web address] to find one close to you.3.Make use of household items: Use cat litter or old coffee grounds to dispose medications if other options arenot available. Mix your drugs with these household products, seal them in an airtight container andthrow it into the garbage. Call [facility]: [phone] to be sure your drugs can be [...] that I should contact my d octor. Patient/Bar Back Signature: Date/Time: Relationship to Patient: Witness Name/Signature: Date/Time: [facility]ok[facility]qno97-[facility]-4700 Note Date of Service 07/26/2022 Neurosurgical CC: Unstable cervical spine injury, post repair POD #13, C2-C7 posterior cervical decompressive laminectomy and C2-T2 posterior cervical instrumented fusion Patient has no new complaints today. She is motivated to mobilize. She is asking when able to be discharged home. I explained she will need care home care, than goal with home-going. Admits to [...] worsening weakness, remains with slight weakness left stevedore hold strength and numbness in left hand. Weight [...] fracture of C6 with extension distraction fracture C6-C6diemx no change in alignment. XR Spine Cervical [...] discharge today Digitally Signed by NITA MADERA APRN-SILVINO on 07/26/2022 06:15 AM [facility] HospitalFwcqanrc69-28-9562 Note Date of Service 07/25/2022 Neurosurgical CC: Unstable cervical spine injury, post repair POD #12, C2-C7 posterior cervical decompressive laminectomy and C2-T2 posterior cervical instrumented fusion Patient remains in the hospital awaiting precertification for care home facility No acute events overnight. Patient has [...] fracture of C6 with extension distraction fracture C6-U5rbghj no change in alignment. XR Spine Cervical [...] as able Digitally Signed by NITA MADERA APRN-AERONAUTICS COMMISSION DIRECTOR on 07/25/2022 05:40 AM [facility] HospitalPxjbzuyu39-08-5719 Note Date of Service 07/23/2022 Patient reviewed [...] Result Date: July 15, 2022 Verified By: AMBER STUBBS, EDER Poe CLINICAL STATEMENT: IMPRESSION: No significant interval change, with persistent bibasilarinfiltrates/atelectasis and small left pleural effusion. I have personally reviewed the images of this examination, and agree withtheresident's findings and interpretation. XR Enteric Tube Placement Result Date: July 14, 2022 Verified By: ALDO ROMO MD CLINICAL STATEMENT: IMPRESSION: Appropriate positioning of [...] fracture of C6 with extension distraction fracture C6-S0ioezq no change in alignment. XR Chest 1 [...] the office visit Discussed case with licensed mortgage loan officer. Aware patient remains ready for discharge. Digitally Signed by NITA MADERA on 07/24/2022 11:41 AM [facility] HospitalVzuodbsz06-85-2985 Note Chief Complaint Pain Subjective Pain under [...] RUBIO MD FACP on 07/23/2022 04:02 PM [facility] HospitalOwxlvchb08-69-3628 Note Date of Service 07/23/2022 Patient reviewed [...] fracture of C6 with extension distraction fracture C6-L8tkldh no change in alignment. XR Spine Cervical [...] Discharge today Digitally Signed by NITA MADERA APRN-SILVINO on 07/23/2022 06:18 AM [facility] HospitalBfcvrabp55-45-5802 Note Date of Service 07/23/2022 Patient reviewed [...] fracture of C6 with extension distraction fracture C6-A1uhanz no change in alignment. XR Spine Cervical [...] Discharge today Digitally Signed by NITA MADERA APRN-SILVINO on 07/23/2022 06:18 AM [facility] HospitalWqdcqrnl04-73-3385 Note Chief Complaint hypotension Subjective Patient was [...] EDT Digitally Signed by FABIANO RUBIO MD FAC on 07/22/2022 08:16 PM [facility] [id number] Neurological surgery Progress note Date of Service Addendum by NITA MADERA on July 22, 2022 06:06:28 EDT (Verified) [...] Signature Line Digitally Signed by NITA MADERA APRN-AERONAUTICS COMMISSION DIRECTOR on 07/22/2022 09:55 AM [1] [1] Discharge Summary; ARYAN VAZ DEYSI-AERONAUTICS COMMISSION DIRECTOR 07/21/2022 07:15 EDT Digitally Signed by NITA MADERA APRN-AERONAUTICS COMMISSION DIRECTOR on 07/22/2022 09:56 AM [facility] HospitalVhvdjryp09-05-6921 Discharge summary Date of Service 07/21/2022 Discharge Diagnosis 1. S/P fall, resulting in C6-7 distraction injury with bilateral pedicle fractures ([id number] - [facility]) 2. S/P C2-C7 decompressive laminectomy, C2-T2 posterior bone screw/merari fixation and fusion ([id number] - [facility]) 3. DM2 (diabetes mellitus, type [...] and face. She was evaluated in the [facility] emergency department, where she was found to have a distraction extension fracture at C6/7 with bilateral pedicle fractures. She was taken to surgery on 07/13/2022 for a C2-C7 decompressive laminectomy and C2-T2 posterior bone screw/merari fixation and fusion. She did have some facial swelling from her fall, and therefore remained intubated post-op. She was extubated on post-op day #2 (07/15/2022). Please see Dr. Lerner's operative note for further details regarding the [...] She is ready to be discharged to [facility]. Her discharge instructions and restrictions been provided to [facility]. Her follow-up appointment has been arranged. Allergies NKA Procedures S/P C2 to C7 decompressive laminectomy, C2 to T2 posterior bone screw/merari fixation (Infinity; Medtronic) with autograft/allograft (Infuse; Medtronic) fusion with navigation and intraoperative SSEP, MEP and EMG monitoring- Consults Consult to Physician - Ordered -- 07/11/22 14:17:00 EDT, STEVENISTVAISHALI (For Consultation Assignment Only NO other Orders), Routine, surgical clearance, Please evaluate preop for clearance. Has distracted fracture c6-7 Consult to Physician - Ordered -- 07/11/22 17:23:00 EDT, SIMON SHIELDS MD, Routine, Other, Please follow medically while in SICU. Clearance for surgical intervention, C2-T3 fusion, acdf c6-7 Consult to Physician - Ordered -- 07/20/22 10:26:00 EDT, HOSPITALISTVAISHALI (For Consultation Assignment Only NO [...] Date: July 14, 2022 Verified By: ALDO ROMO MD CLINICAL STATEMENT: IMPRESSION: Appropriate positioning of [...] fracture of C6 with extension distraction fracture C6-M2ijojh no change in alignment. XR Chest 1 [...] be with Dr. Matthews's Nurse Practitioner, Renetta Astorga CNP. No aspirin, aspirin products, NSAIDS until [...] When 07/27/2022 09:30 AM EDT Where: [address] [place] [address]- [phone] Follow Up Appointments See above Follow Up [...] Score No qualifying data available. Discharge Disposition [facility] Information Provided To Patient and [facility] Time Spent 15 min Digitally Signed by ARYAN VAZ on 07/21/2022 08:46 AM Digitally Signed by TRACE MATTHEWS MD on 07/21/2022 11:25 AM [facility] HospitalAujngjoe85-52-9549 Discharge summary Date of Service 07/21/2022 Discharge Diagnosis 1. S/P fall, resulting in C6-7 distraction injury with bilateral pedicle fractures ([id number] - [facility]) 2. S/P C2-C7 decompressive laminectomy, C2-T2 posterior bone screw/merari fixation and fusion ([id number] - [facility]) 3. DM2 (diabetes mellitus, type [...] and face. She was evaluated in the [facility] emergency department, where she was found to have a distraction extension fracture at C6/7 with bilateral pedicle fractures. She was taken to surgery on 07/13/2022 for a C2-C7 decompressive laminectomy and C2-T2 posterior bone screw/merari fixation and fusion. She did have some facial swelling from her fall, and therefore remained intubated post-op. She was extubated on post-op day #2 (07/15/2022). Please see Dr. Lerner's operative note for further details regarding the [...] She is ready to be discharged to [facility]. Her discharge instructions and restrictions been provided to [facility]. Her follow-up appointment has been arranged. Allergies [...] Date: July 14, 2022 Verified By: ALDO ROMO MD CLINICAL STATEMENT: IMPRESSION: Appropriate positioning of [...] fracture of C6 with extension distraction fracture C6-B5mpcsl no change in alignment. XR Chest 1 [...] be with Dr. Matthews's Nurse Practitioner, Renetta Astorga CNP. No aspirin, aspirin products, NSAIDS until [...] When 07/27/2022 09:30 AM EDT Where: [address] [facility] [address] [place] [address]- [phone] Follow Up Appointments See above Follow Up [...] Score No qualifying data available. Discharge Disposition [facility] Information Provided To Patient and [facility] Time Spent 15 min Digitally Signed by ARYAN VAZ on 07/21/2022 08:46 AM Digitally Signed by TRACE MATTHEWS MD on 07/21/2022 11:25 AM [facility] HospitalRwafeyot81-20-1704 Discharge summary Date of Service 07/21/2022 Discharge Diagnosis 1. S/P fall, resulting in C6-7 distraction injury with bilateral pedicle fractures ([id number] - [facility]) 2. S/P C2-C7 decompressive laminectomy, C2-T2 posterior bone screw/merari fixation and fusion ([id number] - [facility]) 3. DM2 (diabetes mellitus, type [...] and face. She was evaluated in the [facility] emergency department, where she was found to have a distraction extension fracture at C6/7 with bilateral pedicle fractures. She was taken to surgery on 07/13/2022 for a C2-C7 decompressive laminectomy and C2-T2 posterior bone screw/merari fixation and fusion. She did have some facial swelling from her fall, and therefore remained intubated post-op. She was extubated on post-op day #2 (07/15/2022). Please see Dr. Lerner's operative note for further details regarding the [...] She is ready to be discharged to [facility]. Her discharge instructions and restrictions been provided to [facility]. Her follow-up appointment has been arranged. Allergies [...] Result Date: July 15, 2022 Verified By: AMBER STUBBS, EDER Poe CLINICAL STATEMENT: IMPRESSION: No significant interval change, with persistent bibasilarinfiltrates/atelectasis and small left pleural effusion. I have personally reviewed the images of this examination, and agree withtheresident's findings and interpretation. XR Enteric Tube Placement Result Date: July 14, 2022 Verified By: ALDO ROMO MD CLINICAL STATEMENT: IMPRESSION: Appropriate positioning of [...] fracture of C6 with extension distraction fracture C6-O5ahsgu no change in alignment. XR Chest 1 [...] (Oral) HR: 99(Monitored) RR: 18 BP: 114/51 SpO2:95% Weight Dosing Weight: 98.7 kg (07/13/22) Dosing Weight: 98.7 kg (07/11/22) Code Status Code Status - Ordered -- 07/11/22 17:23:00 EDT, Full Code, Constant Order Admission Date 07/11/2022 Discharge Date 07/21/2022 Patient Instructions Follow up appointment will be with Dr. Matthews's Nurse Practitioner, Renetta Astorga CNP. No aspirin, aspirin products, NSAIDS until [...] When 07/27/2022 09:30 AM EDT Where: [address] [facility] [address] [place] [address]- [phone] Follow Up Appointments See above Follow Up [...] Score No qualifying data available. Discharge Disposition [facility] Information Provided To Patient and [facility] Time Spent 15 min Digitally Signed by ARYAN VAZ on 07/21/2022 08:46 AM Digitally Signed by TRACE MATTHEWS MD on 07/21/2022 11:25 AM [facility] HospitalBbqktygz05-58-3697 Note Date of Service 07/21/22 Chief Complaint Weakness Subjective Patient is a very pleasant 71-year-old female with a past medical history significant for hypertension, obesity, hyperlipidemia, COPD, severe restrictive airway disease follows with [facility]ology, noninsulin-dependent type 2 diabetes, venous insufficiency, goiter, GERD, chronic back pain and hypoxic respiratory failure wearing 2 L oxygen via nasal cannula continuous at home. Patient originally presented to [facility] emergency department on July 11, 2022. Patient sustained a mechanical fall over her walker landing on the left side of her face. [facility]. Patient was noted to have significant cervical spine injury and transferred to [facility] emergency department for further evaluation. 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 Patient was admitted under neurosurgery services and admitted to the intensive care unit. On July 13, 2022 patient underwent C2 to C7 decompressive laminectomy, C2to T2 posterior bone screw/merari fixation and fusion by Dr. Lerner. Patient has been successfully weaned to baseline [...] hrs)__ Last Charted Minimum Maximum Temp 35.9(JUL 21 13:01) 35.9(JUL 21:) 35.9(JUL 21 13:) Heart Rate 97(JUL 21 13:01) 90(JUL 21 07:35) 99(JUL 21 00:06) Resp Rate 18(JUL 21 13:) 18(JUL 20 15:30) 20(JUL 20 19:50) SBP 114(JUL 21 13:01) 114(JUL 21 03:43) 139(JUL 20 19:50) DBP 76(JUL 21 13:01) L 51(JUL 21 03:43) 76(JUL 21 13:01) Physical Exam General: No acute distress. Alert [...] patient's primary care physician covering provider at care home facility. Continue home medication. Blood glucose checks [...] therapy involved. Recommending patient be discharged to care home facility. Patient is agreeable to discharge to care home facility. Discharge per primary team. At this [...] by JOANNA TOMLINSON on 07/21/2022 02:49 PM [facility] HospitalRejuttgj12-67-7851 Discharge summary Date of Service 07/21/2022 Discharge Diagnosis 1. S/P fall, resulting in C6-7 distraction injury with bilateral pedicle fractures ([id number] - [facility]) 2. S/P C2-C7 decompressive laminectomy, C2-T2 posterior bone screw/merari fixation and fusion ([id number] - [facility]) 3. DM2 (diabetes mellitus, type [...] and face. She was evaluated in the [facility] emergency department, where she was found to have a distraction extension fracture at C6/7 with bilateral pedicle fractures. She was taken to surgery on 07/13/2022 for a C2-C7 decompressive laminectomy and C2-T2 posterior bone screw/merari fixation and fusion. She did have some facial swelling from her fall, and therefore remained intubated post-op. She was extubated on post-op day #2 (07/15/2022). Please see Dr. Lerner's operative note for further details regarding the [...] She is ready to be discharged to [facility]. Her discharge instructions and restrictions been provided to [facility]. Her follow-up appointment has been arranged. Allergies [...] Physician - Ordered -- 07/20/22 10:26:00 EDT, HOSPITALISTVAISHALI (For Consultation Assignment Only NO [...] Date: July 14, 2022 Verified By: ALDO ROMO MD CLINICAL STATEMENT: IMPRESSION: Appropriate positioning of [...] fracture of C6 with extension distraction fracture C6-E3tpnig no change in alignment. XR Chest 1 [...] be with Dr. Matthews's Nurse Practitioner, Renetta Astorga CNP. No aspirin, aspirin products, NSAIDS until [...] When 07/27/2022 09:30 AM EDT Where: [address] [place] [address]- [phone] Follow Up Appointments See above Follow Up [...] Score No qualifying data available. Discharge Disposition [facility] Information Provided To Patient and [facility] Time Spent 15 min Digitally Signed by ARYAN VAZ on 07/21/2022 08:46 AM Digitally Signed by TRACE MATTHEWS MD on 07/21/2022 11:25 AM [facility] HospitalOzhkhqdw93-11-0264 Note Date of Service 07/20/22 Reason for Consultation Medical management Referring Physician Dr. Matthews History of Present Illness Patient is a very pleasant 71-year-old female with a past medical history significant for hypertension, obesity, hyperlipidemia, COPD, severe restrictive airway disease follows with [facility], noninsulin-dependent type 2 diabetes, venous insufficiency, goiter, GERD, chronic back pain and hypoxic respiratory failure wearing 2 L oxygen via nasal cannula continuous at home. Patient originally presented to [facility] emergency department on July 11, 2022. Patient sustained a mechanical fall over her walker landing on the left side of her face. [facility]. Patient was noted to have significant cervical spine injury and transferred to [facility] emergency department for further evaluation. 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 Patient was admitted under neurosurgery services and admitted to the intensive care unit. On July 13, 2022 patient underwent C2 to C7 decompressive laminectomy, C2to T2 posterior bone screw/merari fixation and fusion by Dr. Lerner. Patient has been successfully weaned to baseline [...] patient's primary care physician covering provider at care home facility. Continue home medication. Blood glucose checks TID. Sliding scale TID ADA diet Glycemic goal <180 Hypokalemia- resolved. Repeat BMP reviewed. Chronic hypoxic respiratory failure. Patient is tolerating oxygen via nasal cannula. 2 L which is baseline. Acute E. coli urinary tract infection. Patient has completed a full course of ceftriaxone Therapy and occasional therapy consult. Recommending patient be discharged to care home facility. Patient is agreeable to discharge to care home facility. Discharge per primary team. At this [...] by JOANNA TOMLINSON on 07/20/2022 01:37 PM [facility] HospitalNmtbkhzr16-65-6569 Neurological surgery Progress note Date of Service 07/20/2022 Chief Complaint S/P C2 to C7 decompressive laminectomy, C2 to T2 posterior bone screw/merari fixation (Infinity; Medtronic) with autograft/allograft (Infuse; Medtronic) fusion with navigation and intraoperative SSEP, MEP and EMG vsethsrkww-qjdm-ve day #7. This is a 71-year-old female, who sustained an unstable C6-7 fracture/dislocation status post falling over her walker and landing on the left side of her body and face. She was evaluated in the [facility] emergency department, where she was found to [...] min Digitally Signed by ARYAN VAZ on 07/20/2022 10:28 AM Digitally Signed by TRACE MATTHEWS MD on 07/20/2022 10:34 AM [facility] HospitalEvsgnltz87-83-1934 Progress note Date of Service July 19, [...] TRACE MATTHEWS MD on 07/19/2022 09:14 AM [facility] HospitalSvslyrio70-86-4120 Note Date of Service 07/18/2022 Split/shared visit with Dr Lerner Neurosurgery CC: C6-7 distraction injury with bilateral [...] awaiting completion of this test. Per Dr Lerner, now that patient is day 5 post-op, she is cleared to begin chemical DVT prophylaxis, ie heparin SQ injections. Per Dr Lerner, may discontinue HASMUKH drain #2 today. Keep HASMUKH drain #[address] HASMUKH Continue prophylactic antibiotics with drain intact. PT/OT evaluations completed, have provided recommendations for skilled rehab. SERVICE ATTENDANT to assist with discharge planning. ICU team following for medical and pulmonary management; appreciate their support and assistance incare of patient. Please refer to Dr. Mccallum's addendum for further details. [1] VL Venous US/Doppler Both Legs(for DVT); 07/18/2022 11:00 EDT Digitally Signed by PELON RUIZ on 07/18/2022 04:44 PM [facility] HospitalXeunoxjn17-81-2187 Note Date of Service 07/18/2022 Split/shared visit with Dr Lerner Neurosurgery CC: C6-7 distraction injury with bilateral [...] bedside to assist with this. Remains in Shailni brace. She has been compliant with use [...] awaiting completion of this test. Per Dr Lerner, now that patient is day 5 post-op, she is cleared to begin chemical DVT prophylaxis, ie heparin SQ injections. Per Dr Lerner, may discontinue HASMUKH drain #2 today. Keep HASMUKH drain #[address] HASMUKH Continue prophylactic antibiotics with drain intact. PT/OT evaluations completed, have provided recommendations for skilled rehab. SERVICE ATTENDANT to assist with discharge planning. ICU team following for medical and pulmonary management; appreciate their support and assistance incare of patient. Please refer to Dr. Mccallum's addendum for further details. [1] VL Venous US/Doppler Both Legs(for DVT); 07/18/2022 11:00 EDT Digitally Signed by PELON RUIZ on 07/18/2022 04:44 PM [facility] HospitalEzubblaj19-02-9455 Note Date of Service 07/18/2022 Split/shared visit with Dr Lerner Neurosurgery CC: C6-7 distraction injury with bilateral [...] awaiting completion of this test. Per Dr Lerner, now that patient is day 5 post-op, she is cleared to begin chemical DVT prophylaxis, ie heparin SQ injections. Per Dr Lerner, may discontinue HASMUKH drain #2 today. Keep HASMUKH drain #[address] HASMUKH Continue prophylactic antibiotics with drain intact. PT/OT evaluations completed, have provided recommendations for skilled rehab. SERVICE ATTENDANT to assist with discharge planning. ICU team following for medical and pulmonary management; appreciate their support and assistance incare of patient. Please refer to Dr. Mccallum's addendum for further details. [1] VL Venous US/Doppler Both Legs(for DVT); 07/18/2022 11:00 EDT Digitally Signed by PELON RUIZ on 07/18/2022 04:44 PM [facility] HospitalGiscevmr50-09-9736 Note Date of Service 07/18/2022 Split/shared visit with Dr Lerner Neurosurgery CC: C6-7 distraction injury with bilateral [...] awaiting completion of this test. Per Dr Lerner, now that patient is day 5 post-op, she is cleared to begin chemical DVT prophylaxis, ie heparin SQ injections. Per Dr Lerner, may discontinue HASMUKH drain #2 today. Keep HASMUKH drain #[address] HASMUKH Continue prophylactic antibiotics with drain intact. PT/OT evaluations completed, have provided recommendations for skilled rehab. SERVICE ATTENDANT to assist with discharge planning. ICU team following for medical and pulmonary management; appreciate their support and assistance incare of patient. Please refer to Dr. Mccallum's addendum for further details. [1] VL Venous US/Doppler Both Legs(for DVT); 07/18/2022 11:00 EDT Digitally Signed by PELON RUIZ on 07/18/2022 04:44 PM [facility] HospitalZnjfiicw52-83-4641 Note Date of Service 07/18/22 Subjective This [...] for prophylaxis due to HASMUKH drain 7. Added bowel regimen 8. Activity/diet as tolerated Time Spent 20 minutes. Stable for transfer out of ICU from critical care standpoint Digitally Signed by KENY VARGAS MD on 07/18/2022 08:05 AM [facility] HospitalGuperpkr44-70-1346 Note Date of Service 07/17/2022 Split/shared visit with Dr Lerner Neurosurgery CC: C6-7 distraction injury with bilateral pedicle fractures s/p Fall S/P C2-C7 decompressive laminectomy, C2-T2 posterior bone screw/merari fixation and fusion Patient is POD #4 from above procedure by Dr Lerner. She has has remained in the surgical [...] 1 mL, IV Push, q4h Lab Results /02 16:16 WBC: 7.0 Hgb: 8.3 L Hct: [...] lower extremities for assessment of possible DVT/SVT. Barrel Painter following for medical and pulmonary management; appreciate their support and assistancein care of patient. Please refer to Dr. Mccallum's addendum for further details. Dr Lerner like patient to remain in ICU until Doppler ultrasounds have been completed. Further instructions will be provided at that time. Digitally Signed by PELON RUIZ on 07/17/2022 11:16 AM [facility]wwlbnjz29[facility]-9604 Note Date of Service 07/17/22 Subjective This [...] KENY VARGAS MD on 07/17/2022 08:39 AM [facility]Kmmufwgg04-50-6992 Note Date of Service 07/17/2022 Split/shared visit with Dr Lerner Neurosurgery CC: C6-7 distraction injury with bilateral pedicle fractures s/p Fall S/P C2-C7 decompressive laminectomy, C2-T2 posterior bone screw/merari fixation and fusion Patient is POD #4 from above procedure by Dr Lerner. She has has remained in the surgical [...] lower extremities for assessment of possible DVT/SVT. Barrel Painter following for medical and pulmonary management; appreciate their support and assistancein care of patient. Please refer to Dr. Mccallum's addendum for further details. Dr Lerner like patient to remain in ICU until Doppler ultrasounds have been completed. Further instructions will be provided at that time. Digitally Signed by PELON RUIZ on 07/17/2022 11:16 AM [facility] HospitalItyrfpwn53-17-7864 Neurological surgery Progress note Date of Service 07/16/2022 Chief Complaint S/P C2 to C7 decompressive laminectomy, C2 to T2 posterior bone screw/merari fixation (Infinity; Medtronic) with autograft/allograft (Infuse; Medtronic) fusion with navigation and intraoperative SSEP, MEP and EMG mlneyragsr-wxhl-xx day #3. This is a 71-year-old female, who sustained an unstable C6-7 fracture/dislocation status post falling over her walker and landing on the left side of her body and face. She was evaluated in the [facility] emergency department, where she was found to [...] times. -Likely transfer to stepdown tomorrow. Dr. Lerner would prefer to wait 5 days post-op to start chemical DVT prophylaxis. Will obtain LE dopplars on Tuesday and then likely clear patient to start Heparin sq. -In meantime continue SCDS. -Continue measuring thigh and calf bilateral twice a day and if increases in size by 1cm neurosurgery to be notified to further evaluate. Barrel Painter following for medical and pulmonary management. Time Spent 15 min Digitally Signed by ARYAN VAZ on 07/16/2022 12:12 PM [facility]Cjseiknq56-76-8155 Neurological surgery Progress note Date of Service 07/16/2022 Chief Complaint S/P C2 to C7 decompressive laminectomy, C2 to T2 posterior bone screw/merari fixation (Infinity; Medtronic) with autograft/allograft (Infuse; Medtronic) fusion with navigation and intraoperative SSEP, MEP and EMG cuqftoyqcj-fggn-jh day #3. This is a 71-year-old female, who sustained an unstable C6-7 fracture/dislocation status post falling over her walker and landing on the left side of her body and face. She was evaluated in the [facility] emergency department, where she was found to [...] times. -Likely transfer to stepdown tomorrow. Dr. Lerner would prefer to wait 5 days post-op to start chemical DVT prophylaxis. Will obtain LE dopplars on Tuesday and then likely clear patient to start Heparin sq. -In meantime continue SCDS. -Continue measuring thigh and calf bilateral twice a day and if increases in size by 1cm neurosurgery to be notified to further evaluate. Barrel Painter following for medical and pulmonary management. Time Spent 15 min Digitally Signed by ARYAN VAZ on 07/16/2022 12:12 PM [facility] HospitalGtoljtxr71-12-6309 Note Date of Service 07/16/2022 Chief Complaint [...] C2C3 so that patient was transferred to [facility] where she was evaluated per neurosurgery [...] ANNE-MARIE MCGRAW MD on 07/16/2022 09:57 AM [facility] HospitalCbeyufen28-46-1468 Neurological surgery Progress note Date of Service 07/14/2022 Chief Complaint S/P C2 to C7 decompressive laminectomy, C2 to T2 posterior bone screw/merari fixation (Infinity; Medtronic) with autograft/allograft (Infuse; Medtronic) fusion with navigation and intraoperative SSEP, MEP and EMG ynleoobqpx-tuvq-lz day #1. This is a 71-year-old female, who sustained an unstable C6-7 fracture/dislocation status post falling over her walker and landing on the left side of her body and face. She was evaluated in the [facility] emergency department, where she was found to have a distraction extension fracture at C6/7 with bilateral pedicle fractures. She was [facility] for [facility] evaluation. Shewas taken to surgery yesterday for a C2-C7 decompressive laminectomy and C2-T2 posterior bone screw/merari fixation and fusion. She does have facial swelling, and therefore remains intubated. Barrel Painter plan to keep patient intubated today and [...] No edema noted Neurological: See HPI Skin: [place], warm, and dry. Psychiatric: Mood stable. Cooperative. [...] Date: July 14, 2022 Verified By: ALDO ROMO MD CLINICAL STATEMENT: IMPRESSION: Appropriate positioning of [...] fracture of C6 with extension distraction fracture C6-R5ugiqw no change in alignment. XR Chest 1 [...] be extubated tomorrow and can start PT/OT. Barrel Painter following for medical and pulmonary management. Time Spent 15 min Digitally Signed by ARYAN VAZ on 07/14/2022 11:59 AM [facility] HospitalPdobdkjo02-79-2513 Neurological surgery Progress note Date of Service 07/15/2022 Chief Complaint S/P C2 to C7 decompressive laminectomy, C2 to T2 posterior bone screw/merari fixation (Infinity; Medtronic) with autograft/allograft (Infuse; Medtronic) fusion with navigation and intraoperative SSEP, MEP and EMG xngsvbqmwa-uqak-wc day #2. This is a 71-year-old female, who sustained an unstable C6-7 fracture/dislocation status post falling over her walker and landing on the left side of her body and face. She was evaluated in the [facility] emergency department, where she was found to [...] -Start PT/OT with Shalini brace on. Dr. Lerner would prefer to wait 5 days post-op to start chemical DVT prophylaxis. She still has HASMUKH drains in place which are draining a fair amount. -In meantime continue SCDS. -Will have nursing measuring thigh and calf bilateral twice a day and if increases in size by 1cm neurosurgery to be notified to further evaluate. Barrel Painter following for medical and pulmonary management. Time Spent 15 min Digitally Signed by ARYAN VAZ on 07/15/2022 01:20 PM [facility] HospitalZzwxgbre98-98-3775 Neurological surgery Progress note Date of Service 07/14/2022 Chief Complaint S/P C2 to C7 decompressive laminectomy, C2 to T2 posterior bone screw/merari fixation (Infinity; Medtronic) with autograft/allograft (Infuse; Medtronic) fusion with navigation and intraoperative SSEP, MEP and EMG xkolgbdxyx-ccxw-ok day #1. This is a 71-year-old female, who sustained an unstable C6-7 fracture/dislocation status post falling over her walker and landing on the left side of her body and face. She was evaluated in the [facility] emergency department, where she was found to have a distraction extension fracture at C6/7 with bilateral pedicle fractures. She was transferred to [facility] for [facility] evaluation. Shewas taken to surgery yesterday for a C2-C7 decompressive laminectomy and C2-T2 posterior bone screw/merari fixation and fusion. She does have facial swelling, and therefore remains intubated. Barrel Painter plan to keep patient intubated today and [...] No edema noted Neurological: See HPI Skin: [place], warm, and dry. Psychiatric: Mood stable. Cooperative. [...] Date: July 14, 2022 Verified By: ALDO ROMO MD CLINICAL STATEMENT: IMPRESSION: Appropriate positioning of [...] fracture of C6 with extension distraction fracture C6-V4nfqir no change in alignment. XR Chest 1 [...] be extubated tomorrow and can start PT/OT. Barrel Painter following for medical and pulmonary management. Time Spent 15 min Digitally Signed by ARYAN VAZ on 07/14/2022 11:59 AM [facility] HospitalAnddtkta43-90-9529 Neurological surgery Progress note Date of Service 07/15/2022 Chief Complaint S/P C2 to C7 decompressive laminectomy, C2 to T2 posterior bone screw/merari fixation (Infinity; Medtronic) with autograft/allograft (Infuse; Medtronic) fusion with navigation and intraoperative SSEP, MEP and EMG lwctftewue-jqzj-tv day #2. This is a 71-year-old female, who sustained an unstable C6-7 fracture/dislocation status post falling over her walker and landing on the left side of her body and face. She was evaluated in the [facility] emergency department, where she was found to [...] -Start PT/OT with Shalini brace on. Dr. Khosrovi would prefer to wait 5 days post-op to start chemical DVT prophylaxis. She still has HASMUKH drains in place which are draining a fair amount. -In meantime continue SCDS. -Will have nursing measuring thigh and calf bilateral twice a day and if increases in size by 1cm neurosurgery to be notified to further evaluate. Barrel Painter following for medical and pulmonary management. Time Spent 15 min Digitally Signed by ARYAN VAZ on 07/15/2022 01:20 PM [facility] HospitalIwlrhjvl66-09-3420 Note Date of Service 07/15/2022 Subjective 71 [...] C2C3 so that patient was transferred to [facility] where she was evaluated per neurosurgery [...] line and evaluate for possible removal of Stephens catheter. 7. Physical therapy service will also be consulted. 8. Lab data in the morning CBC and basic metabolic profile Time Spent Critical care medicine 30 minutes Digitally Signed by DARLING EDWARDS MD on 07/15/2022 08:56 AM [facility] HospitalMjqfchqv42-26-1487 Note ORIGINAL EXAMINATION: ONE XRAY VIEW OF [...] Sign Date: 07/15/2022 6:01:36 AM Ordering Provider: OSEI STOVER [facility] HospitalSmdkyztf37-82-1943 Note ORIGINAL EXAMINATION: ONE XRAY VIEW OF [...] Sign Date: 07/15/2022 6:01:36 AM Ordering Provider: [facility]08-31-2022 Neurological surgery Progress note Date of Service 07/14/2022 Chief Complaint S/P C2 to C7 decompressive laminectomy, C2 to T2 posterior bone screw/merari fixation (Infinity; Medtronic) with autograft/allograft (Infuse; Medtronic) fusion with navigation and intraoperative SSEP, MEP and EMG wxepxrqidx-msyu-ru day #1. This is a 71-year-old female, who sustained an unstable C6-7 fracture/dislocation status post falling over her walker and landing on the left side of her body and face. She was evaluated in the [facility] emergency department, where she was found to have a distraction extension fracture at C6/7 with bilateral pedicle fractures. She was transferred to [facility] for Neurosurgery evaluation. Shewas taken to surgery yesterday for a C2-C7 decompressive laminectomy and C2-T2 posterior bone screw/merari fixation and fusion. She does have facial swelling, and therefore remains intubated. Barrel Painter plan to keep patient intubated today and [...] No edema noted Neurological: See HPI Skin: [place], warm, and dry. Psychiatric: Mood stable. Cooperative. [...] Date: July 14, 2022 Verified By: ALDO ROMO MD CLINICAL STATEMENT: IMPRESSION: Appropriate positioning of [...] fracture of C6 with extension distraction fracture C6-O7fobob no change in alignment. XR Chest 1 [...] Date: July 12, 2022 Verified By: GRETCHEN ATYLOR MD CLINICAL STATEMENT: IMPRESSION: No significant change [...] be extubated tomorrow and can start PT/OT. Barrel Painter following for medical and pulmonary management. Time Spent 15 min Digitally Signed by ARYAN VAZ on 07/14/2022 11:59 AM [facility] HospitalAwqqgzsh44-00-4467 Note ORIGINAL EXAMINATION: ONE SUPINE XRAY VIEW(S) [...] of the OG tube. Interpreted by: Aldo Romo MD Preliminary Report By: Aldo Romo MD Electronically signed By Aldo Romo MD Dictated Date: 07/14/2022 9:39:43 AM Prelim Date: 07/14/2022 9:41:47 AM Sign Date: 07/14/2022 9:41:47 AM Ordering Provider: [facility]08-31-2022 Note ORIGINAL EXAMINATION: ONE SUPINE XRAY [...] of the OG tube. Interpreted by: Aldo Romo MD Preliminary Report By: Aldo Romo MD Electronically signed By Aldo Romo MD Dictated Date: 07/14/2022 9:39:43 AM Prelim Date: 07/14/2022 9:41:47 AM Sign Date: 07/14/2022 9:41:47 AM Ordering Provider: [facility]08-31-2022 Note Date of Service 07/14/2022 Chief Complaint [...] C2C3 so that patient was transferred to [facility] where she was evaluated per neurosurgery [...] ANNE-MARIE MCGRAW MD on 07/16/2022 09:53 AM [facility] HospitalGcrpjpoy76-38-8743 Note ORIGINAL EXAMINATION: CT OF THE CERVICAL [...] 07/14/2022 6:52:00 AM Ordering Provider: NITA MADERA [facility] HospitalZdxfozvg42-41-3055 Note ORIGINAL EXAMINATION: ONE XRAY VIEW OF [...] Sign Date: 07/14/2022 6:00:18 AM Ordering Provider: [facility]08-31-2022 Note ORIGINAL EXAMINATION: ONE XRAY VIEW OF [...] Sign Date: 07/14/2022 6:00:18 AM Ordering Provider: [facility]08-31-2022 Note ORIGINAL EXAMINATION: CT OF THE CERVICAL [...] Sign Date: 07/14/2022 6:52:00 AM Ordering Provider: [facility]08-31-2022 Note ORIGINAL EXAMINATION: SPOT FLUOROSCOPIC IMAGES 07/13/2022 [...] Date: 07/14/2022 4:26:28 AM Ordering Provider: MARYCHUY LERNER [facility] HospitalHicaouto17-80-2832 Note ORIGINAL EXAMINATION: ONE XRAY VIEW OF [...] Date: 07/13/2022 9:06:27 PM Ordering Provider: [place] COOL [facility] HospitalHcukyauq24-84-0786 Note ORIGINAL EXAMINATION: ONE XRAY VIEW OF [...] Sign Date: 07/13/2022 9:06:27 PM Ordering Provider: [facility]08-30-2022 Note ORIGINAL EXAMINATION: SPOT FLUOROSCOPIC IMAGES 07/13/2022 [...] Date: 07/14/2022 4:26:28 AM [facility]ing [facility] Note Date of Service 07/13/2022 Split/shared visit with Dr. Jaswant MD Neurosurgical CC: Unstable C6-7 fracture or dislocation post fall. C2-C3 stenosis with cervical myelopathy Patient is a 71-year-old female who was brought to [facility] via EMS after sustaining a fall over her walker landing on her left side and face on 07/11/2022. 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 Patient transferred to [facility] ED. Stat MRI completed and patient admitted to the surgical ICU by Dr. Matthews Patient was initially planned for ACDF C6-C7 and plating C5-T1 by Dr. Matthews on 07/12/2022. Dr. Matthews canceled surgery. Dr. Lerner met with patient yesterday and plans to [...] with weakness of the left tricep/bicep and stevedore hold. Negative Pierre's. She does have 3 beats [...] She has remained n.p.o. after midnight. She did tolerate small amount of food yesterday afternoon/evening without [...] pain post fall. She was taken to [facility] by EMS found to have cervical spine injury and transferred to [facility] ED. Stat MRI completed and patient was admitted to the surgical ICU by Dr. 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 Lerner has assumed care of the patient and [...] relaxers as needed Please refer to Dr. Lerner's addendum [1] Progress Note; NITA MADERA 07/12/2022 05:43 EDT Digitally Signed by NITA MADERA on 07/13/2022 05:50 AM [facility] HospitalGmsvfxla58-26-5767 Note ORIGINAL EXAMINATION: TWO XRAY VIEWS OF [...] is not clearly identified. Interpreted by: Richar Passerini, MD Preliminary Report By: Richar Hassan MD Electronically signed By Richar Hassan MD Dictated Date: 07/13/2022 3:44:17 PM Prelim Date: 07/13/2022 3:47:11 PM Sign Date: 07/13/2022 3:47:11 PM Ordering Provider: [facility]08-30-2022 Note ORIGINAL EXAMINATION: TWO XRAY VIEWS OF [...] Sign Date: 07/13/2022 3:47:11 PM Ordering Provider: [facility]08-30-2022 Anesthesiology Consult note Patient: POLI RAMIREZ Age: [...] a prior cardiac history including a previous [facility], however, she has not had any interventions, [...] Constipation NS 1,000 mL: 50 mL/hr, Intravenous [place] 325- 5 mg oral tablet: 1 tab(s), [...] list: Medical Chronic anemia / SNOMED CT 123131494 / Confirmed Chronic back pain / SNOMED CT 305869318 / Confirmed COPD / SNOMED CT 30174244 / Confirmed Hypertension, essential / SNOMED CT 55415068 / Confirmed GERD (gastroesophageal reflux disease) / SNOMED CT [id number] / Confirmed Goiter / SNOMED CT 1719526 / Confirmed Hyperlipidemia / SNOMED CT 87567340 / Confirmed Incontinence of urine / SNOMED CT 6840285490 / Confirmed, Active Problems (30) Anemia Arthritis [...] incontinence Histories Past Medical History: Active COPD (33731422) Chronic back pain (134676196) Resolved H/O hypercholesterolemia (4937572476): Resolved. Hypernatremia (2373981408): Resolved. Family History: Heart disease Father Brother Arthritis Daughter Stroke Mother Cancer Sister HTN - Hypertension Mother GERD (gastroesophageal reflux disease) Daughter Diverticulitis Daughter Procedure history: None (929387325). Appendectomy (402829141). Comments: 08/11/2017 12:13 SHAMA BOLTON left water taken off Tubal ligation (378815341). Cholecystectomy (12807377). Arthroscopic knee operation (5591281290). Comments: 12/24/2019 13:16 SHAMA Gabriel right Lumpectomy of breast (1142114662). Comments: 12/24/2019 13:16 SHAMA Gabriel left Phacoemulsification of cataract with intraocular lens implantation (6164592230). Comments: 12/24/2019 13:16 SHAMA Gabriel both eyes Colonoscopy (204096312). Esophagogastroduodenoscopy (040172636). Cardiac catheter (4275893905). Comments: 12/24/2019 13:17 SHAMA Gabriel years ago [...] kg (Modified) Weight Lbs 217.1 lb (Modified) [place] Body Weight 56.91 kg BSA Admission 2.05 [...] On and Limits Checked Nail Bed Color [place] Capillary Refill < 2 seconds Heart Sounds [...] grimaces Skin Symptoms Bruising All Extremity Description [place] Skin Temperature Warm Temperature All Extremities Warm Skin Description [place], Normal for ethnicity Skin Integrity Not intact Skin Turgor Non-Elastic Mucous Membrane Color [place] Mucous Membrane Description Moist Nose Anterior Skin [...] Arousable with minimal stimulation Eye Opening Response Radnor To voice Best Motor Response Zeke Obeys simple commands Best Verbal Response Radnor Oriented Zeke Coma Score 14 YANICK Yes [...] Appropriate, Calm, Cooperative Orientation Oriented x 4 Penology Teacher On Yes Patient Dressed In Hospital gown [...] On and Limits Checked Nail Bed Color [place] Capillary Refill < 2 seconds Heart Sounds ICU S1S2 Heart Rhythm Regular Dorsalis Pedis Pulse, Left 1+ Thready Dorsalis Pedis Pulse, Right 1+ Thready Posttibial Pulse, Left 1+ Thready Posttibial Pulse, Right 1+ Thready Radial Pulse, Left 2+ Normal Radial Pulse, Right 2+ Normal Edema Generalized None Cardiac Rhythm Sinus tachycardia Monitoring Lead II, V1/MCL1 SC Interval 0.16 second(s) QRS Duration 0.09 second(s) [...] grimaces Skin Symptoms Bruising All Extremity Description [place] Skin Temperature Warm Temperature All Extremities Warm Skin Description [place], Normal for ethnicity Skin Integrity Not intact Skin Turgor Non-Elastic Mucous Membrane Color [place] Mucous Membrane Description Moist Nose Anterior Skin [...] Arousable with minimal stimulation Eye Opening Response Radnor To voice Best Motor Response Zeke Obeys simple commands Best Verbal Response Zeke Oriented Radnor Coma Score 14 YANICK Yes Left Pupil [...] On and Limits Checked Nail Bed Color [place] Capillary Refill < 2 seconds Heart Sounds [...] grimaces Skin Symptoms Bruising All Extremity Description [place] Skin Temperature Warm Temperature All Extremities Warm Skin Description [place], Normal for ethnicity Skin Integrity Not intact Skin Turgor Elastic Mucous Membrane Color [place] Mucous Membrane Description Moist Nose Anterior Skin [...] Arousable with minimal stimulation Eye Opening Response Radnor To voice Best Motor Response Zeke Obeys simple commands Best Verbal Response Zeke Oriented Radnor Coma Score 14 YANICK Yes Left Pupil [...] Mode Order Detail Bed Nurse and Monitor Silica Dry Press Helper Details Form Silica Dry Press Helper Details Form 07/13/2022 0:40 EDT Notify date/time 07/13/2022 0:40 Provider Notified COOLKATHLEENLOWELL DANIEL Notification Method Phone Information Communicated Lab results [...] On and Limits Checked Nail Bed Color [place] Capillary Refill < 2 seconds Heart Sounds ICU S1S2 Heart Rhythm Regular Dorsalis Pedis Pulse, Left 1+ Thready Dorsalis Pedis Pulse, Right 1+ Thready Posttibial Pulse, Left 1+ Thready Posttibial Pulse, Right 1+ Thready Radial Pulse, Left 2+ Normal Radial Pulse, Right 2+ Normal Edema Generalized None Cardiac Rhythm Sinus tachycardia Monitoring Lead II, V1/MCL1 SC Interval 0.13 second(s) QRS Duration 0.08 second(s) [...] grimaces Skin Symptoms Bruising All Extremity Description [place] Skin Temperature Warm Temperature All Extremities Warm Skin Description [place], Normal for ethnicity Skin Integrity Not intact Skin Turgor Non-Elastic Mucous Membrane Color [place] Mucous Membrane Description Moist Nose Anterior Skin [...] Response Zeke To voice Best Motor Response Radnor Obeys simple commands Best Verbal Response Zeke [...] Appropriate, Calm, Cooperative Orientation Oriented x 4 Vaishali Wpnhhyoc17-23-2706 Note Date of Service 07/13/2022 Split/shared visit with Dr. Jaswant MD Neurosurgical CC: Unstable C6-7 fracture or dislocation post fall. C2-C3 stenosis with cervical myelopathy Patient is a 71-year-old female who was brought to [facility] via EMS after sustaining a fall over her walker landing on her left side and face on 07/11/2022. 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 Patient transferred to [facility] ED. Stat MRI completed and patient admitted to the surgical ICU by Dr. Matthews Patient was initially planned for ACDF C6-C7 and plating C5-T1 by Dr. Matthews on 07/12/2022. Dr. Matthews canceled surgery. Dr. Lerner met with patient yesterday and plans to [...] with weakness of the left tricep/bicep and stevedore hold. Negative Pierre's. She does have 3 beats [...] 12, 2022 Verified By: AMBER STUBBS, EDER CLINICAL STATEMENT: IMPRESSION: Nondiagnostic assessment of alignment [...] pain post fall. She was taken to [facility] by EMS found to have cervical spine injury and transferred to [facility] ED. Stat MRI completed and patient was admitted to the surgical ICU by Dr. 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 Lerner has assumed care of the patient and [...] relaxers as needed Please refer to Dr. Lerner's addendum [1] Progress Note; NITA MADERA APRN-SILVINO 07/12/2022 05:43 EDT Digitally Signed by NITA MADERA APRN-SILVINO on 07/13/2022 05:50 AM [facility] HospitalVtivafrg93-72-5686 Anesthesiology Consult note* ALEJANDRA HERNANDEZ MD: PERFORM, SIGN, VERIFY Event Display: Anesthesiology Consultation Authored Date: [id number] Patient: POLI RAMIREZ Age: 71 years Sex: [...] a prior cardiac history including a previous [facility], however, she has not had any interventions, [...] Constipation NS 1,000 mL: 50 mL/hr, Intravenous [place] 325- 5 mg oral tablet: 1 tab(s), [...] list: Medical Chronic anemia / SNOMED CT 005246011 / Confirmed Chronic back pain / SNOMED CT 455590417 / Confirmed COPD / SNOMED CT 11102633 / Confirmed Hypertension, essential / SNOMED CT 81374622 / Confirmed GERD (gastroesophageal reflux disease) / SNOMED CT [id number] / Confirmed Goiter / SNOMED CT 2547641 / Confirmed Hyperlipidemia / SNOMED CT 16395469 / Confirmed Incontinence of urine / SNOMED CT 1390030754 / Confirmed, Active Problems (30) Anemia Arthritis [...] incontinence Histories Past Medical History: Active COPD (74269017) Chronic back pain (987118210) Resolved H/O hypercholesterolemia (9790293396): Resolved. Hypernatremia (8694119146): Resolved. Family History: Heart disease Father Brother Arthritis Daughter Stroke Mother Cancer Sister HTN - Hypertension Mother GERD (gastroesophageal reflux disease) Daughter Diverticulitis Daughter Procedure history: None (518195248). Appendectomy (850322234). Comments: 08/11/2017 12:13 SHAMA BOLTON left water taken off Tubal ligation (104333412). Cholecystectomy (72200966). Arthroscopic knee operation (7944420477). Comments: 12/24/2019 13:16 SHAMA Gabriel right Lumpectomy of breast (2595015266). Comments: 12/24/2019 13:16 SHAMA Gabriel left Phacoemulsification of cataract with intraocular lens implantation (4658311279). Comments: 12/24/2019 13:16 SHAMA Gabriel both eyes Colonoscopy (987079058). Esophagogastroduodenoscopy (647533454). Cardiac catheter (9432625650). Comments: 12/24/2019 13:17 SHAMA Gabriel years ago [...] kg (Modified) Weight Lbs 217.1 lb (Modified) [place] Body Weight 56.91 kg BSA Admission 2.05 [...] On and Limits Checked Nail Bed Color [place] Capillary Refill < 2 seconds Heart Sounds [...] grimaces Skin Symptoms Bruising All Extremity Description [place] Skin Temperature Warm Temperature All Extremities Warm Skin Description [place], Normal for ethnicity Skin Integrity Not intact Skin Turgor Non-Elastic Mucous Membrane Color [place] Mucous Membrane Description Moist Nose Anterior Skin [...] simple commands Best Verbal Response Zeke Oriented Radnor Coma Score 14 YANICK Yes Left Pupil [...] Appropriate, Calm, Cooperative Orientation Oriented x 4 Penology Teacher On Yes Patient Dressed In Hospital gown [...] On and Limits Checked Nail Bed Color [place] Capillary Refill < 2 seconds Heart Sounds ICU S1S2 Heart Rhythm Regular Dorsalis Pedis Pulse, Left 1+ Thready Dorsalis Pedis Pulse, Right 1+ Thready Posttibial Pulse, Left 1+ Thready Posttibial Pulse, Right 1+ Thready Radial Pulse, Left 2+ Normal Radial Pulse, Right 2+ Normal Edema Generalized None Cardiac Rhythm Sinus tachycardia Monitoring Lead II, V1/MCL1 SC Interval 0.16 second(s) QRS Duration 0.09 second(s) [...] grimaces Skin Symptoms Bruising All Extremity Description [place] Skin Temperature Warm Temperature All Extremities Warm Skin Description [place], Normal for ethnicity Skin Integrity Not intact Skin Turgor Non-Elastic Mucous Membrane Color [place] Mucous Membrane Description Moist Nose Anterior Skin [...] Zeke Obeys simple commands Best Verbal Response Radnor Oriented Radnor Coma Score 14 YANICK Yes Left Pupil [...] On and Limits Checked Nail Bed Color [place] Capillary Refill < 2 seconds Heart Sounds [...] grimaces Skin Symptoms Bruising All Extremity Description [place] Skin Temperature Warm Temperature All Extremities Warm Skin Description [place], Normal for ethnicity Skin Integrity Not intact Skin Turgor Elastic Mucous Membrane Color [place] Mucous Membrane Description Moist Nose Anterior Skin [...] Response Zeke To voice Best Motor Response Radnor Obeys simple commands Best Verbal Response Radnor Oriented Radnor Coma Score 14 YANICK Yes Left Pupil [...] Mode Order Detail Bed Nurse and Monitor Silica Dry Press Helper Details Form Silica Dry Press Helper Details Form 07/13/2022 0:40 EDT Notify date/time [...] On and Limits Checked Nail Bed Color [place] Capillary Refill < 2 seconds Heart Sounds ICU S1S2 Heart Rhythm Regular Dorsalis Pedis Pulse, Left 1+ Thready Dorsalis Pedis Pulse, Right 1+ Thready Posttibial Pulse, Left 1+ Thready Posttibial Pulse, Right 1+ Thready Radial Pulse, Left 2+ Normal Radial Pulse, Right 2+ Normal Edema Generalized None Cardiac Rhythm Sinus tachycardia Monitoring Lead II, V1/MCL1 SC Interval 0.13 second(s) QRS Duration 0.08 second(s) [...] grimaces Skin Symptoms Bruising All Extremity Description [place] Skin Temperature Warm Temperature All Extremities Warm Skin Description [place], Normal for ethnicity Skin Integrity Not intact Skin Turgor Non-Elastic Mucous Membrane Color [place] Mucous Membrane Description Moist Nose Anterior Skin [...] simple commands Best Verbal Response Zeke Oriented Radnor Coma Score 14 YANICK Yes Left Pupil [...] mL 07/12/2022 22:59 EDT IV Present Present Penology Teacher On Yes Patient Dressed In Hospital gown [...] On and Limits Checked Nail Bed Color [place] Capillary Refill < 2 seconds Heart Sounds [...] grimaces Skin Symptoms Bruising All Extremity Description [place] Skin Temperature Warm Temperature All Extremities Warm Skin Description [place], Normal for ethnicity Skin Integrity Not intact Skin Turgor Elastic Mucous Membrane Color [place] Mucous Membrane Description Moist Nose Anterior Skin [...] Response Zeke To voice Best Motor Response Radnor Obeys simple commands Best Verbal Response Radnor Oriented Radnor Coma Score 14 YANICK Yes Left Pupil [...] Type 0-10 Pain scale Nail Bed Color [place] Capillary Refill < 2 seconds Dorsalis Pedis [...] grimaces Skin Symptoms Bruising All Extremity Description [place] Skin Temperature Warm Temperature All Extremities Warm Skin Description [place], Normal for ethnicity Skin Integrity Not intact Skin Turgor Elastic Mucous Membrane Color [place] Mucous Membrane Description Moist Nose Anterior Skin [...] simple commands Best Verbal Response Zeke Oriented Radnor Coma Score 14 YANICK Yes Left Pupil [...] Type 0-10 Pain scale Nail Bed Color [place] Capillary Refill < 2 seconds Heart Rhythm [...] On Skin Symptoms Bruising All Extremity Description [place] Skin Temperature Warm Temperature All Extremities Warm Skin Description [place], Normal for ethnicity Skin Integrity Not intact Skin Turgor Elastic Mucous Membrane Color [place] Mucous Membrane Description Moist Nose Anterior Skin [...] Arousable with minimal stimulation Eye Opening Response Radnor To voice Best Motor Response Radnor Obeys simple commands Best Verbal Response Zeke Oriented Radnor Coma Score 14 YANICK Yes Left Pupil [...] date/time 07/12/2022 16:47 Provider Notified [place] COOL APRN-AERONAUTICS COMMISSION DIRECTOR Notification Method Face to face conversation Information [...] Mode Order Detail Bed Nurse and Monitor Silica Dry Press Helper Details Form Silica Dry Press Helper Details Form 07/12/2022 15:18 EDT SN - [...] Type 0-10 Pain scale Nail Bed Color [place] Capillary Refill < 2 seconds Heart Rhythm Regular Dorsalis Pedis Pulse, Left 1+ Thready Dorsalis Pedis Pulse, Right 1+ Thready Posttibial Pulse, Left 1+ Thready Posttibial Pulse, Right 1+ Thready Radial Pulse, Left 2+ Normal Radial Pulse, Right 2+ Normal Edema Generalized None Cardiac Rhythm Bundle branch block Cardiac Rhythm Sinus tachycardia Monitoring Lead II SC Interval 0.13 second(s) QRS Duration 0.12 second(s) [...] On Skin Symptoms Bruising All Extremity Description [place] Skin Temperature Warm Temperature All Extremities Warm Skin Description [place], Normal for ethnicity Skin Integrity Not intact Skin Turgor Elastic Mucous Membrane Color [place] Mucous Membrane Description Moist Nose Anterior Skin [...] Opening Response Zeke Spontaneously Best Motor Response Radnor Obeys simple commands Best Verbal Response Zeke Oriented Radnor Coma Score 15 YANICK Yes Left Pupil [...] Type 0-10 Pain scale Nail Bed Color [place] Capillary Refill < 2 seconds Heart Rhythm [...] On Skin Symptoms Bruising All Extremity Description [place] Skin Temperature Warm Temperature All Extremities Warm Skin Description [place], Normal for ethnicity Skin Integrity Not intact Skin Turgor Elastic Mucous Membrane Color [place] Mucous Membrane Description Moist Continuous IV Infusions NS @ 50ml/hr Forearm Right 18 gauge Peripheral IV Site Condition: No complications Neurological Language Able to speak clearly Neurological Symptoms Numbness Gait Unable to assess Extremity Movement Equal Swallowing Difficulty None Characteristics of Communication Appropriate Characteristics of Speech Clear Facial Symmetry Symmetric Level of Consciousness Arousable with minimal stimulation Eye Opening Response Radnor Spontaneously Best Motor Response Radnor Obeys simple commands Best Verbal Response Radnor Oriented Zeke Coma Score 15 YANICK Yes [...] (Modified) Designated Person #2 We May Share PHI Jocy [phone] Designated Person #2 Relationship Daughter Privacy Restrictions Requested None (Modified) Height 165 cm (Modified) Height in inches 65 inch(es) (Modified) Admission Weight 98.7 kg (Modified) Weight Lbs 217.1 lb (Modified) [place] Body Weight 56.91 kg BSA Admission 2.05 [...] Advanced Directives Yes (Modified) Advance Directive Type [place] Declaration (Living Will) (Modified) Advance Directive Location [...] Safety Brochure Information Reviewed Yes (Modified) Vaishali [place] Video Viewed Yes (Modified) Barriers to Learning None evident (Modified) Teaching Method Explanation (Modified) Teaching Evaluation Verbalizes/Nonverbally indicates understanding (Modified) Preferred Written Language [place] (Modified) Preferred Spoken Language [place] (Modified) Information Given by Patient (Modified) Patient's [...] Type 0-10 Pain scale Nail Bed Color [place] Capillary Refill < 2 seconds Heart Sounds ICU S1S2 Heart Rhythm Regular Dorsalis Pedis Pulse, Left 1+ Thready Dorsalis Pedis Pulse, Right 1+ Thready Posttibial Pulse, Left 1+ Thready Posttibial Pulse, Right 1+ Thready Edema Generalized None Cardiac Rhythm Bundle branch block Cardiac Rhythm Sinus tachycardia Monitoring Lead II SC Interval 0.14 second(s) QRS Duration 0.12 second(s) [...] On Skin Symptoms Bruising All Extremity Description [place] Skin Temperature Warm Temperature All Extremities Warm Skin Description [place], Normal for ethnicity Skin Integrity Not intact Skin Turgor Elastic Mucous Membrane Color [place] Mucous Membrane Description Moist Nose Anterior Skin [...] Type 0-10 Pain scale Nail Bed Color [place] Capillary Refill < 2 seconds Dorsalis Pedis [...] On Skin Symptoms Bruising All Extremity Description [place] Skin Temperature Warm Temperature All Extremities Warm Skin Description [place], Normal for ethnicity Skin Integrity Not intact Skin Turgor Elastic Mucous Membrane Color [place] Mucous Membrane Description Moist Nose Anterior Wound Status: No complications Continuous IV Infusions NS @ 50ml/hr Neurological Language Able to speak clearly Neurological Symptoms Numbness Gait Unable to assess Extremity Movement Equal Swallowing Difficulty None Characteristics of Communication Appropriate Characteristics of Speech Clear Facial Symmetry Symmetric Level of Consciousness Arousable with minimal stimulation Eye Opening Response Zeke Spontaneously Best Motor Response Radnor Obeys simple commands Best Verbal Response Radnor Oriented Radnor Coma Score 15 YANICK Yes Left Pupil [...] Mode Order Detail Bed Nurse and Monitor Silica Dry Press Helper Details Form Silica Dry Press Helper Details Form 07/12/2022 8:15 EDT Magnesium Lvl [...] Type 0-10 Pain scale Nail Bed Color [place] Capillary Refill < 2 seconds Heart Sounds ICU S1S2 Heart Rhythm Regular Dorsalis Pedis Pulse, Left 1+ Thready Dorsalis Pedis Pulse, Right 1+ Thready Posttibial Pulse, Left 1+ Thready Posttibial Pulse, Right 1+ Thready Radial Pulse, Left 2+ Normal Radial Pulse, Right 2+ Normal Edema Generalized None Cardiac Rhythm Sinus tachycardia, Bundle branch block Monitoring Lead II, V1/MCL1 SC Interval 0.14 second(s) QRS Duration 0.13 second(s) [...] On Skin Symptoms Bruising All Extremity Description [place] Skin Temperature Warm Temperature All Extremities Warm Skin Description [place], Normal for ethnicity Skin Integrity Not intact Skin Turgor Elastic Mucous Membrane Color [place] Mucous Membrane Description Moist Nose Anterior Skin [...] Arousable with minimal stimulation Eye Opening Response Radnor Spontaneously Best Motor Response Zeke Obeys simple [...] On and Limits Checked Nail Bed Color [place] Capillary Refill < 2 seconds Heart Sounds [...] On Skin Symptoms Bruising All Extremity Description [place] Skin Temperature Warm Skin Description [place], Normal for ethnicity Skin Integrity Not intact Skin Turgor Elastic Mucous Membrane Color [place] Mucous Membrane Description Moist Nose Anterior Skin Abnormality Type: Abrasion Wound Status: No complications Neurological Language Able to speak clearly, Follows simple commands Neurological Symptoms Numbness Gait Unable to assess Extremity Movement Equal Swallowing Difficulty None Characteristics of Communication Appropriate Characteristics of Speech Clear Facial Symmetry Symmetric Level of Consciousness Arousable with minimal stimulation Eye Opening Response Radnor Spontaneously Best Motor Response Zeke Obeys simple commands Best Verbal Response Radnor Oriented Radnor Coma Score 15 YANICK Yes Left Pupil [...] On and Limits Checked Nail Bed Color [place] Capillary Refill < 2 seconds Heart Sounds [...] On Skin Symptoms Bruising All Extremity Description [place] Skin Temperature Warm Temperature All Extremities Warm Skin Description [place], Dry Skin Integrity Not intact Skin Turgor Elastic Mucous Membrane Color [place] Mucous Membrane Description Moist Nose Anterior Wound Status: Unchanged Continuous IV Infusions NS@50 Neurological Language Able to speak clearly Neurological Symptoms Numbness Gait Unable to assess Extremity Movement Equal Swallowing Difficulty None Characteristics of Communication Appropriate Characteristics of Speech Clear Facial Symmetry Symmetric Level of Consciousness Arousable with minimal stimulation Eye Opening Response Radnor To voice Best Motor Response Radnor Obeys simple commands Best Verbal Response Radnor Oriented Zeke Coma Score 14 YANICK Yes [...] Mode Order Detail Bed Nurse and Monitor Silica Dry Press Helper Details Form Silica Dry Press Helper Details Form 07/12/2022 0:25 EDT Mechanical VTE Prophylaxis Education Not Done: Task Duplication (Not Done) Sequential Compression Device Form Not Done (Not Done) 07/12/2022 0:08 EDT Primary Pain Intensity 7 HYDROmorphone 0.5 mg mg ondansetron 4 mg mg . Assessment and Plan [place] [employer]esthesi[employer] (ASA) physical status classification: [...] ALEJANDRA HERNANDEZ MD on 07/13/2022 07:28 AM [facility] 08-29-2022 Note Date of Service 07/12/2022 [...] and equal. Left tricep 2.5/5, bicep 3.5/5, stevedore hold 4/5, bilateral intrinsics are strong. Negative Pierre's. [...] pain post fall. She was taken to [facility] by EMS found to have cervical spine injury and transferred to [facility]. Stat MRI completed and patient was [...] by NITA MADERA on 07/12/2022 05:53 AM [id number] Critical care medicine Consult note Date of [...] C2C3 so that patient was transferred to [facility] where she was evaluated per neurosurgery [...] 17 gram(s)= 15 mL, Oral, qDay, PRN [place] 325- 5 mg oral tablet, 1 tab(s), [...] DARLING EDWARDS MD on 07/12/2022 09:57 AM [id number] Note ORIGINAL EXAMINATION: ONE XRAY VIEW OF [...] 07/12/2022 8:41:07 AM Ordering Provider: TEQUILA YOUNG [id number] Note Date of Service 07/12/2022 Split/shared visit [...] (Oral) HR: 96(Monitored) RR: 13 BP: 143/65 SpO2:96% HT: 165 cm WT: 98.7 kg BMI: [...] and equal. Left tricep 2.5/5, bicep 3.5/5, stevedore hold 4/5, bilateral intrinsics are strong. Negative Pierre's. [...] pain post fall. She was taken to [facility] by EMS found to have cervical spine injury and transferred to [facility]. Stat MRI completed and patient was [...] by NITA MADERA on 07/12/2022 05:53 AM [id number] Note ORIGINAL EXAMINATION: ONE XRAY VIEW OF [...] Sign Date: 07/12/2022 8:41:07 AM Ordering Provider: [facility]08-29-2022 Note ORIGINAL EXAMINATION: ONE XRAY VIEW OF [...] Date: 07/12/2022 7:52:46 AM Ordering Provider: NITA MADERA [id number] Note ORIGINAL EXAMINATION: ONE XRAY VIEW OF [...] Date: 07/12/2022 7:52:46 AM Ordering [facility] Note Date of Service 07/12/2022 Split/shared visit [...] and equal. Left tricep 2.5/5, bicep 3.5/5, stevedore hold 4/5, bilateral intrinsics are strong. Negative Pierre's. [...] pain post fall. She was taken to [facility] by EMS found to have cervical spine injury and transferred to [facility]. Stat MRI completed and patient was [...] practitioner [1] History and Physical; NITA MADERA BICYCLE SERVICE TECHNICIAN-AERONAUTICS COMMISSION DIRECTOR 07/11/2022 18:17 EDT Digitally Signed by NITA MADERA BICYCLE SERVICE TECHNICIAN-AERONAUTICS COMMISSION DIRECTOR on 07/12/2022 05:53 AM [id number] Note ORIGINAL EXAMINATION: ONE XRAY VIEW OF [...] Date: 07/11/2022 7:30:42 PM Ordering Provider: NITA MADERA [facility] [id number] Note ORIGINAL EXAMINATION: ONE XRAY VIEW OF [...] Date: 07/11/2022 7:28:52 PM Ordering Provider: NITA MADERA [id number] History and physical note Date of Service 07/11/2022 Chief Complaint Fall, neck pain History of Present Illness Mrs. Ramirez is a 71-year-old female with a past medical history of hypertension, obesity, hyperlipidemia, COPD, severe restrictive airway disease follows with [facility] pulmonology, noninsulin-dependent type 2 diabetes, venous insufficiency, [...] precautions have been maintained. Patient taken to [facility]. She was noted to have a significant cervical spine injury and transferred to [facility] ED for further evaluation and trauma work-up. [...] strength noted to be unequal. Bicep/tricep and stevedore hold 3.5/5 on the left, strong on the [...] pain post fall. She was taken to [facility] by EMS found to have cervical spine injury and transferred to [facility] ED. Stat MRI completed and patient was [...] completed regarding recommendations for treatment Consult to gauge checker for assistance with medical management and surgical [...] Constant Order Digitally Signed by NITA MADERA BICYCLE SERVICE TECHNICIAN-AERONAUTICS COMMISSION DIRECTOR on 07/11/2022 06:29 PM [facility] [id number] Note ORIGINAL EXAMINATION: ONE XRAY VIEW OF [...] Date: 07/11/2022 7:30:42 PM Ordering Provider: [facility] Evaluation + Plan noteExtracted from: Title:History and Physical Author:SHIRIN MADERA BICYCLE SERVICE TECHNICIAN-AERONAUTICS COMMISSION DIRECTOR Date:07/11/22 71-year-old female sustained a unwitnessed mechanical fall over her walker landing on left side and face 07/11/2022. Denies LOC. Developed immediate neck pain post fall. She was taken to [facility] by EMS found to have cervical spine injury and transferred to [facility] ED. Stat MRI completed and patient was [...] completed regarding recommendations for treatment Consult to gauge checker for assistance with medical management and surgical clearance. Discussed case with ICU nurse practitioner Future Appointments Appointment Date:08/10/2022 11:00:00 AM Scheduled Provider: Location:[facility] Appointment Type:NS Post Op Future Scheduled Tests Laboratory* A1C Hemoglobin 01/06/22 * Lipid Profile 01/06/22 * Complete Metabolic Panel 01/06/22 Radiology* XR Spine Cervical AP/LAT 07/27/22 [facility] 08-28-2022 Note ORIGINAL HISTORY: Fracture COMPARISON: [...] is mild ill-defined T2 hyperintensity in the sihmael, most likely small vessel ischemic disease. Specific [...] 07/11/2022 1:13:40 PM Ordering Provider: FABIANO MARTIN [id number] Note ORIGINAL HISTORY: Pain, fall COMPARISON: No [...] Sign Date: 07/11/2022 9:14:35 AM Ordering Provider: MARIANA RAMOS [facility]08-28-2022 Note ORIGINAL HISTORY: Neck pain, fall [...] Sign Date: 07/11/2022 9:13:21 AM Ordering Provider: [facility]08-28-2022 Note ORIGINAL HISTORY: Pain COMPARISON: No [...] Sign Date: 07/11/2022 9:03:50 AM Ordering Provider: [facility]08-28-2022 Note ORIGINAL HISTORY: Fall COMPARISON: 04 December [...] Sign Date: 07/11/2022 9:01:52 AM Ordering Provider: [facility]08-28-2022 Note ORIGINAL HISTORY: Neck pain, fall [...] Sign Date: 07/11/2022 9:13:21 AM Ordering Provider: [facility]08-28-2022 Note ORIGINAL HISTORY: Pain COMPARISON: No TECHNIQUE: [...] Sign Date: 07/11/2022 9:03:50 AM Ordering Provider: [facility]08-28-2022 Note ORIGINAL HISTORY: Pain, fall COMPARISON: No [...] Sign Date: 07/11/2022 9:14:35 AM Ordering Provider: [facility]08-28-2022 Note ORIGINAL HISTORY: Fall COMPARISON: [...] Sign Date: 07/11/2022 9:01:52 AM Ordering Provider: [facility]02-23-2022 Evaluation + Plan note Future Scheduled Tests Laboratory* A1C Hemoglobin 01/06/22 * Lipid Profile 01/06/22 * Complete Metabolic Panel 01/06/22 [facility] 01-21-2022 Hospital Discharge instructions Patient Education [...] Carry a medical ID card or a Sentrig[address] drive. Or wear a medical alert bracelet [...] keep having episodes of high blood sugar. [id number] [employer]. [address] [place] [address], [place] [id number]. All rights reserved. This information is not intended as a substitute for professional medical care. Always follow yourhealthcare professional's instructions. 12/04/2021 11:47:20 Fall, Mechanical Mechanical [...] in vomit, stools (black or red color) [phone] [employer] [place] [address]. All rights reserved. This information is not intended as a substitute for professional medical care. Always follow yourhealthcare professional's instructions. Follow Up Care 12/04/2021 08:14:09 With:[facility] Address: [phone] When:2-4 days [facility] 11-02-2021 Hospital Discharge instructions Patient Education [...] meats and fish, and low-fat dairy products. [phone] [employer]. [address] [place] [address], [place] [address]. All rights reserved. This information is not intended as a substitute for professional medical care. Always follow [facility] hospital[facility] professional's instructions. 09/15/2021 20:06:55 Medical Screening [...] come back to this facility in person. [phone] [employer]. [address] [place] [address]. All rights reserved. This information is not intended as a substitute for professional medical care. Always follow yourhealthcare professional's instructions. Follow Up Care 09/15/2021 18:07:55 With:BARBER CARLISLE Address:Unknown When:Within 1 Day(s) Comments:Follow-up as scheduled with your doctor tomorrow.Continue all routine medications.Return to the ED if symptoms worsen. [facility] evaluMemSQL + Plan note Future Appointments Appointment Date:09/16/2021 01:30:00 PM Scheduled Provider:BARBER CARLISLE Location:[facility] Appointment Type:[facility] Pinst[facility]pe[facility] + Plan note Future Appointments Appointment Date:03/22/2022 02:00:00 PM Scheduled Provider:BARBER CARLISLE Location[facility] Appointment Type:[facility] Pinstripeation + Plan note Future Appointments Appointment Date:07/27/2022 09:30:00 AM Scheduled Provider: Location:[facility] Appointment Type:NS Post Op Future Scheduled Tests Laboratory* A1C Hemoglobin 01/06/22 * Lipid Profile 01/06/22 * Complete Metabolic Panel 01/06/22 [facility]uation + Plan note Future Appointments Appointment Date:08/12/2022 08:30:00 AM Scheduled Provider: Location:NEUROS Appointment Type:NS Post Op Future Scheduled Tests Laboratory* A1C Hemoglobin 01/06/22 * Lipid Profile 01/06/22 * Complete Metabolic Panel 01/06/22 Radiology* XR Spine Cervical AP/LAT 07/27/22 [facility] evaluation + Plan note Future Appointments Appointment Date:09/09/2022 10:00:00 AM Scheduled Provider: Location:NEUROS Appointment Type:NS Post Op Future Scheduled Tests Laboratory* A1C Hemoglobin 01/06/22 * Lipid Profile 01/06/22 * Complete Metabolic Panel 01/06/22 [facility] evaluation + Plan note Future Appointments Appointment Date:10/05/2022 01:30:00 PM Scheduled Provider:TRACE MATTHEWS MD Location:NEUROS Appointment Type:NS Post Op Future Scheduled Tests Laboratory* A1C Hemoglobin 01/06/22 * Lipid Profile 01/06/22 * Complete Metabolic Panel 01/06/22 Radiology* XR Spine Thoracic 2 Views 09/09/22 * XR Spine Cervical AP/LAT/Flex/Ext 09/09/22 [facility] evaluation + Plan note Future Appointments Appointment Date:10/26/2022 03:00:00 PM Scheduled Provider: Location:RAD Appointment Type:CT Spine Cervical w/o Contrast Appointment Date:11/04/2022 02:15:00 PM Scheduled Provider:TRACE MATTHEWS MD Location:NEUR[facility] Appointment Type:Telephone Future Scheduled Tests Laboratory* A1C Hemoglobin 01/06/22 * Lipid Profile 01/06/22 * Complete Metabolic Panel 01/06/22 Radiology* CT Spine Cervical w/o Contrast 10/26/22 [facility] evaluation + Plan note Future Appointments Appointment Date:11/04/2022 02:15:00 PM Scheduled Provider:TRACE MATTHEWS MD Location:NEUROS Appointment Type:Telephone Future Scheduled Tests Laboratory* A1C Hemoglobin 01/06/22 * Lipid Profile 01/06/22 * Complete Metabolic Panel 01/06/22 [facility] Evaluation + Plan note Future Appointments Appointment Date:08/19/2023 02:30:00 PM Scheduled Provider: Location:RAD Appointment Type:MRI Pancreas Future Scheduled Tests Radiology* MRI Pancreas 08/19/23 [facility] evaluation noteNo assessment information available [facility] Work Phone: evaluation note* Diagnosis Onset Date Resolution Status Iron deficiency anemia acute Vitamin B12 deficiency acute Thrombocytopenia chronic [facility] Work Phone: Evaluation note* Diagnosis Onset Date Resolution Status Hyperglycemia acute Metabolic encephalopathy acu te Acute on chronic respiratory failure with hypoxia and hypercapnia chronic COPD (chronic obstructive pulmonary disease) [facility] Work Phone: Evaluation note* Diagnosis Onset Date Resolution Status Anemia acute Cardiomyopathy acute Congestive heart failure (CHF) acute Hyperglycemia acute Lower extremity edema acute Lung nodules acute Metabolic encephalopathy acu te On mechanically assisted ventilation acute Pneumonia acute Respiratory disorder with ventilator dependence acute Acute on chronic respiratory failure with hypoxia and hypercapnia chronic COPD (chronic obstructive pulmonary disease) [facility] Work Phone: Evaluation note* Diagnosis Onset Date Resolution Status Iron deficiency anemia chron ic Thrombocytopenia chronic Iron deficiency anemia chron ic Thrombocytopenia chronic Anemia acute Congestive heart failure (CHF) acute COPD (chronic obstructive pulmonary disease) chronic Lung nodules chronic Metabolic encephalopathy res olved Pneumonia resolved Breast nodule acute Neck mass acute Iron deficiency anemia chron ic Lung nodules chronic Thrombocytopenia [facility] Work Phone: Evaluation note* Diagnosis Onset Date Resolution Status Iron deficiency anemia chron ic Thrombocytopenia chronic Anemia acute Congestive heart failure (CHF) acute COPD (chronic obstructive pulmonary disease) chronic Lung nodules chronic Metabolic encephalopathy res olved Pneumonia resolved Breast nodule acute Neck mass acute Iron deficiency anemia chron ic Lung nodules chronic Thrombocytopenia [facility] Work Phone: Evaluation note* Diagnosis Onset [...] nodules chronic Thrombocytopenia chronic Breast nodule acute [facility] Work Phone: Evaluation note* Diagnosis Onset Date Resolution Status Breast nodule acute Neck mass acute Iron deficiency anemia chron ic Lung nodules chronic Thrombocytopenia chronic Breast nodule acute Breast nodule acute Neck mass acute Iron deficiency anemia chron ic Lung nodules chronic Thrombocytopenia [facility] Work Phone: Evaluation note* Diagnosis Onset Date Resolution Status Breast nodule acute Neck mass acute Iron deficiency anemia chron ic Lung nodules chronic Thrombocytopenia [facility] Work Phone: Evaluation note* Diagnosis Onset Date Resolution Status Hematuria acute Iron deficiency anemia chron ic Lung nodules chronic Thrombocytopenia chronic [facility] Work Phone: Evaluation note* Diagnosis Colovaginal fistula- Primary Colovaginal fistula Acquired thrombocytopenia (CMS/HCC) Secondary thrombocytopenia Encounter for preprocedural cardiovascular examination Dilated cardiomyopathy (CMS/HCC) Other primary cardiomyopathies Dilated cardiomyopathy (CMS/HCC) Other primary cardiomyopathies documented in this encounter [facility] Work Phone: Evaluation note* Diagnosis Diverticulitis- Primary Diverticulitis of colon (without mention of hemorrhage) Colovaginal fistula- Primary Diverticulitis Diverticulitis of colon (without mention of hemorrhage) documented in this encounter [facility] Work Phone: Evaluation note* Diagnosis Preop cardiovascular exam- Primary Pre-operative cardiovascular examination Chronic systolic heart failure (CMS/HCC) Chronic systolic heart failure documented in this encounter [facility] Work Phone: Evaluation note* Diagnosis Encounter for preadmission testing documented in this encounter [facility] Work Phone: Evaluation note* Diagnosis Encounter for preadmission testing documented in this encounter [facility] Work Phone: Hospital course Narrative No data available for this section [facility] Hospital Discharge instructions No data available for this section [facility] Hospital Discharge instructions Additional Instructions Your [...] have a progression or worsening of your symptoms.[facility] Work Phone: Progress note No data available for this section [facility] Summary Purpose Family History No Family History Records Found Sister Name Dates Details Family history of malignant neoplasm of breast(V16.3, Z80.3) Status:Active Relationship Condition Age at Onset Recorded Date/T [place] sister Malignant neoplasm of breast Unknown grandmother Diabetes mellitus Unknown Advance Directives No Advanced Directives Records Found Advance Directive Response Recorded Date/ Time Living Will No November 24 9:00am Power of Materials Mgmt Tech No November 24, 2021 9:00am Advance Directive Response Recorded Date/ Time Living Will No November 24 8:00am Power of Materials Mgmt Tech No November 24, 2021 8:00am Advance Directive Response Recorded Date/ Time Living Will No April 19, 2023 4 :46pm Power of Materials Mgmt Tech No April 19, 2023 4:46pm Advance Directive Response Recorded Date/ Time Living Will No July 14 4:04pm Power of Materials Mgmt Tech No July 14 4:04pm Advance Directive Response Recorded Date/ Time Living Will No August 09, 2023 11:01pm Power of Materials Mgmt Tech No July 11:01pm Advance Directive Response Recorded Date/ Time Living Will No September 14 10:49pm Power of Materials Mgmt Tech No September 14, 2023 10:49pm Latest Code [...] Will No September 14 9:49pm Power of Materials Mgmt Tech No September 14, 2023 9:49pm Latest Code [...] Complaint and Reason for Visit Chief Complaint [facility] LABWORK [facility] LAB WORK Chief Complaint [facility] LABWORK [facility] LAB WORK [facility] LABWORK Chief Complaint [facility] LABWORK [facility] LAB WORK [facility] LAB WORK [facility] LABWORK [facility] LABWORK Chief Complaint [facility] LABWORK [facility] LAB WORK [facility] LAB WORK [facility]WORK LABWORK [facility] LABWORK 2MO -LABS- NEW PT - PANCYTOPENIA [...] PT - PANCYTOPENIA 2MO -LABS- 2MO -LABS- [facility] LABWORK ACUTE ON CHRONIC HYPOXIC AND HYPERCAPNIC [...] NEW PT - PANCYTOPENI A 2MO -LABS- [facility] LABWORK ACUTE ON CHRONIC HYPOXIC AND HYPERCAPNIC [...] HYPERCAPNIC ACUTE ON CHRONIC HYPOXIC AND HYPERCAPNIC [facility] LABWORK 3MO LABS 2MO -LABS- Reason for Visit Iron deficiency anem ia Thrombocytopenia Iron deficiency anemia Thrombocytopenia Anemia Congestive heart failure (CHF) COPD (chronic obstructive pulmonary disease) Lung nodules Metabolic encephalopathy Pneumonia Breast nodule Neck mass Iron deficiency anemia Lung nodules Thrombocytopenia Chief Complaint 2MO -LABS- [facility] LABWORK ACUTE ON CHRONIC HYPOXIC AND HYPERCAPNIC [...] HYPERCAPNIC ACUTE ON CHRONIC HYPOXIC AND HYPERCAPNIC [facility] LABWORK [facility] LABWORK [facility] LABWORK 3MO LABS 2MO -LABS- NODULE ON NECK, ? CANCER Reason for Visit Iron deficiency anem ia Thrombocytopenia Anemia Congestive heart failure (CHF) COPD (chronic obstructive pulmonary disease) Lung nodules Metabolic encephalopathy Pneumonia Breast nodule Neck mass Iron deficiency anemia Lung nodules Thrombocytopenia Chief Complaint 2MO -LABS- [facility] LABWORK ACUTE ON CHRONIC HYPOXIC AND HYPERCAPNIC [...] HYPERCAPNIC ACUTE ON CHRONIC HYPOXIC AND HYPERCAPNIC [facility] LABWORK CHCF LABWORK [facility] LABWORK 3MO LABS 2MO -LABS- NODULE ON [...] Thrombocytopenia Breast nodule Chief Complaint 2MO -LABS- [facility] LABWORK ACUTE ON CHRONIC HYPOXIC AND HYPERCAPNIC [...] HYPERCAPNIC ACUTE ON CHRONIC HYPOXIC AND HYPERCAPNIC [facility] LABWORK [facility] LABWORK [facility] LABWORK 3MO LABS 2MO -LABS- NODULE ON [...] Thrombocytopenia Breast nodule Chief Complaint 2MO -LABS- [facility] LABWORK ACUTE ON CHRONIC HYPOXIC AND HYPERCAPNIC [...] HYPERCAPNIC ACUTE ON CHRONIC HYPOXIC AND HYPERCAPNIC [facility] LABWORK [facility] LABWORK [facility] LABWORK 3MO LABS 2MO -LABS- NODULE ON NECK, ? CANCER 2WKS NO LABS REVIEW MAMMO/CT [facility] LABWORK L BREAST NODULE L BREAST NODULE [...] CA NCER 2WKS NO LABS REVIEW MAMMO/CT [facility] LABWORK L BREAST NODULE L BREAST NODULE LABWORK abd pain 2MO -LABS- 6WKS LABS REVIEW BIOPSY/PATH [facility] LAB WORK Reason for Visit Breast nodule Neck mass Iron deficiency anemia Lung nodules Thrombocytopenia Breast nodule Breast nodule Neck mass Iron deficiency anemia Lung nodules Thrombocytopenia Chief Complaint NODULE ON NECK, ? CA NCER 2WKS NO LABS REVIEW MAMMO/CT [facility] LABWORK L BREAST NODULE L BREAST NODULE LABWORK abd pain 2MO -LABS- 6WKS LABS REVIEW BIOPSY/PATH [facility] LAB WORK [facility] LAB WORK ABD PAIN Reason for Visit Breast nodule Neck mass Iron deficiency anemia Lung nodules Thrombocytopenia Breast nodule Breast nodule Neck mass Iron deficiency anemia Lung nodules Thrombocytopenia Chief Complaint LABWORK abd pain 2MO -LABS- 6WKS LABS REVIEW BIOPSY/PATH [facility] LAB WORK [facility] LAB WORK ABD PAIN Reason for Visit Breast nodule Neck mass Iron deficiency anemia Lung nodules Thrombocytopenia Chief Complaint LABWORK abd pain 2MO -LABS- 6WKS LABS REVIEW BIOPSY/PATH [facility] LAB WORK [facility] LAB WORK ABD PAIN dizziness Reason for Visit Breast nodule Neck mass Iron deficiency anemia Lung nodules Thrombocytopenia Chief Complaint 2MO -LABS- 6WKS LABS REVIEW BIOPSY/PATH [facility] LAB WORK [facility] LAB WORK ABD PAIN dizziness [facility] LABWORK Reason for Visit Breast nodule Neck mass Iron deficiency anemia Lung nodules Thrombocytopenia Chief Complaint [facility] LAB WOR K [facility] LAB WORK ABD PAIN dizziness [facility] LABWORK LABWORK Chief Complaint [facility] LAB WOR K [facility] LAB WORK ABD PAIN dizziness [facility] LABWORK LABWORK DISCUSS OPTIONS-NO LABS 2MO -LABS- abd pain Reason for Visit Hematuria Iron deficiency anemia Lung nodules Thrombocytopenia Chief Complaint [facility] LAB WOR K [facility] LAB WORK ABD PAIN dizziness [facility] LABWORK LABWORK DISCUSS OPTIONS-NO LABS 2MO -LABS- [facility] LABWORK abd pain abd pain abd pain Reason for Visit Hematuria Iron deficiency anemia Lung nodules Thrombocytopenia Chief Complaint [facility] LAB WOR K ABD PAIN dizziness [facility] LABWORK LABWORK DISCUSS OPTIONS-NO LABS 2MO -LABS- [facility] LABWORK abd pain abd pain abd pain LEFT BREAST FOLLOW UP FIBROADENOMA Reason for Visit Hematuria Iron deficiency anemia Lung nodules Thrombocytopenia Reason for Referral Specialty Diagnoses / Procedures Referred By Contac t Referred To Contact Diagnoses Encounter for preadmission testing Procedures ECG 12 [place] [address] [place] [address] Referral ID Status Reason Start Date Expiration Date V isits Requested Visits Authorized [id number] Pending Review 10/28/2023 10/27/2024 1 1 Specialty Diagnoses / Procedures Referred By Contac t Referred To Contact Diagnoses Colovaginal fistula Nancy Treviño, BICYCLE SERVICE TECHNICIAN-AERONAUTICS COMMISSION DIRECTOR [id number] [facility] Department [place] [address] Referral ID Status Reason Start Date Expiration Date V isits Requested Visits Authorized [id number] Pending Review 09/28/2023 09/27/2024 1 1 Additional Source Comments INFORMATION SOURCE (unrecogn ized section and content) DATE CREATED AUTHOR 05/09/2018 [employer] DATE CREATED AUTHOR AUTHOR'S ORGANIZ ATION 07/14/2020 [facility] DATE CREATED AUTHOR AUTHOR'S ORGANIZ ATION 12/01/2021 [facility] DATE CREATED AUTHOR AUTHOR'S ORGANIZ ATION 11/06/2022 [facility] DATE CREATED AUTHOR AUTHOR'S ORGANIZ ATION 09/16/2023 [facility] ([place]) DATE CREATED AUTHOR AUTHOR'S ORGANIZ ATION 10/19/2023 [facility] DATE CREATED AUTHOR AUTHOR'S ORGANIZ ATION 11/13/2023 [facility] DATE CREATED AUTHOR AUTHOR'S ORGANIZ ATION 07/25/2024 [facility] DATE CREATED AUTHOR AUTHOR'S ORGANIZ ATION 09/11/2025 [facility] Care Team (unrecognized sect ion and content) Care Team Personnel Name: BARBER CARLISLE Position: P4 Advanced Practice Nurse Member Role: Primary Care Physician Address: Address: [address] [place] [address]- [place] Name: MARIANA RAMOS MD Position: ED Physician Member Role: Attending Physician Address: Address: [address] [place] [address] Care Team Related Persons Name: JOCY RUIZ Address: [address], [place] [id number] [place] Name: JOCY RUIZ Address: [address], [place] [phone] [place] Name: JOCY RUIZ Address: [address], [place] [phone] [place] Name: JOCY RUIZ Address: [address], [place] [id number] [place] Name: JOCY RUIZ Address: [address] [place] [id number] [place] Name: JOCY RUIZ Address: [address], [place] [id number] [place] Name: JOCY RUIZ Address: [address], [place] [id number] [place] Name: JOCY RAMIREZ Care Team Personnel Name: BARBER CARLISLE Position: P4 Advanced Practice Nurse Member Role: Primary Care Physician Address: Address: [address] Care Team Related Persons Name: JOCY RUIZ Address: [address] [place], [place] [id number] [place] Name: JOCY RUIZ Address: [address] [place], [place] [id number] [place] Name: JOCY RUIZ Address: [address] [place], [place] [id number] [place] Name: JOCY RUIZ Address: [address] [place] [id number] [place] Name: JOCY RUIZ Address: [address] [place], [place] [id number] [place] Name: JOCY RUIZ Address: Home [address] [place] [id number] [place] Name: JOCY RUIZ Address: [address] [place] [id number] [place] Name: JOCY RAMIREZ Care Team Personnel Name: BARBER CARLISLE APRN-AERONAUTICS COMMISSION DIRECTOR Position: P4 Advanced Practice Nurse Med Service: Active Provider Member Role: Primary Care Physician Address: Address: [address] [place] [address]- [place] Care Team Related Persons Name: JOCY RUIZ Address: [address] [place] [id number] [place] Name: JOCY RUIZ Address: [address] [place], [place] [id number] [place] Name: JOCY RUIZ Address: [address] [place] [id number] [place] Name: JOCY RUIZ Address: [address] [place] [id number] [place] Name: JOCY RUIZ Address: [address] [place], [place] [id number] [place] Name: JOCY RUIZ Address: [address] [place], [place] [id number] [place] Name: JOCY RUIZ Address: [address] [place] [id number] [place] Name: JOCY RAMIREZ Care Team Personnel Name: BARBER CARLISLEAERONAUTICS COMMISSION DIRECTOR Position: P4 Advanced Practice Nurse Med Service: Active Provider Member Role: Primary Care Physician Address: Address: [address] [place], [place] [address] Care Team Related Persons Name: JOCY RUIZ Address: [address] [place] [phone] [place] Name: JOCY RUIZ Address: [address] [place] [phone] [place] Name: JOCY RUIZ Address: [address] [place] [id number] [place] Name: JOCY RUIZ Address: [address] [place] [phone] [place] Name: JOCY RUIZ Address: [address] [place] [phone] [place] Name: JOCY RUIZ Address: [address] [facility] [address] [place] [phone] [place] Name: JOCY RUIZ Address: [address] [facility] [place] [phone] [place] Name: JOCY RAMIREZ Care Team Personnel Name: BARBER CARLISLE Position: P4 Advanced Practice Nurse Med Service: Active Provider Member Role: Primary Care Physician Address: Address: [address] [place] [address] Care Team Related Persons Name: JOCY RUIZ Address: [address] [facility] [place] [phone] [place] Name: JOCY RUIZ Address: [address] [place] [id number] [place] Name: JOCY RUIZ Address: [address] [place] [id number] [place] Name: JOCY RUIZ Address: [address] [place] [id number] [place] Name: JOCY RUIZ Address: [address] [place] [phone] [place] Name: JOCY RUIZ Address: [address] [place] [id number] [place] Name: JOCY RUIZ Address: [address] [facility] [address] [place] [phone] [place] Name: JOCY RAMIREZ Care Team Personnel Name: LORSON, BARBER BICYCLE SERVICE TECHNICIAN-AERONAUTICS COMMISSION DIRECTOR Position: P4 Advanced Practice Nurse Member Role: Primary Care Physician Address: Address: [address] [facility] [place] [address] Care Team Related Persons Name: JOCY RUIZ Address: [address] [place] [phone] [place] Name: JOCY RUIZ Address: [address] [place] [phone] [place] Name: JOCY RUIZ Address: [address] [place] [address] [place] Name: JOCY RUIZ Address: [address] [place] [phone] [place] Name: JOCY RUIZ Address: [address] [place] [id number] [place] Name: JOCY RUIZ Address: [address] [place] [phone] [place] Name: JOCY RUIZ Address: [address] [place] [id number] [place] Name: JOCY RAMIREZ Care Team Personnel Name: BARBER CARLISLE Position: P4 Advanced Practice Nurse Member Role: Primary Care Physician Address: Address: [address] [place], [place] [address] Care Team Related Persons Name: JOCY RUIZ Address: [address] [place] [phone] [place] Name: JOCY RUIZ Address: [address] [place] [phone] [place] Name: JOCY RUIZ Address: [address] [place] [address] [place] Name: JOCY RUIZ Address: [address] [place] [address] [place] Name: JOCY RUIZ Address: [address] [place] [phone] [place] Name: JOCY RUIZ Address: [address] [place] [phone] [place] Name: JOCY RUIZ Address: Home [address] [place] [id number] [place] Name: JOCY RAMIREZ Care Team Personnel Name: BARBER CARLISLE Position: P4 Advanced Practice Nurse Member Role: Primary Care Physician Address: Address: [address] [place] [address] [place] Care Team Related Persons Name: JOCY RUIZ Address: Home [address] [place] [phone] [place] Name: JOCY RUIZ Address: [address] [place] [address] [place] Name: JOCY RUIZ Address: [address] [place] [id number] [place] Name: JOCY RUIZ Address: [address] [facility] [place] [address] [place] Name: JOCY RUIZ Address: [address] [place] [id number] [place] Name: JOCY RUIZ Address: [address] [facility] [place] [address] [place] Name: JOCY RUIZ Address: [address] [facility] [place] [phone] [place] Name: JOCY RAMIREZ Care Team Personnel Name: BARBER CARLISLE Position: P4 Advanced Practice Nurse Member Role: Primary Care Physician Address: Address: [address] [place] [address] [place] Care Team Related Persons Name: JOCY RUIZ Address: [address] [place] [address] [place] Name: JOCY RUIZ Address: Home [address] [place] [phone] [place] Name: JOCY RUIZ Address: [address] [place] [id number] [place] Name: JOCY RUIZ Address: Home [address] [place] [address] [place] Name: JOCY RUIZ Address: [address] [place] [address] [place] Name: JOCY RUIZ Address: [address] [place] [address] [place] Name: JOCY RUIZ Address: [address] [facility] [place] [phone] [place] Name: VALERIY, JOCY Goals (unrecognized section and content) Goals may be documented in a n alternate section Care Teams (unrecognized sec tion and content) Team Status: Active Member Role Status Dates Barber Orestes BELLOWS CHARGER ASSEMBLER, BELLOWS CHARGER ASSEMBLER-C Primary Care Provider Active Team Status: Inactive Member Role Status Dates Barber Irmason BELLOWS CHARGER ASSEMBLER, BELLOWS CHARGER ASSEMBLER-C Primary Care Provider, Referri ng Provider Active Dr. Delfin Jeffries MD Attending Provider Active Team Status: Inactive Member Role Status Dates Barber Orestes BELLOWS CHARGER ASSEMBLER, BELLOWS CHARGER ASSEMBLER-C Primary Care Provider Active Stef ELMORE Attending Provider Active Team Status: Active Member Role Status Dates Barber Orestes BELLOWS CHARGER ASSEMBLER, BELLOWS CHARGER ASSEMBLER-C Primary Care Provider Active Dr. Delfin Jeffries MD Attending Provider, Referring Pro vider Active Team Status: Active Member Role Status Dates Barber Orestes BELLOWS CHARGER ASSEMBLER, BELLOWS CHARGER ASSEMBLER-C Primary Care Provider Active Jonathan ELMORE MD Attending Provider Active Team Status: Active Member Role Status Dates Barber Carlisle BELLOWS CHARGER ASSEMBLER, BELLOWS CHARGER ASSEMBLER-C Primary Care Provider Active Dr. Ellis Tsai MD Emergency Provider Active Dr. Rebecca Resendiz DO Admit Provider, Attending Provide r Active Team Status: Active Member Role Status Dates Barber Carlisle BELLOWS CHARGER ASSEMBLER, BELLOWS CHARGER ASSEMBLER-C Primary Care Provider Active Dr. Ellis Tsai MD Emergency Provider Active Dr. Rebecca Resendiz DO Admit Provider, Att ending Provider, Other Provider Active Dr. Serge Banks MD Other Provider Active Dr. Ajit Mcgill DO Other Provider Active Dr. Martín Monique MD Other Provider Active Dr. Krzysztof Pennington MD Other Provider Active Viji Richey BELLOWS CHARGER ASSEMBLER, BELLOWS CHARGER ASSEMBLER-C Other Provider Active Team Status: Active Member Role Status Dates Barber Carlisle BELLOWS CHARGER ASSEMBLER, BELLOWS CHARGER ASSEMBLER-C Primary Care Provider Active Dr. Ellis Tsai MD Emergency Provider Active Dr. Rebecca Resendiz DO Admit Provider, Other Provider Ac tive Dr. Serge Banks MD Other Provider Active Dr. Ajit Mcgill , Other Provider Active Dr. Martín Monique MD Attending Provider, Other Pro vider Active Dr. Krzysztof Pennington MD Other Provider Active Viji Richey BELLOWS CHARGER ASSEMBLER, BELLOWS CHARGER ASSEMBLER-C Other Provider Active Dr. Hernando Padron MD Other Provider Active Dr. Thomas Ahumada MD Other Provider Active Team Status: Active Member Role Status Dates Barber Carlisle BELLOWS CHARGER ASSEMBLER, BELLOWS CHARGER ASSEMBLER-C Primary Care Provider Active Dr. Miroslava Gonzalez MD Attending Provider Active Team Status: Active Member Role Status Dates Barber Carlisle BELLOWS CHARGER ASSEMBLER, BELLOWS CHARGER ASSEMBLER-C Primary Care Provider Active Dr. Ellis Tsai MD Emergency Provider Active Dr. Rebecca Resendiz , DO Admit Provider, Other Provider Ac tive Dr. Serge Banks MD Other Provider Active Dr. Ajit Mcgill DO Other Provider Active Dr. Martín Monique MD Other Provider Active Dr. Krzysztof Pennington MD Other Provider Active Viji Richey BELLOWS CHARGER ASSEMBLER, BELLOWS CHARGER ASSEMBLER-C Other Provider Active Dr. Hernando Padron MD Attending Provider, Other Provid er Active Dr. Thomas Ahumada MD Other Provider Active Team Status: Active Member Role Status Dates Barber Carlisle BELLOWS CHARGER ASSEMBLER, BELLOWS CHARGER ASSEMBLER-C Primary Care Provider Active Dr. Ellis Tsai MD Emergency Provider Active Dr. Rebecca Resendiz , DO Admit Provider, Other Provider Ac tive Dr. Serge Banks MD Other Provider Active Dr. Ajit Mcgill , Other Provider Active Dr. Martín Monique MD Other Provider Active Dr. Krzysztof Pennington MD Other Provider Active Viji Richey NP, BELLOWS CHARGER ASSEMBLER-C Other Provider Active Dr. Hernando Padron MD Other Provider Active Dr. Thomas Ahumada MD Other Provider Active Dr. Miroslava Gonzalez MD Attending Provider Active Team Status: Active Member Role Status Meche Carlisle BELLOWS CHARGER ASSEMBLER, BELLOWS CHARGER ASSEMBLER-C Primary Care Provider Active Dr. Moise Austin MD Attending Provider Active Team Status: Active Member Role Status Meche Carlisle NP, BELLOWS CHARGER ASSEMBLER-C Primary Care Provider Active Dr. Ellis Tsai MD Emergency Provider Active Dr. Rebecca Resendiz , Admit Provider, Other Provider Ac tive Dr. Serge Banks MD Other Provider Active Dr. Ajit Mcgill , Other Provider Active Dr. Martín Monique MD Other Provider Active Dr. Krzysztof Pennington MD Other Provider Active Viji Richey NP, BELLOWS CHARGER ASSEMBLER-C Other Provider Active Dr. Hernando Padron MD Other Provider Active Dr. Thomas Ahumada MD Other Provider Active Dr. Pratima Jaime MD Other Provider Active Dr. Miroslava Gonzalez MD Attending Provider Active Team Status: Active Member Role Status Meche Carlisle NP, BELLOWS CHARGER ASSEMBLER-C Primary Care Provider Active Dr. Ellis Tsai MD Emergency Provider Active Dr. Rebecca Resendiz DO Admit Provider, Other Provider Ac tive Dr. Serge Banks MD Attending Provider, Other Provid er Active Dr. Ajit Mcgill , Other Provider Active Dr. Martín Monique MD Other Provider Active Dr. Krzysztof Pennington MD Other Provider Active Viji Richey NP, BELLOWS CHARGER ASSEMBLER-C Other Provider Active Dr. Hernando Padron MD Other Provider Active Dr. Thomas Ahumada MD Other Provider Active Dr. Pratima Jaime MD Other Provider Active Team Status: Active Member Role Status Meche Carlisle NP, BELLOWS CHARGER ASSEMBLER-C Primary Care Provider Active Dr. Ellis Tsai MD Emergency Provider Active Dr. Rebecca Resendiz , Admit Provider, Other Provider Ac tive Dr. Serge Banks MD Other Provider Active Dr. Ajit Mcgill , Other Provider Active Dr. Martín Monique MD Other Provider Active Dr. Krzysztof Pennington MD Other Provider Active Viji Richey NP, BELLOWS CHARGER ASSEMBLER-C Other Provider Active Dr. Hernando Padron MD Other Provider Active Dr. Thomas Ahumada MD Other Provider Active Dr. Pratima Jaime MD Attending Provider, Other Provid er Active Team Status: Inactive Member Role Status Meche Carlisle BELLOWS CHARGER ASSEMBLER, BELLOWS CHARGER ASSEMBLER-C Primary Care Provider Active Jonathanfausto ELMORE MD Attending Provider Active Team Status: Inactive Member Role Status Meche Carlisle NP, BELLOWS CHARGER ASSEMBLER-C Primary Care Provider Active Dr. Ellis Tsai MD Emergency Provider Active Dr. Rebecca Resendiz DO Admit Provider, Other Provider Ac tive Dr. Serge Banks MD Other Provider Active Dr. Ajit Mcgill , Other Provider Active Dr. Martín Monique MD Other Provider Active Dr. Krzysztof Pennington MD Other Provider Active Viji Richey NP, BELLOWS CHARGER ASSEMBLER-C Other Provider Active Dr. Hernando Padron MD Other Provider Active Dr. Thomas Ahumada MD Other Provider Active Dr. Pratima Jaime MD Attending Provider Active Team Status: Active Member Role Status Dates Barber Carlisle BELLOWS CHARGER ASSEMBLER, BELLOWS CHARGER ASSEMBLER-C Primary Care Provider Active Dr. Moise Austin MD Attending Provider Active Dr. Rebecca Resnediz DO Referring Provider Active Team Status: Active Member Role Status Meche Carlisle BELLOWS CHARGER ASSEMBLER, BELLOWS CHARGER ASSEMBLER-C Primary Care Provider Active Dr. Ellis Tsai MD Emergency Provider Active Dr. Rebecca Resendiz DO Admit Provider, Other Provider Ac tive Dr. Serge Banks MD Other Provider Active Dr. Ajit Mcgill , Other Provider Active Dr. Martín Monique MD Attending Provider, Other Pro vider Active Dr. Krzysztof Pennington MD Other Provider Active Viji Richey NP, BELLOWS CHARGER ASSEMBLER-C Other Provider Active Dr. Hernando Padron MD Other Provider Active Dr. Thomas Ahumada MD Other Provider Active Dr. Pratima Jaime MD Referring Provider Active Team Status: Active Member Role Status Meche Carlisle NP, BELLOWS CHARGER ASSEMBLER-C Primary Care Provider Active Dr. Ellis Tsai MD Emergency Provider Active Dr. Rebecca Resendiz , Admit Provider, Other Provider Ac tive Dr. Serge Banks MD Attending Provider, Other Provid er Active Dr. Ajit Mcgill DO Other Provider Active Dr. Martín Monique MD Other Provider Active Dr. Krzysztof Pennington MD Other Provider Active Viji Richey BELLOWS CHARGER ASSEMBLER, BELLOWS CHARGER ASSEMBLER-C Other Provider Active Dr. Hernando Padron MD Other Provider Active Dr. Thomas Ahumada MD Other Provider Active Dr. Pratima Jaime MD Referring Provider, Other Provid er Active Team Status: Inactive Member Role Status Meche Carlisle BELLOWS CHARGER ASSEMBLER, BELLOWS CHARGER ASSEMBLER-C Primary Care Provider Active Dr. Delfin Jeffries MD Other Provider Active TORRIE COLLAZO Attending Provider, Referring Provider Active Team Status: Inactive Member Role Status Meche Carlisle BELLOWS CHARGER ASSEMBLER, BELLOWS CHARGER ASSEMBLER-C Primary Care Provider, Referri ng Provider Active Dr. Sharmila Jackson MD Attending Provider Active Team Status: Inactive Member Role Status Meche Carlisle BELLOWS CHARGER ASSEMBLER, BELLOWS CHARGER ASSEMBLER-C Primary Care Provider Active Dr. Sharmila Jackson MD Attending Provider, Referring Provider Active Team Status: Active Member Role Status Meche ELMORE MD Primary Care Provider Active Team [...] Status Dates Jonathan ELMORE MD Primary Care Provider, Attending Provider Active Team Status: Inactive Member Role Status Dates Jonathan ELMORE MD Primary Care Provider Active Dr. Shahnaz Way , DO Emergency Provider Active Team Status: Inactive Member Role Status Dates Jonathan ELMORE MD Primary Care Provider Active Dr. Shahnaz Way , DO Attending Provider, Emergency P rovider Active Team Status: Inactive Member Role Status Dates Jonathan ELMORE MD Primary Care Provider, Attending Provider Active Team Status: Active Member Role Status Dates Dr. Jonathan Dillard Sr. , DO Primary Care Provider Active Team Status: Inactive Member Role Status Dates Dr. Jonathan Dillard Sr. , DO Primary Care Provider Active Dr. Calvin Hester , DO Emergency Provider Active Team Status: Inactive [...] Dr. Alecia Navarrete MD Attending Provider Active Quantitative Analyst Marketing Relationship Specialty Start Date End Date Barber Carlisle, BICYCLE SERVICE TECHNICIAN-AERONAUTICS COMMISSION DIRECTOR [address] [place] [id number] PCP - General 07/04/20 Team Status: Active [...] Sr. , DO Primary Care Provider Active Quantitative Analyst Marketing Relationship Specialty Start Date End Date Barber Carlisle APRN-AERONAUTICS COMMISSION DIRECTOR PCP - General 07/04/20 Quantitative Analyst Marketing Relationship Specialty Start Date End Date Barber Carlisle APRN-CNP [address] [place] [address] PCP - General Family Medicine 10/27/23 Quantitative Analyst Marketing Relationship Specialty Start Date End Date Barber Carlisle APRN-AERONAUTICS COMMISSION DIRECTOR [address] [place] [address] PCP - General Family Medicine 10/27/23 Quantitative Analyst Marketing Relationship Specialty Start Date End Date Orestes FREDY Perez [address] [place] [address] PCP - General Family Medicine 10/27/23 Reason for Visit (unrecogniz ed section and content) Specialty Diagnoses / Procedures Referred By Contac t Referred To Contact Diagnoses Colovaginal fistula Intestinal Abscess Procedures [facility] [place] [address] [place] [address] [facility] [place] [id number] [place] [address] Referral ID Status Reason Start Date Expiration Date Visits Re quested Visits Authorized [id number] 1 1 Specialty Diagnoses / Procedures Referred By Contac t Referred To Contact Diagnoses Encounter for preadmission testing Procedures [place] 12 [place] [id number] [address] [place] [id number] Referral ID Status Reason Start Date Expiration Date V isits Requested Visits Authorized [id number] Pending Review 10/28/2023 10/27/2024 1 1 Scheduled [...] mL, intravenous, Once in imaging, Starting on 09/26/23 at 1339, For 1 dose 1339 (Given [...] mg (COMPLETED) 100 mg, oral, Once, On Tue09/26/23 at 0915, For 1 [...] Fink, PharmD)2245 (Due - Provider: Karen Fink, PharmD) nitrofurantoin (macrocrystal-monohydrate) (Macrobid) capsule 100 mg (COMPLETED) [...] RN) 0848 (Given - Provider: Aldo Blood RN)2100 (Due) PRN Medication Order 09/26/2023 09/27/2023 09/28/2023 acetaminophen (Tylenol) tablet 650 mg 650 mg, oral, Every 4 hours PRN, pain mild (1-3), first line, Starting on 09/18/23 at 2019, If ordered PRN for pain, [...] pressure greater than 100 mmHg., Starting on 09/26/23 at 0905, For 1 dose, FOR CORONARY [...] Lindo RN) 1652 (Given - Provider: Aldo Blood RN)2126 (Given - Provider: Aldo Blood RN) 0847 [...] BE BASED ON THE PRIMARY CLINICAL RECORDS. [employer] provides no warranty or guarantee of the accuracy or completeness of information in this document.
[2025-09-18 08:40] LABS: Hematocrit 24.5 % (37-47); Hemoglobin 7.3 g/dL (12.0-15.0); Mean Corp Hgb Conc 29.8 g/dL (32-36); Mean Corpuscular Volume 93.9 fL (81-99); Mean Platelet Vol. 9.5 fl (6.2-12.0); POSITIVE COUNT YES; Platelet Count 83 K/mm3 (150-450); RBC Distribution Width CV 14.2 % (11.6-14.6); RBC Distribution Width SD 47.9 fl (35.1-43.9); Red Blood Count 2.61 M/mm3 (4.2-5.4); White Blood Count 4.3 K/mm3 (4.4-11.0)
[2025-09-18 08:58] LABS: Scan Indicated on CBC? Y/N YES- FLAGS NOTED
[2025-09-18 08:59] LABS: Differential Comment SCANNED
== END ==
LOC: OLS.ACH 05:00
PROVIDERS: PCP Internal Medicine; Visit Provider Internal Medicine
DX: D50.9 Iron deficiency anemia, unspecified (principal)
CPT/HCPCS: 36415; 85027

== ENCOUNTER → 2025-09-25 05:00 | Outpatient (REF) | payer MEDICARE, MEDICAID, SELFPAY ==
[2025-09-25 08:09] LABS: Hematocrit 24.6 % (37-47); Hemoglobin 7.3 g/dL (12.0-15.0)
== END ==
LOC: OLS.ACH 05:00
PROVIDERS: PCP Internal Medicine; Visit Provider Internal Medicine
DX: D50.9 Iron deficiency anemia, unspecified (principal)
CPT/HCPCS: 36415; 85014; 85018

== ENCOUNTER → 2025-10-02 | Outpatient (REF) | payer MEDICARE, MEDICAID, SELFPAY ==
--- OUTSIDE RECORDS SUMMARY | 2025-10-02 04:52 | XMS RPT_ITS | CCD ---
Author Organization [facility] Care Team Providers Care O And M Supervisor Name Role Phone Ellis Martines Unavailable Unavailable PROVIDER, UNKNOWN Unavailable Unavailable Michelle Aguilar Unavailable Unavailab Kandi Zacarias Unavailable Unavailable Barber Carlisle Unavailable Unavailable Pranav Bonds Unavailable Unavailable Update Needed Unavailable Unavailable ORESTES FRAME POLISHER-TOOL AND EQUIPMENT RENTAL CLERKBARBER Primary Care Physician ORESTES FRAME POLISHER-TOOL AND EQUIPMENT RENTAL CLERK, BARBER Primary Care Physician ORESTES FRAME POLISHER-TOOL AND EQUIPMENT RENTAL CLERK, BARBRE Primary Care Physician Orestes MODELING INSTRUCTOR, MODELING INSTRUCTOR-C Barber Primary Care Provider Orestes MODELING INSTRUCTOR, MODELING INSTRUCTOR-C Barber Referring Provider 1([facility] )[phone] Dr. Delfin Jeffries Attending Provider Orestes MODELING INSTRUCTOR, MODELING INSTRUCTOR-C Barber Primary Care Provider Orestes MODELING INSTRUCTOR, MODELING INSTRUCTOR-C Barber Referring Provider 1([facility] )[phone] Dr. Delfin Jeffries Attending Provider Dr. Ellis Tsai Emergency Provider [phone] Dr. Rebecca Resendiz Admit Provider Dr. Rebecca Resendiz Attending Provider [phone] Rebecca Resendiz Other Provider Dr. Serge Banks Other Provider Dr. Ajit Mcgill Other Provider Dr. Martín Monique Other Provider 1([facility])[phone] Krzysztof Pennington Other Provider Unavailab rambo Richey MODELING INSTRUCTOR, MODELING INSTRUCTOR-C Viji Other Provider Dr. Miroslava Gonzalez Attending Provider Dr. Martín Monique Attending Provider Dr. Hernando Padron Other Provider Unavailable Dr. Thomas Ahumada Other Provider Unavaila Dr. Moise Jo Attending Provider Dr. Hernando Padron Attending Provider Unavailable Dr. Pratima Jaime Attending Provider Dr. Pratima Jaime Other Provider Dr. Serge Banks Attending Provider Dr. Rebecca Resendiz Referring Provider Orestes MODELING INSTRUCTOR, MODELING INSTRUCTOR-C [place] Primary Care Provider Orestes MODELING INSTRUCTOR, MODELING INSTRUCTOR-C Barber Referring Provider [phone] Dr. Delfin Jeffries Attending Provider Dr. Pratima Jaime Referring Provider Dr. Sharmila Jackson Attending Provider Orestes MODELING INSTRUCTOR, MODELING INSTRUCTOR-C [place] Primary Care Provider Orestes MODELING INSTRUCTOR, MODELING INSTRUCTOR-C Barber Referring Provider [phone] Dr. Delfin Jeffries Attending Provider Gilma ELMORE MD Jonathan Primary Care Provider Unava ilable Gilma ELMORE MD Jonathan Referring Provider Unavaila Dr. Delfin Hutchins Attending Provider Dr. Jonathan Dillard Sr. Primary Care Provider Dr. Jonathan Dillard Sr. Referring Provider Dr. Delfin Jeffries Attending Provider SOLITARIO STUBBS, DR CAMPOS Attending Unavailabl e LORETHAN FRAME POLISHER-TOOL AND EQUIPMENT RENTAL CLERK, [facility] Unavail renata JEREZ MD, DR CAMPOS Attending Unavailabl e LORETHAN FRAME POLISHER-TOOL AND EQUIPMENT RENTAL CLERK, [facility] Unavail renata JEREZ MD, DR CAMPOS Attending Unavailabl e LORETHAN FRAME POLISHER-TOOL AND EQUIPMENT RENTAL CLERK, BARBER Primary Care Unavail able FLIGHT FRAME POLISHER-TOOL AND EQUIPMENT RENTAL CLERK, RENETTA Attending Unavail able LORSON FRAME POLISHER-TOOL AND EQUIPMENT RENTAL CLERK, [facility] Care Unavail able CRISSY STUBBS, DR OSEI PACHECO Attending Unav ailable LORSON FRAME POLISHER-TOOL AND EQUIPMENT RENTAL CLERK, [facility] Care Unavail able FLIGHT FRAME POLISHER-TOOL AND EQUIPMENT RENTAL CLERK, RENETTA Attending Unavail able LORSON FRAME POLISHER-TOOL AND EQUIPMENT RENTAL CLERK, [facility] Care Unavail able BYRON STUBBS, TRACE Sprague Attending Unavailable LORSON FRAME POLISHER-TOOL AND EQUIPMENT RENTAL CLERK, [facility] Care Unavail able Lorson FRAME POLISHER-TOOL AND EQUIPMENT RENTAL CLERK, [facility] Primary Care Pr ovider Deperro Sr., Dr. Castillo Primary Care Provider Gilma Sr., Dr. Castillo Referring Provider [phone] [address]. Delfin Jeffries Attending Provider Dr. Calvin Hester Emergency Provider Dr. Lucia Jurado Attending Provider [phone] Dr. Calvin Hester Referring Provider Dr. Susy Delarosa Attending Provider VARSHA SOTELO Attending Unavail able ORESTES, [facility] Unavaila ble Lorson FRAME POLISHER-TOOL AND EQUIPMENT RENTAL CLERK, [facility] Pr ovider Lorson FRAME POLISHER-TOOL AND EQUIPMENT RENTAL CLERK, [facility] Pr ovider ORESTES [facility] Unavaila ble DELFIN MELARA Admitting Unavailable VARSHA SOTELO Attending Unavail able VARSHA SOTELO Admitting Unavail able VARSHA SOTELO Attending Unavail able ORESTES, [facility] Unavaila ble LORSON, [facility] Unavaila ble LORSON, [facility] Unavaila ble ELIDA VILLAREAL Attending Unavailable LORSON, [facility] Care Unavaila ble LORSON, [facility] Care Unavaila ble RITU HARRELL Referring Unavailable LORSON, [facility] Unavaila ble Deperro OLS, Jonathan Attending Unavailable Deperro OLS, Jonathan Referring Unavailable Deperro Sr., Jonathan Primary Care Unavailable Deperro OLS, Jonathan Referring Unavailable Deperro Sr., Jonathan Primary Care Unavailable Deperro OLS, Jonathan Attending Unavailable Deperro Sr., Jonathan Primary Care Unavailable Deperro OLS, Jonathan Attending Unavailable Deperro Sr., Jonathan Primary Care Unavailable Deperro OLS, Jonathan Attending Unavailable Royce Vigil Attending Unavailable Deperro Sr., Jonathan Primary Care Unavailable Delfin Jeffries Attending Unavailable Deperro Sr., Jonathan Referring Unavailable Deperro Sr., Jonathan Primary Care Unavailable Deperro OLS, Jonathan Attending Unavailable Deperro Sr., Jonathan Primary Care Unavailable Deperro OLS, Jonathan Attending Unavailable Deperro Sr., Jonathan Primary Care Unavailable Allergies Allergy Classification Reported Allergen(s) Allergy Type Date of Onset Reaction(s) Facility (20 sources) cyclobenzaprine; Translations: [cyclobenzaprine] Drug Allergy 3 [facility] (20 sources) tiZANidine; Translations: [tizanidine] Drug Allergy 3 [facility] (6 sources) Acetaminophen / oxyCODONE; Translations: [OXYCODONE-ACETAMIN OPHEN] Drug Allergy 6 Palpitations [facility] 3 Repository (1 source) cyclobenzaprine Drug Allergy 5 [facility] Repository (1 source) tiZANidine Drug Allergy 5 [facility] Repository Medications Current Medications Medication Drug Class(es) [...] 19, 2023 12:00am take 2 tablets by ne ut once daily at bedtime acetaminophen (Tylenol) [...] preference, # 1 EA, 0 Refill(s), Pharmacy: [facility] 166, cm, 09/09/20 11:16:00 [...] # 60 cap(s), 11 Refill(s), Pharmacy: [facility], 166, cm, 09/09/20 11:16:00 EDT, Height, [...] diabetes, # 1 EA, 0 Refill(s), Pharmacy: [facility], 165, cm, 01/16/21 13:33:00 EST, Height, 94.9, kg, 09/16/21 13:29:00 EDT, Dosing Weight Start Date: 09/28/21 Status: Ordered Start: 09-23-2021 DME MISCellane ous See Instructions, True Plus Lancets check blood sugar once daily. #1 box for 90 day supply x 0 refills Dx: diabetes, # 1 EA, 3 Refill(s), Pharmacy: [facility], Diabetes, 165, cm, 01/16/21 13:33:00 EST, Height, 94.9, kg, 09/16/21... Start Date: 09/23/21 Status: Ordered Start: 04-30-2021 DME MISCellane ous See Instructions, True Plus Lancets check blood sugar once daily. #1 box for 90 day supply x 0 refills Dx: diabetes, # 1 EA, 0 Refill(s), Pharmacy: [facility], Diabetes, 165, cm, 01/16/21 13:33:00 EST, Height, 96.36, kg, ... Start Date: 04/30/21 Status: Ordered Start: 04-30-2021 DME MISCellane ous See Instructions, Alcohol Pads Use as directed Dispense 90 day supply x 0 refills DX: diabetes, # 1 EA, 0 Refill(s), Pharmacy: [facility], 165, cm, 01/16/21 13:33:00 [...] Ordered docusate sodium 50 mg / sennosides, senior living 8.6 mg oral tablet (20 sources) Start: [...] Start: 07-20-2022 take 1 tablet by yolanda twice daily docusate-senna 50 mg-8.6 mg oral [...] at 2000 Indications: venous thrombosis estrogens, conjugated (senior living) 0.625 mg/ml vaginal cream (8 sources) Estrogen [...] # 16 gram(s), 11 Refill(s), [facility] [address] [facility], cm, 09/09/20 11:16:00 EDT, Height, kg, 09/09/20 11:16:00 EDT, Dosing Weight Start Date: 10/28/20 Status: Ordered folic acid 1 mg oral tablet (20 sources) Start: 11-11-2022 take 1 mg by mouth once daily Folic Acid Active 1 MG PO DAILY November 11, 2022 12:00am Freestyle Cascadia 14 day sensor (1 source) Start: 09-16-2021 Freestyle Read er 14 day sensor See Instructions, 1 month supply, # 2 EA, 0 Refill(s), Pharmacy: [facility], 165, cm, 01/16/21 13:33:00 [...] qDay, # 30 tab(s), 3 Refill(s), Pharmacy: [facility], Diarrhea Diabetes mellitus type 2, [...] qDay, # 90 tab(s), 3 Refill(s), Pharmacy: [facility], 165vira, 05/04/22 10:05:00 EDT, Height, kg, 05/04/22 10:05:00 [...] qDay, # 90 tab(s), 3 Refill(s), Pharmacy: [facility], vira Covarrubias, 01/16/21 13:33:00 EST, Height, kg, 04/06/21 13:21:00 EDT, Dosing Weight Start Date: 04/22/21 Status: Ordered Start: 06-11-2013 take 1 tablet by [facility] every twenty-four hours Metoprolol Succinate ER 50 [...] qDay, # 90 tab(s), 3 Refill(s), Pharmacy: [facility], 165, cm, 05/04/22 [...] qDay, # 90 tab(s), 3 Refill(s), Pharmacy: [facility], 165, cm, 01/16/21 13:33:00 EST, Height, kg, 04/06/21 13:21:00 EDT, Dosing Weight Start Date: 04/22/21 Status: Ordered nitroglycerin 0.4 mg sublingual tablet (3 sources) Start: 04-22-2021 nitroglycerin 0.4 mg sublingual tablet See Instructions, DISSOLVE 1 TABLET UNDER THE TONGUE NEEDED FOR CHEST PAIN EVERY 5 MINUTES UP TO 3 TIMES. IF NO RELIEF CALL 911., # 25 tab(s), 0 Refill(s), Pharmacy: [facility], 165, cm, 01/16/21 13:33:00 EST, Height, kg, ... Start Date: 04/22/21 Status: Ordered nystatin 100,000 units/g topical cream (1 source) Start: 09-16-2021 End: 12-09-2021 nystatin 100,000 units/g topical cream Apply 1 marcy, Topical, BID, X 14 day(s), # 30 gram(s), 5 Refill(s), Pharmacy: [facility], Cream, 165, cm, 01/16/21 [...] Start: 09-26-2023 take 0.5 tablet by m out twice daily sacubitriL-valsartan (Entresto) 24-26 mg tablet [...] Start: 08-09-2023 take 2 tablets by mo [facility] once daily Cyanocobalamin (Vitamin B-12) (B-12 Dots) [...] Ipratropium-Albuterol Discontinued 3 ML INHALATION Q8H 0 February 24, 2023 11:00pm May 04, 2023 [...] 2X/week, # 42.5 gram(s), 11 Refill(s), [facility], 165, cm, 01/06/22 9:22:00 [...] once daily. For 7 days ending 09/20/23. ([employer] Ultimate Jie Probiotic 15 BILLION per SNF list) 0 09/27/2023 10/31/2023 Discontinued (Discontinued by another clinician) Start: 09-27-2023 take 1 capsule by [facility] once daily L. acidophilus-L. rhamnosus (Probiotic) 15 billion cell capsule Indications: Dilated cardiomyopathy (CMS/HCC) Take 1 capsule by mouth once daily. For 7 days ending 09/20/23. ([employer] Ultimate Jie Probiotic 15 BILLION per SNF [...] Daily, # 90 tab(s), 3 Refill(s), Pharmacy: [facility], 165, cm, 01/16/21 13:33:00 [...] Refills: 0 Start : 26-Jun-2013 Active End: 12-18-2023 take 1 tablet by mouth once daily [...] Date: 07/20/22 Status: Ordered polyethylene glycol 3350 19136 mg powder for oral solution (20 sources) [...] Date: 07/20/22 Status: Ordered polyethylene glycol 3350 054924 mg / potassium chloride 2970 mg / sodium bicarbonate 6740 mg / sodium chloride 5860 mg / sodium sulfate 26049 mg powder for oral solution (1 source) [...] source) Start: 09-21-2023 End: 09-21-2023 Starting on 09/21/23 at 0729, For 1 dose Created by [...] anemia, unspecified; Translations: [Iron deficiency anemia, unspecified] Onset: 5 Episodic Deficiency and other anemia (16 sources) [...] Onset: 6 08-27-2019 Chronic Diverticulosis and diverticulitis (15 sources) Diverticulitis; Translations: [Diverticulitis of intestine, part [...] in urine; Translations: [Hematuria, unspecified] 09-08-2023 Episodic Hemorrhoids (1 source) Residual hemorrhoidal skin tags; Translations: [Residual hemorrhoidal skin tags] Onset: 5 Episodic Intestinal obstruction without hernia (5 sources) Stricture of colon; Translations: [Other intestinal obstruction unspecified as to partial versus complete obstruction] Onset: 3 08-29-2023 Episodic Joint disorders and dislocations; trauma-related (2 sources) Traumatic dislocation of joint of cervical vertebra; Translations: [Dislocation of C6/C7 cervical vertebrae, initial encounter] Episodic Malaise and fatigue (6 sources) Asthenia; Translations: [Weakness] 08-10-2023 Episodic Neoplasms of unspecified nature or uncertain behavior (1 source) Neoplasm of uncertain behavior of colon; Translations: [Neoplasm of uncertain behavior of colon] Onset: 5 Episodic Noninfectious gastroenteritis (10 sources) Colitis; Translations: [...] Test Name Value Interpretation Reference Range Facility Oncology Visit Reporton 09-14 Oncology Visit Report [facility] [address] [place] [id number] OFFICE VISIT Date of Service: 09/26/25 0934 MR#: [id number] Acct: [id number] Name: POLI RAMIREZ Rep #: [id number] : 1950 From: Delfin Jeffries MD Age/Sex: 74/F Location: [email or web address] Status: Signed HPI Subjective Date of Service 10/03/25 Chief Complaint F/u for PACO. History of Present Illness 74-year-old woman with H/O L breast cancer s/p L lumpectomy and RT was found to have thrombocytopenia in 2013, had a bone marrow biopsy on 04/01/2014. Bone marrow biopsy showed normocellular marrow with trilineage hematopoiesis, flow cytometry was negative for non-Hodgkin's lymphoma, metastatic malignancy, granuloma and acid-fast bacilli. She had blood work on 11/01/2022 which showed leukopenia, anemia and thrombocytopenia with low vitamin B12 and iron. She was started on vitamin B12 and iron supplements orally and referred for further evaluation. Was found to have Iron deficiency Anemia, elected to do Oral Iron supplements. Was seen in [facility], CT chest on 02/18/2023 showed L breast nodule, multiple small lung nodules. CT neck done on 03/18/2023 showed post operative changes. Got iron infusion at [place]. Comes for follow up, found to have Anemia and referred for follow up. Has Folley's Cath in place. [facility] Medical History Colitis On mechanically assisted ventilation [...] Anemia Unspecified abnormalities of gait and mobility Surgical History History of lumpectomy of left breast Hx of cholecystectomy Hx of cervical spine surgery Family History Sister Breast cancer Grandmother Diabetes Social History housing: detention Smoking Status: Former smoker alcohol intake: never substance use type: does not use Intake Vital Signs 09/10/25 18:33 09/26/25 09:44 09/26/25 09:46 Height 5 ft 5 in 5 ft 5 in 5 ft 5 in Weight: 78.245 kg BMI 28.7 BP 105/61 Blood Pressure Location Rt brachial Position Sitting Respiration 18 Pulse 66 Pulse Source Monitor Temp 98.5 F Temperature Source Temporal Artery Pulse Oximetry (%) 99 Oxygen Delivery Method nasal canula Oxygen Flow Rate (L/min) 2 Intake Is patient in pain?: No Allergies cyclobenzaprine (From Flexeril) Allergy (Verified 09/26/25 09:46) Other tizanidine (From Zanaflex) Allergy (Verified 09/26/25 09:46) Other Medications ???Medication ???Instructions ???Recorded ???Confirmed ???Type bisacodyl 10 mg rectal suppository 10 mg AL DAILY PRN constipation 11/11/22 09/26/25 History acetaminophen 325 mg tablet 650 mg PO QHS PAIN 04/19/23 History ferrous sulfate 325 mg (65 mg 325 mg PO BID 05/04/23 09/26/25 Hi story iron) tablet ondansetron HCl 4 mg tablet 4 mg PO Q8H PRN nausea and vomitin g 05/04/23 09/26/25 History simethicone 80 mg chewable tablet 80 mg PO DAILY abdominal distenti on 05/04/23 09/26/25 History (Gas Relief (simethicone)) magnesium hydroxide 400 mg/5 mL 30 ml PO DAILY PRN constipation 09/26/25 History oral suspension conjugated estrogens 0.625 mg/gram 1 applic vaginal QHS 09/14/23 History vaginal cream (Premarin) furosemide 20 mg tablet 20 mg PO DAILY 09/14/23 09/26/25 H istory amoxicillin 875 mg-potassium 1 tab PO BID 09/26/25 09/26/25 His tory clavulanate 125 mg tablet dicyclomine 20 mg tablet 20 mg PO .qid abdominal pain 09/26 (more content not included)... Normal [facility] HH, Hemoglobin AND Hematocri ton 09-25-2025 Hematocrit (Bld) [Volume fraction] 24.6 % Low 37-47 [facility] Comment on above: Order Comment: 310-2 Performed By: #### L 100.0600 #### [facility] [address] [place], [address] Hemoglobin (Bld) [Mass/Vol] 7.3 g/dL Low 12.0-15.0 [facility] Comment on above: Order Comment: 310-2 Performed By: #### L 100.0600 #### [facility] [address] [place], [address] CBC-Complete Blood Cnt No Di ffon 09-18-2025 Erythrocyte distribution width (RBC) [Ratio] 14.2 % Normal 11.6-14.6 [facility] Comment on above: Order Comment: 310.2 Performed By: #### L 500.4050, L100.0500 #### [facility] [address] [place], [address] Hematocrit (Bld) [Volume fraction] 24.5 % Low 37-47 [facility] Comment on above: Order Comment: 310.2 Performed By: #### L 500.4050, L100.0500 #### [facility] [address] [place], [address] Hemoglobin (Bld) [Mass/Vol] 7.3 g/dL Low 12.0-15.0 [facility] Comment on above: Order Comment: 310.2 Performed By: #### L 500.4050, L100.0500 #### [facility] [address] [place], [address] MCH (RBC) [Entitic mass] 28.0 pg Normal 27.0-32.0 [facility] Comment on above: Order Comment: 310.2 Performed By: #### L 500.4050, L100.0500 #### [facility] [address] [place], [address] MCHC (RBC) [Mass/Vol] 29.8 g/dL Low 32-36 [facility] Comment on above: Order Comment: 310.2 Performed By: #### L 500.4050, L100.0500 #### [facility] [address] [place], [address] MCV (RBC) [Entitic vol] 93.9 fL Normal 81-99 [facility] Comment on above: Order Comment: 310.2 Performed By: #### L 500.4050, L100.0500 #### [facility] [address] [place], [address] Platelet mean volume (Bld) [Entitic vol] 9.5 fL Normal 6.2-12.0 [facility] Comment on above: Order Comment: 310.2 Performed By: #### L 500.4050, L100.0500 #### [facility] [address] [place], [address] Platelets (Bld) [#/Vol] 83 10*3/uL Low 150-450 [facility] Comment on above: Order Comment: 310.2 Performed By: #### L 500.4050, L100.0500 #### [facility] [address] [place], [address] RBC (Bld) [#/Vol] 2.61 10*6/uL Low 4.2-5.4 [facility] Comment on above: Order Comment: 310.2 Performed By: #### L 500.4050, L100.0500 #### [facility] [address] [place], [address] RDW SD 47.9 fl High 35.1-43.9 [facility] Comment on above: Order Comment: 310.2 Performed By: #### L 500.4050, L100.0500 #### [facility] [address] [place], [address] WBC (Bld) [#/Vol] 4.3 10*3/uL Low 4.4-11.0 [facility] Comment on above: Order Comment: 310.2 Performed By: #### L 500.4050, L100.0500 #### [facility] [address] [place], [address] Differential Commenton 09-18 SMEAR COMMENT SCANNED Normal [facility] Comment on above: Order Comment: 310.2 Performed By: #### L 500.4050, L100.0500 #### [facility] [address] [place], [address] HH, Hemoglobin AND Hematocri ton 09-11-2025 Hematocrit (Bld) [Volume fraction] 28.5 % Low 37-47 [facility] Comment on above: Order Comment: 310.2 Performed By: #### L 500.4050, L100.0500 #### [facility] [address] [place], [address] Hemoglobin (Bld) [Mass/Vol] 8.4 g/dL Low 12.0-15.0 [facility] Comment on above: Order Comment: 310.2 Performed By: #### L 500.4050, L100.0500 #### [facility] [address] [place], [address] Basic Metabolic Profile (BMP )on 09-10-2025 BUN/CRE 15.9 RATIO Normal 10-20 [facility] Comment on above: Performed By: #### L 100.0500, L500.2500, BTS #### [facility] [address] [place], [address] Calcium [Mass/Vol] 8.5 mg/dL Normal 7.6-11.0 [facility] Comment on above: Performed By: #### L 100.0500, L500.2500, BTS #### [facility] [address] [place], [address] Chloride [Moles/Vol] 101 mmol/L Normal 98-108 [facility] Comment on above: Performed By: #### L 100.0500, L500.2500, BTS #### [facility] [address] [place], [address] CO2 [Moles/Vol] 34.5 mmol/L High 21.0-32.0 [facility] Comment on above: Performed By: #### L 100.0500, L500.2500, BTS #### [facility] [address] [place], [address] Creatinine [Mass/Vol] 0.82 mg/dL Normal 0.70-1.20 [facility] Comment on above: Performed By: #### L 100.0500, L500.2500, BTS #### [facility] [address] [place], [address] ECRCL 62.66 ml/min Normal 50-250 [facility] Comment on above: Performed By: #### L 100.0500, L500.2500, BTS #### [facility] [address] [place], [address] GAP 9 Normal 5-15 [facility] Comment on above: Performed By: #### L 100.0500, L500.2500, BTS #### [facility] [address] [place], [address] GFR/1.73 sq M.predicted among non-blacks MDRD (S/P/Bld) [Vol rate/Area] 74 mL/min/{1.73_m2} Normal >60 [facility] Comment on above: Result Comment: mL/m in/1.73m2 CKD-EPI Creatinine Equation (2020) Performed By: #### L 100.0500, L500.2500, BTS #### [facility] [address] [place], [address] Glucose [Mass/Vol] 182 mg/dL High 70-99 [facility] Comment on above: Performed By: #### L 100.0500, L500.2500, BTS #### [facility] [address] [place], [address] Potassium [Moles/Vol] 4.3 mmol/L Normal 3.3-5.1 [facility] Comment on above: Result Comment: Hemo lysis present, Results??could be affected. ?? Performed By: #### L 100.0500, L500.2500, BTS #### [facility] [address] [place], [address] Sodium [Moles/Vol] 145 mmol/L Normal 133-145 [facility] Comment on above: Performed By: #### L 100.0500, L500.2500, BTS #### [facility] [address] [place], [address] Urea nitrogen [Mass/Vol] 13 mg/dL Normal 4-19 [facility] Comment on above: Performed By: #### L 100.0500, L500.2500, BTS #### [facility] [address] [place], [address] CBC-Complete Blood Cnt No Di ffon 09-10-2025 Erythrocyte distribution width (RBC) [Ratio] 14.3 % Normal 11.6-14.6 [facility] Comment on above: Performed By: #### L 100.0500, L500.2500, BTS #### [facility] [address] [place], [address] Hematocrit (Bld) [Volume fraction] 26.5 % Low 37-47 [facility] Comment on above: Performed By: #### L 100.0500, L500.2500, BTS #### [facility] [address] [place], [address] Hemoglobin (Bld) [Mass/Vol] 7.9 g/dL Low 12.0-15.0 [facility] Comment on above: Performed By: #### L 100.0500, L500.2500, BTS #### [facility] [address] [place], [address] MCH (RBC) [Entitic mass] 27.8 pg Normal 27.0-32.0 [facility] Comment on above: Performed By: #### L 100.0500, L500.2500, BTS #### [facility] [address] [place], [address] MCHC (RBC) [Mass/Vol] 29.8 g/dL Low 32-36 [facility] Comment on above: Performed By: #### L 100.0500, L500.2500, BTS #### [facility] [address] [place], [address] MCV (RBC) [Entitic vol] 93.3 fL Normal 81-99 [facility] Comment on above: Performed By: #### L 100.0500, L500.2500, BTS #### [facility] [address] [place], [address] Platelet mean volume (Bld) [Entitic vol] 10.7 fL Normal 6.2-12.0 [facility] Comment on above: Performed By: #### L 100.0500, L500.2500, BTS #### [facility] [address] [place], [address] Platelets (Bld) [#/Vol] 111 10*3/uL Low 150-450 [facility] Comment on above: Performed By: #### L 100.0500, L500.2500, BTS #### [facility] [address] [place], [address] RBC (Bld) [#/Vol] 2.84 10*6/uL Low 4.2-5.4 [facility] Comment on above: Performed By: #### L 100.0500, L500.2500, BTS #### [facility] [address] [place], [address] RDW SD 48.1 fl High 35.1-43.9 [facility] Comment on above: Performed By: #### L 100.0500, L500.2500, BTS #### [facility] [address] [place], [address] WBC (Bld) [#/Vol] 5.1 10*3/uL Normal 4.4-11.0 [facility] Comment on above: Performed By: #### L 100.0500, L500.2500, BTS #### [facility] [address] [place], [address] Emergency Department Summary on 09-10-2025 Emergency Department Summary [facility] Medical Records Department [address] [place] [address] Emergency Department Summary 09/10/25 MR#: [id number] Acct: [id number] Name: POLI RAMIREZ Rep #: [id number] : 1950 74 From: Royce Vigil MD [...] Symptoms: Patient denies orthostatic symptoms or dyspnea, [place] exertion, chest bigg Narrative Narrative: Patient is [...] Prior similar symptoms: Yes Recent Illness[facility] Medical History Colitis On mechanically assisted ventilation [...] bisacodyl 10 mg rectal suppository 10 mg AL DAILY PRN constipation 11/11/22 Unknown History cranberry [...] constipation Unkno (more content not included)... Normal [facility] Stool Occult Blood iFOBon STOB Positive Normal [facility] Comment on above: Performed By: #### M 100.7900 #### [facility] [address] [place], [address] Type AND Screenon 09-10-2025 Ab SCREEN GEL Negative Normal [facility] Comment on above: Order Comment: HGI Performed By: #### L 100.0500, L500.2500, BTS #### [facility] [address] [place], [address] HH, Hemoglobin AND Hematocri ton 09-09-2025 Hematocrit (Bld) [Volume fraction] 24.4 % Low 37-47 [facility] Comment on above: Order Comment: 310.2 Performed By: #### L 500.4050, L100.0500 #### [facility] [address] [place], [address] Hemoglobin (Bld) [Mass/Vol] 7.0 g/dL Low 12.0-15.0 [facility] Comment on above: Order Comment: 310.2 Performed By: #### L 500.4050, L100.0500 #### [facility] [address] [place], [address] Ferritinon 09-06-2025 Ferritin [Mass/Vol] 52 ng/mL Normal 22-378 [facility] Comment on above: Order Comment: 310.2 Performed By: #### L 500.4050, L100.0500 #### [facility] [address] [place], [address] Iron+Iron Binding Capacityon 09-06-2025 TIBC 182 ug/dL Low 250-450 [facility] Comment on above: Order Comment: 310.2 Performed By: #### L 500.4050, L100.0500 #### [facility] [address] [place], [address] Vitamin B12on 09-06-2025 Cobalamin (Vitamin B12) [Mass/Vol] 195 pg/mL Normal 180-914 [facility] Comment on above: Order Comment: 310.2 Performed By: #### L 500.4050, L100.0500 #### [facility] [address] [place], [address] CBC-Complete Blood Cnt No Di ffon 09-04-2025 Platelets (Bld) [#/Vol] 91 10*3/uL Low 150-450 [facility] Comment on above: Order Comment: 310.2 Performed By: #### L 100.0500, L500.4050, L501.9985 #### [facility] [address] [place], [address] Comprehensive Metabolic Prof ilon 09-04-2025 Albumin [Mass/Vol] 3.4 g/dL Normal 3.4-4.8 [facility] Comment on above: Order Comment: 310.2 Performed By: #### L 500.4050, L100.0500 #### [facility] [address] [place], [address] Albumin/Globulin [Mass ratio] 1.2 {ratio} Normal 0.9-2.4 [facility] Comment on above: Order Comment: 310.2 Performed By: #### L 500.4050, L100.0500 #### [facility] [address] [place], [address] ALK PHOS 61 U/L Normal 35-104 [facility] Comment on above: Order Comment: 310.2 Performed By: #### L 500.4050, L100.0500 #### [facility] [address] [place], [address] ALT [Catalytic activity/Vol] U/L Normal <=34 [facility] Comment on above: Order Comment: 310.2 Performed By: #### L 500.4050, L100.0500 #### [facility] [address] [place], [address] AST [Catalytic activity/Vol] 14 U/L Normal <=31 [facility] Comment on above: Order Comment: 310.2 Performed By: #### L 500.4050, L100.0500 #### [facility] [address] [place], [address] Bilirubin [Mass/Vol] 0.22 mg/dL Normal 0.00-1.30 [facility] Comment on above: Order Comment: 310.2 Performed By: #### L 500.4050, L100.0500 #### [facility] [address] [place], [address] BUN/CRE 29.8 RATIO High 10-20 [facility] Comment on above: Order Comment: 310.2 Performed By: #### L 500.4050, L100.0500 #### [facility] [address] [place], [address] Calcium [Mass/Vol] 8.4 mg/dL Normal 7.6-11.0 [facility] Comment on above: Order Comment: 310.2 Performed By: #### L 500.4050, L100.0500 #### [facility] [address] [place], [address] Chloride [Moles/Vol] 104 mmol/L Normal 98-108 [facility] Comment on above: Order Comment: 310.2 Performed By: #### L 500.4050, L100.0500 #### [facility] [address] [place], [address] CO2 [Moles/Vol] 35.7 mmol/L High 21.0-32.0 [facility] Comment on above: Order Comment: 310.2 Performed By: #### L 500.4050, L100.0500 #### [facility] [address] [place], [address] Creatinine [Mass/Vol] 0.53 mg/dL Low 0.70-1.20 [facility] Comment on above: Order Comment: 310.2 Performed By: #### L 500.4050, L100.0500 #### [facility] [address] [place], [address] GAP 7 Normal 5-15 [facility] Comment on above: Order Comment: 310.2 Performed By: #### L 500.4050, L100.0500 #### [facility] [address] [place], [address] GFR/1.73 sq M.predicted among non-blacks MDRD (S/P/Bld) [Vol rate/Area] 96 mL/min/{1.73_m2} Normal >60 [facility] Comment on above: Order Comment: 310.2 Result Comment: mL/m in/1.73m2 CKD-EPI Creatinine Equation (2020) Performed By: #### L 500.4050, L100.0500 #### [facility] [address] [place], [address] Globulin (S) [Mass/Vol] 2.7 g/dL Normal 2.2-4.2 [facility] Comment on above: Order Comment: 310.2 Performed By: #### L 500.4050, L100.0500 #### [facility] [address] [place], [address] Glucose [Mass/Vol] 118 mg/dL High 70-99 [facility] Comment on above: Order Comment: 310.2 Performed By: #### L 500.4050, L100.0500 #### [facility] [address] [place], [address] Potassium [Moles/Vol] 3.8 mmol/L Normal 3.3-5.1 [facility] Comment on above: Order Comment: 310.2 Performed By: #### L 500.4050, L100.0500 #### [facility] [address] [place], [address] Sodium [Moles/Vol] 146 mmol/L High 133-145 [facility] Comment on above: Order Comment: 310.2 Performed By: #### L 500.4050, L100.0500 #### [facility] [address] [place], [address] T PROT 6.1 g/dL Normal 5.9-8.4 [facility] Comment on above: Order Comment: 310.2 Performed By: #### L 500.4050, L100.0500 #### [facility] [address] [place], [address] Urea nitrogen [Mass/Vol] 16 mg/dL Normal 4-19 [facility] Comment on above: Order Comment: 310.2 Performed By: #### L 500.4050, L100.0500 #### [facility] [address] [place], [address] Hemoglobin A1con 09-04-2025 HbA1c (Bld) [Mass fraction] % Normal <=5.6 [facility] Comment on above: Order Comment: 310.2 Result Comment: Norm al < 5.7 % Prediabetic 5.7 - 6.4 % Diabetic >or= 6.5 % Please note range changes. Performed By: #### L 500.4050, L100.0500 #### [facility] [address] [place], [address] CBC-Complete Blood Cnt No Di ffon 09-03-2025 HCT Normal 37-47 [facility] Comment on above: Order Comment: 310.2 Result Comment: KELLY CHAVEZ SUSY @610. TRY 09/04/25 Performed By: #### L 500.4050, L100.0500 #### [facility] [address] [place], [address] HGB Normal 12.0-15.0 [facility] Comment on above: Order Comment: 310.2 Result Comment: KELLY CHAVEZ SUSY @610. TRY 09/04/25 Performed By: #### L 500.4050, L100.0500 #### [facility] [address] [place], [address] MCH Normal 27.0-32.0 [facility] Comment on above: Order Comment: 310.2 Result Comment: KELLY CHAVEZ SUSY @610. TRY 09/04/25 Performed By: #### L 500.4050, L100.0500 #### [facility] [address] [place], [address] MCHC Normal 32-36 [facility] Comment on above: Order Comment: 310.2 Result Comment: KELLY CHAVEZ SUSY @610. TRY 09/04/25 Performed By: #### L 500.4050, L100.0500 #### [facility] [address] [place], [address] MCV Normal 81-99 [facility] Comment on above: Order Comment: 310.2 Result Comment: KELLY JAIN @610. TRY 09/04/25 Performed By: #### L 500.4050, L100.0500 #### [facility] [address] [place], [address] PLT Normal 150-450 [facility] Comment on above: Order Comment: 310.2 Result Comment: KELLY JAIN @610. TRY 09/04/25 Performed By: #### L 500.4050, L100.0500 #### [facility] [address] [place], [address] RBC Normal 4.2-5.4 [facility] Comment on above: Order Comment: 310.2 Result Comment: KELLY JAIN @610. TRY 09/04/25 Performed By: #### L 500.4050, L100.0500 #### [facility] [address] [place], [address] RDW CV Normal 11.6-14.6 [facility] Comment on above: Order Comment: 310.2 Result Comment: KELLY JAIN @610. TRY 09/04/25 Performed By: #### L 500.4050, L100.0500 #### [facility] [address] [place], [address] RDW SD Normal 35.1-43.9 [facility] Comment on above: Order Comment: 310.2 Result Comment: KELLY JAIN @610. TRY 09/04/25 Performed By: #### L 500.4050, L100.0500 #### [facility] [address] [place], [address] WBC Normal 4.4-11.0 [facility] Comment on above: Order Comment: 310.2 Result Comment: KELLY JAIN @610. TRY 09/04/25 Performed By: #### L 500.4050, L100.0500 #### [facility] [address] [place], [address] Comprehensive Metabolic Prof iljose d 09-03-2025 ALB Normal 3.4-4.8 [facility] Comment on above: Order Comment: 310.2 Result Comment: KELLY TOLD SUSY @610. TRY 09/04/25 Performed By: #### L 500.4050, L100.0500 #### [facility] [address] [place], [address] ALK PHOS Normal 35-104 [facility] Comment on above: Order Comment: 310.2 Result Comment: UTO TOLD SUSY @610. TRY 09/04/25 Performed By: #### L 500.4050, L100.0500 #### [facility] [address] [place], [address] ALT Normal <=34 [facility] Comment on above: Order Comment: 310.2 Result Comment: UTO TOLD SUSY @610. TRY 09/04/25 Performed By: #### L 500.4050, L100.0500 #### [facility] [address] [place], [address] AST Normal <=31 [facility] Comment on above: Order Comment: 310.2 Result Comment: KELLY TOLD SUSY @610. TRY 09/04/25 Performed By: #### L 500.4050, L100.0500 #### [facility] [address] [place], [address] BUN Normal 4-19 [facility] Comment on above: Order Comment: 310.2 Result Comment: KELLY TOLD SUSY @610. TRY 09/04/25 Performed By: #### L 500.4050, L100.0500 #### [facility] [address] [place], [address] BUN/CRE Normal 10-20 [facility] Comment on above: Order Comment: 310.2 Result Comment: UTO TOLD SUSY @610. TRY 09/04/25 Performed By: #### L 500.4050, L100.0500 #### [facility] [address] [place], [address] Calcium Normal 7.6-11.0 [facility] Comment on above: Order Comment: 310.2 Result Comment: KELLY JAIN @610. TRY 09/04/25 Performed By: #### L 500.4050, L100.0500 #### [facility] [address] [place], [address] CL Normal 98-108 [facility] Comment on above: Order Comment: 310.2 Result Comment: KELLY JAIN @610. TRY 09/04/25 Performed By: #### L 500.4050, L100.0500 #### [facility] [address] [place], [address] CO2 Normal 21.0-32.0 [facility] Comment on above: Order Comment: 310.2 Result Comment: KELLY JAIN @610. TRY 09/04/25 Performed By: #### L 500.4050, L100.0500 #### [facility] [address] [place], [address] CREAT,SERUM Normal 0.70-1.20 [facility] Comment on above: Order Comment: 310.2 Result Comment: KELLY JAIN @610. TRY 09/04/25 Performed By: #### L 500.4050, L100.0500 #### [facility] [address] [place], [address] eGFR Normal >60 [facility] Comment on above: Order Comment: 310.2 Result Comment: KELLY JAIN @610. TRY 09/04/25 Performed By: #### L 500.4050, L100.0500 #### [facility] [address] [place], [address] GAP Normal 5-15 [facility] Comment on above: Order Comment: 310.2 Result Comment: KELLY JAIN @610. TRY 09/04/25 Performed By: #### L 500.4050, L100.0500 #### [facility] [address] [place], [address] GLU Normal 70-99 [facility] Comment on above: Order Comment: 310.2 Result Comment: KELLY JAIN @610. TRY 09/04/25 Performed By: #### L 500.4050, L100.0500 #### [facility] [address] [place], [address] Potassium Normal 3.3-5.1 [facility] Comment on above: Order Comment: 310.2 Result Comment: KELLY JAIN @610. TRY 09/04/25 Performed By: #### L 500.4050, L100.0500 #### [facility] [address] [place], [address] T BILI Normal 0.00-1.30 [facility] Comment on above: Order Comment: 310.2 Result Comment: KELLY JAIN @610. TRY 09/04/25 Performed By: #### L 500.4050, L100.0500 #### [facility] [address] [place], [address] T PROT Normal 5.9-8.4 [facility] Comment on above: Order Comment: 310.2 Result Comment: KELLY JAIN @610. TRY 09/04/25 Performed By: #### L 500.4050, L100.0500 #### [facility] [address] [place], [address] Comprehensive Metabolic Profil Normal 133-145 [facility] Comment on above: Order Comment: 310.2 Result Comment: KELLY JAIN @610. TRY 09/04/25 Performed By: #### L 500.4050, L100.0500 #### [facility] [address] [place], [address] CBC panel Auto (Bld)on 10-31 Erythrocyte distribution width (RBC) [Ratio] 14.4 % Normal 11.5-14.5 [facility] Comment on above: Performed By: #### 1 9123-9 #### BEVERLEY Poe ([id number]) [facility] ([facility]) [id number] [place] [address] Hematocrit (Bld) [Volume fraction] 33.5 % Low 36.0-46.0 [facility] Comment on above: Performed By: #### 1 9123-9 #### BEVERLEY Poe ([id number]) [facility] ([facility]) [address] [place] [address] Hemoglobin (Bld) [Mass/Vol] 10.0 g/dL Low 12.0-16.0 [facility] Comment on above: Performed By: #### 1 9123-9 #### BEVERLEY Poe ([id number]) [facility] ([facility]) [address] [place] [address] MCH (RBC) [Entitic mass] 31.2 pg Normal 26.0-34.0 [facility] Comment on above: Performed By: #### 1 9123-9 #### BEVERLEY Poe ([id number]) [facility] ([facility]) [address] [place] [address] MCHC (RBC) [Mass/Vol] 29.9 g/dL Low 32.0-36.0 [facility] Comment on above: Performed By: #### 1 9123-9 #### BEVERLEY Poe ([id number]) [facility] ([facility]) [address] [place] [address] MCV (RBC) [Entitic vol] 104 fL High 80-100 [facility] Comment on above: Performed By: #### 1 9123-9 #### BEVERLEY Poe ([id number]) [facility] ([facility]) [address] [place] [address] Nucleated RBC/100 WBC (Bld) [Ratio] 0.0 /100 WBCs Normal 0.0-0.0 [facility] Comment on above: Performed By: #### 1 9123-9 #### BEVERLEY Poe ([id number]) [facility] ([facility]) [address] [place] [address] Platelets (Bld) [#/Vol] 112 x10*3/uL Low 150-450 [facility] Comment on above: Performed By: #### 1 9123-9 #### BEVERLEY Poe ([id number]) [facility] ([facility]) [address] [place] [address] RBC (Bld) [#/Vol] 3.21 x10*6/uL Low 4.00-5.20 [facility] Comment on above: Performed By: #### 1 9123-9 #### BEVERLEY Poe ([id number]) [facility] ([facility]) [address] [place] [address] WBC (Bld) [#/Vol] 4.6 x10*3/uL Normal 4.4-11.3 [facility] Comment on above: Performed By: #### 1 9123-9 #### BEVERLEY Poe ([id number]) [facility] ([facility]) [address] [place] [address] Comprehensive metabolic 2000 panelon 10-31-2023 Albumin BCP dye [Mass/Vol] 3.6 g/dL Normal 3.4-5.0 [facility] Comment on above: Performed By: #### 1 9123-9 #### BEVERLEY Poe ([id number]) [facility] ([facility]) [id number] [place] [address] ALP [Catalytic activity/Vol] 58 U/L Normal 33-136 [facility] Comment on above: Performed By: #### 1 9123-9 #### BEVERLEY Poe ([id number]) [facility] ([facility]) [address] [place] [address] 100[address] ALT With P-5'-P [Catalytic activity/Vol] 16 U/L Normal 7-45 [facility] Comment on above: Result Comment: Ирина ents treated with Sulfasalazine may generate falsely decreased results for ALT. Performed By: #### 1 9123-9 #### BEVRELEY Poe ([id number]) [facility] ([facility]) [address] [place] [address] Anion gap [Moles/Vol] 8 mmol/L Low 10-20 [facility] Comment on above: Performed By: #### 1 9123-9 #### BEVERLEY Poe ([id number]) [facility] ([facility]) [address] [place] [address] AST With P-5'-P [Catalytic activity/Vol] 14 U/L Normal 9-39 [facility] Comment on above: Performed By: #### 1 9123-9 #### BEVERLEY Poe ([id number]) [facility] ([facility]) [address] [place] [address] Bilirubin [Mass/Vol] 0.5 mg/dL Normal 0.0-1.2 [facility] Comment on above: Performed By: #### 1 9123-9 #### BEVERLEY Poe ([id number]) [facility] ([facility]) [address] [place] [address] Calcium [Mass/Vol] 9.3 mg/dL Normal 8.6-10.6 [facility] Comment on above: Performed By: #### 1 9123-9 #### BEVERLEY Poe ([id number]) [facility] ([facility]) [address] [place] [address] Chloride [Moles/Vol] 99 mmol/L Normal 98-107 [facility] Comment on above: Performed By: #### 1 9123-9 #### BEVERLEY Poe ([id number]) [facility] ([facility]) [address] [place] [address] CO2 [Moles/Vol] 42 mmol/L Critically high 21-32 [facility] Comment on above: Performed By: #### 1 9123-9 #### BEVERLEY Poe ([id number]) [facility] ([facility]) [address] [place] [address] Creatinine [Mass/Vol] 0.48 mg/dL Low 0.50-1.05 [facility] Comment on above: Performed By: #### 1 9123-9 #### BEVERLEY Poe ([id number]) [facility] ([facility]) [address] [place] [address] GFR/1.73 sq M.predicted MDRD (S/P/Bld) [Vol rate/Area] mL/min/{1.73_m2} Normal >60 [facility] Comment on above: Result Comment: Calc ulations of estimated GFR are performed using the 2020 CKD-EPI Study Refit equation without the race variable for the IDMS-Traceable creatinine methods. https://jasn.asnjournals.org/content/early//ASN.68444 73998 Performed By: #### 1 9123-9 #### BEVERLEY Poe ([id number]) [facility] ([facility]) [address] [place] [address] Glucose [Mass/Vol] 82 mg/dL Normal 74-99 [facility] Comment on above: Performed By: #### 1 9123-9 #### BEVERLEY Poe ([id number]) [facility] ([facility]) [address] [place] [address] Potassium [Moles/Vol] 4.3 mmol/L Normal 3.5-5.3 [facility] Comment on above: Performed By: #### 1 9123-9 #### BEVERLEY Poe ([id number]) [facility] ([facility]) [address] [place] [address] Protein [Mass/Vol] 6.8 g/dL Normal 6.4-8.2 [facility] Comment on above: Performed By: #### 1 9123-9 #### BEVERLEY Poe ([id number]) [facility] ([facility]) [address] [place] [address] Sodium [Moles/Vol] 145 mmol/L Normal 136-145 [facility] Comment on above: Performed By: #### 1 9123-9 #### BEVERLEY CARSONER L ([id number]) [facility] ([facility]) [address] [place] [address] Urea nitrogen [Mass/Vol] 21 mg/dL Normal 6-23 [facility] Comment on above: Performed By: #### 1 9123-9 #### BEVERLEY DODD L ([id number]) [facility] ([facility]) [address] [place] [address]33[address] Natriuretic peptide B [Mass/ Vol]on 10-31-2023 Interpretation and review of laboratory results Normal [facility] Natriuretic peptide B (Bld) [Mass/Vol] 98 pg/mL 0 - 99 pg/mL [facility] <100 pg/mL - Heart failure [...] contact their local laboratory for further information. [facility] Natriuretic peptide B (Bld) [Mass/Vol] 98 pg/mL Normal 0-99 [facility] Comment on above: Order Comment: <100 pg/mL - Heart failure [id number] pg/mL - Intermediate probability of acute heart [...] #### 1 9123-9 #### BEVERLEY DODD L ([id number]) [facility] ([facility]) [address] [place] [address] Blood type and Indirect anti body screen panel (Bld)on 10-28-2023 ABO group Nom (Bld) O Normal [facility] Comment on above: Performed By: #### 1 9123-9 #### BEVERLEY Poe ([id number]) [facility] ([facility]) [address] [place] [address]278 Blood group antibody screen Ql Negative [facility] Comment on above: Performed By: #### 1 9123-9 #### BEVERLEY Poe ([id number]) [facility] ([facility]) [address] [place] [address] 01470 D Ag Ql (Bld) Positive [facility] Comment on above: Performed By: #### 1 9123-9 #### BEVERLEY oPe ([id number]) [facility] ([facility]) [address] [place] [address] 92610 CBC W Auto Differential pane l (Bld)on 10-28-2023 Basophils (Bld) [#/Vol] 0.01 x10*3/uL Normal 0.00-0.10 [facility] Comment on above: Performed By: #### 1 9123-9 #### BEVERLEY Poe ([id number]) [facility] ([facility]) [address] [place] [address] 92362 Basophils/100 WBC (Bld) 0.3 % Normal 0.0-2.0 [facility] Comment on above: Performed By: #### 1 9123-9 #### BEVERLEY DODD L ([id number]) [facility] ([facility]) [address] [place] [address] Eosinophils (Bld) [#/Vol] 0.05 x10*3/uL Normal 0.00-0.40 [facility] Comment on above: Performed By: #### 1 9123-9 #### BEVERLEY Poe ([id number]) [facility] ([facility]) [address] [place] [address] 10292 Eosinophils/100 WBC (Bld) 1.3 % Normal 0.0-6.0 [facility] Comment on above: Performed By: #### 1 9123-9 #### BEVERLEY Poe ([id number]) [facility] ([facility]) [address] [place] [address] 18723 Erythrocyte distribution width (RBC) [Ratio] 14.5 % Normal 11.5-14.5 [facility] Comment on above: Performed By: #### 1 9123-9 #### BEVERLEY Poe ([id number]) [facility] ([facility]) [address] [place] [address] 24885 Hematocrit (Bld) [Volume fraction] 32.3 % Low 36.0-46.0 [facility] Comment on above: Performed By: #### 1 9123-9 #### BEVERLEY Poe ([id number]) [facility] ([facility]) [address] [place] [address] 85354 Hemoglobin (Bld) [Mass/Vol] 9.5 g/dL Low 12.0-16.0 [facility] Comment on above: Performed By: #### 1 9123-9 #### BEVERLEY Poe ([id number]) [facility] ([facility]) [address] [place] [address] 89671 Immature granulocytes (Bld) [#/Vol] 0.02 x10*3/uL Normal 0.00-0.50 [facility] Comment on above: Performed By: #### 1 9123-9 #### BEVERLEY Poe ([id number]) [facility] ([facility]) [address] [place] [address] 71531 Immature granulocytes/100 WBC (Bld) 0.5 % Normal 0.0-0.9 [facility] Comment on above: Result Comment: Sharda ture Granulocyte Count (IG) includes promyelocytes, myelocytes and metamyelocytes but does not include bands. Percent differential counts (%) should be interpreted in the context of the absolute cell counts (cells/UL). Performed By: #### 1 9123-9 #### BEVERLEY Poe ([id number]) [facility] ([facility]) [address] [place] [address] 77520 Lymphocytes (Bld) [#/Vol] 0.64 x10*3/uL Low 0.80-3.00 [facility] Comment on above: Performed By: #### 1 9123-9 #### BEVERLEY Poe ([id number]) [facility] ([facility]) [address] [place] [address] 44695 Lymphocytes/100 WBC (Bld) 16.0 % Normal 13.0-44.0 [facility] Comment on above: Performed By: #### 1 9123-9 #### BEVERLEY Poe ([id number]) [facility] ([facility]) [address] [place] [address] 77534 MCH (RBC) [Entitic mass] 30.2 pg Normal 26.0-34.0 [facility] Comment on above: Performed By: #### 1 9123-9 #### BEVERLEY Poe ([id number]) [facility] ([facility]) [address] [place] [address] 98218 MCHC (RBC) [Mass/Vol] 29.4 g/dL Low 32.0-36.0 [facility] Comment on above: Performed By: #### 1 9123-9 #### BEVERLEY Poe ([id number]) [facility] ([facility]) [address] [place] [address] 94735 MCV (RBC) [Entitic vol] 103 fL High 80-100 [facility] Comment on above: Performed By: #### 1 9123-9 #### BEVERLEY Poe ([id number]) [facility] ([facility]) [address] [place] [address] 77910 Monocytes (Bld) [#/Vol] 0.23 x10*3/uL Normal 0.05-0.80 [facility] Comment on above: Performed By: #### 1 9123-9 #### BEVERLEY Poe ([id number]) [facility] ([facility]) [address] [place] [address] [place] [address] Monocytes/100 WBC (Bld) 5.8 % Normal 2.0-10.0 [facility] Comment on above: Performed By: #### 1 9123-9 #### BEVERLEY Poe ([id number]) [facility] ([facility]) [address] [place] [address] Neutrophils (Bld) [#/Vol] 3.04 x10*3/uL Normal 1.60-5.50 [facility] Comment on above: Result Comment: Perc ent differential counts (%) should be interpreted in the context of the absolute cell counts (cells/uL). Performed By: #### 1 9123-9 #### BEVERLEY Poe ([id number]) [facility] ([facility]) [address] [place] [address] 37014 Neutrophils/100 WBC (Bld) 76.1 % Normal 40.0-80.0 [facility] Comment on above: Performed By: #### 1 9123-9 #### BEVERLEY Poe ([id number]) [facility] ([facility]) [id number] [place] [address] 83186 Nucleated RBC/100 WBC (Bld) [Ratio] 0.0 /100 WBCs Normal 0.0-0.0 [facility] Comment on above: Performed By: #### 1 9123-9 #### BEVERLEY Poe ([id number]) [facility] ([facility]) [address] [place] [address] Platelets (Bld) [#/Vol] 107 x10*3/uL Low 150-450 [facility] Comment on above: Performed By: #### 1 9123-9 #### BEVERLEY Poe ([id number]) [facility] ([facility]) [address] [place] [address] 98233 RBC (Bld) [#/Vol] 3.15 x10*6/uL Low 4.00-5.20 [facility] Comment on above: Performed By: #### 1 9123-9 #### BEVERLEY Poe ([id number]) [facility] ([facility]) [address] [place] [address] WBC (Bld) [#/Vol] 4.0 x10*3/uL Low 4.4-11.3 [facility] Comment on above: Performed By: #### 1 9123-9 #### BEVERLEY Poe ([id number]) [facility] ([facility]) [address] [place] [address] Comprehensive metabolic 2000 panelon 10-28-2023 Albumin BCP dye [Mass/Vol] 3.6 g/dL Normal 3.4-5.0 [facility] Comment on above: Performed By: #### 1 9123-9 #### BEVERLEY Poe ([id number]) [facility] ([facility]) [id number] [place] [address] 00354 ALP [Catalytic activity/Vol] 66 U/L Normal 33-136 [facility] Comment on above: Performed By: #### 1 9123-9 #### BEVERLEY Poe ([id number]) [facility] ([facility]) [address] [place] [address] ALT With P-5'-P [Catalytic activity/Vol] 18 U/L Normal 7-45 [facility] Comment on above: Result Comment: Ирина ents treated with Sulfasalazine may generate falsely decreased results for ALT. Performed By: #### 1 9123-9 #### BEVERLEY Poe ([id number]) [facility] ([facility]) [address] [place] [address] Anion gap [Moles/Vol] 9 mmol/L Low 10-20 [facility] Comment on above: Performed By: #### 1 9123-9 #### BEVERLEY Poe ([id number]) [facility] ([facility]) [address] [place] [address] AST With P-5'-P [Catalytic activity/Vol] 16 U/L Normal 9-39 [facility] Comment on above: Performed By: #### 1 9123-9 #### BEVERLEY Poe ([id number]) [facility] ([facility]) [address] [place] [address] Bilirubin [Mass/Vol] 0.6 mg/dL Normal 0.0-1.2 [facility] Comment on above: Performed By: #### 1 9123-9 #### BEVERLEY CARSONER L ([id number]) [facility] ([facility]) [address] [place] [address] Calcium [Mass/Vol] 9.4 mg/dL Normal 8.6-10.6 [facility] Comment on above: Performed By: #### 1 9123-9 #### BEVERLEY CARSONER L ([id number]) [facility] ([facility]) [address] [place] [address] Chloride [Moles/Vol] 100 mmol/L Normal 98-107 [facility] Comment on above: Performed By: #### 1 9123-9 #### BEVERLEY PATELTZER L ([id number]) [facility] ([facility]) [address] [place] [address] CO2 [Moles/Vol] 43 mmol/L Critically high 21-32 [facility] Comment on above: Performed By: #### 1 9123-9 #### BEVERLEY DODD L ([id number]) [facility] ([facility]) [address] [place] [address] Creatinine [Mass/Vol] 0.62 mg/dL Normal 0.50-1.05 [facility] Comment on above: Performed By: #### 1 9123-9 #### BEVERLEY PATELTZER L ([id number]) [facility] ([facility]) [address] [place] [address] GFR/1.73 sq M.predicted MDRD (S/P/Bld) [Vol rate/Area] mL/min/{1.73_m2} Normal >60 [facility] Comment on above: Result Comment: Calc ulations of estimated GFR are performed using the 2020 CKD-EPI Study Refit equation without the race variable for the IDMS-Traceable creatinine methods. https://brunasn.priscillajournals.org/content//ASN.22089 16159 Performed By: #### 1 9123-9 #### BEVERLEY Poe ([id number]) [facility] ([facility]) [address] [place] [address] 34418 Glucose [Mass/Vol] 101 mg/dL High 74-99 [facility] Comment on above: Performed By: #### 1 9123-9 #### BEVERLEY Poe ([id number]) [facility] ([facility]) [address] [place] [address] 80534 Potassium [Moles/Vol] 4.5 mmol/L Normal 3.5-5.3 [facility] Comment on above: Performed By: #### 1 9123-9 #### BEVERLEY Poe ([id number]) [facility] ([facility]) [address] [place] [address] 70966 Protein [Mass/Vol] 7.0 g/dL Normal 6.4-8.2 [facility] Comment on above: Performed By: #### 1 9123-9 #### BEVERLEY Poe ([id number]) [facility] ([facility]) [address] [place] [address] 75335 Sodium [Moles/Vol] 147 mmol/L High 136-145 [facility] Comment on above: Performed By: #### 1 9123-9 #### BEVERLEY Poe ([id number]) [facility] ([facility]) [address] [place] [address] 45009 Urea nitrogen [Mass/Vol] 19 mg/dL Normal 6-23 [facility] Comment on above: Performed By: #### 1 9123-9 #### BEVERLEY Poe ([id number]) [facility] ([facility]) [address] [place] [address] 05346 ECG 12-LEADon 10-28-2023 ECG 12-LEAD Ventricular Rate 76 Atrial Rate 76 P-R Interval 156 QRS Duration 132 Q-T Interval 428 QTC Calculation(Bazett) 481 P [place] 57 R [place] -49 T [place] 51 QRS Count 12 Q Onset 210 [...] [place]iedra ([id number]) on 11/11/2023 6:42:46 PM Normal [facility] Prealbuminon 10-28-2023 Prealbumin [Mass/Vol] 18.4 mg/dL Normal 18.0-40.0 [facility] Comment on above: Performed By: #### 1 9123-9 #### BEVERLEY Poe ([id number]) [facility] ([facility]) [address] [place] [address] Staphylococcus aureus.methic illin resistant isolateon 10-28-2023 MRSA isol Org specific cx Ql (Nose) Test: Staphylococcus aureus/MRSA colonization, Culture Specimen Source: Anterior Nares Specimen Type: Swab Specimen Date: 10/28/2023 9:56 AM Result Date: 10/29/2023 1:28 PM Result Status: Final result Abnormal: No Resulting Lab: [facility] [address] [place] [address] CULTURE No Staphylococcus aureus isolated [facility] Comment on above: Performed By: #### 1 9123-9 #### BEVERLEY Poe ([id number]) [facility] ([facility]) [address] [place] [address] Basophil percentageOrdered B y: Jonathanfausto Dillard on 10-11-2023 Bilirubin [Mass/Vol] 0.30 mg/dL 0.20-1.00 [facility] Comment on above: For patients on eltr ombopag therapy, use of Dimension Simpson TBIL is not recommended. Chloride [Moles/Vol] 101 mmol/L 98-107 [facility] Glucose [Mass/Vol] 102 mg/dL 74-106 [facility] Comment on above: Fasting Glucose resu lt from 100 to 125 mg/dL suggests IMPAIRED HOMEOSTASIS per A.D.A. criteria. Potassium [Moles/Vol] 3.7 mmol/L 3.5-5.1 [facility] Protein [Mass/Vol] 6.4 g/dL 6.4-8.2 [facility] Sodium [Moles/Vol] 144 mmol/L 136-145 [facility] WBC (Bld) [#/Vol] 3.3 10*3/uL 4.4-11.0 [facility] Blood erythrocytes count (nu mber/volume)Ordered By: Jonathan Dillard on 10-11-2023 RBC (Bld) [#/Vol] 2.77 10*6/uL 4.2-5.4 [facility] Blood hemoglobin measurement (mass/volume)Ordered By: Jonathan Dillard on 10-11-2023 Hemoglobin (Bld) [Mass/Vol] 8.2 g/dL 12.0-15.0 [facility] Blood platelet mean volumeOr dered By: Jonathan Dillard on 10-11-2023 Platelet mean volume (Bld) [Entitic vol] 8.8 fL 6.2-12.0 [facility] Determination of erythrocyte mean corpuscular volume (MCV)Ordered By: Jonathan Dillard on 10-11-2023 MCV (RBC) [Entitic vol] 105.8 fL 81-99 [facility] Hematocrit Auto (Bld) [Volum e fraction]Ordered By: Jonathan Dillard on 10-11-2023 Hematocrit (Bld) [Volume fraction] 29.3 % 37-47 [facility] - Chemistry and C hemistry - challengeOrdered By: Jonathan Dillard on 10-11-2023 ALP [Catalytic activity/Vol] 51 U/L 45-117 [facility] ALT [Catalytic activity/Vol] 18 U/L 13-56 [facility] CO2 [Moles/Vol] 41.0 mmol/L 21.0-32.0 [facility] Globulin (S) [Mass/Vol] 4.1 g/dL 2.2-4.2 [facility] Urea nitrogen/Creatinine [Mass ratio] 36.1 mg/mg 10-20 [facility] - Hematology and Cell countsOrdered By: Jonathan Dillard on 10-11-2023 Erythrocyte distribution width (RBC) [Entitic vol] 54.5 fL 35.1-43.9 [facility] Erythrocyte distribution width (RBC) [Ratio] 14.0 % 11.6-14.6 [facility] MCH (RBC) [Entitic mass] 29.6 pg 27.0-32.0 [facility] MCHC Auto (RBC) [Mass/Vol]Or dered By: Jonathan Dillard on 10-11-2023 MCHC (RBC) [Mass/Vol] 28.0 g/dL 32-36 [facility] No Panel InformationOrdered By: Jonathan Dillard on 10-11-2023 Estimated GFR (MDRD) Amer 156 mL/min >60 [facility] Comment on above: GFR Calc Estimated GFR (MDRD) Non-Af Amer 129 mL/min >60 [facility] Comment on above: Non- GFR Calc Platelets bldOrdered By: Mervat Dillard on 10-11-2023 Platelets (Bld) [#/Vol] 116 10*3/uL 150-450 [facility] Serum or plasma albumin celina urement (mass/volume)Ordered By: Jonathan Dillard on 10-11-2023 Albumin [Mass/Vol] 2.3 g/dL 3.2-5.0 [facility] Serum or plasma albumin/glob ulin mass ratioOrdered By: Jonathan Dillard on 10-11-2023 Albumin/Globulin [Mass ratio] 0.6 {ratio} 0.9-2.4 [facility] Serum or plasma calcium celina urement (mass/volume)Ordered By: Jonathan Dillard on 10-11-2023 Calcium [Mass/Vol] 7.8 mg/dL 8.5-10.1 [facility] Serum or plasma creatinine m easurement (mass/volume)Ordered By: Jonathan Dillard on 10-11-2023 Creatinine [Mass/Vol] 0.50 mg/dL 0.55-1.02 [facility] Comment on above: The validity of the calculated GFR & GFRAA in patients over 70 years has not been determined. Clinical correlation is essential. Serum or plasma urea nitroge n measurement (mass/volume)Ordered By: Jonathan Dillard on 10-11-2023 Urea nitrogen [Mass/Vol] 18 mg/dL 7-18 [facility] Thin prep Papanicolaou smear with manual screeningOrdered By: Jonathan Dillard on 10-11-2023 Thin prep Papanicolaou smear with manual screening 14 U/L 15-37 [facility] Thin prep Papanicolaou smear with manual screening 2 5-15 [facility] - Chemistry and C hemistry - challengeOrdered By: Jonathan Dillard on 10-04-2023 Cobalamin (Vitamin B12) [Mass/Vol] 926 pg/mL 211-911 [facility] Basophil percentageOrdered B y: Jonathan Dillard on 10-03-2023 Bilirubin [Mass/Vol] 0.40 mg/dL 0.20-1.00 [facility] Comment on above: For patients on eltr ombopag therapy, use of Dimension Simpson TBIL is not recommended. Chloride [Moles/Vol] 103 mmol/L 98-107 [facility] Cholesterol [Mass/Vol] 112 mg/dL <200 [facility] Comment on above: <200 mg/dL Desirable 200-240 mg/dL Borderline >240 mg/dL High Risk Glucose [Mass/Vol] 133 mg/dL 74-106 [facility] Comment on above: Fasting Glucose resu lt greater than or equal to 126 mg/dL suggests DIABETES MELLITUS per A.D.A. criteria. Potassium [Moles/Vol] 3.8 mmol/L 3.5-5.1 [facility] Protein [Mass/Vol] 6.2 g/dL 6.4-8.2 [facility] Sodium [Moles/Vol] 144 mmol/L 136-145 [facility] Triglyceride [Mass/Vol] 156 mg/dL <199 [facility] Comment on above: The drugs N-Acetylcy steine and Metamizole may falsely depress this assay.Serum Triglycerides Reference Interval Normal <150 mg/dL Borderline high 150 - 199 mg/dL High 200 - 499 mg/dL Very High > or = 500 mg/dL WBC (Bld) [#/Vol] 3.6 10*3/uL 4.4-11.0 [facility] Blood erythrocytes count (nu mber/volume)Ordered By: Jonathan Dillard on 10-03-2023 RBC (Bld) [#/Vol] 2.77 10*6/uL 4.2-5.4 [facility] Blood hemoglobin measurement (mass/volume)Ordered By: Jonathan Dillard on 10-03-2023 Hemoglobin (Bld) [Mass/Vol] 8.2 g/dL 12.0-15.0 [facility] Blood platelet mean volumeOr dered By: Jonathan Dillard on 10-03-2023 Platelet mean volume (Bld) [Entitic vol] 9.3 fL 6.2-12.0 [facility] Determination of erythrocyte mean corpuscular volume (MCV)Ordered By: Jonathan Dillard on 10-03-2023 MCV (RBC) [Entitic vol] 104.0 fL 81-99 [facility] Hematocrit Auto (Bld) [Volum e fraction]Ordered By: Joanthan Dillard on 10-03-2023 Hematocrit (Bld) [Volume fraction] 28.8 % 37-47 [facility] - Chemistry and C hemistry - challengeOrdered By: Jonathan Dillard on 10-03-2023 ALP [Catalytic activity/Vol] 42 U/L 45-117 [facility] ALT [Catalytic activity/Vol] 16 U/L 13-56 [facility] CO2 [Moles/Vol] 40.0 mmol/L 21.0-32.0 [facility] Globulin (S) [Mass/Vol] 3.9 g/dL 2.2-4.2 [facility] Urea nitrogen/Creatinine [Mass ratio] 35.6 mg/mg 10-20 [facility] - Hematology and Cell countsOrdered By: Jonathan Dillard on 10-03-2023 Erythrocyte distribution width (RBC) [Entitic vol] 54.0 fL 35.1-43.9 [facility] Erythrocyte distribution width (RBC) [Ratio] 14.2 % 11.6-14.6 [facility] MCH (RBC) [Entitic mass] 29.6 pg 27.0-32.0 [facility] MCHC Auto (RBC) [Mass/Vol]Or dered By: Jonathan Dillard on 10-03-2023 MCHC (RBC) [Mass/Vol] 28.5 g/dL 32-36 [facility] No Panel InformationOrdered By: Jonathan Dillard on 10-03-2023 Estimated GFR (MDRD) Amer 153 mL/min >60 [facility] Comment on above: GFR Calc Estimated GFR (MDRD) Non-Af Amer 127 mL/min >60 [facility] Comment on above: Non- GFR Calc Platelets bldOrdered By: Mervat Dillard on 10-03-2023 Platelets (Bld) [#/Vol] 104 10*3/uL 150-450 [facility] Serum or plasma albumin celina urement (mass/volume)Ordered By: Jonathan Dillard on 10-03-2023 Albumin [Mass/Vol] 2.3 g/dL 3.2-5.0 [facility] Serum or plasma albumin/glob ulin mass ratioOrdered By: Jonathan Dillard on 10-03-2023 Albumin/Globulin [Mass ratio] 0.6 {ratio} 0.9-2.4 [facility] Serum or plasma calcium celina urement (mass/volume)Ordered By: Jonathan Dillard on 10-03-2023 Calcium [Mass/Vol] 8.4 mg/dL 8.5-10.1 [facility] Serum or plasma cholesterol in HDL measurement (mass/volume)Ordered By: Jonathan Dillard on 10-03-2023 Cholesterol in HDL [Mass/Vol] 41 mg/dL >40 [facility] Comment on above: The drugs N-Acetylcy steine and Metamizole may falsely depress this assay. Reference Range HDL <40 mg/dL Low HDL Cholesterol HDL >or= 60 mg/dL High HDL Cholesterol Serum or plasma cholesterol in VLDL measurement (mass/volume)Ordered By: Jonathan Dillard on 10-03-2023 Cholesterol in VLDL [Mass/Vol] 31 mg/dL 5-40 [facility] Serum or plasma creatinine m easurement (mass/volume)Ordered By: Jonathan Dillard on 10-03-2023 Creatinine [Mass/Vol] 0.51 mg/dL 0.55-1.02 [facility] Comment on above: The validity of the calculated GFR & GFRAA in patients over 70 years has not been determined. Clinical correlation is essential. Serum or plasma low density lipoprotein (LDL) cholesterol measurement (mass/volume)Ordered By: Jonathan Dillard on 10-03-2023 Cholesterol in LDL [Mass/Vol] 40 mg/dL 0-130 [facility] Serum or plasma urea nitroge n measurement (mass/volume)Ordered By: Jonathan Dillard on 10-03-2023 Urea nitrogen [Mass/Vol] 18 mg/dL 7-18 [facility] Thin prep Papanicolaou smear with manual screeningOrdered By: Jonathan Dillard on 10-03-2023 Thin prep Papanicolaou smear with manual screening 15 U/L 15-37 [facility] Thin prep Papanicolaou smear with manual screening 1 5-15 [facility] Whole blood hemoglobin A1c/t otal hemoglobin ratio (mass fraction)Ordered By: Jonathan Dillard on 10-03-2023 HbA1c (Bld) [Mass fraction] % 3.8-5.6 [facility] Comment on above: Normal < 5.7 % Predi abetic 5.7 - 6.4 % Diabetic >or= 6.5 % Please note range changes. CBC panel Auto (Bld)on 09-28 Erythrocyte distribution width (RBC) [Ratio] 14.0 % 11.5 - 14.5 % [facility] Hematocrit (Bld) [Volume fraction] 28.8 % Low 36.0 - 46.0 % [facility] Hemoglobin (Bld) [Mass/Vol] 8.4 g/dL Low 12.0 - 16.0 g/dL [facility] Interpretation and review of laboratory results Abnormal [facility] MCH (RBC) [Entitic mass] 30.1 pg 26.0 - 34.0 pg [facility] MCHC (RBC) [Mass/Vol] 29.2 g/dL Low 32.0 - 36.0 g/dL [facility] MCV (RBC) [Entitic vol] 103 fL High 80 - 100 fL [facility] Nucleated RBC/100 WBC (Bld) [Ratio] 0.0 % [facility] Platelets (Bld) [#/Vol] 113 10*3/uL Low [facility] RBC (Bld) [#/Vol] 2.79 10*6/uL [facility] WBC (Bld) [#/Vol] 3.5 10*3/uL [facility] Erythrocyte distribution width (RBC) [Ratio] 14.0 % Normal 11.5-14.5 [facility] Comment on above: Performed By: #### 1 9123-9 #### BEVERLEY Poe ([id number]) [facility] ([facility]) [address] [place] [address] 91349 Hematocrit (Bld) [Volume fraction] 28.8 % Low 36.0-46.0 [facility] Comment on above: Performed By: #### 1 9123-9 #### BEVERLEY Poe ([id number]) [facility] ([facility]) [address] [place] [address] 52257 Hemoglobin (Bld) [Mass/Vol] 8.4 g/dL Low 12.0-16.0 [facility] Comment on above: Performed By: #### 1 9123-9 #### BEVERLEY Poe ([id number]) [facility] ([facility]) [address] [place] [address] 33756 MCH (RBC) [Entitic mass] 30.1 pg Normal 26.0-34.0 [facility] Comment on above: Performed By: #### 1 9123-9 #### BEVERLEY Poe ([id number]) [facility] ([facility]) [address] [place] [address] 49890 MCHC (RBC) [Mass/Vol] 29.2 g/dL Low 32.0-36.0 [facility] Comment on above: Performed By: #### 1 9123-9 #### BEVERLEY Poe ([id number]) [facility] ([facility]) [address] [place] [address] 79474 MCV (RBC) [Entitic vol] 103 fL High 80-100 [facility] Comment on above: Performed By: #### 1 9123-9 #### BEVERLEY Poe ([id number]) [facility] ([facility]) [address] [place] [address] Nucleated RBC/100 WBC (Bld) [Ratio] 0.0 /100 WBCs Normal 0.0-0.0 [facility] Comment on above: Performed By: #### 1 9123-9 #### BEVERLEY Poe ([id number]) [facility] ([facility]) [address] [place] [address] Platelets (Bld) [#/Vol] 113 x10*3/uL Low 150-450 [facility] Comment on above: Performed By: #### 1 9123-9 #### BEVERLEY Poe ([id number]) [facility] ([facility]) [id number] [place] [address] 72674 RBC (Bld) [#/Vol] 2.79 x10*6/uL Low 4.00-5.20 [facility] Comment on above: Performed By: #### 1 9123-9 #### BEVERLEY Poe ([id number]) [facility] ([facility]) [id number] [place] [address] 70080 WBC (Bld) [#/Vol] 3.5 x10*3/uL Low 4.4-11.3 [facility] Comment on above: Performed By: #### 1 9123-9 #### BEVERLEY Poe ([id number]) [facility] ([facility]) [id number] [place] [address] 24386 [facility] Heart and Coronary arter ies WO and W contrast Jack 09-28-2023 [facility] Work Phone: CTA Heart and Coronary arter ies WO and W contrast IVOrdered By: Yair Pham on 09-28-2023 [facility] Work Phone: Magnesiumon 09-28-2023 Magnesium [Mass/Vol] 2.13 mg/dL Normal 1.60-2.40 [facility] Comment on above: Performed By: #### 1 9123-9 #### BEVERLEY Poe ([id number]) [facility] ([facility]) [address] [place] [address] Renal function 2000 panelon 09-28-2023 Albumin BCP dye [Mass/Vol] 2.9 g/dL Low 3.4-5.0 [facility] Comment on above: Performed By: #### 1 9123-9 #### BEVERLEY Poe ([id number]) [facility] ([facility]) [address] [place] [address] Anion gap [Moles/Vol] 11 mmol/L Normal 10-20 [facility] Comment on above: Performed By: #### 1 9123-9 #### BEVERLEY Poe ([id number]) [facility] ([facility]) [id number] [place] [id number] Calcium [Mass/Vol] 8.9 mg/dL Normal 8.6-10.6 [facility] Comment on above: Performed By: #### 1 9123-9 #### BEVERLEY Poe ([id number]) [facility] ([facility]) [id number] [place] [address] 61860 Chloride [Moles/Vol] 100 mmol/L Normal 98-107 [facility] Comment on above: Performed By: #### 1 9123-9 #### BEVERLEY Poe ([id number]) [facility] ([facility]) [id number] [place] [address] 39954 CO2 [Moles/Vol] 40 mmol/L Critically high 21-32 [facility] Comment on above: Performed By: #### 1 9123-9 #### BEVERLEY Poe ([id number]) [facility] ([facility]) [address] [place] [address] Creatinine [Mass/Vol] 0.44 mg/dL Low 0.50-1.05 [facility] Comment on above: Performed By: #### 1 9123-9 #### BEVERLEY Poe ([id number]) [facility] ([facility]) [address] [place] [address] 81248 GFR/1.73 sq M.predicted MDRD (S/P/Bld) [Vol rate/Area] mL/min/{1.73_m2} Normal >60 [facility] Comment on above: Result Comment: Calc ulations of estimated GFR are performed using the 2020 CKD-EPI Study Refit equation without the race variable for the IDMS-Traceable creatinine methods. https://jasn.asnjournals.org/content//ASN.67039 47695 Performed By: #### 1 9123-9 #### BEVERLEY Poe ([id number]) [facility] ([facility]) [address] [place] [address] Glucose [Mass/Vol] 143 mg/dL High 74-99 [facility] Comment on above: Performed By: #### 1 9123-9 #### BEVERLEY Poe ([id number]) [facility] ([facility]) [address] [place] [address] Phosphate [Mass/Vol] 2.8 mg/dL Normal 2.5-4.9 [facility] Comment on above: Result Comment: The performance characteristics of phosphorus testing in heparinized plasma have been validated by the individual laboratory site where testing is performed. Testing on heparinized plasma is not approved by the FDA; however, such approval is not necessary. Performed By: #### 1 9123-9 #### BEVERLEY Poe ([id number]) [facility] ([facility]) [address] [place] [address] Potassium [Moles/Vol] 3.8 mmol/L Normal 3.5-5.3 [facility] Comment on above: Performed By: #### 1 9123-9 #### BEVERLEY Poe ([id number]) [facility] ([facility]) [address] [place] [address] Sodium [Moles/Vol] 147 mmol/L High 136-145 [facility] Comment on above: Performed By: #### 1 9123-9 #### BEVERLEY Poe ([id number]) [facility] ([facility]) [address] [place] [address] Urea nitrogen [Mass/Vol] 11 mg/dL Normal 6-23 [facility] Comment on above: Performed By: #### 1 9123-9 #### BEVERLEY Poe ([id number]) [facility] ([facility]) [address] [place] [address] 92883 SARS coronavirus 2 RNAon SARS-CoV-2 (COVID-19) RNA ISA+probe Ql (Resp) Not detected Normal Not Detected [facility] Comment on above: Order Comment: This [...] and has been validated for use at [facility]. Negative results do not preclude COVID-19 infections and should not be used as the sole basis for diagnosis, treatment, or other management decisions. Performed By: #### 1 9123-9 #### BEVERLEY Poe ([id number]) [facility] ([facility]) [address] [place] [address] 86843 SARS-CoV-2 (COVID-19) RNA NA A+probe Ql (Resp)on 09-28-2023 Interpretation and review of laboratory results Normal [facility] SARS-CoV-2 RT PCRon 09-28-20 SARS-CoV-2 (COVID-19) RNA ISA+probe Ql (Resp) Not detected Not Detected [facility] CBC panel Auto (Bld)on 09-27 Erythrocyte distribution width (RBC) [Ratio] 14.3 % 11.5 - 14.5 % [facility] Hematocrit (Bld) [Volume fraction] 28.0 % Low 36.0 - 46.0 % [facility] Hemoglobin (Bld) [Mass/Vol] 8.0 g/dL Low 12.0 - 16.0 g/dL [facility] Interpretation and review of laboratory results Abnormal [facility] MCH (RBC) [Entitic mass] 29.7 pg 26.0 - 34.0 pg [facility] MCHC (RBC) [Mass/Vol] 28.6 g/dL Low 32.0 - 36.0 g/dL [facility] MCV (RBC) [Entitic vol] 104 fL High 80 - 100 fL [facility] Nucleated RBC/100 WBC (Bld) [Ratio] 0.0 % [facility] Platelets (Bld) [#/Vol] 115 10*3/uL Low [facility] RBC (Bld) [#/Vol] 2.69 10*6/uL [facility] WBC (Bld) [#/Vol] 3.2 10*3/uL [facility] Erythrocyte distribution width (RBC) [Ratio] 14.3 % Normal 11.5-14.5 [facility] Comment on above: Performed By: #### 2 341-6 #### BEVERLEY Poe ([id number]) [facility] ([facility]) [address] [place] [address] 00161 Hematocrit (Bld) [Volume fraction] 28.0 % Low 36.0-46.0 [facility] Comment on above: Performed By: #### 2 341-6 #### BEVERLEY Poe ([id number]) [facility] ([facility]) [address] [place] [address] 71703 Hemoglobin (Bld) [Mass/Vol] 8.0 g/dL Low 12.0-16.0 [facility] Comment on above: Performed By: #### 2 341-6 #### BEVERLEY Poe ([id number]) [facility] ([facility]) [address] [place] [address] 42259 MCH (RBC) [Entitic mass] 29.7 pg Normal 26.0-34.0 [facility] Comment on above: Performed By: #### 2 341-6 #### BEVERLEY Poe ([id number]) [facility] ([facility]) [address] [place] [address] MCHC (RBC) [Mass/Vol] 28.6 g/dL Low 32.0-36.0 [facility] Comment on above: Performed By: #### 2 341-6 #### BEVERLEY Poe ([id number]) [facility] ([facility]) [address] [place] [address] MCV (RBC) [Entitic vol] 104 fL High 80-100 [facility] Comment on above: Performed By: #### 2 341-6 #### BEVERLEY Poe ([id number]) [facility] ([facility]) [address] [place] [address] 93410 Nucleated RBC/100 WBC (Bld) [Ratio] 0.0 /100 WBCs Normal 0.0-0.0 [facility] Comment on above: Performed By: #### 2 341-6 #### BEVERLEY Poe ([id number]) [facility] ([facility]) [address] [place] [address] Platelets (Bld) [#/Vol] 115 x10*3/uL Low 150-450 [facility] Comment on above: Performed By: #### 2 341-6 #### BEVERLEY Poe ([id number]) [facility] ([facility]) [address] [place] [address] RBC (Bld) [#/Vol] 2.69 x10*6/uL Low 4.00-5.20 [facility] Comment on above: Performed By: #### 2 341-6 #### BEVERLEY Poe ([id number]) [facility] ([facility]) [address] [place] [address] 84449 WBC (Bld) [#/Vol] 3.2 x10*3/uL Low 4.4-11.3 [facility] Comment on above: Performed By: #### 2 341-6 #### BEVERLEY Poe ([id number]) [facility] ([facility]) [address] [place] [address] Cobalaminson 09-27-2023 Cobalamin (Vitamin B12) [Mass/Vol] 411 pg/mL Normal 211-911 [facility] Comment on above: Performed By: #### 1 9123-9 #### BEVERLEY Poe ([id number]) [facility] ([facility]) [address] [place] [address] 74415 Electrocardiogram, 12-lead P RN ACS symptomsOrdered By: Simon Piedra on 09-27-2023 Atrial Rate 104 BPM [facility] Work Phone: [phone] P [place] 67 degrees [facility] Work Phone: [phone] P Offset 193 ms [facility] Work Phone: [phone] P Onset 137 ms [facility] Work Phone: [phone] AL Interval 150 ms [facility] Work Phone: [phone] Q Onset 212 ms [facility] Work Phone: [phone] QRS Count 17 beats [facility] Work Phone: [phone] QRS Duration 136 ms [facility] Work Phone: [phone] QT Interval 352 ms [facility] Work Phone: [phone] QTC Calculation(Bazett) 462 [facility] Work Phone: [phone] QTC Fredericia 422 ms [facility] Work Phone: [phone] R [place] -54 degrees [facility] Work Phone: [phone] T [place] 70 degrees [facility] Work Phone: [phone] T Offset 388 ms [facility] Work Phone: [phone] Ventricular Rate 104 BPM [facility] Work Phone: [phone] [facility] Work Phone: [phone] Electrocardiogram, 12-lead P RN ACS symptomson 09-27-2023 [facility] Work Phone: Folateon 09-27-2023 Folate [Mass/Vol] 16.2 ng/mL Normal >5.0 [facility] Comment on above: Order Comment: Low < 3.4Borderline 3.4-5.0Normal >5.0Patients receiving more than 5 mg/day of biotin may have interference in test results. A sample should be taken no sooner than eight hours after previous dose. Contact the testing laboratory for additional information. Performed By: #### 1 9123-9 #### BEVERLEY Poe ([id number]) [facility] ([facility]) [address] [place] [address] 79386 Magnesiumon 09-27-2023 Magnesium [Mass/Vol] 2.13 mg/dL 1.60 - 2.40 mg/dL [facility] Magnesium [Mass/Vol] 2.13 mg/dL Normal 1.60-2.40 [facility] Comment on above: Performed By: #### 2 341-6 #### BEVERLEY Poe ([id number]) [facility] ([facility]) [address] [place] [address] 49890 Magnesium [Mass/Vol]on 09-27 Interpretation and review of laboratory results Normal [facility] No Panel Informationon 09-27 [facility] Renal function 2000 panelon 09-27-2023 Albumin BCP dye [Mass/Vol] 2.8 g/dL Low 3.4 - 5.0 g/dL [facility] Anion gap [Moles/Vol] 7 mmol/L Low 10 - 2 0 mmol/L [facility] Calcium [Mass/Vol] 8.7 mg/dL 8.6 - 10. 6 mg/dL [facility] Chloride [Moles/Vol] 102 mmol/L 98 - 10 7 mmol/L [facility] CO2 [Moles/Vol] 42 mmol/L Critically high 21 - 32 mmol/L [facility] Creatinine [Mass/Vol] 0.41 mg/dL Low 0.50 - 1.05 mg/dL [facility] GFR/1.73 sq M.predicted MDRD (S/P/Bld) [Vol rate/Area] - PINF [facility] Glucose [Mass/Vol] 142 mg/dL High 74 - 99 mg/dL [facility] Interpretation and review of laboratory results Abnormal [facility] Phosphate [Mass/Vol] 3.2 mg/dL 2.5 - 4 .9 mg/dL [facility] Potassium [Moles/Vol] 3.9 mmol/L 3.5 - 5.3 mmol/L [facility] Sodium [Moles/Vol] 147 mmol/L High 136 - 145 mmol/L [facility] Urea nitrogen [Mass/Vol] 12 mg/dL 6 - 23 mg/dL [facility] Albumin BCP dye [Mass/Vol] 2.8 g/dL Low 3.4-5.0 [facility] Comment on above: Performed By: #### 2 341-6 #### BEVERLEY Poe ([id number]) [facility] ([facility]) [address] [place] [address] 36902 Anion gap [Moles/Vol] 7 mmol/L Low 10-20 [facility] Comment on above: Performed By: #### 2 341-6 #### BEVERLEY Poe ([id number]) [facility] ([facility]) [address] [place] [address] 83009 Calcium [Mass/Vol] 8.7 mg/dL Normal 8.6-10.6 [facility] Comment on above: Performed By: #### 2 341-6 #### BEVERLEY Poe ([id number]) [facility] ([facility]) [address] [place] [address] 30254 Chloride [Moles/Vol] 102 mmol/L Normal 98-107 [facility] Comment on above: Performed By: #### 2 341-6 #### BEVERLEY Poe ([id number]) [facility] ([facility]) [address] [place] [address] 99228 CO2 [Moles/Vol] 42 mmol/L Critically high 21-32 [facility] Comment on above: Performed By: #### 2 341-6 #### BEVERLEY Poe ([id number]) [facility] ([facility]) [address] [place] [address] Creatinine [Mass/Vol] 0.41 mg/dL Low 0.50-1.05 [facility] Comment on above: Performed By: #### 2 341-6 #### BEVERLEY Poe ([id number]) [facility] ([facility]) [address] [place] [address] GFR/1.73 sq M.predicted MDRD (S/P/Bld) [Vol rate/Area] mL/min/{1.73_m2} Normal >60 [facility] Comment on above: Result Comment: Calc ulations of estimated GFR are performed using the 2020 CKD-EPI Study Refit equation without the race variable for the IDMS-Traceable creatinine methods. https://jasn.asnjournals.org/content/early/ASN.27989 48088 Performed By: #### 2 341-6 #### BEVERLEY Poe ([id number]) [facility] ([facility]) [address] [place] [address] Glucose [Mass/Vol] 142 mg/dL High 74-99 [facility] Comment on above: Performed By: #### 2 341-6 #### BEVERLEY Poe ([id number]) [facility] ([facility]) [address] [place] [address] Phosphate [Mass/Vol] 3.2 mg/dL Normal 2.5-4.9 [facility] Comment on above: Result Comment: The performance characteristics of phosphorus testing in heparinized plasma have been validated by the individual laboratory site where testing is performed. Testing on heparinized plasma is not approved by the FDA; however, such approval is not necessary. Performed By: #### 2 341-6 #### BEVERLEY Poe ([id number]) [facility] ([facility]) [address] [place] [address] Potassium [Moles/Vol] 3.9 mmol/L Normal 3.5-5.3 [facility] Comment on above: Performed By: #### 2 341-6 #### BEVERLEY Poe ([id number]) [facility] ([facility]) [address] [place] [address] Sodium [Moles/Vol] 147 mmol/L High 136-145 [facility] Comment on above: Performed By: #### 2 341-6 #### BEVERLEY oPe ([id number]) [facility] ([facility]) [address] [place] [address] Urea nitrogen [Mass/Vol] 12 mg/dL Normal 6- [facility] Comment on above: Performed By: #### 2 341-6 #### BEVERLEY Poe ([id number]) [facility] ([facility]) [address] [place] [address] 07545 SARS coronavirus 2 RNAon SARS-CoV-2 (COVID-19) RNA ISA+probe Ql (Resp) Not detected Normal Not Detected [facility] Comment on above: Order Comment: This [...] and has been validated for use at [facility]. Negative results do not preclude COVID-19 infections and should not be used as the sole basis for diagnosis, treatment, or other management decisions. Performed By: #### 2 341-6 #### BEVERLEY Poe ([id number]) [facility] ([facility]) [address] [place] [address] 14155 SARS-CoV-2 (COVID-19) RNA NA A+probe Ql (Resp)on 09-27-2023 Interpretation and review of laboratory results Normal [facility] SARS-CoV-2 RT PCRon 09-27-20 SARS-CoV-2 (COVID-19) RNA ISA+probe Ql (Resp) Not detected Not Detected [facility] CBC panel Auto (Bld)on 09-26 Erythrocyte distribution width (RBC) [Ratio] 14.3 % 11.5 - 14.5 % [facility] Hematocrit (Bld) [Volume fraction] 26.6 % Low 36.0 - 46.0 % [facility] Hemoglobin (Bld) [Mass/Vol] 7.6 g/dL Low 12.0 - 16.0 g/dL [facility] Interpretation and review of laboratory results Abnormal [facility] MCH (RBC) [Entitic mass] 29.9 pg 26.0 - 34.0 pg [facility] MCHC (RBC) [Mass/Vol] 28.6 g/dL Low 32.0 - 36.0 g/dL [facility] MCV (RBC) [Entitic vol] 105 fL High 80 - 100 fL [facility] Nucleated RBC/100 WBC (Bld) [Ratio] 0.0 % [facility] Platelets (Bld) [#/Vol] 107 10*3/uL [facility] RBC (Bld) [#/Vol] 2.54 10*6/uL [facility] WBC (Bld) [#/Vol] 4.1 10*3/uL [facility] Erythrocyte distribution width (RBC) [Ratio] 14.3 % Normal 11.5-14.5 [facility] Comment on above: Performed By: #### 2 341-6 #### BEVERLEY Poe ([id number]) [facility] ([facility]) [address] [place] [address] 37320 Hematocrit (Bld) [Volume fraction] 26.6 % Low 36.0-46.0 [facility] Comment on above: Performed By: #### 2 341-6 #### BEVERLEY Poe ([id number]) [facility] ([facility]) [address] [place] [address] 50464 Hemoglobin (Bld) [Mass/Vol] 7.6 g/dL Low 12.0-16.0 [facility] Comment on above: Performed By: #### 2 341-6 #### BEVERLEY Poe ([id number]) [facility] ([facility]) [address] [place] [address] 27273 MCH (RBC) [Entitic mass] 29.9 pg Normal 26.0-34.0 [facility] Comment on above: Performed By: #### 2 341-6 #### BEVERLEY Poe ([id number]) [facility] ([facility]) [address] [place] [address] 86038 MCHC (RBC) [Mass/Vol] 28.6 g/dL Low 32.0-36.0 [facility] Comment on above: Performed By: #### 2 341-6 #### BEVERLEY Poe ([id number]) [facility] ([facility]) [address] [place] [address] 54049 MCV (RBC) [Entitic vol] 105 fL High 80-100 [facility] Comment on above: Performed By: #### 2 341-6 #### BEVERLEY Poe ([id number]) [facility] ([facility]) [address] [place] [address] 61998 Nucleated RBC/100 WBC (Bld) [Ratio] 0.0 /100 WBCs Normal 0.0-0.0 [facility] Comment on above: Performed By: #### 2 341-6 #### BEVERLEY Poe ([id number]) [facility] ([facility]) [address] [place] [address] 86188 Platelets (Bld) [#/Vol] 107 x10*3/uL Low 150-450 [facility] Comment on above: Performed By: #### 2 341-6 #### BEVERLEY Poe ([id number]) [facility] ([facility]) [address] [place] [address] 49956 RBC (Bld) [#/Vol] 2.54 x10*6/uL Low 4.00-5.20 [facility] Comment on above: Performed By: #### 2 341-6 #### BEVERLEY Poe ([id number]) [facility] ([facility]) [address] [place] [address] WBC (Bld) [#/Vol] 4.1 x10*3/uL Low 4.4-11.3 [facility] Comment on above: Performed By: #### 2 341-6 #### BEVERLEY Poe ([id number]) [facility] ([facility]) [address] [place], [place] [id number] CTA Heart and Coronary arter ies WO and W contrast Jack 09-26-2023 Radiology Study observation (narrative) [facility] Work Phone: [phone] ECG 12 LeadOrdered By: Monse Piedra on 09-26-2023 Atrial Rate 96 BPM [facility] Work Phone: [phone] P [place] 61 degrees [facility] Work Phone: [phone] P Offset 197 ms [facility] Work Phone: [phone] P Onset 133 ms [facility] Work Phone: [phone] AL Interval 156 ms [facility] Work Phone: [phone] Q Onset 211 ms [facility] Work Phone: [phone] QRS Count 16 beats [facility] Work Phone: [phone] QRS Duration 136 ms [facility] Work Phone: [phone] QT Interval 380 ms [facility] Work Phone: [phone] QTC Calculation(Bazett) 480 [facility] Work Phone: [phone] QTC Fredericia 444 [facility] Work Phone: [phone] R [place] -49 degrees [facility] Work Phone: [phone] T [place] 77 degrees [facility] Work Phone: [phone] T Offset 401 ms [facility] Work Phone: [phone] Ventricular Rate 96 BPM [facility] Work Phone: [facility] Work Phone: ECG 12 Leadon 09-26-2023 MUSE [facility] Work Phone: Magnesiumon 09-26-2023 Magnesium [Mass/Vol] 2.17 mg/dL 1.60 - 2.40 mg/dL [facility] Magnesium [Mass/Vol] 2.17 mg/dL Normal 1.60-2.40 [facility] Comment on above: Performed By: #### 2 341-6 #### BEVERLEY Poe ([id number]) [facility] ([facility]) [address] [place] [address] Magnesium [Mass/Vol]on 09-26 Interpretation and review of laboratory results Normal [facility] No Panel Informationon 09-26 [facility] Renal function 2000 panelon 09-26-2023 Albumin BCP dye [Mass/Vol] 2.8 g/dL Low 3.4 - 5.0 g/dL [facility] Anion gap [Moles/Vol] mmol/L Low 10 - 2 0 mmol/L [facility] Calcium [Mass/Vol] 8.6 mg/dL 8.6 - 10. 6 mg/dL [facility] Chloride [Moles/Vol] 101 mmol/L 98 - 10 7 mmol/L [facility] CO2 [Moles/Vol] 45 mmol/L Critically high 21 - 32 mmol/L [facility] Creatinine [Mass/Vol] 0.45 mg/dL Low 0.50 - 1.05 mg/dL [facility] GFR/1.73 sq M.predicted MDRD (S/P/Bld) [Vol rate/Area] - PINF [facility] Glucose [Mass/Vol] 111 mg/dL High 74 - 99 mg/dL [facility] Interpretation and review of laboratory results Abnormal [facility] Phosphate [Mass/Vol] 3.2 mg/dL 2.5 - 4 .9 mg/dL [facility] Potassium [Moles/Vol] 3.8 mmol/L 3.5 - 5.3 mmol/L [facility] Sodium [Moles/Vol] 147 mmol/L High 136 - 145 mmol/L [facility] Urea nitrogen [Mass/Vol] 16 mg/dL 6 - 23 mg/dL [facility] Albumin BCP dye [Mass/Vol] 2.8 g/dL Low 3.4-5.0 [facility] Comment on above: Performed By: #### 2 341-6 #### BEVERLEY Poe ([id number]) [facility] ([facility]) [address] [place] [address] Anion gap [Moles/Vol] mmol/L Low 10-20 [facility] Comment on above: Performed By: #### 2 341-6 #### BEVERLEY Poe ([id number]) [facility] ([facility]) [address] [place] [address] 59054 Calcium [Mass/Vol] 8.6 mg/dL Normal 8.6-10.6 [facility] Comment on above: Performed By: #### 2 341-6 #### BEVERLEY Poe ([id number]) [facility] ([facility]) [address] [place] [address] 30435 Chloride [Moles/Vol] 101 mmol/L Normal 98-107 [facility] Comment on above: Performed By: #### 2 341-6 #### BEVERLEY DODD L ([id number]) [facility] ([facility]) [address] [place] [address] 07478 CO2 [Moles/Vol] 45 mmol/L Critically high 21-32 [facility] Comment on above: Performed By: #### 2 341-6 #### BEVERLEY DODD L ([id number]) [facility] ([facility]) [address] [place] [address] 41176 Creatinine [Mass/Vol] 0.45 mg/dL Low 0.50-1.05 [facility] Comment on above: Performed By: #### 2 341-6 #### BEVERLEY Poe ([id number]) [facility] ([facility]) [address] [place] [address] GFR/1.73 sq M.predicted MDRD (S/P/Bld) [Vol rate/Area] mL/min/{1.73_m2} Normal >60 [facility] Comment on above: Result Comment: Calc ulations of estimated GFR are performed using the 2020 CKD-EPI Study Refit equation without the race variable for the IDMS-Traceable creatinine methods. https://jasn.asnjournals.org/content//ASN.81462 45736 Performed By: #### 2 341-6 #### BEVERLEY Poe ([id number]) [facility] ([facility]) [address] [place] [address] Glucose [Mass/Vol] 111 mg/dL High 74-99 [facility] Comment on above: Performed By: #### 2 341-6 #### BEVERLEY Poe ([id number]) [facility] ([facility]) [address] [place] [address] Phosphate [Mass/Vol] 3.2 mg/dL Normal 2.5-4.9 [facility] Comment on above: Result Comment: The performance characteristics of phosphorus testing in heparinized plasma have been validated by the individual laboratory site where testing is performed. Testing on heparinized plasma is not approved by the FDA; however, such approval is not necessary. Performed By: #### 2 341-6 #### BEVERLEY Poe ([id number]) [facility] ([facility]) [address] [place] [address] Potassium [Moles/Vol] 3.8 mmol/L Normal 3.5-5.3 [facility] Comment on above: Performed By: #### 2 341-6 #### BEVERLEY Poe ([id number]) [facility] ([facility]) [address] [place] [address] Sodium [Moles/Vol] 147 mmol/L High 136-145 [facility] Comment on above: Performed By: #### 2 341-6 #### BEVERLEY Poe ([id number]) [facility] [facility]) [id number] [place] [address] 48644 Urea nitrogen [Mass/Vol] 16 mg/dL Normal 6-23 [facility] Comment on above: Performed By: #### 2 341-6 #### BEVERLEY Poe ([id number]) [facility] ([facility]) [address] [place] [address] MR Pelvis WO and W contrast Jack 09-25-2023 [facility]AL [facility] Work Phone: MR Pelvis WO and W contrast IVOrdered By: Clint Woods on 09-25-2023 [facility] Work Phone: CBC panel Auto (Bld)on 09-24 Erythrocyte distribution width (RBC) [Ratio] 14.5 % 11.5 - 14.5 % [facility] Hematocrit (Bld) [Volume fraction] 26.5 % Low 36.0 - 46.0 % [facility] Hemoglobin (Bld) [Mass/Vol] 7.8 g/dL Low 12.0 - 16.0 g/dL [facility] Interpretation and review of laboratory results Abnormal [facility] MCH (RBC) [Entitic mass] 29.1 pg 26.0 - 34.0 pg [facility] MCHC (RBC) [Mass/Vol] 29.4 g/dL Low 32.0 - 36.0 g/dL [facility] MCV (RBC) [Entitic vol] 99 fL 80 - 100 fL [facility] Nucleated RBC/100 WBC (Bld) [Ratio] 0.0 % [facility] Platelets (Bld) [#/Vol] 96 10*3/uL Low [facility] RBC (Bld) [#/Vol] 2.68 10*6/uL [facility] WBC (Bld) [#/Vol] 4.7 10*3/uL [facility] Erythrocyte distribution width (RBC) [Ratio] 14.5 % Normal 11.5-14.5 [facility] Comment on above: Performed By: #### 2 341-6 #### BEVERLEY Poe ([id number]) [facility] ([facility]) [id number] [place] [address] 45856 Hematocrit (Bld) [Volume fraction] 26.5 % Low 36.0-46.0 [facility] Comment on above: Performed By: #### 2 341-6 #### BEVERLEY Poe ([id number]) [facility] ([facility]) [address] [place] [address] 21022 Hemoglobin (Bld) [Mass/Vol] 7.8 g/dL Low 12.0-16.0 [facility] Comment on above: Performed By: #### 2 341-6 #### BEVERLEY Poe ([id number]) [facility] ([facility]) [address] [place] [address] 97171 MCH (RBC) [Entitic mass] 29.1 pg Normal 26.0-34.0 [facility] Comment on above: Performed By: #### 2 341-6 #### BEVERLEY Poe ([id number]) [facility] ([facility]) [address] [place] [address] 57490 MCHC (RBC) [Mass/Vol] 29.4 g/dL Low 32.0-36.0 [facility] Comment on above: Performed By: #### 2 341-6 #### BEVERLEY Poe ([id number]) [facility] ([facility]) [address] [place] [address] 91456 MCV (RBC) [Entitic vol] 99 fL Normal 80-100 [facility] Comment on above: Performed By: #### 2 341-6 #### BEVERLEY Poe ([id number]) [facility] ([facility]) [address] [place] [address] 48608 Nucleated RBC/100 WBC (Bld) [Ratio] 0.0 /100 WBCs Normal 0.0-0.0 [facility] Comment on above: Performed By: #### 2 341-6 #### BEVERLEY Poe ([id number]) [facility] ([facility]) [address] [place] [address] 36858 Platelets (Bld) [#/Vol] 96 x10*3/uL Low 150-450 [facility] Comment on above: Performed By: #### 2 341-6 #### BEVERLEY Poe ([id number]) [facility] ([facility]) [address] [place] [address] 53732 RBC (Bld) [#/Vol] 2.68 x10*6/uL Low 4.00-5.20 [facility] Comment on above: Performed By: #### 2 341-6 #### BEVERLEY Poe ([id number]) [facility] ([facility]) [address] [place] [address] 23418 WBC (Bld) [#/Vol] 4.7 x10*3/uL Normal 4.4-11.3 [facility] Comment on above: Performed By: #### 2 341-6 #### BEVERLEY Poe ([id number]) [facility] ([facility]) [address] [place] [address] 17835 Glucose Test strip manual (B ld) [Mass/Vol]on 09-24-2023 Glucose [Mass/Vol] 135 mg/dL High 74 - 99 mg/dL [facility] Interpretation and review of laboratory results Abnormal [facility] Magnesiumon 09-24-2023 Magnesium [Mass/Vol] 2.01 mg/dL 1.60 - 2.40 mg/dL [facility] Magnesium [Mass/Vol] 2.01 mg/dL Normal 1.60-2.40 [facility] Comment on above: Performed By: #### 2 341-6 #### BEVERLEY Poe ([id number]) [facility] ([facility]) [address] [place] [address] 11575 Magnesium [Mass/Vol]on 09-24 Interpretation and review of laboratory results Normal [facility] No Panel Informationon 09-24 [facility] Renal function 2000 panelon 09-24-2023 Albumin BCP dye [Mass/Vol] 2.8 g/dL Low 3.4 - 5.0 g/dL [facility] Anion gap [Moles/Vol] 10 mmol/L 10 - 2 0 mmol/L [facility] Calcium [Mass/Vol] 8.4 mg/dL Low 8.6 - 10. 6 mg/dL [facility] Chloride [Moles/Vol] 98 mmol/L 98 - 10 7 mmol/L [facility] CO2 [Moles/Vol] 42 mmol/L Critically high 21 - 32 mmol/L [facility] Creatinine [Mass/Vol] 0.42 mg/dL Low 0.50 - 1.05 mg/dL [facility] GFR/1.73 sq M.predicted MDRD (S/P/Bld) [Vol rate/Area] - PINF [facility] Glucose [Mass/Vol] 140 mg/dL High 74 - 99 mg/dL [facility] Interpretation and review of laboratory results Abnormal [facility] Phosphate [Mass/Vol] 3.3 mg/dL 2.5 - 4 .9 mg/dL [facility] Potassium [Moles/Vol] 4.0 mmol/L 3.5 - 5.3 mmol/L [facility] Sodium [Moles/Vol] 146 mmol/L High 136 - 145 mmol/L [facility] Urea nitrogen [Mass/Vol] 10 mg/dL 6 - 23 mg/dL [facility] Albumin BCP dye [Mass/Vol] 2.8 g/dL Low 3.4-5.0 [facility] Comment on above: Performed By: #### 2 341-6 #### BEVERLEY Poe ([id number]) [facility] ([facility]) [address] [place] [address] 88887 Anion gap [Moles/Vol] 10 mmol/L Normal 10-20 [facility] Comment on above: Performed By: #### 2 341-6 #### BEVERLEY Poe ([id number]) [facility] ([facility]) [address] [place] [address] 90199 Calcium [Mass/Vol] 8.4 mg/dL Low 8.6-10.6 [facility] Comment on above: Performed By: #### 2 341-6 #### BEVERLEY Poe ([id number]) [facility] ([facility]) [address] [place] [address] Chloride [Moles/Vol] 98 mmol/L Normal 98-107 [facility] Comment on above: Performed By: #### 2 341-6 #### BEVERLEY CARSONER L ([id number]) [facility] ([facility]) [address] [place] [address] CO2 [Moles/Vol] 42 mmol/L Critically high 21-32 [facility] Comment on above: Performed By: #### 2 341-6 #### BEVERLEY DODD L ([id number]) [facility] ([facility]) [address] [place] [address] Creatinine [Mass/Vol] 0.42 mg/dL Low 0.50-1.05 [facility] Comment on above: Performed By: #### 2 341-6 #### BEVERLEY Poe ([id number]) [facility] ([facility]) [address] [place] [address] GFR/1.73 sq M.predicted MDRD (S/P/Bld) [Vol rate/Area] mL/min/{1.73_m2} Normal >60 [facility] Comment on above: Result Comment: Calc ulations of estimated GFR are performed using the 2020 CKD-EPI Study Refit equation without the race variable for the IDMS-Traceable creatinine methods. https://jasn.asnjournals.org/content//ASN.76110 19832 Performed By: #### 2 341-6 #### BEVERLEY DODD L ([id number]) [facility] ([facility]) [address] [place] [address] Glucose [Mass/Vol] 140 mg/dL High 74-99 [facility] Comment on above: Performed By: #### 2 341-6 #### BEVERLEY DODD L ([id number]) [facility] ([facility]) [address] [place] [address] Phosphate [Mass/Vol] 3.3 mg/dL Normal 2.5-4.9 [facility] Comment on above: Result Comment: The performance characteristics of phosphorus testing in heparinized plasma have been validated by the individual laboratory site where testing is performed. Testing on heparinized plasma is not approved by the FDA; however, such approval is not necessary. Performed By: #### 2 341-6 #### BEVERLEY Poe ([id number]) [facility] ([facility]) [address] [place] [address] Potassium [Moles/Vol] 4.0 mmol/L Normal 3.5-5.3 [facility] Comment on above: Performed By: #### 2 341-6 #### BEVERLEY Poe ([id number]) [facility] ([facility]) [address] [place] [address] 73339 Sodium [Moles/Vol] 146 mmol/L High 136-145 [facility] Comment on above: Performed By: #### 2 341-6 #### BEVERLEY Poe ([id number]) [facility] ([facility]) [address] [place] [address] 07834 Urea nitrogen [Mass/Vol] 10 mg/dL Normal 6-23 [facility] Comment on above: Performed By: #### 2 341-6 #### BEVERLEY Poe ([id number]) [facility] ([facility]) [address] [place] [address] 79171 CBC panel Auto (Bld)on 09-23 Erythrocyte distribution width (RBC) [Ratio] 14.4 % 11.5 - 14.5 % [facility] Hematocrit (Bld) [Volume fraction] 26.9 % Low 36.0 - 46.0 % [facility] Hemoglobin (Bld) [Mass/Vol] 7.7 g/dL Low 12.0 - 16.0 g/dL [facility] Interpretation and review of laboratory results Abnormal [facility] MCH (RBC) [Entitic mass] 29.8 pg 26.0 - 34.0 pg [facility] MCHC (RBC) [Mass/Vol] 28.6 g/dL Low 32.0 - 36.0 g/dL [facility] MCV (RBC) [Entitic vol] 104 fL High 80 - 100 fL [facility] Nucleated RBC/100 WBC (Bld) [Ratio] 0.0 % [facility] Platelets (Bld) [#/Vol] 93 10*3/uL Low [facility] RBC (Bld) [#/Vol] 2.58 10*6/uL [facility] WBC (Bld) [#/Vol] 4.9 10*3/uL [facility] Erythrocyte distribution width (RBC) [Ratio] 14.4 % Normal 11.5-14.5 [facility] Comment on above: Performed By: #### 2 341-6 #### BEVERLEY Poe ([id number]) [facility] ([facility]) [address] [place] [address] 12923 Hematocrit (Bld) [Volume fraction] 26.9 % Low 36.0-46.0 [facility] Comment on above: Performed By: #### 2 341-6 #### BEVERLEY Poe ([id number]) [facility] ([facility]) [address] [place] [address] 14265 Hemoglobin (Bld) [Mass/Vol] 7.7 g/dL Low 12.0-16.0 [facility] Comment on above: Performed By: #### 2 341-6 #### BEVERLEY Poe ([id number]) [facility] ([facility]) [address] [place] [address] 25116 MCH (RBC) [Entitic mass] 29.8 pg Normal 26.0-34.0 [facility] Comment on above: Performed By: #### 2 341-6 #### BEVERLEY Poe ([id number]) [facility] ([facility]) [address] [place] [address] 91530 MCHC (RBC) [Mass/Vol] 28.6 g/dL Low 32.0-36.0 [facility] Comment on above: Performed By: #### 2 341-6 #### BEVERLEY Poe ([id number]) [facility] ([facility]) [address] [place] [address] MCV (RBC) [Entitic vol] 104 fL High 80-100 [facility] Comment on above: Performed By: #### 2 341-6 #### BEVERLEY Poe ([id number]) [facility] ([facility]) [address] [place] [address] 71843 Nucleated RBC/100 WBC (Bld) [Ratio] 0.0 /100 WBCs Normal 0.0-0.0 [facility] Comment on above: Performed By: #### 2 341-6 #### BEVERLEY Poe ([id number]) [facility] ([facility]) [address] [place] [address] 09604 Platelets (Bld) [#/Vol] 93 x10*3/uL Low 150-450 [facility] Comment on above: Performed By: #### 2 341-6 #### BEVERLEY Poe ([id number]) [facility] ([facility]) [address] [place] [address] 70419 RBC (Bld) [#/Vol] 2.58 x10*6/uL Low 4.00-5.20 [facility] Comment on above: Performed By: #### 2 341-6 #### BEVERLEY Poe ([id number]) [facility] ([facility]) [address] [place] [address] 15432 WBC (Bld) [#/Vol] 4.9 x10*3/uL Normal 4.4-11.3 [facility] Comment on above: Performed By: #### 2 341-6 #### BEVERLEY Poe ([id number]) [facility] ([facility]) [address] [place] [address] ANGIO CORONARY ART WITH H EARTFLOW IF SCORE >30%on 09-23-2023 CT ANGIO CORONARY ART WITH HEARTFLOW IF SCORE >30% Interpreted By: Yair Pham and Hima Mccarty STUDY: CT ANGIO CORONARY ART WITH HEARTFLOW IF SCORE >30%; 09/26/2023 1:38 pm INDICATION: Signs/Symptoms:Reduced EF; Pre Op optimization. COMPARISON: None. ACCESSION NUMBER(S): [id number] ORDERING CLINICIAN: KANG JULIAN TECHNIQUE: Using multi-detector [...] Yair Pham 09/28/2023 11:26 AM Dictation workstation: [id number] [facility] Carcinoembryonic Agon 2022 Carcinoembryonic Ag [Mass/Vol] ng/mL [facility] Comment on above: Order Comment: REF V ALUES NONSMOKERS 0-2.5 SMOKERS 0-5.0CEA testing is performed by chemiluminescent immunoassay using the Siemens Postdeck. Values obtained with different analytic methods cannot [...] By: #### 2 341-6 #### BEVERLEY Poe ([id number]) [facility] ([facility]) [address] [place] [address] 38634 Carcinoembryonic Ag [Mass/Vo l]on 09-23-2023 [facility] Carcinoembryonic Antigenon 1 11-23-2022 Carcinoembryonic Ag [Mass/Vol] ug/L ug/L [facility] Glucose Test strip manual (B ld) [Mass/Vol]on 09-23-2023 Glucose [Mass/Vol] 146 mg/dL High 74 - 99 mg/dL [facility] Interpretation and review of laboratory results Abnormal [facility] Glucose [Mass/Vol] 146 mg/dL High 74-99 [facility] Comment on above: Performed By: #### 2 341-6 #### BEVERLEY Poe ([id number]) [facility] ([facility]) [address] [place] [address] 95934 Glucose [Mass/Vol] 161 mg/dL High 74 - 99 mg/dL [facility] Interpretation and review of laboratory results Abnormal [facility] Glucose [Mass/Vol] 161 mg/dL High 74-99 [facility] Comment on above: Performed By: #### 2 341-6 #### BEVERLEY Poe ([id number]) [facility] ([facility]) [address] [place] [address] 39495 Magnesiumon 09-23-2023 Magnesium [Mass/Vol] 2.04 mg/dL 1.60 - 2.40 mg/dL [facility] Magnesium [Mass/Vol] 2.04 mg/dL Normal 1.60-2.40 [facility] Comment on above: Performed By: #### 2 341-6 #### BEVERLEY Poe ([id number]) [facility] ([facility]) [address] [place], [place] [id number] Magnesium [Mass/Vol]on 09-23 Interpretation and review of laboratory results Normal [facility] No Panel Informationon 09-23 [facility] Renal function 2000 panelon 09-23-2023 Albumin BCP dye [Mass/Vol] 2.9 g/dL Low 3.4 - 5.0 g/dL [facility] Anion gap [Moles/Vol] 8 mmol/L Low 10 - 2 0 mmol/L [facility] Calcium [Mass/Vol] 8.7 mg/dL 8.6 - 10. 6 mg/dL [facility] Chloride [Moles/Vol] 100 mmol/L 98 - 10 7 mmol/L [facility] CO2 [Moles/Vol] 40 mmol/L Critically high 21 - 32 mmol/L [facility] Creatinine [Mass/Vol] 0.42 mg/dL Low 0.50 - 1.05 mg/dL [facility] GFR/1.73 sq M.predicted MDRD (S/P/Bld) [Vol rate/Area] - PINF [facility] Glucose [Mass/Vol] 123 mg/dL High 74 - 99 mg/dL [facility] Interpretation and review of laboratory results Abnormal [facility] Phosphate [Mass/Vol] 3.0 mg/dL 2.5 - 4 .9 mg/dL [facility] Potassium [Moles/Vol] 4.0 mmol/L 3.5 - 5.3 mmol/L [facility] Sodium [Moles/Vol] 144 mmol/L 136 - 145 mmol/L [facility] Urea nitrogen [Mass/Vol] 13 mg/dL 6 - 23 mg/dL [facility] Albumin BCP dye [Mass/Vol] 2.9 g/dL Low 3.4-5.0 [facility] Comment on above: Performed By: #### 2 341-6 #### BEVERLEY Poe ([id number]) [facility] ([facility]) [address] [place] [address] Anion gap [Moles/Vol] 8 mmol/L Low 10-20 [facility] Comment on above: Performed By: #### 2 341-6 #### BEVERLEY DODD L ([id number]) [facility] ([facility]) [address] [place] [address] Calcium [Mass/Vol] 8.7 mg/dL Normal 8.6-10.6 [facility] Comment on above: Performed By: #### 2 341-6 #### BEVERLEY DODD L ([id number]) [facility] ([facility]) [address] [place] [address] 18616 Chloride [Moles/Vol] 100 mmol/L Normal 98-107 [facility] Comment on above: Performed By: #### 2 341-6 #### BEVERLEY DODD L ([id number]) [facility] ([facility]) [address] [place] [address] 11888 CO2 [Moles/Vol] 40 mmol/L Critically high 21-32 [facility] Comment on above: Performed By: #### 2 341-6 #### BEVERLEY DODD L ([id number]) [facility] ([facility]) [address] [place] [address] Creatinine [Mass/Vol] 0.42 mg/dL Low 0.50-1.05 [facility] Comment on above: Performed By: #### 2 341-6 #### BEVERLEY DODD L ([id number]) [facility] ([facility]) [address] [place] [address] GFR/1.73 sq M.predicted MDRD (S/P/Bld) [Vol rate/Area] mL/min/{1.73_m2} Normal >60 [facility] Comment on above: Result Comment: Calc ulations of estimated GFR are performed using the 2020 CKD-EPI Study Refit equation without the race variable for the IDMS-Traceable creatinine methods. https://jasn.asnjournals.org/content//ASN.62910 83843 Performed By: #### 2 341-6 #### BEVERLEY Poe ([id number]) [facility] ([facility]) [address] [place] [address] Glucose [Mass/Vol] 123 mg/dL High 74-99 [facility] Comment on above: Performed By: #### 2 341-6 #### BEVERLEY Poe ([id number]) [facility] ([facility]) [address] [place] [address] Phosphate [Mass/Vol] 3.0 mg/dL Normal 2.5-4.9 [facility] Comment on above: Result Comment: The performance characteristics of phosphorus testing in heparinized plasma have been validated by the individual laboratory site where testing is performed. Testing on heparinized plasma is not approved by the FDA; however, such approval is not necessary. Performed By: #### 2 341-6 #### BEVERLEY Poe ([id number]) [facility] ([facility]) [address] [place] [address] Potassium [Moles/Vol] 4.0 mmol/L Normal 3.5-5.3 [facility] Comment on above: Performed By: #### 2 341-6 #### BEVERLEY Poe ([id number]) [facility] ([facility]) [address] [place] [address] 70918 Sodium [Moles/Vol] 144 mmol/L Normal 136-145 [facility] Comment on above: Performed By: #### 2 341-6 #### BEVERLEY Poe ([id number]) [facility] ([facility]) [address] [place] [address] Urea nitrogen [Mass/Vol] 13 mg/dL Normal 6-23 [facility] Comment on above: Performed By: #### 2 341-6 #### BEVERLEY Poe ([id number]) [facility] ([facility]) [address] [place] [address] Bacteria identified Cx Nom ( U)Ordered By: Rakesh Srivastava on 09-22-2023 Interpretation and review of laboratory results Abnormal [facility] CBC panel Auto (Bld)on 09-22 Erythrocyte distribution width (RBC) [Ratio] 14.6 % High 11.5 - 14.5 % [facility] Hematocrit (Bld) [Volume fraction] 27.9 % Low 36.0 - 46.0 % [facility] Hemoglobin (Bld) [Mass/Vol] 8.0 g/dL Low 12.0 - 16.0 g/dL [facility] Interpretation and review of laboratory results Abnormal [facility] MCH (RBC) [Entitic mass] 29.9 pg 26.0 - 34.0 pg [facility] MCHC (RBC) [Mass/Vol] 28.7 g/dL Low 32.0 - 36.0 g/dL [facility] MCV (RBC) [Entitic vol] 104 fL High 80 - 100 fL [facility] Nucleated RBC/100 WBC (Bld) [Ratio] 0.0 % [facility] Platelets (Bld) [#/Vol] 99 10*3/uL Low [facility] RBC (Bld) [#/Vol] 2.68 10*6/uL [facility] WBC (Bld) [#/Vol] 4.7 10*3/uL [facility] Erythrocyte distribution width (RBC) [Ratio] 14.6 % High 11.5-14.5 [facility] Comment on above: Performed By: #### 3 4532-2 #### BEVERLEY Poe ([id number]) [facility] ([facility]) [address] [place] [address] Hematocrit (Bld) [Volume fraction] 27.9 % Low 36.0-46.0 [facility] Comment on above: Performed By: #### 3 4532-2 #### BEVERLEY Poe ([id number]) [facility] ([facility]) [address] [place] [address] Hemoglobin (Bld) [Mass/Vol] 8.0 g/dL Low 12.0-16.0 [facility] Comment on above: Performed By: #### 3 4531-2 #### BEVERLEY Poe (55759) [facility] ([facility]) [address] [place] [address] MCH (RBC) [Entitic mass] 29.9 pg Normal 26.0-34.0 [facility] Comment on above: Performed By: #### 3 4531-2 #### BEVERLEY Poe ([id number]) [facility] ([facility]) [address] [place] [address] MCHC (RBC) [Mass/Vol] 28.7 g/dL Low 32.0-36.0 [facility] Comment on above: Performed By: #### 3 4531-2 #### BEVERLEY Poe ([id number]) [facility] ([facility]) [address] [place] [address] MCV (RBC) [Entitic vol] 104 fL High 80-100 [facility] Comment on above: Performed By: #### 3 4531-2 #### BEVERLEY Poe ([id number]) [facility] ([facility]) [address] [place] [address] Nucleated RBC/100 WBC (Bld) [Ratio] 0.0 /100 WBCs Normal 0.0-0.0 [facility] Comment on above: Performed By: #### 3 4531-2 #### BEVERLEY Poe ([id number]) [facility] ([facility]) [address] [place] [address] Platelets (Bld) [#/Vol] 99 x10*3/uL Low 150-450 [facility] Comment on above: Performed By: #### 3 4531-2 #### BEVERLEY Poe ([id number]) [facility] ([facility]) [address] [place] [address] RBC (Bld) [#/Vol] 2.68 x10*6/uL Low 4.00-5.20 [facility] Comment on above: Performed By: #### 3 4532-2 #### BEVERLEY Poe ([id number]) [facility] ([facility]) [address] [place] [address] WBC (Bld) [#/Vol] 4.7 x10*3/uL Normal 4.4-11.3 [facility] Comment on above: Performed By: #### 3 4532-2 #### BEVERLEY Poe ([id number]) [facility] ([facility]) [id number] [place] [address] Glucose Test strip manual (B ld) [Mass/Vol]on 09-22-2023 Glucose [Mass/Vol] 160 mg/dL High 74 - 99 mg/dL [facility] Interpretation and review of laboratory results Abnormal [facility] Glucose [Mass/Vol] 160 mg/dL High 74-99 [facility] Comment on above: Performed By: #### 2 341-6 #### BEVERLEY Poe ([id number]) [facility] ([facility]) [address] [place] [id number] Glucose [Mass/Vol] 174 mg/dL High 74 - 99 mg/dL [facility] Interpretation and review of laboratory results Abnormal [facility] Glucose [Mass/Vol] 174 mg/dL High 74-99 [facility] Comment on above: Performed By: #### 2 341-6 #### BEVERLEY Poe ([id number]) [facility] ([facility]) [address] [place] [address] 12577 Glucose [Mass/Vol] 135 mg/dL High 74-99 [facility] Comment on above: Performed By: #### 2 341-6 #### BEVERLEY Poe ([id number]) [facility] ([facility]) [address] [place] [address] [id number] Glucose [Mass/Vol] 148 mg/dL High 74 - 99 mg/dL [facility] Interpretation and review of laboratory results Abnormal [facility] Glucose [Mass/Vol] 148 mg/dL High 74-99 [facility] Comment on above: Performed By: #### 3 4532-2 #### BEVERLEY Poe ([id number]) [facility] ([facility]) [address] [place] [address] Magnesiumon 09-22-2023 Magnesium [Mass/Vol] 2.07 mg/dL 1.60 - 2.40 mg/dL [facility] Magnesium [Mass/Vol] 2.07 mg/dL Normal 1.60-2.40 [facility] Comment on above: Performed By: #### 3 4532-2 #### BEVERLEY Poe ([id number]) [facility] ([facility]) [address] [place] [address] Magnesium [Mass/Vol]on 09-22 Interpretation and review of laboratory results Normal [facility] No Panel Informationon 09-22 [facility] Renal function 2000 panelon 09-22-2023 Albumin BCP dye [Mass/Vol] 2.7 g/dL Low 3.4 - 5.0 g/dL [facility] Anion gap [Moles/Vol] 11 mmol/L 10 - 2 0 mmol/L [facility] Calcium [Mass/Vol] 8.3 mg/dL Low 8.6 - 10. 6 mg/dL [facility] Chloride [Moles/Vol] 101 mmol/L 98 - 10 7 mmol/L [facility] CO2 [Moles/Vol] 38 mmol/L High 21 - 32 mmol/L [facility] Creatinine [Mass/Vol] 0.42 mg/dL Low 0.50 - 1.05 mg/dL [facility] GFR/1.73 sq M.predicted MDRD (S/P/Bld) [Vol rate/Area] - PINF [facility] Glucose [Mass/Vol] 134 mg/dL High 74 - 99 mg/dL [facility] Interpretation and review of laboratory results Abnormal [facility] Phosphate [Mass/Vol] 3.4 mg/dL 2.5 - 4 .9 mg/dL [facility] Potassium [Moles/Vol] 4.0 mmol/L 3.5 - 5.3 mmol/L [facility] Sodium [Moles/Vol] 146 mmol/L High 136 - 145 mmol/L [facility] Urea nitrogen [Mass/Vol] 15 mg/dL 6 - 23 mg/dL [facility] Albumin BCP dye [Mass/Vol] 2.7 g/dL Low 3.4-5.0 [facility] Comment on above: Performed By: #### 3 4531-2 #### BEVERLEY Poe ([id number]) [facility] ([facility]) [address] [place] [address] Anion gap [Moles/Vol] 11 mmol/L Normal 10-20 [facility] Comment on above: Performed By: #### 3 4531-2 #### BEVERLEY Poe ([id number]) [facility] ([facility]) [address] [place] [address] Calcium [Mass/Vol] 8.3 mg/dL Low 8.6-10.6 [facility] Comment on above: Performed By: #### 3 4531-2 #### BEVERLEY Poe ([id number]) [facility] ([facility]) [address] [place] [address] Chloride [Moles/Vol] 101 mmol/L Normal 98-107 [facility] Comment on above: Performed By: #### 3 4531-2 #### BEVERLEY Poe ([id number]) [facility] ([facility]) [address] [place] [address] CO2 [Moles/Vol] 38 mmol/L High 21-32 [facility] Comment on above: Performed By: #### 3 4531-2 #### BEVERLEY Poe ([id number]) [facility] ([facility]) [address] [place] [address] Creatinine [Mass/Vol] 0.42 mg/dL Low 0.50-1.05 [facility] Comment on above: Performed By: #### 3 4531-2 #### BEVERLEY Poe ([id number]) [facility] ([facility]) [address] [place] [address] GFR/1.73 sq M.predicted MDRD (S/P/Bld) [Vol rate/Area] mL/min/{1.73_m2} Normal >60 [facility] Comment on above: Result Comment: Calc ulations of estimated GFR are performed using the 2020 CKD-EPI Study Refit equation without the race variable for the IDMS-Traceable creatinine methods. https://jasn.asnjournals.org/content/early//ASN.84376 01476 Performed By: #### 3 4532-2 #### BEVERLEY Poe ([id number]) [facility] ([facility]) [address] [place] [address] Glucose [Mass/Vol] 134 mg/dL High 74-99 [facility] Comment on above: Performed By: #### 3 4532-2 #### BEVERLEY Poe ([id number]) [facility] ([facility]) [address] [place] [address] Phosphate [Mass/Vol] 3.4 mg/dL Normal 2.5-4.9 [facility] Comment on above: Result Comment: The performance characteristics of phosphorus testing in heparinized plasma have been validated by the individual laboratory site where testing is performed. Testing on heparinized plasma is not approved by the FDA; however, such approval is not necessary. Performed By: #### 3 4532-2 #### BEVERLEY Poe ([id number]) [facility] ([facility]) [address] [place] [address] Potassium [Moles/Vol] 4.0 mmol/L Normal 3.5-5.3 [facility] Comment on above: Performed By: #### 3 4532-2 #### BEVERLEY Poe ([id number]) [facility] ([facility]) [address] [place] [address] Sodium [Moles/Vol] 146 mmol/L High 136-145 [facility] Comment on above: Performed By: #### 3 4532-2 #### BEVERLEY Poe ([id number]) [facility] ([facility]) [address] [place] [address] Urea nitrogen [Mass/Vol] 15 mg/dL Normal 6-23 [facility] Comment on above: Performed By: #### 3 4532-2 #### BEVERLEY Poe ([id number]) [facility] ([facility]) [address] [place] [address] Urine cultureOrdered By: Kel Srivastava on 09-22-2023 Bacteria identified Cx Nom (U) >100,000 Enterococcus faecium Abnormal [facility] CBC panel Auto (Bld)on 09-21 Erythrocyte distribution width (RBC) [Ratio] 14.4 % 11.5 - 14.5 % [facility] Hematocrit (Bld) [Volume fraction] 25.6 % Low 36.0 - 46.0 % [facility] Hemoglobin (Bld) [Mass/Vol] 8.0 g/dL Low 12.0 - 16.0 g/dL [facility] Interpretation and review of laboratory results Abnormal [facility] MCH (RBC) [Entitic mass] 30.5 pg 26.0 - 34.0 pg [facility] MCHC (RBC) [Mass/Vol] 31.3 g/dL Low 32.0 - 36.0 g/dL [facility] MCV (RBC) [Entitic vol] 98 fL 80 - 100 fL [facility] Nucleated RBC/100 WBC (Bld) [Ratio] 0.0 % [facility] Platelets (Bld) [#/Vol] 88 10*3/uL Low [facility] RBC (Bld) [#/Vol] 2.62 10*6/uL [facility] WBC (Bld) [#/Vol] 5.0 10*3/uL [facility] Erythrocyte distribution width (RBC) [Ratio] 14.4 % Normal 11.5-14.5 [facility] Comment on above: Performed By: #### 2 341-6 #### BEVERLEY Poe ([id number]) [facility] ([facility]) [address] [place] [address] Hematocrit (Bld) [Volume fraction] 25.6 % Low 36.0-46.0 [facility] Comment on above: Performed By: #### 2 341-6 #### BEVERLEY Poe ([id number]) [facility] ([facility]) [address] [place] [address] Hemoglobin (Bld) [Mass/Vol] 8.0 g/dL Low 12.0-16.0 [facility] Comment on above: Performed By: #### 2 341-6 #### BEVERLEY Poe ([id number]) [facility] ([facility]) [address] [place] [address] MCH (RBC) [Entitic mass] 30.5 pg Normal 26.0-34.0 [facility] Comment on above: Performed By: #### 2 341-6 #### BEVERLEY Poe ([id number]) [facility] ([facility]) [address] [place] [address] MCHC (RBC) [Mass/Vol] 31.3 g/dL Low 32.0-36.0 [facility] Comment on above: Performed By: #### 2 341-6 #### BEVERLEY Poe ([id number]) [facility] ([facility]) [address] [place] [address] MCV (RBC) [Entitic vol] 98 fL Normal 80-100 [facility] Comment on above: Performed By: #### 2 341-6 #### BEVERLEY Poe ([id number]) [facility] ([facility]) [address] [place] [address] Nucleated RBC/100 WBC (Bld) [Ratio] 0.0 /100 WBCs Normal 0.0-0.0 [facility] Comment on above: Performed By: #### 2 341-6 #### BEVERLEY Poe ([id number]) [facility] ([facility]) [address] [place] [address] Platelets (Bld) [#/Vol] 88 x10*3/uL Low 150-450 [facility] Comment on above: Performed By: #### 2 341-6 #### BEVERLEY Poe ([id number]) [facility] ([facility]) [address] [place] [address] RBC (Bld) [#/Vol] 2.62 x10*6/uL Low 4.00-5.20 [facility] Comment on above: Performed By: #### 2 341-6 #### BEVERLEY Poe ([id number]) [facility] ([facility]) [address] [place] [address] WBC (Bld) [#/Vol] 5.0 x10*3/uL Normal 4.4-11.3 [facility] Comment on above: Performed By: #### 2 341-6 #### BEVERLEY Poe ([id number]) [facility] ([facility]) [address] [place] [address] 38124 Cancer Ag 125 Qnon 3 Interpretation and review of laboratory results Normal [facility] Cancer Antigen 125on 023 Cancer Ag 125 Qn 22.0 [arb'U]/mL 0.0 - 30 .2 U/mL [facility] Glucose Test strip manual (B ld) [Mass/Vol]on 09-21-2023 Glucose [Mass/Vol] 189 mg/dL High 74 - 99 mg/dL [facility] Interpretation and review of laboratory results Abnormal [facility] Glucose [Mass/Vol] 189 mg/dL High 74-99 [facility] Comment on above: Performed By: #### 3 4532-2 #### BEVERLEY Poe ([id number]) [facility] ([facility]) [address] [place] [address] Glucose [Mass/Vol] 120 mg/dL High 74 - 99 mg/dL [facility] Interpretation and review of laboratory results Abnormal [facility] Glucose [Mass/Vol] 120 mg/dL High 74-99 [facility] Comment on above: Performed By: #### 3 4532-2 #### BEVERLEY Poe ([id number]) [facility] ([facility]) [address] [place] [address] Glucose [Mass/Vol] 162 mg/dL High 74 - 99 mg/dL [facility] Interpretation and review of laboratory results Abnormal [facility] Glucose [Mass/Vol] 162 mg/dL High 74-99 [facility] Comment on above: Performed By: #### 3 4532-2 #### BEVERLEY Poe ([id number]) [facility] ([facility]) [address] [place] [address] Glucose [Mass/Vol] 134 mg/dL High 74 - 99 mg/dL [facility] Interpretation and review of laboratory results Abnormal [facility] Glucose [Mass/Vol] 134 mg/dL High 74-99 [facility] Comment on above: Performed By: #### 2 341-6 #### BEVERLEY Poe ([id number]) [facility] ([facility]) [address] [place] [address] Glucose [Mass/Vol] 136 mg/dL High 74 - 99 mg/dL [facility] Interpretation and review of laboratory results Abnormal [facility] Glucose [Mass/Vol] 136 mg/dL High 74-99 [facility] Comment on above: Performed By: #### 2 341-6 #### BEVERLEY Poe ([id number]) [facility] ([facility]) [address] [place] [address] Glucose [Mass/Vol] 123 mg/dL High 74 - 99 mg/dL [facility] Interpretation and review of laboratory results Abnormal [facility] Glucose [Mass/Vol] 123 mg/dL High 74-99 [facility] Comment on above: Performed By: #### 2 341-6 #### BEVERLEY Poe ([id number]) [facility] ([facility]) [address] [place] [id number] MR PELVIS W AND WO IV TI Noonan 09-21-2023 MR PELVIS W AND WO IV [...] colovesical colovaginal fistula. COMPARISON: None ACCESSION NUMBER(S): [id number] ORDERING CLINICIAN: KANG JULIAN TECHNIQUE: Multiplanar MRI [...] Cristina MD. This study was interpreted at [place], [place]. MACRO: None Signed by: Clint Woods 09/25/2023 3:47 PM Dictation workstation: [id number] Normal [facility] MR Pelvis WO and W contrast Jack 09-21-2023 Radiology Study observation (narrative) [facility] Work Phone: Magnesiumon 09-21-2023 Magnesium [Mass/Vol] 2.05 mg/dL 1.60 - 2.40 mg/dL [facility] Magnesium [Mass/Vol] 2.05 mg/dL Normal 1.60-2.40 [facility] Comment on above: Performed By: #### 2 341-6 #### BEVERLEY Poe ([id number]) [facility] ([facility]) [address] [place] [address] Magnesium [Mass/Vol]on 09-21 Interpretation and review of laboratory results Normal [facility] No Panel Informationon 09-21 [facility] Renal function 2000 panelon 09-21-2023 Albumin BCP dye [Mass/Vol] 2.7 g/dL Low 3.4 - 5.0 g/dL [facility] Anion gap [Moles/Vol] 8 mmol/L Low 10 - 2 0 mmol/L [facility] Calcium [Mass/Vol] 8.3 mg/dL Low 8.6 - 10. 6 mg/dL [facility] Chloride [Moles/Vol] 101 mmol/L 98 - 10 7 mmol/L [facility] CO2 [Moles/Vol] 41 mmol/L Critically high 21 - 32 mmol/L [facility] Creatinine [Mass/Vol] 0.45 mg/dL Low 0.50 - 1.05 mg/dL [facility] GFR/1.73 sq M.predicted MDRD (S/P/Bld) [Vol rate/Area] - PINF [facility] Glucose [Mass/Vol] 140 mg/dL High 74 - 99 mg/dL [facility] Interpretation and review of laboratory results Abnormal [facility] Phosphate [Mass/Vol] 3.4 mg/dL 2.5 - 4 .9 mg/dL [facility] Potassium [Moles/Vol] 3.8 mmol/L 3.5 - 5.3 mmol/L [facility] Sodium [Moles/Vol] 146 mmol/L High 136 - 145 mmol/L [facility] Urea nitrogen [Mass/Vol] 12 mg/dL 6 - 23 mg/dL [facility] Albumin BCP dye [Mass/Vol] 2.7 g/dL Low 3.4-5.0 [facility] Comment on above: Performed By: #### 3 4532-2 #### BEVERLEY Poe ([id number]) [facility] ([facility]) [address] [place] [address] Anion gap [Moles/Vol] 8 mmol/L Low 10-20 [facility] Comment on above: Performed By: #### 3 4532-2 #### BEVERLEY Poe ([id number]) [facility] ([facility]) [address] [place] [address] Calcium [Mass/Vol] 8.3 mg/dL Low 8.6-10.6 [facility] Comment on above: Performed By: #### 3 4532-2 #### BEVERLEY Poe ([id number]) [facility] ([facility]) [address] [place] [address] Chloride [Moles/Vol] 101 mmol/L Normal 98-107 [facility] Comment on above: Performed By: #### 3 4532-2 #### BEVERLEY Poe ([id number]) [facility] ([facility]) [address] [place] [address] CO2 [Moles/Vol] 41 mmol/L Critically high 21-32 [facility] Comment on above: Performed By: #### 3 4532-2 #### BEVERLEY Poe ([id number]) [facility] ([facility]) [address] [place] [address] Creatinine [Mass/Vol] 0.45 mg/dL Low 0.50-1.05 [facility] Comment on above: Performed By: #### 3 4532-2 #### BEVERLEY Poe ([id number]) [facility] ([facility]) [address] [place] [address] GFR/1.73 sq M.predicted MDRD (S/P/Bld) [Vol rate/Area] mL/min/{1.73_m2} Normal >60 [facility] Comment on above: Result Comment: Calc ulations of estimated GFR are performed using the 2020 CKD-EPI Study Refit equation without the race variable for the IDMS-Traceable creatinine methods. https://jasn.asnjournals.org/content//ASN.77294 84187 Performed By: #### 3 4532-2 #### BEVERLEY Poe ([id number]) [facility] ([facility]) [address] [place] [address] Glucose [Mass/Vol] 140 mg/dL High 74-99 [facility] Comment on above: Performed By: #### 3 4532-2 #### BEVERLEY Poe ([id number]) [facility] ([facility]) [address] [place] [address] Phosphate [Mass/Vol] 3.4 mg/dL Normal 2.5-4.9 [facility] Comment on above: Result Comment: The performance characteristics of phosphorus testing in heparinized plasma have been validated by the individual laboratory site where testing is performed. Testing on heparinized plasma is not approved by the FDA; however, such approval is not necessary. Performed By: #### 3 4532-2 #### BEVERLEY Poe ([id number]) [facility] ([facility]) [address] [place] [address] Potassium [Moles/Vol] 3.8 mmol/L Normal 3.5-5.3 [facility] Comment on above: Performed By: #### 3 4532-2 #### BEVERLEY Poe ([id number]) [facility] ([facility]) [address] [place] [address] Sodium [Moles/Vol] 146 mmol/L High 136-145 [facility] Comment on above: Performed By: #### 3 4532-2 #### BEVERLEY Poe ([id number]) [facility] ([facility]) [address] [place] [address] Urea nitrogen [Mass/Vol] 12 mg/dL Normal 6-23 [facility] Comment on above: Performed By: #### 3 4532-2 #### BEVERLEY Poe ([id number]) [facility] ([facility]) [address] [place] [address] Bacteria identifiedon 2022 Bacteria identified Cx Nom (U) Test: Urine culture Specimen Source: Indwelling (Stephens) Catheter Specimen Type: Urine Specimen Date: 09/20/2023 3:34 PM Result Date: 09/22/2023 11:36 AM Result Status: Final result Abnormal: Yes Resulting Lab: [facility] [id number] [place] [address] CULTURE >100,000 Enterococcus faecium (Abnormal) Vancomycin Resistant Enterococcus (VRE) SUSCEPTIBILITY Enterococcus faecium METHOD MICROSCAN ---- ------- AMPICILLIN -- Resistant CIPROFLOXACIN -- Resistant DAPTOMYCIN -- Susceptible-dose dependent LEVOFLOXACIN -- Resistant LINEZOLID -- Susceptible NITROFURANTOIN -- Susceptible PENICILLIN -- Resistant TRIMETHOPRIM/SULFAMETHOXA ZOLE -- Resistant VANCOMYCIN -- Resistant Abnormal [facility] Comment on above: Performed By: #### 3 4532-2 #### BEVERLEY Poe ([id number]) [facility] ([facility]) [address] [place] [address] CBC panel Auto (Bld)on 09-20 Erythrocyte distribution width (RBC) [Ratio] 14.5 % 11.5 - 14.5 % [facility] Hematocrit (Bld) [Volume fraction] 27.7 % Low 36.0 - 46.0 % [facility] Hemoglobin (Bld) [Mass/Vol] 8.3 g/dL Low 12.0 - 16.0 g/dL [facility] Interpretation and review of laboratory results Abnormal [facility] MCH (RBC) [Entitic mass] 30.6 pg 26.0 - 34.0 pg [facility] MCHC (RBC) [Mass/Vol] 30.0 g/dL Low 32.0 - 36.0 g/dL [facility] MCV (RBC) [Entitic vol] 102 fL High 80 - 100 fL [facility] Nucleated RBC/100 WBC (Bld) [Ratio] 0.0 % [facility] Platelets (Bld) [#/Vol] 92 10*3/uL Low [facility] RBC (Bld) [#/Vol] 2.71 10*6/uL Low [facility] WBC (Bld) [#/Vol] 4.3 10*3/uL [facility] Erythrocyte distribution width (RBC) [Ratio] 14.5 % Normal 11.5-14.5 [facility] Comment on above: Performed By: #### 6 00-7 #### BEVERLEY Poe ([id number]) [facility] ([facility]) [address] [place] [address] Hematocrit (Bld) [Volume fraction] 27.7 % Low 36.0-46.0 [facility] Comment on above: Performed By: #### 6 -7 #### BEVERLEY Poe ([id number]) [facility] ([facility]) [address] [place] [address] 36634 Hemoglobin (Bld) [Mass/Vol] 8.3 g/dL Low 12.0-16.0 [facility] Comment on above: Performed By: #### 6 -7 #### BEVERLEY Poe ([id number]) [facility] ([facility]) [address] [place] [address] 08920 MCH (RBC) [Entitic mass] 30.6 pg Normal 26.0-34.0 [facility] Comment on above: Performed By: #### 6 -7 #### BEVERLEY Poe ([id number]) [facility] ([facility]) [address] [place] [address]74[address] MCHC (RBC) [Mass/Vol] 30.0 g/dL Low 32.0-36.0 [facility] Comment on above: Performed By: #### 6 00-7 #### BEVERLEY Poe ([id number]) [facility] ([facility]) [address] [place] [address]05[address] MCV (RBC) [Entitic vol] 102 fL High 80-100 [facility] Comment on above: Performed By: #### 6 00-7 #### BEVERLEY Poe ([id number]) [facility] ([facility]) [address] [place] [address] 20564 Nucleated RBC/100 WBC (Bld) [Ratio] 0.0 /100 WBCs Normal 0.0-0.0 [facility] Comment on above: Performed By: #### 6 00-7 #### BEVERLEY Poe ([id number]) [facility] ([facility]) [address] [place] [address] Platelets (Bld) [#/Vol] 92 x10*3/uL Low 150-450 [facility] Comment on above: Performed By: #### 6 00-7 #### BEVERLEY Poe ([id number]) [facility] ([facility]) [address] [place] [address] RBC (Bld) [#/Vol] 2.71 x10*6/uL Low 4.00-5.20 [facility] Comment on above: Performed By: #### 6 00-7 #### BEVERLEY Poe ([id number]) [facility] ([facility]) [address] [place] [address] WBC (Bld) [#/Vol] 4.3 x10*3/uL Low 4.4-11.3 [facility] Comment on above: Performed By: #### 6 00-7 #### BEVERLEY Poe ([id number]) [facility] ([facility]) [address] [place] [address] Cancer Ag 19-9on 09-20-2023 Cancer Ag 19-9 Qn 6.88 [arb'U]/mL Normal <35.00 [facility] Comment on above: Order Comment: CA 19 -9 testing is performed by chemiluminescent immunoassay using the Namely. Values obtained with different analytic methods cannot [...] By: #### 2 341-6 #### BEVERLEY Poe ([id number]) [facility] ([facility]) [address] [place] [address] 28[address] Cancer Ag 19-9 Qnon 09-20-20 Interpretation and review of laboratory results Normal [facility] Cancer Antigen 19-9on 2022 Cancer Ag 19-9 Qn 6.88 [arb'U]/mL NINF - 35.00 U/mL [facility] Glucose Test strip manual (B ld) [Mass/Vol]on 09-20-2023 Glucose [Mass/Vol] 210 mg/dL High 74 - 99 mg/dL [facility] Interpretation and review of laboratory results Abnormal [facility] Glucose [Mass/Vol] 210 mg/dL High 74-99 [facility] Comment on above: Performed By: #### 2 341-6 #### BEVERLEY Poe ([id number]) [facility] ([facility]) [address] [place] [address] Glucose [Mass/Vol] 114 mg/dL High 74 - 99 mg/dL [facility] Interpretation and review of laboratory results Abnormal [facility] Glucose [Mass/Vol] 114 mg/dL High 74-99 [facility] Comment on above: Performed By: #### 2 341-6 #### BEVERLEY Poe ([id number]) [facility] ([facility]) [address] [place] [address] Glucose [Mass/Vol] 152 mg/dL High 74 - 99 mg/dL [facility] Interpretation and review of laboratory results Abnormal [facility] Glucose [Mass/Vol] 152 mg/dL High 74-99 [facility] Comment on above: Performed By: #### 2 341-6 #### BEVERLEY Poe ([id number]) [facility] ([facility]) [address] [place] [address] 058[address] Glucose [Mass/Vol] 140 mg/dL High 74 - 99 mg/dL [facility] Interpretation and review of laboratory results Abnormal [facility] Glucose [Mass/Vol] 140 mg/dL High 74-99 [facility] Comment on above: Performed By: #### 6 00-7 #### BEVERLEY Poe ([id number]) [facility] ([facility]) [address] [place] [address] 598[address] Glucose [Mass/Vol] 125 mg/dL High 74 - 99 mg/dL [facility] Interpretation and review of laboratory results Abnormal [facility] Glucose [Mass/Vol] 125 mg/dL High 74-99 [facility] Comment on above: Performed By: #### 6 00-7 #### BEVERLEY Poe ([id number]) [facility] ([facility]) [address] [place] [address] 34934 Glucose [Mass/Vol] 111 mg/dL High 74 - 99 mg/dL [facility] Glucose [Mass/Vol] 213 mg/dL High 74 - 99 mg/dL [facility] Interpretation and review of laboratory results Abnormal [facility] Glucose [Mass/Vol] 109 mg/dL High 74 - 99 mg/dL [facility] Interpretation and review of laboratory results Abnormal [facility] Glucose [Mass/Vol] 109 mg/dL High 74-99 [facility] Comment on above: Performed By: #### 6 00-7 #### BEVERLEY Poe ([id number]) [facility] ([facility]) [address] [place] [address] 88429 HCV Ab Ql (S)on 09-20-2023 Interpretation and review of laboratory results Normal [facility] HIV 1+2 Ab+HIV1 p24 Agon HIV 1+2 Ab+HIV1 p24 Ag IA Ql Non-Reactive Normal Nonreactive [facility] Comment on above: Order Comment: HIV A g/Ab screen is performed using the Siemens Atellica HIV Ag/Ab Combo assay which detects the presence of HIV p24 antigen as well as antibodies to HIV-1 (Group M and O) and HIV-2.No laboratory evidence of HIV infection. If acute HIV infection is suspected, consider testing for HIV RNA by PCR (viral load). Performed By: #### 6 00-7 #### BEVERLEY Poe ([id number]) [facility] ([facility]) [address] [place] [address] 62634 HIV 1+2 Ab+HIV1 p24 Ag IA Ql on 09-20-2023 Interpretation and review of laboratory results Normal [facility] HIV 1/2 Antigen/Antibody Scr een with Reflex to Confirmationon 09-20-2023 HIV 1+2 Ab+HIV1 p24 Ag IA Ql Non-Reactive Nonreactive [facility] Hepatitis C Antibodyon 09-20 HCV Ab Ql (S) Non-Reactive Nonreactive [facility] Hepatitis C virus Abon 09-20 HCV Ab Ql (S) Non-Reactive Normal Nonreactive [facility] Comment on above: Result Comment: Resu lts from patients taking biotin supplements or receiving high-dose biotin therapy should be interpreted with caution due to possible interference with this test. Providers may contact their local laboratory for further information. Performed By: #### 6 00-7 #### BEVERLEY Poe ([id number]) [facility] ([facility]) [address] [place] [address] 26765 Magnesiumon 09-20-2023 Magnesium [Mass/Vol] 2.15 mg/dL 1.60 - 2.40 mg/dL [facility] Magnesium [Mass/Vol] 2.15 mg/dL Normal 1.60-2.40 [facility] Comment on above: Performed By: #### 6 00-7 #### BEVERLEY Poe ([id number]) [facility] ([facility]) [address] [place] [address] 34394 Magnesium [Mass/Vol]on 09-20 Interpretation and review of laboratory results Normal [facility] No Panel Informationon 09-20 [facility] MMODAL MMODAL [facility] Work Phone: No Panel InformationOrdered By: Steven Chacon on 09-20-2023 [facility] Work Phone: Renal function 2000 panelon 09-20-2023 Albumin BCP dye [Mass/Vol] 2.9 g/dL Low 3.4 - 5.0 g/dL [facility] Anion gap [Moles/Vol] 9 mmol/L Low 10 - 2 0 mmol/L [facility] Calcium [Mass/Vol] 8.7 mg/dL 8.6 - 10. 6 mg/dL [facility] Chloride [Moles/Vol] 99 mmol/L 98 - 10 7 mmol/L [facility] CO2 [Moles/Vol] 40 mmol/L Critically high 21 - 32 mmol/L [facility] Creatinine [Mass/Vol] 0.51 mg/dL 0.50 - 1.05 mg/dL [facility] GFR/1.73 sq M.predicted MDRD (S/P/Bld) [Vol rate/Area] - PINF [facility] Glucose [Mass/Vol] 117 mg/dL High 74 - 99 mg/dL [facility] Interpretation and review of laboratory results Abnormal [facility] Phosphate [Mass/Vol] 3.0 mg/dL 2.5 - 4 .9 mg/dL [facility] Potassium [Moles/Vol] 3.9 mmol/L 3.5 - 5.3 mmol/L [facility] Sodium [Moles/Vol] 144 mmol/L 136 - 145 mmol/L [facility] Urea nitrogen [Mass/Vol] 9 mg/dL 6 - 23 mg/dL [facility] Albumin BCP dye [Mass/Vol] 2.9 g/dL Low 3.4-5.0 [facility] Comment on above: Performed By: #### 6 -7 #### BEVERLEY Poe ([id number]) [facility] ([facility]) [address] [place] [address] Anion gap [Moles/Vol] 9 mmol/L Low 10-20 [facility] Comment on above: Performed By: #### 6 -7 #### BEVERLEY CARSONER L ([id number]) [facility] ([facility]) [address] [place] [address] Calcium [Mass/Vol] 8.7 mg/dL Normal 8.6-10.6 [facility] Comment on above: Performed By: #### 6 -7 #### BEVERLEY SCHMOTZER L ([id number]) [facility] ([facility]) [address] [place] [address] Chloride [Moles/Vol] 99 mmol/L Normal 98-107 [facility] Comment on above: Performed By: #### 6 00-7 #### BEVERLEY VORAMOTZER L ([id number]) [facility] ([facility]) [address] [place] [address] 16601 CO2 [Moles/Vol] 40 mmol/L Critically high 21-32 [facility] Comment on above: Performed By: #### 6 -7 #### BEVERLEY VORAMOTZER L ([id number]) [facility] ([facility]) [address] [place] [address] 73532 Creatinine [Mass/Vol] 0.51 mg/dL Normal 0.50-1.05 [facility] Comment on above: Performed By: #### 6 00-7 #### BEVERLEY VORAMOTZER L ([id number]) [facility] ([facility]) [address] [place] [address] 17274 GFR/1.73 sq M.predicted MDRD (S/P/Bld) [Vol rate/Area] mL/min/{1.73_m2} Normal >60 [facility] Comment on above: Result Comment: Calc ulations of estimated GFR are performed using the 2020 CKD-EPI Study Refit equation without the race variable for the IDMS-Traceable creatinine methods. https://jasn.asnjournals.org/content/early//ASN.66344 39688 Performed By: #### 6 00-7 #### BEVERLEY VORAMOTZER L ([id number]) [facility] ([facility]) [id number] [place] [address] 36589 Glucose [Mass/Vol] 117 mg/dL High 74-99 [facility] Comment on above: Performed By: #### 6 -7 #### BEVERLEY DODD L ([id number]) [facility] ([facility]) [address] [place] [address] 79024 Phosphate [Mass/Vol] 3.0 mg/dL Normal 2.5-4.9 [facility] Comment on above: Result Comment: The performance characteristics of phosphorus testing in heparinized plasma have been validated by the individual laboratory site where testing is performed. Testing on heparinized plasma is not approved by the FDA; however, such approval is not necessary. Performed By: #### 6 -7 #### BEVERLEY Poe ([id number]) [facility] ([facility]) [address] [place] [address] 02709 Potassium [Moles/Vol] 3.9 mmol/L Normal 3.5-5.3 [facility] Comment on above: Performed By: #### 6 00-7 #### BEVERLEY DODD L ([id number]) [facility] ([facility]) [address] [place] [address] 13033 Sodium [Moles/Vol] 144 mmol/L Normal 136-145 [facility] Comment on above: Performed By: #### 6 -7 #### BEVERLEY VORAMOTZER L ([id number]) [facility] ([facility]) [address] [place] [address] 00331 Urea nitrogen [Mass/Vol] 9 mg/dL Normal 6-23 [facility] Comment on above: Performed By: #### 6 -7 #### BEVERLEY VORAMOTZER L ([id number]) [facility] ([facility]) [address] [place] [address] 31672 TRANSTHORACIC ECHO (TTE) [facility] 09-20-2023 TRANSTHORACIC ECHO (TTE) [facility], [address] [place] [address] 843[address] and TRANSTHORACIC ECHOCARDIOGRAM REPORT Patient Name: POLI RAMIREZ Reading Physician: [id number] Kandi Roberts MD Study Date: 09/20/2023 Ordering Provider: [id number] VARSHA SOTELO MRN/PID: [id number] Fellow: Nurse: Mare Higgins Date of /Age: 12 1950 [employer] Analytical Lead: Muna Clinton RDCS years Gender: F Additional Staff: Height: 165.10 cm Admit Date: 09/15/2023 Weight: 74.84 kg Admission Status: Inpatient - Routine BSA: 1.82 m2 Department Location: [facility] Non Invasive Blood Pressure: 126 /75 mmHg Study Type: TRANSTHORACIC ECHO (TTE) COMPLETE Diagnosis/ICD: Encounter for preprocedural cardiovascular examination-Z01.810 CPT Code: Echo Complete w Full Doppler-17419 Patient History: Pertinent History: Breast cancer, HTN, [...] LA Area A2C: 21.1 cm2 LA [place] A4C: 5.5 cm LA [place] A2C: 5.6 cm AORTA MEASUREMENTS: Normal Ranges: [...] (2.5-4.5cm2) Ao (more content not included)... Normal [facility] US Heart TransthoracicOrdere d By: Kandi Roberts on 09-20-2023 Aortic Valve Area by Continuity of Peak Velocity 1.81 [facility] Work Phone: [phone] Aortic Valve Area by Continuity of VTI 2.01 [facility] Work Phone: [phone] AV mn grad 9.0 [facility] Work Phone: [phone] AV pk grad 15.7 [facility] Work Phone: [phone] AV pk abiodun 1.98 [facility] Work Phone: [phone] LA vol index A/L 36.9 [facility] Work Phone: [phone] LV A4C EF 19.0 [facility] Work Phone: LVIDd 5.70 [facility] Work Phone: LVOT diam 1.80 [facility] Work Phone: MV avg E/e' ratio 16.03 [facility] Work Phone: MV E/A ratio 0.61 [facility] Work Phone: RV free wall pk S' 14.30 [facility] Work Phone: Tricuspid annular plane systolic excursion 2.0 [facility] Work Phone: [facility] Work Phone: US Heart Transthoracicon SYNGO [facility] Work Phone: Bacteria identified Cx Nom ( Bld)on 09-19-2023 Interpretation and review of laboratory results Normal [facility] CBC panel Auto (Bld)on 09-19 Erythrocyte distribution width (RBC) [Ratio] 14.1 % 11.5 - 14.5 % [facility] Hematocrit (Bld) [Volume fraction] 28.2 % Low 36.0 - 46.0 % [facility] Hemoglobin (Bld) [Mass/Vol] 8.4 g/dL Low 12.0 - 16.0 g/dL [facility] Interpretation and review of laboratory results Abnormal [facility] MCH (RBC) [Entitic mass] 30.9 pg 26.0 - 34.0 pg [facility] MCHC (RBC) [Mass/Vol] 29.8 g/dL Low 32.0 - 36.0 g/dL [facility] MCV (RBC) [Entitic vol] 104 fL High 80 - 100 fL [facility] Nucleated RBC/100 WBC (Bld) [Ratio] 0.0 % [facility] Platelets (Bld) [#/Vol] 90 10*3/uL Low [facility] RBC (Bld) [#/Vol] 2.72 10*6/uL Low [facility] WBC (Bld) [#/Vol] 4.2 10*3/uL [facility] Erythrocyte distribution width (RBC) [Ratio] 14.1 % Normal 11.5-14.5 [facility] Comment on above: Performed By: #### 5 7021-8 #### BEVERLEY Poe ([id number]) [facility] ([facility]) [id number] [place] [address] 58519 Hematocrit (Bld) [Volume fraction] 28.2 % Low 36.0-46.0 [facility] Comment on above: Performed By: #### 5 7021-8 #### BEVERLEY Poe ([id number]) [facility] ([facility]) [address] [place] [address] 07949 Hemoglobin (Bld) [Mass/Vol] 8.4 g/dL Low 12.0-16.0 [facility] Comment on above: Performed By: #### 5 7021-8 #### BEVERLEY Poe ([id number]) [facility] ([facility]) [address] [place] [address] 85822 MCH (RBC) [Entitic mass] 30.9 pg Normal 26.0-34.0 [facility] Comment on above: Performed By: #### 5 7021-8 #### BEVERLEY Poe ([id number]) [facility] ([facility]) [address] [place] [address] 90700 MCHC (RBC) [Mass/Vol] 29.8 g/dL Low 32.0-36.0 [facility] Comment on above: Performed By: #### 5 7021-8 #### BEVERLEY Poe ([id number]) [facility] ([facility]) [address] [place] [address] 41664 MCV (RBC) [Entitic vol] 104 fL High 80-100 [facility] Comment on above: Performed By: #### 5 7021-8 #### BEVERLEY Poe ([id number]) [facility] ([facility]) [address] [place] [address] 24888 Nucleated RBC/100 WBC (Bld) [Ratio] 0.0 /100 WBCs Normal 0.0-0.0 [facility] Comment on above: Performed By: #### 5 7021-8 #### BEVERLEY Poe ([id number]) [facility] ([facility]) [address] [place] [address] Platelets (Bld) [#/Vol] 90 x10*3/uL Low 150-450 [facility] Comment on above: Performed By: #### 5 7021-8 #### BEVERLEY Poe ([id number]) [facility] ([facility]) [address] [place] [address] RBC (Bld) [#/Vol] 2.72 x10*6/uL Low 4.00-5.20 [facility] Comment on above: Performed By: #### 5 7021-8 #### BEVERLEY DODD L ([id number]) [facility] ([facility]) [address] [place] [address] WBC (Bld) [#/Vol] 4.2 x10*3/uL Low 4.4-11.3 [facility] Comment on above: Performed By: #### 5 7021-8 #### BEVERLEY DODD L ([id number]) [facility] ([facility]) [address] [place] [address] CT HEAD WO IV CONTRASTon CT HEAD WO IV CONTRAST Interpreted By: Susy Bright, STUDY: CT HEAD WO IV CONTRAST; 09/19/2023 3:43 pm INDICATION: Signs/Symptoms:R/o subdural hematoma, thrombocytopenia workup (fall several weeks ago). COMPARISON: None. ACCESSION NUMBER(S): [id number] ORDERING CLINICIAN: KANG JULIAN TECHNIQUE: Axial CT [...] Susy Canales 09/19/2023 4:06 PM Dictation workstation: [id number] Normal [facility] CT Head WO contraston 2022 [facility] MM[facility]AL [facility] MM[facility] Work Phone: Radiology Study observation (narrative) [facility] Work Phone: CT Head WO contrastOrdered B y: Susy Canales on 09-19-2023 [facility] Work Phone: ECG 12-LEADon 09-19-2023 ECG 12-LEAD Ventricular Rate 104 Atrial Rate 104 P-R Interval 150 QRS Duration 136 Q-T Interval 352 QTC Calculation(Bazett) 462 [place] 67 [place] -54 [place] 70 QRS Count 17 Q Onset 212 P Onset 137 P Offset 193 T Offset 388 QTC Fredericia 422 Diagnosis Sinus tachycardia with occasional Premature ventricular complexes Left bundle branch block Abnormal ECG When compared with ECG of 19-SEP-2023 12:28, (unconfirmed) Premature ventricular complexes are now Present Confirmed by Simon Piedra ([id number]) on 09/27/2023 12:27:49 PM Normal [facility] ECG 12-LEAD Ventricular Rate 96 Atrial Rate 96 P-R Interval 156 QRS Duration 136 Q-T Interval 380 QTC Calculation(Bazett) 480 P [place] 61 R [place] -49 [place] 77 QRS Count 16 Q Onset 211 P Onset 133 P Offset 197 T Offset 401 QTC Fredericia 444 Diagnosis Sinus rhythm with occasional Premature ventricular complexes Left axis deviation Left bundle branch block Abnormal ECG No previous ECGs available Confirmed by Harrison Piedra ([id number]) on 09/26/2023 9:00:49 AM Normal [facility] Gas panel (BldA)Ordered By: Allyssa Bach on 09-19-2023 Base excess Calc (Bld) [Moles/Vol] 14.9 mmol/L High -2.0 - 3.0 mmol/L [facility] CO2 (Bld) [Partial pressure] 61 mm[Hg] High [facility] HCO3 (Bld) [Moles/Vol] 41.4 mmol/L High 22.0 - 26.0 mmol/L [facility] Inhaled oxygen concentration 28 % [facility] Interpretation and review of laboratory results Abnormal [facility] Oxygen (Bld) [Partial pressure] 121 mm[Hg] High [facility] Oxyhemoglobin (BldA) [Mass fraction] 96.7 % 94.0 - 98.0 % [facility] pH (Bld) 7.44 [pH] High 7.38 - 7.42 pH [facility] Gas panel (BldA)on Base excess Calc (Bld) [Moles/Vol] 14.9 mmol/L High -2.0-3.0 [facility] Comment on above: Order Comment: While on baseline/ home level of oxygen Performed By: #### 6 00-7 #### BEVERLEY Poe ([id number]) [facility] ([facility]) [address] [place] [address] 61006 CO2 (Bld) [Partial pressure] 61 mm Hg High 38-42 [facility] Comment on above: Order Comment: While on baseline/ home level of oxygen Performed By: #### 6 00-7 #### BEVERLEY PATELTZER L ([id number]) [facility] ([facility]) [address] [place] [address] HCO3 (Bld) [Moles/Vol] 41.4 mmol/L High 22.0-26.0 [facility] Comment on above: Order Comment: While on baseline/ home level of oxygen Performed By: #### 6 00-7 #### EBVERLEY VORAMOTZER L ([id number]) [facility] ([facility]) [address] [place] [address] 39711 Inhaled oxygen concentration 28 % Normal [facility] Comment on above: Order Comment: While on baseline/ home level of oxygen Performed By: #### 6 00-7 #### BEVERLEY Poe ([id number]) [facility] ([facility]) [address] [place] [address] 32712 Oxygen (Bld) [Partial pressure] 121 mm Hg High 85-95 [facility] Comment on above: Order Comment: While on baseline/ home level of oxygen Performed By: #### 6 00-7 #### BEVERLEY Poe ([id number]) [facility] ([facility]) [address] [place] [address] 34968 Oxyhemoglobin (BldA) [Mass fraction] 96.7 % Normal 94.0-98.0 [facility] Comment on above: Order Comment: While on baseline/ home level of oxygen Performed By: #### 6 -7 #### BEVERLEY Poe ([id number]) [facility] ([facility]) [address] [place] [address] 05562 pH (Bld) 7.44 [pH] High 7.38-7.42 [facility] Comment on above: Order Comment: While on baseline/ home level of oxygen Performed By: #### 6 -7 #### BEVERLEY Poe ([id number]) [facility] ([facility]) [address] [place] [address] 25486 Glucose Test strip manual (B ld) [Mass/Vol]on 09-19-2023 Glucose [Mass/Vol] 213 mg/dL High 74-99 [facility] Comment on above: Performed By: #### 6 00-7 #### BEVERLEY DODD L ([id number]) [facility] ([facility]) [address] [place] [address] 44907 Glucose [Mass/Vol] 158 mg/dL High 74 - 99 mg/dL [facility] Interpretation and review of laboratory results Abnormal [facility] Glucose [Mass/Vol] 158 mg/dL High 74-99 [facility] Comment on above: Performed By: #### 6 00-7 #### BEVERLEY Poe ([id number]) [facility] ([facility]) [address] [place] [address] 98610 Glucose [Mass/Vol] 98 mg/dL 74 - 99 mg/dL [facility] Interpretation and review of laboratory results Normal [facility] Glucose [Mass/Vol] 98 mg/dL Normal 74-99 [facility] Comment on above: Performed By: #### 6 00-7 #### BEVERLEY Poe ([id number]) [facility] ([facility]) [address] [place] [address] 44510 Glucose [Mass/Vol] 111 mg/dL High 74-99 [facility] Comment on above: Performed By: #### 6 00-7 #### BEVERLEY Poe ([id number]) [facility] ([facility]) [address] [place] [address] 17205 Glucose [Mass/Vol] 164 mg/dL High 74 - 99 mg/dL [facility] Interpretation and review of laboratory results Abnormal [facility] Glucose [Mass/Vol] 164 mg/dL High 74-99 [facility] Comment on above: Performed By: #### 5 7021-8 #### BEVERLEY Poe ([id number]) [facility] ([facility]) [address] [place] [address] 36563 Glucose [Mass/Vol] 124 mg/dL High 74 - 99 mg/dL [facility] Interpretation and review of laboratory results Abnormal [facility] Glucose [Mass/Vol] 124 mg/dL High 74-99 [facility] Comment on above: Performed By: #### 5 7021-8 #### BEVERLEY Poe ([id number]) [facility] ([facility]) [address] [place] [address] 29404 HBV surface Ag IA Qlon 09-19 Interpretation and review of laboratory results Normal [facility] Hepatitis B Surface Antigeno n 09-19-2023 HBV surface Ag IA Ql Non-Reactive Nonreactive U [facility] - Microbiology an d Antimicrobial susceptibilityon 09-19-2023 Bacteria identified Cx Nom (Bld) No growth at 4 days - FINAL REPORT [facility] Magnesiumon 09-19-2023 Magnesium [Mass/Vol] 2.22 mg/dL 1.60 - 2.40 mg/dL [facility] Magnesium [Mass/Vol] 2.22 mg/dL Normal 1.60-2.40 [facility] Comment on above: Performed By: #### 6 00-7 #### BEVERLEY Poe ([id number]) [facility] ([facility]) [address] [place], [place] [id number] Magnesium [Mass/Vol]on 09-19 Interpretation and review of laboratory results Normal [facility] Natriuretic peptide B [Mass/ Vol]on 09-19-2023 Interpretation and review of laboratory results Abnormal [facility] Natriuretic peptide B (Bld) [Mass/Vol] 154 pg/mL High 0 - 99 pg/mL [facility] Natriuretic peptide B (Bld) [Mass/Vol] 154 pg/mL High 0-99 [facility] Comment on above: Order Comment: <100 pg/mL - Heart failure [id number] pg/mL - Intermediate probability of acute heart [...] By: #### 6 00-7 #### BEVERLEY Poe ([id number]) [facility] ([facility]) [address] [place] [address] 08792 No Panel Informationon 09-19 Radiology Study observation (narrative) [facility] Work Phone: [facility] PT and aPTT panel Coag (PPP) on 09-19-2023 aPTT Coag (PPP) [Time] [address] [facility] INR Coag (PPP) [Relative time] 1.1 {INR} 0.9 - 1.1 [facility] Interpretation and review of laboratory results Normal [facility] PT Coag (PPP) [Time] 12.3 s [facility] aPTT Coag (PPP) [Time] 32 s Normal 27-38 [facility] Comment on above: Order Comment: The A PTT is no longer used for monitoring Unfractionated Heparin Therapy. For monitoring Heparin Therapy, use the Heparin Assay. Performed By: #### 5 7021-8 #### BEVERLEY Poe ([id number]) [facility] ([facility]) [address] [place] [address] 89123 INR Coag (PPP) [Relative time] 1.1 Normal 0.9-1.1 [facility] Comment on above: Order Comment: The A PTT is no longer used for monitoring Unfractionated Heparin Therapy. For monitoring Heparin Therapy, use the Heparin Assay. Performed By: #### 5 7021-8 #### BEVERLEY Poe ([id number]) [facility] ([facility]) [address] [place] [address] 34219 PT Coag (PPP) [Time] 12.3 s Normal 9.8-12.8 [facility] Comment on above: Order Comment: The A PTT is no longer used for monitoring Unfractionated Heparin Therapy. For monitoring Heparin Therapy, use the Heparin Assay. Performed By: #### 5 7021-8 #### BEVERLEY Poe ([id number]) [facility] ([facility]) [address] [place] [address] 52797 Renal function 2000 panelon 09-19-2023 Albumin BCP dye [Mass/Vol] 2.8 g/dL Low 3.4 - 5.0 g/dL [facility] Anion gap [Moles/Vol] 14 mmol/L 10 - 2 0 mmol/L [facility] Calcium [Mass/Vol] 8.2 mg/dL Low 8.6 - 10. 6 mg/dL [facility] Chloride [Moles/Vol] 101 mmol/L 98 - 10 7 mmol/L [facility] CO2 [Moles/Vol] 35 mmol/L High 21 - 32 mmol/L [facility] Creatinine [Mass/Vol] 0.40 mg/dL Low 0.50 - 1.05 mg/dL [facility] GFR/1.73 sq M.predicted MDRD (S/P/Bld) [Vol rate/Area] - PINF [facility] Glucose [Mass/Vol] 122 mg/dL High 74 - 99 mg/dL [facility] Interpretation and review of laboratory results Abnormal [facility] Phosphate [Mass/Vol] 2.9 mg/dL 2.5 - 4 .9 mg/dL [facility] Potassium [Moles/Vol] 3.9 mmol/L 3.5 - 5.3 mmol/L [facility] Sodium [Moles/Vol] 146 mmol/L High 136 - 145 mmol/L [facility] Urea nitrogen [Mass/Vol] 9 mg/dL 6 - 23 mg/dL [facility] Albumin BCP dye [Mass/Vol] 2.8 g/dL Low 3.4-5.0 [facility] Comment on above: Performed By: #### 6 00-7 #### BEVERLEY Poe ([id number]) [facility] ([facility]) [address] [place] [address] 45681 Anion gap [Moles/Vol] 14 mmol/L Normal 10-20 [facility] Comment on above: Performed By: #### 6 00-7 #### BEVERLEY Poe ([id number]) [facility] ([facility]) [address] [place] [address] 35829 Calcium [Mass/Vol] 8.2 mg/dL Low 8.6-10.6 [facility] Comment on above: Performed By: #### 6 00-7 #### BEVERLEY Poe ([id number]) [facility] ([facility]) [address] [place] [address] 53367 Chloride [Moles/Vol] 101 mmol/L Normal 98-107 [facility] Comment on above: Performed By: #### 6 00-7 #### BEVERLEY Poe ([id number]) [facility] ([facility]) [address] [place] [address] CO2 [Moles/Vol] 35 mmol/L High 21-32 [facility] Comment on above: Performed By: #### 6 00-7 #### BEVERLEY Poe ([id number]) [facility] ([facility]) [address] [place] [address] Creatinine [Mass/Vol] 0.40 mg/dL Low 0.50-1.05 [facility] Comment on above: Performed By: #### 6 00-7 #### BEVERLEY Poe ([id number]) [facility] ([facility]) [address] [place] [address] GFR/1.73 sq M.predicted MDRD (S/P/Bld) [Vol rate/Area] mL/min/{1.73_m2} Normal >60 [facility] Comment on above: Result Comment: Calc ulations of estimated GFR are performed using the 2020 CKD-EPI Study Refit equation without the race variable for the IDMS-Traceable creatinine methods. https://jasn.asnjournals.org/content//ASN.66159 11538 Performed By: #### 6 00-7 #### BEVERLEY Poe ([id number]) [facility] ([facility]) [address] [place] [address] Glucose [Mass/Vol] 122 mg/dL High 74-99 [facility] Comment on above: Performed By: #### 6 00-7 #### BEVERLEY Poe ([id number]) [facility] ([facility]) [address] [place] [address] Phosphate [Mass/Vol] 2.9 mg/dL Normal 2.5-4.9 [facility] Comment on above: Result Comment: The performance characteristics of phosphorus testing in heparinized plasma have been validated by the individual laboratory site where testing is performed. Testing on heparinized plasma is not approved by the FDA; however, such approval is not necessary. Performed By: #### -7 #### BEVERLEY SCHMOTZER L ([id number]) [facility] ([facility]) [address] [place] [address] Potassium [Moles/Vol] 3.9 mmol/L Normal 3.5-5.3 [facility] Comment on above: Performed By: #### 6 00-7 #### BEVERLEY SCHMOTZER L ([id number]) [facility] ([facility]) [address] [place] [address] Sodium [Moles/Vol] 146 mmol/L High 136-145 [facility] Comment on above: Performed By: #### 6 00-7 #### BEVERLEY SCHMOTZER L ([id number]) [facility] ([facility]) [address] [place] [address] 56347 Urea nitrogen [Mass/Vol] 9 mg/dL Normal 6-23 [facility] Comment on above: Performed By: #### 6 00-7 #### BEVERLEY SCHMOTZER L ([id number]) [facility] ([facility]) [address] [place] [address] 04660 US ABDOMEN LIMITED LIVERon 1 11-19-2022 US ABDOMEN LIMITED LIVER Interpreted By: Steven Chacon and Ebai Jerky STUDY: US ABDOMEN LIMITED LIVER; [facility] US ABDOMINAL/PELVIC DUPLEX COMPLETE; 09/19/2023 6:30 pm INDICATION: 72 y/o F with Signs/Symptoms:Throbocyto penia workup; Signs/Symptoms:per doctor request. COMPARISON: None. ACCESSION NUMBER(S): [id number]; [id number] ORDERING CLINICIAN: KANG JULIAN TECHNIQUE: Multiple images of the right upper quadrant were obtained. Gates scale, color Doppler and spectral Doppler waveform analysis was performed. This examination was interpreted at [facility]. FINDINGS: The liver measures 22.6 cm [...] as stated. This study was interpreted at [facility], [place], [place]. MACRO: None Signed by: Steven Chacon 09/20/2023 5:44 AM Dictation workstation: [id number] Normal [facility] Comment on above: Order Comment: Pleas e include portal vein flow velocitys [facility] US ABDOMINAL/PELVIC DUP SRINATH COMPLETEon 09-19-2023 VAS US ABDOMINAL/PELVIC DUPLEX COMPLETE Interpreted By: Steven Chacon, and Kim Sheikh STUDY: US ABDOMEN LIMITED LIVER; [facility] US ABDOMINAL/PELVIC DUPLEX COMPLETE; 09/19/2023 6:30 pm INDICATION: 72 y/o F with Signs/Symptoms:Throbocyto penia workup; Signs/Symptoms:per doctor request. COMPARISON: None. ACCESSION NUMBER(S): [id number]; [id number] ORDERING CLINICIAN: KANG JULIAN TECHNIQUE: Multiple images of the right upper quadrant were obtained. Gates scale, color Doppler and spectral Doppler waveform analysis was performed. This examination was interpreted at [facility]. FINDINGS: The liver measures 22.6 cm [...] as stated. This study was interpreted at [place], [place]. MACRO: None Signed by: Steven Chacon 09/20/2023 5:44 AM Dictation workstation: [id number] [facility] Comment on above: Order Comment: Pleas e include portal vein flow velocitys XR CHEST 1 VIEWon 09-19-2023 XR CHEST 1 VIEW Interpreted By: Delfin Clemens and [place] Lesley STUDY: XR CHEST 1 VIEW; 09/19/2023 8:46 am INDICATION: Signs/Symptoms:copd on oxygen. COMPARISON: Outside hospital CT chest 03/20/2014 ACCESSION NUMBER(S): [id number] ORDERING CLINICIAN: RIMA APPLE FINDINGS: Single AP [...] as stated. This study was interpreted at [facility], [place], [place]. MACRO: None Signed by: Delfin Menezes 09/19/2023 9:36 AM Dictation workstation: [id number] Normal [facility] XR Chest Single viewon 09-19 [facility] MMODAL U[facility] MMODAL [facility] Work Phone: Radiology Study observation (narrative) [facility] Work Phone: XR Chest Single viewOrdered By: Delfin Menezes on 09-19-2023 [facility] Work Phone: CBC panel Auto (Bld)on 09-18 Erythrocyte distribution width (RBC) [Ratio] 13.8 % 11.5 - 14.5 % [facility] Hematocrit (Bld) [Volume fraction] 26.9 % Low 36.0 - 46.0 % [facility] Hemoglobin (Bld) [Mass/Vol] 8.0 g/dL Low 12.0 - 16.0 g/dL [facility] Interpretation and review of laboratory results Abnormal [facility] MCH (RBC) [Entitic mass] 30.3 pg 26.0 - 34.0 pg [facility] MCHC (RBC) [Mass/Vol] 29.7 g/dL Low 32.0 - 36.0 g/dL [facility] MCV (RBC) [Entitic vol] 102 fL High 80 - 100 fL [facility] Nucleated RBC/100 WBC (Bld) [Ratio] 0.0 % [facility] Platelets (Bld) [#/Vol] 91 10*3/uL Low [facility] RBC (Bld) [#/Vol] 2.64 10*6/uL [facility] WBC (Bld) [#/Vol] 4.2 10*3/uL [facility] Erythrocyte distribution width (RBC) [Ratio] 13.8 % Normal 11.5-14.5 [facility] Comment on above: Performed By: #### 2 4323-8 #### BEVERLEY Poe ([id number]) [facility] ([facility]) [address] [place] [address] 00841 Hematocrit (Bld) [Volume fraction] 26.9 % Low 36.0-46.0 [facility] Comment on above: Performed By: #### 2 4323-8 #### BEVERLEY Poe ([id number]) [facility] ([facility]) [address] [place] [address] 71799 Hemoglobin (Bld) [Mass/Vol] 8.0 g/dL Low 12.0-16.0 [facility] Comment on above: Performed By: #### 2 4323-8 #### BEVERLEY Poe ([id number]) [facility] ([facility]) [address] [place] [address] 26480 MCH (RBC) [Entitic mass] 30.3 pg Normal 26.0-34.0 [facility] Comment on above: Performed By: #### 2 4323-8 #### BEVERLEY Poe ([id number]) [facility] ([facility]) [address] [place] [address] 07091 MCHC (RBC) [Mass/Vol] 29.7 g/dL Low 32.0-36.0 [facility] Comment on above: Performed By: #### 2 4323-8 #### BEVERLEY Poe ([id number]) [facility] ([facility]) [address] [place] [address] 77196 MCV (RBC) [Entitic vol] 102 fL High 80-100 [facility] Comment on above: Performed By: #### 2 4323-8 #### BEVERLEY Poe ([id number]) [facility] ([facility]) [address] [place] [address] 10756 Nucleated RBC/100 WBC (Bld) [Ratio] 0.0 /100 WBCs Normal 0.0-0.0 [facility] Comment on above: Performed By: #### 2 4323-8 #### BEVERLEY Poe ([id number]) [facility] ([facility]) [address] [place] [address] 86765 Platelets (Bld) [#/Vol] 91 x10*3/uL Low 150-450 [facility] Comment on above: Performed By: #### 2 4323-8 #### BEVERLEY Poe ([id number]) [facility] ([facility]) [address] [place] [address] 28151 RBC (Bld) [#/Vol] 2.64 x10*6/uL Low 4.00-5.20 [facility] Comment on above: Performed By: #### 2 4323-8 #### BEVERLEY Poe ([id number]) [facility] ([facility]) [address] [place] [address] 28644 WBC (Bld) [#/Vol] 4.2 x10*3/uL Low 4.4-11.3 [facility] Comment on above: Performed By: #### 2 4323-8 #### BEVERLEY Poe ([id number]) [facility] ([facility]) [address] [place] [address] 44695 Cancer Ag 125on 09-18-2023 Cancer Ag 125 Qn 22.0 [arb'U]/mL Normal 0.0-30.2 [facility] Comment on above: Order Comment: CA 12 5 testing is performed by chemiluminescent immunoassay using the Namely. Values obtained with different analytic methods cannot [...] By: #### 3 4532-2 #### BEVERLEY Poe ([id number]) [facility] ([facility]) [address] [place] [address] 61123 Ferritinon 09-18-2023 Ferritin [Mass/Vol] 344 ng/mL High 8 - 150 ng/mL [facility] Ferritin [Mass/Vol] 344 ng/mL High 8-150 [facility] Comment on above: Performed By: #### 5 7021-8 #### BEVERLEY Poe ([id number]) [facility] ([facility]) [address] [place] [address] 85331 Glucose Test strip manual (B ld) [Mass/Vol]on 09-18-2023 Glucose [Mass/Vol] 119 mg/dL High 74 - 99 mg/dL [facility] Interpretation and review of laboratory results Abnormal [facility] Glucose [Mass/Vol] 119 mg/dL High 74-99 [facility] Comment on above: Performed By: #### 5 7021-8 #### BEVERLEY Poe ([id number]) [facility] ([facility]) [address] [place] [address] 22788 Glucose [Mass/Vol] 135 mg/dL High 74 - 99 mg/dL [facility] Interpretation and review of laboratory results Abnormal [facility] Glucose [Mass/Vol] 135 mg/dL High 74-99 [facility] Comment on above: Performed By: #### 2 4323-8 #### BEVERLEY Poe ([id number]) [facility] ([facility]) [address] [place] [address] 03505 Glucose [Mass/Vol] 108 mg/dL High 74 - 99 mg/dL [facility] Interpretation and review of laboratory results Abnormal [facility] Glucose [Mass/Vol] 108 mg/dL High 74-99 [facility] Comment on above: Performed By: #### 2 4323-8 #### BEVERLEY Poe ([id number]) [facility] ([facility]) [address] [place] [address] 27692 HbA1c (Bld) [Mass fraction]o n 09-18-2023 Average glucose Estimated from glycated hemoglobin (Bld) [Mass/Vol] 91 mg/dL Not Established [facility] Average glucose Estimated from glycated hemoglobin (Bld) [Mass/Vol] 91 mg/dL Normal Not Established [facility] Comment on above: Order Comment: Diagn osis of Bvdoybhn-AsnejbKar-Dnpmjbsl: < or = 5.6%Increased risk for developing diabetes: 5.7-6.4%Diagnostic of diabetes: > or = 6.5%Monitoring of DiabetesAge (y)....................... Therapeutic Goal (%)Adults: >18.........................<7.0Pediatrics: 13-18...................<7.5Pediatrics: 7-12....................<8.0Pediatrics: 0-6..................... 7.5-8.5American Diabetes Association. Diabetes Care 33(S1)Nov 2009 Performed By: #### 2 4323-8 #### BEVERLEY Poe ([id number]) [facility] ([facility]) [address] [place] [id number] Hemoglobin A1con 09-18-2023 HbA1c (Bld) [Mass fraction] 4.8 % see below [facility] Hemoglobin A1c/Hemoglobin.to daphne 09-18-2023 HbA1c (Bld) [Mass fraction] 4.8 % Normal see below [facility] Comment on above: Order Comment: Diagn osis of Dgqzpjhz-CgofjeGhu-Cedrwhel: < or = 5.6%Increased risk for developing diabetes: 5.7-6.4%Diagnostic of diabetes: > or = 6.5%Monitoring of DiabetesAge (y)....................... Therapeutic Goal (%)Adults: >18.........................<7.0Pediatrics: 13-18...................<7.5Pediatrics: 7-12....................<8.0Pediatrics: 0-6..................... 7.5-8.5American Diabetes Association. Diabetes Care 33(S1), Nov 2009 Performed By: #### 2 4323-8 #### BEVERLEY Poe ([id number]) [facility] ([facility]) [address] [place] [address] Hepatic function 2000 panelo n 09-18-2023 Albumin BCP dye [Mass/Vol] 2.7 g/dL Low 3.4 - 5.0 g/dL [facility] ALP [Catalytic activity/Vol] 47 U/L 33 - 136 U/L [facility] ALT With P-5'-P [Catalytic activity/Vol] 7 U/L 7 - 45 U/L [facility] AST With P-5'-P [Catalytic activity/Vol] 10 U/L 9 - 39 U/L [facility] Bilirubin [Mass/Vol] 0.4 mg/dL 0.0 - 1 .2 mg/dL [facility] Bilirubin.direct [Mass/Vol] 0.1 mg/dL 0.0 - 0.3 mg/dL [facility] Interpretation and review of laboratory results Abnormal [facility] Protein [Mass/Vol] 5.7 g/dL Low 6.4 - 8.2 g/dL [facility] Albumin BCP dye [Mass/Vol] 2.7 g/dL Low 3.4-5.0 [facility] Comment on above: Performed By: #### 2 4323-8 #### BEVERLEY Poe ([id number]) [facility] ([facility]) [address] [place] [address] ALP [Catalytic activity/Vol] 47 U/L Normal 33-136 [facility] Comment on above: Performed By: #### 2 4323-8 #### BEVERLEY Poe ([id number]) [facility] ([facility]) [address] [place] [address] 40658 ALT With P-5'-P [Catalytic activity/Vol] 7 U/L Normal 7-45 [facility] Comment on above: Result Comment: Ирина ents treated with Sulfasalazine may generate falsely decreased results for ALT. Performed By: #### 2 4323-8 #### BEVERLEY Poe ([id number]) [facility] ([facility]) [address] [place] [address] AST With P-5'-P [Catalytic activity/Vol] 10 U/L Normal 9-39 [facility] Comment on above: Performed By: #### 2 4323-8 #### BEVERLEY Poe ([id number]) [facility] ([facility]) [address] [place] [address] Bilirubin [Mass/Vol] 0.4 mg/dL Normal 0.0-1.2 [facility] Comment on above: Performed By: #### 2 4323-8 #### BEVERLEY Poe ([id number]) [facility] ([facility]) [address] [place] [address] 68275 Bilirubin.direct [Mass/Vol] 0.1 mg/dL Normal 0.0-0.3 [facility] Comment on above: Performed By: #### 2 4323-8 #### BEVERLEY Poe ([id number]) [facility] ([facility]) [address] [place] [address] 40404 Protein [Mass/Vol] 5.7 g/dL Low 6.4-8.2 [facility] Comment on above: Performed By: #### 2 4323-8 #### BEVERLEY Poe ([id number]) [facility] ([facility]) [address] [place], [place] [id number] Hepatitis B virus surface Ag on 09-18-2023 HBV surface Ag IA Ql Non-Reactive Normal Nonreactive U [facility] Comment on above: Result Comment: Biot in interference may cause falsely decreased results. Patients taking a Biotin dose of up to 5 mg/day should refrain from taking Biotin for 24 hours before sample collection. Providers may contact their local laboratory for further information. Performed By: #### 6 00-7 #### BEVERLEY Poe ([id number]) [facility] ([facility]) [address] [place], [place] [phone] Iron and Iron binding capaci ty panelon 09-18-2023 Iron [Mass/Vol] 33 ug/dL Low 35 - 150 ug/dL [facility] Iron binding capacity [Mass/Vol] 164 ug/dL Low 240 - 445 ug/dL [facility] Iron binding capacity.unsaturated [Mass/Vol] 131 ug/dL 110 - 370 ug/dL [facility] Iron saturation [Mass fraction] 20 % Low 25 - 45 % [facility] Iron [Mass/Vol] 33 ug/dL Low 35-150 [facility] Comment on above: Performed By: #### 5 7021-8 #### BEVERLEY Poe ([id number]) [facility] ([facility]) [address] [place] [address] 85974 Iron binding capacity [Mass/Vol] 164 ug/dL Low 240-445 [facility] Comment on above: Performed By: #### 5 7021-8 #### BEVERLEY Poe ([id number]) [facility] ([facility]) [address] [place] [address] 07605 Iron binding capacity.unsaturated [Mass/Vol] 131 ug/dL Normal 110-370 [facility] Comment on above: Performed By: #### 5 7021-8 #### BEVERLEY Poe ([id number]) [facility] ([facility]) [address] [place] [address] 95808 Iron saturation [Mass fraction] 20 % Low 25-45 [facility] Comment on above: Performed By: #### 5 7021-8 #### BEVERLEY Poe ([id number]) [facility] ([facility]) [address] [place] [address] 82754 Magnesiumon 09-18-2023 Magnesium [Mass/Vol] 1.80 mg/dL 1.60 - 2.40 mg/dL [facility] Magnesium [Mass/Vol] 1.80 mg/dL Normal 1.60-2.40 [facility] Comment on above: Performed By: #### 2 4323-8 #### BEVERLEY Poe ([id number]) [facility] ([facility]) [address] [place] [address] 32447 Magnesium [Mass/Vol]on 09-18 Interpretation and review of laboratory results Normal [facility] Natriuretic peptide B [Mass/ Vol]on 09-18-2023 Interpretation and review of laboratory results Abnormal [facility] Natriuretic peptide B (Bld) [Mass/Vol] 144 pg/mL High 0 - 99 pg/mL [facility] Natriuretic peptide B (Bld) [Mass/Vol] 144 pg/mL High 0-99 [facility] Comment on above: Order Comment: <100 pg/mL - Heart failure [id number] pg/mL - Intermediate probability of acute heart [...] By: #### 5 7021-8 #### BEVERLEY Poe ([id number]) [facility] ([facility]) [address] [place] [address] No Panel Informationon 09-18 Interpretation and review of laboratory results Abnormal [facility] Prealbuminon 09-18-2023 Prealbumin [Mass/Vol] 11.4 mg/dL Low 18.0 - 40.0 mg/dL [facility] Prealbumin [Mass/Vol] 11.4 mg/dL Low 18.0-40.0 [facility] Comment on above: Performed By: #### 5 7021-8 #### BEVERLEY Poe ([id number]) [facility] ([facility]) [address] [place] [address] Prealbumin [Mass/Vol]on Interpretation and review of laboratory results Abnormal [facility] Renal function 2000 panelon 09-18-2023 Albumin BCP dye [Mass/Vol] 2.8 g/dL Low 3.4 - 5.0 g/dL [facility] Anion gap [Moles/Vol] 12 mmol/L 10 - 2 0 mmol/L [facility] Calcium [Mass/Vol] 8.6 mg/dL 8.6 - 10. 6 mg/dL [facility] Chloride [Moles/Vol] 99 mmol/L 98 - 10 7 mmol/L [facility] CO2 [Moles/Vol] 39 mmol/L High 21 - 32 mmol/L [facility] Creatinine [Mass/Vol] 0.37 mg/dL Low 0.50 - 1.05 mg/dL [facility] GFR/1.73 sq M.predicted MDRD (S/P/Bld) [Vol rate/Area] - PINF [facility] Glucose [Mass/Vol] 99 mg/dL 74 - 99 mg/dL [facility] Interpretation and review of laboratory results Abnormal [facility] Phosphate [Mass/Vol] 2.8 mg/dL 2.5 - 4 .9 mg/dL [facility] Potassium [Moles/Vol] 3.6 mmol/L 3.5 - 5.3 mmol/L [facility] Sodium [Moles/Vol] 146 mmol/L High 136 - 145 mmol/L [facility] Urea nitrogen [Mass/Vol] 11 mg/dL 6 - 23 mg/dL [facility] Albumin BCP dye [Mass/Vol] 2.8 g/dL Low 3.4-5.0 [facility] Comment on above: Performed By: #### 2 4323-8 #### BEVERLEY Poe ([id number]) [facility] ([facility]) [address] [place] [address] 73820 Anion gap [Moles/Vol] 12 mmol/L Normal 10-20 [facility] Comment on above: Performed By: #### 2 4323-8 #### BEVERLEY Poe ([id number]) [facility] ([facility]) [address] [place] [address] 96033 Calcium [Mass/Vol] 8.6 mg/dL Normal 8.6-10.6 [facility] Comment on above: Performed By: #### 2 4323-8 #### BEVERLEY DODD L ([id number]) [facility] ([facility]) [address] [place] [address] 97000 Chloride [Moles/Vol] 99 mmol/L Normal 98-107 [facility] Comment on above: Performed By: #### 2 4323-8 #### BEVERLEY Poe ([id number]) [facility] ([facility]) [address] [place] [address] 75295 CO2 [Moles/Vol] 39 mmol/L High 21-32 [facility] Comment on above: Performed By: #### 2 4323-8 #### BEVERLEY Poe ([id number]) [facility] ([facility]) [address] [place] [address] Creatinine [Mass/Vol] 0.37 mg/dL Low 0.50-1.05 [facility] Comment on above: Performed By: #### 2 4323-8 #### BEVERLEY Poe ([id number]) [facility] ([facility]) [address] [place] [address] GFR/1.73 sq M.predicted MDRD (S/P/Bld) [Vol rate/Area] mL/min/{1.73_m2} Normal >60 [facility] Comment on above: Result Comment: Calc ulations of estimated GFR are performed using the 2020 CKD-EPI Study Refit equation without the race variable for the IDMS-Traceable creatinine methods. https://jasn.asnjournals.org/content//ASN.49563 79824 Performed By: #### 2 4323-8 #### BEVERLEY Poe ([id number]) [facility] ([facility]) [address] [place] [address] Glucose [Mass/Vol] 99 mg/dL Normal 74-99 [facility] Comment on above: Performed By: #### 2 4323-8 #### BEVERLEY Poe ([id number]) [facility] ([facility]) [address] [place] [address] Phosphate [Mass/Vol] 2.8 mg/dL Normal 2.5-4.9 [facility] Comment on above: Result Comment: The performance characteristics of phosphorus testing in heparinized plasma have been validated by the individual laboratory site where testing is performed. Testing on heparinized plasma is not approved by the FDA; however, such approval is not necessary. Performed By: #### 2 4323-8 #### BEVERLEY Poe ([id number]) [facility] ([facility]) [address] [place] [address] Potassium [Moles/Vol] 3.6 mmol/L Normal 3.5-5.3 [facility] Comment on above: Performed By: #### 2 4323-8 #### BEVERLEY Poe ([id number]) [facility] ([facility]) [address] [place] [address] Sodium [Moles/Vol] 146 mmol/L High 136-145 [facility] Comment on above: Performed By: #### 2 4323-8 #### BEVERLEY Poe ([id number]) [facility] ([facility]) [address] [place] [address] Urea nitrogen [Mass/Vol] 11 mg/dL Normal 6-23 [facility] Comment on above: Performed By: #### 2 4323-8 #### BEVERLEY Poe ([id number]) [facility] ([facility]) [address] [place] [address] 81963 CBC panel Auto (Bld)on 09-17 Erythrocyte distribution width (RBC) [Ratio] 13.8 % 11.5 - 14.5 % [facility] Hematocrit (Bld) [Volume fraction] 27.0 % Low 36.0 - 46.0 % [facility] Hemoglobin (Bld) [Mass/Vol] 8.2 g/dL Low 12.0 - 16.0 g/dL [facility] Interpretation and review of laboratory results Abnormal [facility] MCH (RBC) [Entitic mass] 30.6 pg 26.0 - 34.0 pg [facility] MCHC (RBC) [Mass/Vol] 30.4 g/dL Low 32.0 - 36.0 g/dL [facility] MCV (RBC) [Entitic vol] 101 fL High 80 - 100 fL [facility] Nucleated RBC/100 WBC (Bld) [Ratio] 0.0 % [facility] Platelets (Bld) [#/Vol] 88 10*3/uL Low [facility] RBC (Bld) [#/Vol] 2.68 10*6/uL [facility] WBC (Bld) [#/Vol] 3.7 10*3/uL [facility] Erythrocyte distribution width (RBC) [Ratio] 13.8 % Normal 11.5-14.5 [facility] Comment on above: Performed By: #### 1 9123-9 #### BEVERLEY Poe ([id number]) [facility] ([facility]) [address] [place] [address] 60393 Hematocrit (Bld) [Volume fraction] 27.0 % Low 36.0-46.0 [facility] Comment on above: Performed By: #### 1 9123-9 #### BEVERLEY Poe ([id number]) [facility] ([facility]) [address] [place] [address] 31126 Hemoglobin (Bld) [Mass/Vol] 8.2 g/dL Low 12.0-16.0 [facility] Comment on above: Performed By: #### 1 9123-9 #### BEVERLEY Poe ([id number]) [facility] ([facility]) [address] [place] [address] 29720 MCH (RBC) [Entitic mass] 30.6 pg Normal 26.0-34.0 [facility] Comment on above: Performed By: #### 1 9123-9 #### BEVERLEY Poe ([id number]) [facility] ([facility]) [address] [place] [address] 05878 MCHC (RBC) [Mass/Vol] 30.4 g/dL Low 32.0-36.0 [facility] Comment on above: Performed By: #### 1 9123-9 #### BEVERLEY Poe ([id number]) [facility] ([facility]) [address] [place] [address] 48624 MCV (RBC) [Entitic vol] 101 fL High 80-100 [facility] Comment on above: Performed By: #### 1 9123-9 #### BEVERLEY Poe ([id number]) [facility] ([facility]) [address] [place] [address] 84393 Nucleated RBC/100 WBC (Bld) [Ratio] 0.0 /100 WBCs Normal 0.0-0.0 [facility] Comment on above: Performed By: #### 1 9123-9 #### BEVERLEY Poe ([id number]) [facility] ([facility]) [address] [place] [address] 47348 Platelets (Bld) [#/Vol] 88 x10*3/uL Low 150-450 [facility] Comment on above: Performed By: #### 1 9123-9 #### BEVERLEY Poe ([id number]) [facility] ([facility]) [address] [place] [address] 55985 RBC (Bld) [#/Vol] 2.68 x10*6/uL Low 4.00-5.20 [facility] Comment on above: Performed By: #### 1 9123-9 #### BEVERLEY Poe ([id number]) [facility] ([facility]) [address] [place] [address] 51849 WBC (Bld) [#/Vol] 3.7 x10*3/uL Low 4.4-11.3 [facility] Comment on above: Performed By: #### 1 9123-9 #### BEVERLEY Poe ([id number]) [facility] ([facility]) [address] [place] [address] 07935 Glucose Test strip manual (B ld) [Mass/Vol]on 09-17-2023 Glucose [Mass/Vol] 142 mg/dL High 74 - 99 mg/dL [facility] Interpretation and review of laboratory results Abnormal [facility] Glucose [Mass/Vol] 142 mg/dL High 74-99 [facility] Comment on above: Performed By: #### 2 4323-8 #### BEVERLEY Poe ([id number]) [facility] ([facility]) [address] [place] [address] 85896 Glucose [Mass/Vol] 117 mg/dL High 74 - 99 mg/dL [facility] Interpretation and review of laboratory results Abnormal [facility] Glucose [Mass/Vol] 117 mg/dL High 74-99 [facility] Comment on above: Performed By: #### 2 4323-8 #### BEVERLEY Poe ([id number]) [facility] ([facility]) [address] [place] [address] 21781 Glucose [Mass/Vol] 138 mg/dL High 74 - 99 mg/dL [facility] Interpretation and review of laboratory results Abnormal [facility] Glucose [Mass/Vol] 138 mg/dL High 74-99 [facility] Comment on above: Performed By: #### 2 4323-8 #### BEVERLEY Poe ([id number]) [facility] ([facility]) [address] [place] [address] 28725 Glucose [Mass/Vol] 96 mg/dL 74 - 99 mg/dL [facility] Interpretation and review of laboratory results Normal [facility] Glucose [Mass/Vol] 96 mg/dL Normal 74-99 [facility] Comment on above: Performed By: #### 1 9123-9 #### BEVERLEY Poe ([id number]) [facility] ([facility]) [address] [place] [address] 13953 Magnesiumon 09-17-2023 Magnesium [Mass/Vol] 2.00 mg/dL 1.60 - 2.40 mg/dL [facility] Magnesium [Mass/Vol] 2.00 mg/dL Normal 1.60-2.40 [facility] Comment on above: Performed By: #### 1 9123-9 #### BEVERLEY Poe ([id number]) [facility] ([facility]) [address] [place] [address] 84590 Magnesium [Mass/Vol]on 09-17 Interpretation and review of laboratory results Normal [facility] No Panel Informationon 09-17 [facility] Renal function 2000 panelon 09-17-2023 Albumin BCP dye [Mass/Vol] 2.9 g/dL Low 3.4 - 5.0 g/dL [facility] Anion gap [Moles/Vol] 11 mmol/L 10 - 2 0 mmol/L [facility] Calcium [Mass/Vol] 8.7 mg/dL 8.6 - 10. 6 mg/dL [facility] Chloride [Moles/Vol] 100 mmol/L 98 - 10 7 mmol/L [facility] CO2 [Moles/Vol] 40 mmol/L Critically high 21 - 32 mmol/L [facility] Creatinine [Mass/Vol] 0.32 mg/dL Low 0.50 - 1.05 mg/dL [facility] GFR/1.73 sq M.predicted MDRD (S/P/Bld) [Vol rate/Area] - PINF [facility] Glucose [Mass/Vol] 95 mg/dL 74 - 99 mg/dL [facility] Interpretation and review of laboratory results Abnormal [facility] Phosphate [Mass/Vol] 3.8 mg/dL 2.5 - 4 .9 mg/dL [facility] Potassium [Moles/Vol] 3.8 mmol/L 3.5 - 5.3 mmol/L [facility] Sodium [Moles/Vol] 147 mmol/L High 136 - 145 mmol/L [facility] Urea nitrogen [Mass/Vol] 10 mg/dL 6 - 23 mg/dL [facility] Albumin BCP dye [Mass/Vol] 2.9 g/dL Low 3.4-5.0 [facility] Comment on above: Performed By: #### 1 9123-9 #### BEVERLEY Poe ([id number]) [facility] ([facility]) [address] [place] [address] 50634 Anion gap [Moles/Vol] 11 mmol/L Normal 10-20 [facility] Comment on above: Performed By: #### 1 9123-9 #### BEVERLEY Poe ([id number]) [facility] ([facility]) [address] [place] [address] Calcium [Mass/Vol] 8.7 mg/dL Normal 8.6-10.6 [facility] Comment on above: Performed By: #### 1 9123-9 #### BEVERLEY Poe ([id number]) [facility] ([facility]) [address] [place] [address] Chloride [Moles/Vol] 100 mmol/L Normal 98-107 [facility] Comment on above: Performed By: #### 1 9123-9 #### BEVERLEY Poe ([id number]) [facility] ([facility]) [address] [place] [address] 83972 CO2 [Moles/Vol] 40 mmol/L Critically high 21-32 [facility] Comment on above: Performed By: #### 1 9123-9 #### BEVERLEY Poe ([id number]) [facility] ([facility]) [address] [place] [address] 97841 Creatinine [Mass/Vol] 0.32 mg/dL Low 0.50-1.05 [facility] Comment on above: Performed By: #### 1 9123-9 #### BEVERLEY Poe ([id number]) [facility] ([facility]) [address] [place] [address] 72423 GFR/1.73 sq M.predicted MDRD (S/P/Bld) [Vol rate/Area] mL/min/{1.73_m2} Normal >60 [facility] Comment on above: Result Comment: Calc ulations of estimated GFR are performed using the 2020 CKD-EPI Study Refit equation without the race variable for the IDMS-Traceable creatinine methods. https://jasn.asnjournals.org/content/early//ASN.70690 52560 Performed By: #### 1 9123-9 #### BEVERLEY Poe ([id number]) [facility] ([facility]) [address] [place] [address] 59311 Glucose [Mass/Vol] 95 mg/dL Normal 74-99 [facility] Comment on above: Performed By: #### 1 9123-9 #### BEVERLEY Poe ([id number]) [facility] ([facility]) [address] [place] [address] 17182 Phosphate [Mass/Vol] 3.8 mg/dL Normal 2.5-4.9 [facility] Comment on above: Result Comment: The performance characteristics of phosphorus testing in heparinized plasma have been validated by the individual laboratory site where testing is performed. Testing on heparinized plasma is not approved by the FDA; however, such approval is not necessary. Performed By: #### 1 9123-9 #### BEVERLEY Poe ([id number]) [facility] ([facility]) [address] [place] [address] 18424 Potassium [Moles/Vol] 3.8 mmol/L Normal 3.5-5.3 [facility] Comment on above: Performed By: #### 1 9123-9 #### BEVERLEY Poe ([id number]) [facility] ([facility]) [address] [place] [address] 44850 Sodium [Moles/Vol] 147 mmol/L High 136-145 [facility] Comment on above: Performed By: #### 1 9123-9 #### BEVERLEY Poe ([id number]) [facility] ([facility]) [address] [place] [address] 64698 Urea nitrogen [Mass/Vol] 10 mg/dL Normal 6-23 [facility] Comment on above: Performed By: #### 1 9123-9 #### BEVERLEY Poe ([id number]) [facility] ([facility]) [address] [place] [address] 73568 Blood type and Indirect anti body screen panel (Bld)on 09-16-2023 ABO group Nom (Bld) O [facility] Blood group antibody screen Ql Negative [facility] D Ag Ql (Bld) Positive [facility] CBC panel Auto (Bld)on 09-16 Erythrocyte distribution width (RBC) [Ratio] 13.9 % 11.5 - 14.5 % [facility] Hematocrit (Bld) [Volume fraction] 29.3 % Low 36.0 - 46.0 % [facility] Hemoglobin (Bld) [Mass/Vol] 8.5 g/dL Low 12.0 - 16.0 g/dL [facility] Interpretation and review of laboratory results Abnormal [facility] MCH (RBC) [Entitic mass] 29.9 pg 26.0 - 34.0 pg [facility] MCHC (RBC) [Mass/Vol] 29.0 g/dL Low 32.0 - 36.0 g/dL [facility] MCV (RBC) [Entitic vol] 103 fL High 80 - 100 fL [facility] Nucleated RBC/100 WBC (Bld) [Ratio] 0.0 % [facility] Platelets (Bld) [#/Vol] 93 10*3/uL Low [facility] RBC (Bld) [#/Vol] 2.84 10*6/uL [facility] WBC (Bld) [#/Vol] 3.4 10*3/uL [facility] Erythrocyte distribution width (RBC) [Ratio] 13.9 % Normal 11.5-14.5 [facility] Comment on above: Performed By: #### 1 9123-9 #### BEVERLEY Poe ([id number]) [facility] ([facility]) [address] [place] [address] 40486 Hematocrit (Bld) [Volume fraction] 29.3 % Low 36.0-46.0 [facility] Comment on above: Performed By: #### 1 9123-9 #### BEVERLEY Poe ([id number]) [facility] ([facility]) [address] [place] [address] 36976 Hemoglobin (Bld) [Mass/Vol] 8.5 g/dL Low 12.0-16.0 [facility] Comment on above: Performed By: #### 1 9123-9 #### BEVERLEY Poe ([id number]) [facility] ([facility]) [address] [place] [address] 00034 MCH (RBC) [Entitic mass] 29.9 pg Normal 26.0-34.0 [facility] Comment on above: Performed By: #### 1 9123-9 #### BEVERLEY Poe ([id number]) [facility] ([facility]) [address] [place] [address] 25893 MCHC (RBC) [Mass/Vol] 29.0 g/dL Low 32.0-36.0 [facility] Comment on above: Performed By: #### 1 9123-9 #### BEVERLEY Poe ([id number]) [facility] ([facility]) [address] [place] [address] 36698 MCV (RBC) [Entitic vol] 103 fL High 80-100 [facility] Comment on above: Performed By: #### 1 9123-9 #### BEVERLEY Poe ([id number]) [facility] ([facility]) [address] [place] [address] 28577 Nucleated RBC/100 WBC (Bld) [Ratio] 0.0 /100 WBCs Normal 0.0-0.0 [facility] Comment on above: Performed By: #### 1 9123-9 #### BEVERLEY Poe ([id number]) [facility] ([facility]) [address] [place] [address] 20619 Platelets (Bld) [#/Vol] 93 x10*3/uL Low 150-450 [facility] Comment on above: Performed By: #### 1 9123-9 #### BEVERLEY Poe ([id number]) [facility] ([facility]) [address] [place] [address] 77547 RBC (Bld) [#/Vol] 2.84 x10*6/uL Low 4.00-5.20 [facility] Comment on above: Performed By: #### 1 9123-9 #### BEVERLEY Poe ([id number]) [facility] ([facility]) [address] [place] [address] 12948 WBC (Bld) [#/Vol] 3.4 x10*3/uL Low 4.4-11.3 [facility] Comment on above: Performed By: #### 1 9123-9 #### BEVERLEY Poe ([id number]) [facility] ([facility]) [address] [place] [address] 55670 Carcinoembryonic Agon 2022 Carcinoembryonic Ag [Mass/Vol] ng/mL Normal [facility] Comment on above: Order Comment: REF V ALUES NONSMOKERS 0-2.5 SMOKERS 0-5.0CEA testing is performed by chemiluminescent immunoassay using the Siemens Postdeck. Values obtained with different analytic methods cannot [...] By: #### 1 9123-9 #### BEVERLEY Poe ([id number]) [facility] ([facility]) [address] [place] [address] 59694 Carcinoembryonic Ag [Mass/Vo l]on 09-16-2023 [facility] Carcinoembryonic Antigenon 1 11-16-2022 Carcinoembryonic Ag [Mass/Vol] ug/L ug/L [facility] Glucose Test strip manual (B ld) [Mass/Vol]on 09-16-2023 Glucose [Mass/Vol] 96 mg/dL 74 - 99 mg/dL [facility] Interpretation and review of laboratory results Normal [facility] Glucose [Mass/Vol] 96 mg/dL Normal 74-99 [facility] Comment on above: Performed By: #### 1 9123-9 #### BEVERLEY Poe ([id number]) [facility] ([facility]) [address] [place] [address] 85401 Glucose [Mass/Vol] 94 mg/dL 74 - 99 mg/dL [facility] Interpretation and review of laboratory results Normal [facility] Glucose [Mass/Vol] 94 mg/dL Normal 74-99 [facility] Comment on above: Performed By: #### 1 9123-9 #### BEVERLEY Poe ([id number]) [facility] ([facility]) [address] [place] [address] 95831 Glucose [Mass/Vol] 98 mg/dL 74 - 99 mg/dL [facility] Interpretation and review of laboratory results Normal [facility] Glucose [Mass/Vol] 98 mg/dL Normal 74-99 [facility] Comment on above: Performed By: #### 2 341-6 #### BEVERLEY Poe ([id number]) [facility] ([facility]) [address] [place] [address] 96472 Glucose [Mass/Vol] 92 mg/dL 74 - 99 mg/dL [facility] Interpretation and review of laboratory results Normal [facility] Glucose [Mass/Vol] 92 mg/dL Normal 74-99 [facility] Comment on above: Performed By: #### 2 341-6 #### BEVERLEY Poe ([id number]) [facility] ([facility]) [address] [place] [address] 56146 Glucose [Mass/Vol] 88 mg/dL 74 - 99 mg/dL [facility] Interpretation and review of laboratory results Normal [facility] Glucose [Mass/Vol] 88 mg/dL Normal 74-99 [facility] Comment on above: Performed By: #### 2 341-6 #### BEVERLEY Poe ([id number]) [facility] ([facility]) [address] [place] [address] 68619 Magnesiumon 09-16-2023 Magnesium [Mass/Vol] 2.04 mg/dL 1.60 - 2.40 mg/dL [facility] Magnesium [Mass/Vol] 2.04 mg/dL Normal 1.60-2.40 [facility] Comment on above: Performed By: #### 1 9123-9 #### BEVERLEY Poe ([id number]) [facility] ([facility]) [address] [place] [address] 31916 Magnesium [Mass/Vol]on 09-16 Interpretation and review of laboratory results Normal [facility] No Panel Informationon 09-16 [facility] Renal function 2000 panelon 09-16-2023 Albumin BCP dye [Mass/Vol] 3.0 g/dL Low 3.4 - 5.0 g/dL [facility] Anion gap [Moles/Vol] 10 mmol/L 10 - 2 0 mmol/L [facility] Calcium [Mass/Vol] 8.8 mg/dL 8.6 - 10. 6 mg/dL [facility] Chloride [Moles/Vol] 99 mmol/L 98 - 10 7 mmol/L [facility] CO2 [Moles/Vol] 40 mmol/L Critically high 21 - 32 mmol/L [facility] Creatinine [Mass/Vol] 0.40 mg/dL Low 0.50 - 1.05 mg/dL [facility] GFR/1.73 sq M.predicted MDRD (S/P/Bld) [Vol rate/Area] - PINF [facility] Glucose [Mass/Vol] 88 mg/dL 74 - 99 mg/dL [facility] Interpretation and review of laboratory results Abnormal [facility] Phosphate [Mass/Vol] 3.1 mg/dL 2.5 - 4 .9 mg/dL [facility] Potassium [Moles/Vol] 3.7 mmol/L 3.5 - 5.3 mmol/L [facility] Sodium [Moles/Vol] 145 mmol/L 136 - 145 mmol/L [facility] Urea nitrogen [Mass/Vol] 12 mg/dL 6 - 23 mg/dL [facility] Albumin BCP dye [Mass/Vol] 3.0 g/dL Low 3.4-5.0 [facility] Comment on above: Performed By: #### 1 9123-9 #### BEVERLEY Poe ([id number]) [facility] ([facility]) [address] [place] [address] 41896 Anion gap [Moles/Vol] 10 mmol/L Normal 10-20 [facility] Comment on above: Performed By: #### 1 9123-9 #### BEVERLEY Poe ([id number]) [facility] ([facility]) [address] [place] [address] 80719 Calcium [Mass/Vol] 8.8 mg/dL Normal 8.6-10.6 [facility] Comment on above: Performed By: #### 1 9123-9 #### BEVERLEY Poe ([id number]) [facility] ([facility]) [address] [place] [address] Chloride [Moles/Vol] 99 mmol/L Normal 98-107 [facility] Comment on above: Performed By: #### 1 9123-9 #### BEVERLEY DODD L ([id number]) [facility] ([facility]) [address] [place] [address] CO2 [Moles/Vol] 40 mmol/L Critically high 21-32 [facility] Comment on above: Performed By: #### 1 9123-9 #### BEVERLEY Poe (47218) [facility] ([facility]) [address] [place] [address] Creatinine [Mass/Vol] 0.40 mg/dL Low 0.50-1.05 [facility] Comment on above: Performed By: #### 1 9123-9 #### BEVERLEY Poe ([id number]) [facility] ([facility]) [address] [place] [address] GFR/1.73 sq M.predicted MDRD (S/P/Bld) [Vol rate/Area] mL/min/{1.73_m2} Normal >60 [facility] Comment on above: Result Comment: Calc ulations of estimated GFR are performed using the 2020 CKD-EPI Study Refit equation without the race variable for the IDMS-Traceable creatinine methods. https://jasn.asnjournals.org/content//ASN.08291 36782 Performed By: #### 1 9123-9 #### BEVERLEY Poe ([id number]) [facility] ([facility]) [address] [place] [address] Glucose [Mass/Vol] 88 mg/dL Normal 74-99 [facility] Comment on above: Performed By: #### 1 9123-9 #### BEVERLEY Poe ([id number]) [facility] ([facility]) [address] [place] [address] Phosphate [Mass/Vol] 3.1 mg/dL Normal 2.5-4.9 [facility] Comment on above: Result Comment: The performance characteristics of phosphorus testing in heparinized plasma have been validated by the individual laboratory site where testing is performed. Testing on heparinized plasma is not approved by the FDA; however, such approval is not necessary. Performed By: #### 1 9123-9 #### BEVERLEY Poe ([id number]) [facility] ([facility]) [address] [place] [address] 00845 Potassium [Moles/Vol] 3.7 mmol/L Normal 3.5-5.3 [facility] Comment on above: Performed By: #### 1 9123-9 #### BEVERLEY Poe ([id number]) [facility] ([facility]) [address] [place] [address] 62170 Sodium [Moles/Vol] 145 mmol/L Normal 136-145 [facility] Comment on above: Performed By: #### 1 9123-9 #### BEVERLEY Poe ([id number]) [facility] ([facility]) [address] [place] [address] 01524 Urea nitrogen [Mass/Vol] 12 mg/dL Normal 6-23 [facility] Comment on above: Performed By: #### 1 9123-9 #### BEVERLEY Poe ([id number]) [facility] ([facility]) [address] [place] [address] 20832 Bacteria identifiedon 2022 Bacteria identified Cx Nom (Bld) Test: Blood Culture Specimen Source: Peripheral Venipuncture Specimen Type: Blood culture Specimen Date: 09/15/2023 9:24 PM Result Date: 09/19/2023 10:01 PM Result Status: Final result Abnormal: No Resulting Lab: [facility] [address] [place] [address] 05491 CULTURE No growth at 4 days - FINAL REPORT [facility] Comment on above: Performed By: #### 6 00-7 #### BEVERLEY Poe ([id number]) [facility] ([facility]) [address] [place] [address] 93907 Basophil percentageOrdered B y: Calvin Hester on 09-15-2023 Lactate [Moles/Vol] 0.6 mmol/L 0.4-2.0 [facility] Basophil percentage 10-25 SEEN /hpf 0-5 [facility] Bilirubin Test strip Ql (U)O rdered By: Calvin Hester on 09-15-2023 Bilirubin Ql (U) Negative Negative [facility] Blood type and Indirect anti body screen panel (Bld)on 09-15-2023 ABO group Nom (Bld) O Normal [facility] Comment on above: Performed By: #### 3 4532-2 #### BEVERLEY Poe ([id number]) [facility] ([facility]) [address] [place], [place] [id number] Blood group antibody screen Ql Negative [facility] Comment on above: Performed By: #### 3 4532-2 #### BEVERLEY Poe ([id number]) [facility] ([facility]) [address] [place], [place] [phone] D Ag Ql (Bld) Positive [facility] Comment on above: Result Comment: 2nd ABO test required. Order and Collect VERAB Performed By: #### 3 4532-2 #### BEVERLEY Peo ([id number]) [facility] ([facility]) [address] [place] [address] 59661 CBC W Auto Differential pane l (Bld)on 09-15-2023 Basophils (Bld) [#/Vol] 0.01 10*3/uL [facility] Basophils/100 WBC (Bld) 0.3 % 0.0 - 2.0 % [facility] Eosinophils (Bld) [#/Vol] 0.06 10*3/uL [facility] Eosinophils/100 WBC (Bld) 1.7 % 0.0 - 6.0 % [facility] Erythrocyte distribution width (RBC) [Ratio] 13.9 % 11.5 - 14.5 % [facility] Hematocrit (Bld) [Volume fraction] 27.8 % Low 36.0 - 46.0 % [facility] Hemoglobin (Bld) [Mass/Vol] 7.9 g/dL Low 12.0 - 16.0 g/dL [facility] Immature granulocytes (Bld) [#/Vol] 0.02 10*3/uL [facility] Immature granulocytes/100 WBC (Bld) 0.6 % 0.0 - 0.9 % [facility] Interpretation and review of laboratory results Abnormal [facility] Lymphocytes (Bld) [#/Vol] 0.67 10*3/uL Low [facility] Lymphocytes/100 WBC (Bld) 19.2 % 13.0 - 44.0 % [facility] MCH (RBC) [Entitic mass] 29.8 pg 26.0 - 34.0 pg [facility] MCHC (RBC) [Mass/Vol] 28.4 g/dL Low 32.0 - 36.0 g/dL [facility] MCV (RBC) [Entitic vol] 105 fL High 80 - 100 fL [facility] Monocytes (Bld) [#/Vol] 0.23 10*3/uL [facility] Monocytes/100 WBC (Bld) 6.6 % 2.0 - 10.0 % [facility] Neutrophils (Bld) [#/Vol] 2.50 10*3/uL [facility] Neutrophils/100 WBC (Bld) 71.6 % 40.0 - 80.0 % [facility] Nucleated RBC/100 WBC (Bld) [Ratio] 0.0 % [facility] Platelets (Bld) [#/Vol] 123 10*3/uL Low [facility] RBC (Bld) [#/Vol] 2.65 10*6/uL [facility] WBC (Bld) [#/Vol] 3.5 10*3/uL [facility] Basophils (Bld) [#/Vol] 0.01 x10*3/uL Normal 0.00-0.10 [facility] Comment on above: Performed By: #### 5 7021-8 #### BEVERLEY Poe ([id number]) [facility] ([facility]) [address] [place] [address] 12848 Basophils/100 WBC (Bld) 0.3 % Normal 0.0-2.0 [facility] Comment on above: Performed By: #### 5 7021-8 #### BEVERLEY Poe ([id number]) [facility] ([facility]) [address] [place] [address] 60805 Eosinophils (Bld) [#/Vol] 0.06 x10*3/uL Normal 0.00-0.40 [facility] Comment on above: Performed By: #### 5 7021-8 #### BEVERLEY Poe ([id number]) [facility] ([facility]) [address] [place] [address] 66978 Eosinophils/100 WBC (Bld) 1.7 % Normal 0.0-6.0 [facility] Comment on above: Performed By: #### 5 7021-8 #### BEVERLEY Poe ([id number]) [facility] ([facility]) [address] [place] [address] 92447 Erythrocyte distribution width (RBC) [Ratio] 13.9 % Normal 11.5-14.5 [facility] Comment on above: Performed By: #### 5 7021-8 #### BEVERLEY Poe ([id number]) [facility] ([facility]) [address] [place] [address] 40155 Hematocrit (Bld) [Volume fraction] 27.8 % Low 36.0-46.0 [facility] Comment on above: Performed By: #### 5 7021-8 #### BEVERLEY Poe ([id number]) [facility] ([facility]) [address] [place] [address] 33469 Hemoglobin (Bld) [Mass/Vol] 7.9 g/dL Low 12.0-16.0 [facility] Comment on above: Performed By: #### 5 7021-8 #### BEVERLEY Poe ([id number]) [facility] ([facility]) [address] [place] [address] 94838 Immature granulocytes (Bld) [#/Vol] 0.02 x10*3/uL Normal 0.00-0.50 [facility] Comment on above: Performed By: #### 5 7021-8 #### BEVERLEY Poe ([id number]) [facility] ([facility]) [address] [place] [address] 28723 Immature granulocytes/100 WBC (Bld) 0.6 % Normal 0.0-0.9 [facility] Comment on above: Result Comment: Sharda ture Granulocyte Count (IG) includes promyelocytes, myelocytes and metamyelocytes but does not include bands. Percent differential counts (%) should be interpreted in the context of the absolute cell counts (cells/UL). Performed By: #### 5 7021-8 #### BEVERLEY Poe ([id number]) [facility] ([facility]) [address] [place] [address] 83417 Lymphocytes (Bld) [#/Vol] 0.67 x10*3/uL Low 0.80-3.00 [facility] Comment on above: Performed By: #### 5 7021-8 #### BEVERLEY Poe ([id number]) [facility] ([facility]) [address] [place] [address] 53099 Lymphocytes/100 WBC (Bld) 19.2 % Normal 13.0-44.0 [facility] Comment on above: Performed By: #### 5 7021-8 #### BEVERLEY Poe ([id number]) [facility] ([facility]) [address] [place] [address] 97882 MCH (RBC) [Entitic mass] 29.8 pg Normal 26.0-34.0 [facility] Comment on above: Performed By: #### 5 7021-8 #### BEVERLEY Poe ([id number]) [facility] ([facility]) [address] [place] [address] 95753 MCHC (RBC) [Mass/Vol] 28.4 g/dL Low 32.0-36.0 [facility] Comment on above: Performed By: #### 5 7021-8 #### BEVERLEY Poe ([id number]) [facility] ([facility]) [address] [place] [address] MCV (RBC) [Entitic vol] 105 fL High 80-100 [facility] Comment on above: Performed By: #### 5 7021-8 #### BEVERLEY Poe ([id number]) [facility] ([facility]) [id number] [place] [address] 22156 Monocytes (Bld) [#/Vol] 0.23 x10*3/uL Normal 0.05-0.80 [facility] Comment on above: Performed By: #### 5 7021-8 #### BEVERLEY Poe ([id number]) [facility] ([facility]) [address] [place] [address] 78063 Monocytes/100 WBC (Bld) 6.6 % Normal 2.0-10.0 [facility] Comment on above: Performed By: #### 5 7021-8 #### BEVERLEY Poe ([id number]) [facility] ([facility]) [address] [place] [address] 89691 Neutrophils (Bld) [#/Vol] 2.50 x10*3/uL Normal 1.60-5.50 [facility] Comment on above: Result Comment: Perc ent differential counts (%) should be interpreted in the context of the absolute cell counts (cells/uL). Performed By: #### 5 7021-8 #### BEVERLEY Poe ([id number]) [facility] ([facility]) [address] [place] [address] 68988 Neutrophils/100 WBC (Bld) 71.6 % Normal 40.0-80.0 [facility] Comment on above: Performed By: #### 5 7021-8 #### BEVERLEY Poe ([id number]) [facility] ([facility]) [address] [place] [address] Nucleated RBC/100 WBC (Bld) [Ratio] 0.0 /100 WBCs Normal 0.0-0.0 [facility] Comment on above: Performed By: #### 5 7021-8 #### BEVERLEY Poe ([id number]) [facility] ([facility]) [address] [place] [address] Platelets (Bld) [#/Vol] 123 x10*3/uL Low 150-450 [facility] Comment on above: Performed By: #### 5 7021-8 #### BEVERLEY Poe ([id number]) [facility] ([facility]) [address] [place] [address] RBC (Bld) [#/Vol] 2.65 x10*6/uL Low 4.00-5.20 [facility] Comment on above: Performed By: #### 5 7021-8 #### BEVERLEY Poe ([id number]) [facility] ([facility]) [address] [place] [address] WBC (Bld) [#/Vol] 3.5 x10*3/uL Low 4.4-11.3 [facility] Comment on above: Performed By: #### 5 7021-8 #### BEVERLEY Poe ([id number]) [facility] ([facility]) [address] [place] [address] Comprehensive metabolic 2000 panelon 09-15-2023 Albumin BCP dye [Mass/Vol] 3.0 g/dL Low 3.4 - 5.0 g/dL [facility] ALP [Catalytic activity/Vol] 47 U/L 33 - 136 U/L [facility] ALT With P-5'-P [Catalytic activity/Vol] 10 U/L 7 - 45 U/L [facility] Anion gap [Moles/Vol] 10 mmol/L 10 - 2 0 mmol/L [facility] AST With P-5'-P [Catalytic activity/Vol] 10 U/L 9 - 39 U/L [facility] Bilirubin [Mass/Vol] 0.6 mg/dL 0.0 - 1 .2 mg/dL [facility] Calcium [Mass/Vol] 8.8 mg/dL 8.6 - 10. 6 mg/dL [facility] Chloride [Moles/Vol] 100 mmol/L 98 - 10 7 mmol/L [facility] CO2 [Moles/Vol] 39 mmol/L High 21 - 32 mmol/L [facility] Creatinine [Mass/Vol] 0.45 mg/dL Low 0.50 - 1.05 mg/dL [facility] GFR/1.73 sq M.predicted MDRD (S/P/Bld) [Vol rate/Area] - PINF [facility] Glucose [Mass/Vol] 88 mg/dL 74 - 99 mg/dL [facility] Interpretation and review of laboratory results Abnormal [facility] Potassium [Moles/Vol] 4.2 mmol/L 3.5 - 5.3 mmol/L [facility] Protein [Mass/Vol] 6.1 g/dL Low 6.4 - 8.2 g/dL [facility] Sodium [Moles/Vol] 145 mmol/L 136 - 145 mmol/L [facility] Urea nitrogen [Mass/Vol] 13 mg/dL 6 - 23 mg/dL [facility] Albumin BCP dye [Mass/Vol] 3.0 g/dL Low 3.4-5.0 [facility] Comment on above: Performed By: #### 2 4323-8 #### BEVERLEY Poe ([id number]) [facility] ([facility]) [id number] [place] [address] 05218 ALP [Catalytic activity/Vol] 47 U/L Normal 33-136 [facility] Comment on above: Performed By: #### 2 4323-8 #### BEVERLEY Poe ([id number]) [facility] ([facility]) [address] [place] [address] 97832 ALT With P-5'-P [Catalytic activity/Vol] 10 U/L Normal 7-45 [facility] Comment on above: Result Comment: Ирина ents treated with Sulfasalazine may generate falsely decreased results for ALT. Performed By: #### 2 4323-8 #### BEVERLEY Poe ([id number]) [facility] ([facility]) [address] [place] [address] Anion gap [Moles/Vol] 10 mmol/L Normal 10-20 [facility] Comment on above: Performed By: #### 2 4323-8 #### BEVERLEY Poe ([id number]) [facility] ([facility]) [address] [place] [address] AST With P-5'-P [Catalytic activity/Vol] 10 U/L Normal 9-39 [facility] Comment on above: Performed By: #### 2 4323-8 #### BEVERLEY Poe ([id number]) [facility] ([facility]) [address] [place] [address] 33655 Bilirubin [Mass/Vol] 0.6 mg/dL Normal 0.0-1.2 [facility] Comment on above: Performed By: #### 2 4323-8 #### BEVERLEY Poe ([id number]) [facility] ([facility]) [address] [place] [address] 64170 Calcium [Mass/Vol] 8.8 mg/dL Normal 8.6-10.6 [facility] Comment on above: Performed By: #### 2 4323-8 #### BEVERLEY Poe ([id number]) [facility] ([facility]) [address] [place] [address] 59370 Chloride [Moles/Vol] 100 mmol/L Normal 98-107 [facility] Comment on above: Performed By: #### 2 4323-8 #### BEVERLEY DODD L ([id number]) [facility] ([facility]) [address] [place] [address] 17422 CO2 [Moles/Vol] 39 mmol/L High 21-32 [facility] Comment on above: Performed By: #### 2 4323-8 #### BEVERLEY DODD L ([id number]) [facility] ([facility]) [address] [place] [address] 08962 Creatinine [Mass/Vol] 0.45 mg/dL Low 0.50-1.05 [facility] Comment on above: Performed By: #### 2 4323-8 #### BEVERLEY DODD L ([id number]) [facility] ([facility]) [address] [place] [address] GFR/1.73 sq M.predicted MDRD (S/P/Bld) [Vol rate/Area] mL/min/{1.73_m2} Normal >60 [facility] Comment on above: Result Comment: Calc ulations of estimated GFR are performed using the 2020 CKD-EPI Study Refit equation without the race variable for the IDMS-Traceable creatinine methods. https://jasn.asnjournals.org/content/early//ASN.42412 05319 Performed By: #### 2 4323-8 #### BEVERLEY Poe ([id number]) [facility] ([facility]) [address] [place] [address] 31348 Glucose [Mass/Vol] 88 mg/dL Normal 74-99 [facility] Comment on above: Performed By: #### 2 4323-8 #### BEVERLEY DODD L ([id number]) [facility] ([facility]) [address] [place] [address] 50475 Potassium [Moles/Vol] 4.2 mmol/L Normal 3.5-5.3 [facility] Comment on above: Performed By: #### 2 4323-8 #### BEVERLEY DODD L ([id number]) [facility] ([facility]) [address] [place] [address] Protein [Mass/Vol] 6.1 g/dL Low 6.4-8.2 [facility] Comment on above: Performed By: #### 2 4323-8 #### BEVERLEY DODD L ([id number]) [facility] ([facility]) [address] [place] [address] 12807 Sodium [Moles/Vol] 145 mmol/L Normal 136-145 [facility] Comment on above: Performed By: #### 2 4323-8 #### BEVERLEY DODD L ([id number]) [facility] ([facility]) [address] [place] [address] 98480 Urea nitrogen [Mass/Vol] 13 mg/dL Normal 6-23 [facility] Comment on above: Performed By: #### 2 4323-8 #### BEVERLEY Poe ([id number]) [facility] ([facility]) [id number] [place] [address] 37818 Glucose Glucometer (BldC) [M ass/Vol]Ordered By: Calvin Hester on 09-15-2023 Glucose [Mass/Vol] 95 mg/dL 74-106 [facility] Comment on above: MANAGEMENT OF PATIEN T CARE PER NURSING PROTOCOL Ketones Test strip Ql (U)Ord ered By: Calvin Hester on 09-15-2023 Ketones Ql (U) Negative Negative [facility] - Microbiology an d Antimicrobial susceptibilityOrdered By: Calvin Hester on 09-15-2023 Bacteria identified Cx Nom (Bld) No growth in 5 days. [facility] Magnesiumon 09-15-2023 Magnesium [Mass/Vol] 2.13 mg/dL 1.60 - 2.40 mg/dL [facility] Magnesium [Mass/Vol] 2.13 mg/dL Normal 1.60-2.40 [facility] Comment on above: Performed By: #### 1 9123-9 #### BEVERLEY Poe ([id number]) [facility] ([facility]) [address] [place] [address] 45018 Magnesium [Mass/Vol]on 09-15 Interpretation and review of laboratory results Normal [facility] Mucus LM Ql (Urine sed)Order ed By: Calvin Hester on 09-15-2023 Mucus Ql (Urine sed) 0 SEEN /hpf [facility] Nitrite Test strip Ql (U)Ord ered By: Calvin Hester on 09-15-2023 Nitrite Ql (U) Positive Negative [facility] No Panel Informationon 09-15 [facility] PT and aPTT panel Coag (PPP) on 09-15-2023 aPTT Coag (PPP) [Time] 24 s Low Un [facility] INR Coag (PPP) [Relative time] 1.0 {INR} 0.9 - 1.1 [facility] Interpretation and review of laboratory results Abnormal [facility] PT Coag (PPP) [Time] 11.6 s [facility] aPTT Coag (PPP) [Time] 24 s Low 27-[address] [facility] Comment on above: Order Comment: The A PTT is no longer used for monitoring Unfractionated Heparin Therapy. For monitoring Heparin Therapy, use the Heparin Assay. Performed By: #### 3 4529-8 #### BEVERLEY Poe ([id number]) [facility] ([facility]) [address] [place] [address] 20345 INR Coag (PPP) [Relative time] 1.0 Normal 0.9-1.1 [facility] Comment on above: Order Comment: The A PTT is no longer used for monitoring Unfractionated Heparin Therapy. For monitoring Heparin Therapy, use the Heparin Assay. Performed By: #### 3 4529-8 #### BEVERLEY Poe ([id number]) [facility] ([facility]) [address] [place] [address] 05024 PT Coag (PPP) [Time] 11.6 s Normal 9.8-12.8 [facility] Comment on above: Order Comment: The A PTT is no longer used for monitoring Unfractionated Heparin Therapy. For monitoring Heparin Therapy, use the Heparin Assay. Performed By: #### 3 4529-8 #### BEVERLEY Poe ([id number]) [facility] ([facility]) [address] [place] [address] 85260 Protein Test strip Ql (U)Ord ered By: Calvin Hester on 09-15-2023 Protein Ql (U) 30 mg/dl Negative [facility] Squamous epithelial cells de tection in urine sediment by light microscopyOrdered By: Calvin Hester on 09-15-2023 Epithelial cells.squamous LM Ql (Urine sed) 0 SEEN /hpf 5-10 [facility] Urine blood detectionOrdered By: Calvin Hester on 09-15-2023 RBC Ql (U) 50 /ul Negative [facility] RBC Ql (U) 0-5 SEEN /hpf 0-5 [facility] Urine clarityOrdered By: Farooq Hester on 09-15-2023 Clarity (U) Clear Clear [facility] Urine color determinationOrd ered By: Calvin Hester on 09-15-2023 Color (U) Yellow Yellow [facility] Urine glucose detectionOrder ed By: Calvin Hester on 09-15-2023 Glucose Ql (U) Normal mg/dl Normal [facility] Urine leukocyte esterase det ection by dipstickOrdered By: Calvin Hester on 09-15-2023 Leukocyte esterase Test strip Ql (U) 100 /ul Negative [facility] Urine pHOrdered By: Calvin solorzano on 09-15-2023 pH (U) 6.0 [pH] 5.0 - 8.0 [facility] Urine sediment bacteria coun t by microscopy (number/high power field)Ordered By: Calvin Hester on 09-15-2023 Bacteria LM.HPF (Urine sed) [#/Area] 1 /[HPF] None Seen [facility] Urine specific gravity measu rementOrdered By: Calvin Hester on 09-15-2023 Specific gravity (U) [Rel density] 1.010 1.002-1.030 [facility] Urobilinogen Auto test strip Ql (U)Ordered By: Calvin Hester on 09-15-2023 Urobilinogen Ql (U) 1 mg/dl Normal [facility] Absolute lymphocyte countOrd ered By: Calvin Hester on 09-14-2023 Lymphocytes Auto (Unsp spec) [#/Vol] 0.70 10*3/uL 0.83-4.51 [facility] Basophil percentageOrdered B y: Calvin Hester on 09-14-2023 Basophils/100 WBC (Bld) 0.3 % 0-1 [facility] Bilirubin [Mass/Vol] 0.40 mg/dL 0.20-1.00 [facility] Comment on above: For patients on eltr ombopag therapy, use of Dimension Simpson TBIL is not recommended. Chloride [Moles/Vol] 101 mmol/L 98-107 [facility] Eosinophils/100 WBC (Bld) 0.8 % 0-5 [facility] Glucose [Mass/Vol] 134 mg/dL 74-106 [facility] Comment on above: Fasting Glucose resu lt greater than or equal to 126 mg/dL suggests DIABETES MELLITUS per A.D.A. criteria. Neutrophils (Bld) [#/Vol] 2.5 10*3/uL 2.0-7.7 [facility] Neutrophils/100 WBC (Bld) 70.5 % 47-70 [facility] Potassium [Moles/Vol] 4.0 mmol/L 3.5-5.1 [facility] Protein [Mass/Vol] 6.9 g/dL 6.4-8.2 [facility] Sodium [Moles/Vol] 144 mmol/L 136-145 [facility] WBC (Bld) [#/Vol] 3.6 10*3/uL 4.4-11.0 [facility] Blood erythrocytes count (nu mber/volume)Ordered By: Calvin Hester on 09-14-2023 RBC (Bld) [#/Vol] 2.80 10*6/uL 4.2-5.4 [facility] Blood hemoglobin measurement (mass/volume)Ordered By: Calvin Hester on 09-14-2023 Hemoglobin (Bld) [Mass/Vol] 8.3 g/dL 12.0-15.0 [facility] Blood lymphocytes/100 leukoc ytesOrdered By: Calvin Hester on 09-14-2023 Lymphocytes/100 WBC (Bld) 19.5 % 19-41 [facility] Blood monocytes/100 leukocyt esOrdered By: Calvin Hester on 09-14-2023 Monocytes/100 WBC (Bld) 7.8 % 0-10 [facility] Blood platelet mean volumeOr dered By: Calvin Hester on 09-14-2023 Platelet mean volume (Bld) [Entitic vol] 8.8 fL 6.2-12.0 [facility] Determination of erythrocyte mean corpuscular volume (MCV)Ordered By: Calvin Hester on 09-14-2023 MCV (RBC) [Entitic vol] 102.9 fL 81-99 [facility] Direct bilirubinOrdered By: Calvin Hester on 09-14-2023 Bilirubin.direct [Mass/Vol] 0.09 mg/dL 0.00-0.30 [facility] Hematocrit Auto (Bld) [Volum e fraction]Ordered By: Calvin Hester on 09-14-2023 Hematocrit (Bld) [Volume fraction] 28.8 % 37-47 [facility] INR in Blood by Coagulation assayOrdered By: Calvin Hester on 09-14-2023 INR Coag (Bld) [Relative time] 1.0 {INR} [facility] - Chemistry and C hemistry - challengeOrdered By: Calvin Hester on 09-14-2023 ALP [Catalytic activity/Vol] 66 U/L 45-117 [facility] ALT [Catalytic activity/Vol] 18 U/L 13-56 [facility] CO2 [Moles/Vol] 41.0 mmol/L 21.0-32.0 [facility] Globulin (S) [Mass/Vol] 4.4 g/dL 2.2-4.2 [facility] Lipase [Catalytic activity/Vol] 24 U/L 13-75 [facility] Comment on above: Please note:LIPASE r evised reference range effective 23. New Lipase methodology. Expected to produce lower values than the previous assay method. NEW Reference Range: 13 - 75 U/L Urea nitrogen/Creatinine [Mass ratio] 25.5 mg/mg 10-20 [facility] - CoagulationOrde red By: Calvin Hester on 09-14-2023 aPTT Coag (Bld) [Time] 29.8 s 24.1-36.2 [facility] PT Coag (PPP) [Time] 13.0 s 11.7-14.9 [facility] - Hematology and Cell countsOrdered By: Calvin Hester on 09-14-2023 Erythrocyte distribution width (RBC) [Entitic vol] 53.0 fL 35.1-43.9 [facility] Erythrocyte distribution width (RBC) [Ratio] 14.1 % 11.6-14.6 [facility] Immature granulocytes/100 WBC (Bld) 1.100 % 0.0-0.9 [facility] Comment on above: IG% - Immature Granu locytes (promyelocytes, myelocytes and metamyelocytes) > 1% indicates that a LEFT SHIFT is Present. MCH (RBC) [Entitic mass] 29.6 pg 27.0-32.0 [facility] Nucleated RBC/100 WBC (Bld) [Ratio] 0 % 0-5 [facility] [Mass/Vol]Or dered By: Calvin Hester on 09-14-2023 MCHC (RBC) [Mass/Vol] 28.8 g/dL 32-36 [facility] No Panel InformationOrdered By: Calvin Hester on 09-14-2023 Estimated Creatinine Clearance Calc 54.98 ml/min [facility] Estimated GFR (MDRD) Amer 87 mL/min >60 [facility] Comment on above: GFR Calc Estimated GFR (MDRD) Non-Af Amer 72 mL/min >60 [facility] Comment on above: Non- GFR Calc Platelets bldOrdered By: Farooq Hester on 09-14-2023 Platelets (Bld) [#/Vol] 109 10*3/uL 150-450 [facility] Serum or plasma albumin celina urement (mass/volume)Ordered By: Calvin Hester on 09-14-2023 Albumin [Mass/Vol] 2.5 g/dL 3.2-5.0 [facility] Serum or plasma calcium celina urement (mass/volume)Ordered By: Calvin Hester on 09-14-2023 Calcium [Mass/Vol] 9.0 mg/dL 8.5-10.1 [facility] Serum or plasma creatinine m easurement (mass/volume)Ordered By: Calvin Hester on 09-14-2023 Creatinine [Mass/Vol] 0.82 mg/dL 0.55-1.02 [facility] Comment on above: The validity of the calculated GFR & GFRAA in patients over 70 years has not been determined. Clinical correlation is essential. Serum or plasma urea nitroge n measurement (mass/volume)Ordered By: Calvin Hester on 09-14-2023 Urea nitrogen [Mass/Vol] 21 mg/dL 7-18 [facility] Thin prep Papanicolaou smear with manual screeningOrdered By: Calvin Hester on 09-14-2023 Thin prep Papanicolaou smear with manual screening 10 U/L 15-37 [facility] Thin prep Papanicolaou smear with manual screening 2 5-15 [facility] Basophil percentageOrdered B y: Jonathan Dillard on 09-13-2023 Bilirubin [Mass/Vol] 0.30 mg/dL 0.20-1.00 [facility] Comment on above: For patients on eltr ombopag therapy, use of Dimension Simpson TBIL is not recommended. Chloride [Moles/Vol] 103 mmol/L 98-107 [facility] Glucose [Mass/Vol] 111 mg/dL 74-106 [facility] Comment on above: Fasting Glucose resu lt from 100 to 125 mg/dL suggests IMPAIRED HOMEOSTASIS per A.D.A. criteria. Potassium [Moles/Vol] 3.8 mmol/L 3.5-5.1 [facility] Protein [Mass/Vol] 6.6 g/dL 6.4-8.2 [facility] Sodium [Moles/Vol] 145 mmol/L 136-145 [facility] WBC (Bld) [#/Vol] 2.8 10*3/uL 4.4-11.0 [facility] Blood erythrocytes count (nu mber/volume)Ordered By: Jonathan Dillard on 09-13-2023 RBC (Bld) [#/Vol] 2.62 10*6/uL 4.2-5.4 [facility] Blood hemoglobin measurement (mass/volume)Ordered By: Jonathan Dillard on 09-13-2023 Hemoglobin (Bld) [Mass/Vol] 8.0 g/dL 12.0-15.0 [facility] Blood platelet mean volumeOr dered By: Jonathan Dillard on 09-13-2023 Platelet mean volume (Bld) [Entitic vol] 8.6 fL 6.2-12.0 [facility] Determination of erythrocyte mean corpuscular volume (MCV)Ordered By: Jonathan Dillard on 09-13-2023 MCV (RBC) [Entitic vol] 103.4 fL 81-99 [facility] Hematocrit Auto (Bld) [Volum e fraction]Ordered By: Jonathan Dillard on 09-13-2023 Hematocrit (Bld) [Volume fraction] 27.1 % 37-47 [facility] - Chemistry and C hemistry - challengeOrdered By: Jonathan Dillard on 09-13-2023 ALP [Catalytic activity/Vol] 58 U/L 45-117 [facility] ALT [Catalytic activity/Vol] 18 U/L 13-56 [facility] CO2 [Moles/Vol] 41.0 mmol/L 21.0-32.0 [facility] Globulin (S) [Mass/Vol] 4.2 g/dL 2.2-4.2 [facility] Urea nitrogen/Creatinine [Mass ratio] 34.5 mg/mg 10-20 [facility] - Hematology and Cell countsOrdered By: Jonathan Dillard on 09-13-2023 Erythrocyte distribution width (RBC) [Entitic vol] 54.3 fL 35.1-43.9 [facility] Erythrocyte distribution width (RBC) [Ratio] 14.4 % 11.6-14.6 [facility] MCH (RBC) [Entitic mass] 30.5 pg 27.0-32.0 [facility] MCHC Auto (RBC) [Mass/Vol]Or dered By: Jonathan Dillard on 09-13-2023 MCHC (RBC) [Mass/Vol] 29.5 g/dL 32-36 [facility] Comment on above: Delta: 27.9 on 09/08 No Panel InformationOrdered By: Jonathan Dillard on 09-13-2023 Estimated GFR (MDRD) Amer 148 mL/min >60 [facility] Comment on above: GFR Calc Estimated GFR (MDRD) Non-Af Amer 122 mL/min >60 [facility] Comment on above: Non- GFR Calc Platelets bldOrdered By: Mervat Dillard on 09-13-2023 Platelets (Bld) [#/Vol] 103 10*3/uL 150-450 [facility] Serum or plasma albumin celina urement (mass/volume)Ordered By: Jonathan Dillard on 09-13-2023 Albumin [Mass/Vol] 2.4 g/dL 3.2-5.0 [facility] Serum or plasma albumin/glob ulin mass ratioOrdered By: Jonathan Dillard on 09-13-2023 Albumin/Globulin [Mass ratio] 0.6 {ratio} 0.9-2.4 [facility] Serum or plasma calcium celina urement (mass/volume)Ordered By: Jonathan Dillard on 09-13-2023 Calcium [Mass/Vol] 8.7 mg/dL 8.5-10.1 [facility] Serum or plasma creatinine m easurement (mass/volume)Ordered By: Jonathan Dillard on 09-13-2023 Creatinine [Mass/Vol] 0.52 mg/dL 0.55-1.02 [facility] Comment on above: The validity of the calculated GFR & GFRAA in patients over 70 years has not been determined. Clinical correlation is essential. Serum or plasma urea nitroge n measurement (mass/volume)Ordered By: Jonathan Dillard on 09-13-2023 Urea nitrogen [Mass/Vol] 18 mg/dL 7-18 [facility] Thin prep Papanicolaou smear with manual screeningOrdered By: Jonathan Dillard on 09-13-2023 Thin prep Papanicolaou smear with manual screening 11 U/L 15-37 [facility] Thin prep Papanicolaou smear with manual screening 1 5-15 [facility] Culture, urineOrdered By: Chloe Jeffries on 09-09-2023 Bacteria identified Cx Nom (U) Mixed Gram Pos & Gram Neg Org [facility] Cytology report of Body flui d Cyto stainOrdered By: Alecia Navarrete on 09-09-2023 Cytology report Cyto stain Doc (Body fld) SEE PATHOLOGY REPORT [facility] Comment on above: Specimen submitted t o Anatomical Pathology Department for testing. Absolute lymphocyte countOrd ered By: Delfin Jeffries on 09-08-2023 Lymphocytes Auto (Unsp spec) [#/Vol] 0.60 10*3/uL 0.83-4.51 [facility] Basophil percentageOrdered B y: Delfin Jeffries on 09-08-2023 Basophil percentage >100 SEEN /hpf 0-5 [facility] Comment on above: Microscopic field is filled. Other elements may be obscured. Basophil percentage 3.4 mg/dL 2.5-4.9 [facility] Basophils/100 WBC (Bld) 0.2 % 0-1 [facility] Bilirubin [Mass/Vol] 0.40 mg/dL 0.20-1.00 [facility] Comment on above: For patients on eltr ombopag therapy, use of Dimension Simpson TBIL is not recommended. Chloride [Moles/Vol] 104 mmol/L 98-107 [facility] Eosinophils/100 WBC (Bld) 0.7 % 0-5 [facility] Glucose [Mass/Vol] 163 mg/dL 74-106 [facility] Comment on above: Fasting Glucose resu lt greater than or equal to 126 mg/dL suggests DIABETES MELLITUS per A.D.A. criteria. Neutrophils (Bld) [#/Vol] 3.5 10*3/uL 2.0-7.7 [facility] Neutrophils/100 WBC (Bld) 78.8 % 47-70 [facility] Potassium [Moles/Vol] 3.8 mmol/L 3.5-5.1 [facility] Protein [Mass/Vol] 7.1 g/dL 6.4-8.2 [facility] Sodium [Moles/Vol] 143 mmol/L 136-145 [facility] WBC (Bld) [#/Vol] 4.5 10*3/uL 4.4-11.0 [facility] Bilirubin Test strip Ql (U)O rdered By: Delfin Jeffries on 09-08-2023 Bilirubin Ql (U) Negative Negative [facility] Blood erythrocytes count (nu mber/volume)Ordered By: Delfin Jeffries on 09-08-2023 RBC (Bld) [#/Vol] 3.10 10*6/uL 4.2-5.4 [facility] Blood hemoglobin measurement (mass/volume)Ordered By: Delfin Jeffries on 09-08-2023 Hemoglobin (Bld) [Mass/Vol] 9.0 g/dL 12.0-15.0 [facility] Blood lymphocytes/100 leukoc ytesOrdered By: Delfin Jeffries on 09-08-2023 Lymphocytes/100 WBC (Bld) 13.4 % 19-41 [facility] Blood manual differential co mment interpretation (narrative result)Ordered By: Delfin Jeffries on 09-08-2023 Manual differential comment Ajit (Bld) [Interp] SCANNED [facility] Blood monocytes/100 leukocyt esOrdered By: Delfin Jeffries on 09-08-2023 Monocytes/100 WBC (Bld) 6.5 % 0-10 [facility] Blood platelet mean volumeOr dered By: Delfin Jeffries on 09-08-2023 Platelet mean volume (Bld) [Entitic vol] 8.1 fL 6.2-12.0 [facility] Culture, urineOrdered By: Chloe Jeffries on 09-08-2023 Bacteria identified Cx Nom (U) Mixed Gram Pos & Gram Neg Org [facility] Determination of erythrocyte mean corpuscular volume (MCV)Ordered By: Delfin Jeffries on 09-08-2023 MCV (RBC) [Entitic vol] 104.2 fL 81-99 [facility] Erythrocyte sedimentation ra teOrdered By: Delfin Jeffries on 09-08-2023 ESR (Bld) [Velocity] 43 mm/h 0-30 [facility] Hematocrit Auto (Bld) [Volum e fraction]Ordered By: Delfin Jeffries on 09-08-2023 Hematocrit (Bld) [Volume fraction] 32.3 % 37-47 [facility] Hemoglobin in reticulocytes (mass per reticulocyte)Ordered By: Delfin Jeffries on 09-08-2023 Hemoglobin (Reticulocytes) [Entitic mass] 26.4 pg 30-35 [facility] Iron measurement (mass/mass) Ordered By: Delfin Jeffries on 09-08-2023 Iron (Unsp spec) [Mass/Mass] 32 ug/dL 50-170 [facility] Ketones Test strip Ql (U)Ord ered By: Delfin Jeffries on 09-08-2023 Ketones Ql (U) 5 mg/dl Negative [facility] Laboratory - Chemistry and C hemistry - challengeOrdered By: Delfin Jeffries on 09-08-2023 ALP [Catalytic activity/Vol] 69 U/L 45-117 [facility] ALT [Catalytic activity/Vol] 17 U/L 13-56 [facility] CO2 [Moles/Vol] 38.0 mmol/L 21.0-32.0 [facility] Cobalamin (Vitamin B12) [Mass/Vol] 1331 pg/mL 211-911 [facility] Globulin (S) [Mass/Vol] 4.5 g/dL 2.2-4.2 [facility] Magnesium [Mass/Vol] 2.1 mg/dL 1.6-2.6 [facility] Urea nitrogen/Creatinine [Mass ratio] 31.6 mg/mg 10-20 [facility] - Hematology and Cell countsOrdered By: Delfin Jeffries on 09-08-2023 Erythrocyte distribution width (RBC) [Entitic vol] 55.1 fL 35.1-43.9 [facility] Erythrocyte distribution width (RBC) [Ratio] 14.6 % 11.6-14.6 [facility] Immature granulocytes/100 WBC (Bld) 0.400 % 0.0-0.9 [facility] Comment on above: IG% - Immature Granu locytes (promyelocytes, myelocytes and metamyelocytes) > 1% indicates that a LEFT SHIFT is Present. MCH (RBC) [Entitic mass] 29.0 pg 27.0-32.0 [facility] Nucleated RBC/100 WBC (Bld) [Ratio] 0 % 0-5 [facility] MCHC Auto (RBC) [Mass/Vol]Or dered By: Delfin Jeffries on 09-08-2023 MCHC (RBC) [Mass/Vol] 27.9 g/dL 32-36 [facility] Mucus LM Ql (Urine sed)Order ed By: Delfin Jeffries on 09-08-2023 Mucus Ql (Urine sed) 0 SEEN /hpf [facility] Nitrite Test strip Ql (U)Ord ered By: Delfin Jeffries on 09-08-2023 Nitrite Ql (U) Negative Negative [facility] No Panel InformationOrdered By: Delfin Jeffries on 09-08-2023 Estimated Creatinine Clearance Calc 43.27 ml/min [facility] Estimated GFR (MDRD) Amer 118 mL/min >60 [facility] Comment on above: GFR Calc Estimated GFR (MDRD) Non-Af Amer 98 mL/min >60 [facility] Comment on above: Non- GFR Calc Immature Reticulocyte Fraction 17.60 % 3.00-15.90 [facility] Reticulocyte Count 2.46 % 0.5-1.5 [facility] Total Iron Binding Capacity 216 ug/dL 250-450 [facility] Platelets bldOrdered By: Luciano Jeffries on 09-08-2023 Platelets (Bld) [#/Vol] 113 10*3/uL 150-450 [facility] Protein Test strip Ql (U)Ord ered By: Delfin Jeffries on 09-08-2023 Protein Ql (U) 500 mg/dl Negative [facility] Serum or plasma C reactive p rotein measurement (mass/volume)Ordered By: Delfin Benson on 09-08-2023 CRP [Mass/Vol] 81.40 mg/L 0.0-3.0 [facility] Comment on above: C-Reactive Protein ( CRP) provides useful information for thediagnosis, therapy and monitoring of inflammatory processesand associated diseases. For the evaluation of Relative Riskfor Cardiovascular Disease, a High Sensitivity CRP (HSCRP)should be ordered. Serum or plasma albumin celina urement (mass/volume)Ordered By: Delfin Jeffries on 09-08-2023 Albumin [Mass/Vol] 2.6 g/dL 3.2-5.0 [facility] Serum or plasma albumin/glob ulin mass ratioOrdered By: Delfin Jeffries on 09-08-2023 Albumin/Globulin [Mass ratio] 0.6 {ratio} 0.9-2.4 [facility] Serum or plasma calcium celina urement (mass/volume)Ordered By: Delfin Benson on 09-08-2023 Calcium [Mass/Vol] 8.7 mg/dL 8.5-10.1 [facility] Serum or plasma creatinine m easurement (mass/volume)Ordered By: Delfin Benson on 09-08-2023 Creatinine [Mass/Vol] 0.63 mg/dL 0.55-1.02 [facility] Comment on above: The validity of the calculated GFR & GFRAA in patients over 70 years has not been determined. Clinical correlation is essential. Serum or plasma ferritin carter surement (mass/volume)Ordered By: Delfin Jeffries on 09-08-2023 Ferritin [Mass/Vol] 243 ng/mL 8-252 [facility] Serum or plasma folate measu rement (mass/volume)Ordered By: Delfin Jeffries on 09-08-2023 Folate [Mass/Vol] 84.50 ng/mL 3.1-55.4 [facility] Serum or plasma iron saturat ion measurement (mass fraction)Ordered By: Delfin Jeffries on 09-08-2023 Iron saturation [Mass fraction] 14.8 % 15.0-55.0 [facility] Serum or plasma urea nitroge n measurement (mass/volume)Ordered By: Delfni Jeffries on 09-08-2023 Urea nitrogen [Mass/Vol] 20 mg/dL 7-18 [facility] Squamous epithelial cells de tection in urine sediment by light microscopyOrdered By: Delfin Jeffries on 09-08-2023 Epithelial cells.squamous LM Ql (Urine sed) 0 SEEN /hpf 5-10 [facility] Thin prep Papanicolaou smear with manual screeningOrdered By: Delfin Jeffries on 09-08-2023 Thin prep Papanicolaou smear with manual screening 15 U/L 15-37 [facility] Thin prep Papanicolaou smear with manual screening 1 5-15 [facility] Urine blood detectionOrdered By: Delfin Jeffries on 09-08-2023 RBC Ql (U) 250 /ul Negative [facility] RBC Ql (U) > 100 SEEN /hpf 0-5 [facility] Comment on above: Microscopic field is filled. Other elements may be obscured. Urine clarityOrdered By: Luciano Jeffries on 09-08-2023 Clarity (U) Cloudy Clear [facility] Urine color determinationOrd ered By: Delfin Jeffries on 09-08-2023 Color (U) Brown Yellow [facility] Urine glucose detectionOrder ed By: Deflin Jeffries on 09-08-2023 Glucose Ql (U) Normal mg/dl Normal [facility] Urine leukocyte esterase det ection by dipstickOrdered By: Delfin Jeffries on 09-08-2023 Leukocyte esterase Test strip Ql (U) 100 /ul Negative [facility] Urine pHOrdered By: Delfin elizabeth on 09-08-2023 pH (U) 5.0 [pH] 5.0 - 8.0 [facility] Urine sediment bacteria coun t by microscopy (number/high power field)Ordered By: Delfin Jeffries on 09-08-2023 Bacteria LM.HPF (Urine sed) [#/Area] 0 /[HPF] None Seen [facility] Urine specific gravity measu rementOrdered By: Delfin Jeffries on 09-08-2023 Specific gravity (U) [Rel density] 1.020 1.002-1.030 [facility] Urobilinogen Auto test strip Ql (U)Ordered By: Delfin Jeffries on 09-08-2023 Urobilinogen Ql (U) Normal mg/dl Normal [facility] Basophil percentageOrdered B y: Jonathan Dillard on 08-31-2023 Basophil percentage >100 SEEN /hpf 0-5 [facility] Chloride [Moles/Vol] 104 mmol/L 98-107 [facility] Glucose [Mass/Vol] 110 mg/dL 74-106 [facility] Comment on above: Fasting Glucose resu lt from 100 to 125 mg/dL suggests IMPAIRED HOMEOSTASIS per A.D.A. criteria. Potassium [Moles/Vol] 3.9 mmol/L 3.5-5.1 [facility] Sodium [Moles/Vol] 146 mmol/L 136-145 [facility] WBC (Bld) [#/Vol] 3.7 10*3/uL 4.4-11.0 [facility] Bilirubin Test strip Ql (U)O rdered By: Jonathan Dillard on 08-31-2023 Bilirubin Ql (U) Negative Negative [facility] Blood erythrocytes count (nu mber/volume)Ordered By: Jonathan Dillard on 08-31-2023 RBC (Bld) [#/Vol] 2.85 10*6/uL 4.2-5.4 [facility] Blood hemoglobin measurement (mass/volume)Ordered By: Jonathan Dillard on 08-31-2023 Hemoglobin (Bld) [Mass/Vol] 8.5 g/dL 12.0-15.0 [facility] Blood manual differential co mment interpretation (narrative result)Ordered By: Jonathan Dillard on 08-31-2023 Manual differential comment Ajit (Bld) [Interp] COMMENT [facility] Comment on above: PLT POPULATION - MOD ERATELY DECREASED. Blood platelet mean volumeOr dered By: Jonathan Dillard on 08-31-2023 Platelet mean volume (Bld) [Entitic vol] 9.6 fL 6.2-12.0 [facility] Culture, urineOrdered By: Higuera on 08-31-2023 Bacteria identified Cx Nom (U) Mixed Gram Pos & Gram Neg Org [facility] Determination of erythrocyte mean corpuscular volume (MCV)Ordered By: Jonathan Dillard on 08-31-2023 MCV (RBC) [Entitic vol] 102.8 fL 81-99 [facility] Hematocrit Auto (Bld) [Volum e fraction]Ordered By: Jonathan Dillard on 08-31-2023 Hematocrit (Bld) [Volume fraction] 29.3 % 37-47 [facility] Ketones Test strip Ql (U)Ord ered By: Jonathan Dillard on 08-31-2023 Ketones Ql (U) Negative Negative [facility] Laboratory - Chemistry and C hemistry - challengeOrdered By: Jonathan Dillard on 08-31-2023 CO2 [Moles/Vol] 39.0 mmol/L 21.0-32.0 [facility] Urea nitrogen/Creatinine [Mass ratio] 37.5 mg/mg 10-20 [facility] - Hematology and Cell countsOrdered By: Jonathan Dillard on 08-31-2023 Erythrocyte distribution width (RBC) [Entitic vol] 54.3 fL 35.1-43.9 [facility] Erythrocyte distribution width (RBC) [Ratio] 14.4 % 11.6-14.6 [facility] MCH (RBC) [Entitic mass] 29.8 pg 27.0-32.0 [facility] MCHC Auto (RBC) [Mass/Vol]Or dered By: Jonathan Dillard on 08-31-2023 MCHC (RBC) [Mass/Vol] 29.0 g/dL 32-36 [facility] Mucus LM Ql (Urine sed)Order ed By: Jonathan Dillard on 08-31-2023 Mucus Ql (Urine sed) 0 SEEN /hpf [facility] Nitrite Test strip Ql (U)Ord ered By: Jonathan Dillard on 08-31-2023 Nitrite Ql (U) Negative Negative [facility] No Panel InformationOrdered By: Jonathan Dillard on 08-31-2023 Estimated GFR (MDRD) Amer 153 mL/min >60 [facility] Comment on above: GFR Calc Estimated GFR (MDRD) Non-Af Amer 127 mL/min >60 [facility] Comment on above: Non- GFR Calc Platelets bldOrdered By: Mervat Dillard on 08-31-2023 Platelets (Bld) [#/Vol] 96 10*3/uL 150-450 [facility] Protein Test strip Ql (U)Ord ered By: Jonathan Dillard on 08-31-2023 Protein Ql (U) 100 mg/dl Negative [facility] Serum or plasma calcium celina urement (mass/volume)Ordered By: Jonathan Dillard on 08-31-2023 Calcium [Mass/Vol] 9.5 mg/dL 8.5-10.1 [facility] Serum or plasma creatinine m easurement (mass/volume)Ordered By: Jonathan Dillard on 08-31-2023 Creatinine [Mass/Vol] 0.51 mg/dL 0.55-1.02 [facility] Comment on above: The validity of the calculated GFR & GFRAA in patients over 70 years has not been determined. Clinical correlation is essential. Serum or plasma urea nitroge n measurement (mass/volume)Ordered By: Jonathan Dillard on 08-31-2023 Urea nitrogen [Mass/Vol] 19 mg/dL - [facility] Squamous epithelial cells de tection in urine sediment by light microscopyOrdered By: Jonathan Dillard on 08-31-2023 Epithelial cells.squamous LM Ql (Urine sed) 0 SEEN /hpf 5-10 [facility] Thin prep Papanicolaou smear with manual screeningOrdered By: Jonathan Dillard on 08-31-2023 Thin prep Papanicolaou smear with manual screening 3 5-15 [facility] Urine blood detectionOrdered By: Jonathan Dillard on 08-31-2023 RBC Ql (U) 250 /ul Negative [facility] RBC Ql (U) > 100 SEEN /hpf 0-5 [facility] Urine clarityOrdered By: Mervat Dillard on 08-31-2023 Clarity (U) Cloudy Clear [facility] Urine color determinationOrd ered By: Jonathan Dillard on 08-31-2023 Color (U) Yellow Yellow [facility] Urine glucose detectionOrder ed By: Jonathan Dillard on 08-31-2023 Glucose Ql (U) Normal mg/dl Normal [facility] Urine leukocyte esterase det ection by dipstickOrdered By: Jonathan Dillard on 08-31-2023 Leukocyte esterase Test strip Ql (U) 500 /ul Negative [facility] Urine pHOrdered By: Jonathan ramirez on 08-31-2023 pH (U) 6.0 [pH] 5.0 - 8.0 [facility] Urine sediment bacteria coun t by microscopy (number/high power field)Ordered By: Jonathan Dillard on 08-31-2023 Bacteria LM.HPF (Urine sed) [#/Area] 2 /[HPF] None Seen [facility] Urine specific gravity measu rementOrdered By: Jonathan Dillard on 08-31-2023 Specific gravity (U) [Rel density] 1.015 1.002-1.030 [facility] Urobilinogen Auto test strip Ql (U)Ordered By: Jonathan Dillard on 08-31-2023 Urobilinogen Ql (U) Normal mg/dl Normal [facility] Culture, urineOrdered By: Higuera on 08-17-2023 Bacteria identified Cx Nom (U) Mixed Gram Pos & Gram Neg Org [facility] XR BARIUM ENEMA COMPLETEon 1 XR BARIUM [...] 08/17/2023 3:50:07 PM Ordering Provider: MARK JEREZ [facility] ([place]) Basophil percentageOrdered B y: Jonathan Dillard on 08-16-2023 Basophil percentage 0-5 SEEN /hpf 0-5 [facility] Bilirubin Test strip Ql (U)O rdered By: Jonathan Dillard on 08-16-2023 Bilirubin Ql (U) Negative Negative [facility] Culture, urineOrdered By: Higuera on 08-16-2023 Bacteria identified Cx Nom (U) Mixed Gram Pos & Gram Neg Org [facility] Hyaline casts LM.LPF (Urine sed) [#/Area]Ordered By: Jonathan Dillard on 08-16-2023 Hyaline casts (Urine sed) [#/Area] 5 /[LPF] 0-5 [facility] Ketones Test strip Ql (U)Ord ered By: Jonathan Dillard on 08-16-2023 Ketones Ql (U) 5 mg/dl Negative [facility] Mucus LM Ql (Urine sed)Order ed By: Jonathan Dillard on 08-16-2023 Mucus Ql (Urine sed) 0 SEEN /hpf [facility] Nitrite Test strip Ql (U)Ord ered By: Jonathan Dillard on 08-16-2023 Nitrite Ql (U) Negative Negative [facility] Protein Test strip Ql (U)Ord ered By: Jonathan Dillard on 08-16-2023 Protein Ql (U) 100 mg/dl Negative [facility] Squamous epithelial cells de tection in urine sediment by light microscopyOrdered By: Jonathan Dillard on 08-16-2023 Epithelial cells.squamous LM Ql (Urine sed) 5-10 SEEN /hpf 5-10 [facility] Urine blood detectionOrdered By: Jonathan Dillard on 08-16-2023 RBC Ql (U) 150 /ul Negative [facility] RBC Ql (U) 5-10 SEEN /hpf 0-5 [facility] Urine clarityOrdered By: Mervat Dillard on 08-16-2023 Clarity (U) Sl. Cloudy Clear [facility] Urine color determinationOrd ered By: Jonathan Dillard on 08-16-2023 Color (U) Yellow Yellow [facility] Urine glucose detectionOrder ed By: Jonathan Dillard on 08-16-2023 Glucose Ql (U) Normal mg/dl Normal [facility] Urine leukocyte esterase det ection by dipstickOrdered By: Jonathan Dillard on 08-16-2023 Leukocyte esterase Test strip Ql (U) 25 /ul Negative [facility] Urine pHOrdered By: Jonathan ramirez on 08-16-2023 pH (U) 5.0 [pH] 5.0 - 8.0 [facility] Urine sediment bacteria coun t by microscopy (number/high power field)Ordered By: Jonathan Dillard on 08-16-2023 Bacteria LM.HPF (Urine sed) [#/Area] 1 /[HPF] None Seen [facility] Urine specific gravity measu rementOrdered By: Jonathan Dillard on 08-16-2023 Specific gravity (U) [Rel density] 1.025 1.002-1.030 [facility] Urobilinogen Auto test strip Ql (U)Ordered By: Jonathan Dillard on 08-16-2023 Urobilinogen Ql (U) Normal mg/dl Normal [facility] LABORATORYOrdered By: Amy Gomez on 08-15-2023 Glucose [Mass/Vol] 147 mg/dL Invalid Interpretation Code 82 - 115 mg/dL [facility] Work Phone: XR ABDOMEN APon 08-15-2023 XR [...] 08/15/2023 12:08:09 PM Ordering Provider: MARK JEREZ [facility] ([place]) Absolute lymphocyte countOrd ered By: Calvin Hester on 08-10-2023 Lymphocytes Auto (Unsp spec) [#/Vol] 0.52 10*3/uL 0.83-4.51 [facility] Basophil percentageOrdered B y: Calvin Hester on 08-10-2023 Basophils/100 WBC (Bld) 0.1 % 0-1 [facility] Chloride [Moles/Vol] 103 mmol/L 98-107 [facility] Eosinophils/100 WBC (Bld) 0.4 % 0-5 [facility] Glucose [Mass/Vol] 149 mg/dL 74-106 [facility] Comment on above: Fasting Glucose resu lt greater than or equal to 126 mg/dL suggests DIABETES MELLITUS per A.D.A. criteria. Neutrophils (Bld) [#/Vol] 5.8 10*3/uL 2.0-7.7 [facility] Neutrophils/100 WBC (Bld) 85.8 % 47-70 [facility] Potassium [Moles/Vol] 4.1 mmol/L 3.5-5.1 [facility] Sodium [Moles/Vol] 144 mmol/L 136-145 [facility] WBC (Bld) [#/Vol] 6.8 10*3/uL 4.4-11.0 [facility] Blood erythrocytes count (nu mber/volume)Ordered By: Calvin Hester on 08-10-2023 RBC (Bld) [#/Vol] 3.38 10*6/uL 4.2-5.4 [facility] Blood hemoglobin measurement (mass/volume)Ordered By: Calvin Hester on 08-10-2023 Hemoglobin (Bld) [Mass/Vol] 9.9 g/dL 12.0-15.0 [facility] Blood lymphocytes/100 leukoc ytesOrdered By: Calvin Hester on 08-10-2023 Lymphocytes/100 WBC (Bld) 7.6 % 19-41 [facility] Blood manual differential co mment interpretation (narrative result)Ordered By: Calvin Hester on 08-10-2023 Manual differential comment Ajit (Bld) [Interp] SCANNED [facility] Comment on above: LYMPHOPENIA NOTED Blood monocytes/100 leukocyt esOrdered By: Calvin Hester on 08-10-2023 Monocytes/100 WBC (Bld) 5.7 % 0-10 [facility] Blood platelet mean volumeOr dered By: Calvin Hester on 08-10-2023 Platelet mean volume (Bld) [Entitic vol] 9.1 fL 6.2-12.0 [facility] Determination of erythrocyte mean corpuscular volume (MCV)Ordered By: Calvin Hester on 08-10-2023 MCV (RBC) [Entitic vol] 100.0 fL 81-99 [facility] Hematocrit Auto (Bld) [Volum e fraction]Ordered By: Calvin Hester on 08-10-2023 Hematocrit (Bld) [Volume fraction] 33.8 % 37-47 [facility] - Chemistry and C hemistry - challengeOrdered By: Calvin Hester on 08-10-2023 CO2 [Moles/Vol] 40.0 mmol/L 21.0-32.0 [facility] Magnesium [Mass/Vol] 2.1 mg/dL 1.6-2.6 [facility] Urea nitrogen/Creatinine [Mass ratio] 29.3 mg/mg 10-20 [facility] - Hematology and Cell countsOrdered By: Calvin Hester on 08-10-2023 Erythrocyte distribution width (RBC) [Entitic vol] 51.8 fL 35.1-43.9 [facility] Erythrocyte distribution width (RBC) [Ratio] 14.1 % 11.6-14.6 [facility] Immature granulocytes/100 WBC (Bld) 0.400 % 0.0-0.9 [facility] Comment on above: IG% - Immature Granu locytes (promyelocytes, myelocytes and metamyelocytes) > 1% indicates that a LEFT SHIFT is Present. MCH (RBC) [Entitic mass] 29.3 pg 27.0-32.0 [facility] Nucleated RBC/100 WBC (Bld) [Ratio] 0 % 0-5 [facility] MCHC Auto (RBC) [Mass/Vol]Or dered By: Calvin Hester on 08-10-2023 MCHC (RBC) [Mass/Vol] 29.3 g/dL 32-36 [facility] No Panel InformationOrdered By: Calvin Hester on 08-10-2023 Estimated Creatinine Clearance Calc 45.09 ml/min [facility] Estimated GFR (MDRD) Amer 123 mL/min >60 [facility] Comment on above: GFR Calc Estimated GFR (MDRD) Non-Af Amer 101 mL/min >60 [facility] Comment on above: Non- GFR Calc Platelets bldOrdered By: Farooq Hester on 08-10-2023 Platelets (Bld) [#/Vol] 108 10*3/uL 150-450 [facility] Serum or plasma calcium celina urement (mass/volume)Ordered By: Calvin Hester on 08-10-2023 Calcium [Mass/Vol] 8.4 mg/dL 8.5-10.1 [facility] Serum or plasma creatinine m easurement (mass/volume)Ordered By: Calvin Hester on 08-10-2023 Creatinine [Mass/Vol] 0.61 mg/dL 0.55-1.02 [facility] Comment on above: The validity of the calculated GFR & GFRAA in patients over 70 years has not been determined. Clinical correlation is essential. Serum or plasma urea nitroge n measurement (mass/volume)Ordered By: Calvin Hester on 08-10-2023 Urea nitrogen [Mass/Vol] 18 mg/dL 7-18 [facility] Thin prep Papanicolaou smear with manual screeningOrdered By: Calvin Hester on 08-10-2023 Thin prep Papanicolaou smear with manual screening 1 5-15 [facility] Absolute lymphocyte countOrd ered By: Shahnaz Way on 07-14-2023 Lymphocytes Auto (Unsp spec) [#/Vol] 0.68 10*3/uL 0.83-4.51 [facility] Basophil percentageOrdered B y: Shahnaz Way on 07-14-2023 Basophil percentage 0 SEEN /hpf 0-5 [facility] Basophils/100 WBC (Bld) 0.2 % 0-1 [facility] Bilirubin [Mass/Vol] 0.30 mg/dL 0.20-1.00 [facility] Comment on above: For patients on eltr ombopag therapy, use of Dimension Simpson TBIL is not recommended. Chloride [Moles/Vol] 103 mmol/L 98-107 [facility] [facility] Eosin[facility]/100 WBC (Bld) 1.3 % 0-5 [facility] Glucose [Mass/Vol] 127 mg/dL 74-106 [facility] Comment on above: Fasting Glucose resu lt greater than or equal to 126 mg/dL suggests DIABETES MELLITUS per A.D.A. criteria. Neutrophils (Bld) [#/Vol] 3.6 10*3/uL 2.0-7.7 [facility] Neutrophils/100 WBC (Bld) 76.9 % 47-70 [facility] Potassium [Moles/Vol] 3.7 mmol/L 3.5-5.1 [facility] Protein [Mass/Vol] 7.0 g/dL 6.4-8.2 [facility] Sodium [Moles/Vol] 144 mmol/L 136-145 [facility] WBC (Bld) [#/Vol] 4.6 10*3/uL 4.4-11.0 [facility] Bilirubin Test strip Ql (U)O rdered By: Shahnaz Way on 07-14-2023 Bilirubin Ql (U) Negative Negative [facility] Blood erythrocytes count (nu mber/volume)Ordered By: Shahnaz Way on 07-14-2023 RBC (Bld) [#/Vol] 3.10 10*6/uL 4.2-5.4 [facility] Blood hemoglobin measurement (mass/volume)Ordered By: Shahnaz Way on 07-14-2023 Hemoglobin (Bld) [Mass/Vol] 8.8 g/dL 12.0-15.0 [facility] Blood lymphocytes/100 leukoc ytesOrdered By: Shahnaz Way on 07-14-2023 Lymphocytes/100 WBC (Bld) 14.7 % 19-41 [facility] Blood monocytes/100 leukocyt esOrdered By: Shahnaz Way on 07-14-2023 Monocytes/100 WBC (Bld) 6.5 % 0-10 [facility] Blood platelet mean volumeOr dered By: Shahnaz Way on 07-14-2023 Platelet mean volume (Bld) [Entitic vol] 8.9 fL 6.2-12.0 [facility] Determination of erythrocyte mean corpuscular volume (MCV)Ordered By: Shahnaz Way on 07-14-2023 MCV (RBC) [Entitic vol] 101.3 fL 81-99 [facility] Hematocrit Auto (Bld) [Volum e fraction]Ordered By: Shahnaz Way on 07-14-2023 Hematocrit (Bld) [Volume fraction] 31.4 % 37-47 [facility] Ketones Test strip Ql (U)Ord ered By: Shahnaz Way on 07-14-2023 Ketones Ql (U) Negative Negative [facility] Laboratory - Chemistry and C hemistry - challengeOrdered By: Shahnaz Way on 07-14-2023 ALP [Catalytic activity/Vol] 76 U/L 45-117 [facility] ALT [Catalytic activity/Vol] 25 U/L 13-56 [facility] CO2 [Moles/Vol] 40.0 mmol/L 21.0-32.0 [facility] Globulin (S) [Mass/Vol] 4.4 g/dL 2.2-4.2 [facility] Urea nitrogen/Creatinine [Mass ratio] 37.6 mg/mg 10-20 [facility] Laboratory - Hematology and Cell countsOrdered By: Shahnaz Way on 07-14-2023 Erythrocyte distribution width (RBC) [Entitic vol] 53.1 fL 35.1-43.9 [facility] Erythrocyte distribution width (RBC) [Ratio] 14.4 % 11.6-14.6 [facility] Immature granulocytes/100 WBC (Bld) 0.400 % 0.0-0.9 [facility] Comment on above: IG% - Immature Granu locytes (promyelocytes, myelocytes and metamyelocytes) > 1% indicates that a LEFT SHIFT is Present. MCH (RBC) [Entitic mass] 28.4 pg 27.0-32.0 [facility] Nucleated RBC/100 WBC (Bld) [Ratio] 0 % 0-5 [facility] MCHC Auto (RBC) [Mass/Vol]Or dered By: Shahnaz Way on 07-14-2023 MCHC (RBC) [Mass/Vol] 28.0 g/dL 32-36 [facility] Mucus LM Ql (Urine sed)Order ed By: Shahnaz Way on 07-14-2023 Mucus Ql (Urine sed) 0 SEEN /hpf [facility] Nitrite Test strip Ql (U)Ord ered By: Shahnaz Way on 07-14-2023 Nitrite Ql (U) Negative Negative [facility] No Panel InformationOrdered By: Shahnaz Way on 07-14-2023 Estimated Creatinine Clearance Calc 45.09 ml/min [facility] Estimated GFR (MDRD) Amer 123 mL/min >60 [facility] Comment on above: GFR Calc Estimated GFR (MDRD) Non-Af Amer 102 mL/min >60 [facility] Comment on above: Non- GFR Calc Platelets bldOrdered By: Jaimee Way on 07-14-2023 Platelets (Bld) [#/Vol] 117 10*3/uL 150-450 [facility] Protein Test strip Ql (U)Ord ered By: Shahnaz Way on 07-14-2023 Protein Ql (U) 15 mg/dl Negative [facility] Serum or plasma albumin celina urement (mass/volume)Ordered By: Shahnaz Way on 07-14-2023 Albumin [Mass/Vol] 2.6 g/dL 3.2-5.0 [facility] Serum or plasma albumin/glob ulin mass ratioOrdered By: Shahnaz Way on 07-14-2023 Albumin/Globulin [Mass ratio] 0.6 {ratio} 0.9-2.4 [facility] Serum or plasma calcium celina urement (mass/volume)Ordered By: Shahnaz Way on 07-14-2023 Calcium [Mass/Vol] 8.8 mg/dL 8.5-10.1 [facility] Serum or plasma creatinine m easurement (mass/volume)Ordered By: Shahnaz Way on 07-14-2023 Creatinine [Mass/Vol] 0.61 mg/dL 0.55-1.02 [facility] Comment on above: The validity of the calculated GFR & GFRAA in patients over 70 years has not been determined. Clinical correlation is essential. Serum or plasma urea nitroge n measurement (mass/volume)Ordered By: Shahnaz Way on 07-14-2023 Urea nitrogen [Mass/Vol] 23 mg/dL 7-18 [facility] Squamous epithelial cells de tection in urine sediment by light microscopyOrdered By: Shahnaz Way on 07-14-2023 Epithelial cells.squamous LM Ql (Urine sed) 0 SEEN /hpf 5-10 [facility] Thin prep Papanicolaou smear with manual screeningOrdered By: Shahnaz Way on 07-14-2023 Thin prep Papanicolaou smear with manual screening 17 U/L 15-37 [facility] Thin prep Papanicolaou smear with manual screening 1 5-15 [facility] Urine blood detectionOrdered By: Shahnaz Way on 07-14-2023 RBC Ql (U) Negative Negative [facility] RBC Ql (U) 0-5 SEEN /hpf 0-5 [facility] Urine clarityOrdered By: Jaimee Way on 07-14-2023 Clarity (U) Clear Clear [facility] Urine color determinationOrd ered By: Shahnaz Wya on 07-14-2023 Color (U) Yellow Yellow [facility] Urine glucose detectionOrder ed By: Shahnaz Way on 07-14-2023 Glucose Ql (U) Normal mg/dl Normal [facility] Urine leukocyte esterase det ection by dipstickOrdered By: Shahnaz Way on 07-14-2023 Leukocyte esterase Test strip Ql (U) Negative Negative [facility] Urine pHOrdered By: Shahnaz hoffman on 07-14-2023 pH (U) 6.0 [pH] 5.0 - 8.0 [facility] Urine sediment bacteria coun t by microscopy (number/high power field)Ordered By: Shahnaz Way on 07-14-2023 Bacteria LM.HPF (Urine sed) [#/Area] 0 /[HPF] None Seen [facility] Urine specific gravity measu rementOrdered By: Shahnaz Way on 07-14-2023 Specific gravity (U) [Rel density] 1.020 1.002-1.030 [facility] Urobilinogen Auto test strip Ql (U)Ordered By: Shahnaz Way on 07-14-2023 Urobilinogen Ql (U) Normal mg/dl Normal [facility] Basophil percentageOrdered B y: Jonathan Dillard on 06-28-2023 Bilirubin [Mass/Vol] 0.40 mg/dL 0.20-1.00 [facility] Comment on above: For patients on eltr ombopag therapy, use of Dimension Simpson TBIL is not recommended. Chloride [Moles/Vol] 101 mmol/L 98-107 [facility] Glucose [Mass/Vol] 117 mg/dL 74-106 [facility] Comment on above: Fasting Glucose resu lt from 100 to 125 mg/dL suggests IMPAIRED HOMEOSTASIS per A.D.A. criteria. Potassium [Moles/Vol] 3.9 mmol/L 3.5-5.1 [facility] Protein [Mass/Vol] 6.8 g/dL 6.4-8.2 [facility] Sodium [Moles/Vol] 145 mmol/L 136-145 [facility] WBC (Bld) [#/Vol] 4.6 10*3/uL 4.4-11.0 [facility] Blood erythrocytes count (nu mber/volume)Ordered By: Jonathan Dillard on 06-28-2023 RBC (Bld) [#/Vol] 3.02 10*6/uL 4.2-5.4 [facility] Blood hemoglobin measurement (mass/volume)Ordered By: Jonathan Dillard on 06-28-2023 Hemoglobin (Bld) [Mass/Vol] 8.6 g/dL 12.0-15.0 [facility] Blood platelet mean volumeOr dered By: Jonathan Dillard on 06-28-2023 Platelet mean volume (Bld) [Entitic vol] 9.0 fL 6.2-12.0 [facility] Determination of erythrocyte mean corpuscular volume (MCV)Ordered By: Jonathan Dillard on 06-28-2023 MCV (RBC) [Entitic vol] 101.7 fL 81-99 [facility] Hematocrit Auto (Bld) [Volum e fraction]Ordered By: Jonathan Dillard on 06-28-2023 Hematocrit (Bld) [Volume fraction] 30.7 % 37-47 [facility] - Chemistry and C hemistry - challengeOrdered By: Jonathan Dillard on 06-28-2023 ALP [Catalytic activity/Vol] 72 U/L 45-117 [facility] ALT [Catalytic activity/Vol] 16 U/L 13-56 [facility] CO2 [Moles/Vol] 43.0 mmol/L 21.0-32.0 [facility] Globulin (S) [Mass/Vol] 4.2 g/dL 2.2-4.2 [facility] Lipase [Catalytic activity/Vol] 18 U/L 13-75 [facility] Comment on above: Please note:LIPASE r evised reference range effective 23. New Lipase methodology. Expected to produce lower values than the previous assay method. NEW Reference Range: 13 - 75 U/L Urea nitrogen/Creatinine [Mass ratio] 32.5 mg/mg 10-20 [facility] - Hematology and Cell countsOrdered By: Jonathan Dillard on 06-28-2023 Erythrocyte distribution width (RBC) [Entitic vol] 53.0 fL 35.1-43.9 [facility] Erythrocyte distribution width (RBC) [Ratio] 14.1 % 11.6-14.6 [facility] MCH (RBC) [Entitic mass] 28.5 pg 27.0-32.0 [facility] MCHC Auto (RBC) [Mass/Vol]Or dered By: Jonathan Dillard on 06-28-2023 MCHC (RBC) [Mass/Vol] 28.0 g/dL 32-36 [facility] No Panel InformationOrdered By: Jonathan Dillard on 08-15-2023 Estimated GFR (MDRD) Amer 115 mL/min >60 [facility] Comment on above: GFR Calc Estimated GFR (MDRD) Non-Af Amer 95 mL/min >60 [facility] Comment on above: Non- GFR Calc Platelets bldOrdered By: Mervat Dillard on 06-28-2023 Platelets (Bld) [#/Vol] 111 10*3/uL 150-450 [facility] Serum or plasma albumin celina urement (mass/volume)Ordered By: Jonathan Dillard on 06-28-2023 Albumin [Mass/Vol] 2.6 g/dL 3.2-5.0 [facility] Serum or plasma albumin/glob ulin mass ratioOrdered By: Jonathan Dillard on 06-28-2023 Albumin/Globulin [Mass ratio] 0.6 {ratio} 0.9-2.4 [facility] Serum or plasma calcium celina urement (mass/volume)Ordered By: Jonathan Dillard on 06-28-2023 Calcium [Mass/Vol] 9.0 mg/dL 8.5-10.1 [facility] Serum or plasma creatinine m easurement (mass/volume)Ordered By: Jonathan Dillard on 06-28-2023 Creatinine [Mass/Vol] 0.65 mg/dL 0.55-1.02 [facility] Comment on above: The validity of the calculated GFR & GFRAA in patients over 70 years has not been determined. Clinical correlation is essential. Serum or plasma urea nitroge n measurement (mass/volume)Ordered By: Jonathan Dillard on 06-28-2023 Urea nitrogen [Mass/Vol] 21 mg/dL 7-18 [facility] Thin prep Papanicolaou smear with manual screeningOrdered By: Jonathan Dillard on 06-28-2023 Thin prep Papanicolaou smear with manual screening 12 U/L 15-37 [facility] Thin prep Papanicolaou smear with manual screening 1 -15 [facility] Basophil percentageOrdered B y: Jonathan Dillard on 06-13-2023 Bilirubin [Mass/Vol] 0.40 mg/dL 0.20-1.00 [facility] Comment on above: For patients on eltr ombopag therapy, use of Dimension Simpson TBIL is not recommended. Chloride [Moles/Vol] 104 mmol/L 98-107 [facility] Glucose [Mass/Vol] 114 mg/dL 74-106 [facility] Comment on above: Fasting Glucose resu lt from 100 to 125 mg/dL suggests IMPAIRED HOMEOSTASIS per A.D.A. criteria. Potassium [Moles/Vol] 4.0 mmol/L 3.5-5.1 [facility] Protein [Mass/Vol] 6.8 g/dL 6.4-8.2 [facility] Sodium [Moles/Vol] 146 mmol/L 136-145 [facility] WBC (Bld) [#/Vol] 4.5 10*3/uL 4.4-11.0 [facility] Blood erythrocytes count (nu mber/volume)Ordered By: Jonathan Dillard on 06-13-2023 RBC (Bld) [#/Vol] 3.13 10*6/uL 4.2-5.4 [facility] Blood hemoglobin measurement (mass/volume)Ordered By: Jonathan Dillard on 06-13-2023 Hemoglobin (Bld) [Mass/Vol] 9.0 g/dL 12.0-15.0 [facility] Blood platelet mean volumeOr dered By: Jonathan Dillard on 06-13-2023 Platelet mean volume (Bld) [Entitic vol] 9.1 fL 6.2-12.0 [facility] Determination of erythrocyte mean corpuscular volume (MCV)Ordered By: Jonathan Dillard on 06-13-2023 MCV (RBC) [Entitic vol] 100.6 fL 81-99 [facility] Hematocrit Auto (Bld) [Volum e fraction]Ordered By: Jonathan Dillard on 06-13-2023 Hematocrit (Bld) [Volume fraction] 31.5 % 37-47 [facility] - Chemistry and C hemistry - challengeOrdered By: Jonathan Dillard on 06-13-2023 ALP [Catalytic activity/Vol] 72 U/L 45-117 [facility] ALT [Catalytic activity/Vol] 14 U/L 13-56 [facility] CO2 [Moles/Vol] 42.0 mmol/L 21.0-32.0 [facility] Globulin (S) [Mass/Vol] 4.2 g/dL 2.2-4.2 [facility] Urea nitrogen/Creatinine [Mass ratio] 30.8 mg/mg 10-20 [facility] - Hematology and Cell countsOrdered By: Jonathan Dillard on 06-13-2023 Erythrocyte distribution width (RBC) [Entitic vol] 51.3 fL 35.1-43.9 [facility] Erythrocyte distribution width (RBC) [Ratio] 13.9 % 11.6-14.6 [facility] MCH (RBC) [Entitic mass] 28.8 pg 27.0-32.0 [facility] MCHC Auto (RBC) [Mass/Vol]Or dered By: Jonathan Dillard on 06-13-2023 MCHC (RBC) [Mass/Vol] 28.6 g/dL 32-36 [facility] No Panel InformationOrdered By: Jonathan Dillard on 06-13-2023 Estimated GFR (MDRD) Amer 115 mL/min >60 [facility] Comment on above: GFR Calc Estimated GFR (MDRD) Non-Af Amer 95 mL/min >60 [facility] Comment on above: Non- GFR Calc Platelets bldOrdered By: Mervat Dillard on 06-13-2023 Platelets (Bld) [#/Vol] 112 10*3/uL 150-450 [facility] Serum or plasma albumin celina urement (mass/volume)Ordered By: Jonathan Dillard on 06-13-2023 Albumin [Mass/Vol] 2.6 g/dL 3.2-5.0 [facility] Serum or plasma albumin/glob ulin mass ratioOrdered By: Jonathan Dillard on 06-13-2023 Albumin/Globulin [Mass ratio] 0.6 {ratio} 0.9-2.4 [facility] Serum or plasma calcium celina urement (mass/volume)Ordered By: Jonathan Dillard on 06-13-2023 Calcium [Mass/Vol] 8.9 mg/dL 8.5-10.1 [facility] Serum or plasma creatinine m easurement (mass/volume)Ordered By: Jonathan Dillard on 06-13-2023 Creatinine [Mass/Vol] 0.65 mg/dL 0.55-1.02 [facility] Comment on above: The validity of the calculated GFR & GFRAA in patients over 70 years has not been determined. Clinical correlation is essential. Serum or plasma urea nitroge n measurement (mass/volume)Ordered By: Jonathan Dillard on 06-13-2023 Urea nitrogen [Mass/Vol] 20 mg/dL 7-18 [facility] Thin prep Papanicolaou smear with manual screeningOrdered By: Jonathan Dillard on 06-13-2023 Thin prep Papanicolaou smear with manual screening 11 U/L 15-37 [facility] Thin prep Papanicolaou smear with manual screening 0 5-15 [facility] Absolute lymphocyte countOrd ered By: Delfin Jeffries on 05-04-2023 Lymphocytes Auto (Unsp spec) [#/Vol] 0.78 10*3/uL 0.83-4.51 [facility] Basophil percentageOrdered B y: Delfin Jeffries on 05-04-2023 Basophils/100 WBC (Bld) 0.2 % 0-1 [facility] Bilirubin [Mass/Vol] 0.40 mg/dL 0.20-1.00 [facility] Comment on above: For patients on eltr ombopag therapy, use of Dimension Simpson TBIL is not recommended. Chloride [Moles/Vol] 104 mmol/L 98-107 [facility] Eosinophils/100 WBC (Bld) 1.3 % 0-5 [facility] Glucose [Mass/Vol] 175 mg/dL 74-106 [facility] Comment on above: Fasting Glucose resu lt greater than or equal to 126 mg/dL suggests DIABETES MELLITUS per A.D.A. criteria. LDH [Catalytic activity/Vol] 125 U/L 84-246 [facility] Neutrophils (Bld) [#/Vol] 4.2 10*3/uL 2.0-7.7 [facility] Neutrophils/100 WBC (Bld) 79.1 % 47-70 [facility] Potassium [Moles/Vol] 4.0 mmol/L 3.5-5.1 [facility] Protein [Mass/Vol] 7.5 g/dL 6.4-8.2 [facility] Sodium [Moles/Vol] 144 mmol/L 136-145 [facility] WBC (Bld) [#/Vol] 5.3 10*3/uL 4.4-11.0 [facility] Blood erythrocytes count (nu mber/volume)Ordered By: Delfin Jeffries on 05-04-2023 RBC (Bld) [#/Vol] 3.49 10*6/uL 4.2-5.4 [facility] Blood hemoglobin measurement (mass/volume)Ordered By: Delfin Jeffries on 05-04-2023 Hemoglobin (Bld) [Mass/Vol] 10.2 g/dL 12.0-15.0 [facility] Blood lymphocytes/100 leukoc ytesOrdered By: Delfin Jeffries on 05-04-2023 Lymphocytes/100 WBC (Bld) 14.7 % 19-41 [facility] Blood monocytes/100 leukocyt esOrdered By: Delfin Jeffries on 05-04-2023 Monocytes/100 WBC (Bld) 4.3 % 0-10 [facility] Blood platelet mean volumeOr dered By: Delfin Jeffries on 05-04-2023 Platelet mean volume (Bld) [Entitic vol] 8.6 fL 6.2-12.0 [facility] Determination of erythrocyte mean corpuscular volume (MCV)Ordered By: Delfin Jeffries on 05-04-2023 MCV (RBC) [Entitic vol] 99.7 fL 81-99 [facility] Hematocrit Auto (Bld) [Volum e fraction]Ordered By: Delfin Jeffries on 05-04-2023 Hematocrit (Bld) [Volume fraction] 34.8 % 37-47 [facility] Hemoglobin in reticulocytes (mass per reticulocyte)Ordered By: Delfin Jeffries on 05-04-2023 Hemoglobin (Reticulocytes) [Entitic mass] 31.0 pg 30-35 [facility] Iron measurement (mass/mass) Ordered By: Delfin Jeffries on 05-04-2023 Iron (Unsp spec) [Mass/Mass] 42 ug/dL 50-170 [facility] - Chemistry and C hemistry - challengeOrdered By: Delfin Jeffries on 05-04-2023 ALP [Catalytic activity/Vol] 84 U/L 45-117 [facility] ALT [Catalytic activity/Vol] 21 U/L 13-56 [facility] CO2 [Moles/Vol] 39.0 mmol/L 21.0-32.0 [facility] Globulin (S) [Mass/Vol] 4.5 g/dL 2.2-4.2 [facility] Urea nitrogen/Creatinine [Mass ratio] 32.1 mg/mg 10-20 [facility] - Hematology and Cell countsOrdered By: Delfin Jeffries on 05-04-2023 Erythrocyte distribution width (RBC) [Entitic vol] 51.9 fL 35.1-43.9 [facility] Erythrocyte distribution width (RBC) [Ratio] 14.6 % 11.6-14.6 [facility] Immature granulocytes/100 WBC (Bld) 0.400 % 0.0-0.9 [facility] Comment on above: IG% - Immature Granu locytes (promyelocytes, myelocytes and metamyelocytes) > 1% indicates that a LEFT SHIFT is Present. MCH (RBC) [Entitic mass] 29.2 pg 27.0-32.0 [facility] Nucleated RBC/100 WBC (Bld) [Ratio] 0 % 0-5 [facility] MCHC Auto (RBC) [Mass/Vol]Or dered By: Delfin Jeffries on 05-04-2023 MCHC (RBC) [Mass/Vol] 29.3 g/dL 32-36 [facility] No Panel InformationOrdered By: Delfin Jeffries on 05-04-2023 Estimated GFR (MDRD) Amer 103 mL/min >60 [facility] Comment on above: GFR Calc Estimated GFR (MDRD) Non-Af Amer 85 mL/min >60 [facility] Comment on above: Non- GFR Calc Immature Reticulocyte Fraction 26.90 % 3.00-15.90 [facility] Reticulocyte Count 2.39 % 0.5-1.5 [facility] Total Iron Binding Capacity 197 ug/dL 250-450 [facility] Platelets bldOrdered By: Luciano Jeffries on 05-04-2023 Platelets (Bld) [#/Vol] 107 10*3/uL 150-450 [facility] Serum or plasma albumin celina urement (mass/volume)Ordered By: Delfin Jeffries on 05-04-2023 Albumin [Mass/Vol] 3.0 g/dL 3.2-5.0 [facility] Serum or plasma albumin/glob ulin mass ratioOrdered By: Delfin Jeffries on 05-04-2023 Albumin/Globulin [Mass ratio] 0.7 {ratio} 0.9-2.4 [facility] Serum or plasma calcium celina urement (mass/volume)Ordered By: Delfin Jeffries on 05-04-2023 Calcium [Mass/Vol] 8.7 mg/dL 8.5-10.1 [facility] Serum or plasma creatinine m easurement (mass/volume)Ordered By: Delfin Benson on 05-04-2023 Creatinine [Mass/Vol] 0.72 mg/dL 0.55-1.02 [facility] Comment on above: The validity of the calculated GFR & GFRAA in patients over 70 years has not been determined. Clinical correlation is essential. Serum or plasma ferritin carter surement (mass/volume)Ordered By: Delfin Jeffries on 05-04-2023 Ferritin [Mass/Vol] 192 ng/mL 8-252 [facility] Serum or plasma iron saturat ion measurement (mass fraction)Ordered By: Delfin Kelley on 05-04-2023 Iron saturation [Mass fraction] 21.3 % 15.0-55.0 [facility] Serum or plasma urea nitroge n measurement (mass/volume)Or[facility] By: [facility] Urea nitrogen [Mass/Vol] 23 mg/dL 7-18 [facility] Thin prep Papanicolaou smear with manual screeningOrdered By: Delfin Jeffries on 05-04-2023 Thin prep Papanicolaou smear with manual screening 16 U/L 15-37 [facility] Thin prep Papanicolaou smear with manual screening 1 5-15 [facility] Absolute lymphocyte countOrd ered By: Dr. Vela on 04-19-2023 Lymphocytes Auto (Unsp spec) [#/Vol] 0.71 10*3/uL 0.83-4.51 [facility] Basophil percentageOrdered B y: Dr. Vela on 04-19-2023 Basophil percentage 0 SEEN /hpf 0-5 [facility] Basophils/100 WBC (Bld) 0.2 % 0-1 [facility] Bilirubin [Mass/Vol] 0.40 mg/dL 0.20-1.00 [facility] Comment on above: For patients on eltr ombopag therapy, use of Dimension Simpson TBIL is not recommended. Chloride [Moles/Vol] 102 mmol/L 98-107 [facility] Eosinophils/100 WBC (Bld) 0.9 % 0-5 [facility] Glucose [Mass/Vol] 108 mg/dL 74-106 [facility] Comment on above: Fasting Glucose resu lt from 100 to 125 mg/dL suggests IMPAIRED HOMEOSTASIS per A.D.A. criteria. Neutrophils (Bld) [#/Vol] 5.2 10*3/uL 2.0-7.7 [facility] Neutrophils/100 WBC (Bld) 81.7 % 47-70 [facility] Potassium [Moles/Vol] 3.9 mmol/L 3.5-5.1 [facility] Protein [Mass/Vol] 7.7 g/dL 6.4-8.2 [facility] Sodium [Moles/Vol] 146 mmol/L 136-145 [facility] WBC (Bld) [#/Vol] 6.3 10*3/uL 4.4-11.0 [facility] Bilirubin Test strip Ql (U)O rdered By: Dr. Vela on 04-19-2023 Bilirubin Ql (U) Negative Negative [facility] Blood erythrocytes count (nu mber/volume)Ordered By: Dr. Vela on 04-19-2023 RBC (Bld) [#/Vol] 3.35 10*6/uL 4.2-5.4 [facility] Blood hemoglobin measurement (mass/volume)Ordered By: Dr. Vela on 04-19-2023 Hemoglobin (Bld) [Mass/Vol] 9.6 g/dL 12.0-15.0 [facility] Blood lymphocytes/100 leukoc ytesOrdered By: Dr. Vela on 04-19-2023 Lymphocytes/100 WBC (Bld) 11.2 % 19-41 [facility] Blood monocytes/100 leukocyt esOrdered By: Dr. Vela on 04-19-2023 Monocytes/100 WBC (Bld) 5.5 % 0-10 [facility] Blood platelet mean volumeOr dered By: Dr. Vela on 04-19-2023 Platelet mean volume (Bld) [Entitic vol] 9.5 fL 6.2-12.0 [facility] Determination of erythrocyte mean corpuscular volume (MCV)Ordered By: Dr. Vela on 04-19-2023 MCV (RBC) [Entitic vol] 98.5 fL 81-99 [facility] Hematocrit Auto (Bld) [Volum e fraction]Ordered By: Dr. Vela on 04-19-2023 Hematocrit (Bld) [Volume fraction] 33.0 % 37-47 [facility] Ketones Test strip Ql (U)Ord ered By: Dr. Vela on 04-19-2023 Ketones Ql (U) Negative Negative [facility] - Chemistry and C hemistry - challengeOrdered By: Dr. Vela on 04-19-2023 ALP [Catalytic activity/Vol] 96 U/L 45-117 [facility] ALT [Catalytic activity/Vol] 21 U/L 13-56 [facility] CO2 [Moles/Vol] 41.0 mmol/L 21.0-32.0 [facility] Globulin (S) [Mass/Vol] 4.6 g/dL 2.2-4.2 [facility] Urea nitrogen/Creatinine [Mass ratio] 36.2 mg/mg 10-20 [facility] - Hematology and Cell countsOrdered By: Dr. Vela on 04-19-2023 Erythrocyte distribution width (RBC) [Entitic vol] 50.7 fL 35.1-43.9 [facility] Erythrocyte distribution width (RBC) [Ratio] 14.2 % 11.6-14.6 [facility] Immature granulocytes/100 WBC (Bld) 0.500 % 0.0-0.9 [facility] Comment on above: IG% - Immature Granu locytes (promyelocytes, myelocytes and metamyelocytes) > 1% indicates that a LEFT SHIFT is Present. MCH (RBC) [Entitic mass] 28.7 pg 27.0-32.0 [facility] Nucleated RBC/100 WBC (Bld) [Ratio] 0 % 0-5 [facility] MCHC Auto (RBC) [Mass/Vol]Or dered By: Dr. Vela on 04-19-2023 MCHC (RBC) [Mass/Vol] 29.1 g/dL 32-36 [facility] Mucus LM Ql (Urine sed)Order ed By: Dr. Vela on 04-19-2023 Mucus Ql (Urine sed) 0 SEEN /hpf [facility] Nitrite Test strip Ql (U)Ord ered By: Dr. Vela on 04-19-2023 Nitrite Ql (U) Negative Negative [facility] No Panel InformationOrdered By: Dr. Vela on 04-19-2023 Estimated Creatinine Clearance Calc 45.09 ml/min [facility] Estimated GFR (MDRD) Amer 118 mL/min >60 [facility] Comment on above: GFR Calc Estimated GFR (MDRD) Non-Af Amer 97 mL/min >60 [facility] Comment on above: Non- GFR Calc Platelets bldOrdered By: Dr. Vela on 04-19-2023 Platelets (Bld) [#/Vol] 103 10*3/uL 150-450 [facility] Protein Test strip Ql (U)Ord ered By: Dr. Vela on 04-19-2023 Protein Ql (U) Negative Negative [facility] Serum or plasma albumin celina urement (mass/volume)Ordered By: Dr. Vela on 04-19-2023 Albumin [Mass/Vol] 3.1 g/dL 3.2-5.0 [facility] Serum or plasma albumin/glob ulin mass ratioOrdered By: Dr. Vela on 04-19-2023 Albumin/Globulin [Mass ratio] 0.7 {ratio} 0.9-2.4 [facility] Serum or plasma calcium celina urement (mass/volume)Ordered By: Dr. Vela on 04-19-2023 Calcium [Mass/Vol] 9.3 mg/dL 8.5-10.1 [facility] Serum or plasma creatinine m easurement (mass/volume)Ordered By: Dr. Vela on 04-19-2023 Creatinine [Mass/Vol] 0.64 mg/dL 0.55-1.02 [facility] Comment on above: The validity of the calculated GFR & GFRAA in patients over 70 years has not been determined. Clinical correlation is essential. Serum or plasma urea nitroge n measurement (mass/volume)Ordered By: Dr. Vela on 04-19-2023 Urea nitrogen [Mass/Vol] 23 mg/dL 7-18 [facility] Squamous epithelial cells de tection in urine sediment by light microscopyOrdered By: Dr. Vela on 04-19-2023 Epithelial cells.squamous LM Ql (Urine sed) 0 SEEN /hpf 5-10 [facility] Thin prep Papanicolaou smear with manual screeningOrdered By: Dr. Vela on 04-19-2023 Thin prep Papanicolaou smear with manual screening 16 U/L 15-37 [facility] Thin prep Papanicolaou smear with manual screening 3 5-15 [facility] Urine blood detectionOrdered By: Dr. Vela on 04-19-2023 RBC Ql (U) Negative Negative [facility] RBC Ql (U) 0 SEEN /hpf 0-5 [facility] Urine clarityOrdered By: Dr. Vela on 04-19-2023 Clarity (U) Clear Clear [facility] Urine color determinationOrd ered By: Dr. Vela on 04-19-2023 Color (U) Yellow Yellow [facility] Urine glucose detectionOrder ed By: Dr. Vela on 04-19-2023 Glucose Ql (U) Normal mg/dl Normal [facility] Urine leukocyte esterase det ection by dipstickOrdered By: Dr. Vela on 04-19-2023 Leukocyte esterase Test strip Ql (U) Negative Negative [facility] Urine pHOrdered By: Dr. Isaias barkley on 04-19-2023 pH (U) 6.5 [pH] 5.0 - 8.0 [facility] Urine sediment bacteria coun t by microscopy (number/high power field)Ordered By: Dr. Vela on 04-19-2023 Bacteria LM.HPF (Urine sed) [#/Area] 0 /[HPF] None Seen [facility] Urine specific gravity measu rementOrdered By: Dr. Vela on 04-19-2023 Specific gravity (U) [Rel density] 1.010 1.002-1.030 [facility] Urobilinogen Auto test strip Ql (U)Ordered By: Dr. Vela on 04-19-2023 Urobilinogen Ql (U) Normal mg/dl Normal [facility] Culture, urineOrdered By: Sutherland Deperrletty on 04-15-2023 Bacteria identified Cx Nom (U) Presumptive E. coli [facility] Bacteria identified Cx Nom (U) Klebsiella pneumoniae sp pneum [facility] Basophil percentageOrdered B y: Jonathan Dillard on 04-12-2023 Basophil percentage 0-5 SEEN /hpf 0-5 [facility] Bilirubin [Mass/Vol] 0.50 mg/dL 0.20-1.00 [facility] Comment on above: For patients on eltr ombopag therapy, use of Dimension Simpson TBIL is not recommended. Chloride [Moles/Vol] 102 mmol/L 98-107 [facility] Glucose [Mass/Vol] 122 mg/dL 74-106 [facility] Comment on above: Fasting Glucose resu lt from 100 to 125 mg/dL suggests IMPAIRED HOMEOSTASIS per A.D.A. criteria. Potassium [Moles/Vol] 3.7 mmol/L 3.5-5.1 [facility] Protein [Mass/Vol] 6.9 g/dL 6.4-8.2 [facility] Sodium [Moles/Vol] 145 mmol/L 136-145 [facility] WBC (Bld) [#/Vol] 5.1 10*3/uL 4.4-11.0 [facility] Bilirubin Test strip Ql (U)O rdered By: Jonathan Dillard on 04-12-2023 Bilirubin Ql (U) Negative Negative [facility] Blood erythrocytes count (nu mber/volume)Ordered By: Jonathan Dillard on 04-12-2023 RBC (Bld) [#/Vol] 3.16 10*6/uL 4.2-5.4 [facility] Blood hemoglobin measurement (mass/volume)Ordered By: Jonathan Dillard on 04-12-2023 Hemoglobin (Bld) [Mass/Vol] 8.9 g/dL 12.0-15.0 [facility] Blood platelet mean volumeOr dered By: Jonathan Dillard on 04-12-2023 Platelet mean volume (Bld) [Entitic vol] 9.1 fL 6.2-12.0 [facility] Culture, urineOrdered By: Higuera on 04-12-2023 Bacteria identified Cx Nom (U) Presumptive E. coli [facility] Bacteria identified Cx Nom (U) Klebsiella pneumoniae sp pneum [facility] Determination of erythrocyte mean corpuscular volume (MCV)Ordered By: Jonathan Dillard on 04-12-2023 MCV (RBC) [Entitic vol] 99.7 fL 81-99 [facility] Hematocrit Auto (Bld) [Volum e fraction]Ordered By: Jonathan Dillard on 04-12-2023 Hematocrit (Bld) [Volume fraction] 31.5 % 37-47 [facility] Ketones Test strip Ql (U)Ord ered By: Jonathna Dillard on 04-12-2023 Ketones Ql (U) Negative Negative [facility] Laboratory - Chemistry and C hemistry - challengeOrdered By: Jonathan Dillard on 04-12-2023 ALP [Catalytic activity/Vol] 83 U/L 45-117 [facility] ALT [Catalytic activity/Vol] 20 U/L 13-56 [facility] CO2 [Moles/Vol] 42.0 mmol/L 21.0-32.0 [facility] Globulin (S) [Mass/Vol] 4.1 g/dL 2.2-4.2 [facility] Urea nitrogen/Creatinine [Mass ratio] 34.6 mg/mg 10-20 [facility] Laboratory - Hematology and Cell countsOrdered By: Jonathan Dillard on 04-12-2023 Erythrocyte distribution width (RBC) [Entitic vol] 53.0 fL 35.1-43.9 [facility] Erythrocyte distribution width (RBC) [Ratio] 14.5 % 11.6-14.6 [facility] MCH (RBC) [Entitic mass] 28.2 pg 27.0-32.0 [facility] MCHC Auto (RBC) [Mass/Vol]Or dered By: Jonathan Dillard on 04-12-2023 MCHC (RBC) [Mass/Vol] 28.3 g/dL 32-36 [facility] Mucus LM Ql (Urine sed)Order ed By: Jonathan Dillard on 04-12-2023 Mucus Ql (Urine sed) 0 SEEN /hpf [facility] Nitrite Test strip Ql (U)Ord ered By: Jonathan Dillard on 04-12-2023 Nitrite Ql (U) Negative Negative [facility] No Panel InformationOrdered By: Jonathan Dillard on 04-12-2023 Estimated GFR (MDRD) Amer 112 mL/min >60 [facility] Comment on above: GFR Calc Estimated GFR (MDRD) Non-Af Amer 93 mL/min >60 [facility] Comment on above: Non- GFR Calc Platelets bldOrdered By: Mervat Dillard on 04-12-2023 Platelets (Bld) [#/Vol] 115 10*3/uL 150-450 [facility] Protein Test strip Ql (U)Ord ered By: Jonathan Dillard on 04-12-2023 Protein Ql (U) Negative Negative [facility] Serum or plasma albumin celina urement (mass/volume)Ordered By: Jonathan Dillard on 04-12-2023 Albumin [Mass/Vol] 2.8 g/dL 3.2-5.0 [facility] Serum or plasma albumin/glob ulin mass ratioOrdered By: Jonathan Dillard on 04-12-2023 Albumin/Globulin [Mass ratio] 0.7 {ratio} 0.9-2.4 [facility] Serum or plasma calcium celina urement (mass/volume)Ordered By: Jonathan Dillard on 04-12-2023 Calcium [Mass/Vol] 9.0 mg/dL 8.5-10.1 [facility] Serum or plasma creatinine m easurement (mass/volume)Ordered By: Jonathan Dillard on 04-12-2023 Creatinine [Mass/Vol] 0.66 mg/dL 0.55-1.02 [facility] Comment on above: The validity of the calculated GFR & GFRAA in patients over 70 years has not been determined. Clinical correlation is essential. Serum or plasma urea nitroge n measurement (mass/volume)Ordered By: Jonathan Dillard on 04-12-2023 Urea nitrogen [Mass/Vol] 23 mg/dL 7-18 [facility] Squamous epithelial cells de tection in urine sediment by light microscopyOrdered By: Jonathan Dillard on 04-12-2023 Epithelial cells.squamous LM Ql (Urine sed) 0-5 SEEN /hpf 5-10 [facility] Thin prep Papanicolaou smear with manual screeningOrdered By: Jonathan Dillard on 04-12-2023 Thin prep Papanicolaou smear with manual screening 14 U/L 15-37 [facility] Thin prep Papanicolaou smear with manual screening 1 5-15 [facility] Urine blood detectionOrdered By: Jonathan Dillard on 04-12-2023 RBC Ql (U) Negative Negative [facility] RBC Ql (U) 0-5 SEEN /hpf 0-5 [facility] Urine clarityOrdered By: Mervat Dillard on 04-12-2023 Clarity (U) Clear Clear [facility] Urine color determinationOrd ered By: Jonathan Dillard on 04-12-2023 Color (U) Yellow Yellow [facility] Urine glucose detectionOrder ed By: Jonathan Dillard on 04-12-2023 Glucose Ql (U) Normal mg/dl Normal [facility] Urine leukocyte esterase det ection by dipstickOrdered By: Jonathan Dillard on 04-12-2023 Leukocyte esterase Test strip Ql (U) 25 /ul Negative [facility] Urine pHOrdered By: Jonathan ramirez on 04-12-2023 pH (U) 5.0 [pH] 5.0 - 8.0 [facility] Urine sediment bacteria coun t by microscopy (number/high power field)Ordered By: Jonathan Dillard on 04-12-2023 Bacteria LM.HPF (Urine sed) [#/Area] 0 /[HPF] None Seen [facility] Urine specific gravity measu rementOrdered By: Jonathan Dillard on 04-12-2023 Specific gravity (U) [Rel density] 1.020 1.002-1.030 [facility] Urobilinogen Auto test strip Ql (U)Ordered By: Jonathan Dillard on 04-12-2023 Urobilinogen Ql (U) Normal mg/dl Normal [facility] Basophil percentageOrdered B y: Jonathan Dillard on 03-28-2023 WBC (Bld) [#/Vol] 4.3 10*3/uL 4.4-11.0 [facility] Blood erythrocytes count (nu mber/volume)Ordered By: Jonathan Dillard on 03-28-2023 RBC (Bld) [#/Vol] 3.38 10*6/uL 4.2-5.4 [facility] Blood hemoglobin measurement (mass/volume)Ordered By: Jonathan Dillard on 03-28-2023 Hemoglobin (Bld) [Mass/Vol] 9.5 g/dL 12.0-15.0 [facility] Blood platelet mean volumeOr dered By: Jonathan Dillard on 03-28-2023 Platelet mean volume (Bld) [Entitic vol] 9.3 fL 6.2-12.0 [facility] Determination of erythrocyte mean corpuscular volume (MCV)Ordered By: Jonathan Dillard on 03-28-2023 MCV (RBC) [Entitic vol] 100.6 fL 81-99 [facility] Hematocrit Auto (Bld) [Volum e fraction]Ordered By: Jonathan Dillard on 03-28-2023 Hematocrit (Bld) [Volume fraction] 34.0 % 37-47 [facility] - Hematology and Cell countsOrdered By: Jonathan Dillard on 03-28-2023 Erythrocyte distribution width (RBC) [Entitic vol] 54.0 fL 35.1-43.9 [facility] Erythrocyte distribution width (RBC) [Ratio] 14.7 % 11.6-14.6 [facility] MCH (RBC) [Entitic mass] 28.1 pg 27.0-32.0 [facility] MCHC Auto (RBC) [Mass/Vol]Or dered By: Jonathan Dillard on 03-28-2023 MCHC (RBC) [Mass/Vol] 27.9 g/dL 32-36 [facility] Platelets bldOrdered By: Mervat Dillard on 03-28-2023 Platelets (Bld) [#/Vol] 116 10*3/uL 150-450 [facility] Absolute lymphocyte countOrd ered By: Dr. Jeffries on 03-09-2023 Lymphocytes Auto (Unsp spec) [#/Vol] 0.69 10*3/uL 0.83-4.51 [facility] Basophil percentageOrdered B y: Dr. Jeffries on 03-09-2023 Basophil percentage 3.0 mg/dL 2.5-4.9 [facility] Basophils/100 WBC (Bld) 0.2 % 0-1 [facility] Eosinophils/100 WBC (Bld) 0.9 % 0-5 [facility] LDH [Catalytic activity/Vol] 131 U/L 84-246 [facility] Neutrophils (Bld) [#/Vol] 4.4 10*3/uL 2.0-7.7 [facility] Neutrophils/100 WBC (Bld) 80.2 % 47-70 [facility] WBC (Bld) [#/Vol] 5.5 10*3/uL 4.4-11.0 [facility] Blood erythrocytes count (nu mber/volume)Ordered By: Dr. Jeffries on 03-09-2023 RBC (Bld) [#/Vol] 3.49 10*6/uL 4.2-5.4 [facility] Blood hemoglobin measurement (mass/volume)Ordered By: Dr. Jeffries on 03-09-2023 Hemoglobin (Bld) [Mass/Vol] 9.6 g/dL 12.0-15.0 [facility] Blood lymphocytes/100 leukoc ytesOrdered By: Dr. Jeffries on 03-09-2023 Lymphocytes/100 WBC (Bld) 12.6 % 19-41 [facility] Blood monocytes/100 leukocyt esOrdered By: Dr. Jeffries on 03-09-2023 Monocytes/100 WBC (Bld) 5.7 % 0-10 [facility] Blood platelet mean volumeOr dered By: Dr. Jeffries on 03-09-2023 Platelet mean volume (Bld) [Entitic vol] 9.6 fL 6.2-12.0 [facility] Determination of erythrocyte mean corpuscular volume (MCV)Ordered By: Dr. Jeffries on 03-09-2023 MCV (RBC) [Entitic vol] 97.7 fL 81-99 [facility] Hematocrit Auto (Bld) [Volum e fraction]Ordered By: Dr. Jeffries on 03-09-2023 Hematocrit (Bld) [Volume fraction] 34.1 % 37-47 [facility] Iron measurement (mass/mass) Ordered By: Dr. Jeffries on 03-09-2023 Iron (Unsp spec) [Mass/Mass] 30 ug/dL 50-170 [facility] - Chemistry and C hemistry - challengeOrdered By: Dr. Jeffries on 03-09-2023 Cobalamin (Vitamin B12) [Mass/Vol] 669 pg/mL 211-911 [facility] Magnesium [Mass/Vol] 2.0 mg/dL 1.6-2.6 [facility] Laboratory - Hematology and Cell countsOrdered By: Dr. Jeffries on 03-09-2023 Erythrocyte distribution width (RBC) [Entitic vol] 52.1 fL 35.1-43.9 [facility] Erythrocyte distribution width (RBC) [Ratio] 14.6 % 11.6-14.6 [facility] Immature granulocytes/100 WBC (Bld) 0.400 % 0.0-0.9 [facility] Comment on above: IG% - Immature Granu locytes (promyelocytes, myelocytes and metamyelocytes) > 1% indicates that a LEFT SHIFT is Present. MCH (RBC) [Entitic mass] 27.5 pg 27.0-32.0 [facility] Nucleated RBC/100 WBC (Bld) [Ratio] 0 % 0-5 [facility] MCHC Auto (RBC) [Mass/Vol]Or dered By: Dr. Jeffries on 03-09-2023 MCHC (RBC) [Mass/Vol] 28.2 g/dL 32-36 [facility] No Panel InformationOrdered By: Dr. Jeffries on 03-09-2023 Total Iron Binding Capacity 196 ug/dL 250-450 [facility] Platelets bldOrdered By: Dr. Jeffries on 03-09-2023 Platelets (Bld) [#/Vol] 109 10*3/uL 150-450 [facility] Serum or plasma ferritin carter surement (mass/volume)Ordered By: Dr. Jeffries on 03-09-2023 Ferritin [Mass/Vol] 67 ng/mL 8-252 [facility] Serum or plasma iron saturat ion measurement (mass fraction)Ordered By: Dr. Jeffries on 03-09-2023 Iron saturation [Mass fraction] 15.3 % 15.0-55.0 [facility] No Panel InformationOrdered By: Jonathan Dillard on 03-08-2023 CA 125 Antigen 28.1 U/mL 0.0-38.1 [facility] Comment on above: [facility] El ectrochemiluminescence Immunoassay(ECLIA)Values obtained with different assay methods or kits cannotbe used interchangeably. Results cannot be interpreted asabsolute evidence of the presence or absence of malignantdisease.Performed at: [facility] [id number] Director: Mark Woo PhD, Phone: [phone] Basophil percentageOrdered B y: Jonathan Dillard on 03-04-2023 Chloride [Moles/Vol] 102 mmol/L 98-107 [facility] Glucose [Mass/Vol] 154 mg/dL 74-106 [facility] Comment on above: Fasting Glucose resu lt greater than or equal to 126 mg/dL suggests DIABETES MELLITUS per A.D.A. criteria. Potassium [Moles/Vol] 3.5 mmol/L 3.5-5.1 [facility] Sodium [Moles/Vol] 144 mmol/L 136-145 [facility] - Chemistry and C hemistry - challengeOrdered By: Jonathan Dillard on 03-04-2023 CO2 [Moles/Vol] 44.0 mmol/L 21.0-32.0 [facility] Urea nitrogen/Creatinine [Mass ratio] 29.9 mg/mg 10-20 [facility] No Panel InformationOrdered By: Jonathan Dillard on 03-04-2023 Estimated GFR (MDRD) Amer 111 mL/min >60 [facility] Comment on above: GFR Calc Estimated GFR (MDRD) Non-Af Amer 92 mL/min >60 [facility] Comment on above: Non- GFR Calc Serum or plasma calcium celina urement (mass/volume)Ordered By: Jonathan Dillard on 03-04-2023 Calcium [Mass/Vol] 9.0 mg/dL 8.5-10.1 [facility] Serum or plasma creatinine m easurement (mass/volume)Ordered By: Jonathan Dillard on 03-04-2023 Creatinine [Mass/Vol] 0.67 mg/dL 0.55-1.02 [facility] Comment on above: The validity of the calculated GFR & GFRAA in patients over 70 years has not been determined. Clinical correlation is essential. Serum or plasma urea nitroge n measurement (mass/volume)Ordered By: Jonathan Dillard on 03-04-2023 Urea nitrogen [Mass/Vol] 20 mg/dL 7-18 [facility] Thin prep Papanicolaou smear with manual screeningOrdered By: Jonathan Dillard on 03-04-2023 Thin prep Papanicolaou smear with manual screening -2 5-15 [facility] Basophil percentageOrdered B y: Jonathan Dillard on 02-28-2023 Chloride [Moles/Vol] 104 mmol/L 98-107 [facility] Glucose [Mass/Vol] 150 mg/dL 74-106 [facility] Comment on above: Fasting Glucose resu lt greater than or equal to 126 mg/dL suggests DIABETES MELLITUS per A.D.A. criteria. Potassium [Moles/Vol] 3.4 mmol/L 3.5-5.1 [facility] Sodium [Moles/Vol] 144 mmol/L 136-145 [facility] WBC (Bld) [#/Vol] 4.5 10*3/uL 4.4-11.0 [facility] Blood erythrocytes count (nu mber/volume)Ordered By: Jonathan Dillard on 02-28-2023 RBC (Bld) [#/Vol] 3.23 10*6/uL 4.2-5.4 [facility] Blood hemoglobin measurement (mass/volume)Ordered By: Jonathan Dillard on 02-28-2023 Hemoglobin (Bld) [Mass/Vol] 8.9 g/dL 12.0-15.0 [facility] Blood platelet mean volumeOr dered By: Jonathan Dillard on 02-28-2023 Platelet mean volume (Bld) [Entitic vol] 9.3 fL 6.2-12.0 [facility] Determination of erythrocyte mean corpuscular volume (MCV)Ordered By: Jonathan Dillard on 02-28-2023 MCV (RBC) [Entitic vol] 97.5 fL 81-99 [facility] Hematocrit Auto (Bld) [Volum e fraction]Ordered By: Jonathan Dillard on 02-28-2023 Hematocrit (Bld) [Volume fraction] 31.5 % 37-47 [facility] - Chemistry and C hemistry - challengeOrdered By: Jonathan Dillard on 02-28-2023 CO2 [Moles/Vol] 41.0 mmol/L 21.0-32.0 [facility] Urea nitrogen/Creatinine [Mass ratio] 26.5 mg/mg 10-20 [facility] - Hematology and Cell countsOrdered By: Jonathan Dillard on 02-28-2023 Erythrocyte distribution width (RBC) [Entitic vol] 51.0 fL 35.1-43.9 [facility] Erythrocyte distribution width (RBC) [Ratio] 14.2 % 11.6-14.6 [facility] MCH (RBC) [Entitic mass] 27.6 pg 27.0-32.0 [facility] MCHC Auto (RBC) [Mass/Vol]Or dered By: Jonathan Dillard on 02-28-2023 MCHC (RBC) [Mass/Vol] 28.3 g/dL 32-36 [facility] No Panel InformationOrdered By: Jonathan Dillard on 02-28-2023 Estimated GFR (MDRD) Amer 125 mL/min >60 [facility] Comment on above: GFR Calc Estimated GFR (MDRD) Non-Af Amer 104 mL/min >60 [facility] Comment on above: Non- GFR Calc Platelets bldOrdered By: Mervat Dillard on 02-28-2023 Platelets (Bld) [#/Vol] 130 10*3/uL 150-450 [facility] Serum or plasma calcium celina urement (mass/volume)Ordered By: Jonathan Dillard on 02-28-2023 Calcium [Mass/Vol] 8.9 mg/dL 8.5-10.1 [facility] Serum or plasma creatinine m easurement (mass/volume)Ordered By: Jonathan Dillard on 02-28-2023 Creatinine [Mass/Vol] 0.60 mg/dL 0.55-1.02 [facility] Comment on above: The validity of the calculated GFR & GFRAA in patients over 70 years has not been determined. Clinical correlation is essential. Serum or plasma urea nitroge n measurement (mass/volume)Ordered By: Jonathan Dillard on 02-28-2023 Urea nitrogen [Mass/Vol] 16 mg/dL 7-18 [facility] Thin prep Papanicolaou smear with manual screeningOrdered By: Jonathan Dillard on 02-28-2023 Thin prep Papanicolaou smear with manual screening -1 5-15 [facility] Absolute lymphocyte countOrd ered By: Dr. Jaime on 02-25-2023 Lymphocytes Auto (Unsp spec) [#/Vol] 0.74 10*3/uL 0.83-4.51 [facility] Basophil percentageOrdered B y: Dr. Jaime on 02-25-2023 Basophils/100 WBC (Bld) 0.2 % 0-1 [facility] Eosinophils/100 WBC (Bld) 1.2 % 0-5 [facility] Neutrophils (Bld) [#/Vol] 4.0 10*3/uL 2.0-7.7 [facility] Neutrophils/100 WBC (Bld) 79.1 % 47-70 [facility] WBC (Bld) [#/Vol] 5.1 10*3/uL 4.4-11.0 [facility] Bilirubin [Mass/Vol] 0.40 mg/dL 0.20-1.00 [facility] Comment on above: For patients on eltr ombopag therapy, use of Dimension Simpson TBIL is not recommended. Chloride [Moles/Vol] 106 mmol/L 98-107 [facility] Glucose [Mass/Vol] 106 mg/dL 74-106 [facility] Comment on above: Fasting Glucose resu lt from 100 to 125 mg/dL suggests IMPAIRED HOMEOSTASIS per A.D.A. criteria. Potassium [Moles/Vol] 4.3 mmol/L 3.5-5.1 [facility] Protein [Mass/Vol] 7.1 g/dL 6.4-8.2 [facility] Sodium [Moles/Vol] 142 mmol/L 136-145 [facility] Blood erythrocytes count (nu mber/volume)Ordered By: Dr. Jaime on 02-25-2023 RBC (Bld) [#/Vol] 3.46 10*6/uL 4.2-5.4 [facility] Blood hemoglobin measurement (mass/volume)Ordered By: Dr. Jaime on 02-25-2023 Hemoglobin (Bld) [Mass/Vol] 9.5 g/dL 12.0-15.0 [facility] Blood lymphocytes/100 leukoc ytesOrdered By: Dr. Jaime on 02-25-2023 Lymphocytes/100 WBC (Bld) 14.7 % 19-41 [facility] Blood monocytes/100 leukocyt esOrdered By: Dr. Jaime on 02-25-2023 Monocytes/100 WBC (Bld) 4.4 % 0-10 [facility] Blood platelet mean volumeOr dered By: Dr. Jaime on 02-25-2023 Platelet mean volume (Bld) [Entitic vol] 8.7 fL 6.2-12.0 [facility] COVID-19 virus antigen assay Ordered By: Dr. Jaime on 02-25-2023 SARS-CoV-2 (COVID-19) Ag IA.rapid Ql (Resp) [facility] Determination of erythrocyte mean corpuscular volume (MCV)Ordered By: Dr. Jaime on 02-25-2023 MCV (RBC) [Entitic vol] 98.3 fL 81-99 [facility] Hematocrit Auto (Bld) [Volum e fraction]Ordered By: Dr. Jaime on 02-25-2023 Hematocrit (Bld) [Volume fraction] 34.0 % 37-47 [facility] - Chemistry and C hemistry - challengeOrdered By: Dr. Jaime on 02-25-2023 ALP [Catalytic activity/Vol] 69 U/L 45-117 [facility] ALT [Catalytic activity/Vol] 23 U/L 13-56 [facility] CO2 [Moles/Vol] 34.0 mmol/L 21.0-32.0 [facility] Globulin (S) [Mass/Vol] 4.5 g/dL 2.2-4.2 [facility] Urea nitrogen/Creatinine [Mass ratio] 27.0 mg/mg 10-20 [facility] - Hematology and Cell countsOrdered By: Dr. Jaime on 02-25-2023 Erythrocyte distribution width (RBC) [Entitic vol] 52.0 fL 35.1-43.9 [facility] Erythrocyte distribution width (RBC) [Ratio] 14.5 % 11.6-14.6 [facility] Immature granulocytes/100 WBC (Bld) 0.400 % 0.0-0.9 [facility] Comment on above: IG% - Immature Granu locytes (promyelocytes, myelocytes and metamyelocytes) > 1% indicates that a LEFT SHIFT is Present. MCH (RBC) [Entitic mass] 27.5 pg 27.0-32.0 [facility] Nucleated RBC/100 WBC (Bld) [Ratio] 0 % 0-5 [facility] - Microbiology an d Antimicrobial susceptibilityOrdered By: Dr. Monique on 02-25-2023 Bacteria identified Cx Nom (Bld) No growth in 5 days. [facility] MCHC Auto (RBC) [Mass/Vol]Or dered By: Dr. Jaime on 02-25-2023 MCHC (RBC) [Mass/Vol] 27.9 g/dL 32-36 [facility] No Panel InformationOrdered By: Dr. Jaime on 02-25-2023 Estimated Creatinine Clearance Calc 53.04 ml/min [facility] Estimated GFR (MDRD) Amer 84 mL/min >60 [facility] Comment on above: GFR Calc Estimated GFR (MDRD) Non-Af Amer 69 mL/min >60 [facility] Comment on above: Non- GFR Calc Platelets bldOrdered By: Dr. Jaime on 02-25-2023 Platelets (Bld) [#/Vol] 146 10*3/uL 150-450 [facility] Serum or plasma albumin celina urement (mass/volume)Ordered By: Dr. Jaime on 02-25-2023 Albumin [Mass/Vol] 2.6 g/dL 3.2-5.0 [facility] Serum or plasma albumin/glob ulin mass ratioOrdered By: Dr. Jaime on 02-25-2023 Albumin/Globulin [Mass ratio] 0.6 {ratio} 0.9-2.4 [facility] Serum or plasma calcium celina urement (mass/volume)Ordered By: Dr. Jaime on 02-25-2023 Calcium [Mass/Vol] 8.7 mg/dL 8.5-10.1 [facility] Serum or plasma creatinine m easurement (mass/volume)Ordered By: Dr. Jaime on 02-25-2023 Creatinine [Mass/Vol] 0.85 mg/dL 0.55-1.02 [facility] Comment on above: The validity of the calculated GFR & GFRAA in patients over 70 years has not been determined. Clinical correlation is essential. Serum or plasma urea nitroge n measurement (mass/volume)Ordered By: Dr. Jaime on 02-25-2023 Urea nitrogen [Mass/Vol] 23 mg/dL 7-18 [facility] Thin prep Papanicolaou smear with manual screeningOrdered By: Dr. Jaime on 02-25-2023 Thin prep Papanicolaou smear with manual screening 20 U/L 15-37 [facility] Thin prep Papanicolaou smear with manual screening 2 5-15 [facility] Glucose Glucometer (BldC) [M ass/Vol]Ordered By: Dr. Jaime on 02-23-2023 Glucose [Mass/Vol] 136 mg/dL 74-106 [facility] Comment on above: MANAGEMENT OF PATIEN T CARE PER NURSING PROTOCOL Blood manual differential co mment interpretation (narrative result)Ordered By: Dr. Jaime on 02-22-2023 Manual differential comment Ajit (Bld) [Interp] SCANNED [facility] Comment on above: LYMPHOPENIA Clostridium difficile detect ion by polymerase chain reactionOrdered By: Dr. Banks on 02-22-2023 C. difficile DNA ISA+probe Ql (Unsp spec) [facility] Base excessOrdered By: Dr. Joshua greenfield on 02-21-2023 Base excess Calc (BldV) [Moles/Vol] 12 mmol/L -2-2 [facility] Basophil percentageOrdered B y: Dr. Jaime on 02-21-2023 Basophil percentage 36.1 mmol/L 22-26 [facility] Basophils/100 WBC (Bld) 98 % 95-99 [facility] Blood platelet adequacy dete ction by light microscopyOrdered By: Dr. Padron on 02-21-2023 Platelets LM Ql (Bld) SLT DEC ADEQ [facility] CO2 (BldA) [Partial pressure ]Ordered By: Dr. Jaime on 02-21-2023 CO2 (Bld) [Partial pressure] 52.0 mm[Hg] 35-45 [facility] Culture, urineOrdered By: Dr Che Monique on 02-21-2023 Bacteria identified Cx Nom (U) Culture exhibits no growth. [facility] No Panel InformationOrdered By: Dr. Jaime on 02-21-2023 Bedside Blood Gas PEEP 7 [facility] Bedside Blood Gas Pressure Support 7 [facility] Blood Gas Oxygen Percent 50 [facility] Blood Gas Sample Site R [facility] Blood Gas Specimen Type ART [facility] Blood Gas Total CO2 38 mmol/L [facility] Blood Gas Vent Mode CPAP/PS [facility] Oxygen (BldA) [Partial press ure]Ordered By: Dr. Jaime on 02-21-2023 Oxygen (Bld) [Partial pressure] 99 mmHG 75-100 [facility] Review by pathologistOrdered By: Dr. Padron on 02-21-2023 Pathologist review Ajit (Unsp spec) [Interp] Reviewed [facility] Comment on above: Previous reported re sult: March bernarda Edited by: RGOOD on 02/23/23:1043Pancytopenia.Leukopenia Normocytic anemia.Mild ThrombocytopeniaClinical correlation necessary.Blas Carrillo M.D. 02/23/23 AMENDED REPORT 02/23/23 1043 PATH REV previously reported as: Uyen menchaca Vancomycin troughOrdered By: Dr. Padron on 02-21-2023 Vancomycin trough [Mass/Vol] 25.5 ug/mL 5.0-15.0 [facility] Comment on above: VANCOMYCIN STANDARED DRUG THERAPY TROUGH LEVEL: 5.0 - 15.0 mg/L VANCOMYCIN HIGH INTENSITY THERAPY TROUGH LEVEL: 15.0 - 20.0 mg/L High Intensity therapy recommended for serious lifethreatening infections include:- Xrjjxtlkkt-Htaceuebmfkn-Rwjmfbgdh (Ventilator/Healtcare Associated)-Sepsis PLEASE CONTACT PHARMACY SERVICES (#[id number]) FOR INTERPRETATIONOF RESULTS. pH measurementOrdered By: Dr Che Jaime on 02-21-2023 pH (Unsp spec) 7.45 [pH] 7.35-7.45 [facility] Assessment of wrist artery p atency prior to arterial punctureOrdered By: Dr. Padron on 02-20-2023 Arterial patency Wrist artery --pre arterial puncture Positive [facility] Basophil percentageOrdered B y: Dr. Monique on 02-20-2023 Triglyceride [Mass/Vol] 141 mg/dL <199 [facility] Comment on above: The drugs N-Acetylcy steine and Metamizole may falsely depress this assay.Serum Triglycerides Reference Interval Normal <150 mg/dL Borderline high 150 - 199 mg/dL High 200 - 499 mg/dL Very High > or = 500 mg/dL Laboratory - Chemistry and C hemistry - challengeOrdered By: Dr. Monique on 02-20-2023 CK [Catalytic activity/Vol] 26 U/L 26-192 [facility] No Panel InformationOrdered By: Dr. Padron on 02-20-2023 Blood Gas Respiration Rate 15 [facility] Oxygen Delivery Device Adult Vent [facility] Basophil percentageOrdered B y: Dr. Padron on 02-19-2023 Basophil percentage 3.6 mg/dL 2.5-4.9 [facility] Laboratory - Chemistry and C hemistry - challengeOrdered By: Dr. Padron on 02-19-2023 Magnesium [Mass/Vol] 2.0 mg/dL 1.6-2.6 [facility] No Panel InformationOrdered By: Dr. Padron on 02-19-2023 Bld Gas Crit Called To/Read Back By Yes [facility] Blood Gas Notified Amanda MONIQUE [facility] Blood Gas Tidal Volume 325 [facility] Laboratory - Hematology and Cell countsOrdered By: Dr. Resendiz on 02-18-2023 Anisocytosis Ql (Bld) 1+ [facility] No Panel InformationOrdered By: Dr. Padron on 02-18-2023 Blood Gas Notified Time 1716 [facility] No Panel InformationOrdered By: Dr. Monique on 02-18-2023 Miscellaneous Test See comment [facility] Comment on above: TEST RESULT LIMITSRe spiratory [...] Detected Not Detected __ TESTING PERFORMED AT [facility]. ORIGINAL REPORT ON FILE IN LAB CONTAINS ADDITIONAL TEST SITE INFORMATION. No Panel InformationOrdered By: Dr. Resendiz on 02-18-2023 Thyroid Stimulating Hormone (TSH) 0.74 uIU/mL 0.358-3.74 [facility] Methicillin-Resist S.aureus DNA PCR Positive Negative [facility] Serum procalcitonin measurem entOrdered By: Dr. Resendiz on 02-18-2023 Procalcitonin [Mass/Vol] 0.13 ng/mL 0.00-0.09 [facility] Comment on above: A procalcitonin (PCT ) [...] Auto (Unsp spec) [#/Vol] 0.69 10*3/uL 0.83-4.51 [facility] Assessment of wrist artery p atency prior to arterial punctureOrdered By: Dr. Resendiz on 02-17-2023 Arterial patency Wrist artery --pre arterial puncture Positive [facility] Base excessOrdered By: Dr. Deepika hernandez on 02-17-2023 Base excess Calc (BldV) [Moles/Vol] 26 mmol/L -2-2 [facility] Basophil percentageOrdered B y: Dr. Resendiz on 02-17-2023 Basophil percentage 51.8 mmol/L 22-26 [facility] Basophils/100 WBC (Bld) 88 % 95-99 [facility] Basophil percentageOrdered B y: Dr. Tsai on 02-17-2023 Basophil percentage 0 SEEN /hpf 0-5 [facility] Basophils/100 WBC (Bld) 0.4 % 0-1 [facility] Bilirubin [Mass/Vol] 0.50 mg/dL 0.20-1.00 [facility] Comment on above: For patients on eltr ombopag therapy, use of Dimension Simpson TBIL is not recommended. Chloride [Moles/Vol] 102 mmol/L 98-107 [facility] Eosinophils/100 WBC (Bld) 0.2 % 0-5 [facility] Glucose [Mass/Vol] 238 mg/dL 74-106 [facility] Comment on above: Glucose result great er than or equal to 200 mg/dLsuggests DIABETES MELLITUS per A.D.A. criteria. Neutrophils (Bld) [#/Vol] 9.1 10*3/uL 2.0-7.7 [facility] Neutrophils/100 WBC (Bld) 87.0 % 47-70 [facility] Potassium [Moles/Vol] 4.1 mmol/L 3.5-5.1 [facility] Protein [Mass/Vol] 7.6 g/dL 6.4-8.2 [facility] Sodium [Moles/Vol] 145 mmol/L 136-145 [facility] WBC (Bld) [#/Vol] 10.5 10*3/uL 4.4-11.0 [facility] Bilirubin Test strip Ql (U)O rdered By: Dr. Tsai on 02-17-2023 Bilirubin Ql (U) Negative Negative [facility] Blood erythrocytes count (nu mber/volume)Ordered By: Dr. Tsai on 02-17-2023 RBC (Bld) [#/Vol] 3.69 10*6/uL 4.2-5.4 [facility] Blood hemoglobin measurement (mass/volume)Ordered By: Dr. Tsai on 02-17-2023 Hemoglobin (Bld) [Mass/Vol] 10.1 g/dL 12.0-15.0 [facility] Blood lymphocytes/100 leukoc ytesOrdered By: Dr. Tsai on 02-17-2023 Lymphocytes/100 WBC (Bld) 6.6 % 19-41 [facility] Blood monocytes/100 leukocyt esOrdered By: Dr. Tsai on 02-17-2023 Monocytes/100 WBC (Bld) 3.6 % 0-10 [facility] Blood platelet mean volumeOr dered By: Dr. Tsai on 02-17-2023 Platelet mean volume (Bld) [Entitic vol] 8.4 fL 6.2-12.0 [facility] CO2 (BldA) [Partial pressure ]Ordered By: Dr. Resendiz on 02-17-2023 CO2 (Bld) [Partial pressure] 96.6 mm[Hg] 35-45 [facility] Determination of erythrocyte mean corpuscular volume (MCV)Ordered By: Dr. Tsai on 02-17-2023 MCV (RBC) [Entitic vol] 101.1 fL 81-99 [facility] Hematocrit Auto (Bld) [Volum e fraction]Ordered By: Dr. Tsai on 02-17-2023 Hematocrit (Bld) [Volume fraction] 37.3 % 37-47 [facility] Hyaline casts LM.LPF (Urine sed) [#/Area]Ordered By: Dr. Tsai on 02-17-2023 Hyaline casts (Urine sed) [#/Area] 0 /[LPF] 0-5 [facility] Ketones Test strip Ql (U)Ord ered By: Dr. Tsai on 02-17-2023 Ketones Ql (U) Negative Negative [facility] Laboratory - Chemistry and C hemistry - challengeOrdered By: Dr. Tsai on 02-17-2023 ALP [Catalytic activity/Vol] 99 U/L 45-117 [facility] ALT [Catalytic activity/Vol] 26 U/L 13-56 [facility] CO2 [Moles/Vol] 45.0 mmol/L 21.0-32.0 [facility] Globulin (S) [Mass/Vol] 4.7 g/dL 2.2-4.2 [facility] Urea nitrogen/Creatinine [Mass ratio] 36.2 mg/mg 10-20 [facility] Laboratory - Chemistry and C hemistry - challengeOrdered By: Dr. Resendiz on 02-17-2023 Natriuretic peptide B (Bld) [Mass/Vol] 132.9 pg/mL 0-100 [facility] Laboratory - Drug toxicology Ordered By: Dr. Tsai on 02-17-2023 Amphetamines Ql (U) Negative <1000 ng/mL [facility] Benzodiazepines Ql (U) Negative < 200 ng/mL [facility] Cannabinoids Screen Ql (U) Negative < 50 ng/mL [facility] Cocaine Ql (U) Negative < 300 ng/mL [facility] Opiates Ql (U) Negative < 300 ng/mL [facility] Laboratory - Hematology and Cell countsOrdered By: Dr. Tsai on 02-17-2023 Erythrocyte distribution width (RBC) [Entitic vol] 55.7 fL 35.1-43.9 [facility] Erythrocyte distribution width (RBC) [Ratio] 15.0 % 11.6-14.6 [facility] Immature granulocytes/100 WBC (Bld) 2.200 % 0.0-0.9 [facility] Comment on above: IG% - Immature Granu locytes (promyelocytes, myelocytes and metamyelocytes) > 1% indicates that a LEFT SHIFT is Present. MCH (RBC) [Entitic mass] 27.4 pg 27.0-32.0 [facility] Nucleated RBC/100 WBC (Bld) [Ratio] 0.2 % 0-5 [facility] MCHC Auto (RBC) [Mass/Vol]Or dered By: Dr. Tsai on 02-17-2023 MCHC (RBC) [Mass/Vol] 27.1 g/dL 32-36 [facility] Mucus LM Ql (Urine sed)Order ed By: Dr. Tsai on 02-17-2023 Mucus Ql (Urine sed) 0 SEEN /hpf [facility] Nitrite Test strip Ql (U)Ord ered By: Dr. Tsai on 02-17-2023 Nitrite Ql (U) Negative Negative [facility] No Panel InformationOrdered By: Dr. Resendiz on 02-17-2023 Bedside Blood Gas PEEP 5 [facility] Bld Gas Crit Called To/Read Back By Yes [facility] Blood Gas Notified Time 2245 [facility] Blood Gas Notified Whom ED [facility] Blood Gas Oxygen Percent 60 [facility] Blood Gas Respiration Rate 16 [facility] Blood Gas Sample Site L RADIAL [facility] Blood Gas Specimen Type ART [facility] Blood Gas Tidal Volume 450 [facility] Blood Gas Total CO2 > 50 mmol/L [facility] Blood Gas Vent Mode AC/VC [facility] Oxygen Delivery Device Vent [facility] No Panel InformationOrdered By: Dr. Tsai on 02-17-2023 Ethyl Alcohol Level < 3.0 mg/dL [facility] Comment on above: The serum:whole bloo d ethanol ratio is approximately 1.14and varies slightly with hematocrit. Medical Alcohol reference interval and critical value innon-tolerant individuals; 50 - 100 Impairment 100 Intoxication 100 - 250 Severe Poisoning 250 - 400 Deep/possible fatal coma MDMA (Ecstasy) Screen Negative < 500 ng/mL [facility] Urine Barbiturates Screen Negative < 200 ng/mL [facility] Urine Drug Screen Comment [facility] Comment on above: CONFIRMATORY TESTING FOR ALL [...] Methadone Screen Negative < 300 ng/mL [facility] Estimated Creatinine Clearance Calc 45.09 ml/min [facility] Estimated GFR (MDRD) Amer 118 mL/min >60 [facility] Comment on above: GFR Calc Estimated GFR (MDRD) Non-Af Amer 98 mL/min >60 [facility] Comment on above: Non- GFR Calc Troponin I High Sensitivity 13 pg/mL 3.0-54.0 [facility] Comment on above: Please Note: New Rosalie t Units and Gender Specific Reference Ranges. For more information see Policy Stat Procedure Simpson High Sensitivity Troponin (TNIH) and attachments. Oxygen (BldA) [Partial press ure]Ordered By: Dr. Resendiz on 02-17-2023 Oxygen (Bld) [Partial pressure] 64 mmHG 75-100 [facility] Platelets bldOrdered By: Dr. Tsai on 02-17-2023 Platelets (Bld) [#/Vol] 163 10*3/uL 150-450 [facility] Protein Test strip Ql (U)Ord ered By: Dr. Tsai on 02-17-2023 Protein Ql (U) 100 mg/dl Negative [facility] Serum or plasma albumin celina urement (mass/volume)Ordered By: Dr. Tsai on 02-17-2023 Albumin [Mass/Vol] 2.9 g/dL 3.2-5.0 [facility] Serum or plasma albumin/glob ulin mass ratioOrdered By: Dr. Tsai on 02-17-2023 Albumin/Globulin [Mass ratio] 0.6 {ratio} 0.9-2.4 [facility] Serum or plasma calcium celina urement (mass/volume)Ordered By: Dr. Tsai on 02-17-2023 Calcium [Mass/Vol] 8.9 mg/dL 8.5-10.1 [facility] Serum or plasma creatinine m easurement (mass/volume)Ordered By: Dr. Tsai on 02-17-2023 Creatinine [Mass/Vol] 0.64 mg/dL 0.55-1.02 [facility] Comment on above: The validity of the calculated GFR & GFRAA in patients over 70 years has not been determined. Clinical correlation is essential. Serum or plasma urea nitroge n measurement (mass/volume)Ordered By: Dr. Tsai on 02-17-2023 Urea nitrogen [Mass/Vol] 23 mg/dL 7-18 [facility] Squamous epithelial cells de tection in urine sediment by light microscopyOrdered By: Dr. Tsai on 02-17-2023 Epithelial cells.squamous LM Ql (Urine sed) 0-5 SEEN /hpf 5-10 [facility] Thin prep Papanicolaou smear with manual screeningOrdered By: Dr. Tsai on 02-17-2023 Thin prep Papanicolaou smear with manual screening 21 U/L 15-37 [facility] Thin prep Papanicolaou smear with manual screening -2 5-15 [facility] Urine blood detectionOrdered By: Dr. Tsai on 02-17-2023 RBC Ql (U) 25 /ul Negative [facility] RBC Ql (U) 0-5 SEEN /hpf 0-5 [facility] Urine clarityOrdered By: Dr. Tsai on 02-17-2023 Clarity (U) Sl. Cloudy Clear [facility] Urine coarse granular cast d etectionOrdered By: Dr. Tsai on 02-17-2023 Coarse Granular Casts LM Ql (Urine sed) 0-5 SEEN /lpf 0-5 /lpf [facility] Urine color determinationOrd ered By: Dr. Tsai on 02-17-2023 Color (U) Yellow Yellow [facility] Urine glucose detectionOrder ed By: Dr. Tsai on 02-17-2023 Glucose Ql (U) Normal mg/dl Normal [facility] Urine leukocyte esterase det ection by dipstickOrdered By: Dr. Tsai on 02-17-2023 Leukocyte esterase Test strip Ql (U) Negative Negative [facility] Urine pHOrdered By: Dr. Paul kohli on 02-17-2023 pH (U) 5.0 [pH] 5.0 - 8.0 [facility] Urine phencyclidine (PCP) de tectionOrdered By: Dr. Tsai on 02-17-2023 Phencyclidine Ql (U) Negative < 25 ng/mL [facility] Urine sediment bacteria coun t by microscopy (number/high power field)Ordered By: Dr. Tsai on 02-17-2023 Bacteria LM.HPF (Urine sed) [#/Area] 0 /[HPF] None Seen [facility] Urine specific gravity measu rementOrdered By: Dr. Tsai on 02-17-2023 Specific gravity (U) [Rel density] 1.030 1.002-1.030 [facility] Urobilinogen Auto test strip Ql (U)Ordered By: Dr. Tsai on 02-17-2023 Urobilinogen Ql (U) Normal mg/dl Normal [facility] pH measurementOrdered By: Dr Che Resendiz on 02-17-2023 pH (Unsp spec) 7.34 [pH] 7.35-7.45 [facility] No Panel InformationOrdered By: Jonathan Dillard on 02-07-2023 Miscellaneous Test See comment [facility] Comment on above: TEST RESULTS LIMITSS ARS-CoV-2, [id number]-BmL-6, ISA Not Detected Not DetectedThis nucleic acid amplification test was developed and its performance characteristics determined by [employer]. Nucleic acid amplification tests include RT-PCR and [...] result in this assay. TESTING PERFORMED AT [facility]. ORIGINAL REPORT ON FILE IN LAB CONTAINS ADDITIONAL TEST SITE INFORMATION. Absolute lymphocyte countOrd ered By: Dr. Jeffries on 01-11-2023 Lymphocytes Auto (Unsp spec) [#/Vol] 0.59 10*3/uL 0.83-4.51 [facility] Basophil percentageOrdered B y: Dr. Jeffries on 01-11-2023 Basophils/100 WBC (Bld) 0.2 % 0-1 [facility] Bilirubin [Mass/Vol] 0.50 mg/dL 0.20-1.00 [facility] Comment on above: For patients on eltr ombopag therapy, use of Dimension Simpson TBIL is not recommended. Chloride [Moles/Vol] 99 mmol/L 98-107 [facility] Eosinophils/100 WBC (Bld) 1.1 % 0-5 [facility] Glucose [Mass/Vol] 124 mg/dL 74-106 [facility] Comment on above: Fasting Glucose resu lt from 100 to 125 mg/dL suggests IMPAIRED HOMEOSTASIS per A.D.A. criteria. LDH [Catalytic activity/Vol] 147 U/L 84-246 [facility] Neutrophils (Bld) [#/Vol] 4.4 10*3/uL 2.0-7.7 [facility] Neutrophils/100 WBC (Bld) 81.5 % 47-70 [facility] Potassium [Moles/Vol] 4.2 mmol/L 3.5-5.1 [facility] Protein [Mass/Vol] 7.1 g/dL 6.4-8.2 [facility] Sodium [Moles/Vol] 146 mmol/L 136-145 [facility] WBC (Bld) [#/Vol] 5.4 10*3/uL 4.4-11.0 [facility] Blood erythrocytes count (nu mber/volume)Ordered By: Dr. Jeffries on 01-11-2023 RBC (Bld) [#/Vol] 3.43 10*6/uL 4.2-5.4 [facility] Blood hemoglobin measurement (mass/volume)Ordered By: Dr. Jeffries on 01-11-2023 Hemoglobin (Bld) [Mass/Vol] 9.7 g/dL 12.0-15.0 [facility] Blood lymphocytes/100 leukoc ytesOrdered By: Dr. Jeffries on 01-11-2023 Lymphocytes/100 WBC (Bld) 11.0 % 19-41 [facility] Blood manual differential co mment interpretation (narrative result)Ordered By: Dr. Jeffries on 01-11-2023 Manual differential comment Ajit (Bld) [Interp] SCANNED [facility] Blood monocytes/100 leukocyt esOrdered By: Dr. Jeffries on 01-11-2023 Monocytes/100 WBC (Bld) 5.6 % 0-10 [facility] Blood platelet mean volumeOr dered By: Dr. Jeffries on 01-11-2023 Platelet mean volume (Bld) [Entitic vol] 8.4 fL 6.2-12.0 [facility] Determination of erythrocyte mean corpuscular volume (MCV)Ordered By: Dr. Jeffries on 01-11-2023 MCV (RBC) [Entitic vol] 97.4 fL 81-99 [facility] Hematocrit Auto (Bld) [Volum e fraction]Ordered By: Dr. Jeffries on 01-11-2023 Hematocrit (Bld) [Volume fraction] 33.4 % 37-47 [facility] Hemoglobin in reticulocytes (mass per reticulocyte)Ordered By: Dr. Jeffries on 01-11-2023 Hemoglobin (Reticulocytes) [Entitic mass] 24.6 pg 30-35 [facility] Hypochromatic red blood cell detectionOrdered By: Dr. Jeffries on 01-11-2023 Hypochromia Ql (Bld) 2+ [facility] Iron measurement (mass/mass) Ordered By: Dr. Jeffries on 01-11-2023 Iron (Unsp spec) [Mass/Mass] 35 ug/dL 50-170 [facility] Laboratory - Chemistry and C hemistry - challengeOrdered By: Dr. Jeffries on 01-11-2023 ALP [Catalytic activity/Vol] 81 U/L 45-117 [facility] ALT [Catalytic activity/Vol] 15 U/L 13-56 [facility] CO2 [Moles/Vol] 43.0 mmol/L 21.0-32.0 [facility] Cobalamin (Vitamin B12) [Mass/Vol] 561 pg/mL 211-911 [facility] Globulin (S) [Mass/Vol] 3.9 g/dL 2.2-4.2 [facility] Urea nitrogen/Creatinine [Mass ratio] 22.3 mg/mg 10-20 [facility] Laboratory - Hematology and Cell countsOrdered By: Dr. Jeffries on 01-11-2023 Erythrocyte distribution width (RBC) [Entitic vol] 51.6 fL 35.1-43.9 [facility] Erythrocyte distribution width (RBC) [Ratio] 14.5 % 11.6-14.6 [facility] Immature granulocytes/100 WBC (Bld) 0.600 % 0.0-0.9 [facility] Comment on above: IG% - Immature Granu locytes (promyelocytes, myelocytes and metamyelocytes) > 1% indicates that a LEFT SHIFT is Present. MCH (RBC) [Entitic mass] 28.3 pg 27.0-32.0 [facility] Nucleated RBC/100 WBC (Bld) [Ratio] 0 % 0-5 [facility] MCHC Auto (RBC) [Mass/Vol]Or dered By: Dr. Jeffries on 01-11-2023 MCHC (RBC) [Mass/Vol] 29.0 g/dL 32-36 [facility] No Panel InformationOrdered By: Dr. Jeffries on 01-11-2023 Estimated GFR (MDRD) Amer 102 mL/min >60 [facility] Comment on above: GFR Calc Estimated GFR (MDRD) Non-Af Amer 85 mL/min >60 [facility] Comment on above: Non- GFR Calc Immature Platelet Fraction 1.3 % 1.0-7.9 [facility] Comment on above: Low PLT + Low IPF faust ggest a bone marrow production disorderLow PLT + high IPF suggests peripheral destruction(e.g.ITP, TTP, HIT, DIC, autoimmune) or bone marrow recoveryTrending of serial IPF measurements is recommended when evaluating for bone marrow responesValue above normal range indicates an increase in RBC cellular response from bone marrow. Immature Reticulocyte Fraction 23.00 % 3.00-15.90 [facility] Reticulocyte Count 2.53 % 0.5-1.5 [facility] Total Iron Binding Capacity 186 ug/dL 250-450 [facility] Platelets bldOrdered By: Dr. Jeffries on 01-11-2023 Platelets (Bld) [#/Vol] 138 10*3/uL 150-450 [facility] Serum or plasma albumin celina urement (mass/volume)Ordered By: Dr. Jeffries on 01-11-2023 Albumin [Mass/Vol] 3.2 g/dL 3.2-5.0 [facility] Serum or plasma albumin/glob ulin mass ratioOrdered By: Dr. Jeffries on 01-11-2023 Albumin/Globulin [Mass ratio] 0.8 {ratio} 0.9-2.4 [facility] Serum or plasma calcium celina urement (mass/volume)Ordered By: Dr. Jeffries on 01-11-2023 Calcium [Mass/Vol] 9.1 mg/dL 8.5-10.1 [facility] Serum or plasma creatinine m easurement (mass/volume)Ordered By: Dr. Jeffries on 01-11-2023 Creatinine [Mass/Vol] 0.72 mg/dL 0.55-1.02 [facility] Comment on above: The validity of the calculated GFR & GFRAA in patients over 70 years has not been determined. Clinical correlation is essential. Serum or plasma ferritin carter surement (mass/volume)Ordered By: Dr. Jeffries on 01-11-2023 Ferritin [Mass/Vol] 55 ng/mL 8-252 [facility] Serum or plasma folate measu rement (mass/volume)Ordered By: Dr. Jeffries on 01-11-2023 Folate [Mass/Vol] 73.30 ng/mL 3.1-55.4 [facility] Serum or plasma iron saturat ion measurement (mass fraction)Ordered By: Dr. Jeffries on 01-11-2023 Iron saturation [Mass fraction] 18.8 % 15.0-55.0 [facility] Serum or plasma urea nitroge n measurement (mass/volume)Ordered By: Dr. Jeffries on 01-11-2023 Urea nitrogen [Mass/Vol] 16 mg/dL 7-18 [facility] Thin prep Papanicolaou smear with manual screeningOrdered By: Dr. Jeffries on 01-11-2023 Thin prep Papanicolaou smear with manual screening 14 U/L 15-37 [facility] Thin prep Papanicolaou smear with manual screening 4 5-15 [facility] Progress Noteon 11-02-2022 Progress Note Obese hypertensive [...] pancytopenia. 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 and underwent a bone [...] Stable, follow-up with surgery as discussed Normal [facility] Basophil percentageOrdered B y: Stef Villegas on 11-01-2022 WBC (Bld) [#/Vol] 4.9 10*3/uL 4.4-11.0 [facility] Blood erythrocytes count (nu mber/volume)Ordered By: Stef Villegas on 11-01-2022 RBC (Bld) [#/Vol] 3.26 10*6[facility] hemoglobin measurement (mass/volume)Ordered By: Stef Villegas on 11-01-2022 Hemoglobin (Bld) [Mass/Vol] 8.9 g/dL 12.0-15.0 [facility] Blood platelet mean volumeOr dered By: Stef Villegas on 11-01-2022 Platelet mean volume (Bld) [Entitic vol] 10.0 fL 6.2-12.0 [facility] Determination of erythrocyte mean corpuscular volume (MCV)Ordered By: Stef Villegas on 11-01-2022 MCV (RBC) [Entitic vol] 96.0 fL 81-99 [facility] Hematocrit Auto (Bld) [Volum e fraction]Ordered By: Stef Villegas on 11-01-2022 Hematocrit (Bld) [Volume fraction] 31.3 % 37-47 [facility] Iron measurement (mass/mass) Ordered By: Stef Villegas on 11-01-2022 Iron (Unsp spec) [Mass/Mass] 29 ug/dL 50-170 [facility] Laboratory - Chemistry and C hemistry - challengeOrdered By: Stef Villegas on 11-01-2022 Cobalamin (Vitamin B12) [Mass/Vol] 208 pg/mL 211-911 [facility] Laboratory - Hematology and Cell countsOrdered By: Stef Villegas on 11-01-2022 Erythrocyte distribution width (RBC) [Entitic vol] 49.5 fL 35.1-43.9 [facility] Erythrocyte distribution width (RBC) [Ratio] 14.2 % 11.6-14.6 [facility] MCH (RBC) [Entitic mass] 27.3 pg 27.0-32.0 [facility] MCHC Auto (RBC) [Mass/Vol]Or dered By: Stef Villegas on 11-01-2022 MCHC (RBC) [Mass/Vol] 28.4 g/dL 32-36 [facility] No Panel InformationOrdered By: Stef Villegas on 11-01-2022 Total Iron Binding Capacity 212 ug/dL 250-450 [facility] Platelets bldOrdered By: Elida Villegas on 11-01-2022 Platelets (Bld) [#/Vol] 94 10*3/uL 150-450 [facility] Comment on above: PREVIOUS RESULTS <10 0. Serum or plasma ferritin carter surement (mass/volume)Ordered By: Stef Villegas on 11-01-2022 Ferritin [Mass/Vol] 45 ng/mL 8-252 [facility] Serum or plasma folate measu rement (mass/volume)Ordered By: Stef Bakari on 11-01-2022 Folate [Mass/Vol] 6.00 ng/mL 3.1-55.4 [facility] Serum or plasma iron saturat ion measurement (mass fraction)Ordered By: Stef Bakari on 11-01-2022 Iron saturation [Mass fraction] 13.7 % 15.0-55.[address] [facility] [address] SPINE CERVICAL W/O CONTRA STon 10-30-2022 [...] Date: 10/30/2022 12:08:00 PM Ordering Provider: TRACE MATTHEWS [facility] ([place]) Progress Noteon 10-20-2022 Progress Note Well-controlled hypertensive [...] discussed discharge status with nursing and social media assistant is looking into assisted living facility placement in the near future. Normal [facility] XR SPINE CERVICAL AP/LAT/FLE X/EXTon 10-06-2022 [...] by: Richar Hassan MD Preliminary Report By: Richra Hassan MD Electronically signed By Richar Hassan MD Dictated Date: 10/06/2022 11:44:38 AM Prelim Date: 10/06/2022 11:46:14 AM Sign Date: 10/06/2022 11:46:14 AM Ordering Provider: [facility]) XR SPINE THORACIC 2 VIEWSon 10-06-2022 XR [...] Sign Date: 10/06/2022 11:47:34 AM Ordering Provider: [facility]) Basophil percentageon 2021 Basophil percentage 0 SEEN [facility]: Bilirubin Test strip Ql (U)o n 10-05-2022 Bilirubin Ql (U) Negative Negative [facility] Work Phone: Ketones Test strip Ql (U)on 10-05-2022 Ketones Ql (U) Negative Negative [facility] Work Phone: Mucus LM Ql (Urine sed)on Mucus Ql (Urine sed) 0 SEEN /hpf [facility] Work Phone: Nitrite Test strip Ql (U)on 10-05-2022 Nitrite Ql (U) Negative Negative [facility] Work Phone: Protein Test strip Ql (U)on 10-05-2022 Protein Ql (U) Negative Negative [facility] Work Phone: Squamous epithelial cells de tection in urine sediment by light microscopyon 10-05-2022 Epithelial cells.squamous LM Ql (Urine sed) 0 SEEN /hpf 5-10 [facility] Work Phone: Urine blood detectionon 09-15 RBC Ql (U) Negative Negative [facility] Work Phone: RBC Ql (U) 0 SEEN /hpf 0-5 [facility] Work Phone: Urine clarityon 10-05-2022 Clarity (U) Clear Clear [facility] Work Phone: Urine color determinationon 10-05-2022 Color (U) Yellow Yellow [facility] Work Phone: Urine glucose detectionon Glucose Ql (U) Normal mg/dl Normal [facility] Work Phone: Urine leukocyte esterase det ection by dipstickon 10-05-2022 Leukocyte esterase Test strip Ql (U) Negative Negative [facility] Work Phone: Urine pHon 10-05-2022 pH (U) 7.0 [pH] 5.0 - 8.0 [facility] Work Phone: Urine sediment bacteria coun t by microscopy (number/high power field)on 10-05-2022 Bacteria LM.HPF (Urine sed) [#/Area] 0 /[HPF] None Seen [facility] Work Phone: Urine specific gravity measu rementon 10-05-2022 Specific gravity (U) [Rel density] 1.010 1.002-1.030 [facility] Work Phone: Urobilinogen Auto test strip Ql (U)on 10-05-2022 Urobilinogen Ql (U) Normal mg/dl Normal [facility] Work Phone: Absolute lymphocyte counton 09-29-2022 Lymphocytes Auto (Unsp spec) [#/Vol] 0.69 10*3/uL 0.83-4.51 [facility] Work Phone: Basophil percentageon 2021 Basophils/100 WBC (Bld) 0.3 % 0-1 [facility] Work Phone: Eosinophils/100 WBC (Bld) 2.1 % 0-5 [facility] Work Phone: Neutrophils (Bld) [#/Vol] 2.3 10*3/uL 2.0-7.7 [facility] Work Phone: Neutrophils/100 WBC (Bld) 69.9 % 47-70 [facility] Work Phone: WBC (Bld) [#/Vol] 3.3 10*3/uL 4.4-11.0 [facility] Work Phone: Blood erythrocytes count (nu mber/volume)on 09-29-2022 RBC (Bld) [#/Vol] 3.17 10*6/uL 4.2-5.4 [facility] Work Phone: Blood hemoglobin measurement (mass/volume)on 09-29-2022 Hemoglobin (Bld) [Mass/Vol] 8.8 g/dL 12.0-15.0 [facility] Work Phone: Blood lymphocytes/100 leukoc yteson 09-29-2022 Lymphocytes/100 WBC (Bld) 21.0 % 19-41 [facility] Work Phone: Blood monocytes/100 leukocyt eson 09-29-2022 Monocytes/100 WBC (Bld) 6.1 % 0-10 [facility] Work Phone: Blood platelet mean volumeon 09-29-2022 Platelet mean volume (Bld) [Entitic vol] 10.0 fL 6.2-12.0 [facility] Work Phone: Determination of erythrocyte mean corpuscular volume (MCV)on 09-29-2022 MCV (RBC) [Entitic vol] 97.2 fL 81-99 [facility] Work Phone: Hematocrit Auto (Bld) [Volum e fraction]on 09-29-2022 Hematocrit (Bld) [Volume fraction] 30.8 % 37-47 [facility] Work Phone: Laboratory - Hematology and Cell countson 09-29-2022 Erythrocyte distribution width (RBC) [Entitic vol] 49.7 fL 35.1-43.9 [facility] Work Phone: Erythrocyte distribution width (RBC) [Ratio] 14.0 % 11.6-14.6 [facility] Work Phone: Immature granulocytes/100 WBC (Bld) 0.600 % 0.0-0.9 [facility] Work Phone: Comment on above: IG% - Immature Granu locytes (promyelocytes, myelocytes and metamyelocytes) > 1% indicates that a LEFT SHIFT is Present. MCH (RBC) [Entitic mass] 27.8 pg 27.0-32.0 [facility] Work Phone: [phone] Nucleated RBC/100 WBC (Bld) [Ratio] 0.9 % 0-5 [facility] Work Phone: [phone] MCHC Auto (RBC) [Mass/Vol]on 09-29-2022 MCHC (RBC) [Mass/Vol] 28.6 g/dL 32-36 [facility]: Platelets bldon 09-29-2022 Platelets (Bld) [#/Vol] 83 10*3/uL 150-450 [facility] Work Phone: Basophil percentageon 2021 Basophil percentage 5-10 SEEN /hpf 0-5 [facility] Work Phone: Bilirubin Test strip Ql (U)o n 09-08-2022 Bilirubin Ql (U) Negative Negative [facility] Work Phone: Ketones Test strip Ql (U)on 09-08-2022 Ketones Ql (U) Negative Negative [facility] Work Phone: Mucus LM Ql (Urine sed)on Mucus Ql (Urine sed) 1+ /hpf [facility] Work Phone: Nitrite Test strip Ql (U)on 09-08-2022 Nitrite Ql (U) Positive Negative [facility] Work Phone: Protein Test strip Ql (U)on 09-08-2022 Protein Ql (U) Negative Negative [facility] Work Phone: Squamous epithelial cells de tection in urine sediment by light microscopyon 09-08-2022 Epithelial cells.squamous LM Ql (Urine sed) 0-5 SEEN /hpf 5-10 [facility] Work Phone: Urine blood detectionon 08-15 RBC Ql (U) 10 /ul Negative [facility] Work Phone: RBC Ql (U) 0-5 SEEN /hpf 0-5 [facility] Work Phone: Urine clarityon 09-08-2022 Clarity (U) Sl. Cloudy Clear [facility] Work Phone: Urine color determinationon 09-08-2022 Color (U) Yellow Yellow [facility] Work Phone: Urine glucose detectionon Glucose Ql (U) Normal mg/dl Normal [facility] Work Phone: Urine leukocyte esterase det ection by dipstickon 09-08-2022 Leukocyte esterase Test strip Ql (U) 500 /ul Negative [facility] Work Phone: Urine pHon 09-08-2022 pH (U) 6.5 [pH] 5.0 - 8.0 [facility] Work Phone: Urine sediment bacteria coun t by microscopy (number/high power field)on 09-08-2022 Bacteria LM.HPF (Urine sed) [#/Area] 2 /[HPF] None Seen [facility] Work Phone: Urine specific gravity measu rementon 09-08-2022 Specific gravity (U) [Rel density] 1.010 1.002-1.030 [facility] Work Phone: Urobilinogen Auto test strip Ql (U)on 09-08-2022 Urobilinogen Ql (U) Normal mg/dl Normal [facility] Work Phone: Absolute lymphocyte counton 09-01-2022 Lymphocytes Auto (Unsp spec) [#/Vol] 0.68 10*3/uL 0.83-4.51 [facility] Work Phone: Basophil percentageon 2021 Basophils/100 WBC (Bld) 0.3 % 0-1 [facility] Work Phone: Bilirubin [Mass/Vol] 0.50 mg/dL 0.20-1.00 [facility] Work Phone: Comment on above: For patients on eltr ombopag therapy, use of Dimension Simpson TBIL is not recommended. Chloride [Moles/Vol] 106 mmol/L 98-107 [facility] Work Phone: Eosinophils/100 WBC (Bld) 1.5 % 0-5 [facility] Work Phone: Glucose [Mass/Vol] 86 mg/dL 74-106 [facility] Work Phone: Neutrophils (Bld) [#/Vol] 2.4 10*3/uL 2.0-7.7 [facility] Work Phone: Neutrophils/100 WBC (Bld) 71.9 % 47-70 [facility] Work Phone: [phone] Potassium [Moles/Vol] 3.9 mmol/L 3.5-5.1 [facility] Work Phone: Protein [Mass/Vol] 6.4 g/dL 6.4-8.2 [facility] Work Phone: Sodium [Moles/Vol] 147 mmol/L 136-145 [facility] Work Phone: WBC (Bld) [#/Vol] 3.4 10*3/uL 4.4-11.0 [facility] Work Phone: Blood erythrocytes count (nu mber/volume)on 09-01-2022 RBC (Bld) [#/Vol] 2.97 10*6/uL 4.2-5.4 [facility]: [phone] Blood hemoglobin measurement (mass/volume)on 09-01-2022 Hemoglobin (Bld) [Mass/Vol] 8.6 g/dL 12.0-15.0 [facility] Work Phone: [phone] Blood lymphocytes/100 leukoc yteson 09-01-2022 Lymphocytes/100 WBC (Bld) 20.3 % 19-41 [facility] Work Phone: Blood monocytes/100 leukocyt eson 09-01-2022 Monocytes/100 WBC (Bld) 5.7 % 0-10 [facility] Work Phone: Blood platelet adequacy dete ction by light microscopyon 09-01-2022 Platelets LM Ql (Bld) MOD DEC ADEQ [facility] Work Phone: Blood platelet mean volumeon 09-01-2022 Platelet mean volume (Bld) [Entitic vol] 9.3 fL 6.2-12.0 [facility] Work Phone: Determination of erythrocyte mean corpuscular volume (MCV)on 09-01-2022 MCV (RBC) [Entitic vol] 97.6 fL 81-99 [facility] Work Phone: Hematocrit Auto (Bld) [Volum e fraction]on 09-01-2022 Hematocrit (Bld) [Volume fraction] 29.0 % 37-47 [facility] Work Phone: Laboratory - Chemistry and C hemistry - challengeon 09-01-2022 ALP [Catalytic activity/Vol] 65 U/L 45-117 [facility] Work Phone: ALT [Catalytic activity/Vol] 19 U/L 13-56 [facility] Work Phone: CO2 [Moles/Vol] 40.0 mmol/L 21.0-32.0 [facility] Work Phone: Globulin (S) [Mass/Vol] 3.4 g/dL 2.2-4.2 [facility] Work Phone: Urea nitrogen/Creatinine [Mass ratio] 21.1 mg/mg 10-20 [facility] Work Phone: Laboratory - Hematology and Cell countson 09-01-2022 Erythrocyte distribution width (RBC) [Entitic vol] 49.0 fL 35.1-43.9 [facility] Work Phone: Erythrocyte distribution width (RBC) [Ratio] 13.7 % 11.6-14.6 [facility] Work Phone: Immature granulocytes/100 WBC (Bld) 0.300 % 0.0-0.9 [facility] Work Phone: Comment on above: IG% - Immature Granu locytes (promyelocytes, myelocytes and metamyelocytes) > 1% indicates that a LEFT SHIFT is Present. MCH (RBC) [Entitic mass] 29.0 pg 27.0-32.0 [facility] Work Phone: Nucleated RBC/100 WBC (Bld) [Ratio] 0 % 0-5 [facility] Work Phone: MCHC Auto (RBC) [Mass/Vol]on 09-01-2022 MCHC (RBC) [Mass/Vol] 29.7 g/dL 32-36 [facility] Work Phone: No Panel Informationon 09-01 Estimated GFR (MDRD) Amer 112 mL/min >60 [facility] Work Phone: Comment on above: GFR Calc Estimated GFR (MDRD) Non-Af Amer 93 mL/min >60 [facility] Work Phone: Comment on above: Non- GFR Calc Thyroid Stimulating Hormone (TSH) 2.06 uIU/mL 0.358-3.74 [facility] Work Phone: Platelets bldon 09-01-2022 Platelets (Bld) [#/Vol] 99 10*3/uL 150-450 [facility] Work Phone: RBC morphologyon 09-01-2022 RBC morphology finding Nom (Bld) NORM C+C NORMAL NORM C&C [facility] Work Phone: Serum or plasma albumin celina urement (mass/volume)on 09-01-2022 Albumin [Mass/Vol] 3.0 g/dL 3.2-5.0 [facility] Work Phone: Serum or plasma albumin/glob ulin mass ratioon 09-01-2022 Albumin/Globulin [Mass ratio] 0.9 {ratio} 0.9-2.4 [facility] Work Phone: Serum or plasma calcium celina urement (mass/volume)on 09-01-2022 Calcium [Mass/Vol] 8.8 mg/dL 8.5-10.1 [facility] Work Phone: Serum or plasma creatinine m easurement (mass/volume)on 09-01-2022 Creatinine [Mass/Vol] 0.66 mg/dL 0.55-1.02 [facility] Work Phone: Comment on above: The validity of the calculated GFR & GFRAA in patients over 70 years has not been determined. Clinical correlation is essential. Serum or plasma urea nitroge n measurement (mass/volume)on 09-01-2022 Urea nitrogen [Mass/Vol] 14 mg/dL 7-18 [facility] Work Phone: Thin prep Papanicolaou smear with manual screeningon 09-01-2022 Thin prep Papanicolaou smear with manual screening 21 U/L 15-37 [facility] Work Phone: Thin prep Papanicolaou smear with manual screening 1 5-15 [facility] Work Phone: Absolute lymphocyte counton 08-26-2022 Lymphocytes Auto (Unsp spec) [#/Vol] 0.68 10*3/uL 0.83-4.51 [facility] Work Phone: Basophil percentageon 2021 Basophils/100 WBC (Bld) 0.2 % 0-1 [facility] Work Phone: Eosinophils/100 WBC (Bld) 1.2 % 0-5 [facility] Work Phone: Neutrophils (Bld) [#/Vol] 3.0 10*3/uL 2.0-7.7 [facility] Work Phone: Neutrophils/100 WBC (Bld) 74.7 % 47-70 [facility] Work Phone: WBC (Bld) [#/Vol] 4.0 10*3/uL 4.4-11.0 [facility] Work Phone: Blood erythrocytes count (nu mber/volume)on 08-26-2022 RBC (Bld) [#/Vol] 2.88 10*6/uL 4.2-5.4 [facility] Work Phone: [phone] Blood hemoglobin measurement (mass/volume)on 08-26-2022 Hemoglobin (Bld) [Mass/Vol] 8.5 g/dL 12.0-15.0 [facility] Work Phone: Blood lymphocytes/100 leukoc yteson 08-26-2022 Lymphocytes/100 WBC (Bld) 17.0 % 19-41 [facility] Work Phone: Blood monocytes/100 leukocyt eson 08-26-2022 Monocytes/100 WBC (Bld) 6.7 % 0-10 [facility] Work Phone: Blood platelet mean volumeon 08-26-2022 Platelet mean volume (Bld) [Entitic vol] 9.3 fL 6.2-12.0 [facility] Work Phone: Determination of erythrocyte mean corpuscular volume (MCV)on 08-26-2022 MCV (RBC) [Entitic vol] 101.0 fL 81-99 [facility] Work Phone: [phone] Hematocrit Auto (Bld) [Volum e fraction]on 08-26-2022 Hematocrit (Bld) [Volume fraction] 29.1 % 37-47 [facility] Work Phone: [phone] Laboratory - Hematology and Cell countson 08-26-2022 Erythrocyte distribution width (RBC) [Entitic vol] 50.9 fL 35.1-43.9 [facility] Work Phone: [phone] Erythrocyte distribution width (RBC) [Ratio] 13.8 % 11.6-14.6 [facility] Work Phone: [phone] Immature granulocytes/100 WBC (Bld) 0.200 % 0.0-0.9 [facility] Work Phone: Comment on above: IG% - Immature Granu locytes (promyelocytes, myelocytes and metamyelocytes) > 1% indicates that a LEFT SHIFT is Present. MCH (RBC) [Entitic mass] 29.5 pg 27.0-32.0 [facility] Work Phone: Nucleated RBC/100 WBC (Bld) [Ratio] 0 % 0-5 [facility] Work Phone: [phone] MCHC Auto (RBC) [Mass/Vol]on 08-26-2022 MCHC (RBC) [Mass/Vol] 29.2 g/dL 32-36 [facility] Work Phone: Platelets bldon 08-26-2022 Platelets (Bld) [#/Vol] 105 10*3/uL 150-450 [facility] Work Phone: Basophil percentageon 2021 Chloride [Moles/Vol] 99 mmol/L 98-107 [facility] Work Phone: Cholesterol [Mass/Vol] 149 mg/dL <200 [facility] Work Phone: Comment on above: <200 mg/dL Desirable 200-240 mg/dL Borderline >240 mg/dL High Risk Glucose [Mass/Vol] 148 mg/dL 74-106 [facility] Work Phone: Comment on above: Fasting Glucose resu lt greater than or equal to 126 mg/dL suggests DIABETES MELLITUS per A.D.A. criteria. Potassium [Moles/Vol] 4.2 mmol/L 3.5-5.1 [facility] Work Phone: Sodium [Moles/Vol] 141 mmol/L 136-145 [facility] Work Phone: Triglyceride [Mass/Vol] 188 mg/dL <199 [facility] Work Phone: Comment on above: The drugs N-Acetylcy steine and Metamizole may falsely depress this assay.Serum Triglycerides Reference Interval Normal <150 mg/dL Borderline high 150 - 199 mg/dL High 200 - 499 mg/dL Very High > or = 500 mg/dL WBC (Bld) [#/Vol] 4.8 10*3/uL 4.4-11.0 [facility] Work Phone: Blood erythrocytes count (nu mber/volume)on 08-02-2022 RBC (Bld) [#/Vol] 2.91 10*6/uL 4.2-5.4 [facility] Work Phone: Blood hemoglobin measurement (mass/volume)on 08-02-2022 Hemoglobin (Bld) [Mass/Vol] 8.6 g/dL 12.0-15.0 [facility] Work Phone: Blood platelet mean volumeon 08-02-2022 Platelet mean volume (Bld) [Entitic vol] 9.1 fL 6.2-12.0 [facility] Work Phone: Determination of erythrocyte mean corpuscular volume (MCV)on 08-02-2022 MCV (RBC) [Entitic vol] 102.4 fL 81-99 [facility] Work Phone: Hematocrit Auto (Bld) [Volum e fraction]on 08-02-2022 Hematocrit (Bld) [Volume fraction] 29.8 % 37-47 [facility] Work Phone: Iron measurement (mass/mass) on 08-02-2022 Iron (Unsp spec) [Mass/Mass] 43 ug/dL 50-170 [facility] Work Phone: Laboratory - Chemistry and C hemistry - challengeon 08-02-2022 Albumin [Mass/Vol] 3.3 g/dL 2.9-4.4 [facility] Work Phone: CO2 [Moles/Vol] 39.0 mmol/L 21.0-32.0 [facility] Work Phone: Cobalamin (Vitamin B12) [Mass/Vol] 350 pg/mL 211-911 [facility] Work Phone: Urea nitrogen/Creatinine [Mass ratio] 26.8 mg/mg 10-20 [facility] Work Phone: Laboratory - Hematology and Cell countson 08-02-2022 Erythrocyte distribution width (RBC) [Entitic vol] 52.6 fL 35.1-43.9 [facility] Work Phone: Erythrocyte distribution width (RBC) [Ratio] 14.2 % 11.6-14.6 [facility] Work Phone: MCH (RBC) [Entitic mass] 29.6 pg 27.0-32.0 [facility] Work Phone: MCHC Auto (RBC) [Mass/Vol]on 08-02-2022 MCHC (RBC) [Mass/Vol] 28.9 g/dL 32-36 [facility] Work Phone: No Panel Informationon 08-02 Addendum Document Comment . [facility] Work Phone: Comment on above: The SPE pattern appe ars unremarkable. Evidence ofmonoclonal protein is not apparent.Performed at: [address] [id number] Director: Mark Woo PhD, Phone: [phone] [id number]-1-[id number] 0.3 g/dL 0.0-0.4 [facility] Work Phone: Aslib-8-Baqzvhqfw 0.9 g/dL 0.4-1.0 [facility] Work Phone: Estimated GFR (MDRD) Amer 104 mL/min >60 [facility] Work Phone: Comment on above: GFR Calc Estimated GFR (MDRD) Non-Af Amer 86 mL/min >60 [facility] Work Phone: Comment on above: Non- GFR Calc Gamma Globulins 0.9 g/dL 0.4-1.8 [facility] Work Phone: Thyroid Stimulating Hormone (TSH) 1.91 uIU/mL 0.358-3.74 [facility] Work Phone: Total Iron Binding Capacity 268 ug/dL 250-450 [facility] Work Phone: Platelets bldon 08-02-2022 Platelets (Bld) [#/Vol] 120 10*3/uL 150-450 [facility] Work Phone: Protein Fractions Elph [Inte rp]on 08-02-2022 Protein Fractions [Interp] Comment . [facility] Work Phone: Comment on above: Protein electrophore sis scan will follow via computer,mail, or traveling buyer delivery. Serum albumin to globulin ra amairani by protein electrophoresison 08-02-2022 Albumin/Globulin Elph [Mass ratio] 1.0 0.7-1.7 [facility] Work Phone: Serum globulin measurement ( mass/volume)on 08-02-2022 Globulin (S) [Mass/Vol] 3.2 g/dL 2.2-3.9 [facility] Work Phone: Serum or plasma beta globuli n measurement by electrophoresis (mass/volume)on 08-02-2022 Beta globulin Elph [Mass/Vol] 1.0 g/dL 0.7-1.3 [facility] Work Phone: Serum or plasma calcium celina urement (mass/volume)on 08-02-2022 Calcium [Mass/Vol] 9.0 mg/dL 8.5-10.1 [facility] Work Phone: Serum or plasma cholesterol in HDL measurement (mass/volume)on 08-02-2022 Cholesterol in HDL [Mass/Vol] 53 mg/dL >40 [facility] Work Phone: Comment on above: The drugs N-Acetylcy steine and Metamizole may falsely depress this assay. Reference Range HDL <40 mg/dL Low HDL Cholesterol HDL >or= 60 mg/dL High HDL Cholesterol Serum or plasma cholesterol in VLDL measurement (mass/volume)on 08-02-2022 Cholesterol in VLDL [Mass/Vol] 38 mg/dL 5-40 [facility] Work Phone: Serum or plasma creatinine m easurement (mass/volume)on 08-02-2022 Creatinine [Mass/Vol] 0.71 mg/dL 0.55-1.02 [facility] Work Phone: Comment on above: The validity of the calculated GFR & GFRAA in patients over 70 years has not been determined. Clinical correlation is essential. Serum or plasma iron saturat ion measurement (mass fraction)on 08-02-2022 Iron saturation [Mass fraction] 16.0 % 15.0-55.0 [facility] Work Phone: Serum or plasma low density lipoprotein (LDL) cholesterol measurement (mass/volume)on 08-02-2022 Cholesterol in LDL [Mass/Vol] 58 mg/dL 0-130 [facility] Work Phone: Serum or plasma urea nitroge n measurement (mass/volume)on 08-02-2022 Urea nitrogen [Mass/Vol] 19 mg/dL 7-18 [facility] Work Phone: Thin prep Papanicolaou smear with manual screeningon 08-02-2022 Thin prep Papanicolaou smear with manual screening 3 5-15 [facility] Work Phone: Thin prep Papanicolaou smear with manual screening See comment [facility] Work Phone: Comment on above: Result: Not Observed Total protein bloodon 2021 Protein [Mass/Vol] 6.5 g/dL 6.0-8.5 [facility] Work Phone: Whole blood hemoglobin A1c/t otal hemoglobin ratio (mass fraction)on 08-02-2022 HbA1c (Bld) [Mass fraction] 5.7 % 3.8-5.6 [facility] Work Phone: Comment on above: Normal < 5.7 % Predi abetic 5.7 - 6.4 % Diabetic >or= 6.5 % Please note range changes. LABORATORYOrdered By: Chelsy Kay on 07-27-2022 Blood Glucose Testing Reason Routine (07/27/22 9:16 AM) [facility] Work Phone: Glucose [Mass/Vol] 177 mg/dL Invalid Interpretation Code 82 - 115 mg/dL [facility] Work Phone: LABORATORYOrdered By: Caitie Roman on 07-27-2022 Date of Onset [id number] Invalid Interpretation Code AH Auto Viro/Sero SS Employed in Healthcare No (07/27/22 9:01 AM) Invalid Interpretation Code AH Auto Viro/Sero SS First Test Unknown (07/27/22 9:01 AM) Invalid Interpretation Code Auto Viro/Sero SS FLUAV RNA ISA+probe Ql (Resp) Negative 7 (07/27/22 9:01 AM) Invalid Interpretation Code Negative AH Auto Viro/Sero SS Comment on above: Result Comment: [place] s [id number] FLUBV RNA ISA+probe Ql (Resp) Negative 8 (07/27/22 9:01 AM) Invalid Interpretation Code Negative Auto Viro/Sero SS Comment on above: Result Comment: Note s [id number] Hospitalized Yes (07/27/22 9:01 AM) Invalid Interpretation Code AH Auto Viro/Sero SS ICU No (07/27/22 9:01 AM) Invalid Interpretation Code AH Auto Viro/Sero SS Not (07/27/22 9:01 AM) Invalid Interpretation Code AH Auto Viro/Sero SS Resides in Congregate Care Setting No (07/27/22 9:01 AM) Invalid Interpretation Code AH Auto Viro/Sero SS RSV PCR Negative 9 (07/27/22 9:01 AM) Invalid Interpretation Code Negative Auto Viro/Sero SS Comment on above: Result Comment: Note s SARS-CoV-2 (COVID-19) RNA ISA+probe Ql (Resp) Negative 6 (07/27/22 9:01 AM) Invalid Interpretation Code Negative AH Auto Viro/Sero SS Comment on above: Result Comment: Note s Symptomatic as Defined by CDC No (07/27/22 9:01 AM) Invalid Interpretation Code AH Auto Viro/Sero SS LABORATORYOrdered By: Jareth Farrell on 07-26-2022 Blood Glucose Testing Reason Routine (07/26/22 10:22 PM) [facility] Work Phone: Glucose [Mass/Vol] 176 mg/dL Invalid Interpretation Code 82 - 115 mg/dL [facility] Work Phone: Blood Glucose Testing Reason Routine (07/26/22 5:08 PM) [facility] Work Phone: Glucose [Mass/Vol] 232 mg/dL Invalid Interpretation Code 82 - 115 mg/dL [facility] Work Phone: LABORATORYOrdered By: Marcelina Freeman on 07-25-2022 Blood Glucose Interventions Administered agent to decrease blood sugar (07/25/22 4:57 PM) [facility] Work Phone: Blood Glucose Interventions Administered agent to decrease blood sugar (07/25/22 12:59 PM) [facility] Work Phone: LABORATORYOrdered By: Luana Bliss on 07-24-2022 Blood Glucose Interventions Administered agent to decrease blood sugar (07/24/22 1:00 PM) [facility] Work Phone: LABORATORYOrdered By: Poli Torres on [...] - 10.4 mg/dL ADM SS Chloride [Moles/Vol] 99 mmol/L Invalid Interpretation Code 98 - 110 mEq/L ADM SS Creatinine [Mass/Vol] 0.54 mg/dL Invalid Interpretation Code 0.50 - 1.20 mg/dL AH ADM SS GFR/1.73 sq M.predicted among blacks MDRD (S/P/Bld) [Vol rate/Area] ml/min/1.73sqm Invalid Interpretation Code AH ADM SS GFR/1.73 sq M.predicted among non-blacks MDRD (S/P/Bld) [Vol rate/Area] ml/min/1.73sqm Invalid Interpretation Code ADM SS Glucose [Mass/Vol] 144 mg/dL Invalid Interpretation Code 82 - 115 mg/dL ADM SS Magnesium [Mass/Vol] 1.8 mg/dL Invalid Interpretation Code 1.6 - 2.4 mg/dL ADM SS Potassium [Moles/Vol] 3.5 mmol/L Invalid Interpretation Code 3.5 - 5.0 mEq/L ADM SS Sodium [Moles/Vol] 144 mmol/L Invalid Interpretation Code 136 - 145 mEq/L AH ADM SS Urea nitrogen [Mass/Vol] 14.0 mg/dL Invalid Interpretation Code 8.0 - 22.0 mg/dL ADM SS Urea nitrogen/Creatinine [Mass ratio] 25.9 ratio Invalid Interpretation Code 10.0 - 22.0 ratio AH ADM SS LABORATORYOrdered By: Kang grimaldo on [...] 10^3/mcL AH Workflow SS Lymphocytes/100 WBC (Bld) 9.9 % Invalid Interpretation Code 20.0 - 40.0 % AH Workflow SS Magnesium [Mass/Vol] 1.7 mg/dL Invalid Interpretation Code 1.6 - 2.4 mg/dL ADM SS MCH (RBC) [Entitic mass] 30.2 pg Invalid Interpretation Code 27.0 - 33.0 pg AH Workflow SS MCHC 33.4 G/dL Invalid Interpretation Code 32.0 - 36.0 G/dL AH Workflow SS MCV (RBC) [Entitic vol] 90.5 fL Invalid Interpretation Code 80.0 - 99.0 fL Workflow SS Monocytes (Bld) [#/Vol] 0.7 103/mcL Invalid Interpretation Code 0.1 - 1.4 10^3/mcL AH Workflow SS Monocytes/100 WBC (Bld) 7.9 % Invalid Interpretation Code 2.0 - 13.0 % AH Workflow SS Neutrophils (Bld) [#/Vol] 6.7 103/mcL [...] Code 3.5 - 5.0 mEq/L ADM SS RBC (Bld) [#/Vol] 2.94 106/mcL [...] 2.5 % Workflow SS Eosinophils (Bld) [#/Vol] 0.1 103/mcL Invalid Interpretation Code 0.0 - 0.7 10^3/mcL Workflow SS Eosinophils/100 WBC (Bld) 1.0 % Invalid Interpretation Code 0.0 - 6.0 % Workflow SS Erythrocyte distribution width (RBC) [Ratio] 14.2 % Invalid Interpretation Code 11.5 - 15.5 % Workflow SS Hematocrit (Bld) [Volume fraction] 26.3 % Invalid Interpretation Code 34.0 - 46.0 % Workflow SS Hemoglobin (Bld) [Mass/Vol] 8.8 G/dL Invalid Interpretation Code 12.0 - 16.0 G/dL Workflow SS Lymphocytes (Bld) [#/Vol] 0.8 103/mcL Invalid Interpretation Code 0.9 - 4.3 10^3/mcL Workflow SS Lymphocytes/100 WBC (Bld) 12.9 % Invalid Interpretation Code 20.0 - 40.0 % Workflow SS Magnesium [Mass/Vol] 1.8 mg/dL Invalid Interpretation Code 1.6 - 2.4 mg/dL ADM SS MCH (RBC) [Entitic mass] 30.4 [...] 4.3 10^3/mcL Workflow SS Lymphocytes/100 WBC (Bld) 13.2 % Invalid Interpretation Code 20.0 - 40.0 % Workflow SS MCH (RBC) [Entitic mass] 30.4 pg Invalid Interpretation Code 27.0 - 33.0 pg Workflow SS MCHC 33.1 G/dL Invalid Interpretation [...] Hg AH Auto Chem SS CO2 [Moles/Vol] 31.3 mmol/L Invalid Interpretation Code 22.0 - 30.0 mmol/L AH Auto Chem SS HCO3 (Bld) [Moles/Vol] 30.1 mmol/L Invalid Interpretation Code 21.0 - 29.0 mmol/L AH Auto Chem SS Lactate [Moles/Vol] 1.1 mmol/L Invalid Interpretation Code 0.2 - 2.0 mmol/L AH Auto Chem SS Oxygen (Bld) [Partial pressure] 126.9 mm[Hg] Invalid Interpretation Code 74.0 - 108.0 mm Hg AH Auto Chem SS pH (Bld) 7.508 [pH] [...] Ertapenem TATO [Susc] >100,000 cfu/ml Escherichia coli [facility] Work Phone: Ertapenem TATO [Susc]on 07-12 Escherichia coli Escherichia coli [facility] Work Phone: LABORATORYOrdered By: Dana Lucero [...] Below (07/12/22 2:00 AM) Invalid Interpretation Code Chemistry S LABORATORYOrdered By: Jeff Jaime on [...] S Ethanol [Mass/Vol] mg/dL Invalid Interpretation Code ADM SS Salicylates [Mass/Vol] mg/dL Invalid Interpretation Code 10.0 - 25.0 mg/dL ADM SS Tricyclic antidepressants Screen Ql Negative Invalid Interpretation Code ADM SS LABORATORYOrdered By: SYSTEM SYSTEM on [...] Invalid Interpretation Code 82 - 115 mg/dL [facility] Work Phone: LABORATORYOrdered By: Triston Nicholson on [...] S CNCOon 11-30-2021 CNCO Letter Text Normal [facility] LABORATORYOrdered By: Dori Frances on 09-15-2021 Calcium [...] Former smoker Tobacco Use Screening; Status:Complete; Done: [id number] Perform:Not Applicable;Ordered; For:SocHx: Former smoker; Ordered By:Jenniffer [...] mixing and drinking quickly. This product is [id number]-pljukky. Additionally take MiraLAX as needed for constipation. [...] ultrasound of the liver History of Present [id number] female spoken to over telephone referred for [...] Surgery History of Cholecystectomy History of Colonoscopy APR. 2013- DONE [place]- [place]ORM[place] History of Esophagogastroduodenoscop y APPROX- 2013- [place]- NORM[place] History of Knee arthroscopy History of [...] identified Cx Nom (U) Presumptive E. coli [facility] Work Phone: Bacteria identified Cx Nom (U) Positive [facility] Work Phone: Vital Signs Date Time Vital Sign Value Performing Clinician Facility 10-31-2023 11:16-0500 Body height 165.1 cm Elida Rafaume FRAME POLISHER-TOOL AND EQUIPMENT RENTAL CLERK Work Phone: [facility] 10-31-2023 11:16-0500 Body mass index (BMI) [Ratio] 26.79 kg/m2 Elida Blume FRAME POLISHER-TOOL AND EQUIPMENT RENTAL CLERK Work Phone: [facility] 10-31-2023 11:16-0500 Body weight 73.03 kg Elida Blume FRAME POLISHER-TOOL AND EQUIPMENT RENTAL CLERK Work Phone: [facility] 10-31-2023 11:16-0500 Diastolic blood pressure 61 mm[Hg] Elida Blume FRAME POLISHER-TOOL AND EQUIPMENT RENTAL CLERK Work Phone: [facility] 10-31-2023 11:16-0500 Heart rate 84 /min Elida Blume FRAME POLISHER-TOOL AND EQUIPMENT RENTAL CLERK Work Phone: [facility] 10-31-2023 11:16-0500 SaO2% (BldA) [Mass fraction] 97 % Elida Blume FRAME POLISHER-TOOL AND EQUIPMENT RENTAL CLERK Work Phone: [facility] 10-31-2023 11:16-0500 Systolic blood pressure 94 mm[Hg] Elida Blume FRAME POLISHER-TOOL AND EQUIPMENT RENTAL CLERK Work Phone: [facility] 10-17-2023 11:20-0500 Body height 165.1 cm Varsha Sotelo MD Work Phone: [facility] 10-17-2023 11:20-0500 Body mass index (BMI) [Ratio] 26.88 kg/m2 Varsha Sotelo MD Work Phone: [facility] 10-17-2023 11:20-0500 Body temperature 97.7 [degF] Varsha Sotelo MD Work Phone: [facility] 10-17-2023 11:20-0500 Body weight 73.26 kg Varsha Sotelo MD Work Phone: [facility] 10-17-2023 11:20-0500 Diastolic blood pressure 54 mm[Hg] Varsha Sotelo MD Work Phone: [facility] 10-17-2023 11:20-0500 Heart rate 74 /min Varsha Sotelo MD Work Phone: [facility] 10-17-2023 11:20-0500 Systolic blood pressure 94 mm[Hg] Varsha Sotelo MD Work Phone: [facility] 09-28-2023 09:24-0500 Body temperature 97.9 [degF] Velvet Jerez DO Work Phone: [facility] 09-28-2023 09:24-0500 Diastolic blood pressure 70 mm[Hg] Velvet Landon-yler DO Work Phone: [facility] 09-28-2023 09:24-0500 Heart rate 91 /min Velvet Landon-yler DO Work Phone: [facility] 09-28-2023 09:24-0500 Respiratory rate 16 /min Velvet Landon-Seyler DO Work Phone: [facility] 09-28-2023 09:24-0500 SaO2% (BldA) [Mass fraction] 99 % Velvet Landon-Seyler DO Work Phone: [facility] 09-28-2023 09:24-0500 Systolic blood pressure 111 mm[Hg] Velvet Landon-Seyler DO Work Phone: [facility] 09-19-2023 16:37-0500 Body temperature 37.0 Velvet Landon-Seyler DO Work Phone: [facility] 09-19-2023 16:37-0500 SaO2% (BldA) [Mass fraction] 99 % Velvet Landon-Seyler DO Work Phone: [facility] 09-19-2023 14:04-0500 Body temperature 37.0 degrees Celsius [facility] Comment on above: Order Comment: While on baseline/ home l evel of oxygen Result Comment: NOTE : Patient Results are Not Corrected for Temperature Performed By: #### 6 00-7 #### BEVERLEY Poe ([id number]) [facility] ([facility]) [address] [place] [address] 09-19-2023 14:04-0500 SaO2% (BldA) [Mass fraction] 99 % [facility] Comment on above: Order Comment: While on baseline/ home l evel of oxygen Performed By: #### 6 00-7 #### BEVERLEY JU Poe ([id number]) [facility] ([facility]) [address] [place] [address] 09-15-2023 18:44-0400 Body height 165.1 cm Velvet Jerez DO Work Phone: [facility] 09-15-2023 18:44-0400 Body mass index (BMI) [Ratio] 27.46 kg/m2 Velvet Jerez DO Work Phone: [facility] 09-15-2023 18:44-0400 Body weight 74.84 kg Velvet Jerez DO Work Phone: [facility] 09-15-2023 16:54-0400 Diastolic blood pressure 60 mm[Hg] Dr. Jonathan Dillard Sr. Work Phone: [facility] 09-15-2023 16:54-0400 Heart rate 88 /min Dr. Jonathan Dillard Sr. Work Phone: [facility] 09-15-2023 16:54-0400 Inhaled oxygen flow rate 3 L/min Dr. Jonathan Dillard Sr. Work Phone: [facility] 09-15-2023 16:54-0400 Respiratory rate 18 /min Dr. Jonathan Dillard Sr. Work Phone: [facility] 09-15-2023 16:54-0400 SaO2% (BldA) [Mass fraction] 100 % Dr. Jonathan Dillard Sr. Work Phone: [facility] 09-15-2023 16:54-0400 Systolic blood pressure 115 mm[Hg] Dr. Jonathan Dillard Sr. Work Phone: [facility] 09-15-2023 16:30-0400 Body temperature 97.8 [degF] Dr. Jonahtan Dillard Sr. Work Phone: [facility] 09-14-2023 22:45-0400 Body height 165.[address] Jonathan Dillard Sr. Work Phone: [facility] 09-14-2023 22:45-0400 Body mass index (BMI) [Ratio] 29 kg/m2 Dr. Jonathan Dillard Sr. Work Phone: [facility] 09-14-2023 22:45-0400 Body weight 79.[address] Jonathan Dillard Sr. Work Phone: [facility] 09-08-2023 10:18-0400 Body mass index (BMI) [Ratio] 27.6 kg/m2 Dr. Jonathan Dillard Sr. Work Phone: [facility] 09-08-2023 10:18-0400 Body temperature 97.7 [degF] Dr. Jonathan Dillard Sr. Work Phone: [facility] 09-08-2023 10:18-0400 Body weight 75.[address] Jonathan Dillard Sr. Work Phone: [facility] 09-08-2023 10:18-0400 Diastolic blood pressure 55 mm[Hg] Dr. Jonathan Dillard Sr. Work Phone: [facility] 09-08-2023 10:18-0400 Heart rate 97 /min Dr. Jonathan Dillard Sr. Work Phone: [facility] 09-08-2023 10:18-0400 Inhaled oxygen flow rate 1 L/min Dr. Jonathan Dillard Sr. Work Phone: [facility] 09-08-2023 10:18-0400 Respiratory rate 18 /min Dr. Jonathan Dillard Sr. Work Phone: [facility] 09-08-2023 10:18-0400 SaO2% (BldA) [Mass fraction] 95 % Dr. Jonathan Dillard Sr. Work Phone: [facility] 09-08-2023 10:18-0400 Systolic blood pressure 99 mm[Hg] Dr. Jonathan Dillard Sr. Work Phone: [facility] 08-15-2023 11:54-0400 Diastolic Blood Pressure Non-Invasive [address] MARK JEREZ MD [facility] 08-15-2023 11:54-0400 Heart rate 91 /min DR MARK JEREZ MD [facility] 08-15-2023 11:54-0400 Respiratory rate 23 /min DR MARK JEREZ MD [facility] 08-15-2023 11:54-0400 Systolic Blood Pressure Non-Invasive [address] MARK JEREZ MD [facility] 08-15-2023 11:41-0400 Diastolic Blood Pressure Non-Invasive [address] MARK JEREZ MD [facility] 08-15-2023 11:41-0400 Heart rate 98 /min DR MARK JEREZ MD [facility] 08-15-2023 11:41-0400 Respiratory rate 19 /min DR MARK JEREZ MD [facility] 08-15-2023 11:41-0400 Systolic Blood Pressure Non-Invasive [address] MARK JEREZ MD [facility] 08-15-2023 11:25-0400 Body temperature 97.52 [degF] DR MARK JEREZ MD [facility] 08-15-2023 11:25-0400 Diastolic Blood Pressure Non-Invasive [address] MARK JEREZ MD [facility] 08-15-2023 11:25-0400 Heart rate 97 /min DR MARK JEREZ MD [facility] 08-15-2023 11:25-0400 Respiratory rate 24 /min DR MARK JEREZ MD [facility] 08-15-2023 11:25-0400 Systolic Blood Pressure Non-Invasive [address] MARK JEREZ MD [facility] 08-15-2023 11:15-0400 Respiratory Rate - Anes 25 br/min DR MARK JEREZ MD [facility] 08-15-2023 11:10-0400 Respiratory Rate - Anes 26 br/min DR MARK JEREZ MD [facility] 08-15-2023 11:05-0400 Respiratory Rate - Anes 9 br/min DR MARK JEREZ MD [facility] 08-15-2023 10:290400 Body height [address] MARK JEREZ MD [facility] 08-15-2023 10:29-0400 Body weight [address] MARK JEREZ MD [facility] 08-15-2023 10:290400 Body weight 34.89 kg/m2 DR MARK JEREZ MD [facility] 08-15-2023 10:190400 Body height [address] MARK JEREZ MD [facility] 08-15-2023 10:190400 Body temperature 98.06 [degF] DR MARK JEREZ MD [facility] 08-15-2023 10:190400 Body weight [address] MARK JEREZ MD [facility] 08-15-2023 10:19-0400 Heart rate 87 /min DR MARK JEREZ MD [facility] 08-10-2023 03:47-0400 Diastolic blood pressure 62 mm[Hg] [facility]-10-2023 03:47-0400 Heart rate 89 /min [facility] 03:47-0400 Respiratory rate 18 /min [facility] 08-10-2023 03:47-0400 SaO2% (BldA) [Mass fraction] 95 % Jonathan [facility] 08-10-2023 03:47-0400 Systolic blood pressure 108 mm[Hg] Jonathan [facility] 08-09-2023 22:56-0400 Body height 165.1 cm Jonathan [facility] 08-09-2023 22:56-0400 Body mass index (BMI) [Ratio] 29.3 kg/m2 Jonathan [facility] 08-09-2023 22:56-0400 Body temperature 98.9 [degF] Jonathan [facility] 08-09-2023 22:56-0400 Body weight 80.1 kg Jonathan [facility] 08-09-2023 22:56-0400 Inhaled oxygen flow rate 2 L/min MD Castillo [facility] 07-14-2023 19:07-0400 Diastolic blood pressure 43 mm[Hg] MODELING INSTRUCTOR-Andrea Carlisle MODELING INSTRUCTOR Work Phone: [facility] 07-14-2023 19:07-0400 Heart rate 92 /min MODELING INSTRUCTOR-Andrea Carlisle MODELING INSTRUCTOR Work Phone: [facility] 07-14-2023 19:07-0400 Respiratory rate 17 /min MODELING INSTRUCTOR-Andrea Carlisle MODELING INSTRUCTOR Work Phone: [facility] 07-14-2023 19:07-0400 SaO2% (BldA) [Mass fraction] 98 % MODELING INSTRUCTOR-C Barber Carlisle MODELING INSTRUCTOR Work Phone: [facility] 07-14-2023 19:07-0400 Systolic blood pressure 104 mm[Hg] MODELING INSTRUCTOR-C Barber Carlisle MODELING INSTRUCTOR Work Phone: [facility] 07-14-2023 17:25-0400 Inhaled oxygen flow rate 1.5 L/min MODELING INSTRUCTOR-C Barber Carlisle MODELING INSTRUCTOR Work Phone: [facility] 07-14-2023 15:23-0400 Body mass index (BMI) [Ratio] 29.3 kg/m2 MODELING INSTRUCTOR-C Barber Carlisle MODELING INSTRUCTOR Work Phone: [facility] 07-14-2023 15:23-0400 Body weight 80 kg MODELING INSTRUCTOR-C Barber Carlisle MODELING INSTRUCTOR Work Phone: [facility] 07-14-2023 15:15-0400 Body height 165.1 cm MODELING INSTRUCTOR-C Barber Carlisle MODELING INSTRUCTOR Work Phone: [facility] 07-14-2023 15:15-0400 Body temperature 97.4 [degF] MODELING INSTRUCTOR-C Barber Carlisle MODELING INSTRUCTOR Work Phone: [facility] 05-04-2023 14:31-0400 Body height 165.1 cm MODELING INSTRUCTOR-C Barber Carlisle MODELING INSTRUCTOR Work Phone: [facility] 05-04-2023 14:31-0400 Body mass index (BMI) [Ratio] 30.1 kg/m2 MODELING INSTRUCTOR-C Barber Carlisle MODELING INSTRUCTOR Work Phone: [facility] 05-04-2023 14:31-0400 Body temperature 98.4 [degF] MODELING INSTRUCTOR-C Barber Carlisle MODELING INSTRUCTOR Work Phone: [facility] 05-04-2023 14:31-0400 Body weight 82.1 kg MODELING INSTRUCTOR-C Barber Carlisle MODELING INSTRUCTOR Work Phone: [facility] 05-04-2023 14:31-0400 Diastolic blood pressure 63 mm[Hg] MODELING INSTRUCTOR-C Barber Carlisle MODELING INSTRUCTOR Work Phone: [facility] 05-04-2023 14:31-0400 Heart rate 78 /min MODELING INSTRUCTOR-C Barber Carlisle MODELING INSTRUCTOR Work Phone: [facility] 05-04-2023 14:31-0400 Inhaled oxygen flow rate 1 L/min MODELING INSTRUCTOR-C Barber Carlisle MODELING INSTRUCTOR Work Phone: [facility] 05-04-2023 14:31-0400 Respiratory rate 15 /min MODELING INSTRUCTOR-C Barber Carlisle MODELING INSTRUCTOR Work Phone: [facility] 05-04-2023 14:31-0400 SaO2% (BldA) [Mass fraction] 96 % MODELING INSTRUCTOR-C Barber Carlisle MODELING INSTRUCTOR Work Phone: [facility] 05-04-2023 14:31-0400 Systolic blood pressure 103 mm[Hg] MODELING INSTRUCTOR-C Barber Carlisle MODELING INSTRUCTOR Work Phone: [facility] 04-19-2023 22:11-0400 Diastolic blood pressure 67 mm[Hg] MODELING INSTRUCTOR-C Barber Carlisle MODELING INSTRUCTOR Work Phone: [facility] 04-19-2023 22:11-0400 Respiratory rate 17 /min MODELING INSTRUCTOR-C Barber Carlisle MODELING INSTRUCTOR Work Phone: [facility] 04-19-2023 22:11-0400 SaO2% (BldA) [Mass fraction] 100 % MODELING INSTRUCTOR-C Barber Carlisle MODELING INSTRUCTOR Work Phone: [facility] 04-19-2023 22:11-0400 Systolic blood pressure 121 mm[Hg] MODELING INSTRUCTOR-C Barber Carlisle MODELING INSTRUCTOR Work Phone: [facility] 04-19-2023 20:00-0400 Body temperature 97.5 [degF] MODELING INSTRUCTOR-C Barber Carlisle MODELING INSTRUCTOR Work Phone: [facility] 04-19-2023 20:00-0400 Heart rate 88 /min MODELING INSTRUCTOR-C Barber Carlisle MODELING INSTRUCTOR Work Phone: [facility] 04-19-2023 20:00-0400 Inhaled oxygen flow rate 2 L/min MODELING INSTRUCTOR-C Barber Carlisle MODELING INSTRUCTOR Work Phone: [facility] 04-19-2023 16:41-0400 Body height 165.1 cm MODELING INSTRUCTOR-C Barber Carlisle MODELING INSTRUCTOR Work Phone: [facility] 04-19-2023 16:41-0400 Body mass index (BMI) [Ratio] 31.8 kg/m2 MODELING INSTRUCTOR-C Barber Carlisle MODELING INSTRUCTOR Work Phone: [facility] 04-19-2023 16:41-0400 Body weight 86.9 kg MODELING INSTRUCTOR-C Barber Carlisle MODELING INSTRUCTOR Work Phone: [facility] 04-04-2023 14:11-0400 Body temperature 97.4 [degF] MODELING INSTRUCTOR-C Barber Carlisle MODELING INSTRUCTOR Work Phone: [facility] 04-04-2023 14:11-0400 Diastolic blood pressure 66 mm[Hg] MODELING INSTRUCTOR-C Barber Carlisle MODELING INSTRUCTOR Work Phone: [facility] 04-04-2023 14:11-0400 Heart rate 76 /min MODELING INSTRUCTOR-C Barber Carlisle MODELING INSTRUCTOR Work Phone: [facility] 04-04-2023 14:11-0400 Respiratory rate 18 /min MODELING INSTRUCTOR-C Barber Carlisle MODELING INSTRUCTOR Work Phone: [facility] 04-04-2023 14:11-0400 SaO2% (BldA) [Mass fraction] 97 % MODELING INSTRUCTOR-C Barber Carlisle MODELING INSTRUCTOR Work Phone: [facility] 04-04-2023 14:11-0400 Systolic blood pressure 124 mm[Hg] MODELING INSTRUCTOR-C Barber Carlisle MODELING INSTRUCTOR Work Phone: [facility] 03-23-2023 14:35-0400 Body height 165.1 cm MODELING INSTRUCTOR-C Barber Carlisle MODELING INSTRUCTOR Work Phone: [facility] 03-23-2023 14:35-0400 Body temperature 98.2 [degF] MODELING INSTRUCTOR-C Barber Carlisle MODELING INSTRUCTOR Work Phone: [facility] 03-23-2023 14:35-0400 Diastolic blood pressure 65 mm[Hg] MODELING INSTRUCTOR-C Barber Carlisle MODELING INSTRUCTOR Work Phone: [facility] 03-23-2023 14:35-0400 Heart rate 80 /min MODELING INSTRUCTOR-C Barber Solisson MODELING INSTRUCTOR Work Phone: [facility] 03-23-2023 14:35-0400 Respiratory rate 16 /min MODELING INSTRUCTOR-C Barber Solisson MODELING INSTRUCTOR Work Phone: [facility] 03-23-2023 14:35-0400 SaO2% (BldA) [Mass fraction] 99 % MODELING INSTRUCTOR-C Barber Carlisle MODELING INSTRUCTOR Work Phone: [facility] 03-23-2023 14:35-0400 Systolic blood pressure 100 mm[Hg] MODELING INSTRUCTOR-C Barber Solisson MODELING INSTRUCTOR Work Phone: [facility] 03-09-2023 15:29-0400 Body temperature 98.2 [degF] MODELING INSTRUCTOR-C Barber Solisson MODELING INSTRUCTOR Work Phone: [facility] 03-09-2023 15:29-0400 Diastolic blood pressure 63 mm[Hg] MODELING INSTRUCTOR-C Barber Carlisle MODELING INSTRUCTOR Work Phone: [facility] 03-09-2023 15:29-0400 Heart rate 89 /min MODELING INSTRUCTOR-C Barber Solisson MODELING INSTRUCTOR Work Phone: [facility] 03-09-2023 15:29-0400 SaO2% (BldA) [Mass fraction] 96 % MODELING INSTRUCTOR-C Barber Solisson MODELING INSTRUCTOR Work Phone: [facility] 03-09-2023 15:29-0400 Systolic blood pressure 117 mm[Hg] MODELING INSTRUCTOR-C Barber Solisson MODELING INSTRUCTOR Work Phone: [facility] 03-09-2023 15:26-0400 Body height 165.1 cm MODELING INSTRUCTOR-C Barber Solisson MODELING INSTRUCTOR Work Phone: [facility] 02-25-2023 13:27-0400 Heart rate 89 /min MODELING INSTRUCTOR-C Barber Carlisle MODELING INSTRUCTOR Work Phone: [facility] 02-25-2023 13:27-0400 Respiratory rate 20 /min MODELING INSTRUCTOR-C Barber Carlisle MODELING INSTRUCTOR Work Phone: [facility] 02-25-2023 11:49-0400 Body temperature 97.3 [degF] MODELING INSTRUCTOR-C Barber Carlisle MODELING INSTRUCTOR Work Phone: [facility] 02-25-2023 11:49-0400 Diastolic blood pressure 44 mm[Hg] MODELING INSTRUCTOR-C Barber Carlisle MODELING INSTRUCTOR Work Phone: [facility] 02-25-2023 11:49-0400 Inhaled oxygen flow rate 1 L/min MODELING INSTRUCTOR-C Barber Carlisle MODELING INSTRUCTOR Work Phone: [facility] 02-25-2023 11:49-0400 SaO2% (BldA) [Mass fraction] 98 % MODELING INSTRUCTOR-C Barber Carlisle MODELING INSTRUCTOR Work Phone: [facility] 02-25-2023 11:49-0400 Systolic blood pressure 103 mm[Hg] MODELING INSTRUCTOR-C Barber Carlisle MODELING INSTRUCTOR Work Phone: [facility] 02-25-2023 06:00-0400 Body mass index (BMI) [Ratio] 30.1 kg/m2 MODELING INSTRUCTOR-C Barber Carlisle MODELING INSTRUCTOR Work Phone: [facility] 02-25-2023 06:00-0400 Body weight 82.2 kg MODELING INSTRUCTOR-C Barber Carlisle MODELING INSTRUCTOR Work Phone: [facility] 02-21-2023 13:46-0400 Body height 165.1 cm MODELING INSTRUCTOR-C Barber Carlisle MODELING INSTRUCTOR Work Phone: [facility] 02-21-2023 07:00-0400 Inhaled oxygen concentration 50 % MODELING INSTRUCTOR-C Barber Carlisle MODELING INSTRUCTOR Work Phone: [facility] 02-18-2023 00:46-0400 Body temperature 96 [degF] MODELING INSTRUCTOR-C Barber Carlisle MODELING INSTRUCTOR Work Phone: [facility] 02-18-2023 00:46-0400 Diastolic blood pressure 65 mm[Hg] MODELING INSTRUCTOR-C Barber Carlisle MODELING INSTRUCTOR Work Phone: [facility] 02-18-2023 00:46-0400 Heart rate 70 /min MODELING INSTRUCTOR-C Barber Carlisle MODELING INSTRUCTOR Work Phone: [facility] 02-18-2023 00:46-0400 Respiratory rate 18 /min MODELING INSTRUCTOR-C Barber Carlisle MODELING INSTRUCTOR Work Phone: [facility] 02-18-2023 00:46-0400 SaO2% (BldA) [Mass fraction] 100 % MODELING INSTRUCTOR-C Barber Carlisle MODELING INSTRUCTOR Work Phone: [facility] 02-18-2023 00:46-0400 Systolic blood pressure 103 mm[Hg] MODELING INSTRUCTOR-C Barber Carlisle MODELING INSTRUCTOR Work Phone: [facility] 02-17-2023 22:25-0400 Inhaled oxygen concentration 100 % MODELING INSTRUCTOR-C Barber Carlisle MODELING INSTRUCTOR Work Phone: [facility] 02-17-2023 22:17-0400 Body height 165.1 cm MODELING INSTRUCTOR-C Barber Carlisle MODELING INSTRUCTOR Work Phone: [facility] 02-17-2023 22:17-0400 Body mass index (BMI) [Ratio] 33.8 kg/m2 MODELING INSTRUCTOR-C Barber Carlisle MODELING INSTRUCTOR Work Phone: [facility] 02-17-2023 22:17-0400 Body weight 92.3 kg MODELING INSTRUCTOR-C Barber Carlisle MODELING INSTRUCTOR Work Phone: [facility] 01-11-2023 13:49-0500 Body mass index (BMI) [Ratio] 32.5 kg/m2 MODELING INSTRUCTOR-C Barber Carlisle MODELING INSTRUCTOR Work Phone: [facility] 01-11-2023 13:49-0500 Body temperature 98.5 [degF] MODELING INSTRUCTOR-C Barber Carlisle MODELING INSTRUCTOR Work Phone: [facility] 01-11-2023 13:49-0500 Body weight 88.45 kg MODELING INSTRUCTOR-C Barber Carlisle MODELING INSTRUCTOR Work Phone: [facility] 01-11-2023 13:49-0500 Diastolic blood pressure 71 mm[Hg] MODELING INSTRUCTOR-C Barber Carlisle MODELING INSTRUCTOR Work Phone: [facility] 01-11-2023 13:49-0500 Heart rate 82 /min MODELING INSTRUCTOR-C Barber Carlisle MODELING INSTRUCTOR Work Phone: [facility] 01-11-2023 13:49-0500 Respiratory rate 17 /min MODELING INSTRUCTOR-C Barber Carlisle MODELING INSTRUCTOR Work Phone: [facility] 01-11-2023 13:49-0500 SaO2% (BldA) [Mass fraction] 98 % MODELING INSTRUCTOR-C Barber Carlisle MODELING INSTRUCTOR Work Phone: [facility] 01-11-2023 13:49-0500 Systolic blood pressure 110 mm[Hg] MODELING INSTRUCTOR-C Barber Carlisle MODELING INSTRUCTOR Work Phone: [facility] 11-11-2022 10:49-0500 Body height 165 cm MODELING INSTRUCTOR-C Barber Carlisle MODELING INSTRUCTOR Work Phone: [facility] Work Phone: 11-11-2022 10:35-0500 Body mass index (BMI) [Ratio] 31.9 kg/m2 MODELING INSTRUCTOR-C Barber Carlisle MODELING INSTRUCTOR Work Phone: [facility] 11-11-2022 10:35-0500 Body temperature 98 [degF] MODELING INSTRUCTOR-C Barber Carlisle MODELING INSTRUCTOR Work Phone: [facility] 11-11-2022 10:35-0500 Body weight 87.08 kg MODELING INSTRUCTOR-C Barber Carlisle MODELING INSTRUCTOR Work Phone: [facility] 11-11-2022 10:35-0500 Diastolic blood pressure 70 mm[Hg] MODELING INSTRUCTOR-C Barber Carlilse MODELING INSTRUCTOR Work Phone: [facility] 11-11-2022 10:35-0500 Heart rate 82 /min MODELING INSTRUCTOR-C Barber Carlisle MODELING INSTRUCTOR Work Phone: [facility] 11-11-2022 10:35-0500 Respiratory rate 18 /min MODELING INSTRUCTOR-C Barber [place] MODELING INSTRUCTOR Work Phone: [facility] 11-11-2022 10:35-0500 SaO2% (BldA) [Mass fraction] 91 % MODELING INSTRUCTOR-C Barber Lorethan MODELING INSTRUCTOR Work Phone: [facility] 11-11-2022 10:35-0500 Systolic blood pressure 115 mm[Hg] MODELING INSTRUCTOR-C Barber Carlisle MODELING INSTRUCTOR Work Phone: [facility] 07-27-2022 09:29-0400 Heart rate 93 /min DR TRACE MATTHEWS MD [address] 07-27-2022 09:13-0400 Body temperature 96.8 [degF] DR TRACE MATTHEWS MD [address] [place] [address] 07-27-2022 09:13-0400 Diastolic Blood Pressure NBP [address] TRACE MATTHEWS MD [address] [place] [address] 07-27-2022 09:13-0400 Heart rate 99 /min DR TRACE MATTHEWS MD [address] 07-27-2022 09:13-0400 Mean blood pressure 83 mm[Hg] DR TRACE MATTHEWS MD [address] [place] [address] 07-27-2022 09:13-0400 Reason For Taking VItal Signs DR TRACE MATTHEWS MD [address] [place] [address] 07-27-2022 09:13-0400 Systolic Blood Pressure NBP [address] TRACE MATTHEWS MD [address] [place] [address] 07-27-2022 04:38-0400 Body temperature 97.7 [degF] DR TRACE MATTHEWS MD [address] [place] [address] 07-27-2022 04:38-0400 Diastolic Blood Pressure NBP [address] TRACE MATTHEWS MD [address] 07-27-2022 04:38-0400 Heart rate 79 /min DR TRACE MATTHEWS MD [address] [place] [address] 07-27-2022 04:38-0400 Mean blood pressure 75 mm[Hg] DR TRACE MATTHEWS MD [address] [place] [address] 07-27-2022 04:38-0400 Reason For Taking VItal Signs DR TRACE MATTHEWS MD [address] [place] [address] 07-27-2022 04:38-0400 Respiratory rate 16 /min DR TRACE MATTHEWS MD [address] [place] [address] 07-27-2022 04:38-0400 Systolic Blood Pressure NBP [address] TRACE MATTHEWS MD [address] [place] [address] 07-26-2022 21:08-0400 Body temperature 98.24 [degF] DR TRACE MATTHEWS MD [address] [place] [address] 07-26-2022 21:08-0400 Diastolic Blood Pressure NBP [address] TRACE MATTHEWS MD [address] [place] [address] 07-26-2022 21:08-0400 Heart rate 113 /min DR TRACE MATTHEWS MD [address] [place] [address] 07-26-2022 21:08-0400 Mean blood pressure 74 mm[Hg] DR TRACE MATTHEWS MD [address] [place] [address] 07-26-2022 21:08-0400 Reason For Taking VItal Signs DR TRACE MATTHEWS MD [address] [place] [address] 07-26-2022 21:08-0400 Respiratory rate 18 /min DR TRACE MATTHEWS MD [address] [place] [address] 07-26-2022 21:08-0400 Systolic Blood Pressure NBP [address] TRACE MATTHEWS MD [address] [place] [address] 07-26-2022 16:00-0400 Respiratory rate 16 /min DR TRACE MATTHEWS MD [address] [place] [address] 07-26-2022 09:18-0400 Heart rate 100 /min DR TRACE MATTHEWS MD [address] [place] [address] 07-26-2022 00:35-0400 Diastolic blood pressure 52 mm[Hg] DR TRACE MATTHEWS MD [address] [place] [address] 07-26-2022 00:35-0400 Mean blood pressure 71 mm[Hg] DR TRACE MATTHEWS MD [address] [place] [address] 07-26-2022 00:35-0400 Systolic blood pressure 108 mm[Hg] DR TRACE MATTHEWS MD [address] [place] [address] 07-25-2022 07:55-0400 Heart rate 86 /min DR TRACE MATTHEWS MD [address] [place] [address] 07-24-2022 23:40-0400 Diastolic blood pressure 57 mm[Hg] DR TRACE MATTHEWS MD [address] [place] [address] 07-24-2022 23:40-0400 Mean blood pressure 81 mm[Hg] DR TRACE MATTHEWS MD [address] [place] [address] 07-24-2022 23:40-0400 Systolic blood pressure 128 mm[Hg] DR TRACE MATTHEWS MD [address] [place] [address] 07-24-2022 20:26-0400 Diastolic blood pressure 54 mm[Hg] DR TRACE MATTHEWS MD [address] [place] [address] 07-24-2022 20:26-0400 Mean blood pressure 77 mm[Hg] DR TRACE MATTHEWS MD [address] [place] [address] 07-24-2022 20:26-0400 Systolic blood pressure 124 mm[Hg] DR TRACE MATTHEWS MD [address] [place] [address] 07-21-2022 13:01-0400 Body temperature 96.62 [degF] DR TRACE MATTHEWS MD [address] [place] [address] 07-15-2022 11:49-0400 Diastolic blood pressure 45 mm[Hg] DR TRACE MATTHEWS MD [address] [place] [address] 07-15-2022 11:49-0400 Mean blood pressure 59 mm[Hg] DR TRACE MATTHEWS MD [address] [place] [address] 07-15-2022 11:49-0400 Systolic blood pressure 106 mm[Hg] DR TRACE MATTHEWS MD [address] [place] [address] 07-15-2022 09:23-0400 Diastolic blood pressure 80 mm[Hg] DR TRACE MATTHEWS MD [address] [place] [address] 07-15-2022 09:23-0400 Mean blood pressure 111 mm[Hg] DR TRACE MATTHEWS MD [address] [place] [address] 07-15-2022 09:23-0400 Systolic blood pressure 157 mm[Hg] DR TRACE MATTHEWS MD [address] [place] [address] 07-15-2022 08:53-0400 Diastolic blood pressure 85 mm[Hg] DR TRACE MATTHEWS MD [address] [place] [address] 07-15-2022 08:53-0400 Mean blood pressure 113 mm[Hg] DR TRACE MATTHEWS MD [address] [place] [address] 07-15-2022 08:53-0400 Systolic blood pressure 153 mm[Hg] DR TRACE MATTHEWS MD [address] [place] [address] 07-15-2022 04:10-0400 SaO2% (BldA) [Mass fraction] 97.5 % DR TRACE MATTHEWS MD [facility] 07-13-2022 19:08-0400 SaO2% (BldA) [Mass fraction] 98.9 % DR TRACE MATTHEWS MD [facility] 07-13-2022 17:39-0400 SaO2% (BldA) [Mass fraction] 99.1 % DR TRACE MATTHEWS MD [facility] 07-13-2022 16:25-0400 Body temperature 97.84 [degF] DR TRACE MATTHEWS MD [address] [place] [address] 07-13-2022 16:20-0400 Body temperature 97.77 [degF] DR TRACE MATTHEWS MD [facility] 07-13-2022 16:15-0400 Body temperature 97.7 [degF] DR TRACE MATTHEWS MD [facility] 07-13-2022 11:30-0400 Body height [address] TRACE MATTHEWS MD [address] [place] [address] 07-13-2022 11:30-0400 Body weight 98.[address] TRACE MATTHEWS MD [facility] 07-13-2022 11:30-0400 Body weight 36.25 kg/m2 DR TRACE MATTHEWS MD [facility] 07-11-2022 17:05-0400 Heart rate 97 /min DR TRACE MATTHEWS MD [facility] 07-11-2022 14:31-0400 Heart rate 91 /min DR TRACE MATTHEWS MD [facility] 07-11-2022 11:20-0400 Body weight 98.[address] TRACE MATTHEWS MD [facility] 07-11-2022 11:20-0400 Heart rate 92 /min DR TRACE MATTHEWS MD [facility] 07-11-2022 10:00-0400 Diastolic blood pressure 76 mm[Hg] MARIANA RAMOS MD [facility] 07-11-2022 10:00-0400 Heart rate 89 /min MARIANA RAMOS MD [facility] 07-11-2022 10:00-0400 Mean blood pressure 97 mm[Hg] MARIANA RAMOS MD [facility] 07-11-2022 10:00-0400 Systolic blood pressure 139 mm[Hg] MARIANA RAMOS MD [facility] 07-11-2022 08:30-0400 Diastolic blood pressure 74 mm[Hg] MARIANA RAMOS MD [facility] 07-11-2022 08:30-0400 Heart rate 92 /min MARIANA RAMOS MD [facility] 07-11-2022 08:30-0400 Respiratory rate 16 /min MARIANA RAMOS MD [facility] 07-11-2022 08:30-0400 Systolic blood pressure 147 mm[Hg] MARIANA RAMOS MD [facility] 07-11-2022 07:34-0400 Body temperature 98.42 [degF] MARIANA RAMOS MD [facility] 07-11-2022 07:34-0400 Diastolic blood pressure 86 mm[Hg] MARIANA RAMOS MD [facility] 07-11-2022 07:34-0400 Heart rate 92 /min MARIANA RAMOS MD [facility] 07-11-2022 07:34-0400 Mean blood pressure 110 mm[Hg] MARIANA RAMOS MD [facility] 07-11-2022 07:34-0400 Respiratory rate 18 /min MARIANA RAMOS MD [facility] 07-11-2022 07:34-0400 Systolic blood pressure 158 mm[Hg] MARIANA RAMOS MD [facility] 12-04-2021 13:19-0500 Diastolic blood pressure 79 mm[Hg] LEONA RIOS MD [facility] 12-04-2021 13:19-0500 Heart rate 101 /min LEONA RIOS MD [facility] 12-04-2021 13:19-0500 Reason For Taking VItal Signs LEONA RIOS MD [facility] 12-04-2021 13:19-0500 Respiratory rate 18 /min LEONA RIOS MD [facility] 12-04-2021 13:19-0500 Systolic blood pressure 140 mm[Hg] LEONA RIOS MD [facility] 12-04-2021 11:12-0500 Diastolic blood pressure 76 mm[Hg] LEONA RIOS MD [facility] 12-04-2021 11:12-0500 Heart rate 106 /min LEONA RIOS MD [facility] 12-04-2021 11:12-0500 Reason For Taking VItal Signs LEONA RIOS MD [facility] 12-04-2021 11:12-0500 Respiratory rate 18 /min LEONA RIOS MD [facility] 12-04-2021 11:12-0500 Systolic blood pressure 139 mm[Hg] LEONA RIOS MD [facility] 12-04-2021 08:20-0500 Body temperature 98.24 [degF] LEONA RIOS MD [facility] 12-04-2021 08:20-0500 Diastolic blood pressure 79 mm[Hg] LEONA RIOS MD [facility] 12-04-2021 08:20-0500 Heart rate 98 /min LEONA RIOS MD [facility] 12-04-2021 08:20-0500 Respiratory rate 16 /min LEONA RIOS MD [facility] 12-04-2021 08:20-0500 Systolic blood pressure 145 mm[Hg] LEONA RIOS MD [facility] 09-15-2021 20:35-0400 Diastolic blood pressure 80 mm[Hg] JANKI ADAMS MD [facility] 09-15-2021 20:35-0400 Heart rate 100 /min JANKI ADAMS MD [facility] 09-15-2021 20:35-0400 Mean blood pressure 103 mm[Hg] JANKI ADAMS MD [facility] 09-15-2021 20:35-0400 Respiratory rate 22 /min JANKI ADAMS MD [facility] 09-15-2021 20:35-0400 Systolic blood pressure 148 mm[Hg] JANKI ADAMS MD [facility] 09-15-2021 19:24-0400 SaO2% (BldA) [Mass fraction] 99 % JANKI ADAMS MD [facility] 09-15-2021 18:26-0400 Body temperature 99.14 [degF] JANKI ADAMS MD [facility] 09-15-2021 18:26-0400 Body weight 96 kg JANKI ADAMS MD [facility] 09-15-2021 18:26-0400 Diastolic blood pressure 88 mm[Hg] JANKI ADAMS MD [facility] 09-15-2021 18:26-0400 Heart rate 107 /min JANKI ADAMS MD [facility] 09-15-2021 18:26-0400 Respiratory rate 20 /min JANKI ADAMS MD [facility] 09-15-2021 18:26-0400 Systolic blood pressure 156 mm[Hg] JANKI ADAMS MD [facility] Encounters Encounter Date Encounter Type Care Provider Facility Start: 09-26-2025 End: 09-26-2025 ambulatory [facility] Facility:[facility] Start: 09-25-2025 ambulatory Jonathan Gilma Jewell ty:[facility] Start: 09-18-2025 ambulatory Jonathan Gilma Hinds Facili ty:[facility] Start: 09-11-2025 ambulatory Jonathan Gilma Hinds Facili ty:[facility] Start: 09-10-2025 End: 09-10-2025 Emergency department patient visit Royce Vigil Facility:[facility] Start: 09-09-2025 ambulatory Jonathan Gilma ELMORE Facili ty:[facility] Start: 09-06-2025 ambulatory Jonathan Gilma ELMORE Facili ty:[facility] Start: 09-04-2025 ambulatory Jonathan Gilma ELMORE Facili ty:[facility] Start: 11-01-2023 Patient encounter status Marlon little Dionna CHUTOOL AND EQUIPMENT RENTAL CLERK Work Phone: [facility] Work Phone: Start: 10-31-2023 End: 10-31-2023 [facility] Start: 10-31-2023 Evaluation and manag ement of inpatient VARSHA SOTELO [facility] Start: 10-31-2023 End: 10-31-2023 Office outpatient visit 25 minutes Elida CHUTOOL AND EQUIPMENT RENTAL CLERK Work Phone: [facility] Comment on above: Preop cardiovascular exam (Primary Dx); Chronic systolic heart failure (CMS/HCC) Start: 10-31-2023 End: 10-31-2023 Patient encounter status Elida L Dionna JO-TOOL AND EQUIPMENT RENTAL CLERK Work Phone: [facility] Work Phone: Start: 10-31-2023 End: 10-31-2023 ambulatory ELIDA VILLAREAL [facility] Start: 10-28-2023 End: 11-02-2023 ambulatory RITU HARRELL [facility] Start: 10-28-2023 End: 10-28-2023 ambulatory BARBER MORALES [facility] Start: 10-28-2023 End: 10-28-2023 Encounter for other preprocedural examination BARBER MORALES [facility] Start: 10-28-2023 End: 10-28-2023 Admission to establishment [facility] Work Phone: Start: 10-28-2023 End: 10-28-2023 Subsequent hospital visit by physician Marnie [id number] Cr Nonv1 Holter/Ecg Resource [facility] Comment on above: Encounter for preadm ission testing Start: 10-20-2023 End: 10-20-2023 ambulatory BARBER MORALES [facility] Start: 10-17-2023 End: 10-17-20[facility] Start: 10-17-2023 End: 10-17-2023 Office outpatient visit 40 minutes Varsha Sotelo MD Work Phone: [facility] Comment on above: Colovaginal fistula (Primary Dx) Start: 10-11-2023 End: 10-11-[address] Jonathan Dillard Sr. Work Phone: [facility] Work Phone: Start: 10-11-2023 End: 10-11-[address] Jonathan Dillard Sr. Work Phone: [facility] Work Phone: Start: 10-11-[address] Jonathan acevedo Sr. Work Phone: [facility] Start: 10-04-[address] Jonathan acevedo Sr. Work Phone: [facility] Start: 10-03-[address] Jonathan acevedo Sr. Work Phone: [facility] Start: 09-15-2023 End: 09-28-2023 Encounter for preprocedural cardiovascular examination VARSHA SOTELO [facility] Start: 09-15-2023 End: 09-28-2023 Evaluation and management of inpatient Velvet Jerez DO Work Phone: [facility] Start: 09-15-2023 End: 09-28-2023 Patient encounter status Velvet Jerez DO Work Phone: [facility] Start: 09-15-2023 Non-patient / Non-visit Dr. Kalen Quintero. Work Phone: [facility] Start: 09-15-2023 Non-patient / Non-visit Dr. Kalen Hinds Work Phone: [facility] Work Phone: Start: 09-14-2023 End: 09-15-2023 Emergency department patient visit Dr. Jonathan Dillard Sr. Work Phone: [facility] Work Phone: Start: 09-13-2023 End: 09-13-[address] Jonathan Dillard SrChe Work Phone: [facility] Work Phone: Start: 09-13-2023 End: 09-13-[address] Jonathan Dillard Sr. Work Phone: [facility] Start: 09-13-[address] Jonathan acevedo Sr. Work Phone: [facility] Start: 09-09-2023 End: 09-09-[address] Jonathan Dillard Sr. Work Phone: [facility] Spec[facility] Work Phone: Start: 09-08-[address] Jonathan Dillard Sr. Work Phone: [facility] Start: 09-08-2023 End: 09-08-[address] Jonathan Dillard Sr. Work Phone: [facility] Work Phone: Start: 08-31-2023 End: 08-31-2023 ambulatory [facility] Work Phone: Start: 08-31-2023 End: 08-31-2023 Departed Referred [facility] Start: 08-31-2023 Registered Referred MD Jonathan ELMORE [facility] Start: 08-29-2023 End: 08-30-[address] OSEI WOODWARD MD Facility:A Start: 08-29-2023 End: 08-29-[address] OSEI WOODWARD MD [facility] Start: 08-17-2023 End: 08-18-[address] MARK JEREZ MD Facility:[facility] Start: 08-17-2023 End: 08-17-[address] MARK JEREZ MD [facility] Start: 08-16-2023 End: 08-16-2023 ambulatory MD Jonathan Dillard [facility] Work Phone: Start: 08-16-2023 End: 08-16-2023 Departed Referred MD Jonathan ELMORE [facility] Start: 08-15-[address] MARK LOPEZ MD Facility:[facility] Start: 08-15-2023 End: 08-16-[address] MARK JEREZ MD Facility:[facility] Start: 08-15-2023 End: 08-15-[address] MARK JEREZ MD [facility] Start: 08-09-2023 End: 08-10-2023 Emergency department patient visit MD Jonathan ELMORE [facility] Work Phone: Start: 07-14-2023 End: 07-14-2023 Emergency department patient visit MODELING INSTRUCTOR-C Barber Carlisle MODELING INSTRUCTOR Work Phone: [facility] Work Phone: Start: 06-28-2023 End: 06-28-2023 ambulatory MD Jonathan Dillard [facility] Work Phone: Start: 06-28-2023 End: 06-28-2023 Departed Referred MD Jonathan ELMORE [facility] Start: 06-28-2023 Registered Referred MODELING INSTRUCTOR-C Flora Carlisle MODELING INSTRUCTOR Work Phone: [facility] Start: 06-13-2023 End: 06-13-2023 ambulatory MODELING INSTRUCTOR-C Barber Carlisle MODELING INSTRUCTOR Work Phone: [facility] Work Phone: Start: 06-13-2023 End: 06-13-2023 Departed Referred MODELING INSTRUCTOR-C Barber Carlisle MODELING INSTRUCTOR Work Phone: [facility] Start: 05-04-2023 End: 05-04-2023 Patient encounter procedure MODELING INSTRUCTOR-C Barber Carlisle MODELING INSTRUCTOR Work Phone: [facility] Work Phone: Start: 05-04-2023 Registered Recurring MODELING INSTRUCTOR-C Conor Carlisle MODELING INSTRUCTOR Work Phone: [facility] Start: 04-19-2023 End: 04-19-2023 Emergency department patient visit MODELING INSTRUCTOR-C Barber Carlisle MODELING INSTRUCTOR Work Phone: [facility] Start: 04-12-2023 End: 04-12-2023 ambulatory MODELING INSTRUCTOR-C Barber Carlisle MODELING INSTRUCTOR Work Phone: [facility] Work Phone: Start: 04-12-2023 End: 04-12-2023 Departed Referred MODELING INSTRUCTOR-C Barber Carlisle MODELING INSTRUCTOR Work Phone: [facility] Start: 04-04-2023 End: 04-04-2023 Patient encounter procedure MODELING INSTRUCTOR-C Barber Carlisle MODELING INSTRUCTOR Work Phone: [facility] Start: 04-04-2023 End: 04-04-2023 Patient encounter procedure MODELING INSTRUCTOR-C Barber Carlisle MODELING INSTRUCTOR Work Phone: [facility] Start: 03-28-2023 End: 03-28-2023 ambulatory MODELING INSTRUCTOR-C Barber Carlisle MODELING INSTRUCTOR Work Phone: [facility] Work Phone: Start: 03-28-2023 End: 03-28-2023 Departed Referred MODELING INSTRUCTOR-C Barber Carlisle MODELING INSTRUCTOR Work Phone: [facility] Start: 03-28-2023 Registered Referred MODELING INSTRUCTOR-C Flora Carlisle MODELING INSTRUCTOR Work Phone: [facility] Start: 03-23-2023 End: 03-23-2023 Patient encounter procedure MODELING INSTRUCTOR-C Barber Carlisle MODELING INSTRUCTOR Work Phone: [facility] Start: 03-18-2023 End: 03-18-2023 ambulatory MODELING INSTRUCTOR-C Barber Carlisle MODELING INSTRUCTOR Work Phone: [facility] Work Phone: Start: 03-18-2023 End: 03-18-2023 Patient encounter procedure MODELING INSTRUCTOR-C Barber Carlisle MODELING INSTRUCTOR Work Phone: [facility] Start: 03-09-2023 Registered Recurring MODELING INSTRUCTOR-C Conor Carlisle MODELING INSTRUCTOR Work Phone: [facility] Start: 03-09-2023 End: 03-09-2023 Patient encounter procedure MODELING INSTRUCTOR-C Barber Carlisle MODELING INSTRUCTOR Work Phone: [facility] Start: 03-08-2023 Registered Referred MODELING INSTRUCTOR-C Flora Carlisle MODELING INSTRUCTOR Work Phone: [facility] Start: 03-04-2023 Registered Referred MODELING INSTRUCTOR-C Flora Carlisle MODELING INSTRUCTOR Work Phone: [facility] Start: 02-28-2023 End: 02-28-2023 ambulatory MODELING INSTRUCTOR-C Barber Carlisle MODELING INSTRUCTOR Work Phone: [facility] Work Phone: Start: 02-28-2023 End: 02-28-2023 Departed Referred MODELING INSTRUCTOR-C Barber Carlisle MODELING INSTRUCTOR Work Phone: [facility] Start: 02-25-2023 Non-patient / Non-visit MODELING INSTRUCTOR-C Deepika Carlisle MODELING INSTRUCTOR Work Phone: [facility] Start: 02-24-2023 Non-patient / Non-visit MODELING INSTRUCTOR-C L asif Solisson MODELING INSTRUCTOR Work Phone: [facility] Start: 02-23-2023 Non-patient / Non-visit MODELING INSTRUCTOR-C L asif Solisson MODELING INSTRUCTOR Work Phone: [facility] Start: 02-23-2023 Non-patient / Non-visit MODELING INSTRUCTOR-C L asif Solisson MODELING INSTRUCTOR Work Phone: [facility] Start: 02-22-2023 Non-patient / Non-visit MODELING INSTRUCTOR-C L asif Solisson MODELING INSTRUCTOR Work Phone: [facility] Start: 02-22-2023 Non-patient / Non-visit MODELING INSTRUCTOR-C L indalivia Lorson MODELING INSTRUCTOR Work Phone: [facility] Start: 02-21-2023 Non-patient / Non-visit MODELING INSTRUCTOR-C L asif Solisson MODELING INSTRUCTOR Work Phone: [facility] Start: 02-21-2023 Non-patient / Non-visit MODELING INSTRUCTOR-C L indalivia Solisson MODELING INSTRUCTOR Work Phone: [facility] Start: 02-20-2023 Non-patient / Non-visit MODELING INSTRUCTOR-C L indsey Lorson MODELING INSTRUCTOR Work Phone: [facility] Start: 02-20-2023 Non-patient / Non-visit MODELING INSTRUCTOR-C L indalivia Lorson MODELING INSTRUCTOR Work Phone: [facility] Start: 02-20-2023 Non-patient / Non-visit MODELING INSTRUCTOR-C L indsey Lorson MODELING INSTRUCTOR Work Phone: [facility] Start: 02-19-2023 Non-patient / Non-visit MODELING INSTRUCTOR-C L asif Solisson MODELING INSTRUCTOR Work Phone: [facility] Start: 02-19-2023 Non-patient / Non-visit MODELING INSTRUCTOR-C L asif Solisson MODELING INSTRUCTOR Work Phone: [facility] Start: 02-18-2023 Non-patient / Non-visit MODELING INSTRUCTOR-C L asif Solisson MODELING INSTRUCTOR Work Phone: [facility] Start: 02-18-2023 Non-patient / Non-visit MODELING INSTRUCTOR-C L asif Solisson MODELING INSTRUCTOR Work Phone: [facility] Start: 02-18-2023 Non-patient / Non-visit MODELING INSTRUCTOR-C L indalivia Lorson MODELING INSTRUCTOR Work Phone: [facility] Start: 02-18-2023 End: 02-25-2023 Evaluation and management of inpatient MODELING INSTRUCTOR-C Barber Carlisle MODELING INSTRUCTOR Work Phone: [facility] Start: 02-07-2023 End: 02-07-2023 ambulatory MODELING INSTRUCTOR-C Barber Carlisle MODELING INSTRUCTOR Work Phone: [facility] Work Phone: Start: 02-07-2023 End: 02-07-2023 Departed Referred MODELING INSTRUCTOR-C Barber Carlisle MODELING INSTRUCTOR Work Phone: [facility] Start: 02-07-2023 Registered Referred MODELING INSTRUCTOR-C Flora Carlisle MODELING INSTRUCTOR Work Phone: [facility] Start: 01-11-2023 End: 01-11-2023 Patient encounter procedure MODELING INSTRUCTOR-C Barber Carlisle MODELING INSTRUCTOR Work Phone: [facility] Start: 01-11-2023 Registered Recurring MODELING INSTRUCTOR-C Conor Carlisle MODELING INSTRUCTOR Work Phone: [facility] Start: 11-11-2022 End: 11-11-2022 Patient encounter procedure MODELING INSTRUCTOR-C Barber Carlisle MODELING INSTRUCTOR Work Phone: [facility] Start: 11-01-2022 End: 11-01-2022 ambulatory MODELING INSTRUCTOR-C Barber Carlisle MODELING INSTRUCTOR Work Phone: [facility] Work Phone: Start: 11-01-2022 End: 11-01-2022 Departed Referred MODELING INSTRUCTOR-C Barber Carlisle MODELING INSTRUCTOR Work Phone: [facility] Start: 11-01-2022 Registered Referred MODELING INSTRUCTOR-C Flora Carlisle MODELING INSTRUCTOR Work Phone: [facility] [facility] Start: 10-26-2022 End: 10-27-2022 ambulatory TRACE MATTHEWS MD Facility:B Start: 10-26-2022 End: 10-26-[address] TRACE MATTHEWS MD [facility] Start: 10-05-2022 End: 10-05-2022 Patient encounter procedure RENETTA ASTORGA FRAME POLISHER-TOOL AND EQUIPMENT RENTAL CLERK [facility] Start: 10-05-2022 End: 10-06-2022 ambulatory MODELING INSTRUCTOR-C Barber Carlisle MODELING INSTRUCTOR Work Phone: [facility] Work Phone: Start: 10-05-2022 End: 10-05-2022 Departed Referred MODELING INSTRUCTOR-C Barber Carlisle MODELING INSTRUCTOR Work Phone: [facility] Start: 10-05-2022 Registered Referred [facility] Start: 09-29-2022 End: 09-29-2022 ambulatory MODELING INSTRUCTOR-C Barber Carlisle MODELING INSTRUCTOR Work Phone: [facility] Work Phone: Start: 09-29-2022 End: 09-29-2022 Departed Referred MODELING INSTRUCTOR-C Barber Carlisle MODELING INSTRUCTOR Work Phone: [facility] Start: 09-29-2022 Registered Referred [facility] Start: 09-09-2022 End: 09-09-2022 Patient encounter procedure RENETTA ASTORGA FRAME POLISHER[facility] Start: 09-08-2022 End: 09-08-2022 ambulatory [facility] Work Phone: Start: 09-08-2022 End: 09-08-2022 Departed Referred [facility] Start: 09-08-2022 Registered Referred [facility] Start: 09-01-2022 End: 09-01-2022 ambulatory [facility] Work Phone: Start: 09-01-2022 End: 09-01-2022 Departed Referred [facility] Start: 09-01-2022 Registered Referred [facility] Start: 08-26-2022 End: 08-26-2022 ambulatory [facility] Work Phone: Start: 08-26-2022 End: 08-26-2022 Departed Referred [facility] Start: 08-12-2022 End: 08-12-[address] TRACE MATTHEWS MD [facility] Start: 08-10-2022 End: 08-10-2022 Admission to same day surgery center BARBER CARLISLE FRAME POLISHER-TOOL AND EQUIPMENT RENTAL CLERK [facility] Start: 08-02-2022 Registered Referred [facility] Start: 07-14-2022 End: 07-14-2022 Admission to same day surgery center ARYAN VAZ FRAME POLISHER-TOOL AND EQUIPMENT RENTAL CLERK [facility] Start: 07-11-2022 End: 07-27-2022 Evaluation and management of inpatient DR TRACE MATTHEWS MD [facility] Start: 07-11-2022 End: 07-11-2022 Emergency department patient visit MARIANA RAMOS MD [facility] Start: 12-04-2021 End: 12-04-2021 Emergency department patient visit LEONA RIOS MD [facility] Start: 09-15-2021 End: 09-15-2021 Emergency department patient visit JANKI ADAMS MD [facility] Start: 09-15-2021 End: 09-15-2021 Patient encounter procedure BARBER CARLISLE FRAME POLISHER-TOOL AND EQUIPMENT RENTAL CLERK [facility] Start: 08-15-2017 Ambulatory [facility] Procedures Date Procedure Procedure Detail Performing [...] 09-28-2023 Sars-cov-2 detection by dna/rna Nancy Treviño FRAME POLISHER-[facility] Work Phone: Start: 09-28-2023 Blood count complete automated Fran Brenner MD Work Phone: Start: 09-27-2023 ECG 12-LEAD BARBER CARLISLE Start: 09-27-2023 PROVIDER CERTIFICATION BARBER CARLISLE Start: 09-27-2023 DISCHARGE PATIENT BARBER ORESTES Start: 09-27-2023 ADULT DISCHARGE DIET BARBER CARLISLE [...] 09-27-2023 Sars-cov-2 detection by dna/rna Nancy Treviño FRAME POLISHER-[facility] Work Phone: Start: 09-27-2023 CBC panel - Blood by Automated count BARBERALIVIA CARLISLE Start: 09-27-2023 Cyanocobalamin vitamin b-12 BARBER GOLD ON Start: 09-27-2023 FOLATE BARBER CARLISLE Start: 09-27-2023 Magnesium [Mass/volume] in Serum or Plasma BARBER CARLISLE Start: 09-27-2023 RENAL FUNCTION PANEL BARBER CARLISLE Start: 09-27-2023 Renal function panel Fran Brenner MD Work Phone: Start: 09-26-2023 TELEMETRY MONITORING BARBER CARLISLE Start: 09-26-2023 CT ANGIO CORONARY ART WITH HEARTFLOW IF SCORE >30% BARBERALIVIA CARLISLE Start: 09-26-2023 Cta hrt cornry art/bypass grfts contrst 3d post Kang Julian MD Work Phone: Start: 09-26-2023 ECG 12-LEAD BARBER CARLISLE Start: 09-26-2023 Ecg routine ecg w/least 12 lds trcg only w/o i&r Kang Julian MD Work Phone: Start: 09-26-2023 CBC panel - Blood by Automated count BARBER CARLISLE Start: 09-26-2023 Magnesium [Mass/volume] in Serum or Plasma BARBER ORESTES Start: 09-26-2023 RENAL FUNCTION PANEL BARBER ORESTES Start: 09-26-2023 Renal function panel Fran Brenner MD Work Phone: Start: 09-24-2023 CBC panel - Blood by Automated count BARBER ORESTES Start: 09-24-2023 Magnesium [Mass/volume] in Serum or Plasma BARBER ORESTES Start: 09-24-2023 RENAL FUNCTION PANEL BARBER ORESTES Start: 09-24-2023 Renal function panel Fran Brenner [...] Start: 09-23-2023 CARDIAC CATHETERIZATION - CORONARY FLORA QUIANA CARLISLE Start: 09-23-2023 CBC panel - Blood by Automated count BARBER CARLISLE Start: 09-23-2023 Magnesium [Mass/volume] in Serum or Plasma BARBER ORESTES Start: 09-23-2023 RENAL FUNCTION PANEL BARBER CARLISLE Start: 09-23-2023 Renal function panel Farn Brenner MD Work Phone: Start: 09-23-2023 Glucose [Mass/volume] in Serum or Plasma BARBER CARLISLE Start: 09-22-2023 Glucose quantitative blood xcpt reagent strip Varsha Sotelo MD Work Phone: Start: 09-22-2023 Glucose [Mass/volume] in Serum or Plasma BARBER CARLISLE Start: 09-22-2023 IP CONSULT TO INFECTIOUS DISEASES CARLTON CARLISLE Start: 09-22-2023 Glucose quantitative blood xcpt reagent strip Vasrha Sotelo MD Work Phone: Start: 09-22-2023 CASE REQUEST HEATING AND VENTILATION ENGINEER BARBER CARLISLE Start: 09-22-2023 Glucose [Mass/volume] in Serum or Plasma BARBER ORESTES Start: 09-22-2023 Glucose quantitative blood xcpt reagent strip Varsha Sotelo MD Work Phone: Start: 09-22-2023 Glucose [Mass/volume] in Serum or Plasma BARBER ORESTES Start: 09-22-2023 CBC panel - Blood by Automated count BARBER ORESTES Start: 09-22-2023 Magnesium [Mass/volume] in Serum or Plasma BARBER ORESTES Start: 09-22-2023 RENAL FUNCTION PANEL BARBER CARLISLE [...] in Serum or Plasma BARBER ORESTES Start: 09-20-2023 Glucose quantitative blood xcpt reagent [...] Start: 09-19-2023 US ABDOMEN LIMITED LIVER BARBER CARLISLE Start: 09-19-2023 VASC US ABDOMINAL/PELVIC DUPLEX COMPLETE BARBER CARLISLE Start: 09-19-2023 Glucose quantitative blood xcpt reagent strip Varsha Sotelo MD Work Phone: Start: 09-19-2023 Glucose quantitative blood xcpt reagent strip Varsha Sotelo MD Work Phone: Start: 09-19-2023 Us abdominal real time w/image limited Kang Julian MD Work Phone: Start: 09-19-2023 CT HEAD WO IV CONTRAST BARBER SOLISETHAN Start: 09-19-2023 BLOOD GAS ARTERIAL BARBER CARLISLE [...] Serum or Plasma BARBER ORESTES Start: 09-19-2023 Natriuretic peptide B [Mass/volume] in Blood BARBER CARLISLE Start: 09-19-2023 RENAL FUNCTION PANEL BARBER ORESTES Start: 09-19-2023 Glucose quantitative blood xcpt reagent strip Varsha Sotelo MD Work Phone: Start: 09-19-2023 XR CHEST 1 VIEW BARBER SOLISETHAN Start: 09-19-2023 Renal function panel Fran K Jinka MD Work Phone: Start: 09-19-2023 Glucose [Mass/volume] in Serum or Plasma BARBERALIVIA CARLISLE Start: 09-19-2023 Radiologic exam chest single view Rima rodriguez MD Work Phone: Start: 09-19-2023 Glucose quantitative blood xcpt reagent strip Varsha Sotelo MD Work Phone: Start: 09-19-2023 Glucose [Mass/volume] in Serum or Plasma BARBER LORETHAN Start: 09-19-2023 Glucose quantitative blood xcpt reagent [...] BARBER CARLISLE Start: 09-17-2023 RENAL FUNCTION PANEL BARBERALIVIA CARLISLE Start: 09-17-2023 Renal function panel Farn Brenner MD Work Phone: Start: 09-16-2023 Glucose [...] Differential panel - Blood BARBER ORESTES Start: 09-15-2023 Comprehensive metabolic 2000 panel - [...] of abdomen and pelvis with intravenous contrast MODELING INSTRUCTOR-C Barber Carlisle MODELING INSTRUCTOR Work Phone: Start: 04-19-2023 Computed tomography of abdomen and pelvis with intravenous contrast MODELING INSTRUCTOR-C Barber Irmaethan MODELING INSTRUCTOR Work Phone: Start: 04-12-2023 Urine culture MODELING INSTRUCTOR-C Barber Carlisle MODELING INSTRUCTOR Work Phone: Start: 03-18-2023 Bilateral mammography MODELING INSTRUCTOR-C Barber Carlisle MODELING INSTRUCTOR Work Phone: Start: 03-18-2023 Ultrasonography of breast MODELING INSTRUCTOR-C Barber Solisethan MODELING INSTRUCTOR Work Phone: Start: 03-18-2023 CT of soft tissues of neck with contrast MODELING INSTRUCTOR-C Barber Orestes MODELING INSTRUCTOR Work Phone: Start: 02-20-2023 Plain chest X-ray MODELING INSTRUCTOR-C Barber Carlisle MODELING INSTRUCTOR Work Phone: Start: 02-19-2023 Plain chest X-ray MODELING INSTRUCTOR-C Barber Carlisle MODELING INSTRUCTOR Work Phone: Start: 02-18-2023 Ultrasonography of thorax MODELING INSTRUCTOR-C Barber Carlisle MODELING INSTRUCTOR Work Phone: Start: 02-18-2023 CT of chest without contrast MODELING INSTRUCTOR-C Carlton Carlisle MODELING INSTRUCTOR Work Phone: Start: 02-17-2023 CT of head without contrast MODELING INSTRUCTOR-C Barber Carlisle MODELING INSTRUCTOR Work Phone: Start: 02-17-2023 Plain chest X-ray MODELING INSTRUCTOR-C Barber Carlisle MODELING INSTRUCTOR Work Phone: Start: 07-13-2022 Excision of cervical intervertebral disc BARBER CARLISLE FRAME POLISHER-TOOL AND EQUIPMENT RENTAL CLERK Comment on above: ACDF Appendectomy Kandi Sharma Appendectomy BARBER ORESTES FRAME POLISHER-TOOL AND EQUIPMENT RENTAL CLERK Comment on above: left water taken off Arthroscopic knee operation BARBER CARLISLE FRAME POLISHER-TOOL AND EQUIPMENT RENTAL CLERK Comment on above: right Arthroscopy of knee Kandi rai Bacteria identified in Blood by Culture MODELING INSTRUCTOR-C Barber Orestes MODELING INSTRUCTOR Work Phone: Cardiac catheter (physical object) BARBER SOLISETHAN FRAME POLISHER-TOOL AND EQUIPMENT RENTAL CLERK Comment on above: years ago Cardiac catheterization Marilyn Sharma Cataract surgery Kandi Castorena er Cholecystectomy Kandi Francis r Cholecystectomy BARBER ALLA ON FRAME POLISHER-TOOL AND EQUIPMENT RENTAL CLERK Clostridium difficile detection MODELING INSTRUCTOR-C Barber Carlisle MODELING INSTRUCTOR Work Phone: Colonoscopy Kandi Sharma Colonoscopy BARBER ORESTES FRAME POLISHER-TOOL AND EQUIPMENT RENTAL CLERK Esophagogastroduodenoscopy E gerson Sharma Esophagogastroduodenoscopy Deepika CARLISLE FRAME POLISHER-TOOL AND EQUIPMENT RENTAL CLERK Ligation of fallopian tube E gerson Sharma Ligation of fallopian tube Deepika CARLISLE FRAME POLISHER-TOOL AND EQUIPMENT RENTAL CLERK Lumpectomy of breast Kandi dorantes Lumpectomy of breast BARBER CARLISLE FRAME POLISHER-TOOL AND EQUIPMENT RENTAL CLERK Comment on above: left None (qualifier value) FLORA CARLISLE FRAME POLISHER-TOOL AND EQUIPMENT RENTAL CLERK Phacoemulsification of cataract with intraocular lens implantation BARBER CARLISLE FRAME POLISHER-TOOL AND EQUIPMENT RENTAL CLERK Comment on above: both eyes Urine culture Urine culture MODELING INSTRUCTOR-C Babrer Carlisle MODELING INSTRUCTOR Work Phone: Urine culture MODELING INSTRUCTOR-C Barber Solisethan MODELING INSTRUCTOR Work Phone: Viral antigen assay MODELING INSTRUCTOR-C Bhavna godfrey Solisethan MODELING INSTRUCTOR Work Phone: Plan of Treatment Date Care Activity Detail Author Start: 10-31-2024 Creatinine measurement Creatinine Le abiodun [facility] Start: 10-31-2024 Potassium measurement Potassium Arun poe [facility] Start: 09-20-2024 Echocardiography Echocardiogram [facility] Start: 06-20-2024 Glaucoma screening [facility] Start: 12-19-2023 Hemoglobin A1c measurement [facility] Start: 11-07-2023 End: 11-01-2024 Renal function 2000 panel - Serum or Plasma Renal Function Panel Lab Routine Chronic systolic heart failure (CMS/HCC) Expected: 11/07/2023 (Approximate), Expires: 11/01/2024 [facility] Service Area Work Phone: Comment on above: Expected: 11/07/2023 (Approximate), Expires: 11/01/2024 Start: 2023 End: 2023 Admission to same day surgery center 2023 10:00 AM EST - 2023 1:35 PM [place] [facility] [place] [address] [place] [id number] [place] [address] [address] Department [place] [address] Resection Laparoscopy Sigmoid Colon [73116 (CPT )] [facility] [place] Comment on above: Resection Laparoscop y Sigmoid Colon [53437 (CPT )] Start: 2023 End: 2023 Laparoscopy colectomy partial w/anastomosis Resection Laparoscopy Sigmoid Colon Diverticulitis 2023 10:00 AM EST Virtual [facility] Start: 2023 Subsequent hospital visit by physician 2023 8:30 AM EST Hospital Encounter [facility] [place] [address] [address] [place] [address] [place] [address] [address] Department of Surgery-Colorectal [place] [id number] [facility] [place] Start: 10-31-2023 End: 10-31-2023 Patient encounter procedure 10/31/2023 11:40 AM EST Office Visit [facility] [address] [address] Maulik [address] [place] [id number] Elida Villareal, FRAME POLISHER-TOOL AND EQUIPMENT RENTAL CLERK [address] [place] [address] [facility] Start: 10-28-2023 End: 10-28-2023 Admission to establishment 10/28/2023 8:45 AM EST Pre-Admission Testing [facility] [address] [place] [id number] [facility] Start: 10-17-2023 End: 10-17-2024 CBC W Auto Differential panel - Blood CBC and Auto Differential Lab Routine Colovaginal fistula Expected: 10/17/2023 (Approximate), Expires: 10/17/2024 [facility] Work Phone: Comment on above: Expected: 10/17/2023 (Approximate), Expires: 10/17/2024 Start: 10-17-2023 End: 10-17-2024 Comprehensive metabolic 2000 panel - Serum or Plasma Comprehensive metabolic panel Lab Routine Colovaginal fistula Expected: 10/17/2023 (Approximate), Expires: 10/17/2024 [facility] Service Area Work Phone: Comment on above: Expected: 10/17/2023 (Approximate), Expires: 10/17/2024 Start: 10-17-2023 End: 10-17-2024 Prealbumin [Mass/volume] in Serum or Plasma Prealbumin Lab Routine Colovaginal fistula Expected: 10/17/2023 (Approximate), Expires: 10/17/2024 [facility] Work Phone: Comment on above: Expected: 10/17/2023 (Approximate), Expires: 10/17/2024 Start: 10-17-2023 End: 10-17-2023 ambulatory [facility] Start: 10-12-2023 End: 10-12-2023 ambulatory [facility] [place] Start: 09-15-2023 [facility] Start: 09-15-2023 Bacteria identified in Blood by Culture Blood Culture [facility] Start: 09-15-2023 Hospital admission, emergency, from emergency room, medical nature [facility] Start: 09-15-2023 End: 09-15-2023 Blood culture [facility] Start: 09-15-2023 Blood culture [facility] Start: 09-08-2023 Patient referral [facility] Work Phone: Start: 08-31-2023 Bacteria identified in Urine by Culture [facility] Start: 08-31-2023 [facility] Start: 03-23-2023 Patient referral [facility] Work Phone: Start: 02-28-2023 [facility] Start: 02-27-2023 [facility] Start: 02-26-2023 [facility] Start: 02-25-[address] [facility] Start: 02-23-2023 Physiotherapy of chest [facility] Start: 02-21-2023 Care planning and pr oblem solving actions [facility] Start: 02-20-2023 End: 02-21-2023 [facility] Start: 02-20-2023 [facility] Start: 02-19-2023 Referral to sole layer hand [facility] Start: 02-18-2023 Vital signs measurements [facility] Start: 02-18-2023 Consultation [facility] Start: 02-18-2023 Speech therapy assessment [facility] Start: 02-18-2023 Following clinical p athway protocol [facility] Start: 02-18-2023 Assessment of risk o f venous thromboembolism [facility] Start: 02-18-2023 Assessment using assessment scale [facility] Start: 02-18-2023 Catheterization of vein [facility] Start: 02-18-2023 Consultation [facility] Start: 02-18-2023 Elevation of head of bed [facility] Start: 02-18-2023 Inhalation therapy procedure [facility] Start: 02-18-2023 Insertion of cathete r into peripheral vein [facility] Start: 02-18-2023 Measuring intake and output [facility] Start: 02-18-2023 Mouth care [facility] Start: 02-18-2023 Notification of physician [facility] Start: 02-18-2023 Oxygen therapy [facility] Start: 02-18-2023 Patient referral to dietitian [facility] Start: 02-18-2023 Providing care accor ding to standard [facility] Start: 02-18-2023 Referral to occupati onal therapist [facility] Start: 02-18-2023 Referral to service [facility] Start: 02-18-2023 Removal of urinary catheter [facility] Start: 02-18-2023 Speech therapy assessment [facility] Start: 02-18-2023 Vital signs measurements [facility] Start: 02-18-2023 End: 02-18-2023 [facility] Start: 02-18-2023 Bacterial nucleic ac id assay [facility] Start: 02-18-2023 Streptococcus pneumo niae antigen assay [facility] Start: 02-18-2023 [facility] Start: 02-18-2023 Verification routine [facility] Start: 04-07-2023 Admission procedure [facility] Start: 02-18-2023 CT of chest without contrast Chest without Contrast [facility] Start: 02-17-2023 End: 02-17-2023 Blood culture [facility] Start: 02-17-2023 Airway suction technique [facility] Start: 02-17-2023 [facility] Start: 2009 Hepatitis B Vaccines (1 of 3 - Risk 3-dose series) Hepatitis B Vaccines (1 of 3 - Risk 3-dose series) [facility] Start: 2009 [facility] Start: 1999 Zoster Vaccines (1 of 2) Zoste r Vaccines (1 of 2) [facility] Start: 1999 [facility] Start: 1989 Screening for malign ant neoplasm of breast [facility] Start: 1971 DTaP/Tdap/Td Vaccine s (1 - Tdap) DTaP/Tdap/Td Vaccines (1 - Tdap) [facility] Start: 1971 [facility] Start: 1968 Hepatitis A Vaccines (1 of 2 - Risk 2-dose series) Hepatitis A Vaccines (1 of 2 - Risk 2-dose series) [facility] Start: 1968 Urine screening for protein [facility] Start: 1968 [facility] Start: 1959 Diabetic foot examination [facility] Start: 1955 Pneumococcal Vaccine : 65+ Years (1 - PCV) Pneumococcal Vaccine: 65+ Years (1 - PCV) [facility] Start: 1955 [facility] Start: 05-04-1950 COVID-19 Vaccine (#1) COVID-19 Vacci ne (#1) [facility] Start: 05-04-1950 [facility] Start: 1949 Lipid panel [facility] Start: 1949 Medicare Annual Well ness Visit [facility] Start: 1949 Screening for malign ant neoplasm of colon [facility] Bacteria identified in Blood by Culture Blood Culture [facility] Bacteria identified in Sputum by Respiratory culture [facility] End: 09-23-2023 Cardiac catheterization study [facility] Work Phone: CBC panel - Blood by Automated count [facility] Work Phone: CBC W Auto Different ial panel - Blood [facility] Work Phone: CBC W Auto Different ial panel - Blood [facility] CBC W Auto Different ial panel - Blood [facility] End: 09-28-2023 Cobalamin (Vitamin B12) [Mass/volume] in Serum or Plasma [facility] Work Phone: CT Neck W contrast IV [facility] ECG 12 lead ECG 12 lead ECG Routine Encounter for preadmission testing 11/02/2023 2:17 PM EST [facility] Work Phone: Electrocardiogram, 1 2-lead PRN ACS symptoms [facility] Work Phone: Ferritin [Mass/volum e] in Serum or Plasma [facility] Work Phone: Ferritin [Mass/volum e] in Serum or Plasma [facility] Ferritin [Mass/volum e] in Serum or Plasma [facility] Folate [Mass/volume] in Serum or Plasma [facility] Work Phone: End: 09-28-2023 Folate [Mass/volume] in Serum or Plasma [facility] Work Phone: Glucose [Mass/volume ] in Serum or Plasma [facility] Work Phone: Glucose [Mass/volume ] in Serum or Plasma [facility] Work Phone: End: 09-15-2023 Incentive spirometry Instruct [facility] Work Phone: Iron and Iron bindin g capacity panel - Serum or Plasma [facility] Work Phone: Iron and Iron bindin g capacity panel - Serum or Plasma [facility] Iron and Iron bindin g capacity panel - Serum or Plasma [facility] Lactate dehydrogenas e measurement [facility] Work Phone: Lactate dehydrogenas e measurement [facility] Lactate dehydrogenas e measurement [facility] Legionella pneumophi la Ag [Presence] in Urine [facility] Magnesium [Mass/volu me] in Serum or Plasma [facility] Magnesium [Mass/volu me] in Serum or Plasma [facility] Service Area Work Phone: Magnesium [Mass/volu me] in Serum or Plasma [facility] Work Phone: Microscopic observat ion [Identifier] in Unspecified specimen by Gram stain Gram Stain [facility] Patient Education [facility] Work Phone: Patient referral [facility] Work Phone: Renal function 1999 panel - Serum or Plasma [facility] Work Phone: Renal function 1999 panel - Serum or Plasma [facility] Work Phone: Respiratory Culture Respiratory Culture [facility] Reticulocyte count [facility] Work Phone: Reticulocyte count [facility] Vitamin B12 measurement [facility] Work Phone: Vitamin B12 measurement [facility] Immunizations Immunization Date Immunization Notes Care Provider Kemar morales 08-09-2023 influenza virus vaccine, unspecified formulation DR OSEI WOODWARD MD [facility] 08-23-2022 influenza virus vaccine, unspecified formulation DR OSEI WOODWARD MD [facility] 11-28-2021 influenza virus vaccine, unspecified formulation MARIANA RAMOS MD [facility] 11-28-2021 influenza, injectabl e, quadrivalent, preservative free Jonathan Deperro CATARINA [facility] 11-28-2021 influenza, seasonal, injectable [facility] 09-16-2021 influenza, high dose seasonal, preservative-free; Translations: [Fluad Quadrivalent PF ] LEONA RIOS MD [facility] 08-27-2019 influenza, injectabl e, quadrivalent, preservative free; Translations: [Fluarix PF Quadrivalent ] BARBER CARLISLE FRAME POLISHER-TOOL AND EQUIPMENT RENTAL CLERK [facility] 09-13-2017 influenza virus vaccine, unspecified formulation MARIANA RAMOS MD [facility] 09-19-2014 influenza virus vaccine, unspecified formulation MARIANA RAMOS MD [facility] Payers Date Payer Category Payer Self-pay [id number] 2022 Private Health Insurance [id number] 2022 Unknown [id number] 2022 Unknown [id number] 2022 Medicare [id number].[facility] 2022 Medicare [id number] 1949 Unknown [id number] 1949 Unknown [id number] 1949 Unknown [id number] 1949 Unknown [id number] 27 1949 Unknown [id number] 27 1949 Unknown [id number] 27 1949 Unknown [id number] 27 1949 Unknown [id number] 244 1950 Unknown [id number] 2.16.840.1.907777.3.579.2.1 245 1950 Unknown [id number] 2.16.840.1.948552.3.579.2.1 245 1950 Unknown [id number] 2.16.840.1.524304.3.579.2.1 245 1950 Unknown [id number] 2.16.840.1.417963.3.579.2.1 245 1950 Unknown [id number] 2.16.840.1.005011.3.579.2.1 245 1950 Unknown [id number] 2.16.840.1.210953.3.579.2.1 245 1950 Unknown [id number] 2.16.840.1.381159.3.579.2.1 245 Private Health [facility] 18 [id number] Unknown Unknown [id number] Unknown [id number] 2.16.840.1.365578.3.579.2.4 62 Unknown [id number] 2.16.840.1.241917.3.579.2.4 62 Unknown [id number] 2.16.840.1.150977.3.579.2.4 62 Unknown [id number] 2.16.840.1.474547.3.579.2.4 62 Unknown [id number] 2.16.840.1.355854.3.579.2.4 62 Unknown [id number] 2.16.840.1.381142.3.579.2.4 62 Unknown [id number] 2.16.840.1.723398.3.579.2.4 62 Unknown [id number] 2.16.840.1.830610.3.579.2.4 62 Social History Date Type Detail Facility Start: 03-10-2020 End: 09-25-2023 Ex-smoker (finding) [facility] Start: 1950 Sex Assigned At Female A [facility] Start: 11-24-2021 End: 09-14-2023 Tobacco smoking status NHIS Unknown if ever smoked [facility] History of tobacco use Current smoker [facility] Work Phone: History of tobacco use Cigarette Smoker [facility] Work Phone: Start: 09-25-2023 Tobacco use and exposure Smoke less tobacco non-user [facility] Work Phone: Start: 09-28-2023 End: 10-20-2023 Alcohol intake Ex-drinker (finding) [facility] Work Phone: Start: 09-25-2023 End: 10-31-2023 History of Social function [facility] Work Phone: Start: 09-25-2023 End: 10-31-2023 Alcohol Use Disorder Identification Test - Consumption [AUDIT-C] [facility] Work Phone: How often to you hav e a drink containing alcohol? Never [facility] Work Phone: How many standard dr inks containing alcohol do you have on a typical day? [facility] Work Phone: Start: 09-25-2023 Tobacco Comment Patient quit y ears ago [facility] Work Phone: Start: 1950 [facility] Start: 09-06-2023 End: 10-31-2023 Exposure to SARS-CoV-2 (event) Not sure [facility] NEGATED: Highlighted row - - [...] Status Patient Identi fied Identification band, Verbal [facility] 08-15-2023 Functional Status Maintained [facility] 02-25-2023 Functional status Ambulates;Chair [facility] Work Phone: 07-27-2022 Functional Status Room check performed [facility] 07-26-2022 Functional Status Yes [facility] 07-26-2022 Functional Status Min A 1 [facility] 07-26-2022 Functional Status None [facility] 07-26-2022 Functional Status [facility] 07-26-2022 Functional Status [facility] 07-25-2022 Functional Status Ambulation in Room [facility] 07-25-2022 Functional Status [facility] 07-25-2022 [...] spital 07-18-2022 Functional Status [facility] 07-16-2022 Functional Status [facility] 07-16-2022 Functional Status [facility] 07-16-2022 Functional Status Special Call D evice Unable to use call device [facility] 07-16-2022 Functional Status [facility] 07[facility]16-2022 Functional Status [facility] 07-15-2022 Functional Status [facility] 07-15-2022 Functional Status [facility] 07-13-2022 Functional Status Patient Identi fied Identification band [facility] 07-13-2022 Functional Status Sensory Deficits None A [facility] 07-11-2022 Functional Status Standard Safet y ID band on, Call device within reach, Bed in low position, Wheels locked, Upper/Half-Length side-rails up, Phone within reach, personal items within reach [facility] NEGATED: Highlighted row Functional performance Functional status health issues are not documented Disease [facility] Work Phone: Mental Status Date Assessment Result Facility 08-15-2023 Mental Status Orientation [facility] 4 [facility] 08-09-2023 Cognitive function Level Of Cons ciousness Awake;Alert;Appropriate ;Follows Commands [facility] Work Phone: 02-25-2023 Cognitive function Voice/Name [facility] Work Phone: 07-27-2022 Mental Status Oriented x 4, Follows simple commands [facility] 07-26-[address] [facility] 07-26-[address] [facility] 07-26-[address] [facility] 07-11-2022 Mental Status Orientation [facility] x 4 [facility] NEGATED: Highlighted row Cognitive function [Interpretation] Cognitive status health issues are not documented Disease [facility] Work Phone: Clinical Notes 09-15-2021 to 10-31-2023 [...] Presented as a transfer from [facility] with left lower quadrant abdominal pain suspicious [...] Chronic Venous Insufficiency, RLE DVT, OA, GERD, ?[place], LUISA, HFrEF PSHx: Lumpectomy, Cholecystectomy, Appendectomy Presents from [facility] with nursing aid. Denies chest pain. Denies [...] IV Risk w/15% 30-day risk of , [place], or cardiac arrest. Order for BNP. documented in this encounter [facility] Work Phone: 10-31-2023 Instructions FREDY [...] Continue all other medications as ordered. Call [phone] to schedule follow up with Dr. Rowell ([place]). documented in this encounter [facility] Work Phone: 10-17-2023 History of [...] 2 times a day. 09/27/23 Nancy Treviño APRN-TOOL AND EQUIPMENT RENTAL CLERK bisacodyl (Dulcolax) 10 mg suppository Insert 1 [...] (65 Fe) Mg Per SNF List Historical ProviderMD folic acid (Folvite) 1 mg tablet Take [...] once daily. For 7 days ending 09/20/23. ([facility] Jie Probiotic 15 BILLION per [facility] list) 09/27/23 Nancy Treviño APRN-TOOL AND EQUIPMENT RENTAL CLERK magnesium hydroxide (Milk of Magnesia) 400 mg/5 mL suspension Take 30 mL by mouth once daily as needed for constipation. Historical Provider, metoprolol succinate XL (Toprol-XL) 100 mg 24 hr tablet Take 1 tablet (100 mg) by mouth once daily. Do not crush or chew. Do not start before September 28, 2023. 09/28/23 aNncy Treviño APRN-TOOL AND EQUIPMENT RENTAL CLERK ondansetron (Zofran) 4 mg tablet Take 1 [...] 2 times a day. 09/27/23 Nancy Treviño APRN-TOOL AND EQUIPMENT RENTAL CLERK sennosides-docusate sodium (Zarina-Colace) 8.6-50 mg tablet Take [...] Date: 09/28/2023 Interpreted By: Yair Pham and Hima Mccarty STUDY: CT ANGIO CORONARY ART WITH HEARTFLOW IF SCORE >30%; 09/26/2023 1:38 pm INDICATION: Signs/Symptoms:Reduced EF; Pre Op optimization. COMPARISON: None. ACCESSION NUMBER(S): [id number] ORDERING CLINICIAN: KANG JULIAN TECHNIQUE: Using multi-detector [...] Yair Pham 09/28/2023 11:26 AM Dictation workstation: [id number] Electrocardiogram, 12-lead PRN ACS symptoms Result Date: [...] colovesical colovaginal fistula. COMPARISON: None ACCESSION NUMBER(S): [id number] ORDERING CLINICIAN: KANG JULAIN TECHNIQUE: Multiplanar MRI of the pelvis was [...] Cristina MD. This study was interpreted at [facility], [place], [place]. MACRO: None Signed by: Clint Woods 09/25/2023 3:47 PM Dictation workstation: [id number] Transthoracic Echo (TTE) Complete Result Date: 09/20/2023 [facility], [address] [place] [address] and TRANSTHORACIC ECHOCARDIOGRAM REPORT Patient Name: POLI VALERIY Reading Physician: [id number] Kandi Roberts MD Study Date: 09/20/2023 Ordering Provider: [id number] VARSHA SOTELO MRN/PID: [id number] Fellow: Nurse: Mare Higgins Date of /Age: 11 1950 Stars Analytical Lead: Muna Clinton RDCS years Gender: F Additional Staff: Height: 165.10 cm Admit Date: 09/15/2023 Weight: 74.84 kg Admission Status: Inpatient - Routine BSA: 1.82 m2 Department Location: [facility] Non Invasive Blood Pressure: 126 /75 mmHg Study Type: TRANSTHORACIC ECHO (TTE) COMPLETE Diagnosis/ICD: Encounter for preprocedural cardiovascular examination-Z01.810 CPT Code: Echo Complete w Full Doppler-[id number] Patient History: Pertinent History: Breast cancer, HTN, [...] [place] Area A2C: 21.1 cm2 [place] A4C: 5.5 cm [place] A2C: 5.6 cm AORTA MEASUREMENTS: Normal Ranges: [...] 1.0 m/s (0.6-0.9m/s) PV Max P.0 mmHg [id number] Kandi Roberts MD Electronically signed on 09/20/2023 at 4:04:20 PM Final US abdomen limited liver Result Date: 09/20/2023 Interpreted By: Steven Chacon and Ebai Jerky STUDY: US ABDOMEN LIMITED LIVER; [facility] US ABDOMINAL/PELVIC DUPLEX COMPLETE; 09/19/2023 6:30 pm INDICATION: 72 y/o F with Signs/Symptoms:Throbocytopenia workup; Signs/Symptoms:per doctor request. COMPARISON: None. ACCESSION NUMBER(S): [id number]; [id number] ORDERING CLINICIAN: KANG JULIAN TECHNIQUE: Multiple images of the right upper quadrant were obtained. Gates scale, color Doppler and spectral Doppler waveform analysis was performed. This examination was interpreted at [facility]. FINDINGS: The liver measures 22.6 cm [...] as stated. This study was interpreted at [place], [place]. MACRO: None Signed by: Steven Chacon 09/20/2023 5:44 AM Dictation workstation: [id number] Vascular US abdomen/pelvis duplex complete Result Date: 09/20/2023 Interpreted By: Steven Chacon, and Kim Sheikh STUDY: [facility]BD[facility] ABDOMINAL/PELVIC DUPLEX COMPLETE; 09/19/2023 6:30 pm INDICATION: 72 y/o F with Signs/Symptoms:Throbocytopenia workup; Signs/Symptoms:per doctor request. COMPARISON: None. ACCESSION NUMBER(S): [id number]; [id number] ORDERING CLINICIAN: KANG JULIAN TECHNIQUE: Multiple images of the right upper quadrant were obtained. Gates scale, color Doppler and spectral Doppler waveform analysis was performed. This examination was interpreted at [facility]. FINDINGS: The liver measures 22.6 cm [...] as stated. This study was interpreted at [place], [place]. MACRO: None Signed by: Steven Chacon 09/20/2023 5:44 AM Dictation workstation: [id number] CT head wo IV contrast Result Date: 09/19/2023 Interpreted By: Susy Canales, STUDY: CT HEAD WO IV CONTRAST; 09/19/2023 3:43 pm INDICATION: Signs/Symptoms:R/o subdural hematoma, thrombocytopenia workup (fall several weeks ago). COMPARISON: None. ACCESSION NUMBER(S): [id number] ORDERING CLINICIAN: KANG JULIAN TECHNIQUE: Axial CT [...] Susy Canales 09/19/2023 4:06 PM Dictation workstation: [id number] XR chest 1 view Result Date: 09/19/2023 Interpreted By: Delfin Menezes and [place] Lesley STUDY: XR CHEST 1 VIEW; 09/19/2023 8:46 am INDICATION: Signs/Symptoms:copd on oxygen. COMPARISON: Outside hospital CT chest 03/20/2014 ACCESSION NUMBER(S): [id number] ORDERING CLINICIAN: RIMA APPLE FINDINGS: Single AP [...] as stated. This study was interpreted at [facility], [place], [place]. MACRO: None Signed by: Delfin Menezes 09/19/2023 9:36 AM Dictation workstation: [id number] Labs: Lab Results Component Value Date BILIDIR [...] this encounter 10/23/2023 documented in this encounter [facility] Work Phone: 09-28-2023 Nurse Note Discharge paper work sent with patient, along with belongings documented in this encounter [facility] Work Phone: 09-28-2023 History of Present illness Narrative Poli Ramirez is a 72 y.o. female on day 13 of admission presenting with Colovaginal fistula. SW briefly met with pt about discharge needs. Pt lives at the [facility] in [place], [place]. Pt can discharge in the next few days. Facility notified through [facility]. SW will follow and assist as needed. SYDNEY Seth. 09/23/2023 LLIY spoke to Caroline ([phone]) at the [facility] about pt's return. The facility [...] Seth. 09/26/2023 LILY spoke to Caroline from [facility] about pt's care. Pt has a cardiac scan today. ADOD is tomorr or Tuesday. Updated notes sent to pt's facility. SYDNEY Seth. 09/27/2023 Pt set for discharge today. Neg covid test (taken this morning) sent to [facility]. Transport requested for 1530. SW [...] about discharge needs. Pt lives at the [facility] in [place], [place]. Pt can discharge in the next few days. Facility notified through [facility]. SW will follow and assist as needed. SYDNEY Seth. 09/23/2023 LILY spoke to Caroline ([phone]) at the [facility] about pt's return. The facility [...] Seth. 09/26/2023 LILY spoke to Caroline from [facility] about pt's care. Pt has a cardiac scan today. ADOD is tomorrow or Tuesday. Updated notes sent to pt's facility. SYDNEY Seth. 09/27/2023 Pt set for discharge today. Neg covid test (taken this morning) sent to [facility]. Transport requested for 1530. SW [...] be rescheduled for this morning. SYDNEY Seth. [facility] HEART FAILURE PROGRESS NOTE Poli Ramirez/[id number] Admit Date: 09/15/2023 Hospital Length of Stay: [...] daily as needed for constipation. [DISCONTINUED] HYDROcodone-acetaminophen ([place]) 5-325 mg tablet Take 1 tablet by mouth every 6 hours if needed (moderate to severe pain). [DISCONTINUED] L. acidophilus-L. rhamnosus (Probiotic) 15 billion cell capsule Take 1 capsule by mouth once daily. For 7 days ending 09/20/23. ([facility] Ultimate Jie Probiotic 15 BILLION per [...] about discharge needs. Pt lives at the [facility] in [place], [place]. Pt can discharge in the next few days. Facility notified through [facility]. SW will follow and assist as needed. SYDNEY Seth. 09/23/2023 LILY spoke to Caroline ([phone]) at the [facility] about pt's return. The facility [...] Seth. 09/26/2023 LILY spoke to Caroline from [facility] about pt's care. Pt has a cardiac scan today. ADOD is tomorrow or Tuesday. Updated notes sent to pt's facility. SYDNEY Seth. 09/27/2023 Pt set for discharge today. Neg covid test (taken this morning) sent to [facility]. Transport requested for 1530. SW will let the facility know when transport is confirmed. SYDNEY Seth. 09/27/2023 Transport set for 1730 with [facility]. Care team and facility notified. SYDNEY Seth. Poli Ramirez is a 72 y.o. female on day 12 of admission presenting with Colovaginal fistula. SW briefly met with pt about discharge needs. Pt lives at the [facility] in [place], [place]. Pt can discharge in the next few days. Facility notified through [facility]. SW will follow and assist as needed. SYDNEY Seth. 09/23/2023 LILY spoke to Caroline ([phone]) at the [facility] about pt's return. The facility [...] Seth. 09/26/2023 LILY spoke to Caroline from [facility] about pt's care. Pt has a cardiac scan today. ADOD is tomorrow or Tuesday. Updated notes sent to pt's facility. SYDNEY Seth. 09/27/2023 Pt set for discharge today. Neg covid test (taken this morning) sent to [facility]. Transport requested for 1530. SW [...] of occurrence. 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 Additionally, would recommend [...] if further questions. ID team A pager [phone]. For new consults, contact pager [phone]. Patient staffed with ID attendant Dr Agarwal [...] of Assistance 1: Minimum assistance Outcome Measures: [facility] Basic Mobility Turning from your back to [...] RW (Progressing) Start: 09/22/23 Expected End: 10/06/23 [facility] HEART FAILURE PROGRESS NOTE Poli Ramirez/[id number] Admit Date: 09/15/2023 Hospital Length of Stay: [...] than 70 and non-responsive or NPO HYDROcodone-acetaminophen ([place]) 5-325 mg tablet Take 1 tablet by [...] 15-20%. Similar findings on TTE report from [facility]. Currently she appears compensated. Unknown etiology currently. [...] about discharge needs. Pt lives at the [facility] in [place], [place]. Pt can discharge in the next few days. Facility notified through [facility]. SW will follow and assist as needed. SYDNEY Seth. 09/23/2023 LILY spoke to Caroline ([phone]) at the [facility] about pt's return. The facility [...] Seth. 09/26/2023 LILY spoke to Caroline from [facility] about pt's care. Pt has a cardiac scan today. ADOD is tomorrow or Tuesday. Updated notes sent to pt's facility. SYDNEY Seth. Poli Ramirez is a 72 y.o. female on day 11 of admission presenting with Colovaginal fistula. LILY briefly met with pt about discharge needs. Pt lives at the [facility] in [place], [place]. Pt can discharge in the next few days. Facility notified through [facility]. SW will follow and assist as needed. SYDNEY Seth. 09/23/2023 LILY spoke to Caroline ([phone]) at the [facility] about pt's return. The facility [...] presented as a transfer from [facility] due to left lower quadrant abdominal pain [...] presented as a transfer from [facility] due to left lower quadrant abdominal pain [...] PO PPI : Maintain stephens for decompression; HAND DRILLER ONC - likely no fistula to vagina [...] Dr. Subramanian. Rasheed Brandt MD Colorectal Surgery [facility] Pager [phone] Poli Ramirez is a 72 y.o. female [...] about discharge needs. Pt lives at the [facility] in [place], [place]. Pt can discharge in the next few days. Facility notified through [facility]. SW will follow and assist as needed. Susy Blunt [facility], AIR SUPPORT OPERATIONS OPERATOR. 09/23/2023 LILY spoke to Caroline ([phone]) at the [facility] about pt's return. The facility does not accept weekend discharges so pt will discharge back to facility on 09/26/2023. Pt will also need a negative covid test, taken same day. Care team notified. SW will arrange transport for midday 09/26. SW will follow and assist. SYDNEY Seth. [facility] HEART FAILURE PROGRESS NOTE Poli Ramirez/[id number] Admit Date: 09/15/2023 Hospital Length of Stay: 7 Primary Service: Colorectal surgery INTERVAL EVENTS / PERTINENT ROS: Records reviewed from [facility]. Patient is being planned for surgery for [...] 0644 09/19/23 1021 09/18/23 0543 09/17/23 0551 09/16/2354 09/15/232123 SODIUM mmol/L 146* 146* 144 146* 146* [...] days Lab Units 09/22/23 0832 09/21/23 0637 09/20/2344 09/19/23 1021 09/18/23 0543 09/17/23 0551 09/16/2354 09/15/232123 WBC AUTO x10*3/uL 4.7 5.0 4.3* [...] than 70 and non-responsive or NPO HYDROcodone-acetaminophen ([place]) 5-325 mg tablet Take 1 tablet by [...] to follow. Discussed with HF attending, Jeovanny Lawrence, PGY-4 Advanced Heart Failure Fellow Associated attestation [...] Time Calculation Start Time: 951 Stop Time: 100 Time Calculation (min): 12 min Assessment/Plan PT [...] Home Living: Home Living Type of Home: [facility] facility Home Adaptive Equipment: Wheelchair-manual, Walker rolling or standard Home Layout: One level Bathroom Shower/Tub: Walk-in shower Bathroom Toilet: Handicapped height Prior Level of Function: Prior Function Per Pt/Caregiver Report Level of [place]: Needs assistance with ADLs, Needs assistance with [...] extension and ankle DF 4/5) Outcome Measures: [facility] Basic Mobility Turning from your back to [...] about discharge needs. Pt lives at the [facility] in [place], [place]. Pt can discharge in the next few days. Facility notified through [facility]. SW will follow and assist as [...] intensity level of continued care (Return to detention with Low intensity therapy services) OT Recommended [...] Functional Limits Home Living: Type of Home: Half-Way facility Lives With: Alone Home Adaptive Equipment: Wheelchair-manual, Walker rolling or standard Home Layout: One level Home Access: No concerns Bathroom Shower/Tub: Walk-in shower Bathroom Toilet: Handicapped height Bathroom Equipment: Grab bars in shower, Built-in shower seat, Grab bars around toilet Home Living Comments: Living in detention Prior Function: Level of [place]: Needs assistance with ADLs, Needs assistance with [...] LUE LUE: Within Functional Limits Outcome Measures: [facility] Daily Activity Putting on and taking off [...] presented as a transfer from [facility] due to left lower quadrant abdominal pain [...] presented as a transfer from [facility] due to left lower quadrant abdominal pain [...] (09/23) : Monitor UOP and maintain stephens Boiler Room Operator onc consulted for vaginal bleeding, appreciate recs Ucx: e.fecium, awaiting sensitivities Heme/ID: Daily labs. Continue rocephin/flagyl Ppy: Lovenox 40mg daily, SCDs Special: Okay for shower Dispo: Continue care on RNF. Patient seen by and plans discussed with staff, Dr. Sotelo. Kang Julian MD Colorectal Surgery [facility] Pager [phone] Images from the original note were not [...] presented as a transfer from [facility] due to left lower quadrant abdominal pain suspicious for colovesical/colovaginal fistula and diverticulitis on CT. Subjective Boiler Room Operator Onc on board for vaginal bleeding, awaiting [...] presented as a transfer from [facility] due to left lower quadrant abdominal pain [...] today : Monitor UOP and maintain stephens Boiler Room Operator onc consulted for vaginal bleeding, appreciate recs MRI pelvis ordered Ucx Heme/ID: Daily labs. Continue rocephin/flagyl Ppy: Lovenox 40mg daily, SCDs Special: Okay for shower Dispo: Continue care on RNF. Patient seen by and plans discussed with staff, Dr. Sotelo. Jesus Newman, DO Colorectal Surgery [facility] Pager [phone] 09/20/23 3078 Discharge Planning Living Arrangements Other (Comment) (custodial) Support Systems Children Type of Residence custodial/residential care Patient expects to be discharged to: Return to detention- [facility] in [place], [place] Does the patient need discharge transport [...] for a colovesical/colovaginal fistuala. She resides at [facility] in [place], [place]. She would like to return there [...] presented as a transfer from [facility] due to left lower quadrant abdominal pain suspicious for colovesical/colovaginal fistula and diverticulitis on CT. Subjective Boiler Room Operator Onc on board for vaginal bleeding, awaiting [...] presented as a transfer from [facility] due to left lower quadrant abdominal pain [...] prealbumin : Monitor UOP and maintain stephens Boiler Room Operator onc consulted for vaginal bleeding, appreciate recs MRI pelvis ordered Ucx today Heme/ID: Daily labs. Continue rocephin/flagyl Ppy: Lovenox 40mg daily, SCDs Special: Okay for shower Dispo: Continue care on RNF. Patient seen by and plans discussed with staff, Dr. Sotelo. Kang Julian MD Colorectal Surgery [facility] Pager [phone] Images from the original note were not [...] presented as a transfer from [facility] due to left lower quadrant abdominal pain [...] presented as a transfer from [facility] due to left lower quadrant abdominal pain [...] Dr. Sotelo. Kang Julian MD Colorectal Surgery [facility] Pager [phone] Images from the original note were not [...] presented as a transfer from [facility] due to left lower quadrant abdominal pain [...] [P.O.:300; I.V.:2084.2 (27.8 mL/kg); IV Piggyback:100] Out: 2074 (27.7 mL/kg) [Urine:2075 (0.8 mL/kg/hr)] Weight: 74.8 [...] presented as a transfer from [facility] due to left lower quadrant abdominal pain [...] Dr. Sotelo. Fran Brenner MD Colorectal Surgery [place] Service Pager [phone] Images from the original note were not [...] presented as a transfer from [facility] due to left lower quadrant abdominal pain [...] Weight: 74.8 kg I/O this shift: In: 4.2 [P.O.:300; I.V.:1724.2] Out: 850 [Urine:850] Data Review: [...] presented as a transfer from [facility] due to left lower quadrant abdominal pain suspicious for colovesical/colovaginal fistula and diverticulitis on CT. Physical exam and imaging (review radiology) is suspicious for fistula. Will work on medical optimization and acquiring outside hospital colonoscopy results for further work-up. Will engage Dr. Apple for optimization, appreciate [facility]. Plan: Neuro: Continue current pain regimen with [...] Dr. Sotelo. Michelle Hendrickson MD Colorectal Surgery [place] Service Pager [phone] Pharmacy Medication History Review Poli Ramirez is a 72 y.o. female admitted for Colovaginal fistula. FLASK CARRIER Medication List has been updated as appears [facility] 09/14/23, 21:31:04 ET. The list below reflects the updated FLASK CARRIER list. Please review each medication in order [...] than 70 and non-responsive or NPO HYDROcodone-acetaminophen ([place]) 5-325 mg tablet Take 1 tablet by [...] [tizanidine] Not Specified Unknown Derrick Arriola PharmD, [facility] Transitions of Care Pharmacist Medication reconciliation complete Please reach out via Yozio for questions, or if no response call [employer] or Hiphunters. [facility] documented in this encounter [facility] Work Phone: 09-27-2023 Hospital course [...] presented as a transfer from [facility] with left lower quadrant abdominal pain suspicious [...] HYDROcodone-acetaminophen 5-325 mg tablet; Commonly known as: [place]; Take 1 tablet by mouth every 6 [...] once daily. For 7 days ending 09/20/23. ([facility] [employer]otic 15 BILLION per [...] appointments. FREDY Holcomb documented in this encounter [facility] Work Phone: 09-27-2023 Miscellaneous Notes Poli Ramirez is a 72 year old female with a past medical history significant for hypertension on Lasix and lisinopril, hyperlipidemia, COPD (on 2 L nasal cannula at home), type 2 diabetes (not on insulin at home), left breast cancer status post lumpectomy, pancytopenia, open cholecystectomy and appendectomy who presented as a transfer from [facility] with left lower quadrant abdominal pain suspicious [...] Lancaster MD MPH Gynecologic Oncology PGY7 Pager: [phone], Team Phone: [phone] Problem: Pain Goal: My pain/discomfort is manageable [...] NPO since 1200, plan for U/S around [phone]. PRN pain medication given per orders. Patient requesting lidocaine gel for vaginal area for pain at stephens site, notified. All needs met, WCTM. Please see media for colonoscopy note from 08/15/23 at [facility]. Patient transitioned to the colorectal surgery service. Acute care surgery will sign off at this time. Thank you for allowing us to take care of Ms. Ramirez and we wish the best for her. Appreciate colorectal surgery care. Og Luis MD PGY-1 General Surgery Acute Care Surgery [id number] Epic Chat Preferred Discussed terms of patient's [...] but that he is currently in a detention here in [place]. Also states that she has a daughter, Jocy Ramirez, who can make decisions for her. Does not have Jocy's number at this time, but states that she would be okay with surgical team calling her to let her know she is in the hospital at [facility]. Staci Degroot MD PGY-3 General Surgery documented in this encounter [facility] Work Phone: 09-23-2023 Consult note Associated Order (s): Inpatient consult to Infectious Diseases Inpatient consult to Infectious Diseases Consult performed by: Karina Dennison MD MPH Consult ordered by: Varsha Sotelo MD Reason for consult: Complicated Diverticulitis, MDR UTI History Of Present Illness Poli Rmairez is a 72 y.o. female [...] had a colonoscopy several weeks ago at [facility] for " work-up of the abdominal pain [...] colonic-vaginal vs colonic vesicular fistula. Transferred to [facility] 09/16 for surgical eval. Underwent MRI [...] pt remains HDS without fevers, leukocytosis . 11/2 Bcx ngtd. ID consulted for abx recs [...] than 70 and non-responsive or NPO HYDROcodone-acetaminophen ([place]) 5-325 mg tablet Take 1 tablet by [...] 72 hours Lab Units 09/23/23 0716 09/22/23 0809/21/23 0637 WBC AUTO x10*3/uL 4.9 4.7 [...] hours Lab Units 09/23/23 0709/22/23 0809/21/23 0637 ALBUMIN g/dL 2.9* 2.7* 2.7* Estimated [...] of occurrence. 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 Additionally, would recommend [...] if further questions. ID team A pager [phone]. For new consults, contact pager [phone]. Patient staffed with ID attendant Dr Agarwal [...] s/p lumpectomy, pancytopenia. She originally presented to [facility] with LLQ abdominal pain over the last 4 months. At [facility] a CT scan revealed chronic inflammation with bladder wall thickening, large diverticula with stool in sigmoid colon, and a likely benign mass in the spleen (present since previous scan in 2013). The scan was not able to exclude colovesical or colovaginal fistula. Patient had a colonoscopy several weeks ago at [facility] for work-up of the abdominal pain which was significant for a reported "obstructing mass". Per patient she needed surgery at this time, however, she was not medically optimized, so her surgeon "refused" to perform the operation. She denies previous cardiac history, chest pain, or dyspnea. During pre operative evaluation at [facility], she had a routine TTE which is [...] than 70 and non-responsive or NPO HYDROcodone-acetaminophen ([place]) 5-325 mg tablet 1 tablet, oral, Every [...] was refused from a surgical intervention at [facility] which sounds like it may have been due to her heart disease. 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 Still being worked up by primary team, no surgery planned as of yet #Hypertension #Hyperlipidemia #COPD on 2L chronically Recommendations: Please obtain her records from [facility] for any echos, or cardiac consultations/testing. Start [...] who is a transferred from [facility] with left lower quadrant abdominal pain and acute vaginal bleeding, with 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 AUB -postmenopausal bleeding, pelvic exam limited but unremarkable, given recent weight loss and poor appetite, symptoms c/f AUB-M - MRI ordered by primary team, will follow up and assess for endometrial biopsy - No active bleeding noted at bedside, recommend pad counts (notify Boiler Room Operator Onc team if >2pad/hr over 2hrs) Colovesical/Colovaginal [...] Dr. Osorio, will be formally staffed in Deidra Morris MD, PGY-2 Agree with above. Fistula possibly including the vagina and vaginal bleeding. Pelvic MRI without evidence of HAND DRILLER cancer. She should have an endometrial biopsy. If she is having surgery this hospitalization will perform while hospitalized, otherwise would do as an outpatient. We will be available if needed for surgery. Eric Osorio MD Subjective 72 y.o with h/o left breast cancer, HTN, COPD (on 2L NC at home), T2DM, chronic thrombocytopenia and anemia who is a transferred from [facility] for left lower quadrant abdominal pain with [...] applicatorful vaginally at bedtime every TUE and TH, for vaginal bleeding, for 1 [...] than 70 and non-responsive or NPO HYDROcodone-acetaminophen ([place]) 5-325 mg tablet Take 1 tablet by [...] found for: "LACTATE" documented in this encounter [facility] Work Phone: 09-22-2023 History and [...] s/p lumpectomy, pancytopenia. She originally presented to [facility] with LLQ abdominal pain over the last 4 months. At [facility] a CT scan revealed chronic inflammation with bladder wall thickening, large diverticula with stool in sigmoid colon, and a likely benign mass in the spleen (present since previous scan in 2013). The scan was not able to exclude colovesical or colovaginal fistula. Patient had a colonoscopy several weeks ago at [facility] for work-up of the abdominal pain which was significant for a reported "obstructing mass". Per patient she needed surgery at this time, however, she was not medically optimized, so her surgeon "refused" to perform the operation. She denies previous cardiac history, chest pain, or dyspnea. During pre operative evaluation at [facility], she had a routine TTE which is [...] than 70 and non-responsive or NPO HYDROcodone-acetaminophen ([place]) 5-325 mg tablet 1 tablet, oral, Every [...] was refused from a surgical intervention at [facility] which sounds like it may have been due to her heart disease. 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 Still being worked up by primary team, no surgery planned as of yet #Hypertension #Hyperlipidemia #COPD on 2L chronically Recommendations: Please obtain her records from [facility] for any echos, or cardiac consultations/testing. Start [...] included. Colorectal Surgery Consult H&P Poli Ramirez [phone] Consults Reason for admission: We were consulted [...] presents as a transfer from [facility] due to left lower quadrant abdominal pain suspicious for colovesical/colovaginal fistula and diverticulitis on CT. Patient reports left lower quadrant abdominal pain for the last 4 months. Pain worsened 2 nights ago at which time she presented to [facility]. Patient also reports 4 weeks ago she began having vaginal bloody discharge and dark brown/red urine with dysuria. Patient denies any difficulty urinating however she endorses the vaginal discharge/urine has a foul odor to it. Patient had a colonoscopy several weeks ago at [facility] for work-up of the abdominal pain which [...] 10 years that was reportedly normal. At [facility] a CT scan revealed chronic inflammation [...] presents as a transfer from [facility] due to left lower quadrant abdominal pain suspicious for colovesical/colovaginal fistula and diverticulitis on CT. Physical exam and imaging (review radiology) is suspicious for fistula. Will work on medical optimization and acquiring outside hospital colonoscopy results for further work-up. Will engage Dr. Apple for optimization, appreciate [facility]. Neuro: Continue current pain regimen with IV [...] Deepak Brenner MD, MD Colorectal Surgery [facility] Service Pager [phone] [facility] ACUTE CARE SURGERY - HISTORY AND PHYSICAL / CONSULT Patient Name: Poli Ramirez Admit Date: [id number] : 1950 AGE: 72 y.o. GENDER: female TODAY'S ASSESSMENT AND PLAN OF CARE: NPO w/ IVF IV ceftriaxone and metronidazole Pain and nausea control as needed Interdisciplinary care with Colorectal Surgery for further workup including imaging and/or colonoscopy Gina Rush MD [facility] [id number] CHIEF COMPLAINT/REASON FOR CONSULT: Poli Ramirez is a 72 yo F, medical history significant for HTN, HLD, COPD (on 2L NC at home), T2DM, left breast cancer (ER positive, T1c, N0, cM0) s/p left lumpectomy, pancytopenia, and open cholecystectomy, appendectomy, who was transferred from [facility] for an intraabdominal abscess, diverticulitis, and a [...] a colonoscopy a few weeks ago at [facility] but was told they did not reach the ileocecal valve due to an obstructing mass and no biopsies were taken. She adds she was referred to a surgeon at [facility] but says "the doctor refused surgery because [...] chemoprophylaxis, full code. documented in this encounter [facility] Work Phone: 09-15-2023 Discharge summary Note Date/Time September 15, 2023 1:09am [facility] Medical Records Department [address] [place] [address] Emergency Department Summary 09/15/23 MR#: [id number] Acct: [id number] Name: POLI RAMIREZ Rep #:[id number] : 1950 72 From: Calvin Hester DO PCP: Dr. Jonathan Dillard Sr., DO Status:R EG ER Location: ED ADDENDUM by Dr. Jerad Thomas MD on 09/15/23 at 1326 Patient was turned over to me pending transfer. Physician at [facility] accepted. But there is no bed currently. [...] Patient is a 71-year-old female from the detention with past medical history of COPD on oxygen 06/06 as well as congestive heart failure hypertension and diabetes. She has been evaluated over the past 4 to 5 months for recurrent abdominal pain and found to have chronic colitis. There is concern this could be related to a potential malignancy. The patient is on [place] secondary to this. Reportedly she recently was diagnosed with UTI as well and has been placed on antibiotics. Patient is complaining of persistent abdominal pain as well as vaginal bleeding [facility] Medical History Acute on chronic respiratory [...] bisacodyl 10 mg rectal suppository 10 mg AL DAILY PRN constipation 11/11/22 [History Last Taken [...] surgery Hx of cholecystectomy Social History housing: detention Smoking Status: Former smoker alcohol intake: never [...] reported the pain has been controlled with [place] and now is no longer controlling her [...] case was discussed with Dr. Landon/surgery from [facility]. She agrees to accept the patient in [...] (Auto) 70.5 H Lymph % (Auto) 19.5 [place] % (Auto) 7.8 Eos % (Auto) 0.8 [...] Clarity Clear Urine pH 6.0 Ur Specific [place] 1.010 Urine Protein 30 H Urine Glucose [...] Min MD at 2:10 EDT , ADDENDUM: 09/15/23 0222 IMPRESSION: 1. Findings consistent with acute / [...] above Results were Read Back by Jocy Mni MD to calvin hester DO, and understanding confirmed on 09/15/2023 02:15:43 (ET). Electronically Signed: Jocy Min MD at 2:10 EDT , Management Discussion w/another healthcare provider: [facility] Specialist and Other Discharge Plan Triage Chief Complaint: Abd Pain ED Provider: Calvin Hester Dx/Rx/DC Orders Clinical Impression: Type 2 diabetes mellitus, Abscess of intestine, COPD (chronic obstructive pulmonary disease), Chronic anemia Prescriptions: No Action bisacodyl 10 mg suppository 10 mg AL DAILY PRN (Reason: constipation) cranberry 400 mg [...] Disposition Disposition: Acute Care Hospital Discharge Location: [facility] What to do if you have Problems For any increased pain, shortness of breath, bleeding, nausea or vomiting, chestpain, or any unexpected problems, contact your Primary Care Provider. Call [facility] ([phone]) or report to the closest Emergency Room. Call 911 if necessary. 09/15/23 0535 <Electronically signed by Calvin Hester DO> Cosigner Signature (if applicable): CC: Dr. Jonathan Dillard Sr., DO ~ Signed [facility] Work Phone: 1(939) 390-480410-06-2023 Evaluation + Plan note Future Scheduled Tests Radiology* MRI Pancreas 08/19/23 [facility] 10-04-2023 Note ORIGINAL EXAMINATION: BARIUM ENEMA08/17/2023 12:07 [...] Sign Date: 08/17/2023 3:50:07 PM Ordering Provider: [facility] Hospital Discharge instructions Patient Education [...] including vitamins, herbs, eye drops, creams, and fdsb-oas-hoenoog medicines. Any blood disorders you have. Any [...] provider tells you to take them. ?Taking vjsf-flo-tqvkqvl medicines, vitamins, herbs, and supplements. Follow instructions [...] Document Reviewed: 03/06/2019 Elsevier Patient Education 2020 Loccit (ML4D). 08/15/2023 12:07:59 Barium Enema Barium Enema A [...] including vitamins, herbs, eye drops, creams, and xagu-iky-bnlemrg medicines. Any blood disorders you have. Any [...] provider tells you to take them. ?Taking gnbv-iwv-eldbzrj medicines, vitamins, herbs, and supplements. Follow instructions [...] 10/28/2001 Document Revised: 03/06/2019 Document Reviewed: 03/06/2019 [employer] Patient Education 2020 [employer] (ML4D). 08/15/2023 12:02:48 Monitored Anesthesia Care, Care After [...] before eating solid foods. General instructions Take zftm-ule-zttrmam and prescription medicines only as told by [...] 02/20/2017 Document Revised: 01/29/2019 Document Reviewed: 02/20/2017 [employer] Patient Education 2020 [employer] (ML4D). 08/15/2023 12:02:43 Colonoscopy, Adult, Care After Colonoscopy, [...] a slower pace than normal. ?Eat soft, blrj-zl-gyqxhe foods. Take mpyy-dec-ivjxeyb or prescription medicines only as told by [...] 06/14/2005 Document Revised: 08/23/2018 Document Reviewed: 01/11/2017 [employer] Patient Education 2020 Loccit (ML4D). Follow Up Care 08/09/2023 08:04:53 With:MARK JEREZ Address: [address] [place] [phone] Business (1) When: Unknown Comments:KEEP YOUR APPOINTMENT FOR YOUR MRI ON TUESDAY AT [address] JEREZ WOULD LIKE POIL TO HAVE A BARIUM EMEMA ON TUESDAY. THE ORDER IS IN THE FOLDER. PLEASE CALL DR. JEREZ'S OFFICE TO GET THE ORDERS FOR A PREP. PLEASE CALL THE NUMBER ON THE ORDER TO SCHEDULE THE BARIUM ENEMA [phone]. [facility] 10-02-2023 Evaluation + Plan noteExtracted from: Title:Clinical Document Author:MARK JEREZ Date:08/15/23 VA[facility] ADMISSION HISTORY AN D PHYSICIAL CHIEF COMPLAINT: HISTORY OF PRESENT ILLNESS: REVIEW OF SYSTEMS: ACTIVE PROBLEMS: (32) Anemia (793046627) Arthritis (7507538) Benign colon polyp (2696599314) Breast cancer (808521773) Cervical spine fracture (591099455) Chest pain (30392365) Chronic anemia (539677055) Chronic back pain (977239165) COPD (66420024) Dependence on wheelchair (861071806) Diabetes mellitus type 2 (022800389) Diabetic neuropathy (781768590) Diarrhea (310329137) Dysphagia (16953820) Edema of both lower extremities (572014292) Encounter for surgical aftercare following surgery of nervous system (117947157) General weakness (03786400) GERD (gastroesophageal reflux disease) ([id number]) Glasses (0197292479) Goiter (2779569) Hard of hearing (980744745) Heart attack (77150635) History of radiation exposure (710966517) Hx of thrombocytopenia (324738339) Hyperlipidemia (87751818) Hypertension, essential (30112640) Incontinence of urine (8711846821) Osteoarthritis (1961200944) Oxygen dependent (1234693504) Pancreatic cyst (79028264) Rheumatic fever (06001016) Urinary incontinence (9998683334) MEDICATIONS: Active Inpt Meds: None Active PRN Meds: None One Time Meds: None Active IV Meds: Lactated Ringers Infusion 1,000 mL (LR 1,000 mL) Start: 08/15/23 10:41:00 EDT, Rate: 50 mL/hr, 08/15/23 10:41:00 EDT ALLERGIES: (2) Flexeril Zanaflex FAMILY HISTORY: SOCIAL HISTORY: PHYSICAL EXAM: VITALS: XfhdmzMzvpYBPkdywPRPzR2FQX7FrwtIf(kg) 08/15 10:1936.7--516477FZ75/02 95.0 08/15 95.0 24 Hr Tmax: 36.7 [...] LABS: 36hr Labs 08/15 1041 Blood Glucose, Rwumomcni602F Blood Glucose, Prfprydgh667I DIAGNOSTICS: IMPRESSION: PLAN: History and Physical Update I have examined the patient; reviewed the H&P and there are no changes to the H&P unless noted below. Future Appointments Appointment Date:08/17/2023 10:30:00 AM Scheduled Provider: Location:[facility] Appointment Type:XR Barium Enema Complete Appointment Date:08/19/2023 02:30:00 PM Scheduled Provider: Location:[facility] Appointment Type:MRI Pancreas Future Scheduled Tests Radiology* XR Barium Enema Complete 08/17/23 * MRI Pancreas 08/19/23 [facility] 10-02-2023 Summary of episode note Discharge Instructions Thank you for allowing [facility] to assist you with your healthcare needs. The following is importantdischarge information regarding your hospital visit. Your Care Team BARBER CARLISLE What to do next Scheduled Follow-Up Appointments Appointment Type When Where Contact InformationMRI Pancreas 08/19/2023 02:30 PM [facility] Radiology [phone] Follow Up Appointments Follow Up with MARK JEREZ When Why: KEEP YOUR APPOINTMENT FOR YOUR MRI ON TUESDAY AT [address] JEREZ WOULD LIKE POLI TO HAVE A BARIUM EMEMA ON TUESDAY. THE ORDER IS IN THE FOLDER. PLEASE CALL DR. JEREZ'S OFFICE TO GET THE ORDERS FOR A PREP. PLEASE CALL THE NUMBER ON THE ORDER TO SCHEDULE THE BARIUM ENEMA [phone]. Where: [address] [place] [address]- [phone] Business (1) The Following Activity and Diet [...] including vitamins, herbs, eye drops, creams, and pjte-mrw-sntnobw medicines. Any blood disorders you have. Any [...] tells you to take them. ? Taking agpk-ykn-syjjfnv medicines, vitamins, herbs, and supplements. Follow instructions [...] 10/28/2001 Document Revised: 03/06/2019 Document Reviewed: 03/06/2019 [employer] Patient Education 2020 [employer]cit (ML4D). Barium Enema A barium enema is a [...] including vitamins, herbs, eye drops, creams, and bwsp-eqg-teeswoo medicines. Any blood disorders you have. Any [...] tells you to take them. ? Taking vhxt-rsj-oaqnebs medicines, vitamins, herbs, and supplements. Follow instructions [...] 10/28/2001 Document Revised: 03/06/2019 Document Reviewed: 03/06/2019 [employer] Patient Education 2020 [employer]cit (ML4D). Monitored Anesthesia Care, Care After These instructions [...] before eating solid foods. General instructions Take pgil-enf-nowtdky and prescription medicines only as told by [...] 02/20/2017 Document Revised: 01/29/2019 Document Reviewed: 02/20/2017 [employer] Patient Education 2020 [employer]cit (ML4D). Colonoscopy, Adult, Care After This sheet gives [...] slower pace than normal. ? Eat soft, vrjm-yj-pabfxv foods. Take ltlp-uew-gttvoif or prescription medicines only as told by [...] 06/14/2005 Document Revised: 08/23/2018 Document Reviewed: 01/11/2017 [employer] Patient Education 2020 [employer] Additional Information VACCINATE! IT SAVES LIVES! Members of the community who have not yet received the COVID-19 vaccine and would like to receive it can visit one of [facility] vaccine clinics. There are many vaccine clinic locations within the [facility]. For locations and available times, please visit [email or web address].[place].gov/. It is important to note that some COVID mobile vaccine clinics are held outdoors and may be canceled in rainy or stormy conditions. To learn more about pediatric vaccinations (ages 5-11), we invite you to visit the [facility] webpage. [email or web address].org/pages/[email or web address]-[email or web address]-Ujyscbinxw-Geuhh-[email or web address] stions.htmlTo learn more about the COVID-19 vaccine, we invite you to visit the CDC website for a list of frequently asked questions.https://www.cdc.gov/coronavirus/2019-ncov/vaccines/faq.html [facility] Patient Portal Access Instructions: Stay connected with your healthcare team and access your personal medical information anytime with the [facility] Patient Portal. Please follow the directions below to create your [facility] account: 1.Access the email account you provided upon registration to the hospital/physician office.2.Look for an invitation email from [facility].3.Open the email and access the invitation link: AcceptInvitation to [facility]4.Fill in the required quijano to create your account. To access your account, visit [facility] [employer] Click the blue button labeled "Access Patient Portal" and then log in with the username and password that you created in the steps above. You will be able to view your test results, lab results, a summary of your visits, upcoming appointments and more. There is also a convenient messaging option where you can send secure messages to your [employer]. In addition, you will have the ability to download any documents or summaries to your computer and/or send the information securely to a physician. Remember that your healthcare information is confidential, so carefully consider who you will allowto register on the [employer] Patient Portal for access to your information. You can also access the [employer] Patient Portal on the [employer]cy. Simply click on "Patient Portal" and then log into your account. If you would like to receive a full copy of your medical records, please contact the [facility] Medical Records Department by calling [phone], Tuesday through Tuesday between 8 a.m. and [...] Call your local pharmacy or go to [email or web address] to find one close to you.3.Make use of household items: Use cat litter or old coffee grounds to dispose medications if other options arenot available. Mix your drugs with these household products, seal them in an airtight container andthrow it into the garbage. Call [facility]: [phone] to be sure your drugs can be [...] that I should contact my d octor. Patient/Transmission Tester Signature: Date/Time: Relationship to Patient: Witness Name/Signature: Date/Time: [facility]10-02-2023 Nurse Progress note Attempted colonoscopy. Dr. Jerez ordered a Barium Enema. Exchange Engineer X-Rays taken. Radiologist stated tomuch air for a Barium Enema today. Dr. Jerez notified. Orders received. Digitally Signed by Amy Watters RN on 08/15/2023 11:54 AM [facility]10-02-2023 Note ORIGINAL HISTORY: Failed colonoscopy, stricture COMPARISON: [...] Sign Date: 08/15/2023 12:08:09 PM [facility]ing [facility]10-02-2023 Anesthesiology Consult note Patient: POLI RAMIREZ Age: 72 years Sex: Female : 1950 Associated Diagnoses: None Author: DELFIN RAM APRN-FILTRATION OPERATOR Assessment Postanesthesia assessment Vitals: Vital signs from [...] by DELFIN RAM on 08/15/2023 11:22 AM [facility]10-02-2023 Anesthesiology Consult note Patient: POLI RAMIREZ Age: [...] list: Medical Chronic anemia / SNOMED CT 529200363 / Confirmed Chronic back pain / SNOMED CT 631081732 / Confirmed COPD / SNOMED CT 09847632 / Confirmed Hypertension, essential / SNOMED CT 15621812 / Confirmed Cervical spine fracture / SNOMED CT 456786924 / Confirmed GERD (gastroesophageal reflux disease) / SNOMED CT [id number]-XH2C-LD239VH51NZ2 / Confirmed Goiter / SNOMED CT 3189346 / Confirmed Hyperlipidemia / SNOMED CT 28131790 / Confirmed Encounter for surgical aftercare following surgery of nervous system / SNOMED CT 913100434 / Confirmed Incontinence of urine / SNOMED CT 1032189416 / Confirmed, Active Problems (32) Anemia Arthritis [...] incontinence Histories Past Medical History: Active COPD (69188800) Chronic back pain (948973610) Resolved H/O hypercholesterolemia (0189701143): Resolved. Hypernatremia (6393851497): Resolved. Family History: Heart disease Father Brother Arthritis Daughter Stroke Mother Cancer Sister HTN - Hypertension Mother GERD (gastroesophageal reflux disease) Daughter Diverticulitis Daughter Procedure history: Cervical discectomy (120094601) on 07/13/2022 at 71 Years. Comments: 08/09/2022 11:44 Viji Diaz MAIL PROCESSING EQUIPMENT MECHANIC ACDF None (263171615). Appendectomy (537573957). Comments: 08/11/2017 12:13 SHAMA BOLTON left water taken off Tubal ligation (799964509). Cholecystectomy (12419304). Arthroscopic knee operation (9539953575). Comments: 12/24/2019 13:16 SHAMA Gabriel right Lumpectomy of breast (9935860201). Comments: 12/24/2019 13:16 SHAMA Gabriel left Phacoemulsification of cataract with intraocular lens implantation (0544486217). Comments: 12/24/2019 13:16 SHAMA Gabriel both eyes Colonoscopy (840415073). Esophagogastroduodenoscopy (995442607). Cardiac catheter (7804422465). Comments: 12/24/2019 13:17 SHAMA Gabriel years ago [...] Signs(last 24 hrs) Last Charted Heart Rate Srdvcvvtu20 bpm (AUG 15 11:15) Resp Rate H 21br/min (AUG 15 10:19) WEH217 mmHg (AUG 15 11:11) TSQ880 mmHg (AUG 15 11:11) BMI34.89 (OCT 02 10:29) Measurements from flowsheet : Measurements 08/15/2023 10:29 EDT Height 165 cm Admission Weight 95 kg [place] Body Weight 56.91 kg BSA Admission 2.02 Body Mass Index 34.89 kg/m2 08/15/2023 10:19 EDT Height 165 cm Admission Weight 95 kg [place] Body Weight 56.91 kg Admission Body Mass [...] mg mg 08/15/2023 11:12 EDT SN - [place] - Medication glucagon recombinant 1 mg SN - NJ - Route of Administration Intravenous SN - [place] - By (Single) SN - [place] - By (Single) SN - [place] - Time Administered 08/15/2023 11:11 08/15/2023 11:11 [...] propofol 50 mg mg 08/15/2023 11:01 EDT [place] History and Physical 08/15/2023 11:00 EDT SN [...] Surgeon SN - CAt - Role Performed Technical Laboratory Asst 1 SN - CAt - Role Performed Gasket Notcher SN - CAt - Role Performed FILTRATION OPERATOR 08/15/2023 11:00 EDT Heart Rate Monitored 96 [...] Person #2 We May Share AALIYAH [place] [phone] Designated Person #2 Relationship Daughter Height 165 cm Admission Weight 95 kg [place] Body Weight 56.91 kg BSA Admission 2.02 [...] Method Explanation, Printed materials Preferred Spoken Language [place] Preferred Written Language [place] Information Given by Patient Patient's Current Physicians Patient's Current Physicians Discharge To, Anticipated Home with family care Prev Test Positive/Diagnosis w/COVID-19 No Current Quarantine/Isolated any Illness No Any Contact with Sick Animals/Birds No Traveled Anywhere in Last 30 Days No N/A Personal Devices, Patient Valuables None Admission Note-Nursing Procedure/Therapy Intake 08/15/2023 10:19 EDT Height 165 cm Admission Weight 95 kg [place] Body Weight 56.91 kg Admission Body Mass [...] Quadrants Present Skin Temperature Warm Skin Description [place], Dry Skin Integrity Intact Mucous Membrane Color [place] Characteristics of Speech Clear Level of Consciousness [...] Allergies Yes Anesthesia Extension Set Applied Yes Plant Etiologist On Yes Colon Prep Results Excellent Consent [...] Void 08/15/2023 9:00 . Assessment and Plan [place] Society of Anesthesiologists (ASA) physical status classification: Class IV. Anesthetic Preoperative Plan Anesthetic technique: MAC. Informed consent: signed by patient. Digitally Signed by DELFIN RAM on 08/15/2023 11:21 AM [facility]10-02-2023 Anesthesiology Consult note Patient: POLI RAMIREZ Age: [...] by DELFIN RAM on 08/15/2023 11:19 AM [facility]10-02-2023 Note [place] ADMISSION HISTORY AND PHYSICIAL CHIEF COMPLAINT: HISTORY OF PRESENT ILLNESS: REVIEW OF SYSTEMS: ACTIVE PROBLEMS: (32) Anemia (899144006) Arthritis (1758836) Benign colon polyp (3537950983) Breast cancer (709365574) Cervical spine fracture (816188026) Chest pain (48742173) Chronic anemia (266909958) Chronic back pain (849440729) COPD (47654236) Dependence on wheelchair (444644554) Diabetes mellitus type 2 (167169016) Diabetic neuropathy (962371576) Diarrhea (956217963) Dysphagia (38770763) Edema of both lower extremities (555710250) Encounter for surgical aftercare following surgery of nervous system (195181182) General weakness (05646263) GERD (gastroesophageal reflux disease) (75UYA6Q1-28E7-3399-QI5R-CN840FF68SB9) Glasses (8095627348) Goiter (7757431) Hard of hearing (969594191) Heart attack (61154554) History of radiation exposure (278579647) Hx of thrombocytopenia (259667208) Hyperlipidemia (26827970) Hypertension, essential (91870020) Incontinence of urine (0752401313) Osteoarthritis (8352995220) Oxygen dependent (5098216054) Pancreatic cyst (49316372) Rheumatic fever (25303424) Urinary incontinence (9218032413) MEDICATIONS: Active Inpt Meds: None Active PRN Meds: None One Time Meds: None Active IV Meds: Lactated Ringers Infusion 1,000 mL (LR 1,000 mL) Start: 08/15/23 10:41:00 EDT, Rate: 50 mL/hr, 08/15/23 10:41:00 EDT ALLERGIES: (2) Flexeril Zanaflex FAMILY HISTORY: SOCIAL HISTORY: PHYSICAL EXAM: VITALS: RtchieUmteOTQvgckHPQvL1BTA6PcaoMa(kg) 08/15 10:1936.7--200614VT40/02 95.0 08/15 95.0 24 Hr Tmax: 36.7 [...] LABS: 36hr Labs 08/15 1041 Blood Glucose, Cgiaxtlgy365N Blood Glucose, Ffdkxptfh711S DIAGNOSTICS: IMPRESSION: PLAN: History and Physical Update I have examined the patient; reviewed the H&P and there are no changes to the H&P unless noted below. Digitally Signed by MARK JEREZ MD on 08/15/2023 11:05 AM [facility]08-31-2023 Discharge summary Author Shahnaz [facility] July 14, 2023 7:47pm Note Date/Time July 14, 2023 3: 43pm [facility] Medical Records Department [address] [place] [address] Emergency Department Summary 07/14/23 MR#: [id number] Acct: [id number] Name: POLI RAMIREZ Rep #:[id number] : 1950 72 From: Shahnaz Georges PCP: [...] DNR CCA. She is a resident of [facility]. She notes that she is mostly wheelchair-bound but can walk short distances. Had a neck fracture earlier thisyear. [facility] Medical History Acute on [...] bisacodyl 10 mg rectal suppository 10 mg AL DAILY PRN 11/11/22 [History Last Taken Unknown] [...] surgery Hx of cholecystectomy Social History housing: detention Smoking Status: Former smoker alcohol intake: never [...] Patient isalso prescribed a short course of [place] for pain control. Is given first dose [...] 76.9 H Lymph % (Auto) 14.7 L [place] % (Auto) 6.5 Eos % (Auto) 1.3 [...] Clarity Clear Urine pH 6.0 Ur Specific [place] 1.020 Urine Protein 15 H Urine Glucose [...] Action bisacodyl 10 mg suppository 10 mg AL DAILY PRN cranberry 400 mg capsule 400 [...] your Primary Care Provider. Call [facility] ([phone]) or report to the closest Emergency Room. Call 911 if necessary. 07/14/231946 <Electronically signed by Shahnaz Way DO> Cosigner Signature (if applicable): CC: Jonathan Dillard MD ~ Signed [facility] Work Phone: 1(151) 841-955306-06-[address] Vela [facility] April 19, 2023 7:53pm Note Date/Time April 19, 2023 6:13p m [facility] Medical Records Department [address] [place] [address] Emergency Department Summary 04/19/23 MR#: [id number] Acct: [id number] Name: POLI RAMIREZ Rep #:[id number] : 1950 72 From: Alejandra Vela DO PCP: Gilma STUBBS, Jonathan Status:REG ER Location: ED HPI HPI - GI History of Present Illness Chief Complaint: Abd Pain Narrative Narrative: 72-year-old female presenting with left lower quadrant abdominal pain. She states this has been present off and on for weeks. She states that the detention she is at she gets Tylenol for this and it goes away but over the last few days the Tylenol is not helping. She has nausea without vomiting. She denies constipation. She states she has loose stools its not quite diarrhea. No blackor bloody stools. She states that at times there is right-sided abdominal pain. She has not had a fever at home. [facility] Medical History Acute on [...] bisacodyl 10 mg rectal suppository 10 mg AL DAILY PRN 11/11/22 [History Last Taken Unknown] [...] surgery Hx of cholecystectomy Social History housing: detention Smoking Status: Former smoker alcohol intake: never [...] discussed with the on-call physician for the detention. They wish to have the patient started [...] 81.7 H Lymph % (Auto) 11.2 L [place] % (Auto) 5.5 Eos % (Auto) 0.9 [...] Clarity Clear Urine pH 6.5 Ur Specific [place] 1.010 Urine Protein Negative Urine Glucose (UA) [...] Paper guidelines (Bailey, et al. JACR 2017; 14(8):7058-4234) recommend a low dose, non-contrast adrenal CT or chemical-shift adrenal MRI follow-up study. Other findings as above. Electronically Signed: Edward Gamboa MD at 18:58 EDT , Discharge Plan Triage Chief Complaint: [...] Action bisacodyl 10 mg suppository 10 mg AL DAILY PRN cranberry 400 mg capsule 400 [...] your Primary Care Provider. Call [facility] ([phone]) or report to the closest Emergency Room. Call 911 if necessary. 04/19/231952 <Electronically signed by Alejandra Vela DO> Cosigner Signature (if applicable): CC: Jonathan Dillard MD ~ Signed [facility] Work Phone: 1(875) 994-296804-14-[address] Jaime [facility] February 25, 2023 11:39am Note Date/Time February 25, 2023 11: 37am [facility] Medical Records Department [address] [place] [address] Transfer to [facility] MR#: [id number] Acct: [id number] Name: POLI RAMIREZ Rep #:[id number] : 1950 72 From: Pratima Jaime MD PCP: ARLENE Edmonds Status:ADM I N Certification of patient admission REQUIRED AT TIME OF ADMISSION. I CERTIFY THAT POST-HOSPITAL ECF SERVICES ARE REQUIRED TO BE GIVEN ON AN IN-PATIENT BASIS BECAUSE OF THE ABOVE NAMED PATIENT'S NEED FOR DETENTION CARE ON A CONTINUING BASIS FOR THE CONDITION(S) FOR WHICH HE/SHE WAS RECEIVING IN-PATIENT HOSPITAL SERVICES PRIOR TO HIS/HER TRANSFER TO THE [facility]. 02/25/23 1139<Electronically signed by Pratima Jaime MD> [...] displaced fracture of cervical vertebra resulting in detention placement, VTE presented to [facility] 02/18/23 due to unresponsiveness. She was found unresponsive by the detention where she lived. She was found to [...] to schedule your hospital follow-up appointment (ph [phone]) -Weigh yourself every day. A sudden weight [...] Monique ; Krzysztof Pennington ; Viji Richey MODELING INSTRUCTOR ; Rebecca Resendiz ; Thomas Ahumada ; [...] Continued bisacodyl 10 mg suppository 10 mg AL DAILY PRN cranberry 400 mg capsule 400 [...] hospital follow-up appointment )) Barber Carlisle NP, MODELING INSTRUCTOR-C [Primary Care Provider] - Within 1 Week Disposition Disposition (needs filled in before D/C Order can be placed): [facility] 02/25/23 1130 <Electronically signed by Pratima Jaime MD> Cosigner Signature (if applicable): CC: MODELING INSTRUCTOR-C Viji Richey; MODELING INSTRUCTOR-C Barber Carlisle; Dr. Serge Banks MD; Dr. Hernando Padron MD; Dr. Ajit Mcgill DO; Dr. Thomas Ahumada MD; Dr. Rebecca Resendiz DO; Dr. Martín Monique MD; Dr. Krzysztof Pennington MD ~ [facility] Work Phone: 1(589) 973-264404-13-[address] Jaime [facility] February 24, 2023 3:21pm Note Date/Time February 24, 2023 3:2 1pm [facility] Medical Records Department [address] [place] [address] [place] [address] Progress Note - Hospitalist 02/24/23 1178 MR#: [id number] Acct: [id number] Name: POLI RAMIREZ Rep #:[id number] : 1950 72 From: Pratima Jaime MD PCP: Barber Carlisle MODELING INSTRUCTOR-Andrea Status:ADM I N Location: [place] [address] Reason for Visit Reason for Visit: Diagnoses [...] 80.1 H, Lymph % (Auto) 12.6 L, [place] % (Auto) 5.1, Eos % (Auto) 1.5, [...] documentation, 30minutes Charges/Coding Visit Charges Inpatient E&M: 67999 Subs Hosp L2 02/24/23 1521 <Electronically signed by Pratima Jaime MD> Cosigner Signature (if applicable): CC: ~ Signed [facility] Work Phone: 1(480) 153-677604-12-[address] Jaime [facility] February 23, 2023 2:03pm Note Date/Time February 23, 2023 10: 52am [facility] Medical Records Department [address] [place] [address] Progress Note - Hospitalist 02/23/23 1051 MR#: [id number] Acct: [id number] Name: POLI RAMIREZ Rep #:[id number] : 1950 72 From: Pratima Jaime MD PCP: ARLENE Edmonds Status:ADM I N Location: [place] [address] Reason for Visit Reason for Visit: Diagnoses [...] (Auto) 78.1 H, Lymph % (Auto) 13.7L, [place] % (Auto) 6.1, Eos % (Auto) 1.5, [...] documentation, 30minutes Charges/Coding Visit Charges Inpatient E&M: 51625 Subs Hosp L2 02/23/23 1403 <Electronically signed by Pratima Jaime MD> Cosigner Signature (if applicable): CC: ~ Signed [facility] Work Phone: 1(666) 622-662604-12-[address] Gonzalez [facility] February 23, 2023 9:38am Note Date/Time February 23, 2023 9:3 8am [facility] Medical Records Department [address] [place] [address] Progress Note - Cardiology 02/23/2335 MR#: [id number] Acct: [id number] Name: POLI RAMIREZ Rep #:[id number] : 1950 72 From: Miroslava Gonzalez MD PCP: ARLENE Edmonds Status:ADM I N Location: [place] [address] Subjective Subjective No chest pain or shortness [...] (Auto) 78.1 H, Lymph % (Auto) 13.7L, [place] % (Auto) 6.1, Eos % (Auto) 1.5, [...] 78.1 H, Lymph % (Auto) 13.7 L, [place] % (Auto) 6.1, Eos % (Auto) 1.5, [...] (4) Anemia: PLAN: Hemoglobin actually improved. 02/23/23 0921 <Electronically signed by Miroslava Gonzalez MD> Cosigner Signature (if applicable): CC: ~ Signed [facility] Work Phone: 1(876) 211-670404-11-[address] Banks [facility] February 22, 2023 2:54pm Note Date/Time February 22, 2023 8:3 6am [facility] Medical Records Department [address] [place] [address] Progress Note - Community Development Planner 02/22/23 0832 MR#: [id number] Acct: [id number] Name: POLI RAMIREZ Rep #:[id number] : 1950 72 From: Serge Banks MD PCP: Barber Carlisle, MODELING INSTRUCTOR-C Status:ADM I N Location: ICU ICU03-1 Assessment [...] 82.0 H, Lymph % (Auto) 9.4 L, [place] % (Auto) 6.6, Eos % (Auto) 1.6, [...] affect normal Charges/Coding Visit Charges Inpatient E&M: 95395 Subs Hosp L2 02/22/23 7791 <Electronically signed by Serge Banks MD> Cosigner Signature (if applicable): CC: ~ Signed [facility] Work Phone: [phone]) 235-228904-11-[address] Gonzalez [facility] February 22, 2023 9:26am Note Date/Time February 22, 2023 9:2 6am [facility] Medical Records Department [address] [place] [address] Progress Note - Cardiology 02/22/23921 MR#: [id number] Acct: [id number] Name: POLI RAMIREZ Rep #:[id number] : 1950 72 From: Miroslava Gonzalez MD [...] 82.0 H, Lymph % (Auto) 9.4 L, [place] % (Auto) 6.6, Eos % (Auto) 1.6, [...] 82.0 H, Lymph % (Auto) 9.4 L, [place] % (Auto) 6.6, Eos % (Auto) 1.6, [...] Cosigner Signature (if applicable): CC: ~ Signed [facility] Work Phone: 1([phone]) 280-349304-11-[address] Jaime [facility] February 22, 2023 8:30am Note Date/Time February 22, 2023 8:3 0am [facility] Medical Records Department [address] [place] [address] Progress Note - Hospitalist 02/22/23819 MR#: [id number] Acct: [id number] Name: POLI RAMIREZ Rep #:[id number] : 1950 72 From: Pratima Jaime MD PCP: Barber Carlisle, MODELING INSTRUCTOR-C Status:ADM I N Location: ICU ICU03-1 Reason [...] 82.0 H, Lymph % (Auto) 9.4 L, [place] % (Auto) 6.6, Eos % (Auto) 1.6, [...] documentation, 30minutes Charges/Coding Visit Charges Inpatient E&M: 22118 Subs Hosp L2 02/22/23 0830 <Electronically signed by Pratima Jaime MD> Cosigner Signature (if applicable): CC: ~ Signed [facility] Work Phone: [phone]) 967-170004-10-[address] Jaime [facility] February 21, 2023 4:59pm Note Date/Time February 21, 2023 7:0 7am [facility] Medical Records Department [address] [place] [address] Progress Note - Hospitalist 02/21/23706 MR#: [id number] Acct: [id number] Name: POLI RAMIREZ Rep #:[id number] : 1950 72 From: Pratima Jaime MD PCP: ARLENE Edmonds Status:ADM I N Location: ICU [place] [address] Reason for Visit Reason for Visit: Diagnoses [...] 79.0 H, Lymph % (Auto) 14.1 L, [place] % (Auto) 5.3, Eos % (Auto) 0.7, [...] Bilirubin 0.80, AST 21, ALT 24, Alkaline Ttfsyyiellz24, Total Protein 5.6 L, Albumin 2.2 L, Globulin 3.4, Albumin/Globulin Ratio 0.6L 04/10/23 03:10: Vancomycin Trough 25.5 H Micro: Microbiology [...] documentation, 30minutes Charges/Coding Visit Charges Inpatient E&M: 15707 Subs Hosp L2 02/21/23 1110 <Electronically signed by Pratima Jaime MD> Cosigner Signature (if applicable): CC: ~ Signed [facility] Work Phone: 1([phone]) 615-416104-10-[address] Banks [facility] February 21, 2023 4:00pm Note Date/Time February 21, 2023 8:0 3am [facility] Medical Records Department [address] [place] [address] Progress Note - Community Development Planner 02/21/23 0752 MR#: [id number] Acct: [id number] Name: POLI RAMIREZ Rep #:[id number] : 1950 72 From: Serge Banks MD PCP: IDANIA EdmondsC Status:ADM I N Location: ICU ICU-1 Assessment [...] 79.0 H, Lymph % (Auto) 14.1 L, [place] % (Auto) 5.3, Eos % (Auto) 0.7, [...] Bilirubin 0.80, AST 21, ALT 24, Alkaline Zmxklzpkhcc80, Total Protein 5.6 L, Albumin 2.2 L, [...] [place] Performed By: Fabi Delacruz, RDCS, RVT Rhythm Strip Rhythm Strip: Sinus Rhythm [...] and affect normal Charges/Coding Procedures Hospitalists Procedures: 52851 Critial Care 1st Hr 02/21/23 1600 <Electronically signed by Serge Banks MD> Cosigner Signature (if applicable): CC: ~ Signed [facility] Work Phone: 1([phone]) 371-852604-10-[address] Gonzalez [facility] February 21, 2023 9:54am Note Date/Time February 21, 2023 9:5 4am [facility] Medical Records Department [facility] [place] [address] Progress Note - Cardiology 02/21/23 0951 MR#: [id number] Acct: [id number] Name: POLI RAMIREZ Rep #:[id number] : 1950 72 From: Miroslava Gonzalez MD PCP: Barber Carlisle MODELING INSTRUCTOR-C Status:ADM I N Location: ICU ICU03-1 Subjective [...] 79.0 H, Lymph % (Auto) 14.1 L, [place] % (Auto) 5.3, Eos % (Auto) 0.7, Baso % (Auto) 0.2, Absolute Neuts (auto) 3.3, Absolute Lymphs (auto) 0.59 L, Nucleated RBC % 0, DifferentialComment COMMENT, Diff Path Review March foll, Platelet Estimate SLT 02/21/23 03:10: Sodium 145, Potassium 3.2 L, Chloride 107, Carbon Dioxide 36.0 H, Anion Gap 2 L, BUN 17, Creatinine 0.93, Estim Creat Clear Calc 48.48, Est GFR (MDRD) Af Amer 76, Est GFR (MDRD) Non-Af 63, BUN/Creatinine Ratio 18.3, Glucose 190 H, Calcium 7.9 L, Total Bilirubin 0.80, AST 21, ALT 24, Alkaline Dhqilwllwdc29, Total Protein 5.6 L, Albumin 2.2 L, [...] 79.0 H, Lymph % (Auto) 14.1 L, [place] % (Auto) 5.3, Eos % (Auto) 0.7, [...] Cosigner Signature (if applicable): CC: ~ Signed [facility] Work Phone: [phone]) 380-608704-10-2023 Consult note Author Armani Napier [facility] February 21, 2023 4:07am Note Date/Time February 21, 2023 4:0 7am [facility] Medical Records Department [address] [place] [address] [place] [address] Pharmacokinetic/Renal -Consult 02/21/23 0406 MR#: [id number] Acct: [id number] Name: POLI RAMIREZ Rep #:[id number] : 1950 72 From: Armani Valdez od PCP: Barber Carlisle MODELING INSTRUCTOR-Andrea Status:ADM I N Y Location: ICU ICU03-1 [...] by Armani bolaños > Date _ Armani Adameignsidney Signature (if applicable): Date CC: ~ Signed [facility] Work Phone: [phone]) 937-887904-09-[address] Monique [facility] February 20, 2023 4:59pm Note Date/Time February 20, 2023 4:37 pm [facility] Medical Records Department [address] [place] [address] Progress Note - Community Development Planner 02/20/23 1634 MR#: [id number] Acct: [id number] Name: POLI RAMIREZ Rep #:[id number] : 1950 72 From: Martín Monique MD PCP: Barber Carlisle, MODELING INSTRUCTOR-Andrea Status:ADM I N Location: ICU ICU03-1 Assessment [...] performed. [place] [address] Subjective Subjective Intubated and sedated on ventilator, [...] (Auto) 80.9 H, Lymph % (Auto) 11.6L, [place] % (Auto) 6.4, Eos % (Auto) 0.2, [...] 6:54 EDT Reading Location ID and State: [address] [place] [address] Tel , Service support , Rhythm Strip Rhythm Strip: Sinus Rhythm Rate: 95 Ectopy: None Physical Exam Narrative 10 system exam done. Unchanged from yesterday. Charges/Coding Procedures Hospitalists Procedures: 81532 [facility] 1st Hr 02/20/23 1659 <Electronically signed by Martín Monique MD> Cosigner Signature (if applicable): CC: ~ Signed [facility] Work Phone: 1(775) 588-980104-09-[address] Gonzalez [facility] February 20, 2023 10:38am Note Date/Time February 20, 2023 10:3 8am [facility] Medical Records Department [address] [place] [address] [place] [address] Progress Note - Cardiology 02/20/23 1035 MR#: [id number] Acct: [id number] Name: POLI RAMIREZ Rep #:[id number] : 1950 72 From: Miroslava Gonzalez MD PCP: Barber Carlisle, MODELING INSTRUCTOR-Andrea Status:ADM I N Location: ICU ICU03-1 Subjective [...] (Auto) 80.9 H, Lymph % (Auto) 11.6L, [place] % (Auto) 6.4, Eos % (Auto) 0.2, [...] 80.9 H, Lymph % (Auto) 11.6 L, [place] % (Auto) 6.4, Eos % (Auto) 0.2, [...] Cosigner Signature (if applicable): CC: ~ Signed [facility] Work Phone: 1(458) 194-197604-09-[address] Padron [facility] February 20, 2023 8:46am Note Date/Time February 20, 2023 7:12 am [facility] Medical Records Department [address] [place] [address] Progress Note - Hospitalist 02/20/23711 MR#: [id number] Acct: [id number] Name: POIL RAMIREZ Rep #:[id number] : 1950 72 From: Hernando Padron MD [...] (Auto) 80.9 H, Lymph % (Auto) 11.6L, [place] % (Auto) 6.4, Eos % (Auto) 0.2, [...] 6:54 EDT Reading Location ID and State: [facility] / [place] Tel , Service support , Rhythm Strip [...] 45 Minutes Charges/Coding Visit Charges Inpatient E&M: 10628 Subs Hosp L2 02/20/23 0846 <Electronically signed by Hernando Padron MD> Cosigner Signature (if applicable): CC: ~ Signed [facility] Work Phone: 1(580) 363-888704-09-[address] Padron [facility] February 20, 2023 7:12am Note Date/Time February 19, 2023 5:15 pm [facility] Medical Records Department [address] [place] [address] Pharmacokinetic/Renal -Consult 02/19/23 1711 MR#: [id number] Acct: [id number] Name: POLI RAMIREZ Rep #:[id number] : 1950 72 From: Gretchen Lance PCP: [...] Date Hernando Padron MD CC: ~ Signed [facility] Work Phone: [phone]) 512-992504-08-[address] Monique [facility] February 19, 2023 1:55pm Note Date/Time February 19, 2023 10:4 7am [facility] Medical Records Department [address] [place] [address] Progress Note - Community Development Planner 02/19/23 1047 MR#: [id number] Acct: [id number] Name: POLI RAMIREZ Rep #:[id number] : 1950 72 From: Martín Monique MD [...] performed. [place] [address], [address]. Subjective Subjective Subjective patient is mildly sedated [...] 02/19/23 10:00 02/19/23 10:00 02/19/23 10:00 02/19/23 10:02/19/23 10:00 Oxygen Delivery Method Mechanical Ventilator settings [...] 79.0 H, Lymph % (Auto) 13.9 L, [place] % (Auto) 6.5, Eos % (Auto) 0.2, [...] Cosigner Signature (if applicable): CC: ~ Signed [facility] Work Phone: [phone]) 686-528704-08-[address] Gonzalez [facility] February 19, 2023 11:57am Note Date/Time February 19, 2023 11:5 6am [facility] Medical Records Department [address] [place] [address] Consultation - Cardiology 02/19/23 1146 MR#: [id number] Acct: [id number] Name: POLI RAMIREZ Rep #:[id number] : 1950 72 From: Miroslava Gonzalez MD [...] intubated and unable to provide any history. [facility] Medical History (Updated 02/19/23 @ [...] bisacodyl 10 mg rectal suppository 10 mg AL DAILY PRN 11/11/22 [History Last Taken Unknown] [...] 00:[address] Rebecca Resendiz DO) housing: detention Smoking Status: Former smoker alcohol intake: never [...] 79.0 H, Lymph % (Auto) 13.9 L, [place] % (Auto) 6.5, Eos % (Auto) 0.2, [...] Gas Notified Whom Blood Gas Notified Time 9037 Rhythm Strip Rhythm Strip: Sinus Rhythm Rate: [...] 79.0 H, Lymph % (Auto) 13.9 L, [place] % (Auto) 6.5, Eos % (Auto) 0.2, [...] Gonzalez MD> Cosigner Signature (if applicable): CC: MODELING INSTRUCTOR-Andrea Richey; MODELING INSTRUCTOR-C Barber Carlisle; Dr. Serge Banks MD; Dr. Hernando Padron MD; Dr. Ajit Mcgill DO; Dr. Thomas Ahumada MD; Dr. Rebecca Resendiz DO; Dr. Martín Monique MD; Dr. Krzysztof Pennington MD~ Signed [facility] Work Phone: [phone]) 198-717104-08-[address] Padron [facility] February 19, 2023 8:28am Note Date/Time February 19, 2023 7:11 am [facility] Medical Records Department [address] [place] [address] Progress Note - Hospitalist 02/19/23709 MR#: [id number] Acct: [id number] Name: POLI RAMIREZ Rep #:[id number] : 1950 72 From: Hernando Padron MD [...] 79.0 H, Lymph % (Auto) 13.9 L, [place] % (Auto) 6.5, Eos % (Auto) 0.2, [...] 55 Minutes Charges/Coding Visit Charges Inpatient E&M: 65332 Subs Hosp L3 02/19/2328 <Electronically signed by Hernando Padron MD> Cosigner Signature (if applicable): CC: ~ Signed [facility] Work Phone: [phone]) 740-759004-07-[address] Monique [facility] February 18, 2023 8:01pm Note Date/Time February 18, 2023 9:53 am [facility] Medical Records Department [address] [place] [address] Consultation - Community Development Planner 02/18/2353 MR#: [id number] Acct: [id number] Name: POLI RAMIREZ Rep #:[id number] : 1950 72 From: Martín Monique MD [...] Monique MD> Cosigner Signature (if applicable): cc: MODELING INSTRUCTOR-C Viji Richey; MODELING INSTRUCTOR-C Barber Carlisle; Dr. Serge Banks MD; Dr. Ajti Mcgill, DO; Dr. Thomas Ahumada MD; Dr. Rebecca Resendiz, DO; Dr. Martín Monique MD; Dr. Krzysztof [...] Thank you for consulting [facility] for critical care. We will follow the patient with you.. Martín Monique MD [facility] HPI Consult Data Date of Consult: 02/18/23 HPI Narrative Reason for Consultation: Respiratory failure on mechanical ventilation, chronic hypercarbia HPI Narrative: POLI RAMIREZ, is a unfortunate 72-year-old woman who was at the detention for rehab after neck fracture was found unresponsive at her detention with SPO2 70s GCS 3.? No response [...] GERD, frequent falls, insomnia, obstructive sleep apnea, [place], generalized weakness, displaced fracture of the sixth and seventh cervical vertebrae, pancytopenia, history of breast cancer, nicotine dependence, osteoarthritis both shoulders, type 2 diabetes with diabetic neuropathy, impaired mobility, venous insufficiency, urinary incontinence. Her home medications were reviewed. Surgical history: Left breast lumpectomy, C-spine surgery, cholecystectomy. Family history is noncontributory.? Social history she is a former smoker. [facility] Medical History (Updated 02/18/23 @ [...] bisacodyl 10 mg rectal suppository 10 mg AL DAILY PRN 11/11/22 [History Last Taken Unknown] [...] 00:[address] Rebecca Resendiz DO) housing: detention Smoking Status: Former smoker alcohol intake: never [...] 87.0 H, Lymph % (Auto) 6.6 L, [place] % (Auto) 3.6, Eos % (Auto) 0.2, [...] Sl. Cloudy, Urine pH 5.0, Ur Specific Wilton 1.030, Urine Protein 100 H, Urine Glucose [...] 88.6 H, Lymph % (Auto) 4.5 L, [place] % (Auto) 5.7, Eos % (Auto) 0.0, [...] ED MD MONIQUE Blood Gas Notified Time 8670 Rhythm Strip Rhythm Strip: Sinus Rhythm Rate: [...] 2:02 EDT , Charges/Coding Procedures Hospitalists Procedures: 29148 [facility] 1st Hr 02/18/23 1241 <Electronically signed by Martín Monique MD> Cosigner Signature (if applicable): CC: MODELING INSTRUCTORGiancarlo Richey; ARLENE Carlisle; Dr. Serge Banks MD; Dr. Ajit Mcgill DO; Dr. Thomas Ahumada MD; Dr. Rebecca Resendiz DO; Dr. Martín Monique MD; Dr. Krzysztof Pennington MD~ Signed [facility] Work Phone: [phone] 750-577104-07-[address] Padron [facility] February 18, 2023 8:24am Note Date/Time February 18, 2023 7:16 am [facility] Medical Records Department [address] [place] [address] Progress Note - Hospitalist 02/18/23711 MR#: [id number] Acct: [id number] Name: POLI RAMIREZ Rep #:[id number] : 1950 72 From: Hernando Padron MD [...] 87.0 H, Lymph % (Auto) 6.6 L, [place] % (Auto) 3.6, Eos % (Auto) 0.2, [...] Sl. Cloudy, Urine pH 5.0, Ur Specific Wil[place] 1.030, Urine Protein 100 H, Urine Glucose [...] 88.6 H, Lymph % (Auto) 4.5 L, [place] % (Auto) 5.7, Eos % (Auto) 0.0, [...] Notified Whom ED Blood Gas Notified Time 6691 Radiography Diagnostic Testing: Radiology Impression Brain CT [...] 55 Minutes Charges/Coding Visit Charges Inpatient E&M: 09579 Subs Hosp L3 02/18/23 0824 <Electronically signed by Hernando Padron MD> Cosigner Signature (if applicable): CC: ~ Signed [facility] Work Phone: [phone]) 367-212304-07-2023 Consult note Author Armani Napier [facility] February 18, 2023 4:15am Note Date/Time February 18, 2023 4:15 am [facility] Medical Records Department [address] [place] [address] Pharmacokinetic/Renal -Consult 02/18/23413 MR#: [id number] Acct: [id number] Name: POLI RAMIREZ Rep #:[id number] : 1950 72 From: Armani Valdez od PCP: Barber Carlisle MODELING INSTRUCTORGiancarlo Status:ADM I N Y Location: ICU ICU03-1 [...] Signature (if applicable): Date CC: ~ Signed [facility] Work Phone: [phone]) 966-802804-07-2023 History and physical note Author Dr. Resendiz [facility] February 18, 2023 1:48am Note Date/Time February 18, 2023 12:3 2am [facility] Medical Records Department [address] [place] [address] H&P Exam - Hospitalist 02/18/23 0029 MR#: [id number] Acct: [id number] Name: POLI RAMIREZ Rep #:[id number] : 1950 72 From: Rebecca Resendiz DO PCP: ARLENE Edmonds Status:ADM I N Location: ICU [place] [address] HPI - General General Date of Admission: 02/18/23 Date of Service: 02/18/23 Chief Complaint: Unresponsiveness HPI Narrative POLI RAMIREZ, is a 72 F who presented to the emergency department at [facility] secondary to unresponsiveness. The patient was found to be unresponsive by the detention staff at where she lives. Upon presentation [...] EKG showed normal sinus rhythm with normal AL interval however she has slightly prolonged QTc. No signs of ischemic changes were noted. [facility] Medical History Anemia Atherosclerotic heart [...] bisacodyl 10 mg rectal suppository 10 mg AL DAILY PRN 11/11/22 [History Last Taken Unknown] [...] 00:[address] Rebecca Resendiz DO) housing: detention Smoking Status: Former smoker alcohol intake: never [...] 87.0 H, Lymph % (Auto) 6.6 L, [place] % (Auto) 3.6, Eos % (Auto) 0.2, [...] Sl. Cloudy, Urine pH 5.0, Ur Specific Wil[place] 1.030, Urine Protein 100 H, Urine Glucose [...] the morning Charges/Coding Visit Charges Inpatient E&M: 71781 Init Hosp L3 02/18/23 0148 <Electronically signed by Rebecca Resendiz DO> Cosigner Signature (if applicable): CC: ARLENE Carlisle; Dr. Rebecca Resedniz DO~ Signed [facility] Work Phone: [phone] Tsai [facility] February 18, 2023 12:19am Note Date/Time February 17, 2023 10:3 4pm [facility] Medical Records Department [address] [place] [address] Emergency Department Summary 02/17/23 MR#: [id number] Acct: [id number] Name: POLI RAMIREZ Rep #:[id number] : 1950 72 From: Ellis Tsai MD PCP: ARLENE Edmonds Status:REG E R Location: ED HPI History of Present Illness Chief Complaint: Unresponsive Informant: EMS Narrative Narrative: Patient brought from local detention found unresponsive by detention staff. Barely breathing, hypoxic in the 70s [...] [facility]. Last seen normal about 3 hours prior to evaluation here. Apparently she is in a detention for rehab after a neck fracture. She does not have any collar or cervical spine hardware. EMS also states that family wasapparently there yesterday, and the detention staff was suspicious that they may be in the drugs. [facility] Medical History (Updated 02/18/23 [...] bisacodyl 10 mg rectal suppository 10 mg AL DAILY PRN 11/11/22 [History Last Taken Unknown] [...] 87.0 H Lymph % (Auto) 6.6 L [place] % (Auto) 3.6 Eos % (Auto) 0.2 [...] Sl. Cloudy Urine pH 5.0 Ur Specific Wil[place] 1.030 Urine Protein 100 H Urine Glucose [...] (Auto) Neut % (Auto) Lymph % (Auto) [place] % (Auto) Eos % (Auto) Baso % [...] Color Urine Clarity Urine pH Ur Specific [place] Urine Protein Urine Glucose (UA) Urine Ketones [...] Management Discussion w/another healthcare provider: Hospitalist and Mission Assessment Specialist (javi mcgill) Procedures Intubations Intubation Method: orotracheal [...] pulmonary disease) Disposition Disposition: Acute Care Hospital [facility] What to do if you have Problems For any increased pain, shortness of breath, bleeding, nausea or vomiting, chestpain, or any unexpected problems, contact your Primary Care Provider. Call [facility] ([phone]) or report to the closest Emergency Room. Call 911 if necessary. 02/18/23 0019 <Electronically signed by Ellis Tsai MD> Cosigner Signature (if applicable): CC: ARLENE Carlisle ~ Signed [facility] Work Phone: [phone]) 802-608404-07-[address] Tsai [facility] February 18, 2023 12:19am Note Date/Time February 17, 2023 10:3 4pm [facility] Medical Records Department [address] [place] [address] Emergency Department Summary 02/17/23 MR#: [id number] Acct: [id number] Name: POLI RAMIREZ Rep #:[id number] : 1950 72 From: Ellis Tsai MD PCP: ARLENE Edmonds Status:REG E R Location: ED HPI History of Present Illness Chief Complaint: Unresponsive Informant: EMS Narrative Narrative: Patient brought from local detention found unresponsive by detention staff. Barely breathing, hypoxic in the 70s [...] ox 60[facility] not [facility]. Last seen normal about 3 hours prior to evaluation here. Apparently she is in a detention for rehab after a neck fracture. She does not have any collar or cervical spine hardware. EMS also states that family wasapparently there yesterday, and the detention staff was suspicious that they may be in the drugs. [facility] Medical History (Updated 02/18/23 [...] bisacodyl 10 mg rectal suppository 10 mg AL DAILY PRN 11/11/22 [History Last Taken Unknown] [...] 87.0 H Lymph % (Auto) 6.6 L [place] % (Auto) 3.6 Eos % (Auto) 0.2 [...] Sl. Cloudy Urine pH 5.0 Ur Specific [place] 1.030 Urine Protein 100 H Urine Glucose [...] (Auto) Neut % (Auto) Lymph % (Auto) [place] % (Auto) Eos % (Auto) Baso % [...] Color Urine Clarity Urine pH Ur Specific [place] Urine Protein Urine Glucose (UA) Urine Ketones [...] Signed: Calvin Botello MD at 0:01 EDT Reading Location ID and State: [facility] / [place] Tel , Service support , Rhythm Strip Rhythm Strip: Sinus Rhythm Rate: 95 Ectopy: None EKG Initial EKG: Attestation: I personally reviewed and interpreted this EKG as follows: Interpretation: Sinus Rhythm, No Acute Injury Pattern and LBBB Prior EKG tracings: available for review Prior: Unchanged Management Discussion w/another healthcare provider: Hospitalist and Mission Assessment Specialist (javi mcgill) Procedures Intubations Intubation Method: orotracheal [...] pulmonary disease) Disposition Disposition: Acute Care Hospital [facility] What to do if you have Problems For any increased pain, shortness of breath, bleeding, nausea or vomiting, chestpain, or any unexpected problems, contact your Primary Care Provider. Call [facility] ([phone]) or report to the closest Emergency Room. Call 911 if necessary. 02/18/23 0019 <Electronically signed by Ellis Tsai MD> Cosigner Signature (if applicable): CC: ARLENE Carlisle ~ Signed [facility] Work Phone: 1(601) 174-683009-13-2022 Hospital Discharge instructions Patient Education 07/27/2022 11:52:16 [...] are safe for you. General instructions Take mpyp-yda-zkhgphb and prescription medicines only as told by [...] 09/17/2005 Document Revised: 10/13/2018 Document Reviewed: 08/04/2017 [employer] Patient Education 2020 [employer] (ML4D). Follow Up Care 07/11/2022 11:22:15 With:apostolic scientologist home [phone] skilled Address:Unknown When:1-2 days With:BARBER CARLISLE Address: [address] [facility] [place] [address] [phone] Business (1) When:1-2 days With:BYRON STUBBS, TRACE Sprague, Neurosurgery Address: [address] [place] [address]- [phone] When:08/10/2022 11:00:00 [facility] 09-13-2022 Note Discharge Instructions Thank you for allowing [facility] to assist you with your healthcare needs. [...] results to FREDY Edmonds Neck Xray at [facility], Ground floor Radiology Dept on 08/10/2022 at [...] Op 08/10/2022 11:00 AM EDT Neurosurgery [address] [address] Follow Up Appointments Follow Up with BYRON STUBBS, TRACE Sprague, Neurosurgery When 08/10/2022 11:00 AM EDT Where: [address] [address] [phone] Follow Up with [facility] [phone] skilled When Within 1-2 days Follow Up with BARBER CARLISLE When Within 1-2 days Where: [address] [place] [address]- [phone] Business (1) The Following Activity and Diet [...] retail pharmacies. Medication Leaflets oxycodone (ox i KOSita done) Oxaydo, OxyCONTIN, Oxyfast, OxyIR, Roxicodone, Xtampza [...] The extended-release form of oxycodone is for gttahj-frt-qgksk treatment of pain and should not be [...] against the law. Stop taking all other npkpee-cvg-mivxz opioid pain medicines when you start taking [...] may report side effects to FDA at 3-366-LOK-0758. What other drugs will affect oxycodone? You [...] drugs may affect oxycodone. This includes prescription uftikuv-ogb-yftadga medicines, vitamins, and herbal products. Not all [...] to ensure that the information provided by [employer]. ('Multum') is accurate, up-to-date, and complete, but no guarantee is made to that effect. Drug information contained herein may be time sensitive. [employer] information has been compiled for use by healthcare practitioners and consumers in the [place] and therefore [employer] does not warrant that uses outside of the [place] are appropriate, unless specifically indicated otherwise. [employer] drug information does not endorse drugs, diagnose patients or recommend therapy. [employer] drug information isan informational resource designed to [...] effective or appropriate for any given patient. [employer] does not assume any responsibility for any aspect of healthcare administered with the aid of information [employer] provides. The information contained herein is not intended to cover all possible uses, directions, precautions, warnings, drug interactions, allergic reactions, or adverse effects. If you have questions about the drugs you are taking, check with your doctor, nurse or pharmacist. Copyright 4965-9004 [employer]. Version: 14.02. Revision Date: 12/11/2020. Education Materials [...] are safe for you. General instructions Take puam-qux-lxlubtu and prescription medicines only as told by [...] 09/17/2005 Document Revised: 10/13/2018 Document Reviewed: 08/04/2017 ElseMendor Patient Education 2020 [employer] Additional Information VACCINATE! IT SAVES LIVES! Members of the community who have not yet received the COVID-19 vaccine and would like to receive it can visit one of [facility] vaccine clinics. There are many vaccine clinic locations within the [facility]. For locations and available times, please visit https://gettheshot.coronavirus.[place].gov/. It is important to note that some COVID mobile vaccine clinics are held outdoors and may be canceled in rainy or stormy conditions. To learn more about pediatric vaccinations (ages 5-11), we invite you to visit the [facility] webpage. https://www.[facility].org/pages/0075-Yshmi-Kwpaiqrkwkj-Wqdzhpkpke-Sxwpl-Foc stions.htmlTo learn more about the COVID-19 vaccine, we invite you to visit the [employer] website for a list of frequently asked questions. https://[employer]/assets/Govrdehz-nzc-Ylyldowf/gveto-Tnodozv-Pftrgsymcm _Asked-Questions.pdf [facility] Patient Portal Access Instructions: Stay connected with your healthcare team and access your personal medical information anytime with the [facility] [employer] Patient Portal.If you would like a full copy of your medical records, please contact the [facility] Medical Records Department, Tuesday through Tuesday between 8a.m. and 4:30p.m. Please follow the directions below to access the portal: 1.Access the email account you provided upon registration to the [facility].2.Look for an invitation email from [facility].3.Open the email and access the invitation link: Accept Invitation to [facility]4.Fill in the required quijano to create your account. Sign into [email or web address] with your username and password that [...] you will allow to register on the [facility] [employer] Patient Portal for access to your information. You can also access the [facility] [employer] Patient Portal on the [employer] marcy. Simply click on "Health Records" under "[email or web address].in" and then click on the Vaishali logo. [...] Call your local pharmacy or go to http://bit.Miroi/1U7Go5r to find one close to you.3.Make use of household items: Use cat litter or old coffee grounds to dispose medications if other options arenot available. Mix your drugs with these household products, seal them in an airtight container andthrow it into the garbage. Call [facility]: [phone] to be sure your drugs can be [...] that I should contact my d octor. Patient/Transmission Tester Signature: Date/Time: Relationship to Patient: Witness Name/Signature: Date/Time: [id number] Note Discharge Instructions Thank you for allowing [...] results to FREDY Edmonds Neck Xray at [facility] floor Radiology Dept on 08/10/2022 at 10:30am. [...] Op 08/10/2022 11:00 AM EDT Neurosurgery [address] [address] Follow Up Appointments Follow Up with BYRON STUBBS, TRACE Sprague, Neurosurgery When 08/10/2022 11:00 AM EDT Where: [address] [address]- [phone] Follow Up with [facility] [phone] skilled When Within 1-2 days Follow Up with BARBER CARLISLE When Within 1-2 days Where: [address] [facility] [place] [phone] Business (1) The Following Activity and Diet [...] to receive it can visit one of [facility] vaccine clinics. There are many vaccine clinic locations within the [facility]. For locations and available times, please visit https://gettheshot.coronavirus.[place].gov/. It is important to note that some COVID mobile vaccine clinics are held outdoors and may be canceled in rainy or stormy conditions. To learn more about pediatric vaccinations (ages 5-11), we invite you to visit the [facility] webpage. https://www.[facility].org/pages/8139-Qqiug-Edmdqfukeyq-Enkqmiugor-Lagnk-Bgu stions.htmlTo learn more about the COVID-19 vaccine, we invite you to visit the [facility] website for a list of frequently asked questions. https://[email or web address]/assets/Ybambuac-vba-Tbpkrbcq/ncvqx-Wpbxnix-Mxxyziyviw _Asked-Questions.pdf [facility] Patient Portal Access Instructions: Stay connected with your healthcare team and access your personal medical information anytime with the [facility] Patient Portal.If you would like a full copy of your medical records, please contact the [facility] [facility] Medical Records Department, Tuesday through Tuesday between 8a.m. and 4:30p.m. Please follow the directions below to access the portal: 1.Access the email account you provided upon registration to the hospital.2.Look for an invitation email from [facility].3.Open the email and access the invitation link: Accept Invitation to [employer]4.Fill in the required quijano to create your account. Sign into www.[employer] with your username and password that you [...] you will allow to register on the [facility] Patient Portal for access to your information. You can also access the [facility] Patient Portal on the The Library. Simply click on "Health Records" under "HealthData" and then click on the [employer] logo. HOW TO SAFELY DISPOSE OF PRESCRIPTION [...] Call your local pharmacy or go to http://FastBooking.Miroi/8R7Kg8p to find one close to you.3.Make use of household items: Use cat litter or old coffee grounds to dispose medications if other options arenot available. Mix your drugs with these household products, seal them in an airtight container andthrow it into the garbage. Call [facility]: [phone] to be sure your drugs can be [...] aware that I should contact my d zulmaor. Patient/Transmission Tester Signature: Date/Time: Relationship to Patient: Witness Name/Signature: Date/Time: [facility] [id number] Note Discharge Instructions Thank you for allowing [...] results to FREDY Edmonds Neck Xray at [facility], Ground floor Radiology Dept on 08/10/2022 at [...] Op 08/10/2022 11:00 AM EDT Neurosurgery [address] [phone] Follow Up Appointments Follow Up with BYRON STUBBS, TRACE Sprague, Neurosurgery When 08/10/2022 11:00 AM EDT Where: [address] [address] [phone] Follow Up with [facility] [phone] skilled When Within 1-2 days Follow Up with BARBER CARLISLE When Within 1-2 days Where: [address] [place] [address]- [phone] Business (1) The Following Activity and Diet [...] to receive it can visit one of [facility] vaccine clinics. There are many vaccine clinic locations within the [facility]. For locations and available times, please visit [email or web address]/. It is important to note that some COVID mobile vaccine clinics are held outdoors and may be canceled in rainy or stormy conditions. To learn more about pediatric vaccinations (ages 5-11), we invite you to visit the [facility] webpage. [email or web address]-[email or web address] stions.htmlTo learn more about the COVID-19 vaccine, we invite you to visit the [facility] website for a list of frequently asked questions. [email or web address] _[email or web address]-Questions.pdf [facility] [employer] Patient Portal Access Instructions: Stay connected with your healthcare team and access your personal medical information anytime with the [facility] Patient Portal.If you would like a full copy of your medical records, please contact the [facility] Medical Records Department, Tuesday through Tuesday between 8a.m. and 4:30p.m. Please follow the directions below to access the portal: 1.Access the email account you provided upon registration to the [facility].2.Look for an invitation email from [facility].3.Open the email and access the invitation link: Accept Invitation to [employer]4.Fill in the required quijano to create your account. Sign into www.[employer] with your username and password that you [...] you will allow to register on the [facility] Patient Portal for access to your information. You can also access the [facility] Patient Portal on the The Library. Simply click on "Health Records" under "[employer] Mobile" and then click on the [employer]im[employer] logo. HOW TO SAFELY DISPOSE OF PRESCRIPTION [...] Call your local pharmacy or go to http://FastBooking.Miroi/0E6Jf6w to find one close to you.3.Make use of household items: Use cat litter or old coffee grounds to dispose medications if other options arenot available. Mix your drugs with these household products, seal them in an airtight container andthrow it into the garbage. Call [facility]: [phone] to be sure your drugs can be [...] that I should contact my d octor. Patient/Transmission Tester Signature: Date/Time: Relationship to Patient: Witness Name/Signature: Date/Time: [facility] [id number] Note Date of Service 07/26/2022 Neurosurgical CC: Unstable cervical spine injury, post repair POD #13, C2-C7 posterior cervical decompressive laminectomy and C2-T2 posterior cervical instrumented fusion Patient has no new complaints today. She is motivated to mobilize. She is asking when able to be discharged home. I explained she will need correction care, than goal with home-going. 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 Weight [...] fracture of C6 with extension distraction fracture C6-R4aryyg no change in alignment. XR Spine Cervical [...] at C4-C5and C5-C6. Signal changes in the ishmeal, likely small vessel ischemic disease. Assessment/Plan 1. [...] NITA MADERA APRN-SILVINO on 07/26/2022 06:15 AM [facility] [id number] Note Date of Service 07/25/2022 Neurosurgical CC: Unstable cervical spine injury, post repair POD #12, C2-C7 posterior cervical decompressive laminectomy and C2-T2 posterior cervical instrumented fusion Patient remains in the hospital awaiting precertification for correction facility No acute events overnight. Patient has [...] fracture of C6 with extension distraction fracture C6-C8kqijn no change in alignment. XR Spine Cervical [...] NITA MADERA APRN-SILVINO on 07/25/2022 05:40 AM [facility] [id number] Note Date of Service 07/23/2022 Patient reviewed [...] fracture of C6 with extension distraction fracture C6-G0xdlyg no change in alignment. XR Chest 1 [...] the office visit Discussed case with licensed audiologist. Aware patient remains ready for discharge. Digitally Signed by NITA MADERA APRN-TOOL AND EQUIPMENT RENTAL CLERK on 07/24/2022 11:41 AM [facility] [id number] Note Chief Complaint Pain Subjective Pain under [...] RUBIO MD FACP on 07/23/2022 04:02 PM [facility] [id number] Note Date of Service 07/23/2022 Patient reviewed [...] fracture of C6 with extension distraction fracture C6-N0zetny no change in alignment. XR Spine Cervical [...] by NITA MADERA on 07/23/2022 06:18 AM [facility] [id number] Note Date of Service 07/23/2022 Patient reviewed [...] breath or chest pain. Denies abdominal pain ornausea. Objective Vitals and Measurements T: 37 C [...] fracture of C6 with extension distraction fracture C6-S6xdiyi no change in alignment. XR Spine Cervical [...] NITA MADERA APRN-SILVINO on 07/23/2022 06:18 AM [facility] [id number] Note Chief Complaint hypotension Subjective Patient was [...] EDT Digitally Signed by FABIANO RUBIO MD [facility] on 07/22/2022 08:16 PM [facility] DublinMbmoikul87-53-1345 Neurological surgery Progress note Date of Service Addendum by NITA MADERA on July 22, 2022 06:06:28 EDT (Verified) 07/22/2022 Patient cleared for discharge, however still awaiting precertification. No acute events overnight. Patient overall doing well neurologically. Vital signs have remained stable. Internal medicine team has been following, signed off yesterday and cleared for discharge. Shedislikes the Shalini brace, but has been compliant with use. Does have complaints of muscle spasms,tizanidine has been ordered Signature Line Digitally Signed [...] AM [1] [1] Discharge Summary; ARYAN VAZ FRAME POLISHER-TOOL AND EQUIPMENT RENTAL CLERK 07/21/2022 07:15 EDT Digitally Signed by NITA MADERA APRN-TOOL AND EQUIPMENT RENTAL CLERK on 07/22/2022 09:56 AM [facility] [id number] Discharge summary Date of Service 07/21/2022 Discharge Diagnosis 1. S/P fall, resulting in C6-7 distraction injury with bilateral pedicle fractures ([id number] - [facility]) 2. S/P C2-C7 decompressive laminectomy, C2-T2 posterior bone screw/merari fixation and fusion ([id number] - [facility]) 3. DM2 (diabetes mellitus, type [...] and face. She was evaluated in the [facility] emergency department, where she was found to [...] She is ready to be discharged to [facility]. Her discharge instructions and restrictions been provided to [facility]. Her follow-up appointment has been arranged. Allergies [...] fracture of C6 with extension distraction fracture C6-R5hfopt no change in alignment. XR Chest 1 [...] When 07/27/2022 09:30 AM EDT Where: [address] [facility] [address] [place] [address]- [phone] Follow Up Appointments See above Follow Up [...] Score No qualifying data available. Discharge Disposition [facility] Information Provided To Patient and [facility] Time Spent 15 min Digitally Signed by ARYAN VAZ on 07/21/2022 08:46 AM Digitally Signed by TRACE MATTHEWS MD on 07/21/2022 11:25 AM [facility] [id number] Discharge summary Date of Service 07/21/2022 Discharge Diagnosis 1. S/P fall, resulting in C6-7 distraction injury with bilateral pedicle fractures ([id number] - [facility]) 2. S/P C2-C7 decompressive laminectomy, C2-T2 posterior bone screw/merari fixation and fusion ([id number] - [facility]) 3. DM2 (diabetes mellitus, type [...] and face. She was evaluated in the [facility] emergency department, where she was found to [...] She is ready to be discharged to [facility]. Her discharge instructions and restrictions been provided to [facility]. Her follow-up appointment has been arranged. Allergies [...] fracture of C6 with extension distraction fracture C6-Z0dtqnv no change in alignment. XR Chest 1 [...] When 07/27/2022 09:30 AM EDT Where: [address] [facility] [address] [place] [address]- [phone] Follow Up Appointments See above Follow Up [...] Score No qualifying data available. Discharge Disposition [facility] Information Provided To Patient and [facility] Time Spent 15 min Digitally Signed by ARYAN VAZ on 07/21/2022 08:46 AM Digitally Signed by TRACE MATTHEWS MD on 07/21/2022 11:25 AM [facility] [id number] Discharge summary Date of Service 07/21/2022 Discharge Diagnosis 1. S/P fall, resulting in C6-7 distraction injury with bilateral pedicle fractures ([id number] - [facility]) 2. S/P C2-C7 decompressive laminectomy, C2-T2 posterior bone screw/merari fixation and fusion ([id number] - [facility]) 3. DM2 (diabetes mellitus, type [...] and face. She was evaluated in the [facility] emergency department, where she was found to [...] She is ready to be discharged to [facility]. Her discharge instructions and restrictions been provided to [facility]. Her follow-up appointment has been arranged. Allergies [...] fracture of C6 with extension distraction fracture C6-Z3kyxdf no change in alignment. XR Chest 1 View Result Date: July 13, 2022 Verified By: JARETH MAK MD CLINICAL STATEMENT: IMPRESSION: 1. Endotracheal tube terminating approximately 5.3 cm above the jduith. 2. Interval placement surgical hardware throughout the [...] When 07/27/2022 09:30 AM EDT Where: [address] [place] [address]- [phone] Follow Up Appointments See above Follow Up [...] Score No qualifying data available. Discharge Disposition [facility] Information Provided To Patient and [facility] Time Spent 15 min Digitally Signed by ARYAN VAZ on 07/21/2022 08:46 AM Digitally Signed by TRACE MATTHEWS MD on 07/21/2022 11:25 AM [facility] [id number] Note Date of Service 07/21/22 Chief Complaint Weakness Subjective Patient is a very pleasant 71-year-old female with a past medical history significant for hypertension, obesity, hyperlipidemia, COPD, severe restrictive airway disease follows with [facility], noninsulin-dependent type 2 diabetes, venous insufficiency, goiter, GERD, chronic back pain and hypoxic respiratory failure wearing 2 L oxygen via nasal cannula continuous at home. Patient originally presented to [facility] emergency department on July 11, 2022. Patient sustained a mechanical fall over her walker landing on the left side of her face. [facility] EMS. Patient was noted to have significant cervical spine injury and transferred to [facility] emergency department for further evaluation. Patient was [...] 15:30) 20(JUL 20 19:50) SBP 114(JUL 21 13:) 114(JUL 21 03:43) 139(JUL 20 19:50) DBP 76(JUL 21 13:) L 51(JUL 21 03:43) 76(JUL 21:01) Physical Exam General: No acute distress. Alert [...] patient's primary care physician covering provider at correction facility. Continue home medication. Blood glucose checks [...] therapy involved. Recommending patient be discharged to correction facility. Patient is agreeable to discharge to correction facility. Discharge per primary team. At this [...] by JOANNA TOMLINSON on 07/21/2022 02:49 PM [facility] [id number] Discharge summary Date of Service 07/21/2022 Discharge Diagnosis 1. S/P fall, resulting in C6-7 distraction injury with bilateral pedicle fractures ([id number] - [facility]) 2. S/P C2-C7 decompressive laminectomy, C2-T2 posterior bone screw/merari fixation and fusion ([id number] - PN[facility]) 3. DM2 (diabetes mellitus, type [...] and face. She was evaluated in the [facility] emergency department, where she was found to [...] She is ready to be discharged to [facility]. Her discharge instructions and restrictions been provided to [facility]. Her follow-up appointment has been arranged. Allergies [...] fracture of C6 with extension distraction fracture C6-L6fvcjb no change in alignment. XR Chest 1 [...] When 07/27/2022 09:30 AM EDT Where: [address] [place] [address]- [phone] Follow Up Appointments See above Follow Up [...] Score No qualifying data available. Discharge Disposition [facility] Information Provided To Patient and [facility] Time Spent 15 min Digitally Signed by ARYAN VAZ on 07/21/2022 08:46 AM Digitally Signed by TRACE MATTHEWS MD on 07/21/2022 11:25 AM [facility] [id number] Note Date of Service 07/20/22 Reason for Consultation Medical management Referring Physician Dr. Matthews History of Present Illness Patient is a very pleasant 71-year-old female with a past medical history significant for hypertension, obesity, hyperlipidemia, COPD, severe restrictive airway disease follows with [facility], noninsulin-dependent type 2 diabetes, venous insufficiency, goiter, GERD, chronic back pain and hypoxic respiratory failure wearing 2 L oxygen via nasal cannula continuous at home. Patient originally presented to [facility] emergency department on July 11, 2022. Patient sustained a mechanical fall over her walker landing on the left side of her face. Patient was [facility] via EMS. Patient was noted to have significant cervical spine injury and transferred to [facility] emergency department for further evaluation. Patient was [...] patient's primary care physician covering provider at correction facility. Continue home medication. Blood glucose checks TID. Sliding scale TID ADA diet Glycemic goal <180 Hypokalemia- resolved. Repeat BMP reviewed. Chronic hypoxic respiratory failure. Patient is tolerating oxygen via nasal cannula. 2 L which is baseline. Acute E. coli urinary tract infection. Patient has completed a full course of ceftriaxone Therapy and occasional therapy consult. Recommending patient be discharged to correction facility. Patient is agreeable to discharge to correction facility. Discharge per primary team. At this [...] by JOANNA TOMLINSON on 07/20/2022 01:37 PM [facility] [id number] Neurological surgery Progress note Date of Service 07/20/2022 Chief Complaint S/P C2 to C7 decompressive laminectomy, C2 to T2 posterior bone screw/merari fixation (Infinity; Medtronic) with autograft/allograft (Infuse; Medtronic) fusion with navigation and intraoperative SSEP, MEP and EMG [id number]-nuku-or day #7. This is a 71-year-old female, who sustained an unstable C6-7 fracture/dislocation status post falling over her walker and landing on the left side of her body and face. She was evaluated in the [facility] emergency department, where she was found to [...] TRACE MATTHEWS MD on 07/20/2022 10:34 AM [facility] [id number] Progress note Date of Service July 19, [...] TRACE MATTHEWS MD on 07/19/2022 09:14 AM [facility] [id number] Note Date of Service 07/18/2022 Split/shared visit [...] completed, have provided recommendations for skilled rehab. AIR SUPPORT OPERATIONS OPERATOR to assist with discharge planning. ICU team following for medical and pulmonary management; appreciate their support and assistance incare of patient. Please refer to Dr. Mccallum's addendum for further details. [1] VL Venous US/Doppler Both Legs(for DVT); 07/18/2022 11:00 EDT Digitally Signed by PELON RUIZ APRN-SILVINO on 07/18/2022 04:44 PM [facility] [id number] Note Date of Service 07/18/2022 Split/shared visit [...] on bilaterally now, and while in bed. HSAMUKH Drain output overnight/ last 8 hrs: Drain [...] L BUN: 16.0 Creatinine Lvl (s): 0.55 09/03 07:05 WBC: 7.0 Hgb: 8.6 L Hct: [...] completed, have provided recommendations for skilled rehab. AIR SUPPORT OPERATIONS OPERATOR to assist with discharge planning. ICU team following for medical and pulmonary management; appreciate their support and assistance incare of patient. Please refer to Dr. Mccallum's addendum for further details. [1] VL Venous US/Doppler Both Legs(for DVT); 07/18/2022 11:00 EDT Digitally Signed by PELON RUIZ on 07/18/2022 04:44 PM [facility] [id number] Note Date of Service 07/18/2022 Split/shared visit [...] completed, have provided recommendations for skilled rehab. AIR SUPPORT OPERATIONS OPERATOR to assist with discharge planning. ICU team following for medical and pulmonary management; appreciate their support and assistance incare of patient. Please refer to Dr. Mccallum's addendum for further details. [1] VL Venous US/Doppler Both Legs(for DVT); 07/18/2022 11:00 EDT Digitally Signed by PELON RUIZ on 07/18/2022 04:44 PM [facility] [id number] Note Date of Service 07/18/2022 Split/shared visit [...] completed, have provided recommendations for skilled rehab. AIR SUPPORT OPERATIONS OPERATOR to assist with discharge planning. ICU team following for medical and pulmonary management; appreciate their support and assistance incare of patient. Please refer to Dr. Mccallum's addendum for further details. [1] VL Venous US/Doppler Both Legs(for DVT); 07/18/2022 11:00 EDT Digitally Signed by PELON RUIZ on 07/18/2022 04:44 PM [facility] [id number] Note Date of Service 07/18/22 Subjective This [...] KENY VARGAS MD on 07/18/2022 08:05 AM [facility] [id number] Note Date of Service 07/17/2022 Split/shared visit [...] lower extremities for assessment of possible DVT/SVT. Community Development Planner following for medical and pulmonary management; appreciate their support and assistancein care of patient. Please refer to Dr. Mccallum's addendum for further details. Dr Lerner like patient to remain in ICU until Doppler ultrasounds have been completed. Further instructions will be provided at that time. Digitally Signed by PELON RUIZ on 07/17/2022 11:16 AM [facility] [id number] Note Date of Service 07/17/22 Subjective This [...] GI prophylaxis. Heparin subcu for DVT prophylaxis once okay by neurosurgery 4. Ceftriaxone for E. coli UTI for total of 7 days 5. Glycemic protocol 6. Cefazolin for prophylaxis due to HASMUKH drain 7. Add bowel regimen 8. Activity/diet as tolerated Time Spent 20 minutes. Stable for transfer out of ICU from critical care standpoint Digitally Signed by KENY VARGAS MD on 07/17/2022 08:39 AM [facility] [id number] Note Date of Service 07/17/2022 Split/shared visit [...] lower extremities for assessment of possible DVT/SVT. Community Development Planner following for medical and pulmonary management; appreciate their support and assistancein care of patient. Please refer to Dr. Mccallum's addendum for further details. Dr Lerner like patient to remain in ICU until Doppler ultrasounds have been completed. Further instructions will be provided at that time. Digitally Signed by PELON RUIZ on 07/17/2022 11:16 AM [facility] [id number] Neurological surgery Progress note Date of Service 07/16/2022 Chief Complaint S/P C2 to C7 decompressive laminectomy, C2 to T2 posterior bone screw/merari fixation (Infinity; Medtronic) with autograft/allograft (Infuse; Medtronic) fusion with navigation and intraoperative SSEP, MEP and EMG yczwdbkhal-fqjw-vk day #3. This is a 71-year-old female, who sustained an unstable C6-7 fracture/dislocation status post falling over her walker and landing on the left side of her body and face. She was evaluated in the [facility] emergency department, where she was found to [...] neurosurgery to be notified to further evaluate. Community Development Planner following for medical and pulmonary management. Time Spent 15 min Digitally Signed by ARYAN VAZ APRN-SILVINO on 07/16/2022 12:12 PM [facility] [id number] Neurological surgery Progress note Date of Service 07/16/2022 Chief Complaint S/P C2 to C7 decompressive laminectomy, C2 to T2 posterior bone screw/merari fixation (Infinity; Medtronic) with autograft/allograft (Infuse; Medtronic) fusion with navigation and intraoperative SSEP, MEP and EMG wdzmtkjjgq-ifkz-xu day #3. This is a 71-year-old female, who sustained an unstable C6-7 fracture/dislocation status post falling over her walker and landing on the left side of her body and face. She was evaluated in the [facility] emergency department, where she was found to [...] brace at all times. -[facility] Dr. Lerner would prefer to wait 5 days post-op to start chemical DVT prophylaxis. Will obtain LE dopplars on Tuesday and then likely clear patient to start Heparin sq. -In meantime continue SCDS. -Continue measuring thigh and calf bilateral twice a day and if increases in size by 1cm neurosurgery to be notified to further evaluate. Community Development Planner following for medical and pulmonary management. Time Spent 15 min Digitally Signed by ARYAN VAZ on 07/16/2022 12:12 PM [id number] Note Date of Service 07/16/2022 Chief Complaint [...] C2C3 so that patient was transferred to [facility] where she was evaluated per neurosurgery Dr. [...] ANNE-MARIE MCGRAW MD on 07/16/2022 09:57 AM [facility] [id number] Neurological surgery Progress note Date of Service 07/14/2022 Chief Complaint S/P C2 to C7 decompressive laminectomy, C2 to T2 posterior bone screw/merari fixation (Infinity; Medtronic) with autograft/allograft (Infuse; Medtronic) fusion with navigation and intraoperative SSEP, MEP and EMG [id number]-[id number] day #1. This is a 71-year-old female, who sustained an unstable C6-7 fracture/dislocation status post falling over her walker and landing on the left side of her body and face. She was evaluated in the [facility] emergency department, where she was found to have a distraction extension fracture at C6/7 with bilateral pedicle fractures. She was transferred to [facility] for Neurosurgery evaluation. Shewas taken to surgery yesterday for a C2-C7 decompressive laminectomy and C2-T2 posterior bone screw/merari fixation and fusion. She does have facial swelling, and therefore remains intubated. Community Development Planner plan to keep patient intubated today and [...] No edema noted Neurological: See HPI Skin: [place], warm, and dry. Psychiatric: Mood stable. Cooperative. [...] fracture of C6 with extension distraction fracture C6-Q7xfxme no change in alignment. XR Chest 1 [...] be extubated tomorrow and can start PT/OT. Community Development Planner following for medical and pulmonary management. Time Spent 15 min Digitally Signed by ARYAN VAZ on 07/14/2022 11:59 AM [facility] [id number] Neurological surgery Progress note Date of Service 07/15/2022 Chief Complaint S/P C2 to C7 decompressive laminectomy, C2 to T2 posterior bone screw/merari fixation (Infinity; Medtronic) with autograft/allograft (Infuse; Medtronic) fusion with navigation and intraoperative SSEP, MEP and EMG nxtfljkkli-[id number] day #2. This is a 71-year-old female, who sustained an unstable C6-7 fracture/dislocation status post falling over her walker and landing on the left side of her body and face. She was evaluated in the [facility] emergency department, where she was found to [...] neurosurgery to be notified to further evaluate. Community Development Planner following for medical and pulmonary management. Time Spent 15 min Digitally Signed by ARYAN VAZ on 07/15/2022 01:20 PM [facility] [id number] Neurological surgery Progress note Date of Service 07/14/2022 Chief Complaint S/P C2 to C7 decompressive laminectomy, C2 to T2 posterior bone screw/merari fixation (Infinity; Medtronic) with autograft/allograft (Infuse; Medtronic) fusion with navigation and intraoperative SSEP, MEP and EMG [id number]-padk-rm day #1. This is a 71-year-old female, who sustained an unstable C6-7 fracture/dislocation status post falling over her walker and landing on the left side of her body and face. She was evaluated in the [facility] emergency department, where she was found to have a distraction extension fracture at C6/7 with bilateral pedicle fractures. She was transferred to [facility] for Neurosurgery evaluation. Shewas taken to surgery yesterday for a C2-C7 decompressive laminectomy and C2-T2 posterior bone screw/merari fixation and fusion. She does have facial swelling, and therefore remains intubated. Community Development Planner plan to keep patient intubated today and [...] No edema noted Neurological: See HPI Skin: [place], warm, and dry. Psychiatric: Mood stable. Cooperative. [...] fracture of C6 with extension distraction fracture C6-H9ckdjy no change in alignment. XR Chest 1 [...] Date: July 11, 2022 Verified By: YOAV PAOLMINO DO CLINICAL STATEMENT: IMPRESSION: Limited exam secondary [...] be extubated tomorrow and can start PT/OT. Community Development Planner following for medical and pulmonary management. Time Spent 15 min Digitally Signed by ARYAN VAZ on 07/14/2022 11:59 AM [facility] [id number] Neurological surgery Progress note Date of Service 07/15/2022 Chief Complaint S/P C2 to C7 decompressive laminectomy, C2 to T2 posterior bone screw/merari fixation (Infinity; Medtronic) with autograft/allograft (Infuse; Medtronic) fusion with navigation and intraoperative SSEP, MEP and EMG [id number]-edab-vl day #2. This is a 71-year-old female, who sustained an unstable C6-7 fracture/dislocation status post falling over her walker and landing on the left side of her body and face. She was evaluated in the [facility] emergency department, where she was found to [...] neurosurgery to be notified to further evaluate. Community Development Planner following for medical and pulmonary management. Time Spent 15 min Digitally Signed by ARYAN VAZ on 07/15/2022 01:20 PM [facility] [id number] Note Date of Service 07/15/2022 Subjective 71 [...] C2C3 so that patient was transferred to [facility] where she was evaluated per neurosurgery Dr. [...] DARLING EDWARDS MD on 07/15/2022 08:56 AM [facility] [id number] Note ORIGINAL EXAMINATION: ONE XRAY VIEW OF [...] 07/15/2022 6:01:36 AM Ordering Provider: OSEI STOVER [facility] [id number] Note ORIGINAL EXAMINATION: ONE XRAY VIEW OF [...] Eder Clark MD Preliminary Report By: Mariana Blake Electronically signed By Eder Clark MD Dictated Date: 07/15/2022 5:49:34 AM Prelim Date: 07/15/2022 5:52:26 AM Sign Date: 07/15/2022 6:01:36 AM Ordering Provider: [facility]08-31-2022 Neurological surgery Progress note Date of Service 07/14/2022 Chief Complaint S/P C2 to C7 decompressive laminectomy, C2 to T2 posterior bone screw/merari fixation (Infinity; Medtronic) with autograft/allograft (Infuse; Medtronic) fusion with navigation and intraoperative SSEP, MEP and EMG oagefrwhoq-zioc-ua day #1. This is a 71-year-old female, who sustained an unstable C6-7 fracture/dislocation status post falling over her walker and landing on the left side of her body and face. She was evaluated in the [facility] emergency department, where she was found to have a distraction extension fracture at C6/7 with bilateral pedicle fractures. She was transferred to [facility] for Neurosurgery evaluation. Shewas taken to surgery yesterday for a C2-C7 decompressive laminectomy and C2-T2 posterior bone screw/merari fixation and fusion. She does have facial swelling, and therefore remains intubated. Community Development Planner plan to keep patient intubated today and [...] No edema noted Neurological: See HPI Skin: [place], warm, and dry. Psychiatric: Mood stable. Cooperative. [...] fracture of C6 with extension distraction fracture C6-Y2otoxn no change in alignment. XR Chest 1 [...] Result Date: July 12, 2022 Verified By: DEER CLARK MD CLINICAL STATEMENT: IMPRESSION: Nondiagnostic assessment [...] be extubated tomorrow and can start PT/OT. Community Development Planner following for medical and pulmonary management. Time Spent 15 min Digitally Signed by ARYAN VAZ on 07/14/2022 11:59 AM [facility] [id number] Note ORIGINAL EXAMINATION: ONE SUPINE XRAY VIEW(S) [...] Sign Date: 07/14/2022 9:41:47 AM Ordering Provider: [facility]08-31-2022 Note ORIGINAL EXAMINATION: ONE SUPINE [...] Sign Date: 07/14/2022 9:41:47 AM Ordering Provider: [facility]08-31-2022 Note Date of Service 07/14/2022 Chief [...] C2C3 so that patient was transferred to [facility] where she was evaluated per neurosurgery Dr. [...] ANNE-MARIE MCGRAW MD on 07/16/2022 09:53 AM [address]31-2022 Note ORIGINAL EXAMINATION: CT OF THE CERVICAL [...] 07/14/2022 6:52:00 AM Ordering Provider: NITA MADERA [facility] [id number] Note ORIGINAL EXAMINATION: ONE XRAY VIEW OF [...] Sign Date: 07/14/2022 6:00:18 AM Ordering Provider: [facility]08-31-2022 Note ORIGINAL EXAMINATION: ONE XRAY VIEW OF [...] 07/14/2022 6:00:18 AM Ordering Provider: [facility]08-31-2022 Note ORIGINAL EXAMINATION: CT OF THE [...] Sign Date: 07/14/2022 6:52:00 AM Ordering Provider: [facility]08-31-2022 Note ORIGINAL EXAMINATION: SPOT FLUOROSCOPIC IMAGES 07/13/2022 [...] 07/14/2022 4:26:28 AM Ordering Provider: MARYCHUY LERNER [facility] [id number] Note ORIGINAL EXAMINATION: ONE XRAY VIEW OF [...] 07/13/2022 9:06:27 PM Ordering Provider: [place] COOL [facility] [id number] Note ORIGINAL EXAMINATION: ONE XRAY VIEW OF [...] Date: 07/13/2022 9:06:27 PM Ordering Provider: [place] COOLSelect [facility] [id number] Note ORIGINAL EXAMINATION: SPOT FLUOROSCOPIC IMAGES 07/13/2022 [...] Date: 07/14/2022 4:26:28 AM Ordering Provider: MARYCHUY ZhaoBarney Children's Medical CenterGxibnofg49-95-3670 Note Date of Service 07/13/2022 Split/shared visit with Dr. Jaswant MD Neurosurgical CC: Unstable C6-7 fracture or dislocation post fall. C2-C3 stenosis with cervical myelopathy Patient is a 71-year-old female who was brought to [facility] via EMS after sustaining a fall over her walker landing on her left side and face on 07/11/2022. 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 Patient transferred to [facility] ED. 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 Negative Pierre's. She does have 3 beats [...] pain post fall. She was taken to [facility] by EMS found to have cervical spine injury and transferred to [facility]. Stat MRI completed and patient was admitted [...] by NITA MADERA on 07/13/2022 05:50 AM [facility] [id number] Note ORIGINAL EXAMINATION: TWO XRAY VIEWS OF [...] Sign Date: 07/13/2022 3:47:11 PM Ordering Provider: [facility]08-30-2022 Note ORIGINAL EXAMINATION: TWO XRAY VIEWS OF [...] Sign Date: 07/13/2022 3:47:11 PM Ordering Provider: [facility]08-30-2022 Anesthesiology Consult note Patient: POLI RAMIREZ [...] a prior cardiac history including a previous [place], however, she has not had any interventions, [...] Constipation NS 1,000 mL: 50 mL/hr, Intravenous [place] 325- 5 mg oral tablet: 1 tab(s), [...] list: Medical Chronic anemia / SNOMED CT 329976835 / Confirmed Chronic back pain / SNOMED CT 309919216 / Confirmed COPD / SNOMED CT 74730522 / Confirmed Hypertension, essential / SNOMED CT 53964250 / Confirmed GERD (gastroesophageal reflux disease) / SNOMED CT [id number] / Confirmed Goiter / SNOMED CT 9953937 / Confirmed Hyperlipidemia / SNOMED CT 09784917 / Confirmed Incontinence of urine / SNOMED CT 0519167872 / Confirmed, Active Problems (30) Anemia Arthritis [...] incontinence Histories Past Medical History: Active COPD (51079592) Chronic back pain (174739044) Resolved H/O hypercholesterolemia (1637320929): Resolved. Hypernatremia (3057253350): Resolved. Family History: Heart disease Father Brother Arthritis Daughter Stroke Mother Cancer Sister HTN - Hypertension Mother GERD (gastroesophageal reflux disease) Daughter Diverticulitis Daughter Procedure history: None (017600298). Appendectomy (725501130). Comments: 08/11/2017 12:13 SHAMA BOLTON left water taken off Tubal ligation (124611846). Cholecystectomy (70397934). Arthroscopic knee operation (0058460501). Comments: 12/24/2019 13:16 SHAMA Gabriel right Lumpectomy of breast (5550462807). Comments: 12/24/2019 13:16 SHAMA Gabriel left Phacoemulsification of cataract with intraocular lens implantation (3497782852). Comments: 12/24/2019 13:16 SHAMA Gabriel both eyes Colonoscopy (583803534). Esophagogastroduodenoscopy (228152119). Cardiac catheter (9761823267). Comments: 12/24/2019 13:17 SHAMA Gabriel years ago [...] kg (Modified) Weight Lbs 217.1 lb (Modified) [place] Body Weight 56.91 kg BSA Admission 2.05 [...] On and Limits Checked Nail Bed Color [place] Capillary Refill < 2 seconds Heart Sounds [...] grimaces Skin Symptoms Bruising All Extremity Description [place] Skin Temperature Warm Temperature All Extremities Warm Skin Description [place], Normal for ethnicity Skin Integrity Not intact Skin Turgor Non-Elastic Mucous Membrane Color [place] Mucous Membrane Description Moist Nose Anterior Skin [...] Zeke Obeys simple commands Best Verbal Response Warren Oriented Zeke Coma Score 14 YANICK Yes [...] Appropriate, Calm, Cooperative Orientation Oriented x 4 Plant Etiologist On Yes Patient Dressed In Hospital gown [...] On and Limits Checked Nail Bed Color [place] Capillary Refill < 2 seconds Heart Sounds ICU S1S2 Heart Rhythm Regular Dorsalis Pedis Pulse, Left 1+ Thready Dorsalis Pedis Pulse, Right 1+ Thready Posttibial Pulse, Left 1+ Thready Posttibial Pulse, Right 1+ Thready Radial Pulse, Left 2+ Normal Radial Pulse, Right 2+ Normal Edema Generalized None Cardiac Rhythm Sinus tachycardia Monitoring Lead II, V1/MCL1 AL Interval 0.16 second(s) QRS Duration 0.09 second(s) [...] grimaces Skin Symptoms Bruising All Extremity Description [place] Skin Temperature Warm Temperature All Extremities Warm Skin Description [place], Normal for ethnicity Skin Integrity Not intact Skin Turgor Non-Elastic Mucous Membrane Color [place] Mucous Membrane Description Moist Nose Anterior Skin [...] Response Zeke To voice Best Motor Response Warren Obeys simple commands Best Verbal Response Warren Oriented Zeke Coma Score 14 YANICK Yes [...] On and Limits Checked Nail Bed Color [place] Capillary Refill < 2 seconds Heart Sounds [...] grimaces Skin Symptoms Bruising All Extremity Description [place] Skin Temperature Warm Temperature All Extremities Warm Skin Description [place], Normal for ethnicity Skin Integrity Not intact Skin Turgor Elastic Mucous Membrane Color [place] Mucous Membrane Description Moist Nose Anterior Skin [...] Arousable with minimal stimulation Eye Opening Response Warren To voice Best Motor Response Zeke Obeys simple commands Best Verbal Response Zeke Oriented Warren Coma Score 14 YANICK Yes Left Pupil [...] Mode Order Detail Bed Nurse and Monitor Marine Extension Agent Details Form Marine Extension Agent Details Form 07/13/2022 0:40 EDT Notify date/time 07/13/2022 0:40 Provider Notified [place] COOL APRN-SILVINO Notification Method Phone Information Communicated Lab results [...] On and Limits Checked Nail Bed Color [place] Capillary Refill < 2 seconds Heart Sounds ICU S1S2 Heart Rhythm Regular Dorsalis Pedis Pulse, Left 1+ Thready Dorsalis Pedis Pulse, Right 1+ Thready Posttibial Pulse, Left 1+ Thready Posttibial Pulse, Right 1+ Thready Radial Pulse, Left 2+ Normal Radial Pulse, Right 2+ Normal Edema Generalized None Cardiac Rhythm Sinus tachycardia Monitoring Lead II, V1/MCL1 AL Interval 0.13 second(s) QRS Duration 0.08 second(s) [...] grimaces Skin Symptoms Bruising All Extremity Description [place] Skin Temperature Warm Temperature All Extremities Warm Skin Description [place], Normal for ethnicity Skin Integrity Not intact Skin Turgor Non-Elastic Mucous Membrane Color [place] Mucous Membrane Description Moist Nose Anterior Skin [...] Arousable with minimal stimulation Eye Opening Response Warren To voice Best Motor Response Zeke Obeys simple commands Best Verbal Response Zeke Oriented Warren Coma Score 14 YANICK Yes Left Pupil [...] Appropriate, Calm, Cooperative Orientation Oriented x 4 [facility] [id number] Note Date of Service 07/13/2022 Split/shared visit with Dr. Jaswant MD Neurosurgical CC: Unstable C6-7 fracture or dislocation post fall. C2-C3 stenosis with cervical myelopathy Patient is a 71-year-old female who was brought to [facility] via EMS after sustaining a fall over her walker landing on her left side and face on 07/11/2022. 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 Patient transferred to [facility] ED. 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 Negative Pierre's. She does have 3 beats [...] pain post fall. She was taken to [facility] by EMS found to have cervical spine injury and transferred to [facility] ED. Stat MRI completed and patient was [...] by NITA MADERA on 07/13/2022 05:50 AM [facility] [id number] Anesthesiology Consult note* ALEJANDRA HERNANDEZ MD: PERFORM, SIGN, VERIFY Event Display: Anesthesiology Consultation Authored Date: [id number] Patient: POLI RAMIREZ Age: 71 years Sex: [...] a prior cardiac history including a previous [place], however, she has not had any interventions, [...] Constipation NS 1,000 mL: 50 mL/hr, Intravenous [place] 325- 5 mg oral tablet: 1 tab(s), [...] list: Medical Chronic anemia / SNOMED CT 344965851 / Confirmed Chronic back pain / SNOMED CT 970869203 / Confirmed COPD / SNOMED CT 30014789 / Confirmed Hypertension, essential / SNOMED CT 06831269 / Confirmed GERD (gastroesophageal reflux disease) / SNOMED CT [id number] / Confirmed Goiter / SNOMED CT 2822290 / Confirmed Hyperlipidemia / SNOMED CT 45505933 / Confirmed Incontinence of urine / SNOMED CT 6280236153 / Confirmed, Active Problems (30) Anemia Arthritis [...] incontinence Histories Past Medical History: Active COPD (22003908) Chronic back pain (770351233) Resolved H/O hypercholesterolemia (5172825635): Resolved. Hypernatremia (8604017465): Resolved. Family History: Heart disease Father Brother Arthritis Daughter Stroke Mother Cancer Sister HTN - Hypertension Mother GERD (gastroesophageal reflux disease) Daughter Diverticulitis Daughter Procedure history: None (693592440). Appendectomy (073453987). Comments: 08/11/2017 12:13 SHAMA BOLTON left water taken off Tubal ligation (232123044). Cholecystectomy (65193386). Arthroscopic knee operation (7363451873). Comments: 12/24/2019 13:16 SHAMA Gabriel right Lumpectomy of breast (2923370778). Comments: 12/24/2019 13:16 SHAMA Gabriel left Phacoemulsification of cataract with intraocular lens implantation (5673594065). Comments: 12/24/2019 13:16 SHAMA Gabriel both eyes Colonoscopy (751351043). Esophagogastroduodenoscopy (494482734). Cardiac catheter (9636951560). Comments: 12/24/2019 13:17 SHAMA Gabriel years ago [...] kg (Modified) Weight Lbs 217.1 lb (Modified) [place] Body Weight 56.91 kg BSA Admission 2.05 [...] On and Limits Checked Nail Bed Color [place] Capillary Refill < 2 seconds Heart Sounds [...] grimaces Skin Symptoms Bruising All Extremity Description [place] Skin Temperature Warm Temperature All Extremities Warm Skin Description [place], Normal for ethnicity Skin Integrity Not intact Skin Turgor Non-Elastic Mucous Membrane Color [place] Mucous Membrane Description Moist Nose Anterior Skin [...] Arousable with minimal stimulation Eye Opening Response Warren To voice Best Motor Response Zeke Obeys simple commands Best Verbal Response Warren Oriented Zeke Coma Score 14 YANICK Yes [...] Appropriate, Calm, Cooperative Orientation Oriented x 4 Plant Etiologist On Yes Patient Dressed In Hospital gown [...] On and Limits Checked Nail Bed Color [place] Capillary Refill < 2 seconds Heart Sounds ICU S1S2 Heart Rhythm Regular Dorsalis Pedis Pulse, Left 1+ Thready Dorsalis Pedis Pulse, Right 1+ Thready Posttibial Pulse, Left 1+ Thready Posttibial Pulse, Right 1+ Thready Radial Pulse, Left 2+ Normal Radial Pulse, Right 2+ Normal Edema Generalized None Cardiac Rhythm Sinus tachycardia Monitoring Lead II, V1/MCL1 AL Interval 0.16 second(s) QRS Duration 0.09 second(s) [...] grimaces Skin Symptoms Bruising All Extremity Description [place] Skin Temperature Warm Temperature All Extremities Warm Skin Description [place], Normal for ethnicity Skin Integrity Not intact Skin Turgor Non-Elastic Mucous Membrane Color [place] Mucous Membrane Description Moist Nose Anterior Skin [...] Arousable with minimal stimulation Eye Opening Response Warren To voice Best Motor Response Warren Obeys simple commands Best Verbal Response Zeke [...] On and Limits Checked Nail Bed Color [place] Capillary Refill < 2 seconds Heart Sounds [...] grimaces Skin Symptoms Bruising All Extremity Description [place] Skin Temperature Warm Temperature All Extremities Warm Skin Description [place], Normal for ethnicity Skin Integrity Not intact Skin Turgor Elastic Mucous Membrane Color [place] Mucous Membrane Description Moist Nose Anterior Skin [...] simple commands Best Verbal Response Zeke Oriented Warren Coma Score 14 YANICK Yes Left Pupil [...] Mode Order Detail Bed Nurse and Monitor Marine Extension Agent Details Form Marine Extension Agent Details Form 07/13/2022 0:40 EDT Notify date/time [...] On and Limits Checked Nail Bed Color [place] Capillary Refill < 2 seconds Heart Sounds ICU S1S2 Heart Rhythm Regular Dorsalis Pedis Pulse, Left 1+ Thready Dorsalis Pedis Pulse, Right 1+ Thready Posttibial Pulse, Left 1+ Thready Posttibial Pulse, Right 1+ Thready Radial Pulse, Left 2+ Normal Radial Pulse, Right 2+ Normal Edema Generalized None Cardiac Rhythm Sinus tachycardia Monitoring Lead II, V1/MCL1 AL Interval 0.13 second(s) QRS Duration 0.08 second(s) [...] grimaces Skin Symptoms Bruising All Extremity Description [place] Skin Temperature Warm Temperature All Extremities Warm Skin Description [place], Normal for ethnicity Skin Integrity Not intact Skin Turgor Non-Elastic Mucous Membrane Color [place] Mucous Membrane Description Moist Nose Anterior Skin [...] Arousable with minimal stimulation Eye Opening Response Warren To voice Best Motor Response Warren Obeys simple commands Best Verbal Response Warren Oriented Warren Coma Score 14 YANICK Yes Left Pupil [...] mL 07/12/2022 22:59 EDT IV Present Present Plant Etiologist On Yes Patient Dressed In Hospital gown [...] On and Limits Checked Nail Bed Color [place] Capillary Refill < 2 seconds Heart Sounds [...] grimaces Skin Symptoms Bruising All Extremity Description [place] Skin Temperature Warm Temperature All Extremities Warm Skin Description [place], Normal for ethnicity Skin Integrity Not intact Skin Turgor Elastic Mucous Membrane Color [place] Mucous Membrane Description Moist Nose Anterior Skin [...] Arousable with minimal stimulation Eye Opening Response Warren To voice Best Motor Response Zeke Obeys simple commands Best Verbal Response Warren Oriented Zeke Coma Score 14 YANICK Yes [...] Type 0-10 Pain scale Nail Bed Color [place] Capillary Refill < 2 seconds Dorsalis Pedis [...] grimaces Skin Symptoms Bruising All Extremity Description [place] Skin Temperature Warm Temperature All Extremities Warm Skin Description [place], Normal for ethnicity Skin Integrity Not intact Skin Turgor Elastic Mucous Membrane Color [place] Mucous Membrane Description Moist Nose Anterior Skin [...] Response Zeke To voice Best Motor Response Warren Obeys simple commands Best Verbal Response Warren Oriented Zeke Coma Score 14 YANICK Yes [...] Type 0-10 Pain scale Nail Bed Color [place] Capillary Refill < 2 seconds Heart Rhythm [...] On Skin Symptoms Bruising All Extremity Description [place] Skin Temperature Warm Temperature All Extremities Warm Skin Description [place], Normal for ethnicity Skin Integrity Not intact Skin Turgor Elastic Mucous Membrane Color [place] Mucous Membrane Description Moist Nose Anterior Skin [...] Response Zeke To voice Best Motor Response Warren Obeys simple commands Best Verbal Response Warren Oriented Warren Coma Score 14 YANICK Yes Left Pupil [...] Mode Order Detail Bed Nurse and Monitor Marine Extension Agent Details Form Marine Extension Agent Details Form 07/12/2022 15:18 EDT SN - [...] Type 0-10 Pain scale Nail Bed Color [place] Capillary Refill < 2 seconds Heart Rhythm Regular Dorsalis Pedis Pulse, Left 1+ Thready Dorsalis Pedis Pulse, Right 1+ Thready Posttibial Pulse, Left 1+ Thready Posttibial Pulse, Right 1+ Thready Radial Pulse, Left 2+ Normal Radial Pulse, Right 2+ Normal Edema Generalized None Cardiac Rhythm Bundle branch block Cardiac Rhythm Sinus tachycardia Monitoring Lead II AL Interval 0.13 second(s) QRS Duration 0.12 second(s) [...] On Skin Symptoms Bruising All Extremity Description [place] Skin Temperature Warm Temperature All Extremities Warm Skin Description [place], Normal for ethnicity Skin Integrity Not intact Skin Turgor Elastic Mucous Membrane Color [place] Mucous Membrane Description Moist Nose Anterior Skin [...] Arousable with minimal stimulation Eye Opening Response Warren Spontaneously Best Motor Response Zeke Obeys simple commands Best Verbal Response Zeke Oriented Warren Coma Score 15 YANICK Yes Left Pupil [...] Type 0-10 Pain scale Nail Bed Color [place] Capillary Refill < 2 seconds Heart Rhythm [...] On Skin Symptoms Bruising All Extremity Description [place] Skin Temperature Warm Temperature All Extremities Warm Skin Description [place], Normal for ethnicity Skin Integrity Not intact Skin Turgor Elastic Mucous Membrane Color [place] Mucous Membrane Description Moist Continuous IV Infusions NS @ 50ml/hr Forearm Right 18 gauge Peripheral IV Site Condition: No complications Neurological Language Able to speak clearly Neurological Symptoms Numbness Gait Unable to assess Extremity Movement Equal Swallowing Difficulty None Characteristics of Communication Appropriate Characteristics of Speech Clear Facial Symmetry Symmetric Level of Consciousness Arousable with minimal stimulation Eye Opening Response Warren Spontaneously Best Motor Response Zeke Obeys simple [...] Person #2 We May Share PHI Jocy [phone] Designated Person #2 Relationship Daughter Privacy Restrictions Requested None (Modified) Height 165 cm (Modified) Height in inches 65 inch(es) (Modified) Admission Weight 98.7 kg (Modified) Weight Lbs 217.1 lb (Modified) [place] Body Weight 56.91 kg BSA Admission 2.05 [...] Advanced Directives Yes (Modified) Advance Directive Type [place] Declaration (Living Will) (Modified) Advance Directive Location [...] Verbalizes/Nonverbally indicates understanding (Modified) Preferred Written Language [place] (Modified) Preferred Spoken Language [place] (Modified) Information Given by Patient (Modified) Patient's [...] Type 0-10 Pain scale Nail Bed Color [place] Capillary Refill < 2 seconds Heart Sounds ICU S1S2 Heart Rhythm Regular Dorsalis Pedis Pulse, Left 1+ Thready Dorsalis Pedis Pulse, Right 1+ Thready Posttibial Pulse, Left 1+ Thready Posttibial Pulse, Right 1+ Thready Edema Generalized None Cardiac Rhythm Bundle branch block Cardiac Rhythm Sinus tachycardia Monitoring Lead II AL Interval 0.14 second(s) QRS Duration 0.12 second(s) [...] On Skin Symptoms Bruising All Extremity Description [place] Skin Temperature Warm Temperature All Extremities Warm Skin Description [place], Normal for ethnicity Skin Integrity Not intact Skin Turgor Elastic Mucous Membrane Color [place] Mucous Membrane Description Moist Nose Anterior Skin [...] Type 0-10 Pain scale Nail Bed Color [place] Capillary Refill < 2 seconds Dorsalis Pedis [...] On Skin Symptoms Bruising All Extremity Description [place] Skin Temperature Warm Temperature All Extremities Warm Skin Description [place], Normal for ethnicity Skin Integrity Not intact Skin Turgor Elastic Mucous Membrane Color [place] Mucous Membrane Description Moist Nose Anterior Wound [...] Mode Order Detail Bed Nurse and Monitor Marine Extension Agent Details Form Marine Extension Agent Details Form 07/12/2022 8:15 EDT Magnesium Lvl [...] Type 0-10 Pain scale Nail Bed Color [place] Capillary Refill < 2 seconds Heart Sounds ICU S1S2 Heart Rhythm Regular Dorsalis Pedis Pulse, Left 1+ Thready Dorsalis Pedis Pulse, Right 1+ Thready Posttibial Pulse, Left 1+ Thready Posttibial Pulse, Right 1+ Thready Radial Pulse, Left 2+ Normal Radial Pulse, Right 2+ Normal Edema Generalized None Cardiac Rhythm Sinus tachycardia, Bundle branch block Monitoring Lead II, V1/MCL1 AL Interval 0.14 second(s) QRS Duration 0.13 second(s) [...] On Skin Symptoms Bruising All Extremity Description [place] Skin Temperature Warm Temperature All Extremities Warm Skin Description [place], Normal for ethnicity Skin Integrity Not intact Skin Turgor Elastic Mucous Membrane Color [place] Mucous Membrane Description Moist Nose Anterior Skin [...] Opening Response Zeke Spontaneously Best Motor Response Warren Obeys simple commands Best Verbal Response Zkee Oriented Warren Coma Score 15 YANICK Yes Left Pupil [...] On and Limits Checked Nail Bed Color [place] Capillary Refill < 2 seconds Heart Sounds [...] On Skin Symptoms Bruising All Extremity Description [place] Skin Temperature Warm Skin Description [place], Normal for ethnicity Skin Integrity Not intact Skin Turgor Elastic Mucous Membrane Color [place] Mucous Membrane Description Moist Nose Anterior Skin Abnormality Type: Abrasion Wound Status: No complications Neurological Language Able to speak clearly, Follows simple commands Neurological Symptoms Numbness Gait Unable to assess Extremity Movement Equal Swallowing Difficulty None Characteristics of Communication Appropriate Characteristics of Speech Clear Facial Symmetry Symmetric Level of Consciousness Arousable with minimal stimulation Eye Opening Response Warren Spontaneously Best Motor Response Warren Obeys simple commands Best Verbal Response Warren Oriented Zeke Coma Score 15 YANICK Yes [...] On and Limits Checked Nail Bed Color [place] Capillary Refill < 2 seconds Heart Sounds [...] On Skin Symptoms Bruising All Extremity Description [place] Skin Temperature Warm Temperature All Extremities Warm Skin Description [place], Dry Skin Integrity Not intact Skin Turgor Elastic Mucous Membrane Color [place] Mucous Membrane Description Moist Nose Anterior Wound [...] Zeke Obeys simple commands Best Verbal Response Warren Oriented Warren Coma Score 14 YANICK Yes Left Pupil [...] Mode Order Detail Bed Nurse and Monitor Marine Extension Agent Details Form Marine Extension Agent Details Form 07/12/2022 0:25 EDT Mechanical VTE Prophylaxis Education Not Done: Task Duplication (Not Done) Sequential Compression Device Form Not Done (Not Done) 07/12/2022 0:08 EDT Primary Pain Intensity 7 HYDROmorphone 0.5 mg mg ondansetron 4 mg mg . Assessment and Plan [place] [employer] Anesthesiologists (ASA) physical status classification: [...] ALEJANDRA HERNANDEZ MD on 07/13/2022 07:28 AM [facility] 08-29-2022 Note Date of Service 07/12/2022 Split/shared [...] and equal. Left tricep 2.5/5, bicep 3.5/5, painting machine operator 4/5, bilateral intrinsics are strong. Negative Pierre's. [...] pain post fall. She was taken to [facility] by EMS found to have cervical spine injury and transferred to [facility]. Stat MRI completed and patient was [...] by NITA MADERA on 07/12/2022 05:53 AM [id number] Critical care medicine Consult note Date of [...] C2C3 so that patient was transferred to [facility] where she was evaluated per neurosurgery Dr. [...] 17 gram(s)= 15 mL, Oral, qDay, PRN [place] 325- 5 mg oral tablet, 1 tab(s), [...] DARLING EDWARDS MD on 07/12/2022 09:57 AM [id number] Note ORIGINAL EXAMINATION: ONE XRAY VIEW OF [...] 07/12/2022 8:41:07 AM Ordering Provider: TEQUILA YOUNG [id number] Note Date of Service 07/12/2022 Split/shared visit [...] and equal. Left tricep 2.5/5, bicep 3.5/5, painting machine operator 4/5, bilateral intrinsics are strong. Negative Pierre's. [...] pain post fall. She was taken to [facility] by EMS found to have cervical spine injury and transferred to [facility]. Stat MRI completed and patient was [...] by NITA MADERA on 07/12/2022 05:53 AM [id number] Note ORIGINAL EXAMINATION: ONE XRAY VIEW OF [...] Date: 07/12/2022 8:41:07 AM Ordering Provider: TEQUILA [facility]08[facility] Note ORIGINAL EXAMINATION: ONE XRAY VIEW [...] Sign Date: 07/12/2022 7:52:46 AM Ordering Provider: [address]29-2022 Note ORIGINAL EXAMINATION: ONE XRAY VIEW OF [...] Sign Date: 07/12/2022 7:52:46 AM Ordering Provider: [address]29-2022 Note Date of Service 07/12/2022 Split/shared visit [...] and equal. Left tricep 2.5/5, bicep 3.5/5, painting machine operator 4/5, bilateral intrinsics are strong. Negative Pierre's. [...] pain post fall. She was taken to [facility] by EMS found to have cervical spine injury and transferred to [facility]. Stat MRI completed and patient was [...] by NITA MADERA on 07/12/2022 05:53 AM [id number] Note ORIGINAL EXAMINATION: ONE XRAY VIEW OF [...] Sign Date: 07/11/2022 7:30:42 PM Ordering Provider: NITAFABBY MADERA [facility] [id number] Note ORIGINAL EXAMINATION: ONE XRAY VIEW OF [...] 07/11/2022 7:28:52 PM Ordering Provider: NITA MADERA [facility] [id number] History and physical note Date of Service 07/11/2022 Chief Complaint Fall, neck pain History of Present Illness Mrs. Ramirez is a 71-year-old female with a past medical history of hypertension, obesity, hyperlipidemia, COPD, severe restrictive airway disease follows with [facility], noninsulin-dependent type 2 diabetes, venous insufficiency, [...] precautions have been maintained. Patient taken to [facility]. She was noted to have a significant cervical spine injury and transferred to [facility] for further evaluation and trauma work-up. Dr. Matthews was contacted and stat MRI was completed. This shows significant ligamentous disruption, dislocated and distracted fracture of C6-C7. Shalini brace was placed on the patient in the ED by Michelle Taumatropo Animationadam, myself and ED nurses. Head andneck were [...] strength noted to be unequal. Bicep/tricep and painting machine operator 3.5/5 on the left, strong on the [...] pain post fall. She was taken to [facility] by EMS found to have cervical spine injury and transferred to [facility]. Stat MRI completed and patient was [...] completed regarding recommendations for treatment Consult to ammunition supervisor for assistance with medical management and surgical [...] by NITA MADERA on 07/11/2022 06:29 PM [facility] [id number] Note ORIGINAL EXAMINATION: ONE XRAY VIEW OF [...] Date: 07/11/2022 7:30:42 PM Ordering Provider: [facility] [id number] Evaluation + Plan noteExtracted from: Title:History and Physical Author:SHIRIN MADERA FRAME POLISHER-TOOL AND EQUIPMENT RENTAL CLERK Date:07/11/22 71-year-old female sustained a unwitnessed mechanical fall over her walker landing on left side and face 07/11/2022. Denies LOC. Developed immediate neck pain post fall. She was taken to [facility] by EMS found to have cervical spine injury and transferred to [facility]. Stat MRI completed and patient was [...] completed regarding recommendations for treatment Consult to ammunition supervisor for assistance with medical management and surgical clearance. Discussed case with ICU nurse practitioner Future Appointments Appointment Date:08/10/2022 11:00:00 AM Scheduled Provider: Location:[facility] Appointment Type:NS Post Op Future Scheduled Tests Laboratory* A1C Hemoglobin 01/06/22 * Lipid Profile 01/06/22 * Complete Metabolic Panel 01/06/22 Radiology* XR Spine Cervical AP/LAT 07/27/22 [facility] 08-28-2022 Note ORIGINAL HISTORY: Fracture COMPARISON: CT [...] 07/11/2022 1:13:40 PM Ordering Provider: FABIANO MARTIN [facility] [id number] Note ORIGINAL HISTORY: Pain, fall COMPARISON: No [...] 07/11/2022 9:14:35 AM Ordering Provider: MARIANA RAMOS [facility]08-28-2022 Note ORIGINAL HISTORY: Neck pain, fall this [...] Sign Date: 07/11/2022 9:13:21 AM Ordering Provider: [address]28-2022 Note ORIGINAL HISTORY: Pain COMPARISON: No [...] Sign Date: 07/11/2022 9:03:50 AM Ordering Provider: [address]28-2022 Note ORIGINAL HISTORY: Fall COMPARISON: 04 [...] Sign Date: 07/11/2022 9:01:52 AM Ordering Provider: MARIANA [facility]08-28-2022 Note ORIGINAL HISTORY: Neck pain, fall this [...] Sign Date: 07/11/2022 9:13:21 AM Ordering Provider: [facility]08-28-2022 Note ORIGINAL HISTORY: Pain COMPARISON: No TECHNIQUE: [...] Sign Date: 07/11/2022 9:03:50 AM Ordering Provider: [facility]08-28-2022 Note ORIGINAL HISTORY: Pain, fall COMPARISON: No [...] Sign Date: 07/11/2022 9:14:35 AM Ordering Provider: [facility]08-28-2022 Note ORIGINAL HISTORY: Fall COMPARISON: 04 December [...] Sign Date: 07/11/2022 9:01:52 AM Ordering Provider: [facility]02-23-2022 Evaluation + Plan note Future Scheduled Tests Laboratory* A1C Hemoglobin 01/06/22 * Lipid Profile 01/06/22 * Complete Metabolic Panel 01/06/22 [facility] 01-21-2022 Hospital Discharge instructions Patient Education 12/04/2021 [...] Carry a medical ID card or a compact USB drive. Or wear a medical alert bracelet [...] keep having episodes of high blood sugar. [id number] [employer]. [address] [place] [address], [place] [address]. All rights reserved. This information is not [...] in vomit, stools (black or red color) [id number] [employer] [place] [address]. All rights reserved. This information is not intended as a substitute for professional medical care. Always follow yourhealthcare professional's instructions. Follow Up Care 12/04/2021 08:14:09 [facility] Address: [phone] When:2-4 days [facility] 11-02-2021 Hospital Discharge instructions Patient Education 09/15/2021 [...] meats and fish, and low-fat dairy products. [employer]. [address] [place], [place] [id number]. All rights reserved. This information is not intended as a substitute for professional medical care. Always follow [facility] professional's instructions. 09/15/2021 20:06:55 Medical Screening Exam, [...] come back to this facility in person. [employer]. [address] [place] [address]. All rights reserved. This information is not intended as a substitute for professional medical care. Always follow yourhealthcare professional's instructions. Follow Up Care 09/15/2021 18:07:55 With:BARBER CARLISLE Address:Unknown When:Within 1 Day(s) Comments:Follow-up as scheduled with your doctor tomorrow.Continue all routine medications.Return to the ED if symptoms worsen. [facility] APIM Therapeuticsaluation + Plan note Future Appointments Appointment Date:09/16/2021 01:30:00 PM Scheduled Provider:BARBER CARLISLE Location:[facility] Appointment Type:[facility] APIM Therapeuticsaluation + Plan note Future Appointments Appointment Date:03/22/2022 02:00:00 PM Scheduled Provider:BARBER CARLISLE Location:[facility]ua ARCHER Appointment Type:[facility] APIM Therapeuticsaluation + Plan note Future Appointments Appointment Date:07/27/2022 09:30:00 AM Scheduled Provider: Location:[facility] Appointment Type:NS Post Op Future Scheduled Tests Laboratory* A1C Hemoglobin 01/06/22 * Lipid Profile 01/06/22 * Complete Metabolic Panel 01/06/22 [facility] evaluation + Plan note Future Appointments Appointment Date:08/12/2022 08:30:00 AM Scheduled Provider: Location:[facility] Appointment Type:NS Post Op Future Scheduled Tests Laboratory* A1C Hemoglobin 01/06/22 * Lipid Profile 01/06/22 * Complete Metabolic Panel 01/06/22 Radiology* XR Spine Cervical AP/LAT 07/27/22 [facility] evaluation + Plan note Future Appointments Appointment Date:09/09/2022 10:00:00 AM Scheduled Provider: Location:[facility] Appointment Type:NS Post Op Future Scheduled Tests Laboratory* A1C Hemoglobin 01/06/22 * Lipid Profile 01/06/22 * Complete Metabolic Panel 01/06/22 [facility] Evaluation + Plan note Future Appointments Appointment Date:10/05/2022 01:30:00 PM Scheduled Provider:TRACE MATTHEWS MD Location:[facility] Appointment Type:NS Post Op Future Scheduled Tests Laboratory* A1C Hemoglobin 01/06/22 * Lipid Profile 01/06/22 * Complete Metabolic Panel 01/06/22 Radiology* XR Spine Thoracic 2 Views 09/09/22 * XR Spine Cervical AP/LAT/Flex/Ext 09/09/22 [facility] Evaluation + Plan note Future Appointments Appointment Date:10/26/2022 03:00:00 PM Scheduled Provider: Location:[facility] Appointment Type:CT Spine Cervical w/o Contrast Appointment Date:11/04/2022 02:15:00 PM Scheduled Provider:TRACE MATTHEWS MD Location:[facility] Appointment Type:Telephone Future Scheduled Tests Laboratory* A1C Hemoglobin 01/06/22 * Lipid Profile 01/06/22 * Complete Metabolic Panel 01/06/22 Radiology* CT Spine Cervical w/o Contrast 10/26/22 [facility] Evaluation + Plan note Future Appointments Appointment Date:11/04/2022 02:15:00 PM Scheduled Provider:TRACE MATTHEWS MD Location:[facility] Appointment Type:Telephone Future Scheduled Tests Laboratory* A1C Hemoglobin 01/06/22 * Lipid Profile 01/06/22 * Complete Metabolic Panel 01/06/22 [facility] Evaluation + Plan note Future Appointments Appointment Date:08/19/2023 02:30:00 PM Scheduled Provider: Location:[facility] Appointment Type:MRI Pancreas Future Scheduled Tests Radiology* MRI Pancreas 08/19/23 [facility] evaluation noteNo assessment information available [facility] Work Phone: evaluation note* Diagnosis Onset Date Resolution Status Iron deficiency anemia acute Vitamin B12 deficiency acute Thrombocytopenia chronic [facility] Work Phone: evaluation note* Diagnosis Onset Date Resolution Status Hyperglycemia acute Metabolic encephalopathy acu te Acute on chronic respiratory failure with hypoxia and hypercapnia chronic COPD (chronic obstructive pulmonary disease) chronic [facility] Work Phone: Evaluation note* Diagnosis Onset Date Resolution Status Anemia acute Cardiomyopathy acute Congestive heart failure (CHF) acute Hyperglycemia acute Lower extremity edema acute Lung nodules acute Metabolic encephalopathy acu te On mechanically assisted ventilation acute Pneumonia acute Respiratory disorder with ventilator dependence acute Acute on chronic respiratory failure with hypoxia and hypercapnia chronic COPD (chronic obstructive pulmonary disease) [facility] Work Phone: Evaluation note* Diagnosis Onset Date Resolution Status Iron deficiency anemia chron ic Thrombocytopenia chronic Iron deficiency anemia chron ic Thrombocytopenia chronic Anemia acute Congestive heart failure (CHF) acute COPD (chronic obstructive pulmonary disease) chronic Lung nodules chronic Metabolic encephalopathy res olved Pneumonia resolved Breast nodule acute Neck mass acute Iron deficiency anemia chron ic Lung nodules chronic Thrombocytopenia [facility] Work Phone: Evaluation note* Diagnosis Onset Date Resolution Status Iron deficiency anemia chron ic Thrombocytopenia chronic Anemia acute Congestive heart failure (CHF) acute COPD (chronic obstructive pulmonary disease) chronic Lung nodules chronic Metabolic encephalopathy res olved Pneumonia resolved Breast nodule acute Neck mass acute Iron deficiency anemia chron ic Lung nodules chronic Thrombocytopenia [facility] Work Phone: Evaluation note* Diagnosis Onset [...] nodules chronic Thrombocytopenia chronic Breast nodule acute [facility] Work Phone: Evaluation note* Diagnosis Onset Date Resolution Status Breast nodule acute Neck mass acute Iron deficiency anemia chron ic Lung nodules chronic Thrombocytopenia chronic Breast nodule acute Breast nodule acute Neck mass acute Iron deficiency anemia chron ic Lung nodules chronic Thrombocytopenia [facility] Work Phone: Evaluation note* Diagnosis Onset Date Resolution Status Breast nodule acute Neck mass acute Iron deficiency anemia chron ic Lung nodules chronic Thrombocytopenia [facility] Work Phone: Evaluation note* Diagnosis Onset Date Resolution Status Hematuria acute Iron deficiency anemia chron ic Lung nodules chronic Thrombocytopenia [facility] Work Phone: Evaluation note* Diagnosis Colovaginal fistula- Primary Colovaginal fistula Acquired thrombocytopenia (CMS/HCC) Secondary thrombocytopenia Encounter for preprocedural cardiovascular examination Dilated cardiomyopathy (CMS/HCC) Other primary cardiomyopathies Dilated cardiomyopathy (CMS/HCC) Other primary cardiomyopathies documented in this encounter [facility] Work Phone: Evaluation note* Diagnosis Diverticulitis- Primary Diverticulitis of colon (without mention of hemorrhage) Colovaginal fistula- Primary Diverticulitis Diverticulitis of colon (without mention of hemorrhage) documented in this encounter [facility] Work Phone: Evaluation note* Diagnosis Preop cardiovascular exam- Primary Pre-operative cardiovascular examination Chronic systolic heart failure (CMS/HCC) Chronic systolic heart failure documented in this encounter [facility] Work Phone: Evaluation note* Diagnosis Encounter for preadmission testing documented in this encounter [facility] Work Phone: Evaluation note* Diagnosis Encounter for preadmission testing documented in this encounter [facility] Work Phone: Hospital course Narrative No data available for this section [facility] Hospital Discharge instructions No data available for this section [facility] Hospital Discharge instructions Additional Instructions Your CT [...] have a progression or worsening of your symptoms.[facility] Work Phone: Progress note No data available for this section [facility] Summary Purpose Family History No Family History Records Found Sister Name Dates Details Family history of malignant neoplasm of breast(V16.3, Z80.3) Status:Active Relationship Condition Age at Onset Recorded Date/T obinna sister Malignant neoplasm of breast Unknown grandmother Diabetes mellitus Unknown Advance Directives No Advanced Directives Records Found Advance Directive Response Recorded Date/ Time Living Will No November 24 9:00am Power of Form Press Operator No November 24, 2021 9:00am Advance Directive Response Recorded Date/ Time Living Will No November 24 8:00am Power of Form Press Operator No November 24, 2021 8:00am Advance Directive Response Recorded Date/ Time Living Will No April 19, 2023 4 :46pm Power of Form Press Operator No April 19, 2023 4:46pm Advance Directive Response Recorded Date/ Time Living Will No July 14 4:04pm Power of Form Press Operator No July 14 4:04pm Advance Directive Response Recorded Date/ Time Living Will No August 09, 2023 11:01pm Power of Form Press Operator No July 11:01pm Advance Directive Response Recorded Date/ Time Living Will No September 14 10:49pm Power of Form Press Operator No September 14, 2023 10:49pm Latest Code [...] Will No September 14 9:49pm Power of Form Press Operator No September 14, 2023 9:49pm Latest Code [...] Complaint and Reason for Visit Chief Complaint DETENTION LABWORK DETENTION LAB WORK Chief Complaint DETENTION LABWORK DETENTION LAB WORK DETENTION LABWORK Chief Complaint DETENTION LABWORK DETENTION LAB WORK DETENTION LAB WORK DETENTION LABWORK DETENTION LABWORK Chief Complaint DETENTION LABWORK DETENTION LAB WORK DETENTION LAB WORK DETENTION LABWORK LABWORK DETENTION LABWORK 2MO -LABS- NEW PT - PANCYTOPENIA [...] PT - PANCYTOPENIA 2MO -LABS- 2MO -LABS- DETENTION LABWORK ACUTE ON CHRONIC HYPOXIC AND HYPERCAPNIC [...] NEW PT - PANCYTOPENI A 2MO -LABS- DETENTION LABWORK ACUTE ON CHRONIC HYPOXIC AND HYPERCAPNIC [...] HYPERCAPNIC ACUTE ON CHRONIC HYPOXIC AND HYPERCAPNIC DETENTION LABWORK 3MO LABS 2MO -LABS- Reason for Visit Iron deficiency anem ia Thrombocytopenia Iron deficiency anemia Thrombocytopenia Anemia Congestive heart failure (CHF) COPD (chronic obstructive pulmonary disease) Lung nodules Metabolic encephalopathy Pneumonia Breast nodule Neck mass Iron deficiency anemia Lung nodules Thrombocytopenia Chief Complaint 2MO -LABS- DETENTION LABWORK ACUTE ON CHRONIC HYPOXIC AND HYPERCAPNIC [...] HYPERCAPNIC ACUTE ON CHRONIC HYPOXIC AND HYPERCAPNIC DETENTION LABWORK DETENTION LABWORK DETENTION LABWORK 3MO LABS 2MO -LABS- NODULE ON NECK, ? CANCER Reason for Visit Iron deficiency anem ia Thrombocytopenia Anemia Congestive heart failure (CHF) COPD (chronic obstructive pulmonary disease) Lung nodules Metabolic encephalopathy Pneumonia Breast nodule Neck mass Iron deficiency anemia Lung nodules Thrombocytopenia Chief Complaint 2MO -LABS- DETENTION LABWORK ACUTE ON CHRONIC HYPOXIC AND HYPERCAPNIC [...] HYPERCAPNIC ACUTE ON CHRONIC HYPOXIC AND HYPERCAPNIC DETENTION LABWORK DETENTION LABWORK DETENTION LABWORK 3MO LABS 2MO -LABS- NODULE ON [...] Thrombocytopenia Breast nodule Chief Complaint 2MO -LABS- DETENTION LABWORK ACUTE ON CHRONIC HYPOXIC AND HYPERCAPNIC [...] HYPERCAPNIC ACUTE ON CHRONIC HYPOXIC AND HYPERCAPNIC DETENTION LABWORK DETENTION LABWORK DETENTION LABWORK 3MO LABS 2MO -LABS- NODULE ON [...] Thrombocytopenia Breast nodule Chief Complaint 2MO -LABS- DETENTION LABWORK ACUTE ON CHRONIC HYPOXIC AND HYPERCAPNIC [...] HYPERCAPNIC ACUTE ON CHRONIC HYPOXIC AND HYPERCAPNIC DETENTION LABWORK DETENTION LABWORK DETENTION LABWORK 3MO LABS 2MO -LABS- NODULE ON NECK, ? CANCER 2WKS NO LABS REVIEW MAMMO/CT DETENTION LABWORK L BREAST NODULE L BREAST NODULE [...] CA NCER 2WKS NO LABS REVIEW MAMMO/CT DETENTION LABWORK L BREAST NODULE L BREAST NODULE LABWORK abd pain 2MO -LABS- 6WKS LABS REVIEW BIOPSY/PATH DETENTION LAB WORK Reason for Visit Breast nodule Neck mass Iron deficiency anemia Lung nodules Thrombocytopenia Breast nodule Breast nodule Neck mass Iron deficiency anemia Lung nodules Thrombocytopenia Chief Complaint NODULE ON NECK, ? CA NCER 2WKS NO LABS REVIEW MAMMO/CT DETENTION LABWORK L BREAST NODULE L BREAST NODULE LABWORK abd pain 2MO -LABS- 6WKS LABS REVIEW BIOPSY/PATH DETENTION LAB WORK DETENTION LAB WORK ABD PAIN Reason for Visit Breast nodule Neck mass Iron deficiency anemia Lung nodules Thrombocytopenia Breast nodule Breast nodule Neck mass Iron deficiency anemia Lung nodules Thrombocytopenia Chief Complaint LABWORK abd pain 2MO -LABS- 6WKS LABS REVIEW BIOPSY/PATH DETENTION LAB WORK DETENTION LAB WORK ABD PAIN Reason for Visit Breast nodule Neck mass Iron deficiency anemia Lung nodules Thrombocytopenia Chief Complaint LABWORK abd pain 2MO -LABS- 6WKS LABS REVIEW BIOPSY/PATH DETENTION LAB WORK DETENTION LAB WORK ABD PAIN dizziness Reason for Visit Breast nodule Neck mass Iron deficiency anemia Lung nodules Thrombocytopenia Chief Complaint 2MO -LABS- 6WKS LABS REVIEW BIOPSY/PATH DETENTION LAB WORK DETENTION LAB WORK ABD PAIN dizziness DETENTION LABWORK Reason for Visit Breast nodule Neck mass Iron deficiency anemia Lung nodules Thrombocytopenia Chief Complaint DETENTION LAB WOR K DETENTION LAB WORK ABD PAIN dizziness DETENTION LABWORK LABWORK Chief Complaint DETENTION LAB WOR K DETENTION LAB WORK ABD PAIN dizziness DETENTION LABWORK LABWORK DISCUSS OPTIONS-NO LABS 2MO -LABS- abd pain Reason for Visit Hematuria Iron deficiency anemia Lung nodules Thrombocytopenia Chief Complaint DETENTION LAB WOR K DETENTION LAB WORK ABD PAIN dizziness DETENTION LABWORK LABWORK DISCUSS OPTIONS-NO LABS 2MO -LABS- DETENTION LABWORK abd pain abd pain abd pain Reason for Visit Hematuria Iron deficiency anemia Lung nodules Thrombocytopenia Chief Complaint DETENTION LAB WOR K ABD PAIN dizziness DETENTION LABWORK LABWORK DISCUSS OPTIONS-NO LABS 2MO -LABS- DETENTION LABWORK abd pain abd pain abd pain LEFT BREAST FOLLOW UP FIBROADENOMA Reason for Visit Hematuria Iron deficiency anemia Lung nodules Thrombocytopenia Reason for Referral Specialty Diagnoses / Procedures Referred By Contac t Referred To Contact Diagnoses Encounter for preadmission testing Procedures [place] 12 [place] [address] [place] [address] Referral ID Status Reason Start Date Expiration Date V isits Requested Visits Authorized [id number] Pending Review 10/28/2023 10/27/2024 1 1 Specialty Diagnoses / Procedures Referred By Contac t Referred To Contact Diagnoses Colovaginal fistula Nancy Treviño, FRAME POLISHER-TOOL AND EQUIPMENT RENTAL CLERK [address] [facility] Department [place] [address] Referral ID Status Reason Start Date Expiration Date V isits Requested Visits Authorized [id number] Pending Review 09/28/2023 09/27/2024 1 1 Additional Source Comments INFORMATION SOURCE (unrecogn ized section and content) DATE CREATED AUTHOR 05/09/2018 [employer] DATE CREATED AUTHOR AUTHOR'S ORGANIZ ATION 07/14/2020 [employer] DATE CREATED AUTHOR AUTHOR'S ORGANIZ ATION 12/01/2021 [facility] DATE CREATED AUTHOR AUTHOR'S ORGANIZ ATION 11/06/2022 [employer] [facility] DATE CREATED AUTHOR AUTHOR'S ORGANIZ ATION 09/16/2023 [facility] ([place]) DATE CREATED AUTHOR AUTHOR'S ORGANIZ ATION 10/19/2023 [facility] DATE CREATED AUTHOR AUTHOR'S ORGANIZ ATION 11/13/2023 [facility] DATE CREATED AUTHOR AUTHOR'S ORGANIZ ATION 07/25/2024 [facility] DATE CREATED AUTHOR AUTHOR'S ORGANIZ ATION 09/26/2025 [facility] Care Team (unrecognized sect ion and content) Care Team Personnel Name: BARBER CARLISLE Position: P4 Advanced Practice Nurse Member Role: Primary Care Physician Address: Address: [address] [facility] [address] [facility] [place] [address] [place] Name: MARIANA RAMOS MD Position: ED Physician Member Role: Attending Physician Address: Address: [address] [place] [address] Care Team Related Persons Name: JOCY RUIZ Address: Home [address] [place], [place] [id number] [place] Name: JOCY RUIZ Address: Home [address] [place] [id number] [place] Name: JOCY RUIZ Address: Home [address] [place] [phone] [place] Name: JOCY RUIZ Address: Home [address] [place] [phone] [place] Name: JOCY RUIZ Address: Home [address] [place] [phone] [place] Name: JOCY RUIZ Address: Home [address] [facility] [place] [phone] [place] Name: JOCY RUIZ Address: Home [address] [place] [phone] [place] Name: JOCY RAMIREZ Care Team Personnel Name: BARBER CARLISLE Position: P4 Advanced Practice Nurse Member Role: Primary Care Physician Address: Address: [address] [facility] [place] [address]- Care Team Related Persons Name: JOCY RUIZ Address: Home [address] [place] [phone] [place] Name: JOCY RUIZ Address: Home [address] [place] [id number] [place] Name: JOCY RUIZ Address: Home [address] [place], [place] [id number] [place] Name: JOCY RUIZ Address: Home [address] [place], [place] [id number] [place] Name: JOCY RUIZ Address: Home [address] [place], [place] [id number] [place] Name: JOCY RUIZ Address: Home [address] [place], [place] [id number] [place] Name: JOCY RUIZ Address: Home [address] [place], [place] [id number] [place] Name: JOCY RAMIREZ Care Team Personnel Name: BARBER CARLISLE Position: P4 Advanced Practice Nurse Med Service: Active Provider Member Role: Primary Care Physician Address: Address: [address] [place], [place] [address] Care Team Related Persons Name: JOCY RUIZ Address: Home [address] [place] [phone] [place] Name: JOCY RUIZ Address: Home [address] [place], [place] [id number] [place] Name: JOCY RUIZ Address: Home [address] [place] [phone] [place] Name: JOCY RUIZ Address: Home [address] [place], [place] [id number] [place] Name: JOCY RUIZ Address: Home [address] [place] [phone] [place] Name: JOCY RUIZ Address: Home [address] [place] [phone] [place] Name: JOCY RUIZ Address: Home [address] [place] [phone] [place] Name: JOCY RAMIREZ Care Team Personnel Name: BARBER CARLISLE Position: P4 Advanced Practice Nurse Med Service: Active Provider Member Role: Primary Care Physician Address: Address: [address] [place], [place] [address] Care Team Related Persons Name: JOCY RUIZ Address: Home [address] [place] [phone] [place] Name: JOCY RUIZ Address: Home [address] [place] [phone] [place] Name: JOCY RUIZ Address: Home [address] [place] [phone] [place] Name: JOCY URIZ Address: Home [address] [place], [place] [phone] [place] Name: JOCY RUIZ Address: Home [address] [place] [id number] [place] Name: JOCY RUIZ Address: Home [address] [place], [place] [phone] [place] Name: JOCY RUIZ Address: Home [address] [place] [id number] [place] Name: JOCY RAMIREZ Care Team Personnel Name: BARBER CARLISLE Position: P4 Advanced Practice Nurse Med Service: Active Provider Member Role: Primary Care Physician Address: Address: [address] [place] [place] [id number] Care Team Related Persons Name: JOCY RUIZ Address: Home [address] [place] [phone] [place] Name: JOCY RUIZ Address: Home [address] [place] [phone] [place] Name: JOCY RUIZ Address: Home [address] [place] [phone] [place] Name: JOCY RUIZ Address: Home [address] [place] [phone] [place] Name: JOCY RUIZ Address: Home [address] [place] [phone] [place] Name: JOCY RUIZ Address: Home [address] [place] [id number] [place] Name: JOCY RUIZ Address: Home [address] [place] [phone] [place] Name: JOCY RAMIREZ Care Team Personnel Name: BARBER CARLISLE Position: P4 Advanced Practice Nurse Member Role: Primary Care Physician Address: Address: [address] [place], [place] [address] Care Team Related Persons Name: RUIZ, JOCY A Address: Home [address] [place] [phone] [place] Name: JOCY RUIZ Address: Home [address] [place] [phone] [place] Name: JOCY RUIZ Address: Home [address] [place], [place] [phone] [place] Name: JOCY RUIZ Address: Home [address] [place], [place] [phone] [place] Name: JOCY RUIZ Address: Home [address] [place], [place] [phone] [place] Name: JOCY RUIZ Address: Home [address] [place], [place] [phone] [place] Name: JOCY RUIZ Address: Home [address] [place], [place] [phone] [place] Name: JOCY RAMIREZ Care Team Personnel Name: BARBER CARLISLE Position: P4 Advanced Practice Nurse Member Role: Primary Care Physician Address: Address: [address] Care Team Related Persons Name: JOCY RUIZ Address: Home [address] [place] [phone] [place] Name: JOCY RUIZ Address: Home [address] [place], [place] [phone] [place] Name: JOCY RUIZ Address: Home [address] [place] [phone] [place] Name: JOCY RUIZ Address: Home [address] [place] [id number] [place] Name: JOCY RUIZ Address: Home [address] [place] [phone] [place] Name: JOCY RUIZ Address: Home [address] [place], [place] [id number] [place] Name: JOCY RUIZ Address: Home [address] [place] [phone] [place] Name: JOCY RAMIREZ Care Team Personnel Name: BARBER CARLISLE Position: P4 Advanced Practice Nurse Member Role: Primary Care Physician Address: Address: [address] Care Team Related Persons Name: JOCY RUIZ Address: Home [address] [place] [phone] [place] Name: JOCY RUIZ Address: Home [address] [place] [phone] [place] Name: JOCY RUIZ Address: Home [address] [place] [phone] [place] Name: JOCY RUIZ Address: Home [address] [place] [phone] [place] Name: JOCY RUIZ Address: Home [address] [place] [phone] [place] Name: JOCY RUIZ Address: Home [address] [place] [phone] [place] Name: JOCY RUIZ Address: Home [address] [place] [phone] [place] Name: JOCY RAMIREZ Care Team Personnel Name: BARBER CARLISLE APRN-SILVINO Position: P4 Advanced Practice Nurse Member Role: Primary Care Physician Address: Address: [address] [place], [place] [address] Care Team Related Persons Name: JOCY RUIZ Address: Home [address] [place] [phone] [place] Name: JOCY RUIZ Address: Home [address] [place] [phone] [place] Name: JOCY RUIZ Address: Home [address] [place] [phone] [place] Name: JOCY RUIZ Address: Home [address] [place] [id number] [place] Name: JOCY RUIZ Address: Home [address] [place] [phone] [place] Name: JOCY RUIZ Address: Home [address] [place] [phone] [place] Name: JOCY RUIZ Address: Home [address] [place] [phone] [place] Name: JOCY RAMIREZ Goals (unrecognized section and content) Goals may be documented in a n alternate section Care Teams (unrecognized sec tion and content) Team Status: Active Member Role Status Dates Barber Carlisle MODELING INSTRUCTOR, MODELING INSTRUCTOR-C Primary Care Provider Active Team Status: Inactive Member Role Status Dates Barber Orestes MODELING INSTRUCTOR, MODELING INSTRUCTOR-C Primary Care Provider, Referri ng Provider Active Dr. Delfin Jeffries MD Attending Provider Active Team Status: Inactive Member Role Status Dates Barber Orestes MODELING INSTRUCTOR, MODELING INSTRUCTOR-C Primary Care Provider Active Stef ELMORE Attending Provider Active Team Status: Active Member Role Status Dates Barber Orestes MODELING INSTRUCTOR, MODELING INSTRUCTOR-C Primary Care Provider Active Dr. Delfin Jeffries MD Attending Provider, Referring Pro vider Active Team Status: Active Member Role Status Dates Barber Orestes MODELING INSTRUCTOR, MODELING INSTRUCTOR-C Primary Care Provider Active Jonathan ELMORE MD Attending Provider Active Team Status: Active Member Role Status Dates Barber Carlisle MODELING INSTRUCTOR, MODELING INSTRUCTOR-C Primary Care Provider Active Dr. Ellis Tsai MD Emergency Provider Active Dr. Rebecca Resendiz DO Admit Provider, Attending Provide r Active Team Status: Active Member Role Status Dates Barber Carlisle MODELING INSTRUCTOR, MODELING INSTRUCTOR-C Primary Care Provider Active Dr. Ellis Tsai MD Emergency Provider Active Dr. Rebecca Resendiz DO Admit Provider, Att ending Provider, Other Provider Active Dr. Serge Banks MD Other Provider Active Dr. Ajit Mcgill , Other Provider Active Dr. Martín Monique MD Other Provider Active Dr. Krzysztof Pennington MD Other Provider Active Viji Richey MODELING INSTRUCTOR, MODELING INSTRUCTOR-C Other Provider Active Team Status: Active Member Role Status Dates Barber Orestes MODELING INSTRUCTOR, MODELING INSTRUCTOR-C Primary Care Provider Active Dr. Ellis Tsai MD Emergency Provider Active Dr. Rebecca Resendiz DO Admit Provider, Other Provider Ac tive Dr. Serge Banks MD Other Provider Active Dr. Ajit Mcgill , Other Provider Active Dr. Martín Monique MD Attending Provider, Other Pro vider Active Dr. Krzysztof Pennington MD Other Provider Active Viji Richey MODELING INSTRUCTOR, MODELING INSTRUCTOR-C Other Provider Active Dr. Hernando Padron MD Other Provider Active Dr. Thomas Ahumada MD Other Provider Active Team Status: Active Member Role Status Dates Barber Carlisle MODELING INSTRUCTOR, MODELING INSTRUCTOR-C Primary Care Provider Active Dr. Miroslava Gonzalez MD Attending Provider Active Team Status: Active Member Role Status Dates Barber Carlisle MODELING INSTRUCTOR, MODELING INSTRUCTOR-C Primary Care Provider Active Dr. Ellis Tsai MD Emergency Provider Active Dr. Rebecca Martín , DO Admit Provider, Other Provider Ac tive Dr. Serge Banks MD Other Provider Active Dr. Ajit Mcgill , DO Other Provider Active Dr. Martín Monique MD Other Provider Active Dr. Krzysztof Pennington MD Other Provider Active Viji Richey NP, MODELING INSTRUCTOR-C Other Provider Active Dr. Hernando Padron MD Attending Provider, Other Provid er Active Dr. Thomas Ahumada MD Other Provider Active Team Status: Active Member Role Status Meche Carlisle NP, MODELING INSTRUCTOR-C Primary Care Provider Active Dr. Ellis Tsai MD Emergency Provider Active Dr. Rebecca Resendiz , DO Admit Provider, Other Provider Ac tive Dr. Serge Banks MD Other Provider Active Dr. Ajit Mcgill , Other Provider Active Dr. Martín Monique MD Other Provider Active Dr. Krzysztof Pennington MD Other Provider Active Viji Richey NP, MODELING INSTRUCTOR-C Other Provider Active Dr. Hernando Padron MD Other Provider Active Dr. Thomas Ahumada MD Other Provider Active Dr. Miroslava Gonzaelz MD Attending Provider Active Team Status: Active Member Role Status Meche Carlisle MODELING INSTRUCTOR, MODELING INSTRUCTOR-C Primary Care Provider Active Dr. Moise Austin MD Attending Provider Active Team Status: Active Member Role Status Meche Carlisle NP, MODELING INSTRUCTOR-C Primary Care Provider Active Dr. Ellis Tsai MD Emergency Provider Active Dr. Rebecca Resendiz , DO Admit Provider, Other Provider Ac tive Dr. Serge Banks MD Other Provider Active Dr. Ajit Mcgill , Other Provider Active Dr. Martín Monique MD Other Provider Active Dr. Krzysztof Pennington MD Other Provider Active Viji Richey NP, MODELING INSTRUCTOR-C Other Provider Active Dr. Hernando Padron MD Other Provider Active Dr. Thomas Ahumada MD Other Provider Active Dr. Pratima Jaime MD Other Provider Active Dr. Miroslava Gonzalez MD Attending Provider Active Team Status: Active Member Role Status Meche Carlisle NP, MODELING INSTRUCTOR-C Primary Care Provider Active Dr. Ellis Tsai MD Emergency Provider Active Dr. Rebecca Resendiz , DO Admit Provider, Other Provider Ac tive Dr. Serge Banks MD Attending Provider, Other Provid er Active Dr. Ajit Mcgill , DO Other Provider Active Dr. Martín Monique MD Other Provider Active Dr. Krzysztof Pennington MD Other Provider Active Viji Richey MODELING INSTRUCTOR, MODELING INSTRUCTOR-C Other Provider Active Dr. Hernando Padron MD Other Provider Active Dr. Thomas Ahumada MD Other Provider Active Dr. Pratima Jaime MD Other Provider Active Team Status: Active Member Role Status Meche Carlisle MODELING INSTRUCTOR, MODELING INSTRUCTOR-C Primary Care Provider Active Dr. Ellis Tsai MD Emergency Provider Active Dr. Rebecca Resendiz , Admit Provider, Other Provider Ac tive Dr. Serge Banks MD Other Provider Active Dr. Ajit Mcgill DO Other Provider Active Dr. Martín Monique MD Other Provider Active Dr. Krzysztof Pennington MD Other Provider Active Viji Richey MODELING INSTRUCTOR, MODELING INSTRUCTOR-C Other Provider Active Dr. Hernando Padron MD Other Provider Active Dr. Thomas Ahumada MD Other Provider Active Dr. Pratima Jaime MD Attending Provider, Other Provid er Active Team Status: Inactive Member Role Status Meche Carlisle MODELING INSTRUCTOR, MODELING INSTRUCTOR-C Primary Care Provider Active Jonathanfausto ELMORE MD Attending Provider Active Team Status: Inactive Member Role Status Meche Carlisle MODELING INSTRUCTOR, MODELING INSTRUCTOR-C Primary Care Provider Active Dr. Ellis Tsai MD Emergency Provider Active Dr. Rebecca Resendiz , Admit Provider, Other Provider Ac tive Dr. Serge Banks MD Other Provider Active Dr. Ajit Mcgill , Other Provider Active Dr. Martín Monique MD Other Provider Active Dr. Krzysztof Pennington MD Other Provider Active Viji Richey NP, MODELING INSTRUCTOR-C Other Provider Active Dr. Hernando Padron MD Other Provider Active Dr. Thomas Ahumada MD Other Provider Active Dr. Pratima Jaime MD Attending Provider Active Team Status: Active Member Role Status Meche Carlisle MODELING INSTRUCTOR, MODELING INSTRUCTOR-C Primary Care Provider Active Dr. Moise Austin MD Attending Provider Active Dr. Rebecca Resendiz , Referring Provider Active Team Status: Active Member Role Status Meche Carlisle MODELING INSTRUCTOR, MODELING INSTRUCTOR-C Primary Care Provider Active Dr. Ellis Tsai MD Emergency Provider Active Dr. Rebecca Resendiz , Admit Provider, Other Provider Ac tive Dr. Serge Banks MD Other Provider Active Dr. Ajit Mcgill , Other Provider Active Dr. Martín Monique MD Attending Provider, Other Pro vider Active Dr. Krzysztof Pennington MD Other Provider Active Viji Richey MODELING INSTRUCTOR, MODELING INSTRUCTOR-C Other Provider Active Dr. Hernando Padron MD Other Provider Active Dr. Thomas Ahumada MD Other Provider Active Dr. Pratima Jaime MD Referring Provider Active Team Status: Active Member Role Status Meche Carlisle MODELING INSTRUCTOR, MODELING INSTRUCTOR-C Primary Care Provider Active Dr. Ellis Tsai MD Emergency Provider Active Dr. Rebecca Resendiz , Admit Provider, Other Provider Ac tive Dr. Serge Banks MD Attending Provider, Other Provid er Active Dr. Ajit Mcgill DO Other Provider Active Dr. Martín Monique MD Other Provider Active Dr. Krzysztof Pennington MD Other Provider Active Viji Richey MODELING INSTRUCTOR, MODELING INSTRUCTOR-C Other Provider Active Dr. Hernando Padron MD Other Provider Active Dr. Thomas Ahumada MD Other Provider Active Dr. Pratima Jaime MD Referring Provider, Other Provid er Active Team Status: Inactive Member Role Status Meche Carlisle MODELING INSTRUCTOR, MODELING INSTRUCTOR-C Primary Care Provider Active Dr. Delfin Jeffries MD Other Provider Active TORRIE COLLAZO Attending Provider, Referring Provider Active Team Status: Inactive Member Role Status Meche Carlisle MODELING INSTRUCTOR, MODELING INSTRUCTOR-C Primary Care Provider, Referri ng Provider Active Dr. Sharmila Jackson MD Attending Provider Active Team Status: Inactive Member Role Status Meche Carlisle MODELING INSTRUCTOR, MODELING INSTRUCTOR-C Primary Care Provider Active Dr. Sharmila Jackson [...] Team Status: Inactive Member Role Status Meche Jeffries MD Attending Provider Active Jonathan ELMORE MD Primary Care Provider, Referring Provider Active Team Status: Inactive Member Role Status Meche ELMORE MD Primary Care Provid er, Attending [...] Way , DO Attending Provider, Emergency P andres Active [...] Dr. Alecia Navarrete MD Attending Provider Active O And M Supervisor Relationship Specialty Start Date End Date Barber Carlisle, FRAME POLISHER-TOOL AND EQUIPMENT RENTAL CLERK [address] [place] [id number] PCP - General 07/04/20 Team Status: Active Member Role Status Dates Dr. Jonathan Dillard Sr. , DO Primary Care Provider Active Dr. Calvin Hester , Emergency Provider Active Dr. Lucia Jurado MD [...] Sr. , DO Primary Care Provider Active O And M Supervisor Relationship Specialty Start Date End Date Barber Carlisle FREDY Morales PCP - General 07/04/20 O And M Supervisor Relationship Specialty Start Date End Date Barber Carl[place] FREDY Morales [address] [place] [address] PCP - General Family Medicine 10/27/23 O And M Supervisor Relationship Specialty Start Date End Date Barber [place] FREDY Morales [address] [place] [address] PCP - General Family Medicine 10/27/23 O And M Supervisor Relationship Specialty Start Date End Date Orestes Barber FREDY Morales [address] [place] [address] PCP - General Family Medicine 10/27/23 Reason for Visit (unrecogniz ed section and content) Specialty Diagnoses / Procedures Referred By Contac t Referred To Contact Diagnoses Colovaginal fistula Intestinal Abscess Procedures [place] [id number] [address] [facility] Department [place] [address] [facility] [place] [address] [address] [place] [address] Referral ID Status Reason Start Date Expiration Date Visits Re quested Visits Authorized [id number] 1 Specialty Diagnoses / Procedures Referred By Contac t Referred To Contact Diagnoses Encounter for preadmission testing Procedures [place] 12 [place] [address] [place] [address] Referral ID Status Reason Start Date Expiration Date V isits Requested Visits Authorized [id number] Pending Review 10/28/2023 10/27/2024 1 1 Scheduled [...] Complicated 0847 (Given - Provider: Aldo Blood RN)2099 (Due) cefTRIAXone (Rocephin) IVPB 1 g (CANCELED) [...] venous thrombosis 2012 (Given - Provider: Rhonda Gordon, SHAMA) 1999 (Not Given - Provider: Aldo Blood [...] mg (COMPLETED) 5 mg, intravenous, Once, On 09/26/23 at 0915, For 1 [...] PRN, flatulence, Starting on 09/23/23 at 0744 Linked Groups Order Group 1: [...] BE BASED ON THE PRIMARY CLINICAL RECORDS. [employer] provides no warranty or guarantee of the accuracy or completeness of information in this document.
[2025-10-02 09:36] LABS: Hematocrit 25.8 % (37-47); Hemoglobin 7.4 g/dL (12.0-15.0)
== END ==
LOC: OLS.ACH 05:00
PROVIDERS: PCP Internal Medicine; Visit Provider Internal Medicine
DX: D50.9 Iron deficiency anemia, unspecified (principal)
CPT/HCPCS: 36415; 85014; 85018

== ENCOUNTER → 2025-10-07 05:00 | Outpatient (REF) | payer MEDICARE, MEDICAID, SELFPAY ==
--- OUTSIDE RECORDS SUMMARY | 2025-10-07 03:57 | XMS RPT_ITS | CCD ---
Author Organization [facility] Care Team Providers Care Web Application Developer Name Role Phone Ellis Martines Unavailable Unavailable PROVIDER, UNKNOWN Unavailable Unavailable Michelle Aguilar Unavailable Unavailab Kandi Zacarias Unavailable Unavailable Barber Carlisle Unavailable Unavailable Pranav Bonds Unavailable Unavailable Update Needed Unavailable Unavailable ORESTES MATCHER OFFBEARER-SERVICE SHOP FOREMANBARBER Primary Care Physician ORESTES MATCHER OFFBEARER-SERVICE SHOP FOREMAN, BARBER Primary Care Physician ORESTES MATCHER OFFBEARER-SERVICE SHOP FOREMAN, BARBER Primary Care Physician Orestes PRESSURIZER, PRESSURIZER-C Barber Primary Care Provider Orestes PRESSURIZER, PRESSURIZER-C Barber Referring Provider 1([facility] )[phone] Dr. Delfin Jeffries Attending Provider Orestes PRESSURIZER, PRESSURIZER-C Barber Primary Care Provider Orestes PRESSURIZER, PRESSURIZER-C Barber Referring Provider 1([facility] )[phone] Dr. Delfin Jeffries Attending Provider Dr. Ellis Tsai Emergency Provider Dr. Rebecca Resendiz Admit Provider Dr. Rebecca Resendiz Attending Provider [phone] Rebecca Resendiz Other Provider Dr. Serge Banks Other Provider Dr. Ajit Mcgill Other Provider Dr. Martín Monique Other Provider 1([facility])[phone] Krzysztof Pennington Other Provider Unavailab rambo Richey PRESSURIZER, PRESSURIZER-C Viji Other Provider Dr. Miroslava Gonzalez Attending Provider Dr. Martín Monique Attending Provider Dr. Hernando Padron Other Provider Unavailable Dr. Thomas Ahumada Other Provider Unavaila Dr. Moise Jo Attending Provider Dr. Hernando Padron Attending Provider Unavailable Dr. Pratima Jaime Attending Provider Dr. Pratima Jaime Other Provider Dr. Serge Banks Attending Provider Dr. Rebecca Resendiz Referring Provider Orestes PRESSURIZER, PRESSURIZER-C Sutton Primary Care Provider Orestes PRESSURIZER, PRESSURIZER-C Barber Referring Provider [phone] Dr. Delfin Jeffries Attending Provider Dr. Pratima Jaime Referring Provider Dr. Sharmila Jackson Attending Provider Orestes PRESSURIZER, PRESSURIZER-C Sutton Primary Care Provider Orestes PRESSURIZER, PRESSURIZER-C Barber Referring Provider [phone] Dr. Delfin Jeffries Attending Provider Gilma ELMORE MD Jonathan Primary Care Provider Unava ilable Gilma ELMORE MD Jonathan Referring Provider Unavaila Dr. Delfin Hutchins Attending Provider Dr. Jonathan Dillard Sr. Primary Care Provider [phone] Dr. Jonathan Dillard Sr. Referring Provider Dr. Delfin Jeffries Attending Provider SOLITARIO STUBBS, DR CAMPOS Attending Unavailabl e LORETHAN MATCHER OFFBEARER-SERVICE SHOP FOREMAN, [facility] Unavail renata JEREZ MD, DR CAMPOS Attending Unavailabl e LORETHAN MATCHER OFFBEARER-SERVICE SHOP FOREMAN, [facility] Unavail renata JEREZ MD, DR CAMPOS Attending Unavailabl e LORETHAN MATCHER OFFBEARER-SERVICE SHOP FOREMAN, BARBER Primary Care Unavail able FLIGHT MATCHER OFFBEARER-SERVICE SHOP FOREMAN, RENETTA Attending Unavail able LORSON MATCHER OFFBEARER-SERVICE SHOP FOREMAN, [facility] Care Unavail able CRISSY STUBBS, DR OSEI PACHECO Attending Unav ailable LORSON MATCHER OFFBEARER-SERVICE SHOP FOREMAN, [facility] Care Unavail able FLIGHT MATCHER OFFBEARER-SERVICE SHOP FOREMAN, RENETTA Attending Unavail able LORSON MATCHER OFFBEARER-SERVICE SHOP FOREMAN, [facility] Care Unavail able BYRON STUBBS, TRACE Sprague Attending Unavailable LORSON MATCHER OFFBEARER-SERVICE SHOP FOREMAN, [facility] Care Unavail able Lorson MATCHER OFFBEARER-SERVICE SHOP FOREMAN, [facility] Primary Care Pr ovider Deperro Sr., Dr. Castillo Primary Care Provider Gilma Sr., Dr. Castillo Referring Provider [phone] [address]. Delfin Jeffries Attending Provider Dr. Calvin Hester Emergency Provider Dr. Lucia Jurado Attending Provider Dr. Calvin Hester Referring Provider Dr. Susy Delarosa Attending Provider VARSHA SOTELO Attending Unavail able ORESTES, [facility] Unavaila ble Lorson MATCHER OFFBEARER-SERVICE SHOP FOREMAN, [facility] Pr ovider Lorson MATCHER OFFBEARER-SERVICE SHOP FOREMAN, [facility] Pr ovider ORESTES [facility] Unavaila ble DELFIN MELARA Admitting Unavailable VARSHA SOTELO Attending Unavail able VARSHA SOTELO Admitting Unavail able VARSHA SOTELO Attending Unavail able ORESTES, [facility] Unavaila ble LORSON, [facility] Unavaila ble LORSON, [facility] Unavaila ble ELIDA VILLAREAL Attending Unavailable LORSON, [facility] Care Unavaila ble LORSON, [facility] Care Unavaila ble RITU HARRELL Referring [...] sources) cyclobenzaprine; Translations: [cyclobenzaprine] Drug Allergy 3 [facility] (20 sources) tiZANidine; Translations: [tizanidine] Drug Allergy 3 [facility] (6 sources) Acetaminophen / oxyCODONE; Translations: [OXYCODONE-ACETAMIN OPHEN] Drug Allergy 6 Palpitations [facility] 3 Repository (1 source) cyclobenzaprine Drug Allergy 5 [facility] Repository (1 source) tiZANidine Drug Allergy 5 [facility] Repository Medications Current Medications Medication Drug Class(es) [...] 19, 2023 12:00am take 2 tablets by ms ut once daily at bedtime acetaminophen (Tylenol) [...] preference, # 1 EA, 0 Refill(s), Pharmacy: [facility] 166, cm, 09/09/20 11:16:00 [...] # 60 cap(s), 11 Refill(s), Pharmacy: [facility] [address], 166, cm, 09/09/20 11:16:00 EDT, Height, [...] diabetes, # 1 EA, 0 Refill(s), Pharmacy: [facility], 165, cm, 01/16/21 13:33:00 EST, Height, 94.9, kg, 09/16/21 13:29:00 EDT, Dosing Weight Start Date: 09/28/21 Status: Ordered Start: 09-23-2021 DME MISCellane ous See Instructions, True Plus Lancets check blood sugar once daily. #1 box for 90 day supply x 0 refills Dx: diabetes, # 1 EA, 3 Refill(s), Pharmacy: [facility], Diabetes, 165, cm, 01/16/21 13:33:00 EST, Height, 94.9, kg, 09/16/21... Start Date: 09/23/21 Status: Ordered Start: 04-30-2021 DME MISCellane ous See Instructions, True Plus Lancets check blood sugar once daily. #1 box for 90 day supply x 0 refills Dx: diabetes, # 1 EA, 0 Refill(s), Pharmacy: [facility], Diabetes, 165, cm, 01/16/21 13:33:00 EST, Height, 96.36, kg, ... Start Date: 04/30/21 Status: Ordered Start: 04-30-2021 DME MISCellane ous See Instructions, Alcohol Pads Use as directed Dispense 90 day supply x 0 refills DX: diabetes, # 1 EA, 0 Refill(s), Pharmacy: [facility], 165, cm, 01/16/21 [...] Ordered docusate sodium 50 mg / sennosides, intermediate 8.6 mg oral tablet (20 sources) Start: [...] at 2000 Indications: venous thrombosis estrogens, conjugated (intermediate) 0.625 mg/ml vaginal cream (8 sources) Estrogen [...] # 16 gram(s), 11 Refill(s), [facility] [address] 166, cm, 09/09/20 11:16:00 EDT, Height, kg, 09/09/20 11:16:00 EDT, Dosing Weight Start Date: 10/28/20 Status: Ordered folic acid 1 mg oral tablet (20 sources) Start: 11-11-2022 take 1 mg by mouth once daily Folic Acid Active 1 MG PO DAILY November 11, 2022 12:00am Freestyle [place] 14 day sensor (1 source) Start: 09-16-2021 Freestyle Read er 14 day sensor See Instructions, 1 month supply, # 2 EA, 0 Refill(s), Pharmacy: [facility], 165, cm, 01/16/21 [...] qDay, # 30 tab(s), 3 Refill(s), Pharmacy: [facility], Diarrhea Diabetes mellitus [...] qDay, # 90 tab(s), 3 Refill(s), Pharmacy: [facility], 165vira, 05/04/22 10:05:00 EDT, [...] qDay, # 90 tab(s), 3 Refill(s), Pharmacy: [facility], vira Covarrubias, 01/16/21 13:33:00 EST, Height, kg, 04/06/21 13:21:00 EDT, Dosing Weight Start Date: 04/22/21 Status: Ordered Start: 06-11-2013 take 1 tablet by [facility] every twenty-four hours Metoprolol Succinate ER 50 [...] qDay, # 90 tab(s), 3 Refill(s), Pharmacy: [facility], 165, cm, 05/04/22 10:05:00 [...] qDay, # 90 tab(s), 3 Refill(s), Pharmacy: [facility], 165, cm, 01/16/21 13:33:00 EST, Height, kg, 04/06/21 13:21:00 EDT, Dosing Weight Start Date: 04/22/21 Status: Ordered nitroglycerin 0.4 mg sublingual tablet (3 sources) Start: 04-22-2021 nitroglycerin 0.4 mg sublingual tablet See Instructions, DISSOLVE 1 TABLET UNDER THE TONGUE NEEDED FOR CHEST PAIN EVERY 5 MINUTES UP TO 3 TIMES. IF NO RELIEF CALL 911., # 25 tab(s), 0 Refill(s), Pharmacy: [facility], 165, cm, 01/16/21 13:33:00 EST, Height, kg, ... Start Date: 04/22/21 Status: Ordered nystatin 100,000 units/g topical cream (1 source) Start: 09-16-2021 End: 12-09-2021 nystatin 100,000 units/g topical cream Apply 1 marcy, Topical, BID, X 14 day(s), # 30 gram(s), 5 Refill(s), Pharmacy: [facility], Cream, 165, cm, 01/16/21 [...] Start: 08-09-2023 take 2 tablets by [facility] once daily Cyanocobalamin (Vitamin [...] 2X/week, # 42.5 gram(s), 11 Refill(s), [facility], 165, cm, 01/06/22 9:22:00 [...] once daily. For 7 days ending 09/20/23. (Storenvy Ultimate Jie Probiotic 15 BILLION per SNF list) 0 09/27/2023 10/31/2023 Discontinued (Discontinued by another clinician) Start: 09-27-2023 take 1 capsule by [facility] once daily L. acidophilus-L. rhamnosus (Probiotic) 15 billion cell capsule Indications: Dilated cardiomyopathy (CMS/HCC) Take 1 capsule by mouth once daily. For 7 days ending 09/20/23. (Storenvy Ultimate Jie Probiotic 15 BILLION per SNF [...] Daily, # 90 tab(s), 3 Refill(s), Pharmacy: [facility], 165, cm, 01/16/21 [...] Date: 07/20/22 Status: Ordered polyethylene glycol 3350 06712 mg powder for oral solution (20 sources) [...] Date: 07/20/22 Status: Ordered polyethylene glycol 3350 778850 mg / potassium chloride 2970 mg / sodium bicarbonate 6740 mg / sodium chloride 5860 mg / sodium sulfate 04075 mg powder for oral solution (1 source) [...] Oncology Visit Reporton 09-14 Oncology Visit Report [facility] [address] [place] [id number] OFFICE VISIT Date of Service: 09/26/25 0934 MR#: [id number] Acct: [id number] Name: POLI RAMIREZ Rep #: [id number] : 1950 From: Delfin Jeffries MD Age/Sex: 74/F Location: [facility] [place] Status: Signed HPI Subjective Date of Service [...] do Oral Iron supplements. Was seen in [facility], CT chest on 02/18/2023 showed L breast nodule, multiple small lung nodules. CT neck done on 03/18/2023 showed post operative changes. Got iron infusion at [place]. Comes for follow up, found to have Anemia and referred for follow up. Has Folley's Cath in place. [facility] Medical History Colitis On mechanically assisted ventilation [...] Breast cancer Grandmother Diabetes Social History housing: fdc Smoking Status: Former smoker alcohol intake: never [...] bisacodyl 10 mg rectal suppository 10 mg ID DAILY PRN constipation 11/11/22 09/26/25 History acetaminophen [...] pain 09/26 (more content not included)... Normal [facility] HH, Hemoglobin AND Hematocri ton 09-25-2025 Hematocrit (Bld) [Volume fraction] 24.6 % Low 37-47 [facility] Comment on above: Order Comment: 310-2 Performed By: #### L 100.0600 #### [facility] [address] [place], [address] Hemoglobin (Bld) [Mass/Vol] 7.3 g/dL Low 12.0-15.0 [facility] Comment on above: Order Comment: 310-2 Performed By: #### L 100.0600 #### [facility] [address] [place], [address] CBC-Complete Blood Cnt No Di ffon 09-18-2025 Erythrocyte distribution width (RBC) [Ratio] 14.2 % Normal 11.6-14.6 [facility] Comment on above: Order Comment: 310.2 Performed By: #### L 500.4050, L100.0500 #### [facility] [address] [place], [address] Hematocrit (Bld) [Volume fraction] 24.5 % Low 37-47 [facility] Comment on above: Order Comment: 310.2 Performed By: #### L 500.4050, L100.0500 #### [facility] [address] [place], [address] Hemoglobin (Bld) [Mass/Vol] 7.3 g/dL Low 12.0-15.0 [facility] Comment on above: Order Comment: 310.2 Performed By: #### L 500.4050, L100.0500 #### [facility] [address] [place], [address] MCH (RBC) [Entitic mass] 28.0 pg Normal 27.0-32.0 [facility] Comment on above: Order Comment: 310.2 Performed By: #### L 500.4050, L100.0500 #### [facility] [address] [place], [address] MCHC (RBC) [Mass/Vol] 29.8 g/dL Low 32-36 [facility] Comment on above: Order Comment: 310.2 Performed By: #### L 500.4050, L100.0500 #### [facility] [address] [place], [address] MCV (RBC) [Entitic vol] 93.9 fL Normal 81-99 [facility] Comment on above: Order Comment: 310.2 Performed By: #### L 500.4050, L100.0500 #### [facility] [address] [place], [address] Platelet mean volume (Bld) [Entitic vol] 9.5 fL Normal 6.2-12.0 [facility] Comment on above: Order Comment: 310.2 Performed By: #### L 500.4050, L100.0500 #### [facility] [address] [place], [address] Platelets (Bld) [#/Vol] 83 10*3/uL Low 150-450 [facility] Comment on above: Order Comment: 310.2 Performed By: #### L 500.4050, L100.0500 #### [facility] [address] [place], [address] RBC (Bld) [#/Vol] 2.61 10*6/uL Low 4.2-5.4 [facility] Comment on above: Order Comment: 310.2 Performed By: #### L 500.4050, L100.0500 #### [facility] [address] [place], [address] RDW SD 47.9 fl High 35.1-43.9 [facility] Comment on above: Order Comment: 310.2 Performed By: #### L 500.4050, L100.0500 #### [facility] [address] [place], [address] WBC (Bld) [#/Vol] 4.3 10*3/uL Low 4.4-11.0 [facility] Comment on above: Order Comment: 310.2 Performed By: #### L 500.4050, L100.0500 #### [facility] [address] [place], [address] Differential Commenton 09-18 SMEAR COMMENT SCANNED Normal [facility] Comment on above: Order Comment: 310.2 Performed By: #### L 500.4050, L100.0500 #### [facility] [address] [place], [address] HH, Hemoglobin AND Hematocri ton 09-11-2025 Hematocrit (Bld) [Volume fraction] 28.5 % Low 37-47 [facility] Comment on above: Order Comment: 310.2 Performed By: #### L 500.4050, L100.0500 #### [facility] [address] [place], [address] Hemoglobin (Bld) [Mass/Vol] 8.4 g/dL Low 12.0-15.0 [facility] Comment on above: Order Comment: 310.2 Performed By: #### L 500.4050, L100.0500 #### [facility] [address] [place], [address] Basic Metabolic Profile (BMP )on 09-10-2025 BUN/CRE 15.9 RATIO Normal 10-20 [facility] Comment on above: Performed By: #### L 100.0500, L500.2500, BTS #### [facility] [address] [place], [address] Calcium [Mass/Vol] 8.5 mg/dL Normal 7.6-11.0 [facility] Comment on above: Performed By: #### L 100.0500, L500.2500, BTS #### [facility] [address] [place], [address] Chloride [Moles/Vol] 101 mmol/L Normal 98-108 [facility] Comment on above: Performed By: #### L 100.0500, L500.2500, BTS #### [facility] [address] [place], [address] CO2 [Moles/Vol] 34.5 mmol/L High 21.0-32.0 [facility] Comment on above: Performed By: #### L 100.0500, L500.2500, BTS #### [facility] [address] [place], [address] Creatinine [Mass/Vol] 0.82 mg/dL Normal 0.70-1.20 [facility] Comment on above: Performed By: #### L 100.0500, L500.2500, BTS #### [facility] [address] [place], [address] ECRCL 62.66 ml/min Normal 50-250 [facility] Comment on above: Performed By: #### L 100.0500, L500.2500, BTS #### [facility] [address] [place], [address] GAP 9 Normal 5-15 [facility] Comment on above: Performed By: #### L 100.0500, L500.2500, BTS #### [facility] [address] [place], [address] GFR/1.73 sq M.predicted among non-blacks MDRD (S/P/Bld) [Vol rate/Area] 74 mL/min/{1.73_m2} Normal >60 [facility] Comment on above: Result Comment: mL/m in/1.73m2 CKD-EPI Creatinine Equation (2020) Performed By: #### L 100.0500, L500.2500, BTS #### [facility] [address] [place], [address] Glucose [Mass/Vol] 182 mg/dL High 70-99 [facility] Comment on above: Performed By: #### L 100.0500, L500.2500, BTS #### [facility] [address] [place], [address] Potassium [Moles/Vol] 4.3 mmol/L Normal 3.3-5.1 [facility] Comment on above: Result Comment: Hemo lysis present, Results??could be affected. ?? Performed By: #### L 100.0500, L500.2500, BTS #### [facility] [address] [place], [address] Sodium [Moles/Vol] 145 mmol/L Normal 133-145 [facility] Comment on above: Performed By: #### L 100.0500, L500.2500, BTS #### [facility] [address] [place], [address] Urea nitrogen [Mass/Vol] 13 mg/dL Normal 4-19 [facility] Comment on above: Performed By: #### L 100.0500, L500.2500, BTS #### [facility] [address] [place], [address] CBC-Complete Blood Cnt No Di ffon 09-10-2025 Erythrocyte distribution width (RBC) [Ratio] 14.3 % Normal 11.6-14.6 [facility] Comment on above: Performed By: #### L 100.0500, L500.2500, BTS #### [facility] [address] [place], [address] Hematocrit (Bld) [Volume fraction] 26.5 % Low 37-47 [facility] Comment on above: Performed By: #### L 100.0500, L500.2500, BTS #### [facility] [address] [place], [address] Hemoglobin (Bld) [Mass/Vol] 7.9 g/dL Low 12.0-15.0 [facility] Comment on above: Performed By: #### L 100.0500, L500.2500, BTS #### [facility] [address] [place], [address] MCH (RBC) [Entitic mass] 27.8 pg Normal 27.0-32.0 [facility] Comment on above: Performed By: #### L 100.0500, L500.2500, BTS #### [facility] [address] [place], [address] MCHC (RBC) [Mass/Vol] 29.8 g/dL Low 32-36 [facility] Comment on above: Performed By: #### L 100.0500, L500.2500, BTS #### [facility] [address] [place], [address] MCV (RBC) [Entitic vol] 93.3 fL Normal 81-99 [facility] Comment on above: Performed By: #### L 100.0500, L500.2500, BTS #### [facility] [address] [place], [address] Platelet mean volume (Bld) [Entitic vol] 10.7 fL Normal 6.2-12.0 [facility] Comment on above: Performed By: #### L 100.0500, L500.2500, BTS #### [facility] [address] [place], [address] Platelets (Bld) [#/Vol] 111 10*3/uL Low 150-450 [facility] Comment on above: Performed By: #### L 100.0500, L500.2500, BTS #### [facility] [address] [place], [address] RBC (Bld) [#/Vol] 2.84 10*6/uL Low 4.2-5.4 [facility] Comment on above: Performed By: #### L 100.0500, L500.2500, BTS #### [facility] [address] [place], [address] RDW SD 48.1 fl High 35.1-43.9 [facility] Comment on above: Performed By: #### L 100.0500, L500.2500, BTS #### [facility] [address] [place], [address] WBC (Bld) [#/Vol] 5.1 10*3/uL Normal 4.4-11.0 [facility] Comment on above: Performed By: #### L 100.0500, L500.2500, BTS #### [facility] [address] [place], [address] Emergency Department Summary on 09-10-2025 Emergency Department Summary [facility] Medical Records Department [address] [place] [address] Emergency Department Summary 09/10/25 MR#: [id number] Acct: [id number] Name: POLI RAMIREZ Rep #: [id number] : 1950 74 From: Royce Vigil MD [...] Symptoms: Patient denies orthostatic symptoms or dyspnea, [place] exertion, chest bigg Narrative Narrative: Patient is [...] Prior similar symptoms: Yes Recent [facility] Medical History Colitis On mechanically assisted ventilation [...] bisacodyl 10 mg rectal suppository 10 mg ID DAILY PRN constipation 11/11/22 Unknown History cranberry [...] constipation Unkno (more content not included)... Normal [facility] Stool Occult Blood iFOBon STOB Positive Normal [facility] Comment on above: Performed By: #### M 100.7900 #### [facility] [address] [place], [address] Type AND Screenon 09-10-2025 Ab SCREEN GEL Negative Normal [facility] Comment on above: Order Comment: HGI Performed By: #### L 100.0500, L500.2500, BTS #### [facility] [address] [place], [address] HH, Hemoglobin AND Hematocri ton 09-09-2025 Hematocrit (Bld) [Volume fraction] 24.4 % Low 37-47 [facility] Comment on above: Order Comment: 310.2 Performed By: #### L 500.4050, L100.0500 #### [facility] [address] [place], [address] Hemoglobin (Bld) [Mass/Vol] 7.0 g/dL Low 12.0-15.0 [facility] Comment on above: Order Comment: 310.2 Performed By: #### L 500.4050, L100.0500 #### [facility] [address] [place], [address] Ferritinon 09-06-2025 Ferritin [Mass/Vol] 52 ng/mL Normal 22-378 [facility] Comment on above: Order Comment: 310.2 Performed By: #### L 500.4050, L100.0500 #### [facility] [address] [place], [address] Iron+Iron Binding Capacityon 09-06-2025 TIBC 182 ug/dL Low 250-450 [facility] Comment on above: Order Comment: 310.2 Performed By: #### L 500.4050, L100.0500 #### [facility] [address] [place], [address] Vitamin B12on 09-06-2025 Cobalamin (Vitamin B12) [Mass/Vol] 195 pg/mL Normal 180-914 [facility] Comment on above: Order Comment: 310.2 Performed By: #### L 500.4050, L100.0500 #### [facility] [address] [place], [address] CBC-Complete Blood Cnt No Di ffon 09-04-2025 Platelets (Bld) [#/Vol] 91 10*3/uL Low 150-450 [facility] Comment on above: Order Comment: 310.2 Performed By: #### L 100.0500, L500.4050, L501.9985 #### [facility] [address] [place], [address] Comprehensive Metabolic Prof ilon 09-04-2025 Albumin [Mass/Vol] 3.4 g/dL Normal 3.4-4.8 [facility] Comment on above: Order Comment: 310.2 Performed By: #### L 500.4050, L100.0500 #### [facility] [address] [place], [address] Albumin/Globulin [Mass ratio] 1.2 {ratio} Normal 0.9-2.4 [facility] Comment on above: Order Comment: 310.2 Performed By: #### L 500.4050, L100.0500 #### [facility] [address] [place], [address] ALK PHOS 61 U/L Normal 35-104 [facility] Comment on above: Order Comment: 310.2 Performed By: #### L 500.4050, L100.0500 #### [facility] [address] [place], [address] ALT [Catalytic activity/Vol] U/L Normal <=34 [facility] Comment on above: Order Comment: 310.2 Performed By: #### L 500.4050, L100.0500 #### [facility] [address] [place], [address] AST [Catalytic activity/Vol] 14 U/L Normal <=31 [facility] Comment on above: Order Comment: 310.2 Performed By: #### L 500.4050, L100.0500 #### [facility] [address] [place], [address] Bilirubin [Mass/Vol] 0.22 mg/dL Normal 0.00-1.30 [facility] Comment on above: Order Comment: 310.2 Performed By: #### L 500.4050, L100.0500 #### [facility] [address] [place], [address] BUN/CRE 29.8 RATIO High 10-20 [facility] Comment on above: Order Comment: 310.2 Performed By: #### L 500.4050, L100.0500 #### [facility] [address] [place], [address] Calcium [Mass/Vol] 8.4 mg/dL Normal 7.6-11.0 [facility] Comment on above: Order Comment: 310.2 Performed By: #### L 500.4050, L100.0500 #### [facility] [address] [place], [address] Chloride [Moles/Vol] 104 mmol/L Normal 98-108 [facility] Comment on above: Order Comment: 310.2 Performed By: #### L 500.4050, L100.0500 #### [facility] [address] [place], [address] CO2 [Moles/Vol] 35.7 mmol/L High 21.0-32.0 [facility] Comment on above: Order Comment: 310.2 Performed By: #### L 500.4050, L100.0500 #### [facility] [address] [place], [address] Creatinine [Mass/Vol] 0.53 mg/dL Low 0.70-1.20 [facility] Comment on above: Order Comment: 310.2 Performed By: #### L 500.4050, L100.0500 #### [facility] [address] [place], [address] GAP 7 Normal 5-15 [facility] Comment on above: Order Comment: 310.2 Performed By: #### L 500.4050, L100.0500 #### [facility] [address] [place], [address] GFR/1.73 sq M.predicted among non-blacks MDRD (S/P/Bld) [Vol rate/Area] 96 mL/min/{1.73_m2} Normal >60 [facility] Comment on above: Order Comment: 310.2 Result Comment: mL/m in/1.73m2 CKD-EPI Creatinine Equation (2020) Performed By: #### L 500.4050, L100.0500 #### [facility] [address] [place], [address] Globulin (S) [Mass/Vol] 2.7 g/dL Normal 2.2-4.2 [facility] Comment on above: Order Comment: 310.2 Performed By: #### L 500.4050, L100.0500 #### [facility] [address] [place], [address] Glucose [Mass/Vol] 118 mg/dL High 70-99 [facility] Comment on above: Order Comment: 310.2 Performed By: #### L 500.4050, L100.0500 #### [facility] [address] [place], [address] Potassium [Moles/Vol] 3.8 mmol/L Normal 3.3-5.1 [facility] Comment on above: Order Comment: 310.2 Performed By: #### L 500.4050, L100.0500 #### [facility] [address] [place], [address] Sodium [Moles/Vol] 146 mmol/L High 133-145 [facility] Comment on above: Order Comment: 310.2 Performed By: #### L 500.4050, L100.0500 #### [facility] [address] [place], [address] T PROT 6.1 g/dL Normal 5.9-8.4 [facility] Comment on above: Order Comment: 310.2 Performed By: #### L 500.4050, L100.0500 #### [facility] [address] [place], [address] Urea nitrogen [Mass/Vol] 16 mg/dL Normal 4-19 [facility] Comment on above: Order Comment: 310.2 Performed By: #### L 500.4050, L100.0500 #### [facility] [address] [place], [address] Hemoglobin A1con 09-04-2025 HbA1c (Bld) [Mass fraction] % Normal <=5.6 [facility] Comment on above: Order Comment: 310.2 Result Comment: Norm al < 5.7 % Prediabetic 5.7 - 6.4 % Diabetic >or= 6.5 % Please note range changes. Performed By: #### L 500.4050, L100.0500 #### [facility] [address] [place], [address] CBC-Complete Blood Cnt No Di ffon 09-03-2025 HCT Normal 37-47 [facility] Comment on above: Order Comment: 310.2 Result Comment: KELLY CHAVEZ SUSY @610. TRY 09/04/25 Performed By: #### L 500.4050, L100.0500 #### [facility] [address] [place], [address] HGB Normal 12.0-15.0 [facility] Comment on above: Order Comment: 310.2 Result Comment: KELLY CHAVEZ SUSY @610. TRY 09/04/25 Performed By: #### L 500.4050, L100.0500 #### [facility] [address] [place], [address] MCH Normal 27.0-32.0 [facility] Comment on above: Order Comment: 310.2 Result Comment: KELLY CHAVEZ SUSY @610. TRY 09/04/25 Performed By: #### L 500.4050, L100.0500 #### [facility] [address] [place], [address] MCHC Normal 32-36 [facility] Comment on above: Order Comment: 310.2 Result Comment: KELLY CHAVEZ SUSY @610. TRY 09/04/25 Performed By: #### L 500.4050, L100.0500 #### [facility] [address] [place], [address] MCV Normal 81-99 [facility] Comment on above: Order Comment: 310.2 Result Comment: KELLY JAIN @610. TRY 09/04/25 Performed By: #### L 500.4050, L100.0500 #### [facility] [address] [place], [address] PLT Normal 150-450 [facility] Comment on above: Order Comment: 310.2 Result Comment: KELLY JAIN @610. TRY 09/04/25 Performed By: #### L 500.4050, L100.0500 #### [facility] [address] [place], [address] RBC Normal 4.2-5.4 [facility] Comment on above: Order Comment: 310.2 Result Comment: KELLY JAIN @610. TRY 09/04/25 Performed By: #### L 500.4050, L100.0500 #### [facility] [address] [place], [address] RDW CV Normal 11.6-14.6 [facility] Comment on above: Order Comment: 310.2 Result Comment: KELLY JAIN @610. TRY 09/04/25 Performed By: #### L 500.4050, L100.0500 #### [facility] [address] [place], [address] RDW SD Normal 35.1-43.9 [facility] Comment on above: Order Comment: 310.2 Result Comment: KELLY JAIN @610. TRY 09/04/25 Performed By: #### L 500.4050, L100.0500 #### [facility] [address] [place], [address] WBC Normal 4.4-11.0 [facility] Comment on above: Order Comment: 310.2 Result Comment: KELLY JAIN @610. TRY 09/04/25 Performed By: #### L 500.4050, L100.0500 #### [facility] [address] [place], [address] Comprehensive Metabolic Prof iljose d 09-03-2025 ALB Normal 3.4-4.8 [facility] Comment on above: Order Comment: 310.2 Result Comment: KELLY TOLD SUSY @610. TRY 09/04/25 Performed By: #### L 500.4050, L100.0500 #### [facility] [address] [place], [address] ALK PHOS Normal 35-104 [facility] Comment on above: Order Comment: 310.2 Result Comment: UTO TOLD SUSY @610. TRY 09/04/25 Performed By: #### L 500.4050, L100.0500 #### [facility] [address] [place], [address] ALT Normal <=34 [facility] Comment on above: Order Comment: 310.2 Result Comment: UTO TOLD SUSY @610. TRY 09/04/25 Performed By: #### L 500.4050, L100.0500 #### [facility] [address] [place], [address] AST Normal <=31 [facility] Comment on above: Order Comment: 310.2 Result Comment: KELLY TOLD SUSY @610. TRY 09/04/25 Performed By: #### L 500.4050, L100.0500 #### [facility] [address] [place], [address] BUN Normal 4-19 [facility] Comment on above: Order Comment: 310.2 Result Comment: KELLY TOLD SUSY @610. TRY 09/04/25 Performed By: #### L 500.4050, L100.0500 #### [facility] [address] [place], [address] BUN/CRE Normal 10-20 [facility] Comment on above: Order Comment: 310.2 Result Comment: UTO TOLD SUSY @610. TRY 09/04/25 Performed By: #### L 500.4050, L100.0500 #### [facility] [address] [place], [address] Calcium Normal 7.6-11.0 [facility] Comment on above: Order Comment: 310.2 Result Comment: KELLY JAIN @610. TRY 09/04/25 Performed By: #### L 500.4050, L100.0500 #### [facility] [address] [place], [address] CL Normal 98-108 [facility] Comment on above: Order Comment: 310.2 Result Comment: KELLY JAIN @610. TRY 09/04/25 Performed By: #### L 500.4050, L100.0500 #### [facility] [address] [place], [address] CO2 Normal 21.0-32.0 [facility] Comment on above: Order Comment: 310.2 Result Comment: KELLY JAIN @610. TRY 09/04/25 Performed By: #### L 500.4050, L100.0500 #### [facility] [address] [place], [address] CREAT,SERUM Normal 0.70-1.20 [facility] Comment on above: Order Comment: 310.2 Result Comment: KELLY JAIN @610. TRY 09/04/25 Performed By: #### L 500.4050, L100.0500 #### [facility] [address] [place], [address] eGFR Normal >60 [facility] Comment on above: Order Comment: 310.2 Result Comment: KELLY JAIN @610. TRY 09/04/25 Performed By: #### L 500.4050, L100.0500 #### [facility] [address] [place], [address] GAP Normal 5-15 [facility] Comment on above: Order Comment: 310.2 Result Comment: KELLY AJIN @610. TRY 09/04/25 Performed By: #### L 500.4050, L100.0500 #### [facility] [address] [place], [address] GLU Normal 70-99 [facility] Comment on above: Order Comment: 310.2 Result Comment: KELLY JAIN @610. TRY 09/04/25 Performed By: #### L 500.4050, L100.0500 #### [facility] [address] [place], [address] Potassium Normal 3.3-5.1 [facility] Comment on above: Order Comment: 310.2 Result Comment: KELLY JAIN @610. TRY 09/04/25 Performed By: #### L 500.4050, L100.0500 #### [facility] [address] [place], [address] T BILI Normal 0.00-1.30 [facility] Comment on above: Order Comment: 310.2 Result Comment: KELLY JANI @610. TRY 09/04/25 Performed By: #### L 500.4050, L100.0500 #### [facility] [address] [place], [address] T PROT Normal 5.9-8.4 [facility] Comment on above: Order Comment: 310.2 Result Comment: KELLY JAIN @610. TRY 09/04/25 Performed By: #### L 500.4050, L100.0500 #### [facility] [address] [place], [address] Comprehensive Metabolic Profil Normal 133-145 [facility] Comment on above: Order Comment: 310.2 Result Comment: KELLY JAIN @610. TRY 09/04/25 Performed By: #### L 500.4050, L100.0500 #### [facility] [address] [place], [address] CBC panel Auto (Bld)on 10-31 Erythrocyte distribution width (RBC) [Ratio] 14.4 % Normal 11.5-14.5 [facility] Comment on above: Performed By: #### 1 9123-9 #### BEVERLEY Poe ([id number]) [facility] ([facility] [place]) [id number] [place] [address] Hematocrit (Bld) [Volume fraction] 33.5 % Low 36.0-46.0 [facility] Comment on above: Performed By: #### 1 9123-9 #### BEVERLEY Poe ([id number]) [facility] ([facility] [place]) [address] [place] [address] Hemoglobin (Bld) [Mass/Vol] 10.0 g/dL Low 12.0-16.0 [facility] Comment on above: Performed By: #### 1 9123-9 #### BEVERLEY Poe ([id number]) [facility] ([facility] [place]) [address] [place] [address] MCH (RBC) [Entitic mass] 31.2 pg Normal 26.0-34.0 [facility] Comment on above: Performed By: #### 1 9123-9 #### BEVERLEY Poe ([id number]) [facility] ([facility] [place]) [address] [place] [address] MCHC (RBC) [Mass/Vol] 29.9 g/dL Low 32.0-36.0 [facility] Comment on above: Performed By: #### 1 9123-9 #### BEVERLEY Poe ([id number]) [facility] ([facility] [place]) [id number] [place] [address] MCV (RBC) [Entitic vol] 104 fL High 80-100 [facility] Comment on above: Performed By: #### 1 9123-9 #### BEVERLEY Poe ([id number]) [facility] ([facility] [place]) [address] [place] [address] Nucleated RBC/100 WBC (Bld) [Ratio] 0.0 /100 WBCs Normal 0.0-0.0 [facility] Comment on above: Performed By: #### 1 9123-9 #### BEVERLEY Poe ([id number]) [facility] ([facility] [place]) [address] [place] [address] Platelets (Bld) [#/Vol] 112 x10*3/uL Low 150-450 [facility] Comment on above: Performed By: #### 1 9123-9 #### BEVERLEY Poe ([id number]) [facility] ([facility] [place]) [id number] [place] [address] RBC (Bld) [#/Vol] 3.21 x10*6/uL Low 4.00-5.20 [facility] Comment on above: Performed By: #### 1 9123-9 #### BEVERLEY Poe ([id number]) [facility] ([facility] [place]) [address] [place] [address] WBC (Bld) [#/Vol] 4.6 x10*3/uL Normal 4.4-11.3 [facility] Comment on above: Performed By: #### 1 9123-9 #### BEVERLEY Poe ([id number]) [facility] ([facility] [place]) [address] [place] [address] Comprehensive metabolic 2000 panelon 10-31-2023 Albumin BCP dye [Mass/Vol] 3.6 g/dL Normal 3.4-5.0 [facility] Comment on above: Performed By: #### 1 9123-9 #### BEVERLEY Poe ([id number]) [facility] ([facility] [place]) [address] [place] [address] ALP [Catalytic activity/Vol] 58 U/L Normal 33-136 [facility] Comment on above: Performed By: #### 1 9123-9 #### BEVERLEY Poe ([id number]) [facility] ([facility] [place]) [address] [place] [address] ALT With P-5'-P [Catalytic activity/Vol] 16 U/L Normal 7-45 [facility] Comment on above: Result Comment: Ирина ents treated with Sulfasalazine may generate falsely decreased results for ALT. Performed By: #### 1 9123-9 #### BEVERLEY Poe ([id number]) [facility] ([facility] [place]) [address] [place] [address] Anion gap [Moles/Vol] 8 mmol/L Low 10-20 [facility] Comment on above: Performed By: #### 1 9123-9 #### BEVERLEY Peo ([id number]) [facility] ([facility] [place]) [address] [place] [address] AST With P-5'-P [Catalytic activity/Vol] 14 U/L Normal 9-39 [facility] Comment on above: Performed By: #### 1 9123-9 #### BEVERLEY Poe ([id number]) [facility] ([facility] [place]) [address] [place] [address] Bilirubin [Mass/Vol] 0.5 mg/dL Normal 0.0-1.2 [facility] Comment on above: Performed By: #### 1 9123-9 #### BEVERLEY Poe ([id number]) [facility] ([facility] [place]) [address] [place] [address] Calcium [Mass/Vol] 9.3 mg/dL Normal 8.6-10.6 [facility] Comment on above: Performed By: #### 1 9123-9 #### BEVERLEY Poe ([id number]) [facility] ([facility] [place]) [address] [place] [address] Chloride [Moles/Vol] 99 mmol/L Normal 98-107 [facility] Comment on above: Performed By: #### 1 9123-9 #### BEVERLEY Poe ([id number]) [facility] ([facility] [place]) [address] [place] [address] CO2 [Moles/Vol] 42 mmol/L Critically high 21-32 [facility] Comment on above: Performed By: #### 1 9123-9 #### BEVERLEY Poe ([id number]) [facility] ([facility] [place]) [address] [place] [address] Creatinine [Mass/Vol] 0.48 mg/dL Low 0.50-1.05 [facility] Comment on above: Performed By: #### 1 9123-9 #### BEVERLEY Poe ([id number]) [facility] ([facility] [place]) [address] [place] [address] GFR/1.73 sq M.predicted MDRD (S/P/Bld) [Vol rate/Area] mL/min/{1.73_m2} Normal >60 [facility] Comment on above: Result Comment: Calc ulations of estimated GFR are performed using the 2020 CKD-EPI Study Refit equation without the race variable for the IDMS-Traceable creatinine methods. https://jasn.asnjournals.org/content/early//ASN.37437 08810 Performed By: #### 1 9123-9 #### BEVERLEY Poe ([id number]) [facility] ([facility] [place]) [address] [place] [address] Glucose [Mass/Vol] 82 mg/dL Normal 74-99 [facility] Comment on above: Performed By: #### 1 9123-9 #### BEVERLEY Poe ([id number]) [facility] ([facility] [place]) [address] [place] [address] Potassium [Moles/Vol] 4.3 mmol/L Normal 3.5-5.3 [facility] Comment on above: Performed By: #### 1 9123-9 #### BEVERLEY Poe ([id number]) [facility] ([facility] [place]) [id number] [place] [address] Protein [Mass/Vol] 6.8 g/dL Normal 6.4-8.2 [facility] Comment on above: Performed By: #### 1 9123-9 #### BEVERLEY Poe ([id number]) [facility] ([facility] [place]) [address] [place] [address] Sodium [Moles/Vol] 145 mmol/L Normal 136-145 [facility] Comment on above: Performed By: #### 1 9123-9 #### BEVERLEY CARSONER L ([id number]) [facility] ([facility] [place]) [address] [place] [address] Urea nitrogen [Mass/Vol] 21 mg/dL Normal 6-23 [facility] Comment on above: Performed By: #### 1 9123-9 #### BEVERLEY DODD L ([id number]) [facility] ([facility] [place]) [id number] [place] [address] Natriuretic peptide B [Mass/ Vol]on 10-31-2023 Interpretation [...] local laboratory for further information. [facility] Natriuretic peptide B (Bld) [Mass/Vol] 98 pg/mL Normal 0-99 [facility] Comment on above: Order Comment: <100 pg/mL - Heart failure [id number] pg/mL - Intermediate probability of acute heart [...] #### 1 9123-9 #### BEVERLEY DODD L ([id number]) [facility] ([facility] [place]) [address] [place] [address] Blood type and Indirect anti body screen panel (Bld)on 10-28-2023 ABO group Nom (Bld) O Normal [facility] Comment on above: Performed By: #### 1 9123-9 #### BEVERLEY Poe ([id number]) [facility] ([facility] [place]) [address] [place] [address] 46088 Blood group antibody screen Ql Negative [facility] Comment on above: Performed By: #### 1 9123-9 #### BEVERLEY Poe ([id number]) [facility] ([facility] [place]) [address] [place] [address] 47077 D Ag Ql (Bld) Positive [facility] Comment on above: Performed By: #### 1 9123-9 #### BEVERLEY Poe ([id number]) [facility] ([facility] [place]) [address] [place] [address] 39439 CBC W Auto Differential pane l (Bld)on 10-28-2023 Basophils (Bld) [#/Vol] 0.01 x10*3/uL Normal 0.00-0.10 [facility] Comment on above: Performed By: #### 1 9123-9 #### BEVERLEY Poe ([id number]) [facility] ([facility] [place]) [address] [place] [address] 60493 Basophils/100 WBC (Bld) 0.3 % Normal 0.0-2.0 [facility] Comment on above: Performed By: #### 1 9123-9 #### BEVERLEY DODD L ([id number]) [facility] ([facility] [place]) [address] [place] [address]5625 Eosinophils (Bld) [#/Vol] 0.05 x10*3/uL Normal 0.00-0.40 [facility] Comment on above: Performed By: #### 1 9123-9 #### BEVERLEY Poe ([id number]) [facility] ([facility] [place]) [address] [place] [address]486 Eosinophils/100 WBC (Bld) 1.3 % Normal 0.0-6.0 [facility] Comment on above: Performed By: #### 1 9123-9 #### BEVERLEY Poe ([id number]) [facility] ([facility] [place]) [address] [place] [address] 26466 Erythrocyte distribution width (RBC) [Ratio] 14.5 % Normal 11.5-14.5 [facility] Comment on above: Performed By: #### 1 9123-9 #### BEVERLEY Poe ([id number]) [facility] ([facility] [place]) [address] [place] [address] Hematocrit (Bld) [Volume fraction] 32.3 % Low 36.0-46.0 [facility] Comment on above: Performed By: #### 1 9123-9 #### BEVERLEY Poe ([id number]) [facility] ([facility] [place]) [address] [place] [address] 30902 Hemoglobin (Bld) [Mass/Vol] 9.5 g/dL Low 12.0-16.0 [facility] Comment on above: Performed By: #### 1 9123-9 #### BEVERLEY Poe ([id number]) [facility] ([facility] [place]) [address] [place] [address] 26188 Immature granulocytes (Bld) [#/Vol] 0.02 x10*3/uL Normal 0.00-0.50 [facility] Comment on above: Performed By: #### 1 9123-9 #### BEVERLEY Poe ([id number]) [facility] ([facility] [place]) [address] [place] [address] 63904 Immature granulocytes/100 WBC (Bld) 0.5 % Normal 0.0-0.9 [facility] Comment on above: Result Comment: Sharda ture Granulocyte Count (IG) includes promyelocytes, myelocytes and metamyelocytes but does not include bands. Percent differential counts (%) should be interpreted in the context of the absolute cell counts (cells/UL). Performed By: #### 1 9123-9 #### BEVERLEY Poe ([id number]) [facility] ([facility] [place]) [address] [place] [address] 047[address] Lymphocytes (Bld) [#/Vol] 0.64 x10*3/uL Low 0.80-3.00 [facility] Comment on above: Performed By: #### 1 9123-9 #### BEVERLEY Poe ([id number]) [facility] ([facility] [place]) [address] [place] [address] 56145 Lymphocytes/100 WBC (Bld) 16.0 % Normal 13.0-44.0 [facility] Comment on above: Performed By: #### 1 9123-9 #### BEVERLEY Poe ([id number]) [facility] ([facility] [place] [address] [place] [address] 99619 MCH (RBC) [Entitic mass] 30.2 pg Normal 26.0-34.0 [facility] Comment on above: Performed By: #### 1 9123-9 #### BEVERLEY Poe ([id number]) [facility] ([facility] [place]) [address] [place] [address] 95109 MCHC (RBC) [Mass/Vol] 29.4 g/dL Low 32.0-36.0 [facility] Comment on above: Performed By: #### 1 9123-9 #### BEVERLEY Poe ([id number]) [facility] ([facility] [place]) [address] [place] [address] 40406 MCV (RBC) [Entitic vol] 103 fL High 80-100 [facility] Comment on above: Performed By: #### 1 9123-9 #### BEVERLEY Poe ([id number]) [facility] ([facility] [place]) [address] [place] [address] 42271 Monocytes (Bld) [#/Vol] 0.23 x10*3/uL Normal 0.05-0.80 [facility] Comment on above: Performed By: #### 1 9123-9 #### BEVERLEY Poe ([id number]) [facility] ([facility] [place]) [address] [place] [address] [place] [address] Monocytes/100 WBC (Bld) 5.8 % Normal 2.0-10.0 [facility] Comment on above: Performed By: #### 1 9123-9 #### BEVERLEY Poe ([id number]) [facility] ([facility] [place]) [address] [place] [address] Neutrophils (Bld) [#/Vol] 3.04 x10*3/uL Normal 1.60-5.50 [facility] Comment on above: Result Comment: Perc ent differential counts (%) should be interpreted in the context of the absolute cell counts (cells/uL). Performed By: #### 1 9123-9 #### BEVERLEY Poe ([id number]) [facility] ([facility] [place]) [id number] [place] [address] 74066 Neutrophils/100 WBC (Bld) 76.1 % Normal 40.0-80.0 [facility] Comment on above: Performed By: #### 1 9123-9 #### BEVERLEY Poe ([id number]) [facility] ([facility] [place]) [id number] [place] [address] 58386 Nucleated RBC/100 WBC (Bld) [Ratio] 0.0 /100 WBCs Normal 0.0-0.0 [facility] Comment on above: Performed By: #### 1 9123-9 #### BEVERLEY Poe ([id number]) [facility] ([facility] [place]) [address] [place] [address] Platelets (Bld) [#/Vol] 107 x10*3/uL Low 150-450 [facility] Comment on above: Performed By: #### 1 9123-9 #### BEVERLEY Poe ([id number]) [facility] ([facility] [place]) [id number] [place] [address] 98175 RBC (Bld) [#/Vol] 3.15 x10*6/uL Low 4.00-5.20 [facility] [place] Comment on above: Performed By: #### 1 9123-9 #### BEVERLEY Poe ([id number]) [facility] ([facility] [place]) [address] [place] [address] WBC (Bld) [#/Vol] 4.0 x10*3/uL Low 4.4-11.3 [facility] Comment on above: Performed By: #### 1 9123-9 #### BEVERLEY Poe ([id number]) [facility] ([facility] [place]) [address] [place] [address] Comprehensive metabolic 2000 panelon 10-28-2023 Albumin BCP dye [Mass/Vol] 3.6 g/dL Normal 3.4-5.0 [facility] Comment on above: Performed By: #### 1 9123-9 #### BEVERLEY Poe ([id number]) [facility] ([facility] [place]) [id number] [place] [address] 87650 ALP [Catalytic activity/Vol] 66 U/L Normal 33-136 [facility] Comment on above: Performed By: #### 1 9123-9 #### BEVERLEY Poe ([id number]) [facility] ([facility] [place]) [address] [place] [address] ALT With P-5'-P [Catalytic activity/Vol] 18 U/L Normal 7-45 [facility] Comment on above: Result Comment: Ирина ents treated with Sulfasalazine may generate falsely decreased results for ALT. Performed By: #### 1 9123-9 #### BEVERLEY Poe ([id number]) [facility] ([facility] [place]) [address] [place] [address] Anion gap [Moles/Vol] 9 mmol/L Low 10-20 [facility] Comment on above: Performed By: #### 1 9123-9 #### BEVERLEY Poe ([id number]) [facility] ([facility] [place]) [address] [place] [address] AST With P-5'-P [Catalytic activity/Vol] 16 U/L Normal 9-39 [facility] Comment on above: Performed By: #### 1 9123-9 #### BEVERLEY Poe ([id number]) [facility] ([facility] [place]) [address] [place] [address] Bilirubin [Mass/Vol] 0.6 mg/dL Normal 0.0-1.2 [facility] [place] Comment on above: Performed By: #### 1 9123-9 #### BEVERLEY CARSONER L ([id number]) [facility] ([facility] [place]) [address] [place] [address] Calcium [Mass/Vol] 9.4 mg/dL Normal 8.6-10.6 [facility] Comment on above: Performed By: #### 1 9123-9 #### BEVERLEY CARSONER L ([id number]) [facility] ([facility] [place]) [address] [place] [address] Chloride [Moles/Vol] 100 mmol/L Normal 98-107 [facility] [place] Comment on above: Performed By: #### 1 9123-9 #### BEVERLEY PATELTZER L ([id number]) [facility] ([facility] [place]) [address] [place] [address] CO2 [Moles/Vol] 43 mmol/L Critically high 21-32 [facility] [place] Comment on above: Performed By: #### 1 9123-9 #### BEVERLEY DODD L ([id number]) [facility] ([facility] [place]) [address] [place] [address] Creatinine [Mass/Vol] 0.62 mg/dL Normal 0.50-1.05 [facility] Comment on above: Performed By: #### 1 9123-9 #### BEVERLEY PATELTZER L ([id number]) [facility] ([facility] [place]) [address] [place] [address] GFR/1.73 sq M.predicted MDRD (S/P/Bld) [Vol rate/Area] mL/min/{1.73_m2} Normal >60 [facility] Comment on above: Result Comment: Calc ulations of estimated GFR are performed using the 2020 CKD-EPI Study Refit equation without the race variable for the IDMS-Traceable creatinine methods. https://brunasn.priscillajournals.org/content//ASN.53456 43831 Performed By: #### 1 9123-9 #### BEVERLEY Poe ([id number]) [facility] ([facility] [place]) [address] [place] [address]276 Glucose [Mass/Vol] 101 mg/dL High 74-99 [facility] Comment on above: Performed By: #### 1 9123-9 #### BEVERLEY Poe ([id number]) [facility] ([facility] [place]) [address] [place] [address] 33805 Potassium [Moles/Vol] 4.5 mmol/L Normal 3.5-5.3 [facility] Comment on above: Performed By: #### 1 9123-9 #### BEVERLEY Poe ([id number]) [facility] ([facility] [place]) [address] [place] [address] 27666 Protein [Mass/Vol] 7.0 g/dL Normal 6.4-8.2 [facility] Comment on above: Performed By: #### 1 9123-9 #### BEVERLEY Poe ([id number]) [facility] ([facility] [place]) [address] [place] [address] 35557 Sodium [Moles/Vol] 147 mmol/L High 136-145 [facility] Comment on above: Performed By: #### 1 9123-9 #### BEVERLEY Poe ([id number]) [facility] ([facility] [place]) [address] [place] [address] 36212 Urea nitrogen [Mass/Vol] 19 mg/dL Normal 6-23 [facility] Comment on above: Performed By: #### 1 9123-9 #### BEVERLEY Poe ([id number]) [facility] ([facility] [place]) [address] [place] [address] 35130 ECG 12-LEADon 10-28-2023 ECG 12-LEAD Ventricular Rate 76 Atrial Rate 76 P-R Interval 156 QRS Duration 132 Q-T Interval 428 QTC Calculation(Bazett) 481 P [place] 57 R [place] -49 T [place] 51 QRS Count 12 Q Onset 210 [...] [place] ([id number]) on 11/11/2023 6:42:46 PM Normal [facility] Prealbuminon 10-28-2023 Prealbumin [Mass/Vol] 18.4 mg/dL Normal 18.0-40.0 [facility] Comment on above: Performed By: #### 1 9123-9 #### BEVERLEY Poe ([id number]) [facility] ([facility] [place]) [address] [place] [address] Staphylococcus aureus.methic illin resistant isolateon 10-28-2023 MRSA isol Org specific cx Ql (Nose) Test: Staphylococcus aureus/MRSA colonization, Culture Specimen Source: Anterior Nares Specimen Type: Swab Specimen Date: 10/28/2023 9:56 AM Result Date: 10/29/2023 1:28 PM Result Status: Final result Abnormal: No Resulting Lab: [facility] [address] [place] [address] CULTURE No Staphylococcus aureus isolated [facility] Comment on above: Performed By: #### 1 9123-9 #### BEVERLEY Poe ([id number]) [facility] ([facility] [place]) [address] [place] [address] Basophil percentageOrdered B y: Jonathanfausto Dillard on 10-11-2023 Bilirubin [Mass/Vol] 0.30 mg/dL 0.20-1.00 [facility] Comment on above: For patients on eltr ombopag therapy, use of Dimension [place] TBIL is not recommended. Chloride [Moles/Vol] 101 mmol/L 98-107 [facility] Glucose [Mass/Vol] 102 mg/dL 74-106 [facility] Comment on above: Fasting Glucose resu lt from 100 to 125 mg/dL suggests IMPAIRED HOMEOSTASIS per A.D.A. criteria. Potassium [Moles/Vol] 3.7 mmol/L 3.5-5.1 [facility] Protein [Mass/Vol] 6.4 g/dL 6.4-8.2 [facility] Sodium [Moles/Vol] 144 mmol/L 136-145 [facility] WBC (Bld) [#/Vol] 3.3 10*3/uL 4.4-11.0 [facility] Blood erythrocytes count (nu mber/volume)Ordered By: Jonathan Dillard on 10-11-2023 RBC (Bld) [#/Vol] 2.77 10*6/uL 4.2-5.4 [facility] Blood hemoglobin measurement (mass/volume)Ordered By: Jonathan Dillard on 10-11-2023 Hemoglobin (Bld) [Mass/Vol] 8.2 g/dL 12.0-15.0 [facility] Blood platelet mean volumeOr dered By: Jonathan Dillard on 10-11-2023 Platelet mean volume (Bld) [Entitic vol] 8.8 fL 6.2-12.0 [facility] Determination of erythrocyte mean corpuscular volume (MCV)Ordered By: Jonathan Dillard on 10-11-2023 MCV (RBC) [Entitic vol] 105.8 fL 81-99 [facility] Hematocrit Auto (Bld) [Volum e fraction]Ordered By: Jonathan Dillard on 10-11-2023 Hematocrit (Bld) [Volume fraction] 29.3 % 37-47 [facility] Laboratory - Chemistry and C hemistry - challengeOrdered By: Jonathan Dillard on 10-11-2023 ALP [Catalytic activity/Vol] 51 U/L 45-117 [facility] ALT [Catalytic activity/Vol] 18 U/L 13-56 [facility] CO2 [Moles/Vol] 41.0 mmol/L 21.0-32.0 [facility] Globulin (S) [Mass/Vol] 4.1 g/dL 2.2-4.2 [facility] Urea nitrogen/Creatinine [Mass ratio] 36.1 mg/mg 10-20 [facility] Laboratory - Hematology and Cell countsOrdered By: Jonathan Dillard on 10-11-2023 Erythrocyte distribution width (RBC) [Entitic vol] 54.5 fL 35.1-43.9 [facility] Erythrocyte distribution width (RBC) [Ratio] 14.0 % 11.6-14.6 [facility] MCH (RBC) [Entitic mass] 29.6 pg 27.0-32.0 [facility] MCHC Auto (RBC) [Mass/Vol]Or dered By: Jonathan Dillard on 10-11-2023 MCHC (RBC) [Mass/Vol] 28.0 g/dL 32-36 [facility] No Panel InformationOrdered By: Jonathan Dillard on 10-11-2023 Estimated GFR (MDRD) Amer 156 mL/min >60 [facility] Comment on above: GFR Calc Estimated GFR (MDRD) Non-Af Amer 129 mL/min >60 [facility] Comment on above: Non- GFR Calc Platelets bldOrdered By: Mervat Dillard on 10-11-2023 Platelets (Bld) [#/Vol] 116 10*3/uL 150-450 [facility] Serum or plasma albumin celina urement (mass/volume)Ordered By: Jonathan Dillard on 10-11-2023 Albumin [Mass/Vol] 2.3 g/dL 3.2-5.0 [facility] Serum or plasma albumin/glob ulin mass ratioOrdered By: Jonathan Dillard on 10-11-2023 Albumin/Globulin [Mass ratio] 0.6 {ratio} 0.9-2.4 [facility] Serum or plasma calcium celina urement (mass/volume)Ordered By: Jonathan Dillard on 10-11-2023 Calcium [Mass/Vol] 7.8 mg/dL 8.5-10.1 [facility] Serum or plasma creatinine m easurement (mass/volume)Ordered By: Jonathan Dillard on 10-11-2023 Creatinine [Mass/Vol] 0.50 mg/dL 0.55-1.02 [facility] Comment on above: The validity of the calculated GFR & GFRAA in patients over 70 years has not been determined. Clinical correlation is essential. Serum or plasma urea nitroge n measurement (mass/volume)Ordered By: Jonathan Dillard on 10-11-2023 Urea nitrogen [Mass/Vol] 18 mg/dL 7-18 [facility] Thin prep Papanicolaou smear with manual screeningOrdered By: Jonathan Dillard on 10-11-2023 Thin prep Papanicolaou smear with manual screening 14 U/L 15-37 [facility] Thin prep Papanicolaou smear with manual screening 2 5-15 [facility] Laboratory - Chemistry and C hemistry - challengeOrdered By: Jonathan Dillard on 10-04-2023 Cobalamin (Vitamin B12) [Mass/Vol] 926 pg/mL 211-911 [facility] Basophil percentageOrdered B y: Jonathan Dillard on 10-03-2023 Bilirubin [Mass/Vol] 0.40 mg/dL 0.20-1.00 [facility] Comment on above: For patients on eltr ombopag therapy, use of Dimension [place] TBIL is not recommended. Chloride [Moles/Vol] 103 mmol/L 98-107 [facility] Cholesterol [Mass/Vol] 112 mg/dL <200 [facility] Comment on above: <200 mg/dL Desirable 200-240 mg/dL Borderline >240 mg/dL High Risk Glucose [Mass/Vol] 133 mg/dL 74-106 [facility] Comment on above: Fasting Glucose resu lt greater than or equal to 126 mg/dL suggests DIABETES MELLITUS per A.D.A. criteria. Potassium [Moles/Vol] 3.8 mmol/L 3.5-5.1 [facility] Protein [Mass/Vol] 6.2 g/dL 6.4-8.2 [facility] Sodium [Moles/Vol] 144 mmol/L 136-145 [facility] Triglyceride [Mass/Vol] 156 mg/dL <199 [facility] Comment on above: The drugs N-Acetylcy steine and Metamizole may falsely depress this assay.Serum Triglycerides Reference Interval Normal <150 mg/dL Borderline high 150 - 199 mg/dL High 200 - 499 mg/dL Very High > or = 500 mg/dL WBC (Bld) [#/Vol] 3.6 10*3/uL 4.4-11.0 [facility] Blood erythrocytes count (nu mber/volume)Ordered By: Jonathan Dillard on 10-03-2023 RBC (Bld) [#/Vol] 2.77 10*6/uL 4.2-5.4 [facility] Blood hemoglobin measurement (mass/volume)Ordered By: Jonathan Dillard on 10-03-2023 Hemoglobin (Bld) [Mass/Vol] 8.2 g/dL 12.0-15.0 [facility] Blood platelet mean volumeOr dered By: Jonathan Dillard on 10-03-2023 Platelet mean volume (Bld) [Entitic vol] 9.3 fL 6.2-12.0 [facility] Determination of erythrocyte mean corpuscular volume (MCV)Ordered By: Jonathan Dillard on 10-03-2023 MCV (RBC) [Entitic vol] 104.0 fL 81-99 [facility] Hematocrit Auto (Bld) [Volum e fraction]Ordered By: Jonathan Dillard on 10-03-2023 Hematocrit (Bld) [Volume fraction] 28.8 % 37-47 [facility] Laboratory - Chemistry and C hemistry - challengeOrdered By: Jonathan Dillard on 10-03-2023 ALP [Catalytic activity/Vol] 42 U/L 45-117 [facility] ALT [Catalytic activity/Vol] 16 U/L 13-56 [facility] CO2 [Moles/Vol] 40.0 mmol/L 21.0-32.0 [facility] Globulin (S) [Mass/Vol] 3.9 g/dL 2.2-4.2 [facility] Urea nitrogen/Creatinine [Mass ratio] 35.6 mg/mg 10-20 [facility] Laboratory - Hematology and Cell countsOrdered By: Jonathan Dillard on 10-03-2023 Erythrocyte distribution width (RBC) [Entitic vol] 54.0 fL 35.1-43.9 [facility] Erythrocyte distribution width (RBC) [Ratio] 14.2 % 11.6-14.6 [facility] MCH (RBC) [Entitic mass] 29.6 pg 27.0-32.0 [facility] MCHC Auto (RBC) [Mass/Vol]Or dered By: Jonathan Dillard on 10-03-2023 MCHC (RBC) [Mass/Vol] 28.5 g/dL 32-36 [facility] No Panel InformationOrdered By: Jonathan Dillard on 10-03-2023 Estimated GFR (MDRD) Amer 153 mL/min >60 [facility] Comment on above: GFR Calc Estimated GFR (MDRD) Non-Af Amer 127 mL/min >60 [facility] Comment on above: Non- GFR Calc Platelets bldOrdered By: Mervat Dillard on 10-03-2023 Platelets (Bld) [#/Vol] 104 10*3/uL 150-450 [facility] Serum or plasma albumin celina urement (mass/volume)Ordered By: Jonathan Dillard on 10-03-2023 Albumin [Mass/Vol] 2.3 g/dL 3.2-5.0 [facility] Serum or plasma albumin/glob ulin mass ratioOrdered By: Jonathan Dillard on 10-03-2023 Albumin/Globulin [Mass ratio] 0.6 {ratio} 0.9-2.4 [facility] Serum or plasma calcium celina urement (mass/volume)Ordered By: Jonathan Dillard on 10-03-2023 Calcium [Mass/Vol] 8.4 mg/dL 8.5-10.1 [facility] Serum or plasma cholesterol in HDL measurement (mass/volume)Ordered By: Jonathan Dillard on 10-03-2023 Cholesterol in HDL [Mass/Vol] 41 mg/dL >40 [facility] Comment on above: The drugs N-Acetylcy steine and Metamizole may falsely depress this assay. Reference Range HDL <40 mg/dL Low HDL Cholesterol HDL >or= 60 mg/dL High HDL Cholesterol Serum or plasma cholesterol in VLDL measurement (mass/volume)Ordered By: Jonathan Dillard on 10-03-2023 Cholesterol in VLDL [Mass/Vol] 31 mg/dL 5-40 [facility] Serum or plasma creatinine m easurement (mass/volume)Ordered By: Jonathan Dillard on 10-03-2023 Creatinine [Mass/Vol] 0.51 mg/dL 0.55-1.02 [facility] Comment on above: The validity of the calculated GFR & GFRAA in patients over 70 years has not been determined. Clinical correlation is essential. Serum or plasma low density lipoprotein (LDL) cholesterol measurement (mass/volume)Ordered By: Jonathan Dillard on 10-03-2023 Cholesterol in LDL [Mass/Vol] 40 mg/dL 0-130 [facility] Serum or plasma urea nitroge n measurement (mass/volume)Ordered By: Jonathan Dillard on 10-03-2023 Urea nitrogen [Mass/Vol] 18 mg/dL 7-18 [facility] Thin prep Papanicolaou smear with manual screeningOrdered By: Jonathan Dillard on 10-03-2023 Thin prep Papanicolaou smear with manual screening 15 U/L 15-37 [facility] Thin prep Papanicolaou smear with manual screening 1 5-15 [facility] Whole blood hemoglobin A1c/t otal hemoglobin ratio (mass fraction)Ordered By: Jonathan Dillard on 10-03-2023 HbA1c (Bld) [Mass fraction] % 3.8-5.6 [facility] Comment on above: Normal < 5.7 % [...] [facility] RBC (Bld) [#/Vol] 2.79 10*6/uL [facility] WBC (Bld) [#/Vol] 3.5 10*3/uL [facility] Erythrocyte distribution width (RBC) [Ratio] 14.0 % Normal 11.5-14.5 [facility] Comment on above: Performed By: #### 1 9123-9 #### BEVERLEY Poe ([id number]) [facility] ([facility] [place]) [address] [place] [address]48 Hematocrit (Bld) [Volume fraction] 28.8 % Low 36.0-46.0 [facility] Comment on above: Performed By: #### 1 9123-9 #### BEVERLEY Poe ([id number]) [facility] ([facility] [place]) [address] [place] [address] 55870 Hemoglobin (Bld) [Mass/Vol] 8.4 g/dL Low 12.0-16.0 [facility] Comment on above: Performed By: #### 1 9123-9 #### BEVERLEY Poe ([id number]) [facility] ([facility] [place]) [address] [place] [address] 29280 MCH (RBC) [Entitic mass] 30.1 pg Normal 26.0-34.0 [facility] Comment on above: Performed By: #### 1 9123-9 #### BEVERLEY Poe ([id number]) [facility] ([facility] [place]) [address] [place] [address] 50599 MCHC (RBC) [Mass/Vol] 29.2 g/dL Low 32.0-36.0 [facility] Comment on above: Performed By: #### 1 9123-9 #### BEVERLEY Poe ([id number]) [facility] ([facility] [place]) [address] [place] [address] 43712 MCV (RBC) [Entitic vol] 103 fL High 80-100 [facility] Comment on above: Performed By: #### 1 9123-9 #### BEVERLEY Poe ([id number]) [facility] ([facility] [place]) [address] [place] [address] Nucleated RBC/100 WBC (Bld) [Ratio] 0.0 /100 WBCs Normal 0.0-0.0 [facility] Comment on above: Performed By: #### 1 9123-9 #### BEVERLEY Poe ([id number]) [facility] ([facility] [place]) [address] [place] [address] Platelets (Bld) [#/Vol] 113 x10*3/uL Low 150-450 [facility] Comment on above: Performed By: #### 1 9123-9 #### BEVERLEY Poe ([id number]) [facility] ([facility] [place]) [id number] [place] [address] 89818 RBC (Bld) [#/Vol] 2.79 x10*6/uL Low 4.00-5.20 [facility] [place] Comment on above: Performed By: #### 1 9123-9 #### BEVERLEY Poe ([id number]) [facility] ([facility] [place]) [id number] [place] [address] 56949 WBC (Bld) [#/Vol] 3.5 x10*3/uL Low 4.4-11.3 [facility] Comment on above: Performed By: #### 1 9123-9 #### BEVERLEY Poe ([id number]) [facility] ([facility] [place]) [id number] [place] [address] 38841 CTA Heart and Coronary arter ies WO and W contrast Jack 09-28-2023 [facility] Work Phone: CTA Heart and Coronary arter ies WO and W contrast IVOrdered By: Yair Pham on 09-28-2023 [facility] Work Phone: Magnesiumon 09-28-2023 Magnesium [Mass/Vol] 2.13 mg/dL Normal 1.60-2.40 [facility] [place] Comment on above: Performed By: #### 1 9123-9 #### BEVERLEY Poe ([id number]) [facility] ([facility] [place] [address] [place] [address] Renal function 2000 panelon 09-28-2023 Albumin BCP dye [Mass/Vol] 2.9 g/dL Low 3.4-5.0 [facility] Comment on above: Performed By: #### 1 9123-9 #### BEVERLEY Poe ([id number]) [facility] ([facility] [place] [address] [place] [address] Anion gap [Moles/Vol] 11 mmol/L Normal 10-20 [facility] Comment on above: Performed By: #### 1 9123-9 #### BEVERLEY Poe ([id number]) [facility] ([facility] [place]) [id number] [place] [address] 86464 Calcium [Mass/Vol] 8.9 mg/dL Normal 8.6-10.6 [facility] Comment on above: Performed By: #### 1 9123-9 #### BEVERLEY Poe ([id number]) [facility] ([facility] [place]) [id number] [place] [address] 06112 Chloride [Moles/Vol] 100 mmol/L Normal 98-107 [facility] [place] Comment on above: Performed By: #### 1 9123-9 #### BEVERLEY Poe ([id number]) [facility] ([facility] [place]) [id number] [place] [address] 34059 CO2 [Moles/Vol] 40 mmol/L Critically high 21-32 [facility] [place] Comment on above: Performed By: #### 1 9123-9 #### BEVERLEY Poe ([id number]) [facility] ([facility] [place] [address] [place] [address] Creatinine [Mass/Vol] 0.44 mg/dL Low 0.50-1.05 [facility] Comment on above: Performed By: #### 1 9123-9 #### BEVERLEY Poe ([id number]) [facility] ([facility] [place]) [id number] [place] [address] GFR/1.73 sq M.predicted MDRD (S/P/Bld) [Vol rate/Area] mL/min/{1.73_m2} Normal >60 [facility] Comment on above: Result Comment: Calc ulations of estimated GFR are performed using the 2020 CKD-EPI Study Refit equation without the race variable for the IDMS-Traceable creatinine methods. https://jasn.asnjournals.org/content//ASN.27921 90473 Performed By: #### 1 9123-9 #### BEVERLEY Poe ([id number]) [facility] ([facility] [place]) [address] [place] [address] Glucose [Mass/Vol] 143 mg/dL High 74-99 [facility] Comment on above: Performed By: #### 1 9123-9 #### BEVERLEY Poe ([id number]) [facility] ([facility] [place] [address] [place] [address] Phosphate [Mass/Vol] 2.8 mg/dL Normal 2.5-4.9 [facility] [place] Comment on above: Result Comment: The performance characteristics of phosphorus testing in heparinized plasma have been validated by the individual laboratory site where testing is performed. Testing on heparinized plasma is not approved by the FDA; however, such approval is not necessary. Performed By: #### 1 9123-9 #### BEVERLEY Poe ([id number]) [facility] ([facility] [place]) [address] [place] [address] Potassium [Moles/Vol] 3.8 mmol/L Normal 3.5-5.3 [facility] Comment on above: Performed By: #### 1 9123-9 #### BEVERLEY Poe ([id number]) [facility] ([facility] [place] [address] [place] [address] Sodium [Moles/Vol] 147 mmol/L High 136-145 [facility] Comment on above: Performed By: #### 1 9123-9 #### BEVERLEY Poe ([id number]) [facility] ([facility] [place] [address] [place] [address] Urea nitrogen [Mass/Vol] 11 mg/dL Normal 6-23 [facility] Comment on above: Performed By: #### 1 9123-9 #### BEVERLEY Poe ([id number]) [facility] ([facility] [place]) [address] [place] [address]51 SARS coronavirus 2 RNAon SARS-CoV-2 (COVID-19) RNA ISA+probe Ql (Resp) Not detected Normal Not Detected [facility] Comment on above: Order Comment: This [...] and has been validated for use at [facility]. Negative results do not preclude COVID-19 infections and should not be used as the sole basis for diagnosis, treatment, or other management decisions. Performed By: #### 1 9123-9 #### BEVERLEY Poe ([id number]) [facility] ([facility] [place]) [address] [place] [address] SARS-CoV-2 (COVID-19) RNA NA A+probe Ql (Resp)on 09-28-2023 Interpretation and review of laboratory results Normal [facility] SARS-CoV-2 RT PCRon 09-28-20 SARS-CoV-2 (COVID-19) [...] [facility] Plate[facility] (Bld) [#/Vol] 115 10*3/uL Low [facility] RBC (Bld) [#/Vol] 2.69 10*6/uL [facility] WBC (Bld) [#/Vol] 3.2 10*3/uL [facility] Erythrocyte distribution width (RBC) [Ratio] 14.3 % Normal 11.5-14.5 [facility] Comment on above: Performed By: #### 2 341-6 #### BEVERLEY Poe ([id number]) [facility] ([facility] [place]) [address] [place] [address] 35682 Hematocrit (Bld) [Volume fraction] 28.0 % Low 36.0-46.0 [facility] Comment on above: Performed By: #### 2 341-6 #### BEVERLEY Poe ([id number]) [facility] ([facility] [place]) [address] [place] [address]8764 Hemoglobin (Bld) [Mass/Vol] 8.0 g/dL Low 12.0-16.0 [facility] Comment on above: Performed By: #### 2 341-6 #### BEVERLEY Poe ([id number]) [facility] ([facility] [place]) [address] [place] [address]10 MCH (RBC) [Entitic mass] 29.7 pg Normal 26.0-34.0 [facility] Comment on above: Performed By: #### 2 341-6 #### BEVERLEY Poe ([id number]) [facility] ([facility] [place]) [address] [place] [address] MCHC (RBC) [Mass/Vol] 28.6 g/dL Low 32.0-36.0 [facility] Comment on above: Performed By: #### 2 341-6 #### BEVERLEY Poe ([id number]) [facility] ([facility] [place]) [address] [place] [address] MCV (RBC) [Entitic vol] 104 fL High 80-100 [facility] Comment on above: Performed By: #### 2 341-6 #### BEVERLEY Poe ([id number]) [facility] ([facility] [place]) [address] [place] [address]108 Nucleated RBC/100 WBC (Bld) [Ratio] 0.0 /100 WBCs Normal 0.0-0.0 [facility] Comment on above: Performed By: #### 2 341-6 #### BEVERLEY Poe ([id number]) [facility] ([facility] [place]) [address] [place] [address] Platelets (Bld) [#/Vol] 115 x10*3/uL Low 150-450 [facility] Comment on above: Performed By: #### 2 341-6 #### BEVERLEY Poe ([id number]) [facility] ([facility] [place]) [address] [place] [address] RBC (Bld) [#/Vol] 2.69 x10*6/uL Low 4.00-5.20 [facility] [place] Comment on above: Performed By: #### 2 341-6 #### BEVERLEY Poe ([id number]) [facility] ([facility] [place]) [address] [place] [address] WBC (Bld) [#/Vol] 3.2 x10*3/uL Low 4.4-11.3 [facility] Comment on above: Performed By: #### 2 341-6 #### BEVERLEY Poe ([id number]) [facility] ([facility] [place]) [address] [place] [address] Cobalaminson 09-27-2023 Cobalamin (Vitamin B12) [Mass/Vol] 411 pg/mL Normal 211-911 [facility] Comment on above: Performed By: #### 1 9123-9 #### BEVERLEY Poe ([id number]) [facility] ([facility] [place]) [address] [place] [address] Electrocardiogram, 12-lead P RN ACS symptomsOrdered By: Simon Piedra on 09-27-2023 Atrial Rate 104 BPM [facility] Work Phone: [phone] [place] 67 degrees [facility] Work Phone: [phone] P Offset 193 ms [facility] Work Phone: [phone] P Onset 137 ms [facility] Work Phone: [phone] ID Interval 150 ms [facility] Work Phone: [phone] Q Onset 212 ms [facility] Work Phone: [phone] QRS Count 17 beats [facility] Work Phone: [phone] QRS Duration 136 ms [facility] Work Phone: [phone] QT Interval 352 ms [facility] Work Phone: [phone] QTC Calculation(Bazett) 462 [facility] Work Phone: [phone] QTC Fredericia 422 ms [facility] Work Phone: [phone] R [place] -54 degrees [facility] Work Phone: [phone] T [place] 70 degrees [facility] Work Phone: [phone] T Offset 388 ms [facility] Work Phone: [phone] Ventricular Rate 104 BPM [facility] Work Phone: [phone] [facility] Work Phone: [phone] Electrocardiogram, 12-lead P RN ACS symptomson 09-27-2023 [facility] Work Phone: Folateon 09-27-2023 Folate [Mass/Vol] 16.2 ng/mL Normal >5.0 [facility] Comment on above: Order Comment: Low < 3.4Borderline 3.4-5.0Normal >5.0Patients receiving more than 5 mg/day of biotin may have interference in test results. A sample should be taken no sooner than eight hours after previous dose. Contact the testing laboratory for additional information. Performed By: #### 1 9123-9 #### BEVERLEY Poe ([id number]) [facility] ([facility] [place]) [address] [place] [address]22 Magnesiumon 09-27-2023 Magnesium [Mass/Vol] 2.13 mg/dL 1.60 - 2.40 mg/dL [facility] Magnesium [Mass/Vol] 2.13 mg/dL Normal 1.60-2.40 [facility] [place] Comment on above: Performed By: #### 2 341-6 #### BEVERLEY Poe ([id number]) [facility] ([facility] [place]) [address] [place] [address] 59990 Magnesium [Mass/Vol]on 09-27 Interpretation and review of [...] BCP dye [Mass/Vol] 2.8 g/dL Low 3.4-5.0 [facility] Comment on above: Performed By: #### 2 341-6 #### BEVERLEY Poe ([id number]) [facility] ([facility] [place]) [address] [place] [address] 67781 Anion gap [Moles/Vol] 7 mmol/L Low 10-20 [facility] Comment on above: Performed By: #### 2 341-6 #### BEVERLEY oPe ([id number]) [facility] ([facility] [place]) [address] [place] [address] 76448 Calcium [Mass/Vol] 8.7 mg/dL Normal 8.6-10.6 [facility] Comment on above: Performed By: #### 2 341-6 #### BEVERLEY Poe ([id number]) [facility] ([facility] [place]) [address] [place] [address] 54444 Chloride [Moles/Vol] 102 mmol/L Normal 98-107 [facility] [place] Comment on above: Performed By: #### 2 341-6 #### BEVERLEY Poe ([id number]) [facility] ([facility] [place]) [address] [place] [address] 07057 CO2 [Moles/Vol] 42 mmol/L Critically high 21-32 [facility] [place] Comment on above: Performed By: #### 2 341-6 #### BEVERLEY Poe ([id number]) [facility] ([facility] [place]) [address] [place] [address] Creatinine [Mass/Vol] 0.41 mg/dL Low 0.50-1.05 [facility] Comment on above: Performed By: #### 2 341-6 #### BEVERLEY Poe ([id number]) [facility] ([facility] [place]) [address] [place] [address] GFR/1.73 sq M.predicted MDRD (S/P/Bld) [Vol rate/Area] mL/min/{1.73_m2} Normal >60 [facility] Comment on above: Result Comment: Calc ulations of estimated GFR are performed using the 2020 CKD-EPI Study Refit equation without the race variable for the IDMS-Traceable creatinine methods. https://jasn.asnjournals.org/content/early/ASN.90051 52034 Performed By: #### 2 341-6 #### BEVERLEY Poe ([id number]) [facility] ([facility] [place]) [address] [place] [address] Glucose [Mass/Vol] 142 mg/dL High 74-99 [facility] Comment on above: Performed By: #### 2 341-6 #### BEVERLEY Poe ([id number]) [facility] ([facility] [place]) [address] [place] [address] Phosphate [Mass/Vol] 3.2 mg/dL Normal 2.5-4.9 [facility] Comment on above: Result Comment: The performance characteristics of phosphorus testing in heparinized plasma have been validated by the individual laboratory site where testing is performed. Testing on heparinized plasma is not approved by the FDA; however, such approval is not necessary. Performed By: #### 2 341-6 #### BEVERLEY Poe ([id number]) [facility] ([facility] [place]) [address] [place] [address] Potassium [Moles/Vol] 3.9 mmol/L Normal 3.5-5.3 [facility] Comment on above: Performed By: #### 2 341-6 #### BEVERLEY Poe ([id number]) [facility] ([facility] [place]) [address] [place] [address] Sodium [Moles/Vol] 147 mmol/L High 136-145 [facility] Comment on above: Performed By: #### 2 341-6 #### BEVERLEY Poe ([id number]) [facility] ([facility] [place]) [address] [place] [address] Urea nitrogen [Mass/Vol] 12 mg/dL Normal 6- [facility] Comment on above: Performed By: #### 2 341-6 #### BEVERLEY Poe ([id number]) [facility] ([facility] [place]) [address] [place] [address] 54735 SARS coronavirus 2 RNAon SARS-CoV-2 (COVID-19) RNA ISA+probe Ql (Resp) Not detected Normal Not Detected [facility] Comment on above: Order Comment: This [...] and has been validated for use at [facility]. Negative results do not preclude COVID-19 infections and should not be used as the sole basis for diagnosis, treatment, or other management decisions. Performed By: #### 2 341-6 #### BEVERLEY Poe ([id number]) [facility] ([facility] [place]) [address] [place] [address] 69705 SARS-CoV-2 (COVID-19) RNA NA A+probe Ql (Resp)on 09-27-2023 Interpretation and review of laboratory results Normal [facility] SARS-CoV-2 RT PCRon 09-27-20 SARS-CoV-2 (COVID-19) [...] [facility] Platelets (Bld) [#/Vol] 107 10*3/uL [facility] RBC (Bld) [#/Vol] 2.54 10*6/uL [facility] WBC (Bld) [#/Vol] 4.1 10*3/uL [facility] Erythrocyte distribution width (RBC) [Ratio] 14.3 % Normal 11.5-14.5 [facility] Comment on above: Performed By: #### 2 341-6 #### BEVERLEY Poe ([id number]) [facility] ([facility] [place]) [address] [place] [address] 8[address]73 Hematocrit (Bld) [Volume fraction] 26.6 % Low 36.0-46.0 [facility] Comment on above: Performed By: #### 2 341-6 #### BEVERLEY Poe ([id number]) [facility] ([facility] [place]) [address] [place] [address] 27233 Hemoglobin (Bld) [Mass/Vol] 7.6 g/dL Low 12.0-16.0 [facility] Comment on above: Performed By: #### 2 341-6 #### BEVERLEY Poe ([id number]) [facility] ([facility] [place]) [address] [place] [address] 95914 MCH (RBC) [Entitic mass] 29.9 pg Normal 26.0-34.0 [facility] Comment on above: Performed By: #### 2 341-6 #### BEVERLEY Poe ([id number]) [facility] ([facility] [place]) [address] [place] [address] 63670 MCHC (RBC) [Mass/Vol] 28.6 g/dL Low 32.0-36.0 [facility] Comment on above: Performed By: #### 2 341-6 #### BEVERLEY Poe ([id number]) [facility] ([facility] [place]) [address] [place] [address] 58735 MCV (RBC) [Entitic vol] 105 fL High 80-100 [facility] Comment on above: Performed By: #### 2 341-6 #### BEVERLEY Poe ([id number]) [facility] ([facility] [place]) [address] [place] [address] 10182 Nucleated RBC/100 WBC (Bld) [Ratio] 0.0 /100 WBCs Normal 0.0-0.0 [facility] Comment on above: Performed By: #### 2 341-6 #### BEVERLEY Poe ([id number]) [facility] ([facility] [place]) [address] [place] [address] 48007 Platelets (Bld) [#/Vol] 107 x10*3/uL Low 150-450 [facility] Comment on above: Performed By: #### 2 341-6 #### BEVERLEY Poe ([id number]) [facility] ([facility] [place]) [address] [place] [address] 11494 RBC (Bld) [#/Vol] 2.54 x10*6/uL Low 4.00-5.20 [facility] [place] Comment on above: Performed By: #### 2 341-6 #### BEVERLEY Poe ([id number]) [facility] ([facility] [place]) [address] [place] [address] WBC (Bld) [#/Vol] 4.1 x10*3/uL Low 4.4-11.3 [facility] Comment on above: Performed By: #### 2 341-6 #### BEVERLEY Poe ([id number]) [facility] ([facility] [place]) [address] [place], [place] [address] CTA Heart and Coronary arter ies WO and W contrast Jack 09-26-2023 Radiology Study observation (narrative) [facility] Work Phone: [phone] ECG 12 LeadOrdered By: Monse Piedra on 09-26-2023 Atrial Rate 96 BPM [facility] Work Phone: [phone] P [place] 61 degrees [facility] Work Phone: [phone] P Offset 197 ms [facility] Work Phone: [phone] P Onset 133 ms [facility] Work Phone: [phone] ID Interval 156 ms [facility] Work Phone: [phone] Q Onset 211 ms [facility] Work Phone: [phone] QRS Count 16 beats [facility] Work Phone: [phone] QRS Duration 136 ms [facility] Work Phone: [phone] QT Interval 380 ms [facility] Work Phone: [phone] QTC Calculation(Bazett) 480 [facility] Work Phone: [phone] QTC Fredericia 444 [facility] Work Phone: [phone] R [place] -49 degrees [facility] Work Phone: [phone] T [place] 77 degrees [facility] Work Phone: [phone] T Offset 401 ms [facility] Work Phone: [phone] Ventricular Rate 96 BPM [facility] Work Phone: [facility] Work Phone: ECG 12 Leadon 09-26-2023 MUSE [facility] Work Phone: Magnesiumon 09-26-2023 Magnesium [Mass/Vol] 2.17 mg/dL 1.60 - 2.40 mg/dL [facility] Magnesium [Mass/Vol] 2.17 mg/dL Normal 1.60-2.40 [facility] [place] Comment on above: Performed By: #### 2 341-6 #### BEVERLEY Poe ([id number]) [facility] ([facility] [place]) [address] [place] [address] Magnesium [Mass/Vol]on 09-26 Interpretation and review of [...] BCP dye [Mass/Vol] 2.8 g/dL Low 3.4-5.0 [facility] Comment on above: Performed By: #### 2 341-6 #### BEVERLEY Poe ([id number]) [facility] ([facility] [place] [address] [place] [address] Anion gap [Moles/Vol] mmol/L Low 10-20 [facility] Comment on above: Performed By: #### 2 341-6 #### BEVERLEY Poe ([id number]) [facility] ([facility] [place]) [address] [place] [address] 02834 Calcium [Mass/Vol] 8.6 mg/dL Normal 8.6-10.6 [facility] Comment on above: Performed By: #### 2 341-6 #### BEVERLEY Poe ([id number]) [facility] ([facility] [place]) [address] [place] [address] 49908 Chloride [Moles/Vol] 101 mmol/L Normal 98-107 [facility] Comment on above: Performed By: #### 2 341-6 #### BEVERLEY DODD L ([id number]) [facility] ([facility] [place]) [address] [place] [address] 95690 CO2 [Moles/Vol] 45 mmol/L Critically high 21-32 [facility] Comment on above: Performed By: #### 2 341-6 #### BEVERLEY DODD L ([id number]) [facility] ([facility] [place]) [address] [place] [address] 00835 Creatinine [Mass/Vol] 0.45 mg/dL Low 0.50-1.05 [facility] Comment on above: Performed By: #### 2 341-6 #### BEVERLEY Poe ([id number]) [facility] ([facility] [place]) [address] [place] [address] GFR/1.73 sq M.predicted MDRD (S/P/Bld) [Vol rate/Area] mL/min/{1.73_m2} Normal >60 [facility] Comment on above: Result Comment: Calc ulations of estimated GFR are performed using the 2020 CKD-EPI Study Refit equation without the race variable for the IDMS-Traceable creatinine methods. https://jasn.asnjournals.org/content//ASN.46356 43390 Performed By: #### 2 341-6 #### BEVERLEY Poe ([id number]) [facility] ([facility] [place] [address] [place] [address] Glucose [Mass/Vol] 111 mg/dL High 74-99 [facility] Comment on above: Performed By: #### 2 341-6 #### BEVERLEY Poe ([id number]) [facility] ([facility] [place] [address] [place] [address] Phosphate [Mass/Vol] 3.2 mg/dL Normal 2.5-4.9 [facility] Comment on above: Result Comment: The performance characteristics of phosphorus testing in heparinized plasma have been validated by the individual laboratory site where testing is performed. Testing on heparinized plasma is not approved by the FDA; however, such approval is not necessary. Performed By: #### 2 341-6 #### BEVERLEY Poe ([id number]) [facility] ([facility] [place] [address] [place] [address] Potassium [Moles/Vol] 3.8 mmol/L Normal 3.5-5.3 [facility] Comment on above: Performed By: #### 2 341-6 #### BEVERLEY Poe ([id number]) [facility] ([facility] [place] [address] [place] [address] Sodium [Moles/Vol] 147 mmol/L High 136-145 [facility] Comment on above: Performed By: #### 2 341-6 #### BEVERLEY Poe ([id number]) [facility] ([facility] [place]) [address] [place] [address] 82875 Urea nitrogen [Mass/Vol] 16 mg/dL Normal 6-23 [facility] Comment on above: Performed By: #### 2 341-6 #### BEVERLEY Poe ([id number]) [facility] ([facility] [place] [address] [place] [address] MR Pelvis WO and W contrast Jack [...] [facility] RBC (Bld) [#/Vol] 2.68 10*6/uL [facility] WBC (Bld) [#/Vol] 4.7 10*3/uL [facility] Erythrocyte distribution width (RBC) [Ratio] 14.5 % Normal 11.5-14.5 [facility] Comment on above: Performed By: #### 2 341-6 #### BEVERLEY Poe ([id number]) [facility] ([facility] [place]) [address] [place] [address]386 Hematocrit (Bld) [Volume fraction] 26.5 % Low 36.0-46.0 [facility] Comment on above: Performed By: #### 2 341-6 #### BEVERLEY Poe ([id number]) [facility] ([facility] [place]) [address] [place] [address] 57003 Hemoglobin (Bld) [Mass/Vol] 7.8 g/dL Low 12.0-16.0 [facility] Comment on above: Performed By: #### 2 341-6 #### BEVERLEY Poe ([id number]) [facility] ([facility] [place] [address] [place] [address] 14172 MCH (RBC) [Entitic mass] 29.1 pg Normal 26.0-34.0 [facility] Comment on above: Performed By: #### 2 341-6 #### BEVERLEY Poe ([id number]) [facility] ([facility] [place] [address] [place] [address] 01813 MCHC (RBC) [Mass/Vol] 29.4 g/dL Low 32.0-36.0 [facility] Comment on above: Performed By: #### 2 341-6 #### BEVERLEY Poe ([id number]) [facility] ([facility] [place]) [address] [place] [address] 47952 MCV (RBC) [Entitic vol] 99 fL Normal 80-100 [facility] Comment on above: Performed By: #### 2 341-6 #### BEVERLEY Poe ([id number]) [facility] ([facility] [place]) [address] [place] [address] 51427 Nucleated RBC/100 WBC (Bld) [Ratio] 0.0 /100 WBCs Normal 0.0-0.0 [facility] Comment on above: Performed By: #### 2 341-6 #### BEVERLEY Poe ([id number]) [facility] ([facility] [place]) [address] [place] [address] 60992 Platelets (Bld) [#/Vol] 96 x10*3/uL Low 150-450 [facility] Comment on above: Performed By: #### 2 341-6 #### BEVERLEY Poe ([id number]) [facility] ([facility] [place]) [id number] [place] [address] 52879 RBC (Bld) [#/Vol] 2.68 x10*6/uL Low 4.00-5.20 [facility] [place] Comment on above: Performed By: #### 2 341-6 #### BEVERLEY Poe ([id number]) [facility] ([facility] [place]) [address] [place] [address] 21463 WBC (Bld) [#/Vol] 4.7 x10*3/uL Normal 4.4-11.3 [facility] Comment on above: Performed By: #### 2 341-6 #### BEVERLEY Poe ([id number]) [facility] ([facility] [place]) [address] [place] [address] 89197 Glucose Test strip manual (B ld) [Mass/Vol]on 09-24-2023 Glucose [Mass/Vol] 135 mg/dL High 74 - 99 mg/dL [facility] Interpretation and review of laboratory results Abnormal [facility] Magnesiumon 09-24-2023 Magnesium [Mass/Vol] 2.01 mg/dL 1.60 - 2.40 mg/dL [facility] Magnesium [Mass/Vol] 2.01 mg/dL Normal 1.60-2.40 [facility] [place] Comment on above: Performed By: #### 2 341-6 #### BEVERLEY Poe ([id number]) [facility] ([facility] [place]) [address] [place] [address] 47171 Magnesium [Mass/Vol]on 09-24 Interpretation and review of [...] BCP dye [Mass/Vol] 2.8 g/dL Low 3.4-5.0 [facility] Comment on above: Performed By: #### 2 341-6 #### BEVERLEY Poe ([id number]) [facility] ([facility] [place] [address] [place] [address] 95895 Anion gap [Moles/Vol] 10 mmol/L Normal 10-20 [facility] Comment on above: Performed By: #### 2 341-6 #### BEVERLEY Poe ([id number]) [facility] ([facility] [place]) [address] [place] [address] 87289 Calcium [Mass/Vol] 8.4 mg/dL Low 8.6-10.6 [facility] Comment on above: Performed By: #### 2 341-6 #### BEVERLEY Poe ([id number]) [facility] ([facility] [place]) [address] [place] [address] Chloride [Moles/Vol] 98 mmol/L Normal 98-107 [facility] [place] Comment on above: Performed By: #### 2 341-6 #### BEVERLEY CARSONER L ([id number]) [facility] ([facility] [place]) [address] [place] [address] CO2 [Moles/Vol] 42 mmol/L Critically high 21-32 [facility] [place] Comment on above: Performed By: #### 2 341-6 #### BEVERLEY DODD L ([id number]) [facility] ([facility] [place]) [address] [place] [address] Creatinine [Mass/Vol] 0.42 mg/dL Low 0.50-1.05 [facility] Comment on above: Performed By: #### 2 341-6 #### BEVERLEY Poe ([id number]) [facility] ([facility] [place]) [address] [place] [address] GFR/1.73 sq M.predicted MDRD (S/P/Bld) [Vol rate/Area] mL/min/{1.73_m2} Normal >60 [facility] Comment on above: Result Comment: Calc ulations of estimated GFR are performed using the 2020 CKD-EPI Study Refit equation without the race variable for the IDMS-Traceable creatinine methods. https://jasn.asnjournals.org/content//ASN.58254 88601 Performed By: #### 2 341-6 #### BEVERLEY DODD L ([id number]) [facility] ([facility] [place]) [address] [place] [address] Glucose [Mass/Vol] 140 mg/dL High 74-99 [facility] Comment on above: Performed By: #### 2 341-6 #### BEVERLEY DODD L ([id number]) [facility] ([facility] [place]) [address] [place] [address] Phosphate [Mass/Vol] 3.3 mg/dL Normal 2.5-4.9 [facility] Comment on above: Result Comment: The performance characteristics of phosphorus testing in heparinized plasma have been validated by the individual laboratory site where testing is performed. Testing on heparinized plasma is not approved by the FDA; however, such approval is not necessary. Performed By: #### 2 341-6 #### BEVERLEY Poe ([id number]) [facility] ([facility] [place]) [address] [place] [address] Potassium [Moles/Vol] 4.0 mmol/L Normal 3.5-5.3 [facility] Comment on above: Performed By: #### 2 341-6 #### BEVERLEY Poe ([id number]) [facility] ([facility] [place]) [address] [place] [address] 01604 Sodium [Moles/Vol] 146 mmol/L High 136-145 [facility] Comment on above: Performed By: #### 2 341-6 #### BEVERLEY Poe ([id number]) [facility] ([facility] [place]) [address] [place] [address] 04769 Urea nitrogen [Mass/Vol] 10 mg/dL Normal 6-23 [facility] Comment on above: Performed By: #### 2 341-6 #### BEVERLEY Poe ([id number]) [facility] ([facility] [place]) [address] [place] [address] 98044 CBC panel Auto (Bld)on 09-23 Erythrocyte distribution [...] [facility] RBC (Bld) [#/Vol] 2.58 10*6/uL [facility] WBC (Bld) [#/Vol] 4.9 10*3/uL [facility] Erythrocyte distribution width (RBC) [Ratio] 14.4 % Normal 11.5-14.5 [facility] Comment on above: Performed By: #### 2 341-6 #### BEVERLEY Poe ([id number]) [facility] ([facility] [place]) [address] [place] [address] 24162 Hematocrit (Bld) [Volume fraction] 26.9 % Low 36.0-46.0 [facility] Comment on above: Performed By: #### 2 341-6 #### BEVERLEY Poe ([id number]) [facility] ([facility] [place]) [address] [place] [address] 08485 Hemoglobin (Bld) [Mass/Vol] 7.7 g/dL Low 12.0-16.0 [facility] Comment on above: Performed By: #### 2 341-6 #### BEVERLEY Poe ([id number]) [facility] ([facility] [place]) [address] [place] [address] 71773 MCH (RBC) [Entitic mass] 29.8 pg Normal 26.0-34.0 [facility] Comment on above: Performed By: #### 2 341-6 #### BEVERLEY Poe ([id number]) [facility] ([facility] [place]) [address] [place] [address] 67436 MCHC (RBC) [Mass/Vol] 28.6 g/dL Low 32.0-36.0 [facility] Comment on above: Performed By: #### 2 341-6 #### BEVERLEY Poe ([id number]) [facility] ([facility] [place]) [address] [place] [address] MCV (RBC) [Entitic vol] 104 fL High 80-100 [facility] Comment on above: Performed By: #### 2 341-6 #### BEVERLEY Poe ([id number]) [facility] ([facility] [place]) [address] [place] [address] 03641 Nucleated RBC/100 WBC (Bld) [Ratio] 0.0 /100 WBCs Normal 0.0-0.0 [facility] Comment on above: Performed By: #### 2 341-6 #### BEVERLEY Poe ([id number]) [facility] ([facility] [place]) [address] [place] [address] 45332 Platelets (Bld) [#/Vol] 93 x10*3/uL Low 150-450 [facility] Comment on above: Performed By: #### 2 341-6 #### BEVERLEY Poe ([id number]) [facility] ([facility] [place]) [address] [place] [address] 30571 RBC (Bld) [#/Vol] 2.58 x10*6/uL Low 4.00-5.20 [facility] Comment on above: Performed By: #### 2 341-6 #### BEVERLEY Poe ([id number]) [facility] ([facility] [place]) [address] [place] [address] 47159 WBC (Bld) [#/Vol] 4.9 x10*3/uL Normal 4.4-11.3 [facility] Comment on above: Performed By: #### 2 341-6 #### BEVERLEY Poe ([id number]) [facility] ([facility] [place]) [address] [place] [address] ANGIO CORONARY ART WITH H EARTFLOW IF SCORE >30%on 09-23-2023 CT ANGIO CORONARY ART WITH HEARTFLOW IF SCORE >30% Interpreted By: Yair Pham and Hima Mccarty STUDY: CT ANGIO CORONARY ART WITH HEARTFLOW IF SCORE >30%; 09/26/2023 1:38 pm INDICATION: Signs/Symptoms:Reduced EF; Pre Op optimization. COMPARISON: None. ACCESSION NUMBER(S): [id number] ORDERING CLINICIAN: KANG JULIAN TECHNIQUE: Using multi-detector [...] Yair Pham 09/28/2023 11:26 AM Dictation workstation: [id number] [facility] Carcinoembryonic Agon 2022 Carcinoembryonic Ag [Mass/Vol] ng/mL [facility] Comment on above: Order Comment: REF V ALUES NONSMOKERS 0-2.5 SMOKERS 0-5.0CEA testing is performed by chemiluminescent immunoassay using the Siemens AutoUncle. Values obtained with different analytic methods cannot [...] By: #### 2 341-6 #### BEVERLEY Poe ([id number]) [facility] ([facility] [place]) [address] [place] [address] 74644 Carcinoembryonic Ag [Mass/Vo l]on 09-23-2023 [facility] Carcinoembryonic Antigenon 1 11-23-2022 Carcinoembryonic Ag [Mass/Vol] ug/L ug/L [facility] Glucose Test strip manual (B ld) [Mass/Vol]on 09-23-2023 Glucose [Mass/Vol] 146 mg/dL High 74 - 99 mg/dL [facility] Interpretation and review of laboratory results Abnormal [facility] Glucose [Mass/Vol] 146 mg/dL High 74-99 [facility] Comment on above: Performed By: #### 2 341-6 #### BEVERLEY Poe ([id number]) [facility] ([facility] [place]) [address] [place] [address] 26858 Glucose [Mass/Vol] 161 mg/dL High 74 - 99 mg/dL [facility] Interpretation and review of laboratory results Abnormal [facility] Glucose [Mass/Vol] 161 mg/dL High 74-99 [facility] Comment on above: Performed By: #### 2 341-6 #### BEVERLEY Poe (33632) [facility] ([facility] [place]) [address] [place] [address] 62902 Magnesiumon 09-23-2023 Magnesium [Mass/Vol] 2.04 mg/dL 1.60 - 2.40 mg/dL [facility] Magnesium [Mass/Vol] 2.04 mg/dL Normal 1.60-2.40 [facility] Comment on above: Performed By: #### 2 341-6 #### BEVERLEY Poe (55489) [facility] ([facility] [place]) [address] [place], [place] [address] Magnesium [Mass/Vol]on 09-23 Interpretation and review of [...] BCP dye [Mass/Vol] 2.9 g/dL Low 3.4-5.0 [facility] Comment on above: Performed By: #### 2 341-6 #### BEVERLEY Poe ([id number]) [facility] ([facility] [place]) [address] [place] [address] Anion gap [Moles/Vol] 8 mmol/L Low 10-20 [facility] Comment on above: Performed By: #### 2 341-6 #### BEVERLEY DODD L ([id number]) [facility] ([facility] [place]) [address] [place] [address] Calcium [Mass/Vol] 8.7 mg/dL Normal 8.6-10.6 [facility] Comment on above: Performed By: #### 2 341-6 #### BEVERLEY DODD L ([id number]) [facility] ([facility] [place]) [address] [place] [address] 78647 Chloride [Moles/Vol] 100 mmol/L Normal 98-107 [facility] Comment on above: Performed By: #### 2 341-6 #### BEVERLEY DODD L ([id number]) [facility] ([facility] [place]) [address] [place] [address] 48116 CO2 [Moles/Vol] 40 mmol/L Critically high 21-32 [facility] Comment on above: Performed By: #### 2 341-6 #### BEVERLEY DODD L ([id number]) [facility] ([facility] [place]) [address] [place] [address] Creatinine [Mass/Vol] 0.42 mg/dL Low 0.50-1.05 [facility] Comment on above: Performed By: #### 2 341-6 #### BEVERLEY DODD L ([id number]) [facility] ([facility] [place]) [address] [place] [address] GFR/1.73 sq M.predicted MDRD (S/P/Bld) [Vol rate/Area] mL/min/{1.73_m2} Normal >60 [facility] Comment on above: Result Comment: Calc ulations of estimated GFR are performed using the 2020 CKD-EPI Study Refit equation without the race variable for the IDMS-Traceable creatinine methods. https://jasn.asnjournals.org/content//ASN.05653 63164 Performed By: #### 2 341-6 #### BEVERLEY Poe ([id number]) [facility] ([facility] [place]) [address] [place] [address] Glucose [Mass/Vol] 123 mg/dL High 74-99 [facility] Comment on above: Performed By: #### 2 341-6 #### BEVERLEY Poe ([id number]) [facility] ([facility] [place]) [address] [place] [address] Phosphate [Mass/Vol] 3.0 mg/dL Normal 2.5-4.9 [facility] Comment on above: Result Comment: The performance characteristics of phosphorus testing in heparinized plasma have been validated by the individual laboratory site where testing is performed. Testing on heparinized plasma is not approved by the FDA; however, such approval is not necessary. Performed By: #### 2 341-6 #### BEVERLEY Poe ([id number]) [facility] ([facility] [place]) [address] [place] [address] Potassium [Moles/Vol] 4.0 mmol/L Normal 3.5-5.3 [facility] Comment on above: Performed By: #### 2 341-6 #### BEVERLEY Poe (49753) [facility] ([facility] [place]) [address] [place] [address] 58643 Sodium [Moles/Vol] 144 mmol/L Normal 136-145 [facility] Comment on above: Performed By: #### 2 341-6 #### BEVERLEY Poe ([id number]) [facility] ([facility] [place]) [address] [place] [address] Urea nitrogen [Mass/Vol] 13 mg/dL Normal 6-23 [facility] Comment on above: Performed By: #### 2 341-6 #### BEVERLEY Poe ([id number]) [facility] ([facility] [place]) [address] [place] [address] Bacteria identified Cx Nom ( U)Ordered By: Rakesh Srivastava on 09-22-2023 Interpretation and review of laboratory results Abnormal [facility] CBC panel Auto (Bld)on 09-22 Erythrocyte distribution [...] [facility] RBC (Bld) [#/Vol] 2.68 10*6/uL [facility] WBC (Bld) [#/Vol] 4.7 10*3/uL [facility] Erythrocyte distribution width (RBC) [Ratio] 14.6 % High 11.5-14.5 [facility] Comment on above: Performed By: #### 3 4532-2 #### BEVERLEY Poe (35571) [facility] [facility] ([facility]) [address] [place] [address] Hematocrit (Bld) [Volume fraction] 27.9 % Low 36.0-46.0 [facility] Comment on above: Performed By: #### 3 4532-2 #### BEVERLEY Poe ([id number]) [facility] ([facility]) [address] [place] [address] Hemoglobin (Bld) [Mass/Vol] 8.0 g/dL Low 12.0-16.0 [facility] Comment on above: Performed By: #### 3 4531-2 #### BEVERLEY Poe ([id number]) [facility] ([facility]) [address] [place] [address] MCH (RBC) [Entitic mass] 29.9 pg Normal 26.0-34.0 [facility] Comment on above: Performed By: #### 3 4531-2 #### BEVERLEY Poe (86883) [facility] [place] [facility] ([facility]) [address] [place] [address] MCHC (RBC) [Mass/Vol] 28.7 g/dL Low 32.0-36.0 [facility] Comment on above: Performed By: #### 3 4531-2 #### BEVERLEY Poe ([id number]) [facility] [place] [facility] ([facility]) [address] [place] [address] MCV (RBC) [Entitic vol] 104 fL High 80-100 [facility] Comment on above: Performed By: #### 3 4531-2 #### BEVERLEY Poe (46529) [facility] ([facility]) [address] [place] [address] Nucleated RBC/100 WBC (Bld) [Ratio] 0.0 /100 WBCs Normal 0.0-0.0 [facility] Comment on above: Performed By: #### 3 4531-2 #### BEVERLEY Poe ([id number]) [facility] ([facility]) [address] [place] [address] Platelets (Bld) [#/Vol] 99 x10*3/uL Low 150-450 [facility] Comment on above: Performed By: #### 3 4531-2 #### BEVERLEY Poe ([id number]) [facility] [place] [facility] ([facility]) [address] [place] [address] RBC (Bld) [#/Vol] 2.68 x10*6/uL Low 4.00-5.20 [facility] Comment on above: Performed By: #### 3 4532-2 #### BEVERLEY Poe ([id number]) [facility] [place] [facility] ([facility]) [address] [place] [address] WBC (Bld) [#/Vol] 4.7 x10*3/uL Normal 4.4-11.3 [facility] Comment on above: Performed By: #### 3 4532-2 #### BEVERLEY Poe ([id number]) [facility] [facility] ([facility]) [address] [place] [address] Glucose Test strip manual (B ld) [Mass/Vol]on 09-22-2023 Glucose [Mass/Vol] 160 mg/dL High 74 - 99 mg/dL [facility] Interpretation and review of laboratory results Abnormal [facility] Glucose [Mass/Vol] 160 mg/dL High 74-99 [facility] Comment on above: Performed By: #### 2 341-6 #### BEVERLEY Poe ([id number]) [facility] ([facility] [place]) [address] [place] [address] Glucose [Mass/Vol] 174 mg/dL High 74 - 99 mg/dL [facility] Interpretation and review of laboratory results Abnormal [facility] Glucose [Mass/Vol] 174 mg/dL High 74-99 [facility] Comment on above: Performed By: #### 2 341-6 #### BEVERLEY Poe ([id number]) [facility] ([facility] [place]) [address] [place] [address]607 Glucose [Mass/Vol] 135 mg/dL High 74-99 [facility] Comment on above: Performed By: #### 2 341-6 #### BEVERLEY Poe ([id number]) [facility] ([facility] [place]) [address] [place] [address] 30568 Glucose [Mass/Vol] 148 mg/dL High 74 - 99 mg/dL [facility] Interpretation and review of laboratory results Abnormal [facility] Glucose [Mass/Vol] 148 mg/dL High 74-99 [facility] Comment on above: Performed By: #### 3 4532-2 #### BEVERLEY Poe ([id number]) [facility] ([facility]) [address] [place] [address] Magnesiumon 09-22-2023 Magnesium [Mass/Vol] 2.07 mg/dL 1.60 - 2.40 mg/dL [facility] Magnesium [Mass/Vol] 2.07 mg/dL Normal 1.60-2.40 [facility] Comment on above: Performed By: #### 3 4532-2 #### BEVERLEY Poe (81091) [facility] ([facility]) [address] [place] [address] Magnesium [Mass/Vol]on 09-22 Interpretation and review of [...] BCP dye [Mass/Vol] 2.7 g/dL Low 3.4-5.0 [facility] Comment on above: Performed By: #### 3 4531-2 #### BEVERLEY Poe ([id number]) [facility] ([facility]) [address] [place] [address] Anion gap [Moles/Vol] 11 mmol/L Normal 10-20 [facility] Comment on above: Performed By: #### 3 4531-2 #### BEVERLEY Poe ([id number]) [facility] ([facility]) [address] [place] [address] Calcium [Mass/Vol] 8.3 mg/dL Low 8.6-10.6 [facility] Comment on above: Performed By: #### 3 4531-2 #### BEVERLEY Poe ([id number]) [facility] ([facility]) [address] [place] [address] Chloride [Moles/Vol] 101 mmol/L Normal 98-107 [facility] Comment on above: Performed By: #### 3 4531-2 #### BEVERLEY Poe ([id number]) [facility] ([facility]) [address] [place] [address] CO2 [Moles/Vol] 38 mmol/L High 21-32 [facility] Comment on above: Performed By: #### 3 4531-2 #### BEVERLEY Poe ([id number]) [facility] ([facility]) [address] [place] [address] Creatinine [Mass/Vol] 0.42 mg/dL Low 0.50-1.05 [facility] Comment on above: Performed By: #### 3 4531-2 #### BEVERLEY Poe ([id number]) [facility] ([facility]) [address] [place] [address] GFR/1.73 sq M.predicted MDRD (S/P/Bld) [Vol rate/Area] mL/min/{1.73_m2} Normal >60 [facility] Comment on above: Result Comment: Calc ulations of estimated GFR are performed using the 2020 CKD-EPI Study Refit equation without the race variable for the IDMS-Traceable creatinine methods. https://jasn.asnjournals.org/content/early//ASN.96763 71170 Performed By: #### 3 4532-2 #### BEVERLEY Poe ([id number]) [facility] ([facility]) [address] [place] [address] Glucose [Mass/Vol] 134 mg/dL High 74-99 [facility] Comment on above: Performed By: #### 3 4532-2 #### BEVERLEY Poe ([id number]) [facility] ([facility]) [address] [place] [address] Phosphate [Mass/Vol] 3.4 mg/dL Normal 2.5-4.9 [facility] [place] Comment on above: Result Comment: The performance characteristics of phosphorus testing in heparinized plasma have been validated by the individual laboratory site where testing is performed. Testing on heparinized plasma is not approved by the FDA; however, such approval is not necessary. Performed By: #### 3 4532-2 #### BEVERLEY Poe ([id number]) [facility] [facility]) [address] [place] [address] Potassium [Moles/Vol] 4.0 mmol/L Normal 3.5-5.3 [facility] Comment on above: Performed By: #### 3 4532-2 #### BEVERLEY Poe ([id number]) [facility] ([facility]) [address] [place] [address] Sodium [Moles/Vol] 146 mmol/L High 136-145 [facility] Comment on above: Performed By: #### 3 4532-2 #### BEVERLEY Poe ([id number]) [facility] ([facility]) [address] [place] [address] Urea nitrogen [Mass/Vol] 15 mg/dL Normal 6-23 [facility] Comment on above: Performed By: #### 3 4532-2 #### BEVERLEY Poe ([id number]) [facility] ([facility]) [address] [place] [address] Urine cultureOrdered By: Kel Srivastava on 09-22-2023 [...] mass] 30.5 pg 26.0 - 34.0 pg [facility] MCHC (RBC) [Mass/Vol] 31.3 g/dL Low 32.0 - 36.0 g/dL [facility] MCV (RBC) [Entitic vol] 98 fL 80 - 100 fL [facility] Nucleated RBC/100 WBC (Bld) [Ratio] 0.0 % [facility] Platelets (Bld) [#/Vol] 88 10*3/uL Low [facility] RBC (Bld) [#/Vol] 2.62 10*6/uL [facility] WBC (Bld) [#/Vol] 5.0 10*3/uL [facility] Erythrocyte distribution width (RBC) [Ratio] 14.4 % Normal 11.5-14.5 [facility] Comment on above: Performed By: #### 2 341-6 #### BEVERLEY Poe ([id number]) [facility] ([facility] [id number] [place] [address] Hematocrit (Bld) [Volume fraction] 25.6 % Low 36.0-46.0 [facility] Comment on above: Performed By: #### 2 341-6 #### BEVERLEY Poe ([id number]) [facility] ([facility] [address] [place] [address] Hemoglobin (Bld) [Mass/Vol] 8.0 g/dL Low 12.0-16.0 [facility] Comment on above: Performed By: #### 2 341-6 #### BEVERLEY Poe ([id number]) [facility] ([facility] [address] [place] [address]34 MCH (RBC) [Entitic mass] 30.5 pg Normal 26.0-34.0 [facility] Comment on above: Performed By: #### 2 341-6 #### BEVERLEY Poe ([id number]) [facility] ([facility]) [address] [place] [address] 40431 MCHC (RBC) [Mass/Vol] 31.3 g/dL Low 32.0-36.0 [facility] Comment on above: Performed By: #### 2 341-6 #### BEVERLEY Poe ([id number]) [facility] ([facility] [address] [place] [address] 24220 MCV (RBC) [Entitic vol] 98 fL Normal 80-100 [facility] Comment on above: Performed By: #### 2 341-6 #### BEVERLEY Poe ([id number]) [facility] ([facility]) [address] [place] [address] 65390 Nucleated RBC/100 WBC (Bld) [Ratio] 0.0 /100 WBCs Normal 0.0-0.0 [facility] Comment on above: Performed By: #### 2 341-6 #### BEVERLEY Poe ([id number]) [facility] ([facility]) [address] [place] [address] 70204 Platelets (Bld) [#/Vol] 88 x10*3/uL Low 150-450 [facility] Comment on above: Performed By: #### 2 341-6 #### BEVERLEY Poe ([id number]) [facility] ([facility]) [address] [place] [address] 90827 RBC (Bld) [#/Vol] 2.62 x10*6/uL Low 4.00-5.20 [facility] Comment on above: Performed By: #### 2 341-6 #### BEVERLEY Poe ([id number]) [facility] ([facility]) [address] [place] [address]30[address] WBC (Bld) [#/Vol] 5.0 x10*3/uL Normal 4.4-11.3 [facility] Comment on above: Performed By: #### 2 341-6 #### BEVERLEY Poe ([id number]) [facility] ([facility]) [address] [place] [address] 34944 Cancer Ag 125 Qnon 3 Interpretation and review of laboratory results Normal [facility] Cancer Antigen 125on 023 Cancer Ag 125 Qn 22.0 [arb'U]/mL 0.0 - 30 .2 U/mL [facility] Glucose Test strip manual (B ld) [Mass/Vol]on 09-21-2023 Glucose [Mass/Vol] 189 mg/dL High 74 - 99 mg/dL [facility] Interpretation and review of laboratory results Abnormal [facility] Glucose [Mass/Vol] 189 mg/dL High 74-99 [facility] Comment on above: Performed By: #### 3 4532-2 #### BEVERLEY Poe ([id number]) [facility] ([facility] [address] [place] [address] Glucose [Mass/Vol] 120 mg/dL High 74 - 99 mg/dL [facility] Interpretation and review of laboratory results Abnormal [facility] Glucose [Mass/Vol] 120 mg/dL High 74-99 [facility] Comment on above: Performed By: #### 3 4532-2 #### BEVERLEY Poe ([id number]) [facility] ([facility]) [address] [place] [address] Glucose [Mass/Vol] 162 mg/dL High 74 - 99 mg/dL [facility] Interpretation and review of laboratory results Abnormal [facility] Glucose [Mass/Vol] 162 mg/dL High 74-99 [facility] Comment on above: Performed By: #### 3 4532-2 #### BEVERLEY Poe ([id number]) [facility] ([facility]) [address] [place] [address] Glucose [Mass/Vol] 134 mg/dL High 74 - 99 mg/dL [facility] Interpretation and review of laboratory results Abnormal [facility] Glucose [Mass/Vol] 134 mg/dL High 74-99 [facility] Comment on above: Performed By: #### 2 341-6 #### BEVRELEY Poe ([id number]) [facility] ([facility]) [address] [place] [address]3469 Glucose [Mass/Vol] 136 mg/dL High 74 - 99 mg/dL [facility] Interpretation and review of laboratory results Abnormal [facility] Glucose [Mass/Vol] 136 mg/dL High 74-99 [facility] Comment on above: Performed By: #### 2 341-6 #### BEVERLEY Poe ([id number]) [facility] ([facility]) [address] [place] [address] 35179 Glucose [Mass/Vol] 123 mg/dL High 74 - 99 mg/dL [facility] Interpretation and review of laboratory results Abnormal [facility] Glucose [Mass/Vol] 123 mg/dL High 74-99 [facility] Comment on above: Performed By: #### 2 341-6 #### BEVERLEY Poe ([id number]) [facility] ([facility] [address] [place] [id number] MR PELVIS W AND WO IV TI [...] colovesical colovaginal fistula. COMPARISON: None ACCESSION NUMBER(S): [id number] ORDERING CLINICIAN: KANG JULIAN TECHNIQUE: Multiplanar MRI [...] Cristina MD. This study was interpreted at [place], [place]. MACRO: None Signed by: Clint Woods 09/25/2023 3:47 PM Dictation workstation: [id number] Normal [facility] MR Pelvis WO and W contrast Jack 09-21-2023 Radiology Study observation (narrative) [facility] Work Phone: Magnesiumon 09-21-2023 Magnesium [Mass/Vol] 2.05 mg/dL 1.60 - 2.40 mg/dL [facility] Magnesium [Mass/Vol] 2.05 mg/dL Normal 1.60-2.40 [facility] Comment on above: Performed By: #### 2 341-6 #### BEVERLEY Poe ([id number]) [facility] ([facility]) [address] [place] [address] Magnesium [Mass/Vol]on 09-21 Interpretation and review of [...] BCP dye [Mass/Vol] 2.7 g/dL Low 3.4-5.0 [facility] Comment on above: Performed By: #### 3 4532-2 #### BEVERLEY Poe ([id number]) [facility] ([facility]) [address] [place] [address] Anion gap [Moles/Vol] 8 mmol/L Low 10-20 Uni [facility] Comment on above: Performed By: #### 3 4532-2 #### BEVERLEY Poe ([id number]) [facility] ([facility]) [address] [place] [address] Calcium [Mass/Vol] 8.3 mg/dL Low 8.6-10.6 [facility] Comment on above: Performed By: #### 3 4532-2 #### BEVERLEY Poe ([id number]) [facility] ([facility]) [address] [place] [address] Chloride [Moles/Vol] 101 mmol/L Normal 98-107 [facility] Comment on above: Performed By: #### 3 4532-2 #### BEVERLEY Poe ([id number]) [facility] ([facility]) [address] [place] [address] CO2 [Moles/Vol] 41 mmol/L Critically high 21-32 [facility] Comment on above: Performed By: #### 3 4532-2 #### BEVERLEY Poe ([id number]) [facility] ([facility]) [address] [place] [address] Creatinine [Mass/Vol] 0.45 mg/dL Low 0.50-1.05 [facility] Comment on above: Performed By: #### 3 4532-2 #### BEVERLEY Poe ([id number]) [facility] ([facility]) [address] [place] [address] GFR/1.73 sq M.predicted MDRD (S/P/Bld) [Vol rate/Area] mL/min/{1.73_m2} Normal >60 [facility] Comment on above: Result Comment: Calc ulations of estimated GFR are performed using the 2020 CKD-EPI Study Refit equation without the race variable for the IDMS-Traceable creatinine methods. https://jasn.asnjournals.org/content//ASN.82291 56547 Performed By: #### 3 4532-2 #### BEVERLEY Poe ([id number]) [facility] ([facility]) [address] [place] [address] Glucose [Mass/Vol] 140 mg/dL High 74-99 [facility] Comment on above: Performed By: #### 3 4532-2 #### BEVERLEY Poe ([id number]) [facility] ([facility]) [address] [place] [address] Phosphate [Mass/Vol] 3.4 mg/dL Normal 2.5-4.9 [facility] Comment on above: Result Comment: The performance characteristics of phosphorus testing in heparinized plasma have been validated by the individual laboratory site where testing is performed. Testing on heparinized plasma is not approved by the FDA; however, such approval is not necessary. Performed By: #### 3 4532-2 #### BEVERLEY Poe ([id number]) [facility] ([facility]) [address] [place] [address] Potassium [Moles/Vol] 3.8 mmol/L Normal 3.5-5.3 [facility] Comment on above: Performed By: #### 3 4532-2 #### BEVERLEY Poe ([id number]) [facility] ([facility]) [address] [place] [address] Sodium [Moles/Vol] 146 mmol/L High 136-145 [facility] Comment on above: Performed By: #### 3 4532-2 #### BEVERLEY Poe ([id number]) [facility] ([facility]) [address] [place] [address] Urea nitrogen [Mass/Vol] 12 mg/dL Normal 6-23 [facility] Comment on above: Performed By: #### 3 4532-2 #### BEVERLEY Poe ([id number]) [facility] ([facility]) [address] [place] [address] Bacteria identifiedon 2022 Bacteria identified Cx Nom (U) Test: Urine culture Specimen Source: Indwelling (Stephens) Catheter Specimen Type: Urine Specimen Date: 09/20/2023 3:34 PM Result Date: 09/22/2023 11:36 AM Result Status: Final result Abnormal: Yes Resulting Lab: [facility] [id number] [place] [address] CULTURE >100,000 Enterococcus faecium (Abnormal) Vancomycin Resistant Enterococcus (VRE) SUSCEPTIBILITY Enterococcus faecium METHOD MICROSCAN ---- ------- AMPICILLIN -- Resistant CIPROFLOXACIN -- Resistant DAPTOMYCIN -- Susceptible-dose dependent LEVOFLOXACIN -- Resistant LINEZOLID -- Susceptible NITROFURANTOIN -- Susceptible PENICILLIN -- Resistant TRIMETHOPRIM/SULFAMETHOXA ZOLE -- Resistant VANCOMYCIN -- Resistant Abnormal [facility] Comment on above: Performed By: #### 3 4532-2 #### BEVERLEY Poe ([id number]) [facility] ([facility] [address] [place] [address] CBC panel Auto (Bld)on 09-20 Erythrocyte distribution [...] [facility] RBC (Bld) [#/Vol] 2.71 10*6/uL Low [facility] WBC (Bld) [#/Vol] 4.3 10*3/uL [facility] Erythrocyte distribution width (RBC) [Ratio] 14.5 % Normal 11.5-14.5 [facility] Comment on above: Performed By: #### 6 00-7 #### BEVERLEY Poe ([id number]) [facility] ([facility]) [address] [place] [address]793 Hematocrit (Bld) [Volume fraction] 27.7 % Low 36.0-46.0 [facility] Comment on above: Performed By: #### 6 -7 #### BEVERLEY Poe ([id number]) [facility] ([facility]) [address] [place] [address]305 Hemoglobin (Bld) [Mass/Vol] 8.3 g/dL Low 12.0-16.0 [facility] Comment on above: Performed By: #### 6 -7 #### BEVERLEY Poe ([id number]) [facility] ([facility]) [address] [place] [address] 56773 MCH (RBC) [Entitic mass] 30.6 pg Normal 26.0-34.0 [facility] Comment on above: Performed By: #### 6 -7 #### BEVERLEY Poe ([id number]) [facility] ([facility]) [address] [place] [address] 60800 MCHC (RBC) [Mass/Vol] 30.0 g/dL Low 32.0-36.0 [facility] Comment on above: Performed By: #### 6 00-7 #### BEVERLEY Poe ([id number]) [facility] ([facility]) [address] [place] [address] 85565 MCV (RBC) [Entitic vol] 102 fL High 80-100 [facility] Comment on above: Performed By: #### 6 00-7 #### BEVERLEY Poe ([id number]) [facility] ([facility]) [address] [place] [address] 19215 Nucleated RBC/100 WBC (Bld) [Ratio] 0.0 /100 WBCs Normal 0.0-0.0 [facility] Comment on above: Performed By: #### 6 00-7 #### BEVERLEY Poe ([id number]) [facility] ([facility]) [address] [place] [address] Platelets (Bld) [#/Vol] 92 x10*3/uL Low 150-450 [facility] Comment on above: Performed By: #### 6 00-7 #### BEVERLEY Poe ([id number]) [facility] ([facility] [address] [place] [address] RBC (Bld) [#/Vol] 2.71 x10*6/uL Low 4.00-5.20 [facility] Comment on above: Performed By: #### 6 00-7 #### BEVERLEY Poe ([id number]) [facility] ([facility]) [address] [place] [address] WBC (Bld) [#/Vol] 4.3 x10*3/uL Low 4.4-11.3 [facility] Comment on above: Performed By: #### 6 00-7 #### BEVERLEY Poe ([id number]) [facility] ([facility]) [address] [place] [address] Cancer Ag 19-9on 09-20-2023 Cancer Ag 19-9 Qn 6.88 [arb'U]/mL Normal <35.00 [facility] Comment on above: Order Comment: CA 19 -9 testing is performed by chemiluminescent immunoassay using the Picplum. Values obtained with different analytic methods cannot [...] By: #### 2 341-6 #### BEVERLEY Poe ([id number]) [facility] ([facility]) [address] [place] [address] 43711 Cancer Ag 19-9 Qnon 09-20-20 Interpretation and review of laboratory results Normal [facility] Cancer Antigen 19-9on 2022 Cancer Ag 19-9 Qn 6.88 [arb'U]/mL NINF - 35.00 U/mL [facility] Glucose Test strip manual (B ld) [Mass/Vol]on 09-20-2023 Glucose [Mass/Vol] 210 mg/dL High 74 - 99 mg/dL [facility] Interpretation and review of laboratory results Abnormal [facility] Glucose [Mass/Vol] 210 mg/dL High 74-99 [facility] Comment on above: Performed By: #### 2 341-6 #### BEVERLEY Poe ([id number]) [facility] ([facility]) [address] [place] [address] 26207 Glucose [Mass/Vol] 114 mg/dL High 74 - 99 mg/dL [facility] Interpretation and review of laboratory results Abnormal [facility] Glucose [Mass/Vol] 114 mg/dL High 74-99 [facility] Comment on above: Performed By: #### 2 341-6 #### BEVERLEY Poe ([id number]) [facility] ([facility]) [address] [place] [address]4044 Glucose [Mass/Vol] 152 mg/dL High 74 - 99 mg/dL [facility] Interpretation and review of laboratory results Abnormal [facility] Glucose [Mass/Vol] 152 mg/dL High 74-99 [facility] Comment on above: Performed By: #### 2 341-6 #### BEVERLEY Poe ([id number]) [facility] ([facility]) [address] [place] [address] 52301 Glucose [Mass/Vol] 140 mg/dL High 74 - 99 mg/dL [facility] Interpretation and review of laboratory results Abnormal [facility] Glucose [Mass/Vol] 140 mg/dL High 74-99 [facility] Comment on above: Performed By: #### 6 00-7 #### BEVERLEY Poe ([id number]) [facility] ([facility]) [address] [place] [address] 38952 Glucose [Mass/Vol] 125 mg/dL High 74 - 99 mg/dL [facility] Interpretation and review of laboratory results Abnormal [facility] Glucose [Mass/Vol] 125 mg/dL High 74-99 [facility] Comment on above: Performed By: #### 6 00-7 #### BEVERLEY Poe ([id number]) [facility] ([facility] [place]) [address] [place] [address] 74980 Glucose [Mass/Vol] 111 mg/dL High 74 - 99 mg/dL [facility] Glucose [Mass/Vol] 213 mg/dL High 74 - 99 mg/dL [facility] Interpretation and review of laboratory results Abnormal [facility] Glucose [Mass/Vol] 109 mg/dL High 74 - 99 mg/dL [facility] Interpretation and review of laboratory results Abnormal [facility] Glucose [Mass/Vol] 109 mg/dL High 74-99 [facility] Comment on above: Performed By: #### 6 00-7 #### BEVERLEY Poe ([id number]) [facility] ([facility] [place]) [address] [place] [address] 61245 HCV Ab Ql (S)on 09-20-2023 Interpretation and review of laboratory results Normal [facility] HIV 1+2 Ab+HIV1 p24 Agon HIV 1+2 Ab+HIV1 p24 Ag IA Ql Non-Reactive Normal Nonreactive [facility] Comment on above: Order Comment: HIV [...] By: #### 6 00-7 #### BEVERLEY Poe ([id number]) [facility] ([facility] [place]) [address] [place] [address] 69577 HIV 1+2 Ab+HIV1 p24 Ag IA Ql on 09-20-2023 Interpretation and review of laboratory results Normal [facility] HIV 1/2 Antigen/Antibody Scr een with Reflex to Confirmationon 09-20-2023 HIV 1+2 Ab+HIV1 p24 Ag IA Ql Non-Reactive Nonreactive [facility] Hepatitis C Antibodyon 09-20 HCV Ab Ql (S) Non-Reactive Nonreactive [facility] Hepatitis C virus Abon 09-20 HCV Ab Ql (S) Non-Reactive Normal Nonreactive [facility] Comment on above: Result Comment: Resu lts from patients taking biotin supplements or receiving high-dose biotin therapy should be interpreted with caution due to possible interference with this test. Providers may contact their local laboratory for further information. Performed By: #### 6 00-7 #### BEVERLEY Poe ([id number]) [facility] ([facility] [place]) [address] [place] [address] 71078 Magnesiumon 09-20-2023 Magnesium [Mass/Vol] 2.15 mg/dL 1.60 - 2.40 mg/dL [facility] Magnesium [Mass/Vol] 2.15 mg/dL Normal 1.60-2.40 [facility] Comment on above: Performed By: #### 6 00-7 #### BEVERLEY Poe ([id number]) [facility] ([facility] [place]) [address] [place] [address] 47940 Magnesium [Mass/Vol]on 09-20 Interpretation and review of laboratory results Normal [facility] No Panel Informationon 09-20 [facility] MMODAL MMODAL [facility] Work Phone: No [...] BCP dye [Mass/Vol] 2.9 g/dL Low 3.4-5.0 [facility] Comment on above: Performed By: #### 6 -7 #### BEVERLEY Poe ([id number]) [facility] ([facility] [place] [address] [place] [address] Anion gap [Moles/Vol] 9 mmol/L Low 10-20 [facility] Comment on above: Performed By: #### 6 -7 #### BEVERLEY CARSONER L ([id number]) [facility] ([facility] [place] [address] [place] [address] Calcium [Mass/Vol] 8.7 mg/dL Normal 8.6-10.6 [facility] Comment on above: Performed By: #### 6 -7 #### BEVERLEY SCHMOTZER L ([id number]) [facility] ([facility] [place] [address] [place] [address] Chloride [Moles/Vol] 99 mmol/L Normal 98-107 [facility] Comment on above: Performed By: #### 6 00-7 #### BEVERLEY VORAMOTZER L ([id number]) [facility] ([facility] [place] [address] [place] [address] CO2 [Moles/Vol] 40 mmol/L Critically high 21-32 [facility] Comment on above: Performed By: #### 6 -7 #### BEVERLEY VORAMOTZER L ([id number]) [facility] ([facility] [place]) [address] [place] [address] Creatinine [Mass/Vol] 0.51 mg/dL Normal 0.50-1.05 [facility] Comment on above: Performed By: #### 6 00-7 #### BEVERLEY VORAMOTZER L ([id number]) [facility] ([facility] [place] [address] [place] [address] 04490 GFR/1.73 sq M.predicted MDRD (S/P/Bld) [Vol rate/Area] mL/min/{1.73_m2} Normal >60 [facility] Comment on above: Result Comment: Calc ulations of estimated GFR are performed using the 2020 CKD-EPI Study Refit equation without the race variable for the IDMS-Traceable creatinine methods. https://jasn.asnjournals.org/content/early//ASN.45552 78087 Performed By: #### 6 00-7 #### BEVERLEY VORAMOTZER L ([id number]) [facility] ([facility] [place]) [address] [place] [address] 00449 Glucose [Mass/Vol] 117 mg/dL High 74-99 [facility] Comment on above: Performed By: #### 6 -7 #### BEVERLEY DODD L ([id number]) [facility] ([facility] [place]) [address] [place] [address] 45722 Phosphate [Mass/Vol] 3.0 mg/dL Normal 2.5-4.9 [facility] Comment on above: Result Comment: The performance characteristics of phosphorus testing in heparinized plasma have been validated by the individual laboratory site where testing is performed. Testing on heparinized plasma is not approved by the FDA; however, such approval is not necessary. Performed By: #### 6 -7 #### BEVERLEY Poe ([id number]) [facility] ([facility] [place] [address] [place] [address] 38063 Potassium [Moles/Vol] 3.9 mmol/L Normal 3.5-5.3 [facility] Comment on above: Performed By: #### 6 00-7 #### BEVERLEY DODD L ([id number]) [facility] ([facility] [place] [address] [place] [address] 72880 Sodium [Moles/Vol] 144 mmol/L Normal 136-145 [facility] Comment on above: Performed By: #### 6 -7 #### BEVERLEY VORAMOTZER L ([id number]) [facility] ([facility] [place] [address] [place] [address] 97244 Urea nitrogen [Mass/Vol] 9 mg/dL Normal 6-23 [facility] Comment on above: Performed By: #### 6 -7 #### BEVERLEY VORAMOTZER L ([id number]) [facility] ([facility] [place] [address] [place] [address] 47123 TRANSTHORACIC ECHO (TTE) [facility] 09-20-2023 TRANSTHORACIC ECHO (TTE) [facility], [address] [place] [address] 71115 and TRANSTHORACIC ECHOCARDIOGRAM REPORT Patient Name: POLI RAMIREZ Reading Physician: [id number] Kandi Roberts MD Study Date: 09/20/2023 Ordering Provider: [id number] VARSHA SOTELO MRN/PID: [id number] Fellow: Nurse: Mare Higgins Date of /Age: 12 1950 [employer] Heavy 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: Muna Clinton 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 years Gender: F Additional Staff: Height: 165.10 cm Admit Date: 09/15/2023 Weight: 74.84 kg Admission Status: Inpatient - Routine BSA: 1.82 m2 Department Location: [facility] Non Invasive Blood Pressure: 126 /75 mmHg Study Type: TRANSTHORACIC ECHO (TTE) COMPLETE Diagnosis/ICD: Encounter for preprocedural cardiovascular examination-Z01.810 CPT Code: Echo Complete w Full Doppler-86839 Patient History: Pertinent History: Breast cancer, HTN, [...] LA Area A2C: 21.1 cm2 LA Major [place] A4C: 5.5 cm LA Major [place] A2C: 5.6 cm AORTA MEASUREMENTS: Normal Ranges: [...] (2.5-4.5cm2) Ao (more content not included)... Normal [facility] US Heart TransthoracicOrdere d By: Kandi Roberts on 09-20-2023 Aortic Valve Area by Continuity of Peak Velocity 1.81 [facility] Work Phone: [phone] Aortic Valve Area by Continuity of VTI 2.01 [facility] Work Phone: [phone] AV mn grad 9.0 [facility] Work Phone: [phone] AV pk grad 15.7 [facility] Work Phone: [phone] AV pk abiodun 1.98 [facility] Work Phone: [phone] LA vol index A/L 36.9 [facility] Work Phone: [phone] LV A4C EF 19.0 [facility] Work Phone: LVIDd 5.70 [facility] Work Phone: LVOT diam 1.80 [facility] Work Phone: MV avg E/e' ratio 16.03 [facility] Work Phone: MV E/A ratio 0.61 [facility] Work Phone: RV free wall pk S' 14.30 [facility] Work Phone: Tricuspid annular plane systolic excursion 2.0 [facility] Work Phone: [facility] Work Phone: US Heart Transthoracicon SYNGO [facility] Work Phone: Bacteria identified Cx Nom ( Bld)on 09-19-2023 Interpretation and review of laboratory results Normal [facility] CBC panel Auto (Bld)on 09-19 Erythrocyte distribution [facility] RBC (Bld) [#/Vol] 2.72 10*6/uL Low [facility] WBC (Bld) [#/Vol] 4.2 10*3/uL [facility] Erythrocyte distribution width (RBC) [Ratio] 14.1 % Normal 11.5-14.5 [facility] Comment on above: Performed By: #### 5 7021-8 #### BEVERLEY Poe ([id number]) [facility] ([facility] [place]) [id number] [place] [address] 50295 Hematocrit (Bld) [Volume fraction] 28.2 % Low 36.0-46.0 [facility] Comment on above: Performed By: #### 5 7021-8 #### BEVERLEY Poe ([id number]) [facility] ([facility] [place]) [address] [place] [address] 77321 Hemoglobin (Bld) [Mass/Vol] 8.4 g/dL Low 12.0-16.0 [facility] Comment on above: Performed By: #### 5 7021-8 #### BEVERLEY Poe ([id number]) [facility] ([facility] [place]) [address] [place] [address] 19610 MCH (RBC) [Entitic mass] 30.9 pg Normal 26.0-34.0 [facility] Comment on above: Performed By: #### 5 7021-8 #### BEVERLEY Poe ([id number]) [facility] ([facility] [place]) [address] [place] [address] 42750 MCHC (RBC) [Mass/Vol] 29.8 g/dL Low 32.0-36.0 [facility] Comment on above: Performed By: #### 5 7021-8 #### BEVERLEY Poe ([id number]) [facility] ([facility] [place]) [address] [place] [address] 76057 MCV (RBC) [Entitic vol] 104 fL High 80-100 [facility] Comment on above: Performed By: #### 5 7021-8 #### BEVERLEY Poe ([id number]) [facility] ([facility] [place]) [address] [place] [address] 87454 Nucleated RBC/100 WBC (Bld) [Ratio] 0.0 /100 WBCs Normal 0.0-0.0 [facility] Comment on above: Performed By: #### 5 7021-8 #### BEVERLEY Poe ([id number]) [facility] ([facility] [place]) [address] [place] [address] Platelets (Bld) [#/Vol] 90 x10*3/uL Low 150-450 [facility] Comment on above: Performed By: #### 5 7021-8 #### BEVERLEY Poe ([id number]) [facility] ([facility] [place]) [address] [place] [address] RBC (Bld) [#/Vol] 2.72 x10*6/uL Low 4.00-5.20 [facility] [place] Comment on above: Performed By: #### 5 7021-8 #### BEVERLEY DODD L ([id number]) [facility] ([facility] [place]) [address] [place] [address] WBC (Bld) [#/Vol] 4.2 x10*3/uL Low 4.4-11.3 [facility] Comment on above: Performed By: #### 5 7021-8 #### BEVERLEY DODD L ([id number]) [facility] ([facility] [place]) [address] [place] [address] CT HEAD WO IV CONTRASTon CT HEAD WO IV CONTRAST Interpreted By: Susy Bright, STUDY: CT HEAD WO IV CONTRAST; 09/19/2023 3:43 pm INDICATION: Signs/Symptoms:R/o subdural hematoma, thrombocytopenia workup (fall several weeks ago). COMPARISON: None. ACCESSION NUMBER(S): [id number] ORDERING CLINICIAN: KANG JULIAN TECHNIQUE: Axial CT [...] Susy Canales 09/19/2023 4:06 PM Dictation workstation: [id number] Normal [facility] CT Head WO contraston 2022 U[facility] MMODAL U[facility] MMODAL [facility] Work Phone: Radiology Study observation (narrative) [facility] Work Phone: CT Head WO contrastOrdered B y: Susy Canales on 09-19-2023 [facility] Work Phone: ECG 12-LEADon 09-19-2023 ECG 12-LEAD Ventricular Rate 104 Atrial Rate 104 P-R Interval 150 QRS Duration 136 Q-T Interval 352 QTC Calculation(Bazett) 462 P [place] 67 R [place] -54 T [place] 70 QRS Count 17 Q Onset 212 P Onset 137 P Offset 193 T Offset 388 QTC Fredericia 422 Diagnosis Sinus tachycardia with occasional Premature ventricular complexes Left bundle branch block Abnormal ECG When compared with ECG of 19-SEP-2023 12:28, (unconfirmed) Premature ventricular complexes are now Present Confirmed by Simon Piedra ([id number]) on 09/27/2023 12:27:49 PM Normal [facility] ECG 12-LEAD Ventricular Rate 96 Atrial Rate 96 P-R Interval 156 QRS Duration 136 Q-T Interval 380 QTC Calculation(Bazett) 480 P [place] 61 R [place] -49 T [place] 77 QRS Count 16 Q Onset 211 P Onset 133 P Offset 197 T Offset 401 QTC Fredericia 444 Diagnosis Sinus rhythm with occasional Premature ventricular complexes Left axis deviation Left bundle branch block Abnormal ECG No previous ECGs available Confirmed by Harrison Piedra ([id number]) on 09/26/2023 9:00:49 AM Normal [facility] Gas panel (BldA)Ordered By: Allyssa Bach on [...] High 7.38 - 7.42 pH [facility] Gas panel (BldA)on Base excess Calc (Bld) [Moles/Vol] 14.9 mmol/L High -2.0-3.0 [facility] Comment on above: Order Comment: While on baseline/ home level of oxygen Performed By: #### 6 00-7 #### BEVERLEY Poe ([id number]) [facility] ([facility] [place]) [address] [place] [address] 86625 CO2 (Bld) [Partial pressure] 61 mm Hg High 38-42 [facility] Comment on above: Order Comment: While on baseline/ home level of oxygen Performed By: #### 6 00-7 #### BEVERLEY PATELTZER L ([id number]) [facility] ([facility] [place]) [address] [place] [address] HCO3 (Bld) [Moles/Vol] 41.4 mmol/L High 22.0-26.0 [facility] Comment on above: Order Comment: While on baseline/ home level of oxygen Performed By: #### 6 00-7 #### BEVERLEY VORAMOTZER L ([id number]) [facility] ([facility] [place]) [address] [place] [address] 32554 Inhaled oxygen concentration 28 % Normal [facility] Comment on above: Order Comment: While on baseline/ home level of oxygen Performed By: #### 6 00-7 #### BEVERLEY Poe ([id number]) [facility] ([facility] [place] [address] [place] [address] 77816 Oxygen (Bld) [Partial pressure] 121 mm Hg High 85-95 [facility] Comment on above: Order Comment: While on baseline/ home level of oxygen Performed By: #### 6 00-7 #### BEVERLEY Poe ([id number]) [facility] ([facility] [place]) [address] [place] [address] 23508 Oxyhemoglobin (BldA) [Mass fraction] 96.7 % Normal 94.0-98.0 [facility] Comment on above: Order Comment: While on baseline/ home level of oxygen Performed By: #### 6 -7 #### BEVERLEY Poe ([id number]) [facility] ([facility] [place]) [address] [place] [address] 05376 pH (Bld) 7.44 [pH] High 7.38-7.42 [facility] Comment on above: Order Comment: While on baseline/ home level of oxygen Performed By: #### 6 -7 #### BEVERLEY Poe ([id number]) [facility] ([facility] [place]) [address] [place] [address] 25937 Glucose Test strip manual (B ld) [Mass/Vol]on 09-19-2023 Glucose [Mass/Vol] 213 mg/dL High 74-99 [facility] Comment on above: Performed By: #### 6 00-7 #### BEVERLEY DODD L ([id number]) [facility] ([facility] [place]) [address] [place] [address] 13804 Glucose [Mass/Vol] 158 mg/dL High 74 - 99 mg/dL [facility] Interpretation and review of laboratory results Abnormal [facility] Glucose [Mass/Vol] 158 mg/dL High 74-99 [facility] Comment on above: Performed By: #### 6 00-7 #### BEVERLEY Poe ([id number]) [facility] ([facility] [place]) [address] [place] [address] 49843 Glucose [Mass/Vol] 98 mg/dL 74 - 99 mg/dL [facility] Interpretation and review of laboratory results Normal [facility] Glucose [Mass/Vol] 98 mg/dL Normal 74-99 [facility] Comment on above: Performed By: #### 6 00-7 #### BEVERLEY Poe ([id number]) [facility] ([facility] [place]) [address] [place] [address] 95584 Glucose [Mass/Vol] 111 mg/dL High 74-99 [facility] Comment on above: Performed By: #### 6 00-7 #### BEVERLEY Poe ([id number]) [facility] ([facility] [place]) [address] [place] [address] 80765 Glucose [Mass/Vol] 164 mg/dL High 74 - 99 mg/dL [facility] Interpretation and review of laboratory results Abnormal [facility] Glucose [Mass/Vol] 164 mg/dL High 74-99 [facility] Comment on above: Performed By: #### 5 7021-8 #### BEVERLEY Poe ([id number]) [facility] ([facility] [place]) [address] [place] [address] 29399 Glucose [Mass/Vol] 124 mg/dL High 74 - 99 mg/dL [facility] Interpretation and review of laboratory results Abnormal [facility] Glucose [Mass/Vol] 124 mg/dL High 74-99 [facility] Comment on above: Performed By: #### 5 7021-8 #### BEVERLEY Poe ([id number]) [facility] ([facility] [place]) [address] [place] [address] 73342 HBV surface Ag IA Qlon 09-19 Interpretation and review of laboratory results Normal [facility] Hepatitis B Surface Antigeno n 09-19-2023 HBV surface Ag IA Ql Non-Reactive Nonreactive U [facility] - Microbiology an d Antimicrobial susceptibilityon 09-19-2023 Bacteria identified Cx Nom (Bld) No growth at 4 days - FINAL REPORT [facility] Magnesiumon 09-19-2023 Magnesium [Mass/Vol] 2.22 mg/dL 1.60 - 2.40 mg/dL [facility] Magnesium [Mass/Vol] 2.22 mg/dL Normal 1.60-2.40 [facility] Comment on above: Performed By: #### 6 00-7 #### BEVERLEY Poe ([id number]) [facility] ([facility] [place]) [address] [place], [place] [id number] Magnesium [Mass/Vol]on 09-19 Interpretation and review of laboratory results Normal [facility] Natriuretic peptide B [Mass/ Vol]on 09-19-2023 Interpretation and review of laboratory results Abnormal [facility] Natriuretic peptide B (Bld) [Mass/Vol] 154 pg/mL High 0 - 99 pg/mL [facility] Natriuretic peptide B (Bld) [Mass/Vol] 154 pg/mL High 0-99 [facility] Comment on above: Order Comment: <100 pg/mL - Heart failure obcuzorl821-001 pg/mL - Intermediate probability of acute heart [...] By: #### 6 00-7 #### BEVERLEY Poe ([id number]) [facility] ([facility] [place]) [address] [place] [address] 75220 No Panel Informationon 09-19 Radiology Study observation (narrative) [facility] Work Phone: [facility] PT and aPTT panel Coag (PPP) on 09-19-2023 aPTT Coag (PPP) [Time] 32 s [facility] INR Coag (PPP) [Relative time] 1.1 {INR} 0.9 - 1.1 [facility] Interpretation and review of laboratory results Normal [facility] PT Coag (PPP) [Time] 12.3 s [facility] aPTT Coag (PPP) [Time] 32 s Normal 27-38 [facility] Comment on above: Order Comment: The A PTT is no longer used for monitoring Unfractionated Heparin Therapy. For monitoring Heparin Therapy, use the Heparin Assay. Performed By: #### 5 7021-8 #### BEVERLEY Poe ([id number]) [facility] ([facility] [place]) [address] [place] [address] 43638 INR Coag (PPP) [Relative time] 1.1 Normal 0.9-1.1 [facility] Comment on above: Order Comment: The A PTT is no longer used for monitoring Unfractionated Heparin Therapy. For monitoring Heparin Therapy, use the Heparin Assay. Performed By: #### 5 7021-8 #### BEVERLEY Poe ([id number]) [facility] ([facility] [place]) [address] [place] [address] 91401 PT Coag (PPP) [Time] 12.3 s Normal 9.8-12.8 [facility] Comment on above: Order Comment: The A PTT is no longer used for monitoring Unfractionated Heparin Therapy. For monitoring Heparin Therapy, use the Heparin Assay. Performed By: #### 5 7021-8 #### BEVERLEY Poe ([id number]) [facility] ([facility] [place]) [address] [place] [address] 33685 Renal function 2000 panelon 09-19-2023 Albumin BCP [...] BCP dye [Mass/Vol] 2.8 g/dL Low 3.4-5.0 [facility] Comment on above: Performed By: #### 6 00-7 #### BEVERLEY Poe ([id number]) [facility] ([facility] [place]) [address] [place] [address] 51109 Anion gap [Moles/Vol] 14 mmol/L Normal 10-20 [facility] Comment on above: Performed By: #### 6 00-7 #### BEVERLEY Poe ([id number]) [facility] ([facility] [place]) [address] [place] [address] 08536 Calcium [Mass/Vol] 8.2 mg/dL Low 8.6-10.6 [facility] Comment on above: Performed By: #### 6 00-7 #### BEVERLEY Poe ([id number]) [facility] ([facility] [place]) [address] [place] [address] 57226 Chloride [Moles/Vol] 101 mmol/L Normal 98-107 [facility] Comment on above: Performed By: #### 6 00-7 #### BEVERLEY Poe ([id number]) [facility] ([facility] [place]) [address] [place] [address] CO2 [Moles/Vol] 35 mmol/L High 21-32 [facility] Comment on above: Performed By: #### 6 00-7 #### BEVERLEY Poe ([id number]) [facility] ([facility] [place] [address] [place] [address] Creatinine [Mass/Vol] 0.40 mg/dL Low 0.50-1.05 [facility] Comment on above: Performed By: #### 6 00-7 #### BEVERLEY Poe ([id number]) [facility] ([facility] [place]) [address] [place] [address] GFR/1.73 sq M.predicted MDRD (S/P/Bld) [Vol rate/Area] mL/min/{1.73_m2} Normal >60 [facility] Comment on above: Result Comment: Calc ulations of estimated GFR are performed using the 2020 CKD-EPI Study Refit equation without the race variable for the IDMS-Traceable creatinine methods. https://jasn.asnjournals.org/content//ASN.97245 53230 Performed By: #### 6 00-7 #### BEVERLEY Poe ([id number]) [facility] ([facility] [place]) [address] [place] [address] Glucose [Mass/Vol] 122 mg/dL High 74-99 [facility] Comment on above: Performed By: #### 6 00-7 #### BEVERLEY Poe ([id number]) [facility] ([facility] [place] [address] [place] [address] Phosphate [Mass/Vol] 2.9 mg/dL Normal 2.5-4.9 [facility] Comment on above: Result Comment: The performance characteristics of phosphorus testing in heparinized plasma have been validated by the individual laboratory site where testing is performed. Testing on heparinized plasma is not approved by the FDA; however, such approval is not necessary. Performed By: #### -7 #### BEVERLEY SCHMOTZER L ([id number]) [facility] ([facility] [place]) [address] [place] [address] Potassium [Moles/Vol] 3.9 mmol/L Normal 3.5-5.3 [facility] Comment on above: Performed By: #### 6 00-7 #### BEVERLEY SCHMOTZER L ([id number]) [facility] ([facility] [place] [address] [place] [address] Sodium [Moles/Vol] 146 mmol/L High 136-145 [facility] Comment on above: Performed By: #### 6 00-7 #### BEVERLEY SCHMOTZER L ([id number]) [facility] ([facility] [place]) [address] [place] [address] 12529 Urea nitrogen [Mass/Vol] 9 mg/dL Normal 6-23 [facility] Comment on above: Performed By: #### 6 00-7 #### BEVERLEY SCHMOTZER L ([id number]) [facility] ([facility] [place]) [address] [place] [address] 41483 US ABDOMEN LIMITED LIVERon 1 11-19-2022 US ABDOMEN LIMITED LIVER Interpreted By: Steven Chacon and Ebai Jerky STUDY: US ABDOMEN LIMITED LIVER; [facility] US ABDOMINAL/PELVIC DUPLEX COMPLETE; 09/19/2023 6:30 pm INDICATION: 72 y/o F with Signs/Symptoms:Throbocyto penia workup; Signs/Symptoms:per doctor request. COMPARISON: None. ACCESSION NUMBER(S): [id number]; [id number] ORDERING CLINICIAN: KANG JULIAN TECHNIQUE: Multiple images of the right upper quadrant were obtained. Gates scale, color Doppler and spectral Doppler waveform analysis was performed. This examination was interpreted at [facility] FINDINGS: The liver measures 22.6 cm and [...] as stated. This study was interpreted at [facility], [place], [place]. MACRO: None Signed by: Steven Chacon 09/20/2023 5:44 AM Dictation workstation: [id number] Normal [facility] Comment on above: Order Comment: Pleas e include portal vein flow velocitys [facility] US ABDOMINAL/PELVIC DUP SRINATH COMPLETEon 09-19-2023 VAS US ABDOMINAL/PELVIC DUPLEX COMPLETE Interpreted By: Steven Chacon, and Kim Sheikh STUDY: US ABDOMEN LIMITED LIVER; VASC US ABDOMINAL/PELVIC DUPLEX COMPLETE; 09/19/2023 6:30 pm INDICATION: 72 y/o F with Signs/Symptoms:Throbocyto penia workup; Signs/Symptoms:per doctor request. COMPARISON: None. ACCESSION NUMBER(S): [id number]; [id number] ORDERING CLINICIAN: KANG JULIAN TECHNIQUE: Multiple images of the right upper quadrant were obtained. Gates scale, color Doppler and spectral Doppler waveform analysis was performed. This examination was interpreted at [facility] FINDINGS: The liver measures 22.6 cm and [...] as stated. This study was interpreted at [place], [place]. MACRO: None Signed by: Steven Chacon 09/20/2023 5:44 AM Dictation workstation: [id number] [facility] Comment on above: Order Comment: Pleas e include portal vein flow velocitys XR CHEST 1 VIEWon 09-19-2023 XR CHEST 1 VIEW Interpreted By: Delfin Clemens and [place] Lesley STUDY: XR CHEST 1 VIEW; 09/19/2023 8:46 am INDICATION: Signs/Symptoms:copd on oxygen. COMPARISON: Outside hospital CT chest 03/20/2014 ACCESSION NUMBER(S): [id number] ORDERING CLINICIAN: RIMA APPLE FINDINGS: Single AP [...] as stated. This study was interpreted at [facility], [place], [place]. MACRO: None Signed by: Delfin Menezes 09/19/2023 9:36 AM Dictation workstation: [id number] Normal [facility] XR Chest Single viewon 09-19 [facility] RBC (Bld) [#/Vol] 2.64 10*6/uL [facility] WBC (Bld) [#/Vol] 4.2 10*3/uL [facility] Erythrocyte distribution width (RBC) [Ratio] 13.8 % Normal 11.5-14.5 [facility] Comment on above: Performed By: #### 2 4323-8 #### BEVERLEY Poe ([id number]) [facility] ([facility]) [address] [place] [address] 25320 Hematocrit (Bld) [Volume fraction] 26.9 % Low 36.0-46.0 [facility] Comment on above: Performed By: #### 2 4323-8 #### BEVERLEY Poe ([id number]) [facility] ([facility]) [id number] [place] [address] 63303 Hemoglobin (Bld) [Mass/Vol] 8.0 g/dL Low 12.0-16.0 [facility] Comment on above: Performed By: #### 2 4323-8 #### BEVERLEY Poe ([id number]) [facility] ([facility]) [address] [place] [address] 44587 MCH (RBC) [Entitic mass] 30.3 pg Normal 26.0-34.0 [facility] Comment on above: Performed By: #### 2 4323-8 #### BEVERLEY Poe ([id number]) [facility] ([facility] [place]) [address] [place] [address] 81280 MCHC (RBC) [Mass/Vol] 29.7 g/dL Low 32.0-36.0 [facility] Comment on above: Performed By: #### 2 4323-8 #### BEVERLEY Poe ([id number]) [facility] ([facility] [place]) [address] [place] [address] 84910 MCV (RBC) [Entitic vol] 102 fL High 80-100 [facility] Comment on above: Performed By: #### 2 4323-8 #### BEVERLEY Poe ([id number]) [facility] ([facility] [place]) [address] [place] [address] 17323 Nucleated RBC/100 WBC (Bld) [Ratio] 0.0 /100 WBCs Normal 0.0-0.0 [facility] Comment on above: Performed By: #### 2 4323-8 #### BEVERLEY Poe ([id number]) [facility] ([facility] [place]) [address] [place] [address] 50381 Platelets (Bld) [#/Vol] 91 x10*3/uL Low 150-450 [facility] Comment on above: Performed By: #### 2 4323-8 #### BEVERLEY Poe ([id number]) [facility] ([facility] [place]) [address] [place] [address] 10653 RBC (Bld) [#/Vol] 2.64 x10*6/uL Low 4.00-5.20 [facility] Comment on above: Performed By: #### 2 4323-8 #### BEVERLEY Poe ([id number]) [facility] ([facility] [place]) [address] [place] [address] 14914 WBC (Bld) [#/Vol] 4.2 x10*3/uL Low 4.4-11.3 [facility] Comment on above: Performed By: #### 2 4323-8 #### BEVERLEY Poe ([id number]) [facility] ([facility] [place]) [address] [place] [address] 59300 Cancer Ag 125on 09-18-2023 Cancer Ag 125 Qn 22.0 [arb'U]/mL Normal 0.0-30.2 [facility] Comment on above: Order Comment: CA 12 5 testing is performed by chemiluminescent immunoassay using the Picplum. Values obtained with different analytic methods cannot [...] By: #### 3 4532-2 #### BEVERLEY Poe ([id number]) [facility] ([facility]) [address] [place] [address] 46660 Ferritinon 09-18-2023 Ferritin [Mass/Vol] 344 ng/mL High 8 - 150 ng/mL [facility] Ferritin [Mass/Vol] 344 ng/mL High 8-150 [facility] Comment on above: Performed By: #### 5 7021-8 #### BEVERLEY Poe ([id number]) [facility] ([facility] [place]) [address] [place] [address] 03139 Glucose Test strip manual (B ld) [Mass/Vol]on 09-18-2023 Glucose [Mass/Vol] 119 mg/dL High 74 - 99 mg/dL [facility] Interpretation and review of laboratory results Abnormal [facility] Glucose [Mass/Vol] 119 mg/dL High 74-99 [facility] Comment on above: Performed By: #### 5 7021-8 #### BEVERLEY Poe ([id number]) [facility] ([facility] [place]) [address] [place] [address] 33740 Glucose [Mass/Vol] 135 mg/dL High 74 - 99 mg/dL [facility] Interpretation and review of laboratory results Abnormal [facility] Glucose [Mass/Vol] 135 mg/dL High 74-99 [facility] Comment on above: Performed By: #### 2 4323-8 #### BEVERLEY Poe ([id number]) [facility] ([facility] [place]) [address] [place] [address] 36920 Glucose [Mass/Vol] 108 mg/dL High 74 - 99 mg/dL [facility] Interpretation and review of laboratory results Abnormal [facility] Glucose [Mass/Vol] 108 mg/dL High 74-99 [facility] Comment on above: Performed By: #### 2 4323-8 #### BEVERLEY Poe ([id number]) [facility] ([facility] [place]) [address] [place] [address] 75472 HbA1c (Bld) [Mass fraction]o n 09-18-2023 Average glucose Estimated from glycated hemoglobin (Bld) [Mass/Vol] 91 mg/dL Not Established [facility] Average glucose Estimated from glycated hemoglobin (Bld) [Mass/Vol] 91 mg/dL Normal Not Established [facility] Comment on above: Order Comment: Diagn osis of Cmvmbwyo-KjnbbeGgo-Ciicpgne: < or = 5.6%Increased risk for developing diabetes: 5.7-6.4%Diagnostic of diabetes: > or = 6.5%Monitoring of DiabetesAge (y)....................... Therapeutic Goal (%)Adults: >18.........................<7.0Pediatrics: 13-18...................<7.5Pediatrics: 7-12....................<8.0Pediatrics: 0-6..................... 7.5-8.5American Diabetes Association. Diabetes Care 33(S1)Nov 2009 Performed By: #### 2 4323-8 #### BEVERLEY Poe ([id number]) [facility] ([facility] [place]) [address] [place] [phone] Hemoglobin A1con 09-18-2023 HbA1c (Bld) [Mass fraction] 4.8 % see below [facility] Hemoglobin A1c/Hemoglobin.to daphne 09-18-2023 HbA1c (Bld) [Mass fraction] 4.8 % Normal see below [facility] Comment on above: Order Comment: Diagn osis of Zridcroc-HbprlcIrd-Uwuaedhp: < or = 5.6%Increased risk for developing diabetes: 5.7-6.4%Diagnostic of diabetes: > or = 6.5%Monitoring of DiabetesAge (y)....................... Therapeutic Goal (%)Adults: >18.........................<7.0Pediatrics: 13-18...................<7.5Pediatrics: 7-12....................<8.0Pediatrics: 0-6..................... 7.5-8.5American Diabetes Association. Diabetes Care 33(S1), Nov 2009 Performed By: #### 2 4323-8 #### BEVERLEY Poe ([id number]) [facility] ([facility] [place]) [address] [place] [address] Hepatic function 2000 panelo n 09-18-2023 Albumin [...] Low 6.4 - 8.2 g/dL [facility] Albumin BCP dye [Mass/Vol] 2.7 g/dL Low 3.4-5.0 [facility] Comment on above: Performed By: #### 2 4323-8 #### BEVERLEY Poe ([id number]) [facility] ([facility] [place]) [address] [place] [address] ALP [Catalytic activity/Vol] 47 U/L Normal 33-136 [facility] Comment on above: Performed By: #### 2 4323-8 #### BEVERLEY Poe ([id number]) [facility] ([facility] [place]) [address] [place] [address] 77790 ALT With P-5'-P [Catalytic activity/Vol] 7 U/L Normal 7-45 [facility] Comment on above: Result Comment: Ирина ents treated with Sulfasalazine may generate falsely decreased results for ALT. Performed By: #### 2 4323-8 #### BEVERLEY Poe ([id number]) [facility] ([facility] [place]) [address] [place] [address] AST With P-5'-P [Catalytic activity/Vol] 10 U/L Normal 9-39 [facility] Comment on above: Performed By: #### 2 4323-8 #### BEVERLEY Poe ([id number]) [facility] ([facility] [place]) [address] [place] [address] Bilirubin [Mass/Vol] 0.4 mg/dL Normal 0.0-1.2 [facility] Comment on above: Performed By: #### 2 4323-8 #### BEVERLEY Poe ([id number]) [facility] ([facility] [place]) [address] [place] [address] 28904 Bilirubin.direct [Mass/Vol] 0.1 mg/dL Normal 0.0-0.3 [facility] Comment on above: Performed By: #### 2 4323-8 #### BEVERLEY Poe ([id number]) [facility] ([facility] [place]) [address] [place] [address] 66213 Protein [Mass/Vol] 5.7 g/dL Low 6.4-8.2 [facility] Comment on above: Performed By: #### 2 4323-8 #### BEVERLEY Poe ([id number]) [facility] ([facility] [place] [address] [place], [place] [phone] Hepatitis B virus surface Ag on 09-18-2023 HBV surface Ag IA Ql Non-Reactive Normal Nonreactive [facility] Comment on above: Result Comment: Biot in interference may cause falsely decreased results. Patients taking a Biotin dose of up to 5 mg/day should refrain from taking Biotin for 24 hours before sample collection. Providers may contact their local laboratory for further information. Performed By: #### 6 00-7 #### BEVERLEY Poe ([id number]) [facility] ([facility] [place]) [address] [place], [place] [phone] Iron and Iron binding capaci ty panelon [...] Hospital Iron [Mass/Vol] 33 ug/dL Low 35-150 [facility] Comment on above: Performed By: #### 5 7021-8 #### BEVERLEY Poe ([id number]) [facility] ([facility] [place]) [address] [place] [address] 62789 Iron binding capacity [Mass/Vol] 164 ug/dL Low 240-445 [facility] Comment on above: Performed By: #### 5 7021-8 #### BEVERLEY Poe ([id number]) [facility] ([facility] [place]) [address] [place] [address] 14226 Iron binding capacity.unsaturated [Mass/Vol] 131 ug/dL Normal 110-370 [facility] Comment on above: Performed By: #### 5 7021-8 #### BEVERLEY Poe ([id number]) [facility] ([facility] [place]) [address] [place] [address] 23826 Iron saturation [Mass fraction] 20 % Low 25-45 [facility] Comment on above: Performed By: #### 5 7021-8 #### BEVERLEY Poe ([id number]) [facility] ([facility] [place]) [address] [place] [address] 51142 Magnesiumon 09-18-2023 Magnesium [Mass/Vol] 1.80 mg/dL 1.60 - 2.40 mg/dL [facility] Magnesium [Mass/Vol] 1.80 mg/dL Normal 1.60-2.40 [facility] Comment on above: Performed By: #### 2 4323-8 #### BEVERLEY Poe ([id number]) [facility] ([facility] [place]) [address] [place] [address] 25165 Magnesium [Mass/Vol]on 09-18 Interpretation and review of laboratory results Normal [facility] Natriuretic peptide B [Mass/ Vol]on 09-18-2023 Interpretation and review of laboratory results Abnormal [facility] Natriuretic peptide B (Bld) [Mass/Vol] 144 pg/mL High 0 - 99 pg/mL [facility] Natriuretic peptide B (Bld) [Mass/Vol] 144 pg/mL High 0-99 [facility] Comment on above: Order Comment: <100 pg/mL - Heart failure plchattr404-817 pg/mL - Intermediate probability of acute heart [...] By: #### 5 7021-8 #### BEVERLEY Poe ([id number]) [facility] ([facility] [place]) [address] [place] [address] No Panel Informationon 09-18 Interpretation and review of laboratory results Abnormal [facility] Prealbuminon 09-18-2023 Prealbumin [Mass/Vol] 11.4 mg/dL Low 18.0 - 40.0 mg/dL [facility] Prealbumin [Mass/Vol] 11.4 mg/dL Low 18.0-40.0 [facility] Comment on above: Performed By: #### 5 7021-8 #### BEVERLEY Poe ([id number]) [facility] ([facility] [place]) [address] [place] [address] Prealbumin [Mass/Vol]on Interpretation and review of laboratory results Abnormal [facility] Renal function 2000 panelon 09-18-2023 Albumin BCP [...] BCP dye [Mass/Vol] 2.8 g/dL Low 3.4-5.0 [facility] Comment on above: Performed By: #### 2 4323-8 #### BEVERLEY Poe ([id number]) [facility] ([facility] [place]) [address] [place] [address] 42822 Anion gap [Moles/Vol] 12 mmol/L Normal 10-20 [facility] Comment on above: Performed By: #### 2 4323-8 #### BEVERLEY Poe ([id number]) [facility] ([facility] [place]) [address] [place] [address] 20099 Calcium [Mass/Vol] 8.6 mg/dL Normal 8.6-10.6 [facility] Comment on above: Performed By: #### 2 4323-8 #### BEVERLEY DODD L ([id number]) [facility] ([facility] [place]) [address] [place] [address] 24875 Chloride [Moles/Vol] 99 mmol/L Normal 98-107 [facility] Comment on above: Performed By: #### 2 4323-8 #### BEVERLEY Poe ([id number]) [facility] ([facility] [place]) [address] [place] [address] 50363 CO2 [Moles/Vol] 39 mmol/L High 21-32 [facility] Comment on above: Performed By: #### 2 4323-8 #### BEVERLEY Poe ([id number]) [facility] ([facility]) [address] [place] [address] Creatinine [Mass/Vol] 0.37 mg/dL Low 0.50-1.05 [facility] Comment on above: Performed By: #### 2 4323-8 #### BEVERLEY Poe ([id number]) [facility] ([facility] [place]) [address] [place] [address] GFR/1.73 sq M.predicted MDRD (S/P/Bld) [Vol rate/Area] mL/min/{1.73_m2} Normal >60 [facility] Comment on above: Result Comment: Calc ulations of estimated GFR are performed using the 2020 CKD-EPI Study Refit equation without the race variable for the IDMS-Traceable creatinine methods. https://jasn.asnjournals.org/content//ASN.15550 29920 Performed By: #### 2 4323-8 #### BEVERLEY Poe ([id number]) [facility] ([facility]) [address] [place] [address] Glucose [Mass/Vol] 99 mg/dL Normal 74-99 [facility] Comment on above: Performed By: #### 2 4323-8 #### BEVERLEY Poe ([id number]) [facility] ([facility] [place]) [address] [place] [address] Phosphate [Mass/Vol] 2.8 mg/dL Normal 2.5-4.9 [facility] Comment on above: Result Comment: The performance characteristics of phosphorus testing in heparinized plasma have been validated by the individual laboratory site where testing is performed. Testing on heparinized plasma is not approved by the FDA; however, such approval is not necessary. Performed By: #### 2 4323-8 #### BEVERLEY Poe ([id number]) [facility] ([facility]) [address] [place] [address] Potassium [Moles/Vol] 3.6 mmol/L Normal 3.5-5.3 [facility] Comment on above: Performed By: #### 2 4323-8 #### BEVERLEY Poe ([id number]) [facility] ([facility]) [address] [place] [address] Sodium [Moles/Vol] 146 mmol/L High 136-145 [facility] Comment on above: Performed By: #### 2 4323-8 #### BEVERLEY Poe ([id number]) [facility] ([facility] [place]) [address] [place] [address] Urea nitrogen [Mass/Vol] 11 mg/dL Normal 6-23 [facility] Comment on above: Performed By: #### 2 4323-8 #### BEVERLEY Poe ([id number]) [facility] ([facility] [place]) [address] [place] [address] 33967 CBC panel Auto (Bld)on 09-17 Erythrocyte distribution [...] [facility] RBC (Bld) [#/Vol] 2.68 10*6/uL [facility] WBC (Bld) [#/Vol] 3.7 10*3/uL [facility] Erythrocyte distribution width (RBC) [Ratio] 13.8 % Normal 11.5-14.5 [facility] Comment on above: Performed By: #### 1 9123-9 #### BEVERLEY Poe ([id number]) [facility] ([facility] [place]) [address] [place] [address] 98396 Hematocrit (Bld) [Volume fraction] 27.0 % Low 36.0-46.0 [facility] Comment on above: Performed By: #### 1 9123-9 #### BEVERLEY Poe ([id number]) [facility] ([facility]) [address] [place] [address] 18370 Hemoglobin (Bld) [Mass/Vol] 8.2 g/dL Low 12.0-16.0 [facility] Comment on above: Performed By: #### 1 9123-9 #### BEVERLEY Poe ([id number]) [facility] ([facility] [place]) [address] [place] [address] 11920 MCH (RBC) [Entitic mass] 30.6 pg Normal 26.0-34.0 [facility] Comment on above: Performed By: #### 1 9123-9 #### BEVERLEY Poe ([id number]) [facility] ([facility] [place]) [address] [place] [address] 30551 MCHC (RBC) [Mass/Vol] 30.4 g/dL Low 32.0-36.0 [facility] Comment on above: Performed By: #### 1 9123-9 #### BEVERLEY Poe ([id number]) [facility] ([facility] [place]) [address] [place] [address] 01112 MCV (RBC) [Entitic vol] 101 fL High 80-100 [facility] Comment on above: Performed By: #### 1 9123-9 #### BEVERLEY Poe ([id number]) [facility] ([facility] [place]) [address] [place] [address] 16734 Nucleated RBC/100 WBC (Bld) [Ratio] 0.0 /100 WBCs Normal 0.0-0.0 [facility] Comment on above: Performed By: #### 1 9123-9 #### BEVERLEY Poe ([id number]) [facility] ([facility]) [address] [place] [address] 37227 Platelets (Bld) [#/Vol] 88 x10*3/uL Low 150-450 [facility] Comment on above: Performed By: #### 1 9123-9 #### BEVERLEY Poe ([id number]) [facility] ([facility] [place]) [address] [place] [address] 47516 RBC (Bld) [#/Vol] 2.68 x10*6/uL Low 4.00-5.20 [facility] Comment on above: Performed By: #### 1 9123-9 #### BEVERLEY Poe ([id number]) [facility] ([facility]) [address] [place] [address] 17166 WBC (Bld) [#/Vol] 3.7 x10*3/uL Low 4.4-11.3 [facility] Comment on above: Performed By: #### 1 9123-9 #### BEVERLEY Poe ([id number]) [facility] ([facility]) [address] [place] [address] 93657 Glucose Test strip manual (B ld) [Mass/Vol]on 09-17-2023 Glucose [Mass/Vol] 142 mg/dL High 74 - 99 mg/dL [facility] Interpretation and review of laboratory results Abnormal [facility] Glucose [Mass/Vol] 142 mg/dL High 74-99 [facility] Comment on above: Performed By: #### 2 4323-8 #### BEVERLEY Poe ([id number]) [facility] ([facility]) [address] [place] [address] 79644 Glucose [Mass/Vol] 117 mg/dL High 74 - 99 mg/dL [facility] Interpretation and review of laboratory results Abnormal [facility] Glucose [Mass/Vol] 117 mg/dL High 74-99 [facility] Comment on above: Performed By: #### 2 4323-8 #### BEVERLEY Poe ([id number]) [facility] ([facility]) [address] [place] [address] 74851 Glucose [Mass/Vol] 138 mg/dL High 74 - 99 mg/dL [facility] Interpretation and review of laboratory results Abnormal [facility] Glucose [Mass/Vol] 138 mg/dL High 74-99 [facility] Comment on above: Performed By: #### 2 4323-8 #### BEVERLEY Poe ([id number]) [facility] ([facility]) [address] [place] [address] 94023 Glucose [Mass/Vol] 96 mg/dL 74 - 99 mg/dL [facility] Interpretation and review of laboratory results Normal [facility] Glucose [Mass/Vol] 96 mg/dL Normal 74-99 [facility] Comment on above: Performed By: #### 1 9123-9 #### BEVERLEY Poe ([id number]) [facility] ([facility]) [address] [place] [address] 90208 Magnesiumon 09-17-2023 Magnesium [Mass/Vol] 2.00 mg/dL 1.60 - 2.40 mg/dL [facility] Magnesium [Mass/Vol] 2.00 mg/dL Normal 1.60-2.40 [facility] Comment on above: Performed By: #### 1 9123-9 #### BEVERLEY Poe ([id number]) [facility] ([facility]) [address] [place] [address] 47895 Magnesium [Mass/Vol]on 09-17 Interpretation and review of [...] BCP dye [Mass/Vol] 2.9 g/dL Low 3.4-5.0 [facility] Comment on above: Performed By: #### 1 9123-9 #### BEVERLEY Poe ([id number]) [facility] ([facility]) [address] [place] [address] 84115 Anion gap [Moles/Vol] 11 mmol/L Normal 10-20 [facility] Comment on above: Performed By: #### 1 9123-9 #### BEVERLEY Poe ([id number]) [facility] ([facility]) [address] [place] [address] Calcium [Mass/Vol] 8.7 mg/dL Normal 8.6-10.6 [facility] Comment on above: Performed By: #### 1 9123-9 #### BEVERLEY Poe ([id number]) [facility] ([facility] [address] [place] [address] Chloride [Moles/Vol] 100 mmol/L Normal 98-107 [facility] Comment on above: Performed By: #### 1 9123-9 #### BEVERLEY Poe ([id number]) [facility] ([facility]) [address] [place] [address] 42602 CO2 [Moles/Vol] 40 mmol/L Critically high 21-32 [facility] Comment on above: Performed By: #### 1 9123-9 #### BEVERLEY Poe ([id number]) [facility] ([facility]) [address] [place] [address] 80348 Creatinine [Mass/Vol] 0.32 mg/dL Low 0.50-1.05 [facility] Comment on above: Performed By: #### 1 9123-9 #### BEVERLEY Poe ([id number]) [facility] ([facility]) [address] [place] [address] 64801 GFR/1.73 sq M.predicted MDRD (S/P/Bld) [Vol rate/Area] mL/min/{1.73_m2} Normal >60 [facility] Comment on above: Result Comment: Calc ulations of estimated GFR are performed using the 2020 CKD-EPI Study Refit equation without the race variable for the IDMS-Traceable creatinine methods. https://jasn.asnjournals.org/content/early//ASN.06779 96014 Performed By: #### 1 9123-9 #### BEVERLEY Poe ([id number]) [facility] ([facility]) [address] [place] [address] 32166 Glucose [Mass/Vol] 95 mg/dL Normal 74-99 [facility] Comment on above: Performed By: #### 1 9123-9 #### BEVERLEY Poe ([id number]) [facility] ([facility]) [address] [place] [address] 57994 Phosphate [Mass/Vol] 3.8 mg/dL Normal 2.5-4.9 [facility] Comment on above: Result Comment: The performance characteristics of phosphorus testing in heparinized plasma have been validated by the individual laboratory site where testing is performed. Testing on heparinized plasma is not approved by the FDA; however, such approval is not necessary. Performed By: #### 1 9123-9 #### BEVERLEY Poe ([id number]) [facility] ([facility] [place]) [address] [place] [address] 02590 Potassium [Moles/Vol] 3.8 mmol/L Normal 3.5-5.3 [facility] Comment on above: Performed By: #### 1 9123-9 #### BEVERLEY Poe ([id number]) [facility] ([facility] [place] [address] [place] [address] 48866 Sodium [Moles/Vol] 147 mmol/L High 136-145 [facility] Comment on above: Performed By: #### 1 9123-9 #### BEVERLEY Poe ([id number]) [facility] ([facility] [place] [address] [place] [address] 40547 Urea nitrogen [Mass/Vol] 10 mg/dL Normal 6-23 [facility] Comment on above: Performed By: #### 1 9123-9 #### BEVERLEY Poe ([id number]) [facility] ([facility] [place] [address] [place] [address] 39612 Blood type and Indirect anti body screen panel (Bld)on 09-16-2023 ABO group Nom (Bld) O [facility] Blood group antibody screen Ql Negative [facility] D Ag Ql (Bld) Positive [facility] CBC panel Auto (Bld)on 09-16 Erythrocyte distribution [facility] RBC (Bld) [#/Vol] 2.84 10*6/uL [facility] WBC (Bld) [#/Vol] 3.4 10*3/uL [facility] Erythrocyte distribution width (RBC) [Ratio] 13.9 % Normal 11.5-14.5 [facility] Comment on above: Performed By: #### 1 9123-9 #### BEVERLEY Poe ([id number]) [facility] ([facility] [place] [address] [place] [address] 26389 Hematocrit (Bld) [Volume fraction] 29.3 % Low 36.0-46.0 [facility] Comment on above: Performed By: #### 1 9123-9 #### BEVERLEY Poe ([id number]) [facility] ([facility] [place] [address] [place] [address] 15098 Hemoglobin (Bld) [Mass/Vol] 8.5 g/dL Low 12.0-16.0 [facility] Comment on above: Performed By: #### 1 9123-9 #### BEVERLEY Poe ([id number]) [facility] ([facility] [place]) [address] [place] [address] 44697 MCH (RBC) [Entitic mass] 29.9 pg Normal 26.0-34.0 [facility] Comment on above: Performed By: #### 1 9123-9 #### BEVERLEY Poe ([id number]) [facility] ([facility] [place]) [address] [place] [address] 89509 MCHC (RBC) [Mass/Vol] 29.0 g/dL Low 32.0-36.0 [facility] Comment on above: Performed By: #### 1 9123-9 #### BEVERLEY Poe ([id number]) [facility] ([facility] [place]) [address] [place] [address] 12006 MCV (RBC) [Entitic vol] 103 fL High 80-100 [facility] Comment on above: Performed By: #### 1 9123-9 #### BEVERLEY Poe ([id number]) [facility] ([facility] [place]) [address] [place] [address] 38618 Nucleated RBC/100 WBC (Bld) [Ratio] 0.0 /100 WBCs Normal 0.0-0.0 [facility] Comment on above: Performed By: #### 1 9123-9 #### BEVERLEY Poe ([id number]) [facility] ([facility] [place]) [address] [place] [address] 77468 Platelets (Bld) [#/Vol] 93 x10*3/uL Low 150-450 [facility] Comment on above: Performed By: #### 1 9123-9 #### BEVERLEY Poe ([id number]) [facility] ([facility] [place]) [address] [place] [address] 67918 RBC (Bld) [#/Vol] 2.84 x10*6/uL Low 4.00-5.20 [facility] Comment on above: Performed By: #### 1 9123-9 #### BEVERLEY Poe ([id number]) [facility] ([facility] [place]) [address] [place] [address] 25655 WBC (Bld) [#/Vol] 3.4 x10*3/uL Low 4.4-11.3 [facility] Comment on above: Performed By: #### 1 9123-9 #### BEVERLEY Poe ([id number]) [facility] ([facility] [place]) [address] [place] [address] 20738 Carcinoembryonic Agon 2022 Carcinoembryonic Ag [Mass/Vol] ng/mL Normal [facility] Comment on above: Order Comment: REF V ALUES NONSMOKERS 0-2.5 SMOKERS 0-5.0CEA testing is performed by chemiluminescent immunoassay using the Siemens AutoUncle. Values obtained with different analytic methods cannot [...] By: #### 1 9123-9 #### BEVERLEY Poe ([id number]) [facility] ([facility] [place]) [address] [place] [address] 17920 Carcinoembryonic Ag [Mass/Vo l]on 09-16-2023 [facility] Carcinoembryonic Antigenon 1 11-16-2022 Carcinoembryonic Ag [Mass/Vol] ug/L ug/L [facility] Glucose Test strip manual (B ld) [Mass/Vol]on 09-16-2023 Glucose [Mass/Vol] 96 mg/dL 74 - 99 mg/dL [facility] Interpretation and review of laboratory results Normal [facility] Glucose [Mass/Vol] 96 mg/dL Normal 74-99 [facility] Comment on above: Performed By: #### 1 9123-9 #### BEVERLEY Poe ([id number]) [facility] ([facility] [place] [address] [place] [address] 61856 Glucose [Mass/Vol] 94 mg/dL 74 - 99 mg/dL [facility] Interpretation and review of laboratory results Normal [facility] Glucose [Mass/Vol] 94 mg/dL Normal 74-99 [facility] Comment on above: Performed By: #### 1 9123-9 #### BEVERLEY Poe ([id number]) [facility] ([facility] [place]) [address] [place] [address] 61170 Glucose [Mass/Vol] 98 mg/dL 74 - 99 mg/dL [facility] Interpretation and review of laboratory results Normal [facility] Glucose [Mass/Vol] 98 mg/dL Normal 74-99 [facility] Comment on above: Performed By: #### 2 341-6 #### BEVERLEY Poe ([id number]) [facility] ([facility] [place]) [address] [place] [address] 73322 Glucose [Mass/Vol] 92 mg/dL 74 - 99 mg/dL [facility] Interpretation and review of laboratory results Normal [facility] Glucose [Mass/Vol] 92 mg/dL Normal 74-99 [facility] Comment on above: Performed By: #### 2 341-6 #### BEVERLEY Poe ([id number]) [facility] ([facility] [place]) [address] [place] [address] 05486 Glucose [Mass/Vol] 88 mg/dL 74 - 99 mg/dL [facility] Interpretation and review of laboratory results Normal [facility] Glucose [Mass/Vol] 88 mg/dL Normal 74-99 [facility] Comment on above: Performed By: #### 2 341-6 #### BEVERLEY Poe ([id number]) [facility] ([facility] [place]) [address] [place] [address] 00812 Magnesiumon 09-16-2023 Magnesium [Mass/Vol] 2.04 mg/dL 1.60 - 2.40 mg/dL [facility] Magnesium [Mass/Vol] 2.04 mg/dL Normal 1.60-2.40 [facility] Comment on above: Performed By: #### 1 9123-9 #### BEVERLEY Poe ([id number]) [facility] ([facility] [place]) [address] [place] [address] 08884 Magnesium [Mass/Vol]on 09-16 Interpretation and review of [...] BCP dye [Mass/Vol] 3.0 g/dL Low 3.4-5.0 [facility] Comment on above: Performed By: #### 1 9123-9 #### BEVERLEY Poe ([id number]) [facility] ([facility] [place] [address] [place] [address] 76425 Anion gap [Moles/Vol] 10 mmol/L Normal 10-20 [facility] Comment on above: Performed By: #### 1 9123-9 #### BEVERLEY Poe ([id number]) [facility] ([facility] [place]) [address] [place] [address] 89136 Calcium [Mass/Vol] 8.8 mg/dL Normal 8.6-10.6 [facility] Comment on above: Performed By: #### 1 9123-9 #### BEVERLEY Poe ([id number]) [facility] ([facility] [place]) [address] [place] [address] Chloride [Moles/Vol] 99 mmol/L Normal 98-107 [facility] Comment on above: Performed By: #### 1 9123-9 #### BEVERLEY DODD L ([id number]) [facility] ([facility] [place]) [address] [place] [address] CO2 [Moles/Vol] 40 mmol/L Critically high 21-32 [facility] Comment on above: Performed By: #### 1 9123-9 #### BEVERLEY Poe ([id number]) [facility] ([facility] [place]) [address] [place] [address] Creatinine [Mass/Vol] 0.40 mg/dL Low 0.50-1.05 [facility] Comment on above: Performed By: #### 1 9123-9 #### BEVERLEY Poe ([id number]) [facility] ([facility] [place]) [address] [place] [address] GFR/1.73 sq M.predicted MDRD (S/P/Bld) [Vol rate/Area] mL/min/{1.73_m2} Normal >60 [facility] Comment on above: Result Comment: Calc ulations of estimated GFR are performed using the 2020 CKD-EPI Study Refit equation without the race variable for the IDMS-Traceable creatinine methods. https://jasn.asnjournals.org/content//ASN.38585 97999 Performed By: #### 1 9123-9 #### BEVERLEY Poe ([id number]) [facility] ([facility] [place]) [address] [place] [address] Glucose [Mass/Vol] 88 mg/dL Normal 74-99 [facility] Comment on above: Performed By: #### 1 9123-9 #### BEVERLEY Poe ([id number]) [facility] ([facility] [place]) [address] [place] [address] Phosphate [Mass/Vol] 3.1 mg/dL Normal 2.5-4.9 [facility] Comment on above: Result Comment: The performance characteristics of phosphorus testing in heparinized plasma have been validated by the individual laboratory site where testing is performed. Testing on heparinized plasma is not approved by the FDA; however, such approval is not necessary. Performed By: #### 1 9123-9 #### BEVERLEY Poe ([id number]) [facility] ([facility] [place]) [address] [place] [address] 33162 Potassium [Moles/Vol] 3.7 mmol/L Normal 3.5-5.3 [facility] Comment on above: Performed By: #### 1 9123-9 #### BEVERLEY Poe ([id number]) [facility] ([facility] [place]) [address] [place] [address] 20562 Sodium [Moles/Vol] 145 mmol/L Normal 136-145 [facility] Comment on above: Performed By: #### 1 9123-9 #### BEVERLEY Poe ([id number]) [facility] ([facility] [place]) [address] [place] [address] 14881 Urea nitrogen [Mass/Vol] 12 mg/dL Normal 6-23 [facility] Comment on above: Performed By: #### 1 9123-9 #### BEVERLEY Poe ([id number]) [facility] ([facility] [place]) [address] [place] [address] 30172 Bacteria identifiedon 2022 Bacteria identified Cx Nom (Bld) Test: Blood Culture Specimen Source: Peripheral Venipuncture Specimen Type: Blood culture Specimen Date: 09/15/2023 9:24 PM Result Date: 09/19/2023 10:01 PM Result Status: Final result Abnormal: No Resulting Lab: [facility] [address] [place] [address] 06264 CULTURE No growth at 4 days - FINAL REPORT [facility] Comment on above: Performed By: #### 6 00-7 #### BEVERLEY Poe ([id number]) [facility] ([facility] [place]) [address] [place] [address] 12384 Basophil percentageOrdered B y: Calvin Hester on 09-15-2023 Lactate [Moles/Vol] 0.6 mmol/L 0.4-2.0 [facility] Basophil percentage 10-25 SEEN /hpf 0-5 [facility] Bilirubin Test strip Ql (U)O rdered By: Calvin Hester on 09-15-2023 Bilirubin Ql (U) Negative Negative [facility] Blood type and Indirect anti body screen panel (Bld)on 09-15-2023 ABO group Nom (Bld) O Normal [facility] Comment on above: Performed By: #### 3 4532-2 #### BEVERLEY Poe ([id number]) [facility] ([facility]) [address] [place], [place] [phone] Blood group antibody screen Ql Negative [facility] Comment on above: Performed By: #### 3 4532-2 #### BEVERLEY Poe ([id number]) [facility] ([facility]) [address] [place], [place] [address] D Ag Ql (Bld) Positive [facility] Comment on above: Result Comment: 2nd ABO test required. Order and Collect VERAB Performed By: #### 3 4532-2 #### BEVERLEY Poe ([id number]) [facility] ([facility]) [address] [place] [address] 50108 CBC W Auto Differential pane l (Bld)on [facility] RBC (Bld) [#/Vol] 2.65 10*6/uL [facility] WBC (Bld) [#/Vol] 3.5 10*3/uL [facility] Basophils (Bld) [#/Vol] 0.01 x10*3/uL Normal 0.00-0.10 [facility] Comment on above: Performed By: #### 5 7021-8 #### BEVERLEY Poe ([id number]) [facility] ([facility] [place]) [address] [place] [address] 25192 Basophils/100 WBC (Bld) 0.3 % Normal 0.0-2.0 [facility] Comment on above: Performed By: #### 5 7021-8 #### BEVERLEY Poe ([id number]) [facility] ([facility] [place]) [address] [place] [address] 10496 Eosinophils (Bld) [#/Vol] 0.06 x10*3/uL Normal 0.00-0.40 [facility] Comment on above: Performed By: #### 5 7021-8 #### BEVERLEY Poe ([id number]) [facility] ([facility] [place]) [address] [place] [address] 24975 Eosinophils/100 WBC (Bld) 1.7 % Normal 0.0-6.0 [facility] Comment on above: Performed By: #### 5 7021-8 #### BEVERLEY Poe ([id number]) [facility] ([facility] [place]) [address] [place] [address] 70741 Erythrocyte distribution width (RBC) [Ratio] 13.9 % Normal 11.5-14.5 [facility] Comment on above: Performed By: #### 5 7021-8 #### BEVERLEY Poe ([id number]) [facility] ([facility] [place]) [address] [place] [address] 38332 Hematocrit (Bld) [Volume fraction] 27.8 % Low 36.0-46.0 [facility] Comment on above: Performed By: #### 5 7021-8 #### BEVERLEY Poe ([id number]) [facility] ([facility] [place]) [address] [place] [address] 93974 Hemoglobin (Bld) [Mass/Vol] 7.9 g/dL Low 12.0-16.0 [facility] Comment on above: Performed By: #### 5 7021-8 #### BEVERLEY Poe (09850) [facility] ([facility] [place]) [address] [place] [address] 64761 Immature granulocytes (Bld) [#/Vol] 0.02 x10*3/uL Normal 0.00-0.50 [facility] Comment on above: Performed By: #### 5 7021-8 #### BEVERLEY Poe ([id number]) [facility] ([facility] [place]) [address] [place] [address] 94301 Immature granulocytes/100 WBC (Bld) 0.6 % Normal 0.0-0.9 [facility] Comment on above: Result Comment: Sharda ture Granulocyte Count (IG) includes promyelocytes, myelocytes and metamyelocytes but does not include bands. Percent differential counts (%) should be interpreted in the context of the absolute cell counts (cells/UL). Performed By: #### 5 7021-8 #### BEVERLEY Poe ([id number]) [facility] ([facility] [place]) [address] [place] [address] 56210 Lymphocytes (Bld) [#/Vol] 0.67 x10*3/uL Low 0.80-3.00 [facility] Comment on above: Performed By: #### 5 7021-8 #### BEVERLEY Poe ([id number]) [facility] ([facility] [place]) [address] [place] [address] 26394 Lymphocytes/100 WBC (Bld) 19.2 % Normal 13.0-44.0 [facility] Comment on above: Performed By: #### 5 7021-8 #### BEVERLEY Poe ([id number]) [facility] ([facility] [place] [address] [place] [address] 94852 MCH (RBC) [Entitic mass] 29.8 pg Normal 26.0-34.0 [facility] Comment on above: Performed By: #### 5 7021-8 #### BEVERLEY Poe (45330) [facility] ([facility] [place]) [address] [place] [address] 53117 MCHC (RBC) [Mass/Vol] 28.4 g/dL Low 32.0-36.0 [facility] Comment on above: Performed By: #### 5 7021-8 #### BEVERLEY Poe ([id number]) [facility] ([facility] [place]) [address] [place] [address] MCV (RBC) [Entitic vol] 105 fL High 80-100 [facility] Comment on above: Performed By: #### 5 7021-8 #### BEVERLEY Poe (00155) [facility] ([facility] [place]) [address] [place] [address] 95380 Monocytes (Bld) [#/Vol] 0.23 x10*3/uL Normal 0.05-0.80 [facility] Comment on above: Performed By: #### 5 7021-8 #### BEVERLEY Poe ([id number]) [facility] ([facility] [place] [address] [place] [address] 62856 Monocytes/100 WBC (Bld) 6.6 % Normal 2.0-10.0 [facility] Comment on above: Performed By: #### 5 7021-8 #### BEVERLEY Poe ([id number]) [facility] ([facility] [place]) [address] [place] [address] 22030 Neutrophils (Bld) [#/Vol] 2.50 x10*3/uL Normal 1.60-5.50 [facility] Comment on above: Result Comment: Perc ent differential counts (%) should be interpreted in the context of the absolute cell counts (cells/uL). Performed By: #### 5 7021-8 #### BEVERLEY Poe ([id number]) [facility] ([facility] [place]) [address] [place] [address] 67234 Neutrophils/100 WBC (Bld) 71.6 % Normal 40.0-80.0 [facility] Comment on above: Performed By: #### 5 7021-8 #### BEVERLEY Poe (10754) [facility] ([facility] [place]) [address] [place] [address] Nucleated RBC/100 WBC (Bld) [Ratio] 0.0 /100 WBCs Normal 0.0-0.0 [facility] Comment on above: Performed By: #### 5 7021-8 #### BEVERLEY Poe ([id number]) [facility] ([facility] [place] [address] [place] [address] Platelets (Bld) [#/Vol] 123 x10*3/uL Low 150-450 [facility] Comment on above: Performed By: #### 5 7021-8 #### BEVERLEY Poe ([id number]) [facility] ([facility] [place] [address] [place] [address] RBC (Bld) [#/Vol] 2.65 x10*6/uL Low 4.00-5.20 [facility] Comment on above: Performed By: #### 5 7021-8 #### BEVERLEY Poe ([id number]) [facility] ([facility] [place] [address] [place] [address] WBC (Bld) [#/Vol] 3.5 x10*3/uL Low 4.4-11.3 [facility] Comment on above: Performed By: #### 5 7021-8 #### BEVERLEY Poe ([id number]) [facility] ([facility] [place]) [address] [place] [address] Comprehensive metabolic 2000 panelon 09-15-2023 Albumin BCP [...] BCP dye [Mass/Vol] 3.0 g/dL Low 3.4-5.0 [facility] Comment on above: Performed By: #### 2 4323-8 #### BEVERLEY Poe (86027) [facility] ([facility] [place]) [address] [place] [address] 23160 ALP [Catalytic activity/Vol] 47 U/L Normal 33-136 [facility] Comment on above: Performed By: #### 2 4323-8 #### BEVERLEY Poe ([id number]) [facility] ([facility] [place]) [address] [place] [address] 49811 ALT With P-5'-P [Catalytic activity/Vol] 10 U/L Normal 7-45 [facility] Comment on above: Result Comment: Ирина ents treated with Sulfasalazine may generate falsely decreased results for ALT. Performed By: #### 2 4323-8 #### BEVERLEY Poe (40203) [facility] ([facility] [place]) [address] [place] [address] Anion gap [Moles/Vol] 10 mmol/L Normal 10-20 [facility] Comment on above: Performed By: #### 2 4323-8 #### BEVERLEY Poe ([id number]) [facility] ([facility] [place]) [address] [place] [address] AST With P-5'-P [Catalytic activity/Vol] 10 U/L Normal 9-39 [facility] Comment on above: Performed By: #### 2 4323-8 #### BEVERLEY Poe ([id number]) [facility] ([facility] [place]) [address] [place] [address] 93472 Bilirubin [Mass/Vol] 0.6 mg/dL Normal 0.0-1.2 [facility] Comment on above: Performed By: #### 2 4323-8 #### BEVERLEY Poe ([id number]) [facility] ([facility] [place]) [address] [place] [address] 04330 Calcium [Mass/Vol] 8.8 mg/dL Normal 8.6-10.6 [facility] Comment on above: Performed By: #### 2 4323-8 #### BEVERLEY Poe ([id number]) [facility] ([facility] [place]) [address] [place] [address] 09886 Chloride [Moles/Vol] 100 mmol/L Normal 98-107 [facility] Comment on above: Performed By: #### 2 4323-8 #### BEVERLEY DODD L ([id number]) [facility] ([facility] [place]) [address] [place] [address] 77440 CO2 [Moles/Vol] 39 mmol/L High 21-32 [facility] Comment on above: Performed By: #### 2 4323-8 #### BEVERLEY DODD L ([id number]) [facility] ([facility]) [address] [place] [address] 66019 Creatinine [Mass/Vol] 0.45 mg/dL Low 0.50-1.05 [facility] Comment on above: Performed By: #### 2 4323-8 #### BEVERLEY DODD L ([id number]) [facility] ([facility] [address] [place] [address] GFR/1.73 sq M.predicted MDRD (S/P/Bld) [Vol rate/Area] mL/min/{1.73_m2} Normal >60 [facility] Comment on above: Result Comment: Calc ulations of estimated GFR are performed using the 2020 CKD-EPI Study Refit equation without the race variable for the IDMS-Traceable creatinine methods. https://jasn.asnjournals.org/content/early//ASN.41256 40341 Performed By: #### 2 4323-8 #### BEVERLEY Poe ([id number]) [facility] ([facility] [place]) [id number] [place] [address] Glucose [Mass/Vol] 88 mg/dL Normal 74-99 [facility] Comment on above: Performed By: #### 2 4323-8 #### BEVERLEY DODD L ([id number]) [facility] [facility] [place] [id number] [place] [address] Potassium [Moles/Vol] 4.2 mmol/L Normal 3.5-5.3 [facility] Comment on above: Performed By: #### 2 4323-8 #### BEVERLEY DODD L ([id number]) [facility] ([facility] [place] [address] [place] [address] Protein [Mass/Vol] 6.1 g/dL Low 6.4-8.2 [facility] Comment on above: Performed By: #### 2 4323-8 #### BEVERLEY DODD L ([id number]) [facility] ([facility] [place] [id number] [place] [address] Sodium [Moles/Vol] 145 mmol/L Normal 136-145 [facility] Comment on above: Performed By: #### 2 4323-8 #### BEVERLEY DODD L ([id number]) [facility] ([facility] [place] [id number] [place] [address] Urea nitrogen [Mass/Vol] 13 mg/dL Normal 6-23 [facility] Comment on above: Performed By: #### 2 4323-8 #### BEVERLEY Poe ([id number]) [facility] ([facility] [place] [id number] [place] [address] Glucose Glucometer (BldC) [M ass/Vol]Ordered By: Calvin Hester on 09-15-2023 Glucose [Mass/Vol] 95 mg/dL 74-106 [facility] Comment on above: MANAGEMENT OF PATIEN T CARE PER NURSING PROTOCOL Ketones Test strip Ql (U)Ord ered By: Calvin Hester on 09-15-2023 Ketones Ql (U) Negative Negative [facility] Laboratory - Microbiology an d Antimicrobial susceptibilityOrdered By: Calvin Hester on 09-15-2023 Bacteria identified Cx Nom (Bld) No growth in 5 days. [facility] Magnesiumon 09-15-2023 Magnesium [Mass/Vol] 2.13 mg/dL 1.60 - 2.40 mg/dL [facility] Magnesium [Mass/Vol] 2.13 mg/dL Normal 1.60-2.40 [facility] [place] Comment on above: Performed By: #### 1 9123-9 #### BEVERLEY Poe ([id number]) [facility] ([facility] [place] [address] [place] [address] Magnesium [Mass/Vol]on 09-15 Interpretation and review of laboratory results Normal [facility] Mucus LM Ql (Urine sed)Order ed By: Calvin Hester on 09-15-2023 Mucus Ql (Urine sed) 0 SEEN /hpf [facility] Nitrite Test strip Ql (U)Ord ered By: Calvin Hester on 09-15-2023 Nitrite Ql (U) Positive Negative [facility] No Panel Informationon 09-15 [facility] PT and aPTT panel Coag (PPP) on 09-15-2023 aPTT Coag (PPP) [Time] 24 s Low Un [facility] INR Coag (PPP) [Relative time] 1.0 {INR} 0.9 - 1.1 [facility] Interpretation and review of laboratory results Abnormal [facility] PT Coag (PPP) [Time] 11.6 s [facility] aPTT Coag (PPP) [Time] 24 s Low 27-38 Un [facility] Comment on above: Order Comment: The A PTT is no longer used for monitoring Unfractionated Heparin Therapy. For monitoring Heparin Therapy, use the Heparin Assay. Performed By: #### 3 4529-8 #### BEVERLEY Poe ([id number]) [facility] ([facility] [place] [address] [place] [address] INR Coag (PPP) [Relative time] 1.0 Normal 0.9-1.1 [facility] Comment on above: Order Comment: The A PTT is no longer used for monitoring Unfractionated Heparin Therapy. For monitoring Heparin Therapy, use the Heparin Assay. Performed By: #### 3 4529-8 #### BEVERLEY Poe ([id number]) [facility] ([facility] [place] [address] [place] [address] PT Coag (PPP) [Time] 11.6 s Normal 9.8-12.8 [facility] Comment on above: Order Comment: The A PTT is no longer used for monitoring Unfractionated Heparin Therapy. For monitoring Heparin Therapy, use the Heparin Assay. Performed By: #### 3 4529-8 #### BEVERLEY Poe ([id number]) [facility] ([facility] [place] [address] [place] [address] Protein Test strip Ql (U)Ord ered By: Calvin Hester on 09-15-2023 Protein Ql (U) 30 mg/dl Negative [facility] Squamous epithelial cells de tection in urine sediment by light microscopyOrdered By: Calvin Hester on 09-15-2023 Epithelial cells.squamous LM Ql (Urine sed) 0 SEEN /hpf 5-10 [facility] Urine blood detectionOrdered By: Calvin Hester on 09-15-2023 RBC Ql (U) 50 /ul Negative [facility] RBC Ql (U) 0-5 SEEN /hpf 0-5 [facility] Urine clarityOrdered By: Farooq Hester on 09-15-2023 Clarity (U) Clear Clear [facility] Urine color determinationOrd ered By: Calvin Hester on 09-15-2023 Color (U) Yellow Yellow [facility] Urine glucose detectionOrder ed By: Calvin Hester on 09-15-2023 Glucose Ql (U) Normal mg/dl Normal [facility] Urine leukocyte esterase det ection by dipstickOrdered By: Calvin Hester on 09-15-2023 Leukocyte esterase Test strip Ql (U) 100 /ul Negative [facility] Urine pHOrdered By: Calvin solorzano on 09-15-2023 pH (U) 6.0 [pH] 5.0 - 8.0 [facility] Urine sediment bacteria coun t by microscopy (number/high power field)Ordered By: Calvin Hester on 09-15-2023 Bacteria LM.HPF (Urine sed) [#/Area] 1 /[HPF] None Seen [facility] Urine specific gravity measu rementOrdered By: Calvin Hester on 09-15-2023 Specific gravity (U) [Rel density] 1.010 1.002-1.030 [facility] Urobilinogen Auto test strip Ql (U)Ordered By: Calvin Hester on 09-15-2023 Urobilinogen Ql (U) 1 mg/dl Normal [facility] Absolute lymphocyte countOrd ered By: Calvin Hester on 09-14-2023 Lymphocytes Auto (Unsp spec) [#/Vol] 0.70 10*3/uL 0.83-4.51 [facility] Basophil percentageOrdered B y: Calvin Hester on 09-14-2023 Basophils/100 WBC (Bld) 0.3 % 0-1 [facility] Bilirubin [Mass/Vol] 0.40 mg/dL 0.20-1.00 [facility] Comment on above: For patients on eltr ombopag therapy, use of Dimension [place] TBIL is not recommended. Chloride [Moles/Vol] 101 mmol/L 98-107 [facility] Eosinophils/100 WBC (Bld) 0.8 % 0-5 [facility] Glucose [Mass/Vol] 134 mg/dL 74-106 [facility] Comment on above: Fasting Glucose resu lt greater than or equal to 126 mg/dL suggests DIABETES MELLITUS per A.D.A. criteria. Neutrophils (Bld) [#/Vol] 2.5 10*3/uL 2.0-7.7 [facility] Neutrophils/100 WBC (Bld) 70.5 % 47-70 [facility] Potassium [Moles/Vol] 4.0 mmol/L 3.5-5.1 [facility] Protein [Mass/Vol] 6.9 g/dL 6.4-8.2 [facility] Sodium [Moles/Vol] 144 mmol/L 136-145 [facility] WBC (Bld) [#/Vol] 3.6 10*3/uL 4.4-11.0 [facility] Blood erythrocytes count (nu mber/volume)Ordered By: Calvin Hester on 09-14-2023 RBC (Bld) [#/Vol] 2.80 10*6/uL 4.2-5.4 [facility] Blood hemoglobin measurement (mass/volume)Ordered By: Calvin Hester on 09-14-2023 Hemoglobin (Bld) [Mass/Vol] 8.3 g/dL 12.0-15.0 [facility] Blood lymphocytes/100 leukoc ytesOrdered By: Calvin Hester on 09-14-2023 Lymphocytes/100 WBC (Bld) 19.5 % 19-41 [facility] Blood monocytes/100 leukocyt esOrdered By: Calvin Hester on 09-14-2023 Monocytes/100 WBC (Bld) 7.8 % 0-10 [facility] Blood platelet mean volumeOr dered By: Calvin Hester on 09-14-2023 Platelet mean volume (Bld) [Entitic vol] 8.8 fL 6.2-12.0 [facility] Determination of erythrocyte mean corpuscular volume (MCV)Ordered By: Calvin Hester on 09-14-2023 MCV (RBC) [Entitic vol] 102.9 fL 81-99 [facility] Direct bilirubinOrdered By: Calvin Hester on 09-14-2023 Bilirubin.direct [Mass/Vol] 0.09 mg/dL 0.00-0.30 [facility] Hematocrit Auto (Bld) [Volum e fraction]Ordered By: Calvin Hester on 09-14-2023 Hematocrit (Bld) [Volume fraction] 28.8 % 37-47 [facility] INR in Blood by Coagulation assayOrdered By: Calvin Hester on 09-14-2023 INR Coag (Bld) [Relative time] 1.0 {INR} [facility] Laboratory - Chemistry and C hemistry - challengeOrdered By: Calvin Hester on 09-14-2023 ALP [Catalytic activity/Vol] 66 U/L 45-117 [facility] ALT [Catalytic activity/Vol] 18 U/L 13-56 [facility] CO2 [Moles/Vol] 41.0 mmol/L 21.0-32.0 [facility] Globulin (S) [Mass/Vol] 4.4 g/dL 2.2-4.2 [facility] Lipase [Catalytic activity/Vol] 24 U/L 13-75 [facility] Comment on above: Please note:LIPASE r evised reference range effective 23. New Lipase methodology. Expected to produce lower values than the previous assay method. NEW Reference Range: 13 - 75 U/L Urea nitrogen/Creatinine [Mass ratio] 25.5 mg/mg 10-20 [facility] Laboratory - CoagulationOrde red By: Calvin Hester on 09-14-2023 aPTT Coag (Bld) [Time] 29.8 s 24.1-36.2 [facility] PT Coag (PPP) [Time] 13.0 s 11.7-14.9 [facility] Laboratory - Hematology and Cell countsOrdered By: Calvin Hester on 09-14-2023 Erythrocyte distribution width (RBC) [Entitic vol] 53.0 fL 35.1-43.9 [facility] Erythrocyte distribution width (RBC) [Ratio] 14.1 % 11.6-14.6 [facility] Immature granulocytes/100 WBC (Bld) 1.100 % 0.0-0.9 [facility] Comment on above: IG% - Immature Granu locytes (promyelocytes, myelocytes and metamyelocytes) > 1% indicates that a LEFT SHIFT is Present. MCH (RBC) [Entitic mass] 29.6 pg 27.0-32.0 [facility] Nucleated RBC/100 WBC (Bld) [Ratio] 0 % [facility] [Mass/Vol]Or dered By: Calvin Hester on 09-14-2023 MCHC (RBC) [Mass/Vol] 28.8 g/dL 32-36 [facility] No Panel InformationOrdered By: Calvin Hester on 09-14-2023 Estimated Creatinine Clearance Calc 54.98 ml/min [facility] Estimated GFR (MDRD) Amer 87 mL/min >60 [facility] Comment on above: GFR Calc Estimated GFR (MDRD) Non-Af Amer 72 mL/min >60 [facility] Comment on above: Non- GFR Calc Platelets bldOrdered By: Farooq Hester on 09-14-2023 Platelets (Bld) [#/Vol] 109 10*3/uL 150-450 [facility] Serum or plasma albumin celina urement (mass/volume)Ordered By: Calvin Hester on 09-14-2023 Albumin [Mass/Vol] 2.5 g/dL 3.2-5.0 [facility] Serum or plasma calcium celina urement (mass/volume)Ordered By: Calvin Hester on 09-14-2023 Calcium [Mass/Vol] 9.0 mg/dL 8.5-10.1 [facility] Serum or plasma creatinine m easurement (mass/volume)Ordered By: Calvin Hester on 09-14-2023 Creatinine [Mass/Vol] 0.82 mg/dL 0.55-1.02 [facility] Comment on above: The validity of the calculated GFR & GFRAA in patients over 70 years has not been determined. Clinical correlation is essential. Serum or plasma urea nitroge n measurement (mass/volume)Ordered By: Calvin Hester on 09-14-2023 Urea nitrogen [Mass/Vol] 21 mg/dL 7-18 [facility] Thin prep Papanicolaou smear with manual screeningOrdered By: Calvin Hester on 09-14-2023 Thin prep Papanicolaou smear with manual screening 10 U/L 15-37 [facility] Thin prep Papanicolaou smear with manual screening 2 5-15 [facility] Basophil percentageOrdered B y: Jonathan Dillard on 09-13-2023 Bilirubin [Mass/Vol] 0.30 mg/dL 0.20-1.00 [facility] Comment on above: For patients on eltr ombopag therapy, use of Dimension [place] TBIL is not recommended. Chloride [Moles/Vol] 103 mmol/L 98-107 [facility] Glucose [Mass/Vol] 111 mg/dL 74-106 [facility] Comment on above: Fasting Glucose resu lt from 100 to 125 mg/dL suggests IMPAIRED HOMEOSTASIS per A.D.A. criteria. Potassium [Moles/Vol] 3.8 mmol/L 3.5-5.1 [facility] Protein [Mass/Vol] 6.6 g/dL 6.4-8.2 [facility] Sodium [Moles/Vol] 145 mmol/L 136-145 [facility] WBC (Bld) [#/Vol] 2.8 10*3/uL 4.4-11.0 [facility] Blood erythrocytes count (nu mber/volume)Ordered By: Jonathan Dillard on 09-13-2023 RBC (Bld) [#/Vol] 2.62 10*6/uL 4.2-5.4 [facility] Blood hemoglobin measurement (mass/volume)Ordered By: Jonathan Dillard on 09-13-2023 Hemoglobin (Bld) [Mass/Vol] 8.0 g/dL 12.0-15.0 [facility] Blood platelet mean volumeOr dered By: Jonathan Dillard on 09-13-2023 Platelet mean volume (Bld) [Entitic vol] 8.6 fL 6.2-12.0 [facility] Determination of erythrocyte mean corpuscular volume (MCV)Ordered By: Jonathan Dillard on 09-13-2023 MCV (RBC) [Entitic vol] 103.4 fL 81-99 [facility] Hematocrit Auto (Bld) [Volum e fraction]Ordered By: Jonathan Dillard on 09-13-2023 Hematocrit (Bld) [Volume fraction] 27.1 % 37-47 [facility] Laboratory - Chemistry and C hemistry - challengeOrdered By: Jonathan Dillard on 09-13-2023 ALP [Catalytic activity/Vol] 58 U/L 45-117 [facility] ALT [Catalytic activity/Vol] 18 U/L 13-56 [facility] CO2 [Moles/Vol] 41.0 mmol/L 21.0-32.0 [facility] Globulin (S) [Mass/Vol] 4.2 g/dL 2.2-4.2 [facility] Urea nitrogen/Creatinine [Mass ratio] 34.5 mg/mg 10-20 [facility] Laboratory - Hematology and Cell countsOrdered By: Jonathan Dillard on 09-13-2023 Erythrocyte distribution width (RBC) [Entitic vol] 54.3 fL 35.1-43.9 [facility] Erythrocyte distribution width (RBC) [Ratio] 14.4 % 11.6-14.6 [facility] MCH (RBC) [Entitic mass] 30.5 pg 27.0-32.0 [facility] MCHC Auto (RBC) [Mass/Vol]Or dered By: Jonathan Dillard on 09-13-2023 MCHC (RBC) [Mass/Vol] 29.5 g/dL 32-36 [facility] Comment on above: Delta: 27.9 on 09/08 No Panel InformationOrdered By: Jonathan Dillard on 09-13-2023 Estimated GFR (MDRD) Amer 148 mL/min >60 [facility] Comment on above: GFR Calc Estimated GFR (MDRD) Non-Af Amer 122 mL/min >60 [facility] Comment on above: Non- GFR Calc Platelets bldOrdered By: Mervat Dillard on 09-13-2023 Platelets (Bld) [#/Vol] 103 10*3/uL 150-450 [facility] Serum or plasma albumin celina urement (mass/volume)Ordered By: Jonathan Dillard on 09-13-2023 Albumin [Mass/Vol] 2.4 g/dL 3.2-5.0 [facility] Serum or plasma albumin/glob ulin mass ratioOrdered By: Jonathan Dillard on 09-13-2023 Albumin/Globulin [Mass ratio] 0.6 {ratio} 0.9-2.4 [facility] Serum or plasma calcium celina urement (mass/volume)Ordered By: Jonathan Dillard on 09-13-2023 Calcium [Mass/Vol] 8.7 mg/dL 8.5-10.1 [facility] Serum or plasma creatinine m easurement (mass/volume)Ordered By: Jonathan Dillard on 09-13-2023 Creatinine [Mass/Vol] 0.52 mg/dL 0.55-1.02 [facility] Comment on above: The validity of the calculated GFR & GFRAA in patients over 70 years has not been determined. Clinical correlation is essential. Serum or plasma urea nitroge n measurement (mass/volume)Ordered By: Jonathan Dillard on 09-13-2023 Urea nitrogen [Mass/Vol] 18 mg/dL 7-18 [facility] Thin prep Papanicolaou smear with manual screeningOrdered By: Jonathan Dillard on 09-13-2023 Thin prep Papanicolaou smear with manual screening 11 U/L 15-37 [facility] Thin prep Papanicolaou smear with manual screening 1 5-15 [facility] Culture, urineOrdered By: Chloe Jeffries on 09-09-2023 Bacteria identified Cx Nom (U) Mixed Gram Pos & Gram Neg Org [facility] Cytology report of Body flui d Cyto stainOrdered By: Alecia Navarrete on 09-09-2023 Cytology report Cyto stain Doc (Body fld) SEE PATHOLOGY REPORT [facility] Comment on above: Specimen submitted t o Anatomical Pathology Department for testing. Absolute lymphocyte countOrd ered By: Delfin Jeffries on 09-08-2023 Lymphocytes Auto (Unsp spec) [#/Vol] 0.60 10*3/uL 0.83-4.51 [facility] Basophil percentageOrdered B y: Delfin Jeffries on 09-08-2023 Basophil percentage >100 SEEN /hpf 0-5 [facility] Comment on above: Microscopic field is filled. Other elements may be obscured. Basophil percentage 3.4 mg/dL 2.5-4.9 [facility] Basophils/100 WBC (Bld) 0.2 % 0-1 [facility] Bilirubin [Mass/Vol] 0.40 mg/dL 0.20-1.00 [facility] Comment on above: For patients on eltr ombopag therapy, use of Dimension [place] TBIL is not recommended. Chloride [Moles/Vol] 104 mmol/L 98-107 [facility] Eosinophils/100 WBC (Bld) 0.7 % 0-5 [facility] Glucose [Mass/Vol] 163 mg/dL 74-106 [facility] Comment on above: Fasting Glucose resu lt greater than or equal to 126 mg/dL suggests DIABETES MELLITUS per A.D.A. criteria. Neutrophils (Bld) [#/Vol] 3.5 10*3/uL 2.0-7.7 [facility] Neutrophils/100 WBC (Bld) 78.8 % 47-70 [facility] Potassium [Moles/Vol] 3.8 mmol/L 3.5-5.1 [facility] Protein [Mass/Vol] 7.1 g/dL 6.4-8.2 [facility] Sodium [Moles/Vol] 143 mmol/L 136-145 [facility] WBC (Bld) [#/Vol] 4.5 10*3/uL 4.4-11.0 [facility] Bilirubin Test strip Ql (U)O rdered By: Delfin Jeffries on 09-08-2023 Bilirubin Ql (U) Negative Negative [facility] Blood erythrocytes count (nu mber/volume)Ordered By: Delfin Jeffries on 09-08-2023 RBC (Bld) [#/Vol] 3.10 10*6/uL 4.2-5.4 [facility] Blood hemoglobin measurement (mass/volume)Ordered By: Delfin Jeffries on 09-08-2023 Hemoglobin (Bld) [Mass/Vol] 9.0 g/dL 12.0-15.0 [facility] Blood lymphocytes/100 leukoc ytesOrdered By: Delfin Jeffries on 09-08-2023 Lymphocytes/100 WBC (Bld) 13.4 % 19-41 [facility] Blood manual differential co mment interpretation (narrative result)Ordered By: Delfin Jeffries on 09-08-2023 Manual differential comment Ajit (Bld) [Interp] SCANNED [facility] Blood monocytes/100 leukocyt esOrdered By: Delfin Jeffries on 09-08-2023 Monocytes/100 WBC (Bld) 6.5 % 0-10 [facility] Blood platelet mean volumeOr dered By: Delfin Jeffries on 09-08-2023 Platelet mean volume (Bld) [Entitic vol] 8.1 fL 6.2-12.0 [facility] Culture, urineOrdered By: Chloe Jeffries on 09-08-2023 Bacteria identified Cx Nom (U) Mixed Gram Pos & Gram Neg Org [facility] Determination of erythrocyte mean corpuscular volume (MCV)Ordered By: Delfin Jeffries on 09-08-2023 MCV (RBC) [Entitic vol] 104.2 fL 81-99 [facility] Erythrocyte sedimentation ra teOrdered By: Delfin Jeffries on 09-08-2023 ESR (Bld) [Velocity] 43 mm/h 0-30 [facility] Hematocrit Auto (Bld) [Volum e fraction]Ordered By: Delfin Jeffries on 09-08-2023 Hematocrit (Bld) [Volume fraction] 32.3 % 37-47 [facility] Hemoglobin in reticulocytes (mass per reticulocyte)Ordered By: Delfin Jeffries on 09-08-2023 Hemoglobin (Reticulocytes) [Entitic mass] 26.4 pg 30-35 [facility] Iron measurement (mass/mass) Ordered By: Delfin Jeffries on 09-08-2023 Iron (Unsp spec) [Mass/Mass] 32 ug/dL 50-170 [facility] Ketones Test strip Ql (U)Ord ered By: Delfin Jeffries on 09-08-2023 Ketones Ql (U) 5 mg/dl Negative [facility] Laboratory - Chemistry and C hemistry - challengeOrdered By: Delfin Jeffries on 09-08-2023 ALP [Catalytic activity/Vol] 69 U/L 45-117 [facility] ALT [Catalytic activity/Vol] 17 U/L 13-56 [facility] CO2 [Moles/Vol] 38.0 mmol/L 21.0-32.0 [facility] Cobalamin (Vitamin B12) [Mass/Vol] 1331 pg/mL 211-911 [facility] Globulin (S) [Mass/Vol] 4.5 g/dL 2.2-4.2 [facility] Magnesium [Mass/Vol] 2.1 mg/dL 1.6-2.6 [facility] Urea nitrogen/Creatinine [Mass ratio] 31.6 mg/mg 10-20 [facility] Laboratory - Hematology and Cell countsOrdered By: Delfin Jeffries on 09-08-2023 Erythrocyte distribution width (RBC) [Entitic vol] 55.1 fL 35.1-43.9 [facility] Erythrocyte distribution width (RBC) [Ratio] 14.6 % 11.6-14.6 [facility] Immature granulocytes/100 WBC (Bld) 0.400 % 0.0-0.9 [facility] Comment on above: IG% - Immature Granu locytes (promyelocytes, myelocytes and metamyelocytes) > 1% indicates that a LEFT SHIFT is Present. MCH (RBC) [Entitic mass] 29.0 pg 27.0-32.0 [facility] Nucleated RBC/100 WBC (Bld) [Ratio] 0 % 0-5 [facility] MCHC Auto (RBC) [Mass/Vol]Or dered By: Delfin Jeffries on 09-08-2023 MCHC (RBC) [Mass/Vol] 27.9 g/dL 32-36 [facility] Mucus LM Ql (Urine sed)Order ed By: Delfin Jeffries on 09-08-2023 Mucus Ql (Urine sed) 0 SEEN /hpf [facility] Nitrite Test strip Ql (U)Ord ered By: Delfin Jeffries on 09-08-2023 Nitrite Ql (U) Negative Negative [facility] No Panel InformationOrdered By: Delfin Jeffries on 09-08-2023 Estimated Creatinine Clearance Calc 43.27 ml/min [facility] Estimated GFR (MDRD) Amer 118 mL/min >60 [facility] Comment on above: GFR Calc Estimated GFR (MDRD) Non-Af Amer 98 mL/min >60 [facility] Comment on above: Non- GFR Calc Immature Reticulocyte Fraction 17.60 % 3.00-15.90 [facility] Reticulocyte Count 2.46 % 0.5-1.5 [facility] Total Iron Binding Capacity 216 ug/dL 250-450 [facility] Platelets bldOrdered By: Luciano Jeffries on 09-08-2023 Platelets (Bld) [#/Vol] 113 10*3/uL 150-450 [facility] Protein Test strip Ql (U)Ord ered By: Delfin Jeffries on 09-08-2023 Protein Ql (U) 500 mg/dl Negative [facility] Serum or plasma C reactive p rotein measurement (mass/volume)Ordered By: Delfin Benson on 09-08-2023 CRP [Mass/Vol] 81.40 mg/L 0.0-3.0 [facility] Comment on above: C-Reactive Protein ( CRP) provides useful information for thediagnosis, therapy and monitoring of inflammatory processesand associated diseases. For the evaluation of Relative Riskfor Cardiovascular Disease, a High Sensitivity CRP (HSCRP)should be ordered. Serum or plasma albumin celina urement (mass/volume)Ordered By: Delfin Jeffries on 09-08-2023 Albumin [Mass/Vol] 2.6 g/dL 3.2-5.0 [facility] Serum or plasma albumin/glob ulin mass ratioOrdered By: Delfin Jeffries on 09-08-2023 Albumin/Globulin [Mass ratio] 0.6 {ratio} 0.9-2.4 [facility] Serum or plasma calcium celina urement (mass/volume)Ordered By: Delfin Benson on 09-08-2023 Calcium [Mass/Vol] 8.7 mg/dL 8.5-10.1 [facility] Serum or plasma creatinine m easurement (mass/volume)Ordered By: Delfin Benson on 09-08-2023 Creatinine [Mass/Vol] 0.63 mg/dL 0.55-1.02 [facility] Comment on above: The validity of the calculated GFR & GFRAA in patients over 70 years has not been determined. Clinical correlation is essential. Serum or plasma ferritin carter surement (mass/volume)Ordered By: Delfin Jeffries on 09-08-2023 Ferritin [Mass/Vol] 243 ng/mL 8-252 [facility] Serum or plasma folate measu rement (mass/volume)Ordered By: Delfin Jeffries on 09-08-2023 Folate [Mass/Vol] 84.50 ng/mL 3.1-55.4 [facility] Serum or plasma iron saturat ion measurement (mass fraction)Ordered By: Delfin Jeffries on 09-08-2023 Iron saturation [Mass fraction] 14.8 % 15.0-55.0 [facility] Serum or plasma urea nitroge n measurement (mass/volume)Ordered By: Delfin Jeffries on 09-08-2023 Urea nitrogen [Mass/Vol] 20 mg/dL 7-18 [facility] Squamous epithelial cells de tection in urine sediment by light microscopyOrdered By: Delfin Jeffries on 09-08-2023 Epithelial cells.squamous LM Ql (Urine sed) 0 SEEN /hpf 5-10 [facility] Thin prep Papanicolaou smear with manual screeningOrdered By: Delfin Jeffries on 09-08-2023 Thin prep Papanicolaou smear with manual screening 15 U/L 15-37 [facility] Thin prep Papanicolaou smear with manual screening 1 5-15 [facility] Urine blood detectionOrdered By: Delfin Jeffries on 09-08-2023 RBC Ql (U) 250 /ul Negative [facility] RBC Ql (U) > 100 SEEN /hpf 0-5 [facility] Comment on above: Microscopic field is filled. Other elements may be obscured. Urine clarityOrdered By: Luciano Jeffries on 09-08-2023 Clarity (U) Cloudy Clear [facility] Urine color determinationOrd ered By: Delfin Jeffries on 09-08-2023 Color (U) Brown Yellow [facility] Urine glucose detectionOrder ed By: Delfin Jeffries on 09-08-2023 Glucose Ql (U) Normal mg/dl Normal [facility] Urine leukocyte esterase det ection by dipstickOrdered By: Delfin Jeffries on 09-08-2023 Leukocyte esterase Test strip Ql (U) 100 /ul Negative [facility] Urine pHOrdered By: Delfin elizabeth on 09-08-2023 pH (U) 5.0 [pH] 5.0 - 8.0 [facility] Urine sediment bacteria coun t by microscopy (number/high power field)Ordered By: Delfin Jeffries on 09-08-2023 Bacteria LM.HPF (Urine sed) [#/Area] 0 /[HPF] None Seen [facility] Urine specific gravity measu rementOrdered By: Delfin Jeffries on 09-08-2023 Specific gravity (U) [Rel density] 1.020 1.002-1.030 [facility] Urobilinogen Auto test strip Ql (U)Ordered By: Delfin Jeffries on 09-08-2023 Urobilinogen Ql (U) Normal mg/dl Normal [facility] Basophil percentageOrdered B y: Jonathan Dillard on 08-31-2023 Basophil percentage >100 SEEN /hpf 0-5 [facility] Chloride [Moles/Vol] 104 mmol/L 98-107 [facility] Glucose [Mass/Vol] 110 mg/dL 74-106 [facility] Comment on above: Fasting Glucose resu lt from 100 to 125 mg/dL suggests IMPAIRED HOMEOSTASIS per A.D.A. criteria. Potassium [Moles/Vol] 3.9 mmol/L 3.5-5.1 [facility] Sodium [Moles/Vol] 146 mmol/L 136-145 [facility] WBC (Bld) [#/Vol] 3.7 10*3/uL 4.4-11.0 [facility] Bilirubin Test strip Ql (U)O rdered By: Jonathan Dillard on 08-31-2023 Bilirubin Ql (U) Negative Negative [facility] Blood erythrocytes count (nu mber/volume)Ordered By: Jonathan Dillard on 08-31-2023 RBC (Bld) [#/Vol] 2.85 10*6/uL 4.2-5.4 [facility] Blood hemoglobin measurement (mass/volume)Ordered By: Jonathan Dillard on 08-31-2023 Hemoglobin (Bld) [Mass/Vol] 8.5 g/dL 12.0-15.0 [facility] Blood manual differential co mment interpretation (narrative result)Ordered By: Jonathan Dillard on 08-31-2023 Manual differential comment Ajit (Bld) [Interp] COMMENT [facility] Comment on above: PLT POPULATION - MOD ERATELY DECREASED. Blood platelet mean volumeOr dered By: Jonathan Dillard on 08-31-2023 Platelet mean volume (Bld) [Entitic vol] 9.6 fL 6.2-12.0 [facility] Culture, urineOrdered By: Higuera on 08-31-2023 Bacteria identified Cx Nom (U) Mixed Gram Pos & Gram Neg Org [facility] Determination of erythrocyte mean corpuscular volume (MCV)Ordered By: Jonathan Dillard on 08-31-2023 MCV (RBC) [Entitic vol] 102.8 fL 81-99 [facility] Hematocrit Auto (Bld) [Volum e fraction]Ordered By: Jonathan Dillard on 08-31-2023 Hematocrit (Bld) [Volume fraction] 29.3 % 37-47 [facility] Ketones Test strip Ql (U)Ord ered By: Jonathan Dillard on 08-31-2023 Ketones Ql (U) Negative Negative [facility] Laboratory - Chemistry and C hemistry - challengeOrdered By: Jonathan Dillard on 08-31-2023 CO2 [Moles/Vol] 39.0 mmol/L 21.0-32.0 [facility] Urea nitrogen/Creatinine [Mass ratio] 37.5 mg/mg 10-20 [facility] Laboratory - Hematology and Cell countsOrdered By: Jonathan Dillard on 08-31-2023 Erythrocyte distribution width (RBC) [Entitic vol] 54.3 fL 35.1-43.9 [facility] Erythrocyte distribution width (RBC) [Ratio] 14.4 % 11.6-14.6 [facility] MCH (RBC) [Entitic mass] 29.8 pg 27.0-32.0 [facility] MCHC Auto (RBC) [Mass/Vol]Or dered By: Jonathan Dillard on 08-31-2023 MCHC (RBC) [Mass/Vol] 29.0 g/dL 32-36 [facility] Mucus LM Ql (Urine sed)Order ed By: Jonathan Dillard on 08-31-2023 Mucus Ql (Urine sed) 0 SEEN /hpf [facility] Nitrite Test strip Ql (U)Ord ered By: Jonathan Dillard on 08-31-2023 Nitrite Ql (U) Negative Negative [facility] No Panel InformationOrdered By: Jonathan Dillard on 08-31-2023 Estimated GFR (MDRD) Amer 153 mL/min >60 [facility] Comment on above: GFR Calc Estimated GFR (MDRD) Non-Af Amer 127 mL/min >60 [facility] Comment on above: Non- GFR Calc Platelets bldOrdered By: Mervat Dillard on 08-31-2023 Platelets (Bld) [#/Vol] 96 10*3/uL 150-450 [facility] Protein Test strip Ql (U)Ord ered By: Jonathan Dillard on 08-31-2023 Protein Ql (U) 100 mg/dl Negative [facility] Serum or plasma calcium celina urement (mass/volume)Ordered By: Jonathan Dillard on 08-31-2023 Calcium [Mass/Vol] 9.5 mg/dL 8.5-10.1 [facility] Serum or plasma creatinine m easurement (mass/volume)Ordered By: Jonathan Dillard on 08-31-2023 Creatinine [Mass/Vol] 0.51 mg/dL 0.55-1.02 [facility] Comment on above: The validity of the calculated GFR & GFRAA in patients over 70 years has not been determined. Clinical correlation is essential. Serum or plasma urea nitroge n measurement (mass/volume)Ordered By: Jonathan Dillard on 08-31-2023 Urea nitrogen [Mass/Vol] 19 mg/dL - [facility] Squamous epithelial cells de tection in urine sediment by light microscopyOrdered By: Jonathan Dillard on 08-31-2023 Epithelial cells.squamous LM Ql (Urine sed) 0 SEEN /hpf 5-10 [facility] Thin prep Papanicolaou smear with manual screeningOrdered By: Jonathan Dillard on 08-31-2023 Thin prep Papanicolaou smear with manual screening 3 5-15 [facility] Urine blood detectionOrdered By: Jonathan Dillard on 08-31-2023 RBC Ql (U) 250 /ul Negative [facility] RBC Ql (U) > 100 SEEN /hpf 0-5 [facility] Urine clarityOrdered By: Mervat Dillard on 08-31-2023 Clarity (U) Cloudy Clear [facility] Urine color determinationOrd ered By: Jonathan Dillard on 08-31-2023 Color (U) Yellow Yellow [facility] Urine glucose detectionOrder ed By: Jonathan Dillard on 08-31-2023 Glucose Ql (U) Normal mg/dl Normal [facility] Urine leukocyte esterase det ection by dipstickOrdered By: Jonathan Dillard on 08-31-2023 Leukocyte esterase Test strip Ql (U) 500 /ul Negative [facility] Urine pHOrdered By: Jonathan ramirez on 08-31-2023 pH (U) 6.0 [pH] 5.0 - 8.0 [facility] Urine sediment bacteria coun t by microscopy (number/high power field)Ordered By: Jonathan Dillard on 08-31-2023 Bacteria LM.HPF (Urine sed) [#/Area] 2 /[HPF] None Seen [facility] Urine specific gravity measu rementOrdered By: Jonathan Dillard on 08-31-2023 Specific gravity (U) [Rel density] 1.015 1.002-1.030 [facility] Urobilinogen Auto test strip Ql (U)Ordered By: Jonathan Dillard on 08-31-2023 Urobilinogen Ql (U) Normal mg/dl Normal [facility] Culture, urineOrdered By: Higuera on 08-17-2023 Bacteria identified Cx Nom (U) Mixed Gram Pos & Gram Neg Org [facility] XR BARIUM ENEMA COMPLETEon 1 XR BARIUM [...] 08/17/2023 3:50:07 PM Ordering Provider: [facility] Basophil percentageOrdered B y: Jonathan Dillard on 08-16-2023 Basophil percentage 0-5 SEEN /hpf 0-5 [facility] Bilirubin Test strip Ql (U)O rdered By: Jonathan Dillard on 08-16-2023 Bilirubin Ql (U) Negative Negative [facility] Culture, urineOrdered By: Higuera on 08-16-2023 Bacteria identified Cx Nom (U) Mixed Gram Pos & Gram Neg Org [facility] Hyaline casts LM.LPF (Urine sed) [#/Area]Ordered By: Jonathan Dillard on 08-16-2023 Hyaline casts (Urine sed) [#/Area] 5 /[LPF] 0-5 [facility] Ketones Test strip Ql (U)Ord ered By: Jonathan Dillard on 08-16-2023 Ketones Ql (U) 5 mg/dl Negative [facility] Mucus LM Ql (Urine sed)Order ed By: Jonathan Dillard on 08-16-2023 Mucus Ql (Urine sed) 0 SEEN /hpf [facility] Nitrite Test strip Ql (U)Ord ered By: Jonathan Dillard on 08-16-2023 Nitrite Ql (U) Negative Negative [facility] Protein Test strip Ql (U)Ord ered By: Jonathan Dillard on 08-16-2023 Protein Ql (U) 100 mg/dl Negative [facility] Squamous epithelial cells de tection in urine sediment by light microscopyOrdered By: Jonathan Dillard on 08-16-2023 Epithelial cells.squamous LM Ql (Urine sed) 5-10 SEEN /hpf 5-10 [facility] Urine blood detectionOrdered By: Jonathan Dillard on 08-16-2023 RBC Ql (U) 150 /ul Negative [facility] RBC Ql (U) 5-10 SEEN /hpf 0-5 [facility] Urine clarityOrdered By: Mervat Dillard on 08-16-2023 Clarity (U) Sl. Cloudy Clear [facility] Urine color determinationOrd ered By: Jonathan Dillard on 08-16-2023 Color (U) Yellow Yellow [facility] Urine glucose detectionOrder ed By: Jonathan Dillard on 08-16-2023 Glucose Ql (U) Normal mg/dl Normal [facility] Urine leukocyte esterase det ection by dipstickOrdered By: Jonathan Dillard on 08-16-2023 Leukocyte esterase Test strip Ql (U) 25 /ul Negative [facility] Urine pHOrdered By: Jonathan ramirez on 08-16-2023 pH (U) 5.0 [pH] 5.0 - 8.0 [facility] Urine sediment bacteria coun t by microscopy (number/high power field)Ordered By: Jonathan Dillard on 08-16-2023 Bacteria LM.HPF (Urine sed) [#/Area] 1 /[HPF] None Seen [facility] Urine specific gravity measu rementOrdered By: Jonathan Dillard on 08-16-2023 Specific gravity (U) [Rel density] 1.025 1.002-1.030 [facility] Urobilinogen Auto test strip Ql (U)Ordered By: Jonathan Dillard on 08-16-2023 Urobilinogen Ql (U) Normal mg/dl Normal [facility] LABORATORYOrdered By: Amy Gomez on 08-15-2023 Glucose [Mass/Vol] 147 mg/dL Invalid Interpretation Code 82 - 115 mg/dL [facility] Work Phone: XR ABDOMEN APon 08-15-2023 [...] 08/15/2023 12:08:09 PM Ordering Provider: [facility] Absolute lymphocyte countOrd ered By: Calvin Hester on 08-10-2023 Lymphocytes Auto (Unsp spec) [#/Vol] 0.52 10*3/uL 0.83-4.51 [facility] Basophil percentageOrdered B y: Calvin Hester on 08-10-2023 Basophils/100 WBC (Bld) 0.1 % 0-1 [facility] Chloride [Moles/Vol] 103 mmol/L 98-107 [facility] Eosinophils/100 WBC (Bld) 0.4 % 0-5 [facility] Glucose [Mass/Vol] 149 mg/dL 74-106 [facility] Comment on above: Fasting Glucose resu lt greater than or equal to 126 mg/dL suggests DIABETES MELLITUS per A.D.A. criteria. Neutrophils (Bld) [#/Vol] 5.8 10*3/uL 2.0-7.7 [facility] Neutrophils/100 WBC (Bld) 85.8 % 47-70 [facility] Potassium [Moles/Vol] 4.1 mmol/L 3.5-5.1 [facility] Sodium [Moles/Vol] 144 mmol/L 136-145 [facility] WBC (Bld) [#/Vol] 6.8 10*3/uL 4.4-11.0 [facility] Blood erythrocytes count (nu mber/volume)Ordered By: Calvin Hester on 08-10-2023 RBC (Bld) [#/Vol] 3.38 10*6/uL 4.2-5.4 [facility] Blood hemoglobin measurement (mass/volume)Ordered By: Calvin Hester on 08-10-2023 Hemoglobin (Bld) [Mass/Vol] 9.9 g/dL 12.0-15.0 [facility] Blood lymphocytes/100 leukoc ytesOrdered By: Calvin Hester on 08-10-2023 Lymphocytes/100 WBC (Bld) 7.6 % 19-41 [facility] Blood manual differential co mment interpretation (narrative result)Ordered By: Calvin Hester on 08-10-2023 Manual differential comment Ajit (Bld) [Interp] SCANNED [facility] Comment on above: LYMPHOPENIA NOTED Blood monocytes/100 leukocyt esOrdered By: Calvin Hester on 08-10-2023 Monocytes/100 WBC (Bld) 5.7 % 0-10 [facility] Blood platelet mean volumeOr dered By: Calvin Hester on 08-10-2023 Platelet mean volume (Bld) [Entitic vol] 9.1 fL 6.2-12.0 [facility] Determination of erythrocyte mean corpuscular volume (MCV)Ordered By: Calvin Hester on 08-10-2023 MCV (RBC) [Entitic vol] 100.0 fL 81-99 [facility] Hematocrit Auto (Bld) [Volum e fraction]Ordered By: Calvin Hester on 08-10-2023 Hematocrit (Bld) [Volume fraction] 33.8 % 37-47 [facility] Laboratory - Chemistry and C hemistry - challengeOrdered By: Calvin Hester on 08-10-2023 CO2 [Moles/Vol] 40.0 mmol/L 21.0-32.0 [facility] Magnesium [Mass/Vol] 2.1 mg/dL 1.6-2.6 [facility] Urea nitrogen/Creatinine [Mass ratio] 29.3 mg/mg 10-20 [facility] Laboratory - Hematology and Cell countsOrdered By: Calvin Hester on 08-10-2023 Erythrocyte distribution width (RBC) [Entitic vol] 51.8 fL 35.1-43.9 [facility] Erythrocyte distribution width (RBC) [Ratio] 14.1 % 11.6-14.6 [facility] Immature granulocytes/100 WBC (Bld) 0.400 % 0.0-0.9 [facility] Comment on above: IG% - Immature Granu locytes (promyelocytes, myelocytes and metamyelocytes) > 1% indicates that a LEFT SHIFT is Present. MCH (RBC) [Entitic mass] 29.3 pg 27.0-32.0 [facility] Nucleated RBC/100 WBC (Bld) [Ratio] 0 % 0-5 [facility] MCHC Auto (RBC) [Mass/Vol]Or dered By: Calvin Hester on 08-10-2023 MCHC (RBC) [Mass/Vol] 29.3 g/dL 32-36 [facility] No Panel InformationOrdered By: Calvin Hester on 08-10-2023 Estimated Creatinine Clearance Calc 45.09 ml/min [facility] Estimated GFR (MDRD) Amer 123 mL/min >60 [facility] Comment on above: GFR Calc Estimated GFR (MDRD) Non-Af Amer 101 mL/min >60 [facility] Comment on above: Non- GFR Calc Platelets bldOrdered By: Farooq Hester on 08-10-2023 Platelets (Bld) [#/Vol] 108 10*3/uL 150-450 [facility] Serum or plasma calcium celina urement (mass/volume)Ordered By: Calvin Hester on 08-10-2023 Calcium [Mass/Vol] 8.4 mg/dL 8.5-10.1 [facility] Serum or plasma creatinine m easurement (mass/volume)Ordered By: Calvin Hester on 08-10-2023 Creatinine [Mass/Vol] 0.61 mg/dL 0.55-1.02 [facility] Comment on above: The validity of the calculated GFR & GFRAA in patients over 70 years has not been determined. Clinical correlation is essential. Serum or plasma urea nitroge n measurement (mass/volume)Ordered By: Calvin Hester on 08-10-2023 Urea nitrogen [Mass/Vol] 18 mg/dL 7-18 [facility] Thin prep Papanicolaou smear with manual screeningOrdered By: Calvin Hester on 08-10-2023 Thin prep Papanicolaou smear with manual screening 1 5-15 [facility] Absolute lymphocyte countOrd ered By: Shahnaz Way on 07-14-2023 Lymphocytes Auto (Unsp spec) [#/Vol] 0.68 10*3/uL 0.83-4.51 [facility] Basophil percentageOrdered B y: Shahnaz Way on 07-14-2023 Basophil percentage 0 SEEN /hpf 0-5 [facility] Basophils/100 WBC (Bld) 0.2 % 0-1 [facility] Bilirubin [Mass/Vol] 0.30 mg/dL 0.20-1.00 [facility] Comment on above: For patients on eltr ombopag therapy, use of Dimension [place] TBIL is not recommended. Chloride [Moles/Vol] 103 mmol/L 98-107 [facility] Eosinophils/100 WBC (Bld) 1.3 % 0-5 [facility] Glucose [Mass/Vol] 127 mg/dL 74-106 [facility] Comment on above: Fasting Glucose resu lt greater than or equal to 126 mg/dL suggests DIABETES MELLITUS per A.D.A. criteria. Neutrophils (Bld) [#/Vol] 3.6 10*3/uL 2.0-7.7 [facility] Neutrophils/100 WBC (Bld) 76.9 % 47-70 [facility] Potassium [Moles/Vol] 3.7 mmol/L 3.5-5.1 [facility] Protein [Mass/Vol] 7.0 g/dL 6.4-8.2 [facility] Sodium [Moles/Vol] 144 mmol/L 136-145 [facility] WBC (Bld) [#/Vol] 4.6 10*3/uL 4.4-11.0 [facility] Bilirubin Test strip Ql (U)O rdered By: Shahnaz Way on 07-14-2023 Bilirubin Ql (U) Negative Negative [facility] Blood erythrocytes count (nu mber/volume)Ordered By: Shahnaz Way on 07-14-2023 RBC (Bld) [#/Vol] 3.10 10*6/uL 4.2-5.4 [facility] Blood hemoglobin measurement (mass/volume)Ordered By: Shahnaz Way on 07-14-2023 Hemoglobin (Bld) [Mass/Vol] 8.8 g/dL 12.0-15.0 [facility] Blood lymphocytes/100 leukoc ytesOrdered By: Shahnaz Way on 07-14-2023 Lymphocytes/100 WBC (Bld) 14.7 % 19-41 [facility] Blood monocytes/100 leukocyt esOrdered By: Shahnaz Way on 07-14-2023 Monocytes/100 WBC (Bld) 6.5 % 0-10 [facility] Blood platelet mean volumeOr dered By: Shahnaz Way on 07-14-2023 Platelet mean volume (Bld) [Entitic vol] 8.9 fL 6.2-12.0 [facility] Determination of erythrocyte mean corpuscular volume (MCV)Ordered By: Shahnaz Way on 07-14-2023 MCV (RBC) [Entitic vol] 101.3 fL 81-99 [facility] Hematocrit Auto (Bld) [Volum e fraction]Ordered By: Shahnaz Way on 07-14-2023 Hematocrit (Bld) [Volume fraction] 31.4 % 37-47 [facility] Ketones Test strip Ql (U)Ord ered By: Shahnaz Way on 07-14-2023 Ketones Ql (U) Negative Negative [facility] Laboratory - Chemistry and C hemistry - challengeOrdered By: Shahnaz Way on 07-14-2023 ALP [Catalytic activity/Vol] 76 U/L 45-117 [facility] ALT [Catalytic activity/Vol] 25 U/L 13-56 [facility] CO2 [Moles/Vol] 40.0 mmol/L 21.0-32.0 [facility] Globulin (S) [Mass/Vol] 4.4 g/dL 2.2-4.2 [facility] Urea nitrogen/Creatinine [Mass ratio] 37.6 mg/mg 10-20 [facility] Laboratory - Hematology and Cell countsOrdered By: Shahnaz Way on 07-14-2023 Erythrocyte distribution width (RBC) [Entitic vol] 53.1 fL 35.1-43.9 [facility] Erythrocyte distribution width (RBC) [Ratio] 14.4 % 11.6-14.6 [facility] Immature granulocytes/100 WBC (Bld) 0.400 % 0.0-0.9 [facility] Comment on above: IG% - Immature Granu locytes (promyelocytes, myelocytes and metamyelocytes) > 1% indicates that a LEFT SHIFT is Present. MCH (RBC) [Entitic mass] 28.4 pg 27.0-32.0 [facility] Nucleated RBC/100 WBC (Bld) [Ratio] 0 % 0-5 [facility] MCHC Auto (RBC) [Mass/Vol]Or dered By: Shahnaz Way on 07-14-2023 MCHC (RBC) [Mass/Vol] 28.0 g/dL 32-36 [facility] Mucus LM Ql (Urine sed)Order ed By: Shahnaz Way on 07-14-2023 Mucus Ql (Urine sed) 0 SEEN /hpf [facility] Nitrite Test strip Ql (U)Ord ered By: Shahnaz Way on 07-14-2023 Nitrite Ql (U) Negative Negative [facility] No Panel InformationOrdered By: Shahnaz Way on 07-14-2023 Estimated Creatinine Clearance Calc 45.09 ml/min [facility] Estimated GFR (MDRD) Amer 123 mL/min >60 [facility] Comment on above: GFR Calc Estimated GFR (MDRD) Non-Af Amer 102 mL/min >60 [facility] Comment on above: Non- GFR Calc Platelets bldOrdered By: Jaimee Way on 07-14-2023 Platelets (Bld) [#/Vol] 117 10*3/uL 150-450 [facility] Protein Test strip Ql (U)Ord ered By: Shahnaz Way on 07-14-2023 Protein Ql (U) 15 mg/dl Negative [facility] Serum or plasma albumin celina urement (mass/volume)Ordered By: Shahnaz Way on 07-14-2023 Albumin [Mass/Vol] 2.6 g/dL 3.2-5.0 [facility] Serum or plasma albumin/glob ulin mass ratioOrdered By: Shahnaz Way on 07-14-2023 Albumin/Globulin [Mass ratio] 0.6 {ratio} 0.9-2.4 [facility] Serum or plasma calcium celina urement (mass/volume)Ordered By: Shahnaz Way on 07-14-2023 Calcium [Mass/Vol] 8.8 mg/dL 8.5-10.1 [facility] Serum or plasma creatinine m easurement (mass/volume)Ordered By: Shahnaz Way on 07-14-2023 Creatinine [Mass/Vol] 0.61 mg/dL 0.55-1.02 [facility] Comment on above: The validity of the calculated GFR & GFRAA in patients over 70 years has not been determined. Clinical correlation is essential. Serum or plasma urea nitroge n measurement (mass/volume)Ordered By: Shahnaz Way on 07-14-2023 Urea nitrogen [Mass/Vol] 23 mg/dL 7-18 [facility] Squamous epithelial cells de tection in urine sediment by light microscopyOrdered By: Shahnaz Way on 07-14-2023 Epithelial cells.squamous LM Ql (Urine sed) 0 SEEN /hpf 5-10 [facility] Thin prep Papanicolaou smear with manual screeningOrdered By: Shahnaz Way on 07-14-2023 Thin prep Papanicolaou smear with manual screening 17 U/L 15-37 [facility] Thin prep Papanicolaou smear with manual screening 1 5-15 [facility] Urine blood detectionOrdered By: Shahnaz Way on 07-14-2023 RBC Ql (U) Negative Negative [facility] RBC Ql (U) 0-5 SEEN /hpf 0-5 [facility] Urine clarityOrdered By: Jaimee Way on 07-14-2023 Clarity (U) Clear Clear [facility] Urine color determinationOrd ered By: Shahnaz Way on 07-14-2023 Color (U) Yellow Yellow [facility] Urine glucose detectionOrder ed By: Shahnaz Way on 07-14-2023 Glucose Ql (U) Normal mg/dl Normal [facility] Urine leukocyte esterase det ection by dipstickOrdered By: Shahnaz Way on 07-14-2023 Leukocyte esterase Test strip Ql (U) Negative Negative [facility] Urine pHOrdered By: Shahnaz hoffman on 07-14-2023 pH (U) 6.0 [pH] 5.0 - 8.0 [facility] Urine sediment bacteria coun t by microscopy (number/high power field)Ordered By: Shahnaz Way on 07-14-2023 Bacteria LM.HPF (Urine sed) [#/Area] 0 /[HPF] None Seen [facility] Urine specific gravity measu rementOrdered By: Shahnaz Way on 07-14-2023 Specific gravity (U) [Rel density] 1.020 1.002-1.030 [facility] Urobilinogen Auto test strip Ql (U)Ordered By: Shahnaz Way on 07-14-2023 Urobilinogen Ql (U) Normal mg/dl Normal [facility] Basophil percentageOrdered B y: Jonathan Dillard on 06-28-2023 Bilirubin [Mass/Vol] 0.40 mg/dL 0.20-1.00 [facility] Comment on above: For patients on eltr ombopag therapy, use of Dimension [place] TBIL is not recommended. Chloride [Moles/Vol] 101 mmol/L 98-107 [facility] Glucose [Mass/Vol] 117 mg/dL 74-106 [facility] Comment on above: Fasting Glucose resu lt from 100 to 125 mg/dL suggests IMPAIRED HOMEOSTASIS per A.D.A. criteria. Potassium [Moles/Vol] 3.9 mmol/L 3.5-5.1 [facility] Protein [Mass/Vol] 6.8 g/dL 6.4-8.2 [facility] Sodium [Moles/Vol] 145 mmol/L 136-145 [facility] WBC (Bld) [#/Vol] 4.6 10*3/uL 4.4-11.0 [facility] Blood erythrocytes count (nu mber/volume)Ordered By: Jonathan Dillard on 06-28-2023 RBC (Bld) [#/Vol] 3.02 10*6/uL 4.2-5.4 [facility] Blood hemoglobin measurement (mass/volume)Ordered By: Jonathan Dillard on 06-28-2023 Hemoglobin (Bld) [Mass/Vol] 8.6 g/dL 12.0-15.0 [facility] Blood platelet mean volumeOr dered By: Jonathan Dillard on 06-28-2023 Platelet mean volume (Bld) [Entitic vol] 9.0 fL 6.2-12.0 [facility] Determination of erythrocyte mean corpuscular volume (MCV)Ordered By: Jonathan Dillard on 06-28-2023 MCV (RBC) [Entitic vol] 101.7 fL 81-99 [facility] Hematocrit Auto (Bld) [Volum e fraction]Ordered By: Jonathan Dillard on 06-28-2023 Hematocrit (Bld) [Volume fraction] 30.7 % 37-47 [facility] Laboratory - Chemistry and C hemistry - challengeOrdered By: Jonathan Dillard on 06-28-2023 ALP [Catalytic activity/Vol] 72 U/L 45-117 [facility] ALT [Catalytic activity/Vol] 16 U/L 13-56 [facility] CO2 [Moles/Vol] 43.0 mmol/L 21.0-32.0 [facility] Globulin (S) [Mass/Vol] 4.2 g/dL 2.2-4.2 [facility] [facility] Lipase [Catalytic activity/Vol] 18 U/L 13-75 [facility] Comment on above: Please note:LIPASE r evised reference range effective 23. New Lipase methodology. Expected to produce lower values than the previous assay method. NEW Reference Range: 13 - 75 U/L Urea nitrogen/Creatinine [Mass ratio] 32.5 mg/mg 10-20 [facility] Laboratory - Hematology and Cell countsOrdered By: Jonathan Dillard on 06-28-2023 Erythrocyte distribution width (RBC) [Entitic vol] 53.0 fL 35.1-43.9 [facility] Erythrocyte distribution width (RBC) [Ratio] 14.1 % 11.6-14.6 [facility] MCH (RBC) [Entitic mass] 28.5 pg 27.0-32.0 [facility] MCHC Auto (RBC) [Mass/Vol]Or dered By: Jonathan Dillard on 06-28-2023 MCHC (RBC) [Mass/Vol] 28.0 g/dL 32-36 [facility] No Panel InformationOrdered By: Jonathan Dillard on 08-15-2023 Estimated GFR (MDRD) Amer 115 mL/min >60 [facility] Comment on above: GFR Calc Estimated GFR (MDRD) Non-Af Amer 95 mL/min >60 [facility] Comment on above: Non- GFR Calc Platelets bldOrdered By: Mervat Dillard on 06-28-2023 Platelets (Bld) [#/Vol] 111 10*3/uL 150-450 [facility] Serum or plasma albumin celina urement (mass/volume)Ordered By: Jonathan Dillard on 06-28-2023 Albumin [Mass/Vol] 2.6 g/dL 3.2-5.0 [facility] Serum or plasma albumin/glob ulin mass ratioOrdered By: Jonathan Dillard on 06-28-2023 Albumin/Globulin [Mass ratio] 0.6 {ratio} 0.9-2.4 [facility] Serum or plasma calcium celina urement (mass/volume)Ordered By: Jonathan Dillard on 06-28-2023 Calcium [Mass/Vol] 9.0 mg/dL 8.5-10.1 [facility] Serum or plasma creatinine m easurement (mass/volume)Ordered By: Jonathan Dillard on 06-28-2023 Creatinine [Mass/Vol] 0.65 mg/dL 0.55-1.02 [facility] Comment on above: The validity of the calculated GFR & GFRAA in patients over 70 years has not been determined. Clinical correlation is essential. Serum or plasma urea nitroge n measurement (mass/volume)Ordered By: Jonathan Dillard on 06-28-2023 Urea nitrogen [Mass/Vol] 21 mg/dL 7-18 [facility] Thin prep Papanicolaou smear with manual screeningOrdered By: Jonathan Dillard on 06-28-2023 Thin prep Papanicolaou smear with manual screening 12 U/L 15-37 [facility] Thin prep Papanicolaou smear with manual screening 1 -15 [facility] Basophil percentageOrdered B y: Jonathan Dillard on 06-13-2023 Bilirubin [Mass/Vol] 0.40 mg/dL 0.20-1.00 [facility] Comment on above: For patients on eltr ombopag therapy, use of Dimension [place] TBIL is not recommended. Chloride [Moles/Vol] 104 mmol/L 98-107 [facility] Glucose [Mass/Vol] 114 mg/dL 74-106 [facility] Comment on above: Fasting Glucose resu lt from 100 to 125 mg/dL suggests IMPAIRED HOMEOSTASIS per A.D.A. criteria. Potassium [Moles/Vol] 4.0 mmol/L 3.5-5.1 [facility] Protein [Mass/Vol] 6.8 g/dL 6.4-8.2 [facility] Sodium [Moles/Vol] 146 mmol/L 136-145 [facility] WBC (Bld) [#/Vol] 4.5 10*3/uL 4.4-11.0 [facility] Blood erythrocytes count (nu mber/volume)Ordered By: Jonathan Dillard on 06-13-2023 RBC (Bld) [#/Vol] 3.13 10*6/uL 4.2-5.4 [facility] Blood hemoglobin measurement (mass/volume)Ordered By: Jonathan Dillard on 06-13-2023 Hemoglobin (Bld) [Mass/Vol] 9.0 g/dL 12.0-15.0 [facility] Blood platelet mean volumeOr dered By: Jonathan Dillard on 06-13-2023 Platelet mean volume (Bld) [Entitic vol] 9.1 fL 6.2-12.0 [facility] Determination of erythrocyte mean corpuscular volume (MCV)Ordered By: Jonathan Dillard on 06-13-2023 MCV (RBC) [Entitic vol] 100.6 fL 81-99 [facility] Hematocrit Auto (Bld) [Volum e fraction]Ordered By: Jonathan Dillard on 06-13-2023 Hematocrit (Bld) [Volume fraction] 31.5 % 37-47 [facility] Laboratory - Chemistry and C hemistry - challengeOrdered By: Jonathan Dillard on 06-13-2023 ALP [Catalytic activity/Vol] 72 U/L 45-117 [facility] ALT [Catalytic activity/Vol] 14 U/L 13-56 [facility] CO2 [Moles/Vol] 42.0 mmol/L 21.0-32.0 [facility] Globulin (S) [Mass/Vol] 4.2 g/dL 2.2-4.2 [facility] Urea nitrogen/Creatinine [Mass ratio] 30.8 mg/mg 10-20 [facility] Laboratory - Hematology and Cell countsOrdered By: Jonathan Dillard on 06-13-2023 Erythrocyte distribution width (RBC) [Entitic vol] 51.3 fL 35.1-43.9 [facility] Erythrocyte distribution width (RBC) [Ratio] 13.9 % 11.6-14.6 [facility] MCH (RBC) [Entitic mass] 28.8 pg 27.0-32.0 [facility] MCHC Auto (RBC) [Mass/Vol]Or dered By: Jonathan Dillard on 06-13-2023 MCHC (RBC) [Mass/Vol] 28.6 g/dL 32-36 [facility] No Panel InformationOrdered By: Jonathan Dillard on 06-13-2023 Estimated GFR (MDRD) Amer 115 mL/min >60 [facility] Comment on above: GFR Calc Estimated GFR (MDRD) Non-Af Amer 95 mL/min >60 [facility] Comment on above: Non- GFR Calc Platelets bldOrdered By: Mervat Dillard on 06-13-2023 Platelets (Bld) [#/Vol] 112 10*3/uL 150-450 [facility] Serum or plasma albumin celina urement (mass/volume)Ordered By: Jonathan Dillard on 06-13-2023 Albumin [Mass/Vol] 2.6 g/dL 3.2-5.0 [facility] Serum or plasma albumin/glob ulin mass ratioOrdered By: Jonathan Dillard on 06-13-2023 Albumin/Globulin [Mass ratio] 0.6 {ratio} 0.9-2.4 [facility] Serum or plasma calcium celian urement (mass/volume)Ordered By: Jonathan Dillard on 06-13-2023 Calcium [Mass/Vol] 8.9 mg/dL 8.5-10.1 [facility] Serum or plasma creatinine m easurement (mass/volume)Ordered By: Jonathan Dillard on 06-13-2023 Creatinine [Mass/Vol] 0.65 mg/dL 0.55-1.02 [facility] Comment on above: The validity of the calculated GFR & GFRAA in patients over 70 years has not been determined. Clinical correlation is essential. Serum or plasma urea nitroge n measurement (mass/volume)Ordered By: Jonathan Dillard on 06-13-2023 Urea nitrogen [Mass/Vol] 20 mg/dL 7-18 [facility] Thin prep Papanicolaou smear with manual screeningOrdered By: Jonathan Dillard on 06-13-2023 Thin prep Papanicolaou smear with manual screening 11 U/L 15-37 [facility] Thin prep Papanicolaou smear with manual screening 0 5-15 [facility] Absolute lymphocyte countOrd ered By: Delfin Jeffries on 05-04-2023 Lymphocytes Auto (Unsp spec) [#/Vol] 0.78 10*3/uL 0.83-4.51 [facility] Basophil percentageOrdered B y: Delfin Jeffries on 05-04-2023 Basophils/100 WBC (Bld) 0.2 % 0-1 [facility] Bilirubin [Mass/Vol] 0.40 mg/dL 0.20-1.00 [facility] Comment on above: For patients on eltr ombopag therapy, use of Dimension [place] TBIL is not recommended. Chloride [Moles/Vol] 104 mmol/L 98-107 [facility] Eosinophils/100 WBC (Bld) 1.3 % 0-5 [facility] Glucose [Mass/Vol] 175 mg/dL 74-106 [facility] Comment on above: Fasting Glucose resu lt greater than or equal to 126 mg/dL suggests DIABETES MELLITUS per A.D.A. criteria. LDH [Catalytic activity/Vol] 125 U/L 84-246 [facility] Neutrophils (Bld) [#/Vol] 4.2 10*3/uL 2.0-7.7 [facility] Neutrophils/100 WBC (Bld) 79.1 % 47-70 [facility] Potassium [Moles/Vol] 4.0 mmol/L 3.5-5.1 [facility] Protein [Mass/Vol] 7.5 g/dL 6.4-8.2 [facility] Sodium [Moles/Vol] 144 mmol/L 136-145 [facility] WBC (Bld) [#/Vol] 5.3 10*3/uL 4.4-11.0 [facility] Blood erythrocytes count (nu mber/volume)Ordered By: Delfin Jeffries on 05-04-2023 RBC (Bld) [#/Vol] 3.49 10*6/uL 4.2-5.4 [facility] Blood hemoglobin measurement (mass/volume)Ordered By: Delfin Jeffries on 05-04-2023 Hemoglobin (Bld) [Mass/Vol] 10.2 g/dL 12.0-15.0 [facility] Blood lymphocytes/100 leukoc ytesOrdered By: Delfin Jeffries on 05-04-2023 Lymphocytes/100 WBC (Bld) 14.7 % 19-41 [facility] Blood monocytes/100 leukocyt esOrdered By: Delfin Jeffries on 05-04-2023 Monocytes/100 WBC (Bld) 4.3 % 0-10 [facility] Blood platelet mean volumeOr dered By: Delfin Jeffries on 05-04-2023 Platelet mean volume (Bld) [Entitic vol] 8.6 fL 6.2-12.0 [facility] Determination of erythrocyte mean corpuscular volume (MCV)Ordered By: Delfin Jeffries on 05-04-2023 MCV (RBC) [Entitic vol] 99.7 fL 81-99 [facility] Hematocrit Auto (Bld) [Volum e fraction]Ordered By: Delfin Jeffries on 05-04-2023 Hematocrit (Bld) [Volume fraction] 34.8 % 37-47 [facility] Hemoglobin in reticulocytes (mass per reticulocyte)Ordered By: Delfin Jeffries on 05-04-2023 Hemoglobin (Reticulocytes) [Entitic mass] 31.0 pg 30-35 [facility] Iron measurement (mass/mass) Ordered By: Delfin Jeffries on 05-04-2023 Iron (Unsp spec) [Mass/Mass] 42 ug/dL 50-170 [facility] Laboratory - Chemistry and C hemistry - challengeOrdered By: Delfin Jeffries on 05-04-2023 ALP [Catalytic activity/Vol] 84 U/L 45-117 [facility] ALT [Catalytic activity/Vol] 21 U/L 13-56 [facility] CO2 [Moles/Vol] 39.0 mmol/L 21.0-32.0 [facility] Globulin (S) [Mass/Vol] 4.5 g/dL 2.2-4.2 [facility] Urea nitrogen/Creatinine [Mass ratio] 32.1 mg/mg 10-20 [facility] Laboratory - Hematology and Cell countsOrdered By: Delfin Jeffries on 05-04-2023 Erythrocyte distribution width (RBC) [Entitic vol] 51.9 fL 35.1-43.9 [facility] Erythrocyte distribution width (RBC) [Ratio] 14.6 % 11.6-14.6 [facility] Immature granulocytes/100 WBC (Bld) 0.400 % 0.0-0.9 [facility] Comment on above: IG% - Immature Granu locytes (promyelocytes, myelocytes and metamyelocytes) > 1% indicates that a LEFT SHIFT is Present. MCH (RBC) [Entitic mass] 29.2 pg 27.0-32.0 [facility] Nucleated RBC/100 WBC (Bld) [Ratio] 0 % 0-5 [facility] MCHC Auto (RBC) [Mass/Vol]Or dered By: Delfin Jeffries on 05-04-2023 MCHC (RBC) [Mass/Vol] 29.3 g/dL 32-36 [facility] No Panel InformationOrdered By: Delfin Jeffries on 05-04-2023 Estimated GFR (MDRD) Amer 103 mL/min >60 [facility] Comment on above: GFR Calc Estimated GFR (MDRD) Non-Af Amer 85 mL/min >60 [facility] Comment on above: Non- GFR Calc Immature Reticulocyte Fraction 26.90 % 3.00-15.90 [facility] Reticulocyte Count 2.39 % 0.5-1.5 [facility] Total Iron Binding Capacity 197 ug/dL 250-450 [facility] Platelets bldOrdered By: Luciano Jeffries on 05-04-2023 Platelets (Bld) [#/Vol] 107 10*3/uL 150-450 [facility] Serum or plasma albumin celina urement (mass/volume)Ordered By: Delfin Jeffries on 05-04-2023 Albumin [Mass/Vol] 3.0 g/dL 3.2-5.0 [facility] Serum or plasma albumin/glob ulin mass ratioOrdered By: Delfin Jeffries on 05-04-2023 Albumin/Globulin [Mass ratio] 0.7 {ratio} 0.9-2.4 [facility] Serum or plasma calcium celina urement (mass/volume)Ordered By: Delfin Jeffries on 05-04-2023 Calcium [Mass/Vol] 8.7 mg/dL 8.5-10.1 [facility] Serum or plasma creatinine m easurement (mass/volume)Ordered By: Delfin Benson on 05-04-2023 Creatinine [Mass/Vol] 0.72 mg/dL 0.55-1.02 [facility] Comment on above: The validity of the calculated GFR & GFRAA in patients over 70 years has not been determined. Clinical correlation is essential. Serum or plasma ferritin carter surement (mass/volume)Ordered By: Delfin Jeffries on 05-04-2023 Ferritin [Mass/Vol] 192 ng/mL 8-252 [facility] Serum or plasma iron saturat ion measurement (mass fraction)Ordered By: Delfin Kelley on 05-04-2023 Iron saturation [Mass fraction] 21.3 % 15.0-55.0 [facility] Serum or plasma urea nitroge n measurement (mass/volume)Ordered By: [facility]in [facility] 05-04-[facility]23 Urea nitrogen [Mass/Vol] 23 mg/dL 7-18 [facility] Thin prep Papanicolaou smear with manual screeningOrdered By: Delfin Jeffries on 05-04-2023 Thin prep Papanicolaou smear with manual screening 16 U/L 15-37 [facility] Thin prep Papanicolaou smear with manual screening 1 5-15 [facility] Absolute lymphocyte countOrd ered By: Dr. Vela on 04-19-2023 Lymphocytes Auto (Unsp spec) [#/Vol] 0.71 10*3/uL 0.83-4.51 [facility] Basophil percentageOrdered B y: Dr. Vela on 04-19-2023 Basophil percentage 0 SEEN /hpf 0-5 [facility] Basophils/100 WBC (Bld) 0.2 % 0-1 [facility] Bilirubin [Mass/Vol] 0.40 mg/dL 0.20-1.00 [facility] Comment on above: For patients on eltr ombopag therapy, use of Dimension [place] TBIL is not recommended. Chloride [Moles/Vol] 102 mmol/L 98-107 [facility] Eosinophils/100 WBC (Bld) 0.9 % 0-5 [facility] Glucose [Mass/Vol] 108 mg/dL 74-106 [facility] Comment on above: Fasting Glucose resu lt from 100 to 125 mg/dL suggests IMPAIRED HOMEOSTASIS per A.D.A. criteria. Neutrophils (Bld) [#/Vol] 5.2 10*3/uL 2.0-7.7 [facility] Neutrophils/100 WBC (Bld) 81.7 % 47-70 [facility] Potassium [Moles/Vol] 3.9 mmol/L 3.5-5.1 [facility] Protein [Mass/Vol] 7.7 g/dL 6.4-8.2 [facility] Sodium [Moles/Vol] 146 mmol/L 136-145 [facility] WBC (Bld) [#/Vol] 6.3 10*3/uL 4.4-11.0 [facility] Bilirubin Test strip Ql (U)O rdered By: Dr. Vela on 04-19-2023 Bilirubin Ql (U) Negative Negative [facility] Blood erythrocytes count (nu mber/volume)Ordered By: Dr. Vela on 04-19-2023 RBC (Bld) [#/Vol] 3.35 10*6/uL 4.2-5.4 [facility] Blood hemoglobin measurement (mass/volume)Ordered By: Dr. Vela on 04-19-2023 Hemoglobin (Bld) [Mass/Vol] 9.6 g/dL 12.0-15.0 [facility] Blood lymphocytes/100 leukoc ytesOrdered By: Dr. Vela on 04-19-2023 Lymphocytes/100 WBC (Bld) 11.2 % 19-41 [facility] Blood monocytes/100 leukocyt esOrdered By: Dr. Vela on 04-19-2023 Monocytes/100 WBC (Bld) 5.5 % 0-10 [facility] Blood platelet mean volumeOr dered By: Dr. Vela on 04-19-2023 Platelet mean volume (Bld) [Entitic vol] 9.5 fL 6.2-12.0 [facility] Determination of erythrocyte mean corpuscular volume (MCV)Ordered By: Dr. Vela on 04-19-2023 MCV (RBC) [Entitic vol] 98.5 fL 81-99 [facility] Hematocrit Auto (Bld) [Volum e fraction]Ordered By: Dr. Vela on 04-19-2023 Hematocrit (Bld) [Volume fraction] 33.0 % 37-47 [facility] Ketones Test strip Ql (U)Ord ered By: Dr. Vela on 04-19-2023 Ketones Ql (U) Negative Negative [facility] Laboratory - Chemistry and C hemistry - challengeOrdered By: Dr. Vela on 04-19-2023 ALP [Catalytic activity/Vol] 96 U/L 45-117 [facility] ALT [Catalytic activity/Vol] 21 U/L 13-56 [facility] CO2 [Moles/Vol] 41.0 mmol/L 21.0-32.0 [facility] Globulin (S) [Mass/Vol] 4.6 g/dL 2.2-4.2 [facility] Urea nitrogen/Creatinine [Mass ratio] 36.2 mg/mg 10-20 [facility] Laboratory - Hematology and Cell countsOrdered By: Dr. Vela on 04-19-2023 Erythrocyte distribution width (RBC) [Entitic vol] 50.7 fL 35.1-43.9 [facility] Erythrocyte distribution width (RBC) [Ratio] 14.2 % 11.6-14.6 [facility] Immature granulocytes/100 WBC (Bld) 0.500 % 0.0-0.9 [facility] Comment on above: IG% - Immature Granu locytes (promyelocytes, myelocytes and metamyelocytes) > 1% indicates that a LEFT SHIFT is Present. MCH (RBC) [Entitic mass] 28.7 pg 27.0-32.0 [facility] Nucleated RBC/100 WBC (Bld) [Ratio] 0 % 0-5 [facility] MCHC Auto (RBC) [Mass/Vol]Or dered By: Dr. Vela on 04-19-2023 MCHC (RBC) [Mass/Vol] 29.1 g/dL 32-36 [facility] Mucus LM Ql (Urine sed)Order ed By: Dr. Vela on 04-19-2023 Mucus Ql (Urine sed) 0 SEEN /hpf [facility] Nitrite Test strip Ql (U)Ord ered By: Dr. Vela on 04-19-2023 Nitrite Ql (U) Negative Negative [facility] No Panel InformationOrdered By: Dr. Vela on 04-19-2023 Estimated Creatinine Clearance Calc 45.09 ml/min [facility] Estimated GFR (MDRD) Amer 118 mL/min >60 [facility] Comment on above: GFR Calc Estimated GFR (MDRD) Non-Af Amer 97 mL/min >60 [facility] Comment on above: Non- GFR Calc Platelets bldOrdered By: Dr. Vela on 04-19-2023 Platelets (Bld) [#/Vol] 103 10*3/uL 150-450 [facility] Protein Test strip Ql (U)Ord ered By: Dr. Vela on 04-19-2023 Protein Ql (U) Negative Negative [facility] Serum or plasma albumin celina urement (mass/volume)Ordered By: Dr. Vela on 04-19-2023 Albumin [Mass/Vol] 3.1 g/dL 3.2-5.0 [facility] Serum or plasma albumin/glob ulin mass ratioOrdered By: Dr. Vela on 04-19-2023 Albumin/Globulin [Mass ratio] 0.7 {ratio} 0.9-2.4 [facility] Serum or plasma calcium celina urement (mass/volume)Ordered By: Dr. Vela on 04-19-2023 Calcium [Mass/Vol] 9.3 mg/dL 8.5-10.1 [facility] Serum or plasma creatinine m easurement (mass/volume)Ordered By: Dr. Vela on 04-19-2023 Creatinine [Mass/Vol] 0.64 mg/dL 0.55-1.02 [facility] Comment on above: The validity of the calculated GFR & GFRAA in patients over 70 years has not been determined. Clinical correlation is essential. Serum or plasma urea nitroge n measurement (mass/volume)Ordered By: Dr. Vela on 04-19-2023 Urea nitrogen [Mass/Vol] 23 mg/dL 7-18 [facility] Squamous epithelial cells de tection in urine sediment by light microscopyOrdered By: Dr. Vela on 04-19-2023 Epithelial cells.squamous LM Ql (Urine sed) 0 SEEN /hpf 5-10 [facility] Thin prep Papanicolaou smear with manual screeningOrdered By: Dr. Vela on 04-19-2023 Thin prep Papanicolaou smear with manual screening 16 U/L 15-37 [facility] Thin prep Papanicolaou smear with manual screening 3 5-15 [facility] Urine blood detectionOrdered By: Dr. Vela on 04-19-2023 RBC Ql (U) Negative Negative [facility] RBC Ql (U) 0 SEEN /hpf 0-5 [facility] Urine clarityOrdered By: Dr. Vela on 04-19-2023 Clarity (U) Clear Clear [facility] Urine color determinationOrd ered By: Dr. Vela on 04-19-2023 Color (U) Yellow Yellow [facility] Urine glucose detectionOrder ed By: Dr. Vela on 04-19-2023 Glucose Ql (U) Normal mg/dl Normal [facility] Urine leukocyte esterase det ection by dipstickOrdered By: Dr. Vela on 04-19-2023 Leukocyte esterase Test strip Ql (U) Negative Negative [facility] Urine pHOrdered By: Dr. Isaias barkley on 04-19-2023 pH (U) 6.5 [pH] 5.0 - 8.0 [facility] Urine sediment bacteria coun t by microscopy (number/high power field)Ordered By: Dr. Vela on 04-19-2023 Bacteria LM.HPF (Urine sed) [#/Area] 0 /[HPF] None Seen [facility] Urine specific gravity measu rementOrdered By: Dr. Vela on 04-19-2023 Specific gravity (U) [Rel density] 1.010 1.002-1.030 [facility] Urobilinogen Auto test strip Ql (U)Ordered By: Dr. Vela on 04-19-2023 Urobilinogen Ql (U) Normal mg/dl Normal [facility] Culture, urineOrdered By: Sutherland Deperrletty on 04-15-2023 Bacteria identified Cx Nom (U) Presumptive E. coli [facility] Bacteria identified Cx Nom (U) Klebsiella pneumoniae sp pneum [facility] Basophil percentageOrdered B y: Jonathan Dillard on 04-12-2023 Basophil percentage 0-5 SEEN /hpf 0-5 [facility] Bilirubin [Mass/Vol] 0.50 mg/dL 0.20-1.00 [facility] Comment on above: For patients on eltr ombopag therapy, use of Dimension [place] TBIL is not recommended. Chloride [Moles/Vol] 102 mmol/L 98-107 [facility] Glucose [Mass/Vol] 122 mg/dL 74-106 [facility] Comment on above: Fasting Glucose resu lt from 100 to 125 mg/dL suggests IMPAIRED HOMEOSTASIS per A.D.A. criteria. Potassium [Moles/Vol] 3.7 mmol/L 3.5-5.1 [facility] Protein [Mass/Vol] 6.9 g/dL 6.4-8.2 [facility] Sodium [Moles/Vol] 145 mmol/L 136-145 [facility] WBC (Bld) [#/Vol] 5.1 10*3/uL 4.4-11.0 [facility] Bilirubin Test strip Ql (U)O rdered By: Jonathan Dillard on 04-12-2023 Bilirubin Ql (U) Negative Negative [facility] Blood erythrocytes count (nu mber/volume)Ordered By: Jonathan Dillard on 04-12-2023 RBC (Bld) [#/Vol] 3.16 10*6/uL 4.2-5.4 [facility] Blood hemoglobin measurement (mass/volume)Ordered By: Jonathan Dillard on 04-12-2023 Hemoglobin (Bld) [Mass/Vol] 8.9 g/dL 12.0-15.0 [facility] Blood platelet mean volumeOr dered By: Jonathan Dillard on 04-12-2023 Platelet mean volume (Bld) [Entitic vol] 9.1 fL 6.2-12.0 [facility] Culture, urineOrdered By: Higuera on 04-12-2023 Bacteria identified Cx Nom (U) Presumptive E. coli [facility] Bacteria identified Cx Nom (U) Klebsiella pneumoniae sp pneum [facility] Determination of erythrocyte mean corpuscular volume (MCV)Ordered By: Jonathan Dillard on 04-12-2023 MCV (RBC) [Entitic vol] 99.7 fL 81-99 [facility] Hematocrit Auto (Bld) [Volum e fraction]Ordered By: Jonathan Dillard on 04-12-2023 Hematocrit (Bld) [Volume fraction] 31.5 % 37-47 [facility] Ketones Test strip Ql (U)Ord ered By: Jonathan Dillard on 04-12-2023 Ketones Ql (U) Negative Negative [facility] Laboratory - Chemistry and C hemistry - challengeOrdered By: Jonathan Dillard on 04-12-2023 ALP [Catalytic activity/Vol] 83 U/L 45-117 [facility] ALT [Catalytic activity/Vol] 20 U/L 13-56 [facility] CO2 [Moles/Vol] 42.0 mmol/L 21.0-32.0 [facility] Globulin (S) [Mass/Vol] 4.1 g/dL 2.2-4.2 [facility] Urea nitrogen/Creatinine [Mass ratio] 34.6 mg/mg 10-20 [facility] Laboratory - Hematology and Cell countsOrdered By: Jonathan Dillard on 04-12-2023 Erythrocyte distribution width (RBC) [Entitic vol] 53.0 fL 35.1-43.9 [facility] Erythrocyte distribution width (RBC) [Ratio] 14.5 % 11.6-14.6 [facility] MCH (RBC) [Entitic mass] 28.2 pg 27.0-32.0 [facility] MCHC Auto (RBC) [Mass/Vol]Or dered By: Jonathan Dillard on 04-12-2023 MCHC (RBC) [Mass/Vol] 28.3 g/dL 32-36 [facility] Mucus LM Ql (Urine sed)Order ed By: Jonathan Dillard on 04-12-2023 Mucus Ql (Urine sed) 0 SEEN /hpf [facility] Nitrite Test strip Ql (U)Ord ered By: Jonathan Dillard on 04-12-2023 Nitrite Ql (U) Negative Negative [facility] No Panel InformationOrdered By: Jonathan Dillard on 04-12-2023 Estimated GFR (MDRD) Amer 112 mL/min >60 [facility] Comment on above: GFR Calc Estimated GFR (MDRD) Non-Af Amer 93 mL/min >60 [facility] Comment on above: Non- GFR Calc Platelets bldOrdered By: Mervat Dillard on 04-12-2023 Platelets (Bld) [#/Vol] 115 10*3/uL 150-450 [facility] Protein Test strip Ql (U)Ord ered By: Jonathan Dillard on 04-12-2023 Protein Ql (U) Negative Negative [facility] Serum or plasma albumin celina urement (mass/volume)Ordered By: Jonathan Dillard on 04-12-2023 Albumin [Mass/Vol] 2.8 g/dL 3.2-5.0 [facility] Serum or plasma albumin/glob ulin mass ratioOrdered By: Jonathan Dillard on 04-12-2023 Albumin/Globulin [Mass ratio] 0.7 {ratio} 0.9-2.4 [facility] Serum or plasma calcium celina urement (mass/volume)Ordered By: Jonathan Dillard on 04-12-2023 Calcium [Mass/Vol] 9.0 mg/dL 8.5-10.1 [facility] Serum or plasma creatinine m easurement (mass/volume)Ordered By: Jonathan Dillard on 04-12-2023 Creatinine [Mass/Vol] 0.66 mg/dL 0.55-1.02 [facility] Comment on above: The validity of the calculated GFR & GFRAA in patients over 70 years has not been determined. Clinical correlation is essential. Serum or plasma urea nitroge n measurement (mass/volume)Ordered By: Jonathan Dillard on 04-12-2023 Urea nitrogen [Mass/Vol] 23 mg/dL 7-18 [facility] Squamous epithelial cells de tection in urine sediment by light microscopyOrdered By: Jonathan Dillard on 04-12-2023 Epithelial cells.squamous LM Ql (Urine sed) 0-5 SEEN /hpf 5-10 [facility] Thin prep Papanicolaou smear with manual screeningOrdered By: Jonathan Dillard on 04-12-2023 Thin prep Papanicolaou smear with manual screening 14 U/L 15-37 [facility] Thin prep Papanicolaou smear with manual screening 1 5-15 [facility] Urine blood detectionOrdered By: Jonathan Dillard on 04-12-2023 RBC Ql (U) Negative Negative [facility] RBC Ql (U) 0-5 SEEN /hpf 0-5 [facility] Urine clarityOrdered By: Mervat Dillard on 04-12-2023 Clarity (U) Clear Clear [facility] Urine color determinationOrd ered By: Jonathan Dillard on 04-12-2023 Color (U) Yellow Yellow [facility] Urine glucose detectionOrder ed By: Jonathan Dillard on 04-12-2023 Glucose Ql (U) Normal mg/dl Normal [facility] Urine leukocyte esterase det ection by dipstickOrdered By: Jonathan Dillard on 04-12-2023 Leukocyte esterase Test strip Ql (U) 25 /ul Negative [facility] Urine pHOrdered By: Jonathan ramirez on 04-12-2023 pH (U) 5.0 [pH] 5.0 - 8.0 [facility] Urine sediment bacteria coun t by microscopy (number/high power field)Ordered By: Jonathan Dillard on 04-12-2023 Bacteria LM.HPF (Urine sed) [#/Area] 0 /[HPF] None Seen [facility] Urine specific gravity measu rementOrdered By: Jonathan Dillard on 04-12-2023 Specific gravity (U) [Rel density] 1.020 1.002-1.030 [facility] Urobilinogen Auto test strip Ql (U)Ordered By: Jonathan Dillard on 04-12-2023 Urobilinogen Ql (U) Normal mg/dl Normal [facility] Basophil percentageOrdered B y: Jonathan Dillard on 03-28-2023 WBC (Bld) [#/Vol] 4.3 10*3/uL 4.4-11.0 [facility] Blood erythrocytes count (nu mber/volume)Ordered By: Jonathan Dillard on 03-28-2023 RBC (Bld) [#/Vol] 3.38 10*6/uL 4.2-5.4 [facility] Blood hemoglobin measurement (mass/volume)Ordered By: Jonathan Dillard on 03-28-2023 Hemoglobin (Bld) [Mass/Vol] 9.5 g/dL 12.0-15.0 [facility] Blood platelet mean volumeOr dered By: Jonathan Dillard on 03-28-2023 Platelet mean volume (Bld) [Entitic vol] 9.3 fL 6.2-12.0 [facility] Determination of erythrocyte mean corpuscular volume (MCV)Ordered By: Jonathan Dillard on 03-28-2023 MCV (RBC) [Entitic vol] 100.6 fL 81-99 [facility] Hematocrit Auto (Bld) [Volum e fraction]Ordered By: Jonathan Dillard on 03-28-2023 Hematocrit (Bld) [Volume fraction] 34.0 % 37-47 [facility] Laboratory - Hematology and Cell countsOrdered By: Jonathan Dillard on 03-28-2023 Erythrocyte distribution width (RBC) [Entitic vol] 54.0 fL 35.1-43.9 [facility] Erythrocyte distribution width (RBC) [Ratio] 14.7 % 11.6-14.6 [facility] MCH (RBC) [Entitic mass] 28.1 pg 27.0-32.0 [facility] MCHC Auto (RBC) [Mass/Vol]Or dered By: Jonathan Dillard on 03-28-2023 MCHC (RBC) [Mass/Vol] 27.9 g/dL 32-36 [facility] Platelets bldOrdered By: Mervat Dillard on 03-28-2023 Platelets (Bld) [#/Vol] 116 10*3/uL 150-450 [facility] Absolute lymphocyte countOrd ered By: Dr. Jeffries on 03-09-2023 Lymphocytes Auto (Unsp spec) [#/Vol] 0.69 10*3/uL 0.83-4.51 [facility] Basophil percentageOrdered B y: Dr. Jeffries on 03-09-2023 Basophil percentage 3.0 mg/dL 2.5-4.9 [facility] Basophils/100 WBC (Bld) 0.2 % 0-1 [facility] Eosinophils/100 WBC (Bld) 0.9 % 0-5 [facility] LDH [Catalytic activity/Vol] 131 U/L 84-246 [facility] Neutrophils (Bld) [#/Vol] 4.4 10*3/uL 2.0-7.7 [facility] Neutrophils/100 WBC (Bld) 80.2 % 47-70 [facility] WBC (Bld) [#/Vol] 5.5 10*3/uL 4.4-11.0 [facility] Blood erythrocytes count (nu mber/volume)Ordered By: Dr. Jeffries on 03-09-2023 RBC (Bld) [#/Vol] 3.49 10*6/uL 4.2-5.4 [facility] Blood hemoglobin measurement (mass/volume)Ordered By: Dr. Jeffries on 03-09-2023 Hemoglobin (Bld) [Mass/Vol] 9.6 g/dL 12.0-15.0 [facility] Blood lymphocytes/100 leukoc ytesOrdered By: Dr. Jeffries on 03-09-2023 Lymphocytes/100 WBC (Bld) 12.6 % 19-41 [facility] Blood monocytes/100 leukocyt esOrdered By: Dr. Jeffries on 03-09-2023 Monocytes/100 WBC (Bld) 5.7 % 0-10 [facility] Blood platelet mean volumeOr dered By: Dr. Jeffries on 03-09-2023 Platelet mean volume (Bld) [Entitic vol] 9.6 fL 6.2-12.0 [facility] Determination of erythrocyte mean corpuscular volume (MCV)Ordered By: Dr. Jeffries on 03-09-2023 MCV (RBC) [Entitic vol] 97.7 fL 81-99 [facility] Hematocrit Auto (Bld) [Volum e fraction]Ordered By: Dr. Jeffries on 03-09-2023 Hematocrit (Bld) [Volume fraction] 34.1 % 37-47 [facility] Iron measurement (mass/mass) Ordered By: Dr. Jeffries on 03-09-2023 Iron (Unsp spec) [Mass/Mass] 30 ug/dL 50-170 [facility] Laboratory - Chemistry and C hemistry - challengeOrdered By: Dr. Jeffries on 03-09-2023 Cobalamin (Vitamin B12) [Mass/Vol] 669 pg/mL 211-911 [facility] Magnesium [Mass/Vol] 2.0 mg/dL 1.6-2.6 [facility] Laboratory - Hematology and Cell countsOrdered By: Dr. Jeffries on 03-09-2023 Erythrocyte distribution width (RBC) [Entitic vol] 52.1 fL 35.1-43.9 [facility] Erythrocyte distribution width (RBC) [Ratio] 14.6 % 11.6-14.6 [facility] Immature granulocytes/100 WBC (Bld) 0.400 % 0.0-0.9 [facility] Comment on above: IG% - Immature Granu locytes (promyelocytes, myelocytes and metamyelocytes) > 1% indicates that a LEFT SHIFT is Present. MCH (RBC) [Entitic mass] 27.5 pg 27.0-32.0 [facility] Nucleated RBC/100 WBC (Bld) [Ratio] 0 % 0-5 [facility] MCHC Auto (RBC) [Mass/Vol]Or dered By: Dr. Jeffries on 03-09-2023 MCHC (RBC) [Mass/Vol] 28.2 g/dL 32-36 [facility] No Panel InformationOrdered By: Dr. Jeffries on 03-09-2023 Total Iron Binding Capacity 196 ug/dL 250-450 [facility] Platelets bldOrdered By: Dr. Jeffries on 03-09-2023 Platelets (Bld) [#/Vol] 109 10*3/uL 150-450 [facility] Serum or plasma ferritin carter surement (mass/volume)Ordered By: Dr. Jeffries on 03-09-2023 Ferritin [Mass/Vol] 67 ng/mL 8-252 [facility] Serum or plasma iron saturat ion measurement (mass fraction)Ordered By: Dr. Jeffries on 03-09-2023 Iron saturation [Mass fraction] 15.3 % 15.0-55.0 [facility] No Panel InformationOrdered By: Jonathan Dillard on 03-08-2023 CA 125 Antigen 28.1 U/mL 0.0-38.1 [facility] Comment on above: [facility] El ectrochemiluminescence Immunoassay(ECLIA)Values obtained with different assay methods or kits cannotbe used interchangeably. Results cannot be interpreted asabsolute evidence of the presence or absence of malignantdisease.Performed at: [employer] [facility] [id number] Director: Mark Woo PhD, Phone: [phone] Basophil percentageOrdered B y: Jonathan Dillard on 03-04-2023 Chloride [Moles/Vol] 102 mmol/L 98-107 [facility] Glucose [Mass/Vol] 154 mg/dL 74-106 [facility] Comment on above: Fasting Glucose resu lt greater than or equal to 126 mg/dL suggests DIABETES MELLITUS per A.D.A. criteria. Potassium [Moles/Vol] 3.5 mmol/L 3.5-5.1 [facility] Sodium [Moles/Vol] 144 mmol/L 136-145 [facility] Laboratory - Chemistry and C hemistry - challengeOrdered By: Jonathan Dillard on 03-04-2023 CO2 [Moles/Vol] 44.0 mmol/L 21.0-32.0 [facility] Urea nitrogen/Creatinine [Mass ratio] 29.9 mg/mg 10-20 [facility] No Panel InformationOrdered By: Jonathan Dillard on 03-04-2023 Estimated GFR (MDRD) Amer 111 mL/min >60 [facility] Comment on above: GFR Calc Estimated GFR (MDRD) Non-Af Amer 92 mL/min >60 [facility] Comment on above: Non- GFR Calc Serum or plasma calcium celina urement (mass/volume)Ordered By: Jonathan Dillard on 03-04-2023 Calcium [Mass/Vol] 9.0 mg/dL 8.5-10.1 [facility] Serum or plasma creatinine m easurement (mass/volume)Ordered By: Jonathan Dillard on 03-04-2023 Creatinine [Mass/Vol] 0.67 mg/dL 0.55-1.02 [facility] Comment on above: The validity of the calculated GFR & GFRAA in patients over 70 years has not been determined. Clinical correlation is essential. Serum or plasma urea nitroge n measurement (mass/volume)Ordered By: Jonathan Dillard on 03-04-2023 Urea nitrogen [Mass/Vol] 20 mg/dL 7-18 [facility] Thin prep Papanicolaou smear with manual screeningOrdered By: Jonathan Dillard on 03-04-2023 Thin prep Papanicolaou smear with manual screening -2 5-15 [facility] Basophil percentageOrdered B y: Jonathan Dillard on 02-28-2023 Chloride [Moles/Vol] 104 mmol/L 98-107 [facility] Glucose [Mass/Vol] 150 mg/dL 74-106 [facility] Comment on above: Fasting Glucose resu lt greater than or equal to 126 mg/dL suggests DIABETES MELLITUS per A.D.A. criteria. Potassium [Moles/Vol] 3.4 mmol/L 3.5-5.1 [facility] Sodium [Moles/Vol] 144 mmol/L 136-145 [facility] WBC (Bld) [#/Vol] 4.5 10*3/uL 4.4-11.0 [facility] Blood erythrocytes count (nu mber/volume)Ordered By: Jonathan Dillard on 02-28-2023 RBC (Bld) [#/Vol] 3.23 10*6/uL 4.2-5.4 [facility] Blood hemoglobin measurement (mass/volume)Ordered By: Jonathan Dillard on 02-28-2023 Hemoglobin (Bld) [Mass/Vol] 8.9 g/dL 12.0-15.0 [facility] Blood platelet mean volumeOr dered By: Jonathan Dillard on 02-28-2023 Platelet mean volume (Bld) [Entitic vol] 9.3 fL 6.2-12.0 [facility] Determination of erythrocyte mean corpuscular volume (MCV)Ordered By: Jonathan Dillard on 02-28-2023 MCV (RBC) [Entitic vol] 97.5 fL 81-99 [facility] Hematocrit Auto (Bld) [Volum e fraction]Ordered By: Jonathan Dillard on 02-28-2023 Hematocrit (Bld) [Volume fraction] 31.5 % 37-47 [facility] Laboratory - Chemistry and C hemistry - challengeOrdered By: Jonathan Dillard on 02-28-2023 CO2 [Moles/Vol] 41.0 mmol/L 21.0-32.0 [facility] Urea nitrogen/Creatinine [Mass ratio] 26.5 mg/mg 10-20 [facility] Laboratory - Hematology and Cell countsOrdered By: Jonathan Dillard on 02-28-2023 Erythrocyte distribution width (RBC) [Entitic vol] 51.0 fL 35.1-43.9 [facility] Erythrocyte distribution width (RBC) [Ratio] 14.2 % 11.6-14.6 [facility] MCH (RBC) [Entitic mass] 27.6 pg 27.0-32.0 [facility] MCHC Auto (RBC) [Mass/Vol]Or dered By: Jonathan Dillard on 02-28-2023 MCHC (RBC) [Mass/Vol] 28.3 g/dL 32-36 [facility] No Panel InformationOrdered By: Jonathan Dillard on 02-28-2023 Estimated GFR (MDRD) Amer 125 mL/min >60 [facility] Comment on above: GFR Calc Estimated GFR (MDRD) Non-Af Amer 104 mL/min >60 [facility] Comment on above: Non- GFR Calc Platelets bldOrdered By: Mervat Dillard on 02-28-2023 Platelets (Bld) [#/Vol] 130 10*3/uL 150-450 [facility] Serum or plasma calcium celina urement (mass/volume)Ordered By: Jonathan Dillard on 02-28-2023 Calcium [Mass/Vol] 8.9 mg/dL 8.5-10.1 [facility] Serum or plasma creatinine m easurement (mass/volume)Ordered By: Jonathan Dillard on 02-28-2023 Creatinine [Mass/Vol] 0.60 mg/dL 0.55-1.02 [facility] Comment on above: The validity of the calculated GFR & GFRAA in patients over 70 years has not been determined. Clinical correlation is essential. Serum or plasma urea nitroge n measurement (mass/volume)Ordered By: Jonathan Dillard on 02-28-2023 Urea nitrogen [Mass/Vol] 16 mg/dL 7-18 [facility] Thin prep Papanicolaou smear with manual screeningOrdered By: Jonathan Dillard on 02-28-2023 Thin prep Papanicolaou smear with manual screening -1 5-15 [facility] Absolute lymphocyte countOrd ered By: Dr. Jaime on 02-25-2023 Lymphocytes Auto (Unsp spec) [#/Vol] 0.74 10*3/uL 0.83-4.51 [facility] Basophil percentageOrdered B y: Dr. Jaime on 02-25-2023 Basophils/100 WBC (Bld) 0.2 % 0-1 [facility] Eosinophils/100 WBC (Bld) 1.2 % 0-5 [facility] Neutrophils (Bld) [#/Vol] 4.0 10*3/uL 2.0-7.7 [facility] Neutrophils/100 WBC (Bld) 79.1 % 47-70 [facility] WBC (Bld) [#/Vol] 5.1 10*3/uL 4.4-11.0 [facility] Bilirubin [Mass/Vol] 0.40 mg/dL 0.20-1.00 [facility] Comment on above: For patients on eltr ombopag therapy, use of Dimension [place] TBIL is not recommended. Chloride [Moles/Vol] 106 mmol/L 98-107 [facility] Glucose [Mass/Vol] 106 mg/dL 74-106 [facility] Comment on above: Fasting Glucose resu lt from 100 to 125 mg/dL suggests IMPAIRED HOMEOSTASIS per A.D.A. criteria. Potassium [Moles/Vol] 4.3 mmol/L 3.5-5.1 [facility] Protein [Mass/Vol] 7.1 g/dL 6.4-8.2 [facility] Sodium [Moles/Vol] 142 mmol/L 136-145 [facility] Blood erythrocytes count (nu mber/volume)Ordered By: Dr. Jaime on 02-25-2023 RBC (Bld) [#/Vol] 3.46 10*6/uL 4.2-5.4 [facility] Blood hemoglobin measurement (mass/volume)Ordered By: Dr. Jaime on 02-25-2023 Hemoglobin (Bld) [Mass/Vol] 9.5 g/dL 12.0-15.0 [facility] Blood lymphocytes/100 leukoc ytesOrdered By: Dr. Jaime on 02-25-2023 Lymphocytes/100 WBC (Bld) 14.7 % 19-41 [facility] Blood monocytes/100 leukocyt esOrdered By: Dr. Jaime on 02-25-2023 Monocytes/100 WBC (Bld) 4.4 % 0-10 [facility] Blood platelet mean volumeOr dered By: Dr. Jaime on 02-25-2023 Platelet mean volume (Bld) [Entitic vol] 8.7 fL 6.2-12.0 [facility] COVID-19 virus antigen assay Ordered By: Dr. Jaime on 02-25-2023 SARS-CoV-2 (COVID-19) Ag IA.rapid Ql (Resp) [facility] Determination of erythrocyte mean corpuscular volume (MCV)Ordered By: Dr. Jaime on 02-25-2023 MCV (RBC) [Entitic vol] 98.3 fL 81-99 [facility] Hematocrit Auto (Bld) [Volum e fraction]Ordered By: Dr. Jaime on 02-25-2023 Hematocrit (Bld) [Volume fraction] 34.0 % 37-47 [facility] Laboratory - Chemistry and C hemistry - challengeOrdered By: Dr. Jaime on 02-25-2023 ALP [Catalytic activity/Vol] 69 U/L 45-117 [facility] ALT [Catalytic activity/Vol] 23 U/L 13-56 [facility] CO2 [Moles/Vol] 34.0 mmol/L 21.0-32.0 [facility] Globulin (S) [Mass/Vol] 4.5 g/dL 2.2-4.2 [facility] Urea nitrogen/Creatinine [Mass ratio] 27.0 mg/mg 10-20 [facility] Laboratory - Hematology and Cell countsOrdered By: Dr. Jaime on 02-25-2023 Erythrocyte distribution width (RBC) [Entitic vol] 52.0 fL 35.1-43.9 [facility] Erythrocyte distribution width (RBC) [Ratio] 14.5 % 11.6-14.6 [facility] Immature granulocytes/100 WBC (Bld) 0.400 % 0.0-0.9 [facility] Comment on above: IG% - Immature Granu locytes (promyelocytes, myelocytes and metamyelocytes) > 1% indicates that a LEFT SHIFT is Present. MCH (RBC) [Entitic mass] 27.5 pg 27.0-32.0 [facility] Nucleated RBC/100 WBC (Bld) [Ratio] 0 % 0-5 [facility] Laboratory - Microbiology an d Antimicrobial susceptibilityOrdered By: Dr. Monique on 02-25-2023 Bacteria identified Cx Nom (Bld) No growth in 5 days. [facility] MCHC Auto (RBC) [Mass/Vol]Or dered By: Dr. Jaime on 02-25-2023 MCHC (RBC) [Mass/Vol] 27.9 g/dL 32-36 [facility] No Panel InformationOrdered By: Dr. Jaime on 02-25-2023 Estimated Creatinine Clearance Calc 53.04 ml/min [facility] Estimated GFR (MDRD) Amer 84 mL/min >60 [facility] Comment on above: GFR Calc Estimated GFR (MDRD) Non-Af Amer 69 mL/min >60 [facility] Comment on above: Non- GFR Calc Platelets bldOrdered By: Dr. Jaime on 02-25-2023 Platelets (Bld) [#/Vol] 146 10*3/uL 150-450 [facility] Serum or plasma albumin celina urement (mass/volume)Ordered By: Dr. Jaime on 02-25-2023 Albumin [Mass/Vol] 2.6 g/dL 3.2-5.0 [facility] Serum or plasma albumin/glob ulin mass ratioOrdered By: Dr. Jaime on 02-25-2023 Albumin/Globulin [Mass ratio] 0.6 {ratio} 0.9-2.4 [facility] Serum or plasma calcium celina urement (mass/volume)Ordered By: Dr. Jaime on 02-25-2023 Calcium [Mass/Vol] 8.7 mg/dL 8.5-10.1 [facility] Serum or plasma creatinine m easurement (mass/volume)Ordered By: Dr. Jaime on 02-25-2023 Creatinine [Mass/Vol] 0.85 mg/dL 0.55-1.02 [facility] Comment on above: The validity of the calculated GFR & GFRAA in patients over 70 years has not been determined. Clinical correlation is essential. Serum or plasma urea nitroge n measurement (mass/volume)Ordered By: Dr. Jaime on 02-25-2023 Urea nitrogen [Mass/Vol] 23 mg/dL 7-18 [facility] Thin prep Papanicolaou smear with manual screeningOrdered By: Dr. Jaime on 02-25-2023 Thin prep Papanicolaou smear with manual screening 20 U/L 15-37 [facility] Thin prep Papanicolaou smear with manual screening 2 5-15 [facility] Glucose Glucometer (BldC) [M ass/Vol]Ordered By: Dr. Jaime on 02-23-2023 Glucose [Mass/Vol] 136 mg/dL 74-106 [facility] Comment on above: MANAGEMENT OF PATIEN T CARE PER NURSING PROTOCOL Blood manual differential co mment interpretation (narrative result)Ordered By: Dr. Jaime on 02-22-2023 Manual differential comment Ajit (Bld) [Interp] SCANNED [facility] Comment on above: LYMPHOPENIA Clostridium difficile detect ion by polymerase chain reactionOrdered By: Dr. Banks on 02-22-2023 C. difficile DNA ISA+probe Ql (Unsp spec) [facility] Base excessOrdered By: Dr. Joshua greenfield on 02-21-2023 Base excess Calc (BldV) [Moles/Vol] 12 mmol/L -2-2 [facility] Basophil percentageOrdered B y: Dr. Jaime on 02-21-2023 Basophil percentage 36.1 mmol/L 22-26 [facility] Basophils/100 WBC (Bld) 98 % 95-99 [facility] Blood platelet adequacy dete ction by light microscopyOrdered By: Dr. Padron on 02-21-2023 Platelets LM Ql (Bld) SLT DEC ADEQ [facility] CO2 (BldA) [Partial pressure ]Ordered By: Dr. Jaime on 02-21-2023 CO2 (Bld) [Partial pressure] 52.0 mm[Hg] 35-45 [facility] Culture, urineOrdered By: Dr Che Monique on 02-21-2023 Bacteria identified Cx Nom (U) Culture exhibits no growth. [facility] No Panel InformationOrdered By: Dr. Jaime on 02-21-2023 Bedside Blood Gas PEEP 7 [facility] Bedside Blood Gas Pressure Support 7 [facility] Blood Gas Oxygen Percent 50 [facility] Blood Gas Sample Site R Brach [facility] Blood Gas Specimen Type ART [facility] Blood Gas Total CO2 38 mmol/L [facility] Blood Gas Vent Mode CPAP/PS [facility] Oxygen (BldA) [Partial press ure]Ordered By: Dr. Jaime on 02-21-2023 Oxygen (Bld) [Partial pressure] 99 mmHG 75-100 [facility] Review by pathologistOrdered By: Dr. Padron on 02-21-2023 Pathologist review Ajit (Unsp spec) [Interp] Reviewed [facility] Comment on above: Previous reported re sult: March bernarda Edited by: RGOOD on 02/23/23:1043Pancytopenia.Leukopenia Normocytic anemia.Mild ThrombocytopeniaClinical correlation necessary.Blas Carrillo M.D. 02/23/23 AMENDED REPORT 02/23/23 1043 PATH REV previously reported as: Uyen menchaca Vancomycin troughOrdered By: Dr. Padron on 02-21-2023 Vancomycin trough [Mass/Vol] 25.5 ug/mL 5.0-15.0 [facility] Comment on above: VANCOMYCIN STANDARED DRUG THERAPY TROUGH LEVEL: 5.0 - 15.0 mg/L VANCOMYCIN HIGH INTENSITY THERAPY TROUGH LEVEL: 15.0 - 20.0 mg/L High Intensity therapy recommended for serious lifethreatening infections include:- Wqhsckhcaf-Dtkrncdqmbqd-Wqpqdcidn (Ventilator/Healtcare Associated)-Sepsis PLEASE CONTACT PHARMACY SERVICES (#1370) FOR INTERPRETATIONOF RESULTS. pH measurementOrdered By: Dr Che Jaime on 02-21-2023 pH (Unsp spec) 7.45 [pH] 7.35-7.45 [facility] Assessment of wrist artery p atency prior to arterial punctureOrdered By: Dr. Padron on 02-20-2023 Arterial patency Wrist artery --pre arterial puncture Positive [facility] Basophil percentageOrdered B y: Dr. Monique on 02-20-2023 Triglyceride [Mass/Vol] 141 mg/dL <199 [facility] Comment on above: The drugs N-Acetylcy steine and Metamizole may falsely depress this assay.Serum Triglycerides Reference Interval Normal <150 mg/dL Borderline high 150 - 199 mg/dL High 200 - 499 mg/dL Very High > or = 500 mg/dL Laboratory - Chemistry and C hemistry - challengeOrdered By: Dr. Monique on 02-20-2023 CK [Catalytic activity/Vol] 26 U/L 26-192 [facility] No Panel InformationOrdered By: Dr. Padron on 02-20-2023 Blood Gas Respiration Rate 15 [facility] Oxygen Delivery Device Adult Vent [facility] Basophil percentageOrdered B y: Dr. Padron on 02-19-2023 Basophil percentage 3.6 mg/dL 2.5-4.9 [facility] Laboratory - Chemistry and C hemistry - challengeOrdered By: Dr. Padron on 02-19-2023 Magnesium [Mass/Vol] 2.0 mg/dL 1.6-2.6 [facility] No Panel InformationOrdered By: Dr. Padron on 02-19-2023 Bld Gas Crit Called To/Read Back By Yes [facility] Blood Gas Notified Amanda MONIQUE [facility] Blood Gas Tidal Volume 325 [facility] Laboratory - Hematology and Cell countsOrdered By: Dr. Resendiz on 02-18-2023 Anisocytosis Ql (Bld) 1+ [facility] No Panel InformationOrdered By: Dr. Padron on 02-18-2023 Blood Gas Notified Time 1716 [facility] No Panel InformationOrdered By: Dr. Monique on 02-18-2023 Miscellaneous Test See comment [facility] Comment on above: TEST RESULT LIMITSRe [...] Detected Not Detected __ TESTING PERFORMED AT [facility]. ORIGINAL REPORT ON FILE IN LAB CONTAINS ADDITIONAL TEST SITE INFORMATION. No Panel InformationOrdered By: Dr. Resendiz on 02-18-2023 Thyroid Stimulating Hormone (TSH) 0.74 uIU/mL 0.358-3.74 [facility] Methicillin-Resist S.aureus DNA PCR Positive Negative [facility] Serum procalcitonin measurem entOrdered By: Dr. Resendiz on 02-18-2023 Procalcitonin [Mass/Vol] 0.13 ng/mL 0.00-0.09 [facility] Comment on above: A procalcitonin (PCT ) [...] Auto (Unsp spec) [#/Vol] 0.69 10*3/uL 0.83-4.51 [facility] Assessment of wrist artery p atency prior to arterial punctureOrdered By: Dr. Resendiz on 02-17-2023 Arterial patency Wrist artery --pre arterial puncture Positive [facility] Base excessOrdered By: Dr. Deepika hernandez on 02-17-2023 Base excess Calc (BldV) [Moles/Vol] 26 mmol/L -2-2 [facility] Basophil percentageOrdered B y: Dr. Resendiz on 02-17-2023 Basophil percentage 51.8 mmol/L 22-26 [facility] Basophils/100 WBC (Bld) 88 % 95-99 [facility] Basophil percentageOrdered B y: Dr. Tsai on 02-17-2023 Basophil percentage 0 SEEN /hpf 0-5 [facility] Basophils/100 WBC (Bld) 0.4 % 0-1 [facility] Bilirubin [Mass/Vol] 0.50 mg/dL 0.20-1.00 [facility] Comment on above: For patients on eltr ombopag therapy, use of Dimension [place] TBIL is not recommended. Chloride [Moles/Vol] 102 mmol/L 98-107 [facility] Eosinophils/100 WBC (Bld) 0.2 % 0-5 [facility] Glucose [Mass/Vol] 238 mg/dL 74-106 [facility] Comment on above: Glucose result great er than or equal to 200 mg/dLsuggests DIABETES MELLITUS per A.D.A. criteria. Neutrophils (Bld) [#/Vol] 9.1 10*3/uL 2.0-7.7 [facility] Neutrophils/100 WBC (Bld) 87.0 % 47-70 [facility] Potassium [Moles/Vol] 4.1 mmol/L 3.5-5.1 [facility] Protein [Mass/Vol] 7.6 g/dL 6.4-8.2 [facility] Sodium [Moles/Vol] 145 mmol/L 136-145 [facility] WBC (Bld) [#/Vol] 10.5 10*3/uL 4.4-11.0 [facility] Bilirubin Test strip Ql (U)O rdered By: Dr. Tsai on 02-17-2023 Bilirubin Ql (U) Negative Negative [facility] Blood erythrocytes count (nu mber/volume)Ordered By: Dr. Tsai on 02-17-2023 RBC (Bld) [#/Vol] 3.69 10*6/uL 4.2-5.4 [facility] Blood hemoglobin measurement (mass/volume)Ordered By: Dr. Tsai on 02-17-2023 Hemoglobin (Bld) [Mass/Vol] 10.1 g/dL 12.0-15.0 [facility] Blood lymphocytes/100 leukoc ytesOrdered By: Dr. Tsai on 02-17-2023 Lymphocytes/100 WBC (Bld) 6.6 % 19-41 [facility] Blood monocytes/100 leukocyt esOrdered By: Dr. Tsai on 02-17-2023 Monocytes/100 WBC (Bld) 3.6 % 0-10 [facility] Blood platelet mean volumeOr dered By: Dr. Tsai on 02-17-2023 Platelet mean volume (Bld) [Entitic vol] 8.4 fL 6.2-12.0 [facility] CO2 (BldA) [Partial pressure ]Ordered By: Dr. Resendiz on 02-17-2023 CO2 (Bld) [Partial pressure] 96.6 mm[Hg] 35-45 [facility] Determination of erythrocyte mean corpuscular volume (MCV)Ordered By: Dr. Tsai on 02-17-2023 MCV (RBC) [Entitic vol] 101.1 fL 81-99 [facility] Hematocrit Auto (Bld) [Volum e fraction]Ordered By: Dr. Tsai on 02-17-2023 Hematocrit (Bld) [Volume fraction] 37.3 % 37-47 [facility] Hyaline casts LM.LPF (Urine sed) [#/Area]Ordered By: Dr. Tsai on 02-17-2023 Hyaline casts (Urine sed) [#/Area] 0 /[LPF] 0-5 [facility] Ketones Test strip Ql (U)Ord ered By: Dr. Tsai on 02-17-2023 Ketones Ql (U) Negative Negative [facility] Laboratory - Chemistry and C hemistry - challengeOrdered By: Dr. Tsai on 02-17-2023 ALP [Catalytic activity/Vol] 99 U/L 45-117 [facility] ALT [Catalytic activity/Vol] 26 U/L 13-56 [facility] CO2 [Moles/Vol] 45.0 mmol/L 21.0-32.0 [facility] Globulin (S) [Mass/Vol] 4.7 g/dL 2.2-4.2 [facility] Urea nitrogen/Creatinine [Mass ratio] 36.2 mg/mg 10-20 [facility] Laboratory - Chemistry and C hemistry - challengeOrdered By: Dr. Resendiz on 02-17-2023 Natriuretic peptide B (Bld) [Mass/Vol] 132.9 pg/mL 0-100 [facility] Laboratory - Drug toxicology Ordered By: Dr. Tsai on 02-17-2023 Amphetamines Ql (U) Negative <1000 ng/mL [facility] Benzodiazepines Ql (U) Negative < 200 ng/mL [facility] Cannabinoids Screen Ql (U) Negative < 50 ng/mL [facility] Cocaine Ql (U) Negative < 300 ng/mL [facility] Opiates Ql (U) Negative < 300 ng/mL [facility] Laboratory - Hematology and Cell countsOrdered By: Dr. Tsai on 02-17-2023 Erythrocyte distribution width (RBC) [Entitic vol] 55.7 fL 35.1-43.9 [facility] Erythrocyte distribution width (RBC) [Ratio] 15.0 % 11.6-14.6 [facility] Immature granulocytes/100 WBC (Bld) 2.200 % 0.0-0.9 [facility] Comment on above: IG% - Immature Granu locytes (promyelocytes, myelocytes and metamyelocytes) > 1% indicates that a LEFT SHIFT is Present. MCH (RBC) [Entitic mass] 27.4 pg 27.0-32.0 [facility] Nucleated RBC/100 WBC (Bld) [Ratio] 0.2 % 0-5 [facility] MCHC Auto (RBC) [Mass/Vol]Or dered By: Dr. Tsai on 02-17-2023 MCHC (RBC) [Mass/Vol] 27.1 g/dL 32-36 [facility] Mucus LM Ql (Urine sed)Order ed By: Dr. Tsai on 02-17-2023 Mucus Ql (Urine sed) 0 SEEN /hpf [facility] Nitrite Test strip Ql (U)Ord ered By: Dr. Tsai on 02-17-2023 Nitrite Ql (U) Negative Negative [facility] No Panel InformationOrdered By: Dr. Resendiz on 02-17-2023 Bedside Blood Gas PEEP 5 [facility] Bld Gas Crit Called To/Read Back By Yes [facility] Blood Gas Notified Time 2245 [facility] Blood Gas Notified Whom ED [facility] Blood Gas Oxygen Percent 60 [facility] Blood Gas Respiration Rate 16 [facility] Blood Gas Sample Site L RADIAL [facility] Blood Gas Specimen Type ART [facility] Blood Gas Tidal Volume 450 [facility] Blood Gas Total CO2 > 50 mmol/L [facility] Blood Gas Vent Mode AC/VC [facility] Oxygen Delivery Device Vent [facility] No Panel InformationOrdered By: Dr. Tsai on 02-17-2023 Ethyl Alcohol Level < 3.0 mg/dL [facility] Comment on above: The serum:whole bloo d ethanol ratio is approximately 1.14and varies slightly with hematocrit. Medical Alcohol reference interval and critical value innon-tolerant individuals; 50 - 100 Impairment 100 Intoxication 100 - 250 Severe Poisoning 250 - 400 Deep/possible fatal coma MDMA (Ecstasy) Screen Negative < 500 ng/mL [facility] Urine Barbiturates Screen Negative < 200 ng/mL [facility] Urine Drug Screen Comment [facility] Comment on above: CONFIRMATORY TESTING FOR ALL [...] Methadone Screen Negative < 300 ng/mL [facility] Estimated Creatinine Clearance Calc 45.09 ml/min [facility] Estimated GFR (MDRD) Amer 118 mL/min >60 [facility] Comment on above: GFR Calc Estimated GFR (MDRD) Non-Af Amer 98 mL/min >60 [facility] Comment on above: Non- GFR Calc Troponin I High Sensitivity 13 pg/mL 3.0-54.0 [facility] Comment on above: Please Note: New Rosalie t Units and Gender Specific Reference Ranges. For more information see Policy Stat Procedure [place] High Sensitivity Troponin (TNIH) and attachments. Oxygen (BldA) [Partial press ure]Ordered By: Dr. Resendiz on 02-17-2023 Oxygen (Bld) [Partial pressure] 64 mmHG 75-100 [facility] Platelets bldOrdered By: Dr. Tsai on 02-17-2023 Platelets (Bld) [#/Vol] 163 10*3/uL 150-450 [facility] Protein Test strip Ql (U)Ord ered By: Dr. Tsai on 02-17-2023 Protein Ql (U) 100 mg/dl Negative [facility] Serum or plasma albumin celina urement (mass/volume)Ordered By: Dr. Tsai on 02-17-2023 Albumin [Mass/Vol] 2.9 g/dL 3.2-5.0 [facility] Serum or plasma albumin/glob ulin mass ratioOrdered By: Dr. Tsai on 02-17-2023 Albumin/Globulin [Mass ratio] 0.6 {ratio} 0.9-2.4 [facility] Serum or plasma calcium celina urement (mass/volume)Ordered By: Dr. Tsai on 02-17-2023 Calcium [Mass/Vol] 8.9 mg/dL 8.5-10.1 [facility] Serum or plasma creatinine m easurement (mass/volume)Ordered By: Dr. Tsai on 02-17-2023 Creatinine [Mass/Vol] 0.64 mg/dL 0.55-1.02 [facility] Comment on above: The validity of the calculated GFR & GFRAA in patients over 70 years has not been determined. Clinical correlation is essential. Serum or plasma urea nitroge n measurement (mass/volume)Ordered By: Dr. Tsai on 02-17-2023 Urea nitrogen [Mass/Vol] 23 mg/dL 7-18 [facility] Squamous epithelial cells de tection in urine sediment by light microscopyOrdered By: Dr. Tsai on 02-17-2023 Epithelial cells.squamous LM Ql (Urine sed) 0-5 SEEN /hpf 5-10 [facility] Thin prep Papanicolaou smear with manual screeningOrdered By: Dr. Tsai on 02-17-2023 Thin prep Papanicolaou smear with manual screening 21 U/L 15-37 [facility] Thin prep Papanicolaou smear with manual screening -2 5-15 [facility] Urine blood detectionOrdered By: Dr. Tsai on 02-17-2023 RBC Ql (U) 25 /ul Negative [facility] RBC Ql (U) 0-5 SEEN /hpf 0-5 [facility] Urine clarityOrdered By: Dr. Tsai on 02-17-2023 Clarity (U) Sl. Cloudy Clear [facility] Urine coarse granular cast d etectionOrdered By: Dr. Tsai on 02-17-2023 Coarse Granular Casts LM Ql (Urine sed) 0-5 SEEN /lpf 0-5 /lpf [facility] Urine color determinationOrd ered By: Dr. Tsai on 02-17-2023 Color (U) Yellow Yellow [facility] Urine glucose detectionOrder ed By: Dr. Tsai on 02-17-2023 Glucose Ql (U) Normal mg/dl Normal [facility] Urine leukocyte esterase det ection by dipstickOrdered By: Dr. Tsai on 02-17-2023 Leukocyte esterase Test strip Ql (U) Negative Negative [facility] Urine pHOrdered By: Dr. Paul kohli on 02-17-2023 pH (U) 5.0 [pH] 5.0 - 8.0 [facility] Urine phencyclidine (PCP) de tectionOrdered By: Dr. Tsai on 02-17-2023 Phencyclidine Ql (U) Negative < 25 ng/mL [facility] Urine sediment bacteria coun t by microscopy (number/high power field)Ordered By: Dr. Tsai on 02-17-2023 Bacteria LM.HPF (Urine sed) [#/Area] 0 /[HPF] None Seen [facility] Urine specific gravity measu rementOrdered By: Dr. Tsai on 02-17-2023 Specific gravity (U) [Rel density] 1.030 1.002-1.030 [facility] Urobilinogen Auto test strip Ql (U)Ordered By: Dr. Tsai on 02-17-2023 Urobilinogen Ql (U) Normal mg/dl Normal [facility] pH measurementOrdered By: Dr Che Resendiz on 02-17-2023 pH (Unsp spec) 7.34 [pH] 7.35-7.45 [facility] No Panel InformationOrdered By: Jonathan Dillard on 02-07-2023 Miscellaneous Test See comment [facility] Comment on above: TEST RESULTS LIMITSS ARS-CoV-2, [id number]-7, ISA Not Detected Not DetectedThis nucleic acid amplification test was developed and its performance characteristics determined by [employer]. Nucleic acid amplification tests include RT-PCR and [...] result in this assay. [facility] ORIGINAL REPORT ON FILE IN LAB CONTAINS ADDITIONAL TEST SITE INFORMATION. Absolute lymphocyte countOrd ered By: Dr. Jeffries on 01-11-2023 Lymphocytes Auto (Unsp spec) [#/Vol] 0.59 10*3/uL 0.83-4.51 [facility] Basophil percentageOrdered B y: Dr. Jeffries on 01-11-2023 Basophils/100 WBC (Bld) 0.2 % 0-1 [facility] Bilirubin [Mass/Vol] 0.50 mg/dL 0.20-1.00 [facility] Comment on above: For patients on eltr ombopag therapy, use of Dimension [place] TBIL is not recommended. Chloride [Moles/Vol] 99 mmol/L 98-107 [facility] Eosinophils/100 WBC (Bld) 1.1 % 0-5 [facility] Glucose [Mass/Vol] 124 mg/dL 74-106 [facility] Comment on above: Fasting Glucose resu lt from 100 to 125 mg/dL suggests IMPAIRED HOMEOSTASIS per A.D.A. criteria. LDH [Catalytic activity/Vol] 147 U/L 84-246 [facility] Neutrophils (Bld) [#/Vol] 4.4 10*3/uL 2.0-7.7 [facility] Neutrophils/100 WBC (Bld) 81.5 % 47-70 [facility] Potassium [Moles/Vol] 4.2 mmol/L 3.5-5.1 [facility] Protein [Mass/Vol] 7.1 g/dL 6.4-8.2 [facility] Sodium [Moles/Vol] 146 mmol/L 136-145 [facility] WBC (Bld) [#/Vol] 5.4 10*3/uL 4.4-11.0 [facility] Blood erythrocytes count (nu mber/volume)Ordered By: Dr. Jeffries on 01-11-2023 RBC (Bld) [#/Vol] 3.43 10*6/uL 4.2-5.4 [facility] Blood hemoglobin measurement (mass/volume)Ordered By: Dr. Jeffries on 01-11-2023 Hemoglobin (Bld) [Mass/Vol] 9.7 g/dL 12.0-15.0 [facility] Blood lymphocytes/100 leukoc ytesOrdered By: Dr. Jeffries on 01-11-2023 Lymphocytes/100 WBC (Bld) 11.0 % 19-41 [facility] Blood manual differential co mment interpretation (narrative result)Ordered By: Dr. Jeffries on 01-11-2023 Manual differential comment Ajit (Bld) [Interp] SCANNED [facility] Blood monocytes/100 leukocyt esOrdered By: Dr. Jeffries on 01-11-2023 Monocytes/100 WBC (Bld) 5.6 % 0-10 [facility] Blood platelet mean volumeOr dered By: Dr. Jeffries on 01-11-2023 Platelet mean volume (Bld) [Entitic vol] 8.4 fL 6.2-12.0 [facility] Determination of erythrocyte mean corpuscular volume (MCV)Ordered By: Dr. Jeffries on 01-11-2023 MCV (RBC) [Entitic vol] 97.4 fL 81-99 [facility] Hematocrit Auto (Bld) [Volum e fraction]Ordered By: Dr. Jeffries on 01-11-2023 Hematocrit (Bld) [Volume fraction] 33.4 % 37-47 [facility] Hemoglobin in reticulocytes (mass per reticulocyte)Ordered By: Dr. Jeffries on 01-11-2023 Hemoglobin (Reticulocytes) [Entitic mass] 24.6 pg 30-35 [facility] Hypochromatic red blood cell detectionOrdered By: Dr. Jeffries on 01-11-2023 Hypochromia Ql (Bld) 2+ [facility] Iron measurement (mass/mass) Ordered By: Dr. Jeffries on 01-11-2023 Iron (Unsp spec) [Mass/Mass] 35 ug/dL 50-170 [facility] Laboratory - Chemistry and C hemistry - challengeOrdered By: Dr. Jeffries on 01-11-2023 ALP [Catalytic activity/Vol] 81 U/L 45-117 [facility] ALT [Catalytic activity/Vol] 15 U/L 13-56 [facility] CO2 [Moles/Vol] 43.0 mmol/L 21.0-32.0 [facility] Cobalamin (Vitamin B12) [Mass/Vol] 561 pg/mL 211-911 [facility] Globulin (S) [Mass/Vol] 3.9 g/dL 2.2-4.2 [facility] Urea nitrogen/Creatinine [Mass ratio] 22.3 mg/mg 10-20 [facility] Laboratory - Hematology and Cell countsOrdered By: Dr. Jeffries on 01-11-2023 Erythrocyte distribution width (RBC) [Entitic vol] 51.6 fL 35.1-43.9 [facility] Erythrocyte distribution width (RBC) [Ratio] 14.5 % 11.6-14.6 [facility] Immature granulocytes/100 WBC (Bld) 0.600 % 0.0-0.9 [facility] Comment on above: IG% - Immature Granu locytes (promyelocytes, myelocytes and metamyelocytes) > 1% indicates that a LEFT SHIFT is Present. MCH (RBC) [Entitic mass] 28.3 pg 27.0-32.0 [facility] Nucleated RBC/100 WBC (Bld) [Ratio] 0 % 0-5 [facility] MCHC Auto (RBC) [Mass/Vol]Or dered By: Dr. Jeffries on 01-11-2023 MCHC (RBC) [Mass/Vol] 29.0 g/dL 32-36 [facility] No Panel InformationOrdered By: Dr. Jeffries on 01-11-2023 Estimated GFR (MDRD) Amer 102 mL/min >60 [facility] Comment on above: GFR Calc Estimated GFR (MDRD) Non-Af Amer 85 mL/min >60 [facility] Comment on above: Non- GFR Calc Immature Platelet Fraction 1.3 % 1.0-7.9 [facility] Comment on above: Low PLT + Low IPF faust ggest a bone marrow production disorderLow PLT + high IPF suggests peripheral destruction(e.g.ITP, TTP, HIT, DIC, autoimmune) or bone marrow recoveryTrending of serial IPF measurements is recommended when evaluating for bone marrow responesValue above normal range indicates an increase in RBC cellular response from bone marrow. Immature Reticulocyte Fraction 23.00 % 3.00-15.90 [facility] Reticulocyte Count 2.53 % 0.5-1.5 [facility] Total Iron Binding Capacity 186 ug/dL 250-450 [facility] Platelets bldOrdered By: Dr. Jeffries on 01-11-2023 Platelets (Bld) [#/Vol] 138 10*3/uL 150-450 [facility] Serum or plasma albumin celina urement (mass/volume)Ordered By: Dr. Jeffries on 01-11-2023 Albumin [Mass/Vol] 3.2 g/dL 3.2-5.0 [facility] Serum or plasma albumin/glob ulin mass ratioOrdered By: Dr. Jeffries on 01-11-2023 Albumin/Globulin [Mass ratio] 0.8 {ratio} 0.9-2.4 [facility] Serum or plasma calcium celina urement (mass/volume)Ordered By: Dr. Jeffries on 01-11-2023 Calcium [Mass/Vol] 9.1 mg/dL 8.5-10.1 [facility] Serum or plasma creatinine m easurement (mass/volume)Ordered By: Dr. Jeffries on 01-11-2023 Creatinine [Mass/Vol] 0.72 mg/dL 0.55-1.02 [facility] Comment on above: The validity of the calculated GFR & GFRAA in patients over 70 years has not been determined. Clinical correlation is essential. Serum or plasma ferritin carter surement (mass/volume)Ordered By: Dr. Jeffries on 01-11-2023 Ferritin [Mass/Vol] 55 ng/mL 8-252 [facility] Serum or plasma folate measu rement (mass/volume)Ordered By: Dr. Jeffries on 01-11-2023 Folate [Mass/Vol] 73.30 ng/mL 3.1-55.4 [facility] Serum or plasma iron saturat ion measurement (mass fraction)Ordered By: Dr. Jeffries on 01-11-2023 Iron saturation [Mass fraction] 18.8 % 15.0-55.0 [facility] Serum or plasma urea nitroge n measurement (mass/volume)Ordered By: Dr. Jeffries on 01-11-2023 Urea nitrogen [Mass/Vol] 16 mg/dL 7-18 [facility] Thin prep Papanicolaou smear with manual screeningOrdered By: Dr. Jeffries on 01-11-2023 Thin prep Papanicolaou smear with manual screening 14 U/L 15-37 [facility] Thin prep Papanicolaou smear with manual screening 4 5-15 [facility] Progress Noteon 11-02-2022 Progress Note Obese hypertensive [...] pancytopenia. Of note she states she saw hospice clinical supervisor 6 years ago and underwent a bone [...] Stable, follow-up with surgery as discussed Normal [facility] Basophil percentageOrdered B y: Stef Villegas on 11-01-2022 WBC (Bld) [#/Vol] 4.9 10*3/uL 4.4-11.0 [facility] Blood erythrocytes count (nu mber/volume)Ordered By: Stef Villegas on 11-01-2022 RBC (Bld) [#/Vol] 3.26 10*6[facility] hemoglobin measurement (mass/volume)Ordered By: Stef Villegas on 11-01-2022 Hemoglobin (Bld) [Mass/Vol] 8.9 g/dL 12.0-15.0 [facility] Blood platelet mean volumeOr dered By: Stef Villegas on 11-01-2022 Platelet mean volume (Bld) [Entitic vol] 10.0 fL 6.2-12.0 [facility] Determination of erythrocyte mean corpuscular volume (MCV)Ordered By: Stef Villegas on 11-01-2022 MCV (RBC) [Entitic vol] 96.0 fL 81-99 [facility] Hematocrit Auto (Bld) [Volum e fraction]Ordered By: Stef Villegas on 11-01-2022 Hematocrit (Bld) [Volume fraction] 31.3 % 37-47 [facility] Iron measurement (mass/mass) Ordered By: Stef Villegas on 11-01-2022 Iron (Unsp spec) [Mass/Mass] 29 ug/dL 50-170 [facility] Laboratory - Chemistry and C hemistry - challengeOrdered By: Stef Villegas on 11-01-2022 Cobalamin (Vitamin B12) [Mass/Vol] 208 pg/mL 211-911 [facility] Laboratory - Hematology and Cell countsOrdered By: Stef Villegas on 11-01-2022 Erythrocyte distribution width (RBC) [Entitic vol] 49.5 fL 35.1-43.9 [facility] Erythrocyte distribution width (RBC) [Ratio] 14.2 % 11.6-14.6 [facility] MCH (RBC) [Entitic mass] 27.3 pg 27.0-32.0 [facility] MCHC Auto (RBC) [Mass/Vol]Or dered By: Stef Villegas on 11-01-2022 MCHC (RBC) [Mass/Vol] 28.4 g/dL 32-36 [facility] No Panel InformationOrdered By: Stef Villegas on 11-01-2022 Total Iron Binding Capacity 212 ug/dL 250-450 [facility] Platelets bldOrdered By: Elida Villegas on 11-01-2022 Platelets (Bld) [#/Vol] 94 10*3/uL 150-450 [facility] Comment on above: PREVIOUS RESULTS <10 0. Serum or plasma ferritin carter surement (mass/volume)Ordered By: Stef Villegas on 11-01-2022 Ferritin [Mass/Vol] 45 ng/mL 8-252 [facility] Serum or plasma folate measu rement (mass/volume)Ordered By: Stef Bakari on 11-01-2022 Folate [Mass/Vol] 6.00 ng/mL 3.1-55.4 [facility] Serum or plasma iron saturat ion measurement (mass fraction)Ordered By: Stef Bakari on 11-01-2022 Iron saturation [Mass fraction] 13.7 % 15.0-55.0 [facility] [address] SPINE CERVICAL W/O CONTRA STon 10-30-2022 [...] 10/30/2022 12:08:00 PM Ordering Provider: [facility] Progress [facility] 10-20-2022 [...] discussed discharge status with nursing and social work associate is looking into assisted living facility placement in the near future. Normal [facility] XR SPINE CERVICAL AP/LAT/FLE X/EXTon 10-06-2022 [...] Sign Date: 10/06/2022 11:46:14 AM Ordering Provider[facility] XR SPINE THORACIC 2 VIEWSon 10-06-2022 XR [...] Sign Date: 10/06/2022 11:47:34 AM Ordering Provider: [facility] Basophil percentageon 2021 Basophil percentage 0 SEEN /h[facility] 0-5 [facility]: Bilirubin Test strip Ql (U)o n 10-05-2022 Bilirubin Ql (U) Negative Negative [facility] Work Phone: Ketones Test strip Ql (U)on 10-05-2022 Ketones Ql (U) Negative Negative [facility] Work Phone: Mucus LM Ql (Urine sed)on Mucus Ql (Urine sed) 0 SEEN /hpf [facility] Work Phone: Nitrite Test strip Ql (U)on 10-05-2022 Nitrite Ql (U) Negative Negative [facility] Work Phone: Protein Test strip Ql (U)on 10-05-2022 Protein Ql (U) Negative Negative [facility] Work Phone: Squamous epithelial cells de tection in urine sediment by light microscopyon 10-05-2022 Epithelial cells.squamous LM Ql (Urine sed) 0 SEEN /hpf 5-10 [facility] Work Phone: Urine blood detectionon 09-15 RBC Ql (U) Negative Negative [facility] Work Phone: RBC Ql (U) 0 SEEN /hpf 0-5 [facility] Work Phone: Urine clarityon 10-05-2022 Clarity (U) Clear Clear [facility] Work Phone: Urine color determinationon 10-05-2022 Color (U) Yellow Yellow [facility] Work Phone: Urine glucose detectionon Glucose Ql (U) Normal mg/dl Normal [facility] Work Phone: Urine leukocyte esterase det ection by dipstickon 10-05-2022 Leukocyte esterase Test strip Ql (U) Negative Negative [facility] Work Phone: Urine pHon 10-05-2022 pH (U) 7.0 [pH] 5.0 - 8.0 [facility] Work Phone: Urine sediment bacteria coun t by microscopy (number/high power field)on 10-05-2022 Bacteria LM.HPF (Urine sed) [#/Area] 0 /[HPF] None Seen [facility] Work Phone: Urine specific gravity measu rementon 10-05-2022 Specific gravity (U) [Rel density] 1.010 1.002-1.030 [facility] Work Phone: Urobilinogen Auto test strip Ql (U)on 10-05-2022 Urobilinogen Ql (U) Normal mg/dl Normal [facility] Work Phone: Absolute lymphocyte counton 09-29-2022 Lymphocytes Auto (Unsp spec) [#/Vol] 0.69 10*3/uL 0.83-4.51 [facility] Work Phone: Basophil percentageon 2021 Basophils/100 WBC (Bld) 0.3 % 0-1 [facility] Work Phone: Eosinophils/100 WBC (Bld) 2.1 % 0-5 [facility] Work Phone: Neutrophils (Bld) [#/Vol] 2.3 10*3/uL 2.0-7.7 [facility] Work Phone: Neutrophils/100 WBC (Bld) 69.9 % 47-70 [facility] Work Phone: WBC (Bld) [#/Vol] 3.3 10*3/uL 4.4-11.0 [facility] Work Phone: Blood erythrocytes count (nu mber/volume)on 09-29-2022 RBC (Bld) [#/Vol] 3.17 10*6/uL 4.2-5.4 [facility] Work Phone: Blood hemoglobin measurement (mass/volume)on 09-29-2022 Hemoglobin (Bld) [Mass/Vol] 8.8 g/dL 12.0-15.0 [facility] Work Phone: Blood lymphocytes/100 leukoc yteson 09-29-2022 Lymphocytes/100 WBC (Bld) 21.0 % 19-41 [facility] Work Phone: Blood monocytes/100 leukocyt eson 09-29-2022 Monocytes/100 WBC (Bld) 6.1 % 0-10 [facility] Work Phone: Blood platelet mean volumeon 09-29-2022 Platelet mean volume (Bld) [Entitic vol] 10.0 fL 6.2-12.0 [facility] Work Phone: Determination of erythrocyte mean corpuscular volume (MCV)on 09-29-2022 MCV (RBC) [Entitic vol] 97.2 fL 81-99 [facility] Work Phone: Hematocrit Auto (Bld) [Volum e fraction]on 09-29-2022 Hematocrit (Bld) [Volume fraction] 30.8 % 37-47 [facility] Work Phone: Laboratory - Hematology and Cell countson 09-29-2022 Erythrocyte distribution width (RBC) [Entitic vol] 49.7 fL 35.1-43.9 [facility] Work Phone: Erythrocyte distribution width (RBC) [Ratio] 14.0 % 11.6-14.6 [facility] Work Phone: Immature granulocytes/100 WBC (Bld) 0.600 % 0.0-0.9 [facility] Work Phone: Comment on above: IG% - Immature Granu locytes (promyelocytes, myelocytes and metamyelocytes) > 1% indicates that a LEFT SHIFT is Present. MCH (RBC) [Entitic mass] 27.8 pg 27.0-32.0 [facility] Work Phone: [phone] Nucleated RBC/100 WBC (Bld) [Ratio] 0.9 % 0-5 [facility] Work Phone: [phone] MCHC Auto (RBC) [Mass/Vol]on 09-29-2022 MCHC (RBC) [Mass/Vol] 28.6 g/dL 32-36 [facility] Work Phone: Platelets bldon 09-29-2022 Platelets (Bld) [#/Vol] 83 10*3/uL 150-450 [facility] Work Phone: Basophil percentageon 2021 Basophil percentage 5-10 SEEN /hpf 0-5 [facility] Work Phone: Bilirubin Test strip Ql (U)o n 09-08-2022 Bilirubin Ql (U) Negative Negative [facility] Work Phone: Ketones Test strip Ql (U)on 09-08-2022 Ketones Ql (U) Negative Negative [facility] Work Phone: Mucus LM Ql (Urine sed)on Mucus Ql (Urine sed) 1+ /hpf [facility] Work Phone: Nitrite Test strip Ql (U)on 09-08-2022 Nitrite Ql (U) Positive Negative [facility] Work Phone: Protein Test strip Ql (U)on 09-08-2022 Protein Ql (U) Negative Negative [facility] Work Phone: Squamous epithelial cells de tection in urine sediment by light microscopyon 09-08-2022 Epithelial cells.squamous LM Ql (Urine sed) 0-5 SEEN /hpf 5-10 [facility] Work Phone: Urine blood detectionon 08-15 RBC Ql (U) 10 /ul Negative [facility] Work Phone: RBC Ql (U) 0-5 SEEN /hpf 0-5 [facility] Work Phone: Urine clarityon 09-08-2022 Clarity (U) Sl. Cloudy Clear [facility] Work Phone: Urine color determinationon 09-08-2022 Color (U) Yellow Yellow [facility] Work Phone: Urine glucose detectionon Glucose Ql (U) Normal mg/dl Normal [facility] Work Phone: Urine leukocyte esterase det ection by dipstickon 09-08-2022 Leukocyte esterase Test strip Ql (U) 500 /ul Negative [facility] Work Phone: Urine pHon 09-08-2022 pH (U) 6.5 [pH] 5.0 - 8.0 [facility] Work Phone: Urine sediment bacteria coun t by microscopy (number/high power field)on 09-08-2022 Bacteria LM.HPF (Urine sed) [#/Area] 2 /[HPF] None Seen [facility] Work Phone: Urine specific gravity measu rementon 09-08-2022 Specific gravity (U) [Rel density] 1.010 1.002-1.030 [facility] Work Phone: Urobilinogen Auto test strip Ql (U)on 09-08-2022 Urobilinogen Ql (U) Normal mg/dl Normal [facility] Work Phone: Absolute lymphocyte counton 09-01-2022 Lymphocytes Auto (Unsp spec) [#/Vol] 0.68 10*3/uL 0.83-4.51 [facility] Work Phone: Basophil percentageon 2021 Basophils/100 WBC (Bld) 0.3 % 0-1 [facility] Work Phone: Bilirubin [Mass/Vol] 0.50 mg/dL 0.20-1.00 [facility] Work Phone: [phone] Comment on above: For patients on eltr ombopag therapy, use of Dimension [place] TBIL is not recommended. Chloride [Moles/Vol] 106 mmol/L 98-107 [facility] Work Phone: Eosinophils/100 WBC (Bld) 1.5 % 0-5 [facility] Work Phone: [phone] Glucose [Mass/Vol] 86 mg/dL 74-106 [facility] Work Phone: Neutrophils (Bld) [#/Vol] 2.4 10*3/uL 2.0-7.7 [facility] Work Phone: Neutrophils/100 WBC (Bld) 71.9 % 47-70 [facility] Work Phone: [phone] Potassium [Moles/Vol] 3.9 mmol/L 3.5-5.1 [facility] Work Phone: Protein [Mass/Vol] 6.4 g/dL 6.4-8.2 [facility] Work Phone: Sodium [Moles/Vol] 147 mmol/L 136-145 [facility] Work Phone: WBC (Bld) [#/Vol] 3.4 10*3/uL 4.4-11.0 [facility] Work Phone: Blood erythrocytes count (nu mber/volume)on 09-01-2022 RBC (Bld) [#/Vol] 2.97 10*6/uL 4.2-5.4 [facility]: Blood hemoglobin measurement (mass/volume)on 09-01-2022 Hemoglobin (Bld) [Mass/Vol] 8.6 g/dL 12.0-15.0 [facility] Work Phone: Blood lymphocytes/100 leukoc yteson 09-01-2022 Lymphocytes/100 WBC (Bld) 20.3 % 19-41 [facility] Work Phone: Blood monocytes/100 leukocyt eson 09-01-2022 Monocytes/100 WBC (Bld) 5.7 % 0-10 [facility] Work Phone: Blood platelet adequacy dete ction by light microscopyon 09-01-2022 Platelets LM Ql (Bld) MOD DEC ADEQ [facility] Work Phone: Blood platelet mean volumeon 09-01-2022 Platelet mean volume (Bld) [Entitic vol] 9.3 fL 6.2-12.0 [facility] Work Phone: Determination of erythrocyte mean corpuscular volume (MCV)on 09-01-2022 MCV (RBC) [Entitic vol] 97.6 fL 81-99 [facility] Work Phone: Hematocrit Auto (Bld) [Volum e fraction]on 09-01-2022 Hematocrit (Bld) [Volume fraction] 29.0 % 37-47 [facility] Work Phone: Laboratory - Chemistry and C hemistry - challengeon 09-01-2022 ALP [Catalytic activity/Vol] 65 U/L 45-117 [facility] Work Phone: ALT [Catalytic activity/Vol] 19 U/L 13-56 [facility] Work Phone: CO2 [Moles/Vol] 40.0 mmol/L 21.0-32.0 [facility] Work Phone: Globulin (S) [Mass/Vol] 3.4 g/dL 2.2-4.2 [facility] Work Phone: Urea nitrogen/Creatinine [Mass ratio] 21.1 mg/mg 10-20 [facility] Work Phone: Laboratory - Hematology and Cell countson 09-01-2022 Erythrocyte distribution width (RBC) [Entitic vol] 49.0 fL 35.1-43.9 [facility] Work Phone: Erythrocyte distribution width (RBC) [Ratio] 13.7 % 11.6-14.6 [facility] Work Phone: Immature granulocytes/100 WBC (Bld) 0.300 % 0.0-0.9 [facility] Work Phone: Comment on above: IG% - Immature Granu locytes (promyelocytes, myelocytes and metamyelocytes) > 1% indicates that a LEFT SHIFT is Present. MCH (RBC) [Entitic mass] 29.0 pg 27.0-32.0 [facility] Work Phone: Nucleated RBC/100 WBC (Bld) [Ratio] 0 % 0-5 [facility] Work Phone: MCHC Auto (RBC) [Mass/Vol]on 09-01-2022 MCHC (RBC) [Mass/Vol] 29.7 g/dL 32-36 [facility] Work Phone: No Panel Informationon 09-01 Estimated GFR (MDRD) Amer 112 mL/min >60 [facility] Work Phone: Comment on above: GFR Calc Estimated GFR (MDRD) Non-Af Amer 93 mL/min >60 [facility] Work Phone: Comment on above: Non- GFR Calc Thyroid Stimulating Hormone (TSH) 2.06 uIU/mL 0.358-3.74 [facility] Work Phone: Platelets bldon 09-01-2022 Platelets (Bld) [#/Vol] 99 10*3/uL 150-450 [facility] Work Phone: RBC morphologyon 09-01-2022 RBC morphology finding Nom (Bld) NORM C+C NORMAL NORM C&C [facility] Work Phone: Serum or plasma albumin celina urement (mass/volume)on 09-01-2022 Albumin [Mass/Vol] 3.0 g/dL 3.2-5.0 [facility] Work Phone: Serum or plasma albumin/glob ulin mass ratioon 09-01-2022 Albumin/Globulin [Mass ratio] 0.9 {ratio} 0.9-2.4 [facility] Work Phone: Serum or plasma calcium celina urement (mass/volume)on 09-01-2022 Calcium [Mass/Vol] 8.8 mg/dL 8.5-10.1 [facility] Work Phone: Serum or plasma creatinine m easurement (mass/volume)on 09-01-2022 Creatinine [Mass/Vol] 0.66 mg/dL 0.55-1.02 [facility] Work Phone: Comment on above: The validity of the calculated GFR & GFRAA in patients over 70 years has not been determined. Clinical correlation is essential. Serum or plasma urea nitroge n measurement (mass/volume)on 09-01-2022 Urea nitrogen [Mass/Vol] 14 mg/dL 7-18 [facility] Work Phone: Thin prep Papanicolaou smear with manual screeningon 09-01-2022 Thin prep Papanicolaou smear with manual screening 21 U/L 15-37 [facility] Work Phone: Thin prep Papanicolaou smear with manual screening 1 5-15 [facility] Work Phone: Absolute lymphocyte counton 08-26-2022 Lymphocytes Auto (Unsp spec) [#/Vol] 0.68 10*3/uL 0.83-4.51 [facility] Work Phone: Basophil percentageon 2021 Basophils/100 WBC (Bld) 0.2 % 0-1 [facility] Work Phone: Eosinophils/100 WBC (Bld) 1.2 % 0-5 [facility] Work Phone: Neutrophils (Bld) [#/Vol] 3.0 10*3/uL 2.0-7.7 [facility] Work Phone: Neutrophils/100 WBC (Bld) 74.7 % 47-70 [facility] Work Phone: WBC (Bld) [#/Vol] 4.0 10*3/uL 4.4-11.0 [facility] Work Phone: Blood erythrocytes count (nu mber/volume)on 08-26-2022 RBC (Bld) [#/Vol] 2.88 10*6/uL 4.2-5.4 [facility] Work Phone: [phone] Blood hemoglobin measurement (mass/volume)on 08-26-2022 Hemoglobin (Bld) [Mass/Vol] 8.5 g/dL 12.0-15.0 [facility] Work Phone: Blood lymphocytes/100 leukoc yteson 08-26-2022 Lymphocytes/100 WBC (Bld) 17.0 % 19-41 [facility] Work Phone: Blood monocytes/100 leukocyt eson 08-26-2022 Monocytes/100 WBC (Bld) 6.7 % 0-10 [facility] Work Phone: Blood platelet mean volumeon 08-26-2022 Platelet mean volume (Bld) [Entitic vol] 9.3 fL 6.2-12.0 [facility] Work Phone: Determination of erythrocyte mean corpuscular volume (MCV)on 08-26-2022 MCV (RBC) [Entitic vol] 101.0 fL 81-99 [facility] Work Phone: [phone] Hematocrit Auto (Bld) [Volum e fraction]on 08-26-2022 Hematocrit (Bld) [Volume fraction] 29.1 % 37-47 [facility] Work Phone: Laboratory - Hematology and Cell countson 08-26-2022 Erythrocyte distribution width (RBC) [Entitic vol] 50.9 fL 35.1-43.9 [facility] Work Phone: Erythrocyte distribution width (RBC) [Ratio] 13.8 % 11.6-14.6 [facility] Work Phone: [phone] Immature granulocytes/100 WBC (Bld) 0.200 % 0.0-0.9 [facility] Work Phone: Comment on above: IG% - Immature Granu locytes (promyelocytes, myelocytes and metamyelocytes) > 1% indicates that a LEFT SHIFT is Present. MCH (RBC) [Entitic mass] 29.5 pg 27.0-32.0 [facility] Work Phone: [phone] Nucleated RBC/100 WBC (Bld) [Ratio] 0 % 0-5 [facility] Work Phone: [phone] MCHC Auto (RBC) [Mass/Vol]on 08-26-2022 MCHC (RBC) [Mass/Vol] 29.2 g/dL 32-36 [facility] Work Phone: Platelets bldon 08-26-2022 Platelets (Bld) [#/Vol] 105 10*3/uL 150-450 [facility] Work Phone: Basophil percentageon 2021 Chloride [Moles/Vol] 99 mmol/L 98-107 [facility] Work Phone: Cholesterol [Mass/Vol] 149 mg/dL <200 [facility] Work Phone: Comment on above: <200 mg/dL Desirable 200-240 mg/dL Borderline >240 mg/dL High Risk Glucose [Mass/Vol] 148 mg/dL 74-106 [facility] Work Phone: Comment on above: Fasting Glucose resu lt greater than or equal to 126 mg/dL suggests DIABETES MELLITUS per A.D.A. criteria. Potassium [Moles/Vol] 4.2 mmol/L 3.5-5.1 [facility] Work Phone: Sodium [Moles/Vol] 141 mmol/L 136-145 [facility] Work Phone: Triglyceride [Mass/Vol] 188 mg/dL <199 [facility] Work Phone: Comment on above: The drugs N-Acetylcy steine and Metamizole may falsely depress this assay.Serum Triglycerides Reference Interval Normal <150 mg/dL Borderline high 150 - 199 mg/dL High 200 - 499 mg/dL Very High > or = 500 mg/dL WBC (Bld) [#/Vol] 4.8 10*3/uL 4.4-11.0 [facility] Work Phone: Blood erythrocytes count (nu mber/volume)on 08-02-2022 RBC (Bld) [#/Vol] 2.91 10*6/uL 4.2-5.4 [facility] Work Phone: Blood hemoglobin measurement (mass/volume)on 08-02-2022 Hemoglobin (Bld) [Mass/Vol] 8.6 g/dL 12.0-15.0 [facility] Work Phone: Blood platelet mean volumeon 08-02-2022 Platelet mean volume (Bld) [Entitic vol] 9.1 fL 6.2-12.0 [facility] Work Phone: Determination of erythrocyte mean corpuscular volume (MCV)on 08-02-2022 MCV (RBC) [Entitic vol] 102.4 fL 81-99 [facility] Work Phone: Hematocrit Auto (Bld) [Volum e fraction]on 08-02-2022 Hematocrit (Bld) [Volume fraction] 29.8 % 37-47 [facility] Work Phone: Iron measurement (mass/mass) on 08-02-2022 Iron (Unsp spec) [Mass/Mass] 43 ug/dL 50-170 [facility] Work Phone: Laboratory - Chemistry and C hemistry - challengeon 08-02-2022 Albumin [Mass/Vol] 3.3 g/dL 2.9-4.4 [facility] Work Phone: CO2 [Moles/Vol] 39.0 mmol/L 21.0-32.0 [facility] Work Phone: Cobalamin (Vitamin B12) [Mass/Vol] 350 pg/mL 211-911 [facility] Work Phone: Urea nitrogen/Creatinine [Mass ratio] 26.8 mg/mg 10-20 [facility] Work Phone: Laboratory - Hematology and Cell countson 08-02-2022 Erythrocyte distribution width (RBC) [Entitic vol] 52.6 fL 35.1-43.9 [facility] Work Phone: Erythrocyte distribution width (RBC) [Ratio] 14.2 % 11.6-14.6 [facility] Work Phone: MCH (RBC) [Entitic mass] 29.6 pg 27.0-32.0 [facility] Work Phone: MCHC Auto (RBC) [Mass/Vol]on 08-02-2022 MCHC (RBC) [Mass/Vol] 28.9 g/dL 32-36 [facility] Work Phone: No Panel Informationon 08-02 Addendum Document Comment . [facility] Work Phone: Comment on above: The SPE pattern appe ars unremarkable. Evidence ofmonoclonal protein is not apparent.Performed at: [address] [id number] Director: Mark Woo PhD, Phone: [phone] Qqiri-9-Mqdqvwpyt 0.3 g/dL 0.0-0.4 [facility] Work Phone: Euwad-4-Unuzviqfl 0.9 g/dL 0.4-1.0 [facility] Work Phone: Estimated GFR (MDRD) Amer 104 mL/min >60 [facility] Work Phone: Comment on above: GFR Calc Estimated GFR (MDRD) Non-Af Amer 86 mL/min >60 [facility] Work Phone: Comment on above: Non- GFR Calc Gamma Globulins 0.9 g/dL 0.4-1.8 [facility] Work Phone: Thyroid Stimulating Hormone (TSH) 1.91 uIU/mL 0.358-3.74 [facility] Work Phone: Total Iron Binding Capacity 268 ug/dL 250-450 [facility] Work Phone: Platelets bldon 08-02-2022 Platelets (Bld) [#/Vol] 120 10*3/uL 150-450 [facility] Work Phone: Protein Fractions Elph [Inte rp]on 08-02-2022 Protein Fractions [Interp] Comment . [facility] Work Phone: Comment on above: Protein electrophore sis scan will follow via computer,mail, or planner/scheduler delivery. Serum albumin to globulin ra amairani by protein electrophoresison 08-02-2022 Albumin/Globulin Elph [Mass ratio] 1.0 0.7-1.7 [facility] Work Phone: Serum globulin measurement ( mass/volume)on 08-02-2022 Globulin (S) [Mass/Vol] 3.2 g/dL 2.2-3.9 [facility] Work Phone: Serum or plasma beta globuli n measurement by electrophoresis (mass/volume)on 08-02-2022 Beta globulin Elph [Mass/Vol] 1.0 g/dL 0.7-1.3 [facility] Work Phone: Serum or plasma calcium celina urement (mass/volume)on 08-02-2022 Calcium [Mass/Vol] 9.0 mg/dL 8.5-10.1 [facility] Work Phone: Serum or plasma cholesterol in HDL measurement (mass/volume)on 08-02-2022 Cholesterol in HDL [Mass/Vol] 53 mg/dL >40 [facility] Work Phone: Comment on above: The drugs N-Acetylcy steine and Metamizole may falsely depress this assay. Reference Range HDL <40 mg/dL Low HDL Cholesterol HDL >or= 60 mg/dL High HDL Cholesterol Serum or plasma cholesterol in VLDL measurement (mass/volume)on 08-02-2022 Cholesterol in VLDL [Mass/Vol] 38 mg/dL 5-40 [facility] Work Phone: Serum or plasma creatinine m easurement (mass/volume)on 08-02-2022 Creatinine [Mass/Vol] 0.71 mg/dL 0.55-1.02 [facility] Work Phone: Comment on above: The validity of the calculated GFR & GFRAA in patients over 70 years has not been determined. Clinical correlation is essential. Serum or plasma iron saturat ion measurement (mass fraction)on 08-02-2022 Iron saturation [Mass fraction] 16.0 % 15.0-55.0 [facility] Work Phone: Serum or plasma low density lipoprotein (LDL) cholesterol measurement (mass/volume)on 08-02-2022 Cholesterol in LDL [Mass/Vol] 58 mg/dL 0-130 [facility] Work Phone: Serum or plasma urea nitroge n measurement (mass/volume)on 08-02-2022 Urea nitrogen [Mass/Vol] 19 mg/dL 7-18 [facility] Work Phone: Thin prep Papanicolaou smear with manual screeningon 08-02-2022 Thin prep Papanicolaou smear with manual screening 3 5-15 [facility] Work Phone: Thin prep Papanicolaou smear with manual screening See comment [facility] Work Phone: Comment on above: Result: Not Observed Total protein bloodon 2021 Protein [Mass/Vol] 6.5 g/dL 6.0-8.5 [facility] Work Phone: Whole blood hemoglobin A1c/t otal hemoglobin ratio (mass fraction)on 08-02-2022 HbA1c (Bld) [Mass fraction] 5.7 % 3.8-5.6 [facility] Work Phone: Comment on above: Normal < 5.7 % Predi abetic 5.7 - 6.4 % Diabetic >or= 6.5 % Please note range changes. LABORATORYOrdered By: Chelsy Kay on 07-27-2022 Blood Glucose Testing Reason Routine (07/27/22 9:16 AM) [facility] Work Phone: Glucose [Mass/Vol] 177 mg/dL Invalid Interpretation Code 82 - 115 mg/dL [facility] Work Phone: LABORATORYOrdered By: Caitie Roman on [...] Comment on above: Result Comment: Note s [id number] FLUBV RNA ISA+probe Ql (Resp) Negative 8 (07/27/22 9:01 AM) Invalid Interpretation Code Negative Auto Viro/Sero SS Comment on above: Result Comment: [place] [id number] Hospitalized Yes (07/27/22 9:01 AM) Invalid Interpretation [...] Glucose Testing Reason Routine (07/26/22 10:22 PM) [facility] Work Phone: Glucose [Mass/Vol] 176 mg/dL Invalid Interpretation Code 82 - 115 mg/dL [facility] Work Phone: Blood Glucose Testing Reason Routine (07/26/22 5:08 PM) [facility] Work Phone: Glucose [Mass/Vol] 232 mg/dL Invalid Interpretation Code 82 - 115 mg/dL [facility] Work Phone: LABORATORYOrdered By: Marcelina Freeman on 07-25-2022 Blood Glucose Interventions Administered agent to decrease blood sugar (07/25/22 4:57 PM) [facility] Work Phone: Blood Glucose Interventions Administered agent to decrease blood sugar (07/25/22 12:59 PM) [facility] Work Phone: LABORATORYOrdered By: Luana Bliss on 07-24-2022 Blood Glucose Interventions Administered agent to decrease blood sugar (07/24/22 1:00 PM) [facility] Work Phone: LABORATORYOrdered By: Poli Torres on [...] Ertapenem TATO [Susc] >100,000 cfu/ml Escherichia coli [facility] Work Phone: Ertapenem TATO [Susc]on 07-12 Escherichia coli Escherichia coli [facility] Work Phone: LABORATORYOrdered By: Dana Lucero [...] Invalid Interpretation Code 82 - 115 mg/dL [facility] Work Phone: LABORATORYOrdered By: Triston Nicholson [...] S CNCOon 11-30-2021 CNCO Letter Text Normal [facility] LABORATORYOrdered By: Dori Frances on 09-15-2021 [...] Former smoker Tobacco Use Screening; Status:Complete; Done: [id number] Perform:Not Applicable;Ordered; For:SocHx: Former smoker; Ordered By:Jenniffer [...] mixing and drinking quickly. This product is bupc-hda-gkhfpzx. Additionally take MiraLAX as needed for constipation. [...] ultrasound of the liver History of Present [id number]-[id number]-lub female spoken to over telephone referred for [...] History of Colonoscopy APR. 2013- DONE [place]- NORM[place] History of Esophagogastroduodenoscop y APPROX- 2013- [place]- NORMAL History of Knee arthroscopy History of [...] identified Cx Nom (U) Presumptive E. coli [facility] Work Phone: Bacteria identified Cx Nom (U) Positive [facility] Work Phone: Vital Signs Date Time Vital Sign Value Performing Clinician Facility 10-31-2023 11:16-0500 Body height 165.1 cm Elida Rafaume [employer] Work Phone: [facility] 10-31-2023 11:16-0500 Body mass index (BMI) [Ratio] 26.79 kg/m2 Elida Blume [employer] Work Phone: [facility] 10-31-2023 11:16-0500 Body weight 73.03 kg Elida Blume [employer] Work Phone: [facility] 10-31-2023 11:16-0500 Diastolic blood pressure 61 mm[Hg] Elida Blume [employer] Work Phone: [facility] 10-31-2023 11:16-0500 Heart rate 84 /min Elida Blume [employer] Work Phone: [facility] 10-31-2023 11:16-0500 SaO2% (BldA) [Mass fraction] 97 % Elida Blume [employer] Work Phone: [facility] 10-31-2023 11:16-0500 Systolic blood pressure 94 mm[Hg] Elida Blume [employer] Work Phone: [facility] 10-17-2023 11:20-0500 [...] 97.9 [degF] Velvet Jerez DO Work Phone: [facility] 09-28-2023 09:24-0500 Diastolic blood pressure 70 mm[Hg] Velvet Landon-yler DO Work Phone: [facility] 09-28-2023 09:24-0500 Heart rate 91 /min Velvet Landon-yler DO Work Phone: [facility] 09-28-2023 09:24-0500 Respiratory rate 16 /min Velvet Landon-Seyler DO Work Phone: [facility] 09-28-2023 09:24-0500 SaO2% (BldA) [Mass fraction] 99 % Velvet Landon-Seyler DO Work Phone: [facility] 09-28-2023 09:24-0500 Systolic blood pressure 111 mm[Hg] Velvet Landon-Seyler DO Work Phone: [facility] 09-19-2023 16:37-0500 Body temperature 37.0 Velvet Landon-Seyler DO Work Phone: [facility] 09-19-2023 16:37-0500 SaO2% (BldA) [Mass fraction] 99 % Velvet Landon-Seyler DO Work Phone: [facility] 09-19-2023 14:04-0500 Body temperature 37.0 degrees Celsius [facility] Comment on above: Order Comment: While on baseline/ home l evel of oxygen Result Comment: NOTE : Patient Results are Not Corrected for Temperature Performed By: #### 6 00-7 #### BEVERLEY Poe ([id number]) [facility] ([facility] [place] [address] [place] [address] 09-19-2023 14:04-0500 SaO2% (BldA) [Mass fraction] 99 % [facility] Comment on above: Order Comment: While on baseline/ home l evel of oxygen Performed By: #### 6 00-7 #### BEVERLEY JU Poe ([id number]) [facility] ([facility] [place]) [address] [place] [address] 09-15-2023 18:44-0400 Body height 165.1 cm Velvet Jerez DO Work Phone: [facility] 09-15-2023 18:44-0400 Body mass index (BMI) [Ratio] 27.46 kg/m2 Velvet Jerez DO Work Phone: [facility] 09-15-2023 18:44-0400 Body weight 74.84 kg Velvet Jerez DO Work Phone: [facility] 09-15-2023 16:54-0400 Diastolic blood pressure 60 mm[Hg] Dr. Jonathan Dillard Sr. Work Phone: [facility] 09-15-2023 16:54-0400 Heart rate 88 /min Dr. Jonathan Dillard Sr. Work Phone: [facility] 09-15-2023 16:54-0400 Inhaled oxygen flow rate 3 L/min Dr. Jonathan Dillard Sr. Work Phone: [facility] 09-15-2023 16:54-0400 Respiratory rate 18 /min Dr. Jonathan Dillard Sr. Work Phone: [facility] 09-15-2023 16:54-0400 SaO2% (BldA) [Mass fraction] 100 % Dr. Jonathan Dillard Sr. Work Phone: [facility] 09-15-2023 16:54-0400 Systolic blood pressure 115 mm[Hg] Dr. Jonathan Dillard Sr. Work Phone: [facility] 09-15-2023 16:30-0400 Body temperature 97.8 [degF] Dr. Jonathan Dillard Sr. Work Phone: [facility] 09-14-2023 22:45-0400 Body height 165.[address] Jonathan Dillard Sr. Work Phone: [facility] 09-14-2023 22:45-0400 Body mass index (BMI) [Ratio] 29 kg/m2 Dr. Jonathan Dillard Sr. Work Phone: [facility] 09-14-2023 22:45-0400 Body weight 79.[address] Jonathan Dillard Sr. Work Phone: [facility] 09-08-2023 10:18-0400 Body mass index (BMI) [Ratio] 27.6 kg/m2 Dr. Jonathan Dillard Sr. Work Phone: [facility] 09-08-2023 10:18-0400 Body temperature 97.7 [degF] Dr. Jnoathan Dillard Sr. Work Phone: [facility] 09-08-2023 10:18-0400 Body weight 75.[address] Jonathan Dillard Sr. Work Phone: [facility] 09-08-2023 10:18-0400 Diastolic blood pressure 55 mm[Hg] Dr. Jonathan Dillard Sr. Work Phone: [facility] 09-08-2023 10:18-0400 Heart rate 97 /min Dr. Jonathan Dillard Sr. Work Phone: [facility] 09-08-2023 10:18-0400 Inhaled oxygen flow rate 1 L/min Dr. Jonathan Dillard Sr. Work Phone: [facility] 09-08-2023 10:18-0400 Respiratory rate 18 /min Dr. Jonathan Dillard Sr. Work Phone: [facility] 09-08-2023 10:18-0400 SaO2% (BldA) [Mass fraction] 95 % Dr. Jonathan Dillard Sr. Work Phone: [facility] 09-08-2023 10:18-0400 Systolic blood pressure 99 mm[Hg] Dr. Jonathan Dillard Sr. Work Phone: [facility] 08-15-2023 11:54-0400 Diastolic Blood Pressure Non-Invasive [address] JEREZ MD [facility] 08-15-2023 11:54-0400 Heart rate 91 /min DR MARK JEREZ MD [facility] 08-15-2023 11:54-0400 Respiratory rate 23 /min DR MARK JEREZ MD [facility] 08-15-2023 11:54-0400 Systolic Blood Pressure Non-Invasive [address] MARK JEREZ MD [facility] 08-15-2023 11:41-0400 Diastolic Blood Pressure Non-Invasive [address] MARK JEREZ MD [facility] 08-15-2023 11:41-0400 Heart rate 98 /min DR MARK JEREZ MD [facility] 08-15-2023 11:41-0400 Respiratory rate 19 /min DR MARK JEREZ MD [facility] 08-15-2023 11:41-0400 Systolic Blood Pressure Non-Invasive [address] MARK JEREZ MD [facility] 08-15-2023 11:25-0400 Body temperature 97.52 [degF] DR MARK JEREZ MD [facility] 08-15-2023 11:25-0400 Diastolic Blood Pressure Non-Invasive [address] MARK JEREZ MD [facility] 08-15-2023 11:25-0400 Heart rate 97 /min DR MARK JEREZ MD [facility] 08-15-2023 11:25-0400 Respiratory rate 24 /min DR MARK JEREZ MD [facility] 08-15-2023 11:25-0400 Systolic Blood Pressure Non-Invasive [address] MARK JEREZ MD [facility] 08-15-2023 11:15-0400 Respiratory Rate - Anes 25 br/min DR MARK JEREZ MD [facility] 08-15-2023 11:10-0400 Respiratory Rate - Anes 26 br/min DR MARK JEREZ MD [facility] 08-15-2023 11:05-0400 Respiratory Rate - Anes 9 br/min DR MARK JEREZ MD [facility] 08-15-2023 10:290400 Body height [address] MARK JEREZ MD [facility] 08-15-2023 10:29-0400 Body weight [address] MARK JEREZ MD [facility] 08-15-2023 10:290400 Body weight 34.89 kg/m2 DR MARK JEREZ MD [facility] 08-15-2023 10:190400 Body height [address] MARK JEREZ MD [facility] 08-15-2023 10:190400 Body temperature 98.06 [degF] DR MARK JEREZ MD [facility] 08-15-2023 10:190400 Body weight [address] MARK JEREZ MD [facility] 08-15-2023 10:19-0400 Heart rate 87 /min DR MARK JEREZ MD [facility] 08-10-2023 03:47-0400 Diastolic blood pressure 62 mm[Hg] [facility]-10[facility] 03:47-0400 Heart rate 89 /min [facility] 03:47-0400 Respiratory rate 18 /min [facility]-10-[facility]23 03:47-0400 SaO2% (BldA) [Mass fraction] 95 % Jonathan [facility] [place] 08-10-2023 03:47-0400 Systolic blood pressure 108 mm[Hg] Jonathan [facility] [place] 08-09-2023 22:56-0400 Body height 165.1 cm Jonathan [facility] [place] 08-09-2023 22:56-0400 Body mass index (BMI) [Ratio] 29.3 kg/m2 Jonathan [facility] [place] 08-09-2023 22:56-0400 Body temperature 98.9 [degF] Jonathan [facility] [place] 08-09-2023 22:56-0400 Body weight 80.1 kg Jonathan [facility] [place] 08-09-2023 22:56-0400 Inhaled oxygen flow rate 2 L/min MD Castillo [facility] [place] 07-14-2023 19:07-0400 Diastolic blood pressure 43 mm[Hg] PRESSURIZER-Andrea Carlisle PRESSURIZER Work Phone: [facility] 07-14-2023 19:07-0400 Heart rate 92 /min PRESSURIZER-Andrea Carlisle PRESSURIZER Work Phone: [facility] 07-14-2023 19:07-0400 Respiratory rate 17 /min PRESSURIZER-Andrea Carlisle PRESSURIZER Work Phone: [facility] 07-14-2023 19:07-0400 SaO2% (BldA) [Mass fraction] 98 % PRESSURIZER-C Barber Carlisle PRESSURIZER Work Phone: [facility] 07-14-2023 19:07-0400 Systolic blood pressure 104 mm[Hg] PRESSURIZER-C Barber Carlisle PRESSURIZER Work Phone: [facility] 07-14-2023 17:25-0400 Inhaled oxygen flow rate 1.5 L/min PRESSURIZER-C Barber Carlisle PRESSURIZER Work Phone: [facility] 07-14-2023 15:23-0400 Body mass index (BMI) [Ratio] 29.3 kg/m2 PRESSURIZER-C Barber Carlisle PRESSURIZER Work Phone: [facility] 07-14-2023 15:23-0400 Body weight 80 kg PRESSURIZER-C Barber Carlisle PRESSURIZER Work Phone: [facility] 07-14-2023 15:15-0400 Body height 165.1 cm PRESSURIZER-C Barber Carlisle PRESSURIZER Work Phone: [facility] 07-14-2023 15:15-0400 Body temperature 97.4 [degF] PRESSURIZER-C Barber Carlisle PRESSURIZER Work Phone: [facility] 05-04-2023 14:31-0400 Body height 165.1 cm PRESSURIZER-C Barber Carlisle PRESSURIZER Work Phone: [facility] 05-04-2023 14:31-0400 Body mass index (BMI) [Ratio] 30.1 kg/m2 PRESSURIZER-C Barber Carlisle PRESSURIZER Work Phone: [facility] 05-04-2023 14:31-0400 Body temperature 98.4 [degF] PRESSURIZER-C Barber Carlisle PRESSURIZER Work Phone: [facility] 05-04-2023 14:31-0400 Body weight 82.1 kg PRESSURIZER-C Barber Carlisle PRESSURIZER Work Phone: [facility] 05-04-2023 14:31-0400 Diastolic blood pressure 63 mm[Hg] PRESSURIZER-C Barber Carlisle PRESSURIZER Work Phone: [facility] 05-04-2023 14:31-0400 Heart rate 78 /min PRESSURIZER-C Barber Carlisle PRESSURIZER Work Phone: [facility] 05-04-2023 14:31-0400 Inhaled oxygen flow rate 1 L/min PRESSURIZER-C Barber Carlisle PRESSURIZER Work Phone: [facility] 05-04-2023 14:31-0400 Respiratory rate 15 /min PRESSURIZER-C Barber Carlisle PRESSURIZER Work Phone: [facility] 05-04-2023 14:31-0400 SaO2% (BldA) [Mass fraction] 96 % PRESSURIZER-C Barber Carlisle PRESSURIZER Work Phone: [facility] 05-04-2023 14:31-0400 Systolic blood pressure 103 mm[Hg] PRESSURIZER-C Barber Carlisle PRESSURIZER Work Phone: [facility] 04-19-2023 22:11-0400 Diastolic blood pressure 67 mm[Hg] PRESSURIZER-C Barber Carlisle PRESSURIZER Work Phone: [facility] 04-19-2023 22:11-0400 Respiratory rate 17 /min PRESSURIZER-C Barber Carlisle PRESSURIZER Work Phone: [facility] 04-19-2023 22:11-0400 SaO2% (BldA) [Mass fraction] 100 % PRESSURIZER-C Barber Carlisle PRESSURIZER Work Phone: [facility] 04-19-2023 22:11-0400 Systolic blood pressure 121 mm[Hg] PRESSURIZER-C Barber Carlisle PRESSURIZER Work Phone: [facility] 04-19-2023 20:00-0400 Body temperature 97.5 [degF] PRESSURIZER-C Barber Carlisle PRESSURIZER Work Phone: [facility] 04-19-2023 20:00-0400 Heart rate 88 /min PRESSURIZER-C Barber Carlisle PRESSURIZER Work Phone: [facility] 04-19-2023 20:00-0400 Inhaled oxygen flow rate 2 L/min PRESSURIZER-C Barber Carlisle PRESSURIZER Work Phone: [facility] 04-19-2023 16:41-0400 Body height 165.1 cm PRESSURIZER-C Barber Carlisle PRESSURIZER Work Phone: [facility] 04-19-2023 16:41-0400 Body mass index (BMI) [Ratio] 31.8 kg/m2 PRESSURIZER-C Barber Carlisle PRESSURIZER Work Phone: [facility] 04-19-2023 16:41-0400 Body weight 86.9 kg PRESSURIZER-C Barber Carlisle PRESSURIZER Work Phone: [facility] 04-04-2023 14:11-0400 Body temperature 97.4 [degF] PRESSURIZER-C Barber Carlisle PRESSURIZER Work Phone: [facility] 04-04-2023 14:11-0400 Diastolic blood pressure 66 mm[Hg] PRESSURIZER-C Barber Carlisle PRESSURIZER Work Phone: [facility] 04-04-2023 14:11-0400 Heart rate 76 /min PRESSURIZER-C Barber Carlisle PRESSURIZER Work Phone: [facility] 04-04-2023 14:11-0400 Respiratory rate 18 /min PRESSURIZER-C Barber Carlisle PRESSURIZER Work Phone: [facility] 04-04-2023 14:11-0400 SaO2% (BldA) [Mass fraction] 97 % PRESSURIZER-C Barber Carlisle PRESSURIZER Work Phone: [facility] 04-04-2023 14:11-0400 Systolic blood pressure 124 mm[Hg] PRESSURIZER-C Barber Carlisle PRESSURIZER Work Phone: [facility] 03-23-2023 14:35-0400 Body height 165.1 cm PRESSURIZER-C Barber Carlisle PRESSURIZER Work Phone: [facility] 03-23-2023 14:35-0400 Body temperature 98.2 [degF] PRESSURIZER-C Barber Carlisle PRESSURIZER Work Phone: [facility] 03-23-2023 14:35-0400 Diastolic blood pressure 65 mm[Hg] PRESSURIZER-C Barber Carlisle PRESSURIZER Work Phone: [facility] 03-23-2023 14:35-0400 Heart rate 80 /min PRESSURIZER-C Barber Solisson PRESSURIZER Work Phone: [facility] 03-23-2023 14:35-0400 Respiratory rate 16 /min PRESSURIZER-C Barber Solisson PRESSURIZER Work Phone: [facility] 03-23-2023 14:35-0400 SaO2% (BldA) [Mass fraction] 99 % PRESSURIZER-C Barber Carlisle PRESSURIZER Work Phone: [facility] 03-23-2023 14:35-0400 Systolic blood pressure 100 mm[Hg] PRESSURIZER-C Barber Solisson PRESSURIZER Work Phone: [facility] 03-09-2023 15:29-0400 Body temperature 98.2 [degF] PRESSURIZER-C Barber Solisson PRESSURIZER Work Phone: [facility] 03-09-2023 15:29-0400 Diastolic blood pressure 63 mm[Hg] PRESSURIZER-C Barber Carlisle PRESSURIZER Work Phone: [facility] 03-09-2023 15:29-0400 Heart rate 89 /min PRESSURIZER-C Barber Solisson PRESSURIZER Work Phone: [facility] 03-09-2023 15:29-0400 SaO2% (BldA) [Mass fraction] 96 % PRESSURIZER-C Barber Solisson PRESSURIZER Work Phone: [facility] 03-09-2023 15:29-0400 Systolic blood pressure 117 mm[Hg] PRESSURIZER-C Barber Solisson PRESSURIZER Work Phone: [facility] 03-09-2023 15:26-0400 Body height 165.1 cm PRESSURIZER-C Barber Solisson PRESSURIZER Work Phone: [facility] 02-25-2023 13:27-0400 Heart rate 89 /min PRESSURIZER-C Barber Carlisle PRESSURIZER Work Phone: [facility] 02-25-2023 13:27-0400 Respiratory rate 20 /min PRESSURIZER-C Barber Carlisle PRESSURIZER Work Phone: [facility] 02-25-2023 11:49-0400 Body temperature 97.3 [degF] PRESSURIZER-C Barber Carlisle PRESSURIZER Work Phone: [facility] 02-25-2023 11:49-0400 Diastolic blood pressure 44 mm[Hg] PRESSURIZER-C Barber Carlisle PRESSURIZER Work Phone: [facility] 02-25-2023 11:49-0400 Inhaled oxygen flow rate 1 L/min PRESSURIZER-C Barber Carlisle PRESSURIZER Work Phone: [facility] 02-25-2023 11:49-0400 SaO2% (BldA) [Mass fraction] 98 % PRESSURIZER-C Barber Carlisle PRESSURIZER Work Phone: [facility] 02-25-2023 11:49-0400 Systolic blood pressure 103 mm[Hg] PRESSURIZER-C Barber Carlisle PRESSURIZER Work Phone: [facility] 02-25-2023 06:00-0400 Body mass index (BMI) [Ratio] 30.1 kg/m2 PRESSURIZER-C Barber Carlisle PRESSURIZER Work Phone: [facility] 02-25-2023 06:00-0400 Body weight 82.2 kg PRESSURIZER-C Barber Carlisle PRESSURIZER Work Phone: [facility] 02-21-2023 13:46-0400 Body height 165.1 cm PRESSURIZER-C Barber Carlisle PRESSURIZER Work Phone: [facility] 02-21-2023 07:00-0400 Inhaled oxygen concentration 50 % PRESSURIZER-C Barber Carlisle PRESSURIZER Work Phone: [facility] 02-18-2023 00:46-0400 Body temperature 96 [degF] PRESSURIZER-C Barber Carlisle PRESSURIZER Work Phone: [facility] 02-18-2023 00:46-0400 Diastolic blood pressure 65 mm[Hg] PRESSURIZER-C Barber Carlisle PRESSURIZER Work Phone: [facility] 02-18-2023 00:46-0400 Heart rate 70 /min PRESSURIZER-C Barber Carlisle PRESSURIZER Work Phone: [facility] 02-18-2023 00:46-0400 Respiratory rate 18 /min PRESSURIZER-C Barber Carlisle PRESSURIZER Work Phone: [facility] 02-18-2023 00:46-0400 SaO2% (BldA) [Mass fraction] 100 % PRESSURIZER-C Barber Carlisle PRESSURIZER Work Phone: [facility] 02-18-2023 00:46-0400 Systolic blood pressure 103 mm[Hg] PRESSURIZER-C Barber Carlisle PRESSURIZER Work Phone: [facility] 02-17-2023 22:25-0400 Inhaled oxygen concentration 100 % PRESSURIZER-C Barber Carlisle PRESSURIZER Work Phone: [facility] 02-17-2023 22:17-0400 Body height 165.1 cm PRESSURIZER-C Barber Carlisle PRESSURIZER Work Phone: [facility] 02-17-2023 22:17-0400 Body mass index (BMI) [Ratio] 33.8 kg/m2 PRESSURIZER-C Barber Carlisle PRESSURIZER Work Phone: [facility] 02-17-2023 22:17-0400 Body weight 92.3 kg PRESSURIZER-C Barber Carlisle PRESSURIZER Work Phone: [facility] 01-11-2023 13:49-0500 Body mass index (BMI) [Ratio] 32.5 kg/m2 PRESSURIZER-C Barber Carlisle PRESSURIZER Work Phone: [facility] 01-11-2023 13:49-0500 Body temperature 98.5 [degF] PRESSURIZER-C Barber Carlisle PRESSURIZER Work Phone: [facility] 01-11-2023 13:49-0500 Body weight 88.45 kg PRESSURIZER-C Barber Carlisle PRESSURIZER Work Phone: [facility] 01-11-2023 13:49-0500 Diastolic blood pressure 71 mm[Hg] PRESSURIZER-C Barber Carlisle PRESSURIZER Work Phone: [facility] 01-11-2023 13:49-0500 Heart rate 82 /min PRESSURIZER-C Barber Carlisle PRESSURIZER Work Phone: [facility] 01-11-2023 13:49-0500 Respiratory rate 17 /min PRESSURIZER-C Barber Carlisle PRESSURIZER Work Phone: [facility] 01-11-2023 13:49-0500 SaO2% (BldA) [Mass fraction] 98 % PRESSURIZER-C Barber Carlisle PRESSURIZER Work Phone: [facility] 01-11-2023 13:49-0500 Systolic blood pressure 110 mm[Hg] PRESSURIZER-C Barber Carlisle PRESSURIZER Work Phone: [facility] 11-11-2022 10:49-0500 Body height 165 cm PRESSURIZER-C Barber Carlisle PRESSURIZER Work Phone: [facility] Work Phone: 11-11-2022 10:35-0500 Body mass index (BMI) [Ratio] 31.9 kg/m2 PRESSURIZER-C Barber Carlisle PRESSURIZER Work Phone: [facility] 11-11-2022 10:35-0500 Body temperature 98 [degF] PRESSURIZER-C Barber Carlisle PRESSURIZER Work Phone: [facility] 11-11-2022 10:35-0500 Body weight 87.08 kg PRESSURIZER-C Barber Carlisle PRESSURIZER Work Phone: [facility] 11-11-2022 10:35-0500 Diastolic blood pressure 70 mm[Hg] PRESSURIZER-C Barber Carlisle PRESSURIZER Work Phone: [facility] 11-11-2022 10:35-0500 Heart rate 82 /min PRESSURIZER-C Barber Carlisle PRESSURIZER Work Phone: [facility] 11-11-2022 10:35-0500 Respiratory rate 18 /min PRESSURIZER-C Barber Carlisle PRESSURIZER Work Phone: [facility] 11-11-2022 10:35-0500 SaO2% (BldA) [Mass fraction] 91 % PRESSURIZER-C Barber Lorethan PRESSURIZER Work Phone: [facility] 11-11-2022 10:35-0500 Systolic blood pressure 115 mm[Hg] PRESSURIZER-C Barber Carlisle PRESSURIZER Work Phone: [facility] 07-27-2022 09:29-0400 Heart rate 93 /min DR TRACE MATTHEWS MD [address] 07-27-2022 09:13-0400 Body temperature 96.8 [degF] DR TRACE MATTHEWS MD [address] [place] [id number] 07-27-2022 09:13-0400 Diastolic Blood Pressure NBP [address] TRACE MATTHEWS MD [address] [place] [id number] 07-27-2022 09:13-0400 Heart rate 99 /min DR TRACE MATTHEWS MD [address] 07-27-2022 09:13-0400 Mean blood pressure 83 mm[Hg] DR TRACE MATTHEWS MD [address] [place] [id number] 07-27-2022 09:13-0400 Reason For Taking VItal Signs DR TRACE MATTHEWS MD [address] [place] [id number] 07-27-2022 09:13-0400 Systolic Blood Pressure NBP [address] TRACE MATTHEWS MD [address] [place] [id number] 07-27-2022 04:38-0400 Body temperature 97.7 [degF] DR TRACE MATTHEWS MD [address] [place] [id number] 07-27-2022 04:38-0400 Diastolic Blood Pressure NBP [address] TRACE MATTHEWS MD [address] 07-27-2022 04:38-0400 Heart rate 79 /min DR TRACE MATTHEWS MD [address] [place] [address] 07-27-2022 04:38-0400 Mean blood pressure 75 mm[Hg] DR TRACE MATTHEWS MD [address] [place] [id number] 07-27-2022 04:38-0400 Reason For Taking VItal Signs DR TRACE MATTHEWS MD [address] [place] [id number] 07-27-2022 04:38-0400 Respiratory rate 16 /min DR TRACE MATTHESW MD [address] [place] [id number] 07-27-2022 04:38-0400 Systolic Blood Pressure NBP [address] TRACE MATTHEWS MD [address] [place] [id number] 07-26-2022 21:08-0400 Body temperature 98.24 [degF] DR TRACE MATTHEWS MD [address] [place] [id number] 07-26-2022 21:08-0400 Diastolic Blood Pressure NBP [address] TRACE MATTHEWS MD [address] [place] [id number] 07-26-2022 21:08-0400 Heart rate 113 /min DR TRACE MATTHEWS MD [address] [place] [id number] 07-26-2022 21:08-0400 Mean blood pressure 74 mm[Hg] DR TRACE MATTHEWS MD [address] [place] [id number] 07-26-2022 21:08-0400 Reason For Taking VItal Signs DR TRACE MATTHEWS MD [address] [place] [id number] 07-26-2022 21:08-0400 Respiratory rate 18 /min DR TRACE MATTHEWS MD [address] [place] [id number] 07-26-2022 21:08-0400 Systolic Blood Pressure NBP [address] TRACE MATTHEWS MD [address] [place] [id number] 07-26-2022 16:00-0400 Respiratory rate 16 /min DR TRACE MATTHEWS MD [address] [place] [id number] 07-26-2022 09:18-0400 Heart rate 100 /min DR TRACE MATTHEWS MD [address] [place] [id number] 07-26-2022 00:35-0400 Diastolic blood pressure 52 mm[Hg] DR TRACE MATTHEWS MD [address] [place] [id number] 07-26-2022 00:35-0400 Mean blood pressure 71 mm[Hg] DR TRACE MATTHEWS MD [address] [place] [id number] 07-26-2022 00:35-0400 Systolic blood pressure 108 mm[Hg] DR TRACE MATTHEWS MD [address] [place] [id number] 07-25-2022 07:55-0400 Heart rate 86 /min DR TRACE MATTHEWS MD [address] [place] [id number] 07-24-2022 23:40-0400 Diastolic blood pressure 57 mm[Hg] DR TRACE MATTHEWS MD [address] [place] [id number] 07-24-2022 23:40-0400 Mean blood pressure 81 mm[Hg] DR TRACE MATTHEWS MD [address] [place] [id number] 07-24-2022 23:40-0400 Systolic blood pressure 128 mm[Hg] DR TRACE MATTHEWS MD [address] [place] [id number] 07-24-2022 20:26-0400 Diastolic blood pressure 54 mm[Hg] DR TRACE MATTHEWS MD [address] [place] [id number] 07-24-2022 20:26-0400 Mean blood pressure 77 mm[Hg] DR TRACE MATTHEWS MD [address] [place] [id number] 07-24-2022 20:26-0400 Systolic blood pressure 124 mm[Hg] DR TRACE MATTHEWS MD [address] [place] [id number] 07-21-2022 13:01-0400 Body temperature 96.62 [degF] DR TRACE MATTHEWS MD [address] [place] [id number] 07-15-2022 11:49-0400 Diastolic blood pressure 45 mm[Hg] DR TRACE MATTHEWS MD [address] [place] [id number] 07-15-2022 11:49-0400 Mean blood pressure 59 mm[Hg] DR TRACE MATTHEWS MD [address] [place] [address] 07-15-2022 11:49-0400 Systolic blood pressure 106 mm[Hg] DR TRACE MATTHEWS MD [address] [place] [id number] 07-15-2022 09:23-0400 Diastolic blood pressure 80 mm[Hg] DR TRACE MATTHEWS MD [address] [place] [id number] 07-15-2022 09:23-0400 Mean blood pressure 111 mm[Hg] DR TRACE MATTHEWS MD [address] [place] [id number] 07-15-2022 09:23-0400 Systolic blood pressure 157 mm[Hg] DR TRACE MATTHEWS MD [address] [place] [id number] 07-15-2022 08:53-0400 Diastolic blood pressure 85 mm[Hg] DR TRACE MATTHEWS MD [address] [place] [id number] 07-15-2022 08:53-0400 Mean blood pressure 113 mm[Hg] DR TRACE MATTHEWS MD [address] [place] [id number] 07-15-2022 08:53-0400 Systolic blood pressure 153 mm[Hg] DR TRACE MATTHEWS MD [address] [place] [id number] 07-15-2022 04:10-0400 SaO2% (BldA) [Mass fraction] 97.5 % DR TRACE MATTHEWS MD [facility] 07-13-2022 19:08-0400 SaO2% (BldA) [Mass fraction] 98.9 % DR TRACE MATTHEWS MD [facility] 07-13-2022 17:39-0400 SaO2% (BldA) [Mass fraction] 99.1 % DR TRACE MATTHEWS MD [facility] 07-13-2022 16:25-0400 Body temperature 97.84 [degF] DR TRACE MATTHEWS MD [address] [place] [id number] 07-13-2022 16:20-0400 Body temperature 97.77 [degF] DR TRACE MATTHEWS MD [facility] 07-13-2022 16:15-0400 Body temperature 97.7 [degF] DR TRACE MATTHEWS MD [facility] 07-13-2022 11:30-0400 Body height [address] TRACE MATTHEWS MD [address] [place] [address] 07-13-2022 11:30-0400 Body weight 98.[address] TRACE MATTHEWS MD [facility] 07-13-2022 11:30-0400 Body weight 36.25 kg/m2 DR TRACE MATTHEWS MD [facility] 07-11-2022 17:05-0400 Heart rate 97 /min DR TRACE MATTHEWS MD [facility] 07-11-2022 14:31-0400 Heart rate 91 /min DR TRACE MATTHEWS MD [facility] 07-11-2022 11:20-0400 Body weight 98.[address] TRACE MATTHEWS MD [facility] 07-11-2022 11:20-0400 Heart rate 92 /min DR TRACE MATTHEWS MD [facility] 07-11-2022 10:00-0400 Diastolic blood pressure 76 mm[Hg] MARIANA RAMOS MD [facility] 07-11-2022 10:00-0400 Heart rate 89 /min MARIANA RAMOS MD [facility] 07-11-2022 10:00-0400 Mean blood pressure 97 mm[Hg] MARIANA RAMOS MD [facility] 07-11-2022 10:00-0400 Systolic blood pressure 139 mm[Hg] MARIANA RAMOS MD [facility] 07-11-2022 08:30-0400 Diastolic blood pressure 74 mm[Hg] MARIANA RAMOS MD [facility] 07-11-2022 08:30-0400 Heart rate 92 /min MARIANA RAMOS MD [facility] 07-11-2022 08:30-0400 Respiratory rate 16 /min MARIANA RAMOS MD [facility] 07-11-2022 08:30-0400 Systolic blood pressure 147 mm[Hg] MARIANA RAMOS MD [facility] 07-11-2022 07:34-0400 Body temperature 98.42 [degF] MARIANA RAMOS MD [facility] 07-11-2022 07:34-0400 Diastolic blood pressure 86 mm[Hg] MARIANA RAMOS MD [facility] 07-11-2022 07:34-0400 Heart rate 92 /min MARIANA RAMOS MD [facility] 07-11-2022 07:34-0400 Mean blood pressure 110 mm[Hg] MARIANA RAMOS MD [facility] 07-11-2022 07:34-0400 Respiratory rate 18 /min MARIANA RAMOS MD [facility] 07-11-2022 07:34-0400 Systolic blood pressure 158 mm[Hg] MARIANA RAMOS MD [facility] 12-04-2021 13:19-0500 Diastolic blood pressure 79 mm[Hg] LEONA RIOS MD [facility] 12-04-2021 13:19-0500 Heart rate 101 /min LEONA RIOS MD [facility] 12-04-2021 13:19-0500 Reason For Taking VItal Signs LEONA RIOS MD [facility] 12-04-2021 13:19-0500 Respiratory rate 18 /min LEONA RIOS MD [facility] 12-04-2021 13:19-0500 Systolic blood pressure 140 mm[Hg] LEONA RIOS MD [facility] 12-04-2021 11:12-0500 Diastolic blood pressure 76 mm[Hg] LEONA RIOS MD [facility] 12-04-2021 11:12-0500 Heart rate 106 /min LEONA RIOS MD [facility] 12-04-2021 11:12-0500 Reason For Taking VItal Signs LEONA RIOS MD [facility] 12-04-2021 11:12-0500 Respiratory rate 18 /min LEONA RIOS MD [facility] 12-04-2021 11:12-0500 Systolic blood pressure 139 mm[Hg] LEONA RIOS MD [facility] 12-04-2021 08:20-0500 Body temperature 98.24 [degF] LEONA RIOS MD [facility] 12-04-2021 08:20-0500 Diastolic blood pressure 79 mm[Hg] ELONA RIOS MD [facility] 12-04-2021 08:20-0500 Heart rate 98 /min LEONA ROIS MD [facility] 12-04-2021 08:20-0500 Respiratory rate 16 /min LEONA RIOS MD [facility] 12-04-2021 08:20-0500 Systolic blood pressure 145 mm[Hg] LEONA RIOS MD [facility] 09-15-2021 20:35-0400 Diastolic blood pressure 80 mm[Hg] JANKI ADAMS MD [facility] 09-15-2021 20:35-0400 Heart rate 100 /min JANKI ADAMS MD [facility] 09-15-2021 20:35-0400 Mean blood pressure 103 mm[Hg] JANKI ADAMS MD [facility] 09-15-2021 20:35-0400 Respiratory rate 22 /min JANKI ADAMS MD [facility] 09-15-2021 20:35-0400 Systolic blood pressure 148 mm[Hg] JANKI ADAMS MD [facility] 09-15-2021 19:24-0400 SaO2% (BldA) [Mass fraction] 99 % JANKI ADAMS MD [facility] 09-15-2021 18:26-0400 Body temperature 99.14 [degF] JANKI ADAMS MD [facility] 09-15-2021 18:26-0400 Body weight 96 kg JANKI ADAMS MD [facility] 09-15-2021 18:26-0400 Diastolic blood pressure 88 mm[Hg] JANKI ADAMS MD [facility] 09-15-2021 18:26-0400 Heart rate 107 /min JANKI ADAMS MD [facility] 09-15-2021 18:26-0400 Respiratory rate 20 /min JANKI ADAMS MD [facility] 09-15-2021 18:26-0400 Systolic blood pressure 156 mm[Hg] JANKI ADAMS MD [facility] Encounters Encounter Date Encounter Type Care Provider Facility Start: 09-26-2025 End: 09-26-2025 ambulatory [facility] Facility:[facility] Start: 09-25-2025 ambulatory Jonathan Gilma Jewell ty:[facility] Start: 09-18-2025 ambulatory Jonathan Gilma Hinds Facili ty:[facility] Start: 09-11-2025 ambulatory Jonathan Gilma Hinds Facili ty:[facility] Start: 09-10-2025 End: 09-10-2025 Emergency department patient visit Royce Vigil Facility:[facility] Start: 09-09-2025 ambulatory Jonathan Gilma ELMORE Facili ty:[facility] Start: 09-06-2025 ambulatory Jonathan Gilma ELMORE Facili ty:[facility] Start: 09-04-2025 ambulatory Jonathan Gilma ELMORE Facili ty:[facility] Start: 11-01-2023 Patient encounter status Marlon little Dionna CHUSERVICE SHOP FOREMAN Work Phone: [facility] Work Phone: Start: 10-31-2023 End: 10-31-2023 [facility] Start: 10-31-2023 Evaluation and manag ement of inpatient VARSHA SOTELO [facility] Start: 10-31-2023 End: 10-31-2023 Office outpatient visit 25 minutes Elida CHUSERVICE SHOP FOREMAN Work Phone: [facility] [place] Comment on above: Preop cardiovascular exam (Primary Dx); Chronic systolic heart failure (CMS/HCC) Start: 10-31-2023 End: 10-31-2023 Patient encounter status Elida L Dionna JO-SERVICE SHOP FOREMAN Work Phone: [facility] Work Phone: Start: 10-31-2023 End: 10-31-2023 ambulatory ELIDA VILLAREAL [facility] Start: 10-28-2023 End: 11-02-2023 ambulatory RITU HARRELL [facility] Start: 10-28-2023 End: 10-28-2023 ambulatory BARBER MORALES [facility] Start: 10-28-2023 End: 10-28-2023 Encounter for other preprocedural examination BARBER MORALES [facility] Start: 10-28-2023 End: 10-28-2023 Admission to establishment [facility] Work Phone: Start: 10-28-2023 End: 10-28-2023 Subsequent hospital visit by physician Marnie [id number] Holter/Ecg Resource [facility] [place] Comment on above: Encounter for preadm ission testing Start: 10-20-2023 End: 10-20-2023 ambulatory BARBER MORALES [facility] Start: 10-17-2023 End: 10-17-2023 [facility] Start: 10-17-2023 End: 10-17-2023 Office outpatient visit 40 minutes Varsha Sotelo MD Work Phone: [facility] [place] Comment on above: Colovaginal fistula (Primary Dx) Start: 10-11-2023 End: 10-11-[address] Jonathan Dillard Sr. Work Phone: [facility] Work Phone: Start: 10-11-2023 End: 10-11-[address] Jonathan Dillard Sr. Work Phone: [facility] Ultrasound Work Phone: Start: 10-11-[address] Jonathan acevedo Sr. Work Phone: [facility] Start: 10-04-[address] Jonathan acevedo Sr. Work Phone: [facility] Start: 10-03-[address] Jonathan acevedo Sr. Work Phone: [facility] Start: 09-15-2023 End: 09-28-2023 Encounter for preprocedural cardiovascular examination VARSHA SOTELO [facility] Start: 09-15-2023 End: 09-28-2023 Evaluation and management of inpatient Velvet Jerez DO Work Phone: [facility] Start: 09-15-2023 End: 09-28-2023 Patient encounter status Velvet Jerez DO Work Phone: [facility] Start: 09-15-2023 Non-patient / Non-visit Dr. Kalen Quintero. Work Phone: [facility] Start: 09-15-2023 Non-patient / Non-visit Dr. Kalen Hinds Work Phone: [facility] Work Phone: Start: 09-14-2023 End: 09-15-2023 Emergency department patient visit Dr. Jonathan Dillard Sr. Work Phone: [facility] Work Phone: Start: 09-13-2023 End: 09-13-[address] Jonathan Dillard SrChe Work Phone: [facility] Work Phone: Start: 09-13-2023 End: 09-13-[address] Jonathan Dillard Sr. Work Phone: [facility] Start: 09-13-[address] Jonathan acevedo Sr. Work Phone: [facility] Start: 09-09-2023 End: 09-09-[address] Jonathan Dillard Sr. Work Phone: [facility]-Laboratory, Specimen Work Phone: Start: 09-08-[address] Jonathan Dillard Sr. Work Phone: [facility] Oncology Start: 09-08-2023 End: 09-08-[address] Jonathan Dillard Sr. Work Phone: [facility] Work Phone: Start: 08-31-2023 End: 08-31-2023 ambulatory [facility] Work Phone: Start: 08-31-2023 End: 08-31-2023 Departed Referred [facility] Start: 08-31-2023 Registered Referred MD Jonathan ELMORE [facility] Start: 08-29-2023 End: 08-30-[address] OSEI WOODWARD MD Facility:A Start: 08-29-2023 End: 08-29-[address] OSEI WOODWARD MD [facility] Start: 08-17-2023 End: 08-18-[address] MARK JEREZ MD Facility:B Start: 08-17-2023 End: 08-17-[address] MARK JEREZ MD [facility] Start: 08-16-2023 End: 08-16-2023 ambulatory MD Jonathan Dillard [facility] Work Phone: Start: 08-16-2023 End: 08-16-2023 Departed Referred MD Jonathan ELMORE [facility] Start: 08-15-[address] MARK LOPEZ MD Facility:B Start: 08-15-2023 End: 08-16-[address] MARK JEREZ MD Facility:B Start: 08-15-2023 End: 08-15-[address] MARK JEREZ MD [facility] Start: 08-09-2023 End: 08-10-2023 Emergency department patient visit MD Jonathan ELMORE [facility] Work Phone: Start: 07-14-2023 End: 07-14-2023 Emergency department patient visit PRESSURIZER-C Barber Carlisle PRESSURIZER Work Phone: [facility] Work Phone: Start: 06-28-2023 End: 06-28-2023 ambulatory MD Jonathan Dillard [facility] Work Phone: Start: 06-28-2023 End: 06-28-2023 Departed Referred MD Jonathan ELMORE [facility] Start: 06-28-2023 Registered Referred PRESSURIZER-C Flora Carlisle PRESSURIZER Work Phone: [facility] Start: 06-13-2023 End: 06-13-2023 ambulatory PRESSURIZER-C Barber Carlisle PRESSURIZER Work Phone: [facility] Work Phone: Start: 06-13-2023 End: 06-13-2023 Departed Referred PRESSURIZER-C Barber Carlisle PRESSURIZER Work Phone: [facility] Start: 05-04-2023 End: 05-04-2023 Patient encounter procedure PRESSURIZER-C Barber Carlisle PRESSURIZER Work Phone: [facility] Work Phone: Start: 05-04-2023 Registered Recurring PRESSURIZER-C Conor Carlisle PRESSURIZER Work Phone: [facility] Oncology Start: 04-19-2023 End: 04-19-2023 Emergency department patient visit PRESSURIZER-C Barber Carlisle PRESSURIZER Work Phone: [facility] Start: 04-12-2023 End: 04-12-2023 ambulatory PRESSURIZER-C Barber Carlisle PRESSURIZER Work Phone: [facility] Work Phone: Start: 04-12-2023 End: 04-12-2023 Departed Referred PRESSURIZER-C Barber Carlisle PRESSURIZER Work Phone: [facility] Start: 04-04-2023 End: 04-04-2023 Patient encounter procedure PRESSURIZER-C Barber Carlisle PRESSURIZER Work Phone: [facility]Labor[facility], Specimen Start: 04-04-2023 End: 04-04-2023 Patient encounter procedure PRESSURIZER-C Barber Carlisle PRESSURIZER Work Phone: [facility] Start: 03-28-2023 End: 03-28-2023 ambulatory PRESSURIZER-C Barber Carlisle PRESSURIZER Work Phone: [facility] Work Phone: Start: 03-28-2023 End: 03-28-2023 Departed Referred PRESSURIZER-C Barber Carlisle PRESSURIZER Work Phone: [facility] Start: 03-28-2023 Registered Referred PRESSURIZER-C Flora Carlisle PRESSURIZER Work Phone: [facility] Start: 03-23-2023 End: 03-23-2023 Patient encounter procedure PRESSURIZER-C Barber Carlisle PRESSURIZER Work Phone: [facility] Care Start: 03-18-2023 End: 03-18-2023 ambulatory PRESSURIZER-C Barber Carlisle PRESSURIZER Work Phone: [facility] Work Phone: Start: 03-18-2023 End: 03-18-2023 Patient encounter procedure PRESSURIZER-C Barber Carlisle PRESSURIZER Work Phone: [facility] Start: 03-09-2023 Registered Recurring PRESSURIZER-C Conor Carlisle PRESSURIZER Work Phone: [facility] Oncology Start: 03-09-2023 End: 03-09-2023 Patient encounter procedure PRESSURIZER-C Barber Carlisle PRESSURIZER Work Phone: [facility] Start: 03-08-2023 Registered Referred PRESSURIZER-C Flora Carlisle PRESSURIZER Work Phone: [facility] Start: 03-04-2023 Registered Referred PRESSURIZER-C Flora Carlisle PRESSURIZER Work Phone: [facility] Start: 02-28-2023 End: 02-28-2023 ambulatory PRESSURIZER-C Barber Carlisle PRESSURIZER Work Phone: [facility] Work Phone: Start: 02-28-2023 End: 02-28-2023 Departed Referred PRESSURIZER-C Barber Carlisle PRESSURIZER Work Phone: [facility] Start: 02-25-2023 Non-patient / Non-visit PRESSURIZER-C Deepika Carlisle PRESSURIZER Work Phone: [facility] Start: 02-24-2023 Non-patient / Non-visit PRESSURIZER-C L asif Solisson PRESSURIZER Work Phone: [facility] Start: 02-23-2023 Non-patient / Non-visit PRESSURIZER-C L asif Solisson PRESSURIZER Work Phone: [facility] Start: 02-23-2023 Non-patient / Non-visit PRESSURIZER-C L asif Solisson PRESSURIZER Work Phone: [facility] Start: 02-22-2023 Non-patient / Non-visit PRESSURIZER-C L asif Solisson PRESSURIZER Work Phone: [facility] Start: 02-22-2023 Non-patient / Non-visit PRESSURIZER-C L indalivia Lorson PRESSURIZER Work Phone: [facility] Start: 02-21-2023 Non-patient / Non-visit PRESSURIZER-C L asif Solisson PRESSURIZER Work Phone: [facility] Start: 02-21-2023 Non-patient / Non-visit PRESSURIZER-C L indalivia Solisson PRESSURIZER Work Phone: [facility] Start: 02-20-2023 Non-patient / Non-visit PRESSURIZER-C L indsey Lorson PRESSURIZER Work Phone: [facility] Start: 02-20-2023 Non-patient / Non-visit PRESSURIZER-C L indalivia Lorson PRESSURIZER Work Phone: [facility] Start: 02-20-2023 Non-patient / Non-visit PRESSURIZER-C L indsey Lorson PRESSURIZER Work Phone: [facility] Start: 02-19-2023 Non-patient / Non-visit PRESSURIZER-C L asif Solisson PRESSURIZER Work Phone: [facility] Start: 02-19-2023 Non-patient / Non-visit PRESSURIZER-C L asif Solisson PRESSURIZER Work Phone: [facility] Start: 02-18-2023 Non-patient / Non-visit PRESSURIZER-C L asif Solisson PRESSURIZER Work Phone: [facility] Start: 02-18-2023 Non-patient / Non-visit PRESSURIZER-C L asif Solisson PRESSURIZER Work Phone: [facility] Start: 02-18-2023 Non-patient / Non-visit PRESSURIZER-C L indalivia Lorson PRESSURIZER Work Phone: [facility] Start: 02-18-2023 End: 02-25-2023 Evaluation and management of inpatient PRESSURIZER-C Barber Carlisle PRESSURIZER Work Phone: [facility] Start: 02-07-2023 End: 02-07-2023 ambulatory PRESSURIZER-C Barber Carlisle PRESSURIZER Work Phone: [facility] Work Phone: Start: 02-07-2023 End: 02-07-2023 Departed Referred PRESSURIZER-C Barber Carlisle PRESSURIZER Work Phone: [facility] Start: 02-07-2023 Registered Referred PRESSURIZER-C Flora Carlisle PRESSURIZER Work Phone: [facility] Start: 01-11-2023 End: 01-11-2023 Patient encounter procedure PRESSURIZER-C Barber Carlisle PRESSURIZER Work Phone: [facility] Start: 01-11-2023 Registered Recurring PRESSURIZER-C Conor Carlisle PRESSURIZER Work Phone: [facility] Oncology Start: 11-11-2022 End: 11-11-2022 Patient encounter procedure PRESSURIZER-C Barber Carlisle PRESSURIZER Work Phone: [facility] Start: 11-01-2022 End: 11-01-2022 ambulatory PRESSURIZER-C Barber Carlisle PRESSURIZER Work Phone: [facility] Work Phone: Start: 11-01-2022 End: 11-01-2022 Departed Referred PRESSURIZER-C Barber Carlisle PRESSURIZER Work Phone: [facility] Start: 11-01-2022 Registered Referred PRESSURIZER-C Flora Carlisle PRESSURIZER Work Phone: [facility] Start: 10-26-2022 End: 10-27-2022 ambulatory TRACE MATTHEWS MD Facility:B Start: 10-26-2022 End: 10-26-[address] TRACE MATTHEWS MD [facility] Start: 10-05-2022 End: 10-05-2022 Patient encounter procedure RENETTA ASTORGA MATCHER OFFBEARER-SERVICE SHOP FOREMAN [facility] Start: 10-05-2022 End: 10-06-2022 ambulatory PRESSURIZER-C Barber Carlisle PRESSURIZER Work Phone: [facility] Work Phone: Start: 10-05-2022 End: 10-05-2022 Departed Referred PRESSURIZER-C Barber Carlisle PRESSURIZER Work Phone: [facility] Start: 10-05-2022 Registered Referred [facility] Start: 09-29-2022 End: 09-29-2022 ambulatory PRESSURIZER-C Barber Carlisle PRESSURIZER Work Phone: [facility] Work Phone: Start: 09-29-2022 End: 09-29-2022 Departed Referred PRESSURIZER-C Barber Carlisle PRESSURIZER Work Phone: [facility] Start: 09-29-2022 Registered Referred [facility] Start: 09-09-2022 End: 09-09-2022 Patient encounter procedure RENETTA ASTORGA MATCHER OFFBEARER-[facility] Start: 09-08-2022 End: 09-08-2022 ambulatory [facility] Work Phone: Start: 09-08-2022 End: 09-08-2022 Departed Referred [facility] Start: 09-08-2022 Registered Referred [facility] Start: 09-01-2022 End: 09-01-2022 ambulatory [facility] Work Phone: Start: 09-01-2022 End: 09-01-2022 Departed Referred [facility] Start: 09-01-2022 Registered Referred [facility] Start: 08-26-2022 End: 08-26-2022 ambulatory [facility] Work Phone: Start: 08-26-2022 End: 08-26-2022 Departed Referred [facility] Start: 08-12-2022 End: 08-12-[address] TRACE MATTHEWS MD [facility] Start: 08-10-2022 End: 08-10-2022 Admission to same day surgery center BARBER CARLISLE MATCHER OFFBEARER-SERVICE SHOP FOREMAN [facility] Start: 08-02-2022 Registered Referred [facility] Start: 07-14-2022 End: 07-14-2022 Admission to same day surgery center ARYAN VAZ MATCHER OFFBEARER-SERVICE SHOP FOREMAN [facility] Start: 07-11-2022 End: 07-27-2022 Evaluation and management of inpatient DR TRACE MATTHEWS MD [facility] Start: 07-11-2022 End: 07-11-2022 Emergency department patient visit MARIANA RAMOS MD [facility] Start: 12-04-2021 End: 12-04-2021 Emergency department patient visit LEONA RIOS MD [facility] Start: 09-15-2021 End: 09-15-2021 Emergency department patient visit JANKI ADAMS MD [facility] Start: 09-15-2021 End: 09-15-2021 Patient encounter procedure BARBER CARLISLE MATCHER OFFBEARER-SERVICE SHOP FOREMAN [facility] Start: 08-15-2017 Ambulatory Ellis Conrad [...] 10-31-2023 Natriuretic peptide B [Mass/volume] in Blood BARBRE CARLISLE Start: 10-28-2023 CBC W Auto Differential [...] 09-28-2023 Sars-cov-2 detection by dna/rna Nancy Treviño MATCHER OFFBEARER-[facility] Work Phone: Start: 09-28-2023 Blood count [...] 12 lds trcg only w/o i&r Fran Brnener MD Work Phone: Start: 09-27-2023 Sars-cov-2 detection by dna/rna Nancy Treviño MATCHER OFFBEARER-[facility] Work Phone: Start: 09-27-2023 CBC panel [...] MD Work Phone: Start: 09-22-2023 CASE REQUEST NETWORK PRICING CONSULTANT BARBER CARLISLE Start: 09-22-2023 Glucose [Mass/volume] in [...] 09-20-2023 Glucose [Mass/volume] in Serum or Plasma BABRER CARLISLE Start: 09-20-2023 Iaad ia hiv-1 ag [...] BARBERALIVIA CARLISLE Start: 09-17-2023 Renal function panel Fran [...] of abdomen and pelvis with intravenous contrast PRESSURIZER-C Barber Carlisle PRESSURIZER Work Phone: Start: 04-19-2023 Computed tomography of abdomen and pelvis with intravenous contrast PRESSURIZER-C Barber Irmaethan PRESSURIZER Work Phone: Start: 04-12-2023 Urine culture PRESSURIZER-C Barber Carlisle PRESSURIZER Work Phone: Start: 03-18-2023 Bilateral mammography PRESSURIZER-C Barber Carlisle PRESSURIZER Work Phone: Start: 03-18-2023 Ultrasonography of breast PRESSURIZER-C Barber Solisethan PRESSURIZER Work Phone: Start: 03-18-2023 CT of soft tissues of neck with contrast PRESSURIZER-C Barber Orestes PRESSURIZER Work Phone: Start: 02-20-2023 Plain chest X-ray PRESSURIZER-C Barber Carlisle PRESSURIZER Work Phone: Start: 02-19-2023 Plain chest X-ray PRESSURIZER-C Barber Carlisle PRESSURIZER Work Phone: Start: 02-18-2023 Ultrasonography of thorax PRESSURIZER-C Barber Carlisle PRESSURIZER Work Phone: Start: 02-18-2023 CT of chest without contrast PRESSURIZER-C Carlton Carlisle PRESSURIZER Work Phone: Start: 02-17-2023 CT of head without contrast PRESSURIZER-C Barber Carlisle PRESSURIZER Work Phone: Start: 02-17-2023 Plain chest X-ray PRESSURIZER-C Barber Carlisle PRESSURIZER Work Phone: Start: 07-13-2022 Excision of cervical intervertebral disc BARBER CARLISLE MATCHER OFFBEARER-SERVICE SHOP FOREMAN Comment on above: ACDF Appendectomy Kandi Sharma Appendectomy BARBER ORESTES MATCHER OFFBEARER-SERVICE SHOP FOREMAN Comment on above: left water taken off Arthroscopic knee operation BARBER CARLISLE MATCHER OFFBEARER-SERVICE SHOP FOREMAN Comment on above: right Arthroscopy of knee Kandi rai Bacteria identified in Blood by Culture PRESSURIZER-C Barber Orestes PRESSURIZER Work Phone: Cardiac catheter (physical object) BARBER SOLISETHAN MATCHER OFFBEARER-SERVICE SHOP FOREMAN Comment on above: years ago Cardiac catheterization Marilyn Sharma Cataract surgery Kandi Castorena er Cholecystectomy Kandi Francis r Cholecystectomy BARBER ALLA ON MATCHER OFFBEARER-SERVICE SHOP FOREMAN Clostridium difficile detection PRESSURIZER-C Barber Carlisle PRESSURIZER Work Phone: Colonoscopy Kandi Sharma Colonoscopy BARBER ORESTES MATCHER OFFBEARER-SERVICE SHOP FOREMAN Esophagogastroduodenoscopy E gerson Sharma Esophagogastroduodenoscopy Deepika CARLISLE MATCHER OFFBEARER-SERVICE SHOP FOREMAN Ligation of fallopian tube E gerson Sharma Ligation of fallopian tube Deepika CARLISLE MATCHER OFFBEARER-SERVICE SHOP FOREMAN Lumpectomy of breast Kandi dorantes Lumpectomy of breast BARBER CARLISLE MATCHER OFFBEARER-SERVICE SHOP FOREMAN Comment on above: left None (qualifier value) FLORA CARLISLE MATCHER OFFBEARER-SERVICE SHOP FOREMAN Phacoemulsification of cataract with intraocular lens implantation BARBER CARLISLE MATCHER OFFBEARER-SERVICE SHOP FOREMAN Comment on above: both eyes Urine culture Urine culture PRESSURIZER-C Barber Carlisle PRESSURIZER Work Phone: Urine culture PRESSURIZER-C Barber Solisethan PRESSURIZER Work Phone: Viral antigen assay PRESSURIZER-C Bhavna godfrey Solisethan PRESSURIZER Work Phone: Plan of Treatment Date Care Activity Detail Author Start: 10-31-2024 Creatinine measurement Creatinine Le abiodun [facility] Start: 10-31-2024 Potassium measurement Potassium Arun poe [facility] Start: 09-20-2024 Echocardiography Echocardiogram [facility] Start: 06-20-2024 Glaucoma screening [facility] Start: 12-19-2023 Hemoglobin A1c measurement [facility] Start: 11-07-2023 End: 11-01-2024 Renal function 2000 panel - Serum or Plasma Renal Function Panel Lab Routine Chronic systolic heart failure (CMS/HCC) Expected: 11/07/2023 (Approximate), Expires: 11/01/2024 [facility] Service Area Work Phone: Comment on above: Expected: 11/07/2023 (Approximate), Expires: 11/01/2024 Start: 2023 End: 2023 Admission to same day surgery center 2023 10:00 AM EST - 2023 1:35 PM [place] [place] [address] [place] [id number] [place] [id number] [address] Department [place] [address] Resection Laparoscopy Sigmoid Colon [37983 (CPT )] [facility] [place] Comment on above: Resection Laparoscop y Sigmoid Colon [47602 (CPT )] Start: 2023 End: 2023 Laparoscopy colectomy partial w/anastomosis Resection Laparoscopy Sigmoid Colon Diverticulitis 2023 10:00 AM EST Virtual [facility] Start: 2023 Subsequent hospital visit by physician 2023 8:30 AM EST Hospital [place] [facility] [place] [address] [place] [address] [place] [address] [address] Department of Surgery-Colorectal [place] [id number] [facility] [place] Start: 10-31-2023 End: 10-31-2023 Patient encounter procedure 10/31/2023 11:40 AM EST Office Visit [facility] [address] Ma[address]ik [address] [place] [id number] Elida Villareal, MATCHER OFFBEARER-SERVICE SHOP FOREMAN [address] [place] [address] [facility] Start: 10-28-2023 End: 10-28-2023 Admission to establishment 10/28/2023 8:45 AM EST Pre-Admission Testing [facility] [address] [place] [id number] [facility] Start: 10-17-2023 End: 10-17-2024 CBC W Auto Differential panel - Blood CBC and Auto Differential Lab Routine Colovaginal fistula Expected: 10/17/2023 (Approximate), Expires: 10/17/2024 [facility] Work Phone: Comment on above: Expected: 10/17/2023 (Approximate), Expires: 10/17/2024 Start: 10-17-2023 End: 10-17-2024 Comprehensive metabolic 2000 panel - Serum or Plasma Comprehensive metabolic panel Lab Routine Colovaginal fistula Expected: 10/17/2023 (Approximate), Expires: 10/17/2024 [facility] Service Area Work Phone: Comment on above: Expected: 10/17/2023 (Approximate), Expires: 10/17/2024 Start: 10-17-2023 End: 10-17-2024 Prealbumin [Mass/volume] in Serum or Plasma Prealbumin Lab Routine Colovaginal fistula Expected: 10/17/2023 (Approximate), Expires: 10/17/2024 [facility] Work Phone: Comment on above: Expected: 10/17/2023 (Approximate), Expires: 10/17/2024 Start: 10-17-2023 End: 10-17-2023 ambulatory [facility] [place] Start: 10-12-2023 End: 10-12-2023 ambulatory [facility] [place] Start: 09-15-2023 [facility] Start: 09-15-2023 Bacteria identified in Blood by Culture Blood Culture [facility] Start: 09-15-2023 Hospital admission, emergency, from emergency room, medical nature [facility] Start: 09-15-2023 End: 09-15-2023 Blood culture [facility] Start: 09-15-2023 Blood culture [facility] Start: 09-08-2023 Patient referral [facility] Work Phone: Start: 08-31-2023 Bacteria identified in Urine by Culture [facility] Start: 08-31-2023 [facility] Start: 03-23-2023 Patient referral [facility] Work Phone: Start: 02-28-2023 [facility] Start: 02-27-2023 [facility] Start: 02-26-2023 [facility] Start: 02-25-2023 Patient discharge [facility] Start: 02-23-2023 Physiotherapy of chest [facility] Start: 02-21-2023 Care planning and pr oblem solving actions [facility] Start: 02-20-2023 End: 02-21-2023 [facility] Start: 02-20-2023 [facility] Start: 02-19-2023 Referral to factory superintendent [facility] Start: 02-18-2023 Vital signs measurements [facility] Start: 02-18-2023 Consultation [facility] Start: 02-18-2023 Speech therapy assessment [facility] Start: 02-18-2023 Following clinical p athway protocol [facility] Start: 02-18-2023 Assessment of risk o f venous thromboembolism [facility] Start: 02-18-2023 Assessment using assessment scale [facility] Start: 02-18-2023 Catheterization of vein [facility] Start: 02-18-2023 Consultation [facility] Start: 02-18-2023 Elevation of head of bed [facility] Start: 02-18-2023 Inhalation therapy procedure [facility] Start: 02-18-2023 Insertion of cathete r into peripheral vein [facility] Start: 02-18-2023 Measuring intake and output [facility] Start: 02-18-2023 Mouth care [facility] Start: 02-18-2023 Notification of physician [facility] Start: 02-18-2023 Oxygen therapy [facility] Start: 02-18-2023 Patient referral to dietitian [facility] Start: 02-18-2023 Providing care accor ding to standard [facility] Start: 02-18-2023 Referral to occupati onal therapist [facility] Start: 02-18-2023 Referral to service [facility] Start: 02-18-2023 Removal of urinary catheter [facility] Start: 02-18-2023 Speech therapy assessment [facility] Start: 02-18-2023 Vital signs measurements [facility] Start: 02-18-2023 End: 02-18-2023 [facility] Start: 02-18-2023 Bacterial nucleic ac id assay [facility] Start: 02-18-2023 Streptococcus pneumo niae antigen assay [facility] Start: 02-18-2023 [facility] Start: 02-18-2023 Verification routine [facility] Start: 04-07-2023 Admission procedure [facility] Start: 02-18-2023 CT of chest without contrast Chest without Contrast [facility] Start: 02-17-2023 End: 02-17-2023 Blood culture [facility] Start: 02-17-2023 Airway suction technique [facility] Start: 02-17-2023 [facility] Start: 2009 Hepatitis B Vaccines (1 [...] identified in Blood by Culture Blood Culture [facility] Bacteria identified in Sputum by Respiratory culture [facility] End: 09-23-2023 Cardiac catheterization study [facility] Work Phone: CBC panel - Blood by Automated count [facility] Work Phone: CBC W Auto Different ial panel - Blood [facility] Work Phone: CBC W Auto Different ial panel - Blood [facility] CBC W Auto Different ial panel - Blood [facility] End: 09-28-2023 Cobalamin (Vitamin B12) [Mass/volume] in Serum or Plasma [facility] Work Phone: CT Neck W contrast IV [facility] ECG 12 lead ECG 12 lead ECG Routine Encounter for preadmission testing 11/02/2023 2:17 PM EST [facility] Work Phone: Electrocardiogram, 1 2-lead PRN ACS symptoms [facility] Work Phone: Ferritin [Mass/volum e] in Serum or Plasma [facility] Work Phone: Ferritin [Mass/volum e] in Serum or Plasma [facility] Ferritin [Mass/volum e] in Serum or Plasma [facility] Folate [Mass/volume] in Serum or Plasma [facility] Work Phone: End: 09-28-2023 Folate [Mass/volume] in Serum or Plasma [facility] Work Phone: Glucose [Mass/volume ] in Serum or Plasma [facility] Work Phone: Glucose [Mass/volume ] in Serum or Plasma [facility] Work Phone: End: 09-15-2023 Incentive spirometry Instruct [facility] Work Phone: Iron and Iron bindin g capacity panel - Serum or Plasma [facility] Work Phone: Iron and Iron bindin g capacity panel - Serum or Plasma [facility] Iron and Iron bindin g capacity panel - Serum or Plasma [facility] Lactate dehydrogenas e measurement [facility] Work Phone: Lactate dehydrogenas e measurement [facility] Lactate dehydrogenas e measurement [facility] Legionella pneumophi la Ag [Presence] in Urine [facility] Magnesium [Mass/volu me] in Serum or Plasma [facility] Magnesium [Mass/volu me] in Serum or Plasma [facility] Service Area Work Phone: Magnesium [Mass/volu me] in Serum or Plasma [facility] Work Phone: Microscopic observat ion [Identifier] in Unspecified specimen by Gram stain Gram Stain [facility] Patient Education [facility] Work Phone: Patient referral [facility] Work Phone: Renal function 1999 panel - Serum or Plasma [facility] Work Phone: Renal function 1999 panel - Serum or Plasma [facility] Work Phone: Respiratory Culture Respiratory Culture [facility] Reticulocyte count [facility] Work Phone: Reticulocyte count [facility] Vitamin B12 measurement [facility] Work Phone: Vitamin B12 measurement [facility] Immunizations Immunization Date Immunization Notes Care Provider Kemar morales 08-09-2023 influenza virus vaccine, unspecified formulation DR OSEI WOODWARD MD [facility] 08-23-2022 influenza virus vaccine, unspecified formulation DR OSEI WOODWARD MD [facility] 11-28-2021 influenza virus vaccine, unspecified formulation MARIANA RAMOS MD [facility] 11-28-2021 influenza, injectabl e, quadrivalent, preservative free Jonathan Deperro CATARINA [facility] 11-28-2021 influenza, seasonal, injectable [facility] 09-16-2021 influenza, high dose seasonal, preservative-free; Translations: [Fluad Quadrivalent PF ] LEONA RIOS MD 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 09-13-2017 influenza virus vaccine, unspecified formulation MARIANA RAMOS MD [facility] 09-19-2014 influenza virus vaccine, unspecified formulation MARIANA RAMOS MD [facility] Payers Date Payer Category Payer Self-pay [id number] 2022 Private Health Insurance [id number] 2022 Unknown [id number] 2022 Unknown [id number] 2022 Medicare [id number].[facility] 2022 Medicare [id number] 1950 Unknown [id number] 2.16.840.1.476886.3.579.2.6 1950 Unknown [id number] 2.16.840.1.236788.3.579.2.6 1949 Unknown [id number] 2.16.840.1.332064.3.579.2.6 1949 Unknown [id number] 2.16.840.1.507639.3.579.2.6 27 1949 Unknown [id number] 2.16.840.1.210688.3.579.2.6 27 1949 Unknown [id number] 2.16.840.1.191262.3.579.2.6 27 1949 Unknown [id number] 2.16.840.1.853310.3.579.2.6 27 1949 Unknown [id number] 2.16.840.1.679511.3.579.2.1 244 1949 Unknown [id number] 2.16.840.1.654691.3.579.2.1 245 1949 Unknown [id number] 2.16.840.1.712853.3.579.2.1 245 1949 Unknown [id number] 2.16.840.1.088658.3.579.2.1 245 1949 Unknown [id number] 2.16.840.1.351918.3.579.2.1 245 1949 Unknown [id number] 2.16.840.1.982645.3.579.2.1 245 1949 Unknown [id number] 2.16.840.1.805633.3.579.2.1 245 1949 Unknown [id number] 2.16.840.1.771182.3.579.2.1 245 Private Health Insurance [facility] [id number] Unknown Unknown [id number] Unknown [id number] 2.16.840.1.670899.3.579.2.4 62 Unknown [id number] 2.16.840.1.930783.3.579.2.4 62 Unknown [id number] 2.16.840.1.067092.3.579.2.4 62 Unknown [id number] 2.16.840.1.837556.3.579.2.4 62 Unknown [id number] 2.16.840.1.572502.3.579.2.4 62 Unknown [id number] 2.16.840.1.267331.3.579.2.4 62 Unknown [id number] 2.16.840.1.076404.3.579.2.4 62 Unknown [id number] 2.16.840.1.246463.3.579.2.4 62 Social History Date Type Detail Facility Start: 03-10-2020 End: 09-25-2023 Ex-smoker (finding) [facility] Start: 1950 Sex Assigned At Female A [facility] Start: 11-24-2021 End: 09-14-2023 Tobacco smoking status NHIS Unknown if ever smoked [facility] History of tobacco use Current smoker [facility] Work Phone: History of tobacco use Cigarette Smoker U [facility] Work Phone: Start: 09-25-2023 Tobacco use and [...] Phone: Start: 1950 [facility] Start: 09-06-2023 End: 10-31-2023 [...] Status Patient Identi fied Identification band, Verbal [facility] 08-15-2023 Functional Status Maintained [facility] 02-25-2023 Functional status Ambulates;Chair [facility] Work Phone: 07-27-2022 Functional Status Room check performed [facility] 07-26-2022 Functional Status Yes [facility] 07-26-2022 Functional Status Min A 1 [facility] 07-26-2022 Functional Status None [facility] 07-26-2022 Functional Status [facility] 07-26-2022 Functional Status [facility] 07-25-2022 Functional Status Ambulation in Room [facility] 07-25-2022 Functional Status [facility] [...] D evice Unable to use call device [facility] 07-16-2022 Functional Status [facility] 07-16-2022 Functional Status [facility] 07-15-2022 Functional Status [facility] 07-15-2022 Functional Status [facility] 07-13-2022 Functional Status Patient Identi fied Identification band [facility] 07-13-2022 Functional Status Sensory Deficits None A [facility] 07-11-2022 Functional Status Standard Safet y ID band on, Call device within reach, Bed in low position, Wheels locked, Upper/Half-Length side-rails up, Phone within reach, personal items within reach [facility] NEGATED: Highlighted row Functional performance Functional status health issues are not documented Disease [facility] Work Phone: Mental Status Date Assessment Result Facility 08-15-2023 Mental Status Orientation [facility] [address] [facility] 08-09-2023 Cognitive function Level Of Cons ciousness Awake;Alert;Appropriate ;Follows Commands [facility] Work Phone: 02-25-2023 Cognitive function Voice/Name [facility] Work Phone: 07-27-2022 Mental Status Oriented x 4, Follows simple commands [facility] 07-26-2022 Mental Status [facility] 07-26-2022 Mental Status [facility] 07-26-2022 Mental Status [facility] 07-11-2022 Mental Status Orientation [facility] x 4 [facility] NEGATED: Highlighted row Cognitive function [Interpretation] Cognitive status health issues are not documented Disease [facility] Work Phone: Clinical Notes 09-15-2021 to 10-31-2023 Elida Villareal APRN-SILVINO - 10/31/2023 11:40 AM ESTPatient Wendy Sotelo MD - 10/17/2023 11:40 AM Marbella Blood RN - 09/28/2023 11:30 AM EST Note Date & Type Note Facility 10-31-2023 History of Present illness Narrative Subjective Chief Complaint: 72yo patient here for cardiovascular risk stratification prior to noncardiac surgery. HPI Presented as a transfer from [facility] with left lower quadrant abdominal pain suspicious [...] Chronic Venous Insufficiency, RLE DVT, OA, GERD, ?NV, LUISA, HFrEF PSHx: Lumpectomy, Cholecystectomy, Appendectomy Presents from [facility] with nursing aid. Denies chest [...] IV Risk w/15% 30-day risk of , NV, or cardiac arrest. Order for BNP. documented [...] Continue all other medications as ordered. Call [phone] to schedule follow up with Dr. Rowell ([place]). documented in this encounter [facility] [...] 2 times a day. 09/27/23 Nancy Treviño APRN-SERVICE [employer] bisacodyl (Dulcolax) 10 mg suppository Insert 1 [...] once daily. For 7 days ending 09/20/23. ([facility] Jie Probiotic 15 BILLION per [facility] list) 09/27/23 Nancy Treviño APRN-SERVICE [employer] magnesium hydroxide (Milk of Magnesia) 400 mg/5 mL suspension Take 30 mL by mouth once daily as needed for constipation. Historical Provider, metoprolol succinate XL (Toprol-XL) 100 mg 24 hr tablet Take 1 tablet (100 mg) by mouth once daily. Do not crush or chew. Do not start before September 28, 2023. 09/28/23 Nancy Treviño APRN-SERVICE [employer] ondansetron (Zofran) 4 mg tablet Take 1 [...] 2 times a day. 09/27/23 Nancy Treviño APRN-SERVICE [employer] sennosides-docusate sodium (Zarina-Colace) 8.6-50 mg tablet Take [...] Pre Op optimization. COMPARISON: None. ACCESSION NUMBER(S): [id number] ORDERING CLINICIAN: KANG JULIAN TECHNIQUE: Using multi-detector [...] Yair Pham 09/28/2023 11:26 AM Dictation workstation: [id number] Electrocardiogram, 12-lead PRN ACS symptoms Result Date: [...] colovesical colovaginal fistula. COMPARISON: None ACCESSION NUMBER(S): [id number] ORDERING CLINICIAN: KANG JULIAN TECHNIQUE: Multiplanar MRI [...] Cristina MD. This study was interpreted at [facility] [place], [place]. MACRO: None Signed by: Clint Woods 09/25/2023 3:47 PM Dictation workstation: [id number] Transthoracic Echo (TTE) Complete Result Date: 09/20/2023 [facility], [address] [place] [address] and TRANSTHORACIC ECHOCARDIOGRAM REPORT Patient Name: POLI VALERIY Reading Physician: [id number] Kandi Roberts MD Study Date: 09/20/2023 Ordering Provider: [id number] VARSHA SOTELO MRN/PID: [id number] Fellow: Nurse: Mare Higgins Date of /Age: 11 1950 [employer] Heavy Service: Muna Clinton RDCS years Gender: F Additional Staff: Height: 165.10 cm Admit Date: 09/15/2023 Weight: 74.84 kg Admission Status: Inpatient - Routine BSA: 1.82 m2 Department Location: [facility] Non Invasive Blood Pressure: 126 /75 mmHg Study Type: TRANSTHORACIC ECHO (TTE) COMPLETE Diagnosis/ICD: Encounter for preprocedural cardiovascular examination-Z01.810 CPT Code: Echo Complete w Full Doppler-[id number] Patient History: Pertinent History: Breast cancer, HTN, [...] LA Area A2C: 21.1 cm2 [place] A4C: 5.5 cm [place] A2C: 5.6 cm AORTA MEASUREMENTS: Normal Ranges: [...] 1.0 m/s (0.6-0.9m/s) PV Max P.0 mmHg [id number] Kandi Roberts MD Electronically signed on 09/20/2023 at 4:04:20 PM Final US abdomen limited liver Result Date: 09/20/2023 Interpreted By: Steven Chacon and Ebai Jerky STUDY: US ABDOMEN LIMITED LIVER; [facility] US ABDOMINAL/PELVIC DUPLEX COMPLETE; 09/19/2023 6:30 pm INDICATION: 72 y/o F with Signs/Symptoms:Throbocytopenia workup; Signs/Symptoms:per doctor request. COMPARISON: None. ACCESSION NUMBER(S): [id number]; [id number] ORDERING CLINICIAN: KANG JULIAN TECHNIQUE: Multiple images of the right upper quadrant were obtained. Gates scale, color Doppler and spectral Doppler waveform analysis was performed. This examination was interpreted at [facility] FINDINGS: The liver measures 22.6 cm and [...] as stated. This study was interpreted at [place], [place]. MACRO: None Signed by: Steven Chacon 09/20/2023 5:44 AM Dictation workstation: [id number] Vascular US abdomen/pelvis duplex complete Result Date: 09/20/2023 Interpreted By: Steven Chacon, and Kim Sheikh STUDY: [facility]LVIC [facility]TE; 09/19/2023 6:30 pm INDICATION: 72 y/o F with Signs/Symptoms:Throbocytopenia workup; Signs/Symptoms:per doctor request. COMPARISON: None. ACCESSION NUMBER(S): [id number]; [id number] ORDERING CLINICIAN: KANG JULIAN TECHNIQUE: Multiple images of the right upper quadrant were obtained. Gates scale, color Doppler and spectral Doppler waveform analysis was performed. This examination was interpreted at [facility] FINDINGS: The liver measures 22.6 cm and [...] as stated. This study was interpreted at [place], [place]. MACRO: None Signed by: Steven Chacon 09/20/2023 5:44 AM Dictation workstation: [id number] CT head wo IV contrast Result Date: 09/19/2023 Interpreted By: Susy Canales, STUDY: CT HEAD WO IV CONTRAST; 09/19/2023 3:43 pm INDICATION: Signs/Symptoms:R/o subdural hematoma, thrombocytopenia workup (fall several weeks ago). COMPARISON: None. ACCESSION NUMBER(S): [id number] ORDERING CLINICIAN: KANG JULIAN TECHNIQUE: Axial CT [...] Susy Canales 09/19/2023 4:06 PM Dictation workstation: [id number] XR chest 1 view Result Date: 09/19/2023 Interpreted By: Delfin Menezes and [place] Lesley STUDY: XR CHEST 1 VIEW; 09/19/2023 8:46 am INDICATION: Signs/Symptoms:copd on oxygen. COMPARISON: Outside hospital CT chest 03/20/2014 ACCESSION NUMBER(S): [id number] ORDERING CLINICIAN: RIMA APPLE FINDINGS: Single AP [...] as stated. This study was interpreted at [facility], [place], [place]. MACRO: None Signed by: Delfin Menezes 09/19/2023 9:36 AM Dictation workstation: [id number] Labs: Lab Results Component Value Date BILIDIR [...] about discharge needs. Pt lives at the [facility] in [place], [place]. Pt can discharge in the next few days. Facility notified through [facility]. SW will follow and assist as needed. SYDNEY Seth. 09/23/2023 LILY spoke to Caroline ([phone]) at the [facility] about pt's return. The facility does [...] Seth. 09/26/2023 LILY spoke to Caroline from [facility] about pt's care. Pt has a cardiac scan today. ADOD is tomorr or Tuesday. Updated notes sent to pt's facility. SYDNEY Seth. 09/27/2023 Pt set for discharge today. Neg covid test (taken this morning) sent to [facility]. Transport requested for 1530. SW will [...] about discharge needs. Pt lives at the [facility] in [place], [place]. Pt can discharge in the next few days. Facility notified through [facility]. SW will follow and assist as needed. SYDNEY Seth. 09/23/2023 LILY spoke to Caroline ([phone]) at the [facility] about pt's return. The facility does [...] Seth. 09/26/2023 LILY spoke to Caroline from [facility] about pt's care. Pt has a cardiac scan today. ADOD is tomorrow or Tuesday. Updated notes sent to pt's facility. SYDNEY Seth. 09/27/2023 Pt set for discharge today. Neg covid test (taken this morning) sent to [facility]. Transport requested for 1530. SW will [...] be rescheduled for this morning. SYDNEY Seth. [facility] HEART FAILURE PROGRESS NOTE Poli Ramirez/[id number] Admit Date: 09/15/2023 Hospital Length of Stay: [...] daily as needed for constipation. [DISCONTINUED] HYDROcodone-acetaminophen (Somers) 5-325 mg tablet Take 1 tablet by mouth every 6 hours if needed (moderate to severe pain). [DISCONTINUED] L. acidophilus-L. rhamnosus (Probiotic) 15 billion cell capsule Take 1 capsule by mouth once daily. For 7 days ending 09/20/23. ([facility] Ultimate Jie Probiotic 15 BILLION per [...] about discharge needs. Pt lives at the [facility] in [place], [place]. Pt can discharge in the next few days. Facility notified through [facility]. SW will follow and assist as needed. SYDNEY Seth. 09/23/2023 LILY spoke to Caroline ([phone]) at the [facility] about pt's return. The facility does [...] Seth. 09/26/2023 LILY spoke to Caroline from [facility] about pt's care. Pt has a cardiac scan today. ADOD is tomorrow or Tuesday. Updated notes sent to pt's facility. SYDNEY Seth. 09/27/2023 Pt set for discharge today. Neg covid test (taken this morning) sent to [facility]. Transport requested for 1530. SW will let the facility know when transport is confirmed. SYDNEY Seth. 09/27/2023 Transport set for 1730 with [facility]. Care team and facility notified. SYDNEY Seth. Poli Ramirez is a 72 y.o. female on day 12 of admission presenting with Colovaginal fistula. SW briefly met with pt about discharge needs. Pt lives at the [facility] in [place], [place]. Pt can discharge in the next few days. Facility notified through [facility]. SW will follow and assist as needed. SYDNEY Seth. 09/23/2023 LILY spoke to Caroline ([phone]) at the [facility] about pt's return. The facility does [...] Seth. 09/26/2023 LILY spoke to Caroline from [facility] about pt's care. Pt has a cardiac scan today. ADOD is tomorrow or Tuesday. Updated notes sent to pt's facility. SYDNEY Seth. 09/27/2023 Pt set for discharge today. Neg covid test (taken this morning) sent to [facility]. Transport requested for 1530. 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 Additionally, would recommend [...] if further questions. ID team A pager [phone]. For new consults, contact pager [phone]. Patient staffed with ID attendant Dr Agarwal [...] of Assistance 1: Minimum assistance Outcome Measures: [facility] Basic Mobility Turning from your back to [...] RW (Progressing) Start: 09/22/23 Expected End: 10/06/23 [facility] FAILURE PROGRESS NOTE Poli Ramirez/[id number] Admit Date: 09/15/2023 Hospital Length of Stay: [...] than 70 and non-responsive or NPO HYDROcodone-acetaminophen (Somers) 5-325 mg tablet Take 1 tablet by [...] 15-20%. Similar findings on TTE report from [facility]. Currently she appears compensated. Unknown etiology currently. [...] about discharge needs. Pt lives at the [facility] in [place], [place]. Pt can discharge in the next few days. Facility notified through [facility]. SW will follow and assist as needed. SYDNEY Seth. 09/23/2023 LILY spoke to Caroline ([phone]) at the [facility] about pt's return. The facility does [...] Seth. 09/26/2023 LILY spoke to Caroline from [facility] about pt's care. Pt has a cardiac scan today. ADOD is tomorrow or Tuesday. Updated notes sent to pt's facility. SYDNEY Seth. Poli Ramirez is a 72 y.o. female on day 11 of admission presenting with Colovaginal fistula. LILY briefly met with pt about discharge needs. Pt lives at the [facility] in [place], [place]. Pt can discharge in the next few days. Facility notified through [facility]. SW will follow and assist as needed. SYDNEY Seth. 09/23/2023 LILY spoke to Caroline ([phone]) at the [facility] about pt's return. The facility does [...] appendectomy who presented as a transfer from [facility] due to left lower quadrant abdominal pain [...] DM2, who presented as a transfer from [facility] due to left lower quadrant abdominal pain [...] PO PPI : Maintain stephens for decompression; TRANSPORTATION AID ONC - likely no fistula to vagina [...] Dr. Subramanian. Rasheed Brandt MD Colorectal Surgery [facility] Pager [phone] Poli Ramirez is a 72 y.o. female [...] about discharge needs. Pt lives at the [facility] in [place], [place]. Pt can discharge in the next few days. Facility notified through [facility]. SW will follow and assist as needed. Susy Blunt [facility], GUIDE TOUR. 09/23/2023 LILY spoke to Caroline ([phone]) at the [facility] about pt's return. The facility does not accept weekend discharges so pt will discharge back to facility on 09/26/2023. Pt will also need a negative covid test, taken same day. Care team notified. SW will arrange transport for midday 09/26. SW will follow and assist. SYDNEY Seth. [facility] HEART FAILURE PROGRESS NOTE Poli Ramirez/[id number] Admit Date: 09/15/2023 Hospital Length of Stay: 7 Primary Service: Colorectal surgery INTERVAL EVENTS / PERTINENT ROS: Records reviewed from [facility]. Patient is being planned for surgery for [...] than 70 and non-responsive or NPO HYDROcodone-acetaminophen (Somers) 5-325 mg tablet Take 1 tablet by [...] Home Living: Home Living Type of Home: [facility] Care facility Home Adaptive Equipment: Wheelchair-manual, Walker rolling or standard Home Layout: One level Bathroom Shower/Tub: Walk-in shower Bathroom Toilet: Handicapped height Prior Level of Function: Prior Function Per Pt/Caregiver Report Level of Bailey: Needs assistance with ADLs, Needs assistance with [...] extension and ankle DF 4/5) Outcome Measures: [facility] Basic Mobility Turning from your back to [...] about discharge needs. Pt lives at the [facility] in [place], [place]. Pt can discharge in the next few days. Facility notified through [facility]. SW will follow and assist [...] intensity level of continued care (Return to fdc with Low intensity therapy services) OT Recommended [...] around toilet Home Living Comments: Living in fdc Prior Function: Level of Bailey: Needs assistance with ADLs, Needs assistance with [...] LUE LUE: Within Functional Limits Outcome Measures: [facility] Daily Activity Putting on and taking off [...] appendectomy who presented as a transfer from [facility] due to left lower quadrant abdominal pain [...] pancytopenia who presented as a transfer from [facility] due to left lower quadrant abdominal pain [...] (09/23) : Monitor UOP and maintain stephens Equipment Scheduler onc consulted for vaginal bleeding, appreciate recs Ucx: e.fecium, awaiting sensitivities Heme/ID: Daily labs. Continue rocephin/flagyl Ppy: Lovenox 40mg daily, SCDs Special: Okay for shower Dispo: Continue care on RNF. Patient seen by and plans discussed with staff, Dr. Sotelo. Kang Julian MD Colorectal Surgery [facility] Pager [phone] Images from the original note were not [...] appendectomy who presented as a transfer from [facility] due to left lower quadrant abdominal pain suspicious for colovesical/colovaginal fistula and diverticulitis on CT. Subjective Equipment Scheduler Onc on board for vaginal bleeding, awaiting [...] pancytopenia who presented as a transfer from [facility] due to left lower quadrant abdominal pain [...] today : Monitor UOP and maintain stephens Equipment Scheduler onc consulted for vaginal bleeding, appreciate recs MRI pelvis ordered Ucx Heme/ID: Daily labs. Continue rocephin/flagyl Ppy: Lovenox 40mg daily, SCDs Special: Okay for shower Dispo: Continue care on RNF. Patient seen by and plans discussed with staff, Dr. Sotelo. Jesus Newman, DO Colorectal Surgery [facility] Pager [phone] 09/20/23 [id number] Discharge Planning Living Arrangements Other (Comment) (FCI) Support Systems Children Type of Residence FCI/residential care Patient expects to be discharged to: Return to fdc- [facility] in [place], [place] Does the patient need discharge transport [...] for a colovesical/colovaginal fistuala. She resides at [facility] in [place], [place]. She would like to return there [...] appendectomy who presented as a transfer from [facility] due to left lower quadrant abdominal pain suspicious for colovesical/colovaginal fistula and diverticulitis on CT. Subjective Equipment Scheduler Onc on board for vaginal bleeding, awaiting [...] pancytopenia who presented as a transfer from [facility] due to left lower quadrant abdominal pain [...] prealbumin : Monitor UOP and maintain stephens Equipment Scheduler onc consulted for vaginal bleeding, appreciate recs MRI pelvis ordered Ucx today Heme/ID: Daily labs. Continue rocephin/flagyl Ppy: Lovenox 40mg daily, SCDs Special: Okay for shower Dispo: Continue care on RNF. Patient seen by and plans discussed with staff, Dr. Sotelo. Kang Julian MD Colorectal Surgery [facility] Pager [phone] Images from the original note were not [...] appendectomy who presented as a transfer from [facility] due to left lower quadrant abdominal pain [...] pancytopenia who presented as a transfer from [facility] due to left lower quadrant abdominal pain [...] Dr. Sotelo. Kang Julian MD Colorectal Surgery [facility] Pager [phone] Images from the original note were not [...] appendectomy who presented as a transfer from [facility] due to left lower quadrant abdominal pain [...] pancytopenia who presented as a transfer from [facility] due to left lower quadrant abdominal pain [...] Dr. Sotelo. Fran Brenner MD Colorectal Surgery [facility] Pager [phone] Images from the original note were not [...] appendectomy who presented as a transfer from [facility] due to left lower quadrant abdominal pain [...] pancytopenia who presented as a transfer from [facility] due to left lower quadrant abdominal pain suspicious for colovesical/colovaginal fistula and diverticulitis on CT. Physical exam and imaging (review radiology) is suspicious for fistula. Will work on medical optimization and acquiring outside hospital colonoscopy results for further work-up. Will engage Dr. Apple for optimization, appreciate [facility] [place]. Plan: Neuro: Continue current pain regimen with [...] Dr. Sotelo. Michelle Hendrickson MD Colorectal Surgery [facility] Pager [phone] Pharmacy Medication History Review Poli Ramirez is a 72 y.o. female admitted for Colovaginal fistula. PUMP TESTER Medication List has been updated as [facility] 09/14/23, 21:31:04 ET. The list below reflects the updated PUMP TESTER list. Please review each medication in order [...] than 70 and non-responsive or NPO HYDROcodone-acetaminophen (Somers) 5-325 mg tablet Take 1 tablet by [...] [tizanidine] Not Specified Unknown Derrick Arriola PharmD, [facility] Transitions of Care Pharmacist Medication reconciliation complete Please reach out via [employer] for questions, or if no response call [employer] or [employer]. [facility] documented in this [...] appendectomy who presented as a transfer from [facility] with left lower quadrant abdominal pain suspicious [...] HYDROcodone-acetaminophen 5-325 mg tablet; Commonly known as: Somers; Take 1 tablet by mouth every 6 [...] once daily. For 7 days ending 09/20/23. ([facility] [employer] 15 BILLION per [...] appendectomy who presented as a transfer from [facility] with left lower quadrant abdominal pain suspicious [...] Lancaster MD MPH Gynecologic Oncology PGY7 Pager: [phone], Team Phone: [phone] Problem: Pain Goal: My pain/discomfort is manageable [...] NPO since 1200, plan for U/S around [id number]. PRN pain medication given per orders. Patient requesting lidocaine gel for vaginal area for pain at stephens site, notified. All needs met, WCTM. Please see media for colonoscopy note from 08/15/23 at [facility]. Patient transitioned to the colorectal surgery service. Acute care surgery will sign off at this time. Thank you for allowing us to take care of Ms. Ramirez and we wish the best for her. Appreciate colorectal surgery care. Og Luis MD PGY-1 General Surgery Acute Care Surgery [phone] Epic Chat Preferred Discussed terms of patient's [...] but that he is currently in a fdc here in [place]. Also states that she has a daughter, Jocy Ramirez, who can make decisions for her. Does not have Jocy's number at this time, but states that she would be okay with surgical team calling her to let her know she is in the hospital at [facility]. Staci Degroot MD PGY-3 General Surgery documented [...] had a colonoscopy several weeks ago at [facility] for " work-up of the abdominal pain [...] colonic-vaginal vs colonic vesicular fistula. Transferred to [facility] 09/16 for surgical eval. Underwent MRI 09/21 [...] than 70 and non-responsive or NPO HYDROcodone-acetaminophen (Somers) 5-325 mg tablet Take 1 tablet by [...] CTX 09/16- Flagyl 09/16- Ntf 09/22- Assessment/Plan Poil Ramirez is a 72 y.o. female presenting [...] advise not prolonging NTF long term care phlebotomist as can cause pulmonary toxicity but address new car driver of UTI (fistula). Additionally, would recommend [...] if further questions. ID team A pager [phone]. For new consults, contact pager [phone]. Patient staffed with ID attendant Dr Agarwal [...] s/p lumpectomy, pancytopenia. She originally presented to [facility] with LLQ abdominal pain over the last 4 months. At [facility] a CT scan revealed chronic inflammation with bladder wall thickening, large diverticula with stool in sigmoid colon, and a likely benign mass in the spleen (present since previous scan in 2013). The scan was not able to exclude colovesical or colovaginal fistula. Patient had a colonoscopy several weeks ago at [facility] for work-up of the abdominal pain which was significant for a reported "obstructing mass". Per patient she needed surgery at this time, however, she was not medically optimized, so her surgeon "refused" to perform the operation. She denies previous cardiac history, chest pain, or dyspnea. During pre operative evaluation at [facility], she had a routine TTE which is [...] than 70 and non-responsive or NPO HYDROcodone-acetaminophen (Somers) 5-325 mg tablet 1 tablet, oral, Every [...] was refused from a surgical intervention at [place] which sounds like it may have been due to her heart disease. 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 Still being worked up by primary team, no surgery planned as of yet #Hypertension #Hyperlipidemia #COPD on 2L chronically Recommendations: Please obtain her records from [place] for any echos, or cardiac consultations/testing. 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 AUB -postmenopausal bleeding, pelvic exam limited but unremarkable, given recent weight loss and poor appetite, symptoms c/f AUB-M - MRI ordered by primary team, will follow up and assess for endometrial biopsy - No active bleeding noted at bedside, recommend pad counts (notify Equipment Scheduler Onc team if >2pad/hr over 2hrs) Colovesical/Colovaginal [...] vaginal bleeding. Pelvic MRI without evidence of TRANSPORTATION AID cancer. She should have an endometrial biopsy. If she is having surgery this hospitalization will perform while hospitalized, otherwise would do as an outpatient. We will be available if needed for surgery. Eric Osorio MD Subjective 72 y.o with h/o left breast cancer, HTN, COPD (on 2L NC at home), T2DM, chronic thrombocytopenia and anemia who is a transferred from [facility] for left lower quadrant abdominal pain with [...] than 70 and non-responsive or NPO HYDROcodone-acetaminophen (Somers) 5-325 mg tablet Take 1 tablet by [...] s/p lumpectomy, pancytopenia. She originally presented to [facility] with LLQ abdominal pain over the last 4 months. At [facility] a CT scan revealed chronic inflammation with bladder wall thickening, large diverticula with stool in sigmoid colon, and a likely benign mass in the spleen (present since previous scan in 2013). The scan was not able to exclude colovesical or colovaginal fistula. Patient had a colonoscopy several weeks ago at [facility] for work-up of the abdominal pain which was significant for a reported "obstructing mass". Per patient she needed surgery at this time, however, she was not medically optimized, so her surgeon "refused" to perform the operation. She denies previous cardiac history, chest pain, or dyspnea. During pre operative evaluation at [facility], she had a routine TTE which is [...] than 70 and non-responsive or NPO HYDROcodone-acetaminophen (Somers) 5-325 mg tablet 1 tablet, oral, Every [...] was refused from a surgical intervention at [place] which sounds like it may have been due to her heart disease. 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 Still being worked up by primary team, no surgery planned as of yet #Hypertension #Hyperlipidemia #COPD on 2L chronically Recommendations: Please obtain her records from [place] for any echos, or cardiac consultations/testing. Start [...] included. Colorectal Surgery Consult H&P Poli Ramirez [id number] Consults Reason for admission: We were consulted [...] appendectomy who presents as a transfer from [facility] due to left lower quadrant abdominal pain suspicious for colovesical/colovaginal fistula and diverticulitis on CT. Patient reports left lower quadrant abdominal pain for the last 4 months. Pain worsened 2 nights ago at which time she presented to [facility]. Patient also reports 4 weeks ago she began having vaginal bloody discharge and dark brown/red urine with dysuria. Patient denies any difficulty urinating however she endorses the vaginal discharge/urine has a foul odor to it. Patient had a colonoscopy several weeks ago at [facility] for work-up of the abdominal pain which [...] 10 years that was reportedly normal. At [facility] a CT scan revealed chronic inflammation with [...] pancytopenia who presents as a transfer from [facility] due to left lower quadrant abdominal pain suspicious for colovesical/colovaginal fistula and diverticulitis on CT. Physical exam and imaging (review radiology) is suspicious for fistula. Will work on medical optimization and acquiring outside hospital colonoscopy results for further work-up. Will engage Dr. Apple for optimization, appreciate [facility] [place]. Neuro: Continue current pain regimen with IV [...] Deepak Brenner MD, MD Colorectal Surgery [facility] Service Pager [phone] [facility] ACUTE CARE SURGERY - HISTORY AND PHYSICAL / CONSULT Patient Name: Poli Ramirez Admit Date: [id number] : 1950 AGE: 72 y.o. GENDER: female TODAY'S ASSESSMENT AND PLAN OF CARE: NPO w/ IVF IV ceftriaxone and metronidazole Pain and nausea control as needed Interdisciplinary care with Colorectal Surgery for further workup including imaging and/or colonoscopy Gina Rush MD [facility] [id number] CHIEF COMPLAINT/REASON FOR CONSULT: Poli Ramirez is a 72 yo F, medical history significant for HTN, HLD, COPD (on 2L NC at home), T2DM, left breast cancer (ER positive, T1c, N0, cM0) s/p left lumpectomy, pancytopenia, and open cholecystectomy, appendectomy, who was transferred from [facility] for an intraabdominal abscess, diverticulitis, and a [...] a colonoscopy a few weeks ago at [facility] but was told they did not reach the ileocecal valve due to an obstructing mass and no biopsies were taken. She adds she was referred to a surgeon at [place] but says "the doctor refused surgery because [...] summary Note Date/Time September 15, 2023 1:09am [facility] Medical Records Department [address] [place] [address] Emergency Department Summary 09/15/23 MR#: [id number] Acct: [id number] Name: POLI RAMIREZ Rep #:[id number] : 1950 72 From: Calvin Hester DO PCP: Dr. Jonathan Dillard Sr., DO Status:R EG ER Location: ED ADDENDUM by Dr. Jerad Thomas MD on 09/15/23 at 1326 Patient was turned over to me pending transfer. Physician at [facility] accepted. But there is no bed currently. [...] Patient is a 71-year-old female from the fdc with past medical history of COPD on oxygen 06/06 as well as congestive heart failure hypertension and diabetes. She has been evaluated over the past 4 to 5 months for recurrent abdominal pain and found to have chronic colitis. There is concern this could be related to a potential malignancy. The patient is on Somers secondary to this. Reportedly she recently was diagnosed with UTI as well and has been placed on antibiotics. Patient is complaining of persistent abdominal pain as well as vaginal bleeding [facility] Medical History Acute on chronic respiratory [...] bisacodyl 10 mg rectal suppository 10 mg ID DAILY PRN constipation 11/11/22 [History Last Taken [...] surgery Hx of cholecystectomy Social History housing: fdc Smoking Status: Former smoker alcohol intake: never [...] reported the pain has been controlled with Somers and now is no longer controlling her [...] case was discussed with Dr. Landon/surgery from [facility]. She agrees to accept the patient [...] (Auto) 70.5 H Lymph % (Auto) 19.5 [place] % (Auto) 7.8 Eos % (Auto) 0.8 [...] Clarity Clear Urine pH 6.0 Ur Specific [place] 1.010 Urine Protein 30 H Urine Glucose [...] EDT , Management Discussion w/another healthcare provider: Wedding Coordinator and Other Discharge Plan Triage Chief Complaint: Abd Pain ED Provider: Calvin Hester Dx/Rx/DC Orders Clinical Impression: Type 2 diabetes mellitus, Abscess of intestine, COPD (chronic obstructive pulmonary disease), Chronic anemia Prescriptions: No Action bisacodyl 10 mg suppository 10 mg ID DAILY PRN (Reason: constipation) cranberry 400 mg [...] Disposition Disposition: Acute Care Hospital Discharge Location: [facility] What to do if you have Problems For any increased pain, shortness of breath, bleeding, nausea or vomiting, chestpain, or any unexpected problems, contact your Primary Care Provider. Call [facility] ([phone]) or report to the closest Emergency Room. Call 911 if necessary. 09/15/23 0535 <Electronically signed by Calvin Hester DO> Cosigner Signature (if applicable): CC: Dr. Jonathan Dillard Sr., DO ~ Signed [facility] Work Phone: 1([phone]) 792-851110-06-2023 Evaluation + Plan note Future Scheduled Tests Radiology* MRI Pancreas 08/19/23 [facility] 10-04-2023 Note ORIGINAL EXAMINATION: BARIUM ENEMA08/17/2023 12:07 [...] Sign Date: 08/17/2023 3:50:07 PM Ordering Provider: [facility]10-02-2023 Hospital Discharge instructions Patient Education 08/15/2023 12:07:59 [...] including vitamins, herbs, eye drops, creams, and wcze-odc-gcgdmrp medicines. Any blood disorders you have. Any [...] provider tells you to take them. ?Taking phdn-lwp-qszrfjc medicines, vitamins, herbs, and supplements. Follow instructions [...] Document Reviewed: 03/06/2019 Elsevier Patient Education 2020 [place]. 08/15/2023 12:07:59 Barium Enema Barium Enema A [...] including vitamins, herbs, eye drops, creams, and pavr-ute-ozevisx medicines. Any blood disorders you have. Any [...] provider tells you to take them. ?Taking adsf-lho-myslgga medicines, vitamins, herbs, and supplements. Follow instructions [...] 10/28/2001 Document Revised: 03/06/2019 Document Reviewed: 03/06/2019 [employer] Patient Education 2020 [place]. 08/15/2023 12:02:48 Monitored Anesthesia Care, Care After [...] before eating solid foods. General instructions Take qkdk-kkv-alnthcp and prescription medicines only as told by [...] 02/20/2017 Document Revised: 01/29/2019 Document Reviewed: 02/20/2017 [employer] Patient Education 2020 [place]. 08/15/2023 12:02:43 Colonoscopy, Adult, Care After Colonoscopy, [...] a slower pace than normal. ?Eat soft, ijig-ab-comhwx foods. Take ocqc-eih-fpsszji or prescription medicines only as told by [...] 06/14/2005 Document Revised: 08/23/2018 Document Reviewed: 01/11/2017 [employer] Patient Education 2020 [place]. Follow Up Care 08/09/2023 08:04:53 With:MARK JEREZ Address: [address] [place] [address] [phone] Business (1) When: Unknown Comments:KEEP YOUR APPOINTMENT FOR YOUR MRI ON TUESDAY AT [address] JEREZ WOULD LIKE POLI TO HAVE A BARIUM EMEMA ON TUESDAY. THE ORDER IS IN THE FOLDER. PLEASE CALL DR. JEREZ'S OFFICE TO GET THE ORDERS FOR A PREP. PLEASE CALL THE NUMBER ON THE ORDER TO SCHEDULE THE BARIUM ENEMA [phone]. [facility] 10-02-2023 Evaluation + Plan noteExtracted from: Title:Clinical Document Author:MARK JEREZ Date:08/15/23 [facility]ALI ADMISSION HISTORY AN D PHYSICIAL CHIEF COMPLAINT: HISTORY OF PRESENT ILLNESS: REVIEW OF SYSTEMS: ACTIVE PROBLEMS: (32) Anemia (257517709) Arthritis (7319205) Benign colon polyp (1618170694) Breast cancer (931673373) Cervical spine fracture (794392841) Chest pain (74685803) Chronic anemia (791557564) Chronic back pain (242703571) COPD (66634062) Dependence on wheelchair (906651304) Diabetes mellitus type 2 (710392814) Diabetic neuropathy (420487945) Diarrhea (046732402) Dysphagia (96224371) Edema of both lower extremities (150886465) Encounter for surgical aftercare following surgery of nervous system (135904559) General weakness (73896040) GERD (gastroesophageal reflux disease) ([id number]) Glasses (9417852017) Goiter (5368264) Hard of hearing (999039113) Heart attack (61196325) History of radiation exposure (051453121) Hx of thrombocytopenia (820146462) Hyperlipidemia (27287054) Hypertension, essential (57412440) Incontinence of urine (7120111691) Osteoarthritis (6437054427) Oxygen dependent (7160817967) Pancreatic cyst (43940106) Rheumatic fever (93410643) Urinary incontinence (1594761108) MEDICATIONS: Active Inpt Meds: None Active PRN Meds: None One Time Meds: None Active IV Meds: Lactated Ringers Infusion 1,000 mL (LR 1,000 mL) Start: 08/15/23 10:41:00 EDT, Rate: 50 mL/hr, 08/15/23 10:41:00 EDT ALLERGIES: (2) Flexeril Zanaflex FAMILY HISTORY: SOCIAL HISTORY: PHYSICAL EXAM: VITALS: BsgcwbPwleOSIyqcmESIrR3RDT5IyaxRi(kg) 08/15 10:1936.7--205259OS41/02 95.0 08/15 95.0 24 Hr Tmax: 36.7 [...] LABS: 36hr Labs 08/15 1041 Blood Glucose, Unxlokafv676W Blood Glucose, Sqfydtful258L DIAGNOSTICS: IMPRESSION: PLAN: History and Physical Update I have examined the patient; reviewed the H&P and there are no changes to the H&P unless noted below. Future Appointments Appointment Date:08/17/2023 10:30:00 AM Scheduled Provider: Location:[facility] Appointment Type:XR Barium Enema Complete Appointment Date:08/19/2023 02:30:00 PM Scheduled Provider: Location:[facility] Appointment Type:MRI Pancreas Future Scheduled Tests Radiology* XR Barium Enema Complete 08/17/23 * MRI Pancreas 08/19/23 [facility] 10-02-2023 Summary of episode note Discharge Instructions Thank you for allowing [facility] to assist you with your healthcare needs. The following is importantdischarge information regarding your hospital visit. Your Care Team BARBER CARLISLE What to do next Scheduled Follow-Up Appointments Appointment Type When Where Contact InformationMRI Pancreas 08/19/2023 02:30 PM [facility] [phone] Follow Up Appointments Follow Up with MARK JEREZ When Why: KEEP YOUR APPOINTMENT FOR YOUR MRI ON TUESDAY AT [address] JEREZ WOULD LIKE POLI TO HAVE A BARIUM EMEMA ON TUESDAY. THE ORDER IS IN THE FOLDER. PLEASE CALL DR. JEREZ'S OFFICE TO GET THE ORDERS FOR A PREP. PLEASE CALL THE NUMBER ON THE ORDER TO SCHEDULE THE BARIUM ENEMA [phone]. Where: [address] [place] [address]- [phone] Business (1) The Following Activity and Diet [...] including vitamins, herbs, eye drops, creams, and hvbl-kfo-vhqekhd medicines. Any blood disorders you have. Any [...] tells you to take them. ? Taking rmwo-hrf-telphfc medicines, vitamins, herbs, and supplements. Follow instructions [...] 10/28/2001 Document Revised: 03/06/2019 Document Reviewed: 03/06/2019 [employer] Patient Education 2020 [place]. Barium Enema A barium enema is a [...] including vitamins, herbs, eye drops, creams, and jbph-qki-gsbgjrm medicines. Any blood disorders you have. Any [...] tells you to take them. ? Taking uthc-mvn-rklcami medicines, vitamins, herbs, and supplements. Follow instructions [...] 10/28/2001 Document Revised: 03/06/2019 Document Reviewed: 03/06/2019 [employer] Patient Education 2020 [place]. Monitored Anesthesia Care, Care After These instructions [...] before eating solid foods. General instructions Take svol-nys-hgqgynh and prescription medicines only as told by [...] 02/20/2017 Document Revised: 01/29/2019 Document Reviewed: 02/20/2017 [employer] Patient Education 2020 [place]. Colonoscopy, Adult, Care After This sheet gives [...] slower pace than normal. ? Eat soft, kwvs-gz-jxepvh foods. Take bjsv-svr-ytkpolj or prescription medicines only as told by [...] 06/14/2005 Document Revised: 08/23/2018 Document Reviewed: 01/11/2017 [employer] Patient Education 2020 [employer] Additional Information VACCINATE! IT SAVES LIVES! Members of the community who have not yet received the COVID-19 vaccine and would like to receive it can visit one of [facility] vaccine clinics. There are many vaccine clinic locations within the [facility]. For locations and available times, please visit [email or web address] It is important to note that some COVID mobile vaccine clinics are held outdoors and may be canceled in rainy or stormy conditions. To learn more about pediatric vaccinations (ages 5-11), we invite you to visit the [facility] webpage. [email or web address]/[email or web address]-Mqxmedvebrj-Zyeuebrawo-Znlny-[email or web address] stions.htmlTo learn more about the COVID-19 vaccine, we invite you to visit the CDC website for a list of frequently asked questions.https://www.cdc.gov/coronavirus/2019-ncov/vaccines/faq.html [facility] Patient Portal Access Instructions: Stay connected with your healthcare team and access your personal medical information anytime with the [facility] Patient Portal. Please follow the directions below to create your [facility] account: 1.Access the email account you provided upon registration to the hospital/physician office.2.Look for an invitation email from [facility].3.Open the email and access the invitation link: AcceptInvitation to [facility].4.Fill in the required quijano to create your account. To access your account, visit [employer]. Click the blue button labeled "Access Patient Portal" and then log in with the username and password that you created in the steps above. You will be able to view your test results, lab results, a summary of your visits, upcoming appointments and more. There is also a convenient messaging option where you can send secure messages to your APERA BAGSvider. In addition, you will have the ability to download any documents or summaries to your computer and/or send the information securely to a physician. Remember that your healthcare information is confidential, so carefully consider who you will allowto register on the [facility] Patient Portal for access to your information. You can also access the [facility] Patient Portal on the [facility] marcy. Simply click on "Patient Portal" and then log into your account. If you would like to receive a full copy of your medical records, please contact the [facility] Medical Records Department by calling [phone], Tuesday through Tuesday between 8 a.m. and [...] Call your local pharmacy or go to [email or web address] to find one close to you.3.Make use of household items: Use cat litter or old coffee grounds to dispose medications if other options arenot available. Mix your drugs with these household products, seal them in an airtight container andthrow it into the garbage. Call [facility]: [phone] to be sure your drugs can be [...] that I should contact my d octor. 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10-02-2023 Nurse Progress note Attempted colonoscopy. Dr. Jerez ordered a Barium Enema. Outdoor Guide X-Rays taken. Radiologist stated tomuch air for a Barium Enema today. Dr. Jerez notified. Orders received. Digitally Signed by Amy Watters RN on 08/15/2023 11:[address] [facility]10-02-2023 Note ORIGINAL HISTORY: Failed colonoscopy, stricture [...] Sign Date: 08/15/2023 12:08:09 PM [facility] Anesthesiology Consult note Patient: POLI RAMIREZ Age: 72 years Sex: Female : 1950 Associated Diagnoses: None Author: DELFIN RAM APRN-PROCUREMENT OFFICER Assessment Postanesthesia assessment Vitals: Vital signs from [...] by DELFIN RAM on 08/15/2023 11:[address] [facility]10-02-2023 Anesthesiology Consult note Patient: POLI RAMIREZ [...] list: Medical Chronic anemia / SNOMED CT 730563175 / Confirmed Chronic back pain / SNOMED CT 968387397 / Confirmed COPD / SNOMED CT 67329973 / Confirmed Hypertension, essential / SNOMED CT 13388778 / Confirmed Cervical spine fracture / SNOMED CT 031278149 / Confirmed GERD (gastroesophageal reflux disease) / SNOMED CT [id number]-BJ7Q-MN985YC46AV1 / Confirmed Goiter / SNOMED CT 3463650 / Confirmed Hyperlipidemia / SNOMED CT 80671437 / Confirmed Encounter for surgical aftercare following surgery of nervous system / SNOMED CT 156828967 / Confirmed Incontinence of urine / SNOMED CT 0267814762 / Confirmed, Active Problems (32) Anemia Arthritis [...] incontinence Histories Past Medical History: Active COPD (47100141) Chronic back pain (068959266) Resolved H/O hypercholesterolemia (1475312194): Resolved. Hypernatremia (9474537977): Resolved. Family History: Heart disease Father Brother Arthritis Daughter Stroke Mother Cancer Sister HTN - Hypertension Mother GERD (gastroesophageal reflux disease) Daughter Diverticulitis Daughter Procedure history: Cervical discectomy (245035572) on 07/13/2022 at 71 Years. Comments: 08/09/2022 11:44 Viji Diaz INVENTORY PLANNER ACDF None (330790114). Appendectomy (892136846). Comments: 08/11/2017 12:13 SHAMA BOLOTN left water taken off Tubal ligation (527031793). Cholecystectomy (71832010). Arthroscopic knee operation (4458615391). Comments: 12/24/2019 13:16 SHAMA Gabriel right Lumpectomy of breast (3074552222). Comments: 12/24/2019 13:16 SHAMA Gabriel left Phacoemulsification of cataract with intraocular lens implantation (4734825848). Comments: 12/24/2019 13:16 SHAMA Gabriel both eyes Colonoscopy (064573279). Esophagogastroduodenoscopy (288638290). Cardiac catheter (6788626143). Comments: 12/24/2019 13:17 SHAMA Gabriel years ago [...] Signs(last 24 hrs) Last Charted Heart Rate Jcuhdckcz28 bpm (AUG 15 11:15) Resp Rate H 21br/min (AUG 15 10:19) QZQ018 mmHg (AUG 15 11:11) YBF474 mmHg (AUG 15 11:11) BMI34.89 (OCT 02 10:29) Measurements from flowsheet : Measurements 08/15/2023 10:29 EDT Height 165 cm Admission Weight 95 kg [place] Body Weight 56.91 kg BSA Admission 2.02 Body Mass Index 34.89 kg/m2 08/15/2023 10:19 EDT Height 165 cm Admission Weight 95 kg [place] Body Weight 56.91 kg Admission Body Mass [...] mg mg 08/15/2023 11:12 EDT SN - NV - Medication glucagon recombinant 1 mg SN - NV - Route of Administration Intravenous SN - NV - By (Single) SN - NV - By (Single) SN - NV - Time Administered 08/15/2023 11:11 08/15/2023 11:11 [...] propofol 50 mg mg 08/15/2023 11:01 EDT [place] History and Physical 08/15/2023 11:00 EDT SN [...] Surgeon SN - CAt - Role Performed Wafer Batter Mixer 1 SN - CAt - Role Performed Court Advocate SN - CAt - Role Performed PROCUREMENT OFFICER 08/15/2023 11:00 EDT Heart Rate Monitored 96 [...] Person #2 We May Share AALIYAH Oakley [phone] Designated Person #2 Relationship Daughter Height 165 cm Admission Weight 95 kg [place] Body Weight 56.91 kg BSA Admission 2.02 [...] Method Explanation, Printed materials Preferred Spoken Language Croatian Preferred Written Language Croatian Information Given by Patient Patient's Current Physicians Patient's Current Physicians Discharge To, Anticipated Home with family care Prev Test Positive/Diagnosis w/COVID-19 No Current Quarantine/Isolated any Illness No Any Contact with Sick Animals/Birds No Traveled Anywhere in Last 30 Days No N/A Personal Devices, Patient Valuables None Admission Note-Nursing Procedure/Therapy Intake 08/15/2023 10:19 EDT Height 165 cm Admission Weight 95 kg [place] Body Weight 56.91 kg Admission Body Mass [...] Quadrants Present Skin Temperature Warm Skin Description Asher, Dry Skin Integrity Intact Mucous Membrane Color Asher Characteristics of Speech Clear Level of Consciousness [...] Allergies Yes Anesthesia Extension Set 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 Assessment and Plan [place] Society of Anesthesiologists (ASA) physical status classification: Class IV. Anesthetic Preoperative Plan Anesthetic technique: MAC. Informed consent: signed by patient. Digitally Signed by DELFIN RAM on 08/15/2023 11:[address] [facility]10-02-2023 Anesthesiology Consult note Patient: POLI RAMIREZ [...] by DELFIN RAM on 08/15/2023 11:[address] [facility]10-02-2023 Note MALAKOFF ADMISSION HISTORY AND PHYSICIAL CHIEF COMPLAINT: HISTORY OF PRESENT ILLNESS: REVIEW OF SYSTEMS: ACTIVE PROBLEMS: (32) Anemia (322444506) Arthritis (7127672) Benign colon polyp (3424408021) Breast cancer (178151796) Cervical spine fracture (599563684) Chest pain (30688036) Chronic anemia (400593766) Chronic back pain (782157351) COPD (93988089) Dependence on wheelchair (488743279) Diabetes mellitus type 2 (052194671) Diabetic neuropathy (079959219) Diarrhea (877353887) Dysphagia (61440113) Edema of both lower extremities (558468885) Encounter for surgical aftercare following surgery of nervous system (131579022) General weakness (27819100) GERD (gastroesophageal reflux disease) ([id number]) Glasses (7453318818) Goiter (2543841) Hard of hearing (379684651) Heart attack (94858330) History of radiation exposure (378281219) Hx of thrombocytopenia (576139580) Hyperlipidemia (32227540) Hypertension, essential (20556268) Incontinence of urine (4113002238) Osteoarthritis (4361253999) Oxygen dependent (6545244363) Pancreatic cyst (19473911) Rheumatic fever (73359904) Urinary incontinence (3976750492) MEDICATIONS: Active Inpt Meds: None Active PRN Meds: None One Time Meds: None Active IV Meds: Lactated Ringers Infusion 1,000 mL (LR 1,000 mL) Start: 08/15/23 10:41:00 EDT, Rate: 50 mL/hr, 08/15/23 10:41:00 EDT ALLERGIES: (2) Flexeril Zanaflex FAMILY HISTORY: SOCIAL HISTORY: PHYSICAL EXAM: VITALS: QwiuqyJivxHJOrespAGYrJ4DIV4GzccPc(kg) 08/15 10:1936.7--035554ER07/02 95.0 08/15 95.0 24 Hr Tmax: 36.7 [...] LABS: 36hr Labs 08/15 1041 Blood Glucose, Vwtvkzjsv027G Blood Glucose, Gdoiaeqaw182M DIAGNOSTICS: IMPRESSION: PLAN: History and Physical Update I have examined the patient; reviewed the H&P and there are no changes to the H&P unless noted below. Digitally Signed by MARK JEREZ MD on 08/15/2023 11:[address] [facility]08-31-2023 Discharge summary Author Shahnaz [facility] July 14, 2023 7:47pm Note Date/Time July 14, 2023 3: 43pm [facility] Medical Records Department [address] [place] [address] Emergency Department Summary 07/14/23 MR#: [id number] Acct: [id number] Name: POLI RAMIREZ Rep #:[id number] : 1950 72 From: Shahnaz Georges PCP: [...] DNR CCA. She is a resident of [facility]. She notes that she is mostly wheelchair-bound but can walk short distances. Had a neck fracture earlier thisyear. [facility] Medical History Acute on chronic [...] bisacodyl 10 mg rectal suppository 10 mg ID DAILY PRN 11/11/22 [History Last Taken Unknown] [...] surgery Hx of cholecystectomy Social History housing: fdc Smoking Status: Former smoker alcohol intake: never [...] Patient isalso prescribed a short course of [place] for pain control. Is given first dose [...] 76.9 H Lymph % (Auto) 14.7 L [place] % (Auto) 6.5 Eos % (Auto) 1.3 [...] Clarity Clear Urine pH 6.0 Ur Specific [place] 1.020 Urine Protein 15 H Urine Glucose [...] Action bisacodyl 10 mg suppository 10 mg ID DAILY PRN cranberry 400 mg capsule 400 [...] your Primary Care Provider. Call [facility] ([phone]) or report to the closest Emergency Room. Call 911 if necessary. 07/14/231946 <Electronically signed by Shahnaz Way DO> Cosigner Signature (if applicable): CC: Jonathan Dillard MD ~ Signed [facility] Work Phone: 1(359) 992-167606-06-[address] Vela [facility] April 19, 2023 7:53pm Note Date/Time April 19, 2023 6:13p m [facility] Medical Records Department [address] [place] [address] Emergency Department Summary 04/19/23 MR#: [id number] Acct: [id number] Name: POLI RAMIREZ Rep #:[id number] : 1950 72 From: Alejandra Vela DO PCP: Gilma STUBBS, Jonathan Status:REG ER Location: ED HPI HPI - GI History of Present Illness Chief Complaint: Abd Pain Narrative Narrative: 72-year-old female presenting with left lower quadrant abdominal pain. She states this has been present off and on for weeks. She states that the [facility]dc she is at she gets Tylenol for this and it goes away but over the last few days the Tylenol is not helping. She has nausea without vomiting. She denies constipation. She states she has loose stools its not quite diarrhea. No blackor bloody stools. She states that at times there is right-sided abdominal pain. She has not had a fever at home. [facility] Medical History Acute on chronic [...] bisacodyl 10 mg rectal suppository 10 mg ID DAILY PRN 11/11/22 [History Last Taken Unknown] [...] surgery Hx of cholecystectomy Social History housing: fdc Smoking Status: Former smoker alcohol intake: never [...] discussed with the on-call physician for the fdc. They wish to have the patient started [...] 81.7 H Lymph % (Auto) 11.2 L [place] % (Auto) 5.5 Eos % (Auto) 0.9 [...] Clarity Clear Urine pH 6.5 Ur Specific [place] 1.010 Urine Protein Negative Urine Glucose (UA) [...] Paper guidelines (Bailey, et al. JACR 2017; 14(8):3721-4672) recommend a low dose, non-contrast adrenal CT [...] Action bisacodyl 10 mg suppository 10 mg ID DAILY PRN cranberry 400 mg capsule 400 [...] your Primary Care Provider. Call [facility] ([phone]) or report to the closest Emergency Room. Call 911 if necessary. 04/19/231952 <Electronically signed by Alejandra Vela DO> Cosigner Signature (if applicable): CC: Jonathan Dillard MD ~ Signed [facility] Work Phone: 1(468) 828-245504-14-[address] Jaime [facility] February 25, 2023 11:39am Note Date/Time February 25, 2023 11: 37am [facility] Medical Records Department [address] [place] [address] Transfer to [facility] MR#: [id number] Acct: [id number] Name: POLI RAMIREZ Rep #:[id number] : 1950 72 From: Pratima Jaime MD PCP: ARLENE Edmonds Status:ADM I N Certification of patient admission REQUIRED AT TIME OF ADMISSION. I CERTIFY THAT POST-HOSPITAL ECF SERVICES ARE REQUIRED TO BE GIVEN ON AN IN-PATIENT BASIS BECAUSE OF THE ABOVE NAMED PATIENT'S NEED FOR SENIOR LIVING CARE ON A CONTINUING BASIS FOR THE CONDITION(S) FOR WHICH HE/SHE WAS RECEIVING IN-PATIENT HOSPITAL SERVICES PRIOR TO HIS/HER TRANSFER TO THE [facility]. 02/25/23 1139<Electronically signed by Pratima Jaime MD> [...] displaced fracture of cervical vertebra resulting in fdc placement, VTE presented to [facility] 02/18/23 due to unresponsiveness. She was found unresponsive by the fdc where she lived. She was found to [...] to schedule your hospital follow-up appointment (ph [phone]) -Weigh yourself every day. A sudden weight [...] Monique ; Krzysztof Pennington ; Viji Richey PRESSURIZER ; Rebecca Resendiz ; Thomas Ahumada ; [...] to schedule your hospital follow-up appointment ( [phone]) -Weigh yourself every day. A sudden weight [...] Continued bisacodyl 10 mg suppository 10 mg ID DAILY PRN cranberry 400 mg capsule 400 [...] hospital follow-up appointment )) Barber Carlisle NP, PRESSURIZER-C [Primary Care Provider] - Within 1 Week Disposition Disposition (needs filled in before D/C Order can be placed): [facility] Facility 02/25/23 1130 <Electronically signed by Pratima Jaime MD> Cosigner Signature (if applicable): CC: PRESSURIZER-C Viji Richey; PRESSURIZER-C Barber Carlisle; Dr. Serge Banks MD; Dr. Hernando Padron MD; Dr. Ajit Mcgill DO; Dr. Thomas Ahumada MD; Dr. Rebecca Resendiz DO; Dr. Martín Monique MD; Dr. Krzysztof Pennington MD ~ [facility] Work Phone: 1(869) 585-996804-13-[address] Jaime [facility] February 24, 2023 3:21pm Note Date/Time February 24, 2023 3:2 1pm [facility] Medical Records Department [address] [place] [address] [place] [address] Progress Note - Hospitalist 02/24/23 0567 MR#: [id number] Acct: [id number] Name: POLI RAMIREZ Rep #:[id number] : 1950 72 From: Pratima Jaime MD PCP: Barber Carlisle PRESSURIZER-Andrea Status:ADM I N Location: [place] [address] Reason for Visit Reason for Visit: Diagnoses [...] 80.1 H, Lymph % (Auto) 12.6 L, [place] % (Auto) 5.1, Eos % (Auto) 1.5, [...] documentation, 30minutes Charges/Coding Visit Charges Inpatient E&M: 37173 Subs Hosp L2 02/24/23 1521 <Electronically signed by Pratima Jaime MD> Cosigner Signature (if applicable): CC: ~ Signed [facility] Work Phone: 1(658) 890-331004-12-[address] Jaime [facility] February 23, 2023 2:03pm Note Date/Time February 23, 2023 10: 52am [facility] Medical Records Department [address] [place] [address] Progress Note - Hospitalist 02/23/23 1051 MR#: [id number] Acct: [id number] Name: POLI RAMIREZ Rep #:[id number] : 1950 72 From: Pratima Jaime MD PCP: ARLENE Edmonds Status:ADM I N Location: [place] [address] Reason for Visit Reason for Visit: Diagnoses [...] (Auto) 78.1 H, Lymph % (Auto) 13.7L, [place] % (Auto) 6.1, Eos % (Auto) 1.5, [...] documentation, 30minutes Charges/Coding Visit Charges Inpatient E&M: 26327 Subs Hosp L2 02/23/23 1403 <Electronically signed by Pratima Jaime MD> Cosigner Signature (if applicable): CC: ~ Signed [facility] Work Phone: 1(254) 706-416504-12-[address] Gonzalez [facility] February 23, 2023 9:38am Note Date/Time February 23, 2023 9:3 8am [facility] Medical Records Department [address] [place] [address] Progress Note - Cardiology 02/23/2335 MR#: [id number] Acct: [id number] Name: POLI RAMIREZ Rep #:[id number] : 1950 72 From: Miroslava Gonzalez MD PCP: ARLENE Edmonds Status:ADM I N Location: [place] [address] Subjective Subjective No chest pain or shortness [...] (Auto) 78.1 H, Lymph % (Auto) 13.7L, [place] % (Auto) 6.1, Eos % (Auto) 1.5, [...] 78.1 H, Lymph % (Auto) 13.7 L, [place] % (Auto) 6.1, Eos % (Auto) 1.5, [...] (4) Anemia: PLAN: Hemoglobin actually improved. 02/23/23 0971 <Electronically signed by Miroslava Gonzalez MD> Cosigner Signature (if applicable): CC: ~ Signed [facility] Work Phone: 1(274) 727-220004-11-[address] Banks [facility] February 22, 2023 2:54pm Note Date/Time February 22, 2023 8:3 6am [facility] Medical Records Department [address] [place] [address] Progress Note - Automotive Lot Attendant 02/22/23 0832 MR#: [id number] Acct: [id number] Name: POLI RAMIREZ Rep #:[id number] : 1950 72 From: Serge Banks MD PCP: Barber Carlisle, PRESSURIZER-C Status:ADM I N Location: ICU ICU03-1 Assessment [...] 82.0 H, Lymph % (Auto) 9.4 L, [place] % (Auto) 6.6, Eos % (Auto) 1.6, [...] affect normal Charges/Coding Visit Charges Inpatient E&M: 64427 Subs Hosp L2 02/22/23 9344 <Electronically signed by Serge Banks MD> Cosigner Signature (if applicable): CC: ~ Signed [facility] Work Phone: 1(290) 124-529004-11-[address] Gonzalez [facility] February 22, 2023 9:26am Note Date/Time February 22, 2023 9:2 6am [facility] Medical Records Department [address] [place] [address] Progress Note - Cardiology 02/22/23921 MR#: [id number] Acct: [id number] Name: POLI RAMIREZ Rep #:[id number] : 1950 72 From: Miroslava Gonzalez MD [...] 82.0 H, Lymph % (Auto) 9.4 L, [place] % (Auto) 6.6, Eos % (Auto) 1.6, [...] 82.0 H, Lymph % (Auto) 9.4 L, [place] % (Auto) 6.6, Eos % (Auto) 1.6, [...] Cosigner Signature (if applicable): CC: ~ Signed [facility] Work Phone: [phone]) 272-627004-11-[address] Jaime [facility] February 22, 2023 8:30am Note Date/Time February 22, 2023 8:3 0am [facility] Medical Records Department [address] [place] [address] Progress Note - Hospitalist 02/22/23819 MR#: [id number] Acct: [id number] Name: POLI RAMIREZ Rep #:[id number] : 1950 72 From: Pratima Jaime MD PCP: Barber Carlisle, PRESSURIZER-C Status:ADM I N Location: ICU ICU03-1 Reason [...] 82.0 H, Lymph % (Auto) 9.4 L, [place] % (Auto) 6.6, Eos % (Auto) 1.6, [...] documentation, 30minutes Charges/Coding Visit Charges Inpatient E&M: 84453 Subs Hosp L2 02/22/23 0830 <Electronically signed by Pratima Jaime MD> Cosigner Signature (if applicable): CC: ~ Signed [facility] Work Phone: [phone] Jaime [facility] February 21, 2023 4:59pm Note Date/Time February 21, 2023 7:0 7am [facility] Medical Records Department [address] [place] [address] Progress Note - Hospitalist 02/21/23706 MR#: [id number] Acct: [id number] Name: POLI RAMIREZ Rep #:[id number] : 1950 72 From: Pratima Jaime MD PCP: ARLENE Edmonds Status:ADM I N Location: ICU [place] [address] Reason for Visit Reason for Visit: Diagnoses [...] 79.0 H, Lymph % (Auto) 14.1 L, [place] % (Auto) 5.3, Eos % (Auto) 0.7, [...] Bilirubin 0.80, AST 21, ALT 24, Alkaline Cmogaonvnsu47, Total Protein 5.6 L, Albumin 2.2 L, [...] documentation, 30minutes Charges/Coding Visit Charges Inpatient E&M: 39224 Subs Hosp L2 02/21/23 6992 <Electronically signed by Pratima Jaime MD> Cosigner Signature (if applicable): CC: ~ Signed [facility] Work Phone: [phone]) 193-347304-10-[address] Banks [facility] February 21, 2023 4:00pm Note Date/Time February 21, 2023 8:0 3am [facility] Medical Records Department [address] [place] [address] Progress Note - Automotive Lot Attendant 02/21/23 0752 MR#: [id number] Acct: [id number] Name: POLI RAMIREZ Rep #:[id number] : 1950 72 From: Serge Banks MD [...] 79.0 H, Lymph % (Auto) 14.1 L, [place] % (Auto) 5.3, Eos % (Auto) 0.7, [...] Bilirubin 0.80, AST 21, ALT 24, Alkaline Vilbunyqzcw44, Total Protein 5.6 L, Albumin 2.2 L, [...] and affect normal Charges/Coding Procedures Hospitalists Procedures: 56716 Critial Care 1st Hr 02/21/23 1600 <Electronically signed by Serge Banks MD> Cosigner Signature (if applicable): CC: ~ Signed [facility] Work Phone: [phone] Gonzalez [facility] February 21, 2023 9:54am Note Date/Time February 21, 2023 9:5 4am [facility] Medical Records Department [facility] [place] [address] Progress Note - Cardiology 02/21/23 0951 MR#: [id number] Acct: [id number] Name: POLI RAMIREZ Rep #:[id number] : 1950 72 From: Miroslava Gonzalez MD PCP: Barber Carlisle PRESSURIZER-C Status:ADM I N Location: ICU ICU03-1 Subjective [...] 79.0 H, Lymph % (Auto) 14.1 L, [place] % (Auto) 5.3, Eos % (Auto) 0.7, [...] Bilirubin 0.80, AST 21, ALT 24, Alkaline Buxeixnxjgy47, Total Protein 5.6 L, Albumin 2.2 L, [...] 79.0 H, Lymph % (Auto) 14.1 L, [place] % (Auto) 5.3, Eos % (Auto) 0.7, [...] Cosigner Signature (if applicable): CC: ~ Signed [facility] Work Phone: [phone] 612-139304-10-2023 Consult note Author Armani Napier [facility] February 21, 2023 4:07am Note Date/Time February 21, 2023 4:0 7am [facility] Medical Records Department [address] [place] [address] [place] [address] Pharmacokinetic/Renal -Consult 02/21/23 0406 MR#: [id number] Acct: [id number] Name: POLI RAMIREZ Rep #:[id number] : 1950 72 From: Armani Valdez od PCP: Barber Carlisle PRESSURIZER-Andrea Status:ADM I N Y Location: ICU ICU03-1 [...] Signature (if applicable): Date CC: ~ Signed [facility] Work Phone: [phone] Monique [facility] February 20, 2023 4:59pm Note Date/Time February 20, 2023 4:37 pm [facility] Medical Records Department [address] [place] [address] Progress Note - Automotive Lot Attendant 02/20/23 1634 MR#: [id number] Acct: [id number] Name: POLI RAMIREZ Rep #:[id number] : 1950 72 From: Martín Monique MD PCP: Barber Carlisle, PRESSURIZER-Andrea Status:ADM I N Location: ICU ICU03-1 Assessment [...] performed. [place] [address] Subjective Subjective Intubated and sedated on ventilator, [...] (Auto) 80.9 H, Lymph % (Auto) 11.6L, [place] % (Auto) 6.4, Eos % (Auto) 0.2, [...] 6:54 EDT Reading Location ID and State: [address] [place] [address] Tel , Service support , Rhythm Strip Rhythm Strip: Sinus Rhythm Rate: 95 Ectopy: None Physical Exam Narrative 10 system exam done. Unchanged from yesterday. Charges/Coding Procedures Hospitalists Procedures: 70736 Critial Care 1st Hr 02/20/23 1659 <Electronically signed by Martín Monique MD> Cosigner Signature (if applicable): CC: ~ Signed [facility] Work Phone: [phone] Gonzalez [facility] February 20, 2023 10:38am Note Date/Time February 20, 2023 10:3 8am [facility] Medical Records Department [address] [place] [address] [place] [address] Progress Note - Cardiology 02/20/23 1035 MR#: [id number] Acct: [id number] Name: POLI RAMIREZ Rep #:[id number] : 1950 72 From: Miroslava Gonzalez MD PCP: Barber Carlisle, PRESSURIZER-Andrea Status:ADM I N Location: ICU ICU03-1 Subjective [...] (Auto) 80.9 H, Lymph % (Auto) 11.6L, [place] % (Auto) 6.4, Eos % (Auto) 0.2, [...] 80.9 H, Lymph % (Auto) 11.6 L, [place] % (Auto) 6.4, Eos % (Auto) 0.2, [...] Cosigner Signature (if applicable): CC: ~ Signed [facility] Work Phone: [phone] 399-912204-09-[address] Padron [facility] February 20, 2023 8:46am Note Date/Time February 20, 2023 7:12 am [facility] Medical Records Department [address] [place] [address] Progress Note - Hospitalist 02/20/23711 MR#: [id number] Acct: [id number] Name: POLI RAMIREZ Rep #:[id number] : 1950 72 From: Hernando Padron MD [...] (Auto) 80.9 H, Lymph % (Auto) 11.6L, [place] % (Auto) 6.4, Eos % (Auto) 0.2, [...] ABG pO2 69 L 55 L 90 Joovn Test Positive Positive Positive Respiration Rate 12 [...] 6:54 EDT Reading Location ID and State: [facility] / [place] Tel , Service support , Rhythm Strip [...] 45 Minutes Charges/Coding Visit Charges Inpatient E&M: 88058 Subs Hosp L2 02/20/23 0846 <Electronically signed by Hernando Padron MD> Cosigner Signature (if applicable): CC: ~ Signed [facility] Work Phone: [phone] 534-146004-09-[address] Padron [facility] February 20, 2023 7:12am Note Date/Time February 19, 2023 5:15 pm [facility] Medical Records Department [address] [place] [address] Pharmacokinetic/Renal -Consult 02/19/23 1711 MR#: [id number] Acct: [id number] Name: POLI RAMIREZ Rep #:[id number] : 1950 72 From: Gretchen Lance PCP: [...] Date Hernando Padron MD CC: ~ Signed [facility] Work Phone: [phone]) [phone] Monique [facility] February 19, 2023 1:55pm Note Date/Time February 19, 2023 10:4 7am [facility] Medical Records Department [address] [place] [address] Progress Note - Automotive Lot Attendant 02/19/23 1047 MR#: [id number] Acct: [id number] Name: POLI RAMIREZ Rep #:[id number] : 1950 72 From: Martín Monique MD [...] performed. [place] [address], [address]. Subjective Subjective Subjective patient is mildly sedated [...] 79.0 H, Lymph % (Auto) 13.9 L, Beau[place] % (Auto) 6.5, Eos % (Auto) 0.2, [...] Ordering Physician: Hernando Padron Performed By: Bhupinder Rednon RCS [note: chest ultrasound and CT chest [...] Cosigner Signature (if applicable): CC: ~ Signed [facility] Work Phone: [phone] 408-127004-08-[address] Gonzalez [facility] February 19, 2023 11:57am Note Date/Time February 19, 2023 11:5 6am [facility] Medical Records Department [address] [place] [address] Consultation - Cardiology 02/19/23 1146 MR#: [id number] Acct: [id number] Name: POLI RAMIREZ Rep #:[id number] : 1950 72 From: Miroslava Gonzalez MD [...] intubated and unable to provide any history. [facility] Medical History (Updated 02/19/23 @ 11:53 by [...] bisacodyl 10 mg rectal suppository 10 mg ID DAILY PRN 11/11/22 [History Last Taken Unknown] [...] 00:[address] Rebecca Resendiz DO) housing: fdc Smoking Status: Former smoker alcohol intake: never [...] 79.0 H, Lymph % (Auto) 13.9 L, [place] % (Auto) 6.5, Eos % (Auto) 0.2, [...] Gas Notified Whom Blood Gas Notified Time 2807 Rhythm Strip Rhythm Strip: Sinus Rhythm Rate: [...] 79.0 H, Lymph % (Auto) 13.9 L, [place] % (Auto) 6.5, Eos % (Auto) 0.2, [...] Gonzalez MD> Cosigner Signature (if applicable): CC: PRESSURIZER-Andrea Richey; PRESSURIZER-C Barber Carlisle; Dr. Serge Banks MD; Dr. Hernando Padron MD; Dr. Ajit Mcgill DO; Dr. Thomas Ahumada MD; Dr. Rebecca Resendiz DO; Dr. Martín Monique MD; Dr. Krzysztof Pennington MD~ Signed [facility] Work Phone: [phone] Padron [facility] February 19, 2023 8:28am Note Date/Time February 19, 2023 7:11 am [facility] Medical Records Department [address] [place] [address] Progress Note - Hospitalist 02/19/23709 MR#: [id number] Acct: [id number] Name: POLI RAMIREZ Rep #:[id number] : 1950 72 From: Hernando Padron MD [...] 79.0 H, Lymph % (Auto) 13.9 L, [place] % (Auto) 6.5, Eos % (Auto) 0.2, [...] 55 Minutes Charges/Coding Visit Charges Inpatient E&M: 06586 Subs Hosp L3 02/19/2328 <Electronically signed by Hernando Padron MD> Cosigner Signature (if applicable): CC: ~ Signed [facility] Work Phone: [phone] 275-976104-07-[address] Monique [facility] February 18, 2023 8:01pm Note Date/Time February 18, 2023 9:53 am [facility] Medical Records Department [address] [place] [address] Consultation - Automotive Lot Attendant 02/18/2353 MR#: [id number] Acct: [id number] Name: POLI RAMIREZ Rep #:[id number] : 1950 72 From: Martín Monique MD [...] Monique MD> Cosigner Signature (if applicable): cc: PRESSURIZER-C Viji Richey; PRESSURIZER-C Barber Carlisle; Dr. Serge Banks MD; Dr. Ajit Mcgill, DO; Dr. Thomas Ahumada MD; Dr. [...] Thank you for consulting [facility] for critical care. We will follow the patient with you.. Matrín Monique MD [facility] HPI Consult Data Date of Consult: 02/18/23 HPI Narrative Reason for Consultation: Respiratory failure on mechanical ventilation, chronic hypercarbia HPI Narrative: POLI RAMIREZ, is a unfortunate 72-year-old woman who was at the fdc for rehab after neck fracture was found unresponsive at her fdc with SPO2 70s GCS 3.? No response [...] GERD, frequent falls, insomnia, obstructive sleep apnea, NV, generalized weakness, displaced fracture of the sixth and seventh cervical vertebrae, pancytopenia, history of breast cancer, nicotine dependence, osteoarthritis both shoulders, type 2 diabetes with diabetic neuropathy, impaired mobility, venous insufficiency, urinary incontinence. Her home medications were reviewed. Surgical history: Left breast lumpectomy, C-spine surgery, cholecystectomy. Family history is noncontributory.? Social history she is a former smoker. [facility] Medical History (Updated 02/18/23 @ 12:37 by [...] bisacodyl 10 mg rectal suppository 10 mg ID DAILY PRN 11/11/22 [History Last Taken Unknown] [...] 00:[address] Rebecca Resendiz DO) housing: fdc Smoking Status: Former smoker alcohol intake: never [...] 87.0 H, Lymph % (Auto) 6.6 L, [place] % (Auto) 3.6, Eos % (Auto) 0.2, [...] Sl. Cloudy, Urine pH 5.0, Ur Specific [place] 1.030, Urine Protein 100 H, Urine Glucose [...] 88.6 H, Lymph % (Auto) 4.5 L, [place] % (Auto) 5.7, Eos % (Auto) 0.0, [...] ED MD MONIQUE Blood Gas Notified Time 7383 Rhythm Strip Rhythm Strip: Sinus Rhythm Rate: [...] 2:02 EDT , Charges/Coding Procedures Hospitalists Procedures: 08476 [facility] 1st Hr 02/18/23 1241 <Electronically signed by Martín Monique MD> Cosigner Signature (if applicable): CC: PRESSURIZERGiancarlo Richey; ARLENE Carlisle; Dr. Serge Banks MD; Dr. Ajit Mcgill DO; Dr. Thomas Ahumada MD; Dr. Rebecca Resendiz DO; Dr. Martín Monique MD; Dr. Krzysztof Pennington MD~ Signed [facility] Work Phone: [phone] Padron [facility] February 18, 2023 8:24am Note Date/Time February 18, 2023 7:16 am [facility] Medical Records Department [address] [place] [address] Progress Note - Hospitalist 02/18/23711 MR#: [id number] Acct: [id number] Name: POLI RAMIREZ Rep #:[id number] : 1950 72 From: Hernando Padron MD [...] 87.0 H, Lymph % (Auto) 6.6 L, [place] % (Auto) 3.6, Eos % (Auto) 0.2, [...] Sl. Cloudy, Urine pH 5.0, Ur Specific [place] 1.030, Urine Protein 100 H, Urine Glucose [...] 88.6 H, Lymph % (Auto) 4.5 L, [place] % (Auto) 5.7, Eos % (Auto) 0.0, [...] Notified Whom ED Blood Gas Notified Time 6755 Radiography Diagnostic Testing: Radiology Impression Brain CT [...] 55 Minutes Charges/Coding Visit Charges Inpatient E&M: 25758 Subs Hosp L3 02/18/23 0824 <Electronically signed by Hernando Padron MD> Cosigner Signature (if applicable): CC: ~ Signed [facility] Work Phone: [phone] Consult note Author Armani Napier [facility] February 18, 2023 4:15am Note Date/Time February 18, 2023 4:15 am [facility] Medical Records Department [address] [place] [address] Pharmacokinetic/Renal -Consult 02/18/23413 MR#: [id number] Acct: [id number] Name: POLI RAMIREZ Rep #:[id number] : 1950 72 From: Armani Valdez od PCP: Barber Carlisle PRESSURIZERGiancarlo Status:ADM I N Y Location: ICU ICU03-1 [...] Signature (if applicable): Date CC: ~ Signed [facility] Work Phone: [phone]) 263-707404-07-2023 History and physical note Author Dr. Resendiz [facility] February 18, 2023 1:48am Note Date/Time February 18, 2023 12:3 2am [facility] Medical Records Department [address] [place] [address] H&P Exam - Hospitalist 02/18/23 0029 MR#: [id number] Acct: [id number] Name: POLI RAMIREZ Rep #:[id number] : 1950 72 From: Rebecca Resendiz DO PCP: ARLENE Edmonds Status:ADM I N Location: ICU [place] [address] HPI - General General Date of Admission: 02/18/23 Date of Service: 02/18/23 Chief Complaint: Unresponsiveness HPI Narrative POLI RAMIREZ, is a 72 F who presented to the emergency department at [facility] secondary to unresponsiveness. The patient was found to be unresponsive by the fdc staff at where she lives. Upon presentation [...] EKG showed normal sinus rhythm with normal ID interval however she has slightly prolonged QTc. No signs of ischemic changes were noted. [facility] Medical History Anemia Atherosclerotic heart disease Chronic [...] bisacodyl 10 mg rectal suppository 10 mg ID DAILY PRN 11/11/22 [History Last Taken Unknown] [...] 00:[address] Rebecca Resendiz DO) housing: fdc Smoking Status: Former smoker alcohol intake: never [...] 87.0 H, Lymph % (Auto) 6.6 L, [place] % (Auto) 3.6, Eos % (Auto) 0.2, [...] Sl. Cloudy, Urine pH 5.0, Ur Specific [place] 1.030, Urine Protein 100 H, Urine Glucose [...] the morning Charges/Coding Visit Charges Inpatient E&M: 04772 Init Hosp L3 02/18/23 0148 <Electronically signed by Rebecca Resendiz DO> Cosigner Signature (if applicable): CC: ARLENE Carlisle; Dr. Rebecca Resendiz DO~ Signed [facility] Work Phone: [phone] 201-112404-07-[address] Tsai [facility] February 18, 2023 12:19am Note Date/Time February 17, 2023 10:3 4pm [facility] Medical Records Department [address] [place] [address] Emergency Department Summary 02/17/23 MR#: [id number] Acct: [id number] Name: POLI RAMIREZ Rep #:[id number] : 1950 72 From: Ellis Tsai MD PCP: ARLENE Edmonds Status:REG E R Location: ED HPI History of Present Illness Chief Complaint: Unresponsive Informant: EMS Narrative Narrative: Patient brought from local fdc found unresponsive by fdc staff. Barely breathing, hypoxic in the 70s [...] [facility] 60[facility] not [facility]. Last seen normal about 3 hours prior to evaluation here. Apparently she is in a fdc for rehab after a neck fracture. She does not have any collar or cervical spine hardware. EMS also states that family wasapparently there yesterday, and the fdc staff was suspicious that they may be in the drugs. [facility] Medical History (Updated 02/18/23 @ 00:06 [...] bisacodyl 10 mg rectal suppository 10 mg ID DAILY PRN 11/11/22 [History Last Taken Unknown] [...] 87.0 H Lymph % (Auto) 6.6 L [place] % (Auto) 3.6 Eos % (Auto) 0.2 [...] Sl. Cloudy Urine pH 5.0 Ur Specific [place] 1.030 Urine Protein 100 H Urine Glucose [...] (Auto) Neut % (Auto) Lymph % (Auto) [place] % (Auto) Eos % (Auto) Baso % [...] Color Urine Clarity Urine pH Ur Specific [place] Urine Protein Urine Glucose (UA) Urine Ketones [...] Management Discussion w/another healthcare provider: Hospitalist and Wedding Coordinator (javi mcgill) Procedures Intubations Intubation Method: orotracheal [...] pulmonary disease) Disposition Disposition: Acute Care Hospital [facility] What to do if you have Problems For any increased pain, shortness of breath, bleeding, nausea or vomiting, chestpain, or any unexpected problems, contact your Primary Care Provider. Call [facility] ([phone]) or report to the closest Emergency Room. Call 911 if necessary. 02/18/23 0019 <Electronically signed by Ellis Tsai MD> Cosigner Signature (if applicable): CC: ARLENE Carlisle ~ Signed [facility] Work Phone: [phone]) 647-878504-07-[address] Tsai [facility] February 18, 2023 12:19am Note Date/Time February 17, 2023 10:3 4pm [facility] Medical Records Department [address] [place] [address] Emergency Department Summary 02/17/23 MR#: [id number] Acct: [id number] Name: POLI RAMIREZ Rep #:[id number] : 1950 72 From: Ellis Tsai MD PCP: ARLENE Edmonds Status:REG E R Location: ED HPI History of Present Illness Chief Complaint: Unresponsive Informant: EMS Narrative Narrative: Patient brought from local fdc found unresponsive by fdc staff. Barely breathing, hypoxic in the 70s [...] ox 60[facility] and patient not breathing. Last seen normal about 3 hours prior to evaluation here. Apparently she is in a fdc for rehab after a neck fracture. She does not have any collar or cervical spine hardware. EMS also states that family wasapparently there yesterday, and the fdc staff was suspicious that they may be in the drugs. [facility] Medical History (Updated 02/18/23 @ 00:06 [...] bisacodyl 10 mg rectal suppository 10 mg ID DAILY PRN 11/11/22 [History Last Taken Unknown] [...] 87.0 H Lymph % (Auto) 6.6 L [place] % (Auto) 3.6 Eos % (Auto) 0.2 [...] Sl. Cloudy Urine pH 5.0 Ur Specific [place] 1.030 Urine Protein 100 H Urine Glucose [...] (Auto) Neut % (Auto) Lymph % (Auto) [place] % (Auto) Eos % (Auto) Baso % [...] Color Urine Clarity Urine pH Ur Specific [place] Urine Protein Urine Glucose (UA) Urine Ketones [...] 0:01 EDT Reading Location ID and State: [facility] / [place] Tel , Service support , Rhythm Strip Rhythm Strip: Sinus Rhythm Rate: 95 Ectopy: None EKG Initial EKG: Attestation: I personally reviewed and interpreted this EKG as follows: Interpretation: Sinus Rhythm, No Acute Injury Pattern and LBBB Prior EKG tracings: available for review Prior: Unchanged Management Discussion w/another healthcare provider: Hospitalist and Wedding Coordinator (javi mcgill) Procedures Intubations Intubation Method: orotracheal [...] pulmonary disease) Disposition Disposition: Acute Care Hospital [facility] What to do if you have Problems For any increased pain, shortness of breath, bleeding, nausea or vomiting, chestpain, or any unexpected problems, contact your Primary Care Provider. Call [facility] ([phone]) or report to the closest Emergency Room. Call 911 if necessary. 02/18/23 0019 <Electronically signed by Ellis Tsai MD> Cosigner Signature (if applicable): CC: ARLENE Carlisle ~ Signed [facility] Work Phone: [phone]) 217-508609-13-2022 Hospital Discharge instructions Patient Education 07/27/2022 11:52:16 [...] are safe for you. General instructions Take wafo-vzb-morbtrn and prescription medicines only as told by [...] 09/17/2005 Document Revised: 10/13/2018 Document Reviewed: 08/04/2017 [employer] Patient Education 2020 [place]. Follow Up Care 07/11/2022 11:22:15 With:[facility] [phone] skilled Address:Unknown When:1-2 days With:BARBER CARLISLE Address: [address] [facility] [place] [phone] Business (1) When:1-2 days With:BYRON STUBBS, TRACE Sprague, Neurosurgery Address: [address] [facility] [place] [address]- [phone] When:08/10/2022 11:00:00 [facility] 09-13-2022 Note Discharge Instructions Thank you for allowing [facility] to assist you with your healthcare needs. [...] results to FREDY Edmonds Neck Xray at [facility], Ground floor Radiology Dept on 08/10/2022 at [...] Op 08/10/2022 11:00 AM EDT Neurosurgery [address] [id number] Follow Up Appointments Follow Up with BYRON STUBBS, TRACE Sprague, Neurosurgery When 08/10/2022 11:00 AM EDT Where: [address] [address] [phone] Follow Up with [facility] [phone] skilled When Within 1-2 days Follow Up with BARBER CARLISLE When Within 1-2 days Where: [address] [place] [phone] Business (1) The Following Activity and Diet [...] The extended-release form of oxycodone is for tnifmj-vuo-rsjyi treatment of pain and should not be [...] against the law. Stop taking all other ctdslm-gtu-cokli opioid pain medicines when you start taking [...] may report side effects to FDA at 0-211-OJO-4496. What other drugs will affect oxycodone? You [...] drugs may affect oxycodone. This includes prescription odztrvf-sgt-svxiozp medicines, vitamins, and herbal products. Not all [...] to ensure that the information provided by [employer]. ('[employer]') is accurate, up-to-date, and complete, but no guarantee is made to that effect. Drug information contained herein may be time sensitive. [employer] information has been compiled for use by healthcare practitioners and consumers in the [place] and therefore [employer] does not warrant that uses outside of the [place] are appropriate, unless specifically indicated otherwise. [employer] drug information does not endorse drugs, diagnose patients or recommend therapy. [employer] drug information isan informational resource designed to [...] effective or appropriate for any given patient. [employer] does not assume any responsibility for any aspect of healthcare administered with the aid of information [employer] provides. The information contained herein is not intended to cover all possible uses, directions, precautions, warnings, drug interactions, allergic reactions, or adverse effects. If you have questions about the drugs you are taking, check with your doctor, nurse or pharmacist. Copyright 8999-1216 [employer]. Version: 14.02. Revision Date: 12/11/2020. Education Materials [...] are safe for you. General instructions Take taae-vtx-reqppuy and prescription medicines only as told by [...] 09/17/2005 Document Revised: 10/13/2018 Document Reviewed: 08/04/2017 [employer] Patient Education 2020 [employer] Additional Information VACCINATE! IT SAVES LIVES! Members of the community who have not yet received the COVID-19 vaccine and would like to receive it can visit one of [facility] vaccine clinics. There are many vaccine clinic locations within the [facility]. For locations and available times, please visit https://gettheshot.coronavirus.[place].gov/. It is important to note that some COVID mobile vaccine clinics are held outdoors and may be canceled in rainy or stormy conditions. To learn more about pediatric vaccinations (ages 5-11), we invite you to visit the [facility] webpage. https://www.[facility].org/pages/0631-Ldwxu-Vanhpybugcb-Szgosarzac-Zmxlk-Fka stions.htmlTo learn more about the COVID-19 vaccine, we invite you to visit the [employer] website for a list of frequently asked questions. https://[email or web address] Science/assets/Yxoifgjd-avl-Vwaewnoi/cftau-Jocwich-Ozftxullxy _Asked-Questions.pdf [facility] Patient [facility] Access Instructions: Stay connected with your healthcare team and access your personal medical information anytime with the [facility] Patient Portal.If you would like a full copy of your medical records, please contact the [facility] Medical Records Department, Tuesday through Tuesday between 8a.m. and 4:30p.m. Please follow the directions below to access the portal: 1.Access the email account you provided upon registration to the [facility].2.Look for an invitation email from [facility].3.Open the email and access the invitation link: Accept Invitation to [facility]4.Fill in the required quijano to create your account. Sign into [email or web address] with your username and password that you [...] you will allow to register on the [facility] Patient Portal for access to your information. You can also access the [facility] Patient Portal on the [employer] marcy. Simply click on "Health Records" under "HealthMediGain" and then click on the Vaish[facility] logo. [...] Call your local pharmacy or go to http://bit.LIKECHARITY/8U3Ue8d to find one close to you.3.Make use of household items: Use cat litter or old coffee grounds to dispose medications if other options arenot available. Mix your drugs with these household products, seal them in an airtight container andthrow it into the garbage. Call [facility]: [phone] to be sure your drugs can be [...] that I should contact my d octor. Patient/Heating Worker Signature: Date/Time: Relationship to Patient: Witness Name/Signature: Date/Time: [facility] CenterJybghjpf15-73-9884 Note Discharge Instructions Thank you for allowing [...] results to FREDY Ed[facility]s Neck Xray at [facility], [facility] floor Radiology Dept on 08/10/2022 at 10:30am. [...] Op 08/10/2022 11:00 AM EDT Neurosurgery [address] [address] Follow Up Appointments Follow Up with BYRON STUBBS, TRACE Sprague, Neurosurgery When 08/10/2022 11:00 AM EDT Where: [address] [address] [phone] Follow Up with [facility] [phone] skilled When Within 1-2 days Follow Up with BARBER CARLISLE When Within 1-2 days Where: [address] [facility] [place] [address] [phone] Business (1) The Following Activity and Diet [...] to receive it can visit one of [facility] vaccine clinics. There are many vaccine clinic locations within the [facility]. For locations and available times, please visit https://gettheshot.coronavirus.[place].gov/. It is important to note that some COVID mobile vaccine clinics are held outdoors and may be canceled in rainy or stormy conditions. To learn more about pediatric vaccinations (ages 5-11), we invite you to visit the [facility] webpage. https://www.[facility].org/pages/4644-Mdpem-Rptfctoirdc-Fhkxewplzk-Aobhx-Pus stions.htmlTo learn more about the COVID-19 vaccine, we invite you to visit the [facility] website for a list of frequently asked questions. https://[email or web address]/assets/Wabqikrm-eqt-Ijlpbjpa/eiqaj-Mtjiurq-Rdqlcplzyi _Asked-Questions.pdf [facility] Patient Portal Access Instructions: Stay connected with your healthcare team and access your personal medical information anytime with the [facility] Patient Portal.If you would like a full copy of your medical records, please contact the [facility] Medical Records Department, Tuesday through Tuesday between 8a.m. and 4:30p.m. Please follow the directions below to access the portal: 1.Access the email account you provided upon registration to the hospital.2.Look for an invitation email from [facility].3.Open the email and access the invitation link: Accept Invitation to [facility]4.Fill in the required quijano to create your account. Sign into www.[email or web address] Science with your username and password that you [...] you will allow to register on the [facility] Patient Portal for access to your information. You can also access the [facility] Patient Portal on the [employer]. Simply click on "Health Records" under "HealthData" and then click on the [employer] logo. HOW TO SAFELY DISPOSE OF PRESCRIPTION [...] Call your local pharmacy or go to [email or web address].[email or web address]/[email or web address] to find one close to you.3.Make use of household items: Use cat litter or old coffee grounds to dispose medications if other options arenot available. Mix your drugs with these household products, seal them in an airtight container andthrow it into the garbage. Call [facility]: [phone] to be sure your drugs can be [...] that I should contact my d zulmaor. Patient/Heating Worker Signature: Date/Time: Relationship to Patient: Witness Name/Signature: Date/Time: [facility] CenterSspxjxqh02-48-3057 Note Discharge Instructions Thank you for allowing [...] results to FREDY Edmonds Neck Xray at [facility], Ground floor Radiology Dept on 08/10/2022 at [...] Op 08/10/2022 11:00 AM EDT Neurosurgery [address] [address] Follow Up Appointments Follow Up with BYRON STUBBS, TRACE Sprague, Neurosurgery When 08/10/2022 11:00 AM EDT Where: [address] [phone] Follow Up with [facility] [phone] skilled When Within 1-2 days Follow Up with [facility] When Within 1-2 days Where: [address] [place] [address] [phone] Business (1) The Following Activity and Diet [...] to receive it can visit one of [facility] vaccine clinics. There are many vaccine clinic locations within the [facility]. For locations and available times, please visit https://[email or web address].[place].[facility]/. It is important to note that some COVID mobile vaccine clinics are held outdoors and may be canceled in rainy or stormy conditions. To learn more about pediatric vaccinations (ages 5-11), we invite you to visit the [facility] webpage. https://www.[facility].org/pages/8124-Awiwm-Zosjsgxvjef-Vhqajyjixb-Vnqcs-Ngz stions.htmlTo learn more about the COVID-19 vaccine, we invite you to visit the [facility] website for a list of frequently asked questions. https://[email or web address]/assets/Xtaxeajy-vwv-Yuiwbdgf/onftl-Eyotzpk-Srnupobuzf _Asked-Questions.pdf [facility] Patient Portal Access Instructions: Stay connected with your healthcare team and access your personal medical information anytime with the [facility] Patient Portal.If you would like a full copy of your medical records, please contact the [facility] Medical Records Department, Tuesday through Tuesday between 8a.m. and 4:30p.m. Please follow the directions below to access the portal: 1.Access the email account you provided upon registration to the [facility].2.Look for an invitation email from [facility].3.Open the email and access the invitation link: Accept Invitation to [employer]4.Fill in the required quijano to create your account. Sign into www.Narrative Science with your username and password that you [...] you will allow to register on the [employer] Patient Portal for access to your information. You can also access the [employer] Patient Portal on the [employer]. Simply click on "Health Records" under "VacationFutures" and then click on the [employer] logo. HOW TO SAFELY DISPOSE OF PRESCRIPTION [...] Call your local pharmacy or go to [email or web address].[email or web address]/[email or web address] to find one close to you.3.Make use of household items: Use cat litter or old coffee grounds to dispose medications if other options arenot available. Mix your drugs with these household products, seal them in an airtight container andthrow it into the garbage. Call [facility]: [phone] to be sure your drugs can be [...] that I should contact my d octor. Patient/Heating Worker Signature: Date/Time: Relationship to Patient: Witness Name/Signature: Date/Time: [facility] CenterQarcykoy12-85-9853 Note Date of Service 07/26/2022 Neurosurgical CC: Unstable cervical spine injury, post repair POD #13, C2-C7 posterior cervical decompressive laminectomy and C2-T2 posterior cervical instrumented fusion Patient has no new complaints today. She is motivated to mobilize. She is asking when able to be discharged home. I explained she will need [facility] care, than goal with home-going. Admits to [...] worsening weakness, remains with slight weakness left manager sas strength and numbness in left hand. Weight [...] fracture of C6 with extension distraction fracture C6-D9behkx no change in alignment. XR Spine Cervical [...] NITA MADERA APRN-SILVINO on 07/26/2022 06:15 AM [facility] CenterAjqrgnkn72-09-1448 Note Date of Service 07/25/2022 Neurosurgical CC: Unstable cervical spine injury, post repair POD #12, C2-C7 posterior cervical decompressive laminectomy and C2-T2 posterior cervical instrumented fusion Patient remains in the hospital awaiting precertification for [facility] facility No acute events overnight. Patient has [...] fracture of C6 with extension distraction fracture C6-E4rpwnr no change in alignment. XR Spine Cervical [...] NITA MADERA APRN-SILVINO on 07/25/2022 05:40 AM [facility] CenterNafmemjv70-18-1708 Note Date of Service 07/23/2022 Patient reviewed [...] fracture of C6 with extension distraction fracture C6-L0lrzoy no change in alignment. XR Chest 1 [...] to the office visit Discussed case with nurse licensed practical. Aware patient remains ready for discharge. Digitally Signed by NITA MADERA APRN-SERVICE SHOP FOREMAN on 07/24/2022 11:41 AM [facility] CenterMolphqtu83-07-6045 Note Chief Complaint Pain Subjective Pain under [...] RUBIO MD FACP on 07/23/2022 04:02 PM [facility] CenterRyfzxjjn36-02-2697 Note Date of Service 07/23/2022 Patient reviewed [...] nystatin powder 100,000 units/g 15 Gram(s) 1 mracy, Topical, AsDirected pantoprazole 40 mg EC tablet [...] fracture of C6 with extension distraction fracture C6-D8fkwmp no change in alignment. XR Spine Cervical [...] by NITA MADERA on 07/23/2022 06:18 AM [facility] CenterWdlxdewk54-61-5407 Note Date of Service 07/23/2022 Patient reviewed [...] fracture of C6 with extension distraction fracture C6-X3pmjel no change in alignment. XR Spine Cervical [...] NITA MADERA APRN-SILVINO on 07/23/2022 06:18 AM [facility] CenterRunymlgn89-65-3901 Note Chief Complaint hypotension Subjective Patient was [...] EDT Digitally Signed by FABIANO RUBIO MD [facility] on 07/22/2022 08:16 PM [facility] CenterWupqxgny83-96-2236 Neurological surgery Progress note Date of Service [...] AM [1] [1] Discharge Summary; ARYAN VAZ MATCHER OFFBEARER-SERVICE SHOP FOREMAN 07/21/2022 07:15 EDT Digitally Signed by NITA MADERA APRN-SERVICE SHOP FOREMAN on 07/22/2022 09:56 AM [facility] CenterCzusoiuz51-43-0287 Discharge summary Date of Service 07/21/2022 Discharge Diagnosis 1. S/P fall, resulting in C6-7 distraction injury with bilateral pedicle fractures ([id number] - PNED) 2. S/P C2-C7 decompressive laminectomy, C2-T2 posterior bone screw/merari fixation and fusion ([id number] - PNED) 3. DM2 (diabetes mellitus, type [...] and face. She was evaluated in the [facility] emergency department, where she was [...] She is ready to be discharged to [facility]. Her discharge instructions and restrictions been provided to [facility]. Her follow-up appointment has been arranged. Allergies [...] fracture of C6 with extension distraction fracture C6-F3pyxux no change in alignment. XR Chest 1 [...] 09:30 AM EDT Where: [address] [facility] [address] [facility] [address] [phone] Follow Up Appointments See above Follow Up [...] Score No qualifying data available. Discharge Disposition [facility] Information Provided To Patient and [facility] Time Spent 15 min Digitally Signed by ARYAN VAZ on 07/21/2022 08:46 AM Digitally Signed by TRACE MATTHEWS MD on 07/21/2022 11:25 AM [facility] CenterUcktqetr85-12-7969 Discharge summary Date of Service 07/21/2022 Discharge Diagnosis 1. S/P fall, resulting in C6-7 distraction injury with bilateral pedicle fractures ([id number] - PNED) 2. S/P C2-C7 decompressive laminectomy, C2-T2 posterior bone screw/merari fixation and fusion ([id number] - PNED) 3. DM2 (diabetes mellitus, type [...] and face. She was evaluated in the [facility] emergency department, where she was [...] She is ready to be discharged to [facility]. Her discharge instructions and restrictions been provided to [facility]. Her follow-up appointment has been arranged. Allergies NKA Procedures S/P C2 to C7 decompressive laminectomy, C2 to T2 posterior bone screw/merari fixation (Infinity; Medtronic) with autograft/allograft (Infuse; Medtronic) fusion with navigation and intraoperative SSEP, MEP and EMG monitoring- Consults Consult to Physician - Ordered -- 07/11/22 14:17:00 EDT, VAISHALI IPKE (For Consultation Assignment Only NO other Orders), [...] fracture of C6 with extension distraction fracture C6-K9epoba no change in alignment. XR Chest 1 [...] 09:30 AM EDT Where: [address] [facility] [address] [place] [phone] Follow Up Appointments See above Follow Up [...] Score No qualifying data available. Discharge Disposition [facility] Information Provided To Patient and [facility] Time Spent 15 min Digitally Signed by ARYAN VAZ on 07/21/2022 08:46 AM Digitally Signed by TRACE MATTHEWS MD on 07/21/2022 11:25 AM [facility] CenterFhinyemg75-13-2570 Discharge summary Date of Service 07/21/2022 Discharge Diagnosis 1. S/P fall, resulting in C6-7 distraction injury with bilateral pedicle fractures ([id number] - PNED) 2. S/P C2-C7 decompressive laminectomy, C2-T2 posterior bone screw/merari fixation and fusion ([id number] - PNED) 3. DM2 (diabetes mellitus, type [...] and face. She was evaluated in the [facility] emergency department, where she was [...] She is ready to be discharged to [facility]. Her discharge instructions and restrictions been provided to [facility]. Her follow-up appointment has been arranged. Allergies [...] fracture of C6 with extension distraction fracture C6-Q1msxhj no change in alignment. XR Chest 1 [...] When 07/27/2022 09:30 AM EDT Where: [address] [facility] [address] [place] [phone] Follow Up Appointments See above Follow Up [...] Score No qualifying data available. Discharge Disposition [facility] Information Provided To Patient and [facility] Time Spent 15 min Digitally Signed by ARYAN VAZ on 07/21/2022 08:46 AM Digitally Signed by TRACE MATTHEWS MD on 07/21/2022 11:25 AM [facility] CenterTjwvmulc68-41-4748 Note Date of Service 07/21/22 Chief Complaint Weakness Subjective Patient is a very pleasant 71-year-old female with a past medical history significant for hypertension, obesity, hyperlipidemia, COPD, severe restrictive airway disease follows with [facility], noninsulin-dependent type 2 diabetes, venous insufficiency, goiter, GERD, chronic back pain and hypoxic respiratory failure wearing 2 L oxygen via nasal cannula continuous at home. Patient originally presented to [facility] emergency department on July 11, 2022. Patient sustained a mechanical fall over her walker landing on the left side of her face. [facility]. Patient was noted to have significant cervical spine injury and transferred to [facility] emergency department for further evaluation. Patient was [...] decompressive laminectomy, C2 to T2 posterior bone screw/merair fixation and fusion. Patient appears to be doing well postoperatively. Postoperative care per primary/neurosurgery team. Acute right soleal vein-DVT below the knee. Recommend repeat right lower extremity venous Doppler in 1 week and then again in 4 weeks. Results to be sent to patient's primary care physician covering provider at [facility]. Continue home medication. Blood glucose checks [...] therapy involved. Recommending patient be discharged to [facility] facility. Patient is agreeable to discharge to [facility] facility. Discharge per primary team. At this [...] by JOANNA TOMLINSON on 07/21/2022 02:49 PM [facility] CenterDygyaiek01-22-3885 Discharge summary Date of Service 07/21/2022 Discharge Diagnosis 1. S/P fall, resulting in C6-7 distraction injury with bilateral pedicle fractures ([id number] - PNED) 2. S/P C2-C7 decompressive laminectomy, C2-T2 posterior bone screw/merari fixation and fusion ([id number] - PNED) 3. DM2 (diabetes mellitus, type [...] and face. She was evaluated in the [facility] emergency department, where she was [...] She is ready to be discharged to [facility]. Her discharge instructions and restrictions been provided to [facility]. Her follow-up appointment has been arranged. Allergies [...] fracture of C6 with extension distraction fracture C6-K9kanbq no change in alignment. XR Chest 1 [...] When 07/27/2022 09:30 AM EDT Where: [address] [place] [address] [phone] Follow Up Appointments See above Follow Up [...] Score No qualifying data available. Discharge Disposition [facility] Information Provided To Patient and [facility] Time Spent 15 min Digitally Signed by ARYAN VAZ on 07/21/2022 08:46 AM Digitally Signed by TRACE MATTHEWS MD on 07/21/2022 11:25 AM [facility] CenterAqqsnqts26-67-5837 Note Date of Service 07/20/22 Reason for Consultation Medical management Referring Physician Dr. Matthews History of Present Illness Patient is a very pleasant 71-year-old female with a past medical history significant for hypertension, obesity, hyperlipidemia, COPD, severe restrictive airway disease follows with [facility], noninsulin-dependent type 2 diabetes, venous insufficiency, goiter, GERD, chronic back pain and hypoxic respiratory failure wearing 2 L oxygen via nasal cannula continuous at home. Patient originally presented to [facility] emergency department on July 11, 2022. Patient sustained a mechanical fall over her walker landing on the left side of her face. [facility]. Patient was noted to have significant cervical spine injury and transferred to [facility] emergency department for further evaluation. Patient was [...] patient's primary care physician covering provider at [facility]. Continue home medication. Blood glucose checks TID. Sliding scale TID ADA diet Glycemic goal <180 Hypokalemia- resolved. Repeat BMP reviewed. Chronic hypoxic respiratory failure. Patient is tolerating oxygen via nasal cannula. 2 L which is baseline. Acute E. coli urinary tract infection. Patient has completed a full course of ceftriaxone Therapy and occasional therapy consult. Recommending patient be discharged to [facility]. Patient is agreeable to discharge to [facility]. Discharge per primary team. At this [...] by JOANNA TOMLINSON on 07/20/2022 01:37 PM [facility] CenterHkrpdmct91-52-7109 Neurological surgery Progress note Date of Service 07/20/2022 Chief Complaint S/P C2 to C7 decompressive laminectomy, C2 to T2 posterior bone screw/merari fixation (Infinity; Medtronic) with autograft/allograft (Infuse; Medtronic) fusion with navigation and intraoperative SSEP, MEP and EMG ygagbtkubn-ivce-fk day #7. This is a 71-year-old female, who sustained an unstable C6-7 fracture/dislocation status post falling over her walker and landing on the left side of her body and face. She was evaluated in the [facility] emergency department, where she was [...] TRACE MATTHEWS MD on 07/20/2022 10:34 AM [facility] CenterGcgcptze18-24-0174 Progress note Date of Service July 19, [...] TRACE MATTHEWS MD on 07/19/2022 09:14 AM [facility] CenterQevzyerk42-27-9917 Note Date of Service 07/18/2022 Split/shared visit [...] completed, have provided recommendations for skilled rehab. GUIDE TOUR to assist with discharge planning. ICU team following for medical and pulmonary management; appreciate their support and assistance incare of patient. Please refer to Dr. Mccallum's addendum for further details. [1] VL Venous US/Doppler Both Legs(for DVT); 07/18/2022 11:00 EDT Digitally Signed by PELON RUIZ APRN-SILVINO on 07/18/2022 04:44 PM [facility] CenterIgzbqreu47-44-5180 Note Date of Service 07/18/2022 Split/shared visit [...] completed, have provided recommendations for skilled rehab. GUIDE TOUR to assist with discharge planning. ICU team following for medical and pulmonary management; appreciate their support and assistance incare of patient. Please refer to Dr. Mccallum's addendum for further details. [1] VL Venous US/Doppler Both Legs(for DVT); 07/18/2022 11:00 EDT Digitally Signed by PELON RUIZ on 07/18/2022 04:44 PM [facility] CenterJwmztiiw33-27-5869 Note Date of Service 07/18/2022 Split/shared visit [...] completed, have provided recommendations for skilled rehab. GUIDE TOUR to assist with discharge planning. ICU team following for medical and pulmonary management; appreciate their support and assistance incare of patient. Please refer to Dr. Mccallum's addendum for further details. [1] VL Venous US/Doppler Both Legs(for DVT); 07/18/2022 11:00 EDT Digitally Signed by PELON RUIZ on 07/18/2022 04:44 PM [facility] CenterZoztworm36-26-3624 Note Date of Service 07/18/2022 Split/shared visit [...] completed, have provided recommendations for skilled rehab. GUIDE TOUR to assist with discharge planning. ICU team following for medical and pulmonary management; appreciate their support and assistance incare of patient. Please refer to Dr. Mccallum's addendum for further details. [1] VL Venous US/Doppler Both Legs(for DVT); 07/18/2022 11:00 EDT Digitally Signed by PELON RUIZ on 07/18/2022 04:44 PM [facility] CenterWlpmotgu43-16-6815 Note Date of Service 07/18/22 Subjective This [...] KENY VARGAS MD on 07/18/2022 08:05 AM [facility] CenterXfnrwpqy10-96-8222 Note Date of Service 07/17/2022 Split/shared visit [...] lower extremities for assessment of possible DVT/SVT. [employer] Att[employer] following for medical and pulmonary management; appreciate their support and assistancein care of patient. Please refer to Dr. Mccallum's addendum for further details. Dr Lerner like patient to remain in ICU until Doppler ultrasounds have been completed. Further instructions will be provided at that time. Digitally Signed by PELON RUIZ on 07/17/2022 11:16 AM [facility] CenterLlbrvuqn53-60-0508 Note Date of Service 07/17/22 Subjective This [...] KENY VARGAS MD on 07/17/2022 08:39 AM [facility] CenterSsvztnkk62-14-2527 Note Date of Service 07/17/2022 Split/shared visit [...] lower extremities for assessment of possible DVT/SVT. [employer] Attendant following for medical and pulmonary management; appreciate their support and assistancein care of patient. Please refer to Dr. Mccallum's addendum for further details. Dr Lerner like patient to remain in ICU until Doppler ultrasounds have been completed. Further instructions will be provided at that time. Digitally Signed by PELON RUIZ on 07/17/2022 11:16 AM [facility] CenterSbuxkyfm20-74-4566 Neurological surgery Progress note Date of Service 07/16/2022 Chief Complaint S/P C2 to C7 decompressive laminectomy, C2 to T2 posterior bone screw/merari fixation (Infinity; Medtronic) with autograft/allograft (Infuse; Medtronic) fusion with navigation and intraoperative SSEP, MEP and EMG [id number] day #3. This is a 71-year-old female, who sustained an unstable C6-7 fracture/dislocation status post falling over her walker and landing on the left side of her body and face. She was evaluated in the [facility] emergency department, where she was [...] neurosurgery to be notified to further evaluate. [employer] Att[employer] following for medical and pulmonary management. Time Spent 15 min Digitally Signed by ARYAN VAZ APRN-SILVINO on 07/16/2022 12:12 PM [facility] CenterLshsxgya34-54-0693 Neurological surgery Progress note Date of Service 07/16/2022 Chief Complaint S/P C2 to C7 decompressive laminectomy, C2 to T2 posterior bone screw/merari fixation (Infinity; Medtronic) with autograft/allograft (Infuse; Medtronic) fusion with navigation and intraoperative SSEP, MEP and EMG [id number] day #3. This is a 71-year-old female, who sustained an unstable C6-7 fracture/dislocation status post falling over her walker and landing on the left side of her body and face. She was evaluated in the [facility] emergency department, where she was [...] brace at all times. -Likely transfer to the medical center tomorrow. Dr. Lerner would prefer to wait 5 days post-op to start chemical DVT prophylaxis. Will obtain LE dopplars on Tuesday and then likely clear patient to start Heparin sq. -In meantime continue SCDS. -Continue measuring thigh and calf bilateral twice a day and if increases in size by 1cm neurosurgery to be notified to further evaluate. [employer] Att[employer] following for medical and pulmonary management. Time Spent 15 min Digitally Signed by ARYAN VAZ on 07/16/2022 12:12 PM [facility] CenterLcchterp20-49-3626 Note Date of Service 07/16/2022 Chief Complaint [...] C2C3 so that patient was transferred to [facility] where she was evaluated per neurosurgery [...] ANNE-MARIE MCGRAW MD on 07/16/2022 09:57 AM [facility] CenterMpctofgi02-52-7160 Neurological surgery Progress note Date of Service 07/14/2022 Chief Complaint S/P C2 to C7 decompressive laminectomy, C2 to T2 posterior bone screw/merari fixation (Infinity; Medtronic) with autograft/allograft (Infuse; Medtronic) fusion with navigation and intraoperative SSEP, MEP and EMG kibhtlgziq-wcwo-pr day #1. This is a 71-year-old female, who sustained an unstable C6-7 fracture/dislocation status post falling over her walker and landing on the left side of her body and face. She was evaluated in the [facility] emergency department, where she was found to have a distraction extension fracture at C6/7 with bilateral pedicle fractures. She was transferred to [facility] for Neurosurgery evaluation. Shewas taken to surgery yesterday for a C2-C7 decompressive laminectomy and C2-T2 posterior bone screw/merari fixation and fusion. She does have facial swelling, and therefore remains intubated. Automotive Lot Attendant plan to keep patient intubated today and [...] No edema noted Neurological: See HPI Skin: Asher, warm, and dry. Psychiatric: Mood stable. Cooperative. [...] fracture of C6 with extension distraction fracture C6-U6apduo no change in alignment. XR Chest 1 [...] be extubated tomorrow and can start PT/OT. [employer] Lot Attendant following for medical and pulmonary management. Time Spent 15 min Digitally Signed by ARYAN VAZ on 07/14/2022 11:59 AM [facility] CenterTpuwetze99-91-2636 Neurological surgery Progress note Date of Service 07/15/2022 Chief Complaint S/P C2 to C7 decompressive laminectomy, C2 to T2 posterior bone screw/merari fixation (Infinity; Medtronic) with autograft/allograft (Infuse; Medtronic) fusion with navigation and intraoperative SSEP, MEP and EMG [id number]-dqya-lk day #2. This is a 71-year-old female, who sustained an unstable C6-7 fracture/dislocation status post falling over her walker and landing on the left side of her body and face. She was evaluated in the [facility] emergency department, where she was [...] neurosurgery to be notified to further evaluate. [employer] Attendant following for medical and pulmonary management. Time Spent 15 min Digitally Signed by ARYAN VAZ on 07/15/2022 01:20 PM [facility] CenterJyzlbkwj54-11-1609 Neurological surgery Progress note Date of Service 07/14/2022 Chief Complaint S/P C2 to C7 decompressive laminectomy, C2 to T2 posterior bone screw/merari fixation (Infinity; Medtronic) with autograft/allograft (Infuse; Medtronic) fusion with navigation and intraoperative SSEP, MEP and EMG owathqseud-sfbr-dg day #1. This is a 71-year-old female, who sustained an unstable C6-7 fracture/dislocation status post falling over her walker and landing on the left side of her body and face. She was evaluated in the [facility] emergency department, where she was found to have a distraction extension fracture at C6/7 with bilateral pedicle fractures. She was transferred to [facility] for Neurosurgery evaluation. Shewas taken to surgery yesterday for a C2-C7 decompressive laminectomy and C2-T2 posterior bone screw/merari fixation and fusion. She does have facial swelling, and therefore remains intubated. Autom[employer] Lot Attendant plan to keep patient intubated today and [...] No edema noted Neurological: See HPI Skin: Asher, warm, and dry. Psychiatric: Mood stable. Cooperative. [...] fracture of C6 with extension distraction fracture C6-S2ekwsl no change in alignment. XR Chest 1 [...] be extubated tomorrow and can start PT/OT. [employer] Lot Attendant following for medical and pulmonary management. Time Spent 15 min Digitally Signed by ARYAN VAZ on 07/14/2022 11:59 AM [facility] CenterAlwpgfqo11-01-4050 Neurological surgery Progress note Date of Service 07/15/2022 Chief Complaint S/P C2 to C7 decompressive laminectomy, C2 to T2 posterior bone screw/merari fixation (Infinity; Medtronic) with autograft/allograft (Infuse; Medtronic) fusion with navigation and intraoperative SSEP, MEP and EMG sfqojqkrni-nvzx-oz day #2. This is a 71-year-old female, who sustained an unstable C6-7 fracture/dislocation status post falling over her walker and landing on the left side of her body and face. She was evaluated in the [facility] emergency department, where she was [...] neurosurgery to be notified to further evaluate. [employer] Attendant following for medical and pulmonary management. Time Spent 15 min Digitally Signed by ARYAN VAZ on 07/15/2022 01:20 PM [facility] CenterUgqaajpp50-85-6587 Note Date of Service 07/15/2022 Subjective 71 [...] C2C3 so that patient was transferred to [facility] where she was evaluated per neurosurgery [...] DARLING EDWARDS MD on 07/15/2022 08:56 AM [facility] CenterUcunyrwk07-95-6456 Note ORIGINAL EXAMINATION: ONE XRAY VIEW OF [...] 07/15/2022 6:01:36 AM Ordering Provider: OSEI STOVER [facility] CenterRdjamjyl04-78-7473 Note ORIGINAL EXAMINATION: ONE XRAY VIEW OF [...] Sign Date: 07/15/2022 6:01:36 AM Ordering Provider: [facility]08-31-2022 Neurological surgery Progress note Date of Service 07/14/2022 Chief Complaint S/P C2 to C7 decompressive laminectomy, C2 to T2 posterior bone screw/merari fixation (Infinity; Medtronic) with autograft/allograft (Infuse; Medtronic) fusion with navigation and intraoperative SSEP, MEP and EMG dkzljrowti-sowh-iv day #1. This is a 71-year-old female, who sustained an unstable C6-7 fracture/dislocation status post falling over her walker and landing on the left side of her body and face. She was evaluated in the [facility] emergency department, where she was found to have a distraction extension fracture at C6/7 with bilateral pedicle fractures. She was transferred to [facility] for Neurosurgery evaluation. Shewas taken to surgery yesterday for a C2-C7 decompressive laminectomy and C2-T2 posterior bone screw/merari fixation and fusion. She does have facial swelling, and therefore remains intubated. [employer] Attendant plan to keep patient intubated today and [...] No edema noted Neurological: See HPI Skin: Asher, warm, and dry. Psychiatric: Mood stable. Cooperative. [...] fracture of C6 with extension distraction fracture C6-F8abngw no change in alignment. XR Chest 1 [...] be extubated tomorrow and can start PT/OT. Autom[employer] Lot Attendant following for medical and pulmonary management. Time Spent 15 min Digitally Signed by ARYAN VAZ on 07/14/2022 11:59 AM [facility] CenterPvyvlbdj14-62-3704 Note ORIGINAL EXAMINATION: ONE SUPINE XRAY VIEW(S) [...] Sign Date: 07/14/2022 9:41:47 AM Ordering Provider: [facility]08-31-2022 Note ORIGINAL EXAMINATION: ONE SUPINE XRAY [...] Sign Date: 07/14/2022 9:41:47 AM Ordering Provider: [facility]08-31-2022 Note Date of Service 07/14/2022 Chief Complaint [...] C2C3 so that patient was transferred to [facility] where she was evaluated per neurosurgery [...] ANNE-MARIE MCGRAW MD on 07/16/2022 09:53 AM [address]31-2022 Note ORIGINAL EXAMINATION: CT OF THE [...] 07/14/2022 6:52:00 AM Ordering Provider: NITA MADERA [facility] CenterIuhzuyrr08-31-2481 Note ORIGINAL EXAMINATION: ONE XRAY VIEW OF [...] Eder Clark MD Preliminary Report By: Mariana Loznao Electronically signed By Eder Clark MD Dictated Date: 07/14/2022 5:52:21 AM Prelim Date: 07/14/2022 5:56:35 AM Sign Date: 07/14/2022 6:00:18 AM Ordering Provider: [facility]08-31-2022 Note ORIGINAL EXAMINATION: ONE XRAY VIEW OF [...] Sign Date: 07/14/2022 6:00:18 AM Ordering Provider: [facility]08-31-2022 Note ORIGINAL EXAMINATION: CT OF THE CERVICAL [...] Sign Date: 07/14/2022 6:52:00 AM Ordering Provider: [facility]08-31-2022 Note ORIGINAL EXAMINATION: SPOT FLUOROSCOPIC IMAGES 07/13/2022 [...] 07/14/2022 4:26:28 AM Ordering Provider: MARYCHUY LERNER [facility] CenterYttzycpb36-34-1289 Note ORIGINAL EXAMINATION: ONE XRAY VIEW OF [...] 07/13/2022 9:06:27 PM Ordering Provider: [place] COOL [facility] CenterZxcuwvfj28-49-7957 Note ORIGINAL EXAMINATION: ONE XRAY VIEW OF [...] Date: 07/13/2022 9:06:27 PM Ordering Provider: [place] [facility]OL[facility] CenterKdnqijxt68-16-6130 Note ORIGINAL EXAMINATION: SPOT FLUOROSCOPIC IMAGES 07/13/2022 [...] Date: 07/14/2022 4:26:28 AM Ordering Provider: MARYCHUY [facility]Salem [facility] HospitalClddfgca39-82-4069 Note Date of Service 07/13/2022 Split/shared visit with Dr. Jaswant MD Neurosurgical CC: Unstable C6-7 fracture or dislocation post fall. 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 Patient transferred to [place] ED. Stat MRI completed and patient admitted [...] with weakness of the left tricep/bicep and manager sas. Negative Pierre's. She does have 3 beats [...] pain post fall. She was taken to [facility] by EMS found to have cervical spine injury and transferred to [facility]. Stat MRI completed and patient was admitted [...] by NITA MADERA on 07/13/2022 05:50 AM [facility] CenterGmpfflyk99-13-4939 Note ORIGINAL EXAMINATION: TWO XRAY VIEWS OF [...] Sign Date: 07/13/2022 3:47:11 PM Ordering Provider: [facility]08-30-2022 Note ORIGINAL EXAMINATION: TWO XRAY VIEWS [...] Sign Date: 07/13/2022 3:47:11 PM Ordering Provider: [facility]08-30-2022 Anesthesiology Consult note Patient: POLI RAMIREZ [...] a prior cardiac history including a previous NV, however, she has not had any interventions, [...] Constipation NS 1,000 mL: 50 mL/hr, Intravenous Somers 325- 5 mg oral tablet: 1 tab(s), [...] list: Medical Chronic anemia / SNOMED CT 762289278 / Confirmed Chronic back pain / SNOMED CT 192689857 / Confirmed COPD / SNOMED CT 74291816 / Confirmed Hypertension, essential / SNOMED CT 54746160 / Confirmed GERD (gastroesophageal reflux disease) / SNOMED CT [id number] / Confirmed Goiter / SNOMED CT 8340149 / Confirmed Hyperlipidemia / SNOMED CT 72883212 / Confirmed Incontinence of urine / SNOMED CT 5652610083 / Confirmed, Active Problems (30) Anemia Arthritis [...] incontinence Histories Past Medical History: Active COPD (39465772) Chronic back pain (825222863) Resolved H/O hypercholesterolemia (4928795584): Resolved. Hypernatremia (5223577000): Resolved. Family History: Heart disease Father Brother Arthritis Daughter Stroke Mother Cancer Sister HTN - Hypertension Mother GERD (gastroesophageal reflux disease) Daughter Diverticulitis Daughter Procedure history: None (385683927). Appendectomy (925899113). Comments: 08/11/2017 12:13 SHAMA BOLTON left water taken off Tubal ligation (309051059). Cholecystectomy (87101200). Arthroscopic knee operation (4611823446). Comments: 12/24/2019 13:16 SHAMA Gabriel right Lumpectomy of breast (2173673935). Comments: 12/24/2019 13:16 SHAMA Gabriel left Phacoemulsification of cataract with intraocular lens implantation (4426182880). Comments: 12/24/2019 13:16 SHAMA Gabriel both eyes Colonoscopy (473709615). Esophagogastroduodenoscopy (215564498). Cardiac catheter (7134071666). Comments: 12/24/2019 13:17 SHAMA Gabriel years ago [...] kg (Modified) Weight Lbs 217.1 lb (Modified) [place] Body Weight 56.91 kg BSA Admission 2.05 [...] On and Limits Checked Nail Bed Color Asher Capillary Refill < 2 seconds Heart Sounds [...] grimaces Skin Symptoms Bruising All Extremity Description Asher Skin Temperature Warm Temperature All Extremities Warm Skin Description Asher, Normal for ethnicity Skin Integrity Not intact Skin Turgor Non-Elastic Mucous Membrane Color Asher Mucous Membrane Description Moist Nose Anterior Skin [...] Zeke Obeys simple commands Best Verbal Response [place] Oriented Zeke Coma Score 14 YANICK Yes [...] Appropriate, Calm, Cooperative Orientation 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 Patient Dressed In Hospital gown [...] On and Limits Checked Nail Bed Color Asher Capillary Refill < 2 seconds Heart Sounds ICU S1S2 Heart Rhythm Regular Dorsalis Pedis Pulse, Left 1+ Thready Dorsalis Pedis Pulse, Right 1+ Thready Posttibial Pulse, Left 1+ Thready Posttibial Pulse, Right 1+ Thready Radial Pulse, Left 2+ Normal Radial Pulse, Right 2+ Normal Edema Generalized None Cardiac Rhythm Sinus tachycardia Monitoring Lead II, V1/MCL1 ID Interval 0.16 second(s) QRS Duration 0.09 second(s) [...] grimaces Skin Symptoms Bruising All Extremity Description Asher Skin Temperature Warm Temperature All Extremities Warm Skin Description Asher, Normal for ethnicity Skin Integrity Not intact Skin Turgor Non-Elastic Mucous Membrane Color Asher Mucous Membrane Description Moist Nose Anterior Skin [...] Response Zeke To voice Best Motor Response [place] Obeys simple commands Best Verbal Response [place] Oriented Zeke Coma Score 14 YANICK Yes [...] On and Limits Checked Nail Bed Color Asher Capillary Refill < 2 seconds Heart Sounds [...] grimaces Skin Symptoms Bruising All Extremity Description Asher Skin Temperature Warm Temperature All Extremities Warm Skin Description Asher, Normal for ethnicity Skin Integrity Not intact Skin Turgor Elastic Mucous Membrane Color Asher Mucous Membrane Description Moist Nose Anterior Skin [...] Arousable with minimal stimulation Eye Opening Response [place] To voice Best Motor Response Zeke Obeys simple commands Best Verbal Response Zeke Oriented [place] Coma Score 14 YANICK Yes Left Pupil [...] Mode Order Detail Bed Nurse and Monitor Splunk Architect Details Form Splunk Architect Details Form 07/13/2022 0:40 EDT Notify date/time [...] On and Limits Checked Nail Bed Color Asher Capillary Refill < 2 seconds Heart Sounds ICU S1S2 Heart Rhythm Regular Dorsalis Pedis Pulse, Left 1+ Thready Dorsalis Pedis Pulse, Right 1+ Thready Posttibial Pulse, Left 1+ Thready Posttibial Pulse, Right 1+ Thready Radial Pulse, Left 2+ Normal Radial Pulse, Right 2+ Normal Edema Generalized None Cardiac Rhythm Sinus tachycardia Monitoring Lead II, V1/MCL1 ID Interval 0.13 second(s) QRS Duration 0.08 second(s) [...] grimaces Skin Symptoms Bruising All Extremity Description Asher Skin Temperature Warm Temperature All Extremities Warm Skin Description Asher, Normal for ethnicity Skin Integrity Not intact Skin Turgor Non-Elastic Mucous Membrane Color Asher Mucous Membrane Description Moist Nose Anterior Skin [...] Arousable with minimal stimulation Eye Opening Response [place] To voice Best Motor Response Zeke Obeys simple commands Best Verbal Response Zeke Oriented [place] Coma Score 14 YANICK Yes Left Pupil [...] Appropriate, Calm, Cooperative Orientation Oriented x 4 [facility] CenterPgnovpbt91-08-4077 Note Date of Service 07/13/2022 Split/shared visit with Dr. Jaswant MD Neurosurgical CC: Unstable C6-7 fracture or dislocation post fall. 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 Patient transferred to [place] ED. Stat MRI completed and patient admitted [...] with weakness of the left tricep/bicep and manager sas. Negative Pierre's. She does have 3 beats [...] pain post fall. She was taken to [facility] by EMS found to have cervical spine injury and transferred to [place] ED. Stat MRI completed and patient was [...] by NITA MADERA on 07/13/2022 05:50 AM [facility] CenterAstwctts22-90-4495 Anesthesiology Consult note* ALEJANDRA HERNANDEZ MD: PERFORM, SIGN, VERIFY Event Display: Anesthesiology Consultation Authored Date: [id number] Patient: POLI RAMIREZ Age: 71 years Sex: [...] a prior cardiac history including a previous NV, however, she has not had any interventions, [...] Constipation NS 1,000 mL: 50 mL/hr, Intravenous Somers 325- 5 mg oral tablet: 1 tab(s), [...] list: Medical Chronic anemia / SNOMED CT 674132259 / Confirmed Chronic back pain / SNOMED CT 664691995 / Confirmed COPD / SNOMED CT 86119257 / Confirmed Hypertension, essential / SNOMED CT 79665519 / Confirmed GERD (gastroesophageal reflux disease) / SNOMED CT [id number] / Confirmed Goiter / SNOMED CT 7913976 / Confirmed Hyperlipidemia / SNOMED CT 27282598 / Confirmed Incontinence of urine / SNOMED CT 3548716727 / Confirmed, Active Problems (30) Anemia Arthritis [...] incontinence Histories Past Medical History: Active COPD (78684688) Chronic back pain (421965248) Resolved H/O hypercholesterolemia (1517606182): Resolved. Hypernatremia (6222424724): Resolved. Family History: Heart disease Father Brother Arthritis Daughter Stroke Mother Cancer Sister HTN - Hypertension Mother GERD (gastroesophageal reflux disease) Daughter Diverticulitis Daughter Procedure history: None (957975317). Appendectomy (890772183). Comments: 08/11/2017 12:13 SHAMA BOLTON left water taken off Tubal ligation (047738256). Cholecystectomy (34156728). Arthroscopic knee operation (1098462654). Comments: 12/24/2019 13:16 SHAMA Gabriel right Lumpectomy of breast (5917931614). Comments: 12/24/2019 13:16 SHAMA Gabriel left Phacoemulsification of cataract with intraocular lens implantation (0569085892). Comments: 12/24/2019 13:16 SHAMA Gabriel both eyes Colonoscopy (993514504). Esophagogastroduodenoscopy (461551284). Cardiac catheter (2692096346). Comments: 12/24/2019 13:17 SHAMA Gabriel years ago [...] kg (Modified) Weight Lbs 217.1 lb (Modified) [place] Body Weight 56.91 kg BSA Admission 2.05 [...] On and Limits Checked Nail Bed Color Asher Capillary Refill < 2 seconds Heart Sounds [...] grimaces Skin Symptoms Bruising All Extremity Description Asher Skin Temperature Warm Temperature All Extremities Warm Skin Description Asher, Normal for ethnicity Skin Integrity Not intact Skin Turgor Non-Elastic Mucous Membrane Color Asher Mucous Membrane Description Moist Nose Anterior Skin [...] Arousable with minimal stimulation Eye Opening Response [place] To voice Best Motor Response Zeke Obeys simple commands Best Verbal Response [place] Oriented Zeke Coma Score 14 YANICK Yes [...] Appropriate, Calm, Cooperative Orientation 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 Patient Dressed In Hospital gown [...] On and Limits Checked Nail Bed Color Asher Capillary Refill < 2 seconds Heart Sounds ICU S1S2 Heart Rhythm Regular Dorsalis Pedis Pulse, Left 1+ Thready Dorsalis Pedis Pulse, Right 1+ Thready Posttibial Pulse, Left 1+ Thready Posttibial Pulse, Right 1+ Thready Radial Pulse, Left 2+ Normal Radial Pulse, Right 2+ Normal Edema Generalized None Cardiac Rhythm Sinus tachycardia Monitoring Lead II, V1/MCL1 ID Interval 0.16 second(s) QRS Duration 0.09 second(s) [...] grimaces Skin Symptoms Bruising All Extremity Description Asher Skin Temperature Warm Temperature All Extremities Warm Skin Description Asher, Normal for ethnicity Skin Integrity Not intact Skin Turgor Non-Elastic Mucous Membrane Color Asher Mucous Membrane Description Moist Nose Anterior Skin [...] Arousable with minimal stimulation Eye Opening Response [place] To voice Best Motor Response [place] Obeys simple commands Best Verbal Response Zeke [...] On and Limits Checked Nail Bed Color Asher Capillary Refill < 2 seconds Heart Sounds [...] grimaces Skin Symptoms Bruising All Extremity Description Asher Skin Temperature Warm Temperature All Extremities Warm Skin Description Asher, Normal for ethnicity Skin Integrity Not intact Skin Turgor Elastic Mucous Membrane Color Asher Mucous Membrane Description Moist Nose Anterior Skin [...] simple commands Best Verbal Response Zeke Oriented [place] Coma Score 14 YANICK Yes Left Pupil [...] Mode Order Detail Bed Nurse and Monitor Splunk Architect Details Form Splunk Architect Details Form 07/13/2022 0:40 EDT Notify date/time [...] On and Limits Checked Nail Bed Color Asher Capillary Refill < 2 seconds Heart Sounds ICU S1S2 Heart Rhythm Regular Dorsalis Pedis Pulse, Left 1+ Thready Dorsalis Pedis Pulse, Right 1+ Thready Posttibial Pulse, Left 1+ Thready Posttibial Pulse, Right 1+ Thready Radial Pulse, Left 2+ Normal Radial Pulse, Right 2+ Normal Edema Generalized None Cardiac Rhythm Sinus tachycardia Monitoring Lead II, V1/MCL1 ID Interval 0.13 second(s) QRS Duration 0.08 second(s) [...] grimaces Skin Symptoms Bruising All Extremity Description Asher Skin Temperature Warm Temperature All Extremities Warm Skin Description Asher, Normal for ethnicity Skin Integrity Not intact Skin Turgor Non-Elastic Mucous Membrane Color Asher Mucous Membrane Description Moist Nose Anterior Skin [...] Arousable with minimal stimulation Eye Opening Response [place] To voice Best Motor Response [place] Obeys simple commands Best Verbal Response [place] Oriented [place] Coma Score 14 YANICK Yes Left Pupil [...] mL 07/12/2022 22:59 EDT IV Present Present 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 Patient Dressed In Hospital gown [...] On and Limits Checked Nail Bed Color Asher Capillary Refill < 2 seconds Heart Sounds [...] grimaces Skin Symptoms Bruising All Extremity Description Asher Skin Temperature Warm Temperature All Extremities Warm Skin Description Asher, Normal for ethnicity Skin Integrity Not intact Skin Turgor Elastic Mucous Membrane Color Asher Mucous Membrane Description Moist Nose Anterior Skin [...] Arousable with minimal stimulation Eye Opening Response [place] To voice Best Motor Response Zeke Obeys simple commands Best Verbal Response [place] Oriented Zeke Coma Score 14 YANICK Yes [...] Type 0-10 Pain scale Nail Bed Color Asher Capillary Refill < 2 seconds Dorsalis Pedis [...] grimaces Skin Symptoms Bruising All Extremity Description Asher Skin Temperature Warm Temperature All Extremities Warm Skin Description Asher, Normal for ethnicity Skin Integrity Not intact Skin Turgor Elastic Mucous Membrane Color Asher Mucous Membrane Description Moist Nose Anterior Skin [...] Response Zeke To voice Best Motor Response [place] Obeys simple commands Best Verbal Response [place] Oriented Zeke Coma Score 14 YANICK Yes [...] Type 0-10 Pain scale Nail Bed Color Asher Capillary Refill < 2 seconds Heart Rhythm [...] On Skin Symptoms Bruising All Extremity Description Asher Skin Temperature Warm Temperature All Extremities Warm Skin Description Asher, Normal for ethnicity Skin Integrity Not intact Skin Turgor Elastic Mucous Membrane Color Asher Mucous Membrane Description Moist Nose Anterior Skin [...] Response Zeke To voice Best Motor Response [place] Obeys simple commands Best Verbal Response [place] Oriented [place] Coma Score 14 YANICK Yes Left Pupil [...] Mode Order Detail Bed Nurse and Monitor Splunk Architect Details Form Splunk Architect Details Form 07/12/2022 15:18 EDT SN - [...] Type 0-10 Pain scale Nail Bed Color Asher Capillary Refill < 2 seconds Heart Rhythm Regular Dorsalis Pedis Pulse, Left 1+ Thready Dorsalis Pedis Pulse, Right 1+ Thready Posttibial Pulse, Left 1+ Thready Posttibial Pulse, Right 1+ Thready Radial Pulse, Left 2+ Normal Radial Pulse, Right 2+ Normal Edema Generalized None Cardiac Rhythm Bundle branch block Cardiac Rhythm Sinus tachycardia Monitoring Lead II ID Interval 0.13 second(s) QRS Duration 0.12 second(s) [...] On Skin Symptoms Bruising All Extremity Description Asher Skin Temperature Warm Temperature All Extremities Warm Skin Description Asher, Normal for ethnicity Skin Integrity Not intact Skin Turgor Elastic Mucous Membrane Color Asher Mucous Membrane Description Moist Nose Anterior Skin [...] Arousable with minimal stimulation Eye Opening Response [place] Spontaneously Best Motor Response Zeke Obeys simple commands Best Verbal Response Zeke Oriented [place] Coma Score 15 YANICK Yes Left Pupil [...] Type 0-10 Pain scale Nail Bed Color Asher Capillary Refill < 2 seconds Heart Rhythm [...] On Skin Symptoms Bruising All Extremity Description Asher Skin Temperature Warm Temperature All Extremities Warm Skin Description Asher, Normal for ethnicity Skin Integrity Not intact Skin Turgor Elastic Mucous Membrane Color Asher Mucous Membrane Description Moist Continuous IV Infusions NS @ 50ml/hr Forearm Right 18 gauge Peripheral IV Site Condition: No complications Neurological Language Able to speak clearly Neurological Symptoms Numbness Gait Unable to assess Extremity Movement Equal Swallowing Difficulty None Characteristics of Communication Appropriate Characteristics of Speech Clear Facial Symmetry Symmetric Level of Consciousness Arousable with minimal stimulation Eye Opening Response [place] Spontaneously Best Motor Response Zeke Obeys simple [...] Person #2 We May Share PHI Jocy [phone] Designated Person #2 Relationship Daughter Privacy Restrictions Requested None (Modified) Height 165 cm (Modified) Height in inches 65 inch(es) (Modified) Admission Weight 98.7 kg (Modified) Weight Lbs 217.1 lb (Modified) [place] Body Weight 56.91 kg BSA Admission 2.05 [...] Advanced Directives Yes (Modified) Advance Directive Type [place] Declaration (Living Will) (Modified) Advance Directive Location [...] Verbalizes/Nonverbally indicates understanding (Modified) Preferred Written Language Croatian (Modified) Preferred Spoken Language Croatian (Modified) Information Given by Patient (Modified) Patient's [...] Type 0-10 Pain scale Nail Bed Color Asher Capillary Refill < 2 seconds Heart Sounds ICU S1S2 Heart Rhythm Regular Dorsalis Pedis Pulse, Left 1+ Thready Dorsalis Pedis Pulse, Right 1+ Thready Posttibial Pulse, Left 1+ Thready Posttibial Pulse, Right 1+ Thready Edema Generalized None Cardiac Rhythm Bundle branch block Cardiac Rhythm Sinus tachycardia Monitoring Lead II ID Interval 0.14 second(s) QRS Duration 0.12 second(s) [...] On Skin Symptoms Bruising All Extremity Description Asher Skin Temperature Warm Temperature All Extremities Warm Skin Description Asher, Normal for ethnicity Skin Integrity Not intact Skin Turgor Elastic Mucous Membrane Color Asher Mucous Membrane Description Moist Nose Anterior Skin [...] Type 0-10 Pain scale Nail Bed Color Asher Capillary Refill < 2 seconds Dorsalis Pedis [...] On Skin Symptoms Bruising All Extremity Description Asher Skin Temperature Warm Temperature All Extremities Warm Skin Description Asher, Normal for ethnicity Skin Integrity Not intact Skin Turgor Elastic Mucous Membrane Color Asher Mucous Membrane Description Moist Nose Anterior Wound [...] Mode Order Detail Bed Nurse and Monitor Splunk Architect Details Form Splunk Architect Details Form 07/12/2022 8:15 EDT Magnesium Lvl [...] Type 0-10 Pain scale Nail Bed Color Asher Capillary Refill < 2 seconds Heart Sounds ICU S1S2 Heart Rhythm Regular Dorsalis Pedis Pulse, Left 1+ Thready Dorsalis Pedis Pulse, Right 1+ Thready Posttibial Pulse, Left 1+ Thready Posttibial Pulse, Right 1+ Thready Radial Pulse, Left 2+ Normal Radial Pulse, Right 2+ Normal Edema Generalized None Cardiac Rhythm Sinus tachycardia, Bundle branch block Monitoring Lead II, V1/MCL1 ID Interval 0.14 second(s) QRS Duration 0.13 second(s) [...] On Skin Symptoms Bruising All Extremity Description Asher Skin Temperature Warm Temperature All Extremities Warm Skin Description Asher, Normal for ethnicity Skin Integrity Not intact Skin Turgor Elastic Mucous Membrane Color Asher Mucous Membrane Description Moist Nose Anterior Skin [...] Opening Response Zeke Spontaneously Best Motor Response [place] Obeys simple commands Best Verbal Response Zeke Oriented [place] Coma Score 15 YANICK Yes Left Pupil [...] On and Limits Checked Nail Bed Color Asher Capillary Refill < 2 seconds Heart Sounds [...] On Skin Symptoms Bruising All Extremity Description Asher Skin Temperature Warm Skin Description Asher, Normal for ethnicity Skin Integrity Not intact Skin Turgor Elastic Mucous Membrane Color Asher Mucous Membrane Description Moist Nose Anterior Skin Abnormality Type: Abrasion Wound Status: No complications Neurological Language Able to speak clearly, Follows simple commands Neurological Symptoms Numbness Gait Unable to assess Extremity Movement Equal Swallowing Difficulty None Characteristics of Communication Appropriate Characteristics of Speech Clear Facial Symmetry Symmetric Level of Consciousness Arousable with minimal stimulation Eye Opening Response [place] Spontaneously Best Motor Response [place] Obeys simple commands Best Verbal Response [place] Oriented Zeke Coma Score 15 YANICK Yes [...] On and Limits Checked Nail Bed Color Asher Capillary Refill < 2 seconds Heart Sounds [...] On Skin Symptoms Bruising All Extremity Description Asher Skin Temperature Warm Temperature All Extremities Warm Skin Description Asher, Dry Skin Integrity Not intact Skin Turgor Elastic Mucous Membrane Color Asher Mucous Membrane Description Moist Nose Anterior Wound [...] Zeke Obeys simple commands Best Verbal Response [place] Oriented [place] Coma Score 14 YANICK Yes Left Pupil [...] Mode Order Detail Bed Nurse and Monitor Splunk Architect Details Form Splunk Architect Details Form 07/12/2022 0:25 EDT Mechanical VTE Prophylaxis Education Not Done: Task Duplication (Not Done) Sequential Compression Device Form Not Done (Not Done) 07/12/2022 0:08 EDT Primary Pain Intensity 7 HYDROmorphone 0.5 mg mg ondansetron 4 mg mg . Assessment and Plan [place] Society [employer] Anesthesiologists (ASA) physical status classification: [...] ALEJANDRA HERNANDEZ MD on 07/13/2022 07:28 AM [facility] 08-29-2022 Note Date of Service 07/12/2022 Split/shared [...] and equal. Left tricep 2.5/5, bicep 3.5/5, manager sas 4/5, bilateral intrinsics are strong. Negative Pierre's. [...] pain post fall. She was taken to [facility] by EMS found to have cervical spine injury and transferred to [place] ED. Stat MRI completed and patient was [...] 07/11/2022 18:17 EDT Digitally Signed by NITA AMDERA on 07/12/2022 05:53 AM [facility] [id number] Critical care medicine Consult note Date of [...] C2C3 so that patient was transferred to [facility] where she was evaluated per neurosurgery [...] 17 gram(s)= 15 mL, Oral, qDay, PRN Somers 325- 5 mg oral tablet, 1 tab(s), [...] DARLING EDWARDS MD on 07/12/2022 09:57 AM [facility] [id number] Note ORIGINAL EXAMINATION: ONE XRAY VIEW OF [...] 07/12/2022 8:41:07 AM Ordering Provider: TEQUILA YOUNG [facility] [id number] Note Date of Service 07/12/2022 Split/shared visit [...] and equal. Left tricep 2.5/5, bicep 3.5/5, manager sas 4/5, bilateral intrinsics are strong. Negative Pierre's. [...] pain post fall. She was taken to [facility] by EMS found to have cervical spine injury and transferred to [place] ED. Stat MRI completed and patient was [...] by NITA MADERA on 07/12/2022 05:53 AM [facility] [id number] Note ORIGINAL EXAMINATION: ONE XRAY VIEW OF [...] Date: 07/12/2022 8:41:07 AM Ordering Provider: TEQUILA [facility]08-29-2022 Note ORIGINAL EXAMINATION: ONE XRAY VIEW [...] Sign Date: 07/12/2022 7:52:46 AM Ordering Provider: [address]29-2022 Note ORIGINAL EXAMINATION: ONE XRAY VIEW [...] Sign Date: 07/12/2022 7:52:46 AM Ordering Provider: [address]29-2022 Note Date of Service 07/12/2022 Split/shared [...] and equal. Left tricep 2.5/5, bicep 3.5/5, manager sas 4/5, bilateral intrinsics are strong. Negative Pierre's. [...] pain post fall. She was taken to [facility] by EMS found to have cervical spine injury and transferred to [place] ED. Stat MRI completed and patient was [...] by NITA MADERA on 07/12/2022 05:53 AM [facility] [id number] Note ORIGINAL EXAMINATION: ONE XRAY VIEW OF [...] 07/11/2022 7:30:42 PM Ordering Provider: NITAFABBY MADERA [facility] [id number] Note ORIGINAL EXAMINATION: ONE XRAY VIEW OF [...] 07/11/2022 7:28:52 PM Ordering Provider: NITA MADERA [facility] [id number] History and physical note Date of Service 07/11/2022 Chief Complaint Fall, neck pain History of Present Illness Mrs. Ramirez is a 71-year-old female with a past medical history of hypertension, obesity, hyperlipidemia, COPD, severe restrictive airway disease follows with [place] [facility], noninsulin-dependent type 2 diabetes, venous insufficiency, [...] precautions have been maintained. Patient taken to [facility]. She was noted to have a significant cervical spine injury and transferred to [place] ED for further evaluation and trauma work-up. Dr. Matthews was contacted and stat MRI was completed. This shows significant ligamentous disruption, dislocated and distracted fracture of C6-C7. Shalini brace was placed on the patient in the ED by Michelle Haparaadam, myself and ED nurses. Head andneck were [...] strength noted to be unequal. Bicep/tricep and manager sas 3.5/5 on the left, strong on the [...] pain post fall. She was taken to [facility] by EMS found to have cervical spine injury and transferred to [place] ED. Stat MRI completed and patient was [...] completed regarding recommendations for treatment Consult to dental laboratory worker for assistance with medical management and surgical [...] by NITA MADERA on 07/11/2022 06:29 PM [facility] [id number] Note ORIGINAL EXAMINATION: ONE XRAY VIEW OF [...] Date: 07/11/2022 7:30:42 PM Ordering Provider: NITA MADERAOhio[facility] [id number] Evaluation + Plan noteExtracted from: Title:History and Physical Author:SHIRIN MADERA MATCHER [employer] Date:07/11/22 71-year-old female sustained a unwitnessed mechanical fall over her walker landing on left side and face 07/11/2022. Denies LOC. Developed immediate neck pain post fall. She was taken to [facility] by EMS found to have cervical spine injury and transferred to [place] ED. Stat MRI completed and patient was [...] completed regarding recommendations for treatment Consult to dental laboratory worker for assistance with medical management and surgical clearance. Discussed case with ICU nurse practitioner Future Appointments Appointment Date:08/10/2022 11:00:00 AM Scheduled Provider: Location:[facility] Appointment Type:NS Post Op Future Scheduled Tests Laboratory* A1C Hemoglobin 01/06/22 * Lipid Profile 01/06/22 * Complete Metabolic Panel 01/06/22 Radiology* XR Spine Cervical AP/LAT 07/27/22 [facility] 08-28-2022 Note ORIGINAL HISTORY: Fracture COMPARISON: CT [...] 07/11/2022 1:13:40 PM Ordering Provider: FABIANO MARTIN [facility] [id number] Note ORIGINAL HISTORY: Pain, fall COMPARISON: No [...] 07/11/2022 9:14:35 AM Ordering Provider: MARIANA RAMOS [facility]08-28-2022 Note ORIGINAL HISTORY: Neck pain, fall [...] Sign Date: 07/11/2022 9:13:21 AM Ordering Provider: [address]28-2022 Note ORIGINAL HISTORY: Pain COMPARISON: No [...] Sign Date: 07/11/2022 9:03:50 AM Ordering Provider: [address]28-2022 Note ORIGINAL HISTORY: Fall COMPARISON: 04 [...] Date: 07/11/2022 9:01:52 AM Ordering Provider: [facility]28[facility] Note ORIGINAL HISTORY: Neck pain, fall [...] Sign Date: 07/11/2022 9:13:21 AM Ordering Provider: [facility]08-28-2022 Note ORIGINAL HISTORY: Pain COMPARISON: No TECHNIQUE: [...] atelectasis and or consolidation. Interpreted by: Roberta Roasrio MD Preliminary Report By: Roberta Rosario MD Electronically signed By Roberta Rosario MD Dictated Date: 07/11/2022 9:02:02 AM Prelim Date: 07/11/2022 9:03:50 AM Sign Date: 07/11/2022 9:03:50 AM Ordering Provider: [facility]08-28-2022 Note ORIGINAL HISTORY: Pain, fall COMPARISON: No [...] Sign Date: 07/11/2022 9:14:35 AM Ordering Provider: [facility]08-28-2022 Note ORIGINAL HISTORY: Fall COMPARISON: 04 December [...] Sign Date: 07/11/2022 9:01:52 AM Ordering Provider: [facility]02-23-2022 Evaluation + Plan note Future Scheduled Tests Laboratory* A1C Hemoglobin 01/06/22 * Lipid Profile 01/06/22 * Complete Metabolic Panel 01/06/22 [facility] 01-21-2022 Hospital Discharge instructions Patient Education [...] keep having episodes of high blood sugar. [id number] [employer]. [address] [place] [address], [place] [address]. All rights reserved. This information is not [...] in vomit, stools (black or red color) [phone] [employer] [place] [address]. All rights reserved. This information is not intended as a substitute for professional medical care. Always follow yourhealthcare professional's instructions. Follow Up Care 12/04/2021 08:14:09 With:[facility] Address: [phone] When:2-[address] [facility] 11-02-2021 Hospital Discharge instructions Patient Education [...] and fish, and low-fat dairy products. [employer] [address] [place], [place] [id number]. All rights reserved. This information is not intended as a substitute for professional medical care. Always follow yourdoctors hospitalcare professional's instructions. 09/15/2021 20:06:55 Medical Screening [...] back to this facility in person. [employer] [address] [place] [address]. All rights reserved. This information is not intended as a substitute for professional medical care. Always follow yourhealthcare professional's instructions. Follow Up Care 09/15/2021 18:07:55 With:BARBER CARLISLE Address:Unknown When:Within 1 Day(s) Comments:Follow-up as scheduled with your doctor tomorrow.Continue all routine medications.Return to the ED if symptoms worsen. [facility] yourdeliveryaluation + Plan note Future Appointments Appointment Date:09/16/2021 01:30:00 PM Scheduled Provider:BARBER CARLISLE Location:[facility] Appointment Type:[facility] yourdeliveryaluation + Plan note Future Appointments Appointment Date:03/22/2022 02:00:00 PM Scheduled Provider:BARBER CARLISLE Location:[facility] Appointment Type:[facility] yourdeliveryaluation + Plan note Future Appointments Appointment Date:07/27/2022 09:30:00 AM Scheduled Provider: Location:[facility] Appointment Type:NS Post Op Future Scheduled Tests Laboratory* A1C Hemoglobin 01/06/22 * Lipid Profile 01/06/22 * Complete Metabolic Panel 01/06/22 [facility] evaluation + Plan note Future Appointments Appointment Date:08/12/2022 08:30:00 AM Scheduled Provider: Location:[facility] Appointment Type:NS Post Op Future Scheduled Tests Laboratory* A1C Hemoglobin 01/06/22 * Lipid Profile 01/06/22 * Complete Metabolic Panel 01/06/22 Radiology* XR Spine Cervical AP/LAT 07/27/22 [facility] evaluation + Plan note Future Appointments Appointment Date:09/09/2022 10:00:00 AM Scheduled Provider: Location:[facility] Appointment Type:NS Post Op Future Scheduled Tests Laboratory* A1C Hemoglobin 01/06/22 * Lipid Profile 01/06/22 * Complete Metabolic Panel 01/06/22 [facility] Evaluation + Plan note Future Appointments Appointment Date:10/05/2022 01:30:00 PM Scheduled Provider:TRACE MATTHEWS MD Location:[facility] Appointment Type:NS Post Op Future Scheduled Tests Laboratory* A1C Hemoglobin 01/06/22 * Lipid Profile 01/06/22 * Complete Metabolic Panel 01/06/22 Radiology* XR Spine Thoracic 2 Views 09/09/22 * XR Spine Cervical AP/LAT/Flex/Ext 09/09/22 [facility] Evaluation + Plan note Future Appointments Appointment Date:10/26/2022 03:00:00 PM Scheduled Provider: Location:[facility] Appointment Type:CT Spine Cervical w/o Contrast Appointment Date:11/04/2022 02:15:00 PM Scheduled Provider:TRACE MATTHEWS MD Location:[facility] Appointment Type:Telephone Future Scheduled Tests Laboratory* A1C Hemoglobin 01/06/22 * Lipid Profile 01/06/22 * Complete Metabolic Panel 01/06/22 Radiology* CT Spine Cervical w/o Contrast 10/26/22 [facility] Evaluation + Plan note Future Appointments Appointment Date:11/04/2022 02:15:00 PM Scheduled Provider:TRACE MATTHEWS MD Location:[facility] Appointment Type:Telephone Future Scheduled Tests Laboratory* A1C Hemoglobin 01/06/22 * Lipid Profile 01/06/22 * Complete Metabolic Panel 01/06/22 [facility] Evaluation + Plan note Future Appointments Appointment Date:08/19/2023 02:30:00 PM Scheduled Provider: Location:[facility] Appointment Type:MRI Pancreas Future Scheduled Tests Radiology* MRI Pancreas 08/19/23 [facility] evaluation noteNo assessment information available [facility] Work Phone: evaluation note* Diagnosis Onset Date Resolution Status Iron deficiency anemia acute Vitamin B12 deficiency acute Thrombocytopenia chronic [facility] Work Phone: evaluation note* Diagnosis Onset Date Resolution Status Hyperglycemia acute Metabolic encephalopathy acu te Acute on chronic respiratory failure with hypoxia and hypercapnia chronic COPD (chronic obstructive pulmonary disease) chronic [facility] Work Phone: Evaluation note* Diagnosis Onset Date Resolution Status Anemia acute Cardiomyopathy acute Congestive heart failure (CHF) acute Hyperglycemia acute Lower extremity edema acute Lung nodules acute Metabolic encephalopathy acu te On mechanically assisted ventilation acute Pneumonia acute Respiratory disorder with ventilator dependence acute Acute on chronic respiratory failure with hypoxia and hypercapnia chronic COPD (chronic obstructive pulmonary disease) [facility] Work Phone: Evaluation note* Diagnosis Onset Date Resolution Status Iron deficiency anemia chron ic Thrombocytopenia chronic Iron deficiency anemia chron ic Thrombocytopenia chronic Anemia acute Congestive heart failure (CHF) acute COPD (chronic obstructive pulmonary disease) chronic Lung nodules chronic Metabolic encephalopathy res olved Pneumonia resolved Breast nodule acute Neck mass acute Iron deficiency anemia chron ic Lung nodules chronic Thrombocytopenia [facility] Work Phone: Evaluation note* Diagnosis Onset Date Resolution Status Iron deficiency anemia chron ic Thrombocytopenia chronic Anemia acute Congestive heart failure (CHF) acute COPD (chronic obstructive pulmonary disease) chronic Lung nodules chronic Metabolic encephalopathy res olved Pneumonia resolved Breast nodule acute Neck mass acute Iron deficiency anemia chron ic Lung nodules chronic Thrombocytopenia [facility] Work Phone: Evaluation note* Diagnosis Onset Date [...] nodules chronic Thrombocytopenia chronic Breast nodule acute [facility] Work Phone: Evaluation note* Diagnosis Onset Date Resolution Status Breast nodule acute Neck mass acute Iron deficiency anemia chron ic Lung nodules chronic Thrombocytopenia chronic Breast nodule acute Breast nodule acute Neck mass acute Iron deficiency anemia chron ic Lung nodules chronic Thrombocytopenia [facility] Work Phone: Evaluation note* Diagnosis Onset Date Resolution Status Breast nodule acute Neck mass acute Iron deficiency anemia chron ic Lung nodules chronic Thrombocytopenia [facility] Work Phone: Evaluation note* Diagnosis Onset Date Resolution Status Hematuria acute Iron deficiency anemia chron ic Lung nodules chronic Thrombocytopenia [facility] Work Phone: Evaluation note* Diagnosis Colovaginal fistula- [...] Narrative No data available for this section [facility] Hospital Discharge instructions No data available for this section [facility] Discharge instructions Additional Instructions Your [...] have a progression or worsening of your symptoms.[facility] Work Phone: Progress note No data available for this section [facility] Summary Purpose Family History No Family History Records Found Sister Name Dates Details Family history of malignant neoplasm of breast(V16.3, Z80.3) Status:Active Relationship Condition Age at Onset Recorded Date/T obinna sister Malignant neoplasm of breast Unknown grandmother Diabetes mellitus Unknown Advance Directives No Advanced Directives Records Found Advance Directive Response Recorded Date/ Time Living Will No November 24 9:00am Power of Scallop Cutter Machine No November 24, 2021 9:00am Advance Directive Response Recorded Date/ Time Living Will No November 24 8:00am Power of Scallop Cutter Machine No November 24, 2021 8:00am Advance Directive Response Recorded Date/ Time Living Will No April 19, 2023 4 :46pm Power of Scallop Cutter Machine No April 19, 2023 4:46pm Advance Directive Response Recorded Date/ Time Living Will No July 14 4:04pm Power of Scallop Cutter Machine No July 14 4:04pm Advance Directive Response Recorded Date/ Time Living Will No August 09, 2023 11:01pm Power of Scallop Cutter Machine No July 11:01pm Advance Directive Response Recorded Date/ Time Living Will No September 14 10:49pm Power of Scallop Cutter Machine No September 14, 2023 10:49pm Latest Code [...] Will No September 14 9:49pm Power of Scallop Cutter Machine No September 14, 2023 9:49pm Latest Code [...] Complaint and Reason for Visit Chief Complaint SENIOR LIVING LABWORK SENIOR LIVING LAB WORK Chief Complaint SENIOR LIVING LABWORK SENIOR LIVING LAB WORK SENIOR LIVING LABWORK Chief Complaint SENIOR LIVING LABWORK SENIOR LIVING LAB WORK SENIOR LIVING LAB WORK SENIOR LIVING LABWORK SENIOR LIVING LABWORK Chief Complaint SENIOR LIVING LABWORK SENIOR LIVING LAB WORK SENIOR LIVING LAB WORK SENIOR LIVING LABWORK LABWORK SENIOR LIVING LABWORK 2MO -LABS- NEW PT - PANCYTOPENIA [...] PT - PANCYTOPENIA 2MO -LABS- 2MO -LABS- SENIOR LIVING LABWORK ACUTE ON CHRONIC HYPOXIC AND HYPERCAPNIC [...] NEW PT - PANCYTOPENI A 2MO -LABS- SENIOR LIVING LABWORK ACUTE ON CHRONIC HYPOXIC AND HYPERCAPNIC [...] HYPERCAPNIC ACUTE ON CHRONIC HYPOXIC AND HYPERCAPNIC SENIOR LIVING LABWORK 3MO LABS 2MO -LABS- Reason for Visit Iron deficiency anem ia Thrombocytopenia Iron deficiency anemia Thrombocytopenia Anemia Congestive heart failure (CHF) COPD (chronic obstructive pulmonary disease) Lung nodules Metabolic encephalopathy Pneumonia Breast nodule Neck mass Iron deficiency anemia Lung nodules Thrombocytopenia Chief Complaint 2MO -LABS- SENIOR LIVING LABWORK ACUTE ON CHRONIC HYPOXIC AND HYPERCAPNIC [...] HYPERCAPNIC ACUTE ON CHRONIC HYPOXIC AND HYPERCAPNIC SENIOR LIVING LABWORK SENIOR LIVING LABWORK SENIOR LIVING LABWORK 3MO LABS 2MO -LABS- NODULE ON NECK, ? CANCER Reason for Visit Iron deficiency anem ia Thrombocytopenia Anemia Congestive heart failure (CHF) COPD (chronic obstructive pulmonary disease) Lung nodules Metabolic encephalopathy Pneumonia Breast nodule Neck mass Iron deficiency anemia Lung nodules Thrombocytopenia Chief Complaint 2MO -LABS- SENIOR LIVING LABWORK ACUTE ON CHRONIC HYPOXIC AND HYPERCAPNIC [...] HYPERCAPNIC ACUTE ON CHRONIC HYPOXIC AND HYPERCAPNIC SENIOR LIVING LABWORK SENIOR LIVING LABWORK SENIOR LIVING LABWORK 3MO LABS 2MO -LABS- NODULE ON [...] Thrombocytopenia Breast nodule Chief Complaint 2MO -LABS- SENIOR LIVING LABWORK ACUTE ON CHRONIC HYPOXIC AND HYPERCAPNIC [...] HYPERCAPNIC ACUTE ON CHRONIC HYPOXIC AND HYPERCAPNIC SENIOR LIVING LABWORK SENIOR LIVING LABWORK SENIOR LIVING LABWORK 3MO LABS 2MO -LABS- NODULE ON [...] Thrombocytopenia Breast nodule Chief Complaint 2MO -LABS- SENIOR LIVING LABWORK ACUTE ON CHRONIC HYPOXIC AND HYPERCAPNIC [...] HYPERCAPNIC ACUTE ON CHRONIC HYPOXIC AND HYPERCAPNIC SENIOR LIVING LABWORK SENIOR LIVING LABWORK SENIOR LIVING LABWORK 3MO LABS 2MO -LABS- NODULE ON NECK, ? CANCER 2WKS NO LABS REVIEW MAMMO/CT SENIOR LIVING LABWORK L BREAST NODULE L BREAST NODULE [...] CA NCER 2WKS NO LABS REVIEW MAMMO/CT SENIOR LIVING LABWORK L BREAST NODULE L BREAST NODULE LABWORK abd pain 2MO -LABS- 6WKS LABS REVIEW BIOPSY/PATH SENIOR LIVING LAB WORK Reason for Visit Breast nodule Neck mass Iron deficiency anemia Lung nodules Thrombocytopenia Breast nodule Breast nodule Neck mass Iron deficiency anemia Lung nodules Thrombocytopenia Chief Complaint NODULE ON NECK, ? CA NCER 2WKS NO LABS REVIEW MAMMO/CT SENIOR LIVING LABWORK L BREAST NODULE L BREAST NODULE LABWORK abd pain 2MO -LABS- 6WKS LABS REVIEW BIOPSY/PATH SENIOR LIVING LAB WORK SENIOR LIVING LAB WORK ABD PAIN Reason for Visit Breast nodule Neck mass Iron deficiency anemia Lung nodules Thrombocytopenia Breast nodule Breast nodule Neck mass Iron deficiency anemia Lung nodules Thrombocytopenia Chief Complaint LABWORK abd pain 2MO -LABS- 6WKS LABS REVIEW BIOPSY/PATH SENIOR LIVING LAB WORK SENIOR LIVING LAB WORK ABD PAIN Reason for Visit Breast nodule Neck mass Iron deficiency anemia Lung nodules Thrombocytopenia Chief Complaint LABWORK abd pain 2MO -LABS- 6WKS LABS REVIEW BIOPSY/PATH SENIOR LIVING LAB WORK SENIOR LIVING LAB WORK ABD PAIN dizziness Reason for Visit Breast nodule Neck mass Iron deficiency anemia Lung nodules Thrombocytopenia Chief Complaint 2MO -LABS- 6WKS LABS REVIEW BIOPSY/PATH SENIOR LIVING LAB WORK SENIOR LIVING LAB WORK ABD PAIN dizziness SENIOR LIVING LABWORK Reason for Visit Breast nodule Neck mass Iron deficiency anemia Lung nodules Thrombocytopenia Chief Complaint SENIOR LIVING LAB WOR K SENIOR LIVING LAB WORK ABD PAIN dizziness SENIOR LIVING LABWORK LABWORK Chief Complaint SENIOR LIVING LAB WOR K SENIOR LIVING LAB WORK ABD PAIN dizziness SENIOR LIVING LABWORK LABWORK DISCUSS OPTIONS-NO LABS 2MO -LABS- abd pain Reason for Visit Hematuria Iron deficiency anemia Lung nodules Thrombocytopenia Chief Complaint SENIOR LIVING LAB WOR K SENIOR LIVING LAB WORK ABD PAIN dizziness SENIOR LIVING LABWORK LABWORK DISCUSS OPTIONS-NO LABS 2MO -LABS- SENIOR LIVING LABWORK abd pain abd pain abd pain Reason for Visit Hematuria Iron deficiency anemia Lung nodules Thrombocytopenia Chief Complaint SENIOR LIVING LAB WOR K ABD PAIN dizziness SENIOR LIVING LABWORK LABWORK DISCUSS OPTIONS-NO LABS 2MO -LABS- SENIOR LIVING LABWORK abd pain abd pain abd pain LEFT BREAST FOLLOW UP FIBROADENOMA Reason for Visit Hematuria Iron deficiency anemia Lung nodules Thrombocytopenia Reason for Referral Specialty Diagnoses / Procedures Referred By Contac t Referred To Contact Diagnoses Encounter for preadmission testing Procedures ECG 12 [place] [address] [place] [address] Referral ID Status Reason Start Date Expiration Date V isits Requested Visits Authorized [id number] Pending Review 10/28/2023 10/27/2024 1 1 Specialty Diagnoses / Procedures Referred By Contac t Referred To Contact Diagnoses Colovaginal fistula Nancy Treviño, MATCHER OFFBEARER-SERVICE [employer] FOREMAN [address] [facility] Department [place] [address] Referral ID Status Reason Start Date Expiration Date V isits Requested Visits Authorized [id number] Pending Review 09/28/2023 09/27/2024 1 1 Additional Source Comments INFORMATION SOURCE (unrecogn ized section and content) DATE CREATED AUTHOR 05/09/2018 [employer] DATE CREATED AUTHOR AUTHOR'S ORGANIZ ATION 07/14/2020 [employer] DATE CREATED AUTHOR AUTHOR'S ORGANIZ ATION 12/01/[address] [facility] DATE CREATED AUTHOR AUTHOR'S ORGANIZ ATION 11/06/[address] [employer] [address] [facility] DATE CREATED AUTHOR AUTHOR'S ORGANIZ ATION 09/16/2023 [facility] ([place]) DATE CREATED AUTHOR AUTHOR'S ORGANIZ ATION 10/19/2023 [facility] DATE CREATED AUTHOR AUTHOR'S ORGANIZ ATION 11/13/2023 [facility] DATE CREATED AUTHOR AUTHOR'S ORGANIZ ATION 07/25/2024 [facility] DATE CREATED AUTHOR AUTHOR'S ORGANIZ ATION 09/26/2025 [facility] Care Team (unrecognized sect ion and content) Care Team Personnel Name: BARBER CARLISLE Position: P4 Advanced Practice Nurse Member Role: Primary Care Physician Address: Address: [address] [facility] [address] [facility] [place] [address] [place] Name: MARIANA RAMOS MD Position: ED Physician Member Role: Attending Physician Address: Address: [address] [place] [address] Care Team Related Persons Name: JOCY RUIZ Address: Home [address] [place], [place] [id number] [place] Name: JOCY RUIZ Address: Home [address] [place], [place] [id number] [place] Name: JOCY RUIZ Address: Home [address] [place] [id number] [place] Name: JOCY RUIZ Address: Home [address] [place] [id number] [place] Name: JOCY RUIZ Address: Home [address] [place], [place] [id number] [place] Name: JOCY RUIZ Address: Home [address] [facility] [place] [place] [id number] [place] Name: JOCY RUIZ Address: Home [address] [place], [place] [id number] [place] Name: JOCY RAMIREZ Care Team Personnel Name: BARBER CARLISLE Position: P4 Advanced Practice Nurse Member Role: Primary Care Physician Address: Address: [address] [facility] [place] [address]- Care Team Related Persons Name: JOCY RUIZ Address: Home [address] [place], [place] [id number] [place] Name: JOCY RUIZ Address: Home [address] [place], [place] [id number] [place] Name: JOCY RUIZ Address: Home [address] [place], [place] [id number] [place] Name: JOCY RUIZ Address: Home [address] [place], [place] [id number] [place] Name: JOCY RUIZ Address: Home [address] [place], [place] [id number] [place] Name: JOCY RUIZ Address: Home [address] [place], [place] [id number] [place] Name: JOCY RUIZ Address: Home [address] [place], [place] [id number] [place] Name: JOCY RAMIREZ Care Team Personnel Name: BARBER CARLISLE Position: P4 Advanced Practice Nurse Med Service: Active Provider Member Role: Primary Care Physician Address: Address: [address] [place], [place] [address] Care Team Related Persons Name: JOCY RUIZ Address: Home [address] [place], [place] [phone] [place] Name: JOCY RUIZ Address: Home [address] [place], [place] [address] [place] Name: JOCY RUIZ Address: Home [address] [place] [id number] [place] Name: JOCY RUIZ Address: Home [address] [place] [id number] [place] Name: JOCY RUIZ Address: Home [address] [place], [place] [id number] [place] Name: JOCY RUIZ Address: Home [address] [place] [id number] [place] Name: JOCY RUIZ Address: Home [address] [place] [id number] [place] Name: JOCY RAMIREZ Care Team Personnel Name: BARBER CARLISLE Position: P4 Advanced Practice Nurse Med Service: Active Provider Member Role: Primary Care Physician Address: Address: [address] [place], [place] [address] Care Team Related Persons Name: JOCY RUIZ Address: Home [address] [place] [id number] [place] Name: JOCY RUIZ Address: Home [address] [place] [id number] [place] Name: JOCY RUIZ Address: Home [address] [place] [address] [place] Name: JOCY RUIZ Address: Home [address] [place], [place] [id number] [place] Name: JOCY RUIZ Address: Home [address] [place] [id number] [place] Name: JOCY RUIZ Address: Home [address] [place], [place] [address] [place] Name: JOCY RUIZ Address: Home [address] [place] [id number] [place] Name: JOCY RAMIREZ Care Team Personnel Name: BARBER CARLISLE Position: P4 Advanced Practice Nurse Med Service: Active Provider Member Role: Primary Care Physician Address: Address: [address] [place] [id number] Care Team Related Persons Name: JOCY RUIZ Address: Home [address] [place] [id number] [place] Name: JOCY RUIZ Address: Home [address] [place] [id number] [place] Name: JOCY RUIZ Address: Home [address] [place] [id number] [place] Name: JOCY RUIZ Address: Home [address] [place] [id number] [place] Name: JOCY RUIZ Address: Home [address] [place] [id number] [place] Name: JOCY RUIZ Address: Home [address] [place] [id number] [place] Name: JOCY RUIZ Address: Home [address] [place] [id number] [place] Name: JOCY RAMIREZ Care Team Personnel Name: BARBER CARLISLE Position: P4 Advanced Practice Nurse Member Role: Primary Care Physician Address: Address: [address] [place], [place] [address] Care Team Related Persons Name: RUIZ, JOCY A Address: Home [address] [place] [address] [place] Name: JOCY RUIZ Address: Home [address] [place] [id number] [place] Name: JOCY RUIZ Address: Home [address] [place], [place] [id number] [place] Name: JOCY RUIZ Address: Home [address] [place] [id number] [place] Name: JOCY RUIZ Address: Home [address] [place], [place] [id number] [place] Name: JOCY RUIZ Address: Home [address] [place], [place] [id number] [place] Name: JOCY RUIZ Address: Home [address] [place], [place] [address] [place] Name: JOCY RAMIREZ Care Team Personnel Name: BARBER CARLISLE Position: P4 Advanced Practice Nurse Member Role: Primary Care Physician Address: Address: [address] Care Team Related Persons Name: JOCY RUIZ Address: Home [address] [place] [id number] [place] Name: JOCY RUIZ Address: Home [address] [place], [place] [id number] [place] Name: JOCY RUIZ Address: Home [address] [place] [id number] [place] Name: JOCY RUIZ Address: Home [address] [place] [id number] [place] Name: JOCY RUIZ Address: Home [address] [place] [address] [place] Name: JOCY RUIZ Address: Home [address] [place], [place] [address] [place] Name: JOCY RUIZ Address: Home [address] [place] [phone] [place] Name: JOCY RAMIREZ Care Team Personnel Name: BARBER CARLISLE Position: P4 Advanced Practice Nurse Member Role: Primary Care Physician Address: Address: [address] Care Team Related Persons Name: JOCY RUIZ Address: Home [address] [place], [place] [phone] [place] Name: JOCY RUIZ Address: Home [address] [place] [phone] [place] Name: JOCY RUIZ Address: Home [address] [place] [phone] [place] Name: JOCY RUIZ Address: Home [address] [place] [phone] [place] Name: JOCY RUIZ Address: Home [address] [place] [id number] [place] Name: JOCY RUIZ Address: Home [address] [place] [id number] [place] Name: JOCY RUIZ Address: Home [address] [place] [phone] [place] Name: JOCY RAMIREZ Care Team Personnel Name: BARBER CARLISLE APRN-SILVINO Position: P4 Advanced Practice Nurse Member Role: Primary Care Physician Address: Address: [address] [place], [place] [address] Care Team Related Persons Name: JOCY RUIZ Address: Home [address] [place] [phone] [place] Name: JOCY RUIZ Address: Home [address] [place] [phone] [place] Name: JOCY RUIZ Address: Home [address] [place] [id number] [place] Name: JOCY RUIZ Address: Home [address] [place] [id number] [place] Name: JOCY RUIZ Address: Home [address] [place] [address] [place] Name: JOCY RUIZ Address: Home [address] [place] [phone] [place] Name: JOCY RUIZ Address: Home [address] [place], [place] [address] [place] Name: JOCY RAMIREZ Goals (unrecognized section and content) Goals may be documented in a n alternate section Care Teams (unrecognized sec tion and content) Team Status: Active Member Role Status Dates Barber Carlisle PRESSURIZER, PRESSURIZER-C Primary Care Provider Active Team Status: Inactive Member Role Status Dates Barber Orestes PRESSURIZER, PRESSURIZER-C Primary Care Provider, Referri ng Provider Active Dr. Delfin Jeffries MD Attending Provider Active Team Status: Inactive Member Role Status Dates Barber Orestes PRESSURIZER, PRESSURIZER-C Primary Care Provider Active Stef ELMORE Attending Provider Active Team Status: Active Member Role Status Dates Barber Orestes PRESSURIZER, PRESSURIZER-C Primary Care Provider Active Dr. Delfin Jeffries MD Attending Provider, Referring Pro vider Active Team Status: Active Member Role Status Dates Barber Orestes PRESSURIZER, PRESSURIZER-C Primary Care Provider Active Jonathan ELMORE MD Attending Provider Active Team Status: Active Member Role Status Dates Barber Carlisle PRESSURIZER, PRESSURIZER-C Primary Care Provider Active Dr. Ellis Tsai MD Emergency Provider Active Dr. Rebecca Resendiz DO Admit Provider, Attending Provide r Active Team Status: Active Member Role Status Dates Barber Carlisle PRESSURIZER, PRESSURIZER-C Primary Care Provider Active Dr. Ellis Tsai MD Emergency Provider Active Dr. Rebecca Resendiz DO Admit Provider, Att ending Provider, Other Provider Active Dr. Serge Banks MD Other Provider Active Dr. Ajit Mcgill , Other Provider Active Dr. Martín Monique MD Other Provider Active Dr. Krzysztof Pennington MD Other Provider Active Viji Richey PRESSURIZER, PRESSURIZER-C Other Provider Active Team Status: Active Member Role Status Dates Barber Orestes PRESSURIZER, PRESSURIZER-C Primary Care Provider Active Dr. Ellis Tsai MD Emergency Provider Active Dr. Rebecca Resendiz DO Admit Provider, Other Provider Ac tive Dr. Serge Banks MD Other Provider Active Dr. Ajit Mcgill , Other Provider Active Dr. Martín Monique MD Attending Provider, Other Pro vider Active Dr. Krzysztof Pennington MD Other Provider Active Viji Richey PRESSURIZER, PRESSURIZER-C Other Provider Active Dr. Hernando Padron MD Other Provider Active Dr. Thomas Ahumada MD Other Provider Active Team Status: Active Member Role Status Dates Barber Carlisle PRESSURIZER, PRESSURIZER-C Primary Care Provider Active Dr. Miroslava Gonzalez MD Attending Provider Active Team Status: Active Member Role Status Dates Barber Carlisle PRESSURIZER, PRESSURIZER-C Primary Care Provider Active Dr. Ellis Tsai MD Emergency Provider Active Dr. Rebecca Martín , DO Admit Provider, Other Provider Ac tive Dr. Serge Banks MD Other Provider Active Dr. Ajit Mcgill , DO Other Provider Active Dr. Martín Monique MD Other Provider Active Dr. Krzysztof Pennington MD Other Provider Active Viji Richey NP, PRESSURIZER-C Other Provider Active Dr. Hernando Padron MD Attending Provider, Other Provid er Active Dr. Thomas Ahumada MD Other Provider Active Team Status: Active Member Role Status Meche Carlisle NP, PRESSURIZER-C Primary Care Provider Active Dr. Ellis Tsai MD Emergency Provider Active Dr. Rebecca Resendiz , DO Admit Provider, Other Provider Ac tive Dr. Serge Banks MD Other Provider Active Dr. Ajit Mcgill , Other Provider Active Dr. Martín Monique MD Other Provider Active Dr. Krzysztof Pennington MD Other Provider Active Viji Richey NP, PRESSURIZER-C Other Provider Active Dr. Hernando Padron MD Other Provider Active Dr. Thomas Ahumada MD Other Provider Active Dr. Miroslava Gonzalez MD Attending Provider Active Team Status: Active Member Role Status Meche Carlisle PRESSURIZER, PRESSURIZER-C Primary Care Provider Active Dr. Moise Asutin MD Attending Provider Active Team Status: Active Member Role Status Meche Carlisle NP, PRESSURIZER-C Primary Care Provider Active Dr. Ellis Tsai MD Emergency Provider Active Dr. Rebecca Resendiz , DO Admit Provider, Other Provider Ac tive Dr. Serge Banks MD Other Provider Active Dr. Ajit Mcgill , Other Provider Active Dr. Martín Monique MD Other Provider Active Dr. Krzysztof Pennington MD Other Provider Active Viji Richey NP, PRESSURIZER-C Other Provider Active Dr. Hernando Padron MD Other Provider Active Dr. Thomas Ahumada MD Other Provider Active Dr. Pratima Jaime MD Other Provider Active Dr. Miroslava Gonzalez MD Attending Provider Active Team Status: Active Member Role Status Meche Carlisle NP, PRESSURIZER-C Primary Care Provider Active Dr. Ellis Tsai MD Emergency Provider Active Dr. Rebecca Resendiz , DO Admit Provider, Other Provider Ac tive Dr. Serge Banks MD Attending Provider, Other Provid er Active Dr. Ajit Mcgill , DO Other Provider Active Dr. Martín Monique MD Other Provider Active Dr. Krzysztof Pennington MD Other Provider Active Viji Richey PRESSURIZER, PRESSURIZER-C Other Provider Active Dr. Hernando Padron MD Other Provider Active Dr. Thomas Ahumada MD Other Provider Active Dr. Pratima Jaime MD Other Provider Active Team Status: Active Member Role Status Meche Carlisle PRESSURIZER, PRESSURIZER-C Primary Care Provider Active Dr. Ellis Tsai MD Emergency Provider Active Dr. Rebecca Resendiz , Admit Provider, Other Provider Ac tive Dr. Serge Banks MD Other Provider Active Dr. Ajit Mcgill DO Other Provider Active Dr. Martín Monique MD Other Provider Active Dr. Krzysztof Pennington MD Other Provider Active Viji Richey PRESSURIZER, PRESSURIZER-C Other Provider Active Dr. Hernando Padron MD Other Provider Active Dr. Thomas Ahumada MD Other Provider Active Dr. Pratima Jaime MD Attending Provider, Other Provid er Active Team Status: Inactive Member Role Status Meche Carlisle PRESSURIZER, PRESSURIZER-C Primary Care Provider Active Jonathanfausto ELMORE MD Attending Provider Active Team Status: Inactive Member Role Status Meche Carlisle PRESSURIZER, PRESSURIZER-C Primary Care Provider Active Dr. Ellis Tsai MD Emergency Provider Active Dr. Rebecca Resendiz , Admit Provider, Other Provider Ac tive Dr. Serge Banks MD Other Provider Active Dr. Ajit Mcgill , Other Provider Active Dr. Martín Monique MD Other Provider Active Dr. Krzysztof Pennington MD Other Provider Active Viji Richey NP, PRESSURIZER-C Other Provider Active Dr. Hernando Padron MD Other Provider Active Dr. Thomas Ahumada MD Other Provider Active Dr. Pratima Jaime MD Attending Provider Active Team Status: Active Member Role Status Meche Carlisle PRESSURIZER, PRESSURIZER-C Primary Care Provider Active Dr. Moise Austin MD Attending Provider Active Dr. Rebecca Resendiz , Referring Provider Active Team Status: Active Member Role Status Meche Carlisle PRESSURIZER, PRESSURIZER-C Primary Care Provider Active Dr. Ellis Tsai MD Emergency Provider Active Dr. Rebecca Resendiz , Admit Provider, Other Provider Ac tive Dr. Serge Banks MD Other Provider Active Dr. Ajit Mcgill , Other Provider Active Dr. Martín Monique MD Attending Provider, Other Pro vider Active Dr. Krzysztof Pennington MD Other Provider Active Viji Richey PRESSURIZER, PRESSURIZER-C Other Provider Active Dr. Hernando Padron MD Other Provider Active Dr. Thomas Ahumada MD Other Provider Active Dr. Pratima Jaime MD Referring Provider Active Team Status: Active Member Role Status Meche Carlisle PRESSURIZER, PRESSURIZER-C Primary Care Provider Active Dr. Ellis Tsai MD Emergency Provider Active Dr. Rebecca Resendiz , Admit Provider, Other Provider Ac tive Dr. Serge Banks MD Attending Provider, Other Provid er Active Dr. Ajit Mcgill DO Other Provider Active Dr. Martín Monique MD Other Provider Active Dr. Krzysztof Pennington MD Other Provider Active Viji Richey PRESSURIZER, PRESSURIZER-C Other Provider Active Dr. Hernando Padron MD Other Provider Active Dr. Thomas Ahumada MD Other Provider Active Dr. Pratima Jaime MD Referring Provider, Other Provid er Active Team Status: Inactive Member Role Status Meche Carlisle PRESSURIZER, PRESSURIZER-C Primary Care Provider Active Dr. Delfin Jeffries MD Other Provider Active TORRIE COLLAZO Attending Provider, Referring Provider Active Team Status: Inactive Member Role Status Meche Carlisle PRESSURIZER, PRESSURIZER-C Primary Care Provider, Referri ng Provider Active Dr. Sharmila Jackson MD Attending Provider Active Team Status: Inactive Member Role Status Meche Carlisle PRESSURIZER, PRESSURIZER-C Primary Care Provider Active Dr. Sharmila Jackson [...] Dr. Alecia Navarrete MD Attending Provider Active Web Application Developer Relationship Specialty Start Date End Date Barber Carlisle, MATCHER OFFBEARER-SERVICE [employer] FOREMAN [address] [place] [address] PCP - General 07/04/20 Team Status: Active [...] Sr. , DO Primary Care Provider Active Web Application Developer Relationship Specialty Start Date End Date Barber Carlisle FREDY Morales PCP - General 07/04/20 Web Application Developer Relationship Specialty Start Date End Date Barber Carlisle FREDY Morales [address] [place] [address] PCP - General Family Medicine 10/27/23 Web Application Developer Relationship Specialty Start Date End Date Barber [place] FREDY Morales [address] [place] [address] PCP - General Family Medicine 10/27/23 Web Application Developer Relationship Specialty Start Date End Date Orestes Barber FREDY Morales [address] [place] [address] PCP - General Family Medicine 10/27/23 Reason for Visit (unrecogniz ed section and content) Specialty Diagnoses / Procedures Referred By Contac t Referred To Contact Diagnoses Colovaginal fistula Intestinal Abscess Procedures [place] [id number] [address] [facility] [place] [address] [facility] [place] [address] [id number] [place] [address] Referral ID Status Reason Start Date Expiration Date Visits Re quested Visits Authorized [id number] 1 1 Specialty Diagnoses / Procedures Referred By Contac t Referred To Contact Diagnoses Encounter for preadmission testing Procedures [place] 12 [place] [address] [place] [address] Referral ID Status Reason Start Date Expiration Date V isits Requested Visits Authorized [id number] Pending Review 10/28/2023 10/27/2024 1 1 Scheduled [...] BE BASED ON THE PRIMARY CLINICAL RECORDS. [email or web address] provides no warranty or guarantee of the accuracy or completeness of information in this document.
[2025-10-07 07:45] LABS: Mucous, Urine 0 SEEN /hpf (<or=2+); Red Blood Cells-Urine 0 SEEN /hpf (0-5); Squamous Epithelial Cells - UA 0 SEEN /hpf (5-10)
[2025-10-07 08:18] LABS: Hematocrit 24.5 % (37-47); Hemoglobin 7.0 g/dL (12.0-15.0); Immature Platelet Fraction 1.0 % (1.0-7.9); Immature Reticulocyte Fraction 16.80 % (3.00-15.90); Mean Corp Hgb Conc 28.6 g/dL (32-36); Mean Corpuscular Volume 96.1 fL (81-99); Mean Platelet Vol. 9.7 fl (6.2-12.0); POSITIVE COUNT YES; Platelet Count 89 K/mm3 (150-450); RBC Distribution Width CV 13.9 % (11.6-14.6); RBC Distribution Width SD 49.0 fl (35.1-43.9); Red Blood Count 2.55 M/mm3 (4.2-5.4); Reticulocyte Count 2.03 % (0.5-1.5); White Blood Count 4.7 K/mm3 (4.4-11.0)
[2025-10-07 08:18] LABS: Color, Urine Yellow (Yellow); Glucose, Dipstick Normal (Normal); Ketone-Dipstick Negative (Negative); Leukocyte Esterase-Dipstick 500 /ul (Negative); Nitrite-Dipstick Positive (Negative); Occult Blood-Urine 50 /ul (Negative); Protein-Dipstick 30 mg/dl (Negative); Specific Gravity, Urine 1.015 (1.002-1.030); Urine Bilirubin Dipstick Negative (Negative)
[2025-10-07 08:32] LABS: AST(SGOT) 14 U/L (<=31); Alanine Aminotransfer ALT/SGPT 7 U/L (<=34); Albumin, Serum 3.3 g/dL (3.4-4.8); Alkaline Phosphatase 57 U/L (35-104); Anion Gap 8 (5-15); BUN 15 mg/dL (4-19); BUN/Creat Ratio 18.7 RATIO (10-20); Calcium,Total 8.2 mg/dL (7.6-11.0); Carbon Dioxide 35.3 mmol/L (21.0-32.0); Chloride 102 mmol/L (98-108); Ferritin 74 ng/mL (22-378); Globulin 2.6 g/dL (2.2-4.2); Glucose 165 mg/dL (70-99); Iron 20 ug/dL (50-170); Iron Binding Capacity,Unsat 162 ug/dL (228-428); Potassium 3.8 mmol/L (3.3-5.1)
[2025-10-07 08:34] LABS: Iron Binding Capacity,Total 182 ug/dL (250-450)
[2025-10-08 10:08] LABS: Cancer Antigen 125 2303 13.3 U/mL (0.0-38.1); Carbohydrate Ag 19-9 2261 14 U/mL (0-35); Carcinoembryonic Antigen 0.8 ng/mL (0.0-4.7)
== END ==
LOC: OLS.ACH 05:00
PROVIDERS: PCP Internal Medicine; Visit Provider Internal Medicine
DX: J96.11 Chronic respiratory failure with hypoxia (principal); R54 Age-related physical debility; Z91.81 History of falling; N13.9 Obstructive and reflux uropathy, unspecified; D50.9 Iron deficiency anemia, unspecified
CPT/HCPCS: 36415; 80053; 81001; 82378; 82728; 83540; 83550; 85027; 85045; 86301; 86304; 87077; 87086; 87088; 87186

== ENCOUNTER → 2025-10-09 05:00 | Outpatient (REF) | payer MEDICARE, MEDICAID, SELFPAY ==
--- OUTSIDE RECORDS SUMMARY | 2025-10-09 04:46 | XMS RPT_ITS | CCD ---
Author Organization [facility] Care Team Providers Care Warp Bleaching Vat Tender Name Role Phone Ellis Martines Unavailable Unavailable PROVIDER, UNKNOWN Unavailable Unavailable Michelle Aguilar Unavailable Unavailab Kandi Zacarias Unavailable Unavailable Barber Carlisle Unavailable Unavailable Pranav Bonds Unavailable Unavailable Update Needed Unavailable Unavailable ORESTES FOREIGN AGENT-SUSPENDER CUTTERBARBER Primary Care Physician ORESTES FOREIGN AGENT-SUSPENDER CUTTER, BARBER Primary Care Physician ORESTES FOREIGN AGENT-SUSPENDER CUTTER, BARBER Primary Care Physician Orestes [employer], E[employer]OL[employer] REPAIR[employer]-C Barber Primary Care Provider Orestes [employer], E[employer] GOL[employer] C[employer] REPAIRERS-C Barber Referring Provider [phone]([facility] [phone] Dr. Delfin Jeffries Attending Provider Orestes [employer], E[employer] GOL[employer] REPAIR[employer]-C Barber Primary Care Provider Orestes [employer], E[employer] GOL[employer] REPAIRERS-C Barber Referring Provider 1([facility] )[phone] Dr. Delfin Jeffries Attending Provider [phone] Dr. Ellis Tsai Emergency Provider Dr. Rebecca Resendiz Admit Provider Dr. Rebecca Resendiz Attending Provider [phone] Rebecca Resendiz Other Provider Dr. Serge Banks Other Provider Dr. Ajit Mcgill Other Provider Dr. Martín Monique Other Provider 1([facility])[phone] Krzysztof Pennington Other Provider Unavailab rambo Richey [employer], ELECTRIC GOL[employer] C[employer] REPAIRERS-C Viji Other Provider Dr. Miroslava Gonzalez Attending Provider Dr. Martín Monique Attending Provider Dr. Hernando Padron Other Provider Unavailable Dr. Thomas Ahumada Other Provider Unavaila Dr. Moise Jo Attending Provider Dr. Hernando Padron Attending Provider Unavailable Dr. Pratima Jaime Attending Provider Dr. Pratima Jaime Other Provider Dr. Serge Banks Attending Provider Dr. Rebecca Resendiz Referring Provider Orestes [employer], [employer] REPAIR[employer]-C Luke Primary Care Provider Orestes [employer], E[employer]OL[employer] REPAIRERS-C Barber Referring Provider [phone] Dr. Delfin Jeffries Attending Provider Dr. Pratima Jaime Referring Provider Dr. Sharmila Jackson Attending Provider Orestes [employer], E[employer]OL[employer] REPAIRERS-C Luke Primary Care Provider Orestes [employer], [employer] REPAIR[employer]-C Barber Referring Provider [phone] Dr. Delfin Jeffries Attending Provider Gilma ELMORE MD Jonathan Primary Care Provider Unava ilable Gilma ELMORE MD Jonathan Referring Provider Unavaila Dr. Delfin Hutchins Attending Provider Dr. Jonathan Dillard Sr. Primary Care Provider Dr. Jonathan Dillard Sr. Referring Provider Dr. Delfin Jeffries Attending Provider SOLITARIO STUBBS, DR CAMPOS Attending Unavailabl e LORETHAN FOREIGN AGENT-SUSPENDER CUTTER, [facility] Unavail renata JEREZ MD, DR CAMPOS Attending Unavailabl e LORETHAN FOREIGN AGENT-SUSPENDER CUTTER, [facility] Unavail renata JEREZ MD, DR CAMPOS Attending Unavailabl e LORETHAN FOREIGN AGENT-SUSPENDER CUTTER, BARBER Primary Care Unavail able FLIGHT FOREIGN AGENT-SUSPENDER CUTTER, RENETTA Attending Unavail able LORSON FOREIGN AGENT-SUSPENDER CUTTER, [facility] Care Unavail able CRISSY STUBBS, DR OSEI PACHECO Attending Unav ailable LORSON FOREIGN AGENT-SUSPENDER CUTTER, [facility] Care Unavail able FLIGHT FOREIGN AGENT-SUSPENDER CUTTER, RENETTA Attending Unavail able LORSON FOREIGN AGENT-SUSPENDER CUTTER, [facility] Care Unavail able BYRON STUBBS, TRACE Sprague Attending Unavailable LORSON FOREIGN AGENT-SUSPENDER CUTTER, [facility] Care Unavail able Lorson FOREIGN AGENT-SUSPENDER CUTTER, [facility] Primary Care Pr ovider Deperro Sr., Dr. Castillo Primary Care Provider Gilma Sr., Dr. Castillo Referring Provider [phone]. Delfin Jeffries Attending Provider Dr. Calvin Hester Emergency Provider Dr. Lucia Jurado Attending Provider Dr. Calvin Hester Referring Provider Dr. Susy Delarosa Attending Provider VARSHA SOTELO Attending Unavail able ORESTES, [facility] Unavaila ble Lorson FOREIGN AGENT-SUSPENDER CUTTER, [facility] Pr ovider Lorson FOREIGN AGENT-SUSPENDER CUTTER, [facility] Pr ovider ORESTES [facility] Unavaila ble DELFIN MELARA Admitting Unavailable VARSHA SOTELO Attending Unavail able VARSHA SOTELO Admitting Unavail able VARSHA SOTELO Attending Unavail able ORESTES, [facility] Unavaila ble LORSON, [facility] Unavaila ble LORSON, [facility] Unavaila ble ELIDA VILLAREAL Attending Unavailable LORSON, [facility] Care Unavaila ble LORSON, [facility] Care Unavaila ble RITU HARRELL Referring Unavailable [...] sources) cyclobenzaprine; Translations: [cyclobenzaprine] Drug Allergy 3 [facility] (20 sources) tiZANidine; Translations: [tizanidine] Drug Allergy 3 [facility] (6 sources) Acetaminophen / oxyCODONE; Translations: [OXYCODONE-ACETAMIN OPHEN] Drug Allergy 6 Palpitations [facility] 3 Repository (1 source) cyclobenzaprine Drug Allergy 5 [facility] Repository (1 source) tiZANidine Drug Allergy 5 [facility] Repository Medications Current Medications Medication [...] 19, 2023 12:00am take 2 tablets by hi ut once daily at bedtime acetaminophen (Tylenol) [...] preference, # 1 EA, 0 Refill(s), Pharmacy: [facility] 166, cm, 09/09/20 [...] # 60 cap(s), 11 Refill(s), Pharmacy: [facility], 166, cm, 09/09/20 11:16:00 EDT, Height, [...] diabetes, # 1 EA, 0 Refill(s), Pharmacy: [facility], 165, cm, 01/16/21 13:33:00 EST, Height, 94.9, kg, 09/16/21 13:29:00 EDT, Dosing Weight Start Date: 09/28/21 Status: Ordered Start: 09-23-2021 DME MISCellane ous See Instructions, True Plus Lancets check blood sugar once daily. #1 box for 90 day supply x 0 refills Dx: diabetes, # 1 EA, 3 Refill(s), Pharmacy: [facility], Diabetes, 165, cm, 01/16/21 13:33:00 EST, Height, 94.9, kg, 09/16/21... Start Date: 09/23/21 Status: Ordered Start: 04-30-2021 DME MISCellane ous See Instructions, True Plus Lancets check blood sugar once daily. #1 box for 90 day supply x 0 refills Dx: diabetes, # 1 EA, 0 Refill(s), Pharmacy: [facility], Diabetes, 165, cm, 01/16/21 13:33:00 EST, Height, 96.36, kg, ... Start Date: 04/30/21 Status: Ordered Start: 04-30-2021 DME MISCellane ous See Instructions, Alcohol Pads Use as directed Dispense 90 day supply x 0 refills DX: diabetes, # 1 EA, 0 Refill(s), Pharmacy: [facility], 165, cm, 01/16/21 [...] Ordered docusate sodium 50 mg / sennosides, assisted 8.6 mg oral tablet (20 sources) Start: [...] at 2000 Indications: venous thrombosis estrogens, conjugated (assisted) 0.625 mg/ml vaginal cream (8 sources) Estrogen [...] # 16 gram(s), 11 Refill(s), [facility] [address] [facility], cm, 09/09/20 11:16:00 EDT, Height, kg, 09/09/20 11:16:00 EDT, Dosing Weight Start Date: 10/28/20 Status: Ordered folic acid 1 mg oral tablet (20 sources) Start: 11-11-2022 take 1 mg by mouth once daily Folic Acid Active 1 MG PO DAILY November 11, 2022 12:00am Freestyle [place] 14 day sensor (1 source) Start: 09-16-2021 Freestyle Read er 14 day sensor See Instructions, 1 month supply, # 2 EA, 0 Refill(s), Pharmacy: [facility], 165, cm, 01/16/21 [...] qDay, # 30 tab(s), 3 Refill(s), Pharmacy: [facility], Diarrhea Diabetes mellitus type [...] qDay, # 90 tab(s), 3 Refill(s), Pharmacy: [facility], 165vira, 05/04/22 10:05:00 EDT, [...] qDay, # 90 tab(s), 3 Refill(s), Pharmacy: [facility], vira Covarrubias, 01/16/21 13:33:00 EST, Height, kg, 04/06/21 13:21:00 EDT, Dosing Weight Start Date: 04/22/21 Status: Ordered Start: 06-11-2013 take 1 tablet by [facility] every twenty-four hours Metoprolol Succinate ER [...] qDay, # 90 tab(s), 3 Refill(s), Pharmacy: [facility], 165, cm, 05/04/22 10:05:00 EDT, [...] qDay, # 90 tab(s), 3 Refill(s), Pharmacy: [facility], 165, cm, 01/16/21 13:33:00 EST, Height, kg, 04/06/21 13:21:00 EDT, Dosing Weight Start Date: 04/22/21 Status: Ordered nitroglycerin 0.4 mg sublingual tablet (3 sources) Start: 04-22-2021 nitroglycerin 0.4 mg sublingual tablet See Instructions, DISSOLVE 1 TABLET UNDER THE TONGUE NEEDED FOR CHEST PAIN EVERY 5 MINUTES UP TO 3 TIMES. IF NO RELIEF CALL 911., # 25 tab(s), 0 Refill(s), Pharmacy: [facility], 165, cm, 01/16/21 13:33:00 EST, Height, kg, ... Start Date: 04/22/21 Status: Ordered nystatin 100,000 units/g topical cream (1 source) Start: 09-16-2021 End: 12-09-2021 nystatin 100,000 units/g topical cream Apply 1 marcy, Topical, BID, X 14 day(s), # 30 gram(s), 5 Refill(s), Pharmacy: [facility], Cream, 165, cm, [...] Start: 08-09-2023 take 2 tablets by mo [facility] once daily Cyanocobalamin (Vitamin B-12) (B-12 Dots) [...] 2X/week, # 42.5 gram(s), 11 Refill(s), [facility], 165, cm, 01/06/22 9:22:00 [...] once daily. For 7 days ending 09/20/23. ([employer] Ultimate Jie Probiotic 15 BILLION per SNF list) 0 09/27/2023 10/31/2023 Discontinued (Discontinued by another clinician) Start: 09-27-2023 take 1 capsule by [facility] once daily L. acidophilus-L. rhamnosus (Probiotic) 15 billion cell capsule Indications: Dilated cardiomyopathy (CMS/HCC) Take 1 capsule by mouth once daily. For 7 days ending 09/20/23. ([employer] Ultimate Jie Probiotic 15 BILLION per SNF [...] Daily, # 90 tab(s), 3 Refill(s), Pharmacy: [facility], 165, cm, 01/16/21 [...] Date: 07/20/22 Status: Ordered polyethylene glycol 3350 20049 mg powder for oral solution (20 sources) [...] Date: 07/20/22 Status: Ordered polyethylene glycol 3350 397357 mg / potassium chloride 2970 mg / sodium bicarbonate 6740 mg / sodium chloride 5860 mg / sodium sulfate 86813 mg powder for oral solution (1 source) [...] Oncology Visit Reporton 09-14 Oncology Visit Report [facility] [address] [place] [id number] OFFICE VISIT Date of Service: 09/26/25 0934 MR#: [id number] Acct: [id number] Name: POLI RAMIREZ Rep #: [id number] : 1950 From: Delfin Jeffries MD Age/Sex: 74/F Location: [facility] Status: Signed HPI Subjective Date of Service [...] do Oral Iron supplements. Was seen in [facility], CT chest on 02/18/2023 showed L breast nodule, multiple small lung nodules. CT neck done on 03/18/2023 showed post operative changes. Got iron infusion at [place]. Comes for follow up, found to have Anemia and referred for follow up. Has Folley's Cath in place. [facility] Medical History Colitis On mechanically assisted ventilation [...] Breast cancer Grandmother Diabetes Social History housing: [facility] Smoking Status: Former smoker alcohol intake: never [...] bisacodyl 10 mg rectal suppository 10 mg MO DAILY PRN constipation 11/11/22 09/26/25 History acetaminophen [...] pain 09/26 (more content not included)... Normal [facility] HH, Hemoglobin AND Hematocri ton 09-25-2025 Hematocrit (Bld) [Volume fraction] 24.6 % Low 37-47 [facility] Comment on above: Order Comment: 310-2 Performed By: #### L 100.0600 #### [facility] [address] [place], [address] Hemoglobin (Bld) [Mass/Vol] 7.3 g/dL Low 12.0-15.0 [facility] Comment on above: Order Comment: 310-2 Performed By: #### L 100.0600 #### [facility] [address] [place], [address] CBC-Complete Blood Cnt No Di ffon 09-18-2025 Erythrocyte distribution width (RBC) [Ratio] 14.2 % Normal 11.6-14.6 [facility] Comment on above: Order Comment: 310.2 Performed By: #### L 500.4050, L100.0500 #### [facility] [address] [place], [address] Hematocrit (Bld) [Volume fraction] 24.5 % Low 37-47 [facility] Comment on above: Order Comment: 310.2 Performed By: #### L 500.4050, L100.0500 #### [facility] [address] [place], [address] Hemoglobin (Bld) [Mass/Vol] 7.3 g/dL Low 12.0-15.0 [facility] Comment on above: Order Comment: 310.2 Performed By: #### L 500.4050, L100.0500 #### [facility] [address] [place], [address] MCH (RBC) [Entitic mass] 28.0 pg Normal 27.0-32.0 [facility] Comment on above: Order Comment: 310.2 Performed By: #### L 500.4050, L100.0500 #### [facility] [address] [place], [address] MCHC (RBC) [Mass/Vol] 29.8 g/dL Low 32-36 [facility] Comment on above: Order Comment: 310.2 Performed By: #### L 500.4050, L100.0500 #### [facility] [address] [place], [address] MCV (RBC) [Entitic vol] 93.9 fL Normal 81-99 [facility] Comment on above: Order Comment: 310.2 Performed By: #### L 500.4050, L100.0500 #### [facility] [address] [place], [address] Platelet mean volume (Bld) [Entitic vol] 9.5 fL Normal 6.2-12.0 [facility] Comment on above: Order Comment: 310.2 Performed By: #### L 500.4050, L100.0500 #### [facility] [address] [place], [address] Platelets (Bld) [#/Vol] 83 10*3/uL Low 150-450 [facility] Comment on above: Order Comment: 310.2 Performed By: #### L 500.4050, L100.0500 #### [facility] [address] [place], [address] RBC (Bld) [#/Vol] 2.61 10*6/uL Low 4.2-5.4 [facility] Comment on above: Order Comment: 310.2 Performed By: #### L 500.4050, L100.0500 #### [facility] [address] [place], [address] RDW SD 47.9 fl High 35.1-43.9 [facility] Comment on above: Order Comment: 310.2 Performed By: #### L 500.4050, L100.0500 #### [facility] [address] [place], [address] WBC (Bld) [#/Vol] 4.3 10*3/uL Low 4.4-11.0 [facility] Comment on above: Order Comment: 310.2 Performed By: #### L 500.4050, L100.0500 #### [facility] [address] [place], [address] Differential Commenton 09-18 SMEAR COMMENT SCANNED Normal [facility] Comment on above: Order Comment: 310.2 Performed By: #### L 500.4050, L100.0500 #### [facility] [address] [place], [address] HH, Hemoglobin AND Hematocri ton 09-11-2025 Hematocrit (Bld) [Volume fraction] 28.5 % Low 37-47 [facility] Comment on above: Order Comment: 310.2 Performed By: #### L 500.4050, L100.0500 #### [facility] [address] [place], [address] Hemoglobin (Bld) [Mass/Vol] 8.4 g/dL Low 12.0-15.0 [facility] Comment on above: Order Comment: 310.2 Performed By: #### L 500.4050, L100.0500 #### [facility] [address] [place], [address] Basic Metabolic Profile (BMP )on 09-10-2025 BUN/CRE 15.9 RATIO Normal 10-20 [facility] Comment on above: Performed By: #### L 100.0500, L500.2500, BTS #### [facility] [address] [place], [address] Calcium [Mass/Vol] 8.5 mg/dL Normal 7.6-11.0 [facility] Comment on above: Performed By: #### L 100.0500, L500.2500, BTS #### [facility] [address] [place], [address] Chloride [Moles/Vol] 101 mmol/L Normal 98-108 [facility] Comment on above: Performed By: #### L 100.0500, L500.2500, BTS #### [facility] [address] [place], [address] CO2 [Moles/Vol] 34.5 mmol/L High 21.0-32.0 [facility] Comment on above: Performed By: #### L 100.0500, L500.2500, BTS #### [facility] [address] [place], [address] Creatinine [Mass/Vol] 0.82 mg/dL Normal 0.70-1.20 [facility] Comment on above: Performed By: #### L 100.0500, L500.2500, BTS #### [facility] [address] [place], [address] ECRCL 62.66 ml/min Normal 50-250 [facility] Comment on above: Performed By: #### L 100.0500, L500.2500, BTS #### [facility] [address] [place], [address] GAP 9 Normal 5-15 [facility] Comment on above: Performed By: #### L 100.0500, L500.2500, BTS #### [facility] [address] [place], [address] GFR/1.73 sq M.predicted among non-blacks MDRD (S/P/Bld) [Vol rate/Area] 74 mL/min/{1.73_m2} Normal >60 [facility] Comment on above: Result Comment: mL/m in/1.73m2 CKD-EPI Creatinine Equation (2020) Performed By: #### L 100.0500, L500.2500, BTS #### [facility] [address] [place], [address] Glucose [Mass/Vol] 182 mg/dL High 70-99 [facility] Comment on above: Performed By: #### L 100.0500, L500.2500, BTS #### [facility] [address] [place], [address] Potassium [Moles/Vol] 4.3 mmol/L Normal 3.3-5.1 [facility] Comment on above: Result Comment: Hemo lysis present, Results??could be affected. ?? Performed By: #### L 100.0500, L500.2500, BTS #### [facility] [address] [place], [address] Sodium [Moles/Vol] 145 mmol/L Normal 133-145 [facility] Comment on above: Performed By: #### L 100.0500, L500.2500, BTS #### [facility] [address] [place], [address] Urea nitrogen [Mass/Vol] 13 mg/dL Normal 4-19 [facility] Comment on above: Performed By: #### L 100.0500, L500.2500, BTS #### [facility] [address] [place], [address] CBC-Complete Blood Cnt No Di ffon 09-10-2025 Erythrocyte distribution width (RBC) [Ratio] 14.3 % Normal 11.6-14.6 [facility] Comment on above: Performed By: #### L 100.0500, L500.2500, BTS #### [facility] [address] [place], [address] Hematocrit (Bld) [Volume fraction] 26.5 % Low 37-47 [facility] Comment on above: Performed By: #### L 100.0500, L500.2500, BTS #### [facility] [address] [place], [address] Hemoglobin (Bld) [Mass/Vol] 7.9 g/dL Low 12.0-15.0 [facility] Comment on above: Performed By: #### L 100.0500, L500.2500, BTS #### [facility] [address] [place], [address] MCH (RBC) [Entitic mass] 27.8 pg Normal 27.0-32.0 [facility] Comment on above: Performed By: #### L 100.0500, L500.2500, BTS #### [facility] [address] [place], [address] MCHC (RBC) [Mass/Vol] 29.8 g/dL Low 32-36 [facility] Comment on above: Performed By: #### L 100.0500, L500.2500, BTS #### [facility] [address] [place], [address] MCV (RBC) [Entitic vol] 93.3 fL Normal 81-99 [facility] Comment on above: Performed By: #### L 100.0500, L500.2500, BTS #### [facility] [address] [place], [address] Platelet mean volume (Bld) [Entitic vol] 10.7 fL Normal 6.2-12.0 [facility] Comment on above: Performed By: #### L 100.0500, L500.2500, BTS #### [facility] [address] [place], [address] Platelets (Bld) [#/Vol] 111 10*3/uL Low 150-450 [facility] Comment on above: Performed By: #### L 100.0500, L500.2500, BTS #### [facility] [address] [place], [address] RBC (Bld) [#/Vol] 2.84 10*6/uL Low 4.2-5.4 [facility] Comment on above: Performed By: #### L 100.0500, L500.2500, BTS #### [facility] [address] [place], [address] RDW SD 48.1 fl High 35.1-43.9 [facility] Comment on above: Performed By: #### L 100.0500, L500.2500, BTS #### [facility] [address] [place], [address] WBC (Bld) [#/Vol] 5.1 10*3/uL Normal 4.4-11.0 [facility] Comment on above: Performed By: #### L 100.0500, L500.2500, BTS #### [facility] [address] [place], [address] Emergency Department Summary on 09-10-2025 Emergency Department Summary [facility] Medical Records Department [address] [place] [address] Emergency Department Summary 09/10/25 MR#: [id number] Acct: [id number] Name: POLI RAMIREZ Rep #: [id number] : 1950 74 From: Royce Vigil MD [...] Symptoms: Patient denies orthostatic symptoms or dyspnea, [place] exertion, chest bigg Narrative Narrative: Patient is [...] Prior similar symptoms: Yes Recent [facility] Medical History Colitis On mechanically assisted ventilation [...] bisacodyl 10 mg rectal suppository 10 mg MO DAILY PRN constipation 11/11/22 Unknown History cranberry [...] constipation Unkno (more content not included)... Normal [facility] Stool Occult Blood iFOBon STOB Positive Normal [facility] Comment on above: Performed By: #### M 100.7900 #### [facility] [address] [place], [address] Type AND Screenon 09-10-2025 Ab SCREEN GEL Negative Normal [facility] Comment on above: Order Comment: HGI Performed By: #### L 100.0500, L500.2500, BTS #### [facility] [address] [place], [address] HH, Hemoglobin AND Hematocri ton 09-09-2025 Hematocrit (Bld) [Volume fraction] 24.4 % Low 37-47 [facility] Comment on above: Order Comment: 310.2 Performed By: #### L 500.4050, L100.0500 #### [facility] [address] [place], [address] Hemoglobin (Bld) [Mass/Vol] 7.0 g/dL Low 12.0-15.0 [facility] Comment on above: Order Comment: 310.2 Performed By: #### L 500.4050, L100.0500 #### [facility] [address] [place], [address] Ferritinon 09-06-2025 Ferritin [Mass/Vol] 52 ng/mL Normal 22-378 [facility] Comment on above: Order Comment: 310.2 Performed By: #### L 500.4050, L100.0500 #### [facility] [address] [place], [address] Iron+Iron Binding Capacityon 09-06-2025 TIBC 182 ug/dL Low 250-450 [facility] Comment on above: Order Comment: 310.2 Performed By: #### L 500.4050, L100.0500 #### [facility] [address] [place], [address] Vitamin B12on 09-06-2025 Cobalamin (Vitamin B12) [Mass/Vol] 195 pg/mL Normal 180-914 [facility] Comment on above: Order Comment: 310.2 Performed By: #### L 500.4050, L100.0500 #### [facility] [address] [place], [address] CBC-Complete Blood Cnt No Di ffon 09-04-2025 Platelets (Bld) [#/Vol] 91 10*3/uL Low 150-450 [facility] Comment on above: Order Comment: 310.2 Performed By: #### L 100.0500, L500.4050, L501.9985 #### [facility] [address] [place], [address] Comprehensive Metabolic Prof ilon 09-04-2025 Albumin [Mass/Vol] 3.4 g/dL Normal 3.4-4.8 [facility] Comment on above: Order Comment: 310.2 Performed By: #### L 500.4050, L100.0500 #### [facility] [address] [place], [address] Albumin/Globulin [Mass ratio] 1.2 {ratio} Normal 0.9-2.4 [facility] Comment on above: Order Comment: 310.2 Performed By: #### L 500.4050, L100.0500 #### [facility] [address] [place], [address] ALK PHOS 61 U/L Normal 35-104 [facility] Comment on above: Order Comment: 310.2 Performed By: #### L 500.4050, L100.0500 #### [facility] [address] [place], [address] ALT [Catalytic activity/Vol] U/L Normal <=34 [facility] Comment on above: Order Comment: 310.2 Performed By: #### L 500.4050, L100.0500 #### [facility] [address] [place], [address] AST [Catalytic activity/Vol] 14 U/L Normal <=31 [facility] Comment on above: Order Comment: 310.2 Performed By: #### L 500.4050, L100.0500 #### [facility] [address] [place], [address] Bilirubin [Mass/Vol] 0.22 mg/dL Normal 0.00-1.30 [facility] Comment on above: Order Comment: 310.2 Performed By: #### L 500.4050, L100.0500 #### [facility] [address] [place], [address] BUN/CRE 29.8 RATIO High 10-20 [facility] Comment on above: Order Comment: 310.2 Performed By: #### L 500.4050, L100.0500 #### [facility] [address] [place], [address] Calcium [Mass/Vol] 8.4 mg/dL Normal 7.6-11.0 [facility] Comment on above: Order Comment: 310.2 Performed By: #### L 500.4050, L100.0500 #### [facility] [address] [place], [address] Chloride [Moles/Vol] 104 mmol/L Normal 98-108 [facility] Comment on above: Order Comment: 310.2 Performed By: #### L 500.4050, L100.0500 #### [facility] [address] [place], [address] CO2 [Moles/Vol] 35.7 mmol/L High 21.0-32.0 [facility] Comment on above: Order Comment: 310.2 Performed By: #### L 500.4050, L100.0500 #### [facility] [address] [place], [address] Creatinine [Mass/Vol] 0.53 mg/dL Low 0.70-1.20 [facility] Comment on above: Order Comment: 310.2 Performed By: #### L 500.4050, L100.0500 #### [facility] [address] [place], [address] GAP 7 Normal 5-15 [facility] Comment on above: Order Comment: 310.2 Performed By: #### L 500.4050, L100.0500 #### [facility] [address] [place], [address] GFR/1.73 sq M.predicted among non-blacks MDRD (S/P/Bld) [Vol rate/Area] 96 mL/min/{1.73_m2} Normal >60 [facility] Comment on above: Order Comment: 310.2 Result Comment: mL/m in/1.73m2 CKD-EPI Creatinine Equation (2020) Performed By: #### L 500.4050, L100.0500 #### [facility] [address] [place], [address] Globulin (S) [Mass/Vol] 2.7 g/dL Normal 2.2-4.2 [facility] Comment on above: Order Comment: 310.2 Performed By: #### L 500.4050, L100.0500 #### [facility] [address] [place], [address] Glucose [Mass/Vol] 118 mg/dL High 70-99 [facility] Comment on above: Order Comment: 310.2 Performed By: #### L 500.4050, L100.0500 #### [facility] [address] [place], [address] Potassium [Moles/Vol] 3.8 mmol/L Normal 3.3-5.1 [facility] Comment on above: Order Comment: 310.2 Performed By: #### L 500.4050, L100.0500 #### [facility] [address] [place], [address] Sodium [Moles/Vol] 146 mmol/L High 133-145 [facility] Comment on above: Order Comment: 310.2 Performed By: #### L 500.4050, L100.0500 #### [facility] [address] [place], [address] T PROT 6.1 g/dL Normal 5.9-8.4 [facility] Comment on above: Order Comment: 310.2 Performed By: #### L 500.4050, L100.0500 #### [facility] [address] [place], [address] Urea nitrogen [Mass/Vol] 16 mg/dL Normal 4-19 [facility] Comment on above: Order Comment: 310.2 Performed By: #### L 500.4050, L100.0500 #### [facility] [address] [place], [address] Hemoglobin A1con 09-04-2025 HbA1c (Bld) [Mass fraction] % Normal <=5.6 [facility] Comment on above: Order Comment: 310.2 Result Comment: Norm al < 5.7 % Prediabetic 5.7 - 6.4 % Diabetic >or= 6.5 % Please note range changes. Performed By: #### L 500.4050, L100.0500 #### [facility] [address] [place], [address] CBC-Complete Blood Cnt No Di ffon 09-03-2025 HCT Normal 37-47 [facility] Comment on above: Order Comment: 310.2 Result Comment: KELLY CHAVEZ SUSY @610. TRY 09/04/25 Performed By: #### L 500.4050, L100.0500 #### [facility] [address] [place], [address] HGB Normal 12.0-15.0 [facility] Comment on above: Order Comment: 310.2 Result Comment: KELLY CHAVEZ SUSY @610. TRY 09/04/25 Performed By: #### L 500.4050, L100.0500 #### [facility] [address] [place], [address] MCH Normal 27.0-32.0 [facility] Comment on above: Order Comment: 310.2 Result Comment: KELLY CHAVEZ SUSY @610. TRY 09/04/25 Performed By: #### L 500.4050, L100.0500 #### [facility] [address] [place], [address] MCHC Normal 32-36 [facility] Comment on above: Order Comment: 310.2 Result Comment: KELLY CHAVEZ SUSY @610. TRY 09/04/25 Performed By: #### L 500.4050, L100.0500 #### [facility] [address] [place], [address] MCV Normal 81-99 [facility] Comment on above: Order Comment: 310.2 Result Comment: KELLY JAIN @610. TRY 09/04/25 Performed By: #### L 500.4050, L100.0500 #### [facility] [address] [place], [address] PLT Normal 150-450 [facility] Comment on above: Order Comment: 310.2 Result Comment: KELLY JAIN @610. TRY 09/04/25 Performed By: #### L 500.4050, L100.0500 #### [facility] [address] [place], [address] RBC Normal 4.2-5.4 [facility] Comment on above: Order Comment: 310.2 Result Comment: KELLY JAIN @610. TRY 09/04/25 Performed By: #### L 500.4050, L100.0500 #### [facility] [address] [place], [address] RDW CV Normal 11.6-14.6 [facility] Comment on above: Order Comment: 310.2 Result Comment: KELLY JAIN @610. TRY 09/04/25 Performed By: #### L 500.4050, L100.0500 #### [facility] [address] [place], [address] RDW SD Normal 35.1-43.9 [facility] Comment on above: Order Comment: 310.2 Result Comment: KELLY JAIN @610. TRY 09/04/25 Performed By: #### L 500.4050, L100.0500 #### [facility] [address] [place], [address] WBC Normal 4.4-11.0 [facility] Comment on above: Order Comment: 310.2 Result Comment: KELLY JAIN @610. TRY 09/04/25 Performed By: #### L 500.4050, L100.0500 #### [facility] [address] [place], [address] Comprehensive Metabolic Prof iljose d 09-03-2025 ALB Normal 3.4-4.8 [facility] Comment on above: Order Comment: 310.2 Result Comment: KELLY TOLD SUSY @610. TRY 09/04/25 Performed By: #### L 500.4050, L100.0500 #### [facility] [address] [place], [address] ALK PHOS Normal 35-104 [facility] Comment on above: Order Comment: 310.2 Result Comment: UTO TOLD SUSY @610. TRY 09/04/25 Performed By: #### L 500.4050, L100.0500 #### [facility] [address] [place], [address] ALT Normal <=34 [facility] Comment on above: Order Comment: 310.2 Result Comment: UTO TOLD SUSY @610. TRY 09/04/25 Performed By: #### L 500.4050, L100.0500 #### [facility] [address] [place], [address] AST Normal <=31 [facility] Comment on above: Order Comment: 310.2 Result Comment: KELLY TOLD SUSY @610. TRY 09/04/25 Performed By: #### L 500.4050, L100.0500 #### [facility] [address] [place], [address] BUN Normal 4-19 [facility] Comment on above: Order Comment: 310.2 Result Comment: KELLY TOLD SUSY @610. TRY 09/04/25 Performed By: #### L 500.4050, L100.0500 #### [facility] [address] [place], [address] BUN/CRE Normal 10-20 [facility] Comment on above: Order Comment: 310.2 Result Comment: UTO TOLD SUSY @610. TRY 09/04/25 Performed By: #### L 500.4050, L100.0500 #### [facility] [address] [place], [address] Calcium Normal 7.6-11.0 [facility] Comment on above: Order Comment: 310.2 Result Comment: KELLY JAIN @610. TRY 09/04/25 Performed By: #### L 500.4050, L100.0500 #### [facility] [address] [place], [address] CL Normal 98-108 [facility] Comment on above: Order Comment: 310.2 Result Comment: KELLY JAIN @610. TRY 09/04/25 Performed By: #### L 500.4050, L100.0500 #### [facility] [address] [place], [address] CO2 Normal 21.0-32.0 [facility] Comment on above: Order Comment: 310.2 Result Comment: KELLY JAIN @610. TRY 09/04/25 Performed By: #### L 500.4050, L100.0500 #### [facility] [address] [place], [address] CREAT,SERUM Normal 0.70-1.20 [facility] Comment on above: Order Comment: 310.2 Result Comment: KELLY JAIN @610. TRY 09/04/25 Performed By: #### L 500.4050, L100.0500 #### [facility] [address] [place], [address] eGFR Normal >60 [facility] Comment on above: Order Comment: 310.2 Result Comment: KELLY JAIN @610. TRY 09/04/25 Performed By: #### L 500.4050, L100.0500 #### [facility] [address] [place], [address] GAP Normal 5-15 [facility] Comment on above: Order Comment: 310.2 Result Comment: KELLY JAIN @610. TRY 09/04/25 Performed By: #### L 500.4050, L100.0500 #### [facility] [address] [place], [address] GLU Normal 70-99 [facility] Comment on above: Order Comment: 310.2 Result Comment: KELLY JAIN @610. TRY 09/04/25 Performed By: #### L 500.4050, L100.0500 #### [facility] [address] [place], [address] Potassium Normal 3.3-5.1 [facility] Comment on above: Order Comment: 310.2 Result Comment: KELLY JAIN @610. TRY 09/04/25 Performed By: #### L 500.4050, L100.0500 #### [facility] [address] [place], [address] T BILI Normal 0.00-1.30 [facility] Comment on above: Order Comment: 310.2 Result Comment: KELLY JAIN @610. TRY 09/04/25 Performed By: #### L 500.4050, L100.0500 #### [facility] [address] [place], [address] T PROT Normal 5.9-8.4 [facility] Comment on above: Order Comment: 310.2 Result Comment: KELLY JAIN @610. TRY 09/04/25 Performed By: #### L 500.4050, L100.0500 #### [facility] [address] [place], [address] Comprehensive Metabolic Profil Normal 133-145 [facility] Comment on above: Order Comment: 310.2 Result Comment: KELLY JAIN @610. TRY 09/04/25 Performed By: #### L 500.4050, L100.0500 #### [facility] [address] [place], [address] CBC panel Auto (Bld)on 10-31 Erythrocyte distribution width (RBC) [Ratio] 14.4 % Normal 11.5-14.5 [facility] Comment on above: Performed By: #### 1 9123-9 #### BEVERLEY Poe ([id number]) [facility]) [id number] [place] [address] Hematocrit (Bld) [Volume fraction] 33.5 % Low 36.0-46.0 [facility] Comment on above: Performed By: #### 1 9123-9 #### BEVERLEY Poe ([id number]) [facility] ([facility]) [address] [place] [address] Hemoglobin (Bld) [Mass/Vol] 10.0 g/dL Low 12.0-16.0 [facility] Comment on above: Performed By: #### 1 9123-9 #### BEVERLEY Poe ([id number]) [facility]) [address] [place] [address] MCH (RBC) [Entitic mass] 31.2 pg Normal 26.0-34.0 [facility] Comment on above: Performed By: #### 1 9123-9 #### BEVERLEY Poe ([id number]) [facility] ([facility]) [address] [place] [address] MCHC (RBC) [Mass/Vol] 29.9 g/dL Low 32.0-36.0 [facility] Comment on above: Performed By: #### 1 9123-9 #### BEVERLEY Poe ([id number]) [facility]) [address] [place] [address] MCV (RBC) [Entitic vol] 104 fL High 80-100 [facility] Comment on above: Performed By: #### 1 9123-9 #### BEVERLEY Poe ([id number]) [facility]) [address] [place] [address] Nucleated RBC/100 WBC (Bld) [Ratio] 0.0 /100 WBCs Normal 0.0-0.0 [facility] Comment on above: Performed By: #### 1 9123-9 #### BEVERLEY Poe ([id number]) [facility] ([facility]) [address] [place] [address] Platelets (Bld) [#/Vol] 112 x10*3/uL Low 150-450 [facility] Comment on above: Performed By: #### 1 9123-9 #### BEVERLEY Poe ([id number]) [facility]) [address] [place] [address] RBC (Bld) [#/Vol] 3.21 x10*6/uL Low 4.00-5.20 [facility] Comment on above: Performed By: #### 1 9123-9 #### BEVERLEY Poe ([id number]) [facility]) [address] [place] [address] WBC (Bld) [#/Vol] 4.6 x10*3/uL Normal 4.4-11.3 [facility] Comment on above: Performed By: #### 1 9123-9 #### BEVERLEY Poe ([id number]) [facility]) [address] [place] [address] Comprehensive metabolic 2000 panelon 10-31-2023 Albumin BCP dye [Mass/Vol] 3.6 g/dL Normal 3.4-5.0 [facility] Comment on above: Performed By: #### 1 9123-9 #### BEVERLEY Poe ([id number]) [facility]) [address] [place] [address] ALP [Catalytic activity/Vol] 58 U/L Normal 33-136 [facility] Comment on above: Performed By: #### 1 9123-9 #### BEVERLEY Poe ([id number]) [facility]) [address] [place] [address] ALT With P-5'-P [Catalytic activity/Vol] 16 U/L Normal 7-45 [facility] Comment on above: Result Comment: Ирниа ents treated with Sulfasalazine may generate falsely decreased results for ALT. Performed By: #### 1 9123-9 #### BEVERLEY Poe ([id number]) [facility]) [address] [place] [address] Anion gap [Moles/Vol] 8 mmol/L Low 10-20 [facility] Comment on above: Performed By: #### 1 9123-9 #### BEVERLEY Poe ([id number]) [facility]) [address] [place] [address] AST With P-5'-P [Catalytic activity/Vol] 14 U/L Normal 9-39 [facility] Comment on above: Performed By: #### 1 9123-9 #### BEVERLEY Poe ([id number]) [facility]) [address] [place] [address] Bilirubin [Mass/Vol] 0.5 mg/dL Normal 0.0-1.2 [facility] Comment on above: Performed By: #### 1 9123-9 #### BEVERLEY Poe ([id number]) [facility]) [address] [place] [address] Calcium [Mass/Vol] 9.3 mg/dL Normal 8.6-10.6 [facility] Comment on above: Performed By: #### 1 9123-9 #### BEVERLEY Poe ([id number]) [facility]) [address] [place] [address] Chloride [Moles/Vol] 99 mmol/L Normal 98-107 [facility] Comment on above: Performed By: #### 1 9123-9 #### BEVERLEY Poe ([id number]) [facility]) [address] [place] [address] CO2 [Moles/Vol] 42 mmol/L Critically high 21-32 [facility] Comment on above: Performed By: #### 1 9123-9 #### BEVERLEY Poe ([id number]) [facility]) [address] [place] [address] Creatinine [Mass/Vol] 0.48 mg/dL Low 0.50-1.05 [facility] Comment on above: Performed By: #### 1 9123-9 #### BEVERLEY Poe ([id number]) [facility]) [address] [place] [address] GFR/1.73 sq M.predicted MDRD (S/P/Bld) [Vol rate/Area] mL/min/{1.73_m2} Normal >60 [facility] Comment on above: Result Comment: Calc ulations of estimated GFR are performed using the 2020 CKD-EPI Study Refit equation without the race variable for the IDMS-Traceable creatinine methods. https://jasn.asnjournals.org/content/early//ASN.01186 94237 Performed By: #### 1 9123-9 #### BEVERLEY Poe ([id number]) [facility]) [address] [place] [address] Glucose [Mass/Vol] 82 mg/dL Normal 74-99 [facility] Comment on above: Performed By: #### 1 9123-9 #### BEVERLEY Poe ([id number]) [facility]) [address] [place] [address] Potassium [Moles/Vol] 4.3 mmol/L Normal 3.5-5.3 [facility] Comment on above: Performed By: #### 1 9123-9 #### BEVERLEY Poe ([id number]) [facility]) [address] [place] [address] Protein [Mass/Vol] 6.8 g/dL Normal 6.4-8.2 [facility] Comment on above: Performed By: #### 1 9123-9 #### BEVERLEY Poe ([id number]) [facility]) [address] [place] [address] Sodium [Moles/Vol] 145 mmol/L Normal 136-145 [facility] Comment on above: Performed By: #### 1 9123-9 #### BEVERLEY CARSONER L ([id number]) [facility]) [address] [place] [address] Urea nitrogen [Mass/Vol] 21 mg/dL Normal 6-23 [facility] Comment on above: Performed By: #### 1 9123-9 #### BEVERLEY DODD L ([id number]) [facility]) [id number] [place] [address] Natriuretic peptide B [Mass/ Vol]on 10-31-2023 Interpretation and review of laboratory results Normal [facility] Natriuretic peptide B (Bld) [Mass/Vol] 98 pg/mL 0 - 99 pg/mL [facility] <100 pg/mL - Heart failure [...] contact their local laboratory for further information. [facility] Natriuretic peptide B (Bld) [Mass/Vol] 98 pg/mL Normal 0-99 [facility] Comment on above: Order Comment: <100 pg/mL - Heart failure -779 pg/mL - Intermediate probability of acute heart [...] #### 1 9123-9 #### BEVERLEY DODD L ([id number]) [facility]) [address] [place] [address] Blood type and Indirect anti body screen panel (Bld)on 10-28-2023 ABO group Nom (Bld) O Normal [facility] Comment on above: Performed By: #### 1 9123-9 #### BEVERLEY Poe ([id number]) [facility]) [address] [place] [address]284 Blood group antibody screen Ql Negative [facility] Comment on above: Performed By: #### 1 9123-9 #### BEVERLEY Poe ([id number]) [facility]) [address] [place] [address] D Ag Ql (Bld) Positive [facility] Comment on above: Performed By: #### 1 9123-9 #### BEVERLEY Poe ([id number]) [facility]) [address] [place] [address] CBC W Auto Differential pane l (Bld)on 10-28-2023 Basophils (Bld) [#/Vol] 0.01 x10*3/uL Normal 0.00-0.10 [facility] Comment on above: Performed By: #### 1 9123-9 #### BEVERLEY Poe ([id number]) [facility]) [address] [place] [address] Basophils/100 WBC (Bld) 0.3 % Normal 0.0-2.0 [facility] Comment on above: Performed By: #### 1 9123-9 #### BEVERLEY DODD L ([id number]) [facility] ([facility]) [address] [place] [address] Eosinophils (Bld) [#/Vol] 0.05 x10*3/uL Normal 0.00-0.40 [facility] Comment on above: Performed By: #### 1 9123-9 #### BEVERLEY Poe ([id number]) [facility]) [address] [place] [address]26[address] Eosinophils/100 WBC (Bld) 1.3 % Normal 0.0-6.0 [facility] Comment on above: Performed By: #### 1 9123-9 #### BEVERLEY Poe ([id number]) [facility]) [address] [place] [address]270 Erythrocyte distribution width (RBC) [Ratio] 14.5 % Normal 11.5-14.5 [facility] Comment on above: Performed By: #### 1 9123-9 #### BEVERLEY Poe ([id number]) [facility]) [address] [place] [address] Hematocrit (Bld) [Volume fraction] 32.3 % Low 36.0-46.0 [facility] Comment on above: Performed By: #### 1 9123-9 #### BEVERLEY Poe ([id number]) [facility]) [address] [place] [address] Hemoglobin (Bld) [Mass/Vol] 9.5 g/dL Low 12.0-16.0 [facility] Comment on above: Performed By: #### 1 9123-9 #### BEVERLEY Poe ([id number]) [facility]) [address] [place] [address] Immature granulocytes (Bld) [#/Vol] 0.02 x10*3/uL Normal 0.00-0.50 [facility] Comment on above: Performed By: #### 1 9123-9 #### BEVERLEY Poe ([id number]) [facility] [facility]) [address] [place] [address] 81302 Immature granulocytes/100 WBC (Bld) 0.5 % Normal 0.0-0.9 [facility] Comment on above: Result Comment: Sharda ture Granulocyte Count (IG) includes promyelocytes, myelocytes and metamyelocytes but does not include bands. Percent differential counts (%) should be interpreted in the context of the absolute cell counts (cells/UL). Performed By: #### 1 9123-9 #### BEVERLEY Poe ([id number]) [facility] ([facility]) [address] [place] [address] 94734 Lymphocytes (Bld) [#/Vol] 0.64 x10*3/uL Low 0.80-3.00 [facility] Comment on above: Performed By: #### 1 9123-9 #### BEVERLEY Poe ([id number]) [facility] ([facility]) [address] [place] [address] 23086 Lymphocytes/100 WBC (Bld) 16.0 % Normal 13.0-44.0 [facility] Comment on above: Performed By: #### 1 9123-9 #### BEVERLEY Poe ([id number]) [facility] ([facility]) [address] [place] [address] 80675 MCH (RBC) [Entitic mass] 30.2 pg Normal 26.0-34.0 [facility] Comment on above: Performed By: #### 1 9123-9 #### BEVERLEY Poe ([id number]) [facility] ([facility]) [address] [place] [address] 48939 MCHC (RBC) [Mass/Vol] 29.4 g/dL Low 32.0-36.0 [facility] Comment on above: Performed By: #### 1 9123-9 #### BEVERLEY Poe ([id number]) [facility] ([facility]) [address] [place] [address] 45813 MCV (RBC) [Entitic vol] 103 fL High 80-100 [facility] Comment on above: Performed By: #### 1 9123-9 #### BEVERLEY Poe ([id number]) [facility] ([facility]) [address] [place] [address] 55439 Monocytes (Bld) [#/Vol] 0.23 x10*3/uL Normal 0.05-0.80 [facility] Comment on above: Performed By: #### 1 9123-9 #### BEVERLEY Poe ([id number]) [facility] ([facility]) [address] [place] [address] [place] [address] Monocytes/100 WBC (Bld) 5.8 % Normal 2.0-10.0 [facility] Comment on above: Performed By: #### 1 9123-9 #### BEVERLEY Peo ([id number]) [facility] ([facility]) [address] [place] [address] Neutrophils (Bld) [#/Vol] 3.04 x10*3/uL Normal 1.60-5.50 [facility] Comment on above: Result Comment: Perc ent differential counts (%) should be interpreted in the context of the absolute cell counts (cells/uL). Performed By: #### 1 9123-9 #### BEVERLEY Poe ([id number]) [facility] ([facility]) [id number] [place] [address] 41391 Neutrophils/100 WBC (Bld) 76.1 % Normal 40.0-80.0 [facility] Comment on above: Performed By: #### 1 9123-9 #### BEVERLEY Poe ([id number]) [facility] ([facility]) [address] [place] [address] 83942 Nucleated RBC/100 WBC (Bld) [Ratio] 0.0 /100 WBCs Normal 0.0-0.0 [facility] Comment on above: Performed By: #### 1 9123-9 #### BEVERLEY Poe ([id number]) [facility] ([facility]) [address] [place] [address] Platelets (Bld) [#/Vol] 107 x10*3/uL Low 150-450 [facility] Comment on above: Performed By: #### 1 9123-9 #### BEVERLEY Poe ([id number]) [facility] ([facility]) [address] [place] [address] 54081 RBC (Bld) [#/Vol] 3.15 x10*6/uL Low 4.00-5.20 [facility] Comment on above: Performed By: #### 1 9123-9 #### BEVERLEY Poe ([id number]) [facility] ([facility]) [address] [place] [address] WBC (Bld) [#/Vol] 4.0 x10*3/uL Low 4.4-11.3 [facility] Comment on above: Performed By: #### 1 9123-9 #### BEVERLEY Poe ([id number]) [facility] ([facility]) [address] [place] [address] Comprehensive metabolic 2000 panelon 10-28-2023 Albumin BCP dye [Mass/Vol] 3.6 g/dL Normal 3.4-5.0 [facility] Comment on above: Performed By: #### 1 9123-9 #### BEVERLEY Poe ([id number]) [facility] ([facility]) [address] [place] [address] 38243 ALP [Catalytic activity/Vol] 66 U/L Normal 33-136 [facility] Comment on above: Performed By: #### 1 9123-9 #### BEVERLEY Poe ([id number]) [facility] ([facility]) [address] [place] [address] ALT With P-5'-P [Catalytic activity/Vol] 18 U/L Normal 7-45 [facility] Comment on above: Result Comment: Ирина ents treated with Sulfasalazine may generate falsely decreased results for ALT. Performed By: #### 1 9123-9 #### BEVERLEY Poe ([id number]) [facility] ([facility]) [address] [place] [address] Anion gap [Moles/Vol] 9 mmol/L Low 10-20 [facility] Comment on above: Performed By: #### 1 9123-9 #### BEVERLEY Poe ([id number]) [facility] ([facility]) [address] [place] [address] AST With P-5'-P [Catalytic activity/Vol] 16 U/L Normal 9-39 [facility] Comment on above: Performed By: #### 1 9123-9 #### BEVERLEY Poe ([id number]) [facility] ([facility]) [address] [place] [address] Bilirubin [Mass/Vol] 0.6 mg/dL Normal 0.0-1.2 [facility] Comment on above: Performed By: #### 1 9123-9 #### BEVERLEY CARSONER L ([id number]) [facility] ([facility]) [address] [place] [address] Calcium [Mass/Vol] 9.4 mg/dL Normal 8.6-10.6 [facility] Comment on above: Performed By: #### 1 9123-9 #### BEVERLEY CARSONER L ([id number]) [facility] ([facility]) [address] [place] [address] Chloride [Moles/Vol] 100 mmol/L Normal 98-107 [facility] Comment on above: Performed By: #### 1 9123-9 #### BEVERLEY PATELTZER L ([id number]) [facility] ([facility]) [address] [place] [address] CO2 [Moles/Vol] 43 mmol/L Critically high 21-32 [facility] Comment on above: Performed By: #### 1 9123-9 #### BEVERLEY DODD L ([id number]) [facility] ([facility]) [address] [place] [address] Creatinine [Mass/Vol] 0.62 mg/dL Normal 0.50-1.05 [facility] Comment on above: Performed By: #### 1 9123-9 #### BEVERLEY PATELTZER L ([id number]) [facility] ([facility]) [address] [place] [address] GFR/1.73 sq M.predicted MDRD (S/P/Bld) [Vol rate/Area] mL/min/{1.73_m2} Normal >60 [facility] Comment on above: Result Comment: Calc ulations of estimated GFR are performed using the 2020 CKD-EPI Study Refit equation without the race variable for the IDMS-Traceable creatinine methods. https://brunasn.priscillajournals.org/content//ASN.38514 49953 Performed By: #### 1 9123-9 #### BEVERLEY Poe ([id number]) [facility] ([facility]) [address] [place] [address] 41115 Glucose [Mass/Vol] 101 mg/dL High 74-99 [facility] Comment on above: Performed By: #### 1 9123-9 #### BEVERLEY Poe ([id number]) [facility] ([facility]) [address] [place] [address] 93068 Potassium [Moles/Vol] 4.5 mmol/L Normal 3.5-5.3 [facility] Comment on above: Performed By: #### 1 9123-9 #### BEVERLEY Poe ([id number]) [facility] ([facility]) [address] [place] [address] 04947 Protein [Mass/Vol] 7.0 g/dL Normal 6.4-8.2 [facility] Comment on above: Performed By: #### 1 9123-9 #### BEVERLEY Poe ([id number]) [facility] ([facility]) [address] [place] [address] 86839 Sodium [Moles/Vol] 147 mmol/L High 136-145 [facility] Comment on above: Performed By: #### 1 9123-9 #### BEVERLEY Poe ([id number]) [facility] ([facility]) [address] [place] [address] 91348 Urea nitrogen [Mass/Vol] 19 mg/dL Normal 6-23 [facility] Comment on above: Performed By: #### 1 9123-9 #### BEVERLEY Poe ([id number]) [facility] ([facility]) [address] [place] [address] 69786 ECG 12-LEADon 10-28-2023 ECG 12-LEAD Ventricular Rate 76 Atrial Rate 76 P-R Interval 156 QRS Duration 132 Q-T Interval 428 QTC Calculation(Bazett) 481 P Ferdinand 57 R Ferdinand -49 T Ferdinand 51 QRS Count 12 Q Onset 210 [...] Piedra ([id number]) on 11/11/2023 6:42:46 PM Normal [facility] Prealbuminon 10-28-2023 Prealbumin [Mass/Vol] 18.4 mg/dL Normal 18.0-40.0 [facility] Comment on above: Performed By: #### 1 9123-9 #### BEVERLEY Poe ([id number]) [facility] ([facility]) [address] [place] [address] Staphylococcus aureus.methic illin resistant isolateon 10-28-2023 MRSA isol Org specific cx Ql (Nose) Test: Staphylococcus aureus/MRSA colonization, Culture Specimen Source: Anterior Nares Specimen Type: Swab Specimen Date: 10/28/2023 9:56 AM Result Date: 10/29/2023 1:28 PM Result Status: Final result Abnormal: No Resulting Lab: [facility] [address] [place] [address] CULTURE No Staphylococcus aureus isolated [facility] Comment on above: Performed By: #### 1 9123-9 #### BEVERLEY Poe ([id number]) [facility] ([facility]) [address] [place] [address] Basophil percentageOrdered B y: Jonathanfausto Dillard on 10-11-2023 Bilirubin [Mass/Vol] 0.30 mg/dL 0.20-1.00 [facility] Comment on above: For patients on eltr ombopag therapy, use of [place] TBIL is not recommended. Chloride [Moles/Vol] 101 mmol/L 98-107 [facility] Glucose [Mass/Vol] 102 mg/dL 74-106 [facility] Comment on above: Fasting Glucose resu lt from 100 to 125 mg/dL suggests IMPAIRED HOMEOSTASIS per A.D.A. criteria. Potassium [Moles/Vol] 3.7 mmol/L 3.5-5.1 [facility] Protein [Mass/Vol] 6.4 g/dL 6.4-8.2 [facility] Sodium [Moles/Vol] 144 mmol/L 136-145 [facility] WBC (Bld) [#/Vol] 3.3 10*3/uL 4.4-11.0 [facility] Blood erythrocytes count (nu mber/volume)Ordered By: Jonathan Dillard on 10-11-2023 RBC (Bld) [#/Vol] 2.77 10*6/uL 4.2-5.4 [facility] Blood hemoglobin measurement (mass/volume)Ordered By: Jonathan Dillard on 10-11-2023 Hemoglobin (Bld) [Mass/Vol] 8.2 g/dL 12.0-15.0 [facility] Blood platelet mean volumeOr dered By: Jonathan Dillard on 10-11-2023 Platelet mean volume (Bld) [Entitic vol] 8.8 fL 6.2-12.0 [facility] Determination of erythrocyte mean corpuscular volume (MCV)Ordered By: Jonathan Dillard on 10-11-2023 MCV (RBC) [Entitic vol] 105.8 fL 81-99 [facility] Hematocrit Auto (Bld) [Volum e fraction]Ordered By: Jonathan Dillard on 10-11-2023 Hematocrit (Bld) [Volume fraction] 29.3 % 37-47 [facility] Laboratory - Chemistry and C hemistry - challengeOrdered By: Jonathan Dillard on 10-11-2023 ALP [Catalytic activity/Vol] 51 U/L 45-117 [facility] ALT [Catalytic activity/Vol] 18 U/L 13-56 [facility] CO2 [Moles/Vol] 41.0 mmol/L 21.0-32.0 [facility] Globulin (S) [Mass/Vol] 4.1 g/dL 2.2-4.2 [facility] Urea nitrogen/Creatinine [Mass ratio] 36.1 mg/mg 10-20 [facility] Laboratory - Hematology and Cell countsOrdered By: Jonathan Dillard on 10-11-2023 Erythrocyte distribution width (RBC) [Entitic vol] 54.5 fL 35.1-43.9 [facility] Erythrocyte distribution width (RBC) [Ratio] 14.0 % 11.6-14.6 [facility] MCH (RBC) [Entitic mass] 29.6 pg 27.0-32.0 [facility] MCHC Auto (RBC) [Mass/Vol]Or dered By: Jonathan Dillard on 10-11-2023 MCHC (RBC) [Mass/Vol] 28.0 g/dL 32-36 [facility] No Panel InformationOrdered By: Jonathan Dillard on 10-11-2023 Estimated GFR (MDRD) Amer 156 mL/min >60 [facility] Comment on above: GFR Calc Estimated GFR (MDRD) Non-Af Amer 129 mL/min >60 [facility] Comment on above: Non- GFR Calc Platelets bldOrdered By: Mervat Dillard on 10-11-2023 Platelets (Bld) [#/Vol] 116 10*3/uL 150-450 [facility] Serum or plasma albumin celina urement (mass/volume)Ordered By: Jonathan Dillard on 10-11-2023 Albumin [Mass/Vol] 2.3 g/dL 3.2-5.0 [facility] Serum or plasma albumin/glob ulin mass ratioOrdered By: Jonathan Dillard on 10-11-2023 Albumin/Globulin [Mass ratio] 0.6 {ratio} 0.9-2.4 [facility] Serum or plasma calcium celina urement (mass/volume)Ordered By: Jonathan Dillard on 10-11-2023 Calcium [Mass/Vol] 7.8 mg/dL 8.5-10.1 [facility] Serum or plasma creatinine m easurement (mass/volume)Ordered By: Jonathan Dillard on 10-11-2023 Creatinine [Mass/Vol] 0.50 mg/dL 0.55-1.02 [facility] Comment on above: The validity of the calculated GFR & GFRAA in patients over 70 years has not been determined. Clinical correlation is essential. Serum or plasma urea nitroge n measurement (mass/volume)Ordered By: Jonathan Dillard on 10-11-2023 Urea nitrogen [Mass/Vol] 18 mg/dL 7-18 [facility] Thin prep Papanicolaou smear with manual screeningOrdered By: Jonathan Dillard on 10-11-2023 Thin prep Papanicolaou smear with manual screening 14 U/L 15-37 [facility] Thin prep Papanicolaou smear with manual screening 2 5-15 [facility] Laboratory - Chemistry and C hemistry - challengeOrdered By: Jonathan Dillard on 10-04-2023 Cobalamin (Vitamin B12) [Mass/Vol] 926 pg/mL 211-911 [facility] Basophil percentageOrdered B y: Jonathan Dillard on 10-03-2023 Bilirubin [Mass/Vol] 0.40 mg/dL 0.20-1.00 [facility] Comment on above: For patients on eltr ombopag therapy, use of [place] TBIL is not recommended. Chloride [Moles/Vol] 103 mmol/L 98-107 [facility] Cholesterol [Mass/Vol] 112 mg/dL <200 [facility] Comment on above: <200 mg/dL Desirable 200-240 mg/dL Borderline >240 mg/dL High Risk Glucose [Mass/Vol] 133 mg/dL 74-106 [facility] Comment on above: Fasting Glucose resu lt greater than or equal to 126 mg/dL suggests DIABETES MELLITUS per A.D.A. criteria. Potassium [Moles/Vol] 3.8 mmol/L 3.5-5.1 [facility] Protein [Mass/Vol] 6.2 g/dL 6.4-8.2 [facility] Sodium [Moles/Vol] 144 mmol/L 136-145 [facility] Triglyceride [Mass/Vol] 156 mg/dL <199 [facility] Comment on above: The drugs [...] 10-03-2023 RBC (Bld) [#/Vol] 2.77 10*6/uL 4.2-5.4 [facility] Blood hemoglobin measurement (mass/volume)Ordered By: Jonathan Dillard on 10-03-2023 Hemoglobin (Bld) [Mass/Vol] 8.2 g/dL 12.0-15.0 [facility] Blood platelet mean volumeOr dered By: Jonathan Dillard on 10-03-2023 Platelet mean volume (Bld) [Entitic vol] 9.3 fL 6.2-12.0 [facility] Determination of erythrocyte mean corpuscular volume (MCV)Ordered By: Jonathan Dillard on 10-03-2023 MCV (RBC) [Entitic vol] 104.0 fL 81-99 [facility] Hematocrit Auto (Bld) [Volum e fraction]Ordered By: Jonathan Dillard on 10-03-2023 Hematocrit (Bld) [Volume fraction] 28.8 % 37-47 [facility] Laboratory - Chemistry and C hemistry - challengeOrdered By: Jonathan Dillard on 10-03-2023 ALP [Catalytic activity/Vol] 42 U/L 45-117 [facility] ALT [Catalytic activity/Vol] 16 U/L 13-56 [facility] CO2 [Moles/Vol] 40.0 mmol/L 21.0-32.0 [facility] Globulin (S) [Mass/Vol] 3.9 g/dL 2.2-4.2 [facility] Urea nitrogen/Creatinine [Mass ratio] 35.6 mg/mg 10-20 [facility] Laboratory - Hematology and Cell countsOrdered By: Jonathan Dillard on 10-03-2023 Erythrocyte distribution width (RBC) [Entitic vol] 54.0 fL 35.1-43.9 [facility] Erythrocyte distribution width (RBC) [Ratio] 14.2 % 11.6-14.6 [facility] MCH (RBC) [Entitic mass] 29.6 pg 27.0-32.0 [facility] MCHC Auto (RBC) [Mass/Vol]Or dered By: Jonathan Dillard on 10-03-2023 MCHC (RBC) [Mass/Vol] 28.5 g/dL 32-36 [facility] No Panel InformationOrdered By: Jonathan Dillard on 10-03-2023 Estimated GFR (MDRD) Amer 153 mL/min >60 [facility] Comment on above: GFR Calc Estimated GFR (MDRD) Non-Af Amer 127 mL/min >60 [facility] Comment on above: Non- GFR Calc Platelets bldOrdered By: Mervat Dillard on 10-03-2023 Platelets (Bld) [#/Vol] 104 10*3/uL 150-450 [facility] Serum or plasma albumin celina urement (mass/volume)Ordered By: Jonathan Dillard on 10-03-2023 Albumin [Mass/Vol] 2.3 g/dL 3.2-5.0 [facility] Serum or plasma albumin/glob ulin mass ratioOrdered By: Jonathan Dillard on 10-03-2023 Albumin/Globulin [Mass ratio] 0.6 {ratio} 0.9-2.4 [facility] Serum or plasma calcium celina urement (mass/volume)Ordered By: Jonathan Dillard on 10-03-2023 Calcium [Mass/Vol] 8.4 mg/dL 8.5-10.1 [facility] Serum or plasma cholesterol in HDL measurement (mass/volume)Ordered By: Jonathan Dillard on 10-03-2023 Cholesterol in HDL [Mass/Vol] 41 mg/dL >40 [facility] Comment on above: The drugs N-Acetylcy steine and Metamizole may falsely depress this assay. Reference Range HDL <40 mg/dL Low HDL Cholesterol HDL >or= 60 mg/dL High HDL Cholesterol Serum or plasma cholesterol in VLDL measurement (mass/volume)Ordered By: Jonathan Dillard on 10-03-2023 Cholesterol in VLDL [Mass/Vol] 31 mg/dL 5-40 [facility] Serum or plasma creatinine m easurement (mass/volume)Ordered By: Jonathan Dillard on 10-03-2023 Creatinine [Mass/Vol] 0.51 mg/dL 0.55-1.02 [facility] Comment on above: The validity of the calculated GFR & GFRAA in patients over 70 years has not been determined. Clinical correlation is essential. Serum or plasma low density lipoprotein (LDL) cholesterol measurement (mass/volume)Ordered By: Jonathan Dillard on 10-03-2023 Cholesterol in LDL [Mass/Vol] 40 mg/dL 0-130 [facility] Serum or plasma urea nitroge n measurement (mass/volume)Ordered By: Jonathan Dillard on 10-03-2023 Urea nitrogen [Mass/Vol] 18 mg/dL 7-18 [facility] Thin prep Papanicolaou smear with manual screeningOrdered By: Jonathan Dillard on 10-03-2023 Thin prep Papanicolaou smear with manual screening 15 U/L 15-37 [facility] Thin prep Papanicolaou smear with manual screening 1 5-15 [facility] Whole blood hemoglobin A1c/t otal hemoglobin ratio (mass fraction)Ordered By: Jonathan Dillard on 10-03-2023 HbA1c (Bld) [Mass fraction] % 3.8-5.6 [facility] Comment on above: Normal < 5.7 % Predi abetic 5.7 - 6.4 % Diabetic >or= 6.5 % Please note range changes. CBC panel Auto (Bld)on 09-28 Erythrocyte distribution width (RBC) [Ratio] 14.0 % 11.5 - 14.5 % [facility] Hematocrit (Bld) [Volume fraction] 28.8 % Low 36.0 - 46.0 % [facility] Hemoglobin (Bld) [Mass/Vol] 8.4 g/dL Low 12.0 - 16.0 g/dL [facility] Interpretation and review of laboratory results Abnormal [facility] MCH (RBC) [Entitic mass] 30.1 pg 26.0 - 34.[address] [facility] MCHC (RBC) [Mass/Vol] 29.2 g/dL Low 32.0 - 36.0 g/dL [facility] MCV (RBC) [Entitic vol] 103 fL High 80 - [address] [facility] Nucleated RBC/100 WBC (Bld) [Ratio] 0.0 % [facility] Platelets (Bld) [#/Vol] 113 10*3/uL Low [facility] RBC (Bld) [#/Vol] 2.79 10*6/uL [facility] WBC (Bld) [#/Vol] 3.5 10*3/uL [facility] Erythrocyte distribution width (RBC) [Ratio] 14.0 % Normal 11.5-14.5 [facility] Comment on above: Performed By: #### 1 9123-9 #### BEVERLEY Poe ([id number]) [facility] ([facility]) [address] [place] [address] 01879 Hematocrit (Bld) [Volume fraction] 28.8 % Low 36.0-46.0 [facility] Comment on above: Performed By: #### 1 9123-9 #### BEVERLEY Poe ([id number]) [facility] ([facility]) [address] [place] [address] 06083 Hemoglobin (Bld) [Mass/Vol] 8.4 g/dL Low 12.0-16.0 [facility] Comment on above: Performed By: #### 1 9123-9 #### BEVERLEY Poe ([id number]) [facility] ([facility]) [address] [place] [address] 04319 MCH (RBC) [Entitic mass] 30.1 pg Normal 26.0-34.0 [facility] Comment on above: Performed By: #### 1 9123-9 #### BEVERLEY Poe ([id number]) [facility] ([facility]) [address] [place] [address] 18445 MCHC (RBC) [Mass/Vol] 29.2 g/dL Low 32.0-36.0 [facility] Comment on above: Performed By: #### 1 9123-9 #### BEVERLEY Poe ([id number]) [facility] ([facility]) [address] [place] [address] 52378 MCV (RBC) [Entitic vol] 103 fL High 80-100 [facility] Comment on above: Performed By: #### 1 9123-9 #### BEVERLEY Poe ([id number]) [facility] ([facility]) [address] [place] [address] Nucleated RBC/100 WBC (Bld) [Ratio] 0.0 /100 WBCs Normal 0.0-0.0 [facility] Comment on above: Performed By: #### 1 9123-9 #### BEVERLEY Poe ([id number]) [facility] ([facility]) [address] [place] [address] Platelets (Bld) [#/Vol] 113 x10*3/uL Low 150-450 [facility] Comment on above: Performed By: #### 1 9123-9 #### BEVERLEY Poe ([id number]) [facility] ([facility]) [id number] [place] [address] 93284 RBC (Bld) [#/Vol] 2.79 x10*6/uL Low 4.00-5.20 [facility] Comment on above: Performed By: #### 1 9123-9 #### BEVERLEY Poe ([id number]) [facility] ([facility]) [address] [place] [address] 99811 WBC (Bld) [#/Vol] 3.5 x10*3/uL Low 4.4-11.3 [facility] Comment on above: Performed By: #### 1 9123-9 #### BEVERLEY Poe ([id number]) [facility] ([facility]) [address] [place] [address] [facility] Heart and Coronary arter ies WO and W contrast Jack 09-28-2023 [facility] Work Phone: [facility] Heart and Coronary arter ies WO and W contrast IVOrdered By: Yair Pham on 09-28-[address] [facility] Work Phone: Magnesiumon 09-28-2023 Magnesium [Mass/Vol] 2.13 mg/dL Normal 1.60-2.40 [facility] Comment on above: Performed By: #### 1 9123-9 #### BEVERLEY Poe ([id number]) [facility] ([facility]) [address] [place] [address] Renal function 2000 panelon 09-28-2023 Albumin BCP dye [Mass/Vol] 2.9 g/dL Low 3.4-5.0 [facility] Comment on above: Performed By: #### 1 9123-9 #### BEVERLEY Poe ([id number]) [facility] ([facility]) [address] [place] [address] Anion gap [Moles/Vol] 11 mmol/L Normal 10-20 [facility] Comment on above: Performed By: #### 1 9123-9 #### BEVERLEY Poe ([id number]) [facility] ([facility]) [address] [place] [address] 37654 Calcium [Mass/Vol] 8.9 mg/dL Normal 8.6-10.6 [facility] Comment on above: Performed By: #### 1 9123-9 #### BEVERLEY Poe ([id number]) [facility] ([facility]) [address] [place] [address] 19069 Chloride [Moles/Vol] 100 mmol/L Normal 98-107 [facility] Comment on above: Performed By: #### 1 9123-9 #### BEVERLEY Poe ([id number]) [facility] ([facility]) [address] [place] [address] 64549 CO2 [Moles/Vol] 40 mmol/L Critically high 21-32 [facility] Comment on above: Performed By: #### 1 9123-9 #### BEVERLEY Poe ([id number]) [facility] ([facility]) [address] [place] [address] Creatinine [Mass/Vol] 0.44 mg/dL Low 0.50-1.05 [facility] Comment on above: Performed By: #### 1 9123-9 #### BEVERLEY Poe ([id number]) [facility] ([facility]) [address] [place] [address] 73230 GFR/1.73 sq M.predicted MDRD (S/P/Bld) [Vol rate/Area] mL/min/{1.73_m2} Normal >60 [facility] Comment on above: Result Comment: Calc ulations of estimated GFR are performed using the 2020 CKD-EPI Study Refit equation without the race variable for the IDMS-Traceable creatinine methods. https://jasn.asnjournals.org/content//ASN.70446 87236 Performed By: #### 1 9123-9 #### BEVERLEY Poe ([id number]) [facility] ([facility]) [address] [place] [address] Glucose [Mass/Vol] 143 mg/dL High 74-99 [facility] Comment on above: Performed By: #### 1 9123-9 #### BEVERLEY Poe ([id number]) [facility] ([facility]) [address] [place] [address] Phosphate [Mass/Vol] 2.8 mg/dL Normal 2.5-4.9 [facility] Comment on above: Result Comment: The performance characteristics of phosphorus testing in heparinized plasma have been validated by the individual laboratory site where testing is performed. Testing on heparinized plasma is not approved by the FDA; however, such approval is not necessary. Performed By: #### 1 9123-9 #### BEVERLEY Poe ([id number]) [facility] ([facility]) [address] [place] [address] Potassium [Moles/Vol] 3.8 mmol/L Normal 3.5-5.3 [facility] Comment on above: Performed By: #### 1 9123-9 #### BEVERLEY Peo ([id number]) [facility] ([facility]) [address] [place] [address] Sodium [Moles/Vol] 147 mmol/L High 136-145 [facility] Comment on above: Performed By: #### 1 9123-9 #### BEVERLEY Poe ([id number]) [facility] ([facility]) [address] [place] [address] Urea nitrogen [Mass/Vol] 11 mg/dL Normal 6-23 [facility] Comment on above: Performed By: #### 1 9123-9 #### BEVERLEY Poe ([id number]) [facility] ([facility]) [address] [place] [address] 83005 SARS coronavirus 2 RNAon SARS-CoV-2 (COVID-19) RNA ISA+probe Ql (Resp) Not detected Normal Not Detected [facility] Comment on above: Order Comment: This [...] and has been validated for use at [facility]. Negative results do not preclude COVID-19 infections and should not be used as the sole basis for diagnosis, treatment, or other management decisions. Performed By: #### 1 9123-9 #### BEVERLEY Poe ([id number]) [facility] ([facility]) [address] [place] [address] 09108 SARS-CoV-2 (COVID-19) RNA NA A+probe Ql (Resp)on 09-28-2023 Interpretation and review of laboratory results Normal [facility] SARS-CoV-2 RT PCRon 09-28-20 SARS-CoV-2 (COVID-19) RNA ISA+probe Ql (Resp) Not detected Not Detected [facility] CBC panel Auto (Bld)on 09-27 Erythrocyte distribution width (RBC) [Ratio] 14.3 % 11.5 - 14.5 % [facility] Hematocrit (Bld) [Volume fraction] 28.0 % Low 36.0 - 46.0 % [facility] Hemoglobin (Bld) [Mass/Vol] 8.0 g/dL Low 12.0 - 16.0 g/dL [facility] Interpretation and review of laboratory results Abnormal [facility] MCH (RBC) [Entitic mass] 29.7 pg 26.0 - 34.[address] [facility] MCHC (RBC) [Mass/Vol] 28.6 g/dL Low 32.0 - 36.0 g/dL [facility] MCV (RBC) [Entitic vol] 104 fL High 80 - [address] [facility] Nucleated RBC/100 WBC (Bld) [Ratio] 0.0 % [facility] Platelets (Bld) [#/Vol] 115 10*3/uL Low [facility] RBC (Bld) [#/Vol] 2.69 10*6/uL [facility] WBC (Bld) [#/Vol] 3.2 10*3/uL [facility] Erythrocyte distribution width (RBC) [Ratio] 14.3 % Normal 11.5-14.5 [facility] Comment on above: Performed By: #### 2 341-6 #### BEVERLEY Poe ([id number]) [facility] ([facility]) [address] [place] [address] 93077 Hematocrit (Bld) [Volume fraction] 28.0 % Low 36.0-46.0 [facility] Comment on above: Performed By: #### 2 341-6 #### BEVERLEY Poe ([id number]) [facility] ([facility]) [address] [place] [address] 36599 Hemoglobin (Bld) [Mass/Vol] 8.0 g/dL Low 12.0-16.0 [facility] Comment on above: Performed By: #### 2 341-6 #### BEVERLEY Poe ([id number]) [facility] ([facility]) [address] [place] [address] 61987 MCH (RBC) [Entitic mass] 29.7 pg Normal 26.0-34.0 [facility] Comment on above: Performed By: #### 2 341-6 #### BEVERLEY Poe ([id number]) [facility] ([facility]) [address] [place] [address] MCHC (RBC) [Mass/Vol] 28.6 g/dL Low 32.0-36.0 [facility] Comment on above: Performed By: #### 2 341-6 #### BEVERLEY Poe ([id number]) [facility] ([facility]) [address] [place] [address] MCV (RBC) [Entitic vol] 104 fL High 80-100 [facility] Comment on above: Performed By: #### 2 341-6 #### BEVERLEY Poe ([id number]) [facility] ([facility]) [address] [place] [address] 84708 Nucleated RBC/100 WBC (Bld) [Ratio] 0.0 /100 WBCs Normal 0.0-0.0 [facility] Comment on above: Performed By: #### 2 341-6 #### BEVERLEY Peo ([id number]) [facility] ([facility]) [address] [place] [address] Platelets (Bld) [#/Vol] 115 x10*3/uL Low 150-450 [facility] Comment on above: Performed By: #### 2 341-6 #### BEVERLEY Poe ([id number]) [facility] ([facility]) [address] [place] [address] RBC (Bld) [#/Vol] 2.69 x10*6/uL Low 4.00-5.20 [facility] Comment on above: Performed By: #### 2 341-6 #### BEVERLEY Poe ([id number]) [facility] ([facility]) [address] [place] [address] 20987 WBC (Bld) [#/Vol] 3.2 x10*3/uL Low 4.4-11.3 [facility] Comment on above: Performed By: #### 2 341-6 #### BEVERLEY Poe ([id number]) [facility] ([facility]) [address] [place] [address] Cobalaminson 09-27-2023 Cobalamin (Vitamin B12) [Mass/Vol] 411 pg/mL Normal 211-911 [facility] Comment on above: Performed By: #### 1 9123-9 #### BEVERLEY Poe ([id number]) [facility] ([facility]) [address] [place] [address] 55122 Electrocardiogram, 12-lead P RN ACS symptomsOrdered By: Simon Piedra on 09-27-2023 Atrial Rate [address] [facility] Work Phone: [phone] P Ferdinand [address] [facility] Work Phone: [phone] P Offset [address] [facility] Work Phone: [phone] P Onset [address] [facility] Work Phone: [phone] MO Interval [address] [facility] Work Phone: [phone] Q Onset [address] [facility] Work Phone: [phone] QRS Count [address] [facility] Work Phone: [phone] QRS Duration [address] [facility] Work Phone: [phone] QT Interval [address] [facility] Work Phone: [phone] QTC Calculation(Bazett) 462 [facility] Work Phone: [phone] QTC Fredericia [address] [facility] Work Phone: [phone] R Ferdinand -[address] [facility] Work Phone: [phone] T Ferdinand [address] [facility] Work Phone: [phone] T Offset [address] [facility] Work Phone: [phone] Ventricular Rate [address] [facility] Work Phone: [phone] [facility] Work Phone: [phone] Electrocardiogram, 12-lead P RN ACS symptomson 09-27-2023 [facility] Work Phone: Folateon 09-27-2023 Folate [Mass/Vol] 16.2 ng/mL Normal >5.0 [facility] Comment on above: Order Comment: Low < 3.4Borderline 3.4-5.0Normal >5.0Patients receiving more than 5 mg/day of biotin may have interference in test results. A sample should be taken no sooner than eight hours after previous dose. Contact the testing laboratory for additional information. Performed By: #### 1 9123-9 #### BEVERLEY Poe ([id number]) [facility] ([facility]) [address] [place] [address] 12964 Magnesiumon 09-27-2023 Magnesium [Mass/Vol] 2.13 mg/dL 1.60 - 2.40 mg/dL [facility] Magnesium [Mass/Vol] 2.13 mg/dL Normal 1.60-2.40 [facility] Comment on above: Performed By: #### 2 341-6 #### BEVERLEY Poe ([id number]) [facility] ([facility]) [address] [place] [address] 05008 Magnesium [Mass/Vol]on 09-27 Interpretation and review of laboratory results Normal [facility] No Panel Informationon 09-[address] [facility] Renal function 2000 panelon 09-27-2023 Albumin BCP dye [Mass/Vol] 2.8 g/dL Low 3.4 - 5.0 g/dL [facility] Anion gap [Moles/Vol] 7 mmol/L Low 10 - 2 0 mmol/L [facility] Calcium [Mass/Vol] 8.7 mg/dL 8.6 - 10. 6 mg/dL [facility] Chloride [Moles/Vol] 102 mmol/L 98 - 10 7 mmol/L [facility] CO2 [Moles/Vol] 42 mmol/L Critically high 21 - 32 mmol/L [facility] Creatinine [Mass/Vol] 0.41 mg/dL Low 0.50 - 1.05 mg/dL [facility] GFR/1.73 sq M.predicted MDRD (S/P/Bld) [Vol rate/Area] - PINF [facility] Glucose [Mass/Vol] 142 mg/dL High 74 - 99 mg/dL [facility] Interpretation and review of laboratory results Abnormal [facility] Phosphate [Mass/Vol] 3.2 mg/dL 2.5 - 4 .9 mg/dL [facility] Potassium [Moles/Vol] 3.9 mmol/L 3.5 - 5.3 mmol/L [facility] Sodium [Moles/Vol] 147 mmol/L High 136 - 145 mmol/L [facility] Urea nitrogen [Mass/Vol] 12 mg/dL 6 - 23 mg/dL [facility] Albumin BCP dye [Mass/Vol] 2.8 g/dL Low 3.4-5.0 [facility] Comment on above: Performed By: #### 2 341-6 #### BEVERLEY Poe ([id number]) [facility] ([facility]) [address] [place] [address] 34612 Anion gap [Moles/Vol] 7 mmol/L Low 10-20 [facility] Comment on above: Performed By: #### 2 341-6 #### BEVERLEY Poe ([id number]) [facility] ([facility]) [address] [place] [address] 91241 Calcium [Mass/Vol] 8.7 mg/dL Normal 8.6-10.6 [facility] Comment on above: Performed By: #### 2 341-6 #### BEVERLEY Poe ([id number]) [facility] ([facility]) [address] [place] [address] 31255 Chloride [Moles/Vol] 102 mmol/L Normal 98-107 [facility] Comment on above: Performed By: #### 2 341-6 #### BEVERLEY Poe ([id number]) [facility] ([facility]) [address] [place] [address] 47421 CO2 [Moles/Vol] 42 mmol/L Critically high 21-32 [facility] Comment on above: Performed By: #### 2 341-6 #### BEVERLEY Poe ([id number]) [facility] ([facility]) [address] [place] [address] Creatinine [Mass/Vol] 0.41 mg/dL Low 0.50-1.05 [facility] Comment on above: Performed By: #### 2 341-6 #### BEVERLEY Poe ([id number]) [facility] ([facility]) [address] [place] [address] GFR/1.73 sq M.predicted MDRD (S/P/Bld) [Vol rate/Area] mL/min/{1.73_m2} Normal >60 [facility] Comment on above: Result Comment: Calc ulations of estimated GFR are performed using the 2020 CKD-EPI Study Refit equation without the race variable for the IDMS-Traceable creatinine methods. https://jasn.asnjournals.org/content/early/ASN.77755 02132 Performed By: #### 2 341-6 #### BEVERLEY Poe ([id number]) [facility] ([facility]) [address] [place] [address] Glucose [Mass/Vol] 142 mg/dL High 74-99 [facility] Comment on above: Performed By: #### 2 341-6 #### BEVERLEY Poe ([id number]) [facility] ([facility]) [address] [place] [address] Phosphate [Mass/Vol] 3.2 mg/dL Normal 2.5-4.9 [facility] Comment on above: Result Comment: The performance characteristics of phosphorus testing in heparinized plasma have been validated by the individual laboratory site where testing is performed. Testing on heparinized plasma is not approved by the FDA; however, such approval is not necessary. Performed By: #### 2 341-6 #### BEVERLEY Poe ([id number]) [facility] ([facility]) [address] [place] [address] Potassium [Moles/Vol] 3.9 mmol/L Normal 3.5-5.3 [facility] Comment on above: Performed By: #### 2 341-6 #### BEVERLEY Poe ([id number]) [facility] ([facility]) [address] [place] [address] Sodium [Moles/Vol] 147 mmol/L High 136-145 [facility] Comment on above: Performed By: #### 2 341-6 #### BEVERLEY Poe ([id number]) [facility] ([facility]) [address] [place] [address] Urea nitrogen [Mass/Vol] 12 mg/dL Normal 6- [facility] Comment on above: Performed By: #### 2 341-6 #### BEVERLEY Poe ([id number]) [facility] ([facility]) [address] [place] [address] 94763 SARS coronavirus 2 RNAon SARS-CoV-2 (COVID-19) RNA ISA+probe Ql (Resp) Not detected Normal Not Detected [facility] Comment on above: Order Comment: This [...] and has been validated for use at [facility]. Negative results do not preclude COVID-19 infections and should not be used as the sole basis for diagnosis, treatment, or other management decisions. Performed By: #### 2 341-6 #### BEVERLEY Poe ([id number]) [facility] ([facility]) [address] [place] [address] 48339 SARS-CoV-2 (COVID-19) RNA NA A+probe Ql (Resp)on 09-27-2023 Interpretation and review of laboratory results Normal [facility] SARS-CoV-2 RT PCRon 09-27-20 SARS-CoV-2 (COVID-19) RNA ISA+probe Ql (Resp) Not detected Not Detected [facility] CBC panel Auto (Bld)on 09-26 Erythrocyte distribution width (RBC) [Ratio] 14.3 % 11.5 - 14.5 % [facility] Hematocrit (Bld) [Volume fraction] 26.6 % Low 36.0 - 46.0 % [facility] Hemoglobin (Bld) [Mass/Vol] 7.6 g/dL Low 12.0 - 16.0 g/dL [facility] Interpretation and review of laboratory results Abnormal [facility] MCH (RBC) [Entitic mass] 29.9 pg 26.0 - 34.[address] [facility] MCHC (RBC) [Mass/Vol] 28.6 g/dL Low 32.0 - 36.0 g/dL [facility] MCV (RBC) [Entitic vol] 105 fL High 80 - [address] [facility] Nucleated RBC/100 WBC (Bld) [Ratio] 0.0 % [facility] Platelets (Bld) [#/Vol] 107 10*3/uL [facility] RBC (Bld) [#/Vol] 2.54 10*6/uL [facility] WBC (Bld) [#/Vol] 4.1 10*3/uL [facility] Erythrocyte distribution width (RBC) [Ratio] 14.3 % Normal 11.5-14.5 [facility] Comment on above: Performed By: #### 2 341-6 #### BEVERLEY Poe ([id number]) [facility] ([facility]) [address] [place] [address] 81227 Hematocrit (Bld) [Volume fraction] 26.6 % Low 36.0-46.0 [facility] Comment on above: Performed By: #### 2 341-6 #### BEVERLEY Poe ([id number]) [facility] ([facility]) [address] [place] [address] 72111 Hemoglobin (Bld) [Mass/Vol] 7.6 g/dL Low 12.0-16.0 [facility] Comment on above: Performed By: #### 2 341-6 #### BEVERLEY Poe ([id number]) [facility] ([facility]) [address] [place] [address] 42526 MCH (RBC) [Entitic mass] 29.9 pg Normal 26.0-34.0 [facility] Comment on above: Performed By: #### 2 341-6 #### BEVERLEY Poe ([id number]) [facility] ([facility]) [address] [place] [address] 85556 MCHC (RBC) [Mass/Vol] 28.6 g/dL Low 32.0-36.0 [facility] Comment on above: Performed By: #### 2 341-6 #### BEVERLEY Poe ([id number]) [facility] ([facility]) [address] [place] [address] 73733 MCV (RBC) [Entitic vol] 105 fL High 80-100 [facility] Comment on above: Performed By: #### 2 341-6 #### BEVERLEY Poe ([id number]) [facility] ([facility]) [address] [place] [address] 27644 Nucleated RBC/100 WBC (Bld) [Ratio] 0.0 /100 WBCs Normal 0.0-0.0 [facility] Comment on above: Performed By: #### 2 341-6 #### BEVERLEY Poe ([id number]) [facility] ([facility]) [address] [place] [address] 22726 Platelets (Bld) [#/Vol] 107 x10*3/uL Low 150-450 [facility] Comment on above: Performed By: #### 2 341-6 #### BEVERLEY Poe ([id number]) [facility] ([facility]) [address] [place] [address] 58924 RBC (Bld) [#/Vol] 2.54 x10*6/uL Low 4.00-5.20 [facility] Comment on above: Performed By: #### 2 341-6 #### BEVERLEY Poe ([id number]) [facility]) [address] [place] [address] WBC (Bld) [#/Vol] 4.1 x10*3/uL Low 4.4-11.3 [facility] Comment on above: Performed By: #### 2 341-6 #### BEVERLEY Poe ([id number]) [facility] ([facility]) [id number] [place], [place] [id number] [facility] Heart and Coronary arter ies WO and W contrast Jack 09-26-2023 Radiology Study observation (narrative) [facility] Work Phone: [phone] ECG 12 LeadOrdered By: Monse Piedra on 09-26-2023 Atrial Rate [address] [facility] Work Phone: [phone] P Ferdinand [address] [facility] Work Phone: [phone] P Offset [address] [facility] Work Phone: [phone] P Onset [address] [facility] Work Phone: [phone] MO Interval [address] [facility] Work Phone: [phone] Q Onset [address] [facility] Work Phone: [phone] QRS Count [address] [facility] Work Phone: [phone] QRS Duration [address] [facility] Work Phone: [phone] QT Interval [address] [facility] Work Phone: [phone] QTC Calculation(Bazett) 480 [facility] Work Phone: [phone] QTC Fredericia 444 [facility] Work Phone: [phone] R Ferdinand -[address] [facility] Work Phone: [phone] T Ferdinand [address] [facility] Work Phone: [phone] T Offset [address] [facility] Work Phone: [phone] Ventricular Rate [address] [facility] Work Phone: [facility] Work Phone: ECG 12 Leadon 09-26-[address] [facility] Work Phone: Magnesiumon 09-26-2023 Magnesium [Mass/Vol] 2.17 mg/dL 1.60 - 2.40 mg/dL [facility] Magnesium [Mass/Vol] 2.17 mg/dL Normal 1.60-2.40 [facility] Comment on above: Performed By: #### 2 341-6 #### BEVERLEY Poe ([id number]) [facility] ([facility]) [address] [place] [address] Magnesium [Mass/Vol]on 09-26 Interpretation and review of laboratory results Normal [facility] No Panel Informationon 09-[address] [facility] Renal function 2000 panelon 09-26-2023 Albumin BCP dye [Mass/Vol] 2.8 g/dL Low 3.4 - 5.0 g/dL [facility] Anion gap [Moles/Vol] mmol/L Low 10 - 2 0 mmol/L [facility] Calcium [Mass/Vol] 8.6 mg/dL 8.6 - 10. 6 mg/dL [facility] Chloride [Moles/Vol] 101 mmol/L 98 - 10 7 mmol/L [facility] CO2 [Moles/Vol] 45 mmol/L Critically high 21 - 32 mmol/L [facility] Creatinine [Mass/Vol] 0.45 mg/dL Low 0.50 - 1.05 mg/dL [facility] GFR/1.73 sq M.predicted MDRD (S/P/Bld) [Vol rate/Area] - PINF [facility] Glucose [Mass/Vol] 111 mg/dL High 74 - 99 mg/dL [facility] Interpretation and review of laboratory results Abnormal [facility] Phosphate [Mass/Vol] 3.2 mg/dL 2.5 - 4 .9 mg/dL [facility] Potassium [Moles/Vol] 3.8 mmol/L 3.5 - 5.3 mmol/L [facility] Sodium [Moles/Vol] 147 mmol/L High 136 - 145 mmol/L [facility] Urea nitrogen [Mass/Vol] 16 mg/dL 6 - 23 mg/dL [facility] Albumin BCP dye [Mass/Vol] 2.8 g/dL Low 3.4-5.0 [facility] Comment on above: Performed By: #### 2 341-6 #### BEVERLEY Poe ([id number]) [facility] ([facility]) [address] [place] [address] Anion gap [Moles/Vol] mmol/L Low 10-20 [facility] Comment on above: Performed By: #### 2 341-6 #### BEVERLEY Poe ([id number]) [facility] ([facility]) [address] [place] [address] 62148 Calcium [Mass/Vol] 8.6 mg/dL Normal 8.6-10.6 [facility] Comment on above: Performed By: #### 2 341-6 #### BEVERLEY Poe ([id number]) [facility] ([facility]) [address] [place] [address] 33906 Chloride [Moles/Vol] 101 mmol/L Normal 98-107 [facility] Comment on above: Performed By: #### 2 341-6 #### BEVERLEY DODD L ([id number]) [facility] ([facility]) [address] [place] [address] 57996 CO2 [Moles/Vol] 45 mmol/L Critically high 21-32 [facility] Comment on above: Performed By: #### 2 341-6 #### BEVERLEY DODD L ([id number]) [facility] ([facility]) [id number] [place] [address] Creatinine [Mass/Vol] 0.45 mg/dL Low 0.50-1.05 [facility] Comment on above: Performed By: #### 2 341-6 #### BEVERLEY Poe ([id number]) [facility] ([facility]) [address] [place] [address] GFR/1.73 sq M.predicted MDRD (S/P/Bld) [Vol rate/Area] mL/min/{1.73_m2} Normal >60 [facility] Comment on above: Result Comment: Calc ulations of estimated GFR are performed using the 2020 CKD-EPI Study Refit equation without the race variable for the IDMS-Traceable creatinine methods. https://jasn.asnjournals.org/content//ASN.89586 08018 Performed By: #### 2 341-6 #### BEVERLEY Poe ([id number]) [facility] ([facility]) [address] [place] [address] Glucose [Mass/Vol] 111 mg/dL High 74-99 [facility] Comment on above: Performed By: #### 2 341-6 #### BEVERLEY Poe ([id number]) [facility] ([facility]) [address] [place] [address] Phosphate [Mass/Vol] 3.2 mg/dL Normal 2.5-4.9 [facility] Comment on above: Result Comment: The performance characteristics of phosphorus testing in heparinized plasma have been validated by the individual laboratory site where testing is performed. Testing on heparinized plasma is not approved by the FDA; however, such approval is not necessary. Performed By: #### 2 341-6 #### BEVERLEY Poe ([id number]) [facility] ([facility]) [address] [place] [address] Potassium [Moles/Vol] 3.8 mmol/L Normal 3.5-5.3 [facility] Comment on above: Performed By: #### 2 341-6 #### BEVERLEY Poe ([id number]) [facility] ([facility]) [address] [place] [address] Sodium [Moles/Vol] 147 mmol/L High 136-145 [facility] Comment on above: Performed By: #### 2 341-6 #### BEVERLEY Poe ([id number]) [facility] ([facility]) [address] [place] [address] 10168 Urea nitrogen [Mass/Vol] 16 mg/dL Normal 6-23 [facility] Comment on above: Performed By: #### 2 341-6 #### BEVERLEY Poe ([id number]) [facility] ([facility]) [address] [place] [address] MR Pelvis WO and W contrast Jack 09-25-2023 [facility] Work Phone: MR Pelvis WO and W contrast IVOrdered By: Clint Woods on 09-25-[address] [facility] Work Phone: CBC panel Auto (Bld)on 09-24 Erythrocyte distribution width (RBC) [Ratio] 14.5 % 11.5 - 14.5 % [facility] Hematocrit (Bld) [Volume fraction] 26.5 % Low 36.0 - 46.0 % [facility] Hemoglobin (Bld) [Mass/Vol] 7.8 g/dL Low 12.0 - 16.0 g/dL [facility] Interpretation and review of laboratory results Abnormal [facility] MCH (RBC) [Entitic mass] 29.1 pg 26.0 - 34.[address] [facility] MCHC (RBC) [Mass/Vol] 29.4 g/dL Low 32.0 - 36.0 g/dL [facility] MCV (RBC) [Entitic vol] 99 fL 80 - [address] [facility] Nucleated RBC/100 WBC (Bld) [Ratio] 0.0 % [facility] Platelets (Bld) [#/Vol] 96 10*3/uL Low [facility] RBC (Bld) [#/Vol] 2.68 10*6/uL [facility] WBC (Bld) [#/Vol] 4.7 10*3/uL [facility] Erythrocyte distribution width (RBC) [Ratio] 14.5 % Normal 11.5-14.5 [facility] Comment on above: Performed By: #### 2 341-6 #### BEVERLEY Poe ([id number]) [facility] ([facility]) [address] [place] [address]29[address] Hematocrit (Bld) [Volume fraction] 26.5 % Low 36.0-46.0 [facility] Comment on above: Performed By: #### 2 341-6 #### BEVERLEY Poe ([id number]) [facility] ([facility]) [address] [place] [address] 15633 Hemoglobin (Bld) [Mass/Vol] 7.8 g/dL Low 12.0-16.0 [facility] Comment on above: Performed By: #### 2 341-6 #### BEVERLEY Poe ([id number]) [facility] ([facility]) [address] [place] [address] 27069 MCH (RBC) [Entitic mass] 29.1 pg Normal 26.0-34.0 [facility] Comment on above: Performed By: #### 2 341-6 #### BEVERLEY Poe ([id number]) [facility] ([facility]) [address] [place] [address] 00096 MCHC (RBC) [Mass/Vol] 29.4 g/dL Low 32.0-36.0 [facility] Comment on above: Performed By: #### 2 341-6 #### BEVERLEY Poe ([id number]) [facility] ([facility]) [address] [place] [address] 63991 MCV (RBC) [Entitic vol] 99 fL Normal 80-100 [facility] Comment on above: Performed By: #### 2 341-6 #### BEVERLEY Poe ([id number]) [facility] ([facility]) [address] [place] [address] 35163 Nucleated RBC/100 WBC (Bld) [Ratio] 0.0 /100 WBCs Normal 0.0-0.0 [facility] Comment on above: Performed By: #### 2 341-6 #### BEVERLEY Poe ([id number]) [facility] ([facility]) [address] [place] [address] 92665 Platelets (Bld) [#/Vol] 96 x10*3/uL Low 150-450 [facility] Comment on above: Performed By: #### 2 341-6 #### BEVERLEY Poe ([id number]) [facility] ([facility]) [address] [place] [address] 17210 RBC (Bld) [#/Vol] 2.68 x10*6/uL Low 4.00-5.20 [facility] Comment on above: Performed By: #### 2 341-6 #### BEVERLEY Poe ([id number]) [facility] ([facility]) [address] [place] [address] 11353 WBC (Bld) [#/Vol] 4.7 x10*3/uL Normal 4.4-11.3 [facility] Comment on above: Performed By: #### 2 341-6 #### BEVERLEY Poe ([id number]) [facility] ([facility]) [address] [place] [address] 45569 Glucose Test strip manual (B ld) [Mass/Vol]on 09-24-2023 Glucose [Mass/Vol] 135 mg/dL High 74 - 99 mg/dL [facility] Interpretation and review of laboratory results Abnormal [facility] Magnesiumon 09-24-2023 Magnesium [Mass/Vol] 2.01 mg/dL 1.60 - 2.40 mg/dL [facility] Magnesium [Mass/Vol] 2.01 mg/dL Normal 1.60-2.40 [facility] Comment on above: Performed By: #### 2 341-6 #### BEVERLEY Poe ([id number]) [facility] ([facility]) [address] [place] [address] 18575 Magnesium [Mass/Vol]on 09-24 Interpretation and review of laboratory results Normal [facility] No Panel Informationon 09-[address] [facility] Renal function 2000 panelon 09-24-2023 Albumin BCP dye [Mass/Vol] 2.8 g/dL Low 3.4 - 5.0 g/dL [facility] Anion gap [Moles/Vol] 10 mmol/L 10 - 2 0 mmol/L [facility] Calcium [Mass/Vol] 8.4 mg/dL Low 8.6 - 10. 6 mg/dL [facility] Chloride [Moles/Vol] 98 mmol/L 98 - 10 7 mmol/L [facility] CO2 [Moles/Vol] 42 mmol/L Critically high 21 - 32 mmol/L [facility] Creatinine [Mass/Vol] 0.42 mg/dL Low 0.50 - 1.05 mg/dL [facility] GFR/1.73 sq M.predicted MDRD (S/P/Bld) [Vol rate/Area] - PINF [facility] Glucose [Mass/Vol] 140 mg/dL High 74 - 99 mg/dL [facility] Interpretation and review of laboratory results Abnormal [facility] Phosphate [Mass/Vol] 3.3 mg/dL 2.5 - 4 .9 mg/dL [facility] Potassium [Moles/Vol] 4.0 mmol/L 3.5 - 5.3 mmol/L [facility] Sodium [Moles/Vol] 146 mmol/L High 136 - 145 mmol/L [facility] Urea nitrogen [Mass/Vol] 10 mg/dL 6 - 23 mg/dL [facility] Albumin BCP dye [Mass/Vol] 2.8 g/dL Low 3.4-5.0 [facility] Comment on above: Performed By: #### 2 341-6 #### BEVERLEY Poe ([id number]) [facility] ([facility]) [address] [place] [address] 86592 Anion gap [Moles/Vol] 10 mmol/L Normal 10-20 [facility] Comment on above: Performed By: #### 2 341-6 #### BEVERLEY Poe ([id number]) [facility] ([facility]) [address] [place] [address] 69054 Calcium [Mass/Vol] 8.4 mg/dL Low 8.6-10.6 [facility] Comment on above: Performed By: #### 2 341-6 #### BEVERLEY Poe ([id number]) [facility] ([facility]) [address] [place] [address] Chloride [Moles/Vol] 98 mmol/L Normal 98-107 [facility] Comment on above: Performed By: #### 2 341-6 #### BEVERLEY CARSONER L ([id number]) [facility] ([facility]) [address] [place] [address] CO2 [Moles/Vol] 42 mmol/L Critically high 21-32 [facility] Comment on above: Performed By: #### 2 341-6 #### BEVERLEY DODD L ([id number]) [facility] ([facility]) [address] [place] [address] Creatinine [Mass/Vol] 0.42 mg/dL Low 0.50-1.05 [facility] Comment on above: Performed By: #### 2 341-6 #### BEVERLEY Poe ([id number]) [facility] ([facility]) [address] [place] [address] GFR/1.73 sq M.predicted MDRD (S/P/Bld) [Vol rate/Area] mL/min/{1.73_m2} Normal >60 [facility] Comment on above: Result Comment: Calc ulations of estimated GFR are performed using the 2020 CKD-EPI Study Refit equation without the race variable for the IDMS-Traceable creatinine methods. https://jasn.asnjournals.org/content//ASN.47007 61532 Performed By: #### 2 341-6 #### BEVERLEY DODD L ([id number]) [facility] ([facility]) [address] [place] [address] Glucose [Mass/Vol] 140 mg/dL High 74-99 [facility] Comment on above: Performed By: #### 2 341-6 #### BEVERLEY DODD L ([id number]) [facility] ([facility]) [address] [place] [address] Phosphate [Mass/Vol] 3.3 mg/dL Normal 2.5-4.9 [facility] Comment on above: Result Comment: The performance characteristics of phosphorus testing in heparinized plasma have been validated by the individual laboratory site where testing is performed. Testing on heparinized plasma is not approved by the FDA; however, such approval is not necessary. Performed By: #### 2 341-6 #### BEVERLEY Poe ([id number]) [facility] ([facility]) [address] [place] [address] Potassium [Moles/Vol] 4.0 mmol/L Normal 3.5-5.3 [facility] Comment on above: Performed By: #### 2 341-6 #### BEVERLEY Poe ([id number]) [facility] ([facility]) [address] [place] [address] 33982 Sodium [Moles/Vol] 146 mmol/L High 136-145 [facility] Comment on above: Performed By: #### 2 341-6 #### BEVERLEY Poe ([id number]) [facility] ([facility]) [address] [place] [address] 64113 Urea nitrogen [Mass/Vol] 10 mg/dL Normal 6-23 [facility] Comment on above: Performed By: #### 2 341-6 #### BEVERLEY Poe ([id number]) [facility] ([facility]) [address] [place] [address] 36029 CBC panel Auto (Bld)on 09-23 Erythrocyte distribution width (RBC) [Ratio] 14.4 % 11.5 - 14.5 % [facility] Hematocrit (Bld) [Volume fraction] 26.9 % Low 36.0 - 46.0 % [facility] Hemoglobin (Bld) [Mass/Vol] 7.7 g/dL Low 12.0 - 16.0 g/dL [facility] Interpretation and review of laboratory results Abnormal [facility] MCH (RBC) [Entitic mass] 29.8 pg 26.0 - 34.[address] [facility] MCHC (RBC) [Mass/Vol] 28.6 g/dL Low 32.0 - 36.0 g/dL [facility] MCV (RBC) [Entitic vol] 104 fL High 80 - [address] [facility] Nucleated RBC/100 WBC (Bld) [Ratio] 0.0 % [facility] Platelets (Bld) [#/Vol] 93 10*3/uL Low [facility] RBC (Bld) [#/Vol] 2.58 10*6/uL [facility] WBC (Bld) [#/Vol] 4.9 10*3/uL [facility] Erythrocyte distribution width (RBC) [Ratio] 14.4 % Normal 11.5-14.5 [facility] Comment on above: Performed By: #### 2 341-6 #### BEVERLEY Poe ([id number]) [facility] ([facility]) [address] [place] [address] 94931 Hematocrit (Bld) [Volume fraction] 26.9 % Low 36.0-46.0 [facility] Comment on above: Performed By: #### 2 341-6 #### BEVERLEY Poe ([id number]) [facility] ([facility]) [address] [place] [address] 44992 Hemoglobin (Bld) [Mass/Vol] 7.7 g/dL Low 12.0-16.0 [facility] Comment on above: Performed By: #### 2 341-6 #### BEVERLEY Poe ([id number]) [facility] ([facility]) [address] [place] [address] 24428 MCH (RBC) [Entitic mass] 29.8 pg Normal 26.0-34.0 [facility] Comment on above: Performed By: #### 2 341-6 #### BEVERLEY Poe ([id number]) [facility] ([facility]) [address] [place] [address] 21669 MCHC (RBC) [Mass/Vol] 28.6 g/dL Low 32.0-36.0 [facility] Comment on above: Performed By: #### 2 341-6 #### BEVERLEY Poe ([id number]) [facility] ([facility]) [address] [place] [address] MCV (RBC) [Entitic vol] 104 fL High 80-100 [facility] Comment on above: Performed By: #### 2 341-6 #### BEVERLEY Poe ([id number]) [facility] ([facility]) [address] [place] [address] 75865 Nucleated RBC/100 WBC (Bld) [Ratio] 0.0 /100 WBCs Normal 0.0-0.0 [facility] Comment on above: Performed By: #### 2 341-6 #### BEVERLEY Poe ([id number]) [facility] ([facility]) [address] [place] [address] 21249 Platelets (Bld) [#/Vol] 93 x10*3/uL Low 150-450 [facility] Comment on above: Performed By: #### 2 341-6 #### BEVERLEY Poe ([id number]) [facility] ([facility]) [address] [place] [address] 48117 RBC (Bld) [#/Vol] 2.58 x10*6/uL Low 4.00-5.20 [facility] Comment on above: Performed By: #### 2 341-6 #### BEVERLEY Poe ([id number]) [facility] ([facility]) [address] [place] [address] 92753 WBC (Bld) [#/Vol] 4.9 x10*3/uL Normal 4.4-11.3 [facility] Comment on above: Performed By: #### 2 341-6 #### BEVERLEY Poe ([id number]) [facility] ([facility]) [address] [place] [address] ANGIO CORONARY ART WITH H EARTFLOW IF SCORE >30%on 09-23-2023 CT ANGIO CORONARY ART WITH HEARTFLOW IF SCORE >30% Interpreted By: Yair Pham and Hima Mccarty STUDY: CT ANGIO CORONARY ART WITH HEARTFLOW IF SCORE >30%; 09/26/2023 1:38 pm INDICATION: Signs/Symptoms:Reduced EF; Pre Op optimization. COMPARISON: None. ACCESSION NUMBER(S): [id number] ORDERING CLINICIAN: KANG JULIAN TECHNIQUE: Using multi-detector [...] Yair Pham 09/28/2023 11:26 AM Dictation workstation: [id number] [facility] Carcinoembryonic Agon 2022 Carcinoembryonic Ag [Mass/Vol] ng/mL [facility] Comment on above: Order Comment: REF V ALUES NONSMOKERS 0-2.5 SMOKERS 0-5.0CEA testing is performed by chemiluminescent immunoassay using the Siemens Pumodo. Values obtained with different analytic methods cannot [...] By: #### 2 341-6 #### BEVERLEY Poe ([id number]) [facility] ([facility]) [address] [place] [address] 75017 Carcinoembryonic Ag [Mass/Vo l]on 09-23-2023 [facility] Carcinoembryonic Antigenon 1 11-23-2022 Carcinoembryonic Ag [Mass/Vol] ug/L ug/L [facility] Glucose Test strip manual (B ld) [Mass/Vol]on 09-23-2023 Glucose [Mass/Vol] 146 mg/dL High 74 - 99 mg/dL [facility] Interpretation and review of laboratory results Abnormal [facility] Glucose [Mass/Vol] 146 mg/dL High 74-99 [facility] Comment on above: Performed By: #### 2 341-6 #### BEVERLEY Poe ([id number]) [facility] ([facility]) [address] [place] [address] 31512 Glucose [Mass/Vol] 161 mg/dL High 74 - 99 mg/dL [facility] Interpretation and review of laboratory results Abnormal [facility] Glucose [Mass/Vol] 161 mg/dL High 74-99 [facility] Comment on above: Performed By: #### 2 341-6 #### BEVERLEY Poe ([id number]) [facility] ([facility]) [address] [place] [address] 21585 Magnesiumon 09-23-2023 Magnesium [Mass/Vol] 2.04 mg/dL 1.60 - 2.40 mg/dL [facility] Magnesium [Mass/Vol] 2.04 mg/dL Normal 1.60-2.40 [facility] Comment on above: Performed By: #### 2 341-6 #### BEVERLEY Poe ([id number]) [facility] ([facility]) [address] [place], [place] [address] Magnesium [Mass/Vol]on 09-23 Interpretation and review of laboratory results Normal [facility] No Panel Informationon 09-[address] [facility] Renal function 2000 panelon 09-23-2023 Albumin BCP dye [Mass/Vol] 2.9 g/dL Low 3.4 - 5.0 g/dL [facility] Anion gap [Moles/Vol] 8 mmol/L Low 10 - 2 0 mmol/L [facility] Calcium [Mass/Vol] 8.7 mg/dL 8.6 - 10. 6 mg/dL [facility] Chloride [Moles/Vol] 100 mmol/L 98 - 10 7 mmol/L [facility] CO2 [Moles/Vol] 40 mmol/L Critically high 21 - 32 mmol/L [facility] Creatinine [Mass/Vol] 0.42 mg/dL Low 0.50 - 1.05 mg/dL [facility] GFR/1.73 sq M.predicted MDRD (S/P/Bld) [Vol rate/Area] - PINF [facility] Glucose [Mass/Vol] 123 mg/dL High 74 - 99 mg/dL [facility] Interpretation and review of laboratory results Abnormal [facility] Phosphate [Mass/Vol] 3.0 mg/dL 2.5 - 4 .9 mg/dL [facility] Potassium [Moles/Vol] 4.0 mmol/L 3.5 - 5.3 mmol/L [facility] Sodium [Moles/Vol] 144 mmol/L 136 - 145 mmol/L [facility] Urea nitrogen [Mass/Vol] 13 mg/dL 6 - 23 mg/dL [facility] Albumin BCP dye [Mass/Vol] 2.9 g/dL Low 3.4-5.0 [facility] Comment on above: Performed By: #### 2 341-6 #### BEVERLEY Poe ([id number]) [facility] ([facility]) [address] [place] [address] Anion gap [Moles/Vol] 8 mmol/L Low 10-20 [facility] Comment on above: Performed By: #### 2 341-6 #### BEVERLEY DODD L ([id number]) [facility] ([facility]) [address] [place] [address] Calcium [Mass/Vol] 8.7 mg/dL Normal 8.6-10.6 [facility] Comment on above: Performed By: #### 2 341-6 #### BEVERLEY DODD L ([id number]) [facility] ([facility]) [address] [place] [address] 51138 Chloride [Moles/Vol] 100 mmol/L Normal 98-107 [facility] Comment on above: Performed By: #### 2 341-6 #### BEVERLEY DODD L ([id number]) [facility] ([facility]) [address] [place] [address] 15496 CO2 [Moles/Vol] 40 mmol/L Critically high 21-32 [facility] Comment on above: Performed By: #### 2 341-6 #### BEVERLEY DODD L ([id number]) [facility] ([facility]) [address] [place] [address] Creatinine [Mass/Vol] 0.42 mg/dL Low 0.50-1.05 [facility] Comment on above: Performed By: #### 2 341-6 #### BEVERLEY DODD L ([id number]) [facility] ([facility]) [address] [place] [address] GFR/1.73 sq M.predicted MDRD (S/P/Bld) [Vol rate/Area] mL/min/{1.73_m2} Normal >60 [facility] Comment on above: Result Comment: Calc ulations of estimated GFR are performed using the 2020 CKD-EPI Study Refit equation without the race variable for the IDMS-Traceable creatinine methods. https://jasn.asnjournals.org/content//ASN.02139 74865 Performed By: #### 2 341-6 #### BEVERLEY Poe ([id number]) [facility] ([facility]) [address] [place] [address] Glucose [Mass/Vol] 123 mg/dL High 74-99 [facility] Comment on above: Performed By: #### 2 341-6 #### BEVERLEY Poe (77509) [facility] ([facility]) [address] [place] [address] Phosphate [Mass/Vol] 3.0 mg/dL Normal 2.5-4.9 [facility] Comment on above: Result Comment: The performance characteristics of phosphorus testing in heparinized plasma have been validated by the individual laboratory site where testing is performed. Testing on heparinized plasma is not approved by the FDA; however, such approval is not necessary. Performed By: #### 2 341-6 #### BEVERLEY Poe ([id number]) [facility] ([facility]) [address] [place] [address] Potassium [Moles/Vol] 4.0 mmol/L Normal 3.5-5.3 [facility] Comment on above: Performed By: #### 2 341-6 #### BEVERLEY Poe ([id number]) [facility] ([facility]) [address] [place] [address] 19236 Sodium [Moles/Vol] 144 mmol/L Normal 136-145 [facility] Comment on above: Performed By: #### 2 341-6 #### BEVERLEY Poe ([id number]) [facility] ([facility]) [address] [place] [address] Urea nitrogen [Mass/Vol] 13 mg/dL Normal 6-23 [facility] Comment on above: Performed By: #### 2 341-6 #### BEVERLEY Poe ([id number]) [facility] ([facility]) [address] [place] [address] Bacteria identified Cx Nom ( U)Ordered By: Rakesh Srivastava on 09-22-2023 Interpretation and review of laboratory results Abnormal [facility] CBC panel Auto (Bld)on 09-22 Erythrocyte distribution width (RBC) [Ratio] 14.6 % High 11.5 - 14.5 % [facility] Hematocrit (Bld) [Volume fraction] 27.9 % Low 36.0 - 46.0 % [facility] Hemoglobin (Bld) [Mass/Vol] 8.0 g/dL Low 12.0 - 16.0 g/dL [facility] Interpretation and review of laboratory results Abnormal [facility] MCH (RBC) [Entitic mass] 29.9 pg 26.0 - 34.[address] [facility] MCHC (RBC) [Mass/Vol] 28.7 g/dL Low 32.0 - 36.0 g/dL [facility] MCV (RBC) [Entitic vol] 104 fL High 80 - [address] [facility] Nucleated RBC/100 WBC (Bld) [Ratio] 0.0 % [facility] Platelets (Bld) [#/Vol] 99 10*3/uL Low [facility] RBC (Bld) [#/Vol] 2.68 10*6/uL [facility] WBC (Bld) [#/Vol] 4.7 10*3/uL [facility] Erythrocyte distribution width (RBC) [Ratio] 14.6 % High 11.5-14.5 [facility] Comment on above: Performed By: #### 3 4532-2 #### BEVERLEY Poe ([id number]) [facility] ([facility]) [address] [place] [address] Hematocrit (Bld) [Volume fraction] 27.9 % Low 36.0-46.0 [facility] Comment on above: Performed By: #### 3 4532-2 #### BEVERLEY Poe ([id number]) [facility] ([facility]) [address] [place] [address] Hemoglobin (Bld) [Mass/Vol] 8.0 g/dL Low 12.0-16.0 [facility] Comment on above: Performed By: #### 3 4531-2 #### BEVERLEY Poe ([id number]) [facility] ([facility]) [address] [place] [address] MCH (RBC) [Entitic mass] 29.9 pg Normal 26.0-34.0 [facility] Comment on above: Performed By: #### 3 4531-2 #### BEVERLEY Poe ([id number]) [facility] ([facility]) [address] [place] [address] MCHC (RBC) [Mass/Vol] 28.7 g/dL Low 32.0-36.0 [facility] Comment on above: Performed By: #### 3 4531-2 #### BEVERLEY Poe ([id number]) [facility] ([facility]) [address] [place] [address] MCV (RBC) [Entitic vol] 104 fL High 80-100 [facility] Comment on above: Performed By: #### 3 4531-2 #### BEVERLEY Poe ([id number]) [facility] ([facility]) [address] [place] [address] Nucleated RBC/100 WBC (Bld) [Ratio] 0.0 /100 WBCs Normal 0.0-0.0 [facility] Comment on above: Performed By: #### 3 4531-2 #### BEVERLEY Poe ([id number]) [facility] ([facility]) [address] [place] [address] Platelets (Bld) [#/Vol] 99 x10*3/uL Low 150-450 [facility] Comment on above: Performed By: #### 3 4531-2 #### BEVERLEY Poe ([id number]) [facility] ([facility]) [address] [place] [address] RBC (Bld) [#/Vol] 2.68 x10*6/uL Low 4.00-5.20 [facility] Comment on above: Performed By: #### 3 4532-2 #### BEVERLEY Poe ([id number]) [facility] ([facility]) [address] [place] [address] WBC (Bld) [#/Vol] 4.7 x10*3/uL Normal 4.4-11.3 [facility] Comment on above: Performed By: #### 3 4532-2 #### BEVERLEY Poe ([id number]) [facility] ([facility]) [address] [place] [address] Glucose Test strip manual (B ld) [Mass/Vol]on 09-22-2023 Glucose [Mass/Vol] 160 mg/dL High 74 - 99 mg/dL [facility] Interpretation and review of laboratory results Abnormal [facility] Glucose [Mass/Vol] 160 mg/dL High 74-99 [facility] Comment on above: Performed By: #### 2 341-6 #### BEVERLEY Poe ([id number]) [facility] ([facility]) [address] [place] [address] Glucose [Mass/Vol] 174 mg/dL High 74 - 99 mg/dL [facility] Interpretation and review of laboratory results Abnormal [facility] Glucose [Mass/Vol] 174 mg/dL High 74-99 [facility] Comment on above: Performed By: #### 2 341-6 #### BEVERLEY Poe ([id number]) [facility] ([facility]) [address] [place] [address] Glucose [Mass/Vol] 135 mg/dL High 74-99 [facility] Comment on above: Performed By: #### 2 341-6 #### BEVERLEY Poe ([id number]) [facility] ([facility]) [address] [place] [address] Glucose [Mass/Vol] 148 mg/dL High 74 - 99 mg/dL [facility] Interpretation and review of laboratory results Abnormal [facility] Glucose [Mass/Vol] 148 mg/dL High 74-99 [facility] Comment on above: Performed By: #### 3 4532-2 #### BEVERLEY Poe ([id number]) [facility] ([facility]) [address] [place] [address] Magnesiumon 09-22-2023 Magnesium [Mass/Vol] 2.07 mg/dL 1.60 - 2.40 mg/dL [facility] Magnesium [Mass/Vol] 2.07 mg/dL Normal 1.60-2.40 [facility] Comment on above: Performed By: #### 3 4532-2 #### BEVERLEY Poe ([id number]) [facility] ([facility]) [address] [place] [address] Magnesium [Mass/Vol]on 09-22 Interpretation and review of laboratory results Normal [facility] No Panel Informationon 09-[address] [facility] Renal function 2000 panelon 09-22-2023 Albumin BCP dye [Mass/Vol] 2.7 g/dL Low 3.4 - 5.0 g/dL [facility] Anion gap [Moles/Vol] 11 mmol/L 10 - 2 0 mmol/L [facility] Calcium [Mass/Vol] 8.3 mg/dL Low 8.6 - 10. 6 mg/dL [facility] Chloride [Moles/Vol] 101 mmol/L 98 - 10 7 mmol/L [facility] CO2 [Moles/Vol] 38 mmol/L High 21 - 32 mmol/L [facility] Creatinine [Mass/Vol] 0.42 mg/dL Low 0.50 - 1.05 mg/dL [facility] GFR/1.73 sq M.predicted MDRD (S/P/Bld) [Vol rate/Area] - PINF [facility] Glucose [Mass/Vol] 134 mg/dL High 74 - 99 mg/dL [facility] Interpretation and review of laboratory results Abnormal [facility] Phosphate [Mass/Vol] 3.4 mg/dL 2.5 - 4 .9 mg/dL [facility] Potassium [Moles/Vol] 4.0 mmol/L 3.5 - 5.3 mmol/L [facility] Sodium [Moles/Vol] 146 mmol/L High 136 - 145 mmol/L [facility] Urea nitrogen [Mass/Vol] 15 mg/dL 6 - 23 mg/dL [facility] Albumin BCP dye [Mass/Vol] 2.7 g/dL Low 3.4-5.0 [facility] Comment on above: Performed By: #### 3 4531-2 #### BEVERLEY Poe ([id number]) [facility] ([facility]) [address] [place] [address] Anion gap [Moles/Vol] 11 mmol/L Normal 10-20 [facility] Comment on above: Performed By: #### 3 4531-2 #### BEVERLEY Poe ([id number]) [facility] ([facility]) [address] [place] [address] Calcium [Mass/Vol] 8.3 mg/dL Low 8.6-10.6 [facility] Comment on above: Performed By: #### 3 4531-2 #### BEVERLEY Poe ([id number]) [facility] ([facility]) [address] [place] [address] Chloride [Moles/Vol] 101 mmol/L Normal 98-107 [facility] Comment on above: Performed By: #### 3 4531-2 #### BEVERLEY Poe ([id number]) [facility] ([facility]) [address] [place] [address] CO2 [Moles/Vol] 38 mmol/L High 21-32 [facility] Comment on above: Performed By: #### 3 4531-2 #### BEVERLEY Poe ([id number]) [facility] ([facility]) [address] [place] [address] Creatinine [Mass/Vol] 0.42 mg/dL Low 0.50-1.05 [facility] Comment on above: Performed By: #### 3 4531-2 #### BEVERLEY Poe ([id number]) [facility] ([facility]) [address] [place] [address] GFR/1.73 sq M.predicted MDRD (S/P/Bld) [Vol rate/Area] mL/min/{1.73_m2} Normal >60 [facility] Comment on above: Result Comment: Calc ulations of estimated GFR are performed using the 2020 CKD-EPI Study Refit equation without the race variable for the IDMS-Traceable creatinine methods. https://jasn.asnjournals.org/content/early//ASN.26589 64573 Performed By: #### 3 4532-2 #### BEVERLEY Poe ([id number]) [facility] ([facility]) [address] [place] [address] Glucose [Mass/Vol] 134 mg/dL High 74-99 [facility] Comment on above: Performed By: #### 3 4532-2 #### BEVERLEY Poe ([id number]) [facility] ([facility]) [address] [place] [address] Phosphate [Mass/Vol] 3.4 mg/dL Normal 2.5-4.9 [facility] Comment on above: Result Comment: The performance characteristics of phosphorus testing in heparinized plasma have been validated by the individual laboratory site where testing is performed. Testing on heparinized plasma is not approved by the FDA; however, such approval is not necessary. Performed By: #### 3 4532-2 #### BEVERLEY Poe ([id number]) [facility] ([facility]) [address] [place] [address] Potassium [Moles/Vol] 4.0 mmol/L Normal 3.5-5.3 [facility] Comment on above: Performed By: #### 3 4532-2 #### BEVERLEY Poe ([id number]) [facility] ([facility]) [address] [place] [address] Sodium [Moles/Vol] 146 mmol/L High 136-145 [facility] Comment on above: Performed By: #### 3 4532-2 #### BEVERLEY Poe ([id number]) [facility] ([facility]) [address] [place] [address] Urea nitrogen [Mass/Vol] 15 mg/dL Normal 6-23 [facility] Comment on above: Performed By: #### 3 4532-2 #### BEVERLEY Poe ([id number]) [facility] ([facility]) [address] [place] [address] Urine cultureOrdered By: Kel Srivastava on 09-22-2023 Bacteria identified Cx Nom (U) >100,000 Enterococcus faecium Abnormal [facility] CBC panel Auto (Bld)on 09-21 Erythrocyte distribution width (RBC) [Ratio] 14.4 % 11.5 - 14.5 % [facility] Hematocrit (Bld) [Volume fraction] 25.6 % Low 36.0 - 46.0 % [facility] Hemoglobin (Bld) [Mass/Vol] 8.0 g/dL Low 12.0 - 16.0 g/dL [facility] Interpretation and review of laboratory results Abnormal [facility] MCH (RBC) [Entitic mass] 30.5 pg 26.0 - 34.[address] [facility] MCHC (RBC) [Mass/Vol] 31.3 g/dL Low 32.0 - 36.0 g/dL [facility] MCV (RBC) [Entitic vol] 98 fL 80 - [address] [facility] Nucleated RBC/100 WBC (Bld) [Ratio] 0.0 % [facility] Platelets (Bld) [#/Vol] 88 10*3/uL Low [facility] RBC (Bld) [#/Vol] 2.62 10*6/uL [facility] WBC (Bld) [#/Vol] 5.0 10*3/uL [facility] Erythrocyte distribution width (RBC) [Ratio] 14.4 % Normal 11.5-14.5 [facility] Comment on above: Performed By: #### 2 341-6 #### BEVERLEY Poe ([id number]) [facility] ([facility]) [address] [place] [address] Hematocrit (Bld) [Volume fraction] 25.6 % Low 36.0-46.0 [facility] Comment on above: Performed By: #### 2 341-6 #### BEVERLEY Poe ([id number]) [facility] ([facility]) [address] [place] [address] Hemoglobin (Bld) [Mass/Vol] 8.0 g/dL Low 12.0-16.0 [facility] Comment on above: Performed By: #### 2 341-6 #### BEVERLEY Poe ([id number]) [facility] ([facility]) [address] [place] [address] MCH (RBC) [Entitic mass] 30.5 pg Normal 26.0-34.0 [facility] Comment on above: Performed By: #### 2 341-6 #### BEVERLEY Poe ([id number]) [facility] ([facility]) [address] [place] [address] MCHC (RBC) [Mass/Vol] 31.3 g/dL Low 32.0-36.0 [facility] Comment on above: Performed By: #### 2 341-6 #### BEEVRLEY Poe ([id number]) [facility] ([facility]) [address] [place] [address] MCV (RBC) [Entitic vol] 98 fL Normal 80-100 [facility] Comment on above: Performed By: #### 2 341-6 #### BEVERLEY Poe ([id number]) [facility] ([facility]) [address] [place] [address] Nucleated RBC/100 WBC (Bld) [Ratio] 0.0 /100 WBCs Normal 0.0-0.0 [facility] Comment on above: Performed By: #### 2 341-6 #### BEVERLEY Poe ([id number]) [facility] ([facility]) [address] [place] [address] Platelets (Bld) [#/Vol] 88 x10*3/uL Low 150-450 [facility] Comment on above: Performed By: #### 2 341-6 #### BEVERLEY Poe ([id number]) [facility] ([facility]) [address] [place] [address] RBC (Bld) [#/Vol] 2.62 x10*6/uL Low 4.00-5.20 [facility] Comment on above: Performed By: #### 2 341-6 #### BEVERLEY Poe ([id number]) [facility] ([facility]) [address] [place] [address] WBC (Bld) [#/Vol] 5.0 x10*3/uL Normal 4.4-11.3 [facility] Comment on above: Performed By: #### 2 341-6 #### BEVERLEY Poe ([id number]) [facility] ([facility]) [address] [place] [address] Cancer Ag 125 Qnon 3 Interpretation and review of laboratory results Normal [facility] Cancer Antigen 125on 023 Cancer Ag 125 Qn 22.0 [arb'U]/mL 0.0 - 30 .2 U/mL [facility] Glucose Test strip manual (B ld) [Mass/Vol]on 09-21-2023 Glucose [Mass/Vol] 189 mg/dL High 74 - 99 mg/dL [facility] Interpretation and review of laboratory results Abnormal [facility] Glucose [Mass/Vol] 189 mg/dL High 74-99 [facility] Comment on above: Performed By: #### 3 4532-2 #### BEVERLEY Poe ([id number]) [facility] [address] [place] [address] Glucose [Mass/Vol] 120 mg/dL High 74 - 99 mg/dL [facility] Interpretation and review of laboratory results Abnormal [facility] Glucose [Mass/Vol] 120 mg/dL High 74-99 [facility] Comment on above: Performed By: #### 3 4532-2 #### BEVERLEY Poe ([id number]) [facility] ([facility]) [address] [place] [address] Glucose [Mass/Vol] 162 mg/dL High 74 - 99 mg/dL [facility] Interpretation and review of laboratory results Abnormal [facility] Glucose [Mass/Vol] 162 mg/dL High 74-99 [facility] Comment on above: Performed By: #### 3 4532-2 #### BEVERLEY Poe ([id number]) [facility] ([facility]) [address] [place] [address] Glucose [Mass/Vol] 134 mg/dL High 74 - 99 mg/dL [facility] Interpretation and review of laboratory results Abnormal [facility] Glucose [Mass/Vol] 134 mg/dL High 74-99 [facility] Comment on above: Performed By: #### 2 341-6 #### BEVERLEY Poe ([id number]) [facility] ([facility]) [address] [place] [address] Glucose [Mass/Vol] 136 mg/dL High 74 - 99 mg/dL [facility] Interpretation and review of laboratory results Abnormal [facility] Glucose [Mass/Vol] 136 mg/dL High 74-99 [facility] Comment on above: Performed By: #### 2 341-6 #### BEVERLEY Poe ([id number]) [facility] ([facility]) [address] [place] [address] Glucose [Mass/Vol] 123 mg/dL High 74 - 99 mg/dL [facility] Interpretation and review of laboratory results Abnormal [facility] Glucose [Mass/Vol] 123 mg/dL High 74-99 [facility] Comment on above: Performed By: #### 2 341-6 #### BEVERLEY Poe ([id number]) [facility] ([facility]) [address] [place] [id number] MR PELVIS W AND WO IV TI [...] colovesical colovaginal fistula. COMPARISON: None ACCESSION NUMBER(S): [id number] ORDERING CLINICIAN: KANG JULIAN TECHNIQUE: Multiplanar MRI [...] Cristina MD. This study was interpreted at [place], [place]. MACRO: None Signed by: Clint Woods 09/25/2023 3:47 PM Dictation workstation: [id number] Normal [facility] MR Pelvis WO and W contrast Jack 09-21-2023 Radiology Study observation (narrative) [facility] Work Phone: Magnesiumon 09-21-2023 Magnesium [Mass/Vol] 2.05 mg/dL 1.60 - 2.40 mg/dL [facility] Magnesium [Mass/Vol] 2.05 mg/dL Normal 1.60-2.40 [facility] Comment on above: Performed By: #### 2 341-6 #### BEVERLEY Poe ([id number]) [facility] ([facility]) [address] [place] [address] Magnesium [Mass/Vol]on 09-21 Interpretation and review of laboratory results Normal [facility] No Panel Informationon 09-[address] [facility] Renal function 2000 panelon 09-21-2023 Albumin BCP dye [Mass/Vol] 2.7 g/dL Low 3.4 - 5.0 g/dL [facility] Anion gap [Moles/Vol] 8 mmol/L Low 10 - 2 0 mmol/L [facility] Calcium [Mass/Vol] 8.3 mg/dL Low 8.6 - 10. 6 mg/dL [facility] Chloride [Moles/Vol] 101 mmol/L 98 - 10 7 mmol/L [facility] CO2 [Moles/Vol] 41 mmol/L Critically high 21 - 32 mmol/L [facility] Creatinine [Mass/Vol] 0.45 mg/dL Low 0.50 - 1.05 mg/dL [facility] GFR/1.73 sq M.predicted MDRD (S/P/Bld) [Vol rate/Area] - PINF [facility] Glucose [Mass/Vol] 140 mg/dL High 74 - 99 mg/dL [facility] Interpretation and review of laboratory results Abnormal [facility] Phosphate [Mass/Vol] 3.4 mg/dL 2.5 - 4 .9 mg/dL [facility] Potassium [Moles/Vol] 3.8 mmol/L 3.5 - 5.3 mmol/L [facility] Sodium [Moles/Vol] 146 mmol/L High 136 - 145 mmol/L [facility] Urea nitrogen [Mass/Vol] 12 mg/dL 6 - 23 mg/dL [facility] Albumin BCP dye [Mass/Vol] 2.7 g/dL Low 3.4-5.0 [facility] Comment on above: Performed By: #### 3 4532-2 #### BEVERLEY Poe ([id number]) [facility] ([facility]) [address] [place] [address] Anion gap [Moles/Vol] 8 mmol/L Low 10-20 [facility] Comment on above: Performed By: #### 3 4532-2 #### BEVERLEY Poe ([id number]) [facility] ([facility]) [address] [place] [address] Calcium [Mass/Vol] 8.3 mg/dL Low 8.6-10.6 [facility] Comment on above: Performed By: #### 3 4532-2 #### BEVERLEY Poe ([id number]) [facility] ([facility]) [address] [place] [address] Chloride [Moles/Vol] 101 mmol/L Normal 98-107 [facility] Comment on above: Performed By: #### 3 4532-2 #### BEVERLEY Poe ([id number]) [facility] ([facility]) [address] [place] [address] CO2 [Moles/Vol] 41 mmol/L Critically high 21-32 [facility] Comment on above: Performed By: #### 3 4532-2 #### BEVERLEY Poe ([id number]) [facility] ([facility]) [address] [place] [address] Creatinine [Mass/Vol] 0.45 mg/dL Low 0.50-1.05 [facility] Comment on above: Performed By: #### 3 4532-2 #### BEVERLEY Poe ([id number]) [facility] ([facility]) [address] [place] [address] GFR/1.73 sq M.predicted MDRD (S/P/Bld) [Vol rate/Area] mL/min/{1.73_m2} Normal >60 [facility] Comment on above: Result Comment: Calc ulations of estimated GFR are performed using the 2020 CKD-EPI Study Refit equation without the race variable for the IDMS-Traceable creatinine methods. https://jasn.asnjournals.org/content//ASN.74170 63896 Performed By: #### 3 4532-2 #### BEVERLEY Poe ([id number]) [facility] ([facility]) [address] [place] [address] Glucose [Mass/Vol] 140 mg/dL High 74-99 [facility] Comment on above: Performed By: #### 3 4532-2 #### BEVERLEY Poe ([id number]) [facility] ([facility]) [address] [place] [address] Phosphate [Mass/Vol] 3.4 mg/dL Normal 2.5-4.9 [facility] Comment on above: Result Comment: The performance characteristics of phosphorus testing in heparinized plasma have been validated by the individual laboratory site where testing is performed. Testing on heparinized plasma is not approved by the FDA; however, such approval is not necessary. Performed By: #### 3 4532-2 #### BEVERLEY Poe ([id number]) [facility] ([facility]) [address] [place] [address] Potassium [Moles/Vol] 3.8 mmol/L Normal 3.5-5.3 [facility] Comment on above: Performed By: #### 3 4532-2 #### BEVERLEY Poe ([id number]) [facility] ([facility]) [address] [place] [address] Sodium [Moles/Vol] 146 mmol/L High 136-145 [facility] Comment on above: Performed By: #### 3 4532-2 #### BEVERLEY Poe ([id number]) [facility] ([facility]) [address] [place] [address] Urea nitrogen [Mass/Vol] 12 mg/dL Normal 6-23 [facility] Comment on above: Performed By: #### 3 4532-2 #### BEVERLEY Poe ([id number]) [facility] ([facility]) [address] [place] [address] Bacteria identifiedon 2022 Bacteria identified Cx Nom (U) Test: Urine culture Specimen Source: Indwelling (Stephens) Catheter Specimen Type: Urine Specimen Date: 09/20/2023 3:34 PM Result Date: 09/22/2023 11:36 AM Result Status: Final result Abnormal: Yes Resulting Lab: [facility] [id number] [place] [address] CULTURE >100,000 Enterococcus faecium (Abnormal) Vancomycin Resistant Enterococcus (VRE) SUSCEPTIBILITY Enterococcus faecium METHOD MICROSCAN ---- ------- AMPICILLIN -- Resistant CIPROFLOXACIN -- Resistant DAPTOMYCIN -- Susceptible-dose dependent LEVOFLOXACIN -- Resistant LINEZOLID -- Susceptible NITROFURANTOIN -- Susceptible PENICILLIN -- Resistant TRIMETHOPRIM/SULFAMETHOXA ZOLE -- Resistant VANCOMYCIN -- Resistant Abnormal [facility] Comment on above: Performed By: #### 3 4532-2 #### BEVERLEY Poe ([id number]) [facility] ([facility] [address] [place] [address] CBC panel Auto (Bld)on 09-20 Erythrocyte distribution width (RBC) [Ratio] 14.5 % 11.5 - 14.5 % [facility] Hematocrit (Bld) [Volume fraction] 27.7 % Low 36.0 - 46.0 % [facility] Hemoglobin (Bld) [Mass/Vol] 8.3 g/dL Low 12.0 - 16.0 g/dL [facility] Interpretation and review of laboratory results Abnormal [facility] MCH (RBC) [Entitic mass] 30.6 pg 26.0 - 34.[address] [facility] MCHC (RBC) [Mass/Vol] 30.0 g/dL Low 32.0 - 36.0 g/dL [facility] MCV (RBC) [Entitic vol] 102 fL High 80 - [address] [facility] Nucleated RBC/100 WBC (Bld) [Ratio] 0.0 % [facility] Platelets (Bld) [#/Vol] 92 10*3/uL Low [facility] RBC (Bld) [#/Vol] 2.71 10*6/uL Low [facility] WBC (Bld) [#/Vol] 4.3 10*3/uL [facility] Erythrocyte distribution width (RBC) [Ratio] 14.5 % Normal 11.5-14.5 [facility] Comment on above: Performed By: #### 6 00-7 #### BEVERLEY Poe ([id number]) [facility] ([facility]) [address] [place] [address] 47957 Hematocrit (Bld) [Volume fraction] 27.7 % Low 36.0-46.0 [facility] Comment on above: Performed By: #### 6 -7 #### BEVERLEY Poe ([id number]) [facility] ([facility]) [address] [place] [address] 44787 Hemoglobin (Bld) [Mass/Vol] 8.3 g/dL Low 12.0-16.0 [facility] Comment on above: Performed By: #### 6 -7 #### BEVERLEY Poe ([id number]) [facility] ([facility]) [address] [place] [address] 16448 MCH (RBC) [Entitic mass] 30.6 pg Normal 26.0-34.0 [facility] Comment on above: Performed By: #### 6 -7 #### BEVERLEY Poe ([id number]) [facility] ([facility]) [address] [place] [address] 65384 MCHC (RBC) [Mass/Vol] 30.0 g/dL Low 32.0-36.0 [facility] Comment on above: Performed By: #### 6 00-7 #### BEVERLEY Poe ([id number]) [facility] ([facility]) [address] [place] [address] 96841 MCV (RBC) [Entitic vol] 102 fL High 80-100 [facility] Comment on above: Performed By: #### 6 00-7 #### BEVERLEY Poe ([id number]) [facility] ([facility]) [address] [place] [address] 50202 Nucleated RBC/100 WBC (Bld) [Ratio] 0.0 /100 WBCs Normal 0.0-0.0 [facility] Comment on above: Performed By: #### 6 00-7 #### BEVERLEY Poe ([id number]) [facility] ([facility]) [address] [place] [address] Platelets (Bld) [#/Vol] 92 x10*3/uL Low 150-450 [facility] Comment on above: Performed By: #### 6 00-7 #### BEVERLEY Poe ([id number]) [facility] ([facility]) [address] [place] [address] RBC (Bld) [#/Vol] 2.71 x10*6/uL Low 4.00-5.20 [facility] Comment on above: Performed By: #### 6 00-7 #### BEVERLEY Poe ([id number]) [facility] ([facility]) [address] [place] [address] WBC (Bld) [#/Vol] 4.3 x10*3/uL Low 4.4-11.3 [facility] Comment on above: Performed By: #### 6 00-7 #### BEVERLEY Poe ([id number]) [facility] ([facility]) [address] [place] [address] Cancer Ag 19-9on 09-20-2023 Cancer Ag 19-9 Qn 6.88 [arb'U]/mL Normal <35.[address] [facility] Comment on above: Order Comment: CA 19 -9 testing is performed by chemiluminescent immunoassay using the Data Symmetry. Values obtained with different analytic methods cannot [...] By: #### 2 341-6 #### BEVERLEY Poe ([id number]) [facility] ([facility]) [address] [place] [address] 72696 Cancer Ag 19-9 Qnon 09-20-20 Interpretation and review of laboratory results Normal [facility] Cancer Antigen 19-9on 2022 Cancer Ag 19-9 Qn 6.88 [arb'U]/mL NINF - 35.00 U/mL [facility] Glucose Test strip manual (B ld) [Mass/Vol]on 09-20-2023 Glucose [Mass/Vol] 210 mg/dL High 74 - 99 mg/dL [facility] Interpretation and review of laboratory results Abnormal [facility] Glucose [Mass/Vol] 210 mg/dL High 74-99 [facility] Comment on above: Performed By: #### 2 341-6 #### BEVERLEY Poe ([id number]) [facility] ([facility]) [address] [place] [address] 72134 Glucose [Mass/Vol] 114 mg/dL High 74 - 99 mg/dL [facility] Interpretation and review of laboratory results Abnormal [facility] Glucose [Mass/Vol] 114 mg/dL High 74-99 [facility] Comment on above: Performed By: #### 2 341-6 #### BEVERLEY Poe ([id number]) [facility] ([facility]) [address] [place] [address] 69110 Glucose [Mass/Vol] 152 mg/dL High 74 - 99 mg/dL [facility] Interpretation and review of laboratory results Abnormal [facility] Glucose [Mass/Vol] 152 mg/dL High 74-99 [facility] Comment on above: Performed By: #### 2 341-6 #### BEVERLEY Poe ([id number]) [facility] ([facility]) [address] [place] [address] 94265 Glucose [Mass/Vol] 140 mg/dL High 74 - 99 mg/dL [facility] Interpretation and review of laboratory results Abnormal [facility] Glucose [Mass/Vol] 140 mg/dL High 74-99 [facility] Comment on above: Performed By: #### 6 00-7 #### BEVERLEY Poe ([id number]) [facility] ([facility]) [address] [place] [address] 04262 Glucose [Mass/Vol] 125 mg/dL High 74 - 99 mg/dL [facility] Interpretation and review of laboratory results Abnormal [facility] Glucose [Mass/Vol] 125 mg/dL High 74-99 [facility] Comment on above: Performed By: #### 6 00-7 #### BEVERLEY Poe ([id number]) [facility] ([facility]) [address] [place] [address] 76005 Glucose [Mass/Vol] 111 mg/dL High 74 - 99 mg/dL [facility] Glucose [Mass/Vol] 213 mg/dL High 74 - 99 mg/dL [facility] Interpretation and review of laboratory results Abnormal [facility] Glucose [Mass/Vol] 109 mg/dL High 74 - 99 mg/dL [facility] Interpretation and review of laboratory results Abnormal [facility] Glucose [Mass/Vol] 109 mg/dL High 74-99 [facility] Comment on above: Performed By: #### 6 00-7 #### BEVERLEY Poe ([id number]) [facility] ([facility]) [address] [place] [address] 24613 HCV Ab Ql (S)on 09-20-2023 Interpretation and review of laboratory results Normal [facility] HIV 1+2 Ab+HIV1 p24 Agon HIV 1+2 Ab+HIV1 p24 Ag IA Ql Non-Reactive Normal Nonreactive [facility] Comment on above: Order Comment: HIV [...] By: #### 6 00-7 #### BEVERLEY Poe ([id number]) [facility] ([facility]) [address] [place] [address] 36624 HIV 1+2 Ab+HIV1 p24 Ag IA Ql on 09-20-2023 Interpretation and review of laboratory results Normal [facility] HIV 1/2 Antigen/Antibody Scr een with Reflex to Confirmationon 09-20-2023 HIV 1+2 Ab+HIV1 p24 Ag IA Ql Non-Reactive Nonreactive [facility] Hepatitis C Antibodyon 09-20 HCV Ab Ql (S) Non-Reactive Nonreactive [facility] Hepatitis C virus Abon 09-20 HCV Ab Ql (S) Non-Reactive Normal Nonreactive [facility] Comment on above: Result Comment: Resu lts from patients taking biotin supplements or receiving high-dose biotin therapy should be interpreted with caution due to possible interference with this test. Providers may contact their local laboratory for further information. Performed By: #### 6 00-7 #### BEVERLEY Poe ([id number]) [facility] ([facility]) [address] [place] [address] 08619 Magnesiumon 09-20-2023 Magnesium [Mass/Vol] 2.15 mg/dL 1.60 - 2.40 mg/dL [facility] Magnesium [Mass/Vol] 2.15 mg/dL Normal 1.60-2.40 [facility] Comment on above: Performed By: #### 6 00-7 #### BEVERLEY Poe ([id number]) [facility] ([facility]) [address] [place] [address] 00143 Magnesium [Mass/Vol]on 09-20 Interpretation and review of laboratory results Normal [facility] No Panel Informationon 09-20 [facility] MMODAL MMODAL [facility] Work Phone: No Panel InformationOrdered By: Steven Chacon on 09-20-[address] [facility] Work Phone: Renal function 2000 panelon 09-20-2023 Albumin BCP dye [Mass/Vol] 2.9 g/dL Low 3.4 - 5.0 g/dL [facility] Anion gap [Moles/Vol] 9 mmol/L Low 10 - 2 0 mmol/L [facility] Calcium [Mass/Vol] 8.7 mg/dL 8.6 - 10. 6 mg/dL [facility] Chloride [Moles/Vol] 99 mmol/L 98 - 10 7 mmol/L [facility] CO2 [Moles/Vol] 40 mmol/L Critically high 21 - 32 mmol/L [facility] Creatinine [Mass/Vol] 0.51 mg/dL 0.50 - 1.05 mg/dL [facility] GFR/1.73 sq M.predicted MDRD (S/P/Bld) [Vol rate/Area] - PINF [facility] Glucose [Mass/Vol] 117 mg/dL High 74 - 99 mg/dL [facility] Interpretation and review of laboratory results Abnormal [facility] Phosphate [Mass/Vol] 3.0 mg/dL 2.5 - 4 .9 mg/dL [facility] Potassium [Moles/Vol] 3.9 mmol/L 3.5 - 5.3 mmol/L [facility] Sodium [Moles/Vol] 144 mmol/L 136 - 145 mmol/L [facility] Urea nitrogen [Mass/Vol] 9 mg/dL 6 - 23 mg/dL [facility] Albumin BCP dye [Mass/Vol] 2.9 g/dL Low 3.4-5.0 [facility] Comment on above: Performed By: #### 6 -7 #### BEVERLEY Poe ([id number]) [facility] ([facility]) [address] [place] [address] Anion gap [Moles/Vol] 9 mmol/L Low 10-20 [facility] Comment on above: Performed By: #### 6 -7 #### BEVERLEY CARSONER L ([id number]) [facility] ([facility]) [address] [place] [address] Calcium [Mass/Vol] 8.7 mg/dL Normal 8.6-10.6 [facility] Comment on above: Performed By: #### 6 -7 #### BEVERLEY SCHMOTZER L ([id number]) [facility] ([facility]) [address] [place] [address] Chloride [Moles/Vol] 99 mmol/L Normal 98-107 [facility] Comment on above: Performed By: #### 6 00-7 #### BEVERLEY VORAMOTZER L ([id number]) [facility] ([facility]) [address] [place] [address] 50699 CO2 [Moles/Vol] 40 mmol/L Critically high 21-32 [facility] Comment on above: Performed By: #### 6 -7 #### BEVERLEY VORAMOTZER L ([id number]) [facility] ([facility]) [address] [place] [address] 74490 Creatinine [Mass/Vol] 0.51 mg/dL Normal 0.50-1.05 [facility] Comment on above: Performed By: #### 6 00-7 #### BEVERLEY VORAMOTZER L ([id number]) [facility] ([facility]) [address] [place] [address] 32831 GFR/1.73 sq M.predicted MDRD (S/P/Bld) [Vol rate/Area] mL/min/{1.73_m2} Normal >60 [facility] Comment on above: Result Comment: Calc ulations of estimated GFR are performed using the 2020 CKD-EPI Study Refit equation without the race variable for the IDMS-Traceable creatinine methods. https://jasn.asnjournals.org/content/early//ASN.00365 68758 Performed By: #### 6 00-7 #### BEVERLEY VORAMOTZER L ([id number]) [facility] ([facility]) [address] [place] [address] 31211 Glucose [Mass/Vol] 117 mg/dL High 74-99 [facility] Comment on above: Performed By: #### 6 -7 #### BEVERLEY DODD L ([id number]) [facility] ([facility]) [address] [place] [address] 76117 Phosphate [Mass/Vol] 3.0 mg/dL Normal 2.5-4.9 [facility] Comment on above: Result Comment: The performance characteristics of phosphorus testing in heparinized plasma have been validated by the individual laboratory site where testing is performed. Testing on heparinized plasma is not approved by the FDA; however, such approval is not necessary. Performed By: #### 6 -7 #### BEVERLEY Poe ([id number]) [facility] ([facility]) [address] [place] [address] 03581 Potassium [Moles/Vol] 3.9 mmol/L Normal 3.5-5.3 [facility] Comment on above: Performed By: #### 6 00-7 #### BEVERLEY DODD L ([id number]) [facility] ([facility]) [address] [place] [address] 31448 Sodium [Moles/Vol] 144 mmol/L Normal 136-145 [facility] Comment on above: Performed By: #### 6 -7 #### BEVERLEY VOARMOTZER L ([id number]) [facility] ([facility]) [address] [place] [address] 12005 Urea nitrogen [Mass/Vol] 9 mg/dL Normal 6-23 [facility] Comment on above: Performed By: #### 6 -7 #### BEVERLEY VORAMOTZER L ([id number]) [facility] ([facility]) [address] [place] [address] 57630 TRANSTHORACIC ECHO (TTE) [facility] 09-20-2023 TRANSTHORACIC ECHO (TTE) [facility], [address] [place] [address] 97254 and TRANSTHORACIC ECHOCARDIOGRAM REPORT Patient Name: POLI RAMIREZ Reading Physician: [id number] Kandi Roberts MD Study Date: 09/20/2023 Ordering Provider: [id number] VARSHA SOTELO MRN/PID: [id number] Fellow: Nurse: Mare Higgins Date of /Age: 12 1950 Flow Nurse: Muna Clinton RDCS years Gender: F Additional Staff: Height: 165.10 cm Admit Date: 09/15/2023 Weight: 74.84 kg Admission Status: Inpatient - Routine BSA: 1.82 m2 Department Location: [place] [facility] Non Invasive Blood Pressure: 126 /75 mmHg Study Type: TRANSTHORACIC ECHO (TTE) COMPLETE Diagnosis/ICD: Encounter for preprocedural cardiovascular examination-Z01.810 CPT Code: Echo Complete w Full Doppler-83211 Patient History: Pertinent History: Breast cancer, HTN, [...] LA Area A2C: 21.1 cm2 LA Major Ferdinand A4C: 5.5 cm LA Major Ferdinand A2C: 5.6 cm AORTA MEASUREMENTS: Normal Ranges: [...] (2.5-4.5cm2) Ao (more content not included)... Normal [facility] US Heart TransthoracicOrdere d By: Kandi Roberts on 09-20-2023 Aortic Valve Area by Continuity of Peak Velocity 1.[address] [facility] Work Phone: [phone] Aortic Valve Area by Continuity of VTI 2.[address] [facility] Work Phone: [phone] AV mn grad 9.[address] [facility] Work Phone: [phone] AV pk grad 15.[address] [facility] Work Phone: [phone] AV pk abiodun 1.[address] [facility] Work Phone: [phone] LA vol index A/L 36.[address] [facility] Work Phone: [phone] LV A4C EF 19.[address] [facility] Work Phone: LVIDd 5.[address] [facility] Work Phone: LVOT diam 1.[address] [facility] Work Phone: MV avg E/e' ratio 16.03 [facility] Work Phone: MV E/A ratio 0.[address] [facility] Work Phone: RV free wall pk S' 14.30 [facility] Work Phone: Tricuspid annular plane systolic excursion 2.[address] [facility] Work Phone: [facility] Work Phone: US Heart Transthoracicon SYNGO [facility] Work Phone: Bacteria identified Cx Nom ( Bld)on 09-19-2023 Interpretation and review of laboratory results Normal [facility] CBC panel Auto (Bld)on 09-19 Erythrocyte distribution width (RBC) [Ratio] 14.1 % 11.5 - 14.5 % [facility] Hematocrit (Bld) [Volume fraction] 28.2 % Low 36.0 - 46.0 % [facility] Hemoglobin (Bld) [Mass/Vol] 8.4 g/dL Low 12.0 - 16.0 g/dL [facility] Interpretation and review of laboratory results Abnormal [facility] MCH (RBC) [Entitic mass] 30.9 pg 26.0 - 34.[address] [facility] MCHC (RBC) [Mass/Vol] 29.8 g/dL Low 32.0 - 36.0 g/dL [facility] MCV (RBC) [Entitic vol] 104 fL High 80 - [address] [facility] Nucleated RBC/100 WBC (Bld) [Ratio] 0.0 % [facility] Platelets (Bld) [#/Vol] 90 10*3/uL Low [facility] RBC (Bld) [#/Vol] 2.72 10*6/uL Low [facility] WBC (Bld) [#/Vol] 4.2 10*3/uL [facility] Erythrocyte distribution width (RBC) [Ratio] 14.1 % Normal 11.5-14.5 [facility] Comment on above: Performed By: #### 5 7021-8 #### BEVERLEY Poe ([id number]) [facility] ([facility]) [address] [place] [address] 77762 Hematocrit (Bld) [Volume fraction] 28.2 % Low 36.0-46.0 [facility] Comment on above: Performed By: #### 5 7021-8 #### BEVERLEY Poe ([id number]) [facility] ([facility]) [address] [place] [address] 54558 Hemoglobin (Bld) [Mass/Vol] 8.4 g/dL Low 12.0-16.0 [facility] Comment on above: Performed By: #### 5 7021-8 #### BEVERLEY Poe ([id number]) [facility] ([facility]) [address] [place] [address] 63201 MCH (RBC) [Entitic mass] 30.9 pg Normal 26.0-34.0 [facility] Comment on above: Performed By: #### 5 7021-8 #### BEVERLEY Poe ([id number]) [facility] ([facility]) [address] [place] [address] 47926 MCHC (RBC) [Mass/Vol] 29.8 g/dL Low 32.0-36.0 [facility] Comment on above: Performed By: #### 5 7021-8 #### BEVERLEY Poe ([id number]) [facility] ([facility]) [address] [place] [address] 18276 MCV (RBC) [Entitic vol] 104 fL High 80-100 [facility] Comment on above: Performed By: #### 5 7021-8 #### BEVERLEY Poe ([id number]) [facility] ([facility]) [address] [place] [address] 77491 Nucleated RBC/100 WBC (Bld) [Ratio] 0.0 /100 WBCs Normal 0.0-0.0 [facility] Comment on above: Performed By: #### 5 7021-8 #### BEVERLEY Poe ([id number]) [facility] ([facility]) [address] [place] [address] Platelets (Bld) [#/Vol] 90 x10*3/uL Low 150-450 [facility] Comment on above: Performed By: #### 5 7021-8 #### BEVERLEY Poe ([id number]) [facility] ([facility]) [address] [place] [address] RBC (Bld) [#/Vol] 2.72 x10*6/uL Low 4.00-5.20 [facility] Comment on above: Performed By: #### 5 7021-8 #### BEVERLEY DODD L ([id number]) [facility] ([facility]) [address] [place] [address] WBC (Bld) [#/Vol] 4.2 x10*3/uL Low 4.4-11.3 [facility] Comment on above: Performed By: #### 5 7021-8 #### BEVERLEY DODD L ([id number]) [facility] ([facility]) [address] [place] [address] CT HEAD WO IV CONTRASTon CT HEAD WO IV CONTRAST Interpreted By: Susy Bright, STUDY: CT HEAD WO IV CONTRAST; 09/19/2023 3:43 pm INDICATION: Signs/Symptoms:R/o subdural hematoma, thrombocytopenia workup (fall several weeks ago). COMPARISON: None. ACCESSION NUMBER(S): [id number] ORDERING CLINICIAN: KANG JULIAN TECHNIQUE: Axial CT [...] Susy Canales 09/19/2023 4:06 PM Dictation workstation: [id number] Normal [facility] CT Head WO contraston 2022 [facility] MMODAL [facility] MM[facility]AL [facility] Work Phone: Radiology Study observation (narrative) [facility] Work Phone: CT Head WO contrastOrdered B y: Susy Canales on 09-19-[address] [facility] Work Phone: ECG 12-LEADon 09-19-2023 ECG 12-LEAD Ventricular Rate 104 Atrial Rate 104 P-R Interval 150 QRS Duration 136 Q-T Interval 352 QTC Calculation(Bazett) 462 P Ferdinand 67 R Ferdinand -54 T Ferdinand 70 QRS Count 17 Q Onset 212 P Onset 137 P Offset 193 T Offset 388 QTC Fredericia 422 Diagnosis Sinus tachycardia with occasional Premature ventricular complexes Left bundle branch block Abnormal ECG When compared with ECG of 19-SEP-2023 12:28, (unconfirmed) Premature ventricular complexes are now Present Confirmed by Simon Piedra ([id number]) on 09/27/2023 12:27:49 PM Normal [facility] ECG 12-LEAD Ventricular Rate 96 Atrial Rate 96 P-R Interval 156 QRS Duration 136 Q-T Interval 380 QTC Calculation(Bazett) 480 P Ferdinand 61 R Ferdinand -49 T Ferdinand 77 QRS Count 16 Q Onset 211 P Onset 133 P Offset 197 T Offset 401 QTC Fredericia 444 Diagnosis Sinus rhythm with occasional Premature ventricular complexes Left axis deviation Left bundle branch block Abnormal ECG No previous ECGs available Confirmed by Harrison Piedra ([id number]) on 09/26/2023 9:00:49 AM Normal [facility] Gas panel (BldA)Ordered By: Allyssa Bach on 09-19-2023 Base excess Calc (Bld) [Moles/Vol] 14.9 mmol/L High -2.0 - 3.0 mmol/L [facility] CO2 (Bld) [Partial pressure] 61 mm[Hg] High [facility] HCO3 (Bld) [Moles/Vol] 41.4 mmol/L High 22.0 - 26.0 mmol/L [facility] Inhaled oxygen concentration 28 % [facility] Interpretation and review of laboratory results Abnormal [facility] Oxygen (Bld) [Partial pressure] 121 mm[Hg] High [facility] Oxyhemoglobin (BldA) [Mass fraction] 96.7 % 94.0 - 98.0 % [facility] pH (Bld) 7.44 [pH] High 7.38 - 7.42 pH [facility] Gas panel (BldA)on Base excess Calc (Bld) [Moles/Vol] 14.9 mmol/L High -2.0-3.0 [facility] Comment on above: Order Comment: While on baseline/ home level of oxygen Performed By: #### 6 00-7 #### BEVERLEY Poe ([id number]) [facility] ([facility]) [address] [place] [address] 93451 CO2 (Bld) [Partial pressure] 61 mm Hg High 38-42 [facility] Comment on above: Order Comment: While on baseline/ home level of oxygen Performed By: #### 6 00-7 #### BEVERLEY PATELTZER L ([id number]) [facility] ([facility]) [address] [place] [address] HCO3 (Bld) [Moles/Vol] 41.4 mmol/L High 22.0-26.0 [facility] Comment on above: Order Comment: While on baseline/ home level of oxygen Performed By: #### 6 00-7 #### BEVERLEY VORAMOTZER L ([id number]) [facility] ([facility]) [address] [place] [address] 82970 Inhaled oxygen concentration 28 % Normal [facility] Comment on above: Order Comment: While on baseline/ home level of oxygen Performed By: #### 6 00-7 #### BEVERLEY Poe ([id number]) [facility] ([facility]) [address] [place] [address] 64628 Oxygen (Bld) [Partial pressure] 121 mm Hg High 85-95 [facility] Comment on above: Order Comment: While on baseline/ home level of oxygen Performed By: #### 6 00-7 #### BEVERLEY Poe ([id number]) [facility] ([facility]) [address] [place] [address] 07592 Oxyhemoglobin (BldA) [Mass fraction] 96.7 % Normal 94.0-98.0 [facility] Comment on above: Order Comment: While on baseline/ home level of oxygen Performed By: #### 6 -7 #### BEVERLEY Poe ([id number]) [facility] ([facility]) [address] [place] [address] 25490 pH (Bld) 7.44 [pH] High 7.38-7.42 [facility] Comment on above: Order Comment: While on baseline/ home level of oxygen Performed By: #### 6 -7 #### BEVERLEY Poe ([id number]) [facility] ([facility]) [address] [place] [address] 45293 Glucose Test strip manual (B ld) [Mass/Vol]on 09-19-2023 Glucose [Mass/Vol] 213 mg/dL High 74-99 [facility] Comment on above: Performed By: #### 6 00-7 #### BEVERLEY DODD L ([id number]) [facility] ([facility]) [address] [place] [address] 29441 Glucose [Mass/Vol] 158 mg/dL High 74 - 99 mg/dL [facility] [facility] Interpretation and review of laboratory results Abnormal [facility] Glucose [Mass/Vol] 158 mg/dL High 74-99 [facility] Comment on above: Performed By: #### 6 00-7 #### BEVERLEY Poe ([id number]) [facility] ([facility]) [address] [place] [address] 53507 Glucose [Mass/Vol] 98 mg/dL 74 - 99 mg/dL [facility] Interpretation and review of laboratory results Normal [facility] Glucose [Mass/Vol] 98 mg/dL Normal 74-99 [facility] Comment on above: Performed By: #### 6 00-7 #### BEVERLEY Poe ([id number]) [facility] ([facility]) [address] [place] [address] 30378 Glucose [Mass/Vol] 111 mg/dL High 74-99 [facility] Comment on above: Performed By: #### 6 00-7 #### BEVERLEY Poe ([id number]) [facility] ([facility]) [address] [place] [address] 14181 Glucose [Mass/Vol] 164 mg/dL High 74 - 99 mg/dL [facility] Interpretation and review of laboratory results Abnormal [facility] Glucose [Mass/Vol] 164 mg/dL High 74-99 [facility] Comment on above: Performed By: #### 5 7021-8 #### BEVERLEY Poe ([id number]) [facility] ([facility]) [address] [place] [address] 71221 Glucose [Mass/Vol] 124 mg/dL High 74 - 99 mg/dL [facility] Interpretation and review of laboratory results Abnormal [facility] Glucose [Mass/Vol] 124 mg/dL High 74-99 [facility] Comment on above: Performed By: #### 5 7021-8 #### BEVERLEY Poe ([id number]) [facility] ([facility]) [address] [place] [address] 05412 HBV surface Ag IA Qlon 09-19 Interpretation and review of laboratory results Normal [facility] Hepatitis B Surface Antigeno n 09-19-2023 HBV surface Ag IA Ql Non-Reactive Nonreactive U [facility] - Microbiology an d Antimicrobial susceptibilityon 09-19-2023 Bacteria identified Cx Nom (Bld) No growth at 4 days - FINAL REPORT [facility] Magnesiumon 09-19-2023 Magnesium [Mass/Vol] 2.22 mg/dL 1.60 - 2.40 mg/dL [facility] Magnesium [Mass/Vol] 2.22 mg/dL Normal 1.60-2.40 [facility] Comment on above: Performed By: #### 6 00-7 #### BEVERLEY Poe ([id number]) [facility] ([facility]) [address] [place], [place] [address] Magnesium [Mass/Vol]on 09-19 Interpretation and review of laboratory results Normal [facility] Natriuretic peptide B [Mass/ Vol]on 09-19-2023 Interpretation and review of laboratory results Abnormal [facility] Natriuretic peptide B (Bld) [Mass/Vol] 154 pg/mL High 0 - 99 pg/mL [facility] Natriuretic peptide B (Bld) [Mass/Vol] 154 pg/mL High 0-99 [facility] Comment on above: Order Comment: <100 pg/mL - Heart failure nkqadjns225-962 pg/mL - Intermediate probability of acute heart [...] By: #### 6 00-7 #### BEVERLEY Poe ([id number]) [facility] ([facility]) [address] [place] [address] 41373 No Panel Informationon 09-19 Radiology Study observation (narrative) [facility] Work Phone: [facility] PT and aPTT panel Coag (PPP) on 09-19-2023 aPTT Coag (PPP) [Time] 32 s [facility] INR Coag (PPP) [Relative time] 1.1 {INR} 0.9 - 1.[address] [facility] Interpretation and review of laboratory results Normal [facility] PT Coag (PPP) [Time] 12.3 s [facility] aPTT Coag (PPP) [Time] 32 s Normal 27-[address] [facility] Comment on above: Order Comment: The A PTT is no longer used for monitoring Unfractionated Heparin Therapy. For monitoring Heparin Therapy, use the Heparin Assay. Performed By: #### 5 7021-8 #### BEVRELEY Poe ([id number]) [facility] ([facility]) [address] [place] [address] 50263 INR Coag (PPP) [Relative time] 1.1 Normal 0.9-1.1 [facility] Comment on above: Order Comment: The A PTT is no longer used for monitoring Unfractionated Heparin Therapy. For monitoring Heparin Therapy, use the Heparin Assay. Performed By: #### 5 7021-8 #### BEVERLEY Poe ([id number]) [facility] ([facility]) [address] [place] [address] 64581 PT Coag (PPP) [Time] 12.3 s Normal 9.8-12.8 [facility] Comment on above: Order Comment: The A PTT is no longer used for monitoring Unfractionated Heparin Therapy. For monitoring Heparin Therapy, use the Heparin Assay. Performed By: #### 5 7021-8 #### BEVERLEY Poe ([id number]) [facility] ([facility]) [address] [place] [address] 06029 Renal function 2000 panelon 09-19-2023 Albumin BCP dye [Mass/Vol] 2.8 g/dL Low 3.4 - 5.0 g/dL [facility] Anion gap [Moles/Vol] 14 mmol/L 10 - 2 0 mmol/L [facility] Calcium [Mass/Vol] 8.2 mg/dL Low 8.6 - 10. 6 mg/dL [facility] Chloride [Moles/Vol] 101 mmol/L 98 - 10 7 mmol/L [facility] CO2 [Moles/Vol] 35 mmol/L High 21 - 32 mmol/L [facility] Creatinine [Mass/Vol] 0.40 mg/dL Low 0.50 - 1.05 mg/dL [facility] GFR/1.73 sq M.predicted MDRD (S/P/Bld) [Vol rate/Area] - PINF [facility] Glucose [Mass/Vol] 122 mg/dL High 74 - 99 mg/dL [facility] Interpretation and review of laboratory results Abnormal [facility] Phosphate [Mass/Vol] 2.9 mg/dL 2.5 - 4 .9 mg/dL [facility] Potassium [Moles/Vol] 3.9 mmol/L 3.5 - 5.3 mmol/L [facility] Sodium [Moles/Vol] 146 mmol/L High 136 - 145 mmol/L [facility] Urea nitrogen [Mass/Vol] 9 mg/dL 6 - 23 mg/dL [facility] Albumin BCP dye [Mass/Vol] 2.8 g/dL Low 3.4-5.0 [facility] Comment on above: Performed By: #### 6 00-7 #### BEVERLEY Poe ([id number]) [facility] ([facility]) [address] [place] [address] 35176 Anion gap [Moles/Vol] 14 mmol/L Normal 10-20 [facility] Comment on above: Performed By: #### 6 00-7 #### BEVERLEY Poe ([id number]) [facility] ([facility]) [address] [place] [address] 05855 Calcium [Mass/Vol] 8.2 mg/dL Low 8.6-10.6 [facility] Comment on above: Performed By: #### 6 00-7 #### BEVERLEY Poe ([id number]) [facility] ([facility]) [address] [place] [address] 29694 Chloride [Moles/Vol] 101 mmol/L Normal 98-107 [facility] Comment on above: Performed By: #### 6 00-7 #### BEVERLEY Poe ([id number]) [facility] ([facility]) [address] [place] [address] CO2 [Moles/Vol] 35 mmol/L High 21-32 [facility] Comment on above: Performed By: #### 6 00-7 #### BEVERLEY Poe ([id number]) [facility] ([facility]) [address] [place] [address] Creatinine [Mass/Vol] 0.40 mg/dL Low 0.50-1.05 [facility] Comment on above: Performed By: #### 6 00-7 #### BEVERLEY Poe ([id number]) [facility] ([facility]) [address] [place] [address] GFR/1.73 sq M.predicted MDRD (S/P/Bld) [Vol rate/Area] mL/min/{1.73_m2} Normal >60 [facility] Comment on above: Result Comment: Calc ulations of estimated GFR are performed using the 2020 CKD-EPI Study Refit equation without the race variable for the IDMS-Traceable creatinine methods. https://jasn.asnjournals.org/content//ASN.13600 02777 Performed By: #### 6 00-7 #### BEVERLEY Poe ([id number]) [facility] ([facility]) [address] [place] [address] Glucose [Mass/Vol] 122 mg/dL High 74-99 [facility] Comment on above: Performed By: #### 6 00-7 #### BEVERLEY Poe ([id number]) [facility] ([facility]) [address] [place] [address] Phosphate [Mass/Vol] 2.9 mg/dL Normal 2.5-4.9 [facility] Comment on above: Result Comment: The performance characteristics of phosphorus testing in heparinized plasma have been validated by the individual laboratory site where testing is performed. Testing on heparinized plasma is not approved by the FDA; however, such approval is not necessary. Performed By: #### -7 #### BEVERLEY SCHMOTZER L ([id number]) [facility] ([facility]) [address] [place] [address] Potassium [Moles/Vol] 3.9 mmol/L Normal 3.5-5.3 [facility] Comment on above: Performed By: #### 6 00-7 #### BEVERLEY SCHMOTZER L ([id number]) [facility] ([facility]) [address] [place] [address] Sodium [Moles/Vol] 146 mmol/L High 136-145 [facility] Comment on above: Performed By: #### 6 00-7 #### BEVERLEY SCHMOTZER L ([id number]) [facility] ([facility]) [address] [place] [address] 25811 Urea nitrogen [Mass/Vol] 9 mg/dL Normal 6-23 [facility] Comment on above: Performed By: #### 6 00-7 #### BEVERLEY SCHMOTZER L ([id number]) [facility] ([facility]) [address] [place] [address] 23732 US ABDOMEN LIMITED LIVERon 1 11-19-2022 US ABDOMEN LIMITED LIVER Interpreted By: Steven Chacon and Ebai Jerky STUDY: US ABDOMEN LIMITED LIVER; [facility] US ABDOMINAL/PELVIC DUPLEX COMPLETE; 09/19/2023 6:30 pm INDICATION: 72 y/o F with Signs/Symptoms:Throbocyto penia workup; Signs/Symptoms:per doctor request. COMPARISON: None. ACCESSION NUMBER(S): [id number]; [id number] ORDERING CLINICIAN: KANG JULIAN TECHNIQUE: Multiple images of the right upper quadrant were obtained. Gates scale, color Doppler and spectral Doppler waveform analysis was performed. This examination was interpreted at [facility], [place]. FINDINGS: The liver measures 22.6 cm and [...] as stated. This study was interpreted at [facility], [place], [place]. MACRO: None Signed by: Steven Chacon 09/20/2023 5:44 AM Dictation workstation: [id number] Normal [facility] Comment on above: Order Comment: Pleas e include portal vein flow velocitys [facility] US ABDOMINAL/PELVIC DUP SRINATH COMPLETEon 09-19-2023 VAS US ABDOMINAL/PELVIC DUPLEX COMPLETE Interpreted By: Steven Chacon, and Kim Sheikh STUDY: US ABDOMEN LIMITED LIVER; VASC US ABDOMINAL/PELVIC DUPLEX COMPLETE; 09/19/2023 6:30 pm INDICATION: 72 y/o F with Signs/Symptoms:Throbocyto penia workup; Signs/Symptoms:per doctor request. COMPARISON: None. ACCESSION NUMBER(S): [id number]; [id number] ORDERING CLINICIAN: KANG JULIAN TECHNIQUE: Multiple images of the right upper quadrant were obtained. Gates scale, color Doppler and spectral Doppler waveform analysis was performed. This examination was interpreted at [facility] [place]. FINDINGS: The liver measures 22.6 cm and [...] as stated. This study was interpreted at [place], [place]. MACRO: None Signed by: Steven Chacon 09/20/2023 5:44 AM Dictation workstation: [id number] [facility] Comment on above: Order Comment: Pleas e include portal vein flow velocitys XR CHEST 1 VIEWon 09-19-2023 XR CHEST 1 VIEW Interpreted By: Delfin Clemens and [place] Lesley STUDY: XR CHEST 1 VIEW; 09/19/2023 8:46 am INDICATION: Signs/Symptoms:copd on oxygen. COMPARISON: Outside hospital CT chest 03/20/2014 ACCESSION NUMBER(S): [id number] ORDERING CLINICIAN: RIMA APPLE FINDINGS: Single AP [...] as stated. This study was interpreted at [facility], [place], [place]. MACRO: None Signed by: Delfin Menezes 09/19/2023 9:36 AM Dictation workstation: [id number] Normal [facility] XR Chest Single viewon 09-19 [facility] MMODAL [facility] MMODAL [facility] Work Phone: Radiology Study observation (narrative) [facility] Work Phone: XR Chest Single viewOrdered By: Delfin Menezes on 09-19-[address] [facility] Work Phone: CBC panel Auto (Bld)on 09-18 Erythrocyte distribution width (RBC) [Ratio] 13.8 % 11.5 - 14.5 % [facility] Hematocrit (Bld) [Volume fraction] 26.9 % Low 36.0 - 46.0 % [facility] Hemoglobin (Bld) [Mass/Vol] 8.0 g/dL Low 12.0 - 16.0 g/dL [facility] Interpretation and review of laboratory results Abnormal [facility] MCH (RBC) [Entitic mass] 30.3 pg 26.0 - 34.[address] [facility] MCHC (RBC) [Mass/Vol] 29.7 g/dL Low 32.0 - 36.0 g/dL [facility] MCV (RBC) [Entitic vol] 102 fL High 80 - [address] [facility] Nucleated RBC/100 WBC (Bld) [Ratio] 0.0 % [facility] Platelets (Bld) [#/Vol] 91 10*3/uL Low [facility] RBC (Bld) [#/Vol] 2.64 10*6/uL [facility] WBC (Bld) [#/Vol] 4.2 10*3/uL [facility] Erythrocyte distribution width (RBC) [Ratio] 13.8 % Normal 11.5-14.5 [facility] Comment on above: Performed By: #### 2 4323-8 #### BEVERLEY Poe ([id number]) [facility] ([facility]) [address] [place] [address] 35568 Hematocrit (Bld) [Volume fraction] 26.9 % Low 36.0-46.0 [facility] Comment on above: Performed By: #### 2 4323-8 #### BEVERLEY Poe ([id number]) [facility] ([facility]) [address] [place] [address] 05389 Hemoglobin (Bld) [Mass/Vol] 8.0 g/dL Low 12.0-16.0 [facility] Comment on above: Performed By: #### 2 4323-8 #### BEVERLEY Poe ([id number]) [facility] ([facility]) [address] [place] [address] 19354 MCH (RBC) [Entitic mass] 30.3 pg Normal 26.0-34.0 [facility] Comment on above: Performed By: #### 2 4323-8 #### BEVERLEY Poe ([id number]) [facility] ([facility]) [address] [place] [address] 21591 MCHC (RBC) [Mass/Vol] 29.7 g/dL Low 32.0-36.0 [facility] Comment on above: Performed By: #### 2 4323-8 #### BEVERLEY Poe ([id number]) [facility] ([facility]) [address] [place] [address] 87896 MCV (RBC) [Entitic vol] 102 fL High 80-100 [facility] Comment on above: Performed By: #### 2 4323-8 #### BEVERLEY Poe ([id number]) [facility] ([facility]) [address] [place] [address] 31308 Nucleated RBC/100 WBC (Bld) [Ratio] 0.0 /100 WBCs Normal 0.0-0.0 [facility] Comment on above: Performed By: #### 2 4323-8 #### BEVERLEY Poe ([id number]) [facility] ([facility]) [address] [place] [address] 42050 Platelets (Bld) [#/Vol] 91 x10*3/uL Low 150-450 [facility] Comment on above: Performed By: #### 2 4323-8 #### BEVERLEY Poe ([id number]) [facility] ([facility]) [address] [place] [address] 13858 RBC (Bld) [#/Vol] 2.64 x10*6/uL Low 4.00-5.20 [facility] Comment on above: Performed By: #### 2 4323-8 #### BEVERLEY Poe ([id number]) [facility] ([facility]) [address] [place] [address] 06987 WBC (Bld) [#/Vol] 4.2 x10*3/uL Low 4.4-11.3 [facility] Comment on above: Performed By: #### 2 4323-8 #### BEVERLEY Poe ([id number]) [facility] ([facility]) [address] [place] [address] 10456 Cancer Ag 125on 09-18-2023 Cancer Ag 125 Qn 22.0 [arb'U]/mL Normal 0.0-30.2 [facility] Comment on above: Order Comment: CA 12 5 testing is performed by chemiluminescent immunoassay using the Data Symmetry. Values obtained with different analytic methods cannot [...] By: #### 3 4532-2 #### BEVERLEY Poe ([id number]) [facility] ([facility]) [address] [place] [address] 21372 Ferritinon 09-18-2023 Ferritin [Mass/Vol] 344 ng/mL High 8 - 150 ng/mL [facility] Ferritin [Mass/Vol] 344 ng/mL High 8-150 [facility] Comment on above: Performed By: #### 5 7021-8 #### BEVERLEY Poe ([id number]) [facility] ([facility]) [address] [place] [address] 19588 Glucose Test strip manual (B ld) [Mass/Vol]on 09-18-2023 Glucose [Mass/Vol] 119 mg/dL High 74 - 99 mg/dL [facility] Interpretation and review of laboratory results Abnormal [facility] Glucose [Mass/Vol] 119 mg/dL High 74-99 [facility] Comment on above: Performed By: #### 5 7021-8 #### BEVERELY Poe ([id number]) [facility] ([facility]) [address] [place] [address] 06505 Glucose [Mass/Vol] 135 mg/dL High 74 - 99 mg/dL [facility] Interpretation and review of laboratory results Abnormal [facility] Glucose [Mass/Vol] 135 mg/dL High 74-99 [facility] Comment on above: Performed By: #### 2 4323-8 #### BEVERLEY Poe ([id number]) [facility] ([facility]) [address] [place] [address] 97657 Glucose [Mass/Vol] 108 mg/dL High 74 - 99 mg/dL [facility] Interpretation and review of laboratory results Abnormal [facility] Glucose [Mass/Vol] 108 mg/dL High 74-99 [facility] Comment on above: Performed By: #### 2 4323-8 #### BEVERLEY Poe ([id number]) [facility] ([facility]) [address] [place] [address] 75915 HbA1c (Bld) [Mass fraction]o n 09-18-2023 Average glucose Estimated from glycated hemoglobin (Bld) [Mass/Vol] 91 mg/dL Not Established [facility] Average glucose Estimated from glycated hemoglobin (Bld) [Mass/Vol] 91 mg/dL Normal Not Established [facility] Comment on above: Order Comment: Diagn osis of Ontbavix-SgbjblXdj-Zrbpsfyc: < or = 5.6%Increased risk for developing diabetes: 5.7-6.4%Diagnostic of diabetes: > or = 6.5%Monitoring of DiabetesAge (y)....................... Therapeutic Goal (%)Adults: >18.........................<7.0Pediatrics: 13-18...................<7.5Pediatrics: 7-12....................<8.0Pediatrics: 0-6..................... 7.5-8.5American Diabetes Association. Diabetes Care 33(S1)Nov 2009 Performed By: #### 2 4323-8 #### BEVERLEY Poe ([id number]) [facility] ([facility]) [address] [place] [id number] Hemoglobin A1con 09-18-2023 HbA1c (Bld) [Mass fraction] 4.8 % see below [facility] Hemoglobin A1c/Hemoglobin.to daphne 09-18-2023 HbA1c (Bld) [Mass fraction] 4.8 % Normal see below [facility] Comment on above: Order Comment: Diagn osis of Pkbfymxp-WlibshApd-Obfecvcc: < or = 5.6%Increased risk for developing diabetes: 5.7-6.4%Diagnostic of diabetes: > or = 6.5%Monitoring of DiabetesAge (y)....................... Therapeutic Goal (%)Adults: >18.........................<7.0Pediatrics: 13-18...................<7.5Pediatrics: 7-12....................<8.0Pediatrics: 0-6..................... 7.5-8.5American Diabetes Association. Diabetes Care 33(S1), Nov 2009 Performed By: #### 2 4323-8 #### BEVERLEY Poe ([id number]) [facility] ([facility]) [address] [place] [address] Hepatic function 2000 panelo n 09-18-2023 Albumin BCP dye [Mass/Vol] 2.7 g/dL Low 3.4 - 5.0 g/dL [facility] ALP [Catalytic activity/Vol] 47 U/L 33 - 136 U/L [facility] ALT With P-5'-P [Catalytic activity/Vol] 7 U/L 7 - 45 U/L [facility] AST With P-5'-P [Catalytic activity/Vol] 10 U/L 9 - 39 U/L [facility] Bilirubin [Mass/Vol] 0.4 mg/dL 0.0 - 1 .2 mg/dL [facility] Bilirubin.direct [Mass/Vol] 0.1 mg/dL 0.0 - 0.3 mg/dL [facility] Interpretation and review of laboratory results Abnormal [facility] Protein [Mass/Vol] 5.7 g/dL Low 6.4 - 8.2 g/dL [facility] Albumin BCP dye [Mass/Vol] 2.7 g/dL Low 3.4-5.0 [facility] Comment on above: Performed By: #### 2 4323-8 #### BEVERLEY Poe ([id number]) [facility] ([facility]) [address] [place] [address] ALP [Catalytic activity/Vol] 47 U/L Normal 33-136 [facility] Comment on above: Performed By: #### 2 4323-8 #### BEVERLEY Poe ([id number]) [facility] ([facility]) [address] [place] [address] 98976 ALT With P-5'-P [Catalytic activity/Vol] 7 U/L Normal 7-45 [facility] Comment on above: Result Comment: Ирина ents treated with Sulfasalazine may generate falsely decreased results for ALT. Performed By: #### 2 4323-8 #### BEVERLEY Poe ([id number]) [facility] ([facility]) [address] [place] [address] AST With P-5'-P [Catalytic activity/Vol] 10 U/L Normal 9-39 [facility] Comment on above: Performed By: #### 2 4323-8 #### BEVERLEY Poe ([id number]) [facility] ([facility]) [address] [place] [address] Bilirubin [Mass/Vol] 0.4 mg/dL Normal 0.0-1.2 [facility] Comment on above: Performed By: #### 2 4323-8 #### BEVERLEY Poe ([id number]) [facility] ([facility]) [address] [place] [address] 31583 Bilirubin.direct [Mass/Vol] 0.1 mg/dL Normal 0.0-0.3 [facility] Comment on above: Performed By: #### 2 4323-8 #### BEVERLEY Poe ([id number]) [facility] ([facility]) [address] [place] [address] 95005 Protein [Mass/Vol] 5.7 g/dL Low 6.4-8.2 [facility] Comment on above: Performed By: #### 2 4323-8 #### BEVERLEY Poe ([id number]) [facility] ([facility]) [address] [place], [place] [address] Hepatitis B virus surface Ag on 09-18-2023 HBV surface Ag IA Ql Non-Reactive Normal Nonreactive [facility] Comment on above: Result Comment: Biot in interference may cause falsely decreased results. Patients taking a Biotin dose of up to 5 mg/day should refrain from taking Biotin for 24 hours before sample collection. Providers may contact their local laboratory for further information. Performed By: #### 6 00-7 #### BEVERLEY Poe ([id number]) [facility] ([facility]) [address] [place], [place] [address] Iron and Iron binding capaci ty panelon 09-18-2023 Iron [Mass/Vol] 33 ug/dL Low 35 - 150 ug/dL [facility] Iron binding capacity [Mass/Vol] 164 ug/dL Low 240 - 445 ug/dL [facility] Iron binding capacity.unsaturated [Mass/Vol] 131 ug/dL 110 - 370 ug/dL [facility] Iron saturation [Mass fraction] 20 % Low 25 - 45 % [facility] Iron [Mass/Vol] 33 ug/dL Low 35-150 [facility] Comment on above: Performed By: #### 5 7021-8 #### BEVERLEY Poe ([id number]) [facility] [facility]) [address] [place] [address] 83015 Iron binding capacity [Mass/Vol] 164 ug/dL Low 240-445 [facility] Comment on above: Performed By: #### 5 7021-8 #### BEVERLEY Poe ([id number]) [facility] ([facility]) [address] [place] [address] 27394 Iron binding capacity.unsaturated [Mass/Vol] 131 ug/dL Normal 110-370 [facility] Comment on above: Performed By: #### 5 7021-8 #### BEVERLEY Poe ([id number]) [facility] ([facility]) [address] [place] [address] 11780 Iron saturation [Mass fraction] 20 % Low 25-45 [facility] Comment on above: Performed By: #### 5 7021-8 #### BEVERLEY oPe ([id number]) [facility] ([facility]) [address] [place] [address] 58881 Magnesiumon 09-18-2023 Magnesium [Mass/Vol] 1.80 mg/dL 1.60 - 2.40 mg/dL [facility] Magnesium [Mass/Vol] 1.80 mg/dL Normal 1.60-2.40 [facility] Comment on above: Performed By: #### 2 4323-8 #### BEVERLEY Poe ([id number]) [facility] ([facility]) [address] [place] [address] 36149 Magnesium [Mass/Vol]on 09-18 Interpretation and review of laboratory results Normal [facility] Natriuretic peptide B [Mass/ Vol]on 09-18-2023 Interpretation and review of laboratory results Abnormal [facility] Natriuretic peptide B (Bld) [Mass/Vol] 144 pg/mL High 0 - 99 pg/mL [facility] Natriuretic peptide B (Bld) [Mass/Vol] 144 pg/mL High 0-99 [facility] Comment on above: Order Comment: <100 pg/mL - Heart failure [id number] pg/mL - Intermediate probability of acute heart [...] By: #### 5 7021-8 #### BEVERLEY Poe ([id number]) [facility] ([facility]) [address] [place] [address] No Panel Informationon 09-18 Interpretation and review of laboratory results Abnormal [facility] Prealbuminon 09-18-2023 Prealbumin [Mass/Vol] 11.4 mg/dL Low 18.0 - 40.0 mg/dL [facility] Prealbumin [Mass/Vol] 11.4 mg/dL Low 18.0-40.0 [facility] Comment on above: Performed By: #### 5 7021-8 #### BEVERLEY Poe ([id number]) [facility] ([facility]) [address] [place] [address] Prealbumin [Mass/Vol]on Interpretation and review of laboratory results Abnormal [facility] Renal function 2000 panelon 09-18-2023 Albumin BCP dye [Mass/Vol] 2.8 g/dL Low 3.4 - 5.0 g/dL [facility] Anion gap [Moles/Vol] 12 mmol/L 10 - 2 0 mmol/L [facility] Calcium [Mass/Vol] 8.6 mg/dL 8.6 - 10. 6 mg/dL [facility] Chloride [Moles/Vol] 99 mmol/L 98 - 10 7 mmol/L [facility] CO2 [Moles/Vol] 39 mmol/L High 21 - 32 mmol/L [facility] Creatinine [Mass/Vol] 0.37 mg/dL Low 0.50 - 1.05 mg/dL [facility] GFR/1.73 sq M.predicted MDRD (S/P/Bld) [Vol rate/Area] - PINF [facility] Glucose [Mass/Vol] 99 mg/dL 74 - 99 mg/dL [facility] Interpretation and review of laboratory results Abnormal [facility] Phosphate [Mass/Vol] 2.8 mg/dL 2.5 - 4 .9 mg/dL [facility] Potassium [Moles/Vol] 3.6 mmol/L 3.5 - 5.3 mmol/L [facility] Sodium [Moles/Vol] 146 mmol/L High 136 - 145 mmol/L [facility] Urea nitrogen [Mass/Vol] 11 mg/dL 6 - 23 mg/dL [facility] Albumin BCP dye [Mass/Vol] 2.8 g/dL Low 3.4-5.0 [facility] Comment on above: Performed By: #### 2 4323-8 #### BEVERLEY Poe ([id number]) [facility] ([facility]) [address] [place] [address] 36679 Anion gap [Moles/Vol] 12 mmol/L Normal 10-20 [facility] Comment on above: Performed By: #### 2 4323-8 #### BEVERLEY Poe ([id number]) [facility] ([facility]) [address] [place] [address] 78173 Calcium [Mass/Vol] 8.6 mg/dL Normal 8.6-10.6 [facility] Comment on above: Performed By: #### 2 4323-8 #### BEVERLEY DODD L ([id number]) [facility] ([facility]) [address] [place] [address] 90404 Chloride [Moles/Vol] 99 mmol/L Normal 98-107 [facility] Comment on above: Performed By: #### 2 4323-8 #### BEVERLEY Poe ([id number]) [facility] ([facility]) [address] [place] [address] 98366 CO2 [Moles/Vol] 39 mmol/L High 21-32 [facility] Comment on above: Performed By: #### 2 4323-8 #### BEVERLEY Poe ([id number]) [facility] ([facility]) [address] [place] [address] Creatinine [Mass/Vol] 0.37 mg/dL Low 0.50-1.05 [facility] Comment on above: Performed By: #### 2 4323-8 #### BEVERLEY Poe ([id number]) [facility] ([facility]) [address] [place] [address] GFR/1.73 sq M.predicted MDRD (S/P/Bld) [Vol rate/Area] mL/min/{1.73_m2} Normal >60 [facility] Comment on above: Result Comment: Calc ulations of estimated GFR are performed using the 2020 CKD-EPI Study Refit equation without the race variable for the IDMS-Traceable creatinine methods. https://jasn.asnjournals.org/content//ASN.71514 71026 Performed By: #### 2 4323-8 #### BEVERLEY Poe ([id number]) [facility] ([facility]) [address] [place] [address] Glucose [Mass/Vol] 99 mg/dL Normal 74-99 [facility] Comment on above: Performed By: #### 2 4323-8 #### BEVERLEY Poe ([id number]) [facility] ([facility]) [address] [place] [address] Phosphate [Mass/Vol] 2.8 mg/dL Normal 2.5-4.9 [facility] Comment on above: Result Comment: The performance characteristics of phosphorus testing in heparinized plasma have been validated by the individual laboratory site where testing is performed. Testing on heparinized plasma is not approved by the FDA; however, such approval is not necessary. Performed By: #### 2 4323-8 #### BEVERLEY Poe ([id number]) [facility] ([facility]) [address] [place] [address] Potassium [Moles/Vol] 3.6 mmol/L Normal 3.5-5.3 [facility] Comment on above: Performed By: #### 2 4323-8 #### BEVERLEY Poe ([id number]) [facility] ([facility]) [address] [place] [address] Sodium [Moles/Vol] 146 mmol/L High 136-145 [facility] Comment on above: Performed By: #### 2 4323-8 #### BEVERLEY Poe ([id number]) [facility] ([facility]) [address] [place] [address] Urea nitrogen [Mass/Vol] 11 mg/dL Normal 6-23 [facility] Comment on above: Performed By: #### 2 4323-8 #### BEVERLEY Poe ([id number]) [facility] ([facility]) [address] [place] [address] 87346 CBC panel Auto (Bld)on 09-17 Erythrocyte distribution width (RBC) [Ratio] 13.8 % 11.5 - 14.5 % [facility] Hematocrit (Bld) [Volume fraction] 27.0 % Low 36.0 - 46.0 % [facility] Hemoglobin (Bld) [Mass/Vol] 8.2 g/dL Low 12.0 - 16.0 g/dL [facility] Interpretation and review of laboratory results Abnormal [facility] MCH (RBC) [Entitic mass] 30.6 pg 26.0 - 34.[address] [facility] MCHC (RBC) [Mass/Vol] 30.4 g/dL Low 32.0 - 36.0 g/dL [facility] MCV (RBC) [Entitic vol] 101 fL High 80 - [address] [facility] Nucleated RBC/100 WBC (Bld) [Ratio] 0.0 % [facility] Platelets (Bld) [#/Vol] 88 10*3/uL Low [facility] RBC (Bld) [#/Vol] 2.68 10*6/uL [facility] WBC (Bld) [#/Vol] 3.7 10*3/uL [facility] Erythrocyte distribution width (RBC) [Ratio] 13.8 % Normal 11.5-14.5 [facility] Comment on above: Performed By: #### 1 9123-9 #### BEVERLEY Poe ([id number]) [facility] ([facility]) [address] [place] [address] 79438 Hematocrit (Bld) [Volume fraction] 27.0 % Low 36.0-46.0 [facility] Comment on above: Performed By: #### 1 9123-9 #### BEVERLEY Poe ([id number]) [facility] ([facility]) [address] [place] [address] 87520 Hemoglobin (Bld) [Mass/Vol] 8.2 g/dL Low 12.0-16.0 [facility] Comment on above: Performed By: #### 1 9123-9 #### BEVERLEY Poe ([id number]) [facility] ([facility]) [address] [place] [address] 23206 MCH (RBC) [Entitic mass] 30.6 pg Normal 26.0-34.0 [facility] Comment on above: Performed By: #### 1 9123-9 #### BEVERLEY Poe ([id number]) [facility] ([facility]) [address] [place] [address] 05579 MCHC (RBC) [Mass/Vol] 30.4 g/dL Low 32.0-36.0 [facility] Comment on above: Performed By: #### 1 9123-9 #### BEVERLEY Poe ([id number]) [facility] ([facility]) [address] [place] [address] 31762 MCV (RBC) [Entitic vol] 101 fL High 80-100 [facility] Comment on above: Performed By: #### 1 9123-9 #### BEVERLEY Poe ([id number]) [facility] ([facility]) [address] [place] [address] 66116 Nucleated RBC/100 WBC (Bld) [Ratio] 0.0 /100 WBCs Normal 0.0-0.0 [facility] Comment on above: Performed By: #### 1 9123-9 #### BEVERLEY Poe ([id number]) [facility] ([facility]) [address] [place] [address] 62992 Platelets (Bld) [#/Vol] 88 x10*3/uL Low 150-450 [facility] Comment on above: Performed By: #### 1 9123-9 #### BEVERLEY Poe ([id number]) [facility]) [address] [place] [address] 35175 RBC (Bld) [#/Vol] 2.68 x10*6/uL Low 4.00-5.20 [facility] Comment on above: Performed By: #### 1 9123-9 #### BEVERLEY Poe ([id number]) [facility] ([facility]) [address] [place] [address] 97613 WBC (Bld) [#/Vol] 3.7 x10*3/uL Low 4.4-11.3 [facility] Comment on above: Performed By: #### 1 9123-9 #### BEVERLEY Poe ([id number]) [facility] ([facility]) [address] [place] [address] 36813 Glucose Test strip manual (B ld) [Mass/Vol]on 09-17-2023 Glucose [Mass/Vol] 142 mg/dL High 74 - 99 mg/dL [facility] Interpretation and review of laboratory results Abnormal [facility] Glucose [Mass/Vol] 142 mg/dL High 74-99 [facility] Comment on above: Performed By: #### 2 4323-8 #### BEVERLEY Poe ([id number]) [facility] ([facility]) [address] [place] [address] 58864 Glucose [Mass/Vol] 117 mg/dL High 74 - 99 mg/dL [facility] Interpretation and review of laboratory results Abnormal [facility] Glucose [Mass/Vol] 117 mg/dL High 74-99 [facility] Comment on above: Performed By: #### 2 4323-8 #### BEVERLEY Poe ([id number]) [facility] ([facility]) [address] [place] [address] 27729 Glucose [Mass/Vol] 138 mg/dL High 74 - 99 mg/dL [facility] Interpretation and review of laboratory results Abnormal [facility] Glucose [Mass/Vol] 138 mg/dL High 74-99 [facility] Comment on above: Performed By: #### 2 4323-8 #### BEVERLEY Poe ([id number]) [facility] ([facility]) [address] [place] [address] 90707 Glucose [Mass/Vol] 96 mg/dL 74 - 99 mg/dL [facility] Interpretation and review of laboratory results Normal [facility] Glucose [Mass/Vol] 96 mg/dL Normal 74-99 [facility] Comment on above: Performed By: #### 1 9123-9 #### BEVERLEY Poe ([id number]) [facility] ([facility]) [address] [place] [address] 88733 Magnesiumon 09-17-2023 Magnesium [Mass/Vol] 2.00 mg/dL 1.60 - 2.40 mg/dL [facility] Magnesium [Mass/Vol] 2.00 mg/dL Normal 1.60-2.40 [facility] Comment on above: Performed By: #### 1 9123-9 #### BEVERLEY Poe ([id number]) [facility] ([facility]) [address] [place] [address] 37484 Magnesium [Mass/Vol]on 09-17 Interpretation and review of laboratory results Normal [facility] No Panel Informationon 09-[address] [facility] Renal function 2000 panelon 09-17-2023 Albumin BCP dye [Mass/Vol] 2.9 g/dL Low 3.4 - 5.0 g/dL [facility] Anion gap [Moles/Vol] 11 mmol/L 10 - 2 0 mmol/L [facility] Calcium [Mass/Vol] 8.7 mg/dL 8.6 - 10. 6 mg/dL [facility] Chloride [Moles/Vol] 100 mmol/L 98 - 10 7 mmol/L [facility] CO2 [Moles/Vol] 40 mmol/L Critically high 21 - 32 mmol/L [facility] Creatinine [Mass/Vol] 0.32 mg/dL Low 0.50 - 1.05 mg/dL [facility] GFR/1.73 sq M.predicted MDRD (S/P/Bld) [Vol rate/Area] - PINF [facility] Glucose [Mass/Vol] 95 mg/dL 74 - 99 mg/dL [facility] Interpretation and review of laboratory results Abnormal [facility] Phosphate [Mass/Vol] 3.8 mg/dL 2.5 - 4 .9 mg/dL [facility] Potassium [Moles/Vol] 3.8 mmol/L 3.5 - 5.3 mmol/L [facility] Sodium [Moles/Vol] 147 mmol/L High 136 - 145 mmol/L [facility] Urea nitrogen [Mass/Vol] 10 mg/dL 6 - 23 mg/dL [facility] Albumin BCP dye [Mass/Vol] 2.9 g/dL Low 3.4-5.0 [facility] Comment on above: Performed By: #### 1 9123-9 #### BEVERLEY Poe ([id number]) [facility] ([facility]) [address] [place] [address] 44362 Anion gap [Moles/Vol] 11 mmol/L Normal 10-20 [facility] Comment on above: Performed By: #### 1 9123-9 #### BEVERLEY Poe ([id number]) [facility] ([facility]) [address] [place] [address] Calcium [Mass/Vol] 8.7 mg/dL Normal 8.6-10.6 [facility] Comment on above: Performed By: #### 1 9123-9 #### BEVERLEY Poe ([id number]) [facility] ([facility]) [address] [place] [address] Chloride [Moles/Vol] 100 mmol/L Normal 98-107 [facility] Comment on above: Performed By: #### 1 9123-9 #### BEVERLEY Poe ([id number]) [facility] ([facility]) [address] [place] [address] 15130 CO2 [Moles/Vol] 40 mmol/L Critically high 21-32 [facility] Comment on above: Performed By: #### 1 9123-9 #### BEVERLEY Poe ([id number]) [facility] ([facility]) [address] [place] [address] 25966 Creatinine [Mass/Vol] 0.32 mg/dL Low 0.50-1.05 [facility] Comment on above: Performed By: #### 1 9123-9 #### BEVERLEY Poe ([id number]) [facility] ([facility]) [address] [place] [address] 95860 GFR/1.73 sq M.predicted MDRD (S/P/Bld) [Vol rate/Area] mL/min/{1.73_m2} Normal >60 [facility] Comment on above: Result Comment: Calc ulations of estimated GFR are performed using the 2020 CKD-EPI Study Refit equation without the race variable for the IDMS-Traceable creatinine methods. https://jasn.asnjournals.org/content/early//ASN.91227 01970 Performed By: #### 1 9123-9 #### BEVERLEY Poe ([id number]) [facility] ([facility]) [address] [place] [address] 24944 Glucose [Mass/Vol] 95 mg/dL Normal 74-99 [facility] Comment on above: Performed By: #### 1 9123-9 #### BEVERLEY Poe ([id number]) [facility] ([facility]) [address] [place] [address] 23247 Phosphate [Mass/Vol] 3.8 mg/dL Normal 2.5-4.9 [facility] Comment on above: Result Comment: The performance characteristics of phosphorus testing in heparinized plasma have been validated by the individual laboratory site where testing is performed. Testing on heparinized plasma is not approved by the FDA; however, such approval is not necessary. Performed By: #### 1 9123-9 #### BEVERLEY Poe ([id number]) [facility] ([facility]) [address] [place] [address] 38044 Potassium [Moles/Vol] 3.8 mmol/L Normal 3.5-5.3 [facility] Comment on above: Performed By: #### 1 9123-9 #### BEVERLEY Poe ([id number]) [facility] ([facility]) [address] [place] [address] 61075 Sodium [Moles/Vol] 147 mmol/L High 136-145 [facility] Comment on above: Performed By: #### 1 9123-9 #### BEVERLEY Poe ([id number]) [facility] ([facility]) [address] [place] [address] 54584 Urea nitrogen [Mass/Vol] 10 mg/dL Normal 6-23 [facility] Comment on above: Performed By: #### 1 9123-9 #### BEVERLEY Poe ([id number]) [facility] ([facility]) [address] [place] [address] 40744 Blood type and Indirect anti body screen panel (Bld)on 09-16-2023 ABO group Nom (Bld) O [facility] Blood group antibody screen Ql Negative [facility] D Ag Ql (Bld) Positive [facility] CBC panel Auto (Bld)on 09-16 Erythrocyte distribution width (RBC) [Ratio] 13.9 % 11.5 - 14.5 % [facility] Hematocrit (Bld) [Volume fraction] 29.3 % Low 36.0 - 46.0 % [facility] Hemoglobin (Bld) [Mass/Vol] 8.5 g/dL Low 12.0 - 16.0 g/dL [facility] Interpretation and review of laboratory results Abnormal [facility] MCH (RBC) [Entitic mass] 29.9 pg 26.0 - 34.[address] [facility] MCHC (RBC) [Mass/Vol] 29.0 g/dL Low 32.0 - 36.0 g/dL [facility] MCV (RBC) [Entitic vol] 103 fL High 80 - [address] [facility] Nucleated RBC/100 WBC (Bld) [Ratio] 0.0 % [facility] Platelets (Bld) [#/Vol] 93 10*3/uL Low [facility] RBC (Bld) [#/Vol] 2.84 10*6/uL [facility] WBC (Bld) [#/Vol] 3.4 10*3/uL [facility] Erythrocyte distribution width (RBC) [Ratio] 13.9 % Normal 11.5-14.5 [facility] Comment on above: Performed By: #### 1 9123-9 #### BEVERLEY Poe ([id number]) [facility] ([facility]) [address] [place] [address] 35422 Hematocrit (Bld) [Volume fraction] 29.3 % Low 36.0-46.0 [facility] Comment on above: Performed By: #### 1 9123-9 #### BEVERLEY Poe ([id number]) [facility] ([facility]) [address] [place] [address] 01968 Hemoglobin (Bld) [Mass/Vol] 8.5 g/dL Low 12.0-16.0 [facility] Comment on above: Performed By: #### 1 9123-9 #### BEVERLEY Poe ([id number]) [facility] ([facility]) [address] [place] [address] 70606 MCH (RBC) [Entitic mass] 29.9 pg Normal 26.0-34.0 [facility] Comment on above: Performed By: #### 1 9123-9 #### BVEERLEY Poe ([id number]) [facility] ([facility]) [address] [place] [address] 73319 MCHC (RBC) [Mass/Vol] 29.0 g/dL Low 32.0-36.0 [facility] Comment on above: Performed By: #### 1 9123-9 #### BEVERLEY Poe ([id number]) [facility] ([facility]) [address] [place] [address] 68266 MCV (RBC) [Entitic vol] 103 fL High 80-100 [facility] Comment on above: Performed By: #### 1 9123-9 #### BEVERLEY Poe ([id number]) [facility] ([facility]) [address] [place] [address] 50779 Nucleated RBC/100 WBC (Bld) [Ratio] 0.0 /100 WBCs Normal 0.0-0.0 [facility] Comment on above: Performed By: #### 1 9123-9 #### BEVERLEY Poe ([id number]) [facility] ([facility]) [address] [place] [address] 76541 Platelets (Bld) [#/Vol] 93 x10*3/uL Low 150-450 [facility] Comment on above: Performed By: #### 1 9123-9 #### BEVERLEY Poe ([id number]) [facility] ([facility]) [address] [place] [address] 61291 RBC (Bld) [#/Vol] 2.84 x10*6/uL Low 4.00-5.20 [facility] Comment on above: Performed By: #### 1 9123-9 #### BEVERLEY Poe ([id number]) [facility] ([facility]) [address] [place] [address] 19198 WBC (Bld) [#/Vol] 3.4 x10*3/uL Low 4.4-11.3 [facility] Comment on above: Performed By: #### 1 9123-9 #### BEVERLEY Poe ([id number]) [facility] ([facility]) [address] [place] [address] 47247 Carcinoembryonic Agon 2022 Carcinoembryonic Ag [Mass/Vol] ng/mL Normal [facility] Comment on above: Order Comment: REF V ALUES NONSMOKERS 0-2.5 SMOKERS 0-5.0CEA testing is performed by chemiluminescent immunoassay using the Siemens Pumodo. Values obtained with different analytic methods cannot [...] By: #### 1 9123-9 #### BEVERLEY Poe ([id number]) [facility] ([facility]) [address] [place] [address] 92021 Carcinoembryonic Ag [Mass/Vo l]on 09-16-2023 [facility] Carcinoembryonic Antigenon 1 11-16-2022 Carcinoembryonic Ag [Mass/Vol] ug/L ug/L [facility] Glucose Test strip manual (B ld) [Mass/Vol]on 09-16-2023 Glucose [Mass/Vol] 96 mg/dL 74 - 99 mg/dL [facility] Interpretation and review of laboratory results Normal [facility] Glucose [Mass/Vol] 96 mg/dL Normal 74-99 [facility] Comment on above: Performed By: #### 1 9123-9 #### BEVERLEY Poe ([id number]) [facility] ([facility]) [address] [place] [address] 69704 Glucose [Mass/Vol] 94 mg/dL 74 - 99 mg/dL [facility] Interpretation and review of laboratory results Normal [facility] Glucose [Mass/Vol] 94 mg/dL Normal 74-99 [facility] Comment on above: Performed By: #### 1 9123-9 #### BEVERLEY Poe ([id number]) [facility] ([facility]) [address] [place] [address] 85367 Glucose [Mass/Vol] 98 mg/dL 74 - 99 mg/dL [facility] Interpretation and review of laboratory results Normal [facility] Glucose [Mass/Vol] 98 mg/dL Normal 74-99 [facility] Comment on above: Performed By: #### 2 341-6 #### BEVERLEY Poe ([id number]) [facility] ([facility]) [address] [place] [address] 19727 Glucose [Mass/Vol] 92 mg/dL 74 - 99 mg/dL [facility] Interpretation and review of laboratory results Normal [facility] Glucose [Mass/Vol] 92 mg/dL Normal 74-99 [facility] Comment on above: Performed By: #### 2 341-6 #### BEVERLEY Poe ([id number]) [facility] ([facility]) [address] [place] [address] 95822 Glucose [Mass/Vol] 88 mg/dL 74 - 99 mg/dL [facility] Interpretation and review of laboratory results Normal [facility] Glucose [Mass/Vol] 88 mg/dL Normal 74-99 [facility] Comment on above: Performed By: #### 2 341-6 #### BEVERLEY Poe ([id number]) [facility] ([facility]) [address] [place] [address] 60043 Magnesiumon 09-16-2023 Magnesium [Mass/Vol] 2.04 mg/dL 1.60 - 2.40 mg/dL [facility] Magnesium [Mass/Vol] 2.04 mg/dL Normal 1.60-2.40 [facility] Comment on above: Performed By: #### 1 9123-9 #### BEVERLEY Poe ([id number]) [facility] ([facility]) [address] [place] [address] 25628 Magnesium [Mass/Vol]on 09-16 Interpretation and review of laboratory results Normal [facility] No Panel Informationon 09-[address] [facility] Renal function 2000 panelon 09-16-2023 Albumin BCP dye [Mass/Vol] 3.0 g/dL Low 3.4 - 5.0 g/dL [facility] Anion gap [Moles/Vol] 10 mmol/L 10 - 2 0 mmol/L [facility] Calcium [Mass/Vol] 8.8 mg/dL 8.6 - 10. 6 mg/dL [facility] Chloride [Moles/Vol] 99 mmol/L 98 - 10 7 mmol/L [facility] CO2 [Moles/Vol] 40 mmol/L Critically high 21 - 32 mmol/L [facility] Creatinine [Mass/Vol] 0.40 mg/dL Low 0.50 - 1.05 mg/dL [facility] GFR/1.73 sq M.predicted MDRD (S/P/Bld) [Vol rate/Area] - PINF [facility] Glucose [Mass/Vol] 88 mg/dL 74 - 99 mg/dL [facility] Interpretation and review of laboratory results Abnormal [facility] Phosphate [Mass/Vol] 3.1 mg/dL 2.5 - 4 .9 mg/dL [facility] Potassium [Moles/Vol] 3.7 mmol/L 3.5 - 5.3 mmol/L [facility] Sodium [Moles/Vol] 145 mmol/L 136 - 145 mmol/L [facility] Urea nitrogen [Mass/Vol] 12 mg/dL 6 - 23 mg/dL [facility] Albumin BCP dye [Mass/Vol] 3.0 g/dL Low 3.4-5.0 [facility] Comment on above: Performed By: #### 1 9123-9 #### BEVERLEY Poe ([id number]) [facility] ([facility]) [address] [place] [address] 23022 Anion gap [Moles/Vol] 10 mmol/L Normal 10-20 [facility] Comment on above: Performed By: #### 1 9123-9 #### BEVERLEY Poe ([id number]) [facility] ([facility]) [address] [place] [address] 02384 Calcium [Mass/Vol] 8.8 mg/dL Normal 8.6-10.6 [facility] Comment on above: Performed By: #### 1 9123-9 #### BEVERLEY Poe ([id number]) [facility] ([facility]) [address] [place] [address] Chloride [Moles/Vol] 99 mmol/L Normal 98-107 [facility] Comment on above: Performed By: #### 1 9123-9 #### BEVERLEY DODD L ([id number]) [facility] ([facility]) [address] [place] [address] CO2 [Moles/Vol] 40 mmol/L Critically high 21-32 [facility] Comment on above: Performed By: #### 1 9123-9 #### BEVERLEY Poe ([id number]) [facility] ([facility]) [address] [place] [address] Creatinine [Mass/Vol] 0.40 mg/dL Low 0.50-1.05 [facility] Comment on above: Performed By: #### 1 9123-9 #### BEVERLEY Poe ([id number]) [facility] ([facility]) [address] [place] [address] GFR/1.73 sq M.predicted MDRD (S/P/Bld) [Vol rate/Area] mL/min/{1.73_m2} Normal >60 [facility] Comment on above: Result Comment: Calc ulations of estimated GFR are performed using the 2020 CKD-EPI Study Refit equation without the race variable for the IDMS-Traceable creatinine methods. https://jasn.asnjournals.org/content//ASN.29054 50246 Performed By: #### 1 9123-9 #### BEVERLEY Poe ([id number]) [facility] ([facility]) [address] [place] [address] Glucose [Mass/Vol] 88 mg/dL Normal 74-99 [facility] Comment on above: Performed By: #### 1 9123-9 #### BEVERLEY Poe ([id number]) [facility] ([facility]) [address] [place] [address] Phosphate [Mass/Vol] 3.1 mg/dL Normal 2.5-4.9 [facility] Comment on above: Result Comment: The performance characteristics of phosphorus testing in heparinized plasma have been validated by the individual laboratory site where testing is performed. Testing on heparinized plasma is not approved by the FDA; however, such approval is not necessary. Performed By: #### 1 9123-9 #### BEVERLEY Poe ([id number]) [facility] ([facility]) [address] [place] [address] 45471 Potassium [Moles/Vol] 3.7 mmol/L Normal 3.5-5.3 [facility] Comment on above: Performed By: #### 1 9123-9 #### BEVERLEY Poe ([id number]) [facility] ([facility]) [address] [place] [address] 64947 Sodium [Moles/Vol] 145 mmol/L Normal 136-145 [facility] Comment on above: Performed By: #### 1 9123-9 #### BEVERLEY Poe ([id number]) [facility] ([facility]) [address] [place] [address] 36236 Urea nitrogen [Mass/Vol] 12 mg/dL Normal 6-23 [facility] Comment on above: Performed By: #### 1 9123-9 #### BEVERLEY Poe ([id number]) [facility] ([facility]) [address] [place] [address] 40651 Bacteria identifiedon 2022 Bacteria identified Cx Nom (Bld) Test: Blood Culture Specimen Source: Peripheral Venipuncture Specimen Type: Blood culture Specimen Date: 09/15/2023 9:24 PM Result Date: 09/19/2023 10:01 PM Result Status: Final result Abnormal: No Resulting Lab: [facility] [address] [place] [address] 83886 CULTURE No growth at 4 days - FINAL REPORT [facility] Comment on above: Performed By: #### 6 00-7 #### BEVERLEY Poe ([id number]) [facility] ([facility]) [address] [place] [address] 16332 Basophil percentageOrdered B y: Calvin Hester on 09-15-2023 Lactate [Moles/Vol] 0.6 mmol/L 0.4-2.0 [facility] Basophil percentage 10-25 SEEN /hpf 0-5 [facility] Bilirubin Test strip Ql (U)O rdered By: Calvin Hester on 09-15-2023 Bilirubin Ql (U) Negative Negative [facility] Blood type and Indirect anti body screen panel (Bld)on 09-15-2023 ABO group Nom (Bld) O Normal [facility] Comment on above: Performed By: #### 3 4532-2 #### BEVERLEY Poe ([id number]) [facility] ([facility]) [address] [place], [place] [id number] Blood group antibody screen Ql Negative [facility] Comment on above: Performed By: #### 3 4532-2 #### BEVERLEY Poe ([id number]) [facility] ([facility]) [address] [place], [place] [id number] D Ag Ql (Bld) Positive [facility] Comment on above: Result Comment: 2nd ABO test required. Order and Collect VERAB Performed By: #### 3 4532-2 #### BEVERLEY Poe ([id number]) [facility] ([facility]) [address] [place] [address] 70602 CBC W Auto Differential pane l (Bld)on 09-15-2023 Basophils (Bld) [#/Vol] 0.01 10*3/uL [facility] Basophils/100 WBC (Bld) 0.3 % 0.0 - 2.0 % [facility] Eosinophils (Bld) [#/Vol] 0.06 10*3/uL [facility] Eosinophils/100 WBC (Bld) 1.7 % 0.0 - 6.0 % [facility] Erythrocyte distribution width (RBC) [Ratio] 13.9 % 11.5 - 14.5 % [facility] Hematocrit (Bld) [Volume fraction] 27.8 % Low 36.0 - 46.0 % [facility] Hemoglobin (Bld) [Mass/Vol] 7.9 g/dL Low 12.0 - 16.0 g/dL [facility] Immature granulocytes (Bld) [#/Vol] 0.02 10*3/uL [facility] Immature granulocytes/100 WBC (Bld) 0.6 % 0.0 - 0.9 % [facility] Interpretation and review of laboratory results Abnormal [facility] Lymphocytes (Bld) [#/Vol] 0.67 10*3/uL Low [facility] Lymphocytes/100 WBC (Bld) 19.2 % 13.0 - 44.0 % [facility] MCH (RBC) [Entitic mass] 29.8 pg 26.0 - 34.[address] [facility] MCHC (RBC) [Mass/Vol] 28.4 g/dL Low 32.0 - 36.0 g/dL [facility] MCV (RBC) [Entitic vol] 105 fL High 80 - [address] [facility] Monocytes (Bld) [#/Vol] 0.23 10*3/uL [facility] Monocytes/100 WBC (Bld) 6.6 % 2.0 - 10.0 % [facility] Neutrophils (Bld) [#/Vol] 2.50 10*3/uL [facility] Neutrophils/100 WBC (Bld) 71.6 % 40.0 - 80.0 % [facility] Nucleated RBC/100 WBC (Bld) [Ratio] 0.0 % [facility] Platelets (Bld) [#/Vol] 123 10*3/uL Low [facility] RBC (Bld) [#/Vol] 2.65 10*6/uL [facility] WBC (Bld) [#/Vol] 3.5 10*3/uL [facility] Basophils (Bld) [#/Vol] 0.01 x10*3/uL Normal 0.00-0.10 [facility] Comment on above: Performed By: #### 5 7021-8 #### BEVERLEY Poe ([id number]) [facility] ([facility]) [address] [place] [address] 27220 Basophils/100 WBC (Bld) 0.3 % Normal 0.0-2.0 [facility] Comment on above: Performed By: #### 5 7021-8 #### BEVERLEY Poe ([id number]) [facility] ([facility]) [address] [place] [address] 13221 Eosinophils (Bld) [#/Vol] 0.06 x10*3/uL Normal 0.00-0.40 [facility] Comment on above: Performed By: #### 5 7021-8 #### BEVERLEY Poe ([id number]) [facility] ([facility]) [address] [place] [address] 88487 Eosinophils/100 WBC (Bld) 1.7 % Normal 0.0-6.0 [facility] Comment on above: Performed By: #### 5 7021-8 #### BEVERLEY Poe ([id number]) [facility] ([facility]) [address] [place] [address] 08168 Erythrocyte distribution width (RBC) [Ratio] 13.9 % Normal 11.5-14.5 [facility] Comment on above: Performed By: #### 5 7021-8 #### BEVERLEY Poe ([id number]) [facility] ([facility]) [address] [place] [address] 29143 Hematocrit (Bld) [Volume fraction] 27.8 % Low 36.0-46.0 [facility] Comment on above: Performed By: #### 5 7021-8 #### BEVERLEY Poe ([id number]) [facility] ([facility]) [address] [place] [address] 68503 Hemoglobin (Bld) [Mass/Vol] 7.9 g/dL Low 12.0-16.0 [facility] Comment on above: Performed By: #### 5 7021-8 #### BEVERLEY Poe ([id number]) [facility] ([facility]) [address] [place] [address] 38442 Immature granulocytes (Bld) [#/Vol] 0.02 x10*3/uL Normal 0.00-0.50 [facility] Comment on above: Performed By: #### 5 7021-8 #### BEVERLEY Poe ([id number]) [facility] ([facility]) [address] [place] [address] 71423 Immature granulocytes/100 WBC (Bld) 0.6 % Normal 0.0-0.9 [facility] Comment on above: Result Comment: Sharda ture Granulocyte Count (IG) includes promyelocytes, myelocytes and metamyelocytes but does not include bands. Percent differential counts (%) should be interpreted in the context of the absolute cell counts (cells/UL). Performed By: #### 5 7021-8 #### BEVERLEY Poe ([id number]) [facility] ([facility]) [address] [place] [address] 01753 Lymphocytes (Bld) [#/Vol] 0.67 x10*3/uL Low 0.80-3.00 [facility] Comment on above: Performed By: #### 5 7021-8 #### BEVERLEY Poe ([id number]) [facility] ([facility]) [address] [place] [address] 78258 Lymphocytes/100 WBC (Bld) 19.2 % Normal 13.0-44.0 [facility] Comment on above: Performed By: #### 5 7021-8 #### BEVERLEY Poe ([id number]) [facility] ([facility]) [address] [place] [address] 79439 MCH (RBC) [Entitic mass] 29.8 pg Normal 26.0-34.0 [facility] Comment on above: Performed By: #### 5 7021-8 #### BEVERLEY Poe ([id number]) [facility] ([facility]) [address] [place] [address] 17331 MCHC (RBC) [Mass/Vol] 28.4 g/dL Low 32.0-36.0 [facility] Comment on above: Performed By: #### 5 7021-8 #### BEVERLEY Poe ([id number]) [facility] ([facility]) [address] [place] [address] MCV (RBC) [Entitic vol] 105 fL High 80-100 [facility] Comment on above: Performed By: #### 5 7021-8 #### BEVERLEY Poe ([id number]) [facility] ([facility]) [address] [place] [address] 88787 Monocytes (Bld) [#/Vol] 0.23 x10*3/uL Normal 0.05-0.80 [facility] Comment on above: Performed By: #### 5 7021-8 #### BEVERLEY Poe ([id number]) [facility] ([facility]) [address] [place] [address] 29999 Monocytes/100 WBC (Bld) 6.6 % Normal 2.0-10.0 [facility] Comment on above: Performed By: #### 5 7021-8 #### BEVERLEY Poe ([id number]) [facility] ([facility]) [address] [place] [address] 90795 Neutrophils (Bld) [#/Vol] 2.50 x10*3/uL Normal 1.60-5.50 [facility] Comment on above: Result Comment: Perc ent differential counts (%) should be interpreted in the context of the absolute cell counts (cells/uL). Performed By: #### 5 7021-8 #### BEVERLEY Poe ([id number]) [facility] ([facility]) [address] [place] [address] 91342 Neutrophils/100 WBC (Bld) 71.6 % Normal 40.0-80.0 [facility] Comment on above: Performed By: #### 5 7021-8 #### BEVERLEY Poe ([id number]) [facility] ([facility]) [address] [place] [address] Nucleated RBC/100 WBC (Bld) [Ratio] 0.0 /100 WBCs Normal 0.0-0.0 [facility] Comment on above: Performed By: #### 5 7021-8 #### BEVERLEY Poe ([id number]) [facility]) [address] [place] [address] Platelets (Bld) [#/Vol] 123 x10*3/uL Low 150-450 [facility] Comment on above: Performed By: #### 5 7021-8 #### BEVERLEY Poe ([id number]) [facility]) [address] [place] [address] RBC (Bld) [#/Vol] 2.65 x10*6/uL Low 4.00-5.20 [facility] Comment on above: Performed By: #### 5 7021-8 #### BEVERLEY Poe ([id number]) [facility] ([facility]) [address] [place] [address] WBC (Bld) [#/Vol] 3.5 x10*3/uL Low 4.4-11.3 [facility] Comment on above: Performed By: #### 5 7021-8 #### BEVERLEY Poe ([id number]) [facility] ([facility]) [address] [place] [address] Comprehensive metabolic 2000 panelon 09-15-2023 Albumin BCP dye [Mass/Vol] 3.0 g/dL Low 3.4 - 5.0 g/dL [facility] ALP [Catalytic activity/Vol] 47 U/L 33 - 136 U/L [facility] ALT With P-5'-P [Catalytic activity/Vol] 10 U/L 7 - 45 U/L [facility] Anion gap [Moles/Vol] 10 mmol/L 10 - 2 0 mmol/L [facility] AST With P-5'-P [Catalytic activity/Vol] 10 U/L 9 - 39 U/L [facility] Bilirubin [Mass/Vol] 0.6 mg/dL 0.0 - 1 .2 mg/dL [facility] Calcium [Mass/Vol] 8.8 mg/dL 8.6 - 10. 6 mg/dL [facility] Chloride [Moles/Vol] 100 mmol/L 98 - 10 7 mmol/L [facility] CO2 [Moles/Vol] 39 mmol/L High 21 - 32 mmol/L [facility] Creatinine [Mass/Vol] 0.45 mg/dL Low 0.50 - 1.05 mg/dL [facility] GFR/1.73 sq M.predicted MDRD (S/P/Bld) [Vol rate/Area] - PINF [facility] Glucose [Mass/Vol] 88 mg/dL 74 - 99 mg/dL [facility] Interpretation and review of laboratory results Abnormal [facility] Potassium [Moles/Vol] 4.2 mmol/L 3.5 - 5.3 mmol/L [facility] Protein [Mass/Vol] 6.1 g/dL Low 6.4 - 8.2 g/dL [facility] Sodium [Moles/Vol] 145 mmol/L 136 - 145 mmol/L [facility] Urea nitrogen [Mass/Vol] 13 mg/dL 6 - 23 mg/dL [facility] Albumin BCP dye [Mass/Vol] 3.0 g/dL Low 3.4-5.0 [facility] Comment on above: Performed By: #### 2 4323-8 #### BEVERLEY Poe ([id number]) [facility] ([facility]) [address] [place] [address] 89610 ALP [Catalytic activity/Vol] 47 U/L Normal 33-136 [facility] Comment on above: Performed By: #### 2 4323-8 #### BEVERLEY Poe ([id number]) [facility] ([facility]) [address] [place] [address] 27735 ALT With P-5'-P [Catalytic activity/Vol] 10 U/L Normal 7-45 [facility] Comment on above: Result Comment: Ирина ents treated with Sulfasalazine may generate falsely decreased results for ALT. Performed By: #### 2 4323-8 #### BEVERLEY Poe ([id number]) [facility] ([facility]) [address] [place] [address] Anion gap [Moles/Vol] 10 mmol/L Normal 10-20 [facility] Comment on above: Performed By: #### 2 4323-8 #### BEVERLEY Poe ([id number]) [facility] ([facility]) [address] [place] [address] AST With P-5'-P [Catalytic activity/Vol] 10 U/L Normal 9-39 [facility] Comment on above: Performed By: #### 2 4323-8 #### BEVERLEY Poe ([id number]) [facility] ([facility]) [address] [place] [address] 57142 Bilirubin [Mass/Vol] 0.6 mg/dL Normal 0.0-1.2 [facility] Comment on above: Performed By: #### 2 4323-8 #### BEVERLEY Poe ([id number]) [facility] ([facility]) [address] [place] [address] 65626 Calcium [Mass/Vol] 8.8 mg/dL Normal 8.6-10.6 [facility] Comment on above: Performed By: #### 2 4323-8 #### BEVERLEY Poe ([id number]) [facility] ([facility]) [address] [place] [address] 54710 Chloride [Moles/Vol] 100 mmol/L Normal 98-107 [facility] Comment on above: Performed By: #### 2 4323-8 #### BEVERLEY DODD L ([id number]) [facility] ([facility]) [address] [place] [address] 23560 CO2 [Moles/Vol] 39 mmol/L High 21-32 [facility] Comment on above: Performed By: #### 2 4323-8 #### BEVERLEY DODD L ([id number]) [facility] ([facility]) [address] [place] [address] 40919 Creatinine [Mass/Vol] 0.45 mg/dL Low 0.50-1.05 [facility] Comment on above: Performed By: #### 2 4323-8 #### BEVERLEY DODD L ([id number]) [facility] ([facility]) [address] [place] [address] GFR/1.73 sq M.predicted MDRD (S/P/Bld) [Vol rate/Area] mL/min/{1.73_m2} Normal >60 [facility] Comment on above: Result Comment: Calc ulations of estimated GFR are performed using the 2020 CKD-EPI Study Refit equation without the race variable for the IDMS-Traceable creatinine methods. https://jasn.asnjournals.org/content/early//ASN.30931 56879 Performed By: #### 2 4323-8 #### BEVERLEY Poe ([id number]) [facility] ([facility]) [address] [place] [address] 28099 Glucose [Mass/Vol] 88 mg/dL Normal 74-99 [facility] Comment on above: Performed By: #### 2 4323-8 #### BEVERLEY DODD L ([id number]) [facility] ([facility]) [address] [place] [address] 49380 Potassium [Moles/Vol] 4.2 mmol/L Normal 3.5-5.3 [facility] Comment on above: Performed By: #### 2 4323-8 #### BEVERLEY DODD L ([id number]) [facility] ([facility]) [address] [place] [address] Protein [Mass/Vol] 6.1 g/dL Low 6.4-8.2 [facility] Comment on above: Performed By: #### 2 4323-8 #### BEVERLEY DODD L ([id number]) [facility] ([facility]) [address] [place] [address] 08721 Sodium [Moles/Vol] 145 mmol/L Normal 136-145 [facility] Comment on above: Performed By: #### 2 4323-8 #### BEVERLEY DODD L ([id number]) [facility] ([facility]) [address] [place] [address] 68028 Urea nitrogen [Mass/Vol] 13 mg/dL Normal 6-23 [facility] Comment on above: Performed By: #### 2 4323-8 #### BEVERLEY Poe ([id number]) [facility] ([facility]) [address] [place] [address] 10045 Glucose Glucometer (BldC) [M ass/Vol]Ordered By: Calvin Hester on 09-15-2023 Glucose [Mass/Vol] 95 mg/dL 74-106 [facility] Comment on above: MANAGEMENT OF PATIEN T CARE PER NURSING PROTOCOL Ketones Test strip Ql (U)Ord ered By: Calvin Hester on 09-15-2023 Ketones Ql (U) Negative Negative [facility] Laboratory - Microbiology an d Antimicrobial susceptibilityOrdered By: Calvin Hester on 09-15-2023 Bacteria identified Cx Nom (Bld) No growth in 5 days. [facility] Magnesiumon 09-15-2023 Magnesium [Mass/Vol] 2.13 mg/dL 1.60 - 2.40 mg/dL [facility] Magnesium [Mass/Vol] 2.13 mg/dL Normal 1.60-2.40 [facility] Comment on above: Performed By: #### 1 9123-9 #### BEVERLEY Poe ([id number]) [facility] ([facility]) [address] [place] [address] 90994 Magnesium [Mass/Vol]on 09-15 Interpretation and review of laboratory results Normal [facility] Mucus LM Ql (Urine sed)Order ed By: Calvin Hester on 09-15-2023 Mucus Ql (Urine sed) 0 SEEN /hpf [facility] Nitrite Test strip Ql (U)Ord ered By: Calvin Hester on 09-15-2023 Nitrite Ql (U) Positive Negative [facility] No Panel Informationon 09-[address] [facility] PT and aPTT panel Coag (PPP) on 09-15-2023 aPTT Coag (PPP) [Time] 24 s Low Un [facility] INR Coag (PPP) [Relative time] 1.0 {INR} 0.9 - 1.[address] [facility] Interpretation and review of laboratory results Abnormal [facility] PT Coag (PPP) [Time] 11.6 s [facility] aPTT Coag (PPP) [Time] 24 s Low 27-38 Un [facility] Comment on above: Order Comment: The A PTT is no longer used for monitoring Unfractionated Heparin Therapy. For monitoring Heparin Therapy, use the Heparin Assay. Performed By: #### 3 4529-8 #### BEVERLEY Poe ([id number]) [facility] ([facility]) [address] [place] [address] 59158 INR Coag (PPP) [Relative time] 1.0 Normal 0.9-1.1 [facility] Comment on above: Order Comment: The A PTT is no longer used for monitoring Unfractionated Heparin Therapy. For monitoring Heparin Therapy, use the Heparin Assay. Performed By: #### 3 4529-8 #### BEVERLEY Poe ([id number]) [facility] ([facility]) [address] [place] [id number] PT Coag (PPP) [Time] 11.6 s Normal 9.8-12.8 [facility] Comment on above: Order Comment: The A PTT is no longer used for monitoring Unfractionated Heparin Therapy. For monitoring Heparin Therapy, use the Heparin Assay. Performed By: #### [id number] #### BEVERLEY Poe ([id number]) [facility] ([facility]) [address] [place] [id number] Protein Test strip Ql (U)Ord ered By: Calvin Hester on 09-15-2023 Protein Ql (U) 30 mg/dl Negative [facility] Squamous epithelial cells de tection in urine sediment by light microscopyOrdered By: Calvin Hester on 09-15-2023 Epithelial cells.squamous LM Ql (Urine sed) 0 SEEN /hpf 5-10 [facility] Urine blood detectionOrdered By: Calvin Hester on 09-15-2023 RBC Ql (U) 50 /ul Negative [facility] RBC Ql (U) 0-5 SEEN /hpf 0-5 [facility] Urine clarityOrdered By: Farooq Hester on 09-15-2023 Clarity (U) Clear Clear [facility] Urine color determinationOrd ered By: Calvin Hester on 09-15-2023 Color (U) Yellow Yellow [facility] Urine glucose detectionOrder ed By: Calvin Hester on 09-15-2023 Glucose Ql (U) Normal mg/dl Normal [facility] Urine leukocyte esterase det ection by dipstickOrdered By: Calvin Hester on 09-15-2023 Leukocyte esterase Test strip Ql (U) 100 /ul Negative [facility] Urine pHOrdered By: Calvin solorzano on 09-15-2023 pH (U) 6.0 [pH] 5.0 - 8.0 [facility] Urine sediment bacteria coun t by microscopy (number/high power field)Ordered By: Calvin Hester on 09-15-2023 Bacteria LM.HPF (Urine sed) [#/Area] 1 /[HPF] None Seen [facility] Urine specific gravity measu rementOrdered By: Calvin Hester on 09-15-2023 Specific gravity (U) [Rel density] 1.010 1.002-1.030 [facility] Urobilinogen Auto test strip Ql (U)Ordered By: Calvin Hester on 09-15-2023 Urobilinogen Ql (U) 1 mg/dl Normal [facility] Absolute lymphocyte countOrd ered By: Calvin Hester on 09-14-2023 Lymphocytes Auto (Unsp spec) [#/Vol] 0.70 10*3/uL 0.83-4.51 [facility] Basophil percentageOrdered B y: Calvin Hester on 09-14-2023 Basophils/100 WBC (Bld) 0.3 % 0-1 [facility] Bilirubin [Mass/Vol] 0.40 mg/dL 0.20-1.00 [facility] Comment on above: For patients on eltr ombopag therapy, use of [place] TBIL is not recommended. Chloride [Moles/Vol] 101 mmol/L 98-107 [facility] Eosinophils/100 WBC (Bld) 0.8 % 0-5 [facility] Glucose [Mass/Vol] 134 mg/dL 74-106 [facility] Comment on above: Fasting Glucose resu lt greater than or equal to 126 mg/dL suggests DIABETES MELLITUS per A.D.A. criteria. Neutrophils (Bld) [#/Vol] 2.5 10*3/uL 2.0-7.7 [facility] Neutrophils/100 WBC (Bld) 70.5 % 47-70 [facility] Potassium [Moles/Vol] 4.0 mmol/L 3.5-5.1 [facility] Protein [Mass/Vol] 6.9 g/dL 6.4-8.2 [facility] Sodium [Moles/Vol] 144 mmol/L 136-145 [facility] WBC (Bld) [#/Vol] 3.6 10*3/uL 4.4-11.0 [facility] Blood erythrocytes count (nu mber/volume)Ordered By: Calvin Hester on 09-14-2023 RBC (Bld) [#/Vol] 2.80 10*6/uL 4.2-5.4 [facility] Blood hemoglobin measurement (mass/volume)Ordered By: Calvin Hester on 09-14-2023 Hemoglobin (Bld) [Mass/Vol] 8.3 g/dL 12.0-15.0 [facility] Blood lymphocytes/100 leukoc ytesOrdered By: Calvin Hester on 09-14-2023 Lymphocytes/100 WBC (Bld) 19.5 % 19-41 [facility] Blood monocytes/100 leukocyt esOrdered By: Calvin Hester on 09-14-2023 Monocytes/100 WBC (Bld) 7.8 % 0-10 [facility] Blood platelet mean volumeOr dered By: Calvin Hester on 09-14-2023 Platelet mean volume (Bld) [Entitic vol] 8.8 fL 6.2-12.0 [facility] Determination of erythrocyte mean corpuscular volume (MCV)Ordered By: Calvin Hester on 09-14-2023 MCV (RBC) [Entitic vol] 102.9 fL 81-99 [facility] Direct bilirubinOrdered By: Calvin Hester on 09-14-2023 Bilirubin.direct [Mass/Vol] 0.09 mg/dL 0.00-0.30 [facility] Hematocrit Auto (Bld) [Volum e fraction]Ordered By: Calvin Hester on 09-14-2023 Hematocrit (Bld) [Volume fraction] 28.8 % 37-47 [facility] INR in Blood by Coagulation assayOrdered By: Calvin Hester on 09-14-2023 INR Coag (Bld) [Relative time] 1.0 {INR} [facility] Laboratory - Chemistry and C hemistry - challengeOrdered By: Calvin Hester on 09-14-2023 ALP [Catalytic activity/Vol] 66 U/L 45-117 [facility] ALT [Catalytic activity/Vol] 18 U/L 13-56 [facility] CO2 [Moles/Vol] 41.0 mmol/L 21.0-32.0 [facility] Globulin (S) [Mass/Vol] 4.4 g/dL 2.2-4.2 [facility] Lipase [Catalytic activity/Vol] 24 U/L 13-75 [facility] Comment on above: Please note:LIPASE r evised reference range effective 23. New Lipase methodology. Expected to produce lower values than the previous assay method. NEW Reference Range: 13 - 75 U/L Urea nitrogen/Creatinine [Mass ratio] 25.5 mg/mg 10-20 [facility] Laboratory - CoagulationOrde red By: Calvin Hester on 09-14-2023 aPTT Coag (Bld) [Time] 29.8 s 24.1-36.2 [facility] PT Coag (PPP) [Time] 13.0 s 11.7-14.9 [facility] Laboratory - Hematology and Cell countsOrdered By: Calvin Hester on 09-14-2023 Erythrocyte distribution width (RBC) [Entitic vol] 53.0 fL 35.1-43.9 [facility] Erythrocyte distribution width (RBC) [Ratio] 14.1 % 11.6-14.6 [facility] Immature granulocytes/100 WBC (Bld) 1.100 % 0.0-0.9 [facility] Comment on above: IG% - Immature Granu locytes (promyelocytes, myelocytes and metamyelocytes) > 1% indicates that a LEFT SHIFT is Present. MCH (RBC) [Entitic mass] 29.6 pg 27.0-32.0 [facility] Nucleated RBC/100 WBC (Bld) [Ratio] 0 % 0-[address] [facility] [address] ([facility]BC) [Mass/Vol]Or dered By: Calvin Hester on 09-14-2023 MCHC (RBC) [Mass/Vol] 28.8 g/dL 32-36 [facility] No Panel InformationOrdered By: Calvin Hester on 09-14-2023 Estimated Creatinine Clearance Calc 54.98 ml/min [facility] Estimated GFR (MDRD) Amer 87 mL/min >60 [facility] Comment on above: GFR Calc Estimated GFR (MDRD) Non-Af Amer 72 mL/min >60 [facility] Comment on above: Non- GFR Calc Platelets bldOrdered By: Farooq Hester on 09-14-2023 Platelets (Bld) [#/Vol] 109 10*3/uL 150-450 [facility] Serum or plasma albumin celina [...] on 09-14-2023 Creatinine [Mass/Vol] 0.82 mg/dL 0.55-1.02 [facility] Comment on above: The validity of the calculated GFR & GFRAA in patients over 70 years has not been determined. Clinical correlation is essential. Serum or plasma urea nitroge n measurement (mass/volume)Ordered By: Calvin Hester on 09-14-2023 Urea nitrogen [Mass/Vol] 21 mg/dL 7-18 [facility] Thin prep Papanicolaou smear with manual screeningOrdered By: Calvin Hester on 09-14-2023 Thin prep Papanicolaou smear with manual screening 10 U/L 15-37 [facility] Thin prep Papanicolaou smear with manual screening 2 5-15 [facility] Basophil percentageOrdered B y: Jonathan Dillard on 09-13-2023 Bilirubin [Mass/Vol] 0.30 mg/dL 0.20-1.00 [facility] Comment on above: For patients on eltr ombopag therapy, use of [place] TBIL is not recommended. Chloride [Moles/Vol] 103 mmol/L 98-107 [facility] Glucose [Mass/Vol] 111 mg/dL 74-106 [facility] Comment on above: Fasting Glucose resu lt from 100 to 125 mg/dL suggests IMPAIRED HOMEOSTASIS per A.D.A. criteria. Potassium [Moles/Vol] 3.8 mmol/L 3.5-5.1 [facility] Protein [Mass/Vol] 6.6 g/dL 6.4-8.2 [facility] Sodium [Moles/Vol] 145 mmol/L 136-145 [facility] WBC (Bld) [#/Vol] 2.8 10*3/uL 4.4-11.0 [facility] Blood erythrocytes count (nu mber/volume)Ordered By: Jonathan Dillard on 09-13-2023 RBC (Bld) [#/Vol] 2.62 10*6/uL 4.2-5.4 [facility] Blood hemoglobin measurement (mass/volume)Ordered By: Jonathan Dillard on 09-13-2023 Hemoglobin (Bld) [Mass/Vol] 8.0 g/dL 12.0-15.0 [facility] Blood platelet mean volumeOr dered By: Jonathan Dillard on 09-13-2023 Platelet mean volume (Bld) [Entitic vol] 8.6 fL 6.2-12.0 [facility] Determination of erythrocyte mean corpuscular volume (MCV)Ordered By: Jonathan Dillard on 09-13-2023 MCV (RBC) [Entitic vol] 103.4 fL 81-99 [facility] Hematocrit Auto (Bld) [Volum e fraction]Ordered By: Jonathan Dillard on 09-13-2023 Hematocrit (Bld) [Volume fraction] 27.1 % 37-47 [facility] Laboratory - Chemistry and C hemistry - challengeOrdered By: Jonathan Dillard on 09-13-2023 ALP [Catalytic activity/Vol] 58 U/L 45-117 [facility] ALT [Catalytic activity/Vol] 18 U/L 13-56 [facility] CO2 [Moles/Vol] 41.0 mmol/L 21.0-32.0 [facility] Globulin (S) [Mass/Vol] 4.2 g/dL 2.2-4.2 [facility] Urea nitrogen/Creatinine [Mass ratio] 34.5 mg/mg 10-20 [facility] Laboratory - Hematology and Cell countsOrdered By: Jonathan Dillard on 09-13-2023 Erythrocyte distribution width (RBC) [Entitic vol] 54.3 fL 35.1-43.9 [facility] Erythrocyte distribution width (RBC) [Ratio] 14.4 % 11.6-14.6 [facility] MCH (RBC) [Entitic mass] 30.5 pg 27.0-32.0 [facility] MCHC Auto (RBC) [Mass/Vol]Or dered By: Jonathan Dillard on 09-13-2023 MCHC (RBC) [Mass/Vol] 29.5 g/dL 32-36 [facility] Comment on above: Delta: 27.9 on 09/08 No Panel InformationOrdered By: Jonathan Dillard on 09-13-2023 Estimated GFR (MDRD) Amer 148 mL/min >60 [facility] Comment on above: GFR Calc Estimated GFR (MDRD) Non-Af Amer 122 mL/min >60 [facility] Comment on above: Non- GFR Calc Platelets bldOrdered By: Mervat Dillard on 09-13-2023 Platelets (Bld) [#/Vol] 103 10*3/uL 150-450 [facility] Serum or plasma albumin celina urement (mass/volume)Ordered By: Jonathan Dillard on 09-13-2023 Albumin [Mass/Vol] 2.4 g/dL 3.2-5.0 [facility] Serum or plasma albumin/glob ulin mass ratioOrdered By: Jonathan Dillard on 09-13-2023 Albumin/Globulin [Mass ratio] 0.6 {ratio} 0.9-2.4 [facility] Serum or plasma calcium celina urement (mass/volume)Ordered By: Jonathan Dillard on 09-13-2023 Calcium [Mass/Vol] 8.7 mg/dL 8.5-10.1 [facility] Serum or plasma creatinine m easurement (mass/volume)Ordered By: Jonathan Dillard on 09-13-2023 Creatinine [Mass/Vol] 0.52 mg/dL 0.55-1.02 [facility] Comment on above: The validity of the calculated GFR & GFRAA in patients over 70 years has not been determined. Clinical correlation is essential. Serum or plasma urea nitroge n measurement (mass/volume)Ordered By: Jonathan Dillard on 09-13-2023 Urea nitrogen [Mass/Vol] 18 mg/dL 7-18 [facility] Thin prep Papanicolaou smear with manual screeningOrdered By: Jonathan Dillard on 09-13-2023 Thin prep Papanicolaou smear with manual screening 11 U/L 15-37 [facility] Thin prep Papanicolaou smear with manual screening 1 5-15 [facility] Culture, urineOrdered By: Chloe Jeffries on 09-09-2023 Bacteria identified Cx Nom (U) Mixed Gram Pos & Gram Neg Org [facility] Cytology report of Body flui d Cyto stainOrdered By: Alecia Navarrete on 09-09-2023 Cytology report Cyto stain Doc (Body fld) SEE PATHOLOGY REPORT [facility] Comment on above: Specimen submitted t o Anatomical Pathology Department for testing. Absolute lymphocyte countOrd ered By: Delfin Jeffries on 09-08-2023 Lymphocytes Auto (Unsp spec) [#/Vol] 0.60 10*3/uL 0.83-4.51 [facility] Basophil percentageOrdered B y: Delfin Jeffries on 09-08-2023 Basophil percentage >100 SEEN /hpf 0-5 [facility] Comment on above: Microscopic field is filled. Other elements may be obscured. Basophil percentage 3.4 mg/dL 2.5-4.9 [facility] Basophils/100 WBC (Bld) 0.2 % 0-1 [facility] Bilirubin [Mass/Vol] 0.40 mg/dL 0.20-1.00 [facility] Comment on above: For patients on eltr ombopag therapy, use of [place] TBIL is not recommended. Chloride [Moles/Vol] 104 mmol/L 98-107 [facility] Eosinophils/100 WBC (Bld) 0.7 % 0-5 [facility] Glucose [Mass/Vol] 163 mg/dL 74-106 [facility] Comment on above: Fasting Glucose resu lt greater than or equal to 126 mg/dL suggests DIABETES MELLITUS per A.D.A. criteria. Neutrophils (Bld) [#/Vol] 3.5 10*3/uL 2.0-7.7 [facility] Neutrophils/100 WBC (Bld) 78.8 % 47-70 [facility] Potassium [Moles/Vol] 3.8 mmol/L 3.5-5.1 [facility] Protein [Mass/Vol] 7.1 g/dL 6.4-8.2 [facility] Sodium [Moles/Vol] 143 mmol/L 136-145 [facility] WBC (Bld) [#/Vol] 4.5 10*3/uL 4.4-11.0 [facility] Bilirubin Test strip Ql (U)O rdered By: Delfin Jeffries on 09-08-2023 Bilirubin Ql (U) Negative Negative [facility] Blood erythrocytes count (nu mber/volume)Ordered By: Delfin Jeffries on 09-08-2023 RBC (Bld) [#/Vol] 3.10 10*6/uL 4.2-5.4 [facility] Blood hemoglobin measurement (mass/volume)Ordered By: Delfin Jeffries on 09-08-2023 Hemoglobin (Bld) [Mass/Vol] 9.0 g/dL 12.0-15.0 [facility] Blood lymphocytes/100 leukoc ytesOrdered By: Delfin Jeffries on 09-08-2023 Lymphocytes/100 WBC (Bld) 13.4 % 19-41 [facility] Blood manual differential co mment interpretation (narrative result)Ordered By: Delfin Jeffries on 09-08-2023 Manual differential comment Ajit (Bld) [Interp] SCANNED [facility] Blood monocytes/100 leukocyt esOrdered By: Delfin Jeffries on 09-08-2023 Monocytes/100 WBC (Bld) 6.5 % 0-10 [facility] Blood platelet mean volumeOr dered By: Delfin Jeffries on 09-08-2023 Platelet mean volume (Bld) [Entitic vol] 8.1 fL 6.2-12.0 [facility] Culture, urineOrdered By: Chloe Jeffries on 09-08-2023 Bacteria identified Cx Nom (U) Mixed Gram Pos & Gram Neg Org [facility] Determination of erythrocyte mean corpuscular volume (MCV)Ordered By: Delfin Jeffries on 09-08-2023 MCV (RBC) [Entitic vol] 104.2 fL 81-99 [facility] Erythrocyte sedimentation ra teOrdered By: Delfin Jeffries on 09-08-2023 ESR (Bld) [Velocity] 43 mm/h 0-30 [facility] Hematocrit Auto (Bld) [Volum e fraction]Ordered By: Delfin Jeffries on 09-08-2023 Hematocrit (Bld) [Volume fraction] 32.3 % 37-47 [facility] Hemoglobin in reticulocytes (mass per reticulocyte)Ordered By: Delfin Jeffries on 09-08-2023 Hemoglobin (Reticulocytes) [Entitic mass] 26.4 pg 30-35 [facility] Iron measurement (mass/mass) Ordered By: Delfin Jeffries on 09-08-2023 Iron (Unsp spec) [Mass/Mass] 32 ug/dL 50-170 [facility] Ketones Test strip Ql (U)Ord ered By: Delfin Jeffries on 09-08-2023 Ketones Ql (U) 5 mg/dl Negative [facility] Laboratory - Chemistry and C hemistry - challengeOrdered By: Delfin Jeffries on 09-08-2023 ALP [Catalytic activity/Vol] 69 U/L 45-117 [facility] ALT [Catalytic activity/Vol] 17 U/L 13-56 [facility] CO2 [Moles/Vol] 38.0 mmol/L 21.0-32.0 [facility] Cobalamin (Vitamin B12) [Mass/Vol] 1331 pg/mL 211-911 [facility] Globulin (S) [Mass/Vol] 4.5 g/dL 2.2-4.2 [facility] Magnesium [Mass/Vol] 2.1 mg/dL 1.6-2.6 [facility] Urea nitrogen/Creatinine [Mass ratio] 31.6 mg/mg 10-20 [facility] Laboratory - Hematology and Cell countsOrdered By: Delfin Jeffries on 09-08-2023 Erythrocyte distribution width (RBC) [Entitic vol] 55.1 fL 35.1-43.9 [facility] Erythrocyte distribution width (RBC) [Ratio] 14.6 % 11.6-14.6 [facility] Immature granulocytes/100 WBC (Bld) 0.400 % 0.0-0.9 [facility] Comment on above: IG% - Immature Granu locytes (promyelocytes, myelocytes and metamyelocytes) > 1% indicates that a LEFT SHIFT is Present. MCH (RBC) [Entitic mass] 29.0 pg 27.0-32.0 [facility] Nucleated RBC/100 WBC (Bld) [Ratio] 0 % 0-5 [facility] MCHC Auto (RBC) [Mass/Vol]Or dered By: Delfin Jeffries on 09-08-2023 MCHC (RBC) [Mass/Vol] 27.9 g/dL 32-36 [facility] Mucus LM Ql (Urine sed)Order ed By: Delfin Jeffries on 09-08-2023 Mucus Ql (Urine sed) 0 SEEN /hpf [facility] Nitrite Test strip Ql (U)Ord ered By: Delfin Jeffries on 09-08-2023 Nitrite Ql (U) Negative Negative [facility] No Panel InformationOrdered By: Delfin Jeffries on 09-08-2023 Estimated Creatinine Clearance Calc 43.27 ml/min [facility] Estimated GFR (MDRD) Amer 118 mL/min >60 [facility] Comment on above: GFR Calc Estimated GFR (MDRD) Non-Af Amer 98 mL/min >60 [facility] Comment on above: Non- GFR Calc Immature Reticulocyte Fraction 17.60 % 3.00-15.90 [facility] Reticulocyte Count 2.46 % 0.5-1.5 [facility] Total Iron Binding Capacity 216 ug/dL 250-450 [facility] Platelets bldOrdered By: Luciano Jeffries on 09-08-2023 Platelets (Bld) [#/Vol] 113 10*3/uL 150-450 [facility] Protein Test strip Ql (U)Ord ered By: Delfin Jeffries on 09-08-2023 Protein Ql (U) 500 mg/dl Negative [facility] Serum or plasma C reactive p rotein measurement (mass/volume)Ordered By: Delfin Benson on 09-08-2023 CRP [Mass/Vol] 81.40 mg/L 0.0-3.0 [facility] Comment on above: C-Reactive Protein [...] 09-08-2023 Albumin/Globulin [Mass ratio] 0.6 {ratio} 0.9-2.4 [facility] Serum or plasma calcium celina urement (mass/volume)Ordered By: Delfin Benson on 09-08-2023 Calcium [Mass/Vol] 8.7 mg/dL 8.5-10.1 [facility] Serum or plasma creatinine m easurement (mass/volume)Ordered By: Delfin Benson on 09-08-2023 Creatinine [Mass/Vol] 0.63 mg/dL 0.55-1.02 [facility] Comment on above: The validity of the calculated GFR & GFRAA in patients over 70 years has not been determined. Clinical correlation is essential. Serum or plasma ferritin carter surement (mass/volume)Ordered By: Delfin Jeffries on 09-08-2023 Ferritin [Mass/Vol] 243 ng/mL 8-252 [facility] Serum or plasma folate measu rement (mass/volume)Ordered By: Delfin Jeffries on 09-08-2023 Folate [Mass/Vol] 84.50 ng/mL 3.1-55.4 [facility] Serum or plasma iron saturat ion measurement (mass fraction)Ordered By: Delfin Jeffries on 09-08-2023 Iron saturation [Mass fraction] 14.8 % 15.0-55.0 [facility] Serum or plasma urea nitroge n measurement (mass/volume)Ordered By: Delfin Jeffries on 09-08-2023 Urea nitrogen [Mass/Vol] 20 mg/dL 7-18 [facility] Squamous epithelial cells de tection in urine sediment by light microscopyOrdered By: Delfin Jeffries on 09-08-2023 Epithelial cells.squamous LM Ql (Urine sed) 0 SEEN /hpf 5-10 [facility] Thin prep Papanicolaou smear with manual screeningOrdered By: Delfin Jeffries on 09-08-2023 Thin prep Papanicolaou smear with manual screening 15 U/L 15-37 [facility] Thin prep Papanicolaou smear with manual screening 1 5-15 [facility] Urine blood detectionOrdered By: Delfin Jeffries on 09-08-2023 RBC Ql (U) 250 /ul Negative [facility] RBC Ql (U) > 100 SEEN /hpf 0-5 [facility] Comment on above: Microscopic field is filled. Other elements may be obscured. Urine clarityOrdered By: Luciano Jeffries on 09-08-2023 Clarity (U) Cloudy Clear [facility] Urine color determinationOrd ered By: Delfin Jeffries on 09-08-2023 Color (U) Brown Yellow [facility] Urine glucose detectionOrder ed By: Delfin Jeffries on 09-08-2023 Glucose Ql (U) Normal mg/dl Normal [facility] Urine leukocyte esterase det ection by dipstickOrdered By: Delfin Jeffries on 09-08-2023 Leukocyte esterase Test strip Ql (U) 100 /ul Negative [facility] Urine pHOrdered By: Delfin elizabeth on 09-08-2023 pH (U) 5.0 [pH] 5.0 - 8.0 [facility] Urine sediment bacteria coun t by microscopy (number/high power field)Ordered By: Delfin Jeffries on 09-08-2023 Bacteria LM.HPF (Urine sed) [#/Area] 0 /[HPF] None Seen [facility] Urine specific gravity measu rementOrdered By: Delfin Jeffries on 09-08-2023 Specific gravity (U) [Rel density] 1.020 1.002-1.030 [facility] Urobilinogen Auto test strip Ql (U)Ordered By: Delfin Jeffries on 09-08-2023 Urobilinogen Ql (U) Normal mg/dl Normal [facility] Basophil percentageOrdered B y: Jonathan Dillard on 08-31-2023 Basophil percentage >100 SEEN /hpf 0-[address] [facility] Chloride [Moles/Vol] 104 mmol/L 98-107 [facility] Glucose [Mass/Vol] 110 mg/dL 74-106 [facility] Comment on above: Fasting Glucose resu lt from 100 to 125 mg/dL suggests IMPAIRED HOMEOSTASIS per A.D.A. criteria. Potassium [Moles/Vol] 3.9 mmol/L 3.5-5.1 [facility] Sodium [Moles/Vol] 146 mmol/L 136-145 [facility] WBC (Bld) [#/Vol] 3.7 10*3/uL 4.4-11.0 [facility] Bilirubin Test strip Ql (U)O rdered By: Jonathan Dillard on 08-31-2023 Bilirubin Ql (U) Negative Negative [facility] Blood erythrocytes count (nu mber/volume)Ordered By: Jonathan Dillard on 08-31-2023 RBC (Bld) [#/Vol] 2.85 10*6/uL 4.2-5.4 [facility] Blood hemoglobin measurement (mass/volume)Ordered By: Jonathan Dillard on 08-31-2023 Hemoglobin (Bld) [Mass/Vol] 8.5 g/dL 12.0-15.0 [facility] Blood manual differential co mment interpretation (narrative result)Ordered By: Jonathan Dillard on 08-31-2023 Manual differential comment Ajit (Bld) [Interp] COMMENT [facility] Comment on above: PLT POPULATION - MOD ERATELY DECREASED. Blood platelet mean volumeOr dered By: Jonathan Dillard on 08-31-2023 Platelet mean volume (Bld) [Entitic vol] 9.6 fL 6.2-12.0 [facility] Culture, urineOrdered By: Higuera on 08-31-2023 Bacteria identified Cx Nom (U) Mixed Gram Pos & Gram Neg Org [facility] Determination of erythrocyte mean corpuscular volume (MCV)Ordered By: Jonathan Dillard on 08-31-2023 MCV (RBC) [Entitic vol] 102.8 fL 81-99 [facility] Hematocrit Auto (Bld) [Volum e fraction]Ordered By: Jonathan Dillard on 08-31-2023 Hematocrit (Bld) [Volume fraction] 29.3 % 37-47 [facility] Ketones Test strip Ql (U)Ord ered By: Jonathan Dillard on 08-31-2023 Ketones Ql (U) Negative Negative [facility] Laboratory - Chemistry and C hemistry - challengeOrdered By: Jonathan Dillard on 08-31-2023 CO2 [Moles/Vol] 39.0 mmol/L 21.0-32.0 [facility] Urea nitrogen/Creatinine [Mass ratio] 37.5 mg/mg 10-20 [facility] Laboratory - Hematology and Cell countsOrdered By: Jonathan Dillard on 08-31-2023 Erythrocyte distribution width (RBC) [Entitic vol] 54.3 fL 35.1-43.9 [facility] Erythrocyte distribution width (RBC) [Ratio] 14.4 % 11.6-14.6 [facility] MCH (RBC) [Entitic mass] 29.8 pg 27.0-32.0 [facility] MCHC Auto (RBC) [Mass/Vol]Or dered By: Jonathan Dillard on 08-31-2023 MCHC (RBC) [Mass/Vol] 29.0 g/dL 32-36 [facility] Mucus LM Ql (Urine sed)Order ed By: Jonathan Dillard on 08-31-2023 Mucus Ql (Urine sed) 0 SEEN /hpf [facility] Nitrite Test strip Ql (U)Ord ered By: Jonathan Dillard on 08-31-2023 Nitrite Ql (U) Negative Negative [facility] No Panel InformationOrdered By: Jonathan Dillard on 08-31-2023 Estimated GFR (MDRD) Amer 153 mL/min >60 [facility] Comment on above: GFR Calc Estimated GFR (MDRD) Non-Af Amer 127 mL/min >60 [facility] Comment on above: Non- GFR Calc Platelets bldOrdered By: Mervat Dillard on 08-31-2023 Platelets (Bld) [#/Vol] 96 10*3/uL 150-450 [facility] Protein Test strip Ql (U)Ord ered By: Jonathan Dillard on 08-31-2023 Protein Ql (U) 100 mg/dl Negative [facility] Serum or plasma calcium celina urement (mass/volume)Ordered By: Jonathan Dillard on 08-31-2023 Calcium [Mass/Vol] 9.5 mg/dL 8.5-10.1 [facility] Serum or plasma creatinine m easurement (mass/volume)Ordered By: Jonathan Dillard on 08-31-2023 Creatinine [Mass/Vol] 0.51 mg/dL 0.55-1.02 [facility] Comment on above: The validity of the calculated GFR & GFRAA in patients over 70 years has not been determined. Clinical correlation is essential. Serum or plasma urea nitroge n measurement (mass/volume)Ordered By: Jonathan Dillard on 08-31-2023 Urea nitrogen [Mass/Vol] 19 mg/dL - [facility] Squamous epithelial cells de tection in urine sediment by light microscopyOrdered By: Jonathan Dillard on 08-31-2023 Epithelial cells.squamous LM Ql (Urine sed) 0 SEEN /hpf 5-10 [facility] Thin prep Papanicolaou smear with manual screeningOrdered By: Jonathan Dillard on 08-31-2023 Thin prep Papanicolaou smear with manual screening 3 5-15 [facility] Urine blood detectionOrdered By: Jonathan Dillard on 08-31-2023 RBC Ql (U) 250 /ul Negative [facility] RBC Ql (U) > 100 SEEN /hpf 0-5 [facility] Urine clarityOrdered By: Mervat Dillard on 08-31-2023 Clarity (U) Cloudy Clear [facility] Urine color determinationOrd ered By: Jonathan Dillard on 08-31-2023 Color (U) Yellow Yellow [facility] Urine glucose detectionOrder ed By: Jonathan Dillard on 08-31-2023 Glucose Ql (U) Normal mg/dl Normal [facility] Urine leukocyte esterase det ection by dipstickOrdered By: Jonathan Dillard on 08-31-2023 Leukocyte esterase Test strip Ql (U) 500 /ul Negative [facility] Urine pHOrdered By: Jonathan ramirez on 08-31-2023 pH (U) 6.0 [pH] 5.0 - 8.0 [facility] Urine sediment bacteria coun t by microscopy (number/high power field)Ordered By: Jonathan Dillard on 08-31-2023 Bacteria LM.HPF (Urine sed) [#/Area] 2 /[HPF] None Seen [facility] Urine specific gravity measu rementOrdered By: Jonathan Dillard on 08-31-2023 Specific gravity (U) [Rel density] 1.015 1.002-1.030 [facility] Urobilinogen Auto test strip Ql (U)Ordered By: Jonathan Dillard on 08-31-2023 Urobilinogen Ql (U) Normal mg/dl Normal [facility] Culture, urineOrdered By: Higuera on 08-17-2023 Bacteria identified Cx Nom (U) Mixed Gram Pos & Gram Neg Org [facility] XR BARIUM ENEMA COMPLETEon 1 [...] Levi Jimenez MD Preliminary Report By: Levi Jmienez MD Electronically signed By Levi Jimenez MD Dictated Date: 08/17/2023 3:39:39 PM Prelim Date: 08/17/2023 3:50:07 PM Sign Date: 08/17/2023 3:50:07 PM Ordering Provider: MARK JEREZ [facility] ([place]) Basophil percentageOrdered B y: Jonathan Dillard on 08-16-2023 Basophil percentage 0-5 SEEN /hpf 0-5 [facility] Bilirubin Test strip Ql (U)O rdered By: Jonathan Dillard on 08-16-2023 Bilirubin Ql (U) Negative Negative [facility] Culture, urineOrdered By: Higuera on 08-16-2023 Bacteria identified Cx Nom (U) Mixed Gram Pos & Gram Neg Org [facility] Hyaline casts LM.LPF (Urine sed) [#/Area]Ordered By: Jonathan Dillard on 08-16-2023 Hyaline casts (Urine sed) [#/Area] 5 /[LPF] 0-5 [facility] Ketones Test strip Ql (U)Ord ered By: Jonathan Dillard on 08-16-2023 Ketones Ql (U) 5 mg/dl Negative [facility] Mucus LM Ql (Urine sed)Order ed By: Jonathan Dillard on 08-16-2023 Mucus Ql (Urine sed) 0 SEEN /hpf [facility] Nitrite Test strip Ql (U)Ord ered By: Jonathan Dillard on 08-16-2023 Nitrite Ql (U) Negative Negative [facility] Protein Test strip Ql (U)Ord ered By: Jonathan Dillard on 08-16-2023 Protein Ql (U) 100 mg/dl Negative [facility] Squamous epithelial cells de tection in urine sediment by light microscopyOrdered By: Jonathan Dillard on 08-16-2023 Epithelial cells.squamous LM Ql (Urine sed) 5-10 SEEN /hpf 5-10 [facility] Urine blood detectionOrdered By: Jonathan Dillard on 08-16-2023 RBC Ql (U) 150 /ul Negative [facility] RBC Ql (U) 5-10 SEEN /hpf 0-5 [facility] Urine clarityOrdered By: Mervat Dillard on 08-16-2023 Clarity (U) Sl. Cloudy Clear [facility] Urine color determinationOrd ered By: Jonathan Dillard on 08-16-2023 Color (U) Yellow Yellow [facility] Urine glucose detectionOrder ed By: Jonathan Dillard on 08-16-2023 Glucose Ql (U) Normal mg/dl Normal [facility] Urine leukocyte esterase det ection by dipstickOrdered By: Jonathan Dillard on 08-16-2023 Leukocyte esterase Test strip Ql (U) 25 /ul Negative [facility] Urine pHOrdered By: Jonathan ramirez on 08-16-2023 pH (U) 5.0 [pH] 5.0 - 8.0 [facility] Urine sediment bacteria coun t by microscopy (number/high power field)Ordered By: Jonathan Dillard on 08-16-2023 Bacteria LM.HPF (Urine sed) [#/Area] 1 /[HPF] None Seen [facility] Urine specific gravity measu rementOrdered By: Jonathan Dillard on 08-16-2023 Specific gravity (U) [Rel density] 1.025 1.002-1.030 [facility] Urobilinogen Auto test strip Ql (U)Ordered By: Jonathan Dillard on 08-16-2023 Urobilinogen Ql (U) Normal mg/dl Normal [facility] LABORATORYOrdered By: Amy Gomez on 08-15-2023 Glucose [Mass/Vol] 147 mg/dL Invalid Interpretation Code 82 - 115 mg/dL [facility] Work Phone: XR ABDOMEN APon 08-15-2023 [...] PM Ordering Provider: MARK JEREZ [facility] ([place]) Absolute lymphocyte countOrd ered By: Calvin Hester on 08-10-2023 Lymphocytes Auto (Unsp spec) [#/Vol] 0.52 10*3/uL 0.83-4.51 [facility] Basophil percentageOrdered B y: Calvin Hester on 08-10-2023 Basophils/100 WBC (Bld) 0.1 % 0-1 [facility] Chloride [Moles/Vol] 103 mmol/L 98-107 [facility] Eosinophils/100 WBC (Bld) 0.4 % 0-5 [facility] Glucose [Mass/Vol] 149 mg/dL 74-106 [facility] Comment on above: Fasting Glucose resu lt greater than or equal to 126 mg/dL suggests DIABETES MELLITUS per A.D.A. criteria. Neutrophils (Bld) [#/Vol] 5.8 10*3/uL 2.0-7.7 [facility] Neutrophils/100 WBC (Bld) 85.8 % 47-70 [facility] Potassium [Moles/Vol] 4.1 mmol/L 3.5-5.1 [facility] Sodium [Moles/Vol] 144 mmol/L 136-145 [facility] WBC (Bld) [#/Vol] 6.8 10*3/uL 4.4-11.0 [facility] Blood erythrocytes count (nu mber/volume)Ordered By: Calvin Hester on 08-10-2023 RBC (Bld) [#/Vol] 3.38 10*6/uL 4.2-5.4 [facility] Blood hemoglobin measurement (mass/volume)Ordered By: Calvin Hester on 08-10-2023 Hemoglobin (Bld) [Mass/Vol] 9.9 g/dL 12.0-15.0 [facility] Blood lymphocytes/100 leukoc ytesOrdered By: Calvin Hester on 08-10-2023 Lymphocytes/100 WBC (Bld) 7.6 % 19-41 [facility] Blood manual differential co mment interpretation (narrative result)Ordered By: Calvin Hester on 08-10-2023 Manual differential comment Ajit (Bld) [Interp] SCANNED [facility] Comment on above: LYMPHOPENIA NOTED Blood monocytes/100 leukocyt esOrdered By: Calvin Hester on 08-10-2023 Monocytes/100 WBC (Bld) 5.7 % 0-10 [facility] Blood platelet mean volumeOr dered By: Calvin Hester on 08-10-2023 Platelet mean volume (Bld) [Entitic vol] 9.1 fL 6.2-12.0 [facility] Determination of erythrocyte mean corpuscular volume (MCV)Ordered By: Calvin Hester on 08-10-2023 MCV (RBC) [Entitic vol] 100.0 fL 81-99 [facility] Hematocrit Auto (Bld) [Volum e fraction]Ordered By: Calvin Hester on 08-10-2023 Hematocrit (Bld) [Volume fraction] 33.8 % 37-47 [facility] Laboratory - Chemistry and C hemistry - challengeOrdered By: Calvin Hester on 08-10-2023 CO2 [Moles/Vol] 40.0 mmol/L 21.0-32.0 [facility] Magnesium [Mass/Vol] 2.1 mg/dL 1.6-2.6 [facility] Urea nitrogen/Creatinine [Mass ratio] 29.3 mg/mg 10-20 [facility] Laboratory - Hematology and Cell countsOrdered By: Calvin Hester on 08-10-2023 Erythrocyte distribution width (RBC) [Entitic vol] 51.8 fL 35.1-43.9 [facility] Erythrocyte distribution width (RBC) [Ratio] 14.1 % 11.6-14.6 [facility] Immature granulocytes/100 WBC (Bld) 0.400 % 0.0-0.9 [facility] Comment on above: IG% - Immature Granu locytes (promyelocytes, myelocytes and metamyelocytes) > 1% indicates that a LEFT SHIFT is Present. MCH (RBC) [Entitic mass] 29.3 pg 27.0-32.0 [facility] Nucleated RBC/100 WBC (Bld) [Ratio] 0 % 0-5 [facility] MCHC Auto (RBC) [Mass/Vol]Or dered By: Calvin Hester on 08-10-2023 MCHC (RBC) [Mass/Vol] 29.3 g/dL 32-36 [facility] No Panel InformationOrdered By: Calvin Hester on 08-10-2023 Estimated Creatinine Clearance Calc 45.09 ml/min [facility] Estimated GFR (MDRD) Amer 123 mL/min >60 [facility] Comment on above: GFR Calc Estimated GFR (MDRD) Non-Af Amer 101 mL/min >60 [facility] Comment on above: Non- GFR Calc Platelets bldOrdered By: Farooq Hester on 08-10-2023 Platelets (Bld) [#/Vol] 108 10*3/uL 150-450 [facility] Serum or plasma calcium celina urement (mass/volume)Ordered By: Calvin Hester on 08-10-2023 Calcium [Mass/Vol] 8.4 mg/dL 8.5-10.1 [facility] Serum or plasma creatinine m easurement (mass/volume)Ordered By: Calvin Hester on 08-10-2023 Creatinine [Mass/Vol] 0.61 mg/dL 0.55-1.02 [facility] Comment on above: The validity of the calculated GFR & GFRAA in patients over 70 years has not been determined. Clinical correlation is essential. Serum or plasma urea nitroge n measurement (mass/volume)Ordered By: Calvin Hester on 08-10-2023 Urea nitrogen [Mass/Vol] 18 mg/dL 7-18 [facility] Thin prep Papanicolaou smear with manual screeningOrdered By: Calvin Hester on 08-10-2023 Thin prep Papanicolaou smear with manual screening 1 5-15 [facility] Absolute lymphocyte countOrd ered By: Shahnaz Way on 07-14-2023 Lymphocytes Auto (Unsp spec) [#/Vol] 0.68 10*3/uL 0.83-4.51 [facility] Basophil percentageOrdered B y: Shahnaz Way on 07-14-2023 Basophil percentage 0 SEEN /hpf 0-5 [facility] Basophils/100 WBC (Bld) 0.2 % 0-1 [facility] Bilirubin [Mass/Vol] 0.30 mg/dL 0.20-1.00 [facility] Comment on above: For patients on eltr ombopag therapy, use of [place] TBIL is not recommended. Chloride [Moles/Vol] 103 mmol/L 98-107 [facility] Eosinophils/100 WBC (Bld) 1.3 % 0-5 [facility] Glucose [Mass/Vol] 127 mg/dL 74-106 [facility] Comment on above: Fasting Glucose resu lt greater than or equal to 126 mg/dL suggests DIABETES MELLITUS per A.D.A. criteria. Neutrophils (Bld) [#/Vol] 3.6 10*3/uL 2.0-7.7 [facility] Neutrophils/100 WBC (Bld) 76.9 % 47-70 [facility] Potassium [Moles/Vol] 3.7 mmol/L 3.5-5.1 [facility] Protein [Mass/Vol] 7.0 g/dL 6.4-8.2 [facility] Sodium [Moles/Vol] 144 mmol/L 136-145 [facility] WBC (Bld) [#/Vol] 4.6 10*3/uL 4.4-11.0 [facility] Bilirubin Test strip Ql (U)O rdered By: Shahnaz Way on 07-14-2023 Bilirubin Ql (U) Negative Negative [facility] Blood erythrocytes count (nu mber/volume)Ordered By: Shahnaz Way on 07-14-2023 RBC (Bld) [#/Vol] 3.10 10*6/uL 4.2-5.4 [facility] Blood hemoglobin measurement (mass/volume)Ordered By: Shahnaz Way on 07-14-2023 Hemoglobin (Bld) [Mass/Vol] 8.8 g/dL 12.0-15.0 [facility] Blood lymphocytes/100 leukoc ytesOrdered By: Shahnaz Way on 07-14-2023 Lymphocytes/100 WBC (Bld) 14.7 % 19-41 [facility] Blood monocytes/100 leukocyt esOrdered By: Shahnaz Way on 07-14-2023 Monocytes/100 WBC (Bld) 6.5 % 0-10 [facility] Blood platelet mean volumeOr dered By: Shahnaz Way on 07-14-2023 Platelet mean volume (Bld) [Entitic vol] 8.9 fL 6.2-12.0 [facility] Determination of erythrocyte mean corpuscular volume (MCV)Ordered By: Shahnaz Way on 07-14-2023 MCV (RBC) [Entitic vol] 101.3 fL 81-99 [facility] Hematocrit Auto (Bld) [Volum e fraction]Ordered By: Shahnaz Way on 07-14-2023 Hematocrit (Bld) [Volume fraction] 31.4 % 37-47 [facility] Ketones Test strip Ql (U)Ord ered By: Shahnaz Way on 07-14-2023 Ketones Ql (U) Negative Negative [facility] Laboratory - Chemistry and C hemistry - challengeOrdered By: Shahnaz Way on 07-14-2023 ALP [Catalytic activity/Vol] 76 U/L 45-117 [facility] ALT [Catalytic activity/Vol] 25 U/L 13-56 [facility] CO2 [Moles/Vol] 40.0 mmol/L 21.0-32.0 [facility] Globulin (S) [Mass/Vol] 4.4 g/dL 2.2-4.2 [facility] Urea nitrogen/Creatinine [Mass ratio] 37.6 mg/mg 10-20 [facility] Laboratory - Hematology and Cell countsOrdered By: Shahnaz Way on 07-14-2023 Erythrocyte distribution width (RBC) [Entitic vol] 53.1 fL 35.1-43.9 [facility] Erythrocyte distribution width (RBC) [Ratio] 14.4 % 11.6-14.6 [facility] Immature granulocytes/100 WBC (Bld) 0.400 % 0.0-0.9 [facility] Comment on above: IG% - Immature Granu locytes (promyelocytes, myelocytes and metamyelocytes) > 1% indicates that a LEFT SHIFT is Present. MCH (RBC) [Entitic mass] 28.4 pg 27.0-32.0 [facility] Nucleated RBC/100 WBC (Bld) [Ratio] 0 % 0-5 [facility] MCHC Auto (RBC) [Mass/Vol]Or dered By: Shahnaz Way on 07-14-2023 MCHC (RBC) [Mass/Vol] 28.0 g/dL 32-36 [facility] Mucus LM Ql (Urine sed)Order ed By: Shahnaz Way on 07-14-2023 Mucus Ql (Urine sed) 0 SEEN /hpf [facility] Nitrite Test strip Ql (U)Ord ered By: Shahnaz Way on 07-14-2023 Nitrite Ql (U) Negative Negative [facility] No Panel InformationOrdered By: Shahnaz Way on 07-14-2023 Estimated Creatinine Clearance Calc 45.09 ml/min [facility] Estimated GFR (MDRD) Amer 123 mL/min >60 [facility] Comment on above: GFR Calc Estimated GFR (MDRD) Non-Af Amer 102 mL/min >60 [facility] Comment on above: Non- GFR Calc Platelets bldOrdered By: Jaimee Way on 07-14-2023 Platelets (Bld) [#/Vol] 117 10*3/uL 150-450 [facility] Protein Test strip Ql (U)Ord ered By: Shahnaz Way on 07-14-2023 Protein Ql (U) 15 mg/dl Negative [facility] Serum or plasma albumin celina urement (mass/volume)Ordered By: Shahnaz Way on 07-14-2023 Albumin [Mass/Vol] 2.6 g/dL 3.2-5.0 [facility] Serum or plasma albumin/glob ulin mass ratioOrdered By: Shahnaz Way on 07-14-2023 Albumin/Globulin [Mass ratio] 0.6 {ratio} 0.9-2.4 [facility] Serum or plasma calcium celina urement (mass/volume)Ordered By: Shahnaz Way on 07-14-2023 Calcium [Mass/Vol] 8.8 mg/dL 8.5-10.1 [facility] Serum or plasma creatinine m easurement (mass/volume)Ordered By: Shahnaz Way on 07-14-2023 Creatinine [Mass/Vol] 0.61 mg/dL 0.55-1.02 [facility] Comment on above: The validity of the calculated GFR & GFRAA in patients over 70 years has not been determined. Clinical correlation is essential. Serum or plasma urea nitroge n measurement (mass/volume)Ordered By: Shahnaz Way on 07-14-2023 Urea nitrogen [Mass/Vol] 23 mg/dL 7-18 [facility] Squamous epithelial cells de tection in urine sediment by light microscopyOrdered By: Shahnaz Way on 07-14-2023 Epithelial cells.squamous LM Ql (Urine sed) 0 SEEN /hpf 5-10 [facility] Thin prep Papanicolaou smear with manual screeningOrdered By: Shahnaz Way on 07-14-2023 Thin prep Papanicolaou smear with manual screening 17 U/L 15-37 [facility] Thin prep Papanicolaou smear with manual screening 1 5-15 [facility] Urine blood detectionOrdered By: Shahnaz Way on 07-14-2023 RBC Ql (U) Negative Negative [facility] RBC Ql (U) 0-5 SEEN /hpf 0-5 [facility] Urine clarityOrdered By: Jaimee Way on 07-14-2023 Clarity (U) Clear Clear [facility] Urine color determinationOrd ered By: Shahnaz Way on 07-14-2023 Color (U) Yellow Yellow [facility] Urine glucose detectionOrder ed By: Shahnaz Way on 07-14-2023 Glucose Ql (U) Normal mg/dl Normal [facility] Urine leukocyte esterase det ection by dipstickOrdered By: Shahnaz Way on 07-14-2023 Leukocyte esterase Test strip Ql (U) Negative Negative [facility] Urine pHOrdered By: Shahnaz hoffman on 07-14-2023 pH (U) 6.0 [pH] 5.0 - 8.0 [facility] Urine sediment bacteria coun t by microscopy (number/high power field)Ordered By: Shahnaz Way on 07-14-2023 Bacteria LM.HPF (Urine sed) [#/Area] 0 /[HPF] None Seen [facility] Urine specific gravity measu rementOrdered By: Shahnaz Way on 07-14-2023 Specific gravity (U) [Rel density] 1.020 1.002-1.030 [facility] Urobilinogen Auto test strip Ql (U)Ordered By: Shahnaz Way on 07-14-2023 Urobilinogen Ql (U) Normal mg/dl Normal [facility] Basophil percentageOrdered B y: Jonathan Dillard on 06-28-2023 Bilirubin [Mass/Vol] 0.40 mg/dL 0.20-1.00 [facility] Comment on above: For patients on eltr ombopag therapy, use of [place] TBIL is not recommended. Chloride [Moles/Vol] 101 mmol/L 98-107 [facility] Glucose [Mass/Vol] 117 mg/dL 74-106 [facility] Comment on above: Fasting Glucose resu lt from 100 to 125 mg/dL suggests IMPAIRED HOMEOSTASIS per A.D.A. criteria. Potassium [Moles/Vol] 3.9 mmol/L 3.5-5.1 [facility] Protein [Mass/Vol] 6.8 g/dL 6.4-8.2 [facility] Sodium [Moles/Vol] 145 mmol/L 136-145 [facility] WBC (Bld) [#/Vol] 4.6 10*3/uL 4.4-11.0 [facility] Blood erythrocytes count (nu mber/volume)Ordered By: Jonathan Dillard on 06-28-2023 RBC (Bld) [#/Vol] 3.02 10*6/uL 4.2-5.4 [facility] Blood hemoglobin measurement (mass/volume)Ordered By: Jonathan Dillard on 06-28-2023 Hemoglobin (Bld) [Mass/Vol] 8.6 g/dL 12.0-15.0 [facility] Blood platelet mean volumeOr dered By: Jonathan Dillard on 06-28-2023 Platelet mean volume (Bld) [Entitic vol] 9.0 fL 6.2-12.0 [facility] Determination of erythrocyte mean corpuscular volume (MCV)Ordered By: Jonathan Dillard on 06-28-2023 MCV (RBC) [Entitic vol] 101.7 fL 81-99 [facility] Hematocrit Auto (Bld) [Volum e fraction]Ordered By: Jonathan Dillard on 06-28-2023 Hematocrit (Bld) [Volume fraction] 30.7 % 37-47 [facility] Laboratory - Chemistry and C hemistry - challengeOrdered By: Jonathan Dillard on 06-28-2023 ALP [Catalytic activity/Vol] 72 U/L 45-117 [facility] ALT [Catalytic activity/Vol] 16 U/L 13-56 [facility] CO2 [Moles/Vol] 43.0 mmol/L 21.0-32.0 [facility] Globulin (S) [Mass/Vol] 4.2 g/dL 2.2-4.2 [facility] Lipase [Catalytic activity/Vol] 18 U/L 13-75 [facility] Comment on above: Please note:LIPASE r evised reference range effective 23. New Lipase methodology. Expected to produce lower values than the previous assay method. NEW Reference Range: 13 - 75 U/L Urea nitrogen/Creatinine [Mass ratio] 32.5 mg/mg 10-20 [facility] Laboratory - Hematology and Cell countsOrdered By: Jonathan Dillard on 06-28-2023 Erythrocyte distribution width (RBC) [Entitic vol] 53.0 fL 35.1-43.9 [facility] Erythrocyte distribution width (RBC) [Ratio] 14.1 % 11.6-14.6 [facility] MCH (RBC) [Entitic mass] 28.5 pg 27.0-32.0 [facility] MCHC Auto (RBC) [Mass/Vol]Or dered By: Jonathan Dillard on 06-28-2023 MCHC (RBC) [Mass/Vol] 28.0 g/dL 32-36 [facility] No Panel InformationOrdered By: Jonathan Dillard on 08-15-2023 Estimated GFR (MDRD) Amer 115 mL/min >60 [facility] [facility] Comment on above: GFR Calc Estimated GFR (MDRD) Non-Af Amer 95 mL/min >60 [facility] Comment on above: Non- GFR Calc Platelets bldOrdered By: Mervat Dillard on 06-28-2023 Platelets (Bld) [#/Vol] 111 10*3/uL 150-450 [facility] Serum or plasma albumin celina urement (mass/volume)Ordered By: Jonathan Dillard on 06-28-2023 Albumin [Mass/Vol] 2.6 g/dL 3.2-5.0 [facility] Serum or plasma albumin/glob ulin mass ratioOrdered By: Jonathan Dillard on 06-28-2023 Albumin/Globulin [Mass ratio] 0.6 {ratio} 0.9-2.4 [facility] Serum or plasma calcium celina urement (mass/volume)Ordered By: Jonathan Dillard on 06-28-2023 Calcium [Mass/Vol] 9.0 mg/dL 8.5-10.1 [facility] Serum or plasma creatinine m easurement (mass/volume)Ordered By: Jonathan Dillard on 06-28-2023 Creatinine [Mass/Vol] 0.65 mg/dL 0.55-1.02 [facility] Comment on above: The validity of the calculated GFR & GFRAA in patients over 70 years has not been determined. Clinical correlation is essential. Serum or plasma urea nitroge n measurement (mass/volume)Ordered By: Jonathan Dillard on 06-28-2023 Urea nitrogen [Mass/Vol] 21 mg/dL 7-18 [facility] Thin prep Papanicolaou smear with manual screeningOrdered By: Jonathan Dillard on 06-28-2023 Thin prep Papanicolaou smear with manual screening 12 U/L 15-37 [facility] Thin prep Papanicolaou smear with manual screening 1 -15 [facility] Basophil percentageOrdered B y: Jonathan Dillard on 06-13-2023 Bilirubin [Mass/Vol] 0.40 mg/dL 0.20-1.00 [facility] Comment on above: For patients on eltr ombopag therapy, use of [place] TBIL is not recommended. Chloride [Moles/Vol] 104 mmol/L 98-107 [facility] Glucose [Mass/Vol] 114 mg/dL 74-106 [facility] Comment on above: Fasting Glucose resu lt from 100 to 125 mg/dL suggests IMPAIRED HOMEOSTASIS per A.D.A. criteria. Potassium [Moles/Vol] 4.0 mmol/L 3.5-5.1 [facility] Protein [Mass/Vol] 6.8 g/dL 6.4-8.2 [facility] Sodium [Moles/Vol] 146 mmol/L 136-145 [facility] WBC (Bld) [#/Vol] 4.5 10*3/uL 4.4-11.0 [facility] Blood erythrocytes count (nu mber/volume)Ordered By: Jonathan Dillard on 06-13-2023 RBC (Bld) [#/Vol] 3.13 10*6/uL 4.2-5.4 [facility] Blood hemoglobin measurement (mass/volume)Ordered By: Jonathan Dillard on 06-13-2023 Hemoglobin (Bld) [Mass/Vol] 9.0 g/dL 12.0-15.0 [facility] Blood platelet mean volumeOr dered By: Jonathan Dillard on 06-13-2023 Platelet mean volume (Bld) [Entitic vol] 9.1 fL 6.2-12.0 [facility] Determination of erythrocyte mean corpuscular volume (MCV)Ordered By: Jonathan Dillard on 06-13-2023 MCV (RBC) [Entitic vol] 100.6 fL 81-99 [facility] Hematocrit Auto (Bld) [Volum e fraction]Ordered By: Jonathan Dillard on 06-13-2023 Hematocrit (Bld) [Volume fraction] 31.5 % 37-47 [facility] Laboratory - Chemistry and C hemistry - challengeOrdered By: Jonathan Dillard on 06-13-2023 ALP [Catalytic activity/Vol] 72 U/L 45-117 [facility] ALT [Catalytic activity/Vol] 14 U/L 13-56 [facility] CO2 [Moles/Vol] 42.0 mmol/L 21.0-32.0 [facility] Globulin (S) [Mass/Vol] 4.2 g/dL 2.2-4.2 [facility] Urea nitrogen/Creatinine [Mass ratio] 30.8 mg/mg 10-20 [facility] Laboratory - Hematology and Cell countsOrdered By: Jonathan Dillard on 06-13-2023 Erythrocyte distribution width (RBC) [Entitic vol] 51.3 fL 35.1-43.9 [facility] Erythrocyte distribution width (RBC) [Ratio] 13.9 % 11.6-14.6 [facility] MCH (RBC) [Entitic mass] 28.8 pg 27.0-32.0 [facility] MCHC Auto (RBC) [Mass/Vol]Or dered By: Jonathan Dillard on 06-13-2023 MCHC (RBC) [Mass/Vol] 28.6 g/dL 32-36 [facility] No Panel InformationOrdered By: Jonathan Dillard on 06-13-2023 Estimated GFR (MDRD) Amer 115 mL/min >60 [facility] Comment on above: GFR Calc Estimated GFR (MDRD) Non-Af Amer 95 mL/min >60 [facility] Comment on above: Non- GFR Calc Platelets bldOrdered By: Mervat Dillard on 06-13-2023 Platelets (Bld) [#/Vol] 112 10*3/uL 150-450 [facility] Serum or plasma albumin celina urement (mass/volume)Ordered By: Jonathan Dillard on 06-13-2023 Albumin [Mass/Vol] 2.6 g/dL 3.2-5.0 [facility] Serum or plasma albumin/glob ulin mass ratioOrdered By: Jonathan Dillard on 06-13-2023 Albumin/Globulin [Mass ratio] 0.6 {ratio} 0.9-2.4 [facility] Serum or plasma calcium celina urement (mass/volume)Ordered By: Jonathan Dillard on 06-13-2023 Calcium [Mass/Vol] 8.9 mg/dL 8.5-10.1 [facility] Serum or plasma creatinine m easurement (mass/volume)Ordered By: Jonathan Dillard on 06-13-2023 Creatinine [Mass/Vol] 0.65 mg/dL 0.55-1.02 [facility] Comment on above: The validity of the calculated GFR & GFRAA in patients over 70 years has not been determined. Clinical correlation is essential. Serum or plasma urea nitroge n measurement (mass/volume)Ordered By: Jonathan Dillard on 06-13-2023 Urea nitrogen [Mass/Vol] 20 mg/dL 7-18 [facility] Thin prep Papanicolaou smear with manual screeningOrdered By: Jonathan Dillard on 06-13-2023 Thin prep Papanicolaou smear with manual screening 11 U/L 15-37 [facility] Thin prep Papanicolaou smear with manual screening 0 5-15 [facility] Absolute lymphocyte countOrd ered By: Delfin Jeffries on 05-04-2023 Lymphocytes Auto (Unsp spec) [#/Vol] 0.78 10*3/uL 0.83-4.51 [facility] Basophil percentageOrdered B y: Delfin Jeffries on 05-04-2023 Basophils/100 WBC (Bld) 0.2 % 0-1 [facility] Bilirubin [Mass/Vol] 0.40 mg/dL 0.20-1.00 [facility] Comment on above: For patients on eltr ombopag therapy, use of [place] TBIL is not recommended. Chloride [Moles/Vol] 104 mmol/L 98-107 [facility] Eosinophils/100 WBC (Bld) 1.3 % 0-5 [facility] Glucose [Mass/Vol] 175 mg/dL 74-106 [facility] Comment on above: Fasting Glucose resu lt greater than or equal to 126 mg/dL suggests DIABETES MELLITUS per A.D.A. criteria. LDH [Catalytic activity/Vol] 125 U/L 84-246 [facility] Neutrophils (Bld) [#/Vol] 4.2 10*3/uL 2.0-7.7 [facility] Neutrophils/100 WBC (Bld) 79.1 % 47-70 [facility] Potassium [Moles/Vol] 4.0 mmol/L 3.5-5.1 [facility] Protein [Mass/Vol] 7.5 g/dL 6.4-8.2 [facility] Sodium [Moles/Vol] 144 mmol/L 136-145 [facility] WBC (Bld) [#/Vol] 5.3 10*3/uL 4.4-11.0 [facility] Blood erythrocytes count (nu mber/volume)Ordered By: Delfin Jeffries on 05-04-2023 RBC (Bld) [#/Vol] 3.49 10*6/uL 4.2-5.4 [facility] Blood hemoglobin measurement (mass/volume)Ordered By: Delfin Jeffries on 05-04-2023 Hemoglobin (Bld) [Mass/Vol] 10.2 g/dL 12.0-15.0 [facility] Blood lymphocytes/100 leukoc ytesOrdered By: Delfin Jeffries on 05-04-2023 Lymphocytes/100 WBC (Bld) 14.7 % 19-41 [facility] Blood monocytes/100 leukocyt esOrdered By: Delfin Jeffries on 05-04-2023 Monocytes/100 WBC (Bld) 4.3 % 0-10 [facility] Blood platelet mean volumeOr dered By: Delfin Jeffries on 05-04-2023 Platelet mean volume (Bld) [Entitic vol] 8.6 fL 6.2-12.0 [facility] Determination of erythrocyte mean corpuscular volume (MCV)Ordered By: Delfin Jeffries on 05-04-2023 MCV (RBC) [Entitic vol] 99.7 fL 81-99 [facility] Hematocrit Auto (Bld) [Volum e fraction]Ordered By: Delfin Jeffries on 05-04-2023 Hematocrit (Bld) [Volume fraction] 34.8 % 37-47 [facility] Hemoglobin in reticulocytes (mass per reticulocyte)Ordered By: Delfin Jeffries on 05-04-2023 Hemoglobin (Reticulocytes) [Entitic mass] 31.0 pg 30-35 [facility] Iron measurement (mass/mass) Ordered By: Delfin Jeffries on 05-04-2023 Iron (Unsp spec) [Mass/Mass] 42 ug/dL 50-170 [facility] Laboratory - Chemistry and C hemistry - challengeOrdered By: Delfin Jeffries on 05-04-2023 ALP [Catalytic activity/Vol] 84 U/L 45-117 [facility] ALT [Catalytic activity/Vol] 21 U/L 13-56 [facility] CO2 [Moles/Vol] 39.0 mmol/L 21.0-32.0 [facility] Globulin (S) [Mass/Vol] 4.5 g/dL 2.2-4.2 [facility] Urea nitrogen/Creatinine [Mass ratio] 32.1 mg/mg 10-20 [facility] Laboratory - Hematology and Cell countsOrdered By: Delfin Jeffries on 05-04-2023 Erythrocyte distribution width (RBC) [Entitic vol] 51.9 fL 35.1-43.9 [facility] Erythrocyte distribution width (RBC) [Ratio] 14.6 % 11.6-14.6 [facility] Immature granulocytes/100 WBC (Bld) 0.400 % 0.0-0.9 [facility] Comment on above: IG% - Immature Granu locytes (promyelocytes, myelocytes and metamyelocytes) > 1% indicates that a LEFT SHIFT is Present. MCH (RBC) [Entitic mass] 29.2 pg 27.0-32.0 [facility] Nucleated RBC/100 WBC (Bld) [Ratio] 0 % 0-5 [facility] MCHC Auto (RBC) [Mass/Vol]Or dered By: Delfin Jeffries on 05-04-2023 MCHC (RBC) [Mass/Vol] 29.3 g/dL 32-36 [facility] No Panel InformationOrdered By: Delfin Jeffries on 05-04-2023 Estimated GFR (MDRD) Amer 103 mL/min >60 [facility] Comment on above: GFR Calc Estimated GFR (MDRD) Non-Af Amer 85 mL/min >60 [facility] Comment on above: Non- GFR Calc Immature Reticulocyte Fraction 26.90 % 3.00-15.90 [facility] Reticulocyte Count 2.39 % 0.5-1.5 [facility] Total Iron Binding Capacity 197 ug/dL 250-450 [facility] Platelets bldOrdered By: Luciano Jeffries on 05-04-2023 Platelets (Bld) [#/Vol] 107 10*3/uL 150-450 [facility] Serum or plasma albumin celina urement (mass/volume)Ordered By: Delfin Jeffries on 05-04-2023 Albumin [Mass/Vol] 3.0 g/dL 3.2-5.0 [facility] Serum or plasma albumin/glob ulin mass ratioOrdered By: Delfin Jeffries on 05-04-2023 Albumin/Globulin [Mass ratio] 0.7 {ratio} 0.9-2.4 [facility] Serum or plasma calcium celina urement (mass/volume)Ordered By: Delfin Jeffries on 05-04-2023 Calcium [Mass/Vol] 8.7 mg/dL 8.5-10.1 [facility] Serum or plasma creatinine m easurement (mass/volume)Ordered By: Delfin Benson on 05-04-2023 Creatinine [Mass/Vol] 0.72 mg/dL 0.55-1.02 [facility] Comment on above: The validity of the calculated GFR & GFRAA in patients over 70 years has not been determined. Clinical correlation is essential. Serum or plasma ferritin carter surement (mass/volume)Ordered By: Delfin Jeffries on 05-04-2023 Ferritin [Mass/Vol] 192 ng/mL 8-252 [facility] Serum or plasma iron saturat ion measurement (mass fraction)Ordered By: Delfin Kelley on 05-04-2023 Iron saturation [Mass fraction] 21.3 % 15.0-55.0 [facility] Serum or plasma urea nitroge n measurement (mass/volume)Ordered By: [facility]elfin [facility] on 05-04-2023 Urea nitrogen [Mass/Vol] 23 mg/dL 7-18 [facility] Thin prep Papanicolaou smear with manual screeningOrdered By: Delfin Jeffries on 05-04-2023 Thin prep Papanicolaou smear with manual screening 16 U/L 15-37 [facility] Thin prep Papanicolaou smear with manual screening 1 5-15 [facility] Absolute lymphocyte countOrd ered By: Dr. Vela on 04-19-2023 Lymphocytes Auto (Unsp spec) [#/Vol] 0.71 10*3/uL 0.83-4.51 [facility] Basophil percentageOrdered B y: Dr. Vela on 04-19-2023 Basophil percentage 0 SEEN /hpf 0-5 [facility] Basophils/100 WBC (Bld) 0.2 % 0-1 [facility] Bilirubin [Mass/Vol] 0.40 mg/dL 0.20-1.00 [facility] Comment on above: For patients on eltr ombopag therapy, use of [place] TBIL is not recommended. Chloride [Moles/Vol] 102 mmol/L 98-107 [facility] Eosinophils/100 WBC (Bld) 0.9 % 0-5 [facility] Glucose [Mass/Vol] 108 mg/dL 74-106 [facility] Comment on above: Fasting Glucose resu lt from 100 to 125 mg/dL suggests IMPAIRED HOMEOSTASIS per A.D.A. criteria. Neutrophils (Bld) [#/Vol] 5.2 10*3/uL 2.0-7.7 [facility] Neutrophils/100 WBC (Bld) 81.7 % 47-70 [facility] Potassium [Moles/Vol] 3.9 mmol/L 3.5-5.1 [facility] Protein [Mass/Vol] 7.7 g/dL 6.4-8.2 [facility] Sodium [Moles/Vol] 146 mmol/L 136-145 [facility] WBC (Bld) [#/Vol] 6.3 10*3/uL 4.4-11.0 [facility] Bilirubin Test strip Ql (U)O rdered By: Dr. Vela on 04-19-2023 Bilirubin Ql (U) Negative Negative [facility] Blood erythrocytes count (nu mber/volume)Ordered By: Dr. Vela on 04-19-2023 RBC (Bld) [#/Vol] 3.35 10*6/uL 4.2-5.4 [facility] Blood hemoglobin measurement (mass/volume)Ordered By: Dr. Vela on 04-19-2023 Hemoglobin (Bld) [Mass/Vol] 9.6 g/dL 12.0-15.0 [facility] Blood lymphocytes/100 leukoc ytesOrdered By: Dr. Vela on 04-19-2023 Lymphocytes/100 WBC (Bld) 11.2 % 19-41 [facility] Blood monocytes/100 leukocyt esOrdered By: Dr. Vela on 04-19-2023 Monocytes/100 WBC (Bld) 5.5 % 0-10 [facility] Blood platelet mean volumeOr dered By: Dr. Vela on 04-19-2023 Platelet mean volume (Bld) [Entitic vol] 9.5 fL 6.2-12.0 [facility] Determination of erythrocyte mean corpuscular volume (MCV)Ordered By: Dr. Vela on 04-19-2023 MCV (RBC) [Entitic vol] 98.5 fL 81-99 [facility] Hematocrit Auto (Bld) [Volum e fraction]Ordered By: Dr. Vela on 04-19-2023 Hematocrit (Bld) [Volume fraction] 33.0 % 37-47 [facility] Ketones Test strip Ql (U)Ord ered By: Dr. Vela on 04-19-2023 Ketones Ql (U) Negative Negative [facility] Laboratory - Chemistry and C hemistry - challengeOrdered By: Dr. Vela on 04-19-2023 ALP [Catalytic activity/Vol] 96 U/L 45-117 [facility] ALT [Catalytic activity/Vol] 21 U/L 13-56 [facility] CO2 [Moles/Vol] 41.0 mmol/L 21.0-32.0 [facility] Globulin (S) [Mass/Vol] 4.6 g/dL 2.2-4.2 [facility] Urea nitrogen/Creatinine [Mass ratio] 36.2 mg/mg 10-20 [facility] Laboratory - Hematology and Cell countsOrdered By: Dr. Vela on 04-19-2023 Erythrocyte distribution width (RBC) [Entitic vol] 50.7 fL 35.1-43.9 [facility] Erythrocyte distribution width (RBC) [Ratio] 14.2 % 11.6-14.6 [facility] Immature granulocytes/100 WBC (Bld) 0.500 % 0.0-0.9 [facility] Comment on above: IG% - Immature Granu locytes (promyelocytes, myelocytes and metamyelocytes) > 1% indicates that a LEFT SHIFT is Present. MCH (RBC) [Entitic mass] 28.7 pg 27.0-32.0 [facility] Nucleated RBC/100 WBC (Bld) [Ratio] 0 % 0-5 [facility] MCHC Auto (RBC) [Mass/Vol]Or dered By: Dr. Vela on 04-19-2023 MCHC (RBC) [Mass/Vol] 29.1 g/dL 32-36 [facility] Mucus LM Ql (Urine sed)Order ed By: Dr. Vela on 04-19-2023 Mucus Ql (Urine sed) 0 SEEN /hpf [facility] Nitrite Test strip Ql (U)Ord ered By: Dr. Vela on 04-19-2023 Nitrite Ql (U) Negative Negative [facility] No Panel InformationOrdered By: Dr. Vela on 04-19-2023 Estimated Creatinine Clearance Calc 45.09 ml/min [facility] Estimated GFR (MDRD) Amer 118 mL/min >60 [facility] Comment on above: GFR Calc Estimated GFR (MDRD) Non-Af Amer 97 mL/min >60 [facility] Comment on above: Non- GFR Calc Platelets bldOrdered By: Dr. Vela on 04-19-2023 Platelets (Bld) [#/Vol] 103 10*3/uL 150-450 [facility] Protein Test strip Ql (U)Ord ered By: Dr. Vela on 04-19-2023 Protein Ql (U) Negative Negative [facility] Serum or plasma albumin celina urement (mass/volume)Ordered By: Dr. Vela on 04-19-2023 Albumin [Mass/Vol] 3.1 g/dL 3.2-5.0 [facility] Serum or plasma albumin/glob ulin mass ratioOrdered By: Dr. Vela on 04-19-2023 Albumin/Globulin [Mass ratio] 0.7 {ratio} 0.9-2.4 [facility] Serum or plasma calcium celina urement (mass/volume)Ordered By: Dr. Vela on 04-19-2023 Calcium [Mass/Vol] 9.3 mg/dL 8.5-10.1 [facility] Serum or plasma creatinine m easurement (mass/volume)Ordered By: Dr. Vela on 04-19-2023 Creatinine [Mass/Vol] 0.64 mg/dL 0.55-1.02 [facility] Comment on above: The validity of the calculated GFR & GFRAA in patients over 70 years has not been determined. Clinical correlation is essential. Serum or plasma urea nitroge n measurement (mass/volume)Ordered By: Dr. Vela on 04-19-2023 Urea nitrogen [Mass/Vol] 23 mg/dL 7-18 [facility] Squamous epithelial cells de tection in urine sediment by light microscopyOrdered By: Dr. Vela on 04-19-2023 Epithelial cells.squamous LM Ql (Urine sed) 0 SEEN /hpf 5-10 [facility] Thin prep Papanicolaou smear with manual screeningOrdered By: Dr. Vela on 04-19-2023 Thin prep Papanicolaou smear with manual screening 16 U/L 15-37 [facility] Thin prep Papanicolaou smear with manual screening 3 5-15 [facility] Urine blood detectionOrdered By: Dr. Vela on 04-19-2023 RBC Ql (U) Negative Negative [facility] RBC Ql (U) 0 SEEN /hpf 0-5 [facility] Urine clarityOrdered By: Dr. Vela on 04-19-2023 Clarity (U) Clear Clear [facility] Urine color determinationOrd ered By: Dr. Vela on 04-19-2023 Color (U) Yellow Yellow [facility] Urine glucose detectionOrder ed By: Dr. Vela on 04-19-2023 Glucose Ql (U) Normal mg/dl Normal [facility] Urine leukocyte esterase det ection by dipstickOrdered By: Dr. Vela on 04-19-2023 Leukocyte esterase Test strip Ql (U) Negative Negative [facility] Urine pHOrdered By: Dr. Isaias barkley on 04-19-2023 pH (U) 6.5 [pH] 5.0 - 8.0 [facility] Urine sediment bacteria coun t by microscopy (number/high power field)Ordered By: Dr. Vela on 04-19-2023 Bacteria LM.HPF (Urine sed) [#/Area] 0 /[HPF] None Seen [facility] Urine specific gravity measu rementOrdered By: Dr. Vela on 04-19-2023 Specific gravity (U) [Rel density] 1.010 1.002-1.030 [facility] Urobilinogen Auto test strip Ql (U)Ordered By: Dr. Vela on 04-19-2023 Urobilinogen Ql (U) Normal mg/dl Normal [facility] Culture, urineOrdered By: Sutherland Deperrletty on 04-15-2023 Bacteria identified Cx Nom (U) Presumptive E. coli [facility] Bacteria identified Cx Nom (U) Klebsiella pneumoniae sp pneum [facility] Basophil percentageOrdered B y: Jonathan Dillard on 04-12-2023 Basophil percentage 0-5 SEEN /hpf 0-5 [facility] Bilirubin [Mass/Vol] 0.50 mg/dL 0.20-1.00 [facility] Comment on above: For patients on eltr ombopag therapy, use of [place] TBIL is not recommended. Chloride [Moles/Vol] 102 mmol/L 98-107 [facility] Glucose [Mass/Vol] 122 mg/dL 74-106 [facility] Comment on above: Fasting Glucose resu lt from 100 to 125 mg/dL suggests IMPAIRED HOMEOSTASIS per A.D.A. criteria. Potassium [Moles/Vol] 3.7 mmol/L 3.5-5.1 [facility] Protein [Mass/Vol] 6.9 g/dL 6.4-8.2 [facility] Sodium [Moles/Vol] 145 mmol/L 136-145 [facility] WBC (Bld) [#/Vol] 5.1 10*3/uL 4.4-11.0 [facility] Bilirubin Test strip Ql (U)O rdered By: Jonathan Dillard on 04-12-2023 Bilirubin Ql (U) Negative Negative [facility] Blood erythrocytes count (nu mber/volume)Ordered By: Jonathan Dillard on 04-12-2023 RBC (Bld) [#/Vol] 3.16 10*6/uL 4.2-5.4 [facility] Blood hemoglobin measurement (mass/volume)Ordered By: Jonathan Dillard on 04-12-2023 Hemoglobin (Bld) [Mass/Vol] 8.9 g/dL 12.0-15.0 [facility] Blood platelet mean volumeOr dered By: Jonathan Dillard on 04-12-2023 Platelet mean volume (Bld) [Entitic vol] 9.1 fL 6.2-12.0 [facility] Culture, urineOrdered By: Higuera on 04-12-2023 Bacteria identified Cx Nom (U) Presumptive E. coli [facility] Bacteria identified Cx Nom (U) Klebsiella pneumoniae sp pneum [facility] Determination of erythrocyte mean corpuscular volume (MCV)Ordered By: Jonathan Dillard on 04-12-2023 MCV (RBC) [Entitic vol] 99.7 fL 81-99 [facility] Hematocrit Auto (Bld) [Volum e fraction]Ordered By: Jonathan Dillard on 04-12-2023 Hematocrit (Bld) [Volume fraction] 31.5 % 37-47 [facility] Ketones Test strip Ql (U)Ord ered By: Jonathan Dillard on 04-12-2023 Ketones Ql (U) Negative Negative [facility] Laboratory - Chemistry and C hemistry - challengeOrdered By: Jonathan Dillard on 04-12-2023 ALP [Catalytic activity/Vol] 83 U/L 45-117 [facility] ALT [Catalytic activity/Vol] 20 U/L 13-56 [facility] CO2 [Moles/Vol] 42.0 mmol/L 21.0-32.0 [facility] Globulin (S) [Mass/Vol] 4.1 g/dL 2.2-4.2 [facility] Urea nitrogen/Creatinine [Mass ratio] 34.6 mg/mg 10-20 [facility] Laboratory - Hematology and Cell countsOrdered By: Jonathan Dillard on 04-12-2023 Erythrocyte distribution width (RBC) [Entitic vol] 53.0 fL 35.1-43.9 [facility] Erythrocyte distribution width (RBC) [Ratio] 14.5 % 11.6-14.6 [facility] MCH (RBC) [Entitic mass] 28.2 pg 27.0-32.0 [facility] MCHC Auto (RBC) [Mass/Vol]Or dered By: Jonathan Dillard on 04-12-2023 MCHC (RBC) [Mass/Vol] 28.3 g/dL 32-36 [facility] Mucus LM Ql (Urine sed)Order ed By: Jonathan Dillard on 04-12-2023 Mucus Ql (Urine sed) 0 SEEN /hpf [facility] Nitrite Test strip Ql (U)Ord ered By: Jonathan Dillard on 04-12-2023 Nitrite Ql (U) Negative Negative [facility] No Panel InformationOrdered By: Jonathan Dillard on 04-12-2023 Estimated GFR (MDRD) Amer 112 mL/min >60 [facility] [facility] Comment on above: GFR Calc Estimated GFR (MDRD) Non-Af Amer 93 mL/min >60 [facility] Comment on above: Non- GFR Calc Platelets bldOrdered By: Mervat Dillard on 04-12-2023 Platelets (Bld) [#/Vol] 115 10*3/uL 150-450 [facility] Protein Test strip Ql (U)Ord ered By: Jonathan Dillard on 04-12-2023 Protein Ql (U) Negative Negative [facility] Serum or plasma albumin celina urement (mass/volume)Ordered By: Jonathan Dillard on 04-12-2023 Albumin [Mass/Vol] 2.8 g/dL 3.2-5.0 [facility] Serum or plasma albumin/glob ulin mass ratioOrdered By: Jonathan Dillard on 04-12-2023 Albumin/Globulin [Mass ratio] 0.7 {ratio} 0.9-2.4 [facility] Serum or plasma calcium celina urement (mass/volume)Ordered By: Jonathan Dillard on 04-12-2023 Calcium [Mass/Vol] 9.0 mg/dL 8.5-10.1 [facility] Serum or plasma creatinine m easurement (mass/volume)Ordered By: Jonathan Dillard on 04-12-2023 Creatinine [Mass/Vol] 0.66 mg/dL 0.55-1.02 [facility] Comment on above: The validity of the calculated GFR & GFRAA in patients over 70 years has not been determined. Clinical correlation is essential. Serum or plasma urea nitroge n measurement (mass/volume)Ordered By: Jonathan Dillard on 04-12-2023 Urea nitrogen [Mass/Vol] 23 mg/dL 7-18 [facility] Squamous epithelial cells de tection in urine sediment by light microscopyOrdered By: Jonathan Dillard on 04-12-2023 Epithelial cells.squamous LM Ql (Urine sed) 0-5 SEEN /hpf 5-10 [facility] Thin prep Papanicolaou smear with manual screeningOrdered By: Jonathan Dillard on 04-12-2023 Thin prep Papanicolaou smear with manual screening 14 U/L 15-37 [facility] Thin prep Papanicolaou smear with manual screening 1 5-15 [facility] Urine blood detectionOrdered By: Jonathan Dillard on 04-12-2023 RBC Ql (U) Negative Negative [facility] RBC Ql (U) 0-5 SEEN /hpf 0-5 [facility] Urine clarityOrdered By: Mervat Dillard on 04-12-2023 Clarity (U) Clear Clear [facility] Urine color determinationOrd ered By: Jonathan Dillard on 04-12-2023 Color (U) Yellow Yellow [facility] Urine glucose detectionOrder ed By: Jonathan Dillard on 04-12-2023 Glucose Ql (U) Normal mg/dl Normal [facility] Urine leukocyte esterase det ection by dipstickOrdered By: Jonathan Dillard on 04-12-2023 Leukocyte esterase Test strip Ql (U) 25 /ul Negative [facility] Urine pHOrdered By: Jonathan ramirez on 04-12-2023 pH (U) 5.0 [pH] 5.0 - 8.0 [facility] Urine sediment bacteria coun t by microscopy (number/high power field)Ordered By: Jonathan Dillard on 04-12-2023 Bacteria LM.HPF (Urine sed) [#/Area] 0 /[HPF] None Seen [facility] Urine specific gravity measu rementOrdered By: Jonathan Dillard on 04-12-2023 Specific gravity (U) [Rel density] 1.020 1.002-1.030 [facility] Urobilinogen Auto test strip Ql (U)Ordered By: Jonathan Dillard on 04-12-2023 Urobilinogen Ql (U) Normal mg/dl Normal [facility] Basophil percentageOrdered B y: Jonathan Dillard on 03-28-2023 WBC (Bld) [#/Vol] 4.3 10*3/uL 4.4-11.0 [facility] Blood erythrocytes count (nu mber/volume)Ordered By: Jonathan Dillard on 03-28-2023 RBC (Bld) [#/Vol] 3.38 10*6/uL 4.2-5.4 [facility] Blood hemoglobin measurement (mass/volume)Ordered By: Jonathan Dillard on 03-28-2023 Hemoglobin (Bld) [Mass/Vol] 9.5 g/dL 12.0-15.0 [facility] Blood platelet mean volumeOr dered By: Jonathan Dillard on 03-28-2023 Platelet mean volume (Bld) [Entitic vol] 9.3 fL 6.2-12.0 [facility] Determination of erythrocyte mean corpuscular volume (MCV)Ordered By: Jonathan Dillard on 03-28-2023 MCV (RBC) [Entitic vol] 100.6 fL 81-99 [facility] Hematocrit Auto (Bld) [Volum e fraction]Ordered By: Jonathan Dillard on 03-28-2023 Hematocrit (Bld) [Volume fraction] 34.0 % 37-47 [facility] Laboratory - Hematology and Cell countsOrdered By: Jonathan Dillard on 03-28-2023 Erythrocyte distribution width (RBC) [Entitic vol] 54.0 fL 35.1-43.9 [facility] Erythrocyte distribution width (RBC) [Ratio] 14.7 % 11.6-14.6 [facility] MCH (RBC) [Entitic mass] 28.1 pg 27.0-32.0 [facility] MCHC Auto (RBC) [Mass/Vol]Or dered By: Jonathan Dillard on 03-28-2023 MCHC (RBC) [Mass/Vol] 27.9 g/dL 32-36 [facility] Platelets bldOrdered By: Mervat Dillard on 03-28-2023 Platelets (Bld) [#/Vol] 116 10*3/uL 150-450 [facility] Absolute lymphocyte countOrd ered By: Dr. Jeffries on 03-09-2023 Lymphocytes Auto (Unsp spec) [#/Vol] 0.69 10*3/uL 0.83-4.51 [facility] Basophil percentageOrdered B y: Dr. Jeffries on 03-09-2023 Basophil percentage 3.0 mg/dL 2.5-4.9 [facility] Basophils/100 WBC (Bld) 0.2 % 0-1 [facility] Eosinophils/100 WBC (Bld) 0.9 % 0-5 [facility] LDH [Catalytic activity/Vol] 131 U/L 84-246 [facility] Neutrophils (Bld) [#/Vol] 4.4 10*3/uL 2.0-7.7 [facility] Neutrophils/100 WBC (Bld) 80.2 % 47-70 [facility] WBC (Bld) [#/Vol] 5.5 10*3/uL 4.4-11.0 [facility] Blood erythrocytes count (nu mber/volume)Ordered By: Dr. Jeffries on 03-09-2023 RBC (Bld) [#/Vol] 3.49 10*6/uL 4.2-5.4 [facility] Blood hemoglobin measurement (mass/volume)Ordered By: Dr. Jeffries on 03-09-2023 Hemoglobin (Bld) [Mass/Vol] 9.6 g/dL 12.0-15.0 [facility] Blood lymphocytes/100 leukoc ytesOrdered By: Dr. Jeffries on 03-09-2023 Lymphocytes/100 WBC (Bld) 12.6 % 19-41 [facility] Blood monocytes/100 leukocyt esOrdered By: Dr. Jeffries on 03-09-2023 Monocytes/100 WBC (Bld) 5.7 % 0-10 [facility] Blood platelet mean volumeOr dered By: Dr. Jeffries on 03-09-2023 Platelet mean volume (Bld) [Entitic vol] 9.6 fL 6.2-12.0 [facility] Determination of erythrocyte mean corpuscular volume (MCV)Ordered By: Dr. Jeffries on 03-09-2023 MCV (RBC) [Entitic vol] 97.7 fL 81-99 [facility] Hematocrit Auto (Bld) [Volum e fraction]Ordered By: Dr. Jeffries on 03-09-2023 Hematocrit (Bld) [Volume fraction] 34.1 % 37-47 [facility] Iron measurement (mass/mass) Ordered By: Dr. Jeffries on 03-09-2023 Iron (Unsp spec) [Mass/Mass] 30 ug/dL 50-170 [facility] Laboratory - Chemistry and C hemistry - challengeOrdered By: Dr. Jeffries on 03-09-2023 Cobalamin (Vitamin B12) [Mass/Vol] 669 pg/mL 211-911 [facility] Magnesium [Mass/Vol] 2.0 mg/dL 1.6-2.6 [facility] Laboratory - Hematology and Cell countsOrdered By: Dr. Jeffries on 03-09-2023 Erythrocyte distribution width (RBC) [Entitic vol] 52.1 fL 35.1-43.9 [facility] Erythrocyte distribution width (RBC) [Ratio] 14.6 % 11.6-14.6 [facility] Immature granulocytes/100 WBC (Bld) 0.400 % 0.0-0.9 [facility] Comment on above: IG% - Immature Granu locytes (promyelocytes, myelocytes and metamyelocytes) > 1% indicates that a LEFT SHIFT is Present. MCH (RBC) [Entitic mass] 27.5 pg 27.0-32.0 [facility] Nucleated RBC/100 WBC (Bld) [Ratio] 0 % 0-5 [facility] MCHC Auto (RBC) [Mass/Vol]Or dered By: Dr. Jeffries on 03-09-2023 MCHC (RBC) [Mass/Vol] 28.2 g/dL 32-36 [facility] No Panel InformationOrdered By: Dr. Jeffries on 03-09-2023 Total Iron Binding Capacity 196 ug/dL 250-450 [facility] Platelets bldOrdered By: Dr. Jeffries on 03-09-2023 Platelets (Bld) [#/Vol] 109 10*3/uL 150-450 [facility] Serum or plasma ferritin carter surement (mass/volume)Ordered By: Dr. Jeffries on 03-09-2023 Ferritin [Mass/Vol] 67 ng/mL 8-252 [facility] Serum or plasma iron saturat ion measurement (mass fraction)Ordered By: Dr. Jeffries on 03-09-2023 Iron saturation [Mass fraction] 15.3 % 15.0-55.0 [facility] No Panel InformationOrdered By: Jonathan Dillard on 03-08-2023 CA 125 Antigen 28.1 U/mL 0.0-38.1 [facility] Comment on above: [facility] El ectrochemiluminescence Immunoassay(ECLIA)Values obtained with different assay methods or kits cannotbe used interchangeably. Results cannot be interpreted asabsolute evidence of the presence or absence of malignantdisease.Performed at: [email or web address] - [facility] [id number] Director: Mark Woo PhD, Phone: [phone] Basophil percentageOrdered B y: Jonathan Dillard on 03-04-2023 Chloride [Moles/Vol] 102 mmol/L 98-107 [facility] Glucose [Mass/Vol] 154 mg/dL 74-106 [facility] Comment on above: Fasting Glucose resu lt greater than or equal to 126 mg/dL suggests DIABETES MELLITUS per A.D.A. criteria. Potassium [Moles/Vol] 3.5 mmol/L 3.5-5.1 [facility] Sodium [Moles/Vol] 144 mmol/L 136-145 [facility] Laboratory - Chemistry and C hemistry - challengeOrdered By: Jonathan Dillard on 03-04-2023 CO2 [Moles/Vol] 44.0 mmol/L 21.0-32.0 [facility] Urea nitrogen/Creatinine [Mass ratio] 29.9 mg/mg 10-20 [facility] No Panel InformationOrdered By: Jonathan Dillard on 03-04-2023 Estimated GFR (MDRD) Amer 111 mL/min >60 [facility] Comment on above: GFR Calc Estimated GFR (MDRD) Non-Af Amer 92 mL/min >60 [facility] Comment on above: Non- GFR Calc Serum or plasma calcium celina urement (mass/volume)Ordered By: Jonathan Dillard on 03-04-2023 Calcium [Mass/Vol] 9.0 mg/dL 8.5-10.1 [facility] Serum or plasma creatinine m easurement (mass/volume)Ordered By: Jonathan Dillard on 03-04-2023 Creatinine [Mass/Vol] 0.67 mg/dL 0.55-1.02 [facility] Comment on above: The validity of the calculated GFR & GFRAA in patients over 70 years has not been determined. Clinical correlation is essential. Serum or plasma urea nitroge n measurement (mass/volume)Ordered By: Jonathan Dillard on 03-04-2023 Urea nitrogen [Mass/Vol] 20 mg/dL 7-18 [facility] Thin prep Papanicolaou smear with manual screeningOrdered By: Jonathan Dillard on 03-04-2023 Thin prep Papanicolaou smear with manual screening -2 5-15 [facility] Basophil percentageOrdered B y: Jonathan Dillard on 02-28-2023 Chloride [Moles/Vol] 104 mmol/L 98-107 [facility] Glucose [Mass/Vol] 150 mg/dL 74-106 [facility] Comment on above: Fasting Glucose resu lt greater than or equal to 126 mg/dL suggests DIABETES MELLITUS per A.D.A. criteria. Potassium [Moles/Vol] 3.4 mmol/L 3.5-5.1 [facility] Sodium [Moles/Vol] 144 mmol/L 136-145 [facility] WBC (Bld) [#/Vol] 4.5 10*3/uL 4.4-11.0 [facility] Blood erythrocytes count (nu mber/volume)Ordered By: Jonathan Dillard on 02-28-2023 RBC (Bld) [#/Vol] 3.23 10*6/uL 4.2-5.4 [facility] Blood hemoglobin measurement (mass/volume)Ordered By: Jonathan Dillard on 02-28-2023 Hemoglobin (Bld) [Mass/Vol] 8.9 g/dL 12.0-15.0 [facility] Blood platelet mean volumeOr dered By: Jonathan Dillard on 02-28-2023 Platelet mean volume (Bld) [Entitic vol] 9.3 fL 6.2-12.0 [facility] Determination of erythrocyte mean corpuscular volume (MCV)Ordered By: Jonathan Dillard on 02-28-2023 MCV (RBC) [Entitic vol] 97.5 fL 81-99 [facility] Hematocrit Auto (Bld) [Volum e fraction]Ordered By: Jonathan Dillard on 02-28-2023 Hematocrit (Bld) [Volume fraction] 31.5 % 37-47 [facility] Laboratory - Chemistry and C hemistry - challengeOrdered By: Jonathan Dillard on 02-28-2023 CO2 [Moles/Vol] 41.0 mmol/L 21.0-32.0 [facility] Urea nitrogen/Creatinine [Mass ratio] 26.5 mg/mg 10-20 [facility] Laboratory - Hematology and Cell countsOrdered By: Jonathan Dillard on 02-28-2023 Erythrocyte distribution width (RBC) [Entitic vol] 51.0 fL 35.1-43.9 [facility] Erythrocyte distribution width (RBC) [Ratio] 14.2 % 11.6-14.6 [facility] MCH (RBC) [Entitic mass] 27.6 pg 27.0-32.0 [facility] MCHC Auto (RBC) [Mass/Vol]Or dered By: Jonathan Dillard on 02-28-2023 MCHC (RBC) [Mass/Vol] 28.3 g/dL 32-36 [facility] No Panel InformationOrdered By: Jonathan Dillard on 02-28-2023 Estimated GFR (MDRD) Amer 125 mL/min >60 [facility] Comment on above: GFR Calc Estimated GFR (MDRD) Non-Af Amer 104 mL/min >60 [facility] Comment on above: Non- GFR Calc Platelets bldOrdered By: Mervat Dillard on 02-28-2023 Platelets (Bld) [#/Vol] 130 10*3/uL 150-450 [facility] Serum or plasma calcium celina urement (mass/volume)Ordered By: Jonathan Dillard on 02-28-2023 Calcium [Mass/Vol] 8.9 mg/dL 8.5-10.1 [facility] Serum or plasma creatinine m easurement (mass/volume)Ordered By: Jonathan Dillard on 02-28-2023 Creatinine [Mass/Vol] 0.60 mg/dL 0.55-1.02 [facility] Comment on above: The validity of the calculated GFR & GFRAA in patients over 70 years has not been determined. Clinical correlation is essential. Serum or plasma urea nitroge n measurement (mass/volume)Ordered By: Jonathan Dillard on 02-28-2023 Urea nitrogen [Mass/Vol] 16 mg/dL 7-18 [facility] Thin prep Papanicolaou smear with manual screeningOrdered By: Jonathan Dillard on 02-28-2023 Thin prep Papanicolaou smear with manual screening -1 5-15 [facility] Absolute lymphocyte countOrd ered By: Dr. Jaime on 02-25-2023 Lymphocytes Auto (Unsp spec) [#/Vol] 0.74 10*3/uL 0.83-4.51 [facility] Basophil percentageOrdered B y: Dr. Jaime on 02-25-2023 Basophils/100 WBC (Bld) 0.2 % 0-1 [facility] Eosinophils/100 WBC (Bld) 1.2 % 0-5 [facility] Neutrophils (Bld) [#/Vol] 4.0 10*3/uL 2.0-7.7 [facility] Neutrophils/100 WBC (Bld) 79.1 % 47-70 [facility] WBC (Bld) [#/Vol] 5.1 10*3/uL 4.4-11.0 [facility] Bilirubin [Mass/Vol] 0.40 mg/dL 0.20-1.00 [facility] Comment on above: For patients on eltr ombopag therapy, use of [place] TBIL is not recommended. Chloride [Moles/Vol] 106 mmol/L 98-107 [facility] Glucose [Mass/Vol] 106 mg/dL 74-106 [facility] Comment on above: Fasting Glucose resu lt from 100 to 125 mg/dL suggests IMPAIRED HOMEOSTASIS per A.D.A. criteria. Potassium [Moles/Vol] 4.3 mmol/L 3.5-5.1 [facility] Protein [Mass/Vol] 7.1 g/dL 6.4-8.2 [facility] Sodium [Moles/Vol] 142 mmol/L 136-145 [facility] Blood erythrocytes count (nu mber/volume)Ordered By: Dr. Jaime on 02-25-2023 RBC (Bld) [#/Vol] 3.46 10*6/uL 4.2-5.4 [facility] Blood hemoglobin measurement (mass/volume)Ordered By: Dr. Jaime on 02-25-2023 Hemoglobin (Bld) [Mass/Vol] 9.5 g/dL 12.0-15.0 [facility] Blood lymphocytes/100 leukoc ytesOrdered By: Dr. Jaime on 02-25-2023 Lymphocytes/100 WBC (Bld) 14.7 % 19-41 [facility] Blood monocytes/100 leukocyt esOrdered By: Dr. Jaime on 02-25-2023 Monocytes/100 WBC (Bld) 4.4 % 0-10 [facility] Blood platelet mean volumeOr dered By: Dr. Jaime on 02-25-2023 Platelet mean volume (Bld) [Entitic vol] 8.7 fL 6.2-12.0 [facility] COVID-19 virus antigen assay Ordered By: Dr. Jaime on 02-25-2023 SARS-CoV-2 (COVID-19) Ag IA.rapid Ql (Resp) [facility] Determination of erythrocyte mean corpuscular volume (MCV)Ordered By: Dr. Jaime on 02-25-2023 MCV (RBC) [Entitic vol] 98.3 fL 81-99 [facility] Hematocrit Auto (Bld) [Volum e fraction]Ordered By: Dr. Jaime on 02-25-2023 Hematocrit (Bld) [Volume fraction] 34.0 % 37-47 [facility] Laboratory - Chemistry and C hemistry - challengeOrdered By: Dr. Jaime on 02-25-2023 ALP [Catalytic activity/Vol] 69 U/L 45-117 [facility] ALT [Catalytic activity/Vol] 23 U/L 13-56 [facility] CO2 [Moles/Vol] 34.0 mmol/L 21.0-32.0 [facility] Globulin (S) [Mass/Vol] 4.5 g/dL 2.2-4.2 [facility] Urea nitrogen/Creatinine [Mass ratio] 27.0 mg/mg 10-20 [facility] Laboratory - Hematology and Cell countsOrdered By: Dr. Jaime on 02-25-2023 Erythrocyte distribution width (RBC) [Entitic vol] 52.0 fL 35.1-43.9 [facility] Erythrocyte distribution width (RBC) [Ratio] 14.5 % 11.6-14.6 [facility] Immature granulocytes/100 WBC (Bld) 0.400 % 0.0-0.9 [facility] Comment on above: IG% - Immature Granu locytes (promyelocytes, myelocytes and metamyelocytes) > 1% indicates that a LEFT SHIFT is Present. MCH (RBC) [Entitic mass] 27.5 pg 27.0-32.0 [facility] Nucleated RBC/100 WBC (Bld) [Ratio] 0 % 0-5 [facility] Laboratory - Microbiology an d Antimicrobial susceptibilityOrdered By: Dr. Monique on 02-25-2023 Bacteria identified Cx Nom (Bld) No growth in 5 days. [facility] MCHC Auto (RBC) [Mass/Vol]Or dered By: Dr. Jaime on 02-25-2023 MCHC (RBC) [Mass/Vol] 27.9 g/dL 32-36 [facility] No Panel InformationOrdered By: Dr. Jaime on 02-25-2023 Estimated Creatinine Clearance Calc 53.04 ml/min [facility] Estimated GFR (MDRD) Amer 84 mL/min >60 [facility] Comment on above: GFR Calc Estimated GFR (MDRD) Non-Af Amer 69 mL/min >60 [facility] Comment on above: Non- GFR Calc Platelets bldOrdered By: Dr. Jaime on 02-25-2023 Platelets (Bld) [#/Vol] 146 10*3/uL 150-450 [facility] Serum or plasma albumin celina urement (mass/volume)Ordered By: Dr. Jaime on 02-25-2023 Albumin [Mass/Vol] 2.6 g/dL 3.2-5.0 [facility] Serum or plasma albumin/glob ulin mass ratioOrdered By: Dr. Jaime on 02-25-2023 Albumin/Globulin [Mass ratio] 0.6 {ratio} 0.9-2.4 [facility] Serum or plasma calcium celina urement (mass/volume)Ordered By: Dr. Jaime on 02-25-2023 Calcium [Mass/Vol] 8.7 mg/dL 8.5-10.1 [facility] Serum or plasma creatinine m easurement (mass/volume)Ordered By: Dr. Jaime on 02-25-2023 Creatinine [Mass/Vol] 0.85 mg/dL 0.55-1.02 [facility] Comment on above: The validity of the calculated GFR & GFRAA in patients over 70 years has not been determined. Clinical correlation is essential. Serum or plasma urea nitroge n measurement (mass/volume)Ordered By: Dr. Jaime on 02-25-2023 Urea nitrogen [Mass/Vol] 23 mg/dL 7-18 [facility] Thin prep Papanicolaou smear with manual screeningOrdered By: Dr. Jaime on 02-25-2023 Thin prep Papanicolaou smear with manual screening 20 U/L 15-37 [facility] Thin prep Papanicolaou smear with manual screening 2 5-15 [facility] Glucose Glucometer (BldC) [M ass/Vol]Ordered By: Dr. Jaime on 02-23-2023 Glucose [Mass/Vol] 136 mg/dL 74-106 [facility] Comment on above: MANAGEMENT OF PATIEN T CARE PER NURSING PROTOCOL Blood manual differential co mment interpretation (narrative result)Ordered By: Dr. Jaime on 02-22-2023 Manual differential comment Ajit (Bld) [Interp] SCANNED [facility] Comment on above: LYMPHOPENIA Clostridium difficile detect ion by polymerase chain reactionOrdered By: Dr. Banks on 02-22-2023 C. difficile DNA ISA+probe Ql (Unsp spec) [facility] Base excessOrdered By: Dr. Joshua greenfield on 02-21-2023 Base excess Calc (BldV) [Moles/Vol] 12 mmol/L -2-2 [facility] Basophil percentageOrdered B y: Dr. Jaime on 02-21-2023 Basophil percentage 36.1 mmol/L 22-26 [facility] Basophils/100 WBC (Bld) 98 % 95-99 [facility] Blood platelet adequacy dete ction by light microscopyOrdered By: Dr. Padron on 02-21-2023 Platelets LM Ql (Bld) SLT DEC ADEQ [facility] CO2 (BldA) [Partial pressure ]Ordered By: Dr. Jaime on 02-21-2023 CO2 (Bld) [Partial pressure] 52.0 mm[Hg] 35-45 [facility] Culture, urineOrdered By: Dr Che Monique on 02-21-2023 Bacteria identified Cx Nom (U) Culture exhibits no growth. [facility] No Panel InformationOrdered By: Dr. Jaime on 02-21-2023 Bedside Blood Gas PEEP 7 [facility] Bedside Blood Gas Pressure Support 7 [facility] Blood Gas Oxygen Percent 50 [facility] Blood Gas Sample Site R Brach [facility] Blood Gas Specimen Type ART [facility] Blood Gas Total CO2 38 mmol/L [facility] Blood Gas Vent Mode CPAP/PS [facility] Oxygen (BldA) [Partial press ure]Ordered By: Dr. Jaime on 02-21-2023 Oxygen (Bld) [Partial pressure] 99 mmHG 75-100 [facility] Review by pathologistOrdered By: Dr. Padron on 02-21-2023 Pathologist review Ajit (Unsp spec) [Interp] Reviewed [facility] Comment on above: Previous reported re sult: March bernarda Edited by: RGOOD on 02/23/23:1043Pancytopenia.Leukopenia Normocytic anemia.Mild ThrombocytopeniaClinical correlation necessary.Blas Carrillo M.D. 02/23/23 AMENDED REPORT 02/23/23 1043 PATH REV previously reported as: Uyen menchaca Vancomycin troughOrdered By: Dr. Padron on 02-21-2023 Vancomycin trough [Mass/Vol] 25.5 ug/mL 5.0-15.0 [facility] Comment on above: VANCOMYCIN STANDARED DRUG THERAPY TROUGH LEVEL: 5.0 - 15.0 mg/L VANCOMYCIN HIGH INTENSITY THERAPY TROUGH LEVEL: 15.0 - 20.0 mg/L High Intensity therapy recommended for serious lifethreatening infections include:- Ejvudppsef-Nvprikvtaptd-Rvdlyyiyr (Ventilator/Healtcare Associated)-Sepsis PLEASE CONTACT PHARMACY SERVICES (#1613) FOR INTERPRETATIONOF RESULTS. pH measurementOrdered By: Dr Che Jaime on 02-21-2023 pH (Unsp spec) 7.45 [pH] 7.35-7.45 [facility] Assessment of wrist artery p atency prior to arterial punctureOrdered By: Dr. Padron on 02-20-2023 Arterial patency Wrist artery --pre arterial puncture Positive [facility] Basophil percentageOrdered B y: Dr. Monique on 02-20-2023 Triglyceride [Mass/Vol] 141 mg/dL <199 [facility] Comment on above: The drugs N-Acetylcy steine and Metamizole may falsely depress this assay.Serum Triglycerides Reference Interval Normal <150 mg/dL Borderline high 150 - 199 mg/dL High 200 - 499 mg/dL Very High > or = 500 mg/dL Laboratory - Chemistry and C hemistry - challengeOrdered By: Dr. Monique on 02-20-2023 CK [Catalytic activity/Vol] 26 U/L 26-192 [facility] No Panel InformationOrdered By: Dr. Padron on 02-20-2023 Blood Gas Respiration Rate 15 [facility] Oxygen Delivery Device Adult Vent [facility] Basophil percentageOrdered B y: Dr. Padron on 02-19-2023 Basophil percentage 3.6 mg/dL 2.5-4.9 [facility] Laboratory - Chemistry and C hemistry - challengeOrdered By: Dr. Padron on 02-19-2023 Magnesium [Mass/Vol] 2.0 mg/dL 1.6-2.6 [facility] No Panel InformationOrdered By: Dr. Padron on 02-19-2023 Bld Gas Crit Called To/Read Back By Yes [facility] Blood Gas Notified Amanda MONIQUE [facility] Blood Gas Tidal Volume 325 [facility] Laboratory - Hematology and Cell countsOrdered By: Dr. Resendiz on 02-18-2023 Anisocytosis Ql (Bld) 1+ [facility] No Panel InformationOrdered By: Dr. Padron on 02-18-2023 Blood Gas Notified Time 1716 [facility] No Panel InformationOrdered By: Dr. Monique on 02-18-2023 Miscellaneous Test See comment [facility] Comment on above: TEST RESULT LIMITSRe spiratory [...] Detected Not Detected __ TESTING PERFORMED AT [facility]. ORIGINAL REPORT ON FILE IN LAB CONTAINS ADDITIONAL TEST SITE INFORMATION. No Panel InformationOrdered By: Dr. Resendiz on 02-18-2023 Thyroid Stimulating Hormone (TSH) 0.74 uIU/mL 0.358-3.74 [facility] Methicillin-Resist S.aureus DNA PCR Positive Negative [facility] Serum procalcitonin measurem entOrdered By: Dr. Resendiz on 02-18-2023 Procalcitonin [Mass/Vol] 0.13 ng/mL 0.00-0.09 [facility] Comment on above: A procalcitonin [...] Auto (Unsp spec) [#/Vol] 0.69 10*3/uL 0.83-4.51 [facility] Assessment of wrist artery p atency prior to arterial punctureOrdered By: Dr. Resendiz on 02-17-2023 Arterial patency Wrist artery --pre arterial puncture Positive [facility] Base excessOrdered By: Dr. Deepika hernandez on 02-17-2023 Base excess Calc (BldV) [Moles/Vol] 26 mmol/L -2-2 [facility] Basophil percentageOrdered B y: Dr. Resendiz on 02-17-2023 Basophil percentage 51.8 mmol/L 22-26 [facility] Basophils/100 WBC (Bld) 88 % 95-99 [facility] Basophil percentageOrdered B y: Dr. Tsai on 02-17-2023 Basophil percentage 0 SEEN /hpf 0-5 [facility] Basophils/100 WBC (Bld) 0.4 % 0-1 [facility] Bilirubin [Mass/Vol] 0.50 mg/dL 0.20-1.00 [facility] Comment on above: For patients on eltr ombopag therapy, use of Dimension [place] TBIL is not recommended. Chloride [Moles/Vol] 102 mmol/L 98-107 [facility] Eosinophils/100 WBC (Bld) 0.2 % 0-5 [facility] Glucose [Mass/Vol] 238 mg/dL 74-106 [facility] Comment on above: Glucose result great er than or equal to 200 mg/dLsuggests DIABETES MELLITUS per A.D.A. criteria. Neutrophils (Bld) [#/Vol] 9.1 10*3/uL 2.0-7.7 [facility] Neutrophils/100 WBC (Bld) 87.0 % 47-70 [facility] Potassium [Moles/Vol] 4.1 mmol/L 3.5-5.1 [facility] Protein [Mass/Vol] 7.6 g/dL 6.4-8.2 [facility] Sodium [Moles/Vol] 145 mmol/L 136-145 [facility] WBC (Bld) [#/Vol] 10.5 10*3/uL 4.4-11.0 [facility] Bilirubin Test strip Ql (U)O rdered By: Dr. Tsai on 02-17-2023 Bilirubin Ql (U) Negative Negative [facility] Blood erythrocytes count (nu mber/volume)Ordered By: Dr. Tsai on 02-17-2023 RBC (Bld) [#/Vol] 3.69 10*6/uL 4.2-5.4 [facility] Blood hemoglobin measurement (mass/volume)Ordered By: Dr. Tsai on 02-17-2023 Hemoglobin (Bld) [Mass/Vol] 10.1 g/dL 12.0-15.0 [facility] Blood lymphocytes/100 leukoc ytesOrdered By: Dr. Tsai on 02-17-2023 Lymphocytes/100 WBC (Bld) 6.6 % 19-41 [facility] Blood monocytes/100 leukocyt esOrdered By: Dr. Tsai on 02-17-2023 Monocytes/100 WBC (Bld) 3.6 % 0-10 [facility] Blood platelet mean volumeOr dered By: Dr. Tsai on 02-17-2023 Platelet mean volume (Bld) [Entitic vol] 8.4 fL 6.2-12.0 [facility] CO2 (BldA) [Partial pressure ]Ordered By: Dr. Resendiz on 02-17-2023 CO2 (Bld) [Partial pressure] 96.6 mm[Hg] 35-45 [facility] Determination of erythrocyte mean corpuscular volume (MCV)Ordered By: Dr. Tsai on 02-17-2023 MCV (RBC) [Entitic vol] 101.1 fL 81-99 [facility] Hematocrit Auto (Bld) [Volum e fraction]Ordered By: Dr. Tsai on 02-17-2023 Hematocrit (Bld) [Volume fraction] 37.3 % 37-47 [facility] Hyaline casts LM.LPF (Urine sed) [#/Area]Ordered By: Dr. Tsai on 02-17-2023 Hyaline casts (Urine sed) [#/Area] 0 /[LPF] 0-5 [facility] Ketones Test strip Ql (U)Ord ered By: Dr. Tsai on 02-17-2023 Ketones Ql (U) Negative Negative [facility] Laboratory - Chemistry and C hemistry - challengeOrdered By: Dr. Tsai on 02-17-2023 ALP [Catalytic activity/Vol] 99 U/L 45-117 [facility] ALT [Catalytic activity/Vol] 26 U/L 13-56 [facility] CO2 [Moles/Vol] 45.0 mmol/L 21.0-32.0 [facility] Globulin (S) [Mass/Vol] 4.7 g/dL 2.2-4.2 [facility] Urea nitrogen/Creatinine [Mass ratio] 36.2 mg/mg 10-20 [facility] Laboratory - Chemistry and C hemistry - challengeOrdered By: Dr. Resendiz on 02-17-2023 Natriuretic peptide B (Bld) [Mass/Vol] 132.9 pg/mL 0-100 [facility] Laboratory - Drug toxicology Ordered By: Dr. Tsai on 02-17-2023 Amphetamines Ql (U) Negative <1000 ng/mL [facility] Benzodiazepines Ql (U) Negative < 200 ng/mL W [facility] Cannabinoids Screen Ql (U) Negative < 50 ng/mL [facility] Cocaine Ql (U) Negative < 300 ng/mL [facility] Opiates Ql (U) Negative < 300 ng/mL [facility] Laboratory - Hematology and Cell countsOrdered By: Dr. Tsai on 02-17-2023 Erythrocyte distribution width (RBC) [Entitic vol] 55.7 fL 35.1-43.9 [facility] Erythrocyte distribution width (RBC) [Ratio] 15.0 % 11.6-14.6 [facility] Immature granulocytes/100 WBC (Bld) 2.200 % 0.0-0.9 [facility] Comment on above: IG% - Immature Granu locytes (promyelocytes, myelocytes and metamyelocytes) > 1% indicates that a LEFT SHIFT is Present. MCH (RBC) [Entitic mass] 27.4 pg 27.0-32.0 [facility] Nucleated RBC/100 WBC (Bld) [Ratio] 0.2 % 0-5 [facility] MCHC Auto (RBC) [Mass/Vol]Or dered By: Dr. Tsai on 02-17-2023 MCHC (RBC) [Mass/Vol] 27.1 g/dL 32-36 [facility] Mucus LM Ql (Urine sed)Order ed By: Dr. Tsai on 02-17-2023 Mucus Ql (Urine sed) 0 SEEN /hpf [facility] Nitrite Test strip Ql (U)Ord ered By: Dr. Tsai on 02-17-2023 Nitrite Ql (U) Negative Negative [facility] No Panel InformationOrdered By: Dr. Resendiz on 02-17-2023 Bedside Blood Gas PEEP 5 [facility] Bld Gas Crit Called To/Read Back By Yes [facility] Blood Gas Notified Time 2245 [facility] Blood Gas Notified Whom ED [facility] Blood Gas Oxygen Percent 60 [facility] Blood Gas Respiration Rate 16 [facility] Blood Gas Sample Site L RADIAL [facility] Blood Gas Specimen Type ART [facility] Blood Gas Tidal Volume 450 [facility] Blood Gas Total CO2 > 50 mmol/L [facility] Blood Gas Vent Mode AC/VC [facility] Oxygen Delivery Device Vent [facility] No Panel InformationOrdered By: Dr. Tsai on 02-17-2023 Ethyl Alcohol Level < 3.0 mg/dL [facility] Comment on above: The serum:whole bloo d ethanol ratio is approximately 1.14and varies slightly with hematocrit. Medical Alcohol reference interval and critical value innon-tolerant individuals; 50 - 100 Impairment 100 Intoxication 100 - 250 Severe Poisoning 250 - 400 Deep/possible fatal coma MDMA (Ecstasy) Screen Negative < 500 ng/mL [facility] Urine Barbiturates Screen Negative < 200 ng/mL [facility] Urine Drug Screen Comment [facility] Comment on above: CONFIRMATORY TESTING [...] Methadone Screen Negative < 300 ng/mL W [facility] Estimated Creatinine Clearance Calc 45.09 ml/min [facility] Estimated GFR (MDRD) Amer 118 mL/min >60 [facility] Comment on above: GFR Calc Estimated GFR (MDRD) Non-Af Amer 98 mL/min >60 [facility] Comment on above: Non- GFR Calc Troponin I High Sensitivity 13 pg/mL 3.0-54.0 [facility] Comment on above: Please Note: New Rosalie t Units and Gender Specific Reference Ranges. For more information see Policy Stat Procedure [place] High Sensitivity Troponin (TNIH) and attachments. Oxygen (BldA) [Partial press ure]Ordered By: Dr. Resendiz on 02-17-2023 Oxygen (Bld) [Partial pressure] 64 mmHG 75-100 [facility] Platelets bldOrdered By: Dr. Tsai on 02-17-2023 Platelets (Bld) [#/Vol] 163 10*3/uL 150-450 [facility] Protein Test strip Ql (U)Ord ered By: Dr. Tsai on 02-17-2023 Protein Ql (U) 100 mg/dl Negative [facility] Serum or plasma albumin celina urement (mass/volume)Ordered By: Dr. Tsai on 02-17-2023 Albumin [Mass/Vol] 2.9 g/dL 3.2-5.0 [facility] Serum or plasma albumin/glob ulin mass ratioOrdered By: Dr. Tsai on 02-17-2023 Albumin/Globulin [Mass ratio] 0.6 {ratio} 0.9-2.4 [facility] Serum or plasma calcium celina urement (mass/volume)Ordered By: Dr. Tsai on 02-17-2023 Calcium [Mass/Vol] 8.9 mg/dL 8.5-10.1 [facility] Serum or plasma creatinine m easurement (mass/volume)Ordered By: Dr. Tsai on 02-17-2023 Creatinine [Mass/Vol] 0.64 mg/dL 0.55-1.02 [facility] Comment on above: The validity of the calculated GFR & GFRAA in patients over 70 years has not been determined. Clinical correlation is essential. Serum or plasma urea nitroge n measurement (mass/volume)Ordered By: Dr. Tsai on 02-17-2023 Urea nitrogen [Mass/Vol] 23 mg/dL 7-18 [facility] Squamous epithelial cells de tection in urine sediment by light microscopyOrdered By: Dr. Tsai on 02-17-2023 Epithelial cells.squamous LM Ql (Urine sed) 0-5 SEEN /hpf 5-10 [facility] Thin prep Papanicolaou smear with manual screeningOrdered By: Dr. Tsai on 02-17-2023 Thin prep Papanicolaou smear with manual screening 21 U/L 15-37 [facility] Thin prep Papanicolaou smear with manual screening -2 5-15 [facility] Urine blood detectionOrdered By: Dr. Tsai on 02-17-2023 RBC Ql (U) 25 /ul Negative [facility] RBC Ql (U) 0-5 SEEN /hpf 0-5 [facility] Urine clarityOrdered By: Dr. Tsai on 02-17-2023 Clarity (U) Sl. Cloudy Clear [facility] Urine coarse granular cast d etectionOrdered By: Dr. Tsai on 02-17-2023 Coarse Granular Casts LM Ql (Urine sed) 0-5 SEEN /lpf 0-5 /lpf [facility] Urine color determinationOrd ered By: Dr. Tsai on 02-17-2023 Color (U) Yellow Yellow [facility] Urine glucose detectionOrder ed By: Dr. Tsai on 02-17-2023 Glucose Ql (U) Normal mg/dl Normal [facility] Urine leukocyte esterase det ection by dipstickOrdered By: Dr. Tsai on 02-17-2023 Leukocyte esterase Test strip Ql (U) Negative Negative [facility] Urine pHOrdered By: Dr. Paul kohli on 02-17-2023 pH (U) 5.0 [pH] 5.0 - 8.0 [facility] Urine phencyclidine (PCP) de tectionOrdered By: Dr. Tsai on 02-17-2023 Phencyclidine Ql (U) Negative < 25 ng/mL [facility] Urine sediment bacteria coun t by microscopy (number/high power field)Ordered By: Dr. Tsai on 02-17-2023 Bacteria LM.HPF (Urine sed) [#/Area] 0 /[HPF] None Seen [facility] Urine specific gravity measu rementOrdered By: Dr. Tsai on 02-17-2023 Specific gravity (U) [Rel density] 1.030 1.002-1.030 [facility] Urobilinogen Auto test strip Ql (U)Ordered By: Dr. Tsai on 02-17-2023 Urobilinogen Ql (U) Normal mg/dl Normal [facility] pH measurementOrdered By: Dr Che Resendiz on 02-17-2023 pH (Unsp spec) 7.34 [pH] 7.35-7.45 [facility] No Panel InformationOrdered By: Jonathan Dillard on 02-07-2023 Miscellaneous Test See comment [facility] Comment on above: TEST RESULTS LIMITSS ARS-CoV-2, [id number], ISA Not Detected Not DetectedThis nucleic acid amplification test was developed and its performance characteristics determined by [facility]. Nucleic acid amplification tests include RT-PCR and [...] result in this assay. [facility]ING [facility]FOR[facility] ORIGINAL REPORT ON FILE IN LAB CONTAINS ADDITIONAL TEST SITE INFORMATION. Absolute lymphocyte countOrd ered By: Dr. Jeffries on 01-11-2023 Lymphocytes Auto (Unsp spec) [#/Vol] 0.59 10*3/uL 0.83-4.51 [facility] Basophil percentageOrdered B y: Dr. Jeffries on 01-11-2023 Basophils/100 WBC (Bld) 0.2 % 0-1 [facility] Bilirubin [Mass/Vol] 0.50 mg/dL 0.20-1.00 [facility] Comment on above: For patients on eltr ombopag therapy, use of Dimension [place] TBIL is not recommended. Chloride [Moles/Vol] 99 mmol/L 98-107 [facility] Eosinophils/100 WBC (Bld) 1.1 % 0-5 [facility] Glucose [Mass/Vol] 124 mg/dL 74-106 [facility] Comment on above: Fasting Glucose resu lt from 100 to 125 mg/dL suggests IMPAIRED HOMEOSTASIS per A.D.A. criteria. LDH [Catalytic activity/Vol] 147 U/L 84-246 [facility] Neutrophils (Bld) [#/Vol] 4.4 10*3/uL 2.0-7.7 [facility] Neutrophils/100 WBC (Bld) 81.5 % 47-70 [facility] Potassium [Moles/Vol] 4.2 mmol/L 3.5-5.1 [facility] Protein [Mass/Vol] 7.1 g/dL 6.4-8.2 [facility] Sodium [Moles/Vol] 146 mmol/L 136-145 [facility] WBC (Bld) [#/Vol] 5.4 10*3/uL 4.4-11.0 [facility] Blood erythrocytes count (nu mber/volume)Ordered By: Dr. Jeffries on 01-11-2023 RBC (Bld) [#/Vol] 3.43 10*6/uL 4.2-5.4 [facility] Blood hemoglobin measurement (mass/volume)Ordered By: Dr. Jeffries on 01-11-2023 Hemoglobin (Bld) [Mass/Vol] 9.7 g/dL 12.0-15.0 [facility] Blood lymphocytes/100 leukoc ytesOrdered By: Dr. Jeffries on 01-11-2023 Lymphocytes/100 WBC (Bld) 11.0 % 19-41 [facility] Blood manual differential co mment interpretation (narrative result)Ordered By: Dr. Jeffries on 01-11-2023 Manual differential comment Ajit (Bld) [Interp] SCANNED [facility] Blood monocytes/100 leukocyt esOrdered By: Dr. Jeffries on 01-11-2023 Monocytes/100 WBC (Bld) 5.6 % 0-10 [facility] Blood platelet mean volumeOr dered By: Dr. Jeffries on 01-11-2023 Platelet mean volume (Bld) [Entitic vol] 8.4 fL 6.2-12.0 [facility] Determination of erythrocyte mean corpuscular volume (MCV)Ordered By: Dr. Jeffries on 01-11-2023 MCV (RBC) [Entitic vol] 97.4 fL 81-99 [facility] Hematocrit Auto (Bld) [Volum e fraction]Ordered By: Dr. Jeffries on 01-11-2023 Hematocrit (Bld) [Volume fraction] 33.4 % 37-47 [facility] Hemoglobin in reticulocytes (mass per reticulocyte)Ordered By: Dr. Jeffries on 01-11-2023 Hemoglobin (Reticulocytes) [Entitic mass] 24.6 pg 30-35 [facility] Hypochromatic red blood cell detectionOrdered By: Dr. Jeffries on 01-11-2023 Hypochromia Ql (Bld) 2+ [facility] Iron measurement (mass/mass) Ordered By: Dr. Jeffries on 01-11-2023 Iron (Unsp spec) [Mass/Mass] 35 ug/dL 50-170 [facility] Laboratory - Chemistry and C hemistry - challengeOrdered By: Dr. Jeffries on 01-11-2023 ALP [Catalytic activity/Vol] 81 U/L 45-117 [facility] ALT [Catalytic activity/Vol] 15 U/L 13-56 [facility] CO2 [Moles/Vol] 43.0 mmol/L 21.0-32.0 [facility] Cobalamin (Vitamin B12) [Mass/Vol] 561 pg/mL 211-911 [facility] Globulin (S) [Mass/Vol] 3.9 g/dL 2.2-4.2 [facility] Urea nitrogen/Creatinine [Mass ratio] 22.3 mg/mg 10-20 [facility] Laboratory - Hematology and Cell countsOrdered By: Dr. Jeffries on 01-11-2023 Erythrocyte distribution width (RBC) [Entitic vol] 51.6 fL 35.1-43.9 [facility] Erythrocyte distribution width (RBC) [Ratio] 14.5 % 11.6-14.6 [facility] Immature granulocytes/100 WBC (Bld) 0.600 % 0.0-0.9 [facility] Comment on above: IG% - Immature Granu locytes (promyelocytes, myelocytes and metamyelocytes) > 1% indicates that a LEFT SHIFT is Present. MCH (RBC) [Entitic mass] 28.3 pg 27.0-32.0 [facility] Nucleated RBC/100 WBC (Bld) [Ratio] 0 % 0-5 [facility] MCHC Auto (RBC) [Mass/Vol]Or dered By: Dr. Jeffries on 01-11-2023 MCHC (RBC) [Mass/Vol] 29.0 g/dL 32-36 [facility] No Panel InformationOrdered By: Dr. Jeffries on 01-11-2023 Estimated GFR (MDRD) Amer 102 mL/min >60 [facility] Comment on above: GFR Calc Estimated GFR (MDRD) Non-Af Amer 85 mL/min >60 [facility] Comment on above: Non- GFR Calc Immature Platelet Fraction 1.3 % 1.0-7.9 [facility] Comment on above: Low PLT + Low IPF faust ggest a bone marrow production disorderLow PLT + high IPF suggests peripheral destruction(e.g.ITP, TTP, HIT, DIC, autoimmune) or bone marrow recoveryTrending of serial IPF measurements is recommended when evaluating for bone marrow responesValue above normal range indicates an increase in RBC cellular response from bone marrow. Immature Reticulocyte Fraction 23.00 % 3.00-15.90 [facility] Reticulocyte Count 2.53 % 0.5-1.5 [facility] Total Iron Binding Capacity 186 ug/dL 250-450 [facility] Platelets bldOrdered By: Dr. Jeffries on 01-11-2023 Platelets (Bld) [#/Vol] 138 10*3/uL 150-450 [facility] Serum or plasma albumin celina urement (mass/volume)Ordered By: Dr. Jeffries on 01-11-2023 Albumin [Mass/Vol] 3.2 g/dL 3.2-5.0 [facility] Serum or plasma albumin/glob ulin mass ratioOrdered By: Dr. Jeffries on 01-11-2023 Albumin/Globulin [Mass ratio] 0.8 {ratio} 0.9-2.4 [facility] Serum or plasma calcium celina urement (mass/volume)Ordered By: Dr. Jeffries on 01-11-2023 Calcium [Mass/Vol] 9.1 mg/dL 8.5-10.1 [facility] Serum or plasma creatinine m easurement (mass/volume)Ordered By: Dr. Jeffries on 01-11-2023 Creatinine [Mass/Vol] 0.72 mg/dL 0.55-1.02 [facility] Comment on above: The validity of the calculated GFR & GFRAA in patients over 70 years has not been determined. Clinical correlation is essential. Serum or plasma ferritin carter surement (mass/volume)Ordered By: Dr. Jeffries on 01-11-2023 Ferritin [Mass/Vol] 55 ng/mL 8-252 [facility] Serum or plasma folate measu rement (mass/volume)Ordered By: Dr. Jeffries on 01-11-2023 Folate [Mass/Vol] 73.30 ng/mL 3.1-55.4 [facility] Serum or plasma iron saturat ion measurement (mass fraction)Ordered By: Dr. Jeffries on 01-11-2023 Iron saturation [Mass fraction] 18.8 % 15.0-55.0 [facility] Serum or plasma urea nitroge n measurement (mass/volume)Ordered By: Dr. Jeffries on 01-11-2023 Urea nitrogen [Mass/Vol] 16 mg/dL 7-18 [facility] Thin prep Papanicolaou smear with manual screeningOrdered By: Dr. Jeffries on 01-11-2023 Thin prep Papanicolaou smear with manual screening 14 U/L 15-37 [facility] Thin prep Papanicolaou smear with manual screening 4 5-15 [facility] Progress Noteon 11-02-2022 Progress Note [...] pancytopenia. Of note she states she saw park police 6 years ago and underwent a bone [...] Stable, follow-up with surgery as discussed Normal [facility] Basophil percentageOrdered B y: Stef Villegas on 11-01-2022 WBC (Bld) [#/Vol] 4.9 10*3/uL 4.4-11.0 [facility] Blood erythrocytes count (nu mber/volume)Ordered By: Stef Villegas on 11-01-2022 RBC (Bld) [#/Vol] 3.26 10*6/uL [facility]2-5.4 [facility] hemoglobin measurement (mass/volume)Ordered By: Stef Villegas on 11-01-2022 Hemoglobin (Bld) [Mass/Vol] 8.9 g/dL 12.0-15.0 [facility] Blood platelet mean volumeOr dered By: Stef Villegas on 11-01-2022 Platelet mean volume (Bld) [Entitic vol] 10.0 fL 6.2-12.0 [facility] Determination of erythrocyte mean corpuscular volume (MCV)Ordered By: Stef Villegas on 11-01-2022 MCV (RBC) [Entitic vol] 96.0 fL 81-99 [facility] Hematocrit Auto (Bld) [Volum e fraction]Ordered By: Stef Villegas on 11-01-2022 Hematocrit (Bld) [Volume fraction] 31.3 % 37-47 [facility] Iron measurement (mass/mass) Ordered By: Stef Villegas on 11-01-2022 Iron (Unsp spec) [Mass/Mass] 29 ug/dL 50-170 [facility] Laboratory - Chemistry and C hemistry - challengeOrdered By: Stef Villegas on 11-01-2022 Cobalamin (Vitamin B12) [Mass/Vol] 208 pg/mL 211-911 [facility] Laboratory - Hematology and Cell countsOrdered By: Stef Villegas on 11-01-2022 Erythrocyte distribution width (RBC) [Entitic vol] 49.5 fL 35.1-43.9 [facility] Erythrocyte distribution width (RBC) [Ratio] 14.2 % 11.6-14.6 [facility] MCH (RBC) [Entitic mass] 27.3 pg 27.0-32.0 [facility] MCHC Auto (RBC) [Mass/Vol]Or dered By: Stef Villegas on 11-01-2022 MCHC (RBC) [Mass/Vol] 28.4 g/dL 32-36 [facility] No Panel InformationOrdered By: Stef Villegas on 11-01-2022 Total Iron Binding Capacity 212 ug/dL 250-450 [facility] Platelets bldOrdered By: Elida Villegas on 11-01-2022 Platelets (Bld) [#/Vol] 94 10*3/uL 150-450 [facility] Comment on above: PREVIOUS RESULTS <10 0. Serum or plasma ferritin carter surement (mass/volume)Ordered By: Stef Villegas on 11-01-2022 Ferritin [Mass/Vol] 45 ng/mL 8-252 [facility] [facility] Serum or plasma folate measu rement (mass/volume)Ordered By: Stef Bakari on 11-01-2022 Folate [Mass/Vol] 6.00 ng/mL 3.1-55.4 [facility] Serum or plasma iron saturat ion measurement (mass fraction)Ordered By: Stef Bakari on 11-01-2022 Iron saturation [Mass fraction] 13.7 % 15.0-55.0 [facility] CT SPINE CERVICAL W/O CONTRA [...] PM Ordering Provider: TRACE MATTHEWS [facility] ([place]) Progress Noteon 10-20-2022 Progress Note Well-controlled hypertensive [...] discussed discharge status with nursing and social worker assistant is looking into assisted living facility placement in the near future. Normal [facility] XR SPINE CERVICAL AP/LAT/FLE X/EXTon 10-06-2022 XR [...] Sign Date: 10/06/2022 11:46:14 AM Ordering Provider: [facility]) XR SPINE THORACIC 2 VIEWSon 10-06-2022 XR [...] Sign Date: 10/06/2022 11:47:34 AM Ordering Provider: [facility]) Basophil percentageon 2021 Basophil percentage 0 SEEN /hpf 0-[address] [facility] [facility] Work Phone: Bilirubin Test strip Ql (U)o n 10-05-2022 Bilirubin Ql (U) Negative Negative [facility] Work Phone: Ketones Test strip Ql (U)on 10-05-2022 Ketones Ql (U) Negative Negative [facility] Work Phone: Mucus LM Ql (Urine sed)on Mucus Ql (Urine sed) 0 SEEN /hpf [facility] Work Phone: Nitrite Test strip Ql (U)on 10-05-2022 Nitrite Ql (U) Negative Negative [facility] Work Phone: Protein Test strip Ql (U)on 10-05-2022 Protein Ql (U) Negative Negative [facility] Work Phone: Squamous epithelial cells de tection in urine sediment by light microscopyon 10-05-2022 Epithelial cells.squamous LM Ql (Urine sed) 0 SEEN /hpf 5-10 [facility] Work Phone: Urine blood detectionon 09-15 RBC Ql (U) Negative Negative [facility] Work Phone: RBC Ql (U) 0 SEEN /hpf 0-5 [facility] Work Phone: Urine clarityon 10-05-2022 Clarity (U) Clear Clear [facility] Work Phone: Urine color determinationon 10-05-2022 Color (U) Yellow Yellow [facility] Work Phone: Urine glucose detectionon Glucose Ql (U) Normal mg/dl Normal [facility] Work Phone: Urine leukocyte esterase det ection by dipstickon 10-05-2022 Leukocyte esterase Test strip Ql (U) Negative Negative [facility] Work Phone: Urine pHon 10-05-2022 pH (U) 7.0 [pH] 5.0 - 8.0 [facility] Work Phone: Urine sediment bacteria coun t by microscopy (number/high power field)on 10-05-2022 Bacteria LM.HPF (Urine sed) [#/Area] 0 /[HPF] None Seen [facility] Work Phone: Urine specific gravity measu rementon 10-05-2022 Specific gravity (U) [Rel density] 1.010 1.002-1.030 [facility] Work Phone: Urobilinogen Auto test strip Ql (U)on 10-05-2022 Urobilinogen Ql (U) Normal mg/dl Normal [facility] Work Phone: Absolute lymphocyte counton 09-29-2022 Lymphocytes Auto (Unsp spec) [#/Vol] 0.69 10*3/uL 0.83-4.51 [facility] Work Phone: Basophil percentageon 2021 Basophils/100 WBC (Bld) 0.3 % 0-1 [facility] Work Phone: Eosinophils/100 WBC (Bld) 2.1 % 0-5 [facility] Work Phone: Neutrophils (Bld) [#/Vol] 2.3 10*3/uL 2.0-7.7 [facility] Work Phone: Neutrophils/100 WBC (Bld) 69.9 % 47-70 [facility] Work Phone: WBC (Bld) [#/Vol] 3.3 10*3/uL 4.4-11.0 [facility] Work Phone: Blood erythrocytes count (nu mber/volume)on 09-29-2022 RBC (Bld) [#/Vol] 3.17 10*6/uL 4.2-5.4 [facility] Work Phone: Blood hemoglobin measurement (mass/volume)on 09-29-2022 Hemoglobin (Bld) [Mass/Vol] 8.8 g/dL 12.0-15.0 [facility] Work Phone: Blood lymphocytes/100 leukoc yteson 09-29-2022 Lymphocytes/100 WBC (Bld) 21.0 % 19-41 [facility] Work Phone: Blood monocytes/100 leukocyt eson 09-29-2022 Monocytes/100 WBC (Bld) 6.1 % 0-10 [facility] Work Phone: Blood platelet mean volumeon 09-29-2022 Platelet mean volume (Bld) [Entitic vol] 10.0 fL 6.2-12.0 [facility] Work Phone: Determination of erythrocyte mean corpuscular volume (MCV)on 09-29-2022 MCV (RBC) [Entitic vol] 97.2 fL 81-99 [facility] Work Phone: Hematocrit Auto (Bld) [Volum e fraction]on 09-29-2022 Hematocrit (Bld) [Volume fraction] 30.8 % 37-47 [facility] Work Phone: Laboratory - Hematology and Cell countson 09-29-2022 Erythrocyte distribution width (RBC) [Entitic vol] 49.7 fL 35.1-43.9 [facility] Work Phone: Erythrocyte distribution width (RBC) [Ratio] 14.0 % 11.6-14.6 [facility] Work Phone: Immature granulocytes/100 WBC (Bld) 0.600 % 0.0-0.9 [facility] Work Phone: Comment on above: IG% - Immature Granu locytes (promyelocytes, myelocytes and metamyelocytes) > 1% indicates that a LEFT SHIFT is Present. MCH (RBC) [Entitic mass] 27.8 pg 27.0-32.0 [facility] Work Phone: [phone] Nucleated RBC/100 WBC (Bld) [Ratio] 0.9 % 0-5 [facility] Work Phone: [phone] MCHC Auto (RBC) [Mass/Vol]on 09-29-2022 MCHC (RBC) [Mass/Vol] 28.6 g/dL 32-36 [facility] Work Phone: Platelets bldon 09-29-2022 Platelets (Bld) [#/Vol] 83 10*3/uL 150-450 [facility] Work Phone: Basophil percentageon 2021 Basophil percentage 5-10 SEEN /hpf 0-[address] [facility] Work Phone: Bilirubin Test strip Ql (U)o n 09-08-2022 Bilirubin Ql (U) Negative Negative [facility] Work Phone: Ketones Test strip Ql (U)on 09-08-2022 Ketones Ql (U) Negative Negative [facility] Work Phone: Mucus LM Ql (Urine sed)on Mucus Ql (Urine sed) 1+ /hpf [facility] Work Phone: Nitrite Test strip Ql (U)on 09-08-2022 Nitrite Ql (U) Positive Negative [facility] Work Phone: Protein Test strip Ql (U)on 09-08-2022 Protein Ql (U) Negative Negative [facility] Work Phone: Squamous epithelial cells de tection in urine sediment by light microscopyon 09-08-2022 Epithelial cells.squamous LM Ql (Urine sed) 0-5 SEEN /hpf 5-10 [facility] Work Phone: Urine blood detectionon 08-15 RBC Ql (U) 10 /ul Negative [facility] Work Phone: RBC Ql (U) 0-5 SEEN /hpf 0-5 [facility] Work Phone: Urine clarityon 09-08-2022 Clarity (U) Sl. Cloudy Clear [facility] Work Phone: Urine color determinationon 09-08-2022 Color (U) Yellow Yellow [facility] Work Phone: Urine glucose detectionon Glucose Ql (U) Normal mg/dl Normal [facility] Work Phone: Urine leukocyte esterase det ection by dipstickon 09-08-2022 Leukocyte esterase Test strip Ql (U) 500 /ul Negative [facility] Work Phone: Urine pHon 09-08-2022 pH (U) 6.5 [pH] 5.0 - 8.0 [facility] Work Phone: Urine sediment bacteria coun t by microscopy (number/high power field)on 09-08-2022 Bacteria LM.HPF (Urine sed) [#/Area] 2 /[HPF] None Seen [facility] Work Phone: Urine specific gravity measu rementon 09-08-2022 Specific gravity (U) [Rel density] 1.010 1.002-1.030 [facility] Work Phone: [phone] Urobilinogen Auto test strip Ql (U)on 09-08-2022 Urobilinogen Ql (U) Normal mg/dl Normal [facility] Work Phone: Absolute lymphocyte counton 09-01-2022 Lymphocytes Auto (Unsp spec) [#/Vol] 0.68 10*3/uL 0.83-4.51 [facility] Work Phone: Basophil percentageon 2021 Basophils/100 WBC (Bld) 0.3 % 0-1 [facility] Work Phone: [phone] Bilirubin [Mass/Vol] 0.50 mg/dL 0.20-1.00 [facility] Work Phone: Comment on above: For patients on eltr ombopag therapy, use of [place] TBIL is not recommended. Chloride [Moles/Vol] 106 mmol/L 98-107 [facility] Work Phone: Eosinophils/100 WBC (Bld) 1.5 % 0-5 [facility] Work Phone: Glucose [Mass/Vol] 86 mg/dL 74-106 [facility] Work Phone: Neutrophils (Bld) [#/Vol] 2.4 10*3/uL 2.0-7.7 [facility] Work Phone: [phone] Neutrophils/100 WBC (Bld) 71.9 % 47-70 [facility] Work Phone: [phone] Potassium [Moles/Vol] 3.9 mmol/L 3.5-5.1 [facility] Work Phone: Protein [Mass/Vol] 6.4 g/dL 6.4-8.2 [facility] Work Phone: Sodium [Moles/Vol] 147 mmol/L 136-145 [facility] Work Phone: WBC (Bld) [#/Vol] 3.4 10*3/uL 4.4-11.0 [facility] Work Phone: Blood erythrocytes count (nu mber/volume)on 09-01-2022 RBC (Bld) [#/Vol] 2.97 10*6/uL 4.2-5.4 [facility] Work [facility]: Blood hemoglobin measurement (mass/volume)on 09-01-2022 Hemoglobin (Bld) [Mass/Vol] 8.6 g/dL 12.0-15.0 [facility] Work Phone: Blood lymphocytes/100 leukoc yteson 09-01-2022 Lymphocytes/100 WBC (Bld) 20.3 % 19-41 [facility] Work Phone: Blood monocytes/100 leukocyt eson 09-01-2022 Monocytes/100 WBC (Bld) 5.7 % 0-10 [facility] Work Phone: Blood platelet adequacy dete ction by light microscopyon 09-01-2022 Platelets LM Ql (Bld) MOD DEC A[facility]Q [facility] Work Phone: Blood platelet mean volumeon 09-01-2022 Platelet mean volume (Bld) [Entitic vol] 9.3 fL 6.2-12.0 [facility] Work Phone: Determination of erythrocyte mean corpuscular volume (MCV)on 09-01-2022 MCV (RBC) [Entitic vol] 97.6 fL 81-99 [facility] Work Phone: Hematocrit Auto (Bld) [Volum e fraction]on 09-01-2022 Hematocrit (Bld) [Volume fraction] 29.0 % 37-47 [facility] Work Phone: Laboratory - Chemistry and C hemistry - challengeon 09-01-2022 ALP [Catalytic activity/Vol] 65 U/L 45-117 [facility] Work Phone: ALT [Catalytic activity/Vol] 19 U/L 13-56 [facility] Work Phone: CO2 [Moles/Vol] 40.0 mmol/L 21.0-32.0 [facility] Work Phone: Globulin (S) [Mass/Vol] 3.4 g/dL 2.2-4.2 [facility] Work Phone: Urea nitrogen/Creatinine [Mass ratio] 21.1 mg/mg 10-20 [facility] Work Phone: Laboratory - Hematology and Cell countson 09-01-2022 Erythrocyte distribution width (RBC) [Entitic vol] 49.0 fL 35.1-43.9 [facility] Work Phone: Erythrocyte distribution width (RBC) [Ratio] 13.7 % 11.6-14.6 [facility] Work Phone: Immature granulocytes/100 WBC (Bld) 0.300 % 0.0-0.9 [facility] Work Phone: Comment on above: IG% - Immature Granu locytes (promyelocytes, myelocytes and metamyelocytes) > 1% indicates that a LEFT SHIFT is Present. MCH (RBC) [Entitic mass] 29.0 pg 27.0-32.0 [facility] Work Phone: Nucleated RBC/100 WBC (Bld) [Ratio] 0 % 0-5 [facility] Work Phone: MCHC Auto (RBC) [Mass/Vol]on 09-01-2022 MCHC (RBC) [Mass/Vol] 29.7 g/dL 32-36 [facility] Work Phone: No Panel Informationon 09-01 Estimated GFR (MDRD) Amer 112 mL/min >60 [facility] Work Phone: Comment on above: GFR Calc Estimated GFR (MDRD) Non-Af Amer 93 mL/min >60 [facility] Work Phone: Comment on above: Non- GFR Calc Thyroid Stimulating Hormone (TSH) 2.06 uIU/mL 0.358-3.74 [facility] Work Phone: Platelets bldon 09-01-2022 Platelets (Bld) [#/Vol] 99 10*3/uL 150-450 [facility] Work Phone: RBC morphologyon 09-01-2022 RBC morphology finding Nom (Bld) NORM C+C NORMAL NORM C&C [facility] Work Phone: Serum or plasma albumin celina urement (mass/volume)on 09-01-2022 Albumin [Mass/Vol] 3.0 g/dL 3.2-5.0 [facility] Work Phone: Serum or plasma albumin/glob ulin mass ratioon 09-01-2022 Albumin/Globulin [Mass ratio] 0.9 {ratio} 0.9-2.4 [facility] Work Phone: Serum or plasma calcium celina urement (mass/volume)on 09-01-2022 Calcium [Mass/Vol] 8.8 mg/dL 8.5-10.1 [facility] Work Phone: Serum or plasma creatinine m easurement (mass/volume)on 09-01-2022 Creatinine [Mass/Vol] 0.66 mg/dL 0.55-1.02 [facility] Work Phone: Comment on above: The validity of the calculated GFR & GFRAA in patients over 70 years has not been determined. Clinical correlation is essential. Serum or plasma urea nitroge n measurement (mass/volume)on 09-01-2022 Urea nitrogen [Mass/Vol] 14 mg/dL 7-18 [facility] Work Phone: Thin prep Papanicolaou smear with manual screeningon 09-01-2022 Thin prep Papanicolaou smear with manual screening 21 U/L 15-37 [facility] Work Phone: Thin prep Papanicolaou smear with manual screening 1 5-15 [facility] Work Phone: Absolute lymphocyte counton 08-26-2022 Lymphocytes Auto (Unsp spec) [#/Vol] 0.68 10*3/uL 0.83-4.51 [facility] Work Phone: Basophil percentageon 2021 Basophils/100 WBC (Bld) 0.2 % 0-1 [facility] Work Phone: Eosinophils/100 WBC (Bld) 1.2 % 0-5 [facility] Work Phone: Neutrophils (Bld) [#/Vol] 3.0 10*3/uL 2.0-7.7 [facility] Work Phone: Neutrophils/100 WBC (Bld) 74.7 % 47-70 [facility] Work Phone: WBC (Bld) [#/Vol] 4.0 10*3/uL 4.4-11.0 [facility] Work Phone: Blood erythrocytes count (nu mber/volume)on 08-26-2022 RBC (Bld) [#/Vol] 2.88 10*6/uL 4.2-5.4 [facility] Work Phone: [phone] Blood hemoglobin measurement (mass/volume)on 08-26-2022 Hemoglobin (Bld) [Mass/Vol] 8.5 g/dL 12.0-15.0 [facility] Work Phone: Blood lymphocytes/100 leukoc yteson 08-26-2022 Lymphocytes/100 WBC (Bld) 17.0 % 19-41 [facility] Work Phone: Blood monocytes/100 leukocyt eson 08-26-2022 Monocytes/100 WBC (Bld) 6.7 % 0-10 [facility] Work Phone: Blood platelet mean volumeon 08-26-2022 Platelet mean volume (Bld) [Entitic vol] 9.3 fL 6.2-12.0 [facility] Work Phone: Determination of erythrocyte mean corpuscular volume (MCV)on 08-26-2022 MCV (RBC) [Entitic vol] 101.0 fL 81-99 [facility] Work Phone: [phone] Hematocrit Auto (Bld) [Volum e fraction]on 08-26-2022 Hematocrit (Bld) [Volume fraction] 29.1 % 37-47 [facility] Work Phone: Laboratory - Hematology and Cell countson 08-26-2022 Erythrocyte distribution width (RBC) [Entitic vol] 50.9 fL 35.1-43.9 [facility] Work Phone: Erythrocyte distribution width (RBC) [Ratio] 13.8 % 11.6-14.6 [facility] Work Phone: [phone] Immature granulocytes/100 WBC (Bld) 0.200 % 0.0-0.9 [facility] Work Phone: Comment on above: IG% - Immature Granu locytes (promyelocytes, myelocytes and metamyelocytes) > 1% indicates that a LEFT SHIFT is Present. MCH (RBC) [Entitic mass] 29.5 pg 27.0-32.0 [facility] Work Phone: Nucleated RBC/100 WBC (Bld) [Ratio] 0 % 0-5 [facility] Work Phone: [phone] MCHC Auto (RBC) [Mass/Vol]on 08-26-2022 MCHC (RBC) [Mass/Vol] 29.2 g/dL 32-36 [facility] Work Phone: Platelets bldon 08-26-2022 Platelets (Bld) [#/Vol] 105 10*3/uL 150-450 [facility] Work Phone: Basophil percentageon 2021 Chloride [Moles/Vol] 99 mmol/L 98-107 [facility] Work Phone: Cholesterol [Mass/Vol] 149 mg/dL <200 [facility] Work Phone: Comment on above: <200 mg/dL Desirable 200-240 mg/dL Borderline >240 mg/dL High Risk Glucose [Mass/Vol] 148 mg/dL 74-106 [facility] Work Phone: Comment on above: Fasting Glucose resu lt greater than or equal to 126 mg/dL suggests DIABETES MELLITUS per A.D.A. criteria. Potassium [Moles/Vol] 4.2 mmol/L 3.5-5.1 [facility] Work Phone: Sodium [Moles/Vol] 141 mmol/L 136-145 [facility] Work Phone: Triglyceride [Mass/Vol] 188 mg/dL <199 [facility] Work Phone: Comment on [...] 08-02-2022 RBC (Bld) [#/Vol] 2.91 10*6/uL 4.2-5.4 [facility] Work Phone: Blood hemoglobin measurement (mass/volume)on 08-02-2022 Hemoglobin (Bld) [Mass/Vol] 8.6 g/dL 12.0-15.0 [facility] Work Phone: Blood platelet mean volumeon 08-02-2022 Platelet mean volume (Bld) [Entitic vol] 9.1 fL 6.2-12.0 [facility] Work Phone: Determination of erythrocyte mean corpuscular volume (MCV)on 08-02-2022 MCV (RBC) [Entitic vol] 102.4 fL 81-99 [facility] Work Phone: Hematocrit Auto (Bld) [Volum e fraction]on 08-02-2022 Hematocrit (Bld) [Volume fraction] 29.8 % 37-47 [facility] Work Phone: Iron measurement (mass/mass) on 08-02-2022 Iron (Unsp spec) [Mass/Mass] 43 ug/dL 50-170 [facility] Work Phone: Laboratory - Chemistry and C hemistry - challengeon 08-02-2022 Albumin [Mass/Vol] 3.3 g/dL 2.9-4.4 [facility] Work Phone: CO2 [Moles/Vol] 39.0 mmol/L 21.0-32.0 [facility] Work Phone: Cobalamin (Vitamin B12) [Mass/Vol] 350 pg/mL 211-911 [facility] Work Phone: Urea nitrogen/Creatinine [Mass ratio] 26.8 mg/mg 10-20 [facility] Work Phone: Laboratory - Hematology and Cell countson 08-02-2022 Erythrocyte distribution width (RBC) [Entitic vol] 52.6 fL 35.1-43.9 [facility] Work Phone: Erythrocyte distribution width (RBC) [Ratio] 14.2 % 11.6-14.6 [facility] Work Phone: MCH (RBC) [Entitic mass] 29.6 pg 27.0-32.0 [facility] Work Phone: MCHC Auto (RBC) [Mass/Vol]on 08-02-2022 MCHC (RBC) [Mass/Vol] 28.9 g/dL 32-36 [facility] Work Phone: No Panel Informationon 08-02 Addendum Document Comment . [facility] Work Phone: Comment on above: The SPE pattern appe ars unremarkable. Evidence ofmonoclonal protein is not apparent.Performed at: [address] [id number] Director: Mark Woo PhD, Phone: [phone] Ismjk-4-Vohtamaco 0.3 g/dL 0.0-0.4 [facility] Work Phone: Tstdm-1-Yrrhizonq 0.9 g/dL 0.4-1.0 [facility] Work Phone: Estimated GFR (MDRD) Amer 104 mL/min >60 [facility] Work Phone: Comment on above: GFR Calc Estimated GFR (MDRD) Non-Af Amer 86 mL/min >60 [facility] Work Phone: Comment on above: Non- GFR Calc Gamma Globulins 0.9 g/dL 0.4-1.8 [facility] Work Phone: Thyroid Stimulating Hormone (TSH) 1.91 uIU/mL 0.358-3.74 [facility] Work Phone: Total Iron Binding Capacity 268 ug/dL 250-450 [facility] Work Phone: Platelets bldon 08-02-2022 Platelets (Bld) [#/Vol] 120 10*3/uL 150-450 [facility] Work Phone: Protein Fractions Elph [Inte rp]on 08-02-2022 Protein Fractions [Interp] Comment . [facility] Work Phone: Comment on above: Protein electrophore sis scan will follow via computer,mail, or bank courier delivery. Serum albumin to globulin ra amairani by protein electrophoresison 08-02-2022 Albumin/Globulin Elph [Mass ratio] 1.0 0.7-1.7 [facility] Work Phone: Serum globulin measurement ( mass/volume)on 08-02-2022 Globulin (S) [Mass/Vol] 3.2 g/dL 2.2-3.9 [facility] Work Phone: Serum or plasma beta globuli n measurement by electrophoresis (mass/volume)on 08-02-2022 Beta globulin Elph [Mass/Vol] 1.0 g/dL 0.7-1.3 [facility] Work Phone: Serum or plasma calcium celina urement (mass/volume)on 08-02-2022 Calcium [Mass/Vol] 9.0 mg/dL 8.5-10.1 [facility] Work Phone: Serum or plasma cholesterol in HDL measurement (mass/volume)on 08-02-2022 Cholesterol in HDL [Mass/Vol] 53 mg/dL >40 [facility] Work Phone: Comment on above: The drugs N-Acetylcy steine and Metamizole may falsely depress this assay. Reference Range HDL <40 mg/dL Low HDL Cholesterol HDL >or= 60 mg/dL High HDL Cholesterol Serum or plasma cholesterol in VLDL measurement (mass/volume)on 08-02-2022 Cholesterol in VLDL [Mass/Vol] 38 mg/dL 5-40 [facility] Work Phone: Serum or plasma creatinine m easurement (mass/volume)on 08-02-2022 Creatinine [Mass/Vol] 0.71 mg/dL 0.55-1.02 [facility] Work Phone: Comment on above: The validity of the calculated GFR & GFRAA in patients over 70 years has not been determined. Clinical correlation is essential. Serum or plasma iron saturat ion measurement (mass fraction)on 08-02-2022 Iron saturation [Mass fraction] 16.0 % 15.0-55.0 [facility] Work Phone: Serum or plasma low density lipoprotein (LDL) cholesterol measurement (mass/volume)on 08-02-2022 Cholesterol in LDL [Mass/Vol] 58 mg/dL 0-130 [facility] Work Phone: Serum or plasma urea nitroge n measurement (mass/volume)on 08-02-2022 Urea nitrogen [Mass/Vol] 19 mg/dL 7-18 [facility] Work Phone: Thin prep Papanicolaou smear with manual screeningon 08-02-2022 Thin prep Papanicolaou smear with manual screening 3 5-15 [facility] Work Phone: Thin prep Papanicolaou smear with manual screening See comment [facility] Work Phone: Comment on above: Result: Not Observed Total protein bloodon 2021 Protein [Mass/Vol] 6.5 g/dL 6.0-8.5 [facility] Work Phone: Whole blood hemoglobin A1c/t otal hemoglobin ratio (mass fraction)on 08-02-2022 HbA1c (Bld) [Mass fraction] 5.7 % 3.8-5.6 [facility] Work Phone: Comment on above: Normal < 5.7 % Predi abetic 5.7 - 6.4 % Diabetic >or= 6.5 % Please note range changes. LABORATORYOrdered By: Chelsy Kay on 07-27-2022 Blood Glucose Testing Reason Routine (07/27/22 9:16 AM) [facility] Work Phone: Glucose [Mass/Vol] 177 mg/dL Invalid Interpretation Code 82 - 115 mg/dL [facility] Work Phone: LABORATORYOrdered By: Caitie Roman [...] Comment on above: Result Comment: [place] s [id number] FLUBV RNA ISA+probe Ql (Resp) Negative 8 (07/27/22 9:01 AM) Invalid Interpretation Code Negative Auto Viro/Sero SS Comment on above: Result Comment: Note s [id number] Hospitalized Yes (07/27/22 9:01 AM) Invalid Interpretation [...] Glucose Testing Reason Routine (07/26/22 10:22 PM) [facility] Work Phone: Glucose [Mass/Vol] 176 mg/dL Invalid Interpretation Code 82 - 115 mg/dL [facility] Work Phone: Blood Glucose Testing Reason Routine (07/26/22 5:08 PM) [facility] Work Phone: Glucose [Mass/Vol] 232 mg/dL Invalid Interpretation Code 82 - 115 mg/dL [facility] Work Phone: LABORATORYOrdered By: Marcelina Freeman on 07-25-2022 Blood Glucose Interventions Administered agent to decrease blood sugar (07/25/22 4:57 PM) [facility] Work Phone: Blood Glucose Interventions Administered agent to decrease blood sugar (07/25/22 12:59 PM) [facility] Work Phone: LABORATORYOrdered By: Luana Bliss on 07-24-2022 Blood Glucose Interventions Administered agent to decrease blood sugar (07/24/22 1:00 PM) [facility] Work Phone: LABORATORYOrdered By: Poli Torres [...] Ertapenem TATO [Susc] >100,000 cfu/ml Escherichia coli [facility] Work Phone: Ertapenem TATO [Susc]on 07-12 Escherichia coli Escherichia coli [facility] Work Phone: LABORATORYOrdered By: Dana Lucero [...] Invalid Interpretation Code 82 - 115 mg/dL [facility] Work Phone: LABORATORYOrdered By: Triston Nicholson [...] S CNCOon 11-30-2021 CNCO Letter Text Normal [facility] LABORATORYOrdered By: Dori Frances on [...] Former smoker Tobacco Use Screening; Status:Complete; Done: [id number] Perform:Not Applicable;Ordered; For:SocHx: Former smoker; Ordered By:Jenniffer [...] mixing and drinking quickly. This product is [id number]. Additionally take MiraLAX as needed for constipation. [...] ultrasound of the liver History of Present [id number] female spoken to over telephone referred for [...] History of Colonoscopy APR. 2013- DONE IN [place]- NORMAL History of Esophagogastroduodenoscop y APPROX- 2013- IN [place]- NORMAL History of Knee arthroscopy History of [...] identified Cx Nom (U) Presumptive E. coli [facility] Work Phone: Bacteria identified Cx Nom (U) Positive [facility] Work Phone: Vital Signs Date Time Vital Sign Value Performing Clinician Facility 10-31-2023 11:16-0500 Body height 165.1 cm Elida Rafaume [employer] Work Phone: [facility] 10-31-2023 11:16-0500 Body mass index (BMI) [Ratio] 26.79 kg/m2 Elida Blume [employer]EIGN AGENT-[employer]ER [employer]TER Work Phone: [facility] 10-31-2023 11:16-0500 Body weight 73.03 kg Elida Blume [employer]EIGN AGENT-SUSPENDER C[employer]TER Work Phone: [facility] 10-31-2023 11:16-0500 Diastolic blood pressure 61 mm[Hg] Elida Blume FOREIGN AGENT-SUSPENDER CUTTER Work Phone: [facility] 10-31-2023 11:16-0500 Heart rate 84 /min Elida Blume [employer]EIGN AGENT-SUSPENDER CUTTER Work Phone: [facility] 10-31-2023 11:16-0500 SaO2% (BldA) [Mass fraction] 97 % Elida Blume FOREIGN AGENT-SUSPENDER C[employer]TER Work Phone: [facility] 10-31-2023 11:16-0500 Systolic blood pressure 94 mm[Hg] Elida Blume FOREIGN AGENT-SUSPENDER CUTTER Work Phone: [facility] 10-17-2023 11:20-0500 Body height 165.1 cm Varsha Sotelo MD Work Phone: [facility] 10-17-2023 11:20-0500 Body mass index (BMI) [Ratio] 26.88 kg/m2 Varsha Sotelo MD Work Phone: [facility] 10-17-2023 11:20-0500 Body temperature 97.7 [degF] Varsha Sotelo MD Work Phone: [facility] 10-17-2023 11:20-0500 Body weight 73.26 kg Varsha Sotelo MD Work Phone: [facility] 10-17-2023 11:20-0500 Diastolic blood pressure 54 mm[Hg] Varsha Sotelo MD Work Phone: [facility] 10-17-2023 11:20-0500 Heart rate 74 /min Varsha Sotelo MD Work Phone: [facility] 10-17-2023 11:20-0500 Systolic blood pressure 94 mm[Hg] Varsha Sotelo MD Work Phone: [facility] 09-28-2023 09:24-0500 Body temperature 97.9 [degF] Velvet Jerez DO Work Phone: [facility] 09-28-2023 09:24-0500 Diastolic blood pressure 70 mm[Hg] Velvet Landon-yler DO Work Phone: [facility] 09-28-2023 09:24-0500 Heart rate 91 /min Velvet Landon-yler DO Work Phone: [facility] 09-28-2023 09:24-0500 Respiratory rate 16 /min Velvet Landon-Seyler DO Work Phone: [facility] 09-28-2023 09:24-0500 SaO2% (BldA) [Mass fraction] 99 % Velvet Landon-Seyler DO Work Phone: [facility] 09-28-2023 09:24-0500 Systolic blood pressure 111 mm[Hg] Velvet Landon-Seyler DO Work Phone: [facility] 09-19-2023 16:37-0500 Body temperature 37.0 Velvet Landon-Seyler DO Work Phone: [facility] 09-19-2023 16:37-0500 SaO2% (BldA) [Mass fraction] 99 % Velvet Landon-Seyler DO Work Phone: [facility] 09-19-2023 14:04-0500 Body temperature 37.0 degrees Celsius [facility] Comment on above: Order Comment: While on baseline/ home l evel of oxygen Result Comment: NOTE : Patient Results are Not Corrected for Temperature Performed By: #### 6 00-7 #### BEVERLEY Poe ([id number]) [facility]) [address] [place] [address] 09-19-2023 14:04-0500 SaO2% (BldA) [Mass fraction] 99 % [facility] Comment on above: Order Comment: While on baseline/ home l evel of oxygen Performed By: #### 6 00-7 #### BEVERLEY JU Poe ([id number]) [facility] ([facility]) [address] [place] [address] 09-15-2023 18:44-0400 Body height 165.1 cm Velvet Jerez DO Work Phone: [facility] 09-15-2023 18:44-0400 Body mass index (BMI) [Ratio] 27.46 kg/m2 Velvet Jerez DO Work Phone: [facility] 09-15-2023 18:44-0400 Body weight 74.84 kg Velvet Jerez DO Work Phone: [facility] 09-15-2023 16:54-0400 Diastolic blood pressure 60 mm[Hg] Dr. Jonathan Dillard Sr. Work Phone: [facility] 09-15-2023 16:54-0400 Heart rate 88 /min Dr. Jonathan Dillard Sr. Work Phone: [facility] 09-15-2023 16:54-0400 Inhaled oxygen flow rate 3 L/min Dr. Jonathan Dillard Sr. Work Phone: [facility] 09-15-2023 16:54-0400 Respiratory rate 18 /min Dr. Jonathan Dilladr Sr. Work Phone: [facility] 09-15-2023 16:54-0400 SaO2% (BldA) [Mass fraction] 100 % Dr. Jonathan Dillard Sr. Work Phone: [facility] 09-15-2023 16:54-0400 Systolic blood pressure 115 mm[Hg] Dr. Jonathan Dillard Sr. Work Phone: [facility] 09-15-2023 16:30-0400 Body temperature 97.8 [degF] Dr. Jonathan Dillard Sr. Work Phone: [facility] 09-14-2023 22:45-0400 Body height 165.[address] Jonathan Dillard Sr. Work Phone: [facility] 09-14-2023 22:45-0400 Body mass index (BMI) [Ratio] 29 kg/m2 Dr. Jonathan Dillard Sr. Work Phone: [facility] 09-14-2023 22:45-0400 Body weight 79.[address] Jonathan Dillard Sr. Work Phone: [facility] 09-08-2023 10:18-0400 Body mass index (BMI) [Ratio] 27.6 kg/m2 Dr. Jonathan Dillard Sr. Work Phone: [facility] 09-08-2023 10:18-0400 Body temperature 97.7 [degF] Dr. Jonathan Dillard Sr. Work Phone: [facility] 09-08-2023 10:18-0400 Body weight 75.[address] Jonathan Dillard Sr. Work Phone: [facility] 09-08-2023 10:18-0400 Diastolic blood pressure 55 mm[Hg] Dr. Jonathan Dillard Sr. Work Phone: [facility] 09-08-2023 10:18-0400 Heart rate 97 /min Dr. Jonathan Dillard Sr. Work Phone: [facility] 09-08-2023 10:18-0400 Inhaled oxygen flow rate 1 L/min Dr. Jonathan Dillard Sr. Work Phone: [facility] 09-08-2023 10:18-0400 Respiratory rate 18 /min Dr. Jonathan Dillard Sr. Work Phone: [facility] 09-08-2023 10:18-0400 SaO2% (BldA) [Mass fraction] 95 % Dr. Jonathan Dillard Sr. Work Phone: [facility] 09-08-2023 10:18-0400 Systolic blood pressure 99 mm[Hg] Dr. Jonathan Dillard Sr. Work Phone: [facility] 08-15-2023 11:54-0400 Diastolic Blood Pressure Non-Invasive [address] MARK JEREZ MD [facility] 08-15-2023 11:54-0400 Heart rate 91 /min DR MARK JEREZ MD [facility] 08-15-2023 11:54-0400 Respiratory rate 23 /min DR MARK JEREZ MD [facility] 08-15-2023 11:54-0400 Systolic Blood Pressure Non-Invasive [address] MARK JEREZ MD [facility] 08-15-2023 11:41-0400 Diastolic Blood Pressure Non-Invasive [address] MARK JEREZ MD [facility] 08-15-2023 11:41-0400 Heart rate 98 /min DR MARK JEREZ MD [facility] 08-15-2023 11:41-0400 Respiratory rate 19 /min DR MARK JEREZ MD [facility] 08-15-2023 11:41-0400 Systolic Blood Pressure Non-Invasive [address] MARK JEREZ MD [facility] 08-15-2023 11:25-0400 Body temperature 97.52 [degF] DR MARK JEREZ MD [facility] 08-15-2023 11:25-0400 Diastolic Blood Pressure Non-Invasive [address] MARK JEREZ MD [facility] 08-15-2023 11:25-0400 Heart rate 97 /min DR MARK JEREZ MD [facility] 08-15-2023 11:25-0400 Respiratory rate 24 /min DR MARK JEREZ MD [facility] 08-15-2023 11:25-0400 Systolic Blood Pressure Non-Invasive [address] MARK JEREZ MD [facility] 08-15-2023 11:15-0400 Respiratory Rate - Anes 25 br/min DR MARK JEREZ MD [facility] 08-15-2023 11:10-0400 Respiratory Rate - Anes 26 br/min DR MARK JEREZ MD [facility] 08-15-2023 11:05-0400 Respiratory Rate - Anes 9 br/min DR MARK JEREZ MD [facility] 08-15-2023 10:290400 Body height [address] MARK JEREZ MD [facility] 08-15-2023 10:29-0400 Body weight [address] MARK JEREZ MD [facility] 08-15-2023 10:290400 Body weight 34.89 kg/m2 DR MARK JEREZ MD [facility] 08-15-2023 10:190400 Body height [address] MARK JEREZ MD [facility] 08-15-2023 10:190400 Body temperature 98.06 [degF] DR MARK JEREZ MD [facility] 08-15-2023 10:190400 Body weight [address] MARK JEREZ MD [facility] 08-15-2023 10:19-0400 Heart rate 87 /min DR MARK JEREZ MD [facility] 08-10-2023 03:47-0400 Diastolic blood pressure 62 mm[Hg] [facility] 08-10-2023 03:47-0400 Heart rate 89 /min [facility] 03:47-0400 Respiratory rate 18 /min [facility]-10-2023 03:47-0400 SaO2% (BldA) [Mass fraction] 95 % Jonathan [facility] 08-10-2023 03:47-0400 Systolic blood pressure 108 mm[Hg] Jonathan [facility] 08-09-2023 22:56-0400 Body height 165.1 cm Jonathan [facility] 08-09-2023 22:56-0400 Body mass index (BMI) [Ratio] 29.3 kg/m2 Jonathan [facility] 08-09-2023 22:56-0400 Body temperature 98.9 [degF] Jonathan [facility] 08-09-2023 22:56-0400 Body weight 80.1 kg Jonathan [facility] 08-09-2023 22:56-0400 Inhaled oxygen flow rate 2 L/min MD Castillo [facility] 07-14-2023 19:07-0400 Diastolic blood pressure 43 mm[Hg] [employer]-Andrea Carlisle [employer] Work Phone: [facility] 07-14-2023 19:07-0400 Heart rate 92 /min [employer]-Andrea Carlisle [employer] Work Phone: [facility] 07-14-2023 19:07-0400 Respiratory rate 17 /min [employer]-Andrea Carlisle [employer] Work Phone: [facility] 07-14-2023 19:07-0400 SaO2% (BldA) [Mass fraction] 98 % [employer]C Barber Carlisle [employer] Work Phone: [facility] 07-14-2023 19:07-0400 Systolic blood pressure 104 mm[Hg] [employer]C Barber Carlisle [employer] Work Phone: [facility] 07-14-2023 17:25-0400 Inhaled oxygen flow rate 1.5 L/min [employer]C Barber Carlisle [employer] Work Phone: [facility] 07-14-2023 15:23-0400 Body mass index (BMI) [Ratio] 29.3 kg/m2 [employer]C Barber Carlisle [employer] Work Phone: [facility] 07-14-2023 15:23-0400 Body weight 80 kg [employer]C Barber Carlisle [employer] Work Phone: [facility] 07-14-2023 15:15-0400 Body height 165.1 cm [employer]C Barber Carlisle [employer] Work Phone: [facility] 07-14-2023 15:15-0400 Body temperature 97.4 [degF] [employer]C Barber Carlisle [employer] Work Phone: [facility] 05-04-2023 14:31-0400 Body height 165.1 cm [employer]C Barber Carlisle [employer] Work Phone: [facility] 05-04-2023 14:31-0400 Body mass index (BMI) [Ratio] 30.1 kg/m2 [employer]C Barber Carlisle [employer] Work Phone: [facility] 05-04-2023 14:31-0400 Body temperature 98.4 [degF] [employer]C Barber Carlisle [employer] Work Phone: [facility] 05-04-2023 14:31-0400 Body weight 82.1 kg [employer]C Barber Carlisle [employer] Work Phone: [facility] 05-04-2023 14:31-0400 Diastolic blood pressure 63 mm[Hg] [employer]C Barber Carlisle [employer] Work Phone: [facility] 05-04-2023 14:31-0400 Heart rate 78 /min [employer]C Barber Carlisle [employer] Work Phone: [facility] 05-04-2023 14:31-0400 Inhaled oxygen flow rate 1 L/min [employer]C Barber Carlisle [employer] Work Phone: [facility] 05-04-2023 14:31-0400 Respiratory rate 15 /min [employer]C Barber Carl[facility] [employer] Work Phone: [facility] 05-04-2023 14:31-0400 SaO2% (BldA) [Mass fraction] 96 % [employer]C Barber Carlisle [employer] Work Phone: [facility] 05-04-2023 14:31-0400 Systolic blood pressure 103 mm[Hg] [employer]C Barber Carlisle [employer] Work Phone: [facility] 04-19-2023 22:11-0400 Diastolic blood pressure 67 mm[Hg] [employer]C Barber Carlisle [employer] Work Phone: [facility] 04-19-2023 22:11-0400 Respiratory rate 17 /min [employer]C Barber Carlisle [employer] Work Phone: [facility] 04-19-2023 22:11-0400 SaO2% (BldA) [Mass fraction] 100 % [employer]C Barber Carlisle [employer] Work Phone: [facility] 04-19-2023 22:11-0400 Systolic blood pressure 121 mm[Hg] [employer]C Barber Carlisle [employer] Work Phone: [facility] 04-19-2023 20:00-0400 Body temperature 97.5 [degF] [employer]C Barber Carlisle [employer] Work Phone: [facility] 04-19-2023 20:00-0400 Heart rate 88 /min [employer]C Barber Carlisle [employer] Work Phone: [facility] 04-19-2023 20:00-0400 Inhaled oxygen flow rate 2 L/min [employer]C Barber Carlisle [employer] Work Phone: [facility] 04-19-2023 16:41-0400 Body height 165.1 cm [employer]C Barber Carlisle [employer] Work Phone: [facility] 04-19-2023 16:41-0400 Body mass index (BMI) [Ratio] 31.8 kg/m2 [employer]C Barber Carlisle [employer] Work Phone: [facility] 04-19-2023 16:41-0400 Body weight 86.9 kg [employer]C Barber Carlisle [employer] Work Phone: [facility] 04-04-2023 14:11-0400 Body temperature 97.4 [degF] [employer]C Barber Carlisle [employer] Work Phone: [facility] 04-04-2023 14:11-0400 Diastolic blood pressure 66 mm[Hg] [employer]C Barber Carlisle [employer] Work Phone: [facility] 04-04-2023 14:11-0400 Heart rate 76 /min [employer]C Barber Carlisle [employer] Work Phone: [facility] 04-04-2023 14:11-0400 Respiratory rate 18 /min [employer]C Barber Carlisle [employer] Work Phone: [facility] 04-04-2023 14:11-0400 SaO2% (BldA) [Mass fraction] 97 % [employer]C Barber Carlisle [employer] Work Phone: [facility] 04-04-2023 14:11-0400 Systolic blood pressure 124 mm[Hg] [employer]C Barber Carlisle [employer] Work Phone: [facility] 03-23-2023 14:35-0400 Body height 165.1 cm [employer]C Barber Carlisle [employer] Work Phone: [facility] 03-23-2023 14:35-0400 Body temperature 98.2 [degF] [employer]C Barber Carlisle [employer] Work Phone: [facility] 03-23-2023 14:35-0400 Diastolic blood pressure 65 mm[Hg] [employer]C Barber Carlisle [employer] Work Phone: [facility] 03-23-2023 14:35-0400 Heart rate 80 /min [employer]C Barber Solisson [employer] Work Phone: [facility] 03-23-2023 14:35-0400 Respiratory rate 16 /min [employer]C Barber Solisson [employer] Work Phone: [facility] 03-23-2023 14:35-0400 SaO2% (BldA) [Mass fraction] 99 % [employer]C Barber Carlisle [employer] Work Phone: [facility] 03-23-2023 14:35-0400 Systolic blood pressure 100 mm[Hg] [employer]C Barber Solisson [employer] Work Phone: [facility] 03-09-2023 15:29-0400 Body temperature 98.2 [degF] [employer]C Barber Solisson [employer] Work Phone: [facility] 03-09-2023 15:29-0400 Diastolic blood pressure 63 mm[Hg] [employer]C Barber Carlisle [employer] Work Phone: [facility] 03-09-2023 15:29-0400 Heart rate 89 /min [employer]C Barber Solisson [employer] Work Phone: [facility] 03-09-2023 15:29-0400 SaO2% (BldA) [Mass fraction] 96 % [employer]C Barber Solisson [employer] Work Phone: [facility] 03-09-2023 15:29-0400 Systolic blood pressure 117 mm[Hg] [employer]C Barber Solisson [employer] Work Phone: [facility] 03-09-2023 15:26-0400 Body height 165.1 cm [employer]C Barber Solisson [employer] Work Phone: [facility] 02-25-2023 13:27-0400 Heart rate 89 /min [employer]C Barber Carlisle [employer] Work Phone: [facility] 02-25-2023 13:27-0400 Respiratory rate 20 /min [employer]C Barber Carlisle [employer] Work Phone: [facility] 02-25-2023 11:49-0400 Body temperature 97.3 [degF] [employer]C Barber Carlisle [employer] Work Phone: [facility] 02-25-2023 11:49-0400 Diastolic blood pressure 44 mm[Hg] [employer]C Barber Carlisle [employer] Work Phone: [facility] 02-25-2023 11:49-0400 Inhaled oxygen flow rate 1 L/min [employer] Barber Carlisle [employer] Work Phone: [facility] 02-25-2023 11:49-0400 SaO2% (BldA) [Mass fraction] 98 % [employer]C Barber Carlisle [employer] Work Phone: [facility] 02-25-2023 11:49-0400 Systolic blood pressure 103 mm[Hg] [employer]C Barber Carlisle [employer] Work Phone: [facility] 02-25-2023 06:00-0400 Body mass index (BMI) [Ratio] 30.1 kg/m2 [employer] Barber Carl[place] [employer] Work Phone: [facility] 02-25-2023 06:00-0400 Body weight 82.2 kg [employer] Barber Carlisle [employer] Work Phone: [facility] 02-21-2023 13:46-0400 Body height 165.1 cm [employer]C Barber Carlisle [employer] Work Phone: [facility] 02-21-2023 07:00-0400 Inhaled oxygen concentration 50 % [employer] Barber Carlisle [employer] Work Phone: [facility] 02-18-2023 00:46-0400 Body temperature 96 [degF] [employer] Barber Carlisle [employer] Work Phone: [facility] 02-18-2023 00:46-0400 Diastolic blood pressure 65 mm[Hg] [employer]C Barber Carlisle [employer] Work Phone: [facility] 02-18-2023 00:46-0400 Heart rate 70 /min [employer] Barber Carlisle [employer] Work Phone: [facility] 02-18-2023 00:46-0400 Respiratory rate 18 /min [employer] Barber Carlisle [employer] Work Phone: [facility] 02-18-2023 00:46-0400 SaO2% (BldA) [Mass fraction] 100 % [employer]C Barber Carlisle [employer] Work Phone: [facility] 02-18-2023 00:46-0400 Systolic blood pressure 103 mm[Hg] [employer]C Barber Carlisle [employer] Work Phone: [facility] 02-17-2023 22:25-0400 Inhaled oxygen concentration 100 % [employer]C Barber Carlisle [employer] Work Phone: [facility] 02-17-2023 22:17-0400 Body height 165.1 cm [employer]C Barber Carlisle [employer] Work Phone: [facility] 02-17-2023 22:17-0400 Body mass index (BMI) [Ratio] 33.8 kg/m2 [employer]C Barber Carl[place] [employer] Work Phone: [facility] 02-17-2023 22:17-0400 Body weight 92.3 kg [employer]C Barber Carl[place] [employer] Work Phone: [facility] 01-11-2023 13:49-0500 Body mass index (BMI) [Ratio] 32.5 kg/m2 [employer]C Barber Carl[place] [employer] Work Phone: [facility] 01-11-2023 13:49-0500 Body temperature 98.5 [degF] [employer] Barber [place] [employer] Work Phone: [facility] 01-11-2023 13:49-0500 Body weight 88.45 kg [employer]C Barber Carlisle [employer] Work Phone: [facility] 01-11-2023 13:49-0500 Diastolic blood pressure 71 mm[Hg] [employer]C Barber Carlisle [employer] Work Phone: [facility] 01-11-2023 13:49-0500 Heart rate 82 /min [employer] Barber Carlisle [employer] Work Phone: [facility] 01-11-2023 13:49-0500 Respiratory rate 17 /min [employer] Barber Carlisle [employer] Work Phone: [facility] 01-11-2023 13:49-0500 SaO2% (BldA) [Mass fraction] 98 % [employer] Barber Carlisle [employer] Work Phone: [facility] 01-11-2023 13:49-0500 Systolic blood pressure 110 mm[Hg] [employer] Barber Carlisle [employer] Work Phone: [facility] 11-11-2022 10:49-0500 Body height 165 cm [employer] Barber Carlisle [employer] Work Phone: [facility] Work Phone: 11-11-2022 10:35-0500 Body mass index (BMI) [Ratio] 31.9 kg/m2 [employer] Barber Carlisle [employer] Work Phone: [facility] 11-11-2022 10:35-0500 Body temperature 98 [degF] [employer] Barber Carlisle [employer] Work Phone: [facility] 11-11-2022 10:35-0500 Body weight 87.08 kg [employer]C Barber Carlisle [employer] Work Phone: [facility] 11-11-2022 10:35-0500 Diastolic blood pressure 70 mm[Hg] [employer] Barber Carlisle [employer] Work Phone: [facility] 11-11-2022 10:35-0500 Heart rate 82 /min [employer] Barber Carlisle [employer] Work Phone: [facility] 11-11-2022 10:35-0500 Respiratory rate 18 /min [employer] Barber Carlisle [employer] Work Phone: [facility] 11-11-2022 10:35-0500 SaO2% (BldA) [Mass fraction] 91 % [employer]-C Barber [place] [employer] Work Phone: [facility] 11-11-2022 10:35-0500 Systolic blood pressure 115 mm[Hg] [employer] Barber Carlisle [employer] Work Phone: [facility] 07-27-2022 09:29-0400 Heart rate 93 /min DR TRACE MATTHEWS MD [address] 07-27-2022 09:13-0400 Body temperature 96.8 [degF] DR TRACE MATTHEWS MD [address] [place] [address] 07-27-2022 09:13-0400 Diastolic Blood Pressure NBP [address] TRACE MATTHEWS MD [address] [place] [address] 07-27-2022 09:13-0400 Heart rate 99 /min DR TRACE MATTHEWS MD [address] 07-27-2022 09:13-0400 Mean blood pressure 83 mm[Hg] DR TRACE MATTHEWS MD [address] [place] [address] 07-27-2022 09:13-0400 Reason For Taking VItal Signs DR TRACE MATTHEWS MD [address] [place] [address] 07-27-2022 09:13-0400 Systolic Blood Pressure NBP [address] TRACE MATTHEWS MD [address] [place] [address] 07-27-2022 04:38-0400 Body temperature 97.7 [degF] DR TRACE MATTHEWS MD [address] [place] [address] 07-27-2022 04:38-0400 Diastolic Blood Pressure NBP [address] TRACE MATTHEWS MD [address] 07-27-2022 04:38-0400 Heart rate 79 /min DR TRACE MATTHEWS MD [address] [place] [address] 07-27-2022 04:38-0400 Mean blood pressure 75 mm[Hg] DR TRACE MATTHEWS MD [address] [place] [address] 07-27-2022 04:38-0400 Reason For Taking VItal Signs DR TRACE MATTHEWS MD [address] [place] [address] 07-27-2022 04:38-0400 Respiratory rate 16 /min DR TRACE MATTHEWS MD [address] [place] [address] 07-27-2022 04:38-0400 Systolic Blood Pressure NBP [address] TRACE MATTHEWS MD [address] [place] [address] 07-26-2022 21:08-0400 Body temperature 98.24 [degF] DR TRACE MATTHEWS MD [address] [place] [address] 07-26-2022 21:08-0400 Diastolic Blood Pressure NBP [address] TRACE MATTHEWS MD [address] [place] [address] 07-26-2022 21:08-0400 Heart rate 113 /min DR TRACE MATTHEWS MD [address] [place] [address] 07-26-2022 21:08-0400 Mean blood pressure 74 mm[Hg] DR TRACE MATTHEWS MD [address] [place] [address] 07-26-2022 21:08-0400 Reason For Taking VItal Signs DR TRACE MATTHEWS MD [address] [place] [address] 07-26-2022 21:08-0400 Respiratory rate 18 /min DR TRACE MATTHEWS MD [address] [place] [address] 07-26-2022 21:08-0400 Systolic Blood Pressure NBP [address] TRACE MATTHEWS MD [address] [place] [address] 07-26-2022 16:00-0400 Respiratory rate 16 /min DR TRACE MATTHEWS MD [address] [place] [address] 07-26-2022 09:18-0400 Heart rate 100 /min DR TRACE MATTHEWS MD [address] [place] [address] 07-26-2022 00:35-0400 Diastolic blood pressure 52 mm[Hg] DR TRACE MATTHEWS MD [address] [place] [address] 07-26-2022 00:35-0400 Mean blood pressure 71 mm[Hg] DR TRACE MATTHEWS MD [address] [place] [address] 07-26-2022 00:35-0400 Systolic blood pressure 108 mm[Hg] DR TRACE MATTHEWS MD [address] [place] [address] 07-25-2022 07:55-0400 Heart rate 86 /min DR TRACE MATTHEWS MD [address] [place] [address] 07-24-2022 23:40-0400 Diastolic blood pressure 57 mm[Hg] DR TRACE MATTHEWS MD [address] [place] [address] 07-24-2022 23:40-0400 Mean blood pressure 81 mm[Hg] DR TRACE MATTHEWS MD [address] [place] [address] 07-24-2022 23:40-0400 Systolic blood pressure 128 mm[Hg] DR TRACE MATTHEWS MD [address] [place] [address] 07-24-2022 20:26-0400 Diastolic blood pressure 54 mm[Hg] DR TRACE MATTHEWS MD [address] [place] [address] 07-24-2022 20:26-0400 Mean blood pressure 77 mm[Hg] DR TRACE MATTHEWS MD [address] [place] [address] 07-24-2022 20:26-0400 Systolic blood pressure 124 mm[Hg] DR TRACE MATTHEWS MD [address] [place] [address] 07-21-2022 13:01-0400 Body temperature 96.62 [degF] DR TRACE MATTHEWS MD [address] [place] [address] 07-15-2022 11:49-0400 Diastolic blood pressure 45 mm[Hg] DR TRACE MATTHEWS MD [address] [place] [address] 07-15-2022 11:49-0400 Mean blood pressure 59 mm[Hg] DR TRACE MATTHEWS MD [address] [place] [address] 07-15-2022 11:49-0400 Systolic blood pressure 106 mm[Hg] DR TRACE MATTHEWS MD [address] [place] [address] 07-15-2022 09:23-0400 Diastolic blood pressure 80 mm[Hg] DR TRACE MATTHEWS MD [address] [place] [address] 07-15-2022 09:23-0400 Mean blood pressure 111 mm[Hg] DR TRACE MATTHEWS MD [address] [place] [address] 07-15-2022 09:23-0400 Systolic blood pressure 157 mm[Hg] DR TRACE MATTHEWS MD [address] [place] [address] 07-15-2022 08:53-0400 Diastolic blood pressure 85 mm[Hg] DR TRACE MATTHEWS MD [address] [place] [address] 07-15-2022 08:53-0400 Mean blood pressure 113 mm[Hg] DR TRACE MATTHEWS MD [address] [place] [address] 07-15-2022 08:53-0400 Systolic blood pressure 153 mm[Hg] DR TRACE MATTHEWS MD [address] [place] [address] 07-15-2022 04:10-0400 SaO2% (BldA) [Mass fraction] 97.5 % DR TRACE MATTHEWS MD [facility] 07-13-2022 19:08-0400 SaO2% (BldA) [Mass fraction] 98.9 % DR TRACE MATTHEWS MD [facility] 07-13-2022 17:39-0400 SaO2% (BldA) [Mass fraction] 99.1 % DR TRACE MATTHEWS MD [facility] 07-13-2022 16:25-0400 Body temperature 97.84 [degF] DR TRACE MATTHEWS MD [address] [place] [address] 07-13-2022 16:20-0400 Body temperature 97.77 [degF] DR TRACE MATTHEWS MD [facility] 07-13-2022 16:15-0400 Body temperature 97.7 [degF] DR TRACE MATTHEWS MD [facility] 07-13-2022 11:30-0400 Body height [address] TRACE MATTHEWS MD [address] [place] [address] 07-13-2022 11:30-0400 Body weight 98.[address] TRACE MATTHEWS MD [facility] 07-13-2022 11:30-0400 Body weight 36.25 kg/m2 DR TRACE MATTHEWS MD [facility] 07-11-2022 17:05-0400 Heart rate 97 /min DR TRACE MATTHEWS MD [facility] 07-11-2022 14:31-0400 Heart rate 91 /min DR TRACE MATTHEWS MD [facility] 07-11-2022 11:20-0400 Body weight 98.[address] TRACE MATTHEWS MD [facility] 07-11-2022 11:20-0400 Heart rate 92 /min DR TRACE MATTHEWS MD [facility] 07-11-2022 10:00-0400 Diastolic blood pressure 76 mm[Hg] MARIANA RAMOS MD [facility] 07-11-2022 10:00-0400 Heart rate 89 /min MARIANA RAMOS MD [facility] 07-11-2022 10:00-0400 Mean blood pressure 97 mm[Hg] MARIANA RAMOS MD [facility] 07-11-2022 10:00-0400 Systolic blood pressure 139 mm[Hg] MARIANA RAMOS MD [facility] 07-11-2022 08:30-0400 Diastolic blood pressure 74 mm[Hg] MARIANA RAMOS MD [facility] 07-11-2022 08:30-0400 Heart rate 92 /min MARIANA RAMOS MD [facility] 07-11-2022 08:30-0400 Respiratory rate 16 /min MARIANA RAMOS MD [facility] 07-11-2022 08:30-0400 Systolic blood pressure 147 mm[Hg] MARIANA RAMOS MD [facility] 07-11-2022 07:34-0400 Body temperature 98.42 [degF] MARIANA RAMOS MD [facility] 07-11-2022 07:34-0400 Diastolic blood pressure 86 mm[Hg] MARIANA RAMOS MD [facility] 07-11-2022 07:34-0400 Heart rate 92 /min MARIANA RAMOS MD [facility] 07-11-2022 07:34-0400 Mean blood pressure 110 mm[Hg] MARIANA RAMOS MD [facility] 07-11-2022 07:34-0400 Respiratory rate 18 /min MARIANA RAMOS MD [facility] 07-11-2022 07:34-0400 Systolic blood pressure 158 mm[Hg] MARIANA RAMOS MD [facility] 12-04-2021 13:19-0500 Diastolic blood pressure 79 mm[Hg] LEONA RIOS MD [facility] 12-04-2021 13:19-0500 Heart rate 101 /min LEONA RIOS MD [facility] 12-04-2021 13:19-0500 Reason For Taking VItal Signs LEONA RIOS MD [facility] 12-04-2021 13:19-0500 Respiratory rate 18 /min LEONA RIOS MD [facility] 12-04-2021 13:19-0500 Systolic blood pressure 140 mm[Hg] LEONA RIOS MD [facility] 12-04-2021 11:12-0500 Diastolic blood pressure 76 mm[Hg] LEONA RIOS MD [facility] 12-04-2021 11:12-0500 Heart rate 106 /min LEONA RIOS MD [facility] 12-04-2021 11:12-0500 Reason For Taking VItal Signs LEONA RIOS MD [facility] 12-04-2021 11:12-0500 Respiratory rate 18 /min LEONA RIOS MD [facility] 12-04-2021 11:12-0500 Systolic blood pressure 139 mm[Hg] LEONA RIOS MD [facility] 12-04-2021 08:20-0500 Body temperature 98.24 [degF] LEONA RIOS MD [facility] 12-04-2021 08:20-0500 Diastolic blood pressure 79 mm[Hg] LEONA RIOS MD [facility] 12-04-2021 08:20-0500 Heart rate 98 /min LEONA RIOS MD [facility] 12-04-2021 08:20-0500 Respiratory rate 16 /min LEONA RIOS MD [facility] 12-04-2021 08:20-0500 Systolic blood pressure 145 mm[Hg] LEONA RIOS MD [facility] 09-15-2021 20:35-0400 Diastolic blood pressure 80 mm[Hg] JANKI ADAMS MD [facility] 09-15-2021 20:35-0400 Heart rate 100 /min JANKI ADAMS MD [facility] 09-15-2021 20:35-0400 Mean blood pressure 103 mm[Hg] JANKI ADAMS MD [facility] 09-15-2021 20:35-0400 Respiratory rate 22 /min JANKI ADAMS MD [facility] 09-15-2021 20:35-0400 Systolic blood pressure 148 mm[Hg] JANKI ADAMS MD [facility] 09-15-2021 19:24-0400 SaO2% (BldA) [Mass fraction] 99 % JANKI ADAMS MD [facility] 09-15-2021 18:26-0400 Body temperature 99.14 [degF] JANKI ADAMS MD [facility] 09-15-2021 18:26-0400 Body weight 96 kg JANKI ADAMS MD [facility] 09-15-2021 18:26-0400 Diastolic blood pressure 88 mm[Hg] JANKI ADAMS MD [facility] 09-15-2021 18:26-0400 Heart rate 107 /min JANKI ADAMS MD [facility] 09-15-2021 18:26-0400 Respiratory rate 20 /min JANKI ADAMS MD [facility] 09-15-2021 18:26-0400 Systolic blood pressure 156 mm[Hg] JANKI ADAMS MD [facility] Encounters Encounter Date Encounter Type Care Provider Facility Start: 09-26-2025 End: 09-26-2025 ambulatory [facility] Facility:[facility] Start: 09-25-2025 ambulatory Jonathan Gilma Jewell ty:[facility] Start: 09-18-2025 ambulatory Jonathan Gilma Hinds Facili ty:[facility] Start: 09-11-2025 ambulatory Jonathan Gilma Hinds Facili ty:[facility] Start: 09-10-2025 End: 09-10-2025 Emergency department patient visit Royce Vigil Facility:[facility] Start: 09-09-2025 ambulatory Jonathan Gilma ELMORE Facili ty:[facility] Start: 09-06-2025 ambulatory Jonathan Gilma ELMORE Facili ty:[facility] Start: 09-04-2025 ambulatory Jonathan Gilma ELMORE Facili ty:[facility] Start: 11-01-2023 Patient encounter status Marlon little Dionna CHUSUSPENDER CUTTER Work Phone: [facility] Work Phone: Start: 10-31-2023 End: 10-31-2023 [facility] Start: 10-31-2023 Evaluation and manag ement of inpatient VARSHA SOTELO [facility] Start: 10-31-2023 End: 10-31-2023 Office outpatient visit 25 minutes Elida CHUSUSPENDER CUTTER Work Phone: [facility] [place] Comment on above: Preop cardiovascular exam (Primary Dx); Chronic systolic heart failure (CMS/HCC) Start: 10-31-2023 End: 10-31-2023 Patient encounter status Elida L Dionna JO-SUSPENDER CUTTER Work Phone: [facility] Work Phone: Start: 10-31-2023 End: 10-31-2023 ambulatory ELIDA VILLAREAL [facility] Start: 10-28-2023 End: 11-02-2023 ambulatory RITU HARRELL [facility] Start: 10-28-2023 End: 10-28-2023 ambulatory BARBER MORALES [facility] Start: 10-28-2023 End: 10-28-2023 Encounter for other preprocedural examination BARBER MORALES [facility] Start: 10-28-2023 End: 10-28-2023 Admission to establishment [facility] Work Phone: Start: 10-28-2023 End: 10-28-2023 Subsequent hospital visit by physician Marnie [id number] Cr [id number] Holter/Ecg Resource [facility] [place] Comment on above: Encounter for preadm ission testing Start: 10-20-2023 End: 10-20-2023 ambulatory BARBER MORALES [facility] Start: 10-17-2023 End: 10-17-2023 [facility] Start: 10-17-2023 End: 10-17-2023 Office outpatient visit 40 minutes Varsha Sotelo MD Work Phone: [facility] [place] Comment on above: Colovaginal fistula (Primary Dx) Start: 10-11-2023 End: 10-11-[address] Jonathan Dillard Sr. Work Phone: [facility] Work Phone: Start: 10-11-2023 End: 10-11-[address] Jonathan Dillard Sr. Work Phone: [facility] Ultrasound Work Phone: Start: 10-11-[address] Jonathan acevedo Sr. Work Phone: [facility] Start: 10-04-[address] Jonathan acevedo Sr. Work Phone: [facility] Start: 10-03-[address] Jonathan acevedo Sr. Work Phone: [facility] Start: 09-15-2023 End: 09-28-2023 Encounter for preprocedural cardiovascular examination VARSHA SOTELO [facility] Start: 09-15-2023 End: 09-28-2023 Evaluation and management of inpatient Velvet Jerez DO Work Phone: [facility] Start: 09-15-2023 End: 09-28-2023 Patient encounter status Velvet Jerez DO Work Phone: [facility] Start: 09-15-2023 Non-patient / Non-visit Dr. Kalen Quintero. Work Phone: [facility] Start: 09-15-2023 Non-patient / Non-visit Dr. Kalen Hinds Work Phone: [facility] Work Phone: Start: 09-14-2023 End: 09-15-2023 Emergency department patient visit Dr. Jonathan Dillard Sr. Work Phone: [facility]Emer[facility] Work Phone: Start: 09-13-2023 End: 09-13-[address] Jonathan Dillard SrChe Work Phone: [facility] Work Phone: Start: 09-13-2023 End: 09-13-[address] Jonathan Dillard Sr. Work Phone: [facility] Start: 09-13-[address] Jonathan acevedo Sr. Work Phone: [facility] Start: 09-09-2023 End: 09-09-[address] Jonathan Dillard Sr. Work Phone: [facility]Laboratory, Specimen Work Phone: Start: 09-08-[address] Jonathan Dillard Sr. Work Phone: [facility] Start: 09-08-2023 End: 09-08-[address] Jonathan Dillard Sr. Work Phone: [facility] Work Phone: Start: 08-31-2023 End: 08-31-2023 ambulatory [facility] Work Phone: Start: 08-31-2023 End: 08-31-2023 Departed Referred [facility] Start: 08-31-2023 Registered Referred MD Jonathan ELMORE [facility] Start: 08-29-2023 End: 08-30-[address] OSEI WOODWARD MD Facility:A Start: 08-29-2023 End: 08-29-[address] OSEI WOODWARD MD [facility] Start: 08-17-2023 End: 08-18-[address] MARK JEREZ MD Facility:B Start: 08-17-2023 End: 08-17-[address] MARK JEREZ MD [facility] Start: 08-16-2023 End: 08-16-2023 ambulatory MD Jonathan Dillard [facility] Work Phone: Start: 08-16-2023 End: 08-16-2023 Departed Referred MD Jonathan ELMORE [facility] Start: 08-15-[address] MARK LOPEZ MD Facility:B Start: 08-15-2023 End: 08-16-[address] MARK JEREZ MD Facility:B Start: 08-15-2023 End: 08-15-[address] MARK JEREZ MD [facility] Start: 08-09-2023 End: 08-10-2023 Emergency department patient visit MD Jonathan ELMORE [facility] Work Phone: Start: 07-14-2023 End: 07-14-2023 Emergency department patient visit [employer] Barber Carlisle [employer] Work Phone: [facility] Work Phone: Start: 06-28-2023 End: 06-28-2023 ambulatory MD Jonathan Dillard [facility] Work Phone: Start: 06-28-2023 End: 06-28-2023 Departed Referred MD Jonathan ELMORE [facility] Start: 06-28-2023 Registered Referred [employer] Flora Carlisle [employer] Work Phone: [facility] Start: 06-13-2023 End: 06-13-2023 ambulatory [employer] Barber Carlisle [employer] Work Phone: [facility] Work Phone: Start: 06-13-2023 End: 06-13-2023 Departed Referred [employer] Barber Carlisle [employer] Work Phone: [facility] Start: 05-04-2023 End: 05-04-2023 Patient encounter procedure [employer] Barber Carlisle [employer] Work Phone: [facility] Work Phone: Start: 05-04-2023 Registered Recurring [employer] Conor Carlisle [employer] Work Phone: [facility] Start: 04-19-2023 End: 04-19-2023 Emergency department patient visit [employer] Barber Carlisle [employer] Work Phone: [facility] Start: 04-12-2023 End: 04-12-2023 ambulatory [employer] Barber Carlisle [employer] Work Phone: [facility] Work Phone: Start: 04-12-2023 End: 04-12-2023 Departed Referred [employer] Barber Carlisle [employer] Work Phone: [facility] Start: 04-04-2023 End: 04-04-2023 Patient encounter procedure [employer] Barber Carlisle [employer] Work Phone: [facility]Laboratory, Specimen Start: 04-04-2023 End: 04-04-2023 Patient encounter procedure [employer] Barber Carlisle [employer] Work Phone: [facility] Start: 03-28-2023 End: 03-28-2023 ambulatory [employer] Barber Carlisle [employer] Work Phone: [facility] Work Phone: Start: 03-28-2023 End: 03-28-2023 Departed Referred [employer] Barber Carlisle [employer] Work Phone: [facility] Start: 03-28-2023 Registered Referred [employer] Flora Cralisle [employer] Work Phone: [facility] Start: 03-23-2023 End: 03-23-2023 Patient encounter procedure [employer] Barber Carlisle [employer] Work Phone: [facility] Start: 03-18-2023 End: 03-18-2023 ambulatory [employer] Barber Carlisle [employer] Work Phone: [facility] Work Phone: Start: 03-18-2023 End: 03-18-2023 Patient encounter procedure [employer] Barber Carlisle [employer] Work Phone: [facility] Start: 03-09-2023 Registered Recurring [employer] Conor Carlisle [employer] Work Phone: [facility] Start: 03-09-2023 End: 03-09-2023 Patient encounter procedure [employer] Barber Carlisle [employer] Work Phone: [facility] Start: 03-08-2023 Registered Referred [employer] Flora Carlisle [employer] Work Phone: [facility] Start: 03-04-2023 Registered Referred [employer] Flora Carlisle [employer] Work Phone: [facility] Start: 02-28-2023 End: 02-28-2023 ambulatory [employer] Barber Carlisle [employer] Work Phone: [facility] Work Phone: Start: 02-28-2023 End: 02-28-2023 Departed Referred [employer] Barber Carlisle [employer] Work Phone: [facility] Start: 02-25-2023 Non-patient / Non-visit [employer] Deepika Carlisle [employer] Work Phone: [facility] Start: 02-24-2023 Non-patient / Non-visit [employer] L asif Solisson [employer] Work Phone: [facility] Start: 02-23-2023 Non-patient / Non-visit [employer] L asif Solisson [employer] Work Phone: [facility] Start: 02-23-2023 Non-patient / Non-visit [employer] L asif Solisson [employer] Work Phone: [facility] Start: 02-22-2023 Non-patient / Non-visit [employer] L asif Solisson [employer] Work Phone: [facility] [facility] Start: 02-22-2023 Non-patient / Non-visit [employer]-C L indalivia Lorson [employer] Work Phone: [facility] Start: 02-21-2023 Non-patient / Non-visit [employer]-C L asif Solisson [employer] Work Phone: [facility] Start: 02-21-2023 Non-patient / Non-visit [employer]-C L indalivia Solisson [employer] Work Phone: [facility] Start: 02-20-2023 Non-patient / Non-visit [employer]-C L indsey Lorson [employer] Work Phone: [facility] Start: 02-20-2023 Non-patient / Non-visit [employer]-C L indalivia Lorson [employer] Work Phone: [facility] Start: 02-20-2023 Non-patient / Non-visit [employer]-C L indsey Lorson [employer] Work Phone: [facility] Start: 02-19-2023 Non-patient / Non-visit [employer]-C L asif Solisson [employer] Work Phone: [facility] Start: 02-19-2023 Non-patient / Non-visit [employer]-C L asif Solisson [employer] Work Phone: [facility] Start: 02-18-2023 Non-patient / Non-visit [employer]-C L asif Solisson [employer] Work Phone: [facility] Start: 02-18-2023 Non-patient / Non-visit [employer]-C L asif Solisson [employer] Work Phone: [facility] Start: 02-18-2023 Non-patient / Non-visit [employer]-C L indalivia Lorson [employer] Work Phone: [facility] Start: 02-18-2023 End: 02-25-2023 Evaluation and management of inpatient [employer]C Barber Carlisle [employer] Work Phone: [facility] Start: 02-07-2023 End: 02-07-2023 ambulatory [employer]-C Barber Carlisle [employer] Work Phone: [facility] Work Phone: Start: 02-07-2023 End: 02-07-2023 Departed Referred [employer] Barber Carlisle [employer] Work Phone: [facility] Start: 02-07-2023 Registered Referred [employer]-C Flora Carlisle [employer] Work Phone: [facility] Start: 01-11-2023 End: 01-11-2023 Patient encounter procedure [employer] Barber Carlisle [employer] Work Phone: [facility] Start: 01-11-2023 Registered Recurring [employer]-C Conor Carlisle [employer] Work Phone: [facility] Start: 11-11-2022 End: 11-11-2022 Patient encounter procedure [employer] Barber Carlisle [employer] Work Phone: [facility] Start: 11-01-2022 End: 11-01-2022 ambulatory [employer] Barber Carlisle [employer] Work Phone: [facility] Work Phone: Start: 11-01-2022 End: 11-01-2022 Departed Referred [employer] Barber Carlisle [employer] Work Phone: [facility] Start: 11-01-2022 Registered Referred [employer] Flora Carlisle [employer] Work Phone: [facility] Start: 10-26-2022 End: 10-27-2022 ambulatory TRACE MATTHEWS MD Facility:B Start: 10-26-2022 End: 10-26-[address] TRACE MATTHEWS MD [facility] Start: 10-05-2022 End: 10-05-2022 Patient encounter procedure RENETTA ASTORGA FOREIGN AGENT-SUSPENDER CUTTER [facility] Start: 10-05-2022 End: 10-06-2022 ambulatory [employer] Barber Carlisle [employer] Work Phone: [facility] Work Phone: Start: 10-05-2022 End: 10-05-2022 Departed Referred [employer] Barber Carlisle [employer] Work Phone: [facility] Start: 10-05-2022 Registered Referred [facility] Start: 09-29-2022 End: 09-29-2022 ambulatory [employer] Barber Carlisle [employer] Work Phone: [facility] Work Phone: Start: 09-29-2022 End: 09-29-2022 Departed Referred [employer] Barber Carlisle [employer] Work Phone: [facility] Start: 09-29-2022 Registered Referred [facility] Start: 09-09-2022 End: 09-09-2022 Patient encounter procedure RENETTA ASTORGA FOREIGN AGENT-[facility] Start: 09-08-2022 End: 09-08-2022 ambulatory [facility] Work Phone: Start: 09-08-2022 End: 09-08-2022 Departed Referred [facility] Start: 09-08-2022 Registered Referred [facility] Start: 09-01-2022 End: 09-01-2022 ambulatory [facility] Work Phone: Start: 09-01-2022 End: 09-01-2022 Departed Referred [facility] Start: 09-01-2022 Registered Referred [facility] Start: 08-26-2022 End: 08-26-2022 ambulatory [facility] Work Phone: Start: 08-26-2022 End: 08-26-2022 Departed Referred [facility] Start: 08-12-2022 End: 08-12-[address] TRACE MATTHEWS MD [facility] Start: 08-10-2022 End: 08-10-2022 Admission to same day surgery center BARBER CARLISLE FOREIGN AGENT-SUSPENDER CUTTER [facility] Start: 08-02-2022 Registered Referred [facility] Start: 07-14-2022 End: 07-14-2022 Admission to same day surgery center ARYAN VAZ FOREIGN AGENT-SUSPENDER CUTTER [facility] Start: 07-11-2022 End: 07-27-2022 Evaluation and management of inpatient DR TRACE MATTHEWS MD [facility] Start: 07-11-2022 End: 07-11-2022 Emergency department patient visit MARIANA RAMOS MD [facility] Start: 12-04-2021 End: 12-04-2021 Emergency department patient visit LEONA RIOS MD [facility] Start: 09-15-2021 End: 09-15-2021 Emergency department patient visit JANKI ADAMS MD [facility] Start: 09-15-2021 End: 09-15-2021 Patient encounter procedure BARBER CARLISLE FOREIGN AGENT-SUSPENDER CUTTER [facility] Start: 08-15-2017 Ambulatory Ellis Conrad [...] 09-28-2023 Sars-cov-2 detection by dna/rna Nancy Treviño FOREIGN AGENT-[facility] Work Phone: Start: 09-28-2023 Blood count complete [...] 09-27-2023 Sars-cov-2 detection by dna/rna Nancy Treviño FOREIGN AGENT-[facility] Work Phone: Start: 09-27-2023 CBC panel - [...] MD Work Phone: Start: 09-22-2023 CASE REQUEST TIRE MOUNTER BARBER CARLISLE Start: 09-22-2023 Glucose [Mass/volume] in [...] 09-15-2023 Culture bacterial blood aerobic w/id isolates Gian Rush MD Work Phone: Start: 09-15-2023 ADMIT [...] of abdomen and pelvis with intravenous contrast [employer] Barber Carlisle [employer] Work Phone: Start: 04-19-2023 Computed tomography of abdomen and pelvis with intravenous contrast [employer] Barber Irmaethan [employer] Work Phone: Start: 04-12-2023 Urine culture [employer] Barber Carlisle [employer] Work Phone: Start: 03-18-2023 Bilateral mammography [employer] Barber Carlisle [employer] Work Phone: Start: 03-18-2023 Ultrasonography of breast [employer] Barber Solisethan [employer] Work Phone: Start: 03-18-2023 CT of soft tissues of neck with contrast [employer] Barber Orestes [employer] Work Phone: Start: 02-20-2023 Plain chest X-ray [employer] Barber Carlisle [employer] Work Phone: Start: 02-19-2023 Plain chest X-ray [employer] Barber Carlisle [employer] Work Phone: Start: 02-18-2023 Ultrasonography of thorax [employer] Barber Carlisle [employer] Work Phone: Start: 02-18-2023 CT of chest without contrast [employer] Carlton Carlisle [employer] Work Phone: Start: 02-17-2023 CT of head without contrast [employer] Barber Carlisle [employer] Work Phone: Start: 02-17-2023 Plain chest X-ray [employer] Barber Carlisle [employer] Work Phone: Start: 07-13-2022 Excision of cervical intervertebral disc BARBER CARLISLE [employer] AGENT-SUSPENDER CUTTER Comment on above: ACDF Appendectomy Kandi Sharma Appendectomy BARBER ORESTES FOREIGN AGENT-SUSPENDER CUTTER Comment on above: left water taken off Arthroscopic knee operation BARBER CARLISLE FOREIGN AGENT-SUSPENDER CUTTER Comment on above: right Arthroscopy of knee Kandi rai Bacteria identified in Blood by Culture [employer] Barber Orestes [employer] Work Phone: Cardiac catheter (physical object) BARBER SOLISETHAN FOREIGN AGENT-SUSPENDER CUTTER Comment on above: years ago Cardiac catheterization Marilyn Sharma Cataract surgery Kandi Castorena er Cholecystectomy Kandi Francis r Cholecystectomy BARBER ALLA ON FOREIGN AGENT-SUSPENDER CUTTER Clostridium difficile detection [employer] Barber Carlisle [employer] Work Phone: Colonoscopy Kandi Sharma Colonoscopy BARBER ORESTES FOREIGN AGENT-SUSPENDER CUTTER Esophagogastroduodenoscopy E gerson Sharma Esophagogastroduodenoscopy Deepika CARLISLE FOREIGN AGENT-SUSPENDER CUTTER Ligation of fallopian tube E gerson Sharma Ligation of fallopian tube Deepika CARLISLE FOREIGN AGENT-SUSPENDER CUTTER Lumpectomy of breast Kandi dorantes Lumpectomy of breast BARBER CARLISLE FOREIGN AGENT-SUSPENDER CUTTER Comment on above: left None (qualifier value) FLORA CARLISEL FOREIGN AGENT-SUSPENDER CUTTER Phacoemulsification of cataract with intraocular lens implantation BARBER CARLISLE FOREIGN AGENT-SUSPENDER CUTTER Comment on above: both eyes Urine culture Urine culture [employer] Barber Carlisle [employer] Work Phone: Urine culture [employer]-C Barber Solisethan [employer] Work Phone: Viral antigen assay [employer]-C Bhavna godfrey Solisethan [employer] Work Phone: Plan of Treatment Date Care Activity Detail Author Start: 10-31-2024 Creatinine measurement Creatinine Le abiodun [facility] Start: 10-31-2024 Potassium measurement Potassium Arun poe [facility] Start: 09-20-2024 Echocardiography Echocardiogram [facility] Start: 06-20-2024 Glaucoma screening [facility] Start: 12-19-2023 Hemoglobin A1c measurement [facility] Start: 11-07-2023 End: 11-01-2024 Renal function 2000 panel - Serum or Plasma Renal Function Panel Lab Routine Chronic systolic heart failure (CMS/HCC) Expected: 11/07/2023 (Approximate), Expires: 11/01/2024 [facility] Service Area Work Phone: Comment on above: Expected: 11/07/2023 (Approximate), Expires: 11/01/2024 Start: 2023 End: 2023 Admission to same day surgery center 2023 10:00 AM EST - 2023 1:35 PM [place] [address] [address] [place] [id number] [place] [id number] Department [place] [address] Resection Laparoscopy Sigmoid Colon [54870 (CPT )] [facility] [place] Comment on above: Resection Laparoscop y Sigmoid Colon [17648 (CPT )] Start: 2023 End: 2023 Laparoscopy colectomy partial w/anastomosis Resection Laparoscopy Sigmoid Colon Diverticulitis 2023 10:00 AM EST Virtual [facility] Start: 2023 Subsequent hospital visit by physician 2023 8:30 AM EST Hospital [place] [facility] [place] [address] [place] [address] [place] [address] [address] Department of Surgery-Colorectal [place] [id number] [facility] [place] Start: 10-31-2023 End: 10-31-2023 Patient encounter procedure 10/31/2023 11:40 AM EST Office Visit [facility] [address] [address] Maulik [address] [place] [phone] Elida Villareal, FOREIGN AGENT-SUSPENDER CUTTER [address] [place] [address] [facility] Start: 10-28-2023 End: 10-28-2023 Admission to establishment 10/28/2023 8:45 AM EST Pre-Admission Testing [facility] [address] [place] [phone] [facility] Start: 10-17-2023 End: 10-17-2024 CBC W Auto Differential panel - Blood CBC and Auto Differential Lab Routine Colovaginal fistula Expected: 10/17/2023 (Approximate), Expires: 10/17/[address] [facility] Work Phone: Comment on above: Expected: 10/17/2023 (Approximate), Expires: 10/17/2024 Start: 10-17-2023 End: 10-17-2024 Comprehensive metabolic 2000 panel - Serum or Plasma Comprehensive metabolic panel Lab Routine Colovaginal fistula Expected: 10/17/2023 (Approximate), Expires: 10/17/2024 [facility] Service Area Work Phone: Comment on above: Expected: 10/17/2023 (Approximate), Expires: 10/17/2024 Start: 10-17-2023 End: 10-17-2024 Prealbumin [Mass/volume] in Serum or Plasma Prealbumin Lab Routine Colovaginal fistula Expected: 10/17/2023 (Approximate), Expires: 10/17/[address] [facility] Work Phone: Comment on above: Expected: 10/17/2023 (Approximate), Expires: 10/17/2024 Start: 10-17-2023 End: 10-17-2023 ambulatory [facility] [place] Start: 10-12-2023 End: 10-12-2023 ambulatory [facility] [place] Start: 09-15-2023 [facility] Start: 09-15-2023 Bacteria identified in Blood by Culture Blood Culture [facility] Start: 09-15-2023 Hospital admission, emergency, from emergency room, medical nature [facility] Start: 09-15-2023 End: 09-15-2023 Blood culture [facility] Start: 09-15-2023 Blood culture [facility] Start: 09-08-[address] [facility] Work Phone: Start: 08-31-2023 Bacteria identified in Urine by Culture [facility] Start: 08-31-2023 [facility] Start: 03-23-[address] [facility] Work Phone: Start: 02-28-2023 [facility] Start: 02-27-2023 [facility] Start: 02-26-2023 [facility] Start: 02-25-2023 Patient discharge [facility] Start: 02-23-2023 Physiotherapy of chest [facility] Start: 02-21-2023 Care planning and pr oblem solving actions [facility] Start: 02-20-2023 End: 02-21-2023 [facility] Start: 02-20-2023 [facility] Start: 02-19-2023 Referral to admission nurse [facility] Start: 02-18-2023 Vital signs measurements [facility] Start: 02-18-2023 Consultation [facility] Start: 02-18-2023 Speech therapy assessment [facility] Start: 02-18-2023 Following clinical p athway protocol [facility] Start: 02-18-2023 Assessment of risk o f venous thromboembolism [facility] Start: 02-18-2023 Assessment using assessment scale [facility] Start: 02-18-2023 Catheterization of vein [facility] Start: 02-18-2023 Consultation [facility] Start: 02-18-2023 Elevation of head of bed [facility] Start: 02-18-2023 Inhalation therapy procedure [facility] Start: 02-18-2023 Insertion of cathete r into peripheral vein [facility] Start: 02-18-2023 Measuring intake and output [facility] Start: 02-18-2023 Mouth care [facility] Start: 02-18-2023 Notification of physician [facility] Start: 02-18-2023 Oxygen therapy [facility] Start: 02-18-2023 Patient referral to dietitian [facility] Start: 02-18-2023 Providing care accor ding to standard [facility] Start: 02-18-2023 Referral to occupati onal therapist [facility] Start: 02-18-2023 Referral to service [facility] Start: 02-18-2023 Removal of urinary catheter [facility] Start: 02-18-2023 Speech therapy assessment [facility] Start: 02-18-2023 Vital signs measurements [facility] Start: 02-18-2023 End: 02-18-2023 [facility] Start: 02-18-2023 Bacterial nucleic ac id assay [facility] Start: 02-18-2023 Streptococcus pneumo niae antigen assay [facility] Start: 02-18-2023 [facility] Start: 02-18-2023 Verification routine [facility] Start: 04-07-2023 Admission procedure [facility] Start: 02-18-2023 CT of chest without contrast Chest without Contrast [facility] Start: 02-17-2023 End: 02-17-2023 Blood culture [facility] Start: 02-17-2023 Airway suction technique [facility] Start: 02-17-2023 [facility] Start: 2009 Hepatitis B Vaccines (1 of 3 - Risk 3-dose series) Hepatitis B Vaccines (1 of 3 - Risk 3-dose series) [facility] Start: [address] [facility] Start: 1999 Zoster Vaccines (1 of 2) Zoste r Vaccines (1 of 2) [facility] Start: [address] [facility] Start: 1989 Screening for malign ant neoplasm of breast [facility] Start: 1971 DTaP/Tdap/Td Vaccine s (1 - Tdap) DTaP/Tdap/Td Vaccines (1 - Tdap) [facility] Start: [address] [facility] Start: 1968 Hepatitis A Vaccines (1 of 2 - Risk 2-dose series) Hepatitis A Vaccines (1 of 2 - Risk 2-dose series) [facility] Start: 1968 Urine screening for protein [facility] Start: [address] [facility] Start: 1959 Diabetic foot examination [facility] Start: 1955 Pneumococcal Vaccine : 65+ Years (1 - PCV) Pneumococcal Vaccine: 65+ Years (1 - PCV) [facility] Start: [address] [facility] Start: 05-04-1950 COVID-19 Vaccine (#1) COVID-19 Vacci ne (#1) [facility] Start: 05-04-[address] [facility] Start: 1949 Lipid panel [facility] Start: 1949 Medicare Annual Well ness Visit [facility] Start: 1949 Screening for malign ant neoplasm of colon [facility] Bacteria identified in Blood by Culture Blood Culture [facility] Bacteria identified in Sputum by Respiratory culture [facility] End: 09-23-2023 Cardiac catheterization study [facility] Work Phone: CBC panel - Blood by Automated count [facility] Work Phone: CBC W Auto Different ial panel - Blood [facility] Work Phone: CBC W Auto Different ial panel - Blood [facility] CBC W Auto Different ial panel - Blood [facility] End: 09-28-2023 Cobalamin (Vitamin B12) [Mass/volume] in Serum or Plasma [facility] Work Phone: CT Neck W contrast IV [facility] ECG 12 lead ECG 12 lead ECG Routine Encounter for preadmission testing 11/02/2023 2:17 PM EST [facility] Work Phone: Electrocardiogram, 1 2-lead PRN ACS symptoms [facility] Work Phone: Ferritin [Mass/volum e] in Serum or Plasma [facility] Work Phone: Ferritin [Mass/volum e] in Serum or Plasma [facility] Ferritin [Mass/volum e] in Serum or Plasma [facility] Folate [Mass/volume] in Serum or Plasma [facility] Work Phone: End: 09-28-2023 Folate [Mass/volume] in Serum or Plasma [facility] Work Phone: Glucose [Mass/volume ] in Serum or Plasma [facility] Work Phone: Glucose [Mass/volume ] in Serum or Plasma [facility] Work Phone: End: 09-15-2023 Incentive spirometry Instruct [facility] Work Phone: Iron and Iron bindin g capacity panel - Serum or Plasma [facility] Work Phone: Iron and Iron bindin g capacity panel - Serum or Plasma [facility] Iron and Iron bindin g capacity panel - Serum or Plasma [facility] Lactate dehydrogenas e measurement [facility] Work Phone: Lactate dehydrogenas e measurement [facility] Lactate dehydrogenas e measurement [facility] Legionella pneumophi la Ag [Presence] in Urine [facility] Magnesium [Mass/volu me] in Serum or Plasma [facility] Magnesium [Mass/volu me] in Serum or Plasma [facility] Service Area Work Phone: Magnesium [Mass/volu me] in Serum or Plasma [facility] Work Phone: Microscopic observat ion [Identifier] in Unspecified specimen by Gram stain Gram Stain [facility] Patient Education [facility] Work Phone: Patient referral [facility] Work Phone: Renal function 1999 panel - Serum or Plasma [facility] Work Phone: Renal function 1999 panel - Serum or Plasma [facility] Work Phone: Respiratory Culture Respiratory Culture [facility] Reticulocyte count [facility] Work Phone: Reticulocyte count [facility] Vitamin B12 measurement [facility] Work Phone: Vitamin B12 measurement [facility] Immunizations Immunization Date Immunization Notes Care Provider Kemar morales 08-09-2023 influenza virus vaccine, unspecified formulation DR OSEI WOODWARD MD [facility] 08-23-2022 influenza virus vaccine, unspecified formulation DR OSEI WOODWARD MD [facility] 11-28-2021 influenza virus vaccine, unspecified formulation MARIANA RAMOS MD [facility] [place] 11-28-2021 influenza, injectabl e, quadrivalent, preservative free Jonathan Deperro CATARINA [facility] 11-28-2021 influenza, seasonal, injectable [facility] 09-16-2021 influenza, high dose seasonal, preservative-free; Translations: [Fluad Quadrivalent PF ] LEONA RIOS MD [facility] 08-27-2019 influenza, injectabl e, quadrivalent, preservative free; Translations: [Fluarix PF Quadrivalent ] BARBER CARLISLE [employer]EIGN AGENT-SUSPENDER CUTTER [facility] 09-13-2017 influenza virus vaccine, unspecified formulation MARIANA RAMOS MD [facility] 09-19-2014 influenza virus vaccine, unspecified formulation MARIANA RAMOS MD [facility] Payers Date Payer Category Payer Self-pay [id number] 2022 Private Health Insurance [id number] 2022 Unknown [id number] 2022 Unknown [id number] 2022 Medicare [id number] [id number] .3.457230.[facility] 2022 Medicare [id number] 1950 Unknown [id number] 2.16.840.1.670431.3.579.2.6 1949 Unknown [id number] 2.16.840.1.337903.3.579.2.6 1949 Unknown [id number] 2.16.840.1.598358.3.579.2.6 1949 Unknown [id number] 2.16.840.1.415265.3.579.2.6 27 1949 Unknown [id number] 2.16.840.1.475636.3.579.2.6 27 1949 Unknown [id number] 2.16.840.1.695360.3.579.2.6 27 1949 Unknown [id number] 2.16.840.1.339066.3.579.2.6 27 1949 Unknown [id number] 2.16.840.1.526871.3.579.2.1 244 1949 Unknown [id number] 2.16.840.1.177136.3.579.2.1 245 1949 Unknown [id number] 2.16.840.1.401448.3.579.2.1 245 1949 Unknown [id number] 2.16.840.1.791766.3.579.2.1 245 1949 Unknown [id number] 2.16.840.1.841829.3.579.2.1 245 1949 Unknown [id number] 2.16.840.1.682480.3.579.2.1 245 1949 Unknown [id number] 2.16.840.1.495755.3.579.2.1 245 1949 Unknown [id number] 2.16.840.1.082371.3.579.2.1 245 Private Health [facility] [id number] Unknown Unknown [id number] Unknown [id number] 2.16.840.1.417763.3.579.2.4 62 Unknown [id number] 2.16.840.1.764905.3.579.2.4 62 Unknown [id number] 2.16.840.1.473686.3.579.2.4 62 Unknown [id number] 2.16.840.1.382141.3.579.2.4 62 Unknown [id number] 2.16.840.1.146814.3.579.2.4 62 Unknown [id number] 2.16.840.1.012918.3.579.2.4 62 Unknown [id number] 2.16.840.1.491802.3.579.2.4 62 Unknown [id number] 2.16.840.1.463862.3.579.2.4 62 Social History Date Type Detail Facility Start: 03-10-2020 End: 09-25-2023 Ex-smoker (finding) [facility] Start: 1950 Sex Assigned At Female A [facility] Start: 11-24-2021 End: 09-14-2023 Tobacco smoking status NHIS Unknown if ever smoked [facility] History of tobacco use Current smoker [facility] Work Phone: History of tobacco use Cigarette Smoker U [facility] Work Phone: Start: 09-25-2023 Tobacco use and exposure Smoke less tobacco non-user [facility] Work Phone: Start: 09-28-2023 End: 10-20-2023 Alcohol intake Ex-drinker (finding) [facility] Work Phone: Start: 09-25-2023 End: 10-31-2023 History of Social function [facility] Work Phone: Start: 09-25-2023 End: 10-31-2023 Alcohol Use Disorder Identification Test - Consumption [AUDIT-C] [facility] Work Phone: How often to you hav e a drink containing alcohol? Never [facility] Work Phone: How many standard dr inks containing alcohol do you have on a typical day? [facility] Work Phone: Start: 09-25-2023 Tobacco Comment Patient quit y ears ago [facility] Work Phone: Start: 1950 [facility] Start: 09-06-2023 End: 10-31-2023 Exposure to SARS-CoV-2 (event) Not sure [facility] NEGATED: Highlighted row - - [...] Status Patient Identi fied Identification band, Verbal [facility] 08-15-2023 Functional Status Maintained [facility] 02-25-2023 Functional status Ambulates;Chair [facility] Work Phone: 07-27-2022 Functional Status Room check performed [facility] 07-26-2022 Functional Status Yes [facility] 07-26-2022 Functional Status Min A 1 [facility] 07-26-2022 Functional Status None [facility] 07-26-2022 Functional Status [facility] 07-26-2022 Functional Status [facility] 07-25-2022 Functional Status Ambulation in Room [facility] 07-25-2022 Functional Status Vaish[facility] Ho [...] D evice Unable to use call device [facility] 07-16-2022 Functional Status [facility] 07-16-2022 Functional Status [facility] 07-15-2022 Functional Status [facility] 07-15-2022 Functional Status [facility] 07-13-2022 Functional Status Patient Identi fied Identification band [facility] 07-13-2022 Functional Status Sensory Deficits None A [facility] 07-11-2022 Functional Status Standard Safet y ID band on, Call device within reach, Bed in low position, Wheels locked, Upper/Half-Length side-rails up, Phone within reach, personal items within reach [facility] NEGATED: Highlighted row Functional performance Functional status health issues are not documented [facility] Work Phone: Mental Status Date Assessment Result Facility 08-15-2023 Mental Status Orientation [facility] 4 [facility] 08-09-2023 Cognitive function Level Of Cons ciousness Awake;Alert;Appropriate ;Follows Commands [facility] Work Phone: 02-25-2023 Cognitive function Voice/Name [facility] Work Phone: 07-27-2022 Mental Status Oriented x 4, Follows simple commands [facility] 07-26-2022 Mental Status [facility] 07-26-2022 Mental Status [facility] 07-26-2022 Mental Status [facility] 07-11-2022 Mental Status Orientation [facility] x 4 [facility] NEGATED: Highlighted row Cognitive function [Interpretation] Cognitive status health issues are not documented Disease [facility] Work Phone: Clinical Notes 09-15-2021 to 10-31-2023 Elida Villareal APRN-SILVINO - 10/31/2023 11:40 AM ESTPatient Wendy Sotelo MD - 10/17/2023 11:40 AM Marbella Blood RN - 09/28/2023 11:30 AM EST Note Date & Type Note Facility 10-31-2023 History of Present illness Narrative Subjective Chief Complaint: 72yo patient here for cardiovascular risk stratification prior to noncardiac surgery. HPI Presented as a transfer from [facility] with left lower [...] Chronic Venous Insufficiency, RLE DVT, OA, GERD, ?NC, LUISA, HFrEF PSHx: Lumpectomy, Cholecystectomy, Appendectomy Presents from [facility] with nursing aid. Denies chest [...] IV Risk w/15% 30-day risk of , NC, or cardiac arrest. Order for BNP. documented in this encounter [facility] Work Phone: 10-31-2023 Instructions FREDY [...] Continue all other medications as ordered. Call [phone] to schedule follow up with Dr. Rowell ([place]). documented in this encounter [facility] Work Phone: 10-17-2023 History of [...] 2 times a day. 09/27/23 Nancy Treviño APRN-SUSPENDER CUTTER bisacodyl (Dulcolax) 10 mg suppository Insert 1 [...] once daily. For 7 days ending 09/20/23. ([facility] Jie Probiotic 15 BILLION per [facility] list) 09/27/23 Nancy Treviño APRN-SUSPENDER CUTTER magnesium hydroxide (Milk of Magnesia) 400 mg/5 mL suspension Take 30 mL by mouth once daily as needed for constipation. Historical Provider, metoprolol succinate XL (Toprol-XL) 100 mg 24 hr tablet Take 1 tablet (100 mg) by mouth once daily. Do not crush or chew. Do not start before September 28, 2023. 09/28/23 Nancy Treviño APRN-SUSPENDER CUTTER ondansetron (Zofran) 4 mg tablet Take 1 [...] 2 times a day. 09/27/23 Nancy Treviño APRN-SUSPENDER CUTTER sennosides-docusate sodium (Zarina-Colace) 8.6-50 mg tablet Take [...] Pre Op optimization. COMPARISON: None. ACCESSION NUMBER(S): [id number] ORDERING CLINICIAN: KANG JULIAN TECHNIQUE: Using multi-detector [...] Yair Pham 09/28/2023 11:26 AM Dictation workstation: [id number] Electrocardiogram, 12-lead PRN ACS symptoms Result Date: [...] colovesical colovaginal fistula. COMPARISON: None ACCESSION NUMBER(S): [id number] ORDERING CLINICIAN: KANG JULIAN TECHNIQUE: Multiplanar MRI [...] Cristina MD. This study was interpreted at [facility], [place], [place]. MACRO: None Signed by: Clint Woods 09/25/2023 3:47 PM Dictation workstation: [id number] Transthoracic Echo (TTE) Complete Result Date: 09/20/2023 [facility], [address] [place] [address] and TRANSTHORACIC ECHOCARDIOGRAM REPORT Patient Name: POLI VALERIY Reading Physician: [id number] Kandi Roberts MD Study Date: 09/20/2023 Ordering Provider: [id number] VARSHA SOTELO MRN/PID: [id number] Fellow: Nurse: Mare Higgins Date of /Age: 11 1950 Flow Nurse: Muna Clinton RDCS years Gender: F Additional Staff: Height: 165.10 cm Admit Date: 09/15/2023 Weight: 74.84 kg Admission Status: Inpatient - Routine BSA: 1.82 m2 Department Location: [place] [facility] Non Invasive Blood Pressure: 126 /75 mmHg Study Type: TRANSTHORACIC ECHO (TTE) COMPLETE Diagnosis/ICD: Encounter for preprocedural cardiovascular examination-Z01.810 CPT Code: Echo Complete w Full Doppler-[id number] Patient History: Pertinent History: Breast cancer, HTN, [...] LA Area A2C: 21.1 cm2 LA Major Ferdinand A4C: 5.5 cm LA Major Ferdinand A2C: 5.6 cm AORTA MEASUREMENTS: Normal Ranges: [...] 1.0 m/s (0.6-0.9m/s) PV Max P.0 mmHg [id number] Kandi Roberts MD Electronically signed on 09/20/2023 at 4:04:20 PM Final US abdomen limited liver Result Date: 09/20/2023 Interpreted By: Steven Chacon and Ebai Jerky STUDY: US ABDOMEN LIMITED LIVER; [facility] US ABDOMINAL/PELVIC DUPLEX COMPLETE; 09/19/2023 6:30 pm INDICATION: 72 y/o F with Signs/Symptoms:Throbocytopenia workup; Signs/Symptoms:per doctor request. COMPARISON: None. ACCESSION NUMBER(S): [id number]; [id number] ORDERING CLINICIAN: KANG JULIAN TECHNIQUE: Multiple images of the right upper quadrant were obtained. Gates scale, color Doppler and spectral Doppler waveform analysis was performed. This examination was interpreted at [facility] [place]. FINDINGS: The liver measures 22.6 cm and [...] as stated. This study was interpreted at [place], [place]. MACRO: None Signed by: Steven Chacon 09/20/2023 5:44 AM Dictation workstation: [id number] Vascular US abdomen/pelvis duplex complete Result Date: 09/20/2023 Interpreted By: Steven Chacon, and Kim Sheikh STUDY: [facility]BD[facility] ABDOMINAL/PELVIC DUPLEX COMPLETE; 09/19/2023 6:30 pm INDICATION: 72 y/o F with Signs/Symptoms:Throbocytopenia workup; Signs/Symptoms:per doctor request. COMPARISON: None. ACCESSION NUMBER(S): [id number]; [id number] ORDERING CLINICIAN: KANG JULIAN TECHNIQUE: Multiple images of the right upper quadrant were obtained. Gates scale, color Doppler and spectral Doppler waveform analysis was performed. This examination was interpreted at [facility] [place]. FINDINGS: The liver measures 22.6 cm and [...] as stated. This study was interpreted at [place], [place]. MACRO: None Signed by: Steven Chacon 09/20/2023 5:44 AM Dictation workstation: [id number] CT head wo IV contrast Result Date: 09/19/2023 Interpreted By: Susy Canales, STUDY: CT HEAD WO IV CONTRAST; 09/19/2023 3:43 pm INDICATION: Signs/Symptoms:R/o subdural hematoma, thrombocytopenia workup (fall several weeks ago). COMPARISON: None. ACCESSION NUMBER(S): [id number] ORDERING CLINICIAN: KANG JULIAN TECHNIQUE: Axial CT [...] Susy Canales 09/19/2023 4:06 PM Dictation workstation: [id number] XR chest 1 view Result Date: 09/19/2023 Interpreted By: Delfin Menezes and [place] Lesley STUDY: XR CHEST 1 VIEW; 09/19/2023 8:46 am INDICATION: Signs/Symptoms:copd on oxygen. COMPARISON: Outside hospital CT chest 03/20/2014 ACCESSION NUMBER(S): [id number] ORDERING CLINICIAN: RIMA APPLE FINDINGS: Single AP [...] as stated. This study was interpreted at [facility], [place], [place]. MACRO: None Signed by: Delfin Menezes 09/19/2023 9:36 AM Dictation workstation: [id number] Labs: Lab Results Component Value Date BILIDIR [...] this encounter 10/23/2023 documented in this encounter [facility] Work Phone: 09-28-2023 Nurse Note Discharge paper work sent with patient, along with belongings documented in this encounter [facility] Work Phone: 09-28-2023 History of Present illness Narrative Poli Ramirez is a 72 y.o. female on day 13 of admission presenting with Colovaginal fistula. SW briefly met with pt about discharge needs. Pt lives at the [facility] in [place], [place]. Pt can discharge in the next few days. Facility notified through [facility]. SW will follow and assist as needed. SYDNEY Seth. 09/23/2023 LILY spoke to Caroline ([phone]) at the [facility] about pt's return. The facility does not [...] Seth. 09/26/2023 LILY spoke to Caroline from [facility] about pt's care. Pt has a cardiac scan today. ADOD is tomorr or Tuesday. Updated notes sent to pt's facility. SYDNEY Seth. 09/27/2023 Pt set for discharge today. Neg covid test (taken this morning) sent to [facility]. Transport requested for 1530. SW will let [...] about discharge needs. Pt lives at the [facility] in [place], [place]. Pt can discharge in the next few days. Facility notified through [facility]. SW will follow and assist as needed. SYDNEY Seth. 09/23/2023 LILY spoke to Caroline ([phone]) at the [facility] about pt's return. The facility does not [...] Seth. 09/26/2023 LILY spoke to Caroline from [facility] about pt's care. Pt has a cardiac scan today. ADOD is tomorrow or Tuesday. Updated notes sent to pt's facility. SYDNEY Seth. 09/27/2023 Pt set for discharge today. Neg covid test (taken this morning) sent to [facility]. Transport requested for 1530. SW will let [...] be rescheduled for this morning. SYDNEY Seth. [facility] HEART FAILURE PROGRESS NOTE Poli Ramirez/[id number] Admit Date: 09/15/2023 Hospital Length of Stay: [...] daily as needed for constipation. [DISCONTINUED] HYDROcodone-acetaminophen ([place]) 5-325 mg tablet Take 1 tablet by mouth every 6 hours if needed (moderate to severe pain). [DISCONTINUED] L. acidophilus-L. rhamnosus (Probiotic) 15 billion cell capsule Take 1 capsule by mouth once daily. For 7 days ending 09/20/23. ([facility] Ultimate Jie Probiotic 15 BILLION [...] about discharge needs. Pt lives at the [facility] in [place], [place]. Pt can discharge in the next few days. Facility notified through [facility]. SW will follow and assist as needed. SYDNEY Seth. 09/23/2023 LILY spoke to Caroline ([phone]) at the [facility] about pt's return. The facility does not [...] Seth. 09/26/2023 LILY spoke to Caroline from [facility] about pt's care. Pt has a cardiac scan today. ADOD is tomorrow or Tuesday. Updated notes sent to pt's facility. SYDNEY Seth. 09/27/2023 Pt set for discharge today. Neg covid test (taken this morning) sent to [facility]. Transport requested for 1530. SW will let the facility know when transport is confirmed. SYDNEY Seth. 09/27/2023 Transport set for 1730 with [facility]. Care team and facility notified. SYDNEY Seth. Poli Ramirez is a 72 y.o. female on day 12 of admission presenting with Colovaginal fistula. SW briefly met with pt about discharge needs. Pt lives at the [facility] in [place], [place]. Pt can discharge in the next few days. Facility notified through [facility]. SW will follow and assist as needed. SYDNEY Seth. 09/23/2023 LILY spoke to Caroline ([phone]) at the [facility] about pt's return. The facility does not [...] Seth. 09/26/2023 LILY spoke to Caroline from [facility] about pt's care. Pt has a cardiac scan today. ADOD is tomorrow or Tuesday. Updated notes sent to pt's facility. SYDNEY Seth. 09/27/2023 Pt set for discharge today. Neg covid test (taken this morning) sent to [facility]. Transport requested for 1530. SW will let [...] of occurrence. Would advise not prolonging NTF terminal make up operator as can cause pulmonary toxicity but address team driver of UTI (fistula). Additionally, would recommend [...] if further questions. ID team A pager [phone]. For new consults, contact pager [phone]. Patient staffed with ID attendant Dr Agarwal [...] of Assistance 1: Minimum assistance Outcome Measures: [facility] Basic Mobility Turning from your back to [...] RW (Progressing) Start: 09/22/23 Expected End: 10/06/23 [facility] HEART FAILURE PROGRESS NOTE Poli Ramirez/[id number] Admit Date: 09/15/2023 Hospital Length of Stay: [...] than 70 and non-responsive or NPO HYDROcodone-acetaminophen ([place]) 5-325 mg tablet Take 1 tablet by [...] 15-20%. Similar findings on TTE report from [facility]. Currently she appears compensated. Unknown etiology currently. [...] about discharge needs. Pt lives at the [facility] in [place], [place]. Pt can discharge in the next few days. Facility notified through [facility]. SW will follow and assist as needed. SYDNEY Seth. 09/23/2023 LILY spoke to Caroline ([phone]) at the [facility] about pt's return. The facility does not [...] Seth. 09/26/2023 LILY spoke to Caroline from [facility] about pt's care. Pt has a cardiac scan today. ADOD is tomorrow or Tuesday. Updated notes sent to pt's facility. SYDNEY Seth. Poli Ramirez is a 72 y.o. female on day 11 of admission presenting with Colovaginal fistula. LILY briefly met with pt about discharge needs. Pt lives at the [facility] in [place], [place]. Pt can discharge in the next few days. Facility notified through [facility]. SW will follow and assist as needed. SYDNEY Seth. 09/23/2023 LILY spoke to Caroline ([phone]) at the [facility] about pt's return. The facility does not [...] appendectomy who presented as a transfer from [facility] due to left [...] DM2, who presented as a transfer from [facility] due to left [...] PO PPI : Maintain stephens for decompression; NUT AND BOLT ASSEMBLER ONC - likely no fistula to vagina [...] Dr. Subramanian. Rasheed Brandt MD Colorectal Surgery [facility] Pager [phone] Poli Ramirez is a 72 y.o. female [...] about discharge needs. Pt lives at the [facility] in [place], [place]. Pt can discharge in the next few days. Facility notified through [facility]. SW will follow and assist as needed. Susy Blunt [facility], COORDINATOR CARDIOPULMONARY SERVICES. 09/23/2023 LILY spoke to Caroline ([phone]) at the [facility] about pt's return. The facility does not accept weekend discharges so pt will discharge back to facility on 09/26/2023. Pt will also need a negative covid test, taken same day. Care team notified. SW will arrange transport for midday 09/26. SW will follow and assist. SYDNEY Seth. [facility] HEART FAILURE PROGRESS NOTE Poli Ramirez/[id number] Admit Date: 09/15/2023 Hospital Length of Stay: 7 Primary Service: Colorectal surgery INTERVAL EVENTS / PERTINENT ROS: Records reviewed from [facility]. Patient is being planned for surgery for [...] than 70 and non-responsive or NPO HYDROcodone-acetaminophen ([place]) 5-325 mg tablet Take 1 tablet by [...] Home Living: Home Living Type of Home: Traffic Workforce Representative Care facility Home Adaptive Equipment: Wheelchair-manual, Walker rolling or standard Home Layout: One level Bathroom Shower/Tub: Walk-in shower Bathroom Toilet: Handicapped height Prior Level of Function: Prior Function Per Pt/Caregiver Report Level of [place]: Needs assistance with ADLs, Needs assistance with [...] extension and ankle DF 4/5) Outcome Measures: [facility] Basic Mobility Turning from your back to [...] about discharge needs. Pt lives at the [facility] in [place], [place]. Pt can discharge in the next few days. Facility notified through [facility]. SW will follow and assist as needed. [...] intensity level of continued care (Return to [facility] with Low intensity therapy services) OT Recommended [...] around toilet Home Living Comments: Living in [facility] Prior Function: Level of [place]: Needs assistance with ADLs, Needs assistance with [...] LUE LUE: Within Functional Limits Outcome Measures: [facility] Daily Activity Putting on and taking off [...] appendectomy who presented as a transfer from [facility] due to left [...] pancytopenia who presented as a transfer from [facility] due to left [...] (09/23) : Monitor UOP and maintain stephens Product Trainer onc consulted for vaginal bleeding, appreciate recs Ucx: e.fecium, awaiting sensitivities Heme/ID: Daily labs. Continue rocephin/flagyl Ppy: Lovenox 40mg daily, SCDs Special: Okay for shower Dispo: Continue care on RNF. Patient seen by and plans discussed with staff, Dr. Sotelo. Kang Julian MD Colorectal Surgery [facility] Pager [phone] Images from the original note were not [...] appendectomy who presented as a transfer from [facility] due to left lower quadrant abdominal pain suspicious for colovesical/colovaginal fistula and diverticulitis on CT. Subjective Product Trainer Onc on board for vaginal bleeding, awaiting [...] pancytopenia who presented as a transfer from [facility] due to left [...] today : Monitor UOP and maintain stephens Product Trainer onc consulted for vaginal bleeding, appreciate recs MRI pelvis ordered Ucx Heme/ID: Daily labs. Continue rocephin/flagyl Ppy: Lovenox 40mg daily, SCDs Special: Okay for shower Dispo: Continue care on RNF. Patient seen by and plans discussed with staff, Dr. Sotelo. Jesus Newman, DO Colorectal Surgery [facility] Pager [phone] 09/20/23 [id number] Discharge Planning Living Arrangements Other (Comment) (alf) Support Systems Children Type of Residence alf/residential care Patient expects to be discharged to: Return to [facility] in [place], [place] Does the patient need discharge transport [...] for a colovesical/colovaginal fistuala. She resides at [facility] in [place], [place]. She would like to return there [...] appendectomy who presented as a transfer from [facility] due to left lower quadrant abdominal pain suspicious for colovesical/colovaginal fistula and diverticulitis on CT. Subjective Product Trainer Onc on board for vaginal bleeding, awaiting [...] pancytopenia who presented as a transfer from [facility] due to left [...] prealbumin : Monitor UOP and maintain stephens Product Trainer onc consulted for vaginal bleeding, appreciate recs MRI pelvis ordered Ucx today Heme/ID: Daily labs. Continue rocephin/flagyl Ppy: Lovenox 40mg daily, SCDs Special: Okay for shower Dispo: Continue care on RNF. Patient seen by and plans discussed with staff, Dr. Sotelo. Kang Julian MD Colorectal Surgery [facility] Service Pager [phone] Images from the original note were not [...] appendectomy who presented as a transfer from [facility] due to left [...] pancytopenia who presented as a transfer from [facility] due to left [...] Dr. Sotelo. Kang Julian MD Colorectal Surgery Hector Service Pager [phone] Images from the original note were not [...] appendectomy who presented as a transfer from [facility] due to left [...] pancytopenia who presented as a transfer from [facility] due to left [...] Dr. Sotelo. Fran Brenner MD Colorectal Surgery Hector Service Pager [phone] Images from the original note were not [...] appendectomy who presented as a transfer from [facility] due to left [...] pancytopenia who presented as a transfer from [facility] due to left lower quadrant abdominal pain suspicious for colovesical/colovaginal fistula and diverticulitis on CT. Physical exam and imaging (review radiology) is suspicious for fistula. Will work on medical optimization and acquiring outside hospital colonoscopy results for further work-up. Will engage Dr. Apple for optimization, [facility]. Plan: Neuro: Continue current pain regimen with [...] Dr. Sotelo. Michelle Hendrickson MD Colorectal Surgery [facility] Service Pager [phone] Pharmacy Medication History Review Poli Ramirez is a 72 y.o. female admitted for Colovaginal fistula. BRAND MARKETING INTERN Medication List has been updated as appears [facility]. 09/14/23, 21:31:04 ET. The list below reflects the updated BRAND MARKETING INTERN list. Please review each medication in order [...] than 70 and non-responsive or NPO HYDROcodone-acetaminophen ([place]) 5-325 mg tablet Take 1 tablet by [...] [tizanidine] Not Specified Unknown Derrick Arriola PharmD, [facility] Transitions of Care Pharmacist Medication reconciliation complete Please reach out via Smart Voicemail for questions, or if no response call Tutor Assignment or kinkon. [facility] documented in this encounter [facility] Work Phone: 09-27-2023 Hospital course [...] appendectomy who presented as a transfer from [facility] with left lower [...] HYDROcodone-acetaminophen 5-325 mg tablet; Commonly known as: [place]; Take 1 tablet by mouth every 6 [...] once daily. For 7 days ending 09/20/23. ([facility] [employer]otic 15 BILLION [...] appointments. FREDY Holcomb documented in this encounter [facility] Work Phone: 09-27-2023 Miscellaneous Notes Poli Ramirez is a 72 year old female with a past medical history significant for hypertension on Lasix and lisinopril, hyperlipidemia, COPD (on 2 L nasal cannula at home), type 2 diabetes (not on insulin at home), left breast cancer status post lumpectomy, pancytopenia, open cholecystectomy and appendectomy who presented as a transfer from [facility] with left lower [...] Lancaster MD MPH Gynecologic Oncology PGY7 Pager: [phone], Team Phone: [phone] Problem: Pain Goal: My pain/discomfort is manageable [...] NPO since 1200, plan for U/S around 8030-4258. PRN pain medication given per orders. Patient requesting lidocaine gel for vaginal area for pain at stephens site, notified. All needs met, WCTM. Please see media for colonoscopy note from 08/15/23 at [facility]. Patient transitioned to the colorectal surgery service. Acute care surgery will sign off at this time. Thank you for allowing us to take care of Ms. Ramirez and we wish the best for her. Appreciate colorectal surgery care. Og Luis MD PGY-1 General Surgery Acute Care Surgery [phone] Epic Chat Preferred Discussed terms of patient's [...] but that he is currently in a usp here in [place]. Also states that she has a daughter, Jocy Ramirez, who can make decisions for her. Does not have Jocy's number at this time, but states that she would be okay with surgical team calling her to let her know she is in the hospital at [facility]. Staci Degroot MD PGY-3 General Surgery documented in this encounter [facility] Work Phone: 09-23-2023 Consult note [...] had a colonoscopy several weeks ago at [facility] for " work-up of the abdominal [...] colonic-vaginal vs colonic vesicular fistula. Transferred to [facility] 09/16 for surgical eval. Underwent MRI 09/21 [...] than 70 and non-responsive or NPO HYDROcodone-acetaminophen ([place]) 5-325 mg tablet Take 1 tablet by [...] of occurrence. Would advise not prolonging NTF terminal make up operator as can cause pulmonary toxicity but address team driver of UTI (fistula). Additionally, would recommend [...] if further questions. ID team A pager [phone]. For new consults, contact pager [phone]. Patient staffed with ID attendant Dr Agarwal [...] s/p lumpectomy, pancytopenia. She originally presented to [facility] with LLQ abdominal pain over the last 4 months. At [facility] a CT scan revealed chronic inflammation with bladder wall thickening, large diverticula with stool in sigmoid colon, and a likely benign mass in the spleen (present since previous scan in 2013). The scan was not able to exclude colovesical or colovaginal fistula. Patient had a colonoscopy several weeks ago at [facility] for work-up of the abdominal pain which was significant for a reported "obstructing mass". Per patient she needed surgery at this time, however, she was not medically optimized, so her surgeon "refused" to perform the operation. She denies previous cardiac history, chest pain, or dyspnea. During pre operative evaluation at [facility], she had a routine TTE which is [...] than 70 and non-responsive or NPO HYDROcodone-acetaminophen ([place]) 5-325 mg tablet 1 tablet, oral, Every [...] was refused from a surgical intervention at [facility] which sounds like it may have been due to her heart disease. 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 Still being worked up by primary team, no surgery planned as of yet #Hypertension #Hyperlipidemia #COPD on 2L chronically Recommendations: Please obtain her records from [facility] for any echos, or cardiac consultations/testing. Start [...] and anemia who is a transferred from [facility] with left lower [...] noted at bedside, recommend pad counts (notify Product Trainer Onc team if >2pad/hr over 2hrs) Colovesical/Colovaginal [...] vaginal bleeding. Pelvic MRI without evidence of NUT AND BOLT ASSEMBLER cancer. She should have an endometrial biopsy. If she is having surgery this hospitalization will perform while hospitalized, otherwise would do as an outpatient. We will be available if needed for surgery. Eric Osorio MD Subjective 72 y.o with h/o left breast cancer, HTN, COPD (on 2L NC at home), T2DM, chronic thrombocytopenia and anemia who is a transferred from [facility] for left lower [...] than 70 and non-responsive or NPO HYDROcodone-acetaminophen ([place]) 5-325 mg tablet Take 1 tablet by [...] found for: "LACTATE" documented in this encounter [facility] Work Phone: 09-22-2023 History and [...] s/p lumpectomy, pancytopenia. She originally presented to [facility] with LLQ abdominal pain over the last 4 months. At [facility] a CT scan revealed chronic inflammation with bladder wall thickening, large diverticula with stool in sigmoid colon, and a likely benign mass in the spleen (present since previous scan in 2013). The scan was not able to exclude colovesical or colovaginal fistula. Patient had a colonoscopy several weeks ago at [facility] for work-up of the abdominal pain which was significant for a reported "obstructing mass". Per patient she needed surgery at this time, however, she was not medically optimized, so her surgeon "refused" to perform the operation. She denies previous cardiac history, chest pain, or dyspnea. During pre operative evaluation at [facility], she had a routine TTE which is [...] than 70 and non-responsive or NPO HYDROcodone-acetaminophen ([place]) 5-325 mg tablet 1 tablet, oral, Every [...] was refused from a surgical intervention at [facility] which sounds like it may have been due to her heart disease. 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 Still being worked up by primary team, no surgery planned as of yet #Hypertension #Hyperlipidemia #COPD on 2L chronically Recommendations: Please obtain her records from [facility] for any echos, or cardiac consultations/testing. Start [...] included. Colorectal Surgery Consult H&P Poli Ramirez [phone] Consults Reason for admission: We were consulted [...] appendectomy who presents as a transfer from [facility] due to left lower quadrant abdominal pain suspicious for colovesical/colovaginal fistula and diverticulitis on CT. Patient reports left lower quadrant abdominal pain for the last 4 months. Pain worsened 2 nights ago at which time she presented to [facility]. Patient also reports 4 weeks ago she began having vaginal bloody discharge and dark brown/red urine with dysuria. Patient denies any difficulty urinating however she endorses the vaginal discharge/urine has a foul odor to it. Patient had a colonoscopy several weeks ago at [facility] for work-up of the abdominal pain [...] 10 years that was reportedly normal. At [facility] a CT scan revealed chronic inflammation [...] pancytopenia who presents as a transfer from [facility] due to left lower quadrant abdominal pain suspicious for colovesical/colovaginal fistula and diverticulitis on CT. Physical exam and imaging (review radiology) is suspicious for fistula. Will work on medical optimization and acquiring outside hospital colonoscopy results for further work-up. Will engage Dr. Apple for optimization, [facility]. Neuro: Continue current pain regimen with IV [...] Deepak Brenner MD, MD Colorectal Surgery [facility] Service Pager [phone] [facility] ACUTE CARE SURGERY - HISTORY AND PHYSICAL / CONSULT Patient Name: Poli Ramirez Admit Date: [id number] : 1950 AGE: 72 y.o. GENDER: female TODAY'S ASSESSMENT AND PLAN OF CARE: NPO w/ IVF IV ceftriaxone and metronidazole Pain and nausea control as needed Interdisciplinary care with Colorectal Surgery for further workup including imaging and/or colonoscopy Gina Rush MD [facility] [phone] CHIEF COMPLAINT/REASON FOR CONSULT: Poli Ramirez is a 72 yo F, medical history significant for HTN, HLD, COPD (on 2L NC at home), T2DM, left breast cancer (ER positive, T1c, N0, cM0) s/p left lumpectomy, pancytopenia, and open cholecystectomy, appendectomy, who was transferred from [facility] for an intraabdominal abscess, diverticulitis, [...] a colonoscopy a few weeks ago at [facility] but was told they did not reach the ileocecal valve due to an obstructing mass and no biopsies were taken. She adds she was referred to a surgeon at [facility] but says "the doctor refused surgery because [...] chemoprophylaxis, full code. documented in this encounter [facility] Work Phone: 09-15-2023 Discharge summary Note Date/Time September 15, 2023 1:09am [facility] Medical Records Department [address] [place] [address] Emergency Department Summary 09/15/23 MR#: [id number] Acct: [id number] Name: POLI RAMIREZ Rep #:[id number] : 1950 72 From: Calvin Hester DO PCP: Dr. Jonathan Dillard Sr., DO Status:R EG ER Location: ED ADDENDUM by Dr. Jerad Thomas MD on 09/15/23 at 1326 Patient was turned over to me pending transfer. Physician at [facility] accepted. But there is no bed currently. [...] Patient is a 71-year-old female from the [facility] with past medical history of COPD on oxygen 06/06 as well as congestive heart failure hypertension and diabetes. She has been evaluated over the past 4 to 5 months for recurrent abdominal pain and found to have chronic colitis. There is concern this could be related to a potential malignancy. The patient is on [place] secondary to this. Reportedly she recently was diagnosed with UTI as well and has been placed on antibiotics. Patient is complaining of persistent abdominal pain as well as vaginal bleeding [facility] Medical History Acute on chronic respiratory failure [...] bisacodyl 10 mg rectal suppository 10 mg MO DAILY PRN constipation 11/11/22 [History Last Taken [...] surgery Hx of cholecystectomy Social History housing: usp Smoking Status: Former smoker alcohol intake: never [...] reported the pain has been controlled with [place] and now is no longer controlling her [...] was discussed with Dr. Landon/surgery from [facility]. She agrees to accept the patient in [...] 70.5 H Lymph % (Auto) 19.5 [place] % (Auto) 7.8 Eos % (Auto) 0.8 [...] Clarity Clear Urine pH 6.0 Ur Specific [place] 1.010 Urine Protein 30 H Urine Glucose [...] EDT , Management Discussion w/another healthcare provider: Supervisor Counseling And Guidance and Other Discharge Plan Triage Chief Complaint: Abd Pain ED Provider: Calvin Hetser Dx/Rx/DC Orders Clinical Impression: Type 2 diabetes mellitus, Abscess of intestine, COPD (chronic obstructive pulmonary disease), Chronic anemia Prescriptions: No Action bisacodyl 10 mg suppository 10 mg MO DAILY PRN (Reason: constipation) cranberry 400 mg [...] Disposition Disposition: Acute Care Hospital Discharge Location: [facility] What to do if you have Problems For any increased pain, shortness of breath, bleeding, nausea or vomiting, chestpain, or any unexpected problems, contact your Primary Care Provider. Call [facility] ([phone]) or report to the closest Emergency Room. Call 911 if necessary. 09/15/23 0535 <Electronically signed by Calvin Hester DO> Cosigner Signature (if applicable): CC: Dr. Jonathan Dillard Sr., DO ~ Signed [facility] Work Phone: 1(162) 883-442310-06-2023 Evaluation + Plan note Future Scheduled Tests Radiology* MRI Pancreas 08/19/23 [facility] 10-04-2023 Note ORIGINAL EXAMINATION: BARIUM ENEMA08/17/2023 [...] Sign Date: 08/17/2023 3:50:07 PM Ordering Provider: [facility]10-02-2023 Hospital Discharge instructions Patient Education 08/15/2023 [...] including vitamins, herbs, eye drops, creams, and fxfe-gzk-ctqqdcg medicines. Any blood disorders you have. Any [...] provider tells you to take them. ?Taking gcuy-flo-qfwtxtb medicines, vitamins, herbs, and supplements. Follow instructions [...] Document Reviewed: 03/06/2019 Elsevier Patient Education 2020 ividence. 08/15/2023 12:07:59 Barium Enema Barium Enema A [...] including vitamins, herbs, eye drops, creams, and nehd-blu-suuwaai medicines. Any blood disorders you have. Any [...] provider tells you to take them. ?Taking lktf-fqd-yumgtlm medicines, vitamins, herbs, and supplements. Follow instructions [...] 10/28/2001 Document Revised: 03/06/2019 Document Reviewed: 03/06/2019 [employer] Patient Education 2020 ividence. 08/15/2023 12:02:48 Monitored Anesthesia Care, Care After [...] before eating solid foods. General instructions Take zhdt-orv-fsuknib and prescription medicines only as told by [...] 02/20/2017 Document Revised: 01/29/2019 Document Reviewed: 02/20/2017 [employer] Patient Education 2020 [employer]idence. 08/15/2023 12:02:43 Colonoscopy, Adult, Care After Colonoscopy, [...] a slower pace than normal. ?Eat soft, xdkx-ms-copkij foods. Take mska-uyv-ssfoumc or prescription medicines only as told by [...] 06/14/2005 Document Revised: 08/23/2018 Document Reviewed: 01/11/2017 [employer] Patient Education 2020 ividence. Follow Up Care 08/09/2023 08:04:53 With:MARK JEREZ Address: [address] [place] [phone] Business (1) When: Unknown Comments:KEEP YOUR APPOINTMENT FOR YOUR MRI ON TUESDAY AT [address] JEREZ WOULD LIKE POLI TO HAVE A BARIUM EMEMA ON TUESDAY. THE ORDER IS IN THE FOLDER. PLEASE CALL DR. JEREZ'S OFFICE TO GET THE ORDERS FOR A PREP. PLEASE CALL THE NUMBER ON THE ORDER TO SCHEDULE THE BARIUM ENEMA [phone]. [facility] 10-02-2023 Evaluation + Plan noteExtracted from: Title:Clinical Document Author:MARK JEREZ Date:08/15/23 [facility] ADMISSION HISTORY AN D PHYSICIAL CHIEF COMPLAINT: HISTORY OF PRESENT ILLNESS: REVIEW OF SYSTEMS: ACTIVE PROBLEMS: (32) Anemia (139578132) Arthritis (5730227) Benign colon polyp (1203339513) Breast cancer (007733013) Cervical spine fracture (114823755) Chest pain (30550172) Chronic anemia (216345795) Chronic back pain (506886112) COPD (64542773) Dependence on wheelchair (516626224) Diabetes mellitus type 2 (371496509) Diabetic neuropathy (022683894) Diarrhea (148055644) Dysphagia (73403695) Edema of both lower extremities (432071823) Encounter for surgical aftercare following surgery of nervous system (486882466) General weakness (10828529) GERD (gastroesophageal reflux disease) ([id number]) Glasses (7572988444) Goiter (4748909) Hard of hearing (923296170) Heart attack (89335220) History of radiation exposure (799078224) Hx of thrombocytopenia (718888030) Hyperlipidemia (66228739) Hypertension, essential (42707865) Incontinence of urine (0704546936) Osteoarthritis (7702531533) Oxygen dependent (4610688657) Pancreatic cyst (62729548) Rheumatic fever (85310258) Urinary incontinence (0848376429) MEDICATIONS: Active Inpt Meds: None Active PRN Meds: None One Time Meds: None Active IV Meds: Lactated Ringers Infusion 1,000 mL (LR 1,000 mL) Start: 08/15/23 10:41:00 EDT, Rate: 50 mL/hr, 08/15/23 10:41:00 EDT ALLERGIES: (2) Flexeril Zanaflex FAMILY HISTORY: SOCIAL HISTORY: PHYSICAL EXAM: VITALS: QvevgzRsykFZMxyodITTjK9YHO8JvumNu(kg) 08/15 10:1936.7--352536XT90/02 95.0 08/15 95.0 24 Hr Tmax: 36.7 [...] LABS: 36hr Labs 08/15 1041 Blood Glucose, Tnxynetem103B Blood Glucose, Twrsfhqoz831E DIAGNOSTICS: IMPRESSION: PLAN: History and Physical Update I have examined the patient; reviewed the H&P and there are no changes to the H&P unless noted below. Future Appointments Appointment Date:08/17/2023 10:30:00 AM Scheduled Provider: Location:[facility] Appointment Type:XR Barium Enema Complete Appointment Date:08/19/2023 02:30:00 PM Scheduled Provider: Location:[facility] Appointment Type:MRI Pancreas Future Scheduled Tests Radiology* XR Barium Enema Complete 08/17/23 * MRI Pancreas 08/19/23 [facility] 10-02-2023 Summary of episode note Discharge Instructions Thank you for allowing [facility] to assist you with your healthcare needs. The following is importantdischarge information regarding your hospital visit. Your Care Team BARBER CARLISLE What to do next Scheduled Follow-Up Appointments Appointment Type When Where Contact InformationMRI Pancreas 08/19/2023 02:30 PM [facility] Radiology [phone] Follow Up Appointments Follow Up with MARK JEREZ When Why: KEEP YOUR APPOINTMENT FOR YOUR MRI ON TUESDAY AT [address] JEREZ WOULD LIKE POLI TO HAVE A BARIUM EMEMA ON TUESDAY. THE ORDER IS IN THE FOLDER. PLEASE CALL DR. JEREZ'S OFFICE TO GET THE ORDERS FOR A PREP. PLEASE CALL THE NUMBER ON THE ORDER TO SCHEDULE THE BARIUM ENEMA [phone]. Where: [address] [place] [address]- [phone] Business (1) The Following Activity and Diet [...] including vitamins, herbs, eye drops, creams, and tzzu-dtc-nuhdulc medicines. Any blood disorders you have. Any [...] tells you to take them. ? Taking pjkj-mvi-czrnttu medicines, vitamins, herbs, and supplements. Follow instructions [...] 10/28/2001 Document Revised: 03/06/2019 Document Reviewed: 03/06/2019 [employer] Patient Education 2020 ividence. Barium Enema A barium enema is a [...] including vitamins, herbs, eye drops, creams, and esjf-civ-mdabodn medicines. Any blood disorders you have. Any [...] tells you to take them. ? Taking dqjy-skf-gbevdvv medicines, vitamins, herbs, and supplements. Follow instructions [...] 10/28/2001 Document Revised: 03/06/2019 Document Reviewed: 03/06/2019 [employer] Patient Education 2020 ividence. Monitored Anesthesia Care, Care After These instructions [...] before eating solid foods. General instructions Take gdyd-cil-rbvsjtz and prescription medicines only as told by [...] 02/20/2017 Document Revised: 01/29/2019 Document Reviewed: 02/20/2017 [employer] Patient Education 2020 ividence. Colonoscopy, Adult, Care After This sheet gives [...] slower pace than normal. ? Eat soft, axcr-cd-ovgovn foods. Take fzxl-pke-iizbnqh or prescription medicines only as told by [...] 06/14/2005 Document Revised: 08/23/2018 Document Reviewed: 01/11/2017 [employer] Patient Education 2020 [employer] Additional Information VACCINATE! IT SAVES LIVES! Members of the community who have not yet received the COVID-19 vaccine and would like to receive it can visit one of [facility] vaccine clinics. There are many vaccine clinic locations within the [facility]. For locations and available times, please visit https://gettheshot.coronavirus.[place].gov/. It is important to note that some COVID mobile vaccine clinics are held outdoors and may be canceled in rainy or stormy conditions. To learn more about pediatric vaccinations (ages 5-11), we invite you to visit the [facility] webpage. https://www.[email or web address].org/pages/2263-Qbyod-Amsaaexqyqu-Qsxnrubtxj-Ppgnn-Vrp stions.htmlTo learn more about the COVID-19 vaccine, we invite you to visit the CDC website for a list of frequently asked questions.https://www.cdc.gov/coronavirus/2019-ncov/vaccines/faq.html [facility] Patient Portal Access Instructions: Stay connected with your healthcare team and access your personal medical information anytime with the [facility] Patient Portal. Please follow the directions below to create your [employer] account: 1.Access the email account you provided upon registration to the hospital/physician office.2.Look for an invitation email from [facility].3.Open the email and access the invitation link: AcceptInvitation to [facility].4.Fill in the required quijano to create your account. To access your account, visit [facility]. Click the blue button labeled "Access Patient Portal" and then log in with the username and password that you created in the steps above. You will be able to view your test results, lab results, a summary of your visits, upcoming appointments and more. There is also a convenient messaging option where you can send secure messages to your [employer]. In addition, you will have the ability to download any documents or summaries to your computer and/or send the information securely to a physician. Remember that your healthcare information is confidential, so carefully consider who you will allowto register on the [facility] Patient Portal for access to your information. You can also access the [employer] Patient Portal on the [facility] marcy. Simply click on "Patient Portal" and then log into your account. If you would like to receive a full copy of your medical records, please contact the [facility] Medical Records Department by calling [phone], Tuesday through Tuesday between 8 a.m. and [...] Call your local pharmacy or go to http://[email or web address]/5E3Ld3u to find one close to you.3.Make use of household items: Use cat litter or old coffee grounds to dispose medications if other options arenot available. Mix your drugs with these household products, seal them in an airtight container andthrow it into the garbage. Call [facility]: [phone] to be sure your drugs can be [...] that I should contact my d octor. Patient/Transplant Rn Signature: Date/Time: Relationship to Patient: Witness Name/Signature: Date/Time: [facility]10-02-2023 Nurse Progress note Attempted colonoscopy. Dr. Jerez ordered a Barium Enema. Canvassing Manager X-Rays taken. Radiologist stated tomuch air for a Barium Enema today. Dr. Jerez notified. Orders received. Digitally Signed by Amy Watters RN on 08/15/2023 11:54 AM [facility]10-02-2023 Note ORIGINAL HISTORY: Failed colonoscopy, stricture [...] Sign Date: 08/15/2023 12:08:09 PM [facility] Anesthesiology Consult note Patient: POLI RAMIREZ Age: 72 years Sex: Female : 1950 Associated Diagnoses: None Author: DELFIN RAM APRN-SWITCHBOARD TROUBLESHOOTER Assessment Postanesthesia assessment Vitals: Vital signs from [...] by DELFIN RAM on 08/15/2023 11:22 AM [facility]10-02-2023 Anesthesiology Consult note Patient: POLI RAMIREZ [...] list: Medical Chronic anemia / SNOMED CT 172071530 / Confirmed Chronic back pain / SNOMED CT 763912478 / Confirmed COPD / SNOMED CT 02162987 / Confirmed Hypertension, essential / SNOMED CT 69963370 / Confirmed Cervical spine fracture / SNOMED CT 556296827 / Confirmed GERD (gastroesophageal reflux disease) / SNOMED CT [id number] / Confirmed Goiter / SNOMED CT 3156886 / Confirmed Hyperlipidemia / SNOMED CT 52161464 / Confirmed Encounter for surgical aftercare following surgery of nervous system / SNOMED CT 182293229 / Confirmed Incontinence of urine / SNOMED CT 8903143199 / Confirmed, Active Problems (32) Anemia Arthritis [...] incontinence Histories Past Medical History: Active COPD (99038170) Chronic back pain (710924257) Resolved H/O hypercholesterolemia (7857986494): Resolved. Hypernatremia (8627445111): Resolved. Family History: Heart disease Father Brother Arthritis Daughter Stroke Mother Cancer Sister HTN - Hypertension Mother GERD (gastroesophageal reflux disease) Daughter Diverticulitis Daughter Procedure history: Cervical discectomy (444712131) on 07/13/2022 at 71 Years. Comments: 08/09/2022 11:44 Viji Diaz MEDICAL SERVICES ASSISTANT ACDF None (122892801). Appendectomy (463322261). Comments: 08/11/2017 12:13 SHAMA BOLTON left water taken off Tubal ligation (860347010). Cholecystectomy (58323855). Arthroscopic knee operation (0470628482). Comments: 12/24/2019 13:16 SHAMA Gabriel right Lumpectomy of breast (4660011487). Comments: 12/24/2019 13:16 SHAMA Gabriel left Phacoemulsification of cataract with intraocular lens implantation (5062194570). Comments: 12/24/2019 13:16 SHAMA Gabriel both eyes Colonoscopy (222133348). Esophagogastroduodenoscopy (630423487). Cardiac catheter (7319376552). Comments: 12/24/2019 13:17 SHAMA Gabriel years ago [...] Signs(last 24 hrs) Last Charted Heart Rate Aghuhcsmu09 bpm (AUG 15 11:15) Resp Rate H 21br/min (AUG 15 10:19) BVY143 mmHg (AUG 15 11:11) WTR913 mmHg (AUG 15 11:11) BMI34.89 (OCT 02 10:29) Measurements from flowsheet : Measurements 08/15/2023 10:29 EDT Height 165 cm Admission Weight 95 kg [place] Body Weight 56.91 kg BSA Admission 2.02 Body Mass Index 34.89 kg/m2 08/15/2023 10:19 EDT Height 165 cm Admission Weight 95 kg [place] Body Weight 56.91 kg Admission Body Mass [...] mg mg 08/15/2023 11:12 EDT SN - NC - Medication glucagon recombinant 1 mg SN - NC - Route of Administration Intravenous SN - NC - By (Single) SN - NC - By (Single) SN - NC - Time Administered 08/15/2023 11:11 08/15/2023 11:11 [...] propofol 50 mg mg 08/15/2023 11:01 EDT [place] History and Physical 08/15/2023 11:00 EDT SN [...] Surgeon SN - CAt - Role Performed Equipment Or Machinery Cleaner 1 SN - CAt - Role Performed Service Supervisor SN - CAt - Role Performed SWITCHBOARD TROUBLESHOOTER 08/15/2023 11:00 EDT Heart Rate Monitored 96 [...] Person #2 We May Share AALIYAH Oakley [phone] Designated Person #2 Relationship Daughter Height 165 cm Admission Weight 95 kg [place] Body Weight 56.91 kg BSA Admission 2.02 [...] Method Explanation, Printed materials Preferred Spoken Language Citizen Of [place] Preferred Written Language Citizen [place] Information Given by Patient Patient's Current Physicians Patient's Current Physicians Discharge To, Anticipated Home with family care Prev Test Positive/Diagnosis w/COVID-19 No Current Quarantine/Isolated any Illness No Any Contact with Sick Animals/Birds No Traveled Anywhere in Last 30 Days No N/A Personal Devices, Patient Valuables None Admission Note-Nursing Procedure/Therapy Intake 08/15/2023 10:19 EDT Height 165 cm Admission Weight 95 kg [place] Body Weight 56.91 kg Admission Body Mass [...] Quadrants Present Skin Temperature Warm Skin Description [place], Dry Skin Integrity Intact Mucous Membrane Color [place] Characteristics of Speech Clear Level of Consciousness [...] Allergies Yes Anesthesia Extension Set Applied Yes Global Risk Management Director On Yes Colon Prep Results Excellent Consent [...] Void 08/15/2023 9:00 . Assessment and Plan [place] [employer] of Anesthesiologists (ASA) physical status classification: Class IV. Anesthetic Preoperative Plan Anesthetic technique: MAC. Informed consent: signed by patient. Digitally Signed by DELFIN RAM on 08/15/2023 11:21 AM [facility]10-02-2023 Anesthesiology Consult note Patient: POLI RAMIREZ [...] by DELFIN RAM on 08/15/2023 11:19 AM [facility]10-02-2023 Note [place] ADMISSION HISTORY AND PHYSICIAL CHIEF COMPLAINT: HISTORY OF PRESENT ILLNESS: REVIEW OF SYSTEMS: ACTIVE PROBLEMS: (32) Anemia (723342143) Arthritis (9398540) Benign colon polyp (5021568201) Breast cancer (089120227) Cervical spine fracture (530562874) Chest pain (99268094) Chronic anemia (717923750) Chronic back pain (815360057) COPD (00039278) Dependence on wheelchair (730735063) Diabetes mellitus type 2 (327608125) Diabetic neuropathy (449876042) Diarrhea (081231983) Dysphagia (66332503) Edema of both lower extremities (259819454) Encounter for surgical aftercare following surgery of nervous system (069656385) General weakness (07780405) GERD (gastroesophageal reflux disease) ([id number]) Glasses (6813604883) Goiter (0132099) Hard of hearing (708701846) Heart attack (57710480) History of radiation exposure (638153436) Hx of thrombocytopenia (122722940) Hyperlipidemia (93948417) Hypertension, essential (41676225) Incontinence of urine (0156087872) Osteoarthritis (7941247889) Oxygen dependent (2893198226) Pancreatic cyst (84937239) Rheumatic fever (79203549) Urinary incontinence (8232409569) MEDICATIONS: Active Inpt Meds: None Active PRN Meds: None One Time Meds: None Active IV Meds: Lactated Ringers Infusion 1,000 mL (LR 1,000 mL) Start: 08/15/23 10:41:00 EDT, Rate: 50 mL/hr, 08/15/23 10:41:00 EDT ALLERGIES: (2) Flexeril Zanaflex FAMILY HISTORY: SOCIAL HISTORY: PHYSICAL EXAM: VITALS: BovqioGyudJNQzpqrYAToF2IRH5VjqjLg(kg) 08/15 10:1936.7--420706MP62/02 95.0 08/15 95.0 24 Hr Tmax: 36.7 [...] LABS: 36hr Labs 08/15 1041 Blood Glucose, Anfzithcl906S Blood Glucose, Rddtabtli371Q DIAGNOSTICS: IMPRESSION: PLAN: History and Physical Update I have examined the patient; reviewed the H&P and there are no changes to the H&P unless noted below. Digitally Signed by MARK JEREZ MD on 08/15/2023 11:05 AM [facility]08-31-2023 Discharge summary Author Shahnaz [facility] July 14, 2023 7:47pm Note Date/Time July 14, 2023 3: 43pm [facility] Medical Records Department [address] [place] [address] Emergency Department Summary 07/14/23 MR#: [id number] Acct: [id number] Name: POLI RAMIREZ Rep #:[id number] : 1950 72 From: Shahnaz Georges PCP: [...] DNR CCA. She is a resident of [facility]. She notes that she is mostly wheelchair-bound but can walk short distances. Had a neck fracture earlier thisyear. [facility] Medical History Acute on [...] bisacodyl 10 mg rectal suppository 10 mg MO DAILY PRN 11/11/22 [History Last Taken Unknown] [...] surgery Hx of cholecystectomy Social History housing: [facility] Smoking Status: Former smoker alcohol intake: never [...] Patient isalso prescribed a short course of [place] for pain control. Is given first dose [...] H Lymph % (Auto) 14.7 L [place] % (Auto) 6.5 Eos % (Auto) 1.3 [...] Clarity Clear Urine pH 6.0 Ur Specific [place] 1.020 Urine Protein 15 H Urine Glucose [...] Action bisacodyl 10 mg suppository 10 mg MO DAILY PRN cranberry 400 mg capsule 400 [...] your Primary Care Provider. Call [facility] ([phone]) or report to the closest Emergency Room. Call 911 if necessary. 07/14/231946 <Electronically signed by Shahnaz Way DO> Cosigner Signature (if applicable): CC: Jonathan Dillard MD ~ Signed [facility] Work Phone: 1(854) 227-131106-06-[address] Vela [facility] April 19, 2023 7:53pm Note Date/Time April 19, 2023 6:13p m [facility] Medical Records Department [address] [place] [address] Emergency Department Summary 04/19/23 MR#: [id number] Acct: [id number] Name: POLI RAMIREZ Rep #:[id number] : 1950 72 From: Alejandra Vela DO PCP: Gilma STUBBS, Jonathan Status:REG ER Location: ED HPI HPI - GI History of Present Illness Chief Complaint: Abd Pain Narrative Narrative: 72-year-old female presenting with left lower quadrant abdominal pain. She states this has been present off and on for weeks. She states that [facility] she gets T[facility]ol for this and it goes away but over the last few days the Tylenol is not helping. She has nausea without vomiting. She denies constipation. She states she has loose stools its not quite diarrhea. No blackor bloody stools. She states that at times there is right-sided abdominal pain. She has not had a fever at home. [facility] Medical History Acute on [...] bisacodyl 10 mg rectal suppository 10 mg MO DAILY PRN 11/11/22 [History Last Taken Unknown] [...] surgery Hx of cholecystectomy Social History housing: [facility] Smoking Status: Former smoker alcohol intake: never [...] discussed with the on-call physician for the [facility]. They wish to have the patient started [...] H Lymph % (Auto) 11.2 L [place] % (Auto) 5.5 Eos % (Auto) 0.9 [...] Clarity Clear Urine pH 6.5 Ur Specific [place] 1.010 Urine Protein Negative Urine Glucose (UA) [...] Paper guidelines (Bailey, et al. JACR 2017; 14(8):0629-3929) recommend a low dose, non-contrast adrenal CT [...] Action bisacodyl 10 mg suppository 10 mg MO DAILY PRN cranberry 400 mg capsule 400 [...] your Primary Care Provider. Call [facility] ([phone]) or report to the closest Emergency Room. Call 911 if necessary. 04/19/231952 <Electronically signed by Alejandra Vela DO> Cosigner Signature (if applicable): CC: Jonathan Dillard MD ~ Signed [facility] Work Phone: [phone]) 967-970904-14-[address] Jaime [facility] February 25, 2023 11:39am Note Date/Time February 25, 2023 11: 37am [facility] Medical Records Department [address] [place] [address] Transfer to [facility] Care MR#: [id number] Acct: [id number] Name: POLI RAMIREZ Rep #:[id number] : 1950 72 From: Pratima Jaime MD PCP: ARLENE Edmonds Status:ADM I N Certification of patient admission REQUIRED AT TIME OF ADMISSION. I CERTIFY THAT POST-HOSPITAL ECF SERVICES ARE REQUIRED TO BE GIVEN ON AN IN-PATIENT BASIS BECAUSE OF THE ABOVE NAMED PATIENT'S NEED FOR RETIREMENT CARE ON A CONTINUING BASIS FOR THE CONDITION(S) FOR WHICH HE/SHE WAS RECEIVING IN-PATIENT HOSPITAL SERVICES PRIOR TO HIS/HER TRANSFER TO THE [facility]. 02/25/23 1139<Electronically signed by Pratima Jaime MD> [...] displaced fracture of cervical vertebra resulting in [facility] placement, VTE presented to [facility] 02/18/23 due to unresponsiveness. She was found unresponsive by the [facility] where she lived. She was found to [...] to schedule your hospital follow-up appointment (ph [phone]) -Weigh yourself every day. A sudden weight [...] Monique ; Krzysztof Pennington ; Viji Richey [employer] ; Rebecca Resendiz ; Thomas Ahumada ; [...] Continued bisacodyl 10 mg suppository 10 mg MO DAILY PRN cranberry 400 mg capsule 400 [...] hospital follow-up appointment )) Barber Carlisle NP, [employer]-C [Primary Care Provider] - Within 1 Week Disposition Disposition (needs filled in before D/C Order can be placed): [facility] 02/25/23 1137 <Electronically signed by Pratima Jaime MD> Cosigner Signature (if applicable): CC: [employer]-C Viji Richey; [employer]-C Barber Carlisle; Dr. Serge Banks MD; Dr. Hernando Padron MD; Dr. Ajit Mcgill DO; Dr. Thomas Ahumada MD; Dr. Rebecca Resendiz DO; Dr. Martín Monique MD; Dr. Krzysztof Pennington MD ~ [facility] Work Phone: [phone]) 426-273804-13-[address] Jaime [facility] February 24, 2023 3:21pm Note Date/Time February 24, 2023 3:2 1pm [facility] Medical Records Department [address] [place] [address] [place] [address] Progress Note - Hospitalist 02/24/23 5054 MR#: [id number] Acct: [id number] Name: POLI RAMIREZ Rep #:[id number] : 1950 72 From: Pratima Jaime MD PCP: Barber Carlisle [employer]-Andrea Status:ADM I N Location: [place] [address] Reason for Visit Reason for Visit: Diagnoses [...] H, Lymph % (Auto) 12.6 L, [place] % (Auto) 5.1, Eos % (Auto) 1.5, [...] - Final 02/19/23 13:30 Urine Catheter - Stephesn Urine Culture - Final Culture exhibits no [...] documentation, 30minutes Charges/Coding Visit Charges Inpatient E&M: 78963 Subs Hosp L2 02/24/23 1521 <Electronically signed by Pratima Jaime MD> Cosigner Signature (if applicable): CC: ~ Signed [facility] Work Phone: 1(801) 393-920604-12-[address] Jaime [facility] February 23, 2023 2:03pm Note Date/Time February 23, 2023 10: 52am [facility] Medical Records Department [address] [place] [address] Progress Note - Hospitalist 02/23/23 1051 MR#: [id number] Acct: [id number] Name: POLI RAMIREZ Rep #:[id number] : 1950 72 From: Pratima Jaime MD PCP: ARLENE Edmonds Status:ADM I N Location: [place] [address] Reason for Visit Reason for Visit: Diagnoses [...] 78.1 H, Lymph % (Auto) 13.7L, [place] % (Auto) 6.1, Eos % (Auto) 1.5, [...] documentation, 30minutes Charges/Coding Visit Charges Inpatient E&M: 74176 Subs Hosp L2 02/23/23 1403 <Electronically signed by Pratima Jaime MD> Cosigner Signature (if applicable): CC: ~ Signed [facility] Work Phone: 1(202) 938-249504-12-[address] Gonzalez [facility] February 23, 2023 9:38am Note Date/Time February 23, 2023 9:3 8am [facility] Medical Records Department [address] [place] [address] Progress Note - Cardiology 02/23/2335 MR#: [id number] Acct: [id number] Name: POLI RAMIREZ Rep #:[id number] : 1950 72 From: Miroslava Gonzalez MD PCP: ARLENE Edmonds Status:ADM I N Location: [place] [address] Subjective Subjective No chest pain or shortness [...] 78.1 H, Lymph % (Auto) 13.7L, [place] % (Auto) 6.1, Eos % (Auto) 1.5, [...] H, Lymph % (Auto) 13.7 L, [place] % (Auto) 6.1, Eos % (Auto) 1.5, [...] (4) Anemia: PLAN: Hemoglobin actually improved. 02/23/23 0972 <Electronically signed by Miroslava Gonzalez MD> Cosigner Signature (if applicable): CC: ~ Signed [facility] Work Phone: 1(875) 744-699304-11-[address] Banks [facility] February 22, 2023 2:54pm Note Date/Time February 22, 2023 8:3 6am [facility] Medical Records Department [address] [place] [address] Progress Note - Storage Manager 02/22/23 0832 MR#: [id number] Acct: [id number] Name: POLI RAMIREZ Rep #:[id number] : 1950 72 From: Serge Banks MD PCP: Barber Carlisle, [employer]-C Status:ADM I N Location: ICU ICU03-1 Assessment [...] H, Lymph % (Auto) 9.4 L, [place] % (Auto) 6.6, Eos % (Auto) 1.6, [...] affect normal Charges/Coding Visit Charges Inpatient E&M: 11452 Subs Hosp L2 02/22/23 9913 <Electronically signed by Serge Banks MD> Cosigner Signature (if applicable): CC: ~ Signed [facility] Work Phone: 1(529) 303-939404-11-[address] Gonzalez [facility] February 22, 2023 9:26am Note Date/Time February 22, 2023 9:2 6am [facility] Medical Records Department [address] [place] [address] Progress Note - Cardiology 02/22/23921 MR#: [id number] Acct: [id number] Name: POLI RAMIREZ Rep #:[id number] : 1950 72 From: Miroslava Gonzalez MD [...] H, Lymph % (Auto) 9.4 L, [place] % (Auto) 6.6, Eos % (Auto) 1.6, [...] H, Lymph % (Auto) 9.4 L, [place] % (Auto) 6.6, Eos % (Auto) 1.6, [...] Cosigner Signature (if applicable): CC: ~ Signed [facility] Work Phone: 1(479) 198-735504-11-[address] Jaime [facility] February 22, 2023 8:30am Note Date/Time February 22, 2023 8:3 0am [facility] Medical Records Department [address] [place] [address] Progress Note - Hospitalist 02/22/23819 MR#: [id number] Acct: [id number] Name: POLI RAMIREZ Rep #:[id number] : 1950 72 From: Pratima Jaime MD PCP: Barber Carlisle, [employer]-C Status:ADM I N Location: ICU ICU03-1 Reason [...] H, Lymph % (Auto) 9.4 L, [place] % (Auto) 6.6, Eos % (Auto) 1.6, [...] documentation, 30minutes Charges/Coding Visit Charges Inpatient E&M: 27770 Subs Hosp L2 02/22/23 0830 <Electronically signed by Pratima Jaime MD> Cosigner Signature (if applicable): CC: ~ Signed [facility] Work Phone: [phone]) 467-204404-10-[address] Jaime [facility] February 21, 2023 4:59pm Note Date/Time February 21, 2023 7:0 7am [facility] Medical Records Department [address] [place] [address] Progress Note - Hospitalist 02/21/23706 MR#: [id number] Acct: [id number] Name: POLI RAMIREZ Rep #:[id number] : 1950 72 From: Pratima Jaime MD PCP: ARLENE Edmonds Status:ADM I N Location: ICU [place] [address] Reason for Visit Reason for Visit: Diagnoses [...] H, Lymph % (Auto) 14.1 L, [place] % (Auto) 5.3, Eos % (Auto) 0.7, [...] Bilirubin 0.80, AST 21, ALT 24, Alkaline Hgdbbhrkrpw78, Total Protein 5.6 L, Albumin 2.2 L, [...] documentation, 30minutes Charges/Coding Visit Charges Inpatient E&M: 63570 Subs Hosp L2 02/21/23 2402 <Electronically signed by Pratima Jaime MD> Cosigner Signature (if applicable): CC: ~ Signed [facility] Work Phone: [phone]) 951-844504-10-[address] Banks [facility] February 21, 2023 4:00pm Note Date/Time February 21, 2023 8:0 3am [facility] Medical Records Department [address] [place] [address] Progress Note - Storage Manager 02/21/23 0752 MR#: [id number] Acct: [id number] Name: POLI RAMIREZ Rep #:[id number] : 1950 72 From: Serge Banks MD [...] H, Lymph % (Auto) 14.1 L, [place] % (Auto) 5.3, Eos % (Auto) 0.7, [...] Bilirubin 0.80, AST 21, ALT 24, Alkaline Pyrnljzwkkm51, Total Protein 5.6 L, Albumin 2.2 L, [...] and affect normal Charges/Coding Procedures Hospitalists Procedures: 67496 Critial Care 1st Hr 02/21/23 1600 <Electronically signed by Serge Banks MD> Cosigner Signature (if applicable): CC: ~ Signed [facility] Work Phone: [phone]) 256-437004-10-[address] Gonzalez [facility] February 21, 2023 9:54am Note Date/Time February 21, 2023 9:5 4am [facility] Medical Records Department [facility] [place] [address] Progress Note - Cardiology 02/21/23 0951 MR#: [id number] Acct: [id number] Name: POLI RAMIREZ Rep #:[id number] : 1950 72 From: Miroslava Gonzalez MD PCP: Barber Carlisle [employer]-C Status:ADM I N Location: ICU ICU03-1 Subjective [...] H, Lymph % (Auto) 14.1 L, [place] % (Auto) 5.3, Eos % (Auto) 0.7, [...] Bilirubin 0.80, AST 21, ALT 24, Alkaline Wogytzqzqob34, Total Protein 5.6 L, Albumin 2.2 L, [...] H, Lymph % (Auto) 14.1 L, [place] % (Auto) 5.3, Eos % (Auto) 0.7, [...] Cosigner Signature (if applicable): CC: ~ Signed [facility] Work Phone: [phone] Consult note Author Armani Napier [facility] February 21, 2023 4:07am Note Date/Time February 21, 2023 4:0 7am [facility] Medical Records Department [address] [place] [address] [place] [address] Pharmacokinetic/Renal -Consult 02/21/23 0406 MR#: [id number] Acct: [id number] Name: POLI RAMIREZ Rep #:[id number] : 1950 72 From: Armani Valdez od PCP: Barber Carlisle [employer]-Andrea Status:ADM I N Y Location: ICU ICU03-1 [...] Signature (if applicable): Date CC: ~ Signed [facility] Work Phone: [phone]) 290-211304-09-[address] Monique [facility] February 20, 2023 4:59pm Note Date/Time February 20, 2023 4:37 pm [facility] Medical Records Department [address] [place] [address] Progress Note - Storage Manager 02/20/23 1634 MR#: [id number] Acct: [id number] Name: POLI RAMIREZ Rep #:[id number] : 1950 72 From: Martín Monique MD PCP: Barber Carlisle, [employer]-Andrea Status:ADM I N Location: ICU ICU03-1 Assessment [...] performed. [place] [address] Subjective Subjective Intubated and sedated on ventilator, [...] 80.9 H, Lymph % (Auto) 11.6L, [place] % (Auto) 6.4, Eos % (Auto) 0.2, [...] 6:54 EDT Reading Location ID and State: [address] [place] [address] Tel , Service support , Rhythm Strip Rhythm Strip: Sinus Rhythm Rate: 95 Ectopy: None Physical Exam Narrative 10 system exam done. Unchanged from yesterday. Charges/Coding Procedures Hospitalists Procedures: 08346 Critial Care 1st Hr 02/20/23 1659 <Electronically signed by Martín Monique MD> Cosigner Signature (if applicable): CC: ~ Signed [facility] Work Phone: [phone]) 361-339304-09-[address] Gonzalez [facility] February 20, 2023 10:38am Note Date/Time February 20, 2023 10:3 8am [facility] Medical Records Department [address] [place] [address] [place] [address] Progress Note - Cardiology 02/20/23 1035 MR#: [id number] Acct: [id number] Name: POLI RAMIREZ Rep #:[id number] : 1950 72 From: Miroslava Gonzalez MD PCP: Barber Carlisle, [employer]-Andrea Status:ADM I N Location: ICU ICU03-1 Subjective [...] 80.9 H, Lymph % (Auto) 11.6L, [place] % (Auto) 6.4, Eos % (Auto) 0.2, [...] H, Lymph % (Auto) 11.6 L, [place] % (Auto) 6.4, Eos % (Auto) 0.2, [...] Cosigner Signature (if applicable): CC: ~ Signed [facility] Work Phone: [phone]) [phone] Padron [facility] February 20, 2023 8:46am Note Date/Time February 20, 2023 7:12 am [facility] Medical Records Department [address] [place] [address] Progress Note - Hospitalist 02/20/23711 MR#: [id number] Acct: [id number] Name: POLI RAMIREZ Rep #:[id number] : 1950 72 From: Hernando Padron MD [...] 80.9 H, Lymph % (Auto) 11.6L, [place] % (Auto) 6.4, Eos % (Auto) 0.2, [...] - Preliminary Appears to be normal respiratory ije. Further studies to follow. 02/17/23 22:33 Urine [...] 6:54 EDT Reading Location ID and State: [facility] / [place] Tel , Service support , Rhythm Strip [...] 45 Minutes Charges/Coding Visit Charges Inpatient E&M: 39294 Subs Hosp L2 02/20/23 0846 <Electronically signed by Hernando Padron MD> Cosigner Signature (if applicable): CC: ~ Signed [facility] Work Phone: 1(792) 719-834404-09-[address] Padron [facility] February 20, 2023 7:12am Note Date/Time February 19, 2023 5:15 pm [facility] Medical Records Department [address] [place] [address] Pharmacokinetic/Renal -Consult 02/19/23 1711 MR#: [id number] Acct: [id number] Name: POLI RAMIREZ Rep #:[id number] : 1950 72 From: Gretchen Lance PCP: [...] Date Hernando Padron MD CC: ~ Signed [facility] Work Phone: 1(855) 549-740004-08-[address] Monique [facility] February 19, 2023 1:55pm Note Date/Time February 19, 2023 10:4 7am [facility] Medical Records Department [address] [place] [address] Progress Note - Storage Manager 02/19/23 1047 MR#: [id number] Acct: [id number] Name: POLI RAMIREZ Rep #:[id number] : 1950 72 From: Martín Monique MD [...] performed. [place] 9[address]93, 09[address]. Subjective Subjective Subjective patient is mildly sedated [...] H, Lymph % (Auto) 13.9 L, [place] % (Auto) 6.5, Eos % (Auto) 0.2, [...] Cosigner Signature (if applicable): CC: ~ Signed [facility] Work Phone: 1(247) 187-651504-08-[address] Gonzalez [facility] February 19, 2023 11:57am Note Date/Time February 19, 2023 11:5 6am [facility] Medical Records Department [address] [place] [address] Consultation - Cardiology 02/19/23 1146 MR#: [id number] Acct: [id number] Name: POLI RAMIREZ Rep #:[id number] : 1950 72 From: Miroslava Gonzalez MD [...] intubated and unable to provide any history. [facility] Medical History (Updated 02/19/23 @ 11:53 by [...] bisacodyl 10 mg rectal suppository 10 mg MO DAILY PRN 11/11/22 [History Last Taken Unknown] [...] 00:[address] Rebecca Resendiz DO) housing: usp Smoking Status: Former smoker alcohol intake: never [...] H, Lymph % (Auto) 13.9 L, [place] % (Auto) 6.5, Eos % (Auto) 0.2, [...] Gas Notified Whom Blood Gas Notified Time 4419 Rhythm Strip Rhythm Strip: Sinus Rhythm Rate: [...] H, Lymph % (Auto) 13.9 L, [place] % (Auto) 6.5, Eos % (Auto) 0.2, [...] Gonzalez MD> Cosigner Signature (if applicable): CC: [employer]-Andrea Richey; [employer]-C Barber Carlisle; Dr. Serge Banks MD; Dr. Hernando Padron MD; Dr. Ajit Mcgill DO; Dr. Thomas Ahumada MD; Dr. Rebecca Resendiz DO; Dr. Martín Monique MD; Dr. Krzysztof Pennington MD~ Signed [facility] Work Phone: 1(249) 637-251404-08-[address] Padron [facility] February 19, 2023 8:28am Note Date/Time February 19, 2023 7:11 am [facility] Medical Records Department [address] [place] [address] Progress Note - Hospitalist 02/19/23709 MR#: [id number] Acct: [id number] Name: POLI RAMIREZ Rep #:[id number] : 1950 72 From: Hernando Padron MD [...] H, Lymph % (Auto) 13.9 L, [place] % (Auto) 6.5, Eos % (Auto) 0.2, [...] 55 Minutes Charges/Coding Visit Charges Inpatient E&M: 50848 Subs Hosp L3 02/19/2328 <Electronically signed by Hernando Padron MD> Cosigner Signature (if applicable): CC: ~ Signed [facility] Work Phone: 1(449) 944-739504-07-[address] Monique [facility] February 18, 2023 8:01pm Note Date/Time February 18, 2023 9:53 am [facility] Medical Records Department [address] [place] [address] Consultation - Storage Manager 02/18/2353 MR#: [id number] Acct: [id number] Name: POLI RAMIREZ Rep #:[id number] : 1950 72 From: Martín Monique MD [...] Monique MD> Cosigner Signature (if applicable): cc: [employer]-C Viji Richey; [employer]-C Barber Carlisle; Dr. Serge Banks MD; Dr. [...] Thank you for consulting [facility] for critical care. We will follow the patient with you.. Martín Monique MD [facility] HPI Consult Data Date of Consult: 02/18/23 HPI Narrative Reason for Consultation: Respiratory failure on mechanical ventilation, chronic hypercarbia HPI Narrative: POLI RAMIREZ, is a unfortunate 72-year-old woman who was at the [facility]p for [facility]hab after neck fracture was found unresponsive at her usp with SPO2 70s GCS 3.? No response [...] GERD, frequent falls, insomnia, obstructive sleep apnea, NC, generalized weakness, displaced fracture of the sixth and seventh cervical vertebrae, pancytopenia, history of breast cancer, nicotine dependence, osteoarthritis both shoulders, type 2 diabetes with diabetic neuropathy, impaired mobility, venous insufficiency, urinary incontinence. Her home medications were reviewed. Surgical history: Left breast lumpectomy, C-spine surgery, cholecystectomy. Family history is noncontributory.? Social history she is a former smoker. [facility] Medical History (Updated 02/18/23 @ 12:37 by [...] bisacodyl 10 mg rectal suppository 10 mg MO DAILY PRN 11/11/22 [History Last Taken Unknown] [...] 00:[address] Rebecca Resendiz DO) housing: usp Smoking Status: Former smoker alcohol intake: never [...] H, Lymph % (Auto) 6.6 L, [place] % (Auto) 3.6, Eos % (Auto) 0.2, [...] Sl. Cloudy, Urine pH 5.0, Ur Specific Balfour 1.030, Urine Protein 100 H, Urine Glucose [...] H, Lymph % (Auto) 4.5 L, [place] % (Auto) 5.7, Eos % (Auto) 0.0, [...] ED MD MONIQUE Blood Gas Notified Time 4284 Rhythm Strip Rhythm Strip: Sinus Rhythm Rate: [...] 2:02 EDT , Charges/Coding Procedures Hospitalists Procedures: 49126 [facility]st Hr 02/18/23 1241 <Electronically signed by Martín Monique MD> Cosigner Signature (if applicable): CC: [employer] GOLF C[employer] REPAIRERSGiancarlo Richey; ARLENE Carlisle; Dr. Serge Banks MD; Dr. Ajit Mcglil DO; Dr. Thomas Ahumada MD; Dr. Rebecca Resendiz DO; Dr. Martín Monique MD; Dr. Krzysztof Pennington MD~ Signed [facility] Work Phone: [phone]) 116-492304-07-[address] Padron [facility] February 18, 2023 8:24am Note Date/Time February 18, 2023 7:16 am [facility] Medical Records Department [address] [place] [address] Progress Note - Hospitalist 02/18/23711 MR#: [id number] Acct: [id number] Name: POLI RAMIREZ Rep #:[id number] : 1950 72 From: Hernando Padron MD [...] H, Lymph % (Auto) 6.6 L, [place] % (Auto) 3.6, Eos % (Auto) 0.2, [...] Sl. Cloudy, Urine pH 5.0, Ur Specific Balfour 1.030, Urine Protein 100 H, Urine Glucose [...] H, Lymph % (Auto) 4.5 L, [place] % (Auto) 5.7, Eos % (Auto) 0.0, [...] Notified Whom ED Blood Gas Notified Time 0430 Radiography Diagnostic Testing: Radiology Impression Brain CT [...] 55 Minutes Charges/Coding Visit Charges Inpatient E&M: 66707 Subs Hosp L3 02/18/23 0824 <Electronically signed by Hernando Padron MD> Cosigner Signature (if applicable): CC: ~ Signed [facility] Work Phone: 1(858) 341-798604-07-2023 Consult note Author Armani Napier [facility] February 18, 2023 4:15am Note Date/Time February 18, 2023 4:15 am [facility] Medical Records Department [address] [place] [address] Pharmacokinetic/Renal -Consult 02/18/23413 MR#: [id number] Acct: [id number] Name: POLI RAMIREZ Rep #:[id number] : 1950 72 From: Armani Valdez od PCP: Barber Carlisle E[employer] GOLF CART REPAIRERSGiancarlo Status:ADM I N Y Location: ICU ICU03-1 [...] Signature (if applicable): Date CC: ~ Signed [facility] Work Phone: 1(153) 521-288304-07-2023 History and physical note Author Dr. Resendiz [facility] February 18, 2023 1:48am Note Date/Time February 18, 2023 12:3 2am [facility] Medical Records Department [address] [place] [address] H&P Exam - Hospitalist 02/18/23 0029 MR#: [id number] Acct: [id number] Name: POLI RAMIREZ Rep #:[id number] : 1950 72 From: Rebecca Resendiz DO PCP: ARLENE Edmonds Status:ADM I N Location: ICU [place] [address] HPI - General General Date of Admission: 02/18/23 Date of Service: 02/18/23 Chief Complaint: Unresponsiveness HPI Narrative POLI RAMIREZ, is a 72 F who presented to the emergency department at [facility] secondary to unresponsiveness. The patient was found to be unresponsive by the usp staff at where she lives. Upon presentation [...] EKG showed normal sinus rhythm with normal MO interval however she has slightly prolonged QTc. No signs of ischemic changes were noted. [facility] Medical History Anemia Atherosclerotic heart disease Chronic [...] bisacodyl 10 mg rectal suppository 10 mg MO DAILY PRN 11/11/22 [History Last Taken Unknown] [...] 00:[address] Rebecca Resendiz DO) housing: usp Smoking Status: Former smoker alcohol intake: never [...] H, Lymph % (Auto) 6.6 L, [place] % (Auto) 3.6, Eos % (Auto) 0.2, [...] Sl. Cloudy, Urine pH 5.0, Ur Specific Balfour 1.030, Urine Protein 100 H, Urine Glucose [...] the morning Charges/Coding Visit Charges Inpatient E&M: 05179 Init Hosp L3 02/18/23 0148 <Electronically signed by Rebecca Resendiz DO> Cosigner Signature (if applicable): CC: ARLENE Carlisle; Dr. Rebecca Resendiz DO~ Signed [facility] Work Phone: 1([phone]) 439-642004-07-[address] Tsia [facility] February 18, 2023 12:19am Note Date/Time February 17, 2023 10:3 4pm [facility] Medical Records Department [address] [place] [address] Emergency Department Summary 02/17/23 MR#: [id number] Acct: [id number] Name: POLI RAMIREZ Rep #:[id number] : 1950 72 From: Ellis Tsai MD PCP: ARLENE Edmonds Status:REG E R Location: ED HPI History of Present Illness Chief Complaint: Unresponsive Informant: EMS Narrative Narrative: Patient brought from local usp found unresponsive by usp staff. Barely breathing, hypoxic in the 70s [...] [facility] 60[facility]. Last seen normal about 3 hours prior to evaluation here. Apparently she is in a [facility]p for rehab after a neck fracture. She does not have any collar or cervical spine hardware. EMS also states that family wasapparently there yesterday, and the usp staff was suspicious that they may be in the drugs. [facility] Medical History (Updated 02/18/23 [...] bisacodyl 10 mg rectal suppository 10 mg MO DAILY PRN 11/11/22 [History Last Taken Unknown] [...] H Lymph % (Auto) 6.6 L [place] % (Auto) 3.6 Eos % (Auto) 0.2 [...] Sl. Cloudy Urine pH 5.0 Ur Specific Balfour 1.030 Urine Protein 100 H Urine Glucose [...] Neut % (Auto) Lymph % (Auto) [place] % (Auto) Eos % (Auto) Baso % [...] Color Urine Clarity Urine pH Ur Specific Balfour Urine Protein Urine Glucose (UA) Urine Ketones [...] Management Discussion w/another healthcare provider: Hospitalist and Supervisor Counseling And Guidance (javi mcgill) Procedures Intubations Intubation Method: orotracheal [...] pulmonary disease) Disposition Disposition: Acute Care Hospital [facility] What to do if you have Problems For any increased pain, shortness of breath, bleeding, nausea or vomiting, chestpain, or any unexpected problems, contact your Primary Care Provider. Call [facility] ([phone]) or report to the closest Emergency Room. Call 911 if necessary. 02/18/23 0019 <Electronically signed by Ellis Tsai MD> Cosigner Signature (if applicable): CC: ARLENE Carlisle ~ Signed [facility] Work Phone: 1(799) 948-242104-07-[address] Tsai [facility] February 18, 2023 12:19am Note Date/Time February 17, 2023 10:3 4pm [facility] Medical Records Department [address] [place] [address] Emergency Department Summary 02/17/23 MR#: [id number] Acct: [id number] Name: POLI RAMIREZ Rep #:[id number] : 1950 72 From: Ellis Tsai MD PCP: ARLENE Edmonds Status:REG E R Location: ED HPI History of Present Illness Chief Complaint: Unresponsive Informant: EMS Narrative Narrative: Patient brought from local usp found unresponsive by usp staff. Barely breathing, hypoxic in the 70s [...] ox 60[facility] and patient not breathing. Last seen normal about 3 hours prior to evaluation here. Apparently she is in a usp for rehab after a neck fracture. She does not have any collar or cervical spine hardware. EMS also states that family wasapparently there yesterday, and the usp staff was suspicious that they may be in the drugs. [facility] Medical History (Updated 02/18/23 [...] bisacodyl 10 mg rectal suppository 10 mg MO DAILY PRN 11/11/22 [History Last Taken Unknown] [...] H Lymph % (Auto) 6.6 L [place] % (Auto) 3.6 Eos % (Auto) 0.2 [...] Sl. Cloudy Urine pH 5.0 Ur Specific Balfour 1.030 Urine Protein 100 H Urine Glucose [...] Neut % (Auto) Lymph % (Auto) [place] % (Auto) Eos % (Auto) Baso % [...] Color Urine Clarity Urine pH Ur Specific Balfour Urine Protein Urine Glucose (UA) Urine Ketones [...] 0:01 EDT Reading Location ID and State: [facility] / [place] Tel , Service support , Rhythm Strip Rhythm Strip: Sinus Rhythm Rate: 95 Ectopy: None EKG Initial EKG: Attestation: I personally reviewed and interpreted this EKG as follows: Interpretation: Sinus Rhythm, No Acute Injury Pattern and LBBB Prior EKG tracings: available for review Prior: Unchanged Management Discussion w/another healthcare provider: Hospitalist and Supervisor Counseling And Guidance (javi mcgill) Procedures Intubations Intubation Method: orotracheal [...] pulmonary disease) Disposition Disposition: Acute Care Hospital [facility] What to do if you have Problems For any increased pain, shortness of breath, bleeding, nausea or vomiting, chestpain, or any unexpected problems, contact your Primary Care Provider. Call [facility] ([phone]) or report to the closest Emergency Room. Call 911 if necessary. 02/18/23 0019 <Electronically signed by Ellis Tsai MD> Cosigner Signature (if applicable): CC: ARLENE Carlisle ~ Signed [facility] Work Phone: 1(629) 360-675309-13-2022 Hospital Discharge instructions Patient Education 07/27/2022 11:52:16 [...] are safe for you. General instructions Take enll-omy-ezauhar and prescription medicines only as told by [...] 09/17/2005 Document Revised: 10/13/2018 Document Reviewed: 08/04/2017 [employer] Patient Education 2020 ividence. Follow Up Care 07/11/2022 11:22:15 With:[facility] [phone] skilled Address:Unknown When:1-2 days With:BARBER CARLISLE Address: [address] [facility] [place] [address]- [phone] Business (1) When:1-2 days With:BYRON STUBBS, TRACE Sprague, Neurosurgery Address: [address] [facility] [address] [facility] [place] [address]- [phone] When:08/10/2022 11:00:00 [facility] 09-13-2022 Note Discharge Instructions Thank you for allowing [facility] to assist you with your healthcare needs. [...] results to FREDY Edmonds Neck Xray at [facility], Ground floor Radiology Dept on 08/10/2022 [...] Op 08/10/2022 11:00 AM EDT Neurosurgery [address] [address] Follow Up Appointments Follow Up with BYRON STUBBS, TRACE Sprague, Neurosurgery When 08/10/2022 11:00 AM EDT Where: [address] [address] [phone] Follow Up with [facility] [phone] skilled When Within 1-2 days Follow Up with BARBER CARLISLE When Within 1-2 days Where: [address] [place] [address]- [phone] Business (1) The Following Activity and Diet [...] The extended-release form of oxycodone is for ddatvi-akv-qxeop treatment of pain and should not be [...] against the law. Stop taking all other rswxnn-sdz-vtevg opioid pain medicines when you start taking [...] may report side effects to FDA at 5-262-BDQ-5189. What other drugs will affect oxycodone? You [...] drugs may affect oxycodone. This includes prescription iiycfqq-cml-qnroosx medicines, vitamins, and herbal products. Not all [...] to ensure that the information provided by [employer]. ('[employer]') is accurate, up-to-date, and complete, but no guarantee is made to that effect. Drug information contained herein may be time sensitive. [employer] information has been compiled for use by healthcare practitioners and consumers in the [place] and therefore [employer] does not warrant that uses outside of the [place] are appropriate, unless specifically indicated otherwise. [employer]wus drug information does not endorse drugs, diagnose patients or recommend therapy. [employer]us drug information isan informational resource designed to [...] effective or appropriate for any given patient. [employer] does not assume any responsibility for any aspect of healthcare administered with the aid of information [employer] provides. The information contained herein is not intended to cover all possible uses, directions, precautions, warnings, drug interactions, allergic reactions, or adverse effects. If you have questions about the drugs you are taking, check with your doctor, nurse or pharmacist. Copyright 4414-4826 [employer]. Version: 14.02. Revision Date: 12/11/2020. Education Materials [...] are safe for you. General instructions Take cabv-kgn-anayxat and prescription medicines only as told by [...] 09/17/2005 Document Revised: 10/13/2018 Document Reviewed: 08/04/2017 ElseQR Artist Patient Education 2020 [employer]. Additional Information VACCINATE! IT SAVES LIVES! Members of the community who have not yet received the COVID-19 vaccine and would like to receive it can visit one of [facility] vaccine clinics. There are many vaccine clinic locations within the [facility]. For locations and available times, please visit https://[email or web address].[place].gov/. It is important to note that some COVID mobile vaccine clinics are held outdoors and may be canceled in rainy or stormy conditions. To learn more about pediatric vaccinations (ages 5-11), we invite you to visit the [facility] webpage. https://www.[facility].org/pages/7354-Jdrwi-Hhjkuuougue-Sziesafjdd-Tbqeb-Ukl stions.htmlTo learn more about the COVID-19 vaccine, we invite you to visit the [employer] website for a list of frequently asked questions. [email or web address]-[email or web address]-Ebmaxqgt/wgrlr-Kkokfer-Kzounnqobq _Asked-Questions.pdf [facility] Patient Portal Access Instructions: Stay connected with your healthcare team and access your personal medical information anytime with the [facility] Patient Portal.If you would like a full copy of your medical records, please contact the [facility] Medical Records Department, Tuesday through Tuesday between 8a.m. and 4:30p.m. Please follow the directions below to access the portal: 1.Access the email account you provided upon registration to the [facility].2.Look for an invitation email from [facility].3.Open the email and access the invitation link: Accept Invitation to [facility]4.Fill in the required quijano to create your account. Sign into [email or web address] Athena with your username and password that you [...] you will allow to register on the [facility] Patient Portal for access to your information. You can also access the [facility] Patient Portal on the BuyBox marcy. Simply click on "Health Records" under "Healtheasy2map" and then click on the Vaishali logo. [...] Call your local pharmacy or go to http://bit.Splunk/1G9Ec2n to find one close to you.3.Make use of household items: Use cat litter or old coffee grounds to dispose medications if other options arenot available. Mix your drugs with these household products, seal them in an airtight container andthrow it into the garbage. Call [facility]: [phone] to be sure your drugs can be [...] that I should contact my d octor. Patient/Transplant Rn Signature: Date/Time: Relationship to Patient: Witness Name/Signature: Date/Time: [id number] Note Discharge Instructions Thank you for allowing [...] results to FREDY Edmonds Neck Xray at [facility], [facility] floor Radiology Dept on 08/10/2022 [...] Op 08/10/2022 11:00 AM EDT Neurosurgery [address] [address] Follow Up Appointments Follow Up with BYRON STUBBS, TRACE Sprague, Neurosurgery When 08/10/2022 11:00 AM EDT Where: [address] [phone] [phone] Follow Up with [facility] [phone] skilled When Within 1-2 days Follow Up with BARBER CARLISLE When Within 1-2 days Where: [address] [facility] [place] [address]- [phone] Business (1) The Following Activity and Diet [...] it can visit one of [facility] vaccine clinics. There are many vaccine clinic locations within the [facility]. For locations and available times, please visit https://gettheshot.coronavirus.[place].gov/. It is important to note that some COVID mobile vaccine clinics are held outdoors and may be canceled in rainy or stormy conditions. To learn more about pediatric vaccinations (ages 5-11), we invite you to visit the [facility] webpage. https://www.[facility].org/pages/8475-Eertz-Smeneemkdwx-Uabmzdsczc-Fcfqu-Nvi stions.htmlTo learn more about the COVID-19 vaccine, we invite you to visit the [facility] website for a list of frequently asked questions. [email or web address]/Eombnkaf-[email or web address]-Lhnmwxwo/ehtww-Xcqmuat-Vrpiryubzi _Asked-Questions.pdf [facility] Patient Portal Access Instructions: Stay connected with your healthcare team and access your personal medical information anytime with the [facility] Patient Portal.If you would like a full copy of your medical records, please contact the [facility] Medical Records Department, Tuesday through Tuesday between 8a.m. and 4:30p.m. Please follow the directions below to access the portal: 1.Access the email account you provided upon registration to the hospital.2.Look for an invitation email from [facility].3.Open the email and access the invitation link: Accept Invitation to [facility]4.Fill in the required quijano to create your account. Sign into [email or web address] with your username and password that you [...] you will allow to register on the [facility] Patient Portal for access to your information. You can also access the [facility] Patient Portal on the el?. Simply click on "Health Records" under "HealthData" and then click on the [employer] logo. HOW TO SAFELY DISPOSE OF PRESCRIPTION [...] Call your local pharmacy or go to http://[email or web address]/[email or web address] to find one close to you.3.Make use of household items: Use cat litter or old coffee grounds to dispose medications if other options arenot available. Mix your drugs with these household products, seal them in an airtight container andthrow it into the garbage. Call [facility]: [phone] to be sure your drugs can be [...] that I should contact my d zulmaor. Patient/Transplant Rn Signature: Date/Time: Relationship to Patient: Witness Name/Signature: [facility]Time[facility] Note Discharge Instructions Thank you for allowing [...] results to FREDY Ed[facility]s Neck Xray at [facility], Ground floor Radiology Dept on 08/10/2022 [...] Op 08/10/2022 11:00 AM EDT Neurosurgery [address] [id number] Follow Up Appointments Follow Up with BYRON STUBBS, TRACE Sprague, Neurosurgery When 08/10/2022 11:00 AM EDT Where: [address] [address] [phone] Follow Up with [facility] [phone] skilled When Within 1-2 days Follow Up with BARBER CARLISLE When Within 1-2 days Where: [address] [place] [address] [phone] Business (1) The Following Activity and Diet [...] it can visit one of [facility] vaccine clinics. There are many vaccine clinic locations within the [facility]. For locations and available times, please visit [email or web address]/. It is important to note that some COVID mobile vaccine clinics are held outdoors and may be canceled in rainy or stormy conditions. To learn more about pediatric vaccinations (ages 5-11), we invite you to visit the [facility] webpage. [email or web address]/[email or web address]-[email or web address] [email or web address].htmlTo learn more about the COVID-19 vaccine, we invite you to visit the [facility] website for a list of frequently asked questions. [email or web address] _[email or web address]-Questions.pdf [facility] [employer] Patient Portal Access Instructions: Stay connected with your healthcare team and access your personal medical information anytime with the [facility] Patient Portal.If you would like a full copy of your medical records, please contact the [facility] Medical Records Department, Tuesday through Tuesday between 8a.m. and 4:30p.m. Please follow the directions below to access the portal: 1.Access the email account you provided upon registration to the [facility].2.Look for an invitation email from [facility].3.Open the email and access the invitation link: Accept Invitation to [employer]4.Fill in the required quijano to create your account. Sign into [email or web address] with your username and password that you [...] you will allow to register on the [employer] Patient Portal for access to your information. You can also access the [employer] Patient Portal on the el?. Simply click on "Health Records" under "KDW" and then click on the [employer] logo. HOW TO SAFELY DISPOSE OF PRESCRIPTION [...] Call your local pharmacy or go to http://Cinemacraft.Splunk/[email or web address] to find one close to you.3.Make use of household items: Use cat litter or old coffee grounds to dispose medications if other options arenot available. Mix your drugs with these household products, seal them in an airtight container andthrow it into the garbage. Call [facility]: [phone] to be sure your drugs can be [...] that I should contact my d octor. Patient/Transplant Rn Signature: Date/Time: Relationship to Patient: Witness Name/Signature: Date/Time: [facility]Wolkybtj07-01-6797 Note Date of Service 07/26/2022 Neurosurgical CC: Unstable cervical spine injury, post repair POD #13, C2-C7 posterior cervical decompressive laminectomy and C2-T2 posterior cervical instrumented fusion Patient has no new complaints today. She is motivated to mobilize. She is asking when able to be discharged home. I explained she will need penitentiary care, than goal with home-going. 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 Weight [...] fracture of C6 with extension distraction fracture C6-F1zrxaa no change in alignment. XR Spine Cervical [...] NITA MADERA APRN-SILVINO on 07/26/2022 06:15 AM [facility] HospitalMwzrefvi35-73-3364 Note Date of Service 07/25/2022 Neurosurgical CC: Unstable cervical spine injury, post repair POD #12, C2-C7 posterior cervical decompressive laminectomy and C2-T2 posterior cervical instrumented fusion Patient remains in the hospital awaiting precertification for penitentiary facility No acute events overnight. Patient has [...] fracture of C6 with extension distraction fracture C6-Y7gnrlg no change in alignment. XR Spine Cervical [...] NITA MADERA APRN-SILVINO on 07/25/2022 05:40 AM [facility] HospitalVcntxzdj37-12-2424 Note Date of Service 07/23/2022 Patient reviewed [...] fracture of C6 with extension distraction fracture C6-M7qzett no change in alignment. XR Chest 1 [...] to the office visit Discussed case with damper worker. Aware patient remains ready for discharge. Digitally Signed by NITA MADERA APRN-SUSPENDER CUTTER on 07/24/2022 11:41 AM [facility] HospitalVcxaksdn78-81-2960 Note Chief Complaint Pain Subjective Pain under [...] RUBIO MD FACP on 07/23/2022 04:02 PM [facility] HospitalYawvupva19-17-3181 Note Date of Service 07/23/2022 Patient reviewed [...] fracture of C6 with extension distraction fracture C6-Q8ddqll no change in alignment. XR Spine Cervical 1 View Result Date: July 12, 2022 Verified By: EDER CLARK MD CLINICAL STATEMENT: IMPRESSION: Nondiagnostic assessment of alignment of C6-C7 where known subluxation wasdemonstrated on prior CT scan. XR Spine Thoracic 1 View Result Date: July 11, 2022 Verified By: YAOV PALOMINO DO CLINICAL STATEMENT: IMPRESSION: Nearly nondiagnostic [...] by NITA MADERA on 07/23/2022 06:18 AM [facility] HospitalLwyhvngt69-27-6986 Note Date of Service 07/23/2022 Patient reviewed [...] fracture of C6 with extension distraction fracture C6-Y5usjlx no change in alignment. XR Spine Cervical [...] NITA MADERA APRN-SILVINO on 07/23/2022 06:18 AM [facility] HospitalXeqxgntk13-05-5918 Note Chief Complaint hypotension Subjective Patient was [...] EDT Digitally Signed by FABIANO RUBIO MD [facility] on 07/22/2022 08:16 PM [facility] HospitalWtiyebjp15-44-2965 Neurological surgery Progress note Date of Service [...] AM [1] [1] Discharge Summary; ARYAN VAZ FOREIGN AGENT-SUSPENDER CUTTER 07/21/2022 07:15 EDT Digitally Signed by NITA MADERA APRN-SUSPENDER CUTTER on 07/22/2022 09:56 AM [facility] HospitalXsueiyez40-49-0404 Discharge summary Date of Service 07/21/2022 Discharge Diagnosis 1. S/P fall, resulting in C6-7 distraction injury with bilateral pedicle fractures ([id number] - [facility]) 2. S/P C2-C7 decompressive laminectomy, C2-T2 posterior bone screw/merari fixation and fusion ([id number] - [facility]) 3. DM2 (diabetes mellitus, type [...] and face. She was evaluated in the [facility] emergency department, where she was found to [...] She is ready to be discharged to [facility]. Her discharge instructions and restrictions been provided to [facility]. Her follow-up appointment has been arranged. Allergies [...] fracture of C6 with extension distraction fracture C6-X8nixrd no change in alignment. XR Chest 1 [...] Date: July 13, 2022 Verified By: RICHAR HSASAN MD CLINICAL STATEMENT: IMPRESSION: Severely limited exam. [...] When 07/27/2022 09:30 AM EDT Where: [address] [facility] [address] [facility] [address]- [phone] Follow Up Appointments See above Follow Up [...] Score No qualifying data available. Discharge Disposition [facility] Information Provided To Patient and [facility] Time Spent 15 min Digitally Signed by ARYAN VAZ on 07/21/2022 08:46 AM Digitally Signed by TRACE MATTHEWS MD on 07/21/2022 11:25 AM [facility] HospitalPhitkgea82-44-1480 Discharge summary Date of Service 07/21/2022 Discharge Diagnosis 1. S/P fall, resulting in C6-7 distraction injury with bilateral pedicle fractures ([id number] - [facility]) 2. S/P C2-C7 decompressive laminectomy, C2-T2 posterior bone screw/merari fixation and fusion ([id number] - [facility]) 3. DM2 (diabetes mellitus, type [...] and face. She was evaluated in the [facility] emergency department, where she was found to [...] She is ready to be discharged to [facility]. Her discharge instructions and restrictions been provided to [facility]. Her follow-up appointment has been arranged. Allergies [...] fracture of C6 with extension distraction fracture C6-I0epokz no change in alignment. XR Chest 1 [...] When 07/27/2022 09:30 AM EDT Where: [address] [facility] [address] [place] [address]- [phone] Follow Up Appointments See above Follow Up [...] Score No qualifying data available. Discharge Disposition [facility] Information Provided To Patient and [facility] Time Spent 15 min Digitally Signed by ARYAN VAZ on 07/21/2022 08:46 AM Digitally Signed by TRACE MATTHEWS MD on 07/21/2022 11:25 AM [facility] HospitalHlutnwue59-26-0808 Discharge summary Date of Service 07/21/2022 Discharge Diagnosis 1. S/P fall, resulting in C6-7 distraction injury with bilateral pedicle fractures ([id number] - [facility]) 2. S/P C2-C7 decompressive laminectomy, C2-T2 posterior bone screw/merari fixation and fusion ([id number] - [facility]) 3. DM2 (diabetes mellitus, type [...] and face. She was evaluated in the [facility] emergency department, where she was found to [...] She is ready to be discharged to [facility]. Her discharge instructions and restrictions been provided to [facility]. Her follow-up appointment has been arranged. Allergies NKA Procedures S/P C2 to C7 decompressive laminectomy, C2 to T2 posterior bone screw/merari fixation (Infinity; Medtronic) with autograft/allograft (Infuse; Medtronic) fusion with navigation and intraoperative SSEP, MEP and EMG monitoring- Consults Consult to Physician - Ordered -- 07/11/22 14:17:00 EDT, VAISHALI PKIE (For Consultation Assignment Only NO other Orders), [...] fracture of C6 with extension distraction fracture C6-N1gpknp no change in alignment. XR Chest 1 [...] When 07/27/2022 09:30 AM EDT Where: 26[address] [facility] [address] [facility] [address]- [phone] Follow Up Appointments See above Follow Up [...] Score No qualifying data available. Discharge Disposition [facility] Information Provided To Patient and [facility] Time Spent 15 min Digitally Signed by ARYAN VAZ on 07/21/2022 08:46 AM Digitally Signed by TRACE MATTHEWS MD on 07/21/2022 11:25 AM [facility] HospitalOzwltcli56-13-0334 Note Date of Service 07/21/22 Chief Complaint Weakness Subjective Patient is a very pleasant 71-year-old female with a past medical history significant for hypertension, obesity, hyperlipidemia, COPD, severe restrictive airway disease follows with [facility], noninsulin-dependent type 2 diabetes, venous insufficiency, goiter, GERD, chronic back pain and hypoxic respiratory failure wearing 2 L oxygen via nasal cannula continuous at home. Patient originally presented to [facility] emergency department on July 11, 2022. Patient sustained a mechanical fall over her walker landing on the left side of her face. [facility]. Patient was noted to have significant cervical spine injury and transferred to [facility] emergency department for further evaluation. Patient was [...] patient's primary care physician covering provider at penitentiary facility. Continue home medication. Blood glucose checks [...] therapy involved. Recommending patient be discharged to penitentiary facility. Patient is agreeable to discharge to penitentiary facility. Discharge per primary team. At this [...] by JOANNA TOMLINSON on 07/21/2022 02:49 PM [facility] HospitalVfmvdqeu52-15-5084 Discharge summary Date of Service 07/21/2022 Discharge Diagnosis 1. S/P fall, resulting in C6-7 distraction injury with bilateral pedicle fractures ([id number] - [facility]) 2. S/P C2-C7 decompressive laminectomy, C2-T2 posterior bone screw/merari fixation and fusion ([id number] - [facility]) 3. DM2 (diabetes mellitus, type [...] and face. She was evaluated in the [facility] emergency department, where she was found to [...] She is ready to be discharged to [facility]. Her discharge instructions and restrictions been provided to [facility]. Her follow-up appointment has been arranged. Allergies [...] fracture of C6 with extension distraction fracture C6-G0trxna no change in alignment. XR Chest 1 [...] When 07/27/2022 09:30 AM EDT Where: [address] [place] [address]- [phone] Follow Up Appointments See above Follow Up [...] Score No qualifying data available. Discharge Disposition [facility] Information Provided To Patient and [facility] Time Spent 15 min Digitally Signed by ARYAN VAZ on 07/21/2022 08:46 AM Digitally Signed by TRACE MATTHEWS MD on 07/21/2022 11:25 AM [facility] HospitalVlwcnicj94-58-4831 Note Date of Service 07/20/22 Reason for Consultation Medical management Referring Physician Dr. [place] History of Present Illness Patient is a very pleasant 71-year-old female with a past medical history significant for hypertension, obesity, hyperlipidemia, COPD, severe restrictive airway disease follows with [facility], noninsulin-dependent type 2 diabetes, venous insufficiency, goiter, GERD, chronic back pain and hypoxic respiratory failure wearing 2 L oxygen via nasal cannula continuous at home. Patient originally presented to [facility] emergency department on July 11, 2022. Patient sustained a mechanical fall over her walker landing on the left side of her face. [facility]. Patient was noted to have significant cervical spine injury and transferred to [facility] emergency department for further evaluation. Patient was [...] patient's primary care physician covering provider at penitentiary facility. Continue home medication. Blood glucose checks TID. Sliding scale TID ADA diet Glycemic goal <180 Hypokalemia- resolved. Repeat BMP reviewed. Chronic hypoxic respiratory failure. Patient is tolerating oxygen via nasal cannula. 2 L which is baseline. Acute E. coli urinary tract infection. Patient has completed a full course of ceftriaxone Therapy and occasional therapy consult. Recommending patient be discharged to penitentiary facility. Patient is agreeable to discharge to penitentiary facility. Discharge per primary team. At this [...] by JOANNA TOMLINSON on 07/20/2022 01:37 PM [facility] HospitalVxjwvbbr60-01-1098 Neurological surgery Progress note Date of Service 07/20/2022 Chief Complaint S/P C2 to C7 decompressive laminectomy, C2 to T2 posterior bone screw/merari fixation (Infinity; Medtronic) with autograft/allograft (Infuse; Medtronic) fusion with navigation and intraoperative SSEP, MEP and EMG pzljfuhbrj-chrc-rd day #7. This is a 71-year-old female, who sustained an unstable C6-7 fracture/dislocation status post falling over her walker and landing on the left side of her body and face. She was evaluated in the [facility] emergency department, where she was found to [...] TRACE MATTHEWS MD on 07/20/2022 10:34 AM [facility] HospitalHshnfwlv96-64-6742 Progress note Date of Service July 19, [...] TRACE MATTHEWS MD on 07/19/2022 09:14 AM [facility] HospitalBrziljcz59-18-8559 Note Date of Service 07/18/2022 Split/shared visit [...] completed, have provided recommendations for skilled rehab. COORDINATOR CARDIOPULMONARY SERVICES to assist with discharge planning. ICU team following for medical and pulmonary management; appreciate their support and assistance incare of patient. Please refer to Dr. Mccallum's addendum for further details. [1] VL Venous US/Doppler Both Legs(for DVT); 07/18/2022 11:00 EDT Digitally Signed by PELON RUIZ APRN-SILVINO on 07/18/2022 04:44 PM [facility] HospitalNnelwjjj06-46-6238 Note Date of Service 07/18/2022 Split/shared visit [...] completed, have provided recommendations for skilled rehab. COORDINATOR CARDIOPULMONARY SERVICES to assist with discharge planning. ICU team following for medical and pulmonary management; appreciate their support and assistance incare of patient. Please refer to Dr. Mccallum's addendum for further details. [1] VL Venous US/Doppler Both Legs(for DVT); 07/18/2022 11:00 EDT Digitally Signed by PELON RUIZ on 07/18/2022 04:44 PM [facility] HospitalTmchagic91-44-8338 Note Date of Service 07/18/2022 Split/shared visit [...] completed, have provided recommendations for skilled rehab. COORDINATOR CARDIOPULMONARY SERVICES to assist with discharge planning. ICU team following for medical and pulmonary management; appreciate their support and assistance incare of patient. Please refer to Dr. Mccallum's addendum for further details. [1] VL Venous US/Doppler Both Legs(for DVT); 07/18/2022 11:00 EDT Digitally Signed by PELON RUIZ on 07/18/2022 04:44 PM [facility] HospitalUinzycvq80-28-2274 Note Date of Service 07/18/2022 Split/shared visit [...] completed, have provided recommendations for skilled rehab. COORDINATOR CARDIOPULMONARY SERVICES to assist with discharge planning. ICU team following for medical and pulmonary management; appreciate their support and assistance incare of patient. Please refer to Dr. Mccallum's addendum for further details. [1] VL Venous US/Doppler Both Legs(for DVT); 07/18/2022 11:00 EDT Digitally Signed by PELON RUIZ on 07/18/2022 04:44 PM [facility] HospitalZtutnwfw16-28-4795 Note Date of Service 07/18/22 Subjective This [...] KENY VARGAS MD on 07/18/2022 08:05 AM [facility] HospitalFpvdqmaq58-17-5369 Note Date of Service 07/17/2022 Split/shared visit [...] lower extremities for assessment of possible DVT/SVT. Storage Manager following for medical and pulmonary management; appreciate their support and assistancein care of patient. Please refer to Dr. Mccallum's addendum for further details. Dr Lerner like patient to remain in ICU until Doppler ultrasounds have been completed. Further instructions will be provided at that time. Digitally Signed by PELON RUIZ on 07/17/2022 11:16 AM [facility] HospitalVahwhtqx50-24-2313 Note Date of Service 07/17/22 Subjective This [...] KENY VARGAS MD on 07/17/2022 08:39 AM [facility] HospitalKwajobma38-03-6983 Note Date of Service 07/17/2022 Split/shared visit [...] lower extremities for assessment of possible DVT/SVT. Storage Manager following for medical and pulmonary management; appreciate their support and assistancein care of patient. Please refer to Dr. Mccallum's addendum for further details. Dr Lerner like patient to remain in ICU until Doppler ultrasounds have been completed. Further instructions will be provided at that time. Digitally Signed by PELON RUIZ on 07/17/2022 11:16 AM [facility] HospitalDtopogoh06-70-5021 Neurological surgery Progress note Date of Service 07/16/2022 Chief Complaint S/P C2 to C7 decompressive laminectomy, C2 to T2 posterior bone screw/merari fixation (Infinity; Medtronic) with autograft/allograft (Infuse; Medtronic) fusion with navigation and intraoperative SSEP, MEP and EMG hgwhnfctfh-vdiu-ah day #3. This is a 71-year-old female, who sustained an unstable C6-7 fracture/dislocation status post falling over her walker and landing on the left side of her body and face. She was evaluated in the [facility] emergency department, where she was found to [...] neurosurgery to be notified to further evaluate. Storage Manager following for medical and pulmonary management. Time Spent 15 min Digitally Signed by ARYAN VAZ APRN-SILVINO on 07/16/2022 12:12 PM [facility] HospitalPuhyyxbk37-36-4980 Neurological surgery Progress note Date of Service 07/16/2022 Chief Complaint S/P C2 to C7 decompressive laminectomy, C2 to T2 posterior bone screw/merari fixation (Infinity; Medtronic) with autograft/allograft (Infuse; Medtronic) fusion with navigation and intraoperative SSEP, MEP and EMG frovbagwpu-otht-ii day #3. This is a 71-year-old female, who sustained an unstable C6-7 fracture/dislocation status post falling over her walker and landing on the left side of her body and face. She was evaluated in the [facility] emergency department, where she was found to [...] brace at all times. -Likely transfer to [facility] tomorrow. Dr. Lerner would prefer to wait 5 days post-op to start chemical DVT prophylaxis. Will obtain LE dopplars on Tuesday and then likely clear patient to start Heparin sq. -In meantime continue SCDS. -Continue measuring thigh and calf bilateral twice a day and if increases in size by 1cm neurosurgery to be notified to further evaluate. Storage Manager following for medical and pulmonary management. Time Spent 15 min Digitally Signed by ARYAN VAZ on 07/16/2022 12:12 PM [facility] HospitalBovadrjq51-94-5695 Note Date of Service 07/16/2022 Chief Complaint [...] C2C3 so that patient was transferred to [place] where she was evaluated per neurosurgery Dr. [...] ANNE-MARIE MCGRAW MD on 07/16/2022 09:57 AM [facility] HospitalWfpccjdy32-96-4043 Neurological surgery Progress note Date of Service 07/14/2022 Chief Complaint S/P C2 to C7 decompressive laminectomy, C2 to T2 posterior bone screw/merari fixation (Infinity; Medtronic) with autograft/allograft (Infuse; Medtronic) fusion with navigation and intraoperative SSEP, MEP and EMG pgrgiqekii-daqt-pf day #1. This is a 71-year-old female, who sustained an unstable C6-7 fracture/dislocation status post falling over her walker and landing on the left side of her body and face. She was evaluated in the [facility] emergency department, where she was found to have a distraction extension fracture at C6/7 with bilateral pedicle fractures. She was transferred to [facility] for Neurosurgery evaluation. Shewas taken to surgery yesterday for a C2-C7 decompressive laminectomy and C2-T2 posterior bone screw/merari fixation and fusion. She does have facial swelling, and therefore remains intubated. Storage Manager plan to keep patient intubated today [...] No edema noted Neurological: See HPI Skin: [place], warm, and dry. Psychiatric: Mood stable. Cooperative. [...] fracture of C6 with extension distraction fracture C6-A3feips no change in alignment. XR Chest 1 [...] be extubated tomorrow and can start PT/OT. Storage Manager following for medical and pulmonary management. Time Spent 15 min Digitally Signed by ARYAN VAZ on 07/14/2022 11:59 AM [facility] HospitalEdkpltmz93-56-6572 Neurological surgery Progress note Date of Service 07/15/2022 Chief Complaint S/P C2 to C7 decompressive laminectomy, C2 to T2 posterior bone screw/merari fixation (Infinity; Medtronic) with autograft/allograft (Infuse; Medtronic) fusion with navigation and intraoperative SSEP, MEP and EMG vmbdprjkig-kgva-pi day #2. This is a 71-year-old female, who sustained an unstable C6-7 fracture/dislocation status post falling over her walker and landing on the left side of her body and face. She was evaluated in the [facility] emergency department, where she was found to [...] neurosurgery to be notified to further evaluate. Storage Manager following for medical and pulmonary management. Time Spent 15 min Digitally Signed by ARYAN VAZ on 07/15/2022 01:20 PM [facility] HospitalWvjeykpr88-98-6183 Neurological surgery Progress note Date of Service 07/14/2022 Chief Complaint S/P C2 to C7 decompressive laminectomy, C2 to T2 posterior bone screw/merari fixation (Infinity; Medtronic) with autograft/allograft (Infuse; Medtronic) fusion with navigation and intraoperative SSEP, MEP and EMG [id number] day #1. This is a 71-year-old female, who sustained an unstable C6-7 fracture/dislocation status post falling over her walker and landing on the left side of her body and face. She was evaluated in the [facility] emergency department, where she was found to have a distraction extension fracture at C6/7 with bilateral pedicle fractures. She was transferred to [facility] for Neurosurgery evaluation. Shewas taken to surgery yesterday for a C2-C7 decompressive laminectomy and C2-T2 posterior bone screw/merari fixation and fusion. She does have facial swelling, and therefore remains intubated. Storage Manager plan to keep patient intubated today [...] No edema noted Neurological: See HPI Skin: [place], warm, and dry. Psychiatric: Mood stable. Cooperative. [...] fracture of C6 with extension distraction fracture C6-M4xeihu no change in alignment. XR Chest 1 [...] be extubated tomorrow and can start PT/OT. Storage Manager following for medical and pulmonary management. Time Spent 15 min Digitally Signed by ARYAN VAZ on 07/14/2022 11:59 AM [id number] Neurological surgery Progress note Date of Service 07/15/2022 Chief Complaint S/P C2 to C7 decompressive laminectomy, C2 to T2 posterior bone screw/merari fixation (Infinity; Medtr[employer]) with autograft/allograft (Infuse; [employer]) fusion with navigation and intraoperative SSEP, MEP and EMG [id number] day #2. This is a 71-year-old female, who sustained an unstable C6-7 fracture/dislocation status post falling over her walker and landing on the left side of her body and face. She was evaluated in the [facility] emergency department, where she was found to [...] neurosurgery to be notified to further evaluate. Storage Manager following for medical and pulmonary management. Time Spent 15 min Digitally Signed by ARYAN VAZ on 07/15/2022 01:20 PM [id number] Note Date of Service 07/15/2022 Subjective 71 [...] C2C3 so that patient was transferred to [place] where she was evaluated per neurosurgery Dr. [...] DARLING EDWARDS MD on 07/15/2022 08:56 AM [id number] Note ORIGINAL EXAMINATION: ONE XRAY VIEW OF [...] 07/15/2022 6:01:36 AM Ordering Provider: OSEI STOVER [id number] Note ORIGINAL EXAMINATION: ONE XRAY VIEW OF [...] Sign Date: 07/15/2022 6:01:36 AM Ordering Provider: [facility]08-31-2022 Neurological surgery Progress note Date of Service 07/14/2022 Chief Complaint S/P C2 to C7 decompressive laminectomy, C2 to T2 posterior bone screw/merari fixation (Infinity; Medtr[employer]) with autograft/allograft (Infuse; [employer]) fusion with navigation and intraoperative SSEP, MEP and EMG [id number] day #1. This is a 71-year-old female, who sustained an unstable C6-7 fracture/dislocation status post falling over her walker and landing on the left side of her body and face. She was evaluated in the [facility] emergency department, where she was found to have a distraction extension fracture at C6/7 with bilateral pedicle fractures. She was transferred to [facility] for Neurosurgery evaluation. Shewas taken to surgery yesterday for a C2-C7 decompressive laminectomy and C2-T2 posterior bone screw/merari fixation and fusion. She does have facial swelling, and therefore remains intubated. Storage Manager plan to keep patient intubated today [...] No edema noted Neurological: See HPI Skin: [place], warm, and dry. Psychiatric: Mood stable. Cooperative. [...] fracture of C6 with extension distraction fracture C6-S4pmgac no change in alignment. XR Chest 1 [...] be extubated tomorrow and can start PT/OT. Storage Manager following for medical and pulmonary management. Time Spent 15 min Digitally Signed by ARYAN VAZ on 07/14/2022 11:59 AM [facility]Nfblygiu06-31-2416 Note ORIGINAL EXAMINATION: ONE SUPINE XRAY VIEW(S) [...] Sign Date: 07/14/2022 9:41:47 AM Ordering Provider: [facility]08-31-2022 Note ORIGINAL EXAMINATION: ONE SUPINE [...] Sign Date: 07/14/2022 9:41:47 AM Ordering Provider: [facility]08-31-2022 Note Date of Service 07/14/2022 Chief Complaint [...] C2C3 so that patient was transferred to [place] where she was evaluated per neurosurgery Dr. [...] ANNE-MARIE MCGRAW MD on 07/16/2022 09:53 AM [address]31-2022 Note ORIGINAL EXAMINATION: CT OF THE [...] 07/14/2022 6:52:00 AM Ordering Provider: NITA MADERA [id number] Note ORIGINAL EXAMINATION: ONE XRAY VIEW OF [...] Sign Date: 07/14/2022 6:00:18 AM Ordering Provider: [facility]08-31-2022 Note ORIGINAL EXAMINATION: ONE XRAY VIEW [...] Sign Date: 07/14/2022 6:00:18 AM Ordering Provider: [facility]08-31-2022 Note ORIGINAL EXAMINATION: CT OF [...] Sign Date: 07/14/2022 6:52:00 AM Ordering Provider: [facility]08-31-2022 Note ORIGINAL EXAMINATION: SPOT FLUOROSCOPIC [...] 07/14/2022 4:26:28 AM Ordering Provider: MARYCHUY LERNER [facility] HospitalTdtwqhmh25-07-5639 Note ORIGINAL EXAMINATION: ONE XRAY VIEW OF [...] 07/13/2022 9:06:27 PM Ordering Provider: [place] COOL [facility] HospitalDitzvkhg40-56-2780 Note ORIGINAL EXAMINATION: ONE XRAY VIEW OF [...] Date: 07/13/2022 9:06:27 PM Ordering Provider: [place] [facility]OL[facility] HospitalBjlykwhe37-84-7556 Note ORIGINAL EXAMINATION: SPOT FLUOROSCOPIC IMAGES 07/13/2022 [...] Date: 07/14/2022 4:26:28 AM Ordering Provider: MARYCHUY [facility]Day[facility] [id number] Note Date of Service 07/13/2022 Split/shared visit with Dr. Jaswant MD Neurosurgical CC: Unstable C6-7 fracture or dislocation post fall. C2-C3 stenosis with cervical myelopathy Patient is a 71-year-old female who was brought to [facility] via EMS after sustaining a fall over her walker landing on her left side and face on 07/11/2022. 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 Patient transferred to [facility] ED. 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 Negative Pierre's. She does have 3 beats [...] pain post fall. She was taken to [facility] by EMS found to have cervical spine injury and transferred to [facility]. Stat MRI completed and patient was admitted [...] by NITA MADERA on 07/13/2022 05:50 AM [facility] [id number] Note ORIGINAL EXAMINATION: TWO XRAY VIEWS OF [...] Sign Date: 07/13/2022 3:47:11 PM Ordering Provider: [facility]08-30-2022 Note ORIGINAL EXAMINATION: TWO XRAY VIEWS [...] Sign Date: 07/13/2022 3:47:11 PM Ordering Provider: [facility]08-30-2022 Anesthesiology Consult note Patient: POLI RAMIREZ [...] a prior cardiac history including a previous NC, however, she has not had any interventions, [...] Constipation NS 1,000 mL: 50 mL/hr, Intravenous [place] 325- 5 mg oral tablet: 1 tab(s), [...] list: Medical Chronic anemia / SNOMED CT 554120369 / Confirmed Chronic back pain / SNOMED CT 878144829 / Confirmed COPD / SNOMED CT 77808259 / Confirmed Hypertension, essential / SNOMED CT 86920112 / Confirmed GERD (gastroesophageal reflux disease) / SNOMED CT [id number] / Confirmed Goiter / SNOMED CT 7467227 / Confirmed Hyperlipidemia / SNOMED CT 21023606 / Confirmed Incontinence of urine / SNOMED CT 8009147144 / Confirmed, Active Problems (30) Anemia Arthritis [...] incontinence Histories Past Medical History: Active COPD (73959132) Chronic back pain (107862651) Resolved H/O hypercholesterolemia (5577293032): Resolved. Hypernatremia (2417991394): Resolved. Family History: Heart disease Father Brother Arthritis Daughter Stroke Mother Cancer Sister HTN - Hypertension Mother GERD (gastroesophageal reflux disease) Daughter Diverticulitis Daughter Procedure history: None (399023713). Appendectomy (253583740). Comments: 08/11/2017 12:13 SHAMA BOLTON left water taken off Tubal ligation (641501058). Cholecystectomy (60722124). Arthroscopic knee operation (8931034880). Comments: 12/24/2019 13:16 SHAMA Gabriel right Lumpectomy of breast (1663671584). Comments: 12/24/2019 13:16 SHAMA Gabriel left Phacoemulsification of cataract with intraocular lens implantation (8707595282). Comments: 12/24/2019 13:16 SHAMA Gabriel both eyes Colonoscopy (230521984). Esophagogastroduodenoscopy (104534966). Cardiac catheter (2095697803). Comments: 12/24/2019 13:17 SHAMA Gabriel years ago [...] kg (Modified) Weight Lbs 217.1 lb (Modified) [place] Body Weight 56.91 kg BSA Admission 2.05 [...] On and Limits Checked Nail Bed Color [place] Capillary Refill < 2 seconds Heart Sounds [...] grimaces Skin Symptoms Bruising All Extremity Description [place] Skin Temperature Warm Temperature All Extremities Warm Skin Description [place], Normal for ethnicity Skin Integrity Not intact Skin Turgor Non-Elastic Mucous Membrane Color [place] Mucous Membrane Description Moist Nose Anterior Skin [...] Zeke Obeys simple commands Best Verbal Response [place] Oriented Zeke Coma Score 14 YANICK Yes [...] Appropriate, Calm, Cooperative Orientation Oriented x 4 Global Risk Management Director On Yes Patient Dressed In Hospital gown [...] On and Limits Checked Nail Bed Color [place] Capillary Refill < 2 seconds Heart Sounds ICU S1S2 Heart Rhythm Regular Dorsalis Pedis Pulse, Left 1+ Thready Dorsalis Pedis Pulse, Right 1+ Thready Posttibial Pulse, Left 1+ Th[place] Posttibial Pulse, Right 1+ Thready Radial Pulse, Left 2+ Normal Radial Pulse, Right 2+ Normal Edema Generalized None Cardiac Rhythm Sinus tachycardia Monitoring Lead II, V1/MCL1 MO Interval 0.16 second(s) QRS Duration 0.09 second(s) [...] grimaces Skin Symptoms Bruising All Extremity Description [place] Skin Temperature Warm Temperature All Extremities Warm Skin Description [place], Normal for ethnicity Skin Integrity Not intact Skin Turgor Non-Elastic Mucous Membrane Color [place] Mucous Membrane Description Moist Nose Anterior Skin [...] Response Zeke To voice Best Motor Response [place] Obeys simple commands Best Verbal Response [place] Oriented Zeke Coma Score 14 YANICK Yes [...] On and Limits Checked Nail Bed Color [place] Capillary Refill < 2 seconds Heart Sounds [...] grimaces Skin Symptoms Bruising All Extremity Description [place] Skin Temperature Warm Temperature All Extremities Warm Skin Description [place], Normal for ethnicity Skin Integrity Not intact Skin Turgor Elastic Mucous Membrane Color [place] Mucous Membrane Description Moist Nose Anterior Skin [...] Arousable with minimal stimulation Eye Opening Response [place] To voice Best Motor Response Zeke Obeys simple commands Best Verbal Response Zeke Oriented [place] Coma Score 14 YANICK Yes Left Pupil [...] Mode Order Detail Bed Nurse and Monitor Adjunct Instructor In Economics Details Form Adjunct Instructor In Economics Details Form 07/13/2022 0:40 EDT Notify date/time [...] On and Limits Checked Nail Bed Color [place] Capillary Refill < 2 seconds Heart Sounds ICU S1S2 Heart Rhythm Regular Dorsalis Pedis Pulse, Left 1+ Thready Dorsalis Pedis Pulse, Right 1+ [place] Posttibial Pulse, Left 1+ [place] Posttibial Pulse, Right 1+ [place] Radial Pulse, Left 2+ Normal Radial Pulse, Right 2+ Normal Edema Generalized None Cardiac Rhythm Sinus tachycardia Monitoring Lead II, V1/MCL1 MO Interval 0.13 second(s) QRS Duration 0.08 second(s) [...] grimaces Skin Symptoms Bruising All Extremity Description [place] Skin Temperature Warm Temperature All Extremities Warm Skin Description [place], Normal for ethnicity Skin Integrity Not intact Skin Turgor Non-Elastic Mucous Membrane Color [place] Mucous Membrane Description Moist Nose Anterior Skin [...] Arousable with minimal stimulation Eye Opening Response [place] To voice Best Motor Response Zeke Obeys simple commands Best Verbal Response Zeke Oriented [place] Coma Score 14 YANICK Yes Left Pupil [...] Appropriate, Calm, Cooperative Orientation Oriented x 4 [id number] Note Date of Service 07/13/2022 Split/shared visit with Dr. Jaswant MD Neurosurgical CC: Unstable C6-7 fracture or dislocation post fall. C2-C3 stenosis with cervical myelopathy Patient is a 71-year-old female who was brought to [facility] via EMS after sustaining a fall over her walker landing on her left side and face on 07/11/2022. 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 Patient transferred to [place] ED. 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 Negative Pierre's. She does have 3 beats [...] pain post fall. She was taken to [facility] by EMS found to have cervical spine injury and transferred to [place] ED. Stat MRI completed and patient was [...] by NITA MADERA on 07/13/2022 05:50 AM [facility] HospitalAdzivrzd46-49-1401 Anesthesiology Consult note* ALEJANDRA HERNANDEZ MD: PERFORM, SIGN, VERIFY Event Display: Anesthesiology Consultation Authored Date: [id number] Patient: POLI RAMIREZ Age: 71 years Sex: [...] a prior cardiac history including a previous NC, however, she has not had any interventions, [...] Constipation NS 1,000 mL: 50 mL/hr, Intravenous [place] 325- 5 mg oral tablet: 1 tab(s), [...] list: Medical Chronic anemia / SNOMED CT 894670004 / Confirmed Chronic back pain / SNOMED CT 434135495 / Confirmed COPD / SNOMED CT 72830827 / Confirmed Hypertension, essential / SNOMED CT 26456266 / Confirmed GERD (gastroesophageal reflux disease) / SNOMED CT [id number] / Confirmed Goiter / SNOMED CT 8666317 / Confirmed Hyperlipidemia / SNOMED CT 35631302 / Confirmed Incontinence of urine / SNOMED CT 3698806633 / Confirmed, Active Problems (30) Anemia Arthritis [...] incontinence Histories Past Medical History: Active COPD (09250777) Chronic back pain (127581845) Resolved H/O hypercholesterolemia (8525327001): Resolved. Hypernatremia (3553198038): Resolved. Family History: Heart disease Father Brother Arthritis Daughter Stroke Mother Cancer Sister HTN - Hypertension Mother GERD (gastroesophageal reflux disease) Daughter Diverticulitis Daughter Procedure history: None (457689805). Appendectomy (603963688). Comments: 08/11/2017 12:13 SHAMA BOLTON left water taken off Tubal ligation (409135251). Cholecystectomy (74057280). Arthroscopic knee operation (8534982339). Comments: 12/24/2019 13:16 SHAMA Gabriel right Lumpectomy of breast (1590072142). Comments: 12/24/2019 13:16 SHAMA Gabriel left Phacoemulsification of cataract with intraocular lens implantation (8812482755). Comments: 12/24/2019 13:16 SHAMA Gabriel both eyes Colonoscopy (755438283). Esophagogastroduodenoscopy (682555019). Cardiac catheter (6526447257). Comments: 12/24/2019 13:17 SHAMA Gabriel years ago [...] kg (Modified) Weight Lbs 217.1 lb (Modified) [place] Body Weight 56.91 kg BSA Admission 2.05 [...] On and Limits Checked Nail Bed Color [place] Capillary Refill < 2 seconds Heart Sounds [...] grimaces Skin Symptoms Bruising All Extremity Description [place] Skin Temperature Warm Temperature All Extremities Warm Skin Description [place], Normal for ethnicity Skin Integrity Not intact Skin Turgor Non-Elastic Mucous Membrane Color [place] Mucous Membrane Description Moist Nose Anterior Skin [...] Arousable with minimal stimulation Eye Opening Response [place] To voice Best Motor Response Zeke Obeys simple commands Best Verbal Response [place] Oriented Zeke Coma Score 14 YANICK Yes [...] Appropriate, Calm, Cooperative Orientation Oriented x 4 Global Risk Management Director On Yes Patient Dressed In Hospital gown [...] On and Limits Checked Nail Bed Color [place] Capillary Refill < 2 seconds Heart Sounds ICU S1S2 Heart Rhythm Regular Dorsalis Pedis Pulse, Left 1+ Thready Dorsalis Pedis Pulse, Right 1+ [place]ready Posttibial Pulse, Left 1+ Th[place] Posttibial Pulse, Right 1+ [place] Radial Pulse, Left 2+ Normal Radial Pulse, Right 2+ Normal Edema Generalized None Cardiac Rhythm Sinus tachycardia Monitoring Lead II, V1/MCL1 MO Interval 0.16 second(s) QRS Duration 0.09 second(s) [...] grimaces Skin Symptoms Bruising All Extremity Description [place] Skin Temperature Warm Temperature All Extremities Warm Skin Description [place], Normal for ethnicity Skin Integrity Not intact Skin Turgor Non-Elastic Mucous Membrane Color [place] Mucous Membrane Description Moist Nose Anterior Skin [...] Arousable with minimal stimulation Eye Opening Response [place] To voice Best Motor Response [place] Obeys simple commands Best Verbal Response Zeke [...] On and Limits Checked Nail Bed Color [place] Capillary Refill < 2 seconds Heart Sounds [...] grimaces Skin Symptoms Bruising All Extremity Description [place] Skin Temperature Warm Temperature All Extremities Warm Skin Description [place], Normal for ethnicity Skin Integrity Not intact Skin Turgor Elastic Mucous Membrane Color [place] Mucous Membrane Description Moist Nose Anterior Skin [...] simple commands Best Verbal Response Zeke Oriented [place] Coma Score 14 YANICK Yes Left Pupil [...] Mode Order Detail Bed Nurse and Monitor Adjunct Instructor In Economics Details Form Adjunct Instructor In Economics Details Form 07/13/2022 0:40 EDT Notify date/time [...] On and Limits Checked Nail Bed Color [place] Capillary Refill < 2 seconds Heart Sounds ICU S1S2 Heart Rhythm Regular Dorsalis Pedis Pulse, Left 1+ Thready Dorsalis Pedis Pulse, Right 1+ Thready Posttibial Pulse, Left 1+ Thready Posttibial Pulse, Right 1+ [place] Radial Pulse, Left 2+ Normal Radial Pulse, Right 2+ Normal Edema Generalized None Cardiac Rhythm Sinus tachycardia Monitoring Lead II, V1/MCL1 MO Interval 0.13 second(s) QRS Duration 0.08 second(s) [...] grimaces Skin Symptoms Bruising All Extremity Description [place] Skin Temperature Warm Temperature All Extremities Warm Skin Description [place], Normal for ethnicity Skin Integrity Not intact Skin Turgor Non-Elastic Mucous Membrane Color [place] Mucous Membrane Description Moist Nose Anterior Skin [...] Arousable with minimal stimulation Eye Opening Response [place] To voice Best Motor Response [place] Obeys simple commands Best Verbal Response [place] Oriented [place] Coma Score 14 YANICK Yes Left Pupil [...] mL 07/12/2022 22:59 EDT IV Present Present Global Risk Management Director On Yes Patient Dressed In Hospital gown [...] On and Limits Checked Nail Bed Color [place] Capillary Refill < 2 seconds Heart Sounds [...] grimaces Skin Symptoms Bruising All Extremity Description [place] Skin Temperature Warm Temperature All Extremities Warm Skin Description [place], Normal for ethnicity Skin Integrity Not intact Skin Turgor Elastic Mucous Membrane Color [place] Mucous Membrane Description Moist Nose Anterior Skin [...] Arousable with minimal stimulation Eye Opening Response [place] To voice Best Motor Response Zeke Obeys simple commands Best Verbal Response [place] Oriented Zeke Coma Score 14 YANICK Yes [...] Type 0-10 Pain scale Nail Bed Color [place] Capillary Refill < 2 seconds Dorsalis Pedis [...] grimaces Skin Symptoms Bruising All Extremity Description [place] Skin Temperature Warm Temperature All Extremities Warm Skin Description [place], Normal for ethnicity Skin Integrity Not intact Skin Turgor Elastic Mucous Membrane Color [place] Mucous Membrane Description Moist Nose Anterior Skin [...] Response Zeke To voice Best Motor Response [place] Obeys simple commands Best Verbal Response [place] Oriented Zeke Coma Score 14 YANICK Yes [...] Type 0-10 Pain scale Nail Bed Color [place] Capillary Refill < 2 seconds Heart Rhythm [...] On Skin Symptoms Bruising All Extremity Description [place] Skin Temperature Warm Temperature All Extremities Warm Skin Description [place], Normal for ethnicity Skin Integrity Not intact Skin Turgor Elastic Mucous Membrane Color [place] Mucous Membrane Description Moist Nose Anterior Skin [...] Response Zeke To voice Best Motor Response [place] Obeys simple commands Best Verbal Response [place] Oriented [place] Coma Score 14 YANICK Yes Left Pupil [...] Mode Order Detail Bed Nurse and Monitor Adjunct Instructor In Economics Details Form Adjunct Instructor In Economics Details Form 07/12/2022 15:18 EDT SN - [...] Type 0-10 Pain scale Nail Bed Color [place] Capillary Refill < 2 seconds Heart Rhythm Regular Dorsalis Pedis Pulse, Left 1+ Thready Dorsalis Pedis Pulse, Right 1+ [place]ready Posttibial Pulse, Left 1+ Thready Posttibial Pulse, Right 1+ [place] Radial Pulse, Left 2+ Normal Radial Pulse, Right 2+ Normal Edema Generalized None Cardiac Rhythm Bundle branch block Cardiac Rhythm Sinus tachycardia Monitoring Lead II MO Interval 0.13 second(s) QRS Duration 0.12 second(s) [...] On Skin Symptoms Bruising All Extremity Description [place] Skin Temperature Warm Temperature All Extremities Warm Skin Description [place], Normal for ethnicity Skin Integrity Not intact Skin Turgor Elastic Mucous Membrane Color [place] Mucous Membrane Description Moist Nose Anterior Skin [...] Arousable with minimal stimulation Eye Opening Response [place] Spontaneously Best Motor Response Zeke Obeys simple commands Best Verbal Response Zeke Oriented [place] Coma Score 15 YANICK Yes Left Pupil [...] Type 0-10 Pain scale Nail Bed Color [place] Capillary Refill < 2 seconds Heart Rhythm [...] On Skin Symptoms Bruising All Extremity Description [place] Skin Temperature Warm Temperature All Extremities Warm Skin Description [place], Normal for ethnicity Skin Integrity Not intact Skin Turgor Elastic Mucous Membrane Color [place] Mucous Membrane Description Moist Continuous IV Infusions NS @ 50ml/hr Forearm Right 18 gauge Peripheral IV Site Condition: No complications Neurological Language Able to speak clearly Neurological Symptoms Numbness Gait Unable to assess Extremity Movement Equal Swallowing Difficulty None Characteristics of Communication Appropriate Characteristics of Speech Clear Facial Symmetry Symmetric Level of Consciousness Arousable with minimal stimulation Eye Opening Response [place] Spontaneously Best Motor Response Zeke Obeys simple [...] Person #2 We May Share PHI Jocy [phone] Designated Person #2 Relationship Daughter Privacy Restrictions Requested None (Modified) Height 165 cm (Modified) Height in inches 65 inch(es) (Modified) Admission Weight 98.7 kg (Modified) Weight Lbs 217.1 lb (Modified) [place] Body Weight 56.91 kg BSA Admission 2.05 [...] Advanced Directives Yes (Modified) Advance Directive Type [place] Declaration (Living Will) (Modified) Advance Directive Location [...] Verbalizes/Nonverbally indicates understanding (Modified) Preferred Written Language Citizen Of [place] (Modified) Preferred Spoken Language Citizen [place] (Modified) Information Given by Patient (Modified) Patient's [...] Type 0-10 Pain scale Nail Bed Color [place] Capillary Refill < 2 seconds Heart Sounds ICU S1S2 Heart Rhythm Regular Dorsalis Pedis Pulse, Left 1+ Thready Dorsalis Pedis Pulse, Right 1+ [place] Posttibial Pulse, Left 1+ Th[place] Posttibial Pulse, Right 1+ Thready Edema Generalized None Cardiac Rhythm Bundle branch block Cardiac Rhythm Sinus tachycardia Monitoring Lead II MO Interval 0.14 second(s) QRS Duration 0.12 second(s) [...] On Skin Symptoms Bruising All Extremity Description [place] Skin Temperature Warm Temperature All Extremities Warm Skin Description [place], Normal for ethnicity Skin Integrity Not intact Skin Turgor Elastic Mucous Membrane Color [place] Mucous Membrane Description Moist Nose Anterior Skin [...] Type 0-10 Pain scale Nail Bed Color [place] Capillary Refill < 2 seconds Dorsalis Pedis [...] On Skin Symptoms Bruising All Extremity Description [place] Skin Temperature Warm Temperature All Extremities Warm Skin Description [place], Normal for ethnicity Skin Integrity Not intact Skin Turgor Elastic Mucous Membrane Color [place] Mucous Membrane Description Moist Nose Anterior Wound [...] Mode Order Detail Bed Nurse and Monitor Adjunct Instructor In Economics Details Form Adjunct Instructor In Economics Details Form 07/12/2022 8:15 EDT Magnesium Lvl [...] Type 0-10 Pain scale Nail Bed Color [place] Capillary Refill < 2 seconds Heart Sounds ICU S1S2 Heart Rhythm Regular Dorsalis Pedis Pulse, Left 1+ Thready Dorsalis Pedis Pulse, Right 1+ Thready Posttibial Pulse, Left 1+ Thready Posttibial Pulse, Right 1+ Thready Radial Pulse, Left 2+ Normal Radial Pulse, Right 2+ Normal Edema Generalized None Cardiac Rhythm Sinus tachycardia, Bundle branch block Monitoring Lead II, V1/MCL1 MO Interval 0.14 second(s) QRS Duration 0.13 second(s) [...] On Skin Symptoms Bruising All Extremity Description [place] Skin Temperature Warm Temperature All Extremities Warm Skin Description [place], Normal for ethnicity Skin Integrity Not intact Skin Turgor Elastic Mucous Membrane Color [place] Mucous Membrane Description Moist Nose Anterior Skin [...] Opening Response Zeke Spontaneously Best Motor Response [place] Obeys simple commands Best Verbal Response Zeke Oriented [place] Coma Score 15 YANICK Yes Left Pupil [...] On and Limits Checked Nail Bed Color [place] Capillary Refill < 2 seconds Heart Sounds [...] On Skin Symptoms Bruising All Extremity Description [place] Skin Temperature Warm Skin Description [place], Normal for ethnicity Skin Integrity Not intact Skin Turgor Elastic Mucous Membrane Color [place] Mucous Membrane Description Moist Nose Anterior Skin Abnormality Type: Abrasion Wound Status: No complications Neurological Language Able to speak clearly, Follows simple commands Neurological Symptoms Numbness Gait Unable to assess Extremity Movement Equal Swallowing Difficulty None Characteristics of Communication Appropriate Characteristics of Speech Clear Facial Symmetry Symmetric Level of Consciousness Arousable with minimal stimulation Eye Opening Response [place] Spontaneously Best Motor Response [place] Obeys simple commands Best Verbal Response [place] Oriented Zeke Coma Score 15 YANICK Yes [...] On and Limits Checked Nail Bed Color [place] Capillary Refill < 2 seconds Heart Sounds [...] On Skin Symptoms Bruising All Extremity Description [place] Skin Temperature Warm Temperature All Extremities Warm Skin Description [place], Dry Skin Integrity Not intact Skin Turgor Elastic Mucous Membrane Color [place] Mucous Membrane Description Moist Nose Anterior Wound [...] Zeke Obeys simple commands Best Verbal Response [place] Oriented [place] Coma Score 14 YANICK Yes Left Pupil [...] Mode Order Detail Bed Nurse and Monitor Adjunct Instructor In Economics Details Form Adjunct Instructor In Economics Details Form 07/12/2022 0:25 EDT Mechanical VTE Prophylaxis Education Not Done: Task Duplication (Not Done) Sequential Compression Device Form Not Done (Not Done) 07/12/2022 0:08 EDT Primary Pain Intensity 7 HYDROmorphone 0.5 mg mg ondansetron 4 mg mg . Assessment and Plan [place] [employer]hesi[employer] (ASA) physical status classification: [...] ALEJANDRA HERNANDEZ MD on 07/13/2022 07:28 AM [facility] 08-29-2022 Note Date of Service 07/12/2022 [...] and equal. Left tricep 2.5/5, bicep 3.5/5, veneer splicer 4/5, bilateral intrinsics are strong. Negative Pierre's. [...] pain post fall. She was taken to [facility] by EMS found to have cervical spine injury and transferred to [facility] ED. Stat MRI completed and patient was [...] by NITA MADERA on 07/12/2022 05:53 AM [id number] Critical care medicine Consult note Date of [...] C2C3 so that patient was transferred to [place] where she was evaluated per neurosurgery Dr. [...] 17 gram(s)= 15 mL, Oral, qDay, PRN [place] 325- 5 mg oral tablet, 1 tab(s), [...] DARLING EDWARDS MD on 07/12/2022 09:57 AM [id number] Note ORIGINAL EXAMINATION: ONE XRAY VIEW OF [...] 07/12/2022 8:41:07 AM Ordering Provider: TEQUILA YOUNG [id number] Note Date of Service 07/12/2022 Split/shared visit [...] and equal. Left tricep 2.5/5, bicep 3.5/5, veneer splicer 4/5, bilateral intrinsics are strong. Negative Pierre's. [...] pain post fall. She was taken to [facility] by EMS found to have cervical spine injury and transferred to [facility] ED. Stat MRI completed and patient was [...] by NITA MADERA on 07/12/2022 05:53 AM [id number] Note ORIGINAL EXAMINATION: ONE XRAY VIEW OF [...] Date: 07/12/2022 8:41:07 AM Ordering Provider: TEQUILA [facility]08-29-2022 Note ORIGINAL EXAMINATION: ONE XRAY VIEW OF [...] Sign Date: 07/12/2022 7:52:46 AM Ordering Provider: [address]29-2022 Note ORIGINAL EXAMINATION: ONE XRAY VIEW [...] Sign Date: 07/12/2022 7:52:46 AM Ordering Provider: [address]29-2022 Note Date of Service 07/12/2022 Split/shared [...] and equal. Left tricep 2.5/5, bicep 3.5/5, veneer splicer 4/5, bilateral intrinsics are strong. Negative Pierre's. [...] pain post fall. She was taken to [facility] by EMS found to have cervical spine injury and transferred to [facility] ED. Stat MRI completed and patient was [...] by NITA MADERA on 07/12/2022 05:53 AM [id number] Note ORIGINAL EXAMINATION: ONE XRAY VIEW OF [...] 07/11/2022 7:30:42 PM Ordering Provider: NITAFABBY MADERA [id number] Note ORIGINAL EXAMINATION: ONE XRAY VIEW OF [...] 07/11/2022 7:28:52 PM Ordering Provider: NITA MADERA [id number] History and physical note Date of Service 07/11/2022 Chief Complaint Fall, neck pain History of Present Illness Mrs. Ramirez is a 71-year-old female with a past medical history of hypertension, obesity, hyperlipidemia, COPD, severe restrictive airway disease follows with [facility], noninsulin-dependent type 2 diabetes, venous insufficiency, [...] precautions have been maintained. Patient taken to [facility]. She was noted to have a significant cervical spine injury and transferred to [facility] ED for further evaluation and trauma work-up. Dr. Matthews was contacted and stat MRI was completed. This shows significant ligamentous disruption, dislocated and distracted fracture of C6-C7. Shalini brace was placed on the patient in the ED by Michelle [employer], myself and ED nurses. Head andneck were [...] strength noted to be unequal. Bicep/tricep and veneer splicer 3.5/5 on the left, strong on the [...] pain post fall. She was taken to [facility] by EMS found to have cervical spine injury and transferred to [facility] ED. Stat MRI completed and patient was [...] completed regarding recommendations for treatment Consult to rate quoting operator for assistance with medical management and surgical [...] by NITA MADERA on 07/11/2022 06:29 PM [id number] Note ORIGINAL EXAMINATION: ONE XRAY VIEW OF [...] Date: 07/11/2022 7:30:42 PM Ordering Provider: NITA [facility]ADERAB[facility] [id number] Evaluation + Plan noteExtracted from: Title:History and Physical Author:SHIRIN MADERA FOREIGN AGENT-SUSPENDER CUTTER Date:07/11/22 71-year-old female sustained a unwitnessed mechanical fall over her walker landing on left side and face 07/11/2022. Denies LOC. Developed immediate neck pain post fall. She was taken to [facility] by EMS found to have cervical spine injury and transferred to [facility] ED. Stat MRI completed and patient was [...] completed regarding recommendations for treatment Consult to rate quoting operator for assistance with medical management and surgical clearance. Discussed case with ICU nurse practitioner Future Appointments Appointment Date:08/10/2022 11:00:00 AM Scheduled Provider: Location:[facility] Appointment Type:NS Post Op Future Scheduled Tests Laboratory* A1C Hemoglobin 01/06/22 * Lipid Profile 01/06/22 * Complete Metabolic Panel 01/06/22 Radiology* XR Spine Cervical AP/LAT 07/27/22 [facility] 08-28-2022 Note ORIGINAL HISTORY: Fracture COMPARISON: [...] 07/11/2022 1:13:40 PM Ordering Provider: FABIANO MARTIN [id number] Note ORIGINAL HISTORY: Pain, fall COMPARISON: No [...] 07/11/2022 9:14:35 AM Ordering Provider: MARIANA RAMOS [facility]08-28-2022 Note ORIGINAL HISTORY: Neck pain, fall [...] Sign Date: 07/11/2022 9:13:21 AM Ordering Provider: [address]28-2022 Note ORIGINAL HISTORY: Pain COMPARISON: No [...] Sign Date: 07/11/2022 9:03:50 AM Ordering Provider: [address]28-2022 Note ORIGINAL HISTORY: Fall COMPARISON: 04 [...] Date: 07/11/2022 9:01:52 AM Ordering Provider: MARIANA [facility]08-28-2022 Note ORIGINAL HISTORY: Neck pain, fall this [...] Sign Date: 07/11/2022 9:13:21 AM Ordering Provider: [facility]08-28-2022 Note ORIGINAL HISTORY: Pain COMPARISON: [...] Sign Date: 07/11/2022 9:03:50 AM Ordering Provider: [facility]08-28-2022 Note ORIGINAL HISTORY: Pain, fall [...] Sign Date: 07/11/2022 9:14:35 AM Ordering Provider: [facility]08-28-2022 Note ORIGINAL HISTORY: Fall COMPARISON: [...] Sign Date: 07/11/2022 9:01:52 AM Ordering Provider: [facility]02-23-2022 Evaluation + Plan note Future Scheduled Tests Laboratory* A1C Hemoglobin 01/06/22 * Lipid Profile 01/06/22 * Complete Metabolic Panel 01/06/22 [facility] 01-21-2022 Hospital Discharge instructions Patient Education [...] keep having episodes of high blood sugar. [id number] [employer]. [address] [place] [address], [place] [address]. All rights reserved. This information is not [...] in vomit, stools (black or red color) [phone] [employer]. [address] [place] [address]. All rights reserved. This information is not intended as a substitute for professional medical care. Always follow yourhealthcare professional's instructions. Follow Up Care 12/04/2021 08:14:09 With:BARBER CARLISLE APRNENCOM[facility] Address: [phone] When:2-4 days [facility] 11-02-2021 Hospital Discharge instructions Patient Education [...] and fish, and low-fat dairy products. [employer]. [address] [place], [place] [id number]. All rights reserved. This information is not intended as a substitute for professional medical care. Always follow [facility] professional's instructions. 09/15/2021 20:06:55 Medical Screening Exam, [...] back to this facility in person. [employer]. [address] [place] [address]. All rights reserved. This information is not intended as a substitute for professional medical care. Always follow yourhealthcare professional's instructions. Follow Up Care 09/15/2021 18:07:55 With:BARBER CARLISLE Address:Unknown When:Within 1 Day(s) Comments:Follow-up as scheduled with your doctor tomorrow.Continue all routine medications.Return to the ED if symptoms worsen. [facility] SpectraLinearaluation + Plan note Future Appointments Appointment Date:09/16/2021 01:30:00 PM Scheduled Provider:BARBER CARLISLE Location:[facility] Appointment Type:[facility] [employer]raLinearaluation + Plan note Future Appointments Appointment Date:03/22/2022 02:00:00 PM Scheduled Provider:BARBER CARLISLE Location:[facility] Appointment Type:[facility] SpectraLinearaluation + Plan note Future Appointments Appointment Date:07/27/2022 09:30:00 AM Scheduled Provider: Location:[facility] Appointment Type:NS Post Op Future Scheduled Tests Laboratory* A1C Hemoglobin 01/06/22 * Lipid Profile 01/06/22 * Complete Metabolic Panel 01/06/22 [facility] evaluation + Plan note Future Appointments Appointment Date:08/12/2022 08:30:00 AM Scheduled Provider: Location:[facility] Appointment Type:NS Post Op Future Scheduled Tests Laboratory* A1C Hemoglobin 01/06/22 * Lipid Profile 01/06/22 * Complete Metabolic Panel 01/06/22 Radiology* XR Spine Cervical AP/LAT 07/27/22 [facility] evaluation + Plan note Future Appointments Appointment Date:09/09/2022 10:00:00 AM Scheduled Provider: Location:[facility] Appointment Type:NS Post Op Future Scheduled Tests Laboratory* A1C Hemoglobin 01/06/22 * Lipid Profile 01/06/22 * Complete Metabolic Panel 01/06/22 [facility] Evaluation + Plan note Future Appointments Appointment Date:10/05/2022 01:30:00 PM Scheduled Provider:TRACE MATTHEWS MD Location:[facility] Appointment Type:NS Post Op Future Scheduled Tests Laboratory* A1C Hemoglobin 01/06/22 * Lipid Profile 01/06/22 * Complete Metabolic Panel 01/06/22 Radiology* XR Spine Thoracic 2 Views 09/09/22 * XR Spine Cervical AP/LAT/Flex/Ext 09/09/22 [facility] Evaluation + Plan note Future Appointments Appointment Date:10/26/2022 03:00:00 PM Scheduled Provider: Location:[facility] Appointment Type:CT Spine Cervical w/o Contrast Appointment Date:11/04/2022 02:15:00 PM Scheduled Provider:TRACE MATTHEWS MD Location:[facility] Appointment Type:Telephone Future Scheduled Tests Laboratory* A1C Hemoglobin 01/06/22 * Lipid Profile 01/06/22 * Complete Metabolic Panel 01/06/22 Radiology* CT Spine Cervical w/o Contrast 10/26/22 [facility] Evaluation + Plan note Future Appointments Appointment Date:11/04/2022 02:15:00 PM Scheduled Provider:TRACE MATTHEWS MD Location:[facility] Appointment Type:Telephone Future Scheduled Tests Laboratory* A1C Hemoglobin 01/06/22 * Lipid Profile 01/06/22 * Complete Metabolic Panel 01/06/22 [facility] Evaluation + Plan note Future Appointments Appointment Date:08/19/2023 02:30:00 PM Scheduled Provider: Location:[facility] Appointment Type:MRI Pancreas Future Scheduled Tests Radiology* MRI Pancreas 08/19/23 [facility] evaluation noteNo assessment information available [facility] Work Phone: evaluation note* Diagnosis Onset Date Resolution Status Iron deficiency anemia acute Vitamin B12 deficiency acute Thrombocytopenia chronic [facility] Work Phone: evaluation note* Diagnosis Onset Date Resolution Status Hyperglycemia acute Metabolic encephalopathy acu te Acute on chronic respiratory failure with hypoxia and hypercapnia chronic COPD (chronic obstructive pulmonary disease) chronic [facility] Work Phone: Evaluation note* [...] COPD (chronic obstructive pulmonary disease) [facility] Work Phone: Evaluation note* Diagnosis Onset Date Resolution Status Iron deficiency anemia chron ic Thrombocytopenia chronic Iron deficiency anemia chron ic Thrombocytopenia chronic Anemia acute Congestive heart failure (CHF) acute COPD (chronic obstructive pulmonary disease) chronic Lung nodules chronic Metabolic encephalopathy res olved Pneumonia resolved Breast nodule acute Neck mass acute Iron deficiency anemia chron ic Lung nodules chronic Thrombocytopenia [facility] Work Phone: Evaluation note* Diagnosis Onset Date Resolution Status Iron deficiency anemia chron ic Thrombocytopenia chronic Anemia acute Congestive heart failure (CHF) acute COPD (chronic obstructive pulmonary disease) chronic Lung nodules chronic Metabolic encephalopathy res olved Pneumonia resolved Breast nodule acute Neck mass acute Iron deficiency anemia chron ic Lung nodules chronic Thrombocytopenia [facility] Work Phone: Evaluation note* Diagnosis Onset [...] nodules chronic Thrombocytopenia chronic Breast nodule acute [facility] Work Phone: Evaluation note* Diagnosis Onset Date Resolution Status Breast nodule acute Neck mass acute Iron deficiency anemia chron ic Lung nodules chronic Thrombocytopenia chronic Breast nodule acute Breast nodule acute Neck mass acute Iron deficiency anemia chron ic Lung nodules chronic Thrombocytopenia [facility] Work Phone: Evaluation note* Diagnosis Onset Date Resolution Status Breast nodule acute Neck mass acute Iron deficiency anemia chron ic Lung nodules chronic Thrombocytopenia [facility] Work Phone: Evaluation note* Diagnosis Onset Date Resolution Status Hematuria acute Iron deficiency anemia chron ic Lung nodules chronic Thrombocytopenia [facility] Work Phone: Evaluation note* Diagnosis Colovaginal fistula- Primary Colovaginal fistula Acquired thrombocytopenia (CMS/HCC) Secondary thrombocytopenia Encounter for preprocedural cardiovascular examination Dilated cardiomyopathy (CMS/HCC) Other primary cardiomyopathies Dilated cardiomyopathy (CMS/HCC) Other primary cardiomyopathies documented in this encounter [facility] Work Phone: Evaluation note* Diagnosis Diverticulitis- Primary Diverticulitis of colon (without mention of hemorrhage) Colovaginal fistula- Primary Diverticulitis Diverticulitis of colon (without mention of hemorrhage) documented in this encounter [facility] Work Phone: Evaluation note* Diagnosis Preop cardiovascular exam- Primary Pre-operative cardiovascular examination Chronic systolic heart failure (CMS/HCC) Chronic systolic heart failure documented in this encounter [facility] Work Phone: Evaluation note* Diagnosis Encounter for preadmission testing documented in this encounter [facility] Work Phone: Evaluation note* Diagnosis Encounter for preadmission testing documented in this encounter [facility] Work Phone: Hospital course Narrative No data available for this section [facility] Hospital Discharge instructions No data available for this section [facility] Hospital Discharge instructions Additional Instructions Your [...] have a progression or worsening of your symptoms.[facility] Work Phone: Progress note No data available for this section [facility] Summary Purpose Family History No Family History Records Found Sister Name Dates Details Family history of malignant neoplasm of breast(V16.3, Z80.3) Status:Active Relationship Condition Age at Onset Recorded Date/T [place] sister Malignant neoplasm of breast Unknown grandmother Diabetes mellitus Unknown Advance Directives No Advanced Directives Records Found Advance Directive Response Recorded Date/ Time Living Will No November 24 9:00am Power of Pathology Lab Technician No November 24, 2021 9:00am Advance Directive Response Recorded Date/ Time Living Will No November 24 8:00am Power of Pathology Lab Technician No November 24, 2021 8:00am Advance Directive Response Recorded Date/ Time Living Will No April 19, 2023 4 :46pm Power of Pathology Lab Technician No April 19, 2023 4:46pm Advance Directive Response Recorded Date/ Time Living Will No July 14 4:04pm Power of Pathology Lab Technician No July 14 4:04pm Advance Directive Response Recorded Date/ Time Living Will No August 09, 2023 11:01pm Power of Pathology Lab Technician No July 11:01pm Advance Directive Response Recorded Date/ Time Living Will No September 14 10:49pm Power of Pathology Lab Technician No September 14, 2023 10:49pm Latest Code [...] Will No September 14 9:49pm Power of Pathology Lab Technician No September 14, 2023 9:49pm Latest Code [...] Complaint and Reason for Visit Chief Complaint RETIREMENT LABWORK RETIREMENT LAB WORK Chief Complaint RETIREMENT LABWORK RETIREMENT LAB WORK RETIREMENT LABWORK Chief Complaint RETIREMENT LABWORK RETIREMENT LAB WORK RETIREMENT LAB WORK RETIREMENT LABWORK RETIREMENT LABWORK Chief Complaint RETIREMENT LABWORK RETIREMENT LAB WORK RETIREMENT LAB WORK RETIREMENT LABWORK LABWORK RETIREMENT LABWORK 2MO -LABS- NEW PT - PANCYTOPENIA [...] PT - PANCYTOPENIA 2MO -LABS- 2MO -LABS- RETIREMENT LABWORK ACUTE ON CHRONIC HYPOXIC AND HYPERCAPNIC [...] NEW PT - PANCYTOPENI A 2MO -LABS- RETIREMENT LABWORK ACUTE ON CHRONIC HYPOXIC AND HYPERCAPNIC [...] HYPERCAPNIC ACUTE ON CHRONIC HYPOXIC AND HYPERCAPNIC RETIREMENT LABWORK 3MO LABS 2MO -LABS- Reason for Visit Iron deficiency anem ia Thrombocytopenia Iron deficiency anemia Thrombocytopenia Anemia Congestive heart failure (CHF) COPD (chronic obstructive pulmonary disease) Lung nodules Metabolic encephalopathy Pneumonia Breast nodule Neck mass Iron deficiency anemia Lung nodules Thrombocytopenia Chief Complaint 2MO -LABS- RETIREMENT LABWORK ACUTE ON CHRONIC HYPOXIC AND HYPERCAPNIC [...] HYPERCAPNIC ACUTE ON CHRONIC HYPOXIC AND HYPERCAPNIC RETIREMENT LABWORK RETIREMENT LABWORK RETIREMENT LABWORK 3MO LABS 2MO -LABS- NODULE ON NECK, ? CANCER Reason for Visit Iron deficiency anem ia Thrombocytopenia Anemia Congestive heart failure (CHF) COPD (chronic obstructive pulmonary disease) Lung nodules Metabolic encephalopathy Pneumonia Breast nodule Neck mass Iron deficiency anemia Lung nodules Thrombocytopenia Chief Complaint 2MO -LABS- RETIREMENT LABWORK ACUTE ON CHRONIC HYPOXIC AND HYPERCAPNIC [...] HYPERCAPNIC ACUTE ON CHRONIC HYPOXIC AND HYPERCAPNIC RETIREMENT LABWORK RETIREMENT LABWORK RETIREMENT LABWORK 3MO LABS 2MO -LABS- NODULE ON [...] Thrombocytopenia Breast nodule Chief Complaint 2MO -LABS- RETIREMENT LABWORK ACUTE ON CHRONIC HYPOXIC AND HYPERCAPNIC [...] HYPERCAPNIC ACUTE ON CHRONIC HYPOXIC AND HYPERCAPNIC RETIREMENT LABWORK RETIREMENT LABWORK RETIREMENT LABWORK 3MO LABS 2MO -LABS- NODULE ON [...] Thrombocytopenia Breast nodule Chief Complaint 2MO -LABS- RETIREMENT LABWORK ACUTE ON CHRONIC HYPOXIC AND HYPERCAPNIC [...] HYPERCAPNIC ACUTE ON CHRONIC HYPOXIC AND HYPERCAPNIC RETIREMENT LABWORK RETIREMENT LABWORK RETIREMENT LABWORK 3MO LABS 2MO -LABS- NODULE ON NECK, ? CANCER 2WKS NO LABS REVIEW MAMMO/CT RETIREMENT LABWORK L BREAST NODULE L BREAST NODULE [...] CA NCER 2WKS NO LABS REVIEW MAMMO/CT RETIREMENT LABWORK L BREAST NODULE L BREAST NODULE LABWORK abd pain 2MO -LABS- 6WKS LABS REVIEW BIOPSY/PATH RETIREMENT LAB WORK Reason for Visit Breast nodule Neck mass Iron deficiency anemia Lung nodules Thrombocytopenia Breast nodule Breast nodule Neck mass Iron deficiency anemia Lung nodules Thrombocytopenia Chief Complaint NODULE ON NECK, ? [place] NCER 2WKS NO LABS REVIEW MAMMO/CT RETIREMENT LABWORK L BREAST NODULE L BREAST NODULE LABWORK abd pain 2MO -LABS- 6WKS LABS REVIEW BIOPSY/PATH RETIREMENT LAB WORK RETIREMENT LAB WORK ABD PAIN Reason for Visit Breast nodule Neck mass Iron deficiency anemia Lung nodules Thrombocytopenia Breast nodule Breast nodule Neck mass Iron deficiency anemia Lung nodules Thrombocytopenia Chief Complaint LABWORK abd pain 2MO -LABS- 6WKS LABS REVIEW BIOPSY/PATH RETIREMENT LAB WORK RETIREMENT LAB WORK ABD PAIN Reason for Visit Breast nodule Neck mass Iron deficiency anemia Lung nodules Thrombocytopenia Chief Complaint LABWORK abd pain 2MO -LABS- 6WKS LABS REVIEW BIOPSY/PATH RETIREMENT LAB WORK RETIREMENT LAB WORK ABD PAIN dizziness Reason for Visit Breast nodule Neck mass Iron deficiency anemia Lung nodules Thrombocytopenia Chief Complaint 2MO -LABS- 6WKS LABS REVIEW BIOPSY/PATH RETIREMENT LAB WORK RETIREMENT LAB WORK ABD PAIN dizziness RETIREMENT LABWORK Reason for Visit Breast nodule Neck mass Iron deficiency anemia Lung nodules Thrombocytopenia Chief Complaint RETIREMENT LAB WOR K RETIREMENT LAB WORK ABD PAIN dizziness RETIREMENT LABWORK LABWORK Chief Complaint RETIREMENT LAB WOR K RETIREMENT LAB WORK ABD PAIN dizziness RETIREMENT LABWORK LABWORK DISCUSS OPTIONS-NO LABS 2MO -LABS- abd pain Reason for Visit Hematuria Iron deficiency anemia Lung nodules Thrombocytopenia Chief Complaint RETIREMENT LAB WOR K RETIREMENT LAB WORK ABD PAIN dizziness RETIREMENT LABWORK LABWORK DISCUSS OPTIONS-NO LABS 2MO -LABS- RETIREMENT LABWORK abd pain abd pain abd pain Reason for Visit Hematuria Iron deficiency anemia Lung nodules Thrombocytopenia Chief Complaint RETIREMENT LAB WOR K ABD PAIN dizziness RETIREMENT LABWORK LABWORK DISCUSS OPTIONS-NO LABS 2MO -LABS- RETIREMENT LABWORK abd pain abd pain abd pain LEFT BREAST FOLLOW UP FIBROADENOMA Reason for Visit Hematuria Iron deficiency anemia Lung nodules Thrombocytopenia Reason for Referral Specialty Diagnoses / Procedures Referred By Contac t Referred To Contact Diagnoses Encounter for preadmission testing Procedures ECG 12 [place] [address] [place] [address] Referral ID Status Reason Start Date Expiration Date V isits Requested Visits Authorized [id number] Pending Review 10/28/2023 10/27/2024 1 1 Specialty Diagnoses / Procedures Referred By Contac t Referred To Contact Diagnoses Colovaginal fistula Nancy Treviño, FOREIGN AGENT-SUSPENDER CUTTER [address] [facility] Department [place] [id number] Referral ID Status Reason Start Date Expiration Date V isits Requested Visits Authorized [id number] Pending Review 09/28/2023 09/27/2024 1 1 Additional Source Comments INFORMATION SOURCE (unrecogn ized section and content) DATE CREATED AUTHOR 05/09/2018 [employer] DATE CREATED AUTHOR AUTHOR'S ORGANIZ ATION 07/14/2020 [employer] DATE CREATED AUTHOR AUTHOR'S ORGANIZ ATION 12/01/2021 [facility] DATE CREATED AUTHOR AUTHOR'S ORGANIZ ATION 11/06/2022 [employer] [facility] DATE CREATED AUTHOR AUTHOR'S ORGANIZ ATION 09/16/2023 [facility] ([place] DATE CREATED AUTHOR AUTHOR'S ORGANIZ ATION 10/19/2023 [facility] DATE CREATED AUTHOR AUTHOR'S ORGANIZ ATION 11/13/2023 [facility] DATE CREATED AUTHOR AUTHOR'S ORGANIZ ATION 07/25/2024 [facility] DATE CREATED AUTHOR AUTHOR'S ORGANIZ ATION 09/26/2025 [facility] Care Team (unrecognized sect ion and content) Care Team Personnel Name: BARBER CARLISLE Position: P4 Advanced Practice Nurse Member Role: Primary Care Physician Address: Address: [address] [facility] [address] [facility] [place] [address] [place] Name: MARIANA RAMOS MD Position: ED Physician Member Role: Attending Physician Address: Address: [address] [place] [address] Care Team Related Persons Name: JOCY RUIZ Address: Home [address] [place], [place] [id number] [place] Name: JOCY URIZ Address: Home [address] [place] [id number] [place] Name: JOCY RUIZ Address: Home [address] [place] [phone] [place] Name: JOCY RUIZ Address: Home [address] [place] [id number] [place] Name: JOCY RUIZ Address: Home [address] [place] [id number] [place] Name: JOCY RUIZ Address: Home [address] [facility] [place] [place] [id number] [place] Name: JOCY RUIZ Address: Home [address] [place] [phone] [place] Name: JOCY RAMIREZ Care Team Personnel Name: BARBER CARLISLE Position: P4 Advanced Practice Nurse Member Role: Primary Care Physician Address: Address: [address] [facility] [place] [address]- Care Team Related Persons Name: JOCY RUIZ Address: Home [address] [place] [id number] [place] Name: JOCY RUIZ Address: Home [address] [place], [place] [id number] [place] Name: JOCY RUIZ Address: Home [address] [place], [place] [phone] [place] Name: JOCY RUIZ Address: Home [address] [place], [place] [id number] [place] Name: JOCY RUIZ Address: Home [address] [place], [place] [id number] [place] Name: JOCY RUIZ Address: Home [address] [place], [place] [id number] [place] Name: JOCY RUIZ Address: Home [address] [place], [place] [id number] [place] Name: JOCY RAMIREZ Care Team Personnel Name: BARBER CARLISLE Position: P4 Advanced Practice Nurse Med Service: Active Provider Member Role: Primary Care Physician Address: Address: [address] [place], [place] [address] Care Team Related Persons Name: JOCY RUIZ Address: Home [address] [place] [phone] [place] Name: JOCY RUIZ Address: Home [address] [place], [place] [phone] [place] Name: JOCY RUIZ Address: Home [address] [place] [phone] [place] Name: JOCY RUIZ Address: Home [address] [place], [place] [phone] [place] Name: JOCY RUIZ Address: Home [address] [place] [id number] [place] Name: JOCY RUIZ Address: Home [address] [place] [phone] [place] Name: JOCY RUIZ Address: Home [address] [place] [phone] [place] Name: JOCY RAMIREZ Care Team Personnel Name: BARBER CARLISLE Position: P4 Advanced Practice Nurse Med Service: Active Provider Member Role: Primary Care Physician Address: Address: [address] [place], [place] [address] Care Team Related Persons Name: JOCY RUIZ Address: Home [address] [place] [phone] [place] Name: JOCY RUIZ Address: Home [address] [place] [phone] [place] Name: JOCY RUIZ Address: Home [address] [place] [id number] [place] Name: JOCY RUIZ Address: Home [address] [place], [place] [id number] [place] Name: JOCY RUIZ Address: Home [address] [place] [phone] [place] Name: JOCY RUIZ Address: Home [address] [place], [place] [phone] [place] Name: JOCY RUIZ Address: Home [address] [place], [place] [phone] [place] Name: JOCY RAMIREZ Care Team Personnel Name: BARBER CARLISLE Position: P4 Advanced Practice Nurse Med Service: Active Provider Member Role: Primary Care Physician Address: Address: [address] [place] [id number] Care Team Related Persons Name: JOCY RUIZ Address: Home [address] [place] [id number] [place] Name: JOCY RUIZ Address: Home [address] [place] [id number] [place] Name: JOCY RUIZ Address: Home [address] [place] [phone] [place] Name: JOCY RUIZ Address: Home [address] [place] [phone] [place] Name: JOCY RUIZ Address: Home [address] [place] [phone] [place] Name: JOCY RUIZ Address: Home [address] [place] [phone] [place] Name: JOCY RUIZ Address: Home [address] [place] [id number] [place] Name: JOCY RAMIREZ Care Team Personnel Name: BARBER CARLISLE Position: P4 Advanced Practice Nurse Member Role: Primary Care Physician Address: Address: [address] [place], [place] [address] Care Team Related Persons Name: RUIZ, JOCY A Address: Home [address] [place] [phone] [place] Name: JOCY RUIZ Address: Home [address] [place] [phone] [place] Name: JOCY RUIZ Address: Home [address] [place], [place] [phone] [place] Name: JOCY RUIZ Address: Home [address] [place], [place] [phone] [place] Name: JOCY URIZ Address: Home [address] [place], [place] [phone] [place] Name: JOCY RUIZ Address: Home [address] [place], [place] [phone] [place] Name: JOCY RUIZ Address: [address] [place], [place] [phone] [place] Name: JOCY RAMIREZ Care Team Personnel Name: BARBER CARLISLE Position: P4 Advanced Practice Nurse Member Role: Primary Care Physician Address: Address: [address] Care Team Related Persons Name: JOCY RUIZ Address: Home [address] [place] [phone] [place] Name: JOCY RUIZ Address: Home [address] [place], [place] [phone] [place] Name: JOCY RUIZ Address: Home [address] [place], [place] [phone] [place] Name: JOCY RUIZ Address: Home [address] [place] [phone] [place] Name: JOCY RUIZ Address: Home [address] [place] [phone] [place] Name: JOCY RUIZ Address: Home [address] [place], [place] [phone] [place] Name: JOCY RUIZ Address: Home [address] [place] [phone] [place] Name: JOCY RAMIREZ Care Team Personnel Name: BARBER CARLISLE Position: P4 Advanced Practice Nurse Member Role: Primary Care Physician Address: Address: [address] Care Team Related Persons Name: JOCY RUIZ Address: Home [address] [place], [place] [phone] [place] Name: JOCY RUIZ Address: Home [address] [place] [phone] [place] Name: JOCY RUIZ Address: Home [address] [place] [phone] [place] Name: JOCY RUIZ Address: Home [address] [place], [place] [phone] [place] Name: JOCY RUIZ Address: Home [address] [place], [place] [phone] [place] Name: JOCY RUIZ Address: Home [address] [place] [phone] [place] Name: JOCY RUIZ Address: Home [address] [place] [phone] [place] Name: JOCY RAMIREZ Care Team Personnel Name: BARBER CARLISLE APRN-SILVINO Position: P4 Advanced Practice Nurse Member Role: Primary Care Physician Address: Address: [address] [place], [place] [id number] Care Team Related Persons Name: JOCY RUIZ Address: Home [address] [place], [place] [phone] [place] Name: JOCY RUIZ Address: Home [address] [place], [place] [phone] [place] Name: JOCY RUIZ Address: Home [address] [place], [place] [phone] [place] Name: JOCY RUIZ Address: Home [address] [place] [id number] [place] Name: JOCY RUIZ Address: Home [address] [place], [place] [phone] [place] Name: JOCY RUIZ Address: Home [address] [place] [phone] [place] Name: JOCY RUIZ Address: Home [address] [place] [phone] [place] Name: JOCY RAMIREZ Goals (unrecognized section and content) Goals may be documented in a n alternate section Care Teams (unrecognized sec tion and content) Team Status: Active Member Role Status Dates Barber Carlisle [employer], [employer] Primary Care Provider Active Team Status: Inactive Member Role Status Dates Barber Orestes [employer], [employer]-C Primary Care Provider, Referri ng Provider Active Dr. Delfin Jeffries MD Attending Provider Active Team Status: Inactive Member Role Status Dates Barber Orestes [employer], [employer]-C Primary Care Provider Active Stef ELMORE Attending Provider Active Team Status: Active Member Role Status Dates Barber Orestes [employer], [employer]-C Primary Care Provider Active Dr. Delfin Jeffries MD Attending Provider, Referring Pro vider Active Team Status: Active Member Role Status Dates Barber Orestes [employer], [employer] Primary Care Provider Active Jonathan ELMORE MD Attending Provider Active Team Status: Active Member Role Status Dates Barber Carlisle [employer], [employer]-C Primary Care Provider Active Dr. Ellis Tsai MD Emergency Provider Active Dr. Rebecca Resendiz DO Admit Provider, Attending Provide r Active Team Status: Active Member Role Status Dates Barber Carlisle [employer], [employer] Primary Care Provider Active Dr. Ellis Tsai MD Emergency Provider Active Dr. Rebecca Resendiz DO Admit Provider, Att ending Provider, Other Provider Active Dr. Serge Banks MD Other Provider Active Dr. Ajit Mcgill , Other Provider Active Dr. Martín Monique MD Other Provider Active Dr. Krzysztof Pennington MD Other Provider Active Viji Richey [employer], [employer]-C Other Provider Active Team Status: Active Member Role Status Dates Barber Orestes [employer], [employer]-C Primary Care Provider Active Dr. Ellis Tsai MD Emergency Provider Active Dr. Rebecca Resendiz DO Admit Provider, Other Provider Ac tive Dr. Serge Banks MD Other Provider Active Dr. Ajit Mcgill , Other Provider Active Dr. Martín Monique MD Attending Provider, Other Pro vider Active Dr. Krzysztof Pennington MD Other Provider Active Viji Richey [employer], [employer]-C Other Provider Active Dr. Hernando Padron MD Other Provider Active Dr. Thomas Ahumada MD Other Provider Active Team Status: Active Member Role Status Dates Barber Carlisle [employer], [employer]-C Primary Care Provider Active Dr. Miroslava Gonzalez MD Attending Provider Active Team Status: Active Member Role Status Dates Barber Carlisle [employer], [employer]-C Primary Care Provider Active Dr. Ellis Tsai MD Emergency Provider Active Dr. Rebecca Martín , DO Admit Provider, Other Provider Ac tive Dr. Serge Banks MD Other Provider Active Dr. Ajit Mcgill , DO Other Provider Active Dr. Martín Monique MD Other Provider Active Dr. Krzysztof Pennington MD Other Provider Active Viji Richey NP, [employer] Other Provider Active Dr. Hernando Padron MD Attending Provider, Other Provid er Active Dr. Thomas Ahumada MD Other Provider Active Team Status: Active Member Role Status Meche Carlisle NP, [employer] Primary Care Provider Active Dr. Ellis Tsai MD Emergency Provider Active Dr. Rebecca Resendiz , DO Admit Provider, Other Provider Ac tive Dr. Serge Banks MD Other Provider Active Dr. Ajit Mcgill , Other Provider Active Dr. Martín Monique MD Other Provider Active Dr. Krzysztof Pennington MD Other Provider Active Viji Richey NP, [employer] Other Provider Active Dr. Hernando Padron MD Other Provider Active Dr. Thomas Ahumada MD Other Provider Active Dr. Miroslava Gonzalez MD Attending Provider Active Team Status: Active Member Role Status Meche Carlisle [employer], [employer]-C Primary Care Provider Active Dr. Moise Austin MD Attending Provider Active Team Status: Active Member Role Status Meche Carlisle NP, [employer] Primary Care Provider Active Dr. Ellis Tsai MD Emergency Provider Active Dr. Rebecca Resendiz , DO Admit Provider, Other Provider Ac tive Dr. Serge Banks MD Other Provider Active Dr. Ajit Mcgill , Other Provider Active Dr. Martín Monique MD Other Provider Active Dr. Krzysztof Pennington MD Other Provider Active Viji Richey NP, [employer] Other Provider Active Dr. Hernando Padron MD Other Provider Active Dr. Thomas Ahumada MD Other Provider Active Dr. Pratima Jaime MD Other Provider Active Dr. Miroslava Gonzalez MD Attending Provider Active Team Status: Active Member Role Status Meche Carlisle NP, [employer] Primary Care Provider Active Dr. Ellis Tsai MD Emergency Provider Active Dr. Rebecca Resendiz , DO Admit Provider, Other Provider Ac tive Dr. Serge Banks MD Attending Provider, Other Provid er Active Dr. Ajit Mcgill , DO Other Provider Active Dr. Martín Monique MD Other Provider Active Dr. Krzysztof Pennington MD Other Provider Active Viji Richey [employer], [employer]-C Other Provider Active Dr. Hernando Padron MD Other Provider Active Dr. Thomas Ahumada MD Other Provider Active Dr. Pratima Jaime MD Other Provider Active Team Status: Active Member Role Status Meche Carlisle [employer], [employer]-C Primary Care Provider Active Dr. Ellis Tsai MD Emergency Provider Active Dr. Rebecca Resendiz , Admit Provider, Other Provider Ac tive Dr. Serge Banks MD Other Provider Active Dr. Ajit Mcgill DO Other Provider Active Dr. Martín Monique MD Other Provider Active Dr. Krzysztof Pennington MD Other Provider Active Viji Richey [employer], [employer]-C Other Provider Active Dr. Hernando Padron MD Other Provider Active Dr. Thomas Ahumada MD Other Provider Active Dr. Pratima Jaime MD Attending Provider, Other Provid er Active Team Status: Inactive Member Role Status Meche Carlisle [employer], [employer] Primary Care Provider Active Jonathanfausto ELMORE MD Attending Provider Active Team Status: Inactive Member Role Status Meche Carlisle [employer], [employer] Primary Care Provider Active Dr. Ellis Tsai MD Emergency Provider Active Dr. Rebecca Resendiz , Admit Provider, Other Provider Ac tive Dr. Serge Banks MD Other Provider Active Dr. Ajit Mcgill , Other Provider Active Dr. Martín Monique MD Other Provider Active Dr. Krzysztof Pennington MD Other Provider Active Viji Richey NP, [employer] Other Provider Active Dr. Hernando Padron MD Other Provider Active Dr. Thomas Ahumada MD Other Provider Active Dr. Pratima Jaime MD Attending Provider Active Team Status: Active Member Role Status Meche Carlisle [employer], [employer]-C Primary Care Provider Active Dr. Moise Austin MD Attending Provider Active Dr. Rebecca Resendiz , Referring Provider Active Team Status: Active Member Role Status Meche Carlisle [employer], [employer]-C Primary Care Provider Active Dr. Ellis Tsai MD Emergency Provider Active Dr. Rebecca Resendiz , Admit Provider, Other Provider Ac tive Dr. Serge Banks MD Other Provider Active Dr. Ajit Mcgill , Other Provider Active Dr. Martín Monique MD Attending Provider, Other Pro vider Active Dr. Krzysztof Pennington MD Other Provider Active Viji Richey [employer], [employer]-C Other Provider Active Dr. Hernando Padron MD Other Provider Active Dr. Thomas Ahumada MD Other Provider Active Dr. Pratima Jaime MD Referring Provider Active Team Status: Active Member Role Status Meche Carlisle [employer], [employer]-C Primary Care Provider Active Dr. Ellis Tsai MD Emergency Provider Active Dr. Rebecca Resendiz , Admit Provider, Other Provider Ac tive Dr. Serge Banks MD Attending Provider, Other Provid er Active Dr. Ajit Mcgill DO Other Provider Active Dr. Martín Monique MD Other Provider Active Dr. Krzysztof Pennington MD Other Provider Active Viji Richey [employer], [employer]-C Other Provider Active Dr. Hernando Padron MD Other Provider Active Dr. Thomas Ahumada MD Other Provider Active Dr. Pratima Jaime MD Referring Provider, Other Provid er Active Team Status: Inactive Member Role Status Meche Carlisle [employer], [employer]-C Primary Care Provider Active Dr. Delfin Jeffries MD Other Provider Active TORRIE COLLAZO Attending Provider, Referring Provider Active Team Status: Inactive Member Role Status Meche Carlisle [employer], [employer]-C Primary Care Provider, Referri ng Provider Active Dr. Sharmila Jackson MD Attending Provider Active Team Status: Inactive Member Role Status Meche Carlisle [employer], [employer]-C Primary Care Provider Active Dr. Sharmila Jackson [...] Dr. Alecia Navarrete MD Attending Provider Active [employer] Tender Relationship Specialty Start Date End Date Barber Carlisle, FOREIGN AGENT-SUSPENDER CUTTER [address] [place] [address] PCP - General 07/04/20 Team Status: Active [...] Sr. , DO Primary Care Provider Active Warp Bleaching Vat Tender Relationship Specialty Start Date End Date Barber Carlisle FREDY oMrales PCP - General 07/04/20 Warp Bleaching Vat Tender Relationship Specialty Start Date End Date Barber Carlisle FREDY Morales [address] [place] [address] PCP - General Family Medicine 10/27/23 Warp Bleaching Vat Tender Relationship Specialty Start Date End Date Barber Carlisle FREDY Morales [address] [place] [address] PCP - General Family Medicine 10/27/23 Warp Bleaching Vat Tender Relationship Specialty Start Date End Date Orestes Barber FREDY Morales [address] [place] [address] PCP - General Family Medicine 10/27/23 Reason for Visit (unrecogniz ed section and content) Specialty Diagnoses / Procedures Referred By Contac t Referred To Contact Diagnoses Colovaginal fistula Intestinal Abscess Procedures [place] [address] [address] [facility] Department [place] [address] [facility] [place] [address] [address] [place] [address] Referral ID Status Reason Start Date Expiration Date Visits Re quested Visits Authorized [id number] 1 1 Specialty Diagnoses / Procedures Referred By Contac t Referred To Contact Diagnoses Encounter for preadmission testing Procedures ECG 12 [place] [address] [place] [address] Referral ID Status Reason Start Date Expiration Date V isits Requested Visits Authorized [id number] Pending Review 10/28/2023 10/27/2024 1 1 Scheduled [...] RN - Reason: Other)[id number] (Given - Provider: sAhley Orourke RN - Comment: per protocol) metoprolol [...] BE BASED ON THE PRIMARY CLINICAL RECORDS. [employer] provides no warranty or guarantee of the accuracy or completeness of information in this document.
[2025-10-09 08:43] LABS: Hematocrit 25.5 % (37-47); Hemoglobin 7.2 g/dL (12.0-15.0)
== END ==
LOC: OLS.ACH 05:00
PROVIDERS: PCP Internal Medicine; Visit Provider Internal Medicine
DX: D50.9 Iron deficiency anemia, unspecified (principal)
CPT/HCPCS: 36415; 85014; 85018

== ENCOUNTER → 2025-10-16 05:00 | Outpatient (REF) | payer BC, MEDICAID, SELFPAY ==
--- OUTSIDE RECORDS SUMMARY | 2025-10-16 04:48 | XMS RPT_ITS | CCD ---
Author Organization [facility] Care Team Providers Care Clinical Leader Name Role Phone Ellis Martines Unavailable Unavailable PROVIDER, UNKNOWN Unavailable Unavailable Michelle Aguilar Unavailable Unavailab Kandi Zacarias Unavailable Unavailable Barber Carlisle Unavailable Unavailable Pranav Bonds Unavailable Unavailable Update Needed Unavailable Unavailable ORESTES BRICK STACKER-ENTRY LEVEL RECEPTIONISTBARBER Primary Care Physician ORESTES BRICK STACKER-ENTRY LEVEL RECEPTIONIST, BARBER Primary Care Physician ORESTES BRICK STACKER-ENTRY LEVEL RECEPTIONIST, BARBER Primary Care Physician Orestes SPORTS SPECIALIST, SPORTS SPECIALIST-C Barber Primary Care Provider Orestes SPORTS SPECIALIST, SPORTS SPECIALIST-C Barber Referring Provider 1([facility] )[phone] Dr. Delfin Jeffries Attending Provider Orestes SPORTS SPECIALIST, SPORTS SPECIALIST-C Barber Primary Care Provider Orestes SPORTS SPECIALIST, SPORTS SPECIALIST-C Barber Referring Provider 1([facility] )[phone] Dr. Delfin Jeffries Attending Provider Dr. Ellis Tsai Emergency Provider [phone] Dr. Rebecca Resendiz Admit Provider Dr. Rebecca Resendiz Attending Provider [phone] Rebecca Resendiz Other Provider Dr. Serge Banks Other Provider Dr. Ajit Mcgill Other Provider Dr. Martín Monique Other Provider 1([facility])[phone] Krzysztof Pennington Other Provider Unavailab rambo Richey SPORTS SPECIALIST, SPORTS SPECIALIST-C Viji Other Provider Dr. Miroslava Gonzalez Attending Provider Dr. Martín Monique Attending Provider Dr. Hernando Padron Other Provider Unavailable Dr. Thomas Ahumada Other Provider Unavaila Dr. Moise Jo Attending Provider Dr. Hernando Padron Attending Provider Unavailable Dr. Pratima Jaime Attending Provider Dr. Pratima Jaime Other Provider Dr. Serge Banks Attending Provider Dr. Rebecca Resendiz Referring Provider Orestes SPORTS SPECIALIST, SPORTS SPECIALIST-C [place] Primary Care Provider Orestes SPORTS SPECIALIST, SPORTS SPECIALIST-C Barber Referring Provider [phone] Dr. Delfin Jeffries Attending Provider Dr. Pratima Jaime Referring Provider Dr. Sharmila Jackson Attending Provider Orestes SPORTS SPECIALIST, SPORTS SPECIALIST-C [place] Primary Care Provider [phone] Orestes SPORTS SPECIALIST, SPORTS SPECIALIST-C Barber Referring Provider [phone] Dr. Delfin Jeffries Attending Provider Gilma ELMORE MD Jonathan Primary Care Provider Unava ilable Gilma ELMORE MD Jonathan Referring Provider Unavaila Dr. Delfin Hutchins Attending Provider Dr. Jonathan Dillard Sr. Primary Care Provider Dr. Jonathan Dillard Sr. Referring Provider Dr. Delfin Jeffries Attending Provider SOLITARIO STUBBS, DR CAMPOS Attending Unavailabl e LORETHAN BRICK STACKER-ENTRY LEVEL RECEPTIONIST, [facility] Unavail renata JEREZ MD, DR CAMPOS Attending Unavailabl e LORETHAN BRICK STACKER-ENTRY LEVEL RECEPTIONIST, [facility] Unavail renata JEREZ MD, DR CAMPOS Attending Unavailabl e LORETHAN BRICK STACKER-ENTRY LEVEL RECEPTIONIST, BARBER Primary Care Unavail able FLIGHT BRICK STACKER-ENTRY LEVEL RECEPTIONIST, RENETTA Attending Unavail able LORSON BRICK STACKER-ENTRY LEVEL RECEPTIONIST, [facility] Unavail able CRISSY STUBBS, DR OSEI PACHECO Attending Unav ailable LORSON BRICK STACKER-ENTRY LEVEL RECEPTIONIST, [facility] Care Unavail able FLIGHT BRICK STACKER-ENTRY LEVEL RECEPTIONIST, RENETTA Attending Unavail able LORSON BRICK STACKER-ENTRY LEVEL RECEPTIONIST, [facility] Care Unavail able BYRON STUBBS, TRACE Sprague Attending Unavailable LORSON BRICK STACKER-ENTRY LEVEL RECEPTIONIST, [facility] Care Unavail able Lorson BRICK STACKER-ENTRY LEVEL RECEPTIONIST, [facility] Primary Care Pr ovider Deperro Sr., Dr. Castillo Primary Care Provider [phone] Gilma Sr., Dr. Castillo Referring Provider Dr. Delfin Jeffries Attending Provider Dr. Calvin Hester Emergency Provider Dr. Lucia Jurado Attending Provider [phone] Dr. Calvin Hester Referring Provider Dr. Susy Delarosa Attending Provider VARSHA SOTELO Attending Unavail able ORESTES, [facility] Unavaila ble Lorson BRICK STACKER-ENTRY LEVEL RECEPTIONIST, [facility] Pr ovider [place] BRICK STACKER-ENTRY LEVEL RECEPTIONIST, [facility] Pr ovider ORESTES [facility] Unavaila ble DELFIN MELARA Admitting Unavailable VARSHA SOTELO Attending Unavail able VARSHA SOTELO Admitting Unavail able VARSHA SOTELO Attending Unavail able ORESTES, [facility] Unavaila ble LORSON, [facility] Unavaila ble LORSON, [facility] Unavaila ble ELIDA VILLAREAL Attending Unavailable LORSON, [facility] Care Unavaila ble LORSON, [facility] Care Unavaila ble RITU HARRELL Referring Unavailable LORSON, [facility] Unavaila ble Deperro OLS, Jonathan Attending Unavailable [...] sources) cyclobenzaprine; Translations: [cyclobenzaprine] Drug Allergy 3 [facility] (20 sources) tiZANidine; Translations: [tizanidine] Drug Allergy 3 [facility] (6 sources) Acetaminophen / oxyCODONE; Translations: [OXYCODONE-ACETAMIN OPHEN] Drug Allergy 6 Palpitations [facility] 3 Repository (1 source) cyclobenzaprine Drug Allergy 5 [facility] Repository (1 source) tiZANidine Drug Allergy 5 [facility] Repository Medications Current Medications Medication Drug Class(es) [...] 19, 2023 12:00am take 2 tablets by va ut once daily at bedtime acetaminophen (Tylenol) [...] preference, # 1 EA, 0 Refill(s), Pharmacy: [facility] 166, cm, [...] # 60 cap(s), 11 Refill(s), Pharmacy: [facility], 166, cm, 09/09/20 11:16:00 EDT, Height, [...] diabetes, # 1 EA, 0 Refill(s), Pharmacy: [facility], 165, cm, 01/16/21 13:33:00 EST, Height, 94.9, kg, 09/16/21 13:29:00 EDT, Dosing Weight Start Date: 09/28/21 Status: Ordered Start: 09-23-2021 DME MISCellane ous See Instructions, True Plus Lancets check blood sugar once daily. #1 box for 90 day supply x 0 refills Dx: diabetes, # 1 EA, 3 Refill(s), Pharmacy: [facility], Diabetes, 165, cm, 01/16/21 13:33:00 EST, Height, 94.9, kg, 09/16/21... Start Date: 09/23/21 Status: Ordered Start: 04-30-2021 DME MISCellane ous See Instructions, True Plus Lancets check blood sugar once daily. #1 box for 90 day supply x 0 refills Dx: diabetes, # 1 EA, 0 Refill(s), Pharmacy: [facility], Diabetes, 165, cm, 01/16/21 13:33:00 EST, Height, 96.36, kg, ... Start Date: 04/30/21 Status: Ordered Start: 04-30-2021 DME MISCellane ous See Instructions, Alcohol Pads Use as directed Dispense 90 day supply x 0 refills DX: diabetes, # 1 EA, 0 Refill(s), Pharmacy: [facility], 165, cm, 01/16/21 [...] Ordered docusate sodium 50 mg / sennosides, care home 8.6 mg oral tablet (20 sources) Start: [...] at 2000 Indications: venous thrombosis estrogens, conjugated (care home) 0.625 mg/ml vaginal cream (8 sources) Estrogen [...] # 16 gram(s), 11 Refill(s), [facility] [address] [facility], cm, 09/09/20 11:16:00 EDT, Height, kg, 09/09/20 11:16:00 EDT, Dosing Weight Start Date: 10/28/20 Status: Ordered folic acid 1 mg oral tablet (20 sources) Start: 11-11-2022 take 1 mg by mouth once daily Folic Acid Active 1 MG PO DAILY November 11, 2022 12:00am Freestyle [place] 14 day sensor (1 source) Start: 09-16-2021 Freestyle Read er 14 day sensor See Instructions, 1 month supply, # 2 EA, 0 Refill(s), Pharmacy: [facility], 165, cm, 01/16/21 [...] qDay, # 30 tab(s), 3 Refill(s), Pharmacy: [facility], Diarrhea Diabetes mellitus type [...] qDay, # 90 tab(s), 3 Refill(s), Pharmacy: [facility], 165vira, 05/04/22 10:05:00 EDT, [...] qDay, # 90 tab(s), 3 Refill(s), Pharmacy: [facility], vira Covarrubias, 01/16/21 13:33:00 EST, Height, kg, 04/06/21 13:21:00 EDT, Dosing Weight Start Date: 04/22/21 Status: Ordered Start: 06-11-2013 take 1 tablet by [facility] every twenty-four hours Metoprolol Succinate ER 50 [...] qDay, # 90 tab(s), 3 Refill(s), Pharmacy: [facility], 165, cm, 05/04/22 10:05:00 [...] qDay, # 90 tab(s), 3 Refill(s), Pharmacy: [facility], 165, cm, 01/16/21 13:33:00 EST, Height, kg, 04/06/21 13:21:00 EDT, Dosing Weight Start Date: 04/22/21 Status: Ordered nitroglycerin 0.4 mg sublingual tablet (3 sources) Start: 04-22-2021 nitroglycerin 0.4 mg sublingual tablet See Instructions, DISSOLVE 1 TABLET UNDER THE TONGUE NEEDED FOR CHEST PAIN EVERY 5 MINUTES UP TO 3 TIMES. IF NO RELIEF CALL 911., # 25 tab(s), 0 Refill(s), Pharmacy: [facility], 165, cm, 01/16/21 13:33:00 EST, Height, kg, ... Start Date: 04/22/21 Status: Ordered nystatin 100,000 units/g topical cream (1 source) Start: 09-16-2021 End: 12-09-2021 nystatin 100,000 units/g topical cream Apply 1 marcy, Topical, BID, X 14 day(s), # 30 gram(s), 5 Refill(s), Pharmacy: [facility], Cream, 165, cm, [...] Ordered Start: 08-09-2023 take 1 tablet by yoladna th at bedtime Cyanocobalamin (Vitamin B-12) (B-12 Dots) 500 mcg tablet Active 500 MCG PO AT BEDTIME August 08, 2023 11:00pm Start: 08-09-2023 take 2 tablets by [facility] once daily Cyanocobalamin (Vitamin B-12) [...] 2X/week, # 42.5 gram(s), 11 Refill(s), [facility], 165, cm, 01/06/22 9:22:00 [...] once daily. For 7 days ending 09/20/23. (Melodeo Ultimate Jie Probiotic 15 BILLION per SNF list) 0 09/27/2023 10/31/2023 Discontinued (Discontinued by another clinician) Start: 09-27-2023 take 1 capsule by [facility] once daily L. acidophilus-L. rhamnosus (Probiotic) 15 billion cell capsule Indications: Dilated cardiomyopathy (CMS/HCC) Take 1 capsule by mouth once daily. For 7 days ending 09/20/23. (Melodeo Ultimate Jie Probiotic 15 BILLION per SNF [...] Daily, # 90 tab(s), 3 Refill(s), Pharmacy: [facility], 165, cm, 01/16/21 [...] Date: 07/20/22 Status: Ordered polyethylene glycol 3350 93442 mg powder for oral solution (20 sources) [...] Date: 07/20/22 Status: Ordered polyethylene glycol 3350 689375 mg / potassium chloride 2970 mg / sodium bicarbonate 6740 mg / sodium chloride 5860 mg / sodium sulfate 69105 mg powder for oral solution (1 source) [...] Oncology Visit Reporton 09-14 Oncology Visit Report [facility] [address] [place] [id number] OFFICE VISIT Date of Service: 09/26/25 0934 MR#: [id number] Acct: [id number] Name: POLI RAMIREZ Rep #: [id number] : 1950 From: Delfin Jeffries MD Age/Sex: 74/F Location: [facility] Status: Signed HPI Subjective Date of [...] do Oral Iron supplements. Was seen in [facility], CT chest on 02/18/2023 showed L breast nodule, multiple small lung nodules. CT neck done on 03/18/2023 showed post operative changes. Got iron infusion at OR. Comes for follow up, found to have Anemia and referred for follow up. Has Folley's Cath in place. [facility] Medical History Colitis On mechanically assisted ventilation [...] Breast cancer Grandmother Diabetes Social History housing: senior care Smoking Status: Former smoker alcohol intake: never [...] bisacodyl 10 mg rectal suppository 10 mg [place] DAILY PRN constipation 11/11/22 09/26/25 History acetaminophen [...] pain 09/26 (more content not included)... Normal [facility] HH, Hemoglobin AND Hematocri ton 09-25-2025 Hematocrit (Bld) [Volume fraction] 24.6 % Low 37-47 [facility] Comment on above: Order Comment: 310-2 Performed By: #### L 100.0600 #### [facility] [address] [place], [address] Hemoglobin (Bld) [Mass/Vol] 7.3 g/dL Low 12.0-15.0 [facility] Comment on above: Order Comment: 310-2 Performed By: #### L 100.0600 #### [facility] [address] [place], [address] CBC-Complete Blood Cnt No Di ffon 09-18-2025 Erythrocyte distribution width (RBC) [Ratio] 14.2 % Normal 11.6-14.6 [facility] Comment on above: Order Comment: 310.2 Performed By: #### L 500.4050, L100.0500 #### [facility] [address] [place], [address] Hematocrit (Bld) [Volume fraction] 24.5 % Low 37-47 [facility] Comment on above: Order Comment: 310.2 Performed By: #### L 500.4050, L100.0500 #### [facility] [address] [place], [address] Hemoglobin (Bld) [Mass/Vol] 7.3 g/dL Low 12.0-15.0 [facility] Comment on above: Order Comment: 310.2 Performed By: #### L 500.4050, L100.0500 #### [facility] [address] [place], [address] MCH (RBC) [Entitic mass] 28.0 pg Normal 27.0-32.0 [facility] Comment on above: Order Comment: 310.2 Performed By: #### L 500.4050, L100.0500 #### [facility] [address] [place], [address] MCHC (RBC) [Mass/Vol] 29.8 g/dL Low 32-36 [facility] Comment on above: Order Comment: 310.2 Performed By: #### L 500.4050, L100.0500 #### [facility] [address] [place], [address] MCV (RBC) [Entitic vol] 93.9 fL Normal 81-99 [facility] Comment on above: Order Comment: 310.2 Performed By: #### L 500.4050, L100.0500 #### [facility] [address] [place], [address] Platelet mean volume (Bld) [Entitic vol] 9.5 fL Normal 6.2-12.0 [facility] Comment on above: Order Comment: 310.2 Performed By: #### L 500.4050, L100.0500 #### [facility] [address] [place], [address] Platelets (Bld) [#/Vol] 83 10*3/uL Low 150-450 [facility] Comment on above: Order Comment: 310.2 Performed By: #### L 500.4050, L100.0500 #### [facility] [address] [place], [address] RBC (Bld) [#/Vol] 2.61 10*6/uL Low 4.2-5.4 [facility] Comment on above: Order Comment: 310.2 Performed By: #### L 500.4050, L100.0500 #### [facility] [address] [place], [address] RDW SD 47.9 fl High 35.1-43.9 [facility] Comment on above: Order Comment: 310.2 Performed By: #### L 500.4050, L100.0500 #### [facility] [address] [place], [address] WBC (Bld) [#/Vol] 4.3 10*3/uL Low 4.4-11.0 [facility] Comment on above: Order Comment: 310.2 Performed By: #### L 500.4050, L100.0500 #### [facility] [address] [place], [address] Differential Commenton 09-18 SMEAR COMMENT SCANNED Normal [facility] Comment on above: Order Comment: 310.2 Performed By: #### L 500.4050, L100.0500 #### [facility] [address] [place], [address] HH, Hemoglobin AND Hematocri ton 09-11-2025 Hematocrit (Bld) [Volume fraction] 28.5 % Low 37-47 [facility] Comment on above: Order Comment: 310.2 Performed By: #### L 500.4050, L100.0500 #### [facility] [address] [place], [address] Hemoglobin (Bld) [Mass/Vol] 8.4 g/dL Low 12.0-15.0 [facility] Comment on above: Order Comment: 310.2 Performed By: #### L 500.4050, L100.0500 #### [facility] [address] [place], [address] Basic Metabolic Profile (BMP )on 09-10-2025 BUN/CRE 15.9 RATIO Normal 10-20 [facility] Comment on above: Performed By: #### L 100.0500, L500.2500, BTS #### [facility] [address] [place], [address] Calcium [Mass/Vol] 8.5 mg/dL Normal 7.6-11.0 [facility] Comment on above: Performed By: #### L 100.0500, L500.2500, BTS #### [facility] [address] [place], [address] Chloride [Moles/Vol] 101 mmol/L Normal 98-108 [facility] Comment on above: Performed By: #### L 100.0500, L500.2500, BTS #### [facility] [address] [place], [address] CO2 [Moles/Vol] 34.5 mmol/L High 21.0-32.0 [facility] Comment on above: Performed By: #### L 100.0500, L500.2500, BTS #### [facility] [address] [place], [address] Creatinine [Mass/Vol] 0.82 mg/dL Normal 0.70-1.20 [facility] Comment on above: Performed By: #### L 100.0500, L500.2500, BTS #### [facility] [address] [place], [address] ECRCL 62.66 ml/min Normal 50-250 [facility] Comment on above: Performed By: #### L 100.0500, L500.2500, BTS #### [facility] [address] [place], [address] GAP 9 Normal 5-15 [facility] Comment on above: Performed By: #### L 100.0500, L500.2500, BTS #### [facility] [address] [place], [address] GFR/1.73 sq M.predicted among non-blacks MDRD (S/P/Bld) [Vol rate/Area] 74 mL/min/{1.73_m2} Normal >60 [facility] Comment on above: Result Comment: mL/m in/1.73m2 CKD-EPI Creatinine Equation (2020) Performed By: #### L 100.0500, L500.2500, BTS #### [facility] [address] [place], [address] Glucose [Mass/Vol] 182 mg/dL High 70-99 [facility] Comment on above: Performed By: #### L 100.0500, L500.2500, BTS #### [facility] [address] [place], [address] Potassium [Moles/Vol] 4.3 mmol/L Normal 3.3-5.1 [facility] Comment on above: Result Comment: Hemo lysis present, Results??could be affected. ?? Performed By: #### L 100.0500, L500.2500, BTS #### [facility] [address] [place], [address] Sodium [Moles/Vol] 145 mmol/L Normal 133-145 [facility] Comment on above: Performed By: #### L 100.0500, L500.2500, BTS #### [facility] [address] [place], [address] Urea nitrogen [Mass/Vol] 13 mg/dL Normal 4-19 [facility] Comment on above: Performed By: #### L 100.0500, L500.2500, BTS #### [facility] [address] [place], [address] CBC-Complete Blood Cnt No Di ffon 09-10-2025 Erythrocyte distribution width (RBC) [Ratio] 14.3 % Normal 11.6-14.6 [facility] Comment on above: Performed By: #### L 100.0500, L500.2500, BTS #### [facility] [address] [place], [address] Hematocrit (Bld) [Volume fraction] 26.5 % Low 37-47 [facility] Comment on above: Performed By: #### L 100.0500, L500.2500, BTS #### [facility] [address] [place], [address] Hemoglobin (Bld) [Mass/Vol] 7.9 g/dL Low 12.0-15.0 [facility] Comment on above: Performed By: #### L 100.0500, L500.2500, BTS #### [facility] [address] [place], [address] MCH (RBC) [Entitic mass] 27.8 pg Normal 27.0-32.0 [facility] Comment on above: Performed By: #### L 100.0500, L500.2500, BTS #### [facility] [address] [place], [address] MCHC (RBC) [Mass/Vol] 29.8 g/dL Low 32-36 [facility] Comment on above: Performed By: #### L 100.0500, L500.2500, BTS #### [facility] [address] [place], [address] MCV (RBC) [Entitic vol] 93.3 fL Normal 81-99 [facility] Comment on above: Performed By: #### L 100.0500, L500.2500, BTS #### [facility] [address] [place], [address] Platelet mean volume (Bld) [Entitic vol] 10.7 fL Normal 6.2-12.0 [facility] Comment on above: Performed By: #### L 100.0500, L500.2500, BTS #### [facility] [address] [place], [address] Platelets (Bld) [#/Vol] 111 10*3/uL Low 150-450 [facility] Comment on above: Performed By: #### L 100.0500, L500.2500, BTS #### [facility] [address] [place], [address] RBC (Bld) [#/Vol] 2.84 10*6/uL Low 4.2-5.4 [facility] Comment on above: Performed By: #### L 100.0500, L500.2500, BTS #### [facility] [address] [place], [address] RDW SD 48.1 fl High 35.1-43.9 [facility] Comment on above: Performed By: #### L 100.0500, L500.2500, BTS #### [facility] [address] [place], [address] WBC (Bld) [#/Vol] 5.1 10*3/uL Normal 4.4-11.0 [facility] Comment on above: Performed By: #### L 100.0500, L500.2500, BTS #### [facility] [address] [place], [address] Emergency Department Summary on 09-10-2025 Emergency Department Summary [facility] Medical Records Department [address] [place] [address] Emergency Department Summary 09/10/25 MR#: [id number] Acct: [id number] Name: POLI RAMIREZ Rep #: [id number] : 1950 74 From: Royce Vigil MD [...] Symptoms: Patient denies orthostatic symptoms or dyspnea, [place] exertion, chest bigg Narrative Narrative: Patient is [...] Prior similar symptoms: Yes Recent [facility] Medical History Colitis On mechanically assisted ventilation [...] bisacodyl 10 mg rectal suppository 10 mg [facility] DAILY PRN constipation 11/11/22 Unknown History cranberry [...] constipation Unkno (more content not included)... Normal [facility] Stool Occult Blood iFOBon STOB Positive Normal [facility] Comment on above: Performed By: #### M 100.7900 #### [facility] [address] [place], [address] Type AND Screenon 09-10-2025 Ab SCREEN GEL Negative Normal [facility] Comment on above: Order Comment: HGI Performed By: #### L 100.0500, L500.2500, BTS #### [facility] [address] [place], [address] HH, Hemoglobin AND Hematocri ton 09-09-2025 Hematocrit (Bld) [Volume fraction] 24.4 % Low 37-47 [facility] Comment on above: Order Comment: 310.2 Performed By: #### L 500.4050, L100.0500 #### [facility] [address] [place], [address] Hemoglobin (Bld) [Mass/Vol] 7.0 g/dL Low 12.0-15.0 [facility] Comment on above: Order Comment: 310.2 Performed By: #### L 500.4050, L100.0500 #### [facility] [address], [address] Ferritinon 09-06-2025 Ferritin [Mass/Vol] 52 ng/mL Normal 22-378 [facility] Comment on above: Order Comment: 310.2 Performed By: #### L 500.4050, L100.0500 #### [facility] [address] [place], [address] Iron+Iron Binding Capacityon 09-06-2025 TIBC 182 ug/dL Low 250-450 [facility] Comment on above: Order Comment: 310.2 Performed By: #### L 500.4050, L100.0500 #### [facility] [address], [address] Vitamin B12on 09-06-2025 Cobalamin (Vitamin B12) [Mass/Vol] 195 pg/mL Normal 180-914 [facility] Comment on above: Order Comment: 310.2 Performed By: #### L 500.4050, L100.0500 #### [facility] [address], [address] CBC-Complete Blood Cnt No Di ffon 09-04-2025 Platelets (Bld) [#/Vol] 91 10*3/uL Low 150-450 [facility] Comment on above: Order Comment: 310.2 Performed By: #### L 100.0500, L500.4050, L501.9985 #### [facility] [address] [place], [address] Comprehensive Metabolic Prof ilon 09-04-2025 Albumin [Mass/Vol] 3.4 g/dL Normal 3.4-4.8 [facility] Comment on above: Order Comment: 310.2 Performed By: #### L 500.4050, L100.0500 #### [facility] [address] [place], [address] Albumin/Globulin [Mass ratio] 1.2 {ratio} Normal 0.9-2.4 [facility] Comment on above: Order Comment: 310.2 Performed By: #### L 500.4050, L100.0500 #### [facility] [address] [place], [address] ALK PHOS 61 U/L Normal 35-104 [facility] Comment on above: Order Comment: 310.2 Performed By: #### L 500.4050, L100.0500 #### [facility] [address] [place], [address] ALT [Catalytic activity/Vol] U/L Normal <=34 [facility] Comment on above: Order Comment: 310.2 Performed By: #### L 500.4050, L100.0500 #### [facility] [address] [place], [address] AST [Catalytic activity/Vol] 14 U/L Normal <=31 [facility] Comment on above: Order Comment: 310.2 Performed By: #### L 500.4050, L100.0500 #### [facility] [address] [place], [address] Bilirubin [Mass/Vol] 0.22 mg/dL Normal 0.00-1.30 [facility] Comment on above: Order Comment: 310.2 Performed By: #### L 500.4050, L100.0500 #### [facility] [address] [place], [address] BUN/CRE 29.8 RATIO High 10-20 [facility] Comment on above: Order Comment: 310.2 Performed By: #### L 500.4050, L100.0500 #### [facility] [address] [place], [address] Calcium [Mass/Vol] 8.4 mg/dL Normal 7.6-11.0 [facility] Comment on above: Order Comment: 310.2 Performed By: #### L 500.4050, L100.0500 #### [facility] [address] [place], [address] Chloride [Moles/Vol] 104 mmol/L Normal 98-108 [facility] Comment on above: Order Comment: 310.2 Performed By: #### L 500.4050, L100.0500 #### [facility] [address] [place], [address] CO2 [Moles/Vol] 35.7 mmol/L High 21.0-32.0 [facility] Comment on above: Order Comment: 310.2 Performed By: #### L 500.4050, L100.0500 #### [facility] [address] [place], [address] Creatinine [Mass/Vol] 0.53 mg/dL Low 0.70-1.20 [facility] Comment on above: Order Comment: 310.2 Performed By: #### L 500.4050, L100.0500 #### [facility] [address] [place], [address] GAP 7 Normal 5-15 [facility] Comment on above: Order Comment: 310.2 Performed By: #### L 500.4050, L100.0500 #### [facility] [address] [place], [address] GFR/1.73 sq M.predicted among non-blacks MDRD (S/P/Bld) [Vol rate/Area] 96 mL/min/{1.73_m2} Normal >60 [facility] Comment on above: Order Comment: 310.2 Result Comment: mL/m in/1.73m2 CKD-EPI Creatinine Equation (2020) Performed By: #### L 500.4050, L100.0500 #### [facility] [address] [place], [address] Globulin (S) [Mass/Vol] 2.7 g/dL Normal 2.2-4.2 [facility] Comment on above: Order Comment: 310.2 Performed By: #### L 500.4050, L100.0500 #### [facility] [address] [place], [address] Glucose [Mass/Vol] 118 mg/dL High 70-99 [facility] Comment on above: Order Comment: 310.2 Performed By: #### L 500.4050, L100.0500 #### [facility] [address] [place], [address] Potassium [Moles/Vol] 3.8 mmol/L Normal 3.3-5.1 [facility] Comment on above: Order Comment: 310.2 Performed By: #### L 500.4050, L100.0500 #### [facility] [address] [place], [address] Sodium [Moles/Vol] 146 mmol/L High 133-145 [facility] Comment on above: Order Comment: 310.2 Performed By: #### L 500.4050, L100.0500 #### [facility] [address] [place], [address] T PROT 6.1 g/dL Normal 5.9-8.4 [facility] Comment on above: Order Comment: 310.2 Performed By: #### L 500.4050, L100.0500 #### [facility] [address] [place], [address] Urea nitrogen [Mass/Vol] 16 mg/dL Normal 4-19 [facility] Comment on above: Order Comment: 310.2 Performed By: #### L 500.4050, L100.0500 #### [facility] [address] [place], [address] Hemoglobin A1con 09-04-2025 HbA1c (Bld) [Mass fraction] % Normal <=5.6 [facility] Comment on above: Order Comment: 310.2 Result Comment: Norm al < 5.7 % Prediabetic 5.7 - 6.4 % Diabetic >or= 6.5 % Please note range changes. Performed By: #### L 500.4050, L100.0500 #### [facility] [address] [place], [address] CBC-Complete Blood Cnt No Di ffon 09-03-2025 HCT Normal 37-47 [facility] Comment on above: Order Comment: 310.2 Result Comment: KELLY CHAVEZ SUSY @610. TRY 09/04/25 Performed By: #### L 500.4050, L100.0500 #### [facility] [address] [place], [address] HGB Normal 12.0-15.0 [facility] Comment on above: Order Comment: 310.2 Result Comment: KELLY CHAVEZ SUSY @610. TRY 09/04/25 Performed By: #### L 500.4050, L100.0500 #### [facility] [address] [place], [address] MCH Normal 27.0-32.0 [facility] Comment on above: Order Comment: 310.2 Result Comment: KELLY CHAVEZ SUSY @610. TRY 09/04/25 Performed By: #### L 500.4050, L100.0500 #### [facility] [address] [place], [address] MCHC Normal 32-36 [facility] Comment on above: Order Comment: 310.2 Result Comment: KELLY CHAVEZ SUSY @610. TRY 09/04/25 Performed By: #### L 500.4050, L100.0500 #### [facility] [address] [place], [address] MCV Normal 81-99 [facility] Comment on above: Order Comment: 310.2 Result Comment: KELLY JAIN @610. TRY 09/04/25 Performed By: #### L 500.4050, L100.0500 #### [facility] [address] [place], [address] PLT Normal 150-450 [facility] Comment on above: Order Comment: 310.2 Result Comment: KELLY JAIN @610. TRY 09/04/25 Performed By: #### L 500.4050, L100.0500 #### [facility] [address] [place], [address] RBC Normal 4.2-5.4 [facility] Comment on above: Order Comment: 310.2 Result Comment: KELLY JAIN @610. TRY 09/04/25 Performed By: #### L 500.4050, L100.0500 #### [facility] [address] [place], [address] RDW CV Normal 11.6-14.6 [facility] Comment on above: Order Comment: 310.2 Result Comment: KELLY JAIN @610. TRY 09/04/25 Performed By: #### L 500.4050, L100.0500 #### [facility] [address] [place], [address] RDW SD Normal 35.1-43.9 [facility] Comment on above: Order Comment: 310.2 Result Comment: KELLY JAIN @610. TRY 09/04/25 Performed By: #### L 500.4050, L100.0500 #### [facility] [address] [place], [address] WBC Normal 4.4-11.0 [facility] Comment on above: Order Comment: 310.2 Result Comment: KELLY JAIN @610. TRY 09/04/25 Performed By: #### L 500.4050, L100.0500 #### [facility] [address] [place], [address] Comprehensive Metabolic Prof iljose d 09-03-2025 ALB Normal 3.4-4.8 [facility] Comment on above: Order Comment: 310.2 Result Comment: KELLY TOLD SUSY @610. TRY 09/04/25 Performed By: #### L 500.4050, L100.0500 #### [facility] [address] [place], [address] ALK PHOS Normal 35-104 [facility] Comment on above: Order Comment: 310.2 Result Comment: UTO TOLD SUSY @610. TRY 09/04/25 Performed By: #### L 500.4050, L100.0500 #### [facility] [address] [place], [address] ALT Normal <=34 [facility] Comment on above: Order Comment: 310.2 Result Comment: UTO TOLD SUSY @610. TRY 09/04/25 Performed By: #### L 500.4050, L100.0500 #### [facility] [address] [place], [address] AST Normal <=31 [facility] Comment on above: Order Comment: 310.2 Result Comment: KELLY TOLD SUSY @610. TRY 09/04/25 Performed By: #### L 500.4050, L100.0500 #### [facility] [address] [place], [address] BUN Normal 4-19 [facility] Comment on above: Order Comment: 310.2 Result Comment: KELLY TOLD SUSY @610. TRY 09/04/25 Performed By: #### L 500.4050, L100.0500 #### [facility] [address] [place], [address] BUN/CRE Normal 10-20 [facility] Comment on above: Order Comment: 310.2 Result Comment: UTO TOLD SUSY @610. TRY 09/04/25 Performed By: #### L 500.4050, L100.0500 #### [facility] [address] [place], [address] Calcium Normal 7.6-11.0 [facility] Comment on above: Order Comment: 310.2 Result Comment: KELLY JAIN @610. TRY 09/04/25 Performed By: #### L 500.4050, L100.0500 #### [facility] [address] [place], [address] CL Normal 98-108 [facility] Comment on above: Order Comment: 310.2 Result Comment: KELLY JAIN @610. TRY 09/04/25 Performed By: #### L 500.4050, L100.0500 #### [facility] [address] [place], [address] CO2 Normal 21.0-32.0 [facility] Comment on above: Order Comment: 310.2 Result Comment: KELLY JAIN @610. TRY 09/04/25 Performed By: #### L 500.4050, L100.0500 #### [facility] [address] [place], [address] CREAT,SERUM Normal 0.70-1.20 [facility] Comment on above: Order Comment: 310.2 Result Comment: KELLY JAIN @610. TRY 09/04/25 Performed By: #### L 500.4050, L100.0500 #### [facility] [address] [place], [address] eGFR Normal >60 [facility] Comment on above: Order Comment: 310.2 Result Comment: KELLY JAIN @610. TRY 09/04/25 Performed By: #### L 500.4050, L100.0500 #### [facility] [address] [place], [address] GAP Normal 5-15 [facility] Comment on above: Order Comment: 310.2 Result Comment: KELLY JAIN @610. TRY 09/04/25 Performed By: #### L 500.4050, L100.0500 #### [facility] [address] [place], [address] GLU Normal 70-99 [facility] Comment on above: Order Comment: 310.2 Result Comment: KELLY JAIN @610. TRY 09/04/25 Performed By: #### L 500.4050, L100.0500 #### [facility] [address] [place], [address] Potassium Normal 3.3-5.1 [facility] Comment on above: Order Comment: 310.2 Result Comment: KELLY JAIN @610. TRY 09/04/25 Performed By: #### L 500.4050, L100.0500 #### [facility] [address] [place], [address] T BILI Normal 0.00-1.30 [facility] Comment on above: Order Comment: 310.2 Result Comment: KELLY JAIN @610. TRY 09/04/25 Performed By: #### L 500.4050, L100.0500 #### [facility] [address] [place], [address] T PROT Normal 5.9-8.4 [facility] Comment on above: Order Comment: 310.2 Result Comment: KELLY JAIN @610. TRY 09/04/25 Performed By: #### L 500.4050, L100.0500 #### [facility] [address] [place], [address] Comprehensive Metabolic Profil Normal 133-145 [facility] Comment on above: Order Comment: 310.2 Result Comment: KELLY JAIN @610. TRY 09/04/25 Performed By: #### L 500.4050, L100.0500 #### [facility] [address] [place], [address] CBC panel Auto (Bld)on 10-31 Erythrocyte distribution width (RBC) [Ratio] 14.4 % Normal 11.5-14.5 [facility] Comment on above: Performed By: #### 1 9123-9 #### BEVERLEY Poe ([id number]) [facility] ([facility]) [id number] [place] [address] Hematocrit (Bld) [Volume fraction] 33.5 % Low 36.0-46.0 [facility] Comment on above: Performed By: #### 1 9123-9 #### BEVERLEY Poe ([id number]) [facility] ([facility]) [address] [place] [address] Hemoglobin (Bld) [Mass/Vol] 10.0 g/dL Low 12.0-16.0 [facility] Comment on above: Performed By: #### 1 9123-9 #### BEVERLEY Poe ([id number]) [facility] ([facility]) [id number] [place] [address] MCH (RBC) [Entitic mass] 31.2 pg Normal 26.0-34.0 [facility] Comment on above: Performed By: #### 1 9123-9 #### BEVERLEY Poe ([id number]) [facility] ([facility]) [id number] [place] [address] MCHC (RBC) [Mass/Vol] 29.9 g/dL Low 32.0-36.0 [facility] Comment on above: Performed By: #### 1 9123-9 #### BEVERLEY Poe ([id number]) [facility] ([facility]) [id number] [place] [address] MCV (RBC) [Entitic vol] 104 fL High 80-100 [facility] Comment on above: Performed By: #### 1 9123-9 #### BEVERLEY Poe ([id number]) [facility] ([facility]) [id number] [place] [address]48[address] Nucleated RBC/100 WBC (Bld) [Ratio] 0.0 /100 WBCs Normal 0.0-0.0 [facility] Comment on above: Performed By: #### 1 9123-9 #### BEVERLEY Poe ([id number]) [facility] ([facility]) [id number] [place] [address] Platelets (Bld) [#/Vol] 112 x10*3/uL Low 150-450 [facility] Comment on above: Performed By: #### 1 9123-9 #### BEVERLEY Poe ([id number]) [facility] ([facility]) [id number] [place] [address] 11632 RBC (Bld) [#/Vol] 3.21 x10*6/uL Low 4.00-5.20 [facility] Comment on above: Performed By: #### 1 9123-9 #### BEVERLEY Poe ([id number]) [facility] ([facility]) [address] [place] [address] WBC (Bld) [#/Vol] 4.6 x10*3/uL Normal 4.4-11.3 [facility] Comment on above: Performed By: #### 1 9123-9 #### BEVERLEY Poe ([id number]) [facility] ([facility]) [address] [place] [address] Comprehensive metabolic 2000 panelon 10-31-2023 Albumin BCP dye [Mass/Vol] 3.6 g/dL Normal 3.4-5.0 [facility] Comment on above: Performed By: #### 1 9123-9 #### BEVERLEY Poe ([id number]) [facility] ([facility]) [id number] [place] [address]90 ALP [Catalytic activity/Vol] 58 U/L Normal 33-136 [facility] Comment on above: Performed By: #### 1 9123-9 #### BEVERLEY Poe ([id number]) [facility] ([facility]) [id number] [place] [address] ALT With P-5'-P [Catalytic activity/Vol] 16 U/L Normal 7-45 [facility] Comment on above: Result Comment: Ирина ents treated with Sulfasalazine may generate falsely decreased results for ALT. Performed By: #### 1 9123-9 #### BEVERLEY Poe ([id number]) [facility] ([facility]) [address] [place] [address] Anion gap [Moles/Vol] 8 mmol/L Low 10-20 [facility] Comment on above: Performed By: #### 1 9123-9 #### BEVERLEY Poe ([id number]) [facility] ([facility]) [address] [place] [address] AST With P-5'-P [Catalytic activity/Vol] 14 U/L Normal 9-39 [facility] Comment on above: Performed By: #### 1 9123-9 #### BEVERLEY Poe ([id number]) [facility] ([facility]) [address] [place] [address] Bilirubin [Mass/Vol] 0.5 mg/dL Normal 0.0-1.2 [facility] Comment on above: Performed By: #### 1 9123-9 #### BEVERLEY Poe ([id number]) [facility] ([facility]) [address] [place] [address] Calcium [Mass/Vol] 9.3 mg/dL Normal 8.6-10.6 [facility] Comment on above: Performed By: #### 1 9123-9 #### BEVERLEY Poe ([id number]) [facility] ([facility]) [address] [place] [address] Chloride [Moles/Vol] 99 mmol/L Normal 98-107 [facility] Comment on above: Performed By: #### 1 9123-9 #### BEVERLEY Poe ([id number]) [facility] ([facility]) [address] [place] [address] CO2 [Moles/Vol] 42 mmol/L Critically high 21-32 [facility] Comment on above: Performed By: #### 1 9123-9 #### BEVERLEY Poe ([id number]) [facility] ([facility]) [address] [place] [address] Creatinine [Mass/Vol] 0.48 mg/dL Low 0.50-1.05 [facility] Comment on above: Performed By: #### 1 9123-9 #### BEVERLEY Poe ([id number]) [facility] ([facility]) [address] [place] [address] GFR/1.73 sq M.predicted MDRD (S/P/Bld) [Vol rate/Area] mL/min/{1.73_m2} Normal >60 [facility] Comment on above: Result Comment: Calc ulations of estimated GFR are performed using the 2020 CKD-EPI Study Refit equation without the race variable for the IDMS-Traceable creatinine methods. https://jasn.asnjournals.org/content/early//ASN.99643 26951 Performed By: #### 1 9123-9 #### BEVERLEY Poe ([id number]) [facility] ([facility]) [address] [place] [address] Glucose [Mass/Vol] 82 mg/dL Normal 74-99 [facility] Comment on above: Performed By: #### 1 9123-9 #### BEVERLEY Poe ([id number]) [facility] ([facility]) [address] [place] [address] Potassium [Moles/Vol] 4.3 mmol/L Normal 3.5-5.3 [facility] Comment on above: Performed By: #### 1 9123-9 #### BEVERLEY Poe ([id number]) [facility] ([facility]) [id number] [place] [address] 34964 Protein [Mass/Vol] 6.8 g/dL Normal 6.4-8.2 [facility] Comment on above: Performed By: #### 1 9123-9 #### BEVERLEY Poe ([id number]) [facility] ([facility]) [address] [place] [address] Sodium [Moles/Vol] 145 mmol/L Normal 136-145 [facility] Comment on above: Performed By: #### 1 9123-9 #### BEVERLEY CARSONER L ([id number]) [facility] ([facility]) [address] [place] [address] Urea nitrogen [Mass/Vol] 21 mg/dL Normal 6-23 [facility] Comment on above: Performed By: #### 1 9123-9 #### BEVERLEY DODD L ([id number]) [facility] ([facility]) [id number] [place] [address]409 Natriuretic peptide B [Mass/ Vol]on 10-31-2023 Interpretation and review of laboratory results Normal [facility] Natriuretic peptide B (Bld) [Mass/Vol] 98 pg/mL 0 - 99 pg/mL [facility] <100 pg/mL - Heart failure unlikely [...] contact their local laboratory for further information. [facility] Natriuretic peptide B (Bld) [Mass/Vol] 98 pg/mL Normal 0-99 [facility] Comment on above: Order Comment: <100 pg/mL - Heart failure xbyduous395-698 pg/mL - Intermediate probability of acute heart [...] #### 1 9123-9 #### BEVERLEY DODD L ([id number]) [facility] ([facility]) [address] [place] [address] Blood type and Indirect anti body screen panel (Bld)on 10-28-2023 ABO group Nom (Bld) O Normal [facility] Comment on above: Performed By: #### 1 9123-9 #### BEVERLEY Poe ([id number]) [facility] ([facility]) [address] [place] [address] 90596 Blood group antibody screen Ql Negative [facility] Comment on above: Performed By: #### 1 9123-9 #### BEVERLEY Poe ([id number]) [facility] ([facility]) [address] [place] [address] 89192 D Ag Ql (Bld) Positive [facility] Comment on above: Performed By: #### 1 9123-9 #### BEVERLEY Poe ([id number]) [facility] ([facility]) [address] [place] [address] 41389 CBC W Auto Differential pane l (Bld)on 10-28-2023 Basophils (Bld) [#/Vol] 0.01 x10*3/uL Normal 0.00-0.10 [facility] Comment on above: Performed By: #### 1 9123-9 #### BEVERLEY Poe ([id number]) [facility] ([facility]) [address] [place] [address] 66424 Basophils/100 WBC (Bld) 0.3 % Normal 0.0-2.0 [facility] Comment on above: Performed By: #### 1 9123-9 #### BEVERLEY DODD L ([id number]) [facility] ([facility]) [address] [place] [address] 09129 Eosinophils (Bld) [#/Vol] 0.05 x10*3/uL Normal 0.00-0.40 [facility] Comment on above: Performed By: #### 1 9123-9 #### BEVERLEY Poe ([id number]) [facility] ([facility]) [address] [place] [address] 06744 Eosinophils/100 WBC (Bld) 1.3 % Normal 0.0-6.0 [facility] Comment on above: Performed By: #### 1 9123-9 #### BEVERLEY Poe ([id number]) [facility] ([facility]) [address] [place] [address] 58263 Erythrocyte distribution width (RBC) [Ratio] 14.5 % Normal 11.5-14.5 [facility] Comment on above: Performed By: #### 1 9123-9 #### BEVERLEY Poe ([id number]) [facility] ([facility]) [address] [place] [address] 22289 Hematocrit (Bld) [Volume fraction] 32.3 % Low 36.0-46.0 [facility] Comment on above: Performed By: #### 1 9123-9 #### BEVERLEY Poe ([id number]) [facility] ([facility]) [address] [place] [address] 14679 Hemoglobin (Bld) [Mass/Vol] 9.5 g/dL Low 12.0-16.0 [facility] Comment on above: Performed By: #### 1 9123-9 #### BEVERLEY Poe ([id number]) [facility] ([facility]) [address] [place] [address] 05612 Immature granulocytes (Bld) [#/Vol] 0.02 x10*3/uL Normal 0.00-0.50 [facility] Comment on above: Performed By: #### 1 9123-9 #### BEVERLEY Poe ([id number]) [facility] ([facility]) [address] [place] [address] 18956 Immature granulocytes/100 WBC (Bld) 0.5 % Normal 0.0-0.9 [facility] Comment on above: Result Comment: Sharda ture Granulocyte Count (IG) includes promyelocytes, myelocytes and metamyelocytes but does not include bands. Percent differential counts (%) should be interpreted in the context of the absolute cell counts (cells/UL). Performed By: #### 1 9123-9 #### BEVERLEY Poe ([id number]) [facility] ([facility]) [address] [place] [address] 95942 Lymphocytes (Bld) [#/Vol] 0.64 x10*3/uL Low 0.80-3.00 [facility] Comment on above: Performed By: #### 1 9123-9 #### BEVERLEY Poe ([id number]) [facility] ([facility]) [address] [place] [address] 25163 Lymphocytes/100 WBC (Bld) 16.0 % Normal 13.0-44.0 [facility] Comment on above: Performed By: #### 1 9123-9 #### BEVERLEY Poe ([id number]) [facility] ([facility]) [address] [place] [address] 50682 MCH (RBC) [Entitic mass] 30.2 pg Normal 26.0-34.0 [facility] Comment on above: Performed By: #### 1 9123-9 #### BEVERLEY Poe ([id number]) [facility] ([facility]) [address] [place] [address] 58625 MCHC (RBC) [Mass/Vol] 29.4 g/dL Low 32.0-36.0 [facility] Comment on above: Performed By: #### 1 9123-9 #### BEVERLEY Poe ([id number]) [facility] ([facility]) [address] [place] [address] 52319 MCV (RBC) [Entitic vol] 103 fL High 80-100 [facility] Comment on above: Performed By: #### 1 9123-9 #### BEVERLEY Poe ([id number]) [facility] H[facility]PITAL) [address] [place] [address]13 Monocytes (Bld) [#/Vol] 0.23 x10*3/uL Normal 0.05-0.80 [facility] Comment on above: Performed By: #### 1 9123-9 #### BEVERLEY Poe ([id number]) [facility] ([facility]) [address] [place] [address] [place] [address] Monocytes/100 WBC (Bld) 5.8 % Normal 2.0-10.0 [facility] Comment on above: Performed By: #### 1 9123-9 #### BEVERLEY Poe ([id number]) [facility] ([facility]) [address] [place] [address] Neutrophils (Bld) [#/Vol] 3.04 x10*3/uL Normal 1.60-5.50 [facility] Comment on above: Result Comment: Perc ent differential counts (%) should be interpreted in the context of the absolute cell counts (cells/uL). Performed By: #### 1 9123-9 #### BEVERLEY Poe ([id number]) [facility] ([facility]) [id number] [place] [address] 12372 Neutrophils/100 WBC (Bld) 76.1 % Normal 40.0-80.0 [facility] Comment on above: Performed By: #### 1 9123-9 #### BEVERLEY Poe ([id number]) [facility] ([facility]) [id number] [place] [address] 41027 Nucleated RBC/100 WBC (Bld) [Ratio] 0.0 /100 WBCs Normal 0.0-0.0 [facility] Comment on above: Performed By: #### 1 9123-9 #### BEVERLEY Poe ([id number]) [facility] ([facility]) [address] [place] [address] Platelets (Bld) [#/Vol] 107 x10*3/uL Low 150-450 [facility] Comment on above: Performed By: #### 1 9123-9 #### BEVERLEY Poe ([id number]) [facility] ([facility]) [id number] [place] [address]379 RBC (Bld) [#/Vol] 3.15 x10*6/uL Low 4.00-5.20 [facility] Comment on above: Performed By: #### 1 9123-9 #### BEVERLEY Poe ([id number]) [facility] ([facility]) [address] [place] [address] WBC (Bld) [#/Vol] 4.0 x10*3/uL Low 4.4-11.3 [facility] Comment on above: Performed By: #### 1 9123-9 #### BEVERLEY Poe ([id number]) [facility] ([facility]) [address] [place] [address] Comprehensive metabolic 2000 panelon 10-28-2023 Albumin BCP dye [Mass/Vol] 3.6 g/dL Normal 3.4-5.0 [facility] Comment on above: Performed By: #### 1 9123-9 #### BEVERLEY Poe ([id number]) [facility] ([facility]) [id number] [place] [address]274 ALP [Catalytic activity/Vol] 66 U/L Normal 33-136 [facility] Comment on above: Performed By: #### 1 9123-9 #### BEVERLEY Poe ([id number]) [facility] ([facility]) [address] [place] [address] ALT With P-5'-P [Catalytic activity/Vol] 18 U/L Normal 7-45 [facility] Comment on above: Result Comment: Ирина ents treated with Sulfasalazine may generate falsely decreased results for ALT. Performed By: #### 1 9123-9 #### BEVERLEY Poe ([id number]) [facility] ([facility]) [address] [place] [address] Anion gap [Moles/Vol] 9 mmol/L Low 10-20 [facility] Comment on above: Performed By: #### 1 9123-9 #### BEVERLEY Poe ([id number]) [facility] ([facility]) [address] [place] [address] AST With P-5'-P [Catalytic activity/Vol] 16 U/L Normal 9-39 [facility] Comment on above: Performed By: #### 1 9123-9 #### BEVERLEY Poe ([id number]) [facility] ([facility]) [address] [place] [address] Bilirubin [Mass/Vol] 0.6 mg/dL Normal 0.0-1.2 [facility] Comment on above: Performed By: #### 1 9123-9 #### BEVERLEY CARSONER L ([id number]) [facility] ([facility]) [address] [place] [address] Calcium [Mass/Vol] 9.4 mg/dL Normal 8.6-10.6 [facility] Comment on above: Performed By: #### 1 9123-9 #### BEVERLEY CARSONER L ([id number]) [facility] ([facility]) [address] [place] [address] Chloride [Moles/Vol] 100 mmol/L Normal 98-107 [facility] Comment on above: Performed By: #### 1 9123-9 #### BEVERLEY PATELTZER L ([id number]) [facility] ([facility]) [address] [place] [address] CO2 [Moles/Vol] 43 mmol/L Critically high 21-32 [facility] Comment on above: Performed By: #### 1 9123-9 #### BEVERLEY DODD L ([id number]) [facility] ([facility]) [address] [place] [address] Creatinine [Mass/Vol] 0.62 mg/dL Normal 0.50-1.05 [facility] Comment on above: Performed By: #### 1 9123-9 #### BEVERLEY PATELTZER L ([id number]) [facility] ([facility]) [address] [place] [address] GFR/1.73 sq M.predicted MDRD (S/P/Bld) [Vol rate/Area] mL/min/{1.73_m2} Normal >60 [facility] Comment on above: Result Comment: Calc ulations of estimated GFR are performed using the 2020 CKD-EPI Study Refit equation without the race variable for the IDMS-Traceable creatinine methods. https://brunasn.priscillajournals.org/content//ASN.31056 27274 Performed By: #### 1 9123-9 #### BEVERLEY Poe ([id number]) [facility] ([facility]) [id number] [place] [address] Glucose [Mass/Vol] 101 mg/dL High 74-99 [facility] Comment on above: Performed By: #### 1 9123-9 #### BEVERLEY Poe ([id number]) [facility] ([facility]) [id number] [place] [address] Potassium [Moles/Vol] 4.5 mmol/L Normal 3.5-5.3 [facility] Comment on above: Performed By: #### 1 9123-9 #### BEVERLEY Poe ([id number]) [facility] ([facility]) [address] [place] [address]695 Protein [Mass/Vol] 7.0 g/dL Normal 6.4-8.2 [facility] Comment on above: Performed By: #### 1 9123-9 #### BEVERLEY Poe ([id number]) [facility] ([facility]) [address] [place] [address] 88606 Sodium [Moles/Vol] 147 mmol/L High 136-145 [facility] Comment on above: Performed By: #### 1 9123-9 #### BEVERLEY Poe ([id number]) [facility] ([facility]) [address] [place] [address] 65668 Urea nitrogen [Mass/Vol] 19 mg/dL Normal 6-23 [facility] Comment on above: Performed By: #### 1 9123-9 #### BEVERLEY Poe ([id number]) [facility] ([facility]) [address] [place] [address] 28653 ECG 12-LEADon 10-28-2023 ECG 12-LEAD Ventricular Rate 76 Atrial Rate 76 P-R Interval 156 QRS Duration 132 Q-T Interval 428 QTC Calculation(Bazett) 481 P Mallory 57 R Mallory -49 T Mallory 51 QRS Count 12 Q Onset 210 [...] 11/11/2023 6:42:46 PM Normal [facility] Prealbuminon 10-28-2023 Prealbumin [Mass/Vol] 18.4 mg/dL Normal 18.0-40.0 [facility] Comment on above: Performed By: #### 1 9123-9 #### BEVERLEY Poe ([id number]) [facility] ([facility]) [address] [place] [address] Staphylococcus aureus.methic illin resistant isolateon 10-28-2023 MRSA isol Org specific cx Ql (Nose) Test: Staphylococcus aureus/MRSA colonization, Culture Specimen Source: Anterior Nares Specimen Type: Swab Specimen Date: 10/28/2023 9:56 AM Result Date: 10/29/2023 1:28 PM Result Status: Final result Abnormal: No Resulting Lab: [facility] [address] [place] [address] CULTURE No Staphylococcus aureus isolated [facility] Comment on above: Performed By: #### 1 9123-9 #### BEVERLEY Poe ([id number]) [facility] ([facility]) [address] [place] [address] Basophil percentageOrdered B y: Jonathanfausto Dillard on 10-11-2023 Bilirubin [Mass/Vol] 0.30 mg/dL 0.20-1.00 [facility] [place] Comment on above: For patients on eltr ombopag therapy, use of Dimension Cookson TBIL is not recommended. Chloride [Moles/Vol] 101 mmol/L 98-107 [facility] [place] Glucose [Mass/Vol] 102 mg/dL 74-106 [facility] Comment on above: Fasting Glucose resu lt from 100 to 125 mg/dL suggests IMPAIRED HOMEOSTASIS per A.D.A. criteria. Potassium [Moles/Vol] 3.7 mmol/L 3.5-5.1 [facility] Protein [Mass/Vol] 6.4 g/dL 6.4-8.2 [facility] Sodium [Moles/Vol] 144 mmol/L 136-145 [facility] WBC (Bld) [#/Vol] 3.3 10*3/uL 4.4-11.0 [facility] Blood erythrocytes count (nu mber/volume)Ordered By: Jonathan Dillard on 10-11-2023 RBC (Bld) [#/Vol] 2.77 10*6/uL 4.2-5.4 [facility] Blood hemoglobin measurement (mass/volume)Ordered By: Jonathan Dillard on 10-11-2023 Hemoglobin (Bld) [Mass/Vol] 8.2 g/dL 12.0-15.0 [facility] Blood platelet mean volumeOr dered By: Jonathan Dillard on 10-11-2023 Platelet mean volume (Bld) [Entitic vol] 8.8 fL 6.2-12.0 [facility] Determination of erythrocyte mean corpuscular volume (MCV)Ordered By: Jonathan Dillard on 10-11-2023 MCV (RBC) [Entitic vol] 105.8 fL 81-99 [facility] Hematocrit Auto (Bld) [Volum e fraction]Ordered By: Jonathan Dillard on 10-11-2023 Hematocrit (Bld) [Volume fraction] 29.3 % 37-47 [facility] Laboratory - Chemistry and C hemistry - challengeOrdered By: Jonathan Dillard on 10-11-2023 ALP [Catalytic activity/Vol] 51 U/L 45-117 [facility] ALT [Catalytic activity/Vol] 18 U/L 13-56 [facility] CO2 [Moles/Vol] 41.0 mmol/L 21.0-32.0 [facility] Globulin (S) [Mass/Vol] 4.1 g/dL 2.2-4.2 [facility] Urea nitrogen/Creatinine [Mass ratio] 36.1 mg/mg 10-20 [facility] Laboratory - Hematology and Cell countsOrdered By: Jonathan Dillard on 10-11-2023 Erythrocyte distribution width (RBC) [Entitic vol] 54.5 fL 35.1-43.9 [facility] Erythrocyte distribution width (RBC) [Ratio] 14.0 % 11.6-14.6 [facility] MCH (RBC) [Entitic mass] 29.6 pg 27.0-32.0 [facility] MCHC Auto (RBC) [Mass/Vol]Or dered By: Jonathan Dillard on 10-11-2023 MCHC (RBC) [Mass/Vol] 28.0 g/dL 32-36 [facility] No Panel InformationOrdered By: Jonathan Dillard on 10-11-2023 Estimated GFR (MDRD) Amer 156 mL/min >60 [facility] Comment on above: GFR Calc Estimated GFR (MDRD) Non-Af Amer 129 mL/min >60 [facility] Comment on above: Non- GFR Calc Platelets bldOrdered By: Mervat Dillard on 10-11-2023 Platelets (Bld) [#/Vol] 116 10*3/uL 150-450 [facility] Serum or plasma albumin celina urement (mass/volume)Ordered By: Jonathan Dillard on 10-11-2023 Albumin [Mass/Vol] 2.3 g/dL 3.2-5.0 [facility] Serum or plasma albumin/glob ulin mass ratioOrdered By: Jonathan Dillard on 10-11-2023 Albumin/Globulin [Mass ratio] 0.6 {ratio} 0.9-2.4 [facility] Serum or plasma calcium celina urement (mass/volume)Ordered By: Jonathan Dillard on 10-11-2023 Calcium [Mass/Vol] 7.8 mg/dL 8.5-10.1 [facility] Serum or plasma creatinine m easurement (mass/volume)Ordered By: Jonathan Dillard on 10-11-2023 Creatinine [Mass/Vol] 0.50 mg/dL 0.55-1.02 [facility] Comment on above: The validity of the calculated GFR & GFRAA in patients over 70 years has not been determined. Clinical correlation is essential. Serum or plasma urea nitroge n measurement (mass/volume)Ordered By: Jonathan Dillard on 10-11-2023 Urea nitrogen [Mass/Vol] 18 mg/dL 7-18 [facility] Thin prep Papanicolaou smear with manual screeningOrdered By: Jonathan Dillard on 10-11-2023 Thin prep Papanicolaou smear with manual screening 14 U/L 15-37 [facility] Thin prep Papanicolaou smear with manual screening 2 5-15 [facility] Laboratory - Chemistry and C hemistry - challengeOrdered By: Jonathan Dillard on 10-04-2023 Cobalamin (Vitamin B12) [Mass/Vol] 926 pg/mL 211-911 [facility] Basophil percentageOrdered B y: Jonathan Dillard on 10-03-2023 Bilirubin [Mass/Vol] 0.40 mg/dL 0.20-1.00 [facility] Comment on above: For patients on eltr ombopag therapy, use of Dimension Cookson TBIL is not recommended. Chloride [Moles/Vol] 103 mmol/L 98-107 [facility] Cholesterol [Mass/Vol] 112 mg/dL <200 [facility] Comment on above: <200 mg/dL Desirable 200-240 mg/dL Borderline >240 mg/dL High Risk Glucose [Mass/Vol] 133 mg/dL 74-106 [facility] Comment on above: Fasting Glucose resu lt greater than or equal to 126 mg/dL suggests DIABETES MELLITUS per A.D.A. criteria. Potassium [Moles/Vol] 3.8 mmol/L 3.5-5.1 [facility] Protein [Mass/Vol] 6.2 g/dL 6.4-8.2 [facility] Sodium [Moles/Vol] 144 mmol/L 136-145 [facility] Triglyceride [Mass/Vol] 156 mg/dL <199 [facility] Comment on above: The drugs N-Acetylcy steine and Metamizole may falsely depress this assay.Serum Triglycerides Reference Interval Normal <150 mg/dL Borderline high 150 - 199 mg/dL High 200 - 499 mg/dL Very High > or = 500 mg/dL WBC (Bld) [#/Vol] 3.6 10*3/uL 4.4-11.0 [facility] Blood erythrocytes count (nu mber/volume)Ordered By: Jonathan Dillard on 10-03-2023 RBC (Bld) [#/Vol] 2.77 10*6/uL 4.2-5.4 [facility] Blood hemoglobin measurement (mass/volume)Ordered By: Jonathan Dillard on 10-03-2023 Hemoglobin (Bld) [Mass/Vol] 8.2 g/dL 12.0-15.0 [facility] Blood platelet mean volumeOr dered By: Jonathan Dillard on 10-03-2023 Platelet mean volume (Bld) [Entitic vol] 9.3 fL 6.2-12.0 [facility] Determination of erythrocyte mean corpuscular volume (MCV)Ordered By: Jonathan Dillard on 10-03-2023 MCV (RBC) [Entitic vol] 104.0 fL 81-99 [facility] Hematocrit Auto (Bld) [Volum e fraction]Ordered By: Jonathan Dillard on 10-03-2023 Hematocrit (Bld) [Volume fraction] 28.8 % 37-47 [facility] Laboratory - Chemistry and C hemistry - challengeOrdered By: Jonathan Dillard on 10-03-2023 ALP [Catalytic activity/Vol] 42 U/L 45-117 [facility] ALT [Catalytic activity/Vol] 16 U/L 13-56 [facility] CO2 [Moles/Vol] 40.0 mmol/L 21.0-32.0 [facility] Globulin (S) [Mass/Vol] 3.9 g/dL 2.2-4.2 [facility] Urea nitrogen/Creatinine [Mass ratio] 35.6 mg/mg 10-20 [facility] Laboratory - Hematology and Cell countsOrdered By: Jonathan Dillard on 10-03-2023 Erythrocyte distribution width (RBC) [Entitic vol] 54.0 fL 35.1-43.9 [facility] Erythrocyte distribution width (RBC) [Ratio] 14.2 % 11.6-14.6 [facility] MCH (RBC) [Entitic mass] 29.6 pg 27.0-32.0 [facility] MCHC Auto (RBC) [Mass/Vol]Or dered By: Jonathan Dillard on 10-03-2023 MCHC (RBC) [Mass/Vol] 28.5 g/dL 32-36 [facility] No Panel InformationOrdered By: Jonathan Dillard on 10-03-2023 Estimated GFR (MDRD) Amer 153 mL/min >60 [facility] Comment on above: GFR Calc Estimated GFR (MDRD) Non-Af Amer 127 mL/min >60 [facility] Comment on above: Non- GFR Calc Platelets bldOrdered By: Mervat Dillard on 10-03-2023 Platelets (Bld) [#/Vol] 104 10*3/uL 150-450 [facility] Serum or plasma albumin celina urement (mass/volume)Ordered By: Jonathan Dillard on 10-03-2023 Albumin [Mass/Vol] 2.3 g/dL 3.2-5.0 [facility] Serum or plasma albumin/glob ulin mass ratioOrdered By: Jonathan Dillard on 10-03-2023 Albumin/Globulin [Mass ratio] 0.6 {ratio} 0.9-2.4 [facility] Serum or plasma calcium celina urement (mass/volume)Ordered By: Jonathan Dillard on 10-03-2023 Calcium [Mass/Vol] 8.4 mg/dL 8.5-10.1 [facility] Serum or plasma cholesterol in HDL measurement (mass/volume)Ordered By: Jonathan Dillard on 10-03-2023 Cholesterol in HDL [Mass/Vol] 41 mg/dL >40 [facility] Comment on above: The drugs N-Acetylcy steine and Metamizole may falsely depress this assay. Reference Range HDL <40 mg/dL Low HDL Cholesterol HDL >or= 60 mg/dL High HDL Cholesterol Serum or plasma cholesterol in VLDL measurement (mass/volume)Ordered By: Jonathan Dillard on 10-03-2023 Cholesterol in VLDL [Mass/Vol] 31 mg/dL 5-40 [facility] Serum or plasma creatinine m easurement (mass/volume)Ordered By: Jonathan Dillard on 10-03-2023 Creatinine [Mass/Vol] 0.51 mg/dL 0.55-1.02 [facility] Comment on above: The validity of the calculated GFR & GFRAA in patients over 70 years has not been determined. Clinical correlation is essential. Serum or plasma low density lipoprotein (LDL) cholesterol measurement (mass/volume)Ordered By: Jonathan Dillard on 10-03-2023 Cholesterol in LDL [Mass/Vol] 40 mg/dL 0-130 [facility] Serum or plasma urea nitroge n measurement (mass/volume)Ordered By: Jonathan Dillard on 10-03-2023 Urea nitrogen [Mass/Vol] 18 mg/dL 7-18 [facility] Thin prep Papanicolaou smear with manual screeningOrdered By: Jonathan Dillard on 10-03-2023 Thin prep Papanicolaou smear with manual screening 15 U/L 15-37 [facility] Thin prep Papanicolaou smear with manual screening 1 5-15 [facility] Whole blood hemoglobin A1c/t otal hemoglobin ratio (mass fraction)Ordered By: Jonathan Dillard on 10-03-2023 HbA1c (Bld) [Mass fraction] % 3.8-5.6 [facility] Comment on above: Normal < 5.7 % Predi abetic 5.7 - 6.4 % Diabetic >or= 6.5 % Please note range changes. CBC panel Auto (Bld)on 09-28 Erythrocyte distribution width (RBC) [Ratio] 14.0 % 11.5 - 14.5 % [facility] Hematocrit (Bld) [Volume fraction] 28.8 % Low 36.0 - 46.0 % [facility] Hemoglobin (Bld) [Mass/Vol] 8.4 g/dL Low 12.0 - 16.0 g/dL [facility] Interpretation and review of laboratory results Abnormal [facility] MCH (RBC) [Entitic mass] 30.1 pg 26.0 - 34.0 pg [facility] MCHC (RBC) [Mass/Vol] 29.2 g/dL Low 32.0 - 36.0 g/dL [facility] MCV (RBC) [Entitic vol] 103 fL High 80 - 100 fL [facility] Nucleated RBC/100 WBC (Bld) [Ratio] 0.0 % [facility] Platelets (Bld) [#/Vol] 113 10*3/uL Low [facility] RBC (Bld) [#/Vol] 2.79 10*6/uL [facility] WBC (Bld) [#/Vol] 3.5 10*3/uL [facility] Erythrocyte distribution width (RBC) [Ratio] 14.0 % Normal 11.5-14.5 [facility] Comment on above: Performed By: #### 1 9123-9 #### BEVERLEY Poe ([id number]) [facility] ([facility]) [address] [place] [address] 24213 Hematocrit (Bld) [Volume fraction] 28.8 % Low 36.0-46.0 [facility] Comment on above: Performed By: #### 1 9123-9 #### BEVERLEY Poe ([id number]) [facility] ([facility]) [address] [place] [address] 40601 Hemoglobin (Bld) [Mass/Vol] 8.4 g/dL Low 12.0-16.0 [facility] Comment on above: Performed By: #### 1 9123-9 #### BEVERLEY Poe ([id number]) [facility] ([facility]) [address] [place] [address] 59879 MCH (RBC) [Entitic mass] 30.1 pg Normal 26.0-34.0 [facility] Comment on above: Performed By: #### 1 9123-9 #### BEVERLEY Poe ([id number]) [facility] ([facility]) [address] [place] [address] 00313 MCHC (RBC) [Mass/Vol] 29.2 g/dL Low 32.0-36.0 [facility] Comment on above: Performed By: #### 1 9123-9 #### BEVERLEY Poe ([id number]) [facility] ([facility]) [address] [place] [address] 96502 MCV (RBC) [Entitic vol] 103 fL High 80-100 [facility] Comment on above: Performed By: #### 1 9123-9 #### BEVERLEY Poe ([id number]) [facility] ([facility]) [address] [place] [address] Nucleated RBC/100 WBC (Bld) [Ratio] 0.0 /100 WBCs Normal 0.0-0.0 [facility] Comment on above: Performed By: #### 1 9123-9 #### BEVERLEY Poe ([id number]) [facility] ([facility]) [address] [place] [address] Platelets (Bld) [#/Vol] 113 x10*3/uL Low 150-450 [facility] Comment on above: Performed By: #### 1 9123-9 #### BEVERLEY Poe ([id number]) [facility] ([facility]) [id number] [place] [address] 45522 RBC (Bld) [#/Vol] 2.79 x10*6/uL Low 4.00-5.20 [facility] Comment on above: Performed By: #### 1 9123-9 #### BEVERLEY Poe ([id number]) [facility] ([facility]) [id number] [place] [address] 02834 WBC (Bld) [#/Vol] 3.5 x10*3/uL Low 4.4-11.3 [facility] Comment on above: Performed By: #### 1 9123-9 #### BEVERLEY Poe ([id number]) [facility] ([facility]) [id number] [place] [address] 38610 CTA Heart and Coronary arter ies WO and W contrast Jack 09-28-2023 [facility]AL [facility] Work Phone: CTA Heart and Coronary arter ies WO and W contrast IVOrdered By: Yair Pham on 09-28-2023 [facility] Work Phone: Magnesiumon 09-28-2023 Magnesium [Mass/Vol] 2.13 mg/dL Normal 1.60-2.40 [facility] Comment on above: Performed By: #### 1 9123-9 #### BEVERLEY Poe ([id number]) [facility] ([facility]) [address] [place] [address] Renal function 2000 panelon 09-28-2023 Albumin BCP dye [Mass/Vol] 2.9 g/dL Low 3.4-5.0 [facility] Comment on above: Performed By: #### 1 9123-9 #### BEVERLEY Poe ([id number]) [facility] ([facility]) [address] [place] [address] Anion gap [Moles/Vol] 11 mmol/L Normal 10-20 [facility] Comment on above: Performed By: #### 1 9123-9 #### BEVERLEY Poe ([id number]) [facility] ([facility]) [id number] [place] [address] 29488 Calcium [Mass/Vol] 8.9 mg/dL Normal 8.6-10.6 [facility] Comment on above: Performed By: #### 1 9123-9 #### BEVERLEY Poe ([id number]) [facility] ([facility]) [id number] [place] [address] 02225 Chloride [Moles/Vol] 100 mmol/L Normal 98-107 [facility] Comment on above: Performed By: #### 1 9123-9 #### BEVERLEY Poe ([id number]) [facility] ([facility]) [id number] [place] [address] 62272 CO2 [Moles/Vol] 40 mmol/L Critically high 21-32 [facility] Comment on above: Performed By: #### 1 9123-9 #### BEVERLEY Poe ([id number]) [facility] ([facility]) [address] [place] [address] Creatinine [Mass/Vol] 0.44 mg/dL Low 0.50-1.05 [facility] Comment on above: Performed By: #### 1 9123-9 #### BEVERLEY Poe ([id number]) [facility] ([facility]) [id number] [place] [address] 61209 GFR/1.73 sq M.predicted MDRD (S/P/Bld) [Vol rate/Area] mL/min/{1.73_m2} Normal >60 [facility] Comment on above: Result Comment: Calc ulations of estimated GFR are performed using the 2020 CKD-EPI Study Refit equation without the race variable for the IDMS-Traceable creatinine methods. https://jasn.asnjournals.org/content//ASN.68101 61252 Performed By: #### 1 9123-9 #### BEVERLEY Poe ([id number]) [facility] ([facility]) [address] [place] [address] Glucose [Mass/Vol] 143 mg/dL High 74-99 [facility] Comment on above: Performed By: #### 1 9123-9 #### BEVERLEY Poe ([id number]) [facility] ([facility]) [address] [place] [address] Phosphate [Mass/Vol] 2.8 mg/dL Normal 2.5-4.9 [facility] Comment on above: Result Comment: The performance characteristics of phosphorus testing in heparinized plasma have been validated by the individual laboratory site where testing is performed. Testing on heparinized plasma is not approved by the FDA; however, such approval is not necessary. Performed By: #### 1 9123-9 #### BEVERLEY Poe ([id number]) [facility] ([facility]) [address] [place] [address] Potassium [Moles/Vol] 3.8 mmol/L Normal 3.5-5.3 [facility] Comment on above: Performed By: #### 1 9123-9 #### BEVERLEY Poe ([id number]) [facility] ([facility]) [address] [place] [address] Sodium [Moles/Vol] 147 mmol/L High 136-145 [facility] Comment on above: Performed By: #### 1 9123-9 #### BEVERLEY Poe ([id number]) [facility] ([facility]) [address] [place] [address] Urea nitrogen [Mass/Vol] 11 mg/dL Normal 6-23 [facility] Comment on above: Performed By: #### 1 9123-9 #### BEVERLEY Poe ([id number]) [facility] ([facility]) [address] [place] [address] 87001 SARS coronavirus 2 RNAon SARS-CoV-2 (COVID-19) RNA ISA+probe Ql (Resp) Not detected Normal Not Detected [facility] Comment on above: Order Comment: This [...] and has been validated for use at [facility]. Negative results do not preclude COVID-19 infections and should not be used as the sole basis for diagnosis, treatment, or other management decisions. Performed By: #### 1 9123-9 #### BEVERLEY Poe ([id number]) [facility] ([facility]) [address] [place] [address] 37823 SARS-CoV-2 (COVID-19) RNA NA A+probe Ql (Resp)on 09-28-2023 Interpretation and review of laboratory results Normal [facility] SARS-CoV-2 RT PCRon 09-28-20 SARS-CoV-2 (COVID-19) RNA ISA+probe Ql (Resp) Not detected Not Detected [facility] CBC panel Auto (Bld)on 09-27 Erythrocyte distribution width (RBC) [Ratio] 14.3 % 11.5 - 14.5 % [facility] Hematocrit (Bld) [Volume fraction] 28.0 % Low 36.0 - 46.0 % [facility] Hemoglobin (Bld) [Mass/Vol] 8.0 g/dL Low 12.0 - 16.0 g/dL [facility] Interpretation and review of laboratory results Abnormal [facility] MCH (RBC) [Entitic mass] 29.7 pg 26.0 - 34.0 pg [facility] MCHC (RBC) [Mass/Vol] 28.6 g/dL Low 32.0 - 36.0 g/dL [facility] MCV (RBC) [Entitic vol] 104 fL High 80 - 100 fL [facility] Nucleated RBC/100 WBC (Bld) [Ratio] 0.0 % [facility] Platelets (Bld) [#/Vol] 115 10*3/uL Low [facility] RBC (Bld) [#/Vol] 2.69 10*6/uL [facility] WBC (Bld) [#/Vol] 3.2 10*3/uL [facility] Erythrocyte distribution width (RBC) [Ratio] 14.3 % Normal 11.5-14.5 [facility] Comment on above: Performed By: #### 2 341-6 #### BEVERLEY Poe ([id number]) [facility] ([facility]) [address] [place] [address]752 Hematocrit (Bld) [Volume fraction] 28.0 % Low 36.0-46.0 [facility] Comment on above: Performed By: #### 2 341-6 #### BEVERLEY Poe ([id number]) [facility] ([facility]) [address] [place] [address]54 Hemoglobin (Bld) [Mass/Vol] 8.0 g/dL Low 12.0-16.0 [facility] Comment on above: Performed By: #### 2 341-6 #### BEVERLEY Poe ([id number]) [facility] ([facility]) [id number] [place] [address] 27298 MCH (RBC) [Entitic mass] 29.7 pg Normal 26.0-34.0 [facility] Comment on above: Performed By: #### 2 341-6 #### BEVERLEY Poe ([id number]) [facility] ([facility]) [address] [place] [address] MCHC (RBC) [Mass/Vol] 28.6 g/dL Low 32.0-36.0 [facility] Comment on above: Performed By: #### 2 341-6 #### BEVERLEY Poe ([id number]) [facility] ([facility]) [address] [place] [address] MCV (RBC) [Entitic vol] 104 fL High 80-100 [facility] Comment on above: Performed By: #### 2 341-6 #### BEVERLEY Poe ([id number]) [facility] ([facility]) [address] [place] [address] 65463 Nucleated RBC/100 WBC (Bld) [Ratio] 0.0 /100 WBCs Normal 0.0-0.0 [facility] Comment on above: Performed By: #### 2 341-6 #### BEVERLEY Poe ([id number]) [facility] ([facility]) [address] [place] [address] Platelets (Bld) [#/Vol] 115 x10*3/uL Low 150-450 [facility] Comment on above: Performed By: #### 2 341-6 #### BEVERLEY Poe ([id number]) [facility] ([facility]) [address] [place] [address] RBC (Bld) [#/Vol] 2.69 x10*6/uL Low 4.00-5.20 [facility] Comment on above: Performed By: #### 2 341-6 #### BEVERLEY Poe ([id number]) [facility] ([facility]) [address] [place] [address] 18887 WBC (Bld) [#/Vol] 3.2 x10*3/uL Low 4.4-11.3 [facility] Comment on above: Performed By: #### 2 341-6 #### BEVERLEY Poe ([id number]) [facility] ([facility]) [address] [place] [address] Cobalaminson 09-27-2023 Cobalamin (Vitamin B12) [Mass/Vol] 411 pg/mL Normal 211-911 [facility] Comment on above: Performed By: #### 1 9123-9 #### BEVERLEY Poe ([id number]) [facility] ([facility]) [address] [place] [address] Electrocardiogram, 12-lead P RN ACS symptomsOrdered By: Simon Piedra on 09-27-2023 Atrial Rate 104 BPM [facility] Work Phone: [phone] P Mallory 67 degrees [facility] Work Phone: [phone] P Offset 193 ms [facility] Work Phone: [phone] P Onset 137 ms [facility] Work Phone: [phone] VA Interval 150 ms [facility] Work Phone: [phone] Q Onset 212 ms [facility] Work Phone: [phone] QRS Count 17 beats [facility] Work Phone: [phone] QRS Duration 136 ms [facility] Work Phone: [phone] QT Interval 352 ms [facility] Work Phone: [phone] QTC Calculation(Bazett) 462 [facility] Work Phone: [phone] QTC Fredericia 422 ms [facility] Work Phone: [phone] R Mallory -54 degrees [facility] Work Phone: [phone] T Mallory 70 degrees [facility] Work Phone: [phone] T Offset 388 ms [facility] Work Phone: [phone] Ventricular Rate 104 BPM [facility] Work Phone: [phone] [facility] Work Phone: [phone] Electrocardiogram, 12-lead P RN ACS symptomson 09-27-2023 [facility] Work Phone: Folateon 09-27-2023 Folate [Mass/Vol] 16.2 ng/mL Normal >5.0 [facility] Comment on above: Order Comment: Low < 3.4Borderline 3.4-5.0Normal >5.0Patients receiving more than 5 mg/day of biotin may have interference in test results. A sample should be taken no sooner than eight hours after previous dose. Contact the testing laboratory for additional information. Performed By: #### 1 9123-9 #### BEVERLEY Poe ([id number]) [facility] ([facility]) [address] [place] [address] 11852 Magnesiumon 09-27-2023 Magnesium [Mass/Vol] 2.13 mg/dL 1.60 - 2.40 mg/dL [facility] Magnesium [Mass/Vol] 2.13 mg/dL Normal 1.60-2.40 [facility] Comment on above: Performed By: #### 2 341-6 #### BEVERLEY Poe ([id number]) [facility] ([facility]) [address] [place] [address] 30675 Magnesium [Mass/Vol]on 09-27 Interpretation and review of laboratory results Normal [facility] No Panel Informationon 09-27 [facility] Renal function 2000 panelon 09-27-2023 Albumin BCP dye [Mass/Vol] 2.8 g/dL Low 3.4 - 5.0 g/dL [facility] Anion gap [Moles/Vol] 7 mmol/L Low 10 - 2 0 mmol/L [facility] Calcium [Mass/Vol] 8.7 mg/dL 8.6 - 10. 6 mg/dL [facility] Chloride [Moles/Vol] 102 mmol/L 98 - 10 7 mmol/L [facility] CO2 [Moles/Vol] 42 mmol/L Critically high 21 - 32 mmol/L [facility] Creatinine [Mass/Vol] 0.41 mg/dL Low 0.50 - 1.05 mg/dL [facility] GFR/1.73 sq M.predicted MDRD (S/P/Bld) [Vol rate/Area] - PINF [facility] Glucose [Mass/Vol] 142 mg/dL High 74 - 99 mg/dL [facility] Interpretation and review of laboratory results Abnormal [facility] Phosphate [Mass/Vol] 3.2 mg/dL 2.5 - 4 .9 mg/dL [facility] Potassium [Moles/Vol] 3.9 mmol/L 3.5 - 5.3 mmol/L [facility] Sodium [Moles/Vol] 147 mmol/L High 136 - 145 mmol/L [facility] Urea nitrogen [Mass/Vol] 12 mg/dL 6 - 23 mg/dL [facility] Albumin BCP dye [Mass/Vol] 2.8 g/dL Low 3.4-5.0 [facility] Comment on above: Performed By: #### 2 341-6 #### BEVERLEY Poe ([id number]) [facility] ([facility]) [address] [place] [address] 78191 Anion gap [Moles/Vol] 7 mmol/L Low 10-20 [facility] Comment on above: Performed By: #### 2 341-6 #### BEVERLEY Poe ([id number]) [facility] ([facility]) [address] [place] [address] 74926 Calcium [Mass/Vol] 8.7 mg/dL Normal 8.6-10.6 [facility] Comment on above: Performed By: #### 2 341-6 #### BEVERLEY Poe ([id number]) [facility] ([facility]) [address] [place] [address] 04198 Chloride [Moles/Vol] 102 mmol/L Normal 98-107 [facility] Comment on above: Performed By: #### 2 341-6 #### BEVERLEY Poe ([id number]) [facility] ([facility]) [address] [place] [address] 58637 CO2 [Moles/Vol] 42 mmol/L Critically high 21-32 [facility] Comment on above: Performed By: #### 2 341-6 #### BEVERLEY Poe ([id number]) [facility] ([facility]) [address] [place] [address] Creatinine [Mass/Vol] 0.41 mg/dL Low 0.50-1.05 [facility] Comment on above: Performed By: #### 2 341-6 #### BEVERLEY Poe ([id number]) [facility] ([facility]) [address] [place] [address] GFR/1.73 sq M.predicted MDRD (S/P/Bld) [Vol rate/Area] mL/min/{1.73_m2} Normal >60 [facility] Comment on above: Result Comment: Calc ulations of estimated GFR are performed using the 2020 CKD-EPI Study Refit equation without the race variable for the IDMS-Traceable creatinine methods. https://jasn.asnjournals.org/content/early/ASN.19365 37019 Performed By: #### 2 341-6 #### BEVERLEY Poe ([id number]) [facility] ([facility]) [address] [place] [address] Glucose [Mass/Vol] 142 mg/dL High 74-99 [facility] Comment on above: Performed By: #### 2 341-6 #### BEVERLEY Poe ([id number]) [facility] ([facility]) [address] [place] [address] Phosphate [Mass/Vol] 3.2 mg/dL Normal 2.5-4.9 [facility] Comment on above: Result Comment: The performance characteristics of phosphorus testing in heparinized plasma have been validated by the individual laboratory site where testing is performed. Testing on heparinized plasma is not approved by the FDA; however, such approval is not necessary. Performed By: #### 2 341-6 #### BEVERLEY Poe ([id number]) [facility] ([facility]) [address] [place] [address] Potassium [Moles/Vol] 3.9 mmol/L Normal 3.5-5.3 [facility] Comment on above: Performed By: #### 2 341-6 #### BEVERLEY Poe ([id number]) [facility] ([facility]) [address] [place] [address] Sodium [Moles/Vol] 147 mmol/L High 136-145 [facility] Comment on above: Performed By: #### 2 341-6 #### BEVERLEY Poe ([id number]) [facility] ([facility]) [address] [place] [address] Urea nitrogen [Mass/Vol] 12 mg/dL Normal 6- [facility] Comment on above: Performed By: #### 2 341-6 #### BEVERLEY Poe ([id number]) [facility] ([facility]) [address] [place] [address] 85286 SARS coronavirus 2 RNAon SARS-CoV-2 (COVID-19) RNA ISA+probe Ql (Resp) Not detected Normal Not Detected [facility] Comment on above: Order Comment: This [...] and has been validated for use at [facility]. Negative results do not preclude COVID-19 infections and should not be used as the sole basis for diagnosis, treatment, or other management decisions. Performed By: #### 2 341-6 #### BEVERLEY Poe ([id number]) [facility] ([facility]) [address] [place] [address]88 SARS-CoV-2 (COVID-19) RNA NA A+probe Ql (Resp)on 09-27-2023 Interpretation and review of laboratory results Normal [facility] SARS-CoV-2 RT PCRon 09-27-20 SARS-CoV-2 (COVID-19) RNA ISA+probe Ql (Resp) Not detected Not Detected [facility] CBC panel Auto (Bld)on 09-26 Erythrocyte distribution width (RBC) [Ratio] 14.3 % 11.5 - 14.5 % [facility] Hematocrit (Bld) [Volume fraction] 26.6 % Low 36.0 - 46.0 % [facility] Hemoglobin (Bld) [Mass/Vol] 7.6 g/dL Low 12.0 - 16.0 g/dL [facility] Interpretation and review of laboratory results Abnormal [facility] MCH (RBC) [Entitic mass] 29.9 pg 26.0 - 34.0 pg [facility] MCHC (RBC) [Mass/Vol] 28.6 g/dL Low 32.0 - 36.0 g/dL [facility] MCV (RBC) [Entitic vol] 105 fL High 80 - 100 fL [facility] Nucleated RBC/100 WBC (Bld) [Ratio] 0.0 % [facility] Platelets (Bld) [#/Vol] 107 10*3/uL [facility] RBC (Bld) [#/Vol] 2.54 10*6/uL [facility] WBC (Bld) [#/Vol] 4.1 10*3/uL [facility] Erythrocyte distribution width (RBC) [Ratio] 14.3 % Normal 11.5-14.5 [facility] Comment on above: Performed By: #### 2 341-6 #### BEVERLEY Poe ([id number]) [facility] ([facility]) [address] [place] [address] 19354 Hematocrit (Bld) [Volume fraction] 26.6 % Low 36.0-46.0 [facility] Comment on above: Performed By: #### 2 341-6 #### BEVERLEY Poe ([id number]) [facility] ([facility]) [address] [place] [address] 12004 Hemoglobin (Bld) [Mass/Vol] 7.6 g/dL Low 12.0-16.0 [facility] Comment on above: Performed By: #### 2 341-6 #### BEVERLEY Poe ([id number]) [facility] ([facility]) [address] [place] [address] 93728 MCH (RBC) [Entitic mass] 29.9 pg Normal 26.0-34.0 [facility] Comment on above: Performed By: #### 2 341-6 #### BEVERLEY Poe ([id number]) [facility] ([facility]) [address] [place] [address] 89955 MCHC (RBC) [Mass/Vol] 28.6 g/dL Low 32.0-36.0 [facility] Comment on above: Performed By: #### 2 341-6 #### BEVERLEY Poe ([id number]) [facility] ([facility]) [address] [place] [address] 02041 MCV (RBC) [Entitic vol] 105 fL High 80-100 [facility] Comment on above: Performed By: #### 2 341-6 #### BEVERLEY Poe ([id number]) [facility] ([facility]) [address] [place] [address] 62900 Nucleated RBC/100 WBC (Bld) [Ratio] 0.0 /100 WBCs Normal 0.0-0.0 [facility] Comment on above: Performed By: #### 2 341-6 #### BEVERLEY Poe ([id number]) [facility] ([facility]) [address] [place] [address] 92294 Platelets (Bld) [#/Vol] 107 x10*3/uL Low 150-450 [facility] Comment on above: Performed By: #### 2 341-6 #### BEVERLEY Poe ([id number]) [facility] ([facility]) [address] [place] [address] 39000 RBC (Bld) [#/Vol] 2.54 x10*6/uL Low 4.00-5.20 [facility] Comment on above: Performed By: #### 2 341-6 #### BEVERLEY Poe ([id number]) [facility] ([facility]) [address] [place] [address] WBC (Bld) [#/Vol] 4.1 x10*3/uL Low 4.4-11.3 [facility] Comment on above: Performed By: #### 2 341-6 #### BEVERLEY Poe ([id number]) [facility] ([facility]) [id number] [place], [place] [id number] CTA Heart and Coronary arter ies WO and W contrast Jack 09-26-2023 Radiology Study observation (narrative) [facility] Work Phone: [phone] ECG 12 LeadOrdered By: Monse Piedra on 09-26-2023 Atrial Rate 96 BPM [facility] Work Phone: [phone] P Mallory 61 degrees [facility] Work Phone: [phone] P Offset 197 ms [facility] Work Phone: [phone] P Onset 133 ms [facility] Work Phone: [phone] VA Interval 156 ms [facility] Work Phone: [phone] Q Onset 211 ms [facility] Work Phone: [phone] QRS Count 16 beats [facility] Work Phone: [phone] QRS Duration 136 ms [facility] Work Phone: [phone] QT Interval 380 ms [facility] Work Phone: [phone] QTC Calculation(Bazett) 480 [facility] Work Phone: [phone] QTC Fredericia 444 [facility] Work Phone: [phone] R Mallory -49 degrees [facility] Work Phone: [phone] T Mallory 77 degrees [facility] Work Phone: [phone] T Offset 401 ms [facility] Work Phone: [phone] Ventricular Rate 96 BPM [facility] Work Phone: [facility] Work Phone: ECG 12 Leadon 09-26-2023 MUSE [facility] Work Phone: Magnesiumon 09-26-2023 Magnesium [Mass/Vol] 2.17 mg/dL 1.60 - 2.40 mg/dL [facility] Magnesium [Mass/Vol] 2.17 mg/dL Normal 1.60-2.40 [facility] Comment on above: Performed By: #### 2 341-6 #### BEVERLEY Poe ([id number]) [facility] ([facility]) [address] [place] [address] Magnesium [Mass/Vol]on 09-26 Interpretation and review of laboratory results Normal [facility] No Panel Informationon 09-26 [facility] Renal function 2000 panelon 09-26-2023 Albumin BCP dye [Mass/Vol] 2.8 g/dL Low 3.4 - 5.0 g/dL [facility] Anion gap [Moles/Vol] mmol/L Low 10 - 2 0 mmol/L [facility] Calcium [Mass/Vol] 8.6 mg/dL 8.6 - 10. 6 mg/dL [facility] Chloride [Moles/Vol] 101 mmol/L 98 - 10 7 mmol/L [facility] CO2 [Moles/Vol] 45 mmol/L Critically high 21 - 32 mmol/L [facility] Creatinine [Mass/Vol] 0.45 mg/dL Low 0.50 - 1.05 mg/dL [facility] GFR/1.73 sq M.predicted MDRD (S/P/Bld) [Vol rate/Area] - PINF [facility] Glucose [Mass/Vol] 111 mg/dL High 74 - 99 mg/dL [facility] Interpretation and review of laboratory results Abnormal [facility] Phosphate [Mass/Vol] 3.2 mg/dL 2.5 - 4 .9 mg/dL [facility] Potassium [Moles/Vol] 3.8 mmol/L 3.5 - 5.3 mmol/L [facility] Sodium [Moles/Vol] 147 mmol/L High 136 - 145 mmol/L [facility] Urea nitrogen [Mass/Vol] 16 mg/dL 6 - 23 mg/dL [facility] Albumin BCP dye [Mass/Vol] 2.8 g/dL Low 3.4-5.0 [facility] Comment on above: Performed By: #### 2 341-6 #### BEVERLEY Poe ([id number]) [facility] ([facility]) [address] [place] [address] Anion gap [Moles/Vol] mmol/L Low 10-20 [facility] Comment on above: Performed By: #### 2 341-6 #### BEVERLEY Poe ([id number]) [facility] ([facility]) [address] [place] [address] 99455 Calcium [Mass/Vol] 8.6 mg/dL Normal 8.6-10.6 [facility] Comment on above: Performed By: #### 2 341-6 #### BEVERLEY Poe ([id number]) [facility] ([facility]) [address] [place] [address] 21985 Chloride [Moles/Vol] 101 mmol/L Normal 98-107 [facility] Comment on above: Performed By: #### 2 341-6 #### BEVERLEY DODD L ([id number]) [facility] ([facility]) [address] [place] [address] 68156 CO2 [Moles/Vol] 45 mmol/L Critically high 21-32 [facility] Comment on above: Performed By: #### 2 341-6 #### BEVERLEY DODD L ([id number]) [facility] ([facility]) [address] [place] [address] 39693 Creatinine [Mass/Vol] 0.45 mg/dL Low 0.50-1.05 [facility] Comment on above: Performed By: #### 2 341-6 #### BEVERLEY Poe ([id number]) [facility] ([facility]) [address] [place] [address] GFR/1.73 sq M.predicted MDRD (S/P/Bld) [Vol rate/Area] mL/min/{1.73_m2} Normal >60 [facility] Comment on above: Result Comment: Calc ulations of estimated GFR are performed using the 2020 CKD-EPI Study Refit equation without the race variable for the IDMS-Traceable creatinine methods. https://jasn.asnjournals.org/content//ASN.20368 67807 Performed By: #### 2 341-6 #### BEVERLEY Poe ([id number]) [facility] ([facility]) [address] [place] [address] Glucose [Mass/Vol] 111 mg/dL High 74-99 [facility] Comment on above: Performed By: #### 2 341-6 #### BEVERLEY Poe ([id number]) [facility] ([facility]) [address] [place] [address] Phosphate [Mass/Vol] 3.2 mg/dL Normal 2.5-4.9 [facility] Comment on above: Result Comment: The performance characteristics of phosphorus testing in heparinized plasma have been validated by the individual laboratory site where testing is performed. Testing on heparinized plasma is not approved by the FDA; however, such approval is not necessary. Performed By: #### 2 341-6 #### BEVERLEY Poe ([id number]) [facility] ([facility]) [address] [place] [address] Potassium [Moles/Vol] 3.8 mmol/L Normal 3.5-5.3 [facility] Comment on above: Performed By: #### 2 341-6 #### BEVERLEY Poe ([id number]) [facility] ([facility]) [address] [place] [address] Sodium [Moles/Vol] 147 mmol/L High 136-145 [facility] Comment on above: Performed By: #### 2 341-6 #### BEVERLEY Poe ([id number]) [facility] ([facility]) [address] [place] [address] 29880 Urea nitrogen [Mass/Vol] 16 mg/dL Normal 6-23 [facility] Comment on above: Performed By: #### 2 341-6 #### BEVERLEY Poe ([id number]) [facility] ([facility]) [address] [place] [address] MR Pelvis WO and W contrast Jack 09-25-2023 [facility] MMODAL U[facility] MMODAL [facility] Work Phone: MR Pelvis WO and W contrast IVOrdered By: Clint Woods on 09-25-2023 [facility] Work Phone: CBC panel Auto (Bld)on 09-24 Erythrocyte distribution width (RBC) [Ratio] 14.5 % 11.5 - 14.5 % [facility] Hematocrit (Bld) [Volume fraction] 26.5 % Low 36.0 - 46.0 % [facility] Hemoglobin (Bld) [Mass/Vol] 7.8 g/dL Low 12.0 - 16.0 g/dL [facility] Interpretation and review of laboratory results Abnormal [facility] MCH (RBC) [Entitic mass] 29.1 pg 26.0 - 34.0 pg [facility] MCHC (RBC) [Mass/Vol] 29.4 g/dL Low 32.0 - 36.0 g/dL [facility] MCV (RBC) [Entitic vol] 99 fL 80 - 100 fL [facility] Nucleated RBC/100 WBC (Bld) [Ratio] 0.0 % [facility] Platelets (Bld) [#/Vol] 96 10*3/uL Low [facility] RBC (Bld) [#/Vol] 2.68 10*6/uL [facility] WBC (Bld) [#/Vol] 4.7 10*3/uL [facility] Erythrocyte distribution width (RBC) [Ratio] 14.5 % Normal 11.5-14.5 [facility] Comment on above: Performed By: #### 2 [id number] #### BEVERLEY Poe ([id number]) [facility] ([facility]) [id number] [place] [id number] Hematocrit (Bld) [Volume fraction] 26.5 % Low 36.0-46.0 [facility] [facility] Comment on above: Performed By: #### 2 341-6 #### BEVERLEY Poe ([id number]) [facility] ([facility]) [id number] [place] [address] 58903 Hemoglobin (Bld) [Mass/Vol] 7.8 g/dL Low 12.0-16.0 [facility] Comment on above: Performed By: #### 2 341-6 #### BEVERLEY Poe ([id number]) [facility] ([facility]) [address] [place] [address] 61573 MCH (RBC) [Entitic mass] 29.1 pg Normal 26.0-34.0 [facility] Comment on above: Performed By: #### 2 341-6 #### BEVERLEY Poe ([id number]) [facility] ([facility]) [address] [place] [address] 37792 MCHC (RBC) [Mass/Vol] 29.4 g/dL Low 32.0-36.0 [facility] Comment on above: Performed By: #### 2 341-6 #### BEVERLEY Poe ([id number]) [facility] ([facility]) [address] [place] [address] 74415 MCV (RBC) [Entitic vol] 99 fL Normal 80-100 [facility] Comment on above: Performed By: #### 2 341-6 #### BEVERLEY Poe ([id number]) [facility] ([facility]) [address] [place] [address] 97931 Nucleated RBC/100 WBC (Bld) [Ratio] 0.0 /100 WBCs Normal 0.0-0.0 [facility] Comment on above: Performed By: #### 2 341-6 #### BEVERLEY Poe ([id number]) [facility] ([facility]) [address] [place] [address] 91961 Platelets (Bld) [#/Vol] 96 x10*3/uL Low 150-450 [facility] Comment on above: Performed By: #### 2 341-6 #### BEVERLEY Poe ([id number]) [facility] ([facility]) [id number] [place] [address] 26386 RBC (Bld) [#/Vol] 2.68 x10*6/uL Low 4.00-5.20 [facility] Comment on above: Performed By: #### 2 341-6 #### BEVERLEY Poe ([id number]) [facility] ([facility]) [address] [place] [address] 59521 WBC (Bld) [#/Vol] 4.7 x10*3/uL Normal 4.4-11.3 [facility] Comment on above: Performed By: #### 2 341-6 #### BEVERLEY Poe ([id number]) [facility] ([facility]) [address] [place] [address] 97978 Glucose Test strip manual (B ld) [Mass/Vol]on 09-24-2023 Glucose [Mass/Vol] 135 mg/dL High 74 - 99 mg/dL [facility] Interpretation and review of laboratory results Abnormal [facility] Magnesiumon 09-24-2023 Magnesium [Mass/Vol] 2.01 mg/dL 1.60 - 2.40 mg/dL [facility] Magnesium [Mass/Vol] 2.01 mg/dL Normal 1.60-2.40 [facility] Comment on above: Performed By: #### 2 341-6 #### BEVERLEY Poe ([id number]) [facility] ([facility]) [address] [place] [address] 34863 Magnesium [Mass/Vol]on 09-24 Interpretation and review of laboratory results Normal [facility] No Panel Informationon 09-24 [facility] Renal function 2000 panelon 09-24-2023 Albumin BCP dye [Mass/Vol] 2.8 g/dL Low 3.4 - 5.0 g/dL [facility] Anion gap [Moles/Vol] 10 mmol/L 10 - 2 0 mmol/L [facility] Calcium [Mass/Vol] 8.4 mg/dL Low 8.6 - 10. 6 mg/dL [facility] Chloride [Moles/Vol] 98 mmol/L 98 - 10 7 mmol/L [facility] CO2 [Moles/Vol] 42 mmol/L Critically high 21 - 32 mmol/L [facility] Creatinine [Mass/Vol] 0.42 mg/dL Low 0.50 - 1.05 mg/dL [facility] GFR/1.73 sq M.predicted MDRD (S/P/Bld) [Vol rate/Area] - PINF [facility] Glucose [Mass/Vol] 140 mg/dL High 74 - 99 mg/dL [facility] Interpretation and review of laboratory results Abnormal [facility] Phosphate [Mass/Vol] 3.3 mg/dL 2.5 - 4 .9 mg/dL [facility] Potassium [Moles/Vol] 4.0 mmol/L 3.5 - 5.3 mmol/L [facility] Sodium [Moles/Vol] 146 mmol/L High 136 - 145 mmol/L [facility] Urea nitrogen [Mass/Vol] 10 mg/dL 6 - 23 mg/dL [facility] Albumin BCP dye [Mass/Vol] 2.8 g/dL Low 3.4-5.0 [facility] Comment on above: Performed By: #### 2 341-6 #### BEVERLEY Poe ([id number]) [facility] ([facility]) [address] [place] [address] 95953 Anion gap [Moles/Vol] 10 mmol/L Normal 10-20 [facility] Comment on above: Performed By: #### 2 341-6 #### BEVERLEY Poe ([id number]) [facility] ([facility]) [address] [place] [address] 30698 Calcium [Mass/Vol] 8.4 mg/dL Low 8.6-10.6 [facility] Comment on above: Performed By: #### 2 341-6 #### BEVERLEY Poe ([id number]) [facility] ([facility]) [address] [place] [address] Chloride [Moles/Vol] 98 mmol/L Normal 98-107 [facility] Comment on above: Performed By: #### 2 341-6 #### BEVERLEY CARSONER L ([id number]) [facility] ([facility]) [address] [place] [address] CO2 [Moles/Vol] 42 mmol/L Critically high 21-32 [facility] Comment on above: Performed By: #### 2 341-6 #### BEVERLEY DODD L ([id number]) [facility] ([facility]) [address] [place] [address] Creatinine [Mass/Vol] 0.42 mg/dL Low 0.50-1.05 [facility] Comment on above: Performed By: #### 2 341-6 #### BEVERLEY Poe ([id number]) [facility] ([facility]) [address] [place] [address] GFR/1.73 sq M.predicted MDRD (S/P/Bld) [Vol rate/Area] mL/min/{1.73_m2} Normal >60 [facility] Comment on above: Result Comment: Calc ulations of estimated GFR are performed using the 2020 CKD-EPI Study Refit equation without the race variable for the IDMS-Traceable creatinine methods. https://jasn.asnjournals.org/content//ASN.48553 29139 Performed By: #### 2 341-6 #### BEVERLEY DODD L ([id number]) [facility] ([facility]) [address] [place] [address] Glucose [Mass/Vol] 140 mg/dL High 74-99 [facility] Comment on above: Performed By: #### 2 341-6 #### BEVERLEY DODD L ([id number]) [facility] ([facility]) [address] [place] [address] Phosphate [Mass/Vol] 3.3 mg/dL Normal 2.5-4.9 [facility] Comment on above: Result Comment: The performance characteristics of phosphorus testing in heparinized plasma have been validated by the individual laboratory site where testing is performed. Testing on heparinized plasma is not approved by the FDA; however, such approval is not necessary. Performed By: #### 2 341-6 #### BEVERLEY Poe ([id number]) [facility] ([facility]) [address] [place] [address] Potassium [Moles/Vol] 4.0 mmol/L Normal 3.5-5.3 [facility] Comment on above: Performed By: #### 2 341-6 #### BEVERLEY Poe ([id number]) [facility] ([facility]) [address] [place] [address] 66169 Sodium [Moles/Vol] 146 mmol/L High 136-145 [facility] Comment on above: Performed By: #### 2 341-6 #### BEVERLEY Poe ([id number]) [facility] ([facility]) [address] [place] [address] 85826 Urea nitrogen [Mass/Vol] 10 mg/dL Normal 6-23 [facility] Comment on above: Performed By: #### 2 341-6 #### BEVERLEY Poe ([id number]) [facility] ([facility]) [address] [place] [address] 07653 CBC panel Auto (Bld)on 09-23 Erythrocyte distribution width (RBC) [Ratio] 14.4 % 11.5 - 14.5 % [facility] Hematocrit (Bld) [Volume fraction] 26.9 % Low 36.0 - 46.0 % [facility] Hemoglobin (Bld) [Mass/Vol] 7.7 g/dL Low 12.0 - 16.0 g/dL [facility] Interpretation and review of laboratory results Abnormal [facility] MCH (RBC) [Entitic mass] 29.8 pg 26.0 - 34.0 pg [facility] MCHC (RBC) [Mass/Vol] 28.6 g/dL Low 32.0 - 36.0 g/dL [facility] MCV (RBC) [Entitic vol] 104 fL High 80 - 100 fL [facility] Nucleated RBC/100 WBC (Bld) [Ratio] 0.0 % [facility] Platelets (Bld) [#/Vol] 93 10*3/uL Low [facility] RBC (Bld) [#/Vol] 2.58 10*6/uL [facility] WBC (Bld) [#/Vol] 4.9 10*3/uL [facility] Erythrocyte distribution width (RBC) [Ratio] 14.4 % Normal 11.5-14.5 [facility] Comment on above: Performed By: #### 2 341-6 #### BEVERLEY Poe ([id number]) [facility] ([facility]) [address] [place] [address] 02464 Hematocrit (Bld) [Volume fraction] 26.9 % Low 36.0-46.0 [facility] Comment on above: Performed By: #### 2 341-6 #### BEVERLEY Poe ([id number]) [facility] ([facility]) [address] [place] [address] 05853 Hemoglobin (Bld) [Mass/Vol] 7.7 g/dL Low 12.0-16.0 [facility] Comment on above: Performed By: #### 2 341-6 #### BEVERLEY Poe ([id number]) [facility] ([facility]) [address] [place] [address] 38622 MCH (RBC) [Entitic mass] 29.8 pg Normal 26.0-34.0 [facility] Comment on above: Performed By: #### 2 341-6 #### BEVERLEY Poe ([id number]) [facility] ([facility]) [address] [place] [address] 18992 MCHC (RBC) [Mass/Vol] 28.6 g/dL Low 32.0-36.0 [facility] Comment on above: Performed By: #### 2 341-6 #### BEVERLEY Poe ([id number]) [facility] ([facility]) [address] [place] [address] MCV (RBC) [Entitic vol] 104 fL High 80-100 [facility] Comment on above: Performed By: #### 2 341-6 #### BEVERLEY Poe ([id number]) [facility] ([facility]) [address] [place] [address] 40633 Nucleated RBC/100 WBC (Bld) [Ratio] 0.0 /100 WBCs Normal 0.0-0.0 [facility] Comment on above: Performed By: #### 2 341-6 #### BEVERLEY Poe ([id number]) [facility] ([facility]) [address] [place] [address] 26078 Platelets (Bld) [#/Vol] 93 x10*3/uL Low 150-450 [facility] Comment on above: Performed By: #### 2 341-6 #### BEVERLEY Poe ([id number]) [facility] ([facility]) [address] [place] [address] 61805 RBC (Bld) [#/Vol] 2.58 x10*6/uL Low 4.00-5.20 [facility] Comment on above: Performed By: #### 2 341-6 #### BEVERLEY Poe ([id number]) [facility] ([facility]) [address] [place] [address] 82304 WBC (Bld) [#/Vol] 4.9 x10*3/uL Normal 4.4-11.3 [facility] Comment on above: Performed By: #### 2 341-6 #### BEVERLEY Poe ([id number]) [facility] ([facility]) [address] [place] [address] ANGIO CORONARY ART WITH H EARTFLOW IF SCORE >30%on 09-23-2023 CT ANGIO CORONARY ART WITH HEARTFLOW IF SCORE >30% Interpreted By: Yair Pham and Hima Mccarty STUDY: CT ANGIO CORONARY ART WITH HEARTFLOW IF SCORE >30%; 09/26/2023 1:38 pm INDICATION: Signs/Symptoms:Reduced EF; Pre Op optimization. COMPARISON: None. ACCESSION NUMBER(S): [id number] ORDERING CLINICIAN: KANG JULIAN TECHNIQUE: Using multi-detector [...] Yair Pham 09/28/2023 11:26 AM Dictation workstation: [id number] [facility] Carcinoembryonic Agon 2022 Carcinoembryonic Ag [Mass/Vol] ng/mL [facility] Comment on above: Order Comment: REF V ALUES NONSMOKERS 0-2.5 SMOKERS 0-5.0CEA testing is performed by chemiluminescent immunoassay using the Siemens Ancestry. Values obtained with different analytic methods cannot [...] #### 2 341-6 #### BEVERLEY Poe ([id number]) [facility] ([facility]) [address] [place] [address] 27862 Carcinoembryonic Ag [Mass/Vo l]on 09-23-2023 [facility] Carcinoembryonic Antigenon 1 11-23-2022 Carcinoembryonic Ag [Mass/Vol] ug/L ug/L [facility] Glucose Test strip manual (B ld) [Mass/Vol]on 09-23-2023 Glucose [Mass/Vol] 146 mg/dL High 74 - 99 mg/dL [facility] Interpretation and review of laboratory results Abnormal [facility] Glucose [Mass/Vol] 146 mg/dL High 74-99 [facility] Comment on above: Performed By: #### 2 341-6 #### BEVERLEY Poe ([id number]) [facility] ([facility]) [address] [place] [address] 14056 Glucose [Mass/Vol] 161 mg/dL High 74 - 99 mg/dL [facility] Interpretation and review of laboratory results Abnormal [facility] Glucose [Mass/Vol] 161 mg/dL High 74-99 [facility] Comment on above: Performed By: #### 2 341-6 #### BEVERLEY Poe ([id number]) [facility] ([facility]) [address] [place] [address] 71831 Magnesiumon 09-23-2023 Magnesium [Mass/Vol] 2.04 mg/dL 1.60 - 2.40 mg/dL [facility] Magnesium [Mass/Vol] 2.04 mg/dL Normal 1.60-2.40 [facility] Comment on above: Performed By: #### 2 341-6 #### BEVERLEY Poe ([id number]) [facility] ([facility]) [address] [place], [place] [address] Magnesium [Mass/Vol]on 09-23 Interpretation and review of laboratory results Normal [facility] No Panel Informationon 09-23 [facility] Renal function 2000 panelon 09-23-2023 Albumin BCP dye [Mass/Vol] 2.9 g/dL Low 3.4 - 5.0 g/dL [facility] Anion gap [Moles/Vol] 8 mmol/L Low 10 - 2 0 mmol/L [facility] Calcium [Mass/Vol] 8.7 mg/dL 8.6 - 10. 6 mg/dL [facility] Chloride [Moles/Vol] 100 mmol/L 98 - 10 7 mmol/L [facility] CO2 [Moles/Vol] 40 mmol/L Critically high 21 - 32 mmol/L [facility] Creatinine [Mass/Vol] 0.42 mg/dL Low 0.50 - 1.05 mg/dL [facility] GFR/1.73 sq M.predicted MDRD (S/P/Bld) [Vol rate/Area] - PINF [facility] Glucose [Mass/Vol] 123 mg/dL High 74 - 99 mg/dL [facility] Interpretation and review of laboratory results Abnormal [facility] Phosphate [Mass/Vol] 3.0 mg/dL 2.5 - 4 .9 mg/dL [facility] Potassium [Moles/Vol] 4.0 mmol/L 3.5 - 5.3 mmol/L [facility] Sodium [Moles/Vol] 144 mmol/L 136 - 145 mmol/L [facility] Urea nitrogen [Mass/Vol] 13 mg/dL 6 - 23 mg/dL [facility] Albumin BCP dye [Mass/Vol] 2.9 g/dL Low 3.4-5.0 [facility] Comment on above: Performed By: #### 2 341-6 #### BEVERLEY Poe ([id number]) [facility] ([facility]) [address] [place] [address] Anion gap [Moles/Vol] 8 mmol/L Low 10-20 [facility] Comment on above: Performed By: #### 2 341-6 #### BEVERLEY DODD L ([id number]) [facility] ([facility]) [address] [place] [address] Calcium [Mass/Vol] 8.7 mg/dL Normal 8.6-10.6 [facility] Comment on above: Performed By: #### 2 341-6 #### BEVERLEY DODD L ([id number]) [facility] ([facility]) [address] [place] [address] 91045 Chloride [Moles/Vol] 100 mmol/L Normal 98-107 [facility] Comment on above: Performed By: #### 2 341-6 #### BEVERLEY DODD L ([id number]) [facility] ([facility]) [address] [place] [address] 76085 CO2 [Moles/Vol] 40 mmol/L Critically high 21-32 [facility] Comment on above: Performed By: #### 2 341-6 #### BEVERLEY DODD L ([id number]) [facility] ([facility]) [address] [place] [address] Creatinine [Mass/Vol] 0.42 mg/dL Low 0.50-1.05 [facility] Comment on above: Performed By: #### 2 341-6 #### BEVERLEY DODD L ([id number]) [facility] ([facility]) [address] [place] [address] GFR/1.73 sq M.predicted MDRD (S/P/Bld) [Vol rate/Area] mL/min/{1.73_m2} Normal >60 [facility] Comment on above: Result Comment: Calc ulations of estimated GFR are performed using the 2020 CKD-EPI Study Refit equation without the race variable for the IDMS-Traceable creatinine methods. https://jasn.asnjournals.org/content//ASN.45107 80343 Performed By: #### 2 341-6 #### BEVERLEY Poe ([id number]) [facility] ([facility]) [address] [place] [address] Glucose [Mass/Vol] 123 mg/dL High 74-99 [facility] Comment on above: Performed By: #### 2 341-6 #### BEVERLEY Poe ([id number]) [facility] ([facility]) [address] [place] [address] Phosphate [Mass/Vol] 3.0 mg/dL Normal 2.5-4.9 [facility] Comment on above: Result Comment: The performance characteristics of phosphorus testing in heparinized plasma have been validated by the individual laboratory site where testing is performed. Testing on heparinized plasma is not approved by the FDA; however, such approval is not necessary. Performed By: #### 2 341-6 #### BEVERLEY Poe ([id number]) [facility] ([facility]) [address] [place] [address] Potassium [Moles/Vol] 4.0 mmol/L Normal 3.5-5.3 [facility] Comment on above: Performed By: #### 2 341-6 #### BEVERLEY Poe ([id number]) [facility] ([facility]) [address] [place] [address] 96626 Sodium [Moles/Vol] 144 mmol/L Normal 136-145 [facility] Comment on above: Performed By: #### 2 341-6 #### BEVERLEY Poe ([id number]) [facility] ([facility]) [address] [place] [address] Urea nitrogen [Mass/Vol] 13 mg/dL Normal 6-23 [facility] Comment on above: Performed By: #### 2 341-6 #### BEVERLEY Poe ([id number]) [facility] ([facility]) [address] [place] [address] Bacteria identified Cx Nom ( U)Ordered By: Rakesh Srivastava on 09-22-2023 Interpretation and review of laboratory results Abnormal [facility] CBC panel Auto (Bld)on 09-22 Erythrocyte distribution width (RBC) [Ratio] 14.6 % High 11.5 - 14.5 % [facility] Hematocrit (Bld) [Volume fraction] 27.9 % Low 36.0 - 46.0 % [facility] Hemoglobin (Bld) [Mass/Vol] 8.0 g/dL Low 12.0 - 16.0 g/dL [facility] Interpretation and review of laboratory results Abnormal [facility] MCH (RBC) [Entitic mass] 29.9 pg 26.0 - 34.0 pg [facility] MCHC (RBC) [Mass/Vol] 28.7 g/dL Low 32.0 - 36.0 g/dL [facility] MCV (RBC) [Entitic vol] 104 fL High 80 - 100 fL [facility] Nucleated RBC/100 WBC (Bld) [Ratio] 0.0 % [facility] Platelets (Bld) [#/Vol] 99 10*3/uL Low [facility] RBC (Bld) [#/Vol] 2.68 10*6/uL [facility] WBC (Bld) [#/Vol] 4.7 10*3/uL [facility] Erythrocyte distribution width (RBC) [Ratio] 14.6 % High 11.5-14.5 [facility] Comment on above: Performed By: #### 3 4532-2 #### BEVERLEY Poe ([id number]) [facility] ([facility]) [address] [place] [address] Hematocrit (Bld) [Volume fraction] 27.9 % Low 36.0-46.0 [facility] Comment on above: Performed By: #### 3 4532-2 #### BEVERLEY Poe ([id number]) [facility] ([facility]) [address] [place] [address] Hemoglobin (Bld) [Mass/Vol] 8.0 g/dL Low 12.0-16.0 [facility] Comment on above: Performed By: #### 3 4531-2 #### BEVERLEY Poe ([id number]) [facility] ([facility]) [address] [place] [address] MCH (RBC) [Entitic mass] 29.9 pg Normal 26.0-34.0 [facility] Comment on above: Performed By: #### 3 4531-2 #### BEVERLEY Poe ([id number]) [facility] ([facility]) [address] [place] [address] MCHC (RBC) [Mass/Vol] 28.7 g/dL Low 32.0-36.0 [facility] Comment on above: Performed By: #### 3 4531-2 #### BEVERLEY Poe ([id number]) [facility] ([facility]) [address] [place] [address] MCV (RBC) [Entitic vol] 104 fL High 80-100 [facility] Comment on above: Performed By: #### 3 4531-2 #### BEVERLEY Poe ([id number]) [facility] ([facility]) [address] [place] [address] Nucleated RBC/100 WBC (Bld) [Ratio] 0.0 /100 WBCs Normal 0.0-0.0 [facility] Comment on above: Performed By: #### 3 4531-2 #### BEVERLEY Poe ([id number]) [facility] ([facility]) [address] [place] [address] Platelets (Bld) [#/Vol] 99 x10*3/uL Low 150-450 [facility] Comment on above: Performed By: #### 3 4531-2 #### BEVERLEY Poe ([id number]) [facility] ([facility]) [address] [place] [address] RBC (Bld) [#/Vol] 2.68 x10*6/uL Low 4.00-5.20 [facility] Comment on above: Performed By: #### 3 4532-2 #### BEVERLEY Poe ([id number]) [facility] ([facility]) [address] [place] [address] WBC (Bld) [#/Vol] 4.7 x10*3/uL Normal 4.4-11.3 [facility] Comment on above: Performed By: #### 3 4532-2 #### BEVERLEY Poe ([id number]) [facility] ([facility]) [address] [place] [address] Glucose Test strip manual (B ld) [Mass/Vol]on 09-22-2023 Glucose [Mass/Vol] 160 mg/dL High 74 - 99 mg/dL [facility] Interpretation and review of laboratory results Abnormal [facility] Glucose [Mass/Vol] 160 mg/dL High 74-99 [facility] Comment on above: Performed By: #### 2 341-6 #### BEVERLEY Poe ([id number]) [facility] ([facility]) [address] [place] [address]29 Glucose [Mass/Vol] 174 mg/dL High 74 - 99 mg/dL [facility] Interpretation and review of laboratory results Abnormal [facility] Glucose [Mass/Vol] 174 mg/dL High 74-99 [facility] Comment on above: Performed By: #### 2 341-6 #### BEVERLEY Poe ([id number]) [facility] ([facility]) [address] [place] [id number] Glucose [Mass/Vol] 135 mg/dL High 74-99 [facility] Comment on above: Performed By: #### 2 341-6 #### BEVERLEY Poe ([id number]) [facility] ([facility]) [address] [place] [id number] Glucose [Mass/Vol] 148 mg/dL High 74 - 99 mg/dL [facility] Interpretation and review of laboratory results Abnormal [facility] Glucose [Mass/Vol] 148 mg/dL High 74-99 [facility] Comment on above: Performed By: #### 3 4532-2 #### BEVERLEY Poe ([id number]) [facility] ([facility]) [address] [place] [address] Magnesiumon 09-22-2023 Magnesium [Mass/Vol] 2.07 mg/dL 1.60 - 2.40 mg/dL [facility] Magnesium [Mass/Vol] 2.07 mg/dL Normal 1.60-2.40 [facility] Comment on above: Performed By: #### 3 4532-2 #### BEVERLEY Poe ([id number]) [facility] ([facility]) [address] [place] [address] Magnesium [Mass/Vol]on 09-22 Interpretation and review of laboratory results Normal [facility] No Panel Informationon 09-22 [facility] Renal function 2000 panelon 09-22-2023 Albumin BCP dye [Mass/Vol] 2.7 g/dL Low 3.4 - 5.0 g/dL [facility] Anion gap [Moles/Vol] 11 mmol/L 10 - 2 0 mmol/L [facility] Calcium [Mass/Vol] 8.3 mg/dL Low 8.6 - 10. 6 mg/dL [facility] Chloride [Moles/Vol] 101 mmol/L 98 - 10 7 mmol/L [facility] CO2 [Moles/Vol] 38 mmol/L High 21 - 32 mmol/L [facility] [facility] Creatinine [Mass/Vol] 0.42 mg/dL Low 0.50 - 1.05 mg/dL [facility] GFR/1.73 sq M.predicted MDRD (S/P/Bld) [Vol rate/Area] - PINF [facility] Glucose [Mass/Vol] 134 mg/dL High 74 - 99 mg/dL [facility] Interpretation and review of laboratory results Abnormal [facility] Phosphate [Mass/Vol] 3.4 mg/dL 2.5 - 4 .9 mg/dL [facility] Potassium [Moles/Vol] 4.0 mmol/L 3.5 - 5.3 mmol/L [facility] Sodium [Moles/Vol] 146 mmol/L High 136 - 145 mmol/L [facility] Urea nitrogen [Mass/Vol] 15 mg/dL 6 - 23 mg/dL [facility] Albumin BCP dye [Mass/Vol] 2.7 g/dL Low 3.4-5.0 [facility] Comment on above: Performed By: #### 3 4531-2 #### BEVERLEY Poe ([id number]) [facility] ([facility]) [address] [place] [address] Anion gap [Moles/Vol] 11 mmol/L Normal 10-20 [facility] Comment on above: Performed By: #### 3 4531-2 #### BEVERLEY Poe ([id number]) [facility] ([facility]) [address] [place] [address] Calcium [Mass/Vol] 8.3 mg/dL Low 8.6-10.6 [facility] Comment on above: Performed By: #### 3 4531-2 #### BEVERLEY Poe ([id number]) [facility] ([facility]) [address] [place] [address] Chloride [Moles/Vol] 101 mmol/L Normal 98-107 [facility] Comment on above: Performed By: #### 3 4531-2 #### BEVERLEY Poe ([id number]) [facility] ([facility]) [address] [place] [address] CO2 [Moles/Vol] 38 mmol/L High 21-32 [facility] Comment on above: Performed By: #### 3 4531-2 #### BEVERLEY Poe ([id number]) [facility] ([facility]) [address] [place] [address] Creatinine [Mass/Vol] 0.42 mg/dL Low 0.50-1.05 [facility] Comment on above: Performed By: #### 3 4531-2 #### BEVERLEY Poe ([id number]) [facility] ([facility]) [address] [place] [address] GFR/1.73 sq M.predicted MDRD (S/P/Bld) [Vol rate/Area] mL/min/{1.73_m2} Normal >60 [facility] Comment on above: Result Comment: Calc ulations of estimated GFR are performed using the 2020 CKD-EPI Study Refit equation without the race variable for the IDMS-Traceable creatinine methods. https://jasn.asnjournals.org/content/early//ASN.24282 94790 Performed By: #### 3 4532-2 #### BEVERLEY Poe ([id number]) [facility] ([facility]) [address] [place] [address] Glucose [Mass/Vol] 134 mg/dL High 74-99 [facility] Comment on above: Performed By: #### 3 4532-2 #### BEVERLEY Poe ([id number]) [facility] ([facility]) [address] [place] [address] Phosphate [Mass/Vol] 3.4 mg/dL Normal 2.5-4.9 [facility] Comment on above: Result Comment: The performance characteristics of phosphorus testing in heparinized plasma have been validated by the individual laboratory site where testing is performed. Testing on heparinized plasma is not approved by the FDA; however, such approval is not necessary. Performed By: #### 3 4532-2 #### BEVERLEY Poe ([id number]) [facility] ([facility]) [address] [place] [address] Potassium [Moles/Vol] 4.0 mmol/L Normal 3.5-5.3 [facility] Comment on above: Performed By: #### 3 4532-2 #### BEVERLEY Poe ([id number]) [facility] ([facility]) [address] [place] [address] Sodium [Moles/Vol] 146 mmol/L High 136-145 [facility] Comment on above: Performed By: #### 3 4532-2 #### BEVERLEY Poe ([id number]) [facility] ([facility]) [address] [place] [address] Urea nitrogen [Mass/Vol] 15 mg/dL Normal 6-23 [facility] Comment on above: Performed By: #### 3 4532-2 #### BEVERLEY Poe ([id number]) [facility] ([facility]) [address] [place] [address] Urine cultureOrdered By: Kel Srivastava on 09-22-2023 Bacteria identified Cx Nom (U) >100,000 Enterococcus faecium Abnormal [facility] CBC panel Auto (Bld)on 09-21 Erythrocyte distribution width (RBC) [Ratio] 14.4 % 11.5 - 14.5 % [facility] Hematocrit (Bld) [Volume fraction] 25.6 % Low 36.0 - 46.0 % [facility] Hemoglobin (Bld) [Mass/Vol] 8.0 g/dL Low 12.0 - 16.0 g/dL [facility] Interpretation and review of laboratory results Abnormal [facility] MCH (RBC) [Entitic mass] 30.5 pg 26.0 - 34.0 pg [facility] MCHC (RBC) [Mass/Vol] 31.3 g/dL Low 32.0 - 36.0 g/dL [facility] MCV (RBC) [Entitic vol] 98 fL 80 - 100 fL [facility] Nucleated RBC/100 WBC (Bld) [Ratio] 0.0 % [facility] Platelets (Bld) [#/Vol] 88 10*3/uL Low [facility] RBC (Bld) [#/Vol] 2.62 10*6/uL [facility] WBC (Bld) [#/Vol] 5.0 10*3/uL [facility] Erythrocyte distribution width (RBC) [Ratio] 14.4 % Normal 11.5-14.5 [facility] Comment on above: Performed By: #### 2 341-6 #### BEVERLEY Poe ([id number]) [facility] ([facility]) [id number] [place] [address] Hematocrit (Bld) [Volume fraction] 25.6 % Low 36.0-46.0 [facility] Comment on above: Performed By: #### 2 341-6 #### BEVERLEY Poe ([id number]) [facility] ([facility]) [address] [place] [address] Hemoglobin (Bld) [Mass/Vol] 8.0 g/dL Low 12.0-16.0 [facility] Comment on above: Performed By: #### 2 341-6 #### BEVERLEY Poe ([id number]) [facility] ([facility]) [address] [place] [address] MCH (RBC) [Entitic mass] 30.5 pg Normal 26.0-34.0 [facility] Comment on above: Performed By: #### 2 341-6 #### BEVERLEY Poe ([id number]) [facility] ([facility]) [address] [place] [address]26[address] MCHC (RBC) [Mass/Vol] 31.3 g/dL Low 32.0-36.0 [facility] Comment on above: Performed By: #### 2 341-6 #### BEVERLEY Poe ([id number]) [facility] ([facility]) [address] [place] [address]12[address] MCV (RBC) [Entitic vol] 98 fL Normal 80-100 [facility] Comment on above: Performed By: #### 2 341-6 #### BEVERLEY Poe ([id number]) [facility] ([facility]) [address] [place] [address] 89472 Nucleated RBC/100 WBC (Bld) [Ratio] 0.0 /100 WBCs Normal 0.0-0.0 [facility] Comment on above: Performed By: #### 2 341-6 #### BEVERLEY Poe ([id number]) [facility] ([facility]) [address] [place] [address] Platelets (Bld) [#/Vol] 88 x10*3/uL Low 150-450 [facility] Comment on above: Performed By: #### 2 341-6 #### BEVERLEY Poe ([id number]) [facility] ([facility]) [address] [place] [address] 22164 RBC (Bld) [#/Vol] 2.62 x10*6/uL Low 4.00-5.20 [facility] Comment on above: Performed By: #### 2 341-6 #### BEVERLEY Poe ([id number]) [facility] ([facility]) [address] [place] [address] 42162 WBC (Bld) [#/Vol] 5.0 x10*3/uL Normal 4.4-11.3 [facility] Comment on above: Performed By: #### 2 341-6 #### BEVERLEY Poe ([id number]) [facility] ([facility]) [address] [place] [address] 20078 Cancer Ag 125 Qnon 3 Interpretation and review of laboratory results Normal [facility] Cancer Antigen 125on 023 Cancer Ag 125 Qn 22.0 [arb'U]/mL 0.0 - 30 .2 U/mL [facility] Glucose Test strip manual (B ld) [Mass/Vol]on 09-21-2023 Glucose [Mass/Vol] 189 mg/dL High 74 - 99 mg/dL [facility] Interpretation and review of laboratory results Abnormal [facility] Glucose [Mass/Vol] 189 mg/dL High 74-99 [facility] Comment on above: Performed By: #### 3 4532-2 #### BEVERLEY Poe ([id number]) [facility] ([facility]) [address] [place] [address] Glucose [Mass/Vol] 120 mg/dL High 74 - 99 mg/dL [facility] Interpretation and review of laboratory results Abnormal [facility] Glucose [Mass/Vol] 120 mg/dL High 74-99 [facility] Comment on above: Performed By: #### 3 4532-2 #### BEVERLEY Poe ([id number]) [facility] ([facility]) [address] [place] [address] Glucose [Mass/Vol] 162 mg/dL High 74 - 99 mg/dL [facility] Interpretation and review of laboratory results Abnormal [facility] Glucose [Mass/Vol] 162 mg/dL High 74-99 [facility] Comment on above: Performed By: #### 3 4532-2 #### BEVERLEY Poe ([id number]) [facility] ([facility]) [address] [place] [address] Glucose [Mass/Vol] 134 mg/dL High 74 - 99 mg/dL [facility] Interpretation and review of laboratory results Abnormal [facility] Glucose [Mass/Vol] 134 mg/dL High 74-99 [facility] Comment on above: Performed By: #### 2 341-6 #### BEVERLEY Poe ([id number]) [facility] ([facility]) [address] [place] [address]271 Glucose [Mass/Vol] 136 mg/dL High 74 - 99 mg/dL [facility] Interpretation and review of laboratory results Abnormal [facility] Glucose [Mass/Vol] 136 mg/dL High 74-99 [facility] Comment on above: Performed By: #### 2 341-6 #### BEVERLEY Poe ([id number]) [facility] ([facility]) [address] [place] [address]47[address] Glucose [Mass/Vol] 123 mg/dL High 74 - 99 mg/dL [facility] Interpretation and review of laboratory results Abnormal [facility] Glucose [Mass/Vol] 123 mg/dL High 74-99 [facility] Comment on above: Performed By: #### 2 341-6 #### BEVERLEY Poe ([id number]) [facility] ([facility]) [address] [place] [id number] MR PELVIS W AND WO IV TI [...] colovesical colovaginal fistula. COMPARISON: None ACCESSION NUMBER(S): [id number] ORDERING CLINICIAN: KANG JULIAN TECHNIQUE: Multiplanar MRI [...] Cristina MD. This study was interpreted at [place], [place]. MACRO: None Signed by: Clint Woods 09/25/2023 3:47 PM Dictation workstation: [id number] Normal [facility] MR Pelvis WO and W contrast Jack 09-21-2023 Radiology Study observation (narrative) [facility] Work Phone: Magnesiumon 09-21-2023 Magnesium [Mass/Vol] 2.05 mg/dL 1.60 - 2.40 mg/dL [facility] Magnesium [Mass/Vol] 2.05 mg/dL Normal 1.60-2.40 [facility] Comment on above: Performed By: #### 2 341-6 #### BEVERLEY Poe ([id number]) [facility] ([facility]) [address] [place] [address] Magnesium [Mass/Vol]on 09-21 Interpretation and review of laboratory results Normal [facility] No Panel Informationon 09-21 [facility] Renal function 2000 panelon 09-21-2023 Albumin BCP dye [Mass/Vol] 2.7 g/dL Low 3.4 - 5.0 g/dL [facility] Anion gap [Moles/Vol] 8 mmol/L Low 10 - 2 0 mmol/L [facility] Calcium [Mass/Vol] 8.3 mg/dL Low 8.6 - 10. 6 mg/dL [facility] Chloride [Moles/Vol] 101 mmol/L 98 - 10 7 mmol/L [facility] CO2 [Moles/Vol] 41 mmol/L Critically high 21 - 32 mmol/L [facility] Creatinine [Mass/Vol] 0.45 mg/dL Low 0.50 - 1.05 mg/dL [facility] GFR/1.73 sq M.predicted MDRD (S/P/Bld) [Vol rate/Area] - PINF [facility] Glucose [Mass/Vol] 140 mg/dL High 74 - 99 mg/dL [facility] Interpretation and review of laboratory results Abnormal [facility] Phosphate [Mass/Vol] 3.4 mg/dL 2.5 - 4 .9 mg/dL [facility] Potassium [Moles/Vol] 3.8 mmol/L 3.5 - 5.3 mmol/L [facility] Sodium [Moles/Vol] 146 mmol/L High 136 - 145 mmol/L [facility] Urea nitrogen [Mass/Vol] 12 mg/dL 6 - 23 mg/dL [facility] Albumin BCP dye [Mass/Vol] 2.7 g/dL Low 3.4-5.0 [facility] Comment on above: Performed By: #### 3 4532-2 #### BEVERLEY Poe ([id number]) [facility] ([facility]) [address] [place] [address] Anion gap [Moles/Vol] 8 mmol/L Low 10-20 [facility] Comment on above: Performed By: #### 3 4532-2 #### BEVERLEY Poe ([id number]) [facility] ([facility]) [address] [place] [address] Calcium [Mass/Vol] 8.3 mg/dL Low 8.6-10.6 [facility] Comment on above: Performed By: #### 3 4532-2 #### BEVERLEY Poe ([id number]) [facility] ([facility]) [address] [place] [address] Chloride [Moles/Vol] 101 mmol/L Normal 98-107 [facility] Comment on above: Performed By: #### 3 4532-2 #### BEVERLEY Poe ([id number]) [facility] ([facility]) [address] [place] [address] CO2 [Moles/Vol] 41 mmol/L Critically high 21-32 [facility] Comment on above: Performed By: #### 3 4532-2 #### BEVERLEY Poe ([id number]) [facility] ([facility]) [address] [place] [address] Creatinine [Mass/Vol] 0.45 mg/dL Low 0.50-1.05 [facility] Comment on above: Performed By: #### 3 4532-2 #### BEVERLEY Poe ([id number]) [facility] ([facility]) [address] [place] [address] GFR/1.73 sq M.predicted MDRD (S/P/Bld) [Vol rate/Area] mL/min/{1.73_m2} Normal >60 [facility] Comment on above: Result Comment: Calc ulations of estimated GFR are performed using the 2020 CKD-EPI Study Refit equation without the race variable for the IDMS-Traceable creatinine methods. https://jasn.asnjournals.org/content//ASN.38346 54995 Performed By: #### 3 4532-2 #### BEVERLEY Poe ([id number]) [facility] ([facility]) [address] [place] [address] Glucose [Mass/Vol] 140 mg/dL High 74-99 [facility] Comment on above: Performed By: #### 3 4532-2 #### BEVERLEY Poe ([id number]) [facility] ([facility]) [address] [place] [address] Phosphate [Mass/Vol] 3.4 mg/dL Normal 2.5-4.9 [facility] Comment on above: Result Comment: The performance characteristics of phosphorus testing in heparinized plasma have been validated by the individual laboratory site where testing is performed. Testing on heparinized plasma is not approved by the FDA; however, such approval is not necessary. Performed By: #### 3 4532-2 #### BEVERLEY Poe ([id number]) [facility] ([facility]) [address] [place] [address] Potassium [Moles/Vol] 3.8 mmol/L Normal 3.5-5.3 [facility] Comment on above: Performed By: #### 3 4532-2 #### BEVERLEY Poe ([id number]) [facility] ([facility]) [address] [place] [address] Sodium [Moles/Vol] 146 mmol/L High 136-145 [facility] Comment on above: Performed By: #### 3 4532-2 #### BEVERLEY Poe ([id number]) [facility] ([facility]) [address] [place] [address] Urea nitrogen [Mass/Vol] 12 mg/dL Normal 6-23 [facility] Comment on above: Performed By: #### 3 4532-2 #### BEVERLEY Poe ([id number]) [facility] ([facility]) [address] [place] [address] Bacteria identifiedon 2022 Bacteria identified Cx Nom (U) Test: Urine culture Specimen Source: Indwelling (Stephens) Catheter Specimen Type: Urine Specimen Date: 09/20/2023 3:34 PM Result Date: 09/22/2023 11:36 AM Result Status: Final result Abnormal: Yes Resulting Lab: [facility] [id number] [place] [address] CULTURE >100,000 Enterococcus faecium (Abnormal) Vancomycin Resistant Enterococcus (VRE) SUSCEPTIBILITY Enterococcus faecium METHOD MICROSCAN ---- ------- AMPICILLIN -- Resistant CIPROFLOXACIN -- Resistant DAPTOMYCIN -- Susceptible-dose dependent LEVOFLOXACIN -- Resistant LINEZOLID -- Susceptible NITROFURANTOIN -- Susceptible PENICILLIN -- Resistant TRIMETHOPRIM/SULFAMETHOXA ZOLE -- Resistant VANCOMYCIN -- Resistant Abnormal [facility] Comment on above: Performed By: #### 3 4532-2 #### BEVERLEY Poe ([id number]) [facility] ([facility]) [address] [place] [address] CBC panel Auto (Bld)on 09-20 Erythrocyte distribution width (RBC) [Ratio] 14.5 % 11.5 - 14.5 % [facility] Hematocrit (Bld) [Volume fraction] 27.7 % Low 36.0 - 46.0 % [facility] Hemoglobin (Bld) [Mass/Vol] 8.3 g/dL Low 12.0 - 16.0 g/dL [facility] Interpretation and review of laboratory results Abnormal [facility] MCH (RBC) [Entitic mass] 30.6 pg 26.0 - 34.0 pg [facility] MCHC (RBC) [Mass/Vol] 30.0 g/dL Low 32.0 - 36.0 g/dL [facility] MCV (RBC) [Entitic vol] 102 fL High 80 - 100 fL [facility] Nucleated RBC/100 WBC (Bld) [Ratio] 0.0 % [facility] Platelets (Bld) [#/Vol] 92 10*3/uL Low [facility] RBC (Bld) [#/Vol] 2.71 10*6/uL Low [facility] WBC (Bld) [#/Vol] 4.3 10*3/uL [facility] Erythrocyte distribution width (RBC) [Ratio] 14.5 % Normal 11.5-14.5 [facility] Comment on above: Performed By: #### 6 00-7 #### BEVERLEY Poe ([id number]) [facility] ([facility]) [address] [place] [address]99 Hematocrit (Bld) [Volume fraction] 27.7 % Low 36.0-46.0 [facility] Comment on above: Performed By: #### 6 -7 #### BEVERLEY Poe ([id number]) [facility] ([facility]) [address] [place] [address]79 Hemoglobin (Bld) [Mass/Vol] 8.3 g/dL Low 12.0-16.0 [facility] Comment on above: Performed By: #### 6 -7 #### BEVERLEY Poe ([id number]) [facility] ([facility]) [address] [place] [address] 56662 MCH (RBC) [Entitic mass] 30.6 pg Normal 26.0-34.0 [facility] Comment on above: Performed By: #### 6 -7 #### BEVERLEY Poe ([id number]) [facility] ([facility]) [address] [place] [address] 64363 MCHC (RBC) [Mass/Vol] 30.0 g/dL Low 32.0-36.0 [facility] Comment on above: Performed By: #### 6 00-7 #### BEVERLEY Poe ([id number]) [facility] ([facility]) [address] [place] [address] 68870 MCV (RBC) [Entitic vol] 102 fL High 80-100 [facility] Comment on above: Performed By: #### 6 00-7 #### BEVERLEY Poe ([id number]) [facility] ([facility]) [address] [place] [address] 37903 Nucleated RBC/100 WBC (Bld) [Ratio] 0.0 /100 WBCs Normal 0.0-0.0 [facility] Comment on above: Performed By: #### 6 00-7 #### BEVERLEY Poe ([id number]) [facility] ([facility]) [address] [place] [address] Platelets (Bld) [#/Vol] 92 x10*3/uL Low 150-450 [facility] Comment on above: Performed By: #### 6 00-7 #### BEVERLEY Poe ([id number]) [facility] ([facility]) [address] [place] [address] RBC (Bld) [#/Vol] 2.71 x10*6/uL Low 4.00-5.20 [facility] Comment on above: Performed By: #### 6 00-7 #### BEVERLEY Poe ([id number]) [facility] ([facility]) [address] [place] [address] WBC (Bld) [#/Vol] 4.3 x10*3/uL Low 4.4-11.3 [facility] Comment on above: Performed By: #### 6 00-7 #### BEVERLEY Poe ([id number]) [facility] ([facility]) [address] [place] [address] Cancer Ag 19-9on 09-20-2023 Cancer Ag 19-9 Qn 6.88 [arb'U]/mL Normal <35.00 [facility] Comment on above: Order Comment: CA 19 -9 testing is performed by chemiluminescent immunoassay using the [employer]ist. Values obtained with different analytic methods cannot [...] By: #### 2 341-6 #### BEVERLEY Poe ([id number]) [facility] ([facility]) [address] [place] [address] 774[address] Cancer Ag 19-9 Qnon 09-20-20 Interpretation and review of laboratory results Normal [facility] Cancer Antigen 19-9on 2022 Cancer Ag 19-9 Qn 6.88 [arb'U]/mL NINF - 35.00 U/mL [facility] Glucose Test strip manual (B ld) [Mass/Vol]on 09-20-2023 Glucose [Mass/Vol] 210 mg/dL High 74 - 99 mg/dL [facility] Interpretation and review of laboratory results Abnormal [facility] Glucose [Mass/Vol] 210 mg/dL High 74-99 [facility] Comment on above: Performed By: #### 2 341-6 #### BEVERLEY Poe ([id number]) [facility] ([facility]) [address] [place] [address] Glucose [Mass/Vol] 114 mg/dL High 74 - 99 mg/dL [facility] Interpretation and review of laboratory results Abnormal [facility] Glucose [Mass/Vol] 114 mg/dL High 74-99 [facility] Comment on above: Performed By: #### 2 341-6 #### BEVERLEY Poe ([id number]) [facility] ([facility]) [address] [place] [address] Glucose [Mass/Vol] 152 mg/dL High 74 - 99 mg/dL [facility] Interpretation and review of laboratory results Abnormal [facility] Glucose [Mass/Vol] 152 mg/dL High 74-99 [facility] Comment on above: Performed By: #### 2 341-6 #### BEVERLEY Poe ([id number]) [facility] ([facility]) [address] [place] [address] Glucose [Mass/Vol] 140 mg/dL High 74 - 99 mg/dL [facility] Interpretation and review of laboratory results Abnormal [facility] Glucose [Mass/Vol] 140 mg/dL High 74-99 [facility] Comment on above: Performed By: #### 6 00-7 #### BEVERLEY Poe ([id number]) [facility] ([facility]) [address] [place] [id number] Glucose [Mass/Vol] 125 mg/dL High 74 - 99 mg/dL [facility] Interpretation and review of laboratory results Abnormal [facility] Glucose [Mass/Vol] 125 mg/dL High 74-99 [facility] Comment on above: Performed By: #### 6 00-7 #### BEVERLEY Poe ([id number]) [facility] ([facility]) [address] [place] [id number] Glucose [Mass/Vol] 111 mg/dL High 74 - 99 mg/dL [facility] Glucose [Mass/Vol] 213 mg/dL High 74 - 99 mg/dL [facility] Interpretation and review of laboratory results Abnormal [facility] Glucose [Mass/Vol] 109 mg/dL High 74 - 99 mg/dL [facility] Interpretation and review of laboratory results Abnormal [facility] Glucose [Mass/Vol] 109 mg/dL High 74-99 [facility] Comment on above: Performed By: #### 6 00-7 #### BEVERLEY Poe ([id number]) [facility] ([facility]) [address] [place] [address] 21798 HCV Ab Ql (S)on 09-20-2023 Interpretation and review of laboratory results Normal [facility] HIV 1+2 Ab+HIV1 p24 Agon HIV 1+2 Ab+HIV1 p24 Ag IA Ql Non-Reactive Normal Nonreactive [facility] Comment on above: Order Comment: HIV [...] By: #### 6 00-7 #### BEVERLEY Poe ([id number]) [facility] ([facility]) [address] [place] [address] 10767 HIV 1+2 Ab+HIV1 p24 Ag IA Ql on 09-20-2023 Interpretation and review of laboratory results Normal [facility] HIV 1/2 Antigen/Antibody Scr een with Reflex to Confirmationon 09-20-2023 HIV 1+2 Ab+HIV1 p24 Ag IA Ql Non-Reactive Nonreactive [facility] Hepatitis C Antibodyon 09-20 HCV Ab Ql (S) Non-Reactive Nonreactive [facility] Hepatitis C virus Abon 09-20 HCV Ab Ql (S) Non-Reactive Normal Nonreactive [facility] Comment on above: Result Comment: Resu lts from patients taking biotin supplements or receiving high-dose biotin therapy should be interpreted with caution due to possible interference with this test. Providers may contact their local laboratory for further information. Performed By: #### 6 00-7 #### BEVERLEY Poe ([id number]) [facility] ([facility]) [address] [place] [address] 13628 Magnesiumon 09-20-2023 Magnesium [Mass/Vol] 2.15 mg/dL 1.60 - 2.40 mg/dL [facility] Magnesium [Mass/Vol] 2.15 mg/dL Normal 1.60-2.40 [facility] Comment on above: Performed By: #### 6 00-7 #### BEVERLEY Poe ([id number]) [facility] ([facility]) [address] [place] [address] 54756 Magnesium [Mass/Vol]on 09-20 Interpretation and review of laboratory results Normal [facility] No Panel Informationon 09-20 [facility] MMODAL MMODAL [facility] Work Phone: No Panel InformationOrdered By: Steven Chacon on 09-20-2023 [facility] Work Phone: Renal function 2000 panelon 09-20-2023 Albumin BCP dye [Mass/Vol] 2.9 g/dL Low 3.4 - 5.0 g/dL [facility] Anion gap [Moles/Vol] 9 mmol/L Low 10 - 2 0 mmol/L [facility] Calcium [Mass/Vol] 8.7 mg/dL 8.6 - 10. 6 mg/dL [facility] Chloride [Moles/Vol] 99 mmol/L 98 - 10 7 mmol/L [facility] CO2 [Moles/Vol] 40 mmol/L Critically high 21 - 32 mmol/L [facility] Creatinine [Mass/Vol] 0.51 mg/dL 0.50 - 1.05 mg/dL [facility] GFR/1.73 sq M.predicted MDRD (S/P/Bld) [Vol rate/Area] - PINF [facility] Glucose [Mass/Vol] 117 mg/dL High 74 - 99 mg/dL [facility] Interpretation and review of laboratory results Abnormal [facility] Phosphate [Mass/Vol] 3.0 mg/dL 2.5 - 4 .9 mg/dL [facility] Potassium [Moles/Vol] 3.9 mmol/L 3.5 - 5.3 mmol/L [facility] Sodium [Moles/Vol] 144 mmol/L 136 - 145 mmol/L [facility] Urea nitrogen [Mass/Vol] 9 mg/dL 6 - 23 mg/dL [facility] Albumin BCP dye [Mass/Vol] 2.9 g/dL Low 3.4-5.0 [facility] Comment on above: Performed By: #### 6 -7 #### BEVERLEY Poe ([id number]) [facility] ([facility]) [address] [place] [address] Anion gap [Moles/Vol] 9 mmol/L Low 10-20 [facility] Comment on above: Performed By: #### 6 -7 #### BEVERLEY CARSONER L ([id number]) [facility] ([facility]) [address] [place] [address] Calcium [Mass/Vol] 8.7 mg/dL Normal 8.6-10.6 [facility] Comment on above: Performed By: #### 6 -7 #### BEVERLEY SCHMOTZER L ([id number]) [facility] ([facility]) [address] [place] [address] Chloride [Moles/Vol] 99 mmol/L Normal 98-107 [facility] Comment on above: Performed By: #### 6 00-7 #### BEVERLEY VORAMOTZER L ([id number]) [facility] ([facility]) [address] [place] [address] 37263 CO2 [Moles/Vol] 40 mmol/L Critically high 21-32 [facility] Comment on above: Performed By: #### 6 -7 #### BEVERLEY VORAMOTZER L ([id number]) [facility] ([facility]) [address] [place] [address] 93312 Creatinine [Mass/Vol] 0.51 mg/dL Normal 0.50-1.05 [facility] Comment on above: Performed By: #### 6 00-7 #### BEVERLEY VORAMOTZER L ([id number]) [facility] ([facility]) [address] [place] [address] 25414 GFR/1.73 sq M.predicted MDRD (S/P/Bld) [Vol rate/Area] mL/min/{1.73_m2} Normal >60 [facility] Comment on above: Result Comment: Calc ulations of estimated GFR are performed using the 2020 CKD-EPI Study Refit equation without the race variable for the IDMS-Traceable creatinine methods. https://jasn.asnjournals.org/content/early//ASN.18328 41325 Performed By: #### 6 00-7 #### BEVERLEY VORAMOTZER L ([id number]) [facility] ([facility]) [address] [place] [address] 68861 Glucose [Mass/Vol] 117 mg/dL High 74-99 [facility] Comment on above: Performed By: #### 6 -7 #### BEVERLEY DODD L ([id number]) [facility] ([facility]) [address] [place] [address] 93008 Phosphate [Mass/Vol] 3.0 mg/dL Normal 2.5-4.9 [facility] Comment on above: Result Comment: The performance characteristics of phosphorus testing in heparinized plasma have been validated by the individual laboratory site where testing is performed. Testing on heparinized plasma is not approved by the FDA; however, such approval is not necessary. Performed By: #### 6 -7 #### BEVERLEY Poe ([id number]) [facility] ([facility]) [address] [place] [address] 50341 Potassium [Moles/Vol] 3.9 mmol/L Normal 3.5-5.3 [facility] Comment on above: Performed By: #### 6 00-7 #### BEVERLEY DODD L ([id number]) [facility] ([facility]) [address] [place] [address] 30486 Sodium [Moles/Vol] 144 mmol/L Normal 136-145 [facility] Comment on above: Performed By: #### 6 -7 #### BEVERLEY VORAMOTZER L ([id number]) [facility] ([facility]) [address] [place] [address] 15811 Urea nitrogen [Mass/Vol] 9 mg/dL Normal 6-23 [facility] Comment on above: Performed By: #### 6 -7 #### BEVERLEY VORAMOTZER L ([id number]) [facility] ([facility]) [address] [place] [address] 45027 TRANSTHORACIC ECHO (TTE) [facility] 09-20-2023 TRANSTHORACIC ECHO (TTE) [facility], [address] [place] [address] 54483 and TRANSTHORACIC ECHOCARDIOGRAM REPORT Patient Name: POLI RAMIREZ Reading Physician: [id number] Kandi Roberts MD Study Date: 09/20/2023 Ordering Provider: [id number] VARSHA SOTELO MRN/PID: [id number] Fellow: Nurse: Mare Higgins Date of /Age: 12 1950 Petal Shaper Hand: Muna Clinton RDCS years Gender: F Additional Staff: Height: 165.10 cm Admit Date: 09/15/2023 Weight: 74.84 kg Admission Status: Inpatient - Routine BSA: 1.82 m2 Department Location: [facility] Non Invasive Blood Pressure: 126 /75 mmHg Study Type: TRANSTHORACIC ECHO (TTE) COMPLETE Diagnosis/ICD: Encounter for preprocedural cardiovascular examination-Z01.810 CPT Code: Echo Complete w Full Doppler-27700 Patient History: Pertinent History: Breast cancer, HTN, [...] LA Area A2C: 21.1 cm2 LA Major Mallory A4C: 5.5 cm LA Major Mallory A2C: 5.6 cm AORTA MEASUREMENTS: Normal Ranges: [...] (more content not included)... Normal [facility] US Heart TransthoracicOrdere d By: Kandi Roberts on 09-20-2023 Aortic Valve Area by Continuity of Peak Velocity 1.81 [facility] Work Phone: [phone] Aortic Valve Area by Continuity of VTI 2.01 [facility] Work Phone: [phone] AV mn grad 9.0 [facility] Work Phone: [phone] AV pk grad 15.7 [facility] Work Phone: [phone] AV pk abiodun 1.98 [facility] Work Phone: [phone] LA vol index A/L 36.9 [facility] Work Phone: [phone] LV A4C EF 19.0 [facility] Work Phone: LVIDd 5.70 [facility] Work Phone: LVOT diam 1.80 [facility] Work Phone: MV avg E/e' ratio 16.03 [facility] Work Phone: MV E/A ratio 0.61 [facility] Work Phone: RV free wall pk S' 14.30 [facility] Work Phone: Tricuspid annular plane systolic excursion 2.0 [facility] Work Phone: [facility] Work Phone: US Heart Transthoracicon SYNGO [facility] Work Phone: Bacteria identified Cx Nom ( Bld)on 09-19-2023 Interpretation and review of laboratory results Normal [facility] CBC panel Auto (Bld)on 09-19 Erythrocyte distribution width (RBC) [Ratio] 14.1 % 11.5 - 14.5 % [facility] Hematocrit (Bld) [Volume fraction] 28.2 % Low 36.0 - 46.0 % [facility] Hemoglobin (Bld) [Mass/Vol] 8.4 g/dL Low 12.0 - 16.0 g/dL [facility] Interpretation and review of laboratory results Abnormal [facility] MCH (RBC) [Entitic mass] 30.9 pg 26.0 - 34.0 pg [facility] MCHC (RBC) [Mass/Vol] 29.8 g/dL Low 32.0 - 36.0 g/dL [facility] MCV (RBC) [Entitic vol] 104 fL High 80 - 100 fL [facility] Nucleated RBC/100 WBC (Bld) [Ratio] 0.0 % [facility] Platelets (Bld) [#/Vol] 90 10*3/uL Low [facility] RBC (Bld) [#/Vol] 2.72 10*6/uL Low [facility] WBC (Bld) [#/Vol] 4.2 10*3/uL [facility] Erythrocyte distribution width (RBC) [Ratio] 14.1 % Normal 11.5-14.5 [facility] Comment on above: Performed By: #### 5 7021-8 #### BEVERLEY Poe ([id number]) [facility] ([facility]) [address] [place] [address] 33405 Hematocrit (Bld) [Volume fraction] 28.2 % Low 36.0-46.0 [facility] Comment on above: Performed By: #### 5 7021-8 #### BEVERLEY Poe ([id number]) [facility] ([facility]) [address] [place] [address] 58364 Hemoglobin (Bld) [Mass/Vol] 8.4 g/dL Low 12.0-16.0 [facility] Comment on above: Performed By: #### 5 7021-8 #### BEVERLEY Poe ([id number]) [facility] ([facility]) [address] [place] [address] 67760 MCH (RBC) [Entitic mass] 30.9 pg Normal 26.0-34.0 [facility] Comment on above: Performed By: #### 5 7021-8 #### BEVERLEY Poe ([id number]) [facility] ([facility]) [address] [place] [address] 51117 MCHC (RBC) [Mass/Vol] 29.8 g/dL Low 32.0-36.0 [facility] Comment on above: Performed By: #### 5 7021-8 #### BEVERLEY Poe ([id number]) [facility] ([facility]) [address] [place] [address] 63278 MCV (RBC) [Entitic vol] 104 fL High 80-100 [facility] Comment on above: Performed By: #### 5 7021-8 #### BEVERLEY Poe ([id number]) [facility] ([facility]) [address] [place] [address] 46871 Nucleated RBC/100 WBC (Bld) [Ratio] 0.0 /100 WBCs Normal 0.0-0.0 [facility] Comment on above: Performed By: #### 5 7021-8 #### BEVERLEY Poe ([id number]) [facility] ([facility]) [address] [place] [address] Platelets (Bld) [#/Vol] 90 x10*3/uL Low 150-450 [facility] Comment on above: Performed By: #### 5 7021-8 #### BEVERLEY Poe ([id number]) [facility] ([facility]) [address] [place] [address] RBC (Bld) [#/Vol] 2.72 x10*6/uL Low 4.00-5.20 [facility] Comment on above: Performed By: #### 5 7021-8 #### BEVERLEY DODD L ([id number]) [facility] ([facility]) [address] [place] [address] WBC (Bld) [#/Vol] 4.2 x10*3/uL Low 4.4-11.3 [facility] Comment on above: Performed By: #### 5 7021-8 #### BEVERLEY DODD L ([id number]) [facility] ([facility]) [address] [place] [address] CT HEAD WO IV CONTRASTon CT HEAD WO IV CONTRAST Interpreted By: Susy Bright, STUDY: CT HEAD WO IV CONTRAST; 09/19/2023 3:43 pm INDICATION: Signs/Symptoms:R/o subdural hematoma, thrombocytopenia workup (fall several weeks ago). COMPARISON: None. ACCESSION NUMBER(S): [id number] ORDERING CLINICIAN: KANG JULIAN TECHNIQUE: Axial CT [...] Susy Canales 09/19/2023 4:06 PM Dictation workstation: [id number] Normal [facility] CT Head WO contraston 2022 [facility] MMODAL [facility] MMODAL [facility] Work Phone: Radiology Study observation (narrative) [facility] Work Phone: CT Head WO contrastOrdered B y: Susy Canales on 09-19-2023 [facility] Work Phone: ECG 12-LEADon 09-19-2023 ECG 12-LEAD Ventricular Rate 104 Atrial Rate 104 P-R Interval 150 QRS Duration 136 Q-T Interval 352 QTC Calculation(Bazett) 462 P Mallory 67 R Mallory -54 T Mallory 70 QRS Count 17 Q Onset 212 P Onset 137 P Offset 193 T Offset 388 QTC Fredericia 422 Diagnosis Sinus tachycardia with occasional Premature ventricular complexes Left bundle branch block Abnormal ECG When compared with ECG of 19-SEP-2023 12:28, (unconfirmed) Premature ventricular complexes are now Present Confirmed by Simon Piedra ([id number]) on 09/27/2023 12:27:49 PM Normal [facility] ECG 12-LEAD Ventricular Rate 96 Atrial Rate 96 P-R Interval 156 QRS Duration 136 Q-T Interval 380 QTC Calculation(Bazett) 480 P Mallory 61 R Mallory -49 T Mallory 77 QRS Count 16 Q Onset 211 P Onset 133 P Offset 197 T Offset 401 QTC Fredericia 444 Diagnosis Sinus rhythm with occasional Premature ventricular complexes Left axis deviation Left bundle branch block Abnormal ECG No previous ECGs available Confirmed by Harrison Piedra ([id number]) on 09/26/2023 9:00:49 AM Normal [facility] Gas panel (BldA)Ordered By: Allyssa Bach on 09-19-2023 Base excess Calc (Bld) [Moles/Vol] 14.9 mmol/L High -2.0 - 3.0 mmol/L [facility] CO2 (Bld) [Partial pressure] 61 mm[Hg] High [facility] HCO3 (Bld) [Moles/Vol] 41.4 mmol/L High 22.0 - 26.0 mmol/L [facility] Inhaled oxygen concentration 28 % [facility] Interpretation and review of laboratory results Abnormal [facility] Oxygen (Bld) [Partial pressure] 121 mm[Hg] High [facility] Oxyhemoglobin (BldA) [Mass fraction] 96.7 % 94.0 - 98.0 % [facility] pH (Bld) 7.44 [pH] High 7.38 - 7.42 pH [facility] Gas panel (BldA)on Base excess Calc (Bld) [Moles/Vol] 14.9 mmol/L High -2.0-3.0 [facility] Comment on above: Order Comment: While on baseline/ home level of oxygen Performed By: #### 6 00-7 #### BEVERLEY Poe ([id number]) [facility] ([facility]) [address] [place] [address] 94747 CO2 (Bld) [Partial pressure] 61 mm Hg High 38-42 [facility] Comment on above: Order Comment: While on baseline/ home level of oxygen Performed By: #### 6 00-7 #### BEVERLEY PATELTZER L ([id number]) [facility] ([facility]) [address] [place] [address] HCO3 (Bld) [Moles/Vol] 41.4 mmol/L High 22.0-26.0 U [facility] Comment on above: Order Comment: While on baseline/ home level of oxygen Performed By: #### 6 00-7 #### BEVERLEY VORAMOTZER L ([id number]) [facility] ([facility]) [address] [place] [address] 96963 Inhaled oxygen concentration 28 % Normal [facility] Comment on above: Order Comment: While on baseline/ home level of oxygen Performed By: #### 6 00-7 #### BEVERLEY Poe ([id number]) [facility] ([facility]) [address] [place] [address] 83302 Oxygen (Bld) [Partial pressure] 121 mm Hg High 85-95 [facility] Comment on above: Order Comment: While on baseline/ home level of oxygen Performed By: #### 6 00-7 #### BEVERLEY Poe ([id number]) [facility] ([facility]) [address] [place] [address] 77330 Oxyhemoglobin (BldA) [Mass fraction] 96.7 % Normal 94.0-98.0 [facility] Comment on above: Order Comment: While on baseline/ home level of oxygen Performed By: #### 6 -7 #### BEVERLEY Poe ([id number]) [facility] ([facility]) [address] [place] [address] 28438 pH (Bld) 7.44 [pH] High 7.38-7.42 [facility] Comment on above: Order Comment: While on baseline/ home level of oxygen Performed By: #### 6 -7 #### BEVERLEY Poe ([id number]) [facility] ([facility]) [address] [place] [address] 95488 Glucose Test strip manual (B ld) [Mass/Vol]on 09-19-2023 Glucose [Mass/Vol] 213 mg/dL High 74-99 [facility] Comment on above: Performed By: #### 6 00-7 #### BEVERLEY DODD L ([id number]) [facility] ([facility]) [address] [place] [address] 73973 Glucose [Mass/Vol] 158 mg/dL High 74 - 99 mg/dL [facility] Interpretation and review of laboratory results Abnormal [facility] Glucose [Mass/Vol] 158 mg/dL High 74-99 [facility] Comment on above: Performed By: #### 6 00-7 #### BEVERLEY Poe ([id number]) [facility] ([facility]) [address] [place] [address] 26179 Glucose [Mass/Vol] 98 mg/dL 74 - 99 mg/dL [facility] Interpretation and review of laboratory results Normal [facility] Glucose [Mass/Vol] 98 mg/dL Normal 74-99 [facility] Comment on above: Performed By: #### 6 00-7 #### BEVERLEY Poe ([id number]) [facility] ([facility]) [address] [place] [address] 81851 Glucose [Mass/Vol] 111 mg/dL High 74-99 [facility] Comment on above: Performed By: #### 6 00-7 #### BEVERLEY Poe ([id number]) [facility] ([facility]) [address] [place] [address] 86140 Glucose [Mass/Vol] 164 mg/dL High 74 - 99 mg/dL [facility] Interpretation and review of laboratory results Abnormal [facility] Glucose [Mass/Vol] 164 mg/dL High 74-99 [facility] Comment on above: Performed By: #### 5 7021-8 #### BEVERLEY Poe ([id number]) [facility] ([facility]) [address] [place] [address] 32667 Glucose [Mass/Vol] 124 mg/dL High 74 - 99 mg/dL [facility] Interpretation and review of laboratory results Abnormal [facility] Glucose [Mass/Vol] 124 mg/dL High 74-99 [facility] Comment on above: Performed By: #### 5 7021-8 #### BEVERLEY Poe ([id number]) [facility] ([facility]) [address] [place] [address] 97436 HBV surface Ag IA Qlon 09-19 Interpretation and review of laboratory results Normal [facility] Hepatitis B Surface Antigeno n 09-19-2023 HBV surface Ag IA Ql Non-Reactive Nonreactive U [facility] - Microbiology an d Antimicrobial susceptibilityon 09-19-2023 Bacteria identified Cx Nom (Bld) No growth at 4 days - FINAL REPORT [facility] Magnesiumon 09-19-2023 Magnesium [Mass/Vol] 2.22 mg/dL 1.60 - 2.40 mg/dL [facility] Magnesium [Mass/Vol] 2.22 mg/dL Normal 1.60-2.40 [facility] Comment on above: Performed By: #### 6 00-7 #### BEVERLEY Poe ([id number]) [facility] ([facility]) [address] [place], [place] [id number] Magnesium [Mass/Vol]on 09-19 Interpretation and review of laboratory results Normal [facility] Natriuretic peptide B [Mass/ Vol]on 09-19-2023 Interpretation and review of laboratory results Abnormal [facility] Natriuretic peptide B (Bld) [Mass/Vol] 154 pg/mL High 0 - 99 pg/mL [facility] Natriuretic peptide B (Bld) [Mass/Vol] 154 pg/mL High 0-99 [facility] Comment on above: Order Comment: <100 pg/mL - Heart failure [id number] pg/mL - Intermediate probability of acute heart [...] By: #### 6 00-7 #### BEVERLEY Poe ([id number]) [facility] ([facility]) [address] [place] [address] 01918 No Panel Informationon 09-19 Radiology Study observation (narrative) [facility] Work Phone: [facility] PT and aPTT panel Coag (PPP) on 09-19-2023 aPTT Coag (PPP) [Time] 32 s [facility] INR Coag (PPP) [Relative time] 1.1 {INR} 0.9 - 1.1 [facility] Interpretation and review of laboratory results Normal [facility] PT Coag (PPP) [Time] 12.3 s [facility] aPTT Coag (PPP) [Time] 32 s Normal 27-38 [facility] Comment on above: Order Comment: The A PTT is no longer used for monitoring Unfractionated Heparin Therapy. For monitoring Heparin Therapy, use the Heparin Assay. Performed By: #### 5 7021-8 #### BEVERLEY Poe ([id number]) [facility] ([facility]) [address] [place] [address] 14339 INR Coag (PPP) [Relative time] 1.1 Normal 0.9-1.1 [facility] Comment on above: Order Comment: The A PTT is no longer used for monitoring Unfractionated Heparin Therapy. For monitoring Heparin Therapy, use the Heparin Assay. Performed By: #### 5 7021-8 #### BEVERLEY Poe ([id number]) [facility] ([facility]) [address] [place] [address] 14857 PT Coag (PPP) [Time] 12.3 s Normal 9.8-12.8 [facility] Comment on above: Order Comment: The A PTT is no longer used for monitoring Unfractionated Heparin Therapy. For monitoring Heparin Therapy, use the Heparin Assay. Performed By: #### 5 7021-8 #### BEVERLEY Poe ([id number]) [facility] ([facility]) [address] [place] [address] 79385 Renal function 2000 panelon 09-19-2023 Albumin BCP dye [Mass/Vol] 2.8 g/dL Low 3.4 - 5.0 g/dL [facility] Anion gap [Moles/Vol] 14 mmol/L 10 - 2 0 mmol/L [facility] Calcium [Mass/Vol] 8.2 mg/dL Low 8.6 - 10. 6 mg/dL [facility] Chloride [Moles/Vol] 101 mmol/L 98 - 10 7 mmol/L [facility] CO2 [Moles/Vol] 35 mmol/L High 21 - 32 mmol/L [facility] Creatinine [Mass/Vol] 0.40 mg/dL Low 0.50 - 1.05 mg/dL [facility] GFR/1.73 sq M.predicted MDRD (S/P/Bld) [Vol rate/Area] - PINF [facility] Glucose [Mass/Vol] 122 mg/dL High 74 - 99 mg/dL [facility] Interpretation and review of laboratory results Abnormal [facility] Phosphate [Mass/Vol] 2.9 mg/dL 2.5 - 4 .9 mg/dL [facility] Potassium [Moles/Vol] 3.9 mmol/L 3.5 - 5.3 mmol/L [facility] Sodium [Moles/Vol] 146 mmol/L High 136 - 145 mmol/L [facility] Urea nitrogen [Mass/Vol] 9 mg/dL 6 - 23 mg/dL [facility] Albumin BCP dye [Mass/Vol] 2.8 g/dL Low 3.4-5.0 [facility] Comment on above: Performed By: #### 6 00-7 #### BEVERLEY Poe ([id number]) [facility] ([facility]) [address] [place] [address] 82095 Anion gap [Moles/Vol] 14 mmol/L Normal 10-20 [facility] Comment on above: Performed By: #### 6 00-7 #### BEVERLEY Poe ([id number]) [facility] ([facility]) [id number] [place] [address] 04322 Calcium [Mass/Vol] 8.2 mg/dL Low 8.6-10.6 [facility] Comment on above: Performed By: #### 6 00-7 #### BEVERLEY Poe ([id number]) [facility] ([facility]) [address] [place] [address] 48413 Chloride [Moles/Vol] 101 mmol/L Normal 98-107 [facility] Comment on above: Performed By: #### 6 00-7 #### BEVERLEY Poe ([id number]) [facility] [facility] ([facility]) [address] [place] [address] CO2 [Moles/Vol] 35 mmol/L High 21-32 [facility] Comment on above: Performed By: #### 6 00-7 #### BEVERLEY Poe ([id number]) [facility] ([facility]) [address] [place] [address] Creatinine [Mass/Vol] 0.40 mg/dL Low 0.50-1.05 [facility] Comment on above: Performed By: #### 6 00-7 #### BEVERLEY Poe ([id number]) [facility] ([facility]) [address] [place] [address] GFR/1.73 sq M.predicted MDRD (S/P/Bld) [Vol rate/Area] mL/min/{1.73_m2} Normal >60 [facility] Comment on above: Result Comment: Calc ulations of estimated GFR are performed using the 2020 CKD-EPI Study Refit equation without the race variable for the IDMS-Traceable creatinine methods. https://jasn.asnjournals.org/content//ASN.77704 38594 Performed By: #### 6 00-7 #### BEVERLEY Poe ([id number]) [facility] ([facility]) [address] [place] [address] Glucose [Mass/Vol] 122 mg/dL High 74-99 [facility] Comment on above: Performed By: #### 6 00-7 #### BEVERLEY Poe ([id number]) [facility] ([facility]) [address] [place] [address] Phosphate [Mass/Vol] 2.9 mg/dL Normal 2.5-4.9 [facility] Comment on above: Result Comment: The performance characteristics of phosphorus testing in heparinized plasma have been validated by the individual laboratory site where testing is performed. Testing on heparinized plasma is not approved by the FDA; however, such approval is not necessary. Performed By: #### -7 #### BEVERLEY SCHMOTZER L ([id number]) [facility] ([facility]) [address] [place] [address] Potassium [Moles/Vol] 3.9 mmol/L Normal 3.5-5.3 [facility] Comment on above: Performed By: #### 6 00-7 #### BEVERLEY SCHMOTZER L ([id number]) [facility] ([facility]) [address] [place] [address] Sodium [Moles/Vol] 146 mmol/L High 136-145 [facility] Comment on above: Performed By: #### 6 00-7 #### BEVERLEY SCHMOTZER L ([id number]) [facility] ([facility]) [address] [place] [address] Urea nitrogen [Mass/Vol] 9 mg/dL Normal 6-23 [facility] Comment on above: Performed By: #### 6 00-7 #### BEVERLEY SCHMOTZER L ([id number]) [facility] ([facility]) [address] [place] [address] US ABDOMEN LIMITED LIVERon 1 11-19-2022 US ABDOMEN LIMITED LIVER Interpreted By: Steven Chacon and Ebai Jerky STUDY: US ABDOMEN LIMITED LIVER; [facility] US ABDOMINAL/PELVIC DUPLEX COMPLETE; 09/19/2023 6:30 pm INDICATION: 72 y/o F with Signs/Symptoms:Throbocyto penia workup; Signs/Symptoms:per doctor request. COMPARISON: None. ACCESSION NUMBER(S): [id number]; [id number] ORDERING CLINICIAN: KANG JULIAN TECHNIQUE: Multiple images of the right upper quadrant were obtained. Gates scale, color Doppler and spectral Doppler waveform analysis was performed. This examination was interpreted at [facility]. FINDINGS: The liver measures 22.6 cm [...] This study was interpreted at [facility], [place], [place]. MACRO: None Signed by: Steven Chacon 09/20/2023 5:44 AM Dictation workstation: [id number] Normal [facility] Comment on above: Order Comment: Pleas e include portal vein flow velocitys [facility] US ABDOMINAL/PELVIC DUP SRINATH COMPLETEon 09-19-2023 VAS US ABDOMINAL/PELVIC DUPLEX COMPLETE Interpreted By: Steven Chacon, and Kim Sheikh STUDY: US ABDOMEN LIMITED LIVER; [facility] US ABDOMINAL/PELVIC DUPLEX COMPLETE; 09/19/2023 6:30 pm INDICATION: 72 y/o F with Signs/Symptoms:Throbocyto penia workup; Signs/Symptoms:per doctor request. COMPARISON: None. ACCESSION NUMBER(S): [id number]; [id number] ORDERING CLINICIAN: KANG JULIAN TECHNIQUE: Multiple images of the right upper quadrant were obtained. Gates scale, color Doppler and spectral Doppler waveform analysis was performed. This examination was interpreted at [facility]. FINDINGS: The liver measures 22.6 cm [...] as stated. This study was interpreted at [place], [place]. MACRO: None Signed by: Steven Chacon 09/20/2023 5:44 AM Dictation workstation: [id number] [facility] Comment on above: Order Comment: Pleas e include portal vein flow velocitys XR CHEST 1 VIEWon 09-19-2023 XR CHEST 1 VIEW Interpreted By: Delfin Clemens and [place] Lesley STUDY: XR CHEST 1 VIEW; 09/19/2023 8:46 am INDICATION: Signs/Symptoms:copd on oxygen. COMPARISON: Outside hospital CT chest 03/20/2014 ACCESSION NUMBER(S): [id number] ORDERING CLINICIAN: RIMA APPLE FINDINGS: Single AP [...] This study was interpreted at [facility], [place], [place]. MACRO: None Signed by: Delfin Menezes 09/19/2023 9:36 AM Dictation workstation: [id number] Normal [facility] XR Chest Single viewon 09-19 [facility] MM[facility]AL [facility] MM[facility]AL [facility] Work Phone: Radiology Study observation (narrative) [facility] Work Phone: XR Chest Single viewOrdered By: Delfin Menezes on 09-19-2023 [facility] Work Phone: CBC panel Auto (Bld)on 09-18 Erythrocyte distribution width (RBC) [Ratio] 13.8 % 11.5 - 14.5 % [facility] Hematocrit (Bld) [Volume fraction] 26.9 % Low 36.0 - 46.0 % [facility] Hemoglobin (Bld) [Mass/Vol] 8.0 g/dL Low 12.0 - 16.0 g/dL [facility] Interpretation and review of laboratory results Abnormal [facility] MCH (RBC) [Entitic mass] 30.3 pg 26.0 - 34.0 pg [facility] MCHC (RBC) [Mass/Vol] 29.7 g/dL Low 32.0 - 36.0 g/dL [facility] MCV (RBC) [Entitic vol] 102 fL High 80 - 100 fL [facility] Nucleated RBC/100 WBC (Bld) [Ratio] 0.0 % [facility] Platelets (Bld) [#/Vol] 91 10*3/uL Low [facility] RBC (Bld) [#/Vol] 2.64 10*6/uL [facility] WBC (Bld) [#/Vol] 4.2 10*3/uL [facility] Erythrocyte distribution width (RBC) [Ratio] 13.8 % Normal 11.5-14.5 [facility] Comment on above: Performed By: #### 2 4323-8 #### BEVERLEY Poe ([id number]) [facility] ([facility]) [address] [place] [address]21 Hematocrit (Bld) [Volume fraction] 26.9 % Low 36.0-46.0 [facility] Comment on above: Performed By: #### 2 4323-8 #### BEVERLEY Poe ([id number]) [facility] ([facility]) [address] [place] [address] Hemoglobin (Bld) [Mass/Vol] 8.0 g/dL Low 12.0-16.0 [facility] Comment on above: Performed By: #### 2 4323-8 #### BEVERLEY Poe ([id number]) [facility] ([facility]) [address] [place] [address]4822 MCH (RBC) [Entitic mass] 30.3 pg Normal 26.0-34.0 [facility] Comment on above: Performed By: #### 2 4323-8 #### BEVERLEY Poe ([id number]) [facility] ([facility]) [address] [place] [address]509 MCHC (RBC) [Mass/Vol] 29.7 g/dL Low 32.0-36.0 [facility] Comment on above: Performed By: #### 2 4323-8 #### BEVERLEY Poe ([id number]) [facility] ([facility]) [address] [place] [address] MCV (RBC) [Entitic vol] 102 fL High 80-100 [facility] Comment on above: Performed By: #### 2 4323-8 #### BEVERLEY Poe ([id number]) [facility] ([facility]) [address] [place] [address]0976 Nucleated RBC/100 WBC (Bld) [Ratio] 0.0 /100 WBCs Normal 0.0-0.0 [facility] Comment on above: Performed By: #### 2 4323-8 #### BEVERLEY Poe ([id number]) [facility] ([facility]) [address] [place] [address]55[address] Platelets (Bld) [#/Vol] 91 x10*3/uL Low 150-450 [facility] Comment on above: Performed By: #### 2 4323-8 #### BEVERLEY Poe ([id number]) [facility] ([facility]) [address] [place] [address] 80491 RBC (Bld) [#/Vol] 2.64 x10*6/uL Low 4.00-5.20 [facility] Comment on above: Performed By: #### 2 4323-8 #### BEVERLEY Poe ([id number]) [facility] ([facility]) [address] [place] [address] 15096 WBC (Bld) [#/Vol] 4.2 x10*3/uL Low 4.4-11.3 [facility] Comment on above: Performed By: #### 2 4323-8 #### BEVERLEY Poe ([id number]) [facility] ([facility]) [address] [place] [address] 97523 Cancer Ag 125on 09-18-2023 Cancer Ag 125 Qn 22.0 [arb'U]/mL Normal 0.0-30.2 [facility] Comment on above: Order Comment: CA 12 5 testing is performed by chemiluminescent immunoassay using the Research Journalist. Values obtained with different analytic methods cannot [...] By: #### 3 4532-2 #### BEVERLEY Poe ([id number]) [facility] ([facility]) [address] [place] [address] 11396 Ferritinon 09-18-2023 Ferritin [Mass/Vol] 344 ng/mL High 8 - 150 ng/mL [facility] Ferritin [Mass/Vol] 344 ng/mL High 8-150 [facility] Comment on above: Performed By: #### 5 7021-8 #### BEVERLEY Poe ([id number]) [facility] ([facility]) [address] [place] [address] 26314 Glucose Test strip manual (B ld) [Mass/Vol]on 09-18-2023 Glucose [Mass/Vol] 119 mg/dL High 74 - 99 mg/dL [facility] Interpretation and review of laboratory results Abnormal [facility] Glucose [Mass/Vol] 119 mg/dL High 74-99 [facility] Comment on above: Performed By: #### 5 7021-8 #### BEVERLEY Poe ([id number]) [facility] ([facility]) [address] [place] [address] 15883 Glucose [Mass/Vol] 135 mg/dL High 74 - 99 mg/dL [facility] Interpretation and review of laboratory results Abnormal [facility] Glucose [Mass/Vol] 135 mg/dL High 74-99 [facility] Comment on above: Performed By: #### 2 4323-8 #### BEVERLEY Poe ([id number]) [facility] ([facility]) [address] [place] [address] 12228 Glucose [Mass/Vol] 108 mg/dL High 74 - 99 mg/dL [facility] Interpretation and review of laboratory results Abnormal [facility] Glucose [Mass/Vol] 108 mg/dL High 74-99 [facility] Comment on above: Performed By: #### 2 4323-8 #### BEVERLEY Poe ([id number]) [facility] ([facility]) [address] [place] [address] 29768 HbA1c (Bld) [Mass fraction]o n 09-18-2023 Average glucose Estimated from glycated hemoglobin (Bld) [Mass/Vol] 91 mg/dL Not Established [facility] Average glucose Estimated from glycated hemoglobin (Bld) [Mass/Vol] 91 mg/dL Normal Not Established [facility] Comment on above: Order Comment: Diagn osis of Zabiuwla-DvrujjMpo-Khjwqmts: < or = 5.6%Increased risk for developing diabetes: 5.7-6.4%Diagnostic of diabetes: > or = 6.5%Monitoring of DiabetesAge (y)....................... Therapeutic Goal (%)Adults: >18.........................<7.0Pediatrics: 13-18...................<7.5Pediatrics: 7-12....................<8.0Pediatrics: 0-6..................... 7.5-8.5American Diabetes Association. Diabetes Care 33(S1)Nov 2009 Performed By: #### 2 4323-8 #### BEVERLEY Poe ([id number]) [facility] ([facility]) [address] [place] [phone] Hemoglobin A1con 09-18-2023 HbA1c (Bld) [Mass fraction] 4.8 % see below [facility] Hemoglobin A1c/Hemoglobin.to daphne 09-18-2023 HbA1c (Bld) [Mass fraction] 4.8 % Normal see below [facility] Comment on above: Order Comment: Diagn osis of Unqlxgvu-HqwgdgDce-Ofmtomlw: < or = 5.6%Increased risk for developing diabetes: 5.7-6.4%Diagnostic of diabetes: > or = 6.5%Monitoring of DiabetesAge (y)....................... Therapeutic Goal (%)Adults: >18.........................<7.0Pediatrics: 13-18...................<7.5Pediatrics: 7-12....................<8.0Pediatrics: 0-6..................... 7.5-8.5American Diabetes Association. Diabetes Care 33(S1), Nov 2009 Performed By: #### 2 4323-8 #### BEVERLEY Poe ([id number]) [facility] ([facility]) [address] [place] [address] Hepatic function 2000 panelo n 09-18-2023 Albumin BCP dye [Mass/Vol] 2.7 g/dL Low 3.4 - 5.0 g/dL [facility] ALP [Catalytic activity/Vol] 47 U/L 33 - 136 U/L [facility] ALT With P-5'-P [Catalytic activity/Vol] 7 U/L 7 - 45 U/L [facility] AST With P-5'-P [Catalytic activity/Vol] 10 U/L 9 - 39 U/L [facility] Bilirubin [Mass/Vol] 0.4 mg/dL 0.0 - 1 .2 mg/dL [facility] Bilirubin.direct [Mass/Vol] 0.1 mg/dL 0.0 - 0.3 mg/dL [facility] Interpretation and review of laboratory results Abnormal [facility] Protein [Mass/Vol] 5.7 g/dL Low 6.4 - 8.2 g/dL [facility] Albumin BCP dye [Mass/Vol] 2.7 g/dL Low 3.4-5.0 [facility] Comment on above: Performed By: #### 2 4323-8 #### BEVERLEY Poe ([id number]) [facility] ([facility]) [address] [place] [address] ALP [Catalytic activity/Vol] 47 U/L Normal 33-136 [facility] Comment on above: Performed By: #### 2 4323-8 #### BEVERLEY Poe ([id number]) [facility] ([facility]) [address] [place] [address] 85932 ALT With P-5'-P [Catalytic activity/Vol] 7 U/L Normal 7-45 [facility] Comment on above: Result Comment: Ирина ents treated with Sulfasalazine may generate falsely decreased results for ALT. Performed By: #### 2 4323-8 #### BEVERLEY Poe ([id number]) [facility] ([facility]) [address] [place] [address] AST With P-5'-P [Catalytic activity/Vol] 10 U/L Normal 9-39 [facility] Comment on above: Performed By: #### 2 4323-8 #### BEVERLEY Poe ([id number]) [facility] ([facility]) [address] [place] [address] Bilirubin [Mass/Vol] 0.4 mg/dL Normal 0.0-1.2 [facility] Comment on above: Performed By: #### 2 4323-8 #### BEVERLEY Poe ([id number]) [facility] ([facility]) [address] [place] [address] 92902 Bilirubin.direct [Mass/Vol] 0.1 mg/dL Normal 0.0-0.3 [facility] Comment on above: Performed By: #### 2 4323-8 #### BEVERLEY Poe ([id number]) [facility] ([facility]) [address] [place] [address] 04804 Protein [Mass/Vol] 5.7 g/dL Low 6.4-8.2 [facility] Comment on above: Performed By: #### 2 4323-8 #### BEVERLEY Poe ([id number]) [facility] ([facility]) [address] [place], [place] [address] Hepatitis B virus surface Ag on 09-18-2023 HBV surface Ag IA Ql Non-Reactive Normal Nonreactive U [facility] Comment on above: Result Comment: Biot in interference may cause falsely decreased results. Patients taking a Biotin dose of up to 5 mg/day should refrain from taking Biotin for 24 hours before sample collection. Providers may contact their local laboratory for further information. Performed By: #### 6 00-7 #### BEVERLEY Poe ([id number]) [facility] ([facility]) [address] [place], [place] [address] Iron and Iron binding capaci ty panelon 09-18-2023 Iron [Mass/Vol] 33 ug/dL Low 35 - 150 ug/dL [facility] Iron binding capacity [Mass/Vol] 164 ug/dL Low 240 - 445 ug/dL [facility] Iron binding capacity.unsaturated [Mass/Vol] 131 ug/dL 110 - 370 ug/dL [facility] Iron saturation [Mass fraction] 20 % Low 25 - 45 % [facility] Iron [Mass/Vol] 33 ug/dL Low 35-150 [facility] Comment on above: Performed By: #### 5 7021-8 #### BEVERLEY Poe ([id number]) [facility] ([facility]) [address] [place] [address] 36713 Iron binding capacity [Mass/Vol] 164 ug/dL Low 240-445 [facility] Comment on above: Performed By: #### 5 7021-8 #### BEVERLEY Poe ([id number]) [facility] ([facility]) [address] [place] [address] 17323 Iron binding capacity.unsaturated [Mass/Vol] 131 ug/dL Normal 110-370 [facility] Comment on above: Performed By: #### 5 7021-8 #### BEVERLEY Poe ([id number]) [facility] ([facility]) [address] [place] [address] 84198 Iron saturation [Mass fraction] 20 % Low 25-45 [facility] Comment on above: Performed By: #### 5 7021-8 #### BEVERLEY Poe ([id number]) [facility] ([facility]) [address] [place] [address] 00796 Magnesiumon 09-18-2023 Magnesium [Mass/Vol] 1.80 mg/dL 1.60 - 2.40 mg/dL [facility] Magnesium [Mass/Vol] 1.80 mg/dL Normal 1.60-2.40 [facility] Comment on above: Performed By: #### 2 4323-8 #### BEVERLEY Poe ([id number]) [facility] ([facility]) [address] [place] [address] 64277 Magnesium [Mass/Vol]on 09-18 Interpretation and review of laboratory results Normal [facility] Natriuretic peptide B [Mass/ Vol]on 09-18-2023 Interpretation and review of laboratory results Abnormal [facility] Natriuretic peptide B (Bld) [Mass/Vol] 144 pg/mL High 0 - 99 pg/mL [facility] Natriuretic peptide B (Bld) [Mass/Vol] 144 pg/mL High 0-99 [facility] Comment on above: Order Comment: <100 pg/mL - Heart failure [id number] pg/mL - Intermediate probability of acute heart [...] By: #### 5 7021-8 #### BEVERLEY Poe ([id number]) [facility] ([facility]) [address] [place] [address] No Panel Informationon 09-18 Interpretation and review of laboratory results Abnormal [facility] Prealbuminon 09-18-2023 Prealbumin [Mass/Vol] 11.4 mg/dL Low 18.0 - 40.0 mg/dL [facility] Prealbumin [Mass/Vol] 11.4 mg/dL Low 18.0-40.0 [facility] Comment on above: Performed By: #### 5 7021-8 #### BEVERLEY Poe ([id number]) [facility] ([facility]) [address] [place] [address] Prealbumin [Mass/Vol]on Interpretation and review of laboratory results Abnormal [facility] Renal function 2000 panelon 09-18-2023 Albumin BCP dye [Mass/Vol] 2.8 g/dL Low 3.4 - 5.0 g/dL [facility] Anion gap [Moles/Vol] 12 mmol/L 10 - 2 0 mmol/L [facility] Calcium [Mass/Vol] 8.6 mg/dL 8.6 - 10. 6 mg/dL [facility] Chloride [Moles/Vol] 99 mmol/L 98 - 10 7 mmol/L [facility] CO2 [Moles/Vol] 39 mmol/L High 21 - 32 mmol/L [facility] Creatinine [Mass/Vol] 0.37 mg/dL Low 0.50 - 1.05 mg/dL [facility] GFR/1.73 sq M.predicted MDRD (S/P/Bld) [Vol rate/Area] - PINF [facility] Glucose [Mass/Vol] 99 mg/dL 74 - 99 mg/dL [facility] Interpretation and review of laboratory results Abnormal [facility] Phosphate [Mass/Vol] 2.8 mg/dL 2.5 - 4 .9 mg/dL [facility] Potassium [Moles/Vol] 3.6 mmol/L 3.5 - 5.3 mmol/L [facility] Sodium [Moles/Vol] 146 mmol/L High 136 - 145 mmol/L [facility] Urea nitrogen [Mass/Vol] 11 mg/dL 6 - 23 mg/dL [facility] Albumin BCP dye [Mass/Vol] 2.8 g/dL Low 3.4-5.0 [facility] Comment on above: Performed By: #### 2 4323-8 #### BEVERLEY Poe ([id number]) [facility] ([facility]) [address] [place] [address] 51389 Anion gap [Moles/Vol] 12 mmol/L Normal 10-20 [facility] Comment on above: Performed By: #### 2 4323-8 #### BEVERLEY Poe ([id number]) [facility] ([facility]) [address] [place] [address] 56059 Calcium [Mass/Vol] 8.6 mg/dL Normal 8.6-10.6 [facility] Comment on above: Performed By: #### 2 4323-8 #### BEVERLEY DODD L ([id number]) [facility] ([facility]) [address] [place] [address] 32996 Chloride [Moles/Vol] 99 mmol/L Normal 98-107 [facility] Comment on above: Performed By: #### 2 4323-8 #### BEVERLEY Poe ([id number]) [facility] ([facility]) [address] [place] [address] 34246 CO2 [Moles/Vol] 39 mmol/L High 21-32 [facility] Comment on above: Performed By: #### 2 4323-8 #### BEVERLEY Poe ([id number]) [facility] ([facility]) [address] [place] [address] Creatinine [Mass/Vol] 0.37 mg/dL Low 0.50-1.05 [facility] Comment on above: Performed By: #### 2 4323-8 #### BEVERLEY Poe ([id number]) [facility] ([facility]) [address] [place] [address] GFR/1.73 sq M.predicted MDRD (S/P/Bld) [Vol rate/Area] mL/min/{1.73_m2} Normal >60 [facility] Comment on above: Result Comment: Calc ulations of estimated GFR are performed using the 2020 CKD-EPI Study Refit equation without the race variable for the IDMS-Traceable creatinine methods. https://jasn.asnjournals.org/content//ASN.74696 82428 Performed By: #### 2 4323-8 #### BEVERLEY Poe ([id number]) [facility] ([facility]) [address] [place] [address] Glucose [Mass/Vol] 99 mg/dL Normal 74-99 [facility] Comment on above: Performed By: #### 2 4323-8 #### BEVERLEY Poe ([id number]) [facility] ([facility]) [address] [place] [address] Phosphate [Mass/Vol] 2.8 mg/dL Normal 2.5-4.9 [facility] Comment on above: Result Comment: The performance characteristics of phosphorus testing in heparinized plasma have been validated by the individual laboratory site where testing is performed. Testing on heparinized plasma is not approved by the FDA; however, such approval is not necessary. Performed By: #### 2 4323-8 #### BEVERLEY Poe ([id number]) [facility] ([facility]) [address] [place] [address] Potassium [Moles/Vol] 3.6 mmol/L Normal 3.5-5.3 [facility] Comment on above: Performed By: #### 2 4323-8 #### BEVERLEY Poe ([id number]) [facility] ([facility]) [address] [place] [address] Sodium [Moles/Vol] 146 mmol/L High 136-145 [facility] Comment on above: Performed By: #### 2 4323-8 #### BEVERLEY Poe ([id number]) [facility] ([facility]) [address] [place] [address] Urea nitrogen [Mass/Vol] 11 mg/dL Normal 6-23 [facility] Comment on above: Performed By: #### 2 4323-8 #### BEVERLEY Poe ([id number]) [facility] ([facility]) [id number] [place] [address] 62288 CBC panel Auto (Bld)on 09-17 Erythrocyte distribution width (RBC) [Ratio] 13.8 % 11.5 - 14.5 % [facility] Hematocrit (Bld) [Volume fraction] 27.0 % Low 36.0 - 46.0 % [facility] Hemoglobin (Bld) [Mass/Vol] 8.2 g/dL Low 12.0 - 16.0 g/dL [facility] Interpretation and review of laboratory results Abnormal [facility] MCH (RBC) [Entitic mass] 30.6 pg 26.0 - 34.0 pg [facility] MCHC (RBC) [Mass/Vol] 30.4 g/dL Low 32.0 - 36.0 g/dL [facility] MCV (RBC) [Entitic vol] 101 fL High 80 - 100 fL [facility] Nucleated RBC/100 WBC (Bld) [Ratio] 0.0 % [facility] Platelets (Bld) [#/Vol] 88 10*3/uL Low [facility] RBC (Bld) [#/Vol] 2.68 10*6/uL [facility] WBC (Bld) [#/Vol] 3.7 10*3/uL [facility] Erythrocyte distribution width (RBC) [Ratio] 13.8 % Normal 11.5-14.5 [facility] Comment on above: Performed By: #### 1 9123-9 #### BEVERLEY Poe ([id number]) [facility] ([facility]) [address] [place] [address] 94541 Hematocrit (Bld) [Volume fraction] 27.0 % Low 36.0-46.0 [facility] Comment on above: Performed By: #### 1 9123-9 #### BEVERLEY Poe ([id number]) [facility] ([facility]) [id number] [place] [address] 24370 Hemoglobin (Bld) [Mass/Vol] 8.2 g/dL Low 12.0-16.0 [facility] Comment on above: Performed By: #### 1 9123-9 #### BEVERLEY Poe ([id number]) [facility] ([facility]) [address] [place] [address] 96557 MCH (RBC) [Entitic mass] 30.6 pg Normal 26.0-34.0 [facility] Comment on above: Performed By: #### 1 9123-9 #### BEVERLEY Poe ([id number]) [facility] ([facility]) [address] [place] [address] 97626 MCHC (RBC) [Mass/Vol] 30.4 g/dL Low 32.0-36.0 [facility] Comment on above: Performed By: #### 1 9123-9 #### BEVERLEY Poe ([id number]) [facility] ([facility]) [address] [place] [address] 78483 MCV (RBC) [Entitic vol] 101 fL High 80-100 [facility] Comment on above: Performed By: #### 1 9123-9 #### BEVERLEY Poe ([id number]) [facility] ([facility]) [address] [place] [address] 93786 Nucleated RBC/100 WBC (Bld) [Ratio] 0.0 /100 WBCs Normal 0.0-0.0 [facility] Comment on above: Performed By: #### 1 9123-9 #### BEVERLEY Poe ([id number]) [facility] ([facility]) [address] [place] [address] 71827 Platelets (Bld) [#/Vol] 88 x10*3/uL Low 150-450 [facility] Comment on above: Performed By: #### 1 9123-9 #### BEVERLEY Poe ([id number]) [facility] ([facility]) [address] [place] [address] 22044 RBC (Bld) [#/Vol] 2.68 x10*6/uL Low 4.00-5.20 [facility] Comment on above: Performed By: #### 1 9123-9 #### BEVERLEY Poe ([id number]) [facility] ([facility]) [address] [place] [address] 68452 WBC (Bld) [#/Vol] 3.7 x10*3/uL Low 4.4-11.3 [facility] Comment on above: Performed By: #### 1 9123-9 #### BEVERLEY Poe ([id number]) [facility] ([facility]) [address] [place] [address] 24532 Glucose Test strip manual (B ld) [Mass/Vol]on 09-17-2023 Glucose [Mass/Vol] 142 mg/dL High 74 - 99 mg/dL [facility] Interpretation and review of laboratory results Abnormal [facility] Glucose [Mass/Vol] 142 mg/dL High 74-99 [facility] Comment on above: Performed By: #### 2 4323-8 #### BEVERLEY Poe ([id number]) [facility] ([facility]) [address] [place] [address] 91470 Glucose [Mass/Vol] 117 mg/dL High 74 - 99 mg/dL [facility] Interpretation and review of laboratory results Abnormal [facility] Glucose [Mass/Vol] 117 mg/dL High 74-99 [facility] Comment on above: Performed By: #### 2 4323-8 #### BEVERLEY Poe ([id number]) [facility] ([facility]) [address] [place] [address] 01446 Glucose [Mass/Vol] 138 mg/dL High 74 - 99 mg/dL [facility] Interpretation and review of laboratory results Abnormal [facility] Glucose [Mass/Vol] 138 mg/dL High 74-99 [facility] Comment on above: Performed By: #### 2 4323-8 #### BEVERLEY Poe ([id number]) [facility] ([facility]) [address] [place] [address] 77357 Glucose [Mass/Vol] 96 mg/dL 74 - 99 mg/dL [facility] Interpretation and review of laboratory results Normal [facility] Glucose [Mass/Vol] 96 mg/dL Normal 74-99 [facility] Comment on above: Performed By: #### 1 9123-9 #### BEVERLEY Poe ([id number]) [facility] ([facility]) [address] [place] [address] 10976 Magnesiumon 09-17-2023 Magnesium [Mass/Vol] 2.00 mg/dL 1.60 - 2.40 mg/dL [facility] Magnesium [Mass/Vol] 2.00 mg/dL Normal 1.60-2.40 [facility] Comment on above: Performed By: #### 1 9123-9 #### BEVERLEY Poe ([id number]) [facility] ([facility]) [address] [place] [address] 05696 Magnesium [Mass/Vol]on 09-17 Interpretation and review of laboratory results Normal [facility] No Panel Informationon 09-17 [facility] Renal function 2000 panelon 09-17-2023 Albumin BCP dye [Mass/Vol] 2.9 g/dL Low 3.4 - 5.0 g/dL [facility] Anion gap [Moles/Vol] 11 mmol/L 10 - 2 0 mmol/L [facility] Calcium [Mass/Vol] 8.7 mg/dL 8.6 - 10. 6 mg/dL [facility] Chloride [Moles/Vol] 100 mmol/L 98 - 10 7 mmol/L [facility] CO2 [Moles/Vol] 40 mmol/L Critically high 21 - 32 mmol/L [facility] Creatinine [Mass/Vol] 0.32 mg/dL Low 0.50 - 1.05 mg/dL [facility] GFR/1.73 sq M.predicted MDRD (S/P/Bld) [Vol rate/Area] - PINF [facility] Glucose [Mass/Vol] 95 mg/dL 74 - 99 mg/dL [facility] Interpretation and review of laboratory results Abnormal [facility] Phosphate [Mass/Vol] 3.8 mg/dL 2.5 - 4 .9 mg/dL [facility] Potassium [Moles/Vol] 3.8 mmol/L 3.5 - 5.3 mmol/L [facility] Sodium [Moles/Vol] 147 mmol/L High 136 - 145 mmol/L [facility] Urea nitrogen [Mass/Vol] 10 mg/dL 6 - 23 mg/dL [facility] Albumin BCP dye [Mass/Vol] 2.9 g/dL Low 3.4-5.0 [facility] Comment on above: Performed By: #### 1 9123-9 #### BEVERLEY Poe ([id number]) [facility] ([facility]) [address] [place] [address] 63872 Anion gap [Moles/Vol] 11 mmol/L Normal 10-20 [facility] Comment on above: Performed By: #### 1 9123-9 #### BEVERLEY Poe ([id number]) [facility] ([facility]) [address] [place] [address] Calcium [Mass/Vol] 8.7 mg/dL Normal 8.6-10.6 [facility] Comment on above: Performed By: #### 1 9123-9 #### BEVERLEY Poe ([id number]) [facility] ([facility]) [address] [place] [address] Chloride [Moles/Vol] 100 mmol/L Normal 98-107 [facility] Comment on above: Performed By: #### 1 9123-9 #### BEVERLEY Poe ([id number]) [facility] ([facility]) [address] [place] [address] 13997 CO2 [Moles/Vol] 40 mmol/L Critically high 21-32 [facility] Comment on above: Performed By: #### 1 9123-9 #### BEVERLEY Poe ([id number]) [facility] ([facility]) [address] [place] [address] 08014 Creatinine [Mass/Vol] 0.32 mg/dL Low 0.50-1.05 [facility] Comment on above: Performed By: #### 1 9123-9 #### BEVERLEY Poe ([id number]) [facility] ([facility]) [address] [place] [address] 04772 GFR/1.73 sq M.predicted MDRD (S/P/Bld) [Vol rate/Area] mL/min/{1.73_m2} Normal >60 [facility] Comment on above: Result Comment: Calc ulations of estimated GFR are performed using the 2020 CKD-EPI Study Refit equation without the race variable for the IDMS-Traceable creatinine methods. https://jasn.asnjournals.org/content/early//ASN.49078 06966 Performed By: #### 1 9123-9 #### BEVERLEY Poe ([id number]) [facility] ([facility]) [address] [place] [address] 51249 Glucose [Mass/Vol] 95 mg/dL Normal 74-99 [facility] Comment on above: Performed By: #### 1 9123-9 #### BEVERLEY Poe ([id number]) [facility] ([facility]) [address] [place] [address] 65261 Phosphate [Mass/Vol] 3.8 mg/dL Normal 2.5-4.9 [facility] Comment on above: Result Comment: The performance characteristics of phosphorus testing in heparinized plasma have been validated by the individual laboratory site where testing is performed. Testing on heparinized plasma is not approved by the FDA; however, such approval is not necessary. Performed By: #### 1 9123-9 #### BEVERLEY Poe ([id number]) [facility] ([facility]) [address] [place] [address] 59513 Potassium [Moles/Vol] 3.8 mmol/L Normal 3.5-5.3 [facility] Comment on above: Performed By: #### 1 9123-9 #### BEVERLEY Poe ([id number]) [facility] ([facility]) [address] [place] [address] 34584 Sodium [Moles/Vol] 147 mmol/L High 136-145 [facility] Comment on above: Performed By: #### 1 9123-9 #### BEVERLEY Poe ([id number]) [facility] ([facility]) [address] [place] [address] 85022 Urea nitrogen [Mass/Vol] 10 mg/dL Normal 6-23 [facility] Comment on above: Performed By: #### 1 9123-9 #### BEVERLEY Poe ([id number]) [facility] ([facility]) [address] [place] [address] 54418 Blood type and Indirect anti body screen panel (Bld)on 09-16-2023 ABO group Nom (Bld) O [facility] Blood group antibody screen Ql Negative [facility] D Ag Ql (Bld) Positive [facility] CBC panel Auto (Bld)on 09-16 Erythrocyte distribution width (RBC) [Ratio] 13.9 % 11.5 - 14.5 % [facility] Hematocrit (Bld) [Volume fraction] 29.3 % Low 36.0 - 46.0 % [facility] Hemoglobin (Bld) [Mass/Vol] 8.5 g/dL Low 12.0 - 16.0 g/dL [facility] Interpretation and review of laboratory results Abnormal [facility] MCH (RBC) [Entitic mass] 29.9 pg 26.0 - 34.0 pg [facility] MCHC (RBC) [Mass/Vol] 29.0 g/dL Low 32.0 - 36.0 g/dL [facility] MCV (RBC) [Entitic vol] 103 fL High 80 - 100 fL [facility] Nucleated RBC/100 WBC (Bld) [Ratio] 0.0 % [facility] Platelets (Bld) [#/Vol] 93 10*3/uL Low [facility] RBC (Bld) [#/Vol] 2.84 10*6/uL [facility] WBC (Bld) [#/Vol] 3.4 10*3/uL [facility] Erythrocyte distribution width (RBC) [Ratio] 13.9 % Normal 11.5-14.5 [facility] Comment on above: Performed By: #### 1 9123-9 #### BEVERLEY Poe ([id number]) [facility] ([facility]) [address] [place] [address] 92932 Hematocrit (Bld) [Volume fraction] 29.3 % Low 36.0-46.0 [facility] Comment on above: Performed By: #### 1 9123-9 #### BEVERLEY Poe ([id number]) [facility] ([facility]) [address] [place] [address] 05095 Hemoglobin (Bld) [Mass/Vol] 8.5 g/dL Low 12.0-16.0 [facility] Comment on above: Performed By: #### 1 9123-9 #### BEVERLEY Poe ([id number]) [facility] ([facility]) [address] [place] [address] 39886 MCH (RBC) [Entitic mass] 29.9 pg Normal 26.0-34.0 [facility] Comment on above: Performed By: #### 1 9123-9 #### BEVERLEY Poe ([id number]) [facility] ([facility]) [address] [place] [address] 00080 MCHC (RBC) [Mass/Vol] 29.0 g/dL Low 32.0-36.0 [facility] Comment on above: Performed By: #### 1 9123-9 #### BEVERLEY Poe ([id number]) [facility] ([facility]) [address] [place] [address] 97197 MCV (RBC) [Entitic vol] 103 fL High 80-100 [facility] Comment on above: Performed By: #### 1 9123-9 #### BEVERLEY Poe ([id number]) [facility] ([facility]) [address] [place] [address] 62390 Nucleated RBC/100 WBC (Bld) [Ratio] 0.0 /100 WBCs Normal 0.0-0.0 [facility] Comment on above: Performed By: #### 1 9123-9 #### BEVERLEY Poe ([id number]) [facility] ([facility]) [address] [place] [address] 30168 Platelets (Bld) [#/Vol] 93 x10*3/uL Low 150-450 [facility] Comment on above: Performed By: #### 1 9123-9 #### BEVERLEY Poe ([id number]) [facility] ([facility]) [address] [place] [address] 52022 RBC (Bld) [#/Vol] 2.84 x10*6/uL Low 4.00-5.20 [facility] Comment on above: Performed By: #### 1 9123-9 #### BEVERLEY Poe ([id number]) [facility] ([facility]) [address] [place] [address] 14349 WBC (Bld) [#/Vol] 3.4 x10*3/uL Low 4.4-11.3 [facility] Comment on above: Performed By: #### 1 9123-9 #### BEVERLEY Poe ([id number]) [facility] ([facility]) [address] [place] [address] 45687 Carcinoembryonic Agon 2022 Carcinoembryonic Ag [Mass/Vol] ng/mL Normal [facility] Comment on above: Order Comment: REF V ALUES NONSMOKERS 0-2.5 SMOKERS 0-5.0CEA testing is performed by chemiluminescent immunoassay using the Siemens Ancestry. Values obtained with different analytic methods cannot [...] By: #### 1 9123-9 #### BEVERLEY Poe ([id number]) [facility] ([facility]) [address] [place] [address] 43971 Carcinoembryonic Ag [Mass/Vo l]on 09-16-2023 [facility] Carcinoembryonic Antigenon 1 11-16-2022 Carcinoembryonic Ag [Mass/Vol] ug/L ug/L [facility] Glucose Test strip manual (B ld) [Mass/Vol]on 09-16-2023 Glucose [Mass/Vol] 96 mg/dL 74 - 99 mg/dL [facility] Interpretation and review of laboratory results Normal [facility] Glucose [Mass/Vol] 96 mg/dL Normal 74-99 [facility] Comment on above: Performed By: #### 1 9123-9 #### BEVERLEY Poe ([id number]) [facility] ([facility]) [address] [place] [address] 02193 Glucose [Mass/Vol] 94 mg/dL 74 - 99 mg/dL [facility] Interpretation and review of laboratory results Normal [facility] Glucose [Mass/Vol] 94 mg/dL Normal 74-99 [facility] Comment on above: Performed By: #### 1 9123-9 #### BEVERLEY Poe ([id number]) [facility] ([facility]) [address] [place] [address] 15153 Glucose [Mass/Vol] 98 mg/dL 74 - 99 mg/dL [facility] Interpretation and review of laboratory results Normal [facility] Glucose [Mass/Vol] 98 mg/dL Normal 74-99 [facility] Comment on above: Performed By: #### 2 341-6 #### BEVERLEY Poe ([id number]) [facility] ([facility]) [address] [place] [address] 85019 Glucose [Mass/Vol] 92 mg/dL 74 - 99 mg/dL [facility] Interpretation and review of laboratory results Normal [facility] Glucose [Mass/Vol] 92 mg/dL Normal 74-99 [facility] Comment on above: Performed By: #### 2 341-6 #### BEVERLEY Poe ([id number]) [facility] ([facility]) [address] [place] [address] 40949 Glucose [Mass/Vol] 88 mg/dL 74 - 99 mg/dL [facility] Interpretation and review of laboratory results Normal [facility] Glucose [Mass/Vol] 88 mg/dL Normal 74-99 [facility] Comment on above: Performed By: #### 2 341-6 #### BEVERLEY Poe ([id number]) [facility] ([facility]) [address] [place] [address] 48713 Magnesiumon 09-16-2023 Magnesium [Mass/Vol] 2.04 mg/dL 1.60 - 2.40 mg/dL [facility] Magnesium [Mass/Vol] 2.04 mg/dL Normal 1.60-2.40 [facility] Comment on above: Performed By: #### 1 9123-9 #### BEVERLEY Poe ([id number]) [facility] ([facility]) [address] [place] [address] 55889 Magnesium [Mass/Vol]on 09-16 Interpretation and review of laboratory results Normal [facility] No Panel Informationon 09-16 [facility] Renal function 2000 panelon 09-16-2023 Albumin BCP dye [Mass/Vol] 3.0 g/dL Low 3.4 - 5.0 g/dL [facility] Anion gap [Moles/Vol] 10 mmol/L 10 - 2 0 mmol/L [facility] Calcium [Mass/Vol] 8.8 mg/dL 8.6 - 10. 6 mg/dL [facility] Chloride [Moles/Vol] 99 mmol/L 98 - 10 7 mmol/L [facility] CO2 [Moles/Vol] 40 mmol/L Critically high 21 - 32 mmol/L [facility] Creatinine [Mass/Vol] 0.40 mg/dL Low 0.50 - 1.05 mg/dL [facility] GFR/1.73 sq M.predicted MDRD (S/P/Bld) [Vol rate/Area] - PINF [facility] Glucose [Mass/Vol] 88 mg/dL 74 - 99 mg/dL [facility] Interpretation and review of laboratory results Abnormal [facility] Phosphate [Mass/Vol] 3.1 mg/dL 2.5 - 4 .9 mg/dL [facility] Potassium [Moles/Vol] 3.7 mmol/L 3.5 - 5.3 mmol/L [facility] Sodium [Moles/Vol] 145 mmol/L 136 - 145 mmol/L [facility] Urea nitrogen [Mass/Vol] 12 mg/dL 6 - 23 mg/dL [facility] Albumin BCP dye [Mass/Vol] 3.0 g/dL Low 3.4-5.0 [facility] Comment on above: Performed By: #### 1 9123-9 #### BEVERLEY Poe ([id number]) [facility] ([facility]) [address] [place] [address] 73748 Anion gap [Moles/Vol] 10 mmol/L Normal 10-20 [facility] Comment on above: Performed By: #### 1 9123-9 #### BEVERLEY Poe ([id number]) [facility] ([facility]) [address] [place] [address] 35199 Calcium [Mass/Vol] 8.8 mg/dL Normal 8.6-10.6 [facility] Comment on above: Performed By: #### 1 9123-9 #### BEVERLEY Poe ([id number]) [facility] ([facility]) [address] [place] [address] Chloride [Moles/Vol] 99 mmol/L Normal 98-107 [facility] Comment on above: Performed By: #### 1 9123-9 #### BEVERLEY DODD L ([id number]) [facility] ([facility]) [address] [place] [address] CO2 [Moles/Vol] 40 mmol/L Critically high 21-32 [facility] Comment on above: Performed By: #### 1 9123-9 #### BEVERLEY Poe ([id number]) [facility] ([facility]) [address] [place] [address] Creatinine [Mass/Vol] 0.40 mg/dL Low 0.50-1.05 [facility] Comment on above: Performed By: #### 1 9123-9 #### BEVERLEY Poe ([id number]) [facility] ([facility]) [address] [place] [address] GFR/1.73 sq M.predicted MDRD (S/P/Bld) [Vol rate/Area] mL/min/{1.73_m2} Normal >60 [facility] Comment on above: Result Comment: Calc ulations of estimated GFR are performed using the 2020 CKD-EPI Study Refit equation without the race variable for the IDMS-Traceable creatinine methods. https://jasn.asnjournals.org/content//ASN.61840 15433 Performed By: #### 1 9123-9 #### BEVERLEY Poe ([id number]) [facility] ([facility]) [address] [place] [address] Glucose [Mass/Vol] 88 mg/dL Normal 74-99 [facility] Comment on above: Performed By: #### 1 9123-9 #### BEVERLEY Poe ([id number]) [facility] ([facility]) [address] [place] [address] Phosphate [Mass/Vol] 3.1 mg/dL Normal 2.5-4.9 [facility] Comment on above: Result Comment: The performance characteristics of phosphorus testing in heparinized plasma have been validated by the individual laboratory site where testing is performed. Testing on heparinized plasma is not approved by the FDA; however, such approval is not necessary. Performed By: #### 1 9123-9 #### BEVERLEY Poe ([id number]) [facility] ([facility]) [address] [place] [address] 93555 Potassium [Moles/Vol] 3.7 mmol/L Normal 3.5-5.3 [facility] Comment on above: Performed By: #### 1 9123-9 #### BEVERLEY Poe ([id number]) [facility] ([facility]) [address] [place] [address] 35414 Sodium [Moles/Vol] 145 mmol/L Normal 136-145 [facility] Comment on above: Performed By: #### 1 9123-9 #### BEVERLEY Poe ([id number]) [facility] ([facility]) [address] [place] [address] 34770 Urea nitrogen [Mass/Vol] 12 mg/dL Normal 6-23 [facility] Comment on above: Performed By: #### 1 9123-9 #### BEVERLEY Poe ([id number]) [facility] ([facility]) [address] [place] [address] 74384 Bacteria identifiedon 2022 Bacteria identified Cx Nom (Bld) Test: Blood Culture Specimen Source: Peripheral Venipuncture Specimen Type: Blood culture Specimen Date: 09/15/2023 9:24 PM Result Date: 09/19/2023 10:01 PM Result Status: Final result Abnormal: No Resulting Lab: [facility] [address] [place] [address] 91988 CULTURE No growth at 4 days - FINAL REPORT [facility] Comment on above: Performed By: #### 6 00-7 #### BEVERLEY Poe ([id number]) [facility] ([facility]) [address] [place] [address] 86714 Basophil percentageOrdered B y: Calvin Hester on 09-15-2023 Lactate [Moles/Vol] 0.6 mmol/L 0.4-2.0 [facility] Basophil percentage 10-25 SEEN /hpf 0-5 [facility] Bilirubin Test strip Ql (U)O rdered By: Calvin Hester on 09-15-2023 Bilirubin Ql (U) Negative Negative [facility] Blood type and Indirect anti body screen panel (Bld)on 09-15-2023 ABO group Nom (Bld) O Normal [facility] Comment on above: Performed By: #### 3 4532-2 #### BEVERLEY Poe ([id number]) [facility] ([facility]) [id number] [place], [place] [id number] Blood group antibody screen Ql Negative [facility] Comment on above: Performed By: #### 3 4532-2 #### BEVERLEY Poe ([id number]) [facility] ([facility]) [address] [place], [place] [phone] D Ag Ql (Bld) Positive [facility] Comment on above: Result Comment: 2nd ABO test required. Order and Collect VERAB Performed By: #### 3 4532-2 #### BEVERLEY Poe ([id number]) [facility] ([facility]) [address] [place] [address] 37881 CBC W Auto Differential pane l (Bld)on 09-15-2023 Basophils (Bld) [#/Vol] 0.01 10*3/uL [facility] Basophils/100 WBC (Bld) 0.3 % 0.0 - 2.0 % [facility] Eosinophils (Bld) [#/Vol] 0.06 10*3/uL [facility] Eosinophils/100 WBC (Bld) 1.7 % 0.0 - 6.0 % [facility] Erythrocyte distribution width (RBC) [Ratio] 13.9 % 11.5 - 14.5 % [facility] Hematocrit (Bld) [Volume fraction] 27.8 % Low 36.0 - 46.0 % [facility] Hemoglobin (Bld) [Mass/Vol] 7.9 g/dL Low 12.0 - 16.0 g/dL [facility] Immature granulocytes (Bld) [#/Vol] 0.02 10*3/uL [facility] Immature granulocytes/100 WBC (Bld) 0.6 % 0.0 - 0.9 % [facility] Interpretation and review of laboratory results Abnormal [facility] Lymphocytes (Bld) [#/Vol] 0.67 10*3/uL Low [facility] Lymphocytes/100 WBC (Bld) 19.2 % 13.0 - 44.0 % [facility] MCH (RBC) [Entitic mass] 29.8 pg 26.0 - 34.0 pg [facility] MCHC (RBC) [Mass/Vol] 28.4 g/dL Low 32.0 - 36.0 g/dL [facility] MCV (RBC) [Entitic vol] 105 fL High 80 - 100 fL [facility] Monocytes (Bld) [#/Vol] 0.23 10*3/uL [facility] Monocytes/100 WBC (Bld) 6.6 % 2.0 - 10.0 % [facility] Neutrophils (Bld) [#/Vol] 2.50 10*3/uL [facility] Neutrophils/100 WBC (Bld) 71.6 % 40.0 - 80.0 % [facility] [facility] Nucle[facility] RBC/100 WBC (Bld) [Ratio] 0.0 % [facility] Platelets (Bld) [#/Vol] 123 10*3/uL Low [facility] RBC (Bld) [#/Vol] 2.65 10*6/uL [facility] WBC (Bld) [#/Vol] 3.5 10*3/uL [facility] Basophils (Bld) [#/Vol] 0.01 x10*3/uL Normal 0.00-0.10 [facility] Comment on above: Performed By: #### 5 7021-8 #### BEVERLEY Poe ([id number]) [facility] ([facility]) [address] [place] [address] 29806 Basophils/100 WBC (Bld) 0.3 % Normal 0.0-2.0 [facility] Comment on above: Performed By: #### 5 7021-8 #### BEVERLEY Poe ([id number]) [facility] ([facility]) [address] [place] [address] 47436 Eosinophils (Bld) [#/Vol] 0.06 x10*3/uL Normal 0.00-0.40 [facility] Comment on above: Performed By: #### 5 7021-8 #### BEVERLEY Poe ([id number]) [facility] ([facility]) [address] [place] [address] 36564 Eosinophils/100 WBC (Bld) 1.7 % Normal 0.0-6.0 [facility] Comment on above: Performed By: #### 5 7021-8 #### BEVERLEY Poe ([id number]) [facility] ([facility]) [address] [place] [address] 75536 Erythrocyte distribution width (RBC) [Ratio] 13.9 % Normal 11.5-14.5 [facility] Comment on above: Performed By: #### 5 7021-8 #### BEVERLEY Poe ([id number]) [facility] ([facility]) [address] [place] [address] 88323 Hematocrit (Bld) [Volume fraction] 27.8 % Low 36.0-46.0 [facility] Comment on above: Performed By: #### 5 7021-8 #### BEVERLEY Poe ([id number]) [facility] ([facility]) [address] [place] [address] 98029 Hemoglobin (Bld) [Mass/Vol] 7.9 g/dL Low 12.0-16.0 [facility] Comment on above: Performed By: #### 5 7021-8 #### BEVERLEY Poe ([id number]) [facility] ([facility]) [address] [place] [address] 06978 Immature granulocytes (Bld) [#/Vol] 0.02 x10*3/uL Normal 0.00-0.50 [facility] Comment on above: Performed By: #### 5 7021-8 #### BEVERLEY Poe ([id number]) [facility] ([facility]) [address] [place] [address] 47865 Immature granulocytes/100 WBC (Bld) 0.6 % Normal 0.0-0.9 [facility] Comment on above: Result Comment: Sharda ture Granulocyte Count (IG) includes promyelocytes, myelocytes and metamyelocytes but does not include bands. Percent differential counts (%) should be interpreted in the context of the absolute cell counts (cells/UL). Performed By: #### 5 7021-8 #### BEVERLEY Poe ([id number]) [facility] ([facility]) [address] [place] [address] 31275 Lymphocytes (Bld) [#/Vol] 0.67 x10*3/uL Low 0.80-3.00 [facility] Comment on above: Performed By: #### 5 7021-8 #### BEVERLEY Poe ([id number]) [facility] ([facility]) [address] [place] [address] 36212 Lymphocytes/100 WBC (Bld) 19.2 % Normal 13.0-44.0 [facility] Comment on above: Performed By: #### 5 7021-8 #### BEVERLEY Poe ([id number]) [facility] ([facility]) [address] [place] [address] 84691 MCH (RBC) [Entitic mass] 29.8 pg Normal 26.0-34.0 [facility] Comment on above: Performed By: #### 5 7021-8 #### BEVERLEY Poe ([id number]) [facility] ([facility]) [address] [place] [address] 57501 MCHC (RBC) [Mass/Vol] 28.4 g/dL Low 32.0-36.0 [facility] Comment on above: Performed By: #### 5 7021-8 #### BEVERLEY Poe ([id number]) [facility] ([facility]) [address] [place] [address] MCV (RBC) [Entitic vol] 105 fL High 80-100 [facility] Comment on above: Performed By: #### 5 7021-8 #### BEVERLEY Poe ([id number]) [facility] ([facility]) [id number] [place] [address] 89858 Monocytes (Bld) [#/Vol] 0.23 x10*3/uL Normal 0.05-0.80 [facility] Comment on above: Performed By: #### 5 7021-8 #### BEVERLEY Poe ([id number]) [facility] ([facility]) [address] [place] [address] 27135 Monocytes/100 WBC (Bld) 6.6 % Normal 2.0-10.0 [facility] Comment on above: Performed By: #### 5 7021-8 #### BEVERLEY Poe ([id number]) [facility] ([facility]) [address] [place] [address] 49498 Neutrophils (Bld) [#/Vol] 2.50 x10*3/uL Normal 1.60-5.50 [facility] Comment on above: Result Comment: Perc ent differential counts (%) should be interpreted in the context of the absolute cell counts (cells/uL). Performed By: #### 5 7021-8 #### BEVERLEY Poe ([id number]) [facility] ([facility]) [id number] [place] [address] 20967 Neutrophils/100 WBC (Bld) 71.6 % Normal 40.0-80.0 [facility] Comment on above: Performed By: #### 5 7021-8 #### BEVERLEY Poe ([id number]) [facility] ([facility]) [address] [place] [address] Nucleated RBC/100 WBC (Bld) [Ratio] 0.0 /100 WBCs Normal 0.0-0.0 [facility] Comment on above: Performed By: #### 5 7021-8 #### BEVERLEY Poe ([id number]) [facility] ([facility]) [address] [place] [address] Platelets (Bld) [#/Vol] 123 x10*3/uL Low 150-450 [facility] Comment on above: Performed By: #### 5 7021-8 #### BEVERLEY Poe ([id number]) [facility] ([facility]) [address] [place] [address] RBC (Bld) [#/Vol] 2.65 x10*6/uL Low 4.00-5.20 [facility] Comment on above: Performed By: #### 5 7021-8 #### BEVERLEY Poe ([id number]) [facility] ([facility]) [address] [place] [address] WBC (Bld) [#/Vol] 3.5 x10*3/uL Low 4.4-11.3 [facility] Comment on above: Performed By: #### 5 7021-8 #### BEVERLEY Poe ([id number]) [facility] ([facility]) [address] [place] [address] Comprehensive metabolic 2000 panelon 09-15-2023 Albumin BCP dye [Mass/Vol] 3.0 g/dL Low 3.4 - 5.0 g/dL [facility] ALP [Catalytic activity/Vol] 47 U/L 33 - 136 U/L [facility] ALT With P-5'-P [Catalytic activity/Vol] 10 U/L 7 - 45 U/L [facility] Anion gap [Moles/Vol] 10 mmol/L 10 - 2 0 mmol/L [facility] AST With P-5'-P [Catalytic activity/Vol] 10 U/L 9 - 39 U/L [facility] Bilirubin [Mass/Vol] 0.6 mg/dL 0.0 - 1 .2 mg/dL [facility] Calcium [Mass/Vol] 8.8 mg/dL 8.6 - 10. 6 mg/dL [facility] Chloride [Moles/Vol] 100 mmol/L 98 - 10 7 mmol/L [facility] CO2 [Moles/Vol] 39 mmol/L High 21 - 32 mmol/L [facility] Creatinine [Mass/Vol] 0.45 mg/dL Low 0.50 - 1.05 mg/dL [facility] GFR/1.73 sq M.predicted MDRD (S/P/Bld) [Vol rate/Area] - PINF [facility] Glucose [Mass/Vol] 88 mg/dL 74 - 99 mg/dL [facility] Interpretation and review of laboratory results Abnormal [facility] Potassium [Moles/Vol] 4.2 mmol/L 3.5 - 5.3 mmol/L [facility] Protein [Mass/Vol] 6.1 g/dL Low 6.4 - 8.2 g/dL [facility] Sodium [Moles/Vol] 145 mmol/L 136 - 145 mmol/L [facility] Urea nitrogen [Mass/Vol] 13 mg/dL 6 - 23 mg/dL [facility] Albumin BCP dye [Mass/Vol] 3.0 g/dL Low 3.4-5.0 [facility] Comment on above: Performed By: #### 2 4323-8 #### BEVERLEY Poe ([id number]) [facility] ([facility]) [id number] [place] [address] 17283 ALP [Catalytic activity/Vol] 47 U/L Normal 33-136 [facility] Comment on above: Performed By: #### 2 4323-8 #### BEVERLEY Poe ([id number]) [facility] ([facility]) [id number] [place] [address] 65441 ALT With P-5'-P [Catalytic activity/Vol] 10 U/L Normal 7-45 [facility] Comment on above: Result Comment: Ирина ents treated with Sulfasalazine may generate falsely decreased results for ALT. Performed By: #### 2 4323-8 #### BEVERLEY Poe ([id number]) [facility] ([facility]) [address] [place] [address] Anion gap [Moles/Vol] 10 mmol/L Normal 10-20 [facility] Comment on above: Performed By: #### 2 4323-8 #### BEVERLEY Poe ([id number]) [facility] ([facility]) [address] [place] [address] AST With P-5'-P [Catalytic activity/Vol] 10 U/L Normal 9-39 [facility] Comment on above: Performed By: #### 2 4323-8 #### BEVERLEY Poe ([id number]) [facility] ([facility]) [id number] [place] [address] 63755 Bilirubin [Mass/Vol] 0.6 mg/dL Normal 0.0-1.2 [facility] Comment on above: Performed By: #### 2 4323-8 #### BEVERLEY Poe ([id number]) [facility] ([facility]) [address] [place] [address] 64064 Calcium [Mass/Vol] 8.8 mg/dL Normal 8.6-10.6 [facility] Comment on above: Performed By: #### 2 4323-8 #### BEVERLEY Poe ([id number]) [facility] ([facility]) [address] [place] [address] 68854 Chloride [Moles/Vol] 100 mmol/L Normal 98-107 [facility] Comment on above: Performed By: #### 2 4323-8 #### BEVERLEY DODD L ([id number]) [facility] ([facility]) [id number] [place] [address] 28299 CO2 [Moles/Vol] 39 mmol/L High 21-32 [facility] Comment on above: Performed By: #### 2 4323-8 #### BEVERLEY DODD L ([id number]) [facility] ([facility]) [address] [place] [address] 96264 Creatinine [Mass/Vol] 0.45 mg/dL Low 0.50-1.05 [facility] Comment on above: Performed By: #### 2 4323-8 #### BEVERLEY DODD L ([id number]) [facility] ([facility]) [address] [place] [address] GFR/1.73 sq M.predicted MDRD (S/P/Bld) [Vol rate/Area] mL/min/{1.73_m2} Normal >60 [facility] Comment on above: Result Comment: Calc ulations of estimated GFR are performed using the 2020 CKD-EPI Study Refit equation without the race variable for the IDMS-Traceable creatinine methods. https://jasn.asnjournals.org/content/early//ASN.97121 17684 Performed By: #### 2 4323-8 #### BEVERLEY Poe ([id number]) [facility] ([facility]) [id number] [place] [address] 22888 Glucose [Mass/Vol] 88 mg/dL Normal 74-99 [facility] Comment on above: Performed By: #### 2 4323-8 #### BEVERLEY DODD L ([id number]) [facility] ([facility]) [id number] [place] [address] 30851 Potassium [Moles/Vol] 4.2 mmol/L Normal 3.5-5.3 [facility] Comment on above: Performed By: #### 2 4323-8 #### BEVERLEY DODD L ([id number]) [facility] ([facility]) [address] [place] [address] Protein [Mass/Vol] 6.1 g/dL Low 6.4-8.2 [facility] Comment on above: Performed By: #### 2 4323-8 #### BEVERLEY DODD L ([id number]) [facility] ([facility]) [id number] [place] [address] 86295 Sodium [Moles/Vol] 145 mmol/L Normal 136-145 [facility] Comment on above: Performed By: #### 2 4323-8 #### BEVERLEY DODD L ([id number]) [facility] ([facility]) [id number] [place] [address] 67866 Urea nitrogen [Mass/Vol] 13 mg/dL Normal 6-23 [facility] Comment on above: Performed By: #### 2 4323-8 #### BEVERLEY Poe ([id number]) [facility] ([facility]) [id number] [place] [address] 04618 Glucose Glucometer (BldC) [M ass/Vol]Ordered By: Calvin Hester on 09-15-2023 Glucose [Mass/Vol] 95 mg/dL 74-106 [facility] Comment on above: MANAGEMENT OF PATIEN T CARE PER NURSING PROTOCOL Ketones Test strip Ql (U)Ord ered By: Calvin Hester on 09-15-2023 Ketones Ql (U) Negative Negative [facility] Laboratory - Microbiology an d Antimicrobial susceptibilityOrdered By: Calvin Hester on 09-15-2023 Bacteria identified Cx Nom (Bld) No growth in 5 days. [facility] Magnesiumon 09-15-2023 Magnesium [Mass/Vol] 2.13 mg/dL 1.60 - 2.40 mg/dL [facility] Magnesium [Mass/Vol] 2.13 mg/dL Normal 1.60-2.40 [facility] Comment on above: Performed By: #### 1 9123-9 #### BEVERLEY Poe ([id number]) [facility] ([facility]) [address] [place] [address] 67291 Magnesium [Mass/Vol]on 09-15 Interpretation and review of laboratory results Normal [facility] Mucus LM Ql (Urine sed)Order ed By: Calvin Hester on 09-15-2023 Mucus Ql (Urine sed) 0 SEEN /hpf [facility] Nitrite Test strip Ql (U)Ord ered By: Calvin Hester on 09-15-2023 Nitrite Ql (U) Positive Negative [facility] No Panel Informationon 09-15 [facility] PT and aPTT panel Coag (PPP) on 09-15-2023 aPTT Coag (PPP) [Time] 24 s Low Un [facility] INR Coag (PPP) [Relative time] 1.0 {INR} 0.9 - 1.1 [facility] Interpretation and review of laboratory results Abnormal [facility] PT Coag (PPP) [Time] 11.6 s [facility] aPTT Coag (PPP) [Time] 24 s Low 27-38 Un [facility] Comment on above: Order Comment: The A PTT is no longer used for monitoring Unfractionated Heparin Therapy. For monitoring Heparin Therapy, use the Heparin Assay. Performed By: #### 3 4529-8 #### BEVERLEY Poe ([id number]) [facility] ([facility]) [address] [place] [address] 76627 INR Coag (PPP) [Relative time] 1.0 Normal 0.9-1.1 [facility] Comment on above: Order Comment: The A PTT is no longer used for monitoring Unfractionated Heparin Therapy. For monitoring Heparin Therapy, use the Heparin Assay. Performed By: #### 3 4529-8 #### BEVERLEY Poe ([id number]) [facility] ([facility]) [address] [place] [address] 50964 PT Coag (PPP) [Time] 11.6 s Normal 9.8-12.8 [facility] Comment on above: Order Comment: The A PTT is no longer used for monitoring Unfractionated Heparin Therapy. For monitoring Heparin Therapy, use the Heparin Assay. Performed By: #### 3 4529-8 #### BEVERLEY Poe ([id number]) [facility] ([facility]) [address] [place] [address] 94801 Protein Test strip Ql (U)Ord ered By: Calvin Hester on 09-15-2023 Protein Ql (U) 30 mg/dl Negative [facility] Squamous epithelial cells de tection in urine sediment by light microscopyOrdered By: Calvin Hester on 09-15-2023 Epithelial cells.squamous LM Ql (Urine sed) 0 SEEN /hpf 5-10 [facility] Urine blood detectionOrdered By: Calvin Hester on 09-15-2023 RBC Ql (U) 50 /ul Negative [facility] RBC Ql (U) 0-5 SEEN /hpf 0-5 [facility] Urine clarityOrdered By: Farooq Hester on 09-15-2023 Clarity (U) Clear Clear [facility] Urine color determinationOrd ered By: Calvin Hester on 09-15-2023 Color (U) Yellow Yellow [facility] Urine glucose detectionOrder ed By: Calvin Hester on 09-15-2023 Glucose Ql (U) Normal mg/dl Normal [facility] Urine leukocyte esterase det ection by dipstickOrdered By: Calvin Hester on 09-15-2023 Leukocyte esterase Test strip Ql (U) 100 /ul Negative [facility] Urine pHOrdered By: Calvin solorzano on 09-15-2023 pH (U) 6.0 [pH] 5.0 - 8.0 [facility] Urine sediment bacteria coun t by microscopy (number/high power field)Ordered By: Calvin Hester on 09-15-2023 Bacteria LM.HPF (Urine sed) [#/Area] 1 /[HPF] None Seen [facility] Urine specific gravity measu rementOrdered By: Calvin Hester on 09-15-2023 Specific gravity (U) [Rel density] 1.010 1.002-1.030 [facility] Urobilinogen Auto test strip Ql (U)Ordered By: Calvin Hester on 09-15-2023 Urobilinogen Ql (U) 1 mg/dl Normal [facility] Absolute lymphocyte countOrd ered By: Calvin Hester on 09-14-2023 Lymphocytes Auto (Unsp spec) [#/Vol] 0.70 10*3/uL 0.83-4.51 [facility] Basophil percentageOrdered B y: Calvin Hester on 09-14-2023 Basophils/100 WBC (Bld) 0.3 % 0-1 [facility] Bilirubin [Mass/Vol] 0.40 mg/dL 0.20-1.00 [facility] Comment on above: For patients on eltr ombopag therapy, use of Dimension Cookson TBIL is not recommended. Chloride [Moles/Vol] 101 mmol/L 98-107 [facility] Eosinophils/100 WBC (Bld) 0.8 % 0-5 [facility] Glucose [Mass/Vol] 134 mg/dL 74-106 [facility] Comment on above: Fasting Glucose resu lt greater than or equal to 126 mg/dL suggests DIABETES MELLITUS per A.D.A. criteria. Neutrophils (Bld) [#/Vol] 2.5 10*3/uL 2.0-7.7 [facility] Neutrophils/100 WBC (Bld) 70.5 % 47-70 [facility] Potassium [Moles/Vol] 4.0 mmol/L 3.5-5.1 [facility] Protein [Mass/Vol] 6.9 g/dL 6.4-8.2 [facility] Sodium [Moles/Vol] 144 mmol/L 136-145 [facility] WBC (Bld) [#/Vol] 3.6 10*3/uL 4.4-11.0 [facility] Blood erythrocytes count (nu mber/volume)Ordered By: Calvin Hester on 09-14-2023 RBC (Bld) [#/Vol] 2.80 10*6/uL 4.2-5.4 [facility] Blood hemoglobin measurement (mass/volume)Ordered By: Calvin Hester on 09-14-2023 Hemoglobin (Bld) [Mass/Vol] 8.3 g/dL 12.0-15.0 [facility] Blood lymphocytes/100 leukoc ytesOrdered By: Calvin Hester on 09-14-2023 Lymphocytes/100 WBC (Bld) 19.5 % 19-41 [facility] Blood monocytes/100 leukocyt esOrdered By: Calvin Hester on 09-14-2023 Monocytes/100 WBC (Bld) 7.8 % 0-10 [facility] Blood platelet mean volumeOr dered By: Calvin Hester on 09-14-2023 Platelet mean volume (Bld) [Entitic vol] 8.8 fL 6.2-12.0 [facility] Determination of erythrocyte mean corpuscular volume (MCV)Ordered By: Calvin Hester on 09-14-2023 MCV (RBC) [Entitic vol] 102.9 fL 81-99 [facility] Direct bilirubinOrdered By: Calvin Hester on 09-14-2023 Bilirubin.direct [Mass/Vol] 0.09 mg/dL 0.00-0.30 [facility] Hematocrit Auto (Bld) [Volum e fraction]Ordered By: Calvin Hester on 09-14-2023 Hematocrit (Bld) [Volume fraction] 28.8 % 37-47 [facility] INR in Blood by Coagulation assayOrdered By: Calvin Hester on 09-14-2023 INR Coag (Bld) [Relative time] 1.0 {INR} [facility] Laboratory - Chemistry and C hemistry - challengeOrdered By: Calvin Hester on 09-14-2023 ALP [Catalytic activity/Vol] 66 U/L 45-117 [facility] ALT [Catalytic activity/Vol] 18 U/L 13-56 [facility] CO2 [Moles/Vol] 41.0 mmol/L 21.0-32.0 [facility] Globulin (S) [Mass/Vol] 4.4 g/dL 2.2-4.2 [facility] Lipase [Catalytic activity/Vol] 24 U/L 13-75 [facility] Comment on above: Please note:LIPASE r evised reference range effective 23. New Lipase methodology. Expected to produce lower values than the previous assay method. NEW Reference Range: 13 - 75 U/L Urea nitrogen/Creatinine [Mass ratio] 25.5 mg/mg 10-20 [facility] Laboratory - CoagulationOrde red By: Calvin Hester on 09-14-2023 aPTT Coag (Bld) [Time] 29.8 s 24.1-36.2 [facility] PT Coag (PPP) [Time] 13.0 s 11.7-14.9 [facility] Laboratory - Hematology and Cell countsOrdered By: Calvin Hester on 09-14-2023 Erythrocyte distribution width (RBC) [Entitic vol] 53.0 fL 35.1-43.9 [facility] Erythrocyte distribution width (RBC) [Ratio] 14.1 % 11.6-14.6 [facility] Immature granulocytes/100 WBC (Bld) 1.100 % 0.0-0.9 [facility] Comment on above: IG% - Immature Granu locytes (promyelocytes, myelocytes and metamyelocytes) > 1% indicates that a LEFT SHIFT is Present. MCH (RBC) [Entitic mass] 29.6 pg 27.0-32.0 [facility] Nucleated RBC/100 WBC (Bld) [Ratio] 0 % 0-5 [facility] ([facility] [Mass/Vol]Or dered By: Calvin Hester on 09-14-2023 MCHC (RBC) [Mass/Vol] 28.8 g/dL 32-36 [facility] No Panel InformationOrdered By: Calvin Hester on 09-14-2023 Estimated Creatinine Clearance Calc 54.98 ml/min [facility] Estimated GFR (MDRD) Amer 87 mL/min >60 [facility] Comment on above: GFR Calc Estimated GFR (MDRD) Non-Af Amer 72 mL/min >60 [facility] Comment on above: Non- GFR Calc Platelets bldOrdered By: Farooq Hester on 09-14-2023 Platelets (Bld) [#/Vol] 109 10*3/uL 150-450 [facility] Serum or plasma albumin celina urement (mass/volume)Ordered By: Calvin Hester on 09-14-2023 Albumin [Mass/Vol] 2.5 g/dL 3.2-5.0 [facility] Serum or plasma calcium celina urement (mass/volume)Ordered By: Calvin Hester on 09-14-2023 Calcium [Mass/Vol] 9.0 mg/dL 8.5-10.1 [facility] Serum or plasma creatinine m easurement (mass/volume)Ordered By: Calvin Hester on 09-14-2023 Creatinine [Mass/Vol] 0.82 mg/dL 0.55-1.02 [facility] Comment on above: The validity of the calculated GFR & GFRAA in patients over 70 years has not been determined. Clinical correlation is essential. Serum or plasma urea nitroge n measurement (mass/volume)Ordered By: Calvin Hester on 09-14-2023 Urea nitrogen [Mass/Vol] 21 mg/dL 7-18 [facility] Thin prep Papanicolaou smear with manual screeningOrdered By: Calvin Hester on 09-14-2023 Thin prep Papanicolaou smear with manual screening 10 U/L 15-37 [facility] Thin prep Papanicolaou smear with manual screening 2 5-15 [facility] Basophil percentageOrdered B y: Jonathan Dillard on 09-13-2023 Bilirubin [Mass/Vol] 0.30 mg/dL 0.20-1.00 [facility] Comment on above: For patients on eltr ombopag therapy, use of Dimension [employer] TBIL is not recommended. Chloride [Moles/Vol] 103 mmol/L 98-107 [facility] Glucose [Mass/Vol] 111 mg/dL 74-106 [facility] Comment on above: Fasting Glucose resu lt from 100 to 125 mg/dL suggests IMPAIRED HOMEOSTASIS per A.D.A. criteria. Potassium [Moles/Vol] 3.8 mmol/L 3.5-5.1 [facility] Protein [Mass/Vol] 6.6 g/dL 6.4-8.2 [facility] Sodium [Moles/Vol] 145 mmol/L 136-145 [facility] WBC (Bld) [#/Vol] 2.8 10*3/uL 4.4-11.0 [facility] Blood erythrocytes count (nu mber/volume)Ordered By: Jonathan Dillard on 09-13-2023 RBC (Bld) [#/Vol] 2.62 10*6/uL 4.2-5.4 [facility] Blood hemoglobin measurement (mass/volume)Ordered By: Jonathan Dillard on 09-13-2023 Hemoglobin (Bld) [Mass/Vol] 8.0 g/dL 12.0-15.0 [facility] Blood platelet mean volumeOr dered By: Jonathan Dillard on 09-13-2023 Platelet mean volume (Bld) [Entitic vol] 8.6 fL 6.2-12.0 [facility] Determination of erythrocyte mean corpuscular volume (MCV)Ordered By: Jonathan Dillard on 09-13-2023 MCV (RBC) [Entitic vol] 103.4 fL 81-99 [facility] Hematocrit Auto (Bld) [Volum e fraction]Ordered By: Jonathan Dillard on 09-13-2023 Hematocrit (Bld) [Volume fraction] 27.1 % 37-47 [facility] Laboratory - Chemistry and C hemistry - challengeOrdered By: Jonathan Dillard on 09-13-2023 ALP [Catalytic activity/Vol] 58 U/L 45-117 [facility] ALT [Catalytic activity/Vol] 18 U/L 13-56 [facility] CO2 [Moles/Vol] 41.0 mmol/L 21.0-32.0 [facility] Globulin (S) [Mass/Vol] 4.2 g/dL 2.2-4.2 [facility] Urea nitrogen/Creatinine [Mass ratio] 34.5 mg/mg 10-20 [facility] - Hematology and Cell countsOrdered By: Jonathan Dillard on 09-13-2023 Erythrocyte distribution width (RBC) [Entitic vol] 54.3 fL 35.1-43.9 [facility] Erythrocyte distribution width (RBC) [Ratio] 14.4 % 11.6-14.6 [facility] MCH (RBC) [Entitic mass] 30.5 pg 27.0-32.0 [facility] MCHC Auto (RBC) [Mass/Vol]Or dered By: Jonathan Dillard on 09-13-2023 MCHC (RBC) [Mass/Vol] 29.5 g/dL 32-36 [facility] Comment on above: Delta: 27.9 on 09/08 No Panel InformationOrdered By: Jonathan Dillard on 09-13-2023 Estimated GFR (MDRD) Amer 148 mL/min >60 [facility] Comment on above: GFR Calc Estimated GFR (MDRD) Non-Af Amer 122 mL/min >60 [facility] Comment on above: Non- GFR Calc Platelets bldOrdered By: Mervat Dillard on 09-13-2023 Platelets (Bld) [#/Vol] 103 10*3/uL 150-450 [facility] Serum or plasma albumin celina urement (mass/volume)Ordered By: Jonathan Dillard on 09-13-2023 Albumin [Mass/Vol] 2.4 g/dL 3.2-5.0 [facility] Serum or plasma albumin/glob ulin mass ratioOrdered By: Jonathan Dillard on 09-13-2023 Albumin/Globulin [Mass ratio] 0.6 {ratio} 0.9-2.4 [facility] Serum or plasma calcium celina urement (mass/volume)Ordered By: Jonathan Dillard on 09-13-2023 Calcium [Mass/Vol] 8.7 mg/dL 8.5-10.1 [facility] Serum or plasma creatinine m easurement (mass/volume)Ordered By: Jonathan Dillard on 09-13-2023 Creatinine [Mass/Vol] 0.52 mg/dL 0.55-1.02 [facility] Comment on above: The validity of the calculated GFR & GFRAA in patients over 70 years has not been determined. Clinical correlation is essential. Serum or plasma urea nitroge n measurement (mass/volume)Ordered By: Jonathan Dillard on 09-13-2023 Urea nitrogen [Mass/Vol] 18 mg/dL 7-18 [facility] Thin prep Papanicolaou smear with manual screeningOrdered By: Jonathan Dillard on 09-13-2023 Thin prep Papanicolaou smear with manual screening 11 U/L 15-37 [facility] Thin prep Papanicolaou smear with manual screening 1 5-15 [facility] Culture, urineOrdered By: Chloe Jeffries on 09-09-2023 Bacteria identified Cx Nom (U) Mixed Gram Pos & Gram Neg Org [facility] Cytology report of Body flui d Cyto stainOrdered By: Alecia Navarrete on 09-09-2023 Cytology report Cyto stain Doc (Body fld) SEE PATHOLOGY REPORT [facility] Comment on above: Specimen submitted t o Anatomical Pathology Department for testing. Absolute lymphocyte countOrd ered By: Delfin Jeffries on 09-08-2023 Lymphocytes Auto (Unsp spec) [#/Vol] 0.60 10*3/uL 0.83-4.51 [facility] Basophil percentageOrdered B y: Delfin Jeffries on 09-08-2023 Basophil percentage >100 SEEN /hpf 0-5 [facility] Comment on above: Microscopic field is filled. Other elements may be obscured. Basophil percentage 3.4 mg/dL 2.5-4.9 [facility] Basophils/100 WBC (Bld) 0.2 % 0-1 [facility] Bilirubin [Mass/Vol] 0.40 mg/dL 0.20-1.00 [facility] Comment on above: For patients on eltr ombopag therapy, use of Dimension [employer] TBIL is not recommended. Chloride [Moles/Vol] 104 mmol/L 98-107 [facility] Eosinophils/100 WBC (Bld) 0.7 % 0-5 [facility] Glucose [Mass/Vol] 163 mg/dL 74-106 [facility] Comment on above: Fasting Glucose resu lt greater than or equal to 126 mg/dL suggests DIABETES MELLITUS per A.D.A. criteria. Neutrophils (Bld) [#/Vol] 3.5 10*3/uL 2.0-7.7 [facility] Neutrophils/100 WBC (Bld) 78.8 % 47-70 [facility] Potassium [Moles/Vol] 3.8 mmol/L 3.5-5.1 [facility] Protein [Mass/Vol] 7.1 g/dL 6.4-8.2 [facility] Sodium [Moles/Vol] 143 mmol/L 136-145 [facility] WBC (Bld) [#/Vol] 4.5 10*3/uL 4.4-11.0 [facility] Bilirubin Test strip Ql (U)O rdered By: Delfin Jeffries on 09-08-2023 Bilirubin Ql (U) Negative Negative [facility] Blood erythrocytes count (nu mber/volume)Ordered By: Delfin Jeffries on 09-08-2023 RBC (Bld) [#/Vol] 3.10 10*6/uL 4.2-5.4 [facility] Blood hemoglobin measurement (mass/volume)Ordered By: Delfin Jeffries on 09-08-2023 Hemoglobin (Bld) [Mass/Vol] 9.0 g/dL 12.0-15.0 [facility] Blood lymphocytes/100 leukoc ytesOrdered By: Delfin Jeffries on 09-08-2023 Lymphocytes/100 WBC (Bld) 13.4 % 19-41 [facility] Blood manual differential co mment interpretation (narrative result)Ordered By: Delfin Jeffries on 09-08-2023 Manual differential comment Ajit (Bld) [Interp] SCANNED [facility] Blood monocytes/100 leukocyt esOrdered By: Delfin Jeffries on 09-08-2023 Monocytes/100 WBC (Bld) 6.5 % 0-10 [facility] Blood platelet mean volumeOr dered By: Delfin Jeffries on 09-08-2023 Platelet mean volume (Bld) [Entitic vol] 8.1 fL 6.2-12.0 [facility] Culture, urineOrdered By: Chloe Jeffries on 09-08-2023 Bacteria identified Cx Nom (U) Mixed Gram Pos & Gram Neg Org [facility] Determination of erythrocyte mean corpuscular volume (MCV)Ordered By: Delfin Jeffries on 09-08-2023 MCV (RBC) [Entitic vol] 104.2 fL 81-99 [facility] Erythrocyte sedimentation ra teOrdered By: Delfin Jeffries on 09-08-2023 ESR (Bld) [Velocity] 43 mm/h 0-30 [facility] Hematocrit Auto (Bld) [Volum e fraction]Ordered By: Delfin Jeffries on 09-08-2023 Hematocrit (Bld) [Volume fraction] 32.3 % 37-47 [facility] Hemoglobin in reticulocytes (mass per reticulocyte)Ordered By: Delfin Jeffries on 09-08-2023 Hemoglobin (Reticulocytes) [Entitic mass] 26.4 pg 30-35 [facility] Iron measurement (mass/mass) Ordered By: Delfin Jeffries on 09-08-2023 Iron (Unsp spec) [Mass/Mass] 32 ug/dL 50-170 [facility] Ketones Test strip Ql (U)Ord ered By: Delfin Jeffries on 09-08-2023 Ketones Ql (U) 5 mg/dl Negative [facility] Laboratory - Chemistry and C hemistry - challengeOrdered By: Delfin Jeffries on 09-08-2023 ALP [Catalytic activity/Vol] 69 U/L 45-117 [facility] ALT [Catalytic activity/Vol] 17 U/L 13-56 [facility] CO2 [Moles/Vol] 38.0 mmol/L 21.0-32.0 [facility] Cobalamin (Vitamin B12) [Mass/Vol] 1331 pg/mL 211-911 [facility] Globulin (S) [Mass/Vol] 4.5 g/dL 2.2-4.2 [facility] Magnesium [Mass/Vol] 2.1 mg/dL 1.6-2.6 [facility] Urea nitrogen/Creatinine [Mass ratio] 31.6 mg/mg 10-20 [facility] - Hematology and Cell countsOrdered By: Delfin Jeffries on 09-08-2023 Erythrocyte distribution width (RBC) [Entitic vol] 55.1 fL 35.1-43.9 [facility] Erythrocyte distribution width (RBC) [Ratio] 14.6 % 11.6-14.6 [facility] Immature granulocytes/100 WBC (Bld) 0.400 % 0.0-0.9 [facility] Comment on above: IG% - Immature Granu locytes (promyelocytes, myelocytes and metamyelocytes) > 1% indicates that a LEFT SHIFT is Present. MCH (RBC) [Entitic mass] 29.0 pg 27.0-32.0 [facility] Nucleated RBC/100 WBC (Bld) [Ratio] 0 % 0-5 [facility] MCHC Auto (RBC) [Mass/Vol]Or dered By: Delfin Jeffries on 09-08-2023 MCHC (RBC) [Mass/Vol] 27.9 g/dL 32-36 [facility] Mucus LM Ql (Urine sed)Order ed By: Delfin Jeffries on 09-08-2023 Mucus Ql (Urine sed) 0 SEEN /hpf [facility] Nitrite Test strip Ql (U)Ord ered By: Delfin Jeffries on 09-08-2023 Nitrite Ql (U) Negative Negative [facility] No Panel InformationOrdered By: Delfin Jeffries on 09-08-2023 Estimated Creatinine Clearance Calc 43.27 ml/min [facility] Estimated GFR (MDRD) Amer 118 mL/min >60 [facility] Comment on above: GFR Calc Estimated GFR (MDRD) Non-Af Amer 98 mL/min >60 [facility] Comment on above: Non- GFR Calc Immature Reticulocyte Fraction 17.60 % 3.00-15.90 [facility] Reticulocyte Count 2.46 % 0.5-1.5 [facility] Total Iron Binding Capacity 216 ug/dL 250-450 [facility] Platelets bldOrdered By: Luciano Jeffries on 09-08-2023 Platelets (Bld) [#/Vol] 113 10*3/uL 150-450 [facility] Protein Test strip Ql (U)Ord ered By: Delfin Jeffries on 09-08-2023 Protein Ql (U) 500 mg/dl Negative [facility] Serum or plasma C reactive p rotein measurement (mass/volume)Ordered By: Delfin Benson on 09-08-2023 CRP [Mass/Vol] 81.40 mg/L 0.0-3.0 [facility] Comment on above: C-Reactive Protein ( CRP) provides useful information for thediagnosis, therapy and monitoring of inflammatory processesand associated diseases. For the evaluation of Relative Riskfor Cardiovascular Disease, a High Sensitivity CRP (HSCRP)should be ordered. Serum or plasma albumin celina urement (mass/volume)Ordered By: Delfin Jeffries on 09-08-2023 Albumin [Mass/Vol] 2.6 g/dL 3.2-5.0 [facility] Serum or plasma albumin/glob ulin mass ratioOrdered By: Delfin Jeffries on 09-08-2023 Albumin/Globulin [Mass ratio] 0.6 {ratio} 0.9-2.4 [facility] Serum or plasma calcium celina urement (mass/volume)Ordered By: Delfin Benson on 09-08-2023 Calcium [Mass/Vol] 8.7 mg/dL 8.5-10.1 [facility] Serum or plasma creatinine m easurement (mass/volume)Ordered By: Delfin Benson on 09-08-2023 Creatinine [Mass/Vol] 0.63 mg/dL 0.55-1.02 [facility] Comment on above: The validity of the calculated GFR & GFRAA in patients over 70 years has not been determined. Clinical correlation is essential. Serum or plasma ferritin carter surement (mass/volume)Ordered By: Delfin Jeffries on 09-08-2023 Ferritin [Mass/Vol] 243 ng/mL 8-252 [facility] Serum or plasma folate measu rement (mass/volume)Ordered By: Delfin Jeffries on 09-08-2023 Folate [Mass/Vol] 84.50 ng/mL 3.1-55.4 [facility] Serum or plasma iron saturat ion measurement (mass fraction)Ordered By: Delfin Jeffries on 09-08-2023 Iron saturation [Mass fraction] 14.8 % 15.0-55.0 [facility] Serum or plasma urea nitroge n measurement (mass/volume)Ordered By: Delfin Jeffries on 09-08-2023 Urea nitrogen [Mass/Vol] 20 mg/dL 7-18 [facility] Squamous epithelial cells de tection in urine sediment by light microscopyOrdered By: Delfin Jeffries on 09-08-2023 Epithelial cells.squamous LM Ql (Urine sed) 0 SEEN /hpf 5-10 [facility] Thin prep Papanicolaou smear with manual screeningOrdered By: Delfin Jeffries on 09-08-2023 Thin prep Papanicolaou smear with manual screening 15 U/L 15-37 [facility] Thin prep Papanicolaou smear with manual screening 1 5-15 [facility] Urine blood detectionOrdered By: Delfin Jeffries on 09-08-2023 RBC Ql (U) 250 /ul Negative [facility] RBC Ql (U) > 100 SEEN /hpf 0-5 [facility] Comment on above: Microscopic field is filled. Other elements may be obscured. Urine clarityOrdered By: Luciano Jeffries on 09-08-2023 Clarity (U) Cloudy Clear [facility] Urine color determinationOrd ered By: Delfin Jeffries on 09-08-2023 Color (U) Brown Yellow [facility] Urine glucose detectionOrder ed By: Delfin Jeffries on 09-08-2023 Glucose Ql (U) Normal mg/dl Normal [facility] Urine leukocyte esterase det ection by dipstickOrdered By: Delfin Jeffries on 09-08-2023 Leukocyte esterase Test strip Ql (U) 100 /ul Negative [facility] Urine pHOrdered By: Delfin elizabeth on 09-08-2023 pH (U) 5.0 [pH] 5.0 - 8.0 [facility] Urine sediment bacteria coun t by microscopy (number/high power field)Ordered By: Delfin Jeffries on 09-08-2023 Bacteria LM.HPF (Urine sed) [#/Area] 0 /[HPF] None Seen [facility] Urine specific gravity measu rementOrdered By: Delfin Jeffries on 09-08-2023 Specific gravity (U) [Rel density] 1.020 1.002-1.030 [facility] Urobilinogen Auto test strip Ql (U)Ordered By: Delfin Jeffries on 09-08-2023 Urobilinogen Ql (U) Normal mg/dl Normal [facility] Basophil percentageOrdered B y: Jonathan Dillard on 08-31-2023 Basophil percentage >100 SEEN /hpf 0-5 [facility] Chloride [Moles/Vol] 104 mmol/L 98-107 [facility] Glucose [Mass/Vol] 110 mg/dL 74-106 [facility] Comment on above: Fasting Glucose resu lt from 100 to 125 mg/dL suggests IMPAIRED HOMEOSTASIS per A.D.A. criteria. Potassium [Moles/Vol] 3.9 mmol/L 3.5-5.1 [facility] Sodium [Moles/Vol] 146 mmol/L 136-145 [facility] WBC (Bld) [#/Vol] 3.7 10*3/uL 4.4-11.0 [facility] Bilirubin Test strip Ql (U)O rdered By: Jonathan Dillard on 08-31-2023 Bilirubin Ql (U) Negative Negative [facility] Blood erythrocytes count (nu mber/volume)Ordered By: Jonathan Dillard on 08-31-2023 RBC (Bld) [#/Vol] 2.85 10*6/uL 4.2-5.4 [facility] Blood hemoglobin measurement (mass/volume)Ordered By: Jonathan Dillard on 08-31-2023 Hemoglobin (Bld) [Mass/Vol] 8.5 g/dL 12.0-15.0 [facility] Blood manual differential co mment interpretation (narrative result)Ordered By: Jonathan Dillard on 08-31-2023 Manual differential comment Ajit (Bld) [Interp] COMMENT [facility] Comment on above: PLT POPULATION - MOD ERATELY DECREASED. Blood platelet mean volumeOr dered By: Jonathan Dillard on 08-31-2023 Platelet mean volume (Bld) [Entitic vol] 9.6 fL 6.2-12.0 [facility] Culture, urineOrdered By: Higuera on 08-31-2023 Bacteria identified Cx Nom (U) Mixed Gram Pos & Gram Neg Org [facility] Determination of erythrocyte mean corpuscular volume (MCV)Ordered By: Jonathan Dillard on 08-31-2023 MCV (RBC) [Entitic vol] 102.8 fL 81-99 [facility] Hematocrit Auto (Bld) [Volum e fraction]Ordered By: Jonathan Dillard on 08-31-2023 Hematocrit (Bld) [Volume fraction] 29.3 % 37-47 [facility] Ketones Test strip Ql (U)Ord ered By: Jonathan Dillard on 08-31-2023 Ketones Ql (U) Negative Negative [facility] Laboratory - Chemistry and C hemistry - challengeOrdered By: Jonathan Dillard on 08-31-2023 CO2 [Moles/Vol] 39.0 mmol/L 21.0-32.0 [facility] Urea nitrogen/Creatinine [Mass ratio] 37.5 mg/mg 10-20 [facility] - Hematology and Cell countsOrdered By: Jonathan Dillard on 08-31-2023 Erythrocyte distribution width (RBC) [Entitic vol] 54.3 fL 35.1-43.9 [facility] Erythrocyte distribution width (RBC) [Ratio] 14.4 % 11.6-14.6 [facility] MCH (RBC) [Entitic mass] 29.8 pg 27.0-32.0 [facility] MCHC Auto (RBC) [Mass/Vol]Or dered By: Jonathan Dillard on 08-31-2023 MCHC (RBC) [Mass/Vol] 29.0 g/dL 32-36 [facility] Mucus LM Ql (Urine sed)Order ed By: Jonathan Dillard on 08-31-2023 Mucus Ql (Urine sed) 0 SEEN /hpf [facility] Nitrite Test strip Ql (U)Ord ered By: Jonathan Dillard on 08-31-2023 Nitrite Ql (U) Negative Negative [facility] No Panel InformationOrdered By: Jonathan Dillard on 08-31-2023 Estimated GFR (MDRD) Amer 153 mL/min >60 [facility] Comment on above: GFR Calc Estimated GFR (MDRD) Non-Af Amer 127 mL/min >60 [facility] Comment on above: Non- GFR Calc Platelets bldOrdered By: Mervat Dillard on 08-31-2023 Platelets (Bld) [#/Vol] 96 10*3/uL 150-450 [facility] Protein Test strip Ql (U)Ord ered By: Jonathan Dillard on 08-31-2023 Protein Ql (U) 100 mg/dl Negative [facility] Serum or plasma calcium celina urement (mass/volume)Ordered By: Jonathan Dillard on 08-31-2023 Calcium [Mass/Vol] 9.5 mg/dL 8.5-10.1 [facility] Serum or plasma creatinine m easurement (mass/volume)Ordered By: Jonathan Dillard on 08-31-2023 Creatinine [Mass/Vol] 0.51 mg/dL 0.55-1.02 [facility] Comment on above: The validity of the calculated GFR & GFRAA in patients over 70 years has not been determined. Clinical correlation is essential. Serum or plasma urea nitroge n measurement (mass/volume)Ordered By: Jonathan Dillard on 08-31-2023 Urea nitrogen [Mass/Vol] 19 mg/dL - [facility] Squamous epithelial cells de tection in urine sediment by light microscopyOrdered By: Jonathan Dillard on 08-31-2023 Epithelial cells.squamous LM Ql (Urine sed) 0 SEEN /hpf 5-10 [facility] Thin prep Papanicolaou smear with manual screeningOrdered By: Jonathan Dillard on 08-31-2023 Thin prep Papanicolaou smear with manual screening 3 5-15 [facility] Urine blood detectionOrdered By: Jonathan Dillard on 08-31-2023 RBC Ql (U) 250 /ul Negative [facility] RBC Ql (U) > 100 SEEN /hpf 0-5 [facility] Urine clarityOrdered By: Mervat Dillard on 08-31-2023 Clarity (U) Cloudy Clear [facility] Urine color determinationOrd ered By: Jonathan Dillard on 08-31-2023 Color (U) Yellow Yellow [facility] Urine glucose detectionOrder ed By: Jonathan Dillard on 08-31-2023 Glucose Ql (U) Normal mg/dl Normal [facility] Urine leukocyte esterase det ection by dipstickOrdered By: Jonathan Dillard on 08-31-2023 Leukocyte esterase Test strip Ql (U) 500 /ul Negative [facility] Urine pHOrdered By: Jonathan ramirez on 08-31-2023 pH (U) 6.0 [pH] 5.0 - 8.0 [facility] Urine sediment bacteria coun t by microscopy (number/high power field)Ordered By: Jonathan Dillard on 08-31-2023 Bacteria LM.HPF (Urine sed) [#/Area] 2 /[HPF] None Seen [facility] Urine specific gravity measu rementOrdered By: Jonathan Dillard on 08-31-2023 Specific gravity (U) [Rel density] 1.015 1.002-1.030 [facility] Urobilinogen Auto test strip Ql (U)Ordered By: Jonathan Dillard on 08-31-2023 Urobilinogen Ql (U) Normal mg/dl Normal [facility] Culture, urineOrdered By: Higuera on 08-17-2023 Bacteria identified Cx Nom (U) Mixed Gram Pos & Gram Neg Org [facility] XR BARIUM ENEMA COMPLETEon 1 XR BARIUM [...] 3:50:07 PM Ordering Provider: MARK JEREZ [facility] ([place]) Basophil percentageOrdered B y: Jonathan Dillard on 08-16-2023 Basophil percentage 0-5 SEEN /hpf 0-5 [facility] Bilirubin Test strip Ql (U)O rdered By: Jonathan Dillard on 08-16-2023 Bilirubin Ql (U) Negative Negative [facility] Culture, urineOrdered By: Higuera on 08-16-2023 Bacteria identified Cx Nom (U) Mixed Gram Pos & Gram Neg Org [facility] Hyaline casts LM.LPF (Urine sed) [#/Area]Ordered By: Jonathan Dillard on 08-16-2023 Hyaline casts (Urine sed) [#/Area] 5 /[LPF] 0-5 [facility] Ketones Test strip Ql (U)Ord ered By: Jonathan Dillard on 08-16-2023 Ketones Ql (U) 5 mg/dl Negative [facility] Mucus LM Ql (Urine sed)Order ed By: Jonathan Dillard on 08-16-2023 Mucus Ql (Urine sed) 0 SEEN /hpf [facility] Nitrite Test strip Ql (U)Ord ered By: Jonathan Dillard on 08-16-2023 Nitrite Ql (U) Negative Negative [facility] Protein Test strip Ql (U)Ord ered By: Jonathan Dillard on 08-16-2023 Protein Ql (U) 100 mg/dl Negative [facility] Squamous epithelial cells de tection in urine sediment by light microscopyOrdered By: Jonathan Dillard on 08-16-2023 Epithelial cells.squamous LM Ql (Urine sed) 5-10 SEEN /hpf 5-10 [facility] Urine blood detectionOrdered By: Jonathan Dillard on 08-16-2023 RBC Ql (U) 150 /ul Negative [facility] RBC Ql (U) 5-10 SEEN /hpf 0-5 [facility] Urine clarityOrdered By: Mervat Dillard on 08-16-2023 Clarity (U) Sl. Cloudy Clear [facility] Urine color determinationOrd ered By: Jonathan Dillard on 08-16-2023 Color (U) Yellow Yellow [facility] Urine glucose detectionOrder ed By: Jonathan Dillard on 08-16-2023 Glucose Ql (U) Normal mg/dl Normal [facility] Urine leukocyte esterase det ection by dipstickOrdered By: Jonathan Dillard on 08-16-2023 Leukocyte esterase Test strip Ql (U) 25 /ul Negative [facility] Urine pHOrdered By: Jonathan ramirez on 08-16-2023 pH (U) 5.0 [pH] 5.0 - 8.0 [facility] Urine sediment bacteria coun t by microscopy (number/high power field)Ordered By: Jonathan Dillard on 08-16-2023 Bacteria LM.HPF (Urine sed) [#/Area] 1 /[HPF] None Seen [facility] Urine specific gravity measu rementOrdered By: Jonathan Dillard on 08-16-2023 Specific gravity (U) [Rel density] 1.025 1.002-1.030 [facility] Urobilinogen Auto test strip Ql (U)Ordered By: Jonathan Dillard on 08-16-2023 Urobilinogen Ql (U) Normal mg/dl Normal [facility] LABORATORYOrdered By: Amy Gomez on 08-15-2023 Glucose [Mass/Vol] 147 mg/dL Invalid Interpretation Code 82 - 115 mg/dL [facility] Work Phone: XR [phone] APon [...] 08/15/2023 12:08:09 PM Ordering Provider: MARK JEREZ [facility] ([place]) Absolute lymphocyte countOrd ered By: Calvin Hester on 08-10-2023 Lymphocytes Auto (Unsp spec) [#/Vol] 0.52 10*3/uL 0.83-4.51 [facility] Basophil percentageOrdered B y: Calvin Hester on 08-10-2023 Basophils/100 WBC (Bld) 0.1 % 0-1 [facility] Chloride [Moles/Vol] 103 mmol/L 98-107 [facility] Eosinophils/100 WBC (Bld) 0.4 % 0-5 [facility] Glucose [Mass/Vol] 149 mg/dL 74-106 [facility] Comment on above: Fasting Glucose resu lt greater than or equal to 126 mg/dL suggests DIABETES MELLITUS per A.D.A. criteria. Neutrophils (Bld) [#/Vol] 5.8 10*3/uL 2.0-7.7 [facility] Neutrophils/100 WBC (Bld) 85.8 % 47-70 [facility] Potassium [Moles/Vol] 4.1 mmol/L 3.5-5.1 [facility] Sodium [Moles/Vol] 144 mmol/L 136-145 [facility] WBC (Bld) [#/Vol] 6.8 10*3/uL 4.4-11.0 [facility] Blood erythrocytes count (nu mber/volume)Ordered By: Calvin Hester on 08-10-2023 RBC (Bld) [#/Vol] 3.38 10*6/uL 4.2-5.4 [facility] Blood hemoglobin measurement (mass/volume)Ordered By: Calvin Hester on 08-10-2023 Hemoglobin (Bld) [Mass/Vol] 9.9 g/dL 12.0-15.0 [facility] Blood lymphocytes/100 leukoc ytesOrdered By: Calvin Hester on 08-10-2023 Lymphocytes/100 WBC (Bld) 7.6 % 19-41 [facility] Blood manual differential co mment interpretation (narrative result)Ordered By: Calvin Hester on 08-10-2023 Manual differential comment Ajit (Bld) [Interp] SCANNED [facility] Comment on above: LYMPHOPENIA NOTED Blood monocytes/100 leukocyt esOrdered By: Calvin Hester on 08-10-2023 Monocytes/100 WBC (Bld) 5.7 % 0-10 [facility] Blood platelet mean volumeOr dered By: Calvin Hester on 08-10-2023 Platelet mean volume (Bld) [Entitic vol] 9.1 fL 6.2-12.0 [facility] Determination of erythrocyte mean corpuscular volume (MCV)Ordered By: Calvin Hester on 08-10-2023 MCV (RBC) [Entitic vol] 100.0 fL 81-99 [facility] Hematocrit Auto (Bld) [Volum e fraction]Ordered By: Calvin Hester on 08-10-2023 Hematocrit (Bld) [Volume fraction] 33.8 % 37-47 [facility] Laboratory - Chemistry and C hemistry - challengeOrdered By: Calvin Hester on 08-10-2023 CO2 [Moles/Vol] 40.0 mmol/L 21.0-32.0 [facility] Magnesium [Mass/Vol] 2.1 mg/dL 1.6-2.6 [facility] Urea nitrogen/Creatinine [Mass ratio] 29.3 mg/mg 10-20 [facility] - Hematology and Cell countsOrdered By: Calvin Hester on 08-10-2023 Erythrocyte distribution width (RBC) [Entitic vol] 51.8 fL 35.1-43.9 [facility] Erythrocyte distribution width (RBC) [Ratio] 14.1 % 11.6-14.6 [facility] Immature granulocytes/100 WBC (Bld) 0.400 % 0.0-0.9 [facility] Comment on above: IG% - Immature Granu locytes (promyelocytes, myelocytes and metamyelocytes) > 1% indicates that a LEFT SHIFT is Present. MCH (RBC) [Entitic mass] 29.3 pg 27.0-32.0 [facility] Nucleated RBC/100 WBC (Bld) [Ratio] 0 % 0-5 [facility] MCHC Auto (RBC) [Mass/Vol]Or dered By: Calvin Hester on 08-10-2023 MCHC (RBC) [Mass/Vol] 29.3 g/dL 32-36 [facility] No Panel InformationOrdered By: Calvin Hester on 08-10-2023 Estimated Creatinine Clearance Calc 45.09 ml/min [facility] Estimated GFR (MDRD) Amer 123 mL/min >60 [facility] Comment on above: GFR Calc Estimated GFR (MDRD) Non-Af Amer 101 mL/min >60 [facility] Comment on above: Non- GFR Calc Platelets bldOrdered By: Farooq Hester on 08-10-2023 Platelets (Bld) [#/Vol] 108 10*3/uL 150-450 [facility] Serum or plasma calcium celina urement (mass/volume)Ordered By: Calvin Hester on 08-10-2023 Calcium [Mass/Vol] 8.4 mg/dL 8.5-10.1 [facility] Serum or plasma creatinine m easurement (mass/volume)Ordered By: Calvin Hester on 08-10-2023 Creatinine [Mass/Vol] 0.61 mg/dL 0.55-1.02 [facility] Comment on above: The validity of the calculated GFR & GFRAA in patients over 70 years has not been determined. Clinical correlation is essential. Serum or plasma urea nitroge n measurement (mass/volume)Ordered By: Calvin Hester on 08-10-2023 Urea nitrogen [Mass/Vol] 18 mg/dL 7-18 [facility] Thin prep Papanicolaou smear with manual screeningOrdered By: Calvin Hester on 08-10-2023 Thin prep Papanicolaou smear with manual screening 1 5-15 [facility] Absolute lymphocyte countOrd ered By: Shahnaz Way on 07-14-2023 Lymphocytes Auto (Unsp spec) [#/Vol] 0.68 10*3/uL 0.83-4.51 [facility] Basophil percentageOrdered B y: Shahnaz Way on 07-14-2023 Basophil percentage 0 SEEN /hpf 0-5 [facility] Basophils/100 WBC (Bld) 0.2 % 0-1 [facility] Bilirubin [Mass/Vol] 0.30 mg/dL 0.20-1.00 [facility] Comment on above: For patients on eltr ombopag therapy, use of Dimension [employer]son TBIL is not recommended. Chloride [Moles/Vol] 103 mmol/L 98-107 [facility] Eosinophils/100 WBC (Bld) 1.3 % 0-5 [facility] Glucose [Mass/Vol] 127 mg/dL 74-106 [facility] Comment on above: Fasting Glucose resu lt greater than or equal to 126 mg/dL suggests DIABETES MELLITUS per A.D.A. criteria. Neutrophils (Bld) [#/Vol] 3.6 10*3/uL 2.0-7.7 [facility] Neutrophils/100 WBC (Bld) 76.9 % 47-70 [facility] Potassium [Moles/Vol] 3.7 mmol/L 3.5-5.1 [facility] Protein [Mass/Vol] 7.0 g/dL 6.4-8.2 [facility] Sodium [Moles/Vol] 144 mmol/L 136-145 [facility] WBC (Bld) [#/Vol] 4.6 10*3/uL 4.4-11.0 [facility] Bilirubin Test strip Ql (U)O rdered By: Shahnaz Way on 07-14-2023 Bilirubin Ql (U) Negative Negative [facility] Blood erythrocytes count (nu mber/volume)Ordered By: Shahnaz Way on 07-14-2023 RBC (Bld) [#/Vol] 3.10 10*6/uL 4.2-5.4 [facility] Blood hemoglobin measurement (mass/volume)Ordered By: Shahnaz Way on 07-14-2023 Hemoglobin (Bld) [Mass/Vol] 8.8 g/dL 12.0-15.0 [facility] Blood lymphocytes/100 leukoc ytesOrdered By: Shahnaz Way on 07-14-2023 Lymphocytes/100 WBC (Bld) 14.7 % 19-41 [facility] Blood monocytes/100 leukocyt esOrdered By: Shahnaz Way on 07-14-2023 Monocytes/100 WBC (Bld) 6.5 % 0-10 [facility] Blood platelet mean volumeOr dered By: Shahnaz Way on 07-14-2023 Platelet mean volume (Bld) [Entitic vol] 8.9 fL 6.2-12.0 [facility] Determination of erythrocyte mean corpuscular volume (MCV)Ordered By: Shahnaz Way on 07-14-2023 MCV (RBC) [Entitic vol] 101.3 fL 81-99 [facility] Hematocrit Auto (Bld) [Volum e fraction]Ordered By: Shahnaz Way on 07-14-2023 Hematocrit (Bld) [Volume fraction] 31.4 % 37-47 [facility] Ketones Test strip Ql (U)Ord ered By: Shahnaz Way on 07-14-2023 Ketones Ql (U) Negative Negative [facility] Laboratory - Chemistry and C hemistry - challengeOrdered By: Shahnaz Way on 07-14-2023 ALP [Catalytic activity/Vol] 76 U/L 45-117 [facility] ALT [Catalytic activity/Vol] 25 U/L 13-56 [facility] CO2 [Moles/Vol] 40.0 mmol/L 21.0-32.0 [facility] Globulin (S) [Mass/Vol] 4.4 g/dL 2.2-4.2 [facility] Urea nitrogen/Creatinine [Mass ratio] 37.6 mg/mg 10-20 [facility] Laboratory - Hematology and Cell countsOrdered By: Shahnaz Way on 07-14-2023 Erythrocyte distribution width (RBC) [Entitic vol] 53.1 fL 35.1-43.9 [facility] Erythrocyte distribution width (RBC) [Ratio] 14.4 % 11.6-14.6 [facility] Immature granulocytes/100 WBC (Bld) 0.400 % 0.0-0.9 [facility] Comment on above: IG% - Immature Granu locytes (promyelocytes, myelocytes and metamyelocytes) > 1% indicates that a LEFT SHIFT is Present. MCH (RBC) [Entitic mass] 28.4 pg 27.0-32.0 [facility] Nucleated RBC/100 WBC (Bld) [Ratio] 0 % 0-5 [facility] MCHC Auto (RBC) [Mass/Vol]Or dered By: Shahnaz Way on 07-14-2023 MCHC (RBC) [Mass/Vol] 28.0 g/dL 32-36 [facility] Mucus LM Ql (Urine sed)Order ed By: Shahnaz Way on 07-14-2023 Mucus Ql (Urine sed) 0 SEEN /hpf [facility] Nitrite Test strip Ql (U)Ord ered By: Shahnaz Way on 07-14-2023 Nitrite Ql (U) Negative Negative [facility] No Panel InformationOrdered By: Shahnaz Way on 07-14-2023 Estimated Creatinine Clearance Calc 45.09 ml/min [facility] Estimated GFR (MDRD) Amer 123 mL/min >60 [facility] Comment on above: GFR Calc Estimated GFR (MDRD) Non-Af Amer 102 mL/min >60 [facility] Comment on above: Non- GFR Calc Platelets bldOrdered By: Jaimee Way on 07-14-2023 Platelets (Bld) [#/Vol] 117 10*3/uL 150-450 [facility] Protein Test strip Ql (U)Ord ered By: Shahnaz Way on 07-14-2023 Protein Ql (U) 15 mg/dl Negative [facility] Serum or plasma albumin celina urement (mass/volume)Ordered By: Shahnaz Way on 07-14-2023 Albumin [Mass/Vol] 2.6 g/dL 3.2-5.0 [facility] Serum or plasma albumin/glob ulin mass ratioOrdered By: Shahnaz Way on 07-14-2023 Albumin/Globulin [Mass ratio] 0.6 {ratio} 0.9-2.4 [facility] Serum or plasma calcium celina urement (mass/volume)Ordered By: Shahnaz Way on 07-14-2023 Calcium [Mass/Vol] 8.8 mg/dL 8.5-10.1 [facility] Serum or plasma creatinine m easurement (mass/volume)Ordered By: Shahnaz Way on 07-14-2023 Creatinine [Mass/Vol] 0.61 mg/dL 0.55-1.02 [facility] Comment on above: The validity of the calculated GFR & GFRAA in patients over 70 years has not been determined. Clinical correlation is essential. Serum or plasma urea nitroge n measurement (mass/volume)Ordered By: Shahnaz Way on 07-14-2023 Urea nitrogen [Mass/Vol] 23 mg/dL 7-18 [facility] Squamous epithelial cells de tection in urine sediment by light microscopyOrdered By: Shahnaz Way on 07-14-2023 Epithelial cells.squamous LM Ql (Urine sed) 0 SEEN /hpf 5-10 [facility] Thin prep Papanicolaou smear with manual screeningOrdered By: Shahnaz Way on 07-14-2023 Thin prep Papanicolaou smear with manual screening 17 U/L 15-37 [facility] Thin prep Papanicolaou smear with manual screening 1 5-15 [facility] Urine blood detectionOrdered By: Shahnaz Way on 07-14-2023 RBC Ql (U) Negative Negative [facility] RBC Ql (U) 0-5 SEEN /hpf 0-5 [facility] Urine clarityOrdered By: Jaimee Way on 07-14-2023 Clarity (U) Clear Clear [facility] Urine color determinationOrd ered By: Shahnaz Way on 07-14-2023 Color (U) Yellow Yellow [facility] Urine glucose detectionOrder ed By: Shahnaz Way on 07-14-2023 Glucose Ql (U) Normal mg/dl Normal [facility] Urine leukocyte esterase det ection by dipstickOrdered By: Shahnaz Way on 07-14-2023 Leukocyte esterase Test strip Ql (U) Negative Negative [facility] Urine pHOrdered By: Shahnaz hoffman on 07-14-2023 pH (U) 6.0 [pH] 5.0 - 8.0 [facility] Urine sediment bacteria coun t by microscopy (number/high power field)Ordered By: Shahnaz Way on 07-14-2023 Bacteria LM.HPF (Urine sed) [#/Area] 0 /[HPF] None Seen [facility] Urine specific gravity measu rementOrdered By: Shahnaz Way on 07-14-2023 Specific gravity (U) [Rel density] 1.020 1.002-1.030 [facility] Urobilinogen Auto test strip Ql (U)Ordered By: Shahnaz Way on 07-14-2023 Urobilinogen Ql (U) Normal mg/dl Normal [facility] Basophil percentageOrdered B y: Jonathan Dillard on 06-28-2023 Bilirubin [Mass/Vol] 0.40 mg/dL 0.20-1.00 [facility] Comment on above: For patients on eltr ombopag therapy, use of Dimension [employer] TBIL is not recommended. Chloride [Moles/Vol] 101 mmol/L 98-107 [facility] Glucose [Mass/Vol] 117 mg/dL 74-106 [facility] Comment on above: Fasting Glucose resu lt from 100 to 125 mg/dL suggests IMPAIRED HOMEOSTASIS per A.D.A. criteria. Potassium [Moles/Vol] 3.9 mmol/L 3.5-5.1 [facility] Protein [Mass/Vol] 6.8 g/dL 6.4-8.2 [facility] Sodium [Moles/Vol] 145 mmol/L 136-145 [facility] WBC (Bld) [#/Vol] 4.6 10*3/uL 4.4-11.0 [facility] Blood erythrocytes count (nu mber/volume)Ordered By: Jonathan Dillard on 06-28-2023 RBC (Bld) [#/Vol] 3.02 10*6/uL 4.2-5.4 [facility] Blood hemoglobin measurement (mass/volume)Ordered By: Jonathan Dillard on 06-28-2023 Hemoglobin (Bld) [Mass/Vol] 8.6 g/dL 12.0-15.0 [facility] Blood platelet mean volumeOr dered By: Jonathan Dillard on 06-28-2023 Platelet mean volume (Bld) [Entitic vol] 9.0 fL 6.2-12.0 [facility] Determination of erythrocyte mean corpuscular volume (MCV)Ordered By: Jonathan Dillard on 06-28-2023 MCV (RBC) [Entitic vol] 101.7 fL 81-99 [facility] Hematocrit Auto (Bld) [Volum e fraction]Ordered By: Jonathan Dillard on 06-28-2023 Hematocrit (Bld) [Volume fraction] 30.7 % 37-47 [facility] Laboratory - Chemistry and C hemistry - challengeOrdered By: Jonathan Dillard on 06-28-2023 ALP [Catalytic activity/Vol] 72 U/L 45-117 [facility] ALT [Catalytic activity/Vol] 16 U/L 13-56 [facility] CO2 [Moles/Vol] 43.0 mmol/L 21.0-32.0 [facility] Globulin (S) [Mass/Vol] 4.2 g/dL 2.2-4.2 [facility] Lipase [Catalytic activity/Vol] 18 U/L 13-75 [facility] Comment on above: Please note:LIPASE r evised reference range effective 23. New Lipase methodology. Expected to produce lower values than the previous assay method. NEW Reference Range: 13 - 75 U/L Urea nitrogen/Creatinine [Mass ratio] 32.5 mg/mg 10-20 [facility] Laboratory - Hematology and Cell countsOrdered By: Jonathan Dillard on 06-28-2023 Erythrocyte distribution width (RBC) [Entitic vol] 53.0 fL 35.1-43.9 [facility] Erythrocyte distribution width (RBC) [Ratio] 14.1 % 11.6-14.6 [facility] MCH (RBC) [Entitic mass] 28.5 pg 27.0-32.0 [facility] MCHC Auto (RBC) [Mass/Vol]Or dered By: Jonathan Dillard on 06-28-2023 MCHC (RBC) [Mass/Vol] 28.0 g/dL 32-36 [facility] No Panel InformationOrdered By: Jonathan Dillard on 08-15-2023 Estimated GFR (MDRD) Amer 115 mL/min >60 [facility] Comment on above: GFR Calc Estimated GFR (MDRD) Non-Af Amer 95 mL/min >60 [facility] Comment on above: Non- GFR Calc Platelets bldOrdered By: Mervat Dillard on 06-28-2023 Platelets (Bld) [#/Vol] 111 10*3/uL 150-450 [facility] Serum or plasma albumin celina urement (mass/volume)Ordered By: Jonathan Dillard on 06-28-2023 Albumin [Mass/Vol] 2.6 g/dL 3.2-5.0 [facility] Serum or plasma albumin/glob ulin mass ratioOrdered By: Jonathan Dillard on 06-28-2023 Albumin/Globulin [Mass ratio] 0.6 {ratio} 0.9-2.4 [facility] Serum or plasma calcium celina urement (mass/volume)Ordered By: Jonathan Dillard on 06-28-2023 Calcium [Mass/Vol] 9.0 mg/dL 8.5-10.1 [facility] Serum or plasma creatinine m easurement (mass/volume)Ordered By: Jonathan Dillard on 06-28-2023 Creatinine [Mass/Vol] 0.65 mg/dL 0.55-1.02 [facility] Comment on above: The validity of the calculated GFR & GFRAA in patients over 70 years has not been determined. Clinical correlation is essential. Serum or plasma urea nitroge n measurement (mass/volume)Ordered By: Jonathan Dillard on 06-28-2023 Urea nitrogen [Mass/Vol] 21 mg/dL 7-18 [facility] Thin prep Papanicolaou smear with manual screeningOrdered By: Jonathan Dillard on 06-28-2023 Thin prep Papanicolaou smear with manual screening 12 U/L 15-37 [facility] Thin prep Papanicolaou smear with manual screening 1 -15 [facility] Basophil percentageOrdered B y: Jonathan Dillard on 06-13-2023 Bilirubin [Mass/Vol] 0.40 mg/dL 0.20-1.00 [facility] Comment on above: For patients on eltr ombopag therapy, use of Dimension [employer] TBIL is not recommended. Chloride [Moles/Vol] 104 mmol/L 98-107 [facility] Glucose [Mass/Vol] 114 mg/dL 74-106 [facility] Comment on above: Fasting Glucose resu lt from 100 to 125 mg/dL suggests IMPAIRED HOMEOSTASIS per A.D.A. criteria. Potassium [Moles/Vol] 4.0 mmol/L 3.5-5.1 [facility] Protein [Mass/Vol] 6.8 g/dL 6.4-8.2 [facility] Sodium [Moles/Vol] 146 mmol/L 136-145 [facility] WBC (Bld) [#/Vol] 4.5 10*3/uL 4.4-11.0 [facility] Blood erythrocytes count (nu mber/volume)Ordered By: Jonathan Dillard on 06-13-2023 RBC (Bld) [#/Vol] 3.13 10*6/uL 4.2-5.4 [facility] Blood hemoglobin measurement (mass/volume)Ordered By: Jonathan Dillard on 06-13-2023 Hemoglobin (Bld) [Mass/Vol] 9.0 g/dL 12.0-15.0 [facility] Blood platelet mean volumeOr dered By: Jonathan Dillard on 06-13-2023 Platelet mean volume (Bld) [Entitic vol] 9.1 fL 6.2-12.0 [facility] Determination of erythrocyte mean corpuscular volume (MCV)Ordered By: Jonathan Dillard on 06-13-2023 MCV (RBC) [Entitic vol] 100.6 fL 81-99 [facility] Hematocrit Auto (Bld) [Volum e fraction]Ordered By: Jonathan Dillard on 06-13-2023 Hematocrit (Bld) [Volume fraction] 31.5 % 37-47 [facility] Laboratory - Chemistry and C hemistry - challengeOrdered By: Jonathan Dillard on 06-13-2023 ALP [Catalytic activity/Vol] 72 U/L 45-117 [facility] ALT [Catalytic activity/Vol] 14 U/L 13-56 [facility] CO2 [Moles/Vol] 42.0 mmol/L 21.0-32.0 [facility] Globulin (S) [Mass/Vol] 4.2 g/dL 2.2-4.2 [facility] Urea nitrogen/Creatinine [Mass ratio] 30.8 mg/mg 10-20 [facility] Laboratory - Hematology and Cell countsOrdered By: Jonathan Dillard on 06-13-2023 Erythrocyte distribution width (RBC) [Entitic vol] 51.3 fL 35.1-43.9 [facility] Erythrocyte distribution width (RBC) [Ratio] 13.9 % 11.6-14.6 [facility] MCH (RBC) [Entitic mass] 28.8 pg 27.0-32.0 [facility] MCHC Auto (RBC) [Mass/Vol]Or dered By: Jonathan Dillard on 06-13-2023 MCHC (RBC) [Mass/Vol] 28.6 g/dL 32-36 [facility] No Panel InformationOrdered By: Jonathan Dillard on 06-13-2023 Estimated GFR (MDRD) Amer 115 mL/min >60 [facility] Comment on above: GFR Calc Estimated GFR (MDRD) Non-Af Amer 95 mL/min >60 [facility] Comment on above: Non- GFR Calc Platelets bldOrdered By: Mervat Dillard on 06-13-2023 Platelets (Bld) [#/Vol] 112 10*3/uL 150-450 [facility] Serum or plasma albumin celina urement (mass/volume)Ordered By: Jonathan Dillard on 06-13-2023 Albumin [Mass/Vol] 2.6 g/dL 3.2-5.0 [facility] Serum or plasma albumin/glob ulin mass ratioOrdered By: Jonathan Dillard on 06-13-2023 Albumin/Globulin [Mass ratio] 0.6 {ratio} 0.9-2.4 [facility] Serum or plasma calcium celina urement (mass/volume)Ordered By: Jonathan Dillard on 06-13-2023 Calcium [Mass/Vol] 8.9 mg/dL 8.5-10.1 [facility] Serum or plasma creatinine m easurement (mass/volume)Ordered By: Jonathan Dillard on 06-13-2023 Creatinine [Mass/Vol] 0.65 mg/dL 0.55-1.02 [facility] Comment on above: The validity of the calculated GFR & GFRAA in patients over 70 years has not been determined. Clinical correlation is essential. Serum or plasma urea nitroge n measurement (mass/volume)Ordered By: Jonathan Dillard on 06-13-2023 Urea nitrogen [Mass/Vol] 20 mg/dL 7-18 [facility] Thin prep Papanicolaou smear with manual screeningOrdered By: Jonathan Dillard on 06-13-2023 Thin prep Papanicolaou smear with manual screening 11 U/L 15-37 [facility] Thin prep Papanicolaou smear with manual screening 0 5-15 [facility] Absolute lymphocyte countOrd ered By: Delfin Jeffries on 05-04-2023 Lymphocytes Auto (Unsp spec) [#/Vol] 0.78 10*3/uL 0.83-4.51 [facility] Basophil percentageOrdered B y: Delfin Jeffries on 05-04-2023 Basophils/100 WBC (Bld) 0.2 % 0-1 [facility] Bilirubin [Mass/Vol] 0.40 mg/dL 0.20-1.00 [facility] Comment on above: For patients on eltr ombopag therapy, use of Dimension [employer] TBIL is not recommended. Chloride [Moles/Vol] 104 mmol/L 98-107 [facility] Eosinophils/100 WBC (Bld) 1.3 % 0-5 [facility] Glucose [Mass/Vol] 175 mg/dL 74-106 [facility] Comment on above: Fasting Glucose resu lt greater than or equal to 126 mg/dL suggests DIABETES MELLITUS per A.D.A. criteria. LDH [Catalytic activity/Vol] 125 U/L 84-246 [facility] Neutrophils (Bld) [#/Vol] 4.2 10*3/uL 2.0-7.7 [facility] Neutrophils/100 WBC (Bld) 79.1 % 47-70 [facility] Potassium [Moles/Vol] 4.0 mmol/L 3.5-5.1 [facility] Protein [Mass/Vol] 7.5 g/dL 6.4-8.2 [facility] Sodium [Moles/Vol] 144 mmol/L 136-145 [facility] WBC (Bld) [#/Vol] 5.3 10*3/uL 4.4-11.0 [facility] Blood erythrocytes count (nu mber/volume)Ordered By: Delfin Jeffries on 05-04-2023 RBC (Bld) [#/Vol] 3.49 10*6/uL 4.2-5.4 [facility] Blood hemoglobin measurement (mass/volume)Ordered By: Delfin Jeffries on 05-04-2023 Hemoglobin (Bld) [Mass/Vol] 10.2 g/dL 12.0-15.0 [facility] Blood lymphocytes/100 leukoc ytesOrdered By: Delfin Jeffries on 05-04-2023 Lymphocytes/100 WBC (Bld) 14.7 % 19-41 [facility] Blood monocytes/100 leukocyt esOrdered By: Delfin Jeffries on 05-04-2023 Monocytes/100 WBC (Bld) 4.3 % 0-10 [facility] Blood platelet mean volumeOr dered By: Delfin Jeffries on 05-04-2023 Platelet mean volume (Bld) [Entitic vol] 8.6 fL 6.2-12.0 [facility] Determination of erythrocyte mean corpuscular volume (MCV)Ordered By: Delfin Jeffries on 05-04-2023 MCV (RBC) [Entitic vol] 99.7 fL 81-99 [facility] Hematocrit Auto (Bld) [Volum e fraction]Ordered By: Delfin Jeffries on 05-04-2023 Hematocrit (Bld) [Volume fraction] 34.8 % 37-47 [facility] Hemoglobin in reticulocytes (mass per reticulocyte)Ordered By: Delfin Jeffries on 05-04-2023 Hemoglobin (Reticulocytes) [Entitic mass] 31.0 pg 30-35 [facility] Iron measurement (mass/mass) Ordered By: Delfin Jeffries on 05-04-2023 Iron (Unsp spec) [Mass/Mass] 42 ug/dL 50-170 [facility] Laboratory - Chemistry and C hemistry - challengeOrdered By: Delfin Jeffries on 05-04-2023 ALP [Catalytic activity/Vol] 84 U/L 45-117 [facility] ALT [Catalytic activity/Vol] 21 U/L 13-56 [facility] CO2 [Moles/Vol] 39.0 mmol/L 21.0-32.0 [facility] Globulin (S) [Mass/Vol] 4.5 g/dL 2.2-4.2 [facility] Urea nitrogen/Creatinine [Mass ratio] 32.1 mg/mg 10-20 [facility] Laboratory - Hematology and Cell countsOrdered By: Delfin Jeffries on 05-04-2023 Erythrocyte distribution width (RBC) [Entitic vol] 51.9 fL 35.1-43.9 [facility] Erythrocyte distribution width (RBC) [Ratio] 14.6 % 11.6-14.6 [facility] Immature granulocytes/100 WBC (Bld) 0.400 % 0.0-0.9 [facility] Comment on above: IG% - Immature Granu locytes (promyelocytes, myelocytes and metamyelocytes) > 1% indicates that a LEFT SHIFT is Present. MCH (RBC) [Entitic mass] 29.2 pg 27.0-32.0 [facility] Nucleated RBC/100 WBC (Bld) [Ratio] 0 % 0-5 [facility] MCHC Auto (RBC) [Mass/Vol]Or dered By: Delfin Jeffries on 05-04-2023 MCHC (RBC) [Mass/Vol] 29.3 g/dL 32-36 [facility] No Panel InformationOrdered By: Delfin Jeffries on 05-04-2023 Estimated GFR (MDRD) Amer 103 mL/min >60 [facility] Comment on above: GFR Calc Estimated GFR (MDRD) Non-Af Amer 85 mL/min >60 [facility] Comment on above: Non- GFR Calc Immature Reticulocyte Fraction 26.90 % 3.00-15.90 [facility] Reticulocyte Count 2.39 % 0.5-1.5 [facility] Total Iron Binding Capacity 197 ug/dL 250-450 [facility] Platelets bldOrdered By: Luciano Jeffries on 05-04-2023 Platelets (Bld) [#/Vol] 107 10*3/uL 150-450 [facility] Serum or plasma albumin celina urement (mass/volume)Ordered By: Delfin Jeffries on 05-04-2023 Albumin [Mass/Vol] 3.0 g/dL 3.2-5.0 [facility] Serum or plasma albumin/glob ulin mass ratioOrdered By: Delfin Jeffries on 05-04-2023 Albumin/Globulin [Mass ratio] 0.7 {ratio} 0.9-2.4 [facility] Serum or plasma calcium celina urement (mass/volume)Ordered By: Delfin Jeffries on 05-04-2023 Calcium [Mass/Vol] 8.7 mg/dL 8.5-10.1 [facility] Serum or plasma creatinine m easurement (mass/volume)Ordered By: Delfin Benson on 05-04-2023 Creatinine [Mass/Vol] 0.72 mg/dL 0.55-1.02 [facility] Comment on above: The validity of the calculated GFR & GFRAA in patients over 70 years has not been determined. Clinical correlation is essential. Serum or plasma ferritin carter surement (mass/volume)Ordered By: Delfin Jeffries on 05-04-2023 Ferritin [Mass/Vol] 192 ng/mL 8-252 [facility] Serum or plasma iron saturat ion measurement (mass fraction)Ordered By: Delfin Kelley on 05-04-2023 Iron saturation [Mass fraction] 21.3 % 15.0-55.0 [facility] Serum or plasma urea nitroge n measurement (mass/volume)Ordered By: Delfin [facility] on 05-04-2023 Urea nitrogen [Mass/Vol] 23 mg/dL 7-18 [facility] Thin prep Papanicolaou smear with manual screeningOrdered By: Delfin Jeffries on 05-04-2023 Thin prep Papanicolaou smear with manual screening 16 U/L 15-37 [facility] Thin prep Papanicolaou smear with manual screening 1 5-15 [facility] Absolute lymphocyte countOrd ered By: Dr. Vela on 04-19-2023 Lymphocytes Auto (Unsp spec) [#/Vol] 0.71 10*3/uL 0.83-4.51 [facility] Basophil percentageOrdered B y: Dr. Vela on 04-19-2023 Basophil percentage 0 SEEN /hpf 0-5 [facility] Basophils/100 WBC (Bld) 0.2 % 0-1 [facility] Bilirubin [Mass/Vol] 0.40 mg/dL 0.20-1.00 [facility] Comment on above: For patients on eltr ombopag therapy, use of Dimension [employer] TBIL is not recommended. Chloride [Moles/Vol] 102 mmol/L 98-107 [facility] Eosinophils/100 WBC (Bld) 0.9 % 0-5 [facility] Glucose [Mass/Vol] 108 mg/dL 74-106 [facility] Comment on above: Fasting Glucose resu lt from 100 to 125 mg/dL suggests IMPAIRED HOMEOSTASIS per A.D.A. criteria. Neutrophils (Bld) [#/Vol] 5.2 10*3/uL 2.0-7.7 [facility] Neutrophils/100 WBC (Bld) 81.7 % 47-70 [facility] Potassium [Moles/Vol] 3.9 mmol/L 3.5-5.1 [facility] Protein [Mass/Vol] 7.7 g/dL 6.4-8.2 [facility] Sodium [Moles/Vol] 146 mmol/L 136-145 [facility] WBC (Bld) [#/Vol] 6.3 10*3/uL 4.4-11.0 [facility] Bilirubin Test strip Ql (U)O rdered By: Dr. Vela on 04-19-2023 Bilirubin Ql (U) Negative Negative [facility] Blood erythrocytes count (nu mber/volume)Ordered By: Dr. Vela on 04-19-2023 RBC (Bld) [#/Vol] 3.35 10*6/uL 4.2-5.4 [facility] Blood hemoglobin measurement (mass/volume)Ordered By: Dr. Vela on 04-19-2023 Hemoglobin (Bld) [Mass/Vol] 9.6 g/dL 12.0-15.0 [facility] Blood lymphocytes/100 leukoc ytesOrdered By: Dr. Vela on 04-19-2023 Lymphocytes/100 WBC (Bld) 11.2 % 19-41 [facility] Blood monocytes/100 leukocyt esOrdered By: Dr. Vela on 04-19-2023 Monocytes/100 WBC (Bld) 5.5 % 0-10 [facility] Blood platelet mean volumeOr dered By: Dr. Vela on 04-19-2023 Platelet mean volume (Bld) [Entitic vol] 9.5 fL 6.2-12.0 [facility] Determination of erythrocyte mean corpuscular volume (MCV)Ordered By: Dr. Vela on 04-19-2023 MCV (RBC) [Entitic vol] 98.5 fL 81-99 [facility] Hematocrit Auto (Bld) [Volum e fraction]Ordered By: Dr. Vela on 04-19-2023 Hematocrit (Bld) [Volume fraction] 33.0 % 37-47 [facility] Ketones Test strip Ql (U)Ord ered By: Dr. Vela on 04-19-2023 Ketones Ql (U) Negative Negative [facility] Laboratory - Chemistry and C hemistry - challengeOrdered By: Dr. Vela on 04-19-2023 ALP [Catalytic activity/Vol] 96 U/L 45-117 [facility] ALT [Catalytic activity/Vol] 21 U/L 13-56 [facility] CO2 [Moles/Vol] 41.0 mmol/L 21.0-32.0 [facility] Globulin (S) [Mass/Vol] 4.6 g/dL 2.2-4.2 [facility] Urea nitrogen/Creatinine [Mass ratio] 36.2 mg/mg 10-20 [facility] Laboratory - Hematology and Cell countsOrdered By: Dr. Vela on 04-19-2023 Erythrocyte distribution width (RBC) [Entitic vol] 50.7 fL 35.1-43.9 [facility] Erythrocyte distribution width (RBC) [Ratio] 14.2 % 11.6-14.6 [facility] Immature granulocytes/100 WBC (Bld) 0.500 % 0.0-0.9 [facility] Comment on above: IG% - Immature Granu locytes (promyelocytes, myelocytes and metamyelocytes) > 1% indicates that a LEFT SHIFT is Present. MCH (RBC) [Entitic mass] 28.7 pg 27.0-32.0 [facility] Nucleated RBC/100 WBC (Bld) [Ratio] 0 % 0-5 [facility] MCHC Auto (RBC) [Mass/Vol]Or dered By: Dr. Vela on 04-19-2023 MCHC (RBC) [Mass/Vol] 29.1 g/dL 32-36 [facility] Mucus LM Ql (Urine sed)Order ed By: Dr. Vela on 04-19-2023 Mucus Ql (Urine sed) 0 SEEN /hpf [facility] Nitrite Test strip Ql (U)Ord ered By: Dr. Vela on 04-19-2023 Nitrite Ql (U) Negative Negative [facility] No Panel InformationOrdered By: Dr. Vela on 04-19-2023 Estimated Creatinine Clearance Calc 45.09 ml/min [facility] Estimated GFR (MDRD) Amer 118 mL/min >60 [facility] Comment on above: GFR Calc Estimated GFR (MDRD) Non-Af Amer 97 mL/min >60 [facility] Comment on above: Non- GFR Calc Platelets bldOrdered By: Dr. Vela on 04-19-2023 Platelets (Bld) [#/Vol] 103 10*3/uL 150-450 [facility] Protein Test strip Ql (U)Ord ered By: Dr. Vela on 04-19-2023 Protein Ql (U) Negative Negative [facility] Serum or plasma albumin celina urement (mass/volume)Ordered By: Dr. Vela on 04-19-2023 Albumin [Mass/Vol] 3.1 g/dL 3.2-5.0 [facility] Serum or plasma albumin/glob ulin mass ratioOrdered By: Dr. Vela on 04-19-2023 Albumin/Globulin [Mass ratio] 0.7 {ratio} 0.9-2.4 [facility] Serum or plasma calcium celina urement (mass/volume)Ordered By: Dr. Vela on 04-19-2023 Calcium [Mass/Vol] 9.3 mg/dL 8.5-10.1 [facility] Serum or plasma creatinine m easurement (mass/volume)Ordered By: Dr. Vela on 04-19-2023 Creatinine [Mass/Vol] 0.64 mg/dL 0.55-1.02 [facility] Comment on above: The validity of the calculated GFR & GFRAA in patients over 70 years has not been determined. Clinical correlation is essential. Serum or plasma urea nitroge n measurement (mass/volume)Ordered By: Dr. Vela on 04-19-2023 Urea nitrogen [Mass/Vol] 23 mg/dL 7-18 [facility] Squamous epithelial cells de tection in urine sediment by light microscopyOrdered By: Dr. Vela on 04-19-2023 Epithelial cells.squamous LM Ql (Urine sed) 0 SEEN /hpf 5-10 [facility] Thin prep Papanicolaou smear with manual screeningOrdered By: Dr. Vela on 04-19-2023 Thin prep Papanicolaou smear with manual screening 16 U/L 15-37 [facility] Thin prep Papanicolaou smear with manual screening 3 5-15 [facility] Urine blood detectionOrdered By: Dr. Vela on 04-19-2023 RBC Ql (U) Negative Negative [facility] RBC Ql (U) 0 SEEN /hpf 0-5 [facility] Urine clarityOrdered By: Dr. Vela on 04-19-2023 Clarity (U) Clear Clear [facility] Urine color determinationOrd ered By: Dr. Vela on 04-19-2023 Color (U) Yellow Yellow [facility] Urine glucose detectionOrder ed By: Dr. Vela on 04-19-2023 Glucose Ql (U) Normal mg/dl Normal [facility] Urine leukocyte esterase det ection by dipstickOrdered By: Dr. Vela on 04-19-2023 Leukocyte esterase Test strip Ql (U) Negative Negative [facility] Urine pHOrdered By: Dr. Isaias barkley on 04-19-2023 pH (U) 6.5 [pH] 5.0 - 8.0 [facility] Urine sediment bacteria coun t by microscopy (number/high power field)Ordered By: Dr. Vela on 04-19-2023 Bacteria LM.HPF (Urine sed) [#/Area] 0 /[HPF] None Seen [facility] Urine specific gravity measu rementOrdered By: Dr. Vela on 04-19-2023 Specific gravity (U) [Rel density] 1.010 1.002-1.030 [facility] Urobilinogen Auto test strip Ql (U)Ordered By: Dr. Vela on 04-19-2023 Urobilinogen Ql (U) Normal mg/dl Normal [facility] Culture, urineOrdered By: Sutherland Deperrletty on 04-15-2023 Bacteria identified Cx Nom (U) Presumptive E. coli [facility] Bacteria identified Cx Nom (U) Klebsiella pneumoniae sp pneum [facility] Basophil percentageOrdered B y: Jonathan Dillard on 04-12-2023 Basophil percentage 0-5 SEEN /hpf 0-5 [facility] Bilirubin [Mass/Vol] 0.50 mg/dL 0.20-1.00 [facility] Comment on above: For patients on eltr ombopag therapy, use of Dimension Cookson TBIL is not recommended. Chloride [Moles/Vol] 102 mmol/L 98-107 [facility] Glucose [Mass/Vol] 122 mg/dL 74-106 [facility] Comment on above: Fasting Glucose resu lt from 100 to 125 mg/dL suggests IMPAIRED HOMEOSTASIS per A.D.A. criteria. Potassium [Moles/Vol] 3.7 mmol/L 3.5-5.1 [facility] Protein [Mass/Vol] 6.9 g/dL 6.4-8.2 [facility] Sodium [Moles/Vol] 145 mmol/L 136-145 [facility] WBC (Bld) [#/Vol] 5.1 10*3/uL 4.4-11.0 [facility] Bilirubin Test strip Ql (U)O rdered By: Jonathan Dillard on 04-12-2023 Bilirubin Ql (U) Negative Negative [facility] Blood erythrocytes count (nu mber/volume)Ordered By: Jonathan Dillard on 04-12-2023 RBC (Bld) [#/Vol] 3.16 10*6/uL 4.2-5.4 [facility] Blood hemoglobin measurement (mass/volume)Ordered By: Jonathan Dillard on 04-12-2023 Hemoglobin (Bld) [Mass/Vol] 8.9 g/dL 12.0-15.0 [facility] Blood platelet mean volumeOr dered By: Jonathan Dillard on 04-12-2023 Platelet mean volume (Bld) [Entitic vol] 9.1 fL 6.2-12.0 [facility] Culture, urineOrdered By: Higuera on 04-12-2023 Bacteria identified Cx Nom (U) Presumptive E. coli [facility] Bacteria identified Cx Nom (U) Klebsiella pneumoniae sp pneum [facility] Determination of erythrocyte mean corpuscular volume (MCV)Ordered By: Jonathan Dillard on 04-12-2023 MCV (RBC) [Entitic vol] 99.7 fL 81-99 [facility] Hematocrit Auto (Bld) [Volum e fraction]Ordered By: Jonathan Dillard on 04-12-2023 Hematocrit (Bld) [Volume fraction] 31.5 % 37-47 [facility] Ketones Test strip Ql (U)Ord ered By: Jonathan Dillard on 04-12-2023 Ketones Ql (U) Negative Negative [facility] Laboratory - Chemistry and C hemistry - challengeOrdered By: Jonathan Dillard on 04-12-2023 ALP [Catalytic activity/Vol] 83 U/L 45-117 [facility] ALT [Catalytic activity/Vol] 20 U/L 13-56 [facility] CO2 [Moles/Vol] 42.0 mmol/L 21.0-32.0 [facility] Globulin (S) [Mass/Vol] 4.1 g/dL 2.2-4.2 [facility] Urea nitrogen/Creatinine [Mass ratio] 34.6 mg/mg 10-20 [facility] Laboratory - Hematology and Cell countsOrdered By: Jonathan Dillard on 04-12-2023 Erythrocyte distribution width (RBC) [Entitic vol] 53.0 fL 35.1-43.9 [facility] Erythrocyte distribution width (RBC) [Ratio] 14.5 % 11.6-14.6 [facility] MCH (RBC) [Entitic mass] 28.2 pg 27.0-32.0 [facility] MCHC Auto (RBC) [Mass/Vol]Or dered By: Jonathan Dillard on 04-12-2023 MCHC (RBC) [Mass/Vol] 28.3 g/dL 32-36 [facility] Mucus LM Ql (Urine sed)Order ed By: Jonathan Dillard on 04-12-2023 Mucus Ql (Urine sed) 0 SEEN /hpf [facility] Nitrite Test strip Ql (U)Ord ered By: Jonathan Dillard on 04-12-2023 Nitrite Ql (U) Negative Negative [facility] No Panel InformationOrdered By: Jonathan Dillard on 04-12-2023 Estimated GFR (MDRD) Amer 112 mL/min >60 [facility] Comment on above: GFR Calc Estimated GFR (MDRD) Non-Af Amer 93 mL/min >60 [facility] Comment on above: Non- GFR Calc Platelets bldOrdered By: Mervat Dillard on 04-12-2023 Platelets (Bld) [#/Vol] 115 10*3/uL 150-450 [facility] Protein Test strip Ql (U)Ord ered By: Jonathan Dillard on 04-12-2023 Protein Ql (U) Negative Negative [facility] Serum or plasma albumin celina urement (mass/volume)Ordered By: Jonathan Dillard on 04-12-2023 Albumin [Mass/Vol] 2.8 g/dL 3.2-5.0 [facility] Serum or plasma albumin/glob ulin mass ratioOrdered By: Jonathan Dillard on 04-12-2023 Albumin/Globulin [Mass ratio] 0.7 {ratio} 0.9-2.4 [facility] Serum or plasma calcium celina urement (mass/volume)Ordered By: Jonathan Dillard on 04-12-2023 Calcium [Mass/Vol] 9.0 mg/dL 8.5-10.1 [facility] Serum or plasma creatinine m easurement (mass/volume)Ordered By: Jonathan Dillard on 04-12-2023 Creatinine [Mass/Vol] 0.66 mg/dL 0.55-1.02 [facility] Comment on above: The validity of the calculated GFR & GFRAA in patients over 70 years has not been determined. Clinical correlation is essential. Serum or plasma urea nitroge n measurement (mass/volume)Ordered By: Jonathan Dillard on 04-12-2023 Urea nitrogen [Mass/Vol] 23 mg/dL 7-18 [facility] Squamous epithelial cells de tection in urine sediment by light microscopyOrdered By: Jonathan Dillard on 04-12-2023 Epithelial cells.squamous LM Ql (Urine sed) 0-5 SEEN /hpf 5-10 [facility] Thin prep Papanicolaou smear with manual screeningOrdered By: Jonathan Dillard on 04-12-2023 Thin prep Papanicolaou smear with manual screening 14 U/L 15-37 [facility] Thin prep Papanicolaou smear with manual screening 1 5-15 [facility] Urine blood detectionOrdered By: Jonathan Dillard on 04-12-2023 RBC Ql (U) Negative Negative [facility] RBC Ql (U) 0-5 SEEN /hpf 0-5 [facility] Urine clarityOrdered By: Mervat Dillard on 04-12-2023 Clarity (U) Clear Clear [facility] Urine color determinationOrd ered By: Jonathan Dillard on 04-12-2023 Color (U) Yellow Yellow [facility] Urine glucose detectionOrder ed By: Jonathan Dillard on 04-12-2023 Glucose Ql (U) Normal mg/dl Normal [facility] Urine leukocyte esterase det ection by dipstickOrdered By: Jonathan Dillard on 04-12-2023 Leukocyte esterase Test strip Ql (U) 25 /ul Negative [facility] Urine pHOrdered By: Jonathan ramirez on 04-12-2023 pH (U) 5.0 [pH] 5.0 - 8.0 [facility] Urine sediment bacteria coun t by microscopy (number/high power field)Ordered By: Jonathan Dillard on 04-12-2023 Bacteria LM.HPF (Urine sed) [#/Area] 0 /[HPF] None Seen [facility] Urine specific gravity measu rementOrdered By: Jonathan Dillard on 04-12-2023 Specific gravity (U) [Rel density] 1.020 1.002-1.030 [facility] Urobilinogen Auto test strip Ql (U)Ordered By: Jonathan Dillard on 04-12-2023 Urobilinogen Ql (U) Normal mg/dl Normal [facility] Basophil percentageOrdered B y: Jonathan Dillard on 03-28-2023 WBC (Bld) [#/Vol] 4.3 10*3/uL 4.4-11.0 [facility] Blood erythrocytes count (nu mber/volume)Ordered By: Jonathan Dillard on 03-28-2023 RBC (Bld) [#/Vol] 3.38 10*6/uL 4.2-5.4 [facility] Blood hemoglobin measurement (mass/volume)Ordered By: Jonathan Dillard on 03-28-2023 Hemoglobin (Bld) [Mass/Vol] 9.5 g/dL 12.0-15.0 [facility] Blood platelet mean volumeOr dered By: Jonathan Dillard on 03-28-2023 Platelet mean volume (Bld) [Entitic vol] 9.3 fL 6.2-12.0 [facility] Determination of erythrocyte mean corpuscular volume (MCV)Ordered By: Jonathan Dillard on 03-28-2023 MCV (RBC) [Entitic vol] 100.6 fL 81-99 [facility] Hematocrit Auto (Bld) [Volum e fraction]Ordered By: Jonathan Dillard on 03-28-2023 Hematocrit (Bld) [Volume fraction] 34.0 % 37-47 [facility] Laboratory - Hematology and Cell countsOrdered By: Jonathan Dillard on 03-28-2023 Erythrocyte distribution width (RBC) [Entitic vol] 54.0 fL 35.1-43.9 [facility] Erythrocyte distribution width (RBC) [Ratio] 14.7 % 11.6-14.6 [facility] MCH (RBC) [Entitic mass] 28.1 pg 27.0-32.0 [facility] MCHC Auto (RBC) [Mass/Vol]Or dered By: Jonathan Dillard on 03-28-2023 MCHC (RBC) [Mass/Vol] 27.9 g/dL 32-36 [facility] Platelets bldOrdered By: Mervat Dillard on 03-28-2023 Platelets (Bld) [#/Vol] 116 10*3/uL 150-450 [facility] Absolute lymphocyte countOrd ered By: Dr. Jeffries on 03-09-2023 Lymphocytes Auto (Unsp spec) [#/Vol] 0.69 10*3/uL 0.83-4.51 [facility] Basophil percentageOrdered B y: Dr. Jeffries on 03-09-2023 Basophil percentage 3.0 mg/dL 2.5-4.9 [facility] Basophils/100 WBC (Bld) 0.2 % 0-1 [facility] Eosinophils/100 WBC (Bld) 0.9 % 0-5 [facility] LDH [Catalytic activity/Vol] 131 U/L 84-246 [facility] Neutrophils (Bld) [#/Vol] 4.4 10*3/uL 2.0-7.7 [facility] Neutrophils/100 WBC (Bld) 80.2 % 47-70 [facility] WBC (Bld) [#/Vol] 5.5 10*3/uL 4.4-11.0 [facility] Blood erythrocytes count (nu mber/volume)Ordered By: Dr. Jeffries on 03-09-2023 RBC (Bld) [#/Vol] 3.49 10*6/uL 4.2-5.4 [facility] Blood hemoglobin measurement (mass/volume)Ordered By: Dr. Jeffries on 03-09-2023 Hemoglobin (Bld) [Mass/Vol] 9.6 g/dL 12.0-15.0 [facility] Blood lymphocytes/100 leukoc ytesOrdered By: Dr. Jeffries on 03-09-2023 Lymphocytes/100 WBC (Bld) 12.6 % 19-41 [facility] Blood monocytes/100 leukocyt esOrdered By: Dr. Jeffries on 03-09-2023 Monocytes/100 WBC (Bld) 5.7 % 0-10 [facility] Blood platelet mean volumeOr dered By: Dr. Jeffries on 03-09-2023 Platelet mean volume (Bld) [Entitic vol] 9.6 fL 6.2-12.0 [facility] Determination of erythrocyte mean corpuscular volume (MCV)Ordered By: Dr. Jeffries on 03-09-2023 MCV (RBC) [Entitic vol] 97.7 fL 81-99 [facility] Hematocrit Auto (Bld) [Volum e fraction]Ordered By: Dr. Jeffries on 03-09-2023 Hematocrit (Bld) [Volume fraction] 34.1 % 37-47 [facility] Iron measurement (mass/mass) Ordered By: Dr. Jeffries on 03-09-2023 Iron (Unsp spec) [Mass/Mass] 30 ug/dL 50-170 [facility] Laboratory - Chemistry and C hemistry - challengeOrdered By: Dr. Jeffries on 03-09-2023 Cobalamin (Vitamin B12) [Mass/Vol] 669 pg/mL 211-911 [facility] Magnesium [Mass/Vol] 2.0 mg/dL 1.6-2.6 [facility] Laboratory - Hematology and Cell countsOrdered By: Dr. Jeffries on 03-09-2023 Erythrocyte distribution width (RBC) [Entitic vol] 52.1 fL 35.1-43.9 [facility] Erythrocyte distribution width (RBC) [Ratio] 14.6 % 11.6-14.6 [facility] Immature granulocytes/100 WBC (Bld) 0.400 % 0.0-0.9 [facility] Comment on above: IG% - Immature Granu locytes (promyelocytes, myelocytes and metamyelocytes) > 1% indicates that a LEFT SHIFT is Present. MCH (RBC) [Entitic mass] 27.5 pg 27.0-32.0 [facility] Nucleated RBC/100 WBC (Bld) [Ratio] 0 % 0-5 [facility] MCHC Auto (RBC) [Mass/Vol]Or dered By: Dr. Jeffries on 03-09-2023 MCHC (RBC) [Mass/Vol] 28.2 g/dL 32-36 [facility] No Panel InformationOrdered By: Dr. Jeffries on 03-09-2023 Total Iron Binding Capacity 196 ug/dL 250-450 [facility] Platelets bldOrdered By: Dr. Jeffries on 03-09-2023 Platelets (Bld) [#/Vol] 109 10*3/uL 150-450 [facility] Serum or plasma ferritin carter surement (mass/volume)Ordered By: Dr. Jeffries on 03-09-2023 Ferritin [Mass/Vol] 67 ng/mL 8-252 [facility] Serum or plasma iron saturat ion measurement (mass fraction)Ordered By: Dr. Jeffries on 03-09-2023 Iron saturation [Mass fraction] 15.3 % 15.0-55.0 [facility] No Panel InformationOrdered By: Jonathan Dillard on 03-08-2023 CA 125 Antigen 28.1 U/mL 0.0-38.1 [facility] Comment on above: [facility] El ectrochemiluminescence Immunoassay(ECLIA)Values obtained with different assay methods or kits cannotbe used interchangeably. Results cannot be interpreted asabsolute evidence of the presence or absence of malignantdisease.Performed at: [facility] [id number] Director: Mark Woo PhD, Phone: [phone] Basophil percentageOrdered B y: Jonathan Dillard on 03-04-2023 Chloride [Moles/Vol] 102 mmol/L 98-107 [facility] Glucose [Mass/Vol] 154 mg/dL 74-106 [facility] Comment on above: Fasting Glucose resu lt greater than or equal to 126 mg/dL suggests DIABETES MELLITUS per A.D.A. criteria. Potassium [Moles/Vol] 3.5 mmol/L 3.5-5.1 [facility] Sodium [Moles/Vol] 144 mmol/L 136-145 [facility] Laboratory - Chemistry and C hemistry - challengeOrdered By: Jonathan Dillard on 03-04-2023 CO2 [Moles/Vol] 44.0 mmol/L 21.0-32.0 [facility] Urea nitrogen/Creatinine [Mass ratio] 29.9 mg/mg 10-20 [facility] No Panel InformationOrdered By: Jonathan Dillard on 03-04-2023 Estimated GFR (MDRD) Amer 111 mL/min >60 [facility] Comment on above: GFR Calc Estimated GFR (MDRD) Non-Af Amer 92 mL/min >60 [facility] Comment on above: Non- GFR Calc Serum or plasma calcium celina urement (mass/volume)Ordered By: Jonathan Dillard on 03-04-2023 Calcium [Mass/Vol] 9.0 mg/dL 8.5-10.1 [facility] Serum or plasma creatinine m easurement (mass/volume)Ordered By: Jonathan Dillard on 03-04-2023 Creatinine [Mass/Vol] 0.67 mg/dL 0.55-1.02 [facility] Comment on above: The validity of the calculated GFR & GFRAA in patients over 70 years has not been determined. Clinical correlation is essential. Serum or plasma urea nitroge n measurement (mass/volume)Ordered By: Jonathan Dillard on 03-04-2023 Urea nitrogen [Mass/Vol] 20 mg/dL 7-18 [facility] Thin prep Papanicolaou smear with manual screeningOrdered By: Jonathan Dillard on 03-04-2023 Thin prep Papanicolaou smear with manual screening -2 5-15 [facility] Basophil percentageOrdered B y: Jonathan Dillard on 02-28-2023 Chloride [Moles/Vol] 104 mmol/L 98-107 [facility] Glucose [Mass/Vol] 150 mg/dL 74-106 [facility] Comment on above: Fasting Glucose resu lt greater than or equal to 126 mg/dL suggests DIABETES MELLITUS per A.D.A. criteria. Potassium [Moles/Vol] 3.4 mmol/L 3.5-5.1 [facility] Sodium [Moles/Vol] 144 mmol/L 136-145 [facility] WBC (Bld) [#/Vol] 4.5 10*3/uL 4.4-11.0 [facility] Blood erythrocytes count (nu mber/volume)Ordered By: Jonathan Dillard on 02-28-2023 RBC (Bld) [#/Vol] 3.23 10*6/uL 4.2-5.4 [facility] Blood hemoglobin measurement (mass/volume)Ordered By: Jonathan Dillard on 02-28-2023 Hemoglobin (Bld) [Mass/Vol] 8.9 g/dL 12.0-15.0 [facility] Blood platelet mean volumeOr dered By: Jonathan Dillard on 02-28-2023 Platelet mean volume (Bld) [Entitic vol] 9.3 fL 6.2-12.0 [facility] Determination of erythrocyte mean corpuscular volume (MCV)Ordered By: Jonathan Dillard on 02-28-2023 MCV (RBC) [Entitic vol] 97.5 fL 81-99 [facility] Hematocrit Auto (Bld) [Volum e fraction]Ordered By: Jonathan Dillard on 02-28-2023 Hematocrit (Bld) [Volume fraction] 31.5 % 37-47 [facility] Laboratory - Chemistry and C hemistry - challengeOrdered By: Jonathan Dillard on 02-28-2023 CO2 [Moles/Vol] 41.0 mmol/L 21.0-32.0 [facility] Urea nitrogen/Creatinine [Mass ratio] 26.5 mg/mg 10-20 [facility] Laboratory - Hematology and Cell countsOrdered By: Jonathan Dillard on 02-28-2023 Erythrocyte distribution width (RBC) [Entitic vol] 51.0 fL 35.1-43.9 [facility] Erythrocyte distribution width (RBC) [Ratio] 14.2 % 11.6-14.6 [facility] MCH (RBC) [Entitic mass] 27.6 pg 27.0-32.0 [facility] MCHC Auto (RBC) [Mass/Vol]Or dered By: Jonathan Dillard on 02-28-2023 MCHC (RBC) [Mass/Vol] 28.3 g/dL 32-36 [facility] No Panel InformationOrdered By: Jonathan Dillard on 02-28-2023 Estimated GFR (MDRD) Amer 125 mL/min >60 [facility] Comment on above: GFR Calc Estimated GFR (MDRD) Non-Af Amer 104 mL/min >60 [facility] Comment on above: Non- GFR Calc Platelets bldOrdered By: Mervat Dillard on 02-28-2023 Platelets (Bld) [#/Vol] 130 10*3/uL 150-450 [facility] Serum or plasma calcium celina urement (mass/volume)Ordered By: Jonathan Dillard on 02-28-2023 Calcium [Mass/Vol] 8.9 mg/dL 8.5-10.1 [facility] Serum or plasma creatinine m easurement (mass/volume)Ordered By: Jonathan Dillard on 02-28-2023 Creatinine [Mass/Vol] 0.60 mg/dL 0.55-1.02 [facility] Comment on above: The validity of the calculated GFR & GFRAA in patients over 70 years has not been determined. Clinical correlation is essential. Serum or plasma urea nitroge n measurement (mass/volume)Ordered By: Jonathan Dillard on 02-28-2023 Urea nitrogen [Mass/Vol] 16 mg/dL 7-18 [facility] Thin prep Papanicolaou smear with manual screeningOrdered By: Jonathan Dillard on 02-28-2023 Thin prep Papanicolaou smear with manual screening -1 5-15 [facility] Absolute lymphocyte countOrd ered By: Dr. Jaime on 02-25-2023 Lymphocytes Auto (Unsp spec) [#/Vol] 0.74 10*3/uL 0.83-4.51 [facility] Basophil percentageOrdered B y: Dr. Jaime on 02-25-2023 Basophils/100 WBC (Bld) 0.2 % 0-1 [facility] Eosinophils/100 WBC (Bld) 1.2 % 0-5 [facility] Neutrophils (Bld) [#/Vol] 4.0 10*3/uL 2.0-7.7 [facility] Neutrophils/100 WBC (Bld) 79.1 % 47-70 [facility] WBC (Bld) [#/Vol] 5.1 10*3/uL 4.4-11.0 [facility] Bilirubin [Mass/Vol] 0.40 mg/dL 0.20-1.00 [facility] Comment on above: For patients on eltr ombopag therapy, use of Dimension [employer]son TBIL is not recommended. Chloride [Moles/Vol] 106 mmol/L 98-107 [facility] Glucose [Mass/Vol] 106 mg/dL 74-106 [facility] Comment on above: Fasting Glucose resu lt from 100 to 125 mg/dL suggests IMPAIRED HOMEOSTASIS per A.D.A. criteria. Potassium [Moles/Vol] 4.3 mmol/L 3.5-5.1 [facility] Protein [Mass/Vol] 7.1 g/dL 6.4-8.2 [facility] Sodium [Moles/Vol] 142 mmol/L 136-145 [facility] Blood erythrocytes count (nu mber/volume)Ordered By: Dr. Jaime on 02-25-2023 RBC (Bld) [#/Vol] 3.46 10*6/uL 4.2-5.4 [facility] Blood hemoglobin measurement (mass/volume)Ordered By: Dr. Jaime on 02-25-2023 Hemoglobin (Bld) [Mass/Vol] 9.5 g/dL 12.0-15.0 [facility] Blood lymphocytes/100 leukoc ytesOrdered By: Dr. Jaime on 02-25-2023 Lymphocytes/100 WBC (Bld) 14.7 % 19-41 [facility] Blood monocytes/100 leukocyt esOrdered By: Dr. Jaime on 02-25-2023 Monocytes/100 WBC (Bld) 4.4 % 0-10 [facility] Blood platelet mean volumeOr dered By: Dr. Jaime on 02-25-2023 Platelet mean volume (Bld) [Entitic vol] 8.7 fL 6.2-12.0 [facility] COVID-19 virus antigen assay Ordered By: Dr. Jaime on 02-25-2023 SARS-CoV-2 (COVID-19) Ag IA.rapid Ql (Resp) [facility] Determination of erythrocyte mean corpuscular volume (MCV)Ordered By: Dr. Jaime on 02-25-2023 MCV (RBC) [Entitic vol] 98.3 fL 81-99 [facility] Hematocrit Auto (Bld) [Volum e fraction]Ordered By: Dr. Jaime on 02-25-2023 Hematocrit (Bld) [Volume fraction] 34.0 % 37-47 [facility] Laboratory - Chemistry and C hemistry - challengeOrdered By: Dr. Jaime on 02-25-2023 ALP [Catalytic activity/Vol] 69 U/L 45-117 [facility] ALT [Catalytic activity/Vol] 23 U/L 13-56 [facility] CO2 [Moles/Vol] 34.0 mmol/L 21.0-32.0 [facility] Globulin (S) [Mass/Vol] 4.5 g/dL 2.2-4.2 [facility] Urea nitrogen/Creatinine [Mass ratio] 27.0 mg/mg 10-20 [facility] Laboratory - Hematology and Cell countsOrdered By: Dr. Jaime on 02-25-2023 Erythrocyte distribution width (RBC) [Entitic vol] 52.0 fL 35.1-43.9 [facility] Erythrocyte distribution width (RBC) [Ratio] 14.5 % 11.6-14.6 [facility] Immature granulocytes/100 WBC (Bld) 0.400 % 0.0-0.9 [facility] Comment on above: IG% - Immature Granu locytes (promyelocytes, myelocytes and metamyelocytes) > 1% indicates that a LEFT SHIFT is Present. MCH (RBC) [Entitic mass] 27.5 pg 27.0-32.0 [facility] Nucleated RBC/100 WBC (Bld) [Ratio] 0 % 0-5 [facility] Laboratory - Microbiology an d Antimicrobial susceptibilityOrdered By: Dr. Monique on 02-25-2023 Bacteria identified Cx Nom (Bld) No growth in 5 days. [facility] MCHC Auto (RBC) [Mass/Vol]Or dered By: Dr. Jaime on 02-25-2023 MCHC (RBC) [Mass/Vol] 27.9 g/dL 32-36 [facility] No Panel InformationOrdered By: Dr. Jaime on 02-25-2023 Estimated Creatinine Clearance Calc 53.04 ml/min [facility] Estimated GFR (MDRD) Amer 84 mL/min >60 [facility] Comment on above: GFR Calc Estimated GFR (MDRD) Non-Af Amer 69 mL/min >60 [facility] Comment on above: Non- GFR Calc Platelets bldOrdered By: Dr. Jaime on 02-25-2023 Platelets (Bld) [#/Vol] 146 10*3/uL 150-450 [facility] Serum or plasma albumin celina urement (mass/volume)Ordered By: Dr. Jaime on 02-25-2023 Albumin [Mass/Vol] 2.6 g/dL 3.2-5.0 [facility] Serum or plasma albumin/glob ulin mass ratioOrdered By: Dr. Jaime on 02-25-2023 Albumin/Globulin [Mass ratio] 0.6 {ratio} 0.9-2.4 [facility] Serum or plasma calcium celina urement (mass/volume)Ordered By: Dr. Jaime on 02-25-2023 Calcium [Mass/Vol] 8.7 mg/dL 8.5-10.1 [facility] Serum or plasma creatinine m easurement (mass/volume)Ordered By: Dr. Jaime on 02-25-2023 Creatinine [Mass/Vol] 0.85 mg/dL 0.55-1.02 [facility] Comment on above: The validity of the calculated GFR & GFRAA in patients over 70 years has not been determined. Clinical correlation is essential. Serum or plasma urea nitroge n measurement (mass/volume)Ordered By: Dr. Jaime on 02-25-2023 Urea nitrogen [Mass/Vol] 23 mg/dL 7-18 [facility] Thin prep Papanicolaou smear with manual screeningOrdered By: Dr. Jaime on 02-25-2023 Thin prep Papanicolaou smear with manual screening 20 U/L 15-37 [facility] Thin prep Papanicolaou smear with manual screening 2 5-15 [facility] Glucose Glucometer (BldC) [M ass/Vol]Ordered By: Dr. Jaime on 02-23-2023 Glucose [Mass/Vol] 136 mg/dL 74-106 [facility] Comment on above: MANAGEMENT OF PATIEN T CARE PER NURSING PROTOCOL Blood manual differential co mment interpretation (narrative result)Ordered By: Dr. Jaime on 02-22-2023 Manual differential comment Ajit (Bld) [Interp] SCANNED [facility] Comment on above: LYMPHOPENIA Clostridium difficile detect ion by polymerase chain reactionOrdered By: Dr. Banks on 02-22-2023 C. difficile DNA ISA+probe Ql (Unsp spec) [facility] Base excessOrdered By: Dr. Joshua greenfield on 02-21-2023 Base excess Calc (BldV) [Moles/Vol] 12 mmol/L -2-2 [facility] Basophil percentageOrdered B y: Dr. Jaime on 02-21-2023 Basophil percentage 36.1 mmol/L 22-26 [facility] Basophils/100 WBC (Bld) 98 % 95-99 [facility] Blood platelet adequacy dete ction by light microscopyOrdered By: Dr. Padron on 02-21-2023 Platelets LM Ql (Bld) SLT DEC ADEQ [facility] CO2 (BldA) [Partial pressure ]Ordered By: Dr. Jaime on 02-21-2023 CO2 (Bld) [Partial pressure] 52.0 mm[Hg] 35-45 [facility] Culture, urineOrdered By: Dr Che Monique on 02-21-2023 Bacteria identified Cx Nom (U) Culture exhibits no growth. [facility] No Panel InformationOrdered By: Dr. Jaime on 02-21-2023 Bedside Blood Gas PEEP 7 [facility] Bedside Blood Gas Pressure Support 7 [facility] Blood Gas Oxygen Percent 50 [facility] Blood Gas Sample Site R Brach [facility] Blood Gas Specimen Type ART [facility] Blood Gas Total CO2 38 mmol/L [facility] Blood Gas Vent Mode CPAP/PS [facility] Oxygen (BldA) [Partial press ure]Ordered By: Dr. Jaime on 02-21-2023 Oxygen (Bld) [Partial pressure] 99 mmHG 75-100 [facility] Review by pathologistOrdered By: Dr. Padron on 02-21-2023 Pathologist review Ajit (Unsp spec) [Interp] Reviewed [facility] Comment on above: Previous reported re sult: March bernarda Edited by: RGOOD on 02/23/23:1043Pancytopenia.Leukopenia Normocytic anemia.Mild ThrombocytopeniaClinical correlation necessary.Blas Carrillo M.D. 02/23/23 AMENDED REPORT 02/23/23 1043 PATH REV previously reported as: Uyen menchaca Vancomycin troughOrdered By: Dr. Padron on 02-21-2023 Vancomycin trough [Mass/Vol] 25.5 ug/mL 5.0-15.0 [facility] Comment on above: VANCOMYCIN STANDARED DRUG THERAPY TROUGH LEVEL: 5.0 - 15.0 mg/L VANCOMYCIN HIGH INTENSITY THERAPY TROUGH LEVEL: 15.0 - 20.0 mg/L High Intensity therapy recommended for serious lifethreatening infections include:- Azjdjexejs-Zltmdlfuyhfu-Vnygjepog (Ventilator/Healtcare Associated)-Sepsis PLEASE CONTACT PHARMACY SERVICES (#9166) FOR INTERPRETATIONOF RESULTS. pH measurementOrdered By: Dr Che Jaime on 02-21-2023 pH (Unsp spec) 7.45 [pH] 7.35-7.45 [facility] Assessment of wrist artery p atency prior to arterial punctureOrdered By: Dr. Padron on 02-20-2023 Arterial patency Wrist artery --pre arterial puncture Positive [facility] Basophil percentageOrdered B y: Dr. Monique on 02-20-2023 Triglyceride [Mass/Vol] 141 mg/dL <199 [facility] Comment on above: The drugs N-Acetylcy steine and Metamizole may falsely depress this assay.Serum Triglycerides Reference Interval Normal <150 mg/dL Borderline high 150 - 199 mg/dL High 200 - 499 mg/dL Very High > or = 500 mg/dL Laboratory - Chemistry and C hemistry - challengeOrdered By: Dr. Monique on 02-20-2023 CK [Catalytic activity/Vol] 26 U/L 26-192 [facility] No Panel InformationOrdered By: Dr. Padron on 02-20-2023 Blood Gas Respiration Rate 15 [facility] Oxygen Delivery Device Adult Vent [facility] Basophil percentageOrdered B y: Dr. Padron on 02-19-2023 Basophil percentage 3.6 mg/dL 2.5-4.9 [facility] Laboratory - Chemistry and C hemistry - challengeOrdered By: Dr. Padron on 02-19-2023 Magnesium [Mass/Vol] 2.0 mg/dL 1.6-2.6 [facility] No Panel InformationOrdered By: Dr. Padron on 02-19-2023 Bld Gas Crit Called To/Read Back By Yes [facility] Blood Gas Notified Amanda MONIQUE [facility] Blood Gas Tidal Volume 325 [facility] Laboratory - Hematology and Cell countsOrdered By: Dr. Resendiz on 02-18-2023 Anisocytosis Ql (Bld) 1+ [facility] No Panel InformationOrdered By: Dr. Padron on 02-18-2023 Blood Gas Notified Time 1716 [facility] No Panel InformationOrdered By: Dr. Monique on 02-18-2023 Miscellaneous Test See comment [facility] Comment on above: TEST RESULT LIMITSRe spiratory [...] Detected Not Detected __ TESTING PERFORMED AT [facility]. ORIGINAL REPORT ON FILE IN LAB CONTAINS ADDITIONAL TEST SITE INFORMATION. No Panel InformationOrdered By: Dr. Resendiz on 02-18-2023 Thyroid Stimulating Hormone (TSH) 0.74 uIU/mL 0.358-3.74 [facility] Methicillin-Resist S.aureus DNA PCR Positive Negative [facility] Serum procalcitonin measurem entOrdered By: Dr. Resendiz on 02-18-2023 Procalcitonin [Mass/Vol] 0.13 ng/mL 0.00-0.09 [facility] Comment on above: A procalcitonin (PCT ) [...] Auto (Unsp spec) [#/Vol] 0.69 10*3/uL 0.83-4.51 [facility] Assessment of wrist artery p atency prior to arterial punctureOrdered By: Dr. Resendiz on 02-17-2023 Arterial patency Wrist artery --pre arterial puncture Positive [facility] Base excessOrdered By: Dr. Deepika hernandez on 02-17-2023 Base excess Calc (BldV) [Moles/Vol] 26 mmol/L -2-2 [facility] Basophil percentageOrdered B y: Dr. Resendiz on 02-17-2023 Basophil percentage 51.8 mmol/L 22-26 [facility] Basophils/100 WBC (Bld) 88 % 95-99 [facility] Basophil percentageOrdered B y: Dr. Tsai on 02-17-2023 Basophil percentage 0 SEEN /hpf 0-5 [facility] Basophils/100 WBC (Bld) 0.4 % 0-1 [facility] Bilirubin [Mass/Vol] 0.50 mg/dL 0.20-1.00 [facility] Comment on above: For patients on eltr ombopag therapy, use of Dimension [place] TBIL is not recommended. Chloride [Moles/Vol] 102 mmol/L 98-107 [facility] Eosinophils/100 WBC (Bld) 0.2 % 0-5 [facility] Glucose [Mass/Vol] 238 mg/dL 74-106 [facility] Comment on above: Glucose result great er than or equal to 200 mg/dLsuggests DIABETES MELLITUS per A.D.A. criteria. Neutrophils (Bld) [#/Vol] 9.1 10*3/uL 2.0-7.7 [facility] Neutrophils/100 WBC (Bld) 87.0 % 47-70 [facility] Potassium [Moles/Vol] 4.1 mmol/L 3.5-5.1 [facility] Protein [Mass/Vol] 7.6 g/dL 6.4-8.2 [facility] Sodium [Moles/Vol] 145 mmol/L 136-145 [facility] WBC (Bld) [#/Vol] 10.5 10*3/uL 4.4-11.0 [facility] Bilirubin Test strip Ql (U)O rdered By: Dr. Tsai on 02-17-2023 Bilirubin Ql (U) Negative Negative [facility] Blood erythrocytes count (nu mber/volume)Ordered By: Dr. Tsai on 02-17-2023 RBC (Bld) [#/Vol] 3.69 10*6/uL 4.2-5.4 [facility] Blood hemoglobin measurement (mass/volume)Ordered By: Dr. Tsai on 02-17-2023 Hemoglobin (Bld) [Mass/Vol] 10.1 g/dL 12.0-15.0 [facility] Blood lymphocytes/100 leukoc ytesOrdered By: Dr. Tsai on 02-17-2023 Lymphocytes/100 WBC (Bld) 6.6 % 19-41 [facility] Blood monocytes/100 leukocyt esOrdered By: Dr. Tsai on 02-17-2023 Monocytes/100 WBC (Bld) 3.6 % 0-10 [facility] Blood platelet mean volumeOr dered By: Dr. Tsai on 02-17-2023 Platelet mean volume (Bld) [Entitic vol] 8.4 fL 6.2-12.0 [facility] CO2 (BldA) [Partial pressure ]Ordered By: Dr. Resendiz on 02-17-2023 CO2 (Bld) [Partial pressure] 96.6 mm[Hg] 35-45 [facility] Determination of erythrocyte mean corpuscular volume (MCV)Ordered By: Dr. Tsai on 02-17-2023 MCV (RBC) [Entitic vol] 101.1 fL 81-99 [facility] Hematocrit Auto (Bld) [Volum e fraction]Ordered By: Dr. Tsai on 02-17-2023 Hematocrit (Bld) [Volume fraction] 37.3 % 37-47 [facility] Hyaline casts LM.LPF (Urine sed) [#/Area]Ordered By: Dr. Tsai on 02-17-2023 Hyaline casts (Urine sed) [#/Area] 0 /[LPF] 0-5 [facility] Ketones Test strip Ql (U)Ord ered By: Dr. Tsai on 02-17-2023 Ketones Ql (U) Negative Negative [facility] Laboratory - Chemistry and C hemistry - challengeOrdered By: Dr. Tsai on 02-17-2023 ALP [Catalytic activity/Vol] 99 U/L 45-117 [facility] ALT [Catalytic activity/Vol] 26 U/L 13-56 [facility] CO2 [Moles/Vol] 45.0 mmol/L 21.0-32.0 [facility] Globulin (S) [Mass/Vol] 4.7 g/dL 2.2-4.2 [facility] Urea nitrogen/Creatinine [Mass ratio] 36.2 mg/mg 10-20 [facility] Laboratory - Chemistry and C hemistry - challengeOrdered By: Dr. Resendiz on 02-17-2023 Natriuretic peptide B (Bld) [Mass/Vol] 132.9 pg/mL 0-100 [facility] Laboratory - Drug toxicology Ordered By: Dr. Tsai on 02-17-2023 Amphetamines Ql (U) Negative <1000 ng/mL [facility] Benzodiazepines Ql (U) Negative < 200 ng/mL [facility] Cannabinoids Screen Ql (U) Negative < 50 ng/mL [facility] Cocaine Ql (U) Negative < 300 ng/mL [facility] Opiates Ql (U) Negative < 300 ng/mL [facility] Laboratory - Hematology and Cell countsOrdered By: Dr. Tsai on 02-17-2023 Erythrocyte distribution width (RBC) [Entitic vol] 55.7 fL 35.1-43.9 [facility] Erythrocyte distribution width (RBC) [Ratio] 15.0 % 11.6-14.6 [facility] Immature granulocytes/100 WBC (Bld) 2.200 % 0.0-0.9 [facility] Comment on above: IG% - Immature Granu locytes (promyelocytes, myelocytes and metamyelocytes) > 1% indicates that a LEFT SHIFT is Present. MCH (RBC) [Entitic mass] 27.4 pg 27.0-32.0 [facility] Nucleated RBC/100 WBC (Bld) [Ratio] 0.2 % 0-5 [facility] MCHC Auto (RBC) [Mass/Vol]Or dered By: Dr. Tsai on 02-17-2023 MCHC (RBC) [Mass/Vol] 27.1 g/dL 32-36 [facility] Mucus LM Ql (Urine sed)Order ed By: Dr. Tsai on 02-17-2023 Mucus Ql (Urine sed) 0 SEEN /hpf [facility] Nitrite Test strip Ql (U)Ord ered By: Dr. Tsai on 02-17-2023 Nitrite Ql (U) Negative Negative [facility] No Panel InformationOrdered By: Dr. Resendiz on 02-17-2023 Bedside Blood Gas PEEP 5 [facility] Bld Gas Crit Called To/Read Back By Yes [facility] Blood Gas Notified Time 2245 [facility] Blood Gas Notified Whom ED [facility] Blood Gas Oxygen Percent 60 [facility] Blood Gas Respiration Rate 16 [facility] Blood Gas Sample Site L RADIAL [facility] Blood Gas Specimen Type ART [facility] Blood Gas Tidal Volume 450 [facility] Blood Gas Total CO2 > 50 mmol/L [facility] Blood Gas Vent Mode AC/VC [facility] Oxygen Delivery Device Vent [facility] No Panel InformationOrdered By: Dr. Tsai on 02-17-2023 Ethyl Alcohol Level < 3.0 mg/dL [facility] Comment on above: The serum:whole bloo d ethanol ratio is approximately 1.14and varies slightly with hematocrit. Medical Alcohol reference interval and critical value innon-tolerant individuals; 50 - 100 Impairment 100 Intoxication 100 - 250 Severe Poisoning 250 - 400 Deep/possible fatal coma MDMA (Ecstasy) Screen Negative < 500 ng/mL [facility] Urine Barbiturates Screen Negative < 200 ng/mL [facility] Urine Drug Screen Comment [facility] Comment on above: CONFIRMATORY TESTING FOR ALL [...] Methadone Screen Negative < 300 ng/mL [facility] Estimated Creatinine Clearance Calc 45.09 ml/min [facility] Estimated GFR (MDRD) Amer 118 mL/min >60 [facility] Comment on above: GFR Calc Estimated GFR (MDRD) Non-Af Amer 98 mL/min >60 [facility] Comment on above: Non- GFR Calc Troponin I High Sensitivity 13 pg/mL 3.0-54.0 [facility] Comment on above: Please Note: New Rosalie t Units and Gender Specific Reference Ranges. For more information see Policy Stat Procedure [employer] High Sensitivity Troponin (TNIH) and attachments. Oxygen (BldA) [Partial press ure]Ordered By: Dr. Resendiz on 02-17-2023 Oxygen (Bld) [Partial pressure] 64 mmHG 75-100 [facility] Platelets bldOrdered By: Dr. Tsai on 02-17-2023 Platelets (Bld) [#/Vol] 163 10*3/uL 150-450 [facility] Protein Test strip Ql (U)Ord ered By: Dr. Tsai on 02-17-2023 Protein Ql (U) 100 mg/dl Negative [facility] Serum or plasma albumin celina urement (mass/volume)Ordered By: Dr. Tsai on 02-17-2023 Albumin [Mass/Vol] 2.9 g/dL 3.2-5.0 [facility] Serum or plasma albumin/glob ulin mass ratioOrdered By: Dr. Tsai on 02-17-2023 Albumin/Globulin [Mass ratio] 0.6 {ratio} 0.9-2.4 [facility] Serum or plasma calcium celina urement (mass/volume)Ordered By: Dr. Tsai on 02-17-2023 Calcium [Mass/Vol] 8.9 mg/dL 8.5-10.1 [facility] Serum or plasma creatinine m easurement (mass/volume)Ordered By: Dr. Tsai on 02-17-2023 Creatinine [Mass/Vol] 0.64 mg/dL 0.55-1.02 [facility] Comment on above: The validity of the calculated GFR & GFRAA in patients over 70 years has not been determined. Clinical correlation is essential. Serum or plasma urea nitroge n measurement (mass/volume)Ordered By: Dr. Tsai on 02-17-2023 Urea nitrogen [Mass/Vol] 23 mg/dL 7-18 [facility] Squamous epithelial cells de tection in urine sediment by light microscopyOrdered By: Dr. Tsai on 02-17-2023 Epithelial cells.squamous LM Ql (Urine sed) 0-5 SEEN /hpf 5-10 [facility] Thin prep Papanicolaou smear with manual screeningOrdered By: Dr. Tsai on 02-17-2023 Thin prep Papanicolaou smear with manual screening 21 U/L 15-37 [facility] Thin prep Papanicolaou smear with manual screening -2 5-15 [facility] Urine blood detectionOrdered By: Dr. Tsai on 02-17-2023 RBC Ql (U) 25 /ul Negative [facility] RBC Ql (U) 0-5 SEEN /hpf 0-5 [facility] Urine clarityOrdered By: Dr. Tsai on 02-17-2023 Clarity (U) Sl. Cloudy Clear [facility] Urine coarse granular cast d etectionOrdered By: Dr. Tsai on 02-17-2023 Coarse Granular Casts LM Ql (Urine sed) 0-5 SEEN /lpf 0-5 /lpf [facility] Urine color determinationOrd ered By: Dr. Tsai on 02-17-2023 Color (U) Yellow Yellow [facility] Urine glucose detectionOrder ed By: Dr. Tsai on 02-17-2023 Glucose Ql (U) Normal mg/dl Normal [facility] Urine leukocyte esterase det ection by dipstickOrdered By: Dr. Tsai on 02-17-2023 Leukocyte esterase Test strip Ql (U) Negative Negative [facility] Urine pHOrdered By: Dr. Paul kohli on 02-17-2023 pH (U) 5.0 [pH] 5.0 - 8.0 [facility] Urine phencyclidine (PCP) de tectionOrdered By: Dr. Tsai on 02-17-2023 Phencyclidine Ql (U) Negative < 25 ng/mL [facility] Urine sediment bacteria coun t by microscopy (number/high power field)Ordered By: Dr. Tsai on 02-17-2023 Bacteria LM.HPF (Urine sed) [#/Area] 0 /[HPF] None Seen [facility] Urine specific gravity measu rementOrdered By: Dr. Tsai on 02-17-2023 Specific gravity (U) [Rel density] 1.030 1.002-1.030 [facility] Urobilinogen Auto test strip Ql (U)Ordered By: Dr. Tsai on 02-17-2023 Urobilinogen Ql (U) Normal mg/dl Normal [facility] pH measurementOrdered By: Dr Che Resendiz on 02-17-2023 pH (Unsp spec) 7.34 [pH] 7.35-7.45 [facility] No Panel InformationOrdered By: Jonathan Dillard on 02-07-2023 Miscellaneous Test See comment [facility] Comment on above: TEST RESULTS LIMITSS ARS-CoV-2, [id number], ISA Not Detected Not DetectedThis nucleic acid amplification test was developed and its performance characteristics determined by [employer]. Nucleic acid amplification tests include RT-PCR and [...] result in this assay. TESTING PERFORMED AT [facility]. ORIGINAL REPORT ON FILE IN LAB CONTAINS ADDITIONAL TEST SITE INFORMATION. Absolute lymphocyte countOrd ered By: Dr. Jeffries on 01-11-2023 Lymphocytes Auto (Unsp spec) [#/Vol] 0.59 10*3/uL 0.83-4.51 [facility] Basophil percentageOrdered B y: Dr. Jeffries on 01-11-2023 Basophils/100 WBC (Bld) 0.2 % 0-1 [facility] Bilirubin [Mass/Vol] 0.50 mg/dL 0.20-1.00 [facility] Comment on above: For patients on eltr ombopag therapy, use of Dimension [place] TBIL is not recommended. Chloride [Moles/Vol] 99 mmol/L 98-107 [facility] Eosinophils/100 WBC (Bld) 1.1 % 0-5 [facility] Glucose [Mass/Vol] 124 mg/dL 74-106 [facility] Comment on above: Fasting Glucose resu lt from 100 to 125 mg/dL suggests IMPAIRED HOMEOSTASIS per A.D.A. criteria. LDH [Catalytic activity/Vol] 147 U/L 84-246 [facility] Neutrophils (Bld) [#/Vol] 4.4 10*3/uL 2.0-7.7 [facility] Neutrophils/100 WBC (Bld) 81.5 % 47-70 [facility] Potassium [Moles/Vol] 4.2 mmol/L 3.5-5.1 [facility] Protein [Mass/Vol] 7.1 g/dL 6.4-8.2 [facility] Sodium [Moles/Vol] 146 mmol/L 136-145 [facility] WBC (Bld) [#/Vol] 5.4 10*3/uL 4.4-11.0 [facility] Blood erythrocytes count (nu mber/volume)Ordered By: Dr. Jeffries on 01-11-2023 RBC (Bld) [#/Vol] 3.43 10*6/uL 4.2-5.4 [facility] Blood hemoglobin measurement (mass/volume)Ordered By: Dr. Jeffries on 01-11-2023 Hemoglobin (Bld) [Mass/Vol] 9.7 g/dL 12.0-15.0 [facility] Blood lymphocytes/100 leukoc ytesOrdered By: Dr. Jeffries on 01-11-2023 Lymphocytes/100 WBC (Bld) 11.0 % 19-41 [facility] Blood manual differential co mment interpretation (narrative result)Ordered By: Dr. Jeffries on 01-11-2023 Manual differential comment Ajit (Bld) [Interp] SCANNED [facility] Blood monocytes/100 leukocyt esOrdered By: Dr. Jeffries on 01-11-2023 Monocytes/100 WBC (Bld) 5.6 % 0-10 [facility] Blood platelet mean volumeOr dered By: Dr. Jeffries on 01-11-2023 Platelet mean volume (Bld) [Entitic vol] 8.4 fL 6.2-12.0 [facility] Determination of erythrocyte mean corpuscular volume (MCV)Ordered By: Dr. Jeffries on 01-11-2023 MCV (RBC) [Entitic vol] 97.4 fL 81-99 [facility] Hematocrit Auto (Bld) [Volum e fraction]Ordered By: Dr. Jeffries on 01-11-2023 Hematocrit (Bld) [Volume fraction] 33.4 % 37-47 [facility] Hemoglobin in reticulocytes (mass per reticulocyte)Ordered By: Dr. Jeffries on 01-11-2023 Hemoglobin (Reticulocytes) [Entitic mass] 24.6 pg 30-35 [facility] Hypochromatic red blood cell detectionOrdered By: Dr. Jeffries on 01-11-2023 Hypochromia Ql (Bld) 2+ [facility] Iron measurement (mass/mass) Ordered By: Dr. Jeffries on 01-11-2023 Iron (Unsp spec) [Mass/Mass] 35 ug/dL 50-170 [facility] Laboratory - Chemistry and C hemistry - challengeOrdered By: Dr. Jeffries on 01-11-2023 ALP [Catalytic activity/Vol] 81 U/L 45-117 [facility] ALT [Catalytic activity/Vol] 15 U/L 13-56 [facility] CO2 [Moles/Vol] 43.0 mmol/L 21.0-32.0 [facility] Cobalamin (Vitamin B12) [Mass/Vol] 561 pg/mL 211-911 [facility] Globulin (S) [Mass/Vol] 3.9 g/dL 2.2-4.2 [facility] Urea nitrogen/Creatinine [Mass ratio] 22.3 mg/mg 10-20 [facility] Laboratory - Hematology and Cell countsOrdered By: Dr. Jeffries on 01-11-2023 Erythrocyte distribution width (RBC) [Entitic vol] 51.6 fL 35.1-43.9 [facility] Erythrocyte distribution width (RBC) [Ratio] 14.5 % 11.6-14.6 [facility] Immature granulocytes/100 WBC (Bld) 0.600 % 0.0-0.9 [facility] Comment on above: IG% - Immature Granu locytes (promyelocytes, myelocytes and metamyelocytes) > 1% indicates that a LEFT SHIFT is Present. MCH (RBC) [Entitic mass] 28.3 pg 27.0-32.0 [facility] Nucleated RBC/100 WBC (Bld) [Ratio] 0 % 0-5 [facility] MCHC Auto (RBC) [Mass/Vol]Or dered By: Dr. Jeffries on 01-11-2023 MCHC (RBC) [Mass/Vol] 29.0 g/dL 32-36 [facility] No Panel InformationOrdered By: Dr. Jeffries on 01-11-2023 Estimated GFR (MDRD) Amer 102 mL/min >60 [facility] Comment on above: GFR Calc Estimated GFR (MDRD) Non-Af Amer 85 mL/min >60 [facility] Comment on above: Non- GFR Calc Immature Platelet Fraction 1.3 % 1.0-7.9 [facility] Comment on above: Low PLT + Low IPF faust ggest a bone marrow production disorderLow PLT + high IPF suggests peripheral destruction(e.g.ITP, TTP, HIT, DIC, autoimmune) or bone marrow recoveryTrending of serial IPF measurements is recommended when evaluating for bone marrow responesValue above normal range indicates an increase in RBC cellular response from bone marrow. Immature Reticulocyte Fraction 23.00 % 3.00-15.90 [facility] Reticulocyte Count 2.53 % 0.5-1.5 [facility] [facility] Total Iron Binding Capacity 186 ug/dL 250-450 [facility] Platelets bldOrdered By: Dr. Jeffries on 01-11-2023 Platelets (Bld) [#/Vol] 138 10*3/uL 150-450 [facility] Serum or plasma albumin celina urement (mass/volume)Ordered By: Dr. Jeffries on 01-11-2023 Albumin [Mass/Vol] 3.2 g/dL 3.2-5.0 [facility] Serum or plasma albumin/glob ulin mass ratioOrdered By: Dr. Jeffries on 01-11-2023 Albumin/Globulin [Mass ratio] 0.8 {ratio} 0.9-2.4 [facility] Serum or plasma calcium celina urement (mass/volume)Ordered By: Dr. Jeffries on 01-11-2023 Calcium [Mass/Vol] 9.1 mg/dL 8.5-10.1 [facility] Serum or plasma creatinine m easurement (mass/volume)Ordered By: Dr. Jeffries on 01-11-2023 Creatinine [Mass/Vol] 0.72 mg/dL 0.55-1.02 [facility] Comment on above: The validity of the calculated GFR & GFRAA in patients over 70 years has not been determined. Clinical correlation is essential. Serum or plasma ferritin carter surement (mass/volume)Ordered By: Dr. Jeffries on 01-11-2023 Ferritin [Mass/Vol] 55 ng/mL 8-252 [facility] Serum or plasma folate measu rement (mass/volume)Ordered By: Dr. Jeffries on 01-11-2023 Folate [Mass/Vol] 73.30 ng/mL 3.1-55.4 [facility] Serum or plasma iron saturat ion measurement (mass fraction)Ordered By: Dr. Jeffries on 01-11-2023 Iron saturation [Mass fraction] 18.8 % 15.0-55.0 [facility] Serum or plasma urea nitroge n measurement (mass/volume)Ordered By: Dr. Jeffries on 01-11-2023 Urea nitrogen [Mass/Vol] 16 mg/dL 7-18 [facility] Thin prep Papanicolaou smear with manual screeningOrdered By: Dr. Jeffries on 01-11-2023 Thin prep Papanicolaou smear with manual screening 14 U/L 15-37 [facility] Thin prep Papanicolaou smear with manual screening 4 5-15 [facility] Progress Noteon 11-02-2022 Progress Note Obese hypertensive [...] pancytopenia. 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 [...] Stable, follow-up with surgery as discussed Normal [facility] Basophil percentageOrdered B y: Stef Villegas on 11-01-2022 WBC (Bld) [#/Vol] 4.9 10*3/uL 4.4-11.0 [facility] Blood erythrocytes count (nu mber/volume)Ordered By: Stef Villegas on 11-01-2022 RBC (Bld) [#/Vol] 3.26 10*6/uL 4.2-5.4 [facility] Blood hemoglobin measurement (mass/volume)Ordered By: Stef Villegas on 11-01-2022 Hemoglobin (Bld) [Mass/Vol] 8.9 g/dL 12.0-15.0 [facility] Blood platelet mean volumeOr dered By: Stef Villegas on 11-01-2022 Platelet mean volume (Bld) [Entitic vol] 10.0 fL 6.2-12.0 [facility] Determination of erythrocyte mean corpuscular volume (MCV)Ordered By: Stef Villegas on 11-01-2022 MCV (RBC) [Entitic vol] 96.0 fL 81-99 [facility] Hematocrit Auto (Bld) [Volum e fraction]Ordered By: Stef Villegas on 11-01-2022 Hematocrit (Bld) [Volume fraction] 31.3 % 37-47 [facility] Iron measurement (mass/mass) Ordered By: Stef Villegas on 11-01-2022 Iron (Unsp spec) [Mass/Mass] 29 ug/dL 50-170 [facility] Laboratory - Chemistry and C hemistry - challengeOrdered By: Stef Villegas on 11-01-2022 Cobalamin (Vitamin B12) [Mass/Vol] 208 pg/mL 211-911 [facility] Laboratory - Hematology and Cell countsOrdered By: Stef Villegas on 11-01-2022 Erythrocyte distribution width (RBC) [Entitic vol] 49.5 fL 35.1-43.9 [facility] Erythrocyte distribution width (RBC) [Ratio] 14.2 % 11.6-14.6 [facility] MCH (RBC) [Entitic mass] 27.3 pg 27.0-32.0 [facility] MCHC Auto (RBC) [Mass/Vol]Or dered By: Stef Villegas on 11-01-2022 MCHC (RBC) [Mass/Vol] 28.4 g/dL 32-36 [facility] No Panel InformationOrdered By: Stef Villegas on 11-01-2022 Total Iron Binding Capacity 212 ug/dL 250-450 [facility] Platelets bldOrdered By: Elida Villegas on 11-01-2022 Platelets (Bld) [#/Vol] 94 10*3/uL 150-450 [facility] Comment on above: PREVIOUS RESULTS <10 0. Serum or plasma ferritin carter surement (mass/volume)Ordered By: Stef Villegas on 11-01-2022 Ferritin [Mass/Vol] 45 ng/mL 8-252 [facility] Serum or plasma folate measu rement (mass/volume)Ordered By: Stef Bakari on 11-01-2022 Folate [Mass/Vol] 6.00 ng/mL 3.1-55.4 [facility] Serum or plasma iron saturat ion measurement (mass fraction)Ordered By: Stef Bakari on 11-01-2022 Iron saturation [Mass fraction] 13.7 % 15.0-55.[address] [facility] [address] SPINE CERVICAL W/O CONTRA STon 10-30-2022 [...] 10/30/2022 12:08:00 PM Ordering Provider: TRACE MATTHEWS [facility]ly [facility] ([place]) Progress Noteon 10-20-2022 Progress Note Well-controlled hypertensive [...] discussed discharge status with nursing and social welfare clerk is looking into assisted living facility placement in the near future. Normal [facility] XR SPINE CERVICAL AP/LAT/FLE X/EXTon 10-06-2022 [...] 2021 Basophil percentage 0 SEEN /hpf 0-[facility]: Bilirubin Test strip Ql (U)o n 10-05-2022 Bilirubin Ql (U) Negative Negative [facility] Work Phone: Ketones Test strip Ql (U)on 10-05-2022 Ketones Ql (U) Negative Negative [facility] Work Phone: Mucus LM Ql (Urine sed)on Mucus Ql (Urine sed) 0 SEEN /hpf [facility] Work Phone: Nitrite Test strip Ql (U)on 10-05-2022 Nitrite Ql (U) Negative Negative [facility] Work Phone: Protein Test strip Ql (U)on 10-05-2022 Protein Ql (U) Negative Negative [facility] Work Phone: Squamous epithelial cells de tection in urine sediment by light microscopyon 10-05-2022 Epithelial cells.squamous LM Ql (Urine sed) 0 SEEN /hpf 5-10 [facility] Work Phone: Urine blood detectionon 09-15 RBC Ql (U) Negative Negative [facility] Work Phone: RBC Ql (U) 0 SEEN /hpf 0-5 [facility] Work Phone: Urine clarityon 10-05-2022 Clarity (U) Clear Clear [facility] Work Phone: Urine color determinationon 10-05-2022 Color (U) Yellow Yellow [facility] Work Phone: Urine glucose detectionon Glucose Ql (U) Normal mg/dl Normal [facility] Work Phone: Urine leukocyte esterase det ection by dipstickon 10-05-2022 Leukocyte esterase Test strip Ql (U) Negative Negative [facility] Work Phone: Urine pHon 10-05-2022 pH (U) 7.0 [pH] 5.0 - 8.0 [facility] Work Phone: Urine sediment bacteria coun t by microscopy (number/high power field)on 10-05-2022 Bacteria LM.HPF (Urine sed) [#/Area] 0 /[HPF] None Seen [facility] Work Phone: Urine specific gravity measu rementon 10-05-2022 Specific gravity (U) [Rel density] 1.010 1.002-1.030 [facility] Work Phone: Urobilinogen Auto test strip Ql (U)on 10-05-2022 Urobilinogen Ql (U) Normal mg/dl Normal [facility] Work Phone: Absolute lymphocyte counton 09-29-2022 Lymphocytes Auto (Unsp spec) [#/Vol] 0.69 10*3/uL 0.83-4.51 [facility] Work Phone: Basophil percentageon 2021 Basophils/100 WBC (Bld) 0.3 % 0-1 [facility] Work Phone: Eosinophils/100 WBC (Bld) 2.1 % 0-5 [facility] Work Phone: Neutrophils (Bld) [#/Vol] 2.3 10*3/uL 2.0-7.7 [facility] Work Phone: Neutrophils/100 WBC (Bld) 69.9 % 47-70 [facility] Work Phone: WBC (Bld) [#/Vol] 3.3 10*3/uL 4.4-11.0 [facility] Work Phone: Blood erythrocytes count (nu mber/volume)on 09-29-2022 RBC (Bld) [#/Vol] 3.17 10*6/uL 4.2-5.4 [facility] Work Phone: Blood hemoglobin measurement (mass/volume)on 09-29-2022 Hemoglobin (Bld) [Mass/Vol] 8.8 g/dL 12.0-15.0 [facility] Work Phone: Blood lymphocytes/100 leukoc yteson 09-29-2022 Lymphocytes/100 WBC (Bld) 21.0 % 19-41 [facility] Work Phone: Blood monocytes/100 leukocyt eson 09-29-2022 Monocytes/100 WBC (Bld) 6.1 % 0-10 [facility] Work Phone: Blood platelet mean volumeon 09-29-2022 Platelet mean volume (Bld) [Entitic vol] 10.0 fL 6.2-12.0 [facility] Work Phone: Determination of erythrocyte mean corpuscular volume (MCV)on 09-29-2022 MCV (RBC) [Entitic vol] 97.2 fL 81-99 [facility] Work Phone: Hematocrit Auto (Bld) [Volum e fraction]on 09-29-2022 Hematocrit (Bld) [Volume fraction] 30.8 % 37-47 [facility] Work Phone: Laboratory - Hematology and Cell countson 09-29-2022 Erythrocyte distribution width (RBC) [Entitic vol] 49.7 fL 35.1-43.9 [facility] Work Phone: Erythrocyte distribution width (RBC) [Ratio] 14.0 % 11.6-14.6 [facility] Work Phone: Immature granulocytes/100 WBC (Bld) 0.600 % 0.0-0.9 [facility] Work Phone: Comment on above: IG% - Immature Granu locytes (promyelocytes, myelocytes and metamyelocytes) > 1% indicates that a LEFT SHIFT is Present. MCH (RBC) [Entitic mass] 27.8 pg 27.0-32.0 [facility] Work Phone: [phone] Nucleated RBC/100 WBC (Bld) [Ratio] 0.9 % 0-5 [facility] Work Phone: [phone] MCHC Auto (RBC) [Mass/Vol]on 09-29-2022 MCHC (RBC) [Mass/Vol] 28.6 g/dL 32-36 [facility] Work Phone: Platelets bldon 09-29-2022 Platelets (Bld) [#/Vol] 83 10*3/uL 150-450 [facility] Work Phone: [phone] Basophil percentageon 2021 Basophil percentage 5-10 SEEN /hpf 0-5 [facility] Work Phone: Bilirubin Test strip Ql (U)o n 09-08-2022 Bilirubin Ql (U) Negative Negative [facility] Work Phone: Ketones Test strip Ql (U)on 09-08-2022 Ketones Ql (U) Negative Negative [facility] Work Phone: Mucus LM Ql (Urine sed)on Mucus Ql (Urine sed) 1+ /hpf [facility] Work Phone: Nitrite Test strip Ql (U)on 09-08-2022 Nitrite Ql (U) Positive Negative [facility] Work Phone: Protein Test strip Ql (U)on 09-08-2022 Protein Ql (U) Negative Negative [facility] Work Phone: Squamous epithelial cells de tection in urine sediment by light microscopyon 09-08-2022 Epithelial cells.squamous LM Ql (Urine sed) 0-5 SEEN /hpf 5-10 [facility] Work Phone: Urine blood detectionon 08-15 RBC Ql (U) 10 /ul Negative [facility] Work Phone: RBC Ql (U) 0-5 SEEN /hpf 0-5 [facility] Work Phone: Urine clarityon 09-08-2022 Clarity (U) Sl. Cloudy Clear [facility] Work Phone: Urine color determinationon 09-08-2022 Color (U) Yellow Yellow [facility] Work Phone: Urine glucose detectionon Glucose Ql (U) Normal mg/dl Normal [facility] Work Phone: Urine leukocyte esterase det ection by dipstickon 09-08-2022 Leukocyte esterase Test strip Ql (U) 500 /ul Negative [facility] Work Phone: Urine pHon 09-08-2022 pH (U) 6.5 [pH] 5.0 - 8.0 [facility] Work Phone: Urine sediment bacteria coun t by microscopy (number/high power field)on 09-08-2022 Bacteria LM.HPF (Urine sed) [#/Area] 2 /[HPF] None Seen [facility] Work Phone: Urine specific gravity measu rementon 09-08-2022 Specific gravity (U) [Rel density] 1.010 1.002-1.030 [facility] Work Phone: Urobilinogen Auto test strip Ql (U)on 09-08-2022 Urobilinogen Ql (U) Normal mg/dl Normal [facility] Work Phone: [phone] Absolute lymphocyte counton 09-01-2022 Lymphocytes Auto (Unsp spec) [#/Vol] 0.68 10*3/uL 0.83-4.51 [facility] Work Phone: Basophil percentageon 2021 Basophils/100 WBC (Bld) 0.3 % 0-1 [facility] Work Phone: Bilirubin [Mass/Vol] 0.50 mg/dL 0.20-1.00 [facility] Work Phone: Comment on above: For patients on eltr ombopag therapy, use of Dimension [employer] TBIL is not recommended. Chloride [Moles/Vol] 106 mmol/L 98-107 [facility] Work Phone: Eosinophils/100 WBC (Bld) 1.5 % 0-5 [facility] Work Phone: Glucose [Mass/Vol] 86 mg/dL 74-106 [facility] Work Phone: Neutrophils (Bld) [#/Vol] 2.4 10*3/uL 2.0-7.7 [facility] Work Phone: [phone] Neutrophils/100 WBC (Bld) 71.9 % 47-70 [facility] Work Phone: [phone] Potassium [Moles/Vol] 3.9 mmol/L 3.5-5.1 [facility] Work Phone: Protein [Mass/Vol] 6.4 g/dL 6.4-8.2 [facility] Work Phone: Sodium [Moles/Vol] 147 mmol/L 136-145 [facility] Work Phone: WBC (Bld) [#/Vol] 3.4 10*3/uL 4.4-11.0 [facility] Work Phone: [phone] Blood erythrocytes count (nu mber/volume)on 09-01-2022 RBC (Bld) [#/Vol] 2.97 10*6/uL 4.2-5.4 [facility] Work Phone: Blood hemoglobin measurement (mass/volume)on 09-01-2022 Hemoglobin (Bld) [Mass/Vol] 8.6 g/dL 12.0-15.0 [facility] Work Phone: Blood lymphocytes/100 leukoc yteson 09-01-2022 Lymphocytes/100 WBC (Bld) 20.3 % 19-41 [facility] Work Phone: Blood monocytes/100 leukocyt eson 09-01-2022 Monocytes/100 WBC (Bld) 5.7 % 0-10 [facility] Work Phone: Blood platelet adequacy dete ction by light microscopyon 09-01-2022 Platelets LM Ql (Bld) MOD DEC ADEQ [facility] Work Phone: Blood platelet mean volumeon 09-01-2022 Platelet mean volume (Bld) [Entitic vol] 9.3 fL 6.2-12.0 [facility] Work Phone: Determination of erythrocyte mean corpuscular volume (MCV)on 09-01-2022 MCV (RBC) [Entitic vol] 97.6 fL 81-99 [facility] Work Phone: Hematocrit Auto (Bld) [Volum e fraction]on 09-01-2022 Hematocrit (Bld) [Volume fraction] 29.0 % 37-47 [facility] Work Phone: Laboratory - Chemistry and C hemistry - challengeon 09-01-2022 ALP [Catalytic activity/Vol] 65 U/L 45-117 [facility] Work Phone: ALT [Catalytic activity/Vol] 19 U/L 13-56 [facility] Work Phone: CO2 [Moles/Vol] 40.0 mmol/L 21.0-32.0 [facility] Work Phone: Globulin (S) [Mass/Vol] 3.4 g/dL 2.2-4.2 [facility] Work Phone: Urea nitrogen/Creatinine [Mass ratio] 21.1 mg/mg 10-20 [facility] Work Phone: Laboratory - Hematology and Cell countson 09-01-2022 Erythrocyte distribution width (RBC) [Entitic vol] 49.0 fL 35.1-43.9 [facility] Work Phone: Erythrocyte distribution width (RBC) [Ratio] 13.7 % 11.6-14.6 [facility] Work Phone: Immature granulocytes/100 WBC (Bld) 0.300 % 0.0-0.9 [facility] Work Phone: Comment on above: IG% - Immature Granu locytes (promyelocytes, myelocytes and metamyelocytes) > 1% indicates that a LEFT SHIFT is Present. MCH (RBC) [Entitic mass] 29.0 pg 27.0-32.0 [facility] Work Phone: Nucleated RBC/100 WBC (Bld) [Ratio] 0 % 0-5 [facility] Work Phone: MCHC Auto (RBC) [Mass/Vol]on 09-01-2022 MCHC (RBC) [Mass/Vol] 29.7 g/dL 32-36 [facility] Work Phone: No Panel Informationon 09-01 Estimated GFR (MDRD) Amer 112 mL/min >60 [facility] Work Phone: Comment on above: GFR Calc Estimated GFR (MDRD) Non-Af Amer 93 mL/min >60 [facility] Work Phone: Comment on above: Non- GFR Calc Thyroid Stimulating Hormone (TSH) 2.06 uIU/mL 0.358-3.74 [facility] Work Phone: Platelets bldon 09-01-2022 Platelets (Bld) [#/Vol] 99 10*3/uL 150-450 [facility] Work Phone: RBC morphologyon 09-01-2022 RBC morphology finding Nom (Bld) NORM C+C NORMAL NORM C&C [facility] Work Phone: Serum or plasma albumin celina urement (mass/volume)on 09-01-2022 Albumin [Mass/Vol] 3.0 g/dL 3.2-5.0 [facility] Work Phone: Serum or plasma albumin/glob ulin mass ratioon 09-01-2022 Albumin/Globulin [Mass ratio] 0.9 {ratio} 0.9-2.4 [facility] Work Phone: Serum or plasma calcium celina urement (mass/volume)on 09-01-2022 Calcium [Mass/Vol] 8.8 mg/dL 8.5-10.1 [facility] Work Phone: Serum or plasma creatinine m easurement (mass/volume)on 09-01-2022 Creatinine [Mass/Vol] 0.66 mg/dL 0.55-1.02 [facility] Work Phone: Comment on above: The validity of the calculated GFR & GFRAA in patients over 70 years has not been determined. Clinical correlation is essential. Serum or plasma urea nitroge n measurement (mass/volume)on 09-01-2022 Urea nitrogen [Mass/Vol] 14 mg/dL 7-18 [facility] Work Phone: Thin prep Papanicolaou smear with manual screeningon 09-01-2022 Thin prep Papanicolaou smear with manual screening 21 U/L 15-37 [facility] Work Phone: Thin prep Papanicolaou smear with manual screening 1 5-15 [facility] Work Phone: Absolute lymphocyte counton 08-26-2022 Lymphocytes Auto (Unsp spec) [#/Vol] 0.68 10*3/uL 0.83-4.51 [facility] Work Phone: Basophil percentageon 2021 Basophils/100 WBC (Bld) 0.2 % 0-1 [facility] Work Phone: Eosinophils/100 WBC (Bld) 1.2 % 0-5 [facility] Work Phone: Neutrophils (Bld) [#/Vol] 3.0 10*3/uL 2.0-7.7 [facility] Work Phone: Neutrophils/100 WBC (Bld) 74.7 % 47-70 [facility] Work Phone: WBC (Bld) [#/Vol] 4.0 10*3/uL 4.4-11.0 [facility] Work Phone: Blood erythrocytes count (nu mber/volume)on 08-26-2022 RBC (Bld) [#/Vol] 2.88 10*6/uL 4.2-5.4 [facility] Work Phone: [phone] Blood hemoglobin measurement (mass/volume)on 08-26-2022 Hemoglobin (Bld) [Mass/Vol] 8.5 g/dL 12.0-15.0 [facility] Work Phone: Blood lymphocytes/100 leukoc yteson 08-26-2022 Lymphocytes/100 WBC (Bld) 17.0 % 19-41 [facility] Work Phone: Blood monocytes/100 leukocyt eson 08-26-2022 Monocytes/100 WBC (Bld) 6.7 % 0-10 [facility] Work Phone: Blood platelet mean volumeon 08-26-2022 Platelet mean volume (Bld) [Entitic vol] 9.3 fL 6.2-12.0 [facility] Work Phone: Determination of erythrocyte mean corpuscular volume (MCV)on 08-26-2022 MCV (RBC) [Entitic vol] 101.0 fL 81-99 [facility] Work Phone: [phone] Hematocrit Auto (Bld) [Volum e fraction]on 08-26-2022 Hematocrit (Bld) [Volume fraction] 29.1 % 37-47 [facility] Work Phone: Laboratory - Hematology and Cell countson 08-26-2022 Erythrocyte distribution width (RBC) [Entitic vol] 50.9 fL 35.1-43.9 [facility] Work Phone: Erythrocyte distribution width (RBC) [Ratio] 13.8 % 11.6-14.6 [facility] Work Phone: [phone] Immature granulocytes/100 WBC (Bld) 0.200 % 0.0-0.9 [facility] Work Phone: Comment on above: IG% - Immature Granu locytes (promyelocytes, myelocytes and metamyelocytes) > 1% indicates that a LEFT SHIFT is Present. MCH (RBC) [Entitic mass] 29.5 pg 27.0-32.0 [facility] Work Phone: Nucleated RBC/100 WBC (Bld) [Ratio] 0 % 0-5 [facility] Work Phone: [phone] MCHC Auto (RBC) [Mass/Vol]on 08-26-2022 MCHC (RBC) [Mass/Vol] 29.2 g/dL 32-36 [facility] Work Phone: Platelets bldon 08-26-2022 Platelets (Bld) [#/Vol] 105 10*3/uL 150-450 [facility] Work Phone: Basophil percentageon 2021 Chloride [Moles/Vol] 99 mmol/L 98-107 [facility] Work Phone: Cholesterol [Mass/Vol] 149 mg/dL <200 [facility] Work Phone: Comment on above: <200 mg/dL Desirable 200-240 mg/dL Borderline >240 mg/dL High Risk Glucose [Mass/Vol] 148 mg/dL 74-106 [facility] Work Phone: Comment on above: Fasting Glucose resu lt greater than or equal to 126 mg/dL suggests DIABETES MELLITUS per A.D.A. criteria. Potassium [Moles/Vol] 4.2 mmol/L 3.5-5.1 [facility] Work Phone: Sodium [Moles/Vol] 141 mmol/L 136-145 [facility] Work Phone: Triglyceride [Mass/Vol] 188 mg/dL <199 [facility] Work Phone: Comment on above: The drugs N-Acetylcy steine and Metamizole may falsely depress this assay.Serum Triglycerides Reference Interval Normal <150 mg/dL Borderline high 150 - 199 mg/dL High 200 - 499 mg/dL Very High > or = 500 mg/dL WBC (Bld) [#/Vol] 4.8 10*3/uL 4.4-11.0 [facility] Work Phone: Blood erythrocytes count (nu mber/volume)on 08-02-2022 RBC (Bld) [#/Vol] 2.91 10*6/uL 4.2-5.4 [facility] Work Phone: Blood hemoglobin measurement (mass/volume)on 08-02-2022 Hemoglobin (Bld) [Mass/Vol] 8.6 g/dL 12.0-15.0 [facility] Work Phone: Blood platelet mean volumeon 08-02-2022 Platelet mean volume (Bld) [Entitic vol] 9.1 fL 6.2-12.0 [facility] Work Phone: Determination of erythrocyte mean corpuscular volume (MCV)on 08-02-2022 MCV (RBC) [Entitic vol] 102.4 fL 81-99 [facility] Work Phone: Hematocrit Auto (Bld) [Volum e fraction]on 08-02-2022 Hematocrit (Bld) [Volume fraction] 29.8 % 37-47 [facility] Work Phone: Iron measurement (mass/mass) on 08-02-2022 Iron (Unsp spec) [Mass/Mass] 43 ug/dL 50-170 [facility] Work Phone: Laboratory - Chemistry and C hemistry - challengeon 08-02-2022 Albumin [Mass/Vol] 3.3 g/dL 2.9-4.4 [facility] Work Phone: CO2 [Moles/Vol] 39.0 mmol/L 21.0-32.0 [facility] Work Phone: Cobalamin (Vitamin B12) [Mass/Vol] 350 pg/mL 211-911 [facility] Work Phone: Urea nitrogen/Creatinine [Mass ratio] 26.8 mg/mg 10-20 [facility] Work Phone: Laboratory - Hematology and Cell countson 08-02-2022 Erythrocyte distribution width (RBC) [Entitic vol] 52.6 fL 35.1-43.9 [facility] Work Phone: Erythrocyte distribution width (RBC) [Ratio] 14.2 % 11.6-14.6 [facility] Work Phone: MCH (RBC) [Entitic mass] 29.6 pg 27.0-32.0 [facility] Work Phone: MCHC Auto (RBC) [Mass/Vol]on 08-02-2022 MCHC (RBC) [Mass/Vol] 28.9 g/dL 32-36 [facility] Work Phone: No Panel Informationon 08-02 Addendum Document Comment . [facility] Work Phone: Comment on above: The SPE pattern appe ars unremarkable. Evidence ofmonoclonal protein is not apparent.Performed at: [address] [id number] Director: Mark Woo PhD, Phone: [phone] [id number] 0.3 g/dL 0.0-0.4 [facility] Work Phone: [id number] 0.9 g/dL 0.4-1.0 [facility] Work Phone: Estimated GFR (MDRD) Amer 104 mL/min >60 [facility] Work Phone: Comment on above: GFR Calc Estimated GFR (MDRD) Non-Af Amer 86 mL/min >60 [facility] Work Phone: Comment on above: Non- GFR Calc Gamma Globulins 0.9 g/dL 0.4-1.8 [facility] Work Phone: Thyroid Stimulating Hormone (TSH) 1.91 uIU/mL 0.358-3.74 [facility] Work Phone: Total Iron Binding Capacity 268 ug/dL 250-450 [facility] Work Phone: Platelets bldon 08-02-2022 Platelets (Bld) [#/Vol] 120 10*3/uL 150-450 [facility] Work Phone: Protein Fractions Elph [Inte rp]on 08-02-2022 Protein Fractions [Interp] Comment . [facility] Work Phone: Comment on above: Protein electrophore sis scan will follow via computer,mail, or coin collector delivery. Serum albumin to globulin ra amairani by protein electrophoresison 08-02-2022 Albumin/Globulin Elph [Mass ratio] 1.0 0.7-1.7 [facility] Work Phone: Serum globulin measurement ( mass/volume)on 08-02-2022 Globulin (S) [Mass/Vol] 3.2 g/dL 2.2-3.9 [facility] Work Phone: Serum or plasma beta globuli n measurement by electrophoresis (mass/volume)on 08-02-2022 Beta globulin Elph [Mass/Vol] 1.0 g/dL 0.7-1.3 [facility] Work Phone: Serum or plasma calcium celina urement (mass/volume)on 08-02-2022 Calcium [Mass/Vol] 9.0 mg/dL 8.5-10.1 [facility] Work Phone: Serum or plasma cholesterol in HDL measurement (mass/volume)on 08-02-2022 Cholesterol in HDL [Mass/Vol] 53 mg/dL >40 [facility] Work Phone: Comment on above: The drugs N-Acetylcy steine and Metamizole may falsely depress this assay. Reference Range HDL <40 mg/dL Low HDL Cholesterol HDL >or= 60 mg/dL High HDL Cholesterol Serum or plasma cholesterol in VLDL measurement (mass/volume)on 08-02-2022 Cholesterol in VLDL [Mass/Vol] 38 mg/dL 5-40 [facility] Work Phone: Serum or plasma creatinine m easurement (mass/volume)on 08-02-2022 Creatinine [Mass/Vol] 0.71 mg/dL 0.55-1.02 [facility] Work Phone: Comment on above: The validity of the calculated GFR & GFRAA in patients over 70 years has not been determined. Clinical correlation is essential. Serum or plasma iron saturat ion measurement (mass fraction)on 08-02-2022 Iron saturation [Mass fraction] 16.0 % 15.0-55.0 [facility] Work Phone: Serum or plasma low density lipoprotein (LDL) cholesterol measurement (mass/volume)on 08-02-2022 Cholesterol in LDL [Mass/Vol] 58 mg/dL 0-130 [facility] Work Phone: Serum or plasma urea nitroge n measurement (mass/volume)on 08-02-2022 Urea nitrogen [Mass/Vol] 19 mg/dL 7-18 [facility] Work Phone: Thin prep Papanicolaou smear with manual screeningon 08-02-2022 Thin prep Papanicolaou smear with manual screening 3 5-15 [facility] Work Phone: Thin prep Papanicolaou smear with manual screening See comment [facility] Work Phone: Comment on above: Result: Not Observed Total protein bloodon 2021 Protein [Mass/Vol] 6.5 g/dL 6.0-8.5 [facility] Work Phone: Whole blood hemoglobin A1c/t otal hemoglobin ratio (mass fraction)on 08-02-2022 HbA1c (Bld) [Mass fraction] 5.7 % 3.8-5.6 [facility] Work Phone: Comment on above: Normal < 5.7 % Predi abetic 5.7 - 6.4 % Diabetic >or= 6.5 % Please note range changes. LABORATORYOrdered By: Chelsy Kay on 07-27-2022 Blood Glucose Testing Reason Routine (07/27/22 9:16 AM) [facility] Work Phone: Glucose [Mass/Vol] 177 mg/dL Invalid Interpretation Code 82 - 115 mg/dL [facility] Work Phone: LABORATORYOrdered By: Caitie Roman [...] Comment on above: Result Comment: Note s [id number] FLUBV RNA ISA+probe Ql (Resp) Negative 8 (07/27/22 9:01 AM) Invalid Interpretation Code Negative Auto Viro/Sero SS Comment on above: Result Comment: Note s [id number] Hospitalized Yes (07/27/22 9:01 AM) Invalid Interpretation [...] Glucose Testing Reason Routine (07/26/22 10:22 PM) [facility] Work Phone: Glucose [Mass/Vol] 176 mg/dL Invalid Interpretation Code 82 - 115 mg/dL [facility] Work Phone: Blood Glucose Testing Reason Routine (07/26/22 5:08 PM) [facility] Work Phone: Glucose [Mass/Vol] 232 mg/dL Invalid Interpretation Code 82 - 115 mg/dL [facility] Work Phone: LABORATORYOrdered By: Marcelina Freeman on 07-25-2022 Blood Glucose Interventions Administered agent to decrease blood sugar (07/25/22 4:57 PM) [facility] Work Phone: Blood Glucose Interventions Administered agent to decrease blood sugar (07/25/22 12:59 PM) [facility] Work Phone: LABORATORYOrdered By: Luana Bilss on 07-24-2022 Blood Glucose Interventions Administered agent to decrease blood sugar (07/24/22 1:00 PM) [facility] Work Phone: LABORATORYOrdered By: Poli Torres [...] Ertapenem TATO [Susc] >100,000 cfu/ml Escherichia coli [facility] Work Phone: Ertapenem TATO [Susc]on 07-12 Escherichia coli Escherichia coli [facility] Work Phone: LABORATORYOrdered By: Dana Lucero [...] Interpretation Code 82 - 115 mg/dL [facility] Work Phone: LABORATORYOrdered By: Triston [...] S CNCOon 11-30-2021 CNCO Letter Text Normal [facility] LABORATORYOrdered By: Dori Frances on 09-15-2021 [...] Former smoker Tobacco Use Screening; Status:Complete; Done: [id number] Perform:Not Applicable;Ordered; For:SocHx: Former smoker; Ordered By:Jenniffer [...] mixing and drinking quickly. This product is smsc-aed-erquuov. Additionally take MiraLAX as needed for constipation. [...] ultrasound of the liver History of Present [id number] female spoken to over telephone referred for [...] History of Colonoscopy APR. 2013- DONE IN [place]- NORMAL History of Esophagogastroduodenoscop y APPROX- 2013- IN [place]- NORMAL History of Knee arthroscopy History of [...] identified Cx Nom (U) Presumptive E. coli [facility] Work Phone: Bacteria identified Cx Nom (U) Positive [facility] Work Phone: Vital Signs Date Time Vital Sign Value Performing Clinician Facility 10-31-2023 11:16-0500 Body height 165.1 cm Elida Rafaume BRICK STACKER-ENTRY LEVEL RECEPTIONIST Work Phone: [facility] 10-31-2023 11:16-0500 Body mass index (BMI) [Ratio] 26.79 kg/m2 Elida Blume BRICK STACKER-ENTRY LEVEL RECEPTIONIST Work Phone: [facility] 10-31-2023 11:16-0500 Body weight 73.03 kg Elida Blume BRICK STACKER-ENTRY LEVEL RECEPTIONIST Work Phone: [facility] 10-31-2023 11:16-0500 Diastolic blood pressure 61 mm[Hg] Elida Blume BRICK STACKER-ENTRY LEVEL RECEPTIONIST Work Phone: [facility] 10-31-2023 11:16-0500 Heart rate 84 /min Elida Blume BRICK STACKER-ENTRY LEVEL RECEPTIONIST Work Phone: [facility] 10-31-2023 11:16-0500 SaO2% (BldA) [Mass fraction] 97 % Elida Blume BRICK STACKER-ENTRY LEVEL RECEPTIONIST Work Phone: [facility] 10-31-2023 11:16-0500 Systolic blood pressure 94 mm[Hg] Elida Blume BRICK STACKER-ENTRY LEVEL RECEPTIONIST Work Phone: [facility] 10-17-2023 11:20-0500 Body height 165.1 cm Varsha Sotelo MD Work Phone: [facility] 10-17-2023 11:20-0500 Body mass index (BMI) [Ratio] 26.88 kg/m2 Varsha Sotelo MD Work Phone: [facility] 10-17-2023 11:20-0500 Body temperature 97.7 [degF] Varsha Sotelo MD Work Phone: [facility] 10-17-2023 11:20-0500 Body weight 73.26 kg Varsha Sotelo MD Work Phone: [facility] 10-17-2023 11:20-0500 Diastolic blood pressure 54 mm[Hg] Varsha Sotelo MD Work Phone: [facility] 10-17-2023 11:20-0500 Heart rate 74 /min Varsha Sotelo MD Work Phone: [facility] 10-17-2023 11:20-0500 Systolic blood pressure 94 mm[Hg] Varsha Sotelo MD Work Phone: [facility] 09-28-2023 09:24-0500 Body temperature 97.9 [degF] Vevlet Jerez DO Work Phone: [facility] 09-28-2023 09:24-0500 Diastolic blood pressure 70 mm[Hg] Velvet Landon-yler DO Work Phone: [facility] 09-28-2023 09:24-0500 Heart rate 91 /min Velvet Landon-yler DO Work Phone: [facility] 09-28-2023 09:24-0500 Respiratory rate 16 /min Velvet Landon-Seyler DO Work Phone: [facility] 09-28-2023 09:24-0500 SaO2% (BldA) [Mass fraction] 99 % Velvet Landon-Seyler DO Work Phone: [facility] 09-28-2023 09:24-0500 Systolic blood pressure 111 mm[Hg] Velvet Landon-Seyler DO Work Phone: [facility] 09-19-2023 16:37-0500 Body temperature 37.0 Velvet Landon-Seyler DO Work Phone: [facility] 09-19-2023 16:37-0500 SaO2% (BldA) [Mass fraction] 99 % Velvet Landon-Seyler DO Work Phone: [facility] 09-19-2023 14:04-0500 Body temperature 37.0 degrees Celsius [facility] Comment on above: Order Comment: While on baseline/ home l evel of oxygen Result Comment: NOTE : Patient Results are Not Corrected for Temperature Performed By: #### 6 00-7 #### BEVERLEY Poe ([id number]) [facility] ([facility]) [address] [place] [address] 09-19-2023 14:04-0500 SaO2% (BldA) [Mass fraction] 99 % [facility] Comment on above: Order Comment: While on baseline/ home l evel of oxygen Performed By: #### 6 00-7 #### BEVERLEY JU Poe ([id number]) [facility] ([facility]) [address] [place] [address] 09-15-2023 18:44-0400 Body height 165.1 cm Velvet Jerez DO Work Phone: [facility] 09-15-2023 18:44-0400 Body mass index (BMI) [Ratio] 27.46 kg/m2 Velvet Jerez DO Work Phone: [facility] 09-15-2023 18:44-0400 Body weight 74.84 kg Velvet Jerez DO Work Phone: [facility] 09-15-2023 16:54-0400 Diastolic blood pressure 60 mm[Hg] Dr. Jonathan Dillard Sr. Work Phone: [facility] 09-15-2023 16:54-0400 Heart rate 88 /min Dr. Jonathan Dillard Sr. Work Phone: [facility] 09-15-2023 16:54-0400 Inhaled oxygen flow rate 3 L/min Dr. Jonathan Dillard Sr. Work Phone: [facility] 09-15-2023 16:54-0400 Respiratory rate 18 /min Dr. Jonathan Dillard Sr. Work Phone: [facility] 09-15-2023 16:54-0400 SaO2% (BldA) [Mass fraction] 100 % Dr. Jonathan Dillard Sr. Work Phone: [facility] 09-15-2023 16:54-0400 Systolic blood pressure 115 mm[Hg] Dr. Jonathan Dillard Sr. Work Phone: [facility] 09-15-2023 16:30-0400 Body temperature 97.8 [degF] Dr. Jonathan Dillard Sr. Work Phone: [facility] 09-14-2023 22:45-0400 Body height 165.[address] Jonathan Dillard Sr. Work Phone: [facility] 09-14-2023 22:45-0400 Body mass index (BMI) [Ratio] 29 kg/m2 Dr. Jonathan Dillard Sr. Work Phone: [facility] 09-14-2023 22:45-0400 Body weight 79.[address] Jonathan Dillard Sr. Work Phone: [facility] 09-08-2023 10:18-0400 Body mass index (BMI) [Ratio] 27.6 kg/m2 Dr. Jonathan Dillard Sr. Work Phone: [facility] 09-08-2023 10:18-0400 Body temperature 97.7 [degF] Dr. Jonathan Dillard Sr. Work Phone: [facility] 09-08-2023 10:18-0400 Body weight 75.[address] Jonathan Dillard Sr. Work Phone: [facility] 09-08-2023 10:18-0400 Diastolic blood pressure 55 mm[Hg] Dr. Jonathan Dillard Sr. Work Phone: [facility] 09-08-2023 10:18-0400 Heart rate 97 /min Dr. Jonathan Dillard Sr. Work Phone: [facility] 09-08-2023 10:18-0400 Inhaled oxygen flow rate 1 L/min Dr. Jonathan Dillard Sr. Work Phone: [facility] 09-08-2023 10:18-0400 Respiratory rate 18 /min Dr. Jonathan Dillard Sr. Work Phone: [facility] 09-08-2023 10:18-0400 SaO2% (BldA) [Mass fraction] 95 % Dr. Jonathan Dillard Sr. Work Phone: [facility] 09-08-2023 10:18-0400 Systolic blood pressure 99 mm[Hg] Dr. Jonathan Dillard Sr. Work Phone: [facility] 08-15-2023 11:54-0400 Diastolic Blood Pressure Non-Invasive [address] MARK JEREZ MD [facility] 08-15-2023 11:54-0400 Heart rate 91 /min DR MARK JEREZ MD [facility] 08-15-2023 11:54-0400 Respiratory rate 23 /min DR MARK JEREZ MD [facility] 08-15-2023 11:54-0400 Systolic Blood Pressure Non-Invasive [address] MARK JEREZ MD [facility] 08-15-2023 11:41-0400 Diastolic Blood Pressure Non-Invasive [address] MARK JEREZ MD [facility] 08-15-2023 11:41-0400 Heart rate 98 /min DR MARK JEREZ MD [facility] 08-15-2023 11:41-0400 Respiratory rate 19 /min DR MARK JEREZ MD [facility] 08-15-2023 11:41-0400 Systolic Blood Pressure Non-Invasive [address] MARK JEREZ MD [facility] 08-15-2023 11:25-0400 Body temperature 97.52 [degF] DR MARK JEREZ MD [facility] 08-15-2023 11:25-0400 Diastolic Blood Pressure Non-Invasive [address] MARK JEREZ MD [facility] 08-15-2023 11:25-0400 Heart rate 97 /min DR MARK JEREZ MD [facility] 08-15-2023 11:25-0400 Respiratory rate 24 /min DR MARK JEREZ MD [facility] 08-15-2023 11:25-0400 Systolic Blood Pressure Non-Invasive [address] MARK JEREZ MD [facility] 08-15-2023 11:15-0400 Respiratory Rate - Anes 25 br/min DR MARK JEREZ MD [facility] 08-15-2023 11:10-0400 Respiratory Rate - Anes 26 br/min DR MARK JEREZ MD [facility] 08-15-2023 11:05-0400 Respiratory Rate - Anes 9 br/min DR MARK JEREZ MD [facility] 08-15-2023 10:290400 Body height [address] MARK JEREZ MD [facility] 08-15-2023 10:29-0400 Body weight [address] MARK JEREZ MD [facility] 08-15-2023 10:290400 Body weight 34.89 kg/m2 DR MARK JEREZ MD [facility] 08-15-2023 10:190400 Body height [address] MARK JEREZ MD [facility] 08-15-2023 10:190400 Body temperature 98.06 [degF] DR MARK JEREZ MD [facility] 08-15-2023 10:190400 Body weight [address] MARK JEREZ MD [facility] 08-15-2023 10:19-0400 Heart rate 87 /min DR MARK JEREZ MD [facility] 08-10-2023 03:47-0400 Diastolic blood pressure 62 mm[Hg] MD [facility] 08-10-2023 03:47-0400 Heart rate 89 /min [facility] 03:47-0400 Respiratory rate 18 /min [facility] 08-10-2023 03:47-0400 SaO2% (BldA) [Mass fraction] 95 % Jonathan [facility] 08-10-2023 03:47-0400 Systolic blood pressure 108 mm[Hg] Jonathan [facility] 08-09-2023 22:56-0400 Body height 165.1 cm Jonathan [facility] 08-09-2023 22:56-0400 Body mass index (BMI) [Ratio] 29.3 kg/m2 Jonathan [facility] 08-09-2023 22:56-0400 Body temperature 98.9 [degF] Jonathan [facility] 08-09-2023 22:56-0400 Body weight 80.1 kg Jonathan [facility] 08-09-2023 22:56-0400 Inhaled oxygen flow rate 2 L/min MD Castillo [facility] 07-14-2023 19:07-0400 Diastolic blood pressure 43 mm[Hg] SPORTS SPECIALIST-Andrea Carlisle SPORTS SPECIALIST Work Phone: [facility] 07-14-2023 19:07-0400 Heart rate 92 /min SPORTS SPECIALIST-Andrea Carlisle SPORTS SPECIALIST Work Phone: [facility] 07-14-2023 19:07-0400 Respiratory rate 17 /min SPORTS SPECIALIST-Andrea Carlisle SPORTS SPECIALIST Work Phone: [facility] 07-14-2023 19:07-0400 SaO2% (BldA) [Mass fraction] 98 % SPORTS SPECIALIST-C Barber Carlisle SPORTS SPECIALIST Work Phone: [facility] 07-14-2023 19:07-0400 Systolic blood pressure 104 mm[Hg] SPORTS SPECIALIST-C Barber Carlisle SPORTS SPECIALIST Work Phone: [facility] 07-14-2023 17:25-0400 Inhaled oxygen flow rate 1.5 L/min SPORTS SPECIALIST-C Barber Carlisle SPORTS SPECIALIST Work Phone: [facility] 07-14-2023 15:23-0400 Body mass index (BMI) [Ratio] 29.3 kg/m2 SPORTS SPECIALIST-C Barber Carlisle SPORTS SPECIALIST Work Phone: [facility] 07-14-2023 15:23-0400 Body weight 80 kg SPORTS SPECIALIST-C Barber Carlisle SPORTS SPECIALIST Work Phone: [facility] 07-14-2023 15:15-0400 Body height 165.1 cm SPORTS SPECIALIST-C Barber Carlisle SPORTS SPECIALIST Work Phone: [facility] 07-14-2023 15:15-0400 Body temperature 97.4 [degF] SPORTS SPECIALIST-C Barber Carlisle SPORTS SPECIALIST Work Phone: [facility] 05-04-2023 14:31-0400 Body height 165.1 cm SPORTS SPECIALIST-C Barber Carlisle SPORTS SPECIALIST Work Phone: [facility] 05-04-2023 14:31-0400 Body mass index (BMI) [Ratio] 30.1 kg/m2 SPORTS SPECIALIST-C Barber Carlisle SPORTS SPECIALIST Work Phone: [facility] 05-04-2023 14:31-0400 Body temperature 98.4 [degF] SPORTS SPECIALIST-C Barber Carlisle SPORTS SPECIALIST Work Phone: [facility] 05-04-2023 14:31-0400 Body weight 82.1 kg SPORTS SPECIALIST-C Barber Carlisle SPORTS SPECIALIST Work Phone: [facility] 05-04-2023 14:31-0400 Diastolic blood pressure 63 mm[Hg] SPORTS SPECIALIST-C Barber Carlisle SPORTS SPECIALIST Work Phone: [facility] 05-04-2023 14:31-0400 Heart rate 78 /min SPORTS SPECIALIST-C Barber Carlisle SPORTS SPECIALIST Work Phone: [facility] 05-04-2023 14:31-0400 Inhaled oxygen flow rate 1 L/min SPORTS SPECIALIST-C Barber Carlisle SPORTS SPECIALIST Work Phone: [facility] 05-04-2023 14:31-0400 Respiratory rate 15 /min SPORTS SPECIALIST-C Barber Carlisle SPORTS SPECIALIST Work Phone: [facility] 05-04-2023 14:31-0400 SaO2% (BldA) [Mass fraction] 96 % SPORTS SPECIALIST-C Barber Carlisle SPORTS SPECIALIST Work Phone: [facility] 05-04-2023 14:31-0400 Systolic blood pressure 103 mm[Hg] SPORTS SPECIALIST-C Barber Carlisle SPORTS SPECIALIST Work Phone: [facility] 04-19-2023 22:11-0400 Diastolic blood pressure 67 mm[Hg] SPORTS SPECIALIST-C Barber Carlisle SPORTS SPECIALIST Work Phone: [facility] 04-19-2023 22:11-0400 Respiratory rate 17 /min SPORTS SPECIALIST-C Barber Carlisle SPORTS SPECIALIST Work Phone: [facility] 04-19-2023 22:11-0400 SaO2% (BldA) [Mass fraction] 100 % SPORTS SPECIALIST-C Barber Carlisle SPORTS SPECIALIST Work Phone: [facility] 04-19-2023 22:11-0400 Systolic blood pressure 121 mm[Hg] SPORTS SPECIALIST-C Barber Carlisle SPORTS SPECIALIST Work Phone: [facility] 04-19-2023 20:00-0400 Body temperature 97.5 [degF] SPORTS SPECIALIST-C Barber Carlisle SPORTS SPECIALIST Work Phone: [facility] 04-19-2023 20:00-0400 Heart rate 88 /min SPORTS SPECIALIST-C Barber Carlisle SPORTS SPECIALIST Work Phone: [facility] 04-19-2023 20:00-0400 Inhaled oxygen flow rate 2 L/min SPORTS SPECIALIST-C Barber Carlisle SPORTS SPECIALIST Work Phone: [facility] 04-19-2023 16:41-0400 Body height 165.1 cm SPORTS SPECIALIST-C Barber Carlisle SPORTS SPECIALIST Work Phone: [facility] 04-19-2023 16:41-0400 Body mass index (BMI) [Ratio] 31.8 kg/m2 SPORTS SPECIALIST-C Barber Carlisle SPORTS SPECIALIST Work Phone: [facility] 04-19-2023 16:41-0400 Body weight 86.9 kg SPORTS SPECIALIST-C Barber Carlisle SPORTS SPECIALIST Work Phone: [facility] 04-04-2023 14:11-0400 Body temperature 97.4 [degF] SPORTS SPECIALIST-C Barber Carlisle SPORTS SPECIALIST Work Phone: [facility] 04-04-2023 14:11-0400 Diastolic blood pressure 66 mm[Hg] SPORTS SPECIALIST-C Barber Carlisle SPORTS SPECIALIST Work Phone: [facility] 04-04-2023 14:11-0400 Heart rate 76 /min SPORTS SPECIALIST-C Barber Carlisle SPORTS SPECIALIST Work Phone: [facility] 04-04-2023 14:11-0400 Respiratory rate 18 /min SPORTS SPECIALIST-C Barber Carlisle SPORTS SPECIALIST Work Phone: [facility] 04-04-2023 14:11-0400 SaO2% (BldA) [Mass fraction] 97 % SPORTS SPECIALIST-C Barber Carlisle SPORTS SPECIALIST Work Phone: [facility] 04-04-2023 14:11-0400 Systolic blood pressure 124 mm[Hg] SPORTS SPECIALIST-C Barber Carlisle SPORTS SPECIALIST Work Phone: [facility] 03-23-2023 14:35-0400 Body height 165.1 cm SPORTS SPECIALIST-C Barber Carlisle SPORTS SPECIALIST Work Phone: [facility] 03-23-2023 14:35-0400 Body temperature 98.2 [degF] SPORTS SPECIALIST-C Barber Carlisle SPORTS SPECIALIST Work Phone: [facility] 03-23-2023 14:35-0400 Diastolic blood pressure 65 mm[Hg] SPORTS SPECIALIST-C Barber Carlisle SPORTS SPECIALIST Work Phone: [facility] 03-23-2023 14:35-0400 Heart rate 80 /min SPORTS SPECIALIST-C Barber Solisson SPORTS SPECIALIST Work Phone: [facility] 03-23-2023 14:35-0400 Respiratory rate 16 /min SPORTS SPECIALIST-C Barber Solisson SPORTS SPECIALIST Work Phone: [facility] 03-23-2023 14:35-0400 SaO2% (BldA) [Mass fraction] 99 % SPORTS SPECIALIST-C Barber Carlisle SPORTS SPECIALIST Work Phone: [facility] 03-23-2023 14:35-0400 Systolic blood pressure 100 mm[Hg] SPORTS SPECIALIST-C Barber Solisson SPORTS SPECIALIST Work Phone: [facility] 03-09-2023 15:29-0400 Body temperature 98.2 [degF] SPORTS SPECIALIST-C Barber Solisson SPORTS SPECIALIST Work Phone: [facility] 03-09-2023 15:29-0400 Diastolic blood pressure 63 mm[Hg] SPORTS SPECIALIST-C Barber Carlisle SPORTS SPECIALIST Work Phone: [facility] 03-09-2023 15:29-0400 Heart rate 89 /min SPORTS SPECIALIST-C Barber Solisson SPORTS SPECIALIST Work Phone: [facility] 03-09-2023 15:29-0400 SaO2% (BldA) [Mass fraction] 96 % SPORTS SPECIALIST-C Barber Solisson SPORTS SPECIALIST Work Phone: [facility] 03-09-2023 15:29-0400 Systolic blood pressure 117 mm[Hg] SPORTS SPECIALIST-C Barber Solisson SPORTS SPECIALIST Work Phone: [facility] 03-09-2023 15:26-0400 Body height 165.1 cm SPORTS SPECIALIST-C Barber Solisson SPORTS SPECIALIST Work Phone: [facility] 02-25-2023 13:27-0400 Heart rate 89 /min SPORTS SPECIALIST-C Barber Carlisle SPORTS SPECIALIST Work Phone: [facility] 02-25-2023 13:27-0400 Respiratory rate 20 /min SPORTS SPECIALIST-C Barber Carlisle SPORTS SPECIALIST Work Phone: [facility] 02-25-2023 11:49-0400 Body temperature 97.3 [degF] SPORTS SPECIALIST-C Barber Carlisle SPORTS SPECIALIST Work Phone: [facility] 02-25-2023 11:49-0400 Diastolic blood pressure 44 mm[Hg] SPORTS SPECIALIST-C Barber Carlisle SPORTS SPECIALIST Work Phone: [facility] 02-25-2023 11:49-0400 Inhaled oxygen flow rate 1 L/min SPORTS SPECIALIST-C Barber Carlisle SPORTS SPECIALIST Work Phone: [facility] 02-25-2023 11:49-0400 SaO2% (BldA) [Mass fraction] 98 % SPORTS SPECIALIST-C Barber Carlisle SPORTS SPECIALIST Work Phone: [facility] 02-25-2023 11:49-0400 Systolic blood pressure 103 mm[Hg] SPORTS SPECIALIST-C Barber Carlisle SPORTS SPECIALIST Work Phone: [facility] 02-25-2023 06:00-0400 Body mass index (BMI) [Ratio] 30.1 kg/m2 SPORTS SPECIALIST-C Barber Carlisle SPORTS SPECIALIST Work Phone: [facility] 02-25-2023 06:00-0400 Body weight 82.2 kg SPORTS SPECIALIST-C Barber Carlisle SPORTS SPECIALIST Work Phone: [facility] 02-21-2023 13:46-0400 Body height 165.1 cm SPORTS SPECIALIST-C Barber Carlisle SPORTS SPECIALIST Work Phone: [facility] 02-21-2023 07:00-0400 Inhaled oxygen concentration 50 % SPORTS SPECIALIST-C Barber Carlisle SPORTS SPECIALIST Work Phone: [facility] 02-18-2023 00:46-0400 Body temperature 96 [degF] SPORTS SPECIALIST-C Barber Carlisle SPORTS SPECIALIST Work Phone: [facility] 02-18-2023 00:46-0400 Diastolic blood pressure 65 mm[Hg] SPORTS SPECIALIST-C Barber Carlisle SPORTS SPECIALIST Work Phone: [facility] 02-18-2023 00:46-0400 Heart rate 70 /min SPORTS SPECIALIST-C Barber Carlisle SPORTS SPECIALIST Work Phone: [facility] 02-18-2023 00:46-0400 Respiratory rate 18 /min SPORTS SPECIALIST-C Barber Carlisle SPORTS SPECIALIST Work Phone: [facility] 02-18-2023 00:46-0400 SaO2% (BldA) [Mass fraction] 100 % SPORTS SPECIALIST-C Barber Carlisle SPORTS SPECIALIST Work Phone: [facility] 02-18-2023 00:46-0400 Systolic blood pressure 103 mm[Hg] SPORTS SPECIALIST-C Barber Carlisle SPORTS SPECIALIST Work Phone: [facility] 02-17-2023 22:25-0400 Inhaled oxygen concentration 100 % SPORTS SPECIALIST-C Barber Carlisle SPORTS SPECIALIST Work Phone: [facility] 02-17-2023 22:17-0400 Body height 165.1 cm SPORTS SPECIALIST-C Barber Carlisle SPORTS SPECIALIST Work Phone: [facility] 02-17-2023 22:17-0400 Body mass index (BMI) [Ratio] 33.8 kg/m2 SPORTS SPECIALIST-C Barber Carlisle SPORTS SPECIALIST Work Phone: [facility] 02-17-2023 22:17-0400 Body weight 92.3 kg SPORTS SPECIALIST-C Barber Carlisle SPORTS SPECIALIST Work Phone: [facility] 01-11-2023 13:49-0500 Body mass index (BMI) [Ratio] 32.5 kg/m2 SPORTS SPECIALIST-C Barber Carlisle SPORTS SPECIALIST Work Phone: [facility] 01-11-2023 13:49-0500 Body temperature 98.5 [degF] SPORTS SPECIALIST-C Barber Carlisle SPORTS SPECIALIST Work Phone: [facility] 01-11-2023 13:49-0500 Body weight 88.45 kg SPORTS SPECIALIST-C Barber Carlisle SPORTS SPECIALIST Work Phone: [facility] 01-11-2023 13:49-0500 Diastolic blood pressure 71 mm[Hg] SPORTS SPECIALIST-C Barber Carlisle SPORTS SPECIALIST Work Phone: [facility] 01-11-2023 13:49-0500 Heart rate 82 /min SPORTS SPECIALIST-C Barber Carlisle SPORTS SPECIALIST Work Phone: [facility] 01-11-2023 13:49-0500 Respiratory rate 17 /min SPORTS SPECIALIST-C Barber Carlisle SPORTS SPECIALIST Work Phone: [facility] 01-11-2023 13:49-0500 SaO2% (BldA) [Mass fraction] 98 % SPORTS SPECIALIST-C Barber Carlisle SPORTS SPECIALIST Work Phone: [facility] 01-11-2023 13:49-0500 Systolic blood pressure 110 mm[Hg] SPORTS SPECIALIST-C Barber Carlisle SPORTS SPECIALIST Work Phone: [facility] 11-11-2022 10:49-0500 Body height 165 cm SPORTS SPECIALIST-C Barber Carlisle SPORTS SPECIALIST Work Phone: [facility] Work Phone: 11-11-2022 10:35-0500 Body mass index (BMI) [Ratio] 31.9 kg/m2 SPORTS SPECIALIST-C Barber Carlisle SPORTS SPECIALIST Work Phone: [facility] 11-11-2022 10:35-0500 Body temperature 98 [degF] SPORTS SPECIALIST-C Barber Carlisle SPORTS SPECIALIST Work Phone: [facility] 11-11-2022 10:35-0500 Body weight 87.08 kg SPORTS SPECIALIST-C Barber Carlisle SPORTS SPECIALIST Work Phone: [facility] 11-11-2022 10:35-0500 Diastolic blood pressure 70 mm[Hg] SPORTS SPECIALIST-C Barber Carlisle SPORTS SPECIALIST Work Phone: [facility] 11-11-2022 10:35-0500 Heart rate 82 /min SPORTS SPECIALIST-C Barber Carlisle SPORTS SPECIALIST Work Phone: [facility] 11-11-2022 10:35-0500 Respiratory rate 18 /min SPORTS SPECIALIST-C Barber Carlisle SPORTS SPECIALIST Work Phone: [facility] 11-11-2022 10:35-0500 SaO2% (BldA) [Mass fraction] 91 % SPORTS SPECIALIST-C Barber Lorethan SPORTS SPECIALIST Work Phone: [facility] 11-11-2022 10:35-0500 Systolic blood pressure 115 mm[Hg] SPORTS SPECIALIST-C Barber Carlisle SPORTS SPECIALIST Work Phone: [facility] 07-27-2022 09:29-0400 Heart rate 93 /min DR TRACE MATTHEWS MD [address] 07-27-2022 09:13-0400 Body temperature 96.8 [degF] DR TRACE MATTHEWS MD [address] [place] [address] 07-27-2022 09:13-0400 Diastolic Blood Pressure NBP [address] TRACE MATTHEWS MD [address] [place] [address] 07-27-2022 09:13-0400 Heart rate 99 /min DR TRACE MATTHEWS MD [address] 07-27-2022 09:13-0400 Mean blood pressure 83 mm[Hg] DR TRACE MATTHEWS MD [address] [place] [address] 07-27-2022 09:13-0400 Reason For Taking VItal Signs DR TRACE MATTHEWS MD [address] [place] [address] 07-27-2022 09:13-0400 Systolic Blood Pressure NBP [address] TRACE MATTHEWS MD [address] [place] [address] 07-27-2022 04:38-0400 Body temperature 97.7 [degF] DR TRACE MATTHEWS MD [address] [place] [address] 07-27-2022 04:38-0400 Diastolic Blood Pressure NBP [address] TRACE MATTHEWS MD [address] 07-27-2022 04:38-0400 Heart rate 79 /min DR TRACE MATTHEWS MD [address] [place] [address] 07-27-2022 04:38-0400 Mean blood pressure 75 mm[Hg] DR TRACE MATTHEWS MD [address] [place] [address] 07-27-2022 04:38-0400 Reason For Taking VItal Signs DR TRACE MATTHEWS MD [address] [place] [address] 07-27-2022 04:38-0400 Respiratory rate 16 /min DR TRACE MATTHEWS MD [address] [place] [address] 07-27-2022 04:38-0400 Systolic Blood Pressure NBP [address] TRACE MATTHEWS MD [address] [place] [address] 07-26-2022 21:08-0400 Body temperature 98.24 [degF] DR TRACE MATTHEWS MD [address] [place] [address] 07-26-2022 21:08-0400 Diastolic Blood Pressure NBP [address] TRACE MATTHEWS MD [address] [place] [address] 07-26-2022 21:08-0400 Heart rate 113 /min DR TRACE MATTHEWS MD [address] [place] [address] 07-26-2022 21:08-0400 Mean blood pressure 74 mm[Hg] DR TRACE MATTHEWS MD [address] [place] [address] 07-26-2022 21:08-0400 Reason For Taking VItal Signs DR TRACE MATTHEWS MD [address] [place] [address] 07-26-2022 21:08-0400 Respiratory rate 18 /min DR TRACE MATTHEWS MD [address] [place] [address] 07-26-2022 21:08-0400 Systolic Blood Pressure NBP [address] TRACE MATTHEWS MD [address] [place] [address] 07-26-2022 16:00-0400 Respiratory rate 16 /min DR TRACE MATTHEWS MD [address] [place] [address] 07-26-2022 09:18-0400 Heart rate 100 /min DR TRACE MATTHEWS MD [address] [place] [address] 07-26-2022 00:35-0400 Diastolic blood pressure 52 mm[Hg] DR TRACE MATTHEWS MD [address] [place] [address] 07-26-2022 00:35-0400 Mean blood pressure 71 mm[Hg] DR TRACE MATTHEWS MD [address] [place] [address] 07-26-2022 00:35-0400 Systolic blood pressure 108 mm[Hg] DR TRACE MATTHEWS MD [address] [place] [address] 07-25-2022 07:55-0400 Heart rate 86 /min DR TRACE MATTHEWS MD [address] [place] [address] 07-24-2022 23:40-0400 Diastolic blood pressure 57 mm[Hg] DR TRACE MATTHEWS MD [address] [place] [address] 07-24-2022 23:40-0400 Mean blood pressure 81 mm[Hg] DR TRACE MATTHEWS MD [address] [place] [address] 07-24-2022 23:40-0400 Systolic blood pressure 128 mm[Hg] DR TRACE MATTHEWS MD [address] [place] [address] 07-24-2022 20:26-0400 Diastolic blood pressure 54 mm[Hg] DR TRACE MATTHEWS MD [address] [place] [address] 07-24-2022 20:26-0400 Mean blood pressure 77 mm[Hg] DR TRACE MATTHEWS MD [address] [place] [address] 07-24-2022 20:26-0400 Systolic blood pressure 124 mm[Hg] DR TRACE MATTHEWS MD [address] [place] [address] 07-21-2022 13:01-0400 Body temperature 96.62 [degF] DR TRACE MATTHEWS MD [address] [place] [address] 07-15-2022 11:49-0400 Diastolic blood pressure 45 mm[Hg] DR TRACE MATTHEWS MD [address] [place] [address] 07-15-2022 11:49-0400 Mean blood pressure 59 mm[Hg] DR TRACE MATTHEWS MD [address] [place] [address] 07-15-2022 11:49-0400 Systolic blood pressure 106 mm[Hg] DR TRACE MATTHEWS MD [address] [place] [address] 07-15-2022 09:23-0400 Diastolic blood pressure 80 mm[Hg] DR TRACE MATTHEWS MD [address] [place] [address] 07-15-2022 09:23-0400 Mean blood pressure 111 mm[Hg] DR TRACE MATTHEWS MD [address] [place] [address] 07-15-2022 09:23-0400 Systolic blood pressure 157 mm[Hg] DR TRACE MATTHEWS MD [address] [place] [address] 07-15-2022 08:53-0400 Diastolic blood pressure 85 mm[Hg] DR TRACE MATTHEWS MD [address] [place] [address] 07-15-2022 08:53-0400 Mean blood pressure 113 mm[Hg] DR TRACE MATTHEWS MD [address] [place] [address] 07-15-2022 08:53-0400 Systolic blood pressure 153 mm[Hg] DR TRACE MATTHEWS MD [address] [place] [address] 07-15-2022 04:10-0400 SaO2% (BldA) [Mass fraction] 97.5 % DR TRACE MATTHEWS MD [facility] 07-13-2022 19:08-0400 SaO2% (BldA) [Mass fraction] 98.9 % DR TRACE MATTHEWS MD [facility] 07-13-2022 17:39-0400 SaO2% (BldA) [Mass fraction] 99.1 % DR TRACE MATTHEWS MD [facility] 07-13-2022 16:25-0400 Body temperature 97.84 [degF] DR TRACE MATTHEWS MD [address] [place] [address] 07-13-2022 16:20-0400 Body temperature 97.77 [degF] DR TRACE MATTHEWS MD [facility] 07-13-2022 16:15-0400 Body temperature 97.7 [degF] DR TRACE MATTHEWS MD [facility] 07-13-2022 11:30-0400 Body height [address] TRACE MATTHEWS MD [address] [place] [address] 07-13-2022 11:30-0400 Body weight 98.[address] TRACE MATTHEWS MD [facility] 07-13-2022 11:30-0400 Body weight 36.25 kg/m2 DR TRACE MATTHEWS MD [facility] 07-11-2022 17:05-0400 Heart rate 97 /min DR TRACE MATTHEWS MD [facility] 07-11-2022 14:31-0400 Heart rate 91 /min DR TRACE MATTHEWS MD [facility] 07-11-2022 11:20-0400 Body weight 98.[address] TRACE MATTHEWS MD [facility] 07-11-2022 11:20-0400 Heart rate 92 /min DR TRACE MATTHEWS MD [facility] 07-11-2022 10:00-0400 Diastolic blood pressure 76 mm[Hg] MARIANA RAMOS MD [facility] 07-11-2022 10:00-0400 Heart rate 89 /min MARIANA RAMOS MD [facility] 07-11-2022 10:00-0400 Mean blood pressure 97 mm[Hg] MARIANA RAMOS MD [facility] 07-11-2022 10:00-0400 Systolic blood pressure 139 mm[Hg] MARIANA RAMOS MD [facility] 07-11-2022 08:30-0400 Diastolic blood pressure 74 mm[Hg] MARIANA RAMOS MD [facility] 07-11-2022 08:30-0400 Heart rate 92 /min MARIANA RAMOS MD [facility] 07-11-2022 08:30-0400 Respiratory rate 16 /min MARIANA RAMOS MD [facility] 07-11-2022 08:30-0400 Systolic blood pressure 147 mm[Hg] MARIANA RAMOS MD [facility] 07-11-2022 07:34-0400 Body temperature 98.42 [degF] MARIANA RAMOS MD [facility] 07-11-2022 07:34-0400 Diastolic blood pressure 86 mm[Hg] MARIANA RAMOS MD [facility] 07-11-2022 07:34-0400 Heart rate 92 /min MARIANA RAMOS MD [facility] 07-11-2022 07:34-0400 Mean blood pressure 110 mm[Hg] MARIANA RAMOS MD [facility] 07-11-2022 07:34-0400 Respiratory rate 18 /min MARIANA RAMOS MD [facility] 07-11-2022 07:34-0400 Systolic blood pressure 158 mm[Hg] MARIANA RAMOS MD [facility] 12-04-2021 13:19-0500 Diastolic blood pressure 79 mm[Hg] LEONA RIOS MD [facility] 12-04-2021 13:19-0500 Heart rate 101 /min LEONA RIOS MD [facility] 12-04-2021 13:19-0500 Reason For Taking VItal Signs LEONA RIOS MD [facility] 12-04-2021 13:19-0500 Respiratory rate 18 /min LEONA RIOS MD [facility] 12-04-2021 13:19-0500 Systolic blood pressure 140 mm[Hg] LEONA RIOS MD [facility] 12-04-2021 11:12-0500 Diastolic blood pressure 76 mm[Hg] LEONA RIOS MD [facility] 12-04-2021 11:12-0500 Heart rate 106 /min LEONA RIOS MD [facility] 12-04-2021 11:12-0500 Reason For Taking VItal Signs LEONA RIOS MD [facility] 12-04-2021 11:12-0500 Respiratory rate 18 /min LEONA RIOS MD [facility] 12-04-2021 11:12-0500 Systolic blood pressure 139 mm[Hg] LEONA RIOS MD [facility] 12-04-2021 08:20-0500 Body temperature 98.24 [degF] LEONA RIOS MD [facility] 12-04-2021 08:20-0500 Diastolic blood pressure 79 mm[Hg] LEONA RIOS MD [facility] 12-04-2021 08:20-0500 Heart rate 98 /min LEONA RIOS MD [facility] 12-04-2021 08:20-0500 Respiratory rate 16 /min LEONA RIOS MD [facility] 12-04-2021 08:20-0500 Systolic blood pressure 145 mm[Hg] LEONA RIOS MD [facility] 09-15-2021 20:35-0400 Diastolic blood pressure 80 mm[Hg] JANKI ADAMS MD [facility] 09-15-2021 20:35-0400 Heart rate 100 /min JANKI ADAMS MD [facility] 09-15-2021 20:35-0400 Mean blood pressure 103 mm[Hg] JANKI ADAMS MD [facility] 09-15-2021 20:35-0400 Respiratory rate 22 /min JANKI ADAMS MD [facility] 09-15-2021 20:35-0400 Systolic blood pressure 148 mm[Hg] JANKI ADAMS MD [facility] 09-15-2021 19:24-0400 SaO2% (BldA) [Mass fraction] 99 % JANKI ADAMS MD [facility] 09-15-2021 18:26-0400 Body temperature 99.14 [degF] JANKI ADAMS MD [facility] 09-15-2021 18:26-0400 Body weight 96 kg JANKI ADAMS MD [facility] 09-15-2021 18:26-0400 Diastolic blood pressure 88 mm[Hg] JANKI ADAMS MD [facility] 09-15-2021 18:26-0400 Heart rate 107 /min JANKI ADAMS MD [facility] 09-15-2021 18:26-0400 Respiratory rate 20 /min JANKI ADAMS MD [facility] 09-15-2021 18:26-0400 Systolic blood pressure 156 mm[Hg] JANKI ADAMS MD [facility] Encounters Encounter Date Encounter Type Care Provider Facility Start: 09-26-2025 End: 09-26-2025 ambulatory [facility] Facility:[facility] Start: 09-25-2025 ambulatory Jonathan Gilma Jewell ty:[facility] Start: 09-18-2025 ambulatory Jonathan Gilma Hinds Facili ty:[facility] Start: 09-11-2025 ambulatory Jonathan Gilma Hinds Facili ty:[facility] Start: 09-10-2025 End: 09-10-2025 Emergency department patient visit Royce Vigil Facility:[facility] Start: 09-09-2025 ambulatory Jonathan Gilma ELMORE Facili ty:[facility] Start: 09-06-2025 ambulatory Jonathan Gilma ELMORE Facili ty:[facility] Start: 09-04-2025 ambulatory Jonathan Gilma ELMORE Facili ty:[facility] Start: 11-01-2023 Patient encounter status Marlon little Dionna CHUENTRY LEVEL RECEPTIONIST Work Phone: [facility] Work Phone: Start: 10-31-2023 End: 10-31-2023 [facility] Start: 10-31-2023 Evaluation and manag ement of inpatient VARSHA SOTELO [facility] Start: 10-31-2023 End: 10-31-2023 Office outpatient visit 25 minutes Elida CHUENTRY LEVEL RECEPTIONIST Work Phone: [facility] Comment on above: Preop cardiovascular exam (Primary Dx); Chronic systolic heart failure (CMS/HCC) Start: 10-31-2023 End: 10-31-2023 Patient encounter status Elida L Dionna JO-ENTRY LEVEL RECEPTIONIST Work Phone: [facility] Work Phone: Start: 10-31-2023 End: 10-31-2023 ambulatory ELIDA VILLAREAL [facility] Start: 10-28-2023 End: 11-02-2023 ambulatory RITU HARRELL [facility] Start: 10-28-2023 End: 10-28-2023 ambulatory BARBER MORALES [facility] Start: 10-28-2023 End: 10-28-2023 Encounter for other preprocedural examination BARBER MORALES [facility] Start: 10-28-2023 End: 10-28-2023 Admission to establishment [facility] Work Phone: Start: 10-28-2023 End: 10-28-2023 Subsequent hospital visit by physician Marnie [id number] Cr [id number] Holter/Ecg Resource [facility] Comment on above: Encounter for preadm ission testing Start: 10-20-2023 End: 10-20-2023 ambulatory BARBER MORALES [facility] Start: 10-17-2023 End: 10-17-2023 [facility] Start: 10-17-2023 End: 10-17-2023 Office outpatient visit 40 minutes Varsha Sotelo MD Work Phone: [facility] Comment on above: Colovaginal fistula (Primary Dx) Start: 10-11-2023 End: 10-11-[address] Jonathan Dillard Sr. Work Phone: [facility] Work Phone: Start: 10-11-2023 End: 10-11-[address] Jonathan Dillard Sr. Work Phone: [facility] Work Phone: Start: 10-11-[address] Jonathna acevedo Sr. Work Phone: [facility] Start: 10-04-[address] Jonathan acevedo Sr. Work Phone: [facility] Start: 10-03-[address] Jonathan acevedo Sr. Work Phone: [facility] Start: 09-15-2023 End: 09-28-2023 Encounter for preprocedural cardiovascular examination VARSHA SOTELO [facility] Start: 09-15-2023 End: 09-28-2023 Evaluation and management of inpatient Velvet Jerez DO Work Phone: [facility] Start: 09-15-2023 End: 09-28-2023 Patient encounter status Velvet Jerez DO Work Phone: [facility] Start: 09-15-2023 Non-patient / Non-visit Dr. Kalen Quintero. Work Phone: [facility] Start: 09-15-2023 Non-patient / Non-visit Dr. Kalen Hinds Work Phone: [facility] Work Phone: Start: 09-14-2023 End: 09-15-2023 Emergency department patient visit Dr. Jonathan Dillard Sr. Work Phone: [facility] Work Phone: Start: 09-13-2023 End: 09-13-[address] Jonathan Dillard SrChe Work Phone: [facility] Work Phone: Start: 09-13-2023 End: 09-13-[address] Jonathan Dillard Sr. Work Phone: [facility] Start: 09-13-[address] Jonathan acevedo Sr. Work Phone: [facility] Start: 09-09-2023 End: 09-09-[address] Jonathan Dillard Sr. Work Phone: [facility]Labor[facility] Specimen Work Phone: Start: 09-08-[address] Jonathan Dillard Sr. Work Phone: [facility] Start: 09-08-2023 End: 09-08-[address] Jonathan Dillard Sr. Work Phone: [facility] Work Phone: Start: 08-31-2023 End: 08-31-2023 ambulatory [facility] Work Phone: Start: 08-31-2023 End: 08-31-2023 Departed Referred [facility] Start: 08-31-2023 Registered Referred MD Jonathan ELMORE [facility] Start: 08-29-2023 End: 08-30-[address] OSEI WOODWARD MD Facility:A Start: 08-29-2023 End: 08-29-[address] OSEI WOODWARD MD [facility] Start: 08-17-2023 End: 08-18-[address] MARK JEREZ MD Facility:[facility] Start: 08-17-2023 End: 08-17-[address] MARK JEREZ MD [facility] Start: 08-16-2023 End: 08-16-2023 ambulatory MD Jonathan Dillard [facility] Work Phone: Start: 08-16-2023 End: 08-16-2023 Departed Referred MD Jonathan ELMORE [facility] Start: 08-15-[address] MARK LOPEZ MD Facility:B Start: 08-15-2023 End: 08-16-[address] MARK JEREZ MD Facility:[facility] Start: 08-15-2023 End: 08-15-[address] MARK JEREZ MD [facility] Start: 08-09-2023 End: 08-10-2023 Emergency department patient visit MD Jonathan ELMORE [facility] Work Phone: Start: 07-14-2023 End: 07-14-2023 Emergency department patient visit SPORTS SPECIALIST-C Barber Carlisle SPORTS SPECIALIST Work Phone: [facility] Work Phone: Start: 06-28-2023 End: 06-28-2023 ambulatory MD Jonathan Dillard [facility] Work Phone: Start: 06-28-2023 End: 06-28-2023 Departed Referred MD Jonathan ELMORE [facility] Start: 06-28-2023 Registered Referred SPORTS SPECIALIST-C Flora Carlisle SPORTS SPECIALIST Work Phone: [facility] Start: 06-13-2023 End: 06-13-2023 ambulatory SPORTS SPECIALIST-C Barber Carlisle SPORTS SPECIALIST Work Phone: [facility] Work Phone: Start: 06-13-2023 End: 06-13-2023 Departed Referred SPORTS SPECIALIST-C Barber Carlisle SPORTS SPECIALIST Work Phone: [facility] Start: 05-04-2023 End: 05-04-2023 Patient encounter procedure SPORTS SPECIALIST-C Barber Carlisle SPORTS SPECIALIST Work Phone: [facility] Work Phone: Start: 05-04-2023 Registered Recurring SPORTS SPECIALIST-C Conor Carlisle SPORTS SPECIALIST Work Phone: [facility] Start: 04-19-2023 End: 04-19-2023 Emergency department patient visit SPORTS SPECIALIST-C Barber Carlisle SPORTS SPECIALIST Work Phone: [facility] Start: 04-12-2023 End: 04-12-2023 ambulatory SPORTS SPECIALIST-C Barber Carlisle SPORTS SPECIALIST Work Phone: [facility] Work Phone: Start: 04-12-2023 End: 04-12-2023 Departed Referred SPORTS SPECIALIST-C Barber Carlisle SPORTS SPECIALIST Work Phone: [facility] Start: 04-04-2023 End: 04-04-2023 Patient encounter procedure SPORTS SPECIALIST-C Barber Carlisle SPORTS SPECIALIST Work Phone: [facility] Start: 04-04-2023 End: 04-04-2023 Patient encounter procedure SPORTS SPECIALIST-C Barber Carlisle SPORTS SPECIALIST Work Phone: [facility] Start: 03-28-2023 End: 03-28-2023 ambulatory SPORTS SPECIALIST-C Barber Carlisle SPORTS SPECIALIST Work Phone: [facility] Work Phone: Start: 03-28-2023 End: 03-28-2023 Departed Referred SPORTS SPECIALIST-C Barber Carlisle SPORTS SPECIALIST Work Phone: [facility] Start: 03-28-2023 Registered Referred SPORTS SPECIALIST-C Flora Carlisle SPORTS SPECIALIST Work Phone: [facility] Start: 03-23-2023 End: 03-23-2023 Patient encounter procedure SPORTS SPECIALIST-C Barber Carlisle SPORTS SPECIALIST Work Phone: [facility] Start: 03-18-2023 End: 03-18-2023 ambulatory SPORTS SPECIALIST-C Barber Carlisle SPORTS SPECIALIST Work Phone: [facility] Work Phone: Start: 03-18-2023 End: 03-18-2023 Patient encounter procedure SPORTS SPECIALIST-C Barber Carlisle SPORTS SPECIALIST Work Phone: [facility] Start: 03-09-2023 Registered Recurring SPORTS SPECIALIST-C Conor Carlisle SPORTS SPECIALIST Work Phone: [facility] Start: 03-09-2023 End: 03-09-2023 Patient encounter procedure SPORTS SPECIALIST-C Barber Carlisle SPORTS SPECIALIST Work Phone: [facility] Start: 03-08-2023 Registered Referred SPORTS SPECIALIST-C Flora Carlisle SPORTS SPECIALIST Work Phone: [facility] Start: 03-04-2023 Registered Referred SPORTS SPECIALIST-C Flora Carlisle SPORTS SPECIALIST Work Phone: [facility] Start: 02-28-2023 End: 02-28-2023 ambulatory SPORTS SPECIALIST-C Barber Carlisle SPORTS SPECIALIST Work Phone: [facility] Work Phone: Start: 02-28-2023 End: 02-28-2023 Departed Referred SPORTS SPECIALIST-C Barber Carlisle SPORTS SPECIALIST Work Phone: [facility] Start: 02-25-2023 Non-patient / Non-visit SPORTS SPECIALIST-C Deepika Carlisle SPORTS SPECIALIST Work Phone: [facility] Start: 02-24-2023 Non-patient / Non-visit SPORTS SPECIALIST-C L asif Solisson SPORTS SPECIALIST Work Phone: [facility] Start: 02-23-2023 Non-patient / Non-visit SPORTS SPECIALIST-C L asif Solisson SPORTS SPECIALIST Work Phone: [facility] Start: 02-23-2023 Non-patient / Non-visit SPORTS SPECIALIST-C L asif Solisson SPORTS SPECIALIST Work Phone: [facility] Start: 02-22-2023 Non-patient / Non-visit SPORTS SPECIALIST-C L asif Solisson SPORTS SPECIALIST Work Phone: [facility] Start: 02-22-2023 Non-patient / Non-visit SPORTS SPECIALIST-C L indalivia Lorson SPORTS SPECIALIST Work Phone: [facility] Start: 02-21-2023 Non-patient / Non-visit SPORTS SPECIALIST-C L asif Solisson SPORTS SPECIALIST Work Phone: [facility] Start: 02-21-2023 Non-patient / Non-visit SPORTS SPECIALIST-C L indalivia Solisson SPORTS SPECIALIST Work Phone: [facility] Start: 02-20-2023 Non-patient / Non-visit SPORTS SPECIALIST-C L indsey Lorson SPORTS SPECIALIST Work Phone: [facility] Start: 02-20-2023 Non-patient / Non-visit SPORTS SPECIALIST-C L indalivia Lorson SPORTS SPECIALIST Work Phone: [facility] Start: 02-20-2023 Non-patient / Non-visit SPORTS SPECIALIST-C L indsey Lorson SPORTS SPECIALIST Work Phone: [facility] Start: 02-19-2023 Non-patient / Non-visit SPORTS SPECIALIST-C L asif Solisson SPORTS SPECIALIST Work Phone: [facility] Start: 02-19-2023 Non-patient / Non-visit SPORTS SPECIALIST-C L asif Solisson SPORTS SPECIALIST Work Phone: [facility] Start: 02-18-2023 Non-patient / Non-visit SPORTS SPECIALIST-C L asif Solisson SPORTS SPECIALIST Work Phone: [facility] Start: 02-18-2023 Non-patient / Non-visit SPORTS SPECIALIST-C L asif Solisson SPORTS SPECIALIST Work Phone: [facility] Start: 02-18-2023 Non-patient / Non-visit SPORTS SPECIALIST-C L indalivia Lorson SPORTS SPECIALIST Work Phone: [facility] Start: 02-18-2023 End: 02-25-2023 Evaluation and management of inpatient SPORTS SPECIALIST-C Barber Carlisle SPORTS SPECIALIST Work Phone: [facility] Start: 02-07-2023 End: 02-07-2023 ambulatory SPORTS SPECIALIST-C Barber Carlisle SPORTS SPECIALIST Work Phone: [facility] Work Phone: Start: 02-07-2023 End: 02-07-2023 Departed Referred SPORTS SPECIALIST-C Barber Carlisle SPORTS SPECIALIST Work Phone: [facility] Start: 02-07-2023 Registered Referred SPORTS SPECIALIST-C Flora Carlisle SPORTS SPECIALIST Work Phone: [facility] Start: 01-11-2023 End: 01-11-2023 Patient encounter procedure SPORTS SPECIALIST-C Barber Carlisle SPORTS SPECIALIST Work Phone: [facility] Start: 01-11-2023 Registered Recurring SPORTS SPECIALIST-C Conor Carlisle SPORTS SPECIALIST Work Phone: [facility] Start: 11-11-2022 End: 11-11-2022 Patient encounter procedure SPORTS SPECIALIST-C Barber Carlisle SPORTS SPECIALIST Work Phone: [facility] Start: 11-01-2022 End: 11-01-2022 ambulatory SPORTS SPECIALIST-C Barber Carlisle SPORTS SPECIALIST Work Phone: [facility] Work Phone: Start: 11-01-2022 End: 11-01-2022 Departed Referred SPORTS SPECIALIST-C Barber Carlisle SPORTS SPECIALIST Work Phone: [facility] Start: 11-01-2022 Registered Referred SPORTS SPECIALIST-C Flora Carlisle SPORTS SPECIALIST Work Phone: [facility] Start: 10-26-2022 End: 10-27-2022 ambulatory TRACE MATTHEWS MD Facility:B Start: 10-26-2022 End: 10-26-[address] TRACE MATTHEWS MD [facility] Start: 10-05-2022 End: 10-05-2022 Patient encounter procedure RENETTA ASTORGA BRICK STACKER-ENTRY LEVEL RECEPTIONIST [facility] Start: 10-05-2022 End: 10-06-2022 ambulatory SPORTS SPECIALIST-C Barber Carlisle SPORTS SPECIALIST Work Phone: [facility] Work Phone: Start: 10-05-2022 End: 10-05-2022 Departed Referred SPORTS SPECIALIST-C Barber Carlisle SPORTS SPECIALIST Work Phone: [facility] Start: 10-05-2022 Registered Referred [facility] Start: 09-29-2022 End: 09-29-2022 ambulatory SPORTS SPECIALIST-C Barber Carlisle SPORTS SPECIALIST Work Phone: [facility] Work Phone: Start: 09-29-2022 End: 09-29-2022 Departed Referred SPORTS SPECIALIST-C Barber Carlisle SPORTS SPECIALIST Work Phone: [facility] Start: 09-29-2022 Registered Referred [facility] Start: 09-09-2022 End: 09-09-2022 Patient encounter procedure RENETTA ASTORGA [facility] STACKER[facility] Start: 09-08-2022 End: 09-08-2022 ambulatory [facility] Work Phone: Start: 09-08-2022 End: 09-08-2022 Departed Referred [facility] Start: 09-08-2022 Registered Referred [facility] Start: 09-01-2022 End: 09-01-2022 ambulatory [facility] Work Phone: Start: 09-01-2022 End: 09-01-2022 Departed Referred [facility] Start: 09-01-2022 Registered Referred [facility] Start: 08-26-2022 End: 08-26-2022 ambulatory [facility] Work Phone: Start: 08-26-2022 End: 08-26-2022 Departed Referred [facility] Start: 08-12-2022 End: 08-12-[address] TRACE MATTHEWS MD [facility] Start: 08-10-2022 End: 08-10-2022 Admission to same day surgery center BARBER CARLISLE BRICK STACKER-ENTRY LEVEL RECEPTIONIST [facility] Start: 08-02-2022 Registered Referred [facility] Start: 07-14-2022 End: 07-14-2022 Admission to same day surgery center ARYAN VAZ BRICK STACKER-ENTRY LEVEL RECEPTIONIST [facility] Start: 07-11-2022 End: 07-27-2022 Evaluation and management of inpatient DR TRACE MATTHEWS MD [facility] Start: 07-11-2022 End: 07-11-2022 Emergency department patient visit MARIANA RAMOS MD [facility] Start: 12-04-2021 End: 12-04-2021 Emergency department patient visit LEONA RIOS MD [facility] Start: 09-15-2021 End: 09-15-2021 Emergency department patient visit JANKI ADAMS MD [facility] Start: 09-15-2021 End: 09-15-2021 Patient encounter procedure BARBER CARLISLE BRICK STACKER-ENTRY LEVEL RECEPTIONIST [facility] Start: 08-15-2017 Ambulatory Ellis Conrad [...] 09-28-2023 Sars-cov-2 detection by dna/rna Nancy Treviño BRICK STACKER-[facility] Work Phone: Start: 09-28-2023 Blood [...] 09-27-2023 Sars-cov-2 detection by dna/rna Nancy Treviño BRICK STACKER-[facility] Work Phone: Start: 09-27-2023 CBC [...] MD Work Phone: Start: 09-22-2023 CASE REQUEST PHARMACEUTICAL BOTANIST BARBER CARLISLE Start: 09-22-2023 Glucose [Mass/volume] in [...] Glucose quantitative blood xcpt reagent strip Varsha Soteol MD Work Phone: Start: 09-19-2023 Us abdominal [...] of abdomen and pelvis with intravenous contrast SPORTS SPECIALIST-C Barber Carlisle SPORTS SPECIALIST Work Phone: Start: 04-19-2023 Computed tomography of abdomen and pelvis with intravenous contrast SPORTS SPECIALIST-C Barber Irmaethan SPORTS SPECIALIST Work Phone: Start: 04-12-2023 Urine culture SPORTS SPECIALIST-C Barber Carlisle SPORTS SPECIALIST Work Phone: Start: 03-18-2023 Bilateral mammography SPORTS SPECIALIST-C Barber Carlisle SPORTS SPECIALIST Work Phone: Start: 03-18-2023 Ultrasonography of breast SPORTS SPECIALIST-C Barber Solisethan SPORTS SPECIALIST Work Phone: Start: 03-18-2023 CT of soft tissues of neck with contrast SPORTS SPECIALIST-C Barber Orestes SPORTS SPECIALIST Work Phone: Start: 02-20-2023 Plain chest X-ray SPORTS SPECIALIST-C Barber Carlisle SPORTS SPECIALIST Work Phone: Start: 02-19-2023 Plain chest X-ray SPORTS SPECIALIST-C Barber Carlisle SPORTS SPECIALIST Work Phone: Start: 02-18-2023 Ultrasonography of thorax SPORTS SPECIALIST-C Barber Carlisle SPORTS SPECIALIST Work Phone: Start: 02-18-2023 CT of chest without contrast SPORTS SPECIALIST-C Carlton Carlisle SPORTS SPECIALIST Work Phone: Start: 02-17-2023 CT of head without contrast SPORTS SPECIALIST-C Barber Carlisle SPORTS SPECIALIST Work Phone: Start: 02-17-2023 Plain chest X-ray SPORTS SPECIALIST-C Barber Carlisle SPORTS SPECIALIST Work Phone: Start: 07-13-2022 Excision of cervical intervertebral disc BARBER CARLISLE BRICK STACKER-ENTRY LEVEL RECEPTIONIST Comment on above: ACDF Appendectomy Kandi Sharma Appendectomy BARBER ORESTES BRICK STACKER-ENTRY LEVEL RECEPTIONIST Comment on above: left water taken off Arthroscopic knee operation BARBER CARLISLE BRICK STACKER-ENTRY LEVEL RECEPTIONIST Comment on above: right Arthroscopy of knee Kandi rai Bacteria identified in Blood by Culture SPORTS SPECIALIST-C Barber Orestes SPORTS SPECIALIST Work Phone: Cardiac catheter (physical object) BARBER SOLISETHAN BRICK STACKER-ENTRY LEVEL RECEPTIONIST Comment on above: years ago Cardiac catheterization Marilyn Sharma Cataract surgery Kandi Castorena er Cholecystectomy Kandi Francis r Cholecystectomy BARBER ALLA ON BRICK STACKER-ENTRY LEVEL RECEPTIONIST Clostridium difficile detection SPORTS SPECIALIST-C Barber Carlisle SPORTS SPECIALIST Work Phone: Colonoscopy Kandi Sharma Colonoscopy BARBER ORESTES BRICK STACKER-ENTRY LEVEL RECEPTIONIST Esophagogastroduodenoscopy E gerson Sharma Esophagogastroduodenoscopy Deepika CARLISLE BRICK STACKER-ENTRY LEVEL RECEPTIONIST Ligation of fallopian tube E gerson Sharma Ligation of fallopian tube Deepika CARLISLE BRICK STACKER-ENTRY LEVEL RECEPTIONIST Lumpectomy of breast Kandi dorantes Lumpectomy of breast BARBER CARLISLE BRICK STACKER-ENTRY LEVEL RECEPTIONIST Comment on above: left None (qualifier value) FLORA CARLISLE BRICK STACKER-ENTRY LEVEL RECEPTIONIST Phacoemulsification of cataract with intraocular lens implantation BARBER CARLISLE BRICK STACKER-ENTRY LEVEL RECEPTIONIST Comment on above: both eyes Urine culture Urine culture SPORTS SPECIALIST-C Barber Carlisle SPORTS SPECIALIST Work Phone: Urine culture SPORTS SPECIALIST-C Barber Solisethan SPORTS SPECIALIST Work Phone: Viral antigen assay SPORTS SPECIALIST-C Bhavna godfrey Solisethan SPORTS SPECIALIST Work Phone: Plan of Treatment Date Care Activity Detail Author Start: 10-31-2024 Creatinine measurement Creatinine Le abiodun [facility] Start: 10-31-2024 Potassium measurement Potassium Arun poe [facility] Start: 09-20-2024 Echocardiography Echocardiogram [facility] Start: 06-20-2024 Glaucoma screening [facility] Start: 12-19-2023 Hemoglobin A1c measurement [facility] Start: 11-07-2023 End: 11-01-2024 Renal function 2000 panel - Serum or Plasma Renal Function Panel Lab Routine Chronic systolic heart failure (CMS/HCC) Expected: 11/07/2023 (Approximate), Expires: 11/01/2024 [facility] Service Area Work Phone: Comment on above: Expected: 11/07/2023 (Approximate), Expires: 11/01/2024 Start: 2023 End: 2023 Admission to same day surgery center 2023 10:00 AM EST - 2023 1:35 PM [place] [address] [place] [id number] [place] [address] Department [place] [address] Resection Laparoscopy Sigmoid Colon [12476 (CPT )] [facility] [place] Comment on above: Resection Laparoscop y Sigmoid Colon [88957 (CPT )] Start: 2023 End: 2023 Laparoscopy colectomy partial w/anastomosis Resection Laparoscopy Sigmoid Colon Diverticulitis 2023 10:00 AM EST Virtual [facility] Start: 2023 Subsequent hospital visit by physician 2023 8:30 AM EST Hospital En[place] [facility] [address] [address] [place] [address] [place] [address] [address] Department of Surgery-Colorectal [place] [id number] [facility] [place] Start: 10-31-2023 End: 10-31-2023 Patient encounter procedure 10/31/2023 11:40 AM EST Office Visit [facility] [address] [address] Ma[address] [place] [id number] Elida Villareal, BRICK STACKER-ENTRY LEVEL RECEPTIONIST [address] [place] [address] [facility] Start: 10-28-2023 End: 10-28-2023 Admission to establishment 10/28/2023 8:45 AM EST Pre-Admission Testing [facility] [address] [place] [id number] [facility] Start: 10-17-2023 End: 10-17-2024 CBC W Auto Differential panel - Blood CBC and Auto Differential Lab Routine Colovaginal fistula Expected: 10/17/2023 (Approximate), Expires: 10/17/2024 [facility] Work Phone: Comment on above: Expected: 10/17/2023 (Approximate), Expires: 10/17/2024 Start: 10-17-2023 End: 10-17-2024 Comprehensive metabolic 2000 panel - Serum or Plasma Comprehensive metabolic panel Lab Routine Colovaginal fistula Expected: 10/17/2023 (Approximate), Expires: 10/17/2024 [facility] Service Area Work Phone: Comment on above: Expected: 10/17/2023 (Approximate), Expires: 10/17/2024 Start: 10-17-2023 End: 10-17-2024 Prealbumin [Mass/volume] in Serum or Plasma Prealbumin Lab Routine Colovaginal fistula Expected: 10/17/2023 (Approximate), Expires: 10/17/2024 [facility] Work Phone: Comment on above: Expected: 10/17/2023 (Approximate), Expires: 10/17/2024 Start: 10-17-2023 End: 10-17-2023 ambulatory [facility] Eron Start: 10-12-2023 End: 10-12-2023 ambulatory [facility] Chano Start: 09-15-2023 [facility] Start: 09-15-2023 Bacteria identified in Blood by Culture Blood Culture [facility] Start: 09-15-2023 Hospital admission, emergency, from emergency room, medical nature [facility] Start: 09-15-2023 End: 09-15-2023 Blood culture [facility] Start: 09-15-2023 Blood culture [facility] Start: 09-08-2023 Patient referral [facility] Work Phone: Start: 08-31-2023 Bacteria identified in Urine by Culture [facility] Start: 08-31-2023 [facility] Start: 03-23-2023 Patient referral [facility] Work Phone: Start: 02-28-2023 [facility] Start: 02-27-2023 [facility] Start: 02-26-2023 [facility] Start: 02-25-2023 Patient discharge [facility] Start: 02-23-2023 Physiotherapy of chest [facility] Start: 02-21-2023 Care planning and pr oblem solving actions [facility] Start: 02-20-2023 End: 02-21-2023 [facility] Start: 02-20-2023 [facility] Start: 02-19-2023 Referral to motorcycle police [facility] Start: 02-18-2023 Vital signs measurements [facility] Start: 02-18-2023 Consultation [facility] Start: 02-18-2023 Speech therapy assessment [facility] Start: 02-18-2023 Following clinical p athway protocol [facility] Start: 02-18-2023 Assessment of risk o f venous thromboembolism [facility] Start: 02-18-2023 Assessment using assessment scale [facility] Start: 02-18-2023 Catheterization of vein [facility] Start: 02-18-2023 Consultation [facility] Start: 02-18-2023 Elevation of head of bed [facility] Start: 02-18-2023 Inhalation therapy procedure [facility] Start: 02-18-2023 Insertion of cathete r into peripheral vein [facility] Start: 02-18-2023 Measuring intake and output [facility] Start: 02-18-2023 Mouth care [facility] Start: 02-18-2023 Notification of physician [facility] Start: 02-18-2023 Oxygen therapy [facility] Start: 02-18-2023 Patient referral to dietitian [facility] Start: 02-18-2023 Providing care accor ding to standard [facility] Start: 02-18-2023 Referral to occupati onal therapist [facility] Start: 02-18-2023 Referral to service [facility] Start: 02-18-2023 Removal of urinary catheter [facility] Start: 02-18-2023 Speech therapy assessment [facility] Start: 02-18-2023 Vital signs measurements [facility] Start: 02-18-2023 End: 02-18-2023 [facility] Start: 02-18-2023 Bacterial nucleic ac id assay [facility] Start: 02-18-2023 Streptococcus pneumo niae antigen assay [facility] Start: 02-18-2023 [facility] Start: 02-18-2023 Verification routine [facility] Start: 04-07-2023 Admission procedure [facility] Start: 02-18-2023 CT of chest without contrast Chest without Contrast [facility] Start: 02-17-2023 End: 02-17-2023 Blood culture [facility] Start: 02-17-2023 Airway suction technique [facility] Start: 02-17-2023 [facility] Start: 2009 Hepatitis B Vaccines (1 of 3 - Risk 3-dose series) Hepatitis B Vaccines (1 of 3 - Risk 3-dose series) [facility] Start: 2009 [facility] Start: 1999 Zoster Vaccines (1 of 2) Zoste r Vaccines (1 of 2) [facility] Start: 1999 [facility] Start: 1989 Screening for malign ant neoplasm of breast [facility] Start: 1971 DTaP/Tdap/Td Vaccine s (1 - Tdap) DTaP/Tdap/Td Vaccines (1 - Tdap) [facility] Start: 1971 [facility] Start: 1968 Hepatitis A Vaccines (1 of 2 - Risk 2-dose series) Hepatitis A Vaccines (1 of 2 - Risk 2-dose series) [facility] Start: 1968 Urine screening for protein [facility] Start: 1968 [facility] Start: 1959 Diabetic foot examination [facility] Start: 1955 Pneumococcal Vaccine : 65+ Years (1 - PCV) Pneumococcal Vaccine: 65+ Years (1 - PCV) [facility] Start: 1955 [facility] Start: 05-04-1950 COVID-19 Vaccine (#1) COVID-19 Vacci ne (#1) [facility] Start: 05-04-1950 [facility] Start: 1949 Lipid panel [facility] Start: 1949 Medicare Annual Well ness Visit [facility] Start: 1949 Screening for malign ant neoplasm of colon [facility] Bacteria identified in Blood by Culture Blood Culture [facility] Bacteria identified in Sputum by Respiratory culture [facility] End: 09-23-2023 Cardiac catheterization study [facility] Work Phone: CBC panel - Blood by Automated count [facility] Work Phone: CBC W Auto Different ial panel - Blood [facility] Work Phone: CBC W Auto Different ial panel - Blood [facility] CBC W Auto Different ial panel - Blood [facility] End: 09-28-2023 Cobalamin (Vitamin B12) [Mass/volume] in Serum or Plasma [facility] Work Phone: CT Neck W contrast IV [facility] ECG 12 lead ECG 12 lead ECG Routine Encounter for preadmission testing 11/02/2023 2:17 PM EST [facility] Work Phone: Electrocardiogram, 1 2-lead PRN ACS symptoms [facility] Work Phone: Ferritin [Mass/volum e] in Serum or Plasma [facility] Work Phone: Ferritin [Mass/volum e] in Serum or Plasma [facility] Ferritin [Mass/volum e] in Serum or Plasma [facility] Folate [Mass/volume] in Serum or Plasma [facility] Work Phone: End: 09-28-2023 Folate [Mass/volume] in Serum or Plasma [facility] Work Phone: Glucose [Mass/volume ] in Serum or Plasma [facility] Work Phone: Glucose [Mass/volume ] in Serum or Plasma [facility] Work Phone: End: 09-15-2023 Incentive spirometry Instruct [facility] Work Phone: Iron and Iron bindin g capacity panel - Serum or Plasma [facility] Work Phone: Iron and Iron bindin g capacity panel - Serum or Plasma [facility] Iron and Iron bindin g capacity panel - Serum or Plasma [facility] Lactate dehydrogenas e measurement [facility] Work Phone: Lactate dehydrogenas e measurement [facility] Lactate dehydrogenas e measurement [facility] Legionella pneumophi la Ag [Presence] in Urine [facility] Magnesium [Mass/volu me] in Serum or Plasma [facility] Magnesium [Mass/volu me] in Serum or Plasma [facility] Service Area Work Phone: Magnesium [Mass/volu me] in Serum or Plasma [facility] Work Phone: Microscopic observat ion [Identifier] in Unspecified specimen by Gram stain Gram Stain [facility] Patient Education [facility] Work Phone: Patient referral [facility] Work Phone: Renal function 1999 panel - Serum or Plasma [facility] Work Phone: Renal function 1999 panel - Serum or Plasma [facility] Work Phone: Respiratory Culture Respiratory Culture [facility] Reticulocyte count [facility] Work Phone: Reticulocyte count [facility] Vitamin B12 measurement [facility] Work Phone: Vitamin B12 measurement [facility] Immunizations Immunization Date Immunization Notes Care Provider Kemar morales 08-09-2023 influenza virus vaccine, unspecified formulation DR OSEI WOODWARD MD [facility] [place] 08-23-2022 influenza virus vaccine, unspecified formulation DR OSEI WOODWARD MD [facility] [place] 11-28-2021 influenza virus vaccine, unspecified formulation MARIANA RAMOS MD [facility] 11-28-2021 influenza, injectabl e, quadrivalent, preservative free Jonathan Deperro CATARINA [facility] 11-28-2021 influenza, seasonal, injectable [facility] 09-16-2021 influenza, high dose seasonal, preservative-free; Translations: [Fluad Quadrivalent PF ] LEONA RIOS MD [facility] 08-27-2019 influenza, injectabl e, quadrivalent, preservative free; Translations: [Fluarix PF Quadrivalent ] BARBER CARLISLE BRICK STACKER-ENTRY LEVEL RECEPTIONIST [facility] 09-13-2017 influenza virus vaccine, unspecified formulation MARIANA RAMOS MD [facility] 09-19-2014 influenza virus vaccine, unspecified formulation MARIANA RAMOS MD [facility] Payers Date Payer Category Payer Self-pay [id number] 2022 Private Health Insurance [id number] 2022 Unknown [id number] 2022 Unknown [id number] 2022 Medicare [id number].[facility] 2022 Medicare [id number] 1949 Unknown [id number] 2.16.840.1.131132.3.579.2.6 1949 Unknown [id number] 2.16.840.1.792617.3.579.2.6 1949 Unknown [id number] 2.16.840.1.339596.3.579.2.6 1949 Unknown [id number] 2.16.840.1.239456.3.579.2.6 27 1949 Unknown [id number] 2.16.840.1.363090.3.579.2.6 27 1949 Unknown [id number] 2.16.840.1.755189.3.579.2.6 27 1949 Unknown [id number] 2.16.840.1.323656.3.579.2.6 27 1949 Unknown [id number] 2.16.840.1.334762.3.579.2.1 244 1949 Unknown [id number] 2.16.840.1.587047.3.579.2.1 245 1949 Unknown [id number] 2.16.840.1.001362.3.579.2.1 245 1949 Unknown [id number] 2.16.840.1.855586.3.579.2.1 245 1949 Unknown [id number] 2.16.840.1.411671.3.579.2.1 245 1949 Unknown [id number] 2.16.840.1.551796.3.579.2.1 245 1949 Unknown [id number] 2.16.840.1.801159.3.579.2.1 245 1949 Unknown [id number] 2.16.840.1.488922.3.579.2.1 245 Private Health Insurance [facility] [id number] Unknown Unknown [id number] Unknown [id number] 2.16.840.1.225793.3.579.2.4 62 Unknown [id number] 2.16.840.1.670365.3.579.2.4 62 Unknown [id number] 2.16.840.1.202740.3.579.2.4 62 Unknown [id number] 2.16.840.1.684013.3.579.2.4 62 Unknown [id number] 2.16.840.1.592542.3.579.2.4 62 Unknown [id number] 2.16.840.1.386784.3.579.2.4 62 Unknown [id number] 2.16.840.1.248052.3.579.2.4 62 Unknown [id number] 2.16.840.1.274326.3.579.2.4 62 Social History Date Type Detail Facility Start: 03-10-2020 End: 09-25-2023 Ex-smoker (finding) [facility] Start: 1950 Sex Assigned At Female A [facility] Start: 11-24-2021 End: 09-14-2023 Tobacco smoking status NHIS Unknown if ever smoked [facility] History of tobacco use Current smoker [facility] Work Phone: History of tobacco use Cigarette Smoker U [facility] Work Phone: Start: 09-25-2023 Tobacco use and exposure Smoke less tobacco non-user [facility] Work Phone: Start: 09-28-2023 End: 10-20-2023 Alcohol intake Ex-drinker (finding) [facility] Work Phone: Start: 09-25-2023 End: 10-31-2023 History of Social function [facility] Work Phone: Start: 09-25-2023 End: 10-31-2023 Alcohol Use Disorder Identification Test - Consumption [AUDIT-C] [facility] Work Phone: How often to you hav e a drink containing alcohol? Never [facility] Work Phone: How many standard dr inks containing alcohol do you have on a typical day? [facility] Work Phone: Start: 09-25-2023 Tobacco Comment Patient quit y ears ago [facility] Work Phone: Start: 1950 [facility] Start: 09-06-2023 End: 10-31-2023 Exposure to SARS-CoV-2 (event) Not sure [facility] NEGATED: Highlighted row - - MP-Univ [...] Patient Identi fied Identification band, Verbal [facility] 08-15-2023 Functional Status Maintained [facility] 02-25-2023 Functional status Ambulates;Chair [facility] Work Phone: 07-27-2022 Functional Status Room check performed [facility] 07-26-2022 Functional Status Yes [facility] 07-26-2022 Functional Status Min A 1 [facility] 07-26-2022 Functional Status None [facility] 07-26-2022 Functional Status [facility] 07-26-2022 Functional Status [facility] 07-25-2022 Functional Status Ambulation in Room [facility] 07-25-2022 Functional Status [facility] [...] D evice Unable to use call device [facility] 07-16-2022 Functional Status [facility] 07-16-2022 Functional Status [facility] 07-15-2022 Functional Status [facility] 07-15-2022 Functional Status [facility] 07-13-2022 Functional Status Patient Identi fied Identification band [facility] 07-13-2022 Functional Status Sensory Deficits None A [facility] 07-11-2022 Functional Status Standard Safet y ID band on, Call device within reach, Bed in low position, Wheels locked, Upper/Half-Length side-rails up, Phone within reach, personal items within reach [facility] NEGATED: Highlighted row Functional performance Functional status health issues are not documented Disease [facility] Work Phone: Mental Status Date Assessment Result Facility 08-15-2023 Mental Status Orientation [facility] 4 [facility] 08-09-2023 Cognitive function Level Of Cons ciousness Awake;Alert;Appropriate ;Follows Commands [facility] Work Phone: 02-25-2023 Cognitive function Voice/Name [facility] Work Phone: 07-27-2022 Mental Status Oriented x 4, Follows simple commands [facility] 07-26-[address] [facility] 07-26-[address] [facility] 07-26-[address] [facility] 07-11-2022 Mental Status Orientation [facility] x 4 [facility] NEGATED: Highlighted row Cognitive function [Interpretation] Cognitive status health issues are not documented Disease [facility] Work Phone: Clinical Notes 09-15-2021 to 10-31-2023 Elida Villareal APRN-SILVINO - 10/31/2023 11:40 AM ESTPatient Wendy Sotelo MD - 10/17/2023 11:40 AM Marbella Blood RN - 09/28/2023 11:30 AM EST Note Date & Type Note Facility 10-31-2023 History of Present illness Narrative Subjective Chief Complaint: 72yo patient here for cardiovascular risk stratification prior to noncardiac surgery. HPI Presented as a transfer from [facility] with left lower quadrant abdominal pain [...] Chronic Venous Insufficiency, RLE DVT, OA, GERD, ?LA, LUISA, HFrEF PSHx: Lumpectomy, Cholecystectomy, Appendectomy Presents from [facility] with nursing aid. Denies chest pain. Denies [...] IV Risk w/15% 30-day risk of , LA, or cardiac arrest. Order for BNP. documented in this encounter [facility] Work Phone: 10-31-2023 Instructions FREDY Olivares [...] Continue all other medications as ordered. Call [phone] to schedule follow up with Dr. Rowell ([place]). documented in this encounter [facility] Work Phone: 10-17-2023 History of Present [...] 2 times a day. 09/27/23 Nancy Treviño APRN-ENTRY LEVEL RECEPTIONIST bisacodyl (Dulcolax) 10 mg suppository Insert 1 [...] once daily. For 7 days ending 09/20/23. ([facility] Jie Probiotic 15 BILLION per [facility] list) 09/27/23 Nancy Treviño APRN-ENTRY LEVEL RECEPTIONIST magnesium hydroxide (Milk of Magnesia) 400 mg/5 mL suspension Take 30 mL by mouth once daily as needed for constipation. Historical Provider, metoprolol succinate XL (Toprol-XL) 100 mg 24 hr tablet Take 1 tablet (100 mg) by mouth once daily. Do not crush or chew. Do not start before September 28, 2023. 09/28/23 Nancy Treviño APRN-ENTRY LEVEL RECEPTIONIST ondansetron (Zofran) 4 mg tablet Take 1 [...] 2 times a day. 09/27/23 Nancy Treviño APRN-ENTRY LEVEL RECEPTIONIST sennosides-docusate sodium (Zarina-Colace) 8.6-50 mg tablet Take [...] Pre Op optimization. COMPARISON: None. ACCESSION NUMBER(S): [id number] ORDERING CLINICIAN: KANG JULIAN TECHNIQUE: Using multi-detector [...] Yair Pham 09/28/2023 11:26 AM Dictation workstation: [id number] Electrocardiogram, 12-lead PRN ACS symptoms Result Date: [...] colovesical colovaginal fistula. COMPARISON: None ACCESSION NUMBER(S): [id number] ORDERING CLINICIAN: KANG JULIAN TECHNIQUE: Multiplanar MRI [...] This study was interpreted at [facility], [place], [place]. MACRO: None Signed by: Clint Woods 09/25/2023 3:47 PM Dictation workstation: [id number] Transthoracic Echo (TTE) Complete Result Date: 09/20/2023 [facility], [address] [place] [address] and TRANSTHORACIC ECHOCARDIOGRAM REPORT Patient Name: POLI VALERIY Reading Physician: [id number] Kandi Roberts MD Study Date: 09/20/2023 Ordering Provider: [id number] VARSHA SOTELO MRN/PID: [id number] Fellow: Nurse: Mare Higgins Date of /Age: 12 1950 Petal Shaper Hand: Muna Clinton RDCS years Gender: F Additional Staff: Height: 165.10 cm Admit Date: 09/15/2023 Weight: 74.84 kg Admission Status: Inpatient - Routine BSA: 1.82 m2 Department Location: [facility] Non Invasive Blood Pressure: 126 /75 mmHg Study Type: TRANSTHORACIC ECHO (TTE) COMPLETE Diagnosis/ICD: Encounter for preprocedural cardiovascular examination-Z01.810 CPT Code: Echo Complete w Full Doppler-[id number] Patient History: Pertinent History: Breast cancer, HTN, [...] LA Area A2C: 21.1 cm2 LA Major Mallory A4C: 5.5 cm LA Major Mallory A2C: 5.6 cm AORTA MEASUREMENTS: Normal Ranges: [...] 1.0 m/s (0.6-0.9m/s) PV Max P.0 mmHg [id number] Kandi Roberts MD Electronically signed on 09/20/2023 at 4:04:20 PM Final US abdomen limited liver Result Date: 09/20/2023 Interpreted By: Steven Chacon and Ebai Jerky STUDY: US ABDOMEN LIMITED LIVER; [facility] US ABDOMINAL/PELVIC DUPLEX COMPLETE; 09/19/2023 6:30 pm INDICATION: 72 y/o F with Signs/Symptoms:Throbocytopenia workup; Signs/Symptoms:per doctor request. COMPARISON: None. ACCESSION NUMBER(S): [id number]; [id number] ORDERING CLINICIAN: KANG JULIAN TECHNIQUE: Multiple images of the right upper quadrant were obtained. Gates scale, color Doppler and spectral Doppler waveform analysis was performed. This examination was interpreted at [facility]. FINDINGS: The liver measures 22.6 cm [...] as stated. This study was interpreted at [place], [place]. MACRO: None Signed by: Steven Chacon 09/20/2023 5:44 AM Dictation workstation: [id number] Vascular US abdomen/pelvis duplex complete Result Date: 09/20/2023 Interpreted By: Steven Chacon, and Kim Sheikh STUDY: [facility] ABDOMINAL/PELVIC DUPLEX COMPLETE; 09/19/2023 6:30 pm INDICATION: 72 y/o F with Signs/Symptoms:Throbocytopenia workup; Signs/Symptoms:per doctor request. COMPARISON: None. ACCESSION NUMBER(S): [id number]; [id number] ORDERING CLINICIAN: KANG JULIAN TECHNIQUE: Multiple images of the right upper quadrant were obtained. Gates scale, color Doppler and spectral Doppler waveform analysis was performed. This examination was interpreted at [facility]. FINDINGS: The liver measures 22.6 cm [...] as stated. This study was interpreted at [place], [place]. MACRO: None Signed by: Steven Chacon 09/20/2023 5:44 AM Dictation workstation: [id number] CT head wo IV contrast Result Date: 09/19/2023 Interpreted By: Susy Canales, STUDY: CT HEAD WO IV CONTRAST; 09/19/2023 3:43 pm INDICATION: Signs/Symptoms:R/o subdural hematoma, thrombocytopenia workup (fall several weeks ago). COMPARISON: None. ACCESSION NUMBER(S): [id number] ORDERING CLINICIAN: KANG JULIAN TECHNIQUE: Axial CT [...] Susy Canales 09/19/2023 4:06 PM Dictation workstation: [id number] XR chest 1 view Result Date: 09/19/2023 Interpreted By: Delfin Menezes and [place] Lesley STUDY: XR CHEST 1 VIEW; 09/19/2023 8:46 am INDICATION: Signs/Symptoms:copd on oxygen. COMPARISON: Outside hospital CT chest 03/20/2014 ACCESSION NUMBER(S): [id number] ORDERING CLINICIAN: RIMA APPLE FINDINGS: Single AP [...] This study was interpreted at [facility], [place], [place]. MACRO: None Signed by: Delfin Menezes 09/19/2023 9:36 AM Dictation workstation: [id number] Labs: Lab Results Component Value Date BILIDIR [...] this encounter 10/23/2023 documented in this encounter [facility] Work Phone: 09-28-2023 Nurse Note Discharge paper work sent with patient, along with belongings documented in this encounter [facility] Work Phone: 09-28-2023 History of Present illness Narrative Poli Ramirez is a 72 y.o. female on day 13 of admission presenting with Colovaginal fistula. SW briefly met with pt about discharge needs. Pt lives at the [facility] in [place], [place]. Pt can discharge in the next few days. Facility notified through [facility]. SW will follow and assist as needed. SYDNEY Seth. 09/23/2023 LILY spoke to Caroline ([phone]) at the [facility] about pt's return. The facility does not [...] Seth. 09/26/2023 LILY spoke to Caroline from [facility] about pt's care. Pt has a cardiac scan today. ADOD is tomorr or Tuesday. Updated notes sent to pt's facility. SYDNEY Seth. 09/27/2023 Pt set for discharge today. Neg covid test (taken this morning) sent to [facility]. Transport requested for 1530. SW will let [...] about discharge needs. Pt lives at the [facility] in [place], [place]. Pt can discharge in the next few days. Facility notified through [facility]. SW will follow and assist as needed. SYDNEY Seth. 09/23/2023 LILY spoke to Caroline ([phone]) at the [facility] about pt's return. The facility does not [...] Seth. 09/26/2023 LILY spoke to Caroline from [facility] about pt's care. Pt has a cardiac scan today. ADOD is tomorrow or Tuesday. Updated notes sent to pt's facility. SYDNEY Seth. 09/27/2023 Pt set for discharge today. Neg covid test (taken this morning) sent to [facility]. Transport requested for 1530. SW will let [...] be rescheduled for this morning. SYDNEY Seth. [facility] HEART FAILURE PROGRESS NOTE Poli Ramirez/[id number] Admit Date: 09/15/2023 Hospital Length of Stay: [...] daily as needed for constipation. [DISCONTINUED] HYDROcodone-acetaminophen (Fenwick) 5-325 mg tablet Take 1 tablet by mouth every 6 hours if needed (moderate to severe pain). [DISCONTINUED] L. acidophilus-L. rhamnosus (Probiotic) 15 billion cell capsule Take 1 capsule by mouth once daily. For 7 days ending 09/20/23. ([facility] Ultimate Jie Probiotic 15 BILLION per [...] in 2-4 weeks. Discussed with HF attending, Joevanny Melo DO PGY-4 Advanced Heart Failure Fellow [...] about discharge needs. Pt lives at the [facility] in [place], [place]. Pt can discharge in the next few days. Facility notified through [facility]. SW will follow and assist as needed. SYDNEY Seth. 09/23/2023 LILY spoke to Caroline ([phone]) at the [facility] about pt's return. The facility does not [...] Seth. 09/26/2023 LILY spoke to Caroline from [facility] about pt's care. Pt has a cardiac scan today. ADOD is tomorrow or Tuesday. Updated notes sent to pt's facility. SYDNEY Seth. 09/27/2023 Pt set for discharge today. Neg covid test (taken this morning) sent to [facility]. Transport requested for 1530. SW will let the facility know when transport is confirmed. SYDNEY Seth. 09/27/2023 Transport set for 1730 with [facility]. Care team and facility notified. SYDNEY Seth. Poli Ramirez is a 72 y.o. female on day 12 of admission presenting with Colovaginal fistula. SW briefly met with pt about discharge needs. Pt lives at the [facility] in [place], [place]. Pt can discharge in the next few days. Facility notified through [facility]. SW will follow and assist as needed. YSDNEY Seth. 09/23/2023 LILY spoke to Caroline ([phone]) at the [facility] about pt's return. The facility does not [...] Seth. 09/26/2023 LILY spoke to Caroline from [facility] about pt's care. Pt has a cardiac scan today. ADOD is tomorrow or Tuesday. Updated notes sent to pt's facility. SYDNEY Seth. 09/27/2023 Pt set for discharge today. Neg covid test (taken this morning) sent to [facility]. Transport requested for 1530. SW will let [...] of occurrence. Would advise not prolonging NTF alf as can cause pulmonary toxicity but address class a regional drivers of UTI (fistula). Additionally, would recommend continuing [...] if further questions. ID team A pager [phone]. For new consults, contact pager [phone]. Patient staffed with ID attendant Dr Agarwal [...] of Assistance 1: Minimum assistance Outcome Measures: [facility] Basic Mobility Turning from your back [...] RW (Progressing) Start: 09/22/23 Expected End: 10/06/23 [facility] HEART FAILURE PROGRESS NOTE Poli Ramirez/[id number] Admit Date: 09/15/2023 Hospital Length of Stay: [...] than 70 and non-responsive or NPO HYDROcodone-acetaminophen (Fenwick) 5-325 mg tablet Take 1 tablet by [...] 15-20%. Similar findings on TTE report from [place]. Currently she appears compensated. Unknown etiology currently. [...] about discharge needs. Pt lives at the [facility] in [place], [place]. Pt can discharge in the next few days. Facility notified through [facility]. SW will follow and assist as needed. SYDNEY Seth. 09/23/2023 LILY spoke to Caroline ([phone]) at the [facility] about pt's return. The facility does not [...] Seth. 09/26/2023 LILY spoke to Caroline from [facility] about pt's care. Pt has a cardiac scan today. ADOD is tomorrow or Tuesday. Updated notes sent to pt's facility. SYNDEY Seth. Poli Ramirez is a 72 y.o. female on day 11 of admission presenting with Colovaginal fistula. LILY briefly met with pt about discharge needs. Pt lives at the [facility] in [place], [place]. Pt can discharge in the next few days. Facility notified through [facility]. SW will follow and assist as needed. SYDNEY Seth. 09/23/2023 LILY spoke to Caroline ([phone]) at the [facility] about pt's return. The facility does not [...] appendectomy who presented as a transfer from [facility] due to left lower quadrant abdominal [...] DM2, who presented as a transfer from [facility] due to left lower quadrant abdominal [...] PO PPI : Maintain stephens for decompression; NUCLEAR MEDICINE PET CT TECHNOLOGIST ONC - likely no fistula to vagina [...] Dr. Subramanian. Rasheed Brandt MD Colorectal Surgery [facility] Pager [phone] Poli Ramirez is a 72 y.o. female [...] about discharge needs. Pt lives at the [facility] in [place], [place]. Pt can discharge in the next few days. Facility notified through [facility]. SW will follow and assist as needed. Susy Blunt [facility], OPERATIONS GENERAL AGENT. 09/23/2023 LILY spoke to Caroline ([phone]) at the [facility] about pt's return. The facility does not accept weekend discharges so pt will discharge back to facility on 09/26/2023. Pt will also need a negative covid test, taken same day. Care team notified. SW will arrange transport for midday 09/26. SW will follow and assist. SYDNEY Seth. [facility] HEART FAILURE PROGRESS NOTE Poli Ramirez/[id number] Admit Date: 09/15/2023 Hospital Length of Stay: 7 Primary Service: Colorectal surgery INTERVAL EVENTS / PERTINENT ROS: Records reviewed from [place]. Patient is being planned for surgery for [...] than 70 and non-responsive or NPO HYDROcodone-acetaminophen (Fenwick) 5-325 mg tablet Take 1 tablet by [...] Home Living: Home Living Type of Home: [facility] facility Home Adaptive Equipment: Wheelchair-manual, Walker rolling or standard Home Layout: One level Bathroom Shower/Tub: Walk-in shower Bathroom Toilet: Handicapped height Prior Level of Function: Prior Function Per Pt/Caregiver Report Level of Emmet: Needs assistance with ADLs, Needs assistance with [...] extension and ankle DF 4/5) Outcome Measures: [facility] Basic Mobility Turning from your back [...] about discharge needs. Pt lives at the [facility] in [place], [place]. Pt can discharge in the next few days. Facility notified through [facility]. SW will follow and assist as needed. [...] intensity level of continued care (Return to senior care with Low intensity therapy services) OT Recommended [...] Functional Limits Home Living: Type of Home: Intermediate facility Lives With: Alone Home Adaptive Equipment: Wheelchair-manual, Walker rolling or standard Home Layout: One level Home Access: No concerns Bathroom Shower/Tub: Walk-in shower Bathroom Toilet: Handicapped height Bathroom Equipment: Grab bars in shower, Built-in shower seat, Grab bars around toilet Home Living Comments: Living in senior care Prior Function: Level of Emmet: Needs assistance with ADLs, Needs assistance with [...] LUE LUE: Within Functional Limits Outcome Measures: [facility] Daily Activity Putting on and taking [...] appendectomy who presented as a transfer from [facility] due to left lower quadrant abdominal [...] pancytopenia who presented as a transfer from [facility] due to left lower quadrant abdominal [...] (09/23) : Monitor UOP and maintain stephens Lens Blocker onc consulted for vaginal bleeding, appreciate recs Ucx: e.fecium, awaiting sensitivities Heme/ID: Daily labs. Continue rocephin/flagyl Ppy: Lovenox 40mg daily, SCDs Special: Okay for shower Dispo: Continue care on RNF. Patient seen by and plans discussed with staff, Dr. Sotelo. Kang Julian MD Colorectal Surgery [facility] Pager [phone] Images from the original note were not [...] appendectomy who presented as a transfer from [facility] due to left lower quadrant abdominal pain suspicious for colovesical/colovaginal fistula and diverticulitis on CT. Subjective Lens Blocker Onc on board for vaginal bleeding, awaiting [...] pancytopenia who presented as a transfer from [facility] due to left lower quadrant abdominal [...] today : Monitor UOP and maintain stephens Lens Blocker onc consulted for vaginal bleeding, appreciate recs MRI pelvis ordered Ucx Heme/ID: Daily labs. Continue rocephin/flagyl Ppy: Lovenox 40mg daily, SCDs Special: Okay for shower Dispo: Continue care on RNF. Patient seen by and plans discussed with staff, Dr. Sotelo. Jesus Newman, DO Colorectal Surgery [facility] Pager [phone] 09/20/23 0270 Discharge Planning Living Arrangements Other (Comment) (detention) Support Systems Children Type of Residence detention/residential care Patient expects to be discharged to: Return to senior care- [facility] in [place], [place] Does the patient need discharge transport [...] for a colovesical/colovaginal fistuala. She resides at [facility] in [place], [place]. She would like to return there [...] appendectomy who presented as a transfer from [facility] due to left lower quadrant abdominal pain suspicious for colovesical/colovaginal fistula and diverticulitis on CT. Subjective Lens Blocker Onc on board for vaginal bleeding, awaiting [...] pancytopenia who presented as a transfer from [facility] due to left lower quadrant abdominal [...] prealbumin : Monitor UOP and maintain stephens Lens Blocker onc consulted for vaginal bleeding, appreciate recs MRI pelvis ordered Ucx today Heme/ID: Daily labs. Continue rocephin/flagyl Ppy: Lovenox 40mg daily, SCDs Special: Okay for shower Dispo: Continue care on RNF. Patient seen by and plans discussed with staff, Dr. Sotelo. Kang Julian MD Colorectal Surgery [facility] Pager [phone] Images from the original note were not [...] appendectomy who presented as a transfer from [facility] due to left lower quadrant abdominal [...] pancytopenia who presented as a transfer from [facility] due to left lower quadrant abdominal [...] Dr. Sotelo. Kang Julian MD Colorectal Surgery [place] Pager [phone] Images from the original note were not [...] appendectomy who presented as a transfer from [facility] due to left lower quadrant abdominal [...] pancytopenia who presented as a transfer from [facility] due to left lower quadrant abdominal [...] Dr. Sotelo. Fran Brenner MD Colorectal Surgery [facility] Pager [phone] Images from the original note were not [...] appendectomy who presented as a transfer from [facility] due to left lower quadrant abdominal [...] pancytopenia who presented as a transfer from [facility] due to left lower quadrant abdominal [...] Dr. Sotelo. Michelle Hendrickson MD Colorectal Surgery [facility] Pager [phone] Pharmacy Medication History Review Poli Ramirez is a 72 y.o. female admitted for Colovaginal fistula. CRIMPER OPERATOR Medication List has been updated as [facility] 09/14/23, 21:31:04 ET. The list below reflects the updated CRIMPER OPERATOR list. Please review each medication in order [...] than 70 and non-responsive or NPO HYDROcodone-acetaminophen (Fenwick) 5-325 mg tablet Take 1 tablet by [...] [tizanidine] Not Specified Unknown Derrick Arriola PharmD, [facility] Transitions of Care Pharmacist Medication reconciliation complete Please reach out via Dash for questions, or if no response call [employer] or [employer]. [facility] documented in this encounter [facility] Work Phone: 09-27-2023 Hospital course Narrative [...] appendectomy who presented as a transfer from [facility] with left lower quadrant abdominal pain [...] HYDROcodone-acetaminophen 5-325 mg tablet; Commonly known as: Fenwick; Take 1 tablet by mouth every 6 [...] once daily. For 7 days ending 09/20/23. ([facility] Ultimate Jie Probiotic 15 BILLION per [...] appointments. FREDY Holcomb documented in this encounter [facility] Work Phone: 09-27-2023 Miscellaneous Notes Poli Ramirez is a 72 year old female with a past medical history significant for hypertension on Lasix and lisinopril, hyperlipidemia, COPD (on 2 L nasal cannula at home), type 2 diabetes (not on insulin at home), left breast cancer status post lumpectomy, pancytopenia, open cholecystectomy and appendectomy who presented as a transfer from [facility] with left lower quadrant abdominal pain [...] Lancaster MD MPH Gynecologic Oncology PGY7 Pager: [phone], Team Phone: [phone] Problem: Pain Goal: My pain/discomfort is manageable [...] NPO since 1200, plan for U/S around [id number]. PRN pain medication given per orders. Patient requesting lidocaine gel for vaginal area for pain at stephens site, notified. All needs met, WCTM. Please see media for colonoscopy note from 08/15/23 at [facility]. Patient transitioned to the colorectal surgery service. Acute care surgery will sign off at this time. Thank you for allowing us to take care of Ms. Ramirez and we wish the best for her. Appreciate colorectal surgery care. Og Luis MD PGY-1 General Surgery Acute Care Surgery [phone] Epic Chat Preferred Discussed terms of patient's [...] but that he is currently in a senior care here in [place]. Also states that she has a daughter, Jocy Ramirez, who can make decisions for her. Does not have Jocy's number at this time, but states that she would be okay with surgical team calling her to let her know she is in the hospital at [facility]. Staci Degroot MD PGY-3 General Surgery documented in this encounter [facility] Work Phone: 09-23-2023 Consult note Associated [...] had a colonoscopy several weeks ago at [facility] for " work-up of the abdominal [...] colonic-vaginal vs colonic vesicular fistula. Transferred to [facility] 09/16 for surgical eval. Underwent MRI 09/21 [...] than 70 and non-responsive or NPO HYDROcodone-acetaminophen (Fenwick) 5-325 mg tablet Take 1 tablet by [...] of occurrence. Would advise not prolonging NTF alf as can cause pulmonary toxicity but address class a regional drivers of UTI (fistula). Additionally, would recommend continuing [...] if further questions. ID team A pager [phone]. For new consults, contact pager [phone]. Patient staffed with ID attendant Dr Agarwal [...] s/p lumpectomy, pancytopenia. She originally presented to [facility] with LLQ abdominal pain over the [...] had a colonoscopy several weeks ago at [facility] for work-up of the abdominal pain which was significant for a reported "obstructing mass". Per patient she needed surgery at this time, however, she was not medically optimized, so her surgeon "refused" to perform the operation. She denies previous cardiac history, chest pain, or dyspnea. During pre operative [place] [facility] she had a routine TTE which is [...] than 70 and non-responsive or NPO HYDROcodone-acetaminophen (Fenwick) 5-325 mg tablet 1 tablet, oral, Every [...] was refused from a surgical intervention at [facility] which sounds like it may have been due to her heart disease. 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 Still being worked up by primary team, no surgery planned as of yet #Hypertension #Hyperlipidemia #COPD on 2L chronically Recommendations: Please obtain her records from [facility] for any echos, or cardiac consultations/testing. Start [...] and anemia who is a transferred from [facility] with left lower quadrant abdominal pain and acute vaginal bleeding, with 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 AUB -postmenopausal bleeding, pelvic exam limited but unremarkable, given recent weight loss and poor appetite, symptoms c/f AUB-M - MRI ordered by primary team, will follow up and assess for endometrial biopsy - No active bleeding noted at bedside, recommend pad counts (notify [facility] On[facility] team if >2pad/hr over 2hrs) Colovesical/Colovaginal [...] vaginal bleeding. Pelvic MRI without evidence of NUCLEAR MEDICINE PET CT TECHNOLOGIST cancer. She should have an endometrial biopsy. If she is having surgery this hospitalization will perform while hospitalized, otherwise would do as an outpatient. We will be available if needed for surgery. Eric Osorio MD Subjective 72 y.o with h/o left breast cancer, HTN, COPD (on 2L NC at home), T2DM, chronic thrombocytopenia and anemia who is a transferred from [facility] for left lower quadrant abdominal pain [...] than 70 and non-responsive or NPO HYDROcodone-acetaminophen (Fenwick) 5-325 mg tablet Take 1 tablet by [...] found for: "LACTATE" documented in this encounter [facility] Work Phone: 09-22-2023 History and physical [...] s/p lumpectomy, pancytopenia. She originally presented to [facility] with LLQ abdominal pain over the [...] had a colonoscopy several weeks ago at [facility] for work-up of the abdominal pain which was significant for a reported "obstructing mass". Per patient she needed surgery at this time, however, she was not medically optimized, so her surgeon "refused" to perform the operation. She denies previous cardiac history, chest pain, or dyspnea. During pre operative evaluation at [facility], she had a routine TTE which is [...] than 69 and non-responsive or NPO HYDROcodone-acetaminophen (Fenwick) 5-325 mg tablet 1 tablet, oral, Every [...] was refused from a surgical intervention at [facility] which sounds like it may have been due to her heart disease. 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 Still being worked up by primary team, no surgery planned as of yet #Hypertension #Hyperlipidemia #COPD on 2L chronically Recommendations: Please obtain her records from [facility] for any echos, or cardiac consultations/testing. Start [...] included. Colorectal Surgery Consult H&P Poli Ramirez [phone] Consults Reason for admission: We were consulted [...] appendectomy who presents as a transfer from [facility] due to left lower quadrant abdominal pain suspicious for colovesical/colovaginal fistula and diverticulitis on CT. Patient reports left lower quadrant abdominal pain for the last 4 months. Pain worsened 2 nights ago at which time she presented to [facility]. Patient also reports 4 weeks ago she began having vaginal bloody discharge and dark brown/red urine with dysuria. Patient denies any difficulty urinating however she endorses the vaginal discharge/urine has a foul odor to it. Patient had a colonoscopy several weeks ago at [facility] for work-up of the abdominal pain [...] pancytopenia who presents as a transfer from [facility] due to left lower quadrant abdominal pain suspicious for colovesical/colovaginal fistula and diverticulitis on CT. Physical exam and imaging (review radiology) is suspicious for fistula. Will work on medical optimization and acquiring outside hospital colonoscopy results for further work-up. Will engage Dr. Apple for optimization, appreciate [facility]. Neuro: Continue current pain regimen with IV [...] Deepak Brenner MD, MD Colorectal Surgery [facility] Service Pager [phone] [facility] ACUTE CARE SURGERY - HISTORY AND PHYSICAL / CONSULT Patient Name: Poli Ramirez Admit Date: [id number] : 1950 AGE: 72 y.o. GENDER: female TODAY'S ASSESSMENT AND PLAN OF CARE: NPO w/ IVF IV ceftriaxone and metronidazole Pain and nausea control as needed Interdisciplinary care with Colorectal Surgery for further workup including imaging and/or colonoscopy Gina Rush MD [facility] [id number] CHIEF COMPLAINT/REASON FOR CONSULT: Poli Ramirez is a 72 yo F, medical history significant for HTN, HLD, COPD (on 2L NC at home), T2DM, left breast cancer (ER positive, T1c, N0, cM0) s/p left lumpectomy, pancytopenia, and open cholecystectomy, appendectomy, who was transferred from [facility] for an intraabdominal abscess, diverticulitis, and a [...] a colonoscopy a few weeks ago at [facility] but was told they did not reach the ileocecal valve due to an obstructing mass and no biopsies were taken. She adds she was referred to a surgeon at [facility] but says "the doctor refused surgery because [...] chemoprophylaxis, full code. documented in this encounter [facility] Work Phone: 09-15-2023 Discharge summary Note Date/Time September 15, 2023 1:09am [facility] Medical Records Department [address] [place] [address] Emergency Department Summary 09/15/23 MR#: [id number] Acct: [id number] Name: POLI RAMIREZ Rep #:[id number] : 1950 72 From: Calvin Hester DO PCP: Dr. Jonathan Dillard Sr., DO Status:R EG ER Location: ED ADDENDUM by Dr. Jerad Thomas MD on 09/15/23 at 1326 Patient was turned over to me pending transfer. Physician at [facility] accepted. But there is no bed currently. [...] Patient is a 71-year-old female from the senior care with past medical history of COPD on oxygen 06/06 as well as congestive heart failure hypertension and diabetes. She has been evaluated over the past 4 to 5 months for recurrent abdominal pain and found to have chronic colitis. There is concern this could be related to a potential malignancy. The patient is on Fenwick secondary to this. Reportedly she recently was diagnosed with UTI as well and has been placed on antibiotics. Patient is complaining of persistent abdominal pain as well as vaginal bleeding [facility] Medical History Acute on chronic respiratory failure [...] bisacodyl 10 mg rectal suppository 10 mg VA DAILY PRN constipation 11/11/22 [History Last Taken [...] surgery Hx of cholecystectomy Social History housing: senior care Smoking Status: Former smoker alcohol intake: never [...] reported the pain has been controlled with Fenwick and now is no longer controlling her [...] case was discussed with Dr. Landon/surgery from [facility]. She agrees to accept the patient [...] (Auto) 70.5 H Lymph % (Auto) 19.5 Towner % (Auto) 7.8 Eos % (Auto) 0.8 [...] Clarity Clear Urine pH 6.0 Ur Specific [place] 1.010 Urine Protein 30 H Urine Glucose [...] EDT , Management Discussion w/another healthcare provider: Global Marketing Manager and Other Discharge Plan Triage Chief Complaint: Abd Pain ED Provider: Calvin Hester Dx/Rx/DC Orders Clinical Impression: Type 2 diabetes mellitus, Abscess of intestine, COPD (chronic obstructive pulmonary disease), Chronic anemia Prescriptions: No Action bisacodyl 10 mg suppository 10 mg VA DAILY PRN (Reason: constipation) cranberry 400 mg [...] Disposition Disposition: Acute Care Hospital Discharge Location: [facility] What to do if you have Problems For any increased pain, shortness of breath, bleeding, nausea or vomiting, chestpain, or any unexpected problems, contact your Primary Care Provider. Call [facility] ([phone]) or report to the closest Emergency Room. Call 911 if necessary. 09/15/23 0535 <Electronically signed by Calvin Hester DO> Cosigner Signature (if applicable): CC: Dr. Jonathan Dillard Sr., DO ~ Signed [facility] Work Phone: 1(232) 619-136510-06-2023 Evaluation + Plan note Future Scheduled Tests Radiology* MRI Pancreas 08/19/23 [facility] 10-04-2023 Note ORIGINAL EXAMINATION: BARIUM ENEMA08/17/2023 [...] Sign Date: 08/17/2023 3:50:07 PM Ordering Provider: [facility]10-02-2023 Hospital Discharge instructions Patient Education 08/15/2023 [...] including vitamins, herbs, eye drops, creams, and qpjx-dao-hpwbbwu medicines. Any blood disorders you have. Any [...] provider tells you to take them. ?Taking kjjc-vmf-dkkrbqu medicines, vitamins, herbs, and supplements. Follow instructions [...] Document Reviewed: 03/06/2019 Elsevier Patient Education 2020 [employer]. 08/15/2023 12:07:59 Barium Enema Barium Enema A [...] including vitamins, herbs, eye drops, creams, and gcnf-vjm-klvrfmc medicines. Any blood disorders you have. Any [...] provider tells you to take them. ?Taking bfhh-wje-yksnczb medicines, vitamins, herbs, and supplements. Follow instructions [...] 10/28/2001 Document Revised: 03/06/2019 Document Reviewed: 03/06/2019 [employer] Patient Education 2020 [employer]. 08/15/2023 12:02:48 Monitored Anesthesia Care, Care After [...] before eating solid foods. General instructions Take xobf-oqn-qhibofx and prescription medicines only as told by [...] 02/20/2017 Document Revised: 01/29/2019 Document Reviewed: 02/20/2017 [employer] Patient Education 2020 [employer]. 08/15/2023 12:02:43 Colonoscopy, Adult, Care After Colonoscopy, [...] a slower pace than normal. ?Eat soft, fjlo-va-afnnqc foods. Take ivmq-zzo-ybkqbhr or prescription medicines only as told by [...] 06/14/2005 Document Revised: 08/23/2018 Document Reviewed: 01/11/2017 [employer] Patient Education 2020 [employer]. Follow Up Care 08/09/2023 08:04:53 With:MARK JEREZ Address: [address] [place] [phone] Business (1) When: Unknown Comments:KEEP YOUR APPOINTMENT FOR YOUR MRI ON TUESDAY AT [address] JEREZ WOULD LIKE POLI TO HAVE A BARIUM EMEMA ON TUESDAY. THE ORDER IS IN THE FOLDER. PLEASE CALL DR. JEREZ'S OFFICE TO GET THE ORDERS FOR A PREP. PLEASE CALL THE NUMBER ON THE ORDER TO SCHEDULE THE BARIUM ENEMA [phone]. [facility] 10-02-2023 Evaluation + Plan noteExtracted from: Title:Clinical Document Author:MARK JEREZ Date:08/15/23 [facility] ADMISSION HISTORY AN D PHYSICIAL CHIEF COMPLAINT: HISTORY OF PRESENT ILLNESS: REVIEW OF SYSTEMS: ACTIVE PROBLEMS: (32) Anemia (020184401) Arthritis (3333162) Benign colon polyp (5239222227) Breast cancer (416229860) Cervical spine fracture (128669357) Chest pain (46189059) Chronic anemia (502695379) Chronic back pain (159462983) COPD (08477702) Dependence on wheelchair (929405741) Diabetes mellitus type 2 (831547635) Diabetic neuropathy (294702120) Diarrhea (900883390) Dysphagia (50994559) Edema of both lower extremities (555097416) Encounter for surgical aftercare following surgery of nervous system (247902045) General weakness (45722411) GERD (gastroesophageal reflux disease) ([id number]) Glasses (8281628088) Goiter (7254516) Hard of hearing (658925760) Heart attack (87500237) History of radiation exposure (869347865) Hx of thrombocytopenia (149014495) Hyperlipidemia (18632201) Hypertension, essential (75673363) Incontinence of urine (3794296981) Osteoarthritis (4752021497) Oxygen dependent (1909089335) Pancreatic cyst (85159982) Rheumatic fever (18321880) Urinary incontinence (6176737280) MEDICATIONS: Active Inpt Meds: None Active PRN Meds: None One Time Meds: None Active IV Meds: Lactated Ringers Infusion 1,000 mL (LR 1,000 mL) Start: 08/15/23 10:41:00 EDT, Rate: 50 mL/hr, 08/15/23 10:41:00 EDT ALLERGIES: (2) Flexeril Zanaflex FAMILY HISTORY: SOCIAL HISTORY: PHYSICAL EXAM: VITALS: HdkvudJmjkRMYqdbcEKLqT1TPL5MbnqVh(kg) 08/15 10:1936.7--778411MG37/02 95.0 08/15 95.0 24 Hr Tmax: 36.7 [...] LABS: 36hr Labs 08/15 1041 Blood Glucose, Vzfzavxyv505J Blood Glucose, Phbvenehv079G DIAGNOSTICS: IMPRESSION: PLAN: History and Physical Update I have examined the patient; reviewed the H&P and there are no changes to the H&P unless noted below. Future Appointments Appointment Date:08/17/2023 10:30:00 AM Scheduled Provider: Location:[facility] Appointment Type:XR Barium Enema Complete Appointment Date:08/19/2023 02:30:00 PM Scheduled Provider: Location:[facility] Appointment Type:MRI Pancreas Future Scheduled Tests Radiology* XR Barium Enema Complete 08/17/23 * MRI Pancreas 08/19/23 [facility] 10-02-2023 Summary of episode note Discharge Instructions Thank you for allowing [facility] to assist you with your healthcare needs. The following is importantdischarge information regarding your hospital visit. Your Care Team BARBER CARLISLE What to do next Scheduled Follow-Up Appointments Appointment Type When Where Contact InformationMRI Pancreas 08/19/2023 02:30 PM [facility] Radiology [phone] Follow Up Appointments Follow Up with MARK JEREZ When Why: KEEP YOUR APPOINTMENT FOR YOUR MRI ON TUESDAY AT [address] JEREZ WOULD LIKE POLI TO HAVE A BARIUM EMEMA ON TUESDAY. THE ORDER IS IN THE FOLDER. PLEASE CALL DR. JEREZ'S OFFICE TO GET THE ORDERS FOR A PREP. PLEASE CALL THE NUMBER ON THE ORDER TO SCHEDULE THE BARIUM ENEMA [phone]. Where: [address] [place] [address]- [phone] Business (1) The Following Activity and Diet [...] including vitamins, herbs, eye drops, creams, and olvt-cvi-wxwajrq medicines. Any blood disorders you have. Any [...] tells you to take them. ? Taking tmvc-lbq-lqmvpqg medicines, vitamins, herbs, and supplements. Follow instructions [...] 10/28/2001 Document Revised: 03/06/2019 Document Reviewed: 03/06/2019 [employer] Patient Education 2020 [employer]. Barium Enema A barium enema is a [...] including vitamins, herbs, eye drops, creams, and cukx-pld-zajzrpp medicines. Any blood disorders you have. Any [...] tells you to take them. ? Taking egcn-jsj-rwdhzpc medicines, vitamins, herbs, and supplements. Follow instructions [...] 10/28/2001 Document Revised: 03/06/2019 Document Reviewed: 03/06/2019 [employer] Patient Education 2020 [employer]. Monitored Anesthesia Care, Care After These instructions [...] before eating solid foods. General instructions Take zluw-drb-wmkmtio and prescription medicines only as told by [...] 02/20/2017 Document Revised: 01/29/2019 Document Reviewed: 02/20/2017 [employer] Patient Education 2020 [employer]. Colonoscopy, Adult, Care After This sheet gives [...] slower pace than normal. ? Eat soft, xcht-tu-krcujp foods. Take msns-rca-lthnwhe or prescription medicines only as told by [...] 06/14/2005 Document Revised: 08/23/2018 Document Reviewed: 01/11/2017 [employer] Patient Education 2020 [employer] Additional Information VACCINATE! IT SAVES LIVES! Members of the community who have not yet received the COVID-19 vaccine and would like to receive it can visit one of [facility] vaccine clinics. There are many vaccine clinic locations within the [facility]. For locations and available times, please visit [email or web address].[place].gov/. It is important to note that some COVID mobile vaccine clinics are held outdoors and may be canceled in rainy or stormy conditions. To learn more about pediatric vaccinations (ages 5-11), we invite you to visit the [facility] webpage. [email or web address]/[email or web address]-Hfpuf-Bynaektuess-Iqscgthnxc-Uxuom-Htl stions.htmlTo learn more about the COVID-19 vaccine, we invite you to visit the CDC website for a list of frequently asked questions.https://www.cdc.gov/coronavirus/2019-ncov/vaccines/faq.html [facility] Patient Portal Access Instructions: Stay connected with your healthcare team and access your personal medical information anytime with the [facility] Patient Portal. Please follow the directions below to create your [facility] account: 1.Access the email account you provided upon registration to the hospital/physician office.2.Look for an invitation email from [facility].3.Open the email and access the invitation link: AcceptInvitation to [facility].4.Fill in the required quijano to create your account. To access your account, visit [email or web address]. Click the blue button labeled "Access Patient Portal" and then log in with the username and password that you created in the steps above. You will be able to view your test results, lab results, a summary of your visits, upcoming appointments and more. There is also a convenient messaging option where you can send secure messages to your [employer]. In addition, you will have the ability to download any documents or summaries to your computer and/or send the information securely to a physician. Remember that your healthcare information is confidential, so carefully consider who you will allowto register on the [facility] Patient Portal for access to your information. You can also access the [facility] Patient Portal on the [facility] marcy. Simply click on "Patient Portal" and then log into your account. If you would like to receive a full copy of your medical records, please contact the [facility] Medical Records Department by calling [phone], Tuesday through Tuesday between 8 a.m. and [...] Call your local pharmacy or go to [email or web address]/[email or web address] to find one close to you.3.Make use of household items: Use cat litter or old coffee grounds to dispose medications if other options arenot available. Mix your drugs with these household products, seal them in an airtight container andthrow it into the garbage. Call [facility]: [phone] to be sure your drugs can be [...] that I should contact my d octor. Patient/Compressor Operator Adjuster Signature: Date/Time: Relationship to Patient: Witness Name/Signature: Date/Time: [facility]10-02-2023 Nurse Progress note Attempted colonoscopy. Dr. Jerez ordered a Barium Enema. Rn Clinical Appeals X-Rays taken. Radiologist stated tomuch air for a Barium Enema today. Dr. Jerez notified. Orders received. Digitally Signed by Amy Watters RN on 08/15/2023 11:54 AM [facility]10-02-2023 Note ORIGINAL HISTORY: Failed colonoscopy, [...] Sign Date: 08/15/2023 12:08:09 PM [facility]ing [facility] Anesthesiology Consult note Patient: POLI RAMIREZ Age: 72 years Sex: Female : 1950 Associated Diagnoses: None Author: DELFIN RAM APRN-HERB COUNSELOR Assessment Postanesthesia assessment Vitals: Vital signs from [...] DELFIN RAM on 08/15/2023 11:22 AM [facility]10-02-2023 Anesthesiology Consult note Patient: POLI [...] list: Medical Chronic anemia / SNOMED CT 884548188 / Confirmed Chronic back pain / SNOMED CT 443701425 / Confirmed COPD / SNOMED CT 45138538 / Confirmed Hypertension, essential / SNOMED CT 35864323 / Confirmed Cervical spine fracture / SNOMED CT 819622912 / Confirmed GERD (gastroesophageal reflux disease) / SNOMED CT [id number] / Confirmed Goiter / SNOMED CT 7462881 / Confirmed Hyperlipidemia / SNOMED CT 88071145 / Confirmed Encounter for surgical aftercare following surgery of nervous system / SNOMED CT 682908569 / Confirmed Incontinence of urine / SNOMED CT 2692178826 / Confirmed, Active Problems (32) Anemia Arthritis [...] incontinence Histories Past Medical History: Active COPD (36888388) Chronic back pain (353846363) Resolved H/O hypercholesterolemia (0717077648): Resolved. Hypernatremia (3842861915): Resolved. Family History: Heart disease Father Brother Arthritis Daughter Stroke Mother Cancer Sister HTN - Hypertension Mother GERD (gastroesophageal reflux disease) Daughter Diverticulitis Daughter Procedure history: Cervical discectomy (580098220) on 07/13/2022 at 71 Years. Comments: 08/09/2022 11:44 Viji Diaz PILING SETTER ACDF None (949400661). Appendectomy (820236147). Comments: 08/11/2017 12:13 SHAMA BOLTON left water taken off Tubal ligation (061690297). Cholecystectomy (50773410). Arthroscopic knee operation (6416613769). Comments: 12/24/2019 13:16 SHAMA Gabriel right Lumpectomy of breast (9766729728). Comments: 12/24/2019 13:16 SHAMA Gabriel left Phacoemulsification of cataract with intraocular lens implantation (1397556102). Comments: 12/24/2019 13:16 SHAMA Gabriel both eyes Colonoscopy (654490887). Esophagogastroduodenoscopy (567768677). Cardiac catheter (1049337648). Comments: 12/24/2019 13:17 SHAMA Gabriel years ago [...] Signs(last 24 hrs) Last Charted Heart Rate Qfrrvdwxl69 bpm (AUG 15 11:15) Resp Rate H 21br/min (AUG 15 10:19) IWC563 mmHg (AUG 15 11:11) EOC495 mmHg (AUG 15 11:11) BMI34.89 (OCT 02 10:29) Measurements from flowsheet : Measurements 08/15/2023 10:29 EDT Height 165 cm Admission Weight 95 kg [place] Body Weight 56.91 kg BSA Admission 2.02 Body Mass Index 34.89 kg/m2 08/15/2023 10:19 EDT Height 165 cm Admission Weight 95 kg [place] Body Weight 56.91 kg Admission Body Mass [...] mg mg 08/15/2023 11:12 EDT SN - LA - Medication glucagon recombinant 1 mg SN - LA - Route of Administration Intravenous SN - LA - By (Single) SN - LA - By (Single) SN - LA - Time Administered 08/15/2023 11:11 08/15/2023 11:11 [...] propofol 50 mg mg 08/15/2023 11:01 EDT [place] History and Physical 08/15/2023 11:00 EDT SN [...] Surgeon SN - CAt - Role Performed Alteration Workroom Supervisor 1 SN - CAt - Role Performed Alumina Refinery Operator SN - CAt - Role Performed HERB COUNSELOR 08/15/2023 11:00 EDT Heart Rate Monitored 96 [...] Person #2 We May Share AALIYAH Oakley [phone] Designated Person #2 Relationship Daughter Height 165 cm Admission Weight 95 kg [place] Body Weight 56.91 kg BSA Admission 2.02 [...] Method Explanation, Printed materials Preferred Spoken Language Uzbek Preferred Written Language Uzbek Information Given by Patient Patient's Current Physicians Patient's Current Physicians Discharge To, Anticipated Home with family care Prev Test Positive/Diagnosis w/COVID-19 No Current Quarantine/Isolated any Illness No Any Contact with Sick Animals/Birds No Traveled Anywhere in Last 30 Days No N/A Personal Devices, Patient Valuables None Admission Note-Nursing Procedure/Therapy Intake 08/15/2023 10:19 EDT Height 165 cm Admission Weight 95 kg [place] Body Weight 56.91 kg Admission Body Mass [...] Quadrants Present Skin Temperature Warm Skin Description [place], Dry Skin Integrity Intact Mucous Membrane Color [place] Characteristics of Speech Clear Level of Consciousness [...] Allergies Yes Anesthesia Extension Set Applied Yes Non Destructive Tester On Yes Colon Prep Results Excellent Consent [...] Void 08/15/2023 9:00 . Assessment and Plan [place] [employer] Anesthesiologists (ASA) physical status classification: Class IV. Anesthetic Preoperative Plan Anesthetic technique: MAC. Informed consent: signed by patient. Digitally Signed by DELFIN RAM on 08/15/2023 11:21 AM [facility]10-02-2023 Anesthesiology Consult note Patient: POLI [...] by DELFIN RAM on 08/15/2023 11:19 AM [facility]10-02-2023 Note [place] ADMISSION HISTORY AND PHYSICIAL CHIEF COMPLAINT: HISTORY OF PRESENT ILLNESS: REVIEW OF SYSTEMS: ACTIVE PROBLEMS: (32) Anemia (953498271) Arthritis (9401704) Benign colon polyp (2998175103) Breast cancer (856655626) Cervical spine fracture (443248177) Chest pain (79485616) Chronic anemia (346382159) Chronic back pain (076971353) COPD (30128993) Dependence on wheelchair (547202320) Diabetes mellitus type 2 (976157097) Diabetic neuropathy (378292313) Diarrhea (008983749) Dysphagia (80795852) Edema of both lower extremities (678955564) Encounter for surgical aftercare following surgery of nervous system (310341136) General weakness (97264753) GERD (gastroesophageal reflux disease) ([id number]) Glasses (3478955235) Goiter (4640433) Hard of hearing (568301972) Heart attack (60052790) History of radiation exposure (990964574) Hx of thrombocytopenia (053434991) Hyperlipidemia (00939851) Hypertension, essential (33839623) Incontinence of urine (4032807780) Osteoarthritis (4306881940) Oxygen dependent (6380973123) Pancreatic cyst (68179009) Rheumatic fever (37488965) Urinary incontinence (4320770319) MEDICATIONS: Active Inpt Meds: None Active PRN Meds: None One Time Meds: None Active IV Meds: Lactated Ringers Infusion 1,000 mL (LR 1,000 mL) Start: 08/15/23 10:41:00 EDT, Rate: 50 mL/hr, 08/15/23 10:41:00 EDT ALLERGIES: (2) Flexeril Zanaflex FAMILY HISTORY: SOCIAL HISTORY: PHYSICAL EXAM: VITALS: TkaxtsXhthIIDvdzdSDBjA0VLT1XeclHd(kg) 08/15 10:1936.7--150630FB49/02 95.0 08/15 95.0 24 Hr Tmax: 36.7 [...] LABS: 36hr Labs 08/15 1041 Blood Glucose, Zbyznexlg343M Blood Glucose, Ssranvrvr812A DIAGNOSTICS: IMPRESSION: PLAN: History and Physical Update I have examined the patient; reviewed the H&P and there are no changes to the H&P unless noted below. Digitally Signed by MARK JEREZ MD on 08/15/2023 11:05 AM [facility]08-31-2023 Discharge summary Author Shahnaz [facility] July 14, 2023 7:47pm Note Date/Time July 14, 2023 3: 43pm [facility] Medical Records Department [address] [place] [address] Emergency Department Summary 07/14/23 MR#: [id number] Acct: [id number] Name: POLI RAMIREZ Rep #:[id number] : 1950 72 From: Shahnaz Georges PCP: [...] DNR CCA. She is a resident of [facility]. She notes that she is mostly wheelchair-bound but can walk short distances. Had a neck fracture earlier thisyear. [facility] Medical History Acute on chronic [...] bisacodyl 10 mg rectal suppository 10 mg VA DAILY PRN 11/11/22 [History Last Taken Unknown] [...] surgery Hx of cholecystectomy Social History housing: senior care Smoking Status: Former smoker alcohol intake: never [...] Patient isalso prescribed a short course of Fenwick for pain control. Is given first dose [...] 76.9 H Lymph % (Auto) 14.7 L Towner % (Auto) 6.5 Eos % (Auto) 1.3 [...] Clarity Clear Urine pH 6.0 Ur Specific Salida 1.020 Urine Protein 15 H Urine Glucose [...] Action bisacodyl 10 mg suppository 10 mg VA DAILY PRN cranberry 400 mg capsule 400 [...] your Primary Care Provider. Call [facility] ([phone]) or report to the closest Emergency Room. Call 911 if necessary. 07/14/231946 <Electronically signed by Shahnaz Way DO> Cosigner Signature (if applicable): CC: Jonathan Dillard MD ~ Signed [facility] Work Phone: 1(172) 318-707006-06-[address] Vela [facility] April 19, 2023 7:53pm Note Date/Time April 19, 2023 6:13p m [facility] Medical Records Department [address] [place] [address] Emergency Department Summary 04/19/23 MR#: [id number] Acct: [id number] Name: POLI RAMIREZ Rep #:[id number] : 1950 72 From: Alejandra Vela DO PCP: Gilma STUBBS, Jonathan Status:REG ER Location: ED HPI HPI - GI History of Present Illness Chief Complaint: Abd Pain Narrative Narrative: 72-year-old female presenting with left lower quadrant abdominal pain. She states this has been present off and on for weeks. She states that the senior care she is at she gets Tylenol for this and it goes away but over the last few days the Tylenol is not helping. She has nausea without vomiting. She denies constipation. She states she has loose stools its not quite diarrhea. No blackor bloody stools. She states that at times there is right-sided abdominal pain. She has not had a fever at home. [facility] Medical History Acute on chronic [...] bisacodyl 10 mg rectal suppository 10 mg VA DAILY PRN 11/11/22 [History Last Taken Unknown] [...] surgery Hx of cholecystectomy Social History housing: senior care Smoking Status: Former smoker alcohol intake: never [...] discussed with the on-call physician for the senior care. They wish to have the patient started [...] 81.7 H Lymph % (Auto) 11.2 L Towner % (Auto) 5.5 Eos % (Auto) 0.9 [...] Clarity Clear Urine pH 6.5 Ur Specific Salida 1.010 Urine Protein Negative Urine Glucose (UA) [...] Paper guidelines (Bailey, et al. JACR 2017; 14(8):0470-0772) recommend a low dose, non-contrast adrenal CT [...] Action bisacodyl 10 mg suppository 10 mg VA DAILY PRN cranberry 400 mg capsule 400 [...] your Primary Care Provider. Call [facility] ([phone]) or report to the closest Emergency Room. Call 911 if necessary. 04/19/231952 <Electronically signed by Alejandra Vela DO> Cosigner Signature (if applicable): CC: Jonathan Dillard MD ~ Signed [facility] Work Phone: 1(278) 561-578104-14-[address] Jaime [facility] February 25, 2023 11:39am Note Date/Time February 25, 2023 11: 37am [facility] Medical Records Department [address] [place] [address] [facility] Care MR#: [id number] Acct: [id number] Name: POLI RAMIREZ Rep #:[id number] : 1950 72 From: Pratima Jaime MD PCP: ARLENE Edmonds Status:ADM I N Certification of patient admission REQUIRED AT TIME OF ADMISSION. I CERTIFY THAT POST-HOSPITAL ECF SERVICES ARE REQUIRED TO BE GIVEN ON AN IN-PATIENT BASIS BECAUSE OF THE ABOVE NAMED PATIENT'S NEED FOR [facility] CARE ON A CONTINUING BASIS FOR THE CONDITION(S) FOR WHICH HE/SHE WAS RECEIVING IN-PATIENT HOSPITAL SERVICES PRIOR TO HIS/HER TRANSFER TO THE [facility]. 02/25/23 1139<Electronically signed by Pratima Jaime MD> [...] displaced fracture of cervical vertebra resulting in senior care placement, VTE presented to [facility] 02/18/23 due to unresponsiveness. She was found unresponsive by the senior care where she lived. She was found to [...] to schedule your hospital follow-up appointment (ph [phone]) -Weigh yourself every day. A sudden weight [...] Your Visit: Low oxygen levels Attending Provider: Pratmia Jaime Primary Care Provider: Barber Carlisle NP Consulting Providers: Serge Banks ; Ajit Mcgill ; Martín Monique ; Krzysztof Pennington ; Viji Richey SPORTS SPECIALIST ; Rebecca Resendiz ; Thomas Ahumada ; [...] to schedule your hospital follow-up appointment ( [phone]) -Weigh yourself every day. A sudden weight [...] Continued bisacodyl 10 mg suppository 10 mg VA DAILY PRN cranberry 400 mg capsule 400 [...] hospital follow-up appointment )) Barber Carlisle NP, SPORTS SPECIALIST-C [Primary Care Provider] - Within 1 Week Disposition Disposition (needs filled in before D/C Order can be placed): Intermediate Facility 02/25/23 1132 <Electronically signed by Pratima Jaime MD> Cosigner Signature (if applicable): CC: SPORTS SPECIALIST-C Viji Richey; SPORTS SPECIALIST-C Barber Carlisle; Dr. Serge Banks MD; Dr. Hernando Padron MD; Dr. Ajit Mcgill DO; Dr. Thomas Ahumada MD; Dr. Rebecca Resendiz DO; Dr. Martín Monique MD; Dr. Krzysztof Pennington MD ~ [facility] Work Phone: [phone] Jaime [facility] February 24, 2023 3:21pm Note Date/Time February 24, 2023 3:2 1pm [facility] Medical Records Department [address] [place] [address] [place] [address] Progress Note - Hospitalist 02/24/23 7175 MR#: [id number] Acct: [id number] Name: POLI RAMIREZ Rep #:[id number] : 1950 72 From: Pratima Jaime MD PCP: Barber Carlisle SPORTS SPECIALIST-Andrea Status:ADM I N Location: [place] [address] Reason for Visit Reason for Visit: Diagnoses [...] 80.1 H, Lymph % (Auto) 12.6 L, Towner % (Auto) 5.1, Eos % (Auto) 1.5, [...] documentation, 30minutes Charges/Coding Visit Charges Inpatient E&M: 76203 Subs Hosp L2 02/24/23 1521 <Electronically signed by Pratima Jaime MD> Cosigner Signature (if applicable): CC: ~ Signed [facility] Work Phone: [phone]) 942-320604-12-[address] Jaime [facility] February 23, 2023 2:03pm Note Date/Time February 23, 2023 10: 52am [facility] Medical Records Department [address] [place] [address] Progress Note - Hospitalist 02/23/23 1051 MR#: [id number] Acct: [id number] Name: POLI RAMIREZ Rep #:[id number] : 1950 72 From: Pratima Jaime MD PCP: ARLENE Edmonds Status:ADM I N Location: [place] [address] Reason for Visit Reason for Visit: Diagnoses [...] (Auto) 78.1 H, Lymph % (Auto) 13.7L, Towner % (Auto) 6.1, Eos % (Auto) 1.5, [...] documentation, 30minutes Charges/Coding Visit Charges Inpatient E&M: 69935 Subs Hosp L2 02/23/23 1403 <Electronically signed by Pratima Jaime MD> Cosigner Signature (if applicable): CC: ~ Signed [facility] Work Phone: 1(866) 396-555404-12-[address] Gonzalez [facility] February 23, 2023 9:38am Note Date/Time February 23, 2023 9:3 8am [facility] Medical Records Department [address] [place] [address] Progress Note - Cardiology 02/23/2335 MR#: [id number] Acct: [id number] Name: POLI RAMIREZ Rep #:[id number] : 1950 72 From: Miroslava Gonzalez MD PCP: ARLENE Edmonds Status:ADM I N Location: [place] [address] Subjective Subjective No chest pain or shortness [...] (Auto) 78.1 H, Lymph % (Auto) 13.7L, Towner % (Auto) 6.1, Eos % (Auto) 1.5, [...] 78.1 H, Lymph % (Auto) 13.7 L, Towner % (Auto) 6.1, Eos % (Auto) 1.5, [...] (4) Anemia: PLAN: Hemoglobin actually improved. 02/23/23 0922 <Electronically signed by Miroslava Gonzalez MD> Cosigner Signature (if applicable): CC: ~ Signed [facility] Work Phone: [phone]) [phone] Banks [facility] February 22, 2023 2:54pm Note Date/Time February 22, 2023 8:3 6am [facility] Medical Records Department [address] [place] [address] Progress Note - Water Control Supervisor 02/22/23 0832 MR#: [id number] Acct: [id number] Name: POLI RAMIREZ Rep #:[id number] : 1950 72 From: Serge Banks MD PCP: Barber Carlisle, SPORTS SPECIALIST-C Status:ADM I N Location: ICU ICU03-1 Assessment [...] 82.0 H, Lymph % (Auto) 9.4 L, Towner % (Auto) 6.6, Eos % (Auto) 1.6, [...] affect normal Charges/Coding Visit Charges Inpatient E&M: 28999 Subs Hosp L2 02/22/23 9568 <Electronically signed by Serge Banks MD> Cosigner Signature (if applicable): CC: ~ Signed [facility] Work Phone: [phone]) 533-664104-11-[address] Gonzalez [facility] February 22, 2023 9:26am Note Date/Time February 22, 2023 9:2 6am [facility] Medical Records Department [address] [place] [address] Progress Note - Cardiology 02/22/23921 MR#: [id number] Acct: [id number] Name: POLI RAMIREZ Rep #:[id number] : 1950 72 From: Miroslava Gonzalez MD [...] 82.0 H, Lymph % (Auto) 9.4 L, Towner % (Auto) 6.6, Eos % (Auto) 1.6, [...] 82.0 H, Lymph % (Auto) 9.4 L, Towner % (Auto) 6.6, Eos % (Auto) 1.6, [...] Cosigner Signature (if applicable): CC: ~ Signed [facility] Work Phone: 1([phone]) 286-148604-11-[address] Jaime [facility] February 22, 2023 8:30am Note Date/Time February 22, 2023 8:3 0am [facility] Medical Records Department [address] [place] [address] Progress Note - Hospitalist 02/22/23819 MR#: [id number] Acct: [id number] Name: POLI RAMIREZ Rep #:[id number] : 1950 72 From: Pratima Jaime MD PCP: Barber Carlisle, SPORTS SPECIALIST-C Status:ADM I N Location: ICU ICU03-1 Reason [...] 82.0 H, Lymph % (Auto) 9.4 L, Towner % (Auto) 6.6, Eos % (Auto) 1.6, [...] documentation, 30minutes Charges/Coding Visit Charges Inpatient E&M: 77555 Subs Hosp L2 02/22/23 0830 <Electronically signed by Pratima Jaime MD> Cosigner Signature (if applicable): CC: ~ Signed [facility] Work Phone: [phone] Jaime [facility] February 21, 2023 4:59pm Note Date/Time February 21, 2023 7:0 7am [facility] Medical Records Department [address] [place] [address] Progress Note - Hospitalist 02/21/23706 MR#: [id number] Acct: [id number] Name: POLI RAMIREZ Rep #:[id number] : 1950 72 From: Pratima Jaime MD PCP: ARLENE Edmonds Status:ADM I N Location: ICU [place] [address] Reason for Visit Reason for Visit: Diagnoses [...] 79.0 H, Lymph % (Auto) 14.1 L, Towner % (Auto) 5.3, Eos % (Auto) 0.7, [...] Bilirubin 0.80, AST 21, ALT 24, Alkaline Atwdrsnytvx56, Total Protein 5.6 L, Albumin 2.2 L, [...] documentation, 30minutes Charges/Coding Visit Charges Inpatient E&M: 26896 Subs Hosp L2 02/21/23 9929 <Electronically signed by Pratima Jaime MD> Cosigner Signature (if applicable): CC: ~ Signed [facility] Work Phone: [phone] 518-156904-10-[address] Banks [facility] February 21, 2023 4:00pm Note Date/Time February 21, 2023 8:0 3am [facility] Medical Records Department [address] [place] [address] Progress Note - Water Control Supervisor 02/21/23 0752 MR#: [id number] Acct: [id number] Name: POLI RAMIREZ Rep #:[id number] : 1950 72 From: Serge Banks MD [...] 79.0 H, Lymph % (Auto) 14.1 L, Towner % (Auto) 5.3, Eos % (Auto) 0.7, [...] Bilirubin 0.80, AST 21, ALT 24, Alkaline Qnrtjoageyl82, Total Protein 5.6 L, Albumin 2.2 L, [...] and affect normal Charges/Coding Procedures Hospitalists Procedures: 61251 Critial Care 1st Hr 02/21/23 1600 <Electronically signed by Serge Banks MD> Cosigner Signature (if applicable): CC: ~ Signed [facility] Work Phone: [phone]) 504-145504-10-[address] Gonzalez [facility] February 21, 2023 9:54am Note Date/Time February 21, 2023 9:5 4am [facility] Medical Records Department [facility] [place] [address] Progress Note - Cardiology 02/21/23 0951 MR#: [id number] Acct: [id number] Name: POLI RAMIREZ Rep #:[id number] : 1950 72 From: Miroslvaa Gonzalez MD PCP: Barber Carlisle SPORTS SPECIALIST-C Status:ADM I N Location: ICU ICU03-1 Subjective [...] 79.0 H, Lymph % (Auto) 14.1 L, Towner % (Auto) 5.3, Eos % (Auto) 0.7, [...] Bilirubin 0.80, AST 21, ALT 24, Alkaline Ohswxyorfpg05, Total Protein 5.6 L, Albumin 2.2 L, [...] 52.0 H ABG pO2 87 92 99 Jovno Test Positive Positive Respiration Rate 15 15 [...] 79.0 H, Lymph % (Auto) 14.1 L, Towner % (Auto) 5.3, Eos % (Auto) 0.7, [...] Cosigner Signature (if applicable): CC: ~ Signed [facility] Work Phone: [phone] Consult note Author Armani Napier [facility] February 21, 2023 4:07am Note Date/Time February 21, 2023 4:0 7am [facility] Medical Records Department [address] [place] [address] [place] [address] Pharmacokinetic/Renal -Consult 02/21/23 0406 MR#: [id number] Acct: [id number] Name: POLI RAMIREZ Rep #:[id number] : 1950 72 From: Armani Valdez od PCP: Barber Carlisle SPORTS SPECIALIST-Andrea Status:ADM I N Y Location: ICU ICU03-1 [...] Signature (if applicable): Date CC: ~ Signed [facility] Work Phone: [phone] 281-144904-09-[address] Monique [facility] February 20, 2023 4:59pm Note Date/Time February 20, 2023 4:37 pm [facility] Medical Records Department [address] [place] [address] Progress Note - Water Control Supervisor 02/20/23 1634 MR#: [id number] Acct: [id number] Name: POLI RAMIREZ Rep #:[id number] : 1950 72 From: Martín Monique MD PCP: Barber Carlisle, SPORTS SPECIALIST-Andrea Status:ADM I N Location: ICU ICU03-1 Assessment [...] performed. [place] [address] Subjective Subjective Intubated and sedated on ventilator, [...] (Auto) 80.9 H, Lymph % (Auto) 11.6L, Towner % (Auto) 6.4, Eos % (Auto) 0.2, [...] 6:54 EDT Reading Location ID and State: [address] [place] [address] Tel , Service support , Rhythm Strip Rhythm Strip: Sinus Rhythm Rate: 95 Ectopy: None Physical Exam Narrative 10 system exam done. Unchanged from yesterday. Charges/Coding Procedures Hospitalists Procedures: 90854 Critial Care 1st Hr 02/20/23 1659 <Electronically signed by Martín Monique MD> Cosigner Signature (if applicable): CC: ~ Signed [facility] Work Phone: [phone] 178-324004-09-[address] Gonzalez [facility] February 20, 2023 10:38am Note Date/Time February 20, 2023 10:3 8am [facility] Medical Records Department [address] [place] [address] [place] [address] Progress Note - Cardiology 02/20/23 1035 MR#: [id number] Acct: [id number] Name: POLI RAMIREZ Rep #:[id number] : 1950 72 From: Miroslava Gonzalez MD PCP: Barber Carlisle, SPORTS SPECIALIST-Andrea Status:ADM I N Location: ICU ICU03-1 Subjective [...] (Auto) 80.9 H, Lymph % (Auto) 11.6L, Towner % (Auto) 6.4, Eos % (Auto) 0.2, [...] 80.9 H, Lymph % (Auto) 11.6 L, Towner % (Auto) 6.4, Eos % (Auto) 0.2, [...] Cosigner Signature (if applicable): CC: ~ Signed [facility] Work Phone: [phone] 560-743004-09-[address] Padron [facility] February 20, 2023 8:46am Note Date/Time February 20, 2023 7:12 am [facility] Medical Records Department [address] [place] [address] Progress Note - Hospitalist 02/20/23711 MR#: [id number] Acct: [id number] Name: POLI RAMIREZ Rep #:[id number] : 1950 72 From: Hernando Padron MD [...] (Auto) 80.9 H, Lymph % (Auto) 11.6L, Towner % (Auto) 6.4, Eos % (Auto) 0.2, [...] 6:54 EDT Reading Location ID and State: [facility] [place] Tel , Service support , Rhythm Strip [...] 45 Minutes Charges/Coding Visit Charges Inpatient E&M: 94534 Subs Hosp L2 02/20/23 0846 <Electronically signed by Hernando Padron MD> Cosigner Signature (if applicable): CC: ~ Signed [facility] Work Phone: [phone] Padron [facility] February 20, 2023 7:12am Note Date/Time February 19, 2023 5:15 pm [facility] Medical Records Department [address] [place] [address] Pharmacokinetic/Renal -Consult 02/19/23 1711 MR#: [id number] Acct: [id number] Name: POLI RAMIREZ Rep #:[id number] : 1950 72 From: Gretchen Lance PCP: [...] Date Hernando Padron MD CC: ~ Signed [facility] Work Phone: [phone] Monique [facility] February 19, 2023 1:55pm Note Date/Time February 19, 2023 10:4 7am [facility] Medical Records Department [address] [place] [address] Progress Note - Water Control Supervisor 02/19/23 1047 MR#: [id number] Acct: [id number] Name: POLI RAMIREZ Rep #:[id number] : 1950 72 From: Martín Monique MD [...] performed. [place] [address], [address]. Subjective Subjective Subjective patient is mildly sedated [...] 79.0 H, Lymph % (Auto) 13.9 L, Towner % (Auto) 6.5, Eos % (Auto) 0.2, [...] Cosigner Signature (if applicable): CC: ~ Signed [facility] Work Phone: [phone]) [phone] Gonzalez [facility] February 19, 2023 11:57am Note Date/Time February 19, 2023 11:5 6am [facility] Medical Records Department [address] [place] [address] Consultation - Cardiology 02/19/23 1146 MR#: [id number] Acct: [id number] Name: POLI RAMIREZ Rep #:[id number] : 1950 72 From: Miroslava Gonzalez MD [...] unable to provide any history. [facility] Medical History (Updated 02/19/23 @ 11:53 by [...] bisacodyl 10 mg rectal suppository 10 mg VA DAILY PRN 11/11/22 [History Last Taken Unknown] [...] 00:[address] Rebecca Resendiz DO) housing: senior care Smoking Status: Former smoker alcohol intake: never [...] 79.0 H, Lymph % (Auto) 13.9 L, Towner % (Auto) 6.5, Eos % (Auto) 0.2, [...] Gas Notified Whom Blood Gas Notified Time 7906 Rhythm Strip Rhythm Strip: Sinus Rhythm Rate: [...] 79.0 H, Lymph % (Auto) 13.9 L, Towner % (Auto) 6.5, Eos % (Auto) 0.2, [...] Gonzalez MD> Cosigner Signature (if applicable): CC: SPORTS SPECIALIST-Andrea Richey; SPORTS SPECIALIST-C Barber Carlisle; Dr. Serge Banks MD; Dr. Hernando Padron MD; Dr. Ajit Mcgill DO; Dr. Thomas Ahumada MD; Dr. Rebecca Resendiz DO; Dr. Martín Monique MD; Dr. Krzysztof Pennington MD~ Signed [facility] Work Phone: [phone] Padron [facility] February 19, 2023 8:28am Note Date/Time February 19, 2023 7:11 am [facility] Medical Records Department [address] [place] [address] Progress Note - Hospitalist 02/19/23709 MR#: [id number] Acct: [id number] Name: POLI RAMIREZ Rep #:[id number] : 1950 72 From: Hernando Padron MD [...] 79.0 H, Lymph % (Auto) 13.9 L, Towner % (Auto) 6.5, Eos % (Auto) 0.2, [...] 55 Minutes Charges/Coding Visit Charges Inpatient E&M: 91500 Subs Hosp L3 02/19/2328 <Electronically signed by Hernando Padron MD> Cosigner Signature (if applicable): CC: ~ Signed [facility] Work Phone: [phone] Monique [facility] February 18, 2023 8:01pm Note Date/Time February 18, 2023 9:53 am [facility] Medical Records Department [address] [place] [address] Consultation - Water Control Supervisor 02/18/2353 MR#: [id number] Acct: [id number] Name: POLI RAMIREZ Rep #:[id number] : 1950 72 From: Martín Monique MD [...] Monique MD> Cosigner Signature (if applicable): cc: SPORTS SPECIALIST-C Viji Richey; SPORTS SPECIALIST-C Barber Carlisle; Dr. Serge Banks MD; Dr. [...] Thank you for consulting [facility] for critical care. We will follow the patient with you.. Martín Monique MD [facility] HPI Consult Data Date of Consult: 02/18/23 HPI Narrative Reason for Consultation: Respiratory failure on mechanical ventilation, chronic hypercarbia HPI Narrative: POLI RAMIREZ, is a unfortunate 72-year-old woman who was at the senior care for rehab after neck fracture was found unresponsive at her senior care with SPO2 70s GCS 3.? No response [...] GERD, frequent falls, insomnia, obstructive sleep apnea, LA, generalized weakness, displaced fracture of the sixth and seventh cervical vertebrae, pancytopenia, history of breast cancer, nicotine dependence, osteoarthritis both shoulders, type 2 diabetes with diabetic neuropathy, impaired mobility, venous insufficiency, urinary incontinence. Her home medications were reviewed. Surgical history: Left breast lumpectomy, C-spine surgery, cholecystectomy. Family history is noncontributory.? Social history she is a former smoker. [facility] Medical History (Updated 02/18/23 @ 12:37 by [...] bisacodyl 10 mg rectal suppository 10 mg VA DAILY PRN 11/11/22 [History Last Taken Unknown] [...] 00:[address] Rebecca Resendiz DO) housing: senior care Smoking Status: Former smoker alcohol intake: never [...] 87.0 H, Lymph % (Auto) 6.6 L, Towner % (Auto) 3.6, Eos % (Auto) 0.2, [...] Sl. Cloudy, Urine pH 5.0, Ur Specific [place] 1.030, Urine Protein 100 H, Urine Glucose [...] 88.6 H, Lymph % (Auto) 4.5 L, Towner % (Auto) 5.7, Eos % (Auto) 0.0, [...] ED MD MONIQUE Blood Gas Notified Time 7785 Rhythm Strip Rhythm Strip: Sinus Rhythm Rate: [...] 2:02 EDT , Charges/Coding Procedures Hospitalists Procedures: 10835 [facility] 1st Hr 02/18/23 1241 <Electronically signed by Martín Monique MD> Cosigner Signature (if applicable): CC: SPORTS SPECIALISTGiancarlo Richey; ARLENE Carlisle; Dr. Serge Banks MD; Dr. Ajit Mcgill DO; Dr. Thomas Ahumada MD; Dr. Rebecca Resendiz DO; Dr. Martín Monique MD; Dr. Krzysztof Pennington MD~ Signed [facility] Work Phone: 1(832) 525-810004-07-[address] Padron [facility] February 18, 2023 8:24am Note Date/Time February 18, 2023 7:16 am [facility] System Medical Records Department [address] [place] [address] Progress Note - Hospitalist 02/18/23711 MR#: [id number] Acct: [id number] Name: POLI RAMIREZ Rep #:[id number] : 1950 72 From: Hernando Padron MD [...] 87.0 H, Lymph % (Auto) 6.6 L, Towner % (Auto) 3.6, Eos % (Auto) 0.2, [...] Sl. Cloudy, Urine pH 5.0, Ur Specific Salida 1.030, Urine Protein 100 H, Urine Glucose [...] 88.6 H, Lymph % (Auto) 4.5 L, Towner % (Auto) 5.7, Eos % (Auto) 0.0, [...] Notified Whom ED Blood Gas Notified Time 2243 Radiography Diagnostic Testing: Radiology Impression Brain CT [...] 55 Minutes Charges/Coding Visit Charges Inpatient E&M: 57215 Subs Hosp L3 02/18/23 0824 <Electronically signed by Hernando Padron MD> Cosigner Signature (if applicable): CC: ~ Signed [facility] Work Phone: 1(818) 959-785004-07-2023 Consult note Author Armani Napier [facility] February 18, 2023 4:15am Note Date/Time February 18, 2023 4:15 am [facility] Medical Records Department [address] [place] [address] Pharmacokinetic/Renal -Consult 02/18/23413 MR#: [id number] Acct: [id number] Name: POLI RAMIREZ Rep #:[id number] : 1950 72 From: Armani Valdez od PCP: Barber Carlisle SPORTS SPECIALISTGiancarlo Status:ADM I N Y Location: ICU ICU03-1 [...] Signature (if applicable): Date CC: ~ Signed [facility] Work Phone: 1(880) 648-214404-07-2023 History and physical note Author Dr. Resendiz [facility] February 18, 2023 1:48am Note Date/Time February 18, 2023 12:3 2am [facility] System Medical Records Department [address] [place] [address] H&P Exam - Hospitalist 02/18/23 0029 MR#: [id number] Acct: [id number] Name: POLI RAMIREZ Rep #:[id number] : 1950 72 From: Rebecca Resendiz DO PCP: ARLENE Edmonds Status:ADM I N Location: ICU [place] [address] HPI - General General Date of Admission: 02/18/23 Date of Service: 02/18/23 Chief Complaint: Unresponsiveness HPI Narrative POLI RAMIREZ, is a 72 F who presented to the emergency department at [facility] secondary to unresponsiveness. The patient was found to be unresponsive by the senior care staff at where she lives. Upon presentation [...] EKG showed normal sinus rhythm with normal VA interval however she has slightly prolonged QTc. No signs of ischemic changes were noted. [facility] Medical History Anemia Atherosclerotic heart disease Chronic [...] bisacodyl 10 mg rectal suppository 10 mg VA DAILY PRN 11/11/22 [History Last Taken Unknown] [...] 00:[address] Rebecca Resendiz DO) housing: senior care Smoking Status: Former smoker alcohol intake: never [...] 87.0 H, Lymph % (Auto) 6.6 L, Towner % (Auto) 3.6, Eos % (Auto) 0.2, [...] Sl. Cloudy, Urine pH 5.0, Ur Specific Sal[place] 1.030, Urine Protein 100 H, Urine Glucose [...] the morning Charges/Coding Visit Charges Inpatient E&M: 03905 Init Hosp L3 02/18/23 0148 <Electronically signed by Rebecca Resendiz DO> Cosigner Signature (if applicable): CC: ARLENE Carlisle; Dr. Rebecca Resendiz DO~ Signed [facility] Work Phone: 1(117) 138-463404-07-[address] Tsai [facility] February 18, 2023 12:19am Note Date/Time February 17, 2023 10:3 4pm [facility] Medical Records Department [address] [place] [address] Emergency Department Summary 02/17/23 MR#: [id number] Acct: [id number] Name: POLI RAMIREZ Rep #:[id number] : 1950 72 From: Ellis Tsai MD PCP: ARLENE Edmonds Status:REG E R Location: ED HPI History of Present Illness Chief Complaint: Unresponsive Informant: EMS Narrative Narrative: Patient brought from local senior care found unresponsive by senior care staff. Barely breathing, hypoxic in the 70s [...] [facility] 60[facility]. Last seen normal about 3 hours prior to evaluation here. Apparently she is in a senior care for rehab after a neck fracture. She does not have any collar or cervical spine hardware. EMS also states that family wasapparently there yesterday, and the senior care staff was suspicious that they may be in the drugs. [facility] Medical History (Updated 02/18/23 @ [...] bisacodyl 10 mg rectal suppository 10 mg VA DAILY PRN 11/11/22 [History Last Taken Unknown] [...] 87.0 H Lymph % (Auto) 6.6 L Towner % (Auto) 3.6 Eos % (Auto) 0.2 [...] Sl. Cloudy Urine pH 5.0 Ur Specific [place] 1.030 Urine Protein 100 H Urine Glucose [...] (Auto) Neut % (Auto) Lymph % (Auto) Towner % (Auto) Eos % (Auto) Baso % [...] Color Urine Clarity Urine pH Ur Specific [place] Urine Protein Urine Glucose (UA) Urine Ketones [...] Management Discussion w/another healthcare provider: Hospitalist and Global Marketing Manager (javi mcgill) Procedures Intubations Intubation Method: orotracheal [...] pulmonary disease) Disposition Disposition: Acute Care Hospital [facility] What to do if you have Problems For any increased pain, shortness of breath, bleeding, nausea or vomiting, chestpain, or any unexpected problems, contact your Primary Care Provider. Call [facility] ([phone]) or report to the closest Emergency Room. Call 911 if necessary. 02/18/23 0019 <Electronically signed by Ellis Tsai MD> Cosigner Signature (if applicable): CC: ARLENE Carlisle ~ Signed [facility] Work Phone: 1(134) 505-555404-07-[address] Tsai [facility] February 18, 2023 12:19am Note Date/Time February 17, 2023 10:3 4pm [facility] System Medical Records Department [address] [place] [address] Emergency Department Summary 02/17/23 MR#: [id number] Acct: [id number] Name: POLI RAMIREZ Rep #:[id number] : 1950 72 From: Ellis Tsai MD PCP: ARLENE Edmonds Status:REG E R Location: ED HPI History of Present Illness Chief Complaint: Unresponsive Informant: EMS Narrative Narrative: Patient brought from local senior care found unresponsive by senior care staff. Barely breathing, hypoxic in the 70s [...] ox 60[facility] and patient not breathing. Last seen normal about 3 hours prior to evaluation here. Apparently she is in a senior care for rehab after a neck fracture. She does not have any collar or cervical spine hardware. EMS also states that family wasapparently there yesterday, and the senior care staff was suspicious that they may be in the drugs. [facility] Medical History (Updated 02/18/23 @ [...] bisacodyl 10 mg rectal suppository 10 mg VA DAILY PRN 11/11/22 [History Last Taken Unknown] [...] 87.0 H Lymph % (Auto) 6.6 L Towner % (Auto) 3.6 Eos % (Auto) 0.2 [...] Sl. Cloudy Urine pH 5.0 Ur Specific [place] 1.030 Urine Protein 100 H Urine Glucose [...] (Auto) Neut % (Auto) Lymph % (Auto) Towner % (Auto) Eos % (Auto) Baso % [...] Color Urine Clarity Urine pH Ur Specific [place] Urine Protein Urine Glucose (UA) Urine Ketones [...] 0:01 EDT Reading Location ID and State: [facility] / [place] Tel , Service support , Rhythm Strip Rhythm Strip: Sinus Rhythm Rate: 95 Ectopy: None EKG Initial EKG: Attestation: I personally reviewed and interpreted this EKG as follows: Interpretation: Sinus Rhythm, No Acute Injury Pattern and LBBB Prior EKG tracings: available for review Prior: Unchanged Management Discussion w/another healthcare provider: Hospitalist and Global Marketing Manager (javi mcgill) Procedures Intubations Intubation Method: orotracheal [...] pulmonary disease) Disposition Disposition: Acute Care Hospital [facility] What to do if you have Problems For any increased pain, shortness of breath, bleeding, nausea or vomiting, chestpain, or any unexpected problems, contact your Primary Care Provider. Call [facility] ([phone]) or report to the closest Emergency Room. Call 911 if necessary. 02/18/23 0019 <Electronically signed by Ellis Tsai MD> Cosigner Signature (if applicable): CC: ARLENE Carlisle ~ Signed [facility] Work Phone: 1(453) 719-645509-13-2022 Hospital Discharge instructions Patient Education 07/27/2022 11:52:16 [...] are safe for you. General instructions Take lfcq-ite-dhimpar and prescription medicines only as told by [...] 09/17/2005 Document Revised: 10/13/2018 Document Reviewed: 08/04/2017 [employer] Patient Education 2020 [employer]. Follow Up Care 07/11/2022 11:22:15 With[facility] [phone] skilled Address:Unknown When:1-2 days With:BARBER CARLISLE Address: [address] [place] [facility] [place] [phone] Business (1) When:1-2 days With:BYRON STUBBS, TRACE Sprague, Neurosurgery Address: [address] [place] [address] [phone] When:08/10/2022 11:00:00 [facility] 09-13-2022 Note Discharge Instructions Thank you for allowing [facility] to assist you with your healthcare needs. [...] results to FREDY Edmonds Neck Xray at [facility], Ground floor Radiology Dept on 08/10/2022 [...] Op 08/10/2022 11:00 AM EDT Neurosurgery [address] [address] Follow Up Appointments Follow Up with BYRON STUBBS, TRACE Sprague, Neurosurgery When 08/10/2022 11:00 AM EDT Where: [address] [address] [phone] Follow Up with [facility] [phone] skilled When Within 1-2 days Follow Up with BARBER CARLISLE When Within 1-2 days Where: [address] [place] [address] [phone] Business (1) The Following Activity and Diet [...] The extended-release form of oxycodone is for iiypos-dhk-bjajr treatment of pain and should not be [...] against the law. Stop taking all other wzjkvx-xpi-ddcxu opioid pain medicines when you start taking [...] may report side effects to FDA at 7-940-NUW-4940. What other drugs will affect oxycodone? You [...] drugs may affect oxycodone. This includes prescription comwcpv-iqc-bisygds medicines, vitamins, and herbal products. Not all [...] to ensure that the information provided by [employer]. ('Mult[employer]') is accurate, up-to-date, and complete, but no guarantee is made to that effect. Drug information contained herein may be time sensitive. [employer] information has been compiled for use by healthcare practitioners and consumers in the [place] and therefore [employer] does not warrant that uses outside of the [place] are appropriate, unless specifically indicated otherwise. [employer] drug information does not endorse drugs, diagnose patients or recommend therapy. [employer] drug information isan informational resource designed to [...] effective or appropriate for any given patient. [employer] does not assume any responsibility for any aspect of healthcare administered with the aid of information [employer] provides. The information contained herein is not intended to cover all possible uses, directions, precautions, warnings, drug interactions, allergic reactions, or adverse effects. If you have questions about the drugs you are taking, check with your doctor, nurse or pharmacist. Copyright 9371-8189 Ch[employer]. Version: 14.02. Revision Date: 12/11/2020. Education Materials [...] are safe for you. General instructions Take lrak-sze-keymocl and prescription medicines only as told by [...] 09/17/2005 Document Revised: 10/13/2018 Document Reviewed: 08/04/2017 [employer] Patient Education 2020 [employer] Additional Information VACCINATE! IT SAVES LIVES! Members of the community who have not yet received the COVID-19 vaccine and would like to receive it can visit one of [facility] vaccine clinics. There are many vaccine clinic locations within the [facility]. For locations and available times, please visit https://gettheshot.coronavirus.[place].gov/. It is important to note that some COVID mobile vaccine clinics are held outdoors and may be canceled in rainy or stormy conditions. To learn more about pediatric vaccinations (ages 5-11), we invite you to visit the [facility] webpage. https://www.[facility].org/pages/8480-Fncaz-Vvbabvkguea-Riasnnwyvz-Cxmdq-Bmi stions.htmlTo learn more about the COVID-19 vaccine, we invite you to visit the [employer] website for a list of frequently asked questions. https://Proteros biostructures/assets/Xmvmnqlh-vpr-Nmydhirn/cfbqz-Gixnclh-Dcqeekggwg _Asked-Questions.pdf [facility] Patient Portal Access Instructions: Stay connected with your healthcare team and access your personal medical information anytime with the [facility] [facility] Patient Portal.If you would like a full copy of your medical records, please contact the [facility] Medical Records Department, Tuesday through Tuesday between 8a.m. and 4:30p.m. Please follow the directions below to access the portal: 1.Access the email account you provided upon registration to the [facility].2.Look for an invitation email from [facility].3.Open the email and access the invitation link: Accept Invitation to [facility]4.Fill in the required quijano to create your account. Sign into [email or web address] with your username and password that you [...] you will allow to register on the [facility] Patient Portal for access to your information. You can also access the [facility] Patient Portal on the Stylitics marcy. Simply click on "Health Records" under "[facility] ([facility])" and then click on the Vaishali logo. [...] Call your local pharmacy or go to http://bit.iCAD/6S7Wo6u to find one close to you.3.Make use of household items: Use cat litter or old coffee grounds to dispose medications if other options arenot available. Mix your drugs with these household products, seal them in an airtight container andthrow it into the garbage. Call [facility]: [phone] to be sure your drugs can be [...] that I should contact my d octor. Patient/Compressor Operator Adjuster Signature: Date/Time: Relationship to Patient: Witness Name/Signature: Date/Time: [facility]4541 Note Discharge Instructions Thank you for allowing [...] results to FREDY Edmonds Neck Xray at [facility], [facility] floor Radiology Dept on 08/10/2022 at 10:30am. [...] Op 08/10/2022 11:00 AM EDT Neurosurgery [address] [address] Follow Up Appointments Follow Up with BYRON STUBBS, TRACE Sprague, Neurosurgery When 08/10/2022 11:00 AM EDT Where: [address] [address] [phone] Follow Up with [facility] [phone] skilled When Within 1-2 days Follow Up with BARBER CARLISLE When Within 1-2 days Where: [address] [facility] [place] [address] [phone] Business (1) The Following Activity and Diet [...] to receive it can visit one of [facility] vaccine clinics. There are many vaccine clinic locations within the [facility]. For locations and available times, please visit https://gettheshot.coronavirus.[place].gov/. It is important to note that some COVID mobile vaccine clinics are held outdoors and may be canceled in rainy or stormy conditions. To learn more about pediatric vaccinations (ages 5-11), we invite you to visit the [facility] webpage. https://www.[facility].org/pages/1648-Kohpk-Rzfqifnhhaq-Hbhcvhiqmt-Vwvrj-Bcg stions.htmlTo learn more about the COVID-19 vaccine, we invite you to visit the [facility] website for a list of frequently asked questions. https://vaishali.org/assets/Xcsfotjf-dfd-Byarifca/qxovn-Dhwfsvc-Xktfddkkzc _Asked-Questions.pdf [facility] Patient Portal Access Instructions: Stay connected with your healthcare team and access your personal medical information anytime with the [facility] Patient Portal.If you would like a full copy of your medical records, please contact the [facility] Medical Records Department, Tuesday through Tuesday between 8a.m. and 4:30p.m. Please follow the directions below to access the portal: 1.Access the email account you provided upon registration to the hospital.2.Look for an invitation email from [facility].3.Open the email and access the invitation link: Accept Invitation to [facility]4.Fill in the required quijano to create your account. Sign into [email or web address] with your username and password that you [...] you will allow to register on the [facility] Patient Portal for access to your information. You can also access the [facility] Patient Portal on the Massage Envy. Simply click on "Health Records" under "HealthData" and then click on the pMediaNetwork logo. HOW TO SAFELY DISPOSE OF PRESCRIPTION [...] Call your local pharmacy or go to http://GOSO.iCAD/5A0Fj2e to find one close to you.3.Make use of household items: Use cat litter or old coffee grounds to dispose medications if other options arenot available. Mix your drugs with these household products, seal them in an airtight container andthrow it into the garbage. Call [facility]: [phone] to be sure your drugs can be [...] that I should contact my d zulmaor. Patient/Compressor Operator Adjuster Signature: Date/Time: Relationship to Patient: Witness Name/Signature: Date/Time: [id number] Note Discharge Instructions Thank you for allowing [...] results to FREDY Edmonds Neck Xray at [facility], Ground floor Radiology Dept on 08/10/2022 [...] Op 08/10/2022 11:00 AM EDT Neurosurgery [address] [address] Follow Up Appointments Follow Up with BYRON STUBBS, TRACE Sprague, Neurosurgery When 08/10/2022 11:00 AM EDT Where: [address] [address] [phone] Follow Up with [facility] [phone] skilled When Within 1-2 days Follow Up with BARBER CARLISLE When Within 1-2 days Where: [address] [place] [phone] Business (1) The Following Activity and Diet [...] to receive it can visit one of [facility] vaccine clinics. There are many vaccine clinic locations within the [facility]. For locations and available times, please visit https://[email or web address].[place].[facility]/. It is important to note that some COVID mobile vaccine clinics are held outdoors and may be canceled in rainy or stormy conditions. To learn more about pediatric vaccinations (ages 5-11), we invite you to visit the [facility] webpage. https://www.[facility].org/pages/4350-Bnhtg-Wrydwiqfgjv-Vhcbjmozzv-Uajsr-Pfp stions.htmlTo learn more about the COVID-19 vaccine, we invite you to visit the [facility] website for a list of frequently asked questions. https://vaishali.org/assets/Xhvomdze-xst-Hsluaiun/cclsb-Hnzvhdn-Nvxxjuzmhn _Asked-Questions.pdf [facility] Patient Portal Access Instructions: Stay connected with your healthcare team and access your personal medical information anytime with the [facility] [facility] Patient Portal.If you would like a full copy of your medical records, please contact the [facility] Medical Records Department, Tuesday through Tuesday between 8a.m. and 4:30p.m. Please follow the directions below to access the portal: 1.Access the email account you provided upon registration to the [facility].2.Look for an invitation email from [facility].3.Open the email and access the invitation link: Accept Invitation to [email or web address].Fill in the required quijano to create your account. Sign into [email or web address] with your username and password that you [...] you will allow to register on the [email or web address] Patient Portal for access to your information. You can also access the [facility] Patient Portal on the Massage Envy. Simply click on "Health Records" under "DeskGod" and then click on the pMediaNetwork logo. HOW TO SAFELY DISPOSE OF PRESCRIPTION [...] Call your local pharmacy or go to http://GOSO.iCAD/0I2Bd7e to find one close to you.3.Make use of household items: Use cat litter or old coffee grounds to dispose medications if other options arenot available. Mix your drugs with these household products, seal them in an airtight container andthrow it into the garbage. Call [facility]: [phone] to be sure your drugs can be [...] that I should contact my d octor. Patient/Compressor Operator Adjuster Signature: Date/Time: Relationship to Patient: Witness Name/Signature: Date/Time: [facility] [id number] Note Date of Service 07/26/2022 Neurosurgical CC: Unstable cervical spine injury, post repair POD #13, C2-C7 posterior cervical decompressive laminectomy and C2-T2 posterior cervical instrumented fusion Patient has no new complaints today. She is motivated to mobilize. She is asking when able to be discharged home. I explained she will need half-way care, than goal with home-going. Admits to [...] worsening weakness, remains with slight weakness left ase master mechanic strength and numbness in left hand. Weight [...] fracture of C6 with extension distraction fracture C6-V7hsvnk no change in alignment. XR Spine Cervical [...] NITA MADERA APRN-SILVINO on 07/26/2022 06:15 AM [facility] [id number] Note Date of Service 07/25/2022 Neurosurgical CC: Unstable cervical spine injury, post repair POD #12, C2-C7 posterior cervical decompressive laminectomy and C2-T2 posterior cervical instrumented fusion Patient remains in the hospital awaiting precertification for half-way facility No acute events overnight. Patient has [...] fracture of C6 with extension distraction fracture C6-C4peeyv no change in alignment. XR Spine Cervical [...] NITA MADERA APRN-SILVINO on 07/25/2022 05:40 AM [facility] [id number] Note Date of Service 07/23/2022 Patient reviewed [...] fracture of C6 with extension distraction fracture C6-B3swfek no change in alignment. XR Chest 1 [...] the office visit Discussed case with licensed customs broker. Aware patient remains ready for discharge. Digitally Signed by NITA MADERA APRN-ENTRY LEVEL RECEPTIONIST on 07/24/2022 11:41 AM [facility] CenterSotvzxcm86-30-3214 Note Chief Complaint Pain Subjective Pain under [...] RUBIO MD FACP on 07/23/2022 04:02 PM [facility] [id number] Note Date of Service 07/23/2022 Patient reviewed [...] fracture of C6 with extension distraction fracture C6-U1kurkr no change in alignment. XR Spine Cervical [...] by NITA MADERA on 07/23/2022 06:18 AM [facility] [id number] Note Date of Service 07/23/2022 Patient reviewed [...] fracture of C6 with extension distraction fracture C6-V0auwmt no change in alignment. XR Spine Cervical [...] NITA MADERA APRN-SILVINO on 07/23/2022 06:18 AM [facility] [id number] Note Chief Complaint hypotension Subjective Patient was [...] EDT Digitally Signed by FABIANO RUBIO MD [facility] on 07/22/2022 08:16 PM [facility] CenterLsroprkr69-84-1347 Neurological surgery Progress note Date of Service Addendum by NITA MADERA on July 22, 2022 06:06:28 EDT (Verified) 07/22/2022 Patient cleared for discharge, however still awaiting precertification. No acute events overnight. Patient overall doing well neurologically. Vital signs have remained stable. Internal medicine team has been following, signed off yesterday and cleared for discharge. Shedislikes the Shalnii brace, but has been compliant with use. [...] AM [1] [1] Discharge Summary; ARYAN VAZ BRICK STACKER-ENTRY LEVEL RECEPTIONIST 07/21/2022 07:15 EDT Digitally Signed by NITA MADERA APRN-ENTRY LEVEL RECEPTIONIST on 07/22/2022 09:56 AM [facility] Discharge summary Date of Service 07/21/2022 Discharge Diagnosis 1. S/P fall, resulting in C6-7 distraction injury with bilateral pedicle fractures ([id number] - PNED) 2. S/P C2-C7 decompressive laminectomy, C2-T2 posterior bone screw/merari fixation and fusion ([id number] - PNED) 3. DM2 (diabetes mellitus, type [...] and face. She was evaluated in the [facility] emergency department, where she was found to [...] She is ready to be discharged to [facility]. Her discharge instructions and restrictions been provided to [facility]. Her follow-up appointment has been arranged. Allergies [...] fracture of C6 with extension distraction fracture C6-C7ktsiv no change in alignment. XR Chest 1 [...] When 07/27/2022 09:30 AM EDT Where: [address] [facility] [address] [place] [address]- [phone] Follow Up Appointments See above Follow Up [...] Score No qualifying data available. Discharge Disposition [facility] Information Provided To Patient and [facility] Time Spent 15 min Digitally Signed by ARYAN VAZ on 07/21/2022 08:46 AM Digitally Signed by TRACE MATTHEWS MD on 07/21/2022 11:25 AM [facility]Mkxfcnvg18-04-3607 Discharge summary Date of Service 07/21/2022 Discharge Diagnosis 1. S/P fall, resulting in C6-7 distraction injury with bilateral pedicle fractures ([id number] - PNED) 2. S/P C2-C7 decompressive laminectomy, C2-T2 posterior bone screw/merari fixation and fusion ([id number] - PNED) 3. DM2 (diabetes mellitus, type [...] and face. She was evaluated in the [facility] emergency department, where she was found to [...] She is ready to be discharged to [facility]. Her discharge instructions and restrictions been provided to [facility]. Her follow-up appointment has been arranged. Allergies [...] fracture of C6 with extension distraction fracture C6-C1evckr no change in alignment. XR Chest 1 [...] When 07/27/2022 09:30 AM EDT Where: [address] [facility] [address] [place] [address]- [phone] Follow Up Appointments See above Follow Up [...] Score No qualifying data available. Discharge Disposition [facility] Information Provided To Patient and [facility] Time Spent 15 min Digitally Signed by ARYAN VAZ on 07/21/2022 08:46 AM Digitally Signed by TRACE MATTHEWS MD on 07/21/2022 11:25 AM [facility]Akjgsuze29-98-5156 Discharge summary Date of Service 07/21/2022 Discharge Diagnosis 1. S/P fall, resulting in C6-7 distraction injury with bilateral pedicle fractures ([id number] - PNED) 2. S/P C2-C7 decompressive laminectomy, C2-T2 posterior bone screw/merari fixation and fusion ([id number] - PNED) 3. DM2 (diabetes mellitus, type [...] and face. She was evaluated in the [facility] emergency department, where she was found to [...] She is ready to be discharged to [facility]. Her discharge instructions and restrictions been provided to [facility]. Her follow-up appointment has been arranged. Allergies [...] fracture of C6 with extension distraction fracture C6-N1gaami no change in alignment. XR Chest 1 [...] When 07/27/2022 09:30 AM EDT Where: [address] [facility] [address] [place] [address]- [phone] Follow Up Appointments See above Follow Up [...] Score No qualifying data available. Discharge Disposition [facility] Information Provided To Patient and [facility] Time Spent 15 min Digitally Signed by ARYAN VAZ on 07/21/2022 08:46 AM Digitally Signed by TRACE MATTHEWS MD on 07/21/2022 11:25 AM [facility] CenterInnhdgtx46-51-4387 Note Date of Service 07/21/22 Chief Complaint Weakness Subjective Patient is a very pleasant 71-year-old female with a past medical history significant for hypertension, obesity, hyperlipidemia, COPD, severe restrictive airway disease follows with [facility], noninsulin-dependent type 2 diabetes, venous insufficiency, goiter, GERD, chronic back pain and hypoxic respiratory failure wearing 2 L oxygen via nasal cannula continuous at home. Patient originally presented to [facility] emergency department on July 11, 2022. Patient sustained a mechanical fall over her walker landing on the left side of her face. [facility]. Patient was noted to have significant cervical spine injury and transferred to [facility] department for further evaluation. Patient was [...] patient's primary care physician covering provider at half-way facility. Continue home medication. Blood glucose checks [...] therapy involved. Recommending patient be discharged to half-way facility. Patient is agreeable to discharge to half-way facility. Discharge per primary team. At this [...] by JOANNA TOMLINSON on 07/21/2022 02:49 PM [facility] CenterLghqjnot97-08-5299 Discharge summary Date of Service 07/21/2022 Discharge Diagnosis 1. S/P fall, resulting in C6-7 distraction injury with bilateral pedicle fractures ([id number] - PNED) 2. S/P C2-C7 decompressive laminectomy, C2-T2 posterior bone screw/merari fixation and fusion ([id number] - PNED) 3. DM2 (diabetes mellitus, type [...] and face. She was evaluated in the [facility] emergency department, where she was found to [...] She is ready to be discharged to [facility]. Her discharge instructions and restrictions been provided to [facility]. Her follow-up appointment has been arranged. Allergies [...] fracture of C6 with extension distraction fracture C6-X3zkvzn no change in alignment. XR Chest 1 [...] When 07/27/2022 09:30 AM EDT Where: [address] [place] [address]- [phone] Follow Up Appointments See above Follow Up [...] Score No qualifying data available. Discharge Disposition [facility] Information Provided To Patient and [facility] Time Spent 15 min Digitally Signed by ARYAN VAZ on 07/21/2022 08:46 AM Digitally Signed by TRACE MATTHEWS MD on 07/21/2022 11:25 AM [facility] CenterFgwmnmug42-61-0360 Note Date of Service 07/20/22 Reason for Consultation Medical management Referring Physician Dr. Matthews History of Present Illness Patient is a very pleasant 71-year-old female with a past medical history significant for hypertension, obesity, hyperlipidemia, COPD, severe restrictive airway disease follows with [facility], noninsulin-dependent type 2 diabetes, venous insufficiency, goiter, GERD, chronic back pain and hypoxic respiratory failure wearing 2 L oxygen via nasal cannula continuous at home. Patient originally presented to [facility] emergency department on July 11, 2022. Patient sustained a mechanical fall over her walker landing on the left side of her face. [facility]. Patient was noted to have significant cervical spine injury and transferred to [facility] emergency department for further evaluation. Patient was [...] well. Patient complains of soreness at previous [facility] site. Patient denies shortness of breath, chest [...] patient's primary care physician covering provider at half-way facility. Continue home medication. Blood glucose checks TID. Sliding scale TID ADA diet Glycemic goal <180 Hypokalemia- resolved. Repeat BMP reviewed. Chronic hypoxic respiratory failure. Patient is tolerating oxygen via nasal cannula. 2 L which is baseline. Acute E. coli urinary tract infection. Patient has completed a full course of ceftriaxone Therapy and occasional therapy consult. Recommending patient be discharged to half-way facility. Patient is agreeable to discharge to half-way facility. Discharge per primary team. At this [...] by JOANNA TOMLINSON on 07/20/2022 01:37 PM [facility] CenterFzswptni99-23-5438 Neurological surgery Progress note Date of Service 07/20/2022 Chief Complaint S/P C2 to C7 decompressive laminectomy, C2 to T2 posterior bone screw/merari fixation (Infinity; Medtronic) with autograft/allograft (Infuse; Medtronic) fusion with navigation and intraoperative SSEP, MEP and EMG fllrmhhlab-arpn-jb day #7. This is a 71-year-old female, who sustained an unstable C6-7 fracture/dislocation status post falling over her walker and landing on the left side of her body and face. She was evaluated in the [facility] emergency department, where she was found to [...] TRACE MATTHEWS MD on 07/20/2022 10:34 AM [facility] CenterDylqgrkp91-55-9448 Progress note Date of Service July 19, [...] TRACE MATTHEWS MD on 07/19/2022 09:14 AM [facility] CenterCvwlevlj59-43-9397 Note Date of Service 07/18/2022 Split/shared visit [...] completed, have provided recommendations for skilled rehab. OPERATIONS GENERAL AGENT to assist with discharge planning. ICU team following for medical and pulmonary management; appreciate their support and assistance incare of patient. Please refer to Dr. Mccallum's addendum for further details. [1] VL Venous US/Doppler Both Legs(for DVT); 07/18/2022 11:00 EDT Digitally Signed by PELON RUIZ APRN-SILVINO on 07/18/2022 04:44 PM [facility] CenterSqlmgcwf85-62-0802 Note Date of Service 07/18/2022 Split/shared visit [...] completed, have provided recommendations for skilled rehab. OPERATIONS GENERAL AGENT to assist with discharge planning. ICU team following for medical and pulmonary management; appreciate their support and assistance incare of patient. Please refer to Dr. Mccallum's addendum for further details. [1] VL Venous US/Doppler Both Legs(for DVT); 07/18/2022 11:00 EDT Digitally Signed by PELON RUIZ on 07/18/2022 04:44 PM [facility] CenterFbukrzuq25-05-7197 Note Date of Service 07/18/2022 Split/shared visit [...] completed, have provided recommendations for skilled rehab. OPERATIONS GENERAL AGENT to assist with discharge planning. ICU team following for medical and pulmonary management; appreciate their support and assistance incare of patient. Please refer to Dr. Mccallum's addendum for further details. [1] VL Venous US/Doppler Both Legs(for DVT); 07/18/2022 11:00 EDT Digitally Signed by PELON RUIZ on 07/18/2022 04:44 PM [facility] CenterUosuojfs30-76-7279 Note Date of Service 07/18/2022 Split/shared visit [...] completed, have provided recommendations for skilled rehab. OPERATIONS GENERAL AGENT to assist with discharge planning. ICU team following for medical and pulmonary management; appreciate their support and assistance incare of patient. Please refer to Dr. Mccallum's addendum for further details. [1] VL Venous US/Doppler Both Legs(for DVT); 07/18/2022 11:00 EDT Digitally Signed by PELON RUIZ on 07/18/2022 04:44 PM [facility] CenterTowdgdba29-23-0466 Note Date of Service 07/18/22 Subjective This [...] KENY VARGAS MD on 07/18/2022 08:05 AM [facility] CenterGhhwnjnv37-19-7620 Note Date of Service 07/17/2022 Split/shared visit [...] lower extremities for assessment of possible DVT/SVT. Water Control Supervisor following for medical and pulmonary management; appreciate their support and assistancein care of patient. Please refer to Dr. Mccallum's addendum for further details. Dr Lerner like patient to remain in ICU until Doppler ultrasounds have been completed. Further instructions will be provided at that time. Digitally Signed by PELON RUIZ on 07/17/2022 11:16 AM [facility] CenterGygzyhki90-75-0273 Note Date of Service 07/17/22 Subjective This [...] KENY VARGAS MD on 07/17/2022 08:39 AM [facility] CenterMclkiaox56-11-7801 Note Date of Service 07/17/2022 Split/shared visit [...] lower extremities for assessment of possible DVT/SVT. Water Control Supervisor following for medical and pulmonary management; appreciate their support and assistancein care of patient. Please refer to Dr. Mccallum's addendum for further details. Dr Lerner like patient to remain in ICU until Doppler ultrasounds have been completed. Further instructions will be provided at that time. Digitally Signed by PELON RUIZ on 07/17/2022 11:16 AM [facility] CenterEipcvrmz25-63-7572 Neurological surgery Progress note Date of Service 07/16/2022 Chief Complaint S/P C2 to C7 decompressive laminectomy, C2 to T2 posterior bone screw/merari fixation (Infinity; Medtronic) with autograft/allograft (Infuse; Medtronic) fusion with navigation and intraoperative SSEP, MEP and EMG iodctrbwpe-pfle-zy day #3. This is a 71-year-old female, who sustained an unstable C6-7 fracture/dislocation status post falling over her walker and landing on the left side of her body and face. She was evaluated in the [facility] emergency department, where she was found to [...] neurosurgery to be notified to further evaluate. Water Control Supervisor following for medical and pulmonary management. Time Spent 15 min Digitally Signed by ARYAN VAZ APRN-SILVINO on 07/16/2022 12:12 PM [facility] CenterHvjpghvo97-83-4512 Neurological surgery Progress note Date of Service 07/16/2022 Chief Complaint S/P C2 to C7 decompressive laminectomy, C2 to T2 posterior bone screw/merari fixation (Infinity; Medtronic) with autograft/allograft (Infuse; Medtronic) fusion with navigation and intraoperative SSEP, MEP and EMG ymhjongafm-bphx-nc day #3. This is a 71-year-old female, who sustained an unstable C6-7 fracture/dislocation status post falling over her walker and landing on the left side of her body and face. She was evaluated in the [facility] emergency department, where she was found to [...] brace at all times. -Likely transfer [facility] tomorrow. Dr. Lerner would prefer to wait 5 days post-op to start chemical DVT prophylaxis. Will obtain LE dopplars on Tuesday and then likely clear patient to start Heparin sq. -In meantime continue SCDS. -Continue measuring thigh and calf bilateral twice a day and if increases in size by 1cm neurosurgery to be notified to further evaluate. Water Control Supervisor following for medical and pulmonary management. Time Spent 15 min Digitally Signed by ARYAN VAZ on 07/16/2022 12:12 PM [facility] CenterRkycimfx29-16-5744 Note Date of Service 07/16/2022 Chief Complaint [...] C2C3 so that patient was transferred to [facility] where she was evaluated per neurosurgery Dr. [...] ANNE-MARIE MCGRAW MD on 07/16/2022 09:57 AM [facility] CenterHqgqhaco66-57-3287 Neurological surgery Progress note Date of Service 07/14/2022 Chief Complaint S/P C2 to C7 decompressive laminectomy, C2 to T2 posterior bone screw/merari fixation (Infinity; Medtronic) with autograft/allograft (Infuse; Medtronic) fusion with navigation and intraoperative SSEP, MEP and EMG idlstoglkr-rocp-fg day #1. This is a 71-year-old female, who sustained an unstable C6-7 fracture/dislocation status post falling over her walker and landing on the left side of her body and face. She was evaluated in the [facility] emergency department, where she was found to have a distraction extension fracture at C6/7 with bilateral pedicle fractures. [facility]. Shewas taken to surgery yesterday for a C2-C7 decompressive laminectomy and C2-T2 posterior bone screw/merari fixation and fusion. She does have facial swelling, and therefore remains intubated. Water Control Supervisor plan to keep patient intubated today and [...] No edema noted Neurological: See HPI Skin: [place], warm, and dry. Psychiatric: Mood stable. Cooperative. [...] fracture of C6 with extension distraction fracture C6-W5juuji no change in alignment. XR Chest 1 [...] be extubated tomorrow and can start PT/OT. Water Control Supervisor following for medical and pulmonary management. Time Spent 15 min Digitally Signed by ARYAN VAZ on 07/14/2022 11:59 AM [facility] CenterYpgyrmcw82-95-5468 Neurological surgery Progress note Date of Service 07/15/2022 Chief Complaint S/P C2 to C7 decompressive laminectomy, C2 to T2 posterior bone screw/merari fixation (Infinity; Medtronic) with autograft/allograft (Infuse; Medtronic) fusion with navigation and intraoperative SSEP, MEP and EMG nbwzklqfnt-yqej-px day #2. This is a 71-year-old female, who sustained an unstable C6-7 fracture/dislocation status post falling over her walker and landing on the left side of her body and face. She was evaluated in the [facility] emergency department, where she was found to [...] neurosurgery to be notified to further evaluate. Water Control Supervisor following for medical and pulmonary management. Time Spent 15 min Digitally Signed by ARYAN VAZ on 07/15/2022 01:20 PM [facility] CenterTgsabsvj50-39-0863 Neurological surgery Progress note Date of Service 07/14/2022 Chief Complaint S/P C2 to C7 decompressive laminectomy, C2 to T2 posterior bone screw/merari fixation (Infinity; Medtronic) with autograft/allograft (Infuse; Medtronic) fusion with navigation and intraoperative SSEP, MEP and EMG ummloaiujk-ukwx-oc day #1. This is a 71-year-old female, who sustained an unstable C6-7 fracture/dislocation status post falling over her walker and landing on the left side of her body and face. She was evaluated in the [facility] emergency department, where she was found to have a distraction extension fracture at C6/7 with bilateral pedicle fractures. She was [facility] to [facility] for Neurosurgery evaluation. Shewas taken to surgery yesterday for a C2-C7 decompressive laminectomy and C2-T2 posterior bone screw/merari fixation and fusion. She does have facial swelling, and therefore remains intubated. Water Control Supervisor plan to keep patient intubated today and [...] No edema noted Neurological: See HPI Skin: [place], warm, and dry. Psychiatric: Mood stable. Cooperative. [...] fracture of C6 with extension distraction fracture C6-Y9bafag no change in alignment. XR Chest 1 [...] be extubated tomorrow and can start PT/OT. Water Control Supervisor following for medical and pulmonary management. Time Spent 15 min Digitally Signed by ARYAN VAZ on 07/14/2022 11:59 AM [facility] CenterIeezutsf61-30-6463 Neurological surgery Progress note Date of Service 07/15/2022 Chief Complaint S/P C2 to C7 decompressive laminectomy, C2 to T2 posterior bone screw/merari fixation (Infinity; Medtronic) with autograft/allograft (Infuse; Medtronic) fusion with navigation and intraoperative SSEP, MEP and EMG hgpimvcgtj-sugn-lh day #2. This is a 71-year-old female, who sustained an unstable C6-7 fracture/dislocation status post falling over her walker and landing on the left side of her body and face. She was evaluated in the [facility] emergency department, where she was found to [...] neurosurgery to be notified to further evaluate. Water Control Supervisor following for medical and pulmonary management. Time Spent 15 min Digitally Signed by ARYAN VAZ on 07/15/2022 01:20 PM [facility] CenterYyxzsily95-74-1104 Note Date of Service 07/15/2022 Subjective 71 [...] C2C3 so that patient was transferred to [facility] where she was evaluated per neurosurgery Dr. [...] DARLING EDWARDS MD on 07/15/2022 08:56 AM [facility] CenterJdfrvmdx42-11-6181 Note ORIGINAL EXAMINATION: ONE XRAY VIEW OF [...] 07/15/2022 6:01:36 AM Ordering Provider: OSEI STOVER [facility] CenterKkgkkakk28-91-3472 Note ORIGINAL EXAMINATION: ONE XRAY VIEW OF [...] Sign Date: 07/15/2022 6:01:36 AM [facility]08-31-[facility] Neurological surgery Progress note Date of Service 07/14/2022 Chief Complaint S/P C2 to C7 decompressive laminectomy, C2 to T2 posterior bone screw/merari fixation (Infinity; Medtronic) with autograft/allograft (Infuse; Medtronic) fusion with navigation and intraoperative SSEP, MEP and EMG xgfvqoofos-zyld-dh day #1. This is a 71-year-old female, who sustained an unstable C6-7 fracture/dislocation status post falling over her walker and landing on the left side of her body and face. She was evaluated in the [facility] emergency department, where she was found to have a distraction extension fracture at C6/7 with bilateral pedicle fractures. She was transferred to [facility] for Neurosurgery evaluation. Shewas taken to surgery yesterday for a C2-C7 decompressive laminectomy and C2-T2 posterior bone screw/merari fixation and fusion. She does have facial swelling, and therefore remains intubated. Water Control Supervisor plan to keep patient intubated today and [...] No edema noted Neurological: See HPI Skin: [place], warm, and dry. Psychiatric: Mood stable. Cooperative. [...] fracture of C6 with extension distraction fracture C6-W1jypwy no change in alignment. XR Chest 1 [...] be extubated tomorrow and can start PT/OT. Water Control Supervisor following for medical and pulmonary management. Time Spent 15 min Digitally Signed by ARYAN VAZ on 07/14/2022 11:59 AM [facility] CenterUvhnauny69-41-7712 Note ORIGINAL EXAMINATION: ONE SUPINE XRAY VIEW(S) [...] Sign Date: 07/14/2022 9:41:47 AM Ordering Provider: [facility]08-31-2022 Note ORIGINAL EXAMINATION: ONE SUPINE XRAY [...] Sign Date: 07/14/2022 9:41:47 AM Ordering Provider: [facility]08-31-2022 Note Date of Service 07/14/2022 Chief Complaint [...] C2C3 so that patient was transferred to [facility] where she was evaluated per neurosurgery Dr. [...] ANNE-MARIE MCGRAW MD on 07/16/2022 09:53 AM [address]31-2022 Note ORIGINAL EXAMINATION: CT OF THE [...] 07/14/2022 6:52:00 AM Ordering Provider: NITA MADERA [facility] CenterXgiysfcm08-08-7585 Note ORIGINAL EXAMINATION: ONE XRAY VIEW OF [...] Sign Date: 07/14/2022 6:00:18 AM Ordering Provider: [facility]08-31-2022 Note ORIGINAL EXAMINATION: ONE XRAY VIEW OF [...] by: Eder Clark MD Preliminary Report By: Maraina Lozano Electronically signed By Eder Clark MD Dictated Date: 07/14/2022 5:52:21 AM Prelim Date: 07/14/2022 5:56:35 AM Sign Date: 07/14/2022 6:00:18 AM Ordering Provider: [facility]08-31-2022 Note ORIGINAL EXAMINATION: CT OF THE [...] Sign Date: 07/14/2022 6:52:00 AM Ordering Provider: [facility]08-31-2022 Note ORIGINAL EXAMINATION: SPOT FLUOROSCOPIC IMAGES [...] 07/14/2022 4:26:28 AM Ordering Provider: MARYCHUY LERNER [facility] CenterHxhvujhn08-86-8337 Note ORIGINAL EXAMINATION: ONE XRAY VIEW OF [...] 07/13/2022 9:06:27 PM Ordering Provider: [place] COOL [facility] CenterKnmawgji64-87-1299 Note ORIGINAL EXAMINATION: ONE XRAY VIEW OF [...] Date: 07/13/2022 9:06:27 PM Ordering Provider: [place] [facility] CenterAgxvklaa24-22-1005 Note ORIGINAL EXAMINATION: SPOT FLUOROSCOPIC IMAGES 07/13/2022 [...] Date: 07/14/2022 4:26:28 AM Ordering Provider: MARYCHUY [facility]Martin [facility] HospitalCwacadzj39-04-2339 Note Date of Service 07/13/2022 Split/shared visit with Dr. Jaswant MD Neurosurgical CC: Unstable C6-7 fracture or dislocation post fall. 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 Patient transferred to [facility] ED. 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 Negative Pierre's. She does have 3 beats [...] pain post fall. She was taken to [facility] by EMS found to have cervical spine injury and transferred to [place]. Stat MRI completed and patient was admitted [...] Dr. Lerner's addendum [1] Progress Note; NITA MAEDRA 07/12/2022 05:43 EDT Digitally Signed by NITA MADERA on 07/13/2022 05:50 AM [id number] Note ORIGINAL EXAMINATION: TWO XRAY VIEWS OF [...] Sign Date: 07/13/2022 3:47:11 PM Ordering Provider: [facility]08-30-2022 Note ORIGINAL EXAMINATION: TWO XRAY [...] Sign Date: 07/13/2022 3:47:11 PM Ordering Provider: [facility]08-30-2022 Anesthesiology Consult note Patient: POLI [...] a prior cardiac history including a previous LA, however, she has not had any interventions, [...] Constipation NS 1,000 mL: 50 mL/hr, Intravenous Fenwick 325- 5 mg oral tablet: 1 tab(s), [...] list: Medical Chronic anemia / SNOMED CT 319944263 / Confirmed Chronic back pain / SNOMED CT 867236016 / Confirmed COPD / SNOMED CT 77945555 / Confirmed Hypertension, essential / SNOMED CT 50506957 / Confirmed GERD (gastroesophageal reflux disease) / SNOMED CT [id number] / Confirmed Goiter / SNOMED CT 2239352 / Confirmed Hyperlipidemia / SNOMED CT 82813365 / Confirmed Incontinence of urine / SNOMED CT 5871514223 / Confirmed, Active Problems (30) Anemia Arthritis [...] incontinence Histories Past Medical History: Active COPD (09623214) Chronic back pain (836615407) Resolved H/O hypercholesterolemia (0094026421): Resolved. Hypernatremia (7886198359): Resolved. Family History: Heart disease Father Brother Arthritis Daughter Stroke Mother Cancer Sister HTN - Hypertension Mother GERD (gastroesophageal reflux disease) Daughter Diverticulitis Daughter Procedure history: None (342716630). Appendectomy (759097044). Comments: 08/11/2017 12:13 SHAMA BOLTON left water taken off Tubal ligation (562458350). Cholecystectomy (39982851). Arthroscopic knee operation (3668040976). Comments: 12/24/2019 13:16 SHAMA Gabriel right Lumpectomy of breast (8692508050). Comments: 12/24/2019 13:16 SHAMA Gabriel left Phacoemulsification of cataract with intraocular lens implantation (7110179469). Comments: 12/24/2019 13:16 SHAMA Gabriel both eyes Colonoscopy (550462863). Esophagogastroduodenoscopy (011986241). Cardiac catheter (8585343480). Comments: 12/24/2019 13:17 SHAMA Gabriel years ago [...] kg (Modified) Weight Lbs 217.1 lb (Modified) [place] Body Weight 56.91 kg BSA Admission 2.05 [...] On and Limits Checked Nail Bed Color [place] Capillary Refill < 2 seconds Heart Sounds [...] grimaces Skin Symptoms Bruising All Extremity Description [place] Skin Temperature Warm Temperature All Extremities Warm Skin Description [place], Normal for ethnicity Skin Integrity Not intact Skin Turgor Non-Elastic Mucous Membrane Color [place] Mucous Membrane Description Moist Nose Anterior Skin [...] Arousable with minimal stimulation Eye Opening Response Marrero To voice Best Motor Response Marrero Obeys simple commands Best Verbal Response Marrero Oriented Marrero Coma Score 14 YANICK Yes Left Pupil [...] Appropriate, Calm, Cooperative Orientation Oriented x 4 Non Destructive Tester On Yes Patient Dressed In Hospital gown [...] On and Limits Checked Nail Bed Color [place] Capillary Refill < 2 seconds Heart Sounds ICU S1S2 Heart Rhythm Regular Dorsalis Pedis Pulse, Left 1+ Thready Dorsalis Pedis Pulse, Right 1+ Thready Posttibial Pulse, Left 1+ Thready Posttibial Pulse, Right 1+ Thready Radial Pulse, Left 2+ Normal Radial Pulse, Right 2+ Normal Edema Generalized None Cardiac Rhythm Sinus tachycardia Monitoring Lead II, V1/MCL1 VA Interval 0.16 second(s) QRS Duration 0.09 second(s) [...] grimaces Skin Symptoms Bruising All Extremity Description [place] Skin Temperature Warm Temperature All Extremities Warm Skin Description [place], Normal for ethnicity Skin Integrity Not intact Skin Turgor Non-Elastic Mucous Membrane Color [place] Mucous Membrane Description Moist Nose Anterior Skin [...] simple commands Best Verbal Response Zeke Oriented Marrero Coma Score 14 YANICK Yes Left Pupil [...] On and Limits Checked Nail Bed Color [place] Capillary Refill < 2 seconds Heart Sounds [...] grimaces Skin Symptoms Bruising All Extremity Description [place] Skin Temperature Warm Temperature All Extremities Warm Skin Description [place], Normal for ethnicity Skin Integrity Not intact Skin Turgor Elastic Mucous Membrane Color [place] Mucous Membrane Description Moist Nose Anterior Skin [...] Arousable with minimal stimulation Eye Opening Response Marrero To voice Best Motor Response Marrero Obeys simple commands Best Verbal Response Marrero Oriented Zeke Coma Score 14 YANICK Yes [...] Mode Order Detail Bed Nurse and Monitor Vp Revenue Cycle Details Form Vp Revenue Cycle Details Form 07/13/2022 0:40 EDT Notify date/time [...] On and Limits Checked Nail Bed Color [place] Capillary Refill < 2 seconds Heart Sounds ICU S1S2 Heart Rhythm Regular Dorsalis Pedis Pulse, Left 1+ Thready Dorsalis Pedis Pulse, Right 1+ Thready Posttibial Pulse, Left 1+ Thready Posttibial Pulse, Right 1+ Thready Radial Pulse, Left 2+ Normal Radial Pulse, Right 2+ Normal Edema Generalized None Cardiac Rhythm Sinus tachycardia Monitoring Lead II, V1/MCL1 VA Interval 0.13 second(s) QRS Duration 0.08 second(s) [...] grimaces Skin Symptoms Bruising All Extremity Description [place] Skin Temperature Warm Temperature All Extremities Warm Skin Description [place], Normal for ethnicity Skin Integrity Not intact Skin Turgor Non-Elastic Mucous Membrane Color [place] Mucous Membrane Description Moist Nose Anterior Skin [...] Arousable with minimal stimulation Eye Opening Response Marrero To voice Best Motor Response Marrero Obeys simple commands Best Verbal Response Marrero Oriented Zeke Coma Score 14 YANICK Yes [...] Appropriate, Calm, Cooperative Orientation Oriented x 4 [id number] Note Date of Service 07/13/2022 Split/shared visit with Dr. Jaswant MD Neurosurgical CC: Unstable C6-7 fracture or dislocation post fall. 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 Patient transferred to [place] ED. 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 Negative Pierre's. She does have 3 beats [...] pain post fall. She was taken to [facility] by EMS found to have cervical spine injury and transferred to [place] ED. Stat MRI completed and patient was [...] by NITA MADERA on 07/13/2022 05:50 AM [facility] [id number] Anesthesiology Consult note* ALEJANDRA HERNANDEZ MD: PERFORM, SIGN, VERIFY Event Display: Anesthesiology Consultation Authored Date: [id number] Patient: POLI RAMIREZ Age: 71 years Sex: [...] a prior cardiac history including a previous LA, however, she has not had any interventions, [...] Constipation NS 1,000 mL: 50 mL/hr, Intravenous Fenwick 325- 5 mg oral tablet: 1 tab(s), [...] list: Medical Chronic anemia / SNOMED CT 550078036 / Confirmed Chronic back pain / SNOMED CT 783407107 / Confirmed COPD / SNOMED CT 68052974 / Confirmed Hypertension, essential / SNOMED CT 42772871 / Confirmed GERD (gastroesophageal reflux disease) / SNOMED CT [id number] / Confirmed Goiter / SNOMED CT 6705439 / Confirmed Hyperlipidemia / SNOMED CT 13588030 / Confirmed Incontinence of urine / SNOMED CT 7600126180 / Confirmed, Active Problems (30) Anemia Arthritis [...] incontinence Histories Past Medical History: Active COPD (57781472) Chronic back pain (233479325) Resolved H/O hypercholesterolemia (1305602277): Resolved. Hypernatremia (4697378268): Resolved. Family History: Heart disease Father Brother Arthritis Daughter Stroke Mother Cancer Sister HTN - Hypertension Mother GERD (gastroesophageal reflux disease) Daughter Diverticulitis Daughter Procedure history: None (794132601). Appendectomy (256594313). Comments: 08/11/2017 12:13 SHAMA BOLTON left water taken off Tubal ligation (759804284). Cholecystectomy (76687104). Arthroscopic knee operation (3741066313). Comments: 12/24/2019 13:16 SHAMA Gabriel right Lumpectomy of breast (1038622925). Comments: 12/24/2019 13:16 SHAMA Gabriel left Phacoemulsification of cataract with intraocular lens implantation (0556236727). Comments: 12/24/2019 13:16 SHAMA Gabriel both eyes Colonoscopy (067205621). Esophagogastroduodenoscopy (295039272). Cardiac catheter (9581007166). Comments: 12/24/2019 13:17 SHAMA Gabriel years ago [...] kg (Modified) Weight Lbs 217.1 lb (Modified) [place] Body Weight 56.91 kg BSA Admission 2.05 [...] On and Limits Checked Nail Bed Color [place] Capillary Refill < 2 seconds Heart Sounds [...] grimaces Skin Symptoms Bruising All Extremity Description [place] Skin Temperature Warm Temperature All Extremities Warm Skin Description [place], Normal for ethnicity Skin Integrity Not intact Skin Turgor Non-Elastic Mucous Membrane Color [place] Mucous Membrane Description Moist Nose Anterior Skin [...] Appropriate, Calm, Cooperative Orientation Oriented x 4 Non Destructive Tester On Yes Patient Dressed In Hospital gown [...] On and Limits Checked Nail Bed Color [place] Capillary Refill < 2 seconds Heart Sounds ICU S1S2 Heart Rhythm Regular Dorsalis Pedis Pulse, Left 1+ Thready Dorsalis Pedis Pulse, Right 1+ Thready Posttibial Pulse, Left 1+ Thready Posttibial Pulse, Right 1+ Thready Radial Pulse, Left 2+ Normal Radial Pulse, Right 2+ Normal Edema Generalized None Cardiac Rhythm Sinus tachycardia Monitoring Lead II, V1/MCL1 VA Interval 0.16 second(s) QRS Duration 0.09 second(s) [...] grimaces Skin Symptoms Bruising All Extremity Description [place] Skin Temperature Warm Temperature All Extremities Warm Skin Description [place], Normal for ethnicity Skin Integrity Not intact Skin Turgor Non-Elastic Mucous Membrane Color [place] Mucous Membrane Description Moist Nose Anterior Skin [...] Arousable with minimal stimulation Eye Opening Response Marrero To voice Best Motor Response Zeke Obeys simple commands Best Verbal Response Marrero Oriented Zeke Coma Score 14 YANICK Yes [...] On and Limits Checked Nail Bed Color [place] Capillary Refill < 2 seconds Heart Sounds [...] grimaces Skin Symptoms Bruising All Extremity Description [place] Skin Temperature Warm Temperature All Extremities Warm Skin Description [place], Normal for ethnicity Skin Integrity Not intact Skin Turgor Elastic Mucous Membrane Color [place] Mucous Membrane Description Moist Nose Anterior Skin [...] Mode Order Detail Bed Nurse and Monitor Vp Revenue Cycle Details Form Vp Revenue Cycle Details Form 07/13/2022 0:40 EDT Notify date/time [...] On and Limits Checked Nail Bed Color [place] Capillary Refill < 2 seconds Heart Sounds ICU S1S2 Heart Rhythm Regular Dorsalis Pedis Pulse, Left 1+ Thready Dorsalis Pedis Pulse, Right 1+ Thready Posttibial Pulse, Left 1+ Thready Posttibial Pulse, Right 1+ Thready Radial Pulse, Left 2+ Normal Radial Pulse, Right 2+ Normal Edema Generalized None Cardiac Rhythm Sinus tachycardia Monitoring Lead II, V1/MCL1 VA Interval 0.13 second(s) QRS Duration 0.08 second(s) [...] grimaces Skin Symptoms Bruising All Extremity Description [place] Skin Temperature Warm Temperature All Extremities Warm Skin Description [place], Normal for ethnicity Skin Integrity Not intact Skin Turgor Non-Elastic Mucous Membrane Color [place] Mucous Membrane Description Moist Nose Anterior Skin [...] Arousable with minimal stimulation Eye Opening Response Marrero To voice Best Motor Response Zeke Obeys [...] mL 07/12/2022 22:59 EDT IV Present Present Non Destructive Tester On Yes Patient Dressed In Hospital gown [...] On and Limits Checked Nail Bed Color [place] Capillary Refill < 2 seconds Heart Sounds [...] grimaces Skin Symptoms Bruising All Extremity Description [place] Skin Temperature Warm Temperature All Extremities Warm Skin Description [place], Normal for ethnicity Skin Integrity Not intact Skin Turgor Elastic Mucous Membrane Color [place] Mucous Membrane Description Moist Nose Anterior Skin [...] Type 0-10 Pain scale Nail Bed Color [place] Capillary Refill < 2 seconds Dorsalis Pedis [...] grimaces Skin Symptoms Bruising All Extremity Description [place] Skin Temperature Warm Temperature All Extremities Warm Skin Description [place], Normal for ethnicity Skin Integrity Not intact Skin Turgor Elastic Mucous Membrane Color [place] Mucous Membrane Description Moist Nose Anterior Skin [...] Response Zeke To voice Best Motor Response Marrero Obeys simple commands Best Verbal Response Marrero Oriented Zeke Coma Score 14 YANICK Yes [...] Type 0-10 Pain scale Nail Bed Color [place] Capillary Refill < 2 seconds Heart Rhythm [...] On Skin Symptoms Bruising All Extremity Description [place] Skin Temperature Warm Temperature All Extremities Warm Skin Description [place], Normal for ethnicity Skin Integrity Not intact Skin Turgor Elastic Mucous Membrane Color [place] Mucous Membrane Description Moist Nose Anterior Skin [...] Response Zeke To voice Best Motor Response Marrero Obeys simple commands Best Verbal Response Zeke [...] Mode Order Detail Bed Nurse and Monitor Vp Revenue Cycle Details Form Vp Revenue Cycle Details Form 07/12/2022 15:18 EDT SN - [...] Type 0-10 Pain scale Nail Bed Color [place] Capillary Refill < 2 seconds Heart Rhythm Regular Dorsalis Pedis Pulse, Left 1+ Thready Dorsalis Pedis Pulse, Right 1+ Thready Posttibial Pulse, Left 1+ Thready Posttibial Pulse, Right 1+ Thready Radial Pulse, Left 2+ Normal Radial Pulse, Right 2+ Normal Edema Generalized None Cardiac Rhythm Bundle branch block Cardiac Rhythm Sinus tachycardia Monitoring Lead II VA Interval 0.13 second(s) QRS Duration 0.12 second(s) [...] On Skin Symptoms Bruising All Extremity Description [place] Skin Temperature Warm Temperature All Extremities Warm Skin Description [place], Normal for ethnicity Skin Integrity Not intact Skin Turgor Elastic Mucous Membrane Color [place] Mucous Membrane Description Moist Nose Anterior Skin [...] Type 0-10 Pain scale Nail Bed Color [place] Capillary Refill < 2 seconds Heart Rhythm [...] On Skin Symptoms Bruising All Extremity Description [place] Skin Temperature Warm Temperature All Extremities Warm Skin Description [place], Normal for ethnicity Skin Integrity Not intact Skin Turgor Elastic Mucous Membrane Color [place] Mucous Membrane Description Moist Continuous IV Infusions NS @ 50ml/hr Forearm Right 18 gauge Peripheral IV Site Condition: No complications Neurological Language Able to speak clearly Neurological Symptoms Numbness Gait Unable to assess Extremity Movement Equal Swallowing Difficulty None Characteristics of Communication Appropriate Characteristics of Speech Clear Facial Symmetry Symmetric Level of Consciousness Arousable with minimal stimulation Eye Opening Response Marrero Spontaneously Best Motor Response Zeke Obeys simple [...] Person #2 We May Share PHI Jocy [phone] Designated Person #2 Relationship Daughter Privacy Restrictions Requested None (Modified) Height 165 cm (Modified) Height in inches 65 inch(es) (Modified) Admission Weight 98.7 kg (Modified) Weight Lbs 217.1 lb (Modified) [place] Body Weight 56.91 kg BSA Admission 2.05 [...] Advanced Directives Yes (Modified) Advance Directive Type [place] Declaration (Living Will) (Modified) Advance Directive Location [...] Verbalizes/Nonverbally indicates understanding (Modified) Preferred Written Language Uzbek (Modified) Preferred Spoken Language Uzbek (Modified) Information Given by Patient (Modified) Patient's [...] Type 0-10 Pain scale Nail Bed Color [place] Capillary Refill < 2 seconds Heart Sounds ICU S1S2 Heart Rhythm Regular Dorsalis Pedis Pulse, Left 1+ Thready Dorsalis Pedis Pulse, Right 1+ Thready Posttibial Pulse, Left 1+ Thready Posttibial Pulse, Right 1+ Thready Edema Generalized None Cardiac Rhythm Bundle branch block Cardiac Rhythm Sinus tachycardia Monitoring Lead II VA Interval 0.14 second(s) QRS Duration 0.12 second(s) [...] On Skin Symptoms Bruising All Extremity Description [place] Skin Temperature Warm Temperature All Extremities Warm Skin Description [place], Normal for ethnicity Skin Integrity Not intact Skin Turgor Elastic Mucous Membrane Color [place] Mucous Membrane Description Moist Nose Anterior Skin [...] Type 0-10 Pain scale Nail Bed Color [place] Capillary Refill < 2 seconds Dorsalis Pedis [...] On Skin Symptoms Bruising All Extremity Description [place] Skin Temperature Warm Temperature All Extremities Warm Skin Description [place], Normal for ethnicity Skin Integrity Not intact Skin Turgor Elastic Mucous Membrane Color [place] Mucous Membrane Description Moist Nose Anterior Wound [...] Zeke Obeys simple commands Best Verbal Response Marrero Oriented Zeke Coma Score 15 YANICK Yes [...] Mode Order Detail Bed Nurse and Monitor Vp Revenue Cycle Details Form Vp Revenue Cycle Details Form 07/12/2022 8:15 EDT Magnesium Lvl [...] Type 0-10 Pain scale Nail Bed Color [place] Capillary Refill < 2 seconds Heart Sounds ICU S1S2 Heart Rhythm Regular Dorsalis Pedis Pulse, Left 1+ Thready Dorsalis Pedis Pulse, Right 1+ Thready Posttibial Pulse, Left 1+ Thready Posttibial Pulse, Right 1+ Thready Radial Pulse, Left 2+ Normal Radial Pulse, Right 2+ Normal Edema Generalized None Cardiac Rhythm Sinus tachycardia, Bundle branch block Monitoring Lead II, V1/MCL1 VA Interval 0.14 second(s) QRS Duration 0.13 second(s) [...] On Skin Symptoms Bruising All Extremity Description [place] Skin Temperature Warm Temperature All Extremities Warm Skin Description [place], Normal for ethnicity Skin Integrity Not intact Skin Turgor Elastic Mucous Membrane Color [place] Mucous Membrane Description Moist Nose Anterior Skin [...] Opening Response Zeke Spontaneously Best Motor Response Marrero Obeys simple commands Best Verbal Response Zeke Oriented Marrero Coma Score 15 YANICK Yes Left Pupil [...] On and Limits Checked Nail Bed Color [place] Capillary Refill < 2 seconds Heart Sounds [...] On Skin Symptoms Bruising All Extremity Description [place] Skin Temperature Warm Skin Description [place], Normal for ethnicity Skin Integrity Not intact Skin Turgor Elastic Mucous Membrane Color [place] Mucous Membrane Description Moist Nose Anterior Skin Abnormality Type: Abrasion Wound Status: No complications Neurological Language Able to speak clearly, Follows simple commands Neurological Symptoms Numbness Gait Unable to assess Extremity Movement Equal Swallowing Difficulty None Characteristics of Communication Appropriate Characteristics of Speech Clear Facial Symmetry Symmetric Level of Consciousness Arousable with minimal stimulation Eye Opening Response Zeke Spontaneously Best Motor Response Marrero Obeys simple commands Best Verbal Response Zeke [...] On and Limits Checked Nail Bed Color [place] Capillary Refill < 2 seconds Heart Sounds [...] On Skin Symptoms Bruising All Extremity Description [place] Skin Temperature Warm Temperature All Extremities Warm Skin Description [place], Dry Skin Integrity Not intact Skin Turgor Elastic Mucous Membrane Color [place] Mucous Membrane Description Moist Nose Anterior Wound Status: Unchanged Continuous IV Infusions NS@50 Neurological Language Able to speak clearly Neurological Symptoms Numbness Gait Unable to assess Extremity Movement Equal Swallowing Difficulty None Characteristics of Communication Appropriate Characteristics of Speech Clear Facial Symmetry Symmetric Level of Consciousness Arousable with minimal stimulation Eye Opening Response Marrero To voice Best Motor Response Zeke Obeys simple commands Best Verbal Response Zeke Oriented Marrero Coma Score 14 YANICK Yes Left Pupil [...] Mode Order Detail Bed Nurse and Monitor Vp Revenue Cycle Details Form Vp Revenue Cycle Details Form 07/12/2022 0:25 EDT Mechanical VTE Prophylaxis Education Not Done: Task Duplication (Not Done) Sequential Compression Device Form Not Done (Not Done) 07/12/2022 0:08 EDT Primary Pain Intensity 7 HYDROmorphone 0.5 mg mg ondansetron 4 mg mg . Assessment and Plan [place] [employer] Anesthesi[employer] (ASA) physical status classification: [...] ALEJANDRA HERNANDEZ MD on 07/13/2022 07:28 AM [facility] 08-29-2022 Note Date of Service 07/12/2022 [...] and equal. Left tricep 2.5/5, bicep 3.5/5, ase master mechanic 4/5, bilateral intrinsics are strong. Negative Pierre's. [...] pain post fall. She was taken to [facility] by EMS found to have cervical spine injury and transferred to [place] ED. Stat MRI completed and patient was [...] by NITA MADERA on 07/12/2022 05:53 AM [facility] [id number] Critical care medicine Consult note Date of [...] C2C3 so that patient was transferred to [facility] where she was evaluated per neurosurgery Dr. [...] 17 gram(s)= 15 mL, Oral, qDay, PRN Fenwick 325- 5 mg oral tablet, 1 tab(s), [...] DARLING EDWARDS MD on 07/12/2022 09:57 AM [facility] [id number] Note ORIGINAL EXAMINATION: ONE XRAY VIEW OF [...] 07/12/2022 8:41:07 AM Ordering Provider: TEQUILA YOUNG [facility] [id number] Note Date of Service 07/12/2022 Split/shared visit [...] and equal. Left tricep 2.5/5, bicep 3.5/5, ase master mechanic 4/5, bilateral intrinsics are strong. Negative Pierre's. [...] pain post fall. She was taken to [facility] by EMS found to have cervical spine injury and transferred to [place] ED. Stat MRI completed and patient was [...] by NITA MADERA on 07/12/2022 05:53 AM [facility] [id number] Note ORIGINAL EXAMINATION: ONE XRAY VIEW OF [...] Date: 07/12/2022 8:41:07 AM Ordering Provider: TEQUILA [facility]08-29-2022 Note ORIGINAL EXAMINATION: ONE XRAY [...] Sign Date: 07/12/2022 7:52:46 AM Ordering Provider: [address]29-2022 Note ORIGINAL EXAMINATION: ONE XRAY VIEW [...] Sign Date: 07/12/2022 7:52:46 AM Ordering Provider: [address]29-2022 Note Date of Service 07/12/2022 Split/shared [...] and equal. Left tricep 2.5/5, bicep 3.5/5, ase master mechanic 4/5, bilateral intrinsics are strong. Negative Pierre's. [...] pain post fall. She was taken to [facility] by EMS found to have cervical spine injury and transferred to [place] ED. Stat MRI completed and patient was [...] by NITA MADERA on 07/12/2022 05:53 AM [facility] CenterWgzejybk21-15-3426 Note ORIGINAL EXAMINATION: ONE XRAY VIEW OF [...] 07/11/2022 7:30:42 PM Ordering Provider: NITAFABBY MADERA [facility] CenterKwqsrwvy65-59-1720 Note ORIGINAL EXAMINATION: ONE XRAY VIEW OF [...] 07/11/2022 7:28:52 PM Ordering Provider: NITA MADERA [facility] CenterHofdoahy46-15-3408 History and physical note Date of Service 07/11/2022 Chief Complaint Fall, neck pain History of Present Illness Mrs. Ramirez is a 71-year-old female with a past medical history of hypertension, obesity, hyperlipidemia, COPD, severe restrictive airway disease follows with [place], noninsulin-dependent type 2 diabetes, venous insufficiency, [...] precautions have been maintained. Patient taken to [facility]. She was noted to have a significant cervical spine injury and transferred to [place] ED for further evaluation and trauma work-up. Dr. Matthews was contacted and stat MRI was completed. This shows significant ligamentous disruption, dislocated and distracted fracture of C6-C7. Shalini brace was placed on the patient in the ED by Michelle [employer], myself and ED nurses. Head andneck were [...] strength noted to be unequal. Bicep/tricep and ase master mechanic 3.5/5 on the left, strong on the [...] pain post fall. She was taken to [facility] by EMS found to have cervical spine injury and transferred to [place] ED. Stat MRI completed and patient was [...] completed regarding recommendations for treatment Consult to turntable operator for assistance with medical management and [...] by NITA MADERA on 07/11/2022 06:29 PM [id number] Note ORIGINAL EXAMINATION: ONE XRAY VIEW OF [...] Date: 07/11/2022 7:30:42 PM Ordering Provider: [facility] [id number] Evaluation + Plan noteExtracted from: Title:History and Physical Author:SHIRIN MADERA BRICK STACKER-ENTRY LEVEL RECEPTIONIST Date:07/11/22 71-year-old female sustained a unwitnessed mechanical fall over her walker landing on left side and face 07/11/2022. Denies LOC. Developed immediate neck pain post fall. She was taken to [facility] by EMS found to have cervical spine injury and transferred to [place] ED. Stat MRI completed and patient was [...] completed regarding recommendations for treatment Consult to turntable operator for assistance with medical management and surgical clearance. Discussed case with ICU nurse practitioner Future Appointments Appointment Date:08/10/2022 11:00:00 AM Scheduled Provider: Location:[facility] Appointment Type:NS Post Op Future Scheduled Tests Laboratory* A1C Hemoglobin 01/06/22 * Lipid Profile 01/06/22 * Complete Metabolic Panel 01/06/22 Radiology* XR Spine Cervical AP/LAT 07/27/22 [facility] 08-28-2022 Note ORIGINAL HISTORY: Fracture COMPARISON: [...] 07/11/2022 1:13:40 PM Ordering Provider: FABIANO MARTIN [facility] [id number] Note ORIGINAL HISTORY: Pain, fall COMPARISON: No [...] 07/11/2022 9:14:35 AM Ordering Provider: MARIANA RAMOS [facility]08-28-2022 Note ORIGINAL HISTORY: Neck pain, [...] Sign Date: 07/11/2022 9:13:21 AM Ordering Provider: [address]28-2022 Note ORIGINAL HISTORY: Pain COMPARISON: No [...] bilateral atelectasis and or consolidation. Interpreted by: oRberta Rosario MD Preliminary Report By: Roberta Rosario MD Electronically signed By Roberta Rosario MD Dictated Date: 07/11/2022 9:02:02 AM Prelim Date: 07/11/2022 9:03:50 AM Sign Date: 07/11/2022 9:03:50 AM Ordering Provider: [address]28-2022 Note ORIGINAL HISTORY: Fall COMPARISON: 04 [...] Date: 07/11/2022 9:01:52 AM Ordering Provider: MARIANA [facility]08-28-2022 Note ORIGINAL HISTORY: Neck pain, fall [...] Sign Date: 07/11/2022 9:13:21 AM Ordering Provider: [facility]08-28-2022 Note ORIGINAL HISTORY: Pain COMPARISON: [...] Sign Date: 07/11/2022 9:03:50 AM Ordering Provider: [facility]08-28-2022 Note ORIGINAL HISTORY: Pain, fall [...] Sign Date: 07/11/2022 9:14:35 AM Ordering Provider: [facility]08-28-2022 Note ORIGINAL HISTORY: Fall COMPARISON: [...] Sign Date: 07/11/2022 9:01:52 AM Ordering Provider: [facility]02-23-2022 Evaluation + Plan note Future Scheduled Tests Laboratory* A1C Hemoglobin 01/06/22 * Lipid Profile 01/06/22 * Complete Metabolic Panel 01/06/22 [facility] 01-21-2022 Hospital Discharge instructions Patient [...] keep having episodes of high blood sugar. [id number] [employer]. [address] [place] [address], [place] [address]. All rights reserved. This information is not [...] in vomit, stools (black or red color) [id number] [employer] [place] [address]. All rights reserved. This information is not intended as a substitute for professional medical care. Always follow yourhealthcare professional's instructions. Follow Up Care 12/04/2021 08:14:09 [facility]LE [facility] Address: [phone] When:2-4 days [facility] 11-02-2021 Hospital Discharge instructions Patient [...] and fish, and low-fat dairy products. [employer]. [address] [place], [place] [address]. All rights reserved. This information is not intended as a substitute for professional medical care. Always follow [facility]'s instructions. 09/15/2021 20:06:55 Medical [...] back to this facility in person. [employer] [address] [place] [address]. All rights reserved. This information is not intended as a substitute for professional medical care. Always follow yourhealthcare professional's instructions. Follow Up Care 09/15/2021 18:07:55 With:BARBER CARLISLE Address:Unknown When:Within 1 Day(s) Comments:Follow-up as scheduled with your doctor tomorrow.Continue all routine medications.Return to the ED if symptoms worsen. [facility] [email or web address] + Plan note Future Appointments Appointment Date:09/16/2021 01:30:00 PM Scheduled Provider:BARBER CARLISLE Location:[facility] Appointment Type:[facility] [email or web address] + Plan note Future Appointments Appointment Date:03/22/2022 02:00:00 PM Scheduled Provider:BARBER CARLISLE Location:[facility] Appointment Type:[facility] [email or web address] + Plan note Future Appointments Appointment Date:07/27/2022 09:30:00 AM Scheduled Provider: Location:[facility] Appointment Type:NS Post Op Future Scheduled Tests Laboratory* A1C Hemoglobin 01/06/22 * Lipid Profile 01/06/22 * Complete Metabolic Panel 01/06/22 [facility] evaluation + Plan note Future Appointments Appointment Date:08/12/2022 08:30:00 AM Scheduled Provider: Location:[facility] Appointment Type:NS Post Op Future Scheduled Tests Laboratory* A1C Hemoglobin 01/06/22 * Lipid Profile 01/06/22 * Complete Metabolic Panel 01/06/22 Radiology* XR Spine Cervical AP/LAT 07/27/22 [facility] evaluation + Plan note Future Appointments Appointment Date:09/09/2022 10:00:00 AM Scheduled Provider: Location:[facility] Appointment Type:NS Post Op Future Scheduled Tests Laboratory* A1C Hemoglobin 01/06/22 * Lipid Profile 01/06/22 * Complete Metabolic Panel 01/06/22 [facility] Evaluation + Plan note Future Appointments Appointment Date:10/05/2022 01:30:00 PM Scheduled Provider:TRACE MATTHEWS MD Location:[facility] Appointment Type:NS Post Op Future Scheduled Tests Laboratory* A1C Hemoglobin 01/06/22 * Lipid Profile 01/06/22 * Complete Metabolic Panel 01/06/22 Radiology* XR Spine Thoracic 2 Views 09/09/22 * XR Spine Cervical AP/LAT/Flex/Ext 09/09/22 [facility] Evaluation + Plan note Future Appointments Appointment Date:10/26/2022 03:00:00 PM Scheduled Provider: Location:[facility] Appointment Type:CT Spine Cervical w/o Contrast Appointment Date:11/04/2022 02:15:00 PM Scheduled Provider:TRACE MATTHEWS MD Location:[facility] Appointment Type:Telephone Future Scheduled Tests Laboratory* A1C Hemoglobin 01/06/22 * Lipid Profile 01/06/22 * Complete Metabolic Panel 01/06/22 Radiology* CT Spine Cervical w/o Contrast 10/26/22 [facility] Evaluation + Plan note Future Appointments Appointment Date:11/04/2022 02:15:00 PM Scheduled Provider:TRACE MATTHEWS MD Location:[facility] Appointment Type:Telephone Future Scheduled Tests Laboratory* A1C Hemoglobin 01/06/22 * Lipid Profile 01/06/22 * Complete Metabolic Panel 01/06/22 [facility] Evaluation + Plan note Future Appointments Appointment Date:08/19/2023 02:30:00 PM Scheduled Provider: Location:[facility] Appointment Type:MRI Pancreas Future Scheduled Tests Radiology* MRI Pancreas 08/19/23 [facility] evaluation noteNo assessment information available [facility] Work Phone: evaluation note* Diagnosis Onset Date Resolution Status Iron deficiency anemia acute Vitamin B12 deficiency acute Thrombocytopenia chronic [facility] Work Phone: evaluation note* Diagnosis Onset Date Resolution Status Hyperglycemia acute Metabolic encephalopathy acu te Acute on chronic respiratory failure with hypoxia and hypercapnia chronic COPD (chronic obstructive pulmonary disease) chronic [facility] Work Phone: Evaluation note* Diagnosis Onset Date Resolution Status Anemia acute Cardiomyopathy acute Congestive heart failure (CHF) acute Hyperglycemia acute Lower extremity edema acute Lung nodules acute Metabolic encephalopathy acu te On mechanically assisted ventilation acute Pneumonia acute Respiratory disorder with ventilator dependence acute Acute on chronic respiratory failure with hypoxia and hypercapnia chronic COPD (chronic obstructive pulmonary disease) [facility] Work Phone: Evaluation note* Diagnosis Onset Date Resolution Status Iron deficiency anemia chron ic Thrombocytopenia chronic Iron deficiency anemia chron ic Thrombocytopenia chronic Anemia acute Congestive heart failure (CHF) acute COPD (chronic obstructive pulmonary disease) chronic Lung nodules chronic Metabolic encephalopathy res olved Pneumonia resolved Breast nodule acute Neck mass acute Iron deficiency anemia chron ic Lung nodules chronic Thrombocytopenia [facility] Work Phone: Evaluation note* Diagnosis Onset Date Resolution Status Iron deficiency anemia chron ic Thrombocytopenia chronic Anemia acute Congestive heart failure (CHF) acute COPD (chronic obstructive pulmonary disease) chronic Lung nodules chronic Metabolic encephalopathy res olved Pneumonia resolved Breast nodule acute Neck mass acute Iron deficiency anemia chron ic Lung nodules chronic Thrombocytopenia [facility] Work Phone: Evaluation note* Diagnosis Onset [...] nodules chronic Thrombocytopenia chronic Breast nodule acute [facility] Work Phone: Evaluation note* Diagnosis Onset Date Resolution Status Breast nodule acute Neck mass acute Iron deficiency anemia chron ic Lung nodules chronic Thrombocytopenia chronic Breast nodule acute Breast nodule acute Neck mass acute Iron deficiency anemia chron ic Lung nodules chronic Thrombocytopenia [facility] Work Phone: Evaluation note* Diagnosis Onset Date Resolution Status Breast nodule acute Neck mass acute Iron deficiency anemia chron ic Lung nodules chronic Thrombocytopenia [facility] Work Phone: Evaluation note* Diagnosis Onset Date Resolution Status Hematuria acute Iron deficiency anemia chron ic Lung nodules chronic Thrombocytopenia [facility] Work Phone: Evaluation note* Diagnosis Colovaginal fistula- Primary Colovaginal fistula Acquired thrombocytopenia (CMS/HCC) Secondary thrombocytopenia Encounter for preprocedural cardiovascular examination Dilated cardiomyopathy (CMS/HCC) Other primary cardiomyopathies Dilated cardiomyopathy (CMS/HCC) Other primary cardiomyopathies documented in this encounter [facility] Work Phone: Evaluation note* Diagnosis Diverticulitis- Primary Diverticulitis of colon (without mention of hemorrhage) Colovaginal fistula- Primary Diverticulitis Diverticulitis of colon (without mention of hemorrhage) documented in this encounter [facility] Work Phone: Evaluation note* Diagnosis Preop cardiovascular exam- Primary Pre-operative cardiovascular examination Chronic systolic heart failure (CMS/HCC) Chronic systolic heart failure documented in this encounter [facility] Work Phone: Evaluation note* Diagnosis Encounter for preadmission testing documented in this encounter [facility] Work Phone: Evaluation note* Diagnosis Encounter for preadmission testing documented in this encounter [facility] Work Phone: Hospital course Narrative No data available for this section [facility] Hospital Discharge instructions No data available for this section [facility] Hospital Discharge instructions Additional Instructions [...] have a progression or worsening of your symptoms.[facility] Work Phone: Progress note No data available for this section [facility] Summary Purpose Family History No Family History Records Found Sister Name Dates Details Family history of malignant neoplasm of breast(V16.3, Z80.3) Status:Active Relationship Condition Age at Onset Recorded Date/T [place] sister Malignant neoplasm of breast Unknown grandmother Diabetes mellitus Unknown Advance Directives No Advanced Directives Records Found Advance Directive Response Recorded Date/ Time Living Will No November 24 9:00am Power of Ship Washer No November 24, 2021 9:00am Advance Directive Response Recorded Date/ Time Living Will No November 24 8:00am Power of Ship Washer No November 24, 2021 8:00am Advance Directive Response Recorded Date/ Time Living Will No April 19, 2023 4 :46pm Power of Ship Washer No April 19, 2023 4:46pm Advance Directive Response Recorded Date/ Time Living Will No July 14 4:04pm Power of Ship Washer No July 14 4:04pm Advance Directive Response Recorded Date/ Time Living Will No August 09, 2023 11:01pm Power of Ship Washer No July 11:01pm Advance Directive Response Recorded Date/ Time Living Will No September 14 10:49pm Power of Ship Washer No September 14, 2023 10:49pm Latest Code [...] Will No September 14 9:49pm Power of Ship Washer No September 14, 2023 9:49pm Latest Code [...] Complaint and Reason for Visit Chief Complaint MCC LABWORK MCC LAB WORK Chief Complaint MCC LABWORK MCC LAB WORK MCC LABWORK Chief Complaint MCC LABWORK MCC LAB WORK MCC LAB WORK MCC LABWORK MCC LABWORK Chief Complaint MCC LABWORK MCC LAB WORK MCC LAB WORK MCC LABWORK LABWORK MCC LABWORK 2MO -LABS- NEW PT - PANCYTOPENIA [...] PT - PANCYTOPENIA 2MO -LABS- 2MO -LABS- MCC LABWORK ACUTE ON CHRONIC HYPOXIC AND HYPERCAPNIC [...] NEW PT - PANCYTOPENI A 2MO -LABS- MCC LABWORK ACUTE ON CHRONIC HYPOXIC AND HYPERCAPNIC [...] HYPERCAPNIC ACUTE ON CHRONIC HYPOXIC AND HYPERCAPNIC MCC LABWORK 3MO LABS 2MO -LABS- Reason for Visit Iron deficiency anem ia Thrombocytopenia Iron deficiency anemia Thrombocytopenia Anemia Congestive heart failure (CHF) COPD (chronic obstructive pulmonary disease) Lung nodules Metabolic encephalopathy Pneumonia Breast nodule Neck mass Iron deficiency anemia Lung nodules Thrombocytopenia Chief Complaint 2MO -LABS- MCC LABWORK ACUTE ON CHRONIC HYPOXIC AND HYPERCAPNIC [...] HYPERCAPNIC ACUTE ON CHRONIC HYPOXIC AND HYPERCAPNIC MCC LABWORK MCC LABWORK MCC LABWORK 3MO LABS 2MO -LABS- NODULE ON NECK, ? CANCER Reason for Visit Iron deficiency anem ia Thrombocytopenia Anemia Congestive heart failure (CHF) COPD (chronic obstructive pulmonary disease) Lung nodules Metabolic encephalopathy Pneumonia Breast nodule Neck mass Iron deficiency anemia Lung nodules Thrombocytopenia Chief Complaint 2MO -LABS- MCC LABWORK ACUTE ON CHRONIC HYPOXIC AND HYPERCAPNIC [...] HYPERCAPNIC ACUTE ON CHRONIC HYPOXIC AND HYPERCAPNIC MCC LABWORK MCC LABWORK MCC LABWORK 3MO LABS 2MO -LABS- NODULE ON [...] Thrombocytopenia Breast nodule Chief Complaint 2MO -LABS- MCC LABWORK ACUTE ON CHRONIC HYPOXIC AND HYPERCAPNIC [...] HYPERCAPNIC ACUTE ON CHRONIC HYPOXIC AND HYPERCAPNIC MCC LABWORK MCC LABWORK MCC LABWORK 3MO LABS 2MO -LABS- NODULE ON [...] Thrombocytopenia Breast nodule Chief Complaint 2MO -LABS- MCC LABWORK ACUTE ON CHRONIC HYPOXIC AND HYPERCAPNIC [...] HYPERCAPNIC ACUTE ON CHRONIC HYPOXIC AND HYPERCAPNIC MCC LABWORK MCC LABWORK MCC LABWORK 3MO LABS 2MO -LABS- NODULE ON NECK, ? CANCER 2WKS NO LABS REVIEW MAMMO/CT MCC LABWORK L BREAST NODULE L BREAST NODULE [...] CA NCER 2WKS NO LABS REVIEW MAMMO/CT MCC LABWORK L BREAST NODULE L BREAST NODULE LABWORK abd pain 2MO -LABS- 6WKS LABS REVIEW BIOPSY/PATH MCC LAB WORK Reason for Visit Breast nodule Neck mass Iron deficiency anemia Lung nodules Thrombocytopenia Breast nodule Breast nodule Neck mass Iron deficiency anemia Lung nodules Thrombocytopenia Chief Complaint NODULE ON NECK, ? CA NCER 2WKS NO LABS REVIEW MAMMO/CT MCC LABWORK L BREAST NODULE L BREAST NODULE LABWORK abd pain 2MO -LABS- 6WKS LABS REVIEW BIOPSY/PATH MCC LAB WORK MCC LAB WORK ABD PAIN Reason for Visit Breast nodule Neck mass Iron deficiency anemia Lung nodules Thrombocytopenia Breast nodule Breast nodule Neck mass Iron deficiency anemia Lung nodules Thrombocytopenia Chief Complaint LABWORK abd pain 2MO -LABS- 6WKS LABS REVIEW BIOPSY/PATH MCC LAB WORK MCC LAB WORK ABD PAIN Reason for Visit Breast nodule Neck mass Iron deficiency anemia Lung nodules Thrombocytopenia Chief Complaint LABWORK abd pain 2MO -LABS- 6WKS LABS REVIEW BIOPSY/PATH MCC LAB WORK MCC LAB WORK ABD PAIN dizziness Reason for Visit Breast nodule Neck mass Iron deficiency anemia Lung nodules Thrombocytopenia Chief Complaint 2MO -LABS- 6WKS LABS REVIEW BIOPSY/PATH MCC LAB WORK MCC LAB WORK ABD PAIN dizziness MCC LABWORK Reason for Visit Breast nodule Neck mass Iron deficiency anemia Lung nodules Thrombocytopenia Chief Complaint MCC LAB WOR K MCC LAB WORK ABD PAIN dizziness MCC LABWORK LABWORK Chief Complaint MCC LAB WOR K MCC LAB WORK ABD PAIN dizziness MCC LABWORK LABWORK DISCUSS OPTIONS-NO LABS 2MO -LABS- abd pain Reason for Visit Hematuria Iron deficiency anemia Lung nodules Thrombocytopenia Chief Complaint MCC LAB WOR K MCC LAB WORK ABD PAIN dizziness MCC LABWORK LABWORK DISCUSS OPTIONS-NO LABS 2MO -LABS- MCC LABWORK abd pain abd pain abd pain Reason for Visit Hematuria Iron deficiency anemia Lung nodules Thrombocytopenia Chief Complaint MCC LAB WOR K ABD PAIN dizziness MCC LABWORK LABWORK DISCUSS OPTIONS-NO LABS 2MO -LABS- MCC LABWORK abd pain abd pain abd pain LEFT BREAST FOLLOW UP FIBROADENOMA Reason for Visit Hematuria Iron deficiency anemia Lung nodules Thrombocytopenia Reason for Referral Specialty Diagnoses / Procedures Referred By Contac t Referred To Contact Diagnoses Encounter for preadmission testing Procedures ECG 12 [place] [address] [place] [address] Referral ID Status Reason Start Date Expiration Date V isits Requested Visits Authorized [id number] Pending Review 10/28/2023 10/27/2024 1 1 Specialty Diagnoses / Procedures Referred By Contac t Referred To Contact Diagnoses Colovaginal fistula Nancy Treviño, BRICK STACKER-ENTRY LEVEL RECEPTIONIST [id number] [facility] Department [place] [address] Referral ID Status Reason Start Date Expiration Date V isits Requested Visits Authorized [id number] Pending Review 09/28/2023 09/27/2024 1 1 Additional Source Comments INFORMATION SOURCE (unrecogn ized section and content) DATE CREATED AUTHOR 05/09/2018 [facility] 1 Sys tem DATE CREATED AUTHOR AUTHOR'S ORGANIZ ATION 07/14/2020 [employer] DATE CREATED AUTHOR AUTHOR'S ORGANIZ ATION 12/01/2021 [facility] DATE CREATED AUTHOR AUTHOR'S ORGANIZ ATION 11/06/2022 [facility] 1 Sys tem [facility] DATE CREATED AUTHOR AUTHOR'S ORGANIZ ATION 09/16/2023 [facility] ([place]) DATE CREATED AUTHOR AUTHOR'S ORGANIZ ATION 10/19/2023 [facility] DATE CREATED AUTHOR AUTHOR'S ORGANIZ ATION 11/13/2023 [facility] DATE CREATED AUTHOR AUTHOR'S ORGANIZ ATION 07/25/2024 [facility] DATE CREATED AUTHOR AUTHOR'S ORGANIZ ATION 09/26/2025 [facility] Care Team (unrecognized sect ion and content) Care Team Personnel Name: BARBER CARLISLE Position: P4 Advanced Practice Nurse Member Role: Primary Care Physician Address: Address: [address] [facility] [place] [address] [facility] [place] [address]- [place] Name: MARIANA RAMOS MD Position: ED Physician Member Role: Attending Physician Address: Address: [address] [place] [address] Care Team Related Persons Name: JOCY RUIZ Address: Home [address] [place], [place] [phone] [place] Name: JOCY RUIZ Address: Home [address] [place], [place] [phone] [place] Name: JOCY RUIZ Address: Home [address] [place], [place] [phone] [place] Name: JOCY RUIZ Address: Home [address] [place], [place] [phone] [place] Name: JOCY RUIZ Address: Home [address] [place], [place] [id number] [place] Name: JOCY RUIZ Address: Home [address] [facility] [place] [place] [id number] [place] Name: JOCY RUIZ Address: Home [address] [place], [place] [phone] [place] Name: JOCY RAMIREZ Care Team Personnel Name: BARBER CARLISLE Position: P4 Advanced Practice Nurse Member Role: Primary Care Physician Address: Address: [address] [facility] [place] [address]- Care Team Related Persons Name: JOCY RUIZ Address: Home [address] [place], [place] [phone] [place] Name: JOCY RUIZ Address: Home [address] [place], [place] [phone] [place] Name: JOCY RUIZ Address: Home [address] [place], [place] [phone] [place] Name: JOCY RUIZ Address: Home [address] [place], [place] [phone] [place] Name: JOCY RUIZ Address: Home [address] [place], [place] [phone] [place] Name: JOCY RUIZ Address: Home [address] [place], [place] [phone] [place] Name: JOCY RUIZ Address: Home [address] [place], [place] [phone] [place] Name: JOCY RAMIREZ Care Team Personnel Name: BARBER CARLISLE Position: P4 Advanced Practice Nurse Med Service: Active Provider Member Role: Primary Care Physician Address: Address: [address] [place], [place] [address] Care Team Related Persons Name: JOCY RUIZ Address: Home [address] [place], [place] [phone] [place] Name: JOCY RUIZ Address: Home [address] [place], [place] [phone] [place] Name: JOCY RUIZ Address: Home [address] [place] [phone] [place] Name: JOCY RUIZ Address: Home [address] [place], [place] [id number] [place] Name: JOCY RUIZ Address: Home [address] [place], [place] [phone] [place] Name: JOCY RUIZ Address: Home [address] [place] [phone] [place] Name: JOCY RUIZ Address: Home [address] [place], [place] [id number] [place] Name: JOCY RAMIREZ Care Team Personnel Name: BARBER CARLISLE Position: P4 Advanced Practice Nurse Med Service: Active Provider Member Role: Primary Care Physician Address: Address: [address] [place], [place] [address] Care Team Related Persons Name: JOCY RUIZ Address: Home [address] [place] [phone] [place] Name: JOCY RUIZ Address: Home [address] [place], [place] [phone] [place] Name: JOCY RUIZ Address: Home [address] [place], [place] [id number] [place] Name: JOCY RUIZ Address: Home [address] [place], [place] [phone] [place] Name: JOCY RUIZ Address: Home [address] [place] [phone] [place] Name: JOCY RUIZ Address: Home [address] [place], [place] [phone] [place] Name: JOCY RUIZ Address: Home [address] [place] [phone] [place] Name: JOCY RAMIREZ Care Team Personnel Name: BARBER CARLISLE Position: P4 Advanced Practice Nurse Med Service: Active Provider Member Role: Primary Care Physician Address: Address: [address] [place] [id number] Care Team Related Persons Name: JOCY RUIZ Address: Home [address] [place] [phone] [place] Name: JOCY RUIZ Address: Home [address] [place] [phone] [place] Name: JOCY RUIZ Address: Home [address] [place], [place] [phone] [place] Name: JOCY RUIZ Address: Home [address] [place], [place] [phone] [place] Name: JOCY RUIZ Address: Home [address] [place], [place] [phone] [place] Name: JOCY RUIZ Address: Home [address] [place], [place] [phone] [place] Name: JOCY RUIZ Address: Home [address] [place], [place] [phone] [place] Name: JOCY RAMIREZ Care Team Personnel Name: BARBER CARLISLE Position: P4 Advanced Practice Nurse Member Role: Primary Care Physician Address: Address: [address] [place], [place] [address] Care Team Related Persons Name: RUIZ, JOCY A Address: [address] [place] [phone] [place] Name: JOCY RUIZ Address: Home [address] [place] [phone] [place] Name: JOCY RUIZ Address: Home [address] [place], [place] [phone] [place] Name: JOCY RUIZ Address: Home [address] [place], [place] [phone] [place] Name: JOCY RUIZ Address: Home [address] [place], [place] [phone] [place] Name: JOCY RUIZ Address: Home [address] [place], [place] [phone] [place] Name: JOCY RUIZ Address: Home [address] [place], [place] [phone] [place] Name: JOCY RAMIREZ Care Team Personnel Name: BARBER CARLISLE Position: P4 Advanced Practice Nurse Member Role: Primary Care Physician Address: Address: [address] Care Team Related Persons Name: JOCY RUIZ Address: Home [address] [place], [place] [id number] [place] Name: JOCY RUIZ Address: [address] [place], [place] [id number] [place] Name: JOCY RUIZ Address: Home [address] [place], [place] [id number] [place] Name: JOCY RUIZ Address: Home [address] [place], [place] [id number] [place] Name: JOCY RUIZ Address: Home [address] [place], [place] [id number] [place] Name: JOCY RUIZ Address: [address] [place], [place] [id number] [place] Name: JOCY RUIZ Address: Home [address] [place], [place] [phone] [place] Name: JOCY RAMIREZ Care Team Personnel Name: BARBER CARLISLE Position: P4 Advanced Practice Nurse Member Role: Primary Care Physician Address: Address: [address] Care Team Related Persons Name: JOCY RUIZ Address: Home [address] [place], [place] [id number] [place] Name: JOCY RUIZ Address: Home [address] [place], [place] [id number] [place] Name: JOCY RUIZ Address: Home [address] [place], [place] [id number] [place] Name: JOCY RUIZ Address: Home [address] [place], [place] [phone] [place] Name: JOCY RUIZ Address: Home [address] [place], [place] [phone] [place] Name: JOCY RUIZ Address: Home [address] [place], [place] [id number] [place] Name: JOCY RUIZ Address: Home [address] [place], [place] [phone] [place] Name: JOCY RAMIREZ Care Team Personnel Name: BARBER CARLISLE APRN-SILVINO Position: P4 Advanced Practice Nurse Member Role: Primary Care Physician Address: Address: [address] [place], [place] [id number] Care Team Related Persons Name: JOCY RUIZ Address: Home [address] [place], [place] [phone] [place] Name: JOCY RUIZ Address: Home [address] [place], [place] [id number] [place] Name: JOCY RUIZ Address: Home [address] [place], [place] [phone] [place] Name: JOCY RUIZ Address: Home [address] [place], [place] [phone] [place] Name: JOCY RUIZ Address: Home [address] [place], [place] [id number] [place] Name: JOCY RUIZ Address: Home [address] [place], [place] [phone] [place] Name: JOCY RUIZ Address: Home [address] [place], [place] [phone] [place] Name: JOCY RAMIREZ Goals (unrecognized section and content) Goals may be documented in a n alternate section Care Teams (unrecognized sec tion and content) Team Status: Active Member Role Status Dates Barber Carlisle SPORTS SPECIALIST, SPORTS SPECIALIST-C Primary Care Provider Active Team Status: Inactive Member Role Status Dates Barber Orestes SPORTS SPECIALIST, SPORTS SPECIALIST-C Primary Care Provider, Referri ng Provider Active Dr. Delfin Jeffries MD Attending Provider Active Team Status: Inactive Member Role Status Dates Barber Orestes SPORTS SPECIALIST, SPORTS SPECIALIST-C Primary Care Provider Active Stef ELMORE Attending Provider Active Team Status: Active Member Role Status Dates Barber Orestes SPORTS SPECIALIST, SPORTS SPECIALIST-C Primary Care Provider Active Dr. Delfin Jeffries MD Attending Provider, Referring Pro vider Active Team Status: Active Member Role Status Dates Barber Orestes SPORTS SPECIALIST, SPORTS SPECIALIST-C Primary Care Provider Active Jonathan ELMORE MD Attending Provider Active Team Status: Active Member Role Status Dates Barber Carlisle SPORTS SPECIALIST, SPORTS SPECIALIST-C Primary Care Provider Active Dr. Ellis Tsai MD Emergency Provider Active Dr. Rebecca Resendiz DO Admit Provider, Attending Provide r Active Team Status: Active Member Role Status Dates Barber Carlisle SPORTS SPECIALIST, SPORTS SPECIALIST-C Primary Care Provider Active Dr. Ellsi Tsai MD Emergency Provider Active Dr. Rebecca Resendiz DO Admit Provider, Att ending Provider, Other Provider Active Dr. Serge Banks MD Other Provider Active Dr. Ajit Mcgill , Other Provider Active Dr. Martín Monique MD Other Provider Active Dr. Krzysztof Pennington MD Other Provider Active Viji Richey SPORTS SPECIALIST, SPORTS SPECIALIST-C Other Provider Active Team Status: Active Member Role Status Dates Barber Orestes SPORTS SPECIALIST, SPORTS SPECIALIST-C Primary Care Provider Active Dr. Ellis Tsai MD Emergency Provider Active Dr. Rebecca Resendiz DO Admit Provider, Other Provider Ac tive Dr. Serge Banks MD Other Provider Active Dr. Ajit Mcgill , Other Provider Active Dr. Martín Monique MD Attending Provider, Other Pro vider Active Dr. Krzysztof Pennington MD Other Provider Active Viji Richey SPORTS SPECIALIST, SPORTS SPECIALIST-C Other Provider Active Dr. Hernando Padron MD Other Provider Active Dr. Thomas Ahumada MD Other Provider Active Team Status: Active Member Role Status Dates Barber Carlisle SPORTS SPECIALIST, SPORTS SPECIALIST-C Primary Care Provider Active Dr. Miroslava Gonzalez MD Attending Provider Active Team Status: Active Member Role Status Dates Barber Carlisle SPORTS SPECIALIST, SPORTS SPECIALIST-C Primary Care Provider Active Dr. Ellis Tsai MD Emergency Provider Active Dr. Rebecca Martín , DO Admit Provider, Other Provider Ac tive Dr. Serge Banks MD Other Provider Active Dr. Ajit Mcgill , DO Other Provider Active Dr. Martín Monique MD Other Provider Active Dr. Krzysztof Pennington MD Other Provider Active Viji Richey NP, SPORTS SPECIALIST-C Other Provider Active Dr. Hernando Padron MD Attending Provider, Other Provid er Active Dr. Thomas Ahumada MD Other Provider Active Team Status: Active Member Role Status Meche Carlisle NP, SPORTS SPECIALIST-C Primary Care Provider Active Dr. Ellis Tsai MD Emergency Provider Active Dr. Rebecca Resendiz , DO Admit Provider, Other Provider Ac tive Dr. Serge Banks MD Other Provider Active Dr. jAit Mcgill , Other Provider Active Dr. Martín Monique MD Other Provider Active Dr. Krzysztof Pennington MD Other Provider Active Viji Richey NP, SPORTS SPECIALIST-C Other Provider Active Dr. Hernando Padron MD Other Provider Active Dr. Thomas Ahumada MD Other Provider Active Dr. Miroslava Gonzalez MD Attending Provider Active Team Status: Active Member Role Status Meche Carlisle SPORTS SPECIALIST, SPORTS SPECIALIST-C Primary Care Provider Active Dr. Moise Austin MD Attending Provider Active Team Status: Active Member Role Status Meche Carlisle NP, SPORTS SPECIALIST-C Primary Care Provider Active Dr. Ellis Tsai MD Emergency Provider Active Dr. Rebecca Resendiz , DO Admit Provider, Other Provider Ac tive Dr. Serge Banks MD Other Provider Active Dr. Ajit Mcgill , Other Provider Active Dr. Martín Monique MD Other Provider Active Dr. Krzysztof Pennington MD Other Provider Active Viji Richey NP, SPORTS SPECIALIST-C Other Provider Active Dr. Hernando Padron MD Other Provider Active Dr. Thomas Ahumada MD Other Provider Active Dr. Pratima Jaime MD Other Provider Active Dr. Miroslava Gonzalez MD Attending Provider Active Team Status: Active Member Role Status Meche Carlisle NP, SPORTS SPECIALIST-C Primary Care Provider Active Dr. Ellis Tsai MD Emergency Provider Active Dr. Rebecca Resendiz , DO Admit Provider, Other Provider Ac tive Dr. Serge Banks MD Attending Provider, Other Provid er Active Dr. Ajit Mcgill , DO Other Provider Active Dr. Martín Monique MD Other Provider Active Dr. Krzysztof Pennington MD Other Provider Active Viji Richey SPORTS SPECIALIST, SPORTS SPECIALIST-C Other Provider Active Dr. Hernando Padron MD Other Provider Active Dr. Thomas Ahumada MD Other Provider Active Dr. Pratima Jaime MD Other Provider Active Team Status: Active Member Role Status Meche Carlisle SPORTS SPECIALIST, SPORTS SPECIALIST-C Primary Care Provider Active Dr. Ellis Tsai MD Emergency Provider Active Dr. Rebecca Resendiz , Admit Provider, Other Provider Ac tive Dr. Serge Banks MD Other Provider Active Dr. Ajit Mcgill DO Other Provider Active Dr. Martín Monique MD Other Provider Active Dr. Krzysztof Pennington MD Other Provider Active Viji Richey SPORTS SPECIALIST, SPORTS SPECIALIST-C Other Provider Active Dr. Hernando Padron MD Other Provider Active Dr. Thomas Ahumada MD Other Provider Active Dr. Pratima Jaime MD Attending Provider, Other Provid er Active Team Status: Inactive Member Role Status Meche Carlisle SPORTS SPECIALIST, SPORTS SPECIALIST-C Primary Care Provider Active Jonathanfausto ELMORE MD Attending Provider Active Team Status: Inactive Member Role Status Meche Carlisle SPORTS SPECIALIST, SPORTS SPECIALIST-C Primary Care Provider Active Dr. Ellis Tsia MD Emergency Provider Active Dr. Rebecca Resendiz , Admit Provider, Other Provider Ac tive Dr. Serge Banks MD Other Provider Active Dr. Ajit Mcgill , Other Provider Active Dr. Martín Monique MD Other Provider Active Dr. Krzysztof Pennington MD Other Provider Active Viji Richey NP, SPORTS SPECIALIST-C Other Provider Active Dr. Hernando Padron MD Other Provider Active Dr. Thomas Ahumada MD Other Provider Active Dr. Pratima Jaime MD Attending Provider Active Team Status: Active Member Role Status Meche Carlisle SPORTS SPECIALIST, SPORTS SPECIALIST-C Primary Care Provider Active Dr. Moise Austin MD Attending Provider Active Dr. Rebecca Resendiz , Referring Provider Active Team Status: Active Member Role Status Meche Carlisle SPORTS SPECIALIST, SPORTS SPECIALIST-C Primary Care Provider Active Dr. Ellis Tsai MD Emergency Provider Active Dr. Rebecca Resendiz , Admit Provider, Other Provider Ac tive Dr. Serge Banks MD Other Provider Active Dr. Ajit Mcgill , Other Provider Active Dr. Martín Monique MD Attending Provider, Other Pro vider Active Dr. Krzysztof Pennington MD Other Provider Active Viji Richey SPORTS SPECIALIST, SPORTS SPECIALIST-C Other Provider Active Dr. Hernando Padron MD Other Provider Active Dr. Thomas Ahumada MD Other Provider Active Dr. Pratima Jaime MD Referring Provider Active Team Status: Active Member Role Status Meche Carlisle SPORTS SPECIALIST, SPORTS SPECIALIST-C Primary Care Provider Active Dr. Ellis Tsai MD Emergency Provider Active Dr. Rebecca Resendiz , Admit Provider, Other Provider Ac tive Dr. Serge Banks MD Attending Provider, Other Provid er Active Dr. Ajit Mcgill DO Other Provider Active Dr. Martín Monique MD Other Provider Active Dr. Krzysztof Pennington MD Other Provider Active Viji Richey SPORTS SPECIALIST, SPORTS SPECIALIST-C Other Provider Active Dr. Hernando Padron MD Other Provider Active Dr. Thomas Ahumada MD Other Provider Active Dr. Pratima Jaime MD Referring Provider, Other Provid er Active Team Status: Inactive Member Role Status Meche Carlisle SPORTS SPECIALIST, SPORTS SPECIALIST-C Primary Care Provider Active Dr. Delfin Jeffries MD Other Provider Active TORRIE COLLAZO Attending Provider, Referring Provider Active Team Status: Inactive Member Role Status Meche Carlisle SPORTS SPECIALIST, SPORTS SPECIALIST-C Primary Care Provider, Referri ng Provider Active Dr. Sharmila Jackson MD Attending Provider Active Team Status: Inactive Member Role Status Meche Carlisle SPORTS SPECIALIST, SPORTS SPECIALIST-C Primary Care Provider Active Dr. Sharmila Jackson [...] Meche Jeffries MD Attending Provider Active Jonathan LEMORE MD Primary Care Provider, Referring Provider Active [...] Dr. Alecia Navarrete MD Attending Provider Active Clinical Leader Relationship Specialty Start Date End Date Barber Carlisle, BRICK STACKER-ENTRY LEVEL RECEPTIONIST [address] [place] [id number] PCP - General 07/04/20 Team Status: Active [...] MD Attending Provider, Referring Provider Active Dr. Jonahtan Dillard Sr. , DO Primary Care Provider Active Clinical Leader Relationship Specialty Start Date End Date Barber Carlisle FREDY Morales PCP - General 07/04/20 Clinical Leader Relationship Specialty Start Date End Date Barber Carlisle FREDY Morales [address] [place] [address] PCP - General Family Medicine 10/27/23 Clinical Leader Relationship Specialty Start Date End Date Barber Carlisle FREDY Morales [address] [place] [address] PCP - General Family Medicine 10/27/23 Clinical Leader Relationship Specialty Start Date End Date Orestes Barber FREDY Morales [address] [place] [address] PCP - General Family Medicine 10/27/23 Reason for Visit (unrecogniz ed section and content) Specialty Diagnoses / Procedures Referred By Contac t Referred To Contact Diagnoses Colovaginal fistula Intestinal Abscess Procedures [place] [address] [address] [facility] [place] [address] [facility] [place] [place] [address] [address] [place] [address] Referral ID Status Reason Start Date Expiration Date Visits Re quested Visits Authorized [id number] 1 1 Specialty Diagnoses / Procedures Referred By Contac t Referred To Contact Diagnoses Encounter for preadmission testing Procedures ECG 12 [place] [address] [place] [address] Referral ID Status Reason Start Date Expiration Date V isits Requested Visits Authorized [id number] Pending Review 10/28/2023 10/27/2024 1 1 Scheduled [...] Lindo RN) 1652 (Given - Provider: Aldo lBood RN)2126 (Given - Provider: Aldo Blood RN) [...] BE BASED ON THE PRIMARY CLINICAL RECORDS. [employer] provides no warranty or guarantee of the accuracy or completeness of information in this document.
[2025-10-16 07:56] LABS: Hematocrit 25.4 % (37-47); Hemoglobin 7.3 g/dL (12.0-15.0)
== END ==
LOC: OLS.ACH 05:00
PROVIDERS: PCP Internal Medicine; Visit Provider Internal Medicine
DX: D50.9 Iron deficiency anemia, unspecified (principal)
CPT/HCPCS: 36415; 85014; 85018

== ENCOUNTER → 2025-10-23 05:00 | Outpatient (REF) | payer MEDICARE, MEDICAID, SELFPAY ==
--- OUTSIDE RECORDS SUMMARY | 2025-10-23 04:42 | XMS RPT_ITS | CCD ---
Author Organization [facility] Care Team Providers Care Insulation Worker Interior Surface Name Role Phone Ellis Martines Unavailable Unavailable PROVIDER, UNKNOWN Unavailable Unavailable Michelle Aguilar Unavailable Unavailab Kandi Zacarias Unavailable Unavailable Barber Carlisle Unavailable Unavailable Pranav Bonds Unavailable Unavailable Update Needed Unavailable Unavailable ORESTES STEAM STATION SUPERVISOR-GRAIN OILSEED OR PASTURE FARM WORKERBARBER Primary Care Physician ORESTES STEAM STATION SUPERVISOR-GRAIN OILSEED OR PASTURE FARM WORKER, BARBER Primary Care Physician ORESTES STEAM STATION SUPERVISOR-GRAIN OILSEED OR PASTURE FARM WORKER, BARBER Primary Care Physician Orestes SCIENTIFIC RESEARCH ASSOCIATE, SCIENTIFIC RESEARCH ASSOCIATE-C Barber Primary Care Provider Orestes SCIENTIFIC RESEARCH ASSOCIATE, SCIENTIFIC RESEARCH ASSOCIATE-C Barber Referring Provider 1([facility] )[phone] Dr. Delfin Jeffries Attending Provider Orestes SCIENTIFIC RESEARCH ASSOCIATE, SCIENTIFIC RESEARCH ASSOCIATE-C Barber Primary Care Provider Orestes SCIENTIFIC RESEARCH ASSOCIATE, SCIENTIFIC RESEARCH ASSOCIATE-C Barber Referring Provider 1([facility] )[phone] Dr. Delfin Jeffries Attending Provider Dr. Ellis Tsai Emergency Provider Dr. Rebecca Resendiz Admit Provider Dr. Rebecca Resendiz Attending Provider [phone] Rebecca Resendiz Other Provider Dr. Serge Banks Other Provider Dr. Ajit Mcgill Other Provider Dr. Martín Monique Other Provider 1([facility])[phone] Krzysztof [place] Other Provider Unavailab rambo Richey SCIENTIFIC RESEARCH ASSOCIATE, SCIENTIFIC RESEARCH ASSOCIATE-C Viji Other Provider Dr. Miroslava Gonzalez Attending Provider Dr. Martín Monique Attending Provider Dr. Hernando Padron Other Provider Unavailable Dr. Thomas Ahumada Other Provider Unavaila Dr. Moise Jo Attending Provider Dr. Hernando Padron Attending Provider Unavailable Dr. Pratima Jaime Attending Provider Dr. Pratima Jaime Other Provider Dr. Serge Banks Attending Provider Dr. Rebecca Resendiz Referring Provider Orestes SCIENTIFIC RESEARCH ASSOCIATE, SCIENTIFIC RESEARCH ASSOCIATE-C Constable Primary Care Provider Orestes SCIENTIFIC RESEARCH ASSOCIATE, SCIENTIFIC RESEARCH ASSOCIATE-C Barber Referring Provider [phone] Dr. Delfin Jeffries Attending Provider Dr. Pratima Jaime Referring Provider Dr. Sharmila Jackson Attending Provider Orestes SCIENTIFIC RESEARCH ASSOCIATE, SCIENTIFIC RESEARCH ASSOCIATE-C Constable Primary Care Provider [phone] Orestes SCIENTIFIC RESEARCH ASSOCIATE, SCIENTIFIC RESEARCH ASSOCIATE-C Barber Referring Provider [phone] Dr. Delfin Jeffries Attending Provider Gilma ELMORE MD Jonathan Primary Care Provider Unava ilable Gilma ELMORE MD Jonathan Referring Provider Unavaila Dr. Delfin Hutchins Attending Provider Dr. Jonathan Dillard Sr. Primary Care Provider Dr. Jonathan Dillard Sr. Referring Provider [phone] Dr. Delfin Jeffries Attending Provider SOLITARIO STUBBS, DR CAMPOS Attending Unavailabl e LORETHAN STEAM STATION SUPERVISOR-GRAIN OILSEED OR PASTURE FARM WORKER, [facility] Unavail renata JEREZ MD, DR CAMPOS Attending Unavailabl e LORETHAN STEAM STATION SUPERVISOR-GRAIN OILSEED OR PASTURE FARM WORKER, [facility] Unavail renata JEREZ MD, DR CAMPOS Attending Unavailabl e LORETHAN STEAM STATION SUPERVISOR-GRAIN OILSEED OR PASTURE FARM WORKER, BARBER Primary Care Unavail able FLIGHT STEAM STATION SUPERVISOR-GRAIN OILSEED OR PASTURE FARM WORKER, RENETTA Attending Unavail able LORSON STEAM STATION SUPERVISOR-GRAIN OILSEED OR PASTURE FARM WORKER, [facility] Care Unavail able CRISSY STUBBS, DR OSEI PACHECO Attending Unav ailable LORSON STEAM STATION SUPERVISOR-GRAIN OILSEED OR PASTURE FARM WORKER, [facility] Care Unavail able FLIGHT STEAM STATION SUPERVISOR-GRAIN OILSEED OR PASTURE FARM WORKER, RENETTA Attending Unavail able LORSON STEAM STATION SUPERVISOR-GRAIN OILSEED OR PASTURE FARM WORKER, [facility] Care Unavail able BYRON STUBBS, TRACE Sprague Attending Unavailable LORSON STEAM STATION SUPERVISOR-GRAIN OILSEED OR PASTURE FARM WORKER, [facility] Care Unavail able Lorson STEAM STATION SUPERVISOR-GRAIN OILSEED OR PASTURE FARM WORKER, [facility] Primary Care Pr ovider Deperro Sr., Dr. Castillo Primary Care Provider [phone] Gilma Sr., Dr. Castillo Referring Provider Dr. Delfin Jeffries Attending Provider Dr. Calvin Hester Emergency Provider Dr. Lucia Jurado Attending Provider Dr. Calvin Hester Referring Provider Dr. Susy Delarosa Attending Provider VARSHA SOTELO Attending Unavail able ORESTES, [facility] Unavaila ble Lorson STEAM STATION SUPERVISOR-GRAIN OILSEED OR PASTURE FARM WORKER, [facility] Pr ovider Lorson STEAM STATION SUPERVISOR-GRAIN OILSEED OR PASTURE FARM WORKER, [facility] Pr ovider ORESTES [facility] Unavaila ble DELFIN MELARA Admitting Unavailable VARSHA SOTELO Attending Unavail able VARSHA SOTELO Admitting Unavail able VARSHA SOTELO Attending Unavail able ORESTES, [facility] Unavaila ble LORSON, [facility] Unavaila ble LORSON, [facility] Unavaila ble ELIDA VILLAREAL Attending Unavailable LORSON, [facility] Care Unavaila ble LORSON, [facility] Care Unavaila ble RITU HARRELL Referring Unavailable LORSON, [facility] Unavaila ble Deperro OLS, Jonathan Attending Unavailable Deperro OLS, Jonathan Referring Unavailable Deperro Sr., Jonathan Primary Care Unavailable Deperro OLS, Jonathan Referring Unavailable Deperro Sr., Jonathan Primary Care Unavailable Deperro OLS, Jonahtan Attending Unavailable Deperro Sr., Jonathan Primary Care [...] sources) cyclobenzaprine; Translations: [cyclobenzaprine] Drug Allergy 3 [facility] (20 sources) tiZANidine; Translations: [tizanidine] Drug Allergy 3 [facility] (6 sources) Acetaminophen / oxyCODONE; Translations: [OXYCODONE-ACETAMIN OPHEN] Drug Allergy 6 Palpitations [facility] 3 Repository (1 source) cyclobenzaprine Drug Allergy 5 [facility] Repository (1 source) tiZANidine Drug Allergy 5 [facility] Repository Medications Current Medications Medication Drug [...] 19, 2023 12:00am take 2 tablets by nm ut once daily at bedtime acetaminophen (Tylenol) [...] preference, # 1 EA, 0 Refill(s), Pharmacy: [facility] 166, cm, 09/09/20 11:16:00 [...] 60 cap(s), 11 Refill(s), Pharmacy: [facility], 166, cm, 09/09/20 11:16:00 EDT, Height, [...] diabetes, # 1 EA, 0 Refill(s), Pharmacy: [facility], 165, cm, 01/16/21 13:33:00 EST, Height, 94.9, kg, 09/16/21 13:29:00 EDT, Dosing Weight Start Date: 09/28/21 Status: Ordered Start: 09-23-2021 DME MISCellane ous See Instructions, True Plus Lancets check blood sugar once daily. #1 box for 90 day supply x 0 refills Dx: diabetes, # 1 EA, 3 Refill(s), Pharmacy: [facility], Diabetes, 165, cm, 01/16/21 13:33:00 EST, Height, 94.9, kg, 09/16/21... Start Date: 09/23/21 Status: Ordered Start: 04-30-2021 DME MISCellane ous See Instructions, True Plus Lancets check blood sugar once daily. #1 box for 90 day supply x 0 refills Dx: diabetes, # 1 EA, 0 Refill(s), Pharmacy: [facility], Diabetes, 165, cm, 01/16/21 13:33:00 EST, Height, 96.36, kg, ... Start Date: 04/30/21 Status: Ordered Start: 04-30-2021 DME MISCellane ous See Instructions, Alcohol Pads Use as directed Dispense 90 day supply x 0 refills DX: diabetes, # 1 EA, 0 Refill(s), Pharmacy: [facility], 165, cm, 01/16/21 [...] Ordered docusate sodium 50 mg / sennosides, correction 8.6 mg oral tablet (20 sources) Start: [...] at 2000 Indications: venous thrombosis estrogens, conjugated (correction) 0.625 mg/ml vaginal cream (8 sources) Estrogen [...] # 16 gram(s), 11 Refill(s), [facility] [address] 166, cm, 09/09/20 11:16:00 EDT, Height, kg, 09/09/20 11:16:00 EDT, Dosing Weight Start Date: 10/28/20 Status: Ordered folic acid 1 mg oral tablet (20 sources) Start: 11-11-2022 take 1 mg by mouth once daily Folic Acid Active 1 MG PO DAILY November 11, 2022 12:00am Freestyle Elizabeth 14 day sensor (1 source) Start: 09-16-2021 Freestyle Read er 14 day sensor See Instructions, 1 month supply, # 2 EA, 0 Refill(s), Pharmacy: [facility], 165, cm, 01/16/21 [...] qDay, # 30 tab(s), 3 Refill(s), Pharmacy: [facility], Diarrhea Diabetes mellitus [...] qDay, # 90 tab(s), 3 Refill(s), Pharmacy: [facility], 165vira, 05/04/22 10:05:00 EDT, [...] qDay, # 90 tab(s), 3 Refill(s), Pharmacy: [facility], vira Covarrubias, 01/16/21 13:33:00 EST, Height, kg, 04/06/21 13:21:00 EDT, Dosing Weight Start Date: 04/22/21 Status: Ordered Start: 06-11-2013 take 1 tablet by [facility] every twenty-four hours Metoprolol Succinate ER [...] qDay, # 90 tab(s), 3 Refill(s), Pharmacy: [facility], 165, cm, 05/04/22 [...] qDay, # 90 tab(s), 3 Refill(s), Pharmacy: [facility], 165, cm, 01/16/21 13:33:00 EST, Height, kg, 04/06/21 13:21:00 EDT, Dosing Weight Start Date: 04/22/21 Status: Ordered nitroglycerin 0.4 mg sublingual tablet (3 sources) Start: 04-22-2021 nitroglycerin 0.4 mg sublingual tablet See Instructions, DISSOLVE 1 TABLET UNDER THE TONGUE NEEDED FOR CHEST PAIN EVERY 5 MINUTES UP TO 3 TIMES. IF NO RELIEF CALL 911., # 25 tab(s), 0 Refill(s), Pharmacy: [facility], 165, cm, 01/16/21 13:33:00 EST, Height, kg, ... Start Date: 04/22/21 Status: Ordered nystatin 100,000 units/g topical cream (1 source) Start: 09-16-2021 End: 12-09-2021 nystatin 100,000 units/g topical cream Apply 1 marcy, Topical, BID, X 14 day(s), # 30 gram(s), 5 Refill(s), Pharmacy: [facility], Cream, 165, cm, [...] Start: 08-09-2023 take 2 tablets by [facility] once daily Cyanocobalamin (Vitamin B-12) (B-12 Dots) [...] 2X/week, # 42.5 gram(s), 11 Refill(s), [facility], 165, cm, 01/06/22 9:22:00 [...] once daily. For 7 days ending 09/20/23. ([employer] Ultimate Jie Probiotic 15 BILLION per SNF list) 0 09/27/2023 10/31/2023 Discontinued (Discontinued by another clinician) Start: 09-27-2023 take 1 capsule by [facility] once daily L. acidophilus-L. rhamnosus (Probiotic) 15 billion cell capsule Indications: Dilated cardiomyopathy (CMS/HCC) Take 1 capsule by mouth once daily. For 7 days ending 09/20/23. ([employer] Ultimate Jie Probiotic 15 BILLION per SNF [...] Daily, # 90 tab(s), 3 Refill(s), Pharmacy: [facility], 165, cm, 01/16/21 [...] Date: 07/20/22 Status: Ordered polyethylene glycol 3350 33093 mg powder for oral solution (20 sources) [...] Date: 07/20/22 Status: Ordered polyethylene glycol 3350 276178 mg / potassium chloride 2970 mg / sodium bicarbonate 6740 mg / sodium chloride 5860 mg / sodium sulfate 23008 mg powder for oral solution (1 source) [...] Oncology Visit Reporton 09-14 Oncology Visit Report [facility] [address] [place] [id number] OFFICE VISIT Date of Service: 09/26/25 0934 MR#: [id number] Acct: [id number] Name: POLI RAMIREZ Rep #: [id number] : 1950 From: Delfin Jeffries MD Age/Sex: 74/F Location: [facility] [...] do Oral Iron supplements. Was seen in [facility], CT chest on 02/18/2023 showed L breast nodule, multiple small lung nodules. CT neck done on 03/18/2023 showed post operative changes. Got iron infusion at [place]. Comes for follow up, found to have Anemia and referred for follow up. Has Folley's Cath in place. [facility] Medical History Colitis On mechanically assisted ventilation [...] Breast cancer Grandmother Diabetes Social History housing: half-way Smoking Status: Former smoker alcohol intake: never [...] bisacodyl 10 mg rectal suppository 10 mg OR DAILY PRN constipation 11/11/22 09/26/25 History acetaminophen [...] pain 09/26 (more content not included)... Normal [facility] HH, Hemoglobin AND Hematocri ton 09-25-2025 Hematocrit (Bld) [Volume fraction] 24.6 % Low 37-47 [facility] Comment on above: Order Comment: 310-2 Performed By: #### L 100.0600 #### [facility] [address] [place], [address] Hemoglobin (Bld) [Mass/Vol] 7.3 g/dL Low 12.0-15.0 [facility] Comment on above: Order Comment: 310-2 Performed By: #### L 100.0600 #### [facility] [address] [place], [address] CBC-Complete Blood Cnt No Di ffon 09-18-2025 Erythrocyte distribution width (RBC) [Ratio] 14.2 % Normal 11.6-14.6 [facility] Comment on above: Order Comment: 310.2 Performed By: #### L 500.4050, L100.0500 #### [facility] [address] [place], [address] Hematocrit (Bld) [Volume fraction] 24.5 % Low 37-47 [facility] Comment on above: Order Comment: 310.2 Performed By: #### L 500.4050, L100.0500 #### [facility] [address] [place], [address] Hemoglobin (Bld) [Mass/Vol] 7.3 g/dL Low 12.0-15.0 [facility] Comment on above: Order Comment: 310.2 Performed By: #### L 500.4050, L100.0500 #### [facility] [address] [place], [address] MCH (RBC) [Entitic mass] 28.0 pg Normal 27.0-32.0 [facility] Comment on above: Order Comment: 310.2 Performed By: #### L 500.4050, L100.0500 #### [facility] [address] [place], [address] MCHC (RBC) [Mass/Vol] 29.8 g/dL Low 32-36 [facility] Comment on above: Order Comment: 310.2 Performed By: #### L 500.4050, L100.0500 #### [facility] [address] [place], [address] MCV (RBC) [Entitic vol] 93.9 fL Normal 81-99 [facility] Comment on above: Order Comment: 310.2 Performed By: #### L 500.4050, L100.0500 #### [facility] [address] [place], [address] Platelet mean volume (Bld) [Entitic vol] 9.5 fL Normal 6.2-12.0 [facility] Comment on above: Order Comment: 310.2 Performed By: #### L 500.4050, L100.0500 #### [facility] [address] [place], [address] Platelets (Bld) [#/Vol] 83 10*3/uL Low 150-450 [facility] Comment on above: Order Comment: 310.2 Performed By: #### L 500.4050, L100.0500 #### [facility] [address] [place], [address] RBC (Bld) [#/Vol] 2.61 10*6/uL Low 4.2-5.4 [facility] Comment on above: Order Comment: 310.2 Performed By: #### L 500.4050, L100.0500 #### [facility] [address] [place], [address] RDW SD 47.9 fl High 35.1-43.9 [facility] Comment on above: Order Comment: 310.2 Performed By: #### L 500.4050, L100.0500 #### [facility] [address] [place], [address] WBC (Bld) [#/Vol] 4.3 10*3/uL Low 4.4-11.0 [facility] Comment on above: Order Comment: 310.2 Performed By: #### L 500.4050, L100.0500 #### [facility] [address] [place], [address] Differential Commenton 09-18 SMEAR COMMENT SCANNED Normal [facility] Comment on above: Order Comment: 310.2 Performed By: #### L 500.4050, L100.0500 #### [facility] [address] [place], [address] HH, Hemoglobin AND Hematocri ton 09-11-2025 Hematocrit (Bld) [Volume fraction] 28.5 % Low 37-47 [facility] Comment on above: Order Comment: 310.2 Performed By: #### L 500.4050, L100.0500 #### [facility] [address] [place], [address] Hemoglobin (Bld) [Mass/Vol] 8.4 g/dL Low 12.0-15.0 [facility] Comment on above: Order Comment: 310.2 Performed By: #### L 500.4050, L100.0500 #### [facility] [address] [place], [address] Basic Metabolic Profile (BMP )on 09-10-2025 BUN/CRE 15.9 RATIO Normal 10-20 [facility] Comment on above: Performed By: #### L 100.0500, L500.2500, BTS #### [facility] [address] [place], [address] Calcium [Mass/Vol] 8.5 mg/dL Normal 7.6-11.0 [facility] Comment on above: Performed By: #### L 100.0500, L500.2500, BTS #### [facility] [address] [place], [address] Chloride [Moles/Vol] 101 mmol/L Normal 98-108 [facility] Comment on above: Performed By: #### L 100.0500, L500.2500, BTS #### [facility] [address] [place], [address] CO2 [Moles/Vol] 34.5 mmol/L High 21.0-32.0 [facility] Comment on above: Performed By: #### L 100.0500, L500.2500, BTS #### [facility] [address] [place], [address] Creatinine [Mass/Vol] 0.82 mg/dL Normal 0.70-1.20 [facility] Comment on above: Performed By: #### L 100.0500, L500.2500, BTS #### [facility] [address] [place], [address] ECRCL 62.66 ml/min Normal 50-250 [facility] Comment on above: Performed By: #### L 100.0500, L500.2500, BTS #### [facility] [address] [place], [address] GAP 9 Normal 5-15 [facility] Comment on above: Performed By: #### L 100.0500, L500.2500, BTS #### [facility] [address] [place], [address] GFR/1.73 sq M.predicted among non-blacks MDRD (S/P/Bld) [Vol rate/Area] 74 mL/min/{1.73_m2} Normal >60 [facility] Comment on above: Result Comment: mL/m in/1.73m2 CKD-EPI Creatinine Equation (2020) Performed By: #### L 100.0500, L500.2500, BTS #### [facility] [address] [place], [address] Glucose [Mass/Vol] 182 mg/dL High 70-99 [facility] Comment on above: Performed By: #### L 100.0500, L500.2500, BTS #### [facility] [address] [place], [address] Potassium [Moles/Vol] 4.3 mmol/L Normal 3.3-5.1 [facility] Comment on above: Result Comment: Hemo lysis present, Results??could be affected. ?? Performed By: #### L 100.0500, L500.2500, BTS #### [facility] [address] [place], [address] Sodium [Moles/Vol] 145 mmol/L Normal 133-145 [facility] Comment on above: Performed By: #### L 100.0500, L500.2500, BTS #### [facility] [address] [place], [address] Urea nitrogen [Mass/Vol] 13 mg/dL Normal 4-19 [facility] Comment on above: Performed By: #### L 100.0500, L500.2500, BTS #### [facility] [address] [place], [address] CBC-Complete Blood Cnt No Di ffon 09-10-2025 Erythrocyte distribution width (RBC) [Ratio] 14.3 % Normal 11.6-14.6 [facility] Comment on above: Performed By: #### L 100.0500, L500.2500, BTS #### [facility] [address] [place], [address] Hematocrit (Bld) [Volume fraction] 26.5 % Low 37-47 [facility] Comment on above: Performed By: #### L 100.0500, L500.2500, BTS #### [facility] [address] [place], [address] Hemoglobin (Bld) [Mass/Vol] 7.9 g/dL Low 12.0-15.0 [facility] Comment on above: Performed By: #### L 100.0500, L500.2500, BTS #### [facility] [address] [place], [address] MCH (RBC) [Entitic mass] 27.8 pg Normal 27.0-32.0 [facility] Comment on above: Performed By: #### L 100.0500, L500.2500, BTS #### [facility] [address] [place], [address] MCHC (RBC) [Mass/Vol] 29.8 g/dL Low 32-36 [facility] Comment on above: Performed By: #### L 100.0500, L500.2500, BTS #### [facility] [address] [place], [address] MCV (RBC) [Entitic vol] 93.3 fL Normal 81-99 [facility] Comment on above: Performed By: #### L 100.0500, L500.2500, BTS #### [facility] [address] [place], [address] Platelet mean volume (Bld) [Entitic vol] 10.7 fL Normal 6.2-12.0 [facility] Comment on above: Performed By: #### L 100.0500, L500.2500, BTS #### [facility] [address] [place], [address] Platelets (Bld) [#/Vol] 111 10*3/uL Low 150-450 [facility] Comment on above: Performed By: #### L 100.0500, L500.2500, BTS #### [facility] [address] [place], [address] RBC (Bld) [#/Vol] 2.84 10*6/uL Low 4.2-5.4 [facility] Comment on above: Performed By: #### L 100.0500, L500.2500, BTS #### [facility] [address] [place], [address] RDW SD 48.1 fl High 35.1-43.9 [facility] Comment on above: Performed By: #### L 100.0500, L500.2500, BTS #### [facility] [address] [place], [address] WBC (Bld) [#/Vol] 5.1 10*3/uL Normal 4.4-11.0 [facility] Comment on above: Performed By: #### L 100.0500, L500.2500, BTS #### [facility] [address] [place], [address] Emergency Department Summary on 09-10-2025 Emergency Department Summary [facility] Medical Records Department [address] [place] [address] Emergency Department Summary 09/10/25 MR#: [id number] Acct: [id number] Name: POLI RAMIREZ Rep #: [id number] : 1950 74 From: Royce Vigil MD [...] Symptoms: Patient denies orthostatic symptoms or dyspnea, [place] exertion, chest bigg Narrative Narrative: Patient is [...] Prior similar symptoms: Yes Recent Illness[facility] Medical History Colitis On mechanically assisted ventilation [...] bisacodyl 10 mg rectal suppository 10 mg OR DAILY PRN constipation 11/11/22 Unknown History cranberry [...] constipation Unkno (more content not included)... Normal [facility] Stool Occult Blood iFOBon STOB Positive Normal [facility] Comment on above: Performed By: #### M 100.7900 #### [facility] [address] [place], [address] Type AND Screenon 09-10-2025 Ab SCREEN GEL Negative Normal [facility] Comment on above: Order Comment: HGI Performed By: #### L 100.0500, L500.2500, BTS #### [facility] [address] [place], [address] HH, Hemoglobin AND Hematocri ton 09-09-2025 Hematocrit (Bld) [Volume fraction] 24.4 % Low 37-47 [facility] Comment on above: Order Comment: 310.2 Performed By: #### L 500.4050, L100.0500 #### [facility] [address] [place], [address] Hemoglobin (Bld) [Mass/Vol] 7.0 g/dL Low 12.0-15.0 [facility] Comment on above: Order Comment: 310.2 Performed By: #### L 500.4050, L100.0500 #### [facility] [address] [place], [address] Ferritinon 09-06-2025 Ferritin [Mass/Vol] 52 ng/mL Normal 22-378 [facility] Comment on above: Order Comment: 310.2 Performed By: #### L 500.4050, L100.0500 #### [facility] [address] [place], [address] Iron+Iron Binding Capacityon 09-06-2025 TIBC 182 ug/dL Low 250-450 [facility] Comment on above: Order Comment: 310.2 Performed By: #### L 500.4050, L100.0500 #### [facility] [address] [place], [address] Vitamin B12on 09-06-2025 Cobalamin (Vitamin B12) [Mass/Vol] 195 pg/mL Normal 180-914 [facility] Comment on above: Order Comment: 310.2 Performed By: #### L 500.4050, L100.0500 #### [facility] [address] [place], [address] CBC-Complete Blood Cnt No Di ffon 09-04-2025 Platelets (Bld) [#/Vol] 91 10*3/uL Low 150-450 [facility] Comment on above: Order Comment: 310.2 Performed By: #### L 100.0500, L500.4050, L501.9985 #### [facility] [address] [place], [address] Comprehensive Metabolic Prof ilon 09-04-2025 Albumin [Mass/Vol] 3.4 g/dL Normal 3.4-4.8 [facility] Comment on above: Order Comment: 310.2 Performed By: #### L 500.4050, L100.0500 #### [facility] [address] [place], [address] Albumin/Globulin [Mass ratio] 1.2 {ratio} Normal 0.9-2.4 [facility] Comment on above: Order Comment: 310.2 Performed By: #### L 500.4050, L100.0500 #### [facility] [address] [place], [address] ALK PHOS 61 U/L Normal 35-104 [facility] Comment on above: Order Comment: 310.2 Performed By: #### L 500.4050, L100.0500 #### [facility] [address] [place], [address] ALT [Catalytic activity/Vol] U/L Normal <=34 [facility] Comment on above: Order Comment: 310.2 Performed By: #### L 500.4050, L100.0500 #### [facility] [address] [place], [address] AST [Catalytic activity/Vol] 14 U/L Normal <=31 [facility] Comment on above: Order Comment: 310.2 Performed By: #### L 500.4050, L100.0500 #### [facility] [address] [place], [address] Bilirubin [Mass/Vol] 0.22 mg/dL Normal 0.00-1.30 [facility] Comment on above: Order Comment: 310.2 Performed By: #### L 500.4050, L100.0500 #### [facility] [address] [place], [address] BUN/CRE 29.8 RATIO High 10-20 [facility] Comment on above: Order Comment: 310.2 Performed By: #### L 500.4050, L100.0500 #### [facility] [address] [place], [address] Calcium [Mass/Vol] 8.4 mg/dL Normal 7.6-11.0 [facility] Comment on above: Order Comment: 310.2 Performed By: #### L 500.4050, L100.0500 #### [facility] [address] [place], [address] Chloride [Moles/Vol] 104 mmol/L Normal 98-108 [facility] Comment on above: Order Comment: 310.2 Performed By: #### L 500.4050, L100.0500 #### [facility] [address] [place], [address] CO2 [Moles/Vol] 35.7 mmol/L High 21.0-32.0 [facility] Comment on above: Order Comment: 310.2 Performed By: #### L 500.4050, L100.0500 #### [facility] [address] [place], [address] Creatinine [Mass/Vol] 0.53 mg/dL Low 0.70-1.20 [facility] Comment on above: Order Comment: 310.2 Performed By: #### L 500.4050, L100.0500 #### [facility] [address] [place], [address] GAP 7 Normal 5-15 [facility] Comment on above: Order Comment: 310.2 Performed By: #### L 500.4050, L100.0500 #### [facility] [address] [place], [address] GFR/1.73 sq M.predicted among non-blacks MDRD (S/P/Bld) [Vol rate/Area] 96 mL/min/{1.73_m2} Normal >60 [facility] Comment on above: Order Comment: 310.2 Result Comment: mL/m in/1.73m2 CKD-EPI Creatinine Equation (2020) Performed By: #### L 500.4050, L100.0500 #### [facility] [address] [place], [address] Globulin (S) [Mass/Vol] 2.7 g/dL Normal 2.2-4.2 [facility] Comment on above: Order Comment: 310.2 Performed By: #### L 500.4050, L100.0500 #### [facility] [address] [place], [address] Glucose [Mass/Vol] 118 mg/dL High 70-99 [facility] Comment on above: Order Comment: 310.2 Performed By: #### L 500.4050, L100.0500 #### [facility] [address] [place], [address] Potassium [Moles/Vol] 3.8 mmol/L Normal 3.3-5.1 [facility] Comment on above: Order Comment: 310.2 Performed By: #### L 500.4050, L100.0500 #### [facility] [address] [place], [address] Sodium [Moles/Vol] 146 mmol/L High 133-145 [facility] Comment on above: Order Comment: 310.2 Performed By: #### L 500.4050, L100.0500 #### [facility] [address] [place], [address] T PROT 6.1 g/dL Normal 5.9-8.4 [facility] Comment on above: Order Comment: 310.2 Performed By: #### L 500.4050, L100.0500 #### [facility] [address] [place], [address] Urea nitrogen [Mass/Vol] 16 mg/dL Normal 4-19 [facility] Comment on above: Order Comment: 310.2 Performed By: #### L 500.4050, L100.0500 #### [facility] [address] [place], [address] Hemoglobin A1con 09-04-2025 HbA1c (Bld) [Mass fraction] % Normal <=5.6 [facility] Comment on above: Order Comment: 310.2 Result Comment: Norm al < 5.7 % Prediabetic 5.7 - 6.4 % Diabetic >or= 6.5 % Please note range changes. Performed By: #### L 500.4050, L100.0500 #### [facility] [address] [place], [address] CBC-Complete Blood Cnt No Di ffon 09-03-2025 HCT Normal 37-47 [facility] Comment on above: Order Comment: 310.2 Result Comment: KELLY CHAVEZ SUSY @610. TRY 09/04/25 Performed By: #### L 500.4050, L100.0500 #### [facility] [address] [place], [address] HGB Normal 12.0-15.0 [facility] Comment on above: Order Comment: 310.2 Result Comment: KELLY CHAVEZ SUSY @610. TRY 09/04/25 Performed By: #### L 500.4050, L100.0500 #### [facility] [address] [place], [address] MCH Normal 27.0-32.0 [facility] Comment on above: Order Comment: 310.2 Result Comment: KELLY CHAVEZ SUSY @610. TRY 09/04/25 Performed By: #### L 500.4050, L100.0500 #### [facility] [address] [place], [address] MCHC Normal 32-36 [facility] Comment on above: Order Comment: 310.2 Result Comment: KELLY CHAVEZ SUSY @610. TRY 09/04/25 Performed By: #### L 500.4050, L100.0500 #### [facility] [address] [place], [address] MCV Normal 81-99 [facility] Comment on above: Order Comment: 310.2 Result Comment: KELLY JAIN @610. TRY 09/04/25 Performed By: #### L 500.4050, L100.0500 #### [facility] [address] [place], [address] PLT Normal 150-450 [facility] Comment on above: Order Comment: 310.2 Result Comment: KELLY JAIN @610. TRY 09/04/25 Performed By: #### L 500.4050, L100.0500 #### [facility] [address] [place], [address] RBC Normal 4.2-5.4 [facility] Comment on above: Order Comment: 310.2 Result Comment: KELLY JAIN @610. TRY 09/04/25 Performed By: #### L 500.4050, L100.0500 #### [facility] [address] [place], [address] RDW CV Normal 11.6-14.6 [facility] Comment on above: Order Comment: 310.2 Result Comment: KELLY JAIN @610. TRY 09/04/25 Performed By: #### L 500.4050, L100.0500 #### [facility] [address] [place], [address] RDW SD Normal 35.1-43.9 [facility] Comment on above: Order Comment: 310.2 Result Comment: KELLY JAIN @610. TRY 09/04/25 Performed By: #### L 500.4050, L100.0500 #### [facility] [address] [place], [address] WBC Normal 4.4-11.0 [facility] Comment on above: Order Comment: 310.2 Result Comment: KELLY JAIN @610. TRY 09/04/25 Performed By: #### L 500.4050, L100.0500 #### [facility] [address] [place], [address] Comprehensive Metabolic Prof iljose d 09-03-2025 ALB Normal 3.4-4.8 [facility] Comment on above: Order Comment: 310.2 Result Comment: KELLY TOLD SUSY @610. TRY 09/04/25 Performed By: #### L 500.4050, L100.0500 #### [facility] [address] [place], [address] ALK PHOS Normal 35-104 [facility] Comment on above: Order Comment: 310.2 Result Comment: UTO TOLD SUSY @610. TRY 09/04/25 Performed By: #### L 500.4050, L100.0500 #### [facility] [address] [place], [address] ALT Normal <=34 [facility] Comment on above: Order Comment: 310.2 Result Comment: UTO TOLD SUSY @610. TRY 09/04/25 Performed By: #### L 500.4050, L100.0500 #### [facility] [address] [place], [address] AST Normal <=31 [facility] Comment on above: Order Comment: 310.2 Result Comment: KELLY TOLD SUSY @610. TRY 09/04/25 Performed By: #### L 500.4050, L100.0500 #### [facility] [address] [place], [address] BUN Normal 4-19 [facility] Comment on above: Order Comment: 310.2 Result Comment: KELLY TOLD SUSY @610. TRY 09/04/25 Performed By: #### L 500.4050, L100.0500 #### [facility] [address] [place], [address] BUN/CRE Normal 10-20 [facility] Comment on above: Order Comment: 310.2 Result Comment: UTO TOLD SUSY @610. TRY 09/04/25 Performed By: #### L 500.4050, L100.0500 #### [facility] [address] [place], [address] Calcium Normal 7.6-11.0 [facility] Comment on above: Order Comment: 310.2 Result Comment: KELLY JAIN @610. TRY 09/04/25 Performed By: #### L 500.4050, L100.0500 #### [facility] [address] [place], [address] CL Normal 98-108 [facility] Comment on above: Order Comment: 310.2 Result Comment: KELLY JAIN @610. TRY 09/04/25 Performed By: #### L 500.4050, L100.0500 #### [facility] [address] [place], [address] CO2 Normal 21.0-32.0 [facility] Comment on above: Order Comment: 310.2 Result Comment: KELLY JAIN @610. TRY 09/04/25 Performed By: #### L 500.4050, L100.0500 #### [facility] [address] [place], [address] CREAT,SERUM Normal 0.70-1.20 [facility] Comment on above: Order Comment: 310.2 Result Comment: KELLY JAIN @610. TRY 09/04/25 Performed By: #### L 500.4050, L100.0500 #### [facility] [address] [place], [address] eGFR Normal >60 [facility] Comment on above: Order Comment: 310.2 Result Comment: KELLY JAIN @610. TRY 09/04/25 Performed By: #### L 500.4050, L100.0500 #### [facility] [address] [place], [address] GAP Normal 5-15 [facility] Comment on above: Order Comment: 310.2 Result Comment: KELLY JAIN @610. TRY 09/04/25 Performed By: #### L 500.4050, L100.0500 #### [facility] [address] [place], [address] GLU Normal 70-99 [facility] Comment on above: Order Comment: 310.2 Result Comment: KELLY JAIN @610. TRY 09/04/25 Performed By: #### L 500.4050, L100.0500 #### [facility] [address] [place], [address] Potassium Normal 3.3-5.1 [facility] Comment on above: Order Comment: 310.2 Result Comment: KELLY JAIN @610. TRY 09/04/25 Performed By: #### L 500.4050, L100.0500 #### [facility] [address] [place], [address] T BILI Normal 0.00-1.30 [facility] Comment on above: Order Comment: 310.2 Result Comment: KELLY JAIN @610. TRY 09/04/25 Performed By: #### L 500.4050, L100.0500 #### [facility] [address] [place], [address] T PROT Normal 5.9-8.4 [facility] Comment on above: Order Comment: 310.2 Result Comment: KELLY JAIN @610. TRY 09/04/25 Performed By: #### L 500.4050, L100.0500 #### [facility] [address] [place], [address] Comprehensive Metabolic Profil Normal 133-145 [facility] Comment on above: Order Comment: 310.2 Result Comment: KELLY JAIN @610. TRY 09/04/25 Performed By: #### L 500.4050, L100.0500 #### [facility] [address] [place], [address] CBC panel Auto (Bld)on 10-31 Erythrocyte distribution width (RBC) [Ratio] 14.4 % Normal 11.5-14.5 [facility] Comment on above: Performed By: #### 1 9123-9 #### BEVERLEY Poe ([id number]) [facility] ([facility]) [id number] [place] [address] Hematocrit (Bld) [Volume fraction] 33.5 % Low 36.0-46.0 [facility] Comment on above: Performed By: #### 1 9123-9 #### BEVERLEY Poe ([id number]) [facility] ([facility]) [address] [place] [address] Hemoglobin (Bld) [Mass/Vol] 10.0 g/dL Low 12.0-16.0 [facility] Comment on above: Performed By: #### 1 9123-9 #### BEVERLEY Poe ([id number]) [facility] ([facility]) [id number] [place] [address] MCH (RBC) [Entitic mass] 31.2 pg Normal 26.0-34.0 [facility] Comment on above: Performed By: #### 1 9123-9 #### BEVERLEY Poe ([id number]) [facility] ([facility]) [address] [place] [address] MCHC (RBC) [Mass/Vol] 29.9 g/dL Low 32.0-36.0 [facility] Comment on above: Performed By: #### 1 9123-9 #### BEVERLEY Poe ([id number]) [facility] ([facility]) [address] [place] [address] 285[address] MCV (RBC) [Entitic vol] 104 fL High 80-100 [facility] Comment on above: Performed By: #### 1 9123-9 #### BEVERLEY Poe ([id number]) [facility] ([facility]) [id number] [place] [address] Nucleated RBC/100 WBC (Bld) [Ratio] 0.0 /100 WBCs Normal 0.0-0.0 [facility] Comment on above: Performed By: #### 1 9123-9 #### BEVERLEY Poe ([id number]) [facility] ([facility]) [id number] [place] [address] Platelets (Bld) [#/Vol] 112 x10*3/uL Low 150-450 [facility] Comment on above: Performed By: #### 1 9123-9 #### BEVERLEY Poe ([id number]) [facility] ([facility]) [address] [place] [address] 20588 RBC (Bld) [#/Vol] 3.21 x10*6/uL Low 4.00-5.20 [facility] Comment on above: Performed By: #### 1 9123-9 #### BEVERLEY oPe ([id number]) [facility] ([facility]) [address] [place] [address] WBC (Bld) [#/Vol] 4.6 x10*3/uL Normal 4.4-11.3 [facility] Comment on above: Performed By: #### 1 9123-9 #### BEVERLEY Poe ([id number]) [facility] ([facility]) [address] [place] [address] Comprehensive metabolic 2000 panelon 10-31-2023 Albumin BCP dye [Mass/Vol] 3.6 g/dL Normal 3.4-5.0 [facility] Comment on above: Performed By: #### 1 9123-9 #### BEVERLEY Poe ([id number]) [facility] ([facility]) [address] [place] [address] ALP [Catalytic activity/Vol] 58 U/L Normal 33-136 [facility] Comment on above: Performed By: #### 1 9123-9 #### BEVERLEY Poe ([id number]) [facility] ([facility]) [id number] [place] [address] ALT With P-5'-P [Catalytic activity/Vol] 16 U/L Normal 7-45 [facility] Comment on above: Result Comment: Ирина ents treated with Sulfasalazine may generate falsely decreased results for ALT. Performed By: #### 1 9123-9 #### BEVERLEY Poe ([id number]) [facility] ([facility]) [address] [place] [address] Anion gap [Moles/Vol] 8 mmol/L Low 10-20 [facility] Comment on above: Performed By: #### 1 9123-9 #### BEVERLEY Poe ([id number]) [facility] ([facility]) [address] [place] [address] AST With P-5'-P [Catalytic activity/Vol] 14 U/L Normal 9-39 [facility] Comment on above: Performed By: #### 1 9123-9 #### BEVERLEY Poe ([id number]) [facility] ([facility]) [address] [place] [address] Bilirubin [Mass/Vol] 0.5 mg/dL Normal 0.0-1.2 [facility] Comment on above: Performed By: #### 1 9123-9 #### BEVERLEY Poe ([id number]) [facility] ([facility]) [address] [place] [address] Calcium [Mass/Vol] 9.3 mg/dL Normal 8.6-10.6 [facility] Comment on above: Performed By: #### 1 9123-9 #### BEVERLEY Poe ([id number]) [facility] ([facility]) [address] [place] [address] Chloride [Moles/Vol] 99 mmol/L Normal 98-107 [facility] Comment on above: Performed By: #### 1 9123-9 #### BEVERLEY Poe ([id number]) [facility] ([facility]) [address] [place] [address] CO2 [Moles/Vol] 42 mmol/L Critically high 21-32 [facility] Comment on above: Performed By: #### 1 9123-9 #### BEVERLEY Poe ([id number]) [facility] ([facility]) [address] [place] [address] Creatinine [Mass/Vol] 0.48 mg/dL Low 0.50-1.05 [facility] Comment on above: Performed By: #### 1 9123-9 #### BEVERLEY Poe ([id number]) [facility] ([facility]) [address] [place] [address] GFR/1.73 sq M.predicted MDRD (S/P/Bld) [Vol rate/Area] mL/min/{1.73_m2} Normal >60 [facility] Comment on above: Result Comment: Calc ulations of estimated GFR are performed using the 2020 CKD-EPI Study Refit equation without the race variable for the IDMS-Traceable creatinine methods. https://jasn.asnjournals.org/content/early//ASN.54382 56065 Performed By: #### 1 9123-9 #### BEVERLEY Poe ([id number]) [facility] ([facility]) [address] [place] [address] Glucose [Mass/Vol] 82 mg/dL Normal 74-99 [facility] Comment on above: Performed By: #### 1 9123-9 #### BEVERLEY oPe ([id number]) [facility] ([facility]) [address] [place] [address] Potassium [Moles/Vol] 4.3 mmol/L Normal 3.5-5.3 [facility] Comment on above: Performed By: #### 1 9123-9 #### BEVERLEY Poe ([id number]) [facility] ([facility]) [id number] [place] [address] Protein [Mass/Vol] 6.8 g/dL Normal 6.4-8.2 [facility] Comment on above: Performed By: #### 1 9123-9 #### BEVERLEY Poe ([id number]) [facility] ([facility]) [address] [place] [address] Sodium [Moles/Vol] 145 mmol/L Normal 136-145 [facility] Comment on above: Performed By: #### 1 9123-9 #### BEVERLEY CARSONER L ([id number]) [facility] ([facility]) [address] [place] [address] Urea nitrogen [Mass/Vol] 21 mg/dL Normal 6-23 [facility] Comment on above: Performed By: #### 1 9123-9 #### BEVERLEY DODD L ([id number]) [facility] ([facility]) [address] [place] [address]30 Natriuretic peptide B [Mass/ Vol]on 10-31-2023 Interpretation and review of laboratory results Normal [facility] Natriuretic peptide B (Bld) [Mass/Vol] 98 pg/mL 0 - 99 pg/mL [facility] <100 pg/mL - Heart failure [...] contact their local laboratory for further information. [facility] Natriuretic peptide B (Bld) [Mass/Vol] 98 pg/mL Normal 0-99 [facility] Comment on above: Order Comment: <100 pg/mL - Heart failure [id number] pg/mL - Intermediate probability of acute heart [...] #### 1 9123-9 #### BEVERLEY DODD L ([id number]) [facility] ([facility]) [address] [place] [address] Blood type and Indirect anti body screen panel (Bld)on 10-28-2023 ABO group Nom (Bld) O Normal [facility] Comment on above: Performed By: #### 1 9123-9 #### BEVERLEY Poe ([id number]) [facility] ([facility]) [address] [place] [address] 72135 Blood group antibody screen Ql Negative [facility] Comment on above: Performed By: #### 1 9123-9 #### BEVERLEY Poe ([id number]) [facility] ([facility]) [address] [place] [address] 59196 D Ag Ql (Bld) Positive [facility] Comment on above: Performed By: #### 1 9123-9 #### BEVERLEY Poe ([id number]) [facility] ([facility]) [address] [place] [address] 79241 CBC W Auto Differential pane l (Bld)on 10-28-2023 Basophils (Bld) [#/Vol] 0.01 x10*3/uL Normal 0.00-0.10 [facility] Comment on above: Performed By: #### 1 9123-9 #### BEVERLEY Poe ([id number]) [facility] ([facility]) [address] [place] [address] 24030 Basophils/100 WBC (Bld) 0.3 % Normal 0.0-2.0 [facility] Comment on above: Performed By: #### 1 9123-9 #### BEVERLEY DODD L ([id number]) [facility] ([facility]) [address] [place] [address] 59238 Eosinophils (Bld) [#/Vol] 0.05 x10*3/uL Normal 0.00-0.40 [facility] Comment on above: Performed By: #### 1 9123-9 #### BEVERLEY Poe ([id number]) [facility] ([facility]) [address] [place] [address] 50170 Eosinophils/100 WBC (Bld) 1.3 % Normal 0.0-6.0 [facility] Comment on above: Performed By: #### 1 9123-9 #### BEVERLEY Poe ([id number]) [facility] ([facility]) [address] [place] [address] 82497 Erythrocyte distribution width (RBC) [Ratio] 14.5 % Normal 11.5-14.5 [facility] Comment on above: Performed By: #### 1 9123-9 #### BEVERLEY Poe ([id number]) [facility] ([facility]) [address] [place] [address] Hematocrit (Bld) [Volume fraction] 32.3 % Low 36.0-46.0 [facility] Comment on above: Performed By: #### 1 9123-9 #### BEVERLEY Poe ([id number]) [facility] ([facility]) [address] [place] [address] 58601 Hemoglobin (Bld) [Mass/Vol] 9.5 g/dL Low 12.0-16.0 [facility] Comment on above: Performed By: #### 1 9123-9 #### BEVERLEY Poe ([id number]) [facility] ([facility]) [address] [place] [address] 64208 Immature granulocytes (Bld) [#/Vol] 0.02 x10*3/uL Normal 0.00-0.50 [facility] Comment on above: Performed By: #### 1 9123-9 #### BEVERLEY Poe ([id number]) [facility] ([facility]) [address] [place] [address] 41842 Immature granulocytes/100 WBC (Bld) 0.5 % Normal 0.0-0.9 [facility] Comment on above: Result Comment: Sharda ture Granulocyte Count (IG) includes promyelocytes, myelocytes and metamyelocytes but does not include bands. Percent differential counts (%) should be interpreted in the context of the absolute cell counts (cells/UL). Performed By: #### 1 9123-9 #### BEVERLEY Poe ([id number]) [facility] ([facility]) [address] [place] [address]39 Lymphocytes (Bld) [#/Vol] 0.64 x10*3/uL Low 0.80-3.00 [facility] Comment on above: Performed By: #### 1 9123-9 #### BEVERLEY Poe ([id number]) [facility] ([facility]) [address] [place] [address] 30432 Lymphocytes/100 WBC (Bld) 16.0 % Normal 13.0-44.0 [facility] Comment on above: Performed By: #### 1 9123-9 #### BEVERLEY Poe ([id number]) [facility] ([facility]) [address] [place] [address] 46017 MCH (RBC) [Entitic mass] 30.2 pg Normal 26.0-34.0 [facility] Comment on above: Performed By: #### 1 9123-9 #### BEVERLEY Poe ([id number]) [facility] ([facility]) [address] [place] [address] 86349 MCHC (RBC) [Mass/Vol] 29.4 g/dL Low 32.0-36.0 [facility] Comment on above: Performed By: #### 1 9123-9 #### BEVERLEY Poe ([id number]) [facility] ([facility]) [address] [place] [address] 01009 MCV (RBC) [Entitic vol] 103 fL High 80-100 [facility] Comment on above: Performed By: #### 1 9123-9 #### BEVERLEY Poe ([id number]) [facility] ([facility]) [address] [place] [address] 98927 Monocytes (Bld) [#/Vol] 0.23 x10*3/uL Normal 0.05-0.80 [facility] Comment on above: Performed By: #### 1 9123-9 #### BEVERLEY Poe ([id number]) [facility] ([facility]) [address] [place] [address] [place] [address] Monocytes/100 WBC (Bld) 5.8 % Normal 2.0-10.0 [facility] Comment on above: Performed By: #### 1 9123-9 #### BEVERLEY Poe ([id number]) [facility] ([facility]) [address] [place] [address] Neutrophils (Bld) [#/Vol] 3.04 x10*3/uL Normal 1.60-5.50 [facility] Comment on above: Result Comment: Perc ent differential counts (%) should be interpreted in the context of the absolute cell counts (cells/uL). Performed By: #### 1 9123-9 #### BEVERLEY Poe ([id number]) [facility] ([facility]) [id number] [place] [address] 91565 Neutrophils/100 WBC (Bld) 76.1 % Normal 40.0-80.0 [facility] Comment on above: Performed By: #### 1 9123-9 #### BEVERLEY Poe ([id number]) [facility] ([facility]) [address] [place] [address] 52845 Nucleated RBC/100 WBC (Bld) [Ratio] 0.0 /100 WBCs Normal 0.0-0.0 [facility] Comment on above: Performed By: #### 1 9123-9 #### BEVERLEY Poe ([id number]) [facility] ([facility]) [address] [place] [address] Platelets (Bld) [#/Vol] 107 x10*3/uL Low 150-450 [facility] Comment on above: Performed By: #### 1 9123-9 #### BEVERLEY Poe ([id number]) [facility] ([facility]) [address] [place] [address] 71574 RBC (Bld) [#/Vol] 3.15 x10*6/uL Low 4.00-5.20 [facility] Comment on above: Performed By: #### 1 9123-9 #### BEVERLEY Poe ([id number]) [facility] ([facility]) [address] [place] [address] WBC (Bld) [#/Vol] 4.0 x10*3/uL Low 4.4-11.3 [facility] Comment on above: Performed By: #### 1 9123-9 #### BEVERLEY Poe ([id number]) [facility] ([facility]) [address] [place] [address] Comprehensive metabolic 2000 panelon 10-28-2023 Albumin BCP dye [Mass/Vol] 3.6 g/dL Normal 3.4-5.0 [facility] Comment on above: Performed By: #### 1 9123-9 #### BEVERLEY Poe ([id number]) [facility] ([facility]) [address] [place] [address] 61516 ALP [Catalytic activity/Vol] 66 U/L Normal 33-136 [facility] Comment on above: Performed By: #### 1 9123-9 #### BEVERLEY Poe ([id number]) [facility] ([facility]) [address] [place] [address] ALT With P-5'-P [Catalytic activity/Vol] 18 U/L Normal 7-45 [facility] Comment on above: Result Comment: Ирина ents treated with Sulfasalazine may generate falsely decreased results for ALT. Performed By: #### 1 9123-9 #### BEVERLEY Poe ([id number]) [facility] ([facility]) [address] [place] [address] Anion gap [Moles/Vol] 9 mmol/L Low 10-20 [facility] Comment on above: Performed By: #### 1 9123-9 #### BEVERLEY Poe ([id number]) [facility] ([facility]) [address] [place] [address] AST With P-5'-P [Catalytic activity/Vol] 16 U/L Normal 9-39 [facility] Comment on above: Performed By: #### 1 9123-9 #### BEVERLEY Poe ([id number]) [facility] ([facility]) [address] [place] [address] Bilirubin [Mass/Vol] 0.6 mg/dL Normal 0.0-1.2 [facility] Comment on above: Performed By: #### 1 9123-9 #### BEVERLEY CARSONER L ([id number]) [facility] ([facility]) [address] [place] [address] Calcium [Mass/Vol] 9.4 mg/dL Normal 8.6-10.6 [facility] Comment on above: Performed By: #### 1 9123-9 #### BEVERLEY CARSONER L ([id number]) [facility] ([facility]) [address] [place] [address] Chloride [Moles/Vol] 100 mmol/L Normal 98-107 [facility] Comment on above: Performed By: #### 1 9123-9 #### BEVERLEY PATELTZER L ([id number]) [facility] ([facility]) [address] [place] [address] CO2 [Moles/Vol] 43 mmol/L Critically high 21-32 [facility] Comment on above: Performed By: #### 1 9123-9 #### BEVERLEY DODD L ([id number]) [facility] ([facility]) [address] [place] [address] Creatinine [Mass/Vol] 0.62 mg/dL Normal 0.50-1.05 [facility] Comment on above: Performed By: #### 1 9123-9 #### BEVERLEY PATELTZER L ([id number]) [facility] ([facility]) [address] [place] [address] GFR/1.73 sq M.predicted MDRD (S/P/Bld) [Vol rate/Area] mL/min/{1.73_m2} Normal >60 [facility] Comment on above: Result Comment: Calc ulations of estimated GFR are performed using the 2020 CKD-EPI Study Refit equation without the race variable for the IDMS-Traceable creatinine methods. https://brunasn.priscillajournals.org/content//ASN.79430 53586 Performed By: #### 1 9123-9 #### BEVERLEY Poe ([id number]) [facility] ([facility]) [address] [place] [address] 28973 Glucose [Mass/Vol] 101 mg/dL High 74-99 [facility] Comment on above: Performed By: #### 1 9123-9 #### BEVERLEY Poe ([id number]) [facility] ([facility]) [id number] [place] [address] 10889 Potassium [Moles/Vol] 4.5 mmol/L Normal 3.5-5.3 [facility] Comment on above: Performed By: #### 1 9123-9 #### BEVERLEY Poe ([id number]) [facility] ([facility]) [address] [place] [address] 38221 Protein [Mass/Vol] 7.0 g/dL Normal 6.4-8.2 [facility] Comment on above: Performed By: #### 1 9123-9 #### BEVERLEY Poe ([id number]) [facility] ([facility]) [address] [place] [address] 58321 Sodium [Moles/Vol] 147 mmol/L High 136-145 [facility] Comment on above: Performed By: #### 1 9123-9 #### BEVERLEY Poe ([id number]) [facility] ([facility]) [address] [place] [address] 64918 Urea nitrogen [Mass/Vol] 19 mg/dL Normal 6-23 [facility] Comment on above: Performed By: #### 1 9123-9 #### BEVERLEY Poe ([id number]) [facility] ([facility]) [address] [place] [address] 21147 ECG 12-LEADon 10-28-2023 ECG 12-LEAD Ventricular Rate 76 Atrial Rate 76 P-R Interval 156 QRS Duration 132 Q-T Interval 428 QTC Calculation(Bazett) 481 P [place] 57 R [place] -49 T [place] 51 QRS Count 12 Q Onset 210 [...] [place] ([id number]) on 11/11/2023 6:42:46 PM Normal [facility] Prealbuminon 10-28-2023 Prealbumin [Mass/Vol] 18.4 mg/dL Normal 18.0-40.0 [facility] Comment on above: Performed By: #### 1 9123-9 #### BEVERLEY Poe ([id number]) [facility] ([facility]) [address] [place] [address] Staphylococcus aureus.methic illin resistant isolateon 10-28-2023 MRSA isol Org specific cx Ql (Nose) Test: Staphylococcus aureus/MRSA colonization, Culture Specimen Source: Anterior Nares Specimen Type: Swab Specimen Date: 10/28/2023 9:56 AM Result Date: 10/29/2023 1:28 PM Result Status: Final result Abnormal: No Resulting Lab: [facility] [address] [place] [address] CULTURE No Staphylococcus aureus isolated [facility] Comment on above: Performed By: #### 1 9123-9 #### BEVERLEY Poe ([id number]) [facility] ([facility]) [address] [place] [address] Basophil percentageOrdered B y: Jonathanfausto Dillard on 10-11-2023 Bilirubin [Mass/Vol] 0.30 mg/dL 0.20-1.00 [facility] Comment on above: For patients on eltr ombopag therapy, use of Dimension Terra [place] TBIL is not recommended. Chloride [Moles/Vol] 101 mmol/L 98-107 [facility] Glucose [Mass/Vol] 102 mg/dL 74-106 [facility] Comment on above: Fasting Glucose resu lt from 100 to 125 mg/dL suggests IMPAIRED HOMEOSTASIS per A.D.A. criteria. Potassium [Moles/Vol] 3.7 mmol/L 3.5-5.1 [facility] Protein [Mass/Vol] 6.4 g/dL 6.4-8.2 [facility] Sodium [Moles/Vol] 144 mmol/L 136-145 [facility] WBC (Bld) [#/Vol] 3.3 10*3/uL 4.4-11.0 [facility] Blood erythrocytes count (nu mber/volume)Ordered By: Jonathan Dillard on 10-11-2023 RBC (Bld) [#/Vol] 2.77 10*6/uL 4.2-5.4 [facility] Blood hemoglobin measurement (mass/volume)Ordered By: Jonathan Dillard on 10-11-2023 Hemoglobin (Bld) [Mass/Vol] 8.2 g/dL 12.0-15.0 [facility] Blood platelet mean volumeOr dered By: Jonathan Dillard on 10-11-2023 Platelet mean volume (Bld) [Entitic vol] 8.8 fL 6.2-12.0 [facility] Determination of erythrocyte mean corpuscular volume (MCV)Ordered By: Jonathan Dillard on 10-11-2023 MCV (RBC) [Entitic vol] 105.8 fL 81-99 [facility] Hematocrit Auto (Bld) [Volum e fraction]Ordered By: Jonathan Dillard on 10-11-2023 Hematocrit (Bld) [Volume fraction] 29.3 % 37-47 [facility] Laboratory - Chemistry and C hemistry - challengeOrdered By: Jonathan Dillard on 10-11-2023 ALP [Catalytic activity/Vol] 51 U/L 45-117 [facility] ALT [Catalytic activity/Vol] 18 U/L 13-56 [facility] CO2 [Moles/Vol] 41.0 mmol/L 21.0-32.0 [facility] Globulin (S) [Mass/Vol] 4.1 g/dL 2.2-4.2 [facility] Urea nitrogen/Creatinine [Mass ratio] 36.1 mg/mg 10-20 [facility] - Hematology and Cell countsOrdered By: Jonathan Dillard on 10-11-2023 Erythrocyte distribution width (RBC) [Entitic vol] 54.5 fL 35.1-43.9 [facility] Erythrocyte distribution width (RBC) [Ratio] 14.0 % 11.6-14.6 [facility] MCH (RBC) [Entitic mass] 29.6 pg 27.0-32.0 [facility] MCHC Auto (RBC) [Mass/Vol]Or dered By: Jonathan Dillard on 10-11-2023 MCHC (RBC) [Mass/Vol] 28.0 g/dL 32-36 [facility] No Panel InformationOrdered By: Jonathan Dillard on 10-11-2023 Estimated GFR (MDRD) Amer 156 mL/min >60 [facility] Comment on above: GFR Calc Estimated GFR (MDRD) Non-Af Amer 129 mL/min >60 [facility] Comment on above: Non- GFR Calc Platelets bldOrdered By: Mervat Dillard on 10-11-2023 Platelets (Bld) [#/Vol] 116 10*3/uL 150-450 [facility] Serum or plasma albumin celina urement (mass/volume)Ordered By: Jonathan Dillard on 10-11-2023 Albumin [Mass/Vol] 2.3 g/dL 3.2-5.0 [facility] Serum or plasma albumin/glob ulin mass ratioOrdered By: Jonathan Dillard on 10-11-2023 Albumin/Globulin [Mass ratio] 0.6 {ratio} 0.9-2.4 [facility] Serum or plasma calcium celina urement (mass/volume)Ordered By: Jonathan Dillard on 10-11-2023 Calcium [Mass/Vol] 7.8 mg/dL 8.5-10.1 [facility] Serum or plasma creatinine m easurement (mass/volume)Ordered By: Jonathan Dillard on 10-11-2023 Creatinine [Mass/Vol] 0.50 mg/dL 0.55-1.02 [facility] Comment on above: The validity of the calculated GFR & GFRAA in patients over 70 years has not been determined. Clinical correlation is essential. Serum or plasma urea nitroge n measurement (mass/volume)Ordered By: Jonathan Dillard on 10-11-2023 Urea nitrogen [Mass/Vol] 18 mg/dL 7-18 [facility] Thin prep Papanicolaou smear with manual screeningOrdered By: Jonathan Dillard on 10-11-2023 Thin prep Papanicolaou smear with manual screening 14 U/L 15-37 [facility] Thin prep Papanicolaou smear with manual screening 2 5-15 [facility] Laboratory - Chemistry and C hemistry - challengeOrdered By: Jonathan Dillard on 10-04-2023 Cobalamin (Vitamin B12) [Mass/Vol] 926 pg/mL 211-911 [facility] Basophil percentageOrdered B y: Jonathan Dillard on 10-03-2023 Bilirubin [Mass/Vol] 0.40 mg/dL 0.20-1.00 [facility] Comment on above: For patients on eltr ombopag therapy, use of Dimension [place] TBIL is not recommended. Chloride [Moles/Vol] 103 mmol/L 98-107 [facility] Cholesterol [Mass/Vol] 112 mg/dL <200 [facility] Comment on above: <200 mg/dL Desirable 200-240 mg/dL Borderline >240 mg/dL High Risk Glucose [Mass/Vol] 133 mg/dL 74-106 [facility] Comment on above: Fasting Glucose resu lt greater than or equal to 126 mg/dL suggests DIABETES MELLITUS per A.D.A. criteria. Potassium [Moles/Vol] 3.8 mmol/L 3.5-5.1 [facility] Protein [Mass/Vol] 6.2 g/dL 6.4-8.2 [facility] Sodium [Moles/Vol] 144 mmol/L 136-145 [facility] Triglyceride [Mass/Vol] 156 mg/dL <199 [facility] Comment on above: The drugs N-Acetylcy steine and Metamizole may falsely depress this assay.Serum Triglycerides Reference Interval Normal <150 mg/dL Borderline high 150 - 199 mg/dL High 200 - 499 mg/dL Very High > or = 500 mg/dL WBC (Bld) [#/Vol] 3.6 10*3/uL 4.4-11.0 [facility] Blood erythrocytes count (nu mber/volume)Ordered By: Jonathan Dillard on 10-03-2023 RBC (Bld) [#/Vol] 2.77 10*6/uL 4.2-5.4 [facility] Blood hemoglobin measurement (mass/volume)Ordered By: Jonathan Dillard on 10-03-2023 Hemoglobin (Bld) [Mass/Vol] 8.2 g/dL 12.0-15.0 [facility] Blood platelet mean volumeOr dered By: Jonathan Dillard on 10-03-2023 Platelet mean volume (Bld) [Entitic vol] 9.3 fL 6.2-12.0 [facility] Determination of erythrocyte mean corpuscular volume (MCV)Ordered By: Jonathan Dillard on 10-03-2023 MCV (RBC) [Entitic vol] 104.0 fL 81-99 [facility] Hematocrit Auto (Bld) [Volum e fraction]Ordered By: Jonathan Dillard on 10-03-2023 Hematocrit (Bld) [Volume fraction] 28.8 % 37-47 [facility] Laboratory - Chemistry and C hemistry - challengeOrdered By: Jonathan Dillard on 10-03-2023 ALP [Catalytic activity/Vol] 42 U/L 45-117 [facility] ALT [Catalytic activity/Vol] 16 U/L 13-56 [facility] CO2 [Moles/Vol] 40.0 mmol/L 21.0-32.0 [facility] Globulin (S) [Mass/Vol] 3.9 g/dL 2.2-4.2 [facility] Urea nitrogen/Creatinine [Mass ratio] 35.6 mg/mg 10-20 [facility] - Hematology and Cell countsOrdered By: Jonathan Dillard on 10-03-2023 Erythrocyte distribution width (RBC) [Entitic vol] 54.0 fL 35.1-43.9 [facility] Erythrocyte distribution width (RBC) [Ratio] 14.2 % 11.6-14.6 [facility] MCH (RBC) [Entitic mass] 29.6 pg 27.0-32.0 [facility] MCHC Auto (RBC) [Mass/Vol]Or dered By: Jonathan Dillard on 10-03-2023 MCHC (RBC) [Mass/Vol] 28.5 g/dL 32-36 [facility] No Panel InformationOrdered By: Jonathan Dillard on 10-03-2023 Estimated GFR (MDRD) Amer 153 mL/min >60 [facility] Comment on above: GFR Calc Estimated GFR (MDRD) Non-Af Amer 127 mL/min >60 [facility] Comment on above: Non- GFR Calc Platelets bldOrdered By: Mervat Dillard on 10-03-2023 Platelets (Bld) [#/Vol] 104 10*3/uL 150-450 [facility] Serum or plasma albumin celina urement (mass/volume)Ordered By: Jonathan Dillard on 10-03-2023 Albumin [Mass/Vol] 2.3 g/dL 3.2-5.0 [facility] Serum or plasma albumin/glob ulin mass ratioOrdered By: Jonathan Dillard on 10-03-2023 Albumin/Globulin [Mass ratio] 0.6 {ratio} 0.9-2.4 [facility] Serum or plasma calcium celina urement (mass/volume)Ordered By: Jonathan Dillard on 10-03-2023 Calcium [Mass/Vol] 8.4 mg/dL 8.5-10.1 [facility] Serum or plasma cholesterol in HDL measurement (mass/volume)Ordered By: Jonathan Dillard on 10-03-2023 Cholesterol in HDL [Mass/Vol] 41 mg/dL >40 [facility] Comment on above: The drugs N-Acetylcy steine and Metamizole may falsely depress this assay. Reference Range HDL <40 mg/dL Low HDL Cholesterol HDL >or= 60 mg/dL High HDL Cholesterol Serum or plasma cholesterol in VLDL measurement (mass/volume)Ordered By: Jonathan Dillard on 10-03-2023 Cholesterol in VLDL [Mass/Vol] 31 mg/dL 5-40 [facility] Serum or plasma creatinine m easurement (mass/volume)Ordered By: Jonathan Dillard on 10-03-2023 Creatinine [Mass/Vol] 0.51 mg/dL 0.55-1.02 [facility] Comment on above: The validity of the calculated GFR & GFRAA in patients over 70 years has not been determined. Clinical correlation is essential. Serum or plasma low density lipoprotein (LDL) cholesterol measurement (mass/volume)Ordered By: Jonathan Dillard on 10-03-2023 Cholesterol in LDL [Mass/Vol] 40 mg/dL 0-130 [facility] Serum or plasma urea nitroge n measurement (mass/volume)Ordered By: Jonathan Dillard on 10-03-2023 Urea nitrogen [Mass/Vol] 18 mg/dL 7-18 [facility] Thin prep Papanicolaou smear with manual screeningOrdered By: Jonathan Dillard on 10-03-2023 Thin prep Papanicolaou smear with manual screening 15 U/L 15-37 [facility] Thin prep Papanicolaou smear with manual screening 1 5-15 [facility] Whole blood hemoglobin A1c/t otal hemoglobin ratio (mass fraction)Ordered By: Jonathan Dillard on 10-03-2023 HbA1c (Bld) [Mass fraction] % 3.8-5.6 [facility] Comment on above: Normal < 5.7 % Predi abetic 5.7 - 6.4 % Diabetic >or= 6.5 % Please note range changes. CBC panel Auto (Bld)on 09-28 Erythrocyte distribution width (RBC) [Ratio] 14.0 % 11.5 - 14.5 % [facility] Hematocrit (Bld) [Volume fraction] 28.8 % Low 36.0 - 46.0 % [facility] Hemoglobin (Bld) [Mass/Vol] 8.4 g/dL Low 12.0 - 16.0 g/dL [facility] Interpretation and review of laboratory results Abnormal [facility] MCH (RBC) [Entitic mass] 30.1 pg 26.0 - 34.0 pg [facility] MCHC (RBC) [Mass/Vol] 29.2 g/dL Low 32.0 - 36.0 g/dL [facility] MCV (RBC) [Entitic vol] 103 fL High 80 - 100 fL [facility] Nucleated RBC/100 WBC (Bld) [Ratio] 0.0 % [facility] Platelets (Bld) [#/Vol] 113 10*3/uL Low [facility] RBC (Bld) [#/Vol] 2.79 10*6/uL [facility] WBC (Bld) [#/Vol] 3.5 10*3/uL [facility] Erythrocyte distribution width (RBC) [Ratio] 14.0 % Normal 11.5-14.5 [facility] Comment on above: Performed By: #### 1 9123-9 #### BEVERLEY Poe ([id number]) [facility] ([facility]) [address] [place] [address] 19892 Hematocrit (Bld) [Volume fraction] 28.8 % Low 36.0-46.0 [facility] Comment on above: Performed By: #### 1 9123-9 #### BEVERLEY Poe ([id number]) [facility] ([facility]) [address] [place] [address] 92155 Hemoglobin (Bld) [Mass/Vol] 8.4 g/dL Low 12.0-16.0 [facility] Comment on above: Performed By: #### 1 9123-9 #### BEVERLEY Poe ([id number]) [facility] ([facility]) [address] [place] [address] 27554 MCH (RBC) [Entitic mass] 30.1 pg Normal 26.0-34.0 [facility] Comment on above: Performed By: #### 1 9123-9 #### BEVERLEY Poe ([id number]) [facility] ([facility]) [address] [place] [address] 34984 MCHC (RBC) [Mass/Vol] 29.2 g/dL Low 32.0-36.0 [facility] Comment on above: Performed By: #### 1 9123-9 #### BEVERLEY Poe ([id number]) [facility] ([facility]) [address] [place] [address] 06447 MCV (RBC) [Entitic vol] 103 fL High 80-100 [facility] Comment on above: Performed By: #### 1 9123-9 #### BEVERLEY Poe ([id number]) [facility] ([facility]) [address] [place] [address] Nucleated RBC/100 WBC (Bld) [Ratio] 0.0 /100 WBCs Normal 0.0-0.0 [facility] Comment on above: Performed By: #### 1 9123-9 #### BEVERLEY oPe ([id number]) [facility] ([facility]) [address] [place] [address] Platelets (Bld) [#/Vol] 113 x10*3/uL Low 150-450 [facility] Comment on above: Performed By: #### 1 9123-9 #### BEVERLEY Poe ([id number]) [facility] ([facility]) [id number] [place] [address] 32960 RBC (Bld) [#/Vol] 2.79 x10*6/uL Low 4.00-5.20 [facility] Comment on above: Performed By: #### 1 9123-9 #### BEVERLEY Poe ([id number]) [facility] ([facility]) [address] [place] [address] 60462 WBC (Bld) [#/Vol] 3.5 x10*3/uL Low 4.4-11.3 [facility] Comment on above: Performed By: #### 1 9123-9 #### BEVERLEY Poe ([id number]) [facility] ([facility]) [id number] [place] [address] 55477 [facility] Heart and Coronary arter ies WO and W contrast Jack 09-28-2023 [facility] Work Phone: CTA Heart and Coronary arter ies WO and W contrast IVOrdered By: Yair Pham on 09-28-2023 [facility] Work Phone: Magnesiumon 09-28-2023 Magnesium [Mass/Vol] 2.13 mg/dL Normal 1.60-2.40 [facility] Comment on above: Performed By: #### 1 9123-9 #### BEVERLEY Poe ([id number]) [facility] ([facility]) [address] [place] [address] Renal function 2000 panelon 09-28-2023 Albumin BCP dye [Mass/Vol] 2.9 g/dL Low 3.4-5.0 [facility] Comment on above: Performed By: #### 1 9123-9 #### BEVERLEY Poe ([id number]) [facility] ([facility]) [address] [place] [address] Anion gap [Moles/Vol] 11 mmol/L Normal 10-20 [facility] Comment on above: Performed By: #### 1 9123-9 #### BEVERLEY Poe ([id number]) [facility] ([facility]) [address] [place] [address] 70610 Calcium [Mass/Vol] 8.9 mg/dL Normal 8.6-10.6 [facility] Comment on above: Performed By: #### 1 9123-9 #### BEVERLEY Poe ([id number]) [facility] ([facility]) [address] [place] [address] 69971 Chloride [Moles/Vol] 100 mmol/L Normal 98-107 [facility] Comment on above: Performed By: #### 1 9123-9 #### BEVERLEY Poe ([id number]) [facility] ([facility]) [id number] [place] [address] 50266 CO2 [Moles/Vol] 40 mmol/L Critically high 21-32 [facility] Comment on above: Performed By: #### 1 9123-9 #### BEVERLEY Poe ([id number]) [facility] ([facility]) [address] [place] [address] Creatinine [Mass/Vol] 0.44 mg/dL Low 0.50-1.05 [facility] Comment on above: Performed By: #### 1 9123-9 #### BEVERLEY Poe ([id number]) [facility] ([facility]) [id number] [place] [address] 76555 GFR/1.73 sq M.predicted MDRD (S/P/Bld) [Vol rate/Area] mL/min/{1.73_m2} Normal >60 [facility] Comment on above: Result Comment: Calc ulations of estimated GFR are performed using the 2020 CKD-EPI Study Refit equation without the race variable for the IDMS-Traceable creatinine methods. https://jasn.asnjournals.org/content//ASN.43502 58050 Performed By: #### 1 9123-9 #### EBVERLEY Poe ([id number]) [facility] ([facility]) [address] [place] [address] Glucose [Mass/Vol] 143 mg/dL High 74-99 [facility] Comment on above: Performed By: #### 1 9123-9 #### BEVERLEY Poe ([id number]) [facility] ([facility]) [address] [place] [address] Phosphate [Mass/Vol] 2.8 mg/dL Normal 2.5-4.9 [facility] Comment on above: Result Comment: The performance characteristics of phosphorus testing in heparinized plasma have been validated by the individual laboratory site where testing is performed. Testing on heparinized plasma is not approved by the FDA; however, such approval is not necessary. Performed By: #### 1 9123-9 #### BEVERLEY Poe ([id number]) [facility] ([facility]) [address] [place] [address] Potassium [Moles/Vol] 3.8 mmol/L Normal 3.5-5.3 [facility] Comment on above: Performed By: #### 1 9123-9 #### BEVERLEY oPe ([id number]) [facility] ([facility]) [address] [place] [address] Sodium [Moles/Vol] 147 mmol/L High 136-145 [facility] Comment on above: Performed By: #### 1 9123-9 #### BEVERLEY Poe ([id number]) [facility] ([facility]) [address] [place] [address] Urea nitrogen [Mass/Vol] 11 mg/dL Normal 6-23 [facility] Comment on above: Performed By: #### 1 9123-9 #### BEVERLEY Poe ([id number]) [facility] ([facility]) [address] [place] [address] 13968 SARS coronavirus 2 RNAon SARS-CoV-2 (COVID-19) RNA ISA+probe Ql (Resp) Not detected Normal Not Detected [facility] Comment on above: Order Comment: [...] and has been validated for use at [facility]. Negative results do not preclude COVID-19 infections and should not be used as the sole basis for diagnosis, treatment, or other management decisions. Performed By: #### 1 9123-9 #### BEVERLEY Poe ([id number]) [facility] ([facility]) [address] [place] [address] 65569 SARS-CoV-2 (COVID-19) RNA NA A+probe Ql (Resp)on 09-28-2023 Interpretation and review of laboratory results Normal [facility] SARS-CoV-2 RT PCRon 09-28-20 SARS-CoV-2 (COVID-19) RNA ISA+probe Ql (Resp) Not detected Not Detected [facility] CBC panel Auto (Bld)on 09-27 Erythrocyte distribution width (RBC) [Ratio] 14.3 % 11.5 - 14.5 % [facility] Hematocrit (Bld) [Volume fraction] 28.0 % Low 36.0 - 46.0 % [facility] Hemoglobin (Bld) [Mass/Vol] 8.0 g/dL Low 12.0 - 16.0 g/dL [facility] Interpretation and review of laboratory results Abnormal [facility] MCH (RBC) [Entitic mass] 29.7 pg 26.0 - 34.0 pg [facility] MCHC (RBC) [Mass/Vol] 28.6 g/dL Low 32.0 - 36.0 g/dL [facility] MCV (RBC) [Entitic vol] 104 fL High 80 - 100 fL [facility] Nucleated RBC/100 WBC (Bld) [Ratio] 0.0 % [facility] Platelets (Bld) [#/Vol] 115 10*3/uL Low [facility] RBC (Bld) [#/Vol] 2.69 10*6/uL [facility] WBC (Bld) [#/Vol] 3.2 10*3/uL [facility] Erythrocyte distribution width (RBC) [Ratio] 14.3 % Normal 11.5-14.5 [facility] Comment on above: Performed By: #### 2 341-6 #### BEVERLEY Poe ([id number]) [facility] ([facility]) [address] [place] [address] 79788 Hematocrit (Bld) [Volume fraction] 28.0 % Low 36.0-46.0 [facility] Comment on above: Performed By: #### 2 341-6 #### BEVERLEY Poe ([id number]) [facility] ([facility]) [address] [place] [address] 91379 Hemoglobin (Bld) [Mass/Vol] 8.0 g/dL Low 12.0-16.0 [facility] Comment on above: Performed By: #### 2 341-6 #### BEVERLEY Poe ([id number]) [facility] ([facility]) [address] [place] [address] 43029 MCH (RBC) [Entitic mass] 29.7 pg Normal 26.0-34.0 [facility] Comment on above: Performed By: #### 2 341-6 #### BEVERLEY Poe ([id number]) [facility] ([facility]) [address] [place] [address] MCHC (RBC) [Mass/Vol] 28.6 g/dL Low 32.0-36.0 [facility] Comment on above: Performed By: #### 2 341-6 #### BEVERLEY Poe ([id number]) [facility] ([facility]) [address] [place] [address] MCV (RBC) [Entitic vol] 104 fL High 80-100 [facility] Comment on above: Performed By: #### 2 341-6 #### BEVERLEY Poe ([id number]) [facility] ([facility]) [address] [place] [address] 89495 Nucleated RBC/100 WBC (Bld) [Ratio] 0.0 /100 WBCs Normal 0.0-0.0 [facility] Comment on above: Performed By: #### 2 341-6 #### BEVERLEY Poe ([id number]) [facility] ([facility]) [address] [place] [address] Platelets (Bld) [#/Vol] 115 x10*3/uL Low 150-450 [facility] Comment on above: Performed By: #### 2 341-6 #### BEVERLEY Poe ([id number]) [facility] ([facility]) [address] [place] [address] RBC (Bld) [#/Vol] 2.69 x10*6/uL Low 4.00-5.20 [facility] Comment on above: Performed By: #### 2 341-6 #### BEVERLEY Poe ([id number]) [facility] ([facility]) [address] [place] [address] 58368 WBC (Bld) [#/Vol] 3.2 x10*3/uL Low 4.4-11.3 [facility] Comment on above: Performed By: #### 2 341-6 #### BEVERLEY Poe ([id number]) [facility] ([facility]) [address] [place] [address] Cobalaminson 09-27-2023 Cobalamin (Vitamin B12) [Mass/Vol] 411 pg/mL Normal 211-911 [facility] Comment on above: Performed By: #### 1 9123-9 #### BEVERLEY Poe ([id number]) [facility] ([facility]) [address] [place] [address] 83767 Electrocardiogram, 12-lead P RN ACS symptomsOrdered By: Simon Piedra on 09-27-2023 Atrial Rate 104 BPM [facility] Work Phone: [phone] [place] 67 degrees [facility] Work Phone: [phone] P Offset 193 ms [facility] Work Phone: [phone] P Onset 137 ms [facility] Work Phone: [phone] OR Interval 150 ms [facility] Work Phone: [phone] Q Onset 212 ms [facility] Work Phone: [phone] QRS Count 17 beats [facility] Work Phone: [phone] QRS Duration 136 ms [facility] Work Phone: [phone] QT Interval 352 ms [facility] Work Phone: [phone] QTC Calculation(Bazett) 462 [facility] Work Phone: [phone] QTC Fredericia 422 ms [facility] Work Phone: [phone] R [place] -54 degrees [facility] Work Phone: [phone] T [place] 70 degrees [facility] Work Phone: [phone] T Offset 388 ms [facility] Work Phone: [phone] Ventricular Rate 104 BPM [facility] Work Phone: [phone] [facility] Work Phone: [phone] Electrocardiogram, 12-lead P RN ACS symptomson 09-27-2023 [facility] Work Phone: Folateon 09-27-2023 Folate [Mass/Vol] 16.2 ng/mL Normal >5.0 [facility] Comment on above: Order Comment: Low < 3.4Borderline 3.4-5.0Normal >5.0Patients receiving more than 5 mg/day of biotin may have interference in test results. A sample should be taken no sooner than eight hours after previous dose. Contact the testing laboratory for additional information. Performed By: #### 1 9123-9 #### BEVERLEY Poe ([id number]) [facility] ([facility]) [address] [place] [address] 07623 Magnesiumon 09-27-2023 Magnesium [Mass/Vol] 2.13 mg/dL 1.60 - 2.40 mg/dL [facility] Magnesium [Mass/Vol] 2.13 mg/dL Normal 1.60-2.40 [facility] Comment on above: Performed By: #### 2 341-6 #### BEVERLEY Poe ([id number]) [facility] ([facility]) [address] [place] [address] 83326 Magnesium [Mass/Vol]on 09-27 Interpretation and review of laboratory results Normal [facility] No Panel Informationon 09-27 [facility] Renal function 2000 panelon 09-27-2023 Albumin BCP dye [Mass/Vol] 2.8 g/dL Low 3.4 - 5.0 g/dL [facility] Anion gap [Moles/Vol] 7 mmol/L Low 10 - 2 0 mmol/L [facility] Calcium [Mass/Vol] 8.7 mg/dL 8.6 - 10. 6 mg/dL [facility] Chloride [Moles/Vol] 102 mmol/L 98 - 10 7 mmol/L [facility] CO2 [Moles/Vol] 42 mmol/L Critically high 21 - 32 mmol/L [facility] Creatinine [Mass/Vol] 0.41 mg/dL Low 0.50 - 1.05 mg/dL [facility] GFR/1.73 sq M.predicted MDRD (S/P/Bld) [Vol rate/Area] - PINF [facility] Glucose [Mass/Vol] 142 mg/dL High 74 - 99 mg/dL [facility] Interpretation and review of laboratory results Abnormal [facility] Phosphate [Mass/Vol] 3.2 mg/dL 2.5 - 4 .9 mg/dL [facility] Potassium [Moles/Vol] 3.9 mmol/L 3.5 - 5.3 mmol/L [facility] Sodium [Moles/Vol] 147 mmol/L High 136 - 145 mmol/L [facility] Urea nitrogen [Mass/Vol] 12 mg/dL 6 - 23 mg/dL [facility] Albumin BCP dye [Mass/Vol] 2.8 g/dL Low 3.4-5.0 [facility] Comment on above: Performed By: #### 2 341-6 #### BEVERLEY Poe ([id number]) [facility] ([facility]) [address] [place] [address] 31088 Anion gap [Moles/Vol] 7 mmol/L Low 10-20 [facility] Comment on above: Performed By: #### 2 341-6 #### BEVERLEY Poe ([id number]) [facility] ([facility]) [address] [place] [address] 43639 Calcium [Mass/Vol] 8.7 mg/dL Normal 8.6-10.6 [facility] Comment on above: Performed By: #### 2 341-6 #### BEVERLEY Poe ([id number]) [facility] ([facility]) [address] [place] [address] 94236 Chloride [Moles/Vol] 102 mmol/L Normal 98-107 [facility] Comment on above: Performed By: #### 2 341-6 #### BEVERLEY Poe ([id number]) [facility] ([facility]) [address] [place] [address] 91151 CO2 [Moles/Vol] 42 mmol/L Critically high 21-32 [facility] Comment on above: Performed By: #### 2 341-6 #### BEVERLEY Poe ([id number]) [facility] ([facility]) [address] [place] [address] Creatinine [Mass/Vol] 0.41 mg/dL Low 0.50-1.05 [facility] Comment on above: Performed By: #### 2 341-6 #### BEVERLEY Poe ([id number]) [facility] ([facility]) [address] [place] [address] GFR/1.73 sq M.predicted MDRD (S/P/Bld) [Vol rate/Area] mL/min/{1.73_m2} Normal >60 [facility] Comment on above: Result Comment: Calc ulations of estimated GFR are performed using the 2020 CKD-EPI Study Refit equation without the race variable for the IDMS-Traceable creatinine methods. https://jasn.asnjournals.org/content/early/ASN.03131 84199 Performed By: #### 2 341-6 #### BEVERLEY Poe ([id number]) [facility] ([facility]) [address] [place] [address] Glucose [Mass/Vol] 142 mg/dL High 74-99 [facility] Comment on above: Performed By: #### 2 341-6 #### BEVERLEY Poe ([id number]) [facility] ([facility]) [address] [place] [address] Phosphate [Mass/Vol] 3.2 mg/dL Normal 2.5-4.9 [facility] Comment on above: Result Comment: The performance characteristics of phosphorus testing in heparinized plasma have been validated by the individual laboratory site where testing is performed. Testing on heparinized plasma is not approved by the FDA; however, such approval is not necessary. Performed By: #### 2 341-6 #### BEVERLEY Poe ([id number]) [facility] ([facility]) [address] [place] [address] Potassium [Moles/Vol] 3.9 mmol/L Normal 3.5-5.3 [facility] Comment on above: Performed By: #### 2 341-6 #### BEVERLEY Poe ([id number]) [facility] ([facility]) [address] [place] [address] Sodium [Moles/Vol] 147 mmol/L High 136-145 [facility] Comment on above: Performed By: #### 2 341-6 #### BEVERLEY Poe ([id number]) [facility] ([facility]) [address] [place] [address] Urea nitrogen [Mass/Vol] 12 mg/dL Normal 6- [facility] Comment on above: Performed By: #### 2 341-6 #### BEVERLEY Poe ([id number]) [facility] ([facility]) [address] [place] [address] 45909 SARS coronavirus 2 RNAon SARS-CoV-2 (COVID-19) RNA ISA+probe Ql (Resp) Not detected Normal Not Detected [facility] Comment on above: Order Comment: [...] and has been validated for use at [facility]. Negative results do not preclude COVID-19 infections and should not be used as the sole basis for diagnosis, treatment, or other management decisions. Performed By: #### 2 341-6 #### BEVERLEY Poe ([id number]) [facility] ([facility]) [address] [place] [address] 77643 SARS-CoV-2 (COVID-19) RNA NA A+probe Ql (Resp)on 09-27-2023 Interpretation and review of laboratory results Normal [facility] SARS-CoV-2 RT PCRon 09-27-20 SARS-CoV-2 (COVID-19) RNA ISA+probe Ql (Resp) Not detected Not Detected [facility] CBC panel Auto (Bld)on 09-26 Erythrocyte distribution width (RBC) [Ratio] 14.3 % 11.5 - 14.5 % [facility] Hematocrit (Bld) [Volume fraction] 26.6 % Low 36.0 - 46.0 % [facility] Hemoglobin (Bld) [Mass/Vol] 7.6 g/dL Low 12.0 - 16.0 g/dL [facility] Interpretation and review of laboratory results Abnormal [facility] MCH (RBC) [Entitic mass] 29.9 pg 26.0 - 34.0 pg [facility] MCHC (RBC) [Mass/Vol] 28.6 g/dL Low 32.0 - 36.0 g/dL [facility] MCV (RBC) [Entitic vol] 105 fL High 80 - 100 fL [facility] Nucleated RBC/100 WBC (Bld) [Ratio] 0.0 % [facility] Platelets (Bld) [#/Vol] 107 10*3/uL [facility] RBC (Bld) [#/Vol] 2.54 10*6/uL [facility] WBC (Bld) [#/Vol] 4.1 10*3/uL [facility] Erythrocyte distribution width (RBC) [Ratio] 14.3 % Normal 11.5-14.5 [facility] Comment on above: Performed By: #### 2 341-6 #### BEVERLEY Poe ([id number]) [facility] ([facility]) [id number] [place] [address] 70136 Hematocrit (Bld) [Volume fraction] 26.6 % Low 36.0-46.0 [facility] Comment on above: Performed By: #### 2 341-6 #### BEVERLEY Poe ([id number]) [facility] ([facility]) [address] [place] [address] 47003 Hemoglobin (Bld) [Mass/Vol] 7.6 g/dL Low 12.0-16.0 [facility] Comment on above: Performed By: #### 2 341-6 #### BEVERLEY Poe ([id number]) [facility] ([facility]) [address] [place] [address] 12136 MCH (RBC) [Entitic mass] 29.9 pg Normal 26.0-34.0 [facility] Comment on above: Performed By: #### 2 341-6 #### BEVERLEY Poe ([id number]) [facility] ([facility]) [address] [place] [address] 82481 MCHC (RBC) [Mass/Vol] 28.6 g/dL Low 32.0-36.0 [facility] Comment on above: Performed By: #### 2 341-6 #### BEVERLEY Poe ([id number]) [facility] ([facility]) [address] [place] [address] 07204 MCV (RBC) [Entitic vol] 105 fL High 80-100 [facility] Comment on above: Performed By: #### 2 341-6 #### BEVERLEY Poe ([id number]) [facility] ([facility]) [address] [place] [address] 81370 Nucleated RBC/100 WBC (Bld) [Ratio] 0.0 /100 WBCs Normal 0.0-0.0 [facility] Comment on above: Performed By: #### 2 341-6 #### BEVERLEY Poe ([id number]) [facility] ([facility]) [address] [place] [address] 71079 Platelets (Bld) [#/Vol] 107 x10*3/uL Low 150-450 [facility] Comment on above: Performed By: #### 2 341-6 #### BEVERLEY Poe ([id number]) [facility] ([facility]) [address] [place] [address] 19557 RBC (Bld) [#/Vol] 2.54 x10*6/uL Low 4.00-5.20 [facility] Comment on above: Performed By: #### 2 341-6 #### BEVERLEY Poe ([id number]) [facility] ([facility]) [address] [place] [address] WBC (Bld) [#/Vol] 4.1 x10*3/uL Low 4.4-11.3 [facility] Comment on above: Performed By: #### 2 341-6 #### BEVERLEY Poe ([id number]) [facility] ([facility]) [address] [place], [place] [id number] CTA Heart and Coronary arter ies WO and W contrast Jack 09-26-2023 Radiology Study observation (narrative) [facility] Work Phone: [phone] ECG 12 LeadOrdered By: Monse Piedra on 09-26-2023 Atrial Rate 96 BPM [facility] Work Phone: [phone] P [place] 61 degrees [facility] Work Phone: [phone] P Offset 197 ms [facility] Work Phone: [phone] P Onset 133 ms [facility] Work Phone: [phone] OR Interval 156 ms [facility] Work Phone: [phone] Q Onset 211 ms [facility] Work Phone: [phone] QRS Count 16 beats [facility] Work Phone: [phone] QRS Duration 136 ms [facility] Work Phone: [phone] QT Interval 380 ms [facility] Work Phone: [phone] QTC Calculation(Bazett) 480 [facility] Work Phone: [phone] QTC Fredericia 444 [facility] Work Phone: [phone] R [place] -49 degrees [facility] Work Phone: [phone] T [place] 77 degrees [facility] Work Phone: [phone] T Offset 401 ms [facility] Work Phone: [phone] Ventricular Rate 96 BPM [facility] Work Phone: [facility] Work Phone: ECG 12 Leadon 09-26-2023 MUSE [facility] Work Phone: Magnesiumon 09-26-2023 Magnesium [Mass/Vol] 2.17 mg/dL 1.60 - 2.40 mg/dL [facility] Magnesium [Mass/Vol] 2.17 mg/dL Normal 1.60-2.40 [facility] Comment on above: Performed By: #### 2 341-6 #### BEVERLEY Poe ([id number]) [facility] ([facility]) [address] [place] [address] Magnesium [Mass/Vol]on 09-26 Interpretation and review of laboratory results Normal [facility] No Panel Informationon 09-26 [facility] Renal function 2000 panelon 09-26-2023 Albumin BCP dye [Mass/Vol] 2.8 g/dL Low 3.4 - 5.0 g/dL [facility] Anion gap [Moles/Vol] mmol/L Low 10 - 2 0 mmol/L [facility] Calcium [Mass/Vol] 8.6 mg/dL 8.6 - 10. 6 mg/dL [facility] Chloride [Moles/Vol] 101 mmol/L 98 - 10 7 mmol/L [facility] CO2 [Moles/Vol] 45 mmol/L Critically high 21 - 32 mmol/L [facility] Creatinine [Mass/Vol] 0.45 mg/dL Low 0.50 - 1.05 mg/dL [facility] GFR/1.73 sq M.predicted MDRD (S/P/Bld) [Vol rate/Area] - PINF [facility] Glucose [Mass/Vol] 111 mg/dL High 74 - 99 mg/dL [facility] Interpretation and review of laboratory results Abnormal [facility] Phosphate [Mass/Vol] 3.2 mg/dL 2.5 - 4 .9 mg/dL [facility] Potassium [Moles/Vol] 3.8 mmol/L 3.5 - 5.3 mmol/L [facility] Sodium [Moles/Vol] 147 mmol/L High 136 - 145 mmol/L [facility] Urea nitrogen [Mass/Vol] 16 mg/dL 6 - 23 mg/dL [facility] Albumin BCP dye [Mass/Vol] 2.8 g/dL Low 3.4-5.0 [facility] Comment on above: Performed By: #### 2 341-6 #### BEVERLEY Poe ([id number]) [facility] ([facility]) [address] [place] [address] Anion gap [Moles/Vol] mmol/L Low 10-20 [facility] Comment on above: Performed By: #### 2 341-6 #### BEVERLEY Poe ([id number]) [facility] ([facility]) [address] [place] [address] 11928 Calcium [Mass/Vol] 8.6 mg/dL Normal 8.6-10.6 [facility] Comment on above: Performed By: #### 2 341-6 #### BEVERLEY Poe ([id number]) [facility] ([facility]) [address] [place] [address] 93166 Chloride [Moles/Vol] 101 mmol/L Normal 98-107 [facility] Comment on above: Performed By: #### 2 341-6 #### BEVERLEY DODD L ([id number]) [facility] ([facility]) [address] [place] [address] 81889 CO2 [Moles/Vol] 45 mmol/L Critically high 21-32 [facility] Comment on above: Performed By: #### 2 341-6 #### BEVERLEY DODD L ([id number]) [facility] ([facility]) [address] [place] [address] 62563 Creatinine [Mass/Vol] 0.45 mg/dL Low 0.50-1.05 [facility] Comment on above: Performed By: #### 2 341-6 #### BEVERLEY Poe ([id number]) [facility] ([facility]) [address] [place] [address] GFR/1.73 sq M.predicted MDRD (S/P/Bld) [Vol rate/Area] mL/min/{1.73_m2} Normal >60 [facility] Comment on above: Result Comment: Calc ulations of estimated GFR are performed using the 2020 CKD-EPI Study Refit equation without the race variable for the IDMS-Traceable creatinine methods. https://jasn.asnjournals.org/content//ASN.85353 83679 Performed By: #### 2 341-6 #### BEVERLEY Poe ([id number]) [facility] ([facility]) [address] [place] [address] Glucose [Mass/Vol] 111 mg/dL High 74-99 [facility] Comment on above: Performed By: #### 2 341-6 #### BEVERLEY Poe ([id number]) [facility] ([facility]) [address] [place] [address] Phosphate [Mass/Vol] 3.2 mg/dL Normal 2.5-4.9 [facility] Comment on above: Result Comment: The performance characteristics of phosphorus testing in heparinized plasma have been validated by the individual laboratory site where testing is performed. Testing on heparinized plasma is not approved by the FDA; however, such approval is not necessary. Performed By: #### 2 341-6 #### BEVERLEY Poe ([id number]) [facility] ([facility]) [address] [place] [address] Potassium [Moles/Vol] 3.8 mmol/L Normal 3.5-5.3 [facility] Comment on above: Performed By: #### 2 341-6 #### BEVERLEY Poe ([id number]) [facility] ([facility]) [address] [place] [address] Sodium [Moles/Vol] 147 mmol/L High 136-145 [facility] Comment on above: Performed By: #### 2 341-6 #### BEVERLEY Poe ([id number]) [facility] ([facility]) [address] [place] [address] 62399 Urea nitrogen [Mass/Vol] 16 mg/dL Normal 6-23 [facility] Comment on above: Performed By: #### 2 341-6 #### BEVERLEY Poe ([id number]) [facility] ([facility]) [address] [place] [address] MR Pelvis WO and W contrast Jack 09-25-2023 [facility] MMODAL U[facility] MMODAL [facility] Work Phone: MR Pelvis WO and W contrast IVOrdered By: Clint Woods on 09-25-2023 [facility] Work Phone: CBC panel Auto (Bld)on 09-24 Erythrocyte distribution width (RBC) [Ratio] 14.5 % 11.5 - 14.5 % [facility] [facility] Hematocrit (Bld) [Volume fraction] 26.5 % Low 36.0 - 46.0 % [facility] Hemoglobin (Bld) [Mass/Vol] 7.8 g/dL Low 12.0 - 16.0 g/dL [facility] Interpretation and review of laboratory results Abnormal [facility] MCH (RBC) [Entitic mass] 29.1 pg 26.0 - 34.0 pg [facility] MCHC (RBC) [Mass/Vol] 29.4 g/dL Low 32.0 - 36.0 g/dL [facility] MCV (RBC) [Entitic vol] 99 fL 80 - 100 fL [facility] Nucleated RBC/100 WBC (Bld) [Ratio] 0.0 % [facility] Platelets (Bld) [#/Vol] 96 10*3/uL Low [facility] RBC (Bld) [#/Vol] 2.68 10*6/uL [facility] WBC (Bld) [#/Vol] 4.7 10*3/uL [facility] Erythrocyte distribution width (RBC) [Ratio] 14.5 % Normal 11.5-14.5 [facility] Comment on above: Performed By: #### 2 341-6 #### BEVERLYE Poe ([id number]) [facility] ([facility]) [id number] [place] [address] 31916 Hematocrit (Bld) [Volume fraction] 26.5 % Low 36.0-46.0 [facility] Comment on above: Performed By: #### 2 341-6 #### BEVERLEY Poe ([id number]) [facility] ([facility]) [address] [place] [address] 17328 Hemoglobin (Bld) [Mass/Vol] 7.8 g/dL Low 12.0-16.0 [facility] Comment on above: Performed By: #### 2 341-6 #### BEVERLEY Poe ([id number]) [facility] ([facility]) [address] [place] [address] 43749 MCH (RBC) [Entitic mass] 29.1 pg Normal 26.0-34.0 [facility] Comment on above: Performed By: #### 2 341-6 #### BEVERLEY Poe ([id number]) [facility] ([facility]) [address] [place] [address] 04743 MCHC (RBC) [Mass/Vol] 29.4 g/dL Low 32.0-36.0 [facility] Comment on above: Performed By: #### 2 341-6 #### BEVERLEY Poe ([id number]) [facility] ([facility]) [address] [place] [address] 61711 MCV (RBC) [Entitic vol] 99 fL Normal 80-100 [facility] Comment on above: Performed By: #### 2 341-6 #### BEVERLEY Poe ([id number]) [facility] ([facility]) [address] [place] [address] 48902 Nucleated RBC/100 WBC (Bld) [Ratio] 0.0 /100 WBCs Normal 0.0-0.0 [facility] Comment on above: Performed By: #### 2 341-6 #### BEVERLEY Poe ([id number]) [facility] ([facility]) [address] [place] [address] 20791 Platelets (Bld) [#/Vol] 96 x10*3/uL Low 150-450 [facility] Comment on above: Performed By: #### 2 341-6 #### BEVERLEY Poe ([id number]) [facility] ([facility]) [address] [place] [address] 91271 RBC (Bld) [#/Vol] 2.68 x10*6/uL Low 4.00-5.20 [facility] Comment on above: Performed By: #### 2 341-6 #### BEVERLEY Poe ([id number]) [facility] ([facility]) [address] [place] [address] 57199 WBC (Bld) [#/Vol] 4.7 x10*3/uL Normal 4.4-11.3 [facility] Comment on above: Performed By: #### 2 341-6 #### BEVERLEY Poe ([id number]) [facility] ([facility]) [address] [place] [address] 13177 Glucose Test strip manual (B ld) [Mass/Vol]on 09-24-2023 Glucose [Mass/Vol] 135 mg/dL High 74 - 99 mg/dL [facility] Interpretation and review of laboratory results Abnormal [facility] Magnesiumon 09-24-2023 Magnesium [Mass/Vol] 2.01 mg/dL 1.60 - 2.40 mg/dL [facility] Magnesium [Mass/Vol] 2.01 mg/dL Normal 1.60-2.40 [facility] Comment on above: Performed By: #### 2 341-6 #### BEVERLEY Poe ([id number]) [facility] ([facility]) [address] [place] [address] 30884 Magnesium [Mass/Vol]on 09-24 Interpretation and review of laboratory results Normal [facility] No Panel Informationon 09-24 [facility] Renal function 2000 panelon 09-24-2023 Albumin BCP dye [Mass/Vol] 2.8 g/dL Low 3.4 - 5.0 g/dL [facility] Anion gap [Moles/Vol] 10 mmol/L 10 - 2 0 mmol/L [facility] Calcium [Mass/Vol] 8.4 mg/dL Low 8.6 - 10. 6 mg/dL [facility] Chloride [Moles/Vol] 98 mmol/L 98 - 10 7 mmol/L [facility] CO2 [Moles/Vol] 42 mmol/L Critically high 21 - 32 mmol/L [facility] Creatinine [Mass/Vol] 0.42 mg/dL Low 0.50 - 1.05 mg/dL [facility] GFR/1.73 sq M.predicted MDRD (S/P/Bld) [Vol rate/Area] - PINF [facility] Glucose [Mass/Vol] 140 mg/dL High 74 - 99 mg/dL [facility] Interpretation and review of laboratory results Abnormal [facility] Phosphate [Mass/Vol] 3.3 mg/dL 2.5 - 4 .9 mg/dL [facility] Potassium [Moles/Vol] 4.0 mmol/L 3.5 - 5.3 mmol/L [facility] Sodium [Moles/Vol] 146 mmol/L High 136 - 145 mmol/L [facility] Urea nitrogen [Mass/Vol] 10 mg/dL 6 - 23 mg/dL [facility] Albumin BCP dye [Mass/Vol] 2.8 g/dL Low 3.4-5.0 [facility] Comment on above: Performed By: #### 2 341-6 #### BEVERLEY Poe ([id number]) [facility] ([facility]) [address] [place] [address] 63099 Anion gap [Moles/Vol] 10 mmol/L Normal 10-20 [facility] Comment on above: Performed By: #### 2 341-6 #### BEVERLEY Poe ([id number]) [facility] ([facility]) [address] [place] [address] 05386 Calcium [Mass/Vol] 8.4 mg/dL Low 8.6-10.6 [facility] Comment on above: Performed By: #### 2 341-6 #### BEVERLEY Poe ([id number]) [facility] ([facility]) [address] [place] [address] Chloride [Moles/Vol] 98 mmol/L Normal 98-107 [facility] Comment on above: Performed By: #### 2 341-6 #### BEVERLEY CARSONER L ([id number]) [facility] ([facility]) [address] [place] [address] CO2 [Moles/Vol] 42 mmol/L Critically high 21-32 [facility] Comment on above: Performed By: #### 2 341-6 #### BEVERLEY DODD L ([id number]) [facility] ([facility]) [address] [place] [address] Creatinine [Mass/Vol] 0.42 mg/dL Low 0.50-1.05 [facility] Comment on above: Performed By: #### 2 341-6 #### BEVERLEY Poe ([id number]) [facility] ([facility]) [address] [place] [address] GFR/1.73 sq M.predicted MDRD (S/P/Bld) [Vol rate/Area] mL/min/{1.73_m2} Normal >60 [facility] Comment on above: Result Comment: Calc ulations of estimated GFR are performed using the 2020 CKD-EPI Study Refit equation without the race variable for the IDMS-Traceable creatinine methods. https://jasn.asnjournals.org/content//ASN.83404 59343 Performed By: #### 2 341-6 #### BEVERLEY DODD L ([id number]) [facility] ([facility]) [address] [place] [address] Glucose [Mass/Vol] 140 mg/dL High 74-99 [facility] Comment on above: Performed By: #### 2 341-6 #### BEVERLEY DODD L ([id number]) [facility] ([facility]) [address] [place] [address] Phosphate [Mass/Vol] 3.3 mg/dL Normal 2.5-4.9 [facility] Comment on above: Result Comment: The performance characteristics of phosphorus testing in heparinized plasma have been validated by the individual laboratory site where testing is performed. Testing on heparinized plasma is not approved by the FDA; however, such approval is not necessary. Performed By: #### 2 341-6 #### BEVERLEY Poe ([id number]) [facility] ([facility]) [address] [place] [address] Potassium [Moles/Vol] 4.0 mmol/L Normal 3.5-5.3 [facility] Comment on above: Performed By: #### 2 341-6 #### BEVERLEY Poe ([id number]) [facility] ([facility]) [address] [place] [address] 74935 Sodium [Moles/Vol] 146 mmol/L High 136-145 [facility] Comment on above: Performed By: #### 2 341-6 #### BEVERLEY Poe ([id number]) [facility] ([facility]) [address] [place] [address] 12147 Urea nitrogen [Mass/Vol] 10 mg/dL Normal 6-23 [facility] Comment on above: Performed By: #### 2 341-6 #### BEVERLEY Poe ([id number]) [facility] ([facility]) [address] [place] [address] 54435 CBC panel Auto (Bld)on 09-23 Erythrocyte distribution width (RBC) [Ratio] 14.4 % 11.5 - 14.5 % [facility] Hematocrit (Bld) [Volume fraction] 26.9 % Low 36.0 - 46.0 % [facility] Hemoglobin (Bld) [Mass/Vol] 7.7 g/dL Low 12.0 - 16.0 g/dL [facility] Interpretation and review of laboratory results Abnormal [facility] MCH (RBC) [Entitic mass] 29.8 pg 26.0 - 34.0 pg [facility] MCHC (RBC) [Mass/Vol] 28.6 g/dL Low 32.0 - 36.0 g/dL [facility] MCV (RBC) [Entitic vol] 104 fL High 80 - 100 fL [facility] Nucleated RBC/100 WBC (Bld) [Ratio] 0.0 % [facility] Platelets (Bld) [#/Vol] 93 10*3/uL Low [facility] RBC (Bld) [#/Vol] 2.58 10*6/uL [facility] WBC (Bld) [#/Vol] 4.9 10*3/uL [facility] Erythrocyte distribution width (RBC) [Ratio] 14.4 % Normal 11.5-14.5 [facility] Comment on above: Performed By: #### 2 341-6 #### BEVERLEY Poe ([id number]) [facility] ([facility]) [address] [place] [address] 76597 Hematocrit (Bld) [Volume fraction] 26.9 % Low 36.0-46.0 [facility] Comment on above: Performed By: #### 2 341-6 #### BEVERLEY Poe ([id number]) [facility] ([facility]) [address] [place] [address] 02068 Hemoglobin (Bld) [Mass/Vol] 7.7 g/dL Low 12.0-16.0 [facility] Comment on above: Performed By: #### 2 341-6 #### BEVERLEY Poe ([id number]) [facility] ([facility]) [address] [place] [address] 55810 MCH (RBC) [Entitic mass] 29.8 pg Normal 26.0-34.0 [facility] Comment on above: Performed By: #### 2 341-6 #### BEVERLEY Poe ([id number]) [facility] ([facility]) [address] [place] [address] 14554 MCHC (RBC) [Mass/Vol] 28.6 g/dL Low 32.0-36.0 [facility] Comment on above: Performed By: #### 2 341-6 #### BEVERLEY Poe ([id number]) [facility] ([facility]) [address] [place] [address] MCV (RBC) [Entitic vol] 104 fL High 80-100 [facility] Comment on above: Performed By: #### 2 341-6 #### BEVERLEY Poe ([id number]) [facility] ([facility]) [address] [place] [address] 99275 Nucleated RBC/100 WBC (Bld) [Ratio] 0.0 /100 WBCs Normal 0.0-0.0 [facility] Comment on above: Performed By: #### 2 341-6 #### BEVERLEY Poe ([id number]) [facility] ([facility]) [address] [place] [address] 52734 Platelets (Bld) [#/Vol] 93 x10*3/uL Low 150-450 [facility] Comment on above: Performed By: #### 2 341-6 #### BEVERLEY Poe ([id number]) [facility] ([facility]) [address] [place] [address] 99607 RBC (Bld) [#/Vol] 2.58 x10*6/uL Low 4.00-5.20 [facility] Comment on above: Performed By: #### 2 341-6 #### BEVERLEY Poe ([id number]) [facility] ([facility]) [address] [place] [address] 41872 WBC (Bld) [#/Vol] 4.9 x10*3/uL Normal 4.4-11.3 [facility] Comment on above: Performed By: #### 2 341-6 #### BEVERLEY Poe ([id number]) [facility] ([facility]) [address] [place] [address] ANGIO CORONARY ART WITH H EARTFLOW IF SCORE >30%on 09-23-2023 CT ANGIO CORONARY ART WITH HEARTFLOW IF SCORE >30% Interpreted By: Yair Pham and Hima Mccarty STUDY: CT ANGIO CORONARY ART WITH HEARTFLOW IF SCORE >30%; 09/26/2023 1:38 pm INDICATION: Signs/Symptoms:Reduced EF; Pre Op optimization. COMPARISON: None. ACCESSION NUMBER(S): [id number] ORDERING CLINICIAN: KANG JULIAN TECHNIQUE: Using multi-detector [...] Yair Pham 09/28/2023 11:26 AM Dictation workstation: [id number] [facility] Carcinoembryonic Agon 2022 Carcinoembryonic Ag [Mass/Vol] ng/mL [facility] Comment on above: Order Comment: REF V ALUES NONSMOKERS 0-2.5 SMOKERS 0-5.0CEA testing is performed by chemiluminescent immunoassay using the Siemens xG Technology. Values obtained with different analytic methods cannot [...] By: #### 2 341-6 #### BEVERLEY Poe ([id number]) [facility] ([facility]) [address] [place] [address] 18117 Carcinoembryonic Ag [Mass/Vo l]on 09-23-2023 [facility] Carcinoembryonic Antigenon 1 11-23-2022 Carcinoembryonic Ag [Mass/Vol] ug/L ug/L [facility] Glucose Test strip manual (B ld) [Mass/Vol]on 09-23-2023 Glucose [Mass/Vol] 146 mg/dL High 74 - 99 mg/dL [facility] Interpretation and review of laboratory results Abnormal [facility] Glucose [Mass/Vol] 146 mg/dL High 74-99 [facility] Comment on above: Performed By: #### 2 341-6 #### BEVERLEY Poe ([id number]) [facility] ([facility]) [address] [place] [address] 06573 Glucose [Mass/Vol] 161 mg/dL High 74 - 99 mg/dL [facility] Interpretation and review of laboratory results Abnormal [facility] Glucose [Mass/Vol] 161 mg/dL High 74-99 [facility] Comment on above: Performed By: #### 2 341-6 #### BEVERLEY Poe ([id number]) [facility] ([facility]) [address] [place] [address] 16819 Magnesiumon 09-23-2023 Magnesium [Mass/Vol] 2.04 mg/dL 1.60 - 2.40 mg/dL [facility] Magnesium [Mass/Vol] 2.04 mg/dL Normal 1.60-2.40 [facility] Comment on above: Performed By: #### 2 341-6 #### BEVERLEY Poe ([id number]) [facility] ([facility]) [address] [place], [place] [id number] Magnesium [Mass/Vol]on 09-23 Interpretation and review of laboratory results Normal [facility] No Panel Informationon 09-23 [facility] Renal function 2000 panelon 09-23-2023 Albumin BCP dye [Mass/Vol] 2.9 g/dL Low 3.4 - 5.0 g/dL [facility] Anion gap [Moles/Vol] 8 mmol/L Low 10 - 2 0 mmol/L [facility] Calcium [Mass/Vol] 8.7 mg/dL 8.6 - 10. 6 mg/dL [facility] Chloride [Moles/Vol] 100 mmol/L 98 - 10 7 mmol/L [facility] CO2 [Moles/Vol] 40 mmol/L Critically high 21 - 32 mmol/L [facility] Creatinine [Mass/Vol] 0.42 mg/dL Low 0.50 - 1.05 mg/dL [facility] GFR/1.73 sq M.predicted MDRD (S/P/Bld) [Vol rate/Area] - PINF [facility] Glucose [Mass/Vol] 123 mg/dL High 74 - 99 mg/dL [facility] Interpretation and review of laboratory results Abnormal [facility] Phosphate [Mass/Vol] 3.0 mg/dL 2.5 - 4 .9 mg/dL [facility] Potassium [Moles/Vol] 4.0 mmol/L 3.5 - 5.3 mmol/L [facility] Sodium [Moles/Vol] 144 mmol/L 136 - 145 mmol/L [facility] Urea nitrogen [Mass/Vol] 13 mg/dL 6 - 23 mg/dL [facility] Albumin BCP dye [Mass/Vol] 2.9 g/dL Low 3.4-5.0 [facility] Comment on above: Performed By: #### 2 341-6 #### BEVERLEY Poe ([id number]) [facility] ([facility]) [address] [place] [address] Anion gap [Moles/Vol] 8 mmol/L Low 10-20 [facility] Comment on above: Performed By: #### 2 341-6 #### BEVERLEY DODD L ([id number]) [facility] ([facility]) [address] [place] [address] Calcium [Mass/Vol] 8.7 mg/dL Normal 8.6-10.6 [facility] Comment on above: Performed By: #### 2 341-6 #### BEVERLEY DODD L ([id number]) [facility] ([facility]) [address] [place] [address] 92979 Chloride [Moles/Vol] 100 mmol/L Normal 98-107 [facility] Comment on above: Performed By: #### 2 341-6 #### BEVERLEY DODD L ([id number]) [facility] ([facility]) [address] [place] [address] 10143 CO2 [Moles/Vol] 40 mmol/L Critically high 21-32 [facility] Comment on above: Performed By: #### 2 341-6 #### BEVERLEY DODD L ([id number]) [facility] ([facility]) [address] [place] [address] Creatinine [Mass/Vol] 0.42 mg/dL Low 0.50-1.05 [facility] Comment on above: Performed By: #### 2 341-6 #### BEVERLEY DODD L ([id number]) [facility] ([facility]) [address] [place] [address] GFR/1.73 sq M.predicted MDRD (S/P/Bld) [Vol rate/Area] mL/min/{1.73_m2} Normal >60 [facility] Comment on above: Result Comment: Calc ulations of estimated GFR are performed using the 2020 CKD-EPI Study Refit equation without the race variable for the IDMS-Traceable creatinine methods. https://jasn.asnjournals.org/content//ASN.30357 43288 Performed By: #### 2 341-6 #### BEVERLEY Poe ([id number]) [facility] ([facility]) [address] [place] [address] Glucose [Mass/Vol] 123 mg/dL High 74-99 [facility] Comment on above: Performed By: #### 2 341-6 #### BEVERLEY Poe ([id number]) [facility] ([facility]) [address] [place] [address] Phosphate [Mass/Vol] 3.0 mg/dL Normal 2.5-4.9 [facility] Comment on above: Result Comment: The performance characteristics of phosphorus testing in heparinized plasma have been validated by the individual laboratory site where testing is performed. Testing on heparinized plasma is not approved by the FDA; however, such approval is not necessary. Performed By: #### 2 341-6 #### BEVERLEY Poe ([id number]) [facility] ([facility]) [address] [place] [address] Potassium [Moles/Vol] 4.0 mmol/L Normal 3.5-5.3 [facility] Comment on above: Performed By: #### 2 341-6 #### BEVERLEY Poe ([id number]) [facility] ([facility]) [address] [place] [address] 35114 Sodium [Moles/Vol] 144 mmol/L Normal 136-145 [facility] Comment on above: Performed By: #### 2 341-6 #### BEVERLEY Poe ([id number]) [facility] ([facility]) [address] [place] [address] Urea nitrogen [Mass/Vol] 13 mg/dL Normal 6-23 [facility] Comment on above: Performed By: #### 2 341-6 #### BEVERLEY Poe ([id number]) [facility] ([facility]) [address] [place] [address] Bacteria identified Cx Nom ( U)Ordered By: Rakesh Srivastava on 09-22-2023 Interpretation and review of laboratory results Abnormal [facility] CBC panel Auto (Bld)on 09-22 Erythrocyte distribution width (RBC) [Ratio] 14.6 % High 11.5 - 14.5 % [facility] Hematocrit (Bld) [Volume fraction] 27.9 % Low 36.0 - 46.0 % [facility] Hemoglobin (Bld) [Mass/Vol] 8.0 g/dL Low 12.0 - 16.0 g/dL [facility] Interpretation and review of laboratory results Abnormal [facility] MCH (RBC) [Entitic mass] 29.9 pg 26.0 - 34.0 pg [facility] MCHC (RBC) [Mass/Vol] 28.7 g/dL Low 32.0 - 36.0 g/dL [facility] MCV (RBC) [Entitic vol] 104 fL High 80 - 100 fL [facility] Nucleated RBC/100 WBC (Bld) [Ratio] 0.0 % [facility] Platelets (Bld) [#/Vol] 99 10*3/uL Low [facility] RBC (Bld) [#/Vol] 2.68 10*6/uL [facility] WBC (Bld) [#/Vol] 4.7 10*3/uL [facility] Erythrocyte distribution width (RBC) [Ratio] 14.6 % High 11.5-14.5 [facility] Comment on above: Performed By: #### 3 4532-2 #### BEVERLEY Poe (51225) [facility] ([facility]) [address] [place] [address] Hematocrit (Bld) [Volume fraction] 27.9 % Low 36.0-46.0 [facility] Comment on above: Performed By: #### 3 4532-2 #### BEVERLEY Poe ([id number]) [facility] ([facility]) [address] [place] [address] Hemoglobin (Bld) [Mass/Vol] 8.0 g/dL Low 12.0-16.0 [facility] Comment on above: Performed By: #### 3 4531-2 #### BEVERLEY Poe ([id number]) [facility] ([facility]) [address] [place] [address] MCH (RBC) [Entitic mass] 29.9 pg Normal 26.0-34.0 [facility] Comment on above: Performed By: #### 3 4531-2 #### BEVERLEY Poe ([id number]) [facility] ([facility]) [address] [place] [address] MCHC (RBC) [Mass/Vol] 28.7 g/dL Low 32.0-36.0 [facility] Comment on above: Performed By: #### 3 4531-2 #### BEVERLEY Poe ([id number]) [facility] ([facility]) [address] [place] [address] MCV (RBC) [Entitic vol] 104 fL High 80-100 [facility] Comment on above: Performed By: #### 3 4531-2 #### BEVERLEY Poe ([id number]) [facility] ([facility]) [address] [place] [address] Nucleated RBC/100 WBC (Bld) [Ratio] 0.0 /100 WBCs Normal 0.0-0.0 [facility] Comment on above: Performed By: #### 3 4531-2 #### BEVERLEY Poe ([id number]) [facility] ([facility]) [address] [place] [address] Platelets (Bld) [#/Vol] 99 x10*3/uL Low 150-450 [facility] Comment on above: Performed By: #### 3 4531-2 #### BEVERLEY Poe (85562) [facility] ([facility]) [address] [place] [address] RBC (Bld) [#/Vol] 2.68 x10*6/uL Low 4.00-5.20 [facility] Comment on above: Performed By: #### 3 4532-2 #### BEVERLEY Poe ([id number]) [facility] ([facility]) [address] [place] [address] WBC (Bld) [#/Vol] 4.7 x10*3/uL Normal 4.4-11.3 [facility] Comment on above: Performed By: #### 3 4532-2 #### BEVERLEY Poe ([id number]) [facility] ([facility]) [address] [place] [address] 87407 Glucose Test strip manual (B ld) [Mass/Vol]on 09-22-2023 Glucose [Mass/Vol] 160 mg/dL High 74 - 99 mg/dL [facility] Interpretation and review of laboratory results Abnormal [facility] Glucose [Mass/Vol] 160 mg/dL High 74-99 [facility] Comment on above: Performed By: #### 2 341-6 #### BEVERLEY Poe ([id number]) [facility] ([facility]) [address] [place] [address] 60780 Glucose [Mass/Vol] 174 mg/dL High 74 - 99 mg/dL [facility] Interpretation and review of laboratory results Abnormal [facility] Glucose [Mass/Vol] 174 mg/dL High 74-99 [facility] Comment on above: Performed By: #### 2 341-6 #### BEVERLEY Poe ([id number]) [facility] ([facility]) [address] [place] [address] 43526 Glucose [Mass/Vol] 135 mg/dL High 74-99 [facility] Comment on above: Performed By: #### 2 341-6 #### BEVERLEY Poe ([id number]) [facility] ([facility]) [address] [place] [address] 55816 Glucose [Mass/Vol] 148 mg/dL High 74 - 99 mg/dL [facility] Interpretation and review of laboratory results Abnormal [facility] Glucose [Mass/Vol] 148 mg/dL High 74-99 [facility] Comment on above: Performed By: #### 3 4532-2 #### BEVERLEY Poe ([id number]) [facility] ([facility]) [address] [place] [address] Magnesiumon 09-22-2023 Magnesium [Mass/Vol] 2.07 mg/dL 1.60 - 2.40 mg/dL [facility] Magnesium [Mass/Vol] 2.07 mg/dL Normal 1.60-2.40 [facility] Comment on above: Performed By: #### 3 4532-2 #### BEVERLEY Poe ([id number]) [facility] ([facility]) [address] [place] [address] Magnesium [Mass/Vol]on 09-22 Interpretation and review of laboratory results Normal [facility] [facility] No Panel Informationon 09-22 [facility] Renal function 2000 panelon 09-22-2023 Albumin BCP dye [Mass/Vol] 2.7 g/dL Low 3.4 - 5.0 g/dL [facility] Anion gap [Moles/Vol] 11 mmol/L 10 - 2 0 mmol/L [facility] Calcium [Mass/Vol] 8.3 mg/dL Low 8.6 - 10. 6 mg/dL [facility] Chloride [Moles/Vol] 101 mmol/L 98 - 10 7 mmol/L [facility] CO2 [Moles/Vol] 38 mmol/L High 21 - 32 mmol/L [facility] Creatinine [Mass/Vol] 0.42 mg/dL Low 0.50 - 1.05 mg/dL [facility] GFR/1.73 sq M.predicted MDRD (S/P/Bld) [Vol rate/Area] - PINF [facility] Glucose [Mass/Vol] 134 mg/dL High 74 - 99 mg/dL [facility] Interpretation and review of laboratory results Abnormal [facility] Phosphate [Mass/Vol] 3.4 mg/dL 2.5 - 4 .9 mg/dL [facility] Potassium [Moles/Vol] 4.0 mmol/L 3.5 - 5.3 mmol/L [facility] Sodium [Moles/Vol] 146 mmol/L High 136 - 145 mmol/L [facility] Urea nitrogen [Mass/Vol] 15 mg/dL 6 - 23 mg/dL [facility] Albumin BCP dye [Mass/Vol] 2.7 g/dL Low 3.4-5.0 [facility] Comment on above: Performed By: #### 3 4531-2 #### BEVERLEY Poe ([id number]) [facility] ([facility]) [address] [place] [address] Anion gap [Moles/Vol] 11 mmol/L Normal 10-20 [facility] Comment on above: Performed By: #### 3 4531-2 #### BEVERLEY Poe ([id number]) [facility] ([facility]) [address] [place] [address] Calcium [Mass/Vol] 8.3 mg/dL Low 8.6-10.6 [facility] Comment on above: Performed By: #### 3 4531-2 #### BEVERLEY Poe ([id number]) [facility] ([facility]) [address] [place] [address] Chloride [Moles/Vol] 101 mmol/L Normal 98-107 [facility] Comment on above: Performed By: #### 3 4531-2 #### BEVERLEY Poe ([id number]) [facility] ([facility]) [address] [place] [address] CO2 [Moles/Vol] 38 mmol/L High 21-32 [facility] Comment on above: Performed By: #### 3 4531-2 #### BEVERLEY Poe ([id number]) [facility] ([facility]) [address] [place] [address] Creatinine [Mass/Vol] 0.42 mg/dL Low 0.50-1.05 [facility] Comment on above: Performed By: #### 3 4531-2 #### BEVERLEY Poe ([id number]) [facility] ([facility]) [address] [place] [address] GFR/1.73 sq M.predicted MDRD (S/P/Bld) [Vol rate/Area] mL/min/{1.73_m2} Normal >60 [facility] Comment on above: Result Comment: Calc ulations of estimated GFR are performed using the 2020 CKD-EPI Study Refit equation without the race variable for the IDMS-Traceable creatinine methods. https://jasn.asnjournals.org/content/early//ASN.23148 12251 Performed By: #### 3 4532-2 #### BEVERLEY Poe ([id number]) [facility] ([facility]) [address] [place] [address] Glucose [Mass/Vol] 134 mg/dL High 74-99 [facility] Comment on above: Performed By: #### 3 4532-2 #### BEVERLEY Poe ([id number]) [facility] ([facility]) [address] [place] [address] Phosphate [Mass/Vol] 3.4 mg/dL Normal 2.5-4.9 [facility] Comment on above: Result Comment: The performance characteristics of phosphorus testing in heparinized plasma have been validated by the individual laboratory site where testing is performed. Testing on heparinized plasma is not approved by the FDA; however, such approval is not necessary. Performed By: #### 3 4532-2 #### BEVERLEY Poe ([id number]) [facility] ([facility]) [address] [place] [address] Potassium [Moles/Vol] 4.0 mmol/L Normal 3.5-5.3 [facility] Comment on above: Performed By: #### 3 4532-2 #### BEVERLEY Poe ([id number]) [facility] ([facility]) [address] [place] [address] Sodium [Moles/Vol] 146 mmol/L High 136-145 [facility] Comment on above: Performed By: #### 3 4532-2 #### BEVERLEY Poe ([id number]) [facility] ([facility]) [address] [place] [address] Urea nitrogen [Mass/Vol] 15 mg/dL Normal 6-23 [facility] Comment on above: Performed By: #### 3 4532-2 #### BEVERLEY Poe ([id number]) [facility] ([facility]) [address] [place] [address] Urine cultureOrdered By: Kel Srivastava on 09-22-2023 Bacteria identified Cx Nom (U) >100,000 Enterococcus faecium Abnormal [facility] CBC panel Auto (Bld)on 09-21 Erythrocyte distribution width (RBC) [Ratio] 14.4 % 11.5 - 14.5 % [facility] Hematocrit (Bld) [Volume fraction] 25.6 % Low 36.0 - 46.0 % [facility] Hemoglobin (Bld) [Mass/Vol] 8.0 g/dL Low 12.0 - 16.0 g/dL [facility] Interpretation and review of laboratory results Abnormal [facility] MCH (RBC) [Entitic mass] 30.5 pg 26.0 - 34.0 pg [facility] MCHC (RBC) [Mass/Vol] 31.3 g/dL Low 32.0 - 36.0 g/dL [facility] MCV (RBC) [Entitic vol] 98 fL 80 - 100 fL [facility] Nucleated RBC/100 WBC (Bld) [Ratio] 0.0 % [facility] Platelets (Bld) [#/Vol] 88 10*3/uL Low [facility] RBC (Bld) [#/Vol] 2.62 10*6/uL [facility] WBC (Bld) [#/Vol] 5.0 10*3/uL [facility] Erythrocyte distribution width (RBC) [Ratio] 14.4 % Normal 11.5-14.5 [facility] Comment on above: Performed By: #### 2 341-6 #### BEVERLEY Poe ([id number]) [facility] ([facility]) [address] [place] [address] Hematocrit (Bld) [Volume fraction] 25.6 % Low 36.0-46.0 [facility] Comment on above: Performed By: #### 2 341-6 #### BEVERLEY Poe ([id number]) [facility] ([facility]) [id number] [place] [address] Hemoglobin (Bld) [Mass/Vol] 8.0 g/dL Low 12.0-16.0 [facility] Comment on above: Performed By: #### 2 341-6 #### BEVERLEY Poe ([id number]) [facility] ([facility]) [address] [place] [address] MCH (RBC) [Entitic mass] 30.5 pg Normal 26.0-34.0 [facility] Comment on above: Performed By: #### 2 341-6 #### BEVERLEY Poe ([id number]) [facility] ([facility]) [address] [place] [address] MCHC (RBC) [Mass/Vol] 31.3 g/dL Low 32.0-36.0 [facility] Comment on above: Performed By: #### 2 341-6 #### BEVERLEY Poe ([id number]) [facility] ([facility]) [address] [place] [address] MCV (RBC) [Entitic vol] 98 fL Normal 80-100 [facility] Comment on above: Performed By: #### 2 341-6 #### BEVERLEY Poe ([id number]) [facility] ([facility]) [address] [place] [address]87[address] Nucleated RBC/100 WBC (Bld) [Ratio] 0.0 /100 WBCs Normal 0.0-0.0 [facility] Comment on above: Performed By: #### 2 341-6 #### BEVERLEY Poe ([id number]) [facility] ([facility]) [address] [place] [address] Platelets (Bld) [#/Vol] 88 x10*3/uL Low 150-450 [facility] Comment on above: Performed By: #### 2 341-6 #### BEVERLEY Poe ([id number]) [facility] ([facility]) [address] [place] [address]272 RBC (Bld) [#/Vol] 2.62 x10*6/uL Low 4.00-5.20 [facility] Comment on above: Performed By: #### 2 341-6 #### BEVERLEY Poe ([id number]) [facility] ([facility]) [address] [place] [address] WBC (Bld) [#/Vol] 5.0 x10*3/uL Normal 4.4-11.3 [facility] Comment on above: Performed By: #### 2 341-6 #### BEVERLEY Poe ([id number]) [facility] ([facility]) [address] [place] [address] Cancer Ag 125 Qnon 3 Interpretation and review of laboratory results Normal [facility] Cancer Antigen 125on 023 Cancer Ag 125 Qn 22.0 [arb'U]/mL 0.0 - 30 .2 U/mL [facility] Glucose Test strip manual (B ld) [Mass/Vol]on 09-21-2023 Glucose [Mass/Vol] 189 mg/dL High 74 - 99 mg/dL [facility] Interpretation and review of laboratory results Abnormal [facility] Glucose [Mass/Vol] 189 mg/dL High 74-99 [facility] Comment on above: Performed By: #### 3 4532-2 #### BEVERLEY Poe ([id number]) [facility] [address] [place] [address] Glucose [Mass/Vol] 120 mg/dL High 74 - 99 mg/dL [facility] Interpretation and review of laboratory results Abnormal [facility] Glucose [Mass/Vol] 120 mg/dL High 74-99 [facility] Comment on above: Performed By: #### 3 4532-2 #### BEVERLEY Poe ([id number]) [facility] ([facility]) [address] [place] [address] Glucose [Mass/Vol] 162 mg/dL High 74 - 99 mg/dL [facility] Interpretation and review of laboratory results Abnormal [facility] Glucose [Mass/Vol] 162 mg/dL High 74-99 [facility] Comment on above: Performed By: #### 3 4532-2 #### BEVERLEY Poe ([id number]) [facility] ([facility]) [address] [place] [address] Glucose [Mass/Vol] 134 mg/dL High 74 - 99 mg/dL [facility] Interpretation and review of laboratory results Abnormal [facility] Glucose [Mass/Vol] 134 mg/dL High 74-99 [facility] Comment on above: Performed By: #### 2 341-6 #### BEVERLEY Poe ([id number]) [facility] ([facility]) [address] [place] [address] Glucose [Mass/Vol] 136 mg/dL High 74 - 99 mg/dL [facility] Interpretation and review of laboratory results Abnormal [facility] Glucose [Mass/Vol] 136 mg/dL High 74-99 [facility] Comment on above: Performed By: #### 2 341-6 #### BEVERLEY Poe ([id number]) [facility] ([facility]) [address] [place] [address] Glucose [Mass/Vol] 123 mg/dL High 74 - 99 mg/dL [facility] Interpretation and review of laboratory results Abnormal [facility] Glucose [Mass/Vol] 123 mg/dL High 74-99 [facility] Comment on above: Performed By: #### 2 341-6 #### BEVERLEY Poe ([id number]) [facility] ([facility]) [address] [place] [id number] MR PELVIS W AND WO IV TI [...] colovesical colovaginal fistula. COMPARISON: None ACCESSION NUMBER(S): [id number] ORDERING CLINICIAN: KANG JULIAN TECHNIQUE: Multiplanar MRI [...] Cristina MD. This study was interpreted at [place], [place]. MACRO: None Signed by: Clint Woods 09/25/2023 3:47 PM Dictation workstation: [id number] Normal [facility] MR Pelvis WO and W contrast Jack 09-21-2023 Radiology Study observation (narrative) [facility] Work Phone: Magnesiumon 09-21-2023 Magnesium [Mass/Vol] 2.05 mg/dL 1.60 - 2.40 mg/dL [facility] Magnesium [Mass/Vol] 2.05 mg/dL Normal 1.60-2.40 [facility] Comment on above: Performed By: #### 2 341-6 #### BEVERLEY Poe ([id number]) [facility] ([facility]) [address] [place] [address] Magnesium [Mass/Vol]on 09-21 Interpretation and review of laboratory results Normal [facility] No Panel Informationon 09-21 [facility] Renal function 2000 panelon 09-21-2023 Albumin BCP dye [Mass/Vol] 2.7 g/dL Low 3.4 - 5.0 g/dL [facility] Anion gap [Moles/Vol] 8 mmol/L Low 10 - 2 0 mmol/L [facility] Calcium [Mass/Vol] 8.3 mg/dL Low 8.6 - 10. 6 mg/dL [facility] Chloride [Moles/Vol] 101 mmol/L 98 - 10 7 mmol/L [facility] CO2 [Moles/Vol] 41 mmol/L Critically high 21 - 32 mmol/L [facility] Creatinine [Mass/Vol] 0.45 mg/dL Low 0.50 - 1.05 mg/dL [facility] GFR/1.73 sq M.predicted MDRD (S/P/Bld) [Vol rate/Area] - PINF [facility] Glucose [Mass/Vol] 140 mg/dL High 74 - 99 mg/dL [facility] Interpretation and review of laboratory results Abnormal [facility] Phosphate [Mass/Vol] 3.4 mg/dL 2.5 - 4 .9 mg/dL [facility] Potassium [Moles/Vol] 3.8 mmol/L 3.5 - 5.3 mmol/L [facility] Sodium [Moles/Vol] 146 mmol/L High 136 - 145 mmol/L [facility] Urea nitrogen [Mass/Vol] 12 mg/dL 6 - 23 mg/dL [facility] Albumin BCP dye [Mass/Vol] 2.7 g/dL Low 3.4-5.0 [facility] Comment on above: Performed By: #### 3 4532-2 #### BEVERLEY Poe ([id number]) [facility] ([facility]) [address] [place] [address] Anion gap [Moles/Vol] 8 mmol/L Low 10-20 [facility] Comment on above: Performed By: #### 3 4532-2 #### BEVERLEY Poe ([id number]) [facility] ([facility]) [address] [place] [address] Calcium [Mass/Vol] 8.3 mg/dL Low 8.6-10.6 [facility] Comment on above: Performed By: #### 3 4532-2 #### BEVERLEY Poe ([id number]) [facility] ([facility]) [address] [place] [address] Chloride [Moles/Vol] 101 mmol/L Normal 98-107 [facility] Comment on above: Performed By: #### 3 4532-2 #### BEVERLEY Poe ([id number]) [facility] ([facility]) [address] [place] [address] CO2 [Moles/Vol] 41 mmol/L Critically high 21-32 [facility] Comment on above: Performed By: #### 3 4532-2 #### BEVERLEY Poe ([id number]) [facility] ([facility]) [address] [place] [address] Creatinine [Mass/Vol] 0.45 mg/dL Low 0.50-1.05 [facility] Comment on above: Performed By: #### 3 4532-2 #### BEVERLEY Poe ([id number]) [facility] ([facility]) [address] [place] [address] GFR/1.73 sq M.predicted MDRD (S/P/Bld) [Vol rate/Area] mL/min/{1.73_m2} Normal >60 [facility] Comment on above: Result Comment: Calc ulations of estimated GFR are performed using the 2020 CKD-EPI Study Refit equation without the race variable for the IDMS-Traceable creatinine methods. https://jasn.asnjournals.org/content//ASN.43417 66499 Performed By: #### 3 4532-2 #### BEVERLEY Poe ([id number]) [facility] ([facility]) [address] [place] [address] Glucose [Mass/Vol] 140 mg/dL High 74-99 [facility] Comment on above: Performed By: #### 3 4532-2 #### BEVERLEY Poe ([id number]) [facility] ([facility]) [address] [place] [address] Phosphate [Mass/Vol] 3.4 mg/dL Normal 2.5-4.9 [facility] Comment on above: Result Comment: The performance characteristics of phosphorus testing in heparinized plasma have been validated by the individual laboratory site where testing is performed. Testing on heparinized plasma is not approved by the FDA; however, such approval is not necessary. Performed By: #### 3 4532-2 #### BEVERLEY Poe ([id number]) [facility] ([facility]) [address] [place] [address] Potassium [Moles/Vol] 3.8 mmol/L Normal 3.5-5.3 [facility] Comment on above: Performed By: #### 3 4532-2 #### BEVERLEY Poe ([id number]) [facility] ([facility]) [address] [place] [address] Sodium [Moles/Vol] 146 mmol/L High 136-145 [facility] Comment on above: Performed By: #### 3 4532-2 #### BEVERLEY Poe ([id number]) [facility] ([facility]) [address] [place] [address] Urea nitrogen [Mass/Vol] 12 mg/dL Normal 6-23 [facility] Comment on above: Performed By: #### 3 4532-2 #### BEVERLEY Poe ([id number]) [facility] ([facility]) [address] [place] [address] Bacteria identifiedon 2022 Bacteria identified Cx Nom (U) Test: Urine culture Specimen Source: Indwelling (Stephens) Catheter Specimen Type: Urine Specimen Date: 09/20/2023 3:34 PM Result Date: 09/22/2023 11:36 AM Result Status: Final result Abnormal: Yes Resulting Lab: [facility] [id number] [place] [address] CULTURE >100,000 Enterococcus faecium (Abnormal) Vancomycin Resistant Enterococcus (VRE) SUSCEPTIBILITY Enterococcus faecium METHOD MICROSCAN ---- ------- AMPICILLIN -- Resistant CIPROFLOXACIN -- Resistant DAPTOMYCIN -- Susceptible-dose dependent LEVOFLOXACIN -- Resistant LINEZOLID -- Susceptible NITROFURANTOIN -- Susceptible PENICILLIN -- Resistant TRIMETHOPRIM/SULFAMETHOXA ZOLE -- Resistant VANCOMYCIN -- Resistant Abnormal [facility] Comment on above: Performed By: #### 3 4532-2 #### BEVERLEY Poe ([id number]) [facility] ([facility] [address] [place] [address] CBC panel Auto (Bld)on 09-20 Erythrocyte distribution width (RBC) [Ratio] 14.5 % 11.5 - 14.5 % [facility] Hematocrit (Bld) [Volume fraction] 27.7 % Low 36.0 - 46.0 % [facility] Hemoglobin (Bld) [Mass/Vol] 8.3 g/dL Low 12.0 - 16.0 g/dL [facility] Interpretation and review of laboratory results Abnormal [facility] MCH (RBC) [Entitic mass] 30.6 pg 26.0 - 34.0 pg [facility] MCHC (RBC) [Mass/Vol] 30.0 g/dL Low 32.0 - 36.0 g/dL [facility] MCV (RBC) [Entitic vol] 102 fL High 80 - 100 fL [facility] Nucleated RBC/100 WBC (Bld) [Ratio] 0.0 % [facility] Platelets (Bld) [#/Vol] 92 10*3/uL Low [facility] RBC (Bld) [#/Vol] 2.71 10*6/uL Low [facility] WBC (Bld) [#/Vol] 4.3 10*3/uL [facility] Erythrocyte distribution width (RBC) [Ratio] 14.5 % Normal 11.5-14.5 [facility] Comment on above: Performed By: #### 6 00-7 #### BEVERLEY Poe ([id number]) [facility] ([facility]) [address] [place] [address] Hematocrit (Bld) [Volume fraction] 27.7 % Low 36.0-46.0 [facility] Comment on above: Performed By: #### 6 -7 #### BEVERLEY Poe ([id number]) [facility] ([facility]) [address] [place] [address] Hemoglobin (Bld) [Mass/Vol] 8.3 g/dL Low 12.0-16.0 [facility] Comment on above: Performed By: #### 6 -7 #### BEVERLEY Poe ([id number]) [facility] ([facility]) [address] [place] [address]79[address] MCH (RBC) [Entitic mass] 30.6 pg Normal 26.0-34.0 [facility] Comment on above: Performed By: #### 6 -7 #### BEVERLEY Poe ([id number]) [facility] ([facility]) [address] [place] [address]209 MCHC (RBC) [Mass/Vol] 30.0 g/dL Low 32.0-36.0 [facility] Comment on above: Performed By: #### 6 00-7 #### BEVERLEY Poe ([id number]) [facility] ([facility]) [address] [place] [address]226 MCV (RBC) [Entitic vol] 102 fL High 80-100 [facility] Comment on above: Performed By: #### 6 00-7 #### BEVERLEY Poe ([id number]) [facility] ([facility]) [address] [place] [address]51 Nucleated RBC/100 WBC (Bld) [Ratio] 0.0 /100 WBCs Normal 0.0-0.0 [facility] Comment on above: Performed By: #### 6 00-7 #### BEVERLEY Poe ([id number]) [facility] ([facility]) [address] [place] [address] Platelets (Bld) [#/Vol] 92 x10*3/uL Low 150-450 [facility] Comment on above: Performed By: #### 6 00-7 #### BEVERLEY Poe ([id number]) [facility] ([facility]) [address] [place] [address] RBC (Bld) [#/Vol] 2.71 x10*6/uL Low 4.00-5.20 [facility] Comment on above: Performed By: #### 6 00-7 #### BEVERLEY Poe ([id number]) [facility] ([facility]) [address] [place] [address] WBC (Bld) [#/Vol] 4.3 x10*3/uL Low 4.4-11.3 [facility] Comment on above: Performed By: #### 6 00-7 #### BEVERLEY Poe ([id number]) [facility] ([facility]) [address] [place] [address] Cancer Ag 19-9on 09-20-2023 Cancer Ag 19-9 Qn 6.88 [arb'U]/mL Normal <35.00 [facility] Comment on above: Order Comment: CA 19 -9 testing is performed by chemiluminescent immunoassay using the Loc[employer]jp. Values obtained with different analytic methods cannot [...] By: #### 2 341-6 #### BEVERLEY Poe ([id number]) [facility] ([facility]) [address] [place] [address] Cancer Ag 19-9 Qnon 09-20-20 Interpretation and review of laboratory results Normal [facility] Cancer Antigen 19-9on 2022 Cancer Ag 19-9 Qn 6.88 [arb'U]/mL NINF - 35.00 U/mL [facility] Glucose Test strip manual (B ld) [Mass/Vol]on 09-20-2023 Glucose [Mass/Vol] 210 mg/dL High 74 - 99 mg/dL [facility] Interpretation and review of laboratory results Abnormal [facility] Glucose [Mass/Vol] 210 mg/dL High 74-99 [facility] Comment on above: Performed By: #### 2 341-6 #### BEVERLEY Poe ([id number]) [facility] ([facility]) [address] [place] [address] 11496 Glucose [Mass/Vol] 114 mg/dL High 74 - 99 mg/dL [facility] Interpretation and review of laboratory results Abnormal [facility] Glucose [Mass/Vol] 114 mg/dL High 74-99 [facility] Comment on above: Performed By: #### 2 341-6 #### BEVERLEY Poe ([id number]) [facility] ([facility]) [address] [place] [address] Glucose [Mass/Vol] 152 mg/dL High 74 - 99 mg/dL [facility] Interpretation and review of laboratory results Abnormal [facility] Glucose [Mass/Vol] 152 mg/dL High 74-99 [facility] Comment on above: Performed By: #### 2 341-6 #### BEVERLEY Poe ([id number]) [facility] ([facility]) [address] [place] [address] Glucose [Mass/Vol] 140 mg/dL High 74 - 99 mg/dL [facility] Interpretation and review of laboratory results Abnormal [facility] Glucose [Mass/Vol] 140 mg/dL High 74-99 [facility] Comment on above: Performed By: #### 6 00-7 #### BEVERLEY Poe ([id number]) [facility] ([facility]) [address] [place] [address] 265[address] Glucose [Mass/Vol] 125 mg/dL High 74 - 99 mg/dL [facility] Interpretation and review of laboratory results Abnormal [facility] Glucose [Mass/Vol] 125 mg/dL High 74-99 [facility] Comment on above: Performed By: #### 6 00-7 #### BEVERLEY Poe ([id number]) [facility] ([facility]) [address] [place] [address] 18066 Glucose [Mass/Vol] 111 mg/dL High 74 - 99 mg/dL [facility] Glucose [Mass/Vol] 213 mg/dL High 74 - 99 mg/dL [facility] Interpretation and review of laboratory results Abnormal [facility] Glucose [Mass/Vol] 109 mg/dL High 74 - 99 mg/dL [facility] Interpretation and review of laboratory results Abnormal [facility] Glucose [Mass/Vol] 109 mg/dL High 74-99 [facility] Comment on above: Performed By: #### 6 00-7 #### BEVERLEY Poe ([id number]) [facility] ([facility]) [address] [place] [address] 27515 HCV Ab Ql (S)on 09-20-2023 Interpretation and review of laboratory results Normal [facility] HIV 1+2 Ab+HIV1 p24 Agon HIV 1+2 Ab+HIV1 p24 Ag IA Ql Non-Reactive Normal Nonreactive [facility] Comment on above: Order Comment: [...] By: #### 6 00-7 #### BEVERLEY Poe ([id number]) [facility] ([facility]) [address] [place] [address] 27429 HIV 1+2 Ab+HIV1 p24 Ag IA Ql on 09-20-2023 Interpretation and review of laboratory results Normal [facility] HIV 1/2 Antigen/Antibody Scr een with Reflex to Confirmationon 09-20-2023 HIV 1+2 Ab+HIV1 p24 Ag IA Ql Non-Reactive Nonreactive [facility] Hepatitis C Antibodyon 09-20 HCV Ab Ql (S) Non-Reactive Nonreactive [facility] Hepatitis C virus Abon 09-20 HCV Ab Ql (S) Non-Reactive Normal Nonreactive [facility] Comment on above: Result Comment: Resu lts from patients taking biotin supplements or receiving high-dose biotin therapy should be interpreted with caution due to possible interference with this test. Providers may contact their local laboratory for further information. Performed By: #### 6 00-7 #### BEVERLEY Poe ([id number]) [facility] ([facility]) [address] [place] [address] 38474 Magnesiumon 09-20-2023 Magnesium [Mass/Vol] 2.15 mg/dL 1.60 - 2.40 mg/dL [facility] Magnesium [Mass/Vol] 2.15 mg/dL Normal 1.60-2.40 [facility] Comment on above: Performed By: #### 6 00-7 #### BEVERLEY Poe ([id number]) [facility] ([facility]) [address] [place] [address] 56117 Magnesium [Mass/Vol]on 09-20 Interpretation and review of laboratory results Normal [facility] No Panel Informationon 09-20 [facility] MMODAL MMODAL [facility] Work Phone: No Panel InformationOrdered By: Steven Chacon on 09-20-2023 [facility] Work Phone: Renal function 2000 panelon 09-20-2023 Albumin BCP dye [Mass/Vol] 2.9 g/dL Low 3.4 - 5.0 g/dL [facility] Anion gap [Moles/Vol] 9 mmol/L Low 10 - 2 0 mmol/L [facility] Calcium [Mass/Vol] 8.7 mg/dL 8.6 - 10. 6 mg/dL [facility] Chloride [Moles/Vol] 99 mmol/L 98 - 10 7 mmol/L [facility] CO2 [Moles/Vol] 40 mmol/L Critically high 21 - 32 mmol/L [facility] Creatinine [Mass/Vol] 0.51 mg/dL 0.50 - 1.05 mg/dL [facility] GFR/1.73 sq M.predicted MDRD (S/P/Bld) [Vol rate/Area] - PINF [facility] Glucose [Mass/Vol] 117 mg/dL High 74 - 99 mg/dL [facility] Interpretation and review of laboratory results Abnormal [facility] Phosphate [Mass/Vol] 3.0 mg/dL 2.5 - 4 .9 mg/dL [facility] Potassium [Moles/Vol] 3.9 mmol/L 3.5 - 5.3 mmol/L [facility] Sodium [Moles/Vol] 144 mmol/L 136 - 145 mmol/L [facility] Urea nitrogen [Mass/Vol] 9 mg/dL 6 - 23 mg/dL [facility] Albumin BCP dye [Mass/Vol] 2.9 g/dL Low 3.4-5.0 [facility] Comment on above: Performed By: #### 6 -7 #### BEVERLEY Poe ([id number]) [facility] ([facility]) [address] [place] [address] Anion gap [Moles/Vol] 9 mmol/L Low 10-20 [facility] Comment on above: Performed By: #### 6 -7 #### BEVERLEY CARSONER L ([id number]) [facility] ([facility]) [address] [place] [address] Calcium [Mass/Vol] 8.7 mg/dL Normal 8.6-10.6 [facility] Comment on above: Performed By: #### 6 -7 #### BEVERLEY SCHMOTZER L ([id number]) [facility] ([facility]) [address] [place] [address] Chloride [Moles/Vol] 99 mmol/L Normal 98-107 [facility] Comment on above: Performed By: #### 6 00-7 #### BEVERLEY VORAMOTZER L ([id number]) [facility] ([facility]) [id number] [place] [address] 68240 CO2 [Moles/Vol] 40 mmol/L Critically high 21-32 [facility] Comment on above: Performed By: #### 6 -7 #### BEVERLEY VORAMOTZER L ([id number]) [facility] ([facility]) [address] [place] [address] 68845 Creatinine [Mass/Vol] 0.51 mg/dL Normal 0.50-1.05 [facility] Comment on above: Performed By: #### 6 00-7 #### BEVERLEY VORAMOTZER L ([id number]) [facility] ([facility]) [id number] [place] [address] 70045 GFR/1.73 sq M.predicted MDRD (S/P/Bld) [Vol rate/Area] mL/min/{1.73_m2} Normal >60 [facility] Comment on above: Result Comment: Calc ulations of estimated GFR are performed using the 2020 CKD-EPI Study Refit equation without the race variable for the IDMS-Traceable creatinine methods. https://jasn.asnjournals.org/content/early//ASN.84082 26449 Performed By: #### 6 00-7 #### BEVERLEY VORAMOTZER L ([id number]) [facility] ([facility]) [address] [place] [address] 60305 Glucose [Mass/Vol] 117 mg/dL High 74-99 [facility] Comment on above: Performed By: #### 6 -7 #### BEVERLEY DODD L ([id number]) [facility] ([facility]) [address] [place] [address] 14490 Phosphate [Mass/Vol] 3.0 mg/dL Normal 2.5-4.9 [facility] Comment on above: Result Comment: The performance characteristics of phosphorus testing in heparinized plasma have been validated by the individual laboratory site where testing is performed. Testing on heparinized plasma is not approved by the FDA; however, such approval is not necessary. Performed By: #### 6 -7 #### BEVERLEY Poe ([id number]) [facility] ([facility]) [address] [place] [address] 53345 Potassium [Moles/Vol] 3.9 mmol/L Normal 3.5-5.3 [facility] Comment on above: Performed By: #### 6 00-7 #### BEVERLEY DODD L ([id number]) [facility] ([facility]) [address] [place] [address] 77446 Sodium [Moles/Vol] 144 mmol/L Normal 136-145 [facility] Comment on above: Performed By: #### 6 -7 #### BEVERLEY VORAMOTZER L ([id number]) [facility] ([facility]) [address] [place] [address] 33933 Urea nitrogen [Mass/Vol] 9 mg/dL Normal 6-23 [facility] Comment on above: Performed By: #### 6 -7 #### BEVERLEY VORAMOTZER L ([id number]) [facility] ([facility]) [address] [place] [address] 74466 TRANSTHORACIC ECHO (TTE) [facility] 09-20-2023 TRANSTHORACIC ECHO (TTE) [facility], [address] [place] [address] 76736 and TRANSTHORACIC ECHOCARDIOGRAM REPORT Patient Name: POLI RAMIREZ Reading Physician: [id number] Kandi Roberts MD Study Date: 09/20/2023 Ordering Provider: [id number] VARSHA SOTELO MRN/PID: [id number] Fellow: Nurse: Mare Higgins Date of /Age: 12 1950 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 Non Invasive Blood Pressure: 126 /75 mmHg Study Type: TRANSTHORACIC ECHO (TTE) COMPLETE Diagnosis/ICD: Encounter for preprocedural cardiovascular examination-Z01.810 CPT Code: Echo Complete w Full Doppler-47078 Patient History: Pertinent History: Breast cancer, HTN, [...] LA Area A2C: 21.1 cm2 LA Major [place] A4C: 5.5 cm LA Major [place] A2C: 5.6 cm AORTA MEASUREMENTS: Normal Ranges: [...] Ao (more content not included)... Normal [facility] US Heart TransthoracicOrdere d By: Kandi Roberts on 09-20-2023 Aortic Valve Area by Continuity of Peak Velocity 1.81 [facility] Work Phone: [phone] Aortic Valve Area by Continuity of VTI 2.01 [facility] Work Phone: [phone] AV mn grad 9.0 [facility] Work Phone: [phone] AV pk grad 15.7 [facility] Work Phone: [phone] AV pk abiodun 1.98 [facility] Work Phone: [phone] LA vol index A/L 36.9 [facility] Work Phone: [phone] LV A4C EF 19.0 [facility] Work Phone: LVIDd 5.70 [facility] Work Phone: LVOT diam 1.80 [facility] Work Phone: MV avg E/e' ratio 16.03 [facility] Work Phone: MV E/A ratio 0.61 [facility] Work Phone: RV free wall pk S' 14.30 [facility] Work Phone: Tricuspid annular plane systolic excursion 2.0 [facility] Work Phone: [facility] Work Phone: US Heart Transthoracicon SYNGO [facility] Work Phone: Bacteria identified Cx Nom ( Bld)on 09-19-2023 Interpretation and review of laboratory results Normal [facility] CBC panel Auto (Bld)on 09-19 Erythrocyte distribution width (RBC) [Ratio] 14.1 % 11.5 - 14.5 % [facility] Hematocrit (Bld) [Volume fraction] 28.2 % Low 36.0 - 46.0 % [facility] Hemoglobin (Bld) [Mass/Vol] 8.4 g/dL Low 12.0 - 16.0 g/dL [facility] Interpretation and review of laboratory results Abnormal [facility] MCH (RBC) [Entitic mass] 30.9 pg 26.0 - 34.0 pg [facility] MCHC (RBC) [Mass/Vol] 29.8 g/dL Low 32.0 - 36.0 g/dL [facility] MCV (RBC) [Entitic vol] 104 fL High 80 - 100 fL [facility] Nucleated RBC/100 WBC (Bld) [Ratio] 0.0 % [facility] Platelets (Bld) [#/Vol] 90 10*3/uL Low [facility] RBC (Bld) [#/Vol] 2.72 10*6/uL Low [facility] WBC (Bld) [#/Vol] 4.2 10*3/uL [facility] Erythrocyte distribution width (RBC) [Ratio] 14.1 % Normal 11.5-14.5 [facility] Comment on above: Performed By: #### 5 7021-8 #### BEVERLEY Poe ([id number]) [facility] ([facility]) [id number] [place] [address] 39279 Hematocrit (Bld) [Volume fraction] 28.2 % Low 36.0-46.0 [facility] Comment on above: Performed By: #### 5 7021-8 #### BEVERLEY Poe ([id number]) [facility] ([facility]) [address] [place] [address] 72191 Hemoglobin (Bld) [Mass/Vol] 8.4 g/dL Low 12.0-16.0 [facility] Comment on above: Performed By: #### 5 7021-8 #### BEVERLEY Poe ([id number]) [facility] ([facility]) [address] [place] [address] 95103 MCH (RBC) [Entitic mass] 30.9 pg Normal 26.0-34.0 [facility] Comment on above: Performed By: #### 5 7021-8 #### BEVERLEY Poe ([id number]) [facility] ([facility]) [address] [place] [address] 43155 MCHC (RBC) [Mass/Vol] 29.8 g/dL Low 32.0-36.0 [facility] Comment on above: Performed By: #### 5 7021-8 #### BEVERLEY Poe ([id number]) [facility] ([facility]) [address] [place] [address] 77137 MCV (RBC) [Entitic vol] 104 fL High 80-100 [facility] Comment on above: Performed By: #### 5 7021-8 #### BEVERLEY Poe ([id number]) [facility] ([facility]) [address] [place] [address] 34647 Nucleated RBC/100 WBC (Bld) [Ratio] 0.0 /100 WBCs Normal 0.0-0.0 [facility] Comment on above: Performed By: #### 5 7021-8 #### BEVERLEY Poe ([id number]) [facility] ([facility]) [address] [place] [address] Platelets (Bld) [#/Vol] 90 x10*3/uL Low 150-450 [facility] Comment on above: Performed By: #### 5 7021-8 #### BEVERLEY Poe ([id number]) [facility] ([facility]) [address] [place] [address] RBC (Bld) [#/Vol] 2.72 x10*6/uL Low 4.00-5.20 [facility] Comment on above: Performed By: #### 5 7021-8 #### BEVERLEY DODD L ([id number]) [facility] ([facility]) [address] [place] [address] WBC (Bld) [#/Vol] 4.2 x10*3/uL Low 4.4-11.3 [facility] Comment on above: Performed By: #### 5 7021-8 #### BEVERLEY DODD L ([id number]) [facility] ([facility]) [address] [place] [address] CT HEAD WO IV CONTRASTon CT HEAD WO IV CONTRAST Interpreted By: Susy Bright, STUDY: CT HEAD WO IV CONTRAST; 09/19/2023 3:43 pm INDICATION: Signs/Symptoms:R/o subdural hematoma, thrombocytopenia workup (fall several weeks ago). COMPARISON: None. ACCESSION NUMBER(S): [id number] ORDERING CLINICIAN: KANG JULIAN TECHNIQUE: Axial CT [...] Susy Canales 09/19/2023 4:06 PM Dictation workstation: [id number] Normal [facility] CT Head WO contraston 2022 U[facility] MMODAL U[facility] MMODAL [facility] Work Phone: Radiology Study observation (narrative) [facility] Work Phone: CT Head WO contrastOrdered B y: Susy Canales on 09-19-2023 [facility] Work Phone: ECG 12-LEADon 09-19-2023 ECG 12-LEAD Ventricular Rate 104 Atrial Rate 104 P-R Interval 150 QRS Duration 136 Q-T Interval 352 QTC Calculation(Bazett) 462 P [place] 67 R [place] -54 T [place] 70 QRS Count 17 Q Onset 212 P Onset 137 P Offset 193 T Offset 388 QTC Fredericia 422 Diagnosis Sinus tachycardia with occasional Premature ventricular complexes Left bundle branch block Abnormal ECG When compared with ECG of 19-SEP-2023 12:28, (unconfirmed) Premature ventricular complexes are now Present Confirmed by Simon Piedra ([id number]) on 09/27/2023 12:27:49 PM Normal [facility] ECG 12-LEAD Ventricular Rate 96 Atrial Rate 96 P-R Interval 156 QRS Duration 136 Q-T Interval 380 QTC Calculation(Bazett) 480 P [place] 61 R [place] -49 T [place] 77 QRS Count 16 Q Onset 211 P Onset 133 P Offset 197 T Offset 401 QTC Fredericia 444 Diagnosis Sinus rhythm with occasional Premature ventricular complexes Left axis deviation Left bundle branch block Abnormal ECG No previous ECGs available Confirmed by Harrison Piedra ([id number]) on 09/26/2023 9:00:49 AM Normal [facility] Gas panel (BldA)Ordered By: Allyssa Bach on 09-19-2023 Base excess Calc (Bld) [Moles/Vol] 14.9 mmol/L High -2.0 - 3.0 mmol/L [facility] CO2 (Bld) [Partial pressure] 61 mm[Hg] High [facility] HCO3 (Bld) [Moles/Vol] 41.4 mmol/L High 22.0 - 26.0 mmol/L [facility] Inhaled oxygen concentration 28 % [facility] Interpretation and review of laboratory results Abnormal [facility] Oxygen (Bld) [Partial pressure] 121 mm[Hg] High [facility] Oxyhemoglobin (BldA) [Mass fraction] 96.7 % 94.0 - 98.0 % [facility] pH (Bld) 7.44 [pH] High 7.38 - 7.42 pH [facility] Gas panel (BldA)on Base excess Calc (Bld) [Moles/Vol] 14.9 mmol/L High -2.0-3.0 [facility] Comment on above: Order Comment: While on baseline/ home level of oxygen Performed By: #### 6 00-7 #### BEVERLEY Poe ([id number]) [facility] ([facility]) [address] [place] [address] 64304 CO2 (Bld) [Partial pressure] 61 mm Hg High 38-42 [facility] Comment on above: Order Comment: While on baseline/ home level of oxygen Performed By: #### 6 00-7 #### BEVERLEY PATELTZER L ([id number]) [facility] ([facility]) [address] [place] [address] HCO3 (Bld) [Moles/Vol] 41.4 mmol/L High 22.0-26.0 [facility] Comment on above: Order Comment: While on baseline/ home level of oxygen Performed By: #### 6 00-7 #### BEVERLEY VORAMOTZER L ([id number]) [facility] ([facility]) [address] [place] [address] 16941 Inhaled oxygen concentration 28 % Normal [facility] Comment on above: Order Comment: While on baseline/ home level of oxygen Performed By: #### 6 00-7 #### BEVERLEY Poe ([id number]) [facility] ([facility]) [address] [place] [address] 94218 Oxygen (Bld) [Partial pressure] 121 mm Hg High 85-95 [facility] Comment on above: Order Comment: While on baseline/ home level of oxygen Performed By: #### 6 00-7 #### BEVERLEY Poe ([id number]) [facility] ([facility]) [address] [place] [address] 60075 Oxyhemoglobin (BldA) [Mass fraction] 96.7 % Normal 94.0-98.0 [facility] Comment on above: Order Comment: While on baseline/ home level of oxygen Performed By: #### 6 -7 #### BEVERLEY Poe ([id number]) [facility] ([facility]) [address] [place] [address] 20277 pH (Bld) 7.44 [pH] High 7.38-7.42 [facility] Comment on above: Order Comment: While on baseline/ home level of oxygen Performed By: #### 6 -7 #### BEVERLEY Poe ([id number]) [facility] ([facility]) [address] [place] [address] 01749 Glucose Test strip manual (B ld) [Mass/Vol]on 09-19-2023 Glucose [Mass/Vol] 213 mg/dL High 74-99 [facility] Comment on above: Performed By: #### 6 00-7 #### BEVERLEY DODD L ([id number]) [facility] ([facility]) [address] [place] [address] 38050 Glucose [Mass/Vol] 158 mg/dL High 74 - 99 mg/dL [facility] Interpretation and review of laboratory results Abnormal [facility] Glucose [Mass/Vol] 158 mg/dL High 74-99 [facility] Comment on above: Performed By: #### 6 00-7 #### BEVERLEY Poe ([id number]) [facility] ([facility]) [address] [place] [address] 18408 Glucose [Mass/Vol] 98 mg/dL 74 - 99 mg/dL [facility] Interpretation and review of laboratory results Normal [facility] Glucose [Mass/Vol] 98 mg/dL Normal 74-99 [facility] Comment on above: Performed By: #### 6 00-7 #### BEVERLEY Poe ([id number]) [facility] ([facility]) [address] [place] [address] 05841 Glucose [Mass/Vol] 111 mg/dL High 74-99 [facility] Comment on above: Performed By: #### 6 00-7 #### BEVERLEY Poe ([id number]) [facility] ([facility]) [address] [place] [address] 36963 Glucose [Mass/Vol] 164 mg/dL High 74 - 99 mg/dL [facility] Interpretation and review of laboratory results Abnormal [facility] Glucose [Mass/Vol] 164 mg/dL High 74-99 [facility] Comment on above: Performed By: #### 5 7021-8 #### BEVERLEY Poe ([id number]) [facility] ([facility]) [address] [place] [address] 66764 Glucose [Mass/Vol] 124 mg/dL High 74 - 99 mg/dL [facility] Interpretation and review of laboratory results Abnormal [facility] Glucose [Mass/Vol] 124 mg/dL High 74-99 [facility] Comment on above: Performed By: #### 5 7021-8 #### BEVERLEY Poe ([id number]) [facility] ([facility]) [address] [place] [address] 02409 HBV surface Ag IA Qlon 09-19 Interpretation and review of laboratory results Normal [facility] Hepatitis B Surface Antigeno n 09-19-2023 HBV surface Ag IA Ql Non-Reactive Nonreactive U [facility] - Microbiology an d Antimicrobial susceptibilityon 09-19-2023 Bacteria identified Cx Nom (Bld) No growth at 4 days - FINAL REPORT [facility] Magnesiumon 09-19-2023 Magnesium [Mass/Vol] 2.22 mg/dL 1.60 - 2.40 mg/dL [facility] Magnesium [Mass/Vol] 2.22 mg/dL Normal 1.60-2.40 [facility] Comment on above: Performed By: #### 6 00-7 #### BEVERLEY Poe ([id number]) [facility] ([facility]) [address] [place], [place] [id number] Magnesium [Mass/Vol]on 09-19 Interpretation and review of laboratory results Normal [facility] Natriuretic peptide B [Mass/ Vol]on 09-19-2023 Interpretation and review of laboratory results Abnormal [facility] Natriuretic peptide B (Bld) [Mass/Vol] 154 pg/mL High 0 - 99 pg/mL [facility] Natriuretic peptide B (Bld) [Mass/Vol] 154 pg/mL High 0-99 [facility] Comment on above: Order Comment: <100 pg/mL - Heart failure [id number] pg/mL - Intermediate probability of acute heart [...] By: #### 6 00-7 #### BEVERLEY Poe ([id number]) [facility] ([facility]) [address] [place] [address] 65225 No Panel Informationon 09-19 Radiology Study observation (narrative) [facility] Work Phone: [facility] PT and aPTT panel Coag (PPP) on 09-19-2023 aPTT Coag (PPP) [Time] 32 s [facility] INR Coag (PPP) [Relative time] 1.1 {INR} 0.9 - 1.1 [facility] Interpretation and review of laboratory results Normal [facility] PT Coag (PPP) [Time] 12.3 s [facility] aPTT Coag (PPP) [Time] 32 s Normal 27-38 [facility] Comment on above: Order Comment: The A PTT is no longer used for monitoring Unfractionated Heparin Therapy. For monitoring Heparin Therapy, use the Heparin Assay. Performed By: #### 5 7021-8 #### BEVERLEY Peo ([id number]) [facility] ([facility]) [address] [place] [address] 36917 INR Coag (PPP) [Relative time] 1.1 Normal 0.9-1.1 [facility] Comment on above: Order Comment: The A PTT is no longer used for monitoring Unfractionated Heparin Therapy. For monitoring Heparin Therapy, use the Heparin Assay. Performed By: #### 5 7021-8 #### BEVERLEY Poe ([id number]) [facility] ([facility]) [address] [place] [address] 87098 PT Coag (PPP) [Time] 12.3 s Normal 9.8-12.8 [facility] Comment on above: Order Comment: The A PTT is no longer used for monitoring Unfractionated Heparin Therapy. For monitoring Heparin Therapy, use the Heparin Assay. Performed By: #### 5 7021-8 #### BEVERLEY Poe ([id number]) [facility] ([facility]) [address] [place] [address] 05596 Renal function 2000 panelon 09-19-2023 Albumin BCP dye [Mass/Vol] 2.8 g/dL Low 3.4 - 5.0 g/dL [facility] Anion gap [Moles/Vol] 14 mmol/L 10 - 2 0 mmol/L [facility] Calcium [Mass/Vol] 8.2 mg/dL Low 8.6 - 10. 6 mg/dL [facility] Chloride [Moles/Vol] 101 mmol/L 98 - 10 7 mmol/L [facility] CO2 [Moles/Vol] 35 mmol/L High 21 - 32 mmol/L [facility] Creatinine [Mass/Vol] 0.40 mg/dL Low 0.50 - 1.05 mg/dL [facility] GFR/1.73 sq M.predicted MDRD (S/P/Bld) [Vol rate/Area] - PINF [facility] Glucose [Mass/Vol] 122 mg/dL High 74 - 99 mg/dL [facility] Interpretation and review of laboratory results Abnormal [facility] Phosphate [Mass/Vol] 2.9 mg/dL 2.5 - 4 .9 mg/dL [facility] Potassium [Moles/Vol] 3.9 mmol/L 3.5 - 5.3 mmol/L [facility] Sodium [Moles/Vol] 146 mmol/L High 136 - 145 mmol/L [facility] Urea nitrogen [Mass/Vol] 9 mg/dL 6 - 23 mg/dL [facility] Albumin BCP dye [Mass/Vol] 2.8 g/dL Low 3.4-5.0 [facility] Comment on above: Performed By: #### 6 00-7 #### BEVERLEY Poe ([id number]) [facility] ([facility]) [address] [place] [address] 52187 Anion gap [Moles/Vol] 14 mmol/L Normal 10-20 [facility] Comment on above: Performed By: #### 6 00-7 #### BEVERLEY Poe ([id number]) [facility] ([facility]) [id number] [place] [address] 73935 Calcium [Mass/Vol] 8.2 mg/dL Low 8.6-10.6 [facility] Comment on above: Performed By: #### 6 00-7 #### BEVERLEY Poe ([id number]) [facility] ([facility]) [address] [place] [address] 62773 Chloride [Moles/Vol] 101 mmol/L Normal 98-107 [facility] Comment on above: Performed By: #### 6 00-7 #### BEVERLEY Poe ([id number]) [facility] ([facility]) [address] [place] [address] CO2 [Moles/Vol] 35 mmol/L High 21-32 [facility] Comment on above: Performed By: #### 6 00-7 #### BEVERLEY Poe ([id number]) [facility] ([facility]) [address] [place] [address] Creatinine [Mass/Vol] 0.40 mg/dL Low 0.50-1.05 [facility] Comment on above: Performed By: #### 6 00-7 #### BEVERLEY Poe ([id number]) [facility] ([facility]) [address] [place] [address] GFR/1.73 sq M.predicted MDRD (S/P/Bld) [Vol rate/Area] mL/min/{1.73_m2} Normal >60 [facility] Comment on above: Result Comment: Calc ulations of estimated GFR are performed using the 2020 CKD-EPI Study Refit equation without the race variable for the IDMS-Traceable creatinine methods. https://jasn.asnjournals.org/content//ASN.90189 56240 Performed By: #### 6 00-7 #### BEVERLEY Poe ([id number]) [facility] ([facility]) [address] [place] [address] Glucose [Mass/Vol] 122 mg/dL High 74-99 [facility] Comment on above: Performed By: #### 6 00-7 #### BEVERLEY Poe ([id number]) [facility] ([facility]) [address] [place] [address] Phosphate [Mass/Vol] 2.9 mg/dL Normal 2.5-4.9 [facility] Comment on above: Result Comment: The performance characteristics of phosphorus testing in heparinized plasma have been validated by the individual laboratory site where testing is performed. Testing on heparinized plasma is not approved by the FDA; however, such approval is not necessary. Performed By: #### -7 #### BEVERLEY SCHMOTZER L ([id number]) [facility] ([facility]) [address] [place] [address] Potassium [Moles/Vol] 3.9 mmol/L Normal 3.5-5.3 [facility] Comment on above: Performed By: #### 6 00-7 #### BEVERLEY SCHMOTZER L ([id number]) [facility] ([facility]) [address] [place] [address] Sodium [Moles/Vol] 146 mmol/L High 136-145 [facility] Comment on above: Performed By: #### 6 00-7 #### BEVERLEY SCHMOTZER L ([id number]) [facility] ([facility]) [address] [place] [address]4095 Urea nitrogen [Mass/Vol] 9 mg/dL Normal 6-23 [facility] Comment on above: Performed By: #### 6 00-7 #### BEVERLEY SCHMOTZER L ([id number]) [facility] ([facility]) [address] [place] [address]75[address] US ABDOMEN LIMITED LIVERon 1 11-19-2022 US ABDOMEN LIMITED LIVER Interpreted By: Steven Chacon and Ebai Jerky STUDY: US ABDOMEN LIMITED LIVER; [facility] US ABDOMINAL/PELVIC DUPLEX COMPLETE; 09/19/2023 6:30 pm INDICATION: 72 y/o F with Signs/Symptoms:Throbocyto penia workup; Signs/Symptoms:per doctor request. COMPARISON: None. ACCESSION NUMBER(S): [id number]; [id number] ORDERING CLINICIAN: KANG JULIAN TECHNIQUE: Multiple images of the right upper quadrant were obtained. Gates scale, color Doppler and spectral Doppler waveform analysis was performed. This examination was interpreted at [facility]. FINDINGS: The liver measures 22.6 cm and [...] stated. This study was interpreted at [facility], [place], [place]. MACRO: None Signed by: Steven Chacon 09/20/2023 5:44 AM Dictation workstation: [id number] Normal [facility] Comment on above: Order Comment: Pleas e include portal vein flow velocitys [facility] US ABDOMINAL/PELVIC DUP SRINATH COMPLETEon 09-19-2023 VAS US ABDOMINAL/PELVIC DUPLEX COMPLETE Interpreted By: Steven Chacon, and Kim Sheikh STUDY: US ABDOMEN LIMITED LIVER; [facility] US ABDOMINAL/PELVIC DUPLEX COMPLETE; 09/19/2023 6:30 pm INDICATION: 72 y/o F with Signs/Symptoms:Throbocyto penia workup; Signs/Symptoms:per doctor request. COMPARISON: None. ACCESSION NUMBER(S): [id number]; [id number] ORDERING CLINICIAN: KANG JULIAN TECHNIQUE: Multiple images of the right upper quadrant were obtained. Gates scale, color Doppler and spectral Doppler waveform analysis was performed. This examination was interpreted at [facility]. FINDINGS: The liver measures 22.6 cm and [...] as stated. This study was interpreted at [place], [place]. MACRO: None Signed by: Steven Chacon 09/20/2023 5:44 AM Dictation workstation: [id number] [facility] Comment on above: Order Comment: Pleas e include portal vein flow velocitys XR CHEST 1 VIEWon 09-19-2023 XR CHEST 1 VIEW Interpreted By: Delfin Clemens and [place] Lesley STUDY: XR CHEST 1 VIEW; 09/19/2023 8:46 am INDICATION: Signs/Symptoms:copd on oxygen. COMPARISON: Outside hospital CT chest 03/20/2014 ACCESSION NUMBER(S): [id number] ORDERING CLINICIAN: RIMA APPLE FINDINGS: Single AP [...] stated. This study was interpreted at [facility], [place], [place]. MACRO: None Signed by: Delfin Menezes 09/19/2023 9:36 AM Dictation workstation: [id number] Normal [facility] XR Chest Single viewon 09-19 [facility] MMODAL [facility] MMODAL [facility] Work Phone: Radiology Study observation (narrative) [facility] Work Phone: XR Chest Single viewOrdered By: Delfin Menezes on 09-19-2023 [facility] Work Phone: CBC panel Auto (Bld)on 09-18 Erythrocyte distribution width (RBC) [Ratio] 13.8 % 11.5 - 14.5 % [facility] Hematocrit (Bld) [Volume fraction] 26.9 % Low 36.0 - 46.0 % [facility] Hemoglobin (Bld) [Mass/Vol] 8.0 g/dL Low 12.0 - 16.0 g/dL [facility] Interpretation and review of laboratory results Abnormal [facility] MCH (RBC) [Entitic mass] 30.3 pg 26.0 - 34.0 pg [facility] MCHC (RBC) [Mass/Vol] 29.7 g/dL Low 32.0 - 36.0 g/dL [facility] MCV (RBC) [Entitic vol] 102 fL High 80 - 100 fL [facility] Nucleated RBC/100 WBC (Bld) [Ratio] 0.0 % [facility] Platelets (Bld) [#/Vol] 91 10*3/uL Low [facility] RBC (Bld) [#/Vol] 2.64 10*6/uL [facility] WBC (Bld) [#/Vol] 4.2 10*3/uL [facility] Erythrocyte distribution width (RBC) [Ratio] 13.8 % Normal 11.5-14.5 [facility] Comment on above: Performed By: #### 2 4323-8 #### BEVERLEY Poe ([id number]) [facility] ([facility]) [address] [place] [address] 61361 Hematocrit (Bld) [Volume fraction] 26.9 % Low 36.0-46.0 [facility] Comment on above: Performed By: #### 2 4323-8 #### BEVERLEY Poe ([id number]) [facility] ([facility]) [address] [place] [address] 96988 Hemoglobin (Bld) [Mass/Vol] 8.0 g/dL Low 12.0-16.0 [facility] Comment on above: Performed By: #### 2 4323-8 #### BEVERLEY Poe ([id number]) [facility] ([facility]) [address] [place] [address] 60288 MCH (RBC) [Entitic mass] 30.3 pg Normal 26.0-34.0 [facility] Comment on above: Performed By: #### 2 4323-8 #### BEVERLEY Poe ([id number]) [facility] ([facility]) [address] [place] [address] 01542 MCHC (RBC) [Mass/Vol] 29.7 g/dL Low 32.0-36.0 [facility] Comment on above: Performed By: #### 2 4323-8 #### BEVERLEY Poe ([id number]) [facility] ([facility]) [address] [place] [address] 26445 MCV (RBC) [Entitic vol] 102 fL High 80-100 [facility] Comment on above: Performed By: #### 2 4323-8 #### BEVERLEY Poe ([id number]) [facility] ([facility]) [address] [place] [address] 38418 Nucleated RBC/100 WBC (Bld) [Ratio] 0.0 /100 WBCs Normal 0.0-0.0 [facility] Comment on above: Performed By: #### 2 4323-8 #### BEVERLEY Poe ([id number]) [facility] ([facility]) [address] [place] [address] 89481 Platelets (Bld) [#/Vol] 91 x10*3/uL Low 150-450 [facility] Comment on above: Performed By: #### 2 4323-8 #### BEVERLEY Poe ([id number]) [facility] ([facility]) [address] [place] [address] 89783 RBC (Bld) [#/Vol] 2.64 x10*6/uL Low 4.00-5.20 [facility] Comment on above: Performed By: #### 2 4323-8 #### BEVERLEY Poe ([id number]) [facility] ([facility]) [address] [place] [address] 16101 WBC (Bld) [#/Vol] 4.2 x10*3/uL Low 4.4-11.3 [facility] Comment on above: Performed By: #### 2 4323-8 #### BEVERLEY Poe ([id number]) [facility] ([facility]) [address] [place] [address] 07133 Cancer Ag 125on 09-18-2023 Cancer Ag 125 Qn 22.0 [arb'U]/mL Normal 0.0-30.2 [facility] Comment on above: Order Comment: CA 12 5 testing is performed by chemiluminescent immunoassay using the Locondo.jp. Values obtained with different analytic methods cannot [...] By: #### 3 4532-2 #### BEVERLEY Poe ([id number]) [facility] ([facility]) [address] [place] [address] 38079 Ferritinon 09-18-2023 Ferritin [Mass/Vol] 344 ng/mL High 8 - 150 ng/mL [facility] Ferritin [Mass/Vol] 344 ng/mL High 8-150 [facility] Comment on above: Performed By: #### 5 7021-8 #### BEVERLEY Poe ([id number]) [facility] ([facility]) [address] [place] [address] 19685 Glucose Test strip manual (B ld) [Mass/Vol]on 09-18-2023 Glucose [Mass/Vol] 119 mg/dL High 74 - 99 mg/dL [facility] Interpretation and review of laboratory results Abnormal [facility] Glucose [Mass/Vol] 119 mg/dL High 74-99 [facility] Comment on above: Performed By: #### 5 7021-8 #### BEVERLEY Poe ([id number]) [facility] ([facility]) [address] [place] [address] 87509 Glucose [Mass/Vol] 135 mg/dL High 74 - 99 mg/dL [facility] Interpretation and review of laboratory results Abnormal [facility] Glucose [Mass/Vol] 135 mg/dL High 74-99 [facility] Comment on above: Performed By: #### 2 4323-8 #### BEVERLEY Poe ([id number]) [facility] ([facility]) [address] [place] [address] 21915 Glucose [Mass/Vol] 108 mg/dL High 74 - 99 mg/dL [facility] Interpretation and review of laboratory results Abnormal [facility] Glucose [Mass/Vol] 108 mg/dL High 74-99 [facility] Comment on above: Performed By: #### 2 4323-8 #### BEVERLEY Poe ([id number]) [facility] ([facility]) [address] [place] [address] 24468 HbA1c (Bld) [Mass fraction]o n 09-18-2023 Average glucose Estimated from glycated hemoglobin (Bld) [Mass/Vol] 91 mg/dL Not Established [facility] Average glucose Estimated from glycated hemoglobin (Bld) [Mass/Vol] 91 mg/dL Normal Not Established [facility] Comment on above: Order Comment: Diagn osis of Waaxhgyt-HzrvdsScy-Ghwmjjqp: < or = 5.6%Increased risk for developing diabetes: 5.7-6.4%Diagnostic of diabetes: > or = 6.5%Monitoring of DiabetesAge (y)....................... Therapeutic Goal (%)Adults: >18.........................<7.0Pediatrics: 13-18...................<7.5Pediatrics: 7-12....................<8.0Pediatrics: 0-6..................... 7.5-8.5American Diabetes Association. Diabetes Care 33(S1)Nov 2009 Performed By: #### 2 4323-8 #### BEVERLEY Poe ([id number]) [facility] ([facility]) [address] [place] [id number] Hemoglobin A1con 09-18-2023 HbA1c (Bld) [Mass fraction] 4.8 % see below [facility] Hemoglobin A1c/Hemoglobin.to daphne 09-18-2023 HbA1c (Bld) [Mass fraction] 4.8 % Normal see below [facility] Comment on above: Order Comment: Diagn osis of Asmbrhmb-UlgxrgHst-Gwmenmcn: < or = 5.6%Increased risk for developing diabetes: 5.7-6.4%Diagnostic of diabetes: > or = 6.5%Monitoring of DiabetesAge (y)....................... Therapeutic Goal (%)Adults: >18.........................<7.0Pediatrics: 13-18...................<7.5Pediatrics: 7-12....................<8.0Pediatrics: 0-6..................... 7.5-8.5American Diabetes Association. Diabetes Care 33(S1), Nov 2009 Performed By: #### 2 4323-8 #### BEVERLEY Poe ([id number]) [facility] ([facility]) [address] [place] [address] Hepatic function 2000 panelo n 09-18-2023 Albumin BCP dye [Mass/Vol] 2.7 g/dL Low 3.4 - 5.0 g/dL [facility] ALP [Catalytic activity/Vol] 47 U/L 33 - 136 U/L [facility] ALT With P-5'-P [Catalytic activity/Vol] 7 U/L 7 - 45 U/L [facility] AST With P-5'-P [Catalytic activity/Vol] 10 U/L 9 - 39 U/L [facility] Bilirubin [Mass/Vol] 0.4 mg/dL 0.0 - 1 .2 mg/dL [facility] Bilirubin.direct [Mass/Vol] 0.1 mg/dL 0.0 - 0.3 mg/dL [facility] Interpretation and review of laboratory results Abnormal [facility] Protein [Mass/Vol] 5.7 g/dL Low 6.4 - 8.2 g/dL [facility] Albumin BCP dye [Mass/Vol] 2.7 g/dL Low 3.4-5.0 [facility] Comment on above: Performed By: #### 2 4323-8 #### BEVERLEY Poe ([id number]) [facility] ([facility]) [address] [place] [address] ALP [Catalytic activity/Vol] 47 U/L Normal 33-136 [facility] Comment on above: Performed By: #### 2 4323-8 #### BEVERLEY Poe ([id number]) [facility] ([facility]) [address] [place] [address] 17602 ALT With P-5'-P [Catalytic activity/Vol] 7 U/L Normal 7-45 [facility] Comment on above: Result Comment: Ирина ents treated with Sulfasalazine may generate falsely decreased results for ALT. Performed By: #### 2 4323-8 #### BEVERLEY Poe ([id number]) [facility] ([facility]) [address] [place] [address] AST With P-5'-P [Catalytic activity/Vol] 10 U/L Normal 9-39 [facility] Comment on above: Performed By: #### 2 4323-8 #### BEVERLEY Poe ([id number]) [facility] ([facility]) [address] [place] [address] Bilirubin [Mass/Vol] 0.4 mg/dL Normal 0.0-1.2 [facility] Comment on above: Performed By: #### 2 4323-8 #### BEVERLEY Poe ([id number]) [facility] ([facility]) [address] [place] [address] 55133 Bilirubin.direct [Mass/Vol] 0.1 mg/dL Normal 0.0-0.3 [facility] Comment on above: Performed By: #### 2 4323-8 #### BEVERLEY Poe ([id number]) [facility] ([facility]) [address] [place] [address] 45851 Protein [Mass/Vol] 5.7 g/dL Low 6.4-8.2 [facility] Comment on above: Performed By: #### 2 4323-8 #### BEVERLEY Poe ([id number]) [facility] ([facility]) [address] [place], [place] [phone] Hepatitis B virus surface Ag on 09-18-2023 HBV surface Ag IA Ql Non-Reactive Normal Nonreactive U [facility] Comment on above: Result Comment: Biot in interference may cause falsely decreased results. Patients taking a Biotin dose of up to 5 mg/day should refrain from taking Biotin for 24 hours before sample collection. Providers may contact their local laboratory for further information. Performed By: #### 6 00-7 #### BEVERLEY Poe ([id number]) [facility] ([facility]) [address] [place], [place] [phone] Iron and Iron binding capaci ty panelon 09-18-2023 Iron [Mass/Vol] 33 ug/dL Low 35 - 150 ug/dL [facility] Iron binding capacity [Mass/Vol] 164 ug/dL Low 240 - 445 ug/dL [facility] Iron binding capacity.unsaturated [Mass/Vol] 131 ug/dL 110 - 370 ug/dL [facility] Iron saturation [Mass fraction] 20 % Low 25 - 45 % [facility] Iron [Mass/Vol] 33 ug/dL Low 35-150 [facility] Comment on above: Performed By: #### 5 7021-8 #### BEVERLEY Poe ([id number]) [facility] ([facility]) [address] [place] [address] 28121 Iron binding capacity [Mass/Vol] 164 ug/dL Low 240-445 [facility] Comment on above: Performed By: #### 5 7021-8 #### BEVERLEY Poe ([id number]) [facility] ([facility]) [address] [place] [address] 34086 Iron binding capacity.unsaturated [Mass/Vol] 131 ug/dL Normal 110-370 [facility] Comment on above: Performed By: #### 5 7021-8 #### BEVERLEY Poe ([id number]) [facility] ([facility]) [address] [place] [address] 03984 Iron saturation [Mass fraction] 20 % Low 25-45 [facility] Comment on above: Performed By: #### 5 7021-8 #### BEVERLEY Poe ([id number]) [facility] ([facility]) [address] [place] [address] 64318 Magnesiumon 09-18-2023 Magnesium [Mass/Vol] 1.80 mg/dL 1.60 - 2.40 mg/dL [facility] Magnesium [Mass/Vol] 1.80 mg/dL Normal 1.60-2.40 [facility] Comment on above: Performed By: #### 2 4323-8 #### BEVERLEY Poe ([id number]) [facility] ([facility]) [address] [place] [address] 90487 Magnesium [Mass/Vol]on 09-18 Interpretation and review of laboratory results Normal [facility] Natriuretic peptide B [Mass/ Vol]on 09-18-2023 Interpretation and review of laboratory results Abnormal [facility] Natriuretic peptide B (Bld) [Mass/Vol] 144 pg/mL High 0 - 99 pg/mL [facility] Natriuretic peptide B (Bld) [Mass/Vol] 144 pg/mL High 0-99 [facility] Comment on above: Order Comment: <100 pg/mL - Heart failure [id number] pg/mL - Intermediate probability of acute heart [...] By: #### 5 7021-8 #### BEVERLEY Poe ([id number]) [facility] ([facility]) [address] [place] [address] No Panel Informationon 09-18 Interpretation and review of laboratory results Abnormal [facility] Prealbuminon 09-18-2023 Prealbumin [Mass/Vol] 11.4 mg/dL Low 18.0 - 40.0 mg/dL [facility] Prealbumin [Mass/Vol] 11.4 mg/dL Low 18.0-40.0 [facility] Comment on above: Performed By: #### 5 7021-8 #### BEVERLEY Poe ([id number]) [facility] ([facility]) [address] [place] [address] Prealbumin [Mass/Vol]on Interpretation and review of laboratory results Abnormal [facility] Renal function 2000 panelon 09-18-2023 Albumin BCP dye [Mass/Vol] 2.8 g/dL Low 3.4 - 5.0 g/dL [facility] Anion gap [Moles/Vol] 12 mmol/L 10 - 2 0 mmol/L [facility] Calcium [Mass/Vol] 8.6 mg/dL 8.6 - 10. 6 mg/dL [facility] Chloride [Moles/Vol] 99 mmol/L 98 - 10 7 mmol/L [facility] CO2 [Moles/Vol] 39 mmol/L High 21 - 32 mmol/L [facility] Creatinine [Mass/Vol] 0.37 mg/dL Low 0.50 - 1.05 mg/dL [facility] GFR/1.73 sq M.predicted MDRD (S/P/Bld) [Vol rate/Area] - PINF [facility] Glucose [Mass/Vol] 99 mg/dL 74 - 99 mg/dL [facility] Interpretation and review of laboratory results Abnormal [facility] Phosphate [Mass/Vol] 2.8 mg/dL 2.5 - 4 .9 mg/dL [facility] Potassium [Moles/Vol] 3.6 mmol/L 3.5 - 5.3 mmol/L [facility] Sodium [Moles/Vol] 146 mmol/L High 136 - 145 mmol/L [facility] Urea nitrogen [Mass/Vol] 11 mg/dL 6 - 23 mg/dL [facility] Albumin BCP dye [Mass/Vol] 2.8 g/dL Low 3.4-5.0 [facility] Comment on above: Performed By: #### 2 4323-8 #### BEVERLEY Poe ([id number]) [facility] ([facility]) [address] [place] [address] 95238 Anion gap [Moles/Vol] 12 mmol/L Normal 10-20 [facility] Comment on above: Performed By: #### 2 4323-8 #### BEVERLEY Poe ([id number]) [facility] ([facility]) [address] [place] [address] 67909 Calcium [Mass/Vol] 8.6 mg/dL Normal 8.6-10.6 [facility] Comment on above: Performed By: #### 2 4323-8 #### BEVERLEY DODD L ([id number]) [facility] ([facility]) [address] [place] [address] 00619 Chloride [Moles/Vol] 99 mmol/L Normal 98-107 [facility] Comment on above: Performed By: #### 2 4323-8 #### BEVERLEY Poe ([id number]) [facility] ([facility]) [address] [place] [address] 71062 CO2 [Moles/Vol] 39 mmol/L High 21-32 [facility] Comment on above: Performed By: #### 2 4323-8 #### BEVERLEY Poe ([id number]) [facility] ([facility]) [address] [place] [address] Creatinine [Mass/Vol] 0.37 mg/dL Low 0.50-1.05 [facility] Comment on above: Performed By: #### 2 4323-8 #### BEVERLEY Poe ([id number]) [facility] ([facility]) [address] [place] [address] GFR/1.73 sq M.predicted MDRD (S/P/Bld) [Vol rate/Area] mL/min/{1.73_m2} Normal >60 [facility] Comment on above: Result Comment: Calc ulations of estimated GFR are performed using the 2020 CKD-EPI Study Refit equation without the race variable for the IDMS-Traceable creatinine methods. https://jasn.asnjournals.org/content//ASN.53500 60805 Performed By: #### 2 4323-8 #### BEVERLEY Poe ([id number]) [facility] ([facility]) [address] [place] [address] Glucose [Mass/Vol] 99 mg/dL Normal 74-99 [facility] Comment on above: Performed By: #### 2 4323-8 #### BEVERLEY Poe ([id number]) [facility] ([facility]) [address] [place] [address] Phosphate [Mass/Vol] 2.8 mg/dL Normal 2.5-4.9 [facility] Comment on above: Result Comment: The performance characteristics of phosphorus testing in heparinized plasma have been validated by the individual laboratory site where testing is performed. Testing on heparinized plasma is not approved by the FDA; however, such approval is not necessary. Performed By: #### 2 4323-8 #### BEVERLEY Poe ([id number]) [facility] ([facility]) [address] [place] [address] Potassium [Moles/Vol] 3.6 mmol/L Normal 3.5-5.3 [facility] Comment on above: Performed By: #### 2 4323-8 #### BEVERLEY Poe ([id number]) [facility] ([facility]) [address] [place] [address] Sodium [Moles/Vol] 146 mmol/L High 136-145 [facility] Comment on above: Performed By: #### 2 4323-8 #### BEVERLEY Poe ([id number]) [facility] ([facility]) [address] [place] [address] Urea nitrogen [Mass/Vol] 11 mg/dL Normal 6-23 [facility] Comment on above: Performed By: #### 2 4323-8 #### BEVERLEY Poe ([id number]) [facility] ([facility]) [address] [place] [address] 55050 CBC panel Auto (Bld)on 09-17 Erythrocyte distribution width (RBC) [Ratio] 13.8 % 11.5 - 14.5 % [facility] Hematocrit (Bld) [Volume fraction] 27.0 % Low 36.0 - 46.0 % [facility] Hemoglobin (Bld) [Mass/Vol] 8.2 g/dL Low 12.0 - 16.0 g/dL [facility] Interpretation and review of laboratory results Abnormal [facility] MCH (RBC) [Entitic mass] 30.6 pg 26.0 - 34.0 pg [facility] MCHC (RBC) [Mass/Vol] 30.4 g/dL Low 32.0 - 36.0 g/dL [facility] MCV (RBC) [Entitic vol] 101 fL High 80 - 100 fL [facility] Nucleated RBC/100 WBC (Bld) [Ratio] 0.0 % [facility] Platelets (Bld) [#/Vol] 88 10*3/uL Low [facility] RBC (Bld) [#/Vol] 2.68 10*6/uL [facility] WBC (Bld) [#/Vol] 3.7 10*3/uL [facility] Erythrocyte distribution width (RBC) [Ratio] 13.8 % Normal 11.5-14.5 [facility] Comment on above: Performed By: #### 1 9123-9 #### BEVERLEY Poe ([id number]) [facility] ([facility]) [address] [place] [address] 49419 Hematocrit (Bld) [Volume fraction] 27.0 % Low 36.0-46.0 [facility] Comment on above: Performed By: #### 1 9123-9 #### BEVERLEY Poe ([id number]) [facility] ([facility]) [address] [place] [address] 36668 Hemoglobin (Bld) [Mass/Vol] 8.2 g/dL Low 12.0-16.0 [facility] [facility] Comment on above: Performed By: #### 1 9123-9 #### BEVERLEY Poe ([id number]) [facility] ([facility]) [address] [place] [address] 22323 MCH (RBC) [Entitic mass] 30.6 pg Normal 26.0-34.0 [facility] Comment on above: Performed By: #### 1 9123-9 #### BEVERLEY Poe ([id number]) [facility] ([facility]) [address] [place] [address] 26598 MCHC (RBC) [Mass/Vol] 30.4 g/dL Low 32.0-36.0 [facility] Comment on above: Performed By: #### 1 9123-9 #### BEVERLEY Poe ([id number]) [facility] ([facility]) [address] [place] [address] 48542 MCV (RBC) [Entitic vol] 101 fL High 80-100 [facility] Comment on above: Performed By: #### 1 9123-9 #### BEVERLEY Poe ([id number]) [facility] ([facility]) [address] [place] [address] 18341 Nucleated RBC/100 WBC (Bld) [Ratio] 0.0 /100 WBCs Normal 0.0-0.0 [facility] Comment on above: Performed By: #### 1 9123-9 #### BEVERLEY Poe ([id number]) [facility] ([facility]) [address] [place] [address] 49546 Platelets (Bld) [#/Vol] 88 x10*3/uL Low 150-450 [facility] Comment on above: Performed By: #### 1 9123-9 #### BEVERLEY Poe ([id number]) [facility] ([facility]) [id number] [place] [address] 45903 RBC (Bld) [#/Vol] 2.68 x10*6/uL Low 4.00-5.20 [facility] Comment on above: Performed By: #### 1 9123-9 #### BEVERLEY Poe ([id number]) [facility] ([facility]) [address] [place] [address] 25304 WBC (Bld) [#/Vol] 3.7 x10*3/uL Low 4.4-11.3 [facility] Comment on above: Performed By: #### 1 9123-9 #### BEVERLEY Poe ([id number]) [facility] ([facility]) [address] [place] [address] 18206 Glucose Test strip manual (B ld) [Mass/Vol]on 09-17-2023 Glucose [Mass/Vol] 142 mg/dL High 74 - 99 mg/dL [facility] Interpretation and review of laboratory results Abnormal [facility] Glucose [Mass/Vol] 142 mg/dL High 74-99 [facility] Comment on above: Performed By: #### 2 4323-8 #### BEVERLEY Poe ([id number]) [facility] ([facility]) [address] [place] [address] 08162 Glucose [Mass/Vol] 117 mg/dL High 74 - 99 mg/dL [facility] Interpretation and review of laboratory results Abnormal [facility] Glucose [Mass/Vol] 117 mg/dL High 74-99 [facility] Comment on above: Performed By: #### 2 4323-8 #### BEVERLEY Poe ([id number]) [facility] ([facility]) [address] [place] [address] 07776 Glucose [Mass/Vol] 138 mg/dL High 74 - 99 mg/dL [facility] Interpretation and review of laboratory results Abnormal [facility] Glucose [Mass/Vol] 138 mg/dL High 74-99 [facility] Comment on above: Performed By: #### 2 4323-8 #### BEVERLEY Poe ([id number]) [facility] ([facility]) [address] [place] [address] 75607 Glucose [Mass/Vol] 96 mg/dL 74 - 99 mg/dL [facility] Interpretation and review of laboratory results Normal [facility] Glucose [Mass/Vol] 96 mg/dL Normal 74-99 [facility] Comment on above: Performed By: #### 1 9123-9 #### BEVERLEY Poe ([id number]) [facility] ([facility]) [address] [place] [address] 64555 Magnesiumon 09-17-2023 Magnesium [Mass/Vol] 2.00 mg/dL 1.60 - 2.40 mg/dL [facility] Magnesium [Mass/Vol] 2.00 mg/dL Normal 1.60-2.40 [facility] Comment on above: Performed By: #### 1 9123-9 #### BEVERLEY Poe ([id number]) [facility] ([facility]) [address] [place] [address] 83775 Magnesium [Mass/Vol]on 09-17 Interpretation and review of laboratory results Normal [facility] No Panel Informationon 09-17 [facility] Renal function 2000 panelon 09-17-2023 Albumin BCP dye [Mass/Vol] 2.9 g/dL Low 3.4 - 5.0 g/dL [facility] Anion gap [Moles/Vol] 11 mmol/L 10 - 2 0 mmol/L [facility] Calcium [Mass/Vol] 8.7 mg/dL 8.6 - 10. 6 mg/dL [facility] Chloride [Moles/Vol] 100 mmol/L 98 - 10 7 mmol/L [facility] CO2 [Moles/Vol] 40 mmol/L Critically high 21 - 32 mmol/L [facility] Creatinine [Mass/Vol] 0.32 mg/dL Low 0.50 - 1.05 mg/dL [facility] GFR/1.73 sq M.predicted MDRD (S/P/Bld) [Vol rate/Area] - PINF [facility] Glucose [Mass/Vol] 95 mg/dL 74 - 99 mg/dL [facility] Interpretation and review of laboratory results Abnormal [facility] Phosphate [Mass/Vol] 3.8 mg/dL 2.5 - 4 .9 mg/dL [facility] Potassium [Moles/Vol] 3.8 mmol/L 3.5 - 5.3 mmol/L [facility] Sodium [Moles/Vol] 147 mmol/L High 136 - 145 mmol/L [facility] Urea nitrogen [Mass/Vol] 10 mg/dL 6 - 23 mg/dL [facility] Albumin BCP dye [Mass/Vol] 2.9 g/dL Low 3.4-5.0 [facility] Comment on above: Performed By: #### 1 9123-9 #### BEVERLEY Poe ([id number]) [facility] ([facility]) [id number] [place] [address] 87235 Anion gap [Moles/Vol] 11 mmol/L Normal 10-20 [facility] Comment on above: Performed By: #### 1 9123-9 #### BEVERLEY Peo ([id number]) [facility] ([facility]) [address] [place] [address] Calcium [Mass/Vol] 8.7 mg/dL Normal 8.6-10.6 [facility] Comment on above: Performed By: #### 1 9123-9 #### BEVERLEY Poe ([id number]) [facility] ([facility]) [address] [place] [address] Chloride [Moles/Vol] 100 mmol/L Normal 98-107 [facility] Comment on above: Performed By: #### 1 9123-9 #### BEVERLEY Poe ([id number]) [facility] ([facility]) [address] [place] [address] 96062 CO2 [Moles/Vol] 40 mmol/L Critically high 21-32 [facility] Comment on above: Performed By: #### 1 9123-9 #### BEVERLEY Poe ([id number]) [facility] ([facility]) [address] [place] [address] 76772 Creatinine [Mass/Vol] 0.32 mg/dL Low 0.50-1.05 [facility] Comment on above: Performed By: #### 1 9123-9 #### BEVERLEY Poe ([id number]) [facility] ([facility]) [address] [place] [address] 34727 GFR/1.73 sq M.predicted MDRD (S/P/Bld) [Vol rate/Area] mL/min/{1.73_m2} Normal >60 [facility] Comment on above: Result Comment: Calc ulations of estimated GFR are performed using the 2020 CKD-EPI Study Refit equation without the race variable for the IDMS-Traceable creatinine methods. https://jasn.asnjournals.org/content/early//ASN.32112 97439 Performed By: #### 1 9123-9 #### BEVERLEY Poe ([id number]) [facility] ([facility]) [address] [place] [address] 71475 Glucose [Mass/Vol] 95 mg/dL Normal 74-99 [facility] Comment on above: Performed By: #### 1 9123-9 #### BEVERLEY Poe ([id number]) [facility] ([facility]) [address] [place] [address] 38684 Phosphate [Mass/Vol] 3.8 mg/dL Normal 2.5-4.9 [facility] Comment on above: Result Comment: The performance characteristics of phosphorus testing in heparinized plasma have been validated by the individual laboratory site where testing is performed. Testing on heparinized plasma is not approved by the FDA; however, such approval is not necessary. Performed By: #### 1 9123-9 #### BEVERLEY Poe ([id number]) [facility] ([facility]) [address] [place] [address] 98034 Potassium [Moles/Vol] 3.8 mmol/L Normal 3.5-5.3 [facility] Comment on above: Performed By: #### 1 9123-9 #### BEVERLEY Poe ([id number]) [facility] ([facility]) [address] [place] [address] 95954 Sodium [Moles/Vol] 147 mmol/L High 136-145 [facility] Comment on above: Performed By: #### 1 9123-9 #### BEVERLEY Poe ([id number]) [facility] ([facility]) [address] [place] [address] 17541 Urea nitrogen [Mass/Vol] 10 mg/dL Normal 6-23 [facility] Comment on above: Performed By: #### 1 9123-9 #### BEVERLEY Poe ([id number]) [facility] ([facility]) [address] [place] [address] 82361 Blood type and Indirect anti body screen panel (Bld)on 09-16-2023 ABO group Nom (Bld) O [facility] Blood group antibody screen Ql Negative [facility] D Ag Ql (Bld) Positive [facility] CBC panel Auto (Bld)on 09-16 Erythrocyte distribution width (RBC) [Ratio] 13.9 % 11.5 - 14.5 % [facility] Hematocrit (Bld) [Volume fraction] 29.3 % Low 36.0 - 46.0 % [facility] Hemoglobin (Bld) [Mass/Vol] 8.5 g/dL Low 12.0 - 16.0 g/dL [facility] Interpretation and review of laboratory results Abnormal [facility] MCH (RBC) [Entitic mass] 29.9 pg 26.0 - 34.0 pg [facility] MCHC (RBC) [Mass/Vol] 29.0 g/dL Low 32.0 - 36.0 g/dL [facility] MCV (RBC) [Entitic vol] 103 fL High 80 - 100 fL [facility] Nucleated RBC/100 WBC (Bld) [Ratio] 0.0 % [facility] Platelets (Bld) [#/Vol] 93 10*3/uL Low [facility] RBC (Bld) [#/Vol] 2.84 10*6/uL [facility] WBC (Bld) [#/Vol] 3.4 10*3/uL [facility] Erythrocyte distribution width (RBC) [Ratio] 13.9 % Normal 11.5-14.5 [facility] Comment on above: Performed By: #### 1 9123-9 #### BEVERLEY Poe ([id number]) [facility] ([facility]) [address] [place] [address] 13571 Hematocrit (Bld) [Volume fraction] 29.3 % Low 36.0-46.0 [facility] Comment on above: Performed By: #### 1 9123-9 #### BEVERLEY Poe ([id number]) [facility] ([facility]) [address] [place] [address] 19036 Hemoglobin (Bld) [Mass/Vol] 8.5 g/dL Low 12.0-16.0 [facility] Comment on above: Performed By: #### 1 9123-9 #### BEVERLEY Poe ([id number]) [facility] ([facility]) [address] [place] [address] 24432 MCH (RBC) [Entitic mass] 29.9 pg Normal 26.0-34.0 [facility] Comment on above: Performed By: #### 1 9123-9 #### BEVERLEY Poe ([id number]) [facility] ([facility]) [address] [place] [address] 79792 MCHC (RBC) [Mass/Vol] 29.0 g/dL Low 32.0-36.0 [facility] Comment on above: Performed By: #### 1 9123-9 #### BEVERLEY Poe ([id number]) [facility] ([facility]) [address] [place] [address] 01860 MCV (RBC) [Entitic vol] 103 fL High 80-100 [facility] Comment on above: Performed By: #### 1 9123-9 #### BEVERLEY Poe ([id number]) [facility] ([facility]) [address] [place] [address] 50412 Nucleated RBC/100 WBC (Bld) [Ratio] 0.0 /100 WBCs Normal 0.0-0.0 [facility] Comment on above: Performed By: #### 1 9123-9 #### BEVERLEY Poe ([id number]) [facility] ([facility]) [address] [place] [address] 63525 Platelets (Bld) [#/Vol] 93 x10*3/uL Low 150-450 [facility] Comment on above: Performed By: #### 1 9123-9 #### BEVERLEY Poe ([id number]) [facility] ([facility]) [address] [place] [address] 67590 RBC (Bld) [#/Vol] 2.84 x10*6/uL Low 4.00-5.20 [facility] Comment on above: Performed By: #### 1 9123-9 #### BEVERLEY Poe ([id number]) [facility] ([facility]) [address] [place] [address] 27105 WBC (Bld) [#/Vol] 3.4 x10*3/uL Low 4.4-11.3 [facility] Comment on above: Performed By: #### 1 9123-9 #### BEVERLEY Poe ([id number]) [facility] ([facility]) [address] [place] [address] 60018 Carcinoembryonic Agon 2022 Carcinoembryonic Ag [Mass/Vol] ng/mL Normal [facility] Comment on above: Order Comment: REF V ALUES NONSMOKERS 0-2.5 SMOKERS 0-5.0CEA testing is performed by chemiluminescent immunoassay using the Siem[employer]. Values obtained with different analytic methods cannot [...] By: #### 1 9123-9 #### BEVERLEY Poe ([id number]) [facility] ([facility]) [address] [place] [address] 56204 Carcinoembryonic Ag [Mass/Vo l]on 09-16-2023 [facility] Carcinoembryonic Antigenon 1 11-16-2022 Carcinoembryonic Ag [Mass/Vol] ug/L ug/L [facility] Glucose Test strip manual (B ld) [Mass/Vol]on 09-16-2023 Glucose [Mass/Vol] 96 mg/dL 74 - 99 mg/dL [facility] Interpretation and review of laboratory results Normal [facility] Glucose [Mass/Vol] 96 mg/dL Normal 74-99 [facility] Comment on above: Performed By: #### 1 9123-9 #### BEVERLEY Poe ([id number]) [facility] ([facility]) [address] [place] [address] 30401 Glucose [Mass/Vol] 94 mg/dL 74 - 99 mg/dL [facility] Interpretation and review of laboratory results Normal [facility] Glucose [Mass/Vol] 94 mg/dL Normal 74-99 [facility] Comment on above: Performed By: #### 1 9123-9 #### BEVERLEY Poe ([id number]) [facility] ([facility]) [address] [place] [address] 01472 Glucose [Mass/Vol] 98 mg/dL 74 - 99 mg/dL [facility] Interpretation and review of laboratory results Normal [facility] Glucose [Mass/Vol] 98 mg/dL Normal 74-99 [facility] Comment on above: Performed By: #### 2 341-6 #### BEVERLEY Poe ([id number]) [facility] ([facility]) [address] [place] [address] 16050 Glucose [Mass/Vol] 92 mg/dL 74 - 99 mg/dL [facility] Interpretation and review of laboratory results Normal [facility] Glucose [Mass/Vol] 92 mg/dL Normal 74-99 [facility] Comment on above: Performed By: #### 2 341-6 #### BEVERLEY Poe ([id number]) [facility] ([facility]) [address] [place] [address] 70591 Glucose [Mass/Vol] 88 mg/dL 74 - 99 mg/dL [facility] Interpretation and review of laboratory results Normal [facility] Glucose [Mass/Vol] 88 mg/dL Normal 74-99 [facility] Comment on above: Performed By: #### 2 341-6 #### BEVERLEY Poe ([id number]) [facility] ([facility]) [address] [place] [address] 73965 Magnesiumon 09-16-2023 Magnesium [Mass/Vol] 2.04 mg/dL 1.60 - 2.40 mg/dL [facility] Magnesium [Mass/Vol] 2.04 mg/dL Normal 1.60-2.40 [facility] Comment on above: Performed By: #### 1 9123-9 #### BEVERLEY Poe ([id number]) [facility] ([facility]) [address] [place] [address] 84566 Magnesium [Mass/Vol]on 09-16 Interpretation and review of laboratory results Normal [facility] No Panel Informationon 09-16 [facility] Renal function 2000 panelon 09-16-2023 Albumin BCP dye [Mass/Vol] 3.0 g/dL Low 3.4 - 5.0 g/dL [facility] Anion gap [Moles/Vol] 10 mmol/L 10 - 2 0 mmol/L [facility] Calcium [Mass/Vol] 8.8 mg/dL 8.6 - 10. 6 mg/dL [facility] Chloride [Moles/Vol] 99 mmol/L 98 - 10 7 mmol/L [facility] CO2 [Moles/Vol] 40 mmol/L Critically high 21 - 32 mmol/L [facility] Creatinine [Mass/Vol] 0.40 mg/dL Low 0.50 - 1.05 mg/dL [facility] GFR/1.73 sq M.predicted MDRD (S/P/Bld) [Vol rate/Area] - PINF [facility] Glucose [Mass/Vol] 88 mg/dL 74 - 99 mg/dL [facility] Interpretation and review of laboratory results Abnormal [facility] Phosphate [Mass/Vol] 3.1 mg/dL 2.5 - 4 .9 mg/dL [facility] Potassium [Moles/Vol] 3.7 mmol/L 3.5 - 5.3 mmol/L [facility] Sodium [Moles/Vol] 145 mmol/L 136 - 145 mmol/L [facility] Urea nitrogen [Mass/Vol] 12 mg/dL 6 - 23 mg/dL [facility] Albumin BCP dye [Mass/Vol] 3.0 g/dL Low 3.4-5.0 [facility] Comment on above: Performed By: #### 1 9123-9 #### BEVERLEY Poe ([id number]) [facility] ([facility]) [address] [place] [address] 78687 Anion gap [Moles/Vol] 10 mmol/L Normal 10-20 [facility] Comment on above: Performed By: #### 1 9123-9 #### BEVERLEY Poe ([id number]) [facility] ([facility]) [address] [place] [address] 66910 Calcium [Mass/Vol] 8.8 mg/dL Normal 8.6-10.6 [facility] Comment on above: Performed By: #### 1 9123-9 #### BEVERLEY Poe ([id number]) [facility] ([facility]) [address] [place] [address] Chloride [Moles/Vol] 99 mmol/L Normal 98-107 [facility] Comment on above: Performed By: #### 1 9123-9 #### BEVERLEY DODD L ([id number]) [facility] ([facility]) [address] [place] [address] CO2 [Moles/Vol] 40 mmol/L Critically high 21-32 [facility] Comment on above: Performed By: #### 1 9123-9 #### BEVERLEY Poe ([id number]) [facility] ([facility]) [address] [place] [address] Creatinine [Mass/Vol] 0.40 mg/dL Low 0.50-1.05 [facility] Comment on above: Performed By: #### 1 9123-9 #### BEVERLEY Poe ([id number]) [facility] ([facility]) [address] [place] [address] GFR/1.73 sq M.predicted MDRD (S/P/Bld) [Vol rate/Area] mL/min/{1.73_m2} Normal >60 [facility] Comment on above: Result Comment: Calc ulations of estimated GFR are performed using the 2020 CKD-EPI Study Refit equation without the race variable for the IDMS-Traceable creatinine methods. https://jasn.asnjournals.org/content//ASN.43162 66574 Performed By: #### 1 9123-9 #### BEVERLEY Poe ([id number]) [facility] ([facility]) [address] [place] [address] Glucose [Mass/Vol] 88 mg/dL Normal 74-99 [facility] Comment on above: Performed By: #### 1 9123-9 #### BEVERLEY Poe ([id number]) [facility] ([facility]) [address] [place] [address] Phosphate [Mass/Vol] 3.1 mg/dL Normal 2.5-4.9 [facility] Comment on above: Result Comment: The performance characteristics of phosphorus testing in heparinized plasma have been validated by the individual laboratory site where testing is performed. Testing on heparinized plasma is not approved by the FDA; however, such approval is not necessary. Performed By: #### 1 9123-9 #### BEVERLEY Poe ([id number]) [facility] ([facility]) [address] [place] [address] 49731 Potassium [Moles/Vol] 3.7 mmol/L Normal 3.5-5.3 [facility] Comment on above: Performed By: #### 1 9123-9 #### BEVERLEY Poe ([id number]) [facility] ([facility]) [address] [place] [address] 28478 Sodium [Moles/Vol] 145 mmol/L Normal 136-145 [facility] Comment on above: Performed By: #### 1 9123-9 #### BEVERLEY Poe ([id number]) [facility] ([facility]) [address] [place] [address] 38351 Urea nitrogen [Mass/Vol] 12 mg/dL Normal 6-23 [facility] Comment on above: Performed By: #### 1 9123-9 #### BEVERLEY Poe ([id number]) [facility] ([facility]) [address] [place] [address] 59876 Bacteria identifiedon 2022 Bacteria identified Cx Nom (Bld) Test: Blood Culture Specimen Source: Peripheral Venipuncture Specimen Type: Blood culture Specimen Date: 09/15/2023 9:24 PM Result Date: 09/19/2023 10:01 PM Result Status: Final result Abnormal: No Resulting Lab: [facility] [address] [place] [address] 53693 CULTURE No growth at 4 days - FINAL REPORT [facility] Comment on above: Performed By: #### 6 00-7 #### BEVERLEY Poe ([id number]) [facility] ([facility]) [id number] [place] [address] 04283 Basophil percentageOrdered B y: Calvin Hester on 09-15-2023 Lactate [Moles/Vol] 0.6 mmol/L 0.4-2.0 [facility] Basophil percentage 10-25 SEEN /hpf 0-5 [facility] Bilirubin Test strip Ql (U)O rdered By: Calvin Hester on 09-15-2023 Bilirubin Ql (U) Negative Negative [facility] Blood type and Indirect anti body screen panel (Bld)on 09-15-2023 ABO group Nom (Bld) O Normal [facility] Comment on above: Performed By: #### 3 4532-2 #### BEVERLEY Poe ([id number]) [facility] ([facility]) [address] [place], [place] [phone] Blood group antibody screen Ql Negative [facility] Comment on above: Performed By: #### 3 4532-2 #### BEVERLEY Poe ([id number]) [facility] ([facility]) [address] [place], [place] [address] D Ag Ql (Bld) Positive [facility] Comment on above: Result Comment: 2nd ABO test required. Order and Collect VERAB Performed By: #### 3 4532-2 #### BEVERLEY Poe ([id number]) [facility] ([facility]) [address] [place] [address] 47013 CBC W Auto Differential pane l (Bld)on 09-15-2023 Basophils (Bld) [#/Vol] 0.01 10*3/uL [facility] Basophils/100 WBC (Bld) 0.3 % 0.0 - 2.0 % [facility] Eosinophils (Bld) [#/Vol] 0.06 10*3/uL [facility] Eosinophils/100 WBC (Bld) 1.7 % 0.0 - 6.0 % [facility] Erythrocyte distribution width (RBC) [Ratio] 13.9 % 11.5 - 14.5 % [facility] Hematocrit (Bld) [Volume fraction] 27.8 % Low 36.0 - 46.0 % [facility] Hemoglobin (Bld) [Mass/Vol] 7.9 g/dL Low 12.0 - 16.0 g/dL [facility] Immature granulocytes (Bld) [#/Vol] 0.02 10*3/uL [facility] Immature granulocytes/100 WBC (Bld) 0.6 % 0.0 - 0.9 % [facility] Interpretation and review of laboratory results Abnormal [facility] Lymphocytes (Bld) [#/Vol] 0.67 10*3/uL Low [facility] Lymphocytes/100 WBC (Bld) 19.2 % 13.0 - 44.0 % [facility] MCH (RBC) [Entitic mass] 29.8 pg 26.0 - 34.0 pg [facility] MCHC (RBC) [Mass/Vol] 28.4 g/dL Low 32.0 - 36.0 g/dL [facility] MCV (RBC) [Entitic vol] 105 fL High 80 - 100 fL [facility] Monocytes (Bld) [#/Vol] 0.23 10*3/uL [facility] Monocytes/100 WBC (Bld) 6.6 % 2.0 - 10.0 % [facility] Neutrophils (Bld) [#/Vol] 2.50 10*3/uL [facility] Neutrophils/100 WBC (Bld) 71.6 % 40.0 - 80.0 % [facility] Nucleated RBC/100 WBC (Bld) [Ratio] 0.0 % [facility] Platelets (Bld) [#/Vol] 123 10*3/uL Low [facility] RBC (Bld) [#/Vol] 2.65 10*6/uL [facility] WBC (Bld) [#/Vol] 3.5 10*3/uL [facility] Basophils (Bld) [#/Vol] 0.01 x10*3/uL Normal 0.00-0.10 [facility] Comment on above: Performed By: #### 5 7021-8 #### BEVERLEY Poe ([id number]) [facility] ([facility]) [address] [place] [address] 94939 Basophils/100 WBC (Bld) 0.3 % Normal 0.0-2.0 [facility] Comment on above: Performed By: #### 5 7021-8 #### BEVERLEY Poe ([id number]) [facility] ([facility]) [address] [place] [address] 22954 Eosinophils (Bld) [#/Vol] 0.06 x10*3/uL Normal 0.00-0.40 [facility] Comment on above: Performed By: #### 5 7021-8 #### BEVERLEY Poe ([id number]) [facility] [facility] ([facility]) [address] [place] [address] 79103 Eosinophils/100 WBC (Bld) 1.7 % Normal 0.0-6.0 [facility] Comment on above: Performed By: #### 5 7021-8 #### BEVERLEY Poe ([id number]) [facility] ([facility]) [address] [place] [address] 62047 Erythrocyte distribution width (RBC) [Ratio] 13.9 % Normal 11.5-14.5 [facility] Comment on above: Performed By: #### 5 7021-8 #### BEVERLEY Poe ([id number]) [facility] ([facility]) [address] [place] [address] 00250 Hematocrit (Bld) [Volume fraction] 27.8 % Low 36.0-46.0 [facility] Comment on above: Performed By: #### 5 7021-8 #### BEVERLEY Poe ([id number]) [facility] ([facility]) [address] [place] [address] 93295 Hemoglobin (Bld) [Mass/Vol] 7.9 g/dL Low 12.0-16.0 [facility] Comment on above: Performed By: #### 5 7021-8 #### BEVERLEY Poe ([id number]) [facility] ([facility]) [address] [place] [address] 38475 Immature granulocytes (Bld) [#/Vol] 0.02 x10*3/uL Normal 0.00-0.50 [facility] Comment on above: Performed By: #### 5 7021-8 #### BEVERLEY Poe ([id number]) [facility] ([facility]) [address] [place] [address] 18071 Immature granulocytes/100 WBC (Bld) 0.6 % Normal 0.0-0.9 [facility] Comment on above: Result Comment: Sharda ture Granulocyte Count (IG) includes promyelocytes, myelocytes and metamyelocytes but does not include bands. Percent differential counts (%) should be interpreted in the context of the absolute cell counts (cells/UL). Performed By: #### 5 7021-8 #### BEVERLEY Poe ([id number]) [facility] ([facility]) [address] [place] [address] 19568 Lymphocytes (Bld) [#/Vol] 0.67 x10*3/uL Low 0.80-3.00 [facility] Comment on above: Performed By: #### 5 7021-8 #### BEVERLEY Poe ([id number]) [facility] ([facility]) [address] [place] [address] 41280 Lymphocytes/100 WBC (Bld) 19.2 % Normal 13.0-44.0 [facility] Comment on above: Performed By: #### 5 7021-8 #### BEVERLEY Poe ([id number]) [facility] ([facility]) [address] [place] [address] 12900 MCH (RBC) [Entitic mass] 29.8 pg Normal 26.0-34.0 [facility] Comment on above: Performed By: #### 5 7021-8 #### BEVERLEY Poe ([id number]) [facility] ([facility]) [address] [place] [address] 54180 MCHC (RBC) [Mass/Vol] 28.4 g/dL Low 32.0-36.0 [facility] Comment on above: Performed By: #### 5 7021-8 #### BEVERLEY Poe ([id number]) [facility] ([facility]) [address] [place] [address] MCV (RBC) [Entitic vol] 105 fL High 80-100 [facility] Comment on above: Performed By: #### 5 7021-8 #### BEVERLEY Poe ([id number]) [facility] ([facility]) [id number] [place] [address] 54533 Monocytes (Bld) [#/Vol] 0.23 x10*3/uL Normal 0.05-0.80 [facility] Comment on above: Performed By: #### 5 7021-8 #### BEVERLEY Poe ([id number]) [facility] ([facility]) [address] [place] [address] 03712 Monocytes/100 WBC (Bld) 6.6 % Normal 2.0-10.0 [facility] Comment on above: Performed By: #### 5 7021-8 #### BEVERLEY Poe ([id number]) [facility] ([facility]) [address] [place] [address] 54554 Neutrophils (Bld) [#/Vol] 2.50 x10*3/uL Normal 1.60-5.50 [facility] Comment on above: Result Comment: Perc ent differential counts (%) should be interpreted in the context of the absolute cell counts (cells/uL). Performed By: #### 5 7021-8 #### BEVERLEY Poe ([id number]) [facility] ([facility]) [id number] [place] [address] 16219 Neutrophils/100 WBC (Bld) 71.6 % Normal 40.0-80.0 [facility] Comment on above: Performed By: #### 5 7021-8 #### BEVERLEY Poe ([id number]) [facility] ([facility]) [address] [place] [address] Nucleated RBC/100 WBC (Bld) [Ratio] 0.0 /100 WBCs Normal 0.0-0.0 [facility] Comment on above: Performed By: #### 5 7021-8 #### BEVERLEY Poe ([id number]) [facility]) [address] [place] [address] Platelets (Bld) [#/Vol] 123 x10*3/uL Low 150-450 [facility] Comment on above: Performed By: #### 5 7021-8 #### BEVERLEY Poe ([id number]) [facility] ([facility]) [address] [place] [address] RBC (Bld) [#/Vol] 2.65 x10*6/uL Low 4.00-5.20 [facility] Comment on above: Performed By: #### 5 7021-8 #### BEVERLEY Poe ([id number]) [facility] ([facility]) [address] [place] [address] WBC (Bld) [#/Vol] 3.5 x10*3/uL Low 4.4-11.3 [facility] Comment on above: Performed By: #### 5 7021-8 #### BEVERLEY Poe ([id number]) [facility] ([facility]) [address] [place] [address] Comprehensive metabolic 2000 panelon 09-15-2023 Albumin BCP dye [Mass/Vol] 3.0 g/dL Low 3.4 - 5.0 g/dL [facility] ALP [Catalytic activity/Vol] 47 U/L 33 - 136 U/L [facility] ALT With P-5'-P [Catalytic activity/Vol] 10 U/L 7 - 45 U/L [facility] Anion gap [Moles/Vol] 10 mmol/L 10 - 2 0 mmol/L [facility] AST With P-5'-P [Catalytic activity/Vol] 10 U/L 9 - 39 U/L [facility] Bilirubin [Mass/Vol] 0.6 mg/dL 0.0 - 1 .2 mg/dL [facility] Calcium [Mass/Vol] 8.8 mg/dL 8.6 - 10. 6 mg/dL [facility] Chloride [Moles/Vol] 100 mmol/L 98 - 10 7 mmol/L [facility] CO2 [Moles/Vol] 39 mmol/L High 21 - 32 mmol/L [facility] Creatinine [Mass/Vol] 0.45 mg/dL Low 0.50 - 1.05 mg/dL [facility] GFR/1.73 sq M.predicted MDRD (S/P/Bld) [Vol rate/Area] - PINF [facility] Glucose [Mass/Vol] 88 mg/dL 74 - 99 mg/dL [facility] Interpretation and review of laboratory results Abnormal [facility] Potassium [Moles/Vol] 4.2 mmol/L 3.5 - 5.3 mmol/L [facility] Protein [Mass/Vol] 6.1 g/dL Low 6.4 - 8.2 g/dL [facility] Sodium [Moles/Vol] 145 mmol/L 136 - 145 mmol/L [facility] Urea nitrogen [Mass/Vol] 13 mg/dL 6 - 23 mg/dL [facility] Albumin BCP dye [Mass/Vol] 3.0 g/dL Low 3.4-5.0 [facility] Comment on above: Performed By: #### 2 4323-8 #### BEVERLEY Poe ([id number]) [facility] ([facility]) [id number] [place] [address] 29395 ALP [Catalytic activity/Vol] 47 U/L Normal 33-136 [facility] Comment on above: Performed By: #### 2 4323-8 #### BEVERLEY Poe ([id number]) [facility] ([facility]) [id number] [place] [address] 97208 ALT With P-5'-P [Catalytic activity/Vol] 10 U/L Normal 7-45 [facility] Comment on above: Result Comment: Ирина ents treated with Sulfasalazine may generate falsely decreased results for ALT. Performed By: #### 2 4323-8 #### BEVERLEY Poe ([id number]) [facility] ([facility]) [address] [place] [address] Anion gap [Moles/Vol] 10 mmol/L Normal 10-20 [facility] Comment on above: Performed By: #### 2 4323-8 #### BEVERLEY Poe ([id number]) [facility] ([facility]) [address] [place] [address] AST With P-5'-P [Catalytic activity/Vol] 10 U/L Normal 9-39 [facility] Comment on above: Performed By: #### 2 4323-8 #### BEVERLEY Poe ([id number]) [facility] ([facility]) [id number] [place] [address] 90101 Bilirubin [Mass/Vol] 0.6 mg/dL Normal 0.0-1.2 [facility] Comment on above: Performed By: #### 2 4323-8 #### BEVERLEY Poe ([id number]) [facility] ([facility]) [id number] [place] [address] 30294 Calcium [Mass/Vol] 8.8 mg/dL Normal 8.6-10.6 [facility] Comment on above: Performed By: #### 2 4323-8 #### BEVERLEY Poe ([id number]) [facility] ([facility]) [address] [place] [address] 19069 Chloride [Moles/Vol] 100 mmol/L Normal 98-107 [facility] Comment on above: Performed By: #### 2 4323-8 #### BEVERLEY DODD L ([id number]) [facility] ([facility]) [id number] [place] [address] 40131 CO2 [Moles/Vol] 39 mmol/L High 21-32 [facility] Comment on above: Performed By: #### 2 4323-8 #### BEVERLEY DODD L ([id number]) [facility] ([facility]) [address] [place] [address] 77361 Creatinine [Mass/Vol] 0.45 mg/dL Low 0.50-1.05 [facility] Comment on above: Performed By: #### 2 4323-8 #### BEVERLEY DODD L ([id number]) [facility] ([facility]) [address] [place] [address] GFR/1.73 sq M.predicted MDRD (S/P/Bld) [Vol rate/Area] mL/min/{1.73_m2} Normal >60 [facility] Comment on above: Result Comment: Calc ulations of estimated GFR are performed using the 2020 CKD-EPI Study Refit equation without the race variable for the IDMS-Traceable creatinine methods. https://jasn.asnjournals.org/content/early//ASN.01696 69448 Performed By: #### 2 4323-8 #### BEVERLEY Poe ([id number]) [facility] ([facility]) [address] [place] [address] 70846 Glucose [Mass/Vol] 88 mg/dL Normal 74-99 [facility] Comment on above: Performed By: #### 2 4323-8 #### BEVERLEY DODD L ([id number]) [facility] ([facility]) [address] [place] [address] 20510 Potassium [Moles/Vol] 4.2 mmol/L Normal 3.5-5.3 [facility] Comment on above: Performed By: #### 2 4323-8 #### BEVERLEY DODD L ([id number]) [facility] ([facility]) [address] [place] [address] Protein [Mass/Vol] 6.1 g/dL Low 6.4-8.2 [facility] Comment on above: Performed By: #### 2 4323-8 #### BEVERLEY DODD L ([id number]) [facility] ([facility]) [address] [place] [address] 50351 Sodium [Moles/Vol] 145 mmol/L Normal 136-145 [facility] Comment on above: Performed By: #### 2 4323-8 #### BEVERLEY ODDD L ([id number]) [facility] ([facility]) [id number] [place] [address] 23154 Urea nitrogen [Mass/Vol] 13 mg/dL Normal 6-23 [facility] Comment on above: Performed By: #### 2 4323-8 #### BEVERLEY Poe ([id number]) [facility] ([facility]) [address] [place] [address] 77627 Glucose Glucometer (BldC) [M ass/Vol]Ordered By: Calvin Hester on 09-15-2023 Glucose [Mass/Vol] 95 mg/dL 74-106 [facility] Comment on above: MANAGEMENT OF PATIEN T CARE PER NURSING PROTOCOL Ketones Test strip Ql (U)Ord ered By: Calvin Hester on 09-15-2023 Ketones Ql (U) Negative Negative [facility] - Microbiology an d Antimicrobial susceptibilityOrdered By: Calvin Hester on 09-15-2023 Bacteria identified Cx Nom (Bld) No growth in 5 days. [facility] Magnesiumon 09-15-2023 Magnesium [Mass/Vol] 2.13 mg/dL 1.60 - 2.40 mg/dL [facility] Magnesium [Mass/Vol] 2.13 mg/dL Normal 1.60-2.40 [facility] Comment on above: Performed By: #### 1 9123-9 #### BEVERLEY Poe ([id number]) [facility] ([facility]) [address] [place] [address] 12909 Magnesium [Mass/Vol]on 09-15 Interpretation and review of laboratory results Normal [facility] Mucus LM Ql (Urine sed)Order ed By: Calvin Hester on 09-15-2023 Mucus Ql (Urine sed) 0 SEEN /hpf [facility] Nitrite Test strip Ql (U)Ord ered By: Calvin Hester on 09-15-2023 Nitrite Ql (U) Positive Negative [facility] No Panel Informationon 09-15 [facility] PT and aPTT panel Coag (PPP) on 09-15-2023 aPTT Coag (PPP) [Time] 24 s Low Un [facility] INR Coag (PPP) [Relative time] 1.0 {INR} 0.9 - 1.1 [facility] Interpretation and review of laboratory results Abnormal [facility] PT Coag (PPP) [Time] 11.6 s [facility] aPTT Coag (PPP) [Time] 24 s Low 27-38 Un [facility] Comment on above: Order Comment: The A PTT is no longer used for monitoring Unfractionated Heparin Therapy. For monitoring Heparin Therapy, use the Heparin Assay. Performed By: #### 3 4529-8 #### BEVERLEY Poe ([id number]) [facility] ([facility]) [address] [place] [address] 97788 INR Coag (PPP) [Relative time] 1.0 Normal 0.9-1.1 [facility] Comment on above: Order Comment: The A PTT is no longer used for monitoring Unfractionated Heparin Therapy. For monitoring Heparin Therapy, use the Heparin Assay. Performed By: #### 3 4529-8 #### BEVERLEY Poe ([id number]) [facility] ([facility]) [address] [place] [address] 13701 PT Coag (PPP) [Time] 11.6 s Normal 9.8-12.8 [facility] Comment on above: Order Comment: The A PTT is no longer used for monitoring Unfractionated Heparin Therapy. For monitoring Heparin Therapy, use the Heparin Assay. Performed By: #### 3 4529-8 #### BEVERLEY Poe ([id number]) [facility] ([facility]) [address] [place] [address] 45098 Protein Test strip Ql (U)Ord ered By: Calvin Hester on 09-15-2023 Protein Ql (U) 30 mg/dl Negative [facility] Squamous epithelial cells de tection in urine sediment by light microscopyOrdered By: Calvin Hester on 09-15-2023 Epithelial cells.squamous LM Ql (Urine sed) 0 SEEN /hpf 5-10 [facility] Urine blood detectionOrdered By: Calvin Hester on 09-15-2023 RBC Ql (U) 50 /ul Negative [facility] RBC Ql (U) 0-5 SEEN /hpf 0-5 [facility] Urine clarityOrdered By: Farooq Hester on 09-15-2023 Clarity (U) Clear Clear [facility] Urine color determinationOrd ered By: Calvin Hester on 09-15-2023 Color (U) Yellow Yellow [facility] Urine glucose detectionOrder ed By: Calvin Hester on 09-15-2023 Glucose Ql (U) Normal mg/dl Normal [facility] Urine leukocyte esterase det ection by dipstickOrdered By: Calvin Hester on 09-15-2023 Leukocyte esterase Test strip Ql (U) 100 /ul Negative [facility] Urine pHOrdered By: Calvin solorzano on 09-15-2023 pH (U) 6.0 [pH] 5.0 - 8.0 [facility] Urine sediment bacteria coun t by microscopy (number/high power field)Ordered By: Calvin Hester on 09-15-2023 Bacteria LM.HPF (Urine sed) [#/Area] 1 /[HPF] None Seen [facility] Urine specific gravity measu rementOrdered By: Calvin Hester on 09-15-2023 Specific gravity (U) [Rel density] 1.010 1.002-1.030 [facility] Urobilinogen Auto test strip Ql (U)Ordered By: Calvin Hester on 09-15-2023 Urobilinogen Ql (U) 1 mg/dl Normal [facility] Absolute lymphocyte countOrd ered By: Calvin Hester on 09-14-2023 Lymphocytes Auto (Unsp spec) [#/Vol] 0.70 10*3/uL 0.83-4.51 [facility] Basophil percentageOrdered B y: Calvin Hester on 09-14-2023 Basophils/100 WBC (Bld) 0.3 % 0-1 [facility] Bilirubin [Mass/Vol] 0.40 mg/dL 0.20-1.00 [facility] Comment on above: For patients on eltr ombopag therapy, use of Dimension [place] TBIL is not recommended. Chloride [Moles/Vol] 101 mmol/L 98-107 [facility] Eosinophils/100 WBC (Bld) 0.8 % 0-5 [facility] Glucose [Mass/Vol] 134 mg/dL 74-106 [facility] Comment on above: Fasting Glucose resu lt greater than or equal to 126 mg/dL suggests DIABETES MELLITUS per A.D.A. criteria. Neutrophils (Bld) [#/Vol] 2.5 10*3/uL 2.0-7.7 [facility] Neutrophils/100 WBC (Bld) 70.5 % 47-70 [facility] Potassium [Moles/Vol] 4.0 mmol/L 3.5-5.1 [facility] Protein [Mass/Vol] 6.9 g/dL 6.4-8.2 [facility] Sodium [Moles/Vol] 144 mmol/L 136-145 [facility] WBC (Bld) [#/Vol] 3.6 10*3/uL 4.4-11.0 [facility] Blood erythrocytes count (nu mber/volume)Ordered By: Calvin Hester on 09-14-2023 RBC (Bld) [#/Vol] 2.80 10*6/uL 4.2-5.4 [facility] Blood hemoglobin measurement (mass/volume)Ordered By: Calvin Hester on 09-14-2023 Hemoglobin (Bld) [Mass/Vol] 8.3 g/dL 12.0-15.0 [facility] Blood lymphocytes/100 leukoc ytesOrdered By: Calvin Hester on 09-14-2023 Lymphocytes/100 WBC (Bld) 19.5 % 19-41 [facility] Blood monocytes/100 leukocyt esOrdered By: Calvin Hester on 09-14-2023 Monocytes/100 WBC (Bld) 7.8 % 0-10 [facility] Blood platelet mean volumeOr dered By: Calvin Hester on 09-14-2023 Platelet mean volume (Bld) [Entitic vol] 8.8 fL 6.2-12.0 [facility] Determination of erythrocyte mean corpuscular volume (MCV)Ordered By: Calvin Hester on 09-14-2023 MCV (RBC) [Entitic vol] 102.9 fL 81-99 [facility] Direct bilirubinOrdered By: Calvin Hester on 09-14-2023 Bilirubin.direct [Mass/Vol] 0.09 mg/dL 0.00-0.30 [facility] Hematocrit Auto (Bld) [Volum e fraction]Ordered By: Calvin Hester on 09-14-2023 Hematocrit (Bld) [Volume fraction] 28.8 % 37-47 [facility] INR in Blood by Coagulation assayOrdered By: Calvin Hester on 09-14-2023 INR Coag (Bld) [Relative time] 1.0 {INR} [facility] - Chemistry and C hemistry - challengeOrdered By: Calvin Hester on 09-14-2023 ALP [Catalytic activity/Vol] 66 U/L 45-117 [facility] ALT [Catalytic activity/Vol] 18 U/L 13-56 [facility] CO2 [Moles/Vol] 41.0 mmol/L 21.0-32.0 [facility] Globulin (S) [Mass/Vol] 4.4 g/dL 2.2-4.2 [facility] Lipase [Catalytic activity/Vol] 24 U/L 13-75 [facility] Comment on above: Please note:LIPASE r evised reference range effective 23. New Lipase methodology. Expected to produce lower values than the previous assay method. NEW Reference Range: 13 - 75 U/L Urea nitrogen/Creatinine [Mass ratio] 25.5 mg/mg 10-20 [facility] - CoagulationOrde red By: Calvin Hester on 09-14-2023 aPTT Coag (Bld) [Time] 29.8 s 24.1-36.2 [facility] PT Coag (PPP) [Time] 13.0 s 11.7-14.9 [facility] - Hematology and Cell countsOrdered By: Calvin Hester on 09-14-2023 Erythrocyte distribution width (RBC) [Entitic vol] 53.0 fL 35.1-43.9 [facility] Erythrocyte distribution width (RBC) [Ratio] 14.1 % 11.6-14.6 [facility] Immature granulocytes/100 WBC (Bld) 1.100 % 0.0-0.9 [facility] Comment on above: IG% - Immature Granu locytes (promyelocytes, myelocytes and metamyelocytes) > 1% indicates that a LEFT SHIFT is Present. MCH (RBC) [Entitic mass] 29.6 pg 27.0-32.0 [facility] Nucleated RBC/100 WBC (Bld) [Ratio] 0 % 0-5 [facility] ([facility]) [Mass/Vol]Or dered By: Calvin Hester on 09-14-2023 MCHC (RBC) [Mass/Vol] 28.8 g/dL 32-36 [facility] No Panel InformationOrdered By: Calvin Hester on 09-14-2023 Estimated Creatinine Clearance Calc 54.98 ml/min [facility] Estimated GFR (MDRD) Amer 87 mL/min >60 [facility] Comment on above: GFR Calc Estimated GFR (MDRD) Non-Af Amer 72 mL/min >60 [facility] Comment on above: Non- GFR Calc Platelets bldOrdered By: Farooq Hester on 09-14-2023 Platelets (Bld) [#/Vol] 109 10*3/uL 150-450 [facility] Serum or plasma albumin celina urement (mass/volume)Ordered By: Calvin Hester on 09-14-2023 Albumin [Mass/Vol] 2.5 g/dL 3.2-5.0 [facility] Serum or plasma calcium celina urement (mass/volume)Ordered By: Calvin Hester on 09-14-2023 Calcium [Mass/Vol] 9.0 mg/dL 8.5-10.1 [facility] Serum or plasma creatinine m easurement (mass/volume)Ordered By: Calvin Hester on 09-14-2023 Creatinine [Mass/Vol] 0.82 mg/dL 0.55-1.02 [facility] Comment on above: The validity of the calculated GFR & GFRAA in patients over 70 years has not been determined. Clinical correlation is essential. Serum or plasma urea nitroge n measurement (mass/volume)Ordered By: Calvin Hester on 09-14-2023 Urea nitrogen [Mass/Vol] 21 mg/dL 7-18 [facility] Thin prep Papanicolaou smear with manual screeningOrdered By: Calvin Hester on 09-14-2023 Thin prep Papanicolaou smear with manual screening 10 U/L 15-37 [facility] Thin prep Papanicolaou smear with manual screening 2 5-15 [facility] Basophil percentageOrdered B y: Jonathan Dillard on 09-13-2023 Bilirubin [Mass/Vol] 0.30 mg/dL 0.20-1.00 [facility] Comment on above: For patients on eltr ombopag therapy, use of Dimension [place] TBIL is not recommended. Chloride [Moles/Vol] 103 mmol/L 98-107 [facility] Glucose [Mass/Vol] 111 mg/dL 74-106 [facility] Comment on above: Fasting Glucose resu lt from 100 to 125 mg/dL suggests IMPAIRED HOMEOSTASIS per A.D.A. criteria. Potassium [Moles/Vol] 3.8 mmol/L 3.5-5.1 [facility] Protein [Mass/Vol] 6.6 g/dL 6.4-8.2 [facility] Sodium [Moles/Vol] 145 mmol/L 136-145 [facility] WBC (Bld) [#/Vol] 2.8 10*3/uL 4.4-11.0 [facility] Blood erythrocytes count (nu mber/volume)Ordered By: Jonathan Dillard on 09-13-2023 RBC (Bld) [#/Vol] 2.62 10*6/uL 4.2-5.4 [facility] Blood hemoglobin measurement (mass/volume)Ordered By: Jonathan Dillard on 09-13-2023 Hemoglobin (Bld) [Mass/Vol] 8.0 g/dL 12.0-15.0 [facility] Blood platelet mean volumeOr dered By: Jonathan Dillard on 09-13-2023 Platelet mean volume (Bld) [Entitic vol] 8.6 fL 6.2-12.0 [facility] Determination of erythrocyte mean corpuscular volume (MCV)Ordered By: Jonathan Dillard on 09-13-2023 MCV (RBC) [Entitic vol] 103.4 fL 81-99 [facility] Hematocrit Auto (Bld) [Volum e fraction]Ordered By: Jonathan Dillard on 09-13-2023 Hematocrit (Bld) [Volume fraction] 27.1 % 37-47 [facility] - Chemistry and C hemistry - challengeOrdered By: Jonathan Dillard on 09-13-2023 ALP [Catalytic activity/Vol] 58 U/L 45-117 [facility] ALT [Catalytic activity/Vol] 18 U/L 13-56 [facility] CO2 [Moles/Vol] 41.0 mmol/L 21.0-32.0 [facility] Globulin (S) [Mass/Vol] 4.2 g/dL 2.2-4.2 [facility] Urea nitrogen/Creatinine [Mass ratio] 34.5 mg/mg 10-20 [facility] - Hematology and Cell countsOrdered By: Jonathan Dillard on 09-13-2023 Erythrocyte distribution width (RBC) [Entitic vol] 54.3 fL 35.1-43.9 [facility] Erythrocyte distribution width (RBC) [Ratio] 14.4 % 11.6-14.6 [facility] MCH (RBC) [Entitic mass] 30.5 pg 27.0-32.0 [facility] MCHC Auto (RBC) [Mass/Vol]Or dered By: Jonathan Dillard on 09-13-2023 MCHC (RBC) [Mass/Vol] 29.5 g/dL 32-36 [facility] Comment on above: Delta: 27.9 on 09/08 No Panel InformationOrdered By: Jonathan Dillard on 09-13-2023 Estimated GFR (MDRD) Amer 148 mL/min >60 [facility] Comment on above: GFR Calc Estimated GFR (MDRD) Non-Af Amer 122 mL/min >60 [facility] Comment on above: Non- GFR Calc Platelets bldOrdered By: Mervat Dillard on 09-13-2023 Platelets (Bld) [#/Vol] 103 10*3/uL 150-450 [facility] Serum or plasma albumin celina urement (mass/volume)Ordered By: Jonathan Dillard on 09-13-2023 Albumin [Mass/Vol] 2.4 g/dL 3.2-5.0 [facility] Serum or plasma albumin/glob ulin mass ratioOrdered By: Jonathan Dillard on 09-13-2023 Albumin/Globulin [Mass ratio] 0.6 {ratio} 0.9-2.4 [facility] Serum or plasma calcium celina urement (mass/volume)Ordered By: Jonathan Dillard on 09-13-2023 Calcium [Mass/Vol] 8.7 mg/dL 8.5-10.1 [facility] Serum or plasma creatinine m easurement (mass/volume)Ordered By: Jonathan Dillard on 09-13-2023 Creatinine [Mass/Vol] 0.52 mg/dL 0.55-1.02 [facility] Comment on above: The validity of the calculated GFR & GFRAA in patients over 70 years has not been determined. Clinical correlation is essential. Serum or plasma urea nitroge n measurement (mass/volume)Ordered By: Jonathan Dillard on 09-13-2023 Urea nitrogen [Mass/Vol] 18 mg/dL 7-18 [facility] Thin prep Papanicolaou smear with manual screeningOrdered By: Jonathan Dillard on 09-13-2023 Thin prep Papanicolaou smear with manual screening 11 U/L 15-37 [facility] Thin prep Papanicolaou smear with manual screening 1 5-15 [facility] Culture, urineOrdered By: Chloe Jeffries on 09-09-2023 Bacteria identified Cx Nom (U) Mixed Gram Pos & Gram Neg Org [facility] Cytology report of Body flui d Cyto stainOrdered By: Alecia Navarrete on 09-09-2023 Cytology report Cyto stain Doc (Body fld) SEE PATHOLOGY REPORT [facility] Comment on above: Specimen submitted t o Anatomical Pathology Department for testing. Absolute lymphocyte countOrd ered By: Delfin Jeffries on 09-08-2023 Lymphocytes Auto (Unsp spec) [#/Vol] 0.60 10*3/uL 0.83-4.51 [facility] Basophil percentageOrdered B y: Delfin Jeffries on 09-08-2023 Basophil percentage >100 SEEN /hpf 0-5 [facility] Comment on above: Microscopic field is filled. Other elements may be obscured. Basophil percentage 3.4 mg/dL 2.5-4.9 [facility] Basophils/100 WBC (Bld) 0.2 % 0-1 [facility] Bilirubin [Mass/Vol] 0.40 mg/dL 0.20-1.00 [facility] Comment on above: For patients on eltr ombopag therapy, use of Dimension [place] TBIL is not recommended. Chloride [Moles/Vol] 104 mmol/L 98-107 [facility] Eosinophils/100 WBC (Bld) 0.7 % 0-5 [facility] Glucose [Mass/Vol] 163 mg/dL 74-106 [facility] Comment on above: Fasting Glucose resu lt greater than or equal to 126 mg/dL suggests DIABETES MELLITUS per A.D.A. criteria. Neutrophils (Bld) [#/Vol] 3.5 10*3/uL 2.0-7.7 [facility] Neutrophils/100 WBC (Bld) 78.8 % 47-70 [facility] Potassium [Moles/Vol] 3.8 mmol/L 3.5-5.1 [facility] Protein [Mass/Vol] 7.1 g/dL 6.4-8.2 [facility] Sodium [Moles/Vol] 143 mmol/L 136-145 [facility] WBC (Bld) [#/Vol] 4.5 10*3/uL 4.4-11.0 [facility] Bilirubin Test strip Ql (U)O rdered By: Delfin Jeffries on 09-08-2023 Bilirubin Ql (U) Negative Negative [facility] Blood erythrocytes count (nu mber/volume)Ordered By: Delfin Jeffries on 09-08-2023 RBC (Bld) [#/Vol] 3.10 10*6/uL 4.2-5.4 [facility] Blood hemoglobin measurement (mass/volume)Ordered By: Delfin Jeffries on 09-08-2023 Hemoglobin (Bld) [Mass/Vol] 9.0 g/dL 12.0-15.0 [facility] Blood lymphocytes/100 leukoc ytesOrdered By: Delfin Jeffries on 09-08-2023 Lymphocytes/100 WBC (Bld) 13.4 % 19-41 [facility] Blood manual differential co mment interpretation (narrative result)Ordered By: Delfin Jeffries on 09-08-2023 Manual differential comment Ajit (Bld) [Interp] SCANNED [facility] Blood monocytes/100 leukocyt esOrdered By: Delfin Jeffries on 09-08-2023 Monocytes/100 WBC (Bld) 6.5 % 0-10 [facility] Blood platelet mean volumeOr dered By: Delfin Jeffries on 09-08-2023 Platelet mean volume (Bld) [Entitic vol] 8.1 fL 6.2-12.0 [facility] Culture, urineOrdered By: Chloe Jeffries on 09-08-2023 Bacteria identified Cx Nom (U) Mixed Gram Pos & Gram Neg Org [facility] Determination of erythrocyte mean corpuscular volume (MCV)Ordered By: Delfin Jeffries on 09-08-2023 MCV (RBC) [Entitic vol] 104.2 fL 81-99 [facility] Erythrocyte sedimentation ra teOrdered By: Delfin Jeffries on 09-08-2023 ESR (Bld) [Velocity] 43 mm/h 0-30 [facility] Hematocrit Auto (Bld) [Volum e fraction]Ordered By: Delfin Jeffries on 09-08-2023 Hematocrit (Bld) [Volume fraction] 32.3 % 37-47 [facility] Hemoglobin in reticulocytes (mass per reticulocyte)Ordered By: Delfin Jeffries on 09-08-2023 Hemoglobin (Reticulocytes) [Entitic mass] 26.4 pg 30-35 [facility] Iron measurement (mass/mass) Ordered By: Delfin Jeffries on 09-08-2023 Iron (Unsp spec) [Mass/Mass] 32 ug/dL 50-170 [facility] Ketones Test strip Ql (U)Ord ered By: Delfin Jeffries on 09-08-2023 Ketones Ql (U) 5 mg/dl Negative [facility] Laboratory - Chemistry and C hemistry - challengeOrdered By: Delfin Jeffries on 09-08-2023 ALP [Catalytic activity/Vol] 69 U/L 45-117 [facility] ALT [Catalytic activity/Vol] 17 U/L 13-56 [facility] CO2 [Moles/Vol] 38.0 mmol/L 21.0-32.0 [facility] Cobalamin (Vitamin B12) [Mass/Vol] 1331 pg/mL 211-911 [facility] Globulin (S) [Mass/Vol] 4.5 g/dL 2.2-4.2 [facility] Magnesium [Mass/Vol] 2.1 mg/dL 1.6-2.6 [facility] Urea nitrogen/Creatinine [Mass ratio] 31.6 mg/mg 10-20 [facility] Laboratory - Hematology and Cell countsOrdered By: Delfin Jeffries on 09-08-2023 Erythrocyte distribution width (RBC) [Entitic vol] 55.1 fL 35.1-43.9 [facility] Erythrocyte distribution width (RBC) [Ratio] 14.6 % 11.6-14.6 [facility] Immature granulocytes/100 WBC (Bld) 0.400 % 0.0-0.9 [facility] Comment on above: IG% - Immature Granu locytes (promyelocytes, myelocytes and metamyelocytes) > 1% indicates that a LEFT SHIFT is Present. MCH (RBC) [Entitic mass] 29.0 pg 27.0-32.0 [facility] Nucleated RBC/100 WBC (Bld) [Ratio] 0 % 0-5 [facility] MCHC Auto (RBC) [Mass/Vol]Or dered By: Delfin Jeffries on 09-08-2023 MCHC (RBC) [Mass/Vol] 27.9 g/dL 32-36 [facility] Mucus LM Ql (Urine sed)Order ed By: Delfin Jeffries on 09-08-2023 Mucus Ql (Urine sed) 0 SEEN /hpf [facility] Nitrite Test strip Ql (U)Ord ered By: Delfin Jeffries on 09-08-2023 Nitrite Ql (U) Negative Negative [facility] No Panel InformationOrdered By: Delfin Jeffries on 09-08-2023 Estimated Creatinine Clearance Calc 43.27 ml/min [facility] Estimated GFR (MDRD) Amer 118 mL/min >60 [facility] Comment on above: GFR Calc Estimated GFR (MDRD) Non-Af Amer 98 mL/min >60 [facility] Comment on above: Non- GFR Calc Immature Reticulocyte Fraction 17.60 % 3.00-15.90 [facility] Reticulocyte Count 2.46 % 0.5-1.5 [facility] Total Iron Binding Capacity 216 ug/dL 250-450 [facility] Platelets bldOrdered By: Luciano Jeffries on 09-08-2023 Platelets (Bld) [#/Vol] 113 10*3/uL 150-450 [facility] Protein Test strip Ql (U)Ord ered By: Delfin Jeffries on 09-08-2023 Protein Ql (U) 500 mg/dl Negative [facility] Serum or plasma C reactive p rotein measurement (mass/volume)Ordered By: Delfin Benson on 09-08-2023 CRP [Mass/Vol] 81.40 mg/L 0.0-3.0 [facility] Comment on above: C-Reactive Protein ( CRP) provides useful information for thediagnosis, therapy and monitoring of inflammatory processesand associated diseases. For the evaluation of Relative Riskfor Cardiovascular Disease, a High Sensitivity CRP (HSCRP)should be ordered. Serum or plasma albumin celina urement (mass/volume)Ordered By: Delfin Jeffries on 09-08-2023 Albumin [Mass/Vol] 2.6 g/dL 3.2-5.0 [facility] Serum or plasma albumin/glob ulin mass ratioOrdered By: Delfin Jeffries on 09-08-2023 Albumin/Globulin [Mass ratio] 0.6 {ratio} 0.9-2.4 [facility] Serum or plasma calcium celina urement (mass/volume)Ordered By: Delfin Benson on 09-08-2023 Calcium [Mass/Vol] 8.7 mg/dL 8.5-10.1 [facility] Serum or plasma creatinine m easurement (mass/volume)Ordered By: Delfin Benson on 09-08-2023 Creatinine [Mass/Vol] 0.63 mg/dL 0.55-1.02 [facility] Comment on above: The validity of the calculated GFR & GFRAA in patients over 70 years has not been determined. Clinical correlation is essential. Serum or plasma ferritin carter surement (mass/volume)Ordered By: Delfin Jeffries on 09-08-2023 Ferritin [Mass/Vol] 243 ng/mL 8-252 [facility] Serum or plasma folate measu rement (mass/volume)Ordered By: Delfin Jeffries on 09-08-2023 Folate [Mass/Vol] 84.50 ng/mL 3.1-55.4 [facility] Serum or plasma iron saturat ion measurement (mass fraction)Ordered By: Delfin Jeffries on 09-08-2023 Iron saturation [Mass fraction] 14.8 % 15.0-55.0 [facility] Serum or plasma urea nitroge n measurement (mass/volume)Ordered By: Delfin Jeffries on 09-08-2023 Urea nitrogen [Mass/Vol] 20 mg/dL 7-18 [facility] Squamous epithelial cells de tection in urine sediment by light microscopyOrdered By: Delfin Jeffries on 09-08-2023 Epithelial cells.squamous LM Ql (Urine sed) 0 SEEN /hpf 5-10 [facility] Thin prep Papanicolaou smear with manual screeningOrdered By: Delfin Jeffries on 09-08-2023 Thin prep Papanicolaou smear with manual screening 15 U/L 15-37 [facility] Thin prep Papanicolaou smear with manual screening 1 5-15 [facility] Urine blood detectionOrdered By: Delfin Jeffries on 09-08-2023 RBC Ql (U) 250 /ul Negative [facility] RBC Ql (U) > 100 SEEN /hpf 0-5 [facility] Comment on above: Microscopic field is filled. Other elements may be obscured. Urine clarityOrdered By: Luciano Jeffries on 09-08-2023 Clarity (U) Cloudy Clear [facility] Urine color determinationOrd ered By: Delfin Jeffries on 09-08-2023 Color (U) Brown Yellow [facility] Urine glucose detectionOrder ed By: Delfin Jeffries on 09-08-2023 Glucose Ql (U) Normal mg/dl Normal [facility] Urine leukocyte esterase det ection by dipstickOrdered By: Delfin Jeffries on 09-08-2023 Leukocyte esterase Test strip Ql (U) 100 /ul Negative [facility] Urine pHOrdered By: Delfin elizabeth on 09-08-2023 pH (U) 5.0 [pH] 5.0 - 8.0 [facility] Urine sediment bacteria coun t by microscopy (number/high power field)Ordered By: Delfin Jeffries on 09-08-2023 Bacteria LM.HPF (Urine sed) [#/Area] 0 /[HPF] None Seen [facility] Urine specific gravity measu rementOrdered By: Delfin Jeffries on 09-08-2023 Specific gravity (U) [Rel density] 1.020 1.002-1.030 [facility] Urobilinogen Auto test strip Ql (U)Ordered By: Delfin Jeffries on 09-08-2023 Urobilinogen Ql (U) Normal mg/dl Normal [facility] Basophil percentageOrdered B y: Jonathan Dillard on 08-31-2023 Basophil percentage >100 SEEN /hpf 0-5 [facility] Chloride [Moles/Vol] 104 mmol/L 98-107 [facility] Glucose [Mass/Vol] 110 mg/dL 74-106 [facility] Comment on above: Fasting Glucose resu lt from 100 to 125 mg/dL suggests IMPAIRED HOMEOSTASIS per A.D.A. criteria. Potassium [Moles/Vol] 3.9 mmol/L 3.5-5.1 [facility] Sodium [Moles/Vol] 146 mmol/L 136-145 [facility] WBC (Bld) [#/Vol] 3.7 10*3/uL 4.4-11.0 [facility] Bilirubin Test strip Ql (U)O rdered By: Jonathan Dillard on 08-31-2023 Bilirubin Ql (U) Negative Negative [facility] Blood erythrocytes count (nu mber/volume)Ordered By: Jonathan Dillard on 08-31-2023 RBC (Bld) [#/Vol] 2.85 10*6/uL 4.2-5.4 [facility] Blood hemoglobin measurement (mass/volume)Ordered By: Jonathan Dillard on 08-31-2023 Hemoglobin (Bld) [Mass/Vol] 8.5 g/dL 12.0-15.0 [facility] Blood manual differential co mment interpretation (narrative result)Ordered By: Jonathan Dillard on 08-31-2023 Manual differential comment Ajit (Bld) [Interp] COMMENT [facility] Comment on above: PLT POPULATION - MOD ERATELY DECREASED. Blood platelet mean volumeOr dered By: Jonathan Dillard on 08-31-2023 Platelet mean volume (Bld) [Entitic vol] 9.6 fL 6.2-12.0 [facility] Culture, urineOrdered By: Higuera on 08-31-2023 Bacteria identified Cx Nom (U) Mixed Gram Pos & Gram Neg Org [facility] Determination of erythrocyte mean corpuscular volume (MCV)Ordered By: Jonathan Dillard on 08-31-2023 MCV (RBC) [Entitic vol] 102.8 fL 81-99 [facility] Hematocrit Auto (Bld) [Volum e fraction]Ordered By: Jonathan Dillard on 08-31-2023 Hematocrit (Bld) [Volume fraction] 29.3 % 37-47 [facility] Ketones Test strip Ql (U)Ord ered By: Jonathan Dillard on 08-31-2023 Ketones Ql (U) Negative Negative [facility] Laboratory - Chemistry and C hemistry - challengeOrdered By: Jonathan Dillard on 08-31-2023 CO2 [Moles/Vol] 39.0 mmol/L 21.0-32.0 [facility] Urea nitrogen/Creatinine [Mass ratio] 37.5 mg/mg 10-20 [facility] Laboratory - Hematology and Cell countsOrdered By: Jonathan Dillard on 08-31-2023 Erythrocyte distribution width (RBC) [Entitic vol] 54.3 fL 35.1-43.9 [facility] Erythrocyte distribution width (RBC) [Ratio] 14.4 % 11.6-14.6 [facility] MCH (RBC) [Entitic mass] 29.8 pg 27.0-32.0 [facility] MCHC Auto (RBC) [Mass/Vol]Or dered By: Jonathan Dillard on 08-31-2023 MCHC (RBC) [Mass/Vol] 29.0 g/dL 32-36 [facility] Mucus LM Ql (Urine sed)Order ed By: Jonathan Dillard on 08-31-2023 Mucus Ql (Urine sed) 0 SEEN /hpf [facility] Nitrite Test strip Ql (U)Ord ered By: Jonathan Dillard on 08-31-2023 Nitrite Ql (U) Negative Negative [facility] No Panel InformationOrdered By: Jonathan Dillard on 08-31-2023 Estimated GFR (MDRD) Amer 153 mL/min >60 [facility] Comment on above: GFR Calc Estimated GFR (MDRD) Non-Af Amer 127 mL/min >60 [facility] Comment on above: Non- GFR Calc Platelets bldOrdered By: Mervat Dillard on 08-31-2023 Platelets (Bld) [#/Vol] 96 10*3/uL 150-450 [facility] Protein Test strip Ql (U)Ord ered By: Jonathan Dillard on 08-31-2023 Protein Ql (U) 100 mg/dl Negative [facility] Serum or plasma calcium celina urement (mass/volume)Ordered By: Jonathan Dillard on 08-31-2023 Calcium [Mass/Vol] 9.5 mg/dL 8.5-10.1 [facility] Serum or plasma creatinine m easurement (mass/volume)Ordered By: Jonathan Dillard on 08-31-2023 Creatinine [Mass/Vol] 0.51 mg/dL 0.55-1.02 [facility] Comment on above: The validity of the calculated GFR & GFRAA in patients over 70 years has not been determined. Clinical correlation is essential. Serum or plasma urea nitroge n measurement (mass/volume)Ordered By: Jonathan Dillard on 08-31-2023 Urea nitrogen [Mass/Vol] 19 mg/dL - [facility] Squamous epithelial cells de tection in urine sediment by light microscopyOrdered By: Jonathan Dillard on 08-31-2023 Epithelial cells.squamous LM Ql (Urine sed) 0 SEEN /hpf 5-10 [facility] Thin prep Papanicolaou smear with manual screeningOrdered By: Jonathan Dillard on 08-31-2023 Thin prep Papanicolaou smear with manual screening 3 5-15 [facility] Urine blood detectionOrdered By: Jonathan Dillard on 08-31-2023 RBC Ql (U) 250 /ul Negative [facility] RBC Ql (U) > 100 SEEN /hpf 0-5 [facility] Urine clarityOrdered By: Mervat Dillard on 08-31-2023 Clarity (U) Cloudy Clear [facility] Urine color determinationOrd ered By: Jonathan Dillard on 08-31-2023 Color (U) Yellow Yellow [facility] Urine glucose detectionOrder ed By: Jonathan Dillard on 08-31-2023 Glucose Ql (U) Normal mg/dl Normal [facility] Urine leukocyte esterase det ection by dipstickOrdered By: Jonathan Dillard on 08-31-2023 Leukocyte esterase Test strip Ql (U) 500 /ul Negative [facility] Urine pHOrdered By: Jonathan ramirez on 08-31-2023 pH (U) 6.0 [pH] 5.0 - 8.0 [facility] Urine sediment bacteria coun t by microscopy (number/high power field)Ordered By: Jonathan Dillard on 08-31-2023 Bacteria LM.HPF (Urine sed) [#/Area] 2 /[HPF] None Seen [facility] Urine specific gravity measu rementOrdered By: Jonathan Dillard on 08-31-2023 Specific gravity (U) [Rel density] 1.015 1.002-1.030 [facility] Urobilinogen Auto test strip Ql (U)Ordered By: Jonathan Dillard on 08-31-2023 Urobilinogen Ql (U) Normal mg/dl Normal [facility] Culture, urineOrdered By: Higuera on 08-17-2023 Bacteria identified Cx Nom (U) Mixed Gram Pos & Gram Neg Org [facility] XR BARIUM ENEMA COMPLETEon 1 XR [...] 08/17/2023 3:50:07 PM Ordering Provider: MARK JEREZ [facility] ([place]) Basophil percentageOrdered B y: Jonathan Dillard on 08-16-2023 Basophil percentage 0-5 SEEN /hpf 0-5 [facility] Bilirubin Test strip Ql (U)O rdered By: Jonathan Dillard on 08-16-2023 Bilirubin Ql (U) Negative Negative [facility] Culture, urineOrdered By: Higuera on 08-16-2023 Bacteria identified Cx Nom (U) Mixed Gram Pos & Gram Neg Org [facility] Hyaline casts LM.LPF (Urine sed) [#/Area]Ordered By: Jonathan Dillard on 08-16-2023 Hyaline casts (Urine sed) [#/Area] 5 /[LPF] 0-5 [facility] Ketones Test strip Ql (U)Ord ered By: Jonathan Dillard on 08-16-2023 Ketones Ql (U) 5 mg/dl Negative [facility] Mucus LM Ql (Urine sed)Order ed By: Jonathan Dillard on 08-16-2023 Mucus Ql (Urine sed) 0 SEEN /hpf [facility] Nitrite Test strip Ql (U)Ord ered By: Jonathan Dillard on 08-16-2023 Nitrite Ql (U) Negative Negative [facility] Protein Test strip Ql (U)Ord ered By: Jonathan Dillard on 08-16-2023 Protein Ql (U) 100 mg/dl Negative [facility] Squamous epithelial cells de tection in urine sediment by light microscopyOrdered By: Jonathan Dillard on 08-16-2023 Epithelial cells.squamous LM Ql (Urine sed) 5-10 SEEN /hpf 5-10 [facility] Urine blood detectionOrdered By: Jonathan Dillard on 08-16-2023 RBC Ql (U) 150 /ul Negative [facility] RBC Ql (U) 5-10 SEEN /hpf 0-5 [facility] Urine clarityOrdered By: Mervat Dillard on 08-16-2023 Clarity (U) Sl. Cloudy Clear [facility] Urine color determinationOrd ered By: Jonathan Dillard on 08-16-2023 Color (U) Yellow Yellow [facility] Urine glucose detectionOrder ed By: Jonathan Dillard on 08-16-2023 Glucose Ql (U) Normal mg/dl Normal [facility] Urine leukocyte esterase det ection by dipstickOrdered By: Jonathan Dillard on 08-16-2023 Leukocyte esterase Test strip Ql (U) 25 /ul Negative [facility] Urine pHOrdered By: Jonathan ramirez on 08-16-2023 pH (U) 5.0 [pH] 5.0 - 8.0 [facility] Urine sediment bacteria coun t by microscopy (number/high power field)Ordered By: Jonathan Dillard on 08-16-2023 Bacteria LM.HPF (Urine sed) [#/Area] 1 /[HPF] None Seen [facility] Urine specific gravity measu rementOrdered By: Jonathan Dillard on 08-16-2023 Specific gravity (U) [Rel density] 1.025 1.002-1.030 [facility] Urobilinogen Auto test strip Ql (U)Ordered By: Jonathan Dillard on 08-16-2023 Urobilinogen Ql (U) Normal mg/dl Normal [facility] LABORATORYOrdered By: Amy Gomez on 08-15-2023 Glucose [Mass/Vol] 147 mg/dL Invalid Interpretation Code 82 - 115 mg/dL [facility] Work Phone: XR [phone] APon 08-15-2023 XR [...] 08/15/2023 12:08:09 PM Ordering Provider: MARK JEREZ [facility] ([place]) Absolute lymphocyte countOrd ered By: Calvin Hester on 08-10-2023 Lymphocytes Auto (Unsp spec) [#/Vol] 0.52 10*3/uL 0.83-4.51 [facility] Basophil percentageOrdered B y: Calvin Hester on 08-10-2023 Basophils/100 WBC (Bld) 0.1 % 0-1 [facility] Chloride [Moles/Vol] 103 mmol/L 98-107 [facility] Eosinophils/100 WBC (Bld) 0.4 % 0-5 [facility] Glucose [Mass/Vol] 149 mg/dL 74-106 [facility] Comment on above: Fasting Glucose resu lt greater than or equal to 126 mg/dL suggests DIABETES MELLITUS per A.D.A. criteria. Neutrophils (Bld) [#/Vol] 5.8 10*3/uL 2.0-7.7 [facility] Neutrophils/100 WBC (Bld) 85.8 % 47-70 [facility] Potassium [Moles/Vol] 4.1 mmol/L 3.5-5.1 [facility] Sodium [Moles/Vol] 144 mmol/L 136-145 [facility] WBC (Bld) [#/Vol] 6.8 10*3/uL 4.4-11.0 [facility] Blood erythrocytes count (nu mber/volume)Ordered By: Calvin Hester on 08-10-2023 RBC (Bld) [#/Vol] 3.38 10*6/uL 4.2-5.4 [facility] Blood hemoglobin measurement (mass/volume)Ordered By: Calvin Hester on 08-10-2023 Hemoglobin (Bld) [Mass/Vol] 9.9 g/dL 12.0-15.0 [facility] Blood lymphocytes/100 leukoc ytesOrdered By: Calvin Hester on 08-10-2023 Lymphocytes/100 WBC (Bld) 7.6 % 19-41 [facility] Blood manual differential co mment interpretation (narrative result)Ordered By: Calvin Hester on 08-10-2023 Manual differential comment Ajit (Bld) [Interp] SCANNED [facility] Comment on above: LYMPHOPENIA NOTED Blood monocytes/100 leukocyt esOrdered By: Calvin Hester on 08-10-2023 Monocytes/100 WBC (Bld) 5.7 % 0-10 [facility] Blood platelet mean volumeOr dered By: aClvin Hester on 08-10-2023 Platelet mean volume (Bld) [Entitic vol] 9.1 fL 6.2-12.0 [facility] Determination of erythrocyte mean corpuscular volume (MCV)Ordered By: Calvin Hester on 08-10-2023 MCV (RBC) [Entitic vol] 100.0 fL 81-99 [facility] Hematocrit Auto (Bld) [Volum e fraction]Ordered By: Calvin Hester on 08-10-2023 Hematocrit (Bld) [Volume fraction] 33.8 % 37-47 [facility] Laboratory - Chemistry and C hemistry - challengeOrdered By: Calvin Hester on 08-10-2023 CO2 [Moles/Vol] 40.0 mmol/L 21.0-32.0 [facility] Magnesium [Mass/Vol] 2.1 mg/dL 1.6-2.6 [facility] Urea nitrogen/Creatinine [Mass ratio] 29.3 mg/mg 10-20 [facility] Laboratory - Hematology and Cell countsOrdered By: Calvin Hester on 08-10-2023 Erythrocyte distribution width (RBC) [Entitic vol] 51.8 fL 35.1-43.9 [facility] Erythrocyte distribution width (RBC) [Ratio] 14.1 % 11.6-14.6 [facility] Immature granulocytes/100 WBC (Bld) 0.400 % 0.0-0.9 [facility] Comment on above: IG% - Immature Granu locytes (promyelocytes, myelocytes and metamyelocytes) > 1% indicates that a LEFT SHIFT is Present. MCH (RBC) [Entitic mass] 29.3 pg 27.0-32.0 [facility] Nucleated RBC/100 WBC (Bld) [Ratio] 0 % 0-5 [facility] MCHC Auto (RBC) [Mass/Vol]Or dered By: Calvin Hester on 08-10-2023 MCHC (RBC) [Mass/Vol] 29.3 g/dL 32-36 [facility] No Panel InformationOrdered By: Calvin Hester on 08-10-2023 Estimated Creatinine Clearance Calc 45.09 ml/min [facility] Estimated GFR (MDRD) Amer 123 mL/min >60 [facility] Comment on above: GFR Calc Estimated GFR (MDRD) Non-Af Amer 101 mL/min >60 [facility] Comment on above: Non- GFR Calc Platelets bldOrdered By: Farooq Hester on 08-10-2023 Platelets (Bld) [#/Vol] 108 10*3/uL 150-450 [facility] Serum or plasma calcium celina urement (mass/volume)Ordered By: Calvin Hester on 08-10-2023 Calcium [Mass/Vol] 8.4 mg/dL 8.5-10.1 [facility] Serum or plasma creatinine m easurement (mass/volume)Ordered By: Calvin Hester on 08-10-2023 Creatinine [Mass/Vol] 0.61 mg/dL 0.55-1.02 [facility] Comment on above: The validity of the calculated GFR & GFRAA in patients over 70 years has not been determined. Clinical correlation is essential. Serum or plasma urea nitroge n measurement (mass/volume)Ordered By: Calvin Hester on 08-10-2023 Urea nitrogen [Mass/Vol] 18 mg/dL 7-18 [facility] Thin prep Papanicolaou smear with manual screeningOrdered By: Calvin Hester on 08-10-2023 Thin prep Papanicolaou smear with manual screening 1 5-15 [facility] Absolute lymphocyte countOrd ered By: Shahnaz Way on 07-14-2023 Lymphocytes Auto (Unsp spec) [#/Vol] 0.68 10*3/uL 0.83-4.51 [facility] Basophil percentageOrdered B y: Shahnaz Way on 07-14-2023 Basophil percentage 0 SEEN /hpf 0-5 [facility] Basophils/100 WBC (Bld) 0.2 % 0-1 [facility] Bilirubin [Mass/Vol] 0.30 mg/dL 0.20-1.00 [facility] Comment on above: For patients on eltr ombopag therapy, use of Dimension [place] TBIL is not recommended. Chloride [Moles/Vol] 103 mmol/L 98-107 [facility] Eosinophils/100 WBC (Bld) 1.3 % 0-5 [facility] Glucose [Mass/Vol] 127 mg/dL 74-106 [facility] Comment on above: Fasting Glucose resu lt greater than or equal to 126 mg/dL suggests DIABETES MELLITUS per A.D.A. criteria. Neutrophils (Bld) [#/Vol] 3.6 10*3/uL 2.0-7.7 [facility] Neutrophils/100 WBC (Bld) 76.9 % 47-70 [facility] Potassium [Moles/Vol] 3.7 mmol/L 3.5-5.1 [facility] Protein [Mass/Vol] 7.0 g/dL 6.4-8.2 [facility] Sodium [Moles/Vol] 144 mmol/L 136-145 [facility] WBC (Bld) [#/Vol] 4.6 10*3/uL 4.4-11.0 [facility] Bilirubin Test strip Ql (U)O rdered By: Shahnaz Way on 07-14-2023 Bilirubin Ql (U) Negative Negative [facility] Blood erythrocytes count (nu mber/volume)Ordered By: Shahnaz Way on 07-14-2023 RBC (Bld) [#/Vol] 3.10 10*6/uL 4.2-5.4 [facility] Blood hemoglobin measurement (mass/volume)Ordered By: Shahnaz Way on 07-14-2023 Hemoglobin (Bld) [Mass/Vol] 8.8 g/dL 12.0-15.0 [facility] Blood lymphocytes/100 leukoc ytesOrdered By: Shahnaz Way on 07-14-2023 Lymphocytes/100 WBC (Bld) 14.7 % 19-41 [facility] Blood monocytes/100 leukocyt esOrdered By: Shahnaz Way on 07-14-2023 Monocytes/100 WBC (Bld) 6.5 % 0-10 [facility] Blood platelet mean volumeOr dered By: Shahnaz Way on 07-14-2023 Platelet mean volume (Bld) [Entitic vol] 8.9 fL 6.2-12.0 [facility] Determination of erythrocyte mean corpuscular volume (MCV)Ordered By: Shahnaz Way on 07-14-2023 MCV (RBC) [Entitic vol] 101.3 fL 81-99 [facility] Hematocrit Auto (Bld) [Volum e fraction]Ordered By: Shahnaz Way on 07-14-2023 Hematocrit (Bld) [Volume fraction] 31.4 % 37-47 [facility] Ketones Test strip Ql (U)Ord ered By: Shahnaz Way on 07-14-2023 Ketones Ql (U) Negative Negative [facility] Laboratory - Chemistry and C hemistry - challengeOrdered By: Shahnaz Way on 07-14-2023 ALP [Catalytic activity/Vol] 76 U/L 45-117 [facility] ALT [Catalytic activity/Vol] 25 U/L 13-56 [facility] CO2 [Moles/Vol] 40.0 mmol/L 21.0-32.0 [facility] Globulin (S) [Mass/Vol] 4.4 g/dL 2.2-4.2 [facility] Urea nitrogen/Creatinine [Mass ratio] 37.6 mg/mg 10-20 [facility] Laboratory - Hematology and Cell countsOrdered By: Shahnaz Way on 07-14-2023 Erythrocyte distribution width (RBC) [Entitic vol] 53.1 fL 35.1-43.9 [facility] Erythrocyte distribution width (RBC) [Ratio] 14.4 % 11.6-14.6 [facility] Immature granulocytes/100 WBC (Bld) 0.400 % 0.0-0.9 [facility] Comment on above: IG% - Immature Granu locytes (promyelocytes, myelocytes and metamyelocytes) > 1% indicates that a LEFT SHIFT is Present. MCH (RBC) [Entitic mass] 28.4 pg 27.0-32.0 [facility] Nucleated RBC/100 WBC (Bld) [Ratio] 0 % 0-5 [facility] MCHC Auto (RBC) [Mass/Vol]Or dered By: Shahnaz Way on 07-14-2023 MCHC (RBC) [Mass/Vol] 28.0 g/dL 32-36 [facility] Mucus LM Ql (Urine sed)Order ed By: Shahnaz Way on 07-14-2023 Mucus Ql (Urine sed) 0 SEEN /hpf [facility] Nitrite Test strip Ql (U)Ord ered By: Shahnaz Way on 07-14-2023 Nitrite Ql (U) Negative Negative [facility] No Panel InformationOrdered By: Shahnaz Way on 07-14-2023 Estimated Creatinine Clearance Calc 45.09 ml/min [facility] Estimated GFR (MDRD) Amer 123 mL/min >60 [facility] Comment on above: GFR Calc Estimated GFR (MDRD) Non-Af Amer 102 mL/min >60 [facility] Comment on above: Non- GFR Calc Platelets bldOrdered By: Jaimee Way on 07-14-2023 Platelets (Bld) [#/Vol] 117 10*3/uL 150-450 [facility] Protein Test strip Ql (U)Ord ered By: Shahnaz Way on 07-14-2023 Protein Ql (U) 15 mg/dl Negative [facility] Serum or plasma albumin celina urement (mass/volume)Ordered By: Shahnaz Way on 07-14-2023 Albumin [Mass/Vol] 2.6 g/dL 3.2-5.0 [facility] Serum or plasma albumin/glob ulin mass ratioOrdered By: Shahnaz Way on 07-14-2023 Albumin/Globulin [Mass ratio] 0.6 {ratio} 0.9-2.4 [facility] Serum or plasma calcium celina urement (mass/volume)Ordered By: Shahnaz Way on 07-14-2023 Calcium [Mass/Vol] 8.8 mg/dL 8.5-10.1 [facility] Serum or plasma creatinine m easurement (mass/volume)Ordered By: Shahnaz Way on 07-14-2023 Creatinine [Mass/Vol] 0.61 mg/dL 0.55-1.02 [facility] Comment on above: The validity of the calculated GFR & GFRAA in patients over 70 years has not been determined. Clinical correlation is essential. Serum or plasma urea nitroge n measurement (mass/volume)Ordered By: Shahnaz Way on 07-14-2023 Urea nitrogen [Mass/Vol] 23 mg/dL 7-18 [facility] Squamous epithelial cells de tection in urine sediment by light microscopyOrdered By: Shahnaz Way on 07-14-2023 Epithelial cells.squamous LM Ql (Urine sed) 0 SEEN /hpf 5-10 [facility] Thin prep Papanicolaou smear with manual screeningOrdered By: Shahnaz Way on 07-14-2023 Thin prep Papanicolaou smear with manual screening 17 U/L 15-37 [facility] Thin prep Papanicolaou smear with manual screening 1 5-15 [facility] Urine blood detectionOrdered By: Shahnaz Way on 07-14-2023 RBC Ql (U) Negative Negative [facility] RBC Ql (U) 0-5 SEEN /hpf 0-5 [facility] Urine clarityOrdered By: Jaimee Way on 07-14-2023 Clarity (U) Clear Clear [facility] Urine color determinationOrd ered By: Shahnaz Way on 07-14-2023 Color (U) Yellow Yellow [facility] Urine glucose detectionOrder ed By: Shahnaz Way on 07-14-2023 Glucose Ql (U) Normal mg/dl Normal [facility] Urine leukocyte esterase det ection by dipstickOrdered By: Shahnaz Way on 07-14-2023 Leukocyte esterase Test strip Ql (U) Negative Negative [facility] Urine pHOrdered By: Shahnaz hoffman on 07-14-2023 pH (U) 6.0 [pH] 5.0 - 8.0 [facility] Urine sediment bacteria coun t by microscopy (number/high power field)Ordered By: Shahnaz Way on 07-14-2023 Bacteria LM.HPF (Urine sed) [#/Area] 0 /[HPF] None Seen [facility] Urine specific gravity measu rementOrdered By: Shahnaz Way on 07-14-2023 Specific gravity (U) [Rel density] 1.020 1.002-1.030 [facility] Urobilinogen Auto test strip Ql (U)Ordered By: Shahnaz Way on 07-14-2023 Urobilinogen Ql (U) Normal mg/dl Normal [facility] Basophil percentageOrdered B y: Jonathan Dillard on 06-28-2023 Bilirubin [Mass/Vol] 0.40 mg/dL 0.20-1.00 [facility] Comment on above: For patients on eltr ombopag therapy, use of Dimension [place] TBIL is not recommended. Chloride [Moles/Vol] 101 mmol/L 98-107 [facility] Glucose [Mass/Vol] 117 mg/dL 74-106 [facility] Comment on above: Fasting Glucose resu lt from 100 to 125 mg/dL suggests IMPAIRED HOMEOSTASIS per A.D.A. criteria. Potassium [Moles/Vol] 3.9 mmol/L 3.5-5.1 [facility] Protein [Mass/Vol] 6.8 g/dL 6.4-8.2 [facility] Sodium [Moles/Vol] 145 mmol/L 136-145 [facility] WBC (Bld) [#/Vol] 4.6 10*3/uL 4.4-11.0 [facility] Blood erythrocytes count (nu mber/volume)Ordered By: Jonathan Dillard on 06-28-2023 RBC (Bld) [#/Vol] 3.02 10*6/uL 4.2-5.4 [facility] Blood hemoglobin measurement (mass/volume)Ordered By: Jonathan Dillard on 06-28-2023 Hemoglobin (Bld) [Mass/Vol] 8.6 g/dL 12.0-15.0 [facility] Blood platelet mean volumeOr dered By: Jonathan Dillard on 06-28-2023 Platelet mean volume (Bld) [Entitic vol] 9.0 fL 6.2-12.0 [facility] Determination of erythrocyte mean corpuscular volume (MCV)Ordered By: Jonathan Dillard on 06-28-2023 MCV (RBC) [Entitic vol] 101.7 fL 81-99 [facility] Hematocrit Auto (Bld) [Volum e fraction]Ordered By: Jonathan Dillard on 06-28-2023 Hematocrit (Bld) [Volume fraction] 30.7 % 37-47 [facility] Laboratory - Chemistry and C hemistry - challengeOrdered By: Jonathan Dillard on 06-28-2023 ALP [Catalytic activity/Vol] 72 U/L 45-117 [facility] ALT [Catalytic activity/Vol] 16 U/L 13-56 [facility] CO2 [Moles/Vol] 43.0 mmol/L 21.0-32.0 [facility] Globulin (S) [Mass/Vol] 4.2 g/dL 2.2-4.2 [facility] Lipase [Catalytic activity/Vol] 18 U/L 13-75 [facility] Comment on above: Please note:LIPASE r evised reference range effective 23. New Lipase methodology. Expected to produce lower values than the previous assay method. NEW Reference Range: 13 - 75 U/L Urea nitrogen/Creatinine [Mass ratio] 32.5 mg/mg 10-20 [facility] Laboratory - Hematology and Cell countsOrdered By: Jonathan Dillard on 06-28-2023 Erythrocyte distribution width (RBC) [Entitic vol] 53.0 fL 35.1-43.9 [facility] Erythrocyte distribution width (RBC) [Ratio] 14.1 % 11.6-14.6 [facility] MCH (RBC) [Entitic mass] 28.5 pg 27.0-32.0 [facility] MCHC Auto (RBC) [Mass/Vol]Or dered By: Jonathan Dillard on 06-28-2023 MCHC (RBC) [Mass/Vol] 28.0 g/dL 32-36 [facility] No Panel InformationOrdered By: Jonathan Dillard on 08-15-2023 Estimated GFR (MDRD) Amer 115 mL/min >60 [facility] Comment on above: GFR Calc Estimated GFR (MDRD) Non-Af Amer 95 mL/min >60 [facility] Comment on above: Non- GFR Calc Platelets bldOrdered By: Mervat Dillard on 06-28-2023 Platelets (Bld) [#/Vol] 111 10*3/uL 150-450 [facility] Serum or plasma albumin celina urement (mass/volume)Ordered By: Jonathan Dillard on 06-28-2023 Albumin [Mass/Vol] 2.6 g/dL 3.2-5.0 [facility] Serum or plasma albumin/glob ulin mass ratioOrdered By: Jonathan Dillard on 06-28-2023 Albumin/Globulin [Mass ratio] 0.6 {ratio} 0.9-2.4 [facility] Serum or plasma calcium celina urement (mass/volume)Ordered By: Jonathan Dillard on 06-28-2023 Calcium [Mass/Vol] 9.0 mg/dL 8.5-10.1 [facility] Serum or plasma creatinine m easurement (mass/volume)Ordered By: Jonathan Dillard on 06-28-2023 Creatinine [Mass/Vol] 0.65 mg/dL 0.55-1.02 [facility] Comment on above: The validity of the calculated GFR & GFRAA in patients over 70 years has not been determined. Clinical correlation is essential. Serum or plasma urea nitroge n measurement (mass/volume)Ordered By: Jonathan Dillard on 06-28-2023 Urea nitrogen [Mass/Vol] 21 mg/dL 7-18 [facility] Thin prep Papanicolaou smear with manual screeningOrdered By: Jonathan Dillard on 06-28-2023 Thin prep Papanicolaou smear with manual screening 12 U/L 15-37 [facility] Thin prep Papanicolaou smear with manual screening 1 -15 [facility] Basophil percentageOrdered B y: Jonathan Dillard on 06-13-2023 Bilirubin [Mass/Vol] 0.40 mg/dL 0.20-1.00 [facility] Comment on above: For patients on eltr ombopag therapy, use of Dimension [place] TBIL is not recommended. Chloride [Moles/Vol] 104 mmol/L 98-107 [facility] Glucose [Mass/Vol] 114 mg/dL 74-106 [facility] Comment on above: Fasting Glucose resu lt from 100 to 125 mg/dL suggests IMPAIRED HOMEOSTASIS per A.D.A. criteria. Potassium [Moles/Vol] 4.0 mmol/L 3.5-5.1 [facility] Protein [Mass/Vol] 6.8 g/dL 6.4-8.2 [facility] Sodium [Moles/Vol] 146 mmol/L 136-145 [facility] WBC (Bld) [#/Vol] 4.5 10*3/uL 4.4-11.0 [facility] Blood erythrocytes count (nu mber/volume)Ordered By: Jonathan Dillard on 06-13-2023 RBC (Bld) [#/Vol] 3.13 10*6/uL 4.2-5.4 [facility] Blood hemoglobin measurement (mass/volume)Ordered By: Jonathan Dillard on 06-13-2023 Hemoglobin (Bld) [Mass/Vol] 9.0 g/dL 12.0-15.0 [facility] Blood platelet mean volumeOr dered By: Jonathan Dillard on 06-13-2023 Platelet mean volume (Bld) [Entitic vol] 9.1 fL 6.2-12.0 [facility] Determination of erythrocyte mean corpuscular volume (MCV)Ordered By: Jonathan Dillard on 06-13-2023 MCV (RBC) [Entitic vol] 100.6 fL 81-99 [facility] Hematocrit Auto (Bld) [Volum e fraction]Ordered By: Jonathan Dillard on 06-13-2023 Hematocrit (Bld) [Volume fraction] 31.5 % 37-47 [facility] Laboratory - Chemistry and C hemistry - challengeOrdered By: Jonathan Dillard on 06-13-2023 ALP [Catalytic activity/Vol] 72 U/L 45-117 [facility] ALT [Catalytic activity/Vol] 14 U/L 13-56 [facility] CO2 [Moles/Vol] 42.0 mmol/L 21.0-32.0 [facility] Globulin (S) [Mass/Vol] 4.2 g/dL 2.2-4.2 [facility] Urea nitrogen/Creatinine [Mass ratio] 30.8 mg/mg 10-20 [facility] Laboratory - Hematology and Cell countsOrdered By: Jonathan Dillard on 06-13-2023 Erythrocyte distribution width (RBC) [Entitic vol] 51.3 fL 35.1-43.9 [facility] Erythrocyte distribution width (RBC) [Ratio] 13.9 % 11.6-14.6 [facility] MCH (RBC) [Entitic mass] 28.8 pg 27.0-32.0 [facility] MCHC Auto (RBC) [Mass/Vol]Or dered By: Jonathan Dillard on 06-13-2023 MCHC (RBC) [Mass/Vol] 28.6 g/dL 32-36 [facility] No Panel InformationOrdered By: Jonathan Dillard on 06-13-2023 Estimated GFR (MDRD) Amer 115 mL/min >60 [facility] Comment on above: GFR Calc Estimated GFR (MDRD) Non-Af Amer 95 mL/min >60 [facility] Comment on above: Non- GFR Calc Platelets bldOrdered By: Mervat Dillard on 06-13-2023 Platelets (Bld) [#/Vol] 112 10*3/uL 150-450 [facility] Serum or plasma albumin celina urement (mass/volume)Ordered By: Jonathan Dillard on 06-13-2023 Albumin [Mass/Vol] 2.6 g/dL 3.2-5.0 [facility] Serum or plasma albumin/glob ulin mass ratioOrdered By: Jonathan Dillard on 06-13-2023 Albumin/Globulin [Mass ratio] 0.6 {ratio} 0.9-2.4 [facility] Serum or plasma calcium celina urement (mass/volume)Ordered By: Jonathan Dillard on 06-13-2023 Calcium [Mass/Vol] 8.9 mg/dL 8.5-10.1 [facility] Serum or plasma creatinine m easurement (mass/volume)Ordered By: Jonathan Dillard on 06-13-2023 Creatinine [Mass/Vol] 0.65 mg/dL 0.55-1.02 [facility] Comment on above: The validity of the calculated GFR & GFRAA in patients over 70 years has not been determined. Clinical correlation is essential. Serum or plasma urea nitroge n measurement (mass/volume)Ordered By: Jonathan Dillard on 06-13-2023 Urea nitrogen [Mass/Vol] 20 mg/dL 7-18 [facility] Thin prep Papanicolaou smear with manual screeningOrdered By: Jonathan Dillard on 06-13-2023 Thin prep Papanicolaou smear with manual screening 11 U/L 15-37 [facility] Thin prep Papanicolaou smear with manual screening 0 5-15 [facility] Absolute lymphocyte countOrd ered By: Delfin Jeffries on 05-04-2023 Lymphocytes Auto (Unsp spec) [#/Vol] 0.78 10*3/uL 0.83-4.51 [facility] Basophil percentageOrdered B y: Delfin Jeffries on 05-04-2023 Basophils/100 WBC (Bld) 0.2 % 0-1 [facility] Bilirubin [Mass/Vol] 0.40 mg/dL 0.20-1.00 [facility] Comment on above: For patients on eltr ombopag therapy, use of Dimension [place] TBIL is not recommended. Chloride [Moles/Vol] 104 mmol/L 98-107 [facility] Eosinophils/100 WBC (Bld) 1.3 % 0-5 [facility] Glucose [Mass/Vol] 175 mg/dL 74-106 [facility] Comment on above: Fasting Glucose resu lt greater than or equal to 126 mg/dL suggests DIABETES MELLITUS per A.D.A. criteria. LDH [Catalytic activity/Vol] 125 U/L 84-246 [facility] Neutrophils (Bld) [#/Vol] 4.2 10*3/uL 2.0-7.7 [facility] Neutrophils/100 WBC (Bld) 79.1 % 47-70 [facility] Potassium [Moles/Vol] 4.0 mmol/L 3.5-5.1 [facility] Protein [Mass/Vol] 7.5 g/dL 6.4-8.2 [facility] Sodium [Moles/Vol] 144 mmol/L 136-145 [facility] WBC (Bld) [#/Vol] 5.3 10*3/uL 4.4-11.0 [facility] Blood erythrocytes count (nu mber/volume)Ordered By: Delfin Jeffries on 05-04-2023 RBC (Bld) [#/Vol] 3.49 10*6/uL 4.2-5.4 [facility] Blood hemoglobin measurement (mass/volume)Ordered By: Delfin Jeffries on 05-04-2023 Hemoglobin (Bld) [Mass/Vol] 10.2 g/dL 12.0-15.0 [facility] Blood lymphocytes/100 leukoc ytesOrdered By: Delfin Jeffries on 05-04-2023 Lymphocytes/100 WBC (Bld) 14.7 % 19-41 [facility] Blood monocytes/100 leukocyt esOrdered By: Delfin Jeffries on 05-04-2023 Monocytes/100 WBC (Bld) 4.3 % 0-10 [facility] Blood platelet mean volumeOr dered By: Delfin Jeffries on 05-04-2023 Platelet mean volume (Bld) [Entitic vol] 8.6 fL 6.2-12.0 [facility] Determination of erythrocyte mean corpuscular volume (MCV)Ordered By: Delfin Jeffries on 05-04-2023 MCV (RBC) [Entitic vol] 99.7 fL 81-99 [facility] Hematocrit Auto (Bld) [Volum e fraction]Ordered By: Delfin Jeffries on 05-04-2023 Hematocrit (Bld) [Volume fraction] 34.8 % 37-47 [facility] Hemoglobin in reticulocytes (mass per reticulocyte)Ordered By: Delfin Jeffries on 05-04-2023 Hemoglobin (Reticulocytes) [Entitic mass] 31.0 pg 30-35 [facility] Iron measurement (mass/mass) Ordered By: Delfin Jeffries on 05-04-2023 Iron (Unsp spec) [Mass/Mass] 42 ug/dL 50-170 [facility] Laboratory - Chemistry and C hemistry - challengeOrdered By: Delfin Jeffries on 05-04-2023 ALP [Catalytic activity/Vol] 84 U/L 45-117 [facility] ALT [Catalytic activity/Vol] 21 U/L 13-56 [facility] CO2 [Moles/Vol] 39.0 mmol/L 21.0-32.0 [facility] Globulin (S) [Mass/Vol] 4.5 g/dL 2.2-4.2 [facility] Urea nitrogen/Creatinine [Mass ratio] 32.1 mg/mg 10-20 [facility] Laboratory - Hematology and Cell countsOrdered By: Delfin Jeffries on 05-04-2023 Erythrocyte distribution width (RBC) [Entitic vol] 51.9 fL 35.1-43.9 [facility] Erythrocyte distribution width (RBC) [Ratio] 14.6 % 11.6-14.6 [facility] Immature granulocytes/100 WBC (Bld) 0.400 % 0.0-0.9 [facility] Comment on above: IG% - Immature Granu locytes (promyelocytes, myelocytes and metamyelocytes) > 1% indicates that a LEFT SHIFT is Present. MCH (RBC) [Entitic mass] 29.2 pg 27.0-32.0 [facility] Nucleated RBC/100 WBC (Bld) [Ratio] 0 % 0-5 [facility] MCHC Auto (RBC) [Mass/Vol]Or dered By: Delfin Jeffries on 05-04-2023 MCHC (RBC) [Mass/Vol] 29.3 g/dL 32-36 [facility] No Panel InformationOrdered By: Delfin Jeffries on 05-04-2023 Estimated GFR (MDRD) Amer 103 mL/min >60 [facility] Comment on above: GFR Calc Estimated GFR (MDRD) Non-Af Amer 85 mL/min >60 [facility] Comment on above: Non- GFR Calc Immature Reticulocyte Fraction 26.90 % 3.00-15.90 [facility] Reticulocyte Count 2.39 % 0.5-1.5 [facility] Total Iron Binding Capacity 197 ug/dL 250-450 [facility] Platelets bldOrdered By: Luciano Jeffries on 05-04-2023 Platelets (Bld) [#/Vol] 107 10*3/uL 150-450 [facility] Serum or plasma albumin celina urement (mass/volume)Ordered By: Delfin Jeffries on 05-04-2023 Albumin [Mass/Vol] 3.0 g/dL 3.2-5.0 [facility] Serum or plasma albumin/glob ulin mass ratioOrdered By: Delfin Jeffries on 05-04-2023 Albumin/Globulin [Mass ratio] 0.7 {ratio} 0.9-2.4 [facility] Serum or plasma calcium celina urement (mass/volume)Ordered By: Delfin Jeffries on 05-04-2023 Calcium [Mass/Vol] 8.7 mg/dL 8.5-10.1 [facility] Serum or plasma creatinine m easurement (mass/volume)Ordered By: Delfin Benson on 05-04-2023 Creatinine [Mass/Vol] 0.72 mg/dL 0.55-1.02 [facility] Comment on above: The validity of the calculated GFR & GFRAA in patients over 70 years has not been determined. Clinical correlation is essential. Serum or plasma ferritin carter surement (mass/volume)Ordered By: Delfin Jeffries on 05-04-2023 Ferritin [Mass/Vol] 192 ng/mL 8-252 [facility] Serum or plasma iron saturat ion measurement (mass fraction)Ordered By: Delfin Kelley on 05-04-2023 Iron saturation [Mass fraction] 21.3 % 15.0-55.0 [facility] Serum or plasma urea nitroge n measurement (mass/volume)Or[facility]: [facility] Urea nitrogen [Mass/Vol] 23 mg/dL 7-18 [facility] Thin prep Papanicolaou smear with manual screeningOrdered By: Delfin Jeffries on 05-04-2023 Thin prep Papanicolaou smear with manual screening 16 U/L 15-37 [facility] Thin prep Papanicolaou smear with manual screening 1 5-15 [facility] Absolute lymphocyte countOrd ered By: Dr. Vela on 04-19-2023 Lymphocytes Auto (Unsp spec) [#/Vol] 0.71 10*3/uL 0.83-4.51 [facility] Basophil percentageOrdered B y: Dr. Vela on 04-19-2023 Basophil percentage 0 SEEN /hpf 0-5 [facility] Basophils/100 WBC (Bld) 0.2 % 0-1 [facility] Bilirubin [Mass/Vol] 0.40 mg/dL 0.20-1.00 [facility] Comment on above: For patients on eltr ombopag therapy, use of Dimension [place] TBIL is not recommended. Chloride [Moles/Vol] 102 mmol/L 98-107 [facility] Eosinophils/100 WBC (Bld) 0.9 % 0-5 [facility] Glucose [Mass/Vol] 108 mg/dL 74-106 [facility] Comment on above: Fasting Glucose resu lt from 100 to 125 mg/dL suggests IMPAIRED HOMEOSTASIS per A.D.A. criteria. Neutrophils (Bld) [#/Vol] 5.2 10*3/uL 2.0-7.7 [facility] Neutrophils/100 WBC (Bld) 81.7 % 47-70 [facility] Potassium [Moles/Vol] 3.9 mmol/L 3.5-5.1 [facility] Protein [Mass/Vol] 7.7 g/dL 6.4-8.2 [facility] Sodium [Moles/Vol] 146 mmol/L 136-145 [facility] WBC (Bld) [#/Vol] 6.3 10*3/uL 4.4-11.0 [facility] Bilirubin Test strip Ql (U)O rdered By: Dr. Vela on 04-19-2023 Bilirubin Ql (U) Negative Negative [facility] Blood erythrocytes count (nu mber/volume)Ordered By: Dr. Vela on 04-19-2023 RBC (Bld) [#/Vol] 3.35 10*6/uL 4.2-5.4 [facility] Blood hemoglobin measurement (mass/volume)Ordered By: Dr. Vela on 04-19-2023 Hemoglobin (Bld) [Mass/Vol] 9.6 g/dL 12.0-15.0 [facility] Blood lymphocytes/100 leukoc ytesOrdered By: Dr. Vela on 04-19-2023 Lymphocytes/100 WBC (Bld) 11.2 % 19-41 [facility] Blood monocytes/100 leukocyt esOrdered By: Dr. Vela on 04-19-2023 Monocytes/100 WBC (Bld) 5.5 % 0-10 [facility] Blood platelet mean volumeOr dered By: Dr. Vela on 04-19-2023 Platelet mean volume (Bld) [Entitic vol] 9.5 fL 6.2-12.0 [facility] Determination of erythrocyte mean corpuscular volume (MCV)Ordered By: Dr. eVla on 04-19-2023 MCV (RBC) [Entitic vol] 98.5 fL 81-99 [facility] Hematocrit Auto (Bld) [Volum e fraction]Ordered By: Dr. Vela on 04-19-2023 Hematocrit (Bld) [Volume fraction] 33.0 % 37-47 [facility] Ketones Test strip Ql (U)Ord ered By: Dr. Vela on 04-19-2023 Ketones Ql (U) Negative Negative [facility] Laboratory - Chemistry and C hemistry - challengeOrdered By: Dr. Vela on 04-19-2023 ALP [Catalytic activity/Vol] 96 U/L 45-117 [facility] ALT [Catalytic activity/Vol] 21 U/L 13-56 [facility] CO2 [Moles/Vol] 41.0 mmol/L 21.0-32.0 [facility] Globulin (S) [Mass/Vol] 4.6 g/dL 2.2-4.2 [facility] Urea nitrogen/Creatinine [Mass ratio] 36.2 mg/mg 10-20 [facility] Laboratory - Hematology and Cell countsOrdered By: Dr. Vela on 04-19-2023 Erythrocyte distribution width (RBC) [Entitic vol] 50.7 fL 35.1-43.9 [facility] Erythrocyte distribution width (RBC) [Ratio] 14.2 % 11.6-14.6 [facility] Immature granulocytes/100 WBC (Bld) 0.500 % 0.0-0.9 [facility] Comment on above: IG% - Immature Granu locytes (promyelocytes, myelocytes and metamyelocytes) > 1% indicates that a LEFT SHIFT is Present. MCH (RBC) [Entitic mass] 28.7 pg 27.0-32.0 [facility] Nucleated RBC/100 WBC (Bld) [Ratio] 0 % 0-5 [facility] MCHC Auto (RBC) [Mass/Vol]Or dered By: Dr. Vela on 04-19-2023 MCHC (RBC) [Mass/Vol] 29.1 g/dL 32-36 [facility] Mucus LM Ql (Urine sed)Order ed By: Dr. Vela on 04-19-2023 Mucus Ql (Urine sed) 0 SEEN /hpf [facility] Nitrite Test strip Ql (U)Ord ered By: Dr. Vela on 04-19-2023 Nitrite Ql (U) Negative Negative [facility] No Panel InformationOrdered By: Dr. Vela on 04-19-2023 Estimated Creatinine Clearance Calc 45.09 ml/min [facility] Estimated GFR (MDRD) Amer 118 mL/min >60 [facility] Comment on above: GFR Calc Estimated GFR (MDRD) Non-Af Amer 97 mL/min >60 [facility] Comment on above: Non- GFR Calc Platelets bldOrdered By: Dr. Vela on 04-19-2023 Platelets (Bld) [#/Vol] 103 10*3/uL 150-450 [facility] Protein Test strip Ql (U)Ord ered By: Dr. Vela on 04-19-2023 Protein Ql (U) Negative Negative [facility] Serum or plasma albumin celina urement (mass/volume)Ordered By: Dr. Vela on 04-19-2023 Albumin [Mass/Vol] 3.1 g/dL 3.2-5.0 [facility] Serum or plasma albumin/glob ulin mass ratioOrdered By: Dr. Vela on 04-19-2023 Albumin/Globulin [Mass ratio] 0.7 {ratio} 0.9-2.4 [facility] Serum or plasma calcium celina urement (mass/volume)Ordered By: Dr. Vela on 04-19-2023 Calcium [Mass/Vol] 9.3 mg/dL 8.5-10.1 [facility] Serum or plasma creatinine m easurement (mass/volume)Ordered By: Dr. Vela on 04-19-2023 Creatinine [Mass/Vol] 0.64 mg/dL 0.55-1.02 [facility] Comment on above: The validity of the calculated GFR & GFRAA in patients over 70 years has not been determined. Clinical correlation is essential. Serum or plasma urea nitroge n measurement (mass/volume)Ordered By: Dr. Vela on 04-19-2023 Urea nitrogen [Mass/Vol] 23 mg/dL 7-18 [facility] Squamous epithelial cells de tection in urine sediment by light microscopyOrdered By: Dr. Vela on 04-19-2023 Epithelial cells.squamous LM Ql (Urine sed) 0 SEEN /hpf 5-10 [facility] Thin prep Papanicolaou smear with manual screeningOrdered By: Dr. Vela on 04-19-2023 Thin prep Papanicolaou smear with manual screening 16 U/L 15-37 [facility] Thin prep Papanicolaou smear with manual screening 3 5-15 [facility] Urine blood detectionOrdered By: Dr. Vela on 04-19-2023 RBC Ql (U) Negative Negative [facility] RBC Ql (U) 0 SEEN /hpf 0-5 [facility] Urine clarityOrdered By: Dr. Vela on 04-19-2023 Clarity (U) Clear Clear [facility] Urine color determinationOrd ered By: Dr. Vela on 04-19-2023 Color (U) Yellow Yellow [facility] Urine glucose detectionOrder ed By: Dr. Vela on 04-19-2023 Glucose Ql (U) Normal mg/dl Normal [facility] Urine leukocyte esterase det ection by dipstickOrdered By: Dr. Vela on 04-19-2023 Leukocyte esterase Test strip Ql (U) Negative Negative [facility] Urine pHOrdered By: Dr. Isaias barkley on 04-19-2023 pH (U) 6.5 [pH] 5.0 - 8.0 [facility] Urine sediment bacteria coun t by microscopy (number/high power field)Ordered By: Dr. Vela on 04-19-2023 Bacteria LM.HPF (Urine sed) [#/Area] 0 /[HPF] None Seen [facility] Urine specific gravity measu rementOrdered By: Dr. Vela on 04-19-2023 Specific gravity (U) [Rel density] 1.010 1.002-1.030 [facility] Urobilinogen Auto test strip Ql (U)Ordered By: Dr. Vela on 04-19-2023 Urobilinogen Ql (U) Normal mg/dl Normal [facility] Culture, urineOrdered By: Sutherland Deperrletty on 04-15-2023 Bacteria identified Cx Nom (U) Presumptive E. coli [facility] Bacteria identified Cx Nom (U) Klebsiella pneumoniae sp pneum [facility] Basophil percentageOrdered B y: Jonathan Dillard on 04-12-2023 Basophil percentage 0-5 SEEN /hpf 0-5 [facility] Bilirubin [Mass/Vol] 0.50 mg/dL 0.20-1.00 [facility] Comment on above: For patients on eltr ombopag therapy, use of Dimension [place] TBIL is not recommended. Chloride [Moles/Vol] 102 mmol/L 98-107 [facility] Glucose [Mass/Vol] 122 mg/dL 74-106 [facility] Comment on above: Fasting Glucose resu lt from 100 to 125 mg/dL suggests IMPAIRED HOMEOSTASIS per A.D.A. criteria. Potassium [Moles/Vol] 3.7 mmol/L 3.5-5.1 [facility] Protein [Mass/Vol] 6.9 g/dL 6.4-8.2 [facility] Sodium [Moles/Vol] 145 mmol/L 136-145 [facility] WBC (Bld) [#/Vol] 5.1 10*3/uL 4.4-11.0 [facility] Bilirubin Test strip Ql (U)O rdered By: Jonathan Dilalrd on 04-12-2023 Bilirubin Ql (U) Negative Negative [facility] Blood erythrocytes count (nu mber/volume)Ordered By: Jonathan Dillard on 04-12-2023 RBC (Bld) [#/Vol] 3.16 10*6/uL 4.2-5.4 [facility] Blood hemoglobin measurement (mass/volume)Ordered By: Jonathan Dillard on 04-12-2023 Hemoglobin (Bld) [Mass/Vol] 8.9 g/dL 12.0-15.0 [facility] Blood platelet mean volumeOr dered By: Jontahan Dillard on 04-12-2023 Platelet mean volume (Bld) [Entitic vol] 9.1 fL 6.2-12.0 [facility] Culture, urineOrdered By: Higuera on 04-12-2023 Bacteria identified Cx Nom (U) Presumptive E. coli [facility] Bacteria identified Cx Nom (U) Klebsiella pneumoniae sp pneum [facility] Determination of erythrocyte mean corpuscular volume (MCV)Ordered By: Jonathan Dillard on 04-12-2023 MCV (RBC) [Entitic vol] 99.7 fL 81-99 [facility] Hematocrit Auto (Bld) [Volum e fraction]Ordered By: Jonathan Dillard on 04-12-2023 Hematocrit (Bld) [Volume fraction] 31.5 % 37-47 [facility] Ketones Test strip Ql (U)Ord ered By: Jonathan Dillard on 04-12-2023 Ketones Ql (U) Negative Negative [facility] Laboratory - Chemistry and C hemistry - challengeOrdered By: Jonathan Dillard on 04-12-2023 ALP [Catalytic activity/Vol] 83 U/L 45-117 [facility] ALT [Catalytic activity/Vol] 20 U/L 13-56 [facility] CO2 [Moles/Vol] 42.0 mmol/L 21.0-32.0 [facility] Globulin (S) [Mass/Vol] 4.1 g/dL 2.2-4.2 [facility] Urea nitrogen/Creatinine [Mass ratio] 34.6 mg/mg 10-20 [facility] Laboratory - Hematology and Cell countsOrdered By: Jonathan Dillard on 04-12-2023 Erythrocyte distribution width (RBC) [Entitic vol] 53.0 fL 35.1-43.9 [facility] Erythrocyte distribution width (RBC) [Ratio] 14.5 % 11.6-14.6 [facility] MCH (RBC) [Entitic mass] 28.2 pg 27.0-32.0 [facility] MCHC Auto (RBC) [Mass/Vol]Or dered By: Jonathan Dillard on 04-12-2023 MCHC (RBC) [Mass/Vol] 28.3 g/dL 32-36 [facility] Mucus LM Ql (Urine sed)Order ed By: Jonathan Dillard on 04-12-2023 Mucus Ql (Urine sed) 0 SEEN /hpf [facility] Nitrite Test strip Ql (U)Ord ered By: Jonathan Dillard on 04-12-2023 Nitrite Ql (U) Negative Negative [facility] No Panel InformationOrdered By: Jonathan Dillard on 04-12-2023 Estimated GFR (MDRD) Amer 112 mL/min >60 [facility] Comment on above: GFR Calc Estimated GFR (MDRD) Non-Af Amer 93 mL/min >60 [facility] Comment on above: Non- GFR Calc Platelets bldOrdered By: Mervat Dillard on 04-12-2023 Platelets (Bld) [#/Vol] 115 10*3/uL 150-450 [facility] Protein Test strip Ql (U)Ord ered By: Jonathan Dillard on 04-12-2023 Protein Ql (U) Negative Negative [facility] Serum or plasma albumin celina urement (mass/volume)Ordered By: Jonathan Dillard on 04-12-2023 Albumin [Mass/Vol] 2.8 g/dL 3.2-5.0 [facility] Serum or plasma albumin/glob ulin mass ratioOrdered By: Jonathan Dillard on 04-12-2023 Albumin/Globulin [Mass ratio] 0.7 {ratio} 0.9-2.4 [facility] Serum or plasma calcium celina urement (mass/volume)Ordered By: Jonathan Dillard on 04-12-2023 Calcium [Mass/Vol] 9.0 mg/dL 8.5-10.1 [facility] Serum or plasma creatinine m easurement (mass/volume)Ordered By: Jonathan Dillard on 04-12-2023 Creatinine [Mass/Vol] 0.66 mg/dL 0.55-1.02 [facility] Comment on above: The validity of the calculated GFR & GFRAA in patients over 70 years has not been determined. Clinical correlation is essential. Serum or plasma urea nitroge n measurement (mass/volume)Ordered By: Jonathan Dillard on 04-12-2023 Urea nitrogen [Mass/Vol] 23 mg/dL 7-18 [facility] Squamous epithelial cells de tection in urine sediment by light microscopyOrdered By: Jonathan Dillard on 04-12-2023 Epithelial cells.squamous LM Ql (Urine sed) 0-5 SEEN /hpf 5-10 [facility] Thin prep Papanicolaou smear with manual screeningOrdered By: Jonathan Dillard on 04-12-2023 Thin prep Papanicolaou smear with manual screening 14 U/L 15-37 [facility] Thin prep Papanicolaou smear with manual screening 1 5-15 [facility] Urine blood detectionOrdered By: Jonathan Dillard on 04-12-2023 RBC Ql (U) Negative Negative [facility] RBC Ql (U) 0-5 SEEN /hpf 0-5 [facility] Urine clarityOrdered By: Mervat Dillard on 04-12-2023 Clarity (U) Clear Clear [facility] Urine color determinationOrd ered By: Jonathan Dillard on 04-12-2023 Color (U) Yellow Yellow [facility] Urine glucose detectionOrder ed By: Jonathan Dillard on 04-12-2023 Glucose Ql (U) Normal mg/dl Normal [facility] Urine leukocyte esterase det ection by dipstickOrdered By: Jonathan Dillard on 04-12-2023 Leukocyte esterase Test strip Ql (U) 25 /ul Negative [facility] Urine pHOrdered By: Jonathan ramirez on 04-12-2023 pH (U) 5.0 [pH] 5.0 - 8.0 [facility] Urine sediment bacteria coun t by microscopy (number/high power field)Ordered By: Jonathan Dillard on 04-12-2023 Bacteria LM.HPF (Urine sed) [#/Area] 0 /[HPF] None Seen [facility] Urine specific gravity measu rementOrdered By: Jonathan Dillard on 04-12-2023 Specific gravity (U) [Rel density] 1.020 1.002-1.030 [facility] Urobilinogen Auto test strip Ql (U)Ordered By: Jonathan Dillard on 04-12-2023 Urobilinogen Ql (U) Normal mg/dl Normal [facility] Basophil percentageOrdered B y: Jonathan Dillard on 03-28-2023 WBC (Bld) [#/Vol] 4.3 10*3/uL 4.4-11.0 [facility] Blood erythrocytes count (nu mber/volume)Ordered By: Jonathan Dillard on 03-28-2023 RBC (Bld) [#/Vol] 3.38 10*6/uL 4.2-5.4 [facility] Blood hemoglobin measurement (mass/volume)Ordered By: Jonathan Dillard on 03-28-2023 Hemoglobin (Bld) [Mass/Vol] 9.5 g/dL 12.0-15.0 [facility] Blood platelet mean volumeOr dered By: Jonathan Dillard on 03-28-2023 Platelet mean volume (Bld) [Entitic vol] 9.3 fL 6.2-12.0 [facility] Determination of erythrocyte mean corpuscular volume (MCV)Ordered By: Jonathan Dillard on 03-28-2023 MCV (RBC) [Entitic vol] 100.6 fL 81-99 [facility] Hematocrit Auto (Bld) [Volum e fraction]Ordered By: Jonathan Dillard on 03-28-2023 Hematocrit (Bld) [Volume fraction] 34.0 % 37-47 [facility] Laboratory - Hematology and Cell countsOrdered By: Jonathan Dillard on 03-28-2023 Erythrocyte distribution width (RBC) [Entitic vol] 54.0 fL 35.1-43.9 [facility] Erythrocyte distribution width (RBC) [Ratio] 14.7 % 11.6-14.6 [facility] MCH (RBC) [Entitic mass] 28.1 pg 27.0-32.0 [facility] MCHC Auto (RBC) [Mass/Vol]Or dered By: Jonathan Dillard on 03-28-2023 MCHC (RBC) [Mass/Vol] 27.9 g/dL 32-36 [facility] Platelets bldOrdered By: Mervat Dillard on 03-28-2023 Platelets (Bld) [#/Vol] 116 10*3/uL 150-450 [facility] Absolute lymphocyte countOrd ered By: Dr. Jeffries on 03-09-2023 Lymphocytes Auto (Unsp spec) [#/Vol] 0.69 10*3/uL 0.83-4.51 [facility] Basophil percentageOrdered B y: Dr. Jeffries on 03-09-2023 Basophil percentage 3.0 mg/dL 2.5-4.9 [facility] Basophils/100 WBC (Bld) 0.2 % 0-1 [facility] Eosinophils/100 WBC (Bld) 0.9 % 0-5 [facility] LDH [Catalytic activity/Vol] 131 U/L 84-246 [facility] Neutrophils (Bld) [#/Vol] 4.4 10*3/uL 2.0-7.7 [facility] Neutrophils/100 WBC (Bld) 80.2 % 47-70 [facility] WBC (Bld) [#/Vol] 5.5 10*3/uL 4.4-11.0 [facility] Blood erythrocytes count (nu mber/volume)Ordered By: Dr. Jeffries on 03-09-2023 RBC (Bld) [#/Vol] 3.49 10*6/uL 4.2-5.4 [facility] Blood hemoglobin measurement (mass/volume)Ordered By: Dr. Jeffries on 03-09-2023 Hemoglobin (Bld) [Mass/Vol] 9.6 g/dL 12.0-15.0 [facility] Blood lymphocytes/100 leukoc ytesOrdered By: Dr. Jeffries on 03-09-2023 Lymphocytes/100 WBC (Bld) 12.6 % 19-41 [facility] Blood monocytes/100 leukocyt esOrdered By: Dr. Jeffries on 03-09-2023 Monocytes/100 WBC (Bld) 5.7 % 0-10 [facility] Blood platelet mean volumeOr dered By: Dr. Jeffries on 03-09-2023 Platelet mean volume (Bld) [Entitic vol] 9.6 fL 6.2-12.0 [facility] Determination of erythrocyte mean corpuscular volume (MCV)Ordered By: Dr. Jeffries on 03-09-2023 MCV (RBC) [Entitic vol] 97.7 fL 81-99 [facility] Hematocrit Auto (Bld) [Volum e fraction]Ordered By: Dr. Jeffries on 03-09-2023 Hematocrit (Bld) [Volume fraction] 34.1 % 37-47 [facility] Iron measurement (mass/mass) Ordered By: Dr. Jeffries on 03-09-2023 Iron (Unsp spec) [Mass/Mass] 30 ug/dL 50-170 [facility] Laboratory - Chemistry and C hemistry - challengeOrdered By: Dr. Jeffries on 03-09-2023 Cobalamin (Vitamin B12) [Mass/Vol] 669 pg/mL 211-911 [facility] Magnesium [Mass/Vol] 2.0 mg/dL 1.6-2.6 [facility] Laboratory - Hematology and Cell countsOrdered By: Dr. Jeffries on 03-09-2023 Erythrocyte distribution width (RBC) [Entitic vol] 52.1 fL 35.1-43.9 [facility] Erythrocyte distribution width (RBC) [Ratio] 14.6 % 11.6-14.6 [facility] Immature granulocytes/100 WBC (Bld) 0.400 % 0.0-0.9 [facility] Comment on above: IG% - Immature Granu locytes (promyelocytes, myelocytes and metamyelocytes) > 1% indicates that a LEFT SHIFT is Present. MCH (RBC) [Entitic mass] 27.5 pg 27.0-32.0 [facility] Nucleated RBC/100 WBC (Bld) [Ratio] 0 % 0-5 [facility] MCHC Auto (RBC) [Mass/Vol]Or dered By: Dr. Jeffries on 03-09-2023 MCHC (RBC) [Mass/Vol] 28.2 g/dL 32-36 [facility] No Panel InformationOrdered By: Dr. Jeffries on 03-09-2023 Total Iron Binding Capacity 196 ug/dL 250-450 [facility] Platelets bldOrdered By: Dr. Jeffries on 03-09-2023 Platelets (Bld) [#/Vol] 109 10*3/uL 150-450 [facility] Serum or plasma ferritin carter surement (mass/volume)Ordered By: Dr. Jeffries on 03-09-2023 Ferritin [Mass/Vol] 67 ng/mL 8-252 [facility] Serum or plasma iron saturat ion measurement (mass fraction)Ordered By: Dr. Jeffries on 03-09-2023 Iron saturation [Mass fraction] 15.3 % 15.0-55.0 [facility] No Panel InformationOrdered By: Jonathan Dillard on 03-08-2023 CA 125 Antigen 28.1 U/mL 0.0-38.1 [facility] Comment on above: [facility] El ectrochemiluminescence Immunoassay(ECLIA)Values obtained with different assay methods or kits cannotbe used interchangeably. Results cannot be interpreted asabsolute evidence of the presence or absence of malignantdisease.Performed at: [facility] [id number] Director: Mark Woo PhD, Phone: [phone] Basophil percentageOrdered B y: Jonathan Dillard on 03-04-2023 Chloride [Moles/Vol] 102 mmol/L 98-107 [facility] Glucose [Mass/Vol] 154 mg/dL 74-106 [facility] Comment on above: Fasting Glucose resu lt greater than or equal to 126 mg/dL suggests DIABETES MELLITUS per A.D.A. criteria. Potassium [Moles/Vol] 3.5 mmol/L 3.5-5.1 [facility] Sodium [Moles/Vol] 144 mmol/L 136-145 [facility] Laboratory - Chemistry and C hemistry - challengeOrdered By: Jonathan Dillard on 03-04-2023 CO2 [Moles/Vol] 44.0 mmol/L 21.0-32.0 [facility] Urea nitrogen/Creatinine [Mass ratio] 29.9 mg/mg 10-20 [facility] No Panel InformationOrdered By: Jonathan Dillard on 03-04-2023 Estimated GFR (MDRD) Amer 111 mL/min >60 [facility] Comment on above: GFR Calc Estimated GFR (MDRD) Non-Af Amer 92 mL/min >60 [facility] Comment on above: Non- GFR Calc Serum or plasma calcium celina urement (mass/volume)Ordered By: Jonathan Dillard on 03-04-2023 Calcium [Mass/Vol] 9.0 mg/dL 8.5-10.1 [facility] Serum or plasma creatinine m easurement (mass/volume)Ordered By: Jonathan Dillard on 03-04-2023 Creatinine [Mass/Vol] 0.67 mg/dL 0.55-1.02 [facility] Comment on above: The validity of the calculated GFR & GFRAA in patients over 70 years has not been determined. Clinical correlation is essential. Serum or plasma urea nitroge n measurement (mass/volume)Ordered By: Jonathan Dillard on 03-04-2023 Urea nitrogen [Mass/Vol] 20 mg/dL 7-18 [facility] Thin prep Papanicolaou smear with manual screeningOrdered By: Jonathan Dillard on 03-04-2023 Thin prep Papanicolaou smear with manual screening -2 5-15 [facility] Basophil percentageOrdered B y: Jonathan Dillard on 02-28-2023 Chloride [Moles/Vol] 104 mmol/L 98-107 [facility] Glucose [Mass/Vol] 150 mg/dL 74-106 [facility] Comment on above: Fasting Glucose resu lt greater than or equal to 126 mg/dL suggests DIABETES MELLITUS per A.D.A. criteria. Potassium [Moles/Vol] 3.4 mmol/L 3.5-5.1 [facility] Sodium [Moles/Vol] 144 mmol/L 136-145 [facility] WBC (Bld) [#/Vol] 4.5 10*3/uL 4.4-11.0 [facility] Blood erythrocytes count (nu mber/volume)Ordered By: Jonathan Dillard on 02-28-2023 RBC (Bld) [#/Vol] 3.23 10*6/uL 4.2-5.4 [facility] Blood hemoglobin measurement (mass/volume)Ordered By: Jonathan Dillard on 02-28-2023 Hemoglobin (Bld) [Mass/Vol] 8.9 g/dL 12.0-15.0 [facility] Blood platelet mean volumeOr dered By: Jonathan Dillard on 02-28-2023 Platelet mean volume (Bld) [Entitic vol] 9.3 fL 6.2-12.0 [facility] Determination of erythrocyte mean corpuscular volume (MCV)Ordered By: Jonathan Dillard on 02-28-2023 MCV (RBC) [Entitic vol] 97.5 fL 81-99 [facility] Hematocrit Auto (Bld) [Volum e fraction]Ordered By: Jonathan Dillard on 02-28-2023 Hematocrit (Bld) [Volume fraction] 31.5 % 37-47 [facility] Laboratory - Chemistry and C hemistry - challengeOrdered By: Jonathan Dillard on 02-28-2023 CO2 [Moles/Vol] 41.0 mmol/L 21.0-32.0 [facility] Urea nitrogen/Creatinine [Mass ratio] 26.5 mg/mg 10-20 [facility] Laboratory - Hematology and Cell countsOrdered By: Jonathan Dillard on 02-28-2023 Erythrocyte distribution width (RBC) [Entitic vol] 51.0 fL 35.1-43.9 [facility] Erythrocyte distribution width (RBC) [Ratio] 14.2 % 11.6-14.6 [facility] MCH (RBC) [Entitic mass] 27.6 pg 27.0-32.0 [facility] MCHC Auto (RBC) [Mass/Vol]Or dered By: Jonathan Dillard on 02-28-2023 MCHC (RBC) [Mass/Vol] 28.3 g/dL 32-36 [facility] No Panel InformationOrdered By: Jonathan Dillard on 02-28-2023 Estimated GFR (MDRD) Amer 125 mL/min >60 [facility] Comment on above: GFR Calc Estimated GFR (MDRD) Non-Af Amer 104 mL/min >60 [facility] Comment on above: Non- GFR Calc Platelets bldOrdered By: Mervat Dillard on 02-28-2023 Platelets (Bld) [#/Vol] 130 10*3/uL 150-450 [facility] Serum or plasma calcium celina urement (mass/volume)Ordered By: Jonathan Dillard on 02-28-2023 Calcium [Mass/Vol] 8.9 mg/dL 8.5-10.1 [facility] Serum or plasma creatinine m easurement (mass/volume)Ordered By: Jonathan Dillard on 02-28-2023 Creatinine [Mass/Vol] 0.60 mg/dL 0.55-1.02 [facility] Comment on above: The validity of the calculated GFR & GFRAA in patients over 70 years has not been determined. Clinical correlation is essential. Serum or plasma urea nitroge n measurement (mass/volume)Ordered By: Jonathan Dillard on 02-28-2023 Urea nitrogen [Mass/Vol] 16 mg/dL 7-18 [facility] Thin prep Papanicolaou smear with manual screeningOrdered By: Jonathan Dillard on 02-28-2023 Thin prep Papanicolaou smear with manual screening -1 5-15 [facility] Absolute lymphocyte countOrd ered By: Dr. Jaime on 02-25-2023 Lymphocytes Auto (Unsp spec) [#/Vol] 0.74 10*3/uL 0.83-4.51 [facility] Basophil percentageOrdered B y: Dr. Jaime on 02-25-2023 Basophils/100 WBC (Bld) 0.2 % 0-1 [facility] Eosinophils/100 WBC (Bld) 1.2 % 0-5 [facility] Neutrophils (Bld) [#/Vol] 4.0 10*3/uL 2.0-7.7 [facility] Neutrophils/100 WBC (Bld) 79.1 % 47-70 [facility] WBC (Bld) [#/Vol] 5.1 10*3/uL 4.4-11.0 [facility] Bilirubin [Mass/Vol] 0.40 mg/dL 0.20-1.00 [facility] Comment on above: For patients on eltr ombopag therapy, use of Dimension [place] TBIL is not recommended. Chloride [Moles/Vol] 106 mmol/L 98-107 [facility] Glucose [Mass/Vol] 106 mg/dL 74-106 [facility] Comment on above: Fasting Glucose resu lt from 100 to 125 mg/dL suggests IMPAIRED HOMEOSTASIS per A.D.A. criteria. Potassium [Moles/Vol] 4.3 mmol/L 3.5-5.1 [facility] Protein [Mass/Vol] 7.1 g/dL 6.4-8.2 [facility] Sodium [Moles/Vol] 142 mmol/L 136-145 [facility] Blood erythrocytes count (nu mber/volume)Ordered By: Dr. Jaime on 02-25-2023 RBC (Bld) [#/Vol] 3.46 10*6/uL 4.2-5.4 [facility] Blood hemoglobin measurement (mass/volume)Ordered By: Dr. Jaime on 02-25-2023 Hemoglobin (Bld) [Mass/Vol] 9.5 g/dL 12.0-15.0 [facility] Blood lymphocytes/100 leukoc ytesOrdered By: Dr. Jaime on 02-25-2023 Lymphocytes/100 WBC (Bld) 14.7 % 19-41 [facility] Blood monocytes/100 leukocyt esOrdered By: Dr. Jaime on 02-25-2023 Monocytes/100 WBC (Bld) 4.4 % 0-10 [facility] Blood platelet mean volumeOr dered By: Dr. Jaime on 02-25-2023 Platelet mean volume (Bld) [Entitic vol] 8.7 fL 6.2-12.0 [facility] COVID-19 virus antigen assay Ordered By: Dr. Jaime on 02-25-2023 SARS-CoV-2 (COVID-19) Ag IA.rapid Ql (Resp) [facility] Determination of erythrocyte mean corpuscular volume (MCV)Ordered By: Dr. Jaime on 02-25-2023 MCV (RBC) [Entitic vol] 98.3 fL 81-99 [facility] Hematocrit Auto (Bld) [Volum e fraction]Ordered By: Dr. Jaime on 02-25-2023 Hematocrit (Bld) [Volume fraction] 34.0 % 37-47 [facility] Laboratory - Chemistry and C hemistry - challengeOrdered By: Dr. Jaime on 02-25-2023 ALP [Catalytic activity/Vol] 69 U/L 45-117 [facility] ALT [Catalytic activity/Vol] 23 U/L 13-56 [facility] CO2 [Moles/Vol] 34.0 mmol/L 21.0-32.0 [facility] Globulin (S) [Mass/Vol] 4.5 g/dL 2.2-4.2 [facility] Urea nitrogen/Creatinine [Mass ratio] 27.0 mg/mg 10-20 [facility] Laboratory - Hematology and Cell countsOrdered By: Dr. Jaime on 02-25-2023 Erythrocyte distribution width (RBC) [Entitic vol] 52.0 fL 35.1-43.9 [facility] Erythrocyte distribution width (RBC) [Ratio] 14.5 % 11.6-14.6 [facility] Immature granulocytes/100 WBC (Bld) 0.400 % 0.0-0.9 [facility] Comment on above: IG% - Immature Granu locytes (promyelocytes, myelocytes and metamyelocytes) > 1% indicates that a LEFT SHIFT is Present. MCH (RBC) [Entitic mass] 27.5 pg 27.0-32.0 [facility] Nucleated RBC/100 WBC (Bld) [Ratio] 0 % 0-5 [facility] Laboratory - Microbiology an d Antimicrobial susceptibilityOrdered By: Dr. Monique on 02-25-2023 Bacteria identified Cx Nom (Bld) No growth in 5 days. [facility] MCHC Auto (RBC) [Mass/Vol]Or dered By: Dr. Jaime on 02-25-2023 MCHC (RBC) [Mass/Vol] 27.9 g/dL 32-36 [facility] No Panel InformationOrdered By: Dr. Jaime on 02-25-2023 Estimated Creatinine Clearance Calc 53.04 ml/min [facility] Estimated GFR (MDRD) Amer 84 mL/min >60 [facility] Comment on above: GFR Calc Estimated GFR (MDRD) Non-Af Amer 69 mL/min >60 [facility] Comment on above: Non- GFR Calc Platelets bldOrdered By: Dr. Jaime on 02-25-2023 Platelets (Bld) [#/Vol] 146 10*3/uL 150-450 [facility] Serum or plasma albumin celina urement (mass/volume)Ordered By: Dr. Jaime on 02-25-2023 Albumin [Mass/Vol] 2.6 g/dL 3.2-5.0 [facility] Serum or plasma albumin/glob ulin mass ratioOrdered By: Dr. Jaime on 02-25-2023 Albumin/Globulin [Mass ratio] 0.6 {ratio} 0.9-2.4 [facility] Serum or plasma calcium celina urement (mass/volume)Ordered By: Dr. Jaime on 02-25-2023 Calcium [Mass/Vol] 8.7 mg/dL 8.5-10.1 [facility] Serum or plasma creatinine m easurement (mass/volume)Ordered By: Dr. Jaime on 02-25-2023 Creatinine [Mass/Vol] 0.85 mg/dL 0.55-1.02 [facility] Comment on above: The validity of the calculated GFR & GFRAA in patients over 70 years has not been determined. Clinical correlation is essential. Serum or plasma urea nitroge n measurement (mass/volume)Ordered By: Dr. Jaime on 02-25-2023 Urea nitrogen [Mass/Vol] 23 mg/dL 7-18 [facility] Thin prep Papanicolaou smear with manual screeningOrdered By: Dr. Jaime on 02-25-2023 Thin prep Papanicolaou smear with manual screening 20 U/L 15-37 [facility] Thin prep Papanicolaou smear with manual screening 2 5-15 [facility] Glucose Glucometer (BldC) [M ass/Vol]Ordered By: Dr. Jaime on 02-23-2023 Glucose [Mass/Vol] 136 mg/dL 74-106 [facility] Comment on above: MANAGEMENT OF PATIEN T CARE PER NURSING PROTOCOL Blood manual differential co mment interpretation (narrative result)Ordered By: Dr. Jaime on 02-22-2023 Manual differential comment Ajit (Bld) [Interp] SCANNED [facility] Comment on above: LYMPHOPENIA Clostridium difficile detect ion by polymerase chain reactionOrdered By: Dr. Banks on 02-22-2023 C. difficile DNA ISA+probe Ql (Unsp spec) [facility] Base excessOrdered By: Dr. Joshua greenfield on 02-21-2023 Base excess Calc (BldV) [Moles/Vol] 12 mmol/L -2-2 [facility] Basophil percentageOrdered B y: Dr. Jaime on 02-21-2023 Basophil percentage 36.1 mmol/L 22-26 [facility] Basophils/100 WBC (Bld) 98 % 95-99 [facility] Blood platelet adequacy dete ction by light microscopyOrdered By: Dr. Padron on 02-21-2023 Platelets LM Ql (Bld) SLT DEC ADEQ [facility] CO2 (BldA) [Partial pressure ]Ordered By: Dr. Jaime on 02-21-2023 CO2 (Bld) [Partial pressure] 52.0 mm[Hg] 35-45 [facility] Culture, urineOrdered By: Dr Che Monique on 02-21-2023 Bacteria identified Cx Nom (U) Culture exhibits no growth. [facility] No Panel InformationOrdered By: Dr. Jaime on 02-21-2023 Bedside Blood Gas PEEP 7 [facility] Bedside Blood Gas Pressure Support 7 [facility] Blood Gas Oxygen Percent 50 [facility] Blood Gas Sample Site R Brach [facility] Blood Gas Specimen Type ART [facility] Blood Gas Total CO2 38 mmol/L [facility] Blood Gas Vent Mode CPAP/PS [facility] Oxygen (BldA) [Partial press ure]Ordered By: Dr. Jaime on 02-21-2023 Oxygen (Bld) [Partial pressure] 99 mmHG 75-100 [facility] Review by pathologistOrdered By: Dr. Padron on 02-21-2023 Pathologist review Ajit (Unsp spec) [Interp] Reviewed [facility] Comment on above: Previous reported re sult: March bernarda Edited by: RGOOD on 02/23/23:1043Pancytopenia.Leukopenia Normocytic anemia.Mild ThrombocytopeniaClinical correlation necessary.Blas Carrillo M.D. 02/23/23 AMENDED REPORT 02/23/23 1043 PATH REV previously reported as: Uyen menchaca Vancomycin troughOrdered By: Dr. Padron on 02-21-2023 Vancomycin trough [Mass/Vol] 25.5 ug/mL 5.0-15.0 [facility] Comment on above: VANCOMYCIN STANDARED DRUG THERAPY TROUGH LEVEL: 5.0 - 15.0 mg/L VANCOMYCIN HIGH INTENSITY THERAPY TROUGH LEVEL: 15.0 - 20.0 mg/L High Intensity therapy recommended for serious lifethreatening infections include:- Uyltnhytfv-Ecsotyjezver-Vchlggddn (Ventilator/Healtcare Associated)-Sepsis PLEASE CONTACT PHARMACY SERVICES (#1410) FOR INTERPRETATIONOF RESULTS. pH measurementOrdered By: Dr Che Jaime on 02-21-2023 pH (Unsp spec) 7.45 [pH] 7.35-7.45 [facility] Assessment of wrist artery p atency prior to arterial punctureOrdered By: Dr. Padron on 02-20-2023 Arterial patency Wrist artery --pre arterial puncture Positive [facility] Basophil percentageOrdered B y: Dr. Monique on 02-20-2023 Triglyceride [Mass/Vol] 141 mg/dL <199 [facility] Comment on above: The drugs N-Acetylcy steine and Metamizole may falsely depress this assay.Serum Triglycerides Reference Interval Normal <150 mg/dL Borderline high 150 - 199 mg/dL High 200 - 499 mg/dL Very High > or = 500 mg/dL Laboratory - Chemistry and C hemistry - challengeOrdered By: Dr. Monique on 02-20-2023 CK [Catalytic activity/Vol] 26 U/L 26-192 [facility] No Panel InformationOrdered By: Dr. Padron on 02-20-2023 Blood Gas Respiration Rate 15 [facility] Oxygen Delivery Device Adult Vent [facility] Basophil percentageOrdered B y: Dr. Padron on 02-19-2023 Basophil percentage 3.6 mg/dL 2.5-4.9 [facility] Laboratory - Chemistry and C hemistry - challengeOrdered By: Dr. Padron on 02-19-2023 Magnesium [Mass/Vol] 2.0 mg/dL 1.6-2.6 [facility] No Panel InformationOrdered By: Dr. Padron on 02-19-2023 Bld Gas Crit Called To/Read Back By Yes [facility] Blood Gas Notified Amanda MONIQUE [facility] Blood Gas Tidal Volume 325 [facility] Laboratory - Hematology and Cell countsOrdered By: Dr. Resendiz on 02-18-2023 Anisocytosis Ql (Bld) 1+ [facility] No Panel InformationOrdered By: Dr. Padron on 02-18-2023 Blood Gas Notified Time 1716 [facility] No Panel InformationOrdered By: Dr. Monique on 02-18-2023 Miscellaneous Test See comment [facility] Comment on above: TEST RESULT [...] Detected Not Detected __ TESTING PERFORMED AT [facility]. ORIGINAL REPORT ON FILE IN LAB CONTAINS ADDITIONAL TEST SITE INFORMATION. No Panel InformationOrdered By: Dr. Resendiz on 02-18-2023 Thyroid Stimulating Hormone (TSH) 0.74 uIU/mL 0.358-3.74 [facility] Methicillin-Resist S.aureus DNA PCR Positive Negative [facility] Serum procalcitonin measurem entOrdered By: Dr. Resendiz on 02-18-2023 Procalcitonin [Mass/Vol] 0.13 ng/mL 0.00-0.09 [facility] Comment on above: A procalcitonin (PCT [...] Auto (Unsp spec) [#/Vol] 0.69 10*3/uL 0.83-4.51 [facility] Assessment of wrist artery p atency prior to arterial punctureOrdered By: Dr. Resendiz on 02-17-2023 Arterial patency Wrist artery --pre arterial puncture Positive [facility] Base excessOrdered By: Dr. Deepika hernandez on 02-17-2023 Base excess Calc (BldV) [Moles/Vol] 26 mmol/L -2-2 [facility] Basophil percentageOrdered B y: Dr. Resendiz on 02-17-2023 Basophil percentage 51.8 mmol/L 22-26 [facility] Basophils/100 WBC (Bld) 88 % 95-99 [facility] Basophil percentageOrdered B y: Dr. Tsai on 02-17-2023 Basophil percentage 0 SEEN /hpf 0-5 [facility] Basophils/100 WBC (Bld) 0.4 % 0-1 [facility] Bilirubin [Mass/Vol] 0.50 mg/dL 0.20-1.00 [facility] Comment on above: For patients on eltr ombopag therapy, use of Dimension [place] TBIL is not recommended. Chloride [Moles/Vol] 102 mmol/L 98-107 [facility] Eosinophils/100 WBC (Bld) 0.2 % 0-5 [facility] Glucose [Mass/Vol] 238 mg/dL 74-106 [facility] Comment on above: Glucose result great er than or equal to 200 mg/dLsuggests DIABETES MELLITUS per A.D.A. criteria. Neutrophils (Bld) [#/Vol] 9.1 10*3/uL 2.0-7.7 [facility] Neutrophils/100 WBC (Bld) 87.0 % 47-70 [facility] Potassium [Moles/Vol] 4.1 mmol/L 3.5-5.1 [facility] Protein [Mass/Vol] 7.6 g/dL 6.4-8.2 [facility] Sodium [Moles/Vol] 145 mmol/L 136-145 [facility] WBC (Bld) [#/Vol] 10.5 10*3/uL 4.4-11.0 [facility] Bilirubin Test strip Ql (U)O rdered By: Dr. Tsai on 02-17-2023 Bilirubin Ql (U) Negative Negative [facility] Blood erythrocytes count (nu mber/volume)Ordered By: Dr. Tsai on 02-17-2023 RBC (Bld) [#/Vol] 3.69 10*6/uL 4.2-5.4 [facility] Blood hemoglobin measurement (mass/volume)Ordered By: Dr. Tsai on 02-17-2023 Hemoglobin (Bld) [Mass/Vol] 10.1 g/dL 12.0-15.0 [facility] Blood lymphocytes/100 leukoc ytesOrdered By: Dr. Tsai on 02-17-2023 Lymphocytes/100 WBC (Bld) 6.6 % 19-41 [facility] Blood monocytes/100 leukocyt esOrdered By: Dr. Tsai on 02-17-2023 Monocytes/100 WBC (Bld) 3.6 % 0-10 [facility] Blood platelet mean volumeOr dered By: Dr. Tsai on 02-17-2023 Platelet mean volume (Bld) [Entitic vol] 8.4 fL 6.2-12.0 [facility] CO2 (BldA) [Partial pressure ]Ordered By: Dr. Resendiz on 02-17-2023 CO2 (Bld) [Partial pressure] 96.6 mm[Hg] 35-45 [facility] Determination of erythrocyte mean corpuscular volume (MCV)Ordered By: Dr. Tsai on 02-17-2023 MCV (RBC) [Entitic vol] 101.1 fL 81-99 [facility] Hematocrit Auto (Bld) [Volum e fraction]Ordered By: Dr. Tsai on 02-17-2023 Hematocrit (Bld) [Volume fraction] 37.3 % 37-47 [facility] Hyaline casts LM.LPF (Urine sed) [#/Area]Ordered By: Dr. Tsai on 02-17-2023 Hyaline casts (Urine sed) [#/Area] 0 /[LPF] 0-5 [facility] Ketones Test strip Ql (U)Ord ered By: Dr. Tsai on 02-17-2023 Ketones Ql (U) Negative Negative [facility] Laboratory - Chemistry and C hemistry - challengeOrdered By: Dr. Tsai on 02-17-2023 ALP [Catalytic activity/Vol] 99 U/L 45-117 [facility] ALT [Catalytic activity/Vol] 26 U/L 13-56 [facility] CO2 [Moles/Vol] 45.0 mmol/L 21.0-32.0 [facility] Globulin (S) [Mass/Vol] 4.7 g/dL 2.2-4.2 [facility] Urea nitrogen/Creatinine [Mass ratio] 36.2 mg/mg 10-20 [facility] Laboratory - Chemistry and C hemistry - challengeOrdered By: Dr. Resendiz on 02-17-2023 Natriuretic peptide B (Bld) [Mass/Vol] 132.9 pg/mL 0-100 [facility] Laboratory - Drug toxicology Ordered By: Dr. Tsai on 02-17-2023 Amphetamines Ql (U) Negative <1000 ng/mL [facility] Benzodiazepines Ql (U) Negative < 200 ng/mL [facility] Cannabinoids Screen Ql (U) Negative < 50 ng/mL [facility] Cocaine Ql (U) Negative < 300 ng/mL [facility] Opiates Ql (U) Negative < 300 ng/mL [facility] Laboratory - Hematology and Cell countsOrdered By: Dr. Tsai on 02-17-2023 Erythrocyte distribution width (RBC) [Entitic vol] 55.7 fL 35.1-43.9 [facility] Erythrocyte distribution width (RBC) [Ratio] 15.0 % 11.6-14.6 [facility] Immature granulocytes/100 WBC (Bld) 2.200 % 0.0-0.9 [facility] Comment on above: IG% - Immature Granu locytes (promyelocytes, myelocytes and metamyelocytes) > 1% indicates that a LEFT SHIFT is Present. MCH (RBC) [Entitic mass] 27.4 pg 27.0-32.0 [facility] Nucleated RBC/100 WBC (Bld) [Ratio] 0.2 % 0-5 [facility] MCHC Auto (RBC) [Mass/Vol]Or dered By: Dr. Tsai on 02-17-2023 MCHC (RBC) [Mass/Vol] 27.1 g/dL 32-36 [facility] Mucus LM Ql (Urine sed)Order ed By: Dr. Tsai on 02-17-2023 Mucus Ql (Urine sed) 0 SEEN /hpf [facility] Nitrite Test strip Ql (U)Ord ered By: Dr. Tsai on 02-17-2023 Nitrite Ql (U) Negative Negative [facility] No Panel InformationOrdered By: Dr. Resendiz on 02-17-2023 Bedside Blood Gas PEEP 5 [facility] Bld Gas Crit Called To/Read Back By Yes [facility] Blood Gas Notified Time 2245 [facility] Blood Gas Notified Whom ED [facility] Blood Gas Oxygen Percent 60 [facility] Blood Gas Respiration Rate 16 [facility] Blood Gas Sample Site L RADIAL [facility] Blood Gas Specimen Type ART [facility] Blood Gas Tidal Volume 450 [facility] Blood Gas Total CO2 > 50 mmol/L [facility] Blood Gas Vent Mode AC/VC [facility] Oxygen Delivery Device Vent [facility] No Panel InformationOrdered By: Dr. Tsai on 02-17-2023 Ethyl Alcohol Level < 3.0 mg/dL [facility] Comment on above: The serum:whole bloo d ethanol ratio is approximately 1.14and varies slightly with hematocrit. Medical Alcohol reference interval and critical value innon-tolerant individuals; 50 - 100 Impairment 100 Intoxication 100 - 250 Severe Poisoning 250 - 400 Deep/possible fatal coma MDMA (Ecstasy) Screen Negative < 500 ng/mL [facility] Urine Barbiturates Screen Negative < 200 ng/mL [facility] Urine Drug Screen Comment [facility] Comment on above: CONFIRMATORY TESTING FOR [...] Methadone Screen Negative < 300 ng/mL [facility] Estimated Creatinine Clearance Calc 45.09 ml/min [facility] Estimated GFR (MDRD) Amer 118 mL/min >60 [facility] Comment on above: GFR Calc Estimated GFR (MDRD) Non-Af Amer 98 mL/min >60 [facility] Comment on above: Non- GFR Calc Troponin I High Sensitivity 13 pg/mL 3.0-54.0 [facility] Comment on above: Please Note: New Rosalie t Units and Gender Specific Reference Ranges. For more information see Policy Stat Procedure [place] High Sensitivity Troponin (TNIH) and attachments. Oxygen (BldA) [Partial press ure]Ordered By: Dr. Resendiz on 02-17-2023 Oxygen (Bld) [Partial pressure] 64 mmHG 75-100 [facility] Platelets bldOrdered By: Dr. Tsai on 02-17-2023 Platelets (Bld) [#/Vol] 163 10*3/uL 150-450 [facility] Protein Test strip Ql (U)Ord ered By: Dr. Tsai on 02-17-2023 Protein Ql (U) 100 mg/dl Negative [facility] Serum or plasma albumin celina urement (mass/volume)Ordered By: Dr. Tsai on 02-17-2023 Albumin [Mass/Vol] 2.9 g/dL 3.2-5.0 [facility] Serum or plasma albumin/glob ulin mass ratioOrdered By: Dr. Tsai on 02-17-2023 Albumin/Globulin [Mass ratio] 0.6 {ratio} 0.9-2.4 [facility] Serum or plasma calcium celina urement (mass/volume)Ordered By: Dr. Tsai on 02-17-2023 Calcium [Mass/Vol] 8.9 mg/dL 8.5-10.1 [facility] Serum or plasma creatinine m easurement (mass/volume)Ordered By: Dr. Tsai on 02-17-2023 Creatinine [Mass/Vol] 0.64 mg/dL 0.55-1.02 [facility] Comment on above: The validity of the calculated GFR & GFRAA in patients over 70 years has not been determined. Clinical correlation is essential. Serum or plasma urea nitroge n measurement (mass/volume)Ordered By: Dr. Tsai on 02-17-2023 Urea nitrogen [Mass/Vol] 23 mg/dL 7-18 [facility] Squamous epithelial cells de tection in urine sediment by light microscopyOrdered By: Dr. Tsai on 02-17-2023 Epithelial cells.squamous LM Ql (Urine sed) 0-5 SEEN /hpf 5-10 [facility] Thin prep Papanicolaou smear with manual screeningOrdered By: Dr. Tsai on 02-17-2023 Thin prep Papanicolaou smear with manual screening 21 U/L 15-37 [facility] Thin prep Papanicolaou smear with manual screening -2 5-15 [facility] Urine blood detectionOrdered By: Dr. Tsai on 02-17-2023 RBC Ql (U) 25 /ul Negative [facility] RBC Ql (U) 0-5 SEEN /hpf 0-5 [facility] Urine clarityOrdered By: Dr. Tsai on 02-17-2023 Clarity (U) Sl. Cloudy Clear [facility] Urine coarse granular cast d etectionOrdered By: Dr. Tsai on 02-17-2023 Coarse Granular Casts LM Ql (Urine sed) 0-5 SEEN /lpf 0-5 /lpf [facility] Urine color determinationOrd ered By: Dr. Tsai on 02-17-2023 Color (U) Yellow Yellow [facility] Urine glucose detectionOrder ed By: Dr. Tsai on 02-17-2023 Glucose Ql (U) Normal mg/dl Normal [facility] Urine leukocyte esterase det ection by dipstickOrdered By: Dr. Tsai on 02-17-2023 Leukocyte esterase Test strip Ql (U) Negative Negative [facility] Urine pHOrdered By: Dr. Paul kohli on 02-17-2023 pH (U) 5.0 [pH] 5.0 - 8.0 [facility] Urine phencyclidine (PCP) de tectionOrdered By: Dr. Tsai on 02-17-2023 Phencyclidine Ql (U) Negative < 25 ng/mL [facility] Urine sediment bacteria coun t by microscopy (number/high power field)Ordered By: Dr. Tsai on 02-17-2023 Bacteria LM.HPF (Urine sed) [#/Area] 0 /[HPF] None Seen [facility] Urine specific gravity measu rementOrdered By: Dr. Tsai on 02-17-2023 Specific gravity (U) [Rel density] 1.030 1.002-1.030 [facility] Urobilinogen Auto test strip Ql (U)Ordered By: Dr. Tsai on 02-17-2023 Urobilinogen Ql (U) Normal mg/dl Normal [facility] pH measurementOrdered By: Dr Che Resendiz on 02-17-2023 pH (Unsp spec) 7.34 [pH] 7.35-7.45 [facility] No Panel InformationOrdered By: Jonathan Dillard on 02-07-2023 Miscellaneous Test See comment [facility] Comment on above: TEST RESULTS LIMITSS ARS-CoV-2, [id number], ISA Not Detected Not DetectedThis nucleic acid amplification test was developed and its performance characteristics determined by [facility]. Nucleic acid amplification tests include RT-PCR and [...] result in this assay. [facility] ORIGINAL REPORT ON FILE IN LAB CONTAINS ADDITIONAL TEST SITE INFORMATION. Absolute lymphocyte countOrd ered By: Dr. Jeffries on 01-11-2023 Lymphocytes Auto (Unsp spec) [#/Vol] 0.59 10*3/uL 0.83-4.51 [facility] Basophil percentageOrdered B y: Dr. Jeffries on 01-11-2023 Basophils/100 WBC (Bld) 0.2 % 0-1 [facility] Bilirubin [Mass/Vol] 0.50 mg/dL 0.20-1.00 [facility] Comment on above: For patients on eltr ombopag therapy, use of Dimension [place] TBIL is not recommended. Chloride [Moles/Vol] 99 mmol/L 98-107 [facility] Eosinophils/100 WBC (Bld) 1.1 % 0-5 [facility] Glucose [Mass/Vol] 124 mg/dL 74-106 [facility] Comment on above: Fasting Glucose resu lt from 100 to 125 mg/dL suggests IMPAIRED HOMEOSTASIS per A.D.A. criteria. LDH [Catalytic activity/Vol] 147 U/L 84-246 [facility] Neutrophils (Bld) [#/Vol] 4.4 10*3/uL 2.0-7.7 [facility] Neutrophils/100 WBC (Bld) 81.5 % 47-70 [facility] Potassium [Moles/Vol] 4.2 mmol/L 3.5-5.1 [facility] Protein [Mass/Vol] 7.1 g/dL 6.4-8.2 [facility] Sodium [Moles/Vol] 146 mmol/L 136-145 [facility] WBC (Bld) [#/Vol] 5.4 10*3/uL 4.4-11.0 [facility] Blood erythrocytes count (nu mber/volume)Ordered By: Dr. Jeffries on 01-11-2023 RBC (Bld) [#/Vol] 3.43 10*6/uL 4.2-5.4 [facility] Blood hemoglobin measurement (mass/volume)Ordered By: Dr. Jeffries on 01-11-2023 Hemoglobin (Bld) [Mass/Vol] 9.7 g/dL 12.0-15.0 [facility] Blood lymphocytes/100 leukoc ytesOrdered By: Dr. Jeffries on 01-11-2023 Lymphocytes/100 WBC (Bld) 11.0 % 19-41 [facility] Blood manual differential co mment interpretation (narrative result)Ordered By: Dr. Jeffries on 01-11-2023 Manual differential comment Ajit (Bld) [Interp] SCANNED [facility] Blood monocytes/100 leukocyt esOrdered By: Dr. Jeffries on 01-11-2023 Monocytes/100 WBC (Bld) 5.6 % 0-10 [facility] Blood platelet mean volumeOr dered By: Dr. Jeffries on 01-11-2023 Platelet mean volume (Bld) [Entitic vol] 8.4 fL 6.2-12.0 [facility] Determination of erythrocyte mean corpuscular volume (MCV)Ordered By: Dr. Jeffries on 01-11-2023 MCV (RBC) [Entitic vol] 97.4 fL 81-99 [facility] Hematocrit Auto (Bld) [Volum e fraction]Ordered By: Dr. Jeffries on 01-11-2023 Hematocrit (Bld) [Volume fraction] 33.4 % 37-47 [facility] Hemoglobin in reticulocytes (mass per reticulocyte)Ordered By: Dr. Jeffries on 01-11-2023 Hemoglobin (Reticulocytes) [Entitic mass] 24.6 pg 30-35 [facility] Hypochromatic red blood cell detectionOrdered By: Dr. Jeffries on 01-11-2023 Hypochromia Ql (Bld) 2+ [facility] Iron measurement (mass/mass) Ordered By: Dr. Jeffries on 01-11-2023 Iron (Unsp spec) [Mass/Mass] 35 ug/dL 50-170 [facility] Laboratory - Chemistry and C hemistry - challengeOrdered By: Dr. Jeffries on 01-11-2023 ALP [Catalytic activity/Vol] 81 U/L 45-117 [facility] ALT [Catalytic activity/Vol] 15 U/L 13-56 [facility] CO2 [Moles/Vol] 43.0 mmol/L 21.0-32.0 [facility] Cobalamin (Vitamin B12) [Mass/Vol] 561 pg/mL 211-911 [facility] Globulin (S) [Mass/Vol] 3.9 g/dL 2.2-4.2 [facility] Urea nitrogen/Creatinine [Mass ratio] 22.3 mg/mg 10-20 [facility] Laboratory - Hematology and Cell countsOrdered By: Dr. Jeffries on 01-11-2023 Erythrocyte distribution width (RBC) [Entitic vol] 51.6 fL 35.1-43.9 [facility] Erythrocyte distribution width (RBC) [Ratio] 14.5 % 11.6-14.6 [facility] Immature granulocytes/100 WBC (Bld) 0.600 % 0.0-0.9 [facility] Comment on above: IG% - Immature Granu locytes (promyelocytes, myelocytes and metamyelocytes) > 1% indicates that a LEFT SHIFT is Present. MCH (RBC) [Entitic mass] 28.3 pg 27.0-32.0 [facility] Nucleated RBC/100 WBC (Bld) [Ratio] 0 % 0-5 [facility] MCHC Auto (RBC) [Mass/Vol]Or dered By: Dr. Jeffries on 01-11-2023 MCHC (RBC) [Mass/Vol] 29.0 g/dL 32-36 [facility] No Panel InformationOrdered By: Dr. Jeffries on 01-11-2023 Estimated GFR (MDRD) Amer 102 mL/min >60 [facility] Comment on above: GFR Calc Estimated GFR (MDRD) Non-Af Amer 85 mL/min >60 [facility] Comment on above: Non- GFR Calc Immature Platelet Fraction 1.3 % 1.0-7.9 [facility] Comment on above: Low PLT + Low IPF faust ggest a bone marrow production disorderLow PLT + high IPF suggests peripheral destruction(e.g.ITP, TTP, HIT, DIC, autoimmune) or bone marrow recoveryTrending of serial IPF measurements is recommended when evaluating for bone marrow responesValue above normal range indicates an increase in RBC cellular response from bone marrow. Immature Reticulocyte Fraction 23.00 % 3.00-15.90 [facility] Reticulocyte Count 2.53 % 0.5-1.5 [facility] Total Iron Binding Capacity 186 ug/dL 250-450 [facility] Platelets bldOrdered By: Dr. Jeffries on 01-11-2023 Platelets (Bld) [#/Vol] 138 10*3/uL 150-450 [facility] Serum or plasma albumin ceilna urement (mass/volume)Ordered By: Dr. Jeffries on 01-11-2023 Albumin [Mass/Vol] 3.2 g/dL 3.2-5.0 [facility] Serum or plasma albumin/glob ulin mass ratioOrdered By: Dr. Jeffries on 01-11-2023 Albumin/Globulin [Mass ratio] 0.8 {ratio} 0.9-2.4 [facility] Serum or plasma calcium celina urement (mass/volume)Ordered By: Dr. Jeffries on 01-11-2023 Calcium [Mass/Vol] 9.1 mg/dL 8.5-10.1 [facility] Serum or plasma creatinine m easurement (mass/volume)Ordered By: Dr. Jeffries on 01-11-2023 Creatinine [Mass/Vol] 0.72 mg/dL 0.55-1.02 [facility] Comment on above: The validity of the calculated GFR & GFRAA in patients over 70 years has not been determined. Clinical correlation is essential. Serum or plasma ferritin carter surement (mass/volume)Ordered By: Dr. Jeffries on 01-11-2023 Ferritin [Mass/Vol] 55 ng/mL 8-252 [facility] Serum or plasma folate measu rement (mass/volume)Ordered By: Dr. Jeffries on 01-11-2023 Folate [Mass/Vol] 73.30 ng/mL 3.1-55.4 [facility] Serum or plasma iron saturat ion measurement (mass fraction)Ordered By: Dr. Jeffries on 01-11-2023 Iron saturation [Mass fraction] 18.8 % 15.0-55.0 [facility] Serum or plasma urea nitroge n measurement (mass/volume)Ordered By: Dr. Jeffries on 01-11-2023 Urea nitrogen [Mass/Vol] 16 mg/dL 7-18 [facility] Thin prep Papanicolaou smear with manual screeningOrdered By: Dr. Jeffries on 01-11-2023 Thin prep Papanicolaou smear with manual screening 14 U/L 15-37 [facility] Thin prep Papanicolaou smear with manual screening 4 5-15 [facility] Progress Noteon 11-02-2022 Progress Note Obese [...] pancytopenia. 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 and underwent a bone [...] Stable, follow-up with surgery as discussed Normal [facility] Basophil percentageOrdered B y: Stef Villegas on 11-01-2022 WBC (Bld) [#/Vol] 4.9 10*3/uL 4.4-11.0 [facility] Blood erythrocytes count (nu mber/volume)Ordered By: Stef Villegas on 11-01-2022 RBC (Bld) [#/Vol] 3.26 10*6/uL 4.2-5.4 [facility] Blood hemoglobin measurement (mass/volume)Ordered By: Stef Villegas on 11-01-2022 Hemoglobin (Bld) [Mass/Vol] 8.9 g/dL 12.0-15.0 [facility] Blood platelet mean volumeOr dered By: Stef Villegas on 11-01-2022 Platelet mean volume (Bld) [Entitic vol] 10.0 fL 6.2-12.0 [facility] Determination of erythrocyte mean corpuscular volume (MCV)Ordered By: Stef Villegas on 11-01-2022 MCV (RBC) [Entitic vol] 96.0 fL 81-99 [facility] Hematocrit Auto (Bld) [Volum e fraction]Ordered By: Stef Villegas on 11-01-2022 Hematocrit (Bld) [Volume fraction] 31.3 % 37-47 [facility] Iron measurement (mass/mass) Ordered By: Stef Villegas on 11-01-2022 Iron (Unsp spec) [Mass/Mass] 29 ug/dL 50-170 [facility] Laboratory - Chemistry and C hemistry - challengeOrdered By: Stef Villegas on 11-01-2022 Cobalamin (Vitamin B12) [Mass/Vol] 208 pg/mL 211-911 [facility] Laboratory - Hematology and Cell countsOrdered By: Stef Villegas on 11-01-2022 Erythrocyte distribution width (RBC) [Entitic vol] 49.5 fL 35.1-43.9 [facility] Erythrocyte distribution width (RBC) [Ratio] 14.2 % 11.6-14.6 [facility] MCH (RBC) [Entitic mass] 27.3 pg 27.0-32.0 [facility] MCHC Auto (RBC) [Mass/Vol]Or dered By: Stef Villegas on 11-01-2022 MCHC (RBC) [Mass/Vol] 28.4 g/dL 32-36 [facility] No Panel InformationOrdered By: Stef Villegas on 11-01-2022 Total Iron Binding Capacity 212 ug/dL 250-450 [facility] Platelets bldOrdered By: Elida Villegas on 11-01-2022 Platelets (Bld) [#/Vol] 94 10*3/uL 150-450 [facility] Comment on above: PREVIOUS RESULTS <10 0. Serum or plasma ferritin carter surement (mass/volume)Ordered By: Stef Villegas on 11-01-2022 Ferritin [Mass/Vol] 45 ng/mL 8-252 [facility] Serum or plasma folate measu rement (mass/volume)Ordered By: Stef Bakari on 11-01-2022 Folate [Mass/Vol] 6.00 ng/mL 3.1-55.4 [facility] Serum or plasma iron saturat ion measurement (mass fraction)Ordered By: Stef Bakari on 11-01-2022 Iron saturation [Mass fraction] 13.7 % 15.0-55.[address] [facility] CT SPINE CERVICAL W/O CONTRA STon [...] 10/30/2022 12:08:00 PM Ordering Provider: TRACE MATTHEWS [facility] ([place]) Progress Noteon 10-20-2022 Progress Note Well-controlled hypertensive [...] discussed discharge status with nursing and social service worker is looking into assisted living facility placement in the near future. Normal [facility] XR SPINE CERVICAL AP/LAT/FLE X/EXTon 10-06-2022 [...] 2021 Basophil percentage 0 SEEN /hpf 0-5 [facility]: Bilirubin Test strip Ql (U)o n 10-05-2022 Bilirubin Ql (U) Negative Negative [facility] Work Phone: Ketones Test strip Ql (U)on 10-05-2022 Ketones Ql (U) Negative Negative [facility] Work Phone: Mucus LM Ql (Urine sed)on Mucus Ql (Urine sed) 0 SEEN /hpf [facility] Work Phone: Nitrite Test strip Ql (U)on 10-05-2022 Nitrite Ql (U) Negative Negative [facility] Work Phone: Protein Test strip Ql (U)on 10-05-2022 Protein Ql (U) Negative Negative [facility] Work Phone: Squamous epithelial cells de tection in urine sediment by light microscopyon 10-05-2022 Epithelial cells.squamous LM Ql (Urine sed) 0 SEEN /hpf 5-10 [facility] Work Phone: Urine blood detectionon 09-15 RBC Ql (U) Negative Negative [facility] Work Phone: RBC Ql (U) 0 SEEN /hpf 0-5 [facility] Work Phone: Urine clarityon 10-05-2022 Clarity (U) Clear Clear [facility] Work Phone: Urine color determinationon 10-05-2022 Color (U) Yellow Yellow [facility] Work Phone: Urine glucose detectionon Glucose Ql (U) Normal mg/dl Normal [facility] Work Phone: Urine leukocyte esterase det ection by dipstickon 10-05-2022 Leukocyte esterase Test strip Ql (U) Negative Negative [facility] Work Phone: Urine pHon 10-05-2022 pH (U) 7.0 [pH] 5.0 - 8.0 [facility] Work Phone: Urine sediment bacteria coun t by microscopy (number/high power field)on 10-05-2022 Bacteria LM.HPF (Urine sed) [#/Area] 0 /[HPF] None Seen [facility] Work Phone: Urine specific gravity measu rementon 10-05-2022 Specific gravity (U) [Rel density] 1.010 1.002-1.030 [facility] Work Phone: Urobilinogen Auto test strip Ql (U)on 10-05-2022 Urobilinogen Ql (U) Normal mg/dl Normal [facility] Work Phone: Absolute lymphocyte counton 09-29-2022 Lymphocytes Auto (Unsp spec) [#/Vol] 0.69 10*3/uL 0.83-4.51 [facility] Work Phone: Basophil percentageon 2021 Basophils/100 WBC (Bld) 0.3 % 0-1 [facility] Work Phone: Eosinophils/100 WBC (Bld) 2.1 % 0-5 [facility] Work Phone: Neutrophils (Bld) [#/Vol] 2.3 10*3/uL 2.0-7.7 [facility] Work Phone: Neutrophils/100 WBC (Bld) 69.9 % 47-70 [facility] Work Phone: WBC (Bld) [#/Vol] 3.3 10*3/uL 4.4-11.0 [facility] Work Phone: Blood erythrocytes count (nu mber/volume)on 09-29-2022 RBC (Bld) [#/Vol] 3.17 10*6/uL 4.2-5.4 [facility] Work Phone: Blood hemoglobin measurement (mass/volume)on 09-29-2022 Hemoglobin (Bld) [Mass/Vol] 8.8 g/dL 12.0-15.0 [facility] Work Phone: Blood lymphocytes/100 leukoc yteson 09-29-2022 Lymphocytes/100 WBC (Bld) 21.0 % 19-41 [facility] Work Phone: Blood monocytes/100 leukocyt eson 09-29-2022 Monocytes/100 WBC (Bld) 6.1 % 0-10 [facility] Work Phone: Blood platelet mean volumeon 09-29-2022 Platelet mean volume (Bld) [Entitic vol] 10.0 fL 6.2-12.0 [facility] Work Phone: Determination of erythrocyte mean corpuscular volume (MCV)on 09-29-2022 MCV (RBC) [Entitic vol] 97.2 fL 81-99 [facility] Work Phone: [phone] Hematocrit Auto (Bld) [Volum e fraction]on 09-29-2022 Hematocrit (Bld) [Volume fraction] 30.8 % 37-47 [facility] Work Phone: Laboratory - Hematology and Cell countson 09-29-2022 Erythrocyte distribution width (RBC) [Entitic vol] 49.7 fL 35.1-43.9 [facility] Work Phone: Erythrocyte distribution width (RBC) [Ratio] 14.0 % 11.6-14.6 [facility] Work Phone: Immature granulocytes/100 WBC (Bld) 0.600 % 0.0-0.9 [facility] Work Phone: Comment on above: IG% - Immature Granu locytes (promyelocytes, myelocytes and metamyelocytes) > 1% indicates that a LEFT SHIFT is Present. MCH (RBC) [Entitic mass] 27.8 pg 27.0-32.0 [facility] Work Phone: [phone] Nucleated RBC/100 WBC (Bld) [Ratio] 0.9 % 0-5 [facility] Work Phone: [phone] MCHC Auto (RBC) [Mass/Vol]on 09-29-2022 MCHC (RBC) [Mass/Vol] 28.6 g/dL 32-36 [facility] Work Phone: Platelets bldon 09-29-2022 Platelets (Bld) [#/Vol] 83 10*3/uL 150-450 [facility] Work Phone: Basophil percentageon 2021 Basophil percentage 5-10 SEEN /hpf 0-5 [facility] Work Phone: Bilirubin Test strip Ql (U)o n 09-08-2022 Bilirubin Ql (U) Negative Negative [facility] Work Phone: Ketones Test strip Ql (U)on 09-08-2022 Ketones Ql (U) Negative Negative [facility] Work Phone: Mucus LM Ql (Urine sed)on Mucus Ql (Urine sed) 1+ /hpf [facility] Work Phone: Nitrite Test strip Ql (U)on 09-08-2022 Nitrite Ql (U) Positive Negative [facility] Work Phone: Protein Test strip Ql (U)on 09-08-2022 Protein Ql (U) Negative Negative [facility] Work Phone: Squamous epithelial cells de tection in urine sediment by light microscopyon 09-08-2022 Epithelial cells.squamous LM Ql (Urine sed) 0-5 SEEN /hpf 5-10 [facility] Work Phone: Urine blood detectionon 08-15 RBC Ql (U) 10 /ul Negative [facility] Work Phone: RBC Ql (U) 0-5 SEEN /hpf 0-5 [facility] Work Phone: Urine clarityon 09-08-2022 Clarity (U) Sl. Cloudy Clear [facility] Work Phone: Urine color determinationon 09-08-2022 Color (U) Yellow Yellow [facility] Work Phone: Urine glucose detectionon Glucose Ql (U) Normal mg/dl Normal [facility] Work Phone: Urine leukocyte esterase det ection by dipstickon 09-08-2022 Leukocyte esterase Test strip Ql (U) 500 /ul Negative [facility] Work Phone: Urine pHon 09-08-2022 pH (U) 6.5 [pH] 5.0 - 8.0 [facility] Work Phone: Urine sediment bacteria coun t by microscopy (number/high power field)on 09-08-2022 Bacteria LM.HPF (Urine sed) [#/Area] 2 /[HPF] None Seen [facility] Work Phone: Urine specific gravity measu rementon 09-08-2022 Specific gravity (U) [Rel density] 1.010 1.002-1.030 [facility] Work Phone: Urobilinogen Auto test strip Ql (U)on 09-08-2022 Urobilinogen Ql (U) Normal mg/dl Normal [facility] Work Phone: Absolute lymphocyte counton 09-01-2022 Lymphocytes Auto (Unsp spec) [#/Vol] 0.68 10*3/uL 0.83-4.51 [facility] Work Phone: Basophil percentageon 2021 Basophils/100 WBC (Bld) 0.3 % 0-1 [facility] Work Phone: Bilirubin [Mass/Vol] 0.50 mg/dL 0.20-1.00 [facility] Work Phone: Comment on above: For patients on eltr ombopag therapy, use of Dimension [place] TBIL is not recommended. Chloride [Moles/Vol] 106 mmol/L 98-107 [facility] Work Phone: Eosinophils/100 WBC (Bld) 1.5 % 0-5 [facility] Work Phone: Glucose [Mass/Vol] 86 mg/dL 74-106 [facility] Work Phone: Neutrophils (Bld) [#/Vol] 2.4 10*3/uL 2.0-7.7 [facility] Work Phone: Neutrophils/100 WBC (Bld) 71.9 % 47-70 [facility] Work Phone: [phone] Potassium [Moles/Vol] 3.9 mmol/L 3.5-5.1 [facility] Work Phone: Protein [Mass/Vol] 6.4 g/dL 6.4-8.2 [facility] Work Phone: Sodium [Moles/Vol] 147 mmol/L 136-145 [facility] Work Phone: WBC (Bld) [#/Vol] 3.4 10*3/uL 4.4-11.0 [facility] Work Phone: [phone] Blood erythrocytes count (nu mber/volume)on 09-01-2022 RBC (Bld) [#/Vol] 2.97 10*6/uL 4.2-5.4 [facility] Work Phone: Blood hemoglobin measurement (mass/volume)on 09-01-2022 Hemoglobin (Bld) [Mass/Vol] 8.6 g/dL 12.0-15.0 [facility] Work Phone: Blood lymphocytes/100 leukoc yteson 09-01-2022 Lymphocytes/100 WBC (Bld) 20.3 % 19-41 [facility] Work Phone: Blood monocytes/100 leukocyt eson 09-01-2022 Monocytes/100 WBC (Bld) 5.7 % 0-10 [facility] Work Phone: [phone] Blood platelet adequacy dete ction by light microscopyon 09-01-2022 Platelets LM Ql (Bld) MOD DEC ADEQ [facility] Work Phone: Blood platelet mean volumeon 09-01-2022 Platelet mean volume (Bld) [Entitic vol] 9.3 fL 6.2-12.0 [facility] Work Phone: Determination of erythrocyte mean corpuscular volume (MCV)on 09-01-2022 MCV (RBC) [Entitic vol] 97.6 fL 81-99 [facility] Work Phone: Hematocrit Auto (Bld) [Volum e fraction]on 09-01-2022 Hematocrit (Bld) [Volume fraction] 29.0 % 37-47 [facility] Work Phone: Laboratory - Chemistry and C hemistry - challengeon 09-01-2022 ALP [Catalytic activity/Vol] 65 U/L 45-117 [facility] Work Phone: ALT [Catalytic activity/Vol] 19 U/L 13-56 [facility] Work Phone: CO2 [Moles/Vol] 40.0 mmol/L 21.0-32.0 [facility] Work Phone: Globulin (S) [Mass/Vol] 3.4 g/dL 2.2-4.2 [facility] Work Phone: Urea nitrogen/Creatinine [Mass ratio] 21.1 mg/mg 10-20 [facility] Work Phone: Laboratory - Hematology and Cell countson 09-01-2022 Erythrocyte distribution width (RBC) [Entitic vol] 49.0 fL 35.1-43.9 [facility] Work Phone: Erythrocyte distribution width (RBC) [Ratio] 13.7 % 11.6-14.6 [facility] Work Phone: Immature granulocytes/100 WBC (Bld) 0.300 % 0.0-0.9 [facility] Work Phone: Comment on above: IG% - Immature Granu locytes (promyelocytes, myelocytes and metamyelocytes) > 1% indicates that a LEFT SHIFT is Present. MCH (RBC) [Entitic mass] 29.0 pg 27.0-32.0 [facility] Work Phone: Nucleated RBC/100 WBC (Bld) [Ratio] 0 % 0-5 [facility] Work Phone: MCHC Auto (RBC) [Mass/Vol]on 09-01-2022 MCHC (RBC) [Mass/Vol] 29.7 g/dL 32-36 [facility] Work Phone: No Panel Informationon 09-01 Estimated GFR (MDRD) Amer 112 mL/min >60 [facility] Work Phone: Comment on above: GFR Calc Estimated GFR (MDRD) Non-Af Amer 93 mL/min >60 [facility] Work Phone: Comment on above: Non- GFR Calc Thyroid Stimulating Hormone (TSH) 2.06 uIU/mL 0.358-3.74 [facility] Work Phone: Platelets bldon 09-01-2022 Platelets (Bld) [#/Vol] 99 10*3/uL 150-450 [facility] Work Phone: RBC morphologyon 09-01-2022 RBC morphology finding Nom (Bld) NORM C+C NORMAL NORM C&C [facility] Work Phone: Serum or plasma albumin celina urement (mass/volume)on 09-01-2022 Albumin [Mass/Vol] 3.0 g/dL 3.2-5.0 [facility] Work Phone: Serum or plasma albumin/glob ulin mass ratioon 09-01-2022 Albumin/Globulin [Mass ratio] 0.9 {ratio} 0.9-2.4 [facility] Work Phone: Serum or plasma calcium celina urement (mass/volume)on 09-01-2022 Calcium [Mass/Vol] 8.8 mg/dL 8.5-10.1 [facility] Work Phone: Serum or plasma creatinine m easurement (mass/volume)on 09-01-2022 Creatinine [Mass/Vol] 0.66 mg/dL 0.55-1.02 [facility] Work Phone: Comment on above: The validity of the calculated GFR & GFRAA in patients over 70 years has not been determined. Clinical correlation is essential. Serum or plasma urea nitroge n measurement (mass/volume)on 09-01-2022 Urea nitrogen [Mass/Vol] 14 mg/dL 7-18 [facility] Work Phone: Thin prep Papanicolaou smear with manual screeningon 09-01-2022 Thin prep Papanicolaou smear with manual screening 21 U/L 15-37 [facility] Work Phone: Thin prep Papanicolaou smear with manual screening 1 5-15 [facility] Work Phone: Absolute lymphocyte counton 08-26-2022 Lymphocytes Auto (Unsp spec) [#/Vol] 0.68 10*3/uL 0.83-4.51 [facility] Work Phone: Basophil percentageon 2021 Basophils/100 WBC (Bld) 0.2 % 0-1 [facility] Work Phone: Eosinophils/100 WBC (Bld) 1.2 % 0-5 [facility] Work Phone: Neutrophils (Bld) [#/Vol] 3.0 10*3/uL 2.0-7.7 [facility] Work Phone: Neutrophils/100 WBC (Bld) 74.7 % 47-70 [facility] Work Phone: WBC (Bld) [#/Vol] 4.0 10*3/uL 4.4-11.0 [facility] Work Phone: Blood erythrocytes count (nu mber/volume)on 08-26-2022 RBC (Bld) [#/Vol] 2.88 10*6/uL 4.2-5.4 [facility] Work Phone: [phone] Blood hemoglobin measurement (mass/volume)on 08-26-2022 Hemoglobin (Bld) [Mass/Vol] 8.5 g/dL 12.0-15.0 [facility] Work Phone: Blood lymphocytes/100 leukoc yteson 08-26-2022 Lymphocytes/100 WBC (Bld) 17.0 % 19-41 [facility] Work Phone: Blood monocytes/100 leukocyt eson 08-26-2022 Monocytes/100 WBC (Bld) 6.7 % 0-10 [facility] Work Phone: Blood platelet mean volumeon 08-26-2022 Platelet mean volume (Bld) [Entitic vol] 9.3 fL 6.2-12.0 [facility] Work Phone: Determination of erythrocyte mean corpuscular volume (MCV)on 08-26-2022 MCV (RBC) [Entitic vol] 101.0 fL 81-99 [facility] Work Phone: [phone] Hematocrit Auto (Bld) [Volum e fraction]on 08-26-2022 Hematocrit (Bld) [Volume fraction] 29.1 % 37-47 [facility] Work Phone: Laboratory - Hematology and Cell countson 08-26-2022 Erythrocyte distribution width (RBC) [Entitic vol] 50.9 fL 35.1-43.9 [facility] Work Phone: Erythrocyte distribution width (RBC) [Ratio] 13.8 % 11.6-14.6 [facility] Work Phone: [phone] Immature granulocytes/100 WBC (Bld) 0.200 % 0.0-0.9 [facility] Work Phone: Comment on above: IG% - Immature Granu locytes (promyelocytes, myelocytes and metamyelocytes) > 1% indicates that a LEFT SHIFT is Present. MCH (RBC) [Entitic mass] 29.5 pg 27.0-32.0 [facility] Work Phone: Nucleated RBC/100 WBC (Bld) [Ratio] 0 % 0-5 [facility] Work Phone: [phone] MCHC Auto (RBC) [Mass/Vol]on 08-26-2022 MCHC (RBC) [Mass/Vol] 29.2 g/dL 32-36 [facility] Work Phone: Platelets bldon 08-26-2022 Platelets (Bld) [#/Vol] 105 10*3/uL 150-450 [facility] Work Phone: Basophil percentageon 2021 Chloride [Moles/Vol] 99 mmol/L 98-107 [facility] Work Phone: Cholesterol [Mass/Vol] 149 mg/dL <200 [facility] Work Phone: Comment on above: <200 mg/dL Desirable 200-240 mg/dL Borderline >240 mg/dL High Risk Glucose [Mass/Vol] 148 mg/dL 74-106 [facility] Work Phone: Comment on above: Fasting Glucose resu lt greater than or equal to 126 mg/dL suggests DIABETES MELLITUS per A.D.A. criteria. Potassium [Moles/Vol] 4.2 mmol/L 3.5-5.1 [facility] Work Phone: Sodium [Moles/Vol] 141 mmol/L 136-145 [facility] Work Phone: Triglyceride [Mass/Vol] 188 mg/dL <199 [facility] Work Phone: Comment on above: The drugs N-Acetylcy steine and Metamizole may falsely depress this assay.Serum Triglycerides Reference Interval Normal <150 mg/dL Borderline high 150 - 199 mg/dL High 200 - 499 mg/dL Very High > or = 500 mg/dL WBC (Bld) [#/Vol] 4.8 10*3/uL 4.4-11.0 [facility] Work Phone: Blood erythrocytes count (nu mber/volume)on 08-02-2022 RBC (Bld) [#/Vol] 2.91 10*6/uL 4.2-5.4 [facility] Work Phone: Blood hemoglobin measurement (mass/volume)on 08-02-2022 Hemoglobin (Bld) [Mass/Vol] 8.6 g/dL 12.0-15.0 [facility] Work Phone: Blood platelet mean volumeon 08-02-2022 Platelet mean volume (Bld) [Entitic vol] 9.1 fL 6.2-12.0 [facility] Work Phone: Determination of erythrocyte mean corpuscular volume (MCV)on 08-02-2022 MCV (RBC) [Entitic vol] 102.4 fL 81-99 [facility] Work Phone: Hematocrit Auto (Bld) [Volum e fraction]on 08-02-2022 Hematocrit (Bld) [Volume fraction] 29.8 % 37-47 [facility] Work Phone: Iron measurement (mass/mass) on 08-02-2022 Iron (Unsp spec) [Mass/Mass] 43 ug/dL 50-170 [facility] Work Phone: Laboratory - Chemistry and C hemistry - challengeon 08-02-2022 Albumin [Mass/Vol] 3.3 g/dL 2.9-4.4 [facility] Work Phone: CO2 [Moles/Vol] 39.0 mmol/L 21.0-32.0 [facility] Work Phone: Cobalamin (Vitamin B12) [Mass/Vol] 350 pg/mL 211-911 [facility] Work Phone: Urea nitrogen/Creatinine [Mass ratio] 26.8 mg/mg 10-20 [facility] Work Phone: Laboratory - Hematology and Cell countson 08-02-2022 Erythrocyte distribution width (RBC) [Entitic vol] 52.6 fL 35.1-43.9 [facility] Work Phone: Erythrocyte distribution width (RBC) [Ratio] 14.2 % 11.6-14.6 [facility] Work Phone: MCH (RBC) [Entitic mass] 29.6 pg 27.0-32.0 [facility] Work Phone: MCHC Auto (RBC) [Mass/Vol]on 08-02-2022 MCHC (RBC) [Mass/Vol] 28.9 g/dL 32-36 [facility] Work Phone: No Panel Informationon 08-02 Addendum Document Comment . [facility] Work Phone: Comment on above: The SPE pattern appe ars unremarkable. Evidence ofmonoclonal protein is not apparent.Performed at: [address] [id number] Director: Mark Woo PhD, Phone: [phone] Hqztw-[id number]-Uofdpokgn 0.3 g/dL 0.0-0.4 [facility] Work Phone: Mjmmi-9-Yunrckcqb 0.9 g/dL 0.4-1.0 [facility] Work Phone: Estimated GFR (MDRD) Amer 104 mL/min >60 [facility] Work Phone: Comment on above: GFR Calc Estimated GFR (MDRD) Non-Af Amer 86 mL/min >60 [facility] Work Phone: Comment on above: Non- GFR Calc Gamma Globulins 0.9 g/dL 0.4-1.8 [facility] Work Phone: Thyroid Stimulating Hormone (TSH) 1.91 uIU/mL 0.358-3.74 [facility] Work Phone: Total Iron Binding Capacity 268 ug/dL 250-450 [facility] Work Phone: Platelets bldon 08-02-2022 Platelets (Bld) [#/Vol] 120 10*3/uL 150-450 [facility] Work Phone: Protein Fractions Elph [Inte rp]on 08-02-2022 Protein Fractions [Interp] Comment . [facility] Work Phone: Comment on above: Protein electrophore sis scan will follow via computer,mail, or packager hand delivery. Serum albumin to globulin ra amairani by protein electrophoresison 08-02-2022 Albumin/Globulin Elph [Mass ratio] 1.0 0.7-1.7 [facility] Work Phone: Serum globulin measurement ( mass/volume)on 08-02-2022 Globulin (S) [Mass/Vol] 3.2 g/dL 2.2-3.9 [facility] Work Phone: Serum or plasma beta globuli n measurement by electrophoresis (mass/volume)on 08-02-2022 Beta globulin Elph [Mass/Vol] 1.0 g/dL 0.7-1.3 [facility] Work Phone: Serum or plasma calcium celina urement (mass/volume)on 08-02-2022 Calcium [Mass/Vol] 9.0 mg/dL 8.5-10.1 [facility] Work Phone: Serum or plasma cholesterol in HDL measurement (mass/volume)on 08-02-2022 Cholesterol in HDL [Mass/Vol] 53 mg/dL >40 [facility] Work Phone: Comment on above: The drugs N-Acetylcy steine and Metamizole may falsely depress this assay. Reference Range HDL <40 mg/dL Low HDL Cholesterol HDL >or= 60 mg/dL High HDL Cholesterol Serum or plasma cholesterol in VLDL measurement (mass/volume)on 08-02-2022 Cholesterol in VLDL [Mass/Vol] 38 mg/dL 5-40 [facility] Work Phone: Serum or plasma creatinine m easurement (mass/volume)on 08-02-2022 Creatinine [Mass/Vol] 0.71 mg/dL 0.55-1.02 [facility] Work Phone: Comment on above: The validity of the calculated GFR & GFRAA in patients over 70 years has not been determined. Clinical correlation is essential. Serum or plasma iron saturat ion measurement (mass fraction)on 08-02-2022 Iron saturation [Mass fraction] 16.0 % 15.0-55.0 [facility] Work Phone: Serum or plasma low density lipoprotein (LDL) cholesterol measurement (mass/volume)on 08-02-2022 Cholesterol in LDL [Mass/Vol] 58 mg/dL 0-130 [facility] Work Phone: Serum or plasma urea nitroge n measurement (mass/volume)on 08-02-2022 Urea nitrogen [Mass/Vol] 19 mg/dL 7-18 [facility] Work Phone: Thin prep Papanicolaou smear with manual screeningon 08-02-2022 Thin prep Papanicolaou smear with manual screening 3 5-15 [facility] Work Phone: Thin prep Papanicolaou smear with manual screening See comment [facility] Work Phone: Comment on above: Result: Not Observed Total protein bloodon 2021 Protein [Mass/Vol] 6.5 g/dL 6.0-8.5 [facility] Work Phone: Whole blood hemoglobin A1c/t otal hemoglobin ratio (mass fraction)on 08-02-2022 HbA1c (Bld) [Mass fraction] 5.7 % 3.8-5.6 [facility] Work Phone: Comment on above: Normal [...] Comment on above: Result Comment: [place] [id number] FLUBV RNA ISA+probe Ql (Resp) Negative 8 (07/27/22 9:01 AM) Invalid Interpretation Code Negative Auto Viro/Sero SS Comment on above: Result [place]: [place] [id number] Hospitalized Yes (07/27/22 9:01 AM) Invalid Interpretation [...] 07-12 Escherichia coli Escherichia coli [facility] Work Phone: LABORATORYOrdered By: Dana Lucero on [...] Invalid Interpretation Code 82 - 115 mg/dL [facility] Work Phone: LABORATORYOrdered By: Triston Nicholson on [...] S CNCOon 11-30-2021 CNCO Letter Text Normal [facility] LABORATORYOrdered By: Dori Frances on 09-15-2021 [...] Former smoker Tobacco Use Screening; Status:Complete; Done: [id number] Perform:Not Applicable;Ordered; For:SocHx: Former smoker; Ordered By:Jenniffer [...] mixing and drinking quickly. This product is etoc-wze-vjieqok. Additionally take MiraLAX as needed for constipation. [...] ultrasound of the liver History of Present [id number] female spoken to over telephone referred for [...] History of Colonoscopy APR. 2013- DONE [place]- NORMAL History of Esophagogastroduodenoscop y APPROX- 2013- [place]- NORMAL History of Knee arthroscopy History of [...] identified Cx Nom (U) Presumptive E. coli [facility] Work Phone: Bacteria identified Cx Nom (U) Positive [facility] Work Phone: Vital Signs Date Time Vital Sign Value Performing Clinician Facility 10-31-2023 11:16-0500 Body height 165.1 cm Elida Rafaume STEAM STATION SUPERVISOR-GRAIN OILSEED OR PASTURE FARM WORKER Work Phone: [facility] 10-31-2023 11:16-0500 Body mass index (BMI) [Ratio] 26.79 kg/m2 Elida Blume STEAM STATION SUPERVISOR-GRAIN OILSEED OR PASTURE FARM WORKER Work Phone: [facility] 10-31-2023 11:16-0500 Body weight 73.03 kg Elida Blume STEAM STATION SUPERVISOR-GRAIN OILSEED OR PASTURE FARM WORKER Work Phone: [facility] 10-31-2023 11:16-0500 Diastolic blood pressure 61 mm[Hg] Elida Blume STEAM STATION SUPERVISOR-GRAIN OILSEED OR PASTURE FARM WORKER Work Phone: [facility] 10-31-2023 11:16-0500 Heart rate 84 /min Elida Blume STEAM STATION SUPERVISOR-GRAIN OILSEED OR PASTURE FARM WORKER Work Phone: [facility] 10-31-2023 11:16-0500 SaO2% (BldA) [Mass fraction] 97 % Elida Blume STEAM STATION SUPERVISOR-GRAIN OILSEED OR PASTURE FARM WORKER Work Phone: [facility] 10-31-2023 11:16-0500 Systolic blood pressure 94 mm[Hg] Elida Blume STEAM STATION SUPERVISOR-GRAIN OILSEED OR PASTURE FARM WORKER Work Phone: [facility] 10-17-2023 11:20-0500 Body height 165.1 cm Varsha Sotelo MD Work Phone: [facility] 10-17-2023 11:20-0500 Body mass index (BMI) [Ratio] 26.88 kg/m2 Varsha Sotelo MD Work Phone: [facility] 10-17-2023 11:20-0500 Body temperature 97.7 [degF] Varsha Sotelo MD Work Phone: [facility] 10-17-2023 11:20-0500 Body weight 73.26 kg Varsha Sotelo MD Work Phone: [facility] 10-17-2023 11:20-0500 Diastolic blood pressure 54 mm[Hg] Varsha Sotelo MD Work Phone: [facility] 10-17-2023 11:20-0500 Heart rate 74 /min Varsha Sotelo MD Work Phone: [facility] 10-17-2023 11:20-0500 Systolic blood pressure 94 mm[Hg] Varsha Sotelo MD Work Phone: [facility] 09-28-2023 09:24-0500 Body temperature 97.9 [degF] Velvet Jerez DO Work Phone: [facility] 09-28-2023 09:24-0500 Diastolic blood pressure 70 mm[Hg] Velvet Landon-yler DO Work Phone: [facility] 09-28-2023 09:24-0500 Heart rate 91 /min Velvet Landon-yler DO Work Phone: [facility] 09-28-2023 09:24-0500 Respiratory rate 16 /min Velvet Landon-Seyler DO Work Phone: [facility] 09-28-2023 09:24-0500 SaO2% (BldA) [Mass fraction] 99 % Velvet Landon-Seyler DO Work Phone: [facility] 09-28-2023 09:24-0500 Systolic blood pressure 111 mm[Hg] Velvet Landon-Seyler DO Work Phone: [facility] 09-19-2023 16:37-0500 Body temperature 37.0 Velvet Landon-Seyler DO Work Phone: [facility] 09-19-2023 16:37-0500 SaO2% (BldA) [Mass fraction] 99 % Velvet Landon-Seyler DO Work Phone: [facility] 09-19-2023 14:04-0500 Body temperature 37.0 degrees Celsius [facility] Comment on above: Order Comment: While on baseline/ home l evel of oxygen Result Comment: NOTE : Patient Results are Not Corrected for Temperature Performed By: #### 6 00-7 #### BEVERLEY Poe ([id number]) [facility] ([facility]) [address] [place] [address] 09-19-2023 14:04-0500 SaO2% (BldA) [Mass fraction] 99 % [facility] Comment on above: Order Comment: While on baseline/ home l evel of oxygen Performed By: #### 6 00-7 #### BEVERLEY JU Poe ([id number]) [facility] ([facility]) [address] [place] [address] 09-15-2023 18:44-0400 Body height 165.1 cm Velvet Jerez DO Work Phone: [facility] 09-15-2023 18:44-0400 Body mass index (BMI) [Ratio] 27.46 kg/m2 Velvet Jerez DO Work Phone: [facility] 09-15-2023 18:44-0400 Body weight 74.84 kg Velvet Jerez DO Work Phone: [facility] 09-15-2023 16:54-0400 Diastolic blood pressure 60 mm[Hg] Dr. Jonathan Dillard Sr. Work Phone: [facility] 09-15-2023 16:54-0400 Heart rate 88 /min Dr. Jonathan Dillard Sr. Work Phone: [facility] 09-15-2023 16:54-0400 Inhaled oxygen flow rate 3 L/min Dr. Jonathan Dillard Sr. Work Phone: [facility] 09-15-2023 16:54-0400 Respiratory rate 18 /min Dr. Jonatahn Dillard Sr. Work Phone: [facility] 09-15-2023 16:54-0400 SaO2% (BldA) [Mass fraction] 100 % Dr. Jonathan Dillard Sr. Work Phone: [facility] 09-15-2023 16:54-0400 Systolic blood pressure 115 mm[Hg] Dr. Jonathan Dillard Sr. Work Phone: [facility] 09-15-2023 16:30-0400 Body temperature 97.8 [degF] Dr. Jonathan Dillard Sr. Work Phone: [facility] 09-14-2023 22:45-0400 Body height 165.[address] Jonathan Dillard Sr. Work Phone: [facility] 09-14-2023 22:45-0400 Body mass index (BMI) [Ratio] 29 kg/m2 Dr. Jonathan Dillard Sr. Work Phone: [facility] 09-14-2023 22:45-0400 Body weight 79.[address] Jonathan Dillard Sr. Work Phone: [facility] 09-08-2023 10:18-0400 Body mass index (BMI) [Ratio] 27.6 kg/m2 Dr. Jonathan Dillard Sr. Work Phone: [facility] 09-08-2023 10:18-0400 Body temperature 97.7 [degF] Dr. Jonathan Dillard Sr. Work Phone: [facility] 09-08-2023 10:18-0400 Body weight 75.[address] Jonathan Dillard Sr. Work Phone: [facility] 09-08-2023 10:18-0400 Diastolic blood pressure 55 mm[Hg] Dr. Jonathan Dillard Sr. Work Phone: [facility] 09-08-2023 10:18-0400 Heart rate 97 /min Dr. Jonathan Dillard Sr. Work Phone: [facility] 09-08-2023 10:18-0400 Inhaled oxygen flow rate 1 L/min Dr. Jonathan Dillard Sr. Work Phone: [facility] 09-08-2023 10:18-0400 Respiratory rate 18 /min Dr. Jonathan Dillard Sr. Work Phone: [facility] 09-08-2023 10:18-0400 SaO2% (BldA) [Mass fraction] 95 % Dr. Jonathan Dillard Sr. Work Phone: [facility] 09-08-2023 10:18-0400 Systolic blood pressure 99 mm[Hg] Dr. Jonathan Dillard Sr. Work Phone: [facility] 08-15-2023 11:54-0400 Diastolic Blood Pressure Non-Invasive [address] MARK JEREZ MD [facility] 08-15-2023 11:54-0400 Heart rate 91 /min DR MARK JEREZ MD [facility] 08-15-2023 11:54-0400 Respiratory rate 23 /min DR MARK JEREZ MD [facility] 08-15-2023 11:54-0400 Systolic Blood Pressure Non-Invasive [address] MARK JEREZ MD [facility] 08-15-2023 11:41-0400 Diastolic Blood Pressure Non-Invasive [address] MARK JEREZ MD [facility] 08-15-2023 11:41-0400 Heart rate 98 /min DR MARK JEREZ MD [facility] 08-15-2023 11:41-0400 Respiratory rate 19 /min DR MARK JEREZ MD [facility] 08-15-2023 11:41-0400 Systolic Blood Pressure Non-Invasive [address] MARK JEREZ MD [facility] 08-15-2023 11:25-0400 Body temperature 97.52 [degF] DR MARK JEREZ MD [facility] 08-15-2023 11:25-0400 Diastolic Blood Pressure Non-Invasive [address] MARK JEREZ MD [facility] 08-15-2023 11:25-0400 Heart rate 97 /min DR MARK JEREZ MD [facility] 08-15-2023 11:25-0400 Respiratory rate 24 /min DR AMRK JEREZ MD [facility] 08-15-2023 11:25-0400 Systolic Blood Pressure Non-Invasive [address] MARK JEREZ MD [facility] 08-15-2023 11:15-0400 Respiratory Rate - Anes 25 br/min DR MARK JEREZ MD [facility] 08-15-2023 11:10-0400 Respiratory Rate - Anes 26 br/min DR MARK JEREZ MD [facility] 08-15-2023 11:05-0400 Respiratory Rate - Anes 9 br/min DR MARK JEREZ MD [facility] 08-15-2023 10:290400 Body height [address] MARK JEREZ MD [facility] 08-15-2023 10:29-0400 Body weight [address] MARK JEREZ MD [facility] 08-15-2023 10:290400 Body weight 34.89 kg/m2 DR MARK JEREZ MD [facility] 08-15-2023 10:190400 Body height [address] MARK JEREZ MD [facility] 08-15-2023 10:190400 Body temperature 98.06 [degF] DR MARK JEREZ MD [facility] 08-15-2023 10:190400 Body weight [address] MARK JEREZ MD [facility] 08-15-2023 10:19-0400 Heart rate 87 /min DR MARK JEREZ MD [facility] 08-10-2023 03:47-0400 Diastolic blood pressure 62 mm[Hg] [facility] 08-10-2023 03:47-0400 Heart rate 89 /min [facility]-10-2023 03:47-0400 Respiratory rate 18 /min [facility] 08-10-2023 03:47-0400 SaO2% (BldA) [Mass fraction] 95 % [facility] 08-10-2023 03:47-0400 Systolic blood pressure 108 mm[Hg] [facility] 08-09-2023 22:56-0400 Body height 165.1 cm [facility] 08-09-2023 22:56-0400 Body mass index (BMI) [Ratio] 29.3 kg/m2 [facility] 08-09-2023 22:56-0400 Body temperature 98.9 [degF] [facility] 08-09-2023 22:56-0400 Body weight 80.1 kg [facility] 08-09-2023 22:56-0400 Inhaled oxygen flow rate 2 L/min MD Castillo [facility] 07-14-2023 19:07-0400 Diastolic blood pressure 43 mm[Hg] SCIENTIFIC RESEARCH ASSOCIATE-Andrea Carlisle SCIENTIFIC RESEARCH ASSOCIATE Work Phone: [facility] 07-14-2023 19:07-0400 Heart rate 92 /min SCIENTIFIC RESEARCH ASSOCIATE-Andrea Carlisle SCIENTIFIC RESEARCH ASSOCIATE Work Phone: [facility] 07-14-2023 19:07-0400 Respiratory rate 17 /min SCIENTIFIC RESEARCH ASSOCIATE-Andrea Carlisle SCIENTIFIC RESEARCH ASSOCIATE Work Phone: [facility] 07-14-2023 19:07-0400 SaO2% (BldA) [Mass fraction] 98 % SCIENTIFIC RESEARCH ASSOCIATE-C Barber Carlisle SCIENTIFIC RESEARCH ASSOCIATE Work Phone: [facility] 07-14-2023 19:07-0400 Systolic blood pressure 104 mm[Hg] SCIENTIFIC RESEARCH ASSOCIATE-C Barber Carlisle SCIENTIFIC RESEARCH ASSOCIATE Work Phone: [facility] 07-14-2023 17:25-0400 Inhaled oxygen flow rate 1.5 L/min SCIENTIFIC RESEARCH ASSOCIATE-C Barber Carlisle SCIENTIFIC RESEARCH ASSOCIATE Work Phone: [facility] 07-14-2023 15:23-0400 Body mass index (BMI) [Ratio] 29.3 kg/m2 SCIENTIFIC RESEARCH ASSOCIATE-C Barber Carlisle SCIENTIFIC RESEARCH ASSOCIATE Work Phone: [facility] 07-14-2023 15:23-0400 Body weight 80 kg SCIENTIFIC RESEARCH ASSOCIATE-C Barber Carlisle SCIENTIFIC RESEARCH ASSOCIATE Work Phone: [facility] 07-14-2023 15:15-0400 Body height 165.1 cm SCIENTIFIC RESEARCH ASSOCIATE-C Barber Carlisle SCIENTIFIC RESEARCH ASSOCIATE Work Phone: [facility] 07-14-2023 15:15-0400 Body temperature 97.4 [degF] SCIENTIFIC RESEARCH ASSOCIATE-C Barber Carlisle SCIENTIFIC RESEARCH ASSOCIATE Work Phone: [facility] 05-04-2023 14:31-0400 Body height 165.1 cm SCIENTIFIC RESEARCH ASSOCIATE-C Barber Carlisle SCIENTIFIC RESEARCH ASSOCIATE Work Phone: [facility] 05-04-2023 14:31-0400 Body mass index (BMI) [Ratio] 30.1 kg/m2 SCIENTIFIC RESEARCH ASSOCIATE-C Barber Carlisle SCIENTIFIC RESEARCH ASSOCIATE Work Phone: [facility] 05-04-2023 14:31-0400 Body temperature 98.4 [degF] SCIENTIFIC RESEARCH ASSOCIATE-C Barber Carlisle SCIENTIFIC RESEARCH ASSOCIATE Work Phone: [facility] 05-04-2023 14:31-0400 Body weight 82.1 kg SCIENTIFIC RESEARCH ASSOCIATE-C Barber Carlisle SCIENTIFIC RESEARCH ASSOCIATE Work Phone: [facility] 05-04-2023 14:31-0400 Diastolic blood pressure 63 mm[Hg] SCIENTIFIC RESEARCH ASSOCIATE-C Barber Carlisle SCIENTIFIC RESEARCH ASSOCIATE Work Phone: [facility] 05-04-2023 14:31-0400 Heart rate 78 /min SCIENTIFIC RESEARCH ASSOCIATE-C Barber Carlisle SCIENTIFIC RESEARCH ASSOCIATE Work Phone: [facility] 05-04-2023 14:31-0400 Inhaled oxygen flow rate 1 L/min SCIENTIFIC RESEARCH ASSOCIATE-C Barber Carlisle SCIENTIFIC RESEARCH ASSOCIATE Work Phone: [facility] 05-04-2023 14:31-0400 Respiratory rate 15 /min SCIENTIFIC RESEARCH ASSOCIATE-C Barber Carlisle SCIENTIFIC RESEARCH ASSOCIATE Work Phone: [facility] 05-04-2023 14:31-0400 SaO2% (BldA) [Mass fraction] 96 % SCIENTIFIC RESEARCH ASSOCIATE-C Barber Carlisle SCIENTIFIC RESEARCH ASSOCIATE Work Phone: [facility] 05-04-2023 14:31-0400 Systolic blood pressure 103 mm[Hg] SCIENTIFIC RESEARCH ASSOCIATE-C Barber Carlisle SCIENTIFIC RESEARCH ASSOCIATE Work Phone: [facility] 04-19-2023 22:11-0400 Diastolic blood pressure 67 mm[Hg] SCIENTIFIC RESEARCH ASSOCIATE-C Barber Carlisle SCIENTIFIC RESEARCH ASSOCIATE Work Phone: [facility] 04-19-2023 22:11-0400 Respiratory rate 17 /min SCIENTIFIC RESEARCH ASSOCIATE-C Barber Carlisle SCIENTIFIC RESEARCH ASSOCIATE Work Phone: [facility] 04-19-2023 22:11-0400 SaO2% (BldA) [Mass fraction] 100 % SCIENTIFIC RESEARCH ASSOCIATE-C Barber Carlisle SCIENTIFIC RESEARCH ASSOCIATE Work Phone: [facility] 04-19-2023 22:11-0400 Systolic blood pressure 121 mm[Hg] SCIENTIFIC RESEARCH ASSOCIATE-C Barber Carlisle SCIENTIFIC RESEARCH ASSOCIATE Work Phone: [facility] 04-19-2023 20:00-0400 Body temperature 97.5 [degF] SCIENTIFIC RESEARCH ASSOCIATE-C Barber Cralisle SCIENTIFIC RESEARCH ASSOCIATE Work Phone: [facility] 04-19-2023 20:00-0400 Heart rate 88 /min SCIENTIFIC RESEARCH ASSOCIATE-C Barber Carlisle SCIENTIFIC RESEARCH ASSOCIATE Work Phone: [facility] 04-19-2023 20:00-0400 Inhaled oxygen flow rate 2 L/min SCIENTIFIC RESEARCH ASSOCIATE-C Barber Carlisle SCIENTIFIC RESEARCH ASSOCIATE Work Phone: [facility] 04-19-2023 16:41-0400 Body height 165.1 cm SCIENTIFIC RESEARCH ASSOCIATE-C Barber Carlisle SCIENTIFIC RESEARCH ASSOCIATE Work Phone: [facility] 04-19-2023 16:41-0400 Body mass index (BMI) [Ratio] 31.8 kg/m2 SCIENTIFIC RESEARCH ASSOCIATE-C Barber Carlisle SCIENTIFIC RESEARCH ASSOCIATE Work Phone: [facility] 04-19-2023 16:41-0400 Body weight 86.9 kg SCIENTIFIC RESEARCH ASSOCIATE-C Barber Carlisle SCIENTIFIC RESEARCH ASSOCIATE Work Phone: [facility] 04-04-2023 14:11-0400 Body temperature 97.4 [degF] SCIENTIFIC RESEARCH ASSOCIATE-C Barber Carlisle SCIENTIFIC RESEARCH ASSOCIATE Work Phone: [facility] 04-04-2023 14:11-0400 Diastolic blood pressure 66 mm[Hg] SCIENTIFIC RESEARCH ASSOCIATE-C Barber Carilsle SCIENTIFIC RESEARCH ASSOCIATE Work Phone: [facility] 04-04-2023 14:11-0400 Heart rate 76 /min SCIENTIFIC RESEARCH ASSOCIATE-C Barber Carlisle SCIENTIFIC RESEARCH ASSOCIATE Work Phone: [facility] 04-04-2023 14:11-0400 Respiratory rate 18 /min SCIENTIFIC RESEARCH ASSOCIATE-C Barber Carlisle SCIENTIFIC RESEARCH ASSOCIATE Work Phone: [facility] 04-04-2023 14:11-0400 SaO2% (BldA) [Mass fraction] 97 % SCIENTIFIC RESEARCH ASSOCIATE-C Barber Carlisle SCIENTIFIC RESEARCH ASSOCIATE Work Phone: [facility] 04-04-2023 14:11-0400 Systolic blood pressure 124 mm[Hg] SCIENTIFIC RESEARCH ASSOCIATE-C Barber Carlisle SCIENTIFIC RESEARCH ASSOCIATE Work Phone: [facility] 03-23-2023 14:35-0400 Body height 165.1 cm SCIENTIFIC RESEARCH ASSOCIATE-C Barber Carlisle SCIENTIFIC RESEARCH ASSOCIATE Work Phone: [facility] 03-23-2023 14:35-0400 Body temperature 98.2 [degF] SCIENTIFIC RESEARCH ASSOCIATE-C Barber Carlisle SCIENTIFIC RESEARCH ASSOCIATE Work Phone: [facility] 03-23-2023 14:35-0400 Diastolic blood pressure 65 mm[Hg] SCIENTIFIC RESEARCH ASSOCIATE-C Barber Carlisle SCIENTIFIC RESEARCH ASSOCIATE Work Phone: [facility] 03-23-2023 14:35-0400 Heart rate 80 /min SCIENTIFIC RESEARCH ASSOCIATE-C Barber Solisson SCIENTIFIC RESEARCH ASSOCIATE Work Phone: [facility] 03-23-2023 14:35-0400 Respiratory rate 16 /min SCIENTIFIC RESEARCH ASSOCIATE-C Barber Solisson SCIENTIFIC RESEARCH ASSOCIATE Work Phone: [facility] 03-23-2023 14:35-0400 SaO2% (BldA) [Mass fraction] 99 % SCIENTIFIC RESEARCH ASSOCIATE-C Barber Carlisle SCIENTIFIC RESEARCH ASSOCIATE Work Phone: [facility] 03-23-2023 14:35-0400 Systolic blood pressure 100 mm[Hg] SCIENTIFIC RESEARCH ASSOCIATE-C Barber Solisson SCIENTIFIC RESEARCH ASSOCIATE Work Phone: [facility] 03-09-2023 15:29-0400 Body temperature 98.2 [degF] SCIENTIFIC RESEARCH ASSOCIATE-C Barber Solisson SCIENTIFIC RESEARCH ASSOCIATE Work Phone: [facility] 03-09-2023 15:29-0400 Diastolic blood pressure 63 mm[Hg] SCIENTIFIC RESEARCH ASSOCIATE-C Barber Carlisle SCIENTIFIC RESEARCH ASSOCIATE Work Phone: [facility] 03-09-2023 15:29-0400 Heart rate 89 /min SCIENTIFIC RESEARCH ASSOCIATE-C Barber Solisson SCIENTIFIC RESEARCH ASSOCIATE Work Phone: [facility] 03-09-2023 15:29-0400 SaO2% (BldA) [Mass fraction] 96 % SCIENTIFIC RESEARCH ASSOCIATE-C Barber Solisson SCIENTIFIC RESEARCH ASSOCIATE Work Phone: [facility] 03-09-2023 15:29-0400 Systolic blood pressure 117 mm[Hg] SCIENTIFIC RESEARCH ASSOCIATE-C Barber Solisson SCIENTIFIC RESEARCH ASSOCIATE Work Phone: [facility] 03-09-2023 15:26-0400 Body height 165.1 cm SCIENTIFIC RESEARCH ASSOCIATE-C Barber Solisson SCIENTIFIC RESEARCH ASSOCIATE Work Phone: [facility] 02-25-2023 13:27-0400 Heart rate 89 /min SCIENTIFIC RESEARCH ASSOCIATE-C Barber Carlisle SCIENTIFIC RESEARCH ASSOCIATE Work Phone: [facility] 02-25-2023 13:27-0400 Respiratory rate 20 /min SCIENTIFIC RESEARCH ASSOCIATE-C Barber Carlisle SCIENTIFIC RESEARCH ASSOCIATE Work Phone: [facility] 02-25-2023 11:49-0400 Body temperature 97.3 [degF] SCIENTIFIC RESEARCH ASSOCIATE-C Barber Carlisle SCIENTIFIC RESEARCH ASSOCIATE Work Phone: [facility] 02-25-2023 11:49-0400 Diastolic blood pressure 44 mm[Hg] SCIENTIFIC RESEARCH ASSOCIATE-C Barber Carlisle SCIENTIFIC RESEARCH ASSOCIATE Work Phone: [facility] 02-25-2023 11:49-0400 Inhaled oxygen flow rate 1 L/min SCIENTIFIC RESEARCH ASSOCIATE-C Barber Carlisle SCIENTIFIC RESEARCH ASSOCIATE Work Phone: [facility] 02-25-2023 11:49-0400 SaO2% (BldA) [Mass fraction] 98 % SCIENTIFIC RESEARCH ASSOCIATE-C Barber Carlisle SCIENTIFIC RESEARCH ASSOCIATE Work Phone: [facility] 02-25-2023 11:49-0400 Systolic blood pressure 103 mm[Hg] SCIENTIFIC RESEARCH ASSOCIATE-C Barber Carlisle SCIENTIFIC RESEARCH ASSOCIATE Work Phone: [facility] 02-25-2023 06:00-0400 Body mass index (BMI) [Ratio] 30.1 kg/m2 SCIENTIFIC RESEARCH ASSOCIATE-C Barber Carlisle SCIENTIFIC RESEARCH ASSOCIATE Work Phone: [facility] 02-25-2023 06:00-0400 Body weight 82.2 kg SCIENTIFIC RESEARCH ASSOCIATE-C Barber Carlisle SCIENTIFIC RESEARCH ASSOCIATE Work Phone: [facility] 02-21-2023 13:46-0400 Body height 165.1 cm SCIENTIFIC RESEARCH ASSOCIATE-C Barber Carlisle SCIENTIFIC RESEARCH ASSOCIATE Work Phone: [facility] 02-21-2023 07:00-0400 Inhaled oxygen concentration 50 % SCIENTIFIC RESEARCH ASSOCIATE-C Barber Carlisle SCIENTIFIC RESEARCH ASSOCIATE Work Phone: [facility] 02-18-2023 00:46-0400 Body temperature 96 [degF] SCIENTIFIC RESEARCH ASSOCIATE-C Barber Carlisle SCIENTIFIC RESEARCH ASSOCIATE Work Phone: [facility] 02-18-2023 00:46-0400 Diastolic blood pressure 65 mm[Hg] SCIENTIFIC RESEARCH ASSOCIATE-C Barber Carlisle SCIENTIFIC RESEARCH ASSOCIATE Work Phone: [facility] 02-18-2023 00:46-0400 Heart rate 70 /min SCIENTIFIC RESEARCH ASSOCIATE-C Barber Carlisle SCIENTIFIC RESEARCH ASSOCIATE Work Phone: [facility] 02-18-2023 00:46-0400 Respiratory rate 18 /min SCIENTIFIC RESEARCH ASSOCIATE-C Barber Carlisle SCIENTIFIC RESEARCH ASSOCIATE Work Phone: [facility] 02-18-2023 00:46-0400 SaO2% (BldA) [Mass fraction] 100 % SCIENTIFIC RESEARCH ASSOCIATE-C Barber Carlisle SCIENTIFIC RESEARCH ASSOCIATE Work Phone: [facility] 02-18-2023 00:46-0400 Systolic blood pressure 103 mm[Hg] SCIENTIFIC RESEARCH ASSOCIATE-C Barber Carlisle SCIENTIFIC RESEARCH ASSOCIATE Work Phone: [facility] 02-17-2023 22:25-0400 Inhaled oxygen concentration 100 % SCIENTIFIC RESEARCH ASSOCIATE-C Barber Carlisle SCIENTIFIC RESEARCH ASSOCIATE Work Phone: [facility] 02-17-2023 22:17-0400 Body height 165.1 cm SCIENTIFIC RESEARCH ASSOCIATE-C Barber Carlisle SCIENTIFIC RESEARCH ASSOCIATE Work Phone: [facility] 02-17-2023 22:17-0400 Body mass index (BMI) [Ratio] 33.8 kg/m2 SCIENTIFIC RESEARCH ASSOCIATE-C Barber Carlisle SCIENTIFIC RESEARCH ASSOCIATE Work Phone: [facility] 02-17-2023 22:17-0400 Body weight 92.3 kg SCIENTIFIC RESEARCH ASSOCIATE-C Barber Carlisle SCIENTIFIC RESEARCH ASSOCIATE Work Phone: [facility] 01-11-2023 13:49-0500 Body mass index (BMI) [Ratio] 32.5 kg/m2 SCIENTIFIC RESEARCH ASSOCIATE-C Barber Carlisle SCIENTIFIC RESEARCH ASSOCIATE Work Phone: [facility] 01-11-2023 13:49-0500 Body temperature 98.5 [degF] SCIENTIFIC RESEARCH ASSOCIATE-C Barber Carlisle SCIENTIFIC RESEARCH ASSOCIATE Work Phone: [facility] 01-11-2023 13:49-0500 Body weight 88.45 kg SCIENTIFIC RESEARCH ASSOCIATE-C Barber Carlisle SCIENTIFIC RESEARCH ASSOCIATE Work Phone: [facility] 01-11-2023 13:49-0500 Diastolic blood pressure 71 mm[Hg] SCIENTIFIC RESEARCH ASSOCIATE-C Barber Carlisle SCIENTIFIC RESEARCH ASSOCIATE Work Phone: [facility] 01-11-2023 13:49-0500 Heart rate 82 /min SCIENTIFIC RESEARCH ASSOCIATE-C Barber Carlisle SCIENTIFIC RESEARCH ASSOCIATE Work Phone: [facility] 01-11-2023 13:49-0500 Respiratory rate 17 /min SCIENTIFIC RESEARCH ASSOCIATE-C Barber Carlisle SCIENTIFIC RESEARCH ASSOCIATE Work Phone: [facility] 01-11-2023 13:49-0500 SaO2% (BldA) [Mass fraction] 98 % SCIENTIFIC RESEARCH ASSOCIATE-C Barber Carlisle SCIENTIFIC RESEARCH ASSOCIATE Work Phone: [facility] 01-11-2023 13:49-0500 Systolic blood pressure 110 mm[Hg] SCIENTIFIC RESEARCH ASSOCIATE-C Barber Carlisle SCIENTIFIC RESEARCH ASSOCIATE Work Phone: [facility] 11-11-2022 10:49-0500 Body height 165 cm SCIENTIFIC RESEARCH ASSOCIATE-C Barber Carlisle SCIENTIFIC RESEARCH ASSOCIATE Work Phone: [facility] Work Phone: 11-11-2022 10:35-0500 Body mass index (BMI) [Ratio] 31.9 kg/m2 SCIENTIFIC RESEARCH ASSOCIATE-C Barber Carlisle SCIENTIFIC RESEARCH ASSOCIATE Work Phone: [facility] 11-11-2022 10:35-0500 Body temperature 98 [degF] SCIENTIFIC RESEARCH ASSOCIATE-C Barber Carlisle SCIENTIFIC RESEARCH ASSOCIATE Work Phone: [facility] 11-11-2022 10:35-0500 Body weight 87.08 kg SCIENTIFIC RESEARCH ASSOCIATE-C Barber Carlisle SCIENTIFIC RESEARCH ASSOCIATE Work Phone: [facility] 11-11-2022 10:35-0500 Diastolic blood pressure 70 mm[Hg] SCIENTIFIC RESEARCH ASSOCIATE-C Barber Carlisle SCIENTIFIC RESEARCH ASSOCIATE Work Phone: [facility] 11-11-2022 10:35-0500 Heart rate 82 /min SCIENTIFIC RESEARCH ASSOCIATE-C Barber Carlisle SCIENTIFIC RESEARCH ASSOCIATE Work Phone: [facility] 11-11-2022 10:35-0500 Respiratory rate 18 /min SCIENTIFIC RESEARCH ASSOCIATE-C Barber Carlisle SCIENTIFIC RESEARCH ASSOCIATE Work Phone: [facility] 11-11-2022 10:35-0500 SaO2% (BldA) [Mass fraction] 91 % SCIENTIFIC RESEARCH ASSOCIATE-C Barber Lorethan SCIENTIFIC RESEARCH ASSOCIATE Work Phone: [facility] 11-11-2022 10:35-0500 Systolic blood pressure 115 mm[Hg] SCIENTIFIC RESEARCH ASSOCIATE-C Barber Carlisle SCIENTIFIC RESEARCH ASSOCIATE Work Phone: [facility] 07-27-2022 09:29-0400 Heart rate 93 /min DR TRACE MATTHEWS MD [address] 07-27-2022 09:13-0400 Body temperature 96.8 [degF] DR TRACE MATTHEWS MD [address] [place] [id number] 07-27-2022 09:13-0400 Diastolic Blood Pressure NBP [address] TRACE MATTHEWS MD [address] [place] [address] 07-27-2022 09:13-0400 Heart rate 99 /min DR TRACE MATTHEWS MD [address] 07-27-2022 09:13-0400 Mean blood pressure 83 mm[Hg] DR TRACE MATTHEWS MD [address] [place] [address] 07-27-2022 09:13-0400 Reason For Taking VItal Signs DR TRACE MATTHEWS MD [address] [place] [address] 07-27-2022 09:13-0400 Systolic Blood Pressure NBP [address] TRACE MATTHEWS MD [address] [place] [address] 07-27-2022 04:38-0400 Body temperature 97.7 [degF] DR TRACE MATTHEWS MD [address] [place] [address] 07-27-2022 04:38-0400 Diastolic Blood Pressure NBP [address] TRACE MATTHEWS MD [address] 07-27-2022 04:38-0400 Heart rate 79 /min DR TRACE MATTHEWS MD [address] [place] [address] 07-27-2022 04:38-0400 Mean blood pressure 75 mm[Hg] DR TRACE MATTHEWS MD [address] [place] [address] 07-27-2022 04:38-0400 Reason For Taking VItal Signs DR TRACE MATTHEWS MD [address] [place] [address] 07-27-2022 04:38-0400 Respiratory rate 16 /min DR TRACE MATTHEWS MD [address] [place] [address] 07-27-2022 04:38-0400 Systolic Blood Pressure NBP [address] TRACE MATTHEWS MD [address] [place] [address] 07-26-2022 21:08-0400 Body temperature 98.24 [degF] DR TRACE MATTHEWS MD [address] [place] [address] 07-26-2022 21:08-0400 Diastolic Blood Pressure NBP [address] TRACE MATTHEWS MD [address] [place] [address] 07-26-2022 21:08-0400 Heart rate 113 /min DR TRACE MATTHEWS MD [address] [place] [address] 07-26-2022 21:08-0400 Mean blood pressure 74 mm[Hg] DR TRACE MATTHEWS MD [address] [place] [address] 07-26-2022 21:08-0400 Reason For Taking VItal Signs DR TRACE MATTHEWS MD [address] [place] [address] 07-26-2022 21:08-0400 Respiratory rate 18 /min DR TRACE MATTHEWS MD [address] [place] [address] 07-26-2022 21:08-0400 Systolic Blood Pressure NBP [address] TRACE MATTHEWS MD [address] [place] [address] 07-26-2022 16:00-0400 Respiratory rate 16 /min DR TRACE MATTHEWS MD [address] [place] [address] 07-26-2022 09:18-0400 Heart rate 100 /min DR TRACE MATTHEWS MD [address] [place] [address] 07-26-2022 00:35-0400 Diastolic blood pressure 52 mm[Hg] DR TRACE MATTHEWS MD [address] [place] [address] 07-26-2022 00:35-0400 Mean blood pressure 71 mm[Hg] DR TRACE MATTHEWS MD [address] [place] [address] 07-26-2022 00:35-0400 Systolic blood pressure 108 mm[Hg] DR TRACE MATTHEWS MD [address] [place] [address] 07-25-2022 07:55-0400 Heart rate 86 /min DR TRACE MATTHEWS MD [address] [place] [address] 07-24-2022 23:40-0400 Diastolic blood pressure 57 mm[Hg] DR TRACE MATTHEWS MD [address] [place] [address] 07-24-2022 23:40-0400 Mean blood pressure 81 mm[Hg] DR TRACE MATTHEWS MD [address] [place] [address] 07-24-2022 23:40-0400 Systolic blood pressure 128 mm[Hg] DR TRACE MATTHEWS MD [address] [place] [address] 07-24-2022 20:26-0400 Diastolic blood pressure 54 mm[Hg] DR TRACE MATTHEWS MD [address] [place] [address] 07-24-2022 20:26-0400 Mean blood pressure 77 mm[Hg] DR TRACE MATTHEWS MD [address] [place] [address] 07-24-2022 20:26-0400 Systolic blood pressure 124 mm[Hg] DR TRACE MATTHEWS MD [address] [place] [address] 07-21-2022 13:01-0400 Body temperature 96.62 [degF] DR TRACE MATTHEWS MD [address] [place] [address] 07-15-2022 11:49-0400 Diastolic blood pressure 45 mm[Hg] DR TRACE MATTHEWS MD [address] [place] [address] 07-15-2022 11:49-0400 Mean blood pressure 59 mm[Hg] DR TRACE MATTHEWS MD [address] [place] [address] 07-15-2022 11:49-0400 Systolic blood pressure 106 mm[Hg] DR TRACE MATTHEWS MD [address] [place] [address] 07-15-2022 09:23-0400 Diastolic blood pressure 80 mm[Hg] DR TRACE MATTHEWS MD [address] [place] [address] 07-15-2022 09:23-0400 Mean blood pressure 111 mm[Hg] DR TRACE MATTHEWS MD [address] [place] [address] 07-15-2022 09:23-0400 Systolic blood pressure 157 mm[Hg] DR TRACE MATTHEWS MD [address] [place] [address] 07-15-2022 08:53-0400 Diastolic blood pressure 85 mm[Hg] DR TRACE MATTHEWS MD [address] [place] [address] 07-15-2022 08:53-0400 Mean blood pressure 113 mm[Hg] DR TRACE MATTHEWS MD [address] [place] [address] 07-15-2022 08:53-0400 Systolic blood pressure 153 mm[Hg] DR TRACE MATTHEWS MD [address] [place] [address] 07-15-2022 04:10-0400 SaO2% (BldA) [Mass fraction] 97.5 % DR TRACE MATTHEWS MD [facility] 07-13-2022 19:08-0400 SaO2% (BldA) [Mass fraction] 98.9 % DR TRACE MATHTEWS MD [facility] 07-13-2022 17:39-0400 SaO2% (BldA) [Mass fraction] 99.1 % DR TRACE MATTHEWS MD [facility] 07-13-2022 16:25-0400 Body temperature 97.84 [degF] DR TRACE MATTHEWS MD [address] [place] [address] 07-13-2022 16:20-0400 Body temperature 97.77 [degF] DR TRACE MATTHEWS MD [facility] 07-13-2022 16:15-0400 Body temperature 97.7 [degF] DR TRACE MATTHEWS MD [facility] 07-13-2022 11:30-0400 Body height [address] TRACE MATTHEWS MD [address] [place] [address] 07-13-2022 11:30-0400 Body weight 98.[address] [...] blood pressure 76 mm[Hg] MARIANA RAMOS MD [facility] 07-11-2022 10:00-0400 Heart rate 89 /min MARIANA RAMOS MD [facility] 07-11-2022 10:00-0400 Mean blood pressure 97 mm[Hg] MARIANA RAMOS MD [facility] 07-11-2022 10:00-0400 Systolic blood pressure 139 mm[Hg] MARIANA RAMOS MD [facility] 07-11-2022 08:30-0400 Diastolic blood pressure 74 mm[Hg] MARIANA RAMOS MD [facility] 07-11-2022 08:30-0400 Heart rate 92 /min MARIANA RAMOS MD [facility] 07-11-2022 08:30-0400 Respiratory rate 16 /min MARIANA RAMOS MD [facility] 07-11-2022 08:30-0400 Systolic blood pressure 147 mm[Hg] MARIANA RAMOS MD [facility] 07-11-2022 07:34-0400 Body temperature 98.42 [degF] MARIANA RAMOS MD [facility] 07-11-2022 07:34-0400 Diastolic blood pressure 86 mm[Hg] MARIANA RAMOS MD [facility] 07-11-2022 07:34-0400 Heart rate 92 /min MARIANA RAMOS MD [facility] 07-11-2022 07:34-0400 Mean blood pressure 110 mm[Hg] MARIANA RAMOS MD [facility] 07-11-2022 07:34-0400 Respiratory rate 18 /min MARIANA RAMOS MD [facility] 07-11-2022 07:34-0400 Systolic blood pressure 158 mm[Hg] MARIANA RAMOS MD [facility] 12-04-2021 13:19-0500 Diastolic blood pressure 79 mm[Hg] LEONA RIOS MD [facility] 12-04-2021 13:19-0500 Heart rate 101 /min LEONA RIOS MD [facility] 12-04-2021 13:19-0500 Reason For Taking VItal Signs LEONA RIOS MD [facility] 12-04-2021 13:19-0500 Respiratory rate 18 /min LEONA RIOS MD [facility] 12-04-2021 13:19-0500 Systolic blood pressure 140 mm[Hg] LEONA RIOS MD [facility] 12-04-2021 11:12-0500 Diastolic blood pressure 76 mm[Hg] LEONA RIOS MD [facility] 12-04-2021 11:12-0500 Heart rate 106 /min LEONA RIOS MD [facility] 12-04-2021 11:12-0500 Reason For Taking VItal Signs LEONA RIOS MD [facility] 12-04-2021 11:12-0500 Respiratory rate 18 /min LEONA RIOS MD [facility] 12-04-2021 11:12-0500 Systolic blood pressure 139 mm[Hg] LEONA RIOS MD [facility] 12-04-2021 08:20-0500 Body temperature 98.24 [degF] LEONA RIOS MD [facility] 12-04-2021 08:20-0500 Diastolic blood pressure 79 mm[Hg] LEONA RIOS MD [facility] 12-04-2021 08:20-0500 Heart rate 98 /min LEONA RIOS MD [facility] 12-04-2021 08:20-0500 Respiratory rate 16 /min LEONA RIOS MD [facility] 12-04-2021 08:20-0500 Systolic blood pressure 145 mm[Hg] LEONA RIOS MD [facility] 09-15-2021 20:35-0400 Diastolic blood pressure 80 mm[Hg] JANKI ADAMS MD [facility] 09-15-2021 20:35-0400 Heart rate 100 /min JANKI ADAMS MD [facility] 09-15-2021 20:35-0400 Mean blood pressure 103 mm[Hg] JANKI ADAMS MD [facility] 09-15-2021 20:35-0400 Respiratory rate 22 /min JANKI ADAMS MD [facility] 09-15-2021 20:35-0400 Systolic blood pressure 148 mm[Hg] JANKI ADAMS MD [facility] 09-15-2021 19:24-0400 SaO2% (BldA) [Mass fraction] 99 % JANKI ADAMS MD [facility] 09-15-2021 18:26-0400 Body temperature 99.14 [degF] JANKI ADAMS MD [facility] 09-15-2021 18:26-0400 Body weight 96 kg JANKI ADAMS MD [facility] 09-15-2021 18:26-0400 Diastolic blood pressure 88 mm[Hg] JANKI ADAMS MD [facility] 09-15-2021 18:26-0400 Heart rate 107 /min JANKI ADAMS MD [facility] 09-15-2021 18:26-0400 Respiratory rate 20 /min JANKI ADAMS MD [facility] 09-15-2021 18:26-0400 Systolic blood pressure 156 mm[Hg] JANKI ADAMS MD [facility] Encounters Encounter Date Encounter Type Care Provider Facility Start: 09-26-2025 End: 09-26-2025 ambulatory [facility] Facility:[facility] Start: 09-25-2025 ambulatory Jonathan Gilma Jewell ty:[facility] Start: 09-18-2025 ambulatory Jonathan Gilma Hinds Facili ty:[facility] Start: 09-11-2025 ambulatory Jonathan Gilma Hinds Facili ty:[facility] Start: 09-10-2025 End: 09-10-2025 Emergency department patient visit Royce Vigil Facility:[facility] Start: 09-09-2025 ambulatory Jonathan Gilma ELMORE Facili ty:[facility] Start: 09-06-2025 ambulatory Jonathan Gilma ELMORE Facili ty:[facility] Start: 09-04-2025 ambulatory Jonathan Gilma ELMORE Facili ty:[facility] Start: 11-01-2023 Patient encounter status Mralon little Dionna CHUGRAIN 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 Work Phone: [facility] Work Phone: Start: 10-31-2023 End: 10-31-2023 ambulatory ELIDA VILLAREAL [facility] Start: 10-28-2023 End: 11-02-2023 ambulatory RITU HARRELL [facility] Start: 10-28-2023 End: 10-28-2023 ambulatory BARBER DUNAWAY [facility] Start: 10-28-2023 End: 10-28-2023 Encounter for other preprocedural examination BARBER DUNAWAY [facility] Start: 10-28-2023 End: 10-28-2023 Admission to establishment [facility] Work Phone: Start: 10-28-2023 End: 10-28-2023 Subsequent hospital visit by physician Marnie [id number] Cr Nonv1 Holter/Ecg Resource [facility] Comment on above: Encounter for preadm ission testing Start: 10-20-2023 End: 10-20-2023 ambulatory BARBER DUNAWAY [facility] Start: 10-17-2023 End: 10-17-20[facility] Start: 10-17-2023 End: 10-17-2023 Office outpatient visit 40 minutes Varsha Sotelo MD Work Phone: [facility] Comment on above: Colovaginal fistula (Primary Dx) Start: 10-11-2023 End: 10-11-[address] Jonathan Dillard Sr. Work Phone: [facility] Work Phone: Start: 10-11-2023 End: 10-11-[address] Jonathan Dillard Sr. Work Phone: [facility] Ultrasound Work Phone: Start: 10-11-[address] Jonathan acevedo Sr. Work Phone: [facility] Start: 10-04-[address] Jonathan acevedo Sr. Work Phone: [facility] Start: 10-03-[address] Jonathan acevedo Sr. Work Phone: [facility] Start: 09-15-2023 End: 09-28-2023 Encounter for preprocedural cardiovascular examination VARSHA SOTELO [facility] Start: 09-15-2023 End: 09-28-2023 Evaluation and management of inpatient Velvet Jerez DO Work Phone: [facility] Start: 09-15-2023 End: 09-28-2023 Patient encounter status Velvet Jerez DO Work Phone: [facility] Start: 09-15-2023 Non-patient / Non-visit Dr. Kalen Quintero. Work Phone: [facility] Start: 09-15-2023 Non-patient / Non-visit Dr. Kalen Hinds Work Phone: [facility] Work Phone: Start: 09-14-2023 End: 09-15-2023 Emergency department patient visit Dr. Jonathan Dillard Sr. Work Phone: [facility]Emergency [facility] Work Phone: Start: 09-13-2023 End: 09-13-[address] Jonathan Dillard SrChe Work Phone: [facility] Work Phone: Start: 09-13-2023 End: 09-13-[address] Jonathan Dillard Sr. Work Phone: [facility] Start: 09-13-[address] Jonathan acevedo Sr. Work Phone: [facility] Start: 09-09-2023 End: 09-09-[address] Jonathan Dillard Sr. Work Phone: [facility]-Laboratory, Specimen Work Phone: Start: 09-08-[address] Jonathan Dillard Sr. Work Phone: [facility] Start: 09-08-2023 End: 09-08-[address] Jonathan Dillard Sr. Work Phone: [facility] Work Phone: Start: 08-31-2023 End: 08-31-2023 ambulatory [facility] Work Phone: Start: 08-31-2023 End: 08-31-2023 Departed Referred [facility] Start: 08-31-2023 Registered Referred MD Jonathan ELMORE [facility] Start: 08-29-2023 End: 08-30-[address] OSEI WOODWARD MD Facility:A Start: 08-29-2023 End: 08-29-[address] OSEI WOODWARD MD [facility] Start: 08-17-2023 End: 08-18-[address] MRAK JEREZ MD Facility:B Start: 08-17-2023 End: 08-17-[address] MARK JEREZ MD [facility] Start: 08-16-2023 End: 08-16-2023 ambulatory MD Jonathan Dillard [facility] Work Phone: Start: 08-16-2023 End: 08-16-2023 Departed Referred MD Jonathan ELMORE [facility] Start: 08-15-[address] MARK LOPEZ MD Facility:B Start: 08-15-2023 End: 08-16-[address] MARK JEREZ MD Facility:B Start: 08-15-2023 End: 08-15-[address] MARK JEREZ MD [facility] Start: 08-09-2023 End: 08-10-2023 Emergency department patient visit MD Jonathan ELMORE [facility]Emer[facility] Work Phone: Start: 07-14-2023 End: 07-14-2023 Emergency department patient visit SCI[employer]EARCH ASSOCIATE-C Barber Carlisle SCIENTIFIC RESEARCH ASSOCIATE Work Phone: [facility] Work Phone: Start: 06-28-2023 End: 06-28-2023 ambulatory MD Jonathan Dillard [facility] Work Phone: Start: 06-28-2023 End: 06-28-2023 Departed Referred MD Jonathan ELMORE [facility] Start: 06-28-2023 Registered Referred SCIENTIFIC RESEARCH ASSOCIATE-C Flora Carlisle SCIENTIFIC RESEARCH ASSOCIATE Work Phone: [facility] Start: 06-13-2023 End: 06-13-2023 ambulatory SCIENTIFIC RESEARCH ASSOCIATE-C Barber Carlisle SCIENTIFIC RESEARCH ASSOCIATE Work Phone: [facility] Work Phone: Start: 06-13-2023 End: 06-13-2023 Departed Referred SCIENTIFIC RESEARCH ASSOCIATE-C Barber Carlisle SCIENTIFIC RESEARCH ASSOCIATE Work Phone: [facility] Start: 05-04-2023 End: 05-04-2023 Patient encounter procedure SCIENTIFIC RESEARCH ASSOCIATE-C Barber Carlisle SCIENTIFIC RESEARCH ASSOCIATE Work Phone: [facility] Work Phone: Start: 05-04-2023 Registered Recurring SCIENTIFIC RESEARCH ASSOCIATE-C Conor Carlisle SCIENTIFIC RESEARCH ASSOCIATE Work Phone: [facility] Start: 04-19-2023 End: 04-19-2023 Emergency department patient visit SCIENTIFIC RESEARCH ASSOCIATE-C Barber Carlisle SCIENTIFIC RESEARCH ASSOCIATE Work Phone: [facility]-Emergency Department Start: 04-12-2023 End: 04-12-2023 ambulatory SCIENTIFIC RESEARCH ASSOCIATE-C Barber Carlisle SCIENTIFIC RESEARCH ASSOCIATE Work Phone: [facility] Work Phone: Start: 04-12-2023 End: 04-12-2023 Departed Referred SCIENTIFIC RESEARCH ASSOCIATE-C Barber Carlisle SCIENTIFIC RESEARCH ASSOCIATE Work Phone: [facility] Start: 04-04-2023 End: 04-04-2023 Patient encounter procedure SCIENTIFIC RESEARCH ASSOCIATE-C Barber Carlisle SCIENTIFIC RESEARCH ASSOCIATE Work Phone: [facility]-Laboratory, Specimen Start: 04-04-2023 End: 04-04-2023 Patient encounter procedure SCIENTIFIC RESEARCH ASSOCIATE-C Barber Carlisle SCIENTIFIC RESEARCH ASSOCIATE Work Phone: [facility] Start: 03-28-2023 End: 03-28-2023 ambulatory SCIENTIFIC RESEARCH ASSOCIATE-C Barber Carlisle SCIENTIFIC RESEARCH ASSOCIATE Work Phone: [facility] Work Phone: Start: 03-28-2023 End: 03-28-2023 Departed Referred SCIENTIFIC RESEARCH ASSOCIATE-C Barber Carlisle SCIENTIFIC RESEARCH ASSOCIATE Work Phone: [facility] Start: 03-28-2023 Registered Referred SCIENTIFIC RESEARCH ASSOCIATE-C Flora Carlisle SCIENTIFIC RESEARCH ASSOCIATE Work Phone: [facility] Start: 03-23-2023 End: 03-23-2023 Patient encounter procedure SCIENTIFIC RESEARCH ASSOCIATE-C Barber Carlisle SCIENTIFIC RESEARCH ASSOCIATE Work Phone: [facility] Start: 03-18-2023 End: 03-18-2023 ambulatory SCIENTIFIC RESEARCH ASSOCIATE-C Barber Carlisle SCIENTIFIC RESEARCH ASSOCIATE Work Phone: [facility] Work Phone: Start: 03-18-2023 End: 03-18-2023 Patient encounter procedure SCIENTIFIC RESEARCH ASSOCIATE-C Barber Carlisle SCIENTIFIC RESEARCH ASSOCIATE Work Phone: [facility] Start: 03-09-2023 Registered Recurring SCIENTIFIC RESEARCH ASSOCIATE-C Conor Carlisle SCIENTIFIC RESEARCH ASSOCIATE Work Phone: [facility] Start: 03-09-2023 End: 03-09-2023 Patient encounter procedure SCIENTIFIC RESEARCH ASSOCIATE-C Barber Carlisle SCIENTIFIC RESEARCH ASSOCIATE Work Phone: [facility] Start: 03-08-2023 Registered Referred SCIENTIFIC RESEARCH ASSOCIATE-C Flora Carlisle SCIENTIFIC RESEARCH ASSOCIATE Work Phone: [facility] Start: 03-04-2023 Registered Referred SCIENTIFIC RESEARCH ASSOCIATE-C Flora Carlisle SCIENTIFIC RESEARCH ASSOCIATE Work Phone: [facility] Start: 02-28-2023 End: 02-28-2023 ambulatory SCIENTIFIC RESEARCH ASSOCIATE-C Barber Carlisle SCIENTIFIC RESEARCH ASSOCIATE Work Phone: [facility] Work Phone: Start: 02-28-2023 End: 02-28-2023 Departed Referred SCIENTIFIC RESEARCH ASSOCIATE-C Barber Carlisle SCIENTIFIC RESEARCH ASSOCIATE Work Phone: [facility] Start: 02-25-2023 Non-patient / Non-visit SCIENTIFIC RESEARCH ASSOCIATE-C Deepika Carlisle SCIENTIFIC RESEARCH ASSOCIATE Work Phone: [facility] Start: 02-24-2023 Non-patient / Non-visit SCIENTIFIC RESEARCH ASSOCIATE-C L asif Solisson SCIENTIFIC RESEARCH ASSOCIATE Work Phone: [facility] Start: 02-23-2023 Non-patient / Non-visit SCIENTIFIC RESEARCH ASSOCIATE-C L asif Solisson SCIENTIFIC RESEARCH ASSOCIATE Work Phone: [facility] Start: 02-23-2023 Non-patient / Non-visit SCIENTIFIC RESEARCH ASSOCIATE-C L asif Solisson SCIENTIFIC RESEARCH ASSOCIATE Work Phone: [facility] Start: 02-22-2023 Non-patient / Non-visit SCIENTIFIC RESEARCH ASSOCIATE-C L asif Solisson SCIENTIFIC RESEARCH ASSOCIATE Work Phone: [facility] Start: 02-22-2023 Non-patient / Non-visit SCIENTIFIC RESEARCH ASSOCIATE-C L indalivia Lorson SCIENTIFIC RESEARCH ASSOCIATE Work Phone: [facility] Start: 02-21-2023 Non-patient / Non-visit SCIENTIFIC RESEARCH ASSOCIATE-C L asif Solisson SCIENTIFIC RESEARCH ASSOCIATE Work Phone: [facility] Start: 02-21-2023 Non-patient / Non-visit SCIENTIFIC RESEARCH ASSOCIATE-C L indalivia Solisson SCIENTIFIC RESEARCH ASSOCIATE Work Phone: [facility] Start: 02-20-2023 Non-patient / Non-visit SCIENTIFIC RESEARCH ASSOCIATE-C L indsey Lorson SCIENTIFIC RESEARCH ASSOCIATE Work Phone: [facility] Start: 02-20-2023 Non-patient / Non-visit SCIENTIFIC RESEARCH ASSOCIATE-C L indalivia Lorson SCIENTIFIC RESEARCH ASSOCIATE Work Phone: [facility] Start: 02-20-2023 Non-patient / Non-visit SCIENTIFIC RESEARCH ASSOCIATE-C L indsey Lorson SCIENTIFIC RESEARCH ASSOCIATE Work Phone: [facility] Start: 02-19-2023 Non-patient / Non-visit SCIENTIFIC RESEARCH ASSOCIATE-C L asif Solisson SCIENTIFIC RESEARCH ASSOCIATE Work Phone: [facility] Start: 02-19-2023 Non-patient / Non-visit SCIENTIFIC RESEARCH ASSOCIATE-C L asif Solisson SCIENTIFIC RESEARCH ASSOCIATE Work Phone: [facility] Start: 02-18-2023 Non-patient / Non-visit SCIENTIFIC RESEARCH ASSOCIATE-C L asif Solisson SCIENTIFIC RESEARCH ASSOCIATE Work Phone: [facility] Start: 02-18-2023 Non-patient / Non-visit SCIENTIFIC RESEARCH ASSOCIATE-C L asif Solisson SCIENTIFIC RESEARCH ASSOCIATE Work Phone: [facility] Start: 02-18-2023 Non-patient / Non-visit SCIENTIFIC RESEARCH ASSOCIATE-C L indalivia Lorson SCIENTIFIC RESEARCH ASSOCIATE Work Phone: [facility] Start: 02-18-2023 End: 02-25-2023 Evaluation and management of inpatient SCIENTIFIC RESEARCH ASSOCIATE-C Barber Carlisle SCIENTIFIC RESEARCH ASSOCIATE Work Phone: [facility]Intensive [facility] Start: 02-07-2023 End: 02-07-2023 ambulatory SCIENTIFIC RESEARCH ASSOCIATE-C Barber Carlisle SCIENTIFIC RESEARCH ASSOCIATE Work Phone: [facility] Work Phone: Start: 02-07-2023 End: 02-07-2023 Departed Referred SCIENTIFIC RESEARCH ASSOCIATE-C Barber Carlisle SCIENTIFIC RESEARCH ASSOCIATE Work Phone: [facility] Start: 02-07-2023 Registered Referred SCIENTIFIC RESEARCH ASSOCIATE-C Flora Carlisle SCIENTIFIC RESEARCH ASSOCIATE Work Phone: [facility] Start: 01-11-2023 End: 01-11-2023 Patient encounter procedure SCIENTIFIC RESEARCH ASSOCIATE-C Barber Carlisle SCIENTIFIC RESEARCH ASSOCIATE Work Phone: [facility] Start: 01-11-2023 Registered Recurring SCIENTIFIC RESEARCH ASSOCIATE-C Conor Carlisle SCIENTIFIC RESEARCH ASSOCIATE Work Phone: [facility] Start: 11-11-2022 End: 11-11-2022 Patient encounter procedure SCIENTIFIC RESEARCH ASSOCIATE-C Barber Carlisle SCIENTIFIC RESEARCH ASSOCIATE Work Phone: [facility] Start: 11-01-2022 End: 11-01-2022 ambulatory SCIENTIFIC RESEARCH ASSOCIATE-C Barber Carlisle SCIENTIFIC RESEARCH ASSOCIATE Work Phone: [facility] Work Phone: Start: 11-01-2022 End: 11-01-2022 Departed Referred SCIENTIFIC RESEARCH ASSOCIATE-C Barber Carlisle SCIENTIFIC RESEARCH ASSOCIATE Work Phone: [facility] Start: 11-01-2022 Registered Referred SCIENTIFIC RESEARCH ASSOCIATE-C Flora Carlisle SCIENTIFIC RESEARCH ASSOCIATE Work Phone: [facility] Start: 10-26-2022 End: 10-27-2022 ambulatory TRACE MATTHEWS MD Facility:[facility] Start: 10-26-2022 End: 10-26-[address] TRACE MATTHEWS MD [facility] Start: 10-05-2022 End: 10-05-2022 Patient encounter procedure RENETTA ASTORGA STEAM STATION SUPERVISOR-GRAIN OILSEED OR PASTURE FARM WORKER [facility] Start: 10-05-2022 End: 10-06-2022 ambulatory SCIENTIFIC RESEARCH ASSOCIATE-C Barber Carlisle SCIENTIFIC RESEARCH ASSOCIATE Work Phone: [facility] Work Phone: Start: 10-05-2022 End: 10-05-2022 Departed Referred SCIENTIFIC RESEARCH ASSOCIATE-C Barber Carlisle SCIENTIFIC RESEARCH ASSOCIATE Work Phone: [facility] Start: 10-05-2022 Registered Referred [facility] Start: 09-29-2022 End: 09-29-2022 ambulatory SCIENTIFIC RESEARCH ASSOCIATE-C Barber Carlisle SCIENTIFIC RESEARCH ASSOCIATE Work Phone: [facility] Work Phone: Start: 09-29-2022 End: 09-29-2022 Departed Referred SCIENTIFIC RESEARCH ASSOCIATE-C Barber Carlisle SCIENTIFIC RESEARCH ASSOCIATE Work Phone: [facility] Start: 09-29-2022 Registered Referred [facility] Start: 09-09-2022 End: 09-09-2022 Patient encounter procedure RENETTA ASTORGA STEAM STATION SUPERVISOR-[facility] Start: 09-08-2022 End: 09-08-2022 ambulatory [facility] Work Phone: Start: 09-08-2022 End: 09-08-2022 Departed Referred [facility] Start: 09-08-2022 Registered Referred [facility] Start: 09-01-2022 End: 09-01-2022 ambulatory [facility] Work Phone: Start: 09-01-2022 End: 09-01-2022 Departed Referred [facility] Start: 09-01-2022 Registered Referred [facility] Start: 08-26-2022 End: 08-26-2022 ambulatory [facility] Work Phone: Start: 08-26-2022 End: 08-26-2022 Departed Referred [facility] Start: 08-12-2022 End: 08-12-[address] TRACE MATTHEWS MD [facility] Start: 08-10-2022 End: 08-10-2022 Admission to same day surgery center BARBER CARLISLE STEAM STATION SUPERVISOR-GRAIN OILSEED OR PASTURE FARM WORKER [facility] Start: 08-02-2022 Registered Referred [facility] Start: 07-14-2022 End: 07-14-2022 Admission to same day surgery center ARYAN VAZ STEAM STATION SUPERVISOR-GRAIN OILSEED OR PASTURE FARM WORKER [facility] Start: 07-11-2022 End: 07-27-2022 Evaluation and management of inpatient DR TRACE MATTHEWS MD [facility] Start: 07-11-2022 End: 07-11-2022 Emergency department patient visit MARIANA RAMOS MD [facility] Start: 12-04-2021 End: 12-04-2021 Emergency department patient visit LEONA RIOS MD [facility] Start: 09-15-2021 End: 09-15-2021 Emergency department patient visit JANKI ADAMS MD [facility] Start: 09-15-2021 End: 09-15-2021 Patient encounter procedure BARBER CARLISLE STEAM STATION SUPERVISOR-GRAIN OILSEED OR PASTURE FARM WORKER [facility] Start: 08-15-2017 Ambulatory Ellis Conrad [...] 09-28-2023 Sars-cov-2 detection by dna/rna Nancy Treviño STEAM STATION SUPERVISOR-[facility] Work Phone: Start: 09-28-2023 Blood count [...] 09-27-2023 Sars-cov-2 detection by dna/rna Nancy Treviño STEAM STATION SUPERVISOR-[facility] Work Phone: Start: 09-27-2023 CBC panel [...] MD Work Phone: Start: 09-22-2023 CASE REQUEST COMMUNITY REPRESENTATIVE BARBER CARLISLE Start: 09-22-2023 Glucose [Mass/volume] in [...] 09-21-2023 Glucose [Mass/volume] in Serum or Plasma ABRBER CARLISLE Start: 09-21-2023 Glucose quantitative blood xcpt [...] of abdomen and pelvis with intravenous contrast SCIENTIFIC RESEARCH ASSOCIATE-C Barber Carlisle SCIENTIFIC RESEARCH ASSOCIATE Work Phone: Start: 04-19-2023 Computed tomography of abdomen and pelvis with intravenous contrast SCIENTIFIC RESEARCH ASSOCIATE-C Barber Irmaethan SCIENTIFIC RESEARCH ASSOCIATE Work Phone: Start: 04-12-2023 Urine culture SCIENTIFIC RESEARCH ASSOCIATE-C Barber Carlisle SCIENTIFIC RESEARCH ASSOCIATE Work Phone: Start: 03-18-2023 Bilateral mammography SCIENTIFIC RESEARCH ASSOCIATE-C Barber Carlisle SCIENTIFIC RESEARCH ASSOCIATE Work Phone: Start: 03-18-2023 Ultrasonography of breast SCIENTIFIC RESEARCH ASSOCIATE-C Barber Solisethan SCIENTIFIC RESEARCH ASSOCIATE Work Phone: Start: 03-18-2023 CT of soft tissues of neck with contrast SCIENTIFIC RESEARCH ASSOCIATE-C Barber Orestes SCIENTIFIC RESEARCH ASSOCIATE Work Phone: Start: 02-20-2023 Plain chest X-ray SCIENTIFIC RESEARCH ASSOCIATE-C Barber Carlisle SCIENTIFIC RESEARCH ASSOCIATE Work Phone: Start: 02-19-2023 Plain chest X-ray SCIENTIFIC RESEARCH ASSOCIATE-C Barber Carlisle SCIENTIFIC RESEARCH ASSOCIATE Work Phone: Start: 02-18-2023 Ultrasonography of thorax SCIENTIFIC RESEARCH ASSOCIATE-C Barber Carlisle SCIENTIFIC RESEARCH ASSOCIATE Work Phone: Start: 02-18-2023 CT of chest without contrast SCIENTIFIC RESEARCH ASSOCIATE-C Carlton Carlisle SCIENTIFIC RESEARCH ASSOCIATE Work Phone: Start: 02-17-2023 CT of head without contrast SCIENTIFIC RESEARCH ASSOCIATE-C Barber Carlisle SCIENTIFIC RESEARCH ASSOCIATE Work Phone: Start: 02-17-2023 Plain chest X-ray SCIENTIFIC RESEARCH ASSOCIATE-C Barber Carlisle SCIENTIFIC RESEARCH ASSOCIATE Work Phone: Start: 07-13-2022 Excision of cervical intervertebral disc BARBER CARLISLE STEAM STATION SUPERVISOR-GRAIN OILSEED OR PASTURE FARM WORKER Comment on above: ACDF Appendectomy Kandi Sharma Appendectomy BARBER ORESTES STEAM STATION SUPERVISOR-GRAIN OILSEED OR PASTURE FARM WORKER Comment on above: left water taken off Arthroscopic knee operation BARBER CARLISLE STEAM STATION SUPERVISOR-GRAIN OILSEED OR PASTURE FARM WORKER Comment on above: right Arthroscopy of knee Kandi rai Bacteria identified in Blood by Culture SCIENTIFIC RESEARCH ASSOCIATE-C Barber Orestes SCIENTIFIC RESEARCH ASSOCIATE Work Phone: Cardiac catheter (physical object) BARBER SOLISETHAN STEAM STATION SUPERVISOR-GRAIN OILSEED OR PASTURE FARM WORKER Comment on above: years ago Cardiac catheterization Marilyn Sharma Cataract surgery Kandi Castorena er Cholecystectomy Kandi Francis r Cholecystectomy BARBER ALLA ON STEAM STATION SUPERVISOR-GRAIN OILSEED OR PASTURE FARM WORKER Clostridium difficile detection SCIENTIFIC RESEARCH ASSOCIATE-C Barber Carlisle SCIENTIFIC RESEARCH ASSOCIATE Work Phone: Colonoscopy Kandi Sharma Colonoscopy BARBER ORESTES STEAM STATION SUPERVISOR-GRAIN OILSEED OR PASTURE FARM WORKER Esophagogastroduodenoscopy E gerson Sharma Esophagogastroduodenoscopy Deepika CARLISLE STEAM STATION SUPERVISOR-GRAIN OILSEED OR PASTURE FARM WORKER Ligation of fallopian tube E gerson Sharma Ligation of fallopian tube Deepika CARLISLE STEAM STATION SUPERVISOR-GRAIN OILSEED OR PASTURE FARM WORKER Lumpectomy of breast Kandi dorantes Lumpectomy of breast BARBER CARLISLE STEAM STATION SUPERVISOR-GRAIN OILSEED OR PASTURE FARM WORKER Comment on above: left None (qualifier value) FLORA CARLISLE STEAM STATION SUPERVISOR-GRAIN OILSEED OR PASTURE FARM WORKER Phacoemulsification of cataract with intraocular lens implantation BARBER CARLISLE STEAM STATION SUPERVISOR-GRAIN OILSEED OR PASTURE FARM WORKER Comment on above: both eyes Urine culture Urine culture SCIENTIFIC RESEARCH ASSOCIATE-C Barber Carlisle SCIENTIFIC RESEARCH ASSOCIATE Work Phone: Urine culture SCIENTIFIC RESEARCH ASSOCIATE-C Barber Solisethan SCIENTIFIC RESEARCH ASSOCIATE Work Phone: Viral antigen assay SCIENTIFIC RESEARCH ASSOCIATE-C Bhavna godfrey Solisethan SCIENTIFIC RESEARCH ASSOCIATE Work Phone: Plan of Treatment Date Care Activity Detail Author Start: 10-31-2024 Creatinine measurement Creatinine Le abiodun [facility] Start: 10-31-2024 Potassium measurement Potassium Arun poe [facility] Start: 09-20-2024 Echocardiography Echocardiogram [facility] Start: 06-20-2024 Glaucoma screening [facility] Start: 12-19-2023 Hemoglobin A1c measurement [facility] Start: 11-07-2023 End: 11-01-2024 Renal function 2000 panel - Serum or Plasma Renal Function Panel Lab Routine Chronic systolic heart failure (CMS/HCC) Expected: 11/07/2023 (Approximate), Expires: 11/01/2024 [facility] Service Area Work Phone: Comment on above: Expected: 11/07/2023 (Approximate), Expires: 11/01/2024 Start: 2023 End: 2023 Admission to same day surgery center 2023 10:00 AM EST - 2023 1:35 PM [place] [address] [place] [id number] [place] [address] Department [place] [address] Resection Laparoscopy Sigmoid Colon [38282 (CPT )] [facility] [place] Comment on above: Resection Laparoscop y Sigmoid Colon [05561 (CPT )] Start: 2023 End: 2023 Laparoscopy colectomy partial w/anastomosis Resection Laparoscopy Sigmoid Colon Diverticulitis 2023 10:00 AM EST Virtual [facility] Start: 2023 Subsequent hospital visit by physician 2023 8:30 AM EST Hospital Encounter [facility] [place] [address] [place] [address] [place] [address] [address] Department of Surgery-Colorectal [place] [id number] [facility] [place] Start: 10-31-2023 End: 10-31-2023 Patient encounter procedure 10/31/2023 11:40 AM EST Office Visit [facility] [address] [address] Ma[address] [place] [id number] Elida Villareal, STEAM STATION SUPERVISOR-GRAIN OILSEED OR PASTURE FARM WORKER [address] [place] [address] [facility] Start: 10-28-2023 End: 10-28-2023 Admission to establishment 10/28/2023 8:45 AM EST Pre-Admission Testing [facility] [address] [place] [id number] [facility] Start: 10-17-2023 End: 10-17-2024 CBC W Auto Differential panel - Blood CBC and Auto Differential Lab Routine Colovaginal fistula Expected: 10/17/2023 (Approximate), Expires: 10/17/2024 [facility] Work Phone: Comment on above: Expected: 10/17/2023 (Approximate), Expires: 10/17/2024 Start: 10-17-2023 End: 10-17-2024 Comprehensive metabolic 2000 panel - Serum or Plasma Comprehensive metabolic panel Lab Routine Colovaginal fistula Expected: 10/17/2023 (Approximate), Expires: 10/17/2024 [facility] Service Area Work Phone: Comment on above: Expected: 10/17/2023 (Approximate), Expires: 10/17/2024 Start: 10-17-2023 End: 10-17-2024 Prealbumin [Mass/volume] in Serum or Plasma Prealbumin Lab Routine Colovaginal fistula Expected: 10/17/2023 (Approximate), Expires: 10/17/2024 [facility] Work Phone: Comment on above: Expected: 10/17/2023 (Approximate), Expires: 10/17/2024 Start: 10-17-2023 End: 10-17-2023 ambulatory [facility] Start: 10-12-2023 End: 10-12-2023 ambulatory [facility] Start: 09-15-2023 [facility] Start: 09-15-2023 Bacteria identified in Blood by Culture Blood Culture [facility] Start: 09-15-2023 Hospital admission, emergency, from emergency room, medical nature [facility] Start: 09-15-2023 End: 09-15-2023 Blood culture [facility] Start: 09-15-[address] [facility] Start: 09-08-2023 Patient referral [facility] Work Phone: Start: 08-31-2023 Bacteria identified in Urine by Culture [facility] Start: 08-31-2023 [facility] Start: 03-23-2023 Patient referral [facility] Work Phone: Start: 02-28-2023 [facility] Start: 02-27-2023 [facility] Start: 02-26-2023 [facility] Start: 02-25-2023 Patient discharge [facility] Start: 02-23-2023 Physiotherapy of chest [facility] Start: 02-21-2023 Care planning and pr oblem solving actions [facility] Start: 02-20-2023 End: 02-21-2023 [facility] Start: 02-20-2023 [facility] Start: 02-19-2023 Referral to wireless sales associate [facility] Start: 02-18-2023 Vital signs measurements [facility] Start: 02-18-2023 Consultation [facility] Start: 02-18-2023 Speech therapy assessment [facility] Start: 02-18-2023 Following clinical p athway protocol [facility] Start: 02-18-2023 Assessment of risk o f venous thromboembolism [facility] Start: 02-18-2023 Assessment using assessment scale [facility] Start: 02-18-2023 Catheterization of vein [facility] Start: 02-18-2023 Consultation [facility] Start: 02-18-2023 Elevation of head of bed [facility] Start: 02-18-2023 Inhalation therapy procedure [facility] Start: 02-18-2023 Insertion of cathete r into peripheral vein [facility] Start: 02-18-2023 Measuring intake and output [facility] Start: 02-18-2023 Mouth care [facility] Start: 02-18-2023 Notification of physician [facility] Start: 02-18-2023 Oxygen therapy [facility] Start: 02-18-2023 Patient referral to dietitian [facility] Start: 02-18-2023 Providing care accor ding to standard [facility] Start: 02-18-2023 Referral to occupati onal therapist [facility] Start: 02-18-2023 Referral to service [facility] Start: 02-18-2023 Removal of urinary catheter [facility] Start: 02-18-2023 Speech therapy assessment [facility] Start: 02-18-2023 Vital signs measurements [facility] Start: 02-18-2023 End: 02-18-2023 [facility] Start: 02-18-2023 Bacterial nucleic ac id assay [facility] Start: 02-18-2023 Streptococcus pneumo niae antigen assay [facility] Start: 02-18-2023 [facility] Start: 02-18-2023 Verification routine [facility] Start: 04-07-2023 Admission procedure [facility] Start: 02-18-2023 CT of chest without contrast Chest without Contrast [facility] Start: 02-17-2023 End: 02-17-2023 Blood culture [facility] Start: 02-17-2023 Airway suction technique [facility] Start: 02-17-2023 [facility] Start: 2009 Hepatitis B Vaccines (1 of 3 - Risk 3-dose series) Hepatitis B Vaccines (1 of 3 - Risk 3-dose series) [facility] Start: 2009 [facility] Start: 1999 Zoster Vaccines (1 of 2) Zoste r Vaccines (1 of 2) [facility] Start: 1999 [facility] Start: 1989 Screening for malign ant neoplasm of breast [facility] Start: 1971 DTaP/Tdap/Td Vaccine s (1 - Tdap) DTaP/Tdap/Td Vaccines (1 - Tdap) [facility] Start: 1971 [facility] Start: 1968 Hepatitis A Vaccines (1 of 2 - Risk 2-dose series) Hepatitis A Vaccines (1 of 2 - Risk 2-dose series) [facility] Start: 1968 Urine screening for protein [facility] Start: 1968 [facility] Start: 1959 Diabetic foot examination [facility] Start: 1955 Pneumococcal Vaccine : 65+ Years (1 - PCV) Pneumococcal Vaccine: 65+ Years (1 - PCV) [facility] Start: 1955 [facility] Start: 05-04-1950 COVID-19 Vaccine (#1) COVID-19 Vacci ne (#1) [facility] Start: [birth year]-04-1950 [facility] Start: 1949 Lipid panel [facility] Start: 1949 Medicare Annual Well ness Visit [facility] Start: 1949 Screening for malign ant neoplasm of colon [facility] Bacteria identified in Blood by Culture Blood Culture [facility] Bacteria identified in Sputum by Respiratory culture [facility] End: 09-23-2023 Cardiac catheterization study [facility] Work Phone: CBC panel - Blood by Automated count [facility] Work Phone: CBC W Auto Different ial panel - Blood [facility] Work Phone: CBC W Auto Different ial panel - Blood [facility] CBC W Auto Different ial panel - Blood [facility] End: 09-28-2023 Cobalamin (Vitamin B12) [Mass/volume] in Serum or Plasma [facility] Work Phone: CT Neck W contrast IV [facility] ECG 12 lead ECG 12 lead ECG Routine Encounter for preadmission testing 11/02/2023 2:17 PM EST [facility] Work Phone: Electrocardiogram, 1 2-lead PRN ACS symptoms [facility] Work Phone: Ferritin [Mass/volum e] in Serum or Plasma [facility] Work Phone: Ferritin [Mass/volum e] in Serum or Plasma [facility] Ferritin [Mass/volum e] in Serum or Plasma [facility] Folate [Mass/volume] in Serum or Plasma [facility] Work Phone: End: 09-28-2023 Folate [Mass/volume] in Serum or Plasma [facility] Work Phone: Glucose [Mass/volume ] in Serum or Plasma [facility] Work Phone: Glucose [Mass/volume ] in Serum or Plasma [facility] Work Phone: End: 09-15-2023 Incentive spirometry Instruct [facility] Work Phone: Iron and Iron bindin g capacity panel - Serum or Plasma [facility] Work Phone: Iron and Iron bindin g capacity panel - Serum or Plasma [facility] Iron and Iron bindin g capacity panel - Serum or Plasma [facility] Lactate dehydrogenas e measurement [facility] Work Phone: Lactate dehydrogenas e measurement [facility] Lactate dehydrogenas e measurement [facility] Legionella pneumophi la Ag [Presence] in Urine [facility] Magnesium [Mass/volu me] in Serum or Plasma [facility] Magnesium [Mass/volu me] in Serum or Plasma [facility] Work Phone: Magnesium [Mass/volu me] in Serum or Plasma [facility] Work Phone: Microscopic observat ion [Identifier] in Unspecified specimen by Gram stain Gram Stain [facility] Patient Education [facility] Work Phone: Patient referral [facility] Work Phone: Renal function 1999 panel - Serum or Plasma [facility] Work Phone: Renal function 1999 panel - Serum or Plasma [facility] Work Phone: Respiratory Culture Respiratory Culture [facility] Reticulocyte count [facility] Work Phone: Reticulocyte count [facility] Vitamin B12 measurement [facility] Work Phone: Vitamin B12 measurement [facility] Immunizations Immunization Date Immunization Notes Care Provider Kemar morales 08-09-2023 influenza virus vaccine, unspecified formulation DR OSEI WOODWARD MD [facility] 08-23-2022 influenza virus vaccine, unspecified formulation DR OSEI WOODWARD MD [facility] 11-28-2021 influenza virus vaccine, unspecified formulation MARIANA RAMOS MD [facility] 11-28-2021 influenza, injectabl e, quadrivalent, preservative free Jonathan Deperro CATARINA [facility] 11-28-2021 influenza, seasonal, injectable [facility] 09-16-2021 influenza, high dose seasonal, preservative-free; Translations: [Fluad Quadrivalent PF ] LEONA RIOS MD [facility] 08-27-2019 influenza, injectabl e, quadrivalent, preservative free; Translations: [Fluarix PF Quadrivalent ] BARBER CARLISLE [employer]AM 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 09-19-2014 influenza virus vaccine, unspecified formulation MARIANA RAMOS MD [facility] Payers Date Payer Category Payer Self-pay [id number] 2022 Private Health Insurance [id number] 2022 Unknown [id number] 2022 Unknown [id number] 2022 Medicare [id number].[facility] 2022 Medicare [id number] 1950 Unknown [id number] 2.16.840.1.986604.3.579.2.6 1949 Unknown [id number] 2.16.840.1.476943.3.579.2.6 1949 Unknown [id number] 2.16.840.1.914356.3.579.2.6 1949 Unknown [id number] 2.16.840.1.896615.3.579.2.6 27 1949 Unknown [id number] 2.16.840.1.416177.3.579.2.6 27 1949 Unknown [id number] 2.16.840.1.751269.3.579.2.6 27 1949 Unknown [id number] 2.16.840.1.780614.3.579.2.6 27 1949 Unknown [id number] 2.16.840.1.260145.3.579.2.1 244 1949 Unknown [id number] 2.16.840.1.994379.3.579.2.1 245 1949 Unknown [id number] 2.16.840.1.475854.3.579.2.1 245 1949 Unknown [id number] 2.16.840.1.237881.3.579.2.1 245 1949 Unknown [id number] 2.16.840.1.952769.3.579.2.1 245 1949 Unknown [id number] 2.16.840.1.600960.3.579.2.1 245 1949 Unknown [id number] 2.16.840.1.573004.3.579.2.1 245 1949 Unknown [id number] 2.16.840.1.879257.3.579.2.1 245 [facility] Health [facility] 18 [id number] Unknown Unknown [id number] Unknown [id number] 2.16.840.1.775680.3.579.2.4 62 Unknown [id number] 2.16.840.1.742949.3.579.2.4 62 Unknown [id number] 2.16.840.1.745024.3.579.2.4 62 Unknown [id number] 2.16.840.1.829849.3.579.2.4 62 Unknown [id number] 2.16.840.1.961918.3.579.2.4 62 Unknown [id number] 2.16.840.1.676322.3.579.2.4 62 Unknown [id number] 2.16.840.1.527972.3.579.2.4 62 Unknown [id number] 2.16.840.1.049738.3.579.2.4 62 Social History Date Type Detail Facility Start: 03-10-2020 End: 09-25-2023 Ex-smoker (finding) [facility] Start: 1950 Sex Assigned At Female A [facility] Start: 11-24-2021 End: 09-14-2023 Tobacco smoking status NHIS Unknown if ever smoked [facility] History of tobacco use Current smoker [facility] Work Phone: History of tobacco use Cigarette Smoker U [facility] Work Phone: Start: 09-25-2023 Tobacco use and exposure Smoke less tobacco non-user [facility] Work Phone: Start: 09-28-2023 End: 10-20-2023 Alcohol intake Ex-drinker (finding) [facility] Work Phone: Start: 09-25-2023 End: 10-31-2023 History of Social function [facility] Work Phone: Start: 09-25-2023 End: 10-31-2023 Alcohol Use Disorder Identification Test - Consumption [AUDIT-C] [facility] Work Phone: How often to you hav e a drink containing alcohol? Never [facility] Work Phone: How many standard dr inks containing alcohol do you have on a typical day? [facility] Work Phone: Start: 09-25-2023 Tobacco Comment Patient quit y ears ago [facility] Work Phone: Start: 1950 [facility] Start: 09-06-2023 End: 10-31-2023 Exposure to SARS-CoV-2 (event) Not sure [facility] NEGATED: Highlighted row - - [...] Status Patient Identi fied Identification band, Verbal [facility] 08-15-2023 Functional Status Maintained [facility] 02-25-2023 Functional status Ambulates;Chair [facility] Work Phone: 07-27-2022 Functional Status Room check performed [facility] 07-26-2022 Functional Status Yes [facility] 07-26-2022 Functional Status Min A 1 [facility] 07-26-2022 Functional Status None [facility] 07-26-2022 Functional Status [facility] 07-26-2022 Functional Status [facility] 07-25-2022 Functional Status Ambulation in Room [facility] 07-25-2022 Functional Status [facility] [...] 07-13-2022 Functional Status Sensory Deficits None A [facility] 07-11-2022 Functional Status Standard Safet y ID band on, Call device within reach, Bed in low position, Wheels locked, Upper/Half-Length side-rails up, Phone within reach, personal items within reach [facility] NEGATED: Highlighted row Functional performance Functional status health issues are not documented Disease [facility] Work Phone: Mental Status Date Assessment Result Facility 08-15-2023 Mental Status Orientation [facility] 4 [facility] 08-09-2023 Cognitive function Level Of Cons ciousness Awake;Alert;Appropriate ;Follows Commands [facility] Work Phone: 02-25-2023 Cognitive function Voice/Name [facility] Work Phone: 07-27-2022 Mental Status Oriented x 4, Follows simple commands [facility] 07-26-[address] [facility] 07-26-[address] [facility] 07-26-[address] [facility] 07-11-2022 Mental Status Orientation [facility] x 4 [facility] NEGATED: Highlighted row Cognitive function [Interpretation] Cognitive status health issues are not documented Disease [facility] Work Phone: Clinical Notes 09-15-2021 to 10-31-2023 Elida Villareal APRN-SILVINO - 10/31/2023 11:40 AM ESTPatient Wendy Sotelo MD - 10/17/2023 11:40 AM Marbella Blood RN - 09/28/2023 11:30 AM EST Note Date & Type Note Facility 10-31-2023 History of Present illness Narrative Subjective Chief Complaint: 72yo patient here for cardiovascular risk stratification prior to noncardiac surgery. HPI Presented as a transfer from [facility] with left lower quadrant abdominal pain [...] Chronic Venous Insufficiency, RLE DVT, OA, GERD, ?SC, LUISA, HFrEF PSHx: Lumpectomy, Cholecystectomy, Appendectomy Presents from [facility] with nursing aid. Denies chest [...] Sitting) Pulse 84 Ht 1.651 m (5' 5) Wt 73 kg (161 lb) SpO2 97% [...] IV Risk w/15% 30-day risk of , SC, or cardiac arrest. Order for BNP. documented in this encounter [facility] Work Phone: 10-31-2023 Instructions FREDY [...] Continue all other medications as ordered. Call [phone] to schedule follow up with Dr. Rowell ([place]). documented in this encounter [facility] Work Phone: 10-17-2023 History of [...] Personal history of irradiation, and Rheumatoid arthritis (CMS/[facility]). Surgical History She has a past surgical [...] 2 times a day. 09/27/23 Nancy Treviño APRN-GRAIN OILSEED OR PASTURE FARM WORKER bisacodyl (Dulcolax) 10 mg suppository Insert 1 [...] once daily. For 7 days ending 09/20/23. ([facility] Jie Probiotic 15 BILLION per [facility] list) 09/27/23 Nancy Treviño APRN-GRAIN OILSEED OR PASTURE FARM WORKER magnesium hydroxide (Milk of Magnesia) 400 mg/5 mL suspension Take 30 mL by mouth once daily as needed for constipation. Historical Provider, metoprolol succinate XL (Toprol-XL) 100 mg 24 hr tablet Take 1 tablet (100 mg) by mouth once daily. Do not crush or chew. Do not start before September 28, 2023. 09/28/23 Nancy Treviño APRN-GRAIN OILSEED OR PASTURE FARM WORKER ondansetron (Zofran) 4 mg tablet Take 1 [...] 2 times a day. 09/27/23 Nancy Treviño APRN-GRAIN OILSEED OR PASTURE FARM WORKER sennosides-docusate sodium (Zarina-Colace) 8.6-50 mg tablet Take [...] Pre Op optimization. COMPARISON: None. ACCESSION NUMBER(S): [id number] ORDERING CLINICIAN: KANG JULIAN TECHNIQUE: Using multi-detector [...] Yair Pham 09/28/2023 11:26 AM Dictation workstation: [id number] Electrocardiogram, 12-lead PRN ACS symptoms Result Date: [...] colovesical colovaginal fistula. COMPARISON: None ACCESSION NUMBER(S): [id number] ORDERING CLINICIAN: KANG JULIAN TECHNIQUE: Multiplanar MRI [...] MD. This study was interpreted at [facility], [place], [place]. MACRO: None Signed by: Clint Woods 09/25/2023 3:47 PM Dictation workstation: [id number] Transthoracic Echo (TTE) Complete Result Date: 09/20/2023 [facility] [address] [place] [address] and TRANSTHORACIC ECHOCARDIOGRAM REPORT Patient Name: POLI RAMIREZ Reading Physician: [id number] Kandi Roberts MD Study Date: 09/20/2023 Ordering Provider: [id number] VARSHA SOTELO MRN/PID: [id number] Fellow: Nurse: Mare Higgins Date of /Age: 12 1950 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 Non Invasive Blood Pressure: 126 /75 mmHg Study Type: TRANSTHORACIC ECHO (TTE) COMPLETE Diagnosis/ICD: Encounter for preprocedural cardiovascular examination-Z01.810 CPT Code: Echo Complete w Full Doppler-[id number] Patient History: Pertinent History: Breast cancer, HTN, [...] LA Area A2C: 21.1 cm2 LA [place] A4C: 5.5 cm LA [place] A2C: 5.6 cm AORTA MEASUREMENTS: Normal Ranges: [...] 1.0 m/s (0.6-0.9m/s) PV Max P.0 mmHg [id number] Kandi Roberts MD Electronically signed on 09/20/2023 at 4:04:20 PM Final US abdomen limited liver Result Date: 09/20/2023 Interpreted By: Steven Chacon and Ebai Jerky STUDY: US ABDOMEN LIMITED LIVER; [facility] US ABDOMINAL/PELVIC DUPLEX COMPLETE; 09/19/2023 6:30 pm INDICATION: 72 y/o F with Signs/Symptoms:Throbocytopenia workup; Signs/Symptoms:per doctor request. COMPARISON: None. ACCESSION NUMBER(S): [id number]; [id number] ORDERING CLINICIAN: KANG JULIAN TECHNIQUE: Multiple images of the right upper quadrant were obtained. Gates scale, color Doppler and spectral Doppler waveform analysis was performed. This examination was interpreted at [facility]. FINDINGS: The liver measures 22.6 cm and [...] as stated. This study was interpreted at [place], [place]. MACRO: None Signed by: Steven Chacon 09/20/2023 5:44 AM Dictation workstation: [id number] Vascular US abdomen/pelvis duplex complete Result Date: 09/20/2023 Interpreted By: Steven Chacon, and Kim Sheikh STUDY: US ABDOMEN LIMITED LIVER; VASC US ABDOMINAL/PELVIC DUPLEX COMPLETE; 09/19/2023 6:30 pm INDICATION: 72 y/o F with Signs/Symptoms:Throbocytopenia workup; Signs/Symptoms:per doctor request. COMPARISON: None. ACCESSION NUMBER(S): [id number]; [id number] ORDERING CLINICIAN: KANG JULIAN TECHNIQUE: Multiple images of the right upper quadrant were obtained. Gates scale, color Doppler and spectral Doppler waveform analysis was performed. This examination was interpreted at [facility]. FINDINGS: The liver measures 22.6 cm and [...] as stated. This study was interpreted at [place], [place]. MACRO: None Signed by: Steven Chacon 09/20/2023 5:44 AM Dictation workstation: [id number] CT head wo IV contrast Result Date: 09/19/2023 Interpreted By: Susy Canales, STUDY: CT HEAD WO IV CONTRAST; 09/19/2023 3:43 pm INDICATION: Signs/Symptoms:R/o subdural hematoma, thrombocytopenia workup (fall several weeks ago). COMPARISON: None. ACCESSION NUMBER(S): [id number] ORDERING CLINICIAN: KANG JULIAN TECHNIQUE: Axial CT [...] Susy Canales 09/19/2023 4:06 PM Dictation workstation: [id number] XR chest 1 view Result Date: 09/19/2023 Interpreted By: Delfin Menezes and [place] Lesley STUDY: XR CHEST 1 VIEW; 09/19/2023 8:46 am INDICATION: Signs/Symptoms:copd on oxygen. COMPARISON: Outside hospital CT chest 03/20/2014 ACCESSION NUMBER(S): [id number] ORDERING CLINICIAN: RIMA APPLE FINDINGS: Single AP [...] stated. This study was interpreted at [facility], [place], [place]. MACRO: None Signed by: Delfin Menezes 09/19/2023 9:36 AM Dictation workstation: [id number] Labs: Lab Results Component Value Date BILIDIR [...] C (97.7 F), height 1.651 m (5' 5), weight 73.3 kg (161 lb 8 oz). [...] this encounter 10/23/2023 documented in this encounter [facility] Work Phone: 09-28-2023 Nurse Note Discharge paper work sent with patient, along with belongings documented in this encounter [facility] Work Phone: 09-28-2023 History of Present illness Narrative Poli Ramirez is a 72 y.o. female on day 13 of admission presenting with Colovaginal fistula. SW briefly met with pt about discharge needs. Pt lives at the [facility] in [place], [place]. Pt can discharge in the next few days. Facility notified through [facility]. SW will follow and assist as needed. SYDNEY Seth. 09/23/2023 LILY spoke to Caroline ([phone]) at the [facility] about pt's return. The facility does [...] Seth. 09/26/2023 LILY spoke to Caroline from [facility] about pt's care. Pt has a cardiac scan today. ADOD is tomorrow or Tuesday. Updated notes sent to pt's facility. SYDNEY Seth. 09/27/2023 Pt set for discharge today. Neg covid test (taken this morning) sent to [facility]. Transport requested for 1530. SW will [...] about discharge needs. Pt lives at the [facility] in [place], [place]. Pt can discharge in the next few days. Facility notified through [facility]. SW will follow and assist as needed. SYDNEY Seth. 09/23/2023 LILY spoke to Caroline ([phone]) at the [facility] about pt's return. The facility does [...] Seth. 09/26/2023 LILY spoke to Caroline from [facility] about pt's care. Pt has a cardiac scan today. ADOD is tomorrow or Tuesday. Updated notes sent to pt's facility. SYDNEY Seth. 09/27/2023 Pt set for discharge today. Neg covid test (taken this morning) sent to [facility]. Transport requested for 1530. SW will [...] be rescheduled for this morning. SYDNEY Seth. [facility] HEART FAILURE PROGRESS NOTE Poli Ramirez/[id number] Admit Date: 09/15/2023 Hospital Length of Stay: [...] F) Resp 18 Ht 1.651 m (5' 5) Wt 74.8 kg (165 lb) SpO2 100% [...] 98 COAG: ABO: No results found for: ABO HEME/ENDO: CARDIAC: No lab exists for component: CK, CKMBP Past Cardiology Tests (Last 3 Years): EK09/19/23 [...] daily as needed for constipation. [DISCONTINUED] HYDROcodone-acetaminophen ([place]) 5-325 mg tablet Take 1 tablet by mouth every 6 hours if needed (moderate to severe pain). [DISCONTINUED] L. acidophilus-L. rhamnosus (Probiotic) 15 billion cell capsule Take 1 capsule by mouth once daily. For 7 days ending 09/20/23. ([facility] Jie Probiotic 15 BILLION per SNF list) [...] about discharge needs. Pt lives at the [facility] in [place], [place]. Pt can discharge in the next few days. Facility notified through [facility]. SW will follow and assist as needed. SYDNEY Seth. 09/23/2023 LILY spoke to Caroline ([phone]) at the [facility] about pt's return. The facility does [...] Seth. 09/26/2023 LILY spoke to Caroline from [facility] about pt's care. Pt has a cardiac scan today. ADOD is tomorrow or Tuesday. Updated notes sent to pt's facility. SYDNEY Seth. 09/27/2023 Pt set for discharge today. Neg covid test (taken this morning) sent to [facility]. Transport requested for 1530. SW will let the facility know when transport is confirmed. SYDNEY Seth. 09/27/2023 Transport set for 1730 with [facility]. Care team and facility notified. SYDNEY Seth. Poli Ramirez is a 72 y.o. female on day 12 of admission presenting with Colovaginal fistula. SW briefly met with pt about discharge needs. Pt lives at the [facility] in [place], [place]. Pt can discharge in the next few days. Facility notified through [facility]. SW will follow and assist as needed. SYDNEY Seth. 09/23/2023 LILY spoke to Caroline ([phone]) at the [facility] about pt's return. The facility does [...] Seth. 09/26/2023 LILY spoke to Caroline from [facility] about pt's care. Pt has a cardiac scan today. ADOD is tomorrow or Tuesday. Updated notes sent to pt's facility. SYDNEY Seth. 09/27/2023 Pt set for discharge today. Neg covid test (taken this morning) sent to [facility]. Transport requested for 1530. SW will [...] 0.45 mg/dL (L)). No results found for: CRP Microbiology Susceptibility data from last 14 days. [...] occurrence. 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 Additionally, would recommend [...] if further questions. ID team A pager [phone]. For new consults, contact pager [phone]. Patient staffed with ID attendant Dr Agarwal who agrees with plan as above Karina Dennison MD MPH I reviewed the resident/fellow's documentation and discussed the patient with the resident/fellow. I agree with the resident/fellow's medical decision making as documented in the note. Nadia Agarwal MD Physical Therapy Physical Therapy Treatment Patient Name: Poli Ramirez Today's Date: 09/26/2023 Time Calculation Start Time: 1514 Stop Time: 152 Time Calculation (min): 11 min Assessment/Plan PT [...] assistance Outcome Measures: [facility] Basic Mobility Turning from your back to [...] RW (Progressing) Start: 09/22/23 Expected End: 10/06/23 [facility] HEART FAILURE PROGRESS NOTE Ploi Ramirez/[id number] Admit Date: 09/15/2023 Hospital Length of Stay: [...] (Temporal) Resp 18 Ht 1.651 m (5' 5) Wt 74.8 kg (165 lb) SpO2 100% [...] 102* COAG: ABO: No results found for: ABO HEME/ENDO: CARDIAC: No lab exists for component: CK, CKMBP Past Cardiology Tests (Last 3 Years): EK09/19/23 [...] than 70 and non-responsive or NPO HYDROcodone-acetaminophen ([place]) 5-325 mg tablet Take 1 tablet by [...] 15-20%. Similar findings on TTE report from [facility]. Currently she appears compensated. Unknown etiology currently. [...] about discharge needs. Pt lives at the [facility] in [place], [place]. Pt can discharge in the next few days. Facility notified through [facility]. SW will follow and assist as needed. SYDNEY Seth. 09/23/2023 LILY spoke to Caroline ([phone]) at the [facility] about pt's return. The facility does not accept weekend discharges so pt will discharge back to facility on 09/26/2023. Pt will also need a negative covid test, taken same day. Care team notified. SW will arrange transport for midday 09/26. SW will follow and assist. SYNDEY Seth. 09/26/2023 LILY messaged pt's residence to let them know that ADOD is 09/27, Tuesday or 09/28, Tuesday. A covid test will be done morning of discharge. SYDNEY Seth. 09/26/2023 LILY spoke to Caroline from [facility] about pt's care. Pt has a cardiac scan today. ADOD is tomorrow or Tuesday. Updated notes sent to pt's facility. SYDNEY Seth. Poli Ramirez is a 72 y.o. female on day 11 of admission presenting with Colovaginal fistula. LILY briefly met with pt about discharge needs. Pt lives at the [facility] in [place], [place]. Pt can discharge in the next few days. Facility notified through [facility]. SW will follow and assist as needed. SYDNEY Seth. 09/23/2023 LILY spoke to Caroline ([phone]) at the [facility] about pt's return. The facility does not accept weekend discharges so pt will discharge back to facility on 09/26/2023. Pt will also need a negative covid test, taken same day. Care team notified. SW will arrange transport for midday 09/26. LILY will follow and assist. Susy CORTEZ, SYDNEY. 09/26/2023 SW messaged pt's residence to let them know that ADOD is 09/27, Tuesday or 09/28, Tuesday. A covid test will be done morning of discharge. Susy CORTEZ, SYDNEY. Images from the original note were not [...] appendectomy who presented as a transfer from [facility] due to left lower quadrant abdominal [...] (L) 09/24/2023 Coagulation: No results found for: INR, APTT Imaging: none Assessment: 72-year-old female with HTN, HLD, COPD 2L NC, DM2, who presented as a transfer from [facility] due to left lower quadrant abdominal [...] PO PPI : Maintain stephens for decompression; BAKER CHEF ONC - likely no fistula to vagina [...] Dr. Subramanian. Rasheed Brandt MD Colorectal Surgery [facility] Pager [phone] Poli Ramirez is a 72 y.o. female on day 10 of admission presenting with Colovaginal fistula. Subjective No new issues. Objective Physical Exam AOX 3 No pedal edema SIS2+ Lungs clear Last Recorded Vitals Blood pressure 108/66, pulse 62, temperature 36.5 C (97.7 F), temperature source Temporal, resp. rate 16, height 1.651 m (5' 5), weight 74.8 kg (165 lb), SpO2 100 [...] about discharge needs. Pt lives at the [facility] in [place], [place]. Pt can discharge in the next few days. Facility notified through [facility]. SW will follow and assist as needed. Susy Blunt [facility], PROTOTYPE DEICER ASSEMBLER. 09/23/2023 SW spoke to Caroline ([phone]) at the [facility] about pt's return. The facility does not accept weekend discharges so pt will discharge back to facility on 09/26/2023. Pt will also need a negative covid test, taken same day. Care team notified. SW will arrange transport for midday 09/26. SW will follow and assist. Susy VALLESDenny, PROTOTYPE DEICER ASSEMBLER. [facility] HEART FAILURE PROGRESS NOTE Poli Ramirez/[id number] Admit Date: 09/15/2023 Hospital Length of Stay: 7 Primary Service: Colorectal surgery INTERVAL EVENTS / PERTINENT ROS: Records reviewed from [facility]. Patient is being planned for surgery for [...] (Temporal) Resp 16 Ht 1.651 m (5' 5) Wt 74.8 kg (165 lb) SpO2 99% [...] 0832 09/21/23 0637 09/20/23 0644 09/19/23 1021 09/18/2343 09/17/23 0551 09/16/2354 09/15/232123 WBC AUTO x10*3/uL [...] 1.1 1.0 ABO: No results found for: ABO HEME/ENDO: Results from last 7 days Lab [...] than 70 and non-responsive or NPO HYDROcodone-acetaminophen (Granville) 5-325 mg tablet Take 1 tablet by [...] spironolactone 12.5 mg daily Will plan for C tomorrow. Please make NPO at midnight. 5. [...] Home Living: Home Living Type of Home: Retirement Care facility Home Adaptive Equipment: Wheelchair-manual, Walker rolling or standard Home Layout: One level Bathroom Shower/Tub: Walk-in shower Bathroom Toilet: Handicapped height Prior Level of Function: Prior Function Per Pt/Caregiver Report Level of Wolcott: Needs assistance with ADLs, Needs assistance with [...] 4/5) Outcome Measures: [facility] Basic Mobility Turning from your back to [...] about discharge needs. Pt lives at the [facility] in [place], [place]. Pt can discharge in the next few days. [facility] SW will follow and assist as needed. [...] intensity level of continued care (Return to half-way with Low intensity therapy services) OT Recommended [...] Dilated cardiomyopathy (CMS/HCC) General: OT Received On: 11/09/23 General Reason for Referral: colovesical/colovaginal fistula and [...] Functional Limits Home Living: Type of Home: Longterm facility Lives With: Alone Home Adaptive Equipment: Wheelchair-manual, Walker rolling or standard Home Layout: One level Home Access: No concerns Bathroom Shower/Tub: Walk-in shower Bathroom Toilet: Handicapped height Bathroom Equipment: Grab bars in shower, Built-in shower seat, Grab bars around toilet Home Living Comments: Living in half-way Prior Function: Level of Wolcott: Needs assistance with ADLs, Needs assistance with [...] Limits Outcome Measures: [facility] Daily Activity Putting on and taking off [...] appendectomy who presented as a transfer from [facility] due to left lower quadrant abdominal [...] pancytopenia who presented as a transfer from [facility] due to left lower quadrant abdominal [...] (09/23) : Monitor UOP and maintain stephens [employer] onc consulted for vaginal bleeding, appreciate recs Ucx: e.fecium, awaiting sensitivities Heme/ID: Daily labs. Continue rocephin/flagyl Ppy: Lovenox 40mg daily, SCDs Special: Okay for shower Dispo: Continue care on RNF. Patient seen by and plans discussed with staff, Dr. Sotelo. Kang Julian MD Colorectal Surgery [facility] Pager [phone] Images from the original note were not [...] appendectomy who presented as a transfer from [facility] due to left lower quadrant abdominal pain suspicious for colovesical/colovaginal fistula and diverticulitis on CT. Subjective [employer] Onc on board for vaginal bleeding, awaiting [...] [P.O.:600; I.V.:166 (2.2 mL/kg); IV Piggyback:150] Out: 5 (25.7 mL/kg) [Urine:1925 (0.7 mL/kg/hr)] Weight: 74.8 [...] pancytopenia who presented as a transfer from [facility] due to left lower quadrant abdominal [...] today : Monitor UOP and maintain stephens [employer] onc consulted for vaginal bleeding, appreciate recs MRI pelvis ordered Ucx Heme/ID: Daily labs. Continue rocephin/flagyl Ppy: Lovenox 40mg daily, SCDs Special: Okay for shower Dispo: Continue care on RNF. Patient seen by and plans discussed with staff, Dr. Sotelo. Jesus Newman, DO Colorectal Surgery [facility] Pager [phone] 09/20/23 4502 Discharge Planning Living Arrangements Other (Comment) (snf) Support Systems Children Type of Residence snf/residential care Patient expects to be discharged to: Return to half-way- [facility] in [place], [place] Does the patient need discharge transport [...] for a colovesical/colovaginal fistuala. She resides at [facility] in [place], [place]. She would like to return there [...] appendectomy who presented as a transfer from [facility] due to left lower quadrant abdominal pain suspicious for colovesical/colovaginal fistula and diverticulitis on CT. Subjective [employer] Onc on board for vaginal bleeding, awaiting [...] pancytopenia who presented as a transfer from [facility] due to left lower quadrant abdominal [...] prealbumin : Monitor UOP and maintain stephens [employer] onc consulted for vaginal bleeding, appreciate recs MRI pelvis ordered Ucx today Heme/ID: Daily labs. Continue rocephin/flagyl Ppy: Lovenox 40mg daily, SCDs Special: Okay for shower Dispo: Continue care on RNF. Patient seen by and plans discussed with staff, Dr. Sotelo. Kang Julian MD Colorectal Surgery [facility] Pager [phone] Images from the original note were not [...] appendectomy who presented as a transfer from [facility] due to left lower quadrant abdominal [...] 8.6 09/18/2023 Coagulation: No results found for: INR, APTT Imaging: Diverticulitis with inflammation of bladder, no discrete fistula or air in the bladder per this MD read of OSH CT 09/15/23 Assessment: This is a 72-year-old female with past medical history significant for hypertension HTN, HLD, COPD (on 2 L nasal cannula at home), type 2 diabetes, pancytopenia who presented as a transfer from [facility] due to left lower quadrant abdominal [...] LFTs, prealbumin : Monitor UOP and maintain setphens Heme/ID: Daily labs. Continue broad-spectrum antibiotics. Coags tomorrow Ppy: Lovenox 40mg daily, SCDs Special: Okay for shower Dispo: Continue care on RNF. Patient seen by and plans discussed with staff, Dr. Sotelo. Kang Julian MD Colorectal Surgery [facility] Pager [phone] Images from the original note were not [...] appendectomy who presented as a transfer from [facility] due to left lower quadrant abdominal [...] mL/kg); IV Piggyback:100] Out: 2074 (27.7 mL/kg) [Urine:5 (0.8 mL/kg/hr)] Weight: 74.8 kg I/O this [...] pancytopenia who presented as a transfer from [facility] due to left lower quadrant abdominal [...] Dr. Sotelo. Fran Brenner MD Colorectal Surgery [facility] Pager [phone] Images from the original note were not [...] appendectomy who presented as a transfer from [facility] due to left lower quadrant abdominal [...] Weight: 74.8 kg I/O this shift: In: 2023.2 [P.O.:300; I.V.:1724.2] Out: 850 [Urine:850] Data Review: [...] pancytopenia who presented as a transfer from [facility] due to left lower quadrant abdominal pain suspicious for colovesical/colovaginal fistula and diverticulitis on CT. Physical exam and imaging (review radiology) is suspicious for fistula. Will work on medical optimization and acquiring outside hospital colonoscopy results for further work-up. Will engage Dr. Apple for optimization, appreciate [facility]. Plan: Neuro: Continue current pain regimen [...] Dr. Sotelo. Michelle Hendrickson MD Colorectal Surgery [facility] Pager [phone] Pharmacy Medication History Review Poli Ramirez is a 72 y.o. female admitted for Colovaginal fistula. MARKETING STRATEGIST Medication List has been updated as appears on Order Summary Report from [facility], [facility]. 09/14/23, 21:31:04 ET. The list below reflects the updated MARKETING STRATEGIST list. Please review each medication in order [...] than 70 and non-responsive or NPO HYDROcodone-acetaminophen (Granville) 5-325 mg tablet Take 1 tablet by mouth every 6 hours if needed (moderate to severe pain). L. acidophilus-L. rhamnosus (Probiotic) 15 billion cell capsule Take 1 capsule by mouth once daily. For 7 days ending 09/20/23. ([facility] Ultimate Jie Probiotic 15 BILLION per SNF [...] [tizanidine] Not Specified Unknown Derrick Arriola, Chelle, [facility] Transitions of Care Pharmacist Medication reconciliation complete Please reach out via [employer] Secure Chat for questions, or if no response call [employer] or [employer]. [facility] Services documented in this encounter [facility] Work Phone: 09-27-2023 Hospital course [...] appendectomy who presented as a transfer from [facility] with left lower quadrant abdominal pain [...] HYDROcodone-acetaminophen 5-325 mg tablet; Commonly known as: Granville; Take 1 tablet by mouth every 6 [...] once daily. For 7 days ending 09/20/23. ([facility] Jie Probiotic 15 BILLION per SNF list) [...] appointments. FREDY Holcomb documented in this encounter [facility] Work Phone: 09-27-2023 Miscellaneous Notes Poli Ramirez is a 72 year old female with a past medical history significant for hypertension on Lasix and lisinopril, hyperlipidemia, COPD (on 2 L nasal cannula at home), type 2 diabetes (not on insulin at home), left breast cancer status post lumpectomy, pancytopenia, open cholecystectomy and appendectomy who presented as a transfer from [facility] with left lower quadrant abdominal pain [...] Lancaster MD MPH Gynecologic Oncology PGY7 Pager: [phone], Team Phone: [phone] Problem: Pain Goal: My pain/discomfort is manageable [...] NPO since 1200, plan for U/S around [id number]. PRN pain medication given per orders. Patient requesting lidocaine gel for vaginal area for pain at stephens site, notified. All needs met, WCTM. Please see media for colonoscopy note from 08/15/23 at [facility]. Patient transitioned to the colorectal surgery service. Acute care surgery will sign off at this time. Thank you for allowing us to take care of Ms. Ramirez and we wish the best for her. Appreciate colorectal surgery care. Og Luis MD PGY-1 General Surgery Acute Care Surgery [phone] Epic Chat Preferred Discussed terms of patient's [...] but that he is currently in a half-way here in [place]. Also states that she has a daughter, Jocy Ramirez, who can make decisions for her. Does not have Jocy's number at this time, but states that she would be okay with surgical team calling her to let her know she is in the hospital at [facility]. Staci Degroot MD PGY-3 General Surgery documented in this encounter [facility] Work Phone: 09-23-2023 Consult note [...] pain which was significant for a reported obstructing mass. Per patient she needed surgery at this time, however, she was not medically optimized, so her surgeon refused to perform the operation. Then seen 09/15 at OSH with LLQ abdominal pain where had a CT scan that showed possible abscess with colonic-vaginal vs colonic vesicular fistula. Transferred to [facility] 09/16 for surgical eval. Underwent MRI [...] than 70 and non-responsive or NPO HYDROcodone-acetaminophen (Granville) 5-325 mg tablet Take 1 tablet by [...] Units 09/23/23 0716 09/22/23 0832 09/21/23 0637 WBC AUTO x10*3/uL 4.9 4.7 5.0 [...] 0.42 mg/dL (L)). No results found for: CRP, SEDRATE HIV 1/2 Antigen/Antibody Screen with Reflex [...] is a 72 y.o. female presenting with [facility] diverticulitis admitted 09/16 from OSH for surgical [...] occurrence. 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 Additionally, would recommend [...] if further questions. ID team A pager [phone]. For new consults, contact pager [phone]. Patient staffed with ID attendant Dr Agarwal [...] s/p lumpectomy, pancytopenia. She originally presented to [facility] with LLQ abdominal pain over the last [address] [facility] a CT scan revealed chronic inflammation [...] pain which was significant for a reported obstructing mass. Per patient she needed surgery at this time, however, she was not medically optimized, so her surgeon refused to perform the operation. She denies previous cardiac history, chest pain, or dyspnea. During pre operative evaluation at [facility], she had a routine TTE which is [...] applicatorful vaginally at bedtime every TUE and URS, for vaginal bleeding, for 1 month. End [...] than 70 and non-responsive or NPO HYDROcodone-acetaminophen (Granville) 5-325 mg tablet 1 tablet, oral, Every [...] was refused from a surgical intervention at [facility] which sounds like it may have been due to her heart disease. 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 Still being worked up by primary team, no surgery planned as of yet #Hypertension #Hyperlipidemia #COPD on 2L chronically Recommendations: Please obtain her records from [facility] for any echos, or cardiac consultations/testing. Start [...] and anemia who is a transferred from [facility] with left lower quadrant abdominal pain and acute vaginal bleeding, with 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 AUB -postmenopausal bleeding, pelvic exam limited but unremarkable, given recent weight loss and poor appetite, symptoms c/f AUB-M - MRI ordered by primary team, will follow up and assess for endometrial biopsy - No active bleeding noted at bedside, recommend pad counts (notify [employer] Onc team if >2pad/hr over 2hrs) Colovesical/Colovaginal [...] vaginal bleeding. Pelvic MRI without evidence of BAKER CHEF cancer. She should have an endometrial biopsy. If she is having surgery this hospitalization will perform while hospitalized, otherwise would do as an outpatient. We will be available if needed for surgery. Eric Osorio MD Subjective 72 y.o with h/o left breast cancer, HTN, COPD (on 2L NC at home), T2DM, chronic thrombocytopenia and anemia who is a transferred from [facility] for left lower quadrant abdominal pain [...] than 70 and non-responsive or NPO HYDROcodone-acetaminophen (Granville) 5-325 mg tablet Take 1 tablet by [...] 154 (H) 09/19/2023 No results found for: LACTATE documented in this encounter [facility] Work Phone: 09-22-2023 History and [...] s/p lumpectomy, pancytopenia. She originally presented to [facility] with LLQ abdominal pain over the last [address] [facility] a CT scan revealed chronic inflammation [...] pain which was significant for a reported obstructing mass. Per patient she needed surgery at this time, however, she was not medically optimized, so her surgeon refused to perform the operation. She denies previous cardiac history, chest pain, or dyspnea. During pre operative evaluation at [facility], she had a routine TTE which is [...] than 70 and non-responsive or NPO HYDROcodone-acetaminophen (Granville) 5-325 mg tablet 1 tablet, oral, Every [...] was refused from a surgical intervention at [facility] which sounds like it may have been due to her heart disease. 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 Still being worked up by primary team, no surgery planned as of yet #Hypertension #Hyperlipidemia #COPD on 2L chronically Recommendations: Please obtain her records from [facility] for any echos, or cardiac consultations/testing. Start [...] to follow. Discussed with HF attending, Dr. Anotni Barajas, Jeovanny Jones DO PGY-4 Advanced Heart Failure Fellow Images from the original note were not included. Colorectal Surgery Consult H&P Poli Ramirez [phone] Consults Reason for admission: We were consulted [...] appendectomy who presents as a transfer from [facility] due to left lower quadrant abdominal pain suspicious for colovesical/colovaginal fistula and diverticulitis on CT. Patient reports left lower quadrant abdominal pain for the last 4 months. Pain worsened 2 nights ago at which time she presented to [facility]. Patient also reports 4 weeks ago she began having vaginal bloody discharge and dark brown/red urine with dysuria. Patient denies any difficulty urinating however she endorses the vaginal discharge/urine has a foul odor to it. Patient had a colonoscopy several weeks ago at [facility] for work-up of the abdominal pain which was significant for a reported obstructing mass however as per the patient she is unaware if a biopsy was taken. As per patient she needed surgery at this time, however, she was not medically optimized, so her surgeon refused to perform the operation. Patient previously had a colonoscopy within the last 10 years that was reportedly normal. At [facility] a CT scan revealed chronic inflammation [...] pancytopenia who presents as a transfer from [facility] due to left lower quadrant abdominal [...] Dr. Deepak Brenner MD, MD Colorectal Surgery [facility] Service Pager [phone] [facility] ACUTE CARE SURGERY - HISTORY AND PHYSICAL / CONSULT Patient Name: Poli Ramirez Admit Date: [id number] : 1950 AGE: 72 y.o. GENDER: female TODAY'S ASSESSMENT AND PLAN OF CARE: NPO w/ IVF IV ceftriaxone and metronidazole Pain and nausea control as needed Interdisciplinary care with Colorectal Surgery for further workup including imaging and/or colonoscopy Gina Rush MD [facility] [id number] CHIEF COMPLAINT/REASON FOR CONSULT: Poli Ramirez is a 72 yo F, medical history significant for HTN, HLD, COPD (on 2L NC at home), T2DM, left breast cancer (ER positive, T1c, N0, cM0) s/p left lumpectomy, pancytopenia, and open cholecystectomy, appendectomy, who was transferred from [facility] for an intraabdominal abscess, diverticulitis, and [...] she was referred to a surgeon at [facility] but says the doctor refused surgery because my heart couldn't handle it. She reports she had a colonoscopy about [...] chemoprophylaxis, full code. documented in this encounter [facility] Work Phone: 09-15-2023 Discharge summary Note Date/Time September 15, 2023 1:09am [facility] Medical Records Department [address] [place] [address] Emergency Department Summary 09/15/23 MR#: [id number] Acct: [id number] Name: POLI RAMIREZ Rep #:[id number] : 1950 72 From: Calvin Hester DO PCP: Dr. Jonathan Dillard Sr., DO Status:R EG ER Location: ED ADDENDUM by Dr. Jerad Thomas MD on 09/15/23 at 1326 Patient was turned over to me pending transfer. Physician at [facility] accepted. But there is no [...] Patient is a 71-year-old female from the half-way with past medical history of COPD on oxygen 06/06 as well as congestive heart failure hypertension and diabetes. She has been evaluated over the past 4 to 5 months for recurrent abdominal pain and found to have chronic colitis. There is concern this could be related to a potential malignancy. The patient is on Granville secondary to this. Reportedly she recently was diagnosed with UTI as well and has been placed on antibiotics. Patient is complaining of persistent abdominal pain as well as vaginal bleeding [facility] Medical History Acute on chronic respiratory failure [...] bisacodyl 10 mg rectal suppository 10 mg OR DAILY PRN constipation 11/11/22 [History Last Taken [...] surgery Hx of cholecystectomy Social History housing: half-way Smoking Status: Former smoker alcohol intake: never [...] reported the pain has been controlled with Granville and now is no longer controlling her [...] case was discussed with Dr. Landon/surgery from [facility]. She agrees to accept the patient [...] (Auto) 70.5 H Lymph % (Auto) 19.5 Anderson % (Auto) 7.8 Eos % (Auto) 0.8 [...] Clarity Clear Urine pH 6.0 Ur Specific [place] 1.010 Urine Protein 30 H Urine Glucose [...] EDT , Management Discussion w/another healthcare provider: [employer] Waste Chopper and Other Discharge Plan Triage Chief Complaint: Abd Pain ED Provider: Calvin Hester Dx/Rx/DC Orders Clinical Impression: Type 2 diabetes mellitus, Abscess of intestine, COPD (chronic obstructive pulmonary disease), Chronic anemia Prescriptions: No Action bisacodyl 10 mg suppository 10 mg OR DAILY PRN (Reason: constipation) cranberry 400 mg [...] Disposition Disposition: Acute Care Hospital Discharge Location: [facility] What to do if you have Problems For any increased pain, shortness of breath, bleeding, nausea or vomiting, chestpain, or any unexpected problems, contact your Primary Care Provider. Call [facility] ([phone]) or report to the closest Emergency Room. Call 911 if necessary. 09/15/23 0535 <Electronically signed by Calvin Hester DO> Cosigner Signature (if applicable): CC: Dr. Jonathan Dillard Sr., DO ~ Signed [facility] Work Phone: 1(473) 951-826910-06-2023 Evaluation + Plan note Future Scheduled Tests [...] Sign Date: 08/17/2023 3:50:07 PM Ordering Provider: [facility]10-02-2023 Hospital Discharge instructions Patient Education 08/15/2023 12:07:59 [...] including vitamins, herbs, eye drops, creams, and [id number] medicines. Any blood disorders you have. Any [...] provider tells you to take them. ?Taking eyhq-nxj-tamzkhx medicines, vitamins, herbs, and supplements. Follow instructions [...] 10/28/2001 Document Revised: 03/06/2019 Document Reviewed: 03/06/2019 [employer] Patient Education 2020 [employer] 08/15/2023 12:07:59 Barium Enema Barium Enema A [...] including vitamins, herbs, eye drops, creams, and gczt-kss-xzluqgd medicines. Any blood disorders you have. Any [...] provider tells you to take them. ?Taking mzds-znd-jrodjas medicines, vitamins, herbs, and supplements. Follow instructions [...] 10/28/2001 Document Revised: 03/06/2019 Document Reviewed: 03/06/2019 [employer] Patient Education 2020 [employer]. 08/15/2023 12:02:48 Monitored Anesthesia Care, Care After [...] before eating solid foods. General instructions Take kkzt-jcu-ykxrlhc and prescription medicines only as told by [...] 02/20/2017 Document Revised: 01/29/2019 Document Reviewed: 02/20/2017 [employer] Patient Education 2020 [employer]. 08/15/2023 12:02:43 Colonoscopy, Adult, Care After Colonoscopy, [...] a slower pace than normal. ?Eat soft, ourg-rq-hjpxoq foods. Take wamz-xpv-zgkarfv or prescription medicines only as told by [...] 06/14/2005 Document Revised: 08/23/2018 Document Reviewed: 01/11/2017 [employer] Patient Education 2020 [employer]. Follow Up Care 08/09/2023 08:04:53 With:MARK JEREZ Address: [address] [place] [phone] Business (1) When: Unknown Comments:KEEP YOUR APPOINTMENT FOR YOUR MRI ON TUESDAY AT [address] JEREZ WOULD LIKE POLI TO HAVE A BARIUM EMEMA ON TUESDAY. THE ORDER IS IN THE FOLDER. PLEASE CALL DR. JEREZ'S OFFICE TO GET THE ORDERS FOR A PREP. PLEASE CALL THE NUMBER ON THE ORDER TO SCHEDULE THE BARIUM ENEMA [phone]. [facility] 10-02-2023 Evaluation + Plan noteExtracted from: Title:Clinical Document Author:MARK JEREZ Date:08/15/23 [facility] ADMISSION HISTORY AN D PHYSICIAL CHIEF COMPLAINT: HISTORY OF PRESENT ILLNESS: REVIEW OF SYSTEMS: ACTIVE PROBLEMS: (32) Anemia (347174046) Arthritis (3841306) Benign colon polyp (4112968514) Breast cancer (770874258) Cervical spine fracture (975191189) Chest pain (60483987) Chronic anemia (700769461) Chronic back pain (809306249) COPD (20949046) Dependence on wheelchair (952763606) Diabetes mellitus type 2 (212275465) Diabetic neuropathy (792799878) Diarrhea (031956513) Dysphagia (63747970) Edema of both lower extremities (599000875) Encounter for surgical aftercare following surgery of nervous system (247280857) General weakness (94825358) GERD (gastroesophageal reflux disease) ([id number]) Glasses (2350692153) Goiter (4791108) Hard of hearing (793814651) Heart attack (27568285) History of radiation exposure (791887401) Hx of thrombocytopenia (911602397) Hyperlipidemia (82438172) Hypertension, essential (64744193) Incontinence of urine (7347678722) Osteoarthritis (6704714562) Oxygen dependent (5593174871) Pancreatic cyst (13986271) Rheumatic fever (93095729) Urinary incontinence (1075842812) MEDICATIONS: Active Inpt Meds: None Active PRN Meds: None One Time Meds: None Active IV Meds: Lactated Ringers Infusion 1,000 mL (LR 1,000 mL) Start: 08/15/23 10:41:00 EDT, Rate: 50 mL/hr, 08/15/23 10:41:00 EDT ALLERGIES: (2) Flexeril Zanaflex FAMILY HISTORY: SOCIAL HISTORY: PHYSICAL EXAM: VITALS: YiuahzEnkcLHTxzdyZXBdJ6TJD9WjkkUq(kg) 08/15 10:1936.7--556751LC17/02 95.0 08/15 95.0 24 Hr Tmax: 36.7 [...] LABS: 36hr Labs 08/15 1041 Blood Glucose, Xvdwnccac244L Blood Glucose, Ahzjxxrkk099N DIAGNOSTICS: IMPRESSION: PLAN: History and Physical Update I have examined the patient; reviewed the H&P and there are no changes to the H&P unless noted below. Future Appointments Appointment Date:08/17/2023 10:30:00 AM Scheduled Provider: Location:[facility] Appointment Type:XR Barium Enema Complete Appointment Date:08/19/2023 02:30:00 PM Scheduled Provider: Location:[facility] Appointment Type:MRI Pancreas Future Scheduled Tests Radiology* XR Barium Enema Complete 08/17/23 * MRI Pancreas 08/19/23 [facility] 10-02-2023 Summary of episode note Discharge Instructions Thank you for allowing [facility] to assist you with your healthcare needs. The following is importantdischarge information regarding your hospital visit. Your Care Team BARBER CARLISLE What to do next Scheduled Follow-Up Appointments Appointment Type When Where Contact InformationMRI Pancreas 08/19/2023 02:30 PM [facility] [phone] Follow Up Appointments Follow Up with MARK JEREZ When Why: KEEP YOUR APPOINTMENT FOR YOUR MRI ON TUESDAY AT [address] JEREZ WOULD LIKE POLI TO HAVE A BARIUM EMEMA ON TUESDAY. THE ORDER IS IN THE FOLDER. PLEASE CALL DR. JEREZ'S OFFICE TO GET THE ORDERS FOR A PREP. PLEASE CALL THE NUMBER ON THE ORDER TO SCHEDULE THE BARIUM ENEMA [phone]. Where: [address] [facility] [[email or web address]] [address] [place] [address]- [phone] Business (1) The Following Activity and Diet [...] including vitamins, herbs, eye drops, creams, and gkzz-gyz-zgbviqr medicines. Any blood disorders you have. Any [...] tells you to take them. ? Taking zjzi-ltr-kcntifr medicines, vitamins, herbs, and supplements. Follow instructions [...] 10/28/2001 Document Revised: 03/06/2019 Document Reviewed: 03/06/2019 [employer] Patient Education 2020 [employer] Barium Enema A barium enema is [...] including vitamins, herbs, eye drops, creams, and padn-emm-ngohgtk medicines. Any blood disorders you have. Any [...] tells you to take them. ? Taking bchu-zxj-raskvib medicines, vitamins, herbs, and supplements. Follow instructions [...] 10/28/2001 Document Revised: 03/06/2019 Document Reviewed: 03/06/2019 [employer] Patient Education 2020 [employer]. Monitored Anesthesia Care, Care After These instructions [...] before eating solid foods. General instructions Take lndh-brx-jlflxmd and prescription medicines only as told by [...] 02/20/2017 Document Revised: 01/29/2019 Document Reviewed: 02/20/2017 [employer] Patient Education 2020 [employer]. Colonoscopy, Adult, Care After This sheet gives [...] slower pace than normal. ? Eat soft, zdex-xr-xipspj foods. Take sxpp-axz-kfswpot or prescription medicines only as told by [...] 06/14/2005 Document Revised: 08/23/2018 Document Reviewed: 01/11/2017 [employer] Patient Education 2020 [employer] Additional Information VACCINATE! IT SAVES LIVES! Members of the community who have not yet received the COVID-19 vaccine and would like to receive it can visit one of [facility] vaccine clinics. There are many vaccine clinic locations within the [facility]. For locations and available times, please visit [email or web address] It is important to note that some COVID mobile vaccine clinics are held outdoors and may be canceled in rainy or stormy conditions. To learn more about pediatric vaccinations (ages 5-11), we invite you to visit the [facility] webpage. [email or web address]/pages/[email or web address]-Inyri-Ixwdjulhmkw-Cstndwchon-[email or web address]-Fns stions.htmlTo learn more about the COVID-19 vaccine, we invite you to visit the CDC website for a list of frequently asked questions.https://www.cdc.gov/coronavirus/2019-ncov/vaccines/faq.html [facility] Patient Portal Access Instructions: Stay connected with your healthcare team and access your personal medical information anytime with the [facility] Patient Portal. Please follow the directions below to create your [employer] account: 1.Access the email account you provided upon registration to the hospital/physician office.2.Look for an invitation email from [facility].3.Open the email and access the invitation link: AcceptInvitation to [employer].4.Fill in the required quijano to create your account. To access your account, visit [email or web address]. Click the blue button labeled Access Patient Portal and then log in with the username and password that you created in the steps above. You will be able to view your test results, lab results, a summary of your visits, upcoming appointments and more. There is also a convenient messaging option where you can send secure messages to your p HabitRPGvider. In addition, you will have the ability to download any documents or summaries to your computer and/or send the information securely to a physician. Remember that your healthcare information is confidential, so carefully consider who you will allowto register on the [facility] Patient Portal for access to your information. You can also access the [facility] Patient Portal on the [facility] [employer] marcy. Simply click on Patient Portal and then log into your account. If you would like to receive a full copy of your medical records, please contact the [facility] Medical Records Department by calling [phone], Tuesday through Tuesday between 8 a.m. and [...] Call your local pharmacy or go to http://bit.Vocation/2W7Jb5i to find one close to you.3.Make use of household items: Use cat litter or old coffee grounds to dispose medications if other options arenot available. Mix your drugs with these household products, seal them in an airtight container andthrow it into the garbage. Call [facility]: [phone] to be sure your drugs can be [...] that I should contact my d octor. 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 Dr. Jerez ordered a Barium Enema. Stock Holder X-Rays taken. Radiologist stated tomuch air for a Barium Enema today. Dr. Jerez notified. Orders received. Digitally Signed by Amy Watters RN on 08/15/2023 11:54 AM [facility]10-02-2023 Note ORIGINAL HISTORY: Failed colonoscopy, stricture COMPARISON: [...] Date: 08/15/2023 12:08:09 PM [facility]esthesiology Consult note Patient: POLI RAMIREZ Age: 72 years Sex: Female : 1950 Associated Diagnoses: None Author: DELFIN RAM APRN-REHAB DIRECTOR Assessment Postanesthesia assessment Vitals: Vital signs from [...] by DELFIN RAM on 08/15/2023 11:22 AM [facility]10-02-2023 Anesthesiology Consult note Patient: POLI RAMIREZ Age: [...] list: Medical Chronic anemia / SNOMED CT 127703531 / Confirmed Chronic back pain / SNOMED CT 800051569 / Confirmed COPD / SNOMED CT 54098942 / Confirmed Hypertension, essential / SNOMED CT 87911648 / Confirmed Cervical spine fracture / SNOMED CT 942574744 / Confirmed GERD (gastroesophageal reflux disease) / SNOMED CT [id number]-TY6X-AF328FW28ZP7 / Confirmed Goiter / SNOMED CT 8700526 / Confirmed Hyperlipidemia / SNOMED CT 05209052 / Confirmed Encounter for surgical aftercare following surgery of nervous system / SNOMED CT 575270266 / Confirmed Incontinence of urine / SNOMED CT 6360510317 / Confirmed, Active Problems (32) Anemia Arthritis [...] incontinence Histories Past Medical History: Active COPD (71106669) Chronic back pain (237652933) Resolved H/O hypercholesterolemia (9965817747): Resolved. Hypernatremia (3381816381): Resolved. Family History: Heart disease Father Brother Arthritis Daughter Stroke Mother Cancer Sister HTN - Hypertension Mother GERD (gastroesophageal reflux disease) Daughter Diverticulitis Daughter Procedure history: Cervical discectomy (448194987) on 07/13/2022 at 71 Years. Comments: 08/09/2022 11:44 Viji Diaz CMA ACDF None (886997944). Appendectomy (105389602). Comments: 08/11/2017 12:13 SHAMA BOLTON left water taken off Tubal ligation (709560203). Cholecystectomy (96104626). Arthroscopic knee operation (9047033824). Comments: 12/24/2019 13:16 SHAMA Gabriel right Lumpectomy of breast (3818039215). Comments: 12/24/2019 13:16 SHAMA Gabriel left Phacoemulsification of cataract with intraocular lens implantation (4906298542). Comments: 12/24/2019 13:16 SHAMA Gabriel both eyes Colonoscopy (112931916). Esophagogastroduodenoscopy (301120495). Cardiac catheter (2725977666). Comments: 12/24/2019 13:17 SHAMA Gabriel years ago [...] Signs(last 24 hrs) Last Charted Heart Rate Qnsdrqsjy73 bpm (AUG 15 11:15) Resp Rate H 21br/min (AUG 15 10:19) LAO235 mmHg (AUG 15 11:11) HMJ199 mmHg (AUG 15 11:11) BMI34.89 (AUG 15 10:29) Measurements from flowsheet : Measurements 08/15/2023 10:29 EDT Height 165 cm Admission Weight 95 kg [place] Body Weight 56.91 kg BSA Admission 2.02 Body Mass Index 34.89 kg/m2 08/15/2023 10:19 EDT Height 165 cm Admission Weight 95 kg [place] Body Weight 56.91 kg Admission Body Mass [...] mg mg 08/15/2023 11:12 EDT SN - SC - Medication glucagon recombinant 1 mg SN - SC - Route of Administration Intravenous SN - SC - By (Single) SN - SC - By (Single) SN - SC - Time Administered 08/15/2023 11:11 08/15/2023 11:11 [...] propofol 50 mg mg 08/15/2023 11:01 EDT [place] History and Physical 08/15/2023 11:00 EDT SN [...] Surgeon SN - CAt - Role Performed Engineering Group Leader 1 SN - CAt - Role Performed Production Line Manager SN - CAt - Role Performed REHAB DIRECTOR 08/15/2023 11:00 EDT Heart Rate Monitored 96 [...] May Share PHI Armani Ramirez no phone Designated Person #1 Relationship Spouse Designated Person #2 We May Share PHI Jocy [phone] Designated Person #2 Relationship Daughter Height 165 cm Admission Weight 95 kg [place] Body Weight 56.91 kg BSA Admission 2.02 [...] Method Explanation, Printed materials Preferred Spoken Language Luxembourger Preferred Written Language Luxembourger Information Given by Patient Patient's Current Physicians Patient's Current Physicians Discharge To, Anticipated Home with family care Prev Test Positive/Diagnosis w/COVID-19 No Current Quarantine/Isolated any Illness No Any Contact with Sick Animals/Birds No Traveled Anywhere in Last 30 Days No N/A Personal Devices, Patient Valuables None Admission Note-Nursing Procedure/Therapy Intake 08/15/2023 10:19 EDT Height 165 cm Admission Weight 95 kg [place] Body Weight 56.91 kg Admission Body Mass [...] Quadrants Present Skin Temperature Warm Skin Description [place], Dry Skin Integrity Intact Mucous Membrane Color [place] Characteristics of Speech Clear Level of Consciousness [...] Allergies Yes Anesthesia Extension Set Applied Yes Training Professional On Yes Colon Prep Results Excellent Consent [...] Void 08/15/2023 9:00 . Assessment and Plan [employer] Anesthesiologists (ASA) physical status classification: Class IV. Anesthetic Preoperative Plan Anesthetic technique: MAC. Informed consent: signed by patient. Digitally Signed by DELFIN RAM on 08/15/2023 11:21 AM [facility]10-02-2023 Anesthesiology Consult note Patient: POLI RAMIREZ Age: [...] by DELFIN RAM on 08/15/2023 11:19 AM [facility]10-02-2023 Note [facility] ADMISSION HISTORY AND PHYSICIAL CHIEF COMPLAINT: HISTORY OF PRESENT ILLNESS: REVIEW OF SYSTEMS: ACTIVE PROBLEMS: (32) Anemia (510288161) Arthritis (4277848) Benign colon polyp (0113938583) Breast cancer (506684375) Cervical spine fracture (728308463) Chest pain (20851036) Chronic anemia (082889577) Chronic back pain (750639233) COPD (98471908) Dependence on wheelchair (627487206) Diabetes mellitus type 2 (139582771) Diabetic neuropathy (972643443) Diarrhea (725197063) Dysphagia (85185923) Edema of both lower extremities (855558243) Encounter for surgical aftercare following surgery of nervous system (349534792) General weakness (11975978) GERD (gastroesophageal reflux disease) ([id number]) Glasses (6102767357) Goiter (2911271) Hard of hearing (132062741) Heart attack (04861297) History of radiation exposure (788715409) Hx of thrombocytopenia (480205284) Hyperlipidemia (50470820) Hypertension, essential (49917727) Incontinence of urine (3558837037) Osteoarthritis (7924096005) Oxygen dependent (4198814634) Pancreatic cyst (77080280) Rheumatic fever (62191982) Urinary incontinence (5906646296) MEDICATIONS: Active Inpt Meds: None Active PRN Meds: None One Time Meds: None Active IV Meds: Lactated Ringers Infusion 1,000 mL (LR 1,000 mL) Start: 08/15/23 10:41:00 EDT, Rate: 50 mL/hr, 08/15/23 10:41:00 EDT ALLERGIES: (2) Flexeril Zanaflex FAMILY HISTORY: SOCIAL HISTORY: PHYSICAL EXAM: VITALS: WbrdezEdqtARCktowKOYlG2TEV4IcxcOf(kg) 08/15 10:1936.7--081705UY57/02 95.0 08/15 95.0 24 Hr Tmax: 36.7 at 08/15 10: 36 Hr Tmax: 36.7 at 08/15 10:19 Vital Signs are the last 5 in the past 48 hours. Weights display the last 5 within 7 days. Initial Wt: 08/15 95.0 kg 209 lb Current Wt: 08/15 95.0 kg 209 lb GENERAL: HEENT: CARDIOVASCULAR: RESPIRATORY: ABDOMEN: EXREMETIES: NEUROLOGICAL: PSYCHIATRIC: LABS: 36hr Labs 08/15 1041 Blood Glucose, Luyfpgzmo417M Blood Glucose, Vlvlnclid776U DIAGNOSTICS: IMPRESSION: PLAN: History and Physical Update I have examined the patient; reviewed the H&P and there are no changes to the H&P unless noted below. Digitally Signed by MARK JEREZ MD on 08/15/2023 11:05 AM [facility]08-31-2023 Discharge summary Author Shahnaz Way [facility] July 14, 2023 7:47pm Note Date/Time July 14, 2023 3: 43pm [facility] Medical Records Department [address] [place] [address] Emergency Department Summary 07/14/23 MR#: [id number] Acct: [id number] Name: POLI RAMIREZ Rep #:[id number] : 1950 72 From: Shahnaz Georges PCP: [...] over the last week and is now intolerable. She states the pain is been constant [...] wait that long. States that she has a little blue pill that helps somewith her pain, review of her medical records from her nursing facility shows that this is likely Bentyl. Medical records also show that patient is DNR CCA. She is a resident of [facility]. She notes that she is mostly wheelchair-bound but can walk short distances. Had a neck fracture earlier thisyear. [facility] Medical History Acute on chronic respiratory failure [...] bisacodyl 10 mg rectal suppository 10 mg OR DAILY PRN 11/11/22 [History Last Taken Unknown] [...] surgery Hx of cholecystectomy Social History housing: half-way Smoking Status: Former smoker alcohol intake: never [...] Patient isalso prescribed a short course of [place] for pain control. Is given first dose [...] 76.9 H Lymph % (Auto) 14.7 L Anderson % (Auto) 6.5 Eos % (Auto) 1.3 [...] Clarity Clear Urine pH 6.0 Ur Specific [place] 1.020 Urine Protein 15 H Urine Glucose [...] Action bisacodyl 10 mg suppository 10 mg OR DAILY PRN cranberry 400 mg capsule 400 [...] your Primary Care Provider. Call [facility] ([phone]) or report to the closest Emergency Room. Call 911 if necessary. 07/14/231946 <Electronically signed by Shahnaz Way DO> Cosigner Signature (if applicable): CC: Jonathan Dillard MD ~ Signed [facility] Work Phone: 1(472) 787-261506-06-[address] Vela [facility] April 19, 2023 7:53pm Note Date/Time April 19, 2023 6:13p m [facility] Medical Records Department [address] [place] [address] Emergency Department Summary 04/19/23 MR#: [id number] Acct: [id number] Name: POLI RAMIREZ Rep #:[id number] : 1950 72 From: Alejandra Vela DO PCP: Gilma STUBBS, Jonathan Status:REG ER Location: ED HPI HPI - GI History of Present Illness Chief Complaint: Abd Pain Narrative Narrative: 72-year-old female presenting with left lower quadrant abdominal pain. She states this has been present off and on for weeks. She states that the half-way she is at she gets Tylenol for this and it goes away but over the last few days the Tylenol is not helping. She has nausea without vomiting. She denies constipation. She states she has loose stools its not quite diarrhea. No blackor bloody stools. She states that at times there is right-sided abdominal pain. She has not had a fever at home. [facility] Medical History Acute on chronic respiratory failure [...] bisacodyl 10 mg rectal suppository 10 mg OR DAILY PRN 11/11/22 [History Last Taken Unknown] [...] surgery Hx of cholecystectomy Social History housing: half-way Smoking Status: Former smoker alcohol intake: never [...] discussed with the on-call physician for the half-way. They wish to have the patient started [...] 81.7 H Lymph % (Auto) 11.2 L Anderson % (Auto) 5.5 Eos % (Auto) 0.9 [...] Clarity Clear Urine pH 6.5 Ur Specific [place]verse 1.010 Urine Protein Negative Urine Glucose (UA) [...] Paper guidelines (Bailey, et al. JACR 2017; 14(8):3983-3554) recommend a low dose, non-contrast adrenal CT or chemical-shift adrenal MRI follow-up study. Other findings as above. Electronically Signed: Edward Gamboa MD at 18:58 EDT Reading Location ID and State: [facility] / [place] , Service support , Discharge Plan Triage [...] Action bisacodyl 10 mg suppository 10 mg OR DAILY PRN cranberry 400 mg capsule 400 [...] your Primary Care Provider. Call [facility] ([phone]) or report to the closest Emergency Room. Call 911 if necessary. 04/19/231952 <Electronically signed by Alejandra Vela DO> Cosigner Signature (if applicable): CC: Jonathan Dillard MD ~ Signed [facility] Work Phone: 1(664) 786-854504-14-[address] Jaime [facility] February 25, 2023 11:39am Note Date/Time February 25, 2023 11: 37am [facility] Medical Records Department [address] [place] [address] Transfer to [facility] MR#: [id number] Acct: [id number] Name: POLI RAMIREZ Rep #:[id number] : 1950 72 From: Pratima Jaime MD [...] displaced fracture of cervical vertebra resulting in half-way placement, VTE presented to [facility] 02/18/23 due to unresponsiveness. She was found unresponsive by the half-way where she lived. She was found to [...] to schedule your hospital follow-up appointment (ph [phone]) -Weigh yourself every day. A sudden weight [...] risk of hypoglycemia -Would recommend lab work ([facility]) to check your kidney function in 2 [...] Continued bisacodyl 10 mg suppository 10 mg OR DAILY PRN cranberry 400 mg capsule 400 [...] to schedule your hospital follow-up appointment ( [phone])) Barber Carlisle NP, SCIENTIFIC RESEARCH ASSOCIATE-C [Primary Care Provider] - Within 1 Week Disposition Disposition (needs filled in before D/C Order can be placed): Longterm Facility 02/25/23 1137 <Electronically signed by Pratima Jaime MD> Cosigner Signature (if applicable): CC: SCIENTIFIC RESEARCH ASSOCIATE-C Viji Richey; SCIENTIFIC RESEARCH ASSOCIATE-C Barber Carlisle; Dr. Serge Banks MD; Dr. Hernando Padron MD; Dr. Ajit Mcgill DO; Dr. Thomas Ahumada MD; Dr. Rebecca Resendiz DO; Dr. Martín Monique MD; Dr. Krzysztof Pennington MD ~ [facility] Work Phone: 1(242) 611-237704-13-[address] Jaime [facility] February 24, 2023 3:21pm Note Date/Time February 24, 2023 3:[address] [facility] Medical Records Department [facility] [place] [address] Progress Note - Hospitalist 02/24/23 1519 MR#: [id number] Acct: [id number] Name: POLI RAMIREZ Rep #:[id number] : 1950 72 From: Pratima Jaime MD PCP: Barber Lorson, SCIENTIFIC RESEARCH ASSOCIATE-C Status:ADM I N Location: [place] [address] Reason for Visit Reason for Visit: Diagnoses [...] 80.1 H, Lymph % (Auto) 12.6 L, Anderson % (Auto) 5.1, Eos % (Auto) 1.5, [...] documentation, 30minutes Charges/Coding Visit Charges Inpatient E&M: 81163 Subs Hosp L2 02/24/23 1521 <Electronically signed by Pratima Jaime MD> Cosigner Signature (if applicable): CC: ~ Signed [facility] Work Phone: 1(655) 220-644704-12-[address] Jaime [facility] February 23, 2023 2:03pm Note Date/Time February 23, 2023 10: 52am [facility] Medical Records Department [address] [place] [address] Progress Note - Hospitalist 02/23/23 1051 MR#: [id number] Acct: [id number] Name: POLI RAMIREZ Rep #:[id number] : 1950 72 From: Pratima Jaime MD PCP: ARLENE Edmonds Status:ADM I N Location: [place] [address] Reason for Visit Reason for Visit: Diagnoses [...] (Auto) 78.1 H, Lymph % (Auto) 13.7L, Anderson % (Auto) 6.1, Eos % (Auto) 1.5, [...] documentation, 30minutes Charges/Coding Visit Charges Inpatient E&M: 95861 Subs Hosp L2 02/23/23 1403 <Electronically signed by Pratima Jaime MD> Cosigner Signature (if applicable): CC: ~ Signed [facility] Work Phone: [phone]) 685-335504-12-[address] Gonzalez [facility] February 23, 2023 9:38am Note Date/Time February 23, 2023 9:3 8am [facility] Medical Records Department [address] [place] [address] Progress Note - Cardiology 02/23/23934 MR#: [id number] Acct: [id number] Name: POLI RAMIREZ Rep #:[id number] : 1950 72 From: Miroslava Gonzalez MD PCP: Barber Carlisle SCIENTIFIC RESEARCH ASSOCIATE-C Status:ADM I N Location: [place] [address] Subjective Subjective No chest pain or shortness [...] (Auto) 78.1 H, Lymph % (Auto) 13.7L, Anderson % (Auto) 6.1, Eos % (Auto) 1.5, [...] 78.1 H, Lymph % (Auto) 13.7 L, Anderson % (Auto) 6.1, Eos % (Auto) 1.5, [...] Cosigner Signature (if applicable): CC: ~ Signed [facility] Work Phone: 1(449) 548-513004-11-[address] Banks [facility] February 22, 2023 2:54pm Note Date/Time February 22, 2023 8:3 6am [facility] Medical Records Department [address] [place] [address] Progress Note - Mammalogist 02/22/23 0832 MR#: [id number] Acct: [id number] Name: POLI RAMIREZ Rep #:[id number] : 1950 72 From: Serge Banks MD [...] 82.0 H, Lymph % (Auto) 9.4 L, Anderson % (Auto) 6.6, Eos % (Auto) 1.6, [...] affect normal Charges/Coding Visit Charges Inpatient E&M: 61780 Subs Hosp L2 02/22/23 1454 <Electronically signed by Serge Banks MD> Cosigner Signature (if applicable): CC: ~ Signed [facility] Work Phone: [phone] Gonzalez [facility] February 22, 2023 9:26am Note Date/Time February 22, 2023 9:[address] [facility] Medical Records Department [address] [facility] [place] [address] Progress Note - Cardiology 02/22/23921 MR#: [id number] Acct: [id number] Name: POLI RAMIREZ Rep #:[id number] : 1950 72 From: Miroslava Gonzalez MD [...] 82.0 H, Lymph % (Auto) 9.4 L, Anderson % (Auto) 6.6, Eos % (Auto) 1.6, [...] 82.0 H, Lymph % (Auto) 9.4 L, Anderson % (Auto) 6.6, Eos % (Auto) 1.6, [...] Cosigner Signature (if applicable): CC: ~ Signed [facility] Work Phone: 1(850) 337-720004-11-[address] Jaime [facility] February 22, 2023 8:30am Note Date/Time February 22, 2023 8:3 0am [facility] Medical Records Department [address] [place] [address] Progress Note - Hospitalist 02/22/23819 MR#: [id number] Acct: [id number] Name: POLI RAMIREZ Rep #:[id number] : 1950 72 From: Pratima Jaime MD [...] 82.0 H, Lymph % (Auto) 9.4 L, Anderson % (Auto) 6.6, Eos % (Auto) 1.6, [...] documentation, 30minutes Charges/Coding Visit Charges Inpatient E&M: 00987 Subs Hosp L2 02/22/23 0830 <Electronically signed by Pratima Jaime MD> Cosigner Signature (if applicable): CC: ~ Signed [facility] Work Phone: [phone]) [phone] Jaime [facility] February 21, 2023 4:59pm Note Date/Time February 21, 2023 7:[address] [facility] Medical Records Department [address] [place] [address] Progress Note - Hospitalist 02/21/23 0707 MR#: [id number] Acct: [id number] Name: POLI RAMIREZ Rep #:[id number] : 1950 72 From: Pratima Jaime MD [...] Std Deviation 54.2 H, RDW Coeff of Aamnda 15.8 H, Plt Count 102 L, MPV 9.8, Immature Gran % (Auto) 0.700, Neut % (Auto) 79.0 H, Lymph % (Auto) 14.1 L, Anderson % (Auto) 5.3, Eos % (Auto) 0.7, [...] Bilirubin 0.80, AST 21, ALT 24, Alkaline Mwsyufazqxp20, Total Protein 5.6 L, Albumin 2.2 L, [...] - Final 02/17/23 22:33 Urine Catheter - Stehpens Legionella Antigen - Final 02/17/23 22:33 Urine [...] Referring Physician: Barber Carlisle Performed By: Fabi Delacruz RDCS, RVT Rhythm Strip Rhythm Strip: Sinus [...] documentation, 30minutes Charges/Coding Visit Charges Inpatient E&M: 87866 Subs Hosp L2 02/21/23 1539 <Electronically signed by Pratima Jaime MD> Cosigner Signature (if applicable): CC: ~ Signed [facility] Work Phone: [phone] Banks [facility] February 21, 2023 4:00pm Note Date/Time February 21, 2023 8:0 3am [facility] Medical Records Department [address] [place] [address] Progress Note - Mammalogist 02/21/23 0752 MR#: [id number] Acct: [id number] Name: POLI RAMIREZ Rep #:[id number] : 1950 72 From: Serge Banks MD PCP: Barber Carlisle SCIENTIFIC RESEARCH ASSOCIATEYaryC Status:ADM I N Location: ICU ICU03-1 Assessment [...] 79.0 H, Lymph % (Auto) 14.1 L, Anderson % (Auto) 5.3, Eos % (Auto) 0.7, [...] Bilirubin 0.80, AST 21, ALT 24, Alkaline Xwpvkewvyxh91, Total Protein 5.6 L, Albumin 2.2 L, [...] and affect normal Charges/Coding Procedures Hospitalists Procedures: 21636 Critial Care 1st Hr 02/21/23 1600 <Electronically signed by Serge Banks MD> Cosigner Signature (if applicable): CC: ~ Signed [facility] Work Phone: [phone] Gonzalez [facility] February 21, 2023 9:54am Note Date/Time February 21, 2023 9:5 4am [facility] Medical Records Department [address] [place] [address] Progress Note - Cardiology 02/21/23 0951 MR#: [id number] Acct: [id number] Name: POLI RAMIREZ Rep #:[id number] : 1950 72 From: Miroslava Gonzalez MD [...] 79.0 H, Lymph % (Auto) 14.1 L, Anderson % (Auto) 5.3, Eos % (Auto) 0.7, Baso % (Auto) 0.2, Absolute Neuts (auto) 3.3, Absolute Lymphs (auto) 0.59 L, Nucleated RBC % 0, DifferentialComment COMMENT, Diff Path Review May foll, Platelet Estimate SLT 02/21/23 03:10: Sodium 145, Potassium 3.2 L, Chloride 107, Carbon Dioxide 36.0 H, Anion Gap 2 L, BUN 17, Creatinine 0.93, Estim Creat Clear Calc 48.48, Est GFR (MDRD) Af Amer 76, Est GFR (MDRD) Non-Af 63, BUN/Creatinine Ratio 18.3, Glucose 190 H, Calcium 7.9 L, Total Bilirubin 0.80, AST 21, ALT 24, Alkaline Qrajirmbopt92, Total Protein 5.6 L, Albumin 2.2 L, [...] 79.0 H, Lymph % (Auto) 14.1 L, Anderson % (Auto) 5.3, Eos % (Auto) 0.7, [...] Physician: Barber Carlisle Performed By: Fabi Delacruz, DIANACS, RVT Physical Exam Narrative Intubated. Sedated on [...] Cosigner Signature (if applicable): CC: ~ Signed [facility] Work Phone: [phone] Consult note Author Armani Napier [facility] February 21, 2023 4:07am Note Date/Time February 21, 2023 4:0 7am [facility] Medical Records Department [address] [place] [address] Pharmacokinetic/Renal -Consult 02/21/236 MR#: [id number] Acct: [id number] Name: POLI RAMIREZ Rep #:[id number] : 1950 72 From: Armani Valdez od PCP: Barber Carlisle SCIENTIFIC RESEARCH ASSOCIATE-C Status:ADM I N Y Location: ICU ICU03-1 [...] Signature (if applicable): Date CC: ~ Signed [facility] Work Phone: [phone] Monique [facility] February 20, 2023 4:59pm Note Date/Time February 20, 2023 4:37 pm [facility] Medical Records Department [address] [place] [address] Progress Note - Mammalogist 02/20/23 1634 MR#: [id number] Acct: [id number] Name: POLI RAMIREZ Rep #:[id number] : 1950 72 From: Martín Monique MD [...] performed. [place] [address] Subjective Subjective Intubated and sedated on ventilator, [...] 02/19/23 02/20/23 23:59 23:59 23:59 Intake Total 2108.9633 / 2106.6633 1929.82 / 2035.72 1417.04 / 1417.04 Output Total 3250 / [...] (Auto) 80.9 H, Lymph % (Auto) 11.6L, Anderson % (Auto) 6.4, Eos % (Auto) 0.2, [...] Physician: Barber Carlisle Performed By: Fabi Delacruz, DIANACS, RVT Chest X-Ray 02/20/23 06:28 IMPRESSION: No significant interval change from prior exam. Endotracheal tube 7.1 as above the judith at the level of clavicles. Electronically Signed: Keny Duron MD at 6:54 EDT , Rhythm Strip Rhythm Strip: Sinus Rhythm Rate: 95 Ectopy: None Physical Exam Narrative 10 system exam done. Unchanged from yesterday. Charges/Coding Procedures Hospitalists Procedures: 20268 Critial Care 1st Hr 02/20/23 1659 <Electronically signed by Martín Monique MD> Cosigner Signature (if applicable): CC: ~ Signed [facility] Work Phone: [phone] Gonzalez [facility] February 20, 2023 10:38am Note Date/Time February 20, 2023 10:[address] [facility] Medical Records Department [address] [place] [address] Progress Note - Cardiology 02/20/23 1035 MR#: [id number] Acct: [id number] Name: POLI RAMIREZ Rep #:[id number] : 1950 72 From: Miroslava Gonzalez MD PCP: Barber Carlisle NP-Andrea Status:ADM I N Location: ICU ICU03-1 Subjective [...] (Auto) 80.9 H, Lymph % (Auto) 11.6L, Anderson % (Auto) 6.4, Eos % (Auto) 0.2, [...] 80.9 H, Lymph % (Auto) 11.6 L, Anderson % (Auto) 6.4, Eos % (Auto) 0.2, [...] Cosigner Signature (if applicable): CC: ~ Signed [facility] Work Phone: [phone] 172-166604-09-[address] Padron [facility] February 20, 2023 8:46am Note Date/Time February 20, 2023 7:[address] [facility] Medical Records Department [address] [place] [address] Progress Note - Hospitalist 02/20/23711 MR#: [id number] Acct: [id number] Name: POLI RAMIREZ Rep #:[id number] : 1950 72 From: Hernando Padron MD [...] (Auto) 80.9 H, Lymph % (Auto) 11.6L, Anderson % (Auto) 6.4, Eos % (Auto) 0.2, [...] 45 Minutes Charges/Coding Visit Charges Inpatient E&M: 63834 Subs Hosp L2 02/20/23 0846 <Electronically signed by Hernando Padron MD> Cosigner Signature (if applicable): CC: ~ Signed [facility] Work Phone: [phone]) 704-485104-09-[address] Padron [facility] February 20, 2023 7:12am Note Date/Time February 19, 2023 5:15 pm [facility] Medical Records Department [address] [place] [address] Pharmacokinetic/Renal -Consult 02/19/23 1711 MR#: [id number] Acct: [id number] Name: POLI RAMIREZ Rep #:[id number] : 1950 72 From: Gretchen Lance PCP: [...] - 4.10.23 @0330 before 0400 dose 02/19/23 0504 <Electronically signed by Gretchen Lance > Date _ Gretchen Natalio 02/20/23711 <Electronically signed by Hernando Padron MD> Cosigner Signature (if applicable): Date Hernando Padron MD CC: ~ Signed [facility] Work Phone: [phone] Monique [facility] February 19, 2023 1:55pm Note Date/Time February 19, 2023 10:[address] [facility] Medical Records Department [address] [place] [address] Progress Note - Mammalogist 02/19/23 1047 MR#: [id number] Acct: [id number] Name: POLI RAMIREZ Rep #:[id number] : 1950 72 From: Martín Monique MD [...] performed. [place] [address], [address]. Subjective Subjective Subjective patient is mildly sedated [...] 105/66 96 Mechanical Ventilator 40 02/19/23 10:02/19/23 10:00 02/19/23 10:00 02/19/23 10:00 02/19/23 10:02/19/23 10:02/19/23 10:00 Oxygen Delivery Method Mechanical Ventilator [...] 79.0 H, Lymph % (Auto) 13.9 L, Anderson % (Auto) 6.5, Eos % (Auto) 0.2, [...] Cosigner Signature (if applicable): CC: ~ Signed [facility] Work Phone: [phone] Gonzalez [facility] February 19, 2023 11:57am Note Date/Time February 19, 2023 11:[address] [facility] Medical Records Department [address] [place] [address] Consultation - Cardiology 02/19/23 1146 MR#: [id number] Acct: [id number] Name: POLI RAMIREZ Rep #:[id number] : 1950 72 From: Miroslava Gonzalez MD [...] intubated and unable to provide any history. [facility] Medical History (Updated 02/19/23 @ 11:53 by [...] bisacodyl 10 mg rectal suppository 10 mg OR DAILY PRN 11/11/22 [History Last Taken Unknown] [...] (Updated 02/18/23 @ 00:[address] Rebecca Resendiz, DO) housing: half-way Smoking Status: Former smoker alcohol intake: never [...] 79.0 H, Lymph % (Auto) 13.9 L, Anderson % (Auto) 6.5, Eos % (Auto) 0.2, [...] 79.0 H, Lymph % (Auto) 13.9 L, Anderson % (Auto) 6.5, Eos % (Auto) 0.2, [...] Gonzalez MD> Cosigner Signature (if applicable): CC: SCIENTIFIC RESEARCH ASSOCIATE-Andrea Richey; SCIENTIFIC RESEARCH ASSOCIATE-C Barber Carlisle; Dr. Serge Banks MD; Dr. Hernando Padron MD; Dr. Ajit Mcgill DO; Dr. Thomas Ahumada MD; Dr. Rebecca Resendiz DO; Dr. Martín Monique MD; Dr. Krzysztof Pennington MD~ Signed [facility] Work Phone: [phone] Padron [facility] February 19, 2023 8:28am Note Date/Time February 19, 2023 7:[address] [facility] Medical Records Department [address] [place] [address] Progress Note - Hospitalist 02/19/23709 MR#: [id number] Acct: [id number] Name: POLI RAMIREZ Rep #:[id number] : 1950 72 From: Hernando Padron MD [...] 79.0 H, Lymph % (Auto) 13.9 L, Anderson % (Auto) 6.5, Eos % (Auto) 0.2, [...] Final ABG Data ABG results: ABG 02/18/23 02/18/2302/19/23 08:39 17:16 04:19 Specimen Type ART ART [...] To/Read Back Yes Blood Gas Notified Whom TSEW SILVA Blood Gas Notified Time 1716 Radiography Diagnostic Testing: Radiology Impression Echocardiogram 02/18/23 08:21 Interpretation Summary The study was technically difficult. Severely dilated left ventricle. Severe global left ventricular systolic dysfunction. The left ventricular ejection fraction is 10 %. Mild global right ventricular systolic dysfunction. Large left pleural effusion. Ordering Physician: Hernando Padron Performed By: Bhupinder Rendon, [facility] Chest Ultrasound 02/18/23 12:16 IMPRESSION: No significant [...] 55 Minutes Charges/Coding Visit Charges Inpatient E&M: 76205 Subs Hosp L3 02/19/23 0828 <Electronically signed by Hernando Padron MD> Cosigner Signature (if applicable): CC: ~ Signed [facility] Work Phone: [phone] 144-674404-07-[address] Monique [facility] February 18, 2023 8:01pm Note Date/Time February 18, 2023 9:[address] [facility] Medical Records Department [address] [place] [address] Consultation - Mammalogist 02/18/23 0953 MR#: [id number] Acct: [id number] Name: POLI RAMIREZ Rep #:[id number] : 1950 72 From: Martín Monique MD [...] Monique MD> Cosigner Signature (if applicable): cc: ARLENE Richey; ARLENE Carlisle; Dr. Serge Banks MD; [...] Thank you for consulting [facility] for critical care. We will follow the patient with you.. Martín Monique MD [facility] HPI Consult Data Date of Consult: 02/18/23 HPI Narrative Reason for Consultation: Respiratory failure on mechanical ventilation, chronic hypercarbia HPI Narrative: POLI RAMIREZ, is a unfortunate 72-year-old woman who was at the half-way for rehab after neck fracture was found unresponsive at her half-way with SPO2 70s GCS 3.? No response [...] GERD, frequent falls, insomnia, obstructive sleep apnea, SC, generalized weakness, displaced fracture of the sixth and seventh cervical vertebrae, pancytopenia, history of breast cancer, nicotine dependence, osteoarthritis both shoulders, type 2 diabetes with diabetic neuropathy, impaired mobility, venous insufficiency, urinary incontinence. Her home medications were reviewed. Surgical history: Left breast lumpectomy, C-spine surgery, cholecystectomy. Family history is noncontributory.? Social history she is a former smoker. [facility] Medical History (Updated 02/18/23 @ 12:37 by [...] bisacodyl 10 mg rectal suppository 10 mg OR DAILY PRN 11/11/22 [History Last Taken Unknown] [...] 00:[address] Rebecca Resendiz DO) housing: half-way Smoking Status: Former smoker alcohol intake: never [...] 87.0 H, Lymph % (Auto) 6.6 L, Anderson % (Auto) 3.6, Eos % (Auto) 0.2, [...] Sl. Cloudy, Urine pH 5.0, Ur Specific Converse 1.030, Urine Protein 100 H, Urine Glucose [...] 88.6 H, Lymph % (Auto) 4.5 L, Anderson % (Auto) 5.7, Eos % (Auto) 0.0, [...] ED MD MONIQUE Blood Gas Notified Time 2248 Rhythm Strip Rhythm Strip: Sinus Rhythm Rate: [...] 2:02 EDT , Charges/Coding Procedures Hospitalists Procedures: 25402 Critial Care 1st Hr 02/18/23 1241 <Electronically signed by Martín Monique MD> Cosigner Signature (if applicable): CC: SCIENTIFIC RESEARCH ASSOCIATEGiancarlo Richey; ARLENE Carlisle; Dr. Serge Banks MD; Dr. Ajit Mcgill DO; Dr. Thomas Ahumada MD; Dr. Rebecca Resendiz DO; Dr. Martín Monique MD; Dr. Krzysztof Pennington MD~ Signed [facility] Work Phone: [phone] Padron [facility] February 18, 2023 8:24am Note Date/Time February 18, 2023 7:16 am [facility] Medical Records Department [address] [place] [address] Progress Note - Hospitalist 02/18/23711 MR#: [id number] Acct: [id number] Name: POLI RAMIREZ Rep #:[id number] : 1950 72 From: Hernando Padron MD [...] 87.0 H, Lymph % (Auto) 6.6 L, Anderson % (Auto) 3.6, Eos % (Auto) 0.2, [...] Sl. Cloudy, Urine pH 5.0, Ur Specific Converse 1.030, Urine Protein 100 H, Urine Glucose [...] 88.6 H, Lymph % (Auto) 4.5 L, Anderson % (Auto) 5.7, Eos % (Auto) 0.0, [...] Notified Whom ED Blood Gas Notified Time 2245 Radiography Diagnostic Testing: Radiology Impression Brain CT [...] 55 Minutes Charges/Coding Visit Charges Inpatient E&M: 53925 Subs Hosp L3 02/18/23 0824 <Electronically signed by Hernando Padron MD> Cosigner Signature (if applicable): CC: ~ Signed [facility] Work Phone: [phone] Consult note Author Armani Napier [facility] February 18, 2023 4:15am Note Date/Time February 18, 2023 4:15 am [facility] Medical Records Department [address] [place] [address] Pharmacokinetic/Renal -Consult 02/18/23 0414 MR#: [id number] Acct: [id number] Name: VALERIYPOLI J Rep #:[id number] : 1950 72 From: Armani Valdez od PCP: ARLENE Edmonds Status:ADM I N Y Location: ICU ICU03- Consult Pharmacy has been consulted to manage [...] and time ordered]: 02/19 @ 1530 02/18/23 9171 <Electronically signed by Armani bolaños > Date _ Armani Rao Signature (if applicable): Date CC: ~ Signed [facility] Work Phone: [phone] History and physical note Author Dr. Resendiz [facility] February 18, 2023 1:48am Note Date/Time February 18, 2023 12:3 2am [facility] Medical Records Department [address] [place] [address] H&P Exam - Hospitalist 02/18/23 0029 MR#: [id number] Acct: [id number] Name: POLI RAMIREZ Rep #:[id number] : 1950 72 From: Rebecca Resendiz DO PCP: ARLENE Edmonds Status:ADM I N Location: ICU ICU03-1 HPI - General General Date of Admission: 02/18/23 Date of Service: 02/18/23 Chief Complaint: Unresponsiveness HPI Narrative POLI RAMIREZ, is a 72 F who presented to the emergency department at [facility] secondary to unresponsiveness. The patient was found to be unresponsive by the half-way staff at where she lives. Upon presentation [...] EKG showed normal sinus rhythm with normal OR interval however she has slightly prolonged QTc. No signs of ischemic changes were noted. [facility] Medical History Anemia Atherosclerotic heart disease Chronic [...] bisacodyl 10 mg rectal suppository 10 mg OR DAILY PRN 11/11/22 [History Last Taken Unknown] [...] 00:[address] Rebecca Resendiz DO) housing: half-way Smoking Status: Former smoker alcohol intake: never [...] 87.0 H, Lymph % (Auto) 6.6 L, Anderson % (Auto) 3.6, Eos % (Auto) 0.2, [...] Sl. Cloudy, Urine pH 5.0, Ur Specific Converse 1.030, Urine Protein 100 H, Urine Glucose [...] 0:01 EDT Reading Location ID and State: [employer] / [place] Tel , Service support , Assessment & Plan Assessment/Plan (1) Metabolic [...] the morning Charges/Coding Visit Charges Inpatient E&M: 67096 Init Hosp L3 02/18/23 0148 <Electronically signed by Rebecca Resendiz DO> Cosigner Signature (if applicable): CC: ARLENE Carlisle; Dr. Rebecca Resendiz DO~ Signed [facility] Work Phone: [phone]) 268-202704-07-[address] Tsai [facility] February 18, 2023 12:19am Note Date/Time February 17, 2023 10:[address] [facility] Medical Records Department [address] [place] [address] Emergency Department Summary 02/17/23 MR#: [id number] Acct: [id number] Name: POLI RAMIREZ Rep #:[id number] : 1950 72 From: Ellis Tsai MD PCP: ARLENE Edmonds Status:REG E R Location: ED HPI History of Present Illness Chief Complaint: Unresponsive Informant: EMS Narrative Narrative: Patient brought from local half-way found unresponsive by half-way staff. Barely breathing, hypoxic in the 70s [...] ox 60[facility] not breathing. Last seen normal about 3 hours prior to evaluation here. Apparently she is in a half-way for rehab after a neck fracture. She does not have any collar or cervical spine hardware. EMS also states that family wasapparently there yesterday, and the half-way staff was suspicious that they may be in the drugs. [facility] Medical History (Updated 02/18/23 @ 00:06 by [...] bisacodyl 10 mg rectal suppository 10 mg OR DAILY PRN 11/11/22 [History Last Taken Unknown] [...] 87.0 H Lymph % (Auto) 6.6 L Anderson % (Auto) 3.6 Eos % (Auto) 0.2 [...] Sl. Cloudy Urine pH 5.0 Ur Specific Converse 1.030 Urine Protein 100 H Urine Glucose [...] (Auto) Neut % (Auto) Lymph % (Auto) Anderson % (Auto) Eos % (Auto) Baso % [...] Color Urine Clarity Urine pH Ur Specific Converse Urine Protein Urine Glucose (UA) Urine Ketones [...] Management Discussion w/another healthcare provider: Hospitalist and Waste [employer] Bat[employer] Waste [employer]pper (javi mcgill) Procedures Intubations Intubation Method: orotracheal [...] pulmonary disease) Disposition Disposition: Acute Care Hospital [facility] What to do if you have Problems For any increased pain, shortness of breath, bleeding, nausea or vomiting, chestpain, or any unexpected problems, contact your Primary Care Provider. Call [facility] ([phone]) or report to the closest Emergency Room. Call 911 if necessary. 02/18/23 0019 <Electronically signed by Ellis Tsai MD> Cosigner Signature (if applicable): CC: ARLENE Carlisle ~ Signed [facility] Work Phone: 1(381) 580-487504-07-[address] Tsai [facility] February 18, 2023 12:19am Note Date/Time February 17, 2023 10:3 4pm [facility] Medical Records Department [address] [place] [address] Emergency Department Summary 02/17/23 MR#: [id number] Acct: [id number] Name: POLI RAMIREZ Rep #:[id number] : 1950 72 From: Ellis Tsai MD PCP: ARLENE Edmonds Status:REG E R Location: ED HPI History of Present Illness Chief Complaint: Unresponsive Informant: EMS Narrative Narrative: Patient brought from local half-way found unresponsive by half-way staff. Barely breathing, hypoxic in the 70s [...] ox 60% [facility] and patient not breathing. Last seen normal about 3 hours prior to evaluation here. Apparently she is in a half-way for rehab after a neck fracture. She does not have any collar or cervical spine hardware. EMS also states that family wasapparently there yesterday, and the half-way staff was suspicious that they may be in the drugs. [facility] Medical History (Updated 02/18/23 @ 00:06 by [...] bisacodyl 10 mg rectal suppository 10 mg OR DAILY PRN 11/11/22 [History Last Taken Unknown] [...] 87.0 H Lymph % (Auto) 6.6 L Anderson % (Auto) 3.6 Eos % (Auto) 0.2 [...] Sl. Cloudy Urine pH 5.0 Ur Specific Converse 1.030 Urine Protein 100 H Urine Glucose [...] (Auto) Neut % (Auto) Lymph % (Auto) Anderson % (Auto) Eos % (Auto) Baso % [...] Color Urine Clarity Urine pH Ur Specific Converse Urine Protein Urine Glucose (UA) Urine Ketones [...] Management Discussion w/another healthcare provider: Hospitalist and Waste And Batting Waste Chopper (jvai mcgill) Procedures Intubations Intubation Method: orotracheal Intubation [...] pulmonary disease) Disposition Disposition: Acute Care Hospital [facility] What to do if you have Problems For any increased pain, shortness of breath, bleeding, nausea or vomiting, chestpain, or any unexpected problems, contact your Primary Care Provider. Call [facility] ([phone]) or report to the closest Emergency Room. Call 911 if necessary. 02/18/23 0019 <Electronically signed by Ellis Tsai MD> Cosigner Signature (if applicable): CC: ARLENE Carlisle ~ Signed [facility] Work Phone: 1([phone]) 527-542009-13-2022 Hospital Discharge instructions Patient Education 07/27/2022 11:52:16 [...] are safe for you. General instructions Take hhed-ejo-ltanvdj and prescription medicines only as told by [...] 09/17/2005 Document Revised: 10/13/2018 Document Reviewed: 08/04/2017 [employer] Patient Education 2020 [employer]. Follow Up Care 07/11/2022 11:22:15 With:[facility] [phone] skilled Address:Unknown When:1-2 days With:BARBER CARLISLE Address: [address] [facility] [place] [address] [phone] Business (1) When:1-2 days With:BYRON STUBBS, TRACE Sprague, Neurosurgery Address: [address] [facility] [place] [address] [phone] When:08/10/2022 11:00:00 [facility] 09-13-2022 Note Discharge Instructions Thank you for allowing [facility] to assist you with your healthcare needs. [...] Op 08/10/2022 11:00 AM EDT Neurosurgery [address] [phone] Follow Up Appointments Follow Up with BYRON STUBBS, TRACE Sprague, Neurosurgery When 08/10/2022 11:00 AM EDT Where: [address] [facility] [address] [place] [address]- [phone] [facility] [phone] skilled When Within 1-2 days Follow Up with BARBER CARLISLE When Within 1-2 days Where: [address] [place] [address] [phone] Business (1) The Following Activity and Diet [...] The extended-release form of oxycodone is for rxycsj-fqw-iejmv treatment of pain and should not be [...] against the law. Stop taking all other faydig-syr-zvwvh opioid pain medicines when you start taking [...] may report side effects to FDA at 0-883-KTS-5192. What other drugs will affect oxycodone? You [...] drugs may affect oxycodone. This includes prescription nkvljxo-oya-jcdjqvc medicines, vitamins, and herbal products. Not all [...] to ensure that the information provided by [employer]. ('Multum') is accurate, up-to-date, and complete, but no guarantee is made to that effect. Drug information contained herein may be time sensitive. [employer] (1BOG) information has been compiled for use by healthcare practitioners and consumers in the [place] and therefore [employer] (1BOG) does not warrant that uses outside of the [place] are appropriate, unless specifically indicated otherwise. Multum's drug information does not endorse drugs, diagnose patients or recommend therapy. GraphLabs drug information isan informational resource designed to [...] effective or appropriate for any given patient. nVoq does not assume any responsibility for any aspect of healthcare administered with the aid of information [employer] (1BOG) provides. The information contained herein is not intended to cover all possible uses, directions, precautions, warnings, drug interactions, allergic reactions, or adverse effects. If you have questions about the drugs you are taking, check with your doctor, nurse or pharmacist. Copyright 9044-3118 [employer]. Version: 14.02. Revision Date: 12/11/2020. Education Materials [...] are safe for you. General instructions Take iufn-emz-uidfkvj and prescription medicines only as told by [...] 09/17/2005 Document Revised: 10/13/2018 Document Reviewed: 08/04/2017 [employer] Patient Education 2020 [employer] Inc. Additional Information VACCINATE! IT SAVES LIVES! Members of the community who have not yet received the COVID-19 vaccine and would like to receive it can visit one of [facility] vaccine clinics. There are many vaccine clinic locations within the [facility]. For locations and available times, please visit https://[email or web address].[place].gov/. It is important to note that some COVID mobile vaccine clinics are held outdoors and may be canceled in rainy or stormy conditions. To learn more about pediatric vaccinations (ages 5-11), we invite you to visit the [facility] webpage. https://www.[facility].org/pages/5003-Mndoq-Wtskjchimaw-Wvgilpleog-Zobpb-Ghs stions.htmlTo learn more about the COVID-19 vaccine, we invite you to visit the [facility] website for a list of frequently asked questions. https://[email or web address].Polybiotics/assets/Agvesznw-wrp-Xyzihaef/lqnji-Jchmptr-Aotihrpfsf _Asked-Questions.pdf [facility] Patient Portal Access Instructions: Stay connected with your healthcare team and access your personal medical information anytime with the [facility] Patient Portal.If you would like a full copy of your medical records, please contact the [facility] Medical Records Department, Tuesday through Tuesday between 8a.m. and 4:30p.m. Please follow the directions below to access the portal: 1.Access the email account you provided upon registration to the [facility].2.Look for an invitation email from [facility].3.Open the email and access the invitation link: Accept Invitation to [facility]4.Fill in the required quijano to create your [...] you will allow to register on the [facility] Patient Portal for access to your information. You can also access the [facility] Patient Portal on the ClassOwl marcy. Simply click on Health Records under Soligenix and then click on the [facility] logo. HOW TO SAFELY DISPOSE OF PRESCRIPTION [...] Call your local pharmacy or go to [email or web address] to find one close to you.3.Make use of household items: Use cat litter or old coffee grounds to dispose medications if other options arenot available. Mix your drugs with these household products, seal them in an airtight container andthrow it into the garbage. Call [facility]: [phone] to be sure your drugs can be [...] that I should contact my d octor. Patient/Resaw Machine Operator Signature: Date/Time: Relationship to Patient: Witness Name/Signature: Date/Time: [facility]08-[facility]-3083 Note Discharge Instructions Thank you for allowing [facility] to assist you with your healthcare needs. The following is importantdischarge information regarding your hospital visit. 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 Your Diagnosis S/P fall, resulting in C6-7 [...] FREDY Edmonds Neck Xray at [facility], [facility] floor Radiology Dept on 08/10/2022 at [...] Op 08/10/2022 11:00 AM EDT Neurosurgery [address] [phone] Follow Up Appointments Follow Up with BYRON STUBBS, TRACE pSrague, Neurosurgery When 08/10/2022 11:00 AM EDT Where: [address] [address] [phone] Follow Up with [facility] [phone] skilled When Within 1-2 days Follow Up with BARBER CARLISLE When Within 1-2 days Where: [address] [place] [phone] Business (1) The Following Activity and Diet [...] to receive it can visit one of [facility] vaccine clinics. There are many vaccine clinic locations within the [facility]. For locations and available times, please visit https://[email or web address].[place].gov/. It is important to note that some COVID mobile vaccine clinics are held outdoors and may be canceled in rainy or stormy conditions. To learn more about pediatric vaccinations (ages 5-11), we invite you to visit the [facility] webpage. https://www.[facility].org/pages/7358-Omgzp-Lvymhaywsyp-Zkymqqnibb-Vlzcm-Zds stions.htmlTo learn more about the COVID-19 vaccine, we invite you to visit the [facility] website for a list of frequently asked questions. https://[email or web address]/assets/Hfzubkhz-xbu-Ytiwckko/rczma-Sbdirbw-Rzuwyqnqsl _Asked-Questions.pdf [facility] Patient Portal Access Instructions: Stay connected with your healthcare team and access your personal medical information anytime with the [facility] Patient Portal.If you would like a full copy of your medical records, please contact the [facility] Medical Records Department, Tuesday through Tuesday between 8a.m. and 4:30p.m. Please follow the directions below to access the portal: 1.Access the email account you provided upon registration to the [facility].2.Look for an invitation email from [facility].3.Open the email and access the invitation link: Accept Invitation to [facility]4.Fill in the required quijano to create your account. Sign into www.Circle with your username and password that you [...] you will allow to register on the [facility] Patient Portal for access to your information. You can also access the [facility] Patient Portal on the ClassOwl marcy. Simply click on Health Records under Soligenix and then click on the [facility] logo. [...] Call your local pharmacy or go to [email or web address] [email or web address] to find one close to you.3.Make use of household items: Use cat litter or old coffee grounds to dispose medications if other options arenot available. Mix your drugs with these household products, seal them in an airtight container andthrow it into the garbage. Call [facility]: [phone] to be sure your drugs can be [...] that I should contact my d octor. Patient/Resaw Machine Operator Signature: Date/Time: Relationship to Patient: Witness Name/Signature: Date/Time: [facility] HospitalPoftgtsj25-91-8376 Note Discharge Instructions Thank you for allowing [facility] to assist you with your healthcare needs. [...] Op 08/10/2022 11:00 AM EDT Neurosurgery [address] [address] Follow Up Appointments Follow Up with BYRON STUBBS, TRACE Sprague, Neurosurgery When 08/10/2022 11:00 AM EDT Where: [address] [facility] [address] [place] [address] [phone] Follow Up with [facility] [phone] skilled When Within 1-2 days Follow Up with BARBER CARLISLE When Within 1-2 days Where: [address] [facility] [place] [phone] Business (1) The Following Activity and Diet [...] to receive it can visit one of [facility] vaccine clinics. There are many vaccine clinic locations within the [facility]. For locations and available times, please visit https://[email or web address].[place].gov/. It is important to note that some COVID mobile vaccine clinics are held outdoors and may be canceled in rainy or stormy conditions. To learn more about pediatric vaccinations (ages 5-11), we invite you to visit the [facility] webpage. https://www.Evvers.org/pages/3750-Dtnut-Zcrprrahwsg-Vkfzwghtbt-Aupay-Rrg stions.htmlTo learn more about the COVID-19 vaccine, we invite you to visit the [facility] website for a list of frequently asked questions. https://[email or web address]/assets/Aasmoiwc-fzr-Uflissht/wysxu-Nwniwnt-Wmnrbzcnyh _Asked-Questions.pdf [facility] Patient Portal Access Instructions: Stay connected with your healthcare team and access your personal medical information anytime with the [facility] Patient Portal.If you would like a full copy of your medical records, please contact the [facility] Medical Records Department, Tuesday through Tuesday between 8a.m. and 4:30p.m. Please follow the directions below to access the portal: 1.Access the email account you provided upon registration to the [facility].2.Look for an invitation email from [facility].3.Open the email and access the invitation link: Accept Invitation to [facility]4.Fill in the required quijano to create your account. Sign into www.Circle with your username and password that you [...] you will allow to register on the [facility] Patient Portal for access to your information. You can also access the [facility] Patient Portal on the trbo GmbH. Simply click on Health Records under Soligenix and then click on the Promoboxx logo. HOW TO SAFELY DISPOSE OF PRESCRIPTION [...] Call your local pharmacy or go to [email or web address] [email or web address] to find one close to you.3.Make use of household items: Use cat litter or old coffee grounds to dispose medications if other options arenot available. Mix your drugs with these household products, seal them in an airtight container andthrow it into the garbage. Call [facility]: [phone] to be sure your drugs can be [...] that I should contact my d octor. 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 She is motivated to mobilize. She is asking when able to be discharged home. I explained she will need prison care, than goal with home-going. Admits to [...] worsening weakness, remains with slight weakness left anesthesia tech strength and numbness in left hand. Weight [...] fracture of C6 with extension distraction fracture C6-X3hbzaz no change in alignment. XR Spine Cervical [...] by NITA MADERA on 07/26/2022 06:15 AM [facility] HospitalMgxdfzdl00-20-5292 Note Date of Service 07/25/2022 Neurosurgical CC: Unstable cervical spine injury, post repair POD #12, C2-C7 posterior cervical decompressive laminectomy and C2-T2 posterior cervical instrumented fusion Patient remains in the hospital awaiting precertification for prison facility No acute events overnight. Patient has [...] fracture of C6 with extension distraction fracture C6-S5twxvr no change in alignment. XR Spine Cervical [...] MADERA APRN-SILVINO on 07/25/2022 05:40 AM [facility] HospitalIprzhcfs96-59-2165 Note Date of Service 07/23/2022 Patient reviewed [...] fracture of C6 with extension distraction fracture C6-M2xwtxt no change in alignment. XR Chest 1 [...] to the office visit Discussed case with sheep farm worker. Aware patient remains ready for discharge. Digitally Signed by NITA MADERA APRN-SILVINO on 07/24/2022 11:41 AM [facility] HospitalRdoippxc64-04-6673 Note Chief Complaint Pain Subjective Pain under [...] MD FACP on 07/23/2022 04:02 PM [facility] HospitalLvovsrwt60-78-5479 Note Date of Service 07/23/2022 Patient reviewed [...] fracture of C6 with extension distraction fracture C6-L1ednbm no change in alignment. XR Spine Cervical [...] MADERA APRN-SILVINO on 07/23/2022 06:18 AM [facility] HospitalXfpugikx65-04-1819 Note Date of Service 07/23/2022 Patient reviewed [...] fracture of C6 with extension distraction fracture C6-W3gseyt no change in alignment. XR Spine Cervical [...] Discharge today Digitally Signed by NITA MADERA APRN-GRAIN OILSEED OR PASTURE FARM WORKER on 07/23/2022 06:18 AM [facility] HospitalSrvkkmao67-47-9365 Note Chief Complaint hypotension Subjective Patient was [...] RUBIO MD FACP on 07/22/2022 08:16 PM [facility] HospitalQepbbkua00-45-6284 Neurological surgery Progress note Date of Service Addendum by NITA MADREA on July 22, 2022 06:06:28 EDT (Verified) [...] by NITA MADERA on 07/22/2022 09:56 AM [facility] HospitalZmuhmqxt63-86-2080 Discharge summary Date of Service 07/21/2022 Discharge Diagnosis 1. S/P fall, resulting in C6-7 distraction injury with bilateral pedicle fractures ([id number] - [facility]) 2. S/P C2-C7 decompressive laminectomy, C2-T2 posterior bone screw/merari fixation and fusion ([id number] - [facility]) 3. DM2 (diabetes mellitus, type [...] and face. She was evaluated in the [facility] emergency department, where she was found [...] She is ready to be discharged to [facility]. Her discharge instructions and restrictions been provided to [facility]. Her follow-up appointment has been arranged. Allergies [...] fracture of C6 with extension distraction fracture C6-B6iiagl no change in alignment. XR Chest 1 [...] 09:30 AM EDT Where: [address] [facility] [address] [facility] [place] [address]- [phone] Follow Up Appointments See above Follow Up [...] Score No qualifying data available. Discharge Disposition [facility] Information Provided To Patient and [facility] Time Spent 15 min Digitally Signed by ARYAN VAZ on 07/21/2022 08:46 AM Digitally Signed by TRACE MATTHEWS MD on 07/21/2022 11:25 AM [facility] HospitalQtvmqvha21-77-2560 Discharge summary Date of Service 07/21/2022 Discharge Diagnosis 1. S/P fall, resulting in C6-7 distraction injury with bilateral pedicle fractures ([id number] - [facility]) 2. S/P C2-C7 decompressive laminectomy, C2-T2 posterior bone screw/merari fixation and fusion ([id number] - [facility]) 3. DM2 (diabetes mellitus, type [...] and face. She was evaluated in the [facility] emergency department, where she was found [...] She is ready to be discharged to [facility]. Her discharge instructions and restrictions been provided to [facility]. Her follow-up appointment has been arranged. Allergies [...] fracture of C6 with extension distraction fracture C6-I8pwdyi no change in alignment. XR Chest 1 [...] 09:30 AM EDT Where: [address] [facility] [address] [facility] [place] [address]- [phone] Follow Up Appointments See above Follow Up [...] Score No qualifying data available. Discharge Disposition [facility] Information Provided To Patient and [facility] Time Spent 15 min Digitally Signed by ARYAN VAZ on 07/21/2022 08:46 AM Digitally Signed by TRACE MATTHEWS MD on 07/21/2022 11:25 AM [facility] HospitalJmcjnjax36-02-9072 Discharge summary Date of Service 07/21/2022 Discharge Diagnosis 1. S/P fall, resulting in C6-7 distraction injury with bilateral pedicle fractures ([id number] - [facility]) 2. S/P C2-C7 decompressive laminectomy, C2-T2 posterior bone screw/merari fixation and fusion ([id number] - [facility]) 3. DM2 (diabetes mellitus, type [...] and face. She was evaluated in the [facility] emergency department, where she was found [...] She is ready to be discharged to [facility]. Her discharge instructions and restrictions been provided to [facility]. Her follow-up appointment has been arranged. Allergies [...] fracture of C6 with extension distraction fracture C6-D9isklb no change in alignment. XR Chest 1 [...] When 07/27/2022 09:30 AM EDT Where: [address] [facility] [place] [phone] Follow Up Appointments See above Follow Up [...] Score No qualifying data available. Discharge Disposition [facility] Information Provided To Patient and [facility] Time Spent 15 min Digitally Signed by ARYAN VAZ on 07/21/2022 08:46 AM Digitally Signed by TRACE MATTHEWS MD on 07/21/2022 11:25 AM [facility] HospitalCcntsscy97-98-4297 Note Date of Service 07/21/22 Chief Complaint Weakness Subjective Patient is a very pleasant 71-year-old female with a past medical history significant for hypertension, obesity, hyperlipidemia, COPD, severe restrictive airway disease follows with [facility] pulmonology, noninsulin-dependent type 2 diabetes, venous insufficiency, goiter, GERD, chronic back pain and hypoxic respiratory failure wearing 2 L oxygen via nasal cannula continuous at home. Patient originally presented to [facility] emergency department on July 11, 2022. Patient sustained a mechanical fall over her walker landing on the left side of her face. [facility]. Patient was noted to have significant cervical spine injury and transferred to [facility] emergency department for further evaluation. Patient was [...] 20 15:30) 20(JUL 20 19:50) SBP 114(JUL 21:) 114(JUL 21 03:43) 139(JUL 20 19:50) DBP 76(JUL 21 13:) L 51(JUL 21 03:43) 76(JUL 21:) Physical [...] patient's primary care physician covering provider at prison facility. Continue home medication. Blood glucose checks [...] therapy involved. Recommending patient be discharged to prison facility. Patient is agreeable to discharge to prison facility. Discharge per primary team. At this [...] JOANNA TOMLINSON on 07/21/2022 02:49 PM [facility] HospitalHzbnmefi40-19-2864 Discharge summary Date of Service 07/21/2022 Discharge Diagnosis 1. S/P fall, resulting in C6-7 distraction injury with bilateral pedicle fractures ([id number] - [facility]) 2. S/P C2-C7 decompressive laminectomy, C2-T2 posterior bone screw/mearri fixation and fusion ([id number] - [facility]) 3. DM2 (diabetes mellitus, type [...] and face. She was evaluated in the [facility] emergency department, where she was found [...] She is ready to be discharged to [facility]. Her discharge instructions and restrictions been provided to [facility]. Her follow-up appointment has been arranged. Allergies [...] fracture of C6 with extension distraction fracture C6-T5dhtbl no change in alignment. XR Chest 1 [...] Date: July 13, 2022 Verified By: EDER CLAKR MD CLINICAL STATEMENT: IMPRESSION: Intraprocedural fluoroscopic spot [...] 09:30 AM EDT Where: [address] [facility] [address] [facility] [place] [address] [phone] Follow Up Appointments See above Follow Up [...] Score No qualifying data available. Discharge Disposition [facility] Information Provided To Patient and [facility] Time Spent 15 min Digitally Signed by ARYAN VAZ on 07/21/2022 08:46 AM Digitally Signed by TRACE MATTHEWS MD on 07/21/2022 11:25 AM [facility] HospitalSakcwnlm17-35-7867 Note Date of Service 07/20/22 Reason for Consultation Medical management Referring Physician Dr. Matthews History of Present Illness Patient is a very pleasant 71-year-old female with a past medical history significant for hypertension, obesity, hyperlipidemia, COPD, severe restrictive airway disease follows with [facility], noninsulin-dependent type 2 diabetes, venous insufficiency, goiter, GERD, chronic back pain and hypoxic respiratory failure wearing 2 L oxygen via nasal cannula continuous at home. Patient originally presented to [facility] emergency department on July 11, 2022. Patient sustained a mechanical fall over her walker landing on the left side of her face. [facility]. Patient was noted to have significant cervical spine injury and transferred to [facility] emergency department for further evaluation. Patient was [...] patient's primary care physician covering provider at prison facility. Continue home medication. Blood glucose checks TID. Sliding scale TID ADA diet Glycemic goal <180 Hypokalemia- resolved. Repeat BMP reviewed. Chronic hypoxic respiratory failure. Patient is tolerating oxygen via nasal cannula. 2 L which is baseline. Acute E. coli urinary tract infection. Patient has completed a full course of ceftriaxone Therapy and occasional therapy consult. Recommending patient be discharged to prison facility. Patient is agreeable to discharge to prison facility. Discharge per primary team. At this time patient is medically optimized for discharge. Discussed with my collaborating physician Dr. Levno Tapia This dictation was performed using voice [...] JOANNA TOMLINSON on 07/20/2022 01:37 PM [facility]Ydtawokn19-39-3526 Neurological surgery Progress note Date of Service 07/20/2022 Chief Complaint S/P C2 to C7 decompressive laminectomy, C2 to T2 posterior bone screw/merari fixation (Infinity; Medtronic) with autograft/allograft (Infuse; Medtronic) fusion with navigation and intraoperative SSEP, MEP and EMG mnqcnxdmkf-rnfy-rx day #7. This is a 71-year-old female, who sustained an unstable C6-7 fracture/dislocation status post falling over her walker and landing on the left side of her body and face. She was evaluated in the [facility] emergency department, where she was found [...] MATTHEWS MD on 07/20/2022 10:34 AM [facility]Mlrjirtr73-05-3497 Progress note Date of Service July 19, [...] MATTHEWS MD on 07/19/2022 09:14 AM [facility] HospitalDyfkzmyz10-32-2727 Note Date of Service 07/18/2022 Split/shared visit [...] Platelet: 112 L Neutrophil %: 76.8 H 09/ 06:12 Glucose Level: 130 H Sodium Level: 147 H Potassium Level: 3.4 L BUN: 16.0 Creatinine Lvl (s): 0.55 09/ 07:05 WBC: 7.0 Hgb: 8.6 L Hct: [...] completed, have provided recommendations for skilled rehab. PROTOTYPE DEICER ASSEMBLER to assist with discharge planning. ICU team following for medical and pulmonary management; appreciate their support and assistance incare of patient. Please refer to Dr. Mccallum's addendum for further details. [1] VL Venous US/Doppler Both Legs(for DVT); 07/18/2022 11:00 EDT Digitally Signed by PELON RUIZ on 07/18/2022 04:44 PM [facility] HospitalVubogcnx27-92-2161 Note Date of Service 07/18/2022 Split/shared visit [...] completed, have provided recommendations for skilled rehab. PROTOTYPE DEICER ASSEMBLER to assist with discharge planning. ICU team following for medical and pulmonary management; appreciate their support and assistance incare of patient. Please refer to Dr. Mccallum's addendum for further details. [1] VL Venous US/Doppler Both Legs(for DVT); 07/18/2022 11:00 EDT Digitally Signed by PELON RUIZ on 07/18/2022 04:44 PM [facility] HospitalIwielvxm46-76-2160 Note Date of Service 07/18/2022 Split/shared visit [...] completed, have provided recommendations for skilled rehab. PROTOTYPE DEICER ASSEMBLER to assist with discharge planning. ICU team following for medical and pulmonary management; appreciate their support and assistance incare of patient. Please refer to Dr. Mccallum's addendum for further details. [1] VL Venous US/Doppler Both Legs(for DVT); 07/18/2022 11:00 EDT Digitally Signed by PELON RUIZ on 07/18/2022 04:44 PM [facility] HospitalQhmiplpa27-20-4782 Note Date of Service 07/18/2022 Split/shared visit [...] completed, have provided recommendations for skilled rehab. PROTOTYPE DEICER ASSEMBLER to assist with discharge planning. ICU team following for medical and pulmonary management; appreciate their support and assistance incare of patient. Please refer to Dr. Mccallum's addendum for further details. [1] VL Venous US/Doppler Both Legs(for DVT); 07/18/2022 11:00 EDT Digitally Signed by PELON RUIZ on 07/18/2022 04:44 PM [facility] HospitalIpjnkrel87-81-2508 Note Date of Service 07/18/22 Subjective This [...] VARGAS MD on 07/18/2022 08:05 AM [facility] HospitalOqzvverv56-57-7376 Note Date of Service 07/17/2022 Split/shared visit [...] lower extremities for assessment of possible DVT/SVT. Mammalogist following for medical and pulmonary management; appreciate their support and assistancein care of patient. Please refer to Dr. Mccallum's addendum for further details. Dr Lerner like patient to remain in ICU until Doppler ultrasounds have been completed. Further instructions will be provided at that time. Digitally Signed by PELON RUIZ on 07/17/2022 11:16 AM [facility] HospitalZmeondyw28-16-7837 Note Date of Service 07/17/22 Subjective This [...] VARGAS MD on 07/17/2022 08:39 AM [facility] HospitalCsvrwknc45-21-4859 Note Date of Service 07/17/2022 Split/shared visit [...] lower extremities for assessment of possible DVT/SVT. Mammalogist following for medical and pulmonary management; appreciate their support and assistancein care of patient. Please refer to Dr. Mccallum's addendum for further details. Dr Lerner like patient to remain in ICU until Doppler ultrasounds have been completed. Further instructions will be provided at that time. Digitally Signed by PELON RUIZ on 07/17/2022 11:16 AM [facility] HospitalSyyzaetu86-36-4073 Neurological surgery Progress note Date of Service 07/16/2022 Chief Complaint S/P C2 to C7 decompressive laminectomy, C2 to T2 posterior bone screw/merari fixation (Infinity; Medtronic) with autograft/allograft (Infuse; Medtronic) fusion with navigation and intraoperative SSEP, MEP and EMG ofrhgyppoo-akmi-pp day #3. This is a 71-year-old female, who sustained an unstable C6-7 fracture/dislocation status post falling over her walker and landing on the left side of her body and face. She was evaluated in the [facility] emergency department, where she was found [...] neurosurgery to be notified to further evaluate. Mammalogist following for medical and pulmonary management. Time Spent 15 min Digitally Signed by ARYAN VAZ on 07/16/2022 12:12 PM [facility] HospitalDiwiyfbt60-73-4912 Neurological surgery Progress note Date of Service 07/16/2022 Chief Complaint S/P C2 to C7 decompressive laminectomy, C2 to T2 posterior bone screw/merari fixation (Infinity; Medtronic) with autograft/allograft (Infuse; Medtronic) fusion with navigation and intraoperative SSEP, MEP and EMG ipqcnxexio-idvg-kv day #3. This is a 71-year-old female, who sustained an unstable C6-7 fracture/dislocation status post falling over her walker and landing on the left side of her body and face. She was evaluated in the [facility] emergency department, where she was found [...] neurosurgery to be notified to further evaluate. Mammalogist following for medical and pulmonary management. Time Spent 15 min Digitally Signed by ARYAN VAZ on 07/16/2022 12:12 PM [facility] HospitalApptatdy52-96-1257 Note Date of Service 07/16/2022 Chief Complaint [...] C2C3 so that patient was transferred to [facility] where she was evaluated per neurosurgery [...] MCGRAW MD on 07/16/2022 09:57 AM [facility] HospitalRbklzlfa65-57-2364 Neurological surgery Progress note Date of Service 07/14/2022 Chief Complaint S/P C2 to C7 decompressive laminectomy, C2 to T2 posterior bone screw/merari fixation (Infinity; Medtronic) with autograft/allograft (Infuse; Medtronic) fusion with navigation and intraoperative SSEP, MEP and EMG xygeclihmd-mwvv-sy day #1. This is a 71-year-old female, who sustained an unstable C6-7 fracture/dislocation status post falling over her walker and landing on the left side of her body and face. She was evaluated in the [facility] emergency department, where she was found to have a distraction extension fracture at C6/7 with bilateral pedicle fractures. [facility]. Shewas taken to surgery yesterday for a C2-C7 decompressive laminectomy and C2-T2 posterior bone screw/merari fixation and fusion. She does have facial swelling, and therefore remains intubated. Mammalogist plan to keep patient intubated today and [...] No edema noted Neurological: See HPI Skin: [place], warm, and dry. Psychiatric: Mood stable. Cooperative. [...] fracture of C6 with extension distraction fracture C6-V3yrmjx no change in alignment. XR Chest 1 [...] be extubated tomorrow and can start PT/OT. Mammalogist following for medical and pulmonary management. Time Spent 15 min Digitally Signed by ARYAN VAZ on 07/14/2022 11:59 AM [facility] HospitalXamnrbxx77-43-7935 Neurological surgery Progress note Date of Service 07/15/2022 Chief Complaint S/P C2 to C7 decompressive laminectomy, C2 to T2 posterior bone screw/merari fixation (Infinity; Medtronic) with autograft/allograft (Infuse; Medtronic) fusion with navigation and intraoperative SSEP, MEP and EMG vjkxvqkdef-htgx-ld day #2. This is a 71-year-old female, who sustained an unstable C6-7 fracture/dislocation status post falling over her walker and landing on the left side of her body and face. She was evaluated in the [facility] emergency department, where she was found [...] Intake Enteral Tube Flush: 60.00 Administration Information 1882. Output Surgical Drain, Tube Output: 190.00 Urinary Catheter Output: 1750.00 Stool Count 0.00 Emesis Count 0.00 Total Summary Total Intake 3. Total Output 1940.00 Fluid Balance 3.66 Physical [...] neurosurgery to be notified to further evaluate. Mammalogist following for medical and pulmonary management. Time Spent 15 min Digitally Signed by ARYAN VAZ on 07/15/2022 01:20 PM [facility] HospitalJzcqflzv68-34-5490 Neurological surgery Progress note Date of Service 07/14/2022 Chief Complaint S/P C2 to C7 decompressive laminectomy, C2 to T2 posterior bone screw/merari fixation (Infinity; Medtronic) with autograft/allograft (Infuse; Medtronic) fusion with navigation and intraoperative SSEP, MEP and EMG xydorqsuol-tqek-aj day #1. This is a 71-year-old female, who sustained an unstable C6-7 fracture/dislocation status post falling over her walker and landing on the left side of her body and face. She was evaluated in the [facility] emergency department, where she was found to have a distraction extension fracture at C6/7 with bilateral pedicle fractures. She was [facility] for [facility]surgery evaluation. Shewas taken to surgery yesterday for a C2-C7 decompressive laminectomy and C2-T2 posterior bone screw/merari fixation and fusion. She does have facial swelling, and therefore remains intubated. Mammalogist plan to keep patient intubated today and [...] No edema noted Neurological: See HPI Skin: [place], warm, and dry. Psychiatric: Mood stable. Cooperative. [...] fracture of C6 with extension distraction fracture C6-B6adqnq no change in alignment. XR Chest 1 [...] be extubated tomorrow and can start PT/OT. Mammalogist following for medical and pulmonary management. Time Spent 15 min Digitally Signed by ARYAN VAZ on 07/14/2022 11:59 AM [facility] HospitalXoqzxdjb41-49-5887 Neurological surgery Progress note Date of Service 07/15/2022 Chief Complaint S/P C2 to C7 decompressive laminectomy, C2 to T2 posterior bone screw/merari fixation (Infinity; Medtronic) with autograft/allograft (Infuse; Medtronic) fusion with navigation and intraoperative SSEP, MEP and EMG yvftabqetb-mwer-vm day #2. This is a 71-year-old female, who sustained an unstable C6-7 fracture/dislocation status post falling over her walker and landing on the left side of her body and face. She was evaluated in the [facility] emergency department, where she was found [...] neurosurgery to be notified to further evaluate. Mammalogist following for medical and pulmonary management. Time Spent 15 min Digitally Signed by ARYAN VAZ on 07/15/2022 01:20 PM [facility] HospitalGzugfprv10-98-1628 Note Date of Service 07/15/2022 Subjective 71 [...] C2C3 so that patient was transferred to [facility] where she was evaluated per neurosurgery [...] EDWARDS MD on 07/15/2022 08:56 AM [facility] HospitalGzjafgen02-57-0891 Note ORIGINAL EXAMINATION: ONE XRAY VIEW OF [...] 6:01:36 AM Ordering Provider: OSEI STOVER [facility] HospitalFamqithr05-46-1350 Note ORIGINAL EXAMINATION: ONE XRAY VIEW OF [...] Sign Date: 07/15/2022 6:01:36 AM Ordering Provider: [facility]08-31-2022 Neurological surgery Progress note Date of Service 07/14/2022 Chief Complaint S/P C2 to C7 decompressive laminectomy, C2 to T2 posterior bone screw/merari fixation (Infinity; Medtronic) with autograft/allograft (Infuse; Medtronic) fusion with navigation and intraoperative SSEP, MEP and EMG uhclqjtsri-kecq-mo day #1. This is a 71-year-old female, who sustained an unstable C6-7 fracture/dislocation status post falling over her walker and landing on the left side of her body and face. She was evaluated in the [facility] emergency department, where she was found to have a distraction extension fracture at C6/7 with bilateral pedicle fractures. She was [facility] for Neurosurgery evaluation. Shewas taken to surgery yesterday for a C2-C7 decompressive laminectomy and C2-T2 posterior bone screw/merari fixation and fusion. She does have facial swelling, and therefore remains intubated. Mammalogist plan to keep patient intubated today and [...] No edema noted Neurological: See HPI Skin: [place], warm, and dry. Psychiatric: Mood stable. Cooperative. [...] fracture of C6 with extension distraction fracture C6-N2bytxd no change in alignment. XR Chest 1 View Result Date: July 13, 2022 Verified By: JARETH AMK MD CLINICAL STATEMENT: IMPRESSION: 1. Endotracheal tube [...] be extubated tomorrow and can start PT/OT. Mammalogist following for medical and pulmonary management. Time Spent 15 min Digitally Signed by ARYAN VAZ on 07/14/2022 11:59 AM [facility] HospitalYelsanxl13-95-0638 Note ORIGINAL EXAMINATION: ONE SUPINE XRAY VIEW(S) [...] Sign Date: 07/14/2022 9:41:47 AM Ordering Provider: ANNE-MARIE MCGRAW [facility] HospitalNicxczko36-76-8079 Note ORIGINAL EXAMINATION: ONE SUPINE XRAY VIEW(S) [...] Sign Date: 07/14/2022 9:41:47 AM Ordering Provider: [facility]08-31-2022 Note Date of Service 07/14/2022 Chief [...] C2C3 so that patient was transferred to [facility] where she was evaluated per neurosurgery [...] ANNE-MARIE MCGRAW MD on 07/16/2022 09:53 AM [facility] HospitalPjqodldu74-43-6676 Note ORIGINAL EXAMINATION: CT OF THE CERVICAL [...] Sign Date: 07/14/2022 6:52:00 AM Ordering Provider: [facility]08-31-2022 Note ORIGINAL EXAMINATION: ONE XRAY VIEW [...] Date: 07/14/2022 6:00:18 AM Ordering Provider: [place] [facility]08-31-2022 Note ORIGINAL EXAMINATION: ONE XRAY VIEW [...] by: Eder Clark MD Preliminary Report By: Mairana Lozano Electronically signed By Eder Clark MD Dictated Date: 07/14/2022 5:52:21 AM Prelim Date: 07/14/2022 5:56:35 AM Sign Date: 07/14/2022 6:00:18 AM Ordering Provider: [place] [facility]08-31-2022 Note ORIGINAL EXAMINATION: CT OF THE CERVICAL [...] no change in alignment. Interpreted by: Eder lCark MD Preliminary Report By: Eder Clark MD Electronically signed By Eder Clark MD Dictated Date: 07/14/2022 6:43:56 AM Prelim Date: 07/14/2022 6:52:00 AM Sign Date: 07/14/2022 6:52:00 AM Ordering Provider: [facility]08-31-2022 Note ORIGINAL EXAMINATION: SPOT FLUOROSCOPIC IMAGES [...] Sign Date: 07/14/2022 4:26:28 AM Ordering Provider: [facility]08-30-2022 Note ORIGINAL EXAMINATION: ONE XRAY VIEW OF [...] Date: 07/13/2022 9:06:27 PM Ordering Provider: [place] [facility]08-30-2022 Note ORIGINAL EXAMINATION: ONE XRAY VIEW OF [...] 07/13/2022 9:06:27 PM Ordering Provider: [place] [facility] HospitalQbidvtdw24-15-0021 Note ORIGINAL EXAMINATION: SPOT FLUOROSCOPIC IMAGES 07/13/2022 [...] Date: 07/14/2022 4:26:28 AM Ordering Provider: MARYCHUY LERNERBarnesville HospitalVnyawsrs33-92-6087 Note Date of Service 07/13/2022 Split/shared visit with Dr. Jaswant MD Neurosurgical CC: Unstable C6-7 fracture or dislocation post fall. C2-C3 stenosis with cervical myelopathy Patient is a 71-year-old female who was brought to [facility] via EMS after sustaining a fall over her walker landing on her left side and face on 07/11/2022. 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 Patient transferred to [place] ED. Stat MRI completed and patient admitted [...] with weakness of the left tricep/bicep and anesthesia tech. Negative Pierre's. She does have 3 beats [...] pain post fall. She was taken to [facility] by EMS found to have cervical spine injury and transferred to [place] ED. Stat MRI completed and patient was [...] NITA MADERA on 07/13/2022 05:50 AM [facility] HospitalOpmncazm02-03-4965 Note ORIGINAL EXAMINATION: TWO XRAY VIEWS OF [...] Date: 07/13/2022 3:47:11 PM Ordering Provider: MARYCHUY LERNER [facility] HospitalRdhgsfhd93-92-4750 Note ORIGINAL EXAMINATION: TWO XRAY VIEWS OF [...] Sign Date: 07/13/2022 3:47:11 PM Ordering Provider: [facility]08-30-2022 Anesthesiology Consult note Patient: POLI RAMIREZ [...] a prior cardiac history including a previous SC, however, she has not had any interventions, [...] Constipation NS 1,000 mL: 50 mL/hr, Intravenous [place] 325- 5 mg oral tablet: 1 tab(s), [...] list: Medical Chronic anemia / SNOMED CT 962503776 / Confirmed Chronic back pain / SNOMED CT 522072903 / Confirmed COPD / SNOMED CT 72006049 / Confirmed Hypertension, essential / SNOMED CT 08669035 / Confirmed GERD (gastroesophageal reflux disease) / SNOMED CT [id number] / Confirmed Goiter / SNOMED CT 9773237 / Confirmed Hyperlipidemia / SNOMED CT 36236375 / Confirmed Incontinence of urine / SNOMED CT 0715840200 / Confirmed, Active Problems (30) Anemia Arthritis [...] incontinence Histories Past Medical History: Active COPD (98378715) Chronic back pain (992657850) Resolved H/O hypercholesterolemia (8753277361): Resolved. Hypernatremia (7264455292): Resolved. Family History: Heart disease Father Brother Arthritis Daughter Stroke Mother Cancer Sister HTN - Hypertension Mother GERD (gastroesophageal reflux disease) Daughter Diverticulitis Daughter Procedure history: None (955836808). Appendectomy (289442165). Comments: 08/11/2017 12:13 SHAMA BOLTON left water taken off Tubal ligation (472861529). Cholecystectomy (81618954). Arthroscopic knee operation (5498520409). Comments: 12/24/2019 13:16 SHAMA Gabriel right Lumpectomy of breast (6497578469). Comments: 12/24/2019 13:16 SHAMA Gabriel left Phacoemulsification of cataract with intraocular lens implantation (2668491381). Comments: 12/24/2019 13:16 SHAMA Gabriel both eyes Colonoscopy (305957199). Esophagogastroduodenoscopy (017994994). Cardiac catheter (3454261773). Comments: 12/24/2019 13:17 SHAMA Gabriel years ago [...] kg (Modified) Weight Lbs 217.1 lb (Modified) [place] Body Weight 56.91 kg BSA Admission 2.05 [...] On and Limits Checked Nail Bed Color [place] Capillary Refill < 2 seconds Heart Sounds [...] grimaces Skin Symptoms Bruising All Extremity Description [place] Skin Temperature Warm Temperature All Extremities Warm Skin Description [place], Normal for ethnicity Skin Integrity Not intact Skin Turgor Non-Elastic Mucous Membrane Color [place] Mucous Membrane Description Moist Nose Anterior Skin [...] Zeke Obeys simple commands Best Verbal Response Erhard Oriented Zeke Coma Score 14 YANICK Yes [...] Appropriate, Calm, Cooperative Orientation Oriented x 4 Training Professional On Yes Patient Dressed In Hospital gown [...] On and Limits Checked Nail Bed Color [place] Capillary Refill < 2 seconds Heart Sounds ICU S1S2 Heart Rhythm Regular Dorsalis Pedis Pulse, Left 1+ Thready Dorsalis Pedis Pulse, Right 1+ Thready Posttibial Pulse, Left 1+ Thready Posttibial Pulse, Right 1+ Thready Radial Pulse, Left 2+ Normal Radial Pulse, Right 2+ Normal Edema Generalized None Cardiac Rhythm Sinus tachycardia Monitoring Lead II, V1/MCL1 OR Interval 0.16 second(s) QRS Duration 0.09 second(s) [...] grimaces Skin Symptoms Bruising All Extremity Description [place] Skin Temperature Warm Temperature All Extremities Warm Skin Description [place], Normal for ethnicity Skin Integrity Not intact Skin Turgor Non-Elastic Mucous Membrane Color [place] Mucous Membrane Description Moist Nose Anterior Skin [...] Zeke Obeys simple commands Best Verbal Response Erhard Oriented Zeke Coma Score 14 YANICK Yes [...] On and Limits Checked Nail Bed Color [place] Capillary Refill < 2 seconds Heart Sounds [...] grimaces Skin Symptoms Bruising All Extremity Description [place] Skin Temperature Warm Temperature All Extremities Warm Skin Description [place], Normal for ethnicity Skin Integrity Not intact Skin Turgor Elastic Mucous Membrane Color [place] Mucous Membrane Description Moist Nose Anterior Skin [...] Arousable with minimal stimulation Eye Opening Response Erhard To voice Best Motor Response Zeke Obeys simple commands Best Verbal Response Zeke Oriented Erhard Coma Score 14 YANICK Yes Left Pupil [...] Mode Order Detail Bed Nurse and Monitor Solar Installation Foreman Details Form Solar Installation Foreman Details Form 07/13/2022 0:40 EDT Notify date/time [...] On and Limits Checked Nail Bed Color [place] Capillary Refill < 2 seconds Heart Sounds ICU S1S2 Heart Rhythm Regular Dorsalis Pedis Pulse, Left 1+ Thready Dorsalis Pedis Pulse, Right 1+ Thready Posttibial Pulse, Left 1+ Thready Posttibial Pulse, Right 1+ Thready Radial Pulse, Left 2+ Normal Radial Pulse, Right 2+ Normal Edema Generalized None Cardiac Rhythm Sinus tachycardia Monitoring Lead II, V1/MCL1 OR Interval 0.13 second(s) QRS Duration 0.08 second(s) [...] grimaces Skin Symptoms Bruising All Extremity Description [place] Skin Temperature Warm Temperature All Extremities Warm Skin Description [place], Normal for ethnicity Skin Integrity Not intact Skin Turgor Non-Elastic Mucous Membrane Color [place] Mucous Membrane Description Moist Nose Anterior Skin [...] Arousable with minimal stimulation Eye Opening Response Erhard To voice Best Motor Response Erhard Obeys simple commands Best Verbal Response Erhard Oriented Zeke Coma Score 14 YANICK Yes [...] Calm, Cooperative Orientation Oriented x 4 [facility] HospitalKmtyuuqy68-78-1682 Note Date of Service 07/13/2022 Split/shared visit with Dr. Jaswant MD Neurosurgical CC: Unstable C6-7 fracture or dislocation post fall. C2-C3 stenosis with cervical myelopathy Patient is a 71-year-old female who was brought to [facility] via EMS after sustaining a fall over her walker landing on her left side and face on 07/11/2022. 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 Patient transferred to [place] ED. Stat MRI completed and patient admitted [...] with weakness of the left tricep/bicep and anesthesia tech. Negative Pierre's. She does have 3 beats [...] O2 yesterday after sitting up with Dr. Matthwes for lateral cervical spine x-rays. Heart rate [...] pain post fall. She was taken to [facility] by EMS found to have cervical spine injury and transferred to [place] ED. Stat MRI completed and patient was [...] NITA MADERA on 07/13/2022 05:50 AM [facility] HospitalLhofhrzr46-08-5346 Anesthesiology Consult note* ALEJANDRA HERNANDEZ MD: PERFORM, SIGN, VERIFY Event Display: Anesthesiology Consultation Authored Date: [id number] Patient: POLI RAMIREZ Age: 71 years Sex: [...] a prior cardiac history including a previous SC, however, she has not had any interventions, [...] Constipation NS 1,000 mL: 50 mL/hr, Intravenous [place] 325- 5 mg oral tablet: 1 tab(s), [...] list: Medical Chronic anemia / SNOMED CT 118015329 / Confirmed Chronic back pain / SNOMED CT 321189846 / Confirmed COPD / SNOMED CT 66501676 / Confirmed Hypertension, essential / SNOMED CT 53058006 / Confirmed GERD (gastroesophageal reflux disease) / SNOMED CT [id number] / Confirmed Goiter / SNOMED CT 7473003 / Confirmed Hyperlipidemia / SNOMED CT 47802481 / Confirmed Incontinence of urine / SNOMED CT [id number] / Confirmed, Active Problems (30) Anemia Arthritis [...] incontinence Histories Past Medical History: Active COPD (35818748) Chronic back pain (870818824) Resolved H/O hypercholesterolemia (2397968095): Resolved. Hypernatremia (8802653892): Resolved. Family History: Heart disease Father Brother Arthritis Daughter Stroke Mother Cancer Sister HTN - Hypertension Mother GERD (gastroesophageal reflux disease) Daughter Diverticulitis Daughter Procedure history: None (219703496). Appendectomy (144137112). Comments: 08/11/2017 12:13 SHAMA BOLTON left water taken off Tubal ligation (188080544). Cholecystectomy (44601401). Arthroscopic knee operation (2559002549). Comments: 12/24/2019 13:16 SHAMA Gabriel right Lumpectomy of breast (0529432200). Comments: 12/24/2019 13:16 SHAMA Gabriel left Phacoemulsification of cataract with intraocular lens implantation ([id number]). Comments: 12/24/2019 13:16 SHAMA Gabriel both eyes Colonoscopy (002294970). Esophagogastroduodenoscopy (614754943). Cardiac catheter (4392816294). Comments: 12/24/2019 13:17 SHAMA Gabriel years ago [...] 18:06 EDT Apical Heart Rate 114 bpm [place] 07/12/2022 18:01 EDT Heart Rate Monitored 113 [...] (JUL 13 05:25) SBPH 150mmHg (JUL 13 05:) DBP78 mmHg (JUL 13 05:25) BMI36.25 (JUL 12 11:30) Measurements from flowsheet : Measurements 07/12/2022 11:30 EDT Height 165 cm (Modified) Height in inches 65 inch(es) (Modified) Admission Weight 98.7 kg (Modified) Weight Lbs 217.1 lb (Modified) [place] Body Weight 56.91 kg BSA Admission 2.05 [...] On and Limits Checked Nail Bed Color [place] Capillary Refill < 2 seconds Heart Sounds [...] grimaces Skin Symptoms Bruising All Extremity Description [place] Skin Temperature Warm Temperature All Extremities Warm Skin Description [place], Normal for ethnicity Skin Integrity Not intact Skin Turgor Non-Elastic Mucous Membrane Color [place] Mucous Membrane Description Moist Nose Anterior Skin [...] Arousable with minimal stimulation Eye Opening Response Erhard To voice Best Motor Response Zeke Obeys simple commands Best Verbal Response Erhard Oriented Zeke Coma Score 14 YANICK Yes [...] Appropriate, Calm, Cooperative Orientation Oriented x 4 Training Professional On Yes Patient Dressed In Hospital gown [...] On and Limits Checked Nail Bed Color [place] Capillary Refill < 2 seconds Heart Sounds ICU S1S2 Heart Rhythm Regular Dorsalis Pedis Pulse, Left 1+ Thready Dorsalis Pedis Pulse, Right 1+ Thready Posttibial Pulse, Left 1+ Thready Posttibial Pulse, Right 1+ Thready Radial Pulse, Left 2+ Normal Radial Pulse, Right 2+ Normal Edema Generalized None Cardiac Rhythm Sinus tachycardia Monitoring Lead II, V1/MCL1 OR Interval 0.16 second(s) QRS Duration 0.09 second(s) [...] grimaces Skin Symptoms Bruising All Extremity Description [place] Skin Temperature Warm Temperature All Extremities Warm Skin Description [place], Normal for ethnicity Skin Integrity Not intact Skin Turgor Non-Elastic Mucous Membrane Color [place] Mucous Membrane Description Moist Nose Anterior Skin [...] Response Zeke To voice Best Motor Response Erhard Obeys simple commands Best Verbal Response Erhard Oriented Zeke Coma Score 14 YANICK Yes [...] On and Limits Checked Nail Bed Color [place] Capillary Refill < 2 seconds Heart Sounds [...] grimaces Skin Symptoms Bruising All Extremity Description [place] Skin Temperature Warm Temperature All Extremities Warm Skin Description [place], Normal for ethnicity Skin Integrity Not intact Skin Turgor Elastic Mucous Membrane Color [place] Mucous Membrane Description Moist Nose Anterior Skin [...] Arousable with minimal stimulation Eye Opening Response Erhard To voice Best Motor Response Erhard Obeys simple commands Best Verbal Response Zeke [...] Mode Order Detail Bed Nurse and Monitor Solar Installation Foreman Details Form Solar Installation Foreman Details Form 07/13/2022 0:40 EDT Notify date/time [...] On and Limits Checked Nail Bed Color [place] Capillary Refill < 2 seconds Heart Sounds ICU S1S2 Heart Rhythm Regular Dorsalis Pedis Pulse, Left 1+ Thready Dorsalis Pedis Pulse, Right 1+ Thready Posttibial Pulse, Left 1+ Thready Posttibial Pulse, Right 1+ Thready Radial Pulse, Left 2+ Normal Radial Pulse, Right 2+ Normal Edema Generalized None Cardiac Rhythm Sinus tachycardia Monitoring Lead II, V1/MCL1 OR Interval 0.13 second(s) QRS Duration 0.08 second(s) [...] grimaces Skin Symptoms Bruising All Extremity Description [place] Skin Temperature Warm Temperature All Extremities Warm Skin Description [place], Normal for ethnicity Skin Integrity Not intact Skin Turgor Non-Elastic Mucous Membrane Color [place] Mucous Membrane Description Moist Nose Anterior Skin [...] Response Zeke To voice Best Motor Response Erhard Obeys simple commands Best Verbal Response Zeke Oriented Erhard Coma Score 14 YANICK Yes Left Pupil [...] mL 07/12/2022 22:59 EDT IV Present Present Training Professional On Yes Patient Dressed In Hospital gown [...] On and Limits Checked Nail Bed Color [place] Capillary Refill < 2 seconds Heart Sounds [...] grimaces Skin Symptoms Bruising All Extremity Description [place] Skin Temperature Warm Temperature All Extremities Warm Skin Description [place], Normal for ethnicity Skin Integrity Not intact Skin Turgor Elastic Mucous Membrane Color [place] Mucous Membrane Description Moist Nose Anterior Skin [...] Zeke Obeys simple commands Best Verbal Response Erhard Oriented Erhard Coma Score 14 YANICK Yes Left Pupil [...] Type 0-10 Pain scale Nail Bed Color [place] Capillary Refill < 2 seconds Dorsalis Pedis [...] grimaces Skin Symptoms Bruising All Extremity Description [place] Skin Temperature Warm Temperature All Extremities Warm Skin Description [place], Normal for ethnicity Skin Integrity Not intact Skin Turgor Elastic Mucous Membrane Color [place] Mucous Membrane Description Moist Nose Anterior Skin [...] simple commands Best Verbal Response Zeke Oriented Erhard Coma Score 14 YANICK Yes Left Pupil [...] Type 0-10 Pain scale Nail Bed Color [place] Capillary Refill < 2 seconds Heart Rhythm [...] On Skin Symptoms Bruising All Extremity Description [place] Skin Temperature Warm Temperature All Extremities Warm Skin Description [place], Normal for ethnicity Skin Integrity Not intact Skin Turgor Elastic Mucous Membrane Color [place] Mucous Membrane Description Moist Nose Anterior Skin [...] Response Zeke To voice Best Motor Response Erhard Obeys simple commands Best Verbal Response Zeke Oriented Erhard Coma Score 14 YANICK Yes Left Pupil [...] Mode Order Detail Bed Nurse and Monitor Solar Installation Foreman Details Form Solar Installation Foreman Details Form 07/12/2022 15:18 EDT SN - [...] Type 0-10 Pain scale Nail Bed Color [place] Capillary Refill < 2 seconds Heart Rhythm Regular Dorsalis Pedis Pulse, Left 1+ Thready Dorsalis Pedis Pulse, Right 1+ Thready Posttibial Pulse, Left 1+ Thready Posttibial Pulse, Right 1+ Thready Radial Pulse, Left 2+ Normal Radial Pulse, Right 2+ Normal Edema Generalized None Cardiac Rhythm Bundle branch block Cardiac Rhythm Sinus tachycardia Monitoring Lead II OR Interval 0.13 second(s) QRS Duration 0.12 second(s) [...] On Skin Symptoms Bruising All Extremity Description [place] Skin Temperature Warm Temperature All Extremities Warm Skin Description [place], Normal for ethnicity Skin Integrity Not intact Skin Turgor Elastic Mucous Membrane Color [place] Mucous Membrane Description Moist Nose Anterior Skin [...] simple commands Best Verbal Response Zeke Oriented Erhard Coma Score 15 YANICK Yes Left Pupil [...] Type 0-10 Pain scale Nail Bed Color [place] Capillary Refill < 2 seconds Heart Rhythm [...] On Skin Symptoms Bruising All Extremity Description [place] Skin Temperature Warm Temperature All Extremities Warm Skin Description [place], Normal for ethnicity Skin Integrity Not intact Skin Turgor Elastic Mucous Membrane Color [place] Mucous Membrane Description Moist Continuous IV Infusions [...] Opening Response Zeke Spontaneously Best Motor Response Erhard Obeys simple commands Best Verbal Response Zeke Oriented Erhard Coma Score 15 YANICK Yes Left Pupil [...] Person #2 We May Share PHI Jocy [phone] Designated Person #2 Relationship Daughter Privacy Restrictions Requested None (Modified) Height 165 cm (Modified) Height in inches 65 inch(es) (Modified) Admission Weight 98.7 kg (Modified) Weight Lbs 217.1 lb (Modified) [place] Body Weight 56.91 kg BSA Admission 2.05 [...] Safety Brochure Information Reviewed Yes (Modified) Vaishali [place] Video Viewed Yes (Modified) Barriers to Learning None evident (Modified) Teaching Method Explanation (Modified) Teaching Evaluation Verbalizes/Nonverbally indicates understanding (Modified) Preferred Written Language Luxembourger (Modified) Preferred Spoken Language Luxembourger (Modified) Information Given by Patient (Modified) Patient's [...] Type 0-10 Pain scale Nail Bed Color [place] Capillary Refill < 2 seconds Heart Sounds ICU S1S2 Heart Rhythm Regular Dorsalis Pedis Pulse, Left 1+ Thready Dorsalis Pedis Pulse, Right 1+ Thready Posttibial Pulse, Left 1+ Thready Posttibial Pulse, Right 1+ Thready Edema Generalized None Cardiac Rhythm Bundle branch block Cardiac Rhythm Sinus tachycardia Monitoring Lead II OR Interval 0.14 second(s) QRS Duration 0.12 second(s) [...] On Skin Symptoms Bruising All Extremity Description [place] Skin Temperature Warm Temperature All Extremities Warm Skin Description [place], Normal for ethnicity Skin Integrity Not intact Skin Turgor Elastic Mucous Membrane Color [place] Mucous Membrane Description Moist Nose Anterior Skin [...] Type 0-10 Pain scale Nail Bed Color [place] Capillary Refill < 2 seconds Dorsalis Pedis [...] On Skin Symptoms Bruising All Extremity Description [place] Skin Temperature Warm Temperature All Extremities Warm Skin Description [place], Normal for ethnicity Skin Integrity Not intact Skin Turgor Elastic Mucous Membrane Color [place] Mucous Membrane Description Moist Nose Anterior Wound [...] Mode Order Detail Bed Nurse and Monitor Solar Installation Foreman Details Form Solar Installation Foreman Details Form 07/12/2022 8:15 EDT Magnesium Lvl [...] Type 0-10 Pain scale Nail Bed Color [place] Capillary Refill < 2 seconds Heart Sounds ICU S1S2 Heart Rhythm Regular Dorsalis Pedis Pulse, Left 1+ Thready Dorsalis Pedis Pulse, Right 1+ Thready Posttibial Pulse, Left 1+ Thready Posttibial Pulse, Right 1+ Thready Radial Pulse, Left 2+ Normal Radial Pulse, Right 2+ Normal Edema Generalized None Cardiac Rhythm Sinus tachycardia, Bundle branch block Monitoring Lead II, V1/MCL1 OR Interval 0.14 second(s) QRS Duration 0.13 second(s) [...] On Skin Symptoms Bruising All Extremity Description [place] Skin Temperature Warm Temperature All Extremities Warm Skin Description [place], Normal for ethnicity Skin Integrity Not intact Skin Turgor Elastic Mucous Membrane Color [place] Mucous Membrane Description Moist Nose Anterior Skin [...] Arousable with minimal stimulation Eye Opening Response Erhard Spontaneously Best Motor Response Zeke Obeys simple commands Best Verbal Response Erhard Oriented Erhard Coma Score 15 YANICK Yes Left Pupil [...] On and Limits Checked Nail Bed Color [place] Capillary Refill < 2 seconds Heart Sounds [...] On Skin Symptoms Bruising All Extremity Description [place] Skin Temperature Warm Skin Description [place], Normal for ethnicity Skin Integrity Not intact Skin Turgor Elastic Mucous Membrane Color [place] Mucous Membrane Description Moist Nose Anterior Skin Abnormality Type: Abrasion Wound Status: No complications Neurological Language Able to speak clearly, Follows simple commands Neurological Symptoms Numbness Gait Unable to assess Extremity Movement Equal Swallowing Difficulty None Characteristics of Communication Appropriate Characteristics of Speech Clear Facial Symmetry Symmetric Level of Consciousness Arousable with minimal stimulation Eye Opening Response Erhard Spontaneously Best Motor Response Zeke Obeys simple commands Best Verbal Response Erhard Oriented Zeke Coma Score 15 YANICK Yes [...] On and Limits Checked Nail Bed Color [place] Capillary Refill < 2 seconds Heart Sounds [...] On Skin Symptoms Bruising All Extremity Description [place] Skin Temperature Warm Temperature All Extremities Warm Skin Description [place], Dry Skin Integrity Not intact Skin Turgor Elastic Mucous Membrane Color [place] Mucous Membrane Description Moist Nose Anterior Wound [...] simple commands Best Verbal Response Zeke Oriented Erhard Coma Score 14 YANICK Yes Left Pupil [...] Mode Order Detail Bed Nurse and Monitor Solar Installation Foreman Details Form Solar Installation Foreman Details Form 07/12/2022 0:25 EDT Mechanical VTE Prophylaxis Education Not Done: Task Duplication (Not Done) Sequential Compression Device Form Not Done (Not Done) 07/12/2022 0:08 EDT Primary Pain Intensity 7 HYDROmorphone 0.5 mg mg ondansetron 4 mg mg . Assessment and Plan [place] [employer] (ASA) physical status classification: [...] and equal. Left tricep 2.5/5, bicep 3.5/5, anesthesia tech 4/5, bilateral intrinsics are strong. Negative Pierre's. [...] pain post fall. She was taken to [facility] by EMS found to have cervical spine injury and transferred to [place] ED. Stat MRI completed and patient was [...] NITA MADERA on 07/12/2022 05:53 AM [id number] care medicine Consult note Date of [...] C2C3 so that patient was transferred to [facility] where she was evaluated per neurosurgery [...] 17 gram(s)= 15 mL, Oral, qDay, PRN [place] 325- 5 mg oral tablet, 1 tab(s), [...] EDWARDS MD on 07/12/2022 09:57 AM [id number] Note ORIGINAL EXAMINATION: ONE XRAY VIEW OF [...] Sign Date: 07/12/2022 8:41:07 AM Ordering Provider: [facility]08-29-2022 Note Date of Service 07/12/2022 Split/shared [...] and equal. Left tricep 2.5/5, bicep 3.5/5, anesthesia tech 4/5, bilateral intrinsics are strong. Negative Pierre's. [...] pain post fall. She was taken to [facility] by EMS found to have cervical spine injury and transferred to [place] ED. Stat MRI completed and patient was [...] NITA MADERA on 07/12/2022 05:53 AM [id number] Note ORIGINAL EXAMINATION: ONE XRAY VIEW OF [...] Date: 07/12/2022 8:41:07 AM Ordering Provider: TEQUILA [facility]08-29-2022 Note ORIGINAL EXAMINATION: ONE XRAY [...] Sign Date: 07/12/2022 7:52:46 AM Ordering Provider: [facility]08-29-2022 Note ORIGINAL EXAMINATION: ONE XRAY [...] Sign Date: 07/12/2022 7:52:46 AM Ordering Provider: [facility]08-29-2022 Note Date of Service 07/12/2022 Split/shared [...] and equal. Left tricep 2.5/5, bicep 3.5/5, anesthesia tech 4/5, bilateral intrinsics are strong. Negative Pierre's. [...] pain post fall. She was taken to [facility] by EMS found to have cervical spine injury and transferred to [place] ED. Stat MRI completed and patient was [...] NITA MADERA on 07/12/2022 05:53 AM [id number] Note ORIGINAL EXAMINATION: ONE XRAY VIEW OF [...] Sign Date: 07/11/2022 7:30:42 PM Ordering Provider: [facility]08-28-2022 Note ORIGINAL EXAMINATION: ONE XRAY VIEW OF [...] Sign Date: 07/11/2022 7:28:52 PM Ordering Provider: [facility]08-28-2022 History and physical note Date of Service 07/11/2022 Chief Complaint Fall, neck pain History of Present Illness Mrs. Ramirez is a 71-year-old female with a past medical history of hypertension, obesity, hyperlipidemia, COPD, severe restrictive airway disease follows with [place] [facility], noninsulin-dependent type 2 diabetes, venous insufficiency, [...] precautions have been maintained. Patient taken to [facility]. She was noted to have a significant cervical spine injury and transferred to [place] ED for further evaluation and trauma work-up. [...] strength noted to be unequal. Bicep/tricep and anesthesia tech 3.5/5 on the left, strong on the [...] pain post fall. She was taken to [facility] by EMS found to have cervical spine injury and transferred to [place] ED. Stat MRI completed and patient was [...] completed regarding recommendations for treatment Consult to metallurgical or materials technician for assistance with medical management and surgical [...] NITA MADERA on 07/11/2022 06:29 PM [id number] Note ORIGINAL EXAMINATION: ONE XRAY VIEW OF [...] Date: 07/11/2022 7:30:42 PM Ordering Provider: NITA [facility]08-28-2022 Evaluation + Plan noteExtracted from: Title:History and Physical Author:SHIRIN MADERA STEAM STATION SUPERVISOR-GRAIN OILSEED OR PASTURE FARM WORKER Date:07/11/22 71-year-old female sustained a unwitnessed mechanical fall over her walker landing on left side and face 07/11/2022. Denies LOC. Developed immediate neck pain post fall. She was taken to [facility] by EMS found to have cervical spine injury and transferred to [place] ED. Stat MRI completed and patient was [...] completed regarding recommendations for treatment Consult to metallurgical or materials technician for assistance with medical management and surgical clearance. Discussed case with ICU nurse practitioner Future Appointments Appointment Date:08/10/2022 11:00:00 AM Scheduled Provider: Location:[facility] Appointment Type:NS Post Op Future Scheduled Tests [...] 1:13:40 PM Ordering Provider: FABIANO MARTIN [id number] Note ORIGINAL HISTORY: Pain, fall COMPARISON: No [...] 07/11/2022 9:14:35 AM Ordering Provider: MARIANA RAMOS [facility]08-28-2022 Note ORIGINAL HISTORY: Neck pain, fall this [...] Sign Date: 07/11/2022 9:13:21 AM Ordering Provider: [address]28-2022 Note ORIGINAL HISTORY: Pain COMPARISON: No [...] Sign Date: 07/11/2022 9:03:50 AM Ordering Provider: [address]28-2022 Note ORIGINAL HISTORY: Fall COMPARISON: 04 [...] Sign Date: 07/11/2022 9:01:52 AM Ordering Provider: [address]28-2022 Note ORIGINAL HISTORY: Neck pain, fall [...] Sign Date: 07/11/2022 9:13:21 AM Ordering Provider: [facility]08-28-2022 Note ORIGINAL HISTORY: Pain COMPARISON: No [...] Sign Date: 07/11/2022 9:03:50 AM Ordering Provider: [facility]08-28-2022 Note ORIGINAL HISTORY: Pain, fall COMPARISON: No [...] Sign Date: 07/11/2022 9:14:35 AM Ordering Provider: [facility]08-28-2022 Note ORIGINAL HISTORY: Fall COMPARISON: 04 [...] Sign Date: 07/11/2022 9:01:52 AM Ordering Provider: [facility]02-23-2022 Evaluation + Plan note Future Scheduled Tests Laboratory* A1C Hemoglobin 01/06/22 * Lipid Profile 01/06/22 * Complete Metabolic Panel 01/06/22 [facility] 01-21-2022 Hospital Discharge instructions Patient Education 12/04/2021 [...] keep having episodes of high blood sugar. [phone] [employer]. [address] [place] [address], [place] [address]. All rights reserved. This information is not [...] in vomit, stools (black or red color) [phone] [employer]. [address] [place] [address]. All rights reserved. This information is not intended as a substitute for professional medical care. Always follow yourhealthcare professional's instructions. Follow Up Care 12/04/2021 08:14:09 [facility] Address: [phone] When:2-4 days [facility] 11-02-2021 Hospital Discharge instructions Patient Education 09/15/2021 [...] meats and fish, and low-fat dairy products. [phone] [employer]. [address] [place] [address]. All rights reserved. This information is not intended as a substitute for professional medical care. Always follow yourhealthcare professional's instructions. 09/15/2021 20:06:55 Medical Screening Exam, [...] come back to this facility in person. [phone] [employer]. [address] [place] [address]. All rights reserved. This information is not intended as a substitute for professional medical care. Always follow yourhealthcare professional's instructions. Follow Up Care 09/15/2021 18:07:55 With:BARBER CARLISLE Address:Unknown When:Within 1 Day(s) Comments:Follow-up as scheduled with your doctor tomorrow.Continue all routine medications.Return to the ED if symptoms worsen. [facility] evaluation + Plan note Future Appointments Appointment Date:09/16/2021 01:30:00 PM Scheduled Provider:BARBER CARLISLE Location:[facility]mal[facility] + Plan note Future Appointments Appointment Date:03/22/2022 02:00:00 PM Scheduled Provider:BARBER CARLISLE Location:[facility] Appointment Type:[facility] evaluation + Plan note Future Appointments Appointment Date:07/27/2022 09:30:00 AM Scheduled Provider: Location:[facility] Appointment Type:NS Post Op Future Scheduled Tests Laboratory* A1C Hemoglobin 2 * Lipid Profile 01/06/22 * Complete Metabolic Panel 01/06/22 [facility] evaluation + Plan note Future Appointments Appointment Date:08/12/2022 08:30:00 AM Scheduled Provider: Location:[facility] Appointment Type:NS Post Op Future Scheduled Tests Laboratory* A1C Hemoglobin 01/06/ * Lipid Profile 01/06/22 * Complete Metabolic Panel 01/06/22 Radiology* XR Spine Cervical AP/LAT 07/27/22 [facility] evaluation + Plan note Future Appointments Appointment Date:09/09/2022 10:00:00 AM Scheduled Provider: Location:[facility] Appointment Type:NS Post Op Future Scheduled Tests Laboratory* A1C Hemoglobin 2/22 * Lipid Profile 01/06/22 * Complete Metabolic Panel 01/06/22 [facility] evaluation + Plan note Future Appointments Appointment Date:10/05/2022 01:30:00 PM Scheduled Provider:TRACE MATTHEWS MD Location:[facility] Appointment Type:NS Post Op Future Scheduled Tests Laboratory* A1C Hemoglobin 2/22 * Lipid Profile 01/06/ * Complete Metabolic Panel 01/06/22 Radiology* XR Spine Thoracic 2 Views 09/09/22 * XR Spine Cervical AP/LAT/Flex/Ext 09/09/22 [facility] evaluation + Plan note Future Appointments Appointment Date:10/26/2022 03:00:00 PM Scheduled Provider: Location:[facility] Appointment Type:CT Spine Cervical w/o Contrast Appointment Date:11/04/2022 02:15:00 PM Scheduled Provider:TRACE MATTHEWS MD Location:[facility] Appointment Type:Telephone Future Scheduled Tests Laboratory* A1C Hemoglobin 01/06/22 * Lipid Profile 01/06/22 * Complete Metabolic Panel 01/06/22 Radiology* CT Spine Cervical w/o Contrast 10/26/22 [facility] evaluation + Plan note Future Appointments Appointment Date:11/04/2022 02:15:00 PM Scheduled Provider:TRACE MATTHEWS MD Location:[facility] Appointment Type:Telephone Future Scheduled Tests Laboratory* A1C Hemoglobin 01/06/22 * Lipid Profile 01/06/22 * Complete Metabolic Panel 01/06/22 [facility] evaluation + Plan note Future Appointments Appointment Date:08/19/2023 02:30:00 PM Scheduled Provider: Location:[facility] Appointment Type:MRI Pancreas Future Scheduled Tests Radiology* MRI Pancreas 08/19/23 [facility] evaluation noteNo assessment information available [facility] Work Phone: evaluation note* Diagnosis Onset Date Resolution Status Iron deficiency anemia acute Vitamin B12 deficiency acute Thrombocytopenia [facility] Work Phone: evaluation note* Diagnosis Onset Date Resolution Status Hyperglycemia acute Metabolic encephalopathy acu te Acute on chronic respiratory failure with hypoxia and hypercapnia chronic COPD (chronic obstructive pulmonary disease) [facility] Work Phone: evaluation note* Diagnosis Onset Date Resolution Status Anemia acute Cardiomyopathy acute Congestive heart failure (CHF) acute Hyperglycemia acute Lower extremity edema acute Lung nodules acute Metabolic encephalopathy acu te On mechanically assisted ventilation acute Pneumonia acute Respiratory disorder with ventilator dependence acute Acute on chronic respiratory failure with hypoxia and hypercapnia chronic COPD (chronic obstructive pulmonary disease) [facility] Work Phone: Evaluation note* Diagnosis Onset Date Resolution Status Iron deficiency anemia chron ic Thrombocytopenia chronic Iron deficiency anemia chron ic Thrombocytopenia chronic Anemia acute Congestive heart failure (CHF) acute COPD (chronic obstructive pulmonary disease) chronic Lung nodules chronic Metabolic encephalopathy res olved Pneumonia resolved Breast nodule acute Neck mass acute Iron deficiency anemia chron ic Lung nodules chronic Thrombocytopenia chronic [facility] Work Phone: Evaluation note* Diagnosis Onset Date Resolution Status Iron deficiency anemia chron ic Thrombocytopenia chronic Anemia acute Congestive heart failure (CHF) acute COPD (chronic obstructive pulmonary disease) chronic Lung nodules chronic Metabolic encephalopathy res olved Pneumonia resolved Breast nodule acute Neck mass acute Iron deficiency anemia chron ic Lung nodules chronic Thrombocytopenia [facility] Work Phone: Evaluation note* Diagnosis Onset [...] nodules chronic Thrombocytopenia chronic Breast nodule acute [facility] Work Phone: Evaluation note* Diagnosis Onset Date Resolution Status Breast nodule acute Neck mass acute Iron deficiency anemia chron ic Lung nodules chronic Thrombocytopenia chronic Breast nodule acute Breast nodule acute Neck mass acute Iron deficiency anemia chron ic Lung nodules chronic Thrombocytopenia [facility] Work Phone: Evaluation note* Diagnosis Onset Date Resolution Status Breast nodule acute Neck mass acute Iron deficiency anemia chron ic Lung nodules chronic Thrombocytopenia [facility] Work Phone: Evaluation note* Diagnosis Onset Date Resolution Status Hematuria acute Iron deficiency anemia chron ic Lung nodules chronic Thrombocytopenia [facility] Work Phone: Evaluation note* Diagnosis Colovaginal fistula- Primary Colovaginal fistula Acquired thrombocytopenia (CMS/HCC) Secondary thrombocytopenia Encounter for preprocedural cardiovascular examination Dilated cardiomyopathy (CMS/HCC) Other primary cardiomyopathies Dilated cardiomyopathy (CMS/HCC) Other primary cardiomyopathies documented in this encounter [facility] Work Phone: Evaluation note* Diagnosis Diverticulitis- Primary Diverticulitis of colon (without mention of hemorrhage) Colovaginal fistula- Primary Diverticulitis Diverticulitis of colon (without mention of hemorrhage) documented in this encounter [facility] Work Phone: Evaluation note* Diagnosis Preop cardiovascular exam- Primary Pre-operative cardiovascular examination Chronic systolic heart failure (CMS/HCC) Chronic systolic heart failure documented in this encounter [facility] Work Phone: Evaluation note* Diagnosis Encounter for preadmission testing documented in this encounter [facility] Work Phone: Evaluation note* Diagnosis Encounter for preadmission testing documented in this encounter [facility] Work Phone: Hospital course Narrative No data available for this section [facility] Discharge instructions No data available for this section [facility] Discharge instructions Additional Instructions Your CT [...] have a progression or worsening of your symptoms.[facility] Work Phone: Progress note No data available for this section [facility] Summary Purpose Family History No Family History Records Found Sister Name Dates Details Family history of malignant neoplasm of breast(V16.3, Z80.3) Status:Active Relationship Condition Age at Onset Recorded Date/T obinna sister Malignant neoplasm of breast Unknown grandmother Diabetes mellitus Unknown Advance Directives No Advanced Directives Records Found Advance Directive Response Recorded Date/ Time Living Will No November 24 9:00am Power of Mailroom Courier No November 24, 2021 9:00am Advance Directive Response Recorded Date/ Time Living Will No November 24 8:00am Power of Mailroom Courier No November 24, 2021 8:00am Advance Directive Response Recorded Date/ Time Living Will No April 19, 2023 4 :46pm Power of Mailroom Courier No April 19, 2023 4:46pm Advance Directive Response Recorded Date/ Time Living Will No July 14 4:04pm Power of Mailroom Courier No July 14, 023 4:04pm Advance Directive Response Recorded Date/ Time Living Will No August 09, 2023 11:01pm Power of Mailroom Courier No July 11:01pm Advance Directive Response Recorded Date/ Time Living Will No September 14 10:49pm Power of Mailroom Courier No September 14, 2023 10:49pm Latest Code [...] Will No September 14 9:49pm Power of Mailroom Courier No September 14, 2023 9:49pm Latest Code [...] Procedures ECG 12 [place] [address] [place] [address] Referral ID Status Reason Start Date Expiration Date V isits Requested Visits Authorized [id number] Pending Review 10/28/2023 10/27/2024 1 1 Specialty Diagnoses / Procedures Referred By Contac t Referred To Contact Diagnoses Colovaginal fistula Nancy Treviño, STEAM STATION SUPERVISOR-GRAIN OILSEED OR PASTURE FARM WORKER [id number] [facility] of Surgery-Colorectal [place] [id number] Referral ID Status Reason Start Date Expiration Date V isits Requested Visits Authorized [id number] Pending Review 09/28/2023 09/27/2024 1 1 Additional Source Comments INFORMATION SOURCE (unrecogn ized section and content) DATE CREATED AUTHOR 05/09/2018 [employer] DATE CREATED AUTHOR AUTHOR'S ORGANIZ ATION 07/14/2020 [employer] DATE CREATED AUTHOR AUTHOR'S ORGANIZ ATION 12/01/2021 [facility] DATE CREATED AUTHOR AUTHOR'S ORGANIZ ATION 11/06/2022 [facility] DATE CREATED AUTHOR AUTHOR'S ORGANIZ ATION 09/16/2023 [facility] ([place] DATE CREATED AUTHOR AUTHOR'S ORGANIZ ATION 10/19/2023 [facility] DATE CREATED AUTHOR AUTHOR'S ORGANIZ ATION 11/13/2023 [facility] DATE CREATED AUTHOR AUTHOR'S ORGANIZ ATION 07/25/2024 [facility] DATE CREATED AUTHOR AUTHOR'S ORGANIZ ATION 09/26/2025 [facility] Care Team (unrecognized sect ion and content) Care Team Personnel Name: BARBER CARLISLE Position: P4 Advanced Practice Nurse Member Role: Primary Care Physician Address: Address: [address] [place], [place] [address] Name: MARIANA RAMOS MD Position: ED Physician Member Role: Attending Physician Address: Address: [address] [place] [address] Care Team Related Persons Name: JOCY RUIZ Address: Home [address] [place], [place] [id number] [place] Name: JOCY RUIZ Address: Home [address] [place], [place] [id number] [place] Name: JOCY RUIZ Address: Home [address] [place] [id number] [place] Name: JOCY RUIZ Address: Home [address] [place] [phone] [place] Name: JOCY RUIZ Address: Home [address] [place] [id number] [place] Name: JOCY RUIZ Address: Home [address] [place], [place] [id number] [place] Name: JOCY RUIZ Address: Home [address] [place], [place] [id number] [place] Name: JOCY RAMIREZ Care Team Personnel Name: BARBER CARLISLE Position: P4 Advanced Practice Nurse Member Role: Primary Care Physician Address: Address: [address] [place], [place] [address] Care Team Related Persons Name: JOCY RUIZ Address: Home [address] [place], [place] [id number] [place] Name: JOCY RUIZ Address: Home [address] [place], [place] [id number] [place] Name: JOCY RUIZ Address: Home [address] [place] [id number] [place] Name: JOCY RUIZ Address: Home [address] [place] [address] [place] Name: JOCY RUIZ Address: Home [address] [place] [address] [place] Name: JOCY RUIZ Address: Home [address] [place] [phone] [place] Name: JOCY RUIZ Address: Home [address] [place] [id number] [place] Name: JOCY RAMIREZ Care Team Personnel Name: BARBER CARLISLE Position: P4 Advanced Practice Nurse Med Service: Active Provider Member Role: Primary Care Physician Address: Address: [address] [place], [place] [address] Care Team Related Persons Name: JOCY RUIZ Address: Home [address] [place], [place] [phone] [place] Name: JOCY RUIZ Address: Home [address] [place] [id number] [place] Name: JOCY RUIZ Address: Home [address] [place] [id number] [place] Name: JOCY RUIZ Address: Home [address] [place] [id number] [place] Name: JOCY RUIZ Address: Home [address] [place], [place] [id number] [place] Name: JOCY RUIZ Address: Home [address] [place] [address] [place] Name: JOCY RUIZ Address: Home [address] [place] [id number] [place] Name: JOCY RAMIREZ Care Team Personnel Name: BARBER CARLISLE Position: P4 Advanced Practice Nurse Med Service: Active Provider Member Role: Primary Care Physician Address: Address: [address] [place], [place] [address] Care Team Related Persons Name: JOCY RUIZ Address: Home [address] [place], [place] [id number] [place] Name: JOCY RUIZ Address: Home [address] [place] [address] [place] Name: JOCY RUIZ Address: Home [address] [place], [place] [phone] [place] Name: JOCY RUIZ Address: Home [address] [place] [phone] [place] Name: OJCY RUIZ Address: Home [address] [place], [place] [phone] [place] Name: JOCY RUIZ Address: Home [address] [place], [place] [address] [place] Name: JOCY RUIZ Address: Home [address] [place], [place] [address] [place] Name: JOCY RAMIREZ Care Team Personnel Name: BARBER CARLISLE Position: P4 Advanced Practice Nurse Med Service: Active Provider Member Role: Primary Care Physician Address: Address: [address] [facility] [place], [place] [address] Care Team Related Persons Name: JOCY RUIZ Address: Home [address] [place], [place] [phone] [place] Name: JOCY RUIZ Address: Home [address] [place], [place] [phone] [place] Name: JOCY RUIZ Address: Home [address] [place], [place] [phone] [place] Name: JOCY RUIZ Address: Home [address] [place], [place] [address] [place] Name: JOCY RUIZ Address: Home [address] [place], [place] [address] [place] Name: JOCY RUIZ Address: Home [address] [place], [place] [phone] [place] Name: JOCY RUIZ Address: Home [address] [place] [id number] [place] Name: JOCY RAMIREZ Care Team Personnel Name: BARBER CARLISLE Position: P4 Advanced Practice Nurse Member Role: Primary Care Physician Address: Address: [address] [facility] [place], [place] [address] Care Team Related Persons Name: JOCY RUIZ Address: Home [address] [place] [place] [id number] [place] Name: JOCY RUIZ Address: Home [address] [place] [phone] [place] Name: JOCY RUIZ Address: Home [address] [place] [place] [phone] [place] Name: JOCY RUIZ Address: Home [address] [place], [place] [phone] [place] Name: JOCY RUIZ Address: Home [address] [place], [place] [address] [place] Name: JOCY RUIZ Address: Home [address] [place] [phone] [place] Name: JOCY RUIZ Address: Home [address] [place] [phone] [place] Name: JOCY RAMIREZ Care Team Personnel Name: BARBER CARLISLE APRN-GRAIN OILSEED OR PASTURE FARM WORKER Position: P4 Advanced Practice Nurse Member Role: Primary Care Physician Address: Address: [address] [facility] [address] [facility] [place], [place] [address] Care Team Related Persons Name: JOCY RUIZ Address: Home [address] [place] [phone] [place] Name: JOCY RUIZ Address: Home [address] [place] [address] [place] Name: JOCY RUIZ Address: Home [address] [place] [phone] [place] Name: JOCY RUIZ Address: Home [address] [place] [phone] [place] Name: JOCY RUIZ Address: Home [address] [place] [address] [place] Name: JOCY RUIZ Address: Home [address] [place] [place] [phone] [place] Name: JOCY RUIZ Address: Home [address] [place] [address] [place] Name: JOCY RAMIREZ Care Team Personnel Name: BARBER CARLISLE APRN-GRAIN OILSEED OR PASTURE FARM WORKER Position: P4 Advanced Practice Nurse Member Role: Primary Care Physician Address: Address: [address] [facility] [address] [facility] [place], [place] [address] Care Team Related Persons Name: JOCY RUIZ Address: Home [address] [place], [place] [phone] [place] Name: JOCY RUIZ Address: Home [address] [place] [phone] [place] Name: JOCY RUIZ Address: Home [address] [place] [address] [place] Name: JOCY RUIZ Address: Home [address] [place] [address] [place] Name: JOCY RUIZ Address: Home [address] [place] [address] [place] Name: JOCY RUIZ Address: Home [address] [place] [phone] [place] Name: JOCY RUIZ Address: Home [address] [place] [phone] [place] Name: JOCY RAMIREZ Care Team Personnel Name: BARBER CARLISLE APRN-GRAIN OILSEED OR PASTURE FARM WORKER Position: P4 Advanced Practice Nurse Member Role: Primary Care Physician Address: Address: [address] [place], [place] [address] Care Team Related Persons Name: JOCY RUIZ Address: [address] [facility] [place] [phone] [place] Name: JOCY RUIZ Address: [address] [facility] [place] [address] [place] Name: JOCY RUIZ Address: Home [address] [place] [address] [place] Name: JOCY RUIZ Address: Home [address] [place], [place] [phone] [place] Name: JOCY RUIZ Address: Home [address] [place] [address] [place] Name: JOCY RUIZ Address: [address] [place] [address] [place] Name: JOCY RUIZ Address: Home [address] [place], [place] [phone] [place] Name: JOCY RAMIREZ Goals (unrecognized section and content) Goals may be documented in a n alternate section Care Teams (unrecognized sec tion and content) Team Status: Active Member Role Status Dates Barber Carlisle SCIENTIFIC RESEARCH ASSOCIATE, SCIENTIFIC RESEARCH ASSOCIATE-C Primary Care Provider Active Team Status: Inactive Member Role Status Dates Barber Carlisle SCIENTIFIC RESEARCH ASSOCIATE, SCIENTIFIC RESEARCH ASSOCIATE-C Primary Care Provider, Referri Provider Active Dr. Delfin Jeffries MD Attending Provider Active Team Status: Inactive Member Role Status Dates Barber Calrisle SCIENTIFIC RESEARCH ASSOCIATE, SCIENTIFIC RESEARCH ASSOCIATE-C Primary Care Provider Active Stef ELMORE Attending Provider Active Team Status: Active Member Role Status Dates Barber Carlisle SCIENTIFIC RESEARCH ASSOCIATE, SCIENTIFIC RESEARCH ASSOCIATE-C Primary Care Provider Active Dr. Delfin Jeffries MD Attending Provider, Referring Pro vider Active Team Status: Active Member Role Status Dates Barber Orestes SCIENTIFIC RESEARCH ASSOCIATE, SCIENTIFIC RESEARCH ASSOCIATE-C Primary Care Provider Active Jonathan Gilma ELMORE MD Attending Provider Active Team Status: Active Member Role Status Meche Medina Orestes SCIENTIFIC RESEARCH ASSOCIATE, SCIENTIFIC RESEARCH ASSOCIATE-C Primary Care Provider Active Dr. Ellis Tsai MD Emergency Provider Active Dr. Rebecca Resendiz , DO Admit Provider, Attending Provide r Active Team Status: Active Member Role Status Dates Barber Orestes SCIENTIFIC RESEARCH ASSOCIATE, SCIENTIFIC RESEARCH ASSOCIATE-C Primary Care Provider Active Dr. Ellis Tsai MD Emergency Provider Active Dr. Rebecca Resendiz , DO Admit Provider, Att ending Provider, Other Provider Active Dr. Serge Banks MD Other Provider Active Dr. Ajit Mcgill , Other Provider Active Dr. Martín Monique MD Other Provider Active Dr. Krzysztof Pennington MD Other Provider Active Viji Richey SCIENTIFIC RESEARCH ASSOCIATE, SCIENTIFIC RESEARCH ASSOCIATE-C Other Provider Active Team Status: Active Member Role Status Dates Barber Orestes SCIENTIFIC RESEARCH ASSOCIATE, SCIENTIFIC RESEARCH ASSOCIATE-C Primary Care Provider Active Dr. Ellis Tsai MD Emergency Provider Active Dr. Rebecca Resendiz DO Admit Provider, Other Provider Ac tive Dr. Serge Banks MD Other Provider Active Dr. Ajit Mcgill , Other Provider Active Dr. Martín Monique MD Attending Provider, Other Pro vider Active Dr. Krzysztof Pennington MD Other Provider Active Viji Richey NP, SCIENTIFIC RESEARCH ASSOCIATE-C Other Provider Active Dr. Hernando Padron MD Other Provider Active Dr. Thomas Ahumada MD Other Provider Active Team Status: Active Member Role Status Meche Medina Orestes SCIENTIFIC RESEARCH ASSOCIATE, SCIENTIFIC RESEARCH ASSOCIATE-C Primary Care Provider Active Dr. Miroslava Gonzalez MD Attending Provider Active Team Status: Active Member Role Status Meche Barber Carlisle SCIENTIFIC RESEARCH ASSOCIATE, SCIENTIFIC RESEARCH ASSOCIATE-C Primary Care Provider Active Dr. Ellis Tsai MD Emergency Provider Active Dr. Rebecca Resendiz , DO Admit Provider, Other Provider Ac tive Dr. Serge Banks MD Other Provider Active Dr. Ajit Mcgill , Other Provider Active Dr. Martín Monique MD Other Provider Active Dr. Krzysztof Pennington MD Other Provider Active Viji Richey SCIENTIFIC RESEARCH ASSOCIATE, SCIENTIFIC RESEARCH ASSOCIATE-C Other Provider Active Dr. Hernando Padron MD Attending Provider, Other Provid er Active Dr. Thomas Ahumada MD Other Provider Active Team Status: Active Member Role Status Dates Barber Carlisle NP, SCIENTIFIC RESEARCH ASSOCIATE-C Primary Care Provider Active Dr. Ellis Tsai MD Emergency Provider Active Dr. Rebecca Resendiz , DO Admit Provider, Other Provider Ac tive Dr. Serge Banks MD Other Provider Active Dr. Ajit Mcgill , Other Provider Active Dr. Martín Monique MD Other Provider Active Dr. Krzysztof Pennington MD Other Provider Active Viji Richey SCIENTIFIC RESEARCH ASSOCIATE, SCIENTIFIC RESEARCH ASSOCIATE-C Other Provider Active Dr. Hernando Padron MD Other Provider Active Dr. Thomas Ahumada MD Other Provider Active Dr. Miroslava Gonzalez MD Attending Provider Active Team Status: Active Member Role Status Dates Barber Carlisle SCIENTIFIC RESEARCH ASSOCIATE, SCIENTIFIC RESEARCH ASSOCIATE-C Primary Care Provider Active Dr. Moise Austin MD Attending Provider Active Team Status: Active Member Role Status Dates Barber Carlisle NP, SCIENTIFIC RESEARCH ASSOCIATE-C Primary Care Provider Active Dr. Ellis Tsai MD Emergency Provider Active Dr. Rebecca Resendiz , DO Admit Provider, Other Provider Ac tive Dr. Serge Banks MD Other Provider Active Dr. Ajit Mcgill , Other Provider Active Dr. Martín Monique MD Other Provider Active Dr. Krzysztof Pennington MD Other Provider Active Viji Richey NP, SCIENTIFIC RESEARCH ASSOCIATE-C Other Provider Active Dr. Hernando Padron MD Other Provider Active Dr. Thomas Ahumada MD Other Provider Active Dr. Pratima Jaime MD Other Provider Active Dr. Miroslava Gonzalez MD Attending Provider Active Team Status: Active Member Role Status Dates Barber Carlisle NP, SCIENTIFIC RESEARCH ASSOCIATE-C Primary Care Provider Active Dr. Ellis Tsai MD Emergency Provider Active Dr. Rebecca Resendiz , Admit Provider, Other Provider Ac tive Dr. Serge Banks MD Attending Provider, Other Provid er Active Dr. Ajit Mcgill , Other Provider Active Dr. Martín Monique MD Other Provider Active Dr. Krzysztof Pennington MD Other Provider Active Viji Richey NP, SCIENTIFIC RESEARCH ASSOCIATE-C Other Provider Active Dr. Hernando Padron MD Other Provider Active Dr. Thomas Ahumada MD Other Provider Active Dr. Pratima Jaime MD Other Provider Active Team Status: Active Member Role Status Dates Barber Lorson SCIENTIFIC RESEARCH ASSOCIATE, SCIENTIFIC RESEARCH ASSOCIATE-C Primary Care Provider Active Dr. Ellis Tsai MD Emergency Provider Active Dr. Rebecca Resendiz , DO Admit Provider, Other Provider Ac tive Dr. Serge Banks MD Other Provider Active Dr. Ajit Mcgill , Other Provider Active Dr. Martín Monique MD Other Provider Active Dr. Krzysztof Pennington MD Other Provider Active Viji Richey SCIENTIFIC RESEARCH ASSOCIATE, SCIENTIFIC RESEARCH ASSOCIATE-C Other Provider Active Dr. Hernando Padron MD Other Provider Active Dr. Thomas Ahumada MD Other Provider Active Dr. Pratima Jaime MD Attending Provider, Other Provid er Active Team Status: Inactive Member Role Status Dates Barber Carlisle SCIENTIFIC RESEARCH ASSOCIATE, SCIENTIFIC RESEARCH ASSOCIATE-C Primary Care Provider Active Jonathan Gilma ELMORE MD Attending Provider Active Team Status: Inactive Member Role Status Meche Barber Carlisle SCIENTIFIC RESEARCH ASSOCIATE, SCIENTIFIC RESEARCH ASSOCIATE-C Primary Care Provider Active Dr. Ellis Tsai MD Emergency Provider Active Dr. Rebecca Resendiz , DO Admit Provider, Other Provider Ac tive Dr. Serge Banks MD Other Provider Active Dr. Ajit Mcgill , Other Provider Active Dr. Martín Monique MD Other Provider Active Dr. Krzysztof Pennington MD Other Provider Active Viji Richey SCIENTIFIC RESEARCH ASSOCIATE, SCIENTIFIC RESEARCH ASSOCIATE-C Other Provider Active Dr. Hernando Padron MD Other Provider Active Dr. Thomas Ahumada MD Other Provider Active Dr. Pratima Jaime MD Attending Provider Active Team Status: Active Member Role Status Meche Perdomoalivia Carlisle SCIENTIFIC RESEARCH ASSOCIATE, SCIENTIFIC RESEARCH ASSOCIATE-C Primary Care Provider Active Dr. Moise Austin MD Attending Provider Active Dr. Rebecca Resendiz , Referring Provider Active Team Status: Active Member Role Status Meche Barber Carl[place] SCIENTIFIC RESEARCH ASSOCIATE, SCIENTIFIC RESEARCH ASSOCIATE-C Primary Care Provider Active Dr. Ellis Tsai MD Emergency Provider Active Dr. Rebecca Resendiz , DO Admit Provider, Other Provider Ac tive Dr. Serge Banks MD Other Provider Active Dr. Ajit Mcgill , Other Provider Active Dr. Martín Monique MD Attending Provider, Other Pro vider Active Dr. Krzysztof Pennington MD Other Provider Active Viji Richey NP, SCIENTIFIC RESEARCH ASSOCIATE-C Other Provider Active Dr. Hernando Padron MD Other Provider Active Dr. Thomas Ahumada MD Other Provider Active Dr. Pratima Jaime MD Referring Provider Active Team Status: Active Member Role Status Dates Barber Carlisle SCIENTIFIC RESEARCH ASSOCIATE, SCIENTIFIC RESEARCH ASSOCIATE-C Primary Care Provider Active Dr. Ellis Tsai MD Emergency Provider Active Dr. Rebecca Resendiz DO Admit Provider, Other Provider Ac tive Dr. Serge Banks MD Attending Provider, Other Provid er Active Dr. Ajit Mcgill DO Other Provider Active Dr. Martín Monique MD Other Provider Active Dr. Krzysztof Pennington MD Other Provider Active Viji Richey SCIENTIFIC RESEARCH ASSOCIATE, SCIENTIFIC RESEARCH ASSOCIATE-C Other Provider Active Dr. Hernando Padron MD Other Provider Active Dr. Thomas Ahumada MD Other Provider Active Dr. Pratima Jaime MD Referring Provider, Other Provid er Active Team Status: Inactive Member Role Status Meche Carlisle SCIENTIFIC RESEARCH ASSOCIATE, SCIENTIFIC RESEARCH ASSOCIATE-C Primary Care Provider Active Dr. Delfin Jeffries MD Other Provider Active TORRIE COLLAZO Attending Provider, Referring Provider Active Team Status: Inactive Member Role Status Meche Carlisle SCIENTIFIC RESEARCH ASSOCIATE, SCIENTIFIC RESEARCH ASSOCIATE-C Primary Care Provider, Referri ng Provider Active Dr. Sharmila Jackson MD Attending Provider Active Team Status: Inactive Member Role Status Meche Carlisle SCIENTIFIC RESEARCH ASSOCIATE, SCIENTIFIC RESEARCH ASSOCIATE-C Primary Care Provider Active Dr. Sharmila Jackson [...] Shahnaz Way DO Attending Provider, Emergency P rovider Active [...] DO Primary Care Provider Active Dr. Calvin eHster , DO Attending Provider, Emergency Pr ovider [...] Dr. Alecia Navarrete MD Attending Provider Active Insulation Worker Interior Surface Relationship Specialty Start Date End Date Barber Carlisle, STEAM STATION SUPERVISOR-GRAIN OILSEED OR PASTURE FARM WORKER [address] [place] [id number] PCP - General 07/04/20 Team Status: Active [...] Sr. , DO Primary Care Provider Active Insulation Worker Interior Surface Relationship Specialty Start Date End Date Barber Carlisle, [employer]ATION SUPERVISOR-GRAIN OILSEED OR PASTURE FARM WORKER PCP - General 07/04/20 Insulation Worker Interior Surface Relationship Specialty Start Date End Date Barber Carlisle APRN-CNP [address] [place] [address] PCP - General Family Medicine 10/27/23 Insulation Worker Interior Surface Relationship Specialty Start Date End Date Barber Carlisle APRN-CNP [address] [place] [address] PCP - General Family Medicine 10/27/23 Insulation Worker Interior Surface Relationship Specialty Start Date End Date IrmaethanBarber APRN-CNP [address] [place] [address] PCP - General Family Medicine 10/27/23 Reason for Visit (unrecogniz ed section and content) Specialty Diagnoses / Procedures Referred By Contac t Referred To Contact Diagnoses Colovaginal fistula Intestinal Abscess Procedures [facility] [place] [place] [address] [facility] [place] [address] [facility] [id number] [place] [id number] Referral ID Status Reason Start Date Expiration Date Visits Re quested Visits Authorized [id number] 1 1 Specialty Diagnoses / Procedures Referred By Contac t Referred To Contact Diagnoses Encounter for preadmission testing Procedures [place] 12 [place] [address] [place] [address] Referral ID Status Reason Start Date Expiration Date V isits Requested Visits Authorized [id number] Pending Review 10/28/2023 10/27/2024 1 1 Scheduled [...] or chew. 0815 (Given - Provider: Aldo Blood, SHAMA) 0847 [...] BE BASED ON THE PRIMARY CLINICAL RECORDS. [employer] provides no warranty or guarantee of the accuracy or completeness of information in this document.
[2025-10-23 08:39] LABS: Hematocrit 26.8 % (37-47); Hemoglobin 7.9 g/dL (12.0-15.0)
== END ==
LOC: OLS.ACH 05:00
PROVIDERS: PCP Internal Medicine; Visit Provider Internal Medicine
DX: D50.9 Iron deficiency anemia, unspecified (principal)
CPT/HCPCS: 36415; 85014; 85018

== ENCOUNTER → 2025-10-29 | Outpatient (CLI) | payer MEDICARE, MEDICAID, SELFPAY ==
--- NOTE | 2025-10-29 15:56 | CT_ITS ---
PROCEDURE: ABDOMEN/PELVIS WITH CONTRAST 10/29/2025 REASON FOR EXAM: DIVERTICULOSIS OF INTESTINE, PART UNSPECIFIED, WITHOUT PERFORATIO TECHNIQUE: Procedure Code: [id number] Modality: CT Procedure: ABDOMEN/PELVIS WITH CONTRAST Coronal and Sagittal reconstruction series were provided. CONTRAST: Isovue-300 VOLUME: 92 ML. Unspecified oral contrast also administered. One or more dose reduction techniques were used (e.g., Automated exposure control, adjustment of the mA and/or kV according to patient size, use of iterative reconstruction technique. RADIATION DOSE SUMMARY: CTDlvol: 13.3+ 18.34 mGy DLP: 1028.65 mGycm COMPARISON: None FINDINGS: Lung bases: Focal rounded area of ground-glass in the RIGHT lower lobe is partially imaged. Additional areas of prominent bandlike/linear likely atelectasis/scarring. Granuloma on the LEFT. Coronary atherosclerosis and/or stents. Liver: Ill-defined 11 mm hypodensity in the inferior subcapsular RIGHT lobe.. Spleen: Spleen is enlarged to 15.3 cm coronal by what appears to reflect a subtle nearly isoenhancing mass measuring roughly 10.0 x 9.1 cm coronal. Gallbladder: Cholecystectomy. Mild biliary dilatation with CBD measuring 11 mm. To mild central intrahepatic biliary dilatation also present. Pancreas: Atrophic. Multifocal hypodense probably cystic lesions incompletely characterize and suboptimally delineated by CT, up to 26 x 17 mm along the posterior pancreatic body. No clear ductal dilatation. Adrenals: 31 X 29 mm LEFT adrenal nodule containing macroscopic fat. Kidneys: Indeterminate 12 mm RIGHT renal lesion. Additional cysts and tiny hypodensities too small to characterize. 6 mm nonobstructing intrarenal calculus on the LEFT. Mild bilateral hydronephrosis presumably related to below bladder findings. Bowel: Diverticulosis. Abnormal appearance of the distal descending colon and sigmoid with focal wall thickening and mild adjacent inflammatory trace to small volume ill-defined fluid and phlegmon. Appearance suggests fistulization with the bladder which demonstrates marked wall thickening. Moderate colonic wall thickening in the region. An extraluminal collection situated between the sigmoid and the bladder is inseparable from both and may be partially intramural within the wall of the bladder measuring 4.7 x 1.7 cm compatible with abscess. This is also inseparable from the anterior uterus. Appendix not identified. Lymph nodes: Prominent but technically nonenlarged aortocaval nodes, for example up to 9 mm short axis. Vasculature: Atherosclerosis. Peritoneum: As above.. Bladder: As above. Otherwise decompressed by a Barnes catheter and suboptimally evaluated. Bladder wall thickening suggest associated cystitis. Reproductive Organs: As above. Nonspecific gas within the endometrial cavity may suggest fistulization with the uterus. Body Wall: Unremarkable. Bones: Degenerative findings. Trace scoliosis.. CT/Abdomen/Pelvis WITH Contrast IMPRESSION: 1. Findings compatible with perforated distal descending and sigmoid diverticul itis including 4.7 cm abscess inseparable from the sigmoid, bladder, and uterus as well as findings suggestive of fistulization wi th the bladder and possibly also the uterus. Probable associated cystitis. Colonic wall thickening recommend clinical follo w-up to ensure resolution and no underlying inflammatory colonic neoplasm as an alternative etiology. 2. Mild bilateral hydronephrosis presumably related to the above bladder findin gs in the absence of additional potential obstructing processes. 3. 10.0 cm indeterminate splenic mass and 11 mm indeterminate hepatic hypodensi ty. Correlate with medical history and recommend MRI abdomen with and without contrast. This should include MRCP given the belo w. If there is history of known malignancy, PET/CT or tissue sampling should be considered. 4. Multifocal hypodense pancreatic lesions are probably cystic, up to 26 mm, ch aracterized suboptimally delineated and incompletely characterized by CT but favorable for cystic neoplasm such as IPMN . Recommend inclusion of MRCP sequences and inclusion of the entire pancreas on above MRI. 5. 31 mm LEFT adrenal nodule may reflect myelolipoma given that this contains f at, however the preponderance of the finding is composed of soft tissue and therefore a collision tumor is possible. Recommend close follow-up. Adrenal protocol CT could be considered to evaluate washout characteristics of soft tissue elements however follow-up will likely be necessary, regardless. MRI is felt unlikely to provide additional information. 6. Indeterminate 12 mm RIGHT renal lesion could reflect a hemorrhagic/proteinac eous cyst however this is not definite on single phase CT. Recommend attention on above imaging. Targeted ultrasound could be considered however may be challenging given that multiple small renal lesions are present. 7. Cholecystectomy with mild biliary dilatation may be related to post cholecys tectomy effect. In the absence of priors to evaluate stability, correlate with serum bilirubin. 8. Additional description as above. Note that comparison with any available outside imaging may be helpful to estab omid stability and perhaps clarify the significance of above indeterminate findings in impressions #3-7. Yellow Alert: As above. The critical findings in the findings in impression #1 above were relayed direc tly by me by telephone to Sabi PENA working with the ordering provider friend, Reese on 10/30/2025 at 7:22 am [facility] . Incidental Finding Alert: Numerous findings as above. Recommend follow-up as ab ove. Management of incidental findings should follow the [employer] ([employer] Incidental Findings Committee re commendations. Reading Location: [id number]
== END | disposition home or self-care (01) ==
LOC: CT 15:53
PROVIDERS: PCP Internal Medicine; Referring Provider Internal Medicine Gastroenterology; Visit Provider Internal Medicine Gastroenterology
DX: D50.9 Iron deficiency anemia, unspecified (principal); D69.6 Thrombocytopenia, unspecified; K57.20 Diverticulitis of large intestine with perforation and abscess without bleeding
CPT/HCPCS: 74177; Q9967; A4216

== ENCOUNTER → 2025-10-30 05:00 | Outpatient (REF) | payer MEDICARE, MEDICAID, SELFPAY ==
--- OUTSIDE RECORDS SUMMARY | 2025-10-30 04:51 | XMS RPT_ITS | CCD ---
Author Organization [facility] Care Team Providers Care Vending Machine Filler Name Role Phone Ellis Martines Unavailable Unavailable PROVIDER, UNKNOWN Unavailable Unavailable Michelle Aguilar Unavailable Unavailab Kandi Zacarias Unavailable Unavailable Barber Carlisle Unavailable Unavailable Pranav Bonds Unavailable Unavailable Update Needed Unavailable Unavailable ORESTES DOCUMENTATION ENGINEER-FITTER WELDERBARBER Primary Care Physician ORESTES DOCUMENTATION ENGINEER-FITTER WELDER, BARBER Primary Care Physician ORESTES DOCUMENTATION ENGINEER-FITTER WELDER, BARBER Primary Care Physician Orestes AUDIOMETRIC TECHNICIAN, AUDIOMETRIC TECHNICIAN-C Barber Primary Care Provider [phone] Orestes AUDIOMETRIC TECHNICIAN, AUDIOMETRIC TECHNICIAN-C Barber Referring Provider [phone]([facility] )[phone] Dr. Delfin Jeffries Attending Provider Orestes AUDIOMETRIC TECHNICIAN, AUDIOMETRIC TECHNICIAN-C Barber Primary Care Provider [phone] Orestes AUDIOMETRIC TECHNICIAN, AUDIOMETRIC TECHNICIAN-C Barber Referring Provider 1([facility] )[phone] Dr. Delfin Jeffries Attending Provider Dr. Ellis Tsai Emergency Provider [phone] Dr. Rebecca Resendiz Admit Provider Dr. Rebecca Resendiz Attending Provider [phone] Dr. Rebecca Resendiz Other Provider Dr. Serge Banks Other Provider Dr. Ajit Mcgill Other Provider Dr. Martín Monique Other Provider 1([facility])[phone] Krzysztof Pennington Other Provider Unavailab rambo Richey AUDIOMETRIC TECHNICIAN, AUDIOMETRIC TECHNICIAN-C V[place] Other Provider Dr. Miroslava Gonzalez Attending Provider Dr. Martín Monique Attending Provider Dr. Hernando Padron Other Provider Unavailable Dr. Thomas Ahumada Other Provider Unavaila Dr. Moise Jo Attending Provider Dr. Hernando Padron Attending Provider Unavailable Dr. Pratima Jaime Attending Provider Dr. Pratima Jaime Other Provider Dr. Serge Banks Attending Provider Dr. Rebecca Resendiz Referring Provider Orestes AUDIOMETRIC TECHNICIAN, AUDIOMETRIC TECHNICIAN-C [place] Primary Care Provider [phone] Orestes AUDIOMETRIC TECHNICIAN, AUDIOMETRIC TECHNICIAN-C Barber Referring Provider [phone] Dr. Delfin Jeffries Attending Provider Dr. Pratima Jaime Referring Provider Dr. Sharmila Jackson Attending Provider Orestes AUDIOMETRIC TECHNICIAN, AUDIOMETRIC TECHNICIAN-C [place] Primary Care Provider [phone] Orestes AUDIOMETRIC TECHNICIAN, AUDIOMETRIC TECHNICIAN-C Barber Referring Provider [phone] Dr. Delfin Jeffries Attending Provider Gilma ELMORE MD Jonathan Primary Care Provider Unava ilable Gilma ELMORE MD Jonathan Referring Provider Unavaila Dr. Delfin Hutchins Attending Provider Dr. Jonathan Dillard Sr. Primary Care Provider Dr. Jonathan Dillard Sr. Referring Provider Dr. Delfin Jeffries Attending Provider SOLITARIO STUBBS, DR CAMPOS Attending Unavailabl e LORETHAN DOCUMENTATION ENGINEER-FITTER WELDER, [facility] Unavail renata JEREZ MD, DR CAMPOS Attending Unavailabl e LORETHAN DOCUMENTATION ENGINEER-FITTER WELDER, [facility] Unavail renata JEREZ MD, DR CAMPOS Attending Unavailabl e LORETHAN DOCUMENTATION ENGINEER-FITTER WELDER, BARBER Primary Care Unavail able FLIGHT DOCUMENTATION ENGINEER-FITTER WELDER, RENETTA Attending Unavail able LORSON DOCUMENTATION ENGINEER-FITTER WELDER, [facility] Unavail able CRISSY STUBBS, DR OSEI PACHECO Attending Unav ailable LORSON DOCUMENTATION ENGINEER-FITTER WELDER, [facility] Unavail able FLIGHT DOCUMENTATION ENGINEER-FITTER WELDER, RENETTA Attending Unavail able LORSON DOCUMENTATION ENGINEER-FITTER WELDER, [facility] Unavail able BYRON STUBBS, TRACE Sprague Attending Unavailable LORSON DOCUMENTATION ENGINEER-FITTER WELDER, [facility] Unavail able Lorson DOCUMENTATION ENGINEER-FITTER WELDER, [facility] Primary Care Pr ovider Deperro Sr., Dr. Castillo Primary Care Provider Gilma Sr., Dr. Castillo Referring Provider Dr. Delfin Jeffries Attending Provider Dr. Calvin Hester Emergency Provider Dr. Lucia Jurado Attending Provider [phone] Dr. Calvin Hester Referring Provider Dr. Susy Delarosa Attending Provider [phone] VARSHA SOTELO Attending Unavail able ORESTES, [facility] Unavaila ble [place]orson DOCUMENTATION ENGINEER-FITTER WELDER, [facility] Emergency Department Pr ovider [place] DOCUMENTATION ENGINEER-FITTER WELDER, [facility] Emergency Department Pr ovider ORESTES [facility] Unavaila ble DELFIN MELARA Admitting Unavailable VARSHA SOTELO Attending Unavail able VARSHA SOTELO Admitting Unavail able VARSHA SOTELO Attending Unavail able ORESTES, [facility] Unavaila ble LORSON, [facility] Unavaila ble LORSON, [facility] Unavaila ble ELIDA VILLAREAL Attending Unavailable LORSON, [facility] Unavaila ble LORSON, [facility] Unavaila ble RITU HARRELL Referring Unavailable LORSON, [facility] Unavaila ble Deperro OLS, Jonathan Attending Unavailable [...] sources) cyclobenzaprine; Translations: [cyclobenzaprine] Drug Allergy 3 [facility] (20 sources) tiZANidine; Translations: [tizanidine] Drug Allergy 3 [facility] (6 sources) Acetaminophen / oxyCODONE; Translations: [OXYCODONE-ACETAMIN OPHEN] Drug Allergy 6 Palpitations [facility] 3 Repository (1 source) cyclobenzaprine Drug Allergy 5 [facility] Repository (1 source) tiZANidine Drug Allergy 5 [facility] Repository Medications Current Medications Medication Drug [...] 19, 2023 12:00am take 2 tablets by md ut once daily at bedtime acetaminophen (Tylenol) [...] preference, # 1 EA, 0 Refill(s), Pharmacy: [facility] 166, cm, 09/09/20 [...] # 60 cap(s), 11 Refill(s), Pharmacy: [facility] [address], 166, cm, 09/09/20 11:16:00 EDT, Height, [...] diabetes, # 1 EA, 0 Refill(s), Pharmacy: [facility], 165, cm, 01/16/21 13:33:00 EST, Height, 94.9, kg, 09/16/21 13:29:00 EDT, Dosing Weight Start Date: 09/28/21 Status: Ordered Start: 09-23-2021 DME MISCellane ous See Instructions, True Plus Lancets check blood sugar once daily. #1 box for 90 day supply x 0 refills Dx: diabetes, # 1 EA, 3 Refill(s), Pharmacy: [facility], Diabetes, 165, cm, 01/16/21 13:33:00 EST, Height, 94.9, kg, 09/16/21... Start Date: 09/23/21 Status: Ordered Start: 04-30-2021 DME MISCellane ous See Instructions, True Plus Lancets check blood sugar once daily. #1 box for 90 day supply x 0 refills Dx: diabetes, # 1 EA, 0 Refill(s), Pharmacy: [facility], Diabetes, 165, cm, 01/16/21 13:33:00 EST, Height, 96.36, kg, ... Start Date: 04/30/21 Status: Ordered Start: 04-30-2021 DME MISCellane ous See Instructions, Alcohol Pads Use as directed Dispense 90 day supply x 0 refills DX: diabetes, # 1 EA, 0 Refill(s), Pharmacy: [facility], 165, cm, [...] Ordered docusate sodium 50 mg / sennosides, fpc 8.6 mg oral tablet (20 sources) Start: [...] at 2000 Indications: venous thrombosis estrogens, conjugated (fpc) 0.625 mg/ml vaginal cream (8 sources) Estrogen [...] gram(s), 11 Refill(s), [facility] [address] 166, cm, 09/09/20 11:16:00 EDT, Height, kg, 09/09/20 11:16:00 EDT, Dosing Weight Start Date: 10/28/20 Status: Ordered folic acid 1 mg oral tablet (20 sources) Start: 11-11-2022 take 1 mg by mouth once daily Folic Acid Active 1 MG PO DAILY November 11, 2022 12:00am Freestyle [place] 14 day sensor (1 source) Start: 09-16-2021 Freestyle Read er 14 day sensor See Instructions, 1 month supply, # 2 EA, 0 Refill(s), Pharmacy: [facility], 165, cm, [...] qDay, # 30 tab(s), 3 Refill(s), Pharmacy: [facility], Diarrhea Diabetes [...] qDay, # 90 tab(s), 3 Refill(s), Pharmacy: [facility], 165vira, 05/04/22 10:05:00 EDT, [...] qDay, # 90 tab(s), 3 Refill(s), Pharmacy: [facility], vira Covarrubias, 01/16/21 13:33:00 EST, Height, kg, 04/06/21 13:21:00 EDT, Dosing Weight Start Date: 04/22/21 Status: Ordered Start: 06-11-2013 take 1 tablet by [facility] every twenty-four hours Metoprolol Succinate ER [...] qDay, # 90 tab(s), 3 Refill(s), Pharmacy: [facility], 165, cm, 05/04/22 10:05:00 [...] qDay, # 90 tab(s), 3 Refill(s), Pharmacy: [facility], 165, cm, 01/16/21 13:33:00 EST, Height, kg, 04/06/21 13:21:00 EDT, Dosing Weight Start Date: 04/22/21 Status: Ordered nitroglycerin 0.4 mg sublingual tablet (3 sources) Start: 04-22-2021 nitroglycerin 0.4 mg sublingual tablet See Instructions, DISSOLVE 1 TABLET UNDER THE TONGUE NEEDED FOR CHEST PAIN EVERY 5 MINUTES UP TO 3 TIMES. IF NO RELIEF CALL 911., # 25 tab(s), 0 Refill(s), Pharmacy: [facility], 165, cm, 01/16/21 13:33:00 EST, Height, kg, ... Start Date: 04/22/21 Status: Ordered nystatin 100,000 units/g topical cream (1 source) Start: 09-16-2021 End: 12-09-2021 nystatin 100,000 units/g topical cream Apply 1 marcy, Topical, BID, X 14 day(s), # 30 gram(s), 5 Refill(s), Pharmacy: [facility], Cream, 165, [...] Start: 08-09-2023 take 2 tablets by mo [facility] once daily Cyanocobalamin (Vitamin B-12) (B-12 [...] 2X/week, # 42.5 gram(s), 11 Refill(s), [facility], 165, cm, 01/06/22 9:22:00 [...] once daily. For 7 days ending 09/20/23. (Locality Ultimate Jie Probiotic 15 BILLION per SNF list) 0 09/27/2023 10/31/2023 Discontinued (Discontinued by another clinician) Start: 09-27-2023 take 1 capsule by [facility] once daily L. acidophilus-L. rhamnosus (Probiotic) 15 billion cell capsule Indications: Dilated cardiomyopathy (CMS/HCC) Take 1 capsule by mouth once daily. For 7 days ending 09/20/23. (Loc[employer] Ultimate Jie Probiotic 15 BILLION per SNF [...] Daily, # 90 tab(s), 3 Refill(s), Pharmacy: [facility], 165, cm, [...] Date: 07/20/22 Status: Ordered polyethylene glycol 3350 90842 mg powder for oral solution (20 sources) [...] Date: 07/20/22 Status: Ordered polyethylene glycol 3350 321323 mg / potassium chloride 2970 mg / sodium bicarbonate 6740 mg / sodium chloride 5860 mg / sodium sulfate 06958 mg powder for oral solution (1 source) [...] Oncology Visit Reporton 09-14 Oncology Visit Report [facility] [address] [place] [id number] OFFICE VISIT Date of Service: 09/26/25 0934 MR#: [id number] Acct: [id number] Name: POLI RAMIREZ Rep #: [id number] : 1950 From: Delfin Jeffries MD Age/Sex: 74/F Location: [facility] Status: Signed HPI Subjective Date of [...] do Oral Iron supplements. Was seen in [facility], CT chest on 02/18/2023 showed L breast nodule, multiple small lung nodules. CT neck done on 03/18/2023 showed post operative changes. Got iron infusion at [place]. Comes for follow up, found to have Anemia and referred for follow up. Has Folley's Cath in place. [facility] Medical History Colitis On mechanically assisted ventilation [...] Breast cancer Grandmother Diabetes Social History housing: shelter Smoking Status: Former smoker alcohol intake: never [...] bisacodyl 10 mg rectal suppository 10 mg LA DAILY PRN constipation 11/11/22 09/26/25 History acetaminophen [...] pain 09/26 (more content not included)... Normal [facility] HH, Hemoglobin AND Hematocri ton 09-25-2025 Hematocrit (Bld) [Volume fraction] 24.6 % Low 37-47 [facility] Comment on above: Order Comment: 310-2 Performed By: #### L 100.0600 #### [facility] [address] [place], [address] Hemoglobin (Bld) [Mass/Vol] 7.3 g/dL Low 12.0-15.0 [facility] Comment on above: Order Comment: 310-2 Performed By: #### L 100.0600 #### [facility] [address] [place], [address] CBC-Complete Blood Cnt No Di ffon 09-18-2025 Erythrocyte distribution width (RBC) [Ratio] 14.2 % Normal 11.6-14.6 [facility] Comment on above: Order Comment: 310.2 Performed By: #### L 500.4050, L100.0500 #### [facility] [address] [place], [address] Hematocrit (Bld) [Volume fraction] 24.5 % Low 37-47 [facility] Comment on above: Order Comment: 310.2 Performed By: #### L 500.4050, L100.0500 #### [facility] [address] [place], [address] Hemoglobin (Bld) [Mass/Vol] 7.3 g/dL Low 12.0-15.0 [facility] Comment on above: Order Comment: 310.2 Performed By: #### L 500.4050, L100.0500 #### [facility] [address] [place], [address] MCH (RBC) [Entitic mass] 28.0 pg Normal 27.0-32.0 [facility] Comment on above: Order Comment: 310.2 Performed By: #### L 500.4050, L100.0500 #### [facility] [address] [place], [address] MCHC (RBC) [Mass/Vol] 29.8 g/dL Low 32-36 [facility] Comment on above: Order Comment: 310.2 Performed By: #### L 500.4050, L100.0500 #### [facility] [address] [place], [address] MCV (RBC) [Entitic vol] 93.9 fL Normal 81-99 [facility] Comment on above: Order Comment: 310.2 Performed By: #### L 500.4050, L100.0500 #### [facility] [address] [place], [address] Platelet mean volume (Bld) [Entitic vol] 9.5 fL Normal 6.2-12.0 [facility] Comment on above: Order Comment: 310.2 Performed By: #### L 500.4050, L100.0500 #### [facility] [address] [place], [address] Platelets (Bld) [#/Vol] 83 10*3/uL Low 150-450 [facility] Comment on above: Order Comment: 310.2 Performed By: #### L 500.4050, L100.0500 #### [facility] [address] [place], [address] RBC (Bld) [#/Vol] 2.61 10*6/uL Low 4.2-5.4 [facility] Comment on above: Order Comment: 310.2 Performed By: #### L 500.4050, L100.0500 #### [facility] [address] [place], [address] RDW SD 47.9 fl High 35.1-43.9 [facility] Comment on above: Order Comment: 310.2 Performed By: #### L 500.4050, L100.0500 #### [facility] [address] [place], [address] WBC (Bld) [#/Vol] 4.3 10*3/uL Low 4.4-11.0 [facility] Comment on above: Order Comment: 310.2 Performed By: #### L 500.4050, L100.0500 #### [facility] [address] [place], [address] Differential Commenton 09-18 SMEAR COMMENT SCANNED Normal [facility] Comment on above: Order Comment: 310.2 Performed By: #### L 500.4050, L100.0500 #### [facility] [address] [place], [address] HH, Hemoglobin AND Hematocri ton 09-11-2025 Hematocrit (Bld) [Volume fraction] 28.5 % Low 37-47 [facility] Comment on above: Order Comment: 310.2 Performed By: #### L 500.4050, L100.0500 #### [facility] [address] [place], [address] Hemoglobin (Bld) [Mass/Vol] 8.4 g/dL Low 12.0-15.0 [facility] Comment on above: Order Comment: 310.2 Performed By: #### L 500.4050, L100.0500 #### [facility] [address] [place], [address] Basic Metabolic Profile (BMP )on 09-10-2025 BUN/CRE 15.9 RATIO Normal 10-20 [facility] Comment on above: Performed By: #### L 100.0500, L500.2500, BTS #### [facility] [address] [place], [address] Calcium [Mass/Vol] 8.5 mg/dL Normal 7.6-11.0 [facility] Comment on above: Performed By: #### L 100.0500, L500.2500, BTS #### [facility] [address] [place], [address] Chloride [Moles/Vol] 101 mmol/L Normal 98-108 [facility] Comment on above: Performed By: #### L 100.0500, L500.2500, BTS #### [facility] [address] [place], [address] CO2 [Moles/Vol] 34.5 mmol/L High 21.0-32.0 [facility] Comment on above: Performed By: #### L 100.0500, L500.2500, BTS #### [facility] [address] [place], [address] Creatinine [Mass/Vol] 0.82 mg/dL Normal 0.70-1.20 [facility] Comment on above: Performed By: #### L 100.0500, L500.2500, BTS #### [facility] [address] [place], [address] ECRCL 62.66 ml/min Normal 50-250 [facility] Comment on above: Performed By: #### L 100.0500, L500.2500, BTS #### [facility] [address] [place], [address] GAP 9 Normal 5-15 [facility] Comment on above: Performed By: #### L 100.0500, L500.2500, BTS #### [facility] [address] [place], [address] GFR/1.73 sq M.predicted among non-blacks MDRD (S/P/Bld) [Vol rate/Area] 74 mL/min/{1.73_m2} Normal >60 [facility] Comment on above: Result Comment: mL/m in/1.73m2 CKD-EPI Creatinine Equation (2020) Performed By: #### L 100.0500, L500.2500, BTS #### [facility] [address] [place], [address] Glucose [Mass/Vol] 182 mg/dL High 70-99 [facility] Comment on above: Performed By: #### L 100.0500, L500.2500, BTS #### [facility] [address] [place], [address] Potassium [Moles/Vol] 4.3 mmol/L Normal 3.3-5.1 [facility] Comment on above: Result Comment: Hemo lysis present, Results??could be affected. ?? Performed By: #### L 100.0500, L500.2500, BTS #### [facility] [address] [place], [address] Sodium [Moles/Vol] 145 mmol/L Normal 133-145 [facility] Comment on above: Performed By: #### L 100.0500, L500.2500, BTS #### [facility] [address] [place], [address] Urea nitrogen [Mass/Vol] 13 mg/dL Normal 4-19 [facility] Comment on above: Performed By: #### L 100.0500, L500.2500, BTS #### [facility] [address] [place], [address] CBC-Complete Blood Cnt No Di ffon 09-10-2025 Erythrocyte distribution width (RBC) [Ratio] 14.3 % Normal 11.6-14.6 [facility] Comment on above: Performed By: #### L 100.0500, L500.2500, BTS #### [facility] [address] [place], [address] Hematocrit (Bld) [Volume fraction] 26.5 % Low 37-47 [facility] Comment on above: Performed By: #### L 100.0500, L500.2500, BTS #### [facility] [address] [place], [address] Hemoglobin (Bld) [Mass/Vol] 7.9 g/dL Low 12.0-15.0 [facility] Comment on above: Performed By: #### L 100.0500, L500.2500, BTS #### [facility] [address] [place], [address] MCH (RBC) [Entitic mass] 27.8 pg Normal 27.0-32.0 [facility] Comment on above: Performed By: #### L 100.0500, L500.2500, BTS #### [facility] [address] [place], [address] MCHC (RBC) [Mass/Vol] 29.8 g/dL Low 32-36 [facility] Comment on above: Performed By: #### L 100.0500, L500.2500, BTS #### [facility] [address] [place], [address] MCV (RBC) [Entitic vol] 93.3 fL Normal 81-99 [facility] Comment on above: Performed By: #### L 100.0500, L500.2500, BTS #### [facility] [address] [place], [address] Platelet mean volume (Bld) [Entitic vol] 10.7 fL Normal 6.2-12.0 [facility] Comment on above: Performed By: #### L 100.0500, L500.2500, BTS #### [facility] [address] [place], [address] Platelets (Bld) [#/Vol] 111 10*3/uL Low 150-450 [facility] Comment on above: Performed By: #### L 100.0500, L500.2500, BTS #### [facility] [address] [place], [address] RBC (Bld) [#/Vol] 2.84 10*6/uL Low 4.2-5.4 [facility] Comment on above: Performed By: #### L 100.0500, L500.2500, BTS #### [facility] [address] [place], [address] RDW SD 48.1 fl High 35.1-43.9 [facility] Comment on above: Performed By: #### L 100.0500, L500.2500, BTS #### [facility] [address] [place], [address] WBC (Bld) [#/Vol] 5.1 10*3/uL Normal 4.4-11.0 [facility] Comment on above: Performed By: #### L 100.0500, L500.2500, BTS #### [facility] [address] [place], [address] Emergency Department Summary on 09-10-2025 Emergency Department Summary [facility] Medical Records Department [address] [place] [address] Emergency Department Summary 09/10/25 MR#: [id number] Acct: [id number] Name: POLI RAMIREZ Rep #: [id number] : 1950 74 From: Royce Vigil MD [...] Symptoms: Patient denies orthostatic symptoms or dyspnea, Villanueva exertion, chest bigg Narrative Narrative: Patient is [...] Prior similar symptoms: Yes Recent Illness[facility]: [facility] Medical History Colitis On mechanically assisted ventilation [...] bisacodyl 10 mg rectal suppository 10 mg LA DAILY PRN constipation 11/11/22 Unknown History cranberry [...] constipation Unkno (more content not included)... Normal [facility] Stool Occult Blood iFOBon STOB Positive Normal [facility] Comment on above: Performed By: #### M 100.7900 #### [facility] [address] [place], [address] Type AND Screenon 09-10-2025 Ab SCREEN GEL Negative Normal [facility] Comment on above: Order Comment: HGI Performed By: #### L 100.0500, L500.2500, BTS #### [facility] [address] [place], [address] HH, Hemoglobin AND Hematocri ton 09-09-2025 Hematocrit (Bld) [Volume fraction] 24.4 % Low 37-47 [facility] Comment on above: Order Comment: 310.2 Performed By: #### L 500.4050, L100.0500 #### [facility] [address] [place], [address] Hemoglobin (Bld) [Mass/Vol] 7.0 g/dL Low 12.0-15.0 [facility] Comment on above: Order Comment: 310.2 Performed By: #### L 500.4050, L100.0500 #### [facility] [address] [place], [address] Ferritinon 09-06-2025 Ferritin [Mass/Vol] 52 ng/mL Normal 22-378 [facility] Comment on above: Order Comment: 310.2 Performed By: #### L 500.4050, L100.0500 #### [facility] [address], [address] Iron+Iron Binding Capacityon 09-06-2025 TIBC 182 ug/dL Low 250-450 [facility] Comment on above: Order Comment: 310.2 Performed By: #### L 500.4050, L100.0500 #### [facility] [address] [place], [address] Vitamin B12on 09-06-2025 Cobalamin (Vitamin B12) [Mass/Vol] 195 pg/mL Normal 180-914 [facility] Comment on above: Order Comment: 310.2 Performed By: #### L 500.4050, L100.0500 #### [facility] [address] [place], [address] CBC-Complete Blood Cnt No Di ffon 09-04-2025 Platelets (Bld) [#/Vol] 91 10*3/uL Low 150-450 [facility] Comment on above: Order Comment: 310.2 Performed By: #### L 100.0500, L500.4050, L501.9985 #### [facility] [address] [place], [address] Comprehensive Metabolic Prof ilon 09-04-2025 Albumin [Mass/Vol] 3.4 g/dL Normal 3.4-4.8 [facility] Comment on above: Order Comment: 310.2 Performed By: #### L 500.4050, L100.0500 #### [facility] [address] [place], [address] Albumin/Globulin [Mass ratio] 1.2 {ratio} Normal 0.9-2.4 [facility] Comment on above: Order Comment: 310.2 Performed By: #### L 500.4050, L100.0500 #### [facility] [address] [place], [address] ALK PHOS 61 U/L Normal 35-104 [facility] Comment on above: Order Comment: 310.2 Performed By: #### L 500.4050, L100.0500 #### [facility] [address] [place], [address] ALT [Catalytic activity/Vol] U/L Normal <=34 [facility] Comment on above: Order Comment: 310.2 Performed By: #### L 500.4050, L100.0500 #### [facility] [address] [place], [address] AST [Catalytic activity/Vol] 14 U/L Normal <=31 [facility] Comment on above: Order Comment: 310.2 Performed By: #### L 500.4050, L100.0500 #### [facility] [address] [place], [address] Bilirubin [Mass/Vol] 0.22 mg/dL Normal 0.00-1.30 [facility] Comment on above: Order Comment: 310.2 Performed By: #### L 500.4050, L100.0500 #### [facility] [address] [place], [address] BUN/CRE 29.8 RATIO High 10-20 [facility] Comment on above: Order Comment: 310.2 Performed By: #### L 500.4050, L100.0500 #### [facility] [address] [place], [address] Calcium [Mass/Vol] 8.4 mg/dL Normal 7.6-11.0 [facility] Comment on above: Order Comment: 310.2 Performed By: #### L 500.4050, L100.0500 #### [facility] [address] [place], [address] Chloride [Moles/Vol] 104 mmol/L Normal 98-108 [facility] Comment on above: Order Comment: 310.2 Performed By: #### L 500.4050, L100.0500 #### [facility] [address] [place], [address] CO2 [Moles/Vol] 35.7 mmol/L High 21.0-32.0 [facility] Comment on above: Order Comment: 310.2 Performed By: #### L 500.4050, L100.0500 #### [facility] [address] [place], [address] Creatinine [Mass/Vol] 0.53 mg/dL Low 0.70-1.20 [facility] Comment on above: Order Comment: 310.2 Performed By: #### L 500.4050, L100.0500 #### [facility] [address] [place], [address] GAP 7 Normal 5-15 [facility] Comment on above: Order Comment: 310.2 Performed By: #### L 500.4050, L100.0500 #### [facility] [address] [place], [address] GFR/1.73 sq M.predicted among non-blacks MDRD (S/P/Bld) [Vol rate/Area] 96 mL/min/{1.73_m2} Normal >60 [facility] Comment on above: Order Comment: 310.2 Result Comment: mL/m in/1.73m2 CKD-EPI Creatinine Equation (2020) Performed By: #### L 500.4050, L100.0500 #### [facility] [address] [place], [address] Globulin (S) [Mass/Vol] 2.7 g/dL Normal 2.2-4.2 [facility] Comment on above: Order Comment: 310.2 Performed By: #### L 500.4050, L100.0500 #### [facility] [address] [place], [address] Glucose [Mass/Vol] 118 mg/dL High 70-99 [facility] Comment on above: Order Comment: 310.2 Performed By: #### L 500.4050, L100.0500 #### [facility] [address] [place], [address] Potassium [Moles/Vol] 3.8 mmol/L Normal 3.3-5.1 [facility] Comment on above: Order Comment: 310.2 Performed By: #### L 500.4050, L100.0500 #### [facility] [address] [place], [address] Sodium [Moles/Vol] 146 mmol/L High 133-145 [facility] Comment on above: Order Comment: 310.2 Performed By: #### L 500.4050, L100.0500 #### [facility] [address] [place], [address] T PROT 6.1 g/dL Normal 5.9-8.4 [facility] Comment on above: Order Comment: 310.2 Performed By: #### L 500.4050, L100.0500 #### [facility] [address] [place], [address] Urea nitrogen [Mass/Vol] 16 mg/dL Normal 4-19 [facility] Comment on above: Order Comment: 310.2 Performed By: #### L 500.4050, L100.0500 #### [facility] [address] [place], [address] Hemoglobin A1con 09-04-2025 HbA1c (Bld) [Mass fraction] % Normal <=5.6 [facility] Comment on above: Order Comment: 310.2 Result Comment: Norm al < 5.7 % Prediabetic 5.7 - 6.4 % Diabetic >or= 6.5 % Please note range changes. Performed By: #### L 500.4050, L100.0500 #### [facility] [address] [place], [address] CBC-Complete Blood Cnt No Di ffon 09-03-2025 HCT Normal 37-47 [facility] Comment on above: Order Comment: 310.2 Result Comment: KELLY CHAVEZ SUSY @610. TRY 09/04/25 Performed By: #### L 500.4050, L100.0500 #### [facility] [address] [place], [address] HGB Normal 12.0-15.0 [facility] Comment on above: Order Comment: 310.2 Result Comment: KELLY CHAVEZ SUSY @610. TRY 09/04/25 Performed By: #### L 500.4050, L100.0500 #### [facility] [address] [place], [address] MCH Normal 27.0-32.0 [facility] Comment on above: Order Comment: 310.2 Result Comment: KELLY CHAVEZ SUSY @610. TRY 09/04/25 Performed By: #### L 500.4050, L100.0500 #### [facility] [address] [place], [address] MCHC Normal 32-36 [facility] Comment on above: Order Comment: 310.2 Result Comment: KELLY CHAVEZ SUSY @610. TRY 09/04/25 Performed By: #### L 500.4050, L100.0500 #### [facility] [address] [place], [address] MCV Normal 81-99 [facility] Comment on above: Order Comment: 310.2 Result Comment: KELLY JAIN @610. TRY 09/04/25 Performed By: #### L 500.4050, L100.0500 #### [facility] [address] [place], [address] PLT Normal 150-450 [facility] Comment on above: Order Comment: 310.2 Result Comment: KELLY JAIN @610. TRY 09/04/25 Performed By: #### L 500.4050, L100.0500 #### [facility] [address] [place], [address] RBC Normal 4.2-5.4 [facility] Comment on above: Order Comment: 310.2 Result Comment: KELLY JAIN @610. TRY 09/04/25 Performed By: #### L 500.4050, L100.0500 #### [facility] [address] [place], [address] RDW CV Normal 11.6-14.6 [facility] Comment on above: Order Comment: 310.2 Result Comment: KELLY JAIN @610. TRY 09/04/25 Performed By: #### L 500.4050, L100.0500 #### [facility] [address] [place], [address] RDW SD Normal 35.1-43.9 [facility] Comment on above: Order Comment: 310.2 Result Comment: KELLY JAIN @610. TRY 09/04/25 Performed By: #### L 500.4050, L100.0500 #### [facility] [address] [place], [address] WBC Normal 4.4-11.0 [facility] Comment on above: Order Comment: 310.2 Result Comment: KELLY JAIN @610. TRY 09/04/25 Performed By: #### L 500.4050, L100.0500 #### [facility] [address] [place], [address] Comprehensive Metabolic Prof iljose d 09-03-2025 ALB Normal 3.4-4.8 [facility] Comment on above: Order Comment: 310.2 Result Comment: KELLY TOLD SUSY @610. TRY 09/04/25 Performed By: #### L 500.4050, L100.0500 #### [facility] [address] [place], [address] ALK PHOS Normal 35-104 [facility] Comment on above: Order Comment: 310.2 Result Comment: UTO TOLD SUSY @610. TRY 09/04/25 Performed By: #### L 500.4050, L100.0500 #### [facility] [address] [place], [address] ALT Normal <=34 [facility] Comment on above: Order Comment: 310.2 Result Comment: UTO TOLD SUSY @610. TRY 09/04/25 Performed By: #### L 500.4050, L100.0500 #### [facility] [address] [place], [address] AST Normal <=31 [facility] Comment on above: Order Comment: 310.2 Result Comment: KELLY TOLD SUSY @610. TRY 09/04/25 Performed By: #### L 500.4050, L100.0500 #### [facility] [address] [place], [address] BUN Normal 4-19 [facility] Comment on above: Order Comment: 310.2 Result Comment: KELLY TOLD SUSY @610. TRY 09/04/25 Performed By: #### L 500.4050, L100.0500 #### [facility] [address] [place], [address] BUN/CRE Normal 10-20 [facility] Comment on above: Order Comment: 310.2 Result Comment: UTO TOLD SUSY @610. TRY 09/04/25 Performed By: #### L 500.4050, L100.0500 #### [facility] [address] [place], [address] Calcium Normal 7.6-11.0 [facility] Comment on above: Order Comment: 310.2 Result Comment: KELLY JAIN @610. TRY 09/04/25 Performed By: #### L 500.4050, L100.0500 #### [facility] [address] [place], [address] CL Normal 98-108 [facility] Comment on above: Order Comment: 310.2 Result Comment: KELLY JAIN @610. TRY 09/04/25 Performed By: #### L 500.4050, L100.0500 #### [facility] [address] [place], [address] CO2 Normal 21.0-32.0 [facility] Comment on above: Order Comment: 310.2 Result Comment: KELLY JAIN @610. TRY 09/04/25 Performed By: #### L 500.4050, L100.0500 #### [facility] [address] [place], [address] CREAT,SERUM Normal 0.70-1.20 [facility] Comment on above: Order Comment: 310.2 Result Comment: KELLY JAIN @610. TRY 09/04/25 Performed By: #### L 500.4050, L100.0500 #### [facility] [address] [place], [address] eGFR Normal >60 [facility] Comment on above: Order Comment: 310.2 Result Comment: KELLY JAIN @610. TRY 09/04/25 Performed By: #### L 500.4050, L100.0500 #### [facility] [address] [place], [address] GAP Normal 5-15 [facility] Comment on above: Order Comment: 310.2 Result Comment: KELLY JAIN @610. TRY 09/04/25 Performed By: #### L 500.4050, L100.0500 #### [facility] [address] [place], [address] GLU Normal 70-99 [facility] Comment on above: Order Comment: 310.2 Result Comment: KELLY JAIN @610. TRY 09/04/25 Performed By: #### L 500.4050, L100.0500 #### [facility] [address] [place], [address] Potassium Normal 3.3-5.1 [facility] Comment on above: Order Comment: 310.2 Result Comment: KELLY JAIN @610. TRY 09/04/25 Performed By: #### L 500.4050, L100.0500 #### [facility] [address] [place], [address] T BILI Normal 0.00-1.30 [facility] Comment on above: Order Comment: 310.2 Result Comment: KELLY JAIN @610. TRY 09/04/25 Performed By: #### L 500.4050, L100.0500 #### [facility] [address] [place], [address] T PROT Normal 5.9-8.4 [facility] Comment on above: Order Comment: 310.2 Result Comment: KELLY JAIN @610. TRY 09/04/25 Performed By: #### L 500.4050, L100.0500 #### [facility] [address] [place], [address] Comprehensive Metabolic Profil Normal 133-145 [facility] Comment on above: Order Comment: 310.2 Result Comment: KELLY JAIN @610. TRY 09/04/25 Performed By: #### L 500.4050, L100.0500 #### [facility] [address] [place], [address] CBC panel Auto (Bld)on 10-31 Erythrocyte distribution width (RBC) [Ratio] 14.4 % Normal 11.5-14.5 [facility] Comment on above: Performed By: #### 1 9123-9 #### BEVERLEY Poe ([id number]) [facility] ([facility]) [id number] [place] [address] Hematocrit (Bld) [Volume fraction] 33.5 % Low 36.0-46.0 [facility] Comment on above: Performed By: #### 1 9123-9 #### BEVERLEY Poe ([id number]) [facility] ([facility]) [address] [place] [address] Hemoglobin (Bld) [Mass/Vol] 10.0 g/dL Low 12.0-16.0 [facility] Comment on above: Performed By: #### 1 9123-9 #### BEVERLEY Poe ([id number]) [facility] ([facility]) [id number] [place] [address] MCH (RBC) [Entitic mass] 31.2 pg Normal 26.0-34.0 [facility] Comment on above: Performed By: #### 1 9123-9 #### BEVERLEY Poe ([id number]) [facility] ([facility]) [id number] [place] [address] MCHC (RBC) [Mass/Vol] 29.9 g/dL Low 32.0-36.0 [facility] Comment on above: Performed By: #### 1 9123-9 #### BEVERLEY Poe ([id number]) [facility] ([facility]) [id number] [place] [address] MCV (RBC) [Entitic vol] 104 fL High 80-100 [facility] Comment on above: Performed By: #### 1 9123-9 #### BEVERLEY Poe ([id number]) [facility] ([facility]) [id number] [place] [address] Nucleated RBC/100 WBC (Bld) [Ratio] 0.0 /100 WBCs Normal 0.0-0.0 [facility] Comment on above: Performed By: #### 1 9123-9 #### BEVERLEY Poe ([id number]) [facility] ([facility]) [id number] [place] [address] Platelets (Bld) [#/Vol] 112 x10*3/uL Low 150-450 [facility] Comment on above: Performed By: #### 1 9123-9 #### BEVERLEY Poe ([id number]) [facility] ([facility]) [id number] [place] [address] RBC (Bld) [#/Vol] 3.21 x10*6/uL Low 4.00-5.20 [facility] Comment on above: Performed By: #### 1 9123-9 #### BEVERLEY Poe ([id number]) [facility] ([facility]) [address] [place] [address] WBC (Bld) [#/Vol] 4.6 x10*3/uL Normal 4.4-11.3 [facility] Comment on above: Performed By: #### 1 9123-9 #### BEVERLEY Poe ([id number]) [facility] ([facility]) [address] [place] [address] Comprehensive metabolic 2000 panelon 10-31-2023 Albumin BCP dye [Mass/Vol] 3.6 g/dL Normal 3.4-5.0 [facility] Comment on above: Performed By: #### 1 9123-9 #### BEVERLEY Poe ([id number]) [facility] ([facility]) [id number] [place] [address] ALP [Catalytic activity/Vol] 58 U/L Normal 33-136 [facility] Comment on above: Performed By: #### 1 9123-9 #### BEVERLEY Poe ([id number]) [facility] ([facility]) [id number] [place] [address] ALT With P-5'-P [Catalytic activity/Vol] 16 U/L Normal 7-45 [facility] Comment on above: Result Comment: Ирина ents treated with Sulfasalazine may generate falsely decreased results for ALT. Performed By: #### 1 9123-9 #### BEVERLEY Poe ([id number]) [facility] ([facility]) [address] [place] [address] Anion gap [Moles/Vol] 8 mmol/L Low 10-20 [facility] Comment on above: Performed By: #### 1 9123-9 #### BEVERLEY Poe ([id number]) [facility] ([facility]) [address] [place] [address] AST With P-5'-P [Catalytic activity/Vol] 14 U/L Normal 9-39 [facility] Comment on above: Performed By: #### 1 9123-9 #### BEVERLEY Poe ([id number]) [facility] ([facility]) [address] [place] [address] Bilirubin [Mass/Vol] 0.5 mg/dL Normal 0.0-1.2 [facility] Comment on above: Performed By: #### 1 9123-9 #### BEVERLEY Poe ([id number]) [facility] ([facility]) [address] [place] [address] Calcium [Mass/Vol] 9.3 mg/dL Normal 8.6-10.6 [facility] Comment on above: Performed By: #### 1 9123-9 #### BEVERLEY Poe ([id number]) [facility] ([facility]) [address] [place] [address] Chloride [Moles/Vol] 99 mmol/L Normal 98-107 [facility] Comment on above: Performed By: #### 1 9123-9 #### BEVERLEY Poe ([id number]) [facility] ([facility]) [address] [place] [address] CO2 [Moles/Vol] 42 mmol/L Critically high 21-32 [facility] Comment on above: Performed By: #### 1 9123-9 #### BEVERLEY Poe ([id number]) [facility] ([facility]) [address] [place] [address] Creatinine [Mass/Vol] 0.48 mg/dL Low 0.50-1.05 [facility] Comment on above: Performed By: #### 1 9123-9 #### BEVERLEY Poe ([id number]) [facility] ([facility]) [id number] [place] [address] GFR/1.73 sq M.predicted MDRD (S/P/Bld) [Vol rate/Area] mL/min/{1.73_m2} Normal >60 [facility] Comment on above: Result Comment: Calc ulations of estimated GFR are performed using the 2020 CKD-EPI Study Refit equation without the race variable for the IDMS-Traceable creatinine methods. https://jasn.asnjournals.org/content/early//ASN.12205 20927 Performed By: #### 1 9123-9 #### BEVERLEY Poe ([id number]) [facility] ([facility]) [id number] [place] [address] Glucose [Mass/Vol] 82 mg/dL Normal 74-99 [facility] Comment on above: Performed By: #### 1 9123-9 #### BEVERLEY Poe ([id number]) [facility] ([facility]) [address] [place] [address] Potassium [Moles/Vol] 4.3 mmol/L Normal 3.5-5.3 [facility] Comment on above: Performed By: #### 1 9123-9 #### BEVERLEY Poe ([id number]) [facility] ([facility]) [id number] [place] [address] Protein [Mass/Vol] 6.8 g/dL Normal 6.4-8.2 [facility] Comment on above: Performed By: #### 1 9123-9 #### BEVERLEY Poe ([id number]) [facility] ([facility]) [address] [place] [address] Sodium [Moles/Vol] 145 mmol/L Normal 136-145 [facility] Comment on above: Performed By: #### 1 9123-9 #### BEVERLEY CARSONER L ([id number]) [facility] ([facility]) [address] [place] [address] Urea nitrogen [Mass/Vol] 21 mg/dL Normal 6-23 [facility] Comment on above: Performed By: #### 1 9123-9 #### BEVERLEY DODD L ([id number]) [facility] ([facility]) [id number] [place] [address] Natriuretic peptide B [Mass/ Vol]on 10-31-2023 Interpretation and review of laboratory results Normal [facility] Natriuretic peptide B (Bld) [Mass/Vol] 98 pg/mL 0 - 99 pg/mL [facility] <100 pg/mL - Heart failure unlikely 100-299 [...] contact their local laboratory for further information. [facility] Natriuretic peptide B (Bld) [Mass/Vol] 98 pg/mL Normal 0-99 [facility] Comment on above: Order Comment: <100 pg/mL - Heart failure [id number] pg/mL - Intermediate probability of acute heart [...] #### 1 9123-9 #### BEVERLEY DODD L ([id number]) [facility] ([facility]) [address] [place] [address] Blood type and Indirect anti body screen panel (Bld)on 10-28-2023 ABO group Nom (Bld) O Normal [facility] Comment on above: Performed By: #### 1 9123-9 #### BEVERLEY Poe ([id number]) [facility] ([facility]) [address] [place] [address] 14580 Blood group antibody screen Ql Negative [facility] Comment on above: Performed By: #### 1 9123-9 #### BEVERLEY Poe ([id number]) [facility] ([facility]) [address] [place] [address] 58431 D Ag Ql (Bld) Positive [facility] Comment on above: Performed By: #### 1 9123-9 #### BEVERLEY Poe ([id number]) [facility] ([facility]) [address] [place] [address]31[address] CBC W Auto Differential pane l (Bld)on 10-28-2023 Basophils (Bld) [#/Vol] 0.01 x10*3/uL Normal 0.00-0.10 [facility] Comment on above: Performed By: #### 1 9123-9 #### BEVERLEY Poe ([id number]) [facility] ([facility]) [address] [place] [address]293 Basophils/100 WBC (Bld) 0.3 % Normal 0.0-2.0 [facility] Comment on above: Performed By: #### 1 9123-9 #### BEVERLEY DODD L ([id number]) [facility] ([facility]) [address] [place] [address] Eosinophils (Bld) [#/Vol] 0.05 x10*3/uL Normal 0.00-0.40 [facility] Comment on above: Performed By: #### 1 9123-9 #### BEVERLEY Poe ([id number]) [facility] ([facility]) [address] [place] [address] Eosinophils/100 WBC (Bld) 1.3 % Normal 0.0-6.0 [facility] [facility] Comment on above: Performed By: #### 1 9123-9 #### BEVERLEY Poe ([id number]) [facility] ([facility]) [address] [place] [address] 19615 Erythrocyte distribution width (RBC) [Ratio] 14.5 % Normal 11.5-14.5 [facility] Comment on above: Performed By: #### 1 9123-9 #### BEVERLEY Poe ([id number]) [facility] ([facility]) [address] [place] [address] 07718 Hematocrit (Bld) [Volume fraction] 32.3 % Low 36.0-46.0 [facility] Comment on above: Performed By: #### 1 9123-9 #### BEVERLEY Poe ([id number]) [facility] ([facility]) [address] [place] [address] 04174 Hemoglobin (Bld) [Mass/Vol] 9.5 g/dL Low 12.0-16.0 [facility] Comment on above: Performed By: #### 1 9123-9 #### BEVERLEY Poe ([id number]) [facility] ([facility]) [address] [place] [address] 70491 Immature granulocytes (Bld) [#/Vol] 0.02 x10*3/uL Normal 0.00-0.50 [facility] Comment on above: Performed By: #### 1 9123-9 #### BEVERLEY Poe ([id number]) [facility] ([facility]) [address] [place] [address] 44570 Immature granulocytes/100 WBC (Bld) 0.5 % Normal 0.0-0.9 [facility] Comment on above: Result Comment: Sharad ture Granulocyte Count (IG) includes promyelocytes, myelocytes and metamyelocytes but does not include bands. Percent differential counts (%) should be interpreted in the context of the absolute cell counts (cells/UL). Performed By: #### 1 9123-9 #### BEVERLEY Poe ([id number]) [facility] ([facility]) [address] [place] [address] 36362 Lymphocytes (Bld) [#/Vol] 0.64 x10*3/uL Low 0.80-3.00 [facility] Comment on above: Performed By: #### 1 9123-9 #### BEVERLEY Poe ([id number]) [facility] ([facility]) [address] [place] [address] 06582 Lymphocytes/100 WBC (Bld) 16.0 % Normal 13.0-44.0 [facility] Comment on above: Performed By: #### 1 9123-9 #### BEVERLEY Poe ([id number]) [facility] ([facility]) [address] [place] [address] 14711 MCH (RBC) [Entitic mass] 30.2 pg Normal 26.0-34.0 [facility] Comment on above: Performed By: #### 1 9123-9 #### BEVERLEY Poe ([id number]) [facility] ([facility]) [address] [place] [address] 87160 MCHC (RBC) [Mass/Vol] 29.4 g/dL Low 32.0-36.0 [facility] Comment on above: Performed By: #### 1 9123-9 #### BEVERLEY Poe ([id number]) [facility] ([facility]) [address] [place] [address] 64105 MCV (RBC) [Entitic vol] 103 fL High 80-100 [facility] Comment on above: Performed By: #### 1 9123-9 #### BEVERLEY Poe ([id number]) [facility] ([facility]) [address] [place] [address] 32865 Monocytes (Bld) [#/Vol] 0.23 x10*3/uL Normal 0.05-0.80 [facility] Comment on above: Performed By: #### 1 9123-9 #### BEVERLEY Poe ([id number]) [facility] ([facility]) [address] [place] [address] [place] [address] Monocytes/100 WBC (Bld) 5.8 % Normal 2.0-10.0 [facility] Comment on above: Performed By: #### 1 9123-9 #### BEVERLEY Poe ([id number]) [facility] ([facility]) [address] [place] [address] Neutrophils (Bld) [#/Vol] 3.04 x10*3/uL Normal 1.60-5.50 [facility] Comment on above: Result Comment: Perc ent differential counts (%) should be interpreted in the context of the absolute cell counts (cells/uL). Performed By: #### 1 9123-9 #### BEVERLEY Poe ([id number]) [facility] ([facility]) [id number] [place] [address] 71205 Neutrophils/100 WBC (Bld) 76.1 % Normal 40.0-80.0 [facility] Comment on above: Performed By: #### 1 9123-9 #### BEVERLEY Poe ([id number]) [facility] ([facility]) [id number] [place] [address] 04518 Nucleated RBC/100 WBC (Bld) [Ratio] 0.0 /100 WBCs Normal 0.0-0.0 [facility] Comment on above: Performed By: #### 1 9123-9 #### BEVERLEY Poe ([id number]) [facility] ([facility]) [address] [place] [address] Platelets (Bld) [#/Vol] 107 x10*3/uL Low 150-450 [facility] Comment on above: Performed By: #### 1 9123-9 #### BEVERLEY Poe ([id number]) [facility] ([facility]) [id number] [place] [address] 26098 RBC (Bld) [#/Vol] 3.15 x10*6/uL Low 4.00-5.20 [facility] Comment on above: Performed By: #### 1 9123-9 #### BEVERLEY Poe ([id number]) [facility] ([facility]) [address] [place] [address] WBC (Bld) [#/Vol] 4.0 x10*3/uL Low 4.4-11.3 [facility] Comment on above: Performed By: #### 1 9123-9 #### BEVERLEY Poe ([id number]) [facility] ([facility]) [address] [place] [address] Comprehensive metabolic 2000 panelon 10-28-2023 Albumin BCP dye [Mass/Vol] 3.6 g/dL Normal 3.4-5.0 [facility] Comment on above: Performed By: #### 1 9123-9 #### BEVERLEY Poe ([id number]) [facility] ([facility]) [id number] [place] [address] 29953 ALP [Catalytic activity/Vol] 66 U/L Normal 33-136 [facility] Comment on above: Performed By: #### 1 9123-9 #### BEVERLEY Poe ([id number]) [facility] ([facility]) [address] [place] [address] ALT With P-5'-P [Catalytic activity/Vol] 18 U/L Normal 7-45 [facility] Comment on above: Result Comment: Ирина ents treated with Sulfasalazine may generate falsely decreased results for ALT. Performed By: #### 1 9123-9 #### BEVERLEY Poe ([id number]) [facility] ([facility]) [address] [place] [address] Anion gap [Moles/Vol] 9 mmol/L Low 10-20 [facility] Comment on above: Performed By: #### 1 9123-9 #### BEVERLEY Poe ([id number]) [facility] ([facility]) [address] [place] [address] AST With P-5'-P [Catalytic activity/Vol] 16 U/L Normal 9-39 [facility] Comment on above: Performed By: #### 1 9123-9 #### BEVERLEY Poe ([id number]) [facility] ([facility]) [address] [place] [address] Bilirubin [Mass/Vol] 0.6 mg/dL Normal 0.0-1.2 [facility] Comment on above: Performed By: #### 1 9123-9 #### BEVERLEY CARSONER L ([id number]) [facility] ([facility]) [address] [place] [address] Calcium [Mass/Vol] 9.4 mg/dL Normal 8.6-10.6 [facility] Comment on above: Performed By: #### 1 9123-9 #### BEVERLEY CARSONER L ([id number]) [facility] ([facility]) [address] [place] [address] Chloride [Moles/Vol] 100 mmol/L Normal 98-107 [facility] Comment on above: Performed By: #### 1 9123-9 #### BEVERLEY PATELTZER L ([id number]) [facility] ([facility]) [address] [place] [address] CO2 [Moles/Vol] 43 mmol/L Critically high 21-32 [facility] Comment on above: Performed By: #### 1 9123-9 #### BEVERLEY DODD L ([id number]) [facility] ([facility]) [address] [place] [address] Creatinine [Mass/Vol] 0.62 mg/dL Normal 0.50-1.05 [facility] Comment on above: Performed By: #### 1 9123-9 #### BEVERLEY PATELTZER L ([id number]) [facility] ([facility]) [address] [place] [address] GFR/1.73 sq M.predicted MDRD (S/P/Bld) [Vol rate/Area] mL/min/{1.73_m2} Normal >60 [facility] Comment on above: Result Comment: Calc ulations of estimated GFR are performed using the 2020 CKD-EPI Study Refit equation without the race variable for the IDMS-Traceable creatinine methods. https://brunasn.priscillajournals.org/content//ASN.29348 82660 Performed By: #### 1 9123-9 #### BEVERLEY Poe ([id number]) [facility] ([facility]) [id number] [place] [address] 12172 Glucose [Mass/Vol] 101 mg/dL High 74-99 [facility] Comment on above: Performed By: #### 1 9123-9 #### BEVERLEY Poe ([id number]) [facility] ([facility]) [id number] [place] [address] 87294 Potassium [Moles/Vol] 4.5 mmol/L Normal 3.5-5.3 [facility] Comment on above: Performed By: #### 1 9123-9 #### BEVERLEY Poe ([id number]) [facility] ([facility]) [address] [place] [address] 68077 Protein [Mass/Vol] 7.0 g/dL Normal 6.4-8.2 [facility] Comment on above: Performed By: #### 1 9123-9 #### BEVERLEY Poe ([id number]) [facility] ([facility]) [address] [place] [address] 51842 Sodium [Moles/Vol] 147 mmol/L High 136-145 [facility] Comment on above: Performed By: #### 1 9123-9 #### BEVERLEY Poe ([id number]) [facility] ([facility]) [address] [place] [address] 36383 Urea nitrogen [Mass/Vol] 19 mg/dL Normal 6-23 [facility] Comment on above: Performed By: #### 1 9123-9 #### BEVERLEY Poe ([id number]) [facility] ([facility]) [address] [place] [address] 75669 ECG 12-LEADon 10-28-2023 ECG 12-LEAD Ventricular Rate 76 Atrial Rate 76 P-R Interval 156 QRS Duration 132 Q-T Interval 428 QTC Calculation(Bazett) 481 P [place] 57 R [place] -49 T [place] 51 QRS Count 12 Q Onset 210 [...] [place] ([id number]) on 11/11/2023 6:42:46 PM Normal [facility] Prealbuminon 10-28-2023 Prealbumin [Mass/Vol] 18.4 mg/dL Normal 18.0-40.0 [facility] Comment on above: Performed By: #### 1 9123-9 #### BEVERLEY Poe ([id number]) [facility] ([facility]) [address] [place] [address] Staphylococcus aureus.methic illin resistant isolateon 10-28-2023 MRSA isol Org specific cx Ql (Nose) Test: Staphylococcus aureus/MRSA colonization, Culture Specimen Source: Anterior Nares Specimen Type: Swab Specimen Date: 10/28/2023 9:56 AM Result Date: 10/29/2023 1:28 PM Result Status: Final result Abnormal: No Resulting Lab: [facility] [address] [place] [address] CULTURE No Staphylococcus aureus isolated [facility] Comment on above: Performed By: #### 1 9123-9 #### BEVERLEY Poe ([id number]) [facility] ([facility]) [address] [place] [address] Basophil percentageOrdered B y: Jonathanfausto Dillard on 10-11-2023 Bilirubin [Mass/Vol] 0.30 mg/dL 0.20-1.00 [facility] Comment on above: For patients on eltr ombopag therapy, use of Dimension [place] TBIL is not recommended. Chloride [Moles/Vol] 101 mmol/L 98-107 [facility] Glucose [Mass/Vol] 102 mg/dL 74-106 [facility] Comment on above: Fasting Glucose resu lt from 100 to 125 mg/dL suggests IMPAIRED HOMEOSTASIS per A.D.A. criteria. Potassium [Moles/Vol] 3.7 mmol/L 3.5-5.1 [facility] Protein [Mass/Vol] 6.4 g/dL 6.4-8.2 [facility] Sodium [Moles/Vol] 144 mmol/L 136-145 [facility] WBC (Bld) [#/Vol] 3.3 10*3/uL 4.4-11.0 [facility] Blood erythrocytes count (nu mber/volume)Ordered By: Jonathan Dillard on 10-11-2023 RBC (Bld) [#/Vol] 2.77 10*6/uL 4.2-5.4 [facility] Blood hemoglobin measurement (mass/volume)Ordered By: Jonathan Dillard on 10-11-2023 Hemoglobin (Bld) [Mass/Vol] 8.2 g/dL 12.0-15.0 [facility] Blood platelet mean volumeOr dered By: Jonathan Dillard on 10-11-2023 Platelet mean volume (Bld) [Entitic vol] 8.8 fL 6.2-12.0 [facility] Determination of erythrocyte mean corpuscular volume (MCV)Ordered By: Jonathan Dillard on 10-11-2023 MCV (RBC) [Entitic vol] 105.8 fL 81-99 [facility] Hematocrit Auto (Bld) [Volum e fraction]Ordered By: Jonathan Dillard on 10-11-2023 Hematocrit (Bld) [Volume fraction] 29.3 % 37-47 [facility] Laboratory - Chemistry and C hemistry - challengeOrdered By: Jonathan Dillard on 10-11-2023 ALP [Catalytic activity/Vol] 51 U/L 45-117 [facility] ALT [Catalytic activity/Vol] 18 U/L 13-56 [facility] CO2 [Moles/Vol] 41.0 mmol/L 21.0-32.0 [facility] Globulin (S) [Mass/Vol] 4.1 g/dL 2.2-4.2 [facility] Urea nitrogen/Creatinine [Mass ratio] 36.1 mg/mg 10-20 [facility] Laboratory - Hematology and Cell countsOrdered By: Jonathan Dillard on 10-11-2023 Erythrocyte distribution width (RBC) [Entitic vol] 54.5 fL 35.1-43.9 [facility] Erythrocyte distribution width (RBC) [Ratio] 14.0 % 11.6-14.6 [facility] MCH (RBC) [Entitic mass] 29.6 pg 27.0-32.0 [facility] MCHC Auto (RBC) [Mass/Vol]Or dered By: Jonathan Dillard on 10-11-2023 MCHC (RBC) [Mass/Vol] 28.0 g/dL 32-36 [facility] No Panel InformationOrdered By: Jonathan Dillard on 10-11-2023 Estimated GFR (MDRD) Amer 156 mL/min >60 [facility] Comment on above: GFR Calc Estimated GFR (MDRD) Non-Af Amer 129 mL/min >60 [facility] Comment on above: Non- GFR Calc Platelets bldOrdered By: Mervat Dillard on 10-11-2023 Platelets (Bld) [#/Vol] 116 10*3/uL 150-450 [facility] Serum or plasma albumin celina urement (mass/volume)Ordered By: Jonathan Dillard on 10-11-2023 Albumin [Mass/Vol] 2.3 g/dL 3.2-5.0 [facility] Serum or plasma albumin/glob ulin mass ratioOrdered By: Jonathan Dillard on 10-11-2023 Albumin/Globulin [Mass ratio] 0.6 {ratio} 0.9-2.4 [facility] Serum or plasma calcium celina urement (mass/volume)Ordered By: Jonathan Dillard on 10-11-2023 Calcium [Mass/Vol] 7.8 mg/dL 8.5-10.1 [facility] Serum or plasma creatinine m easurement (mass/volume)Ordered By: Jonathan Dillard on 10-11-2023 Creatinine [Mass/Vol] 0.50 mg/dL 0.55-1.02 [facility] Comment on above: The validity of the calculated GFR & GFRAA in patients over 70 years has not been determined. Clinical correlation is essential. Serum or plasma urea nitroge n measurement (mass/volume)Ordered By: Jonathan Dillard on 10-11-2023 Urea nitrogen [Mass/Vol] 18 mg/dL 7-18 [facility] Thin prep Papanicolaou smear with manual screeningOrdered By: Jonathan Dillard on 10-11-2023 Thin prep Papanicolaou smear with manual screening 14 U/L 15-37 [facility] Thin prep Papanicolaou smear with manual screening 2 5-15 [facility] Laboratory - Chemistry and C hemistry - challengeOrdered By: Jonathan Dlilard on 10-04-2023 Cobalamin (Vitamin B12) [Mass/Vol] 926 pg/mL 211-911 [facility] Basophil percentageOrdered B y: Jonathan Dillard on 10-03-2023 Bilirubin [Mass/Vol] 0.40 mg/dL 0.20-1.00 [facility] Comment on above: For patients on eltr ombopag therapy, use of Dimension [place] TBIL is not recommended. Chloride [Moles/Vol] 103 mmol/L 98-107 [facility] Cholesterol [Mass/Vol] 112 mg/dL <200 [facility] Comment on above: <200 mg/dL Desirable 200-240 mg/dL Borderline >240 mg/dL High Risk Glucose [Mass/Vol] 133 mg/dL 74-106 [facility] Comment on above: Fasting Glucose resu lt greater than or equal to 126 mg/dL suggests DIABETES MELLITUS per A.D.A. criteria. Potassium [Moles/Vol] 3.8 mmol/L 3.5-5.1 [facility] Protein [Mass/Vol] 6.2 g/dL 6.4-8.2 [facility] Sodium [Moles/Vol] 144 mmol/L 136-145 [facility] Triglyceride [Mass/Vol] 156 mg/dL <199 [facility] Comment on above: The drugs N-Acetylcy steine and Metamizole may falsely depress this assay.Serum Triglycerides Reference Interval Normal <150 mg/dL Borderline high 150 - 199 mg/dL High 200 - 499 mg/dL Very High > or = 500 mg/dL WBC (Bld) [#/Vol] 3.6 10*3/uL 4.4-11.0 [facility] Blood erythrocytes count (nu mber/volume)Ordered By: Jonathan Dillard on 10-03-2023 RBC (Bld) [#/Vol] 2.77 10*6/uL 4.2-5.4 [facility] Blood hemoglobin measurement (mass/volume)Ordered By: Jonathan Dillard on 10-03-2023 Hemoglobin (Bld) [Mass/Vol] 8.2 g/dL 12.0-15.0 [facility] Blood platelet mean volumeOr dered By: Jonathan Dillard on 10-03-2023 Platelet mean volume (Bld) [Entitic vol] 9.3 fL 6.2-12.0 [facility] Determination of erythrocyte mean corpuscular volume (MCV)Ordered By: Jonathan Dillard on 10-03-2023 MCV (RBC) [Entitic vol] 104.0 fL 81-99 [facility] Hematocrit Auto (Bld) [Volum e fraction]Ordered By: Jonathan Dillard on 10-03-2023 Hematocrit (Bld) [Volume fraction] 28.8 % 37-47 [facility] Laboratory - Chemistry and C hemistry - challengeOrdered By: Jonathan Dillard on 10-03-2023 ALP [Catalytic activity/Vol] 42 U/L 45-117 [facility] ALT [Catalytic activity/Vol] 16 U/L 13-56 [facility] CO2 [Moles/Vol] 40.0 mmol/L 21.0-32.0 [facility] Globulin (S) [Mass/Vol] 3.9 g/dL 2.2-4.2 [facility] Urea nitrogen/Creatinine [Mass ratio] 35.6 mg/mg 10-20 [facility] Laboratory - Hematology and Cell countsOrdered By: Jonathan Dillard on 10-03-2023 Erythrocyte distribution width (RBC) [Entitic vol] 54.0 fL 35.1-43.9 [facility] Erythrocyte distribution width (RBC) [Ratio] 14.2 % 11.6-14.6 [facility] MCH (RBC) [Entitic mass] 29.6 pg 27.0-32.0 [facility] MCHC Auto (RBC) [Mass/Vol]Or dered By: Jonathan Dillard on 10-03-2023 MCHC (RBC) [Mass/Vol] 28.5 g/dL 32-36 [facility] No Panel InformationOrdered By: Jonathan Dillard on 10-03-2023 Estimated GFR (MDRD) Amer 153 mL/min >60 [facility] Comment on above: GFR Calc Estimated GFR (MDRD) Non-Af Amer 127 mL/min >60 [facility] Comment on above: Non- GFR Calc Platelets bldOrdered By: Mervat Dillard on 10-03-2023 Platelets (Bld) [#/Vol] 104 10*3/uL 150-450 [facility] Serum or plasma albumin celina urement (mass/volume)Ordered By: Jonathan Dillard on 10-03-2023 Albumin [Mass/Vol] 2.3 g/dL 3.2-5.0 [facility] Serum or plasma albumin/glob ulin mass ratioOrdered By: Jonathan Dillard on 10-03-2023 Albumin/Globulin [Mass ratio] 0.6 {ratio} 0.9-2.4 [facility] Serum or plasma calcium celina urement (mass/volume)Ordered By: Jonathan Dillard on 10-03-2023 Calcium [Mass/Vol] 8.4 mg/dL 8.5-10.1 [facility] Serum or plasma cholesterol in HDL measurement (mass/volume)Ordered By: Jonathan Dillard on 10-03-2023 Cholesterol in HDL [Mass/Vol] 41 mg/dL >40 [facility] Comment on above: The drugs N-Acetylcy steine and Metamizole may falsely depress this assay. Reference Range HDL <40 mg/dL Low HDL Cholesterol HDL >or= 60 mg/dL High HDL Cholesterol Serum or plasma cholesterol in VLDL measurement (mass/volume)Ordered By: Jonathan Dillard on 10-03-2023 Cholesterol in VLDL [Mass/Vol] 31 mg/dL 5-40 [facility] Serum or plasma creatinine m easurement (mass/volume)Ordered By: Jonathan Dillard on 10-03-2023 Creatinine [Mass/Vol] 0.51 mg/dL 0.55-1.02 [facility] Comment on above: The validity of the calculated GFR & GFRAA in patients over 70 years has not been determined. Clinical correlation is essential. Serum or plasma low density lipoprotein (LDL) cholesterol measurement (mass/volume)Ordered By: Jonathan Dillard on 10-03-2023 Cholesterol in LDL [Mass/Vol] 40 mg/dL 0-130 [facility] Serum or plasma urea nitroge n measurement (mass/volume)Ordered By: Jonathan Dillard on 10-03-2023 Urea nitrogen [Mass/Vol] 18 mg/dL 7-18 [facility] Thin prep Papanicolaou smear with manual screeningOrdered By: Jonathan Dillard on 10-03-2023 Thin prep Papanicolaou smear with manual screening 15 U/L 15-37 [facility] Thin prep Papanicolaou smear with manual screening 1 5-15 [facility] Whole blood hemoglobin A1c/t otal hemoglobin ratio (mass fraction)Ordered By: Jonathan Dillard on 10-03-2023 HbA1c (Bld) [Mass fraction] % 3.8-5.6 [facility] Comment on above: Normal < 5.7 % Predi abetic 5.7 - 6.4 % Diabetic >or= 6.5 % Please note range changes. CBC panel Auto (Bld)on 09-28 Erythrocyte distribution width (RBC) [Ratio] 14.0 % 11.5 - 14.5 % [facility] Hematocrit (Bld) [Volume fraction] 28.8 % Low 36.0 - 46.0 % [facility] Hemoglobin (Bld) [Mass/Vol] 8.4 g/dL Low 12.0 - 16.0 g/dL [facility] Interpretation and review of laboratory results Abnormal [facility] MCH (RBC) [Entitic mass] 30.1 pg 26.0 - 34.0 pg [facility] MCHC (RBC) [Mass/Vol] 29.2 g/dL Low 32.0 - 36.0 g/dL [facility] MCV (RBC) [Entitic vol] 103 fL High 80 - 100 fL [facility] Nucleated RBC/100 WBC (Bld) [Ratio] 0.0 % [facility] Platelets (Bld) [#/Vol] 113 10*3/uL Low [facility] RBC (Bld) [#/Vol] 2.79 10*6/uL [facility] WBC (Bld) [#/Vol] 3.5 10*3/uL [facility] Erythrocyte distribution width (RBC) [Ratio] 14.0 % Normal 11.5-14.5 [facility] Comment on above: Performed By: #### 1 9123-9 #### BEVERLEY Poe ([id number]) [facility] ([facility]) [address] [place] [address] Hematocrit (Bld) [Volume fraction] 28.8 % Low 36.0-46.0 [facility] Comment on above: Performed By: #### 1 9123-9 #### BEVERLEY Poe ([id number]) [facility] ([facility]) [address] [place] [address] 28198 Hemoglobin (Bld) [Mass/Vol] 8.4 g/dL Low 12.0-16.0 [facility] Comment on above: Performed By: #### 1 9123-9 #### BEVERLEY Poe ([id number]) [facility] ([facility]) [address] [place] [address] 92828 MCH (RBC) [Entitic mass] 30.1 pg Normal 26.0-34.0 [facility] Comment on above: Performed By: #### 1 9123-9 #### BEVERLEY Poe ([id number]) [facility] ([facility]) [address] [place] [address]656 MCHC (RBC) [Mass/Vol] 29.2 g/dL Low 32.0-36.0 [facility] [facility] Comment on above: Performed By: #### 1 9123-9 #### BEVERLEY Poe ([id number]) [facility] ([facility]) [address] [place] [address] 72013 MCV (RBC) [Entitic vol] 103 fL High 80-100 [facility] Comment on above: Performed By: #### 1 9123-9 #### BEVERLEY Poe ([id number]) [facility] ([facility]) [address] [place] [address] Nucleated RBC/100 WBC (Bld) [Ratio] 0.0 /100 WBCs Normal 0.0-0.0 [facility] Comment on above: Performed By: #### 1 9123-9 #### BEVERLEY Poe ([id number]) [facility] ([facility]) [address] [place] [address] Platelets (Bld) [#/Vol] 113 x10*3/uL Low 150-450 [facility] Comment on above: Performed By: #### 1 9123-9 #### BEVERLEY Poe ([id number]) [facility] ([facility]) [id number] [place] [address] 72732 RBC (Bld) [#/Vol] 2.79 x10*6/uL Low 4.00-5.20 [facility] Comment on above: Performed By: #### 1 9123-9 #### BEVERLEY Poe ([id number]) [facility] ([facility]) [id number] [place] [address] 41604 WBC (Bld) [#/Vol] 3.5 x10*3/uL Low 4.4-11.3 [facility] Comment on above: Performed By: #### 1 9123-9 #### BEVERLEY Poe ([id number]) [facility] ([facility]) [id number] [place] [address]32[address] CTA Heart and Coronary arter ies WO and W contrast Jack 09-28-2023 [facility] MM[facility]AL [facility] MMODAL [facility] Work Phone: CTA Heart and Coronary arter ies WO and W contrast IVOrdered By: Yair Pham on 09-28-2023 [facility] Work Phone: Magnesiumon 09-28-2023 Magnesium [Mass/Vol] 2.13 mg/dL Normal 1.60-2.40 [facility] Comment on above: Performed By: #### 1 9123-9 #### BEVERLEY Poe ([id number]) [facility] ([facility]) [address] [place] [address] Renal function 2000 panelon 09-28-2023 Albumin BCP dye [Mass/Vol] 2.9 g/dL Low 3.4-5.0 [facility] Comment on above: Performed By: #### 1 9123-9 #### BEVERLEY Poe ([id number]) [facility] ([facility]) [address] [place] [address] Anion gap [Moles/Vol] 11 mmol/L Normal 10-20 [facility] Comment on above: Performed By: #### 1 9123-9 #### BEVERLEY Poe ([id number]) [facility] ([facility]) [id number] [place] [address] 73562 Calcium [Mass/Vol] 8.9 mg/dL Normal 8.6-10.6 [facility] Comment on above: Performed By: #### 1 9123-9 #### BEVERLEY Poe ([id number]) [facility] ([facility]) [address] [place] [address] 09817 Chloride [Moles/Vol] 100 mmol/L Normal 98-107 [facility] Comment on above: Performed By: #### 1 9123-9 #### BEVERLEY Poe ([id number]) [facility] ([facility]) [address] [place] [address] 26429 CO2 [Moles/Vol] 40 mmol/L Critically high 21-32 [facility] Comment on above: Performed By: #### 1 9123-9 #### BEVERLEY Poe ([id number]) [facility] ([facility]) [address] [place] [address] Creatinine [Mass/Vol] 0.44 mg/dL Low 0.50-1.05 [facility] Comment on above: Performed By: #### 1 9123-9 #### BEVERLEY Poe ([id number]) [facility] ([facility]) [address] [place] [address] 48395 GFR/1.73 sq M.predicted MDRD (S/P/Bld) [Vol rate/Area] mL/min/{1.73_m2} Normal >60 [facility] Comment on above: Result Comment: Calc ulations of estimated GFR are performed using the 2020 CKD-EPI Study Refit equation without the race variable for the IDMS-Traceable creatinine methods. https://jasn.asnjournals.org/content//ASN.52370 22115 Performed By: #### 1 9123-9 #### BEVERLEY Poe ([id number]) [facility] ([facility]) [address] [place] [address] Glucose [Mass/Vol] 143 mg/dL High 74-99 [facility] Comment on above: Performed By: #### 1 9123-9 #### BEVERLEY Poe ([id number]) [facility] ([facility]) [address] [place] [address] Phosphate [Mass/Vol] 2.8 mg/dL Normal 2.5-4.9 [facility] Comment on above: Result Comment: The performance characteristics of phosphorus testing in heparinized plasma have been validated by the individual laboratory site where testing is performed. Testing on heparinized plasma is not approved by the FDA; however, such approval is not necessary. Performed By: #### 1 9123-9 #### BEVERLEY Poe ([id number]) [facility] ([facility]) [address] [place] [address] Potassium [Moles/Vol] 3.8 mmol/L Normal 3.5-5.3 [facility] Comment on above: Performed By: #### 1 9123-9 #### BEVERLEY Poe ([id number]) [facility] ([facility]) [address] [place] [address] Sodium [Moles/Vol] 147 mmol/L High 136-145 [facility] Comment on above: Performed By: #### 1 9123-9 #### BEVERLEY Poe ([id number]) [facility] ([facility]) [address] [place] [address] Urea nitrogen [Mass/Vol] 11 mg/dL Normal 6-23 [facility] Comment on above: Performed By: #### 1 9123-9 #### BEVERLEY Poe ([id number]) [facility] ([facility]) [address] [place] [address] 15848 SARS coronavirus 2 RNAon SARS-CoV-2 (COVID-19) RNA ISA+probe Ql (Resp) Not detected Normal Not Detected [facility] Comment on above: Order Comment: This [...] and has been validated for use at [facility]. Negative results do not preclude COVID-19 infections and should not be used as the sole basis for diagnosis, treatment, or other management decisions. Performed By: #### 1 9123-9 #### BEVERLEY Poe ([id number]) [facility] ([facility]) [address] [place] [address] 85652 SARS-CoV-2 (COVID-19) RNA NA A+probe Ql (Resp)on 09-28-2023 Interpretation and review of laboratory results Normal [facility] SARS-CoV-2 RT PCRon 09-28-20 SARS-CoV-2 (COVID-19) RNA ISA+probe Ql (Resp) Not detected Not Detected [facility] CBC panel Auto (Bld)on 09-27 Erythrocyte distribution width (RBC) [Ratio] 14.3 % 11.5 - 14.5 % [facility] Hematocrit (Bld) [Volume fraction] 28.0 % Low 36.0 - 46.0 % [facility] Hemoglobin (Bld) [Mass/Vol] 8.0 g/dL Low 12.0 - 16.0 g/dL [facility] Interpretation and review of laboratory results Abnormal [facility] MCH (RBC) [Entitic mass] 29.7 pg 26.0 - 34.0 pg [facility] MCHC (RBC) [Mass/Vol] 28.6 g/dL Low 32.0 - 36.0 g/dL [facility] MCV (RBC) [Entitic vol] 104 fL High 80 - 100 fL [facility] Nucleated RBC/100 WBC (Bld) [Ratio] 0.0 % [facility] Platelets (Bld) [#/Vol] 115 10*3/uL Low [facility] RBC (Bld) [#/Vol] 2.69 10*6/uL [facility] WBC (Bld) [#/Vol] 3.2 10*3/uL [facility] Erythrocyte distribution width (RBC) [Ratio] 14.3 % Normal 11.5-14.5 [facility] Comment on above: Performed By: #### 2 341-6 #### BEVERLEY Poe ([id number]) [facility] ([facility]) [address] [place] [address] 86386 Hematocrit (Bld) [Volume fraction] 28.0 % Low 36.0-46.0 [facility] Comment on above: Performed By: #### 2 341-6 #### BEVERLEY Poe ([id number]) [facility] ([facility]) [address] [place] [address] 99736 Hemoglobin (Bld) [Mass/Vol] 8.0 g/dL Low 12.0-16.0 [facility] Comment on above: Performed By: #### 2 341-6 #### BEVERLEY Poe ([id number]) [facility] ([facility]) [address] [place] [address] 32232 MCH (RBC) [Entitic mass] 29.7 pg Normal 26.0-34.0 [facility] Comment on above: Performed By: #### 2 341-6 #### BEVERLEY Poe ([id number]) [facility] ([facility]) [address] [place] [address] MCHC (RBC) [Mass/Vol] 28.6 g/dL Low 32.0-36.0 [facility] Comment on above: Performed By: #### 2 341-6 #### BEVERLEY Poe ([id number]) [facility] ([facility]) [address] [place] [address] MCV (RBC) [Entitic vol] 104 fL High 80-100 [facility] Comment on above: Performed By: #### 2 341-6 #### BEVERLEY Poe ([id number]) [facility] ([facility]) [address] [place] [address] 73985 Nucleated RBC/100 WBC (Bld) [Ratio] 0.0 /100 WBCs Normal 0.0-0.0 [facility] Comment on above: Performed By: #### 2 341-6 #### BEVERLEY Poe ([id number]) [facility] ([facility]) [address] [place] [address] Platelets (Bld) [#/Vol] 115 x10*3/uL Low 150-450 [facility] Comment on above: Performed By: #### 2 341-6 #### BEVERLEY Poe ([id number]) [facility] ([facility]) [address] [place] [address] RBC (Bld) [#/Vol] 2.69 x10*6/uL Low 4.00-5.20 [facility] Comment on above: Performed By: #### 2 341-6 #### BEVERLEY Poe ([id number]) [facility] ([facility]) [address] [place] [address] 56246 WBC (Bld) [#/Vol] 3.2 x10*3/uL Low 4.4-11.3 [facility] Comment on above: Performed By: #### 2 341-6 #### BEVERLEY Poe ([id number]) [facility] ([facility]) [address] [place] [address] Cobalaminson 09-27-2023 Cobalamin (Vitamin B12) [Mass/Vol] 411 pg/mL Normal 211-911 [facility] Comment on above: Performed By: #### 1 9123-9 #### BEVERLEY Poe ([id number]) [facility] ([facility]) [address] [place] [address] 28301 Electrocardiogram, 12-lead P RN ACS symptomsOrdered By: Simon Piedra on 09-27-2023 Atrial Rate 104 BPM [facility] Work Phone: [phone] P [place] 67 degrees [facility] Work Phone: [phone] P Offset 193 ms [facility] Work Phone: [phone] P Onset 137 ms [facility] Work Phone: [phone] LA Interval 150 ms [facility] Work Phone: [phone] Q Onset 212 ms [facility] Work Phone: [phone] QRS Count 17 beats [facility] Work Phone: [phone] QRS Duration 136 ms [facility] Work Phone: [phone] QT Interval 352 ms [facility] Work Phone: [phone] QTC Calculation(Bazett) 462 [facility] Work Phone: [phone] QTC Fredericia 422 ms [facility] Work Phone: [phone] R [place] -54 degrees [facility] Work Phone: [phone] T [place] 70 degrees [facility] Work Phone: [phone] T Offset 388 ms [facility] Work Phone: [phone] Ventricular Rate 104 BPM [facility] Work Phone: [phone] [facility] Work Phone: [phone] Electrocardiogram, 12-lead P RN ACS symptomson 09-27-2023 [facility] Work Phone: Folateon 09-27-2023 Folate [Mass/Vol] 16.2 ng/mL Normal >5.0 [facility] Comment on above: Order Comment: Low < 3.4Borderline 3.4-5.0Normal >5.0Patients receiving more than 5 mg/day of biotin may have interference in test results. A sample should be taken no sooner than eight hours after previous dose. Contact the testing laboratory for additional information. Performed By: #### 1 9123-9 #### BEVERLEY Poe ([id number]) [facility] ([facility]) [address] [place] [address] 93774 Magnesiumon 09-27-2023 Magnesium [Mass/Vol] 2.13 mg/dL 1.60 - 2.40 mg/dL [facility] Magnesium [Mass/Vol] 2.13 mg/dL Normal 1.60-2.40 [facility] Comment on above: Performed By: #### 2 341-6 #### BEVERLEY Poe ([id number]) [facility] ([facility]) [address] [place] [address] 49787 Magnesium [Mass/Vol]on 09-27 Interpretation and review of laboratory results Normal [facility] No Panel Informationon 09-27 [facility] Renal function 2000 panelon 09-27-2023 Albumin BCP dye [Mass/Vol] 2.8 g/dL Low 3.4 - 5.0 g/dL [facility] Anion gap [Moles/Vol] 7 mmol/L Low 10 - 2 0 mmol/L [facility] Calcium [Mass/Vol] 8.7 mg/dL 8.6 - 10. 6 mg/dL [facility] Chloride [Moles/Vol] 102 mmol/L 98 - 10 7 mmol/L [facility] CO2 [Moles/Vol] 42 mmol/L Critically high 21 - 32 mmol/L [facility] Creatinine [Mass/Vol] 0.41 mg/dL Low 0.50 - 1.05 mg/dL [facility] GFR/1.73 sq M.predicted MDRD (S/P/Bld) [Vol rate/Area] - PINF [facility] Glucose [Mass/Vol] 142 mg/dL High 74 - 99 mg/dL [facility] Interpretation and review of laboratory results Abnormal [facility] Phosphate [Mass/Vol] 3.2 mg/dL 2.5 - 4 .9 mg/dL [facility] Potassium [Moles/Vol] 3.9 mmol/L 3.5 - 5.3 mmol/L [facility] Sodium [Moles/Vol] 147 mmol/L High 136 - 145 mmol/L [facility] Urea nitrogen [Mass/Vol] 12 mg/dL 6 - 23 mg/dL [facility] Albumin BCP dye [Mass/Vol] 2.8 g/dL Low 3.4-5.0 [facility] Comment on above: Performed By: #### 2 341-6 #### BEVERLEY Poe ([id number]) [facility] ([facility]) [address] [place] [address] 12023 Anion gap [Moles/Vol] 7 mmol/L Low 10-20 [facility] Comment on above: Performed By: #### 2 341-6 #### BEVERLEY Poe ([id number]) [facility] ([facility]) [address] [place] [address] 78949 Calcium [Mass/Vol] 8.7 mg/dL Normal 8.6-10.6 [facility] Comment on above: Performed By: #### 2 341-6 #### BEVERLEY Poe ([id number]) [facility] ([facility]) [address] [place] [address] 42253 Chloride [Moles/Vol] 102 mmol/L Normal 98-107 [facility] Comment on above: Performed By: #### 2 341-6 #### BEVERLEY Poe ([id number]) [facility] ([facility]) [address] [place] [address] 15958 CO2 [Moles/Vol] 42 mmol/L Critically high 21-32 [facility] Comment on above: Performed By: #### 2 341-6 #### BEVERLEY Poe ([id number]) [facility] ([facility]) [address] [place] [address] Creatinine [Mass/Vol] 0.41 mg/dL Low 0.50-1.05 [facility] Comment on above: Performed By: #### 2 341-6 #### BEVERLEY Poe ([id number]) [facility] ([facility]) [address] [place] [address] GFR/1.73 sq M.predicted MDRD (S/P/Bld) [Vol rate/Area] mL/min/{1.73_m2} Normal >60 [facility] Comment on above: Result Comment: Calc ulations of estimated GFR are performed using the 2020 CKD-EPI Study Refit equation without the race variable for the IDMS-Traceable creatinine methods. https://jasn.asnjournals.org/content/early/ASN.51114 13724 Performed By: #### 2 341-6 #### BEVERLEY Poe ([id number]) [facility] ([facility]) [address] [place] [address] Glucose [Mass/Vol] 142 mg/dL High 74-99 [facility] Comment on above: Performed By: #### 2 341-6 #### BEVERLEY Peo ([id number]) [facility] ([facility]) [address] [place] [address] Phosphate [Mass/Vol] 3.2 mg/dL Normal 2.5-4.9 [facility] Comment on above: Result Comment: The performance characteristics of phosphorus testing in heparinized plasma have been validated by the individual laboratory site where testing is performed. Testing on heparinized plasma is not approved by the FDA; however, such approval is not necessary. Performed By: #### 2 341-6 #### BEVERLEY Poe ([id number]) [facility] ([facility]) [address] [place] [address] Potassium [Moles/Vol] 3.9 mmol/L Normal 3.5-5.3 [facility] Comment on above: Performed By: #### 2 341-6 #### BEVERLEY Poe ([id number]) [facility] ([facility]) [address] [place] [address] Sodium [Moles/Vol] 147 mmol/L High 136-145 [facility] Comment on above: Performed By: #### 2 341-6 #### BEVERLEY Poe ([id number]) [facility] ([facility]) [address] [place] [address] Urea nitrogen [Mass/Vol] 12 mg/dL Normal 6- [facility] Comment on above: Performed By: #### 2 341-6 #### BEVERLEY Poe ([id number]) [facility] ([facility]) [address] [place] [address] 70319 SARS coronavirus 2 RNAon SARS-CoV-2 (COVID-19) RNA ISA+probe Ql (Resp) Not detected Normal Not Detected [facility] Comment on above: Order Comment: This [...] and has been validated for use at [facility]. Negative results do not preclude COVID-19 infections and should not be used as the sole basis for diagnosis, treatment, or other management decisions. Performed By: #### 2 341-6 #### BEVERLEY Poe ([id number]) [facility] ([facility]) [address] [place] [address] 89934 SARS-CoV-2 (COVID-19) RNA NA A+probe Ql (Resp)on 09-27-2023 Interpretation and review of laboratory results Normal [facility] SARS-CoV-2 RT PCRon 09-27-20 SARS-CoV-2 (COVID-19) RNA ISA+probe Ql (Resp) Not detected Not Detected [facility] CBC panel Auto (Bld)on 09-26 Erythrocyte distribution width (RBC) [Ratio] 14.3 % 11.5 - 14.5 % [facility] Hematocrit (Bld) [Volume fraction] 26.6 % Low 36.0 - 46.0 % [facility] Hemoglobin (Bld) [Mass/Vol] 7.6 g/dL Low 12.0 - 16.0 g/dL [facility] Interpretation and review of laboratory results Abnormal [facility] MCH (RBC) [Entitic mass] 29.9 pg 26.0 - 34.0 pg [facility] MCHC (RBC) [Mass/Vol] 28.6 g/dL Low 32.0 - 36.0 g/dL [facility] MCV (RBC) [Entitic vol] 105 fL High 80 - 100 fL [facility] Nucleated RBC/100 WBC (Bld) [Ratio] 0.0 % [facility] Platelets (Bld) [#/Vol] 107 10*3/uL [facility] RBC (Bld) [#/Vol] 2.54 10*6/uL [facility] WBC (Bld) [#/Vol] 4.1 10*3/uL [facility] Erythrocyte distribution width (RBC) [Ratio] 14.3 % Normal 11.5-14.5 [facility] Comment on above: Performed By: #### 2 341-6 #### BEVERLEY Poe ([id number]) [facility] ([facility]) [id number] [place] [address] 93669 Hematocrit (Bld) [Volume fraction] 26.6 % Low 36.0-46.0 [facility] Comment on above: Performed By: #### 2 341-6 #### BEVERLEY Poe ([id number]) [facility] ([facility]) [id number] [place] [address] 16813 Hemoglobin (Bld) [Mass/Vol] 7.6 g/dL Low 12.0-16.0 [facility] Comment on above: Performed By: #### 2 341-6 #### BEVERLEY Poe ([id number]) [facility] ([facility]) [address] [place] [address] 54985 MCH (RBC) [Entitic mass] 29.9 pg Normal 26.0-34.0 [facility] Comment on above: Performed By: #### 2 341-6 #### BEVERLEY Poe ([id number]) [facility] ([facility]) [address] [place] [address] 07232 MCHC (RBC) [Mass/Vol] 28.6 g/dL Low 32.0-36.0 [facility] Comment on above: Performed By: #### 2 341-6 #### BEVERLEY Poe ([id number]) [facility] ([facility]) [address] [place] [address] 46586 MCV (RBC) [Entitic vol] 105 fL High 80-100 [facility] Comment on above: Performed By: #### 2 341-6 #### BEVERLEY Poe ([id number]) [facility] ([facility]) [address] [place] [address] 89597 Nucleated RBC/100 WBC (Bld) [Ratio] 0.0 /100 WBCs Normal 0.0-0.0 [facility] Comment on above: Performed By: #### 2 341-6 #### BEVERLEY Poe ([id number]) [facility] ([facility]) [address] [place] [address] 59698 Platelets (Bld) [#/Vol] 107 x10*3/uL Low 150-450 [facility] Comment on above: Performed By: #### 2 341-6 #### BEVERLEY Poe ([id number]) [facility] ([facility]) [address] [place] [address] 43249 RBC (Bld) [#/Vol] 2.54 x10*6/uL Low 4.00-5.20 [facility] Comment on above: Performed By: #### 2 341-6 #### BEVERLEY Poe ([id number]) [facility] ([facility]) [address] [place] [address] WBC (Bld) [#/Vol] 4.1 x10*3/uL Low 4.4-11.3 [facility] Comment on above: Performed By: #### 2 341-6 #### BEVERLEY Poe ([id number]) [facility] ([facility]) [address] [place], [place] [id number] [facility] Heart and Coronary arter ies WO and W contrast Jack 09-26-2023 Radiology Study observation (narrative) [facility] Work Phone: [phone] ECG 12 LeadOrdered By: Monse Piedra on 09-26-2023 Atrial Rate 96 BPM [facility] Work Phone: [phone] P [place] 61 degrees [facility] Work Phone: [phone] P Offset 197 ms [facility] Work Phone: [phone] P Onset 133 ms [facility] Work Phone: [phone] LA Interval 156 ms [facility] Work Phone: [phone] Q Onset 211 ms [facility] Work Phone: [phone] QRS Count 16 beats [facility] - [place] Work Phone: [phone] QRS Duration 136 ms [facility] [place] Work Phone: [phone] QT Interval 380 ms [facility] [place] Work Phone: [phone] QTC Calculation(Bazett) 480 [facility] Work Phone: [phone] QTC Fredericia 444 [facility] Work Phone: [phone] R [place] -49 degrees [facility] [place] Work Phone: [phone] T [place] 77 degrees [facility] [place] Work Phone: [phone] T Offset 401 ms [facility] [place] Work Phone: [phone] Ventricular Rate 96 BPM [facility] Work Phone: [facility] [place] Work Phone: ECG 12 Leadon 09-26-2023 MUSE [facility] [place] Work Phone: Magnesiumon 09-26-2023 Magnesium [Mass/Vol] 2.17 mg/dL 1.60 - 2.40 mg/dL [facility] [place] Magnesium [Mass/Vol] 2.17 mg/dL Normal 1.60-2.40 [facility] Comment on above: Performed By: #### 2 341-6 #### BEVERLEY Poe ([id number]) [facility] ([facility]) [address] [place] [address] Magnesium [Mass/Vol]on 09-26 Interpretation and review of laboratory results Normal [facility] [place] No Panel Informationon 09-26 [facility] [place] Renal function 2000 panelon 09-26-2023 Albumin BCP dye [Mass/Vol] 2.8 g/dL Low 3.4 - 5.0 g/dL [facility] [place] Anion gap [Moles/Vol] mmol/L Low 10 - 2 0 mmol/L [facility] [place] Calcium [Mass/Vol] 8.6 mg/dL 8.6 - 10. 6 mg/dL [facility] [place] Chloride [Moles/Vol] 101 mmol/L 98 - 10 7 mmol/L [facility] [place] CO2 [Moles/Vol] 45 mmol/L Critically high 21 - 32 mmol/L [facility] [place] Creatinine [Mass/Vol] 0.45 mg/dL Low 0.50 - 1.05 mg/dL [facility] [place] GFR/1.73 sq M.predicted MDRD (S/P/Bld) [Vol rate/Area] - PINF [facility] [place] Glucose [Mass/Vol] 111 mg/dL High 74 - 99 mg/dL [facility] [place] Interpretation and review of laboratory results Abnormal [facility] [place] Phosphate [Mass/Vol] 3.2 mg/dL 2.5 - 4 .9 mg/dL [facility] [place] Potassium [Moles/Vol] 3.8 mmol/L 3.5 - 5.3 mmol/L [facility] [place] Sodium [Moles/Vol] 147 mmol/L High 136 - 145 mmol/L [facility] [place] Urea nitrogen [Mass/Vol] 16 mg/dL 6 - 23 mg/dL [facility] [place] Albumin BCP dye [Mass/Vol] 2.8 g/dL Low 3.4-5.0 [facility] Comment on above: Performed By: #### 2 341-6 #### BEVERLEY Poe ([id number]) [facility] ([facility]) [address] [place] [address] Anion gap [Moles/Vol] mmol/L Low 10-20 [facility] Comment on above: Performed By: #### 2 341-6 #### BEVERLEY Poe ([id number]) [facility] ([facility]) [id number] [place] [address] Calcium [Mass/Vol] 8.6 mg/dL Normal 8.6-10.6 [facility] Comment on above: Performed By: #### 2 341-6 #### BEVERLEY Poe ([id number]) [facility] ([facility]) [id number] [place] [address] Chloride [Moles/Vol] 101 mmol/L Normal 98-107 [facility] Comment on above: Performed By: #### 2 341-6 #### BEVERLEY DODD L ([id number]) [facility] ([facility]) [id number] [place] [address] CO2 [Moles/Vol] 45 mmol/L Critically high 21-32 [facility] Comment on above: Performed By: #### 2 341-6 #### BEVERLEY DODD L ([id number]) [facility] ([facility]) [address] [place] [address] Creatinine [Mass/Vol] 0.45 mg/dL Low 0.50-1.05 [facility] Comment on above: Performed By: #### 2 341-6 #### BEVERLEY Poe ([id number]) [facility] ([facility]) [address] [place] [address] GFR/1.73 sq M.predicted MDRD (S/P/Bld) [Vol rate/Area] mL/min/{1.73_m2} Normal >60 [facility] Comment on above: Result Comment: Calc ulations of estimated GFR are performed using the 2020 CKD-EPI Study Refit equation without the race variable for the IDMS-Traceable creatinine methods. https://jasn.asnjournals.org/content//ASN.95701 09154 Performed By: #### 2 341-6 #### BEVERLEY Poe ([id number]) [facility] ([facility]) [address] [place] [address] Glucose [Mass/Vol] 111 mg/dL High 74-99 [facility] Comment on above: Performed By: #### 2 341-6 #### BEVERLEY Poe ([id number]) [facility] ([facility]) [address] [place] [address] Phosphate [Mass/Vol] 3.2 mg/dL Normal 2.5-4.9 [facility] Comment on above: Result Comment: The performance characteristics of phosphorus testing in heparinized plasma have been validated by the individual laboratory site where testing is performed. Testing on heparinized plasma is not approved by the FDA; however, such approval is not necessary. Performed By: #### 2 341-6 #### BEVERLEY Poe ([id number]) [facility] ([facility]) [address] [place] [address] Potassium [Moles/Vol] 3.8 mmol/L Normal 3.5-5.3 [facility] Comment on above: Performed By: #### 2 341-6 #### BEVERLEY Poe ([id number]) [facility] ([facility]) [address] [place] [address] Sodium [Moles/Vol] 147 mmol/L High 136-145 [facility] Comment on above: Performed By: #### 2 341-6 #### BEVERLEY Poe ([id number]) [facility] ([facility]) [address] [place] [address] Urea nitrogen [Mass/Vol] 16 mg/dL Normal 6-23 [facility] Comment on above: Performed By: #### 2 341-6 #### BEVERLEY Poe ([id number]) [facility] ([facility]) [address] [place] [address] MR Pelvis WO and W contrast Jack 09-25-2023 [facility] MMODAL U[facility] MMODAL [facility] [place] Work Phone: MR Pelvis WO and W contrast IVOrdered By: Clint Woods on 09-25-2023 [facility] [place] Work Phone: CBC panel Auto (Bld)on 09-24 Erythrocyte distribution width (RBC) [Ratio] 14.5 % 11.5 - 14.5 % [facility] [place] Hematocrit (Bld) [Volume fraction] 26.5 % Low 36.0 - 46.0 % [facility] [place] Hemoglobin (Bld) [Mass/Vol] 7.8 g/dL Low 12.0 - 16.0 g/dL [facility] [place] Interpretation and review of laboratory results Abnormal [facility] [place] MCH (RBC) [Entitic mass] 29.1 pg 26.0 - 34.0 pg [facility] [place] MCHC (RBC) [Mass/Vol] 29.4 g/dL Low 32.0 - 36.0 g/dL [facility] [place] MCV (RBC) [Entitic vol] 99 fL 80 - 100 fL [facility] [place] Nucleated RBC/100 WBC (Bld) [Ratio] 0.0 % [facility] [place] Platelets (Bld) [#/Vol] 96 10*3/uL Low [facility] [place] RBC (Bld) [#/Vol] 2.68 10*6/uL [facility] WBC (Bld) [#/Vol] 4.7 10*3/uL [facility] Erythrocyte distribution width (RBC) [Ratio] 14.5 % Normal 11.5-14.5 [facility] Comment on above: Performed By: #### 2 341-6 #### BEVERLEY Poe ([id number]) [facility] ([facility]) [id number] [place] [address] Hematocrit (Bld) [Volume fraction] 26.5 % Low 36.0-46.0 [facility] Comment on above: Performed By: #### 2 341-6 #### BEVERLEY Poe ([id number]) [facility] ([facility]) [id number] [place] [address] Hemoglobin (Bld) [Mass/Vol] 7.8 g/dL Low 12.0-16.0 [facility] Comment on above: Performed By: #### 2 341-6 #### BEVERLEY Poe ([id number]) [facility] ([facility]) [address] [place] [address] MCH (RBC) [Entitic mass] 29.1 pg Normal 26.0-34.0 [facility] Comment on above: Performed By: #### 2 341-6 #### BEVERLEY Poe ([id number]) [facility] ([facility]) [address] [place] [address] MCHC (RBC) [Mass/Vol] 29.4 g/dL Low 32.0-36.0 [facility] Comment on above: Performed By: #### 2 341-6 #### BEVERLEY Poe ([id number]) [facility] ([facility]) [address] [place] [address] MCV (RBC) [Entitic vol] 99 fL Normal 80-100 [facility] Comment on above: Performed By: #### 2 341-6 #### BEVERLEY Poe ([id number]) [facility] ([facility]) [address] [place] [address] 91057 Nucleated RBC/100 WBC (Bld) [Ratio] 0.0 /100 WBCs Normal 0.0-0.0 [facility] Comment on above: Performed By: #### 2 341-6 #### BEVERLEY Poe ([id number]) [facility] ([facility]) [address] [place] [address]77 Platelets (Bld) [#/Vol] 96 x10*3/uL Low 150-450 [facility] Comment on above: Performed By: #### 2 341-6 #### BEVERLEY Poe ([id number]) [facility] ([facility]) [id number] [place] [address] 00168 RBC (Bld) [#/Vol] 2.68 x10*6/uL Low 4.00-5.20 [facility] Comment on above: Performed By: #### 2 341-6 #### BEVERLEY Poe ([id number]) [facility] ([facility]) [address] [place] [address]42[address] WBC (Bld) [#/Vol] 4.7 x10*3/uL Normal 4.4-11.3 [facility] Comment on above: Performed By: #### 2 341-6 #### BEVERLEY Poe ([id number]) [facility] ([facility]) [address] [place] [address]480 Glucose Test strip manual (B ld) [Mass/Vol]on 09-24-2023 Glucose [Mass/Vol] 135 mg/dL High 74 - 99 mg/dL [facility] [place] Interpretation and review of laboratory results Abnormal [facility] Magnesiumon 09-24-2023 Magnesium [Mass/Vol] 2.01 mg/dL 1.60 - 2.40 mg/dL [facility] [place] Magnesium [Mass/Vol] 2.01 mg/dL Normal 1.60-2.40 [facility] Comment on above: Performed By: #### 2 341-6 #### BEVERLEY Poe ([id number]) [facility] ([facility]) [address] [place] [address]7065 Magnesium [Mass/Vol]on 09-24 Interpretation and review of laboratory results Normal [facility] [place] No Panel Informationon 09-24 [facility] [place] Renal function 2000 panelon 09-24-2023 Albumin BCP dye [Mass/Vol] 2.8 g/dL Low 3.4 - 5.0 g/dL [facility] [place] Anion gap [Moles/Vol] 10 mmol/L 10 - 2 0 mmol/L [facility] [place] Calcium [Mass/Vol] 8.4 mg/dL Low 8.6 - 10. 6 mg/dL [facility] [place] Chloride [Moles/Vol] 98 mmol/L 98 - 10 7 mmol/L [facility] [place] CO2 [Moles/Vol] 42 mmol/L Critically high 21 - 32 mmol/L [facility] [place] Creatinine [Mass/Vol] 0.42 mg/dL Low 0.50 - 1.05 mg/dL [facility] [place] GFR/1.73 sq M.predicted MDRD (S/P/Bld) [Vol rate/Area] - PINF [facility] [place] Glucose [Mass/Vol] 140 mg/dL High 74 - 99 mg/dL [facility] [place] Interpretation and review of laboratory results Abnormal [facility] [place] Phosphate [Mass/Vol] 3.3 mg/dL 2.5 - 4 .9 mg/dL [facility] [place] Potassium [Moles/Vol] 4.0 mmol/L 3.5 - 5.3 mmol/L [facility] [place] Sodium [Moles/Vol] 146 mmol/L High 136 - 145 mmol/L [facility] [place] Urea nitrogen [Mass/Vol] 10 mg/dL 6 - 23 mg/dL [facility] [place] Albumin BCP dye [Mass/Vol] 2.8 g/dL Low 3.4-5.0 [facility] Comment on above: Performed By: #### 2 341-6 #### BEVERLEY Poe ([id number]) [facility] ([facility]) [address] [place] [address] Anion gap [Moles/Vol] 10 mmol/L Normal 10-20 [facility] Comment on above: Performed By: #### 2 341-6 #### BEVERLEY Poe ([id number]) [facility] ([facility]) [address] [place] [address]77 Calcium [Mass/Vol] 8.4 mg/dL Low 8.6-10.6 [facility] Comment on above: Performed By: #### 2 341-6 #### BEVERLEY Poe ([id number]) [facility] ([facility]) [address] [place] [address] Chloride [Moles/Vol] 98 mmol/L Normal 98-107 [facility] Comment on above: Performed By: #### 2 341-6 #### BEVERLEY CARSONER L ([id number]) [facility] ([facility]) [address] [place] [address] CO2 [Moles/Vol] 42 mmol/L Critically high 21-32 [facility] Comment on above: Performed By: #### 2 341-6 #### BEVERLEY DODD L ([id number]) [facility] ([facility]) [address] [place] [address] Creatinine [Mass/Vol] 0.42 mg/dL Low 0.50-1.05 [facility] Comment on above: Performed By: #### 2 341-6 #### BEVERLEY Poe ([id number]) [facility] ([facility]) [address] [place] [address] GFR/1.73 sq M.predicted MDRD (S/P/Bld) [Vol rate/Area] mL/min/{1.73_m2} Normal >60 [facility] Comment on above: Result Comment: Calc ulations of estimated GFR are performed using the 2020 CKD-EPI Study Refit equation without the race variable for the IDMS-Traceable creatinine methods. https://jasn.asnjournals.org/content//ASN.05552 13730 Performed By: #### 2 341-6 #### BEVERLEY DODD L ([id number]) [facility] ([facility]) [address] [place] [address] Glucose [Mass/Vol] 140 mg/dL High 74-99 [facility] Comment on above: Performed By: #### 2 341-6 #### BEVERLEY DODD L ([id number]) [facility] ([facility]) [address] [place] [address] Phosphate [Mass/Vol] 3.3 mg/dL Normal 2.5-4.9 [facility] Comment on above: Result Comment: The performance characteristics of phosphorus testing in heparinized plasma have been validated by the individual laboratory site where testing is performed. Testing on heparinized plasma is not approved by the FDA; however, such approval is not necessary. Performed By: #### 2 341-6 #### BEVERLEY Poe ([id number]) [facility] ([facility]) [address] [place] [address] Potassium [Moles/Vol] 4.0 mmol/L Normal 3.5-5.3 [facility] Comment on above: Performed By: #### 2 341-6 #### BEVERLEY Poe ([id number]) [facility] ([facility]) [address] [place] [address]5970 Sodium [Moles/Vol] 146 mmol/L High 136-145 [facility] Comment on above: Performed By: #### 2 341-6 #### BEVERLEY Poe ([id number]) [facility] ([facility]) [address] [place] [address] 18809 Urea nitrogen [Mass/Vol] 10 mg/dL Normal 6-23 [facility] Comment on above: Performed By: #### 2 341-6 #### BEVERLEY Poe ([id number]) [facility] ([facility]) [address] [place] [address] 82348 CBC panel Auto (Bld)on 09-23 Erythrocyte distribution width (RBC) [Ratio] 14.4 % 11.5 - 14.5 % [facility] [place] Hematocrit (Bld) [Volume fraction] 26.9 % Low 36.0 - 46.0 % [facility] [place] Hemoglobin (Bld) [Mass/Vol] 7.7 g/dL Low 12.0 - 16.0 g/dL [facility] [place] Interpretation and review of laboratory results Abnormal [facility] [place] MCH (RBC) [Entitic mass] 29.8 pg 26.0 - 34.0 pg [facility] [place] MCHC (RBC) [Mass/Vol] 28.6 g/dL Low 32.0 - 36.0 g/dL [facility] [place] MCV (RBC) [Entitic vol] 104 fL High 80 - 100 fL [facility] [place] Nucleated RBC/100 WBC (Bld) [Ratio] 0.0 % [facility] [place] Platelets (Bld) [#/Vol] 93 10*3/uL Low [facility] [place] RBC (Bld) [#/Vol] 2.58 10*6/uL [facility] WBC (Bld) [#/Vol] 4.9 10*3/uL [facility] Erythrocyte distribution width (RBC) [Ratio] 14.4 % Normal 11.5-14.5 [facility] Comment on above: Performed By: #### 2 341-6 #### BEVERLEY Poe ([id number]) [facility] ([facility]) [address] [place] [address]593 Hematocrit (Bld) [Volume fraction] 26.9 % Low 36.0-46.0 [facility] Comment on above: Performed By: #### 2 341-6 #### BEVERLEY Poe ([id number]) [facility] ([facility]) [address] [place] [address] 01216 Hemoglobin (Bld) [Mass/Vol] 7.7 g/dL Low 12.0-16.0 [facility] Comment on above: Performed By: #### 2 341-6 #### BEVERLEY Poe ([id number]) [facility] ([facility]) [address] [place] [address] 95184 MCH (RBC) [Entitic mass] 29.8 pg Normal 26.0-34.0 [facility] Comment on above: Performed By: #### 2 341-6 #### BEVERLEY Poe ([id number]) [facility] ([facility]) [address] [place] [address] 08196 MCHC (RBC) [Mass/Vol] 28.6 g/dL Low 32.0-36.0 [facility] Comment on above: Performed By: #### 2 341-6 #### BEVERLEY Poe ([id number]) [facility] ([facility]) [address] [place] [address] MCV (RBC) [Entitic vol] 104 fL High 80-100 [facility] Comment on above: Performed By: #### 2 341-6 #### BEVERLEY Poe ([id number]) [facility] ([facility]) [address] [place] [address] 83403 Nucleated RBC/100 WBC (Bld) [Ratio] 0.0 /100 WBCs Normal 0.0-0.0 [facility] Comment on above: Performed By: #### 2 341-6 #### BEVERLEY Poe ([id number]) [facility] ([facility]) [id number] [place] [address] 64898 Platelets (Bld) [#/Vol] 93 x10*3/uL Low 150-450 [facility] Comment on above: Performed By: #### 2 341-6 #### BEVERLEY Poe ([id number]) [facility] ([facility]) [address] [place] [address] 53272 RBC (Bld) [#/Vol] 2.58 x10*6/uL Low 4.00-5.20 [facility] Comment on above: Performed By: #### 2 341-6 #### BEVERLEY Poe ([id number]) [facility] ([facility]) [id number] [place] [address] 63281 WBC (Bld) [#/Vol] 4.9 x10*3/uL Normal 4.4-11.3 [facility] Comment on above: Performed By: #### 2 341-6 #### BEVERLEY Poe ([id number]) [facility] ([facility]) [id number] [place] [address] ANGIO CORONARY ART WITH H EARTFLOW IF SCORE >30%on 09-23-2023 CT ANGIO CORONARY ART WITH HEARTFLOW IF SCORE >30% Interpreted By: Yair Pham and Hima Mccarty STUDY: CT ANGIO CORONARY ART WITH HEARTFLOW IF SCORE >30%; 09/26/2023 1:38 pm INDICATION: Signs/Symptoms:Reduced EF; Pre Op optimization. COMPARISON: None. ACCESSION NUMBER(S): [id number] ORDERING CLINICIAN: KANG JULIAN TECHNIQUE: Using multi-detector [...] Yair Pham 09/28/2023 11:26 AM Dictation workstation: [id number] [facility] Carcinoembryonic Agon 2022 Carcinoembryonic Ag [Mass/Vol] ng/mL [facility] Comment on above: Order Comment: REF V ALUES NONSMOKERS 0-2.5 SMOKERS 0-5.0CEA testing is performed by chemiluminescent immunoassay using the Siemens SummitIG. Values obtained with different analytic methods cannot [...] By: #### 2 341-6 #### BEVERLEY Poe ([id number]) [facility] ([facility]) [address] [place] [address] 45204 Carcinoembryonic Ag [Mass/Vo l]on 09-23-2023 [facility] Carcinoembryonic Antigenon 1 11-23-2022 Carcinoembryonic Ag [Mass/Vol] ug/L ug/L [facility] [place] Glucose Test strip manual (B ld) [Mass/Vol]on 09-23-2023 Glucose [Mass/Vol] 146 mg/dL High 74 - 99 mg/dL [facility] [place] Interpretation and review of laboratory results Abnormal [facility] Glucose [Mass/Vol] 146 mg/dL High 74-99 [facility] Comment on above: Performed By: #### 2 341-6 #### BEVERLEY Poe ([id number]) [facility] ([facility]) [address] [place] [address] 67442 Glucose [Mass/Vol] 161 mg/dL High 74 - 99 mg/dL [facility] Interpretation and review of laboratory results Abnormal [facility] Glucose [Mass/Vol] 161 mg/dL High 74-99 [facility] Comment on above: Performed By: #### 2 341-6 #### BEVERLEY Poe ([id number]) [facility] ([facility]) [address] [place] [address] 66385 Magnesiumon 09-23-2023 Magnesium [Mass/Vol] 2.04 mg/dL 1.60 - 2.40 mg/dL [facility] [place] Magnesium [Mass/Vol] 2.04 mg/dL Normal 1.60-2.40 [facility] Comment on above: Performed By: #### 2 341-6 #### BEVERLEY Poe ([id number]) [facility] ([facility]) [address] [place], [place] [id number] Magnesium [Mass/Vol]on 09-23 Interpretation and review of laboratory results Normal [facility] [place] No Panel Informationon 09-23 [facility] Renal function 2000 panelon 09-23-2023 Albumin BCP dye [Mass/Vol] 2.9 g/dL Low 3.4 - 5.0 g/dL [facility] Anion gap [Moles/Vol] 8 mmol/L Low 10 - 2 0 mmol/L [facility] Calcium [Mass/Vol] 8.7 mg/dL 8.6 - 10. 6 mg/dL [facility] Chloride [Moles/Vol] 100 mmol/L 98 - 10 7 mmol/L [facility] CO2 [Moles/Vol] 40 mmol/L Critically high 21 - 32 mmol/L [facility] Creatinine [Mass/Vol] 0.42 mg/dL Low 0.50 - 1.05 mg/dL [facility] GFR/1.73 sq M.predicted MDRD (S/P/Bld) [Vol rate/Area] - PINF [facility] Glucose [Mass/Vol] 123 mg/dL High 74 - 99 mg/dL [facility] Interpretation and review of laboratory results Abnormal [facility] Phosphate [Mass/Vol] 3.0 mg/dL 2.5 - 4 .9 mg/dL [facility] Potassium [Moles/Vol] 4.0 mmol/L 3.5 - 5.3 mmol/L [facility] Sodium [Moles/Vol] 144 mmol/L 136 - 145 mmol/L [facility] Urea nitrogen [Mass/Vol] 13 mg/dL 6 - 23 mg/dL [facility] Albumin BCP dye [Mass/Vol] 2.9 g/dL Low 3.4-5.0 [facility] Comment on above: Performed By: #### 2 341-6 #### BEVERLEY Poe ([id number]) [facility] ([facility]) [address] [place] [address] Anion gap [Moles/Vol] 8 mmol/L Low 10-20 [facility] Comment on above: Performed By: #### 2 341-6 #### BEVERLEY DODD L ([id number]) [facility] ([facility]) [address] [place] [address] Calcium [Mass/Vol] 8.7 mg/dL Normal 8.6-10.6 [facility] Comment on above: Performed By: #### 2 341-6 #### BEVERLEY DODD L ([id number]) [facility] ([facility]) [id number] [place] [address] Chloride [Moles/Vol] 100 mmol/L Normal 98-107 [facility] Comment on above: Performed By: #### 2 341-6 #### BEVERLEY DODD L ([id number]) [facility] ([facility]) [id number] [place] [address] CO2 [Moles/Vol] 40 mmol/L Critically high 21-32 [facility] Comment on above: Performed By: #### 2 341-6 #### BEVERLEY DODD L ([id number]) [facility] ([facility]) [address] [place] [address] Creatinine [Mass/Vol] 0.42 mg/dL Low 0.50-1.05 [facility] Comment on above: Performed By: #### 2 341-6 #### BEVERLEY DODD L ([id number]) [facility] ([facility]) [address] [place] [address] GFR/1.73 sq M.predicted MDRD (S/P/Bld) [Vol rate/Area] mL/min/{1.73_m2} Normal >60 [facility] Comment on above: Result Comment: Calc ulations of estimated GFR are performed using the 2020 CKD-EPI Study Refit equation without the race variable for the IDMS-Traceable creatinine methods. https://jasn.asnjournals.org/content//ASN.03097 25595 Performed By: #### 2 341-6 #### BEVERLEY Poe ([id number]) [facility] ([facility]) [address] [place] [address] Glucose [Mass/Vol] 123 mg/dL High 74-99 [facility] Comment on above: Performed By: #### 2 341-6 #### BEVERLEY oPe ([id number]) [facility] ([facility]) [address] [place] [address] Phosphate [Mass/Vol] 3.0 mg/dL Normal 2.5-4.9 [facility] Comment on above: Result Comment: The performance characteristics of phosphorus testing in heparinized plasma have been validated by the individual laboratory site where testing is performed. Testing on heparinized plasma is not approved by the FDA; however, such approval is not necessary. Performed By: #### 2 341-6 #### BEVERLEY Poe ([id number]) [facility] ([facility]) [address] [place] [address] Potassium [Moles/Vol] 4.0 mmol/L Normal 3.5-5.3 [facility] Comment on above: Performed By: #### 2 341-6 #### BEVERLEY Poe ([id number]) [facility] ([facility]) [address] [place] [address] Sodium [Moles/Vol] 144 mmol/L Normal 136-145 [facility] Comment on above: Performed By: #### 2 341-6 #### BEVERLEY Poe ([id number]) [facility] ([facility]) [address] [place] [address] Urea nitrogen [Mass/Vol] 13 mg/dL Normal 6-23 [facility] Comment on above: Performed By: #### 2 341-6 #### BEVERLEY Poe ([id number]) [facility] ([facility]) [address] [place] [address] Bacteria identified Cx Nom ( U)Ordered By: Rakesh Srivastava on 09-22-2023 Interpretation and review of laboratory results Abnormal [facility] CBC panel Auto (Bld)on 09-22 Erythrocyte distribution width (RBC) [Ratio] 14.6 % High 11.5 - 14.5 % [facility] Hematocrit (Bld) [Volume fraction] 27.9 % Low 36.0 - 46.0 % [facility] Hemoglobin (Bld) [Mass/Vol] 8.0 g/dL Low 12.0 - 16.0 g/dL [facility] Interpretation and review of laboratory results Abnormal [facility] MCH (RBC) [Entitic mass] 29.9 pg 26.0 - 34.0 pg [facility] MCHC (RBC) [Mass/Vol] 28.7 g/dL Low 32.0 - 36.0 g/dL [facility] MCV (RBC) [Entitic vol] 104 fL High 80 - 100 fL [facility] Nucleated RBC/100 WBC (Bld) [Ratio] 0.0 % [facility] Platelets (Bld) [#/Vol] 99 10*3/uL Low [facility] RBC (Bld) [#/Vol] 2.68 10*6/uL [facility] WBC (Bld) [#/Vol] 4.7 10*3/uL [facility] Erythrocyte distribution width (RBC) [Ratio] 14.6 % High 11.5-14.5 [facility] Comment on above: Performed By: #### 3 4532-2 #### BEVERLEY Poe ([id number]) [facility] ([facility]) [address] [place] [address] Hematocrit (Bld) [Volume fraction] 27.9 % Low 36.0-46.0 [facility] Comment on above: Performed By: #### 3 4532-2 #### BEVERLEY Poe ([id number]) [facility] ([facility]) [address] [place] [address] Hemoglobin (Bld) [Mass/Vol] 8.0 g/dL Low 12.0-16.0 [facility] Comment on above: Performed By: #### 3 4531-2 #### BEVERLEY Poe ([id number]) [facility] ([facility]) [address] [place] [address] MCH (RBC) [Entitic mass] 29.9 pg Normal 26.0-34.0 [facility] Comment on above: Performed By: #### 3 4531-2 #### BEVERLEY Poe ([id number]) [facility] ([facility]) [address] [place] [address] MCHC (RBC) [Mass/Vol] 28.7 g/dL Low 32.0-36.0 [facility] Comment on above: Performed By: #### 3 4531-2 #### BEVERLEY Poe ([id number]) [facility] ([facility]) [address] [place] [address] MCV (RBC) [Entitic vol] 104 fL High 80-100 [facility] Comment on above: Performed By: #### 3 4531-2 #### BEVERLEY Poe ([id number]) [facility] ([facility]) [address] [place] [address] Nucleated RBC/100 WBC (Bld) [Ratio] 0.0 /100 WBCs Normal 0.0-0.0 [facility] Comment on above: Performed By: #### 3 4531-2 #### BEVERLEY Poe ([id number]) [facility] ([facility]) [address] [place] [address] Platelets (Bld) [#/Vol] 99 x10*3/uL Low 150-450 [facility] Comment on above: Performed By: #### 3 4531-2 #### BEVERLEY Poe ([id number]) [facility] ([facility]) [address] [place] [address] RBC (Bld) [#/Vol] 2.68 x10*6/uL Low 4.00-5.20 [facility] Comment on above: Performed By: #### 3 4532-2 #### BEVERLEY Poe ([id number]) [facility] ([facility]) [address] [place] [address] WBC (Bld) [#/Vol] 4.7 x10*3/uL Normal 4.4-11.3 [facility] Comment on above: Performed By: #### 3 4532-2 #### BEVERLEY Poe ([id number]) [facility] ([facility]) [id number] [place] [address] Glucose Test strip manual (B ld) [Mass/Vol]on 09-22-2023 Glucose [Mass/Vol] 160 mg/dL High 74 - 99 mg/dL [facility] Interpretation and review of laboratory results Abnormal [facility] Glucose [Mass/Vol] 160 mg/dL High 74-99 [facility] Comment on above: Performed By: #### 2 341-6 #### BEVERLEY Poe ([id number]) [facility] ([facility]) [address] [place] [address] Glucose [Mass/Vol] 174 mg/dL High 74 - 99 mg/dL [facility] Interpretation and review of laboratory results Abnormal [facility] Glucose [Mass/Vol] 174 mg/dL High 74-99 [facility] Comment on above: Performed By: #### 2 341-6 #### BEVERLEY Poe ([id number]) [facility] ([facility]) [address] [place] [address] Glucose [Mass/Vol] 135 mg/dL High 74-99 [facility] Comment on above: Performed By: #### 2 341-6 #### BEVERLEY Poe ([id number]) [facility] ([facility]) [address] [place] [address] Glucose [Mass/Vol] 148 mg/dL High 74 - 99 mg/dL [facility] Interpretation and review of laboratory results Abnormal [facility] Glucose [Mass/Vol] 148 mg/dL High 74-99 [facility] Comment on above: Performed By: #### 3 4532-2 #### BEVERLEY Poe ([id number]) [facility] ([facility]) [address] [place] [address] Magnesiumon 09-22-2023 Magnesium [Mass/Vol] 2.07 mg/dL 1.60 - 2.40 mg/dL [facility] Magnesium [Mass/Vol] 2.07 mg/dL Normal 1.60-2.40 [facility] Comment on above: Performed By: #### 3 4532-2 #### BEVERLEY Poe ([id number]) [facility] ([facility]) [address] [place] [address] Magnesium [Mass/Vol]on 09-22 Interpretation and review of laboratory results Normal [facility] No Panel Informationon 09-22 [facility] Renal function 2000 panelon 09-22-2023 Albumin BCP dye [Mass/Vol] 2.7 g/dL Low 3.4 - 5.0 g/dL [facility] Anion gap [Moles/Vol] 11 mmol/L 10 - 2 0 mmol/L [facility] Calcium [Mass/Vol] 8.3 mg/dL Low 8.6 - 10. 6 mg/dL [facility] Chloride [Moles/Vol] 101 mmol/L 98 - 10 7 mmol/L [facility] CO2 [Moles/Vol] 38 mmol/L High 21 - 32 mmol/L [facility] Creatinine [Mass/Vol] 0.42 mg/dL Low 0.50 - 1.05 mg/dL [facility] GFR/1.73 sq M.predicted MDRD (S/P/Bld) [Vol rate/Area] - PINF [facility] Glucose [Mass/Vol] 134 mg/dL High 74 - 99 mg/dL [facility] Interpretation and review of laboratory results Abnormal [facility] Phosphate [Mass/Vol] 3.4 mg/dL 2.5 - 4 .9 mg/dL [facility] Potassium [Moles/Vol] 4.0 mmol/L 3.5 - 5.3 mmol/L [facility] Sodium [Moles/Vol] 146 mmol/L High 136 - 145 mmol/L [facility] Urea nitrogen [Mass/Vol] 15 mg/dL 6 - 23 mg/dL [facility] Albumin BCP dye [Mass/Vol] 2.7 g/dL Low 3.4-5.0 [facility] Comment on above: Performed By: #### 3 4531-2 #### BEVERLEY Poe ([id number]) [facility] ([facility]) [address] [place] [address] Anion gap [Moles/Vol] 11 mmol/L Normal 10-20 [facility] Comment on above: Performed By: #### 3 4531-2 #### BEVERLEY Poe ([id number]) [facility] ([facility]) [address] [place] [address] Calcium [Mass/Vol] 8.3 mg/dL Low 8.6-10.6 [facility] Comment on above: Performed By: #### 3 4531-2 #### BEVERLEY Poe ([id number]) [facility] ([facility]) [address] [place] [address] Chloride [Moles/Vol] 101 mmol/L Normal 98-107 [facility] Comment on above: Performed By: #### 3 4531-2 #### BVEERLEY Poe ([id number]) [facility] ([facility]) [address] [place] [address] CO2 [Moles/Vol] 38 mmol/L High 21-32 [facility] Comment on above: Performed By: #### 3 4531-2 #### BEVERLEY Poe ([id number]) [facility] ([facility]) [address] [place] [address] Creatinine [Mass/Vol] 0.42 mg/dL Low 0.50-1.05 [facility] Comment on above: Performed By: #### 3 4531-2 #### BEVERLEY Poe ([id number]) [facility] ([facility]) [address] [place] [address] GFR/1.73 sq M.predicted MDRD (S/P/Bld) [Vol rate/Area] mL/min/{1.73_m2} Normal >60 [facility] Comment on above: Result Comment: Calc ulations of estimated GFR are performed using the 2020 CKD-EPI Study Refit equation without the race variable for the IDMS-Traceable creatinine methods. https://jasn.asnjournals.org/content/early//ASN.18082 93185 Performed By: #### 3 4532-2 #### BEVERLEY Poe ([id number]) [facility] ([facility]) [address] [place] [address] Glucose [Mass/Vol] 134 mg/dL High 74-99 [facility] Comment on above: Performed By: #### 3 4532-2 #### BEVERLEY Poe ([id number]) [facility] ([facility]) [address] [place] [address] Phosphate [Mass/Vol] 3.4 mg/dL Normal 2.5-4.9 [facility] Comment on above: Result Comment: The performance characteristics of phosphorus testing in heparinized plasma have been validated by the individual laboratory site where testing is performed. Testing on heparinized plasma is not approved by the FDA; however, such approval is not necessary. Performed By: #### 3 4532-2 #### BEVERLEY Poe ([id number]) [facility] ([facility]) [address] [place] [address] Potassium [Moles/Vol] 4.0 mmol/L Normal 3.5-5.3 [facility] Comment on above: Performed By: #### 3 4532-2 #### BEVERLEY Poe ([id number]) [facility] ([facility]) [address] [place] [address] Sodium [Moles/Vol] 146 mmol/L High 136-145 [facility] Comment on above: Performed By: #### 3 4532-2 #### BEVERLEY Poe ([id number]) [facility] ([facility]) [address] [place] [address] Urea nitrogen [Mass/Vol] 15 mg/dL Normal 6-23 [facility] Comment on above: Performed By: #### 3 4532-2 #### BEVERLEY Poe ([id number]) [facility] ([facility]) [address] [place] [address] Urine cultureOrdered By: Kel Srivastava on 09-22-2023 Bacteria identified Cx Nom (U) >100,000 Enterococcus faecium Abnormal [facility] CBC panel Auto (Bld)on 09-21 Erythrocyte distribution width (RBC) [Ratio] 14.4 % 11.5 - 14.5 % [facility] Hematocrit (Bld) [Volume fraction] 25.6 % Low 36.0 - 46.0 % [facility] Hemoglobin (Bld) [Mass/Vol] 8.0 g/dL Low 12.0 - 16.0 g/dL [facility] Interpretation and review of laboratory results Abnormal [facility] MCH (RBC) [Entitic mass] 30.5 pg 26.0 - 34.0 pg [facility] MCHC (RBC) [Mass/Vol] 31.3 g/dL Low 32.0 - 36.0 g/dL [facility] MCV (RBC) [Entitic vol] 98 fL 80 - 100 fL [facility] Nucleated RBC/100 WBC (Bld) [Ratio] 0.0 % [facility] Platelets (Bld) [#/Vol] 88 10*3/uL Low [facility] RBC (Bld) [#/Vol] 2.62 10*6/uL [facility] WBC (Bld) [#/Vol] 5.0 10*3/uL [facility] Erythrocyte distribution width (RBC) [Ratio] 14.4 % Normal 11.5-14.5 [facility] Comment on above: Performed By: #### 2 341-6 #### BEVERLEY Poe ([id number]) [facility] ([facility]) [id number] [place] [address] Hematocrit (Bld) [Volume fraction] 25.6 % Low 36.0-46.0 [facility] Comment on above: Performed By: #### 2 341-6 #### BEVERLEY Poe ([id number]) [facility] ([facility]) [address] [place] [address] Hemoglobin (Bld) [Mass/Vol] 8.0 g/dL Low 12.0-16.0 [facility] Comment on above: Performed By: #### 2 341-6 #### BEVERLEY Poe ([id number]) [facility] ([facility]) [address] [place] [address] MCH (RBC) [Entitic mass] 30.5 pg Normal 26.0-34.0 [facility] Comment on above: Performed By: #### 2 341-6 #### BEVERLEY Poe ([id number]) [facility] ([facility]) [address] [place] [address] MCHC (RBC) [Mass/Vol] 31.3 g/dL Low 32.0-36.0 [facility] Comment on above: Performed By: #### 2 341-6 #### BEVERLEY Poe ([id number]) [facility] ([facility]) [address] [place] [address] MCV (RBC) [Entitic vol] 98 fL Normal 80-100 [facility] Comment on above: Performed By: #### 2 341-6 #### BEVERLEY Peo ([id number]) [facility] ([facility]) [address] [place] [address] Nucleated RBC/100 WBC (Bld) [Ratio] 0.0 /100 WBCs Normal 0.0-0.0 [facility] Comment on above: Performed By: #### 2 341-6 #### BEVERLEY Poe ([id number]) [facility] ([facility]) [address] [place] [address] Platelets (Bld) [#/Vol] 88 x10*3/uL Low 150-450 [facility] Comment on above: Performed By: #### 2 341-6 #### BEVERLEY Poe ([id number]) [facility] ([facility]) [address] [place] [address] RBC (Bld) [#/Vol] 2.62 x10*6/uL Low 4.00-5.20 [facility] Comment on above: Performed By: #### 2 341-6 #### BEVERLEY Poe ([id number]) [facility] ([facility]) [address] [place] [address] WBC (Bld) [#/Vol] 5.0 x10*3/uL Normal 4.4-11.3 [facility] Comment on above: Performed By: #### 2 341-6 #### BEVERLEY Poe ([id number]) [facility] ([facility]) [address] [place] [address] Cancer Ag 125 Qnon 3 Interpretation and review of laboratory results Normal [facility] Cancer Antigen 125on 023 Cancer Ag 125 Qn 22.0 [arb'U]/mL 0.0 - 30 .2 U/mL [facility] Glucose Test strip manual (B ld) [Mass/Vol]on 09-21-2023 Glucose [Mass/Vol] 189 mg/dL High 74 - 99 mg/dL [facility] Interpretation and review of laboratory results Abnormal [facility] Glucose [Mass/Vol] 189 mg/dL High 74-99 [facility] Comment on above: Performed By: #### 3 4532-2 #### BEVERLEY Poe ([id number]) [facility] [address] [place] [address] Glucose [Mass/Vol] 120 mg/dL High 74 - 99 mg/dL [facility] Interpretation and review of laboratory results Abnormal [facility] Glucose [Mass/Vol] 120 mg/dL High 74-99 [facility] Comment on above: Performed By: #### 3 4532-2 #### BEVERLEY Poe ([id number]) [facility] ([facility]) [address] [place] [address] Glucose [Mass/Vol] 162 mg/dL High 74 - 99 mg/dL [facility] Interpretation and review of laboratory results Abnormal [facility] Glucose [Mass/Vol] 162 mg/dL High 74-99 [facility] Comment on above: Performed By: #### 3 4532-2 #### BEVERLEY Poe ([id number]) [facility] ([facility]) [address] [place] [address] Glucose [Mass/Vol] 134 mg/dL High 74 - 99 mg/dL [facility] Interpretation and review of laboratory results Abnormal [facility] Glucose [Mass/Vol] 134 mg/dL High 74-99 [facility] Comment on above: Performed By: #### 2 341-6 #### BEVERLEY Peo ([id number]) [facility] ([facility]) [address] [place] [address] Glucose [Mass/Vol] 136 mg/dL High 74 - 99 mg/dL [facility] Interpretation and review of laboratory results Abnormal [facility] Glucose [Mass/Vol] 136 mg/dL High 74-99 [facility] Comment on above: Performed By: #### 2 341-6 #### BEVERLEY Poe ([id number]) [facility] ([facility]) [address] [place] [address] Glucose [Mass/Vol] 123 mg/dL High 74 - 99 mg/dL [facility] Interpretation and review of laboratory results Abnormal [facility] Glucose [Mass/Vol] 123 mg/dL High 74-99 [facility] Comment on above: Performed By: #### 2 341-6 #### BEVERLEY Poe ([id number]) [facility] ([facility]) [address] [place] [id number] MR PELVIS W AND WO IV TI [...] colovesical colovaginal fistula. COMPARISON: None ACCESSION NUMBER(S): [id number] ORDERING CLINICIAN: KANG JULIAN TECHNIQUE: Multiplanar MRI [...] Cristina MD. This study was interpreted at [place], [place]. MACRO: None Signed by: Clint Woods 09/25/2023 3:47 PM Dictation workstation: [id number] Normal [facility] MR Pelvis WO and W contrast Jack 09-21-2023 Radiology Study observation (narrative) [facility] Work Phone: Magnesiumon 09-21-2023 Magnesium [Mass/Vol] 2.05 mg/dL 1.60 - 2.40 mg/dL [facility] Magnesium [Mass/Vol] 2.05 mg/dL Normal 1.60-2.40 [facility] Comment on above: Performed By: #### 2 341-6 #### BEVERLEY Poe ([id number]) [facility] ([facility]) [address] [place] [address] Magnesium [Mass/Vol]on 09-21 Interpretation and review of laboratory results Normal [facility] No Panel Informationon 09-21 [facility] Renal function 2000 panelon 09-21-2023 Albumin BCP dye [Mass/Vol] 2.7 g/dL Low 3.4 - 5.0 g/dL [facility] Anion gap [Moles/Vol] 8 mmol/L Low 10 - 2 0 mmol/L [facility] Calcium [Mass/Vol] 8.3 mg/dL Low 8.6 - 10. 6 mg/dL [facility] Chloride [Moles/Vol] 101 mmol/L 98 - 10 7 mmol/L [facility] CO2 [Moles/Vol] 41 mmol/L Critically high 21 - 32 mmol/L [facility] Creatinine [Mass/Vol] 0.45 mg/dL Low 0.50 - 1.05 mg/dL [facility] GFR/1.73 sq M.predicted MDRD (S/P/Bld) [Vol rate/Area] - PINF [facility] Glucose [Mass/Vol] 140 mg/dL High 74 - 99 mg/dL [facility] Interpretation and review of laboratory results Abnormal [facility] Phosphate [Mass/Vol] 3.4 mg/dL 2.5 - 4 .9 mg/dL [facility] Potassium [Moles/Vol] 3.8 mmol/L 3.5 - 5.3 mmol/L [facility] Sodium [Moles/Vol] 146 mmol/L High 136 - 145 mmol/L [facility] Urea nitrogen [Mass/Vol] 12 mg/dL 6 - 23 mg/dL [facility] Albumin BCP dye [Mass/Vol] 2.7 g/dL Low 3.4-5.0 [facility] Comment on above: Performed By: #### 3 4532-2 #### BEVERLEY Poe ([id number]) [facility] ([facility]) [address] [place] [address] Anion gap [Moles/Vol] 8 mmol/L Low 10-20 [facility] Comment on above: Performed By: #### 3 4532-2 #### BEVERLEY Poe ([id number]) [facility] ([facility]) [address] [place] [address] Calcium [Mass/Vol] 8.3 mg/dL Low 8.6-10.6 [facility] Comment on above: Performed By: #### 3 4532-2 #### BEVERLEY Poe ([id number]) [facility] ([facility]) [address] [place] [address] Chloride [Moles/Vol] 101 mmol/L Normal 98-107 [facility] Comment on above: Performed By: #### 3 4532-2 #### BEVERLEY Poe ([id number]) [facility] ([facility]) [address] [place] [address] CO2 [Moles/Vol] 41 mmol/L Critically high 21-32 [facility] Comment on above: Performed By: #### 3 4532-2 #### BEVERLEY Poe ([id number]) [facility] ([facility]) [address] [place] [address] Creatinine [Mass/Vol] 0.45 mg/dL Low 0.50-1.05 [facility] Comment on above: Performed By: #### 3 4532-2 #### BEVERLEY Poe ([id number]) [facility] ([facility]) [address] [place] [address] GFR/1.73 sq M.predicted MDRD (S/P/Bld) [Vol rate/Area] mL/min/{1.73_m2} Normal >60 [facility] Comment on above: Result Comment: Calc ulations of estimated GFR are performed using the 2020 CKD-EPI Study Refit equation without the race variable for the IDMS-Traceable creatinine methods. https://jasn.asnjournals.org/content//ASN.32334 54040 Performed By: #### 3 4532-2 #### BEVERLEY Poe ([id number]) [facility] ([facility]) [address] [place] [address] Glucose [Mass/Vol] 140 mg/dL High 74-99 [facility] Comment on above: Performed By: #### 3 4532-2 #### BEVERLEY Poe ([id number]) [facility] ([facility]) [address] [place] [address] Phosphate [Mass/Vol] 3.4 mg/dL Normal 2.5-4.9 [facility] Comment on above: Result Comment: The performance characteristics of phosphorus testing in heparinized plasma have been validated by the individual laboratory site where testing is performed. Testing on heparinized plasma is not approved by the FDA; however, such approval is not necessary. Performed By: #### 3 4532-2 #### BEVERLEY Poe ([id number]) [facility] ([facility]) [address] [place] [address] Potassium [Moles/Vol] 3.8 mmol/L Normal 3.5-5.3 [facility] Comment on above: Performed By: #### 3 4532-2 #### BEVERLEY Poe ([id number]) [facility] ([facility]) [address] [place] [address] Sodium [Moles/Vol] 146 mmol/L High 136-145 [facility] Comment on above: Performed By: #### 3 4532-2 #### BEVERLEY Poe ([id number]) [facility] ([facility]) [address] [place] [address] Urea nitrogen [Mass/Vol] 12 mg/dL Normal 6-23 [facility] Comment on above: Performed By: #### 3 4532-2 #### BEVERLEY Poe ([id number]) [facility] ([facility]) [address] [place] [address] Bacteria identifiedon 2022 Bacteria identified Cx Nom (U) Test: Urine culture Specimen Source: Indwelling (Stephens) Catheter Specimen Type: Urine Specimen Date: 09/20/2023 3:34 PM Result Date: 09/22/2023 11:36 AM Result Status: Final result Abnormal: Yes Resulting Lab: [facility] [id number] [place] [address] CULTURE >100,000 Enterococcus faecium (Abnormal) Vancomycin Resistant Enterococcus (VRE) SUSCEPTIBILITY Enterococcus faecium METHOD MICROSCAN ---- ------- AMPICILLIN -- Resistant CIPROFLOXACIN -- Resistant DAPTOMYCIN -- Susceptible-dose dependent LEVOFLOXACIN -- Resistant LINEZOLID -- Susceptible NITROFURANTOIN -- Susceptible PENICILLIN -- Resistant TRIMETHOPRIM/SULFAMETHOXA ZOLE -- Resistant VANCOMYCIN -- Resistant Abnormal [facility] Comment on above: Performed By: #### 3 4532-2 #### BEVERLEY Poe ([id number]) [facility] [address] [place] [address] CBC panel Auto (Bld)on 09-20 Erythrocyte distribution width (RBC) [Ratio] 14.5 % 11.5 - 14.5 % [facility] Hematocrit (Bld) [Volume fraction] 27.7 % Low 36.0 - 46.0 % [facility] Hemoglobin (Bld) [Mass/Vol] 8.3 g/dL Low 12.0 - 16.0 g/dL [facility] Interpretation and review of laboratory results Abnormal [facility] MCH (RBC) [Entitic mass] 30.6 pg 26.0 - 34.0 pg [facility] MCHC (RBC) [Mass/Vol] 30.0 g/dL Low 32.0 - 36.0 g/dL [facility] MCV (RBC) [Entitic vol] 102 fL High 80 - 100 fL [facility] Nucleated RBC/100 WBC (Bld) [Ratio] 0.0 % [facility] Platelets (Bld) [#/Vol] 92 10*3/uL Low [facility] RBC (Bld) [#/Vol] 2.71 10*6/uL [facility] WBC (Bld) [#/Vol] 4.3 10*3/uL [facility] Erythrocyte distribution width (RBC) [Ratio] 14.5 % Normal 11.5-14.5 [facility] Comment on above: Performed By: #### 6 00-7 #### BEVERLEY Poe ([id number]) [facility] ([facility]) [address] [place] [address] Hematocrit (Bld) [Volume fraction] 27.7 % Low 36.0-46.0 [facility] Comment on above: Performed By: #### 6 -7 #### BEVERLEY Poe ([id number]) [facility] ([facility]) [address] [place] [address] Hemoglobin (Bld) [Mass/Vol] 8.3 g/dL Low 12.0-16.0 [facility] Comment on above: Performed By: #### 6 -7 #### BEVERLEY Poe ([id number]) [facility] ([facility]) [address] [place] [address] MCH (RBC) [Entitic mass] 30.6 pg Normal 26.0-34.0 [facility] Comment on above: Performed By: #### 6 -7 #### BEVERLEY Poe ([id number]) [facility] ([facility]) [address] [place] [address] MCHC (RBC) [Mass/Vol] 30.0 g/dL Low 32.0-36.0 [facility] Comment on above: Performed By: #### 6 00-7 #### BEVERLEY Poe ([id number]) [facility] ([facility]) [address] [place] [address] MCV (RBC) [Entitic vol] 102 fL High 80-100 [facility] Comment on above: Performed By: #### 6 00-7 #### BEVERLEY Poe ([id number]) [facility] ([facility]) [address] [place] [address] Nucleated RBC/100 WBC (Bld) [Ratio] 0.0 /100 WBCs Normal 0.0-0.0 [facility] Comment on above: Performed By: #### 6 00-7 #### BEVERLEY Poe ([id number]) [facility] ([facility]) [address] [place] [address] Platelets (Bld) [#/Vol] 92 x10*3/uL Low 150-450 [facility] Comment on above: Performed By: #### 6 00-7 #### BEVERLEY Poe ([id number]) [facility] ([facility]) [address] [place] [address] RBC (Bld) [#/Vol] 2.71 x10*6/uL Low 4.00-5.20 [facility] Comment on above: Performed By: #### 6 00-7 #### BEVERLEY Poe ([id number]) [facility] ([facility]) [address] [place] [address] WBC (Bld) [#/Vol] 4.3 x10*3/uL Low 4.4-11.3 [facility] Comment on above: Performed By: #### 6 00-7 #### BEVERLEY Poe ([id number]) [facility] ([facility]) [address] [place] [address] Cancer Ag 19-9on 09-20-2023 Cancer Ag 19-9 Qn 6.88 [arb'U]/mL Normal <35.00 [facility] Comment on above: Order Comment: CA 19 -9 testing is performed by chemiluminescent immunoassay using the [employer]. Values obtained with different analytic methods cannot [...] By: #### 2 341-6 #### BEVERLEY Poe ([id number]) [facility] ([facility]) [address] [place] [address] Cancer Ag 19-9 Qnon 09-20-20 Interpretation and review of laboratory results Normal [facility] Cancer Antigen 19-9on 2022 Cancer Ag 19-9 Qn 6.88 [arb'U]/mL NINF - 35.00 U/mL [facility] Glucose Test strip manual (B ld) [Mass/Vol]on 09-20-2023 Glucose [Mass/Vol] 210 mg/dL High 74 - 99 mg/dL [facility] Interpretation and review of laboratory results Abnormal [facility] Glucose [Mass/Vol] 210 mg/dL High 74-99 [facility] Comment on above: Performed By: #### 2 341-6 #### BEVERLEY Poe ([id number]) [facility] ([facility]) [address] [place] [address] Glucose [Mass/Vol] 114 mg/dL High 74 - 99 mg/dL [facility] Interpretation and review of laboratory results Abnormal [facility] Glucose [Mass/Vol] 114 mg/dL High 74-99 [facility] Comment on above: Performed By: #### 2 341-6 #### BEVERLEY Poe ([id number]) [facility] ([facility]) [address] [place] [address] Glucose [Mass/Vol] 152 mg/dL High 74 - 99 mg/dL [facility] Interpretation and review of laboratory results Abnormal [facility] Glucose [Mass/Vol] 152 mg/dL High 74-99 [facility] Comment on above: Performed By: #### 2 341-6 #### BEVERLEY Poe ([id number]) [facility] ([facility]) [address] [place] [address] Glucose [Mass/Vol] 140 mg/dL High 74 - 99 mg/dL [facility] Interpretation and review of laboratory results Abnormal [facility] Glucose [Mass/Vol] 140 mg/dL High 74-99 [facility] Comment on above: Performed By: #### 6 00-7 #### BEVERLEY Poe ([id number]) [facility] ([facility]) [address] [place] [address] Glucose [Mass/Vol] 125 mg/dL High 74 - 99 mg/dL [facility] Interpretation and review of laboratory results Abnormal [facility] Glucose [Mass/Vol] 125 mg/dL High 74-99 [facility] Comment on above: Performed By: #### 6 00-7 #### BEVERLEY Poe ([id number]) [facility] ([facility]) [address] [place] [address] Glucose [Mass/Vol] 111 mg/dL High 74 - 99 mg/dL [facility] Glucose [Mass/Vol] 213 mg/dL High 74 - 99 mg/dL [facility] Interpretation and review of laboratory results Abnormal [facility] Glucose [Mass/Vol] 109 mg/dL High 74 - 99 mg/dL [facility] Interpretation and review of laboratory results Abnormal [facility] Glucose [Mass/Vol] 109 mg/dL High 74-99 [facility] Comment on above: Performed By: #### 6 00-7 #### BEVERLEY Poe ([id number]) [facility] ([facility]) [address] [place] [address] HCV Ab Ql (S)on 09-20-2023 Interpretation and review of laboratory results Normal [facility] HIV 1+2 Ab+HIV1 p24 Agon HIV 1+2 Ab+HIV1 p24 Ag IA Ql Non-Reactive Normal Nonreactive [facility] Comment on above: Order Comment: HIV [...] By: #### 6 00-7 #### BEVERLEY Poe ([id number]) [facility] ([facility]) [address] [place] [address] HIV 1+2 Ab+HIV1 p24 Ag IA Ql on 09-20-2023 Interpretation and review of laboratory results Normal [facility] HIV 1/2 Antigen/Antibody Scr een with Reflex to Confirmationon 09-20-2023 HIV 1+2 Ab+HIV1 p24 Ag IA Ql Non-Reactive Nonreactive [facility] Hepatitis C Antibodyon 09-20 HCV Ab Ql (S) Non-Reactive Nonreactive [facility] Hepatitis C virus Abon 09-20 HCV Ab Ql (S) Non-Reactive Normal Nonreactive [facility] Comment on above: Result Comment: Resu lts from patients taking biotin supplements or receiving high-dose biotin therapy should be interpreted with caution due to possible interference with this test. Providers may contact their local laboratory for further information. Performed By: #### 6 00-7 #### BEVERLEY Poe ([id number]) [facility] ([facility]) [address] [place] [address] Magnesiumon 09-20-2023 Magnesium [Mass/Vol] 2.15 mg/dL 1.60 - 2.40 mg/dL [facility] Magnesium [Mass/Vol] 2.15 mg/dL Normal 1.60-2.40 [facility] Comment on above: Performed By: #### 6 00-7 #### BEVERLEY Poe ([id number]) [facility] ([facility]) [address] [place] [address] Magnesium [Mass/Vol]on 09-20 Interpretation and review of laboratory results Normal [facility] No Panel Informationon 09-20 [facility] MMODAL MMODAL [facility] Work Phone: No Panel InformationOrdered By: Steven Chacon on 09-20-2023 [facility] Work Phone: Renal function 2000 panelon 09-20-2023 Albumin BCP dye [Mass/Vol] 2.9 g/dL Low 3.4 - 5.0 g/dL [facility] Anion gap [Moles/Vol] 9 mmol/L Low 10 - 2 0 mmol/L [facility] Calcium [Mass/Vol] 8.7 mg/dL 8.6 - 10. 6 mg/dL [facility] Chloride [Moles/Vol] 99 mmol/L 98 - 10 7 mmol/L [facility] CO2 [Moles/Vol] 40 mmol/L Critically high 21 - 32 mmol/L [facility] Creatinine [Mass/Vol] 0.51 mg/dL 0.50 - 1.05 mg/dL [facility] GFR/1.73 sq M.predicted MDRD (S/P/Bld) [Vol rate/Area] - PINF [facility] Glucose [Mass/Vol] 117 mg/dL High 74 - 99 mg/dL [facility] Interpretation and review of laboratory results Abnormal [facility] Phosphate [Mass/Vol] 3.0 mg/dL 2.5 - 4 .9 mg/dL [facility] Potassium [Moles/Vol] 3.9 mmol/L 3.5 - 5.3 mmol/L [facility] Sodium [Moles/Vol] 144 mmol/L 136 - 145 mmol/L [facility] Urea nitrogen [Mass/Vol] 9 mg/dL 6 - 23 mg/dL [facility] Albumin BCP dye [Mass/Vol] 2.9 g/dL Low 3.4-5.0 [facility] Comment on above: Performed By: #### 6 -7 #### BEVERLEY Poe ([id number]) [facility] ([facility]) [address] [place] [address] Anion gap [Moles/Vol] 9 mmol/L Low 10-20 [facility] Comment on above: Performed By: #### 6 -7 #### BEVERLEY CARSONER L ([id number]) [facility] ([facility]) [address] [place] [address] Calcium [Mass/Vol] 8.7 mg/dL Normal 8.6-10.6 [facility] Comment on above: Performed By: #### 6 -7 #### BEVERLEY SCHMOTZER L ([id number]) [facility] ([facility]) [address] [place] [address] Chloride [Moles/Vol] 99 mmol/L Normal 98-107 [facility] Comment on above: Performed By: #### 6 00-7 #### BEVERLEY VORAMOTZER L ([id number]) [facility] ([facility]) [address] [place] [address] CO2 [Moles/Vol] 40 mmol/L Critically high 21-32 [facility] Comment on above: Performed By: #### 6 -7 #### BEVERLEY VORAMOTZER L ([id number]) [facility] ([facility]) [address] [place] [address] Creatinine [Mass/Vol] 0.51 mg/dL Normal 0.50-1.05 [facility] Comment on above: Performed By: #### 6 00-7 #### BEVERLEY VORAMOTZER L ([id number]) [facility] ([facility]) [address] [place] [address] GFR/1.73 sq M.predicted MDRD (S/P/Bld) [Vol rate/Area] mL/min/{1.73_m2} Normal >60 [facility] Comment on above: Result Comment: Calc ulations of estimated GFR are performed using the 2020 CKD-EPI Study Refit equation without the race variable for the IDMS-Traceable creatinine methods. https://jasn.asnjournals.org/content/early//ASN.71557 32718 Performed By: #### 6 00-7 #### BEVERLEY VORAMOTZER L ([id number]) [facility] ([facility]) [address] [place] [address]68 Glucose [Mass/Vol] 117 mg/dL High 74-99 [facility] Comment on above: Performed By: #### 6 -7 #### BEVERLEY DODD L ([id number]) [facility] ([facility]) [address] [place] [address]356 Phosphate [Mass/Vol] 3.0 mg/dL Normal 2.5-4.9 [facility] Comment on above: Result Comment: The performance characteristics of phosphorus testing in heparinized plasma have been validated by the individual laboratory site where testing is performed. Testing on heparinized plasma is not approved by the FDA; however, such approval is not necessary. Performed By: #### 6 -7 #### BEVERLEY Poe ([id number]) [facility] ([facility]) [address] [place] [address] Potassium [Moles/Vol] 3.9 mmol/L Normal 3.5-5.3 [facility] Comment on above: Performed By: #### 6 00-7 #### BEVERLEY DODD L ([id number]) [facility] ([facility]) [address] [place] [address] Sodium [Moles/Vol] 144 mmol/L Normal 136-145 [facility] Comment on above: Performed By: #### 6 -7 #### BEVERLEY VORAMOTZER L ([id number]) [facility] ([facility]) [address] [place] [address]202 Urea nitrogen [Mass/Vol] 9 mg/dL Normal 6-23 [facility] Comment on above: Performed By: #### 6 -7 #### BEVERLEY VORAMOTZER L ([id number]) [facility] ([facility]) [address] [place] [address] 327[address] TRANSTHORACIC ECHO (TTE) [facility] 09-20-2023 TRANSTHORACIC ECHO (TTE) [facility], [address] [place] [address] and TRANSTHORACIC ECHOCARDIOGRAM REPORT Patient Name: POLI RAMIREZ Reading Physician: [id number] Kandi Roberts MD Study Date: 09/20/2023 Ordering Provider: [id number] VARSHA SOTELO MRN/PID: [id number] Fellow: Nurse: Mare Higgins Date of /Age: 12 1950 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 Gender: F Additional Staff: Height: 165.10 cm Admit Date: 09/15/2023 Weight: 74.84 kg Admission Status: Inpatient - Routine BSA: 1.82 m2 Department Location: [facility] Non Invasive Blood Pressure: 126 /75 mmHg Study Type: TRANSTHORACIC ECHO (TTE) COMPLETE Diagnosis/ICD: Encounter for preprocedural cardiovascular examination-Z01.810 CPT Code: Echo Complete w Full Doppler-03859 Patient History: Pertinent History: Breast cancer, HTN, [...] LA Area A2C: 21.1 cm2 LA Major [place] A4C: 5.5 cm LA [place] A2C: 5.6 cm AORTA MEASUREMENTS: Normal Ranges: [...] (2.5-4.5cm2) Ao (more content not included)... Normal [facility] US Heart TransthoracicOrdere d By: Kandi Roberts on 09-20-2023 Aortic Valve Area by Continuity of Peak Velocity 1.81 [facility] Work Phone: [phone] Aortic Valve Area by Continuity of VTI 2.01 [facility] Work Phone: [phone] AV mn grad 9.0 [facility] Work Phone: [phone] AV pk grad 15.7 [facility] Work Phone: [phone] AV pk abiodun 1.98 [facility] Work Phone: [phone] LA vol index A/L 36.9 [facility] Work Phone: [phone] LV A4C EF 19.0 [facility] Work Phone: LVIDd 5.70 [facility] Work Phone: LVOT diam 1.80 [facility] Work Phone: MV avg E/e' ratio 16.03 [facility] Work Phone: MV E/A ratio 0.61 [facility] Work Phone: RV free wall pk S' 14.30 [facility] Work Phone: Tricuspid annular plane systolic excursion 2.0 [facility] Work Phone: [facility] Work Phone: US Heart Transthoracicon SYNGO [facility] Work Phone: Bacteria identified Cx Nom ( Bld)on 09-19-2023 Interpretation and review of laboratory results Normal [facility] CBC panel Auto (Bld)on 09-19 Erythrocyte distribution width (RBC) [Ratio] 14.1 % 11.5 - 14.5 % [facility] Hematocrit (Bld) [Volume fraction] 28.2 % Low 36.0 - 46.0 % [facility] Hemoglobin (Bld) [Mass/Vol] 8.4 g/dL Low 12.0 - 16.0 g/dL [facility] Interpretation and review of laboratory results Abnormal [facility] MCH (RBC) [Entitic mass] 30.9 pg 26.0 - 34.0 pg [facility] MCHC (RBC) [Mass/Vol] 29.8 g/dL Low 32.0 - 36.0 g/dL [facility] MCV (RBC) [Entitic vol] 104 fL High 80 - 100 fL [facility] Nucleated RBC/100 WBC (Bld) [Ratio] 0.0 % [facility] Platelets (Bld) [#/Vol] 90 10*3/uL Low [facility] RBC (Bld) [#/Vol] 2.72 10*6/uL [facility] WBC (Bld) [#/Vol] 4.2 10*3/uL [facility] Erythrocyte distribution width (RBC) [Ratio] 14.1 % Normal 11.5-14.5 [facility] Comment on above: Performed By: #### 5 7021-8 #### BEVERLEY Poe ([id number]) [facility] ([facility]) [id number] [place] [address] 30057 Hematocrit (Bld) [Volume fraction] 28.2 % Low 36.0-46.0 [facility] [facility] Comment on above: Performed By: #### 5 7021-8 #### BEVERLEY Poe ([id number]) [facility] ([facility]) [address] [place] [address] 89113 Hemoglobin (Bld) [Mass/Vol] 8.4 g/dL Low 12.0-16.0 [facility] Comment on above: Performed By: #### 5 7021-8 #### BEVERLEY Poe ([id number]) [facility] ([facility]) [id number] [place] [address] 18870 MCH (RBC) [Entitic mass] 30.9 pg Normal 26.0-34.0 [facility] Comment on above: Performed By: #### 5 7021-8 #### BEVERLEY Poe ([id number]) [facility] ([facility]) [id number] [place] [address] 38602 MCHC (RBC) [Mass/Vol] 29.8 g/dL Low 32.0-36.0 [facility] Comment on above: Performed By: #### 5 7021-8 #### BEVERLEY Poe ([id number]) [facility] ([facility]) [address] [place] [address] 06192 MCV (RBC) [Entitic vol] 104 fL High 80-100 [facility] Comment on above: Performed By: #### 5 7021-8 #### BEVERLEY Poe ([id number]) [facility] ([facility]) [id number] [place] [address] 25593 Nucleated RBC/100 WBC (Bld) [Ratio] 0.0 /100 WBCs Normal 0.0-0.0 [facility] Comment on above: Performed By: #### 5 7021-8 #### BEVERLEY Poe ([id number]) [facility] ([facility]) [address] [place] [address] Platelets (Bld) [#/Vol] 90 x10*3/uL Low 150-450 [facility] Comment on above: Performed By: #### 5 7021-8 #### BEVERLEY Poe ([id number]) [facility] ([facility]) [address] [place] [address] RBC (Bld) [#/Vol] 2.72 x10*6/uL Low 4.00-5.20 [facility] Comment on above: Performed By: #### 5 7021-8 #### BEVERLEY DODD L ([id number]) [facility] ([facility]) [address] [place] [address] WBC (Bld) [#/Vol] 4.2 x10*3/uL Low 4.4-11.3 [facility] Comment on above: Performed By: #### 5 7021-8 #### BEVERLEY DODD L ([id number]) [facility] ([facility]) [address] [place] [address] CT HEAD WO IV CONTRASTon CT HEAD WO IV CONTRAST Interpreted By: Susy Bright, STUDY: CT HEAD WO IV CONTRAST; 09/19/2023 3:43 pm INDICATION: Signs/Symptoms:R/o subdural hematoma, thrombocytopenia workup (fall several weeks ago). COMPARISON: None. ACCESSION NUMBER(S): [id number] ORDERING CLINICIAN: KANG JULIAN TECHNIQUE: Axial CT [...] Susy Canales 09/19/2023 4:06 PM Dictation workstation: [id number] Normal [facility] CT Head WO contraston 2022 [facility]AL [facility] Work Phone: Radiology Study observation (narrative) [facility] Work Phone: CT Head WO contrastOrdered B y: Susy Canales on 09-19-2023 [facility] Work Phone: ECG 12-LEADon 09-19-2023 ECG 12-LEAD Ventricular Rate 104 Atrial Rate 104 P-R Interval 150 QRS Duration 136 Q-T Interval 352 QTC Calculation(Bazett) 462 P Pe[place] 67 R Peoria -54 T [place] 70 QRS Count 17 Q Onset 212 P Onset 137 P Offset 193 T Offset 388 QTC Fredericia 422 Diagnosis Sinus tachycardia with occasional Premature ventricular complexes Left bundle branch block Abnormal ECG When compared with ECG of 19-SEP-2023 12:28, (unconfirmed) Premature ventricular complexes are now Present Confirmed by Simon Piedra ([id number]) on 09/27/2023 12:27:49 PM Normal [facility] ECG 12-LEAD Ventricular Rate 96 Atrial Rate 96 P-R Interval 156 QRS Duration 136 Q-T Interval 380 QTC Calculation(Bazett) 480 P Pe[place] 61 R Peoria -49 T Pe[place] 77 QRS Count 16 Q Onset 211 P Onset 133 P Offset 197 T Offset 401 QTC Fredericia 444 Diagnosis Sinus rhythm with occasional Premature ventricular complexes Left axis deviation Left bundle branch block Abnormal ECG No previous ECGs available Confirmed by Harrison Piedra ([id number]) on 09/26/2023 9:00:49 AM Normal [facility] Gas panel (BldA)Ordered By: Allyssa Bach on 09-19-2023 Base excess Calc (Bld) [Moles/Vol] 14.9 mmol/L High -2.0 - 3.0 mmol/L [facility] CO2 (Bld) [Partial pressure] 61 mm[Hg] High [facility] HCO3 (Bld) [Moles/Vol] 41.4 mmol/L High 22.0 - 26.0 mmol/L [facility] Inhaled oxygen concentration 28 % [facility] Interpretation and review of laboratory results Abnormal [facility] Oxygen (Bld) [Partial pressure] 121 mm[Hg] High [facility] Oxyhemoglobin (BldA) [Mass fraction] 96.7 % 94.0 - 98.0 % [facility] pH (Bld) 7.44 [pH] High 7.38 - 7.42 pH [facility] Gas panel (BldA)on Base excess Calc (Bld) [Moles/Vol] 14.9 mmol/L High -2.0-3.0 [facility] Comment on above: Order Comment: While on baseline/ home level of oxygen Performed By: #### 6 00-7 #### BEVERLEY Poe ([id number]) [facility] ([facility]) [id number] [place] [address] 67140 CO2 (Bld) [Partial pressure] 61 mm Hg High 38-42 [facility] Comment on above: Order Comment: While on baseline/ home level of oxygen Performed By: #### 6 00-7 #### BEVERLEY PATELTZER L ([id number]) [facility] ([facility]) [address] [place] [address] HCO3 (Bld) [Moles/Vol] 41.4 mmol/L High 22.0-26.[address] [facility] Comment on above: Order Comment: While on baseline/ home level of oxygen Performed By: #### 6 00-7 #### BEVERLEY VORAMOTZER L ([id number]) [facility] ([facility]) [id number] [place] [address] 57542 Inhaled oxygen concentration 28 % Normal [facility] Comment on above: Order Comment: While on baseline/ home level of oxygen Performed By: #### 6 00-7 #### BEVERLEY Poe ([id number]) [facility] ([facility]) [address] [place] [address] 16676 Oxygen (Bld) [Partial pressure] 121 mm Hg High 85-95 [facility] Comment on above: Order Comment: While on baseline/ home level of oxygen Performed By: #### 6 00-7 #### BEVERLEY Poe ([id number]) [facility] ([facility]) [address] [place] [address] 17438 Oxyhemoglobin (BldA) [Mass fraction] 96.7 % Normal 94.0-98.0 [facility] Comment on above: Order Comment: While on baseline/ home level of oxygen Performed By: #### 6 -7 #### BEVERLEY Poe ([id number]) [facility] ([facility]) [address] [place] [address] 90549 pH (Bld) 7.44 [pH] High 7.38-7.42 [facility] Comment on above: Order Comment: While on baseline/ home level of oxygen Performed By: #### 6 -7 #### BEVERLEY Poe ([id number]) [facility] ([facility]) [address] [place] [address] 49851 Glucose Test strip manual (B ld) [Mass/Vol]on 09-19-2023 Glucose [Mass/Vol] 213 mg/dL High 74-99 [facility] Comment on above: Performed By: #### 6 00-7 #### BEVERLEY DODD L ([id number]) [facility] ([facility]) [address] [place] [address] 12588 Glucose [Mass/Vol] 158 mg/dL High 74 - 99 mg/dL [facility] Interpretation and review of laboratory results Abnormal [facility] Glucose [Mass/Vol] 158 mg/dL High 74-99 [facility] Comment on above: Performed By: #### 6 00-7 #### BEVERLEY Poe ([id number]) [facility] ([facility]) [address] [place] [address] 29380 Glucose [Mass/Vol] 98 mg/dL 74 - 99 mg/dL [facility] Interpretation and review of laboratory results Normal [facility] Glucose [Mass/Vol] 98 mg/dL Normal 74-99 [facility] Comment on above: Performed By: #### 6 00-7 #### BEVERLEY Poe ([id number]) [facility] ([facility]) [address] [place] [address] 43498 Glucose [Mass/Vol] 111 mg/dL High 74-99 [facility] Comment on above: Performed By: #### 6 00-7 #### BEVERLEY Poe ([id number]) [facility] ([facility]) [address] [place] [address] 24248 Glucose [Mass/Vol] 164 mg/dL High 74 - 99 mg/dL [facility] Interpretation and review of laboratory results Abnormal [facility] Glucose [Mass/Vol] 164 mg/dL High 74-99 [facility] Comment on above: Performed By: #### 5 7021-8 #### BEVERLEY Poe ([id number]) [facility] ([facility]) [address] [place] [address] 78568 Glucose [Mass/Vol] 124 mg/dL High 74 - 99 mg/dL [facility] Interpretation and review of laboratory results Abnormal [facility] Glucose [Mass/Vol] 124 mg/dL High 74-99 [facility] Comment on above: Performed By: #### 5 7021-8 #### BEVERLEY Poe ([id number]) [facility] ([facility]) [address] [place] [address] 92912 HBV surface Ag IA Qlon 09-19 Interpretation and review of laboratory results Normal [facility] Hepatitis B Surface Antigeno n 09-19-2023 HBV surface Ag IA Ql Non-Reactive Nonreactive U [facility] - Microbiology an d Antimicrobial susceptibilityon 09-19-2023 Bacteria identified Cx Nom (Bld) No growth at 4 days - FINAL REPORT [facility] Magnesiumon 09-19-2023 Magnesium [Mass/Vol] 2.22 mg/dL 1.60 - 2.40 mg/dL [facility] Magnesium [Mass/Vol] 2.22 mg/dL Normal 1.60-2.40 [facility] Comment on above: Performed By: #### 6 00-7 #### BEVERLEY Poe ([id number]) [facility] ([facility]) [address] [place], [place] [id number] Magnesium [Mass/Vol]on 09-19 Interpretation and review of laboratory results Normal [facility] Natriuretic peptide B [Mass/ Vol]on 09-19-2023 Interpretation and review of laboratory results Abnormal [facility] Natriuretic peptide B (Bld) [Mass/Vol] 154 pg/mL High 0 - 99 pg/mL [facility] Natriuretic peptide B (Bld) [Mass/Vol] 154 pg/mL High 0-99 [facility] Comment on above: Order Comment: <100 pg/mL - Heart failure hnzewiac884-514 pg/mL - Intermediate probability of acute heart [...] By: #### 6 00-7 #### BEVERLEY Poe ([id number]) [facility] ([facility]) [address] [place] [address] 65368 No Panel Informationon 09-19 Radiology Study observation (narrative) [facility] Work Phone: [facility] PT and aPTT panel Coag (PPP) on 09-19-2023 aPTT Coag (PPP) [Time] 32 s [facility] INR Coag (PPP) [Relative time] 1.1 {INR} 0.9 - 1.1 [facility] Interpretation and review of laboratory results Normal [facility] PT Coag (PPP) [Time] 12.3 s [facility] aPTT Coag (PPP) [Time] 32 s Normal 27-38 [facility] Comment on above: Order Comment: The A PTT is no longer used for monitoring Unfractionated Heparin Therapy. For monitoring Heparin Therapy, use the Heparin Assay. Performed By: #### 5 7021-8 #### BEVERLEY Poe ([id number]) [facility] ([facility]) [address] [place] [address] 87314 INR Coag (PPP) [Relative time] 1.1 Normal 0.9-1.1 [facility] Comment on above: Order Comment: The A PTT is no longer used for monitoring Unfractionated Heparin Therapy. For monitoring Heparin Therapy, use the Heparin Assay. Performed By: #### 5 7021-8 #### BEVERLEY Poe ([id number]) [facility] ([facility]) [address] [place] [address] 87508 PT Coag (PPP) [Time] 12.3 s Normal 9.8-12.8 [facility] Comment on above: Order Comment: The A PTT is no longer used for monitoring Unfractionated Heparin Therapy. For monitoring Heparin Therapy, use the Heparin Assay. Performed By: #### 5 7021-8 #### BEVERLEY Poe ([id number]) [facility] ([facility]) [address] [place] [address] 74945 Renal function 2000 panelon 09-19-2023 Albumin BCP dye [Mass/Vol] 2.8 g/dL Low 3.4 - 5.0 g/dL [facility] Anion gap [Moles/Vol] 14 mmol/L 10 - 2 0 mmol/L [facility] Calcium [Mass/Vol] 8.2 mg/dL Low 8.6 - 10. 6 mg/dL [facility] Chloride [Moles/Vol] 101 mmol/L 98 - 10 7 mmol/L [facility] CO2 [Moles/Vol] 35 mmol/L High 21 - 32 mmol/L [facility] Creatinine [Mass/Vol] 0.40 mg/dL Low 0.50 - 1.05 mg/dL [facility] GFR/1.73 sq M.predicted MDRD (S/P/Bld) [Vol rate/Area] - PINF [facility] Glucose [Mass/Vol] 122 mg/dL High 74 - 99 mg/dL [facility] Interpretation and review of laboratory results Abnormal [facility] Phosphate [Mass/Vol] 2.9 mg/dL 2.5 - 4 .9 mg/dL [facility] Potassium [Moles/Vol] 3.9 mmol/L 3.5 - 5.3 mmol/L [facility] Sodium [Moles/Vol] 146 mmol/L High 136 - 145 mmol/L [facility] Urea nitrogen [Mass/Vol] 9 mg/dL 6 - 23 mg/dL [facility] Albumin BCP dye [Mass/Vol] 2.8 g/dL Low 3.4-5.0 [facility] Comment on above: Performed By: #### 6 00-7 #### BEVERLEY Poe ([id number]) [facility] ([facility]) [address] [place] [address] 64940 Anion gap [Moles/Vol] 14 mmol/L Normal 10-20 [facility] Comment on above: Performed By: #### 6 00-7 #### BEVERLEY Poe ([id number]) [facility] ([facility]) [address] [place] [address] 87761 Calcium [Mass/Vol] 8.2 mg/dL Low 8.6-10.6 [facility] Comment on above: Performed By: #### 6 00-7 #### BEVERLEY Poe ([id number]) [facility] ([facility]) [address] [place] [address] 55813 Chloride [Moles/Vol] 101 mmol/L Normal 98-107 [facility] Comment on above: Performed By: #### 6 00-7 #### BEVERLEY Poe ([id number]) [facility] ([facility]) [address] [place] [address] CO2 [Moles/Vol] 35 mmol/L High 21-32 [facility] Comment on above: Performed By: #### 6 00-7 #### BEVERLEY Poe ([id number]) [facility] ([facility]) [address] [place] [address] Creatinine [Mass/Vol] 0.40 mg/dL Low 0.50-1.05 [facility] Comment on above: Performed By: #### 6 00-7 #### BEVERLEY Poe ([id number]) [facility] ([facility]) [address] [place] [address] GFR/1.73 sq M.predicted MDRD (S/P/Bld) [Vol rate/Area] mL/min/{1.73_m2} Normal >60 [facility] Comment on above: Result Comment: Calc ulations of estimated GFR are performed using the 2020 CKD-EPI Study Refit equation without the race variable for the IDMS-Traceable creatinine methods. https://jasn.asnjournals.org/content//ASN.36865 12971 Performed By: #### 6 00-7 #### BEVERLEY Poe ([id number]) [facility] ([facility]) [address] [place] [address] Glucose [Mass/Vol] 122 mg/dL High 74-99 [facility] Comment on above: Performed By: #### 6 00-7 #### BEVERLEY Poe ([id number]) [facility] ([facility]) [address] [place] [address] Phosphate [Mass/Vol] 2.9 mg/dL Normal 2.5-4.9 [facility] Comment on above: Result Comment: The performance characteristics of phosphorus testing in heparinized plasma have been validated by the individual laboratory site where testing is performed. Testing on heparinized plasma is not approved by the FDA; however, such approval is not necessary. Performed By: #### -7 #### BEVERLEY SCHMOTZER L ([id number]) [facility] ([facility]) [address] [place] [address] Potassium [Moles/Vol] 3.9 mmol/L Normal 3.5-5.3 [facility] Comment on above: Performed By: #### 6 00-7 #### BEVERLEY SCHMOTZER L ([id number]) [facility] ([facility]) [address] [place] [address] Sodium [Moles/Vol] 146 mmol/L High 136-145 [facility] Comment on above: Performed By: #### 6 00-7 #### BEVERLEY SCHMOTZER L ([id number]) [facility] ([facility]) [address] [place] [address] 46829 Urea nitrogen [Mass/Vol] 9 mg/dL Normal 6-23 [facility] Comment on above: Performed By: #### 6 00-7 #### BEVERLEY SCHMOTZER L ([id number]) [facility] ([facility]) [address] [place] [address] 92976 US ABDOMEN LIMITED LIVERon 1 11-19-2022 US ABDOMEN LIMITED LIVER Interpreted By: Steven Chacon and Ebai Jerky STUDY: US ABDOMEN LIMITED LIVER; [facility] US ABDOMINAL/PELVIC DUPLEX COMPLETE; 09/19/2023 6:30 pm INDICATION: 72 y/o F with Signs/Symptoms:Throbocyto penia workup; Signs/Symptoms:per doctor request. COMPARISON: None. ACCESSION NUMBER(S): [id number]; [id number] ORDERING CLINICIAN: KANG JULIAN TECHNIQUE: Multiple images of the right upper quadrant were obtained. Gates scale, color Doppler and spectral Doppler waveform analysis was performed. This examination was interpreted at [facility]. FINDINGS: The liver measures 22.6 cm [...] as stated. This study was interpreted at [facility], [place], [place]. MACRO: None Signed by: Steven Chacon 09/20/2023 5:44 AM Dictation workstation: [id number] Normal [facility] Comment on above: Order Comment: Pleas e include portal vein flow velocitys [facility] US ABDOMINAL/PELVIC DUP SRINATH COMPLETEon 09-19-2023 VAS US ABDOMINAL/PELVIC DUPLEX COMPLETE Interpreted By: Steven Chacon, and Kim Sheikh STUDY: US ABDOMEN LIMITED LIVER; VASC US ABDOMINAL/PELVIC DUPLEX COMPLETE; 09/19/2023 6:30 pm INDICATION: 72 y/o F with Signs/Symptoms:Throbocyto penia workup; Signs/Symptoms:per doctor request. COMPARISON: None. ACCESSION NUMBER(S): [id number]; [id number] ORDERING CLINICIAN: KANG JULIAN TECHNIQUE: Multiple images of the right upper quadrant were obtained. Gates scale, color Doppler and spectral Doppler waveform analysis was performed. This examination was interpreted at [facility]. FINDINGS: The liver measures 22.6 cm [...] as stated. This study was interpreted at [place], [place]. MACRO: None Signed by: Steven Chacon 09/20/2023 5:44 AM Dictation workstation: [id number] [facility] Comment on above: Order Comment: Pleas e include portal vein flow velocitys XR CHEST 1 VIEWon 09-19-2023 XR CHEST 1 VIEW Interpreted By: Delfin Clemens and [place] Lesley STUDY: XR CHEST 1 VIEW; 09/19/2023 8:46 am INDICATION: Signs/Symptoms:copd on oxygen. COMPARISON: Outside hospital CT chest 03/20/2014 ACCESSION NUMBER(S): [id number] ORDERING CLINICIAN: RIMA APPLE FINDINGS: Single AP [...] as stated. This study was interpreted at [facility], [place], [place]. MACRO: None Signed by: Delfin Menezes 09/19/2023 9:36 AM Dictation workstation: [id number] Normal [facility] XR Chest Single viewon 09-19 [facility] MM[facility]AL [facility] MM[facility] Work Phone: Radiology Study observation (narrative) [facility] Work Phone: XR Chest Single viewOrdered By: Delfin Menezes on 09-19-2023 [facility] Work Phone: CBC panel Auto (Bld)on 09-18 Erythrocyte distribution width (RBC) [Ratio] 13.8 % 11.5 - 14.5 % [facility] Hematocrit (Bld) [Volume fraction] 26.9 % Low 36.0 - 46.0 % [facility] Hemoglobin (Bld) [Mass/Vol] 8.0 g/dL Low 12.0 - 16.0 g/dL [facility] Interpretation and review of laboratory results Abnormal [facility] MCH (RBC) [Entitic mass] 30.3 pg 26.0 - 34.0 pg [facility] MCHC (RBC) [Mass/Vol] 29.7 g/dL Low 32.0 - 36.0 g/dL [facility] MCV (RBC) [Entitic vol] 102 fL High 80 - 100 fL [facility] Nucleated RBC/100 WBC (Bld) [Ratio] 0.0 % [facility] Platelets (Bld) [#/Vol] 91 10*3/uL Low [facility] RBC (Bld) [#/Vol] 2.64 10*6/uL [facility] WBC (Bld) [#/Vol] 4.2 10*3/uL [facility] Erythrocyte distribution width (RBC) [Ratio] 13.8 % Normal 11.5-14.5 [facility] Comment on above: Performed By: #### 2 4323-8 #### BEVERLEY Poe ([id number]) [facility] ([facility]) [id number] [place] [address] 11824 Hematocrit (Bld) [Volume fraction] 26.9 % Low 36.0-46.0 [facility] Comment on above: Performed By: #### 2 4323-8 #### BEVERLEY Poe ([id number]) [facility] ([facility]) [id number] [place] [address] 63364 Hemoglobin (Bld) [Mass/Vol] 8.0 g/dL Low 12.0-16.0 [facility] Comment on above: Performed By: #### 2 4323-8 #### BEVERLEY Poe ([id number]) [facility] ([facility]) [id number] [place] [address] 75752 MCH (RBC) [Entitic mass] 30.3 pg Normal 26.0-34.0 [facility] Comment on above: Performed By: #### 2 4323-8 #### BEVERLEY Poe ([id number]) [facility] ([facility]) [address] [place] [address] 06697 MCHC (RBC) [Mass/Vol] 29.7 g/dL Low 32.0-36.0 [facility] Comment on above: Performed By: #### 2 4323-8 #### BEVERLEY Poe ([id number]) [facility] ([facility]) [address] [place] [address] 95055 MCV (RBC) [Entitic vol] 102 fL High 80-100 [facility] Comment on above: Performed By: #### 2 4323-8 #### BEVERLEY Poe ([id number]) [facility] ([facility]) [address] [place] [address] 13262 Nucleated RBC/100 WBC (Bld) [Ratio] 0.0 /100 WBCs Normal 0.0-0.0 [facility] Comment on above: Performed By: #### 2 4323-8 #### BEVERLEY Poe ([id number]) [facility] ([facility]) [id number] [place] [address] 32543 Platelets (Bld) [#/Vol] 91 x10*3/uL Low 150-450 [facility] Comment on above: Performed By: #### 2 4323-8 #### BEVERLEY Poe ([id number]) [facility] ([facility]) [address] [place] [address] 15042 RBC (Bld) [#/Vol] 2.64 x10*6/uL Low 4.00-5.20 [facility] Comment on above: Performed By: #### 2 4323-8 #### BEVERLEY Poe ([id number]) [facility] ([facility]) [id number] [place] [address] 48492 WBC (Bld) [#/Vol] 4.2 x10*3/uL Low 4.4-11.3 [facility] Comment on above: Performed By: #### 2 4323-8 #### BEVERLEY Poe ([id number]) [facility] ([facility]) [address] [place] [address] 67017 Cancer Ag 125on 09-18-2023 Cancer Ag 125 Qn 22.0 [arb'U]/mL Normal 0.0-30.2 [facility] Comment on above: Order Comment: CA 12 5 testing is performed by chemiluminescent immunoassay using the [employer]. Values obtained with different analytic methods cannot [...] By: #### 3 4532-2 #### BEVERLEY Poe ([id number]) [facility] ([facility]) [address] [place] [address] 26852 Ferritinon 09-18-2023 Ferritin [Mass/Vol] 344 ng/mL High 8 - 150 ng/mL [facility] Ferritin [Mass/Vol] 344 ng/mL High 8-150 [facility] Comment on above: Performed By: #### 5 7021-8 #### BEVERLEY Poe ([id number]) [facility] ([facility]) [address] [place] [address] 05966 Glucose Test strip manual (B ld) [Mass/Vol]on 09-18-2023 Glucose [Mass/Vol] 119 mg/dL High 74 - 99 mg/dL [facility] Interpretation and review of laboratory results Abnormal [facility] Glucose [Mass/Vol] 119 mg/dL High 74-99 [facility] Comment on above: Performed By: #### 5 7021-8 #### BEVERLEY Poe ([id number]) [facility] ([facility]) [address] [place] [address] 44758 Glucose [Mass/Vol] 135 mg/dL High 74 - 99 mg/dL [facility] Interpretation and review of laboratory results Abnormal [facility] Glucose [Mass/Vol] 135 mg/dL High 74-99 [facility] Comment on above: Performed By: #### 2 4323-8 #### BEVERLEY Poe ([id number]) [facility] ([facility]) [address] [place] [address] 20011 Glucose [Mass/Vol] 108 mg/dL High 74 - 99 mg/dL [facility] Interpretation and review of laboratory results Abnormal [facility] Glucose [Mass/Vol] 108 mg/dL High 74-99 [facility] Comment on above: Performed By: #### 2 4323-8 #### BEVERLEY Poe ([id number]) [facility] ([facility]) [address] [place] [address] 47492 HbA1c (Bld) [Mass fraction]o n 09-18-2023 Average glucose Estimated from glycated hemoglobin (Bld) [Mass/Vol] 91 mg/dL Not Established [facility] Average glucose Estimated from glycated hemoglobin (Bld) [Mass/Vol] 91 mg/dL Normal Not Established [facility] Comment on above: Order Comment: Diagn osis of Wizvvglc-AzfnsmFcs-Arxztzfj: < or = 5.6%Increased risk for developing diabetes: 5.7-6.4%Diagnostic of diabetes: > or = 6.5%Monitoring of DiabetesAge (y)....................... Therapeutic Goal (%)Adults: >18.........................<7.0Pediatrics: 13-18...................<7.5Pediatrics: 7-12....................<8.0Pediatrics: 0-6..................... 7.5-8.5American Diabetes Association. Diabetes Care 33(S1)Nov 2009 Performed By: #### 2 4323-8 #### BEVERLEY Poe ([id number]) [facility] ([facility]) [address] [place] [id number] Hemoglobin A1con 09-18-2023 HbA1c (Bld) [Mass fraction] 4.8 % see below [facility] Hemoglobin A1c/Hemoglobin.to daphne 09-18-2023 HbA1c (Bld) [Mass fraction] 4.8 % Normal see below [facility] Comment on above: Order Comment: Diagn osis of Sarhhcqn-NswkiiMsr-Csyaehtd: < or = 5.6%Increased risk for developing diabetes: 5.7-6.4%Diagnostic of diabetes: > or = 6.5%Monitoring of DiabetesAge (y)....................... Therapeutic Goal (%)Adults: >18.........................<7.0Pediatrics: 13-18...................<7.5Pediatrics: 7-12....................<8.0Pediatrics: 0-6..................... 7.5-8.5American Diabetes Association. Diabetes Care 33(S1), Nov 2009 Performed By: #### 2 4323-8 #### BEVERLEY Poe ([id number]) [facility] ([facility]) [address] [place] [address] Hepatic function 2000 panelo n 09-18-2023 Albumin BCP dye [Mass/Vol] 2.7 g/dL Low 3.4 - 5.0 g/dL [facility] ALP [Catalytic activity/Vol] 47 U/L 33 - 136 U/L [facility] ALT With P-5'-P [Catalytic activity/Vol] 7 U/L 7 - 45 U/L [facility] AST With P-5'-P [Catalytic activity/Vol] 10 U/L 9 - 39 U/L [facility] Bilirubin [Mass/Vol] 0.4 mg/dL 0.0 - 1 .2 mg/dL [facility] Bilirubin.direct [Mass/Vol] 0.1 mg/dL 0.0 - 0.3 mg/dL [facility] Interpretation and review of laboratory results Abnormal [facility] Protein [Mass/Vol] 5.7 g/dL Low 6.4 - 8.2 g/dL [facility] Albumin BCP dye [Mass/Vol] 2.7 g/dL Low 3.4-5.0 [facility] Comment on above: Performed By: #### 2 4323-8 #### BEVERLEY Poe ([id number]) [facility] ([facility]) [address] [place] [address] ALP [Catalytic activity/Vol] 47 U/L Normal 33-136 [facility] Comment on above: Performed By: #### 2 4323-8 #### BEVERLEY Poe ([id number]) [facility] ([facility]) [address] [place] [address] 03903 ALT With P-5'-P [Catalytic activity/Vol] 7 U/L Normal 7-45 [facility] Comment on above: Result Comment: Ирина ents treated with Sulfasalazine may generate falsely decreased results for ALT. Performed By: #### 2 4323-8 #### BEVERLEY Poe ([id number]) [facility] ([facility]) [address] [place] [address] AST With P-5'-P [Catalytic activity/Vol] 10 U/L Normal 9-39 [facility] Comment on above: Performed By: #### 2 4323-8 #### BEVERLEY Poe ([id number]) [facility] ([facility]) [address] [place] [address] Bilirubin [Mass/Vol] 0.4 mg/dL Normal 0.0-1.2 [facility] Comment on above: Performed By: #### 2 4323-8 #### BEVERLEY Poe ([id number]) [facility] ([facility]) [address] [place] [address] 30980 Bilirubin.direct [Mass/Vol] 0.1 mg/dL Normal 0.0-0.3 [facility] Comment on above: Performed By: #### 2 4323-8 #### BEVERLEY Poe ([id number]) [facility] ([facility]) [address] [place] [address] 18179 Protein [Mass/Vol] 5.7 g/dL Low 6.4-8.2 [facility] Comment on above: Performed By: #### 2 4323-8 #### BEVERLEY Poe ([id number]) [facility] ([facility]) [address] [place], [place] [id number] Hepatitis B virus surface Ag on 09-18-2023 HBV surface Ag IA Ql Non-Reactive Normal Nonreactive U [facility] Comment on above: Result Comment: Biot in interference may cause falsely decreased results. Patients taking a Biotin dose of up to 5 mg/day should refrain from taking Biotin for 24 hours before sample collection. Providers may contact their local laboratory for further information. Performed By: #### 6 00-7 #### BEVERLEY Poe ([id number]) [facility] ([facility]) [address] [place], [place] [phone] Iron and Iron binding capaci ty panelon 09-18-2023 Iron [Mass/Vol] 33 ug/dL Low 35 - 150 ug/dL [facility] Iron binding capacity [Mass/Vol] 164 ug/dL Low 240 - 445 ug/dL [facility] Iron binding capacity.unsaturated [Mass/Vol] 131 ug/dL 110 - 370 ug/dL [facility] Iron saturation [Mass fraction] 20 % Low 25 - 45 % [facility] Iron [Mass/Vol] 33 ug/dL Low 35-150 [facility] Comment on above: Performed By: #### 5 7021-8 #### BEVERLEY Poe ([id number]) [facility] ([facility]) [address] [place] [address] 28932 Iron binding capacity [Mass/Vol] 164 ug/dL Low 240-445 [facility] Comment on above: Performed By: #### 5 7021-8 #### BEVERLEY Poe ([id number]) [facility] ([facility]) [address] [place] [address] 19338 Iron binding capacity.unsaturated [Mass/Vol] 131 ug/dL Normal 110-370 [facility] Comment on above: Performed By: #### 5 7021-8 #### BEVERLEY Poe ([id number]) [facility] ([facility]) [address] [place] [address] 83563 Iron saturation [Mass fraction] 20 % Low 25-45 [facility] Comment on above: Performed By: #### 5 7021-8 #### BEVERLEY Peo ([id number]) [facility] ([facility]) [address] [place] [address] 05626 Magnesiumon 09-18-2023 Magnesium [Mass/Vol] 1.80 mg/dL 1.60 - 2.40 mg/dL [facility] Magnesium [Mass/Vol] 1.80 mg/dL Normal 1.60-2.40 [facility] Comment on above: Performed By: #### 2 4323-8 #### BEVERLEY Poe ([id number]) [facility] ([facility]) [address] [place] [address] 10602 Magnesium [Mass/Vol]on 09-18 Interpretation and review of laboratory results Normal [facility] Natriuretic peptide B [Mass/ Vol]on 09-18-2023 Interpretation and review of laboratory results Abnormal [facility] Natriuretic peptide B (Bld) [Mass/Vol] 144 pg/mL High 0 - 99 pg/mL [facility] Natriuretic peptide B (Bld) [Mass/Vol] 144 pg/mL High 0-99 [facility] Comment on above: Order Comment: <100 pg/mL - Heart failure [id number] pg/mL - Intermediate probability of acute heart [...] By: #### 5 7021-8 #### BEVERLEY Poe ([id number]) [facility] ([facility]) [address] [place] [address] No Panel Informationon 09-18 Interpretation and review of laboratory results Abnormal [facility] Prealbuminon 09-18-2023 Prealbumin [Mass/Vol] 11.4 mg/dL Low 18.0 - 40.0 mg/dL [facility] Prealbumin [Mass/Vol] 11.4 mg/dL Low 18.0-40.0 [facility] Comment on above: Performed By: #### 5 7021-8 #### BEVERLEY Poe ([id number]) [facility] ([facility]) [address] [place] [address] Prealbumin [Mass/Vol]on Interpretation and review of laboratory results Abnormal [facility] Renal function 2000 panelon 09-18-2023 Albumin BCP dye [Mass/Vol] 2.8 g/dL Low 3.4 - 5.0 g/dL [facility] Anion gap [Moles/Vol] 12 mmol/L 10 - 2 0 mmol/L [facility] Calcium [Mass/Vol] 8.6 mg/dL 8.6 - 10. 6 mg/dL [facility] Chloride [Moles/Vol] 99 mmol/L 98 - 10 7 mmol/L [facility] CO2 [Moles/Vol] 39 mmol/L High 21 - 32 mmol/L [facility] Creatinine [Mass/Vol] 0.37 mg/dL Low 0.50 - 1.05 mg/dL [facility] GFR/1.73 sq M.predicted MDRD (S/P/Bld) [Vol rate/Area] - PINF [facility] Glucose [Mass/Vol] 99 mg/dL 74 - 99 mg/dL [facility] Interpretation and review of laboratory results Abnormal [facility] Phosphate [Mass/Vol] 2.8 mg/dL 2.5 - 4 .9 mg/dL [facility] Potassium [Moles/Vol] 3.6 mmol/L 3.5 - 5.3 mmol/L [facility] Sodium [Moles/Vol] 146 mmol/L High 136 - 145 mmol/L [facility] Urea nitrogen [Mass/Vol] 11 mg/dL 6 - 23 mg/dL [facility] Albumin BCP dye [Mass/Vol] 2.8 g/dL Low 3.4-5.0 [facility] Comment on above: Performed By: #### 2 4323-8 #### BEVERLEY Poe ([id number]) [facility] ([facility]) [address] [place] [address] 19270 Anion gap [Moles/Vol] 12 mmol/L Normal 10-20 [facility] Comment on above: Performed By: #### 2 4323-8 #### BEVERLEY Poe ([id number]) [facility] ([facility]) [address] [place] [address] 70180 Calcium [Mass/Vol] 8.6 mg/dL Normal 8.6-10.6 [facility] Comment on above: Performed By: #### 2 4323-8 #### BEVERLEY DODD L ([id number]) [facility] ([facility]) [address] [place] [address] 57597 Chloride [Moles/Vol] 99 mmol/L Normal 98-107 [facility] Comment on above: Performed By: #### 2 4323-8 #### BEVERLEY Poe ([id number]) [facility] ([facility]) [address] [place] [address] 05865 CO2 [Moles/Vol] 39 mmol/L High 21-32 [facility] Comment on above: Performed By: #### 2 4323-8 #### BEVERLEY Poe ([id number]) [facility] ([facility]) [address] [place] [address] Creatinine [Mass/Vol] 0.37 mg/dL Low 0.50-1.05 [facility] Comment on above: Performed By: #### 2 4323-8 #### BEVERLEY Poe ([id number]) [facility] ([facility]) [address] [place] [address] GFR/1.73 sq M.predicted MDRD (S/P/Bld) [Vol rate/Area] mL/min/{1.73_m2} Normal >60 [facility] Comment on above: Result Comment: Calc ulations of estimated GFR are performed using the 2020 CKD-EPI Study Refit equation without the race variable for the IDMS-Traceable creatinine methods. https://jasn.asnjournals.org/content//ASN.67641 43358 Performed By: #### 2 4323-8 #### BEVERLEY Poe ([id number]) [facility] ([facility]) [address] [place] [address] Glucose [Mass/Vol] 99 mg/dL Normal 74-99 [facility] Comment on above: Performed By: #### 2 4323-8 #### BEVERLEY Poe ([id number]) [facility] ([facility]) [address] [place] [address] Phosphate [Mass/Vol] 2.8 mg/dL Normal 2.5-4.9 [facility] Comment on above: Result Comment: The performance characteristics of phosphorus testing in heparinized plasma have been validated by the individual laboratory site where testing is performed. Testing on heparinized plasma is not approved by the FDA; however, such approval is not necessary. Performed By: #### 2 4323-8 #### BEVERLEY Poe ([id number]) [facility] ([facility]) [address] [place] [address] Potassium [Moles/Vol] 3.6 mmol/L Normal 3.5-5.3 [facility] Comment on above: Performed By: #### 2 4323-8 #### BEVERLEY Poe ([id number]) [facility] ([facility]) [address] [place] [address] Sodium [Moles/Vol] 146 mmol/L High 136-145 [facility] Comment on above: Performed By: #### 2 4323-8 #### BEVERLEY Poe ([id number]) [facility] ([facility]) [address] [place] [address] Urea nitrogen [Mass/Vol] 11 mg/dL Normal 6-23 [facility] Comment on above: Performed By: #### 2 4323-8 #### BEVERLEY Poe ([id number]) [facility] ([facility]) [address] [place] [address] 76893 CBC panel Auto (Bld)on 09-17 Erythrocyte distribution width (RBC) [Ratio] 13.8 % 11.5 - 14.5 % [facility] Hematocrit (Bld) [Volume fraction] 27.0 % Low 36.0 - 46.0 % [facility] Hemoglobin (Bld) [Mass/Vol] 8.2 g/dL Low 12.0 - 16.0 g/dL [facility] Interpretation and review of laboratory results Abnormal [facility] MCH (RBC) [Entitic mass] 30.6 pg 26.0 - 34.0 pg [facility] MCHC (RBC) [Mass/Vol] 30.4 g/dL Low 32.0 - 36.0 g/dL [facility] MCV (RBC) [Entitic vol] 101 fL High 80 - 100 fL [facility] Nucleated RBC/100 WBC (Bld) [Ratio] 0.0 % [facility] Platelets (Bld) [#/Vol] 88 10*3/uL Low [facility] RBC (Bld) [#/Vol] 2.68 10*6/uL [facility] WBC (Bld) [#/Vol] 3.7 10*3/uL [facility] Erythrocyte distribution width (RBC) [Ratio] 13.8 % Normal 11.5-14.5 [facility] Comment on above: Performed By: #### 1 9123-9 #### BEVELREY Poe ([id number]) [facility] ([facility]) [address] [place] [address] 44236 Hematocrit (Bld) [Volume fraction] 27.0 % Low 36.0-46.0 [facility] Comment on above: Performed By: #### 1 9123-9 #### BEVERLEY Poe ([id number]) [facility] ([facility]) [address] [place] [address] 70453 Hemoglobin (Bld) [Mass/Vol] 8.2 g/dL Low 12.0-16.0 [facility] Comment on above: Performed By: #### 1 9123-9 #### BEVERLEY Poe ([id number]) [facility] ([facility]) [address] [place] [address] 94525 MCH (RBC) [Entitic mass] 30.6 pg Normal 26.0-34.0 [facility] Comment on above: Performed By: #### 1 9123-9 #### BEVERLEY Poe ([id number]) [facility] ([facility]) [address] [place] [address] 35210 MCHC (RBC) [Mass/Vol] 30.4 g/dL Low 32.0-36.0 [facility] Comment on above: Performed By: #### 1 9123-9 #### BEVERLEY Poe ([id number]) [facility] ([facility]) [address] [place] [address] 22168 MCV (RBC) [Entitic vol] 101 fL High 80-100 [facility] Comment on above: Performed By: #### 1 9123-9 #### BEVERLEY Poe ([id number]) [facility] ([facility]) [address] [place] [address] 90912 Nucleated RBC/100 WBC (Bld) [Ratio] 0.0 /100 WBCs Normal 0.0-0.0 [facility] Comment on above: Performed By: #### 1 9123-9 #### BEVERLEY Poe ([id number]) [facility] ([facility]) [address] [place] [address] 27929 Platelets (Bld) [#/Vol] 88 x10*3/uL Low 150-450 [facility] Comment on above: Performed By: #### 1 9123-9 #### BEVERLEY Poe ([id number]) [facility] ([facility]) [address] [place] [address] 14688 RBC (Bld) [#/Vol] 2.68 x10*6/uL Low 4.00-5.20 [facility] Comment on above: Performed By: #### 1 9123-9 #### BEVERLEY Poe ([id number]) [facility] ([facility]) [address] [place] [address] 32985 WBC (Bld) [#/Vol] 3.7 x10*3/uL Low 4.4-11.3 [facility] Comment on above: Performed By: #### 1 9123-9 #### BEVERLEY Poe ([id number]) [facility] ([facility]) [address] [place] [address] 57742 Glucose Test strip manual (B ld) [Mass/Vol]on 09-17-2023 Glucose [Mass/Vol] 142 mg/dL High 74 - 99 mg/dL [facility] Interpretation and review of laboratory results Abnormal [facility] Glucose [Mass/Vol] 142 mg/dL High 74-99 [facility] Comment on above: Performed By: #### 2 4323-8 #### BEVERLEY Poe ([id number]) [facility] ([facility]) [address] [place] [address] 63769 Glucose [Mass/Vol] 117 mg/dL High 74 - 99 mg/dL [facility] Interpretation and review of laboratory results Abnormal [facility] Glucose [Mass/Vol] 117 mg/dL High 74-99 [facility] Comment on above: Performed By: #### 2 4323-8 #### BEVERLEY Poe ([id number]) [facility] ([facility]) [address] [place] [address] 55565 Glucose [Mass/Vol] 138 mg/dL High 74 - 99 mg/dL [facility] Interpretation and review of laboratory results Abnormal [facility] Glucose [Mass/Vol] 138 mg/dL High 74-99 [facility] Comment on above: Performed By: #### 2 4323-8 #### BEVERLEY Poe ([id number]) [facility] ([facility]) [address] [place] [address] 69893 Glucose [Mass/Vol] 96 mg/dL 74 - 99 mg/dL [facility] Interpretation and review of laboratory results Normal [facility] Glucose [Mass/Vol] 96 mg/dL Normal 74-99 [facility] Comment on above: Performed By: #### 1 9123-9 #### BEVERLEY Poe ([id number]) [facility] ([facility]) [address] [place] [address] 31851 Magnesiumon 09-17-2023 Magnesium [Mass/Vol] 2.00 mg/dL 1.60 - 2.40 mg/dL [facility] Magnesium [Mass/Vol] 2.00 mg/dL Normal 1.60-2.40 [facility] Comment on above: Performed By: #### 1 9123-9 #### BEVERLEY Poe ([id number]) [facility] ([facility]) [address] [place] [address] 37498 Magnesium [Mass/Vol]on 09-17 Interpretation and review of laboratory results Normal [facility] No Panel Informationon 09-17 [facility] Renal function 2000 panelon 09-17-2023 Albumin BCP dye [Mass/Vol] 2.9 g/dL Low 3.4 - 5.0 g/dL [facility] Anion gap [Moles/Vol] 11 mmol/L 10 - 2 0 mmol/L [facility] Calcium [Mass/Vol] 8.7 mg/dL 8.6 - 10. 6 mg/dL [facility] Chloride [Moles/Vol] 100 mmol/L 98 - 10 7 mmol/L [facility] CO2 [Moles/Vol] 40 mmol/L Critically high 21 - 32 mmol/L [facility] Creatinine [Mass/Vol] 0.32 mg/dL Low 0.50 - 1.05 mg/dL [facility] GFR/1.73 sq M.predicted MDRD (S/P/Bld) [Vol rate/Area] - PINF [facility] Glucose [Mass/Vol] 95 mg/dL 74 - 99 mg/dL [facility] Interpretation and review of laboratory results Abnormal [facility] [place] Phosphate [Mass/Vol] 3.8 mg/dL 2.5 - 4 .9 mg/dL [facility] [place] Potassium [Moles/Vol] 3.8 mmol/L 3.5 - 5.3 mmol/L [facility] [place] Sodium [Moles/Vol] 147 mmol/L High 136 - 145 mmol/L [facility] [place] Urea nitrogen [Mass/Vol] 10 mg/dL 6 - 23 mg/dL [facility] [place] Albumin BCP dye [Mass/Vol] 2.9 g/dL Low 3.4-5.0 [facility] Comment on above: Performed By: #### 1 9123-9 #### BEVERLEY Poe ([id number]) [facility] ([facility]) [id number] [place] [address] 09783 Anion gap [Moles/Vol] 11 mmol/L Normal 10-20 [facility] Comment on above: Performed By: #### 1 9123-9 #### BEVERLEY Poe ([id number]) [facility] ([facility]) [address] [place] [address] Calcium [Mass/Vol] 8.7 mg/dL Normal 8.6-10.6 [facility] Comment on above: Performed By: #### 1 9123-9 #### BEVERLEY Poe ([id number]) [facility] ([facility]) [address] [place] [address] Chloride [Moles/Vol] 100 mmol/L Normal 98-107 [facility] Comment on above: Performed By: #### 1 9123-9 #### BEVERLEY Poe ([id number]) [facility] ([facility]) [id number] [place] [address] 45786 CO2 [Moles/Vol] 40 mmol/L Critically high 21-32 [facility] Comment on above: Performed By: #### 1 9123-9 #### BEVERLEY Poe ([id number]) [facility] ([facility]) [address] [place] [address] 84679 Creatinine [Mass/Vol] 0.32 mg/dL Low 0.50-1.05 [facility] Comment on above: Performed By: #### 1 9123-9 #### BEVERLEY Poe ([id number]) [facility] ([facility]) [address] [place] [address] 97225 GFR/1.73 sq M.predicted MDRD (S/P/Bld) [Vol rate/Area] mL/min/{1.73_m2} Normal >60 [facility] Comment on above: Result Comment: Calc ulations of estimated GFR are performed using the 2020 CKD-EPI Study Refit equation without the race variable for the IDMS-Traceable creatinine methods. https://jasn.asnjournals.org/content/early//ASN.76815 92839 Performed By: #### 1 9123-9 #### BEVERLEY Poe ([id number]) [facility] ([facility]) [id number] [place] [address] 81921 Glucose [Mass/Vol] 95 mg/dL Normal 74-99 [facility] Comment on above: Performed By: #### 1 9123-9 #### BEVERLEY Poe ([id number]) [facility] ([facility]) [address] [place] [address] 68504 Phosphate [Mass/Vol] 3.8 mg/dL Normal 2.5-4.9 [facility] Comment on above: Result Comment: The performance characteristics of phosphorus testing in heparinized plasma have been validated by the individual laboratory site where testing is performed. Testing on heparinized plasma is not approved by the FDA; however, such approval is not necessary. Performed By: #### 1 9123-9 #### BEVERLEY Poe ([id number]) [facility] ([facility]) [address] [place] [address] 59788 Potassium [Moles/Vol] 3.8 mmol/L Normal 3.5-5.3 [facility] Comment on above: Performed By: #### 1 9123-9 #### BEVERLEY Poe ([id number]) [facility] ([facility]) [address] [place] [address] 95423 Sodium [Moles/Vol] 147 mmol/L High 136-145 [facility] Comment on above: Performed By: #### 1 9123-9 #### BEVERLEY Poe ([id number]) [facility] ([facility]) [address] [place] [address] 46311 Urea nitrogen [Mass/Vol] 10 mg/dL Normal 6-23 [facility] Comment on above: Performed By: #### 1 9123-9 #### BEVERLEY Poe ([id number]) [facility] ([facility]) [address] [place] [address] 76990 Blood type and Indirect anti body screen panel (Bld)on 09-16-2023 ABO group Nom (Bld) O [facility] Blood group antibody screen Ql Negative [facility] [place] D Ag Ql (Bld) Positive [facility] CBC panel Auto (Bld)on 09-16 Erythrocyte distribution width (RBC) [Ratio] 13.9 % 11.5 - 14.5 % [facility] [place] Hematocrit (Bld) [Volume fraction] 29.3 % Low 36.0 - 46.0 % [facility] [place] Hemoglobin (Bld) [Mass/Vol] 8.5 g/dL Low 12.0 - 16.0 g/dL [facility] [place] Interpretation and review of laboratory results Abnormal [facility] [place] MCH (RBC) [Entitic mass] 29.9 pg 26.0 - 34.0 pg [facility] [place] MCHC (RBC) [Mass/Vol] 29.0 g/dL Low 32.0 - 36.0 g/dL [facility] [place] MCV (RBC) [Entitic vol] 103 fL High 80 - 100 fL [facility] [place] Nucleated RBC/100 WBC (Bld) [Ratio] 0.0 % [facility] [place] Platelets (Bld) [#/Vol] 93 10*3/uL Low [facility] [place] RBC (Bld) [#/Vol] 2.84 10*6/uL [facility] WBC (Bld) [#/Vol] 3.4 10*3/uL [facility] Erythrocyte distribution width (RBC) [Ratio] 13.9 % Normal 11.5-14.5 [facility] Comment on above: Performed By: #### 1 9123-9 #### BEVERLEY Poe ([id number]) [facility] ([facility]) [address] [place] [address] 81405 Hematocrit (Bld) [Volume fraction] 29.3 % Low 36.0-46.0 [facility] Comment on above: Performed By: #### 1 9123-9 #### BEVERLEY Poe ([id number]) [facility] ([facility]) [address] [place] [address] 61133 Hemoglobin (Bld) [Mass/Vol] 8.5 g/dL Low 12.0-16.0 [facility] Comment on above: Performed By: #### 1 9123-9 #### BEVERLEY Poe ([id number]) [facility] ([facility]) [address] [place] [address] 40811 MCH (RBC) [Entitic mass] 29.9 pg Normal 26.0-34.0 [facility] Comment on above: Performed By: #### 1 9123-9 #### BEVERLEY Poe ([id number]) [facility] ([facility]) [address] [place] [address] 67486 MCHC (RBC) [Mass/Vol] 29.0 g/dL Low 32.0-36.0 [facility] Comment on above: Performed By: #### 1 9123-9 #### BEVERLEY Poe ([id number]) [facility] ([facility]) [address] [place] [address] 38894 MCV (RBC) [Entitic vol] 103 fL High 80-100 [facility] Comment on above: Performed By: #### 1 9123-9 #### BEVERLEY Poe ([id number]) [facility] ([facility]) [address] [place] [address] 89452 Nucleated RBC/100 WBC (Bld) [Ratio] 0.0 /100 WBCs Normal 0.0-0.0 [facility] Comment on above: Performed By: #### 1 9123-9 #### BEVERLEY Poe ([id number]) [facility] ([facility]) [address] [place] [address] 63772 Platelets (Bld) [#/Vol] 93 x10*3/uL Low 150-450 [facility] Comment on above: Performed By: #### 1 9123-9 #### BEVERLEY Poe ([id number]) [facility] ([facility]) [address] [place] [address] 11516 RBC (Bld) [#/Vol] 2.84 x10*6/uL Low 4.00-5.20 [facility] Comment on above: Performed By: #### 1 9123-9 #### BEVERLEY Poe ([id number]) [facility] ([facility]) [address] [place] [address] 72426 WBC (Bld) [#/Vol] 3.4 x10*3/uL Low 4.4-11.3 [facility] Comment on above: Performed By: #### 1 9123-9 #### BEVERLEY Poe ([id number]) [facility] ([facility]) [address] [place] [address] 22744 Carcinoembryonic Agon 2022 Carcinoembryonic Ag [Mass/Vol] ng/mL Normal [facility] Comment on above: Order Comment: REF V ALUES NONSMOKERS 0-2.5 SMOKERS 0-5.0CEA testing is performed by chemiluminescent immunoassay using the Siemens SummitIG. Values obtained with different analytic methods cannot [...] By: #### 1 9123-9 #### BEVERLEY Poe ([id number]) [facility] ([facility]) [address] [place] [address] 27188 Carcinoembryonic Ag [Mass/Vo l]on 09-16-2023 [facility] Carcinoembryonic Antigenon 1 11-16-2022 Carcinoembryonic Ag [Mass/Vol] ug/L ug/L [facility] [place] Glucose Test strip manual (B ld) [Mass/Vol]on 09-16-2023 Glucose [Mass/Vol] 96 mg/dL 74 - 99 mg/dL [facility] [place] Interpretation and review of laboratory results Normal [facility] Glucose [Mass/Vol] 96 mg/dL Normal 74-99 [facility] Comment on above: Performed By: #### 1 9123-9 #### BEVERLEY Poe ([id number]) [facility] ([facility]) [address] [place] [address] 83422 Glucose [Mass/Vol] 94 mg/dL 74 - 99 mg/dL [facility] [place] Interpretation and review of laboratory results Normal [facility] Glucose [Mass/Vol] 94 mg/dL Normal 74-99 [facility] Comment on above: Performed By: #### 1 9123-9 #### BEVERLEY Poe ([id number]) [facility] ([facility]) [address] [place] [address] 60921 Glucose [Mass/Vol] 98 mg/dL 74 - 99 mg/dL [facility] [place] Interpretation and review of laboratory results Normal [facility] Glucose [Mass/Vol] 98 mg/dL Normal 74-99 [facility] Comment on above: Performed By: #### 2 341-6 #### BEVERLEY Poe ([id number]) [facility] ([facility]) [address] [place] [address] 08684 Glucose [Mass/Vol] 92 mg/dL 74 - 99 mg/dL [facility] [place] Interpretation and review of laboratory results Normal [facility] Glucose [Mass/Vol] 92 mg/dL Normal 74-99 [facility] Comment on above: Performed By: #### 2 341-6 #### BEVERLEY Poe ([id number]) [facility] ([facility]) [address] [place] [address] 96409 Glucose [Mass/Vol] 88 mg/dL 74 - 99 mg/dL [facility] [place] Interpretation and review of laboratory results Normal [facility] Glucose [Mass/Vol] 88 mg/dL Normal 74-99 [facility] Comment on above: Performed By: #### 2 341-6 #### BEVERLEY Poe ([id number]) [facility] ([facility]) [address] [place] [address] 79487 Magnesiumon 09-16-2023 Magnesium [Mass/Vol] 2.04 mg/dL 1.60 - 2.40 mg/dL [facility] [place] Magnesium [Mass/Vol] 2.04 mg/dL Normal 1.60-2.40 [facility] Comment on above: Performed By: #### 1 9123-9 #### BEVERLEY Poe ([id number]) [facility] ([facility]) [address] [place] [address] 39932 Magnesium [Mass/Vol]on 09-16 Interpretation and review of laboratory results Normal [facility] [place] No Panel Informationon 09-16 [facility] [place] Renal function 2000 panelon 09-16-2023 Albumin BCP dye [Mass/Vol] 3.0 g/dL Low 3.4 - 5.0 g/dL [facility] [place] Anion gap [Moles/Vol] 10 mmol/L 10 - 2 0 mmol/L [facility] [place] Calcium [Mass/Vol] 8.8 mg/dL 8.6 - 10. 6 mg/dL [facility] [place] Chloride [Moles/Vol] 99 mmol/L 98 - 10 7 mmol/L [facility] [place] CO2 [Moles/Vol] 40 mmol/L Critically high 21 - 32 mmol/L [facility] [place] Creatinine [Mass/Vol] 0.40 mg/dL Low 0.50 - 1.05 mg/dL [facility] [place] GFR/1.73 sq M.predicted MDRD (S/P/Bld) [Vol rate/Area] - PINF [facility] [place] Glucose [Mass/Vol] 88 mg/dL 74 - 99 mg/dL [facility] [place] Interpretation and review of laboratory results Abnormal [facility] [place] Phosphate [Mass/Vol] 3.1 mg/dL 2.5 - 4 .9 mg/dL [facility] [place] Potassium [Moles/Vol] 3.7 mmol/L 3.5 - 5.3 mmol/L [facility] [place] Sodium [Moles/Vol] 145 mmol/L 136 - 145 mmol/L [facility] [place] Urea nitrogen [Mass/Vol] 12 mg/dL 6 - 23 mg/dL [facility] [place] Albumin BCP dye [Mass/Vol] 3.0 g/dL Low 3.4-5.0 [facility] Comment on above: Performed By: #### 1 9123-9 #### BEVERLEY Poe ([id number]) [facility] ([facility]) [address] [place] [address] 58161 Anion gap [Moles/Vol] 10 mmol/L Normal 10-20 [facility] Comment on above: Performed By: #### 1 9123-9 #### BEVERLEY Poe ([id number]) [facility] ([facility]) [address] [place] [address] 39397 Calcium [Mass/Vol] 8.8 mg/dL Normal 8.6-10.6 [facility] Comment on above: Performed By: #### 1 9123-9 #### BEVERLEY oPe ([id number]) [facility] ([facility]) [address] [place] [address] Chloride [Moles/Vol] 99 mmol/L Normal 98-107 [facility] Comment on above: Performed By: #### 1 9123-9 #### BEVERLEY DODD L ([id number]) [facility] ([facility]) [address] [place] [address] CO2 [Moles/Vol] 40 mmol/L Critically high 21-32 [facility] Comment on above: Performed By: #### 1 9123-9 #### BEVERLEY Poe ([id number]) [facility] ([facility]) [address] [place] [address] Creatinine [Mass/Vol] 0.40 mg/dL Low 0.50-1.05 [facility] Comment on above: Performed By: #### 1 9123-9 #### BEVERLEY Poe ([id number]) [facility] ([facility]) [address] [place] [address] GFR/1.73 sq M.predicted MDRD (S/P/Bld) [Vol rate/Area] mL/min/{1.73_m2} Normal >60 [facility] Comment on above: Result Comment: Calc ulations of estimated GFR are performed using the 2020 CKD-EPI Study Refit equation without the race variable for the IDMS-Traceable creatinine methods. https://jasn.asnjournals.org/content//ASN.23142 33676 Performed By: #### 1 9123-9 #### BEVERLEY Poe ([id number]) [facility] ([facility]) [address] [place] [address] Glucose [Mass/Vol] 88 mg/dL Normal 74-99 [facility] Comment on above: Performed By: #### 1 9123-9 #### BEVERLEY Poe ([id number]) [facility] ([facility]) [address] [place] [address] Phosphate [Mass/Vol] 3.1 mg/dL Normal 2.5-4.9 [facility] Comment on above: Result Comment: The performance characteristics of phosphorus testing in heparinized plasma have been validated by the individual laboratory site where testing is performed. Testing on heparinized plasma is not approved by the FDA; however, such approval is not necessary. Performed By: #### 1 9123-9 #### BEVERLEY Poe ([id number]) [facility] ([facility]) [address] [place] [address] 53790 Potassium [Moles/Vol] 3.7 mmol/L Normal 3.5-5.3 [facility] Comment on above: Performed By: #### 1 9123-9 #### BEVERLEY Poe ([id number]) [facility] ([facility]) [address] [place] [address] 67953 Sodium [Moles/Vol] 145 mmol/L Normal 136-145 [facility] Comment on above: Performed By: #### 1 9123-9 #### BEVERLEY Poe ([id number]) [facility] ([facility]) [address] [place] [address] 63126 Urea nitrogen [Mass/Vol] 12 mg/dL Normal 6-23 [facility] Comment on above: Performed By: #### 1 9123-9 #### BEVERLEY Poe ([id number]) [facility] ([facility]) [address] [place] [address] 18244 Bacteria identifiedon 2022 Bacteria identified Cx Nom (Bld) Test: Blood Culture Specimen Source: Peripheral Venipuncture Specimen Type: Blood culture Specimen Date: 09/15/2023 9:24 PM Result Date: 09/19/2023 10:01 PM Result Status: Final result Abnormal: No Resulting Lab: [facility] [address] [place] [address] 94211 CULTURE No growth at 4 days - FINAL REPORT [facility] Comment on above: Performed By: #### 6 00-7 #### BEVERLEY Poe ([id number]) [facility] ([facility]) [address] [place] [address] 24565 Basophil percentageOrdered B y: Calvin Hester on 09-15-2023 Lactate [Moles/Vol] 0.6 mmol/L 0.4-2.0 [facility] Basophil percentage 10-25 SEEN /hpf 0-5 [facility] Bilirubin Test strip Ql (U)O rdered By: Calvin Hester on 09-15-2023 Bilirubin Ql (U) Negative Negative [facility] Blood type and Indirect anti body screen panel (Bld)on 09-15-2023 ABO group Nom (Bld) O Normal [facility] Comment on above: Performed By: #### 3 4532-2 #### BEVERLEY Poe ([id number]) [facility] ([facility]) [id number] [place], [place] [id number] Blood group antibody screen Ql Negative [facility] Comment on above: Performed By: #### 3 4532-2 #### BEVERLEY Poe ([id number]) [facility] ([facility]) [address] [place], [place] [id number] D Ag Ql (Bld) Positive [facility] Comment on above: Result Comment: 2nd ABO test required. Order and Collect VERAB Performed By: #### 3 4532-2 #### BEVERLEY Poe ([id number]) [facility] ([facility]) [address] [place] [address] 71090 CBC W Auto Differential pane l (Bld)on 09-15-2023 Basophils (Bld) [#/Vol] 0.01 10*3/uL [facility] [place] Basophils/100 WBC (Bld) 0.3 % 0.0 - 2.0 % [facility] Eosinophils (Bld) [#/Vol] 0.06 10*3/uL [facility] [place] Eosinophils/100 WBC (Bld) 1.7 % 0.0 - 6.0 % [facility] Erythrocyte distribution width (RBC) [Ratio] 13.9 % 11.5 - 14.5 % [facility] [place] Hematocrit (Bld) [Volume fraction] 27.8 % Low 36.0 - 46.0 % [facility] Hemoglobin (Bld) [Mass/Vol] 7.9 g/dL Low 12.0 - 16.0 g/dL [facility] [place] Immature granulocytes (Bld) [#/Vol] 0.02 10*3/uL [facility] [place] Immature granulocytes/100 WBC (Bld) 0.6 % 0.0 - 0.9 % [facility] [place] Interpretation and review of laboratory results Abnormal [facility] Lymphocytes (Bld) [#/Vol] 0.67 10*3/uL Low [facility] [place] Lymphocytes/100 WBC (Bld) 19.2 % 13.0 - 44.0 % [facility] [place] MCH (RBC) [Entitic mass] 29.8 pg 26.0 - 34.0 pg [facility] MCHC (RBC) [Mass/Vol] 28.4 g/dL Low 32.0 - 36.0 g/dL [facility] MCV (RBC) [Entitic vol] 105 fL High 80 - 100 fL [facility] Monocytes (Bld) [#/Vol] 0.23 10*3/uL [facility] [place] Monocytes/100 WBC (Bld) 6.6 % 2.0 - 10.0 % [facility] Neutrophils (Bld) [#/Vol] 2.50 10*3/uL [facility] Neutrophils/100 WBC (Bld) 71.6 % 40.0 - 80.0 % [facility] Nucleated RBC/100 WBC (Bld) [Ratio] 0.0 % [facility] Platelets (Bld) [#/Vol] 123 10*3/uL Low [facility] RBC (Bld) [#/Vol] 2.65 10*6/uL [facility] WBC (Bld) [#/Vol] 3.5 10*3/uL [facility] Basophils (Bld) [#/Vol] 0.01 x10*3/uL Normal 0.00-0.10 [facility] Comment on above: Performed By: #### 5 7021-8 #### BEVERLEY Poe ([id number]) [facility] ([facility]) [address] [place] [address] 93596 Basophils/100 WBC (Bld) 0.3 % Normal 0.0-2.0 [facility] Comment on above: Performed By: #### 5 7021-8 #### BEVERLEY Poe ([id number]) [facility] ([facility]) [address] [place] [address] 32785 Eosinophils (Bld) [#/Vol] 0.06 x10*3/uL Normal 0.00-0.40 [facility] Comment on above: Performed By: #### 5 7021-8 #### BEVERLEY Poe ([id number]) [facility] ([facility]) [address] [place] [address] 49951 Eosinophils/100 WBC (Bld) 1.7 % Normal 0.0-6.0 [facility] Comment on above: Performed By: #### 5 7021-8 #### BEVERLEY Poe ([id number]) [facility] ([facility]) [address] [place] [address] 86522 Erythrocyte distribution width (RBC) [Ratio] 13.9 % Normal 11.5-14.5 [facility] Comment on above: Performed By: #### 5 7021-8 #### BEVERLEY Poe ([id number]) [facility] ([facility]) [address] [place] [address] 90971 Hematocrit (Bld) [Volume fraction] 27.8 % Low 36.0-46.0 [facility] Comment on above: Performed By: #### 5 7021-8 #### BEVERLEY Poe ([id number]) [facility] ([facility]) [address] [place] [address] 35685 Hemoglobin (Bld) [Mass/Vol] 7.9 g/dL Low 12.0-16.0 [facility] Comment on above: Performed By: #### 5 7021-8 #### BEVERLEY Poe ([id number]) [facility] ([facility]) [address] [place] [address] 84553 Immature granulocytes (Bld) [#/Vol] 0.02 x10*3/uL Normal 0.00-0.50 [facility] Comment on above: Performed By: #### 5 7021-8 #### BEVERLEY Poe ([id number]) [facility] ([facility]) [address] [place] [address] 87969 Immature granulocytes/100 WBC (Bld) 0.6 % Normal 0.0-0.9 [facility] Comment on above: Result Comment: Sharda ture Granulocyte Count (IG) includes promyelocytes, myelocytes and metamyelocytes but does not include bands. Percent differential counts (%) should be interpreted in the context of the absolute cell counts (cells/UL). Performed By: #### 5 7021-8 #### BEVERLEY Poe ([id number]) [facility] ([facility]) [address] [place] [address] 27844 Lymphocytes (Bld) [#/Vol] 0.67 x10*3/uL Low 0.80-3.00 [facility] Comment on above: Performed By: #### 5 7021-8 #### BEVERLEY Poe ([id number]) [facility] [facility] ([facility]) [address] [place] [address] 11723 Lymphocytes/100 WBC (Bld) 19.2 % Normal 13.0-44.0 [facility] Comment on above: Performed By: #### 5 7021-8 #### BEVERLEY Poe ([id number]) [facility] ([facility]) [address] [place] [address] 57787 MCH (RBC) [Entitic mass] 29.8 pg Normal 26.0-34.0 [facility] Comment on above: Performed By: #### 5 7021-8 #### BEVERLEY Poe ([id number]) [facility] ([facility]) [address] [place] [address] 39956 MCHC (RBC) [Mass/Vol] 28.4 g/dL Low 32.0-36.0 [facility] Comment on above: Performed By: #### 5 7021-8 #### BEVERLEY Poe ([id number]) [facility] ([facility]) [address] [place] [address] MCV (RBC) [Entitic vol] 105 fL High 80-100 [facility] Comment on above: Performed By: #### 5 7021-8 #### BEVERLEY Poe ([id number]) [facility] ([facility]) [id number] [place] [address] 84053 Monocytes (Bld) [#/Vol] 0.23 x10*3/uL Normal 0.05-0.80 [facility] Comment on above: Performed By: #### 5 7021-8 #### BEVERLEY Poe ([id number]) [facility] ([facility]) [address] [place] [address] 79116 Monocytes/100 WBC (Bld) 6.6 % Normal 2.0-10.0 [facility] Comment on above: Performed By: #### 5 7021-8 #### BEVERLEY Poe ([id number]) [facility] ([facility]) [address] [place] [address] 72480 Neutrophils (Bld) [#/Vol] 2.50 x10*3/uL Normal 1.60-5.50 [facility] Comment on above: Result Comment: Perc ent differential counts (%) should be interpreted in the context of the absolute cell counts (cells/uL). Performed By: #### 5 7021-8 #### BEVERLEY Poe ([id number]) [facility] ([facility]) [id number] [place] [address] 33904 Neutrophils/100 WBC (Bld) 71.6 % Normal 40.0-80.0 [facility] Comment on above: Performed By: #### 5 7021-8 #### BEVERLEY Poe ([id number]) [facility] ([facility]) [address] [place] [address] Nucleated RBC/100 WBC (Bld) [Ratio] 0.0 /100 WBCs Normal 0.0-0.0 [facility] Comment on above: Performed By: #### 5 7021-8 #### BEVERLEY Poe ([id number]) [facility] ([facility]) [address] [place] [address] Platelets (Bld) [#/Vol] 123 x10*3/uL Low 150-450 [facility] Comment on above: Performed By: #### 5 7021-8 #### BEVERLEY Poe ([id number]) [facility] ([facility]) [address] [place] [address] RBC (Bld) [#/Vol] 2.65 x10*6/uL Low 4.00-5.20 [facility] Comment on above: Performed By: #### 5 7021-8 #### BEVERLEY Poe ([id number]) [facility] ([facility]) [address] [place] [address] WBC (Bld) [#/Vol] 3.5 x10*3/uL Low 4.4-11.3 [facility] Comment on above: Performed By: #### 5 7021-8 #### BEVERLEY Poe ([id number]) [facility] ([facility]) [address] [place] [address] Comprehensive metabolic 2000 panelon 09-15-2023 Albumin BCP dye [Mass/Vol] 3.0 g/dL Low 3.4 - 5.0 g/dL [facility] ALP [Catalytic activity/Vol] 47 U/L 33 - 136 U/L [facility] ALT With P-5'-P [Catalytic activity/Vol] 10 U/L 7 - 45 U/L [facility] Anion gap [Moles/Vol] 10 mmol/L 10 - 2 0 mmol/L [facility] AST With P-5'-P [Catalytic activity/Vol] 10 U/L 9 - 39 U/L [facility] Bilirubin [Mass/Vol] 0.6 mg/dL 0.0 - 1 .2 mg/dL [facility] Calcium [Mass/Vol] 8.8 mg/dL 8.6 - 10. 6 mg/dL [facility] Chloride [Moles/Vol] 100 mmol/L 98 - 10 7 mmol/L [facility] CO2 [Moles/Vol] 39 mmol/L High 21 - 32 mmol/L [facility] Creatinine [Mass/Vol] 0.45 mg/dL Low 0.50 - 1.05 mg/dL [facility] GFR/1.73 sq M.predicted MDRD (S/P/Bld) [Vol rate/Area] - PINF [facility] Glucose [Mass/Vol] 88 mg/dL 74 - 99 mg/dL [facility] Interpretation and review of laboratory results Abnormal [facility] Potassium [Moles/Vol] 4.2 mmol/L 3.5 - 5.3 mmol/L [facility] Protein [Mass/Vol] 6.1 g/dL Low 6.4 - 8.2 g/dL [facility] Sodium [Moles/Vol] 145 mmol/L 136 - 145 mmol/L [facility] Urea nitrogen [Mass/Vol] 13 mg/dL 6 - 23 mg/dL [facility] Albumin BCP dye [Mass/Vol] 3.0 g/dL Low 3.4-5.0 [facility] Comment on above: Performed By: #### 2 4323-8 #### BEVERLEY Poe ([id number]) [facility] ([facility]) [id number] [place] [address] 56085 ALP [Catalytic activity/Vol] 47 U/L Normal 33-136 [facility] Comment on above: Performed By: #### 2 4323-8 #### BEVERLEY Poe ([id number]) [facility] ([facility]) [address] [place] [address] 17469 ALT With P-5'-P [Catalytic activity/Vol] 10 U/L Normal 7-45 [facility] Comment on above: Result Comment: Ирина ents treated with Sulfasalazine may generate falsely decreased results for ALT. Performed By: #### 2 4323-8 #### BEVERLEY Poe ([id number]) [facility] ([facility]) [address] [place] [address] Anion gap [Moles/Vol] 10 mmol/L Normal 10-20 [facility] Comment on above: Performed By: #### 2 4323-8 #### BEVERLEY Poe ([id number]) [facility] ([facility]) [address] [place] [address] AST With P-5'-P [Catalytic activity/Vol] 10 U/L Normal 9-39 [facility] Comment on above: Performed By: #### 2 4323-8 #### BEVERLEY Poe ([id number]) [facility] ([facility]) [id number] [place] [address] 19014 Bilirubin [Mass/Vol] 0.6 mg/dL Normal 0.0-1.2 [facility] Comment on above: Performed By: #### 2 4323-8 #### BEVERLEY Poe ([id number]) [facility] ([facility]) [id number] [place] [address] 46447 Calcium [Mass/Vol] 8.8 mg/dL Normal 8.6-10.6 [facility] Comment on above: Performed By: #### 2 4323-8 #### BEVERLEY Poe ([id number]) [facility] ([facility]) [address] [place] [address] 38378 Chloride [Moles/Vol] 100 mmol/L Normal 98-107 [facility] Comment on above: Performed By: #### 2 4323-8 #### BEVERLEY DODD L ([id number]) [facility] ([facility]) [id number] [place] [address] 42198 CO2 [Moles/Vol] 39 mmol/L High 21-32 [facility] Comment on above: Performed By: #### 2 4323-8 #### BEVERLEY DODD L ([id number]) [facility] ([facility]) [id number] [place] [address] 08403 Creatinine [Mass/Vol] 0.45 mg/dL Low 0.50-1.05 [facility] Comment on above: Performed By: #### 2 4323-8 #### BEVERLEY DODD L ([id number]) [facility] ([facility]) [address] [place] [address] GFR/1.73 sq M.predicted MDRD (S/P/Bld) [Vol rate/Area] mL/min/{1.73_m2} Normal >60 [facility] Comment on above: Result Comment: Calc ulations of estimated GFR are performed using the 2020 CKD-EPI Study Refit equation without the race variable for the IDMS-Traceable creatinine methods. https://jasn.asnjournals.org/content/early//ASN.58314 38682 Performed By: #### 2 4323-8 #### BEVERLEY Poe ([id number]) [facility] ([facility]) [id number] [place] [address] 32361 Glucose [Mass/Vol] 88 mg/dL Normal 74-99 [facility] Comment on above: Performed By: #### 2 4323-8 #### BEVERLEY DODD L ([id number]) [facility] ([facility]) [id number] [place] [address] 46752 Potassium [Moles/Vol] 4.2 mmol/L Normal 3.5-5.3 [facility] Comment on above: Performed By: #### 2 4323-8 #### BEVERLEY DODD L ([id number]) [facility] ([facility]) [address] [place] [address] Protein [Mass/Vol] 6.1 g/dL Low 6.4-8.2 [facility] Comment on above: Performed By: #### 2 4323-8 #### BEVERLEY DODD L ([id number]) [facility] ([facility]) [id number] [place] [address] 76317 Sodium [Moles/Vol] 145 mmol/L Normal 136-145 [facility] Comment on above: Performed By: #### 2 4323-8 #### BEVERLEY DODD L ([id number]) [facility] ([facility]) [id number] [place] [address] 39701 Urea nitrogen [Mass/Vol] 13 mg/dL Normal 6-23 [facility] Comment on above: Performed By: #### 2 4323-8 #### BEVERLEY Poe ([id number]) [facility] ([facility]) [id number] [place] [address] 59201 Glucose Glucometer (BldC) [M ass/Vol]Ordered By: Calvin Hester on 09-15-2023 Glucose [Mass/Vol] 95 mg/dL 74-106 [facility] Comment on above: MANAGEMENT OF PATIEN T CARE PER NURSING PROTOCOL Ketones Test strip Ql (U)Ord ered By: Calvin Hester on 09-15-2023 Ketones Ql (U) Negative Negative [facility] Laboratory - Microbiology an d Antimicrobial susceptibilityOrdered By: Calvin Hester on 09-15-2023 Bacteria identified Cx Nom (Bld) No growth in 5 days. [facility] Magnesiumon 09-15-2023 Magnesium [Mass/Vol] 2.13 mg/dL 1.60 - 2.40 mg/dL [facility] Magnesium [Mass/Vol] 2.13 mg/dL Normal 1.60-2.40 [facility] Comment on above: Performed By: #### 1 9123-9 #### BEVERLEY Poe ([id number]) [facility] ([facility]) [address] [place] [address] 31227 Magnesium [Mass/Vol]on 09-15 Interpretation and review of laboratory results Normal [facility] Mucus LM Ql (Urine sed)Order ed By: Calvin Hester on 09-15-2023 Mucus Ql (Urine sed) 0 SEEN /hpf [facility] Nitrite Test strip Ql (U)Ord ered By: Calvin Hester on 09-15-2023 Nitrite Ql (U) Positive Negative [facility] No Panel Informationon 09-15 [facility] PT and aPTT panel Coag (PPP) on 09-15-2023 aPTT Coag (PPP) [Time] 24 s Low Un [facility] INR Coag (PPP) [Relative time] 1.0 {INR} 0.9 - 1.1 [facility] Interpretation and review of laboratory results Abnormal [facility] PT Coag (PPP) [Time] 11.6 s [facility] aPTT Coag (PPP) [Time] 24 s Low 27-38 Un [facility] Comment on above: Order Comment: The A PTT is no longer used for monitoring Unfractionated Heparin Therapy. For monitoring Heparin Therapy, use the Heparin Assay. Performed By: #### 3 4529-8 #### BEVERLEY Poe ([id number]) [facility] ([facility]) [address] [place] [address] 42210 INR Coag (PPP) [Relative time] 1.0 Normal 0.9-1.1 [facility] Comment on above: Order Comment: The A PTT is no longer used for monitoring Unfractionated Heparin Therapy. For monitoring Heparin Therapy, use the Heparin Assay. Performed By: #### 3 4529-8 #### BEVERLEY Poe ([id number]) [facility] ([facility]) [address] [place] [address] 71048 PT Coag (PPP) [Time] 11.6 s Normal 9.8-12.8 [facility] Comment on above: Order Comment: The A PTT is no longer used for monitoring Unfractionated Heparin Therapy. For monitoring Heparin Therapy, use the Heparin Assay. Performed By: #### 3 4529-8 #### BEVERLEY Poe ([id number]) [facility] ([facility]) [address] [place] [address] 56296 Protein Test strip Ql (U)Ord ered By: Calvin Hester on 09-15-2023 Protein Ql (U) 30 mg/dl Negative [facility] Squamous epithelial cells de tection in urine sediment by light microscopyOrdered By: Calvin Hester on 09-15-2023 Epithelial cells.squamous LM Ql (Urine sed) 0 SEEN /hpf 5-10 [facility] Urine blood detectionOrdered By: Calvin Hester on 09-15-2023 RBC Ql (U) 50 /ul Negative [facility] RBC Ql (U) 0-5 SEEN /hpf 0-5 [facility] Urine clarityOrdered By: Farooq Hester on 09-15-2023 Clarity (U) Clear Clear [facility] Urine color determinationOrd ered By: Calvin Hester on 09-15-2023 Color (U) Yellow Yellow [facility] Urine glucose detectionOrder ed By: Calvin Hester on 09-15-2023 Glucose Ql (U) Normal mg/dl Normal [facility] Urine leukocyte esterase det ection by dipstickOrdered By: Calvin Hester on 09-15-2023 Leukocyte esterase Test strip Ql (U) 100 /ul Negative [facility] Urine pHOrdered By: Calvin solorzano on 09-15-2023 pH (U) 6.0 [pH] 5.0 - 8.0 [facility] Urine sediment bacteria coun t by microscopy (number/high power field)Ordered By: Calvin Hester on 09-15-2023 Bacteria LM.HPF (Urine sed) [#/Area] 1 /[HPF] None Seen [facility] Urine specific gravity measu rementOrdered By: Calvin Hester on 09-15-2023 Specific gravity (U) [Rel density] 1.010 1.002-1.030 [facility] Urobilinogen Auto test strip Ql (U)Ordered By: Calvin Hester on 09-15-2023 Urobilinogen Ql (U) 1 mg/dl Normal [facility] Absolute lymphocyte countOrd ered By: Calvin Hester on 09-14-2023 Lymphocytes Auto (Unsp spec) [#/Vol] 0.70 10*3/uL 0.83-4.51 [facility] Basophil percentageOrdered B y: Calvin Hester on 09-14-2023 Basophils/100 WBC (Bld) 0.3 % 0-1 [facility] Bilirubin [Mass/Vol] 0.40 mg/dL 0.20-1.00 [facility] Comment on above: For patients on eltr ombopag therapy, use of Dimension [place] TBIL is not recommended. Chloride [Moles/Vol] 101 mmol/L 98-107 [facility] Eosinophils/100 WBC (Bld) 0.8 % 0-5 [facility] Glucose [Mass/Vol] 134 mg/dL 74-106 [facility] Comment on above: Fasting Glucose resu lt greater than or equal to 126 mg/dL suggests DIABETES MELLITUS per A.D.A. criteria. Neutrophils (Bld) [#/Vol] 2.5 10*3/uL 2.0-7.7 [facility] Neutrophils/100 WBC (Bld) 70.5 % 47-70 [facility] Potassium [Moles/Vol] 4.0 mmol/L 3.5-5.1 [facility] Protein [Mass/Vol] 6.9 g/dL 6.4-8.2 [facility] Sodium [Moles/Vol] 144 mmol/L 136-145 [facility] WBC (Bld) [#/Vol] 3.6 10*3/uL 4.4-11.0 [facility] Blood erythrocytes count (nu mber/volume)Ordered By: Calvin Hester on 09-14-2023 RBC (Bld) [#/Vol] 2.80 10*6/uL 4.2-5.4 [facility] Blood hemoglobin measurement (mass/volume)Ordered By: Calivn Hester on 09-14-2023 Hemoglobin (Bld) [Mass/Vol] 8.3 g/dL 12.0-15.0 [facility] Blood lymphocytes/100 leukoc ytesOrdered By: Calvin Hester on 09-14-2023 Lymphocytes/100 WBC (Bld) 19.5 % 19-41 [facility] Blood monocytes/100 leukocyt esOrdered By: Calvin Hester on 09-14-2023 Monocytes/100 WBC (Bld) 7.8 % 0-10 [facility] Blood platelet mean volumeOr dered By: Calvin Hester on 09-14-2023 Platelet mean volume (Bld) [Entitic vol] 8.8 fL 6.2-12.0 [facility] Determination of erythrocyte mean corpuscular volume (MCV)Ordered By: Calvin Hester on 09-14-2023 MCV (RBC) [Entitic vol] 102.9 fL 81-99 [facility] Direct bilirubinOrdered By: Calvin Hester on 09-14-2023 Bilirubin.direct [Mass/Vol] 0.09 mg/dL 0.00-0.30 [facility] Hematocrit Auto (Bld) [Volum e fraction]Ordered By: Calvin Hester on 09-14-2023 Hematocrit (Bld) [Volume fraction] 28.8 % 37-47 [facility] INR in Blood by Coagulation assayOrdered By: Calvin Hester on 09-14-2023 INR Coag (Bld) [Relative time] 1.0 {INR} [facility] Laboratory - Chemistry and C hemistry - challengeOrdered By: Calvin Hester on 09-14-2023 ALP [Catalytic activity/Vol] 66 U/L 45-117 [facility] ALT [Catalytic activity/Vol] 18 U/L 13-56 [facility] CO2 [Moles/Vol] 41.0 mmol/L 21.0-32.0 [facility] Globulin (S) [Mass/Vol] 4.4 g/dL 2.2-4.2 [facility] Lipase [Catalytic activity/Vol] 24 U/L 13-75 [facility] Comment on above: Please note:LIPASE r evised reference range effective 23. New Lipase methodology. Expected to produce lower values than the previous assay method. NEW Reference Range: 13 - 75 U/L Urea nitrogen/Creatinine [Mass ratio] 25.5 mg/mg 10-20 [facility] Laboratory - CoagulationOrde red By: Calvin Hester on 09-14-2023 aPTT Coag (Bld) [Time] 29.8 s 24.1-36.2 [facility] PT Coag (PPP) [Time] 13.0 s 11.7-14.9 [facility] Laboratory - Hematology and Cell countsOrdered By: Calvin Hester on 09-14-2023 Erythrocyte distribution width (RBC) [Entitic vol] 53.0 fL 35.1-43.9 [facility] Erythrocyte distribution width (RBC) [Ratio] 14.1 % 11.6-14.6 [facility] Immature granulocytes/100 WBC (Bld) 1.100 % 0.0-0.9 [facility] Comment on above: IG% - Immature Granu locytes (promyelocytes, myelocytes and metamyelocytes) > 1% indicates that a LEFT SHIFT is Present. MCH (RBC) [Entitic mass] 29.6 pg 27.0-32.0 [facility] Nucleated RBC/100 W[facility] (Bld) [Ratio] 0 % 0[facility] [Mass/Vol]Or dered By: Calvin Hester on 09-14-2023 MCHC (RBC) [Mass/Vol] 28.8 g/dL 32-36 [facility] No Panel InformationOrdered By: Calvin Hester on 09-14-2023 Estimated Creatinine Clearance Calc 54.98 ml/min [facility] Estimated GFR (MDRD) Amer 87 mL/min >60 [facility] Comment on above: GFR Calc Estimated GFR (MDRD) Non-Af Amer 72 mL/min >60 [facility] Comment on above: Non- GFR Calc Platelets bldOrdered By: Farooq Hester on 09-14-2023 Platelets (Bld) [#/Vol] 109 10*3/uL 150-450 [facility] Serum or plasma albumin celina urement (mass/volume)Ordered By: Calvin Hester on 09-14-2023 Albumin [Mass/Vol] 2.5 g/dL 3.2-5.0 [facility] Serum or plasma calcium celina urement (mass/volume)Ordered By: Calvin Hester on 09-14-2023 Calcium [Mass/Vol] 9.0 mg/dL 8.5-10.1 [facility] Serum or plasma creatinine m easurement (mass/volume)Ordered By: Calvin Hester on 09-14-2023 Creatinine [Mass/Vol] 0.82 mg/dL 0.55-1.02 [facility] Comment on above: The validity of the calculated GFR & GFRAA in patients over 70 years has not been determined. Clinical correlation is essential. Serum or plasma urea nitroge n measurement (mass/volume)Ordered By: Calvin Hester on 09-14-2023 Urea nitrogen [Mass/Vol] 21 mg/dL 7-18 [facility] Thin prep Papanicolaou smear with manual screeningOrdered By: Calvin Hester on 09-14-2023 Thin prep Papanicolaou smear with manual screening 10 U/L 15-37 [facility] Thin prep Papanicolaou smear with manual screening 2 5-15 [facility] Basophil percentageOrdered B y: Jonathan Dillard on 09-13-2023 Bilirubin [Mass/Vol] 0.30 mg/dL 0.20-1.00 [facility] Comment on above: For patients on eltr ombopag therapy, use of Dimension [place] TBIL is not recommended. Chloride [Moles/Vol] 103 mmol/L 98-107 [facility] Glucose [Mass/Vol] 111 mg/dL 74-106 [facility] Comment on above: Fasting Glucose resu lt from 100 to 125 mg/dL suggests IMPAIRED HOMEOSTASIS per A.D.A. criteria. Potassium [Moles/Vol] 3.8 mmol/L 3.5-5.1 [facility] Protein [Mass/Vol] 6.6 g/dL 6.4-8.2 [facility] Sodium [Moles/Vol] 145 mmol/L 136-145 [facility] WBC (Bld) [#/Vol] 2.8 10*3/uL 4.4-11.0 [facility] Blood erythrocytes count (nu mber/volume)Ordered By: Jonathan Dillard on 09-13-2023 RBC (Bld) [#/Vol] 2.62 10*6/uL 4.2-5.4 [facility] Blood hemoglobin measurement (mass/volume)Ordered By: Jonathan Dillard on 09-13-2023 Hemoglobin (Bld) [Mass/Vol] 8.0 g/dL 12.0-15.0 [facility] Blood platelet mean volumeOr dered By: Jonathan Dillard on 09-13-2023 Platelet mean volume (Bld) [Entitic vol] 8.6 fL 6.2-12.0 [facility] Determination of erythrocyte mean corpuscular volume (MCV)Ordered By: Jonathan Dillard on 09-13-2023 MCV (RBC) [Entitic vol] 103.4 fL 81-99 [facility] Hematocrit Auto (Bld) [Volum e fraction]Ordered By: Jonathan Dillard on 09-13-2023 Hematocrit (Bld) [Volume fraction] 27.1 % 37-47 [facility] Laboratory - Chemistry and C hemistry - challengeOrdered By: Jonathan Dillard on 09-13-2023 ALP [Catalytic activity/Vol] 58 U/L 45-117 [facility] ALT [Catalytic activity/Vol] 18 U/L 13-56 [facility] CO2 [Moles/Vol] 41.0 mmol/L 21.0-32.0 [facility] Globulin (S) [Mass/Vol] 4.2 g/dL 2.2-4.2 [facility] Urea nitrogen/Creatinine [Mass ratio] 34.5 mg/mg 10-20 [facility] Laboratory - Hematology and Cell countsOrdered By: Jonathan Dillard on 09-13-2023 Erythrocyte distribution width (RBC) [Entitic vol] 54.3 fL 35.1-43.9 [facility] Erythrocyte distribution width (RBC) [Ratio] 14.4 % 11.6-14.6 [facility] MCH (RBC) [Entitic mass] 30.5 pg 27.0-32.0 [facility] MCHC Auto (RBC) [Mass/Vol]Or dered By: Jonathan Dillard on 09-13-2023 MCHC (RBC) [Mass/Vol] 29.5 g/dL 32-36 [facility] Comment on above: Delta: 27.9 on 09/08 No Panel InformationOrdered By: Jonathan Dillard on 09-13-2023 Estimated GFR (MDRD) Amer 148 mL/min >60 [facility] Comment on above: GFR Calc Estimated GFR (MDRD) Non-Af Amer 122 mL/min >60 [facility] Comment on above: Non- GFR Calc Platelets bldOrdered By: Mervat Dillard on 09-13-2023 Platelets (Bld) [#/Vol] 103 10*3/uL 150-450 [facility] Serum or plasma albumin celina urement (mass/volume)Ordered By: Jonathan Dillard on 09-13-2023 Albumin [Mass/Vol] 2.4 g/dL 3.2-5.0 [facility] Serum or plasma albumin/glob ulin mass ratioOrdered By: Jonathan Dillard on 09-13-2023 Albumin/Globulin [Mass ratio] 0.6 {ratio} 0.9-2.4 [facility] Serum or plasma calcium celina urement (mass/volume)Ordered By: Jonathan Dillard on 09-13-2023 Calcium [Mass/Vol] 8.7 mg/dL 8.5-10.1 [facility] Serum or plasma creatinine m easurement (mass/volume)Ordered By: Jonathan Dillard on 09-13-2023 Creatinine [Mass/Vol] 0.52 mg/dL 0.55-1.02 [facility] Comment on above: The validity of the calculated GFR & GFRAA in patients over 70 years has not been determined. Clinical correlation is essential. Serum or plasma urea nitroge n measurement (mass/volume)Ordered By: Jonathan Dillard on 09-13-2023 Urea nitrogen [Mass/Vol] 18 mg/dL 7-18 [facility] Thin prep Papanicolaou smear with manual screeningOrdered By: Jonathan Dillard on 09-13-2023 Thin prep Papanicolaou smear with manual screening 11 U/L 15-37 [facility] Thin prep Papanicolaou smear with manual screening 1 5-15 [facility] Culture, urineOrdered By: Chloe Jeffries on 09-09-2023 Bacteria identified Cx Nom (U) Mixed Gram Pos & Gram Neg Org [facility] Cytology report of Body flui d Cyto stainOrdered By: Alecia Navarrete on 09-09-2023 Cytology report Cyto stain Doc (Body fld) SEE PATHOLOGY REPORT [facility] Comment on above: Specimen submitted t o Anatomical Pathology Department for testing. Absolute lymphocyte countOrd ered By: Delfin Jeffries on 09-08-2023 Lymphocytes Auto (Unsp spec) [#/Vol] 0.60 10*3/uL 0.83-4.51 [facility] Basophil percentageOrdered B y: Delfin Jeffries on 09-08-2023 Basophil percentage >100 SEEN /hpf 0-5 [facility] Comment on above: Microscopic field is filled. Other elements may be obscured. Basophil percentage 3.4 mg/dL 2.5-4.9 [facility] Basophils/100 WBC (Bld) 0.2 % 0-1 [facility] Bilirubin [Mass/Vol] 0.40 mg/dL 0.20-1.00 [facility] Comment on above: For patients on eltr ombopag therapy, use of Dimension [place] TBIL is not recommended. Chloride [Moles/Vol] 104 mmol/L 98-107 [facility] Eosinophils/100 WBC (Bld) 0.7 % 0-5 [facility] Glucose [Mass/Vol] 163 mg/dL 74-106 [facility] Comment on above: Fasting Glucose resu lt greater than or equal to 126 mg/dL suggests DIABETES MELLITUS per A.D.A. criteria. Neutrophils (Bld) [#/Vol] 3.5 10*3/uL 2.0-7.7 [facility] Neutrophils/100 WBC (Bld) 78.8 % 47-70 [facility] Potassium [Moles/Vol] 3.8 mmol/L 3.5-5.1 [facility] Protein [Mass/Vol] 7.1 g/dL 6.4-8.2 [facility] Sodium [Moles/Vol] 143 mmol/L 136-145 [facility] WBC (Bld) [#/Vol] 4.5 10*3/uL 4.4-11.0 [facility] Bilirubin Test strip Ql (U)O rdered By: Delfin Jeffries on 09-08-2023 Bilirubin Ql (U) Negative Negative [facility] Blood erythrocytes count (nu mber/volume)Ordered By: Delfin Jeffries on 09-08-2023 RBC (Bld) [#/Vol] 3.10 10*6/uL 4.2-5.4 [facility] Blood hemoglobin measurement (mass/volume)Ordered By: Delfin Jeffries on 09-08-2023 Hemoglobin (Bld) [Mass/Vol] 9.0 g/dL 12.0-15.0 [facility] Blood lymphocytes/100 leukoc ytesOrdered By: Delfin Jeffries on 09-08-2023 Lymphocytes/100 WBC (Bld) 13.4 % 19-41 [facility] Blood manual differential co mment interpretation (narrative result)Ordered By: Delfin Jeffries on 09-08-2023 Manual differential comment Ajit (Bld) [Interp] SCANNED [facility] Blood monocytes/100 leukocyt esOrdered By: Delfin Jeffries on 09-08-2023 Monocytes/100 WBC (Bld) 6.5 % 0-10 [facility] Blood platelet mean volumeOr dered By: Delfin Jeffries on 09-08-2023 Platelet mean volume (Bld) [Entitic vol] 8.1 fL 6.2-12.0 [facility] Culture, urineOrdered By: Chloe Jeffries on 09-08-2023 Bacteria identified Cx Nom (U) Mixed Gram Pos & Gram Neg Org [facility] Determination of erythrocyte mean corpuscular volume (MCV)Ordered By: Delfin Jeffries on 09-08-2023 MCV (RBC) [Entitic vol] 104.2 fL 81-99 [facility] Erythrocyte sedimentation ra teOrdered By: Delfin Jeffries on 09-08-2023 ESR (Bld) [Velocity] 43 mm/h 0-30 [facility] Hematocrit Auto (Bld) [Volum e fraction]Ordered By: Delfin Jeffries on 09-08-2023 Hematocrit (Bld) [Volume fraction] 32.3 % 37-47 [facility] Hemoglobin in reticulocytes (mass per reticulocyte)Ordered By: Delfin Jeffries on 09-08-2023 Hemoglobin (Reticulocytes) [Entitic mass] 26.4 pg 30-35 [facility] Iron measurement (mass/mass) Ordered By: Delfin Jeffries on 09-08-2023 Iron (Unsp spec) [Mass/Mass] 32 ug/dL 50-170 [facility] Ketones Test strip Ql (U)Ord ered By: Delfin Jeffries on 09-08-2023 Ketones Ql (U) 5 mg/dl Negative [facility] Laboratory - Chemistry and C hemistry - challengeOrdered By: Delfin Jeffries on 09-08-2023 ALP [Catalytic activity/Vol] 69 U/L 45-117 [facility] ALT [Catalytic activity/Vol] 17 U/L 13-56 [facility] CO2 [Moles/Vol] 38.0 mmol/L 21.0-32.0 [facility] Cobalamin (Vitamin B12) [Mass/Vol] 1331 pg/mL 211-911 [facility] Globulin (S) [Mass/Vol] 4.5 g/dL 2.2-4.2 [facility] Magnesium [Mass/Vol] 2.1 mg/dL 1.6-2.6 [facility] Urea nitrogen/Creatinine [Mass ratio] 31.6 mg/mg 10-20 [facility] Laboratory - Hematology and Cell countsOrdered By: Delfin Jeffries on 09-08-2023 Erythrocyte distribution width (RBC) [Entitic vol] 55.1 fL 35.1-43.9 [facility] Erythrocyte distribution width (RBC) [Ratio] 14.6 % 11.6-14.6 [facility] Immature granulocytes/100 WBC (Bld) 0.400 % 0.0-0.9 [facility] Comment on above: IG% - Immature Granu locytes (promyelocytes, myelocytes and metamyelocytes) > 1% indicates that a LEFT SHIFT is Present. MCH (RBC) [Entitic mass] 29.0 pg 27.0-32.0 [facility] Nucleated RBC/100 WBC (Bld) [Ratio] 0 % 0-5 [facility] MCHC Auto (RBC) [Mass/Vol]Or dered By: Delfin Jeffries on 09-08-2023 MCHC (RBC) [Mass/Vol] 27.9 g/dL 32-36 [facility] Mucus LM Ql (Urine sed)Order ed By: Delfin Jeffries on 09-08-2023 Mucus Ql (Urine sed) 0 SEEN /hpf [facility] Nitrite Test strip Ql (U)Ord ered By: Delfin Jeffries on 09-08-2023 Nitrite Ql (U) Negative Negative [facility] No Panel InformationOrdered By: Delfin Jeffries on 09-08-2023 Estimated Creatinine Clearance Calc 43.27 ml/min [facility] Estimated GFR (MDRD) Amer 118 mL/min >60 [facility] Comment on above: GFR Calc Estimated GFR (MDRD) Non-Af Amer 98 mL/min >60 [facility] Comment on above: Non- GFR Calc Immature Reticulocyte Fraction 17.60 % 3.00-15.90 [facility] Reticulocyte Count 2.46 % 0.5-1.5 [facility] Total Iron Binding Capacity 216 ug/dL 250-450 [facility] Platelets bldOrdered By: Luciano Jeffries on 09-08-2023 Platelets (Bld) [#/Vol] 113 10*3/uL 150-450 [facility] Protein Test strip Ql (U)Ord ered By: Delfin Jeffries on 09-08-2023 Protein Ql (U) 500 mg/dl Negative [facility] Serum or plasma C reactive p rotein measurement (mass/volume)Ordered By: Delfin Benson on 09-08-2023 CRP [Mass/Vol] 81.40 mg/L 0.0-3.0 [facility] Comment on above: C-Reactive Protein ( CRP) provides useful information for thediagnosis, therapy and monitoring of inflammatory processesand associated diseases. For the evaluation of Relative Riskfor Cardiovascular Disease, a High Sensitivity CRP (HSCRP)should be ordered. Serum or plasma albumin celina urement (mass/volume)Ordered By: Delfin Jeffries on 09-08-2023 Albumin [Mass/Vol] 2.6 g/dL 3.2-5.0 [facility] Serum or plasma albumin/glob ulin mass ratioOrdered By: Delfin Jeffries on 09-08-2023 Albumin/Globulin [Mass ratio] 0.6 {ratio} 0.9-2.4 [facility] Serum or plasma calcium celina urement (mass/volume)Ordered By: Delfin Benson on 09-08-2023 Calcium [Mass/Vol] 8.7 mg/dL 8.5-10.1 [facility] Serum or plasma creatinine m easurement (mass/volume)Ordered By: Delfin Benson on 09-08-2023 Creatinine [Mass/Vol] 0.63 mg/dL 0.55-1.02 [facility] Comment on above: The validity of the calculated GFR & GFRAA in patients over 70 years has not been determined. Clinical correlation is essential. Serum or plasma ferritin carter surement (mass/volume)Ordered By: Delfin Jeffries on 09-08-2023 Ferritin [Mass/Vol] 243 ng/mL 8-252 [facility] Serum or plasma folate measu rement (mass/volume)Ordered By: Delfin Jeffries on 09-08-2023 Folate [Mass/Vol] 84.50 ng/mL 3.1-55.4 [facility] Serum or plasma iron saturat ion measurement (mass fraction)Ordered By: Delfin Jeffries on 09-08-2023 Iron saturation [Mass fraction] 14.8 % 15.0-55.0 [facility] Serum or plasma urea nitroge n measurement (mass/volume)Ordered By: Delfin Jeffries on 09-08-2023 Urea nitrogen [Mass/Vol] 20 mg/dL 7-18 [facility] Squamous epithelial cells de tection in urine sediment by light microscopyOrdered By: Delfin Jeffries on 09-08-2023 Epithelial cells.squamous LM Ql (Urine sed) 0 SEEN /hpf 5-10 [facility] Thin prep Papanicolaou smear with manual screeningOrdered By: Delfin Jeffries on 09-08-2023 Thin prep Papanicolaou smear with manual screening 15 U/L 15-37 [facility] Thin prep Papanicolaou smear with manual screening 1 5-15 [facility] Urine blood detectionOrdered By: Delfin Jeffries on 09-08-2023 RBC Ql (U) 250 /ul Negative [facility] RBC Ql (U) > 100 SEEN /hpf 0-5 [facility] Comment on above: Microscopic field is filled. Other elements may be obscured. Urine clarityOrdered By: Luciano Jeffries on 09-08-2023 Clarity (U) Cloudy Clear [facility] Urine color determinationOrd ered By: Delfin Jeffries on 09-08-2023 Color (U) Brown Yellow [facility] Urine glucose detectionOrder ed By: Delfin Jeffries on 09-08-2023 Glucose Ql (U) Normal mg/dl Normal [facility] Urine leukocyte esterase det ection by dipstickOrdered By: Delfin Jeffries on 09-08-2023 Leukocyte esterase Test strip Ql (U) 100 /ul Negative [facility] Urine pHOrdered By: Delfin elizabeth on 09-08-2023 pH (U) 5.0 [pH] 5.0 - 8.0 [facility] Urine sediment bacteria coun t by microscopy (number/high power field)Ordered By: Delfin Jeffries on 09-08-2023 Bacteria LM.HPF (Urine sed) [#/Area] 0 /[HPF] None Seen [facility] Urine specific gravity measu rementOrdered By: Delfin Jeffries on 09-08-2023 Specific gravity (U) [Rel density] 1.020 1.002-1.030 [facility] Urobilinogen Auto test strip Ql (U)Ordered By: Delfin Jeffries on 09-08-2023 Urobilinogen Ql (U) Normal mg/dl Normal [facility] Basophil percentageOrdered B y: Jonathan Dillard on 08-31-2023 Basophil percentage >100 SEEN /hpf 0-5 [facility] Chloride [Moles/Vol] 104 mmol/L 98-107 [facility] Glucose [Mass/Vol] 110 mg/dL 74-106 [facility] Comment on above: Fasting Glucose resu lt from 100 to 125 mg/dL suggests IMPAIRED HOMEOSTASIS per A.D.A. criteria. Potassium [Moles/Vol] 3.9 mmol/L 3.5-5.1 [facility] Sodium [Moles/Vol] 146 mmol/L 136-145 [facility] WBC (Bld) [#/Vol] 3.7 10*3/uL 4.4-11.0 [facility] Bilirubin Test strip Ql (U)O rdered By: Jonathan Dillard on 08-31-2023 Bilirubin Ql (U) Negative Negative [facility] Blood erythrocytes count (nu mber/volume)Ordered By: Jonathan Dillard on 08-31-2023 RBC (Bld) [#/Vol] 2.85 10*6/uL 4.2-5.4 [facility] Blood hemoglobin measurement (mass/volume)Ordered By: Jonathan Dillard on 08-31-2023 Hemoglobin (Bld) [Mass/Vol] 8.5 g/dL 12.0-15.0 [facility] Blood manual differential co mment interpretation (narrative result)Ordered By: Jonathan Dillard on 08-31-2023 Manual differential comment Ajit (Bld) [Interp] COMMENT [facility] Comment on above: PLT POPULATION - MOD ERATELY DECREASED. Blood platelet mean volumeOr dered By: Jonathan Dillard on 08-31-2023 Platelet mean volume (Bld) [Entitic vol] 9.6 fL 6.2-12.0 [facility] Culture, urineOrdered By: Higuera on 08-31-2023 Bacteria identified Cx Nom (U) Mixed Gram Pos & Gram Neg Org [facility] Determination of erythrocyte mean corpuscular volume (MCV)Ordered By: Jonathan Dillard on 08-31-2023 MCV (RBC) [Entitic vol] 102.8 fL 81-99 [facility] Hematocrit Auto (Bld) [Volum e fraction]Ordered By: Jonathan Dillard on 08-31-2023 Hematocrit (Bld) [Volume fraction] 29.3 % 37-47 [facility] Ketones Test strip Ql (U)Ord ered By: Jonathan Dillard on 08-31-2023 Ketones Ql (U) Negative Negative [facility] Laboratory - Chemistry and C hemistry - challengeOrdered By: Jonathan Dillard on 08-31-2023 CO2 [Moles/Vol] 39.0 mmol/L 21.0-32.0 [facility] Urea nitrogen/Creatinine [Mass ratio] 37.5 mg/mg 10-20 [facility] Laboratory - Hematology and Cell countsOrdered By: Jonathan Dillard on 08-31-2023 Erythrocyte distribution width (RBC) [Entitic vol] 54.3 fL 35.1-43.9 [facility] Erythrocyte distribution width (RBC) [Ratio] 14.4 % 11.6-14.6 [facility] MCH (RBC) [Entitic mass] 29.8 pg 27.0-32.0 [facility] MCHC Auto (RBC) [Mass/Vol]Or dered By: Jonathan Dillard on 08-31-2023 MCHC (RBC) [Mass/Vol] 29.0 g/dL 32-36 [facility] Mucus LM Ql (Urine sed)Order ed By: Jonathan Dillard on 08-31-2023 Mucus Ql (Urine sed) 0 SEEN /hpf [facility] Nitrite Test strip Ql (U)Ord ered By: Jonathan Dillard on 08-31-2023 Nitrite Ql (U) Negative Negative [facility] No Panel InformationOrdered By: Jonathan Dillard on 08-31-2023 Estimated GFR (MDRD) Amer 153 mL/min >60 [facility] Comment on above: GFR Calc Estimated GFR (MDRD) Non-Af Amer 127 mL/min >60 [facility] Comment on above: Non- GFR Calc Platelets bldOrdered By: Mervat Dillard on 08-31-2023 Platelets (Bld) [#/Vol] 96 10*3/uL 150-450 [facility] Protein Test strip Ql (U)Ord ered By: Jonathan Dillard on 08-31-2023 Protein Ql (U) 100 mg/dl Negative [facility] Serum or plasma calcium celina urement (mass/volume)Ordered By: Jonathan Dillard on 08-31-2023 Calcium [Mass/Vol] 9.5 mg/dL 8.5-10.1 [facility] Serum or plasma creatinine m easurement (mass/volume)Ordered By: Jonathan Dillard on 08-31-2023 Creatinine [Mass/Vol] 0.51 mg/dL 0.55-1.02 [facility] Comment on above: The validity of the calculated GFR & GFRAA in patients over 70 years has not been determined. Clinical correlation is essential. Serum or plasma urea nitroge n measurement (mass/volume)Ordered By: Jonathan Dillard on 08-31-2023 Urea nitrogen [Mass/Vol] 19 mg/dL - [facility] Squamous epithelial cells de tection in urine sediment by light microscopyOrdered By: Jonathan Dillard on 08-31-2023 Epithelial cells.squamous LM Ql (Urine sed) 0 SEEN /hpf 5-10 [facility] Thin prep Papanicolaou smear with manual screeningOrdered By: Jonathan Dillard on 08-31-2023 Thin prep Papanicolaou smear with manual screening 3 5-15 [facility] Urine blood detectionOrdered By: Jonathan Dillard on 08-31-2023 RBC Ql (U) 250 /ul Negative [facility] RBC Ql (U) > 100 SEEN /hpf 0-5 [facility] Urine clarityOrdered By: Mervat Dillard on 08-31-2023 Clarity (U) Cloudy Clear [facility] Urine color determinationOrd ered By: Jonathan Dillard on 08-31-2023 Color (U) Yellow Yellow [facility] Urine glucose detectionOrder ed By: Jonathan Dillard on 08-31-2023 Glucose Ql (U) Normal mg/dl Normal [facility] Urine leukocyte esterase det ection by dipstickOrdered By: Jonathan Dillard on 08-31-2023 Leukocyte esterase Test strip Ql (U) 500 /ul Negative [facility] Urine pHOrdered By: Jonathan ramirez on 08-31-2023 pH (U) 6.0 [pH] 5.0 - 8.0 [facility] Urine sediment bacteria coun t by microscopy (number/high power field)Ordered By: Jonathan Dillard on 08-31-2023 Bacteria LM.HPF (Urine sed) [#/Area] 2 /[HPF] None Seen [facility] Urine specific gravity measu rementOrdered By: Jonathan Dillard on 08-31-2023 Specific gravity (U) [Rel density] 1.015 1.002-1.030 [facility] Urobilinogen Auto test strip Ql (U)Ordered By: Jonathan Dillard on 08-31-2023 Urobilinogen Ql (U) Normal mg/dl Normal [facility] Culture, urineOrdered By: Higuera on 08-17-2023 Bacteria identified Cx Nom (U) Mixed Gram Pos & Gram Neg Org [facility] XR BARIUM ENEMA COMPLETEon 1 XR [...] 08/17/2023 3:50:07 PM Ordering Provider: MARK JEREZ [facility] ([place]) Basophil percentageOrdered B y: Jonathan Dillard on 08-16-2023 Basophil percentage 0-5 SEEN /hpf 0-5 [facility] Bilirubin Test strip Ql (U)O rdered By: Jonathan Dillard on 08-16-2023 Bilirubin Ql (U) Negative Negative [facility] Culture, urineOrdered By: Higuera on 08-16-2023 Bacteria identified Cx Nom (U) Mixed Gram Pos & Gram Neg Org [facility] Hyaline casts LM.LPF (Urine sed) [#/Area]Ordered By: Jonathan Dillard on 08-16-2023 Hyaline casts (Urine sed) [#/Area] 5 /[LPF] 0-5 [facility] Ketones Test strip Ql (U)Ord ered By: Jonathan Dillard on 08-16-2023 Ketones Ql (U) 5 mg/dl Negative [facility] Mucus LM Ql (Urine sed)Order ed By: Jonathan Dillard on 08-16-2023 Mucus Ql (Urine sed) 0 SEEN /hpf [facility] Nitrite Test strip Ql (U)Ord ered By: Jonathan Dillard on 08-16-2023 Nitrite Ql (U) Negative Negative [facility] Protein Test strip Ql (U)Ord ered By: Jonathan Dillard on 08-16-2023 Protein Ql (U) 100 mg/dl Negative [facility] Squamous epithelial cells de tection in urine sediment by light microscopyOrdered By: Jonathan Dillard on 08-16-2023 Epithelial cells.squamous LM Ql (Urine sed) 5-10 SEEN /hpf 5-10 [facility] Urine blood detectionOrdered By: Jonathan Dillard on 08-16-2023 RBC Ql (U) 150 /ul Negative [facility] RBC Ql (U) 5-10 SEEN /hpf 0-5 [facility] Urine clarityOrdered By: Mervat Dillard on 08-16-2023 Clarity (U) Sl. Cloudy Clear [facility] Urine color determinationOrd ered By: Jonathan Dillard on 08-16-2023 Color (U) Yellow Yellow [facility] Urine glucose detectionOrder ed By: Jonathan Dillard on 08-16-2023 Glucose Ql (U) Normal mg/dl Normal [facility] Urine leukocyte esterase det ection by dipstickOrdered By: Jonathan Dillard on 08-16-2023 Leukocyte esterase Test strip Ql (U) 25 /ul Negative [facility] Urine pHOrdered By: Jonathan ramirez on 08-16-2023 pH (U) 5.0 [pH] 5.0 - 8.0 [facility] Urine sediment bacteria coun t by microscopy (number/high power field)Ordered By: Jonathan Dillard on 08-16-2023 Bacteria LM.HPF (Urine sed) [#/Area] 1 /[HPF] None Seen [facility] Urine specific gravity measu rementOrdered By: Jonathan Dillard on 08-16-2023 Specific gravity (U) [Rel density] 1.025 1.002-1.030 [facility] Urobilinogen Auto test strip Ql (U)Ordered By: Jonathan Dillard on 08-16-2023 Urobilinogen Ql (U) Normal mg/dl Normal [facility] LABORATORYOrdered By: Amy Gomez on 08-15-2023 Glucose [Mass/Vol] 147 mg/dL Invalid Interpretation Code 82 - 115 mg/dL [facility] Work Phone: XR [id number] APon 08-15-2023 [...] 08/15/2023 12:08:09 PM Ordering Provider: MARK JEREZ [facility] ([place]) Absolute lymphocyte countOrd ered By: Calvin Hester on 08-10-2023 Lymphocytes Auto (Unsp spec) [#/Vol] 0.52 10*3/uL 0.83-4.51 [facility] Basophil percentageOrdered B y: Calvin Hester on 08-10-2023 Basophils/100 WBC (Bld) 0.1 % 0-1 [facility] Chloride [Moles/Vol] 103 mmol/L 98-107 [facility] Eosinophils/100 WBC (Bld) 0.4 % 0-5 [facility] Glucose [Mass/Vol] 149 mg/dL 74-106 [facility] Comment on above: Fasting Glucose resu lt greater than or equal to 126 mg/dL suggests DIABETES MELLITUS per A.D.A. criteria. Neutrophils (Bld) [#/Vol] 5.8 10*3/uL 2.0-7.7 [facility] Neutrophils/100 WBC (Bld) 85.8 % 47-70 [facility] Potassium [Moles/Vol] 4.1 mmol/L 3.5-5.1 [facility] Sodium [Moles/Vol] 144 mmol/L 136-145 [facility] WBC (Bld) [#/Vol] 6.8 10*3/uL 4.4-11.0 [facility] Blood erythrocytes count (nu mber/volume)Ordered By: Calvin Hester on 08-10-2023 RBC (Bld) [#/Vol] 3.38 10*6/uL 4.2-5.4 [facility] Blood hemoglobin measurement (mass/volume)Ordered By: Calvin Hester on 08-10-2023 Hemoglobin (Bld) [Mass/Vol] 9.9 g/dL 12.0-15.0 [facility] Blood lymphocytes/100 leukoc ytesOrdered By: Calvin Hester on 08-10-2023 Lymphocytes/100 WBC (Bld) 7.6 % 19-41 [facility] Blood manual differential co mment interpretation (narrative result)Ordered By: Calvin Hester on 08-10-2023 Manual differential comment Ajit (Bld) [Interp] SCANNED [facility] Comment on above: LYMPHOPENIA NOTED Blood monocytes/100 leukocyt esOrdered By: Calvin Hester on 08-10-2023 Monocytes/100 WBC (Bld) 5.7 % 0-10 [facility] Blood platelet mean volumeOr dered By: Calvin Hester on 08-10-2023 Platelet mean volume (Bld) [Entitic vol] 9.1 fL 6.2-12.0 [facility] Determination of erythrocyte mean corpuscular volume (MCV)Ordered By: Calvin Hester on 08-10-2023 MCV (RBC) [Entitic vol] 100.0 fL 81-99 [facility] Hematocrit Auto (Bld) [Volum e fraction]Ordered By: Calvin Hester on 08-10-2023 Hematocrit (Bld) [Volume fraction] 33.8 % 37-47 [facility] Laboratory - Chemistry and C hemistry - challengeOrdered By: Calvin Hester on 08-10-2023 CO2 [Moles/Vol] 40.0 mmol/L 21.0-32.0 [facility] Magnesium [Mass/Vol] 2.1 mg/dL 1.6-2.6 [facility] Urea nitrogen/Creatinine [Mass ratio] 29.3 mg/mg 10-20 [facility] Laboratory - Hematology and Cell countsOrdered By: Calvin Hester on 08-10-2023 Erythrocyte distribution width (RBC) [Entitic vol] 51.8 fL 35.1-43.9 [facility] Erythrocyte distribution width (RBC) [Ratio] 14.1 % 11.6-14.6 [facility] Immature granulocytes/100 WBC (Bld) 0.400 % 0.0-0.9 [facility] Comment on above: IG% - Immature Granu locytes (promyelocytes, myelocytes and metamyelocytes) > 1% indicates that a LEFT SHIFT is Present. MCH (RBC) [Entitic mass] 29.3 pg 27.0-32.0 [facility] Nucleated RBC/100 WBC (Bld) [Ratio] 0 % 0-5 [facility] MCHC Auto (RBC) [Mass/Vol]Or dered By: Calvin Hester on 08-10-2023 MCHC (RBC) [Mass/Vol] 29.3 g/dL 32-36 [facility] No Panel InformationOrdered By: Calvin Hester on 08-10-2023 Estimated Creatinine Clearance Calc 45.09 ml/min [facility] Estimated GFR (MDRD) Amer 123 mL/min >60 [facility] Comment on above: GFR Calc Estimated GFR (MDRD) Non-Af Amer 101 mL/min >60 [facility] Comment on above: Non- GFR Calc Platelets bldOrdered By: Farooq Hester on 08-10-2023 Platelets (Bld) [#/Vol] 108 10*3/uL 150-450 [facility] Serum or plasma calcium celina urement (mass/volume)Ordered By: Calvin Hester on 08-10-2023 Calcium [Mass/Vol] 8.4 mg/dL 8.5-10.1 [facility] Serum or plasma creatinine m easurement (mass/volume)Ordered By: Calvin Hester on 08-10-2023 Creatinine [Mass/Vol] 0.61 mg/dL 0.55-1.02 [facility] Comment on above: The validity of the calculated GFR & GFRAA in patients over 70 years has not been determined. Clinical correlation is essential. Serum or plasma urea nitroge n measurement (mass/volume)Ordered By: Calvin Hester on 08-10-2023 Urea nitrogen [Mass/Vol] 18 mg/dL 7-18 [facility] Thin prep Papanicolaou smear with manual screeningOrdered By: Calvin Hester on 08-10-2023 Thin prep Papanicolaou smear with manual screening 1 5-15 [facility] Absolute lymphocyte countOrd ered By: Shahnaz Way on 07-14-2023 Lymphocytes Auto (Unsp spec) [#/Vol] 0.68 10*3/uL 0.83-4.51 [facility] Basophil percentageOrdered B y: Shahnaz Way on 07-14-2023 Basophil percentage 0 SEEN /hpf 0-5 [facility] Basophils/100 WBC (Bld) 0.2 % 0-1 [facility] Bilirubin [Mass/Vol] 0.30 mg/dL 0.20-1.00 [facility] Comment on above: For patients on eltr ombopag therapy, use of Dimension [place] TBIL is not recommended. Chloride [Moles/Vol] 103 mmol/L 98-107 [facility] Eosinophils/100 WBC (Bld) 1.3 % 0-5 [facility] Glucose [Mass/Vol] 127 mg/dL 74-106 [facility] Comment on above: Fasting Glucose resu lt greater than or equal to 126 mg/dL suggests DIABETES MELLITUS per A.D.A. criteria. Neutrophils (Bld) [#/Vol] 3.6 10*3/uL 2.0-7.7 [facility] Neutrophils/100 WBC (Bld) 76.9 % 47-70 [facility] Potassium [Moles/Vol] 3.7 mmol/L 3.5-5.1 [facility] Protein [Mass/Vol] 7.0 g/dL 6.4-8.2 [facility] Sodium [Moles/Vol] 144 mmol/L 136-145 [facility] WBC (Bld) [#/Vol] 4.6 10*3/uL 4.4-11.0 [facility] Bilirubin Test strip Ql (U)O rdered By: Shahnaz Way on 07-14-2023 Bilirubin Ql (U) Negative Negative [facility] Blood erythrocytes count (nu mber/volume)Ordered By: Shahnaz Way on 07-14-2023 RBC (Bld) [#/Vol] 3.10 10*6/uL 4.2-5.4 [facility] Blood hemoglobin measurement (mass/volume)Ordered By: Shahnaz Way on 07-14-2023 Hemoglobin (Bld) [Mass/Vol] 8.8 g/dL 12.0-15.0 [facility] Blood lymphocytes/100 leukoc ytesOrdered By: Shahnaz Way on 07-14-2023 Lymphocytes/100 WBC (Bld) 14.7 % 19-41 [facility] Blood monocytes/100 leukocyt esOrdered By: Shahnaz Way on 07-14-2023 Monocytes/100 WBC (Bld) 6.5 % 0-10 [facility] Blood platelet mean volumeOr dered By: Shahnaz Way on 07-14-2023 Platelet mean volume (Bld) [Entitic vol] 8.9 fL 6.2-12.0 [facility] Determination of erythrocyte mean corpuscular volume (MCV)Ordered By: Shahnaz Way on 07-14-2023 MCV (RBC) [Entitic vol] 101.3 fL 81-99 [facility] Hematocrit Auto (Bld) [Volum e fraction]Ordered By: Shahnaz Way on 07-14-2023 Hematocrit (Bld) [Volume fraction] 31.4 % 37-47 [facility] Ketones Test strip Ql (U)Ord ered By: Shahnaz Way on 07-14-2023 Ketones Ql (U) Negative Negative [facility] Laboratory - Chemistry and C hemistry - challengeOrdered By: Shahnaz Way on 07-14-2023 ALP [Catalytic activity/Vol] 76 U/L 45-117 [facility] ALT [Catalytic activity/Vol] 25 U/L 13-56 [facility] CO2 [Moles/Vol] 40.0 mmol/L 21.0-32.0 [facility] Globulin (S) [Mass/Vol] 4.4 g/dL 2.2-4.2 [facility] Urea nitrogen/Creatinine [Mass ratio] 37.6 mg/mg 10-20 [facility] Laboratory - Hematology and Cell countsOrdered By: Shahnaz Way on 07-14-2023 Erythrocyte distribution width (RBC) [Entitic vol] 53.1 fL 35.1-43.9 [facility] Erythrocyte distribution width (RBC) [Ratio] 14.4 % 11.6-14.6 [facility] Immature granulocytes/100 WBC (Bld) 0.400 % 0.0-0.9 [facility] Comment on above: IG% - Immature Granu locytes (promyelocytes, myelocytes and metamyelocytes) > 1% indicates that a LEFT SHIFT is Present. MCH (RBC) [Entitic mass] 28.4 pg 27.0-32.0 [facility] Nucleated RBC/100 WBC (Bld) [Ratio] 0 % 0-5 [facility] MCHC Auto (RBC) [Mass/Vol]Or dered By: Shahnaz Way on 07-14-2023 MCHC (RBC) [Mass/Vol] 28.0 g/dL 32-36 [facility] Mucus LM Ql (Urine sed)Order ed By: Shahnaz Way on 07-14-2023 Mucus Ql (Urine sed) 0 SEEN /hpf [facility] Nitrite Test strip Ql (U)Ord ered By: Shahnaz Way on 07-14-2023 Nitrite Ql (U) Negative Negative [facility] No Panel InformationOrdered By: Shahnaz Way on 07-14-2023 Estimated Creatinine Clearance Calc 45.09 ml/min [facility] Estimated GFR (MDRD) Amer 123 mL/min >60 [facility] Comment on above: GFR Calc Estimated GFR (MDRD) Non-Af Amer 102 mL/min >60 [facility] Comment on above: Non- GFR Calc Platelets bldOrdered By: Jaimee Way on 07-14-2023 Platelets (Bld) [#/Vol] 117 10*3/uL 150-450 [facility] Protein Test strip Ql (U)Ord ered By: Shahnaz Way on 07-14-2023 Protein Ql (U) 15 mg/dl Negative [facility] Serum or plasma albumin celina urement (mass/volume)Ordered By: Shahnaz Way on 07-14-2023 Albumin [Mass/Vol] 2.6 g/dL 3.2-5.0 [facility] Serum or plasma albumin/glob ulin mass ratioOrdered By: Shahnaz Way on 07-14-2023 Albumin/Globulin [Mass ratio] 0.6 {ratio} 0.9-2.4 [facility] Serum or plasma calcium celina urement (mass/volume)Ordered By: Shahnaz Way on 07-14-2023 Calcium [Mass/Vol] 8.8 mg/dL 8.5-10.1 [facility] Serum or plasma creatinine m easurement (mass/volume)Ordered By: Shahnaz Way on 07-14-2023 Creatinine [Mass/Vol] 0.61 mg/dL 0.55-1.02 [facility] Comment on above: The validity of the calculated GFR & GFRAA in patients over 70 years has not been determined. Clinical correlation is essential. Serum or plasma urea nitroge n measurement (mass/volume)Ordered By: Shahnaz Way on 07-14-2023 Urea nitrogen [Mass/Vol] 23 mg/dL 7-18 [facility] Squamous epithelial cells de tection in urine sediment by light microscopyOrdered By: Shahnaz Wya on 07-14-2023 Epithelial cells.squamous LM Ql (Urine sed) 0 SEEN /hpf 5-10 [facility] Thin prep Papanicolaou smear with manual screeningOrdered By: Shahnaz Way on 07-14-2023 Thin prep Papanicolaou smear with manual screening 17 U/L 15-37 [facility] Thin prep Papanicolaou smear with manual screening 1 5-15 [facility] Urine blood detectionOrdered By: Shahnaz Way on 07-14-2023 RBC Ql (U) Negative Negative [facility] RBC Ql (U) 0-5 SEEN /hpf 0-5 [facility] Urine clarityOrdered By: Jaimee Way on 07-14-2023 Clarity (U) Clear Clear [facility] Urine color determinationOrd ered By: Shahnaz Way on 07-14-2023 Color (U) Yellow Yellow [facility] Urine glucose detectionOrder ed By: Shahnaz Way on 07-14-2023 Glucose Ql (U) Normal mg/dl Normal [facility] Urine leukocyte esterase det ection by dipstickOrdered By: Shahnaz Way on 07-14-2023 Leukocyte esterase Test strip Ql (U) Negative Negative [facility] Urine pHOrdered By: Shahnaz hoffman on 07-14-2023 pH (U) 6.0 [pH] 5.0 - 8.0 [facility] Urine sediment bacteria coun t by microscopy (number/high power field)Ordered By: Shahnaz Way on 07-14-2023 Bacteria LM.HPF (Urine sed) [#/Area] 0 /[HPF] None Seen [facility] Urine specific gravity measu rementOrdered By: Shahnaz Way on 07-14-2023 Specific gravity (U) [Rel density] 1.020 1.002-1.030 [facility] Urobilinogen Auto test strip Ql (U)Ordered By: Shahnaz Way on 07-14-2023 Urobilinogen Ql (U) Normal mg/dl Normal [facility] Basophil percentageOrdered B y: Jonathan Dillard on 06-28-2023 Bilirubin [Mass/Vol] 0.40 mg/dL 0.20-1.00 [facility] Comment on above: For patients on eltr ombopag therapy, use of Dimension [place] TBIL is not recommended. Chloride [Moles/Vol] 101 mmol/L 98-107 [facility] Glucose [Mass/Vol] 117 mg/dL 74-106 [facility] Comment on above: Fasting Glucose resu lt from 100 to 125 mg/dL suggests IMPAIRED HOMEOSTASIS per A.D.A. criteria. Potassium [Moles/Vol] 3.9 mmol/L 3.5-5.1 [facility] Protein [Mass/Vol] 6.8 g/dL 6.4-8.2 [facility] Sodium [Moles/Vol] 145 mmol/L 136-145 [facility] WBC (Bld) [#/Vol] 4.6 10*3/uL 4.4-11.0 [facility] Blood erythrocytes count (nu mber/volume)Ordered By: Jonathan Dillard on 06-28-2023 RBC (Bld) [#/Vol] 3.02 10*6/uL 4.2-5.4 [facility] Blood hemoglobin measurement (mass/volume)Ordered By: Jonathan Dillard on 06-28-2023 Hemoglobin (Bld) [Mass/Vol] 8.6 g/dL 12.0-15.0 [facility] Blood platelet mean volumeOr dered By: Jonathan Dillard on 06-28-2023 Platelet mean volume (Bld) [Entitic vol] 9.0 fL 6.2-12.0 [facility] Determination of erythrocyte mean corpuscular volume (MCV)Ordered By: Jonathan Dillard on 06-28-2023 MCV (RBC) [Entitic vol] 101.7 fL 81-99 [facility] Hematocrit Auto (Bld) [Volum e fraction]Ordered By: Jonathan Dillard on 06-28-2023 Hematocrit (Bld) [Volume fraction] 30.7 % 37-47 [facility] Laboratory - Chemistry and C hemistry - challengeOrdered By: Jonathan Dillard on 06-28-2023 ALP [Catalytic activity/Vol] 72 U/L 45-117 [facility] ALT [Catalytic activity/Vol] 16 U/L 13-56 [facility] CO2 [Moles/Vol] 43.0 mmol/L 21.0-32.0 [facility] Globulin (S) [Mass/Vol] 4.2 g/dL 2.2-4.2 [facility] Lipase [Catalytic activity/Vol] 18 U/L 13-75 [facility] Comment on above: Please note:LIPASE r evised reference range effective 23. New Lipase methodology. Expected to produce lower values than the previous assay method. NEW Reference Range: 13 - 75 U/L Urea nitrogen/Creatinine [Mass ratio] 32.5 mg/mg 10-20 [facility] Laboratory - Hematology and Cell countsOrdered By: Jonathan Dillard on 06-28-2023 Erythrocyte distribution width (RBC) [Entitic vol] 53.0 fL 35.1-43.9 [facility] Erythrocyte distribution width (RBC) [Ratio] 14.1 % 11.6-14.6 [facility] MCH (RBC) [Entitic mass] 28.5 pg 27.0-32.0 [facility] MCHC Auto (RBC) [Mass/Vol]Or dered By: Jonathan Dillard on 06-28-2023 MCHC (RBC) [Mass/Vol] 28.0 g/dL 32-36 [facility] No Panel InformationOrdered By: Jonathan Dillard on 08-15-2023 Estimated GFR (MDRD) Amer 115 mL/min >60 [facility] Comment on above: GFR Calc Estimated GFR (MDRD) Non-Af Amer 95 mL/min >60 [facility] Comment on above: Non- GFR Calc Platelets bldOrdered By: Mervat Dillard on 06-28-2023 Platelets (Bld) [#/Vol] 111 10*3/uL 150-450 [facility] Serum or plasma albumin celina urement (mass/volume)Ordered By: Jonathan Dillard on 06-28-2023 Albumin [Mass/Vol] 2.6 g/dL 3.2-5.0 [facility] Serum or plasma albumin/glob ulin mass ratioOrdered By: Jonathan Dillard on 06-28-2023 Albumin/Globulin [Mass ratio] 0.6 {ratio} 0.9-2.4 [facility] Serum or plasma calcium celina urement (mass/volume)Ordered By: Jonathan Dillard on 06-28-2023 Calcium [Mass/Vol] 9.0 mg/dL 8.5-10.1 [facility] Serum or plasma creatinine m easurement (mass/volume)Ordered By: Jonathan Dillard on 06-28-2023 Creatinine [Mass/Vol] 0.65 mg/dL 0.55-1.02 [facility] Comment on above: The validity of the calculated GFR & GFRAA in patients over 70 years has not been determined. Clinical correlation is essential. Serum or plasma urea nitroge n measurement (mass/volume)Ordered By: Jonathan Dillard on 06-28-2023 Urea nitrogen [Mass/Vol] 21 mg/dL 7-18 [facility] Thin prep Papanicolaou smear with manual screeningOrdered By: Jonathan Dillard on 06-28-2023 Thin prep Papanicolaou smear with manual screening 12 U/L 15-37 [facility] Thin prep Papanicolaou smear with manual screening 1 -15 [facility] Basophil percentageOrdered B y: Jonathan Dillard on 06-13-2023 Bilirubin [Mass/Vol] 0.40 mg/dL 0.20-1.00 [facility] Comment on above: For patients on eltr ombopag therapy, use of Dimension [place] TBIL is not recommended. Chloride [Moles/Vol] 104 mmol/L 98-107 [facility] Glucose [Mass/Vol] 114 mg/dL 74-106 [facility] Comment on above: Fasting Glucose resu lt from 100 to 125 mg/dL suggests IMPAIRED HOMEOSTASIS per A.D.A. criteria. Potassium [Moles/Vol] 4.0 mmol/L 3.5-5.1 [facility] Protein [Mass/Vol] 6.8 g/dL 6.4-8.2 [facility] Sodium [Moles/Vol] 146 mmol/L 136-145 [facility] WBC (Bld) [#/Vol] 4.5 10*3/uL 4.4-11.0 [facility] Blood erythrocytes count (nu mber/volume)Ordered By: Jonathan Dillard on 06-13-2023 RBC (Bld) [#/Vol] 3.13 10*6/uL 4.2-5.4 [facility] Blood hemoglobin measurement (mass/volume)Ordered By: Jonathan Dillard on 06-13-2023 Hemoglobin (Bld) [Mass/Vol] 9.0 g/dL 12.0-15.0 [facility] Blood platelet mean volumeOr dered By: Jonathan Dillard on 06-13-2023 Platelet mean volume (Bld) [Entitic vol] 9.1 fL 6.2-12.0 [facility] Determination of erythrocyte mean corpuscular volume (MCV)Ordered By: Jonathan Dillard on 06-13-2023 MCV (RBC) [Entitic vol] 100.6 fL 81-99 [facility] Hematocrit Auto (Bld) [Volum e fraction]Ordered By: Jonathan Dillard on 06-13-2023 Hematocrit (Bld) [Volume fraction] 31.5 % 37-47 [facility] Laboratory - Chemistry and C hemistry - challengeOrdered By: Jonathan Dillard on 06-13-2023 ALP [Catalytic activity/Vol] 72 U/L 45-117 [facility] ALT [Catalytic activity/Vol] 14 U/L 13-56 [facility] CO2 [Moles/Vol] 42.0 mmol/L 21.0-32.0 [facility] Globulin (S) [Mass/Vol] 4.2 g/dL 2.2-4.2 [facility] Urea nitrogen/Creatinine [Mass ratio] 30.8 mg/mg 10-20 [facility] Laboratory - Hematology and Cell countsOrdered By: Jonathan Dillard on 06-13-2023 Erythrocyte distribution width (RBC) [Entitic vol] 51.3 fL 35.1-43.9 [facility] Erythrocyte distribution width (RBC) [Ratio] 13.9 % 11.6-14.6 [facility] MCH (RBC) [Entitic mass] 28.8 pg 27.0-32.0 [facility] MCHC Auto (RBC) [Mass/Vol]Or dered By: Jonathan Dillard on 06-13-2023 MCHC (RBC) [Mass/Vol] 28.6 g/dL 32-36 [facility] No Panel InformationOrdered By: Jonathan Dillard on 06-13-2023 Estimated GFR (MDRD) Amer 115 mL/min >60 [facility] Comment on above: GFR Calc Estimated GFR (MDRD) Non-Af Amer 95 mL/min >60 [facility] Comment on above: Non- GFR Calc Platelets bldOrdered By: Mervat Dillard on 06-13-2023 Platelets (Bld) [#/Vol] 112 10*3/uL 150-450 [facility] Serum or plasma albumin celina urement (mass/volume)Ordered By: Jonathan Dillard on 06-13-2023 Albumin [Mass/Vol] 2.6 g/dL 3.2-5.0 [facility] Serum or plasma albumin/glob ulin mass ratioOrdered By: Jonathan Dillard on 06-13-2023 Albumin/Globulin [Mass ratio] 0.6 {ratio} 0.9-2.4 [facility] Serum or plasma calcium celina urement (mass/volume)Ordered By: Jonathan Dillard on 06-13-2023 Calcium [Mass/Vol] 8.9 mg/dL 8.5-10.1 [facility] Serum or plasma creatinine m easurement (mass/volume)Ordered By: Jonathan Dillard on 06-13-2023 Creatinine [Mass/Vol] 0.65 mg/dL 0.55-1.02 [facility] Comment on above: The validity of the calculated GFR & GFRAA in patients over 70 years has not been determined. Clinical correlation is essential. Serum or plasma urea nitroge n measurement (mass/volume)Ordered By: Jonathan Dillard on 06-13-2023 Urea nitrogen [Mass/Vol] 20 mg/dL 7-18 [facility] Thin prep Papanicolaou smear with manual screeningOrdered By: Jonathan Dillard on 06-13-2023 Thin prep Papanicolaou smear with manual screening 11 U/L 15-37 [facility] Thin prep Papanicolaou smear with manual screening 0 5-15 [facility] Absolute lymphocyte countOrd ered By: Delfin Jeffries on 05-04-2023 Lymphocytes Auto (Unsp spec) [#/Vol] 0.78 10*3/uL 0.83-4.51 [facility] Basophil percentageOrdered B y: Delfin Jeffries on 05-04-2023 Basophils/100 WBC (Bld) 0.2 % 0-1 [facility] Bilirubin [Mass/Vol] 0.40 mg/dL 0.20-1.00 [facility] Comment on above: For patients on eltr ombopag therapy, use of Dimension [place] TBIL is not recommended. Chloride [Moles/Vol] 104 mmol/L 98-107 [facility] Eosinophils/100 WBC (Bld) 1.3 % 0-5 [facility] Glucose [Mass/Vol] 175 mg/dL 74-106 [facility] Comment on above: Fasting Glucose resu lt greater than or equal to 126 mg/dL suggests DIABETES MELLITUS per A.D.A. criteria. LDH [Catalytic activity/Vol] 125 U/L 84-246 [facility] Neutrophils (Bld) [#/Vol] 4.2 10*3/uL 2.0-7.7 [facility] Neutrophils/100 WBC (Bld) 79.1 % 47-70 [facility] Potassium [Moles/Vol] 4.0 mmol/L 3.5-5.1 [facility] Protein [Mass/Vol] 7.5 g/dL 6.4-8.2 [facility] Sodium [Moles/Vol] 144 mmol/L 136-145 [facility] WBC (Bld) [#/Vol] 5.3 10*3/uL 4.4-11.0 [facility] Blood erythrocytes count (nu mber/volume)Ordered By: Delfin Jeffries on 05-04-2023 RBC (Bld) [#/Vol] 3.49 10*6/uL 4.2-5.4 [facility] Blood hemoglobin measurement (mass/volume)Ordered By: Delfin Jeffries on 05-04-2023 Hemoglobin (Bld) [Mass/Vol] 10.2 g/dL 12.0-15.0 [facility] Blood lymphocytes/100 leukoc ytesOrdered By: Delfin Jeffries on 05-04-2023 Lymphocytes/100 WBC (Bld) 14.7 % 19-41 [facility] Blood monocytes/100 leukocyt esOrdered By: Delfin Jeffries on 05-04-2023 Monocytes/100 WBC (Bld) 4.3 % 0-10 [facility] Blood platelet mean volumeOr dered By: Delfin Jeffries on 05-04-2023 Platelet mean volume (Bld) [Entitic vol] 8.6 fL 6.2-12.0 [facility] Determination of erythrocyte mean corpuscular volume (MCV)Ordered By: Delfin Jeffries on 05-04-2023 MCV (RBC) [Entitic vol] 99.7 fL 81-99 [facility] Hematocrit Auto (Bld) [Volum e fraction]Ordered By: Delfin Jeffries on 05-04-2023 Hematocrit (Bld) [Volume fraction] 34.8 % 37-47 [facility] Hemoglobin in reticulocytes (mass per reticulocyte)Ordered By: Delfin Jeffries on 05-04-2023 Hemoglobin (Reticulocytes) [Entitic mass] 31.0 pg 30-35 [facility] Iron measurement (mass/mass) Ordered By: Delfin Jeffries on 05-04-2023 Iron (Unsp spec) [Mass/Mass] 42 ug/dL 50-170 [facility] Laboratory - Chemistry and C hemistry - challengeOrdered By: Delfin Jeffries on 05-04-2023 ALP [Catalytic activity/Vol] 84 U/L 45-117 [facility] ALT [Catalytic activity/Vol] 21 U/L 13-56 [facility] CO2 [Moles/Vol] 39.0 mmol/L 21.0-32.0 [facility] Globulin (S) [Mass/Vol] 4.5 g/dL 2.2-4.2 [facility] Urea nitrogen/Creatinine [Mass ratio] 32.1 mg/mg 10-20 [facility] Laboratory - Hematology and Cell countsOrdered By: Delfin Jeffries on 05-04-2023 Erythrocyte distribution width (RBC) [Entitic vol] 51.9 fL 35.1-43.9 [facility] Erythrocyte distribution width (RBC) [Ratio] 14.6 % 11.6-14.6 [facility] Immature granulocytes/100 WBC (Bld) 0.400 % 0.0-0.9 [facility] Comment on above: IG% - Immature Granu locytes (promyelocytes, myelocytes and metamyelocytes) > 1% indicates that a LEFT SHIFT is Present. MCH (RBC) [Entitic mass] 29.2 pg 27.0-32.0 [facility] Nucleated RBC/100 WBC (Bld) [Ratio] 0 % 0-5 [facility] MCHC Auto (RBC) [Mass/Vol]Or dered By: Delfin Jeffries on 05-04-2023 MCHC (RBC) [Mass/Vol] 29.3 g/dL 32-36 [facility] No Panel InformationOrdered By: Delfin Jeffries on 05-04-2023 Estimated GFR (MDRD) Amer 103 mL/min >60 [facility] Comment on above: GFR Calc Estimated GFR (MDRD) Non-Af Amer 85 mL/min >60 [facility] Comment on above: Non- GFR Calc Immature Reticulocyte Fraction 26.90 % 3.00-15.90 [facility] Reticulocyte Count 2.39 % 0.5-1.5 [facility] Total Iron Binding Capacity 197 ug/dL 250-450 [facility] Platelets bldOrdered By: Luciano Jeffries on 05-04-2023 Platelets (Bld) [#/Vol] 107 10*3/uL 150-450 [facility] Serum or plasma albumin celina urement (mass/volume)Ordered By: Delfin Jeffries on 05-04-2023 Albumin [Mass/Vol] 3.0 g/dL 3.2-5.0 [facility] Serum or plasma albumin/glob ulin mass ratioOrdered By: Delfin Jeffries on 05-04-2023 Albumin/Globulin [Mass ratio] 0.7 {ratio} 0.9-2.4 [facility] Serum or plasma calcium celina urement (mass/volume)Ordered By: Delfin Jeffries on 05-04-2023 Calcium [Mass/Vol] 8.7 mg/dL 8.5-10.1 [facility] Serum or plasma creatinine m easurement (mass/volume)Ordered By: Delfin Benson on 05-04-2023 Creatinine [Mass/Vol] 0.72 mg/dL 0.55-1.02 [facility] Comment on above: The validity of the calculated GFR & GFRAA in patients over 70 years has not been determined. Clinical correlation is essential. Serum or plasma ferritin carter surement (mass/volume)Ordered By: Delfin Jeffries on 05-04-2023 Ferritin [Mass/Vol] 192 ng/mL 8-252 [facility] Serum or plasma iron saturat ion measurement (mass fraction)Ordered By: Delfin Kelley on 05-04-2023 Iron saturation [Mass fraction] 21.3 % 15.0-55.0 [facility] Serum or plasma urea nitroge n measurement (mass/volume)Ordered By: [facility]in [facility] Urea nitrogen [Mass/Vol] 23 mg/dL 7-18 [facility] Thin prep Papanicolaou smear with manual screeningOrdered By: Delfin Jeffries on 05-04-2023 Thin prep Papanicolaou smear with manual screening 16 U/L 15-37 [facility] Thin prep Papanicolaou smear with manual screening 1 5-15 [facility] Absolute lymphocyte countOrd ered By: Dr. Vela on 04-19-2023 Lymphocytes Auto (Unsp spec) [#/Vol] 0.71 10*3/uL 0.83-4.51 [facility] Basophil percentageOrdered B y: Dr. Vela on 04-19-2023 Basophil percentage 0 SEEN /hpf 0-5 [facility] Basophils/100 WBC (Bld) 0.2 % 0-1 [facility] Bilirubin [Mass/Vol] 0.40 mg/dL 0.20-1.00 [facility] Comment on above: For patients on eltr ombopag therapy, use of Dimension [place] TBIL is not recommended. Chloride [Moles/Vol] 102 mmol/L 98-107 [facility] Eosinophils/100 WBC (Bld) 0.9 % 0-5 [facility] Glucose [Mass/Vol] 108 mg/dL 74-106 [facility] Comment on above: Fasting Glucose resu lt from 100 to 125 mg/dL suggests IMPAIRED HOMEOSTASIS per A.D.A. criteria. Neutrophils (Bld) [#/Vol] 5.2 10*3/uL 2.0-7.7 [facility] Neutrophils/100 WBC (Bld) 81.7 % 47-70 [facility] Potassium [Moles/Vol] 3.9 mmol/L 3.5-5.1 [facility] Protein [Mass/Vol] 7.7 g/dL 6.4-8.2 [facility] Sodium [Moles/Vol] 146 mmol/L 136-145 [facility] WBC (Bld) [#/Vol] 6.3 10*3/uL 4.4-11.0 [facility] Bilirubin Test strip Ql (U)O rdered By: Dr. Vela on 04-19-2023 Bilirubin Ql (U) Negative Negative [facility] Blood erythrocytes count (nu mber/volume)Ordered By: Dr. Vela on 04-19-2023 RBC (Bld) [#/Vol] 3.35 10*6/uL 4.2-5.4 [facility] Blood hemoglobin measurement (mass/volume)Ordered By: Dr. Vela on 04-19-2023 Hemoglobin (Bld) [Mass/Vol] 9.6 g/dL 12.0-15.0 [facility] Blood lymphocytes/100 leukoc ytesOrdered By: Dr. Vela on 04-19-2023 Lymphocytes/100 WBC (Bld) 11.2 % 19-41 [facility] Blood monocytes/100 leukocyt esOrdered By: Dr. Vela on 04-19-2023 Monocytes/100 WBC (Bld) 5.5 % 0-10 [facility] Blood platelet mean volumeOr dered By: Dr. Vela on 04-19-2023 Platelet mean volume (Bld) [Entitic vol] 9.5 fL 6.2-12.0 [facility] Determination of erythrocyte mean corpuscular volume (MCV)Ordered By: Dr. Vela on 04-19-2023 MCV (RBC) [Entitic vol] 98.5 fL 81-99 [facility] Hematocrit Auto (Bld) [Volum e fraction]Ordered By: Dr. Vela on 04-19-2023 Hematocrit (Bld) [Volume fraction] 33.0 % 37-47 [facility] Ketones Test strip Ql (U)Ord ered By: Dr. Vela on 04-19-2023 Ketones Ql (U) Negative Negative [facility] Laboratory - Chemistry and C hemistry - challengeOrdered By: Dr. Vela on 04-19-2023 ALP [Catalytic activity/Vol] 96 U/L 45-117 [facility] ALT [Catalytic activity/Vol] 21 U/L 13-56 [facility] CO2 [Moles/Vol] 41.0 mmol/L 21.0-32.0 [facility] Globulin (S) [Mass/Vol] 4.6 g/dL 2.2-4.2 [facility] Urea nitrogen/Creatinine [Mass ratio] 36.2 mg/mg 10-20 [facility] Laboratory - Hematology and Cell countsOrdered By: Dr. Vela on 04-19-2023 Erythrocyte distribution width (RBC) [Entitic vol] 50.7 fL 35.1-43.9 [facility] Erythrocyte distribution width (RBC) [Ratio] 14.2 % 11.6-14.6 [facility] Immature granulocytes/100 WBC (Bld) 0.500 % 0.0-0.9 [facility] Comment on above: IG% - Immature Granu locytes (promyelocytes, myelocytes and metamyelocytes) > 1% indicates that a LEFT SHIFT is Present. MCH (RBC) [Entitic mass] 28.7 pg 27.0-32.0 [facility] Nucleated RBC/100 WBC (Bld) [Ratio] 0 % 0-5 [facility] MCHC Auto (RBC) [Mass/Vol]Or dered By: Dr. Vela on 04-19-2023 MCHC (RBC) [Mass/Vol] 29.1 g/dL 32-36 [facility] Mucus LM Ql (Urine sed)Order ed By: Dr. Vela on 04-19-2023 Mucus Ql (Urine sed) 0 SEEN /hpf [facility] Nitrite Test strip Ql (U)Ord ered By: Dr. Vela on 04-19-2023 Nitrite Ql (U) Negative Negative [facility] No Panel InformationOrdered By: Dr. Vela on 04-19-2023 Estimated Creatinine Clearance Calc 45.09 ml/min [facility] Estimated GFR (MDRD) Amer 118 mL/min >60 [facility] Comment on above: GFR Calc Estimated GFR (MDRD) Non-Af Amer 97 mL/min >60 [facility] Comment on above: Non- GFR Calc Platelets bldOrdered By: Dr. Vela on 04-19-2023 Platelets (Bld) [#/Vol] 103 10*3/uL 150-450 [facility] Protein Test strip Ql (U)Ord ered By: Dr. Vela on 04-19-2023 Protein Ql (U) Negative Negative [facility] Serum or plasma albumin celina urement (mass/volume)Ordered By: Dr. Vela on 04-19-2023 Albumin [Mass/Vol] 3.1 g/dL 3.2-5.0 [facility] Serum or plasma albumin/glob ulin mass ratioOrdered By: Dr. Vela on 04-19-2023 Albumin/Globulin [Mass ratio] 0.7 {ratio} 0.9-2.4 [facility] Serum or plasma calcium celina urement (mass/volume)Ordered By: Dr. Vela on 04-19-2023 Calcium [Mass/Vol] 9.3 mg/dL 8.5-10.1 [facility] Serum or plasma creatinine m easurement (mass/volume)Ordered By: Dr. Vela on 04-19-2023 Creatinine [Mass/Vol] 0.64 mg/dL 0.55-1.02 [facility] Comment on above: The validity of the calculated GFR & GFRAA in patients over 70 years has not been determined. Clinical correlation is essential. Serum or plasma urea nitroge n measurement (mass/volume)Ordered By: Dr. Vela on 04-19-2023 Urea nitrogen [Mass/Vol] 23 mg/dL 7-18 [facility] Squamous epithelial cells de tection in urine sediment by light microscopyOrdered By: Dr. Vela on 04-19-2023 Epithelial cells.squamous LM Ql (Urine sed) 0 SEEN /hpf 5-10 [facility] Thin prep Papanicolaou smear with manual screeningOrdered By: Dr. Vela on 04-19-2023 Thin prep Papanicolaou smear with manual screening 16 U/L 15-37 [facility] Thin prep Papanicolaou smear with manual screening 3 5-15 [facility] Urine blood detectionOrdered By: Dr. Vela on 04-19-2023 RBC Ql (U) Negative Negative [facility] RBC Ql (U) 0 SEEN /hpf 0-5 [facility] Urine clarityOrdered By: Dr. Vela on 04-19-2023 Clarity (U) Clear Clear [facility] Urine color determinationOrd ered By: Dr. Vela on 04-19-2023 Color (U) Yellow Yellow [facility] Urine glucose detectionOrder ed By: Dr. Vela on 04-19-2023 Glucose Ql (U) Normal mg/dl Normal [facility] Urine leukocyte esterase det ection by dipstickOrdered By: Dr. Vela on 04-19-2023 Leukocyte esterase Test strip Ql (U) Negative Negative [facility] Urine pHOrdered By: Dr. Isaias barkley on 04-19-2023 pH (U) 6.5 [pH] 5.0 - 8.0 [facility] Urine sediment bacteria coun t by microscopy (number/high power field)Ordered By: Dr. Vela on 04-19-2023 Bacteria LM.HPF (Urine sed) [#/Area] 0 /[HPF] None Seen [facility] Urine specific gravity measu rementOrdered By: Dr. Vela on 04-19-2023 Specific gravity (U) [Rel density] 1.010 1.002-1.030 [facility] Urobilinogen Auto test strip Ql (U)Ordered By: Dr. Vela on 04-19-2023 Urobilinogen Ql (U) Normal mg/dl Normal [facility] Culture, urineOrdered By: Sutherland Deperrletty on 04-15-2023 Bacteria identified Cx Nom (U) Presumptive E. coli [facility] Bacteria identified Cx Nom (U) Klebsiella pneumoniae sp pneum [facility] Basophil percentageOrdered B y: Jonathan Dillard on 04-12-2023 Basophil percentage 0-5 SEEN /hpf 0-5 [facility] Bilirubin [Mass/Vol] 0.50 mg/dL 0.20-1.00 [facility] Comment on above: For patients on eltr ombopag therapy, use of Dimension [place] TBIL is not recommended. Chloride [Moles/Vol] 102 mmol/L 98-107 [facility] Glucose [Mass/Vol] 122 mg/dL 74-106 [facility] Comment on above: Fasting Glucose resu lt from 100 to 125 mg/dL suggests IMPAIRED HOMEOSTASIS per A.D.A. criteria. Potassium [Moles/Vol] 3.7 mmol/L 3.5-5.1 [facility] Protein [Mass/Vol] 6.9 g/dL 6.4-8.2 [facility] Sodium [Moles/Vol] 145 mmol/L 136-145 [facility] WBC (Bld) [#/Vol] 5.1 10*3/uL 4.4-11.0 [facility] Bilirubin Test strip Ql (U)O rdered By: Jonathan Dillard on 04-12-2023 Bilirubin Ql (U) Negative Negative [facility] Blood erythrocytes count (nu mber/volume)Ordered By: Jonathan Dillard on 04-12-2023 RBC (Bld) [#/Vol] 3.16 10*6/uL 4.2-5.4 [facility] Blood hemoglobin measurement (mass/volume)Ordered By: Jonathan Dillard on 04-12-2023 Hemoglobin (Bld) [Mass/Vol] 8.9 g/dL 12.0-15.0 [facility] Blood platelet mean volumeOr dered By: Jonathan Dillard on 04-12-2023 Platelet mean volume (Bld) [Entitic vol] 9.1 fL 6.2-12.0 [facility] Culture, urineOrdered By: Higuera on 04-12-2023 Bacteria identified Cx Nom (U) Presumptive E. coli [facility] Bacteria identified Cx Nom (U) Klebsiella pneumoniae sp pneum [facility] Determination of erythrocyte mean corpuscular volume (MCV)Ordered By: Jonathan Dillard on 04-12-2023 MCV (RBC) [Entitic vol] 99.7 fL 81-99 [facility] Hematocrit Auto (Bld) [Volum e fraction]Ordered By: Jonathan Dillard on 04-12-2023 Hematocrit (Bld) [Volume fraction] 31.5 % 37-47 [facility] Ketones Test strip Ql (U)Ord ered By: Jonathan Dillard on 04-12-2023 Ketones Ql (U) Negative Negative [facility] Laboratory - Chemistry and C hemistry - challengeOrdered By: Jonathan Dillard on 04-12-2023 ALP [Catalytic activity/Vol] 83 U/L 45-117 [facility] ALT [Catalytic activity/Vol] 20 U/L 13-56 [facility] CO2 [Moles/Vol] 42.0 mmol/L 21.0-32.0 [facility] Globulin (S) [Mass/Vol] 4.1 g/dL 2.2-4.2 [facility] Urea nitrogen/Creatinine [Mass ratio] 34.6 mg/mg 10-20 [facility] Laboratory - Hematology and Cell countsOrdered By: Jonathan Dillard on 04-12-2023 Erythrocyte distribution width (RBC) [Entitic vol] 53.0 fL 35.1-43.9 [facility] Erythrocyte distribution width (RBC) [Ratio] 14.5 % 11.6-14.6 [facility] MCH (RBC) [Entitic mass] 28.2 pg 27.0-32.0 [facility] MCHC Auto (RBC) [Mass/Vol]Or dered By: Jonathan Dillard on 04-12-2023 MCHC (RBC) [Mass/Vol] 28.3 g/dL 32-36 [facility] Mucus LM Ql (Urine sed)Order ed By: Jonathan Dillard on 04-12-2023 Mucus Ql (Urine sed) 0 SEEN /hpf [facility] Nitrite Test strip Ql (U)Ord ered By: Jonathan Dillard on 04-12-2023 Nitrite Ql (U) Negative Negative [facility] No Panel InformationOrdered By: Jonathan Dillard on 04-12-2023 Estimated GFR (MDRD) Amer 112 mL/min >60 [facility] Comment on above: GFR Calc Estimated GFR (MDRD) Non-Af Amer 93 mL/min >60 [facility] Comment on above: Non- GFR Calc Platelets bldOrdered By: Mervat Dillard on 04-12-2023 Platelets (Bld) [#/Vol] 115 10*3/uL 150-450 [facility] Protein Test strip Ql (U)Ord ered By: Jonathan Dillard on 04-12-2023 Protein Ql (U) Negative Negative [facility] Serum or plasma albumin celina urement (mass/volume)Ordered By: Jonathan Dillard on 04-12-2023 Albumin [Mass/Vol] 2.8 g/dL 3.2-5.0 [facility] Serum or plasma albumin/glob ulin mass ratioOrdered By: Jonathan Dillard on 04-12-2023 Albumin/Globulin [Mass ratio] 0.7 {ratio} 0.9-2.4 [facility] Serum or plasma calcium celina urement (mass/volume)Ordered By: Jonathan Dillard on 04-12-2023 Calcium [Mass/Vol] 9.0 mg/dL 8.5-10.1 [facility] Serum or plasma creatinine m easurement (mass/volume)Ordered By: Jonathan Dillard on 04-12-2023 Creatinine [Mass/Vol] 0.66 mg/dL 0.55-1.02 [facility] Comment on above: The validity of the calculated GFR & GFRAA in patients over 70 years has not been determined. Clinical correlation is essential. Serum or plasma urea nitroge n measurement (mass/volume)Ordered By: Jonathan Dillard on 04-12-2023 Urea nitrogen [Mass/Vol] 23 mg/dL 7-18 [facility] Squamous epithelial cells de tection in urine sediment by light microscopyOrdered By: Jonathan Dillard on 04-12-2023 Epithelial cells.squamous LM Ql (Urine sed) 0-5 SEEN /hpf 5-10 [facility] Thin prep Papanicolaou smear with manual screeningOrdered By: Jonathan Dillard on 04-12-2023 Thin prep Papanicolaou smear with manual screening 14 U/L 15-37 [facility] Thin prep Papanicolaou smear with manual screening 1 5-15 [facility] Urine blood detectionOrdered By: Jonathan Dillard on 04-12-2023 RBC Ql (U) Negative Negative [facility] RBC Ql (U) 0-5 SEEN /hpf 0-5 [facility] Urine clarityOrdered By: Mervat Dillard on 04-12-2023 Clarity (U) Clear Clear [facility] Urine color determinationOrd ered By: Jonathan Dillard on 04-12-2023 Color (U) Yellow Yellow [facility] Urine glucose detectionOrder ed By: Jonathan Dillard on 04-12-2023 Glucose Ql (U) Normal mg/dl Normal [facility] Urine leukocyte esterase det ection by dipstickOrdered By: Jonathan Dillard on 04-12-2023 Leukocyte esterase Test strip Ql (U) 25 /ul Negative [facility] Urine pHOrdered By: Jonathan ramirez on 04-12-2023 pH (U) 5.0 [pH] 5.0 - 8.0 [facility] Urine sediment bacteria coun t by microscopy (number/high power field)Ordered By: Jonathan Dillard on 04-12-2023 Bacteria LM.HPF (Urine sed) [#/Area] 0 /[HPF] None Seen [facility] Urine specific gravity measu rementOrdered By: Jonathan Dillard on 04-12-2023 Specific gravity (U) [Rel density] 1.020 1.002-1.030 [facility] Urobilinogen Auto test strip Ql (U)Ordered By: Jonathan Dillard on 04-12-2023 Urobilinogen Ql (U) Normal mg/dl Normal [facility] Basophil percentageOrdered B y: Jonathan Dillard on 03-28-2023 WBC (Bld) [#/Vol] 4.3 10*3/uL 4.4-11.0 [facility] Blood erythrocytes count (nu mber/volume)Ordered By: Jonathan Dillard on 03-28-2023 RBC (Bld) [#/Vol] 3.38 10*6/uL 4.2-5.4 [facility] Blood hemoglobin measurement (mass/volume)Ordered By: Jonathan Dillard on 03-28-2023 Hemoglobin (Bld) [Mass/Vol] 9.5 g/dL 12.0-15.0 [facility] Blood platelet mean volumeOr dered By: Jonathan Dillard on 03-28-2023 Platelet mean volume (Bld) [Entitic vol] 9.3 fL 6.2-12.0 [facility] Determination of erythrocyte mean corpuscular volume (MCV)Ordered By: Jonathan Dillard on 03-28-2023 MCV (RBC) [Entitic vol] 100.6 fL 81-99 [facility] Hematocrit Auto (Bld) [Volum e fraction]Ordered By: Jonathan Dillard on 03-28-2023 Hematocrit (Bld) [Volume fraction] 34.0 % 37-47 [facility] Laboratory - Hematology and Cell countsOrdered By: Jonathan Dillard on 03-28-2023 Erythrocyte distribution width (RBC) [Entitic vol] 54.0 fL 35.1-43.9 [facility] Erythrocyte distribution width (RBC) [Ratio] 14.7 % 11.6-14.6 [facility] MCH (RBC) [Entitic mass] 28.1 pg 27.0-32.0 [facility] MCHC Auto (RBC) [Mass/Vol]Or dered By: Jonathan Dillard on 03-28-2023 MCHC (RBC) [Mass/Vol] 27.9 g/dL 32-36 [facility] Platelets bldOrdered By: Mervat Dillard on 03-28-2023 Platelets (Bld) [#/Vol] 116 10*3/uL 150-450 [facility] Absolute lymphocyte countOrd ered By: Dr. Jeffries on 03-09-2023 Lymphocytes Auto (Unsp spec) [#/Vol] 0.69 10*3/uL 0.83-4.51 [facility] Basophil percentageOrdered B y: Dr. Jeffries on 03-09-2023 Basophil percentage 3.0 mg/dL 2.5-4.9 [facility] Basophils/100 WBC (Bld) 0.2 % 0-1 [facility] Eosinophils/100 WBC (Bld) 0.9 % 0-5 [facility] LDH [Catalytic activity/Vol] 131 U/L 84-246 [facility] Neutrophils (Bld) [#/Vol] 4.4 10*3/uL 2.0-7.7 [facility] Neutrophils/100 WBC (Bld) 80.2 % 47-70 [facility] WBC (Bld) [#/Vol] 5.5 10*3/uL 4.4-11.0 [facility] Blood erythrocytes count (nu mber/volume)Ordered By: Dr. Jeffries on 03-09-2023 RBC (Bld) [#/Vol] 3.49 10*6/uL 4.2-5.4 [facility] Blood hemoglobin measurement (mass/volume)Ordered By: Dr. Jeffries on 03-09-2023 Hemoglobin (Bld) [Mass/Vol] 9.6 g/dL 12.0-15.0 [facility] Blood lymphocytes/100 leukoc ytesOrdered By: Dr. Jeffries on 03-09-2023 Lymphocytes/100 WBC (Bld) 12.6 % 19-41 [facility] Blood monocytes/100 leukocyt esOrdered By: Dr. Jeffries on 03-09-2023 Monocytes/100 WBC (Bld) 5.7 % 0-10 [facility] Blood platelet mean volumeOr dered By: Dr. Jeffries on 03-09-2023 Platelet mean volume (Bld) [Entitic vol] 9.6 fL 6.2-12.0 [facility] Determination of erythrocyte mean corpuscular volume (MCV)Ordered By: Dr. Jeffries on 03-09-2023 MCV (RBC) [Entitic vol] 97.7 fL 81-99 [facility] Hematocrit Auto (Bld) [Volum e fraction]Ordered By: Dr. Jeffries on 03-09-2023 Hematocrit (Bld) [Volume fraction] 34.1 % 37-47 [facility] Iron measurement (mass/mass) Ordered By: Dr. Jeffries on 03-09-2023 Iron (Unsp spec) [Mass/Mass] 30 ug/dL 50-170 [facility] Laboratory - Chemistry and C hemistry - challengeOrdered By: Dr. Jeffries on 03-09-2023 Cobalamin (Vitamin B12) [Mass/Vol] 669 pg/mL 211-911 [facility] Magnesium [Mass/Vol] 2.0 mg/dL 1.6-2.6 [facility] Laboratory - Hematology and Cell countsOrdered By: Dr. Jeffries on 03-09-2023 Erythrocyte distribution width (RBC) [Entitic vol] 52.1 fL 35.1-43.9 [facility] Erythrocyte distribution width (RBC) [Ratio] 14.6 % 11.6-14.6 [facility] Immature granulocytes/100 WBC (Bld) 0.400 % 0.0-0.9 [facility] Comment on above: IG% - Immature Granu locytes (promyelocytes, myelocytes and metamyelocytes) > 1% indicates that a LEFT SHIFT is Present. MCH (RBC) [Entitic mass] 27.5 pg 27.0-32.0 [facility] Nucleated RBC/100 WBC (Bld) [Ratio] 0 % 0-5 [facility] MCHC Auto (RBC) [Mass/Vol]Or dered By: Dr. Jeffries on 03-09-2023 MCHC (RBC) [Mass/Vol] 28.2 g/dL 32-36 [facility] No Panel InformationOrdered By: Dr. Jeffries on 03-09-2023 Total Iron Binding Capacity 196 ug/dL 250-450 [facility] Platelets bldOrdered By: Dr. Jeffries on 03-09-2023 Platelets (Bld) [#/Vol] 109 10*3/uL 150-450 [facility] Serum or plasma ferritin carter surement (mass/volume)Ordered By: Dr. Jeffries on 03-09-2023 Ferritin [Mass/Vol] 67 ng/mL 8-252 [facility] Serum or plasma iron saturat ion measurement (mass fraction)Ordered By: Dr. Jeffries on 03-09-2023 Iron saturation [Mass fraction] 15.3 % 15.0-55.0 [facility] No Panel InformationOrdered By: Jontahan Dillard on 03-08-2023 CA 125 Antigen 28.1 U/mL 0.0-38.1 [facility] Comment on above: [facility] El ectrochemiluminescence Immunoassay(ECLIA)Values obtained with different assay methods or kits cannotbe used interchangeably. Results cannot be interpreted asabsolute evidence of the presence or absence of malignantdisease.Performed at: [employer] [facility] [id number] Director: Mark Woo PhD, Phone: [phone] Basophil percentageOrdered B y: Jonathan Dillard on 03-04-2023 Chloride [Moles/Vol] 102 mmol/L 98-107 [facility] Glucose [Mass/Vol] 154 mg/dL 74-106 [facility] Comment on above: Fasting Glucose resu lt greater than or equal to 126 mg/dL suggests DIABETES MELLITUS per A.D.A. criteria. Potassium [Moles/Vol] 3.5 mmol/L 3.5-5.1 [facility] Sodium [Moles/Vol] 144 mmol/L 136-145 [facility] Laboratory - Chemistry and C hemistry - challengeOrdered By: Jonathan Dillard on 03-04-2023 CO2 [Moles/Vol] 44.0 mmol/L 21.0-32.0 [facility] Urea nitrogen/Creatinine [Mass ratio] 29.9 mg/mg 10-20 [facility] No Panel InformationOrdered By: Jonathan Dillard on 03-04-2023 Estimated GFR (MDRD) Amer 111 mL/min >60 [facility] Comment on above: GFR Calc Estimated GFR (MDRD) Non-Af Amer 92 mL/min >60 [facility] Comment on above: Non- GFR Calc Serum or plasma calcium celina urement (mass/volume)Ordered By: Jonathan Dillard on 03-04-2023 Calcium [Mass/Vol] 9.0 mg/dL 8.5-10.1 [facility] Serum or plasma creatinine m easurement (mass/volume)Ordered By: Jonathan Dillard on 03-04-2023 Creatinine [Mass/Vol] 0.67 mg/dL 0.55-1.02 [facility] Comment on above: The validity of the calculated GFR & GFRAA in patients over 70 years has not been determined. Clinical correlation is essential. Serum or plasma urea nitroge n measurement (mass/volume)Ordered By: Jonathan Dillard on 03-04-2023 Urea nitrogen [Mass/Vol] 20 mg/dL 7-18 [facility] Thin prep Papanicolaou smear with manual screeningOrdered By: Jonathan iDllard on 03-04-2023 Thin prep Papanicolaou smear with manual screening -2 5-15 [facility] Basophil percentageOrdered B y: Jonathan Dillard on 02-28-2023 Chloride [Moles/Vol] 104 mmol/L 98-107 [facility] Glucose [Mass/Vol] 150 mg/dL 74-106 [facility] Comment on above: Fasting Glucose resu lt greater than or equal to 126 mg/dL suggests DIABETES MELLITUS per A.D.A. criteria. Potassium [Moles/Vol] 3.4 mmol/L 3.5-5.1 [facility] Sodium [Moles/Vol] 144 mmol/L 136-145 [facility] WBC (Bld) [#/Vol] 4.5 10*3/uL 4.4-11.0 [facility] Blood erythrocytes count (nu mber/volume)Ordered By: Jonathan Dillard on 02-28-2023 RBC (Bld) [#/Vol] 3.23 10*6/uL 4.2-5.4 [facility] Blood hemoglobin measurement (mass/volume)Ordered By: Jonathan Dillard on 02-28-2023 Hemoglobin (Bld) [Mass/Vol] 8.9 g/dL 12.0-15.0 [facility] Blood platelet mean volumeOr dered By: Jonathan Dillard on 02-28-2023 Platelet mean volume (Bld) [Entitic vol] 9.3 fL 6.2-12.0 [facility] Determination of erythrocyte mean corpuscular volume (MCV)Ordered By: Jonathan Dillard on 02-28-2023 MCV (RBC) [Entitic vol] 97.5 fL 81-99 [facility] Hematocrit Auto (Bld) [Volum e fraction]Ordered By: Jonathan Dillard on 02-28-2023 Hematocrit (Bld) [Volume fraction] 31.5 % 37-47 [facility] Laboratory - Chemistry and C hemistry - challengeOrdered By: Jonathan Dillard on 02-28-2023 CO2 [Moles/Vol] 41.0 mmol/L 21.0-32.0 [facility] Urea nitrogen/Creatinine [Mass ratio] 26.5 mg/mg 10-20 [facility] Laboratory - Hematology and Cell countsOrdered By: Jonathan Dillard on 02-28-2023 Erythrocyte distribution width (RBC) [Entitic vol] 51.0 fL 35.1-43.9 [facility] Erythrocyte distribution width (RBC) [Ratio] 14.2 % 11.6-14.6 [facility] MCH (RBC) [Entitic mass] 27.6 pg 27.0-32.0 [facility] MCHC Auto (RBC) [Mass/Vol]Or dered By: Jonathan Dillard on 02-28-2023 MCHC (RBC) [Mass/Vol] 28.3 g/dL 32-36 [facility] No Panel InformationOrdered By: Jonathan Dillard on 02-28-2023 Estimated GFR (MDRD) Amer 125 mL/min >60 [facility] Comment on above: GFR Calc Estimated GFR (MDRD) Non-Af Amer 104 mL/min >60 [facility] Comment on above: Non- GFR Calc Platelets bldOrdered By: Mervat Dillard on 02-28-2023 Platelets (Bld) [#/Vol] 130 10*3/uL 150-450 [facility] Serum or plasma calcium celina urement (mass/volume)Ordered By: Jonathan Dillard on 02-28-2023 Calcium [Mass/Vol] 8.9 mg/dL 8.5-10.1 [facility] Serum or plasma creatinine m easurement (mass/volume)Ordered By: Jonathan Dillard on 02-28-2023 Creatinine [Mass/Vol] 0.60 mg/dL 0.55-1.02 [facility] Comment on above: The validity of the calculated GFR & GFRAA in patients over 70 years has not been determined. Clinical correlation is essential. Serum or plasma urea nitroge n measurement (mass/volume)Ordered By: Jonathan Dillard on 02-28-2023 Urea nitrogen [Mass/Vol] 16 mg/dL 7-18 [facility] Thin prep Papanicolaou smear with manual screeningOrdered By: Jonathan Dillard on 02-28-2023 Thin prep Papanicolaou smear with manual screening -1 5-15 [facility] Absolute lymphocyte countOrd ered By: Dr. Jaime on 02-25-2023 Lymphocytes Auto (Unsp spec) [#/Vol] 0.74 10*3/uL 0.83-4.51 [facility] Basophil percentageOrdered B y: Dr. Jaime on 02-25-2023 Basophils/100 WBC (Bld) 0.2 % 0-1 [facility] Eosinophils/100 WBC (Bld) 1.2 % 0-5 [facility] Neutrophils (Bld) [#/Vol] 4.0 10*3/uL 2.0-7.7 [facility] Neutrophils/100 WBC (Bld) 79.1 % 47-70 [facility] WBC (Bld) [#/Vol] 5.1 10*3/uL 4.4-11.0 [facility] Bilirubin [Mass/Vol] 0.40 mg/dL 0.20-1.00 [facility] Comment on above: For patients on eltr ombopag therapy, use of Dimension [place] TBIL is not recommended. Chloride [Moles/Vol] 106 mmol/L 98-107 [facility] Glucose [Mass/Vol] 106 mg/dL 74-106 [facility] Comment on above: Fasting Glucose resu lt from 100 to 125 mg/dL suggests IMPAIRED HOMEOSTASIS per A.D.A. criteria. Potassium [Moles/Vol] 4.3 mmol/L 3.5-5.1 [facility] Protein [Mass/Vol] 7.1 g/dL 6.4-8.2 [facility] Sodium [Moles/Vol] 142 mmol/L 136-145 [facility] Blood erythrocytes count (nu mber/volume)Ordered By: Dr. Jaime on 02-25-2023 RBC (Bld) [#/Vol] 3.46 10*6/uL 4.2-5.4 [facility] Blood hemoglobin measurement (mass/volume)Ordered By: Dr. Jaime on 02-25-2023 Hemoglobin (Bld) [Mass/Vol] 9.5 g/dL 12.0-15.0 [facility] Blood lymphocytes/100 leukoc ytesOrdered By: Dr. Jaime on 02-25-2023 Lymphocytes/100 WBC (Bld) 14.7 % 19-41 [facility] Blood monocytes/100 leukocyt esOrdered By: Dr. Jaime on 02-25-2023 Monocytes/100 WBC (Bld) 4.4 % 0-10 [facility] Blood platelet mean volumeOr dered By: Dr. Jaime on 02-25-2023 Platelet mean volume (Bld) [Entitic vol] 8.7 fL 6.2-12.0 [facility] COVID-19 virus antigen assay Ordered By: Dr. Jaime on 02-25-2023 SARS-CoV-2 (COVID-19) Ag IA.rapid Ql (Resp) [facility] Determination of erythrocyte mean corpuscular volume (MCV)Ordered By: Dr. Jaime on 02-25-2023 MCV (RBC) [Entitic vol] 98.3 fL 81-99 [facility] Hematocrit Auto (Bld) [Volum e fraction]Ordered By: Dr. Jaime on 02-25-2023 Hematocrit (Bld) [Volume fraction] 34.0 % 37-47 [facility] Laboratory - Chemistry and C hemistry - challengeOrdered By: Dr. Jaime on 02-25-2023 ALP [Catalytic activity/Vol] 69 U/L 45-117 [facility] ALT [Catalytic activity/Vol] 23 U/L 13-56 [facility] CO2 [Moles/Vol] 34.0 mmol/L 21.0-32.0 [facility] Globulin (S) [Mass/Vol] 4.5 g/dL 2.2-4.2 [facility] Urea nitrogen/Creatinine [Mass ratio] 27.0 mg/mg 10-20 [facility] Laboratory - Hematology and Cell countsOrdered By: Dr. Jaime on 02-25-2023 Erythrocyte distribution width (RBC) [Entitic vol] 52.0 fL 35.1-43.9 [facility] Erythrocyte distribution width (RBC) [Ratio] 14.5 % 11.6-14.6 [facility] Immature granulocytes/100 WBC (Bld) 0.400 % 0.0-0.9 [facility] Comment on above: IG% - Immature Granu locytes (promyelocytes, myelocytes and metamyelocytes) > 1% indicates that a LEFT SHIFT is Present. MCH (RBC) [Entitic mass] 27.5 pg 27.0-32.0 [facility] Nucleated RBC/100 WBC (Bld) [Ratio] 0 % 0-5 [facility] Laboratory - Microbiology an d Antimicrobial susceptibilityOrdered By: Dr. Monique on 02-25-2023 Bacteria identified Cx Nom (Bld) No growth in 5 days. [facility] MCHC Auto (RBC) [Mass/Vol]Or dered By: Dr. Jaime on 02-25-2023 MCHC (RBC) [Mass/Vol] 27.9 g/dL 32-36 [facility] No Panel InformationOrdered By: Dr. Jaime on 02-25-2023 Estimated Creatinine Clearance Calc 53.04 ml/min [facility] Estimated GFR (MDRD) Amer 84 mL/min >60 [facility] Comment on above: GFR Calc Estimated GFR (MDRD) Non-Af Amer 69 mL/min >60 [facility] Comment on above: Non- GFR Calc Platelets bldOrdered By: Dr. Jaime on 02-25-2023 Platelets (Bld) [#/Vol] 146 10*3/uL 150-450 [facility] Serum or plasma albumin celina urement (mass/volume)Ordered By: Dr. Jaime on 02-25-2023 Albumin [Mass/Vol] 2.6 g/dL 3.2-5.0 [facility] Serum or plasma albumin/glob ulin mass ratioOrdered By: Dr. Jaime on 02-25-2023 Albumin/Globulin [Mass ratio] 0.6 {ratio} 0.9-2.4 [facility] Serum or plasma calcium celina urement (mass/volume)Ordered By: Dr. Jaime on 02-25-2023 Calcium [Mass/Vol] 8.7 mg/dL 8.5-10.1 [facility] Serum or plasma creatinine m easurement (mass/volume)Ordered By: Dr. Jaime on 02-25-2023 Creatinine [Mass/Vol] 0.85 mg/dL 0.55-1.02 [facility] Comment on above: The validity of the calculated GFR & GFRAA in patients over 70 years has not been determined. Clinical correlation is essential. Serum or plasma urea nitroge n measurement (mass/volume)Ordered By: Dr. Jaime on 02-25-2023 Urea nitrogen [Mass/Vol] 23 mg/dL 7-18 [facility] Thin prep Papanicolaou smear with manual screeningOrdered By: Dr. Jaime on 02-25-2023 Thin prep Papanicolaou smear with manual screening 20 U/L 15-37 [facility] Thin prep Papanicolaou smear with manual screening 2 5-15 [facility] Glucose Glucometer (BldC) [M ass/Vol]Ordered By: Dr. Jaime on 02-23-2023 Glucose [Mass/Vol] 136 mg/dL 74-106 [facility] Comment on above: MANAGEMENT OF PATIEN T CARE PER NURSING PROTOCOL Blood manual differential co mment interpretation (narrative result)Ordered By: Dr. Jaime on 02-22-2023 Manual differential comment Ajit (Bld) [Interp] SCANNED [facility] Comment on above: LYMPHOPENIA Clostridium difficile detect ion by polymerase chain reactionOrdered By: Dr. Banks on 02-22-2023 C. difficile DNA ISA+probe Ql (Unsp spec) [facility] Base excessOrdered By: Dr. Joshua greenfield on 02-21-2023 Base excess Calc (BldV) [Moles/Vol] 12 mmol/L -2-2 [facility] Basophil percentageOrdered B y: Dr. Jaime on 02-21-2023 Basophil percentage 36.1 mmol/L 22-26 [facility] Basophils/100 WBC (Bld) 98 % 95-99 [facility] Blood platelet adequacy dete ction by light microscopyOrdered By: Dr. Padron on 02-21-2023 Platelets LM Ql (Bld) SLT DEC ADEQ [facility] CO2 (BldA) [Partial pressure ]Ordered By: Dr. Jaime on 02-21-2023 CO2 (Bld) [Partial pressure] 52.0 mm[Hg] 35-45 [facility] Culture, urineOrdered By: Dr Che Monique on 02-21-2023 Bacteria identified Cx Nom (U) Culture exhibits no growth. [facility] No Panel InformationOrdered By: Dr. Jaime on 02-21-2023 Bedside Blood Gas PEEP 7 [facility] Bedside Blood Gas Pressure Support 7 [facility] Blood Gas Oxygen Percent 50 [facility] Blood Gas Sample Site R Brach [facility] Blood Gas Specimen Type ART [facility] Blood Gas Total CO2 38 mmol/L [facility] Blood Gas Vent Mode CPAP/PS [facility] Oxygen (BldA) [Partial press ure]Ordered By: Dr. Jaime on 02-21-2023 Oxygen (Bld) [Partial pressure] 99 mmHG 75-100 [facility] Review by pathologistOrdered By: Dr. Padron on 02-21-2023 Pathologist review Ajit (Unsp spec) [Interp] Reviewed [facility] Comment on above: Previous reported re sult: March bernarda Edited by: RGOOD on 02/23/23:1043Pancytopenia.Leukopenia Normocytic anemia.Mild ThrombocytopeniaClinical correlation necessary.Blas Carrillo M.D. 02/23/23 AMENDED REPORT 02/23/23 1043 PATH REV previously reported as: Uyen menchaca Vancomycin troughOrdered By: Dr. Padron on 02-21-2023 Vancomycin trough [Mass/Vol] 25.5 ug/mL 5.0-15.0 [facility] Comment on above: VANCOMYCIN STANDARED DRUG THERAPY TROUGH LEVEL: 5.0 - 15.0 mg/L VANCOMYCIN HIGH INTENSITY THERAPY TROUGH LEVEL: 15.0 - 20.0 mg/L High Intensity therapy recommended for serious lifethreatening infections include:- Lsloghsgnn-Iylbbgtkoule-Scksscyrr (Ventilator/Healtcare Associated)-Sepsis PLEASE CONTACT PHARMACY SERVICES (#[id number]) FOR INTERPRETATIONOF RESULTS. pH measurementOrdered By: Dr Che Jaime on 02-21-2023 pH (Unsp spec) 7.45 [pH] 7.35-7.45 [facility] Assessment of wrist artery p atency prior to arterial punctureOrdered By: Dr. Padron on 02-20-2023 Arterial patency Wrist artery --pre arterial puncture Positive [facility] Basophil percentageOrdered B y: Dr. Monique on 02-20-2023 Triglyceride [Mass/Vol] 141 mg/dL <199 [facility] Comment on above: The drugs N-Acetylcy steine and Metamizole may falsely depress this assay.Serum Triglycerides Reference Interval Normal <150 mg/dL Borderline high 150 - 199 mg/dL High 200 - 499 mg/dL Very High > or = 500 mg/dL Laboratory - Chemistry and C hemistry - challengeOrdered By: Dr. Monique on 02-20-2023 CK [Catalytic activity/Vol] 26 U/L 26-192 [facility] No Panel InformationOrdered By: Dr. Padron on 02-20-2023 Blood Gas Respiration Rate 15 [facility] Oxygen Delivery Device Adult Vent [facility] Basophil percentageOrdered B y: Dr. Padron on 02-19-2023 Basophil percentage 3.6 mg/dL 2.5-4.9 [facility] Laboratory - Chemistry and C hemistry - challengeOrdered By: Dr. Padron on 02-19-2023 Magnesium [Mass/Vol] 2.0 mg/dL 1.6-2.6 [facility] No Panel InformationOrdered By: Dr. Padron on 02-19-2023 Bld Gas Crit Called To/Read Back By Yes [facility] Blood Gas Notified Amanda MONIQUE [facility] Blood Gas Tidal Volume 325 [facility] Laboratory - Hematology and Cell countsOrdered By: Dr. Resendiz on 02-18-2023 Anisocytosis Ql (Bld) 1+ [facility] No Panel InformationOrdered By: Dr. Padron on 02-18-2023 Blood Gas Notified Time 1716 [facility] No Panel InformationOrdered By: Dr. Monique on 02-18-2023 Miscellaneous Test See comment [facility] Comment on above: TEST RESULT LIMITSRe [...] Detected Not Detected __ TESTING PERFORMED AT [facility]. ORIGINAL REPORT ON FILE IN LAB CONTAINS ADDITIONAL TEST SITE INFORMATION. No Panel InformationOrdered By: Dr. Resendiz on 02-18-2023 Thyroid Stimulating Hormone (TSH) 0.74 uIU/mL 0.358-3.74 [facility] Methicillin-Resist S.aureus DNA PCR Positive Negative [facility] Serum procalcitonin measurem entOrdered By: Dr. Resendiz on 02-18-2023 Procalcitonin [Mass/Vol] 0.13 ng/mL 0.00-0.09 [facility] Comment on above: A procalcitonin (PCT [...] Auto (Unsp spec) [#/Vol] 0.69 10*3/uL 0.83-4.51 [facility] Assessment of wrist artery p atency prior to arterial punctureOrdered By: Dr. Resendiz on 02-17-2023 Arterial patency Wrist artery --pre arterial puncture Positive [facility] Base excessOrdered By: Dr. Deepika hernandez on 02-17-2023 Base excess Calc (BldV) [Moles/Vol] 26 mmol/L -2-2 [facility] Basophil percentageOrdered B y: Dr. Resendiz on 02-17-2023 Basophil percentage 51.8 mmol/L 22-26 [facility] Basophils/100 WBC (Bld) 88 % 95-99 [facility] Basophil percentageOrdered B y: Dr. Tsai on 02-17-2023 Basophil percentage 0 SEEN /hpf 0-5 [facility] Basophils/100 WBC (Bld) 0.4 % 0-1 [facility] Bilirubin [Mass/Vol] 0.50 mg/dL 0.20-1.00 [facility] Comment on above: For patients on eltr ombopag therapy, use of Dimension [place] TBIL is not recommended. Chloride [Moles/Vol] 102 mmol/L 98-107 [facility] Eosinophils/100 WBC (Bld) 0.2 % 0-5 [facility] Glucose [Mass/Vol] 238 mg/dL 74-106 [facility] Comment on above: Glucose result great er than or equal to 200 mg/dLsuggests DIABETES MELLITUS per A.D.A. criteria. Neutrophils (Bld) [#/Vol] 9.1 10*3/uL 2.0-7.7 [facility] Neutrophils/100 WBC (Bld) 87.0 % 47-70 [facility] Potassium [Moles/Vol] 4.1 mmol/L 3.5-5.1 [facility] Protein [Mass/Vol] 7.6 g/dL 6.4-8.2 [facility] Sodium [Moles/Vol] 145 mmol/L 136-145 [facility] WBC (Bld) [#/Vol] 10.5 10*3/uL 4.4-11.0 [facility] Bilirubin Test strip Ql (U)O rdered By: Dr. Tsai on 02-17-2023 Bilirubin Ql (U) Negative Negative [facility] Blood erythrocytes count (nu mber/volume)Ordered By: Dr. Tsai on 02-17-2023 RBC (Bld) [#/Vol] 3.69 10*6/uL 4.2-5.4 [facility] Blood hemoglobin measurement (mass/volume)Ordered By: Dr. Tsai on 02-17-2023 Hemoglobin (Bld) [Mass/Vol] 10.1 g/dL 12.0-15.0 [facility] Blood lymphocytes/100 leukoc ytesOrdered By: Dr. Tsai on 02-17-2023 Lymphocytes/100 WBC (Bld) 6.6 % 19-41 [facility] Blood monocytes/100 leukocyt esOrdered By: Dr. Tsai on 02-17-2023 Monocytes/100 WBC (Bld) 3.6 % 0-10 [facility] Blood platelet mean volumeOr dered By: Dr. Tsai on 02-17-2023 Platelet mean volume (Bld) [Entitic vol] 8.4 fL 6.2-12.0 [facility] CO2 (BldA) [Partial pressure ]Ordered By: Dr. Resendiz on 02-17-2023 CO2 (Bld) [Partial pressure] 96.6 mm[Hg] 35-45 [facility] Determination of erythrocyte mean corpuscular volume (MCV)Ordered By: Dr. Tsai on 02-17-2023 MCV (RBC) [Entitic vol] 101.1 fL 81-99 [facility] Hematocrit Auto (Bld) [Volum e fraction]Ordered By: Dr. Tsai on 02-17-2023 Hematocrit (Bld) [Volume fraction] 37.3 % 37-47 [facility] Hyaline casts LM.LPF (Urine sed) [#/Area]Ordered By: Dr. Tsai on 02-17-2023 Hyaline casts (Urine sed) [#/Area] 0 /[LPF] 0-5 [facility] Ketones Test strip Ql (U)Ord ered By: Dr. Tsai on 02-17-2023 Ketones Ql (U) Negative Negative [facility] Laboratory - Chemistry and C hemistry - challengeOrdered By: Dr. Tsai on 02-17-2023 ALP [Catalytic activity/Vol] 99 U/L 45-117 [facility] ALT [Catalytic activity/Vol] 26 U/L 13-56 [facility] CO2 [Moles/Vol] 45.0 mmol/L 21.0-32.0 [facility] Globulin (S) [Mass/Vol] 4.7 g/dL 2.2-4.2 [facility] Urea nitrogen/Creatinine [Mass ratio] 36.2 mg/mg 10-20 [facility] Laboratory - Chemistry and C hemistry - challengeOrdered By: Dr. Resendiz on 02-17-2023 Natriuretic peptide B (Bld) [Mass/Vol] 132.9 pg/mL 0-100 [facility] Laboratory - Drug toxicology Ordered By: Dr. Tsai on 02-17-2023 Amphetamines Ql (U) Negative <1000 ng/mL [facility] Benzodiazepines Ql (U) Negative < 200 ng/mL [facility] Cannabinoids Screen Ql (U) Negative < 50 ng/mL [facility] Cocaine Ql (U) Negative < 300 ng/mL [facility] Opiates Ql (U) Negative < 300 ng/mL [facility] Laboratory - Hematology and Cell countsOrdered By: Dr. Tsai on 02-17-2023 Erythrocyte distribution width (RBC) [Entitic vol] 55.7 fL 35.1-43.9 [facility] Erythrocyte distribution width (RBC) [Ratio] 15.0 % 11.6-14.6 [facility] Immature granulocytes/100 WBC (Bld) 2.200 % 0.0-0.9 [facility] Comment on above: IG% - Immature Granu locytes (promyelocytes, myelocytes and metamyelocytes) > 1% indicates that a LEFT SHIFT is Present. MCH (RBC) [Entitic mass] 27.4 pg 27.0-32.0 [facility] Nucleated RBC/100 WBC (Bld) [Ratio] 0.2 % 0-5 [facility] MCHC Auto (RBC) [Mass/Vol]Or dered By: Dr. Tsai on 02-17-2023 MCHC (RBC) [Mass/Vol] 27.1 g/dL 32-36 [facility] Mucus LM Ql (Urine sed)Order ed By: Dr. Tsai on 02-17-2023 Mucus Ql (Urine sed) 0 SEEN /hpf [facility] Nitrite Test strip Ql (U)Ord ered By: Dr. Tsai on 02-17-2023 Nitrite Ql (U) Negative Negative [facility] No Panel InformationOrdered By: Dr. Resendiz on 02-17-2023 Bedside Blood Gas PEEP 5 [facility] Bld Gas Crit Called To/Read Back By Yes [facility] Blood Gas Notified Time 2245 [facility] Blood Gas Notified Whom ED [facility] Blood Gas Oxygen Percent 60 [facility] Blood Gas Respiration Rate 16 [facility] Blood Gas Sample Site L RADIAL [facility] Blood Gas Specimen Type ART [facility] Blood Gas Tidal Volume 450 [facility] Blood Gas Total CO2 > 50 mmol/L [facility] Blood Gas Vent Mode AC/VC [facility] Oxygen Delivery Device Vent [facility] No Panel InformationOrdered By: Dr. Tsai on 02-17-2023 Ethyl Alcohol Level < 3.0 mg/dL [facility] Comment on above: The serum:whole bloo d ethanol ratio is approximately 1.14and varies slightly with hematocrit. Medical Alcohol reference interval and critical value innon-tolerant individuals; 50 - 100 Impairment 100 Intoxication 100 - 250 Severe Poisoning 250 - 400 Deep/possible fatal coma MDMA (Ecstasy) Screen Negative < 500 ng/mL [facility] Urine Barbiturates Screen Negative < 200 ng/mL [facility] Urine Drug Screen Comment [facility] Comment on above: CONFIRMATORY TESTING FOR [...] Methadone Screen Negative < 300 ng/mL [facility] Estimated Creatinine Clearance Calc 45.09 ml/min [facility] Estimated GFR (MDRD) Amer 118 mL/min >60 [facility] Comment on above: GFR Calc Estimated GFR (MDRD) Non-Af Amer 98 mL/min >60 [facility] Comment on above: Non- GFR Calc Troponin I High Sensitivity 13 pg/mL 3.0-54.0 [facility] Comment on above: Please Note: New Rosalie t Units and Gender Specific Reference Ranges. For more information see Policy Stat Procedure [place] High Sensitivity Troponin (TNIH) and attachments. Oxygen (BldA) [Partial press ure]Ordered By: Dr. Resendiz on 02-17-2023 Oxygen (Bld) [Partial pressure] 64 mmHG 75-100 [facility] Platelets bldOrdered By: Dr. Tsai on 02-17-2023 Platelets (Bld) [#/Vol] 163 10*3/uL 150-450 [facility] Protein Test strip Ql (U)Ord ered By: Dr. Tsai on 02-17-2023 Protein Ql (U) 100 mg/dl Negative [facility] Serum or plasma albumin celina urement (mass/volume)Ordered By: Dr. Tsai on 02-17-2023 Albumin [Mass/Vol] 2.9 g/dL 3.2-5.0 [facility] Serum or plasma albumin/glob ulin mass ratioOrdered By: Dr. Tsai on 02-17-2023 Albumin/Globulin [Mass ratio] 0.6 {ratio} 0.9-2.4 [facility] Serum or plasma calcium celina urement (mass/volume)Ordered By: Dr. Tsai on 02-17-2023 Calcium [Mass/Vol] 8.9 mg/dL 8.5-10.1 [facility] Serum or plasma creatinine m easurement (mass/volume)Ordered By: Dr. Tsai on 02-17-2023 Creatinine [Mass/Vol] 0.64 mg/dL 0.55-1.02 [facility] Comment on above: The validity of the calculated GFR & GFRAA in patients over 70 years has not been determined. Clinical correlation is essential. Serum or plasma urea nitroge n measurement (mass/volume)Ordered By: Dr. Tsai on 02-17-2023 Urea nitrogen [Mass/Vol] 23 mg/dL 7-18 [facility] Squamous epithelial cells de tection in urine sediment by light microscopyOrdered By: Dr. Tsai on 02-17-2023 Epithelial cells.squamous LM Ql (Urine sed) 0-5 SEEN /hpf 5-10 [facility] Thin prep Papanicolaou smear with manual screeningOrdered By: Dr. Tsai on 02-17-2023 Thin prep Papanicolaou smear with manual screening 21 U/L 15-37 [facility] Thin prep Papanicolaou smear with manual screening -2 5-15 [facility] Urine blood detectionOrdered By: Dr. Tsai on 02-17-2023 RBC Ql (U) 25 /ul Negative [facility] RBC Ql (U) 0-5 SEEN /hpf 0-5 [facility] Urine clarityOrdered By: Dr. Tsai on 02-17-2023 Clarity (U) Sl. Cloudy Clear [facility] Urine coarse granular cast d etectionOrdered By: Dr. Tsai on 02-17-2023 Coarse Granular Casts LM Ql (Urine sed) 0-5 SEEN /lpf 0-5 /lpf [facility] Urine color determinationOrd ered By: Dr. Tsai on 02-17-2023 Color (U) Yellow Yellow [facility] Urine glucose detectionOrder ed By: Dr. Tsai on 02-17-2023 Glucose Ql (U) Normal mg/dl Normal [facility] Urine leukocyte esterase det ection by dipstickOrdered By: Dr. Tsai on 02-17-2023 Leukocyte esterase Test strip Ql (U) Negative Negative [facility] Urine pHOrdered By: Dr. Paul kohli on 02-17-2023 pH (U) 5.0 [pH] 5.0 - 8.0 [facility] Urine phencyclidine (PCP) de tectionOrdered By: Dr. Tsai on 02-17-2023 Phencyclidine Ql (U) Negative < 25 ng/mL [facility] Urine sediment bacteria coun t by microscopy (number/high power field)Ordered By: Dr. Tsai on 02-17-2023 Bacteria LM.HPF (Urine sed) [#/Area] 0 /[HPF] None Seen [facility] Urine specific gravity measu rementOrdered By: Dr. Tsai on 02-17-2023 Specific gravity (U) [Rel density] 1.030 1.002-1.030 [facility] Urobilinogen Auto test strip Ql (U)Ordered By: Dr. Tsai on 02-17-2023 Urobilinogen Ql (U) Normal mg/dl Normal [facility] pH measurementOrdered By: Dr Che Resendiz on 02-17-2023 pH (Unsp spec) 7.34 [pH] 7.35-7.45 [facility] No Panel InformationOrdered By: Jonathan Dillard on 02-07-2023 Miscellaneous Test See comment [facility] Comment on above: TEST RESULTS LIMITSS ARS-CoV-2, [id number], ISA Not Detected Not DetectedThis nucleic acid amplification test was developed and its performance characteristics determined by [employer]. Nucleic acid amplification tests include RT-PCR and [...] result in this assay. [facility]FOR[facility] ORIGINAL REPORT ON FILE IN LAB CONTAINS ADDITIONAL TEST SITE INFORMATION. Absolute lymphocyte countOrd ered By: Dr. Jeffries on 01-11-2023 Lymphocytes Auto (Unsp spec) [#/Vol] 0.59 10*3/uL 0.83-4.51 [facility] Basophil percentageOrdered B y: Dr. Jeffries on 01-11-2023 Basophils/100 WBC (Bld) 0.2 % 0-1 [facility] Bilirubin [Mass/Vol] 0.50 mg/dL 0.20-1.00 [facility] Comment on above: For patients on eltr ombopag therapy, use of Dimension [place] TBIL is not recommended. Chloride [Moles/Vol] 99 mmol/L 98-107 [facility] Eosinophils/100 WBC (Bld) 1.1 % 0-5 [facility] Glucose [Mass/Vol] 124 mg/dL 74-106 [facility] Comment on above: Fasting Glucose resu lt from 100 to 125 mg/dL suggests IMPAIRED HOMEOSTASIS per A.D.A. criteria. LDH [Catalytic activity/Vol] 147 U/L 84-246 [facility] Neutrophils (Bld) [#/Vol] 4.4 10*3/uL 2.0-7.7 [facility] Neutrophils/100 WBC (Bld) 81.5 % 47-70 [facility] Potassium [Moles/Vol] 4.2 mmol/L 3.5-5.1 [facility] Protein [Mass/Vol] 7.1 g/dL 6.4-8.2 [facility] Sodium [Moles/Vol] 146 mmol/L 136-145 [facility] WBC (Bld) [#/Vol] 5.4 10*3/uL 4.4-11.0 [facility] Blood erythrocytes count (nu mber/volume)Ordered By: Dr. Jeffries on 01-11-2023 RBC (Bld) [#/Vol] 3.43 10*6/uL 4.2-5.4 [facility] Blood hemoglobin measurement (mass/volume)Ordered By: Dr. Jeffries on 01-11-2023 Hemoglobin (Bld) [Mass/Vol] 9.7 g/dL 12.0-15.0 [facility] Blood lymphocytes/100 leukoc ytesOrdered By: Dr. Jeffries on 01-11-2023 Lymphocytes/100 WBC (Bld) 11.0 % 19-41 [facility] Blood manual differential co mment interpretation (narrative result)Ordered By: Dr. Jeffries on 01-11-2023 Manual differential comment Ajit (Bld) [Interp] SCANNED [facility] Blood monocytes/100 leukocyt esOrdered By: Dr. Jeffries on 01-11-2023 Monocytes/100 WBC (Bld) 5.6 % 0-10 [facility] Blood platelet mean volumeOr dered By: Dr. Jeffries on 01-11-2023 Platelet mean volume (Bld) [Entitic vol] 8.4 fL 6.2-12.0 [facility] Determination of erythrocyte mean corpuscular volume (MCV)Ordered By: Dr. Jeffries on 01-11-2023 MCV (RBC) [Entitic vol] 97.4 fL 81-99 [facility] Hematocrit Auto (Bld) [Volum e fraction]Ordered By: Dr. Jeffries on 01-11-2023 Hematocrit (Bld) [Volume fraction] 33.4 % 37-47 [facility] Hemoglobin in reticulocytes (mass per reticulocyte)Ordered By: Dr. Jeffries on 01-11-2023 Hemoglobin (Reticulocytes) [Entitic mass] 24.6 pg 30-35 [facility] Hypochromatic red blood cell detectionOrdered By: Dr. Jeffries on 01-11-2023 Hypochromia Ql (Bld) 2+ [facility] Iron measurement (mass/mass) Ordered By: Dr. Jeffries on 01-11-2023 Iron (Unsp spec) [Mass/Mass] 35 ug/dL 50-170 [facility] Laboratory - Chemistry and C hemistry - challengeOrdered By: Dr. Jeffries on 01-11-2023 ALP [Catalytic activity/Vol] 81 U/L 45-117 [facility] ALT [Catalytic activity/Vol] 15 U/L 13-56 [facility] CO2 [Moles/Vol] 43.0 mmol/L 21.0-32.0 [facility] Cobalamin (Vitamin B12) [Mass/Vol] 561 pg/mL 211-911 [facility] Globulin (S) [Mass/Vol] 3.9 g/dL 2.2-4.2 [facility] Urea nitrogen/Creatinine [Mass ratio] 22.3 mg/mg 10-20 [facility] Laboratory - Hematology and Cell countsOrdered By: Dr. Jeffries on 01-11-2023 Erythrocyte distribution width (RBC) [Entitic vol] 51.6 fL 35.1-43.9 [facility] Erythrocyte distribution width (RBC) [Ratio] 14.5 % 11.6-14.6 [facility] Immature granulocytes/100 WBC (Bld) 0.600 % 0.0-0.9 [facility] Comment on above: IG% - Immature Granu locytes (promyelocytes, myelocytes and metamyelocytes) > 1% indicates that a LEFT SHIFT is Present. MCH (RBC) [Entitic mass] 28.3 pg 27.0-32.0 [facility] Nucleated RBC/100 WBC (Bld) [Ratio] 0 % 0-5 [facility] MCHC Auto (RBC) [Mass/Vol]Or dered By: Dr. Jeffries on 01-11-2023 MCHC (RBC) [Mass/Vol] 29.0 g/dL 32-36 [facility] No Panel InformationOrdered By: Dr. Jeffries on 01-11-2023 Estimated GFR (MDRD) Amer 102 mL/min >60 [facility] Comment on above: GFR Calc Estimated GFR (MDRD) Non-Af Amer 85 mL/min >60 [facility] Comment on above: Non- GFR Calc Immature Platelet Fraction 1.3 % 1.0-7.9 [facility] Comment on above: Low PLT + Low IPF faust ggest a bone marrow production disorderLow PLT + high IPF suggests peripheral destruction(e.g.ITP, TTP, HIT, DIC, autoimmune) or bone marrow recoveryTrending of serial IPF measurements is recommended when evaluating for bone marrow responesValue above normal range indicates an increase in RBC cellular response from bone marrow. Immature Reticulocyte Fraction 23.00 % 3.00-15.90 [facility] Reticulocyte Count 2.53 % 0.5-1.5 [facility] Total Iron Binding Capacity 186 ug/dL 250-450 [facility] Platelets bldOrdered By: Dr. Jeffries on 01-11-2023 Platelets (Bld) [#/Vol] 138 10*3/uL 150-450 [facility] Serum or plasma albumin celina urement (mass/volume)Ordered By: Dr. Jeffries on 01-11-2023 Albumin [Mass/Vol] 3.2 g/dL 3.2-5.0 [facility] Serum or plasma albumin/glob ulin mass ratioOrdered By: Dr. Jeffries on 01-11-2023 Albumin/Globulin [Mass ratio] 0.8 {ratio} 0.9-2.4 [facility] Serum or plasma calcium celina urement (mass/volume)Ordered By: Dr. Jeffries on 01-11-2023 Calcium [Mass/Vol] 9.1 mg/dL 8.5-10.1 [facility] Serum or plasma creatinine m easurement (mass/volume)Ordered By: Dr. Jeffries on 01-11-2023 Creatinine [Mass/Vol] 0.72 mg/dL 0.55-1.02 [facility] Comment on above: The validity of the calculated GFR & GFRAA in patients over 70 years has not been determined. Clinical correlation is essential. Serum or plasma ferritin carter surement (mass/volume)Ordered By: Dr. Jeffries on 01-11-2023 Ferritin [Mass/Vol] 55 ng/mL 8-252 [facility] Serum or plasma folate measu rement (mass/volume)Ordered By: Dr. Jeffries on 01-11-2023 Folate [Mass/Vol] 73.30 ng/mL 3.1-55.4 [facility] Serum or plasma iron saturat ion measurement (mass fraction)Ordered By: Dr. Jeffries on 01-11-2023 Iron saturation [Mass fraction] 18.8 % 15.0-55.0 [facility] Serum or plasma urea nitroge n measurement (mass/volume)Ordered By: Dr. Jeffries on 01-11-2023 Urea nitrogen [Mass/Vol] 16 mg/dL 7-18 [facility] Thin prep Papanicolaou smear with manual screeningOrdered By: Dr. Jeffries on 01-11-2023 Thin prep Papanicolaou smear with manual screening 14 U/L 15-37 [facility] Thin prep Papanicolaou smear with manual screening 4 5-15 [facility] Progress Noteon 11-02-2022 Progress Note Obese [...] pancytopenia. Of note she states she saw private investigator 6 years ago and underwent a bone [...] Stable, follow-up with surgery as discussed Normal [facility] Basophil percentageOrdered B y: Stef Villegas on 11-01-2022 WBC (Bld) [#/Vol] 4.9 10*3/uL 4.4-11.0 [facility] Blood erythrocytes count (nu mber/volume)Ordered By: Stef Villegas on 11-01-2022 RBC (Bld) [#/Vol] 3.26 10*6/uL 4.2-5.4 [facility] Blood hemoglobin measurement (mass/volume)Ordered By: Stef Villegas on 11-01-2022 Hemoglobin (Bld) [Mass/Vol] 8.9 g/dL 12.0-15.0 [facility] Blood platelet mean volumeOr dered By: Stef Villegas on 11-01-2022 Platelet mean volume (Bld) [Entitic vol] 10.0 fL 6.2-12.0 [facility] Determination of erythrocyte mean corpuscular volume (MCV)Ordered By: Stef Villegas on 11-01-2022 MCV (RBC) [Entitic vol] 96.0 fL 81-99 [facility] Hematocrit Auto (Bld) [Volum e fraction]Ordered By: Stef Villegas on 11-01-2022 Hematocrit (Bld) [Volume fraction] 31.3 % 37-47 [facility] Iron measurement (mass/mass) Ordered By: Stef Villegas on 11-01-2022 Iron (Unsp spec) [Mass/Mass] 29 ug/dL 50-170 [facility] Laboratory - Chemistry and C hemistry - challengeOrdered By: Stef Villegas on 11-01-2022 Cobalamin (Vitamin B12) [Mass/Vol] 208 pg/mL 211-911 [facility] Laboratory - Hematology and Cell countsOrdered By: Stef Villegas on 11-01-2022 Erythrocyte distribution width (RBC) [Entitic vol] 49.5 fL 35.1-43.9 [facility] Erythrocyte distribution width (RBC) [Ratio] 14.2 % 11.6-14.6 [facility] MCH (RBC) [Entitic mass] 27.3 pg 27.0-32.0 [facility] MCHC Auto (RBC) [Mass/Vol]Or dered By: Stef Villegas on 11-01-2022 MCHC (RBC) [Mass/Vol] 28.4 g/dL 32-36 [facility] No Panel InformationOrdered By: Stef Villegas on 11-01-2022 Total Iron Binding Capacity 212 ug/dL 250-450 [facility] Platelets bldOrdered By: Elida Villegas on 11-01-2022 Platelets (Bld) [#/Vol] 94 10*3/uL 150-450 [facility] Comment on above: PREVIOUS RESULTS <10 0. Serum or plasma ferritin carter surement (mass/volume)Ordered By: Stef Villegas on 11-01-2022 Ferritin [Mass/Vol] 45 ng/mL 8-252 [facility] Serum or plasma folate measu rement (mass/volume)Ordered By: Stef Bakari on 11-01-2022 Folate [Mass/Vol] 6.00 ng/mL 3.1-55.4 [facility] Serum or plasma iron saturat ion measurement (mass fraction)Ordered By: Stef Bakari on 11-01-2022 Iron saturation [Mass fraction] 13.7 % 15.0-55.0 [facility] CT SPINE CERVICAL W/O CONTRA STon [...] 10/30/2022 12:08:00 PM Ordering Provider: TRACE MATTHEWS [facility] ([place]) Progress Noteon 10-20-2022 Progress Note Well-controlled hypertensive [...] discussed discharge status with nursing and social insurance administrator is looking into assisted living facility placement in the near future. Normal [facility] XR SPINE CERVICAL AP/LAT/FLE X/EXTon 10-06-2022 XR [...] Sign Date: 10/06/2022 11:46:14 AM Ordering Provider: [facility]) XR SPINE THORACIC 2 VIEWSon 10-06-2022 XR [...] Sign Date: 10/06/2022 11:47:34 AM Ordering Provider: [facility]) Basophil percentageon 2021 Basophil percentage 0 SEEN /hpf 0-5 [facility] Phone: Bilirubin Test strip Ql (U)o n 10-05-2022 Bilirubin Ql (U) Negative Negative [facility] Work Phone: Ketones Test strip Ql (U)on 10-05-2022 Ketones Ql (U) Negative Negative [facility] Work Phone: Mucus LM Ql (Urine sed)on Mucus Ql (Urine sed) 0 SEEN /hpf [facility] Work Phone: Nitrite Test strip Ql (U)on 10-05-2022 Nitrite Ql (U) Negative Negative [facility] Work Phone: Protein Test strip Ql (U)on 10-05-2022 Protein Ql (U) Negative Negative [facility] Work Phone: Squamous epithelial cells de tection in urine sediment by light microscopyon 10-05-2022 Epithelial cells.squamous LM Ql (Urine sed) 0 SEEN /hpf 5-10 [facility] Work Phone: Urine blood detectionon 09-15 RBC Ql (U) Negative Negative [facility] Work Phone: RBC Ql (U) 0 SEEN /hpf 0-5 [facility] Work Phone: Urine clarityon 10-05-2022 Clarity (U) Clear Clear [facility] Work Phone: Urine color determinationon 10-05-2022 Color (U) Yellow Yellow [facility] Work Phone: Urine glucose detectionon Glucose Ql (U) Normal mg/dl Normal [facility] Work Phone: Urine leukocyte esterase det ection by dipstickon 10-05-2022 Leukocyte esterase Test strip Ql (U) Negative Negative [facility] Work Phone: Urine pHon 10-05-2022 pH (U) 7.0 [pH] 5.0 - 8.0 [facility] Work Phone: Urine sediment bacteria coun t by microscopy (number/high power field)on 10-05-2022 Bacteria LM.HPF (Urine sed) [#/Area] 0 /[HPF] None Seen [facility] Work Phone: Urine specific gravity measu rementon 10-05-2022 Specific gravity (U) [Rel density] 1.010 1.002-1.030 [facility] Work Phone: Urobilinogen Auto test strip Ql (U)on 10-05-2022 Urobilinogen Ql (U) Normal mg/dl Normal [facility] Work Phone: Absolute lymphocyte counton 09-29-2022 Lymphocytes Auto (Unsp spec) [#/Vol] 0.69 10*3/uL 0.83-4.51 [facility] Work Phone: Basophil percentageon 2021 Basophils/100 WBC (Bld) 0.3 % 0-1 [facility] Work Phone: Eosinophils/100 WBC (Bld) 2.1 % 0-5 [facility] Work Phone: Neutrophils (Bld) [#/Vol] 2.3 10*3/uL 2.0-7.7 [facility] Work Phone: Neutrophils/100 WBC (Bld) 69.9 % 47-70 [facility] Work Phone: WBC (Bld) [#/Vol] 3.3 10*3/uL 4.4-11.0 [facility] Work Phone: Blood erythrocytes count (nu mber/volume)on 09-29-2022 RBC (Bld) [#/Vol] 3.17 10*6/uL 4.2-5.4 [facility] Work Phone: Blood hemoglobin measurement (mass/volume)on 09-29-2022 Hemoglobin (Bld) [Mass/Vol] 8.8 g/dL 12.0-15.0 [facility] Work Phone: Blood lymphocytes/100 leukoc yteson 09-29-2022 Lymphocytes/100 WBC (Bld) 21.0 % 19-41 [facility] Work Phone: Blood monocytes/100 leukocyt eson 09-29-2022 Monocytes/100 WBC (Bld) 6.1 % 0-10 [facility] Work Phone: Blood platelet mean volumeon 09-29-2022 Platelet mean volume (Bld) [Entitic vol] 10.0 fL 6.2-12.0 [facility] Work Phone: Determination of erythrocyte mean corpuscular volume (MCV)on 09-29-2022 MCV (RBC) [Entitic vol] 97.2 fL 81-99 [facility] Work Phone: Hematocrit Auto (Bld) [Volum e fraction]on 09-29-2022 Hematocrit (Bld) [Volume fraction] 30.8 % 37-47 [facility] Work Phone: Laboratory - Hematology and Cell countson 09-29-2022 Erythrocyte distribution width (RBC) [Entitic vol] 49.7 fL 35.1-43.9 [facility] Work Phone: Erythrocyte distribution width (RBC) [Ratio] 14.0 % 11.6-14.6 [facility] Work Phone: Immature granulocytes/100 WBC (Bld) 0.600 % 0.0-0.9 [facility] Work Phone: Comment on above: IG% - Immature Granu locytes (promyelocytes, myelocytes and metamyelocytes) > 1% indicates that a LEFT SHIFT is Present. MCH (RBC) [Entitic mass] 27.8 pg 27.0-32.0 [facility] Work Phone: [phone] Nucleated RBC/100 WBC (Bld) [Ratio] 0.9 % 0-5 [facility] Work Phone: [phone] MCHC Auto (RBC) [Mass/Vol]on 09-29-2022 MCHC (RBC) [Mass/Vol] 28.6 g/dL 32-36 [facility] Work Phone: Platelets bldon 09-29-2022 Platelets (Bld) [#/Vol] 83 10*3/uL 150-450 [facility] Work Phone: Basophil percentageon 2021 Basophil percentage 5-10 SEEN /hpf 0-5 [facility] Work Phone: Bilirubin Test strip Ql (U)o n 09-08-2022 Bilirubin Ql (U) Negative Negative [facility] Work Phone: Ketones Test strip Ql (U)on 09-08-2022 Ketones Ql (U) Negative Negative [facility] Work Phone: Mucus LM Ql (Urine sed)on Mucus Ql (Urine sed) 1+ /hpf [facility] Work Phone: Nitrite Test strip Ql (U)on 09-08-2022 Nitrite Ql (U) Positive Negative [facility] Work Phone: Protein Test strip Ql (U)on 09-08-2022 Protein Ql (U) Negative Negative [facility] Work Phone: Squamous epithelial cells de tection in urine sediment by light microscopyon 09-08-2022 Epithelial cells.squamous LM Ql (Urine sed) 0-5 SEEN /hpf 5-10 [facility] Work Phone: Urine blood detectionon 08-15 RBC Ql (U) 10 /ul Negative [facility] Work Phone: RBC Ql (U) 0-5 SEEN /hpf 0-5 [facility] Work Phone: Urine clarityon 09-08-2022 Clarity (U) Sl. Cloudy Clear [facility] Work Phone: Urine color determinationon 09-08-2022 Color (U) Yellow Yellow [facility] Work Phone: Urine glucose detectionon Glucose Ql (U) Normal mg/dl Normal [facility] Work Phone: Urine leukocyte esterase det ection by dipstickon 09-08-2022 Leukocyte esterase Test strip Ql (U) 500 /ul Negative [facility] Work Phone: Urine pHon 09-08-2022 pH (U) 6.5 [pH] 5.0 - 8.0 [facility] Work Phone: Urine sediment bacteria coun t by microscopy (number/high power field)on 09-08-2022 Bacteria LM.HPF (Urine sed) [#/Area] 2 /[HPF] None Seen [facility] Work Phone: Urine specific gravity measu rementon 09-08-2022 Specific gravity (U) [Rel density] 1.010 1.002-1.030 [facility] Work Phone: Urobilinogen Auto test strip Ql (U)on 09-08-2022 Urobilinogen Ql (U) Normal mg/dl Normal [facility] Work Phone: [phone] Absolute lymphocyte counton 09-01-2022 Lymphocytes Auto (Unsp spec) [#/Vol] 0.68 10*3/uL 0.83-4.51 [facility] Work Phone: Basophil percentageon 2021 Basophils/100 WBC (Bld) 0.3 % 0-1 [facility] Work Phone: Bilirubin [Mass/Vol] 0.50 mg/dL 0.20-1.00 [facility] Work Phone: Comment on above: For patients on eltr ombopag therapy, use of Dimension [place] TBIL is not recommended. Chloride [Moles/Vol] 106 mmol/L 98-107 [facility] Work Phone: Eosinophils/100 WBC (Bld) 1.5 % 0-5 [facility] Work Phone: Glucose [Mass/Vol] 86 mg/dL 74-106 [facility] Work Phone: Neutrophils (Bld) [#/Vol] 2.4 10*3/uL 2.0-7.7 [facility] Work Phone: Neutrophils/100 WBC (Bld) 71.9 % 47-70 [facility] Work Phone: [phone] Potassium [Moles/Vol] 3.9 mmol/L 3.5-5.1 [facility] Work Phone: Protein [Mass/Vol] 6.4 g/dL 6.4-8.2 [facility] Work Phone: Sodium [Moles/Vol] 147 mmol/L 136-145 [facility] Work Phone: WBC (Bld) [#/Vol] 3.4 10*3/uL 4.4-11.0 [facility] Work Phone: Blood erythrocytes count (nu mber/volume)on 09-01-2022 RBC (Bld) [#/Vol] 2.97 10*6/uL 4.2-5.4 [facility] Work Phone: Blood hemoglobin measurement (mass/volume)on 09-01-2022 Hemoglobin (Bld) [Mass/Vol] 8.6 g/dL 12.0-15.0 [facility] Work Phone: Blood lymphocytes/100 leukoc yteson 09-01-2022 Lymphocytes/100 WBC (Bld) 20.3 % 19-41 [facility] Work Phone: Blood monocytes/100 leukocyt eson 09-01-2022 Monocytes/100 WBC (Bld) 5.7 % 0-10 [facility] Work Phone: Blood platelet adequacy dete ction by light microscopyon 09-01-2022 Platelets LM Ql (Bld) MOD DEC ADEQ [facility] Work Phone: Blood platelet mean volumeon 09-01-2022 Platelet mean volume (Bld) [Entitic vol] 9.3 fL 6.2-12.0 [facility] Work Phone: Determination of erythrocyte mean corpuscular volume (MCV)on 09-01-2022 MCV (RBC) [Entitic vol] 97.6 fL 81-99 [facility] Work Phone: Hematocrit Auto (Bld) [Volum e fraction]on 09-01-2022 Hematocrit (Bld) [Volume fraction] 29.0 % 37-47 [facility] Work Phone: Laboratory - Chemistry and C hemistry - challengeon 09-01-2022 ALP [Catalytic activity/Vol] 65 U/L 45-117 [facility] Work Phone: ALT [Catalytic activity/Vol] 19 U/L 13-56 [facility] Work Phone: CO2 [Moles/Vol] 40.0 mmol/L 21.0-32.0 [facility] Work Phone: Globulin (S) [Mass/Vol] 3.4 g/dL 2.2-4.2 [facility] Work Phone: Urea nitrogen/Creatinine [Mass ratio] 21.1 mg/mg 10-20 [facility] Work Phone: Laboratory - Hematology and Cell countson 09-01-2022 Erythrocyte distribution width (RBC) [Entitic vol] 49.0 fL 35.1-43.9 [facility] Work Phone: Erythrocyte distribution width (RBC) [Ratio] 13.7 % 11.6-14.6 [facility] Work Phone: Immature granulocytes/100 WBC (Bld) 0.300 % 0.0-0.9 [facility] Work Phone: Comment on above: IG% - Immature Granu locytes (promyelocytes, myelocytes and metamyelocytes) > 1% indicates that a LEFT SHIFT is Present. MCH (RBC) [Entitic mass] 29.0 pg 27.0-32.0 [facility] Work Phone: Nucleated RBC/100 WBC (Bld) [Ratio] 0 % 0-5 [facility] Work Phone: MCHC Auto (RBC) [Mass/Vol]on 09-01-2022 MCHC (RBC) [Mass/Vol] 29.7 g/dL 32-36 [facility] Work Phone: No Panel Informationon 09-01 Estimated GFR (MDRD) Amer 112 mL/min >60 [facility] Work Phone: Comment on above: GFR Calc Estimated GFR (MDRD) Non-Af Amer 93 mL/min >60 [facility] Work Phone: Comment on above: Non- GFR Calc Thyroid Stimulating Hormone (TSH) 2.06 uIU/mL 0.358-3.74 [facility] Work Phone: Platelets bldon 09-01-2022 Platelets (Bld) [#/Vol] 99 10*3/uL 150-450 [facility] Work Phone: RBC morphologyon 09-01-2022 RBC morphology finding Nom (Bld) NORM C+C NORMAL NORM C&C [facility] Work Phone: Serum or plasma albumin celina urement (mass/volume)on 09-01-2022 Albumin [Mass/Vol] 3.0 g/dL 3.2-5.0 [facility] Work Phone: Serum or plasma albumin/glob ulin mass ratioon 09-01-2022 Albumin/Globulin [Mass ratio] 0.9 {ratio} 0.9-2.4 [facility] Work Phone: Serum or plasma calcium celina urement (mass/volume)on 09-01-2022 Calcium [Mass/Vol] 8.8 mg/dL 8.5-10.1 [facility] Work Phone: Serum or plasma creatinine m easurement (mass/volume)on 09-01-2022 Creatinine [Mass/Vol] 0.66 mg/dL 0.55-1.02 [facility] Work Phone: Comment on above: The validity of the calculated GFR & GFRAA in patients over 70 years has not been determined. Clinical correlation is essential. Serum or plasma urea nitroge n measurement (mass/volume)on 09-01-2022 Urea nitrogen [Mass/Vol] 14 mg/dL 7-18 [facility] Work Phone: Thin prep Papanicolaou smear with manual screeningon 09-01-2022 Thin prep Papanicolaou smear with manual screening 21 U/L 15-37 [facility] Work Phone: Thin prep Papanicolaou smear with manual screening 1 5-15 [facility] Work Phone: Absolute lymphocyte counton 08-26-2022 Lymphocytes Auto (Unsp spec) [#/Vol] 0.68 10*3/uL 0.83-4.51 [facility] Work Phone: Basophil percentageon 2021 Basophils/100 WBC (Bld) 0.2 % 0-1 [facility] Work Phone: Eosinophils/100 WBC (Bld) 1.2 % 0-5 [facility] Work Phone: Neutrophils (Bld) [#/Vol] 3.0 10*3/uL 2.0-7.7 [facility] Work Phone: Neutrophils/100 WBC (Bld) 74.7 % 47-70 [facility] Work Phone: WBC (Bld) [#/Vol] 4.0 10*3/uL 4.4-11.0 [facility] Work Phone: Blood erythrocytes count (nu mber/volume)on 08-26-2022 RBC (Bld) [#/Vol] 2.88 10*6/uL 4.2-5.4 [facility] Work Phone: [phone] Blood hemoglobin measurement (mass/volume)on 08-26-2022 Hemoglobin (Bld) [Mass/Vol] 8.5 g/dL 12.0-15.0 [facility] Work Phone: Blood lymphocytes/100 leukoc yteson 08-26-2022 Lymphocytes/100 WBC (Bld) 17.0 % 19-41 [facility] Work Phone: Blood monocytes/100 leukocyt eson 08-26-2022 Monocytes/100 WBC (Bld) 6.7 % 0-10 [facility] Work Phone: Blood platelet mean volumeon 08-26-2022 Platelet mean volume (Bld) [Entitic vol] 9.3 fL 6.2-12.0 [facility] Work Phone: Determination of erythrocyte mean corpuscular volume (MCV)on 08-26-2022 MCV (RBC) [Entitic vol] 101.0 fL 81-99 [facility] Work Phone: [phone] Hematocrit Auto (Bld) [Volum e fraction]on 08-26-2022 Hematocrit (Bld) [Volume fraction] 29.1 % 37-47 [facility] Work Phone: Laboratory - Hematology and Cell countson 08-26-2022 Erythrocyte distribution width (RBC) [Entitic vol] 50.9 fL 35.1-43.9 [facility] Work Phone: [phone] Erythrocyte distribution width (RBC) [Ratio] 13.8 % 11.6-14.6 [facility] Work Phone: [phone] Immature granulocytes/100 WBC (Bld) 0.200 % 0.0-0.9 [facility] Work Phone: Comment on above: IG% - Immature Granu locytes (promyelocytes, myelocytes and metamyelocytes) > 1% indicates that a LEFT SHIFT is Present. MCH (RBC) [Entitic mass] 29.5 pg 27.0-32.0 [facility] Work Phone: Nucleated RBC/100 WBC (Bld) [Ratio] 0 % 0-5 [facility] Work Phone: [phone] MCHC Auto (RBC) [Mass/Vol]on 08-26-2022 MCHC (RBC) [Mass/Vol] 29.2 g/dL 32-36 [facility] Work Phone: Platelets bldon 08-26-2022 Platelets (Bld) [#/Vol] 105 10*3/uL 150-450 [facility] Work Phone: Basophil percentageon 2021 Chloride [Moles/Vol] 99 mmol/L 98-107 [facility] Work Phone: Cholesterol [Mass/Vol] 149 mg/dL <200 [facility] Work Phone: Comment on above: <200 mg/dL Desirable 200-240 mg/dL Borderline >240 mg/dL High Risk Glucose [Mass/Vol] 148 mg/dL 74-106 [facility] Work Phone: Comment on above: Fasting Glucose resu lt greater than or equal to 126 mg/dL suggests DIABETES MELLITUS per A.D.A. criteria. Potassium [Moles/Vol] 4.2 mmol/L 3.5-5.1 [facility] Work Phone: Sodium [Moles/Vol] 141 mmol/L 136-145 [facility] Work Phone: Triglyceride [Mass/Vol] 188 mg/dL <199 [facility] Work Phone: Comment on above: The drugs N-Acetylcy steine and Metamizole may falsely depress this assay.Serum Triglycerides Reference Interval Normal <150 mg/dL Borderline high 150 - 199 mg/dL High 200 - 499 mg/dL Very High > or = 500 mg/dL WBC (Bld) [#/Vol] 4.8 10*3/uL 4.4-11.0 [facility] Work Phone: Blood erythrocytes count (nu mber/volume)on 08-02-2022 RBC (Bld) [#/Vol] 2.91 10*6/uL 4.2-5.4 [facility] Work Phone: Blood hemoglobin measurement (mass/volume)on 08-02-2022 Hemoglobin (Bld) [Mass/Vol] 8.6 g/dL 12.0-15.0 [facility] Work Phone: Blood platelet mean volumeon 08-02-2022 Platelet mean volume (Bld) [Entitic vol] 9.1 fL 6.2-12.0 [facility] Work Phone: Determination of erythrocyte mean corpuscular volume (MCV)on 08-02-2022 MCV (RBC) [Entitic vol] 102.4 fL 81-99 [facility] Work Phone: Hematocrit Auto (Bld) [Volum e fraction]on 08-02-2022 Hematocrit (Bld) [Volume fraction] 29.8 % 37-47 [facility] Work Phone: Iron measurement (mass/mass) on 08-02-2022 Iron (Unsp spec) [Mass/Mass] 43 ug/dL 50-170 [facility] Work Phone: Laboratory - Chemistry and C hemistry - challengeon 08-02-2022 Albumin [Mass/Vol] 3.3 g/dL 2.9-4.4 [facility] Work Phone: CO2 [Moles/Vol] 39.0 mmol/L 21.0-32.0 [facility] Work Phone: Cobalamin (Vitamin B12) [Mass/Vol] 350 pg/mL 211-911 [facility] Work Phone: Urea nitrogen/Creatinine [Mass ratio] 26.8 mg/mg 10-20 [facility] Work Phone: Laboratory - Hematology and Cell countson 08-02-2022 Erythrocyte distribution width (RBC) [Entitic vol] 52.6 fL 35.1-43.9 [facility] Work Phone: Erythrocyte distribution width (RBC) [Ratio] 14.2 % 11.6-14.6 [facility] Work Phone: MCH (RBC) [Entitic mass] 29.6 pg 27.0-32.0 [facility] Work Phone: MCHC Auto (RBC) [Mass/Vol]on 08-02-2022 MCHC (RBC) [Mass/Vol] 28.9 g/dL 32-36 [facility] Work Phone: No Panel Informationon 08-02 Addendum Document Comment . [facility] Work Phone: Comment on above: The SPE pattern appe ars unremarkable. Evidence ofmonoclonal protein is not apparent.Performed at: [address] [id number] Director: Mark Woo PhD, Phone: [phone] Ibfmr-1-Vlfjryyck 0.3 g/dL 0.0-0.4 [facility] Work Phone: Wnvty-6-Rontybspe 0.9 g/dL 0.4-1.0 [facility] Work Phone: Estimated GFR (MDRD) Amer 104 mL/min >60 [facility] Work Phone: Comment on above: GFR Calc Estimated GFR (MDRD) Non-Af Amer 86 mL/min >60 [facility] Work Phone: Comment on above: Non- GFR Calc Gamma Globulins 0.9 g/dL 0.4-1.8 [facility] Work Phone: Thyroid Stimulating Hormone (TSH) 1.91 uIU/mL 0.358-3.74 [facility] Work Phone: Total Iron Binding Capacity 268 ug/dL 250-450 [facility] Work Phone: Platelets bldon 08-02-2022 Platelets (Bld) [#/Vol] 120 10*3/uL 150-450 [facility] Work Phone: Protein Fractions Elph [Inte rp]on 08-02-2022 Protein Fractions [Interp] Comment . [facility] Work Phone: Comment on above: Protein electrophore sis scan will follow via computer,mail, or endless belt finisher delivery. Serum albumin to globulin ra amairani by protein electrophoresison 08-02-2022 Albumin/Globulin Elph [Mass ratio] 1.0 0.7-1.7 [facility] Work Phone: Serum globulin measurement ( mass/volume)on 08-02-2022 Globulin (S) [Mass/Vol] 3.2 g/dL 2.2-3.9 [facility] Work Phone: Serum or plasma beta globuli n measurement by electrophoresis (mass/volume)on 08-02-2022 Beta globulin Elph [Mass/Vol] 1.0 g/dL 0.7-1.3 [facility] Work Phone: Serum or plasma calcium celina urement (mass/volume)on 08-02-2022 Calcium [Mass/Vol] 9.0 mg/dL 8.5-10.1 [facility] Work Phone: Serum or plasma cholesterol in HDL measurement (mass/volume)on 08-02-2022 Cholesterol in HDL [Mass/Vol] 53 mg/dL >40 [facility] Work Phone: Comment on above: The drugs N-Acetylcy steine and Metamizole may falsely depress this assay. Reference Range HDL <40 mg/dL Low HDL Cholesterol HDL >or= 60 mg/dL High HDL Cholesterol Serum or plasma cholesterol in VLDL measurement (mass/volume)on 08-02-2022 Cholesterol in VLDL [Mass/Vol] 38 mg/dL 5-40 [facility] Work Phone: Serum or plasma creatinine m easurement (mass/volume)on 08-02-2022 Creatinine [Mass/Vol] 0.71 mg/dL 0.55-1.02 [facility] Work Phone: Comment on above: The validity of the calculated GFR & GFRAA in patients over 70 years has not been determined. Clinical correlation is essential. Serum or plasma iron saturat ion measurement (mass fraction)on 08-02-2022 Iron saturation [Mass fraction] 16.0 % 15.0-55.0 [facility] Work Phone: Serum or plasma low density lipoprotein (LDL) cholesterol measurement (mass/volume)on 08-02-2022 Cholesterol in LDL [Mass/Vol] 58 mg/dL 0-130 [facility] Work Phone: Serum or plasma urea nitroge n measurement (mass/volume)on 08-02-2022 Urea nitrogen [Mass/Vol] 19 mg/dL 7-18 [facility] Work Phone: Thin prep Papanicolaou smear with manual screeningon 08-02-2022 Thin prep Papanicolaou smear with manual screening 3 5-15 [facility] Work Phone: Thin prep Papanicolaou smear with manual screening See comment [facility] Work Phone: Comment on above: Result: Not Observed Total protein bloodon 2021 Protein [Mass/Vol] 6.5 g/dL 6.0-8.5 [facility] Work Phone: Whole blood hemoglobin A1c/t otal hemoglobin ratio (mass fraction)on 08-02-2022 HbA1c (Bld) [Mass fraction] 5.7 % 3.8-5.6 [facility] Work Phone: Comment on above: Normal < 5.7 % Predi abetic 5.7 - 6.4 % Diabetic >or= 6.5 % Please note range changes. LABORATORYOrdered By: Chelsy Kay on 07-27-2022 Blood Glucose Testing Reason Routine (07/27/22 9:16 AM) [facility] Work Phone: Glucose [Mass/Vol] 177 mg/dL Invalid Interpretation Code 82 - 115 mg/dL [facility] Work Phone: LABORATORYOrdered By: Caitie Roman [...] Comment on above: Result Comment: [place] [id number] FLUBV RNA ISA+probe Ql (Resp) Negative 8 (07/27/22 9:01 AM) Invalid Interpretation Code Negative Auto Viro/Sero SS Comment on above: Result Comment: [place] [id number] Hospitalized Yes (07/27/22 9:01 AM) Invalid Interpretation [...] Glucose Testing Reason Routine (07/26/22 10:22 PM) [facility] Work Phone: Glucose [Mass/Vol] 176 mg/dL Invalid Interpretation Code 82 - 115 mg/dL [facility] Work Phone: Blood Glucose Testing Reason Routine (07/26/22 5:08 PM) [facility] Work Phone: Glucose [Mass/Vol] 232 mg/dL Invalid Interpretation Code 82 - 115 mg/dL [facility] Work Phone: LABORATORYOrdered By: Marcelina Freeman on 07-25-2022 Blood Glucose Interventions Administered agent to decrease blood sugar (07/25/22 4:57 PM) [facility] Work Phone: Blood Glucose Interventions Administered agent to decrease blood sugar (07/25/22 12:59 PM) [facility] Work Phone: LABORATORYOrdered By: Luana Bliss on 07-24-2022 Blood Glucose Interventions Administered agent to decrease blood sugar (07/24/22 1:00 PM) [facility] Work Phone: LABORATORYOrdered By: Poli Torres [...] Ertapenem TATO [Susc] >100,000 cfu/ml Escherichia coli [facility] Work Phone: Ertapenem TATO [Susc]on 07-12 Escherichia coli Escherichia coli [facility] Work Phone: LABORATORYOrdered By: Dana Lucero [...] Invalid Interpretation Code 82 - 115 mg/dL [facility] Work Phone: LABORATORYOrdered By: Triston Nicholson [...] CNCOon 11-30-2021 CNCO Letter Text Normal [facility] LABORATORYOrdered By: Dori Frances on [...] Former smoker Tobacco Use Screening; Status:Complete; Done: [id number] Perform:Not Applicable;Ordered; For:SocHx: Former smoker; Ordered By:Jenniffer [...] mixing and drinking quickly. This product is [id number]. Additionally take MiraLAX as needed for constipation. [...] ultrasound of the liver History of Present [id number] female spoken to over telephone referred for [...] History of Colonoscopy APR. 2013- DONE IN [place]- NORMAL History of Esophagogastroduodenoscop y APPROX- 2013- IN [place]- NORMAL History of Knee arthroscopy History of [...] identified Cx Nom (U) Presumptive E. coli [facility] Work Phone: Bacteria identified Cx Nom (U) Positive [facility] Work Phone: Vital Signs Date Time Vital Sign Value Performing Clinician Facility 10-31-2023 11:16-0500 Body height 165.1 cm Elida Rafaume DOCUMENTATION ENGINEER-FITTER WELDER Work Phone: [facility] 10-31-2023 11:16-0500 Body mass index (BMI) [Ratio] 26.79 kg/m2 Elida Blume DOCUMENTATION ENGINEER-FITTER WELDER Work Phone: [facility] 10-31-2023 11:16-0500 Body weight 73.03 kg Elida Blume DOCUMENTATION ENGINEER-FITTER WELDER Work Phone: [facility] 10-31-2023 11:16-0500 Diastolic blood pressure 61 mm[Hg] Elida Blume DOCUMENTATION ENGINEER-FITTER WELDER Work Phone: [facility] 10-31-2023 11:16-0500 Heart rate 84 /min Elida Blume DOCUMENTATION ENGINEER-FITTER WELDER Work Phone: [facility] 10-31-2023 11:16-0500 SaO2% (BldA) [Mass fraction] 97 % Elida Blume DOCUMENTATION ENGINEER-FITTER WELDER Work Phone: [facility] 10-31-2023 11:16-0500 Systolic blood pressure 94 mm[Hg] Elida Blume DOCUMENTATION ENGINEER-FITTER WELDER Work Phone: [facility] 10-17-2023 11:20-0500 Body height 165.1 cm Varsha Sotelo MD Work Phone: [facility] 10-17-2023 11:20-0500 Body mass index (BMI) [Ratio] 26.88 kg/m2 Varsha Sotelo MD Work Phone: [facility] 10-17-2023 11:20-0500 Body temperature 97.7 [degF] Varsha Sotelo MD Work Phone: [facility] 10-17-2023 11:20-0500 Body weight 73.26 kg Varsha Sotelo MD Work Phone: [facility] 10-17-2023 11:20-0500 Diastolic blood pressure 54 mm[Hg] Varsha Sotelo MD Work Phone: [facility] 10-17-2023 11:20-0500 Heart rate 74 /min Varsha Sotelo MD Work Phone: [facility] 10-17-2023 11:20-0500 Systolic blood pressure 94 mm[Hg] Varsha Sotelo MD Work Phone: [facility] 09-28-2023 09:24-0500 Body temperature 97.9 [degF] Velvet Jerez DO Work Phone: [facility] 09-28-2023 09:24-0500 Diastolic blood pressure 70 mm[Hg] Velvet Landon-yler DO Work Phone: [facility] 09-28-2023 09:24-0500 Heart rate 91 /min Velvet Landon-yler DO Work Phone: [facility] 09-28-2023 09:24-0500 Respiratory rate 16 /min Velvet Landon-Seyler DO Work Phone: [facility] 09-28-2023 09:24-0500 SaO2% (BldA) [Mass fraction] 99 % Velvet Landon-Seyler DO Work Phone: [facility] 09-28-2023 09:24-0500 Systolic blood pressure 111 mm[Hg] Velvet Landon-Seyler DO Work Phone: [facility] 09-19-2023 16:37-0500 Body temperature 37.0 Velvet Landon-Seyler DO Work Phone: [facility] 09-19-2023 16:37-0500 SaO2% (BldA) [Mass fraction] 99 % Velvet Landon-Seyler DO Work Phone: [facility] 09-19-2023 14:04-0500 Body temperature 37.0 degrees Celsius [facility] Comment on above: Order Comment: While on baseline/ home l evel of oxygen Result Comment: NOTE : Patient Results are Not Corrected for Temperature Performed By: #### 6 00-7 #### BEVERLEY Poe ([id number]) [facility] ([facility]) [address] [place] [address] 09-19-2023 14:04-0500 SaO2% (BldA) [Mass fraction] 99 % [facility] Comment on above: Order Comment: While on baseline/ home l evel of oxygen Performed By: #### 6 00-7 #### BEVERLEY JU Poe ([id number]) [facility] ([facility]) [address] [place] [address] 09-15-2023 18:44-0400 Body height 165.1 cm Velvet Jerez DO Work Phone: [facility] 09-15-2023 18:44-0400 Body mass index (BMI) [Ratio] 27.46 kg/m2 Velvet Jerez DO Work Phone: [facility] 09-15-2023 18:44-0400 Body weight 74.84 kg Velvet Jerez DO Work Phone: [facility] 09-15-2023 16:54-0400 Diastolic blood pressure 60 mm[Hg] Dr. Jonathan Dillard Sr. Work Phone: [facility] 09-15-2023 16:54-0400 Heart rate 88 /min Dr. Jonathan Dillard Sr. Work Phone: [facility] 09-15-2023 16:54-0400 Inhaled oxygen flow rate 3 L/min Dr. Jonathan Dillard Sr. Work Phone: [facility] 09-15-2023 16:54-0400 Respiratory rate 18 /min Dr. Jonathan Dillard Sr. Work Phone: [facility] 09-15-2023 16:54-0400 SaO2% (BldA) [Mass fraction] 100 % Dr. Jonathan Dillard Sr. Work Phone: [facility] 09-15-2023 16:54-0400 Systolic blood pressure 115 mm[Hg] Dr. Jonathan Dillard Sr. Work Phone: [facility] 09-15-2023 16:30-0400 Body temperature 97.8 [degF] Dr. Jonathan Dillard Sr. Work Phone: [facility] 09-14-2023 22:45-0400 Body height 165.[address] Jonathan Dillard Sr. Work Phone: [facility] 09-14-2023 22:45-0400 Body mass index (BMI) [Ratio] 29 kg/m2 Dr. Jonathan Dillard Sr. Work Phone: [facility] 09-14-2023 22:45-0400 Body weight 79.[address] Jonathan Dillard Sr. Work Phone: [facility] 09-08-2023 10:18-0400 Body mass index (BMI) [Ratio] 27.6 kg/m2 Dr. Jonathan Dillard Sr. Work Phone: [facility] 09-08-2023 10:18-0400 Body temperature 97.7 [degF] Dr. Jonathan Dillard Sr. Work Phone: [facility] 09-08-2023 10:18-0400 Body weight 75.[address] Jonathan Dillard Sr. Work Phone: [facility] 09-08-2023 10:18-0400 Diastolic blood pressure 55 mm[Hg] Dr. Jonathan Dillard Sr. Work Phone: [facility] 09-08-2023 10:18-0400 Heart rate 97 /min Dr. Jonathan Dillard Sr. Work Phone: [facility] 09-08-2023 10:18-0400 Inhaled oxygen flow rate 1 L/min Dr. Jonathan Dillard Sr. Work Phone: [facility] 09-08-2023 10:18-0400 Respiratory rate 18 /min Dr. Jonathan Dillard Sr. Work Phone: [facility] 09-08-2023 10:18-0400 SaO2% (BldA) [Mass fraction] 95 % Dr. Jonathan Dillard Sr. Work Phone: [facility] 09-08-2023 10:18-0400 Systolic blood pressure 99 mm[Hg] Dr. Jonathan Dillard Sr. Work Phone: [facility] 08-15-2023 11:54-0400 Diastolic Blood Pressure Non-Invasive [address] MARK JEREZ MD [facility] 08-15-2023 11:54-0400 Heart rate 91 /min DR MARK JEREZ MD [facility] 08-15-2023 11:54-0400 Respiratory rate 23 /min DR MARK JEREZ MD [facility] 08-15-2023 11:54-0400 Systolic Blood Pressure Non-Invasive [address] MARK JEREZ MD [facility] 08-15-2023 11:41-0400 Diastolic Blood Pressure Non-Invasive [address] MARK JEREZ MD [facility] 08-15-2023 11:41-0400 Heart rate 98 /min DR MARK JEREZ MD [facility] 08-15-2023 11:41-0400 Respiratory rate 19 /min DR MARK JEREZ MD [facility] 08-15-2023 11:41-0400 Systolic Blood Pressure Non-Invasive [address] MARK JEREZ MD [facility] 08-15-2023 11:25-0400 Body temperature 97.52 [degF] DR MARK JEREZ MD [facility] 08-15-2023 11:25-0400 Diastolic Blood Pressure Non-Invasive [address] MARK JEREZ MD [facility] 08-15-2023 11:25-0400 Heart rate 97 /min DR MARK JEREZ MD [facility] 08-15-2023 11:25-0400 Respiratory rate 24 /min DR MARK JEREZ MD [facility] 08-15-2023 11:25-0400 Systolic Blood Pressure Non-Invasive [address] MARK JEREZ MD [facility] 08-15-2023 11:15-0400 Respiratory Rate - Anes 25 br/min DR MARK JEREZ MD [facility] 08-15-2023 11:10-0400 Respiratory Rate - Anes 26 br/min DR MARK JEREZ MD [facility] 08-15-2023 11:05-0400 Respiratory Rate - Anes 9 br/min DR MARK JEREZ MD [facility] 08-15-2023 10:290400 Body height [address] MARK JEREZ MD [facility] 08-15-2023 10:29-0400 Body weight [address] MARK JEREZ MD [facility] 08-15-2023 10:290400 Body weight 34.89 kg/m2 DR MARK JEREZ MD [facility] 08-15-2023 10:190400 Body height [address] MARK JEREZ MD [facility] 08-15-2023 10:190400 Body temperature 98.06 [degF] DR MARK JEREZ MD [facility] 08-15-2023 10:190400 Body weight [address] MARK JEREZ MD [facility] 08-15-2023 10:19-0400 Heart rate 87 /min DR MARK JEREZ MD [facility] 08-10-2023 03:47-0400 Diastolic blood pressure 62 mm[Hg] [facility] 08-10-2023 03:47-0400 Heart rate 89 /min [facility] 03:47-0400 Respiratory rate 18 /min [facility] 08-10-2023 03:47-0400 SaO2% (BldA) [Mass fraction] 95 % Jonathan [facility] 08-10-2023 03:47-0400 Systolic blood pressure 108 mm[Hg] Jonathan [facility] 08-09-2023 22:56-0400 Body height 165.1 cm Jonathan [facility] 08-09-2023 22:56-0400 Body mass index (BMI) [Ratio] 29.3 kg/m2 Jonathan [facility] 08-09-2023 22:56-0400 Body temperature 98.9 [degF] Jonathan [facility] 08-09-2023 22:56-0400 Body weight 80.1 kg Jonathan [facility] 08-09-2023 22:56-0400 Inhaled oxygen flow rate 2 L/min MD Castillo [facility] 07-14-2023 19:07-0400 Diastolic blood pressure 43 mm[Hg] AUDIOMETRIC TECHNICIAN-Andrea Carlisle AUDIOMETRIC TECHNICIAN Work Phone: [facility] 07-14-2023 19:07-0400 Heart rate 92 /min AUDIOMETRIC TECHNICIAN-Andrea Carlisle AUDIOMETRIC TECHNICIAN Work Phone: [facility] 07-14-2023 19:07-0400 Respiratory rate 17 /min AUDIOMETRIC TECHNICIAN-Andrea [place] AUDIOMETRIC TECHNICIAN Work Phone: [facility] 07-14-2023 19:07-0400 SaO2% (BldA) [Mass fraction] 98 % AUDIOMETRIC TECHNICIAN-C Barber Carlisle AUDIOMETRIC TECHNICIAN Work Phone: [facility] 07-14-2023 19:07-0400 Systolic blood pressure 104 mm[Hg] AUDIOMETRIC TECHNICIAN-C Barber Carlisle AUDIOMETRIC TECHNICIAN Work Phone: [facility] 07-14-2023 17:25-0400 Inhaled oxygen flow rate 1.5 L/min AUDIOMETRIC TECHNICIAN-C Barber Carlisle AUDIOMETRIC TECHNICIAN Work Phone: [facility] 07-14-2023 15:23-0400 Body mass index (BMI) [Ratio] 29.3 kg/m2 AUDIOMETRIC TECHNICIAN-C Barber Carlisle AUDIOMETRIC TECHNICIAN Work Phone: [facility] 07-14-2023 15:23-0400 Body weight 80 kg AUDIOMETRIC TECHNICIAN-C Barber Carlisle AUDIOMETRIC TECHNICIAN Work Phone: [facility] 07-14-2023 15:15-0400 Body height 165.1 cm AUDIOMETRIC TECHNICIAN-C Barber Carlisle AUDIOMETRIC TECHNICIAN Work Phone: [facility] 07-14-2023 15:15-0400 Body temperature 97.4 [degF] AUDIOMETRIC TECHNICIAN-C Barber Carlisle AUDIOMETRIC TECHNICIAN Work Phone: [facility] 05-04-2023 14:31-0400 Body height 165.1 cm AUDIOMETRIC TECHNICIAN-C Barber Carlisle AUDIOMETRIC TECHNICIAN Work Phone: [facility] 05-04-2023 14:31-0400 Body mass index (BMI) [Ratio] 30.1 kg/m2 AUDIOMETRIC TECHNICIAN-C Barber Carlisle AUDIOMETRIC TECHNICIAN Work Phone: [facility] 05-04-2023 14:31-0400 Body temperature 98.4 [degF] AUDIOMETRIC TECHNICIAN-C Barber Carlisle AUDIOMETRIC TECHNICIAN Work Phone: [facility] 05-04-2023 14:31-0400 Body weight 82.1 kg AUDIOMETRIC TECHNICIAN-C Barber Carlisle AUDIOMETRIC TECHNICIAN Work Phone: [facility] 05-04-2023 14:31-0400 Diastolic blood pressure 63 mm[Hg] AUDIOMETRIC TECHNICIAN-C Barber Carlisle AUDIOMETRIC TECHNICIAN Work Phone: [facility] 05-04-2023 14:31-0400 Heart rate 78 /min AUDIOMETRIC TECHNICIAN-C Barber Carlisle AUDIOMETRIC TECHNICIAN Work Phone: [facility] 05-04-2023 14:31-0400 Inhaled oxygen flow rate 1 L/min AUDIOMETRIC TECHNICIAN-C Barber Carlisle AUDIOMETRIC TECHNICIAN Work Phone: [facility] 05-04-2023 14:31-0400 Respiratory rate 15 /min AUDIOMETRIC TECHNICIAN-C Barber Carlisle AUDIOMETRIC TECHNICIAN Work Phone: [facility] 05-04-2023 14:31-0400 SaO2% (BldA) [Mass fraction] 96 % AUDIOMETRIC TECHNICIAN-C Barber Carlisle AUDIOMETRIC TECHNICIAN Work Phone: [facility] 05-04-2023 14:31-0400 Systolic blood pressure 103 mm[Hg] AUDIOMETRIC TECHNICIAN-C Barber Carlisle AUDIOMETRIC TECHNICIAN Work Phone: [facility] 04-19-2023 22:11-0400 Diastolic blood pressure 67 mm[Hg] AUDIOMETRIC TECHNICIAN-C Barber Carlisle AUDIOMETRIC TECHNICIAN Work Phone: [facility] 04-19-2023 22:11-0400 Respiratory rate 17 /min AUDIOMETRIC TECHNICIAN-C Barber Carlisle AUDIOMETRIC TECHNICIAN Work Phone: [facility] 04-19-2023 22:11-0400 SaO2% (BldA) [Mass fraction] 100 % AUDIOMETRIC TECHNICIAN-C Barber Carlisle AUDIOMETRIC TECHNICIAN Work Phone: [facility] 04-19-2023 22:11-0400 Systolic blood pressure 121 mm[Hg] AUDIOMETRIC TECHNICIAN-C Barber Carlisle AUDIOMETRIC TECHNICIAN Work Phone: [facility] 04-19-2023 20:00-0400 Body temperature 97.5 [degF] AUDIOMETRIC TECHNICIAN-C Barber Carlisle AUDIOMETRIC TECHNICIAN Work Phone: [facility] 04-19-2023 20:00-0400 Heart rate 88 /min AUDIOMETRIC TECHNICIAN-C Barber Carlisle AUDIOMETRIC TECHNICIAN Work Phone: [facility] 04-19-2023 20:00-0400 Inhaled oxygen flow rate 2 L/min AUDIOMETRIC TECHNICIAN-C Barber Carlisle AUDIOMETRIC TECHNICIAN Work Phone: [facility] 04-19-2023 16:41-0400 Body height 165.1 cm AUDIOMETRIC TECHNICIAN-C Barber Carlisle AUDIOMETRIC TECHNICIAN Work Phone: [facility] 04-19-2023 16:41-0400 Body mass index (BMI) [Ratio] 31.8 kg/m2 AUDIOMETRIC TECHNICIAN-C Barber Carlisle AUDIOMETRIC TECHNICIAN Work Phone: [facility] 04-19-2023 16:41-0400 Body weight 86.9 kg AUDIOMETRIC TECHNICIAN-C Barber Carlisle AUDIOMETRIC TECHNICIAN Work Phone: [facility] 04-04-2023 14:11-0400 Body temperature 97.4 [degF] AUDIOMETRIC TECHNICIAN-C Barber Carlisle AUDIOMETRIC TECHNICIAN Work Phone: [facility] 04-04-2023 14:11-0400 Diastolic blood pressure 66 mm[Hg] AUDIOMETRIC TECHNICIAN-C Barber Carlisle AUDIOMETRIC TECHNICIAN Work Phone: [facility] 04-04-2023 14:11-0400 Heart rate 76 /min AUDIOMETRIC TECHNICIAN-C Barber Carlisle AUDIOMETRIC TECHNICIAN Work Phone: [facility] 04-04-2023 14:11-0400 Respiratory rate 18 /min AUDIOMETRIC TECHNICIAN-C Barber Carlisle AUDIOMETRIC TECHNICIAN Work Phone: [facility] 04-04-2023 14:11-0400 SaO2% (BldA) [Mass fraction] 97 % AUDIOMETRIC TECHNICIAN-C Barber Carlisle AUDIOMETRIC TECHNICIAN Work Phone: [facility] 04-04-2023 14:11-0400 Systolic blood pressure 124 mm[Hg] AUDIOMETRIC TECHNICIAN-C Barber Carlisle AUDIOMETRIC TECHNICIAN Work Phone: [facility] 03-23-2023 14:35-0400 Body height 165.1 cm AUDIOMETRIC TECHNICIAN-C Barber Carlisle AUDIOMETRIC TECHNICIAN Work Phone: [facility] 03-23-2023 14:35-0400 Body temperature 98.2 [degF] AUDIOMETRIC TECHNICIAN-C Barber Carlisle AUDIOMETRIC TECHNICIAN Work Phone: [facility] 03-23-2023 14:35-0400 Diastolic blood pressure 65 mm[Hg] AUDIOMETRIC TECHNICIAN-C Barber Carlisle AUDIOMETRIC TECHNICIAN Work Phone: [facility] 03-23-2023 14:35-0400 Heart rate 80 /min AUDIOMETRIC TECHNICIAN-C Barber Solisson AUDIOMETRIC TECHNICIAN Work Phone: [facility] 03-23-2023 14:35-0400 Respiratory rate 16 /min AUDIOMETRIC TECHNICIAN-C Barber Solisson AUDIOMETRIC TECHNICIAN Work Phone: [facility] 03-23-2023 14:35-0400 SaO2% (BldA) [Mass fraction] 99 % AUDIOMETRIC TECHNICIAN-C Barber Carlisle AUDIOMETRIC TECHNICIAN Work Phone: [facility] 03-23-2023 14:35-0400 Systolic blood pressure 100 mm[Hg] AUDIOMETRIC TECHNICIAN-C Barber Solisson AUDIOMETRIC TECHNICIAN Work Phone: [facility] 03-09-2023 15:29-0400 Body temperature 98.2 [degF] AUDIOMETRIC TECHNICIAN-C Barber Solisson AUDIOMETRIC TECHNICIAN Work Phone: [facility] 03-09-2023 15:29-0400 Diastolic blood pressure 63 mm[Hg] AUDIOMETRIC TECHNICIAN-C Barber Carlisle AUDIOMETRIC TECHNICIAN Work Phone: [facility] 03-09-2023 15:29-0400 Heart rate 89 /min AUDIOMETRIC TECHNICIAN-C Barber Solisson AUDIOMETRIC TECHNICIAN Work Phone: [facility] 03-09-2023 15:29-0400 SaO2% (BldA) [Mass fraction] 96 % AUDIOMETRIC TECHNICIAN-C Barber Solisson AUDIOMETRIC TECHNICIAN Work Phone: [facility] 03-09-2023 15:29-0400 Systolic blood pressure 117 mm[Hg] AUDIOMETRIC TECHNICIAN-C Barber Solisson AUDIOMETRIC TECHNICIAN Work Phone: [facility] 03-09-2023 15:26-0400 Body height 165.1 cm AUDIOMETRIC TECHNICIAN-C Barber Solisson AUDIOMETRIC TECHNICIAN Work Phone: [facility] 02-25-2023 13:27-0400 Heart rate 89 /min AUDIOMETRIC TECHNICIAN-C Barber Carlisle AUDIOMETRIC TECHNICIAN Work Phone: [facility] 02-25-2023 13:27-0400 Respiratory rate 20 /min AUDIOMETRIC TECHNICIAN-C Barber Carlisle AUDIOMETRIC TECHNICIAN Work Phone: [facility] 02-25-2023 11:49-0400 Body temperature 97.3 [degF] AUDIOMETRIC TECHNICIAN-C Barber Carlisle AUDIOMETRIC TECHNICIAN Work Phone: [facility] 02-25-2023 11:49-0400 Diastolic blood pressure 44 mm[Hg] AUDIOMETRIC TECHNICIAN-C Barber Carlisle AUDIOMETRIC TECHNICIAN Work Phone: [facility] 02-25-2023 11:49-0400 Inhaled oxygen flow rate 1 L/min AUDIOMETRIC TECHNICIAN-C Barber Carlisle AUDIOMETRIC TECHNICIAN Work Phone: [facility] 02-25-2023 11:49-0400 SaO2% (BldA) [Mass fraction] 98 % AUDIOMETRIC TECHNICIAN-C Barber Carlisle AUDIOMETRIC TECHNICIAN Work Phone: [facility] 02-25-2023 11:49-0400 Systolic blood pressure 103 mm[Hg] AUDIOMETRIC TECHNICIAN-C Barber Carlisle AUDIOMETRIC TECHNICIAN Work Phone: [facility] 02-25-2023 06:00-0400 Body mass index (BMI) [Ratio] 30.1 kg/m2 AUDIOMETRIC TECHNICIAN-C Barber Carlisle AUDIOMETRIC TECHNICIAN Work Phone: [facility] 02-25-2023 06:00-0400 Body weight 82.2 kg AUDIOMETRIC TECHNICIAN-C Barber Carlisle AUDIOMETRIC TECHNICIAN Work Phone: [facility] 02-21-2023 13:46-0400 Body height 165.1 cm AUDIOMETRIC TECHNICIAN-C Barber Carlisle AUDIOMETRIC TECHNICIAN Work Phone: [facility] 02-21-2023 07:00-0400 Inhaled oxygen concentration 50 % AUDIOMETRIC TECHNICIAN-C Barber Carlisle AUDIOMETRIC TECHNICIAN Work Phone: [facility] 02-18-2023 00:46-0400 Body temperature 96 [degF] AUDIOMETRIC TECHNICIAN-C Barber Carlisle AUDIOMETRIC TECHNICIAN Work Phone: [facility] 02-18-2023 00:46-0400 Diastolic blood pressure 65 mm[Hg] AUDIOMETRIC TECHNICIAN-C Barber Carlisle AUDIOMETRIC TECHNICIAN Work Phone: [facility] 02-18-2023 00:46-0400 Heart rate 70 /min AUDIOMETRIC TECHNICIAN-C Barber Carlisle AUDIOMETRIC TECHNICIAN Work Phone: [facility] 02-18-2023 00:46-0400 Respiratory rate 18 /min AUDIOMETRIC TECHNICIAN-C Barber Carlisle AUDIOMETRIC TECHNICIAN Work Phone: [facility] 02-18-2023 00:46-0400 SaO2% (BldA) [Mass fraction] 100 % AUDIOMETRIC TECHNICIAN-C Barber Carlisle AUDIOMETRIC TECHNICIAN Work Phone: [facility] 02-18-2023 00:46-0400 Systolic blood pressure 103 mm[Hg] AUDIOMETRIC TECHNICIAN-C Barber Carlisle AUDIOMETRIC TECHNICIAN Work Phone: [facility] 02-17-2023 22:25-0400 Inhaled oxygen concentration 100 % AUDIOMETRIC TECHNICIAN-C Barber Carlisle AUDIOMETRIC TECHNICIAN Work Phone: [facility] 02-17-2023 22:17-0400 Body height 165.1 cm AUDIOMETRIC TECHNICIAN-C Barber Carlisle AUDIOMETRIC TECHNICIAN Work Phone: [facility] 02-17-2023 22:17-0400 Body mass index (BMI) [Ratio] 33.8 kg/m2 AUDIOMETRIC TECHNICIAN-C Barber Carlisle AUDIOMETRIC TECHNICIAN Work Phone: [facility] 02-17-2023 22:17-0400 Body weight 92.3 kg AUDIOMETRIC TECHNICIAN-C Barber Carlisle AUDIOMETRIC TECHNICIAN Work Phone: [facility] 01-11-2023 13:49-0500 Body mass index (BMI) [Ratio] 32.5 kg/m2 AUDIOMETRIC TECHNICIAN-C Barber Carlisle AUDIOMETRIC TECHNICIAN Work Phone: [facility] 01-11-2023 13:49-0500 Body temperature 98.5 [degF] AUDIOMETRIC TECHNICIAN-C Barber Carlisle AUDIOMETRIC TECHNICIAN Work Phone: [facility] 01-11-2023 13:49-0500 Body weight 88.45 kg AUDIOMETRIC TECHNICIAN-C Barber Carlisle AUDIOMETRIC TECHNICIAN Work Phone: [facility] 01-11-2023 13:49-0500 Diastolic blood pressure 71 mm[Hg] AUDIOMETRIC TECHNICIAN-C Barber Carlisle AUDIOMETRIC TECHNICIAN Work Phone: [facility] 01-11-2023 13:49-0500 Heart rate 82 /min AUDIOMETRIC TECHNICIAN-C Barber Carlisle AUDIOMETRIC TECHNICIAN Work Phone: [facility] 01-11-2023 13:49-0500 Respiratory rate 17 /min AUDIOMETRIC TECHNICIAN-C Barber Carlisle AUDIOMETRIC TECHNICIAN Work Phone: [facility] 01-11-2023 13:49-0500 SaO2% (BldA) [Mass fraction] 98 % AUDIOMETRIC TECHNICIAN-C Barber Carlisle AUDIOMETRIC TECHNICIAN Work Phone: [facility] 01-11-2023 13:49-0500 Systolic blood pressure 110 mm[Hg] AUDIOMETRIC TECHNICIAN-C Barber Carlisle AUDIOMETRIC TECHNICIAN Work Phone: [facility] 11-11-2022 10:49-0500 Body height 165 cm AUDIOMETRIC TECHNICIAN-C Barber Carlisle AUDIOMETRIC TECHNICIAN Work Phone: [facility] Work Phone: 11-11-2022 10:35-0500 Body mass index (BMI) [Ratio] 31.9 kg/m2 AUDIOMETRIC TECHNICIAN-C Barber Carlisle AUDIOMETRIC TECHNICIAN Work Phone: [facility] 11-11-2022 10:35-0500 Body temperature 98 [degF] AUDIOMETRIC TECHNICIAN-C Barber Carlisle AUDIOMETRIC TECHNICIAN Work Phone: [facility] 11-11-2022 10:35-0500 Body weight 87.08 kg AUDIOMETRIC TECHNICIAN-C Barber Carlisle AUDIOMETRIC TECHNICIAN Work Phone: [facility] 11-11-2022 10:35-0500 Diastolic blood pressure 70 mm[Hg] AUDIOMETRIC TECHNICIAN-C Barber Carlisle AUDIOMETRIC TECHNICIAN Work Phone: [facility] 11-11-2022 10:35-0500 Heart rate 82 /min AUDIOMETRIC TECHNICIAN-C Barber Carlisle AUDIOMETRIC TECHNICIAN Work Phone: [facility] 11-11-2022 10:35-0500 Respiratory rate 18 /min AUDIOMETRIC TECHNICIAN-C Barber Carlisle AUDIOMETRIC TECHNICIAN Work Phone: [facility] 11-11-2022 10:35-0500 SaO2% (BldA) [Mass fraction] 91 % AUDIOMETRIC TECHNICIAN-C Barber Lorethan AUDIOMETRIC TECHNICIAN Work Phone: [facility] 11-11-2022 10:35-0500 Systolic blood pressure 115 mm[Hg] AUDIOMETRIC TECHNICIAN-C Barber Carlisle AUDIOMETRIC TECHNICIAN Work Phone: [facility] 07-27-2022 09:29-0400 Heart rate 93 /min DR TRACE MATTHEWS MD [address] 07-27-2022 09:13-0400 Body temperature 96.8 [degF] DR TRACE MATTHEWS MD [address] [place] [id number] 07-27-2022 09:13-0400 Diastolic Blood Pressure NBP [address] TRACE MATTHEWS MD [address] [place] [address] 07-27-2022 09:13-0400 Heart rate 99 /min DR TRACE MATTHEWS MD [address] 07-27-2022 09:13-0400 Mean blood pressure 83 mm[Hg] DR TRACE MATTHEWS MD [address] [place] [id number] 07-27-2022 09:13-0400 Reason For Taking VItal Signs DR TRACE MATTHEWS MD [address] [place] [address] 07-27-2022 09:13-0400 Systolic Blood Pressure NBP [address] TRACE MATTHEWS MD [address] [place] [address] 07-27-2022 04:38-0400 Body temperature 97.7 [degF] DR TRACE MATTHEWS MD [address] [place] [id number] 07-27-2022 04:38-0400 Diastolic Blood Pressure NBP [address] TRACE MATTHEWS MD [address] 07-27-2022 04:38-0400 Heart rate 79 /min DR TRACE MATTHEWS MD [address] [place] [address] 07-27-2022 04:38-0400 Mean blood pressure 75 mm[Hg] DR TRACE MATTHEWS MD [address] [place] [address] 07-27-2022 04:38-0400 Reason For Taking VItal Signs DR TRACE MATTHEWS MD [address] [place] [address] 07-27-2022 04:38-0400 Respiratory rate 16 /min DR TRACE MATTHEWS MD [address] [place] [address] 07-27-2022 04:38-0400 Systolic Blood Pressure NBP [address] TRACE MATTHEWS MD [address] [place] [address] 07-26-2022 21:08-0400 Body temperature 98.24 [degF] DR TRACE MATTHEWS MD [address] [place] [address] 07-26-2022 21:08-0400 Diastolic Blood Pressure NBP [address] TRACE MATTHEWS MD [address] [place] [address] 07-26-2022 21:08-0400 Heart rate 113 /min DR TRACE MATTHEWS MD [address] [place] [address] 07-26-2022 21:08-0400 Mean blood pressure 74 mm[Hg] DR TRACE MATTHEWS MD [address] [place] [address] 07-26-2022 21:08-0400 Reason For Taking VItal Signs DR TRACE MATTHEWS MD [address] [place] [address] 07-26-2022 21:08-0400 Respiratory rate 18 /min DR TRACE MATTHEWS MD [address] [place] [address] 07-26-2022 21:08-0400 Systolic Blood Pressure NBP [address] TRACE MATTHEWS MD [address] [place] [address] 07-26-2022 16:00-0400 Respiratory rate 16 /min DR TRACE MATTHEWS MD [address] [place] [address] 07-26-2022 09:18-0400 Heart rate 100 /min DR TRACE MATTHEWS MD [address] [place] [address] 07-26-2022 00:35-0400 Diastolic blood pressure 52 mm[Hg] DR TRACE MATTHEWS MD [address] [place] [address] 07-26-2022 00:35-0400 Mean blood pressure 71 mm[Hg] DR TRACE MATTHEWS MD [address] [place] [address] 07-26-2022 00:35-0400 Systolic blood pressure 108 mm[Hg] DR TRACE MATTHEWS MD [address] [place] [address] 07-25-2022 07:55-0400 Heart rate 86 /min DR TRACE MATTHEWS MD [address] [place] [address] 07-24-2022 23:40-0400 Diastolic blood pressure 57 mm[Hg] DR TRACE MATTHEWS MD [address] [place] [address] 07-24-2022 23:40-0400 Mean blood pressure 81 mm[Hg] DR TRACE MATTHEWS MD [address] [place] [address] 07-24-2022 23:40-0400 Systolic blood pressure 128 mm[Hg] DR TRACE MATTHEWS MD [address] [place] [address] 07-24-2022 20:26-0400 Diastolic blood pressure 54 mm[Hg] DR TRACE MATTHEWS MD [address] [place] [address] 07-24-2022 20:26-0400 Mean blood pressure 77 mm[Hg] DR TRACE MATTHEWS MD [address] [place] [address] 07-24-2022 20:26-0400 Systolic blood pressure 124 mm[Hg] DR TRACE MATTHEWS MD [address] [place] [address] 07-21-2022 13:01-0400 Body temperature 96.62 [degF] DR TRACE MATTHEWS MD [address] [place] [address] 07-15-2022 11:49-0400 Diastolic blood pressure 45 mm[Hg] DR TRACE MATTHEWS MD [address] [place] [address] 07-15-2022 11:49-0400 Mean blood pressure 59 mm[Hg] DR TRACE MATTHEWS MD [address] [place] [address] 07-15-2022 11:49-0400 Systolic blood pressure 106 mm[Hg] DR TRACE MATTHEWS MD [address] [place] [address] 07-15-2022 09:23-0400 Diastolic blood pressure 80 mm[Hg] DR TRACE MATTHEWS MD [address] [place] [address] 07-15-2022 09:23-0400 Mean blood pressure 111 mm[Hg] DR TRACE MATTHEWS MD [address] [place] [address] 07-15-2022 09:23-0400 Systolic blood pressure 157 mm[Hg] DR TRACE MATTHEWS MD [address] [place] [address] 07-15-2022 08:53-0400 Diastolic blood pressure 85 mm[Hg] DR TRACE MATTHEWS MD [address] [place] [address] 07-15-2022 08:53-0400 Mean blood pressure 113 mm[Hg] DR TRACE MATTHEWS MD [address] [place] [address] 07-15-2022 08:53-0400 Systolic blood pressure 153 mm[Hg] DR TRACE MATTHEWS MD [address] [place] [address] 07-15-2022 04:10-0400 SaO2% (BldA) [Mass fraction] 97.5 % DR TRACE MATTHEWS MD [facility] 07-13-2022 19:08-0400 SaO2% (BldA) [Mass fraction] 98.9 % DR TRACE MATTHEWS MD [facility] 07-13-2022 17:39-0400 SaO2% (BldA) [Mass fraction] 99.1 % DR TRACE MATTHEWS MD [facility] 07-13-2022 16:25-0400 Body temperature 97.84 [degF] DR TRACE MATTHEWS MD [address] [place] [address] 07-13-2022 16:20-0400 Body temperature 97.77 [degF] DR TRACE MATTHEWS MD [facility] 07-13-2022 16:15-0400 Body temperature 97.7 [degF] DR TRACE MATTHEWS MD [facility] 07-13-2022 11:30-0400 Body height [address] TRACE MATTHEWS MD [address] [place] [address] 07-13-2022 11:30-0400 Body weight 98.[address] TRACE MATTHEWS MD [facility] 07-13-2022 11:30-0400 Body weight 36.25 kg/m2 DR TRACE MATTHEWS MD [facility] 07-11-2022 17:05-0400 Heart rate 97 /min DR TRACE MATTHEWS MD [facility] 07-11-2022 14:31-0400 Heart rate 91 /min DR TRACE MATTHEWS MD [facility] 07-11-2022 11:20-0400 Body weight 98.[address] TRACE MATTHEWS MD [facility] 07-11-2022 11:20-0400 Heart rate 92 /min DR TRACE MATTHEWS MD [facility] 07-11-2022 10:00-0400 Diastolic blood pressure 76 mm[Hg] MARIANA RAMOS MD [facility] 07-11-2022 10:00-0400 Heart rate 89 /min MARIANA RAMOS MD [facility] 07-11-2022 10:00-0400 Mean blood pressure 97 mm[Hg] MARIANA RAMOS MD [facility] 07-11-2022 10:00-0400 Systolic blood pressure 139 mm[Hg] MARIANA RAMOS MD [facility] 07-11-2022 08:30-0400 Diastolic blood pressure 74 mm[Hg] MARIANA RAMOS MD [facility] 07-11-2022 08:30-0400 Heart rate 92 /min MARIANA RAMOS MD [facility] 07-11-2022 08:30-0400 Respiratory rate 16 /min MARIANA RAMOS MD [facility] 07-11-2022 08:30-0400 Systolic blood pressure 147 mm[Hg] MARIANA RAMOS MD [facility] 07-11-2022 07:34-0400 Body temperature 98.42 [degF] MARIANA RAMOS MD [facility] 07-11-2022 07:34-0400 Diastolic blood pressure 86 mm[Hg] MARIANA RAMOS MD [facility] 07-11-2022 07:34-0400 Heart rate 92 /min MARIANA RAMOS MD [facility] 07-11-2022 07:34-0400 Mean blood pressure 110 mm[Hg] MARIANA RAMOS MD [facility] 07-11-2022 07:34-0400 Respiratory rate 18 /min MARIANA RAMOS MD [facility] 07-11-2022 07:34-0400 Systolic blood pressure 158 mm[Hg] MARIANA RAMOS MD [facility] 12-04-2021 13:19-0500 Diastolic blood pressure 79 mm[Hg] LEONA RIOS MD [facility] 12-04-2021 13:19-0500 Heart rate 101 /min LEONA RIOS MD [facility] 12-04-2021 13:19-0500 Reason For Taking VItal Signs LEONA RIOS MD [facility] 12-04-2021 13:19-0500 Respiratory rate 18 /min LEONA RIOS MD [facility] 12-04-2021 13:19-0500 Systolic blood pressure 140 mm[Hg] LEONA RIOS MD [facility] 12-04-2021 11:12-0500 Diastolic blood pressure 76 mm[Hg] LEONA RIOS MD [facility] 12-04-2021 11:12-0500 Heart rate 106 /min LEONA RIOS MD [facility] 12-04-2021 11:12-0500 Reason For Taking VItal Signs LEONA RIOS MD [facility] 12-04-2021 11:12-0500 Respiratory rate 18 /min LEONA RIOS MD [facility] 12-04-2021 11:12-0500 Systolic blood pressure 139 mm[Hg] LEONA RIOS MD [facility] 12-04-2021 08:20-0500 Body temperature 98.24 [degF] LEONA RIOS MD [facility] 12-04-2021 08:20-0500 Diastolic blood pressure 79 mm[Hg] LEONA RIOS MD [facility] 12-04-2021 08:20-0500 Heart rate 98 /min LEONA RIOS MD [facility] 12-04-2021 08:20-0500 Respiratory rate 16 /min LEONA RIOS MD [facility] 12-04-2021 08:20-0500 Systolic blood pressure 145 mm[Hg] LEONA RIOS MD [facility] 09-15-2021 20:35-0400 Diastolic blood pressure 80 mm[Hg] JANKI ADAMS MD [facility] 09-15-2021 20:35-0400 Heart rate 100 /min JANKI ADAMS MD [facility] 09-15-2021 20:35-0400 Mean blood pressure 103 mm[Hg] JANKI ADAMS MD [facility] 09-15-2021 20:35-0400 Respiratory rate 22 /min JANKI ADAMS MD [facility] 09-15-2021 20:35-0400 Systolic blood pressure 148 mm[Hg] JANKI ADAMS MD [facility] 09-15-2021 19:24-0400 SaO2% (BldA) [Mass fraction] 99 % JANKI ADAMS MD [facility] 09-15-2021 18:26-0400 Body temperature 99.14 [degF] JANKI ADAMS MD [facility] 09-15-2021 18:26-0400 Body weight 96 kg JANKI ADAMS MD [facility] 09-15-2021 18:26-0400 Diastolic blood pressure 88 mm[Hg] JANKI ADAMS MD [facility] 09-15-2021 18:26-0400 Heart rate 107 /min JANKI ADAMS MD [facility] 09-15-2021 18:26-0400 Respiratory rate 20 /min JANKI ADAMS MD [facility] 09-15-2021 18:26-0400 Systolic blood pressure 156 mm[Hg] JANKI ADAMS MD [facility] Encounters Encounter Date Encounter Type Care Provider Facility Start: 09-26-2025 End: 09-26-2025 ambulatory [facility] Facility:[facility] Start: 09-25-2025 ambulatory Jonathan Gilma Jewell ty:[facility] Start: 09-18-2025 ambulatory Jonathan Gilma Hinds Facili ty:[facility] Start: 09-11-2025 ambulatory Jonathan Gilma Hinds Facili ty:[facility] Start: 09-10-2025 End: 09-10-2025 Emergency department patient visit Royce Vigil Facility:[facility] Start: 09-09-2025 ambulatory Jonathan Gilma ELMORE Facili ty:[facility] Start: 09-06-2025 ambulatory Jonathan Gilma ELMORE Facili ty:[facility] Start: 09-04-2025 ambulatory Jonathan Gilma ELMORE Facili ty:[facility] Start: 11-01-2023 Patient encounter status Marlon little Dionna CHUFITTER WELDER Work Phone: [facility] Work Phone: Start: 10-31-2023 End: 10-31-2023 [facility] Start: 10-31-2023 Evaluation and manag ement of inpatient VARSHA SOTELO [facility] Start: 10-31-2023 End: 10-31-2023 Office outpatient visit 25 minutes Elida CHUFITTER WELDER Work Phone: [facility] Comment on above: Preop cardiovascular exam (Primary Dx); Chronic systolic heart failure (CMS/HCC) Start: 10-31-2023 End: 10-31-2023 Patient encounter status Elida L Dionna JO-FITTER WELDER Work Phone: [facility] Work Phone: Start: 10-31-2023 End: 10-31-2023 ambulatory ELIDA VILLAREAL [facility] Start: 10-28-2023 End: 11-02-2023 ambulatory RITU HARRELL [facility] Start: 10-28-2023 End: 10-28-2023 ambulatory BARBER MORALES [facility] Start: 10-28-2023 End: 10-28-2023 Encounter for other preprocedural examination BARBER MORALES [facility] Start: 10-28-2023 End: 10-28-2023 Admission to establishment [facility] Work Phone: Start: 10-28-2023 End: 10-28-2023 Subsequent hospital visit by physician Marnie [id number] Cr Nonv1 Holter/Ecg Resource [facility] Comment on above: Encounter for preadm ission testing Start: 10-20-2023 End: 10-20-2023 ambulatory BARBER MORALES [facility] Start: 10-17-2023 End: 10-17-20[facility] Start: 10-17-2023 End: 10-17-2023 Office outpatient visit 40 minutes Varsha Sotelo MD Work Phone: [facility] Comment on above: Colovaginal fistula (Primary Dx) Start: 10-11-2023 End: 10-11-[address] Jonathan Dillard Sr. Work Phone: [facility] Work Phone: Start: 10-11-2023 End: 10-11-[address] Jonathan Dillard Sr. Work Phone: [facility]Outpatient Pavilion Ultrasound Work Phone: Start: 10-11-[address] Jonathan acevedo Sr. Work Phone: [facility] Start: 10-04-[address] Jonathan acevedo Sr. Work Phone: [facility] Start: 10-03-[address] Jonathan acevedo Sr. Work Phone: [facility] Start: 09-15-2023 End: 09-28-2023 Encounter for preprocedural cardiovascular examination VARSHA SOTELO [facility] Start: 09-15-2023 End: 09-28-2023 Evaluation and management of inpatient Velvet Jerez DO Work Phone: [facility] Start: 09-15-2023 End: 09-28-2023 Patient encounter status Velvet Jerez DO Work Phone: [facility] Start: 09-15-2023 Non-patient / Non-visit Dr. Kalen Quintero. Work Phone: [facility] Start: 09-15-2023 Non-patient / Non-visit Dr. Kalen Hinds Work Phone: [facility] Work Phone: Start: 09-14-2023 End: 09-15-2023 Emergency department patient visit Dr. Jonathan Dillard Sr. Work Phone: [facility]-Emergency Department Work Phone: Start: 09-13-2023 End: 09-13-[address] Jonathan Dillard SrChe Work Phone: [facility] Work Phone: Start: 09-13-2023 End: 09-13-[address] Jonathan Dillard Sr. Work Phone: [facility] Start: 09-13-[address] Jonathan acevedo Sr. Work Phone: [facility] Start: 09-09-2023 End: 09-09-[address] Jonathan Dillard Sr. Work Phone: [facility]-Laboratory, Specimen Work Phone: Start: 09-08-[address] Jonathan Dillard Sr. Work Phone: [facility] Start: 09-08-2023 End: 09-08-[address] Jonathan Dillard Sr. Work Phone: [facility] Work Phone: Start: 08-31-2023 End: 08-31-2023 ambulatory [facility] Work Phone: Start: 08-31-2023 End: 08-31-2023 Departed Referred [facility] Start: 08-31-2023 Registered Referred MD Jonathan ELMORE [facility] Start: 08-29-2023 End: 08-30-[address] OSEI WOODWARD MD Facility:A Start: 08-29-2023 End: 08-29-[address] OSEI WOODWARD MD [facility] Start: 08-17-2023 End: 08-18-[address] MARK JEREZ MD Facility:B Start: 08-17-2023 End: 08-17-[address] MARK JEREZ MD [facility] Start: 08-16-2023 End: 08-16-2023 ambulatory MD Jonathan Dillard [facility] Work Phone: Start: 08-16-2023 End: 08-16-2023 Departed Referred MD Jonathan ELMORE [facility] Start: 08-15-[address] MARK LOPEZ MD Facility:B Start: 08-15-2023 End: 08-16-[address] MARK JEREZ MD Facility:B Start: 08-15-2023 End: 08-15-[address] MARK JEREZ MD [facility] Start: 08-09-2023 End: 08-10-2023 Emergency department patient visit MD Jonathan ELMORE [facility]-Emergency Department Work Phone: Start: 07-14-2023 End: 07-14-2023 Emergency department patient visit AUDIOMETRIC TECHNICIAN-C Barber Carlisle AUDIOMETRIC TECHNICIAN Work Phone: [facility]-Emergency Department Work Phone: Start: 06-28-2023 End: 06-28-2023 ambulatory MD Jonathan Dillard [facility] Work Phone: Start: 06-28-2023 End: 06-28-2023 Departed Referred MD Jonathan ELMORE [facility] Start: 06-28-2023 Registered Referred AUDIOMETRIC TECHNICIAN-C Flora Carlisle AUDIOMETRIC TECHNICIAN Work Phone: [facility] Start: 06-13-2023 End: 06-13-2023 ambulatory AUDIOMETRIC TECHNICIAN-C Barber Carlisle AUDIOMETRIC TECHNICIAN Work Phone: [facility] Work Phone: Start: 06-13-2023 End: 06-13-2023 Departed Referred AUDIOMETRIC TECHNICIAN-C Barber Carlisle AUDIOMETRIC TECHNICIAN Work Phone: [facility] Start: 05-04-2023 End: 05-04-2023 Patient encounter procedure AUDIOMETRIC TECHNICIAN-C Barber Carlisle AUDIOMETRIC TECHNICIAN Work Phone: [facility] Work Phone: Start: 05-04-2023 Registered Recurring AUDIOMETRIC TECHNICIAN-C Conor Carlisle AUDIOMETRIC TECHNICIAN Work Phone: [facility] Start: 04-19-2023 End: 04-19-2023 Emergency department patient visit AUDIOMETRIC TECHNICIAN-C Barber Carlisle AUDIOMETRIC TECHNICIAN Work Phone: [facility]-Emergency Department Start: 04-12-2023 End: 04-12-2023 ambulatory AUDIOMETRIC TECHNICIAN-C Barber Carlisle AUDIOMETRIC TECHNICIAN Work Phone: [facility] Work Phone: Start: 04-12-2023 End: 04-12-2023 Departed Referred AUDIOMETRIC TECHNICIAN-C Barber Carlisle AUDIOMETRIC TECHNICIAN Work Phone: [facility] Start: 04-04-2023 End: 04-04-2023 Patient encounter procedure AUDIOMETRIC TECHNICIAN-C Barber Carlisle AUDIOMETRIC TECHNICIAN Work Phone: [facility]-Laboratory, Specimen Start: 04-04-2023 End: 04-04-2023 Patient encounter procedure AUDIOMETRIC TECHNICIAN-C Barber Carlisle AUDIOMETRIC TECHNICIAN Work Phone: [facility] Start: 03-28-2023 End: 03-28-2023 ambulatory AUDIOMETRIC TECHNICIAN-C Barber Carlisle AUDIOMETRIC TECHNICIAN Work Phone: [facility] Work Phone: Start: 03-28-2023 End: 03-28-2023 Departed Referred AUDIOMETRIC TECHNICIAN-C Barber Carlisle AUDIOMETRIC TECHNICIAN Work Phone: [facility] Start: 03-28-2023 Registered Referred AUDIOMETRIC TECHNICIAN-C Flora Carlisle AUDIOMETRIC TECHNICIAN Work Phone: [facility] Start: 03-23-2023 End: 03-23-2023 Patient encounter procedure AUDIOMETRIC TECHNICIAN-C Barber Carlisle AUDIOMETRIC TECHNICIAN Work Phone: [facility] Start: 03-18-2023 End: 03-18-2023 ambulatory AUDIOMETRIC TECHNICIAN-C Barber Carlisle AUDIOMETRIC TECHNICIAN Work Phone: [facility] Work Phone: Start: 03-18-2023 End: 03-18-2023 Patient encounter procedure AUDIOMETRIC TECHNICIAN-C Barber Carlisle AUDIOMETRIC TECHNICIAN Work Phone: [facility] Start: 03-09-2023 Registered Recurring AUDIOMETRIC TECHNICIAN-C Conor Carlisle AUDIOMETRIC TECHNICIAN Work Phone: [facility] Start: 03-09-2023 End: 03-09-2023 Patient encounter procedure AUDIOMETRIC TECHNICIAN-C Barber Carlisle AUDIOMETRIC TECHNICIAN Work Phone: [facility] Start: 03-08-2023 Registered Referred AUDIOMETRIC TECHNICIAN-C Flora Carlisle AUDIOMETRIC TECHNICIAN Work Phone: [facility] Start: 03-04-2023 Registered Referred AUDIOMETRIC TECHNICIAN-C Flora Carlisle AUDIOMETRIC TECHNICIAN Work Phone: [facility] Start: 02-28-2023 End: 02-28-2023 ambulatory AUDIOMETRIC TECHNICIAN-C Barber Carlisle AUDIOMETRIC TECHNICIAN Work Phone: [facility] Work Phone: Start: 02-28-2023 End: 02-28-2023 Departed Referred AUDIOMETRIC TECHNICIAN-C Barber Carlisle AUDIOMETRIC TECHNICIAN Work Phone: [facility] Start: 02-25-2023 Non-patient / Non-visit AUDIOMETRIC TECHNICIAN-C Deepika Carlisle AUDIOMETRIC TECHNICIAN Work Phone: [facility] Start: 02-24-2023 Non-patient / Non-visit AUDIOMETRIC TECHNICIAN-C L asif Solisson AUDIOMETRIC TECHNICIAN Work Phone: [facility] Start: 02-23-2023 Non-patient / Non-visit AUDIOMETRIC TECHNICIAN-C L asif Solisson AUDIOMETRIC TECHNICIAN Work Phone: [facility] Start: 02-23-2023 Non-patient / Non-visit AUDIOMETRIC TECHNICIAN-C L asif Solisson AUDIOMETRIC TECHNICIAN Work Phone: [facility] Start: 02-22-2023 Non-patient / Non-visit AUDIOMETRIC TECHNICIAN-C L asif Solisson AUDIOMETRIC TECHNICIAN Work Phone: [facility] Start: 02-22-2023 Non-patient / Non-visit AUDIOMETRIC TECHNICIAN-C L indalivia Lorson AUDIOMETRIC TECHNICIAN Work Phone: [facility] Start: 02-21-2023 Non-patient / Non-visit AUDIOMETRIC TECHNICIAN-C L asif Solisson AUDIOMETRIC TECHNICIAN Work Phone: [facility] Start: 02-21-2023 Non-patient / Non-visit AUDIOMETRIC TECHNICIAN-C L indalivia Solisson AUDIOMETRIC TECHNICIAN Work Phone: [facility] Start: 02-20-2023 Non-patient / Non-visit AUDIOMETRIC TECHNICIAN-C L indsey Lorson AUDIOMETRIC TECHNICIAN Work Phone: [facility] Start: 02-20-2023 Non-patient / Non-visit AUDIOMETRIC TECHNICIAN-C L indalivia Lorson AUDIOMETRIC TECHNICIAN Work Phone: [facility] Start: 02-20-2023 Non-patient / Non-visit AUDIOMETRIC TECHNICIAN-C L indsey Lorson AUDIOMETRIC TECHNICIAN Work Phone: [facility] Start: 02-19-2023 Non-patient / Non-visit AUDIOMETRIC TECHNICIAN-C L asif Solisson AUDIOMETRIC TECHNICIAN Work Phone: [facility] Start: 02-19-2023 Non-patient / Non-visit AUDIOMETRIC TECHNICIAN-C L asif Solisson AUDIOMETRIC TECHNICIAN Work Phone: [facility] Start: 02-18-2023 Non-patient / Non-visit AUDIOMETRIC TECHNICIAN-C L asif Solisson AUDIOMETRIC TECHNICIAN Work Phone: [facility] Start: 02-18-2023 Non-patient / Non-visit AUDIOMETRIC TECHNICIAN-C L asif Solisson AUDIOMETRIC TECHNICIAN Work Phone: [facility] Start: 02-18-2023 Non-patient / Non-visit AUDIOMETRIC TECHNICIAN-C L indalivia Lorson AUDIOMETRIC TECHNICIAN Work Phone: [facility] Start: 02-18-2023 End: 02-25-2023 Evaluation and management of inpatient AUDIOMETRIC TECHNICIAN-C Barber Carlisle AUDIOMETRIC TECHNICIAN Work Phone: [facility]-Intensive Care Unit Start: 02-07-2023 End: 02-07-2023 ambulatory AUDIOMETRIC TECHNICIAN-C Barber Carlisle AUDIOMETRIC TECHNICIAN Work Phone: [facility] Work Phone: Start: 02-07-2023 End: 02-07-2023 Departed Referred AUDIOMETRIC TECHNICIAN-C Barber Carlisle AUDIOMETRIC TECHNICIAN Work Phone: [facility] Start: 02-07-2023 Registered Referred AUDIOMETRIC TECHNICIAN-C Flora Carlisle AUDIOMETRIC TECHNICIAN Work Phone: [facility] Start: 01-11-2023 End: 01-11-2023 Patient encounter procedure AUDIOMETRIC TECHNICIAN-C Barber Carlisle AUDIOMETRIC TECHNICIAN Work Phone: [facility] Start: 01-11-2023 Registered Recurring AUDIOMETRIC TECHNICIAN-C Conor Carlisle AUDIOMETRIC TECHNICIAN Work Phone: [facility] Start: 11-11-2022 End: 11-11-2022 Patient encounter procedure AUDIOMETRIC TECHNICIAN-C Barber Carlisle AUDIOMETRIC TECHNICIAN Work Phone: [facility] Start: 11-01-2022 End: 11-01-2022 ambulatory AUDIOMETRIC TECHNICIAN-C Barber Carlisle AUDIOMETRIC TECHNICIAN Work Phone: [facility] Work Phone: Start: 11-01-2022 End: 11-01-2022 Departed Referred AUDIOMETRIC TECHNICIAN-C Barber Carlisle AUDIOMETRIC TECHNICIAN Work Phone: [facility] Start: 11-01-2022 Registered Referred AUDIOMETRIC TECHNICIAN-C Flora Carlisle AUDIOMETRIC TECHNICIAN Work Phone: [facility] Start: 10-26-2022 End: 10-27-2022 ambulatory TRACE MATTHEWS MD Facility:B Start: 10-26-2022 End: 10-26-[address] TRACE MATTHEWS MD [facility] Start: 10-05-2022 End: 10-05-2022 Patient encounter procedure RENETTA ASTORGA DOCUMENTATION ENGINEER-FITTER WELDER [facility] Start: 10-05-2022 End: 10-06-2022 ambulatory AUDIOMETRIC TECHNICIAN-C Barber Carlisle AUDIOMETRIC TECHNICIAN Work Phone: [facility] Work Phone: Start: 10-05-2022 End: 10-05-2022 Departed Referred AUDIOMETRIC TECHNICIAN-C Barber Carlisle AUDIOMETRIC TECHNICIAN Work Phone: [facility] Start: 10-05-2022 Registered Referred [facility] Start: 09-29-2022 End: 09-29-2022 ambulatory AUDIOMETRIC TECHNICIAN-C Barber Carlisle AUDIOMETRIC TECHNICIAN Work Phone: [facility] Work Phone: Start: 09-29-2022 End: 09-29-2022 Departed Referred AUDIOMETRIC TECHNICIAN-C Barber Carlisle AUDIOMETRIC TECHNICIAN Work Phone: [facility] Start: 09-29-2022 Registered Referred [facility] Start: 09-09-2022 End: 09-09-2022 Patient encounter procedure RENETTA ASTORGA DOCUMENTATION ENGINEER-[facility] Start: 09-08-2022 End: 09-08-2022 ambulatory [facility] Work Phone: Start: 09-08-2022 End: 09-08-2022 Departed Referred [facility] Start: 09-08-2022 Registered Referred [facility] Start: 09-01-2022 End: 09-01-2022 ambulatory [facility] Work Phone: Start: 09-01-2022 End: 09-01-2022 Departed Referred [facility] Start: 09-01-2022 Registered Referred [facility] Start: 08-26-2022 End: 08-26-2022 ambulatory [facility] Work Phone: Start: 08-26-2022 End: 08-26-2022 Departed Referred [facility] Start: 08-12-2022 End: 08-12-[address] TRACE MATTHEWS MD [facility] Start: 08-10-2022 End: 08-10-2022 Admission to same day surgery center BARBER CARLISLE DOCUMENTATION ENGINEER-FITTER WELDER [facility] Start: 08-02-2022 Registered Referred [facility] Start: 07-14-2022 End: 07-14-2022 Admission to same day surgery center ARYAN VAZ DOCUMENTATION ENGINEER-FITTER WELDER [facility] Start: 07-11-2022 End: 07-27-2022 Evaluation and management of inpatient DR TRACE MATTHEWS MD [facility] Start: 07-11-2022 End: 07-11-2022 Emergency department patient visit MARIANA RAMOS MD [facility] Start: 12-04-2021 End: 12-04-2021 Emergency department patient visit LEONA RIOS MD [facility] Start: 09-15-2021 End: 09-15-2021 Emergency department patient visit JANKI ADAMS MD [facility] Start: 09-15-2021 End: 09-15-2021 Patient encounter procedure BARBER CARLISLE DOCUMENTATION ENGINEER-FITTER WELDER [facility] Start: 08-15-2017 Ambulatory Ellis Conrad [...] 09-28-2023 Sars-cov-2 detection by dna/rna Nancy Treviño DOCUMENTATION ENGINEER-[facility] Work Phone: Start: 09-28-2023 Blood count [...] 09-27-2023 Sars-cov-2 detection by dna/rna Nancy Treviño DOCUMENTATION ENGINEER-[facility] Work Phone: Start: 09-27-2023 CBC panel [...] MD Work Phone: Start: 09-22-[address] COMMISSIONER BARBER CARLISLE Start: 09-22-2023 Glucose [Mass/volume] in [...] CARLISLE Start: 09-18-2023 Assay of ferritin Rima pAple MD Work Phone: Start: 09-18-2023 Iaad ia [...] in Serum or Plasma BARBER CARILSLE Start: 09-17-2023 Glucose quantitative blood xcpt reagent [...] culture Start: 08-16-2023 Urine culture MD Jonathan ELMROE Start: 07-14-2023 Computed tomography of abdomen and pelvis with intravenous contrast AUDIOMETRIC TECHNICIAN-C Barber Carlisle AUDIOMETRIC TECHNICIAN Work Phone: Start: 04-19-2023 Computed tomography of abdomen and pelvis with intravenous contrast AUDIOMETRIC TECHNICIAN-C Barber Irmaethan AUDIOMETRIC TECHNICIAN Work Phone: Start: 04-12-2023 Urine culture AUDIOMETRIC TECHNICIAN-C Barber Carlisle AUDIOMETRIC TECHNICIAN Work Phone: Start: 03-18-2023 Bilateral mammography AUDIOMETRIC TECHNICIAN-C Barber Carlisle AUDIOMETRIC TECHNICIAN Work Phone: Start: 03-18-2023 Ultrasonography of breast AUDIOMETRIC TECHNICIAN-C Barber Solisethan AUDIOMETRIC TECHNICIAN Work Phone: Start: 03-18-2023 CT of soft tissues of neck with contrast AUDIOMETRIC TECHNICIAN-C Barber Orestes AUDIOMETRIC TECHNICIAN Work Phone: Start: 02-20-2023 Plain chest X-ray AUDIOMETRIC TECHNICIAN-C Barber Carlisle AUDIOMETRIC TECHNICIAN Work Phone: Start: 02-19-2023 Plain chest X-ray AUDIOMETRIC TECHNICIAN-C Barber Carlisle AUDIOMETRIC TECHNICIAN Work Phone: Start: 02-18-2023 Ultrasonography of thorax AUDIOMETRIC TECHNICIAN-C Barber Carlisle AUDIOMETRIC TECHNICIAN Work Phone: Start: 02-18-2023 CT of chest without contrast AUDIOMETRIC TECHNICIAN-C Carlton Carlisle AUDIOMETRIC TECHNICIAN Work Phone: Start: 02-17-2023 CT of head without contrast AUDIOMETRIC TECHNICIAN-C Barber Carlisle AUDIOMETRIC TECHNICIAN Work Phone: Start: 02-17-2023 Plain chest X-ray AUDIOMETRIC TECHNICIAN-C Barber Carlisle AUDIOMETRIC TECHNICIAN Work Phone: Start: 07-13-2022 Excision of cervical intervertebral disc BARBER CARLISLE DOCUMENTATION ENGINEER-FITTER WELDER Comment on above: ACDF Appendectomy Kandi Sharma Appendectomy BARBER ORESTES DOCUMENTATION ENGINEER-FITTER WELDER Comment on above: left water taken off Arthroscopic knee operation BARBER CARLISLE DOCUMENTATION ENGINEER-FITTER WELDER Comment on above: right Arthroscopy of knee Kandi rai Bacteria identified in Blood by Culture AUDIOMETRIC TECHNICIAN-C Barber Orestes AUDIOMETRIC TECHNICIAN Work Phone: Cardiac catheter (physical object) BARBER SOLISETHAN DOCUMENTATION ENGINEER-FITTER WELDER Comment on above: years ago Cardiac catheterization Marilyn Sharma Cataract surgery Kandi Castorena er Cholecystectomy Kandi Francis r Cholecystectomy BARBER ALLA ON DOCUMENTATION ENGINEER-FITTER WELDER Clostridium difficile detection AUDIOMETRIC TECHNICIAN-C Barber Carlisle AUDIOMETRIC TECHNICIAN Work Phone: Colonoscopy Kandi Sharma Colonoscopy BARBER ORETSES DOCUMENTATION ENGINEER-FITTER WELDER Esophagogastroduodenoscopy E gerson Sharma Esophagogastroduodenoscopy Deepika CARLISLE DOCUMENTATION ENGINEER-FITTER WELDER Ligation of fallopian tube E gerson Sharma Ligation of fallopian tube Deepika CARLISLE DOCUMENTATION ENGINEER-FITTER WELDER Lumpectomy of breast Kandi dorantes Lumpectomy of breast BARBER CARLISLE DOCUMENTATION ENGINEER-FITTER WELDER Comment on above: left None (qualifier value) FLORA CARILSLE DOCUMENTATION ENGINEER-FITTER WELDER Phacoemulsification of cataract with intraocular lens implantation BARBER CARLISLE DOCUMENTATION ENGINEER-FITTER WELDER Comment on above: both eyes Urine culture Urine culture AUDIOMETRIC TECHNICIAN-C Barbre Carilsle AUDIOMETRIC TECHNICIAN Work Phone: Urine culture AUDIOMETRIC TECHNICIAN-C Barber Solisethan AUDIOMETRIC TECHNICIAN Work Phone: Viral antigen assay AUDIOMETRIC TECHNICIAN-C Bhavna godfrey Solisethan AUDIOMETRIC TECHNICIAN Work Phone: Plan of Treatment Date Care Activity Detail Author Start: 10-31-2024 Creatinine measurement Creatinine Le abiodun [facility] Start: 10-31-2024 Potassium measurement Potassium Arun poe [facility] Start: 09-20-2024 Echocardiography Echocardiogram [facility] Start: 06-20-2024 Glaucoma screening [facility] Start: 12-19-2023 Hemoglobin A1c measurement [facility] Start: 11-07-2023 End: 11-01-2024 Renal function 2000 panel - Serum or Plasma Renal Function Panel Lab Routine Chronic systolic heart failure (CMS/HCC) Expected: 11/07/2023 (Approximate), Expires: 11/01/2024 [facility] Service Area Work Phone: Comment on above: Expected: 11/07/2023 (Approximate), Expires: 11/01/2024 Start: 2023 End: 2023 Admission to same day surgery center 2023 10:00 AM EST - 2023 1:35 PM [place] [facility] [place] [address] [place] [id number] [place] [address] Department [place] [address] Resection Laparoscopy Sigmoid Colon [14063 (CPT )] [facility] [place] Comment on above: Resection Laparoscop y Sigmoid Colon [83568 (CPT )] Start: 2023 End: 2023 Laparoscopy colectomy partial w/anastomosis Resection Laparoscopy Sigmoid Colon Diverticulitis 2023 10:00 AM EST Virtual [facility] Start: 2023 Subsequent hospital visit by physician 2023 8:30 AM EST Hospital [place] [facility] [place] [address] [place] [address] [place] [address] [address] Department of Surgery-Colorectal [place] [id number] [facility] [place] Start: 10-31-2023 End: 10-31-2023 Patient encounter procedure 10/31/2023 11:40 AM EST Office Visit [facility] [address] [address] Maulik [address] [place] [id number] Elida Villareal, DOCUMENTATION ENGINEER-FITTER WELDER [id number] [address] [place] [address] [facility] Start: 10-28-2023 End: 10-28-2023 Admission to establishment 10/28/2023 8:45 AM EST Pre-Admission Testing [facility] [address] [place] [id number] [facility] Start: 10-17-2023 End: 10-17-2024 CBC W Auto Differential panel - Blood CBC and Auto Differential Lab Routine Colovaginal fistula Expected: 10/17/2023 (Approximate), Expires: 10/17/2024 [facility] Work Phone: Comment on above: Expected: 10/17/2023 (Approximate), Expires: 10/17/2024 Start: 10-17-2023 End: 10-17-2024 Comprehensive metabolic 2000 panel - Serum or Plasma Comprehensive metabolic panel Lab Routine Colovaginal fistula Expected: 10/17/2023 (Approximate), Expires: 10/17/2024 [facility] Service Area Work Phone: Comment on above: Expected: 10/17/2023 (Approximate), Expires: 10/17/2024 Start: 10-17-2023 End: 10-17-2024 Prealbumin [Mass/volume] in Serum or Plasma Prealbumin Lab Routine Colovaginal fistula Expected: 10/17/2023 (Approximate), Expires: 10/17/2024 [facility] [place] Work Phone: Comment on above: Expected: 10/17/2023 (Approximate), Expires: 10/17/2024 Start: 10-17-2023 End: 10-17-2023 ambulatory [facility] Start: 10-12-2023 End: 10-12-2023 ambulatory [facility] [place] Start: 09-15-2023 [facility] Start: 09-15-2023 Bacteria identified in Blood by Culture Blood Culture [facility] Start: 09-15-2023 Hospital admission, emergency, from emergency room, medical nature [facility] Start: 09-15-2023 End: 09-15-2023 Blood culture [facility] Start: 09-15-2023 Blood culture [facility] Start: 09-08-2023 Patient referral [facility] Work Phone: Start: 08-31-2023 Bacteria identified in Urine by Culture [facility] Start: 08-31-2023 [facility] Start: 03-23-2023 Patient referral [facility] Work Phone: Start: 02-28-2023 [facility] Start: 02-27-2023 [facility] Start: 02-26-2023 [facility] Start: 02-25-2023 Patient discharge [facility] Start: 02-23-2023 Physiotherapy of chest [facility] Start: 02-21-2023 Care planning and pr oblem solving actions [facility] Start: 02-20-2023 End: 02-21-2023 [facility] Start: 02-20-2023 [facility] Start: 02-19-2023 Referral to dye tub operator [facility] Start: 02-18-2023 Vital signs measurements [facility] Start: 02-18-2023 Consultation [facility] Start: 02-18-2023 Speech therapy assessment [facility] Start: 02-18-2023 Following clinical p athway protocol [facility] Start: 02-18-2023 Assessment of risk o f venous thromboembolism [facility] Start: 02-18-2023 Assessment using assessment scale [facility] Start: 02-18-2023 Catheterization of vein [facility] Start: 02-18-2023 Consultation [facility] Start: 02-18-2023 Elevation of head of bed [facility] Start: 02-18-2023 Inhalation therapy procedure [facility] Start: 02-18-2023 Insertion of cathete r into peripheral vein [facility] Start: 02-18-2023 Measuring intake and output [facility] Start: 02-18-2023 Mouth care [facility] Start: 02-18-2023 Notification of physician [facility] Start: 02-18-2023 Oxygen therapy [facility] Start: 02-18-2023 Patient referral to dietitian [facility] Start: 02-18-2023 Providing care accor ding to standard [facility] Start: 02-18-2023 Referral to occupati onal therapist [facility] Start: 02-18-2023 Referral to service [facility] Start: 02-18-2023 Removal of urinary catheter [facility] Start: 02-18-2023 Speech therapy assessment [facility] Start: 02-18-2023 Vital signs measurements [facility] Start: 02-18-2023 End: 02-18-2023 [facility] Start: 02-18-2023 Bacterial nucleic ac id assay [facility] Start: 02-18-2023 Streptococcus pneumo niae antigen assay [facility] Start: 02-18-2023 [facility] Start: 02-18-2023 Verification routine [facility] Start: 04-07-2023 Admission procedure [facility] Start: 02-18-2023 CT of chest without contrast Chest without Contrast [facility] Start: 02-17-2023 End: 02-17-2023 Blood culture [facility] Start: 02-17-2023 Airway suction technique [facility] Start: 02-17-2023 [facility] Start: 2009 Hepatitis B Vaccines (1 of 3 - Risk 3-dose series) Hepatitis B Vaccines (1 of 3 - Risk 3-dose series) [facility] Start: 2009 [facility] Start: 1999 Zoster Vaccines (1 of 2) Zoste r Vaccines (1 of 2) [facility] Start: 1999 [facility] Start: 1989 Screening for malign ant neoplasm of breast [facility] Start: 1971 DTaP/Tdap/Td Vaccine s (1 - Tdap) DTaP/Tdap/Td Vaccines (1 - Tdap) [facility] Start: 1971 [facility] Start: 1968 Hepatitis A Vaccines (1 of 2 - Risk 2-dose series) Hepatitis A Vaccines (1 of 2 - Risk 2-dose series) [facility] Start: 1968 Urine screening for protein [facility] Start: 1968 [facility] Start: 1959 Diabetic foot examination [facility] Start: 1955 Pneumococcal Vaccine : 65+ Years (1 - PCV) Pneumococcal Vaccine: 65+ Years (1 - PCV) [facility] Start: 1955 [facility] Start: 05[birth year]04-1950 COVID-19 Vaccine (#1) COVID-19 Vacci ne (#1) [facility] Start: [birth year]04-1951 [facility] Start: 1949 Lipid panel [facility] Start: 1949 Medicare Annual Well ness Visit [facility] Start: 1949 Screening for malign ant neoplasm of colon [facility] Bacteria identified in Blood by Culture Blood Culture [facility] Bacteria identified in Sputum by Respiratory culture [facility] End: 09-23-2023 Cardiac catheterization study [facility] Work Phone: CBC panel - Blood by Automated count [facility] Work Phone: CBC W Auto Different ial panel - Blood [facility] Work Phone: CBC W Auto Different ial panel - Blood [facility] CBC W Auto Different ial panel - Blood [facility] End: 09-28-2023 Cobalamin (Vitamin B12) [Mass/volume] in Serum or Plasma [facility] Work Phone: CT Neck W contrast IV [facility] ECG 12 lead ECG 12 lead ECG Routine Encounter for preadmission testing 11/02/2023 2:17 PM EST [facility] Work Phone: Electrocardiogram, 1 2-lead PRN ACS symptoms [facility] Work Phone: Ferritin [Mass/volum e] in Serum or Plasma [facility] Work Phone: Ferritin [Mass/volum e] in Serum or Plasma [facility] Ferritin [Mass/volum e] in Serum or Plasma [facility] Folate [Mass/volume] in Serum or Plasma [facility] Work Phone: End: 09-28-2023 Folate [Mass/volume] in Serum or Plasma [facility] Work Phone: Glucose [Mass/volume ] in Serum or Plasma [facility] Work Phone: Glucose [Mass/volume ] in Serum or Plasma [facility] Work Phone: End: 09-15-2023 Incentive spirometry Instruct [facility] Work Phone: Iron and Iron bindin g capacity panel - Serum or Plasma [facility] Work Phone: Iron and Iron bindin g capacity panel - Serum or Plasma [facility] Iron and Iron bindin g capacity panel - Serum or Plasma [facility] Lactate dehydrogenas e measurement [facility] Work Phone: Lactate dehydrogenas e measurement [facility] Lactate dehydrogenas e measurement [facility] Legionella pneumophi la Ag [Presence] in Urine [facility] Magnesium [Mass/volu me] in Serum or Plasma [facility] Magnesium [Mass/volu me] in Serum or Plasma [facility] Service Area Work Phone: Magnesium [Mass/volu me] in Serum or Plasma [facility] Work Phone: Microscopic observat ion [Identifier] in Unspecified specimen by Gram stain Gram Stain [facility] Patient Education [facility] Work Phone: Patient referral [facility] Work Phone: Renal function 1999 panel - Serum or Plasma [facility] Work Phone: Renal function 1999 panel - Serum or Plasma [facility] Work Phone: Respiratory Culture Respiratory Culture [facility] Reticulocyte count [facility] Work Phone: Reticulocyte count [facility] Vitamin B12 measurement [facility] Work Phone: Vitamin B12 measurement [facility] Immunizations Immunization Date Immunization Notes Care Provider Kemar morales 08-09-2023 influenza virus vaccine, unspecified formulation DR OSEI WOODWARD MD [facility] 08-23-2022 influenza virus vaccine, unspecified formulation DR OSEI WOODWARD MD [facility] 11-28-2021 influenza virus vaccine, unspecified formulation MARIANA RAMOS MD [facility] [place] 11-28-2021 influenza, injectabl e, quadrivalent, preservative free Jonathan Deperro CATARINA [facility] 11-28-2021 influenza, seasonal, injectable [facility] 09-16-2021 influenza, high dose seasonal, preservative-free; Translations: [Fluad Quadrivalent PF ] LEONA RIOS MD [facility] 08-27-2019 influenza, injectabl e, quadrivalent, preservative free; Translations: [Fluarix PF Quadrivalent ] BARBER CARLISLE DOCUMENTATION ENGINEER-FITTER WELDER [facility] 09-13-2017 influenza virus vaccine, unspecified formulation MARIANA RAMOS MD [facility] 09-19-2014 influenza virus vaccine, unspecified formulation MARIANA RAMOS MD [facility] Payers Date Payer Category Payer Self-pay [id number] 2022 Private Health Insurance [id number] 2022 Unknown [id number] 2022 Unknown [id number] 2022 Medicare [id number].[facility] 2022 Medicare [id number] 1949 Unknown [id number] 2.16.840.1.666405.3.579.2.6 1949 Unknown [id number] 2.16.840.1.813501.3.579.2.6 1949 Unknown [id number] 2.16.840.1.170423.3.579.2.6 1949 Unknown [id number] 2.16.840.1.379097.3.579.2.6 27 1949 Unknown [id number] 2.16.840.1.329644.3.579.2.6 27 1949 Unknown [id number] 2.16.840.1.313567.3.579.2.6 27 1949 Unknown [id number] 2.16.840.1.774287.3.579.2.6 27 1949 Unknown [id number] 2.16.840.1.178303.3.579.2.1 244 1949 Unknown [id number] 2.16.840.1.978666.3.579.2.1 245 1949 Unknown [id number] 2.16.840.1.646070.3.579.2.1 245 1949 Unknown [id number] 2.16.840.1.952125.3.579.2.1 245 1949 Unknown [id number] 2.16.840.1.371660.3.579.2.1 245 1949 Unknown [id number] 2.16.840.1.001377.3.579.2.1 245 1949 Unknown [id number] 2.16.840.1.598669.3.579.2.1 245 1949 Unknown [id number] 2.16.840.1.409245.3.579.2.1 245 Private Health Insurance [facility] [id number] Unknown Unknown [id number] Unknown [id number] 2.16.840.1.252674.3.579.2.4 62 Unknown [id number] 2.16.840.1.374471.3.579.2.4 62 Unknown [id number] 2.16.840.1.890987.3.579.2.4 62 Unknown [id number] 2.16.840.1.942209.3.579.2.4 62 Unknown [id number] 2.16.840.1.568947.3.579.2.4 62 Unknown [id number] 2.16.840.1.141904.3.579.2.4 62 Unknown [id number] 2.16.840.1.539314.3.579.2.4 62 Unknown [id number] 2.16.840.1.282557.3.579.2.4 62 Social History Date Type Detail Facility Start: 03-10-2020 End: 09-25-2023 Ex-smoker (finding) [facility] Start: 1950 Sex Assigned At Female [facility] Start: 11-24-2021 End: 09-14-2023 Tobacco smoking status NHIS Unknown if ever smoked [facility] History of tobacco use Current smoker [facility] Work Phone: History of tobacco use Cigarette Smoker U [facility] Work Phone: Start: 09-25-2023 Tobacco use and exposure Smoke less tobacco non-user [facility] Work Phone: Start: 09-28-2023 End: 10-20-2023 Alcohol intake Ex-drinker (finding) [facility] Work Phone: Start: 09-25-2023 End: 10-31-2023 History of Social function [facility] Work Phone: Start: 09-25-2023 End: 10-31-2023 Alcohol Use Disorder Identification Test - Consumption [AUDIT-C] [facility] Work Phone: How often to you hav e a drink containing alcohol? Never [facility] Work Phone: How many standard dr inks containing alcohol do you have on a typical day? [facility] Work Phone: Start: 09-25-2023 Tobacco Comment Patient quit y ears ago [facility] Work Phone: Start: 1950 [facility] Start: 09-06-2023 End: 10-31-2023 Exposure to SARS-CoV-2 (event) Not sure [facility] NEGATED: Highlighted row - - MP-Univ Gastroenterology-Can [...] Status Patient Identi fied Identification band, Verbal [facility] 08-15-2023 Functional Status Maintained [facility] 02-25-2023 Functional status Ambulates;Chair [facility] Work Phone: 07-27-2022 Functional Status Room check performed [facility] 07-26-2022 Functional Status Yes [facility] 07-26-2022 Functional Status Min A 1 [facility] 07-26-2022 Functional Status None [facility] 07-26-2022 Functional Status [facility] 07-26-2022 Functional Status [facility] 07-25-2022 Functional Status Ambulation in Room [facility] 07-25-2022 Functional Status [facility] [...] D evice Unable to use call device [facility] 07-16-2022 Functional Status [facility] 07-16-2022 Functional Status [facility] 07-15-2022 Functional Status [facility] 07-15-2022 Functional Status [facility] 07-13-2022 Functional Status Patient Identi fied Identification band [facility] 07-13-2022 Functional Status Sensory Deficits None [facility] 07-11-2022 Functional Status Standard Safet y ID band on, Call device within reach, Bed in low position, Wheels locked, Upper/Half-Length side-rails up, Phone within reach, personal items within reach [facility] NEGATED: Highlighted row Functional performance Functional status health issues are not documented [facility] Work Phone: Mental Status Date Assessment Result Facility 08-15-2023 Mental Status Orientation [facility] 4 [facility] 08-09-2023 Cognitive function Level Of Cons ciousness Awake;Alert;Appropriate ;Follows Commands [facility] Work Phone: 02-25-2023 Cognitive function Voice/Name [facility] Work Phone: 07-27-2022 Mental Status Oriented x 4, Follows simple commands [facility] 07-26-2022 Mental Status [facility] 07-26-2022 Mental Status [facility] 07-26-2022 Mental Status [facility] 07-11-2022 Mental Status Orientation [facility] x 4 [facility] NEGATED: Highlighted row Cognitive function [Interpretation] [...] surgery. HPI Presented as a transfer from [facility] with left lower quadrant abdominal pain [...] Chronic Venous Insufficiency, RLE DVT, OA, GERD, ?AR, LUISA, HFrEF PSHx: Lumpectomy, Cholecystectomy, Appendectomy Presents from [facility] with nursing aid. Denies chest pain. [...] IV Risk w/15% 30-day risk of , AR, or cardiac arrest. Order for BNP. documented in this encounter [facility] Work Phone: 10-31-2023 Instructions FREDY Olivares - [...] Continue all other medications as ordered. Call [phone] to schedule follow up with Dr. Rowell ([place]). documented in this encounter [facility] Work Phone: 10-17-2023 History of Present illness [...] 2 times a day. 09/27/23 Nancy Treviño APRN-FITTER WELDER bisacodyl (Dulcolax) 10 mg suppository Insert 1 [...] daily. For 7 days ending 09/20/23. ([facility] Jie Probiotic 15 BILLION per [facility] list) 09/27/23 Nancy Treviño APRN-FITTER WELDER magnesium hydroxide (Milk of Magnesia) 400 mg/5 mL suspension Take 30 mL by mouth once daily as needed for constipation. Historical Provider, metoprolol succinate XL (Toprol-XL) 100 mg 24 hr tablet Take 1 tablet (100 mg) by mouth once daily. Do not crush or chew. Do not start before September 28, 2023. 09/28/23 Nancy Treviño APRN-FITTER WELDER ondansetron (Zofran) 4 mg tablet Take 1 [...] 2 times a day. 09/27/23 Nancy Treviño APRN-FITTER WELDER sennosides-docusate sodium (Zarina-Colace) 8.6-50 mg tablet Take [...] Pre Op optimization. COMPARISON: None. ACCESSION NUMBER(S): [id number] ORDERING CLINICIAN: KANG JULIAN TECHNIQUE: Using multi-detector [...] Yair Pham 09/28/2023 11:26 AM Dictation workstation: [id number] Electrocardiogram, 12-lead PRN ACS symptoms Result Date: [...] colovesical colovaginal fistula. COMPARISON: None ACCESSION NUMBER(S): [id number] ORDERING CLINICIAN: KANG JULIAN TECHNIQUE: Multiplanar MRI [...] Cristina MD. This study was interpreted at [facility], [place], [place]. MACRO: None Signed by: Clint Woods 09/25/2023 3:47 PM Dictation workstation: [id number] Transthoracic Echo (TTE) Complete Result Date: 09/20/2023 [facility], [address] [place] [address] and TRANSTHORACIC ECHOCARDIOGRAM REPORT Patient Name: POLI VALERIY Reading Physician: [id number] Kandi Roberts MD Study Date: 09/20/2023 Ordering Provider: [id number] VARSHA SOTELO MRN/PID: [id number] Fellow: Nurse: Mare Higgins Date of /Age: 11 1950 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 Gender: F Additional Staff: Height: 165.10 cm Admit Date: 09/15/2023 Weight: 74.84 kg Admission Status: Inpatient - Routine BSA: 1.82 m2 Department Location: [facility] Non Invasive Blood Pressure: 126 /75 mmHg Study Type: TRANSTHORACIC ECHO (TTE) COMPLETE Diagnosis/ICD: Encounter for preprocedural cardiovascular examination-Z01.810 CPT Code: Echo Complete w Full Doppler-03308 Patient History: Pertinent History: Breast cancer, HTN, [...] LA Area A2C: 21.1 cm2 LA [place] A4C: 5.5 cm LA [place] A2C: 5.6 cm AORTA MEASUREMENTS: Normal Ranges: [...] 1.0 m/s (0.6-0.9m/s) PV Max P.0 mmHg [id number] Kandi Roberts MD Electronically signed on 09/20/2023 at 4:04:20 PM Final US abdomen limited liver Result Date: 09/20/2023 Interpreted By: Steven Chacon and Ebai Jerky STUDY: US ABDOMEN LIMITED LIVER; [facility] US ABDOMINAL/PELVIC DUPLEX COMPLETE; 09/19/2023 6:30 pm INDICATION: 72 y/o F with Signs/Symptoms:Throbocytopenia workup; Signs/Symptoms:per doctor request. COMPARISON: None. ACCESSION NUMBER(S): [id number]; [id number] ORDERING CLINICIAN: KANG JULIAN TECHNIQUE: Multiple images of the right upper quadrant were obtained. Gates scale, color Doppler and spectral Doppler waveform analysis was performed. This examination was interpreted at [facility]. FINDINGS: The liver measures 22.6 cm [...] as stated. This study was interpreted at [place], [place]. MACRO: None Signed by: Steven Chacon 09/20/2023 5:44 AM Dictation workstation: [id number] Vascular US abdomen/pelvis duplex complete Result Date: 09/20/2023 Interpreted By: Steven Chacon, and Kim Sheikh STUDY: US ABDOMEN LIMITED LIVER; [facility] US ABDOMINAL/PELVIC DUPLEX COMPLETE; 09/19/2023 6:30 pm INDICATION: 72 y/o F with Signs/Symptoms:Throbocytopenia workup; Signs/Symptoms:per doctor request. COMPARISON: None. ACCESSION NUMBER(S): [id number]; [id number] ORDERING CLINICIAN: KANG JULIAN TECHNIQUE: Multiple images of the right upper quadrant were obtained. Gates scale, color Doppler and spectral Doppler waveform analysis was performed. This examination was interpreted at [facility]. FINDINGS: The liver measures 22.6 cm [...] as stated. This study was interpreted at [place], [place]. MACRO: None Signed by: Steven Chacon 09/20/2023 5:44 AM Dictation workstation: [id number] CT head wo IV contrast Result Date: 09/19/2023 Interpreted By: Susy Canales, STUDY: CT HEAD WO IV CONTRAST; 09/19/2023 3:43 pm INDICATION: Signs/Symptoms:R/o subdural hematoma, thrombocytopenia workup (fall several weeks ago). COMPARISON: None. ACCESSION NUMBER(S): [id number] ORDERING CLINICIAN: KANG JULIAN TECHNIQUE: Axial CT [...] Susy Canales 09/19/2023 4:06 PM Dictation workstation: [id number] XR chest 1 view Result Date: 09/19/2023 Interpreted By: Delfin Menezes and [place] Lesley STUDY: XR CHEST 1 VIEW; 09/19/2023 8:46 am INDICATION: Signs/Symptoms:copd on oxygen. COMPARISON: Outside hospital CT chest 03/20/2014 ACCESSION NUMBER(S): [id number] ORDERING CLINICIAN: RIMA APPLE FINDINGS: Single AP [...] as stated. This study was interpreted at [facility], [place], [place]. MACRO: None Signed by: Delfin Menezes 09/19/2023 9:36 AM Dictation workstation: [id number] Labs: Lab Results Component Value Date BILIDIR [...] this encounter 10/23/2023 documented in this encounter [facility] Work Phone: 09-28-2023 Nurse Note Discharge paper work sent with patient, along with belongings documented in this encounter [facility] Work Phone: 09-28-2023 History of Present illness Narrative Poli Ramirez is a 72 y.o. female on day 13 of admission presenting with Colovaginal fistula. SW briefly met with pt about discharge needs. Pt lives at the [facility] in [place], [place]. Pt can discharge in the next few days. Facility notified through [facility]. SW will follow and assist as needed. SYDNEY Seth. 09/23/2023 LILY spoke to Caroline ([phone]) at the [facility] about pt's return. The facility [...] Seth. 09/26/2023 LILY spoke to Caroline from [facility] about pt's care. Pt has a cardiac scan today. ADOD is tomorr or Tuesday. Updated notes sent to pt's facility. SYDNEY Seth. 09/27/2023 Pt set for discharge today. Neg covid test (taken this morning) sent to [facility]. Transport requested for 1530. SW [...] about discharge needs. Pt lives at the [facility] in [place], [place]. Pt can discharge in the next few days. Facility notified through [facility]. SW will follow and assist as needed. SYDNEY Seth. 09/23/2023 LILY spoke to Caroline ([phone]) at the [facility] about pt's return. The facility [...] Seth. 09/26/2023 LILY spoke to Caroline from [facility] about pt's care. Pt has a cardiac scan today. ADOD is tomorrow or Tuesday. Updated notes sent to pt's facility. SYDNEY Seth. 09/27/2023 Pt set for discharge today. Neg covid test (taken this morning) sent to [facility]. Transport requested for 1530. SW [...] be rescheduled for this morning. SYDNEY Seth. [facility] HEART FAILURE PROGRESS NOTE Poli Ramirez/[id number] Admit Date: 09/15/2023 Hospital Length of Stay: [...] daily as needed for constipation. [DISCONTINUED] HYDROcodone-acetaminophen (Cl[place]burg) 5-325 mg tablet Take 1 tablet by mouth every 6 hours if needed (moderate to severe pain). [DISCONTINUED] L. acidophilus-L. rhamnosus (Probiotic) 15 billion cell capsule Take 1 capsule by mouth once daily. For 7 days ending 09/20/23. ([facility] Ultimate Jie Probiotic 15 BILLION per SNF [...] about discharge needs. Pt lives at the [facility] in [place], [place]. Pt can discharge in the next few days. Facility notified through [facility]. SW will follow and assist as needed. SYDNEY Seth. 09/23/2023 LILY spoke to Caroline ([phone]) at the [facility] about pt's return. The facility [...] Seth. 09/26/2023 LILY spoke to Caroline from [facility] about pt's care. Pt has a cardiac scan today. ADOD is tomorrow or Tuesday. Updated notes sent to pt's facility. SYDNEY Seth. 09/27/2023 Pt set for discharge today. Neg covid test (taken this morning) sent to [facility]. Transport requested for 1530. SW will let the facility know when transport is confirmed. SYDNEY Seth. 09/27/2023 Transport set for 1730 with [facility]. Care team and facility notified. SYDNEY Seth. Poli Ramirez is a 72 y.o. female on day 12 of admission presenting with Colovaginal fistula. SW briefly met with pt about discharge needs. Pt lives at the [facility] in [place], [place]. Pt can discharge in the next few days. Facility notified through [facility]. SW will follow and assist as needed. SYDNEY Seth. 09/23/2023 LILY spoke to Caroline ([phone]) at the [facility] about pt's return. The facility does not accept weekend discharges so pt will discharge back to facility on 09/26/2023. Pt will also need a negative covid test, taken same day. Care team notified. SW will arrange transport for midday 09/26. SW will follow and assist. SYNDEY Seth. 09/26/2023 SW messaged pt's residence to let them know that ADOD is 09/27, Tuesday or 09/28, Tuesday. A covid test will be done morning of discharge. SYDNEY Seth. 09/26/2023 LILY spoke to Caroline from [facility] about pt's care. Pt has a cardiac scan today. ADOD is tomorrow or Tuesday. Updated notes sent to pt's facility. SYDNEY Seth. 09/27/2023 Pt set for discharge today. Neg covid test (taken this morning) sent to [facility]. Transport requested for 1530. SW [...] of occurrence. Would advise not prolonging NTF heading matcher and assembler as can cause pulmonary toxicity but address flatbed driver of UTI (fistula). Additionally, would recommend [...] if further questions. ID team A pager [phone]. For new consults, contact pager [phone]. Patient staffed with ID attendant Dr Agarwal [...] of Assistance 1: Minimum assistance Outcome Measures: [facility] Basic Mobility Turning from your [...] RW (Progressing) Start: 09/22/23 Expected End: 10/06/23 [facility] HEART FAILURE PROGRESS NOTE Poli Ramirez/[id number] Admit Date: 09/15/2023 Hospital Length of Stay: [...] than 70 and non-responsive or NPO HYDROcodone-acetaminophen ([place]) 5-325 mg tablet Take 1 tablet by [...] 15-20%. Similar findings on TTE report from [facility]. Currently she appears compensated. Unknown etiology currently. [...] about discharge needs. Pt lives at the [facility] in [place], [place]. Pt can discharge in the next few days. Facility notified through [facility]. SW will follow and assist as needed. SYDNEY Seth. 09/23/2023 LILY spoke to Caroline ([phone]) at the [facility] about pt's return. The facility [...] Seth. 09/26/2023 LILY spoke to Caroline from [facility] about pt's care. Pt has a cardiac scan today. ADOD is tomorrow or Tuesday. Updated notes sent to pt's facility. SYDNEY Seth. Poli Ramirez is a 72 y.o. female on day 11 of admission presenting with Colovaginal fistula. LILY briefly met with pt about discharge needs. Pt lives at the [facility] in [place], [place]. Pt can discharge in the next few days. Facility notified through [facility]. SW will follow and assist as needed. SYDNEY Seth. 09/23/2023 LILY spoke to Caroline ([phone]) at the [facility] about pt's return. The facility [...] appendectomy who presented as a transfer from [facility] due to left lower quadrant abdominal [...] DM2, who presented as a transfer from [facility] due to left lower quadrant abdominal [...] PO PPI : Maintain stephens for decompression; MANGA ARTIST ONC - likely no fistula to vagina [...] Dr. Subramanian. Rasheed Brandt MD Colorectal Surgery [place] [facility] Pager [phone] Poli Ramirez is a 72 y.o. female [...] about discharge needs. Pt lives at the [facility] in [place], [place]. Pt can discharge in the next few days. Facility notified through [facility]. SW will follow and assist as needed. Susy Blunt [facility], DECKHAND ENGINEER. 09/23/2023 LILY spoke to Caroline ([phone]) at the [facility] about pt's return. The facility does not accept weekend discharges so pt will discharge back to facility on 09/26/2023. Pt will also need a negative covid test, taken same day. Care team notified. SW will arrange transport for midday 09/26. SW will follow and assist. SYDNEY Seth. [facility] HEART FAILURE PROGRESS NOTE Poli Ramirez/[id number] Admit Date: 09/15/2023 Hospital Length of Stay: 7 Primary Service: Colorectal surgery INTERVAL EVENTS / PERTINENT ROS: Records reviewed from [facility]. Patient is being planned for surgery for [...] than 70 and non-responsive or NPO HYDROcodone-acetaminophen ([place]) 5-325 mg tablet Take 1 tablet by [...] Home Living: Home Living Type of Home: [employer] [facility] facility Home Adaptive Equipment: Wheelchair-manual, Walker rolling or standard Home Layout: One level Bathroom Shower/Tub: Walk-in shower Bathroom Toilet: Handicapped height Prior Level of Function: Prior Function Per Pt/Caregiver Report Level of [place]: Needs assistance with ADLs, Needs assistance with [...] extension and ankle DF 4/5) Outcome Measures: [facility] Basic Mobility Turning from your [...] about discharge needs. Pt lives at the [facility] in [place], [place]. Pt can discharge in the next few days. Facility notified through [facility]. SW will follow and assist as needed. [...] intensity level of continued care (Return to shelter with Low intensity therapy services) OT Recommended [...] Functional Limits Home Living: Type of Home: [facility] facility Lives With: Alone Home Adaptive Equipment: Wheelchair-manual, Walker rolling or standard Home Layout: One level Home Access: No concerns Bathroom Shower/Tub: Walk-in shower Bathroom Toilet: Handicapped height Bathroom Equipment: Grab bars in shower, Built-in shower seat, Grab bars around toilet Home Living Comments: Living in shelter Prior Function: Level of [place]: Needs assistance with ADLs, Needs assistance with [...] LUE LUE: Within Functional Limits Outcome Measures: [facility] Daily Activity Putting on and [...] appendectomy who presented as a transfer from [facility] due to left lower quadrant abdominal [...] pancytopenia who presented as a transfer from [facility] due to left lower quadrant abdominal [...] (09/23) : Monitor UOP and maintain stephens [facility] onc consulted for vaginal bleeding, appreciate recs Ucx: e.fecium, awaiting sensitivities Heme/ID: Daily labs. Continue rocephin/flagyl Ppy: Lovenox 40mg daily, SCDs Special: Okay for shower Dispo: Continue care on RNF. Patient seen by and plans discussed with staff, Dr. Sotelo. Kang Julian MD Colorectal Surgery [place] [facility] Pager [phone] Images from the original note were not [...] appendectomy who presented as a transfer from [facility] due to left lower quadrant abdominal pain suspicious for colovesical/colovaginal fistula and diverticulitis on CT. Subjective [facility] on board for vaginal bleeding, awaiting [...] pancytopenia who presented as a transfer from [facility] due to left lower quadrant abdominal [...] today : Monitor UOP and maintain stephens [facility] [employer] onc consulted for vaginal bleeding, appreciate recs MRI pelvis ordered Ucx Heme/ID: Daily labs. Continue rocephin/flagyl Ppy: Lovenox 40mg daily, SCDs Special: Okay for shower Dispo: Continue care on RNF. Patient seen by and plans discussed with staff, Dr. Sotelo. Jesus Newman, DO Colorectal Surgery [facility] Pager [phone] 09/20/23 0227 Discharge Planning Living Arrangements Other (Comment) (retirement) Support Systems Children Type of Residence retirement/residential care Patient expects to be discharged to: Return to shelter- [facility] in [place], [place] Does the patient need discharge transport [...] for a colovesical/colovaginal fistuala. She resides at [facility] in [place], [place]. She would like to return there [...] appendectomy who presented as a transfer from [facility] due to left lower quadrant abdominal pain suspicious for colovesical/colovaginal fistula and diverticulitis on CT. Subjective [facility] on board for vaginal bleeding, awaiting [...] pancytopenia who presented as a transfer from [facility] due to left lower quadrant abdominal [...] prealbumin : Monitor UOP and maintain stephens [facility] [employer] onc consulted for vaginal bleeding, appreciate recs MRI pelvis ordered Ucx today Heme/ID: Daily labs. Continue rocephin/flagyl Ppy: Lovenox 40mg daily, SCDs Special: Okay for shower Dispo: Continue care on RNF. Patient seen by and plans discussed with staff, Dr. Sotelo. Kang Julian MD Colorectal Surgery [place] [facility] Pager [phone] Images from the original note were not [...] appendectomy who presented as a transfer from [facility] due to left lower quadrant abdominal [...] pancytopenia who presented as a transfer from [facility] due to left lower quadrant abdominal [...] Dr. Sotelo. Kang Julian MD Colorectal Surgery [place] [facility] Pager [phone] Images from the original note were not [...] appendectomy who presented as a transfer from [facility] due to left lower quadrant abdominal [...] pancytopenia who presented as a transfer from [facility] due to left lower quadrant abdominal [...] Dr. Sotelo. Fran Brenner MD Colorectal Surgery [place] [facility] Pager [phone] Images from the original note were not [...] appendectomy who presented as a transfer from [facility] due to left lower quadrant abdominal [...] pancytopenia who presented as a transfer from [facility] due to left lower quadrant abdominal pain suspicious for colovesical/colovaginal fistula and diverticulitis on CT. Physical exam and imaging (review radiology) is suspicious for fistula. Will work on medical optimization and acquiring outside hospital colonoscopy results for further work-up. Will engage Dr. Apple for optimization, appreciate [facility]. Plan: Neuro: Continue current pain regimen [...] Dr. Sotelo. Michelle Hendrickson MD Colorectal Surgery [place] [facility] Pager [phone] Pharmacy Medication History Review Poli Ramirez is a 72 y.o. female admitted for Colovaginal fistula. CLOUD AUTOMATION TESTER Medication List has been updated as [facility]. 09/14/23, 21:31:04 ET. The list below reflects the updated CLOUD AUTOMATION TESTER list. Please review each medication in [...] than 70 and non-responsive or NPO HYDROcodone-acetaminophen ([place]) 5-325 mg tablet Take 1 tablet by [...] [tizanidine] Not Specified Unknown Derrick Arriola PharmD, [facility] Transitions of Care Pharmacist Medication reconciliation complete Please reach out via [employer] for questions, or if no response call [employer] or [employer]. [facility] documented in this encounter [facility] Work Phone: 09-27-2023 Hospital course Narrative Discharge [...] appendectomy who presented as a transfer from [facility] with left lower quadrant abdominal pain [...] HYDROcodone-acetaminophen 5-325 mg tablet; Commonly known as: Cl[place]burg; Take 1 tablet by mouth every 6 [...] once daily. For 7 days ending 09/20/23. ([facility] Ultimate Jie Probiotic 15 BILLION per SNF [...] appointments. FREDY Holcomb documented in this encounter [facility] Work Phone: 09-27-2023 Miscellaneous Notes Poli Ramirez is a 72 year old female with a past medical history significant for hypertension on Lasix and lisinopril, hyperlipidemia, COPD (on 2 L nasal cannula at home), type 2 diabetes (not on insulin at home), left breast cancer status post lumpectomy, pancytopenia, open cholecystectomy and appendectomy who presented as a transfer from [facility] with left lower quadrant abdominal pain [...] [place] MD MPH Gynecologic Oncology PGY7 Pager: [phone], Team Phone: [phone] Problem: Pain Goal: My pain/discomfort is manageable [...] NPO since 1200, plan for U/S around [id number]. PRN pain medication given per orders. Patient requesting lidocaine gel for vaginal area for pain at stephens site, notified. All needs met, WCTM. Please see media for colonoscopy note from 08/15/23 at [facility]. Patient transitioned to the colorectal surgery service. Acute care surgery will sign off at this time. Thank you for allowing us to take care of Ms. Ramirez and we wish the best for her. Appreciate colorectal surgery care. Og Luis MD PGY-1 General Surgery Acute Care Surgery [id number] Epic Chat Preferred Discussed terms of patient's [...] but that he is currently in a shelter here in [place]. Also states that she has a daughter, Jocy Ramirez, who can make decisions for her. Does not have Jocy's number at this time, but states that she would be okay with surgical team calling her to let her know she is in the hospital at [facility]. Staci Degroot MD PGY-3 General Surgery documented in this encounter [facility] Work Phone: 09-23-2023 Consult note Associated Order [...] had a colonoscopy several weeks ago at [facility] for " work-up of the abdominal [...] colonic-vaginal vs colonic vesicular fistula. Transferred to [facility] 09/16 for surgical eval. Underwent MRI 09/21 [...] than 70 and non-responsive or NPO HYDROcodone-acetaminophen ([place]) 5-325 mg tablet Take 1 tablet by [...] of occurrence. Would advise not prolonging NTF heading matcher and assembler as can cause pulmonary toxicity but address flatbed driver of UTI (fistula). Additionally, would recommend [...] if further questions. ID team A pager [phone]. For new consults, contact pager [phone]. Patient staffed with ID attendant Dr Agarwal [...] pain over the last 4 months. At [facility] a CT scan revealed chronic inflammation with bladder wall thickening, large diverticula with stool in sigmoid colon, and a likely benign mass in the spleen (present since previous scan in 2013). The scan was not able to exclude colovesical or colovaginal fistula. Patient had a colonoscopy several weeks ago at [facility] for work-up of the abdominal pain [...] than 70 and non-responsive or NPO HYDROcodone-acetaminophen ([place]) 5-325 mg tablet 1 tablet, oral, Every [...] was refused from a surgical intervention at [facility] which sounds like it may have been due to her heart disease. 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 Still being worked up by primary team, no surgery planned as of yet #Hypertension #Hyperlipidemia #COPD on 2L chronically Recommendations: Please obtain her records from [facility] for any echos, or cardiac consultations/testing. 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 AUB -postmenopausal bleeding, pelvic exam limited but unremarkable, given recent weight loss and poor appetite, symptoms c/f AUB-M - MRI ordered by primary team, will follow up and assess for endometrial biopsy - No active bleeding noted at bedside, recommend pad counts (notify [facility] team if >2pad/hr over 2hrs) Colovesical/Colovaginal [...] vaginal bleeding. Pelvic MRI without evidence of MANGA ARTIST cancer. She should have an endometrial biopsy. If she is having surgery this hospitalization will perform while hospitalized, otherwise would do as an outpatient. We will be available if needed for surgery. Eric Osorio MD Subjective 72 y.o with h/o left breast cancer, HTN, COPD (on 2L NC at home), T2DM, chronic thrombocytopenia and anemia who is a transferred from [facility] for left lower quadrant abdominal pain [...] than 70 and non-responsive or NPO HYDROcodone-acetaminophen ([place]) 5-325 mg tablet Take 1 tablet by [...] found for: "LACTATE" documented in this encounter [facility] Work Phone: 09-22-2023 History and physical note [...] pain over the last 4 months. At [facility] a CT scan revealed chronic inflammation with bladder wall thickening, large diverticula with stool in sigmoid colon, and a likely benign mass in the spleen (present since previous scan in 2013). The scan was not able to exclude colovesical or colovaginal fistula. Patient had a colonoscopy several weeks ago at [facility] for work-up of the abdominal pain [...] than 70 and non-responsive or NPO HYDROcodone-acetaminophen ([place]) 5-325 mg tablet 1 tablet, oral, Every [...] was refused from a surgical intervention at [facility] which sounds like it may have been due to her heart disease. 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 Still being worked up by primary team, no surgery planned as of yet #Hypertension #Hyperlipidemia #COPD on 2L chronically Recommendations: Please obtain her records from [facility] for any echos, or cardiac consultations/testing. Start [...] included. Colorectal Surgery Consult H&P Poli Ramirez [phone] Consults Reason for admission: We were consulted [...] appendectomy who presents as a transfer from [facility] due to left lower quadrant abdominal pain suspicious for colovesical/colovaginal fistula and diverticulitis on CT. Patient reports left lower quadrant abdominal pain for the last 4 months. Pain worsened 2 nights ago at which time she presented to [facility]. Patient also reports 4 weeks ago she began having vaginal bloody discharge and dark brown/red urine with dysuria. Patient denies any difficulty urinating however she endorses the vaginal discharge/urine has a foul odor to it. Patient had a colonoscopy several weeks ago at [facility] for work-up of the abdominal pain [...] 10 years that was reportedly normal. At [facility] a CT scan revealed chronic inflammation with [...] pancytopenia who presents as a transfer from [facility] due to left lower quadrant abdominal pain suspicious for colovesical/colovaginal fistula and diverticulitis on CT. Physical exam and imaging (review radiology) is suspicious for fistula. Will work on medical optimization and acquiring outside hospital colonoscopy results for further work-up. Will engage Dr. Apple for optimization, appreciate [facility]. Neuro: Continue current pain regimen with IV [...] Dr. Deepak Brenner MD, MD Colorectal Surgery [facility] Service Pager [phone] [facility] ACUTE CARE SURGERY - HISTORY AND PHYSICAL / CONSULT Patient Name: Ploi Ramirez Admit Date: [id number] : 1950 AGE: 72 y.o. GENDER: female TODAY'S ASSESSMENT AND PLAN OF CARE: NPO w/ IVF IV ceftriaxone and metronidazole Pain and nausea control as needed Interdisciplinary care with Colorectal Surgery for further workup including imaging and/or colonoscopy Gina Rush MD [facility] [id number] CHIEF COMPLAINT/REASON FOR CONSULT: Poli Ramirez is a 72 yo F, medical history significant for HTN, HLD, COPD (on 2L NC at home), T2DM, left breast cancer (ER positive, T1c, N0, cM0) s/p left lumpectomy, pancytopenia, and open cholecystectomy, appendectomy, who was transferred from [facility] for an intraabdominal abscess, diverticulitis, and [...] a colonoscopy a few weeks ago at [facility] but was told they did not reach the ileocecal valve due to an obstructing mass and no biopsies were taken. She adds she was referred to a surgeon at [facility] but says "the doctor refused surgery because [...] chemoprophylaxis, full code. documented in this encounter [facility] Work Phone: 09-15-2023 Discharge summary Note Date/Time September 15, 2023 1:09am [facility] Medical Records Department [address] [place] [address] Emergency Department Summary 09/15/23 MR#: [id number] Acct: [id number] Name: POLI RAMIREZ Rep #:[id number] : 1950 72 From: Calvin Hester DO PCP: Dr. Jonathan Dillard Sr., DO Status:R EG ER Location: ED ADDENDUM by Dr. Jerad Thomas MD on 09/15/23 at 1326 Patient was turned over to me pending transfer. Physician at [facility] accepted. But there is no bed currently. [...] Patient is a 71-year-old female from the shelter with past medical history of COPD on oxygen 06/06 as well as congestive heart failure hypertension and diabetes. She has been evaluated over the past 4 to 5 months for recurrent abdominal pain and found to have chronic colitis. There is concern this could be related to a potential malignancy. The patient is on [place] secondary to this. Reportedly she recently was diagnosed with UTI as well and has been placed on antibiotics. Patient is complaining of persistent abdominal pain as well as vaginal bleeding [facility] Medical History Acute on chronic respiratory failure [...] bisacodyl 10 mg rectal suppository 10 mg LA DAILY PRN constipation 11/11/22 [History Last Taken [...] surgery Hx of cholecystectomy Social History housing: shelter Smoking Status: Former smoker alcohol intake: never [...] reported the pain has been controlled with [place] and now is no longer controlling her [...] case was discussed with Dr. Landon/surgery from [facility]. She agrees to accept the patient [...] (Auto) 70.5 H Lymph % (Auto) 19.5 Morgan % (Auto) 7.8 Eos % (Auto) 0.8 [...] Clarity Clear Urine pH 6.0 Ur Specific Eaton 1.010 Urine Protein 30 H Urine Glucose [...] EDT , Management Discussion w/another healthcare provider: Clerical Stock Inspector and Other Discharge Plan Triage Chief Complaint: Abd Pain ED Provider: Calvin Hester Dx/Rx/DC Orders Clinical Impression: Type 2 diabetes mellitus, Abscess of intestine, COPD (chronic obstructive pulmonary disease), Chronic anemia Prescriptions: No Action bisacodyl 10 mg suppository 10 mg LA DAILY PRN (Reason: constipation) cranberry 400 mg [...] Disposition Disposition: Acute Care Hospital Discharge Location: [facility] What to do if you have Problems For any increased pain, shortness of breath, bleeding, nausea or vomiting, chestpain, or any unexpected problems, contact your Primary Care Provider. Call [facility] ([phone]) or report to the closest Emergency Room. Call 911 if necessary. 09/15/23 0535 <Electronically signed by Calvin Hester DO> Cosigner Signature (if applicable): CC: Dr. Jonathan Dillard Sr., DO ~ Signed [facility] Work Phone: [phone] Evaluation + Plan note Future Scheduled Tests Radiology* MRI Pancreas 08/19/23 [facility] 10-04-2023 Note ORIGINAL EXAMINATION: BARIUM ENEMA08/17/2023 [...] Sign Date: 08/17/2023 3:50:07 PM Ordering Provider: [facility]10-02-2023 Hospital Discharge instructions Patient Education [...] including vitamins, herbs, eye drops, creams, and vews-ede-yvhvjhh medicines. Any blood disorders you have. Any [...] provider tells you to take them. ?Taking fyuo-mnl-eciswwx medicines, vitamins, herbs, and supplements. Follow instructions [...] Document Reviewed: 03/06/2019 Elsevier Patient Education 2020 [employer]. 08/15/2023 12:07:59 Barium Enema Barium Enema A [...] including vitamins, herbs, eye drops, creams, and wgou-spu-ylfczbj medicines. Any blood disorders you have. Any [...] provider tells you to take them. ?Taking hzgz-pmv-nmhtnbt medicines, vitamins, herbs, and supplements. Follow instructions [...] 10/28/2001 Document Revised: 03/06/2019 Document Reviewed: 03/06/2019 [employer] Patient Education 2020 [employer]. 08/15/2023 12:02:48 Monitored Anesthesia Care, Care After [...] before eating solid foods. General instructions Take zhil-bqm-swpvvpv and prescription medicines only as told by [...] 02/20/2017 Document Revised: 01/29/2019 Document Reviewed: 02/20/2017 [employer] Patient Education 2020 [employer]. 08/15/2023 12:02:43 Colonoscopy, Adult, Care After Colonoscopy, [...] a slower pace than normal. ?Eat soft, accc-cj-jcphxc foods. Take aqlc-bfj-hezwavn or prescription medicines only as told by [...] 06/14/2005 Document Revised: 08/23/2018 Document Reviewed: 01/11/2017 [employer] Patient Education 2020 [employer]. Follow Up Care 08/09/2023 08:04:53 With:MARK JEREZ Address: [address] [place] [phone] Business (1) When: Unknown Comments:KEEP YOUR APPOINTMENT FOR YOUR MRI ON TUESDAY AT [address] JEREZ WOULD LIKE POLI TO HAVE A BARIUM EMEMA ON TUESDAY. THE ORDER IS IN THE FOLDER. PLEASE CALL DR. JEREZ'S OFFICE TO GET THE ORDERS FOR A PREP. PLEASE CALL THE NUMBER ON THE ORDER TO SCHEDULE THE BARIUM ENEMA [phone]. [facility] 10-02-2023 Evaluation + Plan noteExtracted from: Title:Clinical Document Author:MARK JEREZ Date:08/15/23 [facility] ADMISSION HISTORY AN D PHYSICIAL CHIEF COMPLAINT: HISTORY OF PRESENT ILLNESS: REVIEW OF SYSTEMS: ACTIVE PROBLEMS: (32) Anemia (795865462) Arthritis (3100184) Benign colon polyp (6599507431) Breast cancer (192956383) Cervical spine fracture (954295447) Chest pain (51199806) Chronic anemia (500639724) Chronic back pain (040997687) COPD (78676135) Dependence on wheelchair (245800706) Diabetes mellitus type 2 (443186314) Diabetic neuropathy (833412310) Diarrhea (040047158) Dysphagia (82093801) Edema of both lower extremities (907480532) Encounter for surgical aftercare following surgery of nervous system (773390411) General weakness (06979143) GERD (gastroesophageal reflux disease) ([id number]) Glasses (4610373579) Goiter (3260049) Hard of hearing (098681738) Heart attack (05180037) History of radiation exposure (434324647) Hx of thrombocytopenia (536413321) Hyperlipidemia (70852346) Hypertension, essential (94819351) Incontinence of urine (6080933880) Osteoarthritis (9834453313) Oxygen dependent (5469359708) Pancreatic cyst (43759523) Rheumatic fever (67210624) Urinary incontinence (7473152274) MEDICATIONS: Active Inpt Meds: None Active PRN Meds: None One Time Meds: None Active IV Meds: Lactated Ringers Infusion 1,000 mL (LR 1,000 mL) Start: 08/15/23 10:41:00 EDT, Rate: 50 mL/hr, 08/15/23 10:41:00 EDT ALLERGIES: (2) Flexeril Zanaflex FAMILY HISTORY: SOCIAL HISTORY: PHYSICAL EXAM: VITALS: MnzestEnyiNSKyixsQYGwV2SCQ0BnqzVy(kg) 08/15 10:1936.7--482202NR76/02 95.0 08/15 95.0 24 Hr Tmax: 36.7 [...] LABS: 36hr Labs 08/15 1041 Blood Glucose, Gppbpvppx625X Blood Glucose, Dhcxscjeo133B DIAGNOSTICS: IMPRESSION: PLAN: History and Physical Update I have examined the patient; reviewed the H&P and there are no changes to the H&P unless noted below. Future Appointments Appointment Date:08/17/2023 10:30:00 AM Scheduled Provider: Location:[facility] Appointment Type:XR Barium Enema Complete Appointment Date:08/19/2023 02:30:00 PM Scheduled Provider: Location:[facility] Appointment Type:MRI Pancreas Future Scheduled Tests Radiology* XR Barium Enema Complete 08/17/23 * MRI Pancreas 08/19/23 [facility] 10-02-2023 Summary of episode note Discharge Instructions Thank you for allowing [facility] to assist you with your healthcare needs. The following is importantdischarge information regarding your hospital visit. Your Care Team BARBER CARLISLE What to do next Scheduled Follow-Up Appointments Appointment Type When Where Contact InformationMRI Pancreas 08/19/2023 02:30 PM [facility] Radiology [phone] Follow Up Appointments Follow Up with MARK JEREZ When Why: KEEP YOUR APPOINTMENT FOR YOUR MRI ON TUESDAY AT [address] JEREZ WOULD LIKE POLI TO HAVE A BARIUM EMEMA ON TUESDAY. THE ORDER IS IN THE FOLDER. PLEASE CALL DR. JEREZ'S OFFICE TO GET THE ORDERS FOR A PREP. PLEASE CALL THE NUMBER ON THE ORDER TO SCHEDULE THE BARIUM ENEMA [phone]. Where: [address] [place] [address] [phone] Business (1) The Following Activity and Diet [...] including vitamins, herbs, eye drops, creams, and ugwi-bah-hgufvyf medicines. Any blood disorders you have. Any [...] tells you to take them. ? Taking whux-hdv-cwidhhg medicines, vitamins, herbs, and supplements. Follow instructions [...] 10/28/2001 Document Revised: 03/06/2019 Document Reviewed: 03/06/2019 [employer] Patient Education 2020 [employer]. Barium Enema A barium enema is a [...] including vitamins, herbs, eye drops, creams, and usde-zlc-lcyzmft medicines. Any blood disorders you have. Any [...] tells you to take them. ? Taking zexc-fwn-zoarvat medicines, vitamins, herbs, and supplements. Follow instructions [...] 10/28/2001 Document Revised: 03/06/2019 Document Reviewed: 03/06/2019 [employer] Patient Education 2020 [employer]. Monitored Anesthesia Care, Care After These instructions [...] before eating solid foods. General instructions Take atsr-vun-jmctups and prescription medicines only as told by [...] 02/20/2017 Document Revised: 01/29/2019 Document Reviewed: 02/20/2017 [employer] Patient Education 2020 [employer]. Colonoscopy, Adult, Care After This sheet gives [...] slower pace than normal. ? Eat soft, oofb-ai-zateqp foods. Take bfdp-gdc-klrdgrx or prescription medicines only as told by [...] 06/14/2005 Document Revised: 08/23/2018 Document Reviewed: 01/11/2017 [employer] Patient Education 2020 [employer] Additional Information VACCINATE! IT SAVES LIVES! Members of the community who have not yet received the COVID-19 vaccine and would like to receive it can visit one of [facility] vaccine clinics. There are many vaccine clinic locations within the [facility]. For locations and available times, please visit [email or web address] It is important to note that some COVID mobile vaccine clinics are held outdoors and may be canceled in rainy or stormy conditions. To learn more about pediatric vaccinations (ages 5-11), we invite you to visit the [facility] webpage. [email or web address]/pages/2378-Baphu-Fwdlahxdvgq-Ytrqmskbmz-Snmew-Wwk stions.htmlTo learn more about the COVID-19 vaccine, we invite you to visit the CDC website for a list of frequently asked questions.https://www.cdc.gov/coronavirus/2019-ncov/vaccines/faq.html [facility] Patient Portal Access Instructions: Stay connected with your healthcare team and access your personal medical information anytime with the [facility] Patient Portal. Please follow the directions below to create your [facility] account: 1.Access the email account you provided upon registration to the hospital/physician office.2.Look for an invitation email from [facility].3.Open the email and access the invitation link: AcceptInvitation to [facility].4.Fill in the required quijano to create your account. To access your account, visit [email or web address]. Click the blue button labeled "Access Patient Portal" and then log in with the username and password that you created in the steps above. You will be able to view your test results, lab results, a summary of your visits, upcoming appointments and more. There is also a convenient messaging option where you can send secure messages to your TotalTakeoutvider. In addition, you will have the ability to download any documents or summaries to your computer and/or send the information securely to a physician. Remember that your healthcare information is confidential, so carefully consider who you will allowto register on the [facility] Patient Portal for access to your information. You can also access the [facility] Patient Portal on the [facility] marcy. Simply click on "Patient Portal" and then log into your account. If you would like to receive a full copy of your medical records, please contact the [facility] Medical Records Department by calling [phone], Tuesday through Tuesday between 8 a.m. and [...] Call your local pharmacy or go to http://[employer]/5S9Tq4w to find one close to you.3.Make use of household items: Use cat litter or old coffee grounds to dispose medications if other options arenot available. Mix your drugs with these household products, seal them in an airtight container andthrow it into the garbage. Call [facility]: [phone] to be sure your drugs can be [...] that I should contact my d octor. Patient/Post Production Assistant Signature: Date/Time: Relationship to Patient: Witness Name/Signature: Date/Time: [facility]10-02-2023 Nurse Progress note Attempted colonoscopy. Dr. Jerez ordered a Barium Enema. Contracts Intern X-Rays taken. Radiologist stated tomuch air for a Barium Enema today. Dr. Jerez notified. Orders received. Digitally Signed by Amy Watters RN on 08/15/2023 11:54 AM [facility]10-02-2023 Note ORIGINAL HISTORY: Failed colonoscopy, stricture [...] Sign Date: 08/15/2023 12:08:09 PM [facility] Anesthesiology Consult note Patient: POLI RAMIREZ Age: 72 years Sex: Female : 1950 Associated Diagnoses: None Author: DELFIN RAM APRN-REGIONAL ECONOMIST Assessment Postanesthesia assessment Vitals: Vital signs from [...] by DELFIN RAM on 08/15/2023 11:22 AM [facility]10-02-2023 Anesthesiology Consult note Patient: POLI RAMIREZ [...] list: Medical Chronic anemia / SNOMED CT 213938374 / Confirmed Chronic back pain / SNOMED CT 374949314 / Confirmed COPD / SNOMED CT 30353258 / Confirmed Hypertension, essential / SNOMED CT 08692742 / Confirmed Cervical spine fracture / SNOMED CT 293166560 / Confirmed GERD (gastroesophageal reflux disease) / SNOMED CT [id number]-WX439FH13BV8 / Confirmed Goiter / SNOMED CT 9189871 / Confirmed Hyperlipidemia / SNOMED CT 83050303 / Confirmed Encounter for surgical aftercare following surgery of nervous system / SNOMED CT 314234441 / Confirmed Incontinence of urine / SNOMED CT 6555458229 / Confirmed, Active Problems (32) Anemia Arthritis [...] incontinence Histories Past Medical History: Active COPD (69431289) Chronic back pain (992069064) Resolved H/O hypercholesterolemia (9659863570): Resolved. Hypernatremia (0722482114): Resolved. Family History: Heart disease Father Brother Arthritis Daughter Stroke Mother Cancer Sister HTN - Hypertension Mother GERD (gastroesophageal reflux disease) Daughter Diverticulitis Daughter Procedure history: Cervical discectomy (443890097) on 07/13/2022 at 71 Years. Comments: 08/09/2022 11:44 Viji Diaz WILLOW MACHINE OPERATOR ACDF None (050321847). Appendectomy (350359436). Comments: 08/11/2017 12:13 SHAMA BOLTON left water taken off Tubal ligation (901621554). Cholecystectomy (14482300). Arthroscopic knee operation (4811505388). Comments: 12/24/2019 13:16 SHAMA Gabriel right Lumpectomy of breast (6014498162). Comments: 12/24/2019 13:16 SHAMA Gabriel left Phacoemulsification of cataract with intraocular lens implantation (3060420374). Comments: 12/24/2019 13:16 SHAMA Gabriel both eyes Colonoscopy (353117691). Esophagogastroduodenoscopy (866397436). Cardiac catheter (6004217766). Comments: 12/24/2019 13:17 SHAMA Gabriel years ago [...] Signs(last 24 hrs) Last Charted Heart Rate Ywpohpbyg60 bpm (AUG 15 11:15) Resp Rate H 21br/min (AUG 15 10:19) OMB205 mmHg (AUG 15 11:11) WWW767 mmHg (AUG 15 11:11) BMI34.89 (OCT 02 10:29) Measurements from flowsheet : Measurements 08/15/2023 10:29 EDT Height 165 cm Admission Weight 95 kg Cecil Body Weight 56.91 kg BSA Admission 2.02 Body Mass Index 34.89 kg/m2 08/15/2023 10:19 EDT Height 165 cm Admission Weight 95 kg Cecil Body Weight 56.91 kg Admission Body Mass [...] mg mg 08/15/2023 11:12 EDT SN - AR - Medication glucagon recombinant 1 mg SN - AR - Route of Administration Intravenous SN - AR - By (Single) SN - AR - By (Single) SN - AR - Time Administered 08/15/2023 11:11 08/15/2023 11:11 [...] propofol 50 mg mg 08/15/2023 11:01 EDT [place] History and Physical 08/15/2023 11:00 EDT SN [...] Surgeon SN - CAt - Role Performed Take Away Worker 1 SN - CAt - Role Performed Automotive Leasing Sales Representative SN - CAt - Role Performed REGIONAL ECONOMIST 08/15/2023 11:00 EDT Heart Rate Monitored 96 [...] Person #2 We May Share AALIYAH Oakley [phone] Designated Person #2 Relationship Daughter Height 165 cm Admission Weight 95 kg Cecil Body Weight 56.91 kg BSA Admission 2.02 [...] Method Explanation, Printed materials Preferred Spoken Language Burmese Preferred Written Language Burmese Information Given by Patient Patient's Current Physicians Patient's Current Physicians Discharge To, Anticipated Home with family care Prev Test Positive/Diagnosis w/COVID-19 No Current Quarantine/Isolated any Illness No Any Contact with Sick Animals/Birds No Traveled Anywhere in Last 30 Days No N/A Personal Devices, Patient Valuables None Admission Note-Nursing Procedure/Therapy Intake 08/15/2023 10:19 EDT Height 165 cm Admission Weight 95 kg Cecil Body Weight 56.91 kg Admission Body Mass [...] Quadrants Present Skin Temperature Warm Skin Description [place], Dry Skin Integrity Intact Mucous Membrane Color [place] Characteristics of Speech Clear Level of Consciousness [...] Allergies Yes Anesthesia Extension Set Applied Yes Insurance Sales Supervisor On Yes Colon Prep Results Excellent Consent [...] Void 08/15/2023 9:00 . Assessment and Plan [place] Society of Anesthesiologists (ASA) physical status classification: Class IV. Anesthetic Preoperative Plan Anesthetic technique: MAC. Informed consent: signed by patient. Digitally Signed by DELFIN RAM on 08/15/2023 11:21 AM [facility]10-02-2023 Anesthesiology Consult note Patient: POLI RAMIREZ [...] by DELFIN RAM on 08/15/2023 11:19 AM [facility]10-02-2023 Note [place] ADMISSION HISTORY AND PHYSICIAL CHIEF COMPLAINT: HISTORY OF PRESENT ILLNESS: REVIEW OF SYSTEMS: ACTIVE PROBLEMS: (32) Anemia (599171992) Arthritis (7189090) Benign colon polyp (2686179898) Breast cancer (739614117) Cervical spine fracture (364546618) Chest pain (82615872) Chronic anemia (061366499) Chronic back pain (813134105) COPD (45532889) Dependence on wheelchair (792814339) Diabetes mellitus type 2 (527375443) Diabetic neuropathy (404352723) Diarrhea (188236852) Dysphagia (39473590) Edema of both lower extremities (089102557) Encounter for surgical aftercare following surgery of nervous system (816822004) General weakness (16056034) GERD (gastroesophageal reflux disease) ([id number]) Glasses (9967577354) Goiter (7617958) Hard of hearing (799560938) Heart attack (73353994) History of radiation exposure (859147351) Hx of thrombocytopenia (398069702) Hyperlipidemia (44403949) Hypertension, essential (63852211) Incontinence of urine (5981204716) Osteoarthritis (1823189935) Oxygen dependent (9599271331) Pancreatic cyst (90047036) Rheumatic fever (98945403) Urinary incontinence (4547126593) MEDICATIONS: Active Inpt Meds: None Active PRN Meds: None One Time Meds: None Active IV Meds: Lactated Ringers Infusion 1,000 mL (LR 1,000 mL) Start: 08/15/23 10:41:00 EDT, Rate: 50 mL/hr, 08/15/23 10:41:00 EDT ALLERGIES: (2) Flexeril Zanaflex FAMILY HISTORY: SOCIAL HISTORY: PHYSICAL EXAM: VITALS: OahgvcJfwjFXYepbcJJZtX6TSR0VgjoId(kg) 08/15 10:1936.7--459000KE25/02 95.0 08/15 95.0 24 Hr Tmax: 36.7 [...] LABS: 36hr Labs 08/15 1041 Blood Glucose, Xknwexfha522A Blood Glucose, Pqwyyhwqb857M DIAGNOSTICS: IMPRESSION: PLAN: History and Physical Update I have examined the patient; reviewed the H&P and there are no changes to the H&P unless noted below. Digitally Signed by MARK JEREZ MD on 08/15/2023 11:05 AM [facility]08-31-2023 Discharge summary Author Shahnaz [facility] July 14, 2023 7:47pm Note Date/Time July 14, 2023 3: 43pm [facility] Medical Records Department [address] [place] [address] Emergency Department Summary 07/14/23 MR#: [id number] Acct: [id number] Name: POLI RAMIREZ Rep #:[id number] : 1950 72 From: Shahnaz Georges PCP: [...] DNR CCA. She is a resident of [facility]. She notes that she is mostly wheelchair-bound but can walk short distances. Had a neck fracture earlier thisyear. [facility] Medical History Acute on chronic respiratory failure [...] bisacodyl 10 mg rectal suppository 10 mg LA DAILY PRN 11/11/22 [History Last Taken Unknown] [...] surgery Hx of cholecystectomy Social History housing: shelter Smoking Status: Former smoker alcohol intake: never [...] Patient isalso prescribed a short course of [place] for pain control. Is given first dose [...] 76.9 H Lymph % (Auto) 14.7 L Morgan % (Auto) 6.5 Eos % (Auto) 1.3 [...] Clarity Clear Urine pH 6.0 Ur Specific Eaton 1.020 Urine Protein 15 H Urine Glucose [...] Action bisacodyl 10 mg suppository 10 mg LA DAILY PRN cranberry 400 mg capsule 400 [...] your Primary Care Provider. Call [facility] ([phone]) or report to the closest Emergency Room. Call 911 if necessary. 07/14/231946 <Electronically signed by Shahnaz Way DO> Cosigner Signature (if applicable): CC: Jonathan Dillard MD ~ Signed [facility] Work Phone: 1(759) 157-496406-06-[address] Vela [facility] April 19, 2023 7:53pm Note Date/Time April 19, 2023 6:13p m [facility] Medical Records Department [address] [place] [address] Emergency Department Summary 04/19/23 MR#: [id number] Acct: [id number] Name: POLI RAMIREZ Rep #:[id number] : 1950 72 From: Alejandra Vela DO PCP: Gilma STUBBS, Jonathan Status:REG ER Location: ED HPI HPI - GI History of Present Illness Chief Complaint: Abd Pain Narrative Narrative: 72-year-old female presenting with left lower quadrant abdominal pain. She states this has been present off and on for weeks. She states that the shelter she is at she gets Tylenol for this and it goes away but over the last few days the Tylenol is not helping. She has nausea without vomiting. She denies constipation. She states she has loose stools its not quite diarrhea. No blackor bloody stools. She states that at times there is right-sided abdominal pain. She has not had a fever at home. [facility] Medical History Acute on chronic respiratory failure [...] bisacodyl 10 mg rectal suppository 10 mg LA DAILY PRN 11/11/22 [History Last Taken Unknown] [...] surgery Hx of cholecystectomy Social History housing: shelter Smoking Status: Former smoker alcohol intake: never [...] discussed with the on-call physician for the shelter. They wish to have the patient started [...] 81.7 H Lymph % (Auto) 11.2 L Morgan % (Auto) 5.5 Eos % (Auto) 0.9 [...] Clarity Clear Urine pH 6.5 Ur Specific Eaton 1.010 Urine Protein Negative Urine Glucose (UA) [...] Paper guidelines (Bailey, et al. JACR 2017; 14(8):8160-8329) recommend a low dose, non-contrast adrenal CT [...] Action bisacodyl 10 mg suppository 10 mg LA DAILY PRN cranberry 400 mg capsule 400 [...] your Primary Care Provider. Call [facility] ([phone]) or report to the closest Emergency Room. Call 911 if necessary. 04/19/231952 <Electronically signed by Alejandra Vela DO> Cosigner Signature (if applicable): CC: Jonathan Dillard MD ~ Signed [facility] Work Phone: 1(143) 898-542304-14-[address] Jaime [facility] February 25, 2023 11:39am Note Date/Time February 25, 2023 11: 37am [facility] Medical Records Department [address] [place] [address] Transfer to [facility] Care MR#: [id number] Acct: [id number] Name: POLI RAMIREZ Rep #:[id number] : 1950 72 From: Pratima Jaime MD [...] SERVICES PRIOR TO HIS/HER TRANSFER TO THE [facility]. 02/25/23 1139<Electronically signed by Pratima Jaime MD> [...] displaced fracture of cervical vertebra resulting in shelter placement, VTE presented to [facility] 02/18/23 due to unresponsiveness. She was found unresponsive by the shelter where she lived. She was found to [...] to schedule your hospital follow-up appointment (ph [phone]) -Weigh yourself every day. A sudden weight [...] Monique ; Krzysztof Pennington ; Viji Richey AUDIOMETRIC TECHNICIAN ; Rebecca Resendiz ; Thomas Ahumada ; [...] Continued bisacodyl 10 mg suppository 10 mg LA DAILY PRN cranberry 400 mg capsule 400 [...] to schedule your hospital follow-up appointment ( [phone])) Barber Carlisle NP, AUDIOMETRIC TECHNICIAN-C [Primary Care Provider] - Within 1 Week Disposition Disposition (needs filled in before D/C Order can be placed): [facility] 02/25/23 1136 <Electronically signed by Pratima Jaime MD> Cosigner Signature (if applicable): CC: AUDIOMETRIC TECHNICIAN-C Viji Richey; AUDIOMETRIC TECHNICIAN-C Barber Carlisle; Dr. Serge Banks MD; Dr. Hernando Padron MD; Dr. Ajit Mcgill DO; Dr. Thomas Ahumada MD; Dr. Rebecca Resendiz DO; Dr. Martín Monique MD; Dr. Krzysztof Pennington MD ~ [facility] Work Phone: 1(735) 298-602504-13-2023 Progress note Author Dr. Jaime [facility] February 24, 2023 3:21pm Note Date/Time February 24, 2023 3:2 1pm [facility] Medical Records Department [address] [place] [address] [place] [address] Progress Note - Hospitalist 02/24/23 1228 MR#: [id number] Acct: [id number] Name: POLI RAMIREZ Rep #:[id number] : 1950 72 From: Pratima Jaime MD PCP: Barber Carlisle AUDIOMETRIC TECHNICIAN-Andrea Status:ADM I N Location: [place] [address] Reason for Visit Reason for Visit: Diagnoses [...] 80.1 H, Lymph % (Auto) 12.6 L, Morgan % (Auto) 5.1, Eos % (Auto) 1.5, [...] documentation, 30minutes Charges/Coding Visit Charges Inpatient E&M: 20329 Subs Hosp L2 02/24/23 1521 <Electronically signed by Pratima Jaime MD> Cosigner Signature (if applicable): CC: ~ Signed [facility] Work Phone: 1(273) 227-571904-12-[address] Jaime [facility] February 23, 2023 2:03pm Note Date/Time February 23, 2023 10: 52am [facility] Medical Records Department [address] [place] [address] Progress Note - Hospitalist 02/23/23 1051 MR#: [id number] Acct: [id number] Name: POLI RAMIREZ Rep #:[id number] : 1950 72 From: Pratima Jaime MD PCP: ARLENE Edmonds Status:ADM I N Location: [place] [address] Reason for Visit Reason for Visit: Diagnoses [...] (Auto) 78.1 H, Lymph % (Auto) 13.7L, Morgan % (Auto) 6.1, Eos % (Auto) 1.5, [...] documentation, 30minutes Charges/Coding Visit Charges Inpatient E&M: 70291 Subs Hosp L2 02/23/23 1403 <Electronically signed by Pratima Jaime MD> Cosigner Signature (if applicable): CC: ~ Signed [facility] Work Phone: 1(153) 793-577904-12-[address] Gonzalez [facility] February 23, 2023 9:38am Note Date/Time February 23, 2023 9:3 8am [facility] Medical Records Department [address] [place] [address] Progress Note - Cardiology 02/23/2335 MR#: [id number] Acct: [id number] Name: POLI RAMIREZ Rep #:[id number] : 1950 72 From: Miroslava Gonzalez MD PCP: ARLENE Edmonds Status:ADM I N Location: [place] [address] Subjective Subjective No chest pain or shortness [...] (Auto) 78.1 H, Lymph % (Auto) 13.7L, Morgan % (Auto) 6.1, Eos % (Auto) 1.5, [...] 78.1 H, Lymph % (Auto) 13.7 L, Morgan % (Auto) 6.1, Eos % (Auto) 1.5, [...] Cosigner Signature (if applicable): CC: ~ Signed [facility] Work Phone: 1(613) 499-521204-11-[address] Banks [facility] February 22, 2023 2:54pm Note Date/Time February 22, 2023 8:3 6am [facility] Medical Records Department [address] [place] [address] Progress Note - [employer] Art Teacher 02/22/23 0832 MR#: [id number] Acct: [id number] Name: POLI RAMIREZ Rep #:[id number] : 1950 72 From: Serge Banks MD PCP: Barber Carlisle, AUDIOMETRIC TECHNICIAN-C Status:ADM I N Location: ICU ICU03-1 Assessment [...] 82.0 H, Lymph % (Auto) 9.4 L, Morgan % (Auto) 6.6, Eos % (Auto) 1.6, [...] affect normal Charges/Coding Visit Charges Inpatient E&M: 28566 Subs Hosp L2 02/22/23 1642 <Electronically signed by Serge Banks MD> Cosigner Signature (if applicable): CC: ~ Signed [facility] Work Phone: 1(362) 733-642004-11-[address] Gonzalez [facility] February 22, 2023 9:26am Note Date/Time February 22, 2023 9:2 6am [facility] Medical Records Department [address] [place] [address] Progress Note - Cardiology 02/22/23921 MR#: [id number] Acct: [id number] Name: POLI RAMIREZ Rep #:[id number] : 1950 72 From: Miroslava Gonzalez MD [...] 82.0 H, Lymph % (Auto) 9.4 L, Morgan % (Auto) 6.6, Eos % (Auto) 1.6, [...] 82.0 H, Lymph % (Auto) 9.4 L, Morgan % (Auto) 6.6, Eos % (Auto) 1.6, [...] Cosigner Signature (if applicable): CC: ~ Signed [facility] Work Phone: 1(195) 763-137704-11-[address] Jaime [facility] February 22, 2023 8:30am Note Date/Time February 22, 2023 8:3 0am [facility] Medical Records Department [address] [place] [address] Progress Note - Hospitalist 02/22/23819 MR#: [id number] Acct: [id number] Name: POLI RAMIREZ Rep #:[id number] : 1950 72 From: Pratima Jaime MD PCP: Barber Carlisle, AUDIOMETRIC TECHNICIAN-C Status:ADM I N Location: ICU ICU03-1 Reason [...] 82.0 H, Lymph % (Auto) 9.4 L, Morgan % (Auto) 6.6, Eos % (Auto) 1.6, [...] documentation, 30minutes Charges/Coding Visit Charges Inpatient E&M: 61773 Subs Hosp L2 02/22/23 0830 <Electronically signed by Pratima Jaime MD> Cosigner Signature (if applicable): CC: ~ Signed [facility] Work Phone: 1([phone]) [phone] Jaime [facility] February 21, 2023 4:59pm Note Date/Time February 21, 2023 7:0 7am [facility] Medical Records Department [address] [place] [address] Progress Note - Hospitalist 02/21/23706 MR#: [id number] Acct: [id number] Name: POLI RAMIREZ Rep #:[id number] : 1950 72 From: Pratima Jaime MD PCP: ARLENE Edmonds Status:ADM I N Location: ICU [place] [address] Reason for Visit Reason for Visit: Diagnoses [...] 79.0 H, Lymph % (Auto) 14.1 L, Morgan % (Auto) 5.3, Eos % (Auto) 0.7, [...] Bilirubin 0.80, AST 21, ALT 24, Alkaline Cjykkvwbjor21, Total Protein 5.6 L, Albumin 2.2 L, [...] documentation, 30minutes Charges/Coding Visit Charges Inpatient E&M: 14524 Subs Hosp L2 02/21/23 5603 <Electronically signed by Pratima Jaime MD> Cosigner Signature (if applicable): CC: ~ Signed [facility] Work Phone: [phone]) 210-362204-10-[address] Banks [facility] February 21, 2023 4:00pm Note Date/Time February 21, 2023 8:0 3am [facility] Medical Records Department [address] [place] [address] Progress Note - [employer] Art Teacher 02/21/23 0752 MR#: [id number] Acct: [id number] Name: POLI RAMIREZ Rep #:[id number] : 1950 72 From: Serge Banks MD [...] 79.0 H, Lymph % (Auto) 14.1 L, Morgan % (Auto) 5.3, Eos % (Auto) 0.7, [...] Bilirubin 0.80, AST 21, ALT 24, Alkaline Mktjvlunqln83, Total Protein 5.6 L, Albumin 2.2 L, [...] and affect normal Charges/Coding Procedures Hospitalists Procedures: 42287 Critial Care 1st Hr 02/21/23 1600 <Electronically signed by Serge Banks MD> Cosigner Signature (if applicable): CC: ~ Signed [facility] Work Phone: [phone]) 885-352604-10-[address] Gonzalez [facility] February 21, 2023 9:54am Note Date/Time February 21, 2023 9:5 4am [facility] Medical Records Department [facility] [place] [address] Progress Note - Cardiology 02/21/23 0951 MR#: [id number] Acct: [id number] Name: POLI RAMIREZ Rep #:[id number] : 1950 72 From: Miroslava Gonzalez MD PCP: Barber Carlisle AUDIOMETRIC TECHNICIAN-C Status:ADM I N Location: ICU ICU03-1 Subjective [...] 79.0 H, Lymph % (Auto) 14.1 L, Morgan % (Auto) 5.3, Eos % (Auto) 0.7, [...] Bilirubin 0.80, AST 21, ALT 24, Alkaline Diimtznlrwr50, Total Protein 5.6 L, Albumin 2.2 L, [...] 79.0 H, Lymph % (Auto) 14.1 L, Morgan % (Auto) 5.3, Eos % (Auto) 0.7, [...] Cosigner Signature (if applicable): CC: ~ Signed [facility] Work Phone: 1([phone]) 279-230604-10-2023 Consult note Author Armani Napier [facility] February 21, 2023 4:07am Note Date/Time February 21, 2023 4:0 7am [facility] Medical Records Department [address] [place] [address] [place] [address] Pharmacokinetic/Renal -Consult 02/21/23 0406 MR#: [id number] Acct: [id number] Name: POLI RAMIREZ Rep #:[id number] : 1950 72 From: Armani Valdez od PCP: Barber Carlisle AUDIOMETRIC TECHNICIAN-Andrea Status:ADM I N Y Location: ICU ICU03-1 [...] Signature (if applicable): Date CC: ~ Signed [facility] Work Phone: [phone]) 286-224704-09-[address] Monique [facility] February 20, 2023 4:59pm Note Date/Time February 20, 2023 4:37 pm [facility] Medical Records Department [address] [place] [address] Progress Note - [employer] Art Teacher 02/20/23 1634 MR#: [id number] Acct: [id number] Name: POLI RAMIREZ Rep #:[id number] : 1950 72 From: Martín Monique MD PCP: Barber Carlisle, AUDIOMETRIC TECHNICIAN-Andrea Status:ADM I N Location: ICU ICU03-1 Assessment [...] performed. [place] [address] Subjective Subjective Intubated and sedated on ventilator, [...] (Auto) 80.9 H, Lymph % (Auto) 11.6L, Morgan % (Auto) 6.4, Eos % (Auto) 0.2, [...] 6:54 EDT Reading Location ID and State: [address] [place] [address] Tel , Service support , Rhythm Strip Rhythm Strip: Sinus Rhythm Rate: 95 Ectopy: None Physical Exam Narrative 10 system exam done. Unchanged from yesterday. Charges/Coding Procedures Hospitalists Procedures: 00855 Critial Care 1st Hr 02/20/23 1659 <Electronically signed by Martín Monique MD> Cosigner Signature (if applicable): CC: ~ Signed [facility] Work Phone: [phone]) [phone] Gonzalez [facility] February 20, 2023 10:38am Note Date/Time February 20, 2023 10:3 8am [facility] Medical Records Department [address] [place] [address] [place] [address] Progress Note - Cardiology 02/20/23 1035 MR#: [id number] Acct: [id number] Name: POLI RAMIREZ Rep #:[id number] : 1950 72 From: Miroslava Gonzalez MD PCP: Barber Carlisle, AUDIOMETRIC TECHNICIAN-Andrea Status:ADM I N Location: ICU ICU03-1 Subjective [...] (Auto) 80.9 H, Lymph % (Auto) 11.6L, Morgan % (Auto) 6.4, Eos % (Auto) 0.2, [...] 80.9 H, Lymph % (Auto) 11.6 L, Morgan % (Auto) 6.4, Eos % (Auto) 0.2, [...] Cosigner Signature (if applicable): CC: ~ Signed [facility] Work Phone: 1(920) 362-183404-09-[address] Padron [facility] February 20, 2023 8:46am Note Date/Time February 20, 2023 7:12 am [facility] Medical Records Department [address] [place] [address] Progress Note - Hospitalist 02/20/23711 MR#: [id number] Acct: [id number] Name: POLI RAMIREZ Rep #:[id number] : 1950 72 From: Hernando Padron MD [...] (Auto) 80.9 H, Lymph % (Auto) 11.6L, Morgan % (Auto) 6.4, Eos % (Auto) 0.2, [...] 6:54 EDT Reading Location ID and State: [facility] [place] Tel , Service support , Rhythm Strip [...] 45 Minutes Charges/Coding Visit Charges Inpatient E&M: 25020 Subs Hosp L2 02/20/23 0846 <Electronically signed by Hernando Padron MD> Cosigner Signature (if applicable): CC: ~ Signed [facility] Work Phone: [phone] 706-110304-09-[address] Padron [facility] February 20, 2023 7:12am Note Date/Time February 19, 2023 5:15 pm [facility] Medical Records Department [address] [place] [address] Pharmacokinetic/Renal -Consult 02/19/23 1711 MR#: [id number] Acct: [id number] Name: POLI RAMIREZ Rep #:[id number] : 1950 72 From: Gretchen Lance PCP: [...] Date Hernando Padron MD CC: ~ Signed [facility] Work Phone: 1(300) 197-899604-08-[address] Monique [facility] February 19, 2023 1:55pm Note Date/Time February 19, 2023 10:4 7am [facility] Medical Records Department [address] [place] [address] Progress Note - [employer] Art Teacher 02/19/23 1047 MR#: [id number] Acct: [id number] Name: POLI RAMIREZ Rep #:[id number] : 1950 72 From: Martín Monique MD [...] performed. [place] [address], [address]. Subjective Subjective Subjective patient is mildly sedated [...] 79.0 H, Lymph % (Auto) 13.9 L, Morgan % (Auto) 6.5, Eos % (Auto) 0.2, [...] Cosigner Signature (if applicable): CC: ~ Signed [facility] Work Phone: 1(132) 526-995104-08-[address] Gonzalez [facility] February 19, 2023 11:57am Note Date/Time February 19, 2023 11:5 6am [facility] Medical Records Department [address] [place] [address] Consultation - Cardiology 02/19/23 1146 MR#: [id number] Acct: [id number] Name: POLI RAMIREZ Rep #:[id number] : 1950 72 From: Miroslava Gonzalez MD [...] intubated and unable to provide any history. [facility] Medical History (Updated 02/19/23 @ 11:53 by [...] bisacodyl 10 mg rectal suppository 10 mg LA DAILY PRN 11/11/22 [History Last Taken Unknown] [...] 00:[address] Rebecca Resendiz DO) housing: shelter Smoking Status: Former smoker alcohol intake: never [...] 79.0 H, Lymph % (Auto) 13.9 L, Morgan % (Auto) 6.5, Eos % (Auto) 0.2, [...] Gas Notified Whom Blood Gas Notified Time 1808 Rhythm Strip Rhythm Strip: Sinus Rhythm Rate: [...] 79.0 H, Lymph % (Auto) 13.9 L, Morgan % (Auto) 6.5, Eos % (Auto) 0.2, [...] Gonzalez MD> Cosigner Signature (if applicable): CC: AUDIOMETRIC TECHNICIAN-Andrea Richey; AUDIOMETRIC TECHNICIAN-C Barber Carlisle; Dr. Serge Banks MD; Dr. Hernando Padron MD; Dr. Ajit Mcgill DO; Dr. Thomas Ahumada MD; Dr. Rebecca Resendiz DO; Dr. Martín Monique MD; Dr. Krzysztof Pennington MD~ Signed [facility] Work Phone: [phone] Padron [facility] February 19, 2023 8:28am Note Date/Time February 19, 2023 7:11 am [facility] Medical Records Department [address] [place] [address] Progress Note - Hospitalist 02/19/23709 MR#: [id number] Acct: [id number] Name: POLI RAMIREZ Rep #:[id number] : 1950 72 From: Hernando Padron MD [...] 79.0 H, Lymph % (Auto) 13.9 L, Morgan % (Auto) 6.5, Eos % (Auto) 0.2, [...] 55 Minutes Charges/Coding Visit Charges Inpatient E&M: 41404 Subs Hosp L3 02/19/2328 <Electronically signed by Hernando Padron MD> Cosigner Signature (if applicable): CC: ~ Signed [facility] Work Phone: 1([phone]) [phone] Monique [facility] February 18, 2023 8:01pm Note Date/Time February 18, 2023 9:53 am [facility] Medical Records Department [address] [place] [address] Consultation - [employer] Art Teacher 02/18/2353 MR#: [id number] Acct: [id number] Name: POLI RAMIREZ Rep #:[id number] : 1950 72 From: Martín Monique MD [...] Monique MD> Cosigner Signature (if applicable): cc: AUDIOMETRIC TECHNICIAN-C Viji Richey; AUDIOMETRIC TECHNICIAN-C Barber Carlisle; Dr. Serge Banks MD; Dr. [...] Thank you for consulting [facility] for critical care. We will follow the patient with you.. Martín Monique MD [facility] HPI Consult Data Date of Consult: 02/18/23 HPI Narrative Reason for Consultation: Respiratory failure on mechanical ventilation, chronic hypercarbia HPI Narrative: POLI RAMIREZ, is a unfortunate 72-year-old woman who was at the shelter for rehab after neck fracture was found unresponsive at her shelter with SPO2 70s GCS 3.? No response [...] GERD, frequent falls, insomnia, obstructive sleep apnea, AR, generalized weakness, displaced fracture of the sixth and seventh cervical vertebrae, pancytopenia, history of breast cancer, nicotine dependence, osteoarthritis both shoulders, type 2 diabetes with diabetic neuropathy, impaired mobility, venous insufficiency, urinary incontinence. Her home medications were reviewed. Surgical history: Left breast lumpectomy, C-spine surgery, cholecystectomy. Family history is noncontributory.? Social history she is a former smoker. [facility] Medical History (Updated 02/18/23 @ 12:37 by [...] bisacodyl 10 mg rectal suppository 10 mg LA DAILY PRN 11/11/22 [History Last Taken Unknown] [...] 00:[address] Rebecca Resendiz DO) housing: shelter Smoking Status: Former smoker alcohol intake: never [...] 87.0 H, Lymph % (Auto) 6.6 L, Morgan % (Auto) 3.6, Eos % (Auto) 0.2, [...] Sl. Cloudy, Urine pH 5.0, Ur Specific Eaton 1.030, Urine Protein 100 H, Urine Glucose [...] 88.6 H, Lymph % (Auto) 4.5 L, Morgan % (Auto) 5.7, Eos % (Auto) 0.0, [...] ED MD MONIQUE Blood Gas Notified Time 4118 Rhythm Strip Rhythm Strip: Sinus Rhythm Rate: [...] 2:02 EDT , Charges/Coding Procedures Hospitalists Procedures: 70223 [facility] 1st Hr 02/18/23 1241 <Electronically signed by Martín Monique MD> Cosigner Signature (if applicable): CC: AUDIOMETRIC TECHNICIANGiancarlo Richey; ARLENE Carlisle; Dr. Serge Banks MD; Dr. Ajit Mcgill DO; Dr. Thomas Ahumada MD; Dr. Rebecca Resendiz DO; Dr. Martín Monique MD; Dr. Krzysztof Pennington MD~ Signed [facility] Work Phone: [phone]) [phone] Padron [facility] February 18, 2023 8:24am Note Date/Time February 18, 2023 7:16 am [facility] Medical Records Department [address] [place] [address] Progress Note - Hospitalist 02/18/23711 MR#: [id number] Acct: [id number] Name: POLI RAMIREZ Rep #:[id number] : 1950 72 From: Hernando Padron MD [...] 87.0 H, Lymph % (Auto) 6.6 L, Morgan % (Auto) 3.6, Eos % (Auto) 0.2, [...] Sl. Cloudy, Urine pH 5.0, Ur Specific Eaton 1.030, Urine Protein 100 H, Urine Glucose [...] 88.6 H, Lymph % (Auto) 4.5 L, Morgan % (Auto) 5.7, Eos % (Auto) 0.0, [...] Notified Whom ED Blood Gas Notified Time 0191 Radiography Diagnostic Testing: Radiology Impression Brain CT [...] 55 Minutes Charges/Coding Visit Charges Inpatient E&M: 09984 Subs Hosp L3 02/18/23 0824 <Electronically signed by Hernando Padron MD> Cosigner Signature (if applicable): CC: ~ Signed [facility] Work Phone: [phone] Consult note Author Armani Napier [facility] February 18, 2023 4:15am Note Date/Time February 18, 2023 4:15 am [facility] Medical Records Department [address] [place] [address] Pharmacokinetic/Renal -Consult 02/18/23413 MR#: [id number] Acct: [id number] Name: POLI RAMIREZ Rep #:[id number] : 1950 72 From: Armani Valdez od PCP: Barber Carlisle AUDIOMETRIC TECHNICIANGiancarlo Status:ADM I N Y Location: ICU ICU03-1 [...] Signature (if applicable): Date CC: ~ Signed [facility] Work Phone: 1(394) 842-871904-07-2023 History and physical note Author Dr. Resendiz [facility] February 18, 2023 1:48am Note Date/Time February 18, 2023 12:3 2am [facility] Medical Records Department [address] [place] [address] H&P Exam - Hospitalist 02/18/23 0029 MR#: [id number] Acct: [id number] Name: POLI RAMIREZ Rep #:[id number] : 1950 72 From: Rebecca Resendiz DO PCP: ARLENE Edmonds Status:ADM I N Location: ICU [place] [address] HPI - General General Date of Admission: 02/18/23 Date of Service: 02/18/23 Chief Complaint: Unresponsiveness HPI Narrative POLI RAMIREZ, is a 72 F who presented to the emergency department at [facility] secondary to unresponsiveness. The patient was found to be unresponsive by the shelter staff at where she lives. Upon presentation [...] EKG showed normal sinus rhythm with normal LA interval however she has slightly prolonged QTc. No signs of ischemic changes were noted. [facility] Medical History Anemia Atherosclerotic heart disease Chronic [...] bisacodyl 10 mg rectal suppository 10 mg LA DAILY PRN 11/11/22 [History Last Taken Unknown] [...] 00:[address] Rebecca Resendiz DO) housing: shelter Smoking Status: Former smoker alcohol intake: never [...] 87.0 H, Lymph % (Auto) 6.6 L, Morgan % (Auto) 3.6, Eos % (Auto) 0.2, [...] Sl. Cloudy, Urine pH 5.0, Ur Specific Eaton 1.030, Urine Protein 100 H, Urine Glucose [...] the morning Charges/Coding Visit Charges Inpatient E&M: 57250 Init Hosp L3 02/18/23 0148 <Electronically signed by Rebecca Resendiz DO> Cosigner Signature (if applicable): CC: ARLENE Carlisle; Dr. Rebecca Resendiz DO~ Signed [facility] Work Phone: 1(344) 532-712304-07-[address] Tsai [facility] February 18, 2023 12:19am Note Date/Time February 17, 2023 10:3 4pm [facility] Medical Records Department [address] [place] [address] Emergency Department Summary 02/17/23 MR#: [id number] Acct: [id number] Name: POLI RAMIREZ Rep #:[id number] : 1950 72 From: Ellis Tsai MD PCP: ARLENE Edmonds Status:REG E R Location: ED HPI History of Present Illness Chief Complaint: Unresponsive Informant: EMS Narrative Narrative: Patient brought from local shelter found unresponsive by shelter staff. Barely breathing, hypoxic in the 70s [...] [facility]. Last seen normal about 3 hours prior to evaluation here. Apparently she is in a shelter for rehab after a neck fracture. She does not have any collar or cervical spine hardware. EMS also states that family wasapparently there yesterday, and the shelter staff was suspicious that they may be in the drugs. [facility] Medical History (Updated 02/18/23 @ 00:06 by [...] bisacodyl 10 mg rectal suppository 10 mg LA DAILY PRN 11/11/22 [History Last Taken Unknown] [...] 87.0 H Lymph % (Auto) 6.6 L Morgan % (Auto) 3.6 Eos % (Auto) 0.2 [...] Sl. Cloudy Urine pH 5.0 Ur Specific Eaton 1.030 Urine Protein 100 H Urine Glucose [...] (Auto) Neut % (Auto) Lymph % (Auto) Morgan % (Auto) Eos % (Auto) Baso % [...] Color Urine Clarity Urine pH Ur Specific Eaton Urine Protein Urine Glucose (UA) Urine Ketones [...] Management Discussion w/another healthcare provider: Hospitalist and Clerical Stock Inspector (javi mcgill) Procedures Intubations Intubation Method: orotracheal [...] pulmonary disease) Disposition Disposition: Acute Care Hospital [facility] What to do if you have Problems For any increased pain, shortness of breath, bleeding, nausea or vomiting, chestpain, or any unexpected problems, contact your Primary Care Provider. Call [facility] ([phone]) or report to the closest Emergency Room. Call 911 if necessary. 02/18/23 0019 <Electronically signed by Ellis Tsai MD> Cosigner Signature (if applicable): CC: ARLENE Carlisle ~ Signed [facility] Work Phone: 1(215) 900-311604-07-[address] Tsai [facility] February 18, 2023 12:19am Note Date/Time February 17, 2023 10:3 4pm [facility] Medical Records Department [address] [place] [address] Emergency Department Summary 02/17/23 MR#: [id number] Acct: [id number] Name: POLI RAMIREZ Rep #:[id number] : 1950 72 From: Ellis Tsai MD PCP: ARLENE Edmonds Status:REG E R Location: ED HPI History of Present Illness Chief Complaint: Unresponsive Informant: EMS Narrative Narrative: Patient brought from local shelter found unresponsive by shelter staff. Barely breathing, hypoxic in the 70s [...] ox 60[facility] and patient not breathing. Last seen normal about 3 hours prior to evaluation here. Apparently she is in a shelter for rehab after a neck fracture. She does not have any collar or cervical spine hardware. EMS also states that family wasapparently there yesterday, and the shelter staff was suspicious that they may be in the drugs. [facility] Medical History (Updated 02/18/23 @ 00:06 by [...] bisacodyl 10 mg rectal suppository 10 mg LA DAILY PRN 11/11/22 [History Last Taken Unknown] [...] 87.0 H Lymph % (Auto) 6.6 L Morgan % (Auto) 3.6 Eos % (Auto) 0.2 [...] Sl. Cloudy Urine pH 5.0 Ur Specific Eaton 1.030 Urine Protein 100 H Urine Glucose [...] (Auto) Neut % (Auto) Lymph % (Auto) Morgan % (Auto) Eos % (Auto) Baso % [...] Color Urine Clarity Urine pH Ur Specific Eaton Urine Protein Urine Glucose (UA) Urine Ketones [...] 0:01 EDT Reading Location ID and State: [facility] / [place] Tel , Service support , Rhythm Strip Rhythm Strip: Sinus Rhythm Rate: 95 Ectopy: None EKG Initial EKG: Attestation: I personally reviewed and interpreted this EKG as follows: Interpretation: Sinus Rhythm, No Acute Injury Pattern and LBBB Prior EKG tracings: available for review Prior: Unchanged Management Discussion w/another healthcare provider: Hospitalist and Clerical Stock Inspector (javi mcgill) Procedures Intubations Intubation Method: orotracheal [...] pulmonary disease) Disposition Disposition: Acute Care Hospital [facility] What to do if you have Problems For any increased pain, shortness of breath, bleeding, nausea or vomiting, chestpain, or any unexpected problems, contact your Primary Care Provider. Call [facility] ([phone]) or report to the closest Emergency Room. Call 911 if necessary. 02/18/23 0019 <Electronically signed by Ellis Tsai MD> Cosigner Signature (if applicable): CC: ARLENE Carlisle ~ Signed [facility] Work Phone: 1(465) 575-557109-13-2022 Hospital Discharge instructions Patient Education 07/27/2022 11:52:16 [...] are safe for you. General instructions Take swcw-ael-nhzehnj and prescription medicines only as told by [...] 09/17/2005 Document Revised: 10/13/2018 Document Reviewed: 08/04/2017 [employer] Patient Education 2020 [employer]. Follow Up Care 07/11/2022 11:22:15 With:[facility] home [phone] skilled Address:Unknown When:1-2 days With:BARBER CARLISLE Address: [address] [facility] [place] [address] [phone] Business (1) When:1-2 days With:BYRON STUBBS, TRACE Sprague, Neurosurgery Address: [address] [facility] [address] [place] [address] [phone] When:08/10/2022 11:00:00 [facility] 09-13-2022 Note Discharge Instructions Thank you for allowing [facility] to assist you with your healthcare needs. [...] results to FREDY Edmonds Neck Xray at [facility], Ground floor Radiology Dept on 08/10/2022 [...] to have wound breakdown, please contact Dr. Mathtews's office immediately Keep incision dry until completely [...] Op 08/10/2022 11:00 AM EDT Neurosurgery [address] [phone] Follow Up Appointments Follow Up with BYRON STUBBS, TRACE Sprague, Neurosurgery When 08/10/2022 11:00 AM EDT Where: [address] [address] [phone] Follow Up with [facility] [phone] skilled When Within 1-2 days Follow Up with BARBER CARILSLE When Within 1-2 days Where: [address] [place] [address] [phone] Business (1) The Following Activity and Diet [...] The extended-release form of oxycodone is for kznxzk-uce-stjnh treatment of pain and should not be [...] against the law. Stop taking all other fsoxln-nde-cfmvl opioid pain medicines when you start taking [...] may report side effects to FDA at 5-405-IEX-0464. What other drugs will affect oxycodone? You [...] drugs may affect oxycodone. This includes prescription mqkuzte-qtf-rimtxrt medicines, vitamins, and herbal products. Not all [...] to ensure that the information provided by [employer]. ('Multum') is accurate, up-to-date, and complete, but no guarantee is made to that effect. Drug information contained herein may be time sensitive. K[employer]i information has been compiled for use by healthcare practitioners and consumers in the [place] and therefore [employer] does not warrant that uses outside of the [place] are appropriate, unless specifically indicated otherwise. [employer]iMes drug information does not endorse drugs, diagnose patients or recommend therapy. [employer]iMes drug information isan informational resource designed to [...] effective or appropriate for any given patient. [employer] does not assume any responsibility for any aspect of healthcare administered with the aid of information K[employer]i provides. The information contained herein is not intended to cover all possible uses, directions, precautions, warnings, drug interactions, allergic reactions, or adverse effects. If you have questions about the drugs you are taking, check with your doctor, nurse or pharmacist. Copyright 9675-3767 [employer]. Version: 14.02. Revision Date: 12/11/2020. Education Materials [...] are safe for you. General instructions Take nmjx-iuk-pqjevnq and prescription medicines only as told by [...] 09/17/2005 Document Revised: 10/13/2018 Document Reviewed: 08/04/2017 Else5to1 Patient Education 2020 [employer] Additional Information VACCINATE! IT SAVES LIVES! Members of the community who have not yet received the COVID-19 vaccine and would like to receive it can visit one of [facility] vaccine clinics. There are many vaccine clinic locations within the [facility]. For locations and available times, please visit https://gettheshot.coronavirus.[place].gov/. It is important to note that some COVID mobile vaccine clinics are held outdoors and may be canceled in rainy or stormy conditions. To learn more about pediatric vaccinations (ages 5-11), we invite you to visit the [facility] webpage. https://www.[facility].org/pages/0405-Mvalq-Abjiowxyczj-Janztrrnsn-Wisms-Ggg stions.htmlTo learn more about the COVID-19 vaccine, we invite you to visit the [facility] website for a list of frequently asked questions. https://Dovetail/assets/Cpghmafv-wqs-Oaqkwrwo/ierdc-Wzkhskh-Nxgditwscy _Asked-Questions.pdf [facility] Patient Portal Access Instructions: Stay connected with your healthcare team and access your personal medical information anytime with the [facility] Patient [facility].If you would like a full copy of your medical records, please contact the [facility] Medical Records Department, Tuesday through Tuesday between 8a.m. and 4:30p.m. Please follow the directions below to access the portal: 1.Access the email account you provided upon registration to the [facility].2.Look for an invitation email from [facility].3.Open the email and access the invitation link: Accept Invitation to [facility]4.Fill in the required quijano to create your account. Sign into [email or web address] with your username and password that you [...] you will allow to register on the [facility] Patient Portal for access to your information. You can also access the [facility] Patient Portal on the [employer] marcy. Simply click on "Health Records" under "HealthAudioCaseFiles" and then click on the Vaishali logo. [...] Call your local pharmacy or go to http://bit.[employer]/9I1Ck6g to find one close to you.3.Make use of household items: Use cat litter or old coffee grounds to dispose medications if other options arenot available. Mix your drugs with these household products, seal them in an airtight container andthrow it into the garbage. Call [facility]: [phone] to be sure your drugs can be [...] that I should contact my d octor. Patient/Post Production Assistant Signature: Date/Time: Relationship to Patient: Witness Name/Signature: Date/Time: [facility]nh61-65-3854 Note Discharge Instructions Thank you for allowing [...] results to FREDY Edmonds Neck Xray at [facility], [facility] floor Radiology Dept on 08/10/2022 at [...] Op 08/10/2022 11:00 AM EDT Neurosurgery [address] [address] Follow Up Appointments Follow Up with BYRON STUBBS, TRACE Sprague, Neurosurgery When 08/10/2022 11:00 AM EDT Where: [address] [address] [phone] Follow Up with [facility] [phone] skilled When Within 1-2 days Follow Up with BARBER CARLISLE When Within 1-2 days Where: [address] [facility] [place] [phone] Business (1) The Following Activity and Diet [...] to receive it can visit one of [facility] vaccine clinics. There are many vaccine clinic locations within the [facility]. For locations and available times, please visit https://gettheshot.coronavirus.[place].gov/. It is important to note that some COVID mobile vaccine clinics are held outdoors and may be canceled in rainy or stormy conditions. To learn more about pediatric vaccinations (ages 5-11), we invite you to visit the [facility] webpage. https://www.[facility].org/pages/4059-Mffjj-Kwvgvkfzfyp-Nalnobpkps-Stwky-Uir stions.htmlTo learn more about the COVID-19 vaccine, we invite you to visit the [facility] website for a list of frequently asked questions. https://[email or web address]/assets/Oadedggo-sod-Btaghips/ztoer-Bjundtu-Koyjlgkmvp _Asked-Questions.pdf [facility] Patient Portal Access Instructions: Stay connected with your healthcare team and access your personal medical information anytime with the [facility] Patient Portal.If you would like a full copy of your medical records, please contact the [facility] Medical Records Department, Tuesday through Tuesday between 8a.m. and 4:30p.m. Please follow the directions below to access the portal: 1.Access the email account you provided upon registration to the hospital.2.Look for an invitation email from [facility].3.Open the email and access the invitation link: Accept Invitation to [facility]4.Fill in the required quijano to create your account. Sign into [email or web address] with your username and password that you [...] you will allow to register on the [facility] Patient Portal for access to your information. You can also access the [facility] Patient Portal on the [employer]. Simply click on "Health Records" under "HealthData" and then click on the [employer] logo. HOW TO SAFELY DISPOSE OF PRESCRIPTION [...] Call your local pharmacy or go to http://[employer]/2K3Di4m to find one close to you.3.Make use of household items: Use cat litter or old coffee grounds to dispose medications if other options arenot available. Mix your drugs with these household products, seal them in an airtight container andthrow it into the garbage. Call [facility]: [phone] to be sure your drugs can be [...] that I should contact my d zulmaor. Patient/Post Production Assistant Signature: Date/Time: Relationship to Patient: Witness Name/Signature: Date/Time: [facility] HospitalCvwmiree01-28-7430 Note Discharge Instructions Thank you for allowing [...] results to FREDY Edmonds Neck Xray at [facility], Ground floor Radiology Dept on 08/10/2022 [...] Op 08/10/2022 11:00 AM EDT Neurosurgery [address] [address] Follow Up Appointments Follow Up with BYRON STUBBS, TRACE Sprague, Neurosurgery When 08/10/2022 11:00 AM EDT Where: [address] [address] [phone] Follow Up with [facility] [phone] skilled When Within 1-2 days Follow Up with BARBER CARLISLE When Within 1-2 days Where: [address] [place] [address] [phone] Business (1) The Following Activity and Diet [...] to receive it can visit one of [facility] vaccine clinics. There are many vaccine clinic locations within the [facility]. For locations and available times, please visit https://gettheshot.coronavirus.[place].[facility]/. It is important to note that some COVID mobile vaccine clinics are held outdoors and may be canceled in rainy or stormy conditions. To learn more about pediatric vaccinations (ages 5-11), we invite you to visit the [facility] webpage. https://www.[facility].org/pages/2010-Wbvrj-Hcumxzwhayp-Hcqnpjsunh-Nduio-Rhd stions.htmlTo learn more about the COVID-19 vaccine, we invite you to visit the [facility] website for a list of frequently asked questions. https://[email or web address]/assets/Dcuvrptr-mxp-Gxclhzrl/yoeqm-Fajyzdg-Oivokzufgb _Asked-Questions.pdf [facility] Patient Portal Access Instructions: Stay connected with your healthcare team and access your personal medical information anytime with the [facility] Patient Portal.If you would like a full copy of your medical records, please contact the [facility] Medical Records Department, Tuesday through Tuesday between 8a.m. and 4:30p.m. Please follow the directions below to access the portal: 1.Access the email account you provided upon registration to the [facility].2.Look for an invitation email from [facility].3.Open the email and access the invitation link: Accept Invitation to [facility]4.Fill in the required quijano to create your account. Sign into [email or web address] with your username and password that you [...] you will allow to register on the [facility] Patient Portal for access to your information. You can also access the [facility] Patient Portal on the Wishberg. Simply click on "Health Records" under "Moqom" and then click on the [employer] logo. HOW TO SAFELY DISPOSE OF PRESCRIPTION [...] Call your local pharmacy or go to http://[employer]/1V6Bd6a to find one close to you.3.Make use of household items: Use cat litter or old coffee grounds to dispose medications if other options arenot available. Mix your drugs with these household products, seal them in an airtight container andthrow it into the garbage. Call [facility]: [phone] to be sure your drugs can be [...] that I should contact my d octor. Patient/Post Production Assistant Signature: Date/Time: Relationship to Patient: Witness Name/Signature: Date/Time: [facility]Xpqcfdro85-56-3553 Note Date of Service 07/26/2022 Neurosurgical CC: Unstable cervical spine injury, post repair POD #13, C2-C7 posterior cervical decompressive laminectomy and C2-T2 posterior cervical instrumented fusion Patient has no new complaints today. She is motivated to mobilize. She is asking when able to be discharged home. I explained she will need detention care, than goal with home-going. Admits to [...] worsening weakness, remains with slight weakness left senior front end web developer strength and numbness in left hand. Weight [...] fracture of C6 with extension distraction fracture C6-Y8vxzad no change in alignment. XR Spine Cervical [...] NITA MADERA APRN-SILVINO on 07/26/2022 06:15 AM [facility] HospitalRbzyweby54-21-2651 Note Date of Service 07/25/2022 Neurosurgical CC: Unstable cervical spine injury, post repair POD #12, C2-C7 posterior cervical decompressive laminectomy and C2-T2 posterior cervical instrumented fusion Patient remains in the hospital awaiting precertification for detention facility No acute events overnight. Patient has [...] fracture of C6 with extension distraction fracture C6-J1xxmvz no change in alignment. XR Spine Cervical [...] NITA MADERA APRN-SILVINO on 07/25/2022 05:40 AM [facility] HospitalWfxbqetb24-20-7103 Note Date of Service 07/23/2022 Patient reviewed [...] fracture of C6 with extension distraction fracture C6-W9xnnlq no change in alignment. XR Chest 1 [...] the office visit Discussed case with licensed mental health counselor. Aware patient remains ready for discharge. Digitally Signed by NITA MADERA APRN-FITTER WELDER on 07/24/2022 11:41 AM [facility] HospitalVtbmawdo32-64-6779 Note Chief Complaint Pain Subjective Pain under [...] RUBIO MD FACP on 07/23/2022 04:02 PM [facility] HospitalMgwioljw42-17-9319 Note Date of Service 07/23/2022 Patient reviewed [...] fracture of C6 with extension distraction fracture C6-B3rkyjx no change in alignment. XR Spine Cervical [...] by NITA MADERA on 07/23/2022 06:18 AM [facility] HospitalDkcsykjv45-79-9825 Note Date of Service 07/23/2022 Patient reviewed [...] fracture of C6 with extension distraction fracture C6-S3yqatl no change in alignment. XR Spine Cervical [...] NITA MADERA APRN-SILVINO on 07/23/2022 06:18 AM [facility] HospitalBarqctzw29-25-0957 Note Chief Complaint hypotension Subjective Patient was [...] EDT Digitally Signed by FABIANO RUBIO MD [facility] on 07/22/2022 08:16 PM [facility] HospitalHyzkfjer11-97-8534 Neurological surgery Progress note Date of Service [...] AM [1] [1] Discharge Summary; ARYAN VAZ DOCUMENTATION ENGINEER-FITTER WELDER 07/21/2022 07:15 EDT Digitally Signed by NITA MADERA APRN-FITTER WELDER on 07/22/2022 09:56 AM [facility] HospitalUirwrvka43-14-8978 Discharge summary Date of Service 07/21/2022 Discharge Diagnosis 1. S/P fall, resulting in C6-7 distraction injury with bilateral pedicle fractures ([id number] - [facility]) 2. S/P C2-C7 decompressive laminectomy, C2-T2 posterior bone screw/merari fixation and fusion ([id number] - [facility]) 3. DM2 (diabetes mellitus, type [...] and face. She was evaluated in the [facility] emergency department, where she was found [...] She is ready to be discharged to [facility]. Her discharge instructions and restrictions been provided to [facility]. Her follow-up appointment has been arranged. Allergies [...] fracture of C6 with extension distraction fracture C6-J0txexu no change in alignment. XR Chest 1 [...] When 07/27/2022 09:30 AM EDT Where: [address] [facility] [address] [place] [phone] Follow Up Appointments See above Follow Up [...] Score No qualifying data available. Discharge Disposition [facility] Information Provided To Patient and [facility] Time Spent 15 min Digitally Signed by ARYAN VAZ on 07/21/2022 08:46 AM Digitally Signed by TRACE MATTHEWS MD on 07/21/2022 11:25 AM [facility] HospitalQnwujnqi13-33-1348 Discharge summary Date of Service 07/21/2022 Discharge Diagnosis 1. S/P fall, resulting in C6-7 distraction injury with bilateral pedicle fractures ([id number] - [facility]) 2. S/P C2-C7 decompressive laminectomy, C2-T2 posterior bone screw/merari fixation and fusion ([id number] - [facility]) 3. DM2 (diabetes mellitus, type [...] and face. She was evaluated in the [facility] emergency department, where she was found [...] She is ready to be discharged to [facility]. Her discharge instructions and restrictions been provided to [facility]. Her follow-up appointment has been arranged. Allergies [...] fracture of C6 with extension distraction fracture C6-F8xkozv no change in alignment. XR Chest 1 [...] When 07/27/2022 09:30 AM EDT Where: [address] [facility] [address] [place] [address]- [phone] Follow Up Appointments See above Follow Up [...] Score No qualifying data available. Discharge Disposition [facility] Information Provided To Patient and [facility] Time Spent 15 min Digitally Signed by ARYAN VAZ on 07/21/2022 08:46 AM Digitally Signed by TRACE MATTHEWS MD on 07/21/2022 11:25 AM [facility] HospitalDevnxuqp07-02-0377 Discharge summary Date of Service 07/21/2022 Discharge Diagnosis 1. S/P fall, resulting in C6-7 distraction injury with bilateral pedicle fractures ([id number] - [facility]) 2. S/P C2-C7 decompressive laminectomy, C2-T2 posterior bone screw/merari fixation and fusion ([id number] - [facility]) 3. DM2 (diabetes mellitus, type [...] and face. She was evaluated in the [facility] emergency department, where she was found [...] She is ready to be discharged to [facility]. Her discharge instructions and restrictions been provided to [facility]. Her follow-up appointment has been arranged. Allergies [...] fracture of C6 with extension distraction fracture C6-Q7bcyyb no change in alignment. XR Chest 1 [...] When 07/27/2022 09:30 AM EDT Where: [address] [facility] [address] [place] [address] [phone] Follow Up Appointments See above Follow Up [...] Score No qualifying data available. Discharge Disposition [facility] Information Provided To Patient and [facility] Time Spent 15 min Digitally Signed by ARYAN VAZ on 07/21/2022 08:46 AM Digitally Signed by TRACE MATTHEWS MD on 07/21/2022 11:25 AM [facility] HospitalDlwkidtj30-75-5833 Note Date of Service 07/21/22 Chief Complaint Weakness Subjective Patient is a very pleasant 71-year-old female with a past medical history significant for hypertension, obesity, hyperlipidemia, COPD, severe restrictive airway disease follows with [facility], noninsulin-dependent type 2 diabetes, venous insufficiency, goiter, GERD, chronic back pain and hypoxic respiratory failure wearing 2 L oxygen via nasal cannula continuous at home. Patient originally presented to [facility] emergency department on July 11, 2022. Patient sustained a mechanical fall over her walker landing on the left side of her face. [facility]. Patient was noted to have significant cervical spine injury and transferred to [facility] emergency department for further evaluation. Patient was [...] patient's primary care physician covering provider at detention facility. Continue home medication. Blood glucose checks [...] therapy involved. Recommending patient be discharged to detention facility. Patient is agreeable to discharge to detention facility. Discharge per primary team. At this [...] by JOANNA TOMLINSON on 07/21/2022 02:49 PM [facility] HospitalXsmxmorw07-45-1870 Discharge summary Date of Service 07/21/2022 Discharge Diagnosis 1. S/P fall, resulting in C6-7 distraction injury with bilateral pedicle fractures ([id number] - [facility]) 2. S/P C2-C7 decompressive laminectomy, C2-T2 posterior bone screw/merari fixation and fusion ([id number] - [facility]) 3. DM2 (diabetes mellitus, type [...] and face. She was evaluated in the [facility] emergency department, where she was found [...] She is ready to be discharged to [facility]. Her discharge instructions and restrictions been provided to [facility]. Her follow-up appointment has been arranged. Allergies [...] fracture of C6 with extension distraction fracture C6-F5iqxbo no change in alignment. XR Chest 1 [...] When 07/27/2022 09:30 AM EDT Where: [address] [place] [address]- [phone] Follow Up Appointments See above Follow Up [...] Score No qualifying data available. Discharge Disposition [facility] Information Provided To Patient and [facility] Time Spent 15 min Digitally Signed by ARYAN VAZ on 07/21/2022 08:46 AM Digitally Signed by TRACE MATTHEWS MD on 07/21/2022 11:25 AM [facility] HospitalEjmpbmao86-72-6889 Note Date of Service 07/20/22 Reason for Consultation Medical management Referring Physician Dr. Matthews History of Present Illness Patient is a very pleasant 71-year-old female with a past medical history significant for hypertension, obesity, hyperlipidemia, COPD, severe restrictive airway disease follows with [facility], noninsulin-dependent type 2 diabetes, venous insufficiency, goiter, GERD, chronic back pain and hypoxic respiratory failure wearing 2 L oxygen via nasal cannula continuous at home. Patient originally presented to [facility] emergency department on July 11, 2022. Patient sustained a mechanical fall over her walker landing on the left side of her face. [facility]. Patient was noted to have significant cervical spine injury and transferred to [facility] emergency department for further evaluation. Patient was [...] patient's primary care physician covering provider at detention facility. Continue home medication. Blood glucose checks TID. Sliding scale TID ADA diet Glycemic goal <180 Hypokalemia- resolved. Repeat BMP reviewed. Chronic hypoxic respiratory failure. Patient is tolerating oxygen via nasal cannula. 2 L which is baseline. Acute E. coli urinary tract infection. Patient has completed a full course of ceftriaxone Therapy and occasional therapy consult. Recommending patient be discharged to detention facility. Patient is agreeable to discharge to detention facility. Discharge per primary team. At this [...] by JOANNA TOMLINSON on 07/20/2022 01:37 PM [facility]Wezkdinl95-[facility]-9296 Neurological surgery Progress note Date of Service 07/20/2022 Chief Complaint S/P C2 to C7 decompressive laminectomy, C2 to T2 posterior bone screw/merari fixation (Infinity; Medtronic) with autograft/allograft (Infuse; Medtronic) fusion with navigation and intraoperative SSEP, MEP and EMG vxximnhbss-jquf-dl day #7. This is a 71-year-old female, who sustained an unstable C6-7 fracture/dislocation status post falling over her walker and landing on the left side of her body and face. She was evaluated in the [facility] emergency department, where she was found [...] TRACE MATTHEWS MD on 07/20/2022 10:34 AM [facility]Noaeclzl17-76-4016 Progress note Date of Service July 19, [...] TRACE MATTHEWS MD on 07/19/2022 09:14 AM [facility] HospitalJbdoxeur73-26-1474 Note Date of Service 07/18/2022 Split/shared visit [...] completed, have provided recommendations for skilled rehab. DECKHAND ENGINEER to assist with discharge planning. ICU team following for medical and pulmonary management; appreciate their support and assistance incare of patient. Please refer to Dr. Mccallum's addendum for further details. [1] VL Venous US/Doppler Both Legs(for DVT); 07/18/2022 11:00 EDT Digitally Signed by PELON RUIZ APRN-SILVINO on 07/18/2022 04:44 PM [facility] HospitalGfykwlqm84-17-1578 Note Date of Service 07/18/2022 Split/shared visit [...] completed, have provided recommendations for skilled rehab. DECKHAND ENGINEER to assist with discharge planning. ICU team following for medical and pulmonary management; appreciate their support and assistance incare of patient. Please refer to Dr. Mccallum's addendum for further details. [1] VL Venous US/Doppler Both Legs(for DVT); 07/18/2022 11:00 EDT Digitally Signed by PELON RUIZ on 07/18/2022 04:44 PM [facility] HospitalDqkxctfi49-70-7640 Note Date of Service 07/18/2022 Split/shared visit [...] completed, have provided recommendations for skilled rehab. DECKHAND ENGINEER to assist with discharge planning. ICU team following for medical and pulmonary management; appreciate their support and assistance incare of patient. Please refer to Dr. Mccallum's addendum for further details. [1] VL Venous US/Doppler Both Legs(for DVT); 07/18/2022 11:00 EDT Digitally Signed by PELON RUIZ on 07/18/2022 04:44 PM [facility] HospitalBjfrooxr09-11-7309 Note Date of Service 07/18/2022 Split/shared visit [...] completed, have provided recommendations for skilled rehab. DECKHAND ENGINEER to assist with discharge planning. ICU team following for medical and pulmonary management; appreciate their support and assistance incare of patient. Please refer to Dr. Mccallum's addendum for further details. [1] VL Venous US/Doppler Both Legs(for DVT); 07/18/2022 11:00 EDT Digitally Signed by PELON RUIZ on 07/18/2022 04:44 PM [facility] HospitalAooaziyq83-34-7906 Note Date of Service 07/18/22 Subjective This [...] KENY VARGAS MD on 07/18/2022 08:05 AM [facility] HospitalDssfjppc32-04-1525 Note Date of Service 07/17/2022 Split/shared visit [...] lower extremities for assessment of possible DVT/SVT. Middle [employer] Art Teacher following for medical and pulmonary management; appreciate their support and assistancein care of patient. Please refer to Dr. Mccallum's addendum for further details. Dr Lerner like patient to remain in ICU until Doppler ultrasounds have been completed. Further instructions will be provided at that time. Digitally Signed by PELON RUIZ on 07/17/2022 11:16 AM [facility] HospitalJzubaqsf93-43-1199 Note Date of Service 07/17/22 Subjective This [...] KENY VARGAS MD on 07/17/2022 08:39 AM [facility] HospitalSottxfhe53-21-7082 Note Date of Service 07/17/2022 Split/shared visit [...] lower extremities for assessment of possible DVT/SVT. Middle [employer] Art Teacher following for medical and pulmonary management; appreciate their support and assistancein care of patient. Please refer to Dr. Mccallum's addendum for further details. Dr Lerner like patient to remain in ICU until Doppler ultrasounds have been completed. Further instructions will be provided at that time. Digitally Signed by PELON RUIZ on 07/17/2022 11:16 AM [facility] HospitalRvodfyyv49-35-0349 Neurological surgery Progress note Date of Service 07/16/2022 Chief Complaint S/P C2 to C7 decompressive laminectomy, C2 to T2 posterior bone screw/merari fixation (Infinity; Medtronic) with autograft/allograft (Infuse; Medtronic) fusion with navigation and intraoperative SSEP, MEP and EMG oxtnugqzzi-myns-ew day #3. This is a 71-year-old female, who sustained an unstable C6-7 fracture/dislocation status post falling over her walker and landing on the left side of her body and face. She was evaluated in the [facility] emergency department, where she was found [...] neurosurgery to be notified to further evaluate. Middle [employer] Art Teacher following for medical and pulmonary management. Time Spent 15 min Digitally Signed by ARYAN VAZ APRN-SILVINO on 07/16/2022 12:12 PM [facility] HospitalMpvsbnpx09-50-2388 Neurological surgery Progress note Date of Service 07/16/2022 Chief Complaint S/P C2 to C7 decompressive laminectomy, C2 to T2 posterior bone screw/merari fixation (Infinity; Medtronic) with autograft/allograft (Infuse; Medtronic) fusion with navigation and intraoperative SSEP, MEP and EMG sdaimryaoh-uypl-st day #3. This is a 71-year-old female, who sustained an unstable C6-7 fracture/dislocation status post falling over her walker and landing on the left side of her body and face. She was evaluated in the [facility] emergency department, where she was found [...] brace at all times. -Likely transfer to [facility] tomorrow. Dr. Lerner would prefer to wait 5 days post-op to start chemical DVT prophylaxis. Will obtain LE dopplars on Tuesday and then likely clear patient to start Heparin sq. -In meantime continue SCDS. -Continue measuring thigh and calf bilateral twice a day and if increases in size by 1cm neurosurgery to be notified to further evaluate. [employer] Art Teacher following for medical and pulmonary management. Time Spent 15 min Digitally Signed by ARYAN VAZ on 07/16/2022 12:12 PM [facility] HospitalXcarvppe17-20-0012 Note Date of Service 07/16/2022 Chief Complaint [...] C2C3 so that patient was transferred to [facility] where she was evaluated per neurosurgery [...] ANNE-MARIE MCGRAW MD on 07/16/2022 09:57 AM [facility] HospitalNoupvxxs83-66-9946 Neurological surgery Progress note Date of Service 07/14/2022 Chief Complaint S/P C2 to C7 decompressive laminectomy, C2 to T2 posterior bone screw/merari fixation (Infinity; Medtronic) with autograft/allograft (Infuse; Medtronic) fusion with navigation and intraoperative SSEP, MEP and EMG derydiklqd-nsfp-zt day #1. This is a 71-year-old female, who sustained an unstable C6-7 fracture/dislocation status post falling over her walker and landing on the left side of her body and face. She was evaluated in the [facility] emergency department, where she was found to have a distraction extension fracture at C6/7 with bilateral pedicle fractures. [facility]. Shewas taken to surgery yesterday for a C2-C7 decompressive laminectomy and C2-T2 posterior bone screw/merari fixation and fusion. She does have facial swelling, and therefore remains intubated. Middle [employer] Art Teacher plan to keep patient intubated today and [...] No edema noted Neurological: See HPI Skin: [place], warm, and dry. Psychiatric: Mood stable. Cooperative. [...] fracture of C6 with extension distraction fracture C6-E4pyhvg no change in alignment. XR Chest 1 [...] be extubated tomorrow and can start PT/OT. Middle [employer] Art Teacher following for medical and pulmonary management. Time Spent 15 min Digitally Signed by ARYAN VAZ on 07/14/2022 11:59 AM [facility] HospitalXatikfck03-56-0595 Neurological surgery Progress note Date of Service 07/15/2022 Chief Complaint S/P C2 to C7 decompressive laminectomy, C2 to T2 posterior bone screw/merari fixation (Infinity; Medtronic) with autograft/allograft (Infuse; Medtronic) fusion with navigation and intraoperative SSEP, MEP and EMG mqmuhjjbyy-wivk-hk day #2. This is a 71-year-old female, who sustained an unstable C6-7 fracture/dislocation status post falling over her walker and landing on the left side of her body and face. She was evaluated in the [facility] emergency department, where she was found [...] neurosurgery to be notified to further evaluate. [employer] Art Teacher following for medical and pulmonary management. Time Spent 15 min Digitally Signed by ARYAN VAZ on 07/15/2022 01:20 PM [facility] HospitalZmiqnprx67-34-6819 Neurological surgery Progress note Date of Service 07/14/2022 Chief Complaint S/P C2 to C7 decompressive laminectomy, C2 to T2 posterior bone screw/merari fixation (Infinity; Medtronic) with autograft/allograft (Infuse; Medtronic) fusion with navigation and intraoperative SSEP, MEP and EMG xuyqmnnseh-xohg-no day #1. This is a 71-year-old female, who sustained an unstable C6-7 fracture/dislocation status post falling over her walker and landing on the left side of her body and face. She was evaluated in the [facility] emergency department, where she was found to have a distraction extension fracture at C6/7 with bilateral pedicle fractures. She was [facility] for [facility] evaluation. Shewas taken to surgery yesterday for a C2-C7 decompressive laminectomy and C2-T2 posterior bone screw/merari fixation and fusion. She does have facial swelling, and therefore remains intubated. [employer] Art Teacher plan to keep patient intubated today and [...] No edema noted Neurological: See HPI Skin: [place], warm, and dry. Psychiatric: Mood stable. Cooperative. [...] nystatin powder 100,000 units/g 15 Gram(s) 1 maryc, Topical, AsDirected ocular lubricant - Ointment 3.5 [...] fracture of C6 with extension distraction fracture C6-Z7hhxws no change in alignment. XR Chest 1 [...] be extubated tomorrow and can start PT/OT. [employer] Art Teacher following for medical and pulmonary management. Time Spent 15 min Digitally Signed by ARYAN VAZ on 07/14/2022 11:59 AM [facility] HospitalBmzupeki17-28-5664 Neurological surgery Progress note Date of Service 07/15/2022 Chief Complaint S/P C2 to C7 decompressive laminectomy, C2 to T2 posterior bone screw/merari fixation (Infinity; Medtronic) with autograft/allograft (Infuse; Medtronic) fusion with navigation and intraoperative SSEP, MEP and EMG ixefkdmmng-rbdk-xv day #2. This is a 71-year-old female, who sustained an unstable C6-7 fracture/dislocation status post falling over her walker and landing on the left side of her body and face. She was evaluated in the [facility] emergency department, where she was found [...] neurosurgery to be notified to further evaluate. [employer] Art Teacher following for medical and pulmonary management. Time Spent 15 min Digitally Signed by ARYAN VAZ on 07/15/2022 01:20 PM [facility] HospitalJlgqwhbj05-51-4900 Note Date of Service 07/15/2022 Subjective 71 [...] C2C3 so that patient was transferred to [facility] where she was evaluated per neurosurgery [...] DARLING EDWARDS MD on 07/15/2022 08:56 AM [facility] HospitalHbvjwgkx28-40-9401 Note ORIGINAL EXAMINATION: ONE XRAY VIEW OF [...] 07/15/2022 6:01:36 AM Ordering Provider: OSEI STOVER [facility] HospitalWknnvlgp15-03-0767 Note ORIGINAL EXAMINATION: ONE XRAY VIEW OF [...] Sign Date: 07/15/2022 6:01:36 AM Ordering Provider: [facility]08-31-2022 Neurological surgery Progress note Date of Service 07/14/2022 Chief Complaint S/P C2 to C7 decompressive laminectomy, C2 to T2 posterior bone screw/merari fixation (Infinity; Medtronic) with autograft/allograft (Infuse; Medtronic) fusion with navigation and intraoperative SSEP, MEP and EMG ueqlpkynpe-sdvq-iv day #1. This is a 71-year-old female, who sustained an unstable C6-7 fracture/dislocation status post falling over her walker and landing on the left side of her body and face. She was evaluated in the [facility] emergency department, where she was found to have a distraction extension fracture at C6/7 with bilateral pedicle fractures. She was [facility] for [facility] evaluation. Shewas taken to surgery yesterday for a C2-C7 decompressive laminectomy and C2-T2 posterior bone screw/merari fixation and fusion. She does have facial swelling, and therefore remains intubated. [employer] Art Teacher plan to keep patient intubated today and [...] No edema noted Neurological: See HPI Skin: [place], warm, and dry. Psychiatric: Mood stable. Cooperative. [...] fracture of C6 with extension distraction fracture C6-W8onrvf no change in alignment. XR Chest 1 [...] be extubated tomorrow and can start PT/OT. [employer] Art Teacher following for medical and pulmonary management. Time Spent 15 min Digitally Signed by ARYAN VAZ on 07/14/2022 11:59 AM [facility] HospitalGcetnqjr24-77-8137 Note ORIGINAL EXAMINATION: ONE SUPINE XRAY VIEW(S) [...] Sign Date: 07/14/2022 9:41:47 AM Ordering Provider: [facility]08-31-2022 Note ORIGINAL EXAMINATION: ONE SUPINE XRAY VIEW(S) [...] Sign Date: 07/14/2022 9:41:47 AM Ordering Provider: [facility]08-31-2022 Note Date of Service 07/14/2022 Chief [...] C2C3 so that patient was transferred to [facility] where she was evaluated per neurosurgery [...] ANNE-MARIE MCGRAW MD on 07/16/2022 09:53 AM [address]31-2022 Note ORIGINAL EXAMINATION: CT OF THE [...] 07/14/2022 6:52:00 AM Ordering Provider: NITA MADERA [facility] HospitalNjxvqhcf86-97-9103 Note ORIGINAL EXAMINATION: ONE XRAY VIEW OF [...] Sign Date: 07/14/2022 6:00:18 AM Ordering Provider: [facility]08-31-2022 Note ORIGINAL EXAMINATION: ONE XRAY VIEW [...] 6:00:18 AM Ordering Provider: [facility]08-31-2022 Note ORIGINAL EXAMINATION: CT OF [...] Sign Date: 07/14/2022 6:52:00 AM Ordering Provider: [facility]08-31-2022 Note ORIGINAL EXAMINATION: SPOT FLUOROSCOPIC IMAGES 07/13/2022 [...] 07/14/2022 4:26:28 AM Ordering Provider: MARYCHUY LERNER [facility] HospitalVnnrkywx83-79-9591 Note ORIGINAL EXAMINATION: ONE XRAY VIEW OF [...] 07/13/2022 9:06:27 PM Ordering Provider: [place] COOL [facility] HospitalYkxkzfpq77-02-0848 Note ORIGINAL EXAMINATION: ONE XRAY VIEW OF [...] Date: 07/13/2022 9:06:27 PM Ordering Provider: [place] COOLMi[facility] HospitalErwthhij31-93-4823 Note ORIGINAL EXAMINATION: SPOT FLUOROSCOPIC IMAGES 07/13/2022 [...] Date: 07/14/2022 4:26:28 AM Ordering Provider: MARYCHUY ZhaoUC HealthUyzfycta99-17-1539 Note Date of Service 07/13/2022 Split/shared visit with Dr. Jaswant MD Neurosurgical CC: Unstable C6-7 fracture or dislocation post fall. C2-C3 stenosis with cervical myelopathy Patient is a 71-year-old female who was brought to [facility] via EMS after sustaining a fall over her walker landing on her left side and face on 07/11/2022. 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 Patient transferred to [place] ED. 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 Negative Pierre's. She does have 3 beats [...] pain post fall. She was taken to [facility] by EMS found to have cervical spine injury and transferred to [facility]. Stat MRI completed and patient was admitted [...] by NITA MADERA on 07/13/2022 05:50 AM [facility] HospitalDltwofgc92-03-7074 Note ORIGINAL EXAMINATION: TWO XRAY VIEWS OF [...] Sign Date: 07/13/2022 3:47:11 PM Ordering Provider: [facility]08-30-2022 Note ORIGINAL EXAMINATION: TWO XRAY [...] Sign Date: 07/13/2022 3:47:11 PM Ordering Provider: [facility]08-30-2022 Anesthesiology Consult note Patient: POLI [...] a prior cardiac history including a previous AR, however, she has not had any interventions, [...] Constipation NS 1,000 mL: 50 mL/hr, Intravenous [place] 325- 5 mg oral tablet: 1 tab(s), [...] list: Medical Chronic anemia / SNOMED CT 419238005 / Confirmed Chronic back pain / SNOMED CT 403244904 / Confirmed COPD / SNOMED CT 23625127 / Confirmed Hypertension, essential / SNOMED CT 20665899 / Confirmed GERD (gastroesophageal reflux disease) / SNOMED CT [id number] / Confirmed Goiter / SNOMED CT 5876931 / Confirmed Hyperlipidemia / SNOMED CT 59556268 / Confirmed Incontinence of urine / SNOMED CT 9967081262 / Confirmed, Active Problems (30) Anemia Arthritis [...] incontinence Histories Past Medical History: Active COPD (56119963) Chronic back pain (581269532) Resolved H/O hypercholesterolemia (3221874172): Resolved. Hypernatremia (8236582705): Resolved. Family History: Heart disease Father Brother Arthritis Daughter Stroke Mother Cancer Sister HTN - Hypertension Mother GERD (gastroesophageal reflux disease) Daughter Diverticulitis Daughter Procedure history: None (901148367). Appendectomy (531655126). Comments: 08/11/2017 12:13 SHAMA BOLTON left water taken off Tubal ligation (288660651). Cholecystectomy (59771699). Arthroscopic knee operation (4693748914). Comments: 12/24/2019 13:16 SHAMA Gabriel right Lumpectomy of breast (2307910949). Comments: 12/24/2019 13:16 SHAMA Gabriel left Phacoemulsification of cataract with intraocular lens implantation (2639959949). Comments: 12/24/2019 13:16 SHAMA Gabriel both eyes Colonoscopy (537916198). Esophagogastroduodenoscopy (199836482). Cardiac catheter (1865521489). Comments: 12/24/2019 13:17 SHAMA Gabriel years ago [...] kg (Modified) Weight Lbs 217.1 lb (Modified) [place] Body Weight 56.91 kg BSA Admission 2.05 [...] On and Limits Checked Nail Bed Color [place] Capillary Refill < 2 seconds Heart Sounds [...] grimaces Skin Symptoms Bruising All Extremity Description [place] Skin Temperature Warm Temperature All Extremities Warm Skin Description [place], Normal for ethnicity Skin Integrity Not intact Skin Turgor Non-Elastic Mucous Membrane Color [place] Mucous Membrane Description Moist Nose Anterior Skin [...] Zeke Obeys simple commands Best Verbal Response [place] Oriented Zeke Coma Score 14 YANICK Yes [...] Appropriate, Calm, Cooperative Orientation Oriented x 4 Insurance Sales Supervisor On Yes Patient Dressed In Hospital gown [...] On and Limits Checked Nail Bed Color [place] Capillary Refill < 2 seconds Heart Sounds ICU S1S2 Heart Rhythm Regular Dorsalis Pedis Pulse, Left 1+ Thready Dorsalis Pedis Pulse, Right 1+ Thready Posttibial Pulse, Left 1+ Thready Posttibial Pulse, Right 1+ Thready Radial Pulse, Left 2+ Normal Radial Pulse, Right 2+ Normal Edema Generalized None Cardiac Rhythm Sinus tachycardia Monitoring Lead II, V1/MCL1 LA Interval 0.16 second(s) QRS Duration 0.09 second(s) [...] grimaces Skin Symptoms Bruising All Extremity Description [place] Skin Temperature Warm Temperature All Extremities Warm Skin Description [place], Normal for ethnicity Skin Integrity Not intact Skin Turgor Non-Elastic Mucous Membrane Color [place] Mucous Membrane Description Moist Nose Anterior Skin [...] Response Zeke To voice Best Motor Response [place] Obeys simple commands Best Verbal Response [place] Oriented Zeke Coma Score 14 YANICK Yes [...] On and Limits Checked Nail Bed Color [place] Capillary Refill < 2 seconds Heart Sounds [...] grimaces Skin Symptoms Bruising All Extremity Description [place] Skin Temperature Warm Temperature All Extremities Warm Skin Description [place], Normal for ethnicity Skin Integrity Not intact Skin Turgor Elastic Mucous Membrane Color [place] Mucous Membrane Description Moist Nose Anterior Skin [...] Arousable with minimal stimulation Eye Opening Response [place] To voice Best Motor Response Zeke Obeys simple commands Best Verbal Response Zeke Oriented [place] Coma Score 14 YANICK Yes Left Pupil [...] Mode Order Detail Bed Nurse and Monitor Nascar Racer Details Form Nascar Racer Details Form 07/13/2022 0:40 EDT Notify date/time [...] On and Limits Checked Nail Bed Color [place] Capillary Refill < 2 seconds Heart Sounds ICU S1S2 Heart Rhythm Regular Dorsalis Pedis Pulse, Left 1+ Thready Dorsalis Pedis Pulse, Right 1+ Thready Posttibial Pulse, Left 1+ Thready Posttibial Pulse, Right 1+ Thready Radial Pulse, Left 2+ Normal Radial Pulse, Right 2+ Normal Edema Generalized None Cardiac Rhythm Sinus tachycardia Monitoring Lead II, V1/MCL1 LA Interval 0.13 second(s) QRS Duration 0.08 second(s) [...] grimaces Skin Symptoms Bruising All Extremity Description [place] Skin Temperature Warm Temperature All Extremities Warm Skin Description [place], Normal for ethnicity Skin Integrity Not intact Skin Turgor Non-Elastic Mucous Membrane Color [place] Mucous Membrane Description Moist Nose Anterior Skin [...] Arousable with minimal stimulation Eye Opening Response [place] To voice Best Motor Response Zeke Obeys simple commands Best Verbal Response Zeke Oriented [place] Coma Score 14 YANICK Yes Left Pupil [...] Appropriate, Calm, Cooperative Orientation Oriented x 4 [facility] HospitalRofgmjbl81-26-6640 Note Date of Service 07/13/2022 Split/shared visit with Dr. Jaswant MD Neurosurgical CC: Unstable C6-7 fracture or dislocation post fall. C2-C3 stenosis with cervical myelopathy Patient is a 71-year-old female who was brought to [facility] via EMS after sustaining a fall over her walker landing on her left side and face on 07/11/2022. 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 Patient transferred to [place] ED. 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 Negative Pierre's. She does have 3 beats [...] pain post fall. She was taken to [facility] by EMS found to have cervical spine injury and transferred to [place] ED. Stat MRI completed and patient was [...] by NITA MADERA on 07/13/2022 05:50 AM [facility] HospitalXqhpsqsh37-96-5217 Anesthesiology Consult note* ALEJANDRA HERNANDEZ MD: PERFORM, SIGN, VERIFY Event Display: Anesthesiology Consultation Authored Date: [id number] Patient: POLI RAMIREZ Age: 71 years Sex: [...] a prior cardiac history including a previous AR, however, she has not had any interventions, [...] Constipation NS 1,000 mL: 50 mL/hr, Intravenous [place] 325- 5 mg oral tablet: 1 tab(s), [...] list: Medical Chronic anemia / SNOMED CT 089712795 / Confirmed Chronic back pain / SNOMED CT 033192600 / Confirmed COPD / SNOMED CT 29528050 / Confirmed Hypertension, essential / SNOMED CT 31430596 / Confirmed GERD (gastroesophageal reflux disease) / SNOMED CT [id number] / Confirmed Goiter / SNOMED CT 2648828 / Confirmed Hyperlipidemia / SNOMED CT 13789141 / Confirmed Incontinence of urine / SNOMED CT 8138375867 / Confirmed, Active Problems (30) Anemia Arthritis [...] incontinence Histories Past Medical History: Active COPD (69128502) Chronic back pain (910279944) Resolved H/O hypercholesterolemia (3380893145): Resolved. Hypernatremia (7806283603): Resolved. Family History: Heart disease Father Brother Arthritis Daughter Stroke Mother Cancer Sister HTN - Hypertension Mother GERD (gastroesophageal reflux disease) Daughter Diverticulitis Daughter Procedure history: None (177975177). Appendectomy (745003428). Comments: 08/11/2017 12:13 SHAMA BOLTON left water taken off Tubal ligation ([id number]). Cholecystectomy ([id number]). Arthroscopic knee operation ([id number]). Comments: 12/24/2019 13:16 SHAMA Gabriel right Lumpectomy of breast ([id number]). Comments: 12/24/2019 13:16 SHAMA Gabriel left Phacoemulsification of cataract with intraocular lens implantation ([id number]). Comments: 12/24/2019 13:16 SHAMA Gabriel both eyes Colonoscopy ([id number]). Esophagogastroduodenoscopy ([id number]). Cardiac catheter ([id number]). Comments: 12/24/2019 13:17 SHAMA Gabriel years ago [...] kg (Modified) Weight Lbs 217.1 lb (Modified) [place] Body Weight 56.91 kg BSA Admission 2.05 [...] On and Limits Checked Nail Bed Color [place] Capillary Refill < 2 seconds Heart Sounds [...] grimaces Skin Symptoms Bruising All Extremity Description [place] Skin Temperature Warm Temperature All Extremities Warm Skin Description [place], Normal for ethnicity Skin Integrity Not intact Skin Turgor Non-Elastic Mucous Membrane Color [place] Mucous Membrane Description Moist Nose Anterior Skin [...] Arousable with minimal stimulation Eye Opening Response [place] To voice Best Motor Response Zeke Obeys simple commands Best Verbal Response [place] Oriented Zeke Coma Score 14 YANICK Yes [...] Appropriate, Calm, Cooperative Orientation Oriented x 4 Insurance Sales Supervisor On Yes Patient Dressed In Hospital gown [...] On and Limits Checked Nail Bed Color [place] Capillary Refill < 2 seconds Heart Sounds ICU S1S2 Heart Rhythm Regular Dorsalis Pedis Pulse, Left 1+ Thready Dorsalis Pedis Pulse, Right 1+ Thready Posttibial Pulse, Left 1+ Thready Posttibial Pulse, Right 1+ Thready Radial Pulse, Left 2+ Normal Radial Pulse, Right 2+ Normal Edema Generalized None Cardiac Rhythm Sinus tachycardia Monitoring Lead II, V1/MCL1 LA Interval 0.16 second(s) QRS Duration 0.09 second(s) [...] grimaces Skin Symptoms Bruising All Extremity Description [place] Skin Temperature Warm Temperature All Extremities Warm Skin Description [place], Normal for ethnicity Skin Integrity Not intact Skin Turgor Non-Elastic Mucous Membrane Color [place] Mucous Membrane Description Moist Nose Anterior Skin [...] Arousable with minimal stimulation Eye Opening Response [place] To voice Best Motor Response [place] Obeys simple commands Best Verbal Response Zeke [...] On and Limits Checked Nail Bed Color [place] Capillary Refill < 2 seconds Heart Sounds [...] grimaces Skin Symptoms Bruising All Extremity Description [place] Skin Temperature Warm Temperature All Extremities Warm Skin Description [place], Normal for ethnicity Skin Integrity Not intact Skin Turgor Elastic Mucous Membrane Color [place] Mucous Membrane Description Moist Nose Anterior Skin [...] simple commands Best Verbal Response Zeke Oriented [place] Coma Score 14 YANICK Yes Left Pupil [...] Mode Order Detail Bed Nurse and Monitor Nascar Racer Details Form Nascar Racer Details Form 07/13/2022 0:40 EDT Notify date/time [...] On and Limits Checked Nail Bed Color [place] Capillary Refill < 2 seconds Heart Sounds ICU S1S2 Heart Rhythm Regular Dorsalis Pedis Pulse, Left 1+ Thready Dorsalis Pedis Pulse, Right 1+ Thready Posttibial Pulse, Left 1+ Thready Posttibial Pulse, Right 1+ Thready Radial Pulse, Left 2+ Normal Radial Pulse, Right 2+ Normal Edema Generalized None Cardiac Rhythm Sinus tachycardia Monitoring Lead II, V1/MCL1 LA Interval 0.13 second(s) QRS Duration 0.08 second(s) [...] grimaces Skin Symptoms Bruising All Extremity Description [place] Skin Temperature Warm Temperature All Extremities Warm Skin Description [place], Normal for ethnicity Skin Integrity Not intact Skin Turgor Non-Elastic Mucous Membrane Color [place] Mucous Membrane Description Moist Nose Anterior Skin [...] Arousable with minimal stimulation Eye Opening Response [place] To voice Best Motor Response [place] Obeys simple commands Best Verbal Response [place] Oriented [place] Coma Score 14 YANICK Yes Left Pupil [...] mL 07/12/2022 22:59 EDT IV Present Present Insurance Sales Supervisor On Yes Patient Dressed In Hospital gown [...] On and Limits Checked Nail Bed Color [place] Capillary Refill < 2 seconds Heart Sounds [...] grimaces Skin Symptoms Bruising All Extremity Description [place] Skin Temperature Warm Temperature All Extremities Warm Skin Description [place], Normal for ethnicity Skin Integrity Not intact Skin Turgor Elastic Mucous Membrane Color [place] Mucous Membrane Description Moist Nose Anterior Skin [...] Arousable with minimal stimulation Eye Opening Response [place] To voice Best Motor Response Zeek Obeys simple commands Best Verbal Response [place] Oriented Zeke Coma Score 14 YANICK Yes [...] Type 0-10 Pain scale Nail Bed Color [place] Capillary Refill < 2 seconds Dorsalis Pedis [...] grimaces Skin Symptoms Bruising All Extremity Description [place] Skin Temperature Warm Temperature All Extremities Warm Skin Description [place], Normal for ethnicity Skin Integrity Not intact Skin Turgor Elastic Mucous Membrane Color [place] Mucous Membrane Description Moist Nose Anterior Skin [...] Response Zeke To voice Best Motor Response [place] Obeys simple commands Best Verbal Response [place] Oriented Zeke Coma Score 14 YANICK Yes [...] Type 0-10 Pain scale Nail Bed Color [place] Capillary Refill < 2 seconds Heart Rhythm [...] On Skin Symptoms Bruising All Extremity Description [place] Skin Temperature Warm Temperature All Extremities Warm Skin Description [place], Normal for ethnicity Skin Integrity Not intact Skin Turgor Elastic Mucous Membrane Color [place] Mucous Membrane Description Moist Nose Anterior Skin [...] Response Zeke To voice Best Motor Response [place] Obeys simple commands Best Verbal Response [place] Oriented [place] Coma Score 14 YANICK Yes Left Pupil [...] Mode Order Detail Bed Nurse and Monitor Nascar Racer Details Form Nascar Racer Details Form 07/12/2022 15:18 EDT SN - [...] Type 0-10 Pain scale Nail Bed Color [place] Capillary Refill < 2 seconds Heart Rhythm Regular Dorsalis Pedis Pulse, Left 1+ Thready Dorsalis Pedis Pulse, Right 1+ Thready Posttibial Pulse, Left 1+ Thready Posttibial Pulse, Right 1+ Thready Radial Pulse, Left 2+ Normal Radial Pulse, Right 2+ Normal Edema Generalized None Cardiac Rhythm Bundle branch block Cardiac Rhythm Sinus tachycardia Monitoring Lead II LA Interval 0.13 second(s) QRS Duration 0.12 second(s) [...] On Skin Symptoms Bruising All Extremity Description [place] Skin Temperature Warm Temperature All Extremities Warm Skin Description [place], Normal for ethnicity Skin Integrity Not intact Skin Turgor Elastic Mucous Membrane Color [place] Mucous Membrane Description Moist Nose Anterior Skin [...] Arousable with minimal stimulation Eye Opening Response [place] Spontaneously Best Motor Response Zeke Obeys simple commands Best Verbal Response Zeke Oriented [place] Coma Score 15 YANICK Yes Left Pupil [...] Type 0-10 Pain scale Nail Bed Color [place] Capillary Refill < 2 seconds Heart Rhythm [...] On Skin Symptoms Bruising All Extremity Description [place] Skin Temperature Warm Temperature All Extremities Warm Skin Description [place], Normal for ethnicity Skin Integrity Not intact Skin Turgor Elastic Mucous Membrane Color [place] Mucous Membrane Description Moist Continuous IV Infusions NS @ 50ml/hr Forearm Right 18 gauge Peripheral IV Site Condition: No complications Neurological Language Able to speak clearly Neurological Symptoms Numbness Gait Unable to assess Extremity Movement Equal Swallowing Difficulty None Characteristics of Communication Appropriate Characteristics of Speech Clear Facial Symmetry Symmetric Level of Consciousness Arousable with minimal stimulation Eye Opening Response [place] Spontaneously Best Motor Response Zeke Obeys simple [...] Person #2 We May Share PHI Jocy [phone] Designated Person #2 Relationship Daughter Privacy Restrictions Requested None (Modified) Height 165 cm (Modified) Height in inches 65 inch(es) (Modified) Admission Weight 98.7 kg (Modified) Weight Lbs 217.1 lb (Modified) [place] Body Weight 56.91 kg BSA Admission 2.05 [...] Advanced Directives Yes (Modified) Advance Directive Type [place] Declaration (Living Will) (Modified) Advance Directive Location [...] Verbalizes/Nonverbally indicates understanding (Modified) Preferred Written Language Burmese (Modified) Preferred Spoken Language Burmese (Modified) Information Given by Patient (Modified) Patient's [...] Type 0-10 Pain scale Nail Bed Color [place] Capillary Refill < 2 seconds Heart Sounds ICU S1S2 Heart Rhythm Regular Dorsalis Pedis Pulse, Left 1+ Thready Dorsalis Pedis Pulse, Right 1+ Thready Posttibial Pulse, Left 1+ Thready Posttibial Pulse, Right 1+ Thready Edema Generalized None Cardiac Rhythm Bundle branch block Cardiac Rhythm Sinus tachycardia Monitoring Lead II LA Interval 0.14 second(s) QRS Duration 0.12 second(s) [...] On Skin Symptoms Bruising All Extremity Description [place] Skin Temperature Warm Temperature All Extremities Warm Skin Description [place], Normal for ethnicity Skin Integrity Not intact Skin Turgor Elastic Mucous Membrane Color [place] Mucous Membrane Description Moist Nose Anterior Skin [...] Type 0-10 Pain scale Nail Bed Color [place] Capillary Refill < 2 seconds Dorsalis Pedis [...] On Skin Symptoms Bruising All Extremity Description [place] Skin Temperature Warm Temperature All Extremities Warm Skin Description [place], Normal for ethnicity Skin Integrity Not intact Skin Turgor Elastic Mucous Membrane Color [place] Mucous Membrane Description Moist Nose Anterior Wound [...] Mode Order Detail Bed Nurse and Monitor Nascar Racer Details Form Nascar Racer Details Form 07/12/2022 8:15 EDT Magnesium Lvl [...] Type 0-10 Pain scale Nail Bed Color [place] Capillary Refill < 2 seconds Heart Sounds ICU S1S2 Heart Rhythm Regular Dorsalis Pedis Pulse, Left 1+ Thready Dorsalis Pedis Pulse, Right 1+ Thready Posttibial Pulse, Left 1+ Thready Posttibial Pulse, Right 1+ Thready Radial Pulse, Left 2+ Normal Radial Pulse, Right 2+ Normal Edema Generalized None Cardiac Rhythm Sinus tachycardia, Bundle branch block Monitoring Lead II, V1/MCL1 LA Interval 0.14 second(s) QRS Duration 0.13 second(s) [...] On Skin Symptoms Bruising All Extremity Description [place] Skin Temperature Warm Temperature All Extremities Warm Skin Description [place], Normal for ethnicity Skin Integrity Not intact Skin Turgor Elastic Mucous Membrane Color [place] Mucous Membrane Description Moist Nose Anterior Skin [...] Opening Response Zeke Spontaneously Best Motor Response [place] Obeys simple commands Best Verbal Response Zeke Oriented [place] Coma Score 15 YANICK Yes Left Pupil [...] On and Limits Checked Nail Bed Color [place] Capillary Refill < 2 seconds Heart Sounds [...] On Skin Symptoms Bruising All Extremity Description [place] Skin Temperature Warm Skin Description [place], Normal for ethnicity Skin Integrity Not intact Skin Turgor Elastic Mucous Membrane Color [place] Mucous Membrane Description Moist Nose Anterior Skin Abnormality Type: Abrasion Wound Status: No complications Neurological Language Able to speak clearly, Follows simple commands Neurological Symptoms Numbness Gait Unable to assess Extremity Movement Equal Swallowing Difficulty None Characteristics of Communication Appropriate Characteristics of Speech Clear Facial Symmetry Symmetric Level of Consciousness Arousable with minimal stimulation Eye Opening Response [place] Spontaneously Best Motor Response [place] Obeys simple commands Best Verbal Response [place] Oriented Zeke Coma Score 15 YANICK Yes [...] On and Limits Checked Nail Bed Color [place] Capillary Refill < 2 seconds Heart Sounds [...] On Skin Symptoms Bruising All Extremity Description [place] Skin Temperature Warm Temperature All Extremities Warm Skin Description [place], Dry Skin Integrity Not intact Skin Turgor Elastic Mucous Membrane Color [place] Mucous Membrane Description Moist Nose Anterior Wound [...] Zeke Obeys simple commands Best Verbal Response [place] Oriented [place] Coma Score 14 YANICK Yes Left Pupil [...] Mode Order Detail Bed Nurse and Monitor Nascar Racer Details Form Nascar Racer Details Form 07/12/2022 0:25 EDT Mechanical VTE Prophylaxis Education Not Done: Task Duplication (Not Done) Sequential Compression Device Form Not Done (Not Done) 07/12/2022 0:08 EDT Primary Pain Intensity 7 HYDROmorphone 0.5 mg mg ondansetron 4 mg mg . Assessment and Plan [place] [employer] Anesthesi[employer] (ASA) physical status classification: [...] ALEJANDRA HERNANDEZ MD on 07/13/2022 07:28 AM [facility] 08-29-2022 Note Date of Service 07/12/2022 [...] and equal. Left tricep 2.5/5, bicep 3.5/5, senior front end web developer 4/5, bilateral intrinsics are strong. Negative Pierre's. [...] pain post fall. She was taken to [facility] by EMS found to have cervical spine injury and transferred to [place] ED. Stat MRI completed and patient was [...] by NITA MADERA on 07/12/2022 05:53 AM [id number] Critical care medicine Consult note Date of [...] C2C3 so that patient was transferred to [facility] where she was evaluated per neurosurgery [...] 17 gram(s)= 15 mL, Oral, qDay, PRN [place] 325- 5 mg oral tablet, 1 tab(s), [...] DARLING EDWARDS MD on 07/12/2022 09:57 AM [id number] Note ORIGINAL EXAMINATION: ONE XRAY VIEW OF [...] 07/12/2022 8:41:07 AM Ordering Provider: TEQUILA YOUNG [id number] Note Date of Service 07/12/2022 Split/shared visit [...] and equal. Left tricep 2.5/5, bicep 3.5/5, senior front end web developer 4/5, bilateral intrinsics are strong. Negative Pierre's. [...] pain post fall. She was taken to [facility] by EMS found to have cervical spine injury and transferred to [place] ED. Stat MRI completed and patient was [...] Elevate head of bed in reverse Trendelenburg Shalnii brace to remain on at all times Please refer to Dr. Matthews's addendum for treatment plan Discussed case with ICU nurse practitioner [1] History and Physical; NITA MADERA 07/11/2022 18:17 EDT Digitally Signed by NITA MADERA on 07/12/2022 05:53 AM [id number] Note ORIGINAL EXAMINATION: ONE XRAY VIEW OF [...] Date: 07/12/2022 8:41:07 AM Ordering Provider: TEQUILA [facility]08-29-2022 Note ORIGINAL EXAMINATION: ONE XRAY VIEW OF [...] Sign Date: 07/12/2022 7:52:46 AM Ordering Provider: [address]29-2022 Note ORIGINAL EXAMINATION: ONE XRAY VIEW [...] by: Eder Clark MD Preliminary Report By: Eedr Clark MD Electronically signed By Eder Clark MD Dictated Date: 07/12/2022 7:48:36 AM Prelim Date: 07/12/2022 7:52:46 AM Sign Date: 07/12/2022 7:52:46 AM Ordering Provider: [address]29-2022 Note Date of Service 07/12/2022 Split/shared [...] and equal. Left tricep 2.5/5, bicep 3.5/5, senior front end web developer 4/5, bilateral intrinsics are strong. Negative Pierre's. [...] pain post fall. She was taken to [facility] by EMS found to have cervical spine injury and transferred to [place] ED. Stat MRI completed and patient was [...] by NITA MADERA on 07/12/2022 05:53 AM [id number] Note ORIGINAL EXAMINATION: ONE XRAY VIEW OF [...] Sign Date: 07/11/2022 7:30:42 PM Ordering Provider: NITAFBABY MADERA [id number] Note ORIGINAL EXAMINATION: ONE XRAY VIEW OF [...] 07/11/2022 7:28:52 PM Ordering Provider: NITA MADERA [id number] History and physical note Date of Service 07/11/2022 Chief Complaint Fall, neck pain History of Present Illness Mrs. Ramirez is a 71-year-old female with a past medical history of hypertension, obesity, hyperlipidemia, COPD, severe restrictive airway disease follows with [place] pul[facility]ology, noninsulin-dependent type 2 diabetes, venous insufficiency, [...] precautions have been maintained. Patient taken to [facility]. She was noted to have a significant cervical spine injury and transferred to [place] ED for further evaluation and trauma work-up. Dr. Matthews was contacted and stat MRI was completed. This shows significant ligamentous disruption, dislocated and distracted fracture of C6-C7. Shalini brace was placed on the patient in the ED by Michelle [email or web address], myself and ED nurses. Head andneck were [...] strength noted to be unequal. Bicep/tricep and senior front end web developer 3.5/5 on the left, strong on the [...] pain post fall. She was taken to [facility] by EMS found to have cervical spine injury and transferred to [place] ED. Stat MRI completed and patient was [...] completed regarding recommendations for treatment Consult to supervisor cutting department for assistance with medical management and surgical [...] by NITA MADERA on 07/11/2022 06:29 PM [id number] Note ORIGINAL EXAMINATION: ONE XRAY VIEW OF [...] Date: 07/11/2022 7:30:42 PM Ordering Provider: NITA MADERAMi[facility] [id number] Evaluation + Plan noteExtracted from: Title:History and Physical Author:SHIRIN MADERA DOCUMENTATION ENGINEER-FITTER WELDER Date:07/11/22 71-year-old female sustained a unwitnessed mechanical fall over her walker landing on left side and face 07/11/2022. Denies LOC. Developed immediate neck pain post fall. She was taken to [facility] by EMS found to have cervical spine injury and transferred to [place] ED. Stat MRI completed and patient was [...] completed regarding recommendations for treatment Consult to supervisor cutting department for assistance with medical management and surgical clearance. Discussed case with ICU nurse practitioner Future Appointments Appointment Date:08/10/2022 11:00:00 AM Scheduled Provider: Location:[facility] Appointment Type:NS Post Op Future Scheduled Tests Laboratory* A1C Hemoglobin 01/06/22 * Lipid Profile 01/06/22 * Complete Metabolic Panel 01/06/22 Radiology* XR Spine Cervical AP/LAT 07/27/22 [facility] 08-28-2022 Note ORIGINAL HISTORY: Fracture COMPARISON: [...] 07/11/2022 1:13:40 PM Ordering Provider: FABIANO MARTIN [facility] [id number] Note ORIGINAL HISTORY: Pain, fall COMPARISON: No [...] 07/11/2022 9:14:35 AM Ordering Provider: MARIANA RAMOS [facility]08-28-2022 Note ORIGINAL HISTORY: Neck pain, fall [...] Sign Date: 07/11/2022 9:13:21 AM Ordering Provider: [address]28-2022 Note ORIGINAL HISTORY: Pain COMPARISON: No [...] Sign Date: 07/11/2022 9:03:50 AM Ordering Provider: [address]28-2022 Note ORIGINAL HISTORY: Fall COMPARISON: 04 [...] Date: 07/11/2022 9:01:52 AM Ordering Provider: MARIANA [facility]08-28-2022 Note ORIGINAL HISTORY: Neck pain, fall this [...] Sign Date: 07/11/2022 9:13:21 AM Ordering Provider: [facility]08-28-2022 Note ORIGINAL HISTORY: Pain COMPARISON: No [...] Sign Date: 07/11/2022 9:03:50 AM Ordering Provider: [facility]08-28-2022 Note ORIGINAL HISTORY: Pain, fall COMPARISON: [...] Sign Date: 07/11/2022 9:14:35 AM Ordering Provider: [facility]08-28-2022 Note ORIGINAL HISTORY: Fall COMPARISON: 04 [...] Sign Date: 07/11/2022 9:01:52 AM Ordering Provider: [facility]02-23-2022 Evaluation + Plan note Future Scheduled Tests Laboratory* A1C Hemoglobin 01/06/22 * Lipid Profile 01/06/22 * Complete Metabolic Panel 01/06/22 [facility] 01-21-2022 Hospital Discharge instructions Patient Education [...] keep having episodes of high blood sugar. 2094-2179 [employer] [address] [place] [address], [place] [address]. All rights reserved. This information is not [...] in vomit, stools (black or red color) 9911-[address] [employer] [place] [address]. All rights reserved. This information is not intended as a substitute for professional medical care. Always follow yourhealthcare professional's instructions. Follow Up Care 12/04/2021 08:14:09 With:[facility] Address: [phone] When:2-4 days [facility] 11-02-2021 Hospital Discharge instructions Patient Education [...] and fish, and low-fat dairy products. [employer] [address] [place], [place] [id number]. All rights reserved. This information is not intended as a substitute for professional medical care. Always follow [facility] professional's instructions. 09/15/2021 20:06:55 Medical Screening [...] back to this facility in person. [employer] [address] [place] [address]. All rights reserved. This information is not intended as a substitute for professional medical care. Always follow yourhealthcare professional's instructions. Follow Up Care 09/15/2021 18:07:55 With:BARBER CARLISLE Address:Unknown When:Within 1 Day(s) Comments:Follow-up as scheduled with your doctor tomorrow.Continue all routine medications.Return to the ED if symptoms worsen. [facility] Quero Rockaluation + Plan note Future Appointments Appointment Date:09/16/2021 01:30:00 PM Scheduled Provider:BARBER CARLISLE Location:[facility] Appointment Type:[facility] [employer] Rockaluation + Plan note Future Appointments Appointment Date:03/22/2022 02:00:00 PM Scheduled Provider:BARBER CARLISLE Location:[facility] Appointment Type:[facility] [employer] Rock[employer]uation + Plan note Future Appointments Appointment Date:07/27/2022 09:30:00 AM Scheduled Provider: Location:[facility] Appointment Type:NS Post Op Future Scheduled Tests Laboratory* A1C Hemoglobin 01/06/22 * Lipid Profile 01/06/22 * Complete Metabolic Panel 01/06/22 [place] [facility] evaluation + Plan note Future Appointments Appointment Date:08/12/2022 08:30:00 AM Scheduled Provider: Location:[facility] Appointment Type:NS Post Op Future Scheduled Tests Laboratory* A1C Hemoglobin 01/06/22 * Lipid Profile 01/06/22 * Complete Metabolic Panel 01/06/22 Radiology* XR Spine Cervical AP/LAT 07/27/22 [place] [facility] evaluation + Plan note Future Appointments Appointment Date:09/09/2022 10:00:00 AM Scheduled Provider: Location:[facility] Appointment Type:NS Post Op Future Scheduled Tests Laboratory* A1C Hemoglobin 01/06/22 * Lipid Profile 01/06/22 * Complete Metabolic Panel 01/06/22 [facility] Evaluation + Plan note Future Appointments Appointment Date:10/05/2022 01:30:00 PM Scheduled Provider:TRACE MATTHEWS MD Location:[facility] Appointment Type:NS Post Op Future Scheduled Tests Laboratory* A1C Hemoglobin 01/06/22 * Lipid Profile 01/06/22 * Complete Metabolic Panel 01/06/22 Radiology* XR Spine Thoracic 2 Views 09/09/22 * XR Spine Cervical AP/LAT/Flex/Ext 09/09/22 [facility] Evaluation + Plan note Future Appointments Appointment Date:10/26/2022 03:00:00 PM Scheduled Provider: Location:[facility] Appointment Type:CT Spine Cervical w/o Contrast Appointment Date:11/04/2022 02:15:00 PM Scheduled Provider:TRACE MATTHEWS MD Location:[facility] Appointment Type:Telephone Future Scheduled Tests Laboratory* A1C Hemoglobin 01/06/22 * Lipid Profile 01/06/22 * Complete Metabolic Panel 01/06/22 Radiology* CT Spine Cervical w/o Contrast 10/26/22 [facility] Evaluation + Plan note Future Appointments Appointment Date:11/04/2022 02:15:00 PM Scheduled Provider:TRACE MATTHEWS MD Location:[facility] Appointment Type:Telephone Future Scheduled Tests Laboratory* A1C Hemoglobin 01/06/22 * Lipid Profile 01/06/22 * Complete Metabolic Panel 01/06/22 [facility] Evaluation + Plan note Future Appointments Appointment Date:08/19/2023 02:30:00 PM Scheduled Provider: Location:[facility] Appointment Type:MRI Pancreas Future Scheduled Tests Radiology* MRI Pancreas 08/19/23 [facility] evaluation noteNo assessment information available [facility] Work Phone: evaluation note* Diagnosis Onset Date Resolution Status Iron deficiency anemia acute Vitamin B12 deficiency acute Thrombocytopenia chronic [facility] Work Phone: evaluation note* Diagnosis Onset Date Resolution Status Hyperglycemia acute Metabolic encephalopathy acu te Acute on chronic respiratory failure with hypoxia and hypercapnia chronic COPD (chronic obstructive pulmonary disease) chronic [facility] Work Phone: Evaluation note* Diagnosis Onset Date Resolution Status Anemia acute Cardiomyopathy acute Congestive heart failure (CHF) acute Hyperglycemia acute Lower extremity edema acute Lung nodules acute Metabolic encephalopathy acu te On mechanically assisted ventilation acute Pneumonia acute Respiratory disorder with ventilator dependence acute Acute on chronic respiratory failure with hypoxia and hypercapnia chronic COPD (chronic obstructive pulmonary disease) [facility] Work Phone: Evaluation [...] anemia chron ic Lung nodules chronic Thrombocytopenia [facility] Work Phone: Evaluation note* Diagnosis Onset Date Resolution Status Iron deficiency anemia chron ic Thrombocytopenia chronic Anemia acute Congestive heart failure (CHF) acute COPD (chronic obstructive pulmonary disease) chronic Lung nodules chronic Metabolic encephalopathy res olved Pneumonia resolved Breast nodule acute Neck mass acute Iron deficiency anemia chron ic Lung nodules chronic Thrombocytopenia [facility] Work Phone: Evaluation [...] nodules chronic Thrombocytopenia chronic Breast nodule acute [facility] Work Phone: Evaluation note* Diagnosis Onset Date Resolution Status Breast nodule acute Neck mass acute Iron deficiency anemia chron ic Lung nodules chronic Thrombocytopenia chronic Breast nodule acute Breast nodule acute Neck mass acute Iron deficiency anemia chron ic Lung nodules chronic Thrombocytopenia [facility] Work Phone: Evaluation note* Diagnosis Onset Date Resolution Status Breast nodule acute Neck mass acute Iron deficiency anemia chron ic Lung nodules chronic Thrombocytopenia [facility] Work Phone: Evaluation note* Diagnosis Onset Date Resolution Status Hematuria acute Iron deficiency anemia chron ic Lung nodules chronic Thrombocytopenia [facility] Work Phone: Evaluation note* Diagnosis Colovaginal fistula- Primary Colovaginal fistula Acquired thrombocytopenia (CMS/HCC) Secondary thrombocytopenia Encounter for preprocedural cardiovascular examination Dilated cardiomyopathy (CMS/HCC) Other primary cardiomyopathies Dilated cardiomyopathy (CMS/HCC) Other primary cardiomyopathies documented in this encounter [facility] Work Phone: Evaluation note* Diagnosis Diverticulitis- Primary Diverticulitis of colon (without mention of hemorrhage) Colovaginal fistula- Primary Diverticulitis Diverticulitis of colon (without mention of hemorrhage) documented in this encounter [facility] Work Phone: Evaluation note* Diagnosis Preop cardiovascular exam- Primary Pre-operative cardiovascular examination Chronic systolic heart failure (CMS/HCC) Chronic systolic heart failure documented in this encounter [facility] Work Phone: Evaluation note* Diagnosis Encounter for preadmission testing documented in this encounter [facility] Work Phone: Evaluation note* Diagnosis Encounter for preadmission testing documented in this encounter [facility] Work Phone: Hospital course Narrative No data available for this section [facility] Hospital Discharge instructions No data available for this section [facility] Hospital Discharge instructions Additional Instructions Your [...] have a progression or worsening of your symptoms.[facility] Work Phone: Progress note No data available for this section [facility] Summary Purpose Family History No Family History Records Found Sister Name Dates Details Family history of malignant neoplasm of breast(V16.3, Z80.3) Status:Active Relationship Condition Age at Onset Recorded Date/T obinna sister Malignant neoplasm of breast Unknown grandmother Diabetes mellitus Unknown Advance Directives No Advanced Directives Records Found Advance Directive Response Recorded Date/ Time Living Will No November 24 9:00am Power of Cathead Operator No November 24, 2021 9:00am Advance Directive Response Recorded Date/ Time Living Will No November 24 8:00am Power of Cathead Operator No November 24, 2021 8:00am Advance Directive Response Recorded Date/ Time Living Will No April 19, 2023 4 :46pm Power of Cathead Operator No April 19, 2023 4:46pm Advance Directive Response Recorded Date/ Time Living Will No July 14 4:04pm Power of Cathead Operator No July 14 4:04pm Advance Directive Response Recorded Date/ Time Living Will No August 09, 2023 11:01pm Power of Cathead Operator No July 11:01pm Advance Directive Response Recorded Date/ Time Living Will No September 14 10:49pm Power of Cathead Operator No September 14, 2023 10:49pm Latest [...] Will No September 14 9:49pm Power of Cathead Operator No September 14, 2023 9:49pm Latest [...] Procedures [place] 12 [place] [address] [place] [address] Referral ID Status Reason Start Date Expiration Date V isits Requested Visits Authorized [id number] Pending Review 10/28/2023 10/27/2024 1 1 Specialty Diagnoses / Procedures Referred By Contac t Referred To Contact Diagnoses Colovaginal fistula Nancy Treviño, DOCUMENTATION ENGINEER-FITTER WELDER [address] [facility] Department [place] [address] Referral ID Status Reason Start Date Expiration Date V isits Requested Visits Authorized [id number] Pending Review 09/28/2023 09/27/2024 1 1 Additional Source Comments INFORMATION SOURCE (unrecogn ized section and content) DATE CREATED AUTHOR 05/09/2018 [employer] DATE CREATED AUTHOR AUTHOR'S ORGANIZ ATION 07/14/2020 [employer] DATE CREATED AUTHOR AUTHOR'S ORGANIZ ATION 12/01/2021 [facility] DATE CREATED AUTHOR AUTHOR'S ORGANIZ ATION 11/06/2022 [employer] [facility] DATE CREATED AUTHOR AUTHOR'S ORGANIZ ATION 09/16/2023 [facility] ([place] DATE CREATED AUTHOR AUTHOR'S ORGANIZ ATION 10/19/2023 [facility] DATE CREATED AUTHOR AUTHOR'S ORGANIZ ATION 11/13/2023 [facility] DATE CREATED AUTHOR AUTHOR'S ORGANIZ ATION 07/25/2024 [facility] DATE CREATED AUTHOR AUTHOR'S ORGANIZ ATION 09/26/2025 [facility] Care Team (unrecognized sect ion and content) Care Team Personnel Name: BARBER CARLISLE Position: P4 Advanced Practice Nurse Member Role: Primary Care Physician Address: Address: [address] [facility] [address] [facility] [place] [address] [place] Name: MARIANA RAMOS MD Position: ED Physician Member Role: Attending Physician Address: Address: [address] [place] [id number] Care Team Related Persons Name: JOCY RUIZ Address: Home [address] [place], [place] [phone] [place] Name: JOCY RUIZ Address: Home [address] [place], [place] [phone] [place] Name: JOCY RUIZ Address: Home [address] [place], [place] [phone] [place] Name: JOCY RUIZ Address: Home [address] [place], [place] [phone] [place] Name: JOCY RUIZ Address: Home [address] [place], [place] [phone] [place] Name: JOCY RUIZ Address: Home [address] [facility] [place] [place] [phone] [place] Name: JOCY RUIZ Address: Home [address] [place], [place] [phone] [place] Name: JOCY RAMIREZ Care Team Personnel Name: BARBER CARLISLE Position: P4 Advanced Practice Nurse Member Role: Primary Care Physician Address: Address: [address] [facility] [place] [address]- Care Team Related Persons Name: JOCY RUIZ Address: Home [address] [place] [phone] [place] Name: JOCY RUIZ Address: Home [address] [place], [place] [phone] [place] Name: JOCY RUIZ Address: Home [address] [place], [place] [phone] [place] Name: JOCY RUIZ Address: Home [address] [place] [place], [place] [phone] [place] Name: JOCY RUIZ Address: Home [address] [place] [place], [place] [phone] [place] Name: JOCY RUIZ Address: Home [address] [place] [place], [place] [phone] [place] Name: JOCY RUIZ Address: Home [address] [place] [place], [place] [phone] [place] Name: JOCY RAMIREZ Care Team Personnel Name: BARBER CARLISLE Position: P4 Advanced Practice Nurse Med Service: Active Provider Member Role: Primary Care Physician Address: Address: [address] [place], [place] [address] Care Team Related Persons Name: JOCY RUIZ Address: Home [address] [place] [phone] [place] Name: JOCY RUIZ Address: Home [address] [place] [phone] [place] Name: JOCY RUIZ Address: Home [address] [place] [phone] [place] Name: JOCY RUIZ Address: Home [address] [place], [place] [phone] [place] Name: JOCY RUIZ Address: Home [address] [place] [phone] [place] Name: JOCY RUIZ Address: Home [address] [place] [phone] [place] Name: JOCY RUIZ Address: Home [address] [place] [phone] [place] Name: JOCY RAMIREZ Care Team Personnel Name: BARBER CARLISLE Position: P4 Advanced Practice Nurse Med Service: Active Provider Member Role: Primary Care Physician Address: Address: [address] [place], [place] [address] Care Team Related Persons Name: JOCY RUIZ Address: Home [address] [place] [phone] [place] Name: JOCY RUIZ Address: Home [address] [place] [phone] [place] Name: JOCY RUIZ Address: Home [address] [place], [place] [phone] [place] Name: JOCY RUIZ Address: Home [address] [place] [place], [place] [phone] [place] Name: JOCY RUIZ Address: Home [address] [place], [place] [phone] [place] Name: JOCY RUIZ Address: Home [address] [place] [place], [place] [phone] [place] Name: JOCY RUIZ Address: Home [address] [place], [place] [phone] [place] Name: JOCY RAMIREZ Care Team Personnel Name: BARBER CARLISLE Position: P4 Advanced Practice Nurse Med Service: Active Provider Member Role: Primary Care Physician Address: Address: [address] [place] [id number] Care Team Related Persons Name: JOCY RUIZ Address: Home [address] [place] [place] [phone] [place] Name: JOCY RUIZ Address: Home [address] [place] [phone] [place] Name: JOCY RUIZ Address: Home [address] [place] [phone] [place] Name: JOCY RUIZ Address: Home [address] [place] [phone] [place] Name: JOCY RUIZ Address: Home [address] [place] [phone] [place] Name: JOCY RUIZ Address: Home [address] [place] [phone] [place] Name: JOCY RUIZ Address: Home [address] [place] [phone] [place] Name: JOCY RAMIREZ Care Team Personnel Name: BARBER CARLISLE Position: P4 Advanced Practice Nurse Member Role: Primary Care Physician Address: Address: [address] [place], [place] [address] Care Team Related Persons Name: RUIZ, JOCY A Address: [address] [place] [phone] [place] Name: JOCY RUIZ Address: Home [address] [place] [place] [phone] [place] Name: JOCY RUIZ Address: Home [address] [place], [place] [phone] [place] Name: JOCY RUIZ Address: Home [address] [place], [place] [phone] [place] Name: JOCY RUIZ Address: Home [address] [place] [place], [place] [phone] [place] Name: JOCY RUIZ Address: Home [address] [place], [place] [phone] [place] Name: JOCY RUIZ Address: [address] [place] [place], [place] [phone] [place] Name: JOCY RAMIREZ Care Team Personnel Name: BARBER CARLISLE Position: P4 Advanced Practice Nurse Member Role: Primary Care Physician Address: Address: [address] Care Team Related Persons Name: JOCY RUIZ Address: Home [address] [place] [place], [place] [phone] [place] Name: JOCY RUIZ Address: [address] [place] [place], [place] [phone] [place] Name: JOCY RUIZ Address: Home [address] [place] [phone] [place] Name: JOCY RUIZ Address: Home [address] [place] [phone] [place] Name: JOCY RUIZ Address: Home [address] [place] [phone] [place] Name: JOCY RUIZ Address: Home [address] [place], [place] [phone] [place] Name: JOCY RUIZ Address: Home [address] [place] [phone] [place] Name: JOCY RAMIREZ Care Team Personnel Name: BARBER CARLISLE Position: P4 Advanced Practice Nurse Member Role: Primary Care Physician Address: Address: [address] Care Team Related Persons Name: JOCY RUIZ Address: Home [address] [place] [phone] [place] Name: JOCY RUIZ Address: Home [address] [place] [phone] [place] Name: JOCY RUIZ Address: Home [address] [place] [phone] [place] Name: JOCY RUIZ Address: Home [address] [place] [phone] [place] Name: JOCY RUIZ Address: Home [address] [place] [phone] [place] Name: JOCY RUIZ Address: Home [address] [place] [phone] [place] Name: JOCY RUIZ Address: Home [address] [place] [phone] [place] Name: JOCY RAMIREZ Care Team Personnel Name: BARBER CARLISLE APRN-SILVINO Position: P4 Advanced Practice Nurse Member Role: Primary Care Physician Address: Address: [address] [place], [place] [address] Care Team Related Persons Name: JOCY RUIZ Address: Home [address] [place], [place] [phone] [place] Name: JOCY RUIZ Address: Home [address] [place] [phone] [place] Name: JOCY RUIZ Address: Home [address] [place] [phone] [place] Name: JOCY RUIZ Address: Home [address] [place] [phone] [place] Name: JOCY RUIZ Address: Home [address] [place] [phone] [place] Name: JOCY RUIZ Address: Home [address] [place], [place] [phone] [place] Name: JOCY RUIZ Address: Home [address] [place], [place] [phone] [place] Name: JOCY RAMIREZ Goals (unrecognized section and content) Goals may be documented in a n alternate section Care Teams (unrecognized sec tion and content) Team Status: Active Member Role Status Dates Barber Carlisle AUDIOMETRIC TECHNICIAN, AUDIOMETRIC TECHNICIAN-C Primary Care Provider Active Team Status: Inactive Member Role Status Dates Barber Orestes AUDIOMETRIC TECHNICIAN, AUDIOMETRIC TECHNICIAN-C Primary Care Provider, Referri ng Provider Active Dr. Delfin Jeffries MD Attending Provider Active Team Status: Inactive Member Role Status Dates Barber Orestes AUDIOMETRIC TECHNICIAN, AUDIOMETRIC TECHNICIAN-C Primary Care Provider Active Stef [place] Attending Provider Active Team Status: Active Member Role Status Dates Barber Orestes AUDIOMETRIC TECHNICIAN, AUDIOMETRIC TECHNICIAN-C Primary Care Provider Active Dr. Delfin Jeffries MD Attending Provider, Referring Pro vider Active Team Status: Active Member Role Status Dates Barber Orestes AUDIOMETRIC TECHNICIAN, AUDIOMETRIC TECHNICIAN-C Primary Care Provider Active Jonathan [place] MD Attending Provider Active Team Status: Active Member Role Status Dates Barber Carlisle AUDIOMETRIC TECHNICIAN, AUDIOMETRIC TECHNICIAN-C Primary Care Provider Active Dr. Ellis Tsai MD Emergency Provider Active Dr. Rebecca Resendiz DO Admit Provider, Attending Provide r Active Team Status: Active Member Role Status Dates Barber Carlisle AUDIOMETRIC TECHNICIAN, AUDIOMETRIC TECHNICIAN-C Primary Care Provider Active Dr. Ellis Tsai MD Emergency Provider Active Dr. Rebecca Resendiz DO Admit Provider, Att ending Provider, Other Provider Active Dr. Serge Banks MD Other Provider Active Dr. Ajit Mcgill , Other Provider Active Dr. Martín Monique MD Other Provider Active Dr. Krzysztof Pennington MD Other Provider Active Viji Richey AUDIOMETRIC TECHNICIAN, AUDIOMETRIC TECHNICIAN-C Other Provider Active Team Status: Active Member Role Status Dates Barber Orestes AUDIOMETRIC TECHNICIAN, AUDIOMETRIC TECHNICIAN-C Primary Care Provider Active Dr. Ellis Tsai MD Emergency Provider Active Dr. Rebecca Resendiz DO Admit Provider, Other Provider Ac tive Dr. Serge Banks MD Other Provider Active Dr. Ajit Mcgill , Other Provider Active Dr. Martín Monique MD Attending Provider, Other Pro vider Active Dr. Krzysztof Pennington MD Other Provider Active Viji Richey AUDIOMETRIC TECHNICIAN, AUDIOMETRIC TECHNICIAN-C Other Provider Active Dr. Hernando Padron MD Other Provider Active Dr. Thomas Ahumada MD Other Provider Active Team Status: Active Member Role Status Dates Barber Carlisle AUDIOMETRIC TECHNICIAN, AUDIOMETRIC TECHNICIAN-C Primary Care Provider Active Dr. Miroslava Gonzalez MD Attending Provider Active Team Status: Active Member Role Status Dates Barber Carlisle AUDIOMETRIC TECHNICIAN, AUDIOMETRIC TECHNICIAN-C Primary Care Provider Active Dr. Ellis Tsai MD Emergency Provider Active Dr. Rebecca Martín , DO Admit Provider, Other Provider Ac tive Dr. Serge Banks MD Other Provider Active Dr. Ajit Mcgill , DO Other Provider Active Dr. Martín Monique MD Other Provider Active Dr. Krzysztof Pennington MD Other Provider Active Viji Richey NP, AUDIOMETRIC TECHNICIAN-C Other Provider Active Dr. Hernando Padron MD Attending Provider, Other Provid er Active Dr. Thomas Ahumada MD Other Provider Active Team Status: Active Member Role Status Meche Carlisle NP, AUDIOMETRIC TECHNICIAN-C Primary Care Provider Active Dr. Ellis Tsai MD Emergency Provider Active Dr. Rebecca Resendiz , DO Admit Provider, Other Provider Ac tive Dr. Serge Banks MD Other Provider Active Dr. Ajit Mcgill , Other Provider Active Dr. Martín Monique MD Other Provider Active Dr. Krzysztof Pennington MD Other Provider Active Viji Richey NP, AUDIOMETRIC TECHNICIAN-C Other Provider Active Dr. Hernando Padron MD Other Provider Active Dr. Thomas Ahumada MD Other Provider Active Dr. Miroslava Gonzalez MD Attending Provider Active Team Status: Active Member Role Status Meche Carlisle AUDIOMETRIC TECHNICIAN, AUDIOMETRIC TECHNICIAN-C Primary Care Provider Active Dr. oMise Austin MD Attending Provider Active Team Status: Active Member Role Status Meche Carlisle NP, AUDIOMETRIC TECHNICIAN-C Primary Care Provider Active Dr. Ellis Tsai MD Emergency Provider Active Dr. Rebecca Resendiz , DO Admit Provider, Other Provider Ac tive Dr. Serge Banks MD Other Provider Active Dr. Ajit Mcgill , Other Provider Active Dr. Martín Monique MD Other Provider Active Dr. Krzysztof Pennington MD Other Provider Active Viji Richey NP, AUDIOMETRIC TECHNICIAN-C Other Provider Active Dr. Hernando Padron MD Other Provider Active Dr. Thomas Ahumada MD Other Provider Active Dr. Pratima Jaime MD Other Provider Active Dr. Miroslava Gonzalez MD Attending Provider Active Team Status: Active Member Role Status Meche Carlisle NP, AUDIOMETRIC TECHNICIAN-C Primary Care Provider Active Dr. Ellis Tsai MD Emergency Provider Active Dr. Rebecca Resendiz , DO Admit Provider, Other Provider Ac tive Dr. Serge Banks MD Attending Provider, Other Provid er Active Dr. Ajit Mcgill , DO Other Provider Active Dr. Martín Monique MD Other Provider Active Dr. Krzysztof Pennington MD Other Provider Active Viji Richey AUDIOMETRIC TECHNICIAN, AUDIOMETRIC TECHNICIAN-C Other Provider Active Dr. Hernando Padron MD Other Provider Active Dr. Thomas Ahumada MD Other Provider Active Dr. Pratima Jaime MD Other Provider Active Team Status: Active Member Role Status Meche Carlisle AUDIOMETRIC TECHNICIAN, AUDIOMETRIC TECHNICIAN-C Primary Care Provider Active Dr. Ellis Tsai MD Emergency Provider Active Dr. Rebecca Resendiz , Admit Provider, Other Provider Ac tive Dr. Serge Banks MD Other Provider Active Dr. Ajit Mcgill DO Other Provider Active Dr. Martín Monique MD Other Provider Active Dr. Krzysztof Pennington MD Other Provider Active Viji Richey AUDIOMETRIC TECHNICIAN, AUDIOMETRIC TECHNICIAN-C Other Provider Active Dr. Hernando Padron MD Other Provider Active Dr. Thomas Ahumada MD Other Provider Active Dr. Pratima Jaime MD Attending Provider, Other Provid er Active Team Status: Inactive Member Role Status Meche Carlisle AUDIOMETRIC TECHNICIAN, AUDIOMETRIC TECHNICIAN-C Primary Care Provider Active Jonathanfausto [place] MD Attending Provider Active Team Status: Inactive Member Role Status Meche Carlisle AUDIOMETRIC TECHNICIAN, AUDIOMETRIC TECHNICIAN-C Primary Care Provider Active Dr. Ellis Tsai MD Emergency Provider Active Dr. Rebecca Resendiz , Admit Provider, Other Provider Ac tive Dr. Serge Banks MD Other Provider Active Dr. Ajit Mcgill , Other Provider Active Dr. Martín Monique MD Other Provider Active Dr. Krzysztof Pennington MD Other Provider Active Viji Richey NP, AUDIOMETRIC TECHNICIAN-C Other Provider Active Dr. Hernando Padron MD Other Provider Active Dr. Thomas Ahumada MD Other Provider Active Dr. Pratima Jaime MD Attending Provider Active Team Status: Active Member Role Status Meche Carlisle AUDIOMETRIC TECHNICIAN, AUDIOMETRIC TECHNICIAN-C Primary Care Provider Active Dr. Moise Austin MD Attending Provider Active Dr. Rebecca Resendiz , Referring Provider Active Team Status: Active Member Role Status Meche Carlisle AUDIOMETRIC TECHNICIAN, AUDIOMETRIC TECHNICIAN-C Primary Care Provider Active Dr. Ellis Tsai MD Emergency Provider Active Dr. Rebecca Resendiz , Admit Provider, Other Provider Ac tive Dr. Serge Banks MD Other Provider Active Dr. Ajit Mcgill , Other Provider Active Dr. Martín Monique MD Attending Provider, Other Pro vider Active Dr. Krzysztof Pennington MD Other Provider Active Viji Richey AUDIOMETRIC TECHNICIAN, AUDIOMETRIC TECHNICIAN-C Other Provider Active Dr. Hernando Padron MD Other Provider Active Dr. Thomas Ahumada MD Other Provider Active Dr. Pratima Jaime MD Referring Provider Active Team Status: Active Member Role Status Meche Carlisle AUDIOMETRIC TECHNICIAN, AUDIOMETRIC TECHNICIAN-C Primary Care Provider Active Dr. Ellis Tsai MD Emergency Provider Active Dr. Rebecca Resendiz , Admit Provider, Other Provider Ac tive Dr. Serge Banks MD Attending Provider, Other Provid er Active Dr. Ajit Mcgill DO Other Provider Active Dr. Martín Monique MD Other Provider Active Dr. Krzysztof Pennington MD Other Provider Active Viji iRchey AUDIOMETRIC TECHNICIAN, AUDIOMETRIC TECHNICIAN-C Other Provider Active Dr. Hernando Padron MD Other Provider Active Dr. Thomas Ahumada MD Other Provider Active Dr. Pratima Jaime MD Referring Provider, Other Provid er Active Team Status: Inactive Member Role Status Meche Carlisle AUDIOMETRIC TECHNICIAN, AUDIOMETRIC TECHNICIAN-C Primary Care Provider Active Dr. Delfin Jeffries MD Other Provider Active TORRIE COLLAZO Attending Provider, Referring Provider Active Team Status: Inactive Member Role Status Meche Carlisle AUDIOMETRIC TECHNICIAN, AUDIOMETRIC TECHNICIAN-C Primary Care Provider, Referri ng Provider Active Dr. Sharmila Jackson MD Attending Provider Active Team Status: Inactive Member Role Status Meche Carlisle AUDIOMETRIC TECHNICIAN, AUDIOMETRIC TECHNICIAN-C Primary Care Provider Active Dr. Sharmila Jackson [...] Dr. Alecia Navarrete MD Attending Provider Active Vending Machine Filler Relationship Specialty Start Date End Date Barber Carlisle, DOCUMENTATION ENGINEER-FITTER WELDER [address] [place] [id number] PCP - General 07/04/20 Team Status: Active [...] Sr. , DO Primary Care Provider Active Vending Machine Filler Relationship Specialty Start Date End Date Barber Carlisle FREDY Morales PCP - General 07/04/20 Vending Machine Filler Relationship Specialty Start Date End Date Barber Carlisle FREDY Morales [address] [place] [address] PCP - General Family Medicine 10/27/23 Vending Machine Filler Relationship Specialty Start Date End Date Barber Carlisle FREDY Morales [address] [place] [address] PCP - General Family Medicine 10/27/23 Vending Machine Filler Relationship Specialty Start Date End Date Orestes Barber FREDY Morales [address] [place] [address] PCP - General Family Medicine 10/27/23 Reason for Visit (unrecogniz ed section and content) Specialty Diagnoses / Procedures Referred By Contac t Referred To Contact Diagnoses Colovaginal fistula Intestinal Abscess Procedures [place] [address] [facility] [place] [address] [facility] [phone] [id number] [place] [address] Referral ID Status Reason Start Date Expiration Date Visits Re quested Visits Authorized [id number] 1 1 Specialty Diagnoses / Procedures Referred By Contac t Referred To Contact Diagnoses Encounter for preadmission testing Procedures [place] 12 [place] [id number] [place] [address] Referral ID Status Reason Start Date Expiration Date V isits Requested Visits Authorized [id number] Pending Review 10/28/2023 10/27/2024 1 1 Scheduled [...] to beta doris. 1323 (Given - Provider: Aslhey Orourke RN) metoprolol tartrate (Lopressor) injection 5 [...] BE BASED ON THE PRIMARY CLINICAL RECORDS. [employer] provides no warranty or guarantee of the accuracy or completeness of information in this document.
[2025-10-30 08:43] LABS: Hematocrit 32.4 % (37-47); Hemoglobin 9.5 g/dL (12.0-15.0)
== END ==
LOC: OLS.ACH 05:00
PROVIDERS: PCP Internal Medicine; Visit Provider Internal Medicine
DX: D50.9 Iron deficiency anemia, unspecified (principal)
CPT/HCPCS: 36415; 85014; 85018

== ENCOUNTER 2025-10-30 14:06 | Emergency (ER) | payer MEDICARE, MEDICAID, SELFPAY ==
[2025-10-30] VITALS (7 sets, daily range): BP systolic 103–116; BP diastolic 48–66; PULSE 58–65; RESP 16–18; TEMP 37.1; O2SAT 100; BMI 28.6
[2025-10-30 15:31] LABS: Mucous, Urine 0 SEEN /hpf (<or=2+); Squamous Epithelial Cells - UA 0 SEEN /hpf (5-10)
[2025-10-30 15:32] LABS: Hematocrit 29.0 % (37-47); Hemoglobin 8.5 g/dL (12.0-15.0); Immature Granulocytes Count 0.020 X10^3/uL (0.0-0.0); Mean Corp Hgb Conc 29.3 g/dL (32-36); Mean Corpuscular Volume 92.9 fL (81-99); Mean Platelet Vol. 8.6 fl (6.2-12.0); NRBC Flagged by Analyzer 0 % (0-5); Platelet Count 111 K/mm3 (150-450); RBC Distribution Width CV 14.4 % (11.6-14.6); RBC Distribution Width SD 48.6 fl (35.1-43.9); Red Blood Count 3.12 M/mm3 (4.2-5.4); White Blood Count 4.5 K/mm3 (4.4-11.0)
[2025-10-30 15:35] LABS: Color, Urine Yellow (Yellow); Glucose, Dipstick Normal (Normal); Ketone-Dipstick Negative (Negative); Leukocyte Esterase-Dipstick 100 /ul (Negative); Nitrite-Dipstick Positive (Negative); Occult Blood-Urine 25 /ul (Negative); Protein-Dipstick 30 mg/dl (Negative); Specific Gravity, Urine 1.010 (1.002-1.030); Urine Bilirubin Dipstick 1 mg/dL (Negative)
--- NOTE | 2025-10-30 15:38 | EX.ED.DYSGE1 ---
HPI History of Present Illness Chief Complaint: Abd Pain Detail of Chief Complaint: Abdominal pain with abnormal CAT scan Informant: patient Onset/Context/Timing Onset: - (Onset of pain is uncertain. Patient is not a good informant even though she is oriented.) Context: - (Unknown) Timing: Continuous Quality: Pain Location: Left side of the abdomen Current Severity: Mild Maximum Severity: Moderate Worsened by: Palpation and movement Relieved by: Nothing Associated Symptoms Associated Symptoms: Reported constipation Narrative Narrative: Patient is a 74-year-old woman. She has history of colitis, COPD, congestive heart failure, fibromyalgia, fibroadenoma of the left breast, lung nodules, thrombocytopenia, iron deficiency anemia who was seen by Dr. Navarrete. She has an indwelling Barnes and was had indwelling Barnes for some time. She was seen today by Dr. Raya who ordered an outpatient CT of the abdomen and pelvis. CT interpreted radiologist revealed findings consistent with perforated distal descending and sigmoid diverticulitis including a 4.7 cm abscess inseparable from the sigmoid colon, bladder and uterus with findings that are consistent with fistulization to the bladder since there is air in the bladder and possible fistulization to the uterus. There is also mild bilateral hydronephrosis presumed related to the above bladder findings in the absence of any additional potential obstruction. This was documented in the body of the note. It is felt that this is due to the pathology noted in the colon and abscess. There is also a 10 cm indeterminate splenic mass and 11 mm indeterminate hepatic hypodensity noted. Patient is a very poor informant. She does not know why she is here. She states she had a CAT scan and was told she had to come here. She was driven here by a wire transfer clerk/show fear. She resides at facility is located in [facility]. Prior similar symptoms: No Recent Illness/Hospitalization: No [facility] Medical History Diabetes Former smoker Hypertension Colitis On mechanically assisted ventilation Lung nodules Pneumonia Acute on chronic respiratory failure with hypoxia and hypercapnia Respiratory failure with hypoxia Vitamin B12 deficiency Thrombocytopenia Iron deficiency anemia Other lack of coordination Muscle weakness (generalized) Other pancytopenia Other displaced fracture of sixth cervical vertebra, subsequent encounter for fracture with routine healing Insomnia, unspecified History of falling Personal history of nicotine dependence Personal history of malignant neoplasm of breast Other displaced fracture of seventh cervical vertebra, subsequent encounter for fracture with routine healing Urinary incontinence Dysphagia Primary osteoarthritis, left shoulder Primary osteoarthritis, right shoulder GERD (gastroesophageal reflux disease) Chronic respiratory failure with hypoxia COPD (chronic obstructive pulmonary disease) Venous insufficiency (chronic) (peripheral) Venous insufficiency 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 Myocardial infarction Atherosclerotic heart disease Essential hypertension Obstructive sleep apnea Pure hypercholesterolemia Type 2 diabetes mellitus with diabetic neuropathy Anemia Unspecified abnormalities of gait and mobility Home Medications ?Medication ?Instructions ?Recorded ?Last Taken ?Type acetaminophen 325 mg tablet 650 mg PO QHS PAIN 04/19/23 Unknown History ferrous sulfate 325 mg (65 mg 325 mg PO BID 05/04/23 Unknown History iron) tablet ondansetron HCl 4 mg tablet 4 mg PO Q8H PRN nausea and vomiting 05/04/23 Unknown History simethicone 80 mg chewable tablet 80 mg PO DAILY abdominal distention 05/04/23 Unknown History (Gas Relief (simethicone)) magnesium hydroxide 400 mg/5 mL 30 ml PO DAILY PRN constipation 08/09/23 Unknown History oral suspension amoxicillin 875 mg-potassium 1 tab PO BID 09/26/25 Unknown History clavulanate 125 mg tablet dicyclomine 20 mg tablet 20 mg PO .qid abdominal pain 09/26/25 Unknown History glimepiride 1 mg tablet 0.5 mg PO DAILY 09/26/25 Unknown History phenazopyridine 100 mg tablet 100 mg PO Q8H dysuria 09/26/25 Unknown History (Pyridium) sennosides 8.6 mg-docusate sodium 1 tab-cap PO QDAY constipation 09/26/25 Unknown History 50 mg capsule (Senna Plus) sertraline 25 mg tablet 25 mg PO QDAY 09/26/25 Unknown History acetaminophen 650 mg rectal 650 mg WI Q6H 10/30/25 Unknown History suppository carboxymethylcellulose sodium 0.5 1 drp ophthalmic (eye) BID 10/30/25 Unknown History % eye drops (Refresh Tears) ipratropium 0.5 mg-albuterol 3 mg ml continuous nebulization 10/30/25 Unknown History (2.5 mg base)/3 mL nebulization soln promethazine 25 mg tablet 25 mg PO TID PRN 10/30/25 Unknown History Allergy/AdvReac Type Severity Reaction Status Date / Time cyclobenzaprine (From Allergy Other Verified 10/30/25 14:11 Flexeril) tizanidine (From Zanaflex) Allergy Other Verified 10/30/25 14:11 Family History Sister Breast cancer Grandmother Diabetes Surgical History History of lumpectomy of left breast Hx of cholecystectomy Hx of cervical spine surgery Social History housing: assisted Smoking Status: Former smoker alcohol intake: never substance use type: does not use ROS ROS ED Review of Systems ROS Unobtainable: due to mental status Gastrointestinal Gastrointestinal: Reports abdominal pain Genitourinary Genitourinary ED: Reports other Details: Indwelling Barnes. EXAM Physical Exam Const Vital Signs: 10/30/25 14:08 10/30/25 15:07 10/30/25 15:11 Temperature 98.8 F 98.8 F Temperature Source Oral Oral Pulse Rate 65 58 L Respiratory Rate 16 18 Blood Pressure 103/66 116/51 L 116/51 L Blood Pressure Mean 78 72 72 Pulse Ox 100 100 Oxygen Delivery Method Room Air Nasal Cannula Oxygen Flow Rate (L/min) 2 10/30/25 16:00 10/30/25 17:00 10/30/25 17:40 Temperature 98.8 F Temperature Source Oral Pulse Rate 61 59 L 62 Respiratory Rate 18 Blood Pressure 111/51 L 111/48 L 112/53 L Blood Pressure Mean 71 69 72 Pulse Ox 100 100 100 Oxygen Delivery Method Nasal Cannula Nasal Cannula Oxygen Flow Rate (L/min) 2 2 10/30/25 17:41 Temperature 98.8 F Temperature Source Pulse Rate 62 Respiratory Rate 18 Blood Pressure 112/53 L Blood Pressure Mean 72 Pulse Ox 100 Oxygen Delivery Method Oxygen Flow Rate (L/min) Positive well nourished, well developed and obese General Appearance ED: well developed, NAD and pallor Nutritional Appearance: obese HEENT Reports dry mucous membranes HEENT Narrative: Head is atraumatic normocephalic ears normal. Nares patent. Posterior pharynx no erythema or exudate. Uvula midline. Neck is supple. Trachea is midline. There is no JVD. Mouth ED: Yes dry mucous membranes Mouth: dry mucous membranes Eyes PERRL and EOMs intact bilaterally General Eye ED: Negative for pale conjunctiva or scleral icterus Neck no lymphadenopathy, supple and no JVD Chest Wall inspection of chest normal Resp normal respiratory effort and clear to auscultation bilaterally Cardio regular rate, regular rhythm, S1 normal heart sound, S2 normal heart sound and no murmurs GI non-distended and no masses; Negative for non-tender or hepatosplenomegaly GI Narrative: Prior surgical scars noted. She has a large scar from a cholecystectomy. Auscultation: hypoactive bowel sounds Palpation: soft, tender LLQ, guarding LLQ and rebound tenderness present Back/Spine no CVA tenderness Extremity normal to inspection General Extremety ED: Negative for tenderness Neuro oriented x3 and CN's II-XII intact bilaterally Neuro Narrative: She is awake but not alert. Sensorium / Orientation: Negative for alert Psych mental status grossly normal Skin General Skin Exam: pallor MDM MDM MDM Narrative Medical decision making narrative: Patient has abscess due to perforated diverticulitis of the descending colon and sigmoid area with fistulization to the bladder and uterus. This was ordered as an outpatient by Dr. Raya. She was sent into the emergency room for further evaluation. Will obtain CBC to assess white count and H&H and she appears pale suspect she is anemic. Reviewing prior records she does have history of anemia. The anemia was not specified. BMP to assess her electrolytes, renal function, CO2 anion gap. UA was obtained. Since patient has mild peritoneal findings she was started on 4.5 g of Zosyn. Spoke with Dr. Flynn who is the general surgeon drafter (cad) electronic. Reviewed CT with him. He states this is not something that is normally done at [facility] recommend transfer to tertiary center because of the fistula formation with the bladder and uterus. History & Record Review Additional record(s) reviewed:: Prior ED visit and Prior labs Lab Data Attestation: I reviewed the patient's lab results. Lab results narrative: White count reveals an H&H of 8.5 and 29.0 with normal indices. RDW was slightly elevated. Electrolyte panel is marked for sodium 148 and a chloride of 100. CO2 is 39.4. She has had prior elevated CO2's levels. UA reveals occult blood positive nitrites positive bilirubin and urobilinogen. There is 10-25 RBCs with 0-5 WBCs and no bacteria. Labs: Laboratory Results - last 24 hr 10/30/25 10/30/25 10/30/25 15:10 15:26 16:15 WBC 4.5 RBC 3.12 L Hgb 8.5 L Hct 29.0 L MCV 92.9 MCH 27.2 MCHC 29.3 L RDW Std Deviation 48.6 H RDW Coeff of Amanda 14.4 Plt Count 111 L MPV 8.6 Immature Gran % (Auto) 0.400 Neut % (Auto) 68.2 Lymph % (Auto) 23.1 Cecil % (Auto) 6.3 Eos % (Auto) 1.8 Baso % (Auto) 0.2 Absolute Neuts (auto) 3.0 Absolute Lymphs (auto) 1.03 Nucleated RBC % 0 Sodium 148 H Potassium 4.2 Chloride 100 Carbon Dioxide 39.4 H Anion Gap 8 BUN 12 Creatinine 0.62 L Est GFR (MDRD) Non-Af 93 BUN/Creatinine Ratio 18.9 Glucose 119 H Lactic Acid 1.2 Calcium 8.9 Total Bilirubin 0.25 AST 15 ALT 7 Alkaline Phosphatase 72 Total Protein 6.8 Albumin 3.7 Globulin 3.1 Albumin/Globulin Ratio 1.2 Lipase 10 L Urine Color Yellow Urine Clarity Clear Urine pH 6.0 Ur Specific Cliff 1.010 Urine Protein 30 H Urine Glucose (UA) Normal Urine Ketones Negative Urine Occult Blood 25 H Urine Nitrite Positive H Urine Bilirubin 1 H Urine Urobilinogen 1 H Ur Leukocyte Esterase 100 H Urine RBC 10-25 SEEN Urine WBC 0-5 SEEN Ur Squamous Epith Cells 0 SEEN Urine Bacteria 0 SEEN Urine Mucus 0 SEEN POC Glucose 108 H Management Discussion w/another healthcare provider: Other (Spoke with personnel at [facility]. She will page general surgery for acceptance and transfer for definitive care.) Treatment and Re-Evaluation :: Spoke with general surgery at [facility] Dr. Katerina Capps. She requested ED to ED transfer. Spoke with the emergency physician Dr. Edison Hobson. Secondaries making arrangements for transfer to [facility]. Discharge Plan Triage Chief Complaint: Abd Pain ED Provider: Royce Vigil Dx/Rx/DC Orders Clinical Impression: Diverticulitis large intestine w/o perforation or abscess w/o bleeding, Enterovesical fistula, Bilateral hydronephrosis, Acute hypernatremia, Acute on chronic anemia, Splenic mass, Lung nodules, Iron deficiency anemia, Localized peritonitis Prescriptions: No Action ferrous sulfate 325 mg (65 mg iron) tablet 325 mg PO BID ondansetron HCl 4 mg tablet 4 mg PO Q8H PRN (Reason: nausea and vomiting) simethicone [Gas Relief (simethicone)] 80 mg tablet,chewable 80 mg PO DAILY Senna Plus 8.6-50 mg capsule 1 tab-cap PO QDAY sertraline 25 mg tablet 25 mg PO QDAY amoxicillin-pot clavulanate 875-125 mg tablet 1 tab PO BID acetaminophen 650 mg suppository 650 mg WI Q6H ipratropium-albuterol 0.5 mg-3 mg(2.5 mg base)/3 mL solution for nebulization continuous nebulization Patient Comments: [NO ORIGINAL SIG] carboxymethylcellulose sodium [Refresh Tears] 0.5 % drops 1 drp ophthalmic (eye) BID promethazine 25 mg tablet 25 mg PO TID PRN acetaminophen 325 mg Tablet 650 mg PO QHS glimepiride 1 mg tablet 0.5 mg PO DAILY phenazopyridine [Pyridium] 100 mg tablet 100 mg PO Q8H magnesium hydroxide 400 mg/5 mL suspension 30 ml PO DAILY PRN (Reason: constipation) dicyclomine 20 mg tablet 20 mg PO .qid Primary Care Provider: Jonathan Dillard Sr. Referrals: Jonathan Dillard Sr., [Primary Care Provider, [facility]] Print Language: Slovenian Disposition Disposition: Acute Care Hospital Discharge Location: [facility] Discharge Date/Time: 10/30/25 17:59
[2025-10-30] MEDS: Piperacil/Tazobactam 4.5 GM in 0.9% Normal Saline (100mL MB+) 100 ML IV (15:40)
[2025-10-30 15:49] LABS: Red Blood Cells-Urine 10-25 SEEN /hpf (0-5)
[2025-10-30 15:56] LABS: AST(SGOT) 15 U/L (<=31); Alanine Aminotransfer ALT/SGPT 7 U/L (<=34); Albumin, Serum 3.7 g/dL (3.4-4.8); Alkaline Phosphatase 72 U/L (35-104); Anion Gap 8 (5-15); BUN 12 mg/dL (4-19); BUN/Creat Ratio 18.9 RATIO (10-20); Calcium,Total 8.9 mg/dL (7.6-11.0); Carbon Dioxide 39.4 mmol/L (21.0-32.0); Chloride 100 mmol/L (98-108); Globulin 3.1 g/dL (2.2-4.2); Glucose 119 mg/dL (70-99); Lipase 10 U/L (13-75); Potassium 4.2 mmol/L (3.3-5.1)
--- NOTE | 2025-10-30 18:04 | ED.RN ---
[facility] updated on transfer.
--- NOTE | 2025-10-30 18:04 | ED.RN ---
Report called to [facility].
--- NOTE | 2025-10-30 18:06 | ED.RN ---
Attempted to call daughter multiple times to update on transfer. No answer.
== END 2025-10-30 17:59 | disposition short-term general hospital (02) ==
PROVIDERS: Emergency Provider Emergency Medicine; PCP Internal Medicine; Visit Provider Emergency Medicine
DX: K57.32 Diverticulitis of large intestine without perforation or abscess without bleeding (principal); I11.0 Hypertensive heart disease with heart failure; I50.9 Heart failure, unspecified; K65.9 Peritonitis, unspecified; J44.9 Chronic obstructive pulmonary disease, unspecified; E11.9 Type 2 diabetes mellitus without complications; E87.0 Hyperosmolality and hypernatremia; E78.00 Pure hypercholesterolemia, unspecified; Z87.891 Personal history of nicotine dependence; R16.1 Splenomegaly, not elsewhere classified; I25.10 Atherosclerotic heart disease of native coronary artery without angina pectoris; D50.9 Iron deficiency anemia, unspecified; N13.30 Unspecified hydronephrosis; I25.2 Old myocardial infarction; Z79.84 Long term (current) use of oral hypoglycemic drugs; Z90.49 Acquired absence of other specified parts of digestive tract; N32.1 Vesicointestinal fistula; R91.8 Other nonspecific abnormal finding of lung field
CPT/HCPCS: 80053; 81001; 82962; 83605; 83690; 85025; 96365; 99284